=== PATIENT | female | born 1935 | race Hispanic/Latino ===

== ENCOUNTER 2021-06-10 23:22 | Emergency (ER) | payer OTHER ==
--- OUTSIDE RECORDS SUMMARY | 2021-06-10 23:24 | XMS REPORT | Continuity of Care Document ---
:1935 Author Organization [facility] t Address 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 Essential Essential Problem Active Halima harmane hypertensi Hypertensi 05-22 Fa fredrick on on 00:00: Practic 00 e Gastroesop Gastroesop Problem Active [facility] hageal hageal 05-22 Family reflux Reflux 00:00: Practic disease Disease 00 e Arthritis Arthritis Problem Active Halima isabel 05-22 Family 00:00: Practic 00 e Allergies, Adverse Reactions, Alerts Allergy Allergy Status Severity Reaction(s) Onset Inactive Treating Comm ents Source Name Type Date Date Clinician Peniclli Adverse Active Info Not [facility] PENICILL Allergy Active [facility] to Family substanc Practic e e Social History Smoking Status Start Date Stop Date Source Never Smoker [facility] Medications Ordered Filled Start Stop Current Ordering Indication Dosage Frequency Signature Comments Components Source Medication Medication Date Date Medication? Clinician (SIG) Name Name Tramadol Tramadol Yes Jose Alberto [address] [facility] 6-30 [facility] anastrozole anastrozole No 1 Q1D anastrozol [place] 1 mg tablet 1 mg tablet e 1 mg Family Take 1 Take 1 tablet Practic tablet tablet Take 1 e every day every day tablet by oral by oral every day route. route. by oral route. hydrochloro hydrochloro No 1 Q1D hydrochlor [place] thiazide thiazide othiazide Rocio alcala 12.5 mg 12.5 mg 12.5 mg Practi c tablet Take tablet Take tablet e 1 tablet 1 tablet Take 1 every day every day tablet by oral by oral every day route. route. by oral route. Hydrochloro Hydrochloro Yes Jose Alberto not [facility] thiazide thiazide Ring defined [facility] omeprazole omeprazole No 1 Q1D omeprazole [place] 20 mg 20 mg 20 mg Family delayed delayed delayed Practi c release,dis release,dis release,di e integrating integrating sintegrati tablet Take tablet Take ng tablet 1 tablet 1 tablet Take 1 every day every day tablet by oral by oral every day route route by oral before before route meals. meals. before meals. Anastrozole Anastrozole Yes Jose Alberto not [facility] Ring defined [facility] Omeprazole Omeprazole Yes Jose Alberto not [facility] Ring defined [facility] Losartan Losartan Yes Jose Alberto not [facility] Potassium Potassium Ring defined Sofia [facility] Procedures This patient has no known procedures. Encounters Start End Encounter Admission Attending Care Care Encounter Source Date/Time Date/Time Type Type Clinicians Facility Department ID 2021-02-22 2021-02-22 [id number]:00 00:00:00 Iliana [id number] Mary [id number] 2020-10-06 2020-10-06 Outpatient [facility] [id number] [facility] 2020-09-29 2020-09-29 Outpatient [facility] [id number] [facility] 2020-09-22 2020-09-22 Outpatient [facility] [id number] [facility] 2020-09-10 2020-09-10 Out[facility] [id number] [facility] 2020-05-19 2020-05-19 [facility] [id number] [address] 08:30:00 08:30:00 [facility] 2020-02-24 2020-02-24 [facility] [id number] 14:30:00 14:30:00 [facility] 2020-02-18 2020-02-18 Rachel [facility] [place] - [id number] V illage 00:00:00 00:00:00 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 2020-01-29 2020-01-29 [facility] [id number] 14:19:00 14:19:00 [facility] 2020-01-28 2020-01-28 [facility] [id number] 10:45:00 10:45:00 [facility] 2019-06-12 2019-06-12 [facility] [id number] [address] 11:07:00 11:07:00 [facility] 2019-06-06 2019-06-06 [facility] [id number] 10:00:00 10:00:00 [facility] 2019-05-20 2019-05-20 [facility] [id number] 09:30:00 09:30:00 t Bone Bone and [facility] Clinics Results This patient has no known results.
[2021-06-11] MEDS ORDERED: cloNIDine HCL 0.1 MG TAB ONE (00:56)
--- NOTE | 2021-06-11 02:00 | EDPHYS ---
Physician Documentation [facility] Name: Kelly Phillips Age: 86 yrs Sex: Female : 1935 Arrival Date: 06/10/2021 Time: 23:24 Bed 20 Private MD: ED Physician Duc Chen HPI: 06/11 01:56 This 86 yrs old Female presents to ER via Ambulatory with complaints of High pkl Blood Pressure. 01:56 Onset: The symptoms/episode began/occurred today. Associated signs and symptoms: The pkl patient has no apparent associated signs or symptoms. Historical: - Allergies: 06/10 23:37 PENICILLINS; bs2 - Home Meds: 23:37 Unable to obtain [Active]; bs2 - PMHx: 23:37 Unable to Obtain; bs2 - PSHx: 23:37 tumor removal RT breast; bs2 - Immunization history:: Client reports receiving the 2nd dose of the Covid vaccine, Flu vaccine is up to date. - Social history:: Smoking status: Patient denies any tobacco usage or history of. ROS: 06/11 01:56 Eyes: Negative for injury, pain, redness, and discharge, ENT: Negative for injury, pkl pain, and discharge, Neck: Negative for injury, pain, and swelling. Cardiovascular: Positive for hypertension. Respiratory: Negative for cough, shortness of breath. Abdomen/GI: Negative for abdominal pain, nausea, vomiting, and diarrhea. Back: Negative for acute changes. : Negative for urinary symptoms. MS/extremity: Negative for acute changes. Skin: Negative for rash. Neuro: Negative for altered mental status, loss of consciousness. Exam: 01:56 Head/Face: Normocephalic, atraumatic. Eyes: Pupils equal round and reactive to light, pkl extra-ocular motions intact. Lids and lashes normal. Conjunctiva and sclera are non-icteric and not injected. Cornea within normal limits. Periorbital areas with no swelling, redness, or edema. ENT: Nares patent. No nasal discharge, no septal abnormalities noted. Tympanic membranes are normal and external auditory canals are clear. Oropharynx with no redness, swelling, or masses, exudates, or evidence of obstruction, uvula midline. Mucous membranes moist. Neck: Trachea midline, no thyromegaly or masses palpated, and no cervical lymphadenopathy. Supple, full range of motion without nuchal rigidity, or vertebral point tenderness. No Meningismus. Chest/axilla: Normal chest wall appearance and motion. Nontender with no deformity. No lesions are appreciated. Cardiovascular: Regular rate and rhythm with a normal S1 and S2. No gallops, murmurs, or rubs. Normal PMI, no JVD. No pulse deficits. Respiratory: Lungs have equal breath sounds bilaterally, clear to auscultation and percussion. No rales, rhonchi or wheezes noted. No increased work of breathing, no retractions or nasal flaring. Abdomen/GI: Soft, non-tender, with normal bowel sounds. No distension or tympany. No guarding or rebound. No evidence of tenderness throughout. Back: No spinal tenderness. No costovertebral tenderness. Full range of motion. Skin: Warm, dry with normal turgor. Normal color with no rashes, no lesions, and no evidence of cellulitis. MS/ Extremity: Pulses equal, no cyanosis. Neurovascular intact. Full, normal range of motion. Neuro: Awake and alert, GCS 15, oriented to person, place, time, and situation. Cranial nerves II-XII grossly intact. Motor strength 5/5 in all extremities. Sensory grossly intact. Cerebellar exam normal. Normal gait. Vital Signs: 06/10 23:33 BP 212 / 80; Pulse 108; Resp 16; Temp 97.6; Pulse Ox 99% on R/A; Weight 72.57 kg (R); bs2 Height 5 ft. 5 in. (165.10 cm); Pain 0/10; 06/11 00:15 BP 196 / 79; Pulse 98; Resp 16; Pulse Ox 98% on R/A; jb4 01:00 BP 197 / 85; Pulse 103; Resp 15; Pulse Ox 97% on R/A; jb4 01:42 BP 166 / 70; Pulse 97; Resp 16; Temp 98.0; Pulse Ox 98% ; ds4 06/10 23:33 Body Mass Index 26.63 (72.57 kg, 165.10 cm) bs2 MDM: 06/10 23:54 Patient medically screened. pkl 06/11 01:58 Data reviewed: vital signs, nurses notes. pkl Administered Medications: 00:40 Drug: cloNIDine 0.1 mg Route: PO; jb4 02:08 Follow up: Response: No adverse reaction; Marked relief of symptoms; Temperature is jb4 decreased Disposition Summary: 06/11/21 02:00 Discharge Ordered Location: Home pkl Problem: new pkl Symptoms: have improved pkl Condition: Stable pkl Diagnosis - Hypertension pkl Followup: pkl - With: Private Physician - When: 1 week - Reason: Re-evaluation by your physician Discharge Instructions: - Discharge Summary Sheet pkl Forms: - Medication Reconciliation Form pkl - Thank You Letter pkl - Antibiotic Education pkl - Prescription Opioid Use pkl Prescriptions: - Carvedilol 12.5 mg Oral Tablet - take 1 tablet by ORAL route 2 times per day with food; 60 tablet; Refills: 0, pkl Product Selection Permitted Signatures: Duc Chen MD MD pkl Saeed Rojas, RN RN jb4 Joycelyn Wells RN RN bs2
--- NOTE | 2021-06-11 02:00 | ER ---
Nurse's Notes [facility] Name: Kelly Phillips Age: 86 yrs Sex: Female : 1935 Arrival Date: 06/10/2021 Time: 23:24 Bed 20 Private MD: Diagnosis: Hypertension Presentation: 06/10 23:33 Chief complaint: Spouse and/or significant other states: high blood pressure 237/84 at bs2 home, no hx of medications. Coronavirus screen: At this time, the client does not indicate any symptoms associated with coronavirus-19. Ebola Screen: Patient negative for fever greater than or equal to 101.5 degrees Fahrenheit, and additional compatible Ebola Virus Disease symptoms Patient denies exposure to infectious person. Patient denies travel to an Ebola-affected area in the 21 days before illness onset. No symptoms or risks identified at this time. Initial Sepsis Screen: Does the patient meet any 2 criteria? No. Patient's initial sepsis screen is negative. Does the patient have a suspected source of infection? No. Patient's initial sepsis screen is negative. Risk Assessment: Do you want to hurt yourself or someone else? Patient reports no desire to harm self or others. Onset of symptoms was June 10, 2021. 23:33 Method Of Arrival: Ambulatory bs2 23:33 Acuity: JASMINA 3 bs2 Triage Assessment: 23:37 General: Appears in no apparent distress. comfortable, obese, well groomed, well bs2 developed, well nourished, Behavior is calm, cooperative, appropriate for age. Pain: Denies pain. Historical: - Allergies: 23:37 PENICILLINS; bs2 - Home Meds: 23:37 Unable to obtain [Active]; bs2 - PMHx: 23:37 Unable to Obtain; bs2 - PSHx: 23:37 tumor removal RT breast; bs2 - Immunization history:: Client reports receiving the 2nd dose of the Covid vaccine, Flu vaccine is up to date. - Social history:: Smoking status: Patient denies any tobacco usage or history of. Screenin:45 Abuse screen: Denies threats or abuse. Nutritional screening: No deficits noted. jb4 Tuberculosis screening: No symptoms or risk factors identified. 23:45 Fall Risk None identified. jb4 Assessment: 23:45 General: Appears in no apparent distress. comfortable, Behavior is calm, cooperative. jb4 Pain: Denies pain. Neuro: Level of Consciousness is awake, alert, obeys commands, Oriented to person, place, time, situation. Cardiovascular: Patient's skin is warm and dry. Respiratory: Airway is patent Respiratory effort is even, unlabored, Respiratory pattern is regular, symmetrical. GI: No signs and/or symptoms were reported involving the gastrointestinal system. : No signs and/or symptoms were reported regarding the genitourinary system. EENT: No signs and/or symptoms were reported regarding the EENT system. Derm: Skin is intact, Skin is pink, warm \T\ dry. Musculoskeletal: Circulation, motion, and sensation intact. Range of motion: intact in all extremities. 06/11 01:00 Reassessment: Patient appears in no apparent distress at this time. Patient and/or jb4 family updated on plan of care and expected duration. Pain level reassessed. Patient is alert, oriented x 3, equal unlabored respirations, skin warm/dry/pink. 02:06 Reassessment: Patient appears in no apparent distress at this time. Patient and/or jb4 family updated on plan of care and expected duration. Pain level reassessed. Patient is alert, oriented x 3, equal unlabored respirations, skin warm/dry/pink. Vital Signs: 06/10 23:33 BP 212 / 80; Pulse 108; Resp 16; Temp 97.6; Pulse Ox 99% on R/A; Weight 72.57 kg (R); bs2 Height 5 ft. 5 in. (165.10 cm); Pain 0/10; 06/11 00:15 BP 196 / 79; Pulse 98; Resp 16; Pulse Ox 98% on R/A; jb4 01:00 BP 197 / 85; Pulse 103; Resp 15; Pulse Ox 97% on R/A; jb4 01:42 BP 166 / 70; Pulse 97; Resp 16; Temp 98.0; Pulse Ox 98% ; ds4 06/10 23:33 Body Mass Index 26.63 (72.57 kg, 165.10 cm) bs2 ED Course: 06/10 23:24 Patient arrived in ED. cf2 23:36 Triage completed. bs2 23:37 Arm band placed on right wrist. bs2 23:45 Patient has correct armband on for positive identification. Bed in low position. Call jb4 light in reach. Side rails up X 1. Pulse ox on. NIBP on. 23:54 Duc Chen MD is Attending Physician. pkl 06/11 00:20 Saeed Rojas, RN is Primary Nurse. jb4 02:07 No provider procedures requiring assistance completed. Patient did not have IV access jb4 during this emergency room visit. Administered Medications: 00:40 Drug: cloNIDine 0.1 mg Route: PO; jb4 02:08 Follow up: Response: No adverse reaction; Marked relief of symptoms; Temperature is jb4 decreased Outcome: 02:00 Discharge ordered by . pkl 02:07 Discharged to home via wheelchair, with family. jb4 02:07 Condition: stable 02:07 Discharge instructions given to patient, family, Instructed on discharge instructions, follow up and referral plans. medication usage, Demonstrated understanding of instructions, follow-up care, medications, Prescriptions given X 1. 02:08 Patient left the ED. jb4 Signatures: Duc Chen MD MD pkl Daniel Brock ds4 Saeed Rojas, RN RN jb4 Taylor Márquez cf2 Joycelyn Wells RN RN bs2
[2021-06-11 04:11] VITALS: BP 166/70; TEMP 98; O2SAT 98
== END 2021-06-11 02:08 | disposition home or self-care (01) ==
LOC: ER 23:22
DX: I10 Essential (primary) hypertension (principal); Z88.0 Allergy status to penicillin
CPT/HCPCS: 99283

== ENCOUNTER 2021-10-24 20:15 | Emergency (ER) | payer OTHER ==
--- OUTSIDE RECORDS SUMMARY | 2021-10-24 20:18 | XMS REPORT | Continuity of Care Document ---
:1935 Author Organization [facility] t Address [address] [place] [address] Care Team Providers Name Role Phone Love-Concepcióno_A_AH Attending Clinician Unavailable Canales_M Attending Clinician Unavailable Mary Hollins Attending Clinician [phone] Love-Magdaayo_A_AH Admitting Clinician Unavailable Canales_M Admitting Clinician Unavailable Payers Payer Name Policy Type Policy Number Effective Date Expiration Date S stanley [facility] [place] - [id number] 2019 [employer] (MEDICARE 00:00:00 REPLACEMENT/ADVANTA GE - HMO) [facility] [id number] 2021 (MEDICARE 00:00:00 REPLACEMENT HMO) Problems Condition Condition Condition Status Onset Resolution Last Treating Co mments Source Name Details Category Date Date Treatment Clinician Date 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 Clinician (SIG) Name Name Tramadol Tramadol Yes Jose Alberto [address] [facility] HCl HCl 6-30 [facility] Clinics Hydrochloro Hydrochloro Yes Jose Alberto not [facility] thiazide thiazide Ring defined [facility] Clinics Anastrozole Anastrozole Yes Jose Alberto not [facility] Ring defined [facility] Clinics Omeprazole Omeprazole Yes Jose Alberto not [facility] Ring defined [facility] Clinics Losartan Losartan Yes Jose Alberto not [facility] Potassium Potassium Ring defined Sofia kes - [facility] ent Clinics anastrozole anastrozole No 1 Q1D anastrozol [place] 1 mg tablet 1 mg tablet e 1 mg Family Take 1 Take 1 tablet Practic tablet tablet Take 1 e every day every day tablet by oral by oral every day route. route. by oral route. hydrochloro hydrochloro No 1 Q1D hydrochlor [place] thiazide thiazide othiazide Fa fredrick 12.5 mg 12.5 mg 12.5 mg Practi c tablet Take tablet Take tablet e 1 tablet 1 tablet Take 1 every day every day tablet by oral by oral every day route. route. by oral route. omeprazole omeprazole No 1 Q1D omeprazole [facility] 20 mg 20 mg 20 mg Family delayed delayed delayed Practi c release,dis release,dis release,di e integrating integrating sintegrati tablet Take tablet Take ng tablet 1 tablet 1 tablet Take 1 every day every day tablet by oral by oral every day route route by oral before before route meals. meals. before meals. Procedures This patient has no known procedures. Encounters Start End Encounter Admission Attending Care Care Encounter Source Date/Time Date/Time Type Type Clinicians Facility Department ID 2021-05-17 2021-05-17 Outpatient Cachorro MARIE [facility]FP [id number] [facility] 02:54:00 02:54:00 _A_AH [id number] Family Practic e 2021-02-22 2021-02-22 [place] [id number] [facility] 11:38:00 11:38:00 0405 [facility] 2021-02-22 2021-02-22 Outpatient Hollins, DMG DMG [id number] 00:00:00 00:00:00 Iliana [id number] Mary [id number] 2021-02-19 2021-02-19 [id number] [facility] 11:15:00 11:15:00 0402 Medica l Group 2020-10-06 2020-10-06 Outpatient [facility] [id number] [facility] 2020-09-29 2020-09-29 Outpatient [facility] [id number] [facility] 2020-09-22 2020-09-22 Outpatient [facility] [id number] [facility] 2020-09-10 2020-09-10 Outpatient [facility]ML[facility] [id number] [facility] 2020-05-19 2020-05-19 [facility] [id number] [facility] 08:30:00 08:30:00 [facility] Clinics 2020-04-30 2020-04-30 Outpatient Love-Mbayo VFP VFP [address] [place] [address] 11:59:00 11:59:00 _A_AH [id number] Family Practic e 2020-04-20 2020-04-20 Outpatient Love-Mbayo VFP [facility]FP [address] [place] [address] 06:26:00 06:26:00 _A_AH [id number] Family Practic e 2020-03-30 2020-03-30 Outpatient Love-Mbayo VFP VFP [id number] 02:45:00 02:45:00 _A_AH [id number] Family Practic e 2020-02-24 2020-02-24 [facility] [id number] [address] 14:30:00 14:30:00 [facility] 2020-02-18 2020-02-18 Rachel [facility] [place] - [id number] V illage 00:00:00 00:00:00 [facility] 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 2020-01-29 2020-01-29 [facility] [id number] [address] 14:19:00 14:19:00 [facility] 2020-01-28 2020-01-28 [facility] [id number] 10:45:00 10:45:00 t [facility] [place] 2020-01-08 2020-01-08 Outpatient Cachorro [facility] [id number] [facility] 07:20:00 07:20:00 _A_AH [id number] Family Practic e 2019-06-12 2019-06-12 [facility] [id number] [facility] 11:07:00 11:07:00 [facility] 2019-06-06 2019-06-06 [facility] [id number] 10:00:00 10:00:00 [facility] 2019-05-20 2019-05-20 [facility] [id number] 09:30:00 09:30:00 [facility] Results This patient has no known results.
[2021-10-24] MEDS ORDERED: ACETAMINOPHEN 500 MG TAB ONE (21:20)
--- NOTE | 2021-10-25 00:10 | EDPHYS ---
Physician Documentation [facility] Name: Kelly Phillips Age: 86 yrs Sex: Female : 1935 Arrival Date: 10/24/2021 Time: 20:17 Bed 2 Private MD: ED Physician iMchael Harris HPI: 10/24 21:20 This 86 yrs old Female presents to ER via Wheelchair with complaints of Joint mh7 Pain all over. 21:20 Details of fall: The patient fell from an upright position, while walking, and struck a mh7 concrete surface. Onset: The symptoms/episode began/occurred today, 3 hour(s) ago. Associated injuries: The patient sustained right elbow, abrasion, painful injury, Right knee, contusion, painful injury. Severity of symptoms: At their worst the symptoms were mild, earlier today, in the emergency department the symptoms are unchanged, Did not take pain medication. Patient tripped and fell over a brick while outside walking this evening. She landed on her right elbow and right knee. Denies any head trauma or LOC. Denies any symptoms prior to falling including headache, neck pain, chest pain, abdominal pain, shortness of breath, nausea, vomiting, dizziness, numbness/tingling, or weakness. Family brought her to the ED due to her blood pressure being elevated at home after a fall. She has not taken any pain medication for her injuries.. Historical: - Allergies: 21:03 PENICILLINS; vg1 - Home Meds: 21:12 losartan 100 mg oral tab 1 tab nightly [Active]; hydrochlorothiazide 12.5 mg Oral cap 1 tw5 cap once daily [Active]; amlodipine 5 mg tab 1 tab once daily [Active]; carvedilol 12.5 mg oral tab 1 tab 2 times per day [Active]; omeprazole 20 mg Oral cpDR 1 cap once daily [Active]; - PSHx: 21:03 tumor removal RT breast; vg1 - Immunization history:: Client reports receiving the 2nd dose of the Covid vaccine. - Social history:: Smoking status: Patient denies any tobacco usage or history of. ROS: 21:20 Constitutional: Negative for fever, chills, and weight loss, Eyes: Negative for injury, mh7 pain, redness, and discharge, ENT: Negative for injury, pain, and discharge, Neck: Negative for injury, pain, and swelling, Cardiovascular: Negative for chest pain, palpitations, and edema, Respiratory: Negative for shortness of breath, cough, wheezing, and pleuritic chest pain, Abdomen/GI: Negative for abdominal pain, nausea, vomiting, diarrhea, and constipation, Back: Negative for injury and pain, : Negative for injury, bleeding, discharge, and swelling, Neuro: Negative for headache, weakness, numbness, tingling, and seizure, Psych: Negative for depression, anxiety, suicide ideation, homicidal ideation, and hallucinations, Allergy/Immunology: Negative for hives, rash, and allergies, Endocrine: Negative for neck swelling, polydipsia, polyuria, polyphagia, and marked weight changes, Hematologic/Lymphatic: Negative for swollen nodes, abnormal bleeding, and unusual bruising. Exam: 21:20 Constitutional: This is a well developed, well nourished patient who is awake, alert, mh7 and in no acute distress. Head/Face: Normocephalic, atraumatic. Eyes: Pupils equal round and reactive to light, extra-ocular motions intact. Lids and lashes normal. Conjunctiva and sclera are non-icteric and not injected. Cornea within normal limits. Periorbital areas with no swelling, redness, or edema. Neck: Trachea midline, no thyromegaly or masses palpated, and no cervical lymphadenopathy. Supple, full range of motion without nuchal rigidity, or vertebral point tenderness. No Meningismus. Chest/axilla: Normal chest wall appearance and motion. Nontender with no deformity. No lesions are appreciated. Cardiovascular: Regular rate and rhythm with a normal S1 and S2. No gallops, murmurs, or rubs. Normal PMI, no JVD. No pulse deficits. Respiratory: Lungs have equal breath sounds bilaterally, clear to auscultation and percussion. No rales, rhonchi or wheezes noted. No increased work of breathing, no retractions or nasal flaring. Abdomen/GI: Soft, non-tender, with normal bowel sounds. No distension or tympany. No guarding or rebound. No evidence of tenderness throughout. Back: No spinal tenderness. No costovertebral tenderness. Full range of motion. 21:20 Neuro: Awake and alert, GCS 15, oriented to person, place, time, and situation. Cranial nerves II-XII grossly intact. Motor strength 5/5 in all extremities. Sensory grossly intact. Cerebellar exam normal. Normal gait. Psych: Awake, alert, with orientation to person, place and time. Behavior, mood, and affect are within normal limits. 21:20 Musculoskeletal/extremity: Extremities: noted in the right elbow: abrasion, tenderness, Mild, noted in the Right anterior knee: contusion, pain, tenderness, Mild, ROM: intact in all extremities, Circulation is intact in all extremities. Sensation intact. Compartment Syndrome exam of affected extremity: is normal. no numbness, no tingling, no sensation deficit, no palor, no weak pulses, Joints: the right elbow displays tenderness, the right knee displays tenderness, Weight bearing: can bear weight with assistance only, uses walker, Tendon exam: specific tendon testing normal through active and passive range of motion 21:20 Skin: injury, abrasion(s), very small abrasion noted, of the right elbow, contusion(s), that are superficial, of the Right anterior knee. Vital Signs: 21:01 BP 154 / 57; Pulse 70; Resp 16; Temp 97.4; Pulse Ox 100% ; Weight 75.3 kg; Height 5 ft. vg1 5 in. (165.10 cm); 21:09 BP 172 / 63; Pulse 92; Resp 18; Pulse Ox 96% on R/A; tw5 22:39 BP 145 / 58; Pulse 70; Resp 18 S; Pulse Ox 97% on R/A; as6 12 00:20 BP 130 / 61; Pulse 71; Resp 18 S; Pulse Ox 99% on R/A; as6 10/24 21:01 Body Mass Index 27.62 (75.30 kg, 165.10 cm) vg1 MDM: 00:07 Differential diagnosis: abrasion, contusion, fracture. Data reviewed: vital signs, 7 nurses notes, radiologic studies, plain films. Data interpreted: Pulse oximetry: on room air is 97 %. Interpretation: normal. Counseling: I had a detailed discussion with the patient and/or guardian regarding: the historical points, exam findings, and any diagnostic results supporting the discharge/admit diagnosis, the presence of at least one elevated blood pressure reading (>120/80) during this emergency department visit, radiology results, the need for outpatient follow up, to return to the emergency department if symptoms worsen or persist or if there are any questions or concerns that arise at home. Response to treatment: the patient's symptoms have markedly improved after treatment. 00:[address] [facility] 10/24 21:16 Order name: Knee Right [address] [facility] Administered Medications: 10/24 21:22 Drug: Tylenol 1000 mg Route: PO; as6 21:43 Follow up: Response: No adverse reaction as6 Disposition Summary: 10/25/21 00:09 Discharge Ordered Location: Home [facility] Problem: [facility] Symptoms: have improved mh Condition: Stable [facility] Diagnosis - Contusion of right knee mh7 - Pain in right elbow mh7 - Fall on same level from slipping, tripping and stumbling with subsequent striking 7 against object Followup: [facility] - With: Private Physician - When: 1 - 2 days - Reason: Worsening of condition, Recheck today's complaints, Continuance of care, Re-evaluation by your physician Followup: [facility] - With: Jimi Martin MD - When: 1 - 2 days - Reason: Worsening of condition, Recheck today's complaints Discharge Instructions: - Discharge Summary Sheet 7 - Joint Pain 7 - Contusion, [id number] 7 - Fall Prevention in the Home, Adult, [id number] [facility] Forms: - Medication Reconciliation Form [facility] - Thank You Letter [facility] - Antibiotic Education 7 - Prescription Opioid Use [facility] Signatures: Dispatcher [employer] EDSabrina Lopez RN RN vg1 Michael Harris MD MD 7 Charley Tinajero tw5 Garland Rubi RN RN as6 Corrections: (The following items were deleted from the chart) 22:10 21:17 Elbow Right 3 View+RAD.RAD.BRZ ordered. EDMS EDMS
--- NOTE | 2021-10-25 00:10 | ER ---
Nurse's Notes [facility] Name: Kelly Phillips Age: 86 yrs Sex: Female : 1935 Arrival Date: 10/24/2021 Time: 20:17 Bed 2 Private MD: Diagnosis: Contusion of right knee;Pain in right elbow;Fall on same level from slipping, tripping and stumbling with subsequent striking against object Presentation: 10/24 20:58 Chief complaint: Chief complaint: Spouse and/or significant other states: pt fell vg1 today, tripped over a brick and fell onto Right knee and Right elbow. Denies hitting head, or LOC. states pt BP was 200s systolic. 21:01 Coronavirus screen: Vaccine status: Patient reports receiving the 2nd dose of the covid vg1 vaccine. Ebola Screen: Patient negative for fever greater than or equal to 101.5 degrees Fahrenheit, and additional compatible Ebola Virus Disease symptoms. Initial Sepsis Screen: Does the patient meet any 2 criteria? No. Patient's initial sepsis screen is negative. Does the patient have a suspected source of infection? No. Patient's initial sepsis screen is negative. Risk Assessment: Do you want to hurt yourself or someone else? Patient reports no desire to harm self or others. Onset of symptoms was October 24, 2021. 21:01 Method Of Arrival: Wheelchair vg1 21:01 Acuity: JASMINA 3 vg1 Triage Assessment: 21:03 General: Appears in no apparent distress. comfortable, Behavior is calm, cooperative. vg1 Pain: Complains of pain in Right knee and right elbow. Historical: - Allergies: 21:03 PENICILLINS; vg1 - Home Meds: 21:12 losartan 100 mg oral tab 1 tab nightly [Active]; hydrochlorothiazide 12.5 mg Oral cap 1 tw5 cap once daily [Active]; amlodipine 5 mg tab 1 tab once daily [Active]; carvedilol 12.5 mg oral tab 1 tab 2 times per day [Active]; omeprazole 20 mg Oral cpDR 1 cap once daily [Active]; - PSHx: 21:03 tumor removal RT breast; vg1 - Immunization history:: Client reports receiving the 2nd dose of the Covid vaccine. - Social history:: Smoking status: Patient denies any tobacco usage or history of. Screenin:10 Abuse screen: Denies threats or abuse. Denies injuries from another. Nutritional tw5 screening: No deficits noted. Tuberculosis screening: No symptoms or risk factors identified. Fall Risk Fall in past 12 months (25 points). Assessment: 21:11 General: Appears in no apparent distress. comfortable, Behavior is calm, cooperative, tw5 appropriate for age. Neuro: Level of Consciousness is awake, alert, obeys commands, Oriented to person, place, time. Derm:. Derm: Skin is intact, Skin is dry. Injury Description: Abrasion sustained to right elbow was sustained 2-4 hours ago. 23:45 Reassessment: No changes from previously documented assessment. Patient and/or family tw5 updated on plan of care and expected duration. Pain level reassessed. Patient is alert, oriented x 3, equal unlabored respirations, skin warm/dry/pink. Vital Signs: 21:01 BP 154 / 57; Pulse 70; Resp 16; Temp 97.4; Pulse Ox 100% ; Weight 75.3 kg; Height 5 ft. vg1 5 in. (165.10 cm); 21:09 BP 172 / 63; Pulse 92; Resp 18; Pulse Ox 96% on R/A; tw5 22:39 BP 145 / 58; Pulse 70; Resp 18 S; Pulse Ox 97% on R/A; as6 1206 00:20 BP 130 / 61; Pulse 71; Resp 18 S; Pulse Ox 99% on R/A; as6 12/05 21:01 Body Mass Index 27.62 (75.30 kg, 165.10 cm) vg1 ED Course: 10/24 20:17 Patient arrived in ED. wm 21:03 Triage completed. vg1 21:03 Michael Harris MD is Attending Physician. mh7 21:03 Arm band placed on. vg1 21:09 Charley Tinajero is Primary Nurse. tw5 21:10 Patient has correct armband on for positive identification. Placed in gown. Bed in low tw5 position. Call light in reach. Side rails up X 1. Adult w/ patient. Pulse ox on. NIBP on. Door closed. Noise minimized. Moved to private room. 22:11 Knee Right 3 View XRAY In Process Unspecified. EDMS 23:45 Assisted to bathroom. tw5 10/25 00:10 Jimi Martin MD is Referral Physician. mh7 00:21 No provider procedures requiring assistance completed. Patient did not have IV access as6 during this emergency room visit. Administered Medications: 10/24 21:22 Drug: Tylenol 1000 mg Route: PO; as6 21:43 Follow up: Response: No adverse reaction as6 Outcome: 10/25 00:09 Discharge ordered by . 7 00:21 Discharged to home via wheelchair, with family. as6 00:21 Condition: stable 00:21 Discharge instructions given to patient, Instructed on discharge instructions, follow up and referral plans. Demonstrated understanding of instructions, follow-up care. 00:21 Patient left the ED. as6 Signatures: Dispatcher [employer] EDMS Sabrina Calabrese RN RN vg1 Michael Harrsi MD MD 7 Apoorva Stallings Tiffany tw5 Garland Rubi RN RN as6 Corrections: (The following items were deleted from the chart) 10/24 21:03 20:58 Chief complaint: vg1 vg1
[2021-10-25 00:30] VITALS: TEMP 97.4
[2021-10-25 00:34] VITALS: BP 130/61; O2SAT 99
--- NOTE | 2021-10-25 11:28 | RAD REPORT ---
EXAM DESCRIPTION: RIGHT KNEE, 3 VIEW, XR. CLINICAL HISTORY: Pain after fall. COMPARISON: None. TECHNIQUE: AP, lateral and oblique views of the right knee. FINDINGS: There is no acute fracture or effusion in the right knee. No dislocation. Significant narr owing of the lateral compartment with subchondral sclerosis and moderate bony hypertrophy. Mild hyper trophic changes are seen along the medial distal femur and proximal tibia. There is normal bone test examiner alization. Vascular calcifications are present in the distal right thigh. IMPRESSION: 1. No acute finding within the right knee. 2. Significant lateral compartment osteoarthritis. Electronically signed by: Pily Jacobsen DO 10/24/2021 11:20 PM TILE LAYER DRAINAGE Due to temporary technical issues with the PACS/Fluency reporting system, reports are being signed by the in house radiologist without review as a courtesy to ensure prompt reporting. The interpreting r adiologist is fully responsible for the content of the report.
== END 2021-10-25 00:21 | disposition home or self-care (01) ==
LOC: ER 20:15
DX: S80.01XA Contusion of right knee, initial encounter (principal); M25.521 Pain in right elbow; W01.198A Fall on same level from slipping, tripping and stumbling with subsequent striking against other object, initial encounter; Y93.01 Activity, walking, marching and hiking; Z88.0 Allergy status to penicillin
CPT/HCPCS: 99284

== ENCOUNTER 2022-02-09 22:35 | Emergency (ER) | payer MEDICARE ==
--- OUTSIDE RECORDS SUMMARY | 2022-02-09 22:39 | XMS REPORT | Continuity of Care Document ---
:1935 Author Organization [facility] t Address [address] [place] [address] Care Team Providers Name Role Phone Gurvinder_Patricia Attending Clinician Unavailable Love-Mbayo_A_AH Attending Clinician Unavailable Mary Hollins Attending Clinician [phone] Prudence Gaston Admitting Clinician Unavailable Gurvinder_Patricia Admitting Clinician Unavailable Love-Mbayo_A_AH Admitting Clinician Unavailable Payers Payer Name Policy Type Policy Number Effective Date Expiration Date S [facility] [id number] 2021 (MEDICARE 00:00:00 REPLACEMENT HMO) [facility] [id number] 2019 [employer] (MEDICARE 00:00:00 REPLACEMENT/ADVANTA GE - HMO) Problems Condition Condition Condition Status Onset Resolution Last Treating Co mments Source Name Details Category Date Date Treatment Clinician Date Primary Primary Problem 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 Social History Smoking Status Start Date Stop Date Source Never Smoker [facility] Medications Ordered Filled Start Stop Current Ordering Indication Dosage Frequency Signature Comments Components Source Medication Medication Date Date Medication? Clinician (SIG) Name Name Tramadol Tramadol Yes Jose Alberto [address] [facility] HCl HCl 6-30 [facility] 00 [facility] anastrozole anastrozole No 1 Q1D anastrozol [place] [...] route. omeprazole omeprazole No 1 Q1D omeprazole [facility] 20 mg 20 mg 20 mg Family delayed delayed delayed Practi c release,dis release,dis release,di e integrating integrating sintegrati tablet Take tablet Take ng tablet 1 tablet 1 tablet Take 1 every day every day tablet by oral by oral every day route route by oral before before route meals. meals. before meals. Hydrochloro Hydrochloro Yes Jose Alberto not [facility] thiazide thiazide Ring defined [facility] ent [facility] Anastrozole Anastrozole Yes Jose Alberto not [facility] Ring defined [facility] ent [facility] Omeprazole Omeprazole Yes Jose Alberto not [facility] Ring defined [facility] Losartan Losartan Yes Jose Alberto not [facility] Potassium Potassium Ring defined [facility] Procedures This patient has no known procedures. Encounters Start End Encounter Admission Attending Care Care Encounter Source Date/Time Date/Time Type Type Clinicians Facility Department ID 2022-02-08 Outpatient [facility] [id number] [facility] 16:02[facility]01 [facility] 2021-12-15 Outpatient [facility] [id number] [facility] 12:01:20 [id number] kes - [facility] ent Clinics 2021-12-15 Outpatient [facility] [id number] [facility] 11:54:02 [id number] [facility] 2021-11-11 2021-11-11 [place] [id number] [facility] 10:30:00 10:30:00 1223 [facility] l [facility] 2021-05-17 2021-05-17 Outpatient LoveAdelfonarennilda [facility] [address] [place] [address] 02:54:00 02:54:00 _A_AH [id number] Family Practic e 2021-02-22 2021-02-22 [place] [id number] [facility] 11:38:00 11:38:00 0405 Med[facility] l [facility] 2021-02-22 2021-02-22 Outpatient Hollins, DMG DMG [id number] 00:00:00 00:00:00 Iliana [id number] Mary [id number] 2021-02-19 2021-02-19 [place] [id number] [facility] 11:15:00 11:15:00 0402 Medica l Group 2020-10-06 2020-10-06 Outpatient [facility] [id number] [facility] 2020-09-29 2020-09-29 Outpatient [facility] [id number] [facility] 2020-09-22 2020-09-22 Outpatient [facility] [id number] [facility] 2020-09-10 2020-09-10 Outpatient [facility] [id number] [facility] 2020-05-19 2020-05-19 [facility] [id number] 08:30:00 08:30:00 [facility] 2020-04-30 2020-04-30 Outpatient [facility] [address] 11:59:00 11:59:00 _A_AH [id number] Family Practic e 2020-04-20 2020-04-20 Outpatient [facility] [id number] 06:26:00 06:26:00 _A_AH [id number] Family Practic e 2020-03-30 2020-03-30 Outpatient Love-Concepcióno [facility]FP [facility] [address] [place] [address] 02:45:00 02:45:00 _A_AH [id number] Family Practic e 2020-02-24 2020-02-24 [facility] [id number] [address] 14:30:00 14:30:00 [facility] ent [facility] 2020-02-18 2020-02-18 Rachel P [place] - [id number] V illage 00:00:00 00:00:00 LoveJessie [facility] Fam ryan munguia DRY CHAIN PULLER: Medical - Practi c [address] _HOU_V@_ e [facility], [address] [address], [place] [address] , Ph. 2020-01-29 2020-01-29 [facility] [id number] [address] 14:19:00 14:19:00 [facility] ent Clinics 2020-01-28 2020-01-28 [facility] [id number] 10:45:00 10:45:00 t [facility] ent Clinics 2020-01-08 2020-01-08 Outpatient Love-Concepcióno VFP P [address] [place] [address] 07:20:00 07:20:00 _A_AH [id number] Family Practic e 2019-06-12 2019-06-12 [facility] [id number] [address] 11:07:00 11:07:00 t [facility] Clin[facility] 2019-06-06 2019-06-06 Outpatient Lynne Bhatt [id number] [address] 10:00:00 10:00:00 t [facility] ent [facility] 2019-05-20 2019-05-20 Outpatient Lynne Bhatt [id number] 09:30:00 09:30:00 t [facility] ent [facility] Results This patient has no known results.
[2022-02-10 01:21] LABS: Absolute Lymphocytes (CBC) 1.2 K/uL (0.7-4.9); Hematocrit 36.1 % (36.0-45.0); Lymphocytes % 12.6 % (15.3-44.8); MPV 7.7 fL (7.6-11.3); RBC Red Blood Cell Count 4.47 M/uL (3.86-4.86)
[2022-02-10 01:22] LABS: Protime INR 1.04
[2022-02-10 01:33] LABS: Albumin 3.9 g/dL (3.4-5.0); Bilirubin Direct 0.2 mg/dL (0-0.2); Bilirubin Total 0.8 mg/dL (0.2-1.0); Potassium 3.8 mmol/L (3.5-5.1); Protein, Total 7.4 g/dL (6.4-8.2); Troponin High Sensitivity 27.2 pg/mL (<58.9)
[2022-02-10 01:34] LABS: Magnesium 1.7 mg/dL (1.8-2.4)
[2022-02-10] MEDS ORDERED: MAGNESIUM SULFATE 1 gm IVPB 1 GM/100 ML BAG IV ONE (02:02)
[2022-02-10] MEDS ORDERED: HYDRALAZINE HCL 20 MG/ML VIAL ONE (02:12)
--- NOTE | 2022-02-10 02:49 | EDPHYS ---
Physician Documentation [facility] Name: Kelly Phillips Age: 86 yrs Sex: Female : 1935 Arrival Date: 02/09/2022 Time: 22:40 Bed 2 Private MD: Levi Rosa E ED Physician Delvis Robbins HPI: 02/10 02:37 This 86 yrs old Female presents to ER via Wheelchair with complaints of jr8 Abdominal Pain. 02:37 The patient presents with abdominal pain in the epigastric area. Onset: The jr8 symptoms/episode began/occurred acutely. The symptoms do not radiate. Associated signs and symptoms: none. The symptoms are described as stabbing. Modifying factors: The symptoms are alleviated by nothing, the symptoms are aggravated by nothing. Severity of pain: At its worst the pain was mild in the emergency department the pain is unchanged. The patient has not experienced similar symptoms in the past. The patient has not recently seen a physician. Historical: - Allergies: 02/09 23:09 PENICILLINS; ss7 - Home Meds: 23:09 omeprazole 20 mg Oral cpDR 1 cap once daily [Active]; hydrochlorothiazide 12.5 mg Oral ss7 cap 1 cap once daily [Active]; losartan 100 mg Oral tab 1 tab nightly [Active]; carvedilol 12.5 mg Oral tab 1 tab 2 times per day [Active]; amlodipine 5 mg tab 1 tab once daily [Active]; anastrozole 1 mg oral tab 1 tab once daily [Active]; - PMHx: 23:09 Hypertensive disorder; gerd; ss7 - PSHx: 23:09 tumor removal RT breast; ss7 23:12 Appendectomy; ss7 - Immunization history:: Adult Immunizations Client reports receiving the 2nd dose of the Covid vaccine, Pneumococcal vaccine is not up to date, Flu vaccine is up to date. - Social history:: Smoking status: Patient denies any tobacco usage or history of. ROS: 02/10 02:37 Eyes: Negative for injury, pain, redness, and discharge, ENT: Negative for injury, jr8 pain, and discharge, Neck: Negative for injury, pain, and swelling, Cardiovascular: Negative for chest pain, palpitations, and edema, Respiratory: Negative for shortness of breath, cough, wheezing, and pleuritic chest pain, Back: Negative for injury and pain, MS/Extremity: Negative for injury and deformity, Skin: Negative for injury, rash, and discoloration, Neuro: Negative for headache, weakness, numbness, tingling, and seizure. Abdomen/GI: Positive for abdominal pain, Negative for nausea, vomiting, and diarrhea. Exam: 02:37 Constitutional: This is a well developed, well nourished patient who is awake, alert, jr8 and in no acute distress. Neck: Trachea midline, no thyromegaly or masses palpated, and no cervical lymphadenopathy. Supple, full range of motion without nuchal rigidity, or vertebral point tenderness. No Meningismus. Cardiovascular: Regular rate and rhythm with a normal S1 and S2. No gallops, murmurs, or rubs. Normal PMI, no JVD. No pulse deficits. Respiratory: Lungs have equal breath sounds bilaterally, clear to auscultation and percussion. No rales, rhonchi or wheezes noted. No increased work of breathing, no retractions or nasal flaring. Abdomen/GI: Soft, non-tender, with normal bowel sounds. No distension or tympany. No guarding or rebound. No evidence of tenderness throughout. Back: No spinal tenderness. No costovertebral tenderness. Full range of motion. Skin: Warm, dry with normal turgor. Normal color with no rashes, no lesions, and no evidence of cellulitis. MS/ Extremity: Pulses equal, no cyanosis. Neurovascular intact. Full, normal range of motion. Neuro: Awake and alert, GCS 15, oriented to person, place, time, and situation. Cranial nerves II-XII grossly intact. Motor strength 5/5 in all extremities. Sensory grossly intact. Vital Signs: 02/09 23:12 BP 198 / 61; Pulse 42; Resp 16; Temp 98.8; Pulse Ox 98% ; Weight 72.57 kg; Height 5 ft. ss7 5 in. (165.10 cm); Pain 6/10; 02/10 02:01 BP 200 / 72; Pulse 50; Resp 21 S; Pulse Ox 100% on R/A; lg3 02/09 23:12 Body Mass Index 26.63 (72.57 kg, 165.10 cm) ss7 MDM: 02/09 23:47 Patient medically screened. jr8 02/10 02:37 Data reviewed: vital signs, nurses notes, lab test result(s), EKG, radiologic studies, plain films, ultrasound. Data interpreted: Pulse oximetry: on room air is 100 %. Interpretation: normal. Counseling: I had a detailed discussion with the patient and/or guardian regarding: the historical points, exam findings, and any diagnostic results supporting the discharge/admit diagnosis, lab results, radiology results, the need for outpatient follow up, a patrol inspector, a family practitioner, to return to the emergency department if symptoms worsen or persist or if there are any questions or concerns that arise at home. Response to treatment: the patient's symptoms have resolved after treatment. ED course: Discussed need for further BP management along with incidental EKG findings. Needs to f/u with cardiology and FM. Patient and family good with this and if worse would come back for reevaluation . 02/09 23:48 Order name: Basic Metabolic Panel; Complete Time: 02/09 23:48 Order name: CBC with Diff; Complete Time: 02/09 23:48 Order name: LFT's; Complete Time: 02/09 23:48 Order name: Magnesium; Complete Time: 02/09 23:48 Order name: NT PRO-BNP; Complete Time: 02/09 23:48 Order name: PT-INR; Complete Time: 02/09 23:48 Order name: Troponin HS; Complete Time: 02/09 23:48 Order name: XRAY Chest (1 view) 02/09 23:48 Order name: EKG; Complete Time: 23:49 02/09 23:48 Order name: Cardiac monitoring; Complete Time: :02/09 23:48 Order name: Lipase; Complete Time: 02/10 00:13 Order name: US Abdomen Limited 02/09 23:48 Order name: EKG - Nurse/Tech; Complete Time: 02/09 23:48 Order name: IV Saline Lock; Complete Time: 02/09 23:48 Order name: Labs collected and sent; Complete Time: 02/09 23:48 Order name: O2 Per Protocol; Complete Time: : jr8 02/09 23:48 Order name: O2 Sat Monitoring; Complete Time: : jr8 Administered Medications: 02:11 Drug: Magnesium Sulfate 1 grams Route: IVPB; Infused Over: 1 hrs; Site: right lg3 antecubital; 02:11 Follow up: Response: No adverse reaction; IV Status: Completed infusion; IV Intake: lg3 100ml 02:19 Drug: hydrALAZINE 10 mg Route: IVP; Site: right antecubital; lg3 02:20 Follow up: Response: No adverse reaction lg3 Disposition Summary: 02/10/22 02:48 Discharge Ordered Location: Home jr8 Problem: new jr8 Symptoms: have improved jr8 Condition: Stable jr8 Diagnosis - Epigastric pain jr8 - Essential (primary) hypertension jr8 - Other specified heart block jr8 Followup: jr8 - With: Carrillo Coley MD - When: 2 - 3 days - Reason: Recheck today's complaints, Continuance of care, Re-evaluation by your physician Discharge Instructions: - Discharge Summary Sheet jr8 - Abdominal Pain, Adult jr8 - Hypertension, Adult jr8 Forms: - Medication Reconciliation Form jr8 - Thank You Letter jr8 - Antibiotic Education jr8 - Prescription Opioid Use jr8 Addendum: 02/11/2022 05:33 Co-signature as Attending Physician, Delvis Robbins MD I agree with the assessment and c ellison plan of care. Signatures: Dispatcher [employer] Delvis Sandoval MD MD cha Roszak, Josh, PA PA jr8 Elizabeth Rosen RN RN lg3 Lou Wells RN RN ss7
--- NOTE | 2022-02-10 02:49 | ER ---
Nurse's Notes [facility] Name: Kelly Phillips Age: 86 yrs Sex: Female : 1935 Arrival Date: 02/09/2022 Time: 22:40 Bed 2 Private MD: Levi Rosa E Diagnosis: Epigastric pain;Essential (primary) hypertension;Other specified heart block Presentation: 02/09 23:07 Chief complaint: Patient states: Pt c/o abdominal pain that began today. Denies ss7 n/v/d/fever. Denies any symptoms. Coronavirus screen: Vaccine status: Patient reports receiving the 2nd dose of the covid vaccine. Ebola Screen: No symptoms or risks identified at this time. Initial Sepsis Screen: Does the patient meet any 2 criteria? No. Patient's initial sepsis screen is negative. Does the patient have a suspected source of infection? No. Patient's initial sepsis screen is negative. Risk Assessment: Do you want to hurt yourself or someone else? Patient reports no desire to harm self or others. 23:07 Method Of Arrival: Wheelchair 7 23:07 Acuity: JASMINA 3 ss7 23:18 Onset of symptoms was February 09, 2022. 7 Triage Assessment: 23:12 General: Appears in no apparent distress. Behavior is calm, cooperative, appropriate ss7 for age. Pain: Complains of pain in epigastric. 02/10 01:10 GI: Bowel sounds present X 4 quads. kd3 Historical: - Allergies: 02/09 23:09 PENICILLINS; ss7 - Home Meds: 23:09 omeprazole 20 mg Oral cpDR 1 cap once daily [Active]; hydrochlorothiazide 12.5 mg Oral ss7 cap 1 cap once daily [Active]; losartan 100 mg Oral tab 1 tab nightly [Active]; carvedilol 12.5 mg Oral tab 1 tab 2 times per day [Active]; amlodipine 5 mg tab 1 tab once daily [Active]; anastrozole 1 mg oral tab 1 tab once daily [Active]; - PMHx: 23:09 Hypertensive disorder; gerd; ss7 - PSHx: 23:09 tumor removal RT breast; ss7 23:12 Appendectomy; ss7 - Immunization history:: Adult Immunizations Client reports receiving the 2nd dose of the Covid vaccine, Pneumococcal vaccine is not up to date, Flu vaccine is up to date. - Social history:: Smoking status: Patient denies any tobacco usage or history of. Screenin/24 01:09 Abuse screen: Denies threats or abuse. Denies injuries from another. Nutritional kd3 screening: No deficits noted. Tuberculosis screening: No symptoms or risk factors identified. Fall Risk IV access (20 points). Assessment: 01:10 GI: Abd is soft X 4 quads. kd3 Vital Signs: 02/09 23:12 BP 198 / 61; Pulse 42; Resp 16; Temp 98.8; Pulse Ox 98% ; Weight 72.57 kg; Height 5 ft. ss7 5 in. (165.10 cm); Pain 6/10; 02/10 02:01 BP 200 / 72; Pulse 50; Resp 21 S; Pulse Ox 100% on R/A; lg3 02/09 23:12 Body Mass Index 26.63 (72.57 kg, 165.10 cm) ss7 ED Course: 02/09 22:40 Patient arrived in ED. es 22:40 Levi Rosa MD is Private Physician. es 23:09 Triage completed. ss7 23:12 Arm band placed on right wrist. EKG completed in triage. Results shown to MD. ss7 23:47 Shravan Baez PA is PHCP. jr8 23:47 Delvis Robbins MD is Attending Physician. jr8 02/10 00:41 Cassie Varma, REINA is Primary Nurse. kd3 00:48 US Abdomen Limited In Process Unspecified. EDMS 01:10 Patient has correct armband on for positive identification. Bed in low position. Side kd3 rails up X2. 01:10 Inserted saline lock: 20 gauge in right antecubital area, using aseptic technique. kd3 01:19 XRAY Chest (1 view) In Process Unspecified. EDMS 02:47 Carrillo Coley MD is Referral Physician. jr8 03:28 No provider procedures requiring assistance completed. IV discontinued, intact, kd3 bleeding controlled, No redness/swelling at site. Pressure dressing applied. Administered Medications: 02:11 Drug: Magnesium Sulfate 1 grams Route: IVPB; Infused Over: 1 hrs; Site: right lg3 antecubital; 02:11 Follow up: Response: No adverse reaction; IV Status: Completed infusion; IV Intake: lg3 100ml 02:19 Drug: hydrALAZINE 10 mg Route: IVP; Site: right antecubital; lg3 02:20 Follow up: Response: No adverse reaction lg3 Intake: 02:11 IV: 100ml; Total: 100ml. lg3 Outcome: 02:48 Discharge ordered by MD. crow 03:28 Discharged to home via wheelchair. kd3 03:28 Condition: stable 03:28 Discharge instructions given to patient, Instructed on discharge instructions, follow up and referral plans. Demonstrated understanding of instructions, follow-up care, Prescriptions given X 1. 03:28 Patient left the ED. kd3 Signatures: Dispatcher [employer] EDDilma Chin Josh, PA PA jr8 Elizabeth Rosen, RN RN ria3 Cassie Varma RN RN kd3 Lou Wells RN RN ss7
[2022-02-10 04:23] VITALS: TEMP 98.8
[2022-02-10 04:25] VITALS: BP 200/72; O2SAT 100
--- NOTE | 2022-02-10 07:42 | EKG ---
Test Date: 2022-02-10 Test Time: 02:17:23 Director Of Occupational Health: MEASUREMENT RESULTS: Intervals: Rate: 50 OK: 194 QRSD: 140 QT: 550 QTc: 501 [place]: P: 67 OK: 194 QRS: 9 T: 99 INTERPRETIVE STATEMENTS: Sinus bradycardia Left bundle branch block Abnormal ECG Compared to ECG 09/16/2016 11:05:35 Sinus rhythm no longer present Left-axis deviation no longer present Electronically Signed On 02-10-22 07:41:14 CDT by Carrillo Coley
--- NOTE | 2022-02-10 07:42 | EKG ---
Test Date: 2022-02-10 Test Time: 01:04:05 [facility]: ALICIA MEASUREMENT RESULTS: Intervals: Rate: 56 [place]: QRSD: 146 QT: 476 QTc: 459 [place]: P: 64 [place]: QRS: 16 T: 120 INTERPRETIVE STATEMENTS: Sinus rhythm with 2nd degree AV block (Mobitz I) with 2:1 AV conduction Left bundle branch block Abnormal ECG Compared to ECG 09/16/2016 11:05:35 Left-axis deviation no longer present Electronically Signed On 02-10-22 07:41:16 CDT by Carrillo Coley
--- NOTE | 2022-02-10 18:46 | RAD REPORT ---
EXAM DESCRIPTION: US - Abdomen Exam Limited - 02/10/2022 1:23 am CLINICAL HISTORY: 86 years Female, R/O GB;Abd pain COMPARISON: None. TECHNIQUE: Sonographic imaging of the gallbladder was performed. FINDINGS: Gallbladder wall measures 4.7 mm in width and appears mildly thickened. No obvious gallsto melita. Gallbladder is normal in size. Common bile duct measures 7 mm in width and is within normal limi ts for age. No evidence of pericholecystic fluid. IMPRESSION: Mildly thickened appearance of the gallbladder of uncertain significance. No evidence of cholelithiasis. Electronically signed by: Jose Sosa MD 02/10/2022 1:08 AM CDT Due to temporary technical issues with the PACS/Fluency reporting system, reports are being signed by the in house radiologists without review as a courtesy to insure prompt reporting. The interpreting radiologist is fully responsible for the content of the report.
--- NOTE | 2022-02-10 19:35 | RAD REPORT ---
EXAM DESCRIPTION: RAD - Chest Single View - 02/10/2022 1:17 am CLINICAL HISTORY: 86 years Female, CHEST PAIN COMPARISON: None. FINDINGS: There are a few streaky opacities in both lung bases suggestive of atelectasis or scarring . No consolidation. No pneumothorax. No significant pleural effusion. Cardiac silhouette appears mildly enlarged. Osseous structures are unremarkable. IMPRESSION: Mild bibasilar atelectasis versus scarring. Electronically signed by: Jose Sosa MD 02/10/2022 1:26 AM CDT Due to temporary technical issues with the PACS/Fluency reporting system, reports are being signed by the in house radiologists without review as a courtesy to insure prompt reporting. The interpreting radiologist is fully responsible for the content of the report.
== END 2022-02-10 03:28 | disposition home or self-care (01) ==
LOC: ER 22:35 → SUPCPDRO 22:35 → ER 02-10 03:28
DX: R10.13 Epigastric pain (principal); I10 Essential (primary) hypertension; I45.5 Other specified heart block; K21.9 Gastro-esophageal reflux disease without esophagitis; Z88.0 Allergy status to penicillin
CPT/HCPCS: 93005 ×2; 85025; 80048; 36415; 83735; 85610; 80076; 84484; 83690; 83880; 71045; 76705; 96375; 96374; 99284; J0360; J3475

== ENCOUNTER 2022-02-13 21:14 | Inpatient (IN) | payer MEDICARE ==
--- OUTSIDE RECORDS SUMMARY | 2022-02-13 21:17 | XMS REPORT | Continuity of Care Document ---
:1935 Author Organization [facility] t Address [address] [place] [address] Care Team Providers Name Role Phone Gurvinder_Patricia Attending Clinician Unavailable Love-Mbayo_A_AH Attending Clinician Unavailable Mary Hollins Attending Clinician [phone] Prudence Gaston Admitting Clinician Unavailable Gurvinder_Patricia Admitting Clinician Unavailable Love-Mbayo_A_AH Admitting Clinician Unavailable Payers Payer Name Policy Type Policy Number Effective Date Expiration Date S [facility] [id number] 2021 (MEDICARE 00:00:00 REPLACEMENT HMO) [facility] [id number] 2019 [employer] (MEDICARE 00:00:00 REPLACEMENT/ADVANTA GE - HMO) Problems Condition Condition Condition Status Onset Resolution Last Treating Co mments Source Name Details Category Date Date Treatment Clinician Date Primary Primary Problem Active [facility] 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 Clinician (SIG) Name Name Tramadol Tramadol Yes Jose Alberto [address] [facility] HCl HCl 6-30 [facility] 00 [facility] anastrozole anastrozole No 1 Q1D anastrozol [place] [...] route. omeprazole omeprazole No 1 Q1D omeprazole [facility] 20 mg 20 mg 20 mg [...] thiazide Ring defined [facility] Anastrozole Anastrozole Yes Jose Alberto not [facility] Ring defined [facility] ent [facility] Omeprazole Omeprazole Yes Jose Alberto not [facility] Ring [facility] Losartan Losartan Yes Jose Alberto not [facility] Potassium Potassium Ring defined [facility] Procedures This patient has no known procedures. Encounters Start End Encounter Admission Attending Care Care Encounter Source Date/Time Date/Time Type Type Clinicians Facility Department ID 2022-02-08 Outpatient [facility] [id number] [facility] 16:02:01 [facility] 2021-12-15 Outpatient [facility] [id number] 12:01:20 [id number] kes - [facility] ent Clinics 2021-12-15 Outpatient [facility] [id number] [facility] [address] 11:54:02 [id number] [facility] 2021-11-11 2021-11-11 [place] [id number] [facility] 10:30:00 10:30:00 1223 [facility] 2021-05-17 2021-05-17 Outpatient Love[facility]onarennilda [facility] [address] [place] [address] 02:54:00 02:54:00 _A_AH [id number] Family Practic e 2021-02-22 2021-02-22 [place] [id number] [facility] 11:38:00 11:38:00 0405 Med[facility] l Group 2021-02-22 2021-02-22 Outpatient Hollins, DMG DMG [id number] 00:00:00 00:00:00 Iliana [id number] Mary [id number] 2021-02-19 2021-02-19 [place] [id number] [facility] 11:15:00 11:15:00 0402 Medica l Group 2020-10-06 2020-10-06 Outpatient [facility] [id number] [facility] 2020-09-29 2020-09-29 Outpatient [facility] [id number] [facility] 2020-09-22 2020-09-22 Outpatient [facility] [id number] [facility] 2020-09-10 2020-09-10 Outpatient [facility] [id number] [facility]00 [facility] 2020-05-19 2020-05-19 [facility] [id number] 08:30:00 08:30:00 [facility] Clin[facility] 2020-04-30 2020-04-30 Outpatient [facility]Crow [facility] [id number] 11:59:00 11:59:00 _A_AH [id number] Family Practic e 2020-04-20 2020-04-20 Outpatient [facility] [id number] 06:26:00 06:26:00 _A_AH [id number] Family Practic e 2020-03-30 2020-03-30 Outpatient Love-Concepcióno [facility]FP [facility] [address] [place] [address] 02:45:00 02:45:00 _A_AH 13515 Family Practic e 2020-02-24 2020-02-24 [facility] [id number] [address] 14:30:00 14:30:00 [facility] 2020-02-18 2020-02-18 Rachel P [place] - [id number] V illage 00:00:00 00:00:00 LoveJessie [facility] Fam ryan munguia DAMAGE PREVENTION COORDINATOR: Medical - Practi c [address] _HOU_V@_ e [facility], [address] [address], [place] [address] , Ph. 2020-01-29 2020-01-29 [facility] [id number] 14:19:00 14:19:00 [facility] 2020-01-28 2020-01-28 [facility] [id number] 10:45:00 10:45:00 [facility] Clin[facility] 2020-01-08 2020-01-08 Outpatient Love-Concepcióno VFP P [address] [place] [address] 07:20:00 07:20:00 _A_AH [id number] Family Practic e 2019-06-12 2019-06-12 [facility] [id number] 11:07:00 11:07:00 [facility] 2019-06-06 2019-06-06 Outpatient Lynne Bhatt [id number] 10:00:00 10:00:00 [facility] 2019-05-20 2019-05-20 Outpatient Lynne Bhatt [id number] 09:30:00 09:30:00 [facility] Results This patient has no known results.
[2022-02-13] MEDS ORDERED: HYDRALAZINE HCL 20 MG/ML VIAL ONE (21:50)
[2022-02-13 22:04] LABS: Absolute Lymphocytes (CBC) 1.4 K/uL (0.7-4.9); Hematocrit 36.1 % (36.0-45.0); Lymphocytes % 25.8 % (15.3-44.8); MPV 7.7 fL (7.6-11.3); RBC Red Blood Cell Count 4.41 M/uL (3.86-4.86)
[2022-02-13 22:22] LABS: Protime INR 1.04
[2022-02-13 22:26] LABS: Albumin 3.8 g/dL (3.4-5.0); Bilirubin Direct 0.2 mg/dL (0-0.2); Bilirubin Total 0.6 mg/dL (0.2-1.0); Magnesium 1.8 mg/dL (1.8-2.4); Protein, Total 7.2 g/dL (6.4-8.2); Troponin High Sensitivity 22.4 pg/mL (<58.9)
[2022-02-13 22:44] LABS: Urine Blood Trace-intact (Negative); Urine Glucose Negative (Negative); Urine Protein 1+ (Negative); Urine pH 6.5 (5.0-7.0)
[2022-02-13] MEDS ORDERED: MORPHINE 2 MG/ML SYR ONE (22:45)
[2022-02-13] MEDS ORDERED: ONDANSETRON 4 MG/2 ML VIAL ONE (22:45)
[2022-02-13] MEDS ORDERED: FUROSEMIDE 20 MG/ 2ML VIAL ONE (22:45)
[2022-02-13 23:32] LABS: SARS-COV-2 RT PCR NEGATIVE (NEGATIVE)
--- NOTE | 2022-02-14 01:00 | ER ---
Nurse's Notes [facility] Name: Kelly Phillips Age: 86 yrs Sex: Female : 1935 Arrival Date: 02/13/2022 Time: 21:24 Bed 14 Private MD: Diagnosis: Chest pain, unspecified;Pneumonia, unspecified organism;UTI/ Urinary tract infection, site not specified Presentation: 02/13 21:24 Chief complaint: Spouse and/or significant other states: "She started having chest pain ab2 and difficulty breathing again out of no where. We were here last week for the same thing.". Coronavirus screen: Vaccine status: Patient reports receiving the 2nd dose of the covid vaccine. Client denies travel out of the [place] in the last 14 days. At this time, the client does not indicate any symptoms associated with coronavirus-19. Ebola Screen: Patient negative for fever greater than or equal to 101.5 degrees Fahrenheit, and additional compatible Ebola Virus Disease symptoms Patient denies exposure to infectious person. Patient denies travel to an Ebola-affected area in the 21 days before illness onset. No symptoms or risks identified at this time. Initial Sepsis Screen: Does the patient meet any 2 criteria? No. Patient's initial sepsis screen is negative. Does the patient have a suspected source of infection? No. Patient's initial sepsis screen is negative. Risk Assessment: Do you want to hurt yourself or someone else? Patient reports no desire to harm self or others. Onset of symptoms is unknown. 21:24 Method Of Arrival: Ambulatory ab2 21:24 Acuity: JASMINA 3 ab2 Triage Assessment: 21:29 General: Appears in no apparent distress. uncomfortable, Behavior is calm, cooperative, ab2 appropriate for age. Pain: Complains of pain in chest. Cardiovascular: Reports chest pain, shortness of breath, Heart tones S1 S2 present. Respiratory: Reports shortness of breath Airway is patent Respiratory effort is labored, Respiratory pattern is symmetrical, Breath sounds with wheezes bilaterally. Historical: - Allergies: 21:28 PENICILLINS; ab2 - Home Meds: 22:01 amlodipine 5 mg tab 1 tab once daily [Active]; anastrozole 1 mg Oral tab 1 tab once feliberto daily [Active]; carvedilol 12.5 mg Oral tab 1 tab 2 times per day [Active]; hydrochlorothiazide 12.5 mg Oral cap 1 cap once daily [Active]; losartan 100 mg Oral tab 1 tab nightly [Active]; omeprazole 20 mg Oral cpDR 1 cap once daily [Active]; - PMHx: 21:28 GERD; Hypertensive disorder; ab2 - PSHx: 21:28 Appendectomy; tumor removal RT breast; ab2 - Immunization history:: Adult Immunizations up to date. - Social history:: Smoking status: Patient denies any tobacco usage or history of. Screenin:00 Abuse screen: Denies threats or abuse. Denies injuries from another. Nutritional feliberto screening: No deficits noted. Tuberculosis screening: No symptoms or risk factors identified. Fall Risk None identified. Assessment: 21:58 Reassessment: I agree with previous assessment. The pt and her were anxious, feliberto but were easily reassured by the MD and myself, among other staff members. She was placed on 0.5L per NC for comfort, due to the anxiousness. It was very effective. 22:01 Pain: Pain began suddenly, hx of same. feliberto 22:02 Pain: Pain does not radiate. feliberto 22:11 Reassessment: The pt's CXR was just completed. She is much more comfortable. Her feliberto remains at bedside. 22:32 Reassessment: The pt ambulated to the bathroom with minimal assist. The pt's son called feliberto and spoke to his father. 02/14 01:11 Reassessment: It should be noted that the doctor confirmed with the pt and her feliberto that she is not allergic to PCN. 01:29 Reassessment: Registration called to "flip" the pt. feliberto 01:32 Reassessment: 2nd floor called in order to give report. feliberto 01:37 Reassessment: They answered the phone, but never came back on. I waited 5 minutes and feliberto I'll call again, when I am able. 01:46 General: I called [phone] and they answered and asked if they could call back, as they feliberto wanted to "look up the pt". . 01:47 General: The pt's son, Chapin's number is [phone], and he lives in [place].. feliberto 01:52 Reassessment: The nurse called me back and I gave her report. The pt will be taken up feliberto via w/c. Vital Signs: 02/13 21:24 BP 207 / 82; Pulse 61; Resp 24; Temp 97.7; Pulse Ox 100% on R/A; Weight 72.57 kg; ab2 Height 5 ft. 5 in. (165.10 cm); Pain 10/10; 21:57 BP 194 / 88; Pulse 78; Resp 18; Temp 98.5; Pulse Ox 100% on R/A; Pain 0/10; felib[place] 22:13 BP 171 / 61; Pulse 88; Resp 19; Pulse Ox 100% on R/A; Pain 0/10; [place] 23:03 BP 142 / 71; Pulse 88; Resp 18; Pulse Ox 100% on R/A; Pain 0/10; [place] 02/14 01:18 BP 163 / 74; Pulse 94; Resp 18; Pulse Ox 100% on R/A; fel[place] 01:33 BP 168 / 76; Pulse 93; Resp 16; Temp 98.5; Pulse Ox 97% on R/A; Pain 0/10; felib[place] 02/13 21:24 Body Mass Index 26.63 (72.57 kg, 165.10 cm) ab2 ED Course: 02/13 21:24 Patient arrived in ED. jj6 21:28 Triage completed. ab2 21:29 Michael Harris MD is Attending Physician. mh7 21:29 Arm band placed on right wrist. ab2 21:43 Mari Carrera, RN is Primary Nurse. feliberto 22:00 No provider procedures requiring assistance completed. Inserted saline lock: 20 gauge feliberto in right antecubital area, using aseptic technique. Blood collected. 22:01 Patient has correct armband on for positive identification. Bed in low position. Call feliberto light in reach. Adult w/ patient. professor of legal studies on. Pulse ox on. NIBP on. 22:02 Patient maintains SpO2 saturation greater than 95% on room air. Oxygen administration feliberto via nasal cannula 0.5 L for comfort, given her anxiety. 22:03 Basic Metabolic Panel Sent. feliberto 22:03 CBC with Diff Sent. feliberto 22:03 LFT's Sent. feliberto 22:03 Magnesium Sent. fel[place] 22:03 NT PRO-BNP Sent. fel[place] 22:03 PT-INR Sent. fel[place] 22:03 Troponin HS Sent. felib[place] 22:12 COVID-19/FLU A+B (Document "Date of Onset" if Symptomatic) Sent. feliberto 22:12 Basic Metabolic Panel Sent. feliberto 22:12 CBC with Diff Sent. feliberto 22:12 LFT's Sent. fel[place] 22:13 Magnesium Sent. feliberto 22:13 NT PRO-BNP Sent. fel[place] 22:13 PT-INR Sent. fel[place] 22:13 Troponin HS Sent. feliberto 22:22 XRAY Chest (1 view) In Process Unspecified. EDNV 02/14 00:59 Shiva Lantigua MD is Hospitalizing Provider. 7 01:07 Blood Culture Adult (2) Sent. feliberto 01:07 Urine Culture Sent. feliberto 01:08 Urine Microscopic Only Sent. feliberto 01:17 Blood Culture Adult (2) Sent. feliberto Administered Medications: 02/13 21:57 Drug: hydrALAZINE 10 mg Route: IVP; Site: right antecubital; feliberto 21:57 Follow up: Response: Blood pressure is lowered feliberto 22:50 Drug: Lasix (furosemide) 20 mg Route: IVP; Site: right antecubital; feliberto 22:52 Follow up: Response: No adverse reaction fel[place] 22:51 Drug: morphine 2 mg Route: IVP; Site: right antecubital; feliberto 22:51 Follow up: Response: No adverse reaction; Pain is decreased felib[place] 22:51 Drug: Zofran (Ondansetron) 4 mg Route: IVP; Site: right antecubital; feliberto 22:51 Follow up: Response: Nausea is decreased fel[place]erto 02/14 01:17 Drug: Rocephin (cefTRIAXone) 1 grams Route: IV; Rate: per protocol; Site: right feliberto antecubital; 01:38 Follow up: IV Status: Completed infusion; IV Intake: 50ml feliberto 01:43 Drug: AZITHromycin 500 mg Route: IVPB; Infused Over: 1 hrs; Site: right antecubital; feliberto Intake: 01:38 IV: 50ml; Total: 50ml. feliberto Outcome: 02/13 22:01 Condition: stable fel[place] 02/14 01:00 Decision to Hospitalize by Provider. 7 01:54 Admitted to feliberto 02:17 Patient left the ED. feliberto Signatures: Dispatcher [employer] EDNV Michael Harris MD MD 7 Ava Macias6 Mari Carrera RN RN feliberto Bleininger, Sukh ab2
--- NOTE | 2022-02-14 01:01 | EDPHYS ---
Physician Documentation [facility] Name: Kelly Phillips Age: 86 yrs Sex: Female : 1935 Arrival Date: 02/13/2022 Time: 21:24 Bed 14 Private MD: ED Physician Michael Harris HPI: 02/13 22:15 This 86 yrs old Female presents to ER via Ambulatory with complaints of Chest mh7 Pain. 22:15 The patient or guardian reports chest pain that is located primarily in the anterior mh7 chest wall, left. Onset: today, 3 hour(s) ago. The pain does not radiate. Associated signs and symptoms: Pertinent positives: shortness of breath, Pertinent negatives: abdominal pain, cough, diaphoresis, dizziness, headache, lower extremity pain, lower extremity swelling, lightheadedness, nausea, near syncope, palpitations, recent travel, syncope, vomiting. The chest pain is described as a heaviness. Duration: The patient or guardian reports multiple episodes, that are intermittent, that wax and wane, with no pattern. Modifying factors: The symptoms are alleviated by nothing. the symptoms are aggravated by nothing. Severity of pain: At its worst the pain was moderate today, in the emergency department the pain has improved moderately. Historical: - Allergies: 21:28 PENICILLINS; ab2 - Home Meds: 22:01 amlodipine 5 mg tab 1 tab once daily [Active]; anastrozole 1 mg Oral tab 1 tab once feliberto daily [Active]; carvedilol 12.5 mg Oral tab 1 tab 2 times per day [Active]; hydrochlorothiazide 12.5 mg Oral cap 1 cap once daily [Active]; losartan 100 mg Oral tab 1 tab nightly [Active]; omeprazole 20 mg Oral cpDR 1 cap once daily [Active]; - PMHx: 21:28 GERD; Hypertensive disorder; ab2 - PSHx: 21:28 Appendectomy; tumor removal RT breast; ab2 - Immunization history:: Adult Immunizations up to date. - Social history:: Smoking status: Patient denies any tobacco usage or history of. ROS: 22:15 Constitutional: Negative for fever, chills, and weight loss, Eyes: Negative for injury, mh7 pain, redness, and discharge, ENT: Negative for injury, pain, and discharge, Neck: Negative for injury, pain, and swelling, Abdomen/GI: Negative for abdominal pain, nausea, vomiting, diarrhea, and constipation, Back: Negative for injury and pain, : Negative for injury, bleeding, discharge, and swelling, MS/Extremity: Negative for injury and deformity, Skin: Negative for injury, rash, and discoloration, Neuro: Negative for headache, weakness, numbness, tingling, and seizure, Psych: Negative for depression, anxiety, suicide ideation, homicidal ideation, and hallucinations, Allergy/Immunology: Negative for hives, rash, and allergies, Endocrine: Negative for neck swelling, polydipsia, polyuria, polyphagia, and marked weight changes, Hematologic/Lymphatic: Negative for swollen nodes, abnormal bleeding, and unusual bruising. Exam: 22:15 Head/Face: Normocephalic, atraumatic. Eyes: Pupils equal round and reactive to light, mh7 extra-ocular motions intact. Lids and lashes normal. Conjunctiva and sclera are non-icteric and not injected. Cornea within normal limits. Periorbital areas with no swelling, redness, or edema. Neck: Trachea midline, no thyromegaly or masses palpated, and no cervical lymphadenopathy. Supple, full range of motion without nuchal rigidity, or vertebral point tenderness. No Meningismus. Chest/axilla: Normal chest wall appearance and motion. Nontender with no deformity. No lesions are appreciated. 22:15 Abdomen/GI: Soft, non-tender, with normal bowel sounds. No distension or tympany. No guarding or rebound. No evidence of tenderness throughout. Back: No spinal tenderness. No costovertebral tenderness. Full range of motion. Skin: Warm, dry with normal turgor. Normal color with no rashes, no lesions, and no evidence of cellulitis. MS/ Extremity: Pulses equal, no cyanosis. Neurovascular intact. Full, normal range of motion. Neuro: Awake and alert, GCS 15, oriented to person, place, time, and situation. Cranial nerves II-XII grossly intact. Motor strength 5/5 in all extremities. Sensory grossly intact. Cerebellar exam normal. Normal gait. Psych: Awake, alert, with orientation to person, place and time. Behavior, mood, and affect are within normal limits. 22:15 Constitutional: The patient appears in no acute distress, alert, awake, uncomfortable. 22:15 Cardiovascular: Rate: bradycardic, Rhythm: regular, Pulses: no pulse deficits are appreciated, Heart sounds: normal, normal S1and S2, Edema: is not appreciated, JVD: is not appreciated. 22:15 Respiratory: the patient does not display signs of respiratory distress, Respirations: prolonged exhalation, that is mild, Breath sounds: rhonchi, that are mild, are scattered, Respiratory rate: 18 22:15 ECG was reviewed by the Attending Physician. [facility] Vital Signs: 21:24 BP 207 / 82; Pulse 61; Resp 24; Temp 97.7; Pulse Ox 100% on R/A; Weight 72.57 kg; ab2 Height 5 ft. 5 in. (165.10 cm); Pain 10/10; 21:57 BP 194 / 88; Pulse 78; Resp 18; Temp 98.5; Pulse Ox 100% on R/A; Pain 0/10; feliberto 22:13 BP 171 / 61; Pulse 88; Resp 19; Pulse Ox 100% on R/A; Pain 0/10; felib[place] 23:03 BP 142 / 71; Pulse 88; Resp 18; Pulse Ox 100% on R/A; Pain 0/10; fel[place] 02/14 01:18 BP 163 / 74; Pulse 94; Resp 18; Pulse Ox 100% on R/A; felib[place] 01:33 BP 168 / 76; Pulse 93; Resp 16; Temp 98.5; Pulse Ox 97% on R/A; Pain 0/10; feliberto 02/13 21:24 Body Mass Index 26.63 (72.57 kg, 165.10 cm) ab2 MDM: 00:57 Differential diagnosis: acute myocardial infarction, acute pericarditis, anxiety, 7 coronary artery disease chest wall pain, congestive heart failure costochondritis, gastroesophageal reflux disease (GERD), pleurisy, pneumonia, pneumothorax. HEART Score: History: Slightly Suspicious (0), ECG: Non specific repolarization disturbance / LBTB / PM (1), Age: > or = 65 years (2), Risk Factors: 1 or 2 risk factors (1), [Hypertension] Troponin: < or = 1 x Normal Limit (0), Total Score = 4. Data reviewed: vital signs, nurses notes, lab test result(s), cardiac enzymes, CBC, electrolytes, urinalysis, EKG, radiologic studies, plain films. Data interpreted: Pulse oximetry: on room air is 100 %. Interpretation: normal. Counseling: I had a detailed discussion with the patient and/or guardian regarding: the historical points, exam findings, and any diagnostic results supporting the discharge/admit diagnosis, the presence of at least one elevated blood pressure reading (>120/80) during this emergency department visit, lab results, radiology results, the need for further work-up and treatment in the hospital. Response to treatment: the patient's symptoms have markedly improved after treatment. 01:00 Patient medically screened. [facility] 02/13 21:38 Order name: Basic Metabolic Panel; Complete Time: 22:30 [facility] 02/13 21:38 Order name: CBC with Diff; Complete Time: 22:30 [facility] 02/13 21:38 Order name: LFT's; Complete Time: 22:30 [facility] 02/13 21:38 Order name: Magnesium; Complete Time: 22:30 [facility] 02/13 21:38 Order name: NT PRO-BNP; Complete Time: 22:30 [facility] 02/13 21:38 Order name: PT-INR; Complete Time: 22:30 [facility] 02/13 21:38 Order name: Troponin HS; Complete Time: 22:30 [facility] 02/13 22:05 Order name: COVID-19/FLU A+B (Document "Date of Onset" if Symptomatic); Complete Time: mw2 23:44 02/13 22:45 Order name: Urine Dipstick-Ancillary; Complete Time: 23:10 [facility] 02/13 23:11 Order name: Urine Microscopic Only [facility] 02/13 23:11 Order name: Urine Culture [facility] 02/14 00:26 Order name: Blood Culture Adult (2) [facility] 02/14 01:09 Order name: Basic Metabolic Panel [facility] 02/14 01:09 Order name: Basic Metabolic Panel [facility] 02/13 21:38 Order name: XRAY Chest (1 view) [facility] 02/13 21:38 Order name: EKG; Complete Time: 21:39 [facility] 02/13 21:38 Order name: Cardiac monitoring; Complete Time: 22:03 [facility] 02/14 01:09 Order name: 60g Consistent Carbohydrate (ADA 1800/2000) [facility] 02/14 01:09 Order name: EKG Electrocardiogram [facility] 02/14 01:09 Order name: EKG Electrocardiogram [facility] 02/14 01:09 Order name: CBC with Automated Diff [facility] 02/14 01:09 Order name: CBC with Automated Diff [facility] 02/14 01:09 Order name: NT PRO-BNP [facility] 02/14 01:09 Order name: NT PRO-BNP [facility] 02/13 21:38 Order name: EKG - Nurse/Tech; Complete Time: 22:03 [facility] 02/13 21:38 Order name: IV Saline Lock; Complete Time: 22:03 [facility] 02/13 21:38 Order name: Labs collected and sent; Complete Time: 22:03 [facility] 02/13 21:38 Order name: O2 Per Protocol; Complete Time: 22:03 [facility] 02/13 21:38 Order name: O2 Sat Monitoring; Complete Time: 22:03 [facility] 02/13 21:38 Order name: Urine Dipstick-Ancillary (obtain specimen); Complete Time: 22:46 mh7 EC/27 22:15 Rate is 57 beats/min. Rhythm is regular, Sinus bradycardia with 2nd degree - Mobitz I mh7 heart block. QRS Arion is Normal. UT interval is normal. QRS interval is normal. QT interval is normal. No Q waves. T waves are Peaked in leads V3, V4. No ST changes noted. Clinical impression: Abnormal EKG without significant change. Administered Medications: 21:57 Drug: hydrALAZINE 10 mg Route: IVP; Site: right antecubital; [place] 21:57 Follow up: Response: Blood pressure is lowered [place] 22:50 Drug: Lasix (furosemide) 20 mg Route: IVP; Site: right antecubital; [place] 22:52 Follow up: Response: No adverse reaction [place] 22:51 Drug: morphine 2 mg Route: IVP; Site: right antecubital; [place] 22:51 Follow up: Response: No adverse reaction; Pain is decreased [place] 22:51 Drug: Zofran (Ondansetron) 4 mg Route: IVP; Site: right antecubital; [place] 22:51 Follow up: Response: Nausea is decreased [place] 02/14 01:17 Drug: Rocephin (cefTRIAXone) 1 grams Route: IV; Rate: per protocol; Site: right fel[place]erto antecubital; 01:38 Follow up: IV Status: Completed infusion; IV Intake: 50ml [place] 01:43 Drug: AZITHromycin 500 mg Route: IVPB; Infused Over: 1 hrs; Site: right antecubital; feliberto Disposition Summary: 02/14/22 01:00 Hospitalization Ordered Hospitalization Status: Inpatient Admission [facility] Provider: Shiva Lantigua Location: Telemetry/MedSur (Inpatient) [facility] Condition: Stable [facility] Problem: new [facility] Symptoms: have improved [facility] Bed/Room Type: Standard [facility] Room Assignment: 211(02/14/22 01:11) mw Diagnosis - Chest pain, unspecified [facility] - Pneumonia, unspecified organism [facility] - UTI/ Urinary tract infection, site not specified [facility] Forms: - Medication Reconciliation Form [facility] - SBAR form [facility] Signatures: Dispatcher [employer] Promise Chahal RN RN mw Holmes, Maurice, MD MD [facility] Mari Carrera RN RN Sukh Mills Sophia, PA PA sb3 Corrections: (The following items were deleted from the chart) 01:11 01:00 formerly [facility]
[2022-02-14] MEDS ORDERED: ACETAMINOPHEN 500 MG TAB PO PRN (01:03)
[2022-02-14] MEDS ORDERED: MORPHINE 4 MG/ML SYR IV PRN (01:03)
[2022-02-14] MEDS ORDERED: IPRATROPIUM BROM 0.5MG/2.5ML NEB PRN ×2 (01:03→12:00)
[2022-02-14] MEDS ORDERED: ALBUTEROL 2.5 MG/3 ML NEB SOL NEB PRN ×2 (01:03→12:00)
[2022-02-14] MEDS ORDERED: ONDANSETRON 4 MG/2 ML VIAL IV PRN (01:03)
[2022-02-14] MEDS ORDERED: CEFTRIAXONE 1000 MG/VIAL ONE (01:06)
[2022-02-14] MEDS ORDERED: NA CHLORIDE 0.9% 50 ML ONE (01:07)
[2022-02-14] MEDS ORDERED: NA CHLORIDE 0.9% 250 ML ONE (01:07)
[2022-02-14] MEDS ORDERED: AZITHROMYCIN 500 MG INJ IVPB ONE (01:07)
[2022-02-14 01:36] LABS: Urine Bacteria <20 /HPF (<20); Urine RBC NONE SEEN /HPF (NONE SEEN)
[2022-02-14] MEDS ORDERED: MORPHINE 2 MG/ML SYR IV PRN (01:40)
[2022-02-14 02:53] VITALS: BMI 31.1
--- NOTE | 2022-02-14 08:01 | P.HP ---
Certification for Inpatient Patient admitted to: Inpatient With expected LOS: >2 Midnights Patient will require the following post-hospital care: None Practitioner: I am a practitioner with admitting privileges, knowledge of patient current condition, hospital course, and medical plan of care. Services: Services provided to patient in accordance with Admission requirements found in Title 42 Section 412.3 of the Code of Federal Regulations Patient History Date of Service: 02/14/22 Primary Care Provider: Grzegorz Reason for admission: pneumonia History of Present Illness: Patient is establishing care with us. She has a history of htn and breast cancer. She has been having some cough this week. Came to the ER. Was found to have a rt side pneumonia and uti. Considering her Pneumonia risk score is 1(3.2% mortality). She also does not have very good social support. Will admit her to the hospital. Allergies Penicillins Allergy (Verified 09/16/16 10:49) Rash Home Medications: Losartan Potassium [Cozaar] 100 mg PO DAILY WITH BREAKFAST 09/16/16 Omeprazole 20 mg PO DAILY 09/16/16 hydroCHLOROthiazide [Hydrodiuril] 25 mg PO DAILY 09/16/16 Codeine/APAP [Tylenol W/Codeine #3 tab] 1 tab PO Q4HP PRN #30 tab 09/19/16 Sulfamethoxazole/Trimethoprim [Bactrim Ds Tablet] 1 each PO BID #10 tablet 09/19/16 ondansetron HCL [Zofran] 4 mg PO Q6H PRN #10 tablet 09/19/16 - Past Medical/Surgical History -: right breast biopsy 50 years ago - Social History Smoking Status: Never smoker Alcohol use: Yes CD- Drugs: No Caffeine use: Yes Place of Residence: Home Review of Systems 10-point ROS is otherwise unremarkable Respiratory: Cough, SOB with Excertion Physical Examination - Vital Signs Temperature: 97.6 F Blood Pressure: 141/61 Pulse: 92 Respirations: 18 Pulse Ox (%): 97 - Physical Exam General: Alert, In no apparent distress HEENT: Atraumatic, PERRLA, Mucous membr. moist/pink, EOMI, Sclerae nonicteric Neck: Supple, 2+ carotid pulse no bruit, No LAD, Without JVD or thyroid abn ormality Respiratory: Clear to auscultation bilaterally, Normal air movement Cardiovascular: Regular rate/rhythm, Normal S1 S2 Gastrointestinal: Normal bowel sounds, No tenderness Musculoskeletal: No tenderness Integumentary: No rashes Neurological: Normal gait, Normal speech, Normal strength at 5/5 x4 extr, Normal tone, Normal affect Lymphatics: No axilla or inguinal lymphadenopathy - Studies Laboratory Data (last 24 hrs) 02/13/22 21:45: PT 11.4, INR 1.04 02/13/22 21:45: WBC 5.4 D, Hgb 12.2, Hct 36.1, Plt Count 301 02/13/22 21:45: Sodium 128 L, Potassium 4.0, BUN 11, Creatinine 1.04, Glucose 128 H, Magnesium 1.8, Total Bilirubin 0.6, AST 25, ALT 26, Alkaline Phosphatase 62 Assessment and Plan - Problems (Diagnosis) (1) Pneumonia Current Visit: Yes Status: Acute Plan: will continue antibiotics. Gentle fluids. Follow up on blood cultures. Qualifiers: Pneumonia type: due to Pneumococcus Laterality: right Lung location: unspecified part of lung Qualified Code(s): J13 - Pneumonia due to Streptococcus pneumoniae (2) UTI (urinary tract infection) Current Visit: Yes Status: Acute Plan: ceftriaxone will cover. Will follow up in a month Qualifiers: Urinary tract infection type: acute cystitis (3) HTN (hypertension) Current Visit: Yes Status: Acute Plan: will check her home meds. Adjust as necessary Qualifiers: Hypertension type: primary hypertension Qualified Code(s): I10 - Essential (primary) hypertension Discharge Plan: Home - Advance Directives Does patient have a Living Will: Yes Does patient have a Durable POA for Healthcare: Yes - Code Status/Comfort Care Code Status Assessed: No Code Status: Full Code Physician Review: Patient Assessed, Agree with Above Assessment and Plan Critical Care: No Time Spent Managing Pts Care (In Minutes): 45
[2022-02-14] MEDS ORDERED: HOME MED 1 EA UNK (Omeprazole [Omeprazole] 20 MG Tablet.Dr) PO SCH (09:00)
[2022-02-14] MEDS: CEFTRIAXONE 1,000 MG in NA CHLORIDE 0.9% 50 ML IVPB SCH ×2 (11:12→20:57)
[2022-02-14] MEDS: PANTOPRAZOLE 40MG TABLET PO SCH (11:14)
[2022-02-14] MEDS: AZITHROMYCIN IV 250 MG in NA CHLORIDE 0.9% 250 ML IVPB SCH (11:59)
[2022-02-14] MEDS: hydroCHLOROthiazide 12.5 MG CAP PO SCH (12:51)
[2022-02-14] MEDS: LOSARTAN POTASSIUM 50 MG TABLET PO SCH (12:52)
--- NOTE | 2022-02-14 13:21 | RAD REPORT ---
EXAM DESCRIPTION: RAD - Chest Single View - 02/13/2022 10:20 pm CLINICAL HISTORY: CHEST PAIN. COMPARISON: Chest radiograph from February 10, 2022. TECHNIQUE: Single view AP chest radiograph(s). FINDINGS: Mild diffuse pulmonary interstitial thickening. Small streaky opacity in the medial right lower lung. No pleural effusion. No pneumothorax. Nonenlarged cardiomediastinal silhouette. No signif icant osseous abnormality. IMPRESSION: Mild diffuse pulmonary interstitial thickening. Small streaky opacity in the medial righ t lower lung, possibly an infiltrate in the appropriate clinical setting. Electronically signed by: Shamraine Murray MD 02/13/2022 10:32 PM CDT Due to temporary technical issues with the PACS/Fluency reporting system, reports are being signed by the in house radiologist without review as a courtesy to ensure prompt reporting. The interpreting r adiologist is fully responsible for the content of the report.
[2022-02-14] MEDS ORDERED: LORATADINE 10 MG TAB PO PRN (14:54)
[2022-02-14] MEDS ORDERED: ENOXAPARIN 30 MG/0.3 ML SQ SCH (17:00)
[2022-02-14] MEDS ORDERED: HYDRALAZINE HCL 20 MG/ML VIAL IV PRN (20:08)
[2022-02-15 04:11] LABS: Absolute Lymphocytes (CBC) 1.5 K/uL (0.7-4.9); Hematocrit 28.9 % (36.0-45.0); MPV 7.4 fL (7.6-11.3); RBC Red Blood Cell Count 3.57 M/uL (3.86-4.86)
[2022-02-15 04:25] LABS: Potassium 3.6 mmol/L (3.5-5.1)
[2022-02-15] MEDS ORDERED: LOSARTAN POTASSIUM 50 MG TABLET PO SCH (08:00)
--- NOTE | 2022-02-15 09:01 | P.PN ---
Subjective Date of Service: 02/15/22 Primary Care Provider: Grzegorz Chief Complaint: pneumonia Subjective: No new changes Review of Systems 10-point ROS is otherwise unremarkable General: Weakness Physical Examination - Vital Signs Temperature: 97.2 F Blood Pressure: 177/76 Pulse: 88 Respirations: 14 Pulse Ox (%): 92 - Physical Exam General: Alert, In no apparent distress HEENT: Atraumatic, PERRLA, EOMI Neck: Supple, JVD not distended Respiratory: Clear to auscultation bilaterally, Normal air movement Cardiovascular: Regular rate/rhythm, Normal S1 S2 Gastrointestinal: Normal bowel sounds, No tenderness Musculoskeletal: No tenderness Integumentary: No rashes Neurological: Normal speech, Normal tone, Normal affect Lymphatics: No axilla or inguinal lymphadenopathy Assessment And Plan - Current Problems (Diagnosis) (1) Pneumonia Current Visit: Yes Status: Acute Plan: will continue antibiotics. Gentle fluids. Follow up on blood cultures. 02/15 1/2 blood cultures positive Can treat as a contaminant. The rest of her labs are improving. Will follow up with the patient. Qualifiers: Pneumonia type: due to Pneumococcus Laterality: right Lung location: unspecified part of lung Qualified Code(s): J13 - Pneumonia due to Streptococcus pneumoniae (2) UTI (urinary tract infection) Current Visit: Yes Status: Acute Plan: ceftriaxone will cover. Will follow up in a month Qualifiers: Urinary tract infection type: acute cystitis (3) HTN (hypertension) Current Visit: Yes Status: Acute Plan: will check her home meds. Adjust as necessary Qualifiers: Hypertension type: primary hypertension Qualified Code(s): I10 - Essential (primary) hypertension (4) Protein-energy malnutrition Current Visit: Yes Status: Acute Plan: Most likely from her infection. Will have PT evaluate the patient Qualifiers: Protein-calorie malnutrition severity: moderate Qualified Code(s): E44.0 - Moderate protein-calorie malnutrition Discharge Plan: Home Plan to discharge in: 24 Hours - Code Status/Comfort Care Code Status Assessed: No Physician Review: Patient Assessed, Agree with Above Assessment and Plan Critical Care: No Time Spent Managing PTS Care (In Minutes): 25
[2022-02-15] MEDS: PANTOPRAZOLE 40MG TABLET PO SCH (09:25)
[2022-02-15] MEDS: LOSARTAN POTASSIUM 50 MG TABLET PO SCH (09:25)
[2022-02-15] MEDS: hydroCHLOROthiazide 12.5 MG CAP PO SCH (09:25)
[2022-02-15] MEDS: FLUTICASONE 50MCG NASAL SPRAY NAS SCH (09:28)
[2022-02-15] MEDS: AZITHROMYCIN IV 250 MG in NA CHLORIDE 0.9% 250 ML IVPB SCH (09:29)
[2022-02-15] MEDS: CEFTRIAXONE 1,000 MG in NA CHLORIDE 0.9% 50 ML IVPB SCH ×2 (09:30→20:18)
--- NOTE | 2022-02-15 12:37 | EKG ---
Test Date: 2022-02-13 Test Time: 21:30:37 Production Quality Analyst: AB MEASUREMENT RESULTS: Intervals: Rate: 57 MA: 182 QRSD: 136 QT: 490 QTc: 476 [place]: P: 80 MA: 182 QRS: 37 T: 90 INTERPRETIVE STATEMENTS: Sinus bradycardia Nonspecific intraventricular block Cannot rule out Anteroseptal infarct, age undetermined Abnormal ECG Compared to ECG 02/13/2022 21:29:51 No significant changes Electronically Signed On 02-15-22 12:33:32 CDT by Carrillo Coley
--- NOTE | 2022-02-15 12:37 | EKG ---
Test Date: 2022-02-13 Test Time: 21:29:51 Bag Sealer: AB MEASUREMENT RESULTS: Intervals: Rate: 57 MN: 184 QRSD: 136 QT: 498 QTc: 484 [place]: P: 77 MN: 184 QRS: 32 T: 90 INTERPRETIVE STATEMENTS: Sinus bradycardia Nonspecific intraventricular block Cannot rule out Anteroseptal infarct, age undetermined Abnormal ECG Compared to ECG 02/10/2022 02:17:23 Myocardial infarct finding now present Left bundle-branch block no longer present Electronically Signed On 02-15-22 12:33:33 CDT by Carrillo Coley
[2022-02-15] MEDS ORDERED: ENOXAPARIN 40 MG/0.4 ML SQ SCH (17:00)
[2022-02-15 17:29] VITALS: O2SAT 98
[2022-02-15] MEDS ORDERED: ACETAMINOPHEN 325 MG TABLET PO PRN (23:32)
[2022-02-16 05:57] LABS: Absolute Lymphocytes (CBC) 1.7 K/uL (0.7-4.9); Hematocrit 31.7 % (36.0-45.0); Lymphocytes % 31.7 % (15.3-44.8); MPV 7.6 fL (7.6-11.3); RBC Red Blood Cell Count 3.82 M/uL (3.86-4.86)
[2022-02-16 06:05] LABS: Albumin 3.2 g/dL (3.4-5.0); Bilirubin Total 0.6 mg/dL (0.2-1.0); Potassium 3.6 mmol/L (3.5-5.1); Protein, Total 6.3 g/dL (6.4-8.2)
[2022-02-16 08:58] VITALS: BP 162/74; TEMP 96.5
[2022-02-16] MEDS: CEFTRIAXONE 1,000 MG in NA CHLORIDE 0.9% 50 ML IVPB SCH (09:00)
[2022-02-16] MEDS: AZITHROMYCIN IV 250 MG in NA CHLORIDE 0.9% 250 ML IVPB SCH (09:00)
--- NOTE | 2022-02-16 09:30 | P.DS ---
Admission Date: 02/14/22 Discharge Date: 02/16/22 Primary Care Provider: Grzegorz Disposition: ROUTINE DISCHARGE Discharge Condition: GOOD Reason for Admission: pneumonia - Problems (1) Pneumonia Current Visit: Yes Status: Acute Qualifiers: Pneumonia type: due to Pneumococcus Laterality: right Lung location: unspecified part of lung Qualified Code(s): J13 - Pneumonia due to Streptococcus pneumoniae (2) UTI (urinary tract infection) Current Visit: Yes Status: Acute Qualifiers: Urinary tract infection type: acute cystitis (3) HTN (hypertension) Current Visit: Yes Status: Acute Qualifiers: Hypertension type: primary hypertension Qualified Code(s): I10 - Essential (primary) hypertension (4) Protein-energy malnutrition Current Visit: Yes Status: Acute Qualifiers: Protein-calorie malnutrition severity: moderate Qualified Code(s): E44.0 - Moderate protein-calorie malnutrition Brief History of Present Illness: Patient is establishing care with us. She has a history of htn and breast cancer. She has been having some cough this week. Came to the ER. Was found to have a rt side pneumonia and uti. Considering her Pneumonia risk score is 1(3.2% mortality). She also does not have very good social support. Will admit her to the hospital. Hospital Course: Patient admitted to the floors and started on zithromax and ceftiaxone. She had 1/2 blood cultures positive. GM +ve cocci. most likely strep pneumonia. Will discharge her home on Zithromax. She had some weakness with walking. Had her work with PT which was helpful. Will refer her to the outpatient PT center on [facility]. Thank you for allowing me to take part in the patients care. Vital Signs/Physical Exam: Temp Pulse Resp BP Pulse Ox 96.5 F L 45 L 18 162/74 H 98 02/16/22 08:00 02/16/22 08:00 02/16/22 08:00 02/16/22 08:00 02/16/22 08:00 General: Alert, In no apparent distress HEENT: Atraumatic, PERRLA, EOMI Neck: Supple, JVD not distended Respiratory: Clear to auscultation bilaterally, Normal air movement Cardiovascular: Regular rate/rhythm, Normal S1 S2 Gastrointestinal: Normal bowel sounds, No tenderness Musculoskeletal: No tenderness Integumentary: No rashes Neurological: Normal speech, Normal tone, Normal affect Lymphatics: No axilla or inguinal lymphadenopathy Laboratory Data at Discharge: WBC 5.4 K/uL (4.3-10.9) 02/16/22 05:30 Hgb 10.8 g/dL (12.0-15.0) L 02/16/22 05:30 Hct 31.7 % (36.0-45.0) L 02/16/22 05:30 Plt Count 278 K/uL (152-406) 02/16/22 05:30 PT 11.4 SECONDS (9.5-12.5) 02/13/22 21:45 INR 1.04 02/13/22 21:45 Sodium 129 mmol/L (136-145) L 02/16/22 05:30 Potassium 3.6 mmol/L (3.5-5.1) 02/16/22 05:30 BUN 20 mg/dL (7-18) H 02/16/22 05:30 Creatinine 0.91 mg/dL (0.55-1.3) 02/16/22 05:30 Glucose 116 mg/dL (74-106) H 02/16/22 05:30 Magnesium 1.8 mg/dL (1.8-2.4) 02/13/22 21:45 Total Bilirubin 0.6 mg/dL (0.2-1.0) 02/16/22 05:30 AST 17 U/L (15-37) 02/16/22 05:30 ALT 18 U/L (12-78) 02/16/22 05:30 Alkaline Phosphatase 49 U/L (45-117) 02/16/22 05:30 Triglycerides 63 mg/dL (<150) 02/15/22 03:29 Cholesterol 141 mg/dL (<200) 02/15/22 03:29 HDL Cholesterol 63 mg/dL (40-60) H 02/15/22 03:29 Cholesterol/HDL Ratio 2.24 02/15/22 03:29 Home Medications: Losartan Potassium [Cozaar] 100 mg PO DAILY WITH BREAKFAST 09/16/16 Omeprazole 20 mg PO DAILY 09/16/16 hydroCHLOROthiazide [Hydrodiuril] 12.5 mg PO DAILY 09/16/16 Carvedilol [Coreg] 12.5 mg PO BID 02/14/22 Anastrozole [Arimidex*] 1 mg PO BEDTIME 02/15/22 Albuterol Inhaler [Ventolin Inhaler*] 2 puff IH Q6H PRN 30 Days #30 hfa.aer.ad 02/16/22 Azithromycin [Zithromax] 500 mg PO DAILY 5 Days #5 tablet 02/16/22 New Medications: Albuterol Inhaler [Ventolin Inhaler*] 2 puff IH Q6H PRN 30 Days #30 hfa.aer.ad PRN Reason: Shortness Of Breath Azithromycin [Zithromax] 500 mg PO DAILY 5 Days #5 tablet Diet: Regular Activity: Ad tegan Followup: Unknown,U [Primary Care Provider] - Physician Review: Patient Assessed, Agree with Above Assessment and Plan Time spent managing pt's care (in minutes): 30
[2022-02-16] MEDS: hydroCHLOROthiazide 12.5 MG CAP PO SCH (09:44)
[2022-02-16] MEDS: FLUTICASONE 50MCG NASAL SPRAY NAS SCH (09:44)
[2022-02-16] MEDS: LOSARTAN POTASSIUM 50 MG TABLET PO SCH (09:44)
[2022-02-16] MEDS: PANTOPRAZOLE 40MG TABLET PO SCH (09:44)
== END 2022-02-16 10:23 | disposition home or self-care (01) | DRG 689 ==
LOC: ER 21:14 → 2ND 02-14 01:36
PROVIDERS: ADMIT Internal Medicine; ATTEND Internal Medicine
DX: N30.00 Acute cystitis without hematuria (principal); J13 Pneumonia due to Streptococcus pneumoniae; E44.0 Moderate protein-calorie malnutrition; K21.9 Gastro-esophageal reflux disease without esophagitis; I10 Essential (primary) hypertension; Z68.31 Body mass index [BMI] 31.0-31.9, adult; Z88.0 Allergy status to penicillin; Z79.899 Other long term (current) drug therapy; Z90.49 Acquired absence of other specified parts of digestive tract; Z85.3 Personal history of malignant neoplasm of breast; Z20.822 Contact with and (suspected) exposure to COVID-19
CPT/HCPCS: 0240U; 36415; 71045; 80048; 80053; 80061; 80076; 81003; 81015; 83036; 83735; 83880; 84443; 84484; 85025; 85610; 87040; 87086; 87088; 87205; 93005; 94760; 96365; 96375; 97161; 99285; J0360; J0456; J1650; J1940; J2270; J2405; J7050

== ENCOUNTER 2022-02-17 11:41 | Inpatient (IN) | payer MEDICARE ==
--- OUTSIDE RECORDS SUMMARY | 2022-02-17 11:44 | XMS REPORT | Continuity of Care Document ---
:1935 Author Organization [facility] t Address [address] [place] [address] Care Team Providers Name Role Phone Gurvinder_Patricia Attending Clinician Unavailable Love-Mbayo_A_AH Attending Clinician Unavailable Mary Hollins Attending Clinician [phone] Prudence Gaston Admitting Clinician Unavailable Gurvinder_Patricia Admitting Clinician Unavailable Love-Mbayo_A_AH Admitting Clinician Unavailable Payers Payer Name Policy Type Policy Number Effective Date Expiration Date [facility] [id number] 2021 (MEDICARE 00:00:00 REPLACEMENT HMO) [facility] [id number] 2019 [employer] (MEDICARE 00:00:00 REPLACEMENT/ADVANTA GE - HMO) Problems Condition Condition Condition Status Onset Resolution Last Treating Co mments Source Name Details Category Date Date Treatment Clinician Date Primary Primary Problem Active [facility] malignant Malignant 05-22 Fami ly neoplasm [...] Type Date Date Clinician PENICILL Allergy Active [facility] INS to Family substanc Practic e e Peniclli Adverse Active Info Not [facility] Reaction [facility] Social History Smoking Status Start Date Stop Date Source Never Smoker [facility] Medications Ordered Filled Start Stop Current Ordering Indication Dosage Frequency Signature Comments Components Source Medication Medication Date Date Medication? Clinician (SIG) Name Name Tramadol Tramadol Yes Jose Alberto [address] [facility] HCl HCl 6-30 [facility] 00 [facility] anastrozole anastrozole No 1 Q1D anastrozol [...] route. omeprazole omeprazole No 1 Q1D omeprazole [facility] 20 mg 20 mg 20 mg [...] thiazide Ring defined [facility] Anastrozole Anastrozole Yes Jose Alberto not [facility] Ring defined [facility] Omeprazole Omeprazole Yes Jose Alberto not [facility] Ring defined [facility] Losartan Losartan Yes Jose Alberto not [facility] Potassium Potassium Ring defined Sofia [facility] Procedures This patient has no known procedures. Encounters Start End Encounter Admission Attending Care Care Encounter Source Date/Time Date/Time Type Type Clinicians Facility Department ID 2022-02-08 Outpatient [facility] [id number] [facility] 16[facility]02[facility]01 [facility] 2021-12-15 Outpatient [facility] [id number] [facility] 12:01:20 [id number] kes - [facility] Clinics 2021-12-15 Outpatient [facility] [id number] [facility] 11:54:02 [id number] [facility] 2021-11-11 2021-11-11 [id number] [facility] 10:30:00 10:30:00 [id number] [facility] 2021-05-17 2021-05-17 Outpatient LoveAdelfonarennilda [facility] [address] [place] [address] 02:54:00 02:54:00 _A_AH [id number] Family Practic e 2021-02-22 2021-02-22 [place] [id number] [facility] 11:38:00 11:38:00 [id number] [facility] l Group 2021-02-22 2021-02-22 Outpatient Hollins, DMG DMG [id number] 00:00:00 00:00:00 Iliana [id number] Mary [id number] 2021-02-19 2021-02-19 [place] [id number] [facility] 11:15:00 11:15:00 0402 Med[facility] l Group 2020-10-06 2020-10-06 Outpatient [facility] [id number] [facility] 2020-09-29 2020-09-29 Outpatient [facility] [id number] [facility] 2020-09-22 2020-09-22 Outpatient [facility] [id number] [facility] 2020-09-10 2020-09-10 Outpatient [facility] [id number] [facility] 2020-05-19 2020-05-19 [facility] [id number] 08:30:00 08:30:00 [facility] 2020-04-30 2020-04-30 Outpatient [facility] [id number] 11:59:00 11:59:00 _A_AH [id number] Family Practic e 2020-04-20 2020-04-20 Outpatient [facility] [id number] 06:26:00 06:26:00 _A_AH [id number] Family Practic e 2020-03-30 2020-03-30 Outpatient Love-Concepcióno [facility] [address] [place] [address] 02:45:00 02:45:00 _A_AH [id number] Family Practic e 2020-02-24 2020-02-24 [facility] [id number] 14:30:00 14:30:00 [facility] 2020-02-18 2020-02-18 Rachel P [place] - [id number] V illage 00:00:00 00:00:00 LoveJessie [facility] Fam ryan munguia INSTRUMENTATION MANAGER: Medical - Practi c [address] _HOU_V@_ e [facility], [address] [address], [place] [address] , Ph. 2020-01-29 2020-01-29 [facility] [id number] 14:19:00 14:19:00 [facility] 2020-01-28 2020-01-28 [facility] [id number] 10:45:00 10:45:00 t [facility] Clin[facility] 2020-01-08 2020-01-08 Outpatient Love-Concepci[facility] [facility] P [address] [place] [address] 07:20:00 07:20:00 _A_AH [id number] Family Practic e 2019-06-12 2019-06-12 [facility] [id number] 11:07:00 11:07:00 [facility] 2019-06-06 2019-06-06 Outpatient Lynne Bhatt [id number] 10:00:00 10:00:00 t [facility] 2019-05-20 2019-05-20 Outpatient Lynne Bhatt [id number] 09:30:00 09:30:00 t [facility] Results This patient has no known results.
[2022-02-17] MEDS ORDERED: IPRATROPIUM BROM 0.5MG/2.5ML ONE ×2 (12:43→20:01)
[2022-02-17] MEDS ORDERED: FAMOTIDINE 20 MG/2 ML VIAL IV ONE (12:43)
[2022-02-17] MEDS ORDERED: ALBUTEROL 2.5 MG/3 ML NEB SOL ONE ×2 (12:43→20:01)
[2022-02-17] MEDS ORDERED: MORPHINE 2 MG/ML SYR ONE (12:44)
[2022-02-17 12:58] LABS: Absolute Lymphocytes (CBC) 0.8 K/uL (0.7-4.9); Hematocrit 34.2 % (36.0-45.0); MPV 7.6 fL (7.6-11.3); RBC Red Blood Cell Count 4.15 M/uL (3.86-4.86)
[2022-02-17 13:07] LABS: Protime INR 1.04
[2022-02-17 13:23] LABS: Albumin 3.8 g/dL (3.4-5.0); Bilirubin Direct 0.2 mg/dL (0-0.2); Bilirubin Total 0.7 mg/dL (0.2-1.0); Magnesium 1.7 mg/dL (1.8-2.4); Potassium 3.8 mmol/L (3.5-5.1); Protein, Total 7.1 g/dL (6.4-8.2)
[2022-02-17 13:26] LABS: Troponin High Sensitivity 168.5 pg/mL (<58.9)
--- NOTE | 2022-02-17 13:28 | RAD REPORT ---
EXAM DESCRIPTION: RAD - Chest Single View - 02/17/2022 1:09 pm CLINICAL HISTORY: epigastric pain;Chest pain COMPARISON: Portable 02/13/2022 TECHNIQUE: AP portable chest image was obtained 02/17/2022 1:09 pm . FINDINGS: Lung volumes remain low. Diffusely prominent interstitial pattern is seen less pronounced than seen previously. Central vasculature is less prominent. Heart size is upper normal, similar to p rior imaging study. No pneumothorax is present. Bilateral costophrenic angle blunting present. No acu te bony abnormality seen. No acute aortic findings suspected. IMPRESSION: Chronic bilateral and diffuse interstitial opacification similar or less prominent than seen previously. No peripheral mass or consolidation. Mild interstitial infiltrate or diffuse interstitial edema possi ble. Small pleural effusions cannot be excluded.
--- NOTE | 2022-02-17 14:13 | RAD REPORT ---
EXAM DESCRIPTION: CT - Chest For Pe Angio - 02/17/2022 1:50 pm CLINICAL HISTORY: Chest pain;SOB COMPARISON: Rad Therapy [facility] Chest dated 04/11/2017; Rad Therapy [facility] Chest dated 02/23/2017; Chest Single View dated 02/17/2022 TECHNIQUE: Dynamically enhanced 2 mm thick images of the chest were obtained during administration o f approximately 150mL Isovue 370 IV contrast. Coronal and oblique MIP reconstruction images were gene rated and reviewed. Exam utilizes a protocol to evaluate the pulmonary arterial tree. All CT scans are performed using dose optimization technique as appropriate and may include automated exposure control or mA/KV adjustment according to patient size. FINDINGS: No pulmonary emboli are identified. The aorta as imaged shows no acute finding. Dense aortic atherosclerotic wall calcifications are pres ent. No displaced calcification. Coronary artery calcifications are present. No pericardial thickenin g or effusion. Cardiomegaly is present. Bilateral small to moderate pleural effusions are present. There is partial atelectasis in each poste rior aspect of the bilateral lower lobes. There is some patchy posterior lower lobe opacification is favored to be atelectasis rather than infiltrate. No dense consolidation. Interstitial markings are p rominent and accentuated by motion degradation. Interstitial edema or infiltrate is certainly possibl e. No pneumothorax. No pleural based mass. No mediastinal or hilar suspicious masses. No chest wall masses or abnormal axillary lymphadenopathy. IMPRESSION: No pulmonary emboli identified. Small to moderate bilateral pleural effusions with posterior bilateral lower lobe atelectasis. Prominent interstitial pattern throughout the lung hawkins, accentuated by respiratory motion.A mild i nterstitial edema or infiltrate is suspected.
--- NOTE | 2022-02-17 14:15 | RAD REPORT ---
EXAM DESCRIPTION: CT - Head Brain Wo Cont - 02/17/2022 1:50 pm CLINICAL HISTORY: htn, headache COMPARISON: No comparisons TECHNIQUE: Axial 5 mm thick images of the head were obtained without IV contrast. All CT scans are performed using dose optimization technique as appropriate and may include automated exposure control or mA/KV adjustment according to patient size. FINDINGS: No intracranial hemorrhage, mass, edema or shift of mid-line structures. No acute infarcti on changes seen. No cortical edema or sulcal effacement. Moderate for age atrophy changes are present with ventricles in proportion. Chronic ischemic changes are present throughout the cerebral hemisphe res moderate in degree. Minimal basal ganglia and thalamus chronic ischemic changes evident. Dense ar terial tree calcifications are seen. Mastoid air cells and visualized portions of the paranasal sinuses are clear. No acute bony findings. IMPRESSION: No hemorrhage, mass or other acute intracranial finding. Moderate atrophy and chronic ischemic change.
--- NOTE | 2022-02-17 14:25 | RAD REPORT ---
EXAM DESCRIPTION: CT - Abdomen Pelvis W Contrast - 02/17/2022 1:50 pm CLINICAL HISTORY: ABD PAIN COMPARISON: Chest For Pe Angio dated 02/17/2022 TECHNIQUE: Biphasic, helical CT imaging of the abdomen and pelvis was performed following 100 ml non -ionic IV contrast. No oral contrast was administered. All CT scans are performed using dose optimization technique as appropriate and may include automated exposure control or mA/KV adjustment according to patient size. FINDINGS: Lung base findings are detailed in the separate CT chest report. Liver capsule shows mild nodularity which could indicate underlying diffuse hepatic parenchymal disea se or cirrhosis. No focal liver lesion identified. No portal vein thrombus seen. No pancreatic or per ipancreatic acute finding. Gallbladder and biliary tree are also without suspicious finding. Symmetric renal function is seen with no hydronephrosis or suspicious renal mass. No pyelonephritis o r acute parenchymal process. No bladder abnormalities. No adrenal abnormalities. Moderate-size hiatal hernia is present approximately 25% of the stomach intrathoracic. No gross evide nce for gastric wall thickening or mass. Small bowel loops are not dilated. Cecum is low-lying in the right lower quadrant. No direct or indirect evidence for appendicitis. Patient has proximal sigmoid diverticulosis but no acute diverticulitis findings. Minimal diverticulosis elsewhere in the colon. T here is a confluence of several small bowel loops abutting the fundus of the atrophic uterus. Calcifi cations are present which may be within the atrophic ovarian tissue. There is poor tissue plane separ ation between the fundus, ovaries and small bowel loops. Bowel loops may well be adherent to 1 anothe r in the fundus of the uterus. A large or discrete mass is not seen or distinguishable. No abnormal f ree fluid collection. No free air or pneumatosis. Numerous areas of nodularity are seen along the ome ntum a in the superior mid and left upper quadrant region. In the inferior omentum near the umbilicus there is an additional area of clustered nodularity, collectively 3-4 cm in size. No abnormal peria ortic lymphadenopathy. No hernia defects seen. Disc and bone degenerative changes are present. Advanced degenerative disc disease present at L1-2, L 2-3 and L4-5. Significant L5-S1 disc degenerative changes are present. Very dense aortoiliac atherosclerotic calcifications are present. Aortic luminal narrowing up to 50% is seen in several locations. Iliac artery stenoses are likely present as well. IMPRESSION: Suspicious omental nodularity is present. There is a confluence of small bowel abutting the fundus of the uterus as well as the atrophic uterine remnants. Bowel loops appear to be adhesed to 1 another and the fundus of the uterus. A clearly distinguishable mass is not seen. No focal liver lesion is seen. No acute bowel finding identified. The patient does have sigmoid diver ticulosis. Omental nodularity is concerning for intraperitoneal malignant process. A clearly defined primary rodrigo rce is not seen. Carcinoid tumor causing confluence of the small bowel near the uterine fundus would be a consideration to explain the constellation of findings. No other source for an occult malignant process seen.
--- NOTE | 2022-02-17 14:58 | ER ---
Nurse's Notes [facility] Name: Kelly Phillips Age: 86 yrs Sex: Female : 1935 Arrival Date: 02/17/2022 Time: 11:44 Bed 3 Private MD: Diagnosis: Chest pain, unspecified;Hypo-osmolality and hyponatremia Presentation: 02/17 12:06 Chief complaint: Spouse and/or significant other states: patient was released from the [facility] yesterday for high blood pressure and chest pain. However, states he brought the patient back today for evaluation due to patient having a high blood pressure this morning and mid chest pain. reports a blood pressure reading of 200s/100s at home. Coronavirus screen: At this time, the client does not indicate any symptoms associated with coronavirus-19. Ebola Screen: No symptoms or risks identified at this time. Initial Sepsis Screen: Does the patient meet any 2 criteria? No. Patient's initial sepsis screen is negative. Does the patient have a suspected source of infection? No. Patient's initial sepsis screen is negative. Risk Assessment: Do you want to hurt yourself or someone else? Patient reports no desire to harm self or others. Onset of symptoms was February 17, 2022. 12:06 Method Of Arrival: Wheelchair ap3 12:06 Acuity: JASMINA 2 ap3 Triage Assessment: 12:10 General: Appears in no apparent distress. Behavior is calm, cooperative, appropriate ap3 for age. Pain: Complains of pain in xiphoid area. Pain: Pain currently is 9 out of 10 on a pain scale. Neuro: Level of Consciousness is awake, alert, obeys commands, Oriented to person, place, time, situation. Cardiovascular: Reports chest pain, Patient's skin is warm and dry. Respiratory: Airway is patent Respiratory effort is even, unlabored, Respiratory pattern is regular, symmetrical. Historical: - Allergies: 12:09 PENICILLINS; ap3 - Home Meds: 12:09 amlodipine 5 mg tab 1 tab once daily [Active]; anastrozole 1 mg Oral tab 1 tab once ap3 daily [Active]; carvedilol 12.5 mg Oral tab 1 tab 2 times per day [Active]; hydrochlorothiazide 12.5 mg Oral cap 1 cap once daily [Active]; losartan 100 mg Oral tab 1 tab nightly [Active]; omeprazole 20 mg Oral cpDR 1 cap once daily [Active]; - PMHx: 12:09 GERD; Hypertensive disorder; ap3 - PSHx: 12:09 Appendectomy; tumor removal RT breast; ap3 - Immunization history:: Client reports receiving the 2nd dose of the Covid vaccine, and booster Flu vaccine is up to date. - Social history:: Smoking status: Patient denies any tobacco usage or history of. Screenin:11 Abuse screen: Denies threats or abuse. Nutritional screening: No deficits noted. ap3 Tuberculosis screening: No symptoms or risk factors identified. 12:58 Fall Risk None identified. ph Assessment: 12:56 General: Appears in no apparent distress. comfortable, well groomed, Behavior is calm, ph cooperative, appropriate for age, Denies fever, feeling ill. Pain: Complains of pain in epigastric area. Neuro: Level of Consciousness is awake, alert, obeys commands, Oriented to person, place, time, situation. Cardiovascular: Reports chest pain, shortness of breath, Capillary refill < 3 seconds in bilateral fingers Patient's skin is warm and dry. Rhythm is sinus rhythm Chest pain is located in epigastric area. Respiratory: Airway is patent Respiratory effort is even, unlabored, Breath sounds with wheezes. Derm: Skin is intact, Skin is pink, warm \T\ dry. Musculoskeletal: Circulation, motion, and sensation intact. Range of motion: intact in all extremities. 14:04 Reassessment: Patient appears in no apparent distress at this time. Patient and/or vg1 family updated on plan of care and expected duration. Pain level reassessed. Patient is alert, oriented x 3, equal unlabored respirations, skin warm/dry/pink. Patient denies pain at this time. Patient states feeling better. 15:00 Reassessment: Patient appears in no apparent distress at this time. No changes from vg1 previously documented assessment. Patient and/or family updated on plan of care and expected duration. Pain level reassessed. Patient is alert, oriented x 3, equal unlabored respirations, skin warm/dry/pink. 16:09 Reassessment: Patient appears in no apparent distress at this time. No changes from vg1 previously documented assessment. Patient and/or family updated on plan of care and expected duration. Pain level reassessed. Patient is alert, oriented x 3, equal unlabored respirations, skin warm/dry/pink. IVA'Memo PHONE NUMBER [phone]. Vital Signs: 12:06 BP 193 / 80; Pulse 79; Resp 17; Temp 97.5; Pulse Ox 98% ; Weight 72.57 kg; Height 5 ft. ap3 5 in. (165.10 cm); 12:56 BP 180 / 103; Pulse 77; Resp 20; Pulse Ox 99% on Nebulizer Mask; ph 14:04 BP 177 / 88; Pulse 75; Resp 20; Pulse Ox 99% on R/A; vg1 15:00 BP 173 / 78; Pulse 75; Resp 18; Pulse Ox 99% on R/A; vg1 16:10 BP 177 / 77; Pulse 78; Resp 20; Pulse Ox 100% on R/A; vg1 20:39 BP 182 / 69; Pulse 62; Resp 16; Pulse Ox 100% on R/A; st1 21:25 BP 131 / 55; Pulse 83; Resp 16; Pulse Ox 98% on R/A; st1 12:06 Body Mass Index 26.63 (72.57 kg, 165.10 cm) ap3 Vitals: 12:56 Cardiac Rhythm Assessment Sinus rhythm. ph ED Course: 11:44 Patient arrived in ED. kz 12:09 Triage completed. ap3 12:11 Arm band placed on right wrist. ap3 12:14 Delvis Johnson PA is PHCP. cp 12:14 Julio Rouse MD is Attending Physician. cp 12:32 Margarette Roque, RN is Primary Nurse. ph 12:32 Patient has correct armband on for positive identification. Placed in gown. Bed in low ph position. Call light in reach. core mounter on. Pulse ox on. NIBP on. 12:49 Initial lab(s) drawn, by dc, sent to lab. Inserted saline lock: 22 gauge in right vg1 antecubital area, using aseptic technique. Blood collected. 13:11 XRAY Chest (1 view) In Process Unspecified. EDMS 13:52 CT Chest For PE Angio In Process Unspecified. EDMS 13:52 CT Abd/Pelvis - IV Contrast Only In Process Unspecified. EDMS 13:52 CT Head Brain wo Cont In Process Unspecified. EDMS 14:56 Shiva Lantigua MD is Hospitalizing Provider. cp 16:53 No provider procedures requiring assistance completed. Patient admitted, IV remains in ph place. Administered Medications: 12:52 Drug: Pepcid (famotidine) 20 mg Route: IVP; Site: right antecubital; ph 21:43 Follow up: Response: No adverse reaction as6 12:55 Drug: Albuterol - atroVENT (ipratropium) (3:1) (2.5 mg - 0.5 mg) 3 ml Route: Nebulizer; ph 21:43 Follow up: Response: No adverse reaction as6 12:55 Drug: morphine 2 mg Route: IVP; Site: right antecubital; ph 21:42 Follow up: Response: No adverse reaction; RASS: Alert and Calm (0) as6 15:13 Drug: Lasix (furosemide) 40 mg Route: IVP; Site: right antecubital; vg1 21:43 Follow up: Response: No adverse reaction as6 15:16 Drug: Lovenox (enoxaparin) 1 mg/kg Route: Sub-Q; Site: right lower abdomen; vg1 21:42 Follow up: Response: No adverse reaction as6 Outcome: 14:57 Decision to Hospitalize by Provider. cp 20:40 Admitted to Med/surg accompanied by tech, via stretcher, room 216, with chart. st1 20:40 Condition: stable 20:40 Instructed on the need for admit, Demonstrated understanding of instructions. 22:02 Patient left the ED. st1 Signatures: Dispatcher [employer] EDMA Margarette Roque, Delvis Adams RN, ph, MAURICIO PA cp Fara Resendez RN RN ap3 Garcia, Victoria, RN RN vg1 Garland Rubi RN RN as6 Shayy Amaya RN RN st1 Hermelinda Easton
--- NOTE | 2022-02-17 14:58 | EDPHYS ---
Physician Documentation [facility] Name: Kelly Phillips Age: 86 yrs Sex: Female : 1935 Arrival Date: 02/17/2022 Time: 11:44 Bed 3 Private MD: ED Physician Julio Rouse HPI: 02/17 12:35 This 86 yrs old Female presents to ER via Wheelchair with complaints of High cp Blood Pressure. 12:35 The patient or guardian reports chest pain that is located primarily in the substernal cp area, epigastric area. 12:35 Onset: today. The patient has elevated blood pressure and discovered this at home, with cp a home device. Onset: The symptoms/episode began/occurred today. The pain does not radiate. Associated signs and symptoms: Pertinent negatives: dyspnea, headache, lightheadedness, visual changes, vomiting, weakness. 12:35 The chest pain is described as constant. cp 12:35 Duration: The patient or guardian reports a single episode, that is still ongoing, and cp unchanged. 02/18 18:42 Severity of symptoms: At its worst the blood pressure was 200 mm Hg. The patient has cp been recently been admitted at [facility], was discharged yesterday, for similar complaints. Historical: - Allergies: 02/17 12:09 PENICILLINS; ap3 - Home Meds: 12:09 amlodipine 5 mg tab 1 tab once daily [Active]; anastrozole 1 mg Oral tab 1 tab once ap3 daily [Active]; carvedilol 12.5 mg Oral tab 1 tab 2 times per day [Active]; hydrochlorothiazide 12.5 mg Oral cap 1 cap once daily [Active]; losartan 100 mg Oral tab 1 tab nightly [Active]; omeprazole 20 mg Oral cpDR 1 cap once daily [Active]; - PMHx: 12:09 GERD; Hypertensive disorder; ap3 - PSHx: 12:09 Appendectomy; tumor removal RT breast; ap3 - Immunization history:: Client reports receiving the 2nd dose of the Covid vaccine, and booster Flu vaccine is up to date. - Social history:: Smoking status: Patient denies any tobacco usage or history of. ROS: 12:40 Constitutional: Negative for chills, fever, poor PO intake. cp 12:40 Eyes: Negative for injury, pain, redness, and discharge. cp 12:40 ENT: Negative for ear pain, sore throat, difficulty swallowing, difficulty handling secretions. 12:40 Cardiovascular: Positive for chest pain, Negative for edema, palpitations. 12:40 Respiratory: Positive for shortness of breath, Negative for cough, wheezing. 12:40 Abdomen/GI: Positive for abdominal pain, of the epigastric area, Negative for vomiting, diarrhea, constipation. 12:40 Back: Negative for radiated pain. 12:40 Neuro: Negative for altered mental status, headache, syncope, weakness. 12:40 All other systems are negative. Exam: 12:23 ECG was reviewed by the Attending Physician. cp 12:45 Constitutional: The patient appears in no acute distress, alert, awake, cp non-diaphoretic, non-toxic, well developed, well nourished. 12:45 Head/Face: Normocephalic, atraumatic. cp 12:45 Eyes: Periorbital structures: appear normal, Pupils: equal, round, and reactive to light and accomodation, Extraocular movements: intact throughout, Conjunctiva: normal, no exudate, no injection, Sclera: no appreciated abnormality, Lids and lashes: appear normal, bilaterally. 12:45 ENT: External ear(s): are unremarkable, Nose: is normal, Mouth: Lips: moist, Oral mucosa: pink and intact, moist, Posterior pharynx: Airway: no evidence of obstruction, patent. 12:45 Neck: ROM/movement: is normal, is supple, without pain, no range of motions limitations. 12:45 Chest/axilla: Inspection: normal, Palpation: crepitus, is not appreciated, tenderness, that is moderate, of the xiphoid area and epigastric area. 12:45 Cardiovascular: Rate: normal, Rhythm: regular, Edema: is not appreciated, JVD: is not appreciated. 12:45 Respiratory: the patient does not display signs of respiratory distress, Respirations: normal, no use of accessory muscles, no retractions, labored breathing, is not present, Breath sounds: are clear throughout, no decreased breath sounds, no stridor, no wheezing. 12:45 Abdomen/GI: Inspection: abdomen appears normal, Bowel sounds: active, all quadrants, Palpation: soft, in all quadrants, moderate abdominal tenderness, in the epigastric area, rebound tenderness, is not appreciated, voluntary guarding, is elicited in the epigastric area. 12:45 Back: pain, is absent, ROM is normal. 12:45 Neuro: Orientation: to person, place \\T\\ time. Mentation: is normal, Motor: moves all fours, strength is normal, Sensation: is normal. Vital Signs: 12:06 BP 193 / 80; Pulse 79; Resp 17; Temp 97.5; Pulse Ox 98% ; Weight 72.57 kg; Height 5 ft. ap3 5 in. (165.10 cm); 12:56 BP 180 / 103; Pulse 77; Resp 20; Pulse Ox 99% on Nebulizer Mask; ph 14:04 BP 177 / 88; Pulse 75; Resp 20; Pulse Ox 99% on R/A; vg1 15:00 BP 173 / 78; Pulse 75; Resp 18; Pulse Ox 99% on R/A; vg1 16:10 BP 177 / 77; Pulse 78; Resp 20; Pulse Ox 100% on R/A; vg1 20:39 BP 182 / 69; Pulse 62; Resp 16; Pulse Ox 100% on R/A; st1 21:25 BP 131 / 55; Pulse 83; Resp 16; Pulse Ox 98% on R/A; st1 12:06 Body Mass Index 26.63 (72.57 kg, 165.10 cm) ap3 MDM: 12:25 Patient medically screened. cp 13:00 Differential diagnosis: abnormal EKG, acute myocardial infarction, acute pericarditis, cp chest wall pain, congestive heart failure cholecystitis, Cholelithiasis costochondritis, hypertensive crisis, Malignant HTN. 14:30 Data reviewed: vital signs, nurses notes, lab test result(s), EKG, radiologic studies, cp CT scan, plain films. 14:49 Physician consultation: Juliana Trevizo MD was contacted at 14:49, regarding consult, cp patient's condition, and will see patient in ED, later today, wants patient to be given 40 mg Lasix. 14:55 Physician consultation: Shiva Lantigua MD was called at 14:55, was contacted at 14:55, cp regarding admission, to the telemetry unit. patient's condition, requests cardiology consult. 02/17 12:26 Order name: Basic Metabolic Panel; Complete Time: 14:25 cp 02/17 14:25 Interpretation: Normal except: NA 125; CL 89; GLUC 140; GFR 68. cp 02/17 12:26 Order name: CBC with Diff; Complete Time: 13:10 cp 02/17 13:11 Interpretation: Normal except: HGB 11.4; HCT 34.2; SYDNIE% 80.8; LYM% 12.0. cp 02/17 12:26 Order name: LFT's; Complete Time: 14:25 cp 02/17 12:26 Order name: Magnesium; Complete Time: 14:25 cp 02/17 14:25 Interpretation: MG 1.7; Reviewed. cp 02/17 12:26 Order name: NT PRO-BNP; Complete Time: 14:25 cp 02/17 14:25 Interpretation: Reviewed. cp 02/17 12:26 Order name: PT-INR; Complete Time: 13:10 cp 02/17 12:26 Order name: Troponin HS; Complete Time: 14:25 cp 02/17 14:26 Interpretation: Abnormal: Troponin HS 168.5. 02/17 12:26 Order name: Lipase; Complete Time: 14:25 cp 02/17 13:14 Order name: Urine Microscopic Only 02/17 14:24 Order name: CREATININE WHOLE BLOOD; Complete Time: 14:25 EDNE 02/17 15:02 Order name: Urine Dipstick-Ancillary EDNE 02/17 16:57 Order name: Basic Metabolic Panel EDNE 02/17 16:57 Order name: Basic Metabolic Panel EDNE 02/17 16:57 Order name: CBC with Automated Diff EDNE 02/17 12:26 Order name: XRAY Chest (1 view); Complete Time: 14:25 cp 02/17 13:16 Order name: CT Chest For PE Angio; Complete Time: 14:25 cp 02/17 16:57 Order name: CBC with Automated Diff EDNE 02/17 16:57 Order name: Lipid Profile EDNE 02/17 16:57 Order name: Lipid Profile EDNE 02/17 16:57 Order name: Magnesium EDNE 02/17 16:57 Order name: Magnesium EDNE 02/17 17:09 Order name: Troponin High Sensitivity EDNE 02/17 17:17 Order name: SARS-COV-2 RT PCR (Document "Date of Onset" if Symptomatic) 02/17 18:03 Order name: Osmolality, Serum EDNE 02/17 18:03 Order name: Osmolality, Urine EDNE 02/17 18:03 Order name: UR POTASSIUM EDNE 02/17 18:03 Order name: UR SODIUM EDNE 02/17 18:03 Order name: Uric Acid EDNE 02/17 18:04 Order name: Albumin EDNE 02/17 18:04 Order name: Phosphorus EDNE 02/17 12:26 Order name: EKG; Complete Time: 12:27 cp 02/17 12:26 Order name: Cardiac monitoring; Complete Time: 12:51 cp 02/17 12:26 Order name: EKG - Nurse/Tech; Complete Time: 12:51 cp 02/17 12:26 Order name: IV Saline Lock; Complete Time: 12:51 cp 02/17 12:26 Order name: Labs collected and sent; Complete Time: 12:51 cp 02/17 12:26 Order name: O2 Per Protocol; Complete Time: 12:51 cp 02/17 12:26 Order name: O2 Sat Monitoring; Complete Time: 12:51 cp 02/17 13:14 Order name: Urine Dipstick-Ancillary (obtain specimen); Complete Time: 15:04 cp 02/17 13:16 Order name: CT Abd/Pelvis - IV Contrast Only; Complete Time: 14:27 cp 02/17 13:25 Order name: CT Head Brain wo Cont; Complete Time: 14:25 cp 02/17 16:57 Order name: Respiratory Therapy Consult [facility] 02/17 16:57 Order name: Heart Healthy [facility] 02/17 16:57 Order name: Echo with Doppler EDNE EC:23 Rate is 73 beats/min. Rhythm is regular. NC interval is normal. QRS interval is cp prolonged at 144 msec. QT interval is normal. T waves are Inverted in leads I, aVL. Interpreted by me. Reviewed by me. Administered Medications: 12:52 Drug: Pepcid (famotidine) 20 mg Route: IVP; Site: right antecubital; ph 21:43 Follow up: Response: No adverse reaction as6 12:55 Drug: Albuterol - atroVENT (ipratropium) (3:1) (2.5 mg - 0.5 mg) 3 ml Route: Nebulizer; ph 21:43 Follow up: Response: No adverse reaction as6 12:55 Drug: morphine 2 mg Route: IVP; Site: right antecubital; ph 21:42 Follow up: Response: No adverse reaction; RASS: Alert and Calm (0) as6 15:13 Drug: Lasix (furosemide) 40 mg Route: IVP; Site: right antecubital; vg1 21:43 Follow up: Response: No adverse reaction as6 15:16 Drug: Lovenox (enoxaparin) 1 mg/kg Route: Sub-Q; Site: right lower abdomen; vg1 21:42 Follow up: Response: No adverse reaction as6 Disposition: 02/18 16:28 Co-signature as Attending Physician, Julio Rouse MD. rn Disposition Summary: 02/17/22 14:57 Hospitalization Ordered Hospitalization Status: Inpatient Admission cp Provider: Shiva Lantigua cp Location: Telemetry/MedSurg (Inpatient) cp Condition: Fair cp Problem: new cp Symptoms: have improved cp Bed/Room Type: Standard cp Room Assignment: 216(02/17/22 20:05) cg Diagnosis - Chest pain, unspecified cp - Hypo-osmolality and hyponatremia cp Forms: - Medication Reconciliation Form cp - SBAR form cp Signatures: Dispatcher [employer] EDJulio Vargas MD MD rn Hall, Patricia, RN RN ph Delvis Johnson, MAURICIO PA cp Charlee Calabrese RN RN cg Fara Resendez RN RN [id number] Sabrina Calabrese RN RN vg1 Garland Rubi RN as6 Corrections: (The following items were deleted from the chart) 02/17 20:05 14:57 cp cg
[2022-02-17 15:02] LABS: Urine Blood Negative (Negative); Urine Glucose Negative (Negative); Urine Protein Negative (Negative)
[2022-02-17] MEDS ORDERED: FUROSEMIDE 40 MG/4 ML VIAL ONE (15:11)
[2022-02-17] MEDS ORDERED: ENOXAPARIN 80 MG/0.8 ML SQ ONE (15:12)
[2022-02-17 15:14] LABS: Urine Bacteria <20 /HPF (<20); Urine RBC NONE SEEN /HPF (NONE SEEN)
[2022-02-17] MEDS ORDERED: ONDANSETRON 4 MG/2 ML VIAL IV PRN (16:47)
--- NOTE | 2022-02-17 17:14 | P.HP ---
Certification for Inpatient Patient admitted to: Inpatient With expected LOS: >2 Midnights Practitioner: I am a practitioner with admitting privileges, knowledge of patient current condition, hospital course, and medical plan of care. Services: Services provided to patient in accordance with Admission requirements found in Title 42 Section 412.3 of the Code of Federal Regulations Patient History Date of Service: 02/17/22 Primary Care Provider: Grzegorz Reason for admission: Chest pain History of Present Illness: Patient with a history of htn and arthritis. She was admitted earlier this week with a pneumonia and uti. The patient was sent home just yesterday. This morning she started having moderate substernal chest pressure. She also complained of elevated bloop pressure. SBP approx 200. The patients brought her to the ER. her sodium was low. However yesterday it was 129 as opposed to 125 today. However she did have an elevation of her troponins. Allergies Penicillins Allergy (Verified 09/16/16 10:49) Rash Home Medications: Losartan Potassium [Cozaar] 100 mg PO DAILY WITH BREAKFAST 09/16/16 Omeprazole 20 mg PO DAILY 09/16/16 hydroCHLOROthiazide [Hydrodiuril] 12.5 mg PO DAILY 09/16/16 Carvedilol [Coreg] 12.5 mg PO BID 02/14/22 Anastrozole [Arimidex*] 1 mg PO BEDTIME 02/15/22 Albuterol Inhaler [Ventolin Inhaler*] 2 puff IH Q6H PRN 30 Days #30 hfa.aer.[email or web address] 02/16/22 Azithromycin [Zithromax] 500 mg PO DAILY 5 Days #5 tablet 02/16/22 - Past Medical/Surgical History -: right breast biopsy 50 years ago - Social History Alcohol use: Yes CD- Drugs: No Caffeine use: Yes Review of Systems 10-point ROS is otherwise unremarkable Cardiovascular: Chest Pain Physical Examination - Physical Exam General: Alert, In no apparent distress HEENT: Atraumatic, PERRLA, Mucous membr. moist/pink, EOMI, Sclerae nonicteric Neck: Supple, 2+ carotid pulse no bruit, No LAD, Without JVD or thyroid abnormality Respiratory: Clear to auscultation bilaterally, Normal air movement Cardiovascular: Regular rate/rhythm, Normal S1 S2 Gastrointestinal: Normal bowel sounds, No tenderness Musculoskeletal: No tenderness Integumentary: No rashes Neurological: Normal gait, Normal speech, Normal strength at 5/5 x4 extr, Normal tone, Normal affect Lymphatics: No axilla or inguinal lymphadenopathy - Studies Laboratory Data (last 24 hrs) 02/17/22 12:49: PT 11.5, INR 1.04 02/17/22 12:49: WBC 6.7 D, Hgb 11.4 L, Hct 34.2 L, Plt Count 291 02/17/22 12:49: Sodium 125 L, Potassium 3.8, BUN 13, Creatinine 0.80, Glucose 140 H, Magnesium 1.7 L, Total Bilirubin 0.7, AST 31, ALT 26, Alkaline Phosphatase 55, Lipase 131 Assessment and Plan - Problems (Diagnosis) (1) NSTEMI (non-ST elevated myocardial infarction) Current Visit: Yes Status: Acute Plan: may be a troponin leak. have in a consult to cardiology. Will get routine labs, an echocardiogram and follow her troponins (2) HTN (hypertension) Current Visit: No Status: Acute Plan: restart her losartan and hctz. Hold the hydralazine as the patient has hyponatremia. Qualifiers: Hypertension type: primary hypertension (3) Pneumonia Current Visit: No Status: Acute Plan: continue the zithromax from previous admission. It is most likely strep pneumonia. Qualifiers: (4) Hyponatremia Current Visit: Yes Status: Acute Plan: possible due to diuretics. Will hold the hctz. Consider a dose of lasix. May start her on sfluids in the morning. Her creatine is doing well. - Advance Directives Does patient have a Living Will: Yes Does patient have a Durable POA for Healthcare: Yes - Code Status/Comfort Care Code Status Assessed: Yes Code Status: Full Code Physician Review: Patient Assessed, Agree with Above Assessment and Plan Critical Care: No Time Spent Managing Pts Care (In Minutes): 45
--- NOTE | 2022-02-17 17:29 | P.CNS ---
Date of Consult: 02/17/22 Reason for Consult: Hyponatremia Requesting Physician: Shiva Lantigua Primary Care Provider: Grzegorz Chief Complaint: Chest pain History of Present Illness: 86F w/ PMHx of Htn, osteoarthritis, R knee pain s/p recent fall, & recent pneumonia & UTI, who p/w chest pain, found to have accelerated Htn, & hyponatremia. Her pain is substernal/epigastric in location, non-pleuritic & non-tender. Initial SBP 200 mmHg. +trop, BNP elevated. Serum Na 125. Admitted for further eval & mngt. Allergies Penicillins Allergy (Verified 09/16/16 10:49) Rash Home Medications: Losartan Potassium [Cozaar] 100 mg PO DAILY WITH BREAKFAST 09/16/16 Omeprazole 20 mg PO DAILY 09/16/16 hydroCHLOROthiazide [Hydrodiuril] 12.5 mg PO DAILY 09/16/16 Carvedilol [Coreg] 12.5 mg PO BID 02/14/22 Anastrozole [Arimidex*] 1 mg PO BEDTIME 02/15/22 Albuterol Inhaler [Ventolin Inhaler*] 2 puff IH Q6H PRN 30 Days #30 hfa.aer.ad 02/16/22 Azithromycin [Zithromax] 500 mg PO DAILY 5 Days #5 tablet 02/16/22 - Past Medical/Surgical History -: right breast biopsy 50 years ago - Social History Alcohol use: Yes CD- Drugs: No Caffeine use: Yes Review of Systems General: Weakness Eyes: Unremarkable ENT: Unremarkable Respiratory: Unremarkable Cardiovascular: Chest Pain Gastrointestinal: Other (epigastric pain) Genitourinary: Unremarkable Musculoskeletal: Unremarkable Integumentary: Unremarkable Neurological: Unremarkable Lymphatics: Unremarkable Physical Examination General: Other (appears as her stated age) HEENT: Atraumatic, Normocephalic Neck: Supple, JVD not distended Respiratory: Clear to auscultation bilaterally Cardiovascular: No edema, No rubs, No murmurs Gastrointestinal: Soft and benign, No guarding Musculoskeletal: No clubbing, No swelling Integumentary: No rashes, No warmth Neurological: Normal speech, Normal tone Lymphatics: No axilla or inguinal lymphadenopathy Urinary: Other (no bladder distention) External genitalia: Deferred Rectal: Deferred Laboratory Data (last 24 hrs) 02/17/22 12:49: PT 11.5, INR 1.04 02/17/22 12:49: WBC 6.7 D, Hgb 11.4 L, Hct 34.2 L, Plt Count 291 02/17/22 12:49: Sodium 125 L, Potassium 3.8, BUN 13, Creatinine 0.80, Glucose 140 H, Magnesium 1.7 L, Total Bilirubin 0.7, AST 31, ALT 26, Alkaline Phosphatase 55, Lipase 131 Conclusions/Impression: # Hyponatremia likely 2/2 high ADH state from acute cardiac issues + R knee pain + HCTZ use Serum Na 125 F/u serum osm, & serum uric acid F/u random urine osm/Na/K Dc HCTZ Replete K prn to keep serum K at 4.0 or higher Avoid hypoMg Advised on adeq po solid food intake for prompt hyponatremia correction Give Tolvaptan 15 mg po x 1 Avoid NaCl tabs or Na-containing IV fluid d/t high BNP Monitor serum Na q12h # HypoMg MgCl po bid x 4 doses # Chest/epigastric pain Per other services # R knee pain S/p recent fall Per other services May give tylenol +/- tramadol prn Avoid other narcotics Cold pack prn Refer to physical therapy # Accelerated Htn Cont Carvedilol Hydralazine IV prn for SBP > 160 mmHg
[2022-02-17] MEDS ORDERED: HYDRALAZINE HCL 20 MG/ML VIAL IV PRN (17:56)
[2022-02-17] MEDS ORDERED: TOLVAPTAN 15 MG TABLET PO ONE (19:00)
[2022-02-17] MEDS: ALBUTEROL 2.5 MG/3 ML NEB SOL NEB SCH (19:50)
[2022-02-17] MEDS: IPRATROPIUM BROM 0.5MG/2.5ML NEB SCH (19:50)
[2022-02-17] MEDS ORDERED: ENOXAPARIN 80 MG/0.8 ML SQ SCH (21:00)
[2022-02-17] MEDS ORDERED: POTASSIUM 25 MEQ EFFERV TAB PO ONE (21:45)
[2022-02-17 22:36] VITALS: BMI 26.4
[2022-02-18] MEDS: MAGNESIUM CHLORIDE 64 MG TAB PO SCH ×3 (01:00→21:08)
[2022-02-18] MEDS: carvediloL 12.5 MG TAB PO SCH ×2 (01:01→09:31)
[2022-02-18] MEDS: IPRATROPIUM BROM 0.5MG/2.5ML NEB SCH ×6 (02:00→20:10)
[2022-02-18] MEDS: ALBUTEROL 2.5 MG/3 ML NEB SOL NEB SCH ×4 (02:00→20:10)
[2022-02-18] MEDS ORDERED: TOLVAPTAN 15 MG TABLET PO ONE ×3 (03:00→23:00)
[2022-02-18] MEDS: ENOXAPARIN 80 MG/0.8 ML SQ SCH ×2 (04:07→17:27)
[2022-02-18 05:51] LABS: Absolute Lymphocytes (CBC) 1.3 K/uL (0.7-4.9); Hematocrit 32.6 % (36.0-45.0); Lymphocytes % 20.7 % (15.3-44.8); MPV 7.7 fL (7.6-11.3)
[2022-02-18 06:00] LABS: Magnesium 1.7 mg/dL (1.8-2.4); Potassium 3.8 mmol/L (3.5-5.1)
[2022-02-18 06:05] LABS: Albumin 3.2 g/dL (3.4-5.0); Phosphorus 3.4 mg/dL (2.5-4.9)
[2022-02-18] MEDS ORDERED: POTASSIUM 25 MEQ EFFERV TAB PO ONE (07:00)
--- NOTE | 2022-02-18 07:27 | P.PN ---
Subjective Date of Service: 02/18/22 Primary Care Provider: Grzegorz Chief Complaint: Chest pain Subjective: Other (Reports having less R knee pain. Denies N/V/D.) Physical Examination - Vital Signs Temperature: 97.0 F Blood Pressure: 152/69 Pulse: 75 Respirations: 18 Pulse Ox (%): 97 - Physical Exam General: In no apparent distress HEENT: Atraumatic, Normocephalic Neck: Supple Respiratory: Clear to auscultation bilaterally Cardiovascular: No rubs, No murmurs Gastrointestinal: Soft and benign, No guarding Musculoskeletal: No clubbing, No swelling Integumentary: No warmth Neurological: Normal speech, Normal tone Lymphatics: No axilla or inguinal lymphadenopathy Urinary: Other (no bladder distention) External genitalia: Deferred Rectal: Deferred - Studies Laboratory Data (last 24 hrs) 02/17/22 14:45: Uric Acid 4.6 02/17/22 12:49: PT 11.5, INR 1.04 02/17/22 12:49: WBC 6.7 D, Hgb 11.4 L, Hct 34.2 L, Plt Count 291 02/17/22 12:49: Sodium 125 L, Potassium 3.8, BUN 13, Creatinine 0.80, Glucose 140 H, Magnesium 1.7 L, Total Bilirubin 0.7, AST 31, ALT 26, Alkaline Phosphatase 55, Lipase 131 Assessment And Plan - Plan # Hyponatremia likely 2/2 high ADH state from acute cardiac issues + R knee pain + HCTZ use Serum Na improved to 132 Hypotonic, serum osm low BUN wnl, serum uric acid wnl - SIADH or SLN unlikely F/u random urine osm/Na/K Dc HCTZ. Avoid thiazides permanently Replete K prn to keep serum K at 4.0 or higher Avoid hypoMg Advised on adeq po solid food intake for prompt hyponatremia correction Give 2nd dose of Tolvaptan 15 mg po Avoid NaCl tabs or Na-containing IV fluid d/t high BNP Monitor serum Na q12h # HypoMg MgCl po bid x 4 doses # Chest/epigastric pain Resolved TTE in 02/2018 showed normal LVEF 66% Chest CT on 02/17/22 showed no pulmo embolism; no pulmo Htn; +small to mod bilat pleural effusion; +interstitial infiltrates BNP elevation likely 2/2 recent PNA, aggravated by accelerated Htn Avoid Na load po or IV as above Monitor # R knee pain S/p recent fall Per other services May give tylenol +/- tramadol prn Avoid other narcotics Cold pack prn Refer to physical therapy # Accelerated Htn BP better controlled Cont Carvedilol + Losartan Avoid Thiazide as above. Add CCB if needing a 3rd BP med. Hydralazine IV prn for SBP > 160 mmHg # Dispo Anticipate dc tomorrow Physician Review: Patient Assessed, Agree with Above Assessment and Plan
[2022-02-18] MEDS ORDERED: INFLUENZA VACCINE (for 6+ mo) 0.5 ML DOSE IMVAC ONE (08:00)
[2022-02-18] MEDS ORDERED: HOME MED 1 EA UNK (Losartan Potassium [Cozaar] 100 MG Tablet) PO SCH (08:00)
[2022-02-18] MEDS ORDERED: HOME MED 1 EA UNK (Omeprazole [Omeprazole] 20 MG Tablet.Dr) PO SCH (09:00)
[2022-02-18] MEDS ORDERED: AZITHROMYCIN 500 MG PO SCH (09:00)
[2022-02-18] MEDS: LOSARTAN POTASSIUM 50 MG TABLET PO SCH (09:30)
[2022-02-18] MEDS: ASPIRIN EC 81 MG TAB PO SCH (09:30)
[2022-02-18] MEDS: AZITHROMYCIN 250 MG TAB PO SCH (09:30)
[2022-02-18] MEDS: FUROSEMIDE 40 MG/4 ML VIAL IV SCH (09:31)
[2022-02-18] MEDS: PANTOPRAZOLE 40MG TABLET PO SCH (09:31)
--- NOTE | 2022-02-18 12:30 | P.PN ---
Subjective Date of Service: 02/18/22 Primary Care Provider: Grzegorz Chief Complaint: Chest pain Subjective: Improving Review of Systems 10-point ROS is otherwise unremarkable Physical Examination - Vital Signs Temperature: 97.3 F Blood Pressure: 130/62 Pulse: 78 Respirations: 16 Pulse Ox (%): 98 - Physical Exam General: Alert, In no apparent distress HEENT: Atraumatic, PERRLA, EOMI Neck: Supple, JVD not distended Respiratory: Clear to auscultation bilaterally, Normal air movement Cardiovascular: Regular rate/rhythm, Normal S1 S2 Gastrointestinal: Normal bowel sounds, No tenderness Musculoskeletal: No tenderness Integumentary: No rashes Neurological: Normal speech, Normal tone, Normal affect Lymphatics: No axilla or inguinal lymphadenopathy - Studies Laboratory Data (last 24 hrs) 02/17/22 14:45: Uric Acid 4.6 02/17/22 12:49: PT 11.5, INR 1.04 02/17/22 12:49: WBC 6.7 D, Hgb 11.4 L, Hct 34.2 L, Plt Count 291 02/17/22 12:49: Sodium 125 L, Potassium 3.8, BUN 13, Creatinine 0.80, Glucose 140 H, Magnesium 1.7 L, Total Bilirubin 0.7, AST 31, ALT 26, Alkaline Phosphatase 55, Lipase 131 Assessment And Plan - Current Problems (Diagnosis) (1) NSTEMI (non-ST elevated myocardial infarction) Current Visit: Yes Status: Acute Plan: may be a troponin leak. have in a consult to cardiology. Will get routine labs, an echocardiogram and follow her troponins 4.1 Plans for stress test tomorrow (2) HTN (hypertension) Current Visit: No Status: Acute Plan: restart her losartan and hctz. Hold the hydralazine as the patient has hyponatremia. Qualifiers: Hypertension type: primary hypertension (3) Pneumonia Current Visit: No Status: Acute Plan: continue the zithromax from previous admission. It is most likely strep pneumonia. Qualifiers: (4) Hyponatremia Current Visit: Yes Status: Acute Plan: possible due to diuretics. Will hold the hctz. Consider a dose of lasix. May start her on sfluids in the morning. Her creatine is doing well. Discharge Plan: Home Plan to discharge in: 48 Hours - Code Status/Comfort Care Code Status Assessed: No Physician Review: Patient Assessed, Agree with Above Assessment and Plan Critical Care: No Time Spent Managing PTS Care (In Minutes): 25
[2022-02-18] MEDS: carvediloL 6.25 MG TAB PO SCH (21:00)
[2022-02-19] MEDS ORDERED: TOLVAPTAN 15 MG TABLET PO ONE
[2022-02-19] MEDS: IPRATROPIUM BROM 0.5MG/2.5ML NEB SCH ×3 (00:50→08:00)
[2022-02-19] MEDS: ALBUTEROL 2.5 MG/3 ML NEB SOL NEB SCH ×2 (00:50→08:00)
[2022-02-19] MEDS: ENOXAPARIN 80 MG/0.8 ML SQ SCH ×2 (04:37→17:07)
[2022-02-19] MEDS: MAGNESIUM CHLORIDE 64 MG TAB PO SCH (08:27)
[2022-02-19] MEDS: AZITHROMYCIN 250 MG TAB PO SCH (08:27)
[2022-02-19] MEDS: FUROSEMIDE 40 MG/4 ML VIAL IV SCH (08:27)
[2022-02-19] MEDS: PANTOPRAZOLE 40MG TABLET PO SCH (08:27)
[2022-02-19] MEDS: LOSARTAN POTASSIUM 50 MG TABLET PO SCH (08:27)
[2022-02-19] MEDS: ASPIRIN EC 81 MG TAB PO SCH (08:27)
[2022-02-19] MEDS: carvediloL 6.25 MG TAB PO SCH (08:27)
[2022-02-19] MEDS ORDERED: ALBUTEROL 2.5 MG/3 ML NEB SOL NEB PRN (08:43)
[2022-02-19] MEDS ORDERED: IPRATROPIUM BROM 0.5MG/2.5ML NEB PRN (08:44)
--- NOTE | 2022-02-19 10:35 | P.PN ---
Subjective Date of Service: 02/19/22 Primary Care Provider: Grzegorz Chief Complaint: Chest pain Subjective: No new changes, Improving Review of Systems 10-point ROS is otherwise unremarkable Physical Examination - Vital Signs Temperature: 98.1 F Blood Pressure: 141/58 Pulse: 67 Respirations: 21 Pulse Ox (%): 96 - Physical Exam General: Alert, In no apparent distress HEENT: Atraumatic, PERRLA, EOMI Neck: Supple, JVD not distended Respiratory: Clear to auscultation bilaterally, Normal air movement Cardiovascular: Regular rate/rhythm, Normal S1 S2 Gastrointestinal: Normal bowel sounds, No tenderness Musculoskeletal: No tenderness Integumentary: No rashes Neurological: Normal speech, Normal tone, Normal affect Lymphatics: No axilla or inguinal lymphadenopathy Assessment And Plan - Current Problems (Diagnosis) (1) NSTEMI (non-ST elevated myocardial infarction) Current Visit: Yes Status: Acute Plan: may be a troponin leak. have in a consult to cardiology. Will get routine labs, an echocardiogram and follow her troponins 4.2 stress test on Monday (2) HTN (hypertension) Current Visit: No Status: Acute Plan: restart her losartan and hctz. Hold the hydralazine as the patient has hyponatremia. Qualifiers: Hypertension type: primary hypertension (3) Pneumonia Current Visit: No Status: Acute Plan: continue the zithromax from previous admission. It is most likely strep pneumonia. Qualifiers: (4) Hyponatremia Current Visit: Yes Status: Resolved Plan: possible due to diuretics. Will hold the hctz. Consider a dose of lasix. May start her on sfluids in the morning. Her creatine is doing well. 4.2 stop the lasix Will continue monitoring the sodium (5) AV block, 2nd degree Current Visit: Yes Status: Acute Plan: She reports no symptoms. Will lower the betablocker. Will discuss with cardiology. Discharge Plan: Home Plan to discharge in: Greater than 2 days - Code Status/Comfort Care Code Status Assessed: No Physician Review: Patient Assessed, Agree with Above Assessment and Plan Critical Care: No Time Spent Managing PTS Care (In Minutes): 25
--- NOTE | 2022-02-19 11:14 | P.PN ---
Subjective Date of Service: 02/19/22 Primary Care Provider: Grzegorz Chief Complaint: Chest pain Subjective: Other (No c/o N/V/D. Reports having some jt pains on both hands & R knee.) Physical Examination - Vital Signs Temperature: 98.1 F Blood Pressure: 141/58 Pulse: 67 Respirations: 21 Pulse Ox (%): 96 - Physical Exam General: In no apparent distress HEENT: Atraumatic, Normocephalic Neck: Supple, JVD not distended Respiratory: Clear to auscultation bilaterally Cardiovascular: No rubs, No murmurs Gastrointestinal: Soft and benign, Non-distended Musculoskeletal: Swelling (R leg) Neurological: Normal speech, Normal tone Urinary: Other (No bladder distention) External genitalia: Deferred Rectal: Deferred Assessment And Plan - Plan # Hyponatremia likely 2/2 high ADH state from acute cardiac issues + R knee pain + HCTZ use Serum Na improved to 132 Hypotonic, serum osm low BUN wnl, serum uric acid wnl - SIADH or SLN unlikely Low urine Na, high urine K, +mild secondary hyperaldo state. No need to add gabriella. Dc HCTZ. Avoid thiazides permanently. Replete K prn to keep serum K at 4.0 or higher Avoid hypoMg Advised on adeq po solid food intake for prompt hyponatremia correction Received Tolvaptan x 2 doses Avoid NaCl tabs or Na-containing IV fluid d/t high BNP [place] po fluid intake Monitor serum Na q12h # HypoMg MgCl po bid x 4 doses Monitor # Chest/epigastric pain Resolved TTE in 02/2018 showed normal LVEF 66% Chest CT on 02/17/22 showed no pulmo embolism; no pulmo Htn; +small to mod bilat pleural effusion; +interstitial infiltrates BNP elevation likely 2/2 recent PNA, aggravated by accelerated Htn Avoid Na load po or IV as above Stress test on 02/21 # Osteoarthritis, multiple jt pains, hand jt pains, R knee pain S/p recent fall Per other services May give tylenol +/- tramadol prn Avoid other narcotics Cold pack prn Refer to physical therapy # Accelerated Htn BP better controlled Cont Carvedilol + Losartan Avoid Thiazide as above Add CCB if needing a 3rd BP med. Hydralazine IV prn for SBP > 160 mmHg # Dispo Dc when cardio issues cleared Physician Review: Patient Assessed, Agree with Above Assessment and Plan
[2022-02-19 11:24] VITALS: O2SAT 96
[2022-02-19 12:10] LABS: Albumin 3.3 g/dL (3.4-5.0); Magnesium 2.1 mg/dL (1.8-2.4); Phosphorus 3.7 mg/dL (2.5-4.9); Potassium 3.7 mmol/L (3.5-5.1)
[2022-02-19] MEDS: carvediloL 3.125 MG TAB PO SCH (17:08)
[2022-02-20] MEDS: ENOXAPARIN 80 MG/0.8 ML SQ SCH ×2 (03:57→14:10)
[2022-02-20] MEDS: carvediloL 3.125 MG TAB PO SCH ×2 (05:09→17:13)
--- NOTE | 2022-02-20 05:33 | P.PN ---
Subjective Date of Service: 02/20/22 Primary Care Provider: Grzegorz Chief Complaint: Chest pain Subjective: Other (No complaints of nausea, vomiting, diarrhea, or shortness of breath.) Physical Examination - Vital Signs Temperature: 97.3 F Blood Pressure: 127/57 Pulse: 78 Respirations: 16 Pulse Ox (%): 97 - Physical Exam General: In no apparent distress HEENT: Atraumatic, Normocephalic Neck: Supple, JVD not distended Respiratory: Clear to auscultation bilaterally Cardiovascular: No rubs, No murmurs Gastrointestinal: Soft and benign, No guarding Integumentary: No warmth Neurological: Normal speech, Normal tone Lymphatics: No axilla or inguinal lymphadenopathy Urinary: Other (no bladder distention) External genitalia: Deferred Rectal: Deferred Assessment And Plan - Plan # Hyponatremia likely 2/2 high ADH state from acute cardiac issues + R knee pain + HCTZ use Serum Na improved to 132 Hypotonic, serum osm low BUN wnl, serum uric acid wnl - SIADH or SLN unlikely Low urine Na, high urine K, +mild secondary hyperaldo state. No need to add gabriella. Dc HCTZ. Avoid thiazides permanently. Replete K prn to keep serum K at 4.0 or higher Avoid hypoMg Advised on adeq po solid food intake for prompt hyponatremia correction Received Tolvaptan x 2 doses Avoid NaCl tabs or Na-containing IV fluid d/t high BNP [place] po fluid intake Monitor serum Na q12h # HypoMg MgCl po bid x 4 doses Monitor # Chest/epigastric pain Resolved TTE in 02/2018 showed normal LVEF 66% Chest CT on 02/17/22 showed no pulmo embolism; no pulmo Htn; +small to mod bilat pleural effusion; +interstitial infiltrates BNP elevation likely 2/2 recent PNA, aggravated by accelerated Htn Avoid Na load po or IV as above Stress test on 02/21 # Osteoarthritis, multiple jt pains, hand jt pains, R knee pain S/p recent fall Per other services May give tylenol +/- tramadol prn Avoid other narcotics Cold pack prn PT/OT # Accelerated Htn BP better controlled Cont Carvedilol + Losartan Avoid Thiazide as above Add CCB if needing a 3rd BP med. Hydralazine IV prn for SBP > 160 mmHg # Dispo Anticipate dc tomorrow if stress test neg Physician Review: Patient Assessed, Agree with Above Assessment and Plan
[2022-02-20] MEDS: ASPIRIN EC 81 MG TAB PO SCH (08:35)
[2022-02-20] MEDS: LOSARTAN POTASSIUM 50 MG TABLET PO SCH (08:35)
[2022-02-20] MEDS: AZITHROMYCIN 250 MG TAB PO SCH (08:36)
[2022-02-20] MEDS: FUROSEMIDE 40 MG/4 ML VIAL IV SCH (08:36)
[2022-02-20] MEDS: PANTOPRAZOLE 40MG TABLET PO SCH (08:36)
[2022-02-20] MEDS ORDERED: POTASSIUM CL SA 10 MEQ TAB PO ONE (11:00)
--- NOTE | 2022-02-20 12:15 | P.PN ---
Subjective Date of Service: 02/20/22 Primary Care Provider: Grzegorz Chief Complaint: Chest pain Subjective: No new changes Review of Systems 10-point ROS is otherwise unremarkable Physical Examination - Vital Signs Temperature: 97.9 F Blood Pressure: 149/63 Pulse: 52 Respirations: 15 Pulse Ox (%): 98 - Physical Exam General: Alert, In no apparent distress HEENT: Atraumatic, PERRLA, EOMI Neck: Supple, JVD not distended Respiratory: Clear to auscultation bilaterally, Normal air movement Cardiovascular: Regular rate/rhythm, Normal S1 S2 Gastrointestinal: Normal bowel sounds, No tenderness Musculoskeletal: No tenderness Integumentary: No rashes Neurological: Normal speech, Normal tone, Normal affect Lymphatics: No axilla or inguinal lymphadenopathy Assessment And Plan - Current Problems (Diagnosis) (1) NSTEMI (non-ST elevated myocardial infarction) Current Visit: Yes Status: Acute Plan: may be a troponin leak. have in a consult to cardiology. Will get routine labs, an echocardiogram and follow her troponins 4.3 stress test on Monday discussed npo after midnight (2) HTN (hypertension) Current Visit: No Status: Acute Plan: restart her losartan and hctz. Hold the hydralazine as the patient has hyponatremia. Qualifiers: Hypertension type: primary hypertension (3) Pneumonia Current Visit: No Status: Acute Plan: continue the zithromax from previous admission. It is most likely strep pneumonia. Qualifiers: (4) Hyponatremia Current Visit: Yes Status: Resolved Plan: possible due to diuretics. Will hold the hctz. Consider a dose of lasix. May start her on sfluids in the morning. Her creatine is doing well. 4.2 stop the lasix Will continue monitoring the sodium (5) AV block, 2nd degree Current Visit: Yes Status: Acute Plan: She reports no symptoms. Will lower the betablocker. Will discuss with cardiology. Physician Review: Patient Assessed, Agree with Above Assessment and Plan
[2022-02-21] MEDS: ENOXAPARIN 80 MG/0.8 ML SQ SCH ×2 (03:18→15:45)
[2022-02-21 04:17] LABS: Absolute Lymphocytes (CBC) 1.3 K/uL (0.7-4.9); Hematocrit 30.5 % (36.0-45.0); Lymphocytes % 28.3 % (15.3-44.8); MPV 7.4 fL (7.6-11.3); RBC Red Blood Cell Count 3.75 M/uL (3.86-4.86)
[2022-02-21 04:29] LABS: Magnesium 1.9 mg/dL (1.8-2.4); Phosphorus 3.2 mg/dL (2.5-4.9)
[2022-02-21 04:31] LABS: Bilirubin Total 0.6 mg/dL (0.2-1.0); Potassium 3.8 mmol/L (3.5-5.1); Protein, Total 6.1 g/dL (6.4-8.2)
[2022-02-21] MEDS: carvediloL 3.125 MG TAB PO SCH ×2 (06:00→17:40)
--- NOTE | 2022-02-21 07:10 | ECHO ---
HEIGHT: 5 ft 5 in WEIGHT: 159 lb 0 oz DATE OF STUDY: 02/18/[address]: Delvis Johnson PAC 2-DIMENSIONAL: YES M.MODE: YES DOPPLER: YES COLOR FLOW: YES TDS: NO PORTABLE: NO DEFINITY: NO BUBBLE STUDY: NO DIAGNOSIS: ELEVATED BNP CARDIAC HISTORY: CATHERIZATION: NO SURGERY: NO PROSTHETIC VALVE: NO PACEMAKER: NO MEASUREMENTS (cm) DIASTOLIC (NORMALS) SYSTOLIC (NORMALS) IVSd 1.1 (0.6-1.2) LA Diam 2.9 (1.9-4.0) LVEF 54% LVIDd 3.6 (3.5-5.7) LVIDs 2.6 (2.0-3.5) %FS 27% LVPWd 1.2 (0.6-1.2) Ao Diam 2.6 (2.0-3.7) 2 DIMENSIONAL ASSESSMENT: RIGHT ATRIUM: NORMAL LEFT ATRIUM: NORMAL RIGHT VENTRICLE: NORMAL LEFT VENTRICLE: NORMAL TRICUSPID VALVE: MITRAL VALVE: PULMONIC VALVE: NORMAL AORTIC VALVE: NORMAL PERICARDIAL EFFUSION: SMALL AORTIC ROOT: NORMAL LEFT VENTRICULAR WALL MOTION: WALL MOTION ABNORMALITY, SECONDARY CONDITION ABNORMALITY. DOPPLER/COLOR FLOW: MILD TRICUSPID REGURGITATION. MODERATE MITRAL REGURGITATION. COMMENTS: NORMAL LEFT VENTRICULAR EJECTION FRACTION 55-60%. WALL MOTION ABNORMALITY SECONDARY COMDUCTION ABNORMALITY. MODERATE MITRAL REGURGITATION. MILD TRICUSPID REGURGITATION. TECHNOLOGIST: Andressa NOBLE
[2022-02-21] MEDS: PANTOPRAZOLE 40MG TABLET PO SCH (07:30)
[2022-02-21] MEDS ORDERED: REGADENOSON 0.4 MG/5 ML SYR IV ONE (07:58)
[2022-02-21] MEDS: LOSARTAN POTASSIUM 50 MG TABLET PO SCH (08:00)
[2022-02-21] MEDS: FUROSEMIDE 40 MG/4 ML VIAL IV SCH (09:00)
[2022-02-21] MEDS: AZITHROMYCIN 250 MG TAB PO SCH (09:00)
[2022-02-21] MEDS: ASPIRIN EC 81 MG TAB PO SCH (09:00)
--- NOTE | 2022-02-21 09:00 | P.PN ---
Subjective Date of Service: 02/21/22 Primary Care Provider: Grzegorz Chief Complaint: Chest pain Subjective: No new changes Review of Systems 10-point ROS is otherwise unremarkable Physical Examination - Vital Signs Temperature: 97.2 F Blood Pressure: 135/56 Pulse: 67 Respirations: 16 Pulse Ox (%): 96 - Physical Exam General: Alert, In no apparent distress HEENT: Atraumatic, PERRLA, EOMI Neck: Supple, JVD not distended Respiratory: Clear to auscultation bilaterally, Normal air movement Cardiovascular: Regular rate/rhythm, Normal S1 S2 Gastrointestinal: Normal bowel sounds, No tenderness Musculoskeletal: No tenderness Integumentary: No rashes Neurological: Normal speech, Normal tone, Normal affect Lymphatics: No axilla or inguinal lymphadenopathy Assessment And Plan - Current Problems (Diagnosis) (1) NSTEMI (non-ST elevated myocardial infarction) Current Visit: Yes Status: Acute Plan: may be a troponin leak. have in a consult to cardiology. Will get routine labs, an echocardiogram and follow her troponins 4.3 stress test on Monday discussed npo after midnight (2) HTN (hypertension) Current Visit: No Status: Acute Plan: restart her losartan and hctz. Hold the hydralazine as the patient has hyponatremia. Qualifiers: Hypertension type: primary hypertension (3) Pneumonia Current Visit: No Status: Acute Plan: continue the zithromax from previous admission. It is most likely strep pneumonia. Qualifiers: (4) Hyponatremia Current Visit: Yes Status: Resolved Plan: possible due to diuretics. Will hold the hctz. Consider a dose of lasix. May start her on sfluids in the morning. Her creatine is doing well. 4.2 stop the lasix Will continue monitoring the sodium (5) AV block, 2nd degree Current Visit: Yes Status: Acute Plan: She reports no symptoms. Will lower the betablocker. Will discuss with cardiology. Discharge Plan: Home Plan to discharge in: 24 Hours - Code Status/Comfort Care Code Status Assessed: No Physician Review: Patient Assessed, Agree with Above Assessment and Plan Critical Care: No Time Spent Managing PTS Care (In Minutes): 20
--- NOTE | 2022-02-21 10:32 | RAD REPORT ---
EXAM DESCRIPTION: NM - Rest Stress Cardiac Imaging - 02/21/2022 10:05 am CLINICAL HISTORY: ELEVATED TROP Chest pain. COMPARISON: No comparisons TECHNIQUE: The patient was administered approximately 10mCi of Tc 99m Sestamibi prior to resting SPE CT imaging of the heart. The patient was then administered approximately 30 mCi of Tc 99m Sestamibi f ollowing exercise or pharmacologic stress. Multiplanar SPECT images were reviewed. FINDINGS: Moderate sized area of stress-induced ischemia is seen involving the left ventricular apex . No fixed defect is seen to suggest hibernating myocardium or scarred myocardium. The end diastolic volume is 90 ml, the end systolic volume is 37 ml, and the ejection fraction is 59 %. IMPRESSION: Moderate sized area of stress-induced ischemia involving the LV apex.
--- NOTE | 2022-02-21 11:22 | EKG ---
Test Date: 2022-02-18 Test Time: 08:25:27 Properties Supervisor: TREY MEASUREMENT RESULTS: Intervals: Rate: 62 WI: 182 QRSD: 136 QT: 492 QTc: 499 [place]: P: 79 WI: 182 QRS: 20 T: 148 INTERPRETIVE STATEMENTS: Sinus rhythm with marked sinus arrhythmia Left bundle branch block Abnormal ECG Compared to ECG 02/17/2022 12:16:12 No significant changes Electronically Signed On 02-21-22 11:13:41 CDT by Carrillo Coley
--- NOTE | 2022-02-21 11:55 | TREADPHA ---
DX: ELEVATED TROPONIN Date of Study: 02/21/2022 Ht: 5' 5 " Wt: 159 lb 0 oz Consulting Physician: BO MEDICATIONS: ASPIRIN, COREG, LOVENOX, COZAAR, APRESOLINE HISTORY: 86 YEAR OLD WITH HYPERTENSION, CHEST PAIN, POSTIVE EKG PHYSICIAL EXAMINATION: RESTING B.P.: 179/92 RESTING H.R.: 90 RESTING EKG: LEFT BUNDLE BRANCH BLOCK, SINUS RHYTHM. PROTOCOL: LEXISCAN EXERCISE TIME: 3:30 B.P. AT [place] STRESS: 143/79 IMPRESSION: LEXISCAN INJECTED. CARDIOLITE INJECTED ( SEE NUCLEAR MEDICINE REPORT). PREMATURE VENTRICULAR COMPLEXES NOTED THROUGHOUT EXAM. NO COMPLAINTS OF CHEST PAIN OR SHORTNESS OF BREATH. NO SUPRA VENTRICULAR TACHYCARDIA/ VENTRICULAR TACHYCARDIA.
--- NOTE | 2022-02-22 02:47 | PN ---
Date of Progress Note: 02/21/2022 Chief Complaint: Hyponatremia. Subjective: The patient was found to be in hyponatremia secondary to high which was due t o cardiac issue of acute nature and related to right knee pain. The patient also was using HCTZ, whi ch was aggravating hyponatremia. Sodium level has gradually improved to 132 and has been stable. Review of Systems: The patient denies any changes. Objective: Lungs: Clear to auscultation bilaterally. Heart: S1, S2. Abdomen: Soft. Benign. Extremities: No edema. Impression And Plan: Hyponatremia, hyposmolar. The patient was found to have hyponatremia secondary to multiple causes, likely HCTZ was major cause of ongoing hyponatremia. The patient cannot take th iazide, which was causing hyponatremia. HCTZ was stopped. The patient also had episode of hypokalem ia, which was contributory to hyponatremia. The patient will avoid diuretic with effect of hypokalem ic situation and she will avoid hypomagnesemia. The patient received tolvaptan for hyponatremia loyda tment. Currently, the patient is stable. Continue to monitor. EB/MODL Voice ID: [id number] Report ID: [id number]
[2022-02-22] MEDS: ENOXAPARIN 80 MG/0.8 ML SQ SCH (04:08)
[2022-02-22] MEDS: carvediloL 3.125 MG TAB PO SCH (05:28)
[2022-02-22 06:44] LABS: Albumin 3.1 g/dL (3.4-5.0); Bilirubin Total 0.7 mg/dL (0.2-1.0); Potassium 4.1 mmol/L (3.5-5.1); Protein, Total 6.1 g/dL (6.4-8.2)
--- NOTE | 2022-02-22 08:10 | P.DS ---
Admission Date: 02/17/22 Discharge Date: 02/22/22 Primary Care Provider: Grzegorz Reason for Admission: Chest pain - Problems (1) NSTEMI (non-ST elevated myocardial infarction) Current Visit: Yes Status: Acute (2) HTN (hypertension) Current Visit: No Status: Acute Qualifiers: Hypertension type: primary hypertension (3) Pneumonia Current Visit: No Status: Acute Qualifiers: (4) Hyponatremia Current Visit: Yes Status: Resolved (5) AV block, 2nd degree Current Visit: Yes Status: Acute Brief History of Present Illness: Patient with a history of htn and arthritis. She was admitted earlier this week with a pneumonia and uti. The patient was sent home just yesterday. This morning she started having moderate substernal chest pressure. She also complained of elevated bloop pressure. SBP approx 200. The patients brought her to the ER. her sodium was low. However yesterday it was 129 as opposed to 125 today. However she did have an elevation of her troponins. Hospital Course: Patient presented with abdominal pain. Had a elevated troponin. Unfortunately she suffered bradycardia with the beta blockers. She had a stress test. Needed to be kept over the weekend for the test. Had a fixed apical deficit. No interventions planned. No mortality benefit for a patient in her 80's. will discharge her home and have her follow up with her care. Her son would like to be called as the parents are elderly and forget what happened in the office visit. This was agreeable to the parents. Thank you for allowing me to take part in the patients care. Vital Signs/Physical Exam: Temp Pulse Resp BP Pulse Ox 97 F 86 18 142/59 H 96 02/22/22 04:00 02/22/22 05:28 02/22/22 04:00 02/22/22 05:28 02/22/22 04:00 General: Alert, In no apparent distress HEENT: Atraumatic, PERRLA, EOMI Neck: Supple, JVD not distended Respiratory: Clear to auscultation bilaterally, Normal air movement Cardiovascular: Regular rate/rhythm, Normal S1 S2 Gastrointestinal: Normal bowel sounds, No tenderness Musculoskeletal: No tenderness Integumentary: No rashes Neurological: Normal speech, Normal tone, Normal affect Lymphatics: No axilla or inguinal lymphadenopathy Laboratory Data at Discharge: WBC 4.5 K/uL (4.3-10.9) D 04/04/22 03:58 Hgb 10.4 g/dL (12.0-15.0) L 02/21/22 03:58 Hct 30.5 % (36.0-45.0) L 02/21/22 03:58 Plt Count 258 K/uL (152-406) 02/21/22 03:58 PT 11.5 SECONDS (9.5-12.5) 02/17/22 12:49 INR 1.04 02/17/22 12:49 Sodium 137 mmol/L (136-145) 02/22/22 06:14 Potassium 4.1 mmol/L (3.5-5.1) 02/22/22 06:14 BUN 22 mg/dL (7-18) H 02/22/22 06:14 Creatinine 0.77 mg/dL (0.55-1.3) 02/22/22 06:14 Glucose 112 mg/dL (74-106) H 02/22/22 06:14 Uric Acid 4.6 mg/dL (2.6-6.0) 02/17/22 14:45 Phosphorus 3.2 mg/dL (2.5-4.9) 02/21/22 03:58 Magnesium 1.9 mg/dL (1.8-2.4) 02/21/22 03:58 Total Bilirubin 0.7 mg/dL (0.2-1.0) 02/22/22 06:14 AST 39 U/L (15-37) H 02/22/22 06:14 ALT 34 U/L (12-78) 02/22/22 06:14 Alkaline Phosphatase 39 U/L (45-117) L 02/22/22 06:14 Triglycerides 72 mg/dL (<150) 02/18/22 05:01 Cholesterol 158 mg/dL (<200) 02/18/22 05:01 HDL Cholesterol 73 mg/dL (40-60) H 02/18/22 05:01 Cholesterol/HDL Ratio 2.16 02/18/22 05:01 Lipase 131 U/L (73-393) 02/17/22 12:49 Home Medications: Losartan Potassium [Cozaar] 100 mg PO DAILY WITH BREAKFAST 09/16/16 Omeprazole 20 mg PO DAILY 09/16/16 hydroCHLOROthiazide [Hydrodiuril] 12.5 mg PO DAILY 09/16/16 Carvedilol [Coreg] 12.5 mg PO BID 02/14/22 Anastrozole [Arimidex*] 1 mg PO BEDTIME 02/15/22 Albuterol Inhaler [Ventolin Inhaler*] 2 puff IH Q6H PRN 30 Days #30 hfa.aer.ad 02/16/22 Azithromycin [Zithromax] 500 mg PO DAILY 5 Days #5 tablet 02/16/22 Diet: Regular Activity: Ad tegan Followup: Shiva Lantigua MD [Primary Care Provider] - 1-2 Weeks Physician Review: Patient Assessed, Agree with Above Assessment and Plan Time spent managing pt's care (in minutes): 30
[2022-02-22 08:22] VITALS: BP 182/77; TEMP 97.3
== END 2022-02-22 08:40 | disposition home health service (06) | DRG 280 ==
LOC: ER 11:41 → ERHOLD 16:45 → 2ND 20:17
PROVIDERS: ADMIT Internal Medicine; ATTEND Internal Medicine
DX: I21.4 Non-ST elevation (NSTEMI) myocardial infarction (principal); J18.9 Pneumonia, unspecified organism; E87.1 Hypo-osmolality and hyponatremia; I10 Essential (primary) hypertension; I44.1 Atrioventricular block, second degree; E87.6 Hypokalemia; M25.561 Pain in right knee; E83.42 Hypomagnesemia; R00.1 Bradycardia, unspecified; M19.90 Unspecified osteoarthritis, unspecified site; Z88.0 Allergy status to penicillin; Z20.822 Contact with and (suspected) exposure to COVID-19
CPT/HCPCS: 36415; 70450; 71045; 71275; 74177; 78452; 80048; 80053; 80061; 80069; 80076; 81003; 81015; 82040; 82565; 83690; 83735; 83880; 83930; 83935; 84100; 84132; 84295; 84300; 84484; 84550; 85025; 85610; 93005; 93017; 93306; 94640; 96372; 96374; 96375; 99285; A9500; J0360; J1940; J2270; J2785; J8499; Q9967; U0003

== ENCOUNTER 2022-05-10 03:49 | Inpatient (IN) | payer MEDICARE, OTHER ==
--- OUTSIDE RECORDS SUMMARY | 2022-05-10 03:52 | XMS REPORT | Continuity of Care Document ---
:1935 Author Organization [facility] t Address [address] [place] [address] Care Team Providers Name Role Phone Gurvinder_Patricia Attending Clinician Unavailable Love-Mbayo_A_AH Attending Clinician Unavailable Mary Hollins Attending Clinician [phone] Prudence Gaston Admitting Clinician Unavailable Gurvinder_Patricia Admitting Clinician Unavailable Love-Mbayo_A_AH Admitting Clinician Unavailable Payers Payer Name Policy Type Policy Number Effective Date Expiration Date S [facility] [id number] 2021 (MEDICARE 00:00:00 REPLACEMENT HMO) [facility] - [id number] 2019 [facility] (MEDICARE 00:00:00 REPLACEMENT/[place] GE - HMO) Problems Condition Condition Condition Status Onset Resolution Last Treating Co mments Source Name Details Category Date Date Treatment Clinician Date Primary 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 Clinician (SIG) Name Name Tramadol Tramadol Yes Jose Alberto 1 tablet Common HCl HCl 6-30 [facility] 00:00: - [facility] anastrozole anastrozole No 1 Q1D anastrozol [place] 1 mg tablet 1 mg tablet e 1 mg Family Take 1 Take 1 tablet Practic tablet tablet Take 1 e every day every day tablet by oral by oral every day route. route. by oral route. hydrochloro hydrochloro No 1 Q1D hydrochlor [facility] thiazide thiazide othiazide Fa fredrick 12.5 mg 12.5 mg 12.5 mg Practi c tablet Take tablet Take tablet e 1 tablet 1 tablet Take 1 every day every day tablet by oral by oral every day route. route. by oral route. omeprazole omeprazole No 1 Q1D omeprazole [facility] 20 mg 20 mg 20 mg Family delayed delayed delayed Practi c release,dis release,dis release,di e integrating integrating sintegrati tablet Take tablet Take ng tablet 1 tablet 1 tablet Take 1 every day every day tablet by oral by oral every day route route by oral before before route meals. meals. before meals. Hydrochloro Hydrochloro Yes Jose Alberto not Common thiazide thiazide Ring defined [facility] Anastrozole Anastrozole Yes Jose Alberto not Common Ring defined [facility] Omeprazole Omeprazole Yes Jose Alberto not Common Ring defined [facility] Losartan Losartan Yes Jose Alberto not Comm on Potassium Potassium [facility] Procedures This patient has no known procedures. Encounters Start End Encounter Admission Attending Care Care Encounter Source Date/Time Date/Time Type Type Clinicians Facility Department ID 2022-02-08 Outpatient [facility] [id number] Common 16:02:01 [facility] 2021-12-15 Outpatient [facility] [id number] Common 12:01:20 [id number] [facility] 2021-12-15 Outpatient [facility] [id number] Common 11:54:02 [id number] [facility] 2021-11-11 2021-11-11 Outpatient Canales_M [facility] [id number] Devoted 10:30:00 10:30:00 [facility] 2021-05-17 2021-05-17 Outpatient Love-Mbayo VFP VFP 795 [facility] 02:54:00 02:54:00 _A_AH [id number] [facility] Pract[facility] e 2021-02-22 2021-02-22 Outpatient Canales_M [facility] DM [id number] [facility] 11:38:00 11:38:00 0405 [facility] 2021-02-22 2021-02-22 Outpatient Hollins, [facility] [id number] 00:00:00 00:00:00 Iliana [id number] Mary [id number] 2021-02-19 2021-02-19 Outpatient Canales_M [facility] [id number] Devoted 11:15:00 11:15:00 0402 [facility] 2020-10-06 2020-10-06 Outpatient STLMLC STLMLC [id number] Common 00:00:00 00:00:00 [facility] 2020-09-29 2020-09-29 Outpatient STLMLC STLMLC [id number] Common 00:00:00 00:00:00 [facility] 2020-09-22 2020-09-22 Outpatient STLMLC STLMLC [id number] Common 00:00:00 00:00:00 [facility] 2020-09-10 2020-09-10 Outpatient STLMLC STLMLC [id number] Common 00:00:00 00:00:00 [facility] 2020-05-19 2020-05-19 [facility] [id number] Common 08:30:00 08:30:00 [facility] 2020-04-30 2020-04-30 Outpatient Love-Mbayo VFP VFP [id number] [facility] 11:59:00 11:59:00 _A_AH [id number] Family Practic e 2020-04-20 2020-04-20 Outpatient Cachorro [facility] [address] [place] [address] 06:26:00 06:26:00 _A_AH [id number] Family Practic e 2020-03-30 2020-03-30 Outpatient Cachorro [facility] [address] [place] [address] 02:45:00 02:45:00 _A_AH [id number] Family Practic e 2020-02-24 2020-02-24 [facility] [id number] Common 14:30:00 14:30:00 t [facility] 2020-02-18 2020-02-18 Rachel [facility] [place] - [id number] V illage 00:00:00 00:00:00 Jorge [facility] Fam ryan munguia PHERESIS SPECIALIST: Medical - Practi c [address] [email or web address]_V@_ e [facility], [address] [address], [place] [address] , Ph. 2020-01-29 2020-01-29 [facility] [id number] Common 14:19:00 14:19:00 t [facility] 2020-01-28 2020-01-28 [facility] [id number] Common 10:45:00 10:45:00 t [facility] Bone [facility] - [facility] 2020-01-08 2020-01-08 Outpatient Cachorro [facility] [address] [place] [address] 07:20:00 07:20:00 _A_AH [id number] Family Practic e 2019-06-12 2019-06-12 Out[facility] [id number] Common 11:07:00 11:07:00 t [facility] Sp[facility] 2019-06-06 2019-06-06 [facility] [id number] Common 10:00:00 10:00:00 t [facility] Bone [facility] Sp[facility] 2019-05-20 2019-05-20 Outpatient Lynne [facility] [id number] Common 09:30:00 09:30:00 t [facility] Bone [facility] Spiri t and Joint [facility] Results This patient has no known results.
[2022-05-10 04:30] LABS: Hematocrit 25.3 % (36.0-45.0); MCV 73.7 fL (80-100); MPV 6.7 fL (7.6-11.3); RBC Red Blood Cell Count 3.43 M/uL (3.86-4.86)
[2022-05-10 04:47] LABS: Potassium 4.1 mmol/L (3.5-5.1)
[2022-05-10 04:52] LABS: Troponin High Sensitivity 184.8 pg/mL (<58.9)
--- NOTE | 2022-05-10 05:48 | ER ---
Nurse's Notes [facility] Name: Kelly Phillips Age: 87 yrs Sex: Female : 1935 Arrival Date: 05/10/2022 Time: 03:51 Bed 6 Private MD: Diagnosis: Shortness of breath;Subsequent non-ST elevation (NSTEMI) myocardial infarction Presentation: 05/10 03:56 Chief complaint: Patient's son or daughter states: pt is Pakistani speaking. daughter as6 report pt has had increased SOB for several months, over the last few days it has gotten worse, denies CP EMS states: called out for SOB. Coronavirus screen: At this time, the client does not indicate any symptoms associated with coronavirus-19. Ebola Screen: No symptoms or risks identified at this time. Initial Sepsis Screen: Does the patient meet any 2 criteria? No. Patient's initial sepsis screen is negative. Does the patient have a suspected source of infection? No. Patient's initial sepsis screen is negative. Risk Assessment: Do you want to hurt yourself or someone else? Patient reports no desire to harm self or others. Onset of symptoms is unknown. Care prior to arrival: IV initiated. 20 GA, in the left antecubital area. 03:56 Method Of Arrival: EMS: [facility] as6 03:56 Acuity: JASMINA 3 as6 Historical: - Allergies: 03:59 PENICILLINS; as6 - Home Meds: 03:59 anastrozole 1 mg Oral tab 1 tab once daily [Active]; losartan 100 mg Oral tab 1 tab as6 nightly [Active]; omeprazole 20 mg Oral cpDR 1 cap once daily [Active]; - PMHx: 03:59 GERD; Hypertensive disorder; as6 - PSHx: 03:59 Appendectomy; tumor removal RT breast; as6 - Immunization history:: Client reports receiving the 2nd dose of the Covid vaccine. - Social history:: Smoking status: Patient denies any tobacco usage or history of. Screenin:36 Abuse screen: Denies threats or abuse. Denies injuries from another. Nutritional as6 screening: No deficits noted. Tuberculosis screening: No symptoms or risk factors identified. Fall Risk None identified. Assessment: 04:00 General: Appears in no apparent distress. Behavior is calm, cooperative. Pain: Denies as6 pain. Neuro: Cortes Agitation-Sedation Scale (RASS): 0 - Alert and Calm Level of Consciousness is awake, alert, obeys commands, Oriented to person, place, time, situation. Cardiovascular: Reports shortness of breath, Denies chest pain. Respiratory: Reports shortness of breath on exertion Respiratory effort is even, unlabored. 05:38 Reassessment: Patient appears in no apparent distress at this time. as6 07:30 Reassessment: Dr. Phelan at bedside discussing results and POC, VO to give 2.5 mg jl7 Xopenex. Pt medicated as ordered. Vital Signs: 03:56 BP 176 / 76; Pulse 104; Resp 18 S; Temp 97.6(O); Pulse Ox 98% on R/A; Weight 74.84 kg as6 (R); Height 5 ft. 2 in. (157.48 cm) (R); Pain 0/10; 05:37 BP 180 / 90; Pulse 100; Resp 15 S; Pulse Ox 100% on R/A; as6 07:30 BP 184 / 82; Pulse 105; Resp 20; Pulse Ox 100% ; jl7 08:07 BP 172 / 84; Pulse 105; Resp 15; Pulse Ox 99% ; jl7 03:56 Body Mass Index 30.18 (74.84 kg, 157.48 cm) as6 ED Course: 03:51 Patient arrived in ED. mw2 03:51 Néstor Phelan MD is Attending Physician. kdr 03:59 Triage completed. as6 04:02 Arm band placed on. as6 04:50 Garland Rubi, REINA is Primary Nurse. as6 04:52 Notified ED physician of a critical lab result(s). troponin 184.8 Dr Phelan notified. bb 04:58 XRAY Chest (1 view) In Process Unspecified. EDMS 05:15 CT Abd/Pelvis - IV Contrast Only In Process Unspecified. EDMS 05:36 Bed in low position. Call light in reach. Side rails up X2. Adult w/ patient. Client as6 placed on continuous cardiac and pulse oximetry monitoring. NIBP monitoring applied. Warm blanket given. 05:46 Shiva Lantigua MD is Hospitalizing Provider. kdr 07:15 Maintain EMS IV. Dressing intact. Good blood return noted. Site clean \T\ dry. Gauge \T\ jl 7 site: 20 left AC. 07:32 Primary Nurse role handed off by Garland Rubi, REINA jl7 07:32 John Dempsey RN is Primary Nurse. jl7 08:08 No provider procedures requiring assistance completed. jl7 09:09 Patient admitted, IV remains in place. intact, No redness/swelling at site. jl7 Administered Medications: 07:30 Drug: Xopenex (levalbuterol) 2.5 mg Route: Inhalation; jl7 08:08 Follow up: Response: No adverse reaction jl7 Medication: 08:08 VIS not applicable for this client. jl7 Outcome: 05:47 Decision to Hospitalize by Provider. kdr 09:09 Admitted to Tele accompanied by tech, family with patient, via wheelchair, room 409, jl with chart, Report called to REINA Delong 09:09 Condition: stable 09:09 Discharge instructions given to patient, family, Instructed on the need for admit, Demonstrated understanding of instructions. 09:10 Patient left the ED. jl7 Signatures: Dispatcher [employer] EDMS Néstor Phelan MD MD kdr Ballard, Brenda, RN RN bb John Dempsey RN RN jl7 Jg Sabillon 2 Garland Rubi, REINA RN as6 Corrections: (The following items were deleted from the chart) 08:16 07:15 Maintain EMS IV. Dressing intact. Good blood return noted. Site clean \T\ dry. jl7 Gauge \T\ site: 20 right AC. jl7
--- NOTE | 2022-05-10 05:48 | EDPHYS ---
Physician Documentation [facility] Name: Kelly Phillips Age: 87 yrs Sex: Female : 1935 Arrival Date: 05/10/2022 Time: 03:51 Bed 6 Private MD: ED Physician Néstor Phelan HPI: 05/10 06:17 This 87 yrs old Female presents to ER via EMS with complaints of SOB. kdr 06:17 The patient has shortness of breath at rest, with light activity. Onset: The kdr symptoms/episode began/occurred gradually, 2 month(s) ago. Duration: The symptoms are intermittent, with no pattern. The patient's shortness of breath is aggravated by exertion, light activity. Associated signs and symptoms: The patient has no apparent associated signs or symptoms. Severity of symptoms: At their worst the symptoms were mild in the emergency department the symptoms are unchanged. The patient has experienced similar episodes in the past, chronically. The patient has not recently seen a physician. Patient was brought to the ED by EMS. Patient had been short of breath over the last few months. Several days the shortness of breath has gotten worse. Patient apparently has not had chest pain. Patient is Turkish-speaking only and translation was provided by the daughter who is at the bedside. Historical: - Allergies: 03:59 PENICILLINS; as6 - Home Meds: 03:59 anastrozole 1 mg Oral tab 1 tab once daily [Active]; losartan 100 mg Oral tab 1 tab as6 nightly [Active]; omeprazole 20 mg Oral cpDR 1 cap once daily [Active]; - PMHx: 03:59 GERD; Hypertensive disorder; as6 - PSHx: 03:59 Appendectomy; tumor removal RT breast; as6 - Immunization history:: Client reports receiving the 2nd dose of the Covid vaccine. - Social history:: Smoking status: Patient denies any tobacco usage or history of. ROS: 06:17 Constitutional: Negative for fever, chills, and weight loss, Eyes: Negative for injury, kdr pain, redness, and discharge, ENT: Negative for injury, pain, and discharge, Neck: Negative for injury, pain, and swelling, Cardiovascular: Negative for chest pain, palpitations, and edema, Abdomen/GI: Negative for abdominal pain, nausea, vomiting, diarrhea, and constipation, Back: Negative for injury and pain, : Negative for injury, bleeding, discharge, and swelling, MS/Extremity: Negative for injury and deformity, Skin: Negative for injury, rash, and discoloration, Neuro: Negative for headache, weakness, numbness, tingling, and seizure activity. Psych: Negative for depression, anxiety, suicide ideation, homicidal ideation, and hallucinations, Allergy/Immunology: Negative for hives, rash, and allergies, Endocrine: Negative for neck swelling, polydipsia, polyuria, polyphagia, and marked weight changes, Hematologic/Lymphatic: Negative for swollen nodes, abnormal bleeding, and unusual bruising. 06:17 Respiratory: Positive for shortness of breath, Negative for cough, dyspnea on exertion, hemoptysis, orthopnea, pleurisy, sputum production, wheezing. Exam: 06:17 Constitutional: This is a well developed, well nourished patient who is awake, alert, kdr and in no acute distress. Head/Face: Normocephalic, atraumatic. Eyes: Pupils equal round and reactive to light, extra-ocular motions intact. Lids and lashes normal. Conjunctiva and sclera are non-icteric and not injected. Cornea within normal limits. Periorbital areas with no swelling, redness, or edema. Neck: Trachea midline, no thyromegaly or masses palpated, and no cervical lymphadenopathy. Supple, full range of motion without nuchal rigidity, or vertebral point tenderness. No Meningismus. Chest/axilla: Normal chest wall appearance and motion. Nontender with no deformity. No lesions are appreciated. Cardiovascular: Regular rate and rhythm with a normal S1 and S2. No gallops, murmurs, or rubs. Normal PMI, no JVD. No pulse deficits. Respiratory: Lungs have equal breath sounds bilaterally, clear to auscultation and percussion. No rales, rhonchi or wheezes noted. No increased work of breathing, no retractions or nasal flaring. Abdomen/GI: Soft, non-tender, with normal bowel sounds. No distension or tympany. No guarding or rebound. No evidence of tenderness throughout. Back: No spinal tenderness. No costovertebral tenderness. Full range of motion. Skin: Warm, dry with normal turgor. Normal color with no rashes, no lesions, and no evidence of cellulitis. MS/ Extremity: Pulses equal, no cyanosis. Neurovascular intact. Full, normal range of motion. Neuro: Awake and alert, GCS 15, oriented to person, place, time, and situation. Cranial nerves II-XII grossly intact. Motor strength 5/5 in all extremities. Sensory grossly intact. Cerebellar exam normal. Normal gait. Psych: Awake, alert, with orientation to person, place and time. Behavior, mood, and affect are within normal limits. Vital Signs: 03:56 BP 176 / 76; Pulse 104; Resp 18 S; Temp 97.6(O); Pulse Ox 98% on R/A; Weight 74.84 kg as6 (R); Height 5 ft. 2 in. (157.48 cm) (R); Pain 0/10; 05:37 BP 180 / 90; Pulse 100; Resp 15 S; Pulse Ox 100% on R/A; as6 07:30 BP 184 / 82; Pulse 105; Resp 20; Pulse Ox 100% ; jl7 08:07 BP 172 / 84; Pulse 105; Resp 15; Pulse Ox 99% ; jl7 03:56 Body Mass Index 30.18 (74.84 kg, 157.48 cm) as6 MDM: 05:47 Patient medically screened. kdr 06:17 Data reviewed: vital signs, nurses notes, lab test result(s), radiologic studies. kdr Counseling: I had a detailed discussion with the patient and/or guardian regarding: the historical points, exam findings, and any diagnostic results supporting the discharge/admit diagnosis, lab results, radiology results, the need for further work-up and treatment in the hospital. 05/10 04:03 Order name: Basic Metabolic Panel; Complete Time: 07:12 as6 05/10 04:03 Order name: CBC with Diff; Complete Time: 07:12 as6 05/10 04:03 Order name: Troponin HS; Complete Time: 07:12 as6 05/10 06:02 Order name: COVID-19/FLU A+B (Document "Date of Onset" if Symptomatic) bb 05/10 06:27 Order name: NT PRO-BNP; Complete Time: 07:12 EDMS 05/10 06:27 Order name: Basic Metabolic Panel EDMS 05/10 04:03 Order name: XRAY Chest (1 view) as6 05/10 04:11 Order name: CT Abd/Pelvis - IV Contrast Only kdr 05/10 06:27 Order name: Basic Metabolic Panel EDMS 05/10 06:27 Order name: CBC with Automated Diff EDMS 05/10 06:27 Order name: CBC with Automated Diff EDMS 05/10 06:38 Order name: CREATININE WHOLE BLOOD; Complete Time: 07:12 EDMS 05/10 07:59 Order name: SARS-COV-2 RT PCR; Complete Time: 08:19 EDMS 05/10 04:03 Order name: EKG; Complete Time: 04:03 as6 05/10 04:03 Order name: Cardiac monitoring; Complete Time: 04:03 as6 05/10 04:03 Order name: EKG - Nurse/Tech; Complete Time: 04:03 as6 05/10 04:03 Order name: IV Saline Lock; Complete Time: 04:03 as6 05/10 04:03 Order name: Labs collected and sent; Complete Time: 04:14 as6 05/10 04:03 Order name: O2 Per Protocol; Complete Time: 04:03 as6 05/10 04:03 Order name: O2 Sat Monitoring; Complete Time: 04:03 as6 05/10 06:27 Order name: CONS Physician Consult EDMS 05/10 06:27 Order name: EKG Electrocardiogram EDMS 05/10 06:27 Order name: EKG Electrocardiogram EDMS 05/10 06:27 Order name: EKG Electrocardiogram EDMS 05/10 06:27 Order name: EKG Electrocardiogram EDMS Administered Medications: 07:30 Drug: Xopenex (levalbuterol) 2.5 mg Route: Inhalation; jl7 08:08 Follow up: Response: No adverse reaction jl7 Disposition Summary: 05/10/22 05:47 Hospitalization Ordered Hospitalization Status: Observation kdr Provider: Shiva Lantigua Location: Telemetry/MedSurg (observation) kdr Condition: Fair kdr Problem: new kdr Symptoms: are unchanged kdr Bed/Room Type: Standard kdr Room Assignment: 409(05/10/22 08:05) dw Diagnosis - Shortness of breath kdr - Subsequent non-ST elevation (NSTEMI) myocardial infarction kdr Forms: - Medication Reconciliation Form kdr - SBAR form kdr Signatures: Dispatcher [employer] EDVA Flora George RN RN dw Rittger, Kevin, MD MD kdr Leal, Jahala, RN RN jl7 Garland Rubi, RN RN as6 Ava Santiago, TREE TRIMMING SUPERVISOR TREE TRIMMING SUPERVISOR jh7 Corrections: (The following items were deleted from the chart) 08:05 05:47 kdr dw
[2022-05-10] MEDS ORDERED: ACETAMINOPHEN 500 MG TAB PO PRN (06:23)
[2022-05-10] MEDS ORDERED: ONDANSETRON 4 MG/2 ML VIAL IV PRN (06:23)
[2022-05-10] MEDS ORDERED: LEVALBUTEROL 1.25 MG/3 ML NEB ONE (07:31)
--- NOTE | 2022-05-10 08:21 | P.HP ---
Certification for Inpatient Patient admitted to: Inpatient With expected LOS: >2 Midnights Patient will require the following post-hospital care: None Practitioner: I am a practitioner with admitting privileges, knowledge of patient current condition, hospital course, and medical plan of care. Services: Services provided to patient in accordance with Admission requirements found in Title 42 Section 412.3 of the Code of Federal Regulations Patient History Date of Service: 05/10/22 Primary Care Provider: Memo Gaston Reason for admission: chf exacerbation History of Present Illness: Patient is a pleasant patient of Mrs Gaston [employer]. She suffers from dementia and chf. She was getting shorter of breath with walking. Some subster nal/epigastric pain. Non radiating to the arm. However her family brought her in. The patient was wheezing. Improved with a breathing treatment. She did not complaint of any leg swelling. She has a history of carotid stenosis. She has been refered to Dr. Card. Allergies Penicillins Allergy (Verified 09/16/16 10:49) Rash Home Medications: Losartan Potassium [Cozaar] 100 mg PO DAILY WITH BREAKFAST 09/16/16 Omeprazole 20 mg PO DAILY 09/16/16 hydroCHLOROthiazide [Hydrodiuril] 12.5 mg PO DAILY 09/16/16 Anastrozole [Arimidex*] 1 mg PO BEDTIME 02/15/22 Albuterol Inhaler [Ventolin Inhaler*] 2 puff IH Q6H PRN 30 Days #30 hfa.aer.ad 02/16/22 Azithromycin [Zithromax] 500 mg PO DAILY 5 Days #5 tablet 02/16/22 - Past Medical/Surgical History Diabetic: No -: GERD -: HTN -: Rt breast [place] with chemo -: right breast biopsy 50 years ago -: cyst removed from ovaries -: appy - Family History Mother -: Heart disease Father -: GI disease - Social History Alcohol use: Yes CD- Drugs: No Caffeine use: Yes Review of Systems Respiratory: SOB with Excertion Cardiovascular: Chest Pain Physical Examination - Physical Exam General: Alert, In no apparent distress HEENT: Atraumatic, PERRLA, Mucous membr. moist/pink, EOMI, Sclerae nonicteric Neck: Supple, 2+ carotid pulse no bruit, No LAD, Without JVD or thyroid abnormality Respiratory: Expiratory wheezes Cardiovascular: Regular rate/rhythm, Normal S1 S2 Gastrointestinal: Normal bowel sounds, No tenderness Musculoskeletal: No tenderness Integumentary: No rashes Neurological: Normal gait, Normal speech, Normal strength at 5/5 x4 extr, Normal tone, Normal affect Lymphatics: No axilla or inguinal lymphadenopathy - Studies Laboratory Data (last 24 hrs) 05/10/22 04:15: WBC 6.9, Hgb 8.3 L, Hct 25.3 L, Plt Count 345 05/10/22 04:15: Sodium 130 L, Potassium 4.1, BUN 16, Creatinine 0.76, Glucose 128 H Assessment and Plan - Problems (Diagnosis) (1) CHF exacerbation Current Visit: Yes Status: Acute Plan: will start her on diuretics. Will review her meds. She is a good candidate for E[employer]. There is a consult for Dr. Coley. (2) Dementia Current Visit: Yes Status: Chronic Plan: Mild symptoms. Her daughter is in the room. Who faciltated the visit. We can see if she needs any medication if there is any sundowning Qualifiers: Dementia type: Alzheimer's (3) Carotid stenosis Current Visit: Yes Status: Acute Plan: will work up as an outpatient Qualifiers: Laterality: unspecified laterality Qualified Code(s): I65.29 - Occlusion and stenosis of unspecified carotid artery (4) HTN (hypertension) Current Visit: No Status: Chronic Plan: will consider tanner/arb. She also needs some betablocker. She is tachycardic in the ER. Was in the 110's at home. Qualifiers: Discharge Plan: Home Plan to discharge in: 48 Hours - Advance Directives Does patient have a Living Will: No Does patient have a Durable POA for Healthcare: No - Code Status/Comfort Care Code Status Assessed: Yes Code Status: Full Code Critical Care: No Time Spent Managing Pts Care (In Minutes): 50
[2022-05-10] MEDS ORDERED: HOME MED 1 EA UNK (Omeprazole [Omeprazole] 20 MG Tablet.Dr) PO SCH (09:36)
[2022-05-10] MEDS: PANTOPRAZOLE 40MG TABLET PO SCH (11:02)
[2022-05-10] MEDS: ASPIRIN EC 81 MG TAB PO SCH (11:02)
[2022-05-10] MEDS: FUROSEMIDE 40 MG/4 ML VIAL IV SCH (11:03)
[2022-05-10] MEDS: LEVALBUTEROL 0.63 MG/3 ML NEB NEB PRN ×2 (11:30→21:05)
[2022-05-10] MEDS ORDERED: PNEUMOCOCCAL VACCINE 0.5 ML IMVAC ONE (14:00)
--- NOTE | 2022-05-10 14:03 | RAD REPORT ---
EXAM DESCRIPTION: RAD - Chest Single View - 05/10/2022 4:56 am COMPARISON: Chest radiograph February 13, 2022 CLINICAL HISTORY: SOB FINDINGS: A single AP view of the chest demonstrates a normal cardiomediastinal silhouette. Aortic a therosclerosis is present. No pneumothorax or pleural effusion. Mild bibasilar opacities. Osseous structures are intact. IMPRESSION: Mild bibasilar opacities may represent edema or early pneumonia. Electronically signed by: Vasu Jovel MD 05/10/2022 5:49 AM CDT Due to temporary technical issues with the PACS/Fluency reporting system, reports are being signed by the in house radiologists without. review as a courtesy to insure prompt reporting. The interpreting radiologist is fully responsible for the content of the report
--- NOTE | 2022-05-10 14:17 | RAD REPORT ---
EXAM DESCRIPTION: CT - Abdomen Pelvis W Contrast - 05/10/2022 6:37 am COMPARISON: CT abdomen pelvis February 17, 2022 CLINICAL HISTORY: [facility] Abdominal pain, acute, nonlocalized TECHNIQUE: CT of the abdomen and pelvis was acquired with IV contrast material. Coronal and sagitt al reconstructions were obtained. Automated exposure control was utilized on this examination as a dose lowering technique. FINDINGS: Lung bases: Bibasilar atelectasis. Large right and moderate left pleural effusion. Liver: Normal. Gallbladder and biliary: Normal gallbladder. Unremarkable biliary tree. Pancreas: Normal. Spleen: Normal. Adrenal glands: Normal adrenal glands. Kidneys: Normal kidneys Stomach and Small Bowel: Moderate-sized hiatal hernia. Normal small bowel. Urinary bladder: Normal. Uterus and Adnexa: Stable nodular uterine tissue. Colon and Appendix: Moderate colonic diverticulosis. No evidence of appendicitis. Retroperitoneum and lymph nodes: Normal. Vascular: Severe multivessel atherosclerosis. Peritoneal cavity: Omental nodularity is present, greatest anterior to the spleen and left liver and in the ventral abdomen. Musculoskeletal and soft tissues: Soft tissues are unremarkable. Lumbar spondylosis. No aggressive feliberto ne lesions. No compression fracture. ABDOMEN/PELVIS IMPRESSION: 1. 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 2. Stable nodular uterine tissue which may represent fibroids or neoplasm. 3. Moderate-sized hiatal hernia. 4. Moderate colonic diverticulosis. 5. Uterine fibroids. 6. Large right and moderate left pleural effusion. 7. Severe atherosclerosis. Electronically signed by: Vasu Jovel MD 05/10/2022 6:13 AM CDT Due to temporary technical issues with the PACS/Fluency reporting system, reports are being signed by the in house radiologists without. review as a courtesy to insure prompt reporting. The interpreting radiologist is fully responsible for the content of the report
[2022-05-10] MEDS: SACUBITRIL/VALSARTAN 24/26 MG TAB PO SCH ×2 (17:14→21:00)
[2022-05-10] MEDS: ENOXAPARIN 40 MG/0.4 ML SQ SCH (17:15)
[2022-05-10] MEDS: carvediloL 3.125 MG TAB PO SCH (17:15)
[2022-05-11 03:46] LABS: Absolute Lymphocytes (CBC) 1.3 K/uL (0.7-4.9); Hematocrit 23.3 % (36.0-45.0); Lymphocytes % 24.8 % (15.3-44.8); MCV 72.7 fL (80-100); MPV 6.8 fL (7.6-11.3)
[2022-05-11 04:13] LABS: Potassium 3.9 mmol/L (3.5-5.1); Thyroid Stimulating Hormone 0.964 uIU/mL (0.360-3.740)
[2022-05-11 06:03] VITALS: BMI 28.0
[2022-05-11] MEDS: carvediloL 3.125 MG TAB PO SCH ×2 (06:05→17:45)
[2022-05-11] MEDS ORDERED: REGADENOSON 0.4 MG/5 ML SYR IV ONE (07:14)
--- NOTE | 2022-05-11 07:22 | EKG ---
Test Date: 2022-05-10 Test Time: 03:55:33 Senior Applications Analyst: GASPER MEASUREMENT RESULTS: Intervals: Rate: 102 AR: 178 QRSD: 136 QT: 390 QTc: 508 [place]: P: 62 AR: 178 QRS: -5 T: 129 INTERPRETIVE STATEMENTS: Sinus tachycardia Left bundle branch block Abnormal ECG Compared to ECG 02/18/2022 08:25:27 Sinus rhythm no longer present Sinus arrhythmia no longer present Electronically Signed On 05-11-22 07:17:56 CDT by Carrillo Coley
[2022-05-11] MEDS: ASPIRIN EC 81 MG TAB PO SCH (09:00)
[2022-05-11] MEDS: ANASTROZOLE 1 MG TAB PO SCH (09:00)
[2022-05-11] MEDS: SACUBITRIL/VALSARTAN 24/26 MG TAB PO SCH ×2 (09:00→21:25)
[2022-05-11] MEDS: MEMANTINE HCL 10 MG TABLET PO SCH ×2 (09:00→21:25)
[2022-05-11] MEDS: PANTOPRAZOLE 40MG TABLET PO SCH (09:00)
--- NOTE | 2022-05-11 10:35 | RAD REPORT ---
EXAM DESCRIPTION: MRI - Brain Wo Cont - 05/11/2022 10:06 am CLINICAL HISTORY: Dementia. Alteration of consciousness/confusion COMPARISON: Head CT TECHNIQUE: Axial, sagittal, and coronal magnetic resonance images of the brain were obtained. FINDINGS: Mild to moderate signal within periventricular, deep and subcortical white matter probably ischemic changes secondary to small vessel disease Age appropriate cerebral atrophy Diffusion-weighted/ADC mapping does not reveal evidence of acute infarction. The ventricles are normal caliber. An extra-axial fluid collection is not noted. Fluid within the sinuses/mastoids is not seen IMPRESSION: No acute intracranial abnormality noted
[2022-05-11] MEDS: FUROSEMIDE 40 MG/4 ML VIAL IV SCH (10:59)
[2022-05-11] MEDS ORDERED: LEVALBUTEROL 0.63 MG/3 ML NEB NEB PRN (11:00)
--- NOTE | 2022-05-11 11:17 | P.PN ---
Subjective Date of Service: 05/11/22 Primary Care Provider: Memo Gaston Chief Complaint: chf exacerbation Subjective: Improving (possible stress test this mornin) Review of Systems 10-point ROS is otherwise unremarkable (sob and epigastric pain have resolved from yesterday) Physical Examination - Vital Signs Temperature: 97.8 F Blood Pressure: 140/67 Pulse: 98 Respirations: 20 Pulse Ox (%): 96 - Physical Exam General: Alert, In no apparent distress HEENT: Atraumatic, PERRLA, EOMI Neck: Supple, JVD not distended Respiratory: Clear to auscultation bilaterally, Normal air movement Cardiovascular: Regular rate/rhythm, Normal S1 S2 Gastrointestinal: Normal bowel sounds, No tenderness Musculoskeletal: No tenderness Integumentary: No rashes Neurological: Normal speech, Normal tone, Normal affect Lymphatics: No axilla or inguinal lymphadenopathy Assessment And Plan - Current Problems (Diagnosis) (1) CHF exacerbation Current Visit: Yes Status: Acute Plan: will start her on diuretics. Will review her meds. She is a good candidate for [employer]. There is a consult for Dr. Coley. Qualifiers: Heart failure type: diastolic Qualified Code(s): I50.33 - Acute on chronic diastolic (congestive) heart failure (2) Dementia Current Visit: Yes Status: Chronic Plan: Mild symptoms. Her daughter is in the room. Who faciltated the visit. We can see if she needs any medication if there is any owning 05/11 will have her seen by Dr. Almaraz. Unfortunately we did a MRI without contrast. Shows some atrophy. Will discuss outpatient work up Qualifiers: Dementia type: Alzheimer's (3) Carotid stenosis Current Visit: Yes Status: Acute Plan: will work up as an outpatient of the external carotids Qualifiers: Laterality: unspecified laterality Qualified Code(s): I65.29 - Occlusion and stenosis of unspecified carotid artery (4) HTN (hypertension) Current Visit: No Status: Chronic Plan: will consider tanner/arb. She also needs some betablocker. She is tachycardic in the ER. Was in the 110's at home. Qualifiers: (5) History of breast cancer Current Visit: Yes Status: Chronic Plan: continue arimdex Discharge Plan: Home Plan to discharge in: 24 Hours - Code Status/Comfort Care Code Status Assessed: No Critical Care: No Time Spent Managing PTS Care (In Minutes): 25
--- NOTE | 2022-05-11 13:11 | RAD REPORT ---
EXAM DESCRIPTION: NM - Rest Stress Cardiac Imaging - 05/11/2022 12:51 pm CLINICAL HISTORY: Chest pain. COMPARISON: February 2022 TECHNIQUE: The patient was administered 10.7 mCi of Tc 99m Sestamibi prior to resting SPECT imaging of the heart. The patient was then administered 29.2 mCi of Tc 99m Sestamibi following exercise or ph armacologic stress. Multiplanar SPECT images were reviewed. FINDINGS: Stress images demonstrate a moderate area of diminished radiotracer activity involving the the apical septal left ventricular myocardium The rest images demonstrate that most of this area reaccumulates with radiotracer. The left ventricular ejection fraction equals 57% IMPRESSION: Moderate mostly reversible perfusion defect involving the apical septal left ventricular myocardium probably indicating stress-induced ischemia
--- NOTE | 2022-05-11 14:22 | ECHO ---
HEIGHT: 5 ft 2 in WEIGHT: 153 lb 2 oz DATE OF STUDY: 05/11/[address]: Carrillo Coley MD 2-DIMENSIONAL: YES M.MODE: YES DOPPLER: YES COLOR FLOW: YES TDS: PORTABLE: YES DEFINITY: BUBBLE STUDY: DIAGNOSIS: SHORTNESS OF BREATH CARDIAC HISTORY: CATHERIZATION: SURGERY: PROSTHETIC VALVE: PACEMAKER: MEASUREMENTS (cm) DIASTOLIC (NORMALS) SYSTOLIC (NORMALS) IVSd 1.2 (0.6-1.2) LA Diam 4.1 (1.9-4.0) LVEF 60% LVIDd 3.3 (3.5-5.7) LVIDs 2.3 (2.0-3.5) %FS 31% LVPWd 1.2 (0.6-1.2) Ao Diam 2.3 (2.0-3.7) 2 DIMENSIONAL ASSESSMENT: RIGHT ATRIUM: NORMAL LEFT ATRIUM: DILATED RIGHT VENTRICLE: NORMAL LEFT VENTRICLE: NORMAL TRICUSPID VALVE: NORMAL MITRAL VALVE: NORMAL PULMONIC VALVE: NORMAL AORTIC VALVE: MITRAL ANNULAR CALCIFICATION PERICARDIAL EFFUSION: NONE AORTIC ROOT: NORMAL LEFT VENTRICULAR WALL MOTION: DECREASED LEFT VENTRICULAR COMPLIANCE DOPPLER/COLOR FLOW: MILD TRICUSPID REGURGITATION COMMENTS: MILD TRICUSPID REGURGITATION. NORMAL RIGHT VENTRICULAR SYSTOLIC PRESSURE. DIASTOLIC DYSFUNCTION. NO EFFUSION. TECHNOLOGIST: ELLEN STANTON
--- NOTE | 2022-05-11 14:45 | TREADPHA ---
DX: CHEST PAIN Date of Study: 05/11/2022 Ht: 5' 2 " Wt: 153 lb 2 oz Consulting Physician: BO MEDICATIONS: TYLENOL, ASPIRIN, COREG, LOVENOX, LASIX, XOPENEX, ZOFRAN, PROTONIX HISTORY: PATIENT WITH SHORTNESS OF BREATH ON EXERTION AND LEFT BUNDLE BRANCH BLOCK PHYSICIAL EXAMINATION: RESTING B.P.: 125/68 RESTING H.R.: 73 RESTING EKG: SINUS RHYTHM PROTOCOL: PHARMACOLOGIC EXERCISE TIME: 3:30 B.P. AT PEAK STRESS: 129/62 IMPRESSION: LEXISCAN INJECTED. CARDIOLITE INJECTED (SEE NUCLEAR MEDICINE REPORT). PREMATURE VENTRICULAR COMPLEXES NOTED DURING AND POST. COMPLAINTS OF SHORTNESS OF BREATH. NO VENTRICULAR TACHYCARDIA/ SUPRAVENTRICULAR TACHYCARDIA.
[2022-05-11 16:34] LABS: Protime INR 1.11
[2022-05-11] MEDS: ENOXAPARIN 40 MG/0.4 ML SQ SCH (17:00)
[2022-05-11] MEDS: HOME MED 1 EA UNK [ROSUVASTATIN 5 MG TAB] PO SCH (21:00)
[2022-05-11] MEDS: ENSURE ENLIVE 237 ML CAN PO SCH (21:00)
[2022-05-11] MEDS ORDERED: ROSUVASTATIN 10 MG TAB PO SCH (21:00)
--- NOTE | 2022-05-11 23:15 | CON ---
Reason For Consultation: Consultation called by Dr. Lantigua because of the patient's progressive memor y loss over a year. History Of Present Illness: The patient is Kosovan-speaking only and her sister provided some transl ation while at the patient's room. Memory loss began more than a year ago. Difficulty recalling wor ds, thoughts, conversations or actions, personal items, and words. The interview was difficult as th e patient had much difficulty being clear in terms of her claudication and her sister again does some interpretation. There was no sudden change in cognitive functioning. Her progression has been grad ual. No history of seizures or significant head trauma with loss of consciousness. Family History: Positive for heart disease and GI disease in father. Social History: Chronic alcohol use and caffeinated beverages. Past Medical History: Hypertension and memory loss, which was already diagnosis of dementia, GE refl ux disease. Breast cancer, status post chemo. Allergies: PENICILLIN. Medications: At home Cozaar 100 mg daily, omeprazole 20 mg daily, hydrochlorothiazide 12.5 mg daily, anastrozole 1 mg at bedtime, albuterol or Ventolin inhaler 2 puffs every 6 hours as needed, and she is on Zithromax 500 mg daily back in January for 5 days. Past Surgical History: Right breast biopsy many years ago, probably 15 and cyst removal from the ova par[place] and appendectomy. Review of Systems: The patient has chest pain, shortness of breath and is being worked up by Cardiology for m yocardial infarction. Otherwise, no recent fevers or chills, myalgias, arthralgias, headaches, weigh t change, or rash. Physical Examination: Vital Signs: Blood pressure 141/53, pulse 76, respiratory rate 20, temperature 97.8, oxygen saturati on 99% on room air. Weight 163 pounds, height 5 feet 2 inches, BMI 28. General: Ms. Phillips is resting in bed. She is in no significant distress. HEENT: She is normocephalic, atraumatic. Sclerae anicteric. Oropharynx is moist. Neck: Supple. Chest: Clear. Heart: Regular. Extremities: Show no edema or cyanosis. Neurological: She is alert and oriented to Kosovan, follows commands in Kosovan. In terms of her ab ility to do a cognitive exam, it is very limited. One could not be done, but she did follow simple i nstructions. Her cranial nerves, motor, coordination, sensory, and gait exams show no focal deficits or abnormalities. Laboratory Studies: Complete blood count with differential shows white blood cell count of 5.4, hemo globin 7.7, platelets 304. INR 1.1. Chemistries show low sodium of 130, otherwise unremarkable. Ca lcium initially 8.6, after hydration 8.2. Troponin I was 104.8, beta natriuretic peptide 8258. TSH 0.964. COVID-19 test is negative. Brain MRI shows [id number] periventricular small vessel ischemic disease with atrophy. No isch emic stroke or hemorrhagic stroke. Her echocardiogram showed mild tricuspid regurgitation. Normal r ight ventricular systolic pressures and diastolic function without effusion. Ejection fraction is 60 %. Assessment: Ms. Phillips is an 87-year-old patient with hdeh-xa-yvunxsys small vessel ischemic disea se. She does have some progressive deficits and did require additional blood work and EEG to help st ratify the etiology of her cognitive deficits. At this point, recommended continuing memantine, whic h she is now 10 mg twice daily. The patient started that on Monday, today is Monday. Plan: 1.Continue memantine as indicated at 10 mg twice daily. 2.Begin Aricept 5 mg daily in 1 month. 3.Continue with management of comorbid conditions as indicated. 4.Aspirin 81 mg daily. 5.The patient may be evaluated by our physical therapy staff to determine the need for continuing th erapy, which may be outpatient physical therapy to include speech therapy for cognition, and she may follow up in Dr. Almaraz's office in 1 month after discharge. ERICA/MARGARITA Voice ID: [id number] Report ID: [id number]
[2022-05-12] MEDS: carvediloL 3.125 MG TAB PO SCH ×2 (06:22→17:18)
[2022-05-12] MEDS ORDERED: FENTANYL CITR 100 MCG/2 ML ONE (06:37)
[2022-05-12] MEDS ORDERED: LIDOCAINE 1% 20 ML MDV ONE ×2 (06:37→08:27)
[2022-05-12] MEDS ORDERED: HEPA 1000U/500MLS 1,000 UNIT/500 ML BAG IV ONE (06:37)
[2022-05-12] MEDS ORDERED: ATROPINE SULF 1 MG/10 ML SYR IV ONE (06:38)
[2022-05-12] MEDS ORDERED: MIDAZOLAM HCL 2 MG/2 ML INJ ONE (06:38)
[2022-05-12] MEDS ORDERED: NITROGLYCERIN 100 MCG/ML SYR (for cath lab use only) IV ONE (06:38)
[2022-05-12] MEDS ORDERED: NA CHLORIDE 0.9% 0 ML ONE ×2 (06:38)
[2022-05-12] MEDS ORDERED: NITROGLYCERIN/D5W 25 MG/250 ML BTL IV ONE (06:39)
[2022-05-12] MEDS ORDERED: NA CHLORIDE 0.9% 500 ML ONE (07:29)
[2022-05-12] MEDS: ANASTROZOLE 1 MG TAB PO SCH (09:00)
[2022-05-12] MEDS: ASPIRIN EC 81 MG TAB PO SCH (09:00)
[2022-05-12] MEDS: PANTOPRAZOLE 40MG TABLET PO SCH (09:00)
[2022-05-12] MEDS: FUROSEMIDE 40 MG/4 ML VIAL IV SCH (09:00)
[2022-05-12] MEDS: ENSURE ENLIVE 237 ML CAN PO SCH ×2 (09:00→20:10)
[2022-05-12] MEDS: SACUBITRIL/VALSARTAN 24/26 MG TAB PO SCH ×2 (09:00→20:10)
[2022-05-12] MEDS: MEMANTINE HCL 10 MG TABLET PO SCH ×2 (09:00→20:10)
--- NOTE | 2022-05-12 09:48 | P.PN ---
Subjective Date of Service: 05/12/22 Primary Care Provider: Memo Gaston Chief Complaint: chf exacerbation Subjective: New changes (cath showed stenosis in the LAD and right blood flow. Will await the offical report) Review of Systems 10-point ROS is otherwise unremarkable (Patient is in the laboratory chemical assistant after an angiongram. No complaints) Physical Examination - Vital Signs Temperature: 97.2 F Blood Pressure: 108/55 Pulse: 75 Respirations: 15 Pulse Ox (%): 97 - Physical Exam General: Alert, In no apparent distress HEENT: Atraumatic, PERRLA, EOMI Neck: Supple, JVD not distended Respiratory: Clear to auscultation bilaterally, Normal air movement Cardiovascular: Regular rate/rhythm, Normal S1 S2 Gastrointestinal: Normal bowel sounds, No tenderness Musculoskeletal: No tenderness Integumentary: No rashes Neurological: Normal speech, Normal tone, Normal affect Lymphatics: No axilla or inguinal lymphadenopathy Assessment And Plan - Current Problems (Diagnosis) (1) CHF exacerbation Current Visit: Yes Status: Acute Plan: will start her on diuretics. Will review her meds. She is a good candidate for entresto. There is a consult for Dr. Coley. 05/12 will await the official report from Dr. Coley. reported that he is discussing the patient with Dr. Putnam to decide the best intervention for the patient. Qualifiers: Heart failure type: diastolic Qualified Code(s): I50.33 - Acute on chronic diastolic (congestive) heart failure (2) Dementia Current Visit: Yes Status: Chronic Plan: Mild symptoms. Her daughter is in the room. Who faciltated the visit. We can see if she needs any medication if there is any sundowning 05/12 started on aricept. Plan for an outpatient follow up with Dr. Almaraz. possible speech and PT. will discuss with Mrs Gaston Qualifiers: Dementia type: Alzheimer's (3) Carotid stenosis Current Visit: Yes Status: Acute Plan: will work up as an outpatient of the external carotids Qualifiers: Laterality: unspecified laterality Qualified Code(s): I65.29 - Occlusion and stenosis of unspecified carotid artery (4) HTN (hypertension) Current Visit: No Status: Chronic Plan: will consider tanner/arb. She also needs some betablocker. She is tachycardic in the ER. Was in the 110's at home. Qualifiers: (5) History of breast cancer Current Visit: Yes Status: Chronic Plan: continue arimdex Discharge Plan: Home Plan to discharge in: 24 Hours - Code Status/Comfort Care Code Status Assessed: No Critical Care: No Time Spent Managing PTS Care (In Minutes): 25
--- NOTE | 2022-05-12 13:20 | CON ---
Date of Consultation: 05/11/2022 The patient was admitted on 05/10/[address] Lantigua for dyspnea on exertion. I saw the patient on . History Of Present Illness: Ms. Phillips is an 87-year-old woman, who came into the hospital with sh ortness of breath. Did not have any chest pain. Has had PND, orthopnea, some pedal edema. Denied a ny nausea, vomiting, diaphoresis. Denied any palpitation or syncope. Denied any fever or chills. H er symptoms have been going on for about 2 months and they have become worse with exertion. Past Medical History: Includes hypertension, gastroesophageal reflux disease, and obesity. Medications: At home include losartan and omeprazole. Review of Systems: Negative. Social History: Negative. Family History: Noncontributory. Physical Examination: Vital Signs: Stable. She was afebrile. HEENT: Negative. Neck: Supple with no bruit. Chest: Revealed some rales both bases. Cardiac: Revealed a regular rhythm and rate. She had no murmurs, gallops, or rubs. Abdomen: Benign. Extremities: Revealed no clubbing, cyanosis, or edema. Laboratory Data: Her chest x-ray showed possible edema versus early pneumonia. Her EKG showed sinus rhythm with left bundle-branch block. Her echocardiogram showed a normal ejection fraction. Brain MRI was negative. She had a stress test the day I saw her that was basically consistent with apical septal stress-induced ischemia. Impression And Plan: 1.Dyspnea on exertion. 2.Obesity. 3.Hypertension. 4.Gastroesophageal reflux disease. 5.Positive stress test. We will plan for a left heart catheterization to define her coronary anatom y. The patient understands the risk and the benefits of the procedure. She agrees to proceed. KOBE/MARGARITA Voice ID: [id number] Report ID: [id number]
--- NOTE | 2022-05-12 15:45 | OP ---
Surgeon: Carrillo Coley MD Field Identification Specialist: Ms. Amparo Barron. The patient admitted to Dr. Lantigua on 05/10/2022 with shortness of breath. Had a fairly unremarkable echo except for some diastolic dysfunction, positive stress test. Procedure In Detail: Brought to the label stamper today as an inpatient, prepped and draped in the routin e sterile fashion. She had a left heart catheterization, selective coronary arteriogram, and common femoral artery angiogram. She was given Versed and fentanyl for sedation. A 6-Yi sheath introdu viet in the right common femoral artery successfully. Angiography there showed severe calcification a nd moderate stenosis in the common femoral artery. Right at the takeoff of the profunda, we decided to hold pressure for hemostasis and she will be at bedrest for 4 hours. Zahira catheter left and ri ght were used to cannulate the left main and right main respectively. The RCA was dominant, fairly l arge size vessel. Otherwise, a 90% ostial PDA stenosis and 90% mid posterolateral stenosis. The lef t main was small, but normal. Circumflex had some hquy-wy-ujwvoxhm plaquing. LAD was very small fro m the beginning to the end of the vessel with a 70% to 99% stenosis that started right before the fir st septal all the way through the mid LAD. Distally, the LAD was about a 1 mm vessel. 6-Yi garcia ths were used. No complications. Blood loss was 5 cc. Anesthesia: Total conscious sedation 45. Postoperative Diagnosis: Severe coronary artery disease. Plan is to review the film with Dr. Putnam for possible intervention, maybe atherectomy in [place] fo r LAD and maybe a stent of the posterolateral and PDA down the road. For now, the patient will be at bedrest for about 6 hours to go home today. We will make arrangements for her as an outpatient deptalia ding on what we think about the films. NB/MODL Voice ID: [id number] Report ID: [id number]
[2022-05-12] MEDS: ENOXAPARIN 40 MG/0.4 ML SQ SCH (17:00)
[2022-05-12] MEDS: HOME MED 1 EA UNK [ROSUVASTATIN 5 MG TAB] PO SCH (20:10)
[2022-05-13] MEDS: carvediloL 3.125 MG TAB PO SCH ×2 (06:27→17:36)
--- NOTE | 2022-05-13 08:15 | P.PN ---
Subjective Date of Service: 05/13/22 Primary Care Provider: Memo Gaston Chief Complaint: chf exacerbation Subjective: No new changes Review of Systems 10-point ROS is otherwise unremarkable Physical Examination - Vital Signs Temperature: 97.8 F Blood Pressure: 127/56 Pulse: 91 Respirations: 19 Pulse Ox (%): 94 - Physical Exam General: Alert, In no apparent distress HEENT: Atraumatic, PERRLA, EOMI Neck: Supple, JVD not distended Respiratory: Clear to auscultation bilaterally, Normal air movement Cardiovascular: Regular rate/rhythm, Normal S1 S2 Gastrointestinal: Normal bowel sounds, No tenderness Musculoskeletal: No tenderness Integumentary: No rashes Neurological: Normal speech, Normal tone, Normal affect Lymphatics: No axilla or inguinal lymphadenopathy Assessment And Plan - Current Problems (Diagnosis) (1) CHF exacerbation Current Visit: Yes Status: Acute Plan: will start her on diuretics. Will review her meds. She is a good candidate for entresto. There is a consult for Dr. Coley. 05/13. plans for revascularization. However we are running into some insurance difficulties. Will discuss with cardiology. They are working on the insurance issue. We may be able to transfer her or discharge with follow up. Will Discuss with Dr. Coley/Indy Qualifiers: Heart failure type: diastolic Qualified Code(s): I50.33 - Acute on chronic diastolic (congestive) heart failure (2) Dementia Current Visit: Yes Status: Chronic Plan: Mild symptoms. Her daughter is in the room. Who faciltated the visit. We can see if she needs any medication if there is any sundowning 05/12 started on aricept. Plan for an outpatient follow up with Dr. Almaraz. possible speech and PT. will discuss with Mrs Gaston Qualifiers: Dementia type: Alzheimer's (3) Carotid stenosis Current Visit: Yes Status: Acute Plan: will work up as an outpatient of the external carotids Qualifiers: Laterality: unspecified laterality Qualified Code(s): I65.29 - Occlusion and stenosis of unspecified carotid artery (4) HTN (hypertension) Current Visit: No Status: Chronic Plan: will consider tanner/arb. She also needs some betablocker. She is tachycardic in the ER. Was in the 110's at home. Qualifiers: (5) History of breast cancer Current Visit: Yes Status: Chronic Plan: continue arimdex
[2022-05-13] MEDS: ENSURE ENLIVE 237 ML CAN PO SCH ×2 (09:00→21:00)
[2022-05-13] MEDS: ASPIRIN EC 81 MG TAB PO SCH (09:09)
[2022-05-13] MEDS: ANASTROZOLE 1 MG TAB PO SCH (09:09)
[2022-05-13] MEDS: MEMANTINE HCL 10 MG TABLET PO SCH ×2 (09:10→20:28)
[2022-05-13] MEDS: SACUBITRIL/VALSARTAN 24/26 MG TAB PO SCH ×2 (09:10→20:28)
[2022-05-13] MEDS: FUROSEMIDE 40 MG/4 ML VIAL IV SCH (09:10)
[2022-05-13] MEDS: PANTOPRAZOLE 40MG TABLET PO SCH (09:10)
--- NOTE | 2022-05-13 16:45 | P.PN ---
Date of Service: 05/13/22 Patient family wanted to send her to [facility]. Son wished her to see his cardiac surgeon. Would not really recommend a sternotomy on an 87 year old. He agreed to continue with Dr. Putnam. He has the skills to take care of her through intervention. Will start a transfer to [facility] in [place] which he works at and has the necessary equipments. Have spent an addiction 30min on the patients care.
[2022-05-13] MEDS: ENOXAPARIN 40 MG/0.4 ML SQ SCH (17:00)
[2022-05-13] MEDS: HOME MED 1 EA UNK [ROSUVASTATIN 5 MG TAB] PO SCH (20:28)
[2022-05-14 06:26] LABS: Absolute Lymphocytes (CBC) 1.2 K/uL (0.7-4.9); Hematocrit 22.8 % (36.0-45.0); Lymphocytes % 24.8 % (15.3-44.8); MCV 72.3 fL (80-100); MPV 6.7 fL (7.6-11.3); RBC Red Blood Cell Count 3.16 M/uL (3.86-4.86)
[2022-05-14] MEDS: carvediloL 3.125 MG TAB PO SCH ×2 (06:29→18:18)
[2022-05-14 06:39] LABS: Albumin 3.1 g/dL (3.4-5.0); Bilirubin Total 0.6 mg/dL (0.2-1.0); Potassium 3.7 mmol/L (3.5-5.1); Protein, Total 5.9 g/dL (6.4-8.2)
[2022-05-14] MEDS: MEMANTINE HCL 10 MG TABLET PO SCH ×2 (09:00→20:52)
[2022-05-14] MEDS: ENSURE ENLIVE 237 ML CAN PO SCH ×2 (09:43→20:52)
[2022-05-14] MEDS: ANASTROZOLE 1 MG TAB PO SCH (09:44)
[2022-05-14] MEDS: FUROSEMIDE 40 MG/4 ML VIAL IV SCH (09:44)
[2022-05-14] MEDS: ASPIRIN EC 81 MG TAB PO SCH (09:44)
[2022-05-14] MEDS: PANTOPRAZOLE 40MG TABLET PO SCH (09:44)
[2022-05-14] MEDS: SACUBITRIL/VALSARTAN 24/26 MG TAB PO SCH ×2 (09:44→20:52)
--- NOTE | 2022-05-14 10:25 | P.PN ---
Subjective Date of Service: 05/14/22 Primary Care Provider: Memo Gaston Chief Complaint: chf exacerbation Subjective: No new changes Review of Systems 10-point ROS is otherwise unremarkable Physical Examination - Vital Signs Temperature: 98.0 F Blood Pressure: 120/50 Pulse: 79 Respirations: 18 Pulse Ox (%): 100 - Physical Exam General: Alert, In no apparent distress HEENT: Atraumatic, PERRLA, EOMI Neck: Supple, JVD not distended Respiratory: Clear to auscultation bilaterally, Normal air movement Cardiovascular: Regular rate/rhythm, Normal S1 S2 Gastrointestinal: Normal bowel sounds, No tenderness Musculoskeletal: No tenderness Integumentary: No rashes Neurological: Normal speech, Normal tone, Normal affect Lymphatics: No axilla or inguinal lymphadenopathy Assessment And Plan - Current Problems (Diagnosis) (1) CHF exacerbation Current Visit: Yes Status: Acute Plan: will start her on diuretics. Will review her meds. She is a good candidate for entreo. There is a consult for Dr. Coley. 05/14 Will await transfer to [facility]. Dr. Putnam would like to keep her in house. As narrow as her stenosis are. she may be ok for discharge. However it is only luck which would make her a candidate for outpatient follow up. It is best not to rely on luck for patient safety. Qualifiers: Heart failure type: diastolic Qualified Code(s): I50.33 - Acute on chronic diastolic (congestive) heart failure (2) Dementia Current Visit: Yes Status: Chronic Plan: Mild symptoms. Her daughter is in the room. Who faciltated the visit. We can see if she needs any medication if there is any sundowning 05/12 started on aricept. Plan for an outpatient follow up with Dr. Almaraz. possible speech and PT. will discuss with Mrs Gaston Qualifiers: Dementia type: Alzheimer's (3) Carotid stenosis Current Visit: Yes Status: Acute Plan: will work up as an outpatient of the external carotids Qualifiers: Laterality: unspecified laterality Qualified Code(s): I65.29 - Occlusion and stenosis of unspecified carotid artery (4) HTN (hypertension) Current Visit: No Status: Chronic Plan: will consider tanner/arb. She also needs some betablocker. She is tachycardic in the ER. Was in the 110's at home. Qualifiers: (5) History of breast cancer Current Visit: Yes Status: Chronic Plan: continue arimdex Discharge Plan: Home Plan to discharge in: 24 Hours - Code Status/Comfort Care Code Status Assessed: No Physician Review: Patient Assessed, Agree with Above Assessment and Plan Critical Care: No Time Spent Managing PTS Care (In Minutes): 20
[2022-05-14] MEDS: ENOXAPARIN 40 MG/0.4 ML SQ SCH (18:18)
--- NOTE | 2022-05-14 18:22 | PN ---
Date of Progress Note: 05/13/2022 Subjective: Seen by bedside. She is chest pain free. No shortness of breath, nausea, vomiting, radha rrhea. No other complaints. Review of Systems: The patient feels well today. Has no symptoms. All her systems were reviewed and they were negative . Physical Examination: Vital Signs: Her temperature is 98.4, pulse is 80, breathing 18, blood pressure 138/54, saturating 1 00% on room air. General: Pleasant, elderly female, in no apparent distress. Head and Neck: Pupils are equal and reactive to light. Intact eye movements. No JVD. No cervical lymphadenopathy. Neck: Supple. Thyroid is not enlarged. Lungs: Clear to auscultation bilaterally. No rhonchi, rales, or crackles. No accessory muscle use. Heart: Regular rate and rhythm. No extra sounds. Abdomen: Soft, nontender. Bowel sounds positive. No organomegaly. No masses or hernia. No rigidi ty or rebound. Extremities: No edema, clubbing, or cyanosis. Intact pulses. Skin: No rashes. Neurologic: Alert, awake, oriented x3. No acute focal deficits appreciated. Investigations: Labs reviewed. Assessment And Recommendations: 1.Non-ST elevation myocardial infarction, very severe coronary artery disease. Needs complex PCI. Recommend to transfer to higher level of care facility for inpatient intervention for coronary arteri es. The patient in agreement. She wants to contact her son and discuss this further and they will l et me know once they make a decision. 2.Congestive heart failure. She seems to be euvolemic. Continue current medications with IV Lasix. Monitor BUN, creatinine, electrolytes. 3.Hypertension. Blood pressure is controlled. SR/MODL Voice ID: [id number] Report ID: [id number]
[2022-05-14] MEDS: HOME MED 1 EA UNK [ROSUVASTATIN 5 MG TAB] PO SCH (20:52)
--- NOTE | 2022-05-14 21:07 | PN ---
Date of Progress Note: 05/14/2022 Subjective: Patient was seen at bedside. She is doing clinically well. Does not have any chest eliceo n or shortness of breath or orthopnea. No nausea, vomiting, or diarrhea. All other systems were rev iewed and they were negative. Physical Examination: Vital Signs: Reviewed. Temperature is 97.8, pulse 88, breathing at 16, blood pressure is 113/50, sa turating 97% on room air. General: Pleasant, alert female, no apparent distress. Head and Neck: Pupils are equal, reactive to light. Intact eye movements. No JVD. No cervical lym phadenopathy. Neck: Supple. Thyroid is not enlarged. Lungs: Clear to auscultation bilaterally. No rhonchi, rales, or crackles. No accessory muscle use. Heart: Regular rate and rhythm. No extra sounds. Abdomen: Soft, nontender. Bowel sounds positive. No organomegaly. No masses or hernia. No rigidi ty or rebound. Extremities: No clubbing or cyanosis. Intact pulses. Skin: No rashes. Neurologic: Alert, awake, oriented x3. No acute focal deficits appreciated. Lymph Nodes: No cervical or axillary lymphadenopathy. Investigations: Her BUN is 21, creatinine 0.68 today, and hemoglobin 7.7. Assessment And Recommendation: 1.Htc-GB-olqvlkbxy myocardial infarction. She is clinically hemodynamically stable, and no chest pa in. Patient agreed to transfer to higher level of care center for a complex percutaneous coronary in tervention. We will plan on transferring her through the weekend and hope that we can intervene by M or Monday. Meanwhile, continue aspirin, Lovenox, and beta nate. 2.Congestive heart failure. She is euvolemic and her blood pressure is on the low side now. I go mmend to switch the Lasix to 40 mg p.o. twice a day and discontinue IV Lasix. 3.Hypertension. Blood pressure is controlled. SR/MODL Voice ID: [id number] Report ID: [id number]
[2022-05-15] MEDS: carvediloL 3.125 MG TAB PO SCH ×2 (06:41→18:06)
[2022-05-15 07:25] LABS: Absolute Lymphocytes (CBC) 1.2 K/uL (0.7-4.9); Hematocrit 23.3 % (36.0-45.0); Lymphocytes % 26.9 % (15.3-44.8); MCV 71.8 fL (80-100); MPV 6.7 fL (7.6-11.3); RBC Red Blood Cell Count 3.25 M/uL (3.86-4.86)
[2022-05-15 07:41] LABS: Bilirubin Total 0.7 mg/dL (0.2-1.0); Potassium 3.9 mmol/L (3.5-5.1); Protein, Total 5.9 g/dL (6.4-8.2)
[2022-05-15] MEDS: FUROSEMIDE 40 MG/4 ML VIAL IV SCH (10:14)
[2022-05-15] MEDS: PANTOPRAZOLE 40MG TABLET PO SCH (10:15)
[2022-05-15] MEDS: ANASTROZOLE 1 MG TAB PO SCH (10:15)
[2022-05-15] MEDS: SACUBITRIL/VALSARTAN 24/26 MG TAB PO SCH ×2 (10:15→20:40)
[2022-05-15] MEDS: ASPIRIN EC 81 MG TAB PO SCH (10:15)
[2022-05-15] MEDS: MEMANTINE HCL 10 MG TABLET PO SCH ×2 (10:15→20:41)
[2022-05-15] MEDS: ENSURE ENLIVE 237 ML CAN PO SCH ×2 (10:16→20:41)
--- NOTE | 2022-05-15 11:46 | P.PN ---
Subjective Date of Service: 05/15/22 Primary Care Provider: Memo Gaston Chief Complaint: chf exacerbation Subjective: No new changes Review of Systems 10-point ROS is otherwise unremarkable Physical Examination - Vital Signs Temperature: 98 F Blood Pressure: 116/47 Pulse: 76 Respirations: 18 Pulse Ox (%): 98 - Physical Exam General: Alert, In no apparent distress HEENT: Atraumatic, PERRLA, EOMI Neck: Supple, JVD not distended Respiratory: Clear to auscultation bilaterally, Normal air movement Cardiovascular: Regular rate/rhythm, Normal S1 S2 Gastrointestinal: Normal bowel sounds, No tenderness Musculoskeletal: No tenderness Integumentary: No rashes Neurological: Normal speech, Normal tone, Normal affect Lymphatics: No axilla or inguinal lymphadenopathy Assessment And Plan - Current Problems (Diagnosis) (1) CHF exacerbation Current Visit: Yes Status: Acute Plan: will start her on diuretics. Will review her meds. She is a good candidate for entresto. There is a consult for Dr. Coley. 05/15 Will await transfer to [facility]. most likely not till Monday Qualifiers: Heart failure type: diastolic Qualified Code(s): I50.33 - Acute on chronic diastolic (congestive) heart failure (2) Dementia Current Visit: Yes Status: Chronic Plan: Mild symptoms. Her daughter is in the room. Who faciltated the visit. We can see if she needs any medication if there is any 05/12 started on aricept. Plan for an outpatient follow up with Dr. Almaraz. possible speech and PT. will discuss with Mrs Gaston Qualifiers: Dementia type: Alzheimer's (3) Carotid stenosis Current Visit: Yes Status: Acute Plan: will work up as an outpatient of the external carotids Qualifiers: Laterality: unspecified laterality Qualified Code(s): I65.29 - Occlusion and stenosis of unspecified carotid artery (4) HTN (hypertension) Current Visit: No Status: Chronic Plan: will consider tanner/arb. She also needs some betablocker. She is tachycardic in the ER. Was in the 110's at home. Qualifiers: (5) History of breast cancer Current Visit: Yes Status: Chronic Plan: continue arimdex Discharge Plan: Transfer Plan to discharge in: 24 Hours - Code Status/Comfort Care Code Status Assessed: No Physician Review: Patient Assessed, Agree with Above Assessment and Plan Critical Care: No Time Spent Managing PTS Care (In Minutes): 20
[2022-05-15] MEDS: ENOXAPARIN 40 MG/0.4 ML SQ SCH (18:06)
[2022-05-15] MEDS: HOME MED 1 EA UNK [ROSUVASTATIN 5 MG TAB] PO SCH (21:00)
--- NOTE | 2022-05-15 21:18 | PN ---
Date of Progress Note: 05/15/2022 Subjective: Seen by bedside. She has been chest pain free. No nausea, vomiting, diarrhea. No abdo michelle pain. No dysuria, polyuria, or urinary urgency. All other systems reviewed are negative. Physical Examination: Vital Signs: Reviewed. Head and Neck: Pupils are equal, reactive to light. Intact eye movements. No JVD. No cervical lym phadenopathy. Neck is supple. Thyroid is not enlarged. Lungs: Clear to auscultation bilaterally. No rhonchi, wheezing, or crackles. No accessory muscle u se. Heart: Regular rate and rhythm. No extra sounds. Abdomen: Soft, nontender. Bowel sounds positive. No organomegaly. No masses or hernia. No rigidi ty or rebound. Extremities: No edema, clubbing, or cyanosis. Intact pulses. Skin: No rash. Neurologic: Alert, awake, oriented x3. No acute focal deficits appreciated. Investigations: Creatinine is 0.69. Hemoglobin is 7.7. Assessment And Recommendations: 1.Acute non-ST elevation myocardial infarction with significant coronary artery disease. Interventi on will be complex now. Await on the acceptance at the tertiary center. We will plan to intervene o n her once transferred to [facility]. Meanwhile, continue aspirin and continue Coreg. 2.Congestive heart failure. She is euvolemic. Please change the IV Lasix to oral and carefully mon itor BUN and creatinine. SR/MODL Voice ID: [id number] Report ID: [id number]
[2022-05-16] MEDS: carvediloL 3.125 MG TAB PO SCH ×2 (05:13→17:16)
[2022-05-16 06:14] LABS: Absolute Lymphocytes (CBC) 1.5 K/uL (0.7-4.9); Hematocrit 23.4 % (36.0-45.0); MCV 72.1 fL (80-100); MPV 6.6 fL (7.6-11.3); RBC Red Blood Cell Count 3.24 M/uL (3.86-4.86)
[2022-05-16 06:23] LABS: Albumin 3.1 g/dL (3.4-5.0); Bilirubin Total 0.7 mg/dL (0.2-1.0); Potassium 3.7 mmol/L (3.5-5.1); Protein, Total 5.9 g/dL (6.4-8.2)
--- NOTE | 2022-05-16 08:32 | P.PN ---
Subjective Date of Service: 05/16/22 Primary Care Provider: Memo Gaston Chief Complaint: chf exacerbation Subjective: No new changes Review of Systems 10-point ROS is otherwise unremarkable Physical Examination - Vital Signs Temperature: 96.9 F Blood Pressure: 120/51 Pulse: 83 Respirations: 19 Pulse Ox (%): 98 - Physical Exam General: Alert, In no apparent distress HEENT: Atraumatic, PERRLA, EOMI Neck: Supple, JVD not distended Respiratory: Clear to auscultation bilaterally, Normal air movement Cardiovascular: Regular rate/rhythm, Normal S1 S2 Gastrointestinal: Normal bowel sounds, No tenderness Musculoskeletal: No tenderness Integumentary: No rashes Neurological: Normal speech, Normal tone, Normal affect Lymphatics: No axilla or inguinal lymphadenopathy Assessment And Plan - Current Problems (Diagnosis) (1) CHF exacerbation Current Visit: Yes Status: Acute Plan: will start her on diuretics. Will review her meds. She is a good candidate for entresto. There is a consult for Dr. Coley. 05/16 Will await transfer to [facility]. most likely not till Monday Qualifiers: Heart failure type: diastolic Qualified Code(s): I50.33 - Acute on chronic diastolic (congestive) heart failure (2) Dementia Current Visit: Yes Status: Chronic Plan: Mild symptoms. Her daughter is in the room. Who faciltated the visit. We can see if she needs any medication if there is any 05/12 started on aricept. Plan for an outpatient follow up with Dr. Almaraz. possible speech and PT. will discuss with Mrs Gaston Qualifiers: Dementia type: Alzheimer's (3) Carotid stenosis Current Visit: Yes Status: Acute Plan: will work up as an outpatient of the external carotids Qualifiers: Laterality: unspecified laterality Qualified Code(s): I65.29 - Occlusion and stenosis of unspecified carotid artery (4) HTN (hypertension) Current Visit: No Status: Chronic Plan: will consider tanner/arb. She also needs some betablocker. She is tachycardic in the ER. Was in the 110's at home. Qualifiers: (5) History of breast cancer Current Visit: Yes Status: Chronic Plan: continue arimdex (6) CAD (coronary artery disease) Current Visit: Yes Status: Chronic Plan: awaiting transfer for revasculation. will work on the transfer to [facility] Qualifiers: Coronary Disease-Associated Artery/Lesion type: chitina artery Discharge Plan: Home Plan to discharge in: 24 Hours - Code Status/Comfort Care Code Status Assessed: No Physician Review: Patient Assessed, Agree with Above Assessment and Plan Critical Care: No Time Spent Managing PTS Care (In Minutes): 25
[2022-05-16] MEDS: ENSURE ENLIVE 237 ML CAN PO SCH ×2 (09:00→20:48)
[2022-05-16] MEDS: ANASTROZOLE 1 MG TAB PO SCH (10:04)
[2022-05-16] MEDS: PANTOPRAZOLE 40MG TABLET PO SCH (10:05)
[2022-05-16] MEDS: ASPIRIN EC 81 MG TAB PO SCH (10:05)
[2022-05-16] MEDS: FUROSEMIDE 40 MG/4 ML VIAL IV SCH (10:05)
[2022-05-16] MEDS: MEMANTINE HCL 10 MG TABLET PO SCH ×2 (10:05→20:35)
[2022-05-16] MEDS: SACUBITRIL/VALSARTAN 24/26 MG TAB PO SCH ×2 (10:05→20:35)
[2022-05-16] MEDS: ENOXAPARIN 40 MG/0.4 ML SQ SCH (17:16)
--- NOTE | 2022-05-16 19:46 | PN ---
Date of Progress Note: 05/16/2022 Subjective: Seen by bedside. Doing quite well. No chest pain. Review of Systems: No chest pain, shortness of breath, orthopnea, cough. No nausea, vomiting, diarrhea. All other syst ems reviewed are negative. Physical Examination: Vital Signs: Reviewed. Head and Neck: Pupils are equal, reactive to light. Intact eye movements. No JVD. No cervical lym phadenopathy. Neck is supple. Thyroid is not enlarged. Lungs: Clear to auscultation bilaterally. No rhonchi, wheezing, or crackles. No accessory muscle u se. Heart: Regular rate and rhythm. No extra sounds. Abdomen: Soft, nontender. Bowel sounds positive. No organomegaly. No masses or hernia. No rigidi ty or rebound. Extremities: No clubbing or cyanosis. Intact pulses. Skin: No rash. Neurologic: Alert, awake, oriented x3. No acute focal deficits appreciated. Investigations: Labs reviewed. Assessment And Recommendations: 1.Severe multivessel coronary artery disease. Awaiting on transfer to higher level of care facility for complex PCI. Meanwhile, continue aspirin and add Lipitor 40 mg at bedtime. 2.Hypertension. Blood pressure is controlled. Continue current medications. 3.Congestive heart failure exacerbation. She is euvolemic and appropriately switched to oral Lasix. SR/MODL Voice ID: [id number] Report ID: [id number]
[2022-05-16] MEDS: ROSUVASTATIN 10 MG TAB PO SCH (20:35)
[2022-05-16] MEDS: HOME MED 1 EA UNK [ROSUVASTATIN 5 MG TAB] PO SCH (20:36)
[2022-05-17] MEDS: carvediloL 3.125 MG TAB PO SCH ×2 (05:20→18:40)
--- NOTE | 2022-05-17 08:45 | P.PN ---
Subjective Date of Service: 05/17/22 Primary Care Provider: Memo Gaston Chief Complaint: chf exacerbation Subjective: No new changes Review of Systems 10-point ROS is otherwise unremarkable Physical Examination - Vital Signs Temperature: 97.9 F Blood Pressure: 103/48 Pulse: 86 Respirations: 19 Pulse Ox (%): 100 - Physical Exam General: Alert, In no apparent distress HEENT: Atraumatic, PERRLA, EOMI Neck: Supple, JVD not distended Respiratory: Clear to auscultation bilaterally, Normal air movement Cardiovascular: Regular rate/rhythm, Normal S1 S2 Gastrointestinal: Normal bowel sounds, No tenderness Musculoskeletal: No tenderness Integumentary: No rashes Neurological: Normal speech, Normal tone, Normal affect Lymphatics: No axilla or inguinal lymphadenopathy Assessment And Plan - Current Problems (Diagnosis) (1) CAD (coronary artery disease) Current Visit: Yes Status: Chronic Plan: awaiting transfer for revasculation. will work on the transfer to [facility] 05/17 [facility] is still full. Discussed with Dr. Putnam. He is planning to put her on the photo lab specialist board at [facility]. Transfer her to the labor relations worker there when he can get a spot. Qualifiers: Coronary Disease-Associated Artery/Lesion type: grindstone artery (2) CHF exacerbation Current Visit: Yes Status: Acute Plan: will start her on diuretics. Will review her meds. She is a good candidate for entresto. There is a consult for Dr. Coley. 05/16 Will await transfer to [facility]. most likely not till Monday Qualifiers: Heart failure type: diastolic Qualified Code(s): I50.33 - Acute on chronic diastolic (congestive) heart failure (3) Dementia Current Visit: Yes Status: Chronic Plan: Mild symptoms. Her daughter is in the room. Who faciltated the visit. We can see if she needs any medication if there is any 05/12 started on aricept. Plan for an outpatient follow up with Dr. Almaraz. possible speech and PT. will discuss with Mrs Gaston Qualifiers: Dementia type: Alzheimer's (4) Carotid stenosis Current Visit: Yes Status: Acute Plan: will work up as an outpatient of the external carotids Qualifiers: Laterality: unspecified laterality Qualified Code(s): I65.29 - Occlusion and stenosis of unspecified carotid artery (5) HTN (hypertension) Current Visit: No Status: Chronic Plan: will consider tanner/arb. She also needs some betablocker. She is tachycardic in the ER. Was in the 110's at home. Qualifiers: (6) History of breast cancer Current Visit: Yes Status: Chronic Plan: continue arimdex Discharge Plan: Home Plan to discharge in: 24 Hours - Code Status/Comfort Care Code Status Assessed: No Physician Review: Patient Assessed, Agree with Above Assessment and Plan Critical Care: No Time Spent Managing PTS Care (In Minutes): 20
[2022-05-17] MEDS: ENSURE ENLIVE 237 ML CAN PO SCH ×2 (09:00→20:23)
[2022-05-17] MEDS: ASPIRIN EC 81 MG TAB PO SCH (09:01)
[2022-05-17] MEDS: SACUBITRIL/VALSARTAN 24/26 MG TAB PO SCH ×2 (09:01→20:23)
[2022-05-17] MEDS: PANTOPRAZOLE 40MG TABLET PO SCH (09:01)
[2022-05-17] MEDS: ANASTROZOLE 1 MG TAB PO SCH (09:01)
[2022-05-17] MEDS: FUROSEMIDE 40 MG/4 ML VIAL IV SCH (09:02)
[2022-05-17] MEDS: MEMANTINE HCL 10 MG TABLET PO SCH ×2 (09:02→20:23)
[2022-05-17] MEDS: ENOXAPARIN 40 MG/0.4 ML SQ SCH (18:41)
[2022-05-17] MEDS: HOME MED 1 EA UNK [ROSUVASTATIN 5 MG TAB] PO SCH (20:24)
[2022-05-17] MEDS: ROSUVASTATIN 10 MG TAB PO SCH (20:24)
[2022-05-17 20:40] VITALS: O2SAT 98
[2022-05-18] MEDS: carvediloL 3.125 MG TAB PO SCH (06:23)
--- NOTE | 2022-05-18 07:59 | P.PN ---
Subjective Date of Service: 05/18/22 Primary Care Provider: Memo Gaston Chief Complaint: chf exacerbation Subjective: No new changes Review of Systems 10-point ROS is otherwise unremarkable Physical Examination - Vital Signs Temperature: 97.9 F Blood Pressure: 103/47 Pulse: 69 Respirations: 19 Pulse Ox (%): 99 - Physical Exam General: Alert, In no apparent distress HEENT: Atraumatic, PERRLA, EOMI Neck: Supple, JVD not distended Respiratory: Clear to auscultation bilaterally, Normal air movement Cardiovascular: Regular rate/rhythm, Normal S1 S2 Gastrointestinal: Normal bowel sounds, No tenderness Musculoskeletal: No tenderness Integumentary: No rashes Neurological: Normal speech, Normal tone, Normal affect Lymphatics: No axilla or inguinal lymphadenopathy Assessment And Plan - Current Problems (Diagnosis) (1) CAD (coronary artery disease) Current Visit: Yes Status: Chronic Plan: awaiting transfer for revasculation. will work on the transfer to [facility] 05/18 [facility] still full. Discussed with Dr. Putnam. He is planning to put her on the laboratory immunologist board at [facility]. Possibly will go to the [facility] laboratory immunologist today Qualifiers: Coronary Disease-Associated Artery/Lesion type: in[place] artery (2) CHF exacerbation Current Visit: Yes Status: Acute Plan: will start her on diuretics. Will review her meds. She is a good candidate for entresto. There is a consult for Dr. Coley. 05/16 Will await transfer to [facility]. most likely not till Monday Qualifiers: Heart failure type: diastolic Qualified Code(s): I50.33 - Acute on chronic diastolic (congestive) heart failure (3) Dementia Current Visit: Yes Status: Chronic Plan: Mild symptoms. Her daughter is in the room. Who faciltated the visit. We can see if she needs any medication if there is any 05/12 started on aricept. Plan for an outpatient follow up with Dr. Almaraz. possible speech and PT. will discuss with Mrs Gaston Qualifiers: Dementia type: Alzheimer's (4) Carotid stenosis Current Visit: Yes Status: Acute Plan: will work up as an outpatient of the external carotids Qualifiers: Laterality: unspecified laterality Qualified Code(s): I65.29 - Occlusion and stenosis of unspecified carotid artery (5) HTN (hypertension) Current Visit: No Status: Chronic Plan: will consider tanner/arb. She also needs some betablocker. She is tachycardic in the ER. Was in the 110's at home. Qualifiers: (6) History of breast cancer Current Visit: Yes Status: Chronic Plan: continue arimdex Discharge Plan: Transfer Plan to discharge in: 24 Hours - Code Status/Comfort Care Code Status Assessed: No Physician Review: Patient Assessed, Agree with Above Assessment and Plan Critical Care: No Time Spent Managing PTS Care (In Minutes): 20
[2022-05-18] MEDS: FUROSEMIDE 40 MG/4 ML VIAL IV SCH (09:00)
[2022-05-18] MEDS: ENSURE ENLIVE 237 ML CAN PO SCH (09:00)
[2022-05-18] MEDS: SACUBITRIL/VALSARTAN 24/26 MG TAB PO SCH (09:21)
[2022-05-18] MEDS: PANTOPRAZOLE 40MG TABLET PO SCH (09:21)
[2022-05-18] MEDS: MEMANTINE HCL 10 MG TABLET PO SCH (09:21)
[2022-05-18] MEDS: ASPIRIN EC 81 MG TAB PO SCH (09:21)
[2022-05-18] MEDS: ANASTROZOLE 1 MG TAB PO SCH (09:21)
[2022-05-18 12:38] VITALS: BP 103/43; TEMP 96.3
--- NOTE | 2022-05-19 09:22 | P.DS ---
Admission Date: 05/10/22 Discharge Date: 05/18/22 Primary Care Provider: Memo Alek Disposition: TRANSFER TO [facility] Discharge Condition: FAIR Reason for Admission: chf exacerbation - Problems (1) CAD (coronary artery disease) Status: Chronic Qualifiers: Coronary Disease-Associated Artery/Lesion type: [place] artery (2) CHF exacerbation Status: Acute Qualifiers: Heart failure type: diastolic Qualified Code(s): I50.33 - Acute on chronic diastolic (congestive) heart failure (3) Dementia Status: Chronic Qualifiers: Dementia type: Alzheimer's (4) Carotid stenosis Status: Acute Qualifiers: Laterality: unspecified laterality Qualified Code(s): I65.29 - Occlusion and stenosis of unspecified carotid artery (5) HTN (hypertension) Status: Chronic Qualifiers: (6) History of breast cancer Status: Chronic Brief History of Present Illness: Patient is a pleasant patient of Mrs Gaston [employer]. She suffers from dementia and chf. She was getting shorter of breath with walking. Some substernal/epigastric pain. Non radiating to the arm. However her family brought her in. The patient was wheezing. Improved with a breathing treatment. She did not complaint of any leg swelling. She has a history of carotid stenosis. She has been refered to Dr. Card. Hospital Course: Patient was admitted for chf exacerbation. She did well for diuresis. Was seen by Dr. Cloey for her heart. Seen by Dr. Almaraz for her worsening dementia. The patient was found to have 2 very tight stenosis on angiogram. The plan was to move her to [place] for revascularization. The transfer was difficult due to no bed in [facility]. However have been working with Dr. Putnam, who was able to expedite the process. Thank you for allowing me to take part in her care. Vital Signs/Physical Exam: Temp Pulse Resp BP Pulse Ox 96.3 F L 78 18 103/43 L 96 05/18/22 12:00 05/18/22 12:00 05/18/22 12:00 05/18/22 12:00 05/18/22 12:00 General: Alert, In no apparent distress HEENT: Atraumatic, PERRLA, EOMI Neck: Supple, JVD not distended Respiratory: Clear to auscultation bilaterally, Normal air movement Cardiovascular: Regular rate/rhythm, Normal S1 S2 Gastrointestinal: Normal bowel sounds, No tenderness Musculoskeletal: No tenderness Integumentary: No rashes Neurological: Normal speech, Normal tone, Normal affect Lymphatics: No axilla or inguinal lymphadenopathy Laboratory Data at Discharge: WBC 5.1 K/uL (4.3-10.9) D 05/16/22 05:48 Hgb 7.8 g/dL (12.0-15.0) L 05/16/22 05:48 Hct 23.4 % (36.0-45.0) L 05/16/22 05:48 Plt Count 330 K/uL (152-406) 05/16/22 05:48 PT 12.2 SECONDS (9.5-12.5) 05/11/22 16:21 INR 1.11 05/11/22 16:21 APTT 25.4 SECONDS (24.3-36.9) 05/11/22 16:21 Sodium 131 mmol/L (136-145) L 05/16/22 05:48 Potassium 3.7 mmol/L (3.5-5.1) 05/16/22 05:48 BUN 19 mg/dL (7-18) H 05/16/22 05:48 Creatinine 0.77 mg/dL (0.55-1.3) 05/16/22 05:48 Glucose 99 mg/dL (74-106) 05/16/22 05:48 Total Bilirubin 0.7 mg/dL (0.2-1.0) 05/16/22 05:48 AST 17 U/L (15-37) 05/16/22 05:48 ALT 15 U/L (12-78) 05/16/22 05:48 Alkaline Phosphatase 43 U/L (45-117) L 05/16/22 05:48 Home Medications: Losartan Potassium [Cozaar] 100 mg PO DAILY WITH BREAKFAST 09/16/16 Omeprazole 20 mg PO DAILY 09/16/16 Anastrozole [Arimidex*] 1 mg PO BEDTIME 02/15/22 Aspirin 81 mg PO DAILY 05/10/22 Memantine HCl [Namenda] 5 mg PO BID 05/10/22 Rosuvastatin [Crestor*] 5 mg PO DAILY 05/10/22 Followup: Randy Almaraz MD [ASSOCIATE-ACTIVE - CAN ADMIT] - 1-2 Weeks Frank Putnam MD [ACTIVE - CAN ADMIT] - Yadira Gaston FNP [ALLIED HEALTH PROFESSIONAL] - 1 Week
== END 2022-05-18 12:53 | disposition short-term general hospital (02) | DRG 280 ==
LOC: ER 03:49 → ERHOLD 06:25 → 4TH 08:55
PROVIDERS: ADMIT Internal Medicine; ATTEND Internal Medicine
PROC: B2011ZZ Plain Radiography of Multiple Coronary Arteries using Low Osmolar Contrast (ICD-10-PCS; principal; 2022-05-12)
DX: I21.4 Non-ST elevation (NSTEMI) myocardial infarction (principal); I50.33 Acute on chronic diastolic (congestive) heart failure; I11.0 Hypertensive heart disease with heart failure; I25.10 Atherosclerotic heart disease of native coronary artery without angina pectoris; G30.9 Alzheimer's disease, unspecified; F02.80 Dementia in other diseases classified elsewhere, unspecified severity, without behavioral disturbance, psychotic disturbance, mood disturbance, and anxiety; I65.29 Occlusion and stenosis of unspecified carotid artery; K21.9 Gastro-esophageal reflux disease without esophagitis; E66.9 Obesity, unspecified; Z68.28 Body mass index [BMI] 28.0-28.9, adult; Z85.3 Personal history of malignant neoplasm of breast; Z88.0 Allergy status to penicillin; Z20.822 Contact with and (suspected) exposure to COVID-19
CPT/HCPCS: 36415; 70551; 71045; 74177; 78452; 80048; 80053; 82565; 83880; 84443; 84484; 85025; 85610; 85730; 93005; 93017; 93306; 93454; 94640; 97116; 97161; 97530; 99285; A9500; C1893; J0583; J1644; J1650; J1940; J2250; J2405; J2785; J3010; J7040; Q9966; Q9967; U0003

== ENCOUNTER 2022-05-30 12:22 | Inpatient (IN) | payer MEDICARE ==
--- NOTE | 2022-05-30 14:02 | RAD REPORT ---
EXAM DESCRIPTION: RAD - Chest Single View - 05/30/2022 1:53 pm CLINICAL HISTORY: DYSPNEA COMPARISON: Portable 05/10/2022 and 02/17/2022 TECHNIQUE: AP portable chest image was obtained 05/30/2022 1:53 pm . FINDINGS: Diffusely prominent interstitial pattern throughout the lung hawkins, worse in the lower ri ght lung field. Pattern is worse than on prior imaging. Right-sided pleural effusion is present. A sm aller left pleural effusion is seen. Cardiomegaly and vascular engorgement seen. Fluid is seen along the minor fissure on the right. No p neumothorax. No acute bony abnormality seen. No acute aortic findings suspected. IMPRESSION: CHF/volume overload pattern is present moderate in severity. Bilateral pleural effusions are suspected, right greater than left
[2022-05-30 14:03] LABS: Hematocrit 22.9 % (36.0-45.0); Lymphocytes % 8.7 % (15.3-44.8); MCV 72.6 fL (80-100); RBC Red Blood Cell Count 3.16 M/uL (3.86-4.86)
[2022-05-30 14:10] LABS: Protime INR 1.13
[2022-05-30 14:20] LABS: Albumin 3.2 g/dL (3.4-5.0); Bilirubin Direct 0.4 mg/dL (0-0.2); Magnesium 1.7 mg/dL (1.8-2.4); Potassium 4.1 mmol/L (3.5-5.1); Protein, Total 6.5 g/dL (6.4-8.2)
[2022-05-30 14:23] LABS: Troponin High Sensitivity 91.1 pg/mL (<58.9)
--- NOTE | 2022-05-30 14:37 | EDPHYS ---
Physician Documentation [facility] Name: Kelly Phillips Age: 87 yrs Sex: Female : 1935 Arrival Date: 05/30/2022 Time: 12:43 Bed 18 Private MD: ED Physician Julio Rouse HPI: 05/30 15:33 This 87 yrs old Female presents to ER via EMS with complaints of sob. rn 15:33 The patient has shortness of breath at rest, with light activity. Onset: The rn symptoms/episode began/occurred 3 day(s) ago. Duration: The symptoms are intermittent. The patient's shortness of breath is aggravated by light activity, supine position, talking, is alleviated by rest, sitting up. Associated signs and symptoms: Pertinent negatives: chest pain, non-productive cough, fever, hemoptysis. Severity of symptoms: At their worst the symptoms were moderate in the emergency department the symptoms are unchanged. The patient has experienced similar episodes in the past. The patient has been recently seen by a physician:. Family reports a few days of sob, worse when supine, sleeping in recliner lately, + swelling of legs. + recent diagnosis of unknown cancer. NO hx of dvt/PE. No fever. No cough. . Historical: - Allergies: 12:47 PENICILLINS; ph - Home Meds: 15:42 amlodipine 5 mg tab 1 tab once daily [Active]; anastrozole 1 mg Oral tab 1 tab once ph daily [Active]; aspirin 81 mg Oral chew 1 tab once daily [Active]; atorvastatin 40 mg oral tab 1 tab once daily [Active]; cyclobenzaprine 10 mg Oral tab 1 tab once daily [Active]; losartan 100 mg Oral tab 1 tab nightly [Active]; memantine 5 mg oral tab 1 tab 2 times per day [Active]; omeprazole 20 mg Oral cpDR 1 cap once daily [Active]; trazodone 50 mg Oral tab 1 tab nightly, PRN [Active]; - PMHx: 12:47 GERD; Hypertensive disorder; ph - PSHx: 12:47 Appendectomy; tumor removal RT breast; ph - Immunization history:: Adult Immunizations unknown. - Social history:: Smoking status: Patient denies any tobacco usage or history of. - Family history:: not pertinent. - Hospitalizations: : No recent hospitalization is reported. ROS: 15:33 Constitutional: Negative for fever, chills, and weight loss, Eyes: Negative for injury, rn pain, redness, and discharge, Neck: Negative for injury, pain, and swelling, Cardiovascular: Negative for chest pain, palpitations Respiratory: + sob Abdomen/GI: Negative for abdominal pain, nausea, vomiting, diarrhea, and constipation, Back: Negative for injury and pain, MS/Extremity: + swelling of legs Skin: Negative for injury, rash, and discoloration, Neuro: Negative for headache, weakness, numbness, tingling, and seizure. Exam: 15:33 Constitutional: This is a well developed, well nourished patient who is awake, alert, rn moderate tachypnea with audible wheezing Head/Face: Normocephalic, atraumatic. ENT: No stridor Cardiovascular: Regular rate and rhythm. No pulse deficits. Respiratory: + moderate tachypnea, diminished at bases, + faint wheezing Abdomen/GI: soft, non-tender MS/ Extremity: 2+ peripheral edema Neuro: Awake and alert, GCS 15 Vital Signs: 12:44 BP 133 / 64; Pulse 99; Resp 22; Temp 97.8; Pulse Ox 97% on R/A; ph 14:30 BP 128 / 57; Pulse 94; Resp 22; Pulse Ox 97% on R/A; ph 15:39 BP 130 / 61; Pulse 99; Resp 18; Pulse Ox 98% on R/A; ph 16:28 BP 129 / 59; Pulse 94; Resp 24; Pulse Ox 95% on R/A; ph 18:00 BP 123 / 58; Pulse 94; Resp 24; Pulse Ox 99% on 2 lpm NC; ph MDM: 12:43 Patient medically screened. rn 15:32 ED course: Pt meets SIRS criteria 2/2 pulmonary edema and dyspnea, but no infection rn identified. Will admit for pulmonary edema/CHF/pleural effusions.. 05/30 12:45 Order name: BMP; Complete Time: 14:33 rn 05/30 12:45 Order name: Blood Culture Adult (2) rn 05/30 12:45 Order name: CBC with Diff; Complete Time: 14:11 rn 05/30 12:45 Order name: Hepatic Function; Complete Time: 14:33 rn 05/30 12:45 Order name: Lipase; Complete Time: 14:33 rn 05/30 12:45 Order name: Magnesium; Complete Time: 14:33 rn 05/30 12:45 Order name: NT PRO-BNP; Complete Time: 14:33 rn 05/30 12:45 Order name: PT-INR; Complete Time: 14:11 rn 05/30 12:45 Order name: Ptt, Activated; Complete Time: 14:11 rn 05/30 12:45 Order name: Troponin High Sensitivity; Complete Time: 14:33 rn 05/30 15:03 Order name: COVID-19 SARS RT PCR (Document "Date of Onset" if Symptomatic) 3 05/30 15:59 Order name: CBC with Automated Diff [facility] 05/30 15:59 Order name: CBC with Automated Diff [facility] 05/30 12:45 Order name: XRAY CXR (1 view); Complete Time: 14:11 05/30 12:45 Order name: EKG; Complete Time: 12:47 05/30 12:45 Order name: Cardiac monitoring; Complete Time: 12:49 05/30 12:45 Order name: EKG - Nurse/Tech; Complete Time: 14: 05/30 12:45 Order name: CT Chest For PE Angio 05/30 12:50 Order name: Chest For Pe Angio; Complete Time: 15:27 [facility] 05/30 15:59 Order name: CONS Physician Consult [facility] 05/30 15:59 Order name: Physical Therapy Consult [facility] 05/30 15:59 Order name: Heart Healthy [facility] 05/30 15:59 Order name: CBC with Automated Diff [facility] 05/30 15:59 Order name: CBC with Automated Diff [facility] 05/30 15:59 Order name: Comprehensive Metabolic Panel [facility] 05/30 15:59 Order name: Comprehensive Metabolic Panel [facility] 05/30 15:59 Order name: Comprehensive Metabolic Panel [facility] 05/30 15:59 Order name: Comprehensive Metabolic Panel [facility] 05/30 12:45 Order name: IV Saline Lock; Complete Time: 14:09 rn 05/30 12:45 Order name: Labs collected and sent; Complete Time: 14:09 rn 05/30 12:45 Order name: O2 Per Protocol; Complete Time: 12:49 rn 05/30 12:45 Order name: O2 Sat Monitoring; Complete Time: 12:49 rn 05/30 14:33 Order name: Lora; Complete Time: 15:35 rn Administered Medications: 15:35 Drug: Lasix (furosemide) 40 mg Route: IVP; Site: left antecubital; ph 19:31 Follow up: Urine output 2000 ml; Response: No adverse reaction ph Disposition Summary: 05/30/22 14:36 Hospitalization Ordered Hospitalization Status: Inpatient Admission rn Provider: Shiva Lantigua rn Location: Telemetry/MedSurg (Inpatient) rn Condition: Stable rn Problem: new rn Symptoms: have improved rn Bed/Room Type: Standard rn Room Assignment: 220(05/30/22 19:04) cg Diagnosis - Unspecified combined systolic (congestive) and diastolic (congestive) heart failure rn - Pleural effusion, not elsewhere classified rn - Dyspnea, unspecified rn Forms: - Medication Reconciliation Form rn - SBAR form rn Signatures: Dispatcher [employer] EDJulio Vargas MD MD rn Hall, Patricia, RN RN ph Garcia, Cindy, RN RN cg Corrections: (The following items were deleted from the chart) 19:04 14:36 rn cg
--- NOTE | 2022-05-30 14:37 | ER ---
Nurse's Notes [facility] Name: Kelly Phillips Age: 87 yrs Sex: Female : 1935 Arrival Date: 05/30/2022 Time: 12:43 Bed 18 Private MD: Diagnosis: Unspecified combined systolic (congestive) and diastolic (congestive) heart failure;Pleural effusion, not elsewhere classified;Dyspnea, unspecified Presentation: 05/30 12:44 Chief complaint: EMS states: Pt c/o chest pain and SOB, recently dx w/ multiple heart ph blockages however stints were not placed d/t a "cancerous tumor" that was found in the chest, room air Spo2 86%, neb tx given, pt w/ audible wheezing upon arrival to ED, spo2 98% room air. Coronavirus screen: Vaccine status: Patient reports receiving the 2nd dose of the covid vaccine. Ebola Screen: No symptoms or risks identified at this time. Initial Sepsis Screen: Does the patient meet any 2 criteria? No. Patient's initial sepsis screen is negative. Does the patient have a suspected source of infection? No. Patient's initial sepsis screen is negative. Risk Assessment: Do you want to hurt yourself or someone else? Patient reports no desire to harm self or others. 12:44 Method Of Arrival: EMS: [facility] ph 12:44 Acuity: JASMINA 2 ph 15:42 Onset of symptoms was May 30, 2022. ph Triage Assessment: 12:47 General: Appears in no apparent distress. uncomfortable, Behavior is calm, cooperative, ph appropriate for age. Pain: Denies pain. Neuro: Level of Consciousness is awake, alert, obeys commands, Oriented to person, place, time, situation. Cardiovascular: Reports shortness of breath, Edema is 3+ to left ankle, left foot, right ankle and right foot. Cardiovascular: Edema is 2+ to left knee, left midcalf, left ankle, right knee, right midcalf and right ankle. Respiratory: Reports shortness of breath at rest on exertion Airway is patent Respiratory effort is labored, Respiratory pattern is tachypnea. GI: No signs and/or symptoms were reported involving the gastrointestinal system. Derm: Skin is intact, Skin is pink, warm \\T\\ dry. Musculoskeletal: Circulation, motion, and sensation intact. Range of motion: intact in all extremities. Historical: - Allergies: 12:47 PENICILLINS; ph - Home Meds: 15:42 amlodipine 5 mg tab 1 tab once daily [Active]; anastrozole 1 mg Oral tab 1 tab once ph daily [Active]; aspirin 81 mg Oral chew 1 tab once daily [Active]; atorvastatin 40 mg oral tab 1 tab once daily [Active]; cyclobenzaprine 10 mg Oral tab 1 tab once daily [Active]; losartan 100 mg Oral tab 1 tab nightly [Active]; memantine 5 mg oral tab 1 tab 2 times per day [Active]; omeprazole 20 mg Oral cpDR 1 cap once daily [Active]; trazodone 50 mg Oral tab 1 tab nightly, PRN [Active]; - PMHx: 12:47 GERD; Hypertensive disorder; ph - PSHx: 12:47 Appendectomy; tumor removal RT breast; ph - Immunization history:: Adult Immunizations unknown. - Social history:: Smoking status: Patient denies any tobacco usage or history of. - Family history:: not pertinent. - Hospitalizations: : No recent hospitalization is reported. Screenin:49 Abuse screen: Denies threats or abuse. Denies injuries from another. Nutritional ph screening: No deficits noted. Tuberculosis screening: No symptoms or risk factors identified. Fall Risk None identified. Assessment: 13:00 General: SEE TRIAGE ASSESSMENT. ph 14:15 Reassessment: Patient appears in no apparent distress at this time. Patient and/or ph family updated on plan of care and expected duration. Pain level reassessed. Patient is alert, oriented x 3, equal unlabored respirations, skin warm/dry/pink. 15:41 Reassessment: Patient appears in no apparent distress at this time. Patient and/or ph family updated on plan of care and expected duration. Pain level reassessed. Patient is alert, oriented x 3, equal unlabored respirations, skin warm/dry/pink. Dr Lantigua at bedside to speak w/ pt. 16:28 Reassessment: Patient appears in no apparent distress at this time. Patient and/or ph family updated on plan of care and expected duration. Pain level reassessed. Patient is alert, oriented x 3, equal unlabored respirations, skin warm/dry/pink. 17:30 Reassessment: Patient appears in no apparent distress at this time. Patient and/or ph family updated on plan of care and expected duration. Pain level reassessed. Patient is alert, oriented x 3, equal unlabored respirations, skin warm/dry/pink. 18:30 Reassessment: Patient appears in no apparent distress at this time. Patient and/or ph family updated on plan of care and expected duration. Pain level reassessed. Patient is alert, oriented x 3, equal unlabored respirations, skin warm/dry/pink. Pt c/o SOB when changing position, Spo2 96% RA, placed on 2L NC for comfort. Vital Signs: 12:44 BP 133 / 64; Pulse 99; Resp 22; Temp 97.8; Pulse Ox 97% on R/A; ph 14:30 BP 128 / 57; Pulse 94; Resp 22; Pulse Ox 97% on R/A; ph 15:39 BP 130 / 61; Pulse 99; Resp 18; Pulse Ox 98% on R/A; ph 16:28 BP 129 / 59; Pulse 94; Resp 24; Pulse Ox 95% on R/A; ph 18:00 BP 123 / 58; Pulse 94; Resp 24; Pulse Ox 99% on 2 lpm NC; ph ED Course: 12:43 Patient arrived in ED. ph 12:43 Julio Rouse MD is Attending Physician. rn 12:43 Margarette Roque RN is Primary Nurse. ph 12:47 Triage completed. ph 12:47 Arm band placed on Patient placed in an exam room, on a stretcher, on classroom monitor, ph on pulse oximetry. 12:49 Patient has correct armband on for positive identification. Placed in gown. Bed in low ph position. Call light in reach. Client placed on continuous cardiac and pulse oximetry monitoring. NIBP monitoring applied. 13:55 XRAY CXR (1 view) In Process Unspecified. EDMS 14:35 Shiva Lantigua MD is Hospitalizing Provider. rn 14:47 Chest For Pe Angio In Process Unspecified. EDMS 15:36 No provider procedures requiring assistance completed. Maintain EMS IV. Dressing ph intact. Good blood return noted. Site clean \\T\\ dry. Gauge \\T\\ site: 20 LAC. IV is patent, with fluids infusing freely, with good blood return, Flushed left antecubital with 5 ml normal saline Patient admitted, IV remains in place. 15:38 Lora cath inserted, using sterile technique, 16 Fr., by pr, balloon inflated, to ph gravity drainage, returned clear yellow urine. Patient tolerated well. Administered Medications: 15:35 Drug: Lasix (furosemide) 40 mg Route: IVP; Site: left antecubital; ph 19:31 Follow up: Urine output 2000 ml; Response: No adverse reaction ph Medication: 12:49 VIS not applicable for this client. ph Output: 19:31 Urine: 2000ml; Total: 2000ml. ph Outcome: 14:36 Decision to Hospitalize by Provider. rn 19:32 Admitted to Med/surg accompanied by nurse, via stretcher, with chart, Report called to [facility] bedside report given 19:32 Condition: stable 19:32 Instructed on the need for admit. 19:33 Patient left the ED. [facility] Signatures: Dispatcher [employer] EDJulio Vargas MD MD rn Hall, Patricia, RN RN ph Mazur, Sarah, RN RN [facility]
--- NOTE | 2022-05-30 14:56 | RAD REPORT ---
EXAM DESCRIPTION: CT - Chest For Pe Angio - 05/30/2022 2:45 pm CLINICAL HISTORY: known cancer, dyspnea, tachypnea COMPARISON: Chest For Pe Angio dated 02/17/2022 TECHNIQUE: Dynamically enhanced 3 mm thick images of the chest were obtained during administration o f approximately 150mL Isovue 370 IV contrast. Coronal and oblique MIP reconstruction images were gene rated and reviewed. Exam utilizes a protocol to evaluate the pulmonary arterial tree. All CT scans are performed using dose optimization technique as appropriate and may include automated exposure control or mA/KV adjustment according to patient size. FINDINGS: No pulmonary emboli are identified. The aorta as imaged shows no acute or suspicious finding. Cardiomegaly is present without pericardial thickening or effusion. Small left-side and moderate right-sided pleural effusions are present. There is atelectasis in each posterior lower lobe. Alveolar infiltrates could potentially be masked. There is is minimal amount of fluid along the minor fissure on the right. Interstitial pattern is prominent, right greater than le ft. No pneumothorax. No mediastinal or hilar suspicious masses. No chest wall masses or abnormal axillary lymphadenopathy. Fluid retention is seen in the subcutaneous fatty tissues IMPRESSION: No pulmonary emboli identified. CHF/volume overload pattern is seen. There is small left-side and moderate right-sided pleural effusi ons with atelectasis. Interstitial edema is also evident with fluid retention in the subcutaneous fatty tissues.
[2022-05-30] MEDS ORDERED: FUROSEMIDE 40 MG/4 ML VIAL ONE (15:08)
--- NOTE | 2022-05-30 16:16 | P.HP ---
Certification for Inpatient Patient admitted to: Inpatient With expected LOS: >2 Midnights Patient will require the following post-hospital care: [facility] Practitioner: I am a practitioner with admitting privileges, knowledge of patient current condition, hospital course, and medical plan of care. 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 She has a history of dementia, diastolic chf and breast cancer. She was in the hospital 2 weeks ago. Had very tight stenosis of her coronary arteries. Was transfered to [facility]. Dr. Putnam was not able to revascularize. She was going to have CABG. However they found nodularities in her omentum. This was present on 05/10. The patient had a biopsy of the mass. Her cardiac surgeon halted plans for a CABG. The patient was then discharged She has been having sob, for the past few days. The patients was also having swelling of the legs. Her niece brought her to the ER. Allergies Penicillins Allergy (Intermediate, Verified 05/10/22 09:20) Itching/Hives/Rash Home Medications: Losartan Potassium [Cozaar] 100 mg PO DAILY WITH BREAKFAST 09/16/16 Omeprazole 20 mg PO DAILY 09/16/16 Anastrozole [Arimidex*] 1 mg PO BEDTIME 02/15/22 Aspirin 81 mg PO DAILY 05/10/22 Memantine HCl [Namenda] 5 mg PO BID 05/10/22 Rosuvastatin [Crestor*] 5 mg PO DAILY 05/10/22 - Past Medical/Surgical History Diabetic: No -: GERD -: HTN -: Rt breast [place] with chemo -: dementia -: right breast biopsy 50 years ago -: cyst removed from ovaries -: appy - Family History Mother -: Heart disease Father -: GI disease - Social History Alcohol use: Yes CD- Drugs: No Caffeine use: Yes Review of Systems 10-point ROS is otherwise unremarkable Respiratory: Shortness of Breath Cardiovascular: Edema (1+) Physical Examination - Physical Exam General: Alert, In no apparent distress HEENT: Atraumatic, PERRLA, Mucous membr. moist/pink, EOMI, Sclerae nonicteric Neck: Supple, 2+ carotid pulse no bruit, No LAD, Without JVD or thyroid abnormality Respiratory: Clear to auscultation bilaterally, Normal air movement, Diminished Cardiovascular: Regular rate/rhythm, Normal S1 S2, Edema (1+) Gastrointestinal: Normal bowel sounds, No tenderness Musculoskeletal: No tenderness Integumentary: No rashes Neurological: Normal gait, Normal speech, Normal strength at 5/5 x4 extr, Normal tone, Normal affect Lymphatics: No axilla or inguinal lymphadenopathy - Studies Laboratory Data (last 24 hrs) 05/30/22 13:45: PT 12.5, INR 1.13, APTT 20.7 L 05/30/22 13:45: WBC 11.3 H, Hgb 7.3 L, Hct 22.9 L, Plt Count 402 05/30/22 13:45: Sodium 130 L, Potassium 4.1, BUN 17, Creatinine 0.86, Glucose 121 H, Magnesium 1.7 L, Total Bilirubin 1.0, AST 23, ALT 22, Alkaline Phosphatase 57, Lipase 95 Assessment and Plan - Problems (Diagnosis) (1) CHF exacerbation Current Visit: No Status: Acute Plan: will admit the patient for diuresis. consult Dr. Coley. Will monitor I's and Os Qualifiers: Heart failure type: diastolic Qualified Code(s): I50.33 - Acute on chronic diastolic (congestive) heart failure (2) Omental mass Current Visit: Yes Status: Chronic Plan: will need to get the records from [facility]. Will refer to Dr. Rausch as an out patient. Will then refer to Dr. Rausch. She needs social service technician to arrange for a hospital bed (3) CAD (coronary artery disease) Current Visit: No Status: Chronic Qualifiers: Coronary Disease-Associated Artery/Lesion type: [place] artery (4) Dementia Current Visit: No Status: Chronic Plan: restart mementaine and aricept Qualifiers: Dementia type: Alzheimer's (5) HTN (hypertension) Current Visit: No Status: Chronic Plan: restart losartan. Will adjust as necessary Qualifiers: Discharge Plan: Home Plan to discharge in: 48 Hours - Advance Directives Does patient have a Living Will: No Does patient have a Durable POA for Healthcare: No - Code Status/Comfort Care Code Status Assessed: No Code Status: Full Code Critical Care: No Time Spent Managing Pts Care (In Minutes): 45
[2022-05-30] MEDS ORDERED: ENOXAPARIN 40 MG/0.4 ML SQ SCH (17:00)
[2022-05-30 19:48] VITALS: BMI 31.2
[2022-05-30] MEDS ORDERED: MEMANTINE HCL 5 MG PO SCH (21:00)
[2022-05-30] MEDS: ANASTROZOLE 1 MG TAB PO SCH (21:00)
[2022-05-30] MEDS: DONEPEZIL HCL 5 MG TAB PO SCH (21:36)
[2022-05-30] MEDS: MEMANTINE HCL 10 MG TABLET PO SCH (21:37)
[2022-05-31] MEDS ORDERED: MORPHINE 2 MG/ML SYR IV ONE (06:11)
[2022-05-31] MEDS ORDERED: HYDRALAZINE HCL 20 MG/ML VIAL IV ONE (06:26)
[2022-05-31] MEDS ORDERED: HYDRALAZINE HCL 20 MG/ML VIAL ONE (06:35)
[2022-05-31] MEDS ORDERED: ALBUTEROL 2.5 MG/3 ML NEB SOL NEB PRN ×2 (06:35→14:00)
[2022-05-31] MEDS ORDERED: IPRATROPIUM BROM 0.5MG/2.5ML NEB PRN ×2 (06:35→14:00)
[2022-05-31] MEDS ORDERED: IPRATROPIUM BROM 0.5MG/2.5ML ONE (06:45)
[2022-05-31] MEDS ORDERED: ALBUTEROL 2.5 MG/3 ML NEB SOL ONE (06:45)
[2022-05-31] MEDS: FUROSEMIDE 40 MG/4 ML VIAL IV ONE (06:53)
[2022-05-31 07:16] LABS: Arterial Blood Carboxyhemoglob 1.6 % (0-1.5); Blood Gas Oxyhemoglobin 93.8 % (94-97); Blood O2 Saturation 95.4 % (92-98.5)
[2022-05-31 07:29] LABS: Absolute Lymphocytes (CBC) 1.3 K/uL (0.7-4.9); Hematocrit 22.9 % (36.0-45.0); Lymphocytes % 19.2 % (15.3-44.8); MCV 72.9 fL (80-100); RBC Red Blood Cell Count 3.14 M/uL (3.86-4.86)
[2022-05-31 07:40] LABS: Potassium 3.8 mmol/L (3.5-5.1)
[2022-05-31 07:41] LABS: Albumin 3.2 g/dL (3.4-5.0); Bilirubin Total 1.3 mg/dL (0.2-1.0); Protein, Total 6.3 g/dL (6.4-8.2)
[2022-05-31] MEDS ORDERED: HOME MED 1 EA UNK (Losartan Potassium [Cozaar] 100 MG Tablet) PO SCH (08:00)
[2022-05-31] MEDS ORDERED: HYDRALAZINE HCL 20 MG/ML VIAL IV PRN (08:12)
--- NOTE | 2022-05-31 08:16 | P.PN ---
Subjective Date of Service: 05/31/22 Primary Care Provider: Memo Gaston Chief Complaint: CHF exacerbation Subjective: Worsening (sob with rales this morning) Review of Systems 10-point ROS is otherwise unremarkable Respiratory: Shortness of Breath Physical Examination - Vital Signs Temperature: 97.9 F Blood Pressure: 156/88 Pulse: 115 Respirations: 22 Pulse Ox (%): 98 - Physical Exam General: Alert, In no apparent distress HEENT: Atraumatic, PERRLA, EOMI Neck: Supple, JVD not distended Respiratory: Clear to auscultation bilaterally, Normal air movement Cardiovascular: Regular rate/rhythm, Normal S1 S2 Gastrointestinal: Normal bowel sounds, No tenderness Musculoskeletal: No tenderness Integumentary: No rashes Neurological: Normal speech, Normal tone, Normal affect Lymphatics: No axilla or inguinal lymphadenopathy - Studies Laboratory Data (last 24 hrs) 05/30/22 13:45: PT 12.5, INR 1.13, APTT 20.7 L 05/30/22 13:45: WBC 11.3 H, Hgb 7.3 L, Hct 22.9 L, Plt Count 402 05/30/22 13:45: Sodium 130 L, Potassium 4.1, BUN 17, Creatinine 0.86, Glucose 121 H, Magnesium 1.7 L, Total Bilirubin 1.0, AST 23, ALT 22, Alkaline Phosphatase 57, Lipase 95 Assessment And Plan - Current Problems (Diagnosis) (1) CHF exacerbation Current Visit: No Status: Acute Plan: will admit the patient for diuresis. consult Dr. Coley. Will monitor I's and Os 05/31 Patient had hypoxia, sob and rales this morning. Started her on morphine. Increased the lasix and started her on a bipap. Currently resting comfortably. The patient will stay on the bipap till the furosemide does its job Qualifiers: Heart failure type: diastolic Qualified Code(s): I50.33 - Acute on chronic diastolic (congestive) heart failure (2) Omental mass Current Visit: Yes Status: Chronic Plan: will need to get the records from [facility]. Will refer to Dr. Rausch as an out patient. Will then refer to Dr. Rausch. She needs social insurance analyst to arrange for a hospital bed 05/31 nursing to get a medical release of info for the patient (3) CAD (coronary artery disease) Current Visit: No Status: Chronic Qualifiers: Coronary Disease-Associated Artery/Lesion type: [place] artery (4) Dementia Current Visit: No Status: Chronic Plan: restart mementaine and aricept Qualifiers: Dementia type: Alzheimer's (5) HTN (hypertension) Current Visit: No Status: Chronic Plan: restart losartan. Will adjust as necessary Qualifiers: Discharge Plan: Home Plan to discharge in: 48 Hours - Code Status/Comfort Care Code Status Assessed: No Critical Care: No Time Spent Managing PTS Care (In Minutes): 30
--- NOTE | 2022-05-31 08:22 | EKG ---
Test Date: 2022-05-30 Test Time: 13:29:05 Physician President: PH MEASUREMENT RESULTS: Intervals: Rate: 94 IN: 180 QRSD: 136 QT: 406 QTc: 507 [place]: P: 66 IN: 180 QRS: -33 T: 127 INTERPRETIVE STATEMENTS: Normal sinus rhythm Left axis deviation Nonspecific intraventricular block Cannot rule out Anteroseptal infarct, age undetermined T wave abnormality, consider lateral ischemia Abnormal ECG Compared to ECG 05/10/2022 03:55:33 Left-axis deviation now present Myocardial infarct finding now present T-wave abnormality now present Possible ischemia now present Sinus tachycardia no longer present Left bundle-branch block no longer present Electronically Signed On 05-31-22 08:18:33 CDT by Carrillo Coley
[2022-05-31] MEDS: FUROSEMIDE 40 MG/4 ML VIAL IV SCH ×2 (08:57→17:06)
[2022-05-31] MEDS: LOSARTAN POTASSIUM 50 MG TABLET PO SCH (08:58)
[2022-05-31] MEDS: ASPIRIN 81 MG CHEWABLE TABLET PO SCH (08:58)
[2022-05-31] MEDS: PANTOPRAZOLE 40MG TABLET PO SCH (08:58)
[2022-05-31] MEDS: HOME MED 1 EA UNK [ROSUVASTATIN 5 MG TAB] PO SCH (08:59)
[2022-05-31] MEDS: MEMANTINE HCL 10 MG TABLET PO SCH ×2 (08:59→21:06)
[2022-05-31] MEDS ORDERED: ROSUVASTATIN 10 MG TAB PO SCH (09:00)
[2022-05-31] MEDS ORDERED: FUROSEMIDE 40 MG/4 ML VIAL IV SCH (09:00)
[2022-05-31] MEDS ORDERED: HOME MED 1 EA UNK (Omeprazole [Omeprazole] 20 MG Tablet.Dr) PO SCH (09:00)
--- NOTE | 2022-05-31 13:52 | CON ---
Date of Consultation: 05/31/2022 Reason For Consultation: Congestive heart failure. History Of Present Illness: Ms. Phillips is an 87-year-old woman, who recently was in the hospital f or congestive heart failure and non-STEMI. She underwent left heart catheterization, was found to ellison ve severe coronary artery disease. Dr. Putnam had transferred her to [place] and they attempted to d o an intervention; however, the LAD could not be crossed, so they referred her for the bypass surgery . However, during her workup, she was found to have what sounds like a metastatic cancer by CT scans . 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 So, she has been treated medically and she comes into the hospital with shortness of breath on 05/30/2022. Denied chest pain. Denied nausea, vomiting. Has had some diaphoresis and had some shortness of breath. Has had some pedal edema, orthopnea, but no palpitatio n or syncope or fever or chills. Allergies: TO PENICILLIN. Review of Systems: Negative. Social History: Negative. Family History: Noncontributory. Medications: At home include amlodipine, aspirin, Lipitor, losartan, memantine, omeprazole, and traz odone. 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 Physical Examination: Vital Signs: Stable. She was afebrile. HEENT: Negative. Neck: Supple with no bruit. Chest: Clear to auscultation and percussion. Cardiac: Revealed a regular rhythm and rate with S4 gallops. Abdomen: Obese, but benign. Extremities: Revealed 2+ edema to the knee. Diagnostic Data: Chest x-ray showed congestive heart failure. CT of the thorax showed no pulmonary embolus, bilateral small effusions. EKG showed normal sinus rhythm with nonspecific intraventricular conduction delay and possible left ventricular hypertrophy. Impression And Plan: 1.Severe coronary artery disease. 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 2.Acute on chronic diastolic congestive heart failure. Her ejection fraction was 60% in April 2022. No reason to repeat that. 3.Hypertension. 4.Gastroesophageal reflux disease. Mrs. Phillips's present regimen include aspirin, Lovenox, Lasix, hydralazine, losartan. She is on appropriate therapy in that regard. We certainly can be a little bit more aggressive as far as her Lasix concern, consider use of a low-dose beta-nate that may hel p her as far as her coronary artery disease as well. I think she needs to have an extensive GI anette p to find out what her malignancy is from and maybe try to get biopsy results from [place], but I zuleyka l discuss the case further with Dr. Lantigua. From a cardiac standpoint, I think we need to continue La six, hydralazine, losartan, add a low-dose beta-nate. No further cardiac workup at this point. KOBE/MARGARITA Voice ID: [id number] Report ID: [id number]
[2022-05-31] MEDS: ANASTROZOLE 1 MG TAB PO SCH (21:06)
[2022-05-31] MEDS: DONEPEZIL HCL 5 MG TAB PO SCH (21:07)
[2022-06-01] MEDS: MORPHINE 2 MG/ML SYR IM PRN ×2 (06:23→17:14)
[2022-06-01 06:49] LABS: Lymphocytes % 13.9 % (15.3-44.8); MCV 71.6 fL (80-100); MPV 6.9 fL (7.6-11.3); RBC Red Blood Cell Count 2.84 M/uL (3.86-4.86)
[2022-06-01 06:51] LABS: Hematocrit 20.3 % (36.0-45.0)
[2022-06-01 07:08] LABS: Albumin 2.8 g/dL (3.4-5.0); Bilirubin Total 1.2 mg/dL (0.2-1.0); Potassium 3.3 mmol/L (3.5-5.1); Protein, Total 5.8 g/dL (6.4-8.2)
[2022-06-01] MEDS: PANTOPRAZOLE 40MG TABLET PO SCH (08:23)
[2022-06-01] MEDS: ASPIRIN 81 MG CHEWABLE TABLET PO SCH (08:23)
[2022-06-01] MEDS: MEMANTINE HCL 10 MG TABLET PO SCH ×2 (08:23→21:14)
[2022-06-01] MEDS: LOSARTAN POTASSIUM 50 MG TABLET PO SCH (08:23)
[2022-06-01] MEDS: FUROSEMIDE 40 MG/4 ML VIAL IV SCH ×2 (08:24→17:12)
--- NOTE | 2022-06-01 08:32 | P.PN ---
Subjective Date of Service: 06/01/22 Primary Care Provider: Memo Gaston Chief Complaint: CHF exacerbation Subjective: No new changes family wants dnr and snf placement Review of Systems 10-point ROS is otherwise unremarkable General: Other (anxious) Physical Examination - Vital Signs Temperature: 98.5 F Blood Pressure: 127/67 Pulse: 83 Respirations: 20 Pulse Ox (%): 97 - Physical Exam General: Alert, In no apparent distress HEENT: Atraumatic, PERRLA, EOMI Neck: Supple, JVD not distended Respiratory: Clear to auscultation bilaterally, Normal air movement Cardiovascular: Regular rate/rhythm, Normal S1 S2 Gastrointestinal: Normal bowel sounds, No tenderness Musculoskeletal: No tenderness Integumentary: No rashes Neurological: Normal speech, Normal tone, Normal affect Lymphatics: No axilla or inguinal lymphadenopathy Assessment And Plan - Current Problems (Diagnosis) (1) Anemia Current Visit: Yes Status: Acute Plan: will order 2 units. check iron studies before transfusion. Give 40mg of lasix between units. Qualifiers: Anemia type: iron deficiency Iron deficiency anemia type: unspecified iron deficiency Qualified Code(s): D50.9 - Iron deficiency anemia, unspecified (2) CHF exacerbation Current Visit: No Status: Acute Plan: will admit the patient for diuresis. consult Dr. Coley. Will monitor I's and Os 05/31 Patient had hypoxia, sob and rales this morning. Started her on morphine. Increased the lasix and started her on a bipap. Currently resting comfortably. The patient will stay on the bipap till the furosemide does its job Qualifiers: Heart failure type: diastolic Qualified Code(s): I50.33 - Acute on chronic diastolic (congestive) heart failure (3) Omental mass Current Visit: Yes Status: Chronic Plan: will need to get the records from [facility]. Will refer to Dr. Rausch as an out patient. Will then refer to Dr. Rausch. She needs group social worker to arrange for a hospital bed 05/31 nursing to get a medical release of info for the patient (4) CAD (coronary artery disease) Current Visit: No Status: Chronic Qualifiers: Coronary Disease-Associated Artery/Lesion type: [place] artery (5) Dementia Current Visit: No Status: Chronic Plan: restart mementaine and aricept Qualifiers: Dementia type: Alzheimer's (6) HTN (hypertension) Current Visit: No Status: Chronic Plan: restart losartan. Will adjust as necessary Qualifiers: (7) Anxiety Current Visit: Yes Status: Acute Plan: start escitalopram and give 3 days of ambien to let her sleep (8) DNR (do not resuscitate) Current Visit: Yes Status: Acute Plan: will work on snf placement and change her to dnr Discharge Plan: LTAC Plan to discharge in: Greater than 2 days - Code Status/Comfort Care Code Status Assessed: Yes Code Status: Do Not Attempt Resuscitat Physician Review: Patient Assessed, Agree with Above Assessment and Plan Critical Care: No Time Spent Managing PTS Care (In Minutes): 30
[2022-06-01] MEDS: HOME MED 1 EA UNK [ROSUVASTATIN 5 MG TAB] PO SCH (09:00)
[2022-06-01] MEDS: ESCITALOPRAM 20 MG TAB PO SCH (11:59)
[2022-06-01] MEDS ORDERED: PNEUMOCOCCAL VACCINE 0.5 ML IMVAC ONE (15:00)
[2022-06-01] MEDS ORDERED: ENOXAPARIN 40 MG/0.4 ML SQ SCH (20:00)
[2022-06-01] MEDS: LEVALBUTEROL 1.25 MG/3 ML NEB NEB SCH (20:10)
[2022-06-01] MEDS: ZOLPIDEM TARTRATE 5 MG TABLET PO SCH (21:14)
[2022-06-01] MEDS: carvediloL 3.125 MG TAB PO SCH (21:14)
[2022-06-01] MEDS: DONEPEZIL HCL 5 MG TAB PO SCH (21:14)
[2022-06-01] MEDS: ANASTROZOLE 1 MG TAB PO SCH (21:16)
[2022-06-02] MEDS: LEVALBUTEROL 1.25 MG/3 ML NEB NEB SCH ×3 (01:40→13:38)
[2022-06-02] MEDS ORDERED: NA CHLORIDE 0.9% 250 ML ONE ×2 (04:28→09:46)
[2022-06-02] MEDS: MORPHINE 2 MG/ML SYR IM PRN (05:24)
[2022-06-02] MEDS: FUROSEMIDE 40 MG/4 ML VIAL IV ONE (07:38)
--- NOTE | 2022-06-02 08:17 | P.PN ---
Subjective Date of Service: 06/02/22 Primary Care Provider: Memo Gaston Chief Complaint: CHF exacerbation Subjective: Worsening family wants dnr and snf placement Review of Systems General: Weakness Respiratory: SOB with Excertion Physical Examination - Vital Signs Temperature: 99.0 F Blood Pressure: 118/52 Pulse: 72 Respirations: 19 Pulse Ox (%): 96 - Physical Exam General: Alert, In no apparent distress HEENT: Atraumatic, PERRLA, EOMI Neck: Supple, JVD not distended Respiratory: Clear to auscultation bilaterally, Normal air movement Cardiovascular: Regular rate/rhythm, Normal S1 S2 Gastrointestinal: Normal bowel sounds, No tenderness Musculoskeletal: No tenderness Integumentary: No rashes Neurological: Normal speech, Normal tone, Normal affect Lymphatics: No axilla or inguinal lymphadenopathy Assessment And Plan - Current Problems (Diagnosis) (1) Anemia Current Visit: Yes Status: Acute Plan: will order 2 units. check iron studies before transfusion. Give 40mg of lasix between units. Qualifiers: Anemia type: iron deficiency Iron deficiency anemia type: unspecified iron deficiency Qualified Code(s): D50.9 - Iron deficiency anemia, unspecified (2) CHF exacerbation Current Visit: No Status: Acute Plan: will admit the patient for diuresis. consult Dr. Coley. Will monitor I's and Os 05/31 Patient had hypoxia, sob and rales this morning. Started her on morphine. Increased the lasix and started her on a bipap. Currently resting comfortably. The patient will stay on the bipap till the furosemide does its job Qualifiers: Heart failure type: diastolic Qualified Code(s): I50.33 - Acute on chronic diastolic (congestive) heart failure (3) Omental mass Current Visit: Yes Status: Chronic Plan: will need to get the records from [facility]. Will refer to Dr. Rausch as an out patient. Will then refer to Dr. Rausch. She needs social work job titles to arrange for a hospital bed 05/31 nursing to get a medical release of info for the patient (4) CAD (coronary artery disease) Current Visit: No Status: Chronic Qualifiers: Coronary Disease-Associated Artery/Lesion type: [place] artery (5) Dementia Current Visit: No Status: Chronic Plan: restart mementaine and aricept Qualifiers: Dementia type: Alzheimer's (6) HTN (hypertension) Current Visit: No Status: Chronic Plan: restart losartan. Will adjust as necessary Qualifiers: (7) Anxiety Current Visit: Yes Status: Acute Plan: start escitalopram and give 3 days of ambien to let her sleep (8) DNR (do not resuscitate) Current Visit: Yes Status: Acute Plan: will work on snf placement and change her to dnr (9) D-dimer, elevated Current Visit: Yes Status: Acute Plan: will start her on xarelto. check a v/q scan and doppler of the legs. Discharge Plan: LTAC Plan to discharge in: Greater than 2 days - Code Status/Comfort Care Code Status Assessed: No Physician Review: Patient Assessed, Agree with Above Assessment and Plan Critical Care: No Time Spent Managing PTS Care (In Minutes): 30
[2022-06-02] MEDS: LOSARTAN POTASSIUM 50 MG TABLET PO SCH (08:47)
[2022-06-02] MEDS: carvediloL 3.125 MG TAB PO SCH ×2 (08:47→21:38)
[2022-06-02] MEDS: ASPIRIN 81 MG CHEWABLE TABLET PO SCH (08:48)
[2022-06-02] MEDS: ESCITALOPRAM 20 MG TAB PO SCH (08:48)
[2022-06-02] MEDS: MEMANTINE HCL 10 MG TABLET PO SCH ×2 (08:48→21:38)
[2022-06-02] MEDS: PANTOPRAZOLE 40MG TABLET PO SCH (08:49)
[2022-06-02] MEDS: FUROSEMIDE 40 MG/4 ML VIAL IV SCH ×2 (08:49→17:00)
[2022-06-02] MEDS: HOME MED 1 EA UNK [ROSUVASTATIN 5 MG TAB] PO SCH (09:00)
[2022-06-02] MEDS ORDERED: ENOXAPARIN 40 MG/0.4 ML SQ SCH ×3 (09:00→17:00)
--- NOTE | 2022-06-02 10:00 | RAD REPORT ---
EXAM DESCRIPTION: USExtrem Venous W Compress Bil06/02/2022 9:51 am CLINICAL HISTORY: Leg swelling COMPARISON: 2017 FINDINGS: The common femoral, superficial femoral, popliteal and posterior tibial veins bilaterally are compressible and demonstrate augmentation. Doppler demonstrates good flow. 1.7 centimeter left Rollins's cyst Grayscale, color and spectral analysis performed on all vessels IMPRESSION: No evidence of deep venous thrombosis involving either lower extremity.
--- NOTE | 2022-06-02 11:01 | RAD REPORT ---
EXAM DESCRIPTION: NM - Vent Perfusion VQ Scan - 06/02/2022 10:27 am CLINICAL HISTORY: Shortness of breath COMPARISON: Chest x-ray June 02, 2022 TECHNIQUE: 20.8 Mci Xe133 was administered by inhalation. First breath, equilibrium, and washout images of the lungs obtained 6.9 millicuries Technetium-99 MAA was administered intravenously. Anterior, posterior, lateral and ob lique views of the lungs were taken. FINDINGS: Perfusion images demonstrate a linear defect involving the medial right lung which corresp onds to fluid within the fissure. Otherwise there are no mismatched perfusion and ventilation defects. IMPRESSION: The patient has a low probability for a pulmonary embolus
--- NOTE | 2022-06-02 11:14 | RAD REPORT ---
EXAM DESCRIPTION: Melinda Single View06/02/2022 10:39 am CLINICAL HISTORY: Shortness of breath COMPARISON: May 30, 2022 FINDINGS: Small to moderate bilateral pleural effusions right greater than left Mild to moderate bilateral pulmonary opacities probably pulmonary edema Cardiomegaly
[2022-06-02] MEDS ORDERED: RIVAROXABAN 20 MG TABLET PO SCH (17:00)
[2022-06-02] MEDS ORDERED: LEVALBUTEROL 1.25 MG/3 ML NEB NEB PRN (17:54)
[2022-06-02] MEDS: ANASTROZOLE 1 MG TAB PO SCH (21:37)
[2022-06-02] MEDS: ZOLPIDEM TARTRATE 5 MG TABLET PO SCH (21:38)
[2022-06-02] MEDS: DONEPEZIL HCL 5 MG TAB PO SCH (21:38)
[2022-06-03 06:43] LABS: Absolute Lymphocytes (CBC) 0.7 K/uL (0.7-4.9); Hematocrit 25.6 % (36.0-45.0); Lymphocytes % 9.3 % (15.3-44.8); MCV 74.2 fL (80-100); MPV 6.8 fL (7.6-11.3); RBC Red Blood Cell Count 3.45 M/uL (3.86-4.86)
[2022-06-03 07:06] LABS: Albumin 2.9 g/dL (3.4-5.0); Bilirubin Total 1.5 mg/dL (0.2-1.0); Potassium 3.4 mmol/L (3.5-5.1); Protein, Total 6.1 g/dL (6.4-8.2)
--- NOTE | 2022-06-03 08:12 | P.PN ---
Subjective Date of Service: 06/03/22 Primary Care Provider: Memo Gaston Chief Complaint: CHF exacerbation Subjective: Improving family wants dnr and snf placement Review of Systems 10-point ROS is otherwise unremarkable Physical Examination - Vital Signs Temperature: 97.2 F Blood Pressure: 115/52 Pulse: 71 Respirations: 19 Pulse Ox (%): 97 - Physical Exam General: Alert, In no apparent distress HEENT: Atraumatic, PERRLA, EOMI Neck: Supple, JVD not distended Respiratory: Clear to auscultation bilaterally, Normal air movement Cardiovascular: Regular rate/rhythm, Normal S1 S2 Gastrointestinal: Normal bowel sounds, No tenderness Musculoskeletal: No tenderness Integumentary: No rashes Neurological: Normal speech, Normal tone, Normal affect Lymphatics: No axilla or inguinal lymphadenopathy Assessment And Plan - Current Problems (Diagnosis) (1) Anemia Current Visit: Yes Status: Acute Plan: will order 2 units. check iron studies before transfusion. Give 40mg of lasix between units. 06/03 check an occult blood on the patient. will need to order a reticulocyte count in a few weeks Qualifiers: Anemia type: iron deficiency Iron deficiency anemia type: unspecified iron deficiency Qualified Code(s): D50.9 - Iron deficiency anemia, unspecified (2) CHF exacerbation Current Visit: No Status: Acute Plan: will admit the patient for diuresis. consult Dr. Coley. Will monitor I's and Os 05/31 Patient had hypoxia, sob and rales this morning. Started her on morphine. Increased the lasix and started her on a bipap. Currently resting comfortably. The patient will stay on the bipap till the furosemide does its job Qualifiers: Heart failure type: diastolic Qualified Code(s): I50.33 - Acute on chronic diastolic (congestive) heart failure (3) Omental mass Current Visit: Yes Status: Chronic Plan: will need to get the records from [facility]. Will refer to Dr. Rausch as an out patient. Will then refer to Dr. Rausch. She needs neonatal social worker to arrange for a hospital bed 06/02 Not able to get the results from [facility] (4) CAD (coronary artery disease) Current Visit: No Status: Chronic Qualifiers: Coronary Disease-Associated Artery/Lesion type: [place] artery (5) Dementia Current Visit: No Status: Chronic Plan: restart mementaine and aricept Qualifiers: Dementia type: Alzheimer's (6) HTN (hypertension) Current Visit: No Status: Chronic Plan: restart losartan. Will adjust as necessary Qualifiers: (7) DNR (do not resuscitate) Current Visit: Yes Status: Acute Plan: will work on snf placement and change her to dnr Discharge Plan: LTAC Plan to discharge in: 48 Hours - Code Status/Comfort Care Code Status Assessed: No Physician Review: Patient Assessed, Agree with Above Assessment and Plan Critical Care: No Time Spent Managing PTS Care (In Minutes): 20
[2022-06-03] MEDS: ASPIRIN 81 MG CHEWABLE TABLET PO SCH (08:48)
[2022-06-03] MEDS: LOSARTAN POTASSIUM 50 MG TABLET PO SCH (08:48)
[2022-06-03] MEDS: ESCITALOPRAM 20 MG TAB PO SCH (08:48)
[2022-06-03] MEDS: PANTOPRAZOLE 40MG TABLET PO SCH (08:48)
[2022-06-03] MEDS: carvediloL 3.125 MG TAB PO SCH ×2 (08:50→20:29)
[2022-06-03] MEDS: HOME MED 1 EA UNK [ROSUVASTATIN 5 MG TAB] PO SCH (08:50)
[2022-06-03] MEDS: MEMANTINE HCL 10 MG TABLET PO SCH ×2 (08:50→20:28)
[2022-06-03] MEDS: ENOXAPARIN 30 MG/0.3 ML SQ SCH (16:05)
[2022-06-03] MEDS: ANASTROZOLE 1 MG TAB PO SCH (20:28)
[2022-06-03] MEDS: DONEPEZIL HCL 5 MG TAB PO SCH (20:30)
[2022-06-03] MEDS: ZOLPIDEM TARTRATE 5 MG TABLET PO SCH (20:30)
[2022-06-04 06:32] LABS: Absolute Lymphocytes (CBC) 0.8 K/uL (0.7-4.9); Hematocrit 23.6 % (36.0-45.0); Lymphocytes % 12.9 % (15.3-44.8); MCV 74.8 fL (80-100); RBC Red Blood Cell Count 3.16 M/uL (3.86-4.86)
[2022-06-04 06:48] LABS: Albumin 2.7 g/dL (3.4-5.0); Bilirubin Total 1.2 mg/dL (0.2-1.0); Potassium 3.6 mmol/L (3.5-5.1); Protein, Total 5.9 g/dL (6.4-8.2)
[2022-06-04] MEDS ORDERED: POTASSIUM CL SA 10 MEQ TAB PO ONE (08:05)
[2022-06-04] MEDS: HOME MED 1 EA UNK [ROSUVASTATIN 5 MG TAB] PO SCH (09:00)
[2022-06-04] MEDS: ESCITALOPRAM 20 MG TAB PO SCH (09:45)
[2022-06-04] MEDS: PANTOPRAZOLE 40MG TABLET PO SCH (09:46)
[2022-06-04] MEDS: LOSARTAN POTASSIUM 50 MG TABLET PO SCH (09:46)
[2022-06-04] MEDS: ASPIRIN 81 MG CHEWABLE TABLET PO SCH (09:46)
[2022-06-04] MEDS: MEMANTINE HCL 10 MG TABLET PO SCH ×2 (09:46→21:02)
[2022-06-04] MEDS: carvediloL 3.125 MG TAB PO SCH ×2 (09:46→21:03)
--- NOTE | 2022-06-04 10:04 | PN ---
Date of Progress Note: 06/01/2022 Her last blood pressure was 101/141, her pulse is 83, her O2 saturation is 97% on 3 L of nasal cannul a and still getting facial BiPAP along with that. She continues to have shortness of breath. She is on Lasix, aspirin, Lovenox, losartan. I suggested a low dose carvedilol, which was started at 3.25 b.i.d. We are still awaiting detailed records from [place] regarding her possible metastatic cancer to the omentum. I personally agree with her present regimen. She is a do not resuscitate. She is [address] Lantigua is planning to send her to a intermediate facility. KOBE/MARGARITA Voice ID: [id number] Report ID: [id number]
--- NOTE | 2022-06-04 11:32 | PN ---
Date of Progress Note: 06/02/2022 Ms. Phillips has severe coronary artery disease that had failed intervention. The surgery was cancel ed because of metastatic cancer of unknown primary. Results are still pending in that regard from [facility]. She has a normal ejection fraction. She has chronic diastolic congestive heart failure. She is now on beta-blockers, Lasix which is really the mainstay of therapy. Her vital signs are stable. She remained with adequate O2 saturations without BiPAP with an O2 saturation of 97% on 3 L. Her c reatinine is 1.50. Her hemoglobin 8.5. There is a plan for halfway facility transfer while we await her final results from [facility]. The patient should probably be evaluated by Oncology and [facility] to see if we can get some more details regarding her cancer. She is presently on carvedilol, furosemide, donepezil, aspirin. She is on inhaler. She is on losartan. She is on jeny ntine, pantoprazole. I will be available for questions if the need arises. KOBE/MARGARITA Voice ID: [id number] Report ID: [id number]
--- NOTE | 2022-06-04 12:10 | P.PN ---
Subjective Date of Service: 06/04/22 Primary Care Provider: Memo Gaston Chief Complaint: CHF exacerbation Patient has sob with walking to the bathroom Review of Systems 10-point ROS is otherwise unremarkable Respiratory: SOB with Excertion Physical Examination - Vital Signs Temperature: 98.4 F Blood Pressure: 136/63 Pulse: 74 Respirations: 20 Pulse Ox (%): 97 - Physical Exam General: Alert, In no apparent distress HEENT: Atraumatic, PERRLA, EOMI Neck: Supple, JVD not distended Respiratory: Clear to auscultation bilaterally, Normal air movement Cardiovascular: Regular rate/rhythm, Normal S1 S2 Gastrointestinal: Normal bowel sounds, No tenderness Musculoskeletal: No tenderness Integumentary: No rashes Neurological: Normal speech, Normal tone, Normal affect Lymphatics: No axilla or inguinal lymphadenopathy Assessment And Plan - Current Problems (Diagnosis) (1) CHF exacerbation Current Visit: No Status: Acute Plan: will admit the patient for diuresis. consult Dr. Coley. Will monitor I's and Os 06/04 creatine has improved. Will restart once daily lasix Qualifiers: Heart failure type: diastolic Qualified Code(s): I50.33 - Acute on chronic diastolic (congestive) heart failure (2) Anemia Current Visit: Yes Status: Acute Plan: will order 2 units. check iron studies before transfusion. Give 40mg of lasix between units. 06/04 check an occult blood on the patient. stop scheduled hb draws Qualifiers: Anemia type: iron deficiency Iron deficiency anemia type: unspecified iron deficiency Qualified Code(s): D50.9 - Iron deficiency anemia, unspecified (3) Omental mass Current Visit: Yes Status: Chronic Plan: will need to get the records from [facility]. Will refer to Dr. Rausch as an out patient. Will then refer to Dr. Rausch. She needs manager social responsibility to arrange for a hospital bed 06/02 Not able to get the results from [facility] (4) CAD (coronary artery disease) Current Visit: No Status: Chronic Qualifiers: Coronary Disease-Associated Artery/Lesion type: [place] artery (5) Dementia Current Visit: No Status: Chronic Plan: restart mementaine and aricept Qualifiers: Dementia type: Alzheimer's (6) HTN (hypertension) Current Visit: No Status: Chronic Plan: restart losartan. Will adjust as necessary Qualifiers: (7) DNR (do not resuscitate) Current Visit: Yes Status: Acute Plan: will work on snf placement and change her to dnr Discharge Plan: LTAC Plan to discharge in: 48 Hours - Code Status/Comfort Care Code Status Assessed: No Physician Review: Patient Assessed, Agree with Above Assessment and Plan Critical Care: No Time Spent Managing PTS Care (In Minutes): 20
[2022-06-04] MEDS: ENOXAPARIN 30 MG/0.3 ML SQ SCH (17:49)
[2022-06-04] MEDS: ANASTROZOLE 1 MG TAB PO SCH (21:02)
[2022-06-04] MEDS: DONEPEZIL HCL 5 MG TAB PO SCH (21:03)
[2022-06-04] MEDS ORDERED: MORPHINE 2 MG/ML SYR IV PRN (23:10)
[2022-06-04] MEDS: MORPHINE 2 MG/ML SYR IM PRN (23:18)
[2022-06-05 06:13] LABS: Absolute Lymphocytes (CBC) 0.9 K/uL (0.7-4.9); Hematocrit 27.3 % (36.0-45.0); Lymphocytes % 11.4 % (15.3-44.8); MCV 75.7 fL (80-100); RBC Red Blood Cell Count 3.61 M/uL (3.86-4.86)
[2022-06-05 06:30] LABS: Albumin 2.8 g/dL (3.4-5.0); Bilirubin Total 1.1 mg/dL (0.2-1.0); Potassium 3.8 mmol/L (3.5-5.1); Protein, Total 6.1 g/dL (6.4-8.2)
[2022-06-05] MEDS ORDERED: POTASSIUM CL SA 10 MEQ TAB PO ONE (09:00)
[2022-06-05] MEDS: HOME MED 1 EA UNK [ROSUVASTATIN 5 MG TAB] PO SCH (09:00)
[2022-06-05] MEDS: FUROSEMIDE 40 MG/4 ML VIAL IV SCH (09:23)
[2022-06-05] MEDS: carvediloL 3.125 MG TAB PO SCH ×2 (09:24→20:23)
[2022-06-05] MEDS: LOSARTAN POTASSIUM 50 MG TABLET PO SCH (09:24)
[2022-06-05] MEDS: ESCITALOPRAM 20 MG TAB PO SCH (09:24)
[2022-06-05] MEDS: ASPIRIN 81 MG CHEWABLE TABLET PO SCH (09:25)
[2022-06-05] MEDS: PANTOPRAZOLE 40MG TABLET PO SCH (09:25)
[2022-06-05] MEDS: MEMANTINE HCL 10 MG TABLET PO SCH ×2 (09:25→20:22)
--- NOTE | 2022-06-05 12:37 | P.PN ---
Subjective Date of Service: 06/05/22 Primary Care Provider: Memo Gaston Chief Complaint: CHF exacerbation Subjective: No new changes Patient has cp last night. The patient respond very well to morphine and was able to sleep the rest of the night Review of Systems 10-point ROS is otherwise unremarkable Physical Examination - Vital Signs Temperature: 97.0 F Blood Pressure: 127/60 Pulse: 71 Respirations: 15 Pulse Ox (%): 99 - Physical Exam General: Alert, In no apparent distress HEENT: Atraumatic, PERRLA, EOMI Neck: Supple, JVD not distended Respiratory: Clear to auscultation bilaterally, Normal air movement Cardiovascular: Regular rate/rhythm, Normal S1 S2 Gastrointestinal: Normal bowel sounds, No tenderness Musculoskeletal: No tenderness Integumentary: No rashes Neurological: Normal speech, Normal tone, Normal affect Lymphatics: No axilla or inguinal lymphadenopathy - Studies Microbiology Data (last 24 hrs): 05/30/22 13:45 Blood - Blood Aerobic Blood Culture - Final No growth in 5 days. 05/30/22 13:45 Blood - Blood Anaerobic Blood Culture - Final No growth in 5 days. Assessment And Plan - Current Problems (Diagnosis) (1) CHF exacerbation Current Visit: No Status: Acute Plan: will admit the patient for diuresis. consult Dr. Coley. Will monitor I's and Os 06/05 morphine was very effective. Most likely her sob is due to angina Qualifiers: Heart failure type: diastolic Qualified Code(s): I50.33 - Acute on chronic diastolic (congestive) heart failure (2) Anemia Current Visit: Yes Status: Acute Plan: will order 2 units. check iron studies before transfusion. Give 40mg of lasix between units. 06/04 check an occult blood on the patient. stop scheduled hb draws Qualifiers: Anemia type: iron deficiency Iron deficiency anemia type: unspecified iron deficiency Qualified Code(s): D50.9 - Iron deficiency anemia, unspecified (3) Omental mass Current Visit: Yes Status: Chronic Plan: will need to get the records from [facility]. Will refer to Dr. Rausch as an out patient. Will then refer to Dr. Rausch. 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 Will adjust as necessary Qualifiers: (7) DNR (do not resuscitate) Current Visit: Yes Status: Acute Plan: will work on snf placement and change her to dnr Discharge Plan: Home Plan to discharge in: 24 Hours - Code Status/Comfort Care Code Status Assessed: No Physician Review: Patient Assessed, Agree with Above Assessment and Plan Critical Care: No Time Spent Managing PTS Care (In Minutes): 25
--- NOTE | 2022-06-05 14:42 | EKG ---
Test Date: 2022-06-04 Test Time: 23:27:14 Director [employer] Agency: [employer] ME[employer]MENT RESULTS: Intervals: Rate: 74 AL: 184 QRSD: 148 QT: 450 QTc: 499 [place]: P: 75 AL: 184 QRS: -30 T: 114 INTERPRETIVE STATEMENTS: Sinus rhythm with fusion complexes Left axis deviation Left bundle branch block Abnormal ECG Compared to ECG 05/30/2022 13:29:05 Fusion complex(es) now present Left bundle-branch block now present Myocardial infarct finding no longer present T-wave abnormality no longer present Possible ischemia no longer present Electronically Signed On 06-05-22 14:41:02 CDT by Carrillo Coley
[2022-06-05] MEDS ORDERED: ENOXAPARIN 40 MG/0.4 ML SQ SCH (17:00)
[2022-06-05] MEDS: DONEPEZIL HCL 5 MG TAB PO SCH (20:21)
[2022-06-05] MEDS: ANASTROZOLE 1 MG TAB PO SCH (20:23)
[2022-06-06 03:41] LABS: Potassium 3.5 mmol/L (3.5-5.1)
[2022-06-06] MEDS ORDERED: POTASSIUM CL SA 10 MEQ TAB PO ONE ×2 (09:00)
[2022-06-06] MEDS: HOME MED 1 EA UNK [ROSUVASTATIN 5 MG TAB] PO SCH (09:00)
[2022-06-06 09:34] VITALS: O2SAT 92
[2022-06-06] MEDS: PANTOPRAZOLE 40MG TABLET PO SCH (10:34)
[2022-06-06] MEDS: ESCITALOPRAM 20 MG TAB PO SCH (10:34)
[2022-06-06] MEDS: ASPIRIN 81 MG CHEWABLE TABLET PO SCH (10:37)
[2022-06-06] MEDS: LOSARTAN POTASSIUM 50 MG TABLET PO SCH (10:37)
[2022-06-06] MEDS: carvediloL 3.125 MG TAB PO SCH (10:37)
[2022-06-06] MEDS: FUROSEMIDE 40 MG/4 ML VIAL IV SCH (10:38)
[2022-06-06] MEDS: MEMANTINE HCL 10 MG TABLET PO SCH (10:39)
--- NOTE | 2022-06-06 12:33 | P.DS ---
Admission Date: 05/30/22 Discharge Date: 06/06/22 Primary Care Provider: Memo Gaston Disposition: TRANSFER TO INPATIENT REHAB Discharge Condition: GOOD Reason for Admission: CHF exacerbation - Problems (1) CHF exacerbation Current Visit: No Status: Acute Qualifiers: Heart failure type: diastolic Qualified Code(s): I50.33 - Acute on chronic diastolic (congestive) heart failure (2) Anemia Current Visit: Yes Status: Acute Qualifiers: Anemia type: iron deficiency Iron deficiency anemia type: unspecified iron deficiency Qualified Code(s): D50.9 - Iron deficiency anemia, unspecified (3) Omental mass Current Visit: Yes Status: Chronic (4) CAD (coronary artery disease) Current Visit: No Status: Chronic Qualifiers: Coronary Disease-Associated Artery/Lesion type: [place] artery (5) Dementia Current Visit: No Status: Chronic Qualifiers: Dementia type: Alzheimer's (6) HTN (hypertension) Current Visit: No Status: Chronic Qualifiers: (7) DNR (do not resuscitate) Current Visit: Yes Status: Acute Brief History of Present Illness: Patient is a an office patient of [employer]. She has a history of dementia, diastolic chf and breast cancer. She was in the hospital 2 weeks ago. Had very tight stenosis of her coronary arteries. Was transfered to [facility]. Dr. Putnam was not able to revascularize. She was going to have CABG. However they found nodularities in her omentum. This was present on 05/10. The patient had a biopsy of the mass. Her cardiac surgeon halted plans for a CABG. The patient was then discharged She has been having sob, for the past few days. The patients was also having swelling of the legs. Her niece brought her to the ER. Hospital Course: Patient presented for worsening shortness of breath. She needed diuresis and a bipap. Was not able to get the documentation from [facility]. As she was too weak to go home she is being placed in a SNF facility. The patient had a drop in her hb again. Guiac was negative. Will need a reticulocyte count and iron studies done in a week or two. Will need to get her biopsy report in the fu ture. She can follow up in my office after she leaves the snf facility. Vital Signs/Physical Exam: Temp Pulse Resp BP Pulse Ox 97.1 F 75 20 147/65 H 94 06/06/22 12:00 06/06/22 12:00 06/06/22 12:00 06/06/22 12:00 06/06/22 12:00 General: Alert, In no apparent distress HEENT: Atraumatic, PERRLA, EOMI Neck: Supple, JVD not distended Respiratory: Clear to auscultation bilaterally, Normal air movement Cardiovascular: Regular rate/rhythm, Normal S1 S2 Gastrointestinal: Normal bowel sounds, No tenderness Musculoskeletal: No tenderness Integumentary: No rashes Neurological: Normal speech, Normal tone, Normal affect Lymphatics: No axilla or inguinal lymphadenopathy Laboratory Data at Discharge: WBC 7.6 K/uL (4.3-10.9) D 06/05/22 05:22 Hgb 9.0 g/dL (12.0-15.0) L 06/05/22 05:22 Hct 27.3 % (36.0-45.0) L D 06/05/22 05:22 Plt Count 289 K/uL (152-406) 06/05/22 05:22 PT 12.5 SECONDS (9.5-12.5) 05/30/22 13:45 INR 1.13 05/30/22 13:45 APTT 20.7 SECONDS (24.3-36.9) L 05/30/22 13:45 Sodium 135 mmol/L (136-145) L 06/06/22 03:01 Potassium 3.5 mmol/L (3.5-5.1) 06/06/22 03:01 BUN 26 mg/dL (7-18) H 06/06/22 03:01 Creatinine 0.81 mg/dL (0.55-1.3) 06/06/22 03:01 Glucose 106 mg/dL (74-106) 06/06/22 03:01 Magnesium 1.7 mg/dL (1.8-2.4) L 05/30/22 13:45 Total Bilirubin 1.1 mg/dL (0.2-1.0) H 06/05/22 05:22 AST 22 U/L (15-37) 06/05/22 05:22 ALT 22 U/L (12-78) 06/05/22 05:22 Alkaline Phosphatase 57 U/L (45-117) 06/05/22 05:22 Lipase 95 U/L (73-393) 05/30/22 13:45 Home Medications: Losartan Potassium [Cozaar] 100 mg PO DAILY WITH BREAKFAST 09/16/16 Omeprazole 20 mg PO DAILY 09/16/16 Anastrozole [Arimidex*] 1 mg PO BEDTIME 02/15/22 Aspirin 81 mg PO DAILY 05/10/22 Memantine HCl [Namenda] 5 mg PO BID 05/10/22 Amlodipine Besylate [Norvasc] 5 mg PO DAILY 05/30/22 Atorvastatin Calcium [Lipitor] 40 mg PO BEDTIME 05/30/22 Cyclobenzaprine [Flexeril*] 10 mg PO BEDTIME 05/30/22 Trazodone HCl 50 mg PO BEDTIME 05/30/22 Diet: AHA Activity: Ad tegan Followup: Shiva Lantigua MD [Primary Care Provider] - Physician Review: Patient Assessed, Agree with Above Assessment and Plan Time spent managing pt's care (in minutes): 30
[2022-06-06 16:22] VITALS: BP 138/67; TEMP 97.4
--- OUTSIDE RECORDS SUMMARY | 2022-06-08 23:44 | XMS REPORT | Continuity of Care Document ---
:1935 Author Organization [facility] t Address [address] [place] [address] Care Team Providers Name Role Phone Indy Attending Clinician Unavailable Canales_M Attending Clinician Unavailable Love-Mbayo_A_AH Attending Clinician Unavailable Mary Hollins Attending Clinician [phone] Indy Admitting Clinician Unavailable Prudence Gaston Admitting Clinician Unavailable Canales_M Admitting Clinician Unavailable Love-Mbayo_A_AH Admitting Clinician Unavailable Payers Payer Name Policy Type Policy Number Effective Date Expiration Date [facility] [id number] 2021 (MEDICARE 00:00:00 REPLACEMENT HMO) [facility] - [id number] 2019 [employer] (MEDICARE 00:00:00 REPLACEMENT/ADVANTA GE - [...] 00 e Arthritis Arthritis Problem Active Halima hall 7-03 Family 00:00: Practic 00 e Allergies, Adverse Reactions, Alerts Allergy Allergy Status Severity Reaction(s) Onset Inactive Treating Comm ents Source Name Type Date Date Clinician Penicill DA Active [place] HIVES [facility] ins 6-29 Clear 00:00: [place] 00 [facility] PENICILL Allergy Active [facility] INS to Family substanc Practic e e Peniclli Adverse Active Info Not Commo n n Reaction Available [facility] Social History Smoking Status Start Date Stop Date Source Never Smoker [facility] Medications Ordered Filled Start Stop Current Ordering Indication Dosage Frequency Signature Comments Components Source Medication Medication Date Date Medication? Clinician (SIG) Name Name Tramadol Tramadol Yes Jose Alberto 1 tablet Common HCl HCl 6 [facility] 00:00: - [facility] anastrozole anastrozole No 1 Q1D anastrozol [...] route. omeprazole omeprazole No 1 Q1D omeprazole [facility] 20 mg 20 mg 20 mg [...] Alberto not Common thiazide thiazide Ring defined [facility] Anastrozole Anastrozole Yes Jose Alberto not Common Ring defined [facility] Omeprazole Omeprazole Yes Jose Alberto not Common Ring defined [facility] Losartan Losartan Yes Jose Alberto not Comm on Potassium Potassium Ring defined Sp [facility] Procedures Procedure Date / Time Performed Performing Clinician Gisselle hernandez [id number] 2022-05-25 00:00:00 LEEGA [facility] [id number] 2022-05-25 00:00:00 LEEGA [facility] [id number] 2022-05-25 00:00:00 PATMA.12 [facility] [id number] 2022-05-25 00:00:00 PATMA.12 [facility] [id number] 2022-05-18 00:00:00 RASSA [facility] [id number] 2022-05-18 00:00:00 RASSA [facility] [id number] 2022-05-18 00:00:00 RASSA [facility] Encounters Start End Encounter Admission Attending Care Care Encounter Source Date/Time Date/Time Type Type Clinicians Facility Department ID 2022-05-18 Inpatient EM Raslan, HCACL INTE.02 [id number] [facility] 14:24:00 Frank [id number] [facility] 2022-02-08 Outpatient STLMLC STLMLC [id number] Common 16:02:01 [facility] 2021-12-15 Outpatient STLMLC STLMLC [id number] Common 12:01:20 24602 [facility] 2021-12-15 Outpatient STLMLC STLMLC [id number] Common 11:54:02 33355 [facility] 2022-06-03 2022-06-03 [place] [id number] -2021 [facility] 07:17:00 07:17:00 [facility] 2022-05-20 2022-05-26 Inpatient EM Raslan, HCACL INTE.02 [id number] [facility] 14:05:00 14:06:00 Frank 93 [facility] 2022-05-20 2022-05-26 Inpatient EM Raslan, HCACL INTE.02 [id number] [facility] 14:05:00 14:06:00 Frank [id number] [facility] 2021-11-11 2021-11-11 Outpatient Canales_M DMG DMG [id number] -2020 [facility] 10:30:00 10:30:00 1223 [facility]ica l [facility] 2021-05-17 2021-05-17 Outpatient Love-Mbayo VFP VFP 795 [facility] 02:54:00 02:54:00 _A_AH 69663 Family Practic e 2021-02-22 2021-02-22 Outpatient Canales_M DMG [facility] [id number] -[id number] [facility] 11:38:00 11:38:00 0405 [facility] 2021-02-22 2021-02-22 Outpatient Hollins, DMG [facility] [id number] 00:00:00 00:00:00 Iliana [id number] Mary [id number] 2021-02-19 2021-02-19 Outpatient Canales_M DMG [facility] [id number] -2020 [facility] 11:15:00 11:15:00 0402 [facility] 2020-10-06 2020-10-06 Outpatient STLMLC STLMLC [id number] Common 00:00:00 00:00:00 [facility] 2020-09-29 2020-09-29 Outpatient STLMLC STLMLC [id number] Common 00:00:00 00:00:00 [facility] 2020-09-22 2020-09-22 Outpatient STLMLC STLMLC [id number] Common 00:00:00 00:00:00 [facility] 2020-09-10 2020-09-10 Outpatient STLMLC STLMLC [id number] Common 00:00:00 00:00:00 [facility] 2020-05-19 2020-05-19 Out[facility] [id number] Common 08:30:00 08:30:00 [facility] 2020-04-30 2020-04-30 Outpatient Love-Mbayo VFP VFP 795 [facility] 11:59:00 11:59:00 _A_AH 53606 Family Practic e 2020-04-20 2020-04-20 Outpatient Love-Mbayo VFP VFP 795 [facility] 06:26:00 06:26:00 _A_AH 71395 Family Practic e 2020-03-30 2020-03-30 Outpatient Cachorro [facility] [address] [place] [address] 02:45:00 02:45:00 _A_AH 45063 Family Practic e 2020-02-24 2020-02-24 Outpatient [facility] [id number] Common 14:30:00 14:30:00 t [facility] Bone [facility] Spiri t [facility] 2020-02-18 2020-02-18 Rachel [facility] [place] - [id number] V illage 00:00:00 00:00:00 Jorge [facility] Fam ryan washburn SAFETY DEPOSIT CLERK: Medical - Practi c [address] [email or web address]_[email or web address]_ e [facility], [address] [address], [place] [address] , Ph. 2020-01-29 2020-01-29 Outpatient [facility] [id number] Common 14:19:00 14:19:00 t [facility] Bone [facility] Sp[facility] t [facility] 2020-01-28 2020-01-28 Out[facility] [id number] Common 10:45:00 10:45:00 t Bone Bone and Spiri t and Joint [facility] - [facility] 2020-01-08 2020-01-08 Outpatient C[place]orro [facility] [address] [place] [address] 07:20:00 07:20:00 _A_ [id number] Family Practic e 2019-06-12 2019-06-12 Outpatient [facility] [id number] Common 11:07:00 11:07:00 t Bone Bone and Spiri t and Joint [facility] 2019-06-06 2019-06-06 Out[facility] [id number] Common 10:00:00 10:00:00 t Bone Bone and Spiri t and Joint [facility] - [facility] 2019-05-20 2019-05-20 Outpatient [facility] [id number] Common 09:30:00 09:30:00 t Bone Bone and Spiri t and Joint [facility] - [facility] Results Test Description Test Time Test Comments Results Result Comments Source SURGICAL 2022-06-01 11:14:00 Test Item Value Reference Range Interpretation Nayla nava SURGICAL RUN DATE: (test 06/01/22 [place] - LAB PAGE 1 RUN TIME: 1114 code = Specimen Inquiry RUN USER: INTERFACE SR) PATIENT: ZANDER SLOAN LOC: ROSALIEN1 U #: [id number] AGE/SX: 87/ F [place] [facility] [place]05/[place]22REG DR: Frank Putnam MD : 35 BED: 1 DIS: 05/26/22 STATUS: DIS IN TLOC: SPEC #: [id number] RECD: 08/11-141 STATUS: MALOU EDOUARD #: [id number] TINY: 05/25/22- SUBM DR: Frank Putnam MD ENTERED: 05/28/22-1417 SP TYPE: SURGICAL OTHR DR: Lizeth Morales MD, Nehme X MD Chaugle, Abdul Hannan MD Lee, Gabriel MD Mahmood, Khalid MD Tharani, Shamsha d NPORDERED: 05824, 08378, IHC ADD 24103/7, 71278-55, ANATOMIC SPEC COPIES TO: Lizeth Morales MD [address] [id number] Waleska Alberto MD [address] [facility] [id number] Marcellus De La Garza MD [address] [place] [address]. [address] [place] [address] Camron Fonseca MD [address] [facility] [address] [place] [address] Kyler Longoria MD [address] [id number] Frank Putnam MD [address] [facility] [address] [place] [address] Ofelia Syed SAFETY DEPOSIT CLERK [address] [place], [place] [address] CONTINUED ON NEXT PAGE RUN DATE: 06/01/22 [place] - [facility] PAGE 2 RUN TIME: 1114 Specimen Inquiry RUN USER: INTERFACE SPEC #: [id number] PATIENT: ZANDER SLOAN #[id number] (Continued) PROCEDURES: 81142 (05/28/221416) 77422 (06/01/22) IHC ADD 27854 (06/01/22) 8 8341-26 (06/01/22) TISSUES: A. PERITONEUM BIOPSY - NODULE, CORE CLINICAL HISTOR Y SAME FINAL DIAGNOSIS Peritoneal nodule, biopsy:Metastatic carcinoma, favor ovarian joshua gin. Comment: The peritoneal nodule biopsy shows a metastatic carcinoma that expresses Mullerianmarkers. Based on the overall immunohistochemical profile, ovarian origin is favored. GROSS DESCRI PTION The specimen received in formalin in a container labeled with the patient's name anddesignated peritoneal nodule consists of multiple scant fragments of tissue which inaggregate measure 0.5 cm i n greatest dimension. The specimen is entirely submitted in 1cassette. Technical component performe d at [facility],[address] [place] [address] Unless gross only, the diagno sis is based upon microscopic examination.Immunohistochemi stry: This test was developed and its performance characteristicsdetermined by this laboratory. It has n ot been approved nor does it need approvalby the [place] FDA. Appropriate positive and negative contro ls are reviewed and judgedto be acceptable. This laboratory is certified under the Clinical Laborator y ImprovementAmendments (CLIA-88) as qualified to perform high complexity clinical laboratory testing. MICROSCOPIC DESCRIPTION Sections of the peritoneal nodule mass show nests of tumor cells with mo derate to severelyatypical nuclei. Mitotic figures are easily seen. Vaguely some glandular struc tures arepresent. High-power examination of the tumor cells show pinpoint nucleoli. To evaluate the tu mor cells, immunohistochemical stains are performed. The tumor cells arepositive for pancytokerat in, CK7, PAX8, estrogen receptor, and variably positive for WT1. The tumor cells are negative for CK20 and calretinin. Inhibin immunohistochemical stainperformed at [facility] and interpreted at [facility] is negative in the tumor cells. CONTINUED ON NEXT PAGE RUN DATE: 06/01/22 [place] - LAB PAGE 3 RUN TIME: 1114 Specimen Inquiry RUN USER: INTERFACE SPEC #: [id number] PATIENT: ZANDER SLOAN #[id number] (Continued) CLINICAL INFORMATION PERITONAL NODULE Signed Dav Marie 06/01/22 1114 END OF REPORT [id number] 10:45:00 Test Item Value Reference Range Interpretation Comments MAGNESIUM (test code = MAG) 1.65 mg/dL 1.80-2.40 L CBC W/AUTO [id number] 08:08:00 Test Item Value Reference Range Interpretation Comments WHITE BLOOD CELL (test code = 6.6 x10 3/uL 4.5-11.0 WBC) RED BLOOD CELL (test code = 3.45 x10 6/uL 3.54-5.02 L RBC) HEMOGLOBIN (test code = HGB) 8.0 g/dL 11.0-15.0 L HEMATOCRIT (test code = HCT) 26.1 % 33.0-45.0 L MEAN CELL VOLUME (test code = 75.7 fL 81.0-99.0 L MCV) MEAN CELL HGB (test code = MCH) 23.2 pg 27.0-33.0 L MEAN CELL HGB CONCETRATION 30.7 g/dL 33.0-37.0 L (test code = MCHC) RED CELL DISTRIBUTION WIDTH CV 16.6 % 11.5-14.5 H (test code = RDW) RED CELL DISTRIBUTION WIDTH SD 45.0 fL 37.0-54.0 N (test code = RDW-SD) PLATELET COUNT (test code = 360 x10 3/uL 150-400 N PLT) MEAN PLATELET VOLUME (test code 9.7 fL 7.0-9.0 H = MPV) NEUTROPHIL % (test code = NT%) 78.4 % 56.0-77.0 H IMMATURE GRANULOCYTE % (test 0.5 % 0.0-2.0 N code = IG%) LYMPHOCYTE % (test code = LY%) 10.8 % 14.0-32.0 L MONOCYTE % (test code = MO%) 8.7 % 4.8-9.0 N EOSINOPHIL % (test code = EO%) 1.4 % 0.3-3.7 N BASOPHIL % (test code = BA%) 0.2 % 0.0-2.0 N NUCLEATED RBC % (test code = 0.0 % 0-0 N NRBC%) NEUTROPHIL # (test code = NT#) 5.21 x10 3/uL 2.0-7.6 N IMMATURE GRANULOCYTE # (test 0.03 x10 3/uL 0.00-0.03 N code = IG#) LYMPHOCYTE # (test code = LY#) 0.72 x10 3/uL 1.0-3.8 L MONOCYTE # (test code = MO#) 0.58 x10 3/uL 0.1-0.8 N EOSINOPHIL # (test code = EO#) 0.09 x10 3/uL 0.0-0.2 N BASOPHIL # (test code = BA#) 0.01 x10 3/uL 0.0-0.2 N NUCLEATED RBC # (test code = 0.00 x10 3/uL 0.0-0.1 N NRBC#) MANUAL DIFF REQUIRED (test code NO = MDIFF) BASIC METABOLIC [id number] 07:29:00 Test Item Value Reference Range Interpretation Comments SODIUM (test code = NA) 126 mEq/L 134-147 L POTASSIUM (test code = 4.0 mEq/L 3.4-5.0 N K) CHLORIDE (test code = 95 mEq/L 100-108 L CL) CARBON DIOXIDE (test 22 mEq/l 21-33 N code = CO2) ANION GAP (test code = 13 0-20 N GAP) GLUCOSE (test code = 98 mg/dL 70-110 N GLU) BLOOD UREA NITROGEN 16 mg/dL 7-18 N (test code = BUN) GLOMERULAR FILTRATION 94.6 70-80 H Units of measure = RATE (test code = GFR) ml/mi n/1.73 m2 CREATININE (test code = 0.6 mg/dL 0.6-1.3 N CREAT) CALCIUM (test code = 8.9 mg/dL 8.0-10.5 N CA) PROTHROMBIN [id number] 06:41:00 Test Item Value Reference Range Interpretation Comments PROTHROMBIN TIME 13.1 SECONDS 9.3-12.9 H PATIENT (test code = PTP) INTERNATIONAL NORMAL 1.2 0.8-1.2 N TARGET RATIO (test code = INR BY IN DICATION INR) Indication INR1. Prophyl axis of venous thrombos is 2.0 - 3. 0 (orthopedic zenobia wali), Prophylaxis of venous thrombos is (other than hig h-risk surgery), Nori tment of Deep Vein Thrombosis/Pulm onary Embolism, Preve ntion of systemic emb olism - Tissue heart va lves, Acute Myocardia l Infarction (to prevent systemic embo lism), Valvular heart disease, Atri al Fibrillation, Bileaflet mecha nical valve in aortic position.2. Mec hanical prosthetic valv es (high risk), 2.5 - 3.5 Presence of Lupus Anticoagu lant or Antiphospholi pid Antibodies, Pre vention of systemic e mbolism - Acute Myocard ial Infarction (t o prevent recurre nt infarct). COVID 19 Asymptomatic IH [id number] 04:50:00 Test Item Value Reference Range Interpretation Comments COVID 19 Asymptomatic Negative Negative A nega tive result is IH AG (test code = presumpti ve and should COVNONPUIAG) be confirmedwit h an FDA authorized mole cular assay, if neces cyrus forpatient nito gement.A positive result does not rule out co-inf ections withother patho gens.This test detects feliberto th viable (live) and non-viable,SARS -CoV, and SARS-CoV-2. Charissa t performance dep ends on theamount of vi anabel (antigen) in th e sample.This charissa t has not been FDA cleare d or approved; the t est hasbeen authori zed by FDA under an Em ergency Use Authorizati on(EUA) for use by labo ratories certified under the CLIA thatmeet the requirements to perform moderate, high or waivedcomplexit y tests. COMMENTS: PRE ENDO- CT GUID NDL PLCMT (Biopsy/Asp)2022-05-25 00:00:00 [facility] BHARGAV MEDELLINName: ZANDER SLOAN : 1935 Sex: F Name: ZANDER SLOAN [facility] Bhargav [place]ellin : [birth year] Age/S: 87 / F [address] [place] [address] Blvd Unit #: [id number] Loc: [place] [address] Phys: Jamshid Chang MD Acct: [id number] Dis Date: Status: ADM IN PHONE #: [phone] Exam Date: 05/25/2022 1313 FAX #: [phone] R cira: peritoneal mets- etiology? EXAMS: CPT CODE: [id number] CT GUID NDL [facility] (Biopsy/Asp) [id number] PROCEDURE INFORMATION: Exam: IR Biopsy, abdominal or retroperitoneal mass, percutaneous needle Exam date and time: 05/25/2022 11:37 AM Age: 87 years old Clinical indication: Other: Peritoneal mets- etiology? TECHNIQUE: Imaging protocol: Biopsy, abdominal or retroperitoneal mass, percutaneous needle. CT guidance was provided. Radiation opt imization: All CT scans at this facility use at least one of these dose optimization techniques: automated exposure control; mA and/or kV adjustment per patient size (includes targeted exams where dose is matched to clinical indication); or iterative reconstruction. G uidance contrast: CT contrast route: Intra-venous; COMPARISON: CT ABD PELVIS W/O CONT05/20/2022 9:07 AM Total DLP (mGy-cm): 638.0 PROCEDURE: 1. CT-guided biopsy of a peritoneal mass 2. Moderate Sedation CONSENT: The procedure, risks, benefits, and alternatives were discussed and informed consent was obtained. A "timeout" performed per protocol prior to the procedure. TECHNIQUE: Moderate sedation: I supervised moderate sedation during this procedure. Patient was continuously monitored by a nurse using automated blood pressure, electrocardiogram, and pulse oximetry. The moderate sedation record is permanently stored in the hospital information system. The personal supervised moderate sedation time was 25 minutes. Medications administered: Versed 1 mg IV and Fentanyl [address] was used to demarcate anterior peritoneal mass. The anterior abdomen of the patient was prepped and draped using sterile technique. The overlying skin was anesthetized with 1% lidocaine. Using CT guidance, a 17-gauge introducer needle was advanced into the peritoneal mass. Subsequently, 4 core biopsies were obtained of this mass using a coaxial technique. The needles were removed at the end of the procedure and sterile dressings applied. Postprocedure imaging demonstrated no immediate complication. The patient was stable throughout the procedure. IMPRESSION: Successful CT-guided biopsy of peritoneal mass. PAGE 1 Signed Report (CONTINUED) Name: ZANDER SLOAN [facility] : 1935 Age/S: 87 / F [address] [place] [address] Unit #: [id number] Loc: [place] [address] Phys: Jamshid Chang MD Acct: [id number] Dis Date: Status: ADM IN PHONE #: [phone] Exam Date: 05/25/2022 1313 FAX #: [phone] Reason: peritoneal mets- etiology? EXAMS: CPT CODE: [id number] CT GUID NDL PLCMT (Biopsy/Asp) 23309 <Continued> at 1501 Reported and signed by: Aure Hanson D.O. CC: Jamshid Chang MD; Frank Putnam MD Technologist:RT Tiffany(R)(CT) CTDI: DLP: Trnscb Date/Time: 05/25/2022 (1501) t.[email or web address] Orig Print D/T: S: 05/25/2022 (150) PAGE 2 Signed ReportPROTEIN ELECTROPHORESIS [id number] 17:08:00 Test Item Value Reference Range Interpretation Comments TOTAL PROTEIN 5.7 g/dL 6.0-8.5 L (test code = PROTE) ALBUMIN (test 3.1 g/dL 2.9-4.4 code = ALBE) UMNOU-3-WNXAKTHS 0.3 g/dL 0.0-0.4 (test code = A1G) QJWRK-4-UUGBIRKM 0.6 g/dL 0.4-1.0 (test code = A2G) BETA GLOBULIN 0.8 g/dL 0.7-1.3 (test code = BG) GAMMA GLOBULIN 0.9 g/dL 0.4-1.8 (test code = GG) M-SPIKE,SERUM Not Observed g/dL Not Observed (test code = MSPIKES) GLOBULIN ELECT 2.6 g/dL 2.2-3.9 (test code = GLOBE) ALBUMIN/GLOBULIN 1.2 0.7-1.7 RATIO (test code = AGE) PROT.ELECTROPH.IN See_Comment The SPE pa ttern TERPRETATION appears (test code = unremarkable. ELEINT) Evidence ofmonoclonal pr otein is not apparent.Perfor med At: HD [facility] [address] [place], [place] [id number] Willis Lovett MD Ph:[phone] rform ed At: DA [facility] [id number] [facility] [address] [place], [place] [id number] tim TAVERA MD Ph:[phone] [Automated mess age] The system [employer] generated this result transmit lavon reference range : (). The reference r hugo was not used to interpret this result as normal/abnormal . LACTIC DEHYDROGENASE(LDH)2022-05-24 17:08:00 Test Item Value Reference Range Interpretation Comments LACTIC DEHYDROGENASE(LDH) (test 233 IUnits/L 84-246 N code = LDH) TOTAL IRON BINDING [id number] 17:08:00 Test Item Value Reference Range Interpretation Comments SERUM IRON (test code = IRON) 88 mcg/dL 35-150 N TOTAL IRON BINDING CAPACITY (test 382 mcg/dL 260-445 N code = TIBC) UIBC (test code = UIBC) 294 mcg/dL IRON SATURATION (test code = 23.0 % 14-34 N FESAT) VITAMIN [id number] 17:08:00 Test Item Value Reference Range Interpretation Comments VITAMIN B12 (test code = VITB12) 262 pg/mL 193-986 N FOLIC [id number] 17:08:00 Test Item Value Reference Range Interpretation Comments FOLIC ACID (test code = FOL) 11.3 ng/mL 3.1-17.5 N AG [id number] 17:08:00 Test Item Value Reference Range Interpretation Comments AG CARCINOEMBRYONIC (test code = 0.1 NG/ML 0.0-5.0 N CEA) CA [id number] 17:08:00 Test Item Value Reference Range Interpretation Comments CA 125 (test 115.0 U/mL 0.0-38.1 A Greta Diagnosti cs code = Electrochemilum inescence CA125) Immunoassay(ECL IA)Values obtained with d ifferent assay methods or kits cannotbe used interchangeably . Results cannot be inter preted asabsolute evid ence of the presence or abs ence of malignantdiseas e. CA27-29, [id number] 17:08:00 Test Item Value Reference Range Interpretation Comments CA27-29, 22.1 U/mL 0.0-38.6 [employer] BIOMIRA (test Immunochemilum inometric code = ZJ8199) Methodology ( ICMA)Values obtained with d ifferent assay methods or kits cannotbe used interchangeably . Results cannot be inter preted asabsolute evid ence of the presence or abs ence of malignantdiseas e.Performed At: [facility] [address]ky[address] [place], [place] [id number] Kyle L MD Ph:[phone] BASIC METABOLIC [id number] 04:47:00 Test Item Value Reference Range Interpretation Comments SODIUM (test code = NA) 127 mEq/L 134-147 L POTASSIUM (test code = 4.3 mEq/L 3.4-5.0 N K) CHLORIDE (test code = 98 mEq/L 100-108 L CL) CARBON DIOXIDE (test 23 mEq/l 21-33 N code = CO2) ANION GAP (test code = 10 0-20 N GAP) GLUCOSE (test code = 99 mg/dL 70-110 N GLU) BLOOD UREA NITROGEN 25 mg/dL 7-18 H (test code = BUN) GLOMERULAR FILTRATION 52.4 70-80 L Units of measure = RATE (test code = GFR) ml/mi n/1.73 m2 CREATININE (test code = 1.0 mg/dL 0.6-1.3 N CREAT) CALCIUM (test code = 7.8 mg/dL 8.0-10.5 L CA) [id number] 04:47:00 Test Item Value Reference Range Interpretation Comments MAGNESIUM (test code = MAG) 1.80 mg/dL 1.80-2.40 N CBC W/AUTO [id number] 04:37:00 Test Item Value Reference Range Interpretation Comments WHITE BLOOD CELL (test code = 4.5 x10 3/uL 4.5-11.0 N WBC) RED BLOOD CELL (test code = 3.12 x10 6/uL 3.54-5.02 L RBC) HEMOGLOBIN (test code = HGB) 7.5 g/dL 11.0-15.0 L HEMATOCRIT (test code = HCT) 22.9 % 33.0-45.0 L MEAN CELL VOLUME (test code = 73.4 fL 81.0-99.0 L MCV) MEAN CELL HGB (test code = MCH) 24.0 pg 27.0-33.0 L MEAN CELL HGB CONCETRATION 32.8 g/dL 33.0-37.0 L (test code = MCHC) RED CELL DISTRIBUTION WIDTH CV 16.1 % 11.5-14.5 H (test code = RDW) RED CELL DISTRIBUTION WIDTH SD 42.2 fL 37.0-54.0 N (test code = RDW-SD) PLATELET COUNT (test code = 249 x10 3/uL 150-400 N PLT) MEAN PLATELET VOLUME (test code 9.4 fL 7.0-9.0 H = MPV) NEUTROPHIL % (test code = NT%) 56.8 % 56.0-77.0 N IMMATURE GRANULOCYTE % (test 0.2 % 0.0-2.0 N code = IG%) LYMPHOCYTE % (test code = LY%) 25.8 % 14.0-32.0 N MONOCYTE % (test code = MO%) 12.4 % 4.8-9.0 H EOSINOPHIL % (test code = EO%) 4.6 % 0.3-3.7 H BASOPHIL % (test code = BA%) 0.2 % 0.0-2.0 N NUCLEATED RBC % (test code = 0.0 % 0-0 N NRBC%) NEUTROPHIL # (test code = NT#) 2.57 x10 3/uL 2.0-7.6 N IMMATURE GRANULOCYTE # (test 0.01 x10 3/uL 0.00-0.03 N code = IG#) LYMPHOCYTE # (test code = LY#) 1.17 x10 3/uL 1.0-3.8 N MONOCYTE # (test code = MO#) 0.56 x10 3/uL 0.1-0.8 N EOSINOPHIL # (test code = EO#) 0.21 x10 3/uL 0.0-0.2 H BASOPHIL # (test code = BA#) 0.01 x10 3/uL 0.0-0.2 N NUCLEATED RBC # (test code = 0.00 x10 3/uL 0.0-0.1 N NRBC#) MANUAL DIFF REQUIRED (test code NO = MDIFF) [id number] 17:11:00 Test Item Value Reference Range Interpretation Comments HAPTOGLOBIN (test code 137 mg/dL 41-333 Perfo rmed At: DA = HAPT) [facility] [address] [place], [place] [id number] h LIANG RUST Ph:[phone] BASIC METABOLIC [id number] 04:10:00 Test Item Value Reference Range Interpretation Comments SODIUM (test code = NA) 127 mEq/L 134-147 L POTASSIUM (test code = 4.2 mEq/L 3.4-5.0 N K) CHLORIDE (test code = 98 mEq/L 100-108 L CL) CARBON DIOXIDE (test 23 mEq/l 21-33 N code = CO2) ANION GAP (test code = 10 0-20 N GAP) GLUCOSE (test code = 107 mg/dL 70-110 N GLU) BLOOD UREA NITROGEN 22 mg/dL 7-18 H (test code = BUN) GLOMERULAR FILTRATION 59.2 70-80 L Units of measure = RATE (test code = GFR) ml/mi n/1.73 m2 CREATININE (test code = 0.9 mg/dL 0.6-1.3 N CREAT) CALCIUM (test code = 8.1 mg/dL 8.0-10.5 N CA) [id number] 04:10:00 Test Item Value Reference Range Interpretation Comments MAGNESIUM (test code = MAG) 1.92 mg/dL 1.80-2.40 N CBC W/AUTO [id number] 03:56:00 Test Item Value Reference Range Interpretation Comments WHITE BLOOD CELL (test code = 5.9 x10 3/uL 4.5-11.0 N WBC) RED BLOOD CELL (test code = 3.22 x10 6/uL 3.54-5.02 L RBC) HEMOGLOBIN (test code = HGB) 7.6 g/dL 11.0-15.0 L HEMATOCRIT (test code = HCT) 23.5 % 33.0-45.0 L MEAN CELL VOLUME (test code = 73.0 fL 81.0-99.0 L MCV) MEAN CELL HGB (test code = MCH) 23.6 pg 27.0-33.0 L MEAN CELL HGB CONCETRATION 32.3 g/dL 33.0-37.0 L (test code = MCHC) RED CELL DISTRIBUTION WIDTH CV 15.9 % 11.5-14.5 H (test code = RDW) RED CELL DISTRIBUTION WIDTH SD 41.4 fL 37.0-54.0 N (test code = RDW-SD) PLATELET COUNT (test code = 264 x10 3/uL 150-400 N PLT) MEAN PLATELET VOLUME (test code 9.2 fL 7.0-9.0 H = MPV) NEUTROPHIL % (test code = NT%) 66.7 % 56.0-77.0 N IMMATURE GRANULOCYTE % (test 0.3 % 0.0-2.0 N code = IG%) LYMPHOCYTE % (test code = LY%) 19.4 % 14.0-32.0 N MONOCYTE % (test code = MO%) 10.4 % 4.8-9.0 H EOSINOPHIL % (test code = EO%) 3.0 % 0.3-3.7 N BASOPHIL % (test code = BA%) 0.2 % 0.0-2.0 N NUCLEATED RBC % (test code = 0.0 % 0-0 N NRBC%) NEUTROPHIL # (test code = NT#) 3.96 x10 3/uL 2.0-7.6 N IMMATURE GRANULOCYTE # (test 0.02 x10 3/uL 0.00-0.03 N code = IG#) LYMPHOCYTE # (test code = LY#) 1.15 x10 3/uL 1.0-3.8 N MONOCYTE # (test code = MO#) 0.62 x10 3/uL 0.1-0.8 N EOSINOPHIL # (test code = EO#) 0.18 x10 3/uL 0.0-0.2 N BASOPHIL # (test code = BA#) 0.01 x10 3/uL 0.0-0.2 N NUCLEATED RBC # (test code = 0.00 x10 3/uL 0.0-0.1 N NRBC#) MANUAL DIFF REQUIRED (test code NO = MDIFF) HGBA1C%2022-05-20 05:16:00 Test Item Value Reference Range Interpretation Comments HGBA1C% (test code = HGBA1C%) < 3.8 %A1C 4.8-6.0 L LIPID PROFILE (CORONARY RISK)2022-05-20 05:12:00 Test Item Value Reference Range Interpretation Comments TRIGLYCERIDES (test 62 mg/dL 40-150 N code = TRIG) CHOLESTEROL (test 118 mg/dL <200 code = CHOL) CHOLESTEROL/HDL 1.92 RATIO 3.27-4.44 L RISK ASSOCIA LAVON WITH RATIO (test code = CHOL/HDL RATIOS: RISK CHOLHDL) MALE FEMALE1/2 AVERA GE 3.43 3.27AVERAGE 4.97 4.4 42X AVERAGE 9.55 7.053X AVER AGE 23.39 1 1.04 NOTE THAT THE R EFERENCE VALUE IS RELATE DTO RISK LEVELS RECOM MENDED BY THE NATL.HEA RT, LUNG, AND BLOOD INST. HDL CHOLESTEROL 61.4 mg/dL 39-96 N (test code = HDL) LIPOPROTEIN LDL 58.1 mg/dL 0-100 N <100 OPT [id number] (test code = LDL) NEAR OPTI MAL/ABOVE [id number] 89 HIGH>AW=745 VE RY HIGH*Guidelines provided by the National Choles terol EducationProgra m Adult Treatment Panel III SERUM [id number] 05:12:00 Test Item Value Reference Range Interpretation Comments SERUM IRON (test code = IRON) 90 mcg/dL 35-150 N THYROID STIMULATING [id number] 05:12:00 Test Item Value Reference Range Interpretation Comments THYROID STIMULATING 2.69 0.42-5.47 N Results in HORMONE (test code = TSH) mi lli-International Units/mL [id number] 05:12:00 Test Item Value Reference Range Interpretation Comments FERRITIN (test code = BRIDGET) 35.6 ng/mL 11.0-306.8 N RETIC COUNT (AUTOMATED)2022-05-20 05:08:00 Test Item Value Reference Range Interpretation Comments RETIC COUNT (AUTOMATED) (test code = 2.3 % 0.3-2.3 N RETICA) BASIC METABOLIC [id number] 05:00:00 Test Item Value Reference Range Interpretation Comments SODIUM (test code = NA) 128 mEq/L 134-147 L POTASSIUM (test code = 3.9 mEq/L 3.4-5.0 N K) CHLORIDE (test code = 99 mEq/L 100-108 L CL) CARBON DIOXIDE (test 25 mEq/l 21-33 N code = CO2) ANION GAP (test code = 9 0-20 N GAP) GLUCOSE (test code = 105 mg/dL 70-110 N GLU) BLOOD UREA NITROGEN 31 mg/dL 7-18 H (test code = BUN) GLOMERULAR FILTRATION 52.4 70-80 L Units of measure = RATE (test code = GFR) ml/mi n/1.73 m2 CREATININE (test code = 1.0 mg/dL 0.6-1.3 N CREAT) CALCIUM (test code = 8.0 mg/dL 8.0-10.5 N CA) [id number] 05:00:00 Test Item Value Reference Range Interpretation Comments MAGNESIUM (test code = MAG) 2.06 mg/dL 1.80-2.40 CBC W/AUTO [id number] 04:59:00 Test Item Value Reference Range Interpretation Comments WHITE BLOOD CELL (test code = 4.8 x10 3/uL 4.5-11.0 N WBC) RED BLOOD CELL (test code = 3.41 x10 6/uL 3.54-5.02 L RBC) HEMOGLOBIN (test code = HGB) 8.0 g/dL 11.0-15.0 L HEMATOCRIT (test code = HCT) 25.1 % 33.0-45.0 L MEAN CELL VOLUME (test code = 73.6 fL 81.0-99.0 L MCV) MEAN CELL HGB (test code = MCH) 23.5 pg 27.0-33.0 L MEAN CELL HGB CONCETRATION 31.9 g/dL 33.0-37.0 L (test code = MCHC) RED CELL DISTRIBUTION WIDTH CV 15.9 % 11.5-14.5 H (test code = RDW) RED CELL DISTRIBUTION WIDTH SD 41.2 fL 37.0-54.0 N (test code = RDW-SD) PLATELET COUNT (test code = 271 x10 3/uL 150-400 N PLT) MEAN PLATELET VOLUME (test code 9.6 fL 7.0-9.0 H = MPV) NEUTROPHIL % (test code = NT%) 64.2 % 56.0-77.0 N IMMATURE GRANULOCYTE % (test 0.2 % 0.0-2.0 N code = IG%) LYMPHOCYTE % (test code = LY%) 21.2 % 14.0-32.0 N MONOCYTE % (test code = MO%) 11.9 % 4.8-9.0 H EOSINOPHIL % (test code = EO%) 2.1 % 0.3-3.7 N BASOPHIL % (test code = BA%) 0.4 % 0.0-2.0 N NUCLEATED RBC % (test code = 0.0 % 0-0 N NRBC%) NEUTROPHIL # (test code = NT#) 3.06 x10 3/uL 2.0-7.6 N IMMATURE GRANULOCYTE # (test 0.01 x10 3/uL 0.00-0.03 N code = IG#) LYMPHOCYTE # (test code = LY#) 1.01 x10 3/uL 1.0-3.8 N MONOCYTE # (test code = MO#) 0.57 x10 3/uL 0.1-0.8 N EOSINOPHIL # (test code = EO#) 0.10 x10 3/uL 0.0-0.2 N BASOPHIL # (test code = BA#) 0.02 x10 3/uL 0.0-0.2 N NUCLEATED RBC # (test code = 0.00 x10 3/uL 0.0-0.1 N NRBC#) MANUAL DIFF REQUIRED (test code NO = MDIFF) - CT ABD PELVIS W/O [id number] 00:00:00 [facility] : 1935 Sex: F Name: ZANDER SLOAN [facility] [place] : 04/20 Age/S: 87 / F [address] [place] [address] Blvd Unit #: [id number] Loc: [place] [address] Phys: Kyler Longoria MD Acct: [id number] Dis Date: Status: ADM IN PHONE #: [phone] Exam Date: 05/20/2022921 FAX #: [phone] R cira: Peritoneal nodularity, breast cancer EXAMS: CPT CODE: [id number] CT ABD PELVIS W/O CONT [id number] PROCEDURE INFORMATION: Exam: CT Abdomen And Pelvis Without Contrast Exam date and time: 05/20/2022 9:07 AM Age: 87 years old Clinical indication: Other: Peritoneal nodularity, breast cancer TECHNIQUE: Imaging protocol: Computed tomography of the abdomen and pelvis without contrast. Radiation optimization: All CT scans at this facility use at least one of these dose optimization techniques: automated exposure control; mA and/or kVadjustment per patient size (includes targeted exams where dose is matched to clinical indication); or iterative reconstruction. COMPARISON: CT CHEST W/O CONTRAST 05/19/2022 10:29 AM FINDINGS: Limitations: Assessment of the viscera and vasculature may belimited by the lack of intravenous contrast. Lungs: Interstitial opacities and indistinct ground-glass opacities predominantly in dependent portions of the lungs similar in appearance. Pleural spaces: Bilateral layering pleural effusions, right greater than left redemonstrated. Heart: Cardiomegaly and coronary arterial calcifications partially imaged. Mediastinal space: There is moderate-sized hiatal hernia with paraesophageal component. Liver: Unremarkable within limitations Gallbladder and bile ducts: Hyperattenuation ofgallbladder contents compatible with vicarious excretion of contrast or sludge. No pericholecystic edema. No biliary dilatation. Pancreas: There is diffuse, benign fatty infiltration of the pancreas. Spleen: Unremarkable. Adrenal glands: Unremarkable. Kidneys and ureters: The renal contours are normal. Residual excreted contrast in nondilated renal collecting systems. Noncommunicating water attenuation structures compatible with parapelvic cysts. Stomach and bowel: The contracted stomach is otherwise unremarkable. The small bowel is unremarkable. There is scattered fecal material throughout the colon. Left-sided colonic diverticulosis. Appendix: The appendix is not visualized. Cecal tip inseparable from soft tissue in the right adnexal region. PAGE 1 Signed R eport (CONTINUED) Name: ZANDER SLOAN [facility] : 1935 Age/S: 87 / F [address] [place] [address] Blvd Unit #: [id number] Loc: [place] [address] Phys: Kyler Longoria MD Acct: [id number] Dis Date: Status: ADM IN PHONE #: [phone] Exam Date: 05/20/2022921 FAX#: [phone] Reason: Peritoneal nodularity, breast cancer EXAMS: CPT CODE: [id number] CT ABD PELVIS W/O [id number] <Continued> Intraperitoneal space: There is a small volume of free intraperitoneal fluid. There is no focal fluid collection. There is no free intraperitoneal air. Multifocal peritoneal nodularity notably in the omentum and left upper quadrant. Largest discrete component estimated 2.7 x 1.9 cm, series 2, image 16. Vasculature: The aorta demonstrates severe atherosclerotic calcification. Irregular aortic ectasia. 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 Maximum diameter infrarenal aorta 2.4 cm. Lymph nodes: Left anterior diaphragmatic node 13 x 12 mm. There is no retroperitoneal or pelvic adenopathy by size criteria. There are mildly enlarged mesenteric nodes measuring up to 11 mm short axis series 2, image 78. Urinary bladder: The urinary bladder contains excreted contrast, otherwise unremarkable. Reproductive: The uterus and adnexa are not well delineated on this examination. There are scattered calcifications in the uterus and adnexal regions. There is no gross measurable mass. Bones/joints: The lumbar spine demonstrates moderate degenerative changes at multiple levels. Soft tissues: There is generalized subcutaneous edema. No focal fluid collection. IMPRESSION: 1. Findings of peritoneal carcinomatosis. 2. Anterior diaphragmatic and mesenteric lymphadenopathy. 3. Limited assessment of the uterus and adnexa by this technique with amorphous tissue containing multiple calcifications. Relative contributions of uterine/adnexal massesand metastatic disease are undetermined. 4. The appendix is not visualized with cecal tip inseparable from described pelvic changes. 5. Severe atherosclerosis. 6. Bilateral, right greater than left pleural effusions and pulmonary opacities redemonstrated. The reader is referred to recent CT chest report for further details. at 1527 Reported and signed by: Memo Saleem M.D. PAGE 2 Signed Report (CONTINUED) Name: ZANDER SLOAN [facility] : 1935 Age/S: 87 / F [address] [place] [address] Blvd Unit #: [id number] Loc: [place] [address] Phys: Kyler Longoria MD Acct: [id number] Dis Date: Status: ADM IN PHONE #: [phone] Exam Date: FAX #: [phone] Reason: Peritoneal nodularity, breast cancer EXAMS: CPT CODE: [id number] CT ABD PELVISW/O CONT [id number] <Continued> CC: Kyler Longoria; Frank Putnam MD Technologist:Rosalind Sheehan. RT(R)(CT) CTDI:DLP: Trnscb Date/Time: 05/20/2022 (152) [email or web address] Orig Print D/T: S: 05/20/2022 (152) PAGE 3 Signed Report URINALYSIS [id number] 07:24:00 Test Item Value Reference Range Interpretation Comments UA COLOR (test code = COLU) YELLOW YEL/STRAW UA APPEARANCE (test code = APPU) CLEAR CLEAR UA GLUCOSE DIPSTICK (test code = NEGATIVE NEGATIVE DGLUU) UA BILIRUBIN DIPSTICK (test code NEGATIVE NEGATIVE = BILU) UA KETONE DIPSTICK (test code = NEGATIVE NEGATIVE KETU) UA SPECIFIC GRAVITY (test code = 1.036 1.005-1.030 H SGU) UA BLOOD DIPSTICK (test code = NEGATIVE NEGATIVE RADHA) UA PH DIPSTICK (test code = THERESE) 5.0 5.0-7.0 N UA PROTEIN DIPSTICK (test code = NEGATIVE NEGATIVE PROU) UA UROBILINIOGEN DIPSTICK (test 0.2 mg/dL 0.2-1.0 code = URO) UA NITRITE DIPSTICK (test code = NEGATIVE NEGATIVE HERSON) UA LEUKOCYTE ESTERASE DIPSTICK 1+ NEGATIVE A (test code = LEUU) UA RBC (test code = RBCU) 0-3 RBC/HPF 0-3 UA WBC NO REFLEX (test code = 4-9 WBC/HPF 0-3 A WBCUCL) UA BACTERIA (test code = BACU) TRACE /HPF NONE SEEN UA SQUAMOUS CELLS (test code = 0-5 /HPF NONE SEEN SQU) CBC W/AUTO [id number] 04:25:00 Test Item Value Reference Range Interpretation Comments WHITE BLOOD CELL (test code = 4.8 x10 3/uL 4.5-11.0 N WBC) RED BLOOD CELL (test code = 2.90 x10 6/uL 3.54-5.02 L RBC) HEMOGLOBIN (test code = HGB) 6.8 g/dL 11.0-15.0 L HEMATOCRIT (test code = HCT) 21.0 % 33.0-45.0 L MEAN CELL VOLUME (test code = 72.4 fL 81.0-99.0 L MCV) MEAN CELL HGB (test code = MCH) 23.4 pg 27.0-33.0 L MEAN CELL HGB CONCETRATION 32.4 g/dL 33.0-37.0 L (test code = MCHC) RED CELL DISTRIBUTION WIDTH CV 15.1 % 11.5-14.5 H (test code = RDW) RED CELL DISTRIBUTION WIDTH SD 40.1 fL 37.0-54.0 N (test code = RDW-SD) PLATELET COUNT (test code = 294 x10 3/uL 150-400 N PLT) MEAN PLATELET VOLUME (test code 9.2 fL 7.0-9.0 H = MPV) NEUTROPHIL % (test code = NT%) 60.2 % 56.0-77.0 N IMMATURE GRANULOCYTE % (test 0.4 % 0.0-2.0 N code = IG%) LYMPHOCYTE % (test code = LY%) 23.9 % 14.0-32.0 N MONOCYTE % (test code = MO%) 13.2 % 4.8-9.0 H EOSINOPHIL % (test code = EO%) 1.9 % 0.3-3.7 N BASOPHIL % (test code = BA%) 0.4 % 0.0-2.0 N NUCLEATED RBC % (test code = 0.0 % 0-0 N NRBC%) NEUTROPHIL # (test code = NT#) 2.86 x10 3/uL 2.0-7.6 N IMMATURE GRANULOCYTE # (test 0.02 x10 3/uL 0.00-0.03 N code = IG#) LYMPHOCYTE # (test code = LY#) 1.14 x10 3/uL 1.0-3.8 N MONOCYTE # (test code = MO#) 0.63 x10 3/uL 0.1-0.8 N EOSINOPHIL # (test code = EO#) 0.09 x10 3/uL 0.0-0.2 N BASOPHIL # (test code = BA#) 0.02 x10 3/uL 0.0-0.2 N NUCLEATED RBC # (test code = 0.00 x10 3/uL 0.0-0.1 N NRBC#) MANUAL DIFF REQUIRED (test code NO = MDIFF) RBC [id number] 04:25:00 Test Item Value Reference Range Interpretation Comments ANISOCYTOSIS (test code = ANISO) 1+ POLYCHROMASIA (test code = POLC) 1+ HYPOCHROMIA (test code = HYPO) 1+ MICROCYTOSIS (test code = MICR) 1+ BASIC METABOLIC [id number] 04:14:00 Test Item Value Reference Range Interpretation Comments SODIUM (test code = NA) 129 mEq/L 134-147 L POTASSIUM (test code = 4.1 mEq/L 3.4-5.0 N K) CHLORIDE (test code = 99 mEq/L 100-108 L CL) CARBON DIOXIDE (test 24 mEq/l 21-33 N code = CO2) ANION GAP (test code = 11 0-20 N GAP) GLUCOSE (test code = 107 mg/dL 70-110 N GLU) BLOOD UREA NITROGEN 31 mg/dL 7-18 H (test code = BUN) GLOMERULAR FILTRATION 47.0 70-80 L Units of measure = RATE (test code = GFR) ml/mi n/1.73 m2 CREATININE (test code = 1.1 mg/dL 0.6-1.3 N CREAT) CALCIUM (test code = 7.7 mg/dL 8.0-10.5 L CA) [id number] 04:14:00 Test Item Value Reference Range Interpretation Comments MAGNESIUM (test code = MAG) 1.77 mg/dL 1.80-2.40 L - DUP VEIN [id number] [facility]00 [facility] 1935 Sex: F Name: ZANDER SLOAN [facility] : 04/20 Age/S: 87 / F [address] [place] [address] Blvd Unit #: [id number] Loc: [place] [address] Phys: Analia Sanders SAFETY DEPOSIT CLERK Acct: [id number] Dis Date: Status: ADM IN PHONE #: [phone] Exam Date: 05/19/2022 0548 FAX #: [phone] Reason: PRE CABG EVAL EXAMS: CPT CODE: [id number] [facility] JOSE ENRIQUE [id number] PROCEDURE INFORMATION: Exam: US Duplex Lower Extremity Veins; Vein mapping Exam date and time: 05/19/2022 5:19 AM Age: 87 years old Clinical indication: Screening exam; Pre cabg eval; End-stage renal disease, operative planning for hemodialysis access creation TECHNIQUE: Imaging protocol: Real-time duplex ultrasound of the Lower Extremities with 2-D gomez scale, color Doppler flow and spectral waveform analysis with image documentation.Complete exam focused on the bilateral lower extremity veins for vein mapping. Other technique: Grayscale, color Doppler, and spectral Doppler evaluation of the bilateral lower extremity veins and arteries performed without a tourniquet for purposes of vascular mapping for hemodialysis access creation. COMPARISON: No relevant prior studies available. FINDINGS: Venous evaluation RIGHT GENERAL: Imaged right lower extremityveins demonstrate normal compressibility and color filling. RIGHT LEG: Thigh p roximal: 4.1 mm Thigh mid: 3.5 mm Thigh distal: 1.9 mm Below knee vessels are not well visualized LEFT: GENERAL: Imaged left lower extremity veins demonstrate normal compressibility and color filling. LEFT LEG: Thigh proximal: 3.2 mm Thigh mid: 2.3 mm Thigh distal: 1.6 mm Leg proximal: 1.4 mm Leg mid: 1.1 mm Leg distal: 0.7 mm IMPRESSION: Bilateral lower extremity vascular mappingas noted above. at 0618 Reported and signed by: Epifanio Morel M.D PAGE 1 Signed Report (CONTINUED) Name: HENRY SLOANARITA Patricia [facility] : 1935 Age/S: 87 / F [address] [place] [address] Blvd Unit #: [id number] Loc: [place] [address] Phys: Analia Sanders SAFETY DEPOSIT CLERK Acct: [id number] Dis Date: Status: ADM IN PHONE #: [phone] Exam Date: 05/19/2022 0548 FAX #: [phone] Reason: PRE CABG EVAL EXAMS: CPT CODE: [id number] DUP VEIN JOSE ENRIQUE [id number] <Continued> CC: Analia Sanders SAFETY DEPOSIT CLERK; Frank Putnam MD Technologist: Nannette Maldonado RDMS(AB)(OB) Trnscb Date/Time: 05/19/2022 (617) [email or web address] Orig Print D/T: S: 05/19/2022 (618) Probe: PAGE 2 Signed Report - DUP EXTRACRANIAL [id number] [facility]:00:00 [facility] : 1935 Sex: F Name: ZANDER SLOAN [facility] [place] : [birth year] Age/S: 87 / F [address] [place] [address] Blvd Unit #: [id number] Loc: [place] [address] Phys: Analia Sanders SAFETY DEPOSIT CLERK Acct: [id number] Dis Date: Status: ADM IN PHONE #: [phone] Exam Date: 05/19/2022 0548 FAX #: [phone] Reason: PRE CABG EVAL EXAMS: CPT CODE: [id number] DUP EXTRACRANIAL JOSE ENRIQUE [address]707 PROCEDURE INFORMATION: Exam: US Duplex Bilateral Extracranial Arteries, Carotid Arteries Exam date and time: 05/19/2022 5:02 AM Age: 87 years old Clinical indication: Screening exam; Patient HX: Pre cabg eval TECHNIQUE: Imaging protocol: Real-time Duplex ultrasound scan of the bilateral carotid and vertebral arteries combining gomez scale, color Doppler and spectral waveform analysis. Bilateral exam. Exam focused on the carotid arteries. COMPARISON: No relevant prior studies available. FINDINGS: Right commoncarotid artery: There is calcified plaque of the right common carotid artery. Right internal carotid artery: There is calcified plaque of the right internal carotid artery. There is elevation of the right internal carotid artery velocity to 146 cm/s. Right ICA/CCA ratio: Within normal limits. Right external carotid artery: No stenosis in the origin. Right vertebral artery: The right vertebral artery is not well visualized. Left common carotid artery: There is calcified plaque of the left common carotid artery. Left internal carotid artery: There is calcified plaque of the left internal carotid artery. There is elevation of the left internal carotid artery velocity to 140 cm/s. Left ICA/CCA ratio: Within normal limits. Left external carotid artery: No stenosis in the origin. Left vertebral artery: Unremarkable. Antegrade flow. IMPRESSION: Elevation of bilateral internal carotid artery velocities consistent with 50-69% stenosis. REFERENCES: SRU CRITERIA. The degree of internal carotid artery stenosis is based on criteria defined bythe Society of Radiologists in Ultrasound (SRU). Normal is no stenosis. Mild is less than 50% stenosis. Moderate is 50- 69% stenosis. Severe is greater than 69% stenosis to near occlusion. Near occlusion is a markedly narrowed lumen. Total occlusion is no detectable patent lumen. at 0639 Reported and signed by: Epifanio Morel M.D PAGE 1 Signed Report (CONTINUED) Name: ZANDER SLOAN [facility] : 1935 Age/S: 87 / F [address] [place] [address] Blvd Unit #: [id number] Loc: [place] [address] Phys: Analia Sanders SAFETY DEPOSIT CLERK Acct: [id number] Dis Date: Status: ADM IN PHONE #: [phone] Exam Date: 05/19/2022547 FAX #: [phone] Reason: PRE CABG EVAL EXAMS: CPT CODE: [id number] DUP EXTRACRANIAL JOSE ENRIQUE [id number] <Continued> CC: Analia Sanders SAFETY DEPOSIT CLERK; Frank Putnam MD Technologist: Nannette Maldonado RDMS(AB)(OB) Trnscb Date/Time: 05/19/2022 (638) [email or web address] Orig Print D/T: S: 05/19/2022 (638) Probe: PAGE 2 Signed Report- CT CHEST W/O [id number] 00:00:00 [facility] : 1935 Sex: F Name: ZANDER SLOAN [facility] : [birth year] Age/S: 87 / F [address] [place] [address] Blvd Unit #: [id number] Loc: [place] [address] Phys: NirmalVereniceAnalia Peñaloza SAFETY DEPOSIT CLERK Acct: [id number] Dis Date: Status: ADM IN PHONE #: [phone] Exam Date: 05/19/2022 1047 FAX #: [phone] Reason: PRE CABG EVAL EXAMS: CPT CODE: [id number] CT CHEST W/O CONTRAST 58341 PROCEDURE INFORMATION: Exam: CT Chest Without Contrast; Diagnostic Exam date and time: 05/19/2022 10:29 AM Age: 87 years old Clinical indication: Condition or disease; Other: Pre cabg eval TECHNIQUE: Imaging protocol: Diagnostic computed tomography of the chest without contrast. Radiation optimization: All CT scans at this facility use at least one of these dose optimization techniques: automated exposure control; mA and/or kV adjustment per patient size (includes targeted exams where dose is matched to clinical indication); or iterative reconstruction. COMPARISON: US DUP EXTRACRANIAL JOSE ENRIQUE 05/19/2022 5:02 AM FINDINGS: Limitations: Respiratory motion. Assessment of the viscera andvasculature may be limited by the lack of intravenous contrast. Lungs: There is partial compressive atelectasis of the lower lobes and posterior right upper lobe. Interstitial septal thickening and faint ground-glass opacities predominantly in dependent lung zones. There isno consolidation. The central airways are patent. Pleural spaces: There are bilateral pleural effusions layering to approximately 4 cm depth on the right, 1.5 cm on the left, waterattenuation. There is no pneumothorax. Heart: Calcification of the mitral annulus. Calcifications in the aortic valve plane.There is severe atherosclerotic calcification of the coronary arteries. There is trace pericardial fluid. There is a lobulated soft tissue attenuationmass partially surrounded by epicardial fat adjacent to the left anterior descending artery, estimated 3.1 x 1.8 x 1.6 cm. Mediastinal space: Esophagus is otherwise unremarkable. Lymph nodes: Enlarged left anterior diaphragmatic node series 2, image 71, 11 x 10 mm. Other subcentimeter mediastinal nodes are not enlarged by size criteria. Vasculature: The aortademonstrates moderate atherosclerotic calcification. The aorta demonstrates severe atherosclerotic calcification. Calcified plaque in the aortic root ascending aorta, aortic arch and descending aorta. Mild aortic ectasia. Focal aneurysmal dilatation of the descendingaorta. Approximate aortic diameters: Ascending aorta at the level of RPA, 3.8 cm. Descending aorta at the same level 2.3 cm. Distal aortic arch 2.4 cm. Mid descending aorta 2.9 cm. Distaldescending aorta 2.7 cm. The main pulmonary artery measures 2.9 cm. Vasculature: Unremarkable. No aortic aneurysm. Diaphragm: A moderate hiatal hernia is present. PAGE 1 Signed Report (CONTINUED) Name: ZANDER SLOAN [facility] : 1935 Age/S: 87 / F [address] [place] [address] Blvd Unit #: [id number] Loc: [place] [address] Phys: Analia aSnders SAFETY DEPOSIT CLERK Acct: [id number] Dis Date: Status: ADM IN PHONE #: [phone] Exam Date: 05/19/2022 1047 FAX #: [phone] Reason: PRE CABG EVAL EXAMS: CPT CODE: [id number] CT CHEST W/O CONTRAST 62994 <Continued> Liver: The liver is hyperatten uating, greater than 80 Hounsfield units. Otherwise normal morphology through visualized portions. Gallbladder and bile ducts: Hyperattenuation of gallbladder contents compatible with vicarious excretion of contrast versus sludge. No pericholecystic edema. Intraperitoneal space: Motion limited survey of upper abdominal contents. Peritoneal nodularity in the left upper quadrant with individual nodules measuring up to 2.5 x 1.4 cm. Bones/joints: The thoracic spine demonstrates mild degenerative changes at multiple levels. Soft tissues: There are breast conservation therapy changes in the right breast. There is no chest wall mass or fluid collection. Notes: Findings were discussed with Analia Espinal at 05/19/2022 1:28 PM CDT. IMPRESSION: 1. Cardiomegaly. Severe coronary arterial calcifications. Aortic valve calcifications. 2. Small pericardial effusion. Mass lesionin the epicardial fat adjacent to the left anterior descending artery. Given peritoneal disease, metastasis is not excluded. 3. Severe atherosclerosis of the thoracic aorta. 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 4. Small, right greater than left pleural effusions with associated compressive atelectasis. 5. Mild interstitial septal thickening predominantly in dependent portions of the lungs favoring interstitial edema. 6. Moderate-sized hiatal hernia. 7. Peritoneal nodularity suspicious for malignant peritoneal disease. 8. Hyperattenuationof liver parenchyma. Increased iron deposition, amiodarone toxicity and other metabolic disorders in the differential. at 1329 Reported and signed by: Memo Saleem M.D. PAGE 2 Signed Report (CONTINUED) Name: ZANDER SLOAN [facility] : 1935 Age/S: 87 / F [address] [place] [address] Blvd Unit #: [id number] Loc: [place] [address] Phys: Analia Sanders SAFETY DEPOSIT CLERK Acct: [id number] Dis Date: Status: ADM IN PHONE #: [phone] Exam Date: 05/19/2022 1047 FAX #: [phone] Reason: PRE CABG EVAL EXAMS: CPT CODE: [id number] CT CHEST W/O CONTRAST 63440 <Continued> CC: Analia Sanders SAFETY DEPOSIT CLERK; Frank Lentz Technologist:Jose Kaiser, RT(R)(CT) CTDI: DLP: Trnscb Date/Time: 05/19/2022 (1328)Venita Orig Print D/T: S: 05/19/2022 (1328) PAGE 3 Signed ReportGLUCOSE [id number] 21:58:00 Test Item Value Reference Range Interpretation Comments GLUCOSE BEDSIDE (test 134 MG/DL 70-110 H Perfor med by certified code = GLUBED) 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
== END 2022-06-06 16:36 | DRG 291 ==
LOC: ER 12:22 → SUPCPDRO 12:22 → ERHOLD 15:55 → 2ND 19:22 → UNDODISIN 06-01 11:35
PROVIDERS: ADMIT Internal Medicine; ATTEND Internal Medicine
PROC: 30233N1 Transfusion of Nonautologous Red Blood Cells into Peripheral Vein, Percutaneous Approach (ICD-10-PCS; principal; 2022-06-02)
DX: I11.0 Hypertensive heart disease with heart failure (principal); I50.33 Acute on chronic diastolic (congestive) heart failure; D50.9 Iron deficiency anemia, unspecified; I25.10 Atherosclerotic heart disease of native coronary artery without angina pectoris; F03.90 Unspecified dementia, unspecified severity, without behavioral disturbance, psychotic disturbance, mood disturbance, and anxiety; Z66 Do not resuscitate; R19.09 Other intra-abdominal and pelvic swelling, mass and lump; F41.9 Anxiety disorder, unspecified; R09.02 Hypoxemia; K21.9 Gastro-esophageal reflux disease without esophagitis; Z88.0 Allergy status to penicillin; Z85.3 Personal history of malignant neoplasm of breast; Z20.822 Contact with and (suspected) exposure to COVID-19
CPT/HCPCS: 36415; 51702; 71045; 71275; 78582; 80048; 80053; 80076; 82274; 82805; 82947; 83690; 83735; 83880; 84484; 85014; 85018; 85025; 85379; 85610; 85730; 86850; 86900; 86901; 87040; 93005; 93970; 94660; 94760; 96374; 97116; 97161; 97530; 99285; A9540; A9558; J0360; J1650; J1940; J2270; J7050; P9016; Q9967; U0003

== ENCOUNTER 2022-07-16 09:48 | Inpatient (IN) | payer MEDICARE ==
--- OUTSIDE RECORDS SUMMARY | 2022-07-16 09:57 | XMS REPORT | Continuity of Care Document ---
:1935 Author Organization [facility] t Address [address] [place] [address] Care Team Providers Name Role Phone Frank Putnam Attending Clinician Unavailable CAYETANO WINTERS Attending Clinician Unavailable CHAPIS HANSON Attending Clinician Unavailable Chapis Hanson Attending Clinician Sosa Hodge Attending Clinician Canales_M Attending Clinician Unavailable Love-Mbayo_A_AH Attending Clinician Unavailable Iliana Hollins Attending Clinician [phone] Frank Putnam Admitting Clinician Unavailable Yadira Gaston Admitting Clinician Unavailable SOSA HODGE Admitting Clinician Unavailable Sosa Hodge Admitting Clinician [phone] Canales_M Admitting Clinician Unavailable Love-Mbayo_A_AH Admitting Clinician Unavailable Payers Payer Name Policy Type Policy Number Effective Date Expiration Date S ource [employer] O [id number] 2021 00:00:00 [employer] [id number] 2021 (MEDICARE 00:00:00 REPLACEMENT HMO) [employer] [place] - [id number] 2019 KEMAL (MEDICARE 00:00:00 REPLACEMENT/ADVANTA GE - HMO) Problems Condition Condition Condition Status Onset Resolution Last Treating Co mments Source Name Details Category Date Date Treatment Clinician Date FALL FALL Diagnosis Active 2022-06-12 Mem oria Active 06-12 21:03:00 l 06/12/2022 00:00: Harish rodriguez 00 [facility] FLUID FLUID Diagnosis Active 2022-06-22 Me moria OVERLOAD, OVERLOAD, 06-12 21:57:00 l ACUTE CHF ACUTE CHF 00:00: Herm jose armando Active 00 06/12/2022 [facility] Essential Essential Problem Active Halima isabel hypertensi Hypertensi 05-22 Fa fredrick on on 00:00: Practic 00 e Gastroesop Gastroesop Problem Active V illage hageal hageal 05-22 Family reflux Reflux 00:00: Practic disease Disease 00 e Arthritis Arthritis Problem Active Halima isabel 05-22 Family 00:00: Practic 00 e Primary Primary Problem Active [facility] 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 00:00: 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 FLUID FLUID Diagnosis Active 2022-06-22 Mem oria OVERLOAD, OVERLOAD, 21:57:00 l UNSPECIFIE UNSPECIFIE He rmann D D Active [facility] HEART HEART Diagnosis Active 2022-06-22 Mem oria FAILURE, FAILURE, 21:57:00 l UNSPECIFIE UNSPECIFIE He rmann D D Active [facility] Benign Benign Problem Active 2022-06-19 Asnya clementine essential essential 23:17:13 l hypertensi hypertensi He rmann on on (disorder) (disorder) Active Problem 06/19/2022 [facility] Dyslipidem Dyslipide Problem Active 2022-06-19 Memoria ia reshma 23:17:13 l (disorder) (disorder) He rmann Active Problem 06/19/2022 [facility] 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 (disorder) (disorder) Active Problem 06/19/2022 [facility] Allergies, Adverse Reactions, Alerts Allergy Allergy Status Severity Reaction(s) Onset Inactive Treating Comm ents Source Name Type Date Date Clinician Penicill DA Active [place] HIVES [facility] ins 05-18 Clear 00:00: [place] [facility] Peniclli Adverse Active Info Not Commo n n Reaction Available Spiri t - [facility] penicill penicill Active Memori a in in [place] PENICILL Allergy Active [place] INS to Family substanc Practic e e Social History Social Habit Start Date Stop Date Quantity Comments Source Social History 2022-06-13 2022-06-13 [facility] daryl 19:32:18 19:32:18 Smoking Status Start Date Stop Date Source Never Smoker [facility] Medications Ordered Filled Start Stop Current Ordering Indication Dosage Frequency Signature Comments Components Source Medication Medication Date Date Medication? Clinician (SIG) Name Name Bumex No Notes: Memoria - (Same As: l 22:00: Bumex) [place] 00 Micro-K 10 Yes 10 mEq = 1 M emoria oral 7-29 cap, PO, l capsule, 16:31: BID, # 180 Her viera extended 00 cap, 0 release Refill(s), Pharmacy: [facility] [place], 162.56, cm, 06/13/22 14:35:00 CDT, Height, 80.057, kg, 06/13/22 14:35:00 CDT, Weight pantoprazol Yes 40 mg = 1 M emoria e 40 mg 7-29 tab, PO, l oral 16:30: Daily, # Tomas enteric 00 90 tab, 0 coated Refill(s), tablet Pharmacy: [facility] Pharm[facility] [place], 162.56, cm, 06/13/22 14:35:00 CDT, Height, 80.057, kg, 06/13/22 14:35:00 CDT, Weight magnesium Yes 400 mg = 1 Me moria oxide 400 7-29 tab, PO, l mg oral 16:30: Daily, X Harish n tablet 00 30 day, # 30 tab, 0 Refill(s), Pharmacy: [facility] Pharm[facility] [place], 162.56, cm, 06/13/22 14:35:00 CDT, Height, 80.057, kg, 06/13/22 14:35:00 CDT, Weight losartan 25 2021-0 Yes 25 mg = 1 M emoria mg oral 7-29 tab, PO, l tablet 16:29: Daily, # [place] 00 90 tab, 1 Refill(s), Pharmacy: [facility], 162.56, cm, 06/13/22 14:35:00 CDT, Height, 80.057, kg, 06/13/22 14:35:00 CDT, Weight predniSONE 2021-0 Yes 20 mg = 1 Me moria 20 mg oral 7-29 tab, PO, l tablet 16:28: Daily, X 3 Alejandra nn 00 day, # 3 tab, 0 Refill(s), Pharmacy: [facility], 162.56, cm, 06/13/22 14:35:00 CDT, Height, 80.057, kg, 06/13/22 14:35:00 CDT, Weight metoprolol Yes 25 mg = 1 Me moria tartrate 25 7-29 tab, PO, l mg oral 16:28: BID, # 60 Alejandra nn tablet 00 tab, 0 Refill(s), Pharmacy: [facility], 162.56, cm, 06/13/22 14:35:00 CDT, Height, 80.057, kg, 06/13/22 14:35:00 CDT, Weight benzonatate Yes 200 mg = 1 Memoria 200 mg oral 7-29 cap, PO, l capsule 16:27: TID, do Tomas 00 not crush or chew, X 10 day, # 30 cap, 0 Refill(s), Pharmacy: [facility], 162.56, cm, 06/13/22 14:35:00 CDT, Height, 80.057, kg, 06/13/22 14:35:00 CDT, Weight bumetanide 0 Yes 1 mg = 1 Mem oria 1 mg oral 7-29 tab, PO, l tablet 16:27: BID, # 60 Harish n 00 tab, 1 Refill(s), Pharmacy: [facility], 162.56, cm, 06/13/22 14:35:00 CDT, Height, 80.057, kg, 06/13/22 14:35:00 CDT, Weight dextrometho Yes 10 mL, PO, Memoria rphan-guaiF 7 Q6H, PRN l ENesin 10 16:27: Cough, X Herm jose armando mg-200 mg/5 00 14 day, # mL oral 120 mL, 0 liquid Refill(s), Pharmacy: [facility], 162.56, cm, 06/13/22 14:35:00 CDT, Height, 80.057, kg, 06/13/22 14:35:00 CDT, Weight albuterol-i Yes 3 mL, NEB, Memoria pratropium 06-17 RQ4H, # l 2.5-0.5 mg 16:26: 540 mL, 0 He rmann inhalation 00 Refill(s), solution Pharmacy: [facility], 162.56, cm, 06/13/22 14:35:00 CDT, Height, 80.057, kg, 06/13/22 14:35:00 CDT, Weight aspirin 81 Yes 81 mg = 1 Me moria mg tablet, 06-17 tab, PO, l enteric 16:26: Daily, # Harish n coated 00 90 tab, 0 Refill(s), Pharmacy: [facility], 162.56, cm, 06/13/22 14:35:00 CDT, Height, 80.057, kg, 06/13/22 14:35:00 CDT, Weight magnesium No Notes: Memori a sulfate 06-17 WASTE: F/P l 14:02: - Sink; E - Municipal Trash Bin potassium Yes /= 14 Memoria chloride 06-17 Uruguayan, l 14:02: march dissolve each 20 mEq tablet in 4 oz of water. Allow about 2 minutes for the tablets to disintegra te. Stir before giving to prepare slurry and administer . Please exclude patient's with feeding tube less than 14 [place]ruguayan (Dobhoff, J-tube, etc) and pediatric and patients. aspirin No Notes: Do Memor ia 06-15 not crush l 14:00: or chew. [place] (Same As: Ecotrin) predniSONE No 20 mg, 1 Mem oria 7-27 tab, l 13:00: Route: PO, Drug form: TAB, Daily, Dosing Weight 80.057, kg, Start date: 06/15/22 8:00:00 CDT, Duration: 30 day, Stop date: 07/14/22 8:00:00 CDT, 0 potassium No /= 14 Memoria chloride 20 7-27 Uruguayan, l mEq oral 11:31: march [place] tablet, 00 dissolve extended each 20 release mEq tablet (KCL) in 4 oz of water. Allow about 2 minutes for the tablets to disintegra te. Stir before giving to prepare slurry and administer . Please exclude patient's with feeding tube less than 14 [place] (Dobhoff, J-tube, etc) and pediatric and patients. metoprolol No Notes: Memor ia tartrate 06-15 (Same as: l 02:00: Lopressor) Tomas 00 Cepacol No Notes: Memoria Sore Throat - Same as: l 15 mg-3.6 19:24: Cepacol Alejandra nn mg mucous 00 membrane lozenge anastrozole No Notes: Sanya clementine - (Same as: l 14:00: Arimidex) Hazardous Drug Group 1: Antineopla stic Hazardous Drug -- Refer to safe handling procedure PPE Matrix WASTE: F/P - Black; E Yellow omeprazole No 20 mg, 1 Mem oria 7-26 cap, l 14:00: Route: PO, Drug form: DRC, Daily, Dosing Weight 63.636, kg, Start date: 06/14/22 9:00:00 CDT, Duration: 30 day, Stop date: 07/13/22 9:00:00 CDT Protonix No Notes: Memoria 7-26 Tablet l 14:00: should not be chewed or crushed. (Same as: Protonix) atorvastati No Notes: Sanya clementine n - (Same as: l 02:00: Lipitor) docusate No Notes: Memoria 7-25 (Same as: l 14:00: Colace) Tomas 00 (Do Not Crush) Saline No Notes: Memoria Flush 0.9% 7-25 (Same as: l 14:00: BD Posiflush) anastrozole Yes 1 mg = 1 Me moria 1 mg oral 7-25 tab, PO, l tablet 13:59: Daily Tomas 00 amLODIPine No 5 mg = 1 Mem oria 5 mg oral 7-25 tab, PO, l tablet 13:59: Daily [place]omas 00 atorvastati No 40 mg = 1 M emoria n 40 mg 7-25 tab, PO, l oral tablet 13:59: Bedtime Her viera hydrochloro No 12.5 mg = M emoria thiazide 7-25 1 tab, PO, l 12.5 mg 13:59: Daily Tomas oral tablet 00 omeprazole No 20 mg = 1 Me moria 20 mg oral 7-25 cap, PO, l delayed 13:59: Daily Tomas release 00 capsule losartan No 100 mg = 1 Mem oria 100 mg oral 7-25 tab, PO, l tablet 13:59: Daily 00 rosuvastati Yes 5 mg = 1 Me moria n 5 mg oral 7-25 tab, PO, l tablet 13:59: Bedtime Tomas 00 furosemide No Notes: Memor ia 7-25 (Same as: l 13:00: Lasix) MEDICATION WASTE Product Size: 40 mg Product Wasted: ___ mg albuterol-i No Notes: Sanya clementine pratropium 7-25 (Same as: l 2.5-0.5 mg 12:00: Duoneb) Herm jose armando inhalation solution levofloxaci No Notes: Do M emoria n 7-25 not give l 09:00: w/antacids [place] , dairy pdt & minerals Take 1 hr before or 2 hr after dairy pdt (Same as:Levaqui n) albuterol No Notes: SEE Me moria 0.083% 7-25 RT l inhalation 08:42: DOCUMENTAT H ermann solution 00 ION (Same as: Proventil) predniSONE No Notes: Memor ia 7-25 Take with l 08:41: food. D10W No 250 mL, Memoria (bolus) IV 7-25 999 ml/hr, l 07:01: Route: IV, Drug Form: INJ, Dosing Weight 63.636, kg, PRN, PRN Blood Glucose Results, Start date: 06/13/22 2:01:00 CDT, Duration: 30 day, Stop date: 07/13/22 2:00:00 CDT, Infuse over: 0.3 hr, 0 Lovenox No Notes: Memoria 7-25 (Same as: l 07:00: Lovenox) Saline No Notes: Memoria Flush 0.9% 7-25 (Same as: l 06:53: BD Posiflush) Dextrose No 25 mL, Memoria 50% Syringe 7-25 Route: l (D50W) 06:51: IVP, Dosing Weight 63.636, kg, PRN, PRN Blood Glucose Results, Start date: 06/13/22 1:51:00 CDT, Duration: 30 day, Stop date: 07/13/22 1:50:00 CDT glucagon No 1 mg, Memoria 7-25 Route: IM, l 06:51: Drug form: PDR/INJ, PRN, Dosing Weight 63.636, kg, PRN Blood Glucose Results, Start date: 06/13/22 1:51:00 CDT, Duration: 30 day, Stop date: 07/13/22 1:50:00 CDT, 0 ondansetron No Notes: Sanya clementine 7-25 (Same as: l 06:51: Zofran) MEDICATION WASTE Product Size: 4 mg Product Wasted: ___ mg melatonin No Notes: Memori a 7-25 (Same as: l 06:51: Melatonin) acetaminoph No Notes: Do M emoria en 7-25 not exceed l 06:51: 4 gm/day. Tomas 00 (Same as: Tylenol) dextrometho No Notes: Sanya clementine rphan-guaiF 06-13 (dextromet l ENesin 10 06:51: horphan-gu He rmann mg-200 mg/5 00 aifenesin mL oral 10-100mg/5 liquid ml 10 ml oral SOLN ud) (Same as: Robitussin DM) hydrALAZINE No Notes: Sanya clementine 06-13 (Same as: l 06:51: Apresoline [place] 00 ) Push over 5 minutes Tessalon No Notes: Memoria Perles 06-13 (Same As: l 06:51: Tessalon [place] 00 Perles) "Do Not Crush" potassium No /= 14 Memoria chloride -25 [place]ruguayan, l 06:51: may [place] 00 dissolve each 20 mEq tablet in 4 oz of water. Allow about 2 minutes for the tablets to disintegra te. Stir before giving to prepare slurry and administer . Please exclude patient's with feeding tube less than 14 [place] (Dobhoff, J-tube, etc) and pediatric and patients. potassium No Notes: Memori a phosphate-s 06-13 (Same as: l odium 06:51: Phos-NaK) Tomas phosphate 00 Each 1.5 250 mg-280 gm pkt has mg-160 mg 250mg oral powder phosphorou for s. Mix reconstitut w/2.5oz ion water and stir. potassium No Notes: Memori a phosphate + 06-13 (Same as: l Sodium 06:51: K [place] Chloride 00 Phosphate. 0.9% IV 250 ) Do not mL infuse phosphorou s concurrent ly in the same line as TPN or IVF that contains calcium. For double lumen central lines, phosphorou s may be infused in a separate lumen from TPN. 1 mMol phoshate has 1.47 mEq potassium Infuse over 4 hours sodium No Notes: Memoria phosphate + -25 Infuse l Dextrose 5% 06:51: over 4 Herm jose armando in Water IV 00 hour. Do 250 mL not infuse phosphorou s concurrent ly in the same line as TPN or IVF that contains calcium. For double lumen central lines, phosphorou s may be infused in a separate lumen from TPN. magnesium No Notes: Memori a sulfate 7-25 WASTE: F/P l 06:51: - Sink; E Tomas 00 - Municipal Trash Bin magnesium No Notes: Memori a oxide 7-25 (Same as: l 06:51: Mag-Ox [place] 400) Magnesium oxide 750bb=183v g elemental magnesium Dose=____m g magnesium oxide (___mg elemental magnesium) calcium No Notes: Memoria gluconate 7-25 WASTE: F/P l 06:51: - Sink; E Tomas - Municipal Trash Bin calcium No Notes: Memoria gluconate + 7-25 WASTE: F/P l Sodium 06:51: - Sink; E Harish n Chloride 00 - 0.9% IV 120 Municipal mL Trash Bin Lasix No Notes: Memoria 7-25 (Same as: l 02:15: Lasix) [place]omas MEDICATION WASTE Product Size: 40 mg Product Wasted: ___ mg dexamethaso No 10 mg, 2.5 Memoria ne 7-25 mL, Route: l 01:03: IVP, Drug form: INJ, ONCE, Dosing Weight 63.636, kg, Priority: STAT, Start date: 06/12/22 20:03:00 CDT, Stop date: 06/12/22 20:03:00 CDT, 0 albuterol-i No Notes: Sanya clementine pratropium 7-25 (Same as: l 2.5-0.5 mg 01:03: Duoneb) Herm jose armando inhalation 00 solution Tramadol Tramadol Yes Jose Alberto 1 tablet Common HCl HCl 6-30 [facility] Hydrochloro Hydrochloro Yes Jose Alberto not Common thiazide thiazide Ring defined Spir it [facility] Anastrozole Anastrozole Yes Jose Alberto not Common Ring defined [facility] Omeprazole Omeprazole Yes Jose Alberto not Common Ring defined [facility] Losartan Losartan Yes Jose Alberto not Comm on Potassium Potassium Ring defined Sp amber - [facility] anastrozole anastrozole No 1 Q1D [...] route. omeprazole omeprazole No 1 Q1D omeprazole [facility] 20 mg 20 mg 20 mg Family delayed delayed delayed Practi c release,dis release,dis release,di e integrating integrating sintegrati tablet Take tablet Take ng tablet 1 tablet 1 tablet Take 1 every day every day tablet by oral by oral every day route route by oral before before route meals. meals. before meals. Vital Signs Vital Name Observation Time Observation Value Comments Source Heart Rate 2022-06-17 16:38:41 [facility] [place] Systolic (mm Hg) 2022-06-17 16:38:36 Sanya rial [place] Diastolic (mm Hg) 2022-06-17 16:38:36 Mem orial [place] Heart Rate 2022-06-17 16:38:36 [facility] [place] Heart Rate 2022-06-17 13:21:37 [facility] [place] Systolic (mm Hg) 2022-06-17 13:21:31 Sanya rial [place] Diastolic (mm Hg) 2022-06-17 13:21:31 Mem orial [place] Temperature Oral (F) 2022-06-17 13:19:30 98.3 F [facility] [place] Respitory Rate 2022-06-17 12:55:00 Memori al [place] Temperature Oral (F) 2022-06-17 09:42:49 97.5 F [facility] [place] Systolic (mm Hg) 2022-06-17 09:42:39 Sanya rial [place] Diastolic (mm Hg) 2022-06-17 09:42:39 Mem orial [place] Temperature Oral (F) 2022-06-17 05:57:22 97.5 F [facility] [place] Respitory Rate 2022-06-17 01:23:00 Memori al [place] Respitory Rate 2022-06-16 12:48:00 Memori al [place] Height 2022-06-13 19:35:00 162.56 cm [facility] [place] Weight 2022-06-13 19:35:00 [facility] [place] BMI Calculated 2022-06-13 19:35:00 Memori al [place] Respitory Rate 2022-06-13 11:35:00 Memori al [place] Respitory Rate 2022-06-13 11:00:00 Memori al [place] Systolic (mm Hg) 2022-06-13 11:00:00 Sanya rial [place] Diastolic (mm Hg) 2022-06-13 11:00:00 Mem orial [place] Respitory Rate 2022-06-13 10:00:00 Memori al [place] Systolic (mm Hg) 2022-06-13 10:00:00 Sanya rial [place] Diastolic (mm Hg) 2022-06-13 10:00:00 Mem orial [place] Systolic (mm Hg) 2022-06-13 09:14:00 Sanya rial [place] Diastolic (mm Hg) 2022-06-13 09:14:00 Mem orial [place] Temperature Oral (F) 2022-06-13 01:05:00 98.1 F [facility] [place] Height 2022-06-13 00:20:00 165.1 cm [facility] [place] BMI Calculated 2022-06-13 00:20:00 Memori al [place] Weight 2022-06-13 00:20:00 [facility] [place] Heart Rate 2022-06-13 00:20:00 [facility] Tomas Temperature Oral (F) 2022-06-13 00:20:00 98 F [facility] Tomas Procedures Procedure Date / Time Performed Performing Clinician Sourc e [id number] 2022-05-25 00:00:00 LEEGA [facility] [id number] 2022-05-25 00:00:00 LEEGA [facility] [id number] 2022-05-25 00:00:00 PATMA.12 [facility] [id number] 2022-05-25 00:00:00 PATMA.12 [facility] [id number] 2022-05-18 00:00:00 RASSA [facility] [id number] 2022-05-18 00:00:00 MIGEL Bhat [facility] [id number] 2022-05-18 00:00:00 MIGEL LEIBERMAN [facility] Encounters Start End Encounter Admission Attending Care Care Encounter Source Date/Time Date/Time Type Type Clinicians Facility Department ID 2022-06-20 Outpatient [facility] [id number] [place] 11:40:57 [id number] [facility] 2022-06-16 Outpatient [facility] [id number] [place] 17:07:26 [id number] [facility] 2022-06-15 Outpatient [facility] [id number] [place] 16:25:36 [id number] [facility] 2022-05-18 Inpatient EM ADDY Putnam INTE.02 [id number] [id number] 14:24:00 Frank [id number] [facility] 2022-02-08 Outpatient STLMLC STLMLC [id number] Common 16:02:01 [facility] 2021-12-15 Outpatient STLMLC STLMLC [id number] Common 12:01:20 [id number] [facility] 2021-12-15 Outpatient STLMLC STLMLC [id number] Common 11:54:02 [id number] [facility] 2022-07-13 2022-07-13 Outpatient [facility] [id number] [place] 14:00:00 14:00:00 Critical access hospital 2022-06-13 2022-06-17 Inpatient [facility] [id number] Memoria 00:20:04 22:00:00 [facility] 00 l [facility] 2022-06-13 2022-06-17 Inpatient E ALEC HANSON MED [id number] 01:02:00 17:00:00 CHAPIS Faria a [facility] 2022-06-12 2022-06-17 Outpatient ALEC Hanson [place] [id number] 19:20:04 17:00:00 Chapis 00 2022-06-12 2022-06-12 Outpatient ALEC Hodge [place] [id number] 19:20:04 19:20:[address] 2022-06-03 2022-06-03 Outpatient Canales_M DMG DMG [id number] [facility] 07:17:00 07:17:00 0715 [facility]ica l Group 2022-05-20 2022-05-26 Inpatient EM Indy HCACL INTE.02 [id number] [facility] 14:05:00 14:06:00 Frank 93 [facility] 2022-05-20 2022-05-26 Inpatient EM Indy HCACL INTE.02 [id number] [facility] 14:05:00 14:06:00 Frank [id number] [facility] 2021-11-11 2021-11-11 Outpatient Canales_M DMG DMG [id number] [facility] 10:30:00 10:30:00 1223 Medica l Group 2021-05-17 2021-05-17 Outpatient Love-Mbayo VFP VF [id number] [facility] 02:54:00 02:54:00 _A_AH [id number] Family Practic e 2021-02-22 2021-02-22 Outpatient Canales_M DMG DMG [id number] [facility] 11:38:00 11:38:00 0405 Medica l Group 2021-02-22 2021-02-22 Outpatient Hollins, DMG DMG [id number] 00:00:00 00:00:00 Iliana [id number] Mary [id number] 2021-02-19 2021-02-19 Outpatient Canales_M DMG DMG [id number] [facility] 11:15:00 11:15:00 0402 Medica l Group 2020-10-06 2020-10-06 Outpatient STLMLC STLMLC [id number] Common 00:00:00 00:00:00 [facility] 2020-09-29 2020-09-29 Outpatient STLMLC STLMLC [id number] Common 00:00:00 00:00:00 [facility] 2020-09-22 2020-09-22 Outpatient STLMLC STLMLC [id number] Common 00:00:00 00:00:00 [facility] 2020-09-10 2020-09-10 Outpatient STLMLC STLMLC [id number] Common 00:00:00 00:00:00 [facility] 2020-05-19 2020-05-19 [facility] [id number] Common 08:30:00 08:30:00 [facility] 2020-04-30 2020-04-30 Outpatient Love-Mbayo VFP VFP [address] [place] [address] 11:59:00 11:59:00 _A_AH [id number] Family Practic e 2020-04-20 2020-04-20 Outpatient Love-Mbayo VFP VFP [address] [place] [address] 06:26:00 06:26:00 _A_AH [id number] Family Practic e 2020-03-30 2020-03-30 Outpatient Love-Mbayo VFP VFP [address] [place] [address] 02:45:00 02:45:00 _A_AH [id number] Family Practic e 2020-02-24 2020-02-24 [facility] [id number] Common 14:30:00 14:30:00 t [facility] Bone and Spiri t and 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 2020-01-29 2020-01-29 Out[facility] [id number] Common 14:19:00 14:19:00 t [facility] Bone [facility] Sp[facility] t and [facility] 2020-01-28 2020-01-28 Out[facility] [id number] Common 10:45:00 10:45:00 t [facility] Bone and Spiri t and Joint [facility] 2020-01-08 2020-01-08 Outpatient Love-Mbayo VFP VFP [id number] [facility] 07:20:00 07:20:00 _A_ [id number] Family Practic e 2019-06-12 2019-06-12 [facility]patient [facility] [id number] Common 11:07:00 11:07:00 t [facility] Bone and Spiri t and [facility] 2019-06-06 2019-06-06 Outpatient [facility] [id number] Common 10:00:00 10:00:00 t [facility] Sp[facility] and [facility] 2019-05-20 2019-05-20 Outpatient [facility] [id number] Common 09:30:00 09:30:00 t [facility] Bone and Spiri t and Joint [facility] Results Test Description Test Time Test Comments Results Result Comments Source CHEM PANEL 2022-06-17 12:01:00 Test Item Value Reference Range Interpretation Comme nts Glucose Lvl (test code = Glucose Lvl) 104 70-99 [facility] [id number] 12:01:00 Test Item Value Reference Range Interpretation Comments BUN (test code = BUN) 29 7-22 [facility] [employer] [id number] 12:01:00 Test Item Value Reference Range Interpretation Comments Creatinine Lvl (test code = Creatinine 0.98 0.50-1.40 Lvl) [facility] [id number] 12:01:00 Test Item Value Reference Range Interpretation Comments Sodium Lvl (test code = Sodium Lvl) 133 135-145 [facility] [employer] [id number] 12:01:00 Test Item Value Reference Range Interpretation Comments Potassium Lvl (test code = Potassium 2.7 3.5-5.1 Lvl) [facility] [employer] [id number] 12:01:00 Test Item Value Reference Range Interpretation Comments Chloride Lvl (test code = Chloride Lvl) 91 95-109 [facility] [employer] [id number] 12:01:00 Test Item Value Reference Range Interpretation Comments CO2 (test code = CO2) 33 24-32 [facility] [employer] [id number] 12:01:00 Test Item Value Reference Range Interpretation Comments AGAP (test code = AGAP) 11.7 10.0-20.0 [place] [id number] 12:01:00 Test Item Value Reference Range Interpretation Comments Calcium Lvl (test code = Calcium Lvl) 7.9 8.5-10.5 [place] [id number] 12:01:00 Test Item Value Reference Range Interpretation Comments eGFR (test code = eGFR) 56 [place] 128852-07-29 12:01:00 Test Item Value Reference Range Interpretation Comments Magnesium Lvl (test code = Magnesium 1.7 1.8-2.4 Lvl) [facility]2022-07-27 09:07:00 Test Item Value Reference Range Interpretation Comments eGFR (test code = eGFR) 59 [place] 222452-07-27 09:07:00 Test Item Value Reference Range Interpretation Comments WBC (test code = WBC) 7.2 3.7-10.4 [place] 222452-07-27 09:07:00 Test Item Value Reference Range Interpretation Comments RBC (test code = RBC) 3.06 4.20-5.40 [place] 222452-07-27 09:07:00 Test Item Value Reference Range Interpretation Comments Hgb (test code = Hgb) 7.4 12.0-16.0 [place] 222452-07-27 09:07:00 Test Item Value Reference Range Interpretation Comments Hct (test code = Hct) 22.5 36.0-48.0 [place] 222452-07-27 09:07:00 Test Item Value Reference Range Interpretation Comments MCV (test code = MCV) 73.6 80.0-98.0 [place] 222452-07-27 09:07:00 Test Item Value Reference Range Interpretation Comments MCH (test code = MCH) 24.2 pg 27.0-31.0 [place] 222452-07-27 09:07:00 Test Item Value Reference Range Interpretation Comments MCHC (test code = MCHC) 32.9 32.0-36.0 [place] 222452-07-27 09:07:00 Test Item Value Reference Range Interpretation Comments RDW (test code = RDW) 20.8 11.5-14.5 [place] 222452-07-27 09:07:00 Test Item Value Reference Range Interpretation Comments Platelet (test code = Platelet) 286 133-450 [place] 222452-07-27 09:07:00 Test Item Value Reference Range Interpretation Comments MPV (test code = MPV) 7.4 7.4-10.4 [place] 222452-07-27 09:07:00 Test Item Value Reference Range Interpretation Comments Segs (test code = Segs) 73.8 45.0-75.0 [place] 222452-07-27 09:07:00 Test Item Value Reference Range Interpretation Comments Lymphocytes (test code = Lymphocytes) 17.2 20.0-40.0 [place] 222452-07-27 09:07:00 Test Item Value Reference Range Interpretation Comments Monocytes (test code = Monocytes) 8.8 2.0-12.0 [place] 222452-07-27 09:07:00 Test Item Value Reference Range Interpretation Comments Neutrophils # (test code = Neutrophils 5.3 1.5-8.1 #) [facility]bcruouHKRPBZEERY6665[facility] 09:07:00 Test Item Value Reference Range Interpretation Comments Lymphocytes # (test code = Lymphocytes 1.2 1.0-5.5 #) [place] 222452-07-27 09:07:00 Test Item Value Reference Range Interpretation Comments Monocytes # (test code 0.6 See_Comment [Aut omated message] The = Monocytes #) system which generated this result tra nsmitted reference range : <=0.8. The reference r hugo was not used to int erpret this result as normal/abnormal . [facility]oundAvmeymnKPWRMXJKKV2949-78-45 09:07:00 Test Item Value Reference Range Interpretation Comments Microcyte (test code = 1+ *ABN*(06/15/22 Microcyte) 4:07 AM) [place] 128852-07-27 09:07:00 Test Item Value Reference Range Interpretation Comments Glucose Lvl (test code = Glucose Lvl) 108 70-99 [place] 128852-07-27 09:07:00 Test Item Value Reference Range Interpretation Comments BUN (test code = BUN) 29 7-22 [place] 128852-07-27 09:07:00 Test Item Value Reference Range Interpretation Comments Creatinine Lvl (test code = Creatinine 0.94 0.50-1.40 Lvl) [place] 128852-07-27 09:07:00 Test Item Value Reference Range Interpretation Comments Sodium Lvl (test code = Sodium Lvl) 131 135-145 [place] 128852-07-27 09:07:00 Test Item Value Reference Range Interpretation Comments Potassium Lvl (test code = Potassium 3.2 3.5-5.1 Lvl) [place] 128852-07-27 09:07:00 Test Item Value Reference Range Interpretation Comments Chloride Lvl (test code = Chloride Lvl) 93 95-109 [place] 128852-07-27 09:07:00 Test Item Value Reference Range Interpretation Comments CO2 (test code = CO2) 31 24-32 [place] 128852-07-27 09:07:00 Test Item Value Reference Range Interpretation Comments Calcium Lvl (test code = Calcium Lvl) 8.0 8.5-10.5 [place] 128852-07-27 09:07:00 Test Item Value Reference Range Interpretation Comments Total Protein (test code = Total 5.7 6.4-8.4 Protein) [place] 128852-07-27 09:07:00 Test Item Value Reference Range Interpretation Comments Albumin Lvl (test code = Albumin Lvl) 2.6 3.5-5.0 [place] 128852-07-27 09:07:00 Test Item Value Reference Range Interpretation Comments ALT (test code = ALT) 18 See_Comment [Auto mated message] The system which nerated this result transmit lavon reference range : <=65. The reference range was not used to interpr et this result as blayne l/abnormal. [place] 128852-07-27 09:07:00 Test Item Value Reference Range Interpretation Comments AST (test code = AST) 28 See_Comment [Auto mated message] The system which [employer] nerated this result transmit lavon reference range : <=37. The reference range was not used to interpr et this result as blayne l/abnormal. [place] 128852-07-27 09:07:00 Test Item Value Reference Range Interpretation Comments Alk Phos (test code = Alk Phos) 44 39-136 [address]07-27 09:07:00 Test Item Value Reference Range Interpretation Comments Bili Total (test code = Bili Total) 1.1 0.2-1.3 [place] 128852-07-27 09:07:00 Test Item Value Reference Range Interpretation Comments AGAP (test code = AGAP) 10.2 10.0-20.0 [place] 128852-07-27 09:07:00 Test Item Value Reference Range Interpretation Comments B/C Ratio (test code = B/C Ratio) 31 1 6-25 [place] 128852-07-27 09:07:00 Test Item Value Reference Range Interpretation Comments Globulin (test code = Globulin) 3.1 2.7-4.2 [place] 128852-07-27 09:07:00 Test Item Value Reference Range Interpretation Comments A/G Ratio (test code = A/G Ratio) 0.8 1 0.7-1.6 [place] 128852-07-26 18:34:00 Test Item Value Reference Range Interpretation Comments Glucose Lvl (test code = Glucose Lvl) 110 70-99 [place] 128852-07-26 18:34:00 Test Item Value Reference Range Interpretation Comments BUN (test code = BUN) 28 7-22 [place] 128852-07-26 18:34:00 Test Item Value Reference Range Interpretation Comments Creatinine Lvl (test code = Creatinine 1.05 0.50-1.40 Lvl) [place] 128852-07-26 18:34:00 Test Item Value Reference Range Interpretation Comments Sodium Lvl (test code = Sodium Lvl) 132 135-145 [place] 128852-07-26 18:34:00 Test Item Value Reference Range Interpretation Comments Potassium Lvl (test code = Potassium 4.4 3.5-5.1 Lvl) [place] 128852-07-26 18:34:00 Test Item Value Reference Range Interpretation Comments Chloride Lvl (test code = Chloride Lvl) 96 95-109 [place] 128852-07-26 18:34:00 Test Item Value Reference Range Interpretation Comments CO2 (test code = CO2) 27 24-32 [place] 128852-07-26 18:34:00 Test Item Value Reference Range Interpretation Comments Calcium Lvl (test code = Calcium Lvl) 8.5 8.5-10.5 [facility]2022-07-26 18:34:00 Test Item Value Reference Range Interpretation Comments AGAP (test code = AGAP) 13.4 10.0-20.0 [place] 128852-07-26 18:34:00 Test Item Value Reference Range Interpretation Comments eGFR (test code = eGFR) 51 [facility]oundQforzhmOIRRVJHCPU8663-91-76 18:34:00 Test Item Value Reference Range Interpretation Comments WBC (test code = WBC) 13.5 3.7-10.4 [place] 222452-07-26 18:34:00 Test Item Value Reference Range Interpretation Comments RBC (test code = RBC) 3.63 4.20-5.40 [place] 222452-07-26 18:34:00 Test Item Value Reference Range Interpretation Comments Hgb (test code = Hgb) 8.7 12.0-16.0 [place] 222452-07-26 18:34:00 Test Item Value Reference Range Interpretation Comments Hct (test code = Hct) 28.2 36.0-48.0 [place] 222452-07-26 18:34:00 Test Item Value Reference Range Interpretation Comments MCV (test code = MCV) 77.5 80.0-98.0 [facility]oundAxfoldzLLBSIZMCTU0940-23-82 18:34:00 Test Item Value Reference Range Interpretation Comments MCH (test code = MCH) 24.0 pg 27.0-31.0 [place] 222452-07-26 18:34:00 Test Item Value Reference Range Interpretation Comments MCHC (test code = MCHC) 30.9 32.0-36.0 [place] 222452-07-26 18:34:00 Test Item Value Reference Range Interpretation Comments RDW (test code = RDW) 21.2 11.5-14.5 [place] 222452-07-26 18:34:00 Test Item Value Reference Range Interpretation Comments Platelet (test code = Platelet) 324 133-450 [facility]oundQxgkjrpIAKLMPVZBO5426-58-47 18:34:00 Test Item Value Reference Range Interpretation Comments MPV (test code = MPV) 7.6 7.4-10.4 [place] 222452-07-26 18:34:00 Test Item Value Reference Range Interpretation Comments Plt Morph (test code = Normal (06/14/22 1:34 Plt Morph) PM) [facility]oundMgthduwBLKXDQGBFH4409-57-07 18:34:00 Test Item Value Reference Range Interpretation Comments Segs (test code = Segs) 89.0 45.0-75.0 [facility] MoundQajqtsfARVATAFHNC2932-39-36 18:34:00 Test Item Value Reference Range Interpretation Comments Bands (test code = 3.0 See_Comment [Automat ed message] The Bands) system which ge nerated this result transmit lavon reference range : <=11.0. The reference r hugo was not used to interpr et this result as blayne l/abnormal. [facility] MoundGniufsfBHUAPEXIDU1011-56-13 18:34:00 Test Item Value Reference Range Interpretation Comments Lymphocytes (test code = Lymphocytes) 8.0 20.0-40.0 [facility]oundPidkdkzSDCBGWTKJN6819-14-44 18:34:00 Test Item Value Reference Range Interpretation Comments Monocytes (test code = Monocytes) 0.0 2.0-12.0 [facility]oundHwmtmhcEEGVVUWGBH8179-69-49 18:34:00 Test Item Value Reference Range Interpretation Comments Neutrophils # (test code = Neutrophils 12.4 1.5-8.1 #) [facility]oundHuwohkfCWWLOQEWCS2130-99-76 18:34:00 Test Item Value Reference Range Interpretation Comments Lymphocytes # (test code = Lymphocytes 1.1 1.0-5.5 #) [facility]oundGptoktiDJSIPKBCFU9616-66-84 18:34:00 Test Item Value Reference Range Interpretation Comments Monocytes # (test code 0.0 See_Comment [Aut omated message] The = Monocytes #) system which generated this result tra nsmitted reference range : <=0.8. The reference r hugo was not used to int erpret this result as normal/abnormal . [facility] MoundTbaywwsZJFSLTNCOY4325-13-46 18:34:00 Test Item Value Reference Range Interpretation Comments Hypochrom (test code = 1+ (06/14/22 1:34 PM) Hypochrom) [facility]2022-07-25 15:00:00 Test Item Value Reference Range Interpretation Comments Albumin BF (test code = Albumin BF) 0.6 [place] 987722-07-25 15:00:00 Test Item Value Reference Range Interpretation Comments Alb BF Type (test Pleural *NA*(06/13/22 code = Alb BF Type) 10:00 AM) [facility]2022-07-25 15:00:00 Test Item Value Reference Range Interpretation Comments CellCnt BF Type (test Thoracen (06/13/22 10:00 code = CellCnt BF AM) Type) [facility]2022-07-25 15:00:00 Test Item Value Reference Range Interpretation Comments Color BF (test code = Yellow (06/13/22 10:00 Color BF) AM) [facility]2022-07-25 15:00:00 Test Item Value Reference Range Interpretation Comments Clarity BF (test code = Clear (06/13/22 10:00 Clarity BF) AM) [facility]2022-07-25 15:00:00 Test Item Value Reference Range Interpretation Comments Supernat BF (test code = Yellow *ABN*(06/13/22 Supernat BF) 10:00 AM) [facility]2022-07-25 15:00:00 Test Item Value Reference Range Interpretation Comments Nucleated Cells BF (test code = 273 Nucleated Cells BF) [facility]2022-07-25 15:00:00 Test Item Value Reference Range Interpretation Comments RBC BF (test code = RBC BF) 419 [facility]2022-07-25 15:00:00 Test Item Value Reference Range Interpretation Comments Neutrophils BF (test code = Neutrophils 10 BF) [facility]2022-07-25 15:00:00 Test Item Value Reference Range Interpretation Comments Lymph BF (test code = Lymph BF) 36 [facility]2022-07-25 15:00:00 Test Item Value Reference Range Interpretation Comments Macrophage BF (test code = Macrophage 48 BF) [facility]2022-07-25 15:00:00 Test Item Value Reference Range Interpretation Comments Meso BF (test code = Meso BF) 6 [facility]2022-07-25 15:00:00 Test Item Value Reference Range Interpretation Comments Comment BF (test Differential confirmed. code = Comment BF) mesothlial cells and mixed inflammation. performed by Dr. Rosendo Chapa [facility]2022-07-25 15:00:00 Test Item Value Reference Range Interpretation Comments Glucose BF (test code = Glucose BF) 154 [facility] [id number] 15:00:00 Test Item Value Reference Range Interpretation Comments Gluc BF Type (test Pleural *NA*(06/13/22 code = Gluc BF Type) 10:00 AM) [facility]annB[facility] [id number] 15:00:00 Test Item Value Reference Range Interpretation Comments LDH BF (test code = LDH BF) 74 [facility] [id number] 15:00:00 Test Item Value Reference Range Interpretation Comments LDH BF Type (test Pleural *NA*(06/13/22 code = LDH BF Type) 10:00 AM) [facility] CenterannBODY [id number] 15:00:00 Test Item Value Reference Range Interpretation Comments pH BF Type (test code Pleural (06/13/22 10:00 = pH BF Type) AM) [facility] [id number] 15:00:00 Test Item Value Reference Range Interpretation Comments pH BF (test code = pH BF) 8.00 1 [facility] [id number] 15:00:00 Test Item Value Reference Range Interpretation Comments Protein BF (test code = Protein BF) 1.0 [facility] [id number] 15:00:00 Test Item Value Reference Range Interpretation Comments Prot BF Type (test Pleural *NA*(06/13/22 code = Prot BF Type) 10:00 AM) [facility] Rramvp8599-51-01 15:00:00 Test Item Value Reference Range Interpretation Comments Gram Stain Report Few WBC's No Organisms (test code = Gram Seen Stain Report) [facility]annCulture: Aspirate/Body Fluid/Fvysoi1370-07-14 15:00:00 Test Item Value Reference Range Interpretation Comments Culture: Aspirate/Body Fluid/Tissue No Growth (test code = Culture: Aspirate/Body Fluid/Tissue) [facility] CenterannCARDIAC [id number] 08:03:00 Test Item Value Reference Range Interpretation Comments HS Troponin I 1 Hr (test code = HS 50 Troponin I 1 Hr) [facility] CenterannCARDIAC [id number] 08:03:00 Test Item Value Reference Range Interpretation Comments HS Troponin I 0 to 1 See Note 5(06/13/22 Hour Delta (test code = 3:03 AM) HS Troponin I 0 to 1 Hour Delta) [facility]2022-07-25 08:03:00 Test Item Value Reference Range Interpretation Comments Glucose Lvl (test code = Glucose Lvl) 142 70-99 [place] 128852-07-25 08:03:00 Test Item Value Reference Range Interpretation Comments BUN (test code = BUN) 21 7-22 [place] 128852-07-25 08:03:00 Test Item Value Reference Range Interpretation Comments Creatinine Lvl (test code = Creatinine 0.84 0.50-1.40 Lvl) [place] 128852-07-25 08:03:00 Test Item Value Reference Range Interpretation Comments Sodium Lvl (test code = Sodium Lvl) 133 135-145 [place] 128852-07-25 08:03:00 Test Item Value Reference Range Interpretation Comments Potassium Lvl (test code = Potassium 4.4 3.5-5.1 Lvl) [place] 128852-07-25 08:03:00 Test Item Value Reference Range Interpretation Comments Chloride Lvl (test code = Chloride Lvl) 98 95-109 [place] 128852-07-25 08:03:00 Test Item Value Reference Range Interpretation Comments CO2 (test code = CO2) 25 24-32 [place] 128852-07-25 08:03:00 Test Item Value Reference Range Interpretation Comments AGAP (test code = AGAP) 14.4 10.0-20.0 [place] 128852-07-25 08:03:00 Test Item Value Reference Range Interpretation Comments Calcium Lvl (test code = Calcium Lvl) 9.1 8.5-10.5 [place] 128852-07-25 08:03:00 Test Item Value Reference Range Interpretation Comments B/C Ratio (test code = B/C Ratio) 25 1 6-25 [place] 128852-07-25 08:03:00 Test Item Value Reference Range Interpretation Comments Total Protein (test code = Total 6.7 6.4-8.4 Protein) [place] 128852-07-25 08:03:00 Test Item Value Reference Range Interpretation Comments Albumin Lvl (test code = Albumin Lvl) 3.2 3.5-5.0 [place] 128852-07-25 08:03:00 Test Item Value Reference Range Interpretation Comments Globulin (test code = Globulin) 3.5 2.7-4.2 [facility] CenterBasharJobs [id number] 08:03:00 Test Item Value Reference Range Interpretation Comments A/G Ratio (test code = A/G Ratio) 0.9 1 0.7-1.6 [facility] CenterBasharJobs [id number] 08:03:00 Test Item Value Reference Range Interpretation Comments ALT (test code = ALT) 19 See_Comment [Auto mated message] The system which ge nerated this result transmit lavon reference range : <=65. The reference range was not used to interpr et this result as blayne l/abnormal. [facility] [employer] [id number] 08:03:00 Test Item Value Reference Range Interpretation Comments AST (test code = AST) 26 See_Comment [Auto mated message] The system which ge nerated this result transmit lavon reference range : <=37. The reference range was not used to interpr et this result as blayne l/abnormal. [facility] [employer] [id number] 08:03:00 Test Item Value Reference Range Interpretation Comments Alk Phos (test code = Alk Phos) 56 39-136 [facility] [employer] [id number] 08:03:00 Test Item Value Reference Range Interpretation Comments Bili Total (test code = Bili Total) 1.0 0.2-1.3 [facility] [employer] [id number] 08:03:00 Test Item Value Reference Range Interpretation Comments eGFR (test code = eGFR) 67 [facility] [employer] [id number] 08:03:00 Test Item Value Reference Range Interpretation Comments Magnesium Lvl (test code = Magnesium 1.9 1.8-2.4 Lvl) [facility] CenterBasharJobs [id number] 08:03:00 Test Item Value Reference Range Interpretation Comments Procalcitonin Lvl (test no gt See_Comment [Au tomated message] code = Procalcitonin Lvl) Th e system which generated this result transmitted ref erence range: <=0.10. The reference range was not used to interpr et this result as normal/abnormal . [facility] [employer] [id number] 08:03:00 Test Item Value Reference Range Interpretation Comments LDH (test code = LDH) 354 98-192 [facility]oundUznryblUWZYCIYIRD9917-30-55 08:03:00 Test Item Value Reference Range Interpretation Comments WBC (test code = WBC) 7.5 3.7-10.4 [facility]oundHwxwbwvDSBGJZZROJ6248-48-96 08:03:00 Test Item Value Reference Range Interpretation Comments RBC (test code = RBC) 3.44 4.20-5.40 [facility] MoundHnadpcgBNHWFHETUD9297-47-11 08:03:00 Test Item Value Reference Range Interpretation Comments Hgb (test code = Hgb) 8.3 12.0-16.0 [facility] MoundOraunswDEAFNGZVSL0581-43-64 08:03:00 Test Item Value Reference Range Interpretation Comments Hct (test code = Hct) 26.2 36.0-48.0 [facility] MoundBtvicuvVBBLFFSNYM4157-25-45 08:03:00 Test Item Value Reference Range Interpretation Comments MCV (test code = MCV) 76.1 80.0-98.0 [facility] MoundMewfuesAWODKMVQIB4925-93-38 08:03:00 Test Item Value Reference Range Interpretation Comments MCH (test code = MCH) 24.0 pg 27.0-31.0 [facility] MoundCvuynytAYNDTWYVLU6491-55-06 08:03:00 Test Item Value Reference Range Interpretation Comments MCHC (test code = MCHC) 31.6 32.0-36.0 [facility]oundWswmlkcFCUCCFOUTM1705-60-87 08:03:00 Test Item Value Reference Range Interpretation Comments RDW (test code = RDW) 20.9 11.5-14.5 [facility] MoundFtpuufjRAZICPYYEV1951-73-66 08:03:00 Test Item Value Reference Range Interpretation Comments Platelet (test code = Platelet) 289 133-450 [facility] MoundZcnmyccYABWDVETCU3053-43-38 08:03:00 Test Item Value Reference Range Interpretation Comments MPV (test code = MPV) 7.5 7.4-10.4 [facility] MoundToqkgznIPREXZJVCL4961-37-35 08:03:00 Test Item Value Reference Range Interpretation Comments Segs (test code = Segs) 94.0 45.0-75.0 [facility]oundJytsaqcYEHURZXCGS2408-60-18 08:03:00 Test Item Value Reference Range Interpretation Comments Lymphocytes (test code = Lymphocytes) 4.3 20.0-40.0 [facility]oundMwrsegoRFUFAJOATY8378-32-11 08:03:00 Test Item Value Reference Range Interpretation Comments Monocytes (test code = Monocytes) 1.6 2.0-12.0 [facility]QzqjnbuQNMBKJVHXF8352-35-71 08:03:00 Test Item Value Reference Range Interpretation Comments Basophils (test code = 0.1 See_Comment [Aut omated message] The Basophils) system which ge nerated this result tra nsmitted reference range : <=1.0. The reference r hugo was not used to int erpret this result as normal/abnormal . [facility] HospitalVtgifbqDQPBAGGXDO7176-53-17 08:03:00 Test Item Value Reference Range Interpretation Comments Neutrophils # (test code = Neutrophils 7.0 1.5-8.1 #) [facility]oundJtkytzbTDCVHYRVNN5724-31-79 08:03:00 Test Item Value Reference Range Interpretation Comments Lymphocytes # (test code = Lymphocytes 0.3 1.0-5.5 #) [facility]oundSjyikcjYXCNWQIRRV4280-50-20 08:03:00 Test Item Value Reference Range Interpretation Comments Monocytes # (test code 0.1 See_Comment [Aut omated message] The = Monocytes #) system which generated this result tra nsmitted reference range : <=0.8. The reference r hugo was not used to int erpret this result as normal/abnormal . [facility] HospitalHrtjxtpPBIKBCVSNE7194-97-49 08:03:00 Test Item Value Reference Range Interpretation Comments Microcyte (test code = 1+ *ABN*(06/13/22 Microcyte) 3:03 AM) [facility] 07:27:00 Test Item Value Reference Range Interpretation Comments HS Troponin I Baseline (test code = HS 46 Troponin I Baseline) [facility] 04:26:00 Test Item Value Reference Range Interpretation Comments HS Troponin I (test code = HS Troponin 46 I) [facility] 04:26:00 Test Item Value Reference Range Interpretation Comments BNP (test code = BNP) 851 [facility] CenterRlyhqwgEWEOVMKCLN2284-19-59 04:26:00 Test Item Value Reference Range Interpretation Comments Coronavirus (COVID-19) Not Detected (06/12/22 DEJUAN (test code = 11:26 PM) Coronavirus (COVID-19) DEJUAN) [facility]:20[facility] Test Item Value Reference Range Interpretation Comments HS Troponin I (test code = HS Troponin 52 I) [facility]CHE[facility] [id number] 02:20:00 Test Item Value Reference Range Interpretation Comments Glucose Lvl (test code = Glucose Lvl) 103 70-99 [facility] [id number] 02:20:00 Test Item Value Reference Range Interpretation Comments BUN (test code = BUN) 22 7-22 [facility] [id number] 02:20:00 Test Item Value Reference Range Interpretation Comments Creatinine Lvl (test code = Creatinine 0.90 0.50-1.40 Lvl) [facility] [id number] 02:20:00 Test Item Value Reference Range Interpretation Comments Sodium Lvl (test code = Sodium Lvl) 131 135-145 [facility]2022-07-25 02:20:00 Test Item Value Reference Range Interpretation Comments Potassium Lvl (test code = Potassium 4.2 3.5-5.1 Lvl) [facility] [id number] 02:20:00 Test Item Value Reference Range Interpretation Comments Chloride Lvl (test code = Chloride Lvl) 97 95-109 [facility] [id number] 02:20:00 Test Item Value Reference Range Interpretation Comments CO2 (test code = CO2) 26 24-32 [facility]2022-07-25 02:20:00 Test Item Value Reference Range Interpretation Comments Calcium Lvl (test code = Calcium Lvl) 8.7 8.5-10.5 [facility]2022-07-25 02:20:00 Test Item Value Reference Range Interpretation Comments Total Protein (test code = Total 7.0 6.4-8.4 Protein) [facility] [id number] 02:20:00 Test Item Value Reference Range Interpretation Comments Albumin Lvl (test code = Albumin Lvl) 3.4 3.5-5.0 [facility] [id number] 02:20:00 Test Item Value Reference Range Interpretation Comments ALT (test code = ALT) 18 See_Comment [Auto mated message] The system which ge nerated this result transmit lavon reference range : <=65. The reference range was not used to interpr et this result as blayne l/abnormal. [facility]2022-07-25 02:20:00 Test Item Value Reference Range Interpretation Comments AST (test code = AST) 27 See_Comment [Auto mated message] The system which ge nerated this result transmit lavon reference range : <=37. The reference range was not used to interpr et this result as blayne l/abnormal. [place] 128852-07-25 02:20:00 Test Item Value Reference Range Interpretation Comments Alk Phos (test code = Alk Phos) 57 39-136 [place] 128852-07-25 02:20:00 Test Item Value Reference Range Interpretation Comments Bili Total (test code = Bili Total) 1.0 0.2-1.3 [place] 128852-07-25 02:20:00 Test Item Value Reference Range Interpretation Comments AGAP (test code = AGAP) 12.2 10.0-20.0 [place] 128852-07-25 02:20:00 Test Item Value Reference Range Interpretation Comments B/C Ratio (test code = B/C Ratio) 24 1 6-25 [place] 128852-07-25 02:20:00 Test Item Value Reference Range Interpretation Comments Globulin (test code = Globulin) 3.6 2.7-4.2 [place] 128852-07-25 02:20:00 Test Item Value Reference Range Interpretation Comments A/G Ratio (test code = A/G Ratio) 0.9 1 0.7-1.6 [place] 128852-07-25 02:20:00 Test Item Value Reference Range Interpretation Comments eGFR (test code = eGFR) 62 [place] 222452-07-25 02:20:00 Test Item Value Reference Range Interpretation Comments WBC (test code = WBC) 8.6 3.7-10.4 [place] 222452-07-25 02:20:00 Test Item Value Reference Range Interpretation Comments RBC (test code = RBC) 3.58 4.20-5.40 [place] 222452-07-25 02:20:00 Test Item Value Reference Range Interpretation Comments Hgb (test code = Hgb) 8.8 12.0-16.0 [place] 222452-07-25 02:20:00 Test Item Value Reference Range Interpretation Comments Hct (test code = Hct) 27.1 36.0-48.0 [facility]P[id number] 02:20:00 Test Item Value Reference Range Interpretation Comments MCV (test code = MCV) 75.6 80.0-98.0 [facility]oundVzswinqQUNQOFAGFM7543-56-31 02:20:00 Test Item Value Reference Range Interpretation Comments MCH (test code = MCH) 24.5 pg 27.0-31.0 [facility]oundJupitywFWWSWECZWI4818-32-96 02:20:00 Test Item Value Reference Range Interpretation Comments MCHC (test code = MCHC) 32.4 32.0-36.0 [facility]oundEgjvhzfQVSLOHAPCN2025-04-12 02:20:00 Test Item Value Reference Range Interpretation Comments RDW (test code = RDW) 21.1 11.5-14.5 [facility]oundSrmmoqvHPNLTKLMKA6543-47-98 02:20:00 Test Item Value Reference Range Interpretation Comments Platelet (test code = Platelet) 297 133-450 [facility]oundOmhvhfwZXZFKVOAWL1594-88-72 02:20:00 Test Item Value Reference Range Interpretation Comments MPV (test code = MPV) 7.5 7.4-10.4 [facility]oundJioiqfiGMXQCGANCX7903-54-67 02:20:00 Test Item Value Reference Range Interpretation Comments Segs (test code = Segs) 85.8 45.0-75.0 [facility]oundRuzlxslJAMIISGMXW1987-53-17 02:20:00 Test Item Value Reference Range Interpretation Comments Lymphocytes (test code = Lymphocytes) 8.5 20.0-40.0 [facility]oundAgdcriuYGQNODXFSZ1160-58-28 02:20:00 Test Item Value Reference Range Interpretation Comments Monocytes (test code = Monocytes) 5.0 2.0-12.0 [place] 222452-07-25 02:20:00 Test Item Value Reference Range Interpretation Comments Eosinophils (test code = 0.3 See_Comment [A utomated message] The Eosinophils) system which ge nerated this result tra nsmitted reference range : <=4.0. The reference r hugo was not used to int erpret this result as normal/abnormal . [facility]oundPhcibqeFNPJNLHMLA7804-62-60 02:20:00 Test Item Value Reference Range Interpretation Comments Basophils (test code = 0.4 See_Comment [Aut omated message] The Basophils) system which ge nerated this result tra nsmitted reference range : <=1.0. The reference r hugo was not used to int erpret this result as normal/abnormal . [facility] MoundFccucymTCMFAPEJSC5348-42-54 02:20:00 Test Item Value Reference Range Interpretation Comments Neutrophils # (test code = Neutrophils 7.4 1.5-8.1 #) [facility]oundWgaftcsESBMZVVXDW9672-67-43 02:20:00 Test Item Value Reference Range Interpretation Comments Lymphocytes # (test code = Lymphocytes 0.7 1.0-5.5 #) [facility]oundUukmcrpXUUKTDSCCH7007-09-21 02:20:00 Test Item Value Reference Range Interpretation Comments Monocytes # (test code 0.4 See_Comment [Aut omated message] The = Monocytes #) system which generated this result tra nsmitted reference range : <=0.8. The reference r hugo was not used to int erpret this result as normal/abnormal . [facility] MoundEatfmzvIZNPGINTQV5936-04-60 02:20:00 Test Item Value Reference Range Interpretation Comments Microcyte (test code = 1+ *ABN*(06/12/22 Microcyte) 9:20 PM) [facility]89 11:14:00 Test Item Value Reference Range Interpretation Comments SURGICAL (test code = SR) R UN DATE: 06/01/22 [facility] PAGE 1 RUN TIME: 1114 Specimen Inquiry RUN USER: INTERFACE P ATIENT: KELLY SLOAN [facility] #: [id number] LOC: LEAH #: [id number] AGE/SX: 87/F ROOM: [facility] RE05/20/22REG DR: Frank Putnam MD : 35 BED: 1 DIS: 05/26/22 STATUS: DIS IN TLOC: SPEC #: [id number] RECD: 05/28/22 STATUS: MALOU REQ #: [id number] TINY: 05/25/22- SUBM DR: Frank Putnam MD ENTERED: 05/28/22-1416 SP TYPE: SURGICAL OTHR DR: Lizeth Morales MD, Nehme X MD Chaugle, Abdul Hannan MD Lee, Gabriel MD Mahmood, Khalid MD Tharani, Shamshad NPORDERED: 57053, 37528, IHC ADD 90772/7, 91738-49, ANATOMIC SPEC COPIES TO: Lizeth Morales MD [address] [place] [address] John Alberto MD [address] [place] [id number] Marcellus De La Garza MD [address] [facility] [place] [id number] Camron Fonseca MD [address] [facility] [address] [place] [id number] Kyler Longoria MD [address] [place] [id number] Frank Putnam MD [address] [facility] [address] [place] [address] AdamOfelia espinal [address] [address] CONTINUED ON NEXT PAGE R UN DATE: 06/01/22 [facility] PAGE 2 RUN TIME: 1114 Specimen Inquiry RUN USER: INTERFACE S PEC #: [id number] PATIENT: KELLY SLOAN Patricia #[id number] (Continued) PROCEDURES: 71464 (05/28/22-1417) 28863 (06/01/22) IHC ADD 88698 (06/01/22) 41565-93 (06/01/22) TISSUES: A. PERITONEUM BIOPSY - NODULE, CORE CLINICAL HISTORY SAME FINAL DIAGNOSIS Peritoneal nodule, biopsy:Metastatic carcinoma, favor ovarian origin. Comment: The peritoneal nodule biopsy shows a metastatic carcinoma that expresses Mullerianmarkers. Based on the overall immunohistochemical profile, ovarian origin is favored. GROSS DESCRIPTION The specimen received in formalin in a container labeled with the patient's name anddesignated peritoneal nodule consists of multiple scant fragments of tissue which inaggregate measure 0.5 cm in greatest dimension. The specimen is entirely submitted in 1cassette. Technical component performed at [facility],[address] [place] [address], [place] [address] Unless gross only, the diagnosis is based upon microscopic examination.Immunohistochemistr y: This test was developed and its performance characteristicsdetermined by this laboratory. It has not been approved nor does it need approvalby the [place] FDA. Appropriate positive and negative controls are reviewed and judgedto be acceptable. This laboratory is certified under the Clinical Laboratory ImprovementAmendments (CLIA-88) as qualified to perform high complexity clinical laboratory testing. MICROSCOPIC DESCRIPTION Sections of the peritoneal nodule mass show nests of tumor cells with moderate to severelyatypical nuclei. Mitotic figures are easily seen. Vaguely some glandular structures arepresent. High-power examination of the tumor cells show pinpoint nucleoli. To evaluate the tumor cells, immunohistochemical stains are performed. The tumor cells arepositive for pancytokeratin, CK7, PAX8, estrogen receptor, and variably positive for WT1. The tumor cells are negative for CK20 and calretinin. Inhibin immunohistochemical stainperformed at [employer] and interpreted at [facility] is negative in the tumor cells. CONTINUED ON NEXT PAGE R UN DATE: 06/01/22 [facility] - LAB PAGE 3 RUN TIME: 1114 Specimen Inquiry RUN USER: INTERFACE S PEC #: [id number] PATIENT: KELLY SLOAN #[id number] (Continued) CLINICAL INFORMATION PERITONAL NODULE ----- Signed _ Dav Marie 06/01/22 1114 END OF REPORT [id number] 10:45:00 Test Item Value Reference Range Interpretation Comments MAGNESIUM (test code = MAG) 1.65 mg/dL 1.80-2.40 L CBC W/AUTO [id number] 08:08:00 Test Item Value Reference Range Interpretation [...] (test code NO = MDIFF) BASIC METABOLIC [id number] 07:29:00 Test Item Value Reference Range Interpretation [...] = 8.9 mg/dL 8.0-10.5 N CA) PROTHROMBIN [id number] 06:41:00 Test Item Value Reference Range Interpretation Comments PROTHROMBIN TIME 13.1 SECONDS 9.3-12.9 H PATIENT (test code = PTP) INTERNATIONAL NORMAL 1.2 0.8-1.2 N TARGET INR BY RATIO (test code = INDICATIO N Indication INR) INR1. Prophylax is of venous thrombos is 2.0 - 3.0 (orthoped ic surgery), Proph ylaxis of venous throm bosis (other than hig h-risk surgery), Treat ment of Deep Vein Thrombosis/Pulm onary Embolism, Preve ntion of systemic emb olism - Tissue heart va lves, Acute Myocardia l Infarction (to prevent systemic emboli sm), Valvular heart disease, Atrial Fibrillation, Bileaflet mecha nical valve in aortic position.2. Mec hanical prosthetic valv es (high risk), 2. 5 - 3.5 Presence of Lup us Anticoagulant o r Antiphospholipi d Antibodies, Pre vention of systemic emb olism - Acute Myocardia l Infarction (to prevent recurrent infar ct). COVID 19 Asymptomatic IH [id number] 04:50:00 Test Item Value Reference Range Interpretation Comments COVID 19 Asymptomatic Negative Negative A nega tive result is IH AG (test code = presumpti ve and should COVNONPUIAG) be confirmedwit h an FDA authorized mole cular assay, if kamleshes cyrus forpatient nito victor hugo.A positive result does not rule out co-inf [...] tests. COMMENTS: PRE ENDO- CT GUID NDL PLCDE (Biopsy/Asp)2022-05-25 00:00:00 [facility] 1935 Sex: F Name: KELLY SLOAN [facility] : 1935 Age/S: 87 / F [address] [place] [address] Blvd Unit #: [id number] Loc: [place] [address] Phys: Jamshid Chang MD Acct: [id number] Dis Date: Status: ADM IN PHONE #: [phone] Exam Date: 05/25/2022 1313 FAX #: [phone] Reason: peritoneal mets- etiology? EXAMS: CPT CODE: [id number] CT GUID NDL PLCDE (Biopsy/Asp) 84550 PROCEDURE INFORMATION: Exam: IR Biopsy, abdominal or retroperitoneal mass, percutaneous needle Exam date and time: 05/25/2022 11:37 AM Age: 87 years old Clinical indication: Other: Peritoneal mets- etiology? TECHNIQUE: Imaging protocol: Biopsy, abdominal or retroperitoneal mass, percutaneous needle. CT guidance was provided. Radiation optimization: All CT scans at this facility use at least one of these dose optimization techniques: automated exposure control; mA and/or kV adjustment per patient size (includes targeted exams where dose is matched to clinical indication); or iterative reconstruction. Guidance contrast: CT contrast route: Intra-venous; COMPARISON: CT ABD PELVIS W/O CONT 05/20/2022 9:07 AM Total DLP (mGy-cm): 638.0PROCEDURE: 1. CT-guided biopsy of a peritoneal mass [...] core biopsies were obtained of this mass usinga coaxial technique. The needles were removed at the end of the procedure and sterile dressings applied. Postprocedure imaging demonstrated no immediate complication. The patient was stable throughout the procedure. IMPRESSION: Successful CT-guided biopsy of peritoneal mass. PAGE 1 Signed Report (CONTINUED) Name: KELLY SLOAN [facility] : 1935 Age/S: 87 / F [address] [place] [address] Unit #: [id number] Loc: [place] [address] Phys: Jamshid Chang MD Acct: [id number] Dis Date: Status: ADM IN PHONE #: [phone] Exam Date: 05/25/2022 1313 FAX #: [phone] Reason: peritoneal mets- etiology? EXAMS: CPT CODE: [id number] CT GUID NDL PLCMT (Biopsy/Asp) 30539 (Continued) at 1501 Reported and signed by: Aure Hanson D.O. CC: Jamshid Chang MD; Frank Putnam MD Technologist:Jose Kaiser, RT(R)(CT) CTDI: DLP:Trnscb Date/Time: 05/25/2022 (1501) t.SDR.MP37 Orig Print D/T: S: 05/25/2022 (1501) PAGE 2 Signed ReportPROTEIN ELECTROPHORESIS [id number] 17:08:00 Test Item Value Reference Range Interpretation Comments TOTAL PROTEIN 5.7 g/dL 6.0-8.5 L (test code = PROTE) ALBUMIN (test 3.1 g/dL 2.9-4.4 code = ALBE) OLYRH-9-KMPSDJGR 0.3 g/dL 0.0-0.4 (test code = A1G) FEOAH-5-BXTBLMEX 0.6 g/dL 0.4-1.0 (test code = A2G) [...] is not apparent.Perfor med At: HD [facility] [address] [place], [place] [id number] Kyle L MD Ph:[phone] rform ed At: [facility] [address] Mik[place] [id number] h CN MD Ph:[phone] [Automated mess age] The system [employer] generated this result transmit lavon reference range : (). The reference r hugo was not used to interpret this result as normal/abnormal . LACTIC DEHYDROGENASE(LDH)2022-05-24 17:08:00 Test Item Value Reference Range Interpretation Comments LACTIC DEHYDROGENASE(LDH) (test 233 IUnits/L 84-246 N code = LDH) TOTAL IRON BINDING [id number] 17:08:00 Test Item Value Reference Range Interpretation Comments SERUM IRON (test code = IRON) 88 mcg/dL 35-150 N TOTAL IRON BINDING CAPACITY (test 382 mcg/dL 260-445 N code = TIBC) UIBC (test code = UIBC) 294 mcg/dL IRON SATURATION (test code = 23.0 % 14-34 N FESAT) VITAMIN [id number] 17:08:00 Test Item Value Reference Range Interpretation Comments VITAMIN B12 (test code = VITB12) 262 pg/mL 193-986 N FOLIC [id number] 17:08:00 Test Item Value Reference Range Interpretation Comments FOLIC ACID (test code = FOL) 11.3 ng/mL 3.1-17.5 N AG [id number] 17:08:00 Test Item Value Reference Range Interpretation Comments AG CARCINOEMBRYONIC (test code = 0.1 NG/ML 0.0-5.0 N CEA) [place] [id number] 17:08:00 Test Item Value Reference Range Interpretation Comments CA 125 (test 115.0 U/mL 0.0-38.1 A [employer] cs code = Electrochemilum inescence CA125) Immunoassay(ECL IA)Values obtained with d ifferent assay methods or kits cannotbe used interchangeably . Results cannot be interpreted asabsolute evidence of the presence or absence of fei gnantdisease. CA27-29, [id number] 17:08:00 Test Item Value Reference Range Interpretation Comments CA27-29, 22.1 U/mL 0.0-38.6 [employer]ens [employer] BIOMIRA (test Immunochemilum inometric code = DX0697) Methodology ( ICMA)Values obtained with d ifferent assay methods or kits cannotbe used interchangeably . Results cannot be inter preted asabsolute evid ence of the presence or abs ence of malignantdiseas e.Performed At: [facility] [address] [place], [place] [id number] Kyle L MD Ph:[phone] BASIC METABOLIC [id number] 04:47:00 Test Item Value Reference Range Interpretation [...] code = 7.8 mg/dL 8.0-10.5 L CA) [id number] 04:47:00 Test Item Value Reference Range Interpretation Comments MAGNESIUM (test code = MAG) 1.80 mg/dL 1.80-2.40 N CBC W/AUTO [id number] 04:37:00 Test Item Value Reference Range Interpretation [...] DIFF REQUIRED (test code NO = MDIFF) [id number] 17:11:00 Test Item Value Reference Range Interpretation Comments HAPTOGLOBIN (test code 137 mg/dL 41-333 Perfo rmed At: DA = HAPT) [facility] [address] [place], [place] [id number] h CN Ph:[phone] BASIC METABOLIC [id number] 04:10:00 Test Item Value Reference Range Interpretation [...] code = 8.1 mg/dL 8.0-10.5 N CA) [id number] 04:10:00 Test Item Value Reference Range Interpretation Comments MAGNESIUM (test code = MAG) 1.92 mg/dL 1.80-2.40 N CBC W/AUTO [id number] 03:56:00 Test Item Value Reference Range Interpretation [...] = CHOL/HDL RATIOS: RISK CHOLHDL) MALE FEMALE1/2 AVERAGE 3.43 3.27AVERAG E 4.97 4.442X AVERAGE 9.55 7.053X AVERAGE 23.39 11.04 NOTE THAT THE REFERENCE VALUE IS RELATEDTO RISK LEVELS RECOMMENDED BY THE NATL.HEART, JENSEN G, AND BLOOD INST. HDL CHOLESTEROL 61.4 mg/dL 39-96 N (test code = HDL) LIPOPROTEIN LDL 58.1 mg/dL 0-100 N <100 OPTIMAL 100-129 (test code = LDL) NEAR OPTIM AL/ABOVE [id number] BVAWJPIMFU306-2 89 HIGH>DL=689 BRUNILDA Y HIGH*Guidelines provided by the National Choles terol EducationProgra Adult Treatment Panel III SERUM [id number] 05:12:00 Test Item Value Reference Range Interpretation Comments SERUM IRON (test code = IRON) 90 mcg/dL 35-150 N THYROID STIMULATING [id number] 05:12:00 Test Item Value Reference Range Interpretation Comments THYROID STIMULATING 2.69 0.42-5.47 N Results in HORMONE (test code = TSH) mi lli-International Units/mL [id number] 05:12:00 Test Item Value Reference Range Interpretation Comments FERRITIN (test code = BRIDGET) 35.6 ng/mL 11.0-306.8 N RETIC COUNT (AUTOMATED)2022-05-20 05:08:00 Test Item Value Reference Range Interpretation Comments RETIC COUNT (AUTOMATED) (test code = 2.3 % 0.3-2.3 N RETICA) BASIC METABOLIC [id number] 05:00:00 Test Item Value Reference Range Interpretation [...] code = 8.0 mg/dL 8.0-10.5 N CA) [id number] 05:00:00 Test Item Value Reference Range Interpretation Comments MAGNESIUM (test code = MAG) 2.06 mg/dL 1.80-2.40 CBC W/AUTO [id number] 04:59:00 Test Item Value Reference Range Interpretation [...] = MDIFF) - CT ABD PELVIS W/O [id number] 00:00:00 [facility] 1935 Sex: F Name: KELLY SLOAN [facility] : 1935 Age/S: 87 / F [address] [place] [address] Unit #: [id number] Loc: [place] [address] Phys: Kyler Longoria MD Acct: [id number] Dis Date: Status: ADM IN PHONE #: [phone] Exam Date: 05/20/2022921 FAX #: [phone] Reason: Peritoneal nodularity, breast cancer EXAMS: CPT CODE: [id number] CT ABD PELVIS W/O CONT 05519 PROCEDURE INFORMATION: Exam: CT Abdomen And Pelvis Without Contrast Exam date and time: 05/20/2022 9:07 AM Age: 87 years old Clinical indication: Other: Peritoneal nodularity, breast cancer TECHNIQUE: Imaging protocol: Computed tomography of the abdomen and pelvis without contrast. Radiation optimization: All CT scans at [facility] use at least one of these dose optimization techniques: automated exposure control; mA and/or kV adjustment per patient size (includes targeted exams where dose is matched to clinical indication); or iterative reconstruction. COMPARISON: CT CHEST W/O CONTRAST 05/19/2022 10:29 AM FINDINGS: Limitations: Assessment of the viscera and vasculature may be limited by the lack of intravenous contrast. Lungs: Interstitial opacities and indistinct ground-glass opacities predominantly in dependent portions of the lungs similar in appearance. Pleural spaces: Bilateral layering pleural effusions, right greater than left redemonstrated. Heart: Cardiomegaly and coronary arterial calcifications partiallyimaged. Mediastinal space: There is moderate-sized hiatal hernia with paraesophageal component. Liver: Unremarkable within limitations Gallbladder and bile ducts: Hyperattenuation of gallbladder contents compatible with vicarious excretion of contrast or sludge. No pericholecystic edema. No biliary dilatation. Pancreas: There is diffuse, benign fatty infiltration of the pancreas. Spleen: Unremarkable. Adrenal glands: Unremarkable. Kidneys and ureters: The renal contours are normal. Residual excretedcontrast in nondilated renal collecting systems. Noncommunicating water attenuation structures compatible with parapelvic cysts. Stomach and bowel: The contracted stomach is otherwise unremarkable. Thesmall bowel is unremarkable. There is scattered fecal material throughout the colon. Left-sided colonic diverticulosis. Appendix: The appendix is not visualized. Cecal tip inseparable from soft tissuein the right adnexal region. PAGE 1 Signed Report (CONTINUED) Name: KELLY SLOAN [facility] : 1935 Age/S: 87 / F [address] [place] [address] Unit #: [id number] Loc: [place] [address] Phys: Kyler Longoria MD Acct: [id number] Dis Date: Status: ADM IN PHONE #: [phone] Exam Date: 05/20/2022921 FAX #: [phone] Reason: Peritoneal nodularity, breast cancer EXAMS: CPT CODE: [id number] CT ABD PELVIS W/O CONT 21540 (Continued) Intraperitoneal space: There is a small volume [...] Soft tissues: There is generalized subcutaneous edema. Nofocal fluid collection. IMPRESSION: 1. Findings of peritoneal carcinomatosis. 2. Anterior diaphragmatic and mesenteric lymphadenopathy. 3. Limited assessment of the uterus and adnexa by this technique with amorphous tissue containing multiple calcifications. Relative contributions of uterine/adnexalmasses and metastatic disease are undetermined. 4. The appendix is not visualized with cecal tip inseparable from described pelvic changes. 5. Severe atherosclerosis. 6. Bilateral, right greater than left pleural effusions and pulmonary opacities redemonstrated. The reader is referred to recent CT chest report for further details. at 1527 Reported and signed by: Memo Saleem M.D. PAGE 2 Signed Report (CONTINUED) Name: KELLY SLOAN [facility] : 1935 Age/S: 87 / F [address] [place] [address] Blvd Unit #: [id number] Loc: [place] [address] Phys: Kyler Longoria MD Acct: [id number] Dis Date: Status: ADM IN PHONE#: [phone] Exam Date: 05/20/2022 09 FAX #: [phone] Reason: Peritoneal nodularity, breastcancer EXAMS: CPT CODE: [id number] CT ABD PELVIS W/O CONT 41181 (Continued) CC: Kyler Longoria; Frank Putnam MD Technologist:Rosalind Sheehan. RT(R)(CT) CTDI: DLP: Trnscb Date/Time: 05/20/2022 (1527) Venita Orig Print D/T: S: 05/20/2022 (303) PAGE 3 Signed ReportURINALYSIS [id number] 07:24:00 Test Item Value Reference Range Interpretation [...] 0-5 /HPF NONE SEEN SQU) CBC W/AUTO [id number] 04:25:00 Test Item Value Reference Range Interpretation [...] REQUIRED (test code NO = MDIFF) RBC [id number] 04:25:00 Test Item Value Reference Range Interpretation Comments ANISOCYTOSIS (test code = ANISO) 1+ POLYCHROMASIA (test code = POLC) 1+ HYPOCHROMIA (test code = HYPO) 1+ MICROCYTOSIS (test code = MICR) 1+ BASIC METABOLIC [id number] 04:14:00 Test Item Value Reference Range Interpretation [...] code = 7.7 mg/dL 8.0-10.5 L CA) [id number] 04:14:00 Test Item Value Reference Range Interpretation Comments MAGNESIUM (test code = MAG) 1.77 mg/dL 1.80-2.40 L - DUP VEIN [id number] 00:00:00 [facility] 1935 Sex: F Name: KELLY SLOAN [facility] : 1935 Age/S: 87 / F [address] [place] [address] Unit #: [id number] Loc: [place] [address] Phys: Analia Espinal PUMP AND BLOWER OPERATOR Acct: [id number] Dis Date:Status: ADM IN PHONE #: [phone] Exam Date: 05/19/202248 FAX #: [phone] Reason: PRE CABGEVAL EXAMS: CPT CODE: [id number] DUP VEIN JOSE ENRIQUE 78831 PROCEDURE INFORMATION: Exam: US Duplex Lower Extremity Veins; Vein mapping Exam date and time: 05/19/2022 5:19 AM Age: 87 years old Clinical indication: Screening exam; Pre cabg eval; End-stage renal disease, operative planning for hemodialysis accesscreation TECHNIQUE: Imaging protocol: Real-time duplex ultrasound of the Lower Extremities with 2-D gomez scale, color Doppler flow and spectral waveform analysis with image documentation. Complete examfocused on the bilateral lower extremity veins for vein mapping. Other technique: Grayscale, color Doppler, and spectral Doppler evaluation of the bilateral lower extremity veins and arteries performedwithout a tourniquet for purposes of vascular mapping for hemodialysis access creation. COMPARISON: No relevant prior studies available. FINDINGS: Venous evaluation RIGHT GENERAL: Imaged right lower extremity veins demonstrate normal compressibility and color filling. RIGHT LEG: Thigh proximal: 4.1 mm Thigh mid: 3.5 mm Thigh distal: 1.9 mm Below knee vessels are not well visualized LEFT: GENERAL: Imaged left lower extremity veins demonstrate normal compressibility and color filling. LEFT LEG: Thighproximal: 3.2 mm Thigh mid: 2.3 mm Thigh distal: 1.6 mm Leg proximal: 1.4 mm Leg mid: 1.1 mm Leg distal: 0.7 mm IMPRESSION: Bilateral lower extremity vascular mapping as noted above. at 0618 Reported and signed by: Epifanio Morel M.D PAGE 1 Signed Report (CONTINUED) Name: KELLY SLOAN [facility] : 1935 Age/S: 87 / F [address] [place] [address] Blvd Unit #: [id number] Loc: [place] [address] Phys: Analia Espinal PUMP AND BLOWER OPERATOR Acct:[id number] Dis Date: Status: ADM IN PHONE #: [phone] Exam Date: 05/19/2022 0548 FAX #: [phone] Reason: PRE CABG EVAL EXAMS: CPT CODE: [id number] DUP VEIN JOSE ENRIQUE 28251 (Continued) CC: Analia Peñaloza PUMP AND BLOWER OPERATOR; Frank Putnam MD Technologist: Nannette Maldonado RDMS(AB)(OB) Trnscb Date/Time: 05/19/2022 (617) [email or web address] Orig Print D/T: S: 05/19/2022 (618) Probe: PAGE 2 Signed Report- DUP EXTRACRANIAL [id number] 00:00:00 [facility] : 1935 Sex: F Name: KELLY SLOAN [facility] : 1935 Age/S: 87 / F [address] [place] [address] Blvd Unit #: [id number] Loc: [place] [address] Phys: Analia Espinal NP Acct: [id number] Dis Date: Status: ADM IN PHONE #: [phone] Exam Date: 05/19/2022 0548 FAX #: [phone] Reason: PRE CABG EVAL EXAMS: CPT CODE: [id number] DUP EXTRACRANIAL JOSE ENRIQUE 68364 PROCEDURE INFORMATION: Exam: US DuplexBilateral Extracranial Arteries, Carotid Arteries Exam date and time: 05/19/2022 5:02 AM Age: 87 years old Clinical indication: Screening exam; Patient HX: Pre cabg eval TECHNIQUE: Imaging protocol: Real-time Duplex ultrasound scan of the bilateral carotid and vertebral arteries combining gomez scale, color Doppler and spectral waveform analysis. Bilateral exam. Exam focused on the carotid arteries. COMPARISON: No relevant prior studies available. FINDINGS: Right common carotid artery: There is calcified plaque [...] artery stenosis is based on criteria defined by the Society of Radiologists in Ultrasound (SRU). Normal is no stenosis. Mild is less than 50% stenosis. Moderate is 50-69% stenosis. Severe is greater than 69% stenosis to near occlusion. Near occlusion is a markedly narrowed lumen. Total occlusion is no detectable patent lumen. at 0639 Reported and signed by: Epifanio Morel M.D PAGE 1 Signed Report (CONTINUED) Name: KELLY SLOAN [facility] : 1935 Age/S: 87 / F [address] [place] [address] Unit #: [id number] Loc: [place] [address] Phys: Analia Sanders NP Acct: [id number] Dis Date: Status: ADM IN PHONE #: [phone] Exam Date: 05/19/2022 0548 FAX #: [phone] Reason: PRE CABG EVAL EXAMS: CPT CODE: [id number] DUP EXTRACRANIAL JOSE ENRIQUE 60192 (Continued) CC: Analia Sanders PUMP AND BLOWER OPERATOR; Frank Putnam MD Technologist: Nannette Maldonado RDMS(AB)(OB) Trnscb Date/Time: 05/19/2022 (0639) [email or web address] Orig Print D/T: S: 05/19/2022 (39) Probe: PAGE 2 Signed Report- CT CHEST W/O [id number] 00:00:00[facility] BHARGAV MEDELLINName: KELLY SLOAN : 1935 Sex: F Name: KELLY SLOAN [facility] Bhargav Medellin : 1935 Age/S: 87 / F [address] [place] [address] Blvd Unit #: [id number] Loc: [place] [address] Phys: Analia Espinal PUMP AND BLOWER OPERATOR Acct: [id number] Dis Date: Status: ADM IN PHONE #: [phone] Exam Date: 05/19/2022 1047 FAX #: [phone] Reason: PRE CABG E SPRING EXAMS: CPT CODE: [id number] CT CHEST W/O CONTRAST 12311 PROCEDURE INFORMATION: Exam: CT Chest Without Contrast; Diagnostic Exam date and time: 05/19/2022 10:29 AM Age: 87 years old Clinical indication: Condition or disease; Other: Pre cabg eval TECHNIQUE: Imaging protocol: Diagnostic computed tomog bernie of the chest without contrast. Radiation optimization: All CT scans at this facility use at least one of these dose optimization techniques: automated exposure control; mA and/or kV adjustment per patient size (includes targeted exams where dose is matched to clinical indication); or iterative re construction. COMPARISON: US DUP EXTRACRANIAL JOSE ENRIQUE 05/19/2022 5:02 AM FINDINGS: Limitations: Respiratory motion. Assessment of the viscera and vasculature may be limited by the lack of intravenous contrast. Lungs: There is partial compressive atelectasis of the lower lobes and posterior right upper lobe. Interstitial septal thickening and faint ground-glass opacities predominantly in dependent lung zones. There is no consolidation. The central airways are patent. Pleural spaces: There are bilateral pleural effusions layering to approximately 4 cm depth on the right, 1.5 cm on the left, water attenuation. There is no pneumothorax. Heart: Calcification of the mitral annulus. Calcifications in the aortic valve plane.There is severe atherosclerotic calcification of the coronary arteries. There is tracepericardial fluid. There is a lobulated soft tissue attenuation mass partially surrounded by epicardial fat adjacent to the left anterior descending artery, estimated 3.1 x 1.8 x 1.6 cm. Mediastinal space: Esophagus is otherwise unremarkable. Lymph nodes: Enlarged left anterior diaphragmatic node series 2, image 71, 11 x 10 mm. Other subcentimeter mediastinal nodes are not enlarged by size criteria.Vasculature: The aorta demonstrates moderate atherosclerotic calcification. The aorta demonstrates se celestino atherosclerotic calcification. Calcified plaque in the aortic root ascending aorta, aortic archand descending aorta. Mild aortic ectasia. 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 Approximate aortic diameters: Ascending aorta at the level of RPA, 3.8 cm. Descending aorta at the same level 2.3 cm. Distal aortic arch 2.4 cm. Mid descending aorta 2.9 cm. Distal descending aorta 2.7 cm. The main pulmonary artery measures 2.9 cm. Vasculature: Unremarkable. No aortic aneurysm. Diaphragm:A moderate hiatal hernia is present. PAGE 1 Signed Report (CONTINUED) Name: KELLY SLOAN [facility] : 1935 Age/S: 87 / F [address] [place], [place] [address] Unit #: [id number] Loc: [place] [address] Phys: Analia Sanders PUMP AND BLOWER OPERATOR Acct: [id number] Dis Date: Status: ADM IN PHONE #: [phone] Exam Date: 05/19/2022 1047 FAX #: [phone] Reason: PRE CABG EVAL EXAMS: CPT CODE: [id number] CT CHEST W/O CONTRAST 17025 (Continued) Liver: The liver is hyperattenuating, greater than 80 Hounsfield units. Otherwise normal [...] collection. Notes: Findings were discussed with Analia Sanders at 05/19/2022 1:28 PM CDT. IMPRESSION: 1. Cardiomegaly. Severe coronary arterial calcifications. Aortic valve calcifications. 2. Small pericardial effusion. Mass lesion in the epicardial fat adjacent to the left anterior descending artery. Given peritoneal disease, metastasis is not excluded. 3. Severe atherosclerosis of the thoracic aorta. 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 Small, right greater than left pleural effusions with associated compressive atelectasis. 5. Mild interstitial septal thickening predominantly in dependent portions of the lungs favoring interstitial edema. 6. Moderate-sized hiatal hernia. 7. Peritoneal nodularity suspicious for malignant peritoneal disease. 8. Hyperattenuation of liver parenchyma. Increased iron deposition, amiodarone toxicity and other metabolic disorders in the differential. at 1329 Reported and signed by: Memo Saleem M.D. PAGE 2 Signed Report (CONTINUED) Name: KELLY SLOAN [facility] : 1935 Age/S: 87 / F [address] [place], [place] [address] Unit #: [id number] Loc: [place] [address] Phys: Analia Espinal PUMP AND BLOWER OPERATOR Acct: [id number] Dis Date: Status: ADM IN PHONE #: [phone] Exam Date: 05/19/2022 1047 FAX #: [phone] Reason: PRE CABG EVAL EXAMS: CPT CODE: [id number] CT CHEST W/O CONTRAST 78269 (Continued) CC: Analia Sanders PUMP AND BLOWER OPERATOR; Frank Putnam MD Technologist:RT Tiffany(R)(CT) CTDI: DLP: Trnscb Date/Time: 05/19/2022 (1328) Venita Orig Print D/T: S: 05/19/2022 (132) PAGE 3 Signed ReportGLUCOSE [id number] 21:58:00 Test Item Value Reference Range Interpretation Comments GLUCOSE BEDSIDE (test 134 MG/DL 70-110 H Perfor med by certified code = GLUBED) 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
[2022-07-16 10:06] LABS: Arterial Blood Carboxyhemoglob 1.8 % (0-1.5); Blood Gas Oxyhemoglobin 96.5 % (94-97); Blood O2 Saturation 99.3 % (92-98.5)
[2022-07-16] MEDS ORDERED: FUROSEMIDE 40 MG/4 ML VIAL ONE (10:29)
[2022-07-16 10:31] LABS: Absolute Lymphocytes (CBC) 1.6 K/uL (0.7-4.9); Hematocrit 20.4 % (36.0-45.0); Lymphocytes % 15.7 % (15.3-44.8); MCV 71.8 fL (80-100); MPV 7.1 fL (7.6-11.3); RBC Red Blood Cell Count 2.83 M/uL (3.86-4.86)
[2022-07-16 10:35] LABS: Protime INR 1.13
[2022-07-16 10:44] LABS: Albumin 3.4 g/dL (3.4-5.0); Bilirubin Direct 0.4 mg/dL (0-0.2); Bilirubin Total 1.2 mg/dL (0.2-1.0); Magnesium 2.3 mg/dL (1.8-2.4); Potassium 3.8 mmol/L (3.5-5.1); Protein, Total 6.6 g/dL (6.4-8.2)
[2022-07-16 10:51] LABS: Troponin High Sensitivity 4397.1 pg/mL (<58.9)
--- NOTE | 2022-07-16 11:02 | RAD REPORT ---
EXAM DESCRIPTION: RAD - Chest Single View - 07/16/2022 10:47 am CLINICAL HISTORY: DYSPNEA COMPARISON: Chest Single View dated 06/02/2022; Chest Single View dated 05/30/2022; Chest Single View dated 05/10/2022; Chest Single View dated 02/17/2022 FINDINGS: Lines: None. Lungs: Diffuse prominence of the pulmonary interstitium as well as hazy opacities bilaterally. Pleural: Bilateral pleural effusions which are small. Cardiac: Similar size and configuration Bones: No acute fractures. Other: IMPRESSION: Interstitial edema with bilateral effusions.
[2022-07-16 11:55] LABS: Platelet Estimate INCR; White Blood Cell Scan OK (OK)
[2022-07-16 11:56] LABS: Anisocytosis 1+; Blood Morphology Comment NOTED (NOT SEEN); Hypochromasia 2+; Ovalocytes 1+; Poikilocytosis 1+; Target Cells 1+
--- NOTE | 2022-07-16 12:14 | EDPHYS ---
Physician Documentation [facility] Name: Kelly Phillips Age: 87 yrs Sex: Female : 1935 Arrival Date: 07/16/2022 Time: 09:50 Bed 2 Private MD: ED Physician Julio Rouse HPI: 07/16 11:52 This 87 yrs old Female presents to ER via EMS with complaints of sob. rn 11:52 The patient has shortness of breath at rest. Onset: The symptoms/episode began/occurred rn this morning. Duration: The symptoms are continuous. The patient's shortness of breath is aggravated by nothing, is alleviated by application of supplemental oxygen. Associated signs and symptoms: Pertinent positives: chest pain, non-productive cough, Pertinent negatives: fever, hemoptysis. Severity of symptoms: At their worst the symptoms were moderate in the emergency department the symptoms are unchanged. The patient has experienced similar episodes in the past. The patient has been recently seen by a physician: The patient has been recently been admitted at [facility]. Pt reports recent admission for sob, had "fluid removed from lungs". Reports worsening sob that began this AM, + chest pain, EMS reports O2 80%. No fever. . Historical: - Allergies: 10:24 PENICILLINS; ll1 - PMHx: 10:24 GERD; Hypertensive disorder; pulmonary edema; ll1 - PSHx: 10:24 Appendectomy; tumor removal RT breast; ll1 - Immunization history:: Adult Immunizations up to date, Client reports receiving the 2nd dose of the Covid vaccine. - Social history:: Smoking status: Patient denies any tobacco usage or history of. - Family history:: not pertinent. - Hospitalizations: : The patient was recently seen at [facility]. ROS: 11:52 Constitutional: Negative for fever, chills, and weight loss, Eyes: Negative for injury, rn pain, redness, and discharge, Cardiovascular: Negative for palpitations Respiratory: + sob Abdomen/GI: Negative for abdominal pain, nausea, vomiting, diarrhea, and constipation Back: Negative for injury and pain, MS/Extremity: Negative for injury and deformity, Skin: Negative for injury, rash, and discoloration, Neuro: Negative for headache, weakness, numbness, tingling, and seizure. Exam: 10:56 ECG was reviewed by the Attending Physician. rn 11:52 Constitutional: This is a well developed, well nourished patient who is awake, alert, rn + moderate tachypnea with retractions Head/Face: Normocephalic, atraumatic. Cardiovascular: Tachycardic, regular. No pulse deficits. Respiratory: + moderate tachypnea with retractions Abdomen/GI: soft, non-tender Skin: Warm, dry MS/ Extremity: Pulses equal, no cyanosis. Neuro: Awake and alert, GCS 15 Vital Signs: 09:51 BP 146 / 72; Pulse 140; Resp 30; Temp 97.3; Pulse Ox 96% on 3 lpm NC; Pain 10/10; ll1 11:02 Pulse 112; Resp 24; Pulse Ox 100% on CPAP; ll1 13:51 BP 99 / 45; Pulse 109; Resp 22; Pulse Ox 95% on 3 lpm NC; ll1 15:44 BP 145 / 93; Pulse 96; Resp 22; Pulse Ox 100% on 4 lpm NC; ll1 17:15 BP 107 / 64; Pulse 116; Resp 22; Temp 97.9; Pulse Ox 99% on 4 lpm NC; ll1 17:15 blood re-checked off with REINA Roe. ll1 MDM: 09:50 Patient medically screened. rn 12:09 Differential diagnosis: Anemia CHF exacerbation, Chronic Obstructive Pulmonary Disease rn Myocardial Infarction pneumonia, Pneumothorax pulmonary edema, reactive airway disease, Sepsis. Data reviewed: vital signs, nurses notes, lab test result(s), EKG, radiologic studies, plain films, and as a result, I will admit patient. Counseling: I had a detailed discussion with the patient and/or guardian regarding: the historical points, exam findings, and any diagnostic results supporting the discharge/admit diagnosis, lab results, radiology results, the need for further work-up and treatment in the hospital. Response to treatment: the patient's symptoms have markedly improved after treatment, and as a result, I will admit patient. Admission orders: after a detailed discussion of the patient's condition and case, the admit orders are written by me. ED course: Pt markedly improved on BIPAP, hemoccult neg, once again pulmonary edema and anemia. Will admit to Dr. Ruff for further care. . 07/16 09:51 Order name: BMP; Complete Time: 12:03 rn 07/16 09:51 Order name: Blood Culture Adult (2) rn 07/16 09:51 Order name: CBC with Diff; Complete Time: 12:03 rn 07/16 09:51 Order name: Hepatic Function; Complete Time: 12:03 rn 07/16 09:51 Order name: Lipase; Complete Time: 12:03 rn 07/16 09:51 Order name: Magnesium; Complete Time: 12:03 rn 07/16 09:51 Order name: NT PRO-BNP; Complete Time: 12:03 rn 07/16 09:51 Order name: PT-INR; Complete Time: 12:03 rn 07/16 09:51 Order name: Ptt, Activated; Complete Time: 12:03 rn 07/16 09:51 Order name: Troponin HS; Complete Time: 12:03 rn 07/16 09:51 Order name: ABG; Complete Time: 12:03 rn 07/16 10:40 Order name: CBC Smear Scan; Complete Time: 12:03 EDMI 07/16 12:09 Order name: SARS RAPID rn 07/16 12:13 Order name: Occult Blood--Ancillary eb 07/16 09:51 Order name: XRAY CXR (1 view); Complete Time: 12:03 rn 07/16 09:51 Order name: EKG; Complete Time: 09:51 rn 07/16 09:51 Order name: Cardiac monitoring; Complete Time: 09:58 rn 07/16 09:51 Order name: EKG - Nurse/Tech; Complete Time: 09:58 rn 07/16 09:51 Order name: BIPAP rn 07/16 12:37 Order name: Heart Healthy; Complete Time: 16:42 EDMI 07/16 12:37 Order name: CBC with Automated Diff EDMI 07/16 12:37 Order name: Comprehensive Metabolic Panel EDMI 07/16 12:38 Order name: Ferritin EDMI 07/16 12:38 Order name: Transferrin Sat/Iron Binding EDMI 07/16 12:41 Order name: Packed RBC Leukored EDMI 07/16 12:41 Order name: Hematocrit EDMI 07/16 12:41 Order name: Hemoglobin EDMI 07/16 12:41 Order name: ABO/RH typing EDMI 07/16 12:41 Order name: Antibody Screen [facility] 07/16 09:51 Order name: IV Saline Lock; Complete Time: 10:17 rn 07/16 09:51 Order name: Labs collected and sent; Complete Time: 10:17 rn 07/16 09:51 Order name: O2 Per Protocol; Complete Time: rn 07/16 09:51 Order name: O2 Sat Monitoring; Complete Time: rn EC:56 Rate is 130 beats/min. Rhythm is regular. QRS [place] is Normal. DC interval is normal. rn QRS interval is normal. QT interval is normal. No Q waves. T waves are Normal. No ST changes noted. Clinical impression: Sinus tachycardia. Interpreted by me. Reviewed by me. Administered Medications: 10:30 Drug: Lasix (furosemide) 40 mg Route: IVP; Site: left hand; kr3 17:22 Follow up: Response: No adverse reaction ll1 Point of Care Testing: Guaiac: 11:45 Stool Guaiac: Negative; Stool Hemoccult Control: Pass; rn Disposition Summary: 07/16/22 12:13 Hospitalization Ordered Hospitalization Status: Inpatient Admission rn Provider: Rakan Ruff [facility] Condition: Stable rn Problem: new rn Symptoms: have improved rn Bed/Room Type: Standard rn Room Assignment: 206(07/16/22 16:26) dw Diagnosis - Acute pulmonary edema rn - Anemia, unspecified rn - Hypoxemia rn - Pleural effusion, not elsewhere classified rn Forms: - Medication Reconciliation Form rn - SBAR form rn Signatures: Dispatcher [employer] Flora Trevino RN RN Julio Flanagan MD MD rn Botello, Elizabeth eb Lewis, Lynsay, RN RN ll1 Chrissy Hernandez RN RN kr3 Corrections: (The following items were deleted from the chart) 10: 10:24 Immunization history: Adult Immunizations up to date, Client reports receiving ll1 the 2nd dose of the Covid vaccine, ll1 10: 10:24 Social history: Smoking status: Patient denies any tobacco usage or history of. ll1 ll1 11:01 10:34 Labs - recollect needed ordered. eb ll1 16:26 12:13 rn evangelina
--- NOTE | 2022-07-16 12:14 | ER ---
Nurse's Notes [facility] Name: Kelly Phillips Age: 87 yrs Sex: Female : 1935 Arrival Date: 07/16/2022 Time: 09:50 Bed 2 Private MD: Diagnosis: Acute pulmonary edema;Anemia, unspecified;Hypoxemia;Pleural effusion, not elsewhere classified Presentation: 07/16 09:51 Chief complaint: Patient states: Significant SOB noted. EMS states: SOB and upper abd ll1 pain. Recently in the hospital and had her lungs drained of fluid. Found in tripod position with O2 sat 80% upon EMS arrival. Coronavirus screen: Vaccine status: Patient reports receiving the 2nd dose of the covid vaccine. Client denies travel out of the [place] in the last 14 days. difficulty breathing, fatigue, shortness of breath, Client presents with at least one sign or symptom that may indicate coronavirus-19. Standard/surgical mask placed on the client. Ebola Screen: Patient denies travel to an Ebola-affected area in the 21 days before illness onset. Initial Sepsis Screen: Does the patient meet any 2 criteria? RR > 20 per min. Altered Mental Status. Yes Does the patient have a suspected source of infection? Yes: Productive cough/pneumonia. Risk Assessment: Do you want to hurt yourself or someone else? Patient reports no desire to harm self or others. Onset of symptoms is unknown. 09:51 Method Of Arrival: EMS ll1 09:51 Acuity: JASMINA 2 ll1 Triage Assessment: 09:51 General: Appears uncomfortable, ill, Behavior is cooperative, appropriate for age, ll1 listless. Pain: Complains of pain in upper abdomen Quality of pain is described as aching, crampy. Neuro: No deficits noted. Cardiovascular: Reports chest pain, fatigue, lightheadedness, shortness of breath. Respiratory: Reports shortness of breath labored breathing. GI: Reports upper abdominal pain. Historical: - Allergies: 10:24 PENICILLINS; ll1 - PMHx: 10:24 GERD; Hypertensive disorder; pulmonary edema; ll1 - PSHx: 10:24 Appendectomy; tumor removal RT breast; ll1 - Immunization history:: Adult Immunizations up to date, Client reports receiving the 2nd dose of the Covid vaccine. - Social history:: Smoking status: Patient denies any tobacco usage or history of. - Family history:: not pertinent. - Hospitalizations: : The patient was recently seen at [facility]. Screenin:26 Abuse screen: Denies threats or abuse. Nutritional screening: No deficits noted. ll1 Tuberculosis screening: No symptoms or risk factors identified. Fall Risk IV access (20 points). Ambulatory Aid- Crutches/Cane/Walker (15 pts). Gait- Weak (10 pts.). Total Henriquez Fall Scale indicates High Risk Score (45 or more points). Fall prevention measures have been instituted. Side Rails Up X 2 Placed Close to Nursing Station Frequent Obs/Assessments Occuring Family Present and informed to notify staff if the need to leave the bedside As available patient and family educated on Fall Prevention Program and Strategies. Assessment: 11:20 Reassessment: Patient and/or family updated on plan of care and expected duration. Pain kr3 level reassessed. Patient is alert, oriented x 3, equal unlabored respirations, skin warm/dry/pink. Patient states symptoms have improved. 12:30 Reassessment: No changes from previously documented assessment. Patient states feeling ll1 better. 13:54 Reassessment: No changes from previously documented assessment. Patient and/or family ll1 updated on plan of care and expected duration. Pain level reassessed. Patient is alert, oriented x 3, equal unlabored respirations, skin warm/dry/pink. Patient states symptoms have improved. 14:45 Reassessment: No changes from previously documented assessment. ll1 15:30 Reassessment: No changes from previously documented assessment. consent form for PRBC's ll1 in Malian. Language line int. used for translation. No questions about transfusion at this time. Vital Signs: 09:51 BP 146 / 72; Pulse 140; Resp 30; Temp 97.3; Pulse Ox 96% on 3 lpm NC; Pain 10/10; ll1 11:02 Pulse 112; Resp 24; Pulse Ox 100% on CPAP; ll1 13:51 BP 99 / 45; Pulse 109; Resp 22; Pulse Ox 95% on 3 lpm NC; ll1 15:44 BP 145 / 93; Pulse 96; Resp 22; Pulse Ox 100% on 4 lpm NC; ll1 17:15 BP 107 / 64; Pulse 116; Resp 22; Temp 97.9; Pulse Ox 99% on 4 lpm NC; ll1 17:15 blood re-checked off with REINA Roe. ll1 ED Course: 09:50 Patient arrived in ED. eb 09:50 Julio Rouse MD is Attending Physician. rn 09:50 Arm band placed on Patient placed in an exam room, on a stretcher. ll1 10:17 Inserted saline lock: 22 gauge in left hand, using aseptic technique. Blood collected. ll1 10:20 Chrissy Hernandez, REINA is Primary Nurse. kr3 10:24 Triage completed. ll1 10:26 Patient has correct armband on for positive identification. Bed in low position. Call ll1 light in reach. Side rails up X2. Client placed on continuous cardiac and pulse oximetry monitoring. NIBP monitoring applied. playground monitor on. 10:49 XRAY CXR (1 view) In Process Unspecified. EDMS 11:11 Second set of blood cultures drawn by me. jw7 11:19 Inserted saline lock: 24 gauge in right wrist, using aseptic technique. Blood collected.jw7 11:20 Warm blanket given. jw7 12:12 Rakan Ruff MD is Hospitalizing Provider. rn 16:42 Comprehensive Metabolic Panel Sent. kr3 16:42 CBC with Automated Diff Sent. kr3 16:42 Hemoglobin Sent. kr3 16:42 Hematocrit Sent. kr3 17:23 No provider procedures requiring assistance completed. Patient admitted, IV remains in ll1 place. Administered Medications: 10:30 Drug: Lasix (furosemide) 40 mg Route: IVP; Site: left hand; kr3 17:22 Follow up: Response: No adverse reaction ll1 Medication: 10:27 VIS not applicable for this client. ll1 Point of Care Testing: Guaiac: 11:45 Stool Guaiac: Negative; Stool Hemoccult Control: Pass; rn Outcome: 12:13 Decision to Hospitalize by Provider. rn 17:22 Patient left the ED. ll1 17:23 Admitted to Med/surg accompanied by nurse, via stretcher, room 206, with oxygen, with ll1 chart, Report called to REINA Roe 17:23 Condition: stable 17:23 Instructed on the need for admit. Signatures: Dispatcher [employer] EDMS Julio Rouse MD MD rn Botello, Elizabeth eb Lewis, Lynsay, RN RN ll1 Corinne Duff jw7 Chrissy Hernandez RN RN kr3 Corrections: (The following items were deleted from the chart) 10:24 Immunization history: Adult Immunizations up to date, Client reports receiving ll1 the 2nd dose of the Covid vaccine, ll1 10:24 Social history: Smoking status: Patient denies any tobacco usage or history of. ll1 ll1 09:51 BP 146 / 72; Pulse 140bpm; Resp 30bpm; Pulse Ox 96% 3 lpm Nasal Cannula; Pain ll1 08/29; ll1
[2022-07-16 12:57] LABS: SARS-CoV-2 Antigen Rapid Res Negative (Negative)
[2022-07-16] MEDS: FUROSEMIDE 40 MG/4 ML VIAL IV SCH (14:00)
--- NOTE | 2022-07-16 15:00 | P.HP ---
Certification for Inpatient Patient admitted to: Inpatient With expected LOS: >2 Midnights Practitioner: I am a practitioner with admitting privileges, knowledge of patient current condition, hospital course, and medical plan of care. Services: Services provided to patient in accordance with Admission requirements found in Title 42 Section 412.3 of the Code of Federal Regulations Patient History Date of Service: 07/16/22 Reason for admission: Respiratory distress History of Present Illness: Patient is 87 years of age with a history of CHF multiple medical problems admitted with shortness of breath patient is Botswanan-speaking only required BiPAP patient looks more comfortable now she is very anemic no history of any GI bleeding was just recently discharged on June 06 from this hospital with CHF anemia and there was an omental mass also has a history of hypertension there is no biopsy results on the chart Allergies Penicillins Allergy (Intermediate, Verified 05/10/22 09:20) Itching/Hives/Rash Home Medications: Losartan Potassium [Cozaar] 100 mg PO DAILY WITH BREAKFAST 09/16/16 Omeprazole 20 mg PO DAILY 09/16/16 Anastrozole [Arimidex*] 1 mg PO BEDTIME 02/15/22 Aspirin 81 mg PO DAILY 05/10/22 Memantine HCl [Namenda] 5 mg PO BID 05/10/22 Amlodipine Besylate [Norvasc] 5 mg PO DAILY 05/30/22 Atorvastatin Calcium [Lipitor] 40 mg PO BEDTIME 05/30/22 Cyclobenzaprine [Flexeril*] 10 mg PO BEDTIME 05/30/22 Trazodone HCl 50 mg PO BEDTIME 05/30/22 - Past Medical/Surgical History Diabetic: No -: GERD -: HTN -: Rt breast Cancer with chemo-2016 -: dementia -: right breast biopsy 8 years ago -: cyst removed from ovaries -: appy - Family History Mother -: Heart disease Father -: Lung disease, GI disease, Cancer - Social History Alcohol use: No CD- Drugs: No Caffeine use: Yes Review of Systems is unable to be obtained Physical Examination - Vital Signs Temperature: 97.3 F Blood Pressure: 146/72 Pulse: 140 Respirations: 30 Pulse Ox (%): 96 (3 l) - Physical Exam General: Alert, Oriented x1, Cooperative Neck: Supple Respiratory: Clear to auscultation bilaterally Cardiovascular: No edema, Regular rate/rhythm, Normal S1 S2 Gastrointestinal: Normal bowel sounds, Hypoactive, Soft and benign Musculoskeletal: No clubbing, No swelling Integumentary: No rashes, No breakdown - Studies Laboratory Data (last 24 hrs) 07/16/22 10:13: PT 12.5, INR 1.13, APTT 21.5 L 07/16/22 10:13: WBC 10.00, Hgb 6.4 L*, Hct 20.4 L*, Plt Count 492 H 07/16/22 10:13: Sodium 133 L, Potassium 3.8, BUN 26 H, Creatinine 1.65 H, Glucose 229 H, Magnesium 2.3 D, Total Bilirubin 1.2 H, AST 38 H, ALT 15, Alkaline Phosphatase 61, Lipase 127 Microbiology Data (last 24 hrs): 07/16/22 12:13 Stool Occult Blood - Final Assessment and Plan - Problems (Diagnosis) (1) Acute on chronic diastolic heart failure Current Visit: Yes Status: Acute Plan: Patient is 87 years of age admitted with respiratory distress she has a history of coronary artery disease was scheduled to have a CABG that was postponed due to the possibility of abdominal cancer nodularities found in her omentum apparently a CABG was also planned that was canceled does have a history of anemia and no apparent cause he appears to be in heart failure again to be precipitated by severe anemia we will continue with diuretics for now renal function is worse high-sensitivity troponins are elevated I suspect is from the heart failure does have a history of coronary artery disease also has an anion gap metabolic acidosis I am unable to verify the DNR status because the he advised me to contact his son and he does not have his phone number also unable to contact the niece Dr. 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
[2022-07-16] MEDS ORDERED: NA CHLORIDE 0.9% 500 ML ONE (15:41)
[2022-07-16 17:26] VITALS: BMI 23.8
[2022-07-17 05:33] LABS: Absolute Lymphocytes (CBC) 1.7 K/uL (0.7-4.9); Hematocrit 21.3 % (36.0-45.0); Lymphocytes % 16.7 % (15.3-44.8); MCV 72.4 fL (80-100); RBC Red Blood Cell Count 2.95 M/uL (3.86-4.86)
[2022-07-17 05:36] LABS: Urine Bilirubin Negative (Negative); Urine Blood Negative (Negative); Urine Clarity Clear (Clear); Urine Color Yellow (Yellow); Urine Glucose Negative (Negative); Urine Protein Negative (Negative); Urine Urobilinogen 0.2 mg/dL (0.2-1.0); Urine pH 5.5 (5.0-7.0)
[2022-07-17 05:53] LABS: Albumin 3.1 g/dL (3.4-5.0); Bilirubin Total 2.6 mg/dL (0.2-1.0); Potassium 3.6 mmol/L (3.5-5.1); Protein, Total 6.1 g/dL (6.4-8.2)
[2022-07-17 05:58] LABS: Urine Bacteria 20-50 /HPF (<20)
[2022-07-17 05:59] LABS: Urine WBC Clump Few /HPF (None Seen)
[2022-07-17] MEDS ORDERED: POTASSIUM CL SA 10 MEQ TAB PO ONE (09:00)
[2022-07-17] MEDS ORDERED: ENOXAPARIN 40 MG/0.4 ML SQ SCH (09:00)
[2022-07-17] MEDS: FUROSEMIDE 40 MG/4 ML VIAL IV SCH (09:23)
--- NOTE | 2022-07-17 10:03 | P.PN ---
Subjective Date of Service: 07/17/22 Chief Complaint: Congestive heart failure anemia Subjective: Improving (Patient is improving doing well on nasal cannula oxygen) Review of Systems General: Weakness Respiratory: Shortness of Breath Physical Examination - Vital Signs Temperature: 98.0 F Blood Pressure: 106/59 Pulse: 102 Respirations: 20 Pulse Ox (%): 97 - Physical Exam General: Alert, In no apparent distress Neck: Supple Respiratory: Clear to auscultation bilaterally Cardiovascular: No edema, Normal pulses Gastrointestinal: Normal bowel sounds, Soft and benign - Studies Laboratory Data (last 24 hrs) 07/16/22 10:13: PT 12.5, INR 1.13, APTT 21.5 L 07/16/22 10:13: WBC 10.00, Hgb 6.4 L*, Hct 20.4 L*, Plt Count 492 H 07/16/22 10:13: Sodium 133 L, Potassium 3.8, BUN 26 H, Creatinine 1.65 H, Glucose 229 H, Magnesium 2.3 D, Total Bilirubin 1.2 H, AST 38 H, ALT 15, Alkaline Phosphatase 61, Lipase 127 Microbiology Data (last 24 hrs): 07/16/22 10:10 Blood - Blood Anaerobic Blood Culture - Final 07/16/22 12:13 Stool Occult Blood - Final Assessment And Plan - Current Problems (Diagnosis) (1) Acute on chronic diastolic heart failure Current Visit: Yes Status: Acute Plan: Patient is improving we will check room air pulse ox continue with diuretics another chest x-ray has been ordered resume home medications continue with IV Lasix (2) Severe anemia Current Visit: Yes Status: Acute Plan: Hemoglobin stable on iron infusion
[2022-07-17] MEDS: SOD FERRIC GLUC COMPLX/SUCROSE 250 MG in NA CHLORIDE 0.9% 250 ML IV SCH (10:59)
--- NOTE | 2022-07-17 12:51 | EKG ---
Test Date: 2022-07-16 Test Time: 10:00:09 Director Prospect: SOHAIL MEASUREMENT RESULTS: Intervals: Rate: 130 MT: 176 QRSD: 158 QT: 386 QTc: 568 [place]: P: 54 MT: 176 QRS: -50 T: 101 INTERPRETIVE STATEMENTS: Sinus tachycardia Left bundle branch block Abnormal ECG Compared to ECG 06/04/2022 23:27:14 Sinus rhythm no longer present Fusion complex(es) no longer present Left-axis deviation no longer present Electronically Signed On 07-17-22 12:49:35 CDT by Frank Putnam
[2022-07-17] MEDS ORDERED: CODEINE 30MG/APAP 300MG TAB PO PRN (15:59)
[2022-07-17] MEDS ORDERED: POTASSIUM 25 MEQ EFFERV TAB PO ONE (16:30)
[2022-07-17] MEDS: ANASTROZOLE 1 MG TAB PO SCH (20:20)
[2022-07-17] MEDS: CYCLOBENZAPRINE 10 MG TAB PO SCH (20:42)
[2022-07-17] MEDS: TRAZODONE 50 MG TABLET PO SCH (20:43)
[2022-07-17] MEDS: ATORVASTATIN 40 MG TAB PO SCH (20:43)
[2022-07-17] MEDS: MEMANTINE HCL 10 MG TABLET PO SCH (20:43)
[2022-07-17] MEDS ORDERED: MEMANTINE HCL 5 MG PO SCH (21:00)
[2022-07-18] MEDS: PANTOPRAZOLE 40MG TABLET PO SCH (05:25)
[2022-07-18 06:50] LABS: Hematocrit 19.4 % (36.0-45.0); MCV 73.9 fL (80-100); RBC Red Blood Cell Count 2.63 M/uL (3.86-4.86)
[2022-07-18 06:53] LABS: Potassium 4.1 mmol/L (3.5-5.1)
--- NOTE | 2022-07-18 07:40 | RAD REPORT ---
EXAM DESCRIPTION: RAD - Chest Single View - 07/18/2022 6:54 am CLINICAL HISTORY: Follow-up for CHF COMPARISON: Chest Single View dated 07/16/2022; Chest Single View dated 06/02/2022; Chest Single View dated 05/30/2022; Chest Single View dated 05/10/2022 FINDINGS: Lines: None. Lungs: Mild improved lung volumes with similar interstitial airspace disease bilaterally. Pleural: Small effusions. Cardiac: Cardiomegaly. Bones: No acute fractures. Other: IMPRESSION: Interstitial edema and small effusions which is similar though the lung volumes are mild ly improved.
[2022-07-18] MEDS: AMLODIPINE 5 MG TAB PO SCH (09:00)
[2022-07-18] MEDS: MEMANTINE HCL 10 MG TABLET PO SCH ×2 (10:05→21:25)
[2022-07-18] MEDS: LOSARTAN POTASSIUM 50 MG TABLET PO SCH (10:05)
[2022-07-18] MEDS: FUROSEMIDE 40 MG/4 ML VIAL IV SCH (13:10)
[2022-07-18] MEDS: SOD FERRIC GLUC COMPLX/SUCROSE 250 MG in NA CHLORIDE 0.9% 250 ML IV SCH (13:12)
--- NOTE | 2022-07-18 14:52 | P.PN ---
Subjective Date of Service: 07/18/22 Chief Complaint: Congestive heart failure anemia Subjective: New changes (continues to have low hb) Review of Systems 10-point ROS is otherwise unremarkable Physical Examination - Vital Signs Temperature: 97.6 F Blood Pressure: 114/53 Pulse: 110 Respirations: 20 Pulse Ox (%): 100 - Physical Exam General: Alert, In no apparent distress HEENT: Atraumatic, PERRLA, EOMI Neck: Supple, JVD not distended Respiratory: Clear to auscultation bilaterally, Normal air movement Cardiovascular: Regular rate/rhythm, Normal S1 S2 Gastrointestinal: Normal bowel sounds, No tenderness Musculoskeletal: No tenderness Integumentary: No rashes Neurological: Normal speech, Normal tone, Normal affect Lymphatics: No axilla or inguinal lymphadenopathy - Studies Microbiology Data (last 24 hrs): 07/16/22 10:10 Blood - Blood Anaerobic Blood Culture - Final Assessment And Plan - Current Problems (Diagnosis) (1) Severe anemia Current Visit: Yes Status: Acute Plan: No occult blood in the stool. May be due to the cancer (2) Acute on chronic diastolic heart failure Current Visit: Yes Status: Acute Plan: continue losartan and lasix. blood will also stop 3rd spacing (3) Omental mass Current Visit: No Status: Chronic Plan: will see if we can get the biopsy results from [facility]. Discharge Plan: Home Plan to discharge in: Greater than 2 days - Code Status/Comfort Care Code Status Assessed: No Code Status: Full Code Physician Review: Patient Assessed, Agree with Above Assessment and Plan Critical Care: No Time Spent Managing PTS Care (In Minutes): 20
[2022-07-18] MEDS ORDERED: NA CHLORIDE 0.9% 250 ML ONE (17:24)
[2022-07-18] MEDS: ANASTROZOLE 1 MG TAB PO SCH (21:24)
[2022-07-18] MEDS: ATORVASTATIN 40 MG TAB PO SCH (21:25)
[2022-07-18] MEDS: CYCLOBENZAPRINE 10 MG TAB PO SCH (21:25)
[2022-07-18] MEDS: TRAZODONE 50 MG TABLET PO SCH (21:26)
[2022-07-18 22:24] LABS: Hematocrit 24.6 % (36.0-45.0)
[2022-07-19] MEDS: PANTOPRAZOLE 40MG TABLET PO SCH (05:51)
[2022-07-19 06:52] LABS: Absolute Lymphocytes (CBC) 1.3 K/uL (0.7-4.9); Hematocrit 21.6 % (36.0-45.0); Lymphocytes % 17.1 % (15.3-44.8); MCV 73.4 fL (80-100); MPV 7.2 fL (7.6-11.3); RBC Red Blood Cell Count 2.94 M/uL (3.86-4.86)
[2022-07-19 07:03] LABS: Albumin 2.6 g/dL (3.4-5.0); Bilirubin Total 2.3 mg/dL (0.2-1.0); Potassium 3.8 mmol/L (3.5-5.1); Protein, Total 5.1 g/dL (6.4-8.2)
--- NOTE | 2022-07-19 08:15 | EKG ---
Test Date: 2022-07-18 Test Time: 13:22:23 Rental Sales Agent: CLAUDIA MEASUREMENT RESULTS: Intervals: Rate: 113 IL: 158 QRSD: 150 QT: 388 QTc: 532 [place]: P: 66 IL: 158 QRS: -37 T: 154 INTERPRETIVE STATEMENTS: Sinus tachycardia with premature atrial complexes Left axis deviation Left bundle branch block Abnormal ECG Compared to ECG 07/16/2022 21:15:48 Atrial premature complex(es) now present Ventricular premature complex(es) no longer present Electronically Signed On 07-19-22 08:12:08 CDT by Carrillo Coley
--- NOTE | 2022-07-19 08:17 | EKG ---
Test Date: 2022-07-16 Test Time: 21:15:48 Clean In Places Operator: RT-O MEASUREMENT RESULTS: Intervals: Rate: 114 ID: [id number] QRSD: 148 QT: 390 QTc: 537 [place]: P: 67 ID: [id number] QRS: -43 T: 130 INTERPRETIVE STATEMENTS: Sinus tachycardia with occasional premature ventricular complexes Left axis deviation Left bundle branch block Abnormal ECG Compared to ECG 07/16/2022 10:00:09 Ventricular premature complex(es) now present Left-axis deviation now present Electronically Signed On 07-19-22 08:12:39 CDT by Carrillo Coley
[2022-07-19] MEDS: FUROSEMIDE 40 MG/4 ML VIAL IV SCH (08:39)
[2022-07-19] MEDS: MEMANTINE HCL 10 MG TABLET PO SCH ×2 (08:40→21:20)
[2022-07-19] MEDS: LOSARTAN POTASSIUM 50 MG TABLET PO SCH (08:40)
[2022-07-19] MEDS: AMLODIPINE 5 MG TAB PO SCH (08:43)
[2022-07-19] MEDS: SOD FERRIC GLUC COMPLX/SUCROSE 250 MG in NA CHLORIDE 0.9% 250 ML IV SCH (08:44)
[2022-07-19] MEDS ORDERED: POTASSIUM CL SA 10 MEQ TAB PO ONE (09:00)
[2022-07-19 12:01] LABS: Anisocytosis 2+; Blood Morphology Comment NOTED (NOT SEEN); Hypochromasia 2+; Platelet Estimate ADEQ; Poikilocytosis 2+; Polychromasia SLIGHT
[2022-07-19] MEDS ORDERED: NA CHLORIDE 0.9% 250 ML ONE (16:10)
[2022-07-19 21:19] LABS: Hematocrit 25.9 % (36.0-45.0)
[2022-07-19] MEDS: CYCLOBENZAPRINE 10 MG TAB PO SCH (21:19)
[2022-07-19] MEDS: ANASTROZOLE 1 MG TAB PO SCH (21:19)
[2022-07-19] MEDS: ATORVASTATIN 40 MG TAB PO SCH (21:20)
[2022-07-19] MEDS: TRAZODONE 50 MG TABLET PO SCH (21:20)
[2022-07-20] MEDS: PANTOPRAZOLE 40MG TABLET PO SCH (05:41)
[2022-07-20 06:33] LABS: Absolute Lymphocytes (CBC) 1.3 K/uL (0.7-4.9); Hematocrit 26.4 % (36.0-45.0); Lymphocytes % 20.2 % (15.3-44.8); MCV 77.1 fL (80-100); MPV 6.9 fL (7.6-11.3); RBC Red Blood Cell Count 3.43 M/uL (3.86-4.86)
[2022-07-20 06:41] LABS: Albumin 2.7 g/dL (3.4-5.0); Bilirubin Total 1.9 mg/dL (0.2-1.0); Potassium 4.1 mmol/L (3.5-5.1); Protein, Total 5.4 g/dL (6.4-8.2)
[2022-07-20] MEDS: MEMANTINE HCL 10 MG TABLET PO SCH (09:15)
[2022-07-20] MEDS: LOSARTAN POTASSIUM 50 MG TABLET PO SCH (09:16)
[2022-07-20] MEDS: SOD FERRIC GLUC COMPLX/SUCROSE 250 MG in NA CHLORIDE 0.9% 250 ML IV SCH (09:16)
[2022-07-20] MEDS: AMLODIPINE 5 MG TAB PO SCH (09:16)
[2022-07-20] MEDS: FUROSEMIDE 40 MG/4 ML VIAL IV SCH (09:16)
--- NOTE | 2022-07-20 13:01 | P.PN ---
Subjective Date of Service: 07/20/22 Chief Complaint: Congestive heart failure anemia Subjective: Improving (Has recived 3 units of blood) Review of Systems 10-point ROS is otherwise unremarkable Physical Examination - Vital Signs Temperature: 97.9 F Blood Pressure: 106/54 Pulse: 94 Respirations: 18 Pulse Ox (%): 100 - Physical Exam General: Alert, In no apparent distress HEENT: Atraumatic, PERRLA, EOMI Neck: Supple, JVD not distended Respiratory: Clear to auscultation bilaterally, Normal air movement Cardiovascular: Regular rate/rhythm, Normal S1 S2 Gastrointestinal: Normal bowel sounds, No tenderness Musculoskeletal: No tenderness Integumentary: No rashes Neurological: Normal speech, Normal tone, Normal affect Lymphatics: No axilla or inguinal lymphadenopathy Assessment And Plan - Current Problems (Diagnosis) (1) Severe anemia Current Visit: Yes Status: Acute Plan: No occult blood in the stool. May be due to the cancer 8.31 Patient is staying stable Will order a hct. for this afternoon. If stable we can discharge and send home. We can follow up and do blood work and reticulocyte count (2) Acute on chronic diastolic heart failure Current Visit: Yes Status: Acute Plan: continue losartan and lasix. blood will also stop 3rd spacing (3) Omental mass Current Visit: No Status: Chronic Plan: will see if we can get the biopsy results from [facility]. Discharge Plan: Home Plan to discharge in: 24 Hours Physician Review: Patient Assessed, Agree with Above Assessment and Plan Critical Care: No
--- NOTE | 2022-07-20 17:04 | P.DS ---
Admission Date: 07/16/22 Discharge Date: 07/20/22 Disposition: ROUTINE DISCHARGE Discharge Condition: GOOD Reason for Admission: Congestive heart failure anemia - Problems (1) Primary cancer of ovary with widespread metastatic disease Current Visit: Yes Status: Chronic Qualifiers: Laterality: unspecified laterality Qualified Code(s): C56.9 - Malignant neoplasm of unspecified ovary; C80.0 - Disseminated malignant neoplasm, unspecified (2) Severe anemia Current Visit: Yes Status: Acute (3) Acute on chronic diastolic heart failure Current Visit: Yes Status: Acute Brief History of Present Illness: Patient was admitted for anemia and sob by the hospital. She has had a previous admission for anemia as well as CHF. we are currently awaiting the results of a biopsy of her omental mass. This was done by [facility] in [place] She had a transfusion as her hb was in the 6 range Hospital Course: Patient was admitted to the hospital. Given a blood transfusion and an iron transfusion. She received a total of 3 units of prbc. We were able to get her biopsy results. She most likely has ovarian cancer. Will discharge her home and get follow up cbc and reticulocyte count in a week. Will also refer to oncology and obgyn Vital Signs/Physical Exam: Temp Pulse Resp BP Pulse Ox 97.2 F 97 H 18 109/54 L 100 07/20/22 16:00 07/20/22 16:00 07/20/22 16:00 07/20/22 16:00 07/20/22 16:00 General: Alert, In no apparent distress HEENT: Atraumatic, PERRLA, EOMI Neck: Supple, JVD not distended Respiratory: Clear to auscultation bilaterally, Normal air movement Cardiovascular: Regular rate/rhythm, Normal S1 S2 Gastrointestinal: Normal bowel sounds, No tenderness Musculoskeletal: No tenderness Integumentary: No rashes Neurological: Normal speech, Normal tone, Normal affect Lymphatics: No axilla or inguinal lymphadenopathy Laboratory Data at Discharge: WBC 6.30 K/uL (4.3-10.9) D 07/20/22 06:16 Hgb 8.8 g/dL (12.0-15.0) L 07/20/22 06:16 Hct 26.4 % (36.0-45.0) L 07/20/22 06:16 Plt Count 308 K/uL (152-406) 07/20/22 06:16 PT 12.5 SECONDS (9.5-12.5) 07/16/22 10:13 INR 1.13 07/16/22 10:13 APTT 21.5 SECONDS (24.3-36.9) L 07/16/22 10:13 Sodium 133 mmol/L (136-145) L 07/20/22 06:16 Potassium 4.1 mmol/L (3.5-5.1) 07/20/22 06:16 BUN 32 mg/dL (7-18) H 07/20/22 06:16 Creatinine 1.37 mg/dL (0.55-1.3) H 07/20/22 06:16 Glucose 108 mg/dL (74-106) H 07/20/22 06:16 Magnesium 2.3 mg/dL (1.8-2.4) D 07/16/22 10:13 Total Bilirubin 1.9 mg/dL (0.2-1.0) H 07/20/22 06:16 AST 24 U/L (15-37) 07/20/22 06:16 ALT 13 U/L (12-78) 07/20/22 06:16 Alkaline Phosphatase 53 U/L (45-117) 07/20/22 06:16 Lipase 127 U/L (73-393) 07/16/22 10:13 Home Medications: Losartan Potassium [Cozaar] 100 mg PO DAILY WITH BREAKFAST 09/16/16 Omeprazole 20 mg PO DAILY 09/16/16 Anastrozole [Arimidex*] 1 mg PO BEDTIME 02/15/22 Aspirin 81 mg PO DAILY 05/10/22 Memantine HCl [Namenda] 5 mg PO BID 05/10/22 Amlodipine Besylate [Norvasc] 5 mg PO DAILY 05/30/22 Atorvastatin Calcium [Lipitor] 40 mg PO BEDTIME 05/30/22 Cyclobenzaprine [Flexeril*] 10 mg PO BEDTIME 05/30/22 Trazodone HCl 50 mg PO BEDTIME 05/30/22 Diet: Regular Followup: Shiva Lantigua MD [ACTIVE - CAN ADMIT] - Time spent managing pt's care (in minutes): 45
[2022-07-20 19:40] VITALS: BP 117/58; TEMP 96.9
[2022-07-20 21:15] VITALS: O2SAT 97
== END 2022-07-20 20:30 | disposition home or self-care (01) | DRG 754 ==
LOC: ER 09:48 → ERHOLD 12:33 → 2ND 16:47
PROVIDERS: ADMIT Internal Medicine Sleep Medicine; ATTEND Internal Medicine
PROC: 30233N1 Transfusion of Nonautologous Red Blood Cells into Peripheral Vein, Percutaneous Approach (ICD-10-PCS; principal; 2022-07-16)
PROC: 5A09457 Assistance with Respiratory Ventilation, 24-96 Consecutive Hours, Continuous Positive Airway Pressure (ICD-10-PCS; 2022-07-16)
DX: C56.9 Malignant neoplasm of unspecified ovary (principal); I50.33 Acute on chronic diastolic (congestive) heart failure; E87.2 Acidosis; C80.0 Disseminated malignant neoplasm, unspecified; I11.0 Hypertensive heart disease with heart failure; I25.10 Atherosclerotic heart disease of native coronary artery without angina pectoris; D50.9 Iron deficiency anemia, unspecified; K21.9 Gastro-esophageal reflux disease without esophagitis; R06.03 Acute respiratory distress; R00.0 Tachycardia, unspecified; Z85.3 Personal history of malignant neoplasm of breast; Z88.0 Allergy status to penicillin; Z90.49 Acquired absence of other specified parts of digestive tract; Z79.82 Long term (current) use of aspirin; Z79.899 Other long term (current) drug therapy; Z20.822 Contact with and (suspected) exposure to COVID-19
CPT/HCPCS: 36415; 36430; 71045; 80048; 80053; 80076; 81001; 82272; 82728; 82805; 83540; 83690; 83735; 83880; 84466; 84484; 85014; 85018; 85025; 85027; 85610; 85730; 86850; 86900; 86901; 87040; 87086; 87088; 87811; 93005; 94002; 94660; 96374; 97116; 97161; 99285; J1940; J2916; J7040; J7050; P9016

== ENCOUNTER 2022-08-20 22:14 | Emergency (ER) | payer OTHER ==
--- OUTSIDE RECORDS SUMMARY | 2022-08-20 22:24 | XMS REPORT | Continuity of Care Document ---
:1935 Author Organization [facility] t Address [address] [place] [address] Care Team Providers Name Role Phone Frank Putnam Attending Clinician Unavailable DONIS VYAS Attending Clinician Unavailable Donis Vyas MD Attending Clinician ISAIAS SHARPE Attending Clinician Unavailable 1, [facility] Attending Clinician Unavailable DONIS VYAS Attending Clinician Unavailable CAYETANO WINTERS Attending Clinician Unavailable CHAPIS HANSON Attending Clinician Unavailable Chapis Hanson Attending Clinician Colby Hodge Attending Clinician Santa Attending Clinician Unavailable Ariella Shaffer Attending Clinician Unavailable Love-Mbayo_A_AH Attending Clinician Unavailable Iliana Hollins Attending Clinician [phone] Frank Putnam Admitting Clinician Unavailable Yadira Gaston Admitting Clinician Unavailable JUAN FRANCISCOAISHANEHA LARA Admitting Clinician Unavailable Colby Hodge Admitting Clinician Canales_M Admitting Clinician Unavailable Cachorro_A_AH Admitting Clinician Unavailable Payers Payer Name Policy Type Policy Number Effective Date Expiration Date S stanley [employer] OON [id number] 2021 00:00:00 [employer] MGD [id number] 2021 MCR 00:00:00 [employer] [id number] [employer] [id number] 2021 (MEDICARE 00:00:00 REPLACEMENT HMO) [employer] [place] - [id number] 2019 [employer] (MEDICARE 00:00:00 REPLACEMENT/ADVANTA GE - HMO) Problems Condition Condition Condition Status Onset Resolution Last Treating Co mments Source Name Details Category Date Date Treatment Clinician Date FALL FALL Diagnosis Active 2022-06-12 Mem oria Active 06-12 21:03:00 l 06/12/2022 00:00: Harish rodriguez [facility] FLUID FLUID Diagnosis Active 2022-06-22 Mem oria OVERLOAD, OVERLOAD, 06-12 21:57:00 l ACUTE CHF ACUTE CHF 00:00: Cristo suárez Active 00 06/12/2022 [facility] 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:00: 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 Essential Essential Problem Active Halima hall hypertensi Hypertensi 05-22 Fa fredrick on on 00:00: Practic 00 e Gastroesop Gastroesop Problem Active V illage hageal hageal 05-22 Family reflux Reflux 00:00: Practic disease Disease 00 e Arthritis Arthritis Problem Active Halima isabel 05-22 Family 00:00: Practic 00 e FLUID FLUID Diagnosis Active 2022-06-22 Mem oria OVERLOAD, OVERLOAD, 21:57:00 l UNSPECIFIE UNSPECIFIE He lizbeth Adhikari Active [facility] HEART HEART Diagnosis Active 2022-06-22 Me moria FAILURE, FAILURE, 21:57:00 l UNSPECIFIE UNSPECIFIE He rmann D D Active [facility] Benign Benign Problem Active 2022-06-19 Sanya clementine essential essential 23:17:13 l hypertensi hypertensi He rmann on on (disorder) (disorder) Active Problem 06/19/2022 [facility] Dyslipidem Dyslipide Problem Active 2022-06-19 Memoria ia reshma 23:17:13 l (disorder) (disorder) He rmann Active Problem 06/19/2022 [facility] 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 PENICILL Allergy Active [facility] INS to Family substanc Practic e e NO KNOWN Allergy Active [facility] penicill penicill Active [facility] a in in chris [place] Social History Social Habit Start Date Stop Date Quantity Comments Source History SDOH [facility] Alcohol Std Drinks Medica l Center History SDOH [facility] Alcohol Binge Medical Farn[facility] History SDOH [facility] Alcohol Comment Medical C enter History SDOH [facility] Transport Non-Med Medical Center History SDOH [facility] Housing Places Medical Ce nter Lived Tobacco use and 2022-08-18 2022-08-[address] [facility] kes exposure 00:00:00 00:00:00 Medical Center Alcohol intake 2022-08-18 2022-08-[address] [facility] 00:00:00 00:00:00 non-drinker Medical Cente r (finding) History SDOH 2022-08-18 2022-08-[address] [facility] Alcohol Frequency 00:00:00 00:00:00 Medical Center History SDOH 2022-08-18 2022-08-[address] [facility] Transport Med 00:00:00 00:00:[address] History SDOH 2022-08-18 2022-08-[address] [facility] Housing Unable to 00:00:00 00:00:00 Medical Center Pay History SDOH 2022-08-18 2022-08-[address] [facility] Housing Homeless 00:00:00 00:00:00 Medical Center Last Year Social History 2022-06-13 2022-06-13 [facility] 19:32:18 19:32:18 Sex Assigned At [birth year] [facility] 00:00:00 00:00:00 Medical Center Smoking Status Start Date Stop Date Source Never smoker [facility] Medications Ordered Filled Start Stop Current Ordering Indication Dosage Frequency Signature Comments Components Source Medication Medication Date Date Medication? Clinician (SIG) Name Name aspirin 81 Yes 81mg QD Take [address] MG EC 9-30 by mouth [facility] tablet 18:28: daily. Medical 19 Center magnesium Yes 400mg QD Take [address] oxide 9-29 mg by [facility] (MAG-OX) 11:09: mouth Medical 400 mg 44 daily. Center (241.3 mg magnesium) tablet metoprolol Yes 25mg Q.5D Take [address] tartrate 9-29 by mouth 2 [facility] (LOPRESSOR) 11:09: (two) Medic al 25 MG 44 times Center tablet daily. pantoprazol Yes 40mg QD Take [address] e 9-29 by mouth [facility] (PROTONIX) 11:09: daily. Medic al 40 MG 44 Center tablet predniSONE Yes 20mg QD Take [address] (DELTASONE) 9-29 by mouth Luke s 20 MG 11:09: daily. Medical tablet 44 Center losartan Yes 25mg QD Take [address] (COZAAR) 25 9-29 by mouth Luke s MG tablet 11:09: daily. Medica l 44 Center potassium Yes 10meq Q.5D Take [address] chloride 9-29 mEq by [facility] (KLOR-CON-M 11:09: mouth 2 Med ical ) 10 MEQ CR 44 (two) Center tablet times daily. benzonatate Yes 200mg Take [address] (TESSALON) 9-29 mg by [facility] 200 MG 11:05: mouth 3 Medical capsule 38 (three) Center times daily as needed for Cough. bumetanide Yes 1mg Q.5D Take [address] (BUMEX) 1 9-29 by mouth 2 Luke s MG tablet 11:05: (two) Medical 38 times Center daily. albuterol Yes 2.5mg Q.25D Take 2.[address] (PROVENTIL) 9-29 mg by [facility] 2.5 mg/0.5 11:03: nebulizati M edical mL Nebu 11 on 4 Center nebulizer (four) solution times daily. Bumex No Notes: Memoria 7-29 (Same As: l 22:00: Bumex) Rawlings 00 Bumex No Notes: Memoria 7-29 (Same As: l 22:00: Bumex) Micro-K 10 Yes 10 mEq = 1 M emoria oral 7-29 cap, PO, l capsule, 16:31: BID, # 180 Her viera extended 00 cap, 0 release Refill(s), Pharmacy: [facility] [place], 162.56, cm, 06/13/22 14:35:00 CDT, Height, 80.057, kg, 06/13/22 14:35:00 CDT, Weight Micro-K 10 Yes 10 mEq = 1 M emoria oral 7-29 cap, PO, l capsule, 16:31: BID, # 180 Her viera extended 00 cap, 0 release Refill(s), Pharmacy: [facility] [place], 162.56, cm, 06/13/22 14:35:00 CDT, Height, 80.057, kg, 06/13/22 14:35:00 CDT, Weight pantoprazol Yes 40 mg = 1 M emoria e 40 mg 7-29 tab, PO, l oral 16:30: Daily, # Tomas enteric 00 90 tab, 0 coated Refill(s), tablet Pharmacy: [facility], 162.56, cm, 06/13/22 14:35:00 CDT, Height, 80.057, kg, 06/13/22 14:35:00 CDT, Weight magnesium 2021-0 Yes 400 mg = 1 Me moria oxide 400 7-29 tab, PO, l mg oral 16:30: Daily, X Harish n tablet 30 day, # 30 tab, 0 Refill(s), Pharmacy: [facility], 162.56, cm, 06/13/22 14:35:00 CDT, Height, 80.057, kg, 06/13/22 14:35:00 CDT, Weight pantoprazol 2021-0 Yes 40 mg = 1 M emoria e 40 mg 7-29 tab, PO, l oral 16:30: Daily, # Rawlings enteric 00 90 tab, 0 coated Refill(s), tablet Pharmacy: [facility], 162.56, cm, 06/13/22 14:35:00 CDT, Height, 80.057, kg, 06/13/22 14:35:00 CDT, Weight magnesium 2021-0 Yes 400 mg = 1 Me moria oxide 400 7-29 tab, PO, l mg oral 16:30: Daily, X Harish n tablet day, # 30 tab, 0 Refill(s), Pharmacy: [facility], 162.56, cm, 06/13/22 14:35:00 CDT, Height, 80.057, kg, 06/13/22 14:35:00 CDT, Weight losartan 25 2021-0 Yes 25 mg = 1 M emoria mg oral 7-29 tab, PO, l tablet 16:29: Daily, # Tomas 00 90 tab, 1 Refill(s), Pharmacy: [facility], 162.56, cm, 06/13/22 14:35:00 CDT, Height, 80.057, kg, 06/13/22 14:35:00 CDT, Weight losartan 25 2021-0 Yes 25 mg = 1 M emoria mg oral 7-29 tab, PO, l tablet 16:29: Daily, # Rawlings 00 90 tab, 1 Refill(s), Pharmacy: [facility], 162.56, cm, 06/13/22 14:35:00 CDT, Height, 80.057, kg, 06/13/22 14:35:00 CDT, Weight predniSONE 2021-0 Yes 20 mg = 1 Me moria 20 mg oral 7-29 tab, PO, l tablet 16:28: Daily, X 3 Alejandra nn 00 day, # 3 tab, 0 Refill(s), Pharmacy: [facility], 162.56, cm, 06/13/22 14:35:00 CDT, Height, 80.057, kg, 06/13/22 14:35:00 CDT, Weight metoprolol 2021-0 Yes 25 mg = 1 Me moria tartrate 25 7-29 tab, PO, l mg oral 16:28: BID, # 60 Alejandra nn tablet 00 tab, 0 Refill(s), Pharmacy: [facility], 162.56, cm, 06/13/22 14:35:00 CDT, Height, 80.057, kg, 06/13/22 14:35:00 CDT, Weight predniSONE 2021-0 Yes 20 mg = 1 Me moria 20 mg oral 7-29 tab, PO, l tablet 16:28: Daily, X 3 Alejandra nn 00 day, # 3 tab, 0 Refill(s), Pharmacy: [facility], 162.56, cm, 06/13/22 14:35:00 CDT, Height, 80.057, kg, 06/13/22 14:35:00 CDT, Weight metoprolol 2021-0 Yes 25 mg = 1 Me moria tartrate 25 7-29 tab, PO, l mg oral 16:28: BID, # 60 Alejandra nn tablet 00 tab, 0 Refill(s), Pharmacy: [facility], 162.56, cm, 06/13/22 14:35:00 CDT, Height, 80.057, kg, 06/13/22 14:35:00 CDT, Weight benzonatate 2021-0 Yes 200 mg = 1 Memoria 200 mg oral 7-29 cap, PO, l capsule 16:27: TID, do Tomas 00 not crush or chew, X 10 day, # 30 cap, 0 Refill(s), Pharmacy: [facility], 162.56, cm, 06/13/22 14:35:00 CDT, Height, 80.057, kg, 06/13/22 14:35:00 CDT, Weight bumetanide 2021-0 Yes 1 mg = 1 Mem oria 1 mg oral 7-29 tab, PO, l tablet 16:27: BID, # 60 Harish n 00 tab, 1 Refill(s), Pharmacy: [facility], 162.56, cm, 06/13/22 14:35:00 CDT, Height, 80.057, kg, 06/13/22 14:35:00 CDT, Weight dextrometho 2021-0 Yes 10 mL, PO, Memoria rphan-guaiF 7-29 Q6H, PRN l ENesin 10 16:27: Cough, X Herm nupur mg-200 mg/5 00 14 day, # mL oral 120 mL, 0 liquid Refill(s), Pharmacy: [facility], 162.56, cm, 06/13/22 14:35:00 CDT, Height, 80.057, kg, 06/13/22 14:35:00 CDT, Weight benzonatate 2021-0 Yes 200 mg = 1 Memoria 200 mg oral 7-29 cap, PO, l capsule 16:27: TID, do Tomas 00 not crush or chew, X 10 day, # 30 cap, 0 Refill(s), Pharmacy: [facility], 162.56, cm, 06/13/22 14:35:00 CDT, Height, 80.057, kg, 06/13/22 14:35:00 CDT, Weight bumetanide 2021-0 Yes 1 mg = 1 Mem oria 1 mg oral 7-29 tab, PO, l tablet 16:27: BID, # 60 Harish n 00 tab, 1 Refill(s), Pharmacy: [facility], 162.56, cm, 06/13/22 14:35:00 CDT, Height, 80.057, kg, 06/13/22 14:35:00 CDT, Weight dextrometho 2021-0 Yes 10 mL, PO, Memoria rphan-guaiF 7-29 Q6H, PRN l ENesin 10 16:27: Cough, X Herm nupur mg-200 mg/5 00 14 day, # mL oral 120 mL, 0 liquid Refill(s), Pharmacy: [facility], 162.56, cm, 06/13/22 14:35:00 CDT, Height, 80.057, kg, 06/13/22 14:35:00 CDT, Weight albuterol-i 2021-0 Yes 3 mL, NEB, Memoria pratropium 7-29 RQ4H, # l 2.5-0.5 mg 16:26: 540 mL, 0 He rmann inhalation 00 Refill(s), solution Pharmacy: [facility], 162.56, cm, 06/13/22 14:35:00 CDT, Height, 80.057, kg, 06/13/22 14:35:00 CDT, Weight aspirin 81 2021-0 Yes 81 mg = 1 Me moria mg tablet, 7-29 tab, PO, l enteric 16:26: Daily, # Harish n coated 00 90 tab, 0 Refill(s), Pharmacy: [facility], 162.56, cm, 06/13/22 14:35:00 CDT, Height, 80.057, kg, 06/13/22 14:35:00 CDT, Weight albuterol-i 2021-0 Yes 3 mL, NEB, Memoria pratropium - RQ4H, # l 2.5-0.5 mg 16:26: 540 mL, 0 He rmann inhalation 00 Refill(s), solution Pharmacy: [facility], 162.56, cm, 06/13/22 14:35:00 CDT, Height, 80.057, kg, 06/13/22 14:35:00 CDT, Weight aspirin 81 2021-0 Yes 81 mg = 1 Me moria mg tablet, 7-29 tab, PO, l enteric 16:26: Daily, # Harish n coated 00 90 tab, 0 Refill(s), Pharmacy: [facility], 162.56, cm, 06/13/22 14:35:00 CDT, Height, 80.057, kg, 06/13/22 14:35:00 CDT, Weight magnesium 2021-0 No Notes: Memori a sulfate 7-29 WASTE: F/P l 14:02: - Sink; E - Municipal Trash Bin potassium Yes /= 14 Memoria chloride 7-29 [place] Citizen, l 14:02: march dissolve each 20 mEq tablet in 4 oz of water. Allow about 2 minutes for the tablets to disintegra te. Stir before giving to prepare slurry and administer . Please exclude patient's with feeding tube less than 14 [place] Citizen (Dobhoff, J-tube, etc) and pediatric and patients. magnesium 2021-0 No Notes: Memori a sulfate 7-29 WASTE: F/P l 14:02: - Sink; E - Municipal Trash Bin potassium Yes /= 14 Memoria chloride 7-29 [place], l 14:02: march dissolve each 20 mEq tablet in 4 oz of water. Allow about 2 minutes for the tablets to disintegra te. Stir before giving to prepare slurry and administer . Please exclude patient's with feeding tube less than 14 [place] Citizen (Dobhoff, J-tube, etc) and pediatric and patients. aspirin 0 No Notes: Do Memor ia 7-27 not crush l 14:00: or chew. (Same As: Ecotrin) aspirin 0 No Notes: Do Memor ia 7-27 not crush l 14:00: or chew. (Same As: Ecotrin) predniSONE 2021-0 No 20 mg, 1 Mem oria 7-27 tab, l 13:00: Route: PO, Drug form: TAB, Daily, Dosing Weight 80.057, kg, Start date: 06/15/22 8:00:00 CDT, Duration: 30 day, Stop date: 07/14/22 8:00:00 CDT, 0 predniSONE 2021-0 No 20 mg, 1 Mem oria 7-27 tab, l 13:00: Route: PO, Drug form: TAB, Daily, Dosing Weight 80.057, kg, Start date: 06/15/22 8:00:00 CDT, Duration: 30 day, Stop date: 07/14/22 8:00:00 CDT, 0 potassium 2021-0 No /= 14 Memoria chloride 20 7-27 [place] Citizen, l mEq oral 11:31: may Tomas tablet, 00 dissolve extended each 20 release mEq tablet (KCL) in 4 oz of water. Allow about 2 minutes for the tablets to disintegra te. Stir before giving to prepare slurry and administer . Please exclude patient's with feeding tube less than 14 [place] Citizen (Dobhoff, J-tube, etc) and pediatric and patients. potassium No /= 14 Memoria chloride 20 7-27 [place], l mEq oral 11:31: march Tomas tablet, 00 dissolve extended each 20 release mEq tablet (KCL) in 4 oz of water. Allow about 2 minutes for the tablets to disintegra te. Stir before giving to prepare slurry and administer . Please exclude patient's with feeding tube less than 14 [place] Citizen (Dobhoff, J-tube, etc) and pediatric and patients. metoprolol 0 No Notes: Memor ia tartrate 7-27 (Same as: l 02:00: Lopressor) metoprolol 0 No Notes: Memor ia tartrate 7-27 (Same as: l 02:00: Lopressor) Cepacol 0 No Notes: Memoria Sore Throat 7-26 Same as: l 15 mg-3.6 19:24: Cepacol Alejandra nn mg mucous 00 membrane lozenge Cepacol 0 No Notes: Memoria Sore Throat 7-26 Same as: l 15 mg-3.6 19:24: Cepacol Alejandra nn mg mucous 00 membrane lozenge anastrozole 0 No Notes: Sanya clementine 7-26 (Same as: l 14:00: Arimidex) Hazardous Drug Group 1: Antineopla stic Hazardous Drug -- Refer to safe handling procedure PPE Matrix WASTE: F/P - Black; E Yellow omeprazole No 20 mg, 1 Mem oria 7-26 cap, l 14:00: Route: PO, Drug form: DRC, Daily, Dosing Weight 63.636, kg, Start date: 06/14/22 9:00:00 CDT, Duration: 30 day, Stop date: 07/13/22 9:00:00 CDT Protonix 2021-0 No Notes: Memoria 7-26 Tablet l 14:00: should not Tomas 00 be chewed or crushed. (Same as: Protonix) anastrozole No Notes: Sanya clementine 7-26 (Same as: l 14:00: Arimidex) Hazardous Drug [...] Protonix) atorvastati No Notes: Sanya clementine n 7-26 (Same as: l 02:00: Lipitor) atorvastati No Notes: Sanya clementine n 7-26 (Same as: l 02:00: Lipitor) docusate No Notes: Memoria 7-25 (Same as: l 14:00: Colace) (Do Not Crush) Saline No Notes: Memoria Flush 0.9% 7-25 (Same as: l 14:00: BD Posiflush) docusate No Notes: Memoria 7-25 (Same as: l 14:00: Colace) (Do Not Crush) Saline No Notes: Memoria Flush 0.9% 7-25 (Same as: l 14:00: BD Tomas 00 Posiflush) anastrozole Yes 1 mg = 1 Me moria 1 mg oral 7-25 tab, PO, l tablet 13:59: Daily amLODIPine No 5 mg = 1 Mem oria 5 mg oral 7-25 tab, PO, l tablet 13:59: Daily atorvastati No 40 mg = 1 M emoria n 40 mg 7-25 tab, PO, l oral tablet 13:59: Bedtime Her viera 00 hydrochloro No 12.5 mg = M emoria thiazide 7-25 1 tab, PO, l 12.5 mg 13:59: Daily Tomas oral tablet 00 omeprazole No 20 mg = 1 Me moria 20 mg oral 7-25 cap, PO, l delayed 13:59: Daily Rawlings release 00 capsule losartan No 100 mg = 1 Mem oria 100 mg oral 7-25 tab, PO, l tablet 13:59: Daily Tomas rosuvastati Yes 5 mg = 1 Me moria n 5 mg oral 7-25 tab, PO, l tablet 13:59: Bedtime Rawlings anastrozole Yes 1 mg = 1 Me moria 1 mg oral 7-25 tab, PO, l tablet 13:59: Daily Tomas amLODIPine No 5 mg = 1 Mem oria 5 mg oral 7-25 tab, PO, l tablet 13:59: Daily Rawlings atorvastati No 40 mg = 1 M emoria n 40 mg 7-25 tab, PO, l oral tablet 13:59: Bedtime Her viera 00 hydrochloro No 12.5 mg = M emoria thiazide 7-25 1 tab, PO, l 12.5 mg 13:59: Daily Tomas oral tablet 00 omeprazole No 20 mg = 1 Me moria 20 mg oral 7-25 cap, PO, l delayed 13:59: Daily Rawlings release capsule losartan No 100 mg = 1 Mem oria 100 mg oral 7-25 tab, PO, l tablet 13:59: Daily Rawlings rosuvastati Yes 5 mg = 1 Me moria n 5 mg oral 7-25 tab, PO, l tablet 13:59: Bedtime Tomas furosemide No Notes: Memor ia 7-25 (Same as: l 13:00: Lasix) MEDICATION WASTE Product Size: 40 mg Product Wasted: ___ mg furosemide No Notes: Memor ia 7-25 (Same as: l 13:00: Lasix) MEDICATION WASTE Product Size: 40 mg Product Wasted: ___ mg albuterol-i No Notes: Sanya clementine pratropium 7-25 (Same as: l 2.5-0.5 mg 12:00: Duoneb) Herm unpur inhalation 00 solution albuterol-i No Notes: Sanya clementine pratropium 7-25 (Same as: l 2.5-0.5 mg 12:00: Duoneb) Herm nupur inhalation 00 solution levofloxaci No Notes: Do M emoria n 7-25 not give l 09:00: w/antacids Rawlings , dairy pdt & minerals Take 1 hr before or 2 hr after dairy pdt (Same as:Levaqui n) levofloxaci No Notes: Do M emoria n 7-25 not give l 09:00: w/antacids Tomas , dairy pdt & minerals Take 1 hr before or 2 hr after dairy pdt (Same as:Levaqui n) albuterol No Notes: SEE Me moria 0.083% 7-25 RT l inhalation 08:42: DOCUMENTAT H ermann solution 00 ION (Same as: Proventil) albuterol No Notes: SEE Me moria 0.083% 7-25 RT l inhalation 08:42: DOCUMENTAT H ermann solution 00 ION (Same as: Proventil) predniSONE No Notes: Memor ia 7-25 Take with l 08:41: food. predniSONE No Notes: Memor ia 7-25 Take with l 08:41: food. No 250 mL, Memoria (bolus) IV 7-25 999 ml/hr, l 07:01: Route: IV, Drug Form: INJ, Dosing Weight 63.636, kg, PRN, PRN Blood Glucose Results, Start date: 06/13/22 2:01:00 CDT, Duration: 30 day, Stop date: 07/13/22 2:00:00 CDT, Infuse over: 0.3 hr, 0 No 250 mL, Memoria (bolus) IV 7-25 999 ml/hr, l 07:01: Route: IV, Drug Form: INJ, Dosing Weight 63.636, kg, PRN, PRN Blood Glucose Results, Start date: 06/13/22 2:01:00 CDT, Duration: 30 day, Stop date: 07/13/22 2:00:00 CDT, Infuse over: 0.3 hr, 0 Lovenox No Notes: Memoria 7-25 (Same as: l 07:00: Lovenox) Lovenox No Notes: Memoria 7-25 (Same as: l 07:00: Lovenox) Saline No Notes: Memoria Flush 0.9% 7-25 (Same as: l 06:53: BD Posiflush) Saline No Notes: Memoria Flush 0.9% 7-25 (Same as: l 06:53: BD Posiflush) Dextrose No 25 mL, Memoria 50% Syringe 06-13 Route: l (D50W) 06:51: IVP, Dosing Weight 63.636, kg, PRN, PRN Blood Glucose Results, Start date: 06/13/22 1:51:00 CDT, Duration: 30 day, Stop date: 07/13/22 1:50:00 CDT glucagon No 1 mg, Memoria 06-13 Route: IM, l 06:51: Drug form: PDR/INJ, PRN, Dosing Weight 63.636, kg, PRN Blood Glucose Results, Start date: 06/13/22 1:51:00 CDT, Duration: 30 day, Stop date: 07/13/22 1:50:00 CDT, 0 ondansetron No Notes: Sanya clementine 06-13 (Same as: l 06:51: Zofran) MEDICATION WASTE Product Size: 4 mg Product Wasted: ___ mg melatonin No Notes: Memori a 06-13 (Same as: l 06:51: Melatonin) acetaminoph No Notes: Do M emoria en 06-13 not exceed l 06:51: 4 gm/day. Rawlings 00 (Same as: Tylenol) dextrometho No Notes: Sanya clementine rphan-guaiF -25 (dextromet l ENesin 10 06:51: horphan-gu He rmann mg-200 mg/5 00 aifenesin mL oral 10-100mg/5 liquid ml 10 ml oral SOLN ud) (Same as: Robitussin DM) hydrALAZINE No Notes: Sanya clementine 7-25 (Same as: l 06:51: Apresoline Tomas ) Push over 5 minutes Tessalon No Notes: Memoria Perles 7-25 (Same As: l 06:51: Tessalon Rawlings 00 Perles) "Do Not Crush" potassium No /= 14 Memoria chloride 7-25 [place] Citizen, l 06:51: march Tomas 00 dissolve each 20 mEq tablet in 4 oz of water. Allow about 2 minutes for the tablets to disintegra te. Stir before giving to prepare slurry and administer . Please exclude patient's with feeding tube less than 14 [place] Citizen (Dobhoff, J-tube, etc) and pediatric and patients. potassium No Notes: Memori a phosphate-s -25 (Same as: l odium 06:51: Phos-NaK) Tomas phosphate 00 Each 1.5 250 mg-280 gm pkt has mg-160 mg 250mg oral powder phosphorou for s. Mix reconstitut w/2.5oz ion water and stir. potassium No Notes: Memori a phosphate + 7-25 (Same as: l Sodium 06:51: K Rawlings Chloride 00 Phosphate. 0.9% IV 250 ) Do not mL infuse phosphorou s concurrent ly in the same line as TPN or IVF that contains calcium. For double lumen central lines, phosphorou s may be infused in a separate lumen from TPN. 1 mMol phoshate has 1.47 mEq potassium Infuse over 4 hours sodium No Notes: Memoria phosphate + 7-25 Infuse l Dextrose 5% 06:51: over 4 Herm nupur in Water IV 00 hour. Do 250 mL not infuse phosphorou s concurrent ly in the same line as TPN or IVF that contains calcium. For double lumen central lines, phosphorou s may be infused in a separate lumen from TPN. magnesium No Notes: Memori a sulfate 06-13 WASTE: F/P l 06:51: - Sink; E - Municipal Trash Bin magnesium No Notes: Memori a oxide 06-13 (Same as: l 06:51: Mag-Ox 400) Magnesium oxide [id number] g elemental magnesium Dose=____m g magnesium oxide (___mg elemental magnesium) calcium No Notes: Memoria gluconate 06-13 WASTE: F/P l 06:51: - Sink; E - Municipal Trash Bin calcium No Notes: Memoria gluconate + 06-13 WASTE: F/P l Sodium 06:51: - Sink; E Harish n Chloride 00 - 0.9% IV 120 Municipal mL Trash Bin Dextrose No 25 mL, Memoria 50% Syringe 06-13 Route: l (D50W) 06:51: IVP, Dosing Weight 63.636, kg, PRN, PRN Blood Glucose Results, Start date: 06/13/22 1:51:00 CDT, Duration: 30 day, Stop date: 07/13/22 1:50:00 CDT glucagon No 1 mg, Memoria 06-13 Route: IM, l 06:51: Drug form: PDR/INJ, PRN, Dosing Weight 63.636, kg, PRN Blood Glucose Results, Start date: 06/13/22 1:51:00 CDT, Duration: 30 day, Stop date: 07/13/22 1:50:00 CDT, 0 ondansetron No Notes: Sanya clementine 06-13 (Same as: l 06:51: Zofran) MEDICATION WASTE Product Size: 4 mg Product Wasted: ___ mg melatonin No Notes: Memori a 06-13 (Same as: l 06:51: Melatonin) acetaminoph No Notes: Do M emoria en 06-13 not exceed l 06:51: 4 gm/day. (Same as: Tylenol) dextrometho No Notes: Sanya clementine rphan-guaiF 7-25 (dextromet l ENesin 10 06:51: horphan-gu He rmann mg-200 mg/5 00 aifenesin mL oral 10-100mg/5 liquid ml 10 ml oral SOLN ud) (Same as: Robitussin DM) hydrALAZINE No Notes: Sanya clementine 7-25 (Same as: l 06:51: Apresoline Tomas 00 ) Push over 5 minutes Tessalon No Notes: Memoria Perles 7-25 (Same As: l 06:51: Tessalon Rawlings 00 Perles) "Do Not Crush" potassium No /= 14 Memoria chloride 7-25 [place], l 06:51: march Rawlings 00 dissolve each 20 mEq tablet in 4 oz of water. Allow about 2 minutes for the tablets to disintegra te. Stir before giving to prepare slurry and administer . Please exclude patient's with feeding tube less than 14 [place] (Dobhoff, J-tube, etc) and pediatric and patients. potassium No Notes: Memori a phosphate-s -25 (Same as: l odium 06:51: Phos-NaK) Tomas phosphate 00 Each 1.5 250 mg-280 gm pkt has mg-160 mg 250mg oral powder phosphorou for s. Mix reconstitut w/2.5oz ion water and stir. potassium No Notes: Memori a phosphate + 7-25 (Same as: l Sodium 06:51: K Tomas [...] hours sodium No Notes: Memoria phosphate + 7-25 Infuse l Dextrose 5% 06:51: over 4 Herm nupur in Water IV 00 hour. Do 250 mL not infuse phosphorou s concurrent ly in the same line as TPN or IVF that contains calcium. For double lumen central lines, phosphorou s may be infused in a separate lumen from TPN. magnesium No Notes: Memori a sulfate -25 WASTE: F/P l 06:51: - Sink; E Tomas - Municipal Trash Bin magnesium No Notes: Memori a oxide 7-25 (Same as: l 06:51: Mag-Ox Tomas 00 400) Magnesium oxide [id number] g elemental magnesium Dose=____m g magnesium oxide (___mg elemental magnesium) calcium No Notes: Memoria gluconate 7-25 WASTE: F/P l 06:51: - Sink; E Tomas 00 - Municipal Trash Bin calcium No Notes: Memoria gluconate + 06-13 WASTE: F/P l Sodium 06:51: - Sink; E Harish n Chloride 00 - 0.9% IV 120 Municipal mL Trash Bin Lasix No Notes: Memoria 7-25 (Same as: l 02:15: Lasix) Rawlings MEDICATION WASTE Product Size: 40 mg Product Wasted: ___ mg Lasix No Notes: Memoria 7-25 (Same as: l 02:15: Lasix) Tomas 00 MEDICATION WASTE Product Size: 40 mg Product Wasted: ___ mg dexamethaso No 10 mg, 2.5 Memoria ne 7-25 mL, Route: l 01:03: IVP, Drug Rawlings 00 form: INJ, ONCE, Dosing Weight 63.636, kg, Priority: STAT, Start date: 06/12/22 20:03:00 CDT, Stop date: 06/12/22 20:03:00 CDT, 0 albuterol-i No Notes: Sanya clementine pratropium 7-25 (Same as: l 2.5-0.5 mg 01:03: Duoneb) Herm nupur inhalation 00 solution dexamethaso No 10 mg, 2.5 Memoria ne 7-25 mL, Route: l 01:03: IVP, Drug Tomas 00 form: INJ, ONCE, Dosing Weight 63.636, kg, Priority: STAT, Start date: 06/12/22 20:03:00 CDT, Stop date: 06/12/22 20:03:00 CDT, 0 albuterol-i No Notes: Sanya clementine pratropium 7-25 (Same as: l 2.5-0.5 mg 01:03: Duoneb) Herm nupur inhalation 00 solution Tramadol Tramadol Yes Jose Alberto 1 tablet Common HCl HCl 6-30 [facility] 00:00: - [facility] 00 [facility] Hydrochloro Hydrochloro Yes Jose Alberto not Common thiazide thiazide Ring defined [facility] Anastrozole Anastrozole Yes Jose Alberto not Common Ring defined [facility] anastrozole anastrozole No 1 Q1D anastrozol [place] 1 mg tablet 1 mg tablet e 1 mg Family Take 1 Take 1 tablet Practic tablet tablet Take 1 e every day every day tablet by oral by oral every day route. route. by oral route. Omeprazole Omeprazole Yes Jose Alberto not Common Ring defined [facility] hydrochloro hydrochloro No 1 Q1D hydrochlor Village thiazide thiazide othiazide Fa fredrick 12.5 mg 12.5 mg 12.5 mg Practi c tablet Take tablet Take tablet e 1 tablet 1 tablet Take 1 every day every day tablet by oral by oral every day route. route. by oral route. Losartan Losartan Yes Jose Alberto not Comm on Potassium Potassium Ring defined [facility] omeprazole omeprazole No 1 Q1D omeprazole [facility] 20 mg 20 mg 20 mg [...] Name Observation Time Observation Value Comments Source HEIGHT 2022-08-18 10:40:00 160 cm WEIGHT 2022-08-18 10:40:00 68.04 kg HEIGHT 2022-08-18 10:40:00 160 cm WEIGHT 2022-08-18 10:40:00 68.04 kg HEIGHT 2022-08-18 10:40:00 160 cm WEIGHT 2022-08-18 10:40:00 68.04 kg Systolic blood 2022-08-18 12:18:00 116 mm[Hg] [facility] Diastolic blood 2022-08-18 12:18:00 53 mm[Hg] [facility] Heart rate 2022-08-18 12:18:00 91 /min [facility] Respiratory rate 2022-08-18 12:18:00 18 /min [facility] Oxygen saturation in 2022-08-18 12:18:00 100 /min [facility] Arterial blood by Medical Ce nter Pulse oximetry Body temperature 2022-08-18 10:40:00 36.72 Lovely [facility] Body height 2022-08-18 10:40:00 160 cm [facility] Body weight 2022-08-18 10:40:00 68.04 kg [facility] BMI 2022-08-18 10:40:00 26.57 kg/m2 [facility] Heart Rate 2022-06-17 16:38:41 [facility] Systolic (mm Hg) 2022-06-17 16:38:36 Sanya rial Tomas Diastolic (mm Hg) 2022-06-17 16:38:36 Mem orial [facility] Heart Rate 2022-06-17 16:38:36 [facility] Heart Rate 2022-06-17 13:21:37 [facility] Systolic (mm Hg) 2022-06-17 13:21:31 Sanya rial [facility] Diastolic (mm Hg) 2022-06-17 13:21:31 Mem orial Tomas Temperature Oral (F) 2022-06-17 13:19:30 98.3 F [facility] Respitory Rate 2022-06-17 12:55:00 Memori al Tomas Temperature Oral (F) 2022-06-17 09:42:49 97.5 F [facility] Systolic (mm Hg) 2022-06-17 09:42:39 Sanya rial [facility] Diastolic (mm Hg) 2022-06-17 09:42:39 Mem orial Tomas Temperature Oral (F) 2022-06-17 05:57:22 97.5 F [facility] Respitory Rate 2022-06-17 01:23:00 Memori al [facility] Respitory Rate 2022-06-16 12:48:00 Memori al Tomas Height 2022-06-13 19:35:00 162.56 cm [facility] Weight 2022-06-13 19:35:00 [facility] BMI Calculated 2022-06-13 19:35:00 Memori al [place] Respitory Rate 2022-06-13 11:35:00 Memori al Tomas Respitory Rate 2022-06-13 11:00:00 Memori al Tomas Systolic (mm Hg) 2022-06-13 11:00:00 Sanya rial Tomas Diastolic (mm Hg) 2022-06-13 11:00:00 Mem orial [place] Respitory Rate 2022-06-13 10:00:00 Memori al Tomas Systolic (mm Hg) 2022-06-13 10:00:00 Sanya rial [place] Diastolic (mm Hg) 2022-06-13 10:00:00 Mem orial [place] Systolic (mm Hg) 2022-06-13 09:14:00 Sanya rial Tomas Diastolic (mm Hg) 2022-06-13 09:14:00 Mem orial Tomas Temperature Oral (F) 2022-06-13 01:05:00 98.1 F [facility] Height 2022-06-13 00:20:00 165.1 cm [facility] BMI Calculated 2022-06-13 00:20:00 Memori al Tomas Weight 2022-06-13 00:20:00 [facility] Heart Rate 2022-06-13 00:20:00 [facility] Temperature Oral (F) 2022-06-13 00:20:00 98 F [facility] Procedures Procedure Date / Time Performing Clinician Source Performed US THORACENTESIS 2022-08-18 11:57:00 Donis Vyas [facility] XR CHEST 1 VIEW PORTABLE / 2022-08-18 11:55:00 Arin Landry [facility] BEDSIDE [facility] CBC W/PLT COUNT & AUTO 2022-08-18 09:50:00 Arin Landry [facility] DIFFERENTIAL [facility] PROTHROMBIN TIME/INR 2022-08-18 09:50:00 Arin Landry [facility] CBC W/PLT COUNT & AUTO 2022-08-18 09:50:00 Arin Landry [facility] DIFFERENTIAL [facility] ELECTROCARDIOGRAM COMPLETE 2022-08-15 14:55:00 B [facility] CT ABDOMEN/PELVIS WITH IV 2022-08-03 16:46:00 Donis Vyas [facility] CONTRAST [facility] CT CHEST WITH IV CONTRAST 2022-08-03 16:46:00 Donis Vyas [facility] AMB REF TO INTERVENTIONAL 2022-08-03 15:35:49 [facility] EXTERNAL Medicine AMB REF TO CARDIOLOGY [facility] 2022-08-03 15:33:11 [facility] CANCER ANTIGEN 125 2022-08-03 14:42:00 [facility] CBC W/AUTO DIFF WITH 2022-08-03 14:42:00 [facility] COMPREHENSIVE METABOLIC 2022-08-03 14:42:00 [facility] CANCER ANTIGEN 125 2022-08-03 14:15:18 [facility] CBC W/AUTO DIFF WITH 2022-08-03 14:15:18 [facility] METABOLIC 2022-08-03 14:15:18 [facility] [id number] 2022-05-25 00:00:00 LEEGA [facility] [id number] 2022-05-25 00:00:00 LEEGA [facility] [id number] 2022-05-25 00:00:00 PATMA.12 [facility] [id number] 2022-05-25 00:00:00 PATMA.12 [facility] [id number] 2022-05-18 00:00:00 RASSA [facility] [id number] 2022-05-18 00:00:00 RASSA [facility] [id number] 2022-05-18 00:00:00 RASSA [facility] [id number] 2022-05-18 00:00:00 RASSA [facility] Plan of Care Planned Activity Planned Date Details Comments Source Future Scheduled Test 2022-07-21 INFLUENZA VACCINE (#1) [facility] 00:00:00 [code = INFLUENZA Medical Ce nter VACCINE (#1)] Future Scheduled Test 2021-11-[address] [facility] 00:00:00 (12+) [code = Medical Center DEPRESSION SCREENING (12+)] Future Scheduled Test 2021-11-20 FALLS RISK SCREENING [facility] 00:00:00 [code = FALLS RISK Medical C enter SCREENING] Future Scheduled Test 2021-11-20 Medicare IPPE (WELCOME [facility] 00:00:00 TO MEDICARE) [code = Medical Center Medicare IPPE (WELCOME TO MEDICARE)] Future Scheduled Test 2000 PNEUMOCOCCAL 65+ YRS [facility] 00:00:00 (1 - PCV) [code = Medical Ce nter PNEUMOCOCCAL 65+ YRS (1 - PCV)] Future Scheduled Test 1985 SHINGLES VACCINES ([address] [facility] 00:00:00 of 2) [code = SHINGLES Medic al Center VACCINES (1 of 2)] Future Scheduled Test 1954 DTAP/TDAP/TD VACCINES [facility] 00:00:00 (1 - Tdap) [code = Medical C enter DTAP/TDAP/TD VACCINES (1 - Tdap)] Future Scheduled Test 1935 COVID-19 VACCINE (#1) [facility] 00:00:00 [code = COVID-[address] VACCINE (#1)] Future Appointment 2022-08-22 Donis Vyas [facility] 11:00:00 [address] [facility] Medical C enter [address], [place] [address] Encounters Start End Encounter Admission Attending Care Care Encounter Source Date/Time Date/Time Type Type Clinicians Facility Department ID 2022-06-20 Outpatient [facility] [id number] [place] 11:40:57 [id number] [facility] 2022-06-16 Outpatient [facility] [id number] [place] 17:07:26 [id number] [facility] 2022-06-15 Outpatient [facility] [id number] [place] 16:25:36 [id number] [facility] 2022-05-18 Inpatient ADDY Ambrosio INTE.02 [id number] [facility] 14:24:00 Frank [id number] [facility] 2022-02-08 [facility] [id number] Common 16:02:01 [facility] 2021-12-15 Outpatient [facility] [id number] Common 12:01:20 [id number] [facility] 2021-12-15 Outpatient [facility] [id number] Common 11:54:02 [id number] [facility] 2022-08-22 2022-08-22 Outpatient MARKOS VYAS [facility] SLE [id number] [facility] 00:00:00 00:00:00 HOUSE 2022-08-18 2022-08-18 Outpatient MARKOS VYAS [facility] SLEH [id number] [facility] 09:33:59 23:59:00 HOUSE 2022-08-18 2022-08-18 [facility] Anthony [facility] [id number] 09:33:59 23:59:00 Encounter [facility] 2022-08-18 2022-08-18 Outpatient EL SLEH SLE [id number] [facility]H 09:45:07 09:45:07 2022-08-15 2022-08-15 Outpatient DEBORAH SHARPE [facility] [id number] [facility] 14:14:24 15:12:10 ISAIAS hernandez of Medicin e 2022-08-15 2022-08-15 Outpatient [facility] BCM [id number] [facility] 11:34:29 11:34:29 Ld e of Medicin e 2022-08-15 2022-08-15 [facility] [id number] 00:00[facility]00 00:00:[address] [facility] 2022-08-09 2022-08-09 [facility] [id number] 00:00:00 00:00:[address] [facility] 2022-08-03 2022-08-03 [facility] AnthonyJocelynDonis Angel [facility] [id number] [facility] 16:03:45 23:59:00 Encounter [facility] 2022-08-03 2022-08-03 Outpatient MARKOS VYAS SLEH SLEH [id number] SLEH 16:03:45 23:59:00 DONIS 2022-08-03 2022-08-03 Outpatient ANTHONY, [facility] SLE [id number] SLE 16:01:08 16:02:00 DONIS 2022-08-03 2022-08-[address] [facility] [id number] [facility] 16:01:08 16:02:00 Encounter 1, [facility] [address] Room [facility] 2022-08-03 2022-08-03 Outpatient ANTHONY, [facility] [id number] [facility] 13:15:55 15:15:43 DONIS Ld hernandez of Medicin e 2022-08-03 2022-08-03 Outside [facility], [facility] [id number] 00:00:00 00:00:[address] [facility] 2022-07-13 2022-07-13 Outpatient SINGH, [facility] [id number] [place] 14:00:00 14:00:00 [facility] 2022-06-13 2022-06-17 Inpatient [facility] [id number] Memoria 00:20:04 22:00:00 r Tomas 00 [facility] 2022-06-13 2022-06-17 Inpatient [facility] [id number] Memoria 00:20:04 22:00:00 r Tomas 00 [facility] 2022-06-13 2022-06-17 Inpatient E SHANEKA, SE [address] 01:02:00 17:00:00 CHAPIS [facility] 2022-06-12 2022-06-17 Outpatient [place], [place] [id number] 19:20:04 17:00:00 Chapis 00 2022-06-12 2022-06-12 Outpatient Gandenisse, SE SE [id number] 19:20:04 19:20:04 [facility]autam [facility] 2022-06-03 2022-06-03 [place] [id number] [facility] 07:17:00 07:17:00 0715 [facility]ica l Group 2022-05-20 2022-05-26 Inpatient EM Ariella Shaffer HCACL INTE.02 [id number] [facility] 14:05:00 14:06:00 93 [facility] 2022-05-20 2022-05-26 Inpatient EM Indy HCACL INTE.02 [id number] [facility] 14:05:00 14:06:00 Frank [id number] [facility] 2021-11-11 2021-11-11 Outpatient Canales_M DMG DMG [id number] [facility] 10:30:00 10:30:00 1223 Medica l Group 2021-05-17 2021-05-17 Outpatient Love-Mbayo VFP VFP [id number] Village 02:54:00 02:54:00 _A_AH [id number] Family Practic e 2021-02-22 2021-02-22 Outpatient Canales_M DMG DMG [id number] [facility] 11:38:00 11:38:00 0405 Medica l Group 2021-02-22 2021-02-22 Outpatient Hollins, DMG DMG [id number] 00:00:00 00:00:00 Iliana [id number] Mary [id number] 2021-02-19 2021-02-19 Outpatient Canales_M DMG DMG [id number] [facility] 11:15:00 11:15:00 0402 Medica l Group 2020-10-06 2020-10-06 Outpatient STLMLC STLMLC [id number] Common 00:00:00 00:00:00 [facility] 2020-09-29 2020-09-29 Outpatient STLMLC STLMLC [id number] Common 00:00:00 00:00:00 [facility] 2020-09-22 2020-09-22 Outpatient STLMLC STLMLC [id number] Common 00:00:00 00:00:00 [facility] 2020-09-10 2020-09-10 Outpatient STLMLC STLMLC [id number] Common 00:00:00 00:00:00 [facility] 2020-05-19 2020-05-19 Out[facility] [id number] Common 08:30:00 08:30:00 [facility] 2020-04-30 2020-04-30 Outpatient Love-Crow [facility] [address] [place] [address] 11:59:00 11:59:00 _A_AH [id number] Family Practic e 2020-04-20 2020-04-20 Outpatient [facility] [address] [place] [address] 06:26:00 06:26:00 _A_AH [id number] Family Practic e 2020-03-30 2020-03-30 Outpatient Love-Mbayo [facility] [address] [place] [address] 02:45:00 02:45:00 _A_AH [id number] Family Practic e 2020-02-24 2020-02-24 Outpatient [facility] [id number] Common 14:30:00 14:30:00 t [facility] 2020-02-18 2020-02-18 Rahcel [facility] [place] - [id number] illage 00:00:00 00:00:00 [facility] Fam ryan munguia MEDICAL OFFICE RECEPTIONIST: Medical - Practi c [address] [email or web address]_ [facility], [address] [address], [place] [address] , Ph. 2020-01-29 2020-01-29 Outpatient [facility] [id number] Common 14:19:00 14:19:00 t [facility] - [facility] 2020-01-28 2020-01-28 Outpatient [facility] [id number] Common 10:45:00 10:45:00 t [facility] Bone [facility] Joint - [facility] 2020-01-08 2020-01-08 Outpatient Love-Concepcióno [facility] [id number] 07:20:00 07:20:00 _A_AH [id number] Family Practic e 2019-06-12 2019-06-12 Outpatient [facility] [id number] Common 11:07:00 11:07:00 t [facility] [place] 2019-06-06 2019-06-06 Outpatient Lynne Bhatt [id number] Common 10:00:00 10:00:00 t [facility] [place] [place] [facility] 2019-05-20 2019-05-20 Outpatient Lynne Oakleybenny 26 [id number] Common 09:30:00 09:30:00 t [facility] [place] 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 *FINAL REPORT radiology location is Ultrasound guided preferred?->McNa right thoracentesis. ir Clinical History: Right pleural effusion. Modality: Ultrasound. Sedation: None. Batch Maker: Arin Landry PA-C Integrated Marketing Manager: None. Estimated Blood Loss: 1cc Specimen: 800 cc of clear yellow fluid. Technique: Informed consent was obtained. The risks of pain, bleeding, infection, lung collapse/pneumothora x, injury to adjacent structures, and adverse medication reactions were discussed with the patient. The patient's right hemithorax was scanned from the back, with the patient in a sitting position. After the largest fluid pocket area was marked, the skin was prepped and draped in the usual sterile manner. The area was anesthetized with 2% lidocaine, a 5 F one-step catheter was advanced into the pleural space under ultrasound guidance. After completion of drainage, the catheter was removed. There was no evidence of immediate complication. Post procedure chest x-ray demonstrated no pneumothorax. Impression:Successfu l and uncomplicated ultrasound guided right thoracentesis. Signed: Maurice Freedman MDReport Verified Date/Time: 08/18/2022 17:37:10 Reading Location: [facility] [id number] Ultrasound Reading Room , CHEST, 1 VIEW, 2022-08-18 Reason for NON DEPT 12:40:00 exam:->s/p right thoraShould [facility]->KELLY Ochoa [facility] : 1935 Sex: F *FINAL REPORT INDICATION: s/p right thora COMPARISON: None TECHNIQUE: Single frontal view of the chest. FINDINGS: Lines, tubes, and devices: None.Lungs and pleura: Mild interstitial opacities bilaterally, which may represent pulmonary edema or viral pneumonia. Small left pleural effusion. No pneumothorax.Heart and mediastinum: Normal heart size. Unremarkable mediastinal contours.Osseous structures: No acute abnormality.Other: Scattered atherosclerotic vascular calcifications. IMPRESSION:1.No pneumothorax identified.2.Mild interstitial opacities bilaterally, which may represent pulmonary edema or viral pneumonia. 3.Small left pleural effusion. Signed: Horace Adams MDReport Verified Date/Time: 08/18/2022 12:40:12 Reading Location: [address] Reading Room HROMBIN TIME/INR 2022-08-18 10:35:53 Test Item Value Reference Range Interpretation Comme nts PROTIME (BEAKER) (test code 15.2 seconds 11.9-14.2 H = 759) INR (BEAKER) (test code = 1.22 See_Comment [ Automated message] The [employer] Engine system which ge nerated this result transmit lavon reference range: <=5.90. The reference range was not u sed to interpret this result as normal/abnormal . RECOMMENDED COUMADIN/WARFARIN INR THERAPY RANGESSTANDARD DOSE: 2.0 - 3.0 Includes: PROPHYLAXIS for venous thrombosis, systemic embolization; TREATMENT for venous thrombosis and/or pulmonary embolus.HIGH RISK: Target INR is 2.5-3.5 for patients with mechanical heart valves.CBC W/PLT COUNT & AUTO [id number] 10:18:44 Test Item Value Reference Range Interpretation Comments WHITE BLOOD CELL COUNT (BEAKER) 5.8 K/ L 3.5-10.5 (test code = 775) RED BLOOD CELL COUNT (BEAKER) 2.66 M/ L 3.93-5.22 L (test code = 761) HEMOGLOBIN (BEAKER) (test code = 7.1 GM/DL 11.2-15.7 L 410) HEMATOCRIT (BEAKER) (test code = 22.9 % 34.1-44.9 L 411) MEAN CORPUSCULAR VOLUME (BEAKER) 86.1 fL 79.4-94.8 (test code = 753) MEAN CORPUSCULAR HEMOGLOBIN 26.7 pg 25.6-32.2 (BEAKER) (test code = 751) MEAN CORPUSCULAR HEMOGLOBIN CONC 31.0 GM/DL 32.2-35.5 L (BEAKER) (test code = 752) RED CELL DISTRIBUTION WIDTH 21.7 % 11.7-14.4 H (BEAKER) (test code = 412) PLATELET COUNT (BEAKER) (test 291 K/CU MM 150-450 code = 756) MEAN PLATELET VOLUME (BEAKER) 9.0 fL 9.4-12.3 L (test code = 754) NUCLEATED RED BLOOD CELLS 0 /100 WBC 0-0 (BEAKER) (test code = 413) NEUTROPHILS RELATIVE PERCENT 77 % (BEAKER) (test code = 429) LYMPHOCYTES RELATIVE PERCENT 15 % (BEAKER) (test code = 430) MONOCYTES RELATIVE PERCENT 7 % (BEAKER) (test code = 431) EOSINOPHILS RELATIVE PERCENT 0 % (BEAKER) (test code = 432) BASOPHILS RELATIVE PERCENT 0 % (BEAKER) (test code = 437) NEUTROPHILS ABSOLUTE COUNT 4.45 K/ L 1.56-6.13 (BEAKER) (test code = 670) LYMPHOCYTES ABSOLUTE COUNT 0.89 K/ L 1.18-3.74 L (BEAKER) (test code = 414) MONOCYTES ABSOLUTE COUNT (BEAKER) 0.41 K/ L 0.24-0.36 H (test code = 415) EOSINOPHILS ABSOLUTE COUNT 0.02 K/ L 0.04-0.36 L (BEAKER) (test code = 416) BASOPHILS ABSOLUTE COUNT (BEAKER) 0.02 K/ L 0.01-0.08 (test code = 417) IMMATURE GRANULOCYTES-RELATIVE 0 % 0-1 PERCENT (BEAKER) (test code = 2801) CT, [id number] 09:21:00Unlisted Reason for Exam - Click Yes and Enter Reason Below->YesUnlisted Reason for Exam->malignant neoplasm of both ovariesIs this for enterography?->NoWill this procedure require oral contras t?->Yes[facility]DO : 1935 Sex: FFINAL REPORT CT of the chest, abdomen and pelvis, with contrast Clinical History: Unlisted Reason for Exammalignant neoplasm of both ovaries Technique: CT of the chest, abdomen and pelvis is performed with intravenous contrast administration. This exam was performed accordingto our departmental dose optimization program which includes automated exposure control, adjustment of the mA and/or kV according to patient's size and/or use of iterative reconstructive technique. Comparison Film: None Discussion: Visualized thyroid gland is normal. No supraclavicular, axillary mediastinal or hilar lymphadenopathy. Heart and pericardium are unremarkable. There is a moderate- sized hiatal hernia. There is a small to moderate left effusion, and a moderate to large right effusion, withrelaxation atelectasis of both lower lobes. There is mild subpleural reticulation in the anterior right lung, compatible with postradiation change. Central airways are patent, no bronchiectasis, or bron chial wall thickening. There is subtle nodularity along the pleura in the fissures, likely to reflect metastatic deposits. No liver mass is identified. No biliary ductal dilatation, gallbladder is unremarkable. The spleen, pancreas, adrenal glands are normal. Kidneys demonstrate no mass, hydronephrosis, or radiopaque stone. No evidence of bowel obstruction, or abnormal bowel wall thickening. There ismild colonic diverticulosis. Multiple omental/peritoneal nodules are present, compatible with carcinomatosis. No significant ascites. In the pelvis, bladder appears normal. Uterus is atrophied. There is a conglomeration heterogeneously enhancing masses encasing the uterus, likely to reflect tumoral deposits or primary neoplasm, measuring approximately 3.7 x 5.5 x 8.7 cm. There is advanced vascular calcification. Bony structures demonstrate degenerative changes. No suspicious bony lesion is identified. That is made of mild right-sided breast skin thickening. Impression: Small to moderate left, and moderate to large right pleural effusions. Subtle nodularity along the parietal and fissures likely reflects metastatic disease. Omental/peritoneal carcinomatosis. There is a conglomeration of heterogeneously enhancing masses encasing the uterus, likely to reflect tumoral deposits or primary neoplasm. Johnson bpleural reticulation in the anterior right lung likely reflects post radiation change. There is mild degree of right breast skin thickening, correlate with oncologic history. Moderate-sized hiatal hernia. Signed: Nupur Cravenort Verified Date/Time: 08/04/2022 09:21:00 Reading Location: [facility] [id number] Consult Reading Room CT, CHEST, WITH IV [id number] 09:21:00Unlisted Reason for Exam - Click Yes and Enter Reason Below->YesUnlisted Reason for Exam->malignant neoplasm of both ovaries [facility] : 1935 Sex: FFINAL REPORT CT of the chest, abdomen and pelvis, with contrast Clinical History: Unlisted Reason for Exammalignant neoplasm of both ovaries Technique: CT of the chest, abdomen and pelvis is performed with intravenous contrast administration. This exam was performed accordingto our departmental dose optimization program which includes automated exposure control, adjustment of the mA and/or kV according to patient's size and/or use of iterative reconstructive technique. Comparison Film: None Discussion: Visualized thyroid gland is normal. No supraclavicular, axillary mediastinal or hilar lymphadenopathy. Heart and pericardium are unremarkable. There is a moderate- sized hiatal hernia. There is a small to moderate left effusion, and a moderate to large right effusion, withrelaxation atelectasis of both lower lobes. There is mild subpleural reticulation in the anterior right lung, compatible with postradiation change. Central airways are patent, no bronchiectasis, or bron chial wall thickening. There is subtle nodularity along the pleura in the fissures, likely to reflect metastatic deposits. No liver mass is identified. No biliary ductal dilatation, gallbladder is unremarkable. The spleen, pancreas, adrenal glands are normal. Kidneys demonstrate no mass, hydronephrosis, or radiopaque stone. No evidence of bowel obstruction, or abnormal bowel wall thickening. There ismild colonic diverticulosis. Multiple omental/peritoneal nodules are present, compatible with carcinomatosis. No significant ascites. In the pelvis, bladder appears normal. Uterus is atrophied. There is a conglomeration heterogeneously enhancing masses encasing the uterus, likely to reflect tumoral deposits or primary neoplasm, measuring approximately 3.7 x 5.5 x 8.7 cm. There is advanced vascular calcification. Bony structures demonstrate degenerative changes. No suspicious bony lesion is identified. That is made of mild right-sided breast skin thickening. Impression: Small to moderate left, and moderate to large right pleural effusions. Subtle nodularity along the parietal and fissures likely reflects metastatic disease. Omental/peritoneal carcinomatosis. There is a conglomeration of heterogeneously enhancing masses encasing the uterus, likely to reflect tumoral deposits or primary neoplasm. Johnson bpleural reticulation in the anterior right lung likely reflects post radiation change. There is mild degree of right breast skin thickening, correlate with oncologic history. Moderate-sized hiatal hernia. Signed: Nupur Cravenort Verified Date/Time: 08/04/2022 09:21:00 Reading Location: [facility] [id number] Consult Reading Room CHEM [id number] 12:01:00 Test Item Value Reference Range Interpretation Comments Glucose Lvl (test code = Glucose Lvl) 104 70-99 [facility]2022-07-29 12:01:00 Test Item Value Reference Range Interpretation Comments BUN (test code = BUN) 29 7-22 [facility]2022-07-29 12:01:00 Test Item Value Reference Range Interpretation Comments Creatinine Lvl (test code = Creatinine 0.98 0.50-1.40 Lvl) [facility]2022-07-29 12:01:00 Test Item Value Reference Range Interpretation Comments Sodium Lvl (test code = Sodium Lvl) 133 135-145 [facility]2022-07-29 12:01:00 Test Item Value Reference Range Interpretation Comments Potassium Lvl (test code = Potassium 2.7 3.5-5.1 Lvl) [facility]2022-07-29 12:01:00 Test Item Value Reference Range Interpretation Comments Chloride Lvl (test code = Chloride Lvl) 91 95-109 [place] 513142-07-29 12:01:00 Test Item Value Reference Range Interpretation Comments CO2 (test code = CO2) 33 24-32 [facility]2022-07-29 12:01:00 Test Item Value Reference Range Interpretation Comments AGAP (test code = AGAP) 11.7 10.0-20.0 [facility]2022-07-29 12:01:00 Test Item Value Reference Range Interpretation Comments Calcium Lvl (test code = Calcium Lvl) 7.9 8.5-10.5 [place] 513142-07-29 12:01:00 Test Item Value Reference Range Interpretation Comments eGFR (test code = eGFR) 56 [place] 513142-07-29 12:01:00 Test Item Value Reference Range Interpretation Comments Magnesium Lvl (test code = Magnesium 1.7 1.8-2.4 Lvl) [facility]2022-07-29 12:01:00 Test Item Value Reference Range Interpretation Comments Glucose Lvl (test code = Glucose Lvl) 104 70-99 [facility]2022-07-29 12:01:00 Test Item Value Reference Range Interpretation Comments BUN (test code = BUN) 29 7-22 [facility]2022-07-29 12:01:00 Test Item Value Reference Range Interpretation Comments Creatinine Lvl (test code = Creatinine 0.98 0.50-1.40 Lvl) [place] 513142-07-29 12:01:00 Test Item Value Reference Range Interpretation Comments Sodium Lvl (test code = Sodium Lvl) 133 135-145 [place] 513142-07-29 12:01:00 Test Item Value Reference Range Interpretation Comments Potassium Lvl (test code = Potassium 2.7 3.5-5.1 Lvl) [place] 513142-07-29 12:01:00 Test Item Value Reference Range Interpretation Comments Chloride Lvl (test code = Chloride Lvl) 91 95-109 [facility]2022-07-29 12:01:00 Test Item Value Reference Range Interpretation Comments CO2 (test code = CO2) 33 24-32 [place] 513142-07-29 12:01:00 Test Item Value Reference Range Interpretation Comments AGAP (test code = AGAP) 11.7 10.0-20.0 [place] 513142-07-29 12:01:00 Test Item Value Reference Range Interpretation Comments Calcium Lvl (test code = Calcium Lvl) 7.9 8.5-10.5 [place] 513142-07-29 12:01:00 Test Item Value Reference Range Interpretation Comments eGFR (test code = eGFR) 56 [place] 513142-07-29 12:01:00 Test Item Value Reference Range Interpretation Comments Magnesium Lvl (test code = Magnesium 1.7 1.8-2.4 Lvl) [place] 513142-07-27 09:07:00 Test Item Value Reference Range Interpretation Comments Glucose Lvl (test code = Glucose Lvl) 108 70-99 [place] 513142-07-27 09:07:00 Test Item Value Reference Range Interpretation Comments BUN (test code = BUN) 29 7-22 [place] 513142-07-27 09:07:00 Test Item Value Reference Range Interpretation Comments Creatinine Lvl (test code = Creatinine 0.94 0.50-1.40 Lvl) [place] 513142-07-27 09:07:00 Test Item Value Reference Range Interpretation Comments Sodium Lvl (test code = Sodium Lvl) 131 135-145 [place] 513142-07-27 09:07:00 Test Item Value Reference Range Interpretation Comments Potassium Lvl (test code = Potassium 3.2 3.5-5.1 Lvl) [place] 513142-07-27 09:07:00 Test Item Value Reference Range Interpretation Comments Chloride Lvl (test code = Chloride Lvl) 93 95-109 [place] 513142-07-27 09:07:00 Test Item Value Reference Range Interpretation Comments CO2 (test code = CO2) 31 24-32 [place] 513142-07-27 09:07:00 Test Item Value Reference Range Interpretation Comments Calcium Lvl (test code = Calcium Lvl) 8.0 8.5-10.5 [place] 513142-07-27 09:07:00 Test Item Value Reference Range Interpretation Comments Total Protein (test code = Total 5.7 6.4-8.4 Protein) [place] 513142-07-27 09:07:00 Test Item Value Reference Range Interpretation Comments Albumin Lvl (test code = Albumin Lvl) 2.6 3.5-5.0 [place] 513142-07-27 09:07:00 Test Item Value Reference Range Interpretation Comments ALT (test code = ALT) 18 See_Comment [Auto mated message] The system which ge nerated this result transmit lavon reference range : <=65. The reference range was not used to interpr et this result as blayne l/abnormal. [place] [address]-07-27 09:07:00 Test Item Value Reference Range Interpretation Comments AST (test code = AST) 28 See_Comment [Auto mated message] The system which ge nerated this result transmit lavon reference range : <=37. The reference range was not used to interpr et this result as blayne l/abnormal. [place] 513142-07-27 09:07:00 Test Item Value Reference Range Interpretation Comments Alk Phos (test code = Alk Phos) 44 39-136 [place] 513142-07-27 09:07:00 Test Item Value Reference Range Interpretation Comments Bili Total (test code = Bili Total) 1.1 0.2-1.3 [place] 513142-07-27 09:07:00 Test Item Value Reference Range Interpretation Comments AGAP (test code = AGAP) 10.2 10.0-20.0 [place] [address]-07-27 09:07:00 Test Item Value Reference Range Interpretation Comments B/C Ratio (test code = B/C Ratio) 31 1 6-25 [place] 513142-07-27 09:07:00 Test Item Value Reference Range Interpretation Comments Globulin (test code = Globulin) 3.1 2.7-4.2 [place] [address]-07-27 09:07:00 Test Item Value Reference Range Interpretation Comments A/G Ratio (test code = A/G Ratio) 0.8 1 0.7-1.6 [place] [address]-07-27 09:07:00 Test Item Value Reference Range Interpretation Comments eGFR (test code = eGFR) 59 [place] 265512-07-27 09:07:00 Test Item Value Reference Range Interpretation Comments WBC (test code = WBC) 7.2 3.7-10.4 [place] 265512-07-27 09:07:00 Test Item Value Reference Range Interpretation Comments RBC (test code = RBC) 3.06 4.20-5.40 [facility]xzshomLVIVWUGSJF0211-83-88 09:07:00 Test Item Value Reference Range Interpretation Comments Hgb (test code = Hgb) 7.4 12.0-16.0 [place] 265512-07-27 09:07:00 Test Item Value Reference Range Interpretation Comments Hct (test code = Hct) 22.5 36.0-48.0 [place] 265512-07-27 09:07:00 Test Item Value Reference Range Interpretation Comments MCV (test code = MCV) 73.6 80.0-98.0 [place] 265512-07-27 09:07:00 Test Item Value Reference Range Interpretation Comments MCH (test code = MCH) 24.2 pg 27.0-31.0 [facility] PointeDxbonuwJMKERWHSZD3318-95-81 09:07:00 Test Item Value Reference Range Interpretation Comments MCHC (test code = MCHC) 32.9 32.0-36.0 [facility]inteKwzigeuXHMXCFNCTT4606-73-24 09:07:00 Test Item Value Reference Range Interpretation Comments RDW (test code = RDW) 20.8 11.5-14.5 [place] 265512-07-27 09:07:00 Test Item Value Reference Range Interpretation Comments Platelet (test code = Platelet) 286 133-450 [facility] PointeKpubqewMEXSVQNOSD8800-93-62 09:07:00 Test Item Value Reference Range Interpretation Comments MPV (test code = MPV) 7.4 7.4-10.4 [place] 265512-07-27 09:07:00 Test Item Value Reference Range Interpretation Comments Segs (test code = Segs) 73.8 45.0-75.0 [place] 265512-07-27 09:07:00 Test Item Value Reference Range Interpretation Comments Lymphocytes (test code = Lymphocytes) 17.2 20.0-40.0 [place] 265512-07-27 09:07:00 Test Item Value Reference Range Interpretation Comments Monocytes (test code = Monocytes) 8.8 2.0-12.0 [place] 265512-07-27 09:07:00 Test Item Value Reference Range Interpretation Comments Neutrophils # (test code = Neutrophils 5.3 1.5-8.1 #) [facility] PointeTpozqdiFBAVZSDHAQ5222-07-50 09:07:00 Test Item Value Reference Range Interpretation Comments Lymphocytes # (test code = Lymphocytes 1.2 1.0-5.5 #) [place] 265512-07-27 09:07:00 Test Item Value Reference Range Interpretation Comments Monocytes # (test code 0.6 See_Comment [Aut omated message] The = Monocytes #) system which generated this result tra nsmitted reference range : <=0.8. The reference r hugo was not used to int erpret this result as normal/abnormal . [place] 265512-07-27 09:07:00 Test Item Value Reference Range Interpretation Comments Microcyte (test code = 1+ *ABN*(06/15/22 Microcyte) 4:07 AM) [facility]2022-07-27 09:07:00 Test Item Value Reference Range Interpretation Comments eGFR (test code = eGFR) 59 [facility]inteKjnywzzLIVNOKDXUX8276-76-43 09:07:00 Test Item Value Reference Range Interpretation Comments WBC (test code = WBC) 7.2 3.7-10.4 [place] 265512-07-27 09:07:00 Test Item Value Reference Range Interpretation Comments RBC (test code = RBC) 3.06 4.20-5.40 [place] 265512-07-27 09:07:00 Test Item Value Reference Range Interpretation Comments Hgb (test code = Hgb) 7.4 12.0-16.0 [place] 265512-07-27 09:07:00 Test Item Value Reference Range Interpretation Comments Hct (test code = Hct) 22.5 36.0-48.0 [place] 265512-07-27 09:07:00 Test Item Value Reference Range Interpretation Comments MCV (test code = MCV) 73.6 80.0-98.0 [place] [address]-07-27 09:07:00 Test Item Value Reference Range Interpretation Comments MCH (test code = MCH) 24.2 pg 27.0-31.0 [place] 265512-07-27 09:07:00 Test Item Value Reference Range Interpretation Comments MCHC (test code = MCHC) 32.9 32.0-36.0 [facility]intePhvhoudDPAVUSOUPG4899-63-57 09:07:00 Test Item Value Reference Range Interpretation Comments RDW (test code = RDW) 20.8 11.5-14.5 [facility] PointeAymbfqlUKJUBKOVCT6504-11-48 09:07:00 Test Item Value Reference Range Interpretation Comments Platelet (test code = Platelet) 286 133-450 [facility] PointeZhoyinrNJYAASORJC3377-08-66 09:07:00 Test Item Value Reference Range Interpretation Comments MPV (test code = MPV) 7.4 7.4-10.4 [facility] PointeKlclkggGVZRPLRVTF3901-94-15 09:07:00 Test Item Value Reference Range Interpretation Comments Segs (test code = Segs) 73.8 45.0-75.0 [facility] PointeVafmeabCLRYCTUDHJ2606-91-41 09:07:00 Test Item Value Reference Range Interpretation Comments Lymphocytes (test code = Lymphocytes) 17.2 20.0-40.0 [facility] PointeEvivmqyXUCEFWNACA8550-04-61 09:07:00 Test Item Value Reference Range Interpretation Comments Monocytes (test code = Monocytes) 8.8 2.0-12.0 [facility] PointeYtkcdpuPZSKMWFEAA7545-58-53 09:07:00 Test Item Value Reference Range Interpretation Comments Neutrophils # (test code = Neutrophils 5.3 1.5-8.1 #) [facility] PointeAetqntuEYAHJLGXRC3746-16-39 09:07:00 Test Item Value Reference Range Interpretation Comments Lymphocytes # (test code = Lymphocytes 1.2 1.0-5.5 #) [facility] PointeRvekwkwQFJIRJGGQV5222-85-57 09:07:00 Test Item Value Reference Range Interpretation Comments Monocytes # (test code 0.6 See_Comment [Aut omated message] The = Monocytes #) system which generated this result tra nsmitted reference range : <=0.8. The reference r hugo was not used to int erpret this result as normal/abnormal . [facility] PointeMmrzdqoNELHZMLRKJ3565-39-01 09:07:00 Test Item Value Reference Range Interpretation Comments Microcyte (test code = 1+ *ABN*(06/15/22 Microcyte) 4:07 AM) [facility]2022-07-27 09:07:00 Test Item Value Reference Range Interpretation Comments Glucose Lvl (test code = Glucose Lvl) 108 70-99 [place] 513142-07-27 09:07:00 Test Item Value Reference Range Interpretation Comments BUN (test code = BUN) 29 7-22 [place] 513142-07-27 09:07:00 Test Item Value Reference Range Interpretation Comments Creatinine Lvl (test code = Creatinine 0.94 0.50-1.40 Lvl) [place] 513142-07-27 09:07:00 Test Item Value Reference Range Interpretation Comments Sodium Lvl (test code = Sodium Lvl) 131 135-145 [place] 513142-07-27 09:07:00 Test Item Value Reference Range Interpretation Comments Potassium Lvl (test code = Potassium 3.2 3.5-5.1 Lvl) [place] 513142-07-27 09:07:00 Test Item Value Reference Range Interpretation Comments Chloride Lvl (test code = Chloride Lvl) 93 95-109 [place] 513142-07-27 09:07:00 Test Item Value Reference Range Interpretation Comments CO2 (test code = CO2) 31 24-32 [place] 513142-07-27 09:07:00 Test Item Value Reference Range Interpretation Comments Calcium Lvl (test code = Calcium Lvl) 8.0 8.5-10.5 [place] 513142-07-27 09:07:00 Test Item Value Reference Range Interpretation Comments Total Protein (test code = Total 5.7 6.4-8.4 Protein) [place] 513142-07-27 09:07:00 Test Item Value Reference Range Interpretation Comments Albumin Lvl (test code = Albumin Lvl) 2.6 3.5-5.0 [place] 513142-07-27 09:07:00 Test Item Value Reference Range Interpretation Comments ALT (test code = ALT) 18 See_Comment [Auto mated message] The system which ge nerated this result transmit lavon reference range : <=65. The reference range was not used to interpr et this result as blayne l/abnormal. [place] 513142-07-27 09:07:00 Test Item Value Reference Range Interpretation Comments AST (test code = AST) 28 See_Comment [Auto mated message] The system which ge nerated this result transmit lavon reference range : <=37. The reference range was not used to interpr et this result as blayne l/abnormal. [facility]2022-07-27 09:07:00 Test Item Value Reference Range Interpretation Comments Alk Phos (test code = Alk Phos) 44 39-136 [place] 513142-07-27 09:07:00 Test Item Value Reference Range Interpretation Comments Bili Total (test code = Bili Total) 1.1 0.2-1.3 [facility]2022-07-27 09:07:00 Test Item Value Reference Range Interpretation Comments AGAP (test code = AGAP) 10.2 10.0-20.0 [place] 513142-07-27 09:07:00 Test Item Value Reference Range Interpretation Comments B/C Ratio (test code = B/C Ratio) 31 1 6-25 [place] 513142-07-27 09:07:00 Test Item Value Reference Range Interpretation Comments Globulin (test code = Globulin) 3.1 2.7-4.2 [place] 513142-07-27 09:07:00 Test Item Value Reference Range Interpretation Comments A/G Ratio (test code = A/G Ratio) 0.8 1 0.7-1.6 [place] 513142-07-26 18:34:00 Test Item Value Reference Range Interpretation Comments Glucose Lvl (test code = Glucose Lvl) 110 70-99 [place] 513142-07-26 18:34:00 Test Item Value Reference Range Interpretation Comments BUN (test code = BUN) 28 7-22 [place] 513142-07-26 18:34:00 Test Item Value Reference Range Interpretation Comments Creatinine Lvl (test code = Creatinine 1.05 0.50-1.40 Lvl) [place] 513142-07-26 18:34:00 Test Item Value Reference Range Interpretation Comments Sodium Lvl (test code = Sodium Lvl) 132 135-145 [place] 513142-07-26 18:34:00 Test Item Value Reference Range Interpretation Comments Potassium Lvl (test code = Potassium 4.4 3.5-5.1 Lvl) [place] 513142-07-26 18:34:00 Test Item Value Reference Range Interpretation Comments Chloride Lvl (test code = Chloride Lvl) 96 95-109 [place] 513142-07-26 18:34:00 Test Item Value Reference Range Interpretation Comments CO2 (test code = CO2) 27 24-32 [place] 513142-07-26 18:34:00 Test Item Value Reference Range Interpretation Comments Calcium Lvl (test code = Calcium Lvl) 8.5 8.5-10.5 [place] 513142-07-26 18:34:00 Test Item Value Reference Range Interpretation Comments AGAP (test code = AGAP) 13.4 10.0-20.0 [place] 513142-07-26 18:34:00 Test Item Value Reference Range Interpretation Comments eGFR (test code = eGFR) 51 [place] 265512-07-26 18:34:00 Test Item Value Reference Range Interpretation Comments WBC (test code = WBC) 13.5 3.7-10.4 [place] 265512-07-26 18:34:00 Test Item Value Reference Range Interpretation Comments RBC (test code = RBC) 3.63 4.20-5.40 [place] 265512-07-26 18:34:00 Test Item Value Reference Range Interpretation Comments Hgb (test code = Hgb) 8.7 12.0-16.0 [place] [address]-07-26 18:34:00 Test Item Value Reference Range Interpretation Comments Hct (test code = Hct) 28.2 36.0-48.0 [place] [address]-07-26 18:34:00 Test Item Value Reference Range Interpretation Comments MCV (test code = MCV) 77.5 80.0-98.0 [place] [address]-07-26 18:34:00 Test Item Value Reference Range Interpretation Comments MCH (test code = MCH) 24.0 pg 27.0-31.0 [place] [address]-07-26 18:34:00 Test Item Value Reference Range Interpretation Comments MCHC (test code = MCHC) 30.9 32.0-36.0 [place] 265512-07-26 18:34:00 Test Item Value Reference Range Interpretation Comments RDW (test code = RDW) 21.2 11.5-14.5 [place] [address]-07-26 18:34:00 Test Item Value Reference Range Interpretation Comments Platelet (test code = Platelet) 324 133-450 [place] [address]-07-26 18:34:00 Test Item Value Reference Range Interpretation Comments MPV (test code = MPV) 7.6 7.4-10.4 [place] [address]-07-26 18:34:00 Test Item Value Reference Range Interpretation Comments Plt Morph (test code = Normal (06/14/22 1:34 Plt Morph) PM) [place] [address]-07-26 18:34:00 Test Item Value Reference Range Interpretation Comments Segs (test code = Segs) 89.0 45.0-75.0 [place] [address]-07-26 18:34:00 Test Item Value Reference Range Interpretation Comments Bands (test code = 3.0 See_Comment [Automat ed message] The Bands) system which ge nerated this result transmit lavon reference range : <=11.0. The reference r hugo was not used to interpr et this result as blayne l/abnormal. [place] [address]-07-26 18:34:00 Test Item Value Reference Range Interpretation Comments Lymphocytes (test code = Lymphocytes) 8.0 20.0-40.0 [place] [address]-07-26 18:34:00 Test Item Value Reference Range Interpretation Comments Monocytes (test code = Monocytes) 0.0 2.0-12.0 [place] [address]-07-26 18:34:00 Test Item Value Reference Range Interpretation Comments Neutrophils # (test code = Neutrophils 12.4 1.5-8.1 #) [place] [address]-07-26 18:34:00 Test Item Value Reference Range Interpretation Comments Lymphocytes # (test code = Lymphocytes 1.1 1.0-5.5 #) [place] [address]-07-26 18:34:00 Test Item Value Reference Range Interpretation Comments Monocytes # (test code 0.0 See_Comment [Aut omated message] The = Monocytes #) system which generated this result tra nsmitted reference range : <=0.8. The reference r hugo was not used to int erpret this result as normal/abnormal . [place] [address]-07-26 18:34:00 Test Item Value Reference Range Interpretation Comments Hypochrom (test code = 1+ (06/14/22 1:34 PM) Hypochrom) [place] 513142-07-26 18:34:00 Test Item Value Reference Range Interpretation Comments Glucose Lvl (test code = Glucose Lvl) 110 70-99 [place] 513142-07-26 18:34:00 Test Item Value Reference Range Interpretation Comments BUN (test code = BUN) 28 - [place] 513142-07-26 18:34:00 Test Item Value Reference Range Interpretation Comments Creatinine Lvl (test code = Creatinine 1.05 0.50-1.40 Lvl) [place] 513142-07-26 18:34:00 Test Item Value Reference Range Interpretation Comments Sodium Lvl (test code = Sodium Lvl) 132 135-145 [place] 513142-07-26 18:34:00 Test Item Value Reference Range Interpretation Comments Potassium Lvl (test code = Potassium 4.4 3.5-5.1 Lvl) [place] 513142-07-26 18:34:00 Test Item Value Reference Range Interpretation Comments Chloride Lvl (test code = Chloride Lvl) 96 95-109 [place] 513142-07-26 18:34:00 Test Item Value Reference Range Interpretation Comments CO2 (test code = CO2) 27 24-32 [place] 513142-07-26 18:34:00 Test Item Value Reference Range Interpretation Comments Calcium Lvl (test code = Calcium Lvl) 8.5 8.5-10.5 [place] 513142-07-26 18:34:00 Test Item Value Reference Range Interpretation Comments AGAP (test code = AGAP) 13.4 10.0-20.0 [place] 513142-07-26 18:34:00 Test Item Value Reference Range Interpretation Comments eGFR (test code = eGFR) 51 [place] 265512-07-26 18:34:00 Test Item Value Reference Range Interpretation Comments WBC (test code = WBC) 13.5 3.7-10.4 [place] 265512-07-26 18:34:00 Test Item Value Reference Range Interpretation Comments RBC (test code = RBC) 3.63 4.20-5.40 [place] 265512-07-26 18:34:00 Test Item Value Reference Range Interpretation Comments Hgb (test code = Hgb) 8.7 12.0-16.0 [place] [id number] 18:34:00 Test Item Value Reference Range Interpretation Comments Hct (test code = Hct) 28.2 36.0-48.0 [place] 265512-07-26 18:34:00 Test Item Value Reference Range Interpretation Comments MCV (test code = MCV) 77.5 80.0-98.0 [place] 265512-07-26 18:34:00 Test Item Value Reference Range Interpretation Comments MCH (test code = MCH) 24.0 pg 27.0-31.0 [facility]inteOvfpqngTHEXKQWUUW9398-56-98 18:34:00 Test Item Value Reference Range Interpretation Comments MCHC (test code = MCHC) 30.9 32.0-36.0 [place] 265512-07-26 18:34:00 Test Item Value Reference Range Interpretation Comments RDW (test code = RDW) 21.2 11.5-14.5 [place] 265512-07-26 18:34:00 Test Item Value Reference Range Interpretation Comments Platelet (test code = Platelet) 324 133-450 [facility] PointeJhszvktRQTQBDBWTZ9216-25-54 18:34:00 Test Item Value Reference Range Interpretation Comments MPV (test code = MPV) 7.6 7.4-10.4 [facility] PointeHizvgahNSJTKUWBKK4730-90-14 18:34:00 Test Item Value Reference Range Interpretation Comments Plt Morph (test code = Normal (06/14/22 1:34 Plt Morph) PM) [facility] PointePpemaieCHTVWERDFE3919-15-35 18:34:00 Test Item Value Reference Range Interpretation Comments Segs (test code = Segs) 89.0 45.0-75.0 [place] 265512-07-26 18:34:00 Test Item Value Reference Range Interpretation Comments Bands (test code = 3.0 See_Comment [Automat ed message] The Bands) system which ge nerated this result transmit lavon reference range : <=11.0. The reference r hugo was not used to interpr et this result as blayne l/abnormal. [place] 265512-07-26 18:34:00 Test Item Value Reference Range Interpretation Comments Lymphocytes (test code = Lymphocytes) 8.0 20.0-40.0 [place] 265512-07-26 18:34:00 Test Item Value Reference Range Interpretation Comments Monocytes (test code = Monocytes) 0.0 2.0-12.0 [place] 265512-07-26 18:34:00 Test Item Value Reference Range Interpretation Comments Neutrophils # (test code = Neutrophils 12.4 1.5-8.1 #) [facility] PointeEkmlkvfFVBUEWVINQ6409-24-30 18:34:00 Test Item Value Reference Range Interpretation Comments Lymphocytes # (test code = Lymphocytes 1.1 1.0-5.5 #) [place] 265512-07-26 18:34:00 Test Item Value Reference Range Interpretation Comments Monocytes # (test code 0.0 See_Comment [Aut omated message] The = Monocytes #) system which generated this result tra nsmitted reference range : <=0.8. The reference r hugo was not used to int erpret this result as normal/abnormal . [facility] PointeTmndejiHFAGPMQUFS0255-38-27 18:34:00 Test Item Value Reference Range Interpretation Comments Hypochrom (test code = 1+ (06/14/22 1:34 PM) Hypochrom) [facility]2022-07-25 15:00:00 Test Item Value Reference Range Interpretation Comments Albumin BF (test code = Albumin BF) 0.6 [place] 961352-07-25 15:00:00 Test Item Value Reference Range Interpretation Comments Alb BF Type (test Pleural *NA*(06/13/22 code = Alb BF Type) 10:00 AM) [facility]2022-07-25 15:00:00 Test Item Value Reference Range Interpretation Comments CellCnt BF Type (test Thoracen (06/13/22 10:00 code = CellCnt BF AM) Type) [place] 961352-07-25 15:00:00 Test Item Value Reference Range Interpretation Comments Color BF (test code = Yellow (06/13/22 10:00 Color BF) AM) [facility]2022-07-25 15:00:00 Test Item Value Reference Range Interpretation Comments Clarity BF (test code = Clear (06/13/22 10:00 Clarity BF) AM) [facility]2022-07-25 15:00:00 Test Item Value Reference Range Interpretation Comments Supernat BF (test code = Yellow *ABN*(06/13/22 Supernat BF) 10:00 AM) [facility]2022-07-25 15:00:00 Test Item Value Reference Range Interpretation Comments Nucleated Cells BF (test code = 273 Nucleated Cells BF) [facility]2022-07-25 15:00:00 Test Item Value Reference Range Interpretation Comments RBC BF (test code = RBC BF) 419 [facility]2022-07-25 15:00:00 Test Item Value Reference Range Interpretation Comments Neutrophils BF (test code = Neutrophils 10 BF) [facility]2022-07-25 15:00:00 Test Item Value Reference Range Interpretation Comments Lymph BF (test code = Lymph BF) 36 [facility]2022-07-25 15:00:00 Test Item Value Reference Range Interpretation Comments Macrophage BF (test code = Macrophage 48 BF) [facility]2022-07-25 15:00:00 Test Item Value Reference Range Interpretation Comments Meso BF (test code = Meso BF) 6 [facility]2022-07-25 15:00:00 Test Item Value Reference Range Interpretation Comments Comment BF (test Differential confirmed. code = Comment BF) mesothlial cells and mixed inflammation. performed by Dr. Rosendo Chapa [facility]2022-07-25 15:00:00 Test Item Value Reference Range Interpretation Comments Glucose BF (test code = Glucose BF) 154 [facility]2022-07-25 15:00:00 Test Item Value Reference Range Interpretation Comments Gluc BF Type (test Pleural *NA*(06/13/22 code = Gluc BF Type) 10:00 AM) [facility]2022-07-25 15:00:00 Test Item Value Reference Range Interpretation Comments LDH BF (test code = LDH BF) 74 [facility]2022-07-25 15:00:00 Test Item Value Reference Range Interpretation Comments LDH BF Type (test Pleural *NA*(06/13/22 code = LDH BF Type) 10:00 AM) [facility]2022-07-25 15:00:00 Test Item Value Reference Range Interpretation Comments pH BF Type (test code Pleural (06/13/22 10:00 = pH BF Type) AM) [facility] [id number] 15:00:00 Test Item Value Reference Range Interpretation Comments pH BF (test code = pH BF) 8.00 1 [facility] [id number] 15:00:00 Test Item Value Reference Range Interpretation Comments Protein BF (test code = Protein BF) 1.0 [facility] [id number] 15:00:00 Test Item Value Reference Range Interpretation Comments Prot BF Type (test Pleural *NA*(06/13/22 code = Prot BF Type) 10:00 AM) [facility] [id number] 15:00:00 Test Item Value Reference Range Interpretation Comments Gram Stain Report Few WBC's No Organisms (test code = Gram Seen Stain Report) [facility] HospitalCulture: Aspirate/Body Fluid/[id number] 15:00:00 Test Item Value Reference Range Interpretation Comments Culture: Aspirate/Body Fluid/Tissue No Growth (test code = Culture: Aspirate/Body Fluid/Tissue) [facility]2022-07-25 15:00:00 Test Item Value Reference Range Interpretation Comments Albumin BF (test code = Albumin BF) 0.6 [facility]2022-07-25 15:00:00 Test Item Value Reference Range Interpretation Comments Alb BF Type (test Pleural *NA*(06/13/22 code = Alb BF Type) 10:00 AM) [facility]2022-07-25 15:00:00 Test Item Value Reference Range Interpretation Comments CellCnt BF Type (test Thoracen (06/13/22 10:00 code = CellCnt BF AM) Type) [facility]2022-07-25 15:00:00 Test Item Value Reference Range Interpretation Comments Color BF (test code = Yellow (06/13/22 10:00 Color BF) AM) [facility]2022-07-25 15:00:00 Test Item Value Reference Range Interpretation Comments Clarity BF (test code = Clear (06/13/22 10:00 Clarity BF) AM) [facility]2022-07-25 15:00:00 Test Item Value Reference Range Interpretation Comments Supernat BF (test code = Yellow *ABN*(06/13/22 Supernat BF) 10:00 AM) [facility]2022-07-25 15:00:00 Test Item Value Reference Range Interpretation Comments Nucleated Cells BF (test code = 273 Nucleated Cells BF) [facility]2022-07-25 15:00:00 Test Item Value Reference Range Interpretation Comments RBC BF (test code = RBC BF) 419 [facility]2022-07-25 15:00:00 Test Item Value Reference Range Interpretation Comments Neutrophils BF (test code = Neutrophils 10 BF) [facility]2022-07-25 15:00:00 Test Item Value Reference Range Interpretation Comments Lymph BF (test code = Lymph BF) 36 [facility]2022-07-25 15:00:00 Test Item Value Reference Range Interpretation Comments Macrophage BF (test code = Macrophage 48 BF) [facility]2022-07-25 15:00:00 Test Item Value Reference Range Interpretation Comments Meso BF (test code = Meso BF) 6 [facility]2022-07-25 15:00:00 Test Item Value Reference Range Interpretation Comments Comment BF (test Differential confirmed. code = Comment BF) mesothlial cells and mixed inflammation. performed by Dr. Rosendo Chapa [facility]2022-07-25 15:00:00 Test Item Value Reference Range Interpretation Comments Glucose BF (test code = Glucose BF) 154 [facility]2022-07-25 15:00:00 Test Item Value Reference Range Interpretation Comments Gluc BF Type (test Pleural *NA*(06/13/22 code = Gluc BF Type) 10:00 AM) [facility]2022-07-25 15:00:00 Test Item Value Reference Range Interpretation Comments LDH BF (test code = LDH BF) 74 [facility]2022-07-25 15:00:00 Test Item Value Reference Range Interpretation Comments LDH BF Type (test Pleural *NA*(06/13/22 code = LDH BF Type) 10:00 AM) [facility]2022-07-25 15:00:00 Test Item Value Reference Range Interpretation Comments pH BF Type (test code Pleural (06/13/22 10:00 = pH BF Type) AM) [facility]2022-07-25 15:00:00 Test Item Value Reference Range Interpretation Comments pH BF (test code = pH BF) 8.00 1 [facility] [id number] 15:00:00 Test Item Value Reference Range Interpretation Comments Protein BF (test code = Protein BF) 1.0 [facility] [id number] 15:00:00 Test Item Value Reference Range Interpretation Comments Prot BF Type (test Pleural *NA*(06/13/22 code = Prot BF Type) 10:00 AM) [facility] CenterSmit OvensGram Stain [id number] 15:00:00 Test Item Value Reference Range Interpretation Comments Gram Stain Report Few WBC's No Organisms (test code = Gram Seen Stain Report) [facility] CenterannCulture: Aspirate/Body Fluid/Urnmhr1480-06-28 15:00:00 Test Item Value Reference Range Interpretation Comments Culture: Aspirate/Body Fluid/Tissue No Growth (test code = Culture: Aspirate/Body Fluid/Tissue) [facility] CenterDNA DynamicsAC [id number] 08:03:00 Test Item Value Reference Range Interpretation Comments HS Troponin I 1 Hr (test code = HS 50 Troponin I 1 Hr) [facility] [employer]AC [id number] 08:03:00 Test Item Value Reference Range Interpretation Comments HS Troponin I 0 to 1 See Note 5(06/13/22 Hour Delta (test code = 3:03 AM) HS Troponin I 0 to 1 Hour Delta) [facility] [employer] [id number] 08:03:00 Test Item Value Reference Range Interpretation Comments Glucose Lvl (test code = Glucose Lvl) 142 70-99 [facility] [employer] [id number] 08:03:00 Test Item Value Reference Range Interpretation Comments BUN (test code = BUN) 21 06-10 [facility] [employer] [id number] 08:03:00 Test Item Value Reference Range Interpretation Comments Creatinine Lvl (test code = Creatinine 0.84 0.50-1.40 Lvl) [facility] [employer] [id number] 08:03:00 Test Item Value Reference Range Interpretation Comments Sodium Lvl (test code = Sodium Lvl) 133 135-145 [facility] [employer] [id number] 08:03:00 Test Item Value Reference Range Interpretation Comments Potassium Lvl (test code = Potassium 4.4 3.5-5.1 Lvl) [facility] [employer] [id number] 08:03:00 Test Item Value Reference Range Interpretation Comments Chloride Lvl (test code = Chloride Lvl) 98 95-109 [place] 513142-07-25 08:03:00 Test Item Value Reference Range Interpretation Comments CO2 (test code = CO2) 25 24-32 [place] [address]-07-25 08:03:00 Test Item Value Reference Range Interpretation Comments AGAP (test code = AGAP) 14.4 10.0-20.0 [place] 513142-07-25 08:03:00 Test Item Value Reference Range Interpretation Comments Calcium Lvl (test code = Calcium Lvl) 9.1 8.5-10.5 [place] 513142-07-25 08:03:00 Test Item Value Reference Range Interpretation Comments B/C Ratio (test code = B/C Ratio) 25 1 6-25 [place] [address]-07-25 08:03:00 Test Item Value Reference Range Interpretation Comments Total Protein (test code = Total 6.7 6.4-8.4 Protein) [place] 513142-07-25 08:03:00 Test Item Value Reference Range Interpretation Comments Albumin Lvl (test code = Albumin Lvl) 3.2 3.5-5.0 [place] [address]-07-25 08:03:00 Test Item Value Reference Range Interpretation Comments Globulin (test code = Globulin) 3.5 2.7-4.2 [place] [address]-07-25 08:03:00 Test Item Value Reference Range Interpretation Comments A/G Ratio (test code = A/G Ratio) 0.9 1 0.7-1.6 [place] [address]-07-25 08:03:00 Test Item Value Reference Range Interpretation Comments ALT (test code = ALT) 19 See_Comment [Auto mated message] The system which ge nerated this result transmit lavon reference range : <=65. The reference range was not used to interpr et this result as blayne l/abnormal. [place] [address]-07-25 08:03:00 Test Item Value Reference Range Interpretation Comments AST (test code = AST) 26 See_Comment [Auto mated message] The system which ge nerated this result transmit lavon reference range : <=37. The reference range was not used to interpr et this result as blayne l/abnormal. [facility]Will[facility] [id number] 08:03:00 Test Item Value Reference Range Interpretation Comments Alk Phos (test code = Alk Phos) 56 39-136 [place] 513142-07-25 08:03:00 Test Item Value Reference Range Interpretation Comments Bili Total (test code = Bili Total) 1.0 0.2-1.3 [place] 513142-07-25 08:03:00 Test Item Value Reference Range Interpretation Comments eGFR (test code = eGFR) 67 [place] 513142-07-25 08:03:00 Test Item Value Reference Range Interpretation Comments Magnesium Lvl (test code = Magnesium 1.9 1.8-2.4 Lvl) [place] 513142-07-25 08:03:00 Test Item Value Reference Range Interpretation Comments Procalcitonin Lvl (test no gt See_Comment [Au tomated message] code = Procalcitonin Lvl) e system which generated this result transmitted ref erence range: <=0.10. The reference range was not used to interpr et this result as normal/abnormal . [place] 513142-07-25 08:03:00 Test Item Value Reference Range Interpretation Comments LDH (test code = LDH) 354 98-192 [facility] PointeCpkvpcgZLYWCJQPZB7063-03-54 08:03:00 Test Item Value Reference Range Interpretation Comments WBC (test code = WBC) 7.5 3.7-10.4 [place] 265512-07-25 08:03:00 Test Item Value Reference Range Interpretation Comments RBC (test code = RBC) 3.44 4.20-5.40 [place] 265512-07-25 08:03:00 Test Item Value Reference Range Interpretation Comments Hgb (test code = Hgb) 8.3 12.0-16.0 [place] [address]-07-25 08:03:00 Test Item Value Reference Range Interpretation Comments Hct (test code = Hct) 26.2 36.0-48.0 [place] [address]-07-25 08:03:00 Test Item Value Reference Range Interpretation Comments MCV (test code = MCV) 76.1 80.0-98.0 [place] [address]-07-25 08:03:00 Test Item Value Reference Range Interpretation Comments MCH (test code = MCH) 24.0 pg 27.0-31.0 [place] 265512-07-25 08:03:00 Test Item Value Reference Range Interpretation Comments MCHC (test code = MCHC) 31.6 32.0-36.0 [place] 265512-07-25 08:03:00 Test Item Value Reference Range Interpretation Comments RDW (test code = RDW) 20.9 11.5-14.5 [place] 265512-07-25 08:03:00 Test Item Value Reference Range Interpretation Comments Platelet (test code = Platelet) 289 133-450 [facility] PointeZzvyhzcIPYLCJXJJI7404-24-54 08:03:00 Test Item Value Reference Range Interpretation Comments MPV (test code = MPV) 7.5 7.4-10.4 [place] 265512-07-25 08:03:00 Test Item Value Reference Range Interpretation Comments Segs (test code = Segs) 94.0 45.0-75.0 [place] 265512-07-25 08:03:00 Test Item Value Reference Range Interpretation Comments Lymphocytes (test code = Lymphocytes) 4.3 20.0-40.0 [place] 265512-07-25 08:03:00 Test Item Value Reference Range Interpretation Comments Monocytes (test code = Monocytes) 1.6 2.0-12.0 [place] 265512-07-25 08:03:00 Test Item Value Reference Range Interpretation Comments Basophils (test code = 0.1 See_Comment [Aut omated message] The Basophils) system which ge nerated this result tra nsmitted reference range : <=1.0. The reference r hugo was not used to int erpret this result as normal/abnormal . [facility] PointeGklbmesHZLMPFNVDT0549-62-14 08:03:00 Test Item Value Reference Range Interpretation Comments Neutrophils # (test code = Neutrophils 7.0 1.5-8.1 #) [facility] P[id number] 08:03:00 Test Item Value Reference Range Interpretation Comments Lymphocytes # (test code = Lymphocytes 0.3 1.0-5.5 #) [place] 265512-07-25 08:03:00 Test Item Value Reference Range Interpretation Comments Monocytes # (test code 0.1 See_Comment [Aut omated message] The = Monocytes #) system which generated this result tra nsmitted reference range : <=0.8. The reference r hugo was not used to int erpret this result as normal/abnormal . [facility]TxjdqrgRLIMTXMWQE5698-14-45 08:03:00 Test Item Value Reference Range Interpretation Comments Microcyte (test code = 1+ *ABN*(06/13/22 Microcyte) 3:03 AM) [facility] HospitalServerEnginesG[facility] [id number] 08:03:00 Test Item Value Reference Range Interpretation Comments HS Troponin I 1 Hr (test code = HS 50 Troponin I 1 Hr) [facility] [id number] 08:03:00 Test Item Value Reference Range Interpretation Comments HS Troponin I 0 to 1 See Note 5(06/13/22 Hour Delta (test code = 3:03 AM) HS Troponin I 0 to 1 Hour Delta) [facility]ITH [id number] 08:03:00 Test Item Value Reference Range Interpretation Comments Glucose Lvl (test code = Glucose Lvl) 142 70-99 [facility]PENRITH [id number] 08:03:00 Test Item Value Reference Range Interpretation Comments BUN (test code = BUN) 21 7-22 [facility] [id number] 08:03:00 Test Item Value Reference Range Interpretation Comments Creatinine Lvl (test code = Creatinine 0.84 0.50-1.40 Lvl) [facility] [id number] 08:03:00 Test Item Value Reference Range Interpretation Comments Sodium Lvl (test code = Sodium Lvl) 133 135-145 [facility]PEN[facility]ITH [id number] 08:03:00 Test Item Value Reference Range Interpretation Comments Potassium Lvl (test code = Potassium 4.4 3.5-5.1 Lvl) [facility]ITH [id number] 08:03:00 Test Item Value Reference Range Interpretation Comments Chloride Lvl (test code = Chloride Lvl) 98 95-109 [facility] [id number] 08:03:00 Test Item Value Reference Range Interpretation Comments CO2 (test code = CO2) 25 24-32 [facility] [id number] 08:03:00 Test Item Value Reference Range Interpretation Comments AGAP (test code = AGAP) 14.4 10.0-20.0 [facility] CenterSmit OvensBENJAMIN VILLE [id number] 08:03:00 Test Item Value Reference Range Interpretation Comments Calcium Lvl (test code = Calcium Lvl) 9.1 8.5-10.5 [place] 513142-07-25 08:03:00 Test Item Value Reference Range Interpretation Comments B/C Ratio (test code = B/C Ratio) 25 1 6-25 [facility] CenterSmit OvensBENJAMIN [place]LE [id number] 08:03:00 Test Item Value Reference Range Interpretation Comments Total Protein (test code = Total 6.7 6.4-8.4 Protein) [place] 513142-07-25 08:03:00 Test Item Value Reference Range Interpretation Comments Albumin Lvl (test code = Albumin Lvl) 3.2 3.5-5.0 [place] 513142-07-25 08:03:00 Test Item Value Reference Range Interpretation Comments Globulin (test code = Globulin) 3.5 2.7-4.2 [facility] CenterPENRITH [id number] 08:03:00 Test Item Value Reference Range Interpretation Comments A/G Ratio (test code = A/G Ratio) 0.9 1 0.7-1.6 [facility]PEN[facility]ITH [id number] 08:03:00 Test Item Value Reference Range Interpretation Comments ALT (test code = ALT) 19 See_Comment [Auto mated message] The system which ge nerated this result transmit lavon reference range : <=65. The reference range was not used to interpr et this result as blayne l/abnormal. [facility] [id number] 08:03:00 Test Item Value Reference Range Interpretation Comments AST (test code = AST) 26 See_Comment [Auto mated message] The system which ge nerated this result transmit lavon reference range : <=37. The reference range was not used to interpr et this result as blayne l/abnormal. [facility]ITH [id number] 08:03:00 Test Item Value Reference Range Interpretation Comments Alk Phos (test code = Alk Phos) 56 39-136 [facility] [id number] 08:03:00 Test Item Value Reference Range Interpretation Comments Bili Total (test code = Bili Total) 1.0 0.2-1.3 [place] 513142-07-25 08:03:00 Test Item Value Reference Range Interpretation Comments eGFR (test code = eGFR) 67 [place] 513142-07-25 08:03:00 Test Item Value Reference Range Interpretation Comments Magnesium Lvl (test code = Magnesium 1.9 1.8-2.4 Lvl) [place] 513142-07-25 08:03:00 Test Item Value Reference Range Interpretation Comments Procalcitonin Lvl (test no gt See_Comment [Au tomated message] code = Procalcitonin Lvl) e system which generated this result transmitted ref erence range: <=0.10. The reference range was not used to interpr et this result as normal/abnormal . [place] 513142-07-25 08:03:00 Test Item Value Reference Range Interpretation Comments LDH (test code = LDH) 354 98-192 [place] 265512-07-25 08:03:00 Test Item Value Reference Range Interpretation Comments WBC (test code = WBC) 7.5 3.7-10.4 [place] [address]-07-25 08:03:00 Test Item Value Reference Range Interpretation Comments RBC (test code = RBC) 3.44 4.20-5.40 [place] 265512-07-25 08:03:00 Test Item Value Reference Range Interpretation Comments Hgb (test code = Hgb) 8.3 12.0-16.0 [place] [address]-07-25 08:03:00 Test Item Value Reference Range Interpretation Comments Hct (test code = Hct) 26.2 36.0-48.0 [place] 265512-07-25 08:03:00 Test Item Value Reference Range Interpretation Comments MCV (test code = MCV) 76.1 80.0-98.0 [place] [address]-07-25 08:03:00 Test Item Value Reference Range Interpretation Comments MCH (test code = MCH) 24.0 pg 27.0-31.0 [place] [address]-07-25 08:03:00 Test Item Value Reference Range Interpretation Comments MCHC (test code = MCHC) 31.6 32.0-36.0 [place] [address]-07-25 08:03:00 Test Item Value Reference Range Interpretation Comments RDW (test code = RDW) 20.9 11.5-14.5 [place] 265512-07-25 08:03:00 Test Item Value Reference Range Interpretation Comments Platelet (test code = Platelet) 289 133-450 [place] 265512-07-25 08:03:00 Test Item Value Reference Range Interpretation Comments MPV (test code = MPV) 7.5 7.4-10.4 [place] 265512-07-25 08:03:00 Test Item Value Reference Range Interpretation Comments Segs (test code = Segs) 94.0 45.0-75.0 [place] 265512-07-25 08:03:00 Test Item Value Reference Range Interpretation Comments Lymphocytes (test code = Lymphocytes) 4.3 20.0-40.0 [place] 265512-07-25 08:03:00 Test Item Value Reference Range Interpretation Comments Monocytes (test code = Monocytes) 1.6 2.0-12.0 [place] 265512-07-25 08:03:00 Test Item Value Reference Range Interpretation Comments Basophils (test code = 0.1 See_Comment [Aut omated message] The Basophils) system which ge nerated this result tra nsmitted reference range : <=1.0. The reference r hugo was not used to int erpret this result as normal/abnormal . [facility]inteQcscixmFVRJJVPWWF1942-69-41 08:03:00 Test Item Value Reference Range Interpretation Comments Neutrophils # (test code = Neutrophils 7.0 1.5-8.1 #) [facility] PointeOvstxafMRIAFSHSRF0581-51-91 08:03:00 Test Item Value Reference Range Interpretation Comments Lymphocytes # (test code = Lymphocytes 0.3 1.0-5.5 #) [place] [address]-07-25 08:03:00 Test Item Value Reference Range Interpretation Comments Monocytes # (test code 0.1 See_Comment [Aut omated message] The = Monocytes #) system which generated this result tra nsmitted reference range : <=0.8. The reference r hugo was not used to int erpret this result as normal/abnormal . [place] 265512-07-25 08:03:00 Test Item Value Reference Range Interpretation Comments Microcyte (test code = 1+ *ABN*(06/13/22 Microcyte) 3:03 AM) [facility] [id number] 07:27:00 Test Item Value Reference Range Interpretation Comments HS Troponin I Baseline (test code = HS 46 Troponin I Baseline) [facility] [id number] 07:27:00 Test Item Value Reference Range Interpretation Comments HS Troponin I Baseline (test code = HS 46 Troponin I Baseline) [facility] [id number] 04:26:00 Test Item Value Reference Range Interpretation Comments HS Troponin I (test code = HS Troponin 46 I) [facility]2022-07[facility]25 04:26:00 Test Item Value Reference Range Interpretation Comments BNP (test code = BNP) 851 [facility] CenterWviancxVUKMYNPOLK9356-15-69 04:26:00 Test Item Value Reference Range Interpretation Comments Coronavirus (COVID-19) Not Detected (06/12/22 DEJUAN (test code = 11:26 PM) Coronavirus (COVID-19) DEJUAN) [facility]2022-[facility] 04:26:00 Test Item Value Reference Range Interpretation Comments HS Troponin I (test code = HS Troponin 46 I) [facility]2022-[facility]-25 04:26:00 Test Item Value Reference Range Interpretation Comments BNP (test code = BNP) 851 [facility] CenterBjswomwEUWPIOGTIN2433-68-74 04:26:00 Test Item Value Reference Range Interpretation Comments Coronavirus (COVID-19) Not Detected (06/12/22 DEJUAN (test code = 11:26 PM) Coronavirus (COVID-19) DEJUAN) [facility]2022-[facility]-25 02:20:00 Test Item Value Reference Range Interpretation Comments HS Troponin I (test code = HS Troponin 52 I) [facility] [employer]2022-07-25 02:20:00 Test Item Value Reference Range Interpretation Comments Glucose Lvl (test code = Glucose Lvl) 103 70-99 [facility] [employer] [id number] 02:20:00 Test Item Value Reference Range Interpretation Comments BUN (test code = BUN) 22 7- [facility] [employer] [id number] 02:20:00 Test Item Value Reference Range Interpretation Comments Creatinine Lvl (test code = Creatinine 0.90 0.50-1.40 Lvl) [place] 513142-07-25 02:20:00 Test Item Value Reference Range Interpretation Comments Sodium Lvl (test code = Sodium Lvl) 131 135-145 [place] 513142-07-25 02:20:00 Test Item Value Reference Range Interpretation Comments Potassium Lvl (test code = Potassium 4.2 3.5-5.1 Lvl) [place] 513142-07-25 02:20:00 Test Item Value Reference Range Interpretation Comments Chloride Lvl (test code = Chloride Lvl) 97 95-109 [place] 513142-07-25 02:20:00 Test Item Value Reference Range Interpretation Comments CO2 (test code = CO2) 26 24-32 [place] 513142-07-25 02:20:00 Test Item Value Reference Range Interpretation Comments Calcium Lvl (test code = Calcium Lvl) 8.7 8.5-10.5 [place] 513142-07-25 02:20:00 Test Item Value Reference Range Interpretation Comments Total Protein (test code = Total 7.0 6.4-8.4 Protein) [place] 513142-07-25 02:20:00 Test Item Value Reference Range Interpretation Comments Albumin Lvl (test code = Albumin Lvl) 3.4 3.5-5.0 [place] 513142-07-25 02:20:00 Test Item Value Reference Range Interpretation Comments ALT (test code = ALT) 18 See_Comment [Auto mated message] The system which ge nerated this result transmit lavon reference range : <=65. The reference range was not used to interpr et this result as blayne l/abnormal. [place] 513142-07-25 02:20:00 Test Item Value Reference Range Interpretation Comments AST (test code = AST) 27 See_Comment [Auto mated message] The system which ge nerated this result transmit lavon reference range : <=37. The reference range was not used to interpr et this result as blayne l/abnormal. [place] 513142-07-25 02:20:00 Test Item Value Reference Range Interpretation Comments Alk Phos (test code = Alk Phos) 57 39-136 [place] 513142-07-25 02:20:00 Test Item Value Reference Range Interpretation Comments Bili Total (test code = Bili Total) 1.0 0.2-1.3 [facility]2022-07-25 02:20:00 Test Item Value Reference Range Interpretation Comments AGAP (test code = AGAP) 12.2 10.0-20.0 [facility]2022-07-25 02:20:00 Test Item Value Reference Range Interpretation Comments B/C Ratio (test code = B/C Ratio) 24 1 6-25 [place] 513142-07-25 02:20:00 Test Item Value Reference Range Interpretation Comments Globulin (test code = Globulin) 3.6 2.7-4.2 [facility]2022-07-25 02:20:00 Test Item Value Reference Range Interpretation Comments A/G Ratio (test code = A/G Ratio) 0.9 1 0.7-1.6 [facility]2022-07-25 02:20:00 Test Item Value Reference Range Interpretation Comments eGFR (test code = eGFR) 62 [facility]inteKdsevqfHRGQKTGUFC1489-72-34 02:20:00 Test Item Value Reference Range Interpretation Comments WBC (test code = WBC) 8.6 3.7-10.4 [place] 265512-07-25 02:20:00 Test Item Value Reference Range Interpretation Comments RBC (test code = RBC) 3.58 4.20-5.40 [facility] PointePehhhpvXIIJYJMEOS6258-42-80 02:20:00 Test Item Value Reference Range Interpretation Comments Hgb (test code = Hgb) 8.8 12.0-16.0 [place] 265512-07-25 02:20:00 Test Item Value Reference Range Interpretation Comments Hct (test code = Hct) 27.1 36.0-48.0 [place] 265512-07-25 02:20:00 Test Item Value Reference Range Interpretation Comments MCV (test code = MCV) 75.6 80.0-98.0 [place] 265512-07-25 02:20:00 Test Item Value Reference Range Interpretation Comments MCH (test code = MCH) 24.5 pg 27.0-31.0 [place] 265512-07-25 02:20:00 Test Item Value Reference Range Interpretation Comments MCHC (test code = MCHC) 32.4 32.0-36.0 [facility] PointeYhzesqoDYDHXNKGFO0034-74-70 02:20:00 Test Item Value Reference Range Interpretation Comments RDW (test code = RDW) 21.1 11.5-14.5 [place] 265512-07-25 02:20:00 Test Item Value Reference Range Interpretation Comments Platelet (test code = Platelet) 297 133-450 [facility] PointeRabxosuPXXPNBRYVN6597-00-24 02:20:00 Test Item Value Reference Range Interpretation Comments MPV (test code = MPV) 7.5 7.4-10.4 [place] 265512-07-25 02:20:00 Test Item Value Reference Range Interpretation Comments Segs (test code = Segs) 85.8 45.0-75.0 [place] 265512-07-25 02:20:00 Test Item Value Reference Range Interpretation Comments Lymphocytes (test code = Lymphocytes) 8.5 20.0-40.0 [place] 265512-07-25 02:20:00 Test Item Value Reference Range Interpretation Comments Monocytes (test code = Monocytes) 5.0 2.0-12.0 [facility] PointeRqhmualLEVRZBPFAN8782-23-24 02:20:00 Test Item Value Reference Range Interpretation Comments Eosinophils (test code = 0.3 See_Comment [A utomated message] The Eosinophils) system which ge nerated this result tra nsmitted reference range : <=4.0. The reference r hugo was not used to int erpret this result as normal/abnormal . [place] 265512-07-25 02:20:00 Test Item Value Reference Range Interpretation Comments Basophils (test code = 0.4 See_Comment [Aut omated message] The Basophils) system which ge nerated this result tra nsmitted reference range : <=1.0. The reference r hugo was not used to int erpret this result as normal/abnormal . [place] 265512-07-25 02:20:00 Test Item Value Reference Range Interpretation Comments Neutrophils # (test code = Neutrophils 7.4 1.5-8.1 #) [place] 265512-07-25 02:20:00 Test Item Value Reference Range Interpretation Comments Lymphocytes # (test code = Lymphocytes 0.7 1.0-5.5 #) [facility] PointeBujfqiuFJSEJXXCEA5106-57-73 02:20:00 Test Item Value Reference Range Interpretation Comments Monocytes # (test code 0.4 See_Comment [Aut omated message] The = Monocytes #) system which generated this result tra nsmitted reference range : <=0.8. The reference r hugo was not used to int erpret this result as normal/abnormal . [facility] PointeEyehsmcDMPDXGIJHW4533-51-15 02:20:00 Test Item Value Reference Range Interpretation Comments Microcyte (test code = 1+ *ABN*(06/12/22 Microcyte) 9:20 PM) [facility] [id number] 02:20:00 Test Item Value Reference Range Interpretation Comments HS Troponin I (test code = HS Troponin 52 I) [facility]2022-07-25 02:20:00 Test Item Value Reference Range Interpretation Comments Glucose Lvl (test code = Glucose Lvl) 103 70-99 [facility]2022-07-25 02:20:00 Test Item Value Reference Range Interpretation Comments BUN (test code = BUN) 22 - [facility]2022-07-25 02:20:00 Test Item Value Reference Range Interpretation Comments Creatinine Lvl (test code = Creatinine 0.90 0.50-1.40 Lvl) [facility]2022-07-25 02:20:00 Test Item Value Reference Range Interpretation Comments Sodium Lvl (test code = Sodium Lvl) 131 135-145 [facility]2022-07-25 02:20:00 Test Item Value Reference Range Interpretation Comments Potassium Lvl (test code = Potassium 4.2 3.5-5.1 Lvl) [facility]2022-07-25 02:20:00 Test Item Value Reference Range Interpretation Comments Chloride Lvl (test code = Chloride Lvl) 97 95-109 [facility]2022-07-25 02:20:00 Test Item Value Reference Range Interpretation Comments CO2 (test code = CO2) 24-32 [facility]2022-07-25 02:20:00 Test Item Value Reference Range Interpretation Comments Calcium Lvl (test code = Calcium Lvl) 8.7 8.5-10.5 [facility]2022-07-25 02:20:00 Test Item Value Reference Range Interpretation Comments Total Protein (test code = Total 7.0 6.4-8.4 Protein) [facility] [id number] 02:20:00 Test Item Value Reference Range Interpretation Comments Albumin Lvl (test code = Albumin Lvl) 3.4 3.5-5.0 [facility]PEN[facility]ITH [id number] 02:20:00 Test Item Value Reference Range Interpretation Comments ALT (test code = ALT) 18 See_Comment [Auto mated message] The system which ge nerated this result transmit lavon reference range : <=65. The reference range was not used to interpr et this result as blayne l/abnormal. [facility] [employer] [id number] 02:20:00 Test Item Value Reference Range Interpretation Comments AST (test code = AST) 27 See_Comment [Auto mated message] The system which ge nerated this result transmit lavon reference range : <=37. The reference range was not used to interpr et this result as blayne l/abnormal. [facility] [employer] [id number] 02:20:00 Test Item Value Reference Range Interpretation Comments Alk Phos (test code = Alk Phos) 57 39-136 [facility] [id number] 02:20:00 Test Item Value Reference Range Interpretation Comments Bili Total (test code = Bili Total) 1.0 0.2-1.3 [facility] [id number] 02:20:00 Test Item Value Reference Range Interpretation Comments AGAP (test code = AGAP) 12.2 10.0-20.0 [facility] [employer] [id number] 02:20:00 Test Item Value Reference Range Interpretation Comments B/C Ratio (test code = B/C Ratio) 24 1 6-25 [facility] [id number] 02:20:00 Test Item Value Reference Range Interpretation Comments Globulin (test code = Globulin) 3.6 2.7-4.2 [facility] [employer] [id number] 02:20:00 Test Item Value Reference Range Interpretation Comments A/G Ratio (test code = A/G Ratio) 0.9 1 0.7-1.6 [facility] [employer] [id number] 02:20:00 Test Item Value Reference Range Interpretation Comments eGFR (test code = eGFR) 62 [facility] PointeCbsxbrnXCFRDRIJFZ8614-50-36 02:20:00 Test Item Value Reference Range Interpretation Comments WBC (test code = WBC) 8.6 3.7-10.4 [place] 265512-07-25 02:20:00 Test Item Value Reference Range Interpretation Comments RBC (test code = RBC) 3.58 4.20-5.40 [place] 265512-07-25 02:20:00 Test Item Value Reference Range Interpretation Comments Hgb (test code = Hgb) 8.8 12.0-16.0 [place] 265512-07-25 02:20:00 Test Item Value Reference Range Interpretation Comments Hct (test code = Hct) 27.1 36.0-48.0 [place] 265512-07-25 02:20:00 Test Item Value Reference Range Interpretation Comments MCV (test code = MCV) 75.6 80.0-98.0 [place] 265512-07-25 02:20:00 Test Item Value Reference Range Interpretation Comments MCH (test code = MCH) 24.5 pg 27.0-31.0 [facility] PointeDdfyhecIMZUFNZAQA0404-12-67 02:20:00 Test Item Value Reference Range Interpretation Comments MCHC (test code = MCHC) 32.4 32.0-36.0 [facility] PointeLaumncsEGONMTWTKQ3146-32-97 02:20:00 Test Item Value Reference Range Interpretation Comments RDW (test code = RDW) 21.1 11.5-14.5 [facility] PointeDrbhdxqWYTCGHPXGU4157-23-76 02:20:00 Test Item Value Reference Range Interpretation Comments Platelet (test code = Platelet) 297 133-450 [facility] PointeNpdaeguESMJOVNOHT8639-06-60 02:20:00 Test Item Value Reference Range Interpretation Comments MPV (test code = MPV) 7.5 7.4-10.4 [place] 265512-07-25 02:20:00 Test Item Value Reference Range Interpretation Comments Segs (test code = Segs) 85.8 45.0-75.0 [place] 265512-07-25 02:20:00 Test Item Value Reference Range Interpretation Comments Lymphocytes (test code = Lymphocytes) 8.5 20.0-40.0 [place] 265512-07-25 02:20:00 Test Item Value Reference Range Interpretation Comments Monocytes (test code = Monocytes) 5.0 2.0-12.0 [facility] PointeVkivcflYCYKVUOMJT1611-79-41 02:20:00 Test Item Value Reference Range Interpretation Comments Eosinophils (test code = 0.3 See_Comment [A utomated message] The Eosinophils) system which ge nerated this result tra nsmitted reference range : <=4.0. The reference r hugo was not used to int erpret this result as normal/abnormal . [facility] PointeCngrcweQWOSBIYOSY2913-95-01 02:20:00 Test Item Value Reference Range Interpretation Comments Basophils (test code = 0.4 See_Comment [Aut omated message] The Basophils) system which ge nerated this result tra nsmitted reference range : <=1.0. The reference r hugo was not used to int erpret this result as normal/abnormal . [facility] PointeFqogwdbDVVMUZBWZA1275-08-97 02:20:00 Test Item Value Reference Range Interpretation Comments Neutrophils # (test code = Neutrophils 7.4 1.5-8.1 #) [facility] PointeJpegrdwJYEILLIEHL1028-92-28 02:20:00 Test Item Value Reference Range Interpretation Comments Lymphocytes # (test code = Lymphocytes 0.7 1.0-5.5 #) [facility] PointeMijeheiCHKYKMRCFR8657-41-30 02:20:00 Test Item Value Reference Range Interpretation Comments Monocytes # (test code 0.4 See_Comment [Aut omated message] The = Monocytes #) system which generated this result tra nsmitted reference range : <=0.8. The reference r hugo was not used to int erpret this result as normal/abnormal . [facility] PointeUxnyhnoHCCAZFKNGD2498-01-03 02:20:00 Test Item Value Reference Range Interpretation Comments Microcyte (test code = 1+ *ABN*(06/12/22 Microcyte) 9:20 PM) [facility]DglbpfaJDPOPHEC3868-20-99 11:14:00 Test Item Value Reference Range Interpretation Comments SURGICAL (test code = SR) R UN DATE: 06/01/22 [place] - LAB PAGE 1 RUN TIME: 1114 Specimen Inquiry RUN USER: INTERFACE P ATIENT: KELLY SLOAN LOC: [place] U #: [id number] AGE/SX: 87/F ROOM: [facility] RE05/20/22REG DR: Frank Putnam MD : 35 BED: 1 DIS: 05/26/22 STATUS: DIS IN TLOC: SPEC #: [id number] RECD: 05/28/22 STATUS: MALOU REQ #: [id number] TINY: 05/25/22- SUBM DR: Frank Putnam MD ENTERED: 05/28/22-1416 SP TYPE: SURGICAL OTHR DR: Lizeth Morales MD, Nehme X MD Chaugle, Abdul Hannan MD Lee, Gabriel MD Mahmood, Khalid MD Tharani, Shamshad NPORDERED: 39831, 65619, IHC ADD 23178/7, 39933-43, ANATOMIC SPEC COPIES TO: Lizeth Morales MD [address] [place] [address] [id number] John Alberto MD [address] [place] [address] Marcellus De La Garza MD [address] [facility] [address] [place] [address] Camron Fonseca MD [address] [place] [address] Kyler Longoria MD [address] [place] [address] Frank Putnam MD [address] [facility] [address] [place] [address] Ofelia Syed NP [address] [place] [address] CONTINUED ON NEXT PAGE R UN DATE: 06/01/22 [place] - [facility] PAGE 2 RUN TIME: 1114 Specimen Inquiry RUN USER: INTERFACE S PEC #: [id number] PATIENT: KELLY SLOAN #[id number] (Continued) PROCEDURES: [id number] (05/28/22-1417) 56943 (06/01/22) IHC ADD 83585 (06/01/22) 06500-97 (06/01/22) TISSUES: A. PERITONEUM BIOPSY - NODULE, [...] submitted in 1cassette. Technical component performed at [facility],[address] [place] [address] Unless gross only, the diagnosis is based [...] CK20 and calretinin. Inhibin immunohistochemical stainperformed at [facility] and interpreted at [facility] is negative in the tumor cells. CONTINUED ON NEXT PAGE R UN DATE: 06/01/22 [place] - LAB PAGE 3 RUN TIME: 1114 Specimen Inquiry RUN USER: INTERFACE S PEC #: [id number] PATIENT: KELLY SLOAN Patricia #[id number] (Continued) CLINICAL INFORMATION PERITONAL NODULE ----- Signed _ Dav Marie 06/01/22 1114 END OF REPORT [id number] 10:45:00 Test Item Value Reference Range Interpretation Comments MAGNESIUM (test code = MAG) 1.65 mg/dL 1.80-2.40 L CBC W/AUTO [id number] 08:08:00 Test Item Value Reference Range Interpretation [...] (test code NO = MDIFF) BASIC METABOLIC [id number] 07:29:00 Test Item Value Reference Range Interpretation [...] = 8.9 mg/dL 8.0-10.5 N CA) PROTHROMBIN [id number] 06:41:00 Test Item Value Reference Range Interpretation [...] recurrent infar ct). COVID 19 Asymptomatic IH [id number] 04:50:00 Test Item Value Reference Range Interpretation [...] tests. COMMENTS: PRE ENDO- CT GUID NDL PLCND (Biopsy/Asp)2022-05-25 00:00:00 [facility] 1935 Sex: F Name: KELLY SLOAN [facility] : 1935 Age/S: 87 / F [address] [place] [address] Blvd Unit #: [id number] Loc: [place] [address] Phys: Jamshid Chang MD Acct: [id number] Dis Date: Status:ADM IN PHONE #: [phone] Exam Date: 05/25/20223 FAX #: [phone] Reason: peritoneal mets-etiology? EXAMS: CPT CODE: [id number] CT GUID NDL PLCMT (Biopsy/Asp) 81783 PROCEDURE INFORMATION: Exa m: IR Biopsy, abdominal or retroperitoneal mass, percutaneous [...] CONT 05/20/2022 9:07 AM Total DLP (mGy-cm): 638.0 PROCEDURE: [...] biopsy of peritoneal mass. PAGE 1 Signed Report(CONTINUED) Name: KELLY SLOAN [facility] [place] : 1935 Age/S: 87 / F [address] [place] [address] Unit #: [id number] Loc: [place] [address] Phys: Jamshid Chang MD Acct: [id number] Dis Date:Status: ADM IN PHONE #: [phone] Exam Date: 05/25/2022 1313 FAX #: [phone] Reason: peritoneal mets- etiology? EXAMS: CPT CODE: [id number] CT GUID NDL PLCMT (Biopsy/Asp) 72220 (Continued) at 1501 Reported and signed by: Aure Hanson D.O. CC: Jamshid Chang MD; Frank Putnam MD Technologist:Jose Kaiser, RT(R)(CT) CTDI: DLP: Trnscb Date/Time: 05/25/2022 (150) t.SDR.MP37 Orig Print D/T: S: 05/25/2022 (1501) PAGE 2 Signed ReportPROTEIN ELECTROPHORESIS [id number] 17:08:00 Test Item Value Reference Range Interpretation Comments TOTAL PROTEIN 5.7 g/dL 6.0-8.5 L (test code = PROTE) ALBUMIN (test 3.1 g/dL 2.9-4.4 code = ALBE) [id number]-4-[id number] 0.3 g/dL 0.0-0.4 (test code = A1G) RQMPP-2-KZSOZKDY 0.6 g/dL 0.4-1.0 (test code = A2G) [...] is not apparent.Perfor med At: HD [facility] [address] [place] , [place] [id number] Willis Lovett MD Ph:[phone] rform ed At: [facility] [address] [place], [place] [id number] tim TAVERA MD Ph:[phone] [Automated mess age] The system [employer] generated this result transmit lavon reference range : (). The reference r hugo was not used to interpret this result as normal/abnormal . LACTIC DEHYDROGENASE(LDH)2022-05-24 17:08:00 Test Item Value Reference Range Interpretation Comments LACTIC DEHYDROGENASE(LDH) (test 233 IUnits/L 84-246 N code = LDH) TOTAL IRON BINDING [id number] 17:08:00 Test Item Value Reference Range Interpretation Comments SERUM IRON (test code = IRON) 88 mcg/dL 35-150 N TOTAL IRON BINDING CAPACITY (test 382 mcg/dL 260-445 N code = TIBC) UIBC (test code = UIBC) 294 mcg/dL IRON SATURATION (test code = 23.0 % 14-34 N FESAT) VITAMIN [id number] 17:08:00 Test Item Value Reference Range Interpretation Comments VITAMIN B12 (test code = VITB12) 262 pg/mL 193-986 N FOLIC [id number] 17:08:00 Test Item Value Reference Range Interpretation Comments FOLIC ACID (test code = FOL) 11.3 ng/mL 3.1-17.5 N AG [id number] 17:08:00 Test Item Value Reference Range Interpretation Comments AG CARCINOEMBRYONIC (test code = 0.1 NG/ML 0.0-5.0 N CEA) [place] [id number] 17:08:00 Test Item Value Reference Range Interpretation Comments CA 125 (test 115.0 U/mL 0.0-38.1 A Greta Diagnosti cs code = Electrochemilum inescence CA125) Immunoassay(ECL IA)Values obtained with d ifferent assay methods or kits cannotbe used interchangeably . Results cannot be interpreted asabsolute evidence of the presence or absence of fei gnantdisease. CA27-29, [id number] 17:08:00 Test Item Value Reference Range Interpretation Comments CA27-29, 22.1 U/mL 0.0-38.6 [employer] Share [employer] Style[employer] BIOMIRA (test Immunochemilum inometric code = QW6669) Methodology ( ICMA)Values obtained with d ifferent assay methods or kits cannotbe used interchangeably . Results cannot be inter preted asabsolute evid ence of the presence or abs ence of malignantdiseas e.Performed At: [facility] [address] [place], [place] [id number] Willis Lovett MD Ph:[phone] BASIC METABOLIC [id number] 04:47:00 Test Item Value Reference Range Interpretation [...] code = 7.8 mg/dL 8.0-10.5 L CA) [id number] 04:47:00 Test Item Value Reference Range Interpretation Comments MAGNESIUM (test code = MAG) 1.80 mg/dL 1.80-2.40 N CBC W/AUTO [id number] 04:37:00 Test Item Value Reference Range Interpretation [...] DIFF REQUIRED (test code NO = MDIFF) [id number] 17:11:00 Test Item Value Reference Range Interpretation Comments HAPTOGLOBIN (test code 137 mg/dL 41-333 Perfo rmed At: DA = HAPT) [facility] [place] [address] [address] [facility] [address] [place], [place] [id number] h CN Ph:[phone] BASIC METABOLIC [id number] 04:10:00 Test Item Value Reference Range Interpretation [...] code = 8.1 mg/dL 8.0-10.5 N CA) [id number] 04:10:00 Test Item Value Reference Range Interpretation Comments MAGNESIUM (test code = MAG) 1.92 mg/dL 1.80-2.40 N CBC W/AUTO [id number] 03:56:00 Test Item Value Reference Range Interpretation [...] (test code = LDL) NEAR OPTIM AL/ABOVE [id number] HIGH>UD=372 BRUNILDA Y HIGH*Guidelines provided by the [facility] terol EducationProgra m Adult Treatment Panel III SERUM [id number] 05:12:00 Test Item Value Reference Range Interpretation Comments SERUM IRON (test code = IRON) 90 mcg/dL 35-150 N THYROID STIMULATING [id number] 05:12:00 Test Item Value Reference Range Interpretation Comments THYROID STIMULATING 2.69 0.42-5.47 N Results in HORMONE (test code = TSH) mi lli-International Units/mL [id number] 05:12:00 Test Item Value Reference Range Interpretation Comments FERRITIN (test code = BRIDGET) 35.6 ng/mL 11.0-306.8 N RETIC COUNT (AUTOMATED)2022-05-20 05:08:00 Test Item Value Reference Range Interpretation Comments RETIC COUNT (AUTOMATED) (test code = 2.3 % 0.3-2.3 N RETICA) BASIC METABOLIC [id number] 05:00:00 Test Item Value Reference Range Interpretation [...] code = 8.0 mg/dL 8.0-10.5 N CA) [id number] 05:00:00 Test Item Value Reference Range Interpretation Comments MAGNESIUM (test code = MAG) 2.06 mg/dL 1.80-2.40 CBC W/AUTO [id number] 04:59:00 Test Item Value Reference Range Interpretation [...] = MDIFF) - CT ABD PELVIS W/O [id number] 00:00:00 [facility] 1935 Sex: F Name: KELLY SLOAN [facility] : 1935 Age/S: 87 / F [address] [place] [address] Unit #: [id number] Loc: [place] [address] Phys: Kyler Longoria MD Acct: [id number] Dis Date: Status: ADM IN PHONE #: [phone] Exam Date: 05/20/2022921 FAX #: [phone] Reason: Peritoneal nodularity, breast cancer EXAMS: CPT CODE: [id number] CT ABD PELVIS W/O CONT 14038 PROCEDURE INFORMATION: Exam: CT Abdomen And Pelvis Without Contrast Exam date and time: 05/20/2022 9:07 AM Age: 87 years oldClinical indication: Other: Peritoneal nodularity, breast cancer TECHNIQUE: [...] Gallbladder and bile ducts: Hyperattenuation of gallbladder conten ts compatible with vicarious excretion of contrast or [...] region. PAGE 1 Signed Report (CONTINUED) Name: SLOANKELLY M [facility] Ram[facility]rez : 1935 Age/S: 87 / F [address] [place] [address] Unit #: [id number] Loc: [place] [address] Phys: Kyler Longoria MD Acct: [id number] Dis Date: Status: ADM IN PHONE #: [phone] Exam Date: 05/20/2022 09 FAX #: [phone] Reason: Peritoneal nodularity, breast cancer EXAMS: CPT CODE:[id number] CT ABD PELVIS W/O CONT 19595 (Continued) Intraperitoneal space: There is a small volume offree intraperitoneal fluid. There is no focal fluid [...] of the uterus and adnexa by this techniq ue with amorphous tissue containing multiple calcifications. Relative contributions of uterine/adnexal masses and metastatic disease are undetermined. 4. The appendix is not visualized with cecal tip inseparable from described pelvic changes. 5. Severe atherosclerosis. 6. Bilateral, right greater than left pleural effusions and pulmonary opacities redemonstrated. The reader is referred to recent CT chest report for further details. at 1527 Reported and signed by: Memo Saleem M.D. PAGE 2 Signed Report (CONTINUED) Name: KELLY SLOAN [facility] : 1935 Age/S: 87 / F [address] [place] [address] Unit #: [id number] Loc: [place] [address] Phys: Kyler Longoria MD Acct: [id number] Dis Date: Status: ADM IN PHONE #: [phone] Exam Date: 05/20/2022921 FAX #: [phone] Reason: Peritoneal nodularity, breast cancer EXAMS: CPT CODE: [id number] CT ABD PELVIS W/O CONT 81553 (Continued) CC: Kyler Longoria; Frank Putnam MD Technologist:Rosalind Sheehan. RT(R)(CT) CTDI: DLP: Trnscb Date/Time: 05/20/2022 (1526) [email or web address] Orig Print D/T: S: 05/20/2022 (1526) PAGE 3 Signed ReportURINALYSIS [id number] 07:24:00 Test Item Value Reference Range Interpretation [...] 0-5 /HPF NONE SEEN SQU) CBC W/AUTO [id number] 04:25:00 Test Item Value Reference Range Interpretation [...] REQUIRED (test code NO = MDIFF) RBC [id number] 04:25:00 Test Item Value Reference Range Interpretation Comments ANISOCYTOSIS (test code = ANISO) 1+ POLYCHROMASIA (test code = POLC) 1+ HYPOCHROMIA (test code = HYPO) 1+ MICROCYTOSIS (test code = MICR) 1+ BASIC METABOLIC [id number] 04:14:00 Test Item Value Reference Range Interpretation [...] code = 7.7 mg/dL 8.0-10.5 L CA) [id number] 04:14:00 Test Item Value Reference Range Interpretation Comments MAGNESIUM (test code = MAG) 1.77 mg/dL 1.80-2.40 L - DUP VEIN [id number] 00:00:00 [facility] : 1935 Sex: F Name: KELLY SLOAN [facility] [place] : 1935 Age/S: 87 / F [address] [place] [address] Unit #: [id number] Loc: [place] [address] Phys: Analia Espinal MEDICAL OFFICE RECEPTIONIST Acct: [id number] Dis Date: Status: ADM IN PHONE #: [phone] Exam Date: 05/19/2022 0548 FAX #: [phone] Reason: PRE CABG E SPRING EXAMS: CPT CODE: [id number] DUP VEIN JOSE ENRIQUE 90974 PROCEDURE INFORMATION: Exam: US Duplex Lower Extremity Veins; Vein mapping Exam date and time: 05/19/2022 5:19 AM Age: 87 years old Clinical indication: Screening exam; Pre cabg eval; End- stage renal disease, operative planning for hemodialysis access creation TECHNIQUE: Imaging protocol: Real-time duplex ultrasound of the Lower Extremities with 2-D gomez scale, color Doppler flow and spectral waveform analysis with image documentation. Complete exam focused on the bilateral lower extremity [...] filling. RIGHT LEG: Thigh proximal: 4.1 mm T high mid: 3.5 mm Thigh distal: 1.9 mm [...] 1 Signed Report (CONTINUED) Name: KELLY SLOAN [facility] : 1935 Age/S: 87 / F [address] Unit #: [id number] Loc: [place] [address] Phys: Analia Espinal MEDICAL OFFICE RECEPTIONIST Acct: [id number] Dis Date: Status: ADM IN PHONE #: [phone] Exam Date: 05/19/2022 0548 FAX #: [phone] Reason: PRE CABG EVAL EXAMS: CPT CODE: [id number] DUP VEIN JOSE ENRIQUE 96050 (Continued) CC: Analia Ghotra MEDICAL OFFICE RECEPTIONIST; Frank Putnam MD Technologist: Nannette Maldonado RDMS(AB)(OB) Trnscb Date/Time: 05/19/2022 (617) [email or web address] Orig Print D/T: S: 05/19/2022 (618) Probe: PAGE 2 Signed Report- DUP EXTRACRANIAL [id number] 00:00:00 [facility] : 1935 Sex: F Name: KELLY SLOAN [facility] [place] : 1935 Age/S: 87 / F [address] Unit #: [id number] Loc: [place] [address] Phys: Analia Espinal MEDICAL OFFICE RECEPTIONIST Acct: [id number] Dis Date:Status: ADM IN PHONE #: [phone] Exam Date: 05/19/2022 0548 FAX #: [phone] Reason: PRE CABGEVAL EXAMS: CPT CODE: [id number] DUP EXTRACRANIAL JOSE ENRIQUE 77953 PROCEDURE INFORMATION: Exam: US Duplex Bilateral Extracranial Arteries, Carotid Arteries Exam date and time: 05/19/2022 5:02 AM Age: 87 yearsold Clinical indication: Screening exam; Patient HX: Pre [...] the left common carotid artery. Left internal carotidartery: There is calcified plaque of the left [...] carotid artery stenosis is based on criteria definedby the Society of Radiologists in Ultrasound (SRU). Normal is no stenosis. Mild is less than 50% stenosis. Moderate is 50-69% stenosis. Severe is greater than 69% stenosis to near occlusion. Near occlusion is a markedly narrowed lumen. Total occlusion is no detectable patent lumen. at 0639 Reported and signed by: Epifanio Morel M.D PAGE 1 Signed Report (CONTINUED) Name: SLOAN,KELLY M [facility] : 1935 Age/S: 87 / F [address] [place] [address] Unit #: [id number] Loc: [place] [address] Phys: Analia Sanders MEDICAL OFFICE RECEPTIONIST Acct: [id number] Dis Date: Status: ADM IN PHONE #: [phone] Exam Date: 05/19/2022 0548 FAX #: [phone] Reason: PRE CABG EVAL EXAMS: CPT CODE: [id number] DUP EXTRACRANIAL JOSE ENRIQUE 98079 (Continued) CC: Analia Edwards MEDICAL OFFICE RECEPTIONIST; Frank Putnam MD Technologist: Nannette Maldonado RDMS(AB)(OB) Trnscb Date/Time: 05/19/2022 (638) t.[email or web address].[email or web address] Orig Print D/T: S: 05/19/2022 (638) Probe: PAGE 2 Signed Report- CT CHEST W/O [id number] 00:00:00 [facility] : 1935 Sex: F Name: KELLY SLOAN [facility] : 1935 Age/S: 87 / F [address] [place] [address] Unit #: [id number] Loc: [place] [address] Phys: Analia Espinal NP Acct: [id number] Dis Date: Status: ADM IN PHONE #: [phone] Exam Date: 05/19/2022 1047 FAX #: [phone] Reason: PRE CABG E SPRING EXAMS: CPT CODE: [id number] CT CHEST W/O CONTRAST 54868 PROCEDURE INFORMATION: Exam: CT Chest Without Contrast; Diagnostic Exam date and time: 05/19/2022 10:29 AM Age: 87 years old Clinical indication: Condition or disease; Other: Pre cabg eval TECHNIQUE: Imaging protocol: Diagnostic computed tomography of the chest without contrast. Radiation optimization: All CT scans at this facility use at least one of these dose optimization techniques: automated exposure control; mA and/or kV adjustment perpatient size (includes targeted exams where dose is matched to clinical indication); or iterative rec onstruction. COMPARISON: US DUP EXTRACRANIAL JOSE ENRIQUE 05/19/2022 [...] demonstrates moderate atherosclerotic calcification. The aorta demonstrates severe [...] present. PAGE 1 Signed Report (CONTINUED) Name: SLOAN,KELLY M [facility] : 1935 Age/S: 87 / F [address] [place] [address] Blvd Unit #: [id number] Loc: [id number] Phys: Analia Sanders MEDICAL OFFICE RECEPTIONIST Acct: [id number] Dis Date: Status: ADM IN PHONE #: [phone] Exam Date: 05/19/2022 1049 FAX #: [phone] Reason: PRE CABG EVAL EXAMS: CPT CODE: [id number] CT CHEST W/O CONTRAST 74236 (Continued) Liver: The liver is hyperattenuating, greater than 80 Hounsfield units. Otherwise normal morphology through visualized portions. Gallbladder and bile ducts: Hyperattenuation of gallbladder contents compatible with vicarious excretion of contrast versus sludge. Nopericholecystic edema. Intraperitoneal space: Motion limited survey of upper abdominal contents. Peritoneal nodularity in the left upper quadrant with individual nodules measuring up to 2.5 x 1.4 cm. Bones/joints: The thoracic spine demonstrates mild degenerative changes at multiple levels. Soft tissues: There are breast conservation therapy changes in the right breast. There is no chest wall mass orfluid collection. Notes: Findings were discussed with Analia Espinal at 05/19/2022 1:28 PM CDT. IMPRESSION: 1. Cardiomegaly. Severe coronary arterial calcifications. Aortic valve calcifications.2. Small pericardial effusion. Mass lesion in the epicardial fat adjacent to the left anterior descending artery. Given peritoneal disease, metastasis is not excluded. 3. Severe atherosclerosis of thethoracic aorta. 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 4. Small, right greater than left pleural effusions with associated compressive atelectasis. 5. Mild interstitial septal thickening predominantly in dependent portions of the lungs favoring interstitialedema. 6. Moderate-sized hiatal hernia. 7. Peritoneal nodularity suspicious for malignant peritonealdisease. 8. Hyperattenuation of liver parenchyma. Increased iron deposition, amiodarone toxicity andother metabolic disorders in the differential. at 1329 Reported and signed by: Memo Saleem M.D. PAGE 2 Signed Report (CONTINUED) Name: KELLY SLOAN [facility] : 1935 Age/S: 87 / F [address] [place], [place] [address] Unit #: [id number] Loc: [place] [address] Phys: Analia Sanders MEDICAL OFFICE RECEPTIONIST Acct: [id number] Dis Date: Status: ADM IN PHONE #: [phone] Exam Date: 05/19/2022 1047 FAX #: [phone] Reason: PRE CABG EVAL EXAMS: CPT CODE: [id number] CT CHEST W/O CONTRAST 08553 (Continued) CC: Analia Sanders MEDICAL OFFICE RECEPTIONIST; Frank Putnam MD Technologist:Jose Kaiser, RT(R)(CT) CTDI: DLP: Trnscb Date/Time: 05/19/2022 (262) Venita Orig Print D/T: S: 05/19/2022 (1255) PAGE 3 Signed ReportGLUCOSE [id number] 21:58:00 Test Item Value Reference Range Interpretation Comments GLUCOSE BEDSIDE (test 134 MG/DL 70-110 H Perfor med by certified code = GLUBED) 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
--- NOTE | 2022-08-20 23:28 | ER ---
Nurse's Notes [facility] Name: Kelly Phillips Age: 87 yrs Sex: Female : 1935 Arrival Date: 08/20/2022 Time: 22:17 Bed 25 Private MD: Diagnosis: Presentation: 08/20 22:17 Chief complaint: EMS states: toned out to pt home for abdominal pressure. Pt reports ld1 having cancer. Coronavirus screen: At this time, the client does not indicate any symptoms associated with coronavirus-19. Ebola Screen: No symptoms or risks identified at this time. Initial Sepsis Screen: Does the patient meet any 2 criteria? No. Patient's initial sepsis screen is negative. Risk Assessment: Do you want to hurt yourself or someone else? Patient reports no desire to harm self or others. Onset of symptoms was August 20, 2022. 22:17 Method Of Arrival: EMS: [facility] ld1 22:17 Acuity: JASMINA 3 ld1 Triage Assessment: 22:18 General: Appears in no apparent distress. comfortable, Behavior is calm, cooperative, ld1 appropriate for age. Pain: Complains of pain in abdomen Pain does not radiate. Pain currently is 6 out of 10 on a pain scale. Quality of pain is described as throbbing. EENT: No signs and/or symptoms were reported regarding the EENT system. Neuro: Level of Consciousness is awake, alert, obeys commands, Oriented to person, place, time, situation. Cardiovascular: Capillary refill < 3 seconds Patient's skin is warm and dry. Respiratory: Airway is patent Respiratory effort is even, unlabored. GI: Abdomen is flat, non-distended. GI: Abdomen is. : No signs and/or symptoms were reported regarding the genitourinary system. Derm: No signs and/or symptoms reported regarding the dermatologic system. Musculoskeletal: No signs and/or symptoms reported regarding the musculoskeletal system. Historical: - Allergies: 22:18 PENICILLINS; ld1 - PMHx: 22:18 GERD; Hypertensive disorder; pulmonary edema; ld1 - PSHx: 22:18 Appendectomy; tumor removal RT breast; ld1 - Immunization history:: Adult Immunizations up to date. - Social history:: Smoking status: Patient denies any tobacco usage or history of. Patient/guardian denies using alcohol. Vital Signs: 22:17 BP 122 / 62; Pulse 95; Resp 18; Pulse Ox 98% on 2 lpm NC; Weight 49.9 kg; Height 5 ft. ld1 4 in. (162.56 cm); Pain 6/10; 22:17 Body Mass Index 18.88 (49.90 kg, 162.56 cm) ld1 ED Course: 22:17 Patient arrived in ED. bp1 22:18 Triage completed. ld1 22:18 Arm band placed on right wrist. ld1 Administered Medications: No medications were administered Outcome: 23:28 Patient left the ED. ld1 Signatures: Althea Colbert Lauren, RN RN ld1
[2022-08-20 23:32] VITALS: BP 122/62; O2SAT 98
== END 2022-08-20 23:28 | disposition left against medical advice (07) ==
LOC: ER 22:14
DX: Z53.21 Procedure and treatment not carried out due to patient leaving prior to being seen by health care provider (principal)
CPT/HCPCS: 99282

== ENCOUNTER 2022-09-19 13:28 | Emergency (ER) | payer OTHER ==
--- OUTSIDE RECORDS SUMMARY | 2022-09-19 13:44 | XMS REPORT | Continuity of Care Document ---
:1935 Author Organization [facility] t Address [address] [place] [address] Care Team Providers Name Role Phone Frank Putnam Attending Clinician Unavailable Jose Holloway MD Attending Clinician DONIS VYAS Attending Clinician Unavailable Donis Vyas MD Attending Clinician [phone] Virtual, Surgeon Attending Clinician Unavailable DONIS VYAS Attending Clinician Unavailable ISAIAS SHARPE Attending Clinician Unavailable 1, [facility] Room Attending Clinician Unavailable CAYETANO WINTERS Attending Clinician Unavailable CHAPIS HANSON Attending Clinician Unavailable Chapis Hanson Attending Clinician Sosa Hodge Attending Clinician Canales_M Attending Clinician Unavailable Ariella Shaffer Attending Clinician Unavailable Cachorro_A_BRODY Attending Clinician Unavailable Iliana Hollins Attending Clinician [phone] Frank Putnam Admitting Clinician Unavailable Yadira Gaston Admitting Clinician Unavailable SOSA HODGE Admitting Clinician Unavailable Sosa Hodge Admitting Clinician Gurvinder_Patricia Admitting Clinician Unavailable Love-Crow_A_AH Admitting Clinician Unavailable Payers Payer Name Policy Type Policy Number Effective Date Expiration Date S ource [place] [facility] [id number] 2021 MGD MCR 00:00:00 Worlds [id number] 2021 OON 00:00:00 Worlds [id number] [place] [facility] [id number] 2021 (MEDICARE 00:00:00 REPLACEMENT HMO) [employer] OF [place] - [id number] 2019 [place]ANPLUS 00:00:00 (MEDICARE REPLACEMENT/ADVAN TAGE - HMO) [employer] [id number] Common [facility] Problems Condition Condition Condition Status Onset Resolution Last Treating Co mments Source Name Details Category Date Date Treatment Clinician Date Port-A-Cat Port-A-Cat Disease Active 2021-11 [facility] [address] in [facility] h in place 0-05 Co llege 00:00: of 00 Medicin e 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 0-05 College disease disease 00:00: of 00 Medicin e Encounter Encounter Disease Active 2021-11 [place] [facility] for for 0-05 College antineopla antineopla 00:00: of stic stic 00 Medicin chemothera chemothera e py py 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 9-14 Colleg e of both of both 00:00: of ovaries ovaries 00 Medicin e 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 9-14 College disease disease 00:00: of involving involving 00 Medi rafael inupiat inupiat e coronary coronary artery of artery of inupiat inupiat heart heart without without angina angina pectoris pectoris Congestive Congestive Disease Active [facility] heart heart 9-14 College failure failure 00:00: of 00 Medicin e 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 9-14 College effusion effusion 00:00: of 00 Medicin e FALL FALL Diagnosis Active 2022-06-12 Mem oria Active 06-12 21:03:00 l 06/12/2022 00:00: Harish rodriguez [facility] FLUID FLUID Diagnosis Active 2022-06-22 Mem oria OVERLOAD, OVERLOAD, 06-12 21:57:00 l ACUTE CHF ACUTE CHF 00:00: Cristo suárez Active 00 06/12/2022 [facility] Primary Primary Problem Active [place] malignant Malignant [...] isabel 05-22 Family 00:00: Practic 00 e Arthritis Arthritis Problem Active Com mon of right of knee, Spirit knee right [facility] [id number] Right Problem Active Common sciatic Spirit nerve pain - [facility] [id number] Primary Problem Active Comm on osteoarthr Spirit itis of [facility] right knee [facility] [id number] Pain in Problem Active Common joint of Spirit right knee [facility] FLUID FLUID Diagnosis Active 2022-06-22 Mem oria OVERLOAD, OVERLOAD, 21:57:00 l UNSPECIFIE UNSPECIFIE He rmann D D Active [facility] HEART HEART Diagnosis Active 2022-06-22 Me moria FAILURE, FAILURE, 21:57:00 l UNSPECIFIE UNSPECIFIE He rmann D D Active [facility] Benign Benign Problem Active 2022-06-19 Sanya clementine essential essential 23:17:13 l hypertensi hypertensi He rmann on on (disorder) (disorder) Active Problem 06/19/2022 [facility] Dyslipidem Dyslipide Problem Active 2022-06-19 Memoria ia reshma 23:17:13 l (disorder) (disorder) He rmann Active Problem 06/19/2022 [facility] 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 of reaction 00 Medicin s to e drug Penicill DA Active [place] HIVES [facility] ins 05-18 Clear 00:00: Qiu 00 [facility] NO KNOWN Allergy Active [facility] PENICILL Allergy Active [place] INS to Family substanc Practic e e penicill penicill Active Memori a in in [facility] Social History Social Habit Start Date Stop Date Quantity Comments Source History of Tobacco Common Spirit - Use [facility] kes [facility] Center History SDOH [facility] Alcohol Std Drinks Medica l Center History SDOH [facility] Alcohol Binge Medical F[address] [facility] History SDOH [facility] Alcohol Comment Medical C enter History SDOH [facility] Transport Non-Med Medical Center History SDOH [facility] Housing Places Medical Ce nter Lived Exposure to 2022-08-14 2022-08-24 Not sure [facility] e SARS-CoV-2 (event) 00:00:00 07:02:00 of Med icine History [facility] 2022-08-23 2022-08-23 0 [facility] madKast ge Physical Activity 00:00:00 00:00:00 of Medi cine DPW History SDMT 2022-08-23 2022-08-23 0 [facility] madKast ge Physical Activity 00:00:00 00:00:00 of Medi cine MPS Tobacco use and 2022-08-18 2022-08-[address] [facility] kes exposure 00:00:00 00:00:00 Medical Center Alcohol intake 2022-08-18 2022-08-[address] [facility] es 00:00:00 00:00:00 non-drinker Medical Cente r (finding) History SDMT 2022-08-18 2022-08-[address] [facility] Alcohol Frequency 00:00:00 00:00:00 Medical Center History [facility] 2022-08-18 2022-08-18 2 YOHAN Alexander Transport Med 00:00:00 00:00:[address] History [facility] 2022-08-18 2022-08-18 3 YOHAN Alexander Housing Unable to 00:00:00 00:00:00 Medical Center Pay History [facility] 2022-08-18 2022-08-18 3 YOHAN Alexander Housing Homeless 00:00:00 00:00:00 Medical Center Last Year Social History 2022-06-13 2022-06-13 [facility] 19:32:18 19:32:18 Sex Ass[birth year] At [birth year] YOHAN Juárez 00:00:00 00:00:00 Medical Center Smoking Status Start Date Stop Date Source Never smoked tobacco [facility] Flores ege of Medicine Medications Ordered Filled Start Stop Current Ordering Indication Dosage Frequency Signature Comments Components Source Medication Medication Date Date Medication? Clinician (SIG) Name Name OXYGEN GAS 2021-11 Yes [facility] 0-11 College 08:36: of 45 Medicin e metoprolol 2021-11 Yes 25mg Take 1 [facility] (TOPROL-XL) 0-11 Tablet by Col lege 25 MG XL 00:00: mouth of tablet 00 daily. Medicin e OXYGEN GAS 2021-11 Yes [facility] 0-05 College 07:31: of 51 Medicin e hydrocodone 2021-11 Yes 1{tbl} Take 1 [facility] -acetaminop 0-05 Tablet by Col lege hen (NORCO) 00:00: mouth of 5-325 mg 00 every 4 Medicin tablet hours as e needed for Pain. Sennosides 2021-11 Yes 1{tbl} Take 1 [place] (SENNA) 8.6 0-05 Tablet by Col lege MG TABS 00:00: mouth of 00 daily. Medicin e hydrocodone 2021-11 Yes 1{tbl} Take 1 [facility] -acetaminop 0-05 Tablet by Col lege hen (NORCO) 00:00: mouth of 5-325 mg 00 every 4 Medicin tablet hours as e needed for Pain. Sennosides 2021-11 Yes 1{tbl} Take 1 [place] (SENNA) 8.6 0-05 Tablet by Col lege MG TABS 00:00: mouth of 00 daily. Medicin e aspirin 81 2021-0 Yes 81mg QD Take [address] MG EC 9-30 by mouth [facility] tablet 18:28: daily. Medical 19 Center aspirin 81 2021-0 Yes 81mg QD Take [address] MG EC 9-30 by mouth [facility] tablet 18:28: daily. [facility] 19 Center magnesium 2021-0 Yes 400mg QD Take [address] oxide 9-29 mg by [facility] (MAG-OX) 11:09: mouth Medical 400 mg 44 daily. Center (241.3 mg magnesium) tablet metoprolol 2021-0 Yes 25mg Q.5D Take [address] tartrate 9-29 by mouth 2 [facility] (LOPRESSOR) 11:09: (two) Medic al 25 MG 44 times Center tablet daily. pantoprazol 2021-0 Yes 40mg QD Take [address] [facility] e 9-29 by mouth [facility] (PROTONIX) 11:09: daily. Medic al 40 MG 44 Center tablet predniSONE 2021-0 Yes 20mg QD Take [address] (DELTASONE) 9-29 by mouth Luke s 20 MG 11:09: daily. Medical tablet 44 Center losartan 2021-0 Yes 25mg QD Take [address] (COZAAR) 25 9-29 by mouth Luke s MG tablet 11:09: daily. Medica l 44 Center potassium 2021-0 Yes 10meq Q.5D Take [address] chloride 9-29 mEq by [facility]ukes (KLOR-CON-M 11:09: mouth 2 Med ical ) 10 MEQ CR 44 (two) Center tablet times daily. magnesium 2021-0 Yes 400mg QD Take [address] oxide 9-29 mg by [facility] (MAG-OX) 11:09: mouth Medical 400 mg 44 daily. Center (241.3 mg magnesium) tablet metoprolol 2021-0 Yes 25mg Q.5D Take [address] tartrate 9-29 by mouth 2 [facility] (LOPRESSOR) 11:09: (two) Medic al 25 MG 44 times Center tablet daily. pantoprazol 2-0 Yes 40mg QD Take [address] e 9-29 by mouth [facility] (PROTONIX) 11:09: daily. Medic al 40 MG 44 Center tablet predniSONE 2022-0 Yes 20mg QD Take [address] (DELTASONE) 9-29 by mouth Luke s 20 MG 11:09: daily. Medical tablet 44 Center losartan 2021-0 Yes 25mg QD Take [address] (COZAAR) 25 9-29 by mouth Luke s MG tablet 11:09: daily. Medica l 44 Center potassium 2021-0 Yes 10meq Q.5D Take [address] chloride 9-29 mEq by [facility]ukes (KLOR-CON-M 11:09: mouth 2 Med ical ) 10 MEQ CR 44 (two) Center tablet times daily. benzonatate 2021-0 Yes 200mg Take [address] (TESSALON) 9-29 mg by [facility] 200 MG 11:05: mouth 3 Medical capsule 38 (three) Center times daily as needed for Cough. bumetanide 2021-0 Yes 1mg Q.5D Take [address] (BUMEX) 1 9-29 by mouth 2 Luke s MG tablet 11:05: (two) Medical 38 times Center daily. benzonatate 2021-0 Yes 200mg Take [address] (TESSALON) 9-29 mg by [facility] 200 MG 11:05: mouth 3 Medical capsule 38 (three) Center times daily as needed for Cough. bumetanide 2021-0 Yes 1mg Q.5D Take [address] (BUMEX) 1 9-29 by mouth 2 Luke s MG tablet 11:05: (two) Medical 38 times Center daily. albuterol 2021-0 Yes 2.5mg Q.25D Take 2.[address] (PROVENTIL) 9-29 mg by [facility] 2.5 mg/0.5 11:03: nebulizati M edical mL Nebu 11 on 4 Center nebulizer (four) solution times daily. albuterol 2021-0 Yes 2.5mg Q.25D Take 2.[address] (PROVENTIL) 9-29 mg by [facility] 2.5 mg/0.5 11:03: nebulizati M edical mL Nebu 11 on 4 Center nebulizer (four) solution times daily. bumetanide 2021-0 Yes 1mg Take 1 mg Ba y[facility] (BUMEX) 1 9-10 by mouth. Colle ge MG tablet 00:00: of 00 Medicin e metoprolol 0 Yes 25mg Take 25 mg [facility] (LOPRESSOR) 9-10 by mouth. Col lege 25 MG 00:00: of tablet 00 Medicin e bumetanide 0 Yes 1mg Take 1 mg [facility] (BUMEX) 1 9-10 by mouth. Colle ge MG tablet 00:00: of 00 Medicin e metoprolol 0 2- No 25mg Take 25 mg [facility] (LOPRESSOR) 9-10 10-11 by mouth. Co llege 25 MG 00:00: 00:00 of tablet 00 :00 Medicin e rosuvastati 0 Yes 5mg Take 5 mg [facility] n (CRESTOR) 8-19 by mouth Flores ege 5 MG tablet 00:00: daily. of 00 Medicin e rosuvastati 2021-0 Yes 5mg Take 5 mg [facility] n (CRESTOR) 8-19 by mouth Flores ege 5 MG tablet 00:00: daily. of Medicin e anastrozole Yes 1mg Take 1 mg [facility] (ARIMIDEX) 8-16 by mouth Colle ge 1 MG tablet 00:00: daily. of 00 Medicin e anastrozole 0 Yes 1mg Take 1 mg [facility] (ARIMIDEX) 8-16 by mouth Colle ge 1 MG tablet 00:00: daily. of Medicin e Bumex No Notes: Memoria 7-29 (Same As: l 22:00: Bumex) Tomas 00 Bumex No Notes: Memoria 7-29 (Same As: l 22:00: Bumex) Tomas 00 Micro-K 10 Yes 10 mEq = 1 M emoria oral 7-29 cap, PO, l capsule, 16:31: BID, # 180 Her viera [facility] 00 cap, 0 release Refill(s), Pharmacy: [facility] [place], 162.56, cm, 06/13/22 14:35:00 CDT, Height, 80.057, kg, 06/13/22 14:35:00 CDT, Weight Micro-K 10 Yes 10 mEq = 1 M emoria oral 7-29 cap, PO, l capsule, 16:31: BID, # 180 Her viera extended 00 cap, 0 release Refill(s), Pharmacy: [facility], 162.56, cm, 06/13/22 14:35:00 CDT, Height, 80.057, kg, 06/13/22 14:35:00 CDT, Weight pantoprazol 2022-0 Yes 40 mg = 1 M emoria e 40 mg 7-29 tab, PO, l oral 16:30: Daily, # [place] enteric 00 90 tab, 0 coated Refill(s), tablet Pharmacy: [facility], 162.56, cm, 06/13/22 14:35:00 CDT, Height, 80.057, kg, 06/13/22 14:35:00 CDT, Weight magnesium 2-0 Yes 400 mg = 1 Me moria oxide 400 7-29 tab, PO, l mg oral 16:30: Daily, X Harish n tablet 00 30 day, # 30 tab, 0 Refill(s), Pharmacy: [facility], 162.56, cm, 06/13/22 14:35:00 CDT, Height, 80.057, kg, 06/13/22 14:35:00 CDT, Weight pantoprazol 2-0 Yes 40 mg = 1 M emoria e 40 mg 7-29 tab, PO, l oral 16:30: Daily, # [place] enteric 00 90 tab, 0 coated Refill(s), tablet Pharmacy: [facility], 162.56, cm, 06/13/22 14:35:00 CDT, Height, 80.057, kg, 06/13/22 14:35:00 CDT, Weight magnesium 2-0 Yes 400 mg = 1 Me moria oxide 400 7-29 tab, PO, l mg oral 16:30: Daily, X Harish n tablet 00 30 day, # 30 tab, 0 Refill(s), Pharmacy: [facility], 162.56, cm, 06/13/22 14:35:00 CDT, Height, 80.057, kg, 06/13/22 14:35:00 CDT, Weight losartan 25 2022-0 Yes 25 mg = 1 M emoria mg oral 7-29 tab, PO, l tablet 16:29: Daily, # [place] 00 90 tab, 1 Refill(s), Pharmacy: [facility], 162.56, cm, 06/13/22 14:35:00 CDT, Height, 80.057, kg, 06/13/22 14:35:00 CDT, Weight losartan 25 2-0 Yes 25 mg = 1 M emoria mg oral 7-29 tab, PO, l tablet 16:29: Daily, # Tomas 00 90 tab, 1 Refill(s), Pharmacy: [facility], 162.56, cm, 06/13/22 14:35:00 CDT, Height, 80.057, kg, 06/13/22 14:35:00 CDT, Weight predniSONE 2021-0 Yes 20 mg = 1 Me moria 20 mg oral 7-29 tab, PO, l tablet 16:28: Daily, X 3 Alejandra nn 00 day, # 3 tab, 0 Refill(s), Pharmacy: [facility], 162.56, cm, 06/13/22 14:35:00 CDT, Height, 80.057, kg, 06/13/22 14:35:00 CDT, Weight metoprolol 2021-0 Yes 25 mg = 1 Me moria tartrate 25 7-29 tab, PO, l mg oral 16:28: BID, # 60 Alejandra nn tablet 00 tab, 0 Refill(s), Pharmacy: [facility], 162.56, cm, 06/13/22 14:35:00 CDT, Height, 80.057, kg, 06/13/22 14:35:00 CDT, Weight predniSONE 2-0 Yes 20 mg = 1 Me moria 20 mg oral 7-29 tab, PO, l tablet 16:28: Daily, X 3 Alejandra nn 00 day, # 3 tab, 0 Refill(s), Pharmacy: [facility], 162.56, cm, 06/13/22 14:35:00 CDT, Height, 80.057, kg, 06/13/22 14:35:00 CDT, Weight metoprolol 2-0 Yes 25 mg = 1 Me moria tartrate 25 7-29 tab, PO, l mg oral 16:28: BID, # 60 Alejandra nn tablet 00 tab, 0 Refill(s), Pharmacy: [facility], 162.56, cm, 06/13/22 14:35:00 CDT, Height, 80.057, kg, 06/13/22 14:35:00 CDT, Weight benzonatate 2021-0 Yes 200 mg = 1 Memoria 200 mg oral 7-29 cap, PO, l capsule 16:27: TID, do Tomas 00 not crush or chew, X 10 day, # 30 cap, 0 Refill(s), Pharmacy: [facility], 162.56, cm, 06/13/22 14:35:00 CDT, Height, 80.057, kg, 06/13/22 14:35:00 CDT, Weight bumetanide 2021-0 Yes 1 mg = 1 Mem oria 1 mg oral 7-29 tab, PO, l tablet 16:27: BID, # 60 Harish n 00 tab, 1 Refill(s), Pharmacy: [facility], 162.56, cm, 06/13/22 14:35:00 CDT, Height, 80.057, kg, 06/13/22 14:35:00 CDT, Weight dextrometho 2021-0 Yes 10 mL, PO, Memoria rphan-guaiF 7-29 Q6H, PRN l ENesin 10 16:27: Cough, X Herm nupur mg-200 mg/5 00 14 day, # mL oral 120 mL, 0 liquid Refill(s), Pharmacy: [facility], 162.56, cm, 06/13/22 14:35:00 CDT, Height, 80.057, kg, 06/13/22 14:35:00 CDT, Weight benzonatate 2021-0 Yes 200 mg = 1 Memoria 200 mg oral 7-29 cap, PO, l capsule 16:27: TID, do [place] 00 not crush or chew, X 10 day, # 30 cap, 0 Refill(s), Pharmacy: [facility], 162.56, cm, 06/13/22 14:35:00 CDT, Height, 80.057, kg, 06/13/22 14:35:00 CDT, Weight bumetanide 2021-0 Yes 1 mg = 1 Mem oria 1 mg oral 7-29 tab, PO, l tablet 16:27: BID, # 60 Harish n 00 tab, 1 Refill(s), Pharmacy: [facility], 162.56, cm, 06/13/22 14:35:00 CDT, Height, 80.057, kg, 06/13/22 14:35:00 CDT, Weight dextrometho 2021-0 Yes 10 mL, PO, Memoria rphan-guaiF 7-29 Q6H, PRN l ENesin 10 16:27: Cough, X Herm nupur mg-200 mg/5 00 14 day, # mL oral 120 mL, 0 liquid Refill(s), Pharmacy: [facility], 162.56, cm, 06/13/22 14:35:00 CDT, Height, 80.057, kg, 06/13/22 14:35:00 CDT, Weight albuterol-i 2021-0 Yes 3 mL, NEB, Memoria pratropium 7-29 RQ4H, # l 2.5-0.5 mg 16:26: 540 mL, 0 He rmann inhalation 00 Refill(s), solution Pharmacy: [facility], 162.56, cm, 06/13/22 14:35:00 CDT, Height, 80.057, kg, 06/13/22 14:35:00 CDT, Weight aspirin 81 2021-0 Yes 81 mg = 1 Me moria mg tablet, 7-29 tab, PO, l enteric 16:26: Daily, # Harish n coated 00 90 tab, 0 Refill(s), Pharmacy: [facility], 162.56, cm, 06/13/22 14:35:00 CDT, Height, 80.057, kg, 06/13/22 14:35:00 CDT, Weight albuterol-i 2021-0 Yes 3 mL, NEB, Memoria pratropium 7-29 RQ4H, # l 2.5-0.5 mg 16:26: 540 mL, 0 He rmann inhalation 00 Refill(s), solution Pharmacy: [facility], 162.56, cm, 06/13/22 14:35:00 CDT, Height, 80.057, kg, 06/13/22 14:35:00 CDT, Weight aspirin 81 Yes 81 mg = 1 Me moria mg tablet, 06-17 tab, PO, l enteric 16:26: Daily, # Harish n coated 00 90 tab, 0 Refill(s), Pharmacy: [facility] [place], 162.56, cm, 06/13/22 14:35:00 CDT, Height, 80.057, kg, 06/13/22 14:35:00 CDT, Weight magnesium No Notes: Memori a sulfate 06-17 WASTE: F/P l 14:02: - Sink; - Municipal Trash Bin potassium Yes /= 14 Memoria chloride 06-17 [place], l 14:02: march dissolve each 20 mEq tablet in 4 oz of water. Allow about 2 minutes for the tablets to disintegra te. Stir before giving to prepare slurry and administer . Please exclude patient's with feeding tube less than 14 [place] (Dobhoff, J-tube, etc) and pediatric and patients. magnesium No Notes: Memori a sulfate 06-17 WASTE: F/P l 14:02: - Sink; - [employer] Trash Bin potassium Yes /= 14 Memoria chloride -29 [place], l 14:02: march dissolve each 20 mEq tablet in 4 oz of water. Allow about 2 minutes for the tablets to disintegra te. Stir before giving to prepare slurry and administer . Please exclude patient's with feeding tube less than 14 [place] (Dobhoff, J-tube, etc) and pediatric and patients. ipratropium Yes 3 mL, NEB, [place] -albuterol 06-17 RQ4H, # Colleg e (DUO-NEB) 00:00: 540 mL, 0 of 0.5-2.5 (3) 00 Refill(s), Me dicin MG/3ML Pharmacy: e [facility] [place], 162.56, cm, 06/13/22 14:35:00 CDT, Height, 80.057, kg, 06/13/22 14:35:00 CDT, Weight Aspirin 81 2021-0 Yes 81 mg = 1 Ba ylor MG tablet - tab, PO, Colleg e 00:00: Daily, # of 00 90 tab, 0 Medicin Refill(s), e Pharmacy: [facility], 162.56, cm, 06/13/22 14:35:00 CDT, Height, 80.057, kg, 06/13/22 14:35:00 CDT, Weight Dextrometho 2021-0 Yes 10 mL, PO, [facility] rphan-guaiF 06-17 Q6H, PRN Flores ege ENesin 00:00: Cough, X of 10-200 00 14 day, # Medicin MG/5ML LIQD 120 mL, 0 e Refill(s), Pharmacy: [facility], 162.56, cm, 06/13/22 14:35:00 CDT, Height, 80.057, kg, 06/13/22 14:35:00 CDT, Weight losartan 2021-0 Yes 25mg Take 25 mg [place] (COZAAR) 25 06-17 by mouth Flores ege MG tablet 00:00: daily. of 00 Medicin e magnesium 0 Yes 400 mg = 1 Ba ylor oxide 06-17 tab, PO, [place] (MAG-OX) 00:00: Daily, X of 400 MG 00 30 day, # Medicin tablet 30 tab, 0 e Refill(s), Pharmacy: [facility], 162.56, cm, 06/13/22 14:35:00 CDT, Height, 80.057, kg, 06/13/22 14:35:00 CDT, Weight pantoprazol 2021-0 Yes 40mg Take 40 mg Gwyn e - by mouth [place] (PROTONIX) 00:00: daily. of 40 MG 00 Medicin tablet e ipratropium 2021-0 Yes 3 mL, NEB, [facility] -albuterol 06-17 RQ4H, # Colleg e (DUO-NEB) 00:00: 540 mL, 0 of 0.5-2.5 (3) 00 Refill(s), Me dicin MG/3ML Pharmacy: e [facility], 162.56, cm, 06/13/22 14:35:00 CDT, Height, 80.057, kg, 06/13/22 14:35:00 CDT, Weight Dextrometho Yes 10 mL, PO, Gwyn rphan-guaiF 06-17 Q6H, PRN Flores ege ENesin 00:00: Cough, X of 10-200 00 14 day, # Medicin MG/5ML LIQD 120 mL, 0 e Refill(s), Pharmacy: [facility], 162.56, cm, 06/13/22 14:35:00 CDT, Height, 80.057, kg, 06/13/22 14:35:00 CDT, Weight losartan Yes 25mg Take 25 mg [place] my[place] (COZAAR) 25 06-17 by mouth Flores ege MG tablet 00:00: daily. of 00 Medicin e magnesium Yes 400 mg = 1 Ba ylor oxide 06-17 tab, PO, [place] (MAG-OX) 00:00: Daily, X of 400 MG 30 day, # Medicin tablet 30 tab, 0 e Refill(s), Pharmacy: [facility], 162.56, cm, 06/13/22 14:35:00 CDT, Height, 80.057, kg, 06/13/22 14:35:00 CDT, Weight pantoprazol Yes 40mg Take 40 mg Gwyn e 06-17 by mouth [place] (PROTONIX) 00:00: daily. of 40 MG 00 Medicin tablet e Aspirin 81 2021- No 81 mg = 1 B aylor MG tablet 06-17 10-11 tab, PO, Colle ge 00:00: 00:00 Daily, # of 00 :00 90 tab, 0 Medicin Refill(s), e Pharmacy: [facility], 162.56, cm, 06/13/22 14:35:00 CDT, Height, 80.057, kg, 06/13/22 14:35:00 CDT, Weight aspirin No Notes: Do Memor ia 06-15 not crush l 14:00: or chew. [place] 00 (Same As: Ecotrin) aspirin No Notes: Do Memor ia 7-27 not crush l 14:00: or chew. Tomas 00 (Same As: Ecotrin) predniSONE 2021-0 No 20 mg, 1 Mem oria 7-27 tab, l 13:00: Route: PO, [place] 00 Drug form: TAB, Daily, Dosing Weight 80.057, kg, Start date: 06/15/22 8:00:00 CDT, Duration: 30 day, Stop date: 07/14/22 8:00:00 CDT, 0 predniSONE 2-0 No 20 mg, 1 Mem oria 7-27 tab, l 13:00: Route: PO, [place] 00 Drug form: TAB, Daily, Dosing Weight 80.057, kg, Start date: 06/15/22 8:00:00 CDT, Duration: 30 day, Stop date: 07/14/22 8:00:00 CDT, 0 potassium 2021-0 No /= 14 Memoria chloride 20 7-27 [place]inese, l mEq oral 11:31: march Tomas tablet, 00 dissolve extended each 20 release mEq tablet (KCL) in 4 oz of water. Allow about 2 minutes for the tablets to disintegra te. Stir before giving to prepare slurry and administer . Please exclude patient's with feeding tube less than 14 [place] (Dobhoff, J-tube, etc) and pediatric and patients. potassium 2021-0 No /= 14 Memoria chloride 20 7-27 [place], l mEq oral 11:31: may [place] tablet, 00 dissolve extended each 20 release mEq tablet (KCL) in 4 oz of water. Allow about 2 minutes for the tablets to disintegra te. Stir before giving to prepare slurry and administer . Please exclude patient's with feeding tube less than 14 [place] (Dobhoff, J-tube, etc) and pediatric and patients. metoprolol 2021-0 No Notes: Memor ia tartrate 7-27 (Same as: l 02:00: Lopressor) Tomas 00 metoprolol 2021-0 No Notes: Memor ia tartrate 7-27 (Same as: l 02:00: Lopressor) Tomas 00 Cepacol 2021-0 No Notes: Memoria Sore Throat 7- Same as: l 15 mg-3.6 19:24: Cepacol Alejandra nn mg mucous 00 membrane lozenge Cepacol 2022-0 No Notes: Memoria Sore Throat - Same as: l 15 mg-3.6 19:24: Cepacol Alejandra nn mg mucous 00 membrane lozenge anastrozole No Notes: Sanya clementine 7-26 (Same as: l 14:00: Arimidex) Tomas 00 Hazardous Drug Group 1: Antineopla stic Hazardous Drug -- Refer to safe handling procedure PPE Matrix WASTE: F/P - Black; E Yellow omeprazole No 20 mg, 1 Mem oria 7-26 cap, l 14:00: Route: PO, Tomas 00 Drug form: DRC, Daily, Dosing Weight 63.636, kg, Start date: 06/14/22 9:00:00 CDT, Duration: 30 day, Stop date: 07/13/22 9:00:00 CDT Protonix No Notes: Memoria 7-26 Tablet l 14:00: should not Tomas 00 be chewed or crushed. (Same as: Protonix) anastrozole No Notes: Sanya clementine 7-26 (Same as: l 14:00: Arimidex) Tomas 00 Hazardous Drug Group 1: Antineopla stic Hazardous Drug -- Refer to safe handling procedure PPE Matrix WASTE: F/P - Black; E Yellow omeprazole No 20 mg, 1 Mem oria 7-26 cap, l 14:00: Route: PO, Tomas 00 Drug form: DRC, Daily, Dosing Weight 63.636, kg, Start date: 06/14/22 9:00:00 CDT, Duration: 30 day, Stop date: 07/13/22 9:00:00 CDT Protonix No Notes: Memoria 7-26 Tablet l 14:00: should not [place] 00 be chewed or crushed. (Same as: Protonix) atorvastati No Notes: Sanya clementine n 7-26 (Same as: l 02:00: Lipitor) Tomas 00 atorvastati No Notes: Sanya clementine n 7-26 (Same as: l 02:00: Lipitor) [place] 00 docusate No Notes: Memoria 7-25 (Same as: [...] tab, PO, l oral tablet 13:59: Bedtime [facility] hydrochloro No 12.5 mg = M emoria thiazide 7-25 1 tab, PO, l 12.5 mg 13:59: Daily [place] oral tablet omeprazole No 20 mg = 1 Me moria 20 mg oral 7-25 cap, PO, l delayed 13:59: Daily Tomas capsule losartan No 100 mg = 1 Mem oria 100 mg oral 7-25 tab, PO, l tablet 13:59: Daily rosuvastati Yes 5 mg = 1 Me moria n 5 mg oral 7-25 tab, PO, l tablet 13:59: Bedtime anastrozole Yes 1 mg = 1 Me moria 1 mg oral 7-25 tab, PO, l tablet 13:59: Daily amLODIPine No 5 mg = 1 Mem oria 5 mg oral 7-25 tab, PO, l tablet 13:59: Daily atorvastati No 40 mg = 1 M emoria n 40 mg 7-25 tab, PO, l oral tablet 13:59: Bedtime [facility] hydrochloro No 12.5 mg = M emoria thiazide 7-25 1 tab, PO, l 12.5 mg 13:59: Daily Tomas oral tablet 00 omeprazole No 20 mg = 1 Me moria 20 mg oral 7-25 cap, PO, l delayed 13:59: Daily [place] release 00 capsule losartan No 100 mg = 1 Mem oria 100 mg oral 7-25 tab, PO, l tablet 13:59: Daily [place] 00 rosuvastati Yes 5 mg = 1 Me moria n 5 mg oral 7-25 tab, PO, l tablet 13:59: Bedtime Tomas 00 furosemide No Notes: Memor ia 7-25 (Same as: l 13:00: Lasix) [place]omas MEDICATION WASTE Product Size: 40 mg Product Wasted: ___ mg furosemide No Notes: Memor ia 7-25 (Same as: l 13:00: Lasix) [place] MEDICATION WASTE Product Size: 40 mg Product Wasted: ___ mg albuterol-i No Notes: Sanya clementine pratropium 7-25 (Same as: l 2.5-0.5 mg 12:00: Duoneb) Herm nupur inhalation 00 solution albuterol-i No Notes: Sanya clementine pratropium 7-25 (Same as: l 2.5-0.5 mg 12:00: Duoneb) Herm nupur inhalation 00 solution levofloxaci No Notes: Do M emoria n 7-25 not give l 09:00: w/antacids [place] 00 , dairy pdt & minerals Take 1 hr before or 2 hr after dairy pdt (Same as:Levaqui n) levofloxaci No Notes: Do M emoria n 7-25 not give l 09:00: w/antacids Tomas 00 , dairy pdt & minerals Take 1 [...] ia 7-25 Take with l 08:41: food. Tomas 00 predniSONE No Notes: Memor ia 7-25 Take with l 08:41: food. Tomas 00 D10W No 250 mL, Memoria (bolus) IV 7-25 999 ml/hr, l 07:01: Route: IV, Tomas 00 Drug Form: INJ, Dosing Weight 63.636, kg, PRN, PRN Blood Glucose Results, Start date: 06/13/22 2:01:00 CDT, Duration: 30 day, Stop date: 07/13/22 2:00:00 CDT, Infuse over: 0.3 hr, 0 D1W No 250 mL, Memoria (bolus) IV 7-25 999 ml/hr, l 07:01: Route: IV, [place] 00 Drug Form: INJ, Dosing Weight 63.636, kg, PRN, PRN Blood Glucose Results, Start date: 06/13/22 2:01:00 CDT, Duration: 30 day, Stop date: 07/13/22 2:00:00 CDT, Infuse over: 0.3 hr, 0 Lovenox No Notes: Memoria 7-25 (Same as: l 07:00: Lovenox) Tomas Lovenox No Notes: Memoria 7-25 (Same as: l 07:00: Lovenox) [place] 00 Saline No Notes: Memoria Flush 0.9% 7-25 (Same as: l 06:53: BD Posiflush) Saline No Notes: Memoria Flush 0.9% 7-25 (Same as: l 06:53: BD Posiflush) Dextrose No 25 mL, Memoria 50% Syringe 7-25 Route: l (D50W) 06:51: IVP, [place] 00 Dosing Weight 63.636, kg, PRN, PRN Blood Glucose Results, Start date: 06/13/22 1:51:00 CDT, Duration: 30 day, Stop date: 07/13/22 1:50:00 CDT glucagon No 1 mg, Memoria 25 Route: IM, l 06:51: Drug form: PDR/INJ, [...] clementine 7-25 (Same as: l 06:51: Apresoline ) Push over 5 minutes Tessalon No Notes: Memoria Perles -25 (Same As: l 06:51: Tessalon Perles) "Do Not Crush" potassium No /= 14 Memoria chloride 7-25 Beninese, l 06:51: march dissolve each 20 mEq tablet in 4 oz of water. Allow about 2 minutes for the tablets to disintegra te. Stir before giving to prepare slurry and administer . Please exclude patient's with feeding tube less than 14 Beninese (Dobhoff, J-tube, etc) and pediatric and patients. potassium No Notes: Memori a phosphate-s - (Same as: l odium 06:51: Phos-NaK) Tomas [...] WASTE: F/P l 06:51: - Sink; E [place] 00 - Municipal Trash Bin magnesium No Notes: Memori a oxide 7-25 (Same as: l 06:51: Mag-Ox [place] 00 400) Magnesium oxide [id number] g elemental magnesium Dose=____m g magnesium oxide (___mg elemental magnesium) calcium No Notes: Memoria gluconate 7-25 WASTE: F/P l 06:51: - Sink; E [place]omas 00 - Municipal Trash Bin calcium No Notes: Memoria gluconate + 7-25 WASTE: F/P l Sodium 06:51: - Sink; E Harish n Chloride 00 - 0.9% IV 120 Municipal mL Trash Bin Dextrose No 25 mL, Memoria 50% Syringe 25 Route: l (D50W) 06:51: IVP, Tomas 00 Dosing Weight 63.636, kg, PRN, PRN Blood [...] clementine 06-13 (Same as: l 06:51: Apresoline ) Push over 5 minutes Tessalon No Notes: Memoria Perles 06-13 (Same As: l 06:51: Tessalon Perles) "Do Not Crush" potassium No /= 14 Memoria chloride 7-25 Beninese, l 06:51: march dissolve each 20 mEq tablet in 4 oz of water. Allow about 2 minutes for the tablets to disintegra te. Stir before giving to prepare slurry and administer . Please exclude patient's with feeding tube less than 14 Beninese (Dobhoff, J-tube, etc) and pediatric and patients. potassium No Notes: Memori a phosphate-s 06-13 (Same as: l odium 06:51: Phos-NaK) phosphate 00 Each 1.5 250 mg-280 gm [...] WASTE: F/P l 06:51: - Sink; E [place] 00 - Municipal Trash Bin magnesium No Notes: Memori a oxide 7-25 (Same as: l 06:51: Mag-Ox [place] 00 400) Magnesium oxide 617ci=646b g elemental magnesium Dose=____m g magnesium oxide (___mg elemental magnesium) calcium No Notes: Memoria gluconate 7-25 WASTE: F/P l 06:51: - Sink; E [place] 00 - Municipal Trash Bin calcium No Notes: Memoria gluconate + 7-25 WASTE: F/P l Sodium 06:51: - Sink; E Harish n Chloride 00 - 0.9% IV 120 Municipal mL Trash Bin Lasix No Notes: Memoria 7-25 (Same as: l 02:15: Lasix) [place] MEDICATION WASTE Product Size: 40 mg Product Wasted: ___ mg Lasix No Notes: Memoria 7-25 (Same as: l 02:15: Lasix) [place] 00 MEDICATION WASTE Product Size: 40 mg Product Wasted: ___ mg dexamethaso 2022-0 No 10 mg, 2.5 Memoria ne 7-25 mL, Route: l 01:03: IVP, Drug form: INJ, ONCE, Dosing Weight 63.636, kg, Priority: STAT, Start date: 06/12/22 20:03:00 CDT, Stop date: 06/12/22 20:03:00 CDT, 0 albuterol-i 0 No Notes: Sanya clementine pratropium 7-25 (Same as: l 2.5-0.5 mg 01:03: Duoneb) Herm nupur inhalation 00 solution dexamethaso 0 No 10 mg, 2.5 Memoria ne 7-25 mL, Route: l 01:03: IVP, Drug form: INJ, ONCE, Dosing Weight 63.636, kg, Priority: STAT, Start date: 06/12/22 20:03:00 CDT, Stop date: 06/12/22 20:03:00 CDT, 0 albuterol-i 2021-0 No Notes: Sanya clementine pratropium 7-25 (Same as: l 2.5-0.5 mg 01:03: Duoneb) Herm nupur inhalation 00 solution Tramadol Tramadol 2019-0 Yes Jose Alberto 1 tablet Common HCl HCl 6-30 [facility] 00:00: - [facility] Tramadol Tramadol 2019-0 No 1{table Tramadol HCl 50 MG HCl 50 MG 6-30 t} HCl 50 MG 00:00: 00 Tramadol Tramadol 2019-0 No 1{table Tramadol HCl 50 MG HCl 50 MG 6-30 t} HCl 50 MG 00:00: 00 Tramadol Tramadol 2019-0 No 1{table Tramadol HCl 50 MG HCl 50 MG 6-30 t} HCl 50 MG 00:00: 00 Tramadol Tramadol 2019-0 No 1{table Tramadol HCl 50 MG HCl 50 MG 6-30 t} HCl 50 MG 00:00: 00 acyclovir 5 acyclovir 5 No acyclovir Devoted % topical % topical 5 % Medic al ointment ointment topical Grou p APPLY TO APPLY TO ointment AFFECTED AFFECTED APPLY TO AREA FOUR AREA FOUR AFFECTED TIMES A DAY TIMES A DAY AREA FOUR FOR 7 DAYS. FOR 7 DAYS. TIMES A DAY FOR 7 DAYS. anastrozole anastrozole No anastrozol [facility]oted 1 mg tablet 1 mg tablet e 1 mg Medical TAKE ONE TAKE ONE tablet Group (1) (1) TAKE ONE TABLET(S) TABLET(S) (1) BY MOUTH BY MOUTH TABLET(S) ONCE A DAY. ONCE A DAY. BY MOUTH ONCE A DAY. chlorthalid chlorthalid No chlorthali [facility]oted one 25 mg one 25 mg done 25 mg Medical tablet TAKE tablet TAKE tablet Group ONE (1) ONE (1) TAKE ONE TABLET(S) TABLET(S) (1) BY MOUTH BY MOUTH TABLET(S) DAILY. DAILY. BY MOUTH DAILY. cholecalcif cholecalcif No cholecalci Devoted cathi cathi ferol Medical (vitamin (vitamin (vitamin James up D3) 1,250 D3) 1,250 D3) 1,250 mcg (50,000 mcg (50,000 mcg unit) unit) (50,000 capsule capsule unit) TAKE ONE TAKE ONE capsule (1) (1) TAKE ONE CAPSULE(S) CAPSULE(S) (1) BY MOUTH BY MOUTH CAPSULE(S) EVERY WEEK EVERY WEEK BY MOUTH FOR 6 FOR 6 EVERY WEEK WEEKS. WEEKS. FOR 6 WEEKS. cyclobenzap cyclobenzap No cyclobenza Devoted rine 10 mg rine 10 mg santosh 10 Medical tablet TAKE tablet TAKE mg tablet Group ONE (1) ONE (1) TAKE ONE TABLET BY TABLET BY (1) TABLET MOUTH ONCE MOUTH ONCE BY MOUTH A DAY A DAY ONCE A DAY NEEDED FOR NEEDED FOR NEEDED BACK BACK FOR BACK SPASMS. SPASMS. SPASMS. ibuprofen ibuprofen No ibuprofen Devoted 800 mg 800 mg 800 mg Medical tablet TAKE tablet TAKE tablet Group ONE (1) ONE (1) TAKE ONE TABLET BY TABLET BY (1) TABLET MOUTH 3 MOUTH 3 BY MOUTH 3 TIMES A DAY TIMES A DAY TIMES A FOR 7 DAYS, FOR 7 DAYS, DAY FOR 7 THEN TAKE THEN TAKE DAYS, THEN ONE (1) ONE (1) TAKE ONE TABLET BY TABLET BY (1) TABLET MOUTH 3 MOUTH 3 BY MOUTH 3 TIMES DAILY TIMES DAILY TIMES NEEDED NEEDED DAILY FOR PAIN. FOR PAIN. NEEDED FOR PAIN. losartan losartan No losartan Dev oted 100 mg 100 mg 100 mg Medical tablet TAKE tablet TAKE tablet Group ONE (1) ONE (1) TAKE ONE TABLET(S) TABLET(S) (1) BY MOUTH BY MOUTH TABLET(S) ONCE A DAY. ONCE A DAY. BY MOUTH ONCE A DAY. omeprazole omeprazole No omeprazole [facility]oted 20 mg 20 mg 20 mg Medical capsule,del capsule,del capsule,de Group ayed ayed layed release release release TAKE ONE TAKE ONE TAKE ONE (1) (1) (1) CAPSULE(S) CAPSULE(S) CAPSULE(S) BY MOUTH BY MOUTH BY MOUTH ONCE A DAY. ONCE A DAY. ONCE A DAY. valacyclovi valacyclovi No valacyclov Devoted r 1 gram r 1 gram ir 1 gram Me dical tablet TAKE tablet TAKE tablet Group ONE (1) ONE (1) TAKE ONE TABLET(S) TABLET(S) (1) BY MOUTH BY MOUTH TABLET(S) THREE TIMES THREE TIMES BY MOUTH A DAY. A DAY. THREE TIMES A DAY. anastrozole anastrozole No 1 Q1D anastrozol [place] 1 mg tablet 1 mg tablet e 1 mg Family Take 1 Take 1 tablet Practic tablet tablet Take 1 e every day every day tablet by oral by oral every day route. route. by oral route. hydrochloro hydrochloro No 1 Q1D [facility] thiazide thiazide othiazide Fa fredrick 12.5 mg 12.5 mg 12.5 mg Practi c tablet Take tablet Take tablet e 1 tablet 1 tablet Take 1 every day every day tablet by oral by oral every day route. route. by oral route. omeprazole omeprazole No 1 Q1D omeprazole [facility] 20 mg 20 mg 20 mg Family [...] Common thiazide thiazide Ring defined Spir it [facility] Anastrozole Anastrozole Yes Jose Alberto not Common Ring defined [facility] Omeprazole Omeprazole Yes Jose Alberto not Common Ring defined [facility] Losartan Losartan Yes Jose Alberto not Comm on Potassium Potassium [facility] Losartan No Losartan Potassium Potassium Potassium Lidocaine-P Lidocaine-P No Lidocaine- rilocaine rilocaine Prilocaine Chlorthalid Chlorthalid No Chlorthali one one done Halobetasol Halobetasol No Halobetaso Propionate Propionate l Propionate Naproxen Naproxen No Naproxen Hydrochloro Hydrochloro No Hydrochlor thiazide thiazide othiazide Anastrozole Anastrozole No Anastrozol e Omeprazole Omeprazole No Omeprazole Diclofenac Diclofenac No Diclofenac Sodium Sodium Sodium Losartan Losartan No Losartan Potassium Potassium Potassium Halobetasol Halobetasol No Halobetaso Propionate Propionate l Propionate Diclofenac Diclofenac No Diclofenac Sodium Sodium Sodium Lidocaine-P Lidocaine-P No Lidocaine- rilocaine rilocaine Prilocaine Naproxen Naproxen No Naproxen Hydrochloro Hydrochloro No Hydrochlor thiazide thiazide othiazide Anastrozole Anastrozole No Anastrozol e Omeprazole Omeprazole No Omeprazole Chlorthalid Chlorthalid No Chlorthali one one done Anastrozole Anastrozole No Anastrozol e Losartan Losartan No Losartan Potassium Potassium Potassium Naproxen Naproxen No Naproxen Diclofenac Diclofenac No Diclofenac Sodium Sodium Sodium Omeprazole Omeprazole No Omeprazole Lidocaine-P Lidocaine-P No Lidocaine- rilocaine rilocaine Prilocaine Halobetasol Halobetasol No Halobetaso Propionate Propionate l Propionate Chlorthalid Chlorthalid No Chlorthali one one done Hydrochloro Hydrochloro No Hydrochlor thiazide thiazide othiazide Chlorthalid Chlorthalid No Chlorthali one one done Anastrozole Anastrozole No Anastrozol e Losartan Losartan No Losartan Potassium Potassium Potassium Omeprazole Omeprazole No Omeprazole Halobetasol Halobetasol No Halobetaso Propionate Propionate l Propionate Hydrochloro Hydrochloro No Hydrochlor thiazide thiazide othiazide Diclofenac Diclofenac No Diclofenac Sodium Sodium Sodium Lidocaine-P Lidocaine-P No Lidocaine- rilocaine rilocaine Prilocaine Naproxen Naproxen No Naproxen Immunizations Ordered Immunization Filled Immunization Date Status Commen ts Source Name Name Hyalgan 20 mg Hyalgan 20 mg 2020-10-06 Completed [facility] 11:17:00 [facility] Hyalgan 20 mg Hyalgan 20 mg 2020-09-29 Completed [facility] 11:59: [facility] Hyalgan 20 mg Hyalgan 20 mg 2020-09-29 Completed [facility] 11:59:00 [facility] Hyalgan 20 mg Hyalgan 20 mg 2020-09-22 Completed [facility] 09:44:00 [facility] Hyalgan 20 mg Hyalgan 20 mg 2020-09-22 Completed [facility] 09:44:00 [facility] Hyalgan 20 mg Hyalgan 20 mg 2020-09-22 Completed [facility] 09:44:00 [facility] Bupivicaine Rincon Bupivicaine Rincon 2020-05-19 Completed [facility] 09:05:00 [facility] Bupivicaine Rincon Bupivicaine Rincon 2020-05-19 Completed [facility] 09:05:00 [facility] Bupivicaine Rincon Bupivicaine Rincon 2020-05-19 Completed [facility] 09:05:00 - [facility] Bupivicaine Rincon Bupivicaine Rincon 2020-05-19 Completed [facility] 09:05: [facility] Kenalog Kenalog 2020-05-19 Completed [facility] (Triamcinolone) (Triamcinolone) 09:04:00 - [facility] Kenalog Kenalog 2020-05-19 Completed [facility] (Triamcinolone) (Triamcinolone) 09:04:00 - [facility] Kenalog Kenalog 2020-05-19 Completed [facility] (Triamcinolone) (Triamcinolone) 09:04:00 - [facility] Kenalog Kenalog 2020-05-19 Completed [facility] (Triamcinolone) (Triamcinolone) 09:04:00 [facility] Kenalog Kenalog 2020-02-24 Completed [facility] (Triamcinolone) (Triamcinolone) 15:16:00 [facility] Kenalog Kenalog 2020-02-24 Completed [facility] (Triamcinolone) (Triamcinolone) 15:16:00 [facility] Kenalog Kenalog 2020-02-24 Completed [facility] (Triamcinolone) (Triamcinolone) 15:16:00 [facility] Kenalog Kenalog 2020-02-24 Completed [facility] (Triamcinolone) (Triamcinolone) 15:16:00 [facility] Bupivicaine Rincon Bupivicaine Rincon 2020-02-24 Completed [facility] 15:15: [facility] Bupivicaine Rincon Bupivicaine Rincon 2020-02-24 Completed [facility] 15:15:00 [facility] Bupivicaine Rincon Bupivicaine Rincon 2020-02-24 Completed [facility] 15:15:00 - [facility] Bupivicaine Rincon Bupivicaine Rincon 2020-02-24 Completed [facility] 15:15:00 - [facility] Depo Medrol (40mg) Depo Medrol (40mg) 2019-06-06 Completed [facility] 09:38:00 - [facility] Bupivicaine Rincon Bupivicaine Rincon 2019-06-06 Completed [facility] 09:38:00 - [facility] Depo Medrol (40mg) Depo Medrol (40mg) 2019-06-06 Completed [facility] 09:38:00 - [facility] Bupivicaine Rincon Bupivicaine Rincon 2019-06-06 Completed [facility] 09:38:00 - [facility] Depo Medrol (40mg) Depo Medrol (40mg) 2019-06-06 Completed [facility] 09:38:00 - [facility] Bupivicaine Rincon Bupivicaine Rincon 2019-06-06 Completed [facility] 09:38:00 - [facility] Depo Medrol (40mg) Depo Medrol (40mg) 2019-06-06 Completed [facility] 09:38:00 - [facility] Bupivicaine Rincon Bupivicaine Rincon 2019-06-06 Completed [facility] 09:38:00 - [facility] Vital Signs Vital Name Observation Time Observation Value Comments Source Systolic blood 2022-08-30 13:41:00 119 mm[Hg] [facility] Medicine Diastolic blood 2022-08-30 13:41:00 56 mm[Hg] [facility] Heart rate 2022-08-30 13:38:00 109 /min [facility] Respiratory rate 2022-08-30 13:38:00 16 /min [facility] Body height 2022-08-30 13:38:00 165.1 cm [facility] Body weight 2022-08-30 13:38:00 71.668 kg pt states [facility] BMI 2022-08-30 13:38:00 26.29 kg/m2 [facility] Oxygen saturation in 2022-08-30 13:38:00 98 /min [facility]terial blood by Medicine Pulse oximetry Systolic blood 2022-08-24 13:00:00 99 mm[Hg] [facility] pressure Medicine Diastolic blood 2022-08-24 13:00:00 55 mm[Hg] [facility] Heart rate 2022-08-24 13:00:00 91 /min [facility] Body temperature 2022-08-24 12:30:[address] [facility] Body height 2022-08-24 12:30:00 160 cm [facility] Body weight 2022-08-24 12:30:00 71.215 kg [facility] BMI 2022-08-24 12:30:00 27.81 kg/m2 [facility] HEIGHT 2022-08-18 10:40:00 160 cm WEIGHT 2022-08-18 10:40:00 68.04 kg HEIGHT 2022-08-18 10:40:00 160 cm WEIGHT 2022-08-18 10:40:00 68.04 kg HEIGHT 2022-08-18 10:40:00 160 cm WEIGHT 2022-08-18 10:40:00 68.04 kg height 2020-10-06 15:15:00 61.5 [in_i] [facility] weight 2020-10-06 15:15:00 157 [lb_av] [facility] temperature 2020-10-06 15:15:00 97.1 [degF] Common [facility] bmi 2020-10-06 15:15:00 29.18 kg/m2 Common [facility] blood pressure 2020-10-06 15:15:00 142 mm[Hg] [facility] - systolic [facility] blood pressure 2020-10-06 15:15:00 84 mm[Hg] [facility] - diastolic [facility] height 2020-09-29 11:15:00 61.5 [in_i] [facility] weight 2020-09-29 11:15:00 157 [lb_av] [facility] - [facility] temperature 2020-09-29 11:15:00 97.3 [degF] [facility] - [facility] bmi 2020-09-29 11:15:00 29.18 kg/m2 [facility] blood pressure 2020-09-29 11:15:00 144 mm[Hg] [facility] - systolic [facility] blood pressure 2020-09-29 11:15:00 84 mm[Hg] [facility] - diastolic [facility] height 2020-09-22 09:30:00 61.5 [in_i] [facility] weight 2020-09-22 09:30:00 157 [lb_av] [facility] temperature 2020-09-22 09:30:00 97.1 [degF] [facility] bmi 2020-09-22 09:30:00 29.18 kg/m2 [facility] - [facility] blood pressure 2020-09-22 09:30:00 160 mm[Hg] [facility] - systolic [facility] blood pressure 2020-09-22 09:30:00 84 mm[Hg] [facility] - diastolic [facility] height 2020-09-10 09:30:00 61.5 [in_i] [facility] weight 2020-09-10 09:30:00 157 [lb_av] [facility] bmi 2020-09-10 09:30:00 29.18 kg/m2 [facility] blood pressure 2020-09-10 09:30:00 134 mm[Hg] [facility] - systolic [facility] blood pressure 2020-09-10 09:30:00 72 mm[Hg] [facility] - diastolic [facility] Systolic blood 2022-08-18 12:18:00 116 mm[Hg] [facility] Diastolic blood 2022-08-18 12:18:00 53 mm[Hg] [facility] Heart rate 2022-08-18 12:18:00 91 /min [facility] Respiratory rate 2022-08-18 12:18:00 18 /min [facility] Oxygen saturation in 2022-08-18 12:18:00 100 /min [facility] Arterial blood by Medical Ce nter Pulse oximetry Body temperature 2022-08-18 10:40:00 36.72 Lovely [facility] Body height 2022-08-18 10:40:00 160 cm [facility] Body weight 2022-08-18 10:40:00 68.04 kg [facility] BMI 2022-08-18 10:40:00 26.57 kg/m2 [facility] Heart Rate 2022-06-17 16:38:41 [facility] Systolic (mm Hg) 2022-06-17 16:38:36 Sanya rial [place] Diastolic (mm Hg) 2022-06-17 16:38:36 Mem orial [place] Heart Rate 2022-06-17 16:38:36 [facility] [place] Heart Rate 2022-06-17 13:21:37 [facility] Systolic (mm Hg) 2022-06-17 13:21:31 Sanya rial [place] Diastolic (mm Hg) 2022-06-17 13:21:31 Mem orial [place] Temperature Oral (F) 2022-06-17 13:19:30 98.3 F [facility] [place] Respitory Rate 2022-06-17 12:55:00 Memori al [place] Temperature Oral (F) 2022-06-17 09:42:49 97.5 F [facility] Systolic (mm Hg) 2022-06-17 09:42:39 Sanya rial [place] Diastolic (mm Hg) 2022-06-17 09:42:39 Mem orial [place] Temperature Oral (F) 2022-06-17 05:57:22 97.5 F [facility] [place] Respitory Rate 2022-06-17 01:23:00 Memori al [place] Respitory Rate 2022-06-16 12:48:00 Mem[facility] al [place] Height 2022-06-13 19:35:00 162.56 cm [facility] [place] Weight 2022-06-13 19:35:00 [facility] [place] BMI Calculated 2022-06-13 19:35:00 Memori al [place] Respitory Rate 2022-06-13 11:35:00 Memori al [place] Respitory Rate 2022-06-13 11:00:00 Memori al [place] Systolic (mm Hg) 2022-06-13 11:00:00 Sanya rial [place] Diastolic (mm Hg) 2022-06-13 11:00:00 Mem orial [place] Respitory Rate 2022-06-13 10:00:00 Memori al [place] Systolic (mm Hg) 2022-06-13 10:00:00 Sanya rial [place] Diastolic (mm Hg) 2022-06-13 10:00:00 Mem orial [place] Systolic (mm Hg) 2022-06-13 09:14:00 Sanya rial [place] Diastolic (mm Hg) 2022-06-13 09:14:00 Mem orial [place] Temperature Oral (F) 2022-06-13 01:05:00 98.1 F [facility] Height 2022-06-13 00:20:00 165.1 cm [facility] BMI Calculated 2022-06-13 00:20:00 Adrianna benitez [facility] Weight 2022-06-13 00:20:00 [facility] Heart Rate 2022-06-13 00:20:00 [facility] Temperature Oral (F) 2022-06-13 00:20:00 98 F [facility] Procedures Procedure Date / Time Performing Clinician Source Performed CANCER ANTIGEN 125 2022-08-30 13:50:00 [facility] MAGNESIUM 2022-08-30 13:50:00 [facility] COMPREHENSIVE METABOLIC 2022-08-30 13:50:00 [facility] PANEL Medicine CBC W/AUTO DIFF WITH 2022-08-30 12:32:00 [facility] CBC W ABSOLUTE NEUTROPHIL 2022-08-30 06:39:00 [facility] COMPREHENSIVE METABOLIC 2022-08-30 06:39:00 [facility] PANEL [facility] PREPARE RBC 2022-08-26 23:54:00 Donis Vyas [facility] IR CV ACCESS FLUORO 2022-08-22 15:59:[address] [facility] IR PORT-A-CATH PLACEMENT 2022-08-22 15:59:00 Donis Vyas [facility] ANG U/S GUIDANCE FOR 2022-08-22 15:59:00 Donis Vyas [facility] VASCULAR ACCESS [facility] US THORACENTESIS 2022-08-18 11:57:00 Donis Vyas [facility] XR CHEST 1 VIEW PORTABLE / 2022-08-18 11:55:00 Arin Landry [facility] BEDSIDE [facility] CBC W/PLT COUNT & AUTO 2022-08-18 09:50:00 Arin Landry [facility] DIFFERENTIAL [facility] PROTHROMBIN TIME/INR 2022-08-18 09:50:00 Arin Landry [facility] CBC W/PLT COUNT & AUTO 2022-08-18 09:50:00 Arin Landry [facility] DIFFERENTIAL [facility] ELECTROCARDIOGRAM COMPLETE 2022-08-15 14:55:00 B [facility] CT ABDOMEN/PELVIS WITH IV 2022-08-03 16:46:00 Donis Vyas [facility] CONTRAST [facility] CT CHEST WITH IV CONTRAST 2022-08-03 16:46:00 [facility]IONAL 2022-08-03 15:35:49 [facility] EXTERNAL Medicine AMB REF TO CARDIOLOGY [facility] 2022-08-03 15:33:11 [facility] CANCER ANTIGEN 125 2022-08-03 14:42:00 [facility] CBC W/AUTO DIFF WITH 2022-08-03 14:42:00 [facility] COMPREHENSIVE METABOLIC 2022-08-03 14:42:00 [facility] PANEL Medicine CANCER ANTIGEN 125 2022-08-03 14:15:18 [facility] CBC W/AUTO DIFF WITH 2022-08-03 14:15:18 [facility] COMPREHENSIVE METABOLIC 2022-08-03 14:15:18 [facility] PANEL Medicine [id number] 2022-05-25 00:00:00 DEBORAH [facility] [id number] 2022-05-25 00:00:00 LEEGA [facility] [id number] 2022-05-25 00:00:00 PATMA.12 [facility] [id number] 2022-05-25 00:00:00 PATMA.12 [facility] [id number] 2022-05-18 00:00:00 RASSA [facility] [id number] 2022-05-18 00:00:00 RASSA [facility] [id number] 2022-05-18 00:00:00 RASSA [facility] [id number] 2022-05-18 00:00:00 RASSA [facility] Plan of Care Planned Activity Planned Date Details Comments Source Future Scheduled 2022-08-30 ZOSTER VACCINE (1 of [facility] Test 09:14:21 2) [code = ZOSTER Medicine VACCINE (1 of 2)] Future Scheduled 2022-08-30 FALL SCREEN [code = [facility] Test 09:14:21 FALL SCREEN] Medicine Future Scheduled 2022-08-30 Screening for [facility] Col [facility] of Test 09:14:21 osteoporosis Medicine (procedure) [code = [id number]] Future Scheduled 2022-08-30 FLU VACCINE > 6 MONTHS B [facility] Test 09:14:21 [code = FLU VACCINE > Medici ne 6 MONTHS] Future Scheduled 2022-08-30 COVID-19 Vaccine (#1) [facility] of Test 09:14:21 [code = COVID-19 Medicine Vaccine (#1)] Future Scheduled 2022-08-30 Pneumococcal 65+ (1 - Ba [facility] of Test 09:14:21 PCV) [code = Medicine Pneumococcal 65+ (1 - PCV)] Future Scheduled 2022-08-30 TETANUS SHOT (ADULT) [facility] Test 09:14:21 [code = TETANUS SHOT Medicin e (ADULT)] Future Scheduled 2022-08-30 BMI FOLLOW UP PLAN [facility] of Test 09:14:21 [code = BMI FOLLOW UP Medici ne PLAN] Future Scheduled 2022-08-24 COVID-19 Vaccine (#1) [facility] of Test 09:21:34 [code = COVID-19 Medicine Vaccine (#1)] Future Scheduled 2022-08-24 Pneumococcal 65+ (1 - Ba [facility] of Test 09:21:34 PCV) [code = Medicine Pneumococcal 65+ (1 - PCV)] Future Scheduled 2022-08-24 TETANUS SHOT (ADULT) [facility] Test 09:21:34 [code = TETANUS SHOT Medicin e (ADULT)] Future Scheduled 2022-08-24 BMI FOLLOW UP PLAN [facility] of Test 09:21:34 [code = BMI FOLLOW UP Medici ne PLAN] Future Scheduled 2022-08-24 ZOSTER VACCINE (1 of [facility] Test 09:21:34 2) [code = ZOSTER Medicine VACCINE (1 of 2)] Future Scheduled 2022-08-24 FALL SCREEN [code = [facility] Test 09:21:34 FALL SCREEN] Medicine Future Scheduled 2022-08-24 Screening for [facility] of Test 09:21:34 osteoporosis Medicine (procedure) [code = [id number]] Future Scheduled 2022-08-24 FLU VACCINE > 6 MONTHS B [facility] Test 09:21:34 [code = FLU VACCINE > Medici ne 6 MONTHS] Future Scheduled 2022-07-21 INFLUENZA VACCINE (#1) [facility] 00:[facility]00 [code = INFLUENZA Medical Ce nter VACCINE (#1)] Future Scheduled 2022-07-21 INFLUENZA VACCINE (#1) [facility] 00:00:00 [code = INFLUENZA Medical Ce nter VACCINE (#1)] Future Scheduled 2021-11-[address] [facility] Test 00:00:00 (12+) [code = Medical Center DEPRESSION SCREENING (12+)] Future Scheduled 2021-11-20 FALLS RISK SCREENING [facility] Test 00:00:00 [code = FALLS RISK Medical C enter SCREENING] Future Scheduled 2021-11-20 Medicare IPPE (WELCOME [facility] 00:00:00 TO MEDICARE) [code = Medical Center Medicare IPPE (WELCOME TO MEDICARE)] Future Scheduled 2021-11-[address] [facility] Test 00:00:00 (12+) [code = Medical Center DEPRESSION SCREENING (12+)] Future Scheduled 2021-11-[address]ISK SCREENING [facility] 00:00:00 [code = FALLS RISK Medical C enter SCREENING] Future Scheduled 2021-11-20 Medicare IPPE (WELCOME [facility] 00:00:00 TO MEDICARE) [code = Medical Center Medicare IPPE (WELCOME TO MEDICARE)] Future Scheduled 2000 PNEUMOCOCCAL 65+ YRS [facility] Test 00:00:00 (1 - PCV) [code = Medical Ce nter PNEUMOCOCCAL 65+ YRS (1 - PCV)] Future Scheduled 2000 PNEUMOCOCCAL 65+ YRS [facility] Test 00:00:00 (1 - PCV) [code = Medical Ce nter PNEUMOCOCCAL 65+ YRS (1 - PCV)] Future Scheduled 1985 SHINGLES VACCINES ([address] [facility] Test 00:00:00 of 2) [code = SHINGLES Medic al Center VACCINES (1 of 2)] Future Scheduled 1985 SHINGLES VACCINES ([address] [facility] Test 00:00:00 of 2) [code = SHINGLES Medic al Center VACCINES (1 of 2)] Future Scheduled 1954 DTAP/TDAP/TD [facility]ACCINES [facility] 00:00:00 (1 - Tdap) [code = Medical C enter DTAP/TDAP/TD VACCINES (1 - Tdap)] Future Scheduled 1954 DTAP/TDAP/TD VACCINES [facility] 00:00:00 (1 - Tdap) [code = Medical C enter DTAP/TDAP/TD VACCINES (1 - Tdap)] Future Scheduled 1935 COVID-19 VACCINE (#1) [facility] 00:00:00 [code = COVID-[address] VACCINE (#1)] Future Scheduled 1935 COVID-19 VACCINE (#1) [facility] 00:00:00 [code = COVID-[address] VACCINE (#1)] Encounters Start End Encounter Admission Attending Care Care Encounter Source Date/Time Date/Time Type Type Clinicians Facility Department ID 2022-08-21 Outpatient [facility] Surgery [id number] [facility] 21:50:53 2022-06-20 Outpatient [facility] [id number] [place] 11:40:57 [id number] [facility] 2022-06-16 Outpatient [facility] [id number] [place] 17:07:26 [id number] [facility] 2022-06-15 Outpatient [facility] [id number] [place] 16:25:36 [id number] [facility] 2022-05-18 Inpatient ADDY Ambrosio INTE.02 [id number] [facility] 14:24:00 Frank [id number] [facility] 2022-02-08 [facility] [id number] Common 16:02:01 [facility] 2021-12-15 [facility] [id number] Common 12:01:20 [id number] [facility] 2021-12-15 [facility] [id number] Common 11:54:02 [id number] [facility] 2022-08-30 2022-08-30 Outpatient [facility] [id number] [facility] 12:46:22 23:59:00 [facility] 2022-08-30 2022-08-30 Office DEBORAH Holloway [id number] [facility] 08:20:00 09:15:54 Visit Jose Lovett AMBULATOR [id number] College Y [id number] of [id number] [facility] rafael 375 e 2022-08-24 2022-08-24 Outpatient [facility] [id number] [facility] 00:00:00 23:59:00 [facility]in e 2022-08-24 2022-08-24 Office [facility] [id number] [facility] 07:03:08 10:10:49 Visit DONIS Lennon [id number] Co llege 0.2.7.2.686 of [id number] Medi rafael 520 e 2022-08-22 2022-08-22 [facility] Anthony [facility] [id number] 11:00:00 11:00:00 Encounter Donis Morgan [facility] 2022-08-22 2022-08-22 [facility] [id number] 08:52:00 09:31:00 Surgeon [facility] 2022-08-22 2022-08-22 [facility] [id number] 08:52:00 08:52:00 Encounter [facility] 2022-08-22 2022-08-22 Outpatient MARKOS VYAS [facility] [id number] [facility] 00:00:00 00:00:00 [place] 2022-08-18 2022-08-18 Outpatient MARKOS VYAS, SLE [facility] [id number] [facility] 09:33:59 23:59:00 [place] 2022-08-18 2022-08-18 [facility] [id number] 09:33:59 23:59:00 Encounter [facility] 2022-08-18 2022-08-18 [facility] [id number] 09:33:59 23:59:00 Encounter [facility] 2022-08-18 2022-08-18 Orders [facility] [id number] 09:45:00 10:00:00 Only [facility] 2022-08-18 2022-08-18 Outpatient MARKOS SLE SLE [id number] [facility]H 09:45:07 09:45:07 2022-08-15 2022-08-15 Outpatient DEBORAH SHARPE [facility] [id number] [facility] 14:14:24 15:12:10 ISAIAS Jaffe e of Medicin e 2022-08-15 2022-08-15 Outpatient [facility] BC [id number] [facility] 11:34:29 11:34:29 Ld e of Medicin e 2022-08-15 2022-08-15 Outside [facility] [id number] 00:00:00 00:00:00 Orders [facility] 2022-08-15 2022-08-15 [facility] [id number] 00:00:00 00:00:00 Orders [facility] 2022-08-09 2022-08-09 Orders Anthony [facility] [id number] 00:00:00 00:00:00 Only [facility] 2022-08-09 2022-08-09 Orders Anthony [facility] [id number] 00:00:00 00:00:00 Only [facility] 2022-08-03 2022-08-03 Outpatient MARKOS VYAS SLE SLE [id number] SLE 16:03:45 23:59:00 [place] 2022-08-03 2022-08-03 [facility] [id number] [facility] 16:03:45 23:59:00 [facility] 2022-08-03 2022-08-03 [facility] Donis Vyas [facility] [id number] [facility] 16:03:45 23:59:00 Encounter 1[facility] 2022-08-03 2022-08-03 [facility] [id number] [facility] 16:01:08 16:02:00 Encounter 1[facility] 2022-08-03 2022-08-03 Outpatient MARKOS VYAS SLEH SLE [id number] SLE 16:01:08 16:02:00 [place] 2022-08-03 2022-08-03 [facility] [id number] [facility] 16:01:08 16:02:00 Encounter 1[facility] 2022-08-03 2022-08-03 Outpatient ANTHONY [facility] [id number] [facility] 13:15:55 15:15:43 DONIS Betancourt Medicin mary 2022-08-03 2022-08-03 [facility] [id number] 00:00:00 00:00:00 Orders [facility] 2022-08-03 2022-08-03 Outside [facility], [facility] [id number] CH[facility] 00:00:00 00:00:00 Orders Donis [facility] 2022-07-13 2022-07-13 Outpatient SINGH, [facility] [id number] [place] 14:00:00 14:00:00 [facility] 2022-06-13 2022-06-17 Inpatient nullFlavo [facility] [id number] Memoria 00:20:04 22:00:00 r [place] 00 l [facility] 2022-06-13 2022-06-17 Inpatient nullFlavo [facility] [id number] Memoria 00:20:04 22:00:00 r Tomas 00 [facility] 2022-06-13 2022-06-17 Inpatient E HANSON, [facility] [address] [place] [id number] 01:02:00 17:00:00 [facility] 2022-06-12 2022-06-17 Outpatient Hanson, MHSE MHSE [id number] 19:20:04 17:00:00 Chapis 00 2022-06-12 2022-06-12 Outpatient Ganatrabril, MHSE MHSE [id number] 19:20:04 19:20:04 Nautam 00 [facility] 2022-06-03 2022-06-03 Outpatient Canales_M DMG DMG [id number] [facility] 07:17:00 07:17:00 0715 Medica l Group 2022-05-20 2022-05-26 Inpatient EM Ariella Shaffer HCACL INTE.02 [id number] [facility] 14:05:00 14:06:00 93 [facility] 2022-05-20 2022-05-26 Inpatient EM Indy, HCACL INTE.02 [id number] [facility] 14:05:00 14:06:00 Frank [id number] [facility] 2021-11-11 2021-11-11 Outpatient Canales_M DMG DMG [id number] [facility] 10:30:00 10:30:00 1223 Medica l Group 2021-05-17 2021-05-17 Outpatient Love-Mbayo VFP VFP [id number] [facility] 02:54:00 02:54:00 _A_AH [id number] Family Practic e 2021-02-22 2021-02-22 [facility] [id number] [facility] 11:38:00 11:38:00 0405 Medica l Group 2021-02-22 2021-02-22 Iliana DMG MA - [id number] D evoted 00:00:00 00:00:00 Mary Sheltona l Hollins, Health Group [place]: [id number] [facility] [address], [place] [address] , Ph. 2021-02-22 2021-02-22 Outpatient Hollins, BRAD BRAD [id number] 00:00:00 00:00:00 Iliana [id number] Mary [id number] 2021-02-19 2021-02-19 [facility] [id number] [facility] 11:15:00 11:15:00 0402 Medica l Group 2020-10-06 2020-10-06 (IN/ASP) STLC STLC [id number] C ommon 00:00:00 00:00:00 INJ ASP [facility] 2020-09-29 2020-09-29 (IN/ASP) [facility] [id number] C ommon 00:00:00 00:00:00 INJ [facility] 2020-09-22 2020-09-22 (IN/ASP) [facility] [id number] C ommon 00:00:00 00:00:00 INJ ASP [facility] 2020-09-10 2020-09-10 OFFICE [facility] [id number] Co mmon 00:00:00 00:00:00 VISIT EST Spir it PT LEVEL 3 - [facility] 2020-05-19 2020-05-19 Out[facility] [id number] Common 08:30:00 08:30:00 t [facility] 2020-04-30 2020-04-30 Outpatient Cachorro [facility] [id number] 11:59:00 11:59:00 _A_AH [id number] Family Practic e 2020-04-20 2020-04-20 Outpatient Cachorro [facility] [id number] 06:26:00 06:26:00 _A_AH [id number] Family Practic e 2020-03-30 2020-03-30 Outpatient Cachorro [facility] [id number] 02:45:00 02:45:00 _A_AH [id number] Family Practic e 2020-02-24 2020-02-24 Outpatient [facility] [id number] Common 14:30:00 14:30:00 t Bone Bone and Spiri t and Joint [facility] - [facility] 2020-02-18 2020-02-18 Rachel [facility] [place] - [id number] V illage 00:00:00 00:00:00 LoveJessie [facility] Fam ryan munguia [employer]: Medical - Practi c [address] VM_[email or web address]_V@_ e [facility], [address], [place] [address] , Ph. 2020-01-29 2020-01-29 Outpatient [facility] [id number] Common 14:19:00 14:19:00 t Bone Bone and Spiri t and Joint [facility] - [facility] 2020-01-28 2020-01-28 Outpatient [facility] [id number] Common 10:45:00 10:45:00 t Bone Bone and Spiri t and Joint [facility] - [facility] 2020-01-08 2020-01-08 Outpatient Cachorro [facility] [id number] 07:20:00 07:20:00 _A_AH [id number] Family Practic e 2019-06-12 2019-06-12 Outpatient [facility] [id number] Common 11:07:00 11:07:00 t Bone Bone and Spiri t and Joint [facility] - [facility] 2019-06-06 2019-06-06 Outpatient Lynne Batistat 26 [id number] Common 10:00:00 10:00:00 t Bone Bone and Spiri t and Joint Joint - [facility] 2019-05-20 2019-05-20 Outpatient Lynne Bhatt [id number] Common 09:30:00 09:30:00 t Bone Bone and Spiri t and Joint Joint - [facility] Results Test Description Test Time Test Comments Results Result Comments Source Prepare RBC 2022-08-26 23:54:00 Test Item Value Reference Range Interpretation Comme nts Unit ABO (test code = 0495102) O Pos UNIT NUMBER (test code = 934-0) [id number] Status (test code = 1227933) TX_TIMEINCHART Blood Bank Product (test code = 2263) RED BLOOD CELLS PRODUCT CODE (test code = 933-2) [id number] CROSSMATCH (test code = 2264) [facility] [id number] 07:43:00 [facility] 1935 Sex: FFINAL REPORT Right internal jugular chest port insertion History: Ovariancancer. Modality: Sonography and fluoroscopy. Sedation: Moderate sedation was administered. 1 mg ofVersed and 50 mcg of fentanyl IV was used for moderate sedation monitored under my direction. Total intra-service time of sedation was 30 minutes. The patient's vital signs were monitored throughout the procedure and recorded in the patient's medical record by the nurse. Metal Bond[employer] Crib Attendant: Lemuel Montilla MD Heel Reducer: None. Approach: Right internal jugular vein Estimated blood loss: < 5 cc. Specimen: None. Fluoroscopy Time: 0.4 min.Reference Air Kerma (Ka, r): 6.2 mGy. Technique: Informed written consent was obtained. Discussion of risks, benefits, and alternatives were made with the patient. Thepatient expressed understanding and agreed to proceed. A universal timeout was performed prior to starting the procedure. All elements maximal sterile barrier technique was utilized for this procedure,including utilization of sterile scrub solution for skin prep, a large sterile sheet to cover the are as of the patient that were not prepped, and hand hygiene, mask, head covering, and sterile gown forperforming radiologist and scrub technologist. The skin was anesthetized with 2% lidocaine. Ultrasound evaluation showed a patent and compressible right internal jugular vein, which was punctured underdirect real- time ultrasound guidance with a micropuncture needle. An ultrasound image was saved to PACS. A 0.018 inch wire was placed through the needle into the right atrium. A 4 Beninese micropuncture sheath was placed and a 0.035 wire was advanced into the IVC. A subcutaneous tunnel and pocket were created in the right anterior chest wall by blunt dissection. The pocket was flushed with antibiotic solution. A 6 Beninese Bard single lumen power injectable port was placed within the pocket and the catheter brought through the tunnel. The catheter was cut to appropriate length A peel-away sheath was placed in the right IJ vein and the catheter was advanced through the sheath, with its distal tip terminating in the cavoatrial junction. The peel-away sheath was removed. The port was flushed and aspirated easily following placement. The skin incision was closed with 3-0 Monocryl and Dermabond. The small jugular incision site was closed using Dermabond. The patient tolerated the procedure well and leftthe department in the same condition. Results: Spot radiograph of the chest demonstrates the new right IJ Port-A-Cath to lie in the expected position with its tip overlying the cavoatrial junction. Impression: Successful, uncomplicated placement of a right internal jugular chest port using sonographic and fluoroscopic guidance and conscious sedation. The port is ready for immediate use. Signed: Lemuel Montilla MDReport Verified Date/Time: 08/26/2022 07:43:31 Reading Location: [facility] P048 Angio Body Reading Room ANG, TUNNEL CATH CENTRAL INS W/PORT [id number] 07:43:00 [facility] 1935 Sex: FFINAL REPORT Right internal jugular chest port insertion History: Ovariancancer. Modality: Sonography and fluoroscopy. Sedation: Moderate sedation was administered. 1 mg of Versed and 50 mcg of fentanyl IV was used for moderate sedation monitored under my direction. Total intra-service time of sedation was 30 minutes. The patient's vital signs were monitored throughout theprocedure and recorded in the patient's medical record by the nurse. Metal Bonding Crib Attendant: Lemuel Montilla MD Heel Reducer: None. Approach: Right internal jugular vein Estimated blood loss: < 5 cc. Specimen:None. Fluoroscopy Time: 0.4 min.Reference Air Kerma (Ka, r): 6.2 mGy. Technique: Informed written consent was obtained. Discussion of risks, benefits, and alternatives were made with the patient. The patient expressed understanding and agreed to proceed. A universal timeout was performed prior to starting the procedure. All elements maximal sterile barrier technique was utilized for this procedure, including utilization of sterile scrub solution for skin prep, a large sterile sheet to cover the areas of the patient that were not prepped, and hand hygiene, mask, head covering, and sterile gown for performing radiologist and scrub technologist. The skin was anesthetized with 2% lidocaine. Ultrasoundevaluation showed a patent and compressible right internal jugular vein, which was punctured under direct real- time ultrasound guidance with a micropuncture needle. An ultrasound image was saved to PACS. A 0.018 inch wire was placed through the needle into the right atrium. A 4 Beninese micropuncture sheath was placed and a 0.035 wire was advanced into the IVC. A subcutaneous tunnel and pocket were created in the right anterior chest wall by blunt dissection. The pocket was flushed with antibiotic solution. A 6 Beninese Bard single lumen power injectable port was placed within the pocket and the catheter brought through the tunnel. The catheter was cut to appropriate length A peel-away sheath was placed in the right IJ vein and the catheter was advanced through the sheath, with its distal tip terminating in the cavoatrial junction. The peel-away sheath was removed. The port was flushed and aspiratedeasily following placement. The skin incision was closed with 3-0 Monocryl and Dermabond. The small jugular incision site was closed using Dermabond. The patient tolerated the procedure well and left the department in the same condition. Results: Spot radiograph of the chest demonstrates the new right IJ Port-A-Cath to lie in the expected position with its tip overlying the cavoatrial junction. Impression: Successful, uncomplicated placement of a right internal jugular chest port using sonographicand fluoroscopic guidance and conscious sedation. The port is ready for immediate use. Signed: Lemuel Montilla MDReport Verified Date/Time: 08/26/2022 07:43:31 Reading Location: [place] [address] Angio Body Reading Room [facility]S GUIDANCE FOR VASCULAR [id number] 07:43:00 [facility] KELLYALEKSANDAR VALDERRAMA : 1935 Sex: FFINAL REPORT Right internal jugular chest port insertion History: Ovarian cancer. Modality: Sonography and fluoroscopy. Sedation: Moderate sedation was administered. 1 mg of Versed and 50 mcg of fentanyl IV was used for moderate sedation monitored under my direction. Total intra-service time of sedation was 30 minutes. The patient's vital signs were monitored throughout the procedure and recorded in the patient's medical record by the nurse. Metal [employer]ing Crib Attendant: Lemuel Montilla MD Heel Reducer: None. Approach: Right internal jugular vein Estimated blood loss: < 5 cc. Specimen: None. Fluoroscopy Time: 0.4 min.Reference Air Kerma (Ka, r): 6.2 mGy. Technique: Informed written consent was obtained. Discussion of risks, benefits, and alternatives were made with the patient. The patient expressed understanding and agreed to proceed. A universal timeout was performed prior to starting the procedure. All elements maximal sterile barrier technique was utilized for this procedure, including utilization of sterile scrub solution for skin prep, a large sterile sheet to cover the area s of the patient that were not prepped, and hand hygiene, mask, head covering, and sterile gown for performing radiologist and scrub technologist. The skin was anesthetized with 2% lidocaine. Ultrasound evaluation showed a patent and compressible right internal jugular vein, which was punctured under direct real- time ultrasound guidance with a micropuncture needle. An ultrasound image was saved to PACS. A 0.018 inch wire was placed through the needle into the right atrium. A 4 Beninese micropuncture sheath was placed and a 0.035 wire was advanced into the IVC. A subcutaneous tunnel and pocket were created in the right anterior chest wall by blunt dissection. The pocket was flushed with antibiotic solution. A 6 Beninese Bard single lumen power injectable port was placed within the pocket and the catheter brought through the tunnel. The catheter was cut to appropriate length A peel-away sheath was placed in the right IJ vein and the catheter was advanced through the sheath, with its distal tip terminating in the cavoatrial junction. The peel-away sheath was removed. The port was flushed and aspirated easily following placement. The skin incision was closed with 3-0 Monocryl and Dermabond. The smalljugular incision site was closed using Dermabond. The patient tolerated the procedure well and left the department in the same condition. Results: Spot radiograph of the chest demonstrates the new right IJ Port-A-Cath to lie in the expected position with its tip overlying the cavoatrial junction. Impression: Successful, uncomplicated placement of a right internal jugular chest port using sonographicand fluoroscopic guidance and conscious sedation. The port is ready for immediate use. Signed: Lemuel Montilla Verified Date/Time: 08/26/2022 07:43:31 Reading Location: [address] Body Reading Room U/S, [id number] 17:37:00Malignant pleural effusion- needs right sided pleural effusion drainedNO CYTOLOGY NEEDED!Release to patient->ImmediateWhich [facility] / [facility] radiology location is preferred?->[facility] : 1935 Sex: FFINAL REPORT Ultrasound guided right thoracentesis. Clinical History: Right pleural effusion. Modality: Ultrasound. Sedation: None. Metal Bonding Crib Attendant: Arin Landry PA-C Heel Reducer: None. Estimated Blood Loss: 1cc Specimen: 800 cc of clear yellow fluid. Technique: Informed consent was obtained. The risks of pain, bleeding, infection, lung collapse/pneumothorax, injury to adjacent structures, and adverse medication [...] Post procedure chest x-ray demonstrated no pneumothorax. Impression:Successful and uncomplicated ultrasound guided right thoracentesis. Signed: Maurice Freedman MDReport Verified Date/Time: 08/18/2022 17:37:10 Reading Location: [address] Ultrasound Reading Room RAD, CHEST, 1 VIEW, NON [id number] 12:40:00Reason for exam:->s/p right thoraShould this be performed at the bedside?->YesIn US [facility] : 1935 Sex: FFINAL REPORT INDICATION: s/p right thora COMPARISON: None [...] pneumonia. 3.Small left pleural effusion. Signed: Horace AdamsortVerified Date/Time: 08/18/2022 12:40:12 Reading Location: [address] Reading Room PROTHROMBIN TIME/[id number] 10:35:53 Test Item Value Reference Range Interpretation Comments PROTIME (BEAKER) 15.2 seconds 11.9-14.2 H (test code = 759) INR (BEAKER) (test 1.22 See_Comment [Automat ed message] code = 370) The system [employer] generated this result transmitted ref erence range: <=5.90. The reference range was not used to int erpret this result as normal/abnormal . RECOMMENDED COUMADIN/WARFARIN INR THERAPY RANGESSTANDARD DOSE: 2.0 - 3.0 Includes: PROPHYLAXIS for venous thrombosis, systemic embolization; TREATMENT for venous thrombosis and/or pulmonary embolus.HIGH RISK: Target INR is 2.5-3.5 for patients with mechanical heart valves.CBC W/PLT COUNT & AUTO [id number] 10:18:44 Test Item Value Reference Range Interpretation [...] PERCENT (BEAKER) (test code = 2801) CT, [id number] 09:21:00Unlisted Reason for Exam - Click Yes and Enter Reason Below->YesUnlisted Reason for Exam->malignant neoplasm of both ovariesIs this for enterography?->NoWill this procedure require oral contras t?->Yes[facility] LUTHER KELLYALEKSANDAR VALDERRAMA : 1935 Sex: FFINAL REPORT CT of [...] oncologic history. Moderate-sized hiatal hernia. Signed: [facility] Verified Date/Time: 08/04/2022 09:21:00 Reading Location: [facility] [id number] Consult Reading Room CT, CHEST, WITH IV [id number] 09:21:00Unlisted Reason for Exam - Click Yes and Enter Reason Below->YesUnlisted Reason for Exam->malignant neoplasm of both ovaries [facility] 1935 Sex: FFINAL REPORT [...] Cravenort Verified Date/Time: 08/04/2022 09:21:00 Reading Location: [facility] [id number] Consult Reading Room CHEM [id number] 12:01:00 Test Item Value Reference Range Interpretation Comments Glucose Lvl (test code = Glucose Lvl) 104 70-[address] [facility]2022-07-29 12:01:00 Test Item Value Reference Range Interpretation Comments BUN (test code = BUN) 29 7-[address] [facility]2022-07-29 12:01:00 Test Item Value Reference Range Interpretation Comments Creatinine Lvl (test code = Creatinine 0.98 0.50-1.40 Lvl) [facility]2022-07-29 12:01:00 Test Item Value Reference Range Interpretation Comments Sodium Lvl (test code = Sodium Lvl) 133 135-[address] [facility]2022-07-29 12:01:00 Test Item Value Reference Range Interpretation Comments Potassium Lvl (test code = Potassium 2.7 3.5-5.1 Lvl) [facility]2022-07-29 12:01:00 Test Item Value Reference Range Interpretation Comments Chloride Lvl (test code = Chloride Lvl) 91 95-109 [place] [id number] 12:01:00 Test Item Value Reference Range Interpretation Comments CO2 (test code = CO2) 33 24-32 [place] 963442-07-29 12:01:00 Test Item Value Reference Range Interpretation Comments AGAP (test code = AGAP) 11.7 10.0-20.0 [place] 963442-07-29 12:01:00 Test Item Value Reference Range Interpretation Comments Calcium Lvl (test code = Calcium Lvl) 7.9 8.5-10.[address] [facility]2022-07-29 12:01:00 Test Item Value Reference Range Interpretation Comments eGFR (test code = eGFR) 56 [place] 963442-07-29 12:01:00 Test Item Value Reference Range Interpretation Comments Magnesium Lvl (test code = Magnesium 1.7 1.8-2.4 Lvl) [place] 963442-07-29 12:01:00 Test Item Value Reference Range Interpretation Comments Glucose Lvl (test code = Glucose Lvl) 104 70-99 [place] 963442-07-29 12:01:00 Test Item Value Reference Range Interpretation Comments BUN (test code = BUN) 29 7-22 [place] 963442-07-29 12:01:00 Test Item Value Reference Range Interpretation Comments Creatinine Lvl (test code = Creatinine 0.98 0.50-1.40 Lvl) [place] 963442-07-29 12:01:00 Test Item Value Reference Range Interpretation Comments Sodium Lvl (test code = Sodium Lvl) 133 135-[address] [facility]2022-07-29 12:01:00 Test Item Value Reference Range Interpretation Comments Potassium Lvl (test code = Potassium 2.7 3.5-5.1 Lvl) [place] 963442-07-29 12:01:00 Test Item Value Reference Range Interpretation Comments Chloride Lvl (test code = Chloride Lvl) 91 95-109 [place] 963442-07-29 12:01:00 Test Item Value Reference Range Interpretation Comments CO2 (test code = CO2) 33 24-32 [place] 963442-07-29 12:01:00 Test Item Value Reference Range Interpretation Comments AGAP (test code = AGAP) 11.7 10.0-20.0 [place] 963442-07-29 12:01:00 Test Item Value Reference Range Interpretation Comments Calcium Lvl (test code = Calcium Lvl) 7.9 8.5-10.5 [place] 963442-07-29 12:01:00 Test Item Value Reference Range Interpretation Comments eGFR (test code = eGFR) 56 [place] 963442-07-29 12:01:00 Test Item Value Reference Range Interpretation Comments Magnesium Lvl (test code = Magnesium 1.7 1.8-2.4 Lvl) [place] 963442-07-27 09:07:00 Test Item Value Reference Range Interpretation Comments Glucose Lvl (test code = Glucose Lvl) 108 70-99 [place] 963442-07-27 09:07:00 Test Item Value Reference Range Interpretation Comments BUN (test code = BUN) 29 7-22 [place] 963442-07-27 09:07:00 Test Item Value Reference Range Interpretation Comments Creatinine Lvl (test code = Creatinine 0.94 0.50-1.40 Lvl) [place] 963442-07-27 09:07:00 Test Item Value Reference Range Interpretation Comments Sodium Lvl (test code = Sodium Lvl) 131 135-145 [place] 963442-07-27 09:07:00 Test Item Value Reference Range Interpretation Comments Potassium Lvl (test code = Potassium 3.2 3.5-5.1 Lvl) [place] 963442-07-27 09:07:00 Test Item Value Reference Range Interpretation Comments Chloride Lvl (test code = Chloride Lvl) 93 95-109 [place] 963442-07-27 09:07:00 Test Item Value Reference Range Interpretation Comments CO2 (test code = CO2) 31 24-32 [place] 963442-07-27 09:07:00 Test Item Value Reference Range Interpretation Comments Calcium Lvl (test code = Calcium Lvl) 8.0 8.5-10.5 [place] 963442-07-27 09:07:00 Test Item Value Reference Range Interpretation Comments Total Protein (test code = Total 5.7 6.4-8.4 Protein) [place] 963442-07-27 09:07:00 Test Item Value Reference Range Interpretation Comments Albumin Lvl (test code = Albumin Lvl) 2.6 3.5-5.0 [facility] [employer] [id number] 09:07:00 Test Item Value Reference Range Interpretation Comments ALT (test code = ALT) 18 See_Comment [Auto mated message] The system which ge nerated this result transmit lavon reference range : <=65. The reference range was not used to interpr et this result as blayne l/abnormal. [facility] [employer] [id number] 09:07:00 Test Item Value Reference Range Interpretation Comments AST (test code = AST) 28 See_Comment [Auto mated message] The system which ge nerated this result transmit lavon reference range : <=37. The reference range was not used to interpr et this result as blayne l/abnormal. [facility] [employer] [id number] 09:07:00 Test Item Value Reference Range Interpretation Comments Alk Phos (test code = Alk Phos) 44 39-136 [facility] [employer] [id number] 09:07:00 Test Item Value Reference Range Interpretation Comments Bili Total (test code = Bili Total) 1.1 0.2-1.3 [facility] [employer] [id number] 09:07:00 Test Item Value Reference Range Interpretation Comments AGAP (test code = AGAP) 10.2 10.0-20.0 [facility] [employer] [id number] 09:07:00 Test Item Value Reference Range Interpretation Comments B/C Ratio (test code = B/C Ratio) 31 1 6-25 [facility] [employer] [id number] 09:07:00 Test Item Value Reference Range Interpretation Comments Globulin (test code = Globulin) 3.1 2.7-4.2 [facility] [employer] [id number] 09:07:00 Test Item Value Reference Range Interpretation Comments A/G Ratio (test code = A/G Ratio) 0.8 1 0.7-1.6 [facility] [employer] [id number] 09:07:00 Test Item Value Reference Range Interpretation Comments eGFR (test code = eGFR) 59 [facility]LXQBBJRMTN0448[facility]86-83 09:07:00 Test Item Value Reference Range Interpretation Comments WBC (test code = WBC) 7.2 3.7-10.4 [facility] CenterNxyhhixNWEEERGITU0100-74-06 09:07:00 Test Item Value Reference Range Interpretation Comments RBC (test code = RBC) 3.06 4.20-5.40 [place] 330032-07-27 09:07:00 Test Item Value Reference Range Interpretation Comments Hgb (test code = Hgb) 7.4 12.0-16.0 [place] 330032-07-27 09:07:00 Test Item Value Reference Range Interpretation Comments Hct (test code = Hct) 22.5 36.0-48.0 [place] 330032-07-27 09:07:00 Test Item Value Reference Range Interpretation Comments MCV (test code = MCV) 73.6 80.0-98.0 [place] 330032-07-27 09:07:00 Test Item Value Reference Range Interpretation Comments MCH (test code = MCH) 24.2 pg 27.0-31.0 [place] 330032-07-27 09:07:00 Test Item Value Reference Range Interpretation Comments MCHC (test code = MCHC) 32.9 32.0-36.0 [facility] [id number] 09:07:00 Test Item Value Reference Range Interpretation Comments RDW (test code = RDW) 20.8 11.5-14.5 [place] 330032-07-27 09:07:00 Test Item Value Reference Range Interpretation Comments Platelet (test code = Platelet) 286 133-450 [facility] CenterOitesphDYVGVDOPBF0193-26-04 09:07:00 Test Item Value Reference Range Interpretation Comments MPV (test code = MPV) 7.4 7.4-10.4 [place] 330032-07-27 09:07:00 Test Item Value Reference Range Interpretation Comments Segs (test code = Segs) 73.8 45.0-75.0 [place] 330032-07-27 09:07:00 Test Item Value Reference Range Interpretation Comments Lymphocytes (test code = Lymphocytes) 17.2 20.0-40.0 [place] 330032-07-27 09:07:00 Test Item Value Reference Range Interpretation Comments Monocytes (test code = Monocytes) 8.8 2.0-12.0 [place] 330032-07-27 09:07:00 Test Item Value Reference Range Interpretation Comments Neutrophils # (test code = Neutrophils 5.3 1.5-8.1 #) [facility] CenterGjpbgeeJTTKHKQZDT1268-80-08 09:07:00 Test Item Value Reference Range Interpretation Comments Lymphocytes # (test code = Lymphocytes 1.2 1.0-5.5 #) [place] 330032-07-27 09:07:00 Test Item Value Reference Range Interpretation Comments Monocytes # (test code 0.6 See_Comment [Aut omated message] The = Monocytes #) system which generated this result tra nsmitted reference range : <=0.8. The reference r hugo was not used to int erpret this result as normal/abnormal . [facility] CenterXawwehnXIVEDXUKUF8966-80-20 09:07:00 Test Item Value Reference Range Interpretation Comments Microcyte (test code = 1+ *ABN*(06/15/22 Microcyte) 4:07 AM) [facility]2022-07-27 09:07:00 Test Item Value Reference Range Interpretation Comments eGFR (test code = eGFR) 59 [facility] CenterAsnthruRVOUSZJYBB2045-01-55 09:07:00 Test Item Value Reference Range Interpretation Comments WBC (test code = WBC) 7.2 3.7-10.4 [place] 330032-07-27 09:07:00 Test Item Value Reference Range Interpretation Comments RBC (test code = RBC) 3.06 4.20-5.40 [facility] CenterDrsrmuzHGTHBLRAWQ8344-03-76 09:07:00 Test Item Value Reference Range Interpretation Comments Hgb (test code = Hgb) 7.4 12.0-16.0 [place] 330032-07-27 09:07:00 Test Item Value Reference Range Interpretation Comments Hct (test code = Hct) 22.5 36.0-48.0 [facility] CenterNqcyddgCSZLLIOOYR4527-17-84 09:07:00 Test Item Value Reference Range Interpretation Comments MCV (test code = MCV) 73.6 80.0-98.0 [place] 330032-07-27 09:07:00 Test Item Value Reference Range Interpretation Comments MCH (test code = MCH) 24.2 pg 27.0-31.0 [place] 330032-07-27 09:07:00 Test Item Value Reference Range Interpretation Comments MCHC (test code = MCHC) 32.9 32.0-36.0 [facility] CenterWvkkrjgPMVOLRPUUD3163-94-26 09:07:00 Test Item Value Reference Range Interpretation Comments RDW (test code = RDW) 20.8 11.5-14.5 [facility] CenterWnxaactTMMEYOMDKH9553-79-09 09:07:00 Test Item Value Reference Range Interpretation Comments Platelet (test code = Platelet) 286 133-450 [facility] CenterOnnancgERKYRDXPDQ6437-54-68 09:07:00 Test Item Value Reference Range Interpretation Comments MPV (test code = MPV) 7.4 7.4-10.4 [facility] CenterRklolgyBUXCGYJAKT9779-67-63 09:07:00 Test Item Value Reference Range Interpretation Comments Segs (test code = Segs) 73.8 45.0-75.0 [facility] CenterBbmrapqWQSVTCLQNL5213-16-74 09:07:00 Test Item Value Reference Range Interpretation Comments Lymphocytes (test code = Lymphocytes) 17.2 20.0-40.0 [place] 330032-07-27 09:07:00 Test Item Value Reference Range Interpretation Comments Monocytes (test code = Monocytes) 8.8 2.0-12.0 [facility] CenterGvbltnsLCLPNJXFHI1074-25-66 09:07:00 Test Item Value Reference Range Interpretation Comments Neutrophils # (test code = Neutrophils 5.3 1.5-8.1 #) [facility] CenterEyhockfOEFEDTPWMS0153-00-50 09:07:00 Test Item Value Reference Range Interpretation Comments Lymphocytes # (test code = Lymphocytes 1.2 1.0-5.5 #) [place] 330032-07-27 09:07:00 Test Item Value Reference Range Interpretation Comments Monocytes # (test code 0.6 See_Comment [Aut omated message] The = Monocytes #) system which generated this result tra nsmitted reference range : <=0.8. The reference r hugo was not used to int erpret this result as normal/abnormal . [facility] CenterJvtxusrTMTZSDREGH3154-83-75 09:07:00 Test Item Value Reference Range Interpretation Comments Microcyte (test code = 1+ *ABN*(06/15/22 Microcyte) 4:07 AM) [facility] [id number] 09:07:00 Test Item Value Reference Range Interpretation Comments Glucose Lvl (test code = Glucose Lvl) 108 70-99 [place] 963442-07-27 09:07:00 Test Item Value Reference Range Interpretation Comments BUN (test code = BUN) 29 7-22 [place] [address]-07-27 09:07:00 Test Item Value Reference Range Interpretation Comments Creatinine Lvl (test code = Creatinine 0.94 0.50-1.40 Lvl) [place] [address]-07-27 09:07:00 Test Item Value Reference Range Interpretation Comments Sodium Lvl (test code = Sodium Lvl) 131 135-145 [place] 963442-07-27 09:07:00 Test Item Value Reference Range Interpretation Comments Potassium Lvl (test code = Potassium 3.2 3.5-5.1 Lvl) [place] [address]-07-27 09:07:00 Test Item Value Reference Range Interpretation Comments Chloride Lvl (test code = Chloride Lvl) 93 95-109 [place] [address]-07-27 09:07:00 Test Item Value Reference Range Interpretation Comments CO2 (test code = CO2) 31 24-32 [place] 963442-07-27 09:07:00 Test Item Value Reference Range Interpretation Comments Calcium Lvl (test code = Calcium Lvl) 8.0 8.5-10.5 [place] [address]-07-27 09:07:00 Test Item Value Reference Range Interpretation Comments Total Protein (test code = Total 5.7 6.4-8.4 Protein) [place] [address]-07-27 09:07:00 Test Item Value Reference Range Interpretation Comments Albumin Lvl (test code = Albumin Lvl) 2.6 3.5-5.0 [place] [address]-07-27 09:07:00 Test Item Value Reference Range Interpretation Comments ALT (test code = ALT) 18 See_Comment [Auto mated message] The system which ge nerated this result transmit lavon reference range : <=65. The reference range was not used to interpr et this result as blayne l/abnormal. [place] [address]-07-27 09:07:00 Test Item Value Reference Range Interpretation Comments AST (test code = AST) 28 See_Comment [Auto mated message] The system which ge nerated this result transmit lavon reference range : <=37. The reference range was not used to interpr et this result as blayne l/abnormal. [place] 963442-07-27 09:07:00 Test Item Value Reference Range Interpretation Comments Alk Phos (test code = Alk Phos) 44 39-136 [place] 963442-07-27 09:07:00 Test Item Value Reference Range Interpretation Comments Bili Total (test code = Bili Total) 1.1 0.2-1.3 [place] 963442-07-27 09:07:00 Test Item Value Reference Range Interpretation Comments AGAP (test code = AGAP) 10.2 10.0-20.0 [place] [address]-07-27 09:07:00 Test Item Value Reference Range Interpretation Comments B/C Ratio (test code = B/C Ratio) 31 1 6-25 [place] [address]-07-27 09:07:00 Test Item Value Reference Range Interpretation Comments Globulin (test code = Globulin) 3.1 2.7-4.2 [place] 963442-07-27 09:07:00 Test Item Value Reference Range Interpretation Comments A/G Ratio (test code = A/G Ratio) 0.8 1 0.7-1.6 [place] [address]-07-26 18:34:00 Test Item Value Reference Range Interpretation Comments Monocytes (test code = Monocytes) 0.0 2.0-12.0 [place] [address]-07-26 18:34:00 Test Item Value Reference Range Interpretation Comments Neutrophils # (test code = Neutrophils 12.4 1.5-8.1 #) [place] [address]-07-26 18:34:00 Test Item Value Reference Range Interpretation Comments Lymphocytes # (test code = Lymphocytes 1.1 1.0-5.5 #) [place] [address]-07-26 18:34:00 Test Item Value Reference Range Interpretation Comments Monocytes # (test code 0.0 See_Comment [Aut omated message] The = Monocytes #) system which generated this result tra nsmitted reference range : <=0.8. The reference r hugo was not used to int erpret this result as normal/abnormal . [place] 330032-07-26 18:34:00 Test Item Value Reference Range Interpretation Comments Hypochrom (test code = 1+ (06/14/22 1:34 PM) Hypochrom) [place] 963442-07-26 18:34:00 Test Item Value Reference Range Interpretation Comments Glucose Lvl (test code = Glucose Lvl) 110 70-99 [place] 963442-07-26 18:34:00 Test Item Value Reference Range Interpretation Comments BUN (test code = BUN) 28 - [place] 963442-07-26 18:34:00 Test Item Value Reference Range Interpretation Comments Creatinine Lvl (test code = Creatinine 1.05 0.50-1.40 Lvl) [place] 963442-07-26 18:34:00 Test Item Value Reference Range Interpretation Comments Sodium Lvl (test code = Sodium Lvl) 132 135-145 [place] 963442-07-26 18:34:00 Test Item Value Reference Range Interpretation Comments Potassium Lvl (test code = Potassium 4.4 3.5-5.1 Lvl) [place] 963442-07-26 18:34:00 Test Item Value Reference Range Interpretation Comments Chloride Lvl (test code = Chloride Lvl) 96 95-109 [place] 963442-07-26 18:34:00 Test Item Value Reference Range Interpretation Comments CO2 (test code = CO2) 27 24-32 [place] 963442-07-26 18:34:00 Test Item Value Reference Range Interpretation Comments Calcium Lvl (test code = Calcium Lvl) 8.5 8.5-10.5 [place] 963442-07-26 18:34:00 Test Item Value Reference Range Interpretation Comments AGAP (test code = AGAP) 13.4 10.0-20.0 [place] 963442-07-26 18:34:00 Test Item Value Reference Range Interpretation Comments eGFR (test code = eGFR) 51 [place] 330032-07-26 18:34:00 Test Item Value Reference Range Interpretation Comments WBC (test code = WBC) 13.5 3.7-10.4 [place] 330032-07-26 18:34:00 Test Item Value Reference Range Interpretation Comments RBC (test code = RBC) 3.63 4.20-5.40 [place] 330032-07-26 18:34:00 Test Item Value Reference Range Interpretation Comments Hgb (test code = Hgb) 8.7 12.0-16.0 [place] 330032-07-26 18:34:00 Test Item Value Reference Range Interpretation Comments Hct (test code = Hct) 28.2 36.0-48.0 [place] [address]-07-26 18:34:00 Test Item Value Reference Range Interpretation Comments MCV (test code = MCV) 77.5 80.0-98.0 [place] [address]-07-26 18:34:00 Test Item Value Reference Range Interpretation Comments MCH (test code = MCH) 24.0 pg 27.0-31.0 [place] 330032-07-26 18:34:00 Test Item Value Reference Range Interpretation Comments MCHC (test code = MCHC) 30.9 32.0-36.0 [place] 330032-07-26 18:34:00 Test Item Value Reference Range Interpretation Comments RDW (test code = RDW) 21.2 11.5-14.5 [place] 330032-07-26 18:34:00 Test Item Value Reference Range Interpretation Comments Platelet (test code = Platelet) 324 133-450 [facility] [id number] 18:34:00 Test Item Value Reference Range Interpretation Comments MPV (test code = MPV) 7.6 7.4-10.4 [place] 330032-07-26 18:34:00 Test Item Value Reference Range Interpretation Comments Plt Morph (test code = Normal (06/14/22 1:34 Plt Morph) PM) [place] 330032-07-26 18:34:00 Test Item Value Reference Range Interpretation Comments Segs (test code = Segs) 89.0 45.0-75.0 [place] 330032-07-26 18:34:00 Test Item Value Reference Range Interpretation Comments Bands (test code = 3.0 See_Comment [Automat ed message] The Bands) system which ge nerated this result transmit lavon reference range : <=11.0. The reference r hugo was not used to interpr et this result as blayne l/abnormal. [place] 330032-07-26 18:34:00 Test Item Value Reference Range Interpretation Comments Lymphocytes (test code = Lymphocytes) 8.0 20.0-40.0 [place] [address]-07-26 18:34:00 Test Item Value Reference Range Interpretation Comments Monocytes (test code = Monocytes) 0.0 2.0-12.0 [place] [address]-07-26 18:34:00 Test Item Value Reference Range Interpretation Comments Neutrophils # (test code = Neutrophils 12.4 1.5-8.1 #) [place] [address]-07-26 18:34:00 Test Item Value Reference Range Interpretation Comments Lymphocytes # (test code = Lymphocytes 1.1 1.0-5.5 #) [place] [address]-07-26 18:34:00 Test Item Value Reference Range Interpretation Comments Monocytes # (test code 0.0 See_Comment [Aut omated message] The = Monocytes #) system which generated this result tra nsmitted reference range : <=0.8. The reference r hugo was not used to int erpret this result as normal/abnormal . [place] [address]-07-26 18:34:00 Test Item Value Reference Range Interpretation Comments Hypochrom (test code = 1+ (06/14/22 1:34 PM) Hypochrom) [place] [address]-07-26 18:34:00 Test Item Value Reference Range Interpretation Comments Glucose Lvl (test code = Glucose Lvl) 110 70-99 [place] [address]-07-26 18:34:00 Test Item Value Reference Range Interpretation Comments BUN (test code = BUN) 28 -22 [place] 963442-07-26 18:34:00 Test Item Value Reference Range Interpretation Comments Creatinine Lvl (test code = Creatinine 1.05 0.50-1.40 Lvl) [place] [address]-07-26 18:34:00 Test Item Value Reference Range Interpretation Comments Sodium Lvl (test code = Sodium Lvl) 132 135-145 [place] 963442-07-26 18:34:00 Test Item Value Reference Range Interpretation Comments Potassium Lvl (test code = Potassium 4.4 3.5-5.1 Lvl) [address]07-26 18:34:00 Test Item Value Reference Range Interpretation Comments Chloride Lvl (test code = Chloride Lvl) 96 95-109 [place] 963442-07-26 18:34:00 Test Item Value Reference Range Interpretation Comments CO2 (test code = CO2) 27 24-32 [place] 963442-07-26 18:34:00 Test Item Value Reference Range Interpretation Comments Calcium Lvl (test code = Calcium Lvl) 8.5 8.5-10.5 [place] 963442-07-26 18:34:00 Test Item Value Reference Range Interpretation Comments AGAP (test code = AGAP) 13.4 10.0-20.0 [place] [address]-07-26 18:34:00 Test Item Value Reference Range Interpretation Comments eGFR (test code = eGFR) 51 [place] 330032-07-26 18:34:00 Test Item Value Reference Range Interpretation Comments WBC (test code = WBC) 13.5 3.7-10.4 [place] 330032-07-26 18:34:00 Test Item Value Reference Range Interpretation Comments RBC (test code = RBC) 3.63 4.20-5.40 [place] 330032-07-26 18:34:00 Test Item Value Reference Range Interpretation Comments Hgb (test code = Hgb) 8.7 12.0-16.0 [place] 33[address]-07-26 18:34:00 Test Item Value Reference Range Interpretation Comments Hct (test code = Hct) 28.2 36.0-48.0 [place] [address]-07-26 18:34:00 Test Item Value Reference Range Interpretation Comments MCV (test code = MCV) 77.5 80.0-98.0 [place] [address]-07-26 18:34:00 Test Item Value Reference Range Interpretation Comments MCH (test code = MCH) 24.0 pg 27.0-31.0 [place] [address]-07-26 18:34:00 Test Item Value Reference Range Interpretation Comments MCHC (test code = MCHC) 30.9 32.0-36.0 [place] [address]-07-26 18:34:00 Test Item Value Reference Range Interpretation Comments RDW (test code = RDW) 21.2 11.5-14.5 [place] 330032-07-26 18:34:00 Test Item Value Reference Range Interpretation Comments Platelet (test code = Platelet) 324 133-450 [facility] [id number] 18:34:00 Test Item Value Reference Range Interpretation Comments MPV (test code = MPV) 7.6 7.4-10.4 [facility] CenterPjotpmzGUAZSRQKSV4415-07-01 18:34:00 Test Item Value Reference Range Interpretation Comments Plt Morph (test code = Normal (06/14/22 1:34 Plt Morph) PM) [facility] CenterWogfrntENDBAUFNPL6429-90-46 18:34:00 Test Item Value Reference Range Interpretation Comments Segs (test code = Segs) 89.0 45.0-75.0 [facility] C[id number] 18:34:00 Test Item Value Reference Range Interpretation Comments Bands (test code = 3.0 See_Comment [Automat ed message] The Bands) system which ge nerated this result transmit lavon reference range : <=11.0. The reference r hugo was not used to interpr et this result as blayne l/abnormal. [facility] CenterOigfynnOWAFHBDWHL7290-05-41 18:34:00 Test Item Value Reference Range Interpretation Comments Lymphocytes (test code = Lymphocytes) 8.0 20.0-40.0 [facility]2022-07-25 15:00:00 Test Item Value Reference Range Interpretation Comments Albumin BF (test code = Albumin BF) 0.6 [facility]2022-07-25 15:00:00 Test Item Value Reference Range Interpretation Comments Alb BF Type (test Pleural *NA*(06/13/22 code = Alb BF Type) 10:00 AM) [facility]2022-07-25 15:00:00 Test Item Value Reference Range Interpretation Comments CellCnt BF Type (test Thoracen (06/13/22 10:00 code = CellCnt BF AM) Type) [facility]2022-07-25 15:00:00 Test Item Value Reference Range Interpretation Comments Color BF (test code = Yellow (06/13/22 10:00 Color BF) AM) [facility]2022-07-25 15:00:00 Test Item Value Reference Range Interpretation Comments Clarity BF (test code = Clear (06/13/22 10:00 Clarity BF) AM) [facility]2022-07-25 15:00:00 Test Item Value Reference Range Interpretation Comments Supernat BF (test code = Yellow *ABN*(06/13/22 Supernat BF) 10:00 AM) [facility]2022-07-25 15:00:00 Test Item Value Reference Range Interpretation Comments Nucleated Cells BF (test code = 273 Nucleated Cells BF) [facility]2022-07-25 15:00:00 Test Item Value Reference Range Interpretation Comments RBC BF (test code = RBC BF) 419 [facility]2022-07-25 15:00:00 Test Item Value Reference Range Interpretation Comments Neutrophils BF (test code = Neutrophils 10 BF) [facility]2022-07-25 15:00:00 Test Item Value Reference Range Interpretation Comments Lymph BF (test code = Lymph BF) 36 [facility]2022-07-25 15:00:00 Test Item Value Reference Range Interpretation Comments Macrophage BF (test code = Macrophage 48 BF) [facility]2022-07-25 15:00:00 Test Item Value Reference Range Interpretation Comments Meso BF (test code = Meso BF) 6 [facility]2022-07-25 15:00:00 Test Item Value Reference Range Interpretation Comments Comment BF (test Differential confirmed. code = Comment BF) mesothlial cells and mixed inflammation. performed by Dr. Rosendo Chapa [facility]2022-07-25 15:00:00 Test Item Value Reference Range Interpretation Comments Glucose BF (test code = Glucose BF) 154 [facility]2022-07-25 15:00:00 Test Item Value Reference Range Interpretation Comments Gluc BF Type (test Pleural *NA*(06/13/22 code = Gluc BF Type) 10:00 AM) [facility]2022-07-25 15:00:00 Test Item Value Reference Range Interpretation Comments LDH BF (test code = LDH BF) 74 [facility]2022-07-25 15:00:00 Test Item Value Reference Range Interpretation Comments LDH BF Type (test Pleural *NA*(06/13/22 code = LDH BF Type) 10:00 AM) [facility]2022-07-25 15:00:00 Test Item Value Reference Range Interpretation Comments pH BF Type (test code Pleural (06/13/22 10:00 = pH BF Type) AM) [facility]2022-07-25 15:00:00 Test Item Value Reference Range Interpretation Comments pH BF (test code = pH BF) 8.00 1 [facility] [id number] 15:00:00 Test Item Value Reference Range Interpretation Comments Protein BF (test code = Protein BF) 1.0 [facility] [id number] 15:00:00 Test Item Value Reference Range Interpretation Comments Prot BF Type (test Pleural *NA*(06/13/22 code = Prot BF Type) 10:00 AM) [facility] [id number] 15:00:00 Test Item Value Reference Range Interpretation Comments Gram Stain Report Few WBC's No Organisms (test code = Gram Seen Stain Report) [facility] CenterCulture: Aspirate/Body Fluid/[id number] 15:00:00 Test Item Value Reference Range Interpretation Comments Culture: Aspirate/Body Fluid/Tissue No Growth (test code = Culture: Aspirate/Body Fluid/Tissue) [facility]2022-07-25 15:00:00 Test Item Value Reference Range Interpretation Comments Albumin BF (test code = Albumin BF) 0.6 [facility]2022-07-25 15:00:00 Test Item Value Reference Range Interpretation Comments Alb BF Type (test Pleural *NA*(06/13/22 code = Alb BF Type) 10:00 AM) [facility]2022-07-25 15:00:00 Test Item Value Reference Range Interpretation Comments CellCnt BF Type (test Thoracen (06/13/22 10:00 code = CellCnt BF AM) Type) [facility]2022-07-25 15:00:00 Test Item Value Reference Range Interpretation Comments Color BF (test code = Yellow (06/13/22 10:00 Color BF) AM) [facility]2022-07-25 15:00:00 Test Item Value Reference Range Interpretation Comments Clarity BF (test code = Clear (06/13/22 10:00 Clarity BF) AM) [facility]2022-07-25 15:00:00 Test Item Value Reference Range Interpretation Comments Supernat BF (test code = Yellow *ABN*(06/13/22 Supernat BF) 10:00 AM) [facility]2022-07-25 15:00:00 Test Item Value Reference Range Interpretation Comments Nucleated Cells BF (test code = 273 Nucleated Cells BF) [facility]2022-07-25 15:00:00 Test Item Value Reference Range Interpretation Comments RBC BF (test code = RBC BF) 419 [facility]2022-07-25 15:00:00 Test Item Value Reference Range Interpretation Comments Neutrophils BF (test code = Neutrophils 10 BF) [facility]2022-07-25 15:00:00 Test Item Value Reference Range Interpretation Comments Lymph BF (test code = Lymph BF) 36 [facility]2022-07-25 15:00:00 Test Item Value Reference Range Interpretation Comments Macrophage BF (test code = Macrophage 48 BF) [facility]2022-07-25 15:00:00 Test Item Value Reference Range Interpretation Comments Meso BF (test code = Meso BF) 6 [facility]2022-07-25 15:00:00 Test Item Value Reference Range Interpretation Comments Comment BF (test Differential confirmed. code = Comment BF) mesothlial cells and mixed inflammation. performed by Dr. Rosendo Chapa [facility]2022-07-25 15:00:00 Test Item Value Reference Range Interpretation Comments Glucose BF (test code = Glucose BF) 154 [facility]2022-07-25 15:00:00 Test Item Value Reference Range Interpretation Comments Gluc BF Type (test Pleural *NA*(06/13/22 code = Gluc BF Type) 10:00 AM) [facility]2022-07-25 15:00:00 Test Item Value Reference Range Interpretation Comments LDH BF (test code = LDH BF) 74 [facility]2022-07-25 15:00:00 Test Item Value Reference Range Interpretation Comments LDH BF Type (test Pleural *NA*(06/13/22 code = LDH BF Type) 10:00 AM) [facility]2022-07-25 15:00:00 Test Item Value Reference Range Interpretation Comments pH BF Type (test code Pleural (06/13/22 10:00 = pH BF Type) AM) [facility]2022-07-25 15:00:00 Test Item Value Reference Range Interpretation Comments pH BF (test code = pH BF) 8.00 1 [facility]2022-07-25 15:00:00 Test Item Value Reference Range Interpretation Comments Protein BF (test code = Protein BF) 1.0 [facility] [id number] 15:00:00 Test Item Value Reference Range Interpretation Comments Prot BF Type (test Pleural *NA*(06/13/22 code = Prot BF Type) 10:00 AM) [facility] [id number] 15:00:00 Test Item Value Reference Range Interpretation Comments Gram Stain Report Few WBC's No Organisms (test code = Gram Seen Stain Report) [facility]Culture: Aspirate/Body Fluid/[id number] 15:00:00 Test Item Value Reference Range Interpretation Comments Culture: Aspirate/Body Fluid/Tissue No Growth (test code = Culture: Aspirate/Body Fluid/Tissue) [facility] LakeMobspireCARMoovlyAC [id number] 08:03:00 Test Item Value Reference Range Interpretation Comments HS Troponin I 1 Hr (test code = HS 50 Troponin I 1 Hr) [facility] LakeSocrates Health SolutionsAC [id number] 08:03:00 Test Item Value Reference Range Interpretation Comments HS Troponin I 0 to 1 See Note 5(06/13/22 Hour Delta (test code = 3:03 AM) HS Troponin I 0 to 1 Hour Delta) [facility] [employer] [id number] 08:03:00 Test Item Value Reference Range Interpretation Comments Glucose Lvl (test code = Glucose Lvl) 142 70-99 [facility] [employer] [id number] 08:03:00 Test Item Value Reference Range Interpretation Comments BUN (test code = BUN) 21 06-10 [facility] [employer] [id number] 08:03:00 Test Item Value Reference Range Interpretation Comments Creatinine Lvl (test code = Creatinine 0.84 0.50-1.40 Lvl) [facility] [employer] [id number] 08:03:00 Test Item Value Reference Range Interpretation Comments Sodium Lvl (test code = Sodium Lvl) 133 135-145 [facility] [employer] [id number] 08:03:00 Test Item Value Reference Range Interpretation Comments Potassium Lvl (test code = Potassium 4.4 3.5-5.1 Lvl) [facility] [employer] [id number] 08:03:00 Test Item Value Reference Range Interpretation Comments Chloride Lvl (test code = Chloride Lvl) 98 95-109 [place] 963442-07-25 08:03:00 Test Item Value Reference Range Interpretation Comments CO2 (test code = CO2) 25 24-32 [place] 963442-07-25 08:03:00 Test Item Value Reference Range Interpretation Comments AGAP (test code = AGAP) 14.4 10.0-20.0 [place] 963442-07-25 08:03:00 Test Item Value Reference Range Interpretation Comments Calcium Lvl (test code = Calcium Lvl) 9.1 8.5-10.5 [place] 963442-07-25 08:03:00 Test Item Value Reference Range Interpretation Comments B/C Ratio (test code = B/C Ratio) 25 1 6-25 [facility] CenterGlobal Nano Products [id number] 08:03:00 Test Item Value Reference Range Interpretation Comments Total Protein (test code = Total 6.7 6.4-8.4 Protein) [place] 963442-07-25 08:03:00 Test Item Value Reference Range Interpretation Comments Albumin Lvl (test code = Albumin Lvl) 3.2 3.5-5.0 [place] 963442-07-25 08:03:00 Test Item Value Reference Range Interpretation Comments Globulin (test code = Globulin) 3.5 2.7-4.2 [facility] [id number] 08:03:00 Test Item Value Reference Range Interpretation Comments A/G Ratio (test code = A/G Ratio) 0.9 1 0.7-1.6 [place] 963442-07-25 08:03:00 Test Item Value Reference Range Interpretation Comments ALT (test code = ALT) 19 See_Comment [Auto mated message] The system which ge nerated this result transmit lavon reference range : <=65. The reference range was not used to interpr et this result as blayne l/abnormal. [facility] [id number] 08:03:00 Test Item Value Reference Range Interpretation Comments AST (test code = AST) 26 See_Comment [Auto mated message] The system which ge nerated this result transmit lavon reference range : <=37. The reference range was not used to interpr et this result as blayne l/abnormal. [facility] [id number] 08:03:00 Test Item Value Reference Range Interpretation Comments Alk Phos (test code = Alk Phos) 56 39-136 [place] 963442-07-25 08:03:00 Test Item Value Reference Range Interpretation Comments Bili Total (test code = Bili Total) 1.0 0.2-1.3 [place] 963442-07-25 08:03:00 Test Item Value Reference Range Interpretation Comments eGFR (test code = eGFR) 67 [place] 963442-07-25 08:03:00 Test Item Value Reference Range Interpretation Comments Magnesium Lvl (test code = Magnesium 1.9 1.8-2.4 Lvl) [place] 963442-07-25 08:03:00 Test Item Value Reference Range Interpretation Comments Procalcitonin Lvl (test no gt See_Comment [Au tomated message] code = Procalcitonin Lvl) e system which generated this result transmitted ref erence range: <=0.10. The reference range was not used to interpr et this result as normal/abnormal . [place] 963442-07-25 08:03:00 Test Item Value Reference Range Interpretation Comments LDH (test code = LDH) 354 98-192 [place] [address]-07-25 08:03:00 Test Item Value Reference Range Interpretation Comments WBC (test code = WBC) 7.5 3.7-10.4 [place] [address]-07-25 08:03:00 Test Item Value Reference Range Interpretation Comments RBC (test code = RBC) 3.44 4.20-5.40 [place] [address]-07-25 08:03:00 Test Item Value Reference Range Interpretation Comments Hgb (test code = Hgb) 8.3 12.0-16.0 [place] [address]-07-25 08:03:00 Test Item Value Reference Range Interpretation Comments Hct (test code = Hct) 26.2 36.0-48.0 [place] [address]-07-25 08:03:00 Test Item Value Reference Range Interpretation Comments MCV (test code = MCV) 76.1 80.0-98.0 [place] [address]-07-25 08:03:00 Test Item Value Reference Range Interpretation Comments MCH (test code = MCH) 24.0 pg 27.0-31.0 [place] 330032-07-25 08:03:00 Test Item Value Reference Range Interpretation Comments MCHC (test code = MCHC) 31.6 32.0-36.0 [place] 330032-07-25 08:03:00 Test Item Value Reference Range Interpretation Comments RDW (test code = RDW) 20.9 11.5-14.5 [place] 330032-07-25 08:03:00 Test Item Value Reference Range Interpretation Comments Platelet (test code = Platelet) 289 133-450 [place] 330032-07-25 08:03:00 Test Item Value Reference Range Interpretation Comments MPV (test code = MPV) 7.5 7.4-10.4 [place] [address]-07-25 08:03:00 Test Item Value Reference Range Interpretation Comments Segs (test code = Segs) 94.0 45.0-75.0 [place] 330032-07-25 08:03:00 Test Item Value Reference Range Interpretation Comments Lymphocytes (test code = Lymphocytes) 4.3 20.0-40.0 [place] 33[address]-07-25 08:03:00 Test Item Value Reference Range Interpretation Comments Monocytes (test code = Monocytes) 1.6 2.0-12.0 [place] [address]-07-25 08:03:00 Test Item Value Reference Range Interpretation Comments Basophils (test code = 0.1 See_Comment [Aut omated message] The Basophils) system which ge nerated this result tra nsmitted reference range : <=1.0. The reference r hugo was not used to int erpret this result as normal/abnormal . [facility] [id number] 08:03:00 Test Item Value Reference Range Interpretation Comments Neutrophils # (test code = Neutrophils 7.0 1.5-8.1 #) [place] [address]0032-07-25 08:03:00 Test Item Value Reference Range Interpretation Comments Lymphocytes # (test code = Lymphocytes 0.3 1.0-5.5 #) [place] [address]0032-07-25 08:03:00 Test Item Value Reference Range Interpretation Comments Monocytes # (test code 0.1 See_Comment [Aut omated message] The = Monocytes #) system which generated this result tra nsmitted reference range : <=0.8. The reference r hugo was not used to int erpret this result as normal/abnormal . [id number] 08:03:00 Test Item Value Reference Range Interpretation Comments Microcyte (test code = 1+ *ABN*(06/13/22 Microcyte) 3:03 AM) [facility] [id number] 08:03:00 Test Item Value Reference Range Interpretation Comments HS Troponin I 1 Hr (test code = HS 50 Troponin I 1 Hr) [facility] [id number] 08:03:00 Test Item Value Reference Range Interpretation Comments HS Troponin I 0 to 1 See Note 5(06/13/22 Hour Delta (test code = 3:03 AM) HS Troponin I 0 to 1 Hour Delta) [facility]2022-07-25 08:03:00 Test Item Value Reference Range Interpretation Comments Glucose Lvl (test code = Glucose Lvl) 142 70-[address] [facility]2022-07-25 08:03:00 Test Item Value Reference Range Interpretation Comments BUN (test code = BUN) 21 06-[address] [facility]2022-07-25 08:03:00 Test Item Value Reference Range Interpretation Comments Creatinine Lvl (test code = Creatinine 0.84 0.50-1.40 Lvl) [facility]2022-07-25 08:03:00 Test Item Value Reference Range Interpretation Comments Sodium Lvl (test code = Sodium Lvl) 133 135-[address] [facility]2022-07-25 08:03:00 Test Item Value Reference Range Interpretation Comments Potassium Lvl (test code = Potassium 4.4 3.5-5.1 Lvl) [facility]2022-07-25 08:03:00 Test Item Value Reference Range Interpretation Comments Chloride Lvl (test code = Chloride Lvl) 98 95-[address] [facility]2022-07-25 08:03:00 Test Item Value Reference Range Interpretation Comments CO2 (test code = CO2) 25 24-[address] [facility]2022-07-25 08:03:00 Test Item Value Reference Range Interpretation Comments AGAP (test code = AGAP) 14.4 10.0-20.0 [place] 963442-07-25 08:03:00 Test Item Value Reference Range Interpretation Comments Calcium Lvl (test code = Calcium Lvl) 9.1 8.5-10.5 [facility] Lake[facility]obspireJUST[place] [id number] 08:03:00 Test Item Value Reference Range Interpretation Comments B/C Ratio (test code = B/C Ratio) 25 1 6-25 [facility] [id number] 08:03:00 Test Item Value Reference Range Interpretation Comments Total Protein (test code = Total 6.7 6.4-8.4 Protein) [facility] LakeMobspireJUST[place] [id number] 08:03:00 Test Item Value Reference Range Interpretation Comments Albumin Lvl (test code = Albumin Lvl) 3.2 3.5-5.0 [facility] [id number] 08:03:00 Test Item Value Reference Range Interpretation Comments Globulin (test code = Globulin) 3.5 2.7-4.2 [facility] [id number] 08:03:00 Test Item Value Reference Range Interpretation Comments A/G Ratio (test code = A/G Ratio) 0.9 1 0.7-1.6 [facility] [id number] 08:03:00 Test Item Value Reference Range Interpretation Comments ALT (test code = ALT) 19 See_Comment [Auto mated message] The system which ge nerated this result transmit lavon reference range : <=65. The reference range was not used to interpr et this result as blayne l/abnormal. [facility] [id number] 08:03:00 Test Item Value Reference Range Interpretation Comments AST (test code = AST) 26 See_Comment [Auto mated message] The system which ge nerated this result transmit lavon reference range : <=37. The reference range was not used to interpr et this result as blayne l/abnormal. [facility] [facility] [employer] [id number] 08:03:00 Test Item Value Reference Range Interpretation Comments Alk Phos (test code = Alk Phos) 56 39-136 [facility] [id number] 08:03:00 Test Item Value Reference Range Interpretation Comments Bili Total (test code = Bili Total) 1.0 0.2-1.3 [facility] [id number] 08:03:00 Test Item Value Reference Range Interpretation Comments eGFR (test code = eGFR) [address] [facility]2022-07-25 08:03:00 Test Item Value Reference Range Interpretation Comments Magnesium Lvl (test code = Magnesium 1.9 1.8-2.4 Lvl) [place] 963442-07-25 08:03:00 Test Item Value Reference Range Interpretation Comments Procalcitonin Lvl (test no gt See_Comment [Au tomated message] code = Procalcitonin Lvl) e system which generated this result transmitted ref erence range: <=0.10. The reference range was not used to interpr et this result as normal/abnormal . [place] 963442-07-25 08:03:00 Test Item Value Reference Range Interpretation Comments LDH (test code = LDH) 354 98-192 [place] 330032-07-25 08:03:00 Test Item Value Reference Range Interpretation Comments WBC (test code = WBC) 7.5 3.7-10.4 [place] 330032-07-25 08:03:00 Test Item Value Reference Range Interpretation Comments RBC (test code = RBC) 3.44 4.20-5.40 [place] 330032-07-25 08:03:00 Test Item Value Reference Range Interpretation Comments Hgb (test code = Hgb) 8.3 12.0-16.0 [place] [address]-07-25 08:03:00 Test Item Value Reference Range Interpretation Comments Hct (test code = Hct) 26.2 36.0-48.0 [place] 330032-07-25 08:03:00 Test Item Value Reference Range Interpretation Comments MCV (test code = MCV) 76.1 80.0-98.0 [place] [address]-07-25 08:03:00 Test Item Value Reference Range Interpretation Comments MCH (test code = MCH) 24.0 pg 27.0-31.0 [place] [address]-07-25 08:03:00 Test Item Value Reference Range Interpretation Comments MCHC (test code = MCHC) 31.6 32.0-36.0 [place] [address]-07-25 08:03:00 Test Item Value Reference Range Interpretation Comments RDW (test code = RDW) 20.9 11.5-14.5 [place] 330032-07-25 08:03:00 Test Item Value Reference Range Interpretation Comments Platelet (test code = Platelet) 289 133-450 [facility]ObtuwsjXMGVPRFJZU3491-78-39 08:03:00 Test Item Value Reference Range Interpretation Comments MPV (test code = MPV) 7.5 7.4-10.4 [place] 330032-07-25 08:03:00 Test Item Value Reference Range Interpretation Comments Segs (test code = Segs) 94.0 45.0-75.0 [place] 330032-07-25 08:03:00 Test Item Value Reference Range Interpretation Comments Lymphocytes (test code = Lymphocytes) 4.3 20.0-40.0 [place] [address]-07-25 08:03:00 Test Item Value Reference Range Interpretation Comments Monocytes (test code = Monocytes) 1.6 2.0-12.0 [place] 330032-07-25 08:03:00 Test Item Value Reference Range Interpretation Comments Basophils (test code = 0.1 See_Comment [Aut omated message] The Basophils) system which ge nerated this result tra nsmitted reference range : <=1.0. The reference r hugo was not used to int erpret this result as normal/abnormal . [facility] CenterStbcldqPLODGTFGJR8971-88-49 08:03:00 Test Item Value Reference Range Interpretation Comments Neutrophils # (test code = Neutrophils 7.0 1.5-8.1 #) [place] 330032-07-25 08:03:00 Test Item Value Reference Range Interpretation Comments Lymphocytes # (test code = Lymphocytes 0.3 1.0-5.5 #) [place] [address]-07-25 08:03:00 Test Item Value Reference Range Interpretation Comments Monocytes # (test code 0.1 See_Comment [Aut omated message] The = Monocytes #) system which generated this result tra nsmitted reference range : <=0.8. The reference r hugo was not used to int erpret this result as normal/abnormal . [place] 330032-07-25 08:03:00 Test Item Value Reference Range Interpretation Comments Microcyte (test code = 1+ *ABN*(06/13/22 Microcyte) 3:03 AM) [facility] [employer]2022-07-25 07:27:00 Test Item Value Reference Range Interpretation Comments HS Troponin I Baseline (test code = HS 46 Troponin I Baseline) [facility] [employer] [id number] 07:27:00 Test Item Value Reference Range Interpretation Comments HS Troponin I Baseline (test code = HS 46 Troponin I Baseline) [facility] [employer]2022-07-25 04:26:00 Test Item Value Reference Range Interpretation Comments HS Troponin I (test code = HS Troponin 46 I) [facility] [employer]2022-07-25 04:26:00 Test Item Value Reference Range Interpretation Comments BNP (test code = BNP) 851 [facility] RkubuwcDEYSWUIZHE7064-34-61 04:26:00 Test Item Value Reference Range Interpretation Comments Coronavirus (COVID-19) Not Detected (06/12/22 DEJUAN (test code = 11:26 PM) Coronavirus (COVID-19) DEJUAN) [facility] [employer]2022-07-25 04:26:00 Test Item Value Reference Range Interpretation Comments HS Troponin I (test code = HS Troponin 46 I) [facility] [employer]2022-07-25 04:26:00 Test Item Value Reference Range Interpretation Comments BNP (test code = BNP) 851 [facility] HfnmvtzTIBKEQRIYK3234-65-51 04:26:00 Test Item Value Reference Range Interpretation Comments Coronavirus (COVID-19) Not Detected (06/12/22 DEJUAN (test code = 11:26 PM) Coronavirus (COVID-19) DEJUAN) [facility] [employer]2022-07-25 02:20:00 Test Item Value Reference Range Interpretation Comments HS Troponin I (test code = HS Troponin 52 I) [facility] [employer]2022-07-25 02:20:00 Test Item Value Reference Range Interpretation Comments Glucose Lvl (test code = Glucose Lvl) 103 70-99 [facility] [employer]2022-07-25 02:20:00 Test Item Value Reference Range Interpretation Comments BUN (test code = BUN) 22 06-10 [facility] [employer] [id number] 02:20:00 Test Item Value Reference Range Interpretation Comments Creatinine Lvl (test code = Creatinine 0.90 0.50-1.40 Lvl) [facility] [employer]2022-07-25 02:20:00 Test Item Value Reference Range Interpretation Comments Sodium Lvl (test code = Sodium Lvl) 131 135-145 [place] 963442-07-25 02:20:00 Test Item Value Reference Range Interpretation Comments Potassium Lvl (test code = Potassium 4.2 3.5-5.1 Lvl) [place] 963442-07-25 02:20:00 Test Item Value Reference Range Interpretation Comments Chloride Lvl (test code = Chloride Lvl) 97 95-109 [place] 963442-07-25 02:20:00 Test Item Value Reference Range Interpretation Comments CO2 (test code = CO2) 26 24-32 [place] 963442-07-25 02:20:00 Test Item Value Reference Range Interpretation Comments Calcium Lvl (test code = Calcium Lvl) 8.7 8.5-10.5 [place] 963442-07-25 02:20:00 Test Item Value Reference Range Interpretation Comments Total Protein (test code = Total 7.0 6.4-8.4 Protein) [place] 963442-07-25 02:20:00 Test Item Value Reference Range Interpretation Comments Albumin Lvl (test code = Albumin Lvl) 3.4 3.5-5.0 [facility] [id number] 02:20:00 Test Item Value Reference Range Interpretation Comments ALT (test code = ALT) 18 See_Comment [Auto mated message] The system which ge nerated this result transmit lavon reference range : <=65. The reference range was not used to interpr et this result as blayne l/abnormal. [facility] [id number] 02:20:00 Test Item Value Reference Range Interpretation Comments AST (test code = AST) 27 See_Comment [Auto mated message] The system which ge nerated this result transmit lavon reference range : <=37. The reference range was not used to interpr et this result as blayne l/abnormal. [facility] [id number] 02:20:00 Test Item Value Reference Range Interpretation Comments Alk Phos (test code = Alk Phos) 57 39-136 [facility] [id number] 02:20:00 Test Item Value Reference Range Interpretation Comments Bili Total (test code = Bili Total) 1.0 0.2-1.[address] [facility]2022-07-25 02:20:00 Test Item Value Reference Range Interpretation Comments AGAP (test code = AGAP) 12.2 10.0-20.[address] [facility]2022-07-25 02:20:00 Test Item Value Reference Range Interpretation Comments B/C Ratio (test code = B/C Ratio) 24 1 6-25 [place] 963442-07-25 02:20:00 Test Item Value Reference Range Interpretation Comments Globulin (test code = Globulin) 3.6 2.7-4.2 [place] 963442-07-25 02:20:00 Test Item Value Reference Range Interpretation Comments A/G Ratio (test code = A/G Ratio) 0.9 1 0.7-1.[address] [facility]2022-07-25 02:20:00 Test Item Value Reference Range Interpretation Comments eGFR (test code = eGFR) 62 [facility] CenterNqhtbpqEUUTDKHHOA9091-47-30 02:20:00 Test Item Value Reference Range Interpretation Comments WBC (test code = WBC) 8.6 3.7-10.4 [place] 330032-07-25 02:20:00 Test Item Value Reference Range Interpretation Comments RBC (test code = RBC) 3.58 4.20-5.40 [facility] CenterIzchhuuFKCZRBBRZV5703-52-89 02:20:00 Test Item Value Reference Range Interpretation Comments Hgb (test code = Hgb) 8.8 12.0-16.0 [facility] CenterHdyhhbyGHBKFCJYRW9432-68-56 02:20:00 Test Item Value Reference Range Interpretation Comments Hct (test code = Hct) 27.1 36.0-48.0 [place] 330032-07-25 02:20:00 Test Item Value Reference Range Interpretation Comments MCV (test code = MCV) 75.6 80.0-98.0 [place] 330032-07-25 02:20:00 Test Item Value Reference Range Interpretation Comments MCH (test code = MCH) 24.5 pg 27.0-31.0 [place] 330032-07-25 02:20:00 Test Item Value Reference Range Interpretation Comments MCHC (test code = MCHC) 32.4 32.0-36.0 [place] 330032-07-25 02:20:00 Test Item Value Reference Range Interpretation Comments RDW (test code = RDW) 21.1 11.5-14.5 [place] 330032-07-25 02:20:00 Test Item Value Reference Range Interpretation Comments Platelet (test code = Platelet) 297 133-450 [place] 330032-07-25 02:20:00 Test Item Value Reference Range Interpretation Comments MPV (test code = MPV) 7.5 7.4-10.4 [place] 330032-07-25 02:20:00 Test Item Value Reference Range Interpretation Comments Segs (test code = Segs) 85.8 45.0-75.0 [place] 330032-07-25 02:20:00 Test Item Value Reference Range Interpretation Comments Lymphocytes (test code = Lymphocytes) 8.5 20.0-40.0 [place] 330032-07-25 02:20:00 Test Item Value Reference Range Interpretation Comments Monocytes (test code = Monocytes) 5.0 2.0-12.0 [place] 330032-07-25 02:20:00 Test Item Value Reference Range Interpretation Comments Eosinophils (test code = 0.3 See_Comment [A utomated message] The Eosinophils) system which ge nerated this result tra nsmitted reference range : <=4.0. The reference r hugo was not used to int erpret this result as normal/abnormal . [place] 330032-07-25 02:20:00 Test Item Value Reference Range Interpretation Comments Basophils (test code = 0.4 See_Comment [Aut omated message] The Basophils) system which ge nerated this result tra nsmitted reference range : <=1.0. The reference r hugo was not used to int erpret this result as normal/abnormal . [place] 330032-07-25 02:20:00 Test Item Value Reference Range Interpretation Comments Neutrophils # (test code = Neutrophils 7.4 1.5-8.1 #) [place] 330032-07-25 02:20:00 Test Item Value Reference Range Interpretation Comments Lymphocytes # (test code = Lymphocytes 0.7 1.0-5.5 #) [place] 330032-07-25 02:20:00 Test Item Value Reference Range Interpretation Comments Monocytes # (test code 0.4 See_Comment [Aut omated message] The = Monocytes #) system which generated this result tra nsmitted reference range : <=0.8. The reference r hugo was not used to int erpret this result as normal/abnormal . [facility] CenterEejgldyZHCQIXPANW8469-51-98 02:20:00 Test Item Value Reference Range Interpretation Comments Microcyte (test code = 1+ *ABN*(06/12/22 Microcyte) 9:20 PM) [facility] [id number] 02:20:00 Test Item Value Reference Range Interpretation Comments HS Troponin I (test code = HS Troponin 52 I) [facility] Center[facility] [id number] 02:20:00 Test Item Value Reference Range Interpretation Comments Glucose Lvl (test code = Glucose Lvl) 103 70-99 [facility] [id number] 02:20:00 Test Item Value Reference Range Interpretation Comments BUN (test code = BUN) 22 7-[address] [facility]2022-07-25 02:20:00 Test Item Value Reference Range Interpretation Comments Creatinine Lvl (test code = Creatinine 0.90 0.50-1.40 Lvl) [facility] [id number] 02:20:00 Test Item Value Reference Range Interpretation Comments Sodium Lvl (test code = Sodium Lvl) 131 135-145 [facility] [id number] 02:20:00 Test Item Value Reference Range Interpretation Comments Potassium Lvl (test code = Potassium 4.2 3.5-5.1 Lvl) [facility] [id number] 02:20:00 Test Item Value Reference Range Interpretation Comments Chloride Lvl (test code = Chloride Lvl) 97 95-109 [facility] [id number] 02:20:00 Test Item Value Reference Range Interpretation Comments CO2 (test code = CO2) 26 24-32 [facility] [id number] 02:20:00 Test Item Value Reference Range Interpretation Comments Calcium Lvl (test code = Calcium Lvl) 8.7 8.5-10.5 [facility] [id number] 02:20:00 Test Item Value Reference Range Interpretation Comments Total Protein (test code = Total 7.0 6.4-8.4 Protein) [place] 963442-07-25 02:20:00 Test Item Value Reference Range Interpretation Comments Albumin Lvl (test code = Albumin Lvl) 3.4 3.5-5.0 [place] 963442-07-25 02:20:00 Test Item Value Reference Range Interpretation Comments ALT (test code = ALT) 18 See_Comment [Auto mated message] The system which ge nerated this result transmit lavon reference range : <=65. The reference range was not used to interpr et this result as blayne l/abnormal. [place] 963442-07-25 02:20:00 Test Item Value Reference Range Interpretation Comments AST (test code = AST) 27 See_Comment [Auto mated message] The system which ge nerated this result transmit lavon reference range : <=37. The reference range was not used to interpr et this result as blayne l/abnormal. [place] 963442-07-25 02:20:00 Test Item Value Reference Range Interpretation Comments Alk Phos (test code = Alk Phos) 57 39-136 [place] 963442-07-25 02:20:00 Test Item Value Reference Range Interpretation Comments Bili Total (test code = Bili Total) 1.0 0.2-1.3 [place] 963442-07-25 02:20:00 Test Item Value Reference Range Interpretation Comments AGAP (test code = AGAP) 12.2 10.0-20.0 [place] 963442-07-25 02:20:00 Test Item Value Reference Range Interpretation Comments B/C Ratio (test code = B/C Ratio) 24 1 6-25 [place] 963442-07-25 02:20:00 Test Item Value Reference Range Interpretation Comments Globulin (test code = Globulin) 3.6 2.7-4.2 [place] 963442-07-25 02:20:00 Test Item Value Reference Range Interpretation Comments A/G Ratio (test code = A/G Ratio) 0.9 1 0.7-1.6 [place] 963442-07-25 02:20:00 Test Item Value Reference Range Interpretation Comments eGFR (test code = eGFR) 62 [facility] CenterIauxaudXSDNZTQBSS6444-04-12 02:20:00 Test Item Value Reference Range Interpretation Comments WBC (test code = WBC) 8.6 3.7-10.4 [place] 330032-07-25 02:20:00 Test Item Value Reference Range Interpretation Comments RBC (test code = RBC) 3.58 4.20-5.40 [place] 330032-07-25 02:20:00 Test Item Value Reference Range Interpretation Comments Hgb (test code = Hgb) 8.8 12.0-16.0 [place] [address]-07-25 02:20:00 Test Item Value Reference Range Interpretation Comments Hct (test code = Hct) 27.1 36.0-48.0 [place] 330032-07-25 02:20:00 Test Item Value Reference Range Interpretation Comments MCV (test code = MCV) 75.6 80.0-98.0 [place] [address]-07-25 02:20:00 Test Item Value Reference Range Interpretation Comments MCH (test code = MCH) 24.5 pg 27.0-31.0 [place] 330032-07-25 02:20:00 Test Item Value Reference Range Interpretation Comments MCHC (test code = MCHC) 32.4 32.0-36.0 [place] 330032-07-25 02:20:00 Test Item Value Reference Range Interpretation Comments RDW (test code = RDW) 21.1 11.5-14.5 [place] [address]-07-25 02:20:00 Test Item Value Reference Range Interpretation Comments Platelet (test code = Platelet) 297 133-450 [place] 330032-07-25 02:20:00 Test Item Value Reference Range Interpretation Comments MPV (test code = MPV) 7.5 7.4-10.4 [place] 330032-07-25 02:20:00 Test Item Value Reference Range Interpretation Comments Segs (test code = Segs) 85.8 45.0-75.0 [place] [address]-07-25 02:20:00 Test Item Value Reference Range Interpretation Comments Lymphocytes (test code = Lymphocytes) 8.5 20.0-40.0 [place] [address]-07-25 02:20:00 Test Item Value Reference Range Interpretation Comments Monocytes (test code = Monocytes) 5.0 2.0-12.0 [facility] CenterKtccmyrMBCQXIWTOW4509-65-45 02:20:00 Test Item Value Reference Range Interpretation Comments Eosinophils (test code = 0.3 See_Comment [A utomated message] The Eosinophils) system which ge nerated this result tra nsmitted reference range : <=4.0. The reference r hugo was not used to int erpret this result as normal/abnormal . [facility] CenterIrvbghgCEUMFIQEXM4405-07-75 02:20:00 Test Item Value Reference Range Interpretation Comments Basophils (test code = 0.4 See_Comment [Aut omated message] The Basophils) system which ge nerated this result tra nsmitted reference range : <=1.0. The reference r hugo was not used to int erpret this result as normal/abnormal . [facility] CenterMgvcqgdHIIHBXZUKV9963-73-49 02:20:00 Test Item Value Reference Range Interpretation Comments Neutrophils # (test code = Neutrophils 7.4 1.5-8.1 #) [facility] CenterDsbupukAJWBBPPTOY9338-71-65 02:20:00 Test Item Value Reference Range Interpretation Comments Lymphocytes # (test code = Lymphocytes 0.7 1.0-5.5 #) [facility] CenterCjgzkgiAJNLGGMMGB6610-22-60 02:20:00 Test Item Value Reference Range Interpretation Comments Monocytes # (test code 0.4 See_Comment [Aut omated message] The = Monocytes #) system which generated this result tra nsmitted reference range : <=0.8. The reference r hugo was not used to int erpret this result as normal/abnormal . [facility] CenterCrhtqlaUREYNCQXPU2706-83-41 02:20:00 Test Item Value Reference Range Interpretation Comments Microcyte (test code = 1+ *ABN*(06/12/22 Microcyte) 9:20 PM) [facility] AreaHzahjcxONWIODJN1629-24-93 11:14:00 Test Item Value Reference Range Interpretation Comments SURGICAL (test code = SR) R UN DATE: 06/01/22 [facility] - [facility] PAGE 1 RUN TIME: 1114 Specimen Inquiry RUN USER: INTERFACE P ATIENT: KELLY SLOAN LOC: [place] U #: [id number] AGE/SX: 87/F [place] [facility]REG DR: Frank Putnam MD : 35 BED: 1 DIS: 05/26/22 STATUS: DIS IN TLOC: SPEC #: [id number] RECD: 05/28/22 STATUS: MALOU REQ #: [id number] FLORES: 05/25/22- SUBM DR: Frank Putnam MD ENTERED: 05/28/22-1416 SP TYPE: SURGICAL OTHR DR: Lizeth Morales MD, Nehme X MD Chaugle, Abdul Hannan MD Lee, Gabriel MD Mahmood,Ofelia Valle MD NPORDERED: 90742, 02735, IHC ADD 53893/7, 59875-16, ANATOMIC SPEC COPIES TO: Lizeth Morales MD [address] [place] [address] John Alberto MD [address] [place] 899771 Marcellus De La Garza MD [address] [place] 8285[address] Camron Fonseca MD [address] [facility] [address] [place] [address] Kyler Longoria MD [address] [place] [address] Frank Putnam MD [address] [facility] [address] [place] [address] Ofelia Syed NP [address] [place] [address] CONTINUED ON NEXT PAGE R UN DATE: 06/01/22 [facility] - LAB PAGE 2 RUN TIME: 1114 Specimen Inquiry RUN USER: INTERFACE S PEC #: [id number] PATIENT: KELLY SLOAN #[id number] (Continued) PROCEDURES: [id number] (05/28/22-1417) 45198 (06/01/22-1001) IHC ADD 97295 (06/01/22-1001) 21741-64 (06/01/22-1001) TISSUES: A. PERITONEUM BIOPSY - NODULE, CORE [...] submitted in 1cassette. Technical component performed at [facility],[address] [place] [address], [place] [address] Unless gross only, the diagnosis is based [...] CK20 and calretinin. Inhibin immunohistochemical stainperformed at [facility] and interpreted at [facility] is negative in the tumor cells. CONTINUED ON NEXT PAGE R UN DATE: 06/01/22 [facility] - LAB PAGE 3 RUN TIME: 111 Specimen Inquiry RUN USER: INTERFACE S JERE #: [id number] PATIENT: KELLY SLOAN Patricia #[id number] (Continued) CLINICAL INFORMATION PERITONAL NODULE ----- Signed _ Dav Marie 06/01/22 1114 END OF REPORT [id number] 10:45:00 Test Item Value Reference Range Interpretation Comments MAGNESIUM (test code = MAG) 1.65 mg/dL 1.80-2.40 L CBC W/AUTO [id number] 08:08:00 Test Item Value Reference Range Interpretation [...] (test code NO = MDIFF) BASIC METABOLIC [id number] 07:29:00 Test Item Value Reference Range Interpretation [...] = 8.9 mg/dL 8.0-10.5 N CA) PROTHROMBIN [id number] 06:41:00 Test Item Value Reference Range Interpretation [...] recurrent infar ct). COVID 19 Asymptomatic IH [id number] 04:50:00 Test Item Value Reference Range Interpretation [...] ENDO- CT GUID NDL PLCMT (Biopsy/Asp)2022-05-25 00:00:00 [facility] : 1935 Sex: F Name: KELLY SLOAN [facility] : 1935 Age/S: 87 / F [address] [place], [place] [address]vd Unit #: [id number] Loc: [place] [address] Phys: Jamshid Chang MD Acct: [id number] Dis Date: Status: ADM IN PHONE #: [phone] Exam Date: 05/25/2022 1313 FAX #: [phone] Reason: peritoneal mets- etiology? EXAMS: CPT CODE: [id number] CT GUID NDL PLCMT (Biopsy/Asp) 87413 PROCEDURE INFORMATION: Exam:IR Biopsy, abdominal or retroperitoneal mass, percutaneous needle Exam date and time: 05/25/2022 11:37AM Age: 87 years old Clinical indication: Other: [...] no immediate complication. The patient was stable throughoutthe procedure. IMPRESSION: Successful CT-guided biopsy of peritoneal mass. PAGE 1 Signed Report (CONTINUED) Name: LUTHERKELLY M [facility] : 1935 Age/S: 87 / F [address] [place] [address] Unit #: [id number] Loc: [place] [address] Phys: Jamshid Chang MD Acct: [id number] Dis Date: Status: ADM IN PHONE #: [phone] Exam Date: 05/25/2022 1313 FAX #: [phone] Reason: peritoneal mets- etiology? EXAMS: CPT CODE: [id number] CT GUID NDL PLCMT (Biopsy/Asp) 62696 (Continued) at 1501 Reported and signed by: Ramos Thao CC: Jamshid Chang MD; Frank Putnam MD Technologist:RT Tiffany(R)(CT) CTDI: DLP: Trnscb Date/Time: 05/25/2022 (150) t.[email or web address] Orig Print D/T: S: 05/25/2022 (1501) PAGE 2 Signed ReportPROTEIN ELECTROPHORESIS [id number] 17:08:00 Test Item Value Reference Range Interpretation Comments TOTAL PROTEIN 5.7 g/dL 6.0-8.5 L (test code = PROTE) ALBUMIN (test 3.1 g/dL 2.9-4.4 code = ALBE) MDXSN-0-ZYDJXGLW 0.3 g/dL 0.0-0.4 (test code = A1G) BDVQN-7-IQJJURGA 0.6 g/dL 0.4-1.0 (test code = A2G) [...] is not apparent.Perfor med At: [facility] [address] [place], [place] [id number] Willis Lovett MD Ph:[phone] rform ed At: [facility] [address] [place], [place] [id number] tim TAVERA MD Ph:[phone] [Automated mess age] The system [employer] generated this result transmit lavon reference range : (). The reference r hugo was not used to interpret this result as normal/abnormal . LACTIC DEHYDROGENASE(LDH)2022-05-24 17:08:00 Test Item Value Reference Range Interpretation Comments LACTIC DEHYDROGENASE(LDH) (test 233 IUnits/L 84-246 N code = LDH) TOTAL IRON BINDING [id number] 17:08:00 Test Item Value Reference Range Interpretation Comments SERUM IRON (test code = IRON) 88 mcg/dL 35-150 N TOTAL IRON BINDING CAPACITY (test 382 mcg/dL 260-445 N code = TIBC) UIBC (test code = UIBC) 294 mcg/dL IRON SATURATION (test code = 23.0 % 14-34 N FESAT) VITAMIN [id number] 17:08:00 Test Item Value Reference Range Interpretation Comments VITAMIN B12 (test code = VITB12) 262 pg/mL 193-986 N FOLIC [id number] 17:08:00 Test Item Value Reference Range Interpretation Comments FOLIC ACID (test code = FOL) 11.3 ng/mL 3.1-17.5 N AG [id number] 17:08:00 Test Item Value Reference Range Interpretation Comments AG CARCINOEMBRYONIC (test code = 0.1 NG/ML 0.0-5.0 N CEA) [id number] 17:08:00 Test Item Value Reference Range Interpretation Comments CA 125 (test 115.0 U/mL 0.0-38.1 A Greta [employer] cs code = Electrochemilum inescence CA125) Immunoassay(ECL IA)Values obtained with d ifferent assay methods or kits cannotbe used interchangeably . Results cannot be interpreted asabsolute evidence of the presence or absence of fei gnantdisease. CA27-29, [id number] 17:08:00 Test Item Value Reference Range Interpretation Comments CA27-29, 22.1 U/mL 0.0-38.6 Siemens [employer] BIOMIRA (test Immunochemilum inometric code = YG0832) Methodology ( ICMA)Values obtained with d ifferent assay methods or kits cannotbe used interchangeably . Results cannot be inter preted asabsolute evid ence of the presence or abs ence of malignantdiseas e.Performed At: [facility] [address] [place], [place] [id number] Willis Lovett MD Ph:[phone] BASIC METABOLIC [id number] 04:47:00 Test Item Value Reference Range Interpretation [...] code = 7.8 mg/dL 8.0-10.5 L CA) [id number] 04:47:00 Test Item Value Reference Range Interpretation Comments MAGNESIUM (test code = MAG) 1.80 mg/dL 1.80-2.40 N CBC W/AUTO [id number] 04:37:00 Test Item Value Reference Range Interpretation [...] DIFF REQUIRED (test code NO = MDIFF) [id number] 17:11:00 Test Item Value Reference Range Interpretation Comments HAPTOGLOBIN (test code 137 mg/dL 41-333 Perfo rmed At: DA = HAPT) [facility] [place] [address] [address] [facility] [address] [place], [place] [id number] h LIANG RUST Ph:[phone] BASIC METABOLIC [id number] 04:10:00 Test Item Value Reference Range Interpretation [...] code = 8.1 mg/dL 8.0-10.5 N CA) [id number] 04:10:00 Test Item Value Reference Range Interpretation Comments MAGNESIUM (test code = MAG) 1.92 mg/dL 1.80-2.40 N CBC W/AUTO [id number] 03:56:00 Test Item Value Reference Range Interpretation [...] CHOLESTEROL/HDL 1.92 RATIO 3.27-4.44 L RISK ASSOCIA LVAON WITH RATIO (test code = CHOL/HDL RATIOS: [...] (test code = LDL) NEAR OPTIM AL/ABOVE [id number] [id number] 89 HIGH>NM=404 BRUNILDA Y HIGH*Guidelines provided by the [facility] terol Education[employer]gra Adult Treatment Panel III SERUM [id number] 05:12:00 Test Item Value Reference Range Interpretation Comments SERUM IRON (test code = IRON) 90 mcg/dL 35-150 N THYROID STIMULATING [id number] 05:12:00 Test Item Value Reference Range Interpretation Comments THYROID STIMULATING 2.69 0.42-5.47 N Results in HORMONE (test code = TSH) mi lli-International Units/mL [id number] 05:12:00 Test Item Value Reference Range Interpretation Comments FERRITIN (test code = BRIDGET) 35.6 ng/mL 11.0-306.8 N RETIC COUNT (AUTOMATED)2022-05-20 05:08:00 Test Item Value Reference Range Interpretation Comments RETIC COUNT (AUTOMATED) (test code = 2.3 % 0.3-2.3 N RETICA) BASIC METABOLIC [id number] 05:00:00 Test Item Value Reference Range Interpretation [...] code = 8.0 mg/dL 8.0-10.5 N CA) [id number] 05:00:00 Test Item Value Reference Range Interpretation Comments MAGNESIUM (test code = MAG) 2.06 mg/dL 1.80-2.40 CBC W/AUTO [id number] 04:59:00 Test Item Value Reference Range Interpretation [...] = MDIFF) - CT ABD PELVIS W/O [id number] 00:00:00 [facility] : 1935 Sex: F Name: KELLY SLOAN [facility] Santa [place] : 1935 Age/S: 87 / F [address] [place] [address] Unit #: [id number] Loc: [place] [address] Phys: Kyler Longoria MD Acct: [id number] Dis Date: Status: ADM IN PHONE #: [phone] Exam Date: 05/20/2022921 FAX #: [phone] Reason: Peritoneal nodularity, breast cancer EXAMS: CPT CODE: [id number] CT ABD PELVIS W/O CONT 22105 PROCEDURE INFORMATION: Exam: CT Abdomen And Pelvis Without Contrast Exam date and time: 05/20/2022 9:07 AM Age: 87 years old Clinical indication: Other: Peritoneal nodularity, breast cancer TECHNIQUE: Imaging protocol: Computed tomography of the abdomen and pelvis without contrast. Radiation optimization: All CT scans at [facility] use at least one of these dose [...] appearance. Pleural spaces: Bilateral layering pleural effusions, rightgreater than left redemonstrated. Heart: Cardiomegaly and coronary [...] 1 Signed Report (CONTINUED) Name: KELLY SLOAN [facility] : 1935 Age/S: 87 / F [address] [place] [address] Unit #: [id number] Loc: [place] [address] Phys: Kyler Longoria MD Acct: [id number] Dis Date: Status: ADM IN PHONE #: [phone] Exam Date: 05/20/2022 09 FAX #: [phone] Reason: Peritoneal nodularity, breast cancer EXAMS: CPT CODE: [id number] CT ABD PELVIS W/O CONT 64825 (Continued) Intraperitoneal space: There is a small [...] aorta 2.4 cm. Lymph nodes: Left anterior diaphragmaticnode 13 x 12 mm. There is no retroperitoneal or pelvic adenopathy by size criteria. There are mildlyenlarged mesenteric nodes measuring up to 11 mm short axis series 2, image 78. Urinary bladder: The u rinary bladder contains excreted contrast, otherwise unremarkable. Reproductive: [...] Severe atherosclerosis. 6. Bilateral, right greater than l eft pleural effusions and pulmonary opacities redemonstrated. The reader is referred to recent CT chest report for further details. Electronically Signed by Gonzalo Saleem on 2at 1527 Reported and signed by: Memo Saleem M.D. PAGE 2 Signed Report (CONTINUED) Name: KELLY GILLESPIE [facility] : 1935 Age/S: 87 / F [address] [place] [address] Bl Unit #: [id number] Loc: [place] [address] Phys: Kyler Longoria MD Acct: [id number] Dis Date: Status: ADM IN PHONE#: [phone] Exam Date: 05/20/2022921 FAX #: [phone] Reason: Peritoneal nodularity, breastcancer EXAMS: CPT CODE: [id number] CT ABD PELVIS W/O CONT 31532 (Continued) CC: Kyler Longoria; Frank Putnam MD Technologist:Rosalind Sheehan. RT(R)(CT) CTDI: DLP: Trnscb Date/Time: 05/20/2022 (1526) t.SDR.KWL Orig Print D/T: S: 05/20/2022 (1526) PAGE 3 Signed ReportURINALYSIS [id number] 07:24:00 Test Item Value Reference Range Interpretation [...] 0-5 /HPF NONE SEEN SQU) CBC W/AUTO [id number] 04:25:00 Test Item Value Reference Range Interpretation [...] REQUIRED (test code NO = MDIFF) RBC [id number] 04:25:00 Test Item Value Reference Range Interpretation Comments ANISOCYTOSIS (test code = ANISO) 1+ POLYCHROMASIA (test code = POLC) 1+ HYPOCHROMIA (test code = HYPO) 1+ MICROCYTOSIS (test code = MICR) 1+ BASIC METABOLIC [id number] 04:14:00 Test Item Value Reference Range Interpretation [...] code = 7.7 mg/dL 8.0-10.5 L CA) [id number] 04:14:00 Test Item Value Reference Range Interpretation Comments MAGNESIUM (test code = MAG) 1.77 mg/dL 1.80-2.40 L - DUP VEIN [id number] 00:00:00 [facility] 1935 Sex: F Name: KELLY SLOAN [facility] : 1935 Age/S: 87 / F [address] [place] [address] Unit #: [id number] Loc: [place] [address] Phys: Kinney- JhSofiaz BEADING SAWYER Acct: [id number] Dis Date: Status: ADM IN PHONE #: [phone] Exam Date: 05/19/2022 0548 FAX #: [phone] Reason: PRE CABG E SPRING EXAMS: CPT CODE: [id number] DUP VEIN JOSE ENRIQUE 48[address] PROCEDURE INFORMATION: Exam: US Duplex Lower Extremity [...] color filling. RIGHT LEG: Thigh proximal: 4.1 mmThigh mid: 3.5 mm Thigh distal: 1.9 mm [...] 1 Signed Report (CONTINUED) Name: KELLY SLOAN [facility] : 1935 Age/S: 87 / F [address] [place] [address] Unit #: [id number] Loc: [place] [address] Phys: Analia Espinal [employer]ER Acct: [id number] Dis Date: Status: ADM IN PHONE #: [phone] Exam Date: 05/19/2022547 FAX #: [phone] Reason: PRE CABG EVAL EXAMS: CPT CODE: [id number] DUP VEIN JOSE ENRIQUE 66926 (Continued) CC: Analia Garzon BEADING SAWYER; Frank Putnam MD Technologist: Nannette Maldonado RDMS(AB)(OB) Trnscb Date/Time: 05/19/2022 (617) VincenzoAR21 Orig Print D/T: S: 05/19/2022 (618) Probe: PAGE 2 Signed Report- DUP EXTRACRANIAL [id number] 00:00:00 [facility] : 1935 Sex: F Name: KELLY SLOAN [facility] : 1935 Age/S: 87 / F [address] [place] [address] Unit #: [id number] Loc: [place] [address] Phys: Analia Espinal [employer]ER Acct: [id number] Dis Date:Status: ADM IN PHONE #: [phone] Exam Date: 05/19/202248 FAX #: [phone] Reason: PRE CABG EVAL EXAMS: CPT CODE: [id number] DUP EXTRACRANIAL JOSE ENRIQUE 00460 PROCEDURE INFORMATION: Exam: US Duplex Bilateral Extracranial [...] Total occlusion is no detectable patent lumen. ElectronicallySigned by Venkatesh Morel on 05/19/2022 at 0639 Reported and signed by: Epifanio Morel M.D PAGE 1 Signed Report (CONTINUED) Name: KELLY SLOAN Patricia [facility] : 1935 Age/S: 87 / F [address] [place] [address] Blvd Unit #: [id number] Loc: [place] [address] Phys: Analia Sanders NP Acct:[id number] Dis Date: Status: ADM IN PHONE #: [phone] Exam Date: 05/19/2022 0524 FAX #: Reason: PRE CABG EVAL EXAMS: CPT CODE: [id number] DUP EXTRACRANIAL JOSE ENRIQUE 15409 (Continued) CC: Analia Sanders BEADING SAWYER; Frank Putnam MD Technologist: Nannette Maldonado RDMS(AB)(OB) Trnscb Date/Time: 05/19/2022 (638) [email or web address] Orig Print D/T: S: 05/19/2022 (638) Probe: PAGE 2 Signed Report- CT CHEST W/O [id number] 00:00:00 [facility]AR[facility] Patricia : 1935 Sex: F Name: HENRY SLOANARITA Patricia [facility] : 1935 Age/S: 87 / F [address] [place] [address] Unit #: [id number] Loc: [place] [address] Phys: Analia Espinal NP Acct: [id number] Dis Date: Status: ADM IN PHONE #: [phone] Exam Date: 05/19/2022 1047 FAX #: [phone] Reason: PRE CABG EVAL EXAMS: CPT CODE: [id number] CT CHEST W/O CONTRAST 14252 PROCEDURE INFORMATION: Exam: CT Chest Without Contrast; [...] is matched to clinical indication); or iterative r econstruction. COMPARISON: US DUP EXTRACRANIAL JOSE ENRIQUE 05/19/2022 [...] not enlarged by size criteria. Vasculature: The aorta demonstrates moderate atherosclerotic calcification. The aorta demonstrates s evere atherosclerotic calcification. Calcified plaque in the aortic root ascending aorta, aortic arch and descending aorta. Mild aortic ectasia. 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 Approximate aortic diameters: Ascending aorta at the level of RPA, 3.8 cm. Descending aorta at the same level 2.3 cm. Distal aortic arch 2.4 cm. Mid descending aorta 2.9 cm. Distal descending aorta 2.7 cm.The main pulmonary artery measures 2.9 cm. Vasculature: Unremarkable. No aortic aneurysm. Diaphragm:A moderate hiatal hernia is present. PAGE 1 Signed Report (CONTINUED) Name: JOSUE SLOANNIRMALA Gomez [facility] : 1935 Age/S: 87 / F [address] [place] [address] Unit #: [id number] Loc: [place] [address] Phys: Analia Sanders [employer]ER Acct: [id number] Dis Date: Status: ADM IN PHONE #: [phone] Exam Date: 05/19/2022 1047 FAX #: [phone] Reason: PRE CABG EVAL EXAMS: CPT CODE: [id number] CHEST W/O CONTRAST 24951 (Continued) Liver: The liver is hyperattenuating, greater than 80 Hounsfield units. Otherwise normal morphology through visualized portions. Gallbladder and bile ducts: Hyperattenuation of gallbladder contents compatible with vicarious excretion of contrast versus sludge. No pericholecystic edema. Intraperitoneal space: Motion limited survey of upper abdominal contents. Per itoneal nodularity in the left upper quadrant with [...] PAGE 2 Signed Report (CONTINUED) Name: KELLY SOLAN [facility] : 1935 Age/S: 87 / F [address] [place] [address] BlvdUnit #: [id number] Loc: [place] [address] Phys: Analia Sanders [employer]AD[employer] SAWYER Acct: [id number] Dis Date: Status: ADM IN PHONE #: [phone] Exam Date: 05/19/2022 1047 FAX #: [phone] Reason: PRE CABG EVAL EXAMS: CPT CODE: [id number] CT CHEST W/O CONTRAST 51321 (Continued) CC: Analia Sanders [employer]WYER; Frank Putnam MD Technologist:Jose Kaiser, RT(R)(CT) CTDI: DLP: Trnscb Date/Time: 05/19/2022 (620) ShelbiL Orig Print D/T: S: 05/19/2022 (8180) PAGE 3 Signed Report GLUCOSE [id number] 21:58:00 Test Item Value Reference Range Interpretation Comments GLUCOSE BEDSIDE (test 134 MG/DL 70-110 H Perfor med by certified code = GLUBED) grinder setup operator at [facility] [id number] 16:53:00 Test Item Value Reference Range Interpretation Comments ACT-ISTAT (test code 254 SEC 74-137 H Perform ed by certified = ACTI) 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 [id number] 16:28:00 Test Item Value Reference Range Interpretation Comments ACT-ISTAT (test code 248 SEC 74-137 H Perform ed by certified = ACTI) 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
[2022-09-19 14:20] LABS: Absolute Lymphocytes (CBC) 0.8 K/uL (0.7-4.9); Hematocrit 23.5 % (36.0-45.0); Lymphocytes % 19.7 % (15.3-44.8); MCV 88.3 fL (80-100); RBC Red Blood Cell Count 2.66 M/uL (3.86-4.86)
[2022-09-19 14:30] LABS: Anisocytosis 2+; Blood Morphology Comment NOTED (NOT SEEN); Platelet Estimate ADEQ; White Blood Cell Scan OK (OK)
[2022-09-19 14:39] LABS: Protime INR 1.06
[2022-09-19 14:57] LABS: Albumin 3.1 g/dL (3.4-5.0); Bilirubin Direct 0.5 mg/dL (0-0.2); Bilirubin Total 1.4 mg/dL (0.2-1.0); Magnesium 2.2 mg/dL (1.8-2.4); Potassium 4.2 mmol/L (3.5-5.1); Protein, Total 6.5 g/dL (6.4-8.2)
[2022-09-19 15:00] LABS: Troponin High Sensitivity 927.4 pg/mL (<58.9)
--- NOTE | 2022-09-19 15:14 | RAD REPORT ---
EXAM DESCRIPTION: RAD - Chest Single View - 09/19/2022 2:57 pm CLINICAL HISTORY: CHEST PAIN COMPARISON: Portable July 18 TECHNIQUE: AP portable chest image was obtained 09/19/2022 2:57 pm . FINDINGS: Left-sided Port-A-Cath has been placed. Diffusely prominent interstitial markings are seen more pronounced on the right. Patchy airspace opacification noted on the right. Bilateral pleural ef fusions are present worse on the right. Cardiomegaly is present. Central vasculature is prominent and increased over comparison. No pneumothorax. No acute bony abnormality seen. No acute aortic findings suspected. IMPRESSION: CHF/volume overload findings are evident with right greater than left pleural effusions.
[2022-09-19] MEDS ORDERED: FUROSEMIDE 20 MG/ 2ML VIAL ONE (15:17)
[2022-09-19 15:22] LABS: SARS-CoV-2 Antigen Rapid Res Negative (Negative)
--- NOTE | 2022-09-19 16:33 | RAD REPORT ---
EXAM DESCRIPTION: CT - Chest For Pe Angio - 09/19/2022 4:13 pm CLINICAL HISTORY: sob, hx ca, hypertension, pulmonary edema history, uterine cancer history, prior CHF COMPARISON: Chest For Pe Angio dated 05/30/2022; Chest Single View dated 09/19/2022 TECHNIQUE: Dynamically enhanced 3 mm thick images of the chest were obtained during administration o f approximately 150mL Isovue 370 IV contrast. Coronal and oblique MIP reconstruction images were gene rated and reviewed. Exam utilizes a protocol to evaluate the pulmonary arterial tree. All CT scans are performed using dose optimization technique as appropriate and may include automated exposure control or mA/KV adjustment according to patient size. FINDINGS: No pulmonary emboli are identified. The aorta as imaged shows no acute or suspicious finding. Cardiomegaly is present without pericardial effusion. Large bilateral pleural effusions are present, right greater than left. There is partial atelectasis of each lower lobe with partial atelectasis along the posterior aspects of the each upper lobe. Airsp tanner opacities are present in the right lung field and to a lesser degree in the lingula. Patchy airsp tanner opacification superior segment left lower lobe. No pneumothorax. No pleural based mass. No mediastinal or hilar suspicious masses. No chest wall masses or abnormal axillary lymphadenopathy. Fluid retention is seen in the subcutaneous fatty tissues of the breasts, lateral chest and upper ab domen. In the upper abdomen the liver has a nodular capsule contour. There is a moderate-sized hiatal hernia. IMPRESSION: No pulmonary emboli identified. Large bilateral pleural effusions with atelectasis. There is alveolar opacification that is probably from pulmonary edema rather than pneumonia. Cardiomegaly with fluid retention in the subcutaneous fatty tissues of the lower chest and upper abdo men.CHF/ volume overload suspected.
[2022-09-19] MEDS ORDERED: NA CHLORIDE 0.9% 1,000 ML ONE (17:26)
--- NOTE | 2022-09-19 17:35 | EDPHYS ---
Physician Documentation [facility] Name: Minal Phillips Age: 87 yrs Sex: Female : 1935 Arrival Date: 09/19/2022 Time: 13:30 Bed 19 Private MD: Levi Rosa E ED Physician Néstor Phelan HPI: 09/19 14:40 This 87 yrs old Female presents to ER via Wheelchair with complaints of snw Epigastric Pain. 14:40 The patient presents with epigastric discomfort. Onset: The symptoms/episode snw began/occurred gradually. The symptoms do not radiate. Associated signs and symptoms: none. The symptoms are described as constant. Severity of pain: At its worst the pain was moderate. It is unknown whether or not the patient has had similar symptoms in the past. pt is being tx for uterine ca. Pt to have chemo tomorrow. Historical: - Allergies: 13:49 PENICILLINS; kb3 - PMHx: 13:49 GERD; Hypertensive disorder; pulmonary edema; Uterine CA; kb3 13:50 CAD; Congestive heart failure; kb3 - PSHx: 13:49 Appendectomy; tumor removal RT breast; kb3 - Immunization history:: Adult Immunizations up to date, Client reports receiving the 2nd dose of the Covid vaccine, Last tetanus immunization: up to date. - Social history:: Smoking status: Patient denies any tobacco usage or history of. ROS: 14:37 Eyes: Negative for injury, pain, redness, and discharge, ENT: Negative for injury, snw pain, and discharge, Neck: Negative for injury, pain, and swelling, Cardiovascular: Negative for chest pain, palpitations, and edema. 14:37 Abdomen/GI: Negative for abdominal pain, nausea, vomiting, diarrhea, and constipation, Back: Negative for injury and pain, : Negative for injury, bleeding, discharge, and swelling, MS/Extremity: Negative for injury and deformity. 14:37 Constitutional: Positive for malaise. 14:37 Respiratory: Positive for orthopnea, shortness of breath. Exam: 14:34 Head/Face: Normocephalic, atraumatic. Eyes: Pupils equal round and reactive to light, snw extra-ocular motions intact. Lids and lashes normal. Conjunctiva and sclera are non-icteric and not injected. Cornea within normal limits. Periorbital areas with no swelling, redness, or edema. ENT: Nares patent. No nasal discharge, no septal abnormalities noted. Tympanic membranes are normal and external auditory canals are clear. Oropharynx with no redness, swelling, or masses, exudates, or evidence of obstruction, uvula midline. Mucous membranes moist. Neck: Trachea midline, no thyromegaly or masses palpated, and no cervical lymphadenopathy. Supple, full range of motion without nuchal rigidity, or vertebral point tenderness. No Meningismus. Chest/axilla: Normal chest wall appearance and motion. Nontender with no deformity. No lesions are appreciated. 14:34 Abdomen/GI: Soft, non-tender, with normal bowel sounds. No distension or tympany. No guarding or rebound. No evidence of tenderness throughout. Back: No spinal tenderness. No costovertebral tenderness. Full range of motion. MS/ Extremity: Pulses equal, no cyanosis. Neurovascular intact. Full, normal range of motion. Neuro: Awake and alert, GCS 15, oriented to person, place, time, and situation. Cranial nerves II-XII grossly intact. Motor strength 5/5 in all extremities. Sensory grossly intact. Cerebellar exam normal. Normal gait. 14:34 Constitutional: The patient appears awake, pale. 14:34 Cardiovascular: Rate: tachycardic, Rhythm: regular, Heart sounds: murmur, systolic. 14:34 Cardiovascular: Edema: 4+ edema to level of left ankle, left foot, left toes, right ankle, right foot and right toes. 14:34 Respiratory: mild respiratory distress is noted, Respirations: shallow respirations, tachypnea, Breath sounds: are clear throughout. 14:34 Skin: Appearance: Color: jaundiced, Moisture: Vital Signs: 13:47 BP 122 / 55; Pulse 105; Resp 26; Pulse Ox 93% on 4 lpm NC; Weight 70.31 kg; Height 5 kb3 ft. 5 in. (165.10 cm); Pain 10/10; 16:21 BP 124 / 61; Pulse 95; Resp 20; Pulse Ox 95% on 4 lpm NC; em6 17:10 BP 130 / 70; Pulse 85; Resp 16; Pulse Ox 98% ; em6 18:28 BP 110 / 63; Pulse 88; Resp 14; Temp 98.1(O); Pulse Ox 100% on 4 lpm NC; em6 13:47 Body Mass Index 25.79 (70.31 kg, 165.10 cm) kb3 MDM: 13:45 Patient medically screened. snw 17:30 Data reviewed: vital signs, nurses notes. Data interpreted: Pulse oximetry: on 2L(s) snw per nasal canula, is 93 %. Interpretation: hypoxia. Plan: O2 by NC applied. Response to treatment: the patient's symptoms have markedly improved after treatment. Physician consultation: Dr Persaud was contacted at 17:32, regarding consult, would like admission per Dr. Valles Lot Porter. 17:37 Post IV fluid administration reassessment for Sepsis: Client not prescribed the 30 snw mL/kg IVF due to: concern for fluid overload. Focused Assessment performed: September 19, 2022 at 17:38 Heart: Irregularly irregular. Lungs: Diminished air movement noted. resp rate slowed, SpO2 up from 93% to 98% Current vital signs reviewed: Yes. 09/19 13:43 Order name: Basic Metabolic Panel; Complete Time: 15:06 snw 09/19 13:43 Order name: CBC with Diff; Complete Time: 14:34 snw 09/19 13:43 Order name: LFT's; Complete Time: 15:06 snw 09/19 13:43 Order name: Magnesium; Complete Time: 15:06 snw 09/19 13:43 Order name: NT PRO-BNP; Complete Time: 15:06 snw 09/19 13:43 Order name: PT-INR; Complete Time: 14:42 snw 09/19 13:43 Order name: Troponin HS; Complete Time: 15:06 snw 09/19 13:44 Order name: Lactate; Complete Time: 14:42 snw 09/19 13:45 Order name: TS; Complete Time: 15:33 snw 09/19 13:45 Order name: TSH; Complete Time: 15:09 snw 09/19 13:50 Order name: Blood Culture Adult (2) snw 09/19 14:25 Order name: SARS RAPID; Complete Time: 15:23 snw 09/19 14:26 Order name: CBC Smear Scan; Complete Time: 14:34 EDMS 09/19 13:43 Order name: XRAY Chest (1 view); Complete Time: 15:17 snw 09/19 13:43 Order name: EKG; Complete Time: 13:44 snw 09/19 13:43 Order name: Cardiac monitoring; Complete Time: 14:06 snw 09/19 13:43 Order name: EKG - Nurse/Tech; Complete Time: 14:56 snw 09/19 13:43 Order name: IV Saline Lock; Complete Time: 15:50 snw 09/19 13:43 Order name: Labs collected and sent; Complete Time: 15:50 snw 09/19 13:43 Order name: O2 Per Protocol; Complete Time: 14:09 snw 09/19 13:43 Order name: O2 Sat Monitoring; Complete Time: 14:09 snw 09/19 14:42 Order name: Lora; Complete Time: 15:51 snw 09/19 15:21 Order name: CT Chest For PE Angio; Complete Time: 16:39 snw 09/19 17:50 Order name: Lactate Sepsis 2 HR Follow-up; Complete Time: 18:03 EDMS EC:45 Rate is 93 beats/min. Rhythm is irregularly irregular, A fib. QRS interval is snw prolonged. Q waves are Present. Clinical impression: Atrial Fibrillation. Administered Medications: 15:51 Drug: Lasix (furosemide) 20 mg Route: IVP; Site: left antecubital; em6 16:27 Follow up: Response: No adverse reaction em6 17:30 Drug: NS 0.9% 1000 ml Route: IV; Rate: 75 ml/hr; Site: left antecubital; em6 18:56 Follow up: Response: No adverse reaction; IV Status: Infusion continued upon transfer; em6 IV Intake: 100ml Disposition Summary: 09/19/22 17:35 Transfer Ordered Transfer Location: [facility] snw Reason: Patient request snw Condition: Serious snw Problem: chronic snw Symptoms: have improved snw Accepting Physician: Dr. 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 Cori yu em6
--- NOTE | 2022-09-19 17:35 | ER ---
Nurse's Notes [facility] Name: Minal Phillips Age: 87 yrs Sex: Female : 1935 Arrival Date: 09/19/2022 Time: 13:30 Bed 19 Private MD: Levi Rosa E Diagnosis: Pleural effusion, not elsewhere classified;Acute on chronic combined systolic (congestive) and diastolic (congestive) heart failure;Chronic atrial fibrillation;Anemia, unspecified Presentation: 09/19 13:47 Chief complaint: Patient states: Pt reports epigastric pain and vomiting that began kb3 this morning. Coronavirus screen: Vaccine status: Patient reports receiving the 2nd dose of the covid vaccine. Client denies travel out of the [place] in the last 14 days. Ebola Screen: Patient negative for fever greater than or equal to 101.5 degrees Fahrenheit, and additional compatible Ebola Virus Disease symptoms Patient denies exposure to infectious person. Patient denies travel to an Ebola-affected area in the 21 days before illness onset. Initial Sepsis Screen: Does the patient meet any 2 criteria? RR > 20 per min. HR > 90 bpm. Yes Does the patient have a suspected source of infection? No. Patient's initial sepsis screen is negative. Risk Assessment: Do you want to hurt yourself or someone else? Patient reports no desire to harm self or others. Onset of symptoms was September 19, 2022. 13:47 Method Of Arrival: Wheelchair kb3 13:47 Acuity: JASMINA 3 kb3 Triage Assessment: 13:50 General: Appears in no apparent distress. uncomfortable, ill, Behavior is calm, kb3 cooperative. Pain: Complains of pain in epigastric area Pain does not radiate. Pain currently is 10 out of 10 on a pain scale. Quality of pain is described as burning. GI: Reports epigastric pain, vomiting. Historical: - Allergies: 13:49 PENICILLINS; kb3 - PMHx: 13:49 GERD; Hypertensive disorder; pulmonary edema; Uterine CA; kb3 13:50 CAD; Congestive heart failure; kb3 - PSHx: 13:49 Appendectomy; tumor removal RT breast; kb3 - Immunization history:: Adult Immunizations up to date, Client reports receiving the 2nd dose of the Covid vaccine, Last tetanus immunization: up to date. - Social history:: Smoking status: Patient denies any tobacco usage or history of. Screenin:04 Abuse screen: Denies threats or abuse. Nutritional screening: No deficits noted. em6 Tuberculosis screening: No symptoms or risk factors identified. 15:00 Fall Risk IV access (20 points). Ambulatory Aid- Crutches/Cane/Walker (15 pts). Gait- em6 Weak (10 pts.). Total Henriquez Fall Scale indicates High Risk Score (45 or more points). Fall prevention measures have been instituted. Side Rails Up X 2 Placed Close to Nursing Station Frequent Obs/Assessments Occuring Family Present and informed to notify staff if the need to leave the bedside As available patient and family educated on Fall Prevention Program and Strategies. Assessment: 14:07 General: Appears comfortable, Behavior is cooperative. Pain: Complains of pain in em6 abdomen and epigastric area Pain does not radiate. Pain currently is 7 out of 10 on a pain scale. Quality of pain is described as sharp. Neuro: Level of Consciousness is awake, alert, obeys commands, Oriented to person, place, time, situation. Cardiovascular: Rhythm is sinus rhythm. Respiratory: Airway is patent Respiratory effort is even, unlabored, Respiratory pattern is regular, symmetrical. GI: Abdomen is non-distended, Reports upper abdominal pain, nausea. : EENT: No signs and/or symptoms were reported regarding the EENT system. Derm: Skin is jaundiced. Musculoskeletal: Circulation, motion, and sensation intact. Swelling present in right leg and left leg. 15:10 Reassessment: No changes from previously documented assessment. Patient and/or family em6 updated on plan of care and expected duration. Pain level reassessed. Patient is alert, oriented x 3, equal unlabored respirations, skin warm/dry/pink. 16:10 Reassessment: No changes from previously documented assessment. Patient and/or family em6 updated on plan of care and expected duration. Pain level reassessed. Patient is alert, oriented x 3, equal unlabored respirations, skin warm/dry/pink. 17:10 Reassessment: No changes from previously documented assessment. Patient and/or family em6 updated on plan of care and expected duration. Pain level reassessed. Patient is alert, oriented x 3, equal unlabored respirations, skin warm/dry/pink. [facility] # [phone]. 18:10 Reassessment: No changes from previously documented assessment. Patient and/or family em6 updated on plan of care and expected duration. Pain level reassessed. Patient is alert, oriented x 3, equal unlabored respirations, skin warm/dry/pink. 19:01 Reassessment: report given to [place] personnel. em6 Vital Signs: 13:47 BP 122 / 55; Pulse 105; Resp 26; Pulse Ox 93% on 4 lpm NC; Weight 70.31 kg; Height 5 kb3 ft. 5 in. (165.10 cm); Pain 10/10; 16:21 BP 124 / 61; Pulse 95; Resp 20; Pulse Ox 95% on 4 lpm NC; em6 17:10 BP 130 / 70; Pulse 85; Resp 16; Pulse Ox 98% ; em6 18:28 BP 110 / 63; Pulse 88; Resp 14; Temp 98.1(O); Pulse Ox 100% on 4 lpm NC; em6 13:47 Body Mass Index 25.79 (70.31 kg, 165.10 cm) kb3 ED Course: 13:30 Patient arrived in ED. am2 13:30 Levi Rosa MD is Private Physician. am2 13:31 Neelam Lucas, REINA is Primary Nurse. ko1 13:42 [facility] Burroughs [facility]C [facility] snw 13:42 Néstor Phelan MD is Attending Physician. snw 13:49 Triage completed. kb3 13:50 Arm band placed on right wrist. 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 14:04 Placed in gown. Bed in low position. Call light in reach. Side rails up X2. Cardiac em6 monitor on. Pulse ox on. NIBP on. Warm blanket given. 14:58 XRAY Chest (1 view) In Process Unspecified. EDMS 15:35 Accessed peripheral vein via ultrasound, utilizing dynamic ultrasound technique using jd3 20G Nexia IV catheter ,sterile technique, per hospital protocol. Clean \T\ dry. Dressing intact. Good blood return. Flushes easily. 15:51 Lora cath inserted, using sterile technique, 16 Fr., by nc, balloon inflated, to em6 gravity drainage, clamped. urine specimen collected. 16:15 CT Chest For PE Angio In Process Unspecified. EDMS 16:27 Blood Culture Adult (2) Sent. em6 18:22 initiated transfer to [facility], pt accepted in transfer by dr devin sargent bd approval given by Donna Mitchell. 18:26 Report given to naresh abbott RN at [facility]. em6 19:00 No provider procedures requiring assistance completed. Patient transferred, IV remains em6 in place. Administered Medications: 15:51 Drug: Lasix (furosemide) 20 mg Route: IVP; Site: left antecubital; em6 16:27 Follow up: Response: No adverse reaction em6 17:30 Drug: NS 0.9% 1000 ml Route: IV; Rate: 75 ml/hr; Site: left antecubital; em6 18:56 Follow up: Response: No adverse reaction; IV Status: Infusion continued upon transfer; em6 IV Intake: 100ml Medication: 19:00 VIS not applicable for this client. em6 Intake: 18:56 IV: 100ml; Total: 100ml. em6 Outcome: 17:35 ER care complete, transfer ordered by . snsatish 19:00 Transferred by ground EMS to [facility], Transfer form completed. em6 19:00 Condition: stable 19:00 Discharge instructions given to patient, Instructed on the need for transfer, Demonstrated understanding of instructions. 19:01 Patient left the ED. em6 Signatures: Dispatcher [employer] EDMS Addie Brewer Shelly, PRODUCTION TEAM ADVISOR-C PRODUCTION TEAM ADVISOR-Csnw Fara Cordoba am2 Dilip Sanchez RN RN jd3 Melisa Parisi, REINA RN em6 Hermelinda Jamison, RN RN kb3 Neelam Lucas, REINA RN ko1 Corrections: (The following items were deleted from the chart) 16:21 14:07 Musculoskeletal: Circulation, motion, and sensation intact. em6 em6 18:30 18:28 BP 110 / 63; Pulse 88bpm; Resp 14bpm; Pulse Ox 100% 4 lpm Nasal Cannula; em6 em6
[2022-09-19 19:10] VITALS: BP 110/63; TEMP 98.1; O2SAT 100
--- NOTE | 2022-09-22 06:05 | EKG ---
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
== END 2022-09-19 19:01 | disposition short-term general hospital (02) ==
LOC: ER 13:28
DX: J90 Pleural effusion, not elsewhere classified (principal); I50.43 Acute on chronic combined systolic (congestive) and diastolic (congestive) heart failure; I48.19 Other persistent atrial fibrillation; D64.9 Anemia, unspecified; R10.13 Epigastric pain; I10 Essential (primary) hypertension; Z85.42 Personal history of malignant neoplasm of other parts of uterus; Z88.0 Allergy status to penicillin; Z20.822 Contact with and (suspected) exposure to COVID-19
CPT/HCPCS: 96361; 93005; 87040 ×2; 85025; 80048; 36415; 86900; 83735; 86850; 85610; 86901; 80076; 83605 ×2; 84443; 84484; 83880; 71275; 71045; 51702; 96374; 99285; 87811; Q9967; J1940; J7030

== ENCOUNTER 2022-10-07 13:26 | Emergency (ER) | payer OTHER ==
--- OUTSIDE RECORDS SUMMARY | 2022-10-07 13:45 | XMS REPORT | Continuity of Care Document ---
:1935 Author Organization [facility] t Address [address] [place] [address] Care Team Providers Name Role Phone Mike Putnamem Attending Clinician Unavailable NITIN MANE Attending Clinician Unavailable CAROLANN JIANG Attending Clinician Unavailable Jimy Pepper MD Attending Clinician Maria Aparicio MD Attending Clinician Cherry RUST, Brii Warren Attending Clinician [phone] Minal Forte MD Attending Clinician Carolann Jiang MD Attending Clinician [phone] Srinivasan Jeong MD Attending Clinician Nitin Mane Attending Clinician JIMY PEPPER Attending Clinician Unavailable Jose Holloway MD Attending Clinician Donis Cruz MD Attending Clinician [phone] DONIS CRUZ Attending Clinician Unavailable Virtual, Surgeon Attending Clinician Unavailable DONIS CRUZ Attending Clinician Unavailable ISAIAS SHARPE Attending Clinician Unavailable 1, [facility] Room Attending Clinician Unavailable CAYETANO WINTERS Attending Clinician Unavailable CHAPIS MUNROE Attending Clinician Unavailable Chapis Munroe Attending Clinician Ganatra, Nautam Bhailalbhai Attending Clinician Canales_M Attending Clinician Unavailable Ariella Shaffer Attending Clinician Unavailable Love-Mbayo_A_AH Attending Clinician Unavailable Iliana Hollins Attending Clinician [phone] Frank Putnam Admitting Clinician Unavailable Yadira Gaston Admitting Clinician Unavailable JIMY PEPPER Admitting Clinician Unavailable GANATRA, NAUTAM BHAILALBH Admitting Clinician Unavailable Ganatra, Nautam Bhailalbhai Admitting Clinician [phone] Canales_M Admitting Clinician Unavailable Love-Mbayo_A_AH Admitting Clinician Unavailable Payers Payer Name Policy Type Policy Number Effective Date Expiration Date S stanley [facility] [id number] 2021 MGD MCR 00:00:00 [facility] [id number] 2021 OON 00:00:00 [facility] [id number] [facility] [id number] 2021 (MEDICARE 00:00:00 REPLACEMENT HMO) [facility] - [id number] 2019 [place] 00:00:00 (MEDICARE REPLACEMENT/ADVAN TAGE - HMO) [place] [id number] [facility] Problems Condition Condition Condition Status Onset Resolution Last Treating Co mments Source Name Details Category Date Date Treatment Clinician Date Sepsis Sepsis Disease Active 2021-[address] [facility] 00 Aladdin Atrial Atrial Disease Active 2021-[address] [facility] [address] fibrillati fibrillati 0-31 Sofia kes on on 00:00: Medical 00 Aladdin Lactic Lactic Disease Active 2021-[address] [facility] [address] acidosis acidosis 0-31 [facility] 00[facility] 00 Center SOB SOB Disease Active 2021-[address] [facility] (shortness (shortness 0-31 Sofia kes of breath) of breath) 00:00: Me dical 00 Center Acute on Acute on Disease Active 2021-[facility] chronic chronic [facility] respirator respirator 00:00: Me dical y failure y failure 00 Cent er Coronary Coronary Disease Active 2021-[facility] artery artery 0[facility] disease disease 00:00: Medical 00 Aladdin 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 [facility] failure failure 00:00: Medical 00 Center Port-A-Cat Port-A-Cat Disease Active 2021-11 [facility] [address] in [address] h in place 0-05 Co llege 00:00: of 00 Medicin e 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 0-05 College disease disease 00:00: of 00 Medicin e Encounter Encounter Disease Active 2021-11 [facility] for for 0-05 [place] antineopla antineopla 00:00: of stic stic 00 Medicin chemothera chemothera e py py 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 9-14 Colleg e of both of both 00:00: of ovaries ovaries 00 Medicin e 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 9-14 [facility] disease disease 00:00: of involving involving 00 Medi [place] coronary coronary artery of artery of [place] heart heart without without angina angina pectoris pectoris Congestive Congestive Disease Active [facility] heart heart 9-14 College failure failure 00:00: of 00 Medicin e 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 9-14 [place] effusion effusion 00:00: of 00 Medicin e FALL FALL Diagnosis Active 2022-06-12 Mem oria Active 06-12 21:03:00 l 06/12/2022 00:00: Harish rodriguez 00 [place] FLUID FLUID Diagnosis Active 2022-06-22 Mem oria OVERLOAD, OVERLOAD, 06-12 21:57:00 l ACUTE CHF ACUTE CHF 00:00: Cristo suárez Active 00 06/12/2022 [facility] 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:00: 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 Essential Essential Problem Active Halima hall hypertensi Hypertensi 05-22 Rocio alcala on on 00:00: Practic 00 e Gastroesop Gastroesop Problem Active V illconstance hageal hageal 05-22 Family reflux Reflux 00:00: Practic disease Disease 00 e Arthritis Arthritis Problem Active Halima harmane 05-22 Family 00:00: Practic 00 e FLUID FLUID Diagnosis Active 2022-06-22 Mem oria OVERLOAD, OVERLOAD, 21:57:00 l UNSPECIFIE UNSPECIFIE He rmann D D Active [facility] HEART HEART Diagnosis Active 2022-06-22 Me moria FAILURE, FAILURE, 21:57:00 l UNSPECIFIE UNSPECIFIE He rmann D D Active [facility] Benign Benign Problem Active 2022-06-19 Sanya clementine essential essential 23:17:13 l hypertensi hypertensi He rmann on on (disorder) (disorder) Active Problem 06/19/2022 [facility] Dyslipidem Dyslipide Problem Active 2022-06-19 Memoria ia reshma 23:17:13 l (disorder) (disorder) He rmann Active Problem 06/19/2022 [facility] 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 (disorder) (disorder) Active Problem 06/19/2022 [facility] Arthritis Arthritis Problem Active Com mon of right of knee, Spirit knee right - [facility] [id number] Right Problem Active Common sciatic Spirit nerve pain - [facility] [id number] Primary Problem Active Comm on osteoarthr Spirit itis of - [facility] right knee [place] [facility] [id number] Pain in Problem Active Common joint of Spirit right knee - [facility] Allergies, Adverse Reactions, Alerts Allergy Allergy Status Severity Reaction(s) Onset Inactive Treating Comm ents Source Name Type Date Date Clinician Penicill Propensi Active [facility] to 08-18 adverse 00:00: Medical reaction 00 Center s PENICILL Allergy Active [facility] [place] 08-18 00:00: Medical 00 Center Penicill Propensi Active Pt does [facility] ins ty to 9-14 not College adverse 00:00: remember. of reaction 00 Medicin s to e drug Penicill DA Active [place] HIVES [facility] Aladdin PENICILL Allergy Active [facility] INS to Family substanc Practic e e penicill penicill Active Memori a in in chris [place] NO KNOWN Allergy Active [facility] Social History Social Habit Start Date Stop Date Quantity Comments Source History of Tobacco Common Spirit - Use [facility] History SDME [facility] Alcohol Std Drinks Medica l Center History SDME [facility] Alcohol Binge Medical Farnaz ter History [facility] Alcohol Comment Medical C enter History [facility] Transport Non-Med Medical Center Alcohol intake 2022-09-28 2022-09-[address] [facility] es 00:00:00 00:00:00 non-drinker Medical Cente r (finding) Exposure to 2022-09-10 2022-09-[address] [facility] SARS-CoV-2 (event) 00:00:00 06:50:00 Medica l Center History [facility] 2022-09-20 2022-09-[address] [facility] Transport Med 00:00:00 00:00:[address] History [facility] 2022-09-20 2022-09-[address] [facility] Housing Unable to 00:00:00 00:00:00 Medical Center Pay History [facility] 2022-09-20 2022-09-[address] [facility] Housing Places 00:00:00 00:00:00 Medical Ce nter Lived History [facility] 2022-09-20 2022-09-[address] [facility] Housing Homeless 00:00:00 00:00:00 Medical Center Last Year History [facility] 2022-08-23 2022-08-23 0 [facility] Colle ge Physical Activity 00:00:00 00:00:00 of Medi cine DPW History [facility] 2022-08-23 2022-08-23 0 [facility] ge Physical Activity 00:00:00 00:00:00 of Medi cine MPS Tobacco use and 2022-08-18 2022-08-[address] Sofia kes exposure 00:00:00 00:00:00 Medical Center History [facility] 2022-08-18 2022-08-[address] [facility] Alcohol Frequency 00:00:00 00:00:00 Medical Center Social History 2022-06-13 2022-06-13 Kaity brito 19:32:18 19:32:18 Sex Assigned At [address] [facility] Sofia kes 00:00:00 00:00:00 Medical Center Smoking Status Start Date Stop Date Source Never smoked tobacco [facility] Medications Ordered Filled Start Stop Current Ordering Indication Dosage Frequency Signature Comments Components Source Medication Medication Date Date Medication? Clinician (SIG) Name Name rosuvastati 2021-11 Yes 10mg QD Take [address] [facility] (CRESTOR) 1-10 tablet (10 Sofia kes 10 MG 00:00: mg total) Medical tablet 00 by mouth Center daily. aspirin 81 2021-11 Yes 81mg QD Take [address] MG EC 11-28 by mouth [facility] tablet 18:01: daily. Medical [address] [place] [address] albuterol 2021-11 Yes 2.5mg Q.25D Take 2.[address] (PROVENTIL) 1-09 mg by [facility]ukes 2.5 mg/0.5 18:01: nebulizati M edical mL Nebu 05 on 4 Center nebulizer (four) solution times daily. benzonatate 2021-11 Yes 200mg Take [address] (TESSALON) 1-09 mg by [facility]ukes 200 MG 18:01: mouth 3 Medical capsule 05 (three) Center times daily as needed for Cough. magnesium 2021-11 Yes 400mg QD Take [address] oxide 1-09 mg by Lukes (MAG-OX) 18:01: mouth Medical 400 mg 05 daily. Center (241.3 mg magnesium) tablet pantoprazol 2021-11 Yes 40mg QD Take [address] [facility] e 1-09 by mouth [facility]ukes (PROTONIX) 18:01: daily. Medic al 40 MG 05 Center tablet potassium 2021-11 Yes 10meq Q.5D Take [address] chloride 1-09 mEq by Lukes (KLOR-CON-M 18:01: mouth 2 Med ical ) 10 MEQ CR 05 (two) Center tablet times daily. bumetanide 2021-11 1mg Q.5D Take [address] (BUMEX) 1 11-28 by mouth 2 Jossue es MG tablet 16:25: 00:00 (two) Medica l 06 :00 times Center daily. metoprolol 2021-11 No 25mg Q.5D Take [address] tartrate 11-28 by mouth 2 Luke s (LOPRESSOR) 15:51: 00:00 (two) Medi melchor 25 MG 26 :00 times Center tablet daily. predniSONE 2021-11- No 20mg QD Take [address] (DELTASONE) 11-28 by mouth Jossue es 20 MG 15:51: 00:00 daily. Medical tablet 26 :00 Center losartan 2021-11- No 25mg QD Take [address] (COZAAR) 25 11-28 by mouth Jsosue es MG tablet 15:51: 00:00 daily. Medic al 26 :00 Center furosemide 2021-[address] (LASIX) 11-28 [facility] injection 13:00: 11:58 Medical 20 mg 00 :00 Center propranoloL 2021-11 Yes 5mg Q.5D Take 0.[address] (INDERAL) 11-28 tablets (5 Luke s 10 MG 00:00: mg total) Medical tablet 00 by mouth 2 Center (two) times daily. bumetanide 2021-11 Yes 1mg Q.5D Take 1 [facility] t (BUMEX) 1 11-28 tablet (1 [facility] MG tablet 00:00: mg total) Med ical 00 by mouth 2 Center (two) times daily. OXYGEN GAS 2021-11 Yes [facility] 0-11 [place] 08:36: of 45 Medicin e metoprolol 2021-11 Yes 25mg Take 1 [facility] (TOPROL-XL) 0-11 Tablet by Col lege 25 MG XL 00:00: mouth of tablet 00 daily. Medicin e OXYGEN GAS 2021-11 Yes [facility] 0-05 [place] 07:31: of 51 Medicin e hydrocodone 2021-11 Yes 1{tbl} Take 1 [facility] -acetaminop 0-05 Tablet by Col lege hen (NORCO) 00:00: mouth of 5-325 mg 00 every 4 Medicin tablet hours as e needed for Pain. Sennosides 2021-11 Yes 1{tbl} Take 1 [facility] my[facility] (SENNA) 8.6 0-05 Tablet by Col lege MG TABS 00:00: mouth of 00 daily. Medicin e hydrocodone 2021-11 Yes 1{tbl} Take 1 [facility] -acetaminop 0-05 Tablet by Col lege hen (NORCO) 00:00: mouth of 5-325 mg 00 every 4 Medicin tablet hours as e needed for Pain. Sennosides 2021-11 Yes 1{tbl} Take 1 [facility] my[facility] (SENNA) 8.6 0-05 Tablet by Col lege MG TABS 00:00: mouth of 00 daily. Medicin e aspirin 81 Yes 81mg QD Take [address] MG EC 9-30 by mouth [facility]ukes tablet 18:28: daily. [address] aspirin 81 Yes 81mg QD Take [address] MG EC 9-30 by mouth [facility]ukes tablet 18:28: daily. [address] aspirin 81 Yes 81mg QD Take [address] MG EC 9-30 by mouth [facility] tablet 18:28: daily. [address] magnesium Yes 400mg QD Take 400 [facility] [...] 44 (two) Center tablet times daily. magnesium 2022-0 Yes 400mg QD Take [address] oxide 9-29 mg by Lukes (MAG-OX) 11:09: mouth Medical 400 mg 44 daily. Center (241.3 mg magnesium) tablet metoprolol 2022-0 Yes 25mg Q.5D Take [address] tartrate 9-29 by mouth 2 [facility] (LOPRESSOR) 11:09: (two) Medic al 25 MG 44 times Center tablet daily. pantoprazol 2022-0 Yes 40mg QD Take [address] [facility] e 9-29 by mouth [facility]ukes (PROTONIX) 11:09: daily. Medic al 40 MG 44 Center tablet predniSONE 2-0 Yes 20mg QD Take [address] (DELTASONE) 9-29 by mouth Luke s 20 MG 11:09: daily. Medical tablet 44 Center losartan 2-0 Yes 25mg QD Take [address] (COZAAR) 25 9-29 by mouth Luke s MG tablet 11:09: daily. Medica l 44 Center potassium 2-0 Yes 10meq Q.5D Take [address] chloride 9-29 mEq by Lukes (KLOR-CON-M 11:09: mouth 2 Med ical ) 10 MEQ CR 44 (two) Center tablet times daily. magnesium 2-0 Yes 400mg QD Take [address] oxide 9-29 mg by Lukes (MAG-OX) 11:09: mouth Medical 400 mg 44 daily. Center (241.3 mg magnesium) tablet metoprolol 2-0 Yes 25mg Q.5D Take [address] tartrate 9-29 by mouth 2 [facility]ukes (LOPRESSOR) 11:09: (two) Medic al 25 MG 44 times Center tablet daily. pantoprazol 2022-0 Yes 40mg QD Take [address] [facility] e 9-29 by mouth [facility]ukes (PROTONIX) 11:09: daily. Medic al 40 MG 44 Center tablet predniSONE 2-0 Yes 20mg QD Take [address] (DELTASONE) 9-29 by mouth Luke s 20 MG 11:09: daily. Medical tablet 44 Center losartan 2022-0 Yes 25mg QD Take [address] (COZAAR) 25 9-29 by mouth Luke s MG tablet 11:09: daily. Medica l 44 Center potassium 2-0 Yes 10meq Q.5D Take [address] chloride 9-29 mEq by Lukes (KLOR-CON-M 11:09: mouth 2 Med ical ) 10 MEQ CR 44 (two) Center tablet times daily. benzonatate 2022-0 Yes 200mg Take [address] (TESSALON) 9-29 mg by [facility]ukes 200 MG 11:05: mouth 3 Medical capsule 38 (three) Center times daily as needed for Cough. bumetanide 2022-0 Yes 1mg Q.5D Take [address] (BUMEX) 1 9-29 by mouth 2 Luke s MG tablet 11:05: (two) Medical 38 times Center daily. benzonatate 2022-0 Yes 200mg Take [address] (TESSALON) 9-29 mg by [facility]ukes 200 MG 11:05: mouth 3 Medical capsule 38 (three) Center times daily as needed for Cough. bumetanide 2022-0 Yes 1mg Q.5D Take [address] (BUMEX) 1 9-29 by mouth 2 Luke s MG tablet 11:05: (two) Medical 38 times Center daily. benzonatate 2022-0 Yes 200mg Take [address] (TESSALON) 9-29 mg by [facility]ukes 200 MG 11:05: mouth 3 Medical capsule 38 (three) Center times daily as needed for Cough. bumetanide 2022-0 Yes 1mg Q.5D Take [address] (BUMEX) 1 9-29 by mouth 2 Luke s MG tablet 11:05: (two) Medical 38 times Center daily. albuterol 2022-0 Yes 2.5mg Q.25D Take 2.[address] (PROVENTIL) 9-29 mg by Lukes 2.5 mg/0.5 11:03: nebulizati M edical mL Nebu 11 on 4 Center nebulizer (four) solution times daily. albuterol 2022-0 Yes 2.5mg Q.25D Take 2.[address] (PROVENTIL) 9-29 mg by Lukes 2.5 mg/0.5 11:03: nebulizati M edical mL Nebu 11 on 4 Center nebulizer (four) solution times daily. albuterol 2022-0 Yes 2.5mg Q.25D Take 2.[address] (PROVENTIL) 9-29 mg by Lukes 2.5 mg/0.5 11:03: nebulizati Patricia edical mL Nebu 11 on 4 Center [...] tablet 00:00: of 00 Medicin e metoprolol 2021-0 2021- No 25mg Take 25 mg [facility] (LOPRESSOR) 9-10 10-11 by mouth. Co llege [...] Memoria 7-29 (Same As: l 22:00: Bumex) Bumex No Notes: Memoria 7-29 (Same As: l 22:00: Bumex) Bumex No Notes: Memoria 7-29 (Same As: l 22:00: Bumex) Bumex No Notes: Memoria 7-29 (Same As: l 22:00: Bumex) Bumex No Notes: Memoria 7-29 (Same As: l 22:00: Bumex) Bumex No Notes: Memoria 7-29 (Same As: l 22:00: Bumex) Micro-K 10 Yes 10 mEq = 1 M emoria oral 7-29 cap, PO, l capsule, 16:31: BID, # 180 Her viera extended 00 cap, 0 release Refill(s), Pharmacy: [facility], 162.56, cm, 06/13/22 14:35:00 CDT, Height, 80.057, kg, 06/13/22 14:35:00 CDT, Weight Micro-K 10 Yes 10 mEq = 1 M emoria oral 7-29 cap, PO, l capsule, 16:31: BID, # 180 Her viera extended 00 cap, 0 release Refill(s), Pharmacy: [facility], 162.56, cm, 06/13/22 14:35:00 CDT, Height, 80.057, kg, 06/13/22 14:35:00 CDT, Weight Micro-K 10 Yes 10 mEq = 1 M emoria oral 7-29 cap, PO, l capsule, 16:31: BID, # 180 Her viera extended 00 cap, 0 release Refill(s), Pharmacy: [facility], 162.56, cm, 06/13/22 14:35:00 CDT, Height, 80.057, kg, 06/13/22 14:35:00 CDT, Weight Micro-K 10 Yes 10 mEq = 1 M emoria oral 7-29 cap, PO, l capsule, 16:31: BID, # 180 Her viera extended 00 cap, 0 release Refill(s), Pharmacy: [facility], 162.56, cm, 06/13/22 14:35:00 CDT, Height, 80.057, kg, 06/13/22 14:35:00 CDT, Weight Micro-K 10 2022-0 Yes 10 mEq = 1 M emoria oral 7-29 cap, PO, l capsule, 16:31: BID, # 180 Her viera extended 00 cap, 0 release Refill(s), Pharmacy: [facility], 162.56, cm, 06/13/22 14:35:00 CDT, Height, 80.057, kg, 06/13/22 14:35:00 CDT, Weight Micro-K 10 2021-0 Yes 10 mEq = 1 M emoria oral 7-29 cap, PO, l capsule, 16:31: BID, # 180 Her viera extended 00 cap, 0 release Refill(s), Pharmacy: [facility], 162.56, cm, 06/13/22 14:35:00 CDT, Height, 80.057, kg, 06/13/22 14:35:00 CDT, Weight pantoprazol 2-0 Yes 40 mg = 1 M emoria e 40 mg 7-29 tab, PO, l oral 16:30: Daily, # [place] enteric 00 90 tab, 0 coated Refill(s), tablet Pharmacy: [facility], 162.56, cm, 06/13/22 14:35:00 CDT, Height, 80.057, kg, 06/13/22 14:35:00 CDT, Weight magnesium 2-0 Yes 400 mg = 1 Me moria oxide 400 7-29 tab, PO, l mg oral 16:30: Daily, X Harish n tablet 00 day, # 30 tab, 0 Refill(s), Pharmacy: [facility], 162.56, cm, 06/13/22 14:35:00 CDT, Height, 80.057, kg, 06/13/22 14:35:00 CDT, Weight pantoprazol 2-0 Yes 40 mg = 1 M emoria e 40 mg 7-29 tab, PO, l oral 16:30: Daily, # [place] enteric 00 90 tab, 0 coated Refill(s), tablet Pharmacy: [facility], 162.56, cm, 06/13/22 14:35:00 CDT, Height, 80.057, kg, 06/13/22 14:35:00 CDT, Weight magnesium 2022-0 Yes 400 mg = 1 Me moria oxide 400 7-29 tab, PO, l mg oral 16:30: Daily, X Harish n tablet 00 30 day, # 30 tab, 0 Refill(s), Pharmacy: [facility], 162.56, cm, 06/13/22 14:35:00 CDT, Height, 80.057, kg, 06/13/22 14:35:00 CDT, Weight pantoprazol 2022-0 Yes 40 mg = 1 M emoria e 40 mg 7-29 tab, PO, l oral 16:30: Daily, # [place] enteric 00 90 tab, 0 coated Refill(s), tablet Pharmacy: [facility], 162.56, cm, 06/13/22 14:35:00 CDT, Height, 80.057, kg, 06/13/22 14:35:00 CDT, Weight magnesium 2022-0 Yes 400 mg = 1 Me moria oxide 400 7-29 tab, PO, l mg oral 16:30: Daily, X Harish n tablet 30 day, # 30 tab, 0 Refill(s), Pharmacy: [facility], 162.56, cm, 06/13/22 14:35:00 CDT, Height, 80.057, kg, 06/13/22 14:35:00 CDT, Weight pantoprazol 2022-0 Yes 40 mg = 1 M emoria e 40 mg 7-29 tab, PO, l oral 16:30: Daily, # [place] enteric 00 90 tab, 0 coated Refill(s), tablet Pharmacy: [facility], 162.56, cm, 06/13/22 14:35:00 CDT, Height, 80.057, kg, 06/13/22 14:35:00 CDT, Weight magnesium 2022-0 Yes 400 mg = 1 Me moria oxide 400 7-29 tab, PO, l mg oral 16:30: Daily, X Harish n tablet 30 day, # 30 tab, 0 Refill(s), Pharmacy: [facility], 162.56, cm, 06/13/22 14:35:00 CDT, Height, 80.057, kg, 06/13/22 14:35:00 CDT, Weight pantoprazol 2-0 Yes 40 mg = 1 M emoria e 40 mg 7-29 tab, PO, l oral 16:30: Daily, # [place] enteric 00 90 tab, 0 coated Refill(s), tablet Pharmacy: [facility], 162.56, cm, 06/13/22 14:35:00 CDT, Height, 80.057, kg, 06/13/22 14:35:00 CDT, Weight magnesium 2-0 Yes 400 mg = 1 Me moria oxide 400 7-29 tab, PO, l mg oral 16:30: Daily, X Harish n tablet day, # 30 tab, 0 Refill(s), Pharmacy: [facility], 162.56, cm, 06/13/22 14:35:00 CDT, Height, 80.057, kg, 06/13/22 14:35:00 CDT, Weight pantoprazol 2021-0 Yes 40 mg = 1 M emoria e 40 mg 7-29 tab, PO, l oral 16:30: Daily, # [place] enteric 00 90 tab, 0 coated Refill(s), tablet Pharmacy: [facility], 162.56, cm, 06/13/22 14:35:00 CDT, Height, 80.057, kg, 06/13/22 14:35:00 CDT, Weight magnesium 2021-0 Yes 400 mg = 1 Me moria oxide 400 7-29 tab, PO, l mg oral 16:30: Daily, X Harish n tablet day, # 30 tab, 0 Refill(s), Pharmacy: [facility], 162.56, cm, 06/13/22 14:35:00 CDT, Height, 80.057, kg, 06/13/22 14:35:00 CDT, Weight losartan 25 2-0 Yes 25 mg = 1 M emoria mg oral 7-29 tab, PO, l tablet 16:29: Daily, # [place] 00 90 tab, 1 Refill(s), Pharmacy: [facility], 162.56, cm, 06/13/22 14:35:00 CDT, Height, 80.057, kg, 06/13/22 14:35:00 CDT, Weight losartan 25 2-0 Yes 25 mg = 1 M emoria mg oral 7-29 tab, PO, l tablet 16:29: Daily, # Tomas 00 90 tab, 1 Refill(s), Pharmacy: [facility], 162.56, cm, 06/13/22 14:35:00 CDT, Height, 80.057, kg, 06/13/22 14:35:00 CDT, Weight losartan 25 2-0 Yes 25 mg = 1 M emoria mg oral 7-29 tab, PO, l tablet 16:29: Daily, # [place] 00 90 tab, 1 Refill(s), Pharmacy: [facility], 162.56, cm, 06/13/22 14:35:00 CDT, Height, 80.057, kg, 06/13/22 14:35:00 CDT, Weight losartan 25 2-0 Yes 25 mg = 1 M emoria mg oral 7-29 tab, PO, l tablet 16:29: Daily, # [place] 00 90 tab, 1 Refill(s), Pharmacy: [facility], 162.56, cm, 06/13/22 14:35:00 CDT, Height, 80.057, kg, 06/13/22 14:35:00 CDT, Weight losartan 25 2021-0 Yes 25 mg = 1 M emoria mg oral 7-29 tab, PO, l tablet 16:29: Daily, # [place] 00 90 tab, 1 Refill(s), Pharmacy: [facility], 162.56, cm, 06/13/22 14:35:00 CDT, Height, 80.057, kg, 06/13/22 14:35:00 CDT, Weight losartan 25 2-0 Yes 25 mg = 1 M emoria mg oral 7-29 tab, PO, l tablet 16:29: Daily, # [place] 00 90 tab, 1 Refill(s), Pharmacy: [facility], 162.56, cm, 06/13/22 14:35:00 CDT, Height, 80.057, kg, 06/13/22 14:35:00 CDT, Weight predniSONE 2022-0 Yes 20 mg = 1 Me moria 20 mg oral 7-29 tab, PO, l tablet 16:28: Daily, X 3 Alejandra nn 00 day, # 3 tab, 0 Refill(s), Pharmacy: [facility], 162.56, cm, 06/13/22 14:35:00 CDT, Height, 80.057, kg, 06/13/22 14:35:00 CDT, Weight metoprolol 2-0 Yes 25 mg = 1 Me moria tartrate 25 7-29 tab, PO, l mg oral 16:28: BID, # 60 Alejandra nn tablet 00 tab, 0 Refill(s), Pharmacy: [facility], 162.56, cm, 06/13/22 14:35:00 CDT, Height, 80.057, kg, 06/13/22 14:35:00 CDT, Weight predniSONE 2021-0 Yes 20 mg = 1 Me moria 20 mg oral 7-29 tab, PO, l tablet 16:28: Daily, X 3 Alejandra nn day, # 3 tab, 0 Refill(s), Pharmacy: [facility], 162.56, cm, 06/13/22 14:35:00 CDT, Height, 80.057, kg, 06/13/22 14:35:00 CDT, Weight metoprolol 2021-0 Yes 25 mg = 1 Me moria tartrate 25 7-29 tab, PO, l mg oral 16:28: BID, # 60 Alejandra nn tablet 00 tab, 0 Refill(s), Pharmacy: [facility], 162.56, cm, 06/13/22 14:35:00 CDT, Height, 80.057, kg, 06/13/22 14:35:00 CDT, Weight predniSONE 2021-0 Yes 20 mg = 1 Me moria 20 mg oral 7-29 tab, PO, l tablet 16:28: Daily, X 3 Alejandra nn 00 day, # 3 tab, 0 Refill(s), Pharmacy: [facility], 162.56, cm, 06/13/22 14:35:00 CDT, Height, 80.057, kg, 06/13/22 14:35:00 CDT, Weight metoprolol 2-0 Yes 25 mg = 1 Me moria tartrate 25 7-29 tab, PO, l mg oral 16:28: BID, # 60 Alejandra nn tablet 00 tab, 0 Refill(s), Pharmacy: [facility], 162.56, cm, 06/13/22 14:35:00 CDT, Height, 80.057, kg, 06/13/22 14:35:00 CDT, Weight predniSONE 2-0 Yes 20 mg = 1 Me moria 20 mg oral 7-29 tab, PO, l tablet 16:28: Daily, X 3 Alejandra nn 00 day, # 3 tab, 0 Refill(s), Pharmacy: [facility], 162.56, cm, 06/13/22 14:35:00 CDT, Height, 80.057, kg, 06/13/22 14:35:00 CDT, Weight metoprolol 2-0 Yes 25 mg = 1 Me moria tartrate 25 7-29 tab, PO, l mg oral 16:28: BID, # 60 Alejandra nn tablet 00 tab, 0 Refill(s), Pharmacy: [facility], 162.56, cm, 06/13/22 14:35:00 CDT, Height, 80.057, kg, 06/13/22 14:35:00 CDT, Weight predniSONE 2021-0 Yes 20 mg = 1 Me moria 20 mg oral 7-29 tab, PO, l tablet 16:28: Daily, X 3 Alejandra nn 00 day, # 3 tab, 0 Refill(s), Pharmacy: [facility], 162.56, cm, 06/13/22 14:35:00 CDT, Height, 80.057, kg, 06/13/22 14:35:00 CDT, Weight metoprolol 2-0 Yes 25 mg = 1 Me moria tartrate 25 7-29 tab, PO, l mg oral 16:28: BID, # 60 Alejandra nn tablet 00 tab, 0 Refill(s), Pharmacy: [facility], 162.56, cm, 06/13/22 14:35:00 CDT, Height, 80.057, kg, 06/13/22 14:35:00 CDT, Weight predniSONE 2-0 Yes 20 mg = 1 Me moria 20 mg oral 7-29 tab, PO, l tablet 16:28: Daily, X 3 Alejandra nn 00 day, # 3 tab, 0 Refill(s), Pharmacy: [facility], 162.56, cm, 06/13/22 14:35:00 CDT, Height, 80.057, kg, 06/13/22 14:35:00 CDT, Weight metoprolol 2021-0 Yes 25 mg = 1 Me moria tartrate 25 7-29 tab, PO, l mg oral 16:28: BID, # 60 Alejandra nn tablet 00 tab, 0 Refill(s), Pharmacy: [facility], 162.56, cm, 06/13/22 14:35:00 CDT, Height, 80.057, kg, 06/13/22 14:35:00 CDT, Weight benzonatate Yes 200 mg = 1 Memoria 200 mg oral 7-29 cap, PO, l capsule 16:27: TID, do Tomas 00 not crush or chew, X 10 day, # 30 cap, 0 Refill(s), Pharmacy: [facility], 162.56, cm, 06/13/22 14:35:00 CDT, Height, 80.057, kg, 06/13/22 14:35:00 CDT, Weight bumetanide 0 Yes 1 mg = 1 Mem oria 1 mg oral 7-29 tab, PO, l tablet 16:27: BID, # 60 Harish n 00 tab, 1 Refill(s), Pharmacy: [facility], 162.56, cm, 06/13/22 14:35:00 CDT, Height, 80.057, kg, 06/13/22 14:35:00 CDT, Weight dextrometho 2021-0 Yes 10 mL, PO, Memoria rphan-guaiF 7-29 Q6H, PRN l ENesin 10 16:27: Cough, X Herm nupur mg-200 mg/5 00 14 day, # mL oral 120 mL, 0 liquid Refill(s), Pharmacy: [facility], 162.56, cm, 06/13/22 14:35:00 CDT, Height, 80.057, kg, 06/13/22 14:35:00 CDT, Weight benzonatate 2021-0 Yes 200 mg = 1 Memoria 200 mg oral 7-29 cap, PO, l capsule 16:27: TID, do [place] 00 not crush or chew, X 10 day, # 30 cap, 0 Refill(s), Pharmacy: [facility], 162.56, cm, 06/13/22 14:35:00 CDT, Height, 80.057, kg, 06/13/22 14:35:00 CDT, Weight bumetanide 2021-0 Yes 1 mg = 1 Mem oria 1 mg oral 7-29 tab, PO, l tablet 16:27: BID, # 60 Harish n 00 tab, 1 Refill(s), Pharmacy: [facility], 162.56, cm, 06/13/22 14:35:00 CDT, Height, 80.057, kg, 06/13/22 14:35:00 CDT, Weight dextrometho 2021-0 Yes 10 mL, PO, Memoria rphan-guaiF 7-29 Q6H, PRN l ENesin 10 16:27: Cough, X Herm nupur mg-200 mg/5 00 14 day, # mL oral 120 mL, 0 liquid Refill(s), Pharmacy: [facility], 162.56, cm, 06/13/22 14:35:00 CDT, Height, 80.057, kg, 06/13/22 14:35:00 CDT, Weight benzonatate 2021-0 Yes 200 mg = 1 Memoria 200 mg oral 7-29 cap, PO, l capsule 16:27: TID, do [place] 00 not crush or chew, X 10 day, # 30 cap, 0 Refill(s), Pharmacy: [facility], 162.56, cm, 06/13/22 14:35:00 CDT, Height, 80.057, kg, 06/13/22 14:35:00 CDT, Weight bumetanide 2021-0 Yes 1 mg = 1 Mem oria 1 mg oral 7-29 tab, PO, l tablet 16:27: BID, # 60 Harish n 00 tab, 1 Refill(s), Pharmacy: [facility], 162.56, cm, 06/13/22 14:35:00 CDT, Height, 80.057, kg, 06/13/22 14:35:00 CDT, Weight dextrometho 2-0 Yes 10 mL, PO, Memoria rphan-guaiF 7-29 Q6H, PRN l ENesin 10 16:27: Cough, X Herm nupur mg-200 mg/5 00 14 day, # mL oral 120 mL, 0 liquid Refill(s), Pharmacy: [facility], 162.56, cm, 06/13/22 14:35:00 CDT, Height, 80.057, kg, 06/13/22 14:35:00 CDT, Weight benzonatate 2021-0 Yes 200 mg = 1 Memoria 200 mg oral 7-29 cap, PO, l capsule 16:27: TID, do [place] 00 not crush or chew, X 10 day, # 30 cap, 0 Refill(s), Pharmacy: [facility], 162.56, cm, 06/13/22 14:35:00 CDT, Height, 80.057, kg, 06/13/22 14:35:00 CDT, Weight bumetanide 2021-0 Yes 1 mg = 1 Mem oria 1 mg oral 7-29 tab, PO, l tablet 16:27: BID, # 60 Harish n 00 tab, 1 Refill(s), Pharmacy: [facility], 162.56, cm, 06/13/22 14:35:00 CDT, Height, 80.057, kg, 06/13/22 14:35:00 CDT, Weight dextrometho 2-0 Yes 10 mL, PO, Memoria rphan-guaiF 7-29 Q6H, PRN l ENesin 10 16:27: Cough, X Herm nupur mg-200 mg/5 00 14 day, # mL oral 120 mL, 0 liquid Refill(s), Pharmacy: [facility], 162.56, cm, 06/13/22 14:35:00 CDT, Height, 80.057, kg, 06/13/22 14:35:00 CDT, Weight benzonatate 2-0 Yes 200 mg = 1 Memoria 200 mg oral 7-29 cap, PO, l capsule 16:27: TID, do [place]omas 00 not crush or chew, X 10 day, # 30 cap, 0 Refill(s), Pharmacy: [facility], 162.56, cm, 06/13/22 14:35:00 CDT, Height, 80.057, kg, 06/13/22 14:35:00 CDT, Weight bumetanide 2021-0 Yes 1 mg = 1 Mem oria 1 mg oral 7-29 tab, PO, l tablet 16:27: BID, # 60 Harish n 00 tab, 1 Refill(s), Pharmacy: [facility], 162.56, cm, 06/13/22 14:35:00 CDT, Height, 80.057, kg, 06/13/22 14:35:00 CDT, Weight dextrometho 2021-0 Yes 10 mL, PO, Memoria rphan-guaiF 7-29 Q6H, PRN l ENesin 10 16:27: Cough, X Herm nupur mg-200 mg/5 00 14 day, # mL oral 120 mL, 0 liquid Refill(s), Pharmacy: [facility], 162.56, cm, 06/13/22 14:35:00 CDT, Height, 80.057, kg, 06/13/22 14:35:00 CDT, Weight benzonatate 2021-0 Yes 200 mg = 1 Memoria 200 mg oral 7-29 cap, PO, l capsule 16:27: TID, do [place] 00 not crush or chew, X 10 day, # 30 cap, 0 Refill(s), Pharmacy: [facility], 162.56, cm, 06/13/22 14:35:00 CDT, Height, 80.057, kg, 06/13/22 14:35:00 CDT, Weight bumetanide 2021-0 Yes 1 mg = 1 Mem oria 1 mg oral 7-29 tab, PO, l tablet 16:27: BID, # 60 Harish n 00 tab, 1 Refill(s), Pharmacy: [facility], 162.56, cm, 06/13/22 14:35:00 CDT, Height, 80.057, kg, 06/13/22 14:35:00 CDT, Weight dextrometho 2021-0 Yes 10 mL, PO, Memoria rphan-guaiF 7-29 Q6H, PRN l ENesin 10 16:27: Cough, X Herm nupur mg-200 mg/5 00 14 day, # mL oral 120 mL, 0 liquid Refill(s), Pharmacy: [facility], 162.56, cm, 06/13/22 14:35:00 CDT, Height, 80.057, kg, 06/13/22 14:35:00 CDT, Weight albuterol-i 2021-0 Yes 3 mL, NEB, Memoria pratropium 7-29 RQ4H, # l 2.5-0.5 mg 16:26: 540 mL, 0 He rmann inhalation 00 Refill(s), solution Pharmacy: [facility], 162.56, cm, 06/13/22 14:35:00 CDT, Height, 80.057, kg, 06/13/22 14:35:00 CDT, Weight aspirin 81 2021-0 Yes 81 mg = 1 Me moria mg tablet, 7-29 tab, PO, l enteric 16:26: Daily, # Harish n coated 00 90 tab, 0 Refill(s), Pharmacy: [facility], 162.56, cm, 06/13/22 14:35:00 CDT, Height, 80.057, kg, 06/13/22 14:35:00 CDT, Weight albuterol-i 2021-0 Yes 3 mL, NEB, Memoria pratropium 7-29 RQ4H, # l 2.5-0.5 mg 16:26: 540 mL, 0 He rmann inhalation 00 Refill(s), solution Pharmacy: [facility], 162.56, cm, 06/13/22 14:35:00 CDT, Height, 80.057, kg, 06/13/22 14:35:00 CDT, Weight aspirin 81 2021-0 Yes 81 mg = 1 Me moria mg tablet, 7-29 tab, PO, l enteric 16:26: Daily, # Harish n coated 00 90 tab, 0 Refill(s), Pharmacy: [facility], 162.56, cm, 06/13/22 14:35:00 CDT, Height, 80.057, kg, 06/13/22 14:35:00 CDT, Weight albuterol-i 2022-0 Yes 3 mL, NEB, Memoria pratropium 7-29 RQ4H, # l 2.5-0.5 mg 16:26: 540 mL, 0 He rmann inhalation 00 Refill(s), solution Pharmacy: [facility], 162.56, cm, 06/13/22 14:35:00 CDT, Height, 80.057, kg, 06/13/22 14:35:00 CDT, Weight aspirin 81 2-0 Yes 81 mg = 1 Me moria mg tablet, 7-29 tab, PO, l enteric 16:26: Daily, # Harish n coated 00 90 tab, 0 Refill(s), Pharmacy: [facility], 162.56, cm, 06/13/22 14:35:00 CDT, Height, 80.057, kg, 06/13/22 14:35:00 CDT, Weight albuterol-i 2-0 Yes 3 mL, NEB, Memoria pratropium 7-29 RQ4H, # l 2.5-0.5 mg 16:26: 540 mL, 0 He rmann inhalation 00 Refill(s), solution Pharmacy: [facility], 162.56, cm, 06/13/22 14:35:00 CDT, Height, 80.057, kg, 06/13/22 14:35:00 CDT, Weight aspirin 81 2-0 Yes 81 mg = 1 Me moria mg tablet, 7-29 tab, PO, l enteric 16:26: Daily, # Harish n coated 00 90 tab, 0 Refill(s), Pharmacy: [facility], 162.56, cm, 06/13/22 14:35:00 CDT, Height, 80.057, kg, 06/13/22 14:35:00 CDT, Weight albuterol-i 2022-0 Yes 3 mL, NEB, Memoria pratropium 7-29 RQ4H, # l 2.5-0.5 mg 16:26: 540 mL, 0 He rmann inhalation 00 Refill(s), solution Pharmacy: [facility], 162.56, cm, 06/13/22 14:35:00 CDT, Height, 80.057, kg, 06/13/22 14:35:00 CDT, Weight aspirin 81 2021-0 Yes 81 mg = 1 Me moria mg tablet, 7-29 tab, PO, l enteric 16:26: Daily, # Harish n coated 00 90 tab, 0 Refill(s), Pharmacy: [facility], 162.56, cm, 06/13/22 14:35:00 CDT, Height, 80.057, kg, 06/13/22 14:35:00 CDT, Weight albuterol-i Yes 3 mL, NEB, Memoria pratropium 06-17 RQ4H, # l 2.5-0.5 mg 16:26: 540 mL, 0 He rmann inhalation 00 Refill(s), solution Pharmacy: [facility], 162.56, cm, 06/13/22 14:35:00 CDT, Height, 80.057, kg, 06/13/22 14:35:00 CDT, Weight aspirin 81 0 Yes 81 mg = 1 Me moria mg tablet, - tab, PO, l enteric 16:26: Daily, # Harish n coated 00 90 tab, 0 Refill(s), Pharmacy: [facility], 162.56, cm, 06/13/22 14:35:00 CDT, Height, 80.057, kg, 06/13/22 14:35:00 CDT, Weight magnesium No Notes: Memori a sulfate 06-17 WASTE: F/P l 14:02: - Sink; E - Municipal Trash Bin potassium Yes /= 14 Memoria chloride 06-17 Belgian, l 14:02: march dissolve each 20 mEq tablet in 4 oz of water. Allow about 2 minutes for the tablets to disintegra te. Stir before giving to prepare slurry and administer . Please exclude patient's with feeding tube less than 14 Belgian (Dobhoff, J-tube, etc) and pediatric and patients. magnesium No Notes: Memori a sulfate 7-29 WASTE: F/P l 14:02: - Sink; E Tomas 00 - Municipal Trash Bin potassium Yes /= 14 Memoria chloride 7-29 Belgian, l 14:02: march [place] 00 dissolve each 20 mEq tablet in 4 oz of water. Allow about 2 minutes for the tablets to disintegra te. Stir before giving to prepare slurry and administer . Please exclude patient's with feeding tube less than 14 Belgian (Dobhoff, J-tube, etc) and pediatric and patients. magnesium No Notes: Memori a sulfate 7-29 WASTE: F/P l 14:02: - Sink; E Tomas 00 - Municipal Trash Bin potassium Yes /= 14 Memoria chloride 7-29 Belgian, l 14:02: march [place] 00 dissolve each 20 mEq tablet in 4 oz of water. Allow about 2 minutes for the tablets to disintegra te. Stir before giving to prepare slurry and administer . Please exclude patient's with feeding tube less than 14 Belgian (Dobhoff, J-tube, etc) and pediatric and patients. magnesium No Notes: Memori a sulfate 7-29 WASTE: F/P l 14:02: - Sink; Tomas 00 - Municipal Trash Bin potassium Yes /= 14 Memoria chloride 7-29 Belgian, l 14:02: march [place] 00 dissolve each 20 mEq tablet in 4 oz of water. Allow about 2 minutes for the tablets to disintegra te. Stir before giving to prepare slurry and administer . Please exclude patient's with feeding tube less than 14 Belgian (Dobhoff, J-tube, etc) and pediatric and patients. magnesium No Notes: Memori a sulfate 7-29 WASTE: F/P l 14:02: - Sink; E [place] 00 - Municipal Trash Bin potassium Yes /= 14 Memoria chloride 7-29 Belgian, l 14:02: march [place] 00 dissolve each 20 mEq tablet in 4 oz of water. Allow about 2 minutes for the tablets to disintegra te. Stir before giving to prepare slurry and administer . Please exclude patient's with feeding tube less than 14 Belgian (Dobhoff, J-tube, etc) and pediatric and patients. magnesium No Notes: Memori a sulfate 7-29 WASTE: F/P l 14:02: - Sink; E - Municipal Trash Bin potassium Yes /= 14 Memoria chloride 06-17 Belgian, l 14:02: march dissolve each 20 mEq tablet in 4 oz of water. Allow about 2 minutes for the tablets to disintegra te. Stir before giving to prepare slurry and administer . Please exclude patient's with feeding tube less than 14 Belgian (Dobhoff, J-tube, etc) and pediatric and patients. ipratropium Yes 3 mL, NEB, [facility] -albuterol 06-17 RQ4H, # Colleg e (DUO-NEB) 00:00: 540 mL, 0 of 0.5-2.5 (3) 00 Refill(s), Me dicin MG/3ML Pharmacy: e [facility] Page, 162.56, cm, 06/13/22 14:35:00 CDT, Height, 80.057, kg, 06/13/22 14:35:00 CDT, Weight Aspirin 81 0 Yes 81 mg = 1 Ba ylor MG tablet 06-17 tab, PO, Colleg e 00:00: Daily, # of 00 90 tab, 0 Medicin Refill(s), e Pharmacy: [facility], 162.56, cm, 06/13/22 14:35:00 CDT, Height, 80.057, kg, 06/13/22 14:35:00 CDT, Weight Dextrometho Yes 10 mL, PO, [facility] rphan-guaiF 06-17 Q6H, PRN Flores ege ENesin 00:00: Cough, X of 10-200 00 14 day, # Medicin MG/5ML LIQD 120 mL, 0 e Refill(s), Pharmacy: [facility], 162.56, cm, 06/13/22 14:35:00 CDT, Height, 80.057, kg, 06/13/22 14:35:00 CDT, Weight losartan 2021-0 Yes 25mg Take 25 mg Hoyt mykel (COZAAR) 25 06-17 by mouth Folres ege MG tablet 00:00: daily. of 00 Medicin e magnesium 2022-0 Yes 400 mg = 1 Ba ylor oxide - tab, PO, College (MAG-OX) 00:00: Daily, X of 400 MG 30 day, # Medicin tablet 30 tab, 0 e Refill(s), Pharmacy: [facility], 162.56, cm, 06/13/22 14:35:00 CDT, Height, 80.057, kg, 06/13/22 14:35:00 CDT, Weight pantoprazol 2021-0 Yes 40mg Take 40 mg [facility] e - by mouth [place] (PROTONIX) 00:00: daily. of 40 MG 00 Medicin tablet e ipratropium 0 Yes 3 mL, NEB, [facility] -albuterol 06-17 RQ4H, # Colleg e (DUO-NEB) 00:00: 540 mL, 0 of 0.5-2.5 (3) 00 Refill(s), Me dicin MG/3ML Pharmacy: e [facility], 162.56, cm, 06/13/22 14:35:00 CDT, Height, 80.057, kg, 06/13/22 14:35:00 CDT, Weight Dextrometho 0 Yes 10 mL, PO, [facility] rphan-guaiF 06-17 Q6H, PRN Flores ege ENesin 00:00: Cough, X of 10-200 00 14 day, # Medicin MG/5ML LIQD 120 mL, 0 e Refill(s), Pharmacy: [facility], 162.56, cm, 06/13/22 14:35:00 CDT, Height, 80.057, kg, 06/13/22 14:35:00 CDT, Weight losartan 2021-0 Yes 25mg Take 25 mg Hoyt mykel (COZAAR) 25 06-17 by mouth Flores ege MG tablet 00:00: daily. of 00 Medicin e magnesium 0 Yes 400 mg = 1 Ba ylor oxide - tab, PO, [place] (MAG-OX) 00:00: Daily, X of 400 MG 00 30 day, # Medicin tablet 30 tab, 0 e Refill(s), Pharmacy: [facility], 162.56, cm, 06/13/22 14:35:00 CDT, Height, 80.057, kg, 06/13/22 14:35:00 CDT, Weight pantoprazol Yes 40mg Take 40 mg [facility] e 06-17 by mouth [employer] (PROTONIX) 00:00: daily. of 40 MG 00 Medicin tablet e Aspirin 81 No 81 mg = 1 B aylor MG tablet 06-17 10-11 tab, PO, Colle ge 00:00: 00:00 Daily, # of 00 :00 90 tab, 0 Medicin Refill(s), e Pharmacy: [facility] Pharmacy Page, 162.56, cm, 06/13/22 14:35:00 CDT, Height, 80.057, kg, 06/13/22 14:35:00 CDT, Weight aspirin No Notes: Do Memor ia 7-27 not crush l 14:00: or chew. [place] 00 (Same As: Ecotrin) aspirin No Notes: Do Memor ia 7-27 not crush l 14:00: or chew. Tomas 00 (Same As: Ecotrin) aspirin No Notes: Do Memor ia 7-27 not crush l 14:00: or chew. [place] 00 (Same As: Ecotrin) aspirin No Notes: Do Memor ia 7-27 not crush l 14:00: or chew. Tomas 00 (Same As: Ecotrin) aspirin No Notes: Do Memor ia 7-27 not crush l 14:00: or chew. [place] 00 (Same As: Ecotrin) aspirin No Notes: Do Memor ia 7-27 not crush l 14:00: or chew. [place] 00 (Same As: Ecotrin) predniSONE No 20 mg, 1 Mem oria 7-27 tab, l 13:00: Route: PO, [place] Drug form: TAB, Daily, Dosing Weight 80.057, kg, Start date: 06/15/22 8:00:00 CDT, Duration: 30 day, Stop date: 07/14/22 8:00:00 CDT, 0 predniSONE No 20 mg, 1 Mem oria 7-27 tab, l 13:00: Route: PO, [place] 00 Drug form: TAB, Daily, Dosing Weight 80.057, kg, Start date: 06/15/22 8:00:00 CDT, Duration: 30 day, Stop date: 07/14/22 8:00:00 CDT, 0 predniSONE 2022-0 No 20 mg, 1 Mem oria 7-27 tab, l 13:00: Route: PO, [place] 00 Drug form: TAB, Daily, Dosing Weight 80.057, kg, Start date: 06/15/22 8:00:00 CDT, Duration: 30 day, Stop date: 07/14/22 8:00:00 CDT, 0 predniSONE 2022-0 No 20 mg, 1 Mem oria 7-27 tab, l 13:00: Route: PO, [place] 00 Drug form: TAB, Daily, Dosing Weight 80.057, kg, Start date: 06/15/22 8:00:00 CDT, Duration: 30 day, Stop date: 07/14/22 8:00:00 CDT, 0 predniSONE 2022-0 No 20 mg, 1 Mem oria 7-27 tab, l 13:00: Route: PO, [place] 00 Drug form: TAB, Daily, Dosing Weight 80.057, kg, Start date: 06/15/22 8:00:00 CDT, Duration: 30 day, Stop date: 07/14/22 8:00:00 CDT, 0 predniSONE 2022-0 No 20 mg, 1 Mem oria 7-27 tab, l 13:00: Route: PO, [place] 00 Drug form: TAB, Daily, Dosing Weight 80.057, kg, Start date: 06/15/22 8:00:00 CDT, Duration: 30 day, Stop date: 07/14/22 8:00:00 CDT, 0 potassium 2022-0 No /= 14 Memoria chloride 20 7-27 Belgian, l mEq oral 11:31: march Tomas tablet, 00 dissolve extended each 20 release mEq tablet (KCL) in 4 oz of water. Allow about 2 minutes for the tablets to disintegra te. Stir before giving to prepare slurry and administer . Please exclude patient's with feeding tube less than 14 Belgian (Dobhoff, J-tube, etc) and pediatric and patients. potassium 2022-0 No /= 14 Memoria chloride 20 7-27 Belgian, l mEq oral 11:: march [place] tablet, 00 dissolve extended each 20 release mEq tablet (KCL) in 4 oz of water. Allow about 2 minutes for the tablets to disintegra te. Stir before giving to prepare slurry and administer . Please exclude patient's with feeding tube less than 14 Belgian (Dobhoff, J-tube, etc) and pediatric and patients. potassium 0 No /= 14 Memoria chloride 20 7-27 Belgian, l mEq oral 11:: march [place] tablet, 00 dissolve extended each 20 release mEq tablet (KCL) in 4 oz of water. Allow about 2 minutes for the tablets to disintegra te. Stir before giving to prepare slurry and administer . Please exclude patient's with feeding tube less than 14 Belgian (Dobhoff, J-tube, etc) and pediatric and patients. potassium No /= 14 Memoria chloride 20 7-27 Belgian, l mEq oral 11:: march [place] tablet, 00 dissolve extended each 20 release mEq tablet (KCL) in 4 oz of water. Allow about 2 minutes for the tablets to disintegra te. Stir before giving to prepare slurry and administer . Please exclude patient's with feeding tube less than 14 Belgian (Dobhoff, J-tube, etc) and pediatric and patients. potassium 2021-0 No /= 14 Memoria chloride 20 7-27 Belgian, l mEq oral 11:: march [place] tablet, 00 dissolve extended each 20 release mEq tablet (KCL) in 4 oz of water. Allow about 2 minutes for the tablets to disintegra te. Stir before giving to prepare slurry and administer . Please exclude patient's with feeding tube less than 14 Belgian (Dobhoff, J-tube, etc) and pediatric and patients. potassium 2021-0 No /= 14 Memoria chloride 20 7-27 Belgian, l mEq oral 11:: march [place] tablet, 00 dissolve extended each 20 release mEq tablet (KCL) in 4 oz of water. Allow about 2 minutes for the tablets to disintegra te. Stir before giving to prepare slurry and administer . Please exclude patient's with feeding tube less than 14 Belgian (Dobhoff, J-tube, etc) and pediatric and patients. metoprolol No Notes: Memor ia tartrate 7-27 (Same as: l 02:00: Lopressor) metoprolol No Notes: Memor ia tartrate 7- (Same as: l 02:00: Lopressor) metoprolol No Notes: Memor ia tartrate 7- (Same as: l 02:00: Lopressor) metoprolol No Notes: Memor ia tartrate 7- (Same as: l 02:00: Lopressor) metoprolol No Notes: Memor ia tartrate 7- (Same as: l 02:00: Lopressor) metoprolol No Notes: Memor ia tartrate 06-15 (Same as: l 02:00: Lopressor) Cepacol No Notes: Memoria Sore Throat - Same as: l 15 mg-3.6 19:24: Cepacol Alejandra nn mg mucous 00 membrane lozenge Cepacol 0 No Notes: Memoria Sore Throat - Same as: l 15 mg-3.6 19:24: Cepacol Alejandra nn mg mucous 00 membrane lozenge Cepacol 0 No Notes: Memoria Sore Throat - Same as: l 15 mg-3.6 19:24: Cepacol Alejandra nn mg mucous 00 membrane lozenge Cepacol 2021-0 No Notes: Memoria Sore Throat - Same as: l 15 mg-3.6 19:24: Cepacol Alejandra nn mg mucous 00 membrane lozenge Cepacol 0 No Notes: Memoria Sore Throat - Same as: l 15 mg-3.6 19:24: Cepacol Alejandra nn mg mucous 00 membrane lozenge Cepacol 0 No Notes: Memoria Sore Throat - Same as: l 15 mg-3.6 19:24: Cepacol Alejandra nn mg mucous 00 membrane lozenge anastrozole 0 No Notes: Sanya clementine 06-14 (Same as: l 14:00: Arimidex) [facility]: [facility] -- Refer to safe handling procedure PPE Matrix WASTE: F/P - Black; E Yellow omeprazole 2021-0 No 20 mg, 1 Mem oria 7-26 cap, l 14:00: Route: PO, Tomas 00 Drug form: DRC, Daily, Dosing Weight 63.636, kg, Start date: 06/14/22 9:00:00 CDT, Duration: 30 day, Stop date: 07/13/22 9:00:00 CDT Protonix 2021-0 No Notes: Memoria 7-26 Tablet l 14:00: should not Tomas 00 be chewed or crushed. (Same as: Protonix) anastrozole 0 No Notes: Sanya clementine 7-26 (Same as: l 14:00: Arimidex) [place] 00 [facility] 1: [facility] -- Refer to safe handling procedure PPE Matrix WASTE: F/P - Black; E Yellow omeprazole 2021-0 No 20 mg, 1 Mem oria 7-26 cap, l 14:00: Route: PO, Tomas 00 Drug form: DRC, Daily, Dosing Weight 63.636, kg, Start date: 06/14/22 9:00:00 CDT, Duration: 30 day, Stop date: 07/13/22 9:00:00 CDT Protonix 2-0 No Notes: Memoria 7-26 Tablet l 14:00: should not Tomas 00 be chewed or crushed. (Same as: Protonix) anastrozole 2021-0 No Notes: Sanya clementine 7-26 (Same as: l 14:00: Arimidex) [place] 00 [facility] 1: [facility] -- Refer to safe handling procedure PPE Matrix WASTE: F/P - Black; E Yellow omeprazole 2021-0 No 20 mg, 1 Mem oria 7-26 cap, l 14:00: Route: PO, [place]omas 00 Drug form: DRC, Daily, Dosing Weight 63.636, kg, Start date: 06/14/22 9:00:00 CDT, Duration: 30 day, Stop date: 07/13/22 9:00:00 CDT Protonix 2-0 No Notes: Memoria 7-26 Tablet l 14:00: should not [place] 00 be chewed or crushed. (Same as: Protonix) anastrozole No Notes: Sanya clementine 7-26 (Same as: l 14:00: Arimidex) [place] 00 [facility] 1: [facility] -- Refer to safe handling procedure PPE Matrix WASTE: F/P - Black; E Yellow omeprazole No 20 mg, 1 Mem oria 7-26 cap, l 14:00: Route: PO, Tomas 00 Drug form: DRC, Daily, Dosing Weight 63.636, kg, Start date: 06/14/22 9:00:00 CDT, Duration: 30 day, Stop date: 07/13/22 9:00:00 CDT Protonix 0 No Notes: Memoria 7-26 Tablet l 14:00: should not [place] 00 be chewed or crushed. (Same as: Protonix) anastrozole No Notes: Sanya clementine 7-26 (Same as: l 14:00: Arimidex) [place] 00 [facility] 1: [facility] Hazardous Drug -- Refer to safe handling procedure PPE Matrix WASTE: F/P - Black; E Yellow omeprazole 2021-0 No 20 mg, 1 Mem oria 7-26 [...] WASTE: F/P - Black; E Yellow omeprazole 2021-0 No 20 mg, 1 Mem oria 7-26 [...] n 7-26 (Same as: l 02:00: Lipitor) [place] 00 atorvastati No Notes: Sanya clementine n 7-26 (Same as: l 02:00: Lipitor) [place] 00 atorvastati No Notes: Sanya clementine n 7-26 (Same as: l 02:00: Lipitor) [place] 00 atorvastati No Notes: Sanya clementine n 7-26 (Same as: l 02:00: Lipitor) [place] 00 atorvastati No Notes: Sanya clementine n 7- (Same as: l 02:00: Lipitor) [place] 00 atorvastati No Notes: Sanya clementine n 7-26 (Same as: l 02:00: Lipitor) [place] 00 docusate No Notes: Memoria 7-25 (Same as: l 14:00: Colace) [place] 00 (Do Not Crush) Saline No Notes: Memoria Flush 0.9% 7-25 (Same as: l 14:00: BD [place] 00 Posiflush) docusate No Notes: Memoria 7-25 (Same as: l 14:00: Colace) [place] 00 (Do Not Crush) Saline No Notes: Memoria Flush 0.9% 7-25 (Same as: l 14:00: BD [place] 00 Posiflush) docusate No Notes: Memoria 7-25 (Same as: l 14:00: Colace) [place] 00 (Do Not Crush) Saline No Notes: Memoria Flush 0.9% 7-25 (Same as: l 14:00: BD [place] 00 Posiflush) docusate No Notes: Memoria 7-25 (Same as: l 14:00: Colace) [place] 00 (Do Not Crush) Saline No Notes: Memoria Flush 0.9% 7-25 (Same as: l 14:00: BD [place] Posiflush) docusate No Notes: Memoria 7-25 (Same as: l 14:00: Colace) [place] (Do Not Crush) Saline No Notes: Memoria Flush 0.9% 7-25 (Same as: l 14:00: BD [place] Posiflush) docusate No Notes: Memoria 7-25 (Same as: l 14:00: Colace) [place] (Do Not Crush) Saline No Notes: Memoria Flush 0.9% 7-25 (Same as: l 14:00: BD [place] Posiflush) anastrozole Yes 1 mg = 1 Me moria 1 mg oral 7-25 tab, PO, l tablet 13:59: Daily amLODIPine No 5 mg = 1 Mem oria 5 mg oral 7-25 tab, PO, l tablet 13:59: Daily atorvastati No 40 mg = 1 M emoria n 40 mg 7-25 tab, PO, l oral tablet 13:59: Bedtime Her hydrochloro No 12.5 mg = M emoria thiazide 7-25 1 tab, PO, l 12.5 mg 13:59: Daily [place] oral tablet 00 omeprazole No 20 mg = 1 Me moria 20 mg oral 7-25 cap, PO, l delayed 13:59: Daily [place] release capsule losartan No 100 mg = 1 Mem oria 100 mg oral 7-25 tab, PO, l tablet 13:59: Daily [place] rosuvastati Yes 5 mg = 1 Me moria n 5 mg oral 7-25 tab, PO, l tablet 13:59: Bedtime [place] anastrozole Yes 1 mg = 1 Me moria 1 mg oral 7-25 tab, PO, l tablet 13:59: Daily [place] amLODIPine No 5 mg = 1 Mem oria 5 mg oral 7-25 tab, PO, l tablet 13:59: Daily [place] atorvastati No 40 mg = 1 M emoria n 40 mg 7-25 tab, PO, l oral tablet 13:59: Bedtime Her [facility] 00 hydrochloro No 12.5 mg = M emoria thiazide 7-25 1 tab, PO, l 12.5 mg 13:59: Daily [place] oral tablet omeprazole No 20 mg = 1 Me moria 20 mg oral 7-25 cap, PO, l delayed 13:59: Daily [place] release capsule losartan No 100 mg = [...] PO, l oral tablet 13:59: Bedtime Her [facility] hydrochloro No 12.5 mg = M emoria thiazide 7-25 1 tab, PO, l 12.5 mg 13:59: Daily [place] oral tablet omeprazole No 20 mg = 1 Me moria 20 mg oral 7-25 cap, PO, l delayed 13:59: Daily release capsule losartan No 100 mg = [...] PO, l oral tablet 13:59: Bedtime Her [facility] hydrochloro No 12.5 mg = M emoria thiazide 7-25 1 tab, PO, l 12.5 mg 13:59: Daily [place] oral tablet omeprazole No 20 mg = 1 Me moria 20 mg oral 7-25 cap, PO, l delayed 13:59: Daily [place] release capsule losartan No 100 mg = [...] PO, l oral tablet 13:59: Bedtime Her [facility] hydrochloro No 12.5 mg = M emoria thiazide 7-25 1 tab, PO, l 12.5 mg 13:59: Daily [place] oral tablet 00 omeprazole No 20 mg = 1 Me moria 20 mg oral 7-25 cap, PO, l delayed 13:59: Daily [place] release capsule losartan No 100 mg = 1 Mem oria 100 mg oral 7-25 tab, PO, l tablet 13:59: Daily rosuvastati Yes 5 mg = 1 Me moria n 5 mg oral 7-25 tab, PO, l tablet 13:59: Bedtime anastrozole Yes 1 mg = 1 Me moria 1 mg oral 7-25 tab, PO, l tablet 13:59: Daily amLODIPine 2022-0 No 5 mg = 1 Mem oria 5 mg oral 7-25 tab, PO, l tablet 13:59: Daily [place] atorvastati No 40 mg = 1 Patricia emoria n 40 mg 7-25 tab, PO, l oral tablet 13:59: Bedtime Her viera hydrochloro No 12.5 mg = M emoria thiazide 7-25 1 tab, PO, l 12.5 mg 13:59: Daily [place] oral tablet 00 omeprazole No 20 mg = 1 Me moria 20 mg oral 7-25 cap, PO, l delayed 13:59: Daily [place] release 00 capsule losartan No 100 mg = 1 Mem oria 100 mg oral 7-25 tab, PO, l tablet 13:59: Daily [place] rosuvastati Yes 5 mg = 1 Me moria n 5 mg oral 7-25 tab, PO, l tablet 13:59: Bedtime [place] 00 furosemide No Notes: Memor ia 7-25 (Same as: l 13:00: Lasix) [place] 00 MEDICATION WASTE Product Size: 40 mg Product Wasted: ___ mg furosemide No Notes: Memor ia 7-25 (Same as: l 13:00: Lasix) [place] 00 MEDICATION WASTE Product Size: 40 mg Product Wasted: ___ mg furosemide No Notes: Memor ia 7-25 (Same as: l 13:00: Lasix) [place] 00 MEDICATION WASTE Product Size: 40 mg Product Wasted: ___ mg furosemide No Notes: Memor ia 7-25 (Same as: l 13:00: Lasix) [place] 00 MEDICATION WASTE Product Size: 40 mg Product Wasted: ___ mg furosemide No Notes: Memor ia 7-25 (Same as: l 13:00: Lasix) [place] 00 MEDICATION WASTE Product Size: 40 mg Product Wasted: ___ mg furosemide No Notes: Memor ia 7-25 (Same as: l 13:00: Lasix) [place] 00 MEDICATION WASTE Product Size: [...] as: l 2.5-0.5 mg 12:00: Duoneb) Herm nupru inhalation 00 solution albuterol-i No Notes: Sanya clementine pratropium 7-25 (Same as: l 2.5-0.5 mg 12:00: Duoneb) Herm nupur inhalation 00 solution levofloxaci No Notes: Do M emoria n 06-13 not give l 09:00: w/antacids [place] 00 , dairy pdt & minerals Take 1 hr before or 2 hr after dairy pdt (Same as:Levaqui n) levofloxaci No Notes: Do M emoria n 06-13 not give l 09:00: w/antacids [place] 00 , dairy pdt & minerals Take 1 hr before or 2 hr after dairy pdt (Same as:Levaqui n) levofloxaci No Notes: Do M emoria n 06-13 not give l 09:00: w/antacids [place] 00 , dairy pdt & minerals Take 1 hr before or 2 hr after dairy pdt (Same as:Levaqui n) levofloxaci No Notes: Do M emoria n 06-13 not give l 09:00: w/antacids [place] 00 [...] levofloxaci No Notes: Do M emoria n 7- not give l 09:00: w/antacids [place] 00 [...] ia 7-25 Take with l 08:41: food. [place] 00 predniSONE 2021-0 No Notes: Memor ia 7-25 Take with l 08:41: food. [place] predniSONE 2021-0 No Notes: Memor ia 7-25 Take with l 08:41: food. [place] 00 D10W 2021-0 No 250 mL, Memoria (bolus) IV 7-25 999 ml/hr, l 07:01: Route: IV, Drug Form: INJ, Dosing Weight 63.636, kg, PRN, PRN Blood Glucose Results, Start date: 06/13/22 2:01:00 CDT, Duration: 30 day, Stop date: 07/13/22 2:00:00 CDT, Infuse over: 0.3 hr, 0 D10W 2021-0 No 250 mL, Memoria (bolus) IV 7-25 999 ml/hr, l 07:01: Route: IV, Drug Form: INJ, Dosing Weight 63.636, kg, PRN, PRN Blood Glucose Results, Start date: 06/13/22 2:01:00 CDT, Duration: 30 day, Stop date: 07/13/22 2:00:00 CDT, Infuse over: 0.3 hr, 0 D10W 2021-0 No 250 mL, Memoria (bolus) IV 7-25 999 ml/hr, l 07:01: Route: IV, Drug Form: INJ, Dosing Weight 63.636, kg, PRN, PRN Blood Glucose Results, Start date: 06/13/22 2:01:00 CDT, Duration: 30 day, Stop date: 07/13/22 2:00:00 CDT, Infuse over: 0.3 hr, 0 D10W 2021-0 No 250 mL, Memoria (bolus) IV 7-25 999 ml/hr, l 07:01: Route: IV, Drug Form: INJ, Dosing Weight 63.636, kg, PRN, PRN Blood Glucose Results, Start date: 06/13/22 2:01:00 CDT, Duration: 30 day, Stop date: 07/13/22 2:00:00 CDT, Infuse over: 0.3 hr, 0 D10W 2021-0 No 250 mL, Memoria (bolus) IV 7-25 999 ml/hr, l 07:01: Route: IV, [place] 00 Drug Form: INJ, Dosing Weight 63.636, kg, PRN, PRN Blood Glucose Results, Start date: 06/13/22 2:01:00 CDT, Duration: 30 day, Stop date: 07/13/22 2:00:00 CDT, Infuse over: 0.3 hr, 0 D10W No 250 mL, Memoria (bolus) IV 7-25 999 ml/hr, l 07:01: Route: IV, [place] 00 Drug Form: INJ, Dosing Weight 63.636, [...] Memoria 7-25 (Same as: l 07:00: Lovenox) [place] Lovenox No Notes: Memoria 7-25 (Same as: l 07:00: Lovenox) [place] 00 Lovenox No Notes: Memoria 7-25 (Same as: l 07:00: Lovenox) [place] Saline No Notes: Memoria Flush 0.9% 7-25 (Same as: l 06:53: BD [place] 00 Posiflush) Saline No Notes: Memoria Flush 0.9% 7-25 (Same as: l 06:53: BD [place] 00 Posiflush) Saline No Notes: Memoria Flush 0.9% 7-25 (Same as: l 06:53: BD [place] 00 Posiflush) Saline No Notes: Memoria Flush 0.9% 7-25 (Same as: l 06:53: BD [place] 00 Posiflush) Saline No Notes: Memoria Flush 0.9% 7-25 (Same as: l 06:53: BD [place] 00 Posiflush) Saline No Notes: Memoria Flush 0.9% [...] clementine 7-25 (Same as: l 06:51: Apresoline [place] 00 ) Push over 5 minutes Tessalon No Notes: Memoria Perles 7-25 (Same As: l 06:51: Tessalon [place] 00 Perles) "Do Not Crush" potassium No /= 14 Memoria chloride 7-25 Belgian, l 06:51: may [place] 00 dissolve each 20 mEq tablet in 4 oz of water. Allow about 2 minutes for the tablets to disintegra te. Stir before giving to prepare slurry and administer . Please exclude patient's with feeding tube less than 14 Belgian (Dobhoff, J-tube, etc) and pediatric and patients. potassium No Notes: Memori a phosphate-s 7-25 (Same as: l odium 06:51: Phos-NaK) [place] [...] WASTE: F/P l 06:51: - Sink; E [place] 00 - Municipal Trash Bin magnesium No Notes: Memori a oxide 7-25 (Same as: l 06:51: Mag-Ox [place] 00 400) Magnesium oxide [id number] g elemental magnesium Dose=____m g magnesium oxide [...] clementine 06-13 (Same as: l 06:51: Apresoline [place] 00 ) Push over 5 minutes Tessalon No Notes: Memoria Perles 7-25 (Same As: l 06:51: Tessalon [place] Perles) "Do Not Crush" potassium No /= 14 Memoria chloride 7-25 Belgian, l 06:51: march [place] dissolve each 20 mEq tablet in 4 oz of water. Allow about 2 minutes for the tablets to disintegra te. Stir before giving to prepare slurry and administer . Please exclude patient's with feeding tube less than 14 Belgian (Dobhoff, J-tube, etc) and pediatric and patients. potassium No Notes: Memori a phosphate-s 7-25 (Same as: l odium 06:51: Phos-NaK) [place] phosphate 00 Each 1.5 250 mg-280 gm [...] Bin magnesium No Notes: Memori a oxide -25 (Same as: l 06:51: Mag-Ox [place] 00 400) Magnesium oxide 084ye=908r g elemental magnesium Dose=____m g magnesium oxide [...] Robitussin DM) hydrALAZINE No Notes: Sanya clementine -25 (Same as: l 06:51: Apresoline ) Push over 5 minutes Tessalon No Notes: Memoria Perles 7-25 (Same As: l 06:51: Tessalon [place] 00 Perles) "Do Not Crush" potassium No /= 14 Memoria chloride 7-25 Belgian, l 06:51: march [place] 00 dissolve each 20 mEq tablet in 4 oz of water. Allow about 2 minutes for the tablets to disintegra te. Stir before giving to prepare slurry and administer . Please exclude patient's with feeding tube less than 14 Belgian (Dobhoff, J-tube, etc) and pediatric and patients. potassium No Notes: Memori a phosphate-s 7-25 (Same as: l odium 06:51: Phos-NaK) [place] phosphate 00 Each 1.5 250 mg-280 gm pkt has mg-160 mg 250mg oral powder phosphorou for s. Mix reconstitut w/2.5oz ion water and stir. potassium No Notes: Memori a phosphate + 7-25 (Same as: l Sodium 06:51: K [place] Chloride 00 Phosphate. 0.9% IV 250 ) [...] Bin magnesium No Notes: Memori a oxide -25 (Same as: l 06:51: Mag-Ox [place] 00 400) Magnesium oxide 691fe=629p g elemental magnesium Dose=____m g magnesium oxide (___mg elemental magnesium) calcium No Notes: Memoria gluconate -25 WASTE: F/P l 06:51: - Sink; E [place] - Municipal Trash Bin calcium No Notes: [...] Robitussin DM) hydrALAZINE No Notes: Sanya clementine 25 (Same as: l 06:51: Apresoline ) Push over 5 minutes Tessalon No Notes: Memoria Perles 06-13 (Same As: l 06:51: Tessalon [place] 00 Perles) "Do Not Crush" potassium No /= 14 Memoria chloride 7-25 Belgian, l 06:51: march [place] 00 dissolve each 20 mEq tablet in 4 oz of water. Allow about 2 minutes for the tablets to disintegra te. Stir before giving to prepare slurry and administer . Please exclude patient's with feeding tube less than 14 Belgian (Dobhoff, J-tube, etc) and pediatric and patients. potassium No Notes: Memori a phosphate-s 7-25 (Same as: l odium 06:51: Phos-NaK) [place] phosphate 00 Each 1.5 250 mg-280 gm [...] 06:51: Mag-Ox [place] 00 400) Magnesium oxide 728db=227r g elemental magnesium Dose=____m g magnesium oxide (___mg elemental magnesium) calcium No Notes: Memoria gluconate 7-25 WASTE: F/P l 06:51: - Sink; E [place] - Municipal Trash Bin calcium No Notes: [...] as: Tylenol) dextrometho No Notes: Sanya clementine eliazarhan-guaiF 06-13 (dextromet l ENesin 10 06:51: horphan-gu [...] potassium No /= 14 Memoria chloride 7-25 Belgian, l 06:51: may [place] 00 dissolve each 20 mEq tablet in 4 oz of water. Allow about 2 minutes for the tablets to disintegra te. Stir before giving to prepare slurry and administer . Please exclude patient's with feeding tube less than 14 Belgian (Dobhoff, J-tube, etc) and pediatric and patients. potassium No Notes: Memori a phosphate-s 7-25 (Same as: l odium 06:51: Phos-NaK) [place] phosphate 00 Each 1.5 250 mg-280 gm pkt has mg-160 mg 250mg oral powder phosphorou for s. Mix reconstitut w/2.5oz ion water and stir. potassium No Notes: Memori a phosphate + 7-25 (Same as: l Sodium 06:51: K [place] Chloride 00 Phosphate. 0.9% IV 250 ) [...] oxide 7-25 (Same as: l 06:51: Mag-Ox [place] 00 400) Magnesium oxide 108iz=953s g elemental magnesium Dose=____m g magnesium oxide (___mg elemental magnesium) calcium No Notes: Memoria gluconate 7-25 WASTE: F/P l 06:51: - Sink; E [place] 00 - Municipal Trash Bin calcium No [...] CDT, 0 ondansetron No Notes: Sanya clementine - (Same as: l 06:51: Zofran) MEDICATION WASTE Product Size: 4 mg Product Wasted: ___ mg melatonin No Notes: Memori a - (Same as: l 06:51: Melatonin) acetaminoph No Notes: Do M emoria en 06-13 not exceed l 06:51: 4 gm/day. (Same as: Tylenol) dextrometho No Notes: Sanya clementine rphan-guaiF -25 (dextromet l ENesin 10 06:51: horphan-gu He rmann mg-200 mg/5 00 aifenesin mL oral 10-100mg/5 liquid ml 10 ml oral SOLN ud) (Same as: Robitussin DM) hydrALAZINE No Notes: Sanya clementine -25 (Same as: l 06:51: Apresoline ) Push over 5 minutes Tessalon No Notes: Memoria Perles -25 (Same As: l 06:51: [place] Perles) "Do Not Crush" potassium No /= 14 Memoria chloride 7-25 Belgian, l 06:51: [place] dissolve each 20 mEq tablet in 4 oz of water. Allow about 2 minutes for the tablets to disintegra te. Stir before giving to prepare slurry and administer . Please exclude patient's with feeding tube less than 14 Belgian (Dobhoff, J-tube, etc) and pediatric and patients. potassium No Notes: Memori a phosphate-s 7-25 (Same as: l odium 06:51: Phos-NaK) [place] [...] oxide 7-25 (Same as: l 06:51: Mag-Ox [place] 00 400) Magnesium oxide 727fi=971z g elemental magnesium Dose=____m g magnesium oxide (___mg elemental magnesium) calcium No Notes: Memoria gluconate 7-25 WASTE: F/P l 06:51: - Sink; E [place] 00 - Municipal Trash Bin calcium No Notes: Memoria gluconate + 7-25 WASTE: F/P l Sodium 06:51: - Sink; E [place] n Chloride 00 - 0.9% IV 120 Municipal mL Trash Bin Lasix 2022-0 No Notes: Memoria 7-25 (Same as: l 02:15: Lasix) [place] 00 MEDICATION WASTE Product Size: 40 mg Product Wasted: ___ mg Lasix 2021-0 No Notes: Memoria 7-25 (Same as: l 02:15: Lasix) [place] 00 MEDICATION WASTE Product Size: 40 mg Product Wasted: ___ mg Lasix 2021-0 No Notes: Memoria 7-25 (Same as: l 02:15: Lasix) [place] 00 MEDICATION WASTE Product Size: 40 mg Product Wasted: ___ mg Lasix 2021-0 No Notes: Memoria 7-25 (Same as: l 02:15: Lasix) [place] 00 MEDICATION WASTE Product Size: 40 mg Product Wasted: ___ mg Lasix 2021-0 No Notes: Memoria 7-25 (Same as: l 02:15: Lasix) [place] 00 MEDICATION WASTE Product Size: 40 mg Product Wasted: ___ mg Lasix 2021-0 No Notes: Memoria 7-25 (Same as: l 02:15: Lasix) [place] 00 MEDICATION WASTE Product Size: 40 mg Product Wasted: ___ mg dexamethaso No 10 mg, 2.5 Memoria ne 7-25 mL, Route: l 01:03: IVP, Drug [place] form: INJ, ONCE, Dosing Weight 63.636, kg, Priority: STAT, Start date: 06/12/22 20:03:00 CDT, Stop date: 06/12/22 20:03:00 CDT, 0 albuterol-i No Notes: Sanya clementine pratropium -25 (Same as: l 2.5-0.5 mg 01:03: Duoneb) Herm nupur inhalation 00 solution dexamethaso No 10 mg, 2.5 Memoria ne 7-25 mL, Route: l 01:03: IVP, Drug [place] form: INJ, ONCE, Dosing Weight 63.636, kg, Priority: STAT, Start date: 06/12/22 20:03:00 CDT, Stop date: 06/12/22 20:03:00 CDT, 0 albuterol-i 2-0 No Notes: Sanya clementine pratropium 7-25 (Same as: l 2.5-0.5 mg 01:03: Duoneb) Herm nupur inhalation 00 solution dexamethaso 2-0 No 10 mg, 2.5 Memoria ne 7-25 mL, Route: l 01:03: IVP, Drug [place] 00 form: INJ, ONCE, Dosing Weight 63.636, kg, Priority: STAT, Start date: 06/12/22 20:03:00 CDT, Stop date: 06/12/22 20:03:00 CDT, 0 albuterol-i 2021-0 No Notes: Sanya clementine pratropium 7-25 (Same as: l 2.5-0.5 mg 01:03: Duoneb) Herm nupur inhalation 00 solution dexamethaso 2-0 No 10 mg, 2.5 Memoria ne 7-25 mL, Route: l 01:03: IVP, Drug [place] 00 form: INJ, ONCE, Dosing Weight 63.636, kg, Priority: STAT, Start date: 06/12/22 20:03:00 CDT, Stop date: 06/12/22 20:03:00 CDT, 0 albuterol-i 2021-0 No Notes: Sanya clementine pratropium 7-25 (Same as: l 2.5-0.5 mg 01:03: Duoneb) Herm nupur inhalation 00 solution dexamethaso 2-0 No 10 mg, 2.5 Memoria ne 7-25 mL, Route: l 01:03: IVP, Drug [place] 00 form: INJ, ONCE, Dosing Weight 63.636, kg, Priority: STAT, Start date: 06/12/22 20:03:00 CDT, Stop date: 06/12/22 20:03:00 CDT, 0 albuterol-i 2021-0 No Notes: Sanya clementine pratropium 7-25 (Same as: l 2.5-0.5 mg 01:03: Duoneb) Herm nupur inhalation 00 solution dexamethaso 2022-0 No 10 mg, 2.5 Memoria [...] 6-30 [facility] 00:00: - [facility] 00 [facility] Tramadol Tramadol No 1{table Tramadol HCl 50 MG HCl 50 MG 6-30 t} HCl 50 MG 00:00: 00 Tramadol Tramadol No 1{table Tramadol HCl 50 MG HCl 50 MG 6-30 t} HCl 50 MG 00:00: 00 Tramadol Tramadol No 1{table Tramadol HCl 50 MG HCl 50 MG 6-30 t} HCl 50 MG 00:00: 00 Tramadol Tramadol No 1{table Tramadol HCl 50 MG HCl 50 MG 6-30 t} HCl 50 MG 00:00: 00 anastrozole anastrozole No 1 Q1D anastrozol [place] 1 mg tablet 1 mg tablet e 1 mg Family Take 1 Take 1 tablet Practic tablet tablet Take 1 e every day every day tablet by oral by oral every day route. route. by oral route. hydrochloro hydrochloro No 1 Q1D hydrochlor [facility] thiazide thiazide othiazide fredrick 12.5 mg 12.5 mg 12.5 mg Practi c tablet Take tablet Take tablet e 1 tablet 1 tablet Take 1 every day every day tablet by oral by oral every day route. route. by oral route. omeprazole omeprazole No 1 Q1D omeprazole [facility] 20 mg 20 mg 20 mg Family delayed delayed delayed Practi c release,dis release,dis release,di e integrating integrating sintegrati tablet Take tablet Take ng tablet 1 tablet 1 tablet Take 1 every day every day tablet by oral by oral every day route route by oral before before route meals. meals. before meals. acyclovir 5 acyclovir 5 No acyclovir Devoted [...] BACK BACK FOR BACK SPASMS. SPASMS. SPASMS. Hydrochloro Hydrochloro Yes Jose Alberto not Common thiazide thiazide Ring defined Spir it [facility] Anastrozole Anastrozole Yes Jose Alberto not Common Ring defined [facility] Omeprazole Omeprazole Yes Jose Alberto not Common Ring defined [facility] Losartan Losartan Yes Jose Alberto not Comm on Potassium Potassium Ring defined Sp amber [facility] Losartan Losartan No Losartan Potassium [...] Losartan Losartan No Losartan Potassium Potassium Potassium ibuprofen ibuprofen No ibuprofen Devoted 800 mg [...] FOR PAIN. FOR PAIN. NEEDED FOR PAIN. Halobetasol Halobetasol No Halobetaso Propionate Propionate l [...] rilocaine rilocaine Prilocaine Naproxen Naproxen No Naproxen losartan losartan No losartan Dev oted 100 [...] DAY. A DAY. THREE TIMES A DAY. Immunizations Ordered Immunization Filled Immunization Date Status Commen ts Source Name Name Hyalgan 20 mg Hyalgan 20 mg 2020-10-06 Completed [facility] 11:17[facility]00 [facility] Hyalgan 20 mg Hyalgan 20 mg 2020-09-29 Completed [facility] 11:59:00 [facility] Hyalgan 20 mg Hyalgan 20 mg 2020-09-29 Completed [facility] 11:59:00 [facility] Hyalgan 20 mg Hyalgan 20 mg 2020-09-22 Completed [facility] 09:44:00 [facility] Hyalgan 20 mg Hyalgan 20 mg 2020-09-22 Completed [facility] 09:44:00 [facility] Hyalgan 20 mg Hyalgan 20 mg 2020-09-22 Completed [facility] 09:44:00 [facility] Bupivicaine [place] Bupivicaine [place] 2020-05-19 Completed [facility] 09:05:00 [facility] Bupivicaine [place] Bupivicaine [place] 2020-05-19 Completed [facility] 09:05: [facility] Bupivicaine [place] Bupivicaine [place] 2020-05-19 Completed [facility] 09:05: [facility] Bupivicaine [place] Bupivicaine [place] 2020-05-19 Completed [facility] 09:05: [facility] Kenalog Kenalog 2020-05-19 Completed [facility] (Triamcinolone) (Triamcinolone) 09:04:00 - [facility] Com[facility] (Triamcinolone) (Triamcinolone) 09:04:00 - [facility] 2020[facility]-19 Com[facility] (Triamcinolone) (Triamcinolone) 09:04:00 - [facility] 2020-05-19 Completed [facility] (Triamcinolone) (Triamcinolone) 09:04:00 - [facility] 2020-02-24 Completed [facility] (Triamcinolone) (Triamcinolone) 15:16:00 - [facility] 2020-02-24 Completed [facility] (Triamcinolone) (Triamcinolone) 15:16:00 - [facility] 2020-02-24 Completed [facility] (Triamcinolone) (Triamcinolone) 15:16:00 - [facility] 2020-02-24 Completed [facility] (Triamcinolone) (Triamcinolone) 15:16:00 - [facility] Bupivicaine [place] Bupivicaine [place] 2020-02-24 Completed [facility] 15:15:00 - [facility] Bupivicaine [place] Bupivicaine [place] 2020-02-24 Completed [facility] 15:15:00 - [facility] Bupivicaine [place] Bupivicaine [place] 2020-02-24 Completed [facility] 15:15:00 - [facility] Bupivicaine [place] Bupivicaine [place] 2020-02-24 Completed [facility] 15:15:00 [facility] Depo Medrol (40mg) Depo Medrol (40mg) 2019-06-06 Completed [facility] 09:38:00 [facility] Bupivicaine [place] Bupivicaine [place] 2019-06-06 Completed [facility] 09:38: [facility] Depo Medrol (40mg) Depo Medrol (40mg) 2019-06-06 Completed [facility] 09:38:00 - [facility] Bupivicaine [place] Bupivicaine [place] 2019-06-06 Completed [facility] 09:38:00 - [facility] Depo Medrol (40mg) Depo Medrol (40mg) 2019-06-06 Completed [facility] 09:38:00 - [facility] Bupivicaine [place] Bupivicaine [place] 2019-06-06 Completed [facility] 09:38:00 - [facility] Depo Medrol (40mg) Depo Medrol (40mg) 2019-06-06 Completed [facility] 09:38:00 - [facility] Bupivicaine [place] Bupivicaine [place] 2019-06-06 Completed [facility] 09:38:00 - [facility] Vital Signs Vital Name Observation Time Observation Value Comments Source WEIGHT 2022-09-28 08:42:00 66.282 kg WEIGHT 2022-09-27 03:59:00 66.089 kg WEIGHT 2022-09-26 04:41:00 70.761 kg WEIGHT 2022-09-23 05:25:00 75.342 kg HEIGHT 2022-09-22 09:00:00 167.6 cm WEIGHT 2022-09-22 09:00:00 69.174 kg HEIGHT 2022-09-21 17:00:00 167.6 cm WEIGHT 2022-09-21 17:00:00 70 kg WEIGHT 2022-09-28 08:42:00 66.282 kg WEIGHT 2022-09-27 03:59:00 66.089 kg WEIGHT 2022-09-26 04:41:00 70.761 kg WEIGHT 2022-09-23 05:25:00 75.342 kg HEIGHT 2022-09-22 09:00:00 167.6 cm WEIGHT 2022-09-22 09:00:00 69.174 kg HEIGHT 2022-09-21 17:00:00 167.6 cm WEIGHT 2022-09-21 17:00:00 70 kg WEIGHT 2022-09-28 08:42:00 66.282 kg WEIGHT 2022-09-27 03:59:00 66.089 kg WEIGHT 2022-09-26 04:41:00 70.761 kg WEIGHT 2022-09-23 05:25:00 75.342 kg HEIGHT 2022-09-22 09:00:00 167.6 cm WEIGHT 2022-09-22 09:00:00 69.174 kg HEIGHT 2022-09-21 17:00:00 167.6 cm WEIGHT 2022-09-21 17:00:00 70 kg Systolic blood 2022-08-30 13:41:00 119 mm[Hg] [facility] pressure Medicine Diastolic blood 2022-08-30 13:41:00 56 mm[Hg] [facility] pressure Medicine Heart rate 2022-08-30 13:38:00 109 /min [facility] ollege of [facility] Respiratory rate 2022-08-30 13:38:00 16 /min [facility] Body height 2022-08-30 13:38:00 165.1 cm [facility] ollege of [facility] Body weight 2022-08-30 13:38:00 71.668 kg pt states [facility] ol[facility] of [facility] BMI 2022-08-30 13:38:00 26.29 [facility] Oxygen saturation in 2022-08-30 13:38:00 98 /min [facility] Arterial blood by [facility] Pulse oximetry Systolic blood 2022-08-24 13:00:00 99 mm[Hg] [facility] pressure Medicine Diastolic blood 2022-08-24 13:00:00 55 mm[Hg] [facility] pressure Medicine Heart rate 2022-08-24 13:00:00 91 /min [facility] ollege of [facility] Body temperature 2022-08-24 12:30:00 36.67 Lovely [facility] Body height 2022-08-24 12:30:00 160 cm [facility] ollege of [facility] Body weight 2022-08-24 12:30:00 71.215 kg [facility] ol[facility] of [facility] BMI 2022-08-24 12:30:00 27.81 kg/m2 [facility] ollege of Medicine HEIGHT 2022-08-18 10:40:00 160 cm WEIGHT 2022-08-18 10:40:00 68.04 kg HEIGHT 2022-08-18 10:40:00 160 cm WEIGHT 2022-08-18 10:40:00 68.04 kg HEIGHT 2022-08-18 10:40:00 160 cm WEIGHT 2022-08-18 10:40:00 68.04 kg height 2020-10-06 15:15:00 61.5 [in_i] [facility] weight 2020-10-06 15:15:00 157 [lb_av] [facility] temperature 2020-10-06 15:15:00 97.1 [degF] [facility] bmi 2020-10-06 15:15:00 29.18 kg/m2 [facility] blood pressure 2020-10-06 15:15:00 142 mm[Hg] [facility] - systolic [facility] blood pressure 2020-10-06 15:15:00 84 mm[Hg] [facility] diastolic [facility] height 2020-09-29 11:15:00 61.5 [in_i] [facility] weight 2020-09-29 11:15:00 157 [lb_av] [facility] temperature 2020-09-29 11:15:00 97.3 [degF] [facility] bmi 2020-09-29 11:15:00 29.18 kg/m2 [facility] blood pressure 2020-09-29 11:15:00 144 mm[Hg] [facility] - systolic [facility] blood pressure 2020-09-29 11:15:00 84 mm[Hg] [facility] - diastolic [facility] height 2020-09-22 09:30:00 61.5 [in_i] [facility] weight 2020-09-22 09:30:00 157 [lb_av] [facility] temperature 2020-09-22 09:30:00 97.1 [degF] [facility] bmi 2020-09-22 09:30:00 29.18 kg/m2 [facility] blood pressure 2020-09-22 09:30:00 160 mm[Hg] [facility] - systolic [facility] blood pressure 2020-09-22 09:30:00 84 mm[Hg] Common [facility] - diastolic [facility] height 2020-09-10 09:30:00 61.5 [in_i] [facility] weight 2020-09-10 09:30:00 157 [lb_av] [facility] bmi 2020-09-10 09:30:00 29.18 kg/m2 [facility] S pirit [facility] blood pressure 2020-09-10 09:30:00 134 mm[Hg] [facility] - systolic [facility] blood pressure 2020-09-10 09:30:00 72 mm[Hg] Common [facility] - diastolic [facility] Systolic blood 2022-09-28 15:25:00 100 mm[Hg] [facility] Diastolic blood 2022-09-28 15:25:00 59 mm[Hg] [facility] Heart rate 2022-09-28 15:25:00 96 /min [facility] Body temperature 2022-09-28 15:25:00 35.61 Lovely [facility] Respiratory rate 2022-09-28 15:25:00 18 /min [facility] Oxygen saturation in 2022-09-28 15:25:00 97 /min [facility] Arterial blood by Medical Ce nter Pulse oximetry Body weight 2022-09-28 08:42:00 66.282 kg [facility] BMI 2022-09-28 08:42:00 23.60 kg/m2 [facility] Body height 2022-09-22 09:00:00 167.6 cm [facility] Systolic blood 2022-08-18 12:18:00 116 mm[Hg] [facility] Diastolic blood 2022-08-18 12:18:00 53 mm[Hg] [facility] Heart rate 2022-08-18 12:18:00 91 /min [facility] Respiratory rate 2022-08-18 12:18:00 18 /min [facility] Oxygen saturation in 2022-08-18 12:18:00 100 /min [facility] Arterial blood by [facility] Pulse oximetry Body temperature 2022-08-18 10:40:00 36.72 Lovely [facility] Body height 2022-08-18 10:40:00 160 cm [facility] Body weight 2022-08-18 10:40:00 68.04 kg [facility] BMI 2022-08-18 10:40:00 26.57 kg/m2 [facility] Heart Rate 2022-06-17 16:38:41 [facility] [place] Systolic (mm Hg) 2022-06-17 16:38:36 Sanya [facility] Diastolic (mm Hg) 2022-06-17 16:38:36 [facility] Heart Rate 2022-06-17 16:38:36 [facility] Heart Rate 2022-06-17 13:21:37 [facility] Systolic (mm Hg) 2022-06-17 13:21:31 Sanya [facility] Diastolic (mm Hg) 2022-06-17 13:21:31 [facility] [place] Temperature Oral (F) 2022-06-17 13:19:30 98.3 F [facility] [place] Respitory Rate 2022-06-17 12:55:00 [facility] Temperature Oral (F) 2022-06-17 09:42:49 97.5 F [facility] [place] Systolic (mm Hg) 2022-06-17 09:42:39 [facility]anya [facility] [place] Diastolic (mm Hg) 2022-06-17 09:42:39 [facility] [place] Temperature Oral (F) 2022-06-17 05:57:22 97.5 F [facility] Respitory Rate 2022-06-17 01:23:00 [facility] [place] Respitory Rate 2022-06-16 12:48:00 [facility] [place] Height 2022-06-13 19:35:00 162.56 cm [facility] Weight 2022-06-13 19:35:00 [facility] BMI Calculated 2022-06-13 19:35:00 [facility] [place] Respitory Rate 2022-06-13 11:35:00 [facility] [place] Respitory Rate 2022-06-13 11:00:00 [facility] Systolic (mm Hg) 2022-06-13 11:00:00 [facility]anya [facility] [place] Diastolic (mm Hg) 2022-06-13 11:00:00 [facility] [place] Respitory Rate 2022-06-13 10:00:00 [facility] [place] Systolic (mm Hg) 2022-06-13 10:00:00 [facility]anya [facility] [place] Diastolic (mm Hg) 2022-06-13 10:00:00 [facility] Systolic (mm Hg) 2022-06-13 09:14:00 [facility]anya [facility] Diastolic (mm Hg) 2022-06-13 09:14:00 [facility] Temperature Oral (F) 2022-06-13 01:05:00 98.1 F [facility] Height 2022-06-13 00:20:00 [facility] 2022-06-13 00:20:00 [facility] Weight 2022-06-13 00:20:00 [facility] 2022-06-13 00:20:00 [facility] Temperature Oral (F) 2022-06-13 00:20:00 98 F [facility] Procedures Procedure Date / Time Performing Clinician Source Performed ECG 12-LEAD 2022-09-28 06:56:56 Curtis Douglas [facility] ECG 12-LEAD 2022-09-28 06:56:56 Unknown, Hl7 Doctor [facility] BASIC METABOLIC PANEL 2022-09-28 03:29:00 Reanna [facility] CBC W/PLT COUNT & AUTO 2022-09-28 03:29:00 Minal Forte [facility] MAGNESIUM 2022-09-28 03:29:00 Reanna [facility] CBC W/PLT COUNT & AUTO 2022-09-28 03:29:00 Reanna [facility] XR CHEST 1 VIEW PORTABLE / 2022-09-27 19:44:00 Babita Matos [facility] ECG 12-LEAD 2022-09-27 17:29:42 Babita Matos [facility] ECG 12-LEAD 2022-09-27 17:29:42 Unknown, Hl7 Doctor [facility] INSERTION, ELECTRODE LEAD, 2022-09-27 13:34:00 Nitin Mane [facility] CARDIAC PACEMAKER [facility] ECG 12-LEAD 2022-09-27 06:12:00 Deshotels, Curtis Donato [facility] ECG 12-LEAD 2022-09-27 06:12:00 Unknown, Hl7 [facility] CBC W/PLT COUNT & AUTO 2022-09-27 04:09:00 Reanna [facility] BASIC METABOLIC PANEL 2022-09-27 04:09:00 Reanna [facility] MAGNESIUM 2022-09-27 04:09:00 Reanna [facility] CBC W/PLT COUNT & AUTO 2022-09-27 04:09:00 Reanna [facility] BASIC METABOLIC PANEL 2022-09-26 08:15:00 Ava Welsh [facility] ECG 12-LEAD 2022-09-26 04:52:37 Deshotels, Curtis Donato [facility] SARS-COV2/RT-PCR ([facility] & 2022-09-26 01:29:00 Brii Carey [facility] REF LABS) [facility] ECG 12-LEAD 2022-09-25 05:26:02 Deshotebeatrice, Curtis Donato [facility] BASIC METABOLIC PANEL 2022-09-24 14:29:00 Brii Carey [facility] ECG 12-LEAD 2022-09-24 13:45:16 Deshotels, Curtis Donato [facility] ECG 12-LEAD 2022-09-24 13:45:16 Unknown, Hl7 [facility] BASIC METABOLIC PANEL 2022-09-23 07:31:00 Brii Carey [facility] MAGNESIUM 2022-09-23 07:31:[address] [facility] CBC W/PLT COUNT & AUTO 2022-09-23 07:31:00 Brii Carey [facility] DIFFERENTIAL [facility] CBC W/PLT COUNT & AUTO 2022-09-23 07:31:00 Cherry, Brii Maher [facility] DIFFERENTIAL [facility] ECG 12-LEAD 2022-09-23 07:19:04 Nikolay Cruz [facility] BASIC METABOLIC PANEL 2022-09-22 05:39:00 Sergey Prather [facility] CBC W/PLT COUNT & AUTO 2022-09-22 05:39:00 Sergey Prather [facility] DIFFERENTIAL [facility] MAGNESIUM 2022-09-22 05:39:00 Crescencio Sergey [facility] CBC W/PLT COUNT & AUTO 2022-09-22 05:39:00 Crescencio Sergey [facility] DIFFERENTIAL [facility] PREPARE RBC 2022-09-21 23:54:00 Jimy Pepper [facility] CYTOLOGY 2022-09-21 13:31:00 [facility], [facility] BODY FLUID CULTURE + GRAM 2022-09-21 13:31:00 [facility], Or CH I [facility] BODY FLUID CELL COUNT WITH 2022-09-21 13:30:00 [facility] Or Gunnar [facility] LACTATE DEHYDROGENASE 2022-09-21 13:29:00 [facility] ([facility] PROTEIN, BODY FLUID 2022-09-21 13:29:00 [facility], [facility] XR CHEST 1 VIEW PORTABLE / 2022-09-21 12:45:00 Yvette Welsh [facility] ECG 12-LEAD 2022-09-21 12:42:26 Dangelo Meredith [facility] ECG 12-LEAD 2022-09-21 12:42:26 Unknown, Hl7 Doctor [facility] ECG 12-LEAD 2022-09-21 12:41:57 Unknown, Hl7 Doctor [facility] BLOOD GAS, ARTERIAL 2022-09-21 11:33:00 Brii Carey [facility] HIGH SENSITIVITY TROPONIN I 2022-09-21 11:30:00 Herb Carey [facility] CBC W/PLT COUNT & AUTO 2022-09-21 11:30:00 Brii Carey [facility] BASIC METABOLIC PANEL 2022-09-21 11:30:00 Brii Carey CH I [facility] LACTATE DEHYDROGENASE (LDH) 2022-09-21 11:30:00 [facility] PROTEIN, TOTAL 2022-09-21 11:30:00 [facility] CBC W/PLT COUNT & AUTO 2022-09-21 11:30:00 Brii Carey [facility] ECG 12-LEAD 2022-09-21 08:54:19 [facility] 2022-09-21 08:54:19 Unknown, Hl7 Doctor [facility] BASIC METABOLIC PANEL 2022-09-21 04:17:00 Maria Aparicio [facility] CBC W/PLT COUNT & AUTO 2022-09-21 04:17:00 [facility] CBC W/PLT COUNT & AUTO 2022-09-21 04:17:00 Maria Aparicio Munroe [facility] HIGH SENSITIVITY TROPONIN I 2022-09-20 17:17:00 LoveStephany meadowsollie long [facility] BASIC METABOLIC PANEL 2022-09-20 11:41:00 LovelessAva [facility] LIPID PANEL 2022-09-20 11:41:00 LovelessAva [facility] MAGNESIUM 2022-09-20 11:41:00 [facility] CBC W/PLT COUNT & AUTO 2022-09-20 11:41:00 Ava Welsh [facility] HIGH SENSITIVITY TROPONIN I 2022-09-20 11:41:00 Paradise Welsh [facility] IRON, TIBC, % SAT. (WITHOUT 2022-09-20 11:41:00 AparicioNeeruMaria Martinez chris [facility] FERRITIN) Medical Aladdin FERRITIN 2022-09-20 11:41:00 Maria Aparicioel [facility] CBC W/PLT COUNT & AUTO 2022-09-20 11:41:00 [facility] ECHO W CONTRAST & DOPPLER 2022-09-20 07:54:10 [facility] URINALYSIS W/ MICROSCOPIC 2022-09-20 06:52:00 [facility] ECG 12-LEAD 2022-09-20 04:39:43 Unknown, Hl7 [facility] ECG 12-LEAD 2022-09-20 04:39:43 Unknown, Hl7 [facility] TRANSFUSE LEUKO-REDUCED RED 2022-09-20 02:31:00 [facility] BLOOD CELLS [facility] BLOOD CULTURE 2022-09-19 23:13:00 [facility] TYPE AND SCREEN, AUTOMATED 2022-09-19 23:12:00 [facility] HIGH SENSITIVITY TROPONIN I 2022-09-19 21:56:00 [facility] CBC W/PLT COUNT & AUTO 2022-09-19 21:56:00 [facility] COMPREHENSIVE METABOLIC 2022-09-19 21:56:00 [facility] LACTIC ACID, VENOUS 2022-09-19 21:56:00 [facility] B-TYPE NATRIURETIC FACTOR 2022-09-19 21:56:00 [facility] (BNP) [facility] HEMOGLOBIN A1C 2022-09-19 21:56:00 [facility] CBC W/PLT COUNT & AUTO 2022-09-19 21:56:00 Nikolay Cruz [facility] XR CHEST 1 VIEW PORTABLE / 2022-09-19 21:11:[address] [facility] CARDIAC CATH REPORT - SCAN 2022-09-19 00:00:00 ProviderAlireza [facility] CANCER ANTIGEN 125 2022-08-30 13:50:00 [facility] MAGNESIUM 2022-08-30 13:50:00 [facility] COMPREHENSIVE METABOLIC 2022-08-30 13:50:00 [facility] PANEL [facility] CBC W/AUTO DIFF WITH 2022-08-30 12:32:00 [facility] CBC W ABSOLUTE NEUTROPHIL 2022-08-30 06:39:00 Murtaza [facility] COMPREHENSIVE METABOLIC 2022-08-30 06:39:00 [facility] PREPARE RBC 2022-08-26 23:54:00 Donis Cruz [facility] IR CV ACCESS FLUORO 2022-08-22 15:59:[address] [facility] IR PORT-A-CATH PLACEMENT 2022-08-22 15:59:00 Donis Cruz [facility] U/S GUIDANCE FOR 2022-08-22 15:59:00 Donis Cruz [facility] VASCULAR ACCESS [facility] US THORACENTESIS 2022-08-18 11:57:00 Donis Cruz [facility] XR CHEST 1 VIEW PORTABLE / 2022-08-18 11:55:00 Arin Landry [facility] CBC W/PLT COUNT & AUTO 2022-08-18 09:50:00 Arin Landry [facility] PROTHROMBIN TIME/INR 2022-08-18 09:50:00 Arin Landry [facility] CBC W/PLT COUNT & AUTO 2022-08-18 09:50:00 Arin Landry [facility] ELECTROCARDIOGRAM COMPLETE 2022-08-15 14:55:00 B [facility] CT ABDOMEN/PELVIS WITH IV 2022-08-03 16:46:00 Donis Cruz [facility] CONTRAST [facility] CT CHEST WITH IV CONTRAST 2022-08-03 16:46:[address] [facility] AMB REF TO INTERVENTIONAL 2022-08-03 15:35:49 Ba [facility] EXTERNAL Medicine AMB REF TO CARDIOLOGY 2022-08-03 15:33:11 [facility] CANCER ANTIGEN 125 2022-08-03 14:42:00 [facility] CBC W/AUTO DIFF WITH 2022-08-03 14:42:00 [facility] COMPREHENSIVE METABOLIC 2022-08-03 14:42:00 [facility] CANCER ANTIGEN 125 2022-08-03 14:15:18 [facility] CBC W/AUTO DIFF WITH 2022-08-03 14:15:18 [facility] COMPREHENSIVE METABOLIC 2022-08-03 14:15:18 [facility] [id number] 2022-05-25 00:00:00 LEEGA [facility] [id number] 2022-05-25 00:00:00 LEEGA [facility] [id number] 2022-05-25 00:00:00 PATMA.12 [facility] [id number] 2022-05-25 00:00:00 PATMA.12 [facility] [id number] 2022-05-18 00:00:00 RASSA [facility] [id number] 2022-05-18 00:00:00 RASSA [facility] [id number] 2022-05-18 00:00:00 RASSA [facility] [id number] 2022-05-18 00:00:00 RASSA [facility] Plan of Care Planned Activity Planned Date Details Comments Source Future Scheduled 2023-08-[address] [facility] 00:[facility]00 [facility] Scre[facility] (12+) [code = Tobacco Cessation Counseling and Screening (12+)] Future Scheduled 2022-08-30 ZOSTER VACCINE (1 of [facility] Test 09:14:21 2) [code = ZOSTER Medicine VACCINE (1 of 2)] Future Scheduled 2022-08-30 FALL SCREEN [code = [facility] of Test 09:14:21 FALL SCREEN] Medicine Future Scheduled 2022-08-30 Screening for [facility] of Test 09:14:21 osteoporosis Medicine (procedure) [code = 299416019] Future Scheduled 2022-08-30 FLU VACCINE > 6 MONTHS B [facility] of Test 09:14:21 [code = FLU VACCINE > Medici ne 6 MONTHS] Future Scheduled 2022-08-30 COVID-19 Vaccine (#1) [facility] Test 09:14:21 [code = COVID-19 Medicine Vaccine (#1)] Future Scheduled 2022-08-30 Pneumococcal 65+ (1 - [facility] of Test 09:14:21 PCV) [code = Medicine Pneumococcal 65+ (1 - PCV)] Future Scheduled 2022-08-30 TETANUS SHOT (ADULT) [facility] Test 09:14:21 [code = TETANUS SHOT Medicin e (ADULT)] Future Scheduled 2022-08-30 BMI FOLLOW UP PLAN [facility] of Test 09:14:21 [code = BMI FOLLOW UP Medici ne PLAN] Future Scheduled 2022-08-24 COVID-19 Vaccine (#1) [facility] Test 09:21:34 [code = COVID-19 Medicine Vaccine (#1)] Future Scheduled 2022-08-24 Pneumococcal 65+ (1 - Ba [facility] Test 09:21:34 PCV) [code = Medicine Pneumococcal 65+ (1 - PCV)] Future Scheduled 2022-08-24 TETANUS SHOT (ADULT) [facility] Test 09:21:34 [code = TETANUS SHOT Medicin e (ADULT)] Future Scheduled 2022-08-24 BMI FOLLOW UP PLAN [facility] of Test 09:21:34 [code = BMI FOLLOW UP Medici ne PLAN] Future Scheduled 2022-08-24 ZOSTER VACCINE (1 of [facility] Test 09:21:34 2) [code = ZOSTER Medicine VACCINE (1 of 2)] Future Scheduled 2022-08-24 FALL SCREEN [code = [facility] of Test 09:21:34 FALL SCREEN] Medicine Future Scheduled 2022-08-24 Screening for [facility] of Test 09:21:34 osteoporosis Medicine (procedure) [code = 964512611] Future Scheduled 2022-08-24 FLU VACCINE > 6 MONTHS B [facility] of Test 09:21:34 [code = FLU VACCINE [...] Ce nter VACCINE (#1)] Future Scheduled 2021-11-[address]CREENING [facility] Test 00:00:00 [code = FALLS RISK Medical C enter SCREENING] Future Scheduled 2021-11-20 Medicare IPPE (WELCOME [facility] 00:[facility]00 TO MEDICARE) [code = Medical Center Medicare IPPE (WELCOME TO MEDICARE)] Future Scheduled 2021-11-[address] [facility] 00:00:00 (12+) [code = Medical Center DEPRESSION SCREENING (12+)] Future Scheduled 2021-11-[address] [facility] 00:00:00 (12+) [code = Medical Center DEPRESSION SCREENING (12+)] Future Scheduled 2021-11-20 F[address]S RISK SCREENING [facility] 00:00:00 [code = FALLS RISK Medical C enter SCREENING] Future Scheduled 2021-11-20 Medicare IPPE (WELCOME [facility] 00:00:00 TO MEDICARE) [code = Medical Center Medicare IPPE (WELCOME TO MEDICARE)] Future Scheduled 2021-11-20 FALLS RISK SCREENING CHI [...] Medical Center DEPRESSION SCREENING (12+)] Future Scheduled 2000 PNEUMOCOCCAL 65+ YRS [facility]I [...] DTAP/TDAP/TD VACCINES (1 - Tdap)] Future Scheduled [address] [facility] 00:00:00 [facility] r Screening (12+) [code = Tobacco Cessation Counseling and Screening (12+)] Future Scheduled 1941 PNEUMOCOCCAL 65+ YRS [facility] Test 00:00:00 (1 - PCV) [code = Medical Ce nter PNEUMOCOCCAL 65+ YRS (1 - PCV)] Future Scheduled 1935 COVID-19 VACCINE (#1) CH [...] Type Clinicians Facility Department ID 2022-08-21 Outpatient [facility] Surgery [id number] [facility] 21:50:53 2022-06-20 Outpatient [facility] [id number] [place] 11:40:57 [id number] [facility] 2022-06-16 Outpatient [facility] [id number] [place] 17:07:26 [id number] [facility] 2022-06-15 Outpatient [facility] [id number] [place] 16:25:36 [id number] [facility] 2022-05-18 Inpatient EM LUISANA PutnamCL INTE.02 [id number] [facility] 14:24:00 Frank [id number] [facility] 2022-02-08 Outpatient [facility] [id number] Common 16:02:01 [facility] 2021-12-15 Outpatient [facility] [id number] Common 12:01:20 [id number] [facility] 2021-12-15 [facility] [id number] Common 11:54:02 [id number] [facility] 2022-12-06 2022-12-06 Outpatient BCM BC [id number] [facility] 00:00[facility]00 [facility] 2022-12-06 2022-12-06 Outpatient BCM BCM [id number] [facility] 00:00:00 00:00:00 [facility] 2022-11-15 2022-11-15 Outpatient BCM BCM [id number] [facility] 00:00:00 00:00:00 [facility] 2022-11-15 2022-11-15 Outpatient BCM BCM [id number] [facility] 00:00:00 00:00:00 [facility] 2022-10-26 2022-10-26 Outpatient CHELU, [facility] [id number] [facility] 00:00:00 00:00:00 MIHAIL [facility] 2022-10-25 2022-10-25 Outpatient BCM BC [id number] [facility] 00:00:00 00:00:00 [facility] 2022-10-25 2022-10-25 Outpatient BCM BCM [id number] [facility] 00:00:00 00:00:00 [facility] 2022-09-19 2022-09-28 Inpatient ER AJ JIANG Cardiac ICU [id number] [facility] 20:04:00 18:00:00 CAROLANN 2022-09-19 2022-09-28 [facility] Jimy Pepper [facility] [id number] [facility] [address] 20:04:00 18:00:00 [facility] Maria Aparicio [facility] Minal Fort[place] Heather Renee 2022-09-27 2022-09-27 Anesthesia Creo, [facility] [id number] 13:30:00 17:09:00 Event [facility] 2022-09-27 2022-09-27 Surgery Jennifer, [facility] [id number] 14:45:00 16:38:00 [facility] 2022-09-21 2022-09-[address] [facility] [id number] 00:00:00 00:00:[address] [facility] 2022-09-20 2022-09-20 Outpatient [facility] [id number] [facility] 00:00:00 23:59:00 [facility] 2022-09-20 2022-09-20 Travel [facility] [id number] [facility] 00:[facility]:00 [facility] 2022-09-19 2022-09-19 Outpatient BCM [facility] [id number] [facility] 20:04:00 23:59:00 [facility] 2022-08-30 2022-08-30 [facility] [id number] [facility] 12:46:22 23:59:00 [facility] 2022-08-30 2022-08-30 Office DEBORAH Holloway [id number] [facility] 08:20:00 09:15:54 Visit Jose Chris AMBULATOR [id number] College Y [id number] of [id number] Medi rafael 375 e 2022-08-25 2022-08-25 Infusion Anthony, [facility] [id number] [facility] [address] 08:30:00 14:30:00 [facility] 2022-08-25 2022-08-[address] [facility] [id number] 09:15:00 09:15:00 [facility] 2022-08-25 2022-08-25 Emergency ER [facility] Emergency [id number] [facility] 09:15:00 09:15:00 2022-08-25 2022-08-25 Outpatient EL [facility]H [facility] [id number] [facility] 00:00:00 00:00:00 2022-08-24 2022-08-24 Outpatient BCM [facility] [id number] [facility] 00:00:00 23:59:00 [facility] 2022-08-24 2022-08-24 [facility] [id number] 11:30:00 11:45:00 [facility] 2022-08-24 2022-08-24 [facility] [id number] [facility] 07:03:08 10:10:49 Visit DONIS Lennon 350.1.13.21 Co srinivas 0.2.7.2.686 of [id number] [facility] rafael 520 e 2022-08-24 2022-08-24 Outpatient EL [facility] SLE [id number] [facility] 00:00:00 00:00:00 2022-08-22 2022-08-22 [facility] [id number] 11:00:00 11:00:00 Encounter [facility] 2022-08-22 2022-08-22 [facility] [id number] 11:00:00 11:00:00 Encounter [facility] 2022-08-22 2022-08-22 Surgery [facility] [id number] 08:52:00 09:31:00 [facility] 2022-08-22 2022-08-22 Surgery [facility] [id number] 08:52:00 09:31:00 [facility] 2022-08-22 2022-08-22 [facility] [id number] 08:52:00 08:52:00 Encounter [facility] 2022-08-22 2022-08-22 [facility] [id number] 08:52:00 08:52:00 Encounter [facility] 2022-08-22 2022-08-22 Outpatient MARKOS MARISCALKATHRYN SLE SLE [id number] [facility] 00:00:00 00:00:00 DONIS 2022-08-18 2022-08-18 Outpatient MARKOS CRUZ, SLE SLE [id number] [facility] 09:33:59 23:59:00 DONIS 2022-08-18 2022-08-18 [facility] [id number] 09:33:59 23:59:00 Encounter [facility] 2022-08-18 2022-08-18 [id number] 09:33:59 23:59:00 Encounter [facility] 2022-08-18 2022-08-18 [facility] [id number] 09:45:00 10:00:00 Only [facility] 2022-08-18 2022-08-18 [facility] [id number] 09:45:00 10:00:00 Only [facility] 2022-08-18 2022-08-18 Outpatient SLE SLEH [id number] [facility] 09:45:07 09:45:07 2022-08-15 2022-08-15 [facility] [id number] [facility] 14:14:24 15:12:10 ISAIAS hernandez of Medicin e 2022-08-15 2022-08-15 Outpatient [facility] [id number] [facility] 11:34:29 11:34:29 Ld hernandez of Medicin e 2022-08-15 2022-08-15 Outside [facility] [id number] 00:00:00 00:00:00 Orders [facility] 2022-08-15 2022-08-15 [facility] [id number] 00:00:00 00:00:00 Orders [facility] 2022-08-09 2022-08-09 [facility] [id number] 00:00:00 00:00:00 Only [facility] 2022-08-09 2022-08-09 [facility] [id number] 00:00:00 00:00:00 Only [facility] 2022-08-03 2022-08-03 Outpatient MARKOS CRUZ SLETonia SLE [id number] [facility]H 16:03:45 23:59:00 [facility] 2022-08-03 2022-08-[address] [facility] [address] [facility] [id number] [facility] 16:03:45 23:59:00 [facility] 2022-08-03 2022-08-03 [facility] [id number] [facility] 16:03:45 23:59:00 Encounter 1, [facility] 2022-08-03 2022-08-03 Outpatient MARKOS CRUZ SLE SLE [id number] SLEH 16:01:08 16:02:00 [facility] 2022-08-03 2022-08-[address] [facility] [address] [facility] [id number] [facility] 16:01:08 16:02:00 Encounter 1, [facility] Room [facility] 2022-08-03 2022-08-[address] [facility] [address] [facility] [id number] [facility] 16:01:08 16:02:00 Encounter 1, [facility] Room [facility] 2022-08-03 2022-08-03 Outpatient ANTHONY [facility] [id number] [facility] 13:15:55 15:15:43 DONIS hernandez of Medicin e 2022-08-03 2022-08-03 Outside Anthony, [facility] [id number] 00:00:00 00:00:00 Orders [facility] 2022-08-03 2022-08-03 Outside Anthony, [facility] [id number] 00:00:00 00:00:00 Orders [facility] 2022-07-13 2022-07-13 Outpatient SINGH, [facility] [id number] [place] 14:00:00 14:00:00 [facility] 2022-06-13 2022-06-17 [facility] [id number] Memoria 00:20:04 22:00:00 r Tomas 00 l [facility] 2022-06-13 2022-06-17 Inpatient [facility] [id number] Memoria 00:20:04 22:00:00 r Tomas 00 l [facility] 2022-06-13 2022-06-17 Inpatient E MUNROE, [facility] [id number] 01:02:00 17:00:00 [facility] 2022-06-12 2022-06-17 [place] [id number] 19:20:04 17:00:00 Chapis 00 2022-06-12 2022-06-12 Outpatient Naveen, MHSE SE [id number] 19:20:04 19:20:04 [facility] 00 [facility] 2022-06-03 2022-06-03 Outpatient Canales_M DMG DMG [id number] [facility] 07:17:00 07:17:00 0715 [facility]ica l Group 2022-05-20 2022-05-26 Inpatient EM Ariella Shaffer HCACL INTE.02 [id number] [facility] 14:05:00 14:06:00 93 [facility] 2022-05-20 2022-05-26 Inpatient EM Indy HCACL INTE.02 [id number] [facility] 14:05:00 14:06:00 Frank [id number] [facility] 2021-11-11 2021-11-11 Outpatient Canales_M DMG DMG [id number] [facility] 10:30:00 10:30:00 1223 Medica l Group 2021-05-17 2021-05-17 Outpatient Love-Mbayo VFP [facility] [id number] [facility] 02:54:00 02:54:00 _A_AH 14049 Family Practic e 2021-02-22 2021-02-22 Outpatient Canales_M DMG DMG [id number] [facility] 11:38:00 11:38:00 0405 Medica l Group 2021-02-22 2021-02-22 Iliana BRAD MA - [id number] D evoted 00:00:00 00:00:00 Mary Schroederes, Health Group PROPERTY CLAIMS ADJUSTER: [id number] [facility] [address], [place] [address] , Ph. 2021-02-22 2021-02-22 Outpatient Gurvinder, [facility] [id number] 00:00:00 00:00:00 Iliana [id number] Mary [id number] 2021-02-19 2021-02-19 [id number] [facility] 11:15:00 11:15:00 0402 Medica l Group 2020-10-06 2020-10-06 (IN/ASP) STLC STLC [id number] C ommon 00:00:00 00:00:00 INJ ASP [facility] 2020-09-29 2020-09-29 [facility] [id number] C ommon 00:00:00 00:00:00 INJ [facility] 2020-09-22 2020-09-22 (IN/ASP) [facility] [id number] C ommon 00:00:00 00:00:00 INJ ASP [facility] 2020-09-10 2020-09-10 [facility] [id number] Co mmon 00:00:00 00:00:00 VISIT EST Spir it PT LEVEL 3 - [facility] 2020-05-19 2020-05-19 Out[facility] [id number] Common 08:30:00 08:30:00 t [facility] 2020-04-30 2020-04-30 Outpatient Love-Magdaayo VFP VFP [id number] [facility] 11:59:00 11:59:00 _A_AH 24738 Family Practic e 2020-04-20 2020-04-20 Outpatient Love-Mbayo VFP VFP [id number] 06:26:00 06:26:00 _A_AH 23026 Family Practic e 2020-03-30 2020-03-30 Outpatient Cachorro [facility] [id number] 02:45:00 02:45:00 _A_AH 42073 Family Practic e 2020-02-24 2020-02-24 Outpatient [facility] [id number] Common 14:30:00 14:30:00 t Bone Bone and Spiri t and Joint [facility] - [facility] 2020-02-18 2020-02-18 Rachel [facility] [place] - [id number] V illage 00:00:00 00:00:00 OlveJessie [facility] Evelio munguia 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 2020-01-29 2020-01-29 Outpatient [facility] [id number] Common 14:19:00 14:19:00 t Bone Bone and Spiri t and Joint [facility] - [facility] 2020-01-28 2020-01-28 Outpatient [facility] [id number] Common 10:45:00 10:45:00 t Bone Bone and Spiri t and Joint [facility] - [facility] 2020-01-08 2020-01-08 Outpatient Cachorro [facility] [address] [place] [address] 07:20:00 07:20:00 _A_AH 15896 Family Practic e 2019-06-12 2019-06-12 Outpatient [facility] [id number] Common 11:07:00 11:07:00 t Bone Bone and Spiri t and Joint [facility] - [facility] 2019-06-06 2019-06-06 Outpatient [facility] [id number] Common 10:00:00 10:00:00 t Bone Bone and Spiri t and Joint Joint - [facility] 2019-05-20 2019-05-20 Outpatient [facility] [id number] Common 09:30:00 09:30:00 t Bone Bone and Spiri t and Joint [facility] - [facility] Results Test Description Test Time Test Comments Results Result Comments Source MAGNESIUM 2022-09-28 05:08:16 Test Item Value Reference Range Interpretation Comme nts MAGNESIUM (BEAKER) (test code = 627) 1.7 mg/dL 1.6-2.6 Legal Intern ID Verenice XIAO WBASIC METABOLIC [id number] 05:08:15 Test Item Value Reference Range Interpretation Comments SODIUM (BEAKER) 134 meq/L 136-145 L (test code = 381) POTASSIUM 4.7 meq/L 3.5-5.1 (BEAKER) (test code = 379) CHLORIDE (BEAKER) 95 meq/L 98-107 L (test code = 382) CO2 (BEAKER) 32 meq/L 22-29 H (test code = 355) BLOOD UREA 19 mg/dL 7-21 NITROGEN (BEAKER) (test code = 354) CREATININE 0.96 mg/dL 0.57-1.25 (BEAKER) (test code = 358) GLUCOSE RANDOM 118 mg/dL 70-105 H (BEAKER) (test code = 652) CALCIUM (BEAKER) 8.5 mg/dL 8.4-10.2 (test code = 697) EGFR (BEAKER) 57 Interpretatio n of eGFR (test code = mL/min/1.73 values Stage De scription 1092) sq m Result G1 Dionne l or high >=90 G2 Mildly decreased 60-89 G3a Mildl y to moderately 45-5 9 G3b Moderately to s everely 30-44 G4 Severl y decreased 15-29 G5 Kidney failure <15Reported eGF R is based on the CKD-EPI 2020 equation that d oes not use a race coefficientEsti mated GFR is not as accur ate as Creatinine Kailyn diamond in predicting glom erular filtration rate . Estimated GFR is not appl icable for dialysis patien ts Legal Intern ROSA XIAO WCBC W/PLT COUNT & AUTO [id number] 04:42:42 Test Item Value Reference Range Interpretation Comments WHITE BLOOD CELL COUNT (BEAKER) 4.4 K/ L 3.5-10.5 (test code = 775) RED BLOOD CELL COUNT (BEAKER) 2.69 M/ L 3.93-5.22 L (test code = 761) HEMOGLOBIN (BEAKER) (test code = 7.4 GM/DL 11.2-15.7 L 410) HEMATOCRIT (BEAKER) (test code = 24.3 % 34.1-44.9 L 411) MEAN CORPUSCULAR VOLUME (BEAKER) 90 fL 79-95 (test code = 753) MEAN CORPUSCULAR HEMOGLOBIN 27.5 pg 25.6-32.2 (BEAKER) (test code = 751) MEAN CORPUSCULAR HEMOGLOBIN CONC 30.5 GM/DL 32.2-35.5 L (BEAKER) (test code = 752) RED CELL DISTRIBUTION WIDTH 20.0 % 11.7-14.4 H (BEAKER) (test code = 412) PLATELET COUNT (BEAKER) (test 313 K/CU MM 150-450 code = 756) MEAN PLATELET VOLUME (BEAKER) 9.3 fL 9.4-12.3 L (test code = 754) NUCLEATED RED BLOOD CELLS 0 /100 WBC 0-0 (BEAKER) (test code = 413) NEUTROPHILS RELATIVE PERCENT 78 % (BEAKER) (test code = 429) LYMPHOCYTES RELATIVE PERCENT 13 % (BEAKER) (test code = 430) MONOCYTES RELATIVE PERCENT 8 % (BEAKER) (test code = 431) EOSINOPHILS RELATIVE PERCENT 0 % (BEAKER) (test code = 432) BASOPHILS RELATIVE PERCENT 0 % (BEAKER) (test code = 437) NEUTROPHILS ABSOLUTE COUNT 3.43 K/ L 1.56-6.13 (BEAKER) (test code = 670) LYMPHOCYTES ABSOLUTE COUNT 0.58 K/ L 1.18-3.74 L (BEAKER) (test code = 414) MONOCYTES ABSOLUTE COUNT (BEAKER) 0.37 K/ L 0.24-0.36 H (test code = 415) EOSINOPHILS ABSOLUTE COUNT 0.00 K/ L 0.04-0.36 L (BEAKER) (test code = 416) BASOPHILS ABSOLUTE COUNT (BEAKER) 0.00 K/ L 0.01-0.08 L (test code = 417) IMMATURE GRANULOCYTES-RELATIVE 0.20 % 0.00-1.00 PERCENT (BEAKER) (test code = 2801) RAD, CHEST, 1 VIEW, NON [id number] 20:44:00Reason for exam:- >pacemakerShould this be performed at the bedside?->Yes [facility] : 1935 Sex: FFINAL REPORT RAD, CHEST, 1 VIEW, NON DEPT TECHNIQUE: Frontal view(s) of the chest. INDICATION: pacemaker COMPARISON: 09/21/2022 FINDINGS/IMPRESSION: Lines/Tubes: Right chest wall dual-lead pacemaker. Left chest wall Mediport with tip obscured by telemetry wires. Lungs/pleura: Worsening now moderate to large right pleural effusion. Small left pleural effusion. Hazy opacities bilaterally sparing the apices, likely edema. No pneumothorax. Heart and Mediastinum: Mildly prominentcardiac silhouette, accentuated by technique, no convincing change. Soft Tissues and Bones: Unchanged. Signed: Juan Miguel Thomsa Verified Date/Time: 09/27/2022 20:44:10 [facility] METABOLIC [id number] 05:36:45 Test Item Value Reference Range Interpretation Comments SODIUM (BEAKER) 133 meq/L 136-145 L (test code = 381) POTASSIUM 3.3 meq/L 3.5-5.1 L (BEAKER) (test code = 379) CHLORIDE (BEAKER) 92 meq/L 98-107 L (test code = 382) CO2 (BEAKER) 32 meq/L 22-29 H (test code = 355) BLOOD UREA 19 mg/dL 7-21 NITROGEN (BEAKER) (test code = 354) CREATININE 0.71 mg/dL 0.57-1.25 (BEAKER) (test code = 358) GLUCOSE RANDOM 107 mg/dL 70-105 H (BEAKER) (test code = 652) CALCIUM (BEAKER) 8.2 mg/dL 8.4-10.2 L (test code = 697) EGFR (BEAKER) 82 Interpretatio n of eGFR (test code = mL/min/1.73 values Stage De scription 1092) sq m Result G1 Dionne l or high >=90 G2 Mildly decreased 60-89 G3a Mildl y to moderately 45-5 9 G3b Moderately to s everely 30-44 G4 Severl y decreased 15-29 G5 Kidney failure <15Reported eGF R is based on the CKD-EPI 2020 equation that d oes not use a race coefficientEsti mated GFR is not as accur ate as Creatinine Kailyn lobo in predicting glom erular filtration rate . Estimated GFR is not appl icable for dialysis patien ts Legal Intern ID - FELIPA [id number] 05:36:45 Test Item Value Reference Range Interpretation Comments MAGNESIUM (BEAKER) (test code = 1.4 mg/dL 1.6-2.6 L 627) Legal Intern ID - TRUPTILUIS LCBC W/PLT COUNT & AUTO [id number] 04:51:24 Test Item Value Reference Range Interpretation Comments WHITE BLOOD CELL COUNT (BEAKER) 3.4 K/ L 3.5-10.5 L (test code = 775) RED BLOOD CELL COUNT (BEAKER) 2.84 M/ L 3.93-5.22 L (test code = 761) HEMOGLOBIN (BEAKER) (test code = 7.8 GM/DL 11.2-15.7 L 410) HEMATOCRIT (BEAKER) (test code = 24.8 % 34.1-44.9 L 411) MEAN CORPUSCULAR VOLUME (BEAKER) 87 fL 79-95 (test code = 753) MEAN CORPUSCULAR HEMOGLOBIN 27.5 pg 25.6-32.2 (BEAKER) (test code = 751) MEAN CORPUSCULAR HEMOGLOBIN CONC 31.5 GM/DL 32.2-35.5 L (BEAKER) (test code = 752) RED CELL DISTRIBUTION WIDTH 19.9 % 11.7-14.4 H (BEAKER) (test code = 412) PLATELET COUNT (BEAKER) (test 327 K/CU MM 150-450 code = 756) MEAN PLATELET VOLUME (BEAKER) 9.2 fL 9.4-12.3 L (test code = 754) NUCLEATED RED BLOOD CELLS 0 /100 WBC 0-0 (BEAKER) (test code = 413) NEUTROPHILS RELATIVE PERCENT 58 % (BEAKER) (test code = 429) LYMPHOCYTES RELATIVE PERCENT 29 % (BEAKER) (test code = 430) MONOCYTES RELATIVE PERCENT 11 % (BEAKER) (test code = 431) EOSINOPHILS RELATIVE PERCENT 2 % (BEAKER) (test code = 432) BASOPHILS RELATIVE PERCENT 0 % (BEAKER) (test code = 437) NEUTROPHILS ABSOLUTE COUNT 1.96 K/ L 1.56-6.13 (BEAKER) (test code = 670) LYMPHOCYTES ABSOLUTE COUNT 0.99 K/ L 1.18-3.74 L (BEAKER) (test code = 414) MONOCYTES ABSOLUTE COUNT (BEAKER) 0.36 K/ L 0.24-0.36 (test code = 415) EOSINOPHILS ABSOLUTE COUNT 0.05 K/ L 0.04-0.36 (BEAKER) (test code = 416) BASOPHILS ABSOLUTE COUNT (BEAKER) 0.01 K/ L 0.01-0.08 (test code = 417) IMMATURE GRANULOCYTES-RELATIVE 0.30 % 0.00-1.00 PERCENT (BEAKER) (test code = 2801) BASIC METABOLIC [id number] 09:39:28 Test Item Value Reference Range Interpretation Comments SODIUM (BEAKER) 135 meq/L 136-145 L (test code = 381) POTASSIUM 3.8 meq/L 3.5-5.1 (BEAKER) (test code = 379) CHLORIDE (BEAKER) 93 meq/L 98-107 L (test code = 382) CO2 (BEAKER) 32 meq/L 22-29 H (test code = 355) BLOOD UREA 19 mg/dL 7-21 NITROGEN (BEAKER) (test code = 354) CREATININE 0.72 mg/dL 0.57-1.25 (BEAKER) (test code = 358) GLUCOSE RANDOM 102 mg/dL 70-105 (BEAKER) (test code = 652) CALCIUM (BEAKER) 8.4 mg/dL 8.4-10.2 (test code = 697) EGFR (DESTINEY) 81 Interpretatio n of eGFR (test code = mL/min/1.73 values Stage De scription 1092) sq m Result G1 Dionne l or high >=90 G2 Mildly decreased 60-89 G3a Mildl y to moderately 45-5 9 G3b Moderately to s everely 30-44 G4 Severl y decreased 15-29 G5 Kidne y failure <15Reported eGF R is based on the CKD-EPI 2020 equation that d oes not use a race coefficientEsti mated GFR is not as accur ate as Creatinine Kailyn lobo in predicting glom erular filtration rate . Estimated GFR is not appl icable for dialysis patien ts Legal Intern ID - MITCHSARS-CoV2/RT-PCR (Asymptomatic ONLY)2022-09-26 02:40:50 Test Item Value Reference Interpretation Comments Range SARS-COV2/RT-PCR Negative Negative The SARS-Co V-2 (test code = target nucleic 02335-6) acids are not detected in thi s specimen. Negat vidal results do not preclude SARS-C oV-2 infection and should not be u sed as the sole bas is for patient management decisions. Nega tive results must be combined with clinical observations, patient history , and epidemiolog ical information. A false negative result may occu r if a specimen is improperly collected, transported or handled. This S ARS CoV-2 test is a rapid, real-lexus e RT-PCR test intended for th e qualitative detection of nucleic acid fr om SARS-CoV-2 in a nasopharyngeal swab specimen collec lavon from individual s suspected of COVID-19 by the ir healthcare provider. ANGE (test code = This test has been ANGE) authorized by FDA under an EUA for use by authorized laboratories. This test is only authorized for the duration of the declaration that circumstances exist justifying the authorization of emergency use of in vitro diagnostic tests for detection and/or diagnosis of COVID-19 under Section 564(b)(1) of the Federal Food, Drug and Cosmetic Act, 21 U.S.C. 360bbb-3(b)(1), unless the authorization is terminated or revoked sooner. Fact Sheet for Healthcare Providers: https://www.[employer]/Documents/Xp ert%20Xpress%20SAR S%20CoV-2/Fact%20S heets/302-3802%20S ARS-COV-2%20HEALTH CARE%20PROVIDERS%2 0FACT%20SHEET.pdf Fact Sheet for Healthcare Patients: https://www.[employer]/Documents/Xp ert%20Xpress%20SAR S%20CoV-2/Fact%20S heets/302-3801%20S ARS-COV-2%20PATIEN T%20FACT%20SHEET.p df Lab Interpretation Normal (test code = 01928-4) [facility])2022-09-26 02:40:50 Test Item Value Reference Range Interpretation Comments SARS-COV2/RT-PCR Negative Negative The SARS-Co V-2 target (test code = nucleic acids a re not [id number]) detected in thi s specimen. Negative result s do not preclude SARS-C oV-2 infection and s hould not be used as the opal e basis for patient managem ent decisions. Nega tive results must be combine d with clinical observ ations, patient history , and epidemiological information. A false negativ e result may occur if a spec imen is improperly flores ected, transported or handled. This SARS CoV-2 test is a rapid, real-time RT-PC R test intended for th e qualitative detection of nu cleic acid from SARS-CoV-2 in a nasopharyngeal swab specimen collected from individuals suspected of CO VID-19 by their healthcar e provider. This test has been authorized by FDA under an EUA for use by authorized laboratories. This test is only authorized for the duration of the declaration that circumstances exist justifying the authorization of emergency use of in vitro diagnostic tests for detection and/or diagnosis of COVID-19 under Section 564(b)(1) of the Federal Food, Drug and Cosmetic Act, 21 U.S.C. 360bbb-3(b)(1), unless the authorization is terminated or revoked sooner. Fact Sheet for Healthcare Providers: https://www.[employer]/Documents/Xpert%20Xpress%20SARS%20CoV-2/Fact%20Sheets/302-3802%24UTCY-UYA-3%20 HEALTHCARE%20PROVIDERS%20FACT%20SHEET.pdf Fact Sheet for Healthcare Patients: https://www.[employer]/Documents/Xpert%20Xp ress%20SARS%20CoV-2/Fact%20Sheets/3023801%82BIJP-BNR-6%20PATIENT%20FACT%20SHEET .pdfBLOOD [id number] 01:00:25 Test Item Value Reference Range Interpretation Comments CULTURE (BEAKER) (test No growth in 5 days code = 1095) The specimen volume collected for this blood culture was below the optimum (10 mL per bottle or 20 mL total). Use of lower volumes may adversely affect recovery and/or detection times of some organisms.BLOOD [id number] 01:00:25 Test Item Value Reference Range Interpretation Comments CULTURE (BEAKER) (test No growth in 5 days code = 1095) The specimen volume collected for this blood culture was below the optimum (10 mL per bottle or 20 mL total). Use of lower volumes may adversely affect recovery and/or detection times of some organisms.BASIC METABOLIC PANEL 2022-09-24 16:25:36 Test Item Value Reference Range Interpretation Comments SODIUM (BEAKER) 133 meq/L 136-145 L (test code = 381) POTASSIUM 3.5 meq/L 3.5-5.1 (BEAKER) (test code = 379) CHLORIDE (BEAKER) 93 meq/L 98-107 L (test code = 382) CO2 (BEAKER) 28 meq/L 22-29 (test code = 355) BLOOD UREA 24 mg/dL 7-21 H NITROGEN (BEAKER) (test code = 354) CREATININE 0.78 mg/dL 0.57-1.25 (BEAKER) (test code = 358) GLUCOSE RANDOM 158 mg/dL 70-105 H (BEAKER) (test code = 652) CALCIUM (BEAKER) 8.2 mg/dL 8.4-10.2 L (test code = 697) EGFR (BEAKER) 73 Interpretatio n of eGFR (test code = mL/min/1.73 values Stage De scription 1092) sq m Result G1 Dionne l or high >=90 G2 Mildly decreased 60-89 G3a Mildl y to moderately 45-5 9 G3b Moderately to s everely 30-44 G4 Severl y decreased 15-29 G5 Kidney failure <15Reported eGF R is based on the CKD-EPI 2020 equation that d oes not use a race coefficientEsti mated GFR is not as accur ate as Creatinine Kailyn lobo in predicting glom erular filtration rate . Estimated GFR is not appl icable for dialysis patien ts Legal Intern ID - ADMINSpecimen slightly ictericBody fluid culture + gram stain 2022-09-24 11:38:05 Test Item Value Reference Range Interpretation Comments Result (test code = 6463-4) No growth [facility] + [facility]AM [id number] 11:38:05 Test Item Value Reference Range Interpretation Comments CULTURE (BEAKER) (test code = 1095) No growth [id number] 17:07:59 Test Item Value Reference Range Interpretation Comments Case Report (test code Medical Cytology = 104) Report Case: [id number] Authorizing Provider: Javon Mcdowell Collected: 09/21/2022 01:31 PM Ordering Location: [address] Received: 09/21/2022 03:30 PM Service Pathologist: Jimena Anton MD Specimen: Pleural Cavity L DIAGNOSIS (test code = n3iliRMqWKYyn2ydGMCbpL 3220) FuZzEwMzNcZnRuYmpcdWMx IHtccnRmMVxlcGljOTYwMl drksTbZPOumEArK1Qzrxzi PMmkLR5bPI9xzWvejJDblI ZtIKZkVxAev7zvv986yUGt u2aoSUNAvaymfBe2iTfoX8 3nt3A3BpfwU64kgPSfKHM3 WFKuNBDgoPSgVAGcOFG6LS ChdEZnA2quXKBoMF6mwkvu NFotKXscZXDheKS6PLRmoY YeG2YqWTNhAZieFXPeglx8 WlRsSi1cbGJxcJswJGwwCL JkXHBsYWluXGZzMjAgTEVG VCBQTEVVUkFMIEZMVUlEIC tJVNRRR6QWItWyUT6CBUXJ FYqiXkkIL6ulOwVvsNMlTG NpJU6gFhOFZRGUATjNYsHS QVRFRCBBVFlQSUNBTCBNVU kXUK9LR9yYPZAPXNQZBFjJ IFBSRVNFTlQgKFNFRSBDT0 5EIF7FKEwxBYQ9p3oaxEVf XHNzdGUxODAwMFxhbnNpXG MxReibwppjXYNgJMM5rbNh QACaNXjgGUWtUZogEa5viC LemGnwHxUtRRUxa0eccpVC nqxwwGr3n5eoRIQbOsM9hJ VfUTksD5nwvvBwmEPhWHCl SYu4wR81MBUshF3knQWrOA jjgfOdKeI7OSyuMNZiPcE4 PUDdxMLmNEDjC3hrDEQhUS urFBWdFMlnvAPwGIN5bOhl i0Y9pGBqdKPfxDvpCsPlAl CoWmOCe3BdEFv7jGmtC1Gs DDKnTtE0nDOaPBRbKYbsBV MnTHJuspY5pW29JYfqxpC3 qOXbd1Gav71kl857sJ3maU AkLSU3AISyRWKslIVgLAVp XDU2JNBeeKQyD7phKAEoOE 5idslvWVvvGKnrLQTcuZU1 LIKspLWsY2DiQILrBCgaZT Lwqgo5GzOrYe7huMPevLfq YCkfw1ikp2yehRImNuq6ML DyYwYhGghyISxja6Zvu7tx LHQdde0lFNN4fUXaqZmsf2 Z5uWAvTETxoSJyYITcYB7p eCTtFPWmrG7bgukmRCLrXi BriiylJYRakJmnjnXtSn7r zNwbPVJ6LFadS9qshH2nUq S0MBrwU9zghP1mCZs5PZhk ZVWhuYN2wfK1WEVvhLQcD0 LqpY5tXKWbBS7msvf9w5bt ZTS2JHyqAUMkItN0dqG4EL ZbdVCnNSGpzImjICitp189 ZES5UpBmTVEiz6YzN0UlcP xmP52obVwvR77nWSXxsCuy fF8uhMfhfN7xCbQqPfKrCJ pfxHwzWS3uZXNfJ2bygKWk IRMmCBTkG1vvEzUihL1uyU udNMlaqqToGZQiMzk1XDNy xZNlCGMeOyn7KEUmHTIwS1 9eochwCMY3vT6jj9iam6Bh PXhqYCW5BTRhx76vDGcfyz U1JKvbWv41ONnqQUE8DZmg cGFyfX0= COMMENT (test code = w6sowBHvXCQpuAY6ThVoLB 7996) Sry4ici5XgfFTluLWgFXpg wSAghzUtta13yOJ7mJ81KA 3aVDRwTtV3PBKuxhI4Lrq0 EYTqSJSphLJoE557a0maq8 djvoQurYV3pCwxYGFnvsfd PeE8BCwyHHWurwpsSPh6GB nbEOSpuRP7DFWcvFSaY2Wn MQCyGL0getx3AFU5POniKM HfSpQ0GYNhlCCcINCvcMxk KLlfz518JRR3WrAdNMKrli BwpAlzlE6hYtAbTMSTfJXt c4JcU9kcCN6qyJAnmKgbx5 SeeAw3wZVaFBFiTIZbZSMx pvMkLBVhCI4mQ78gEYEqGZ GcyK1tOO4tq532nSEtvTPu SRHrnVofHXXyqFk6GRWjs0 d4wJQwL8G1FUZxuePeHP7s SQNyz35wGVAsNLUyWWqmCQ EgcmFyZSBhdHlwaWNhbCBj RGzkJRdvaTkdEVDbRD6xvi U1gNRiHGDzJP0tNUMvKR5d ZU74nYIzuKqdLJ14B7zreS 9gANXypt3= CPT Code(s) (test code q2edcWLkSFXhjIR5DiXeUO = 3357) Rou1koy2ZkhSKkvXBaMYdi cGDfpvNlfe03zIE9vL70FU 6hRBByTlC5FSQskzK4Cig7 DLAbOCChvWUzX952g5ort1 feefQimTZ3bIcnRFRgdzgg IpK9ZKqzFLHxomgqMZm1PA tqOSKtqMY9DSTstHXbO7Bh IKHaLV3tqho9FLQ7ABemPX WlDbZ2ZPPslPEyZNInpXaa NKlge546RBY2ZuIoUQYufy LmdLyosL7cWoAyXCW6ILQe OCwgODgzMDVccGFyfQ== CLINICAL DATA (test c9nxdBRxDVKvhOS0ExWoPW code = 3355) Smx3ryu3JghEMawMKuHLmp mDQnvuWuoe43fEQ4pQ27QO 8sMVRiMoH7JMFmrpV5Qxq3 TVBpQDUtxEJqG473s1ooz8 durnFlwIV2RXOtTZLlD1Tl WX7wSTUrqMCxO82kyFMgRH G8HVJtFQHvvYQjQRJaJUI8 IUNjgSJbJ4oeZLQxSM4vwg shONmzCMekTVGkcQP4AWKs zBRtP5JlGJAoJKqwVEHsbk n0KcXcWh9zmKYkpOjuJQhm YXJkXHBsYWluXGZzMjBcY2 TyYLW2UXhuFKcAQC76GJJw JW3vF6NvR5OdSDmtyUarrU VyaXRvbmVhbCBhbmQgbHVu QuQkTUOxz8Ner9PbWENUiP UgZVplZtedjedamAV2aR0t LlxwYXJ9 SPECIMEN SOURCE (test a8qmvBWgTLXprGF1SlXyKQ code = 3377) Wjm6jim6ErhKGovXXnRLnd mTOorxJlaf68iKX5qO02GT 4vMCQcSsG5OWYwedH9Pye6 MTDfEQZvnEGaV947k2uei7 xaezNzsXC6sRotPAEgycny NkU8RSpqWXXygaiyJCw2IP lpOBLnpQS9FIUleGQtN8Ja EJYbSG6vonm7ZCW2IZziVK ZiAnH5CUYhhMWqPTRzbObk AYwqo347HLE8KgOhHARlne BuuMnouV0xQvDrYBLBYXJG IFBMRVVSQUwgRkxVSURccG FyfQ== GROSS DESCRIPTION (test p5tytOSnUGBhwAR3IeGhWB code = [id number]) Ifq3mhn9PrgTSikTLpMYmy oHCwpfQnxs31wZC2qA36PJ 2dHYYnUcA6GIEjmnH3Ogp3 XJRjBKNeuQQgD644k9azv3 ehcrZqtDA8lTiuQGQviqmy HbI3CWweJYGlsjzzUEs6QZ cnLZZjeWO8JJCvyADpS3Bn YCErCJ0cpdt7GSQ5IQpyAY KxQnF9MTWdiAAlZNUwmAlh JJinj238GRO2AuOoHCOqje B5LXobPLNiT7CwF0NnNCbn MXG3DWGqLCQoYMIyRASlTY AvKUanjoE1c4asVCEjmYLb SJX8GZxdlJKvFQTpVWLvOU kcQiZROhCjKhN1JCGjULAw QbI1CUf5QDVCRhWsKeKkXa L7NHT6GsujMPu1FBd0CKpX CdY1ViU5JGo2WEAaYGInYL WzOCm2PPDaERdsjIIkEOPt IGUlGZpgRYqbS32bePrydR 9tJoGkMRLFSmJVzJB2axJo XLIozft3kLAWOgzkAHLhPt FpYDEAERLrkXFsHEC9CE1t IGFtYmVyIGZsdWlkOyBwcm DpBQTkRTG9BHB0gJ0klDfk mbQsdzGxY6KhmCIflQ3gjp cTIfbpWEL5yDIeY7MxiWGg cO1bwrO7YLVqIyq1ERDpyF 5mHo9bsEEiqG8fYUTkICI1 XCOyk56pRREoIb6rKOEvb4 fboLsnr8UodZCwCV82JXJu pQXdAVA8XC4vrMpfAOG4 MICROSCOPIC DESCRIPTION u1rhaFNkVTNhxEY7IaReJT (test code = 3371) Idf8oyc2XyaIYjjWGbLWbh iVSmrwQyhn20mLW5jT24YW 3jVVDdWoM4BQDedpK5Lke6 LQBwMMVxqZErV185p1agh2 twlhDsjXM3gUllIDBxdsvw OtO0QDdnVSBgyhyhNRz2YN agBWBuuTS0DHBdkDSmP8Cy YWVrKY9eixg1AMC4QBuuMX XyCmM1INCxgFMeOQUzhIri SXoqs064UMC0VdHeVZKeaf JntQfnjU8oJbNfWEVVYCTo y1SaCYHhZSleOAW6 STATEMENT OF ADEQUACY Satisfactory (test code = 2757) Gross assessment was [facility] performed at (test [facility], = 2777) Department of Pathology, [address] [place] [address] 86[address], Technical component was [facility] performed at ([facility], = 2709) Department of Pathology, [address] [place] [address] 13393, Professional component [facility] was performed at ([facility], code = 2776) Department of Pathology, [address] [place] [address], [facility] 17:07:59Medical Cytology Report Case: [id number] Authorizing Provider: Javon Mcdowell Collected: 09/21/2022 01:31 PM Ordering Location: [address] Received: 09/21/2022 03:30 PM Service Pathologist: Jimena Anton MD Specimen: Pleural Cavity L LEFT PLEURAL FLUID (CYTOSPINS AND CELL BLOCK): - RARE DEGENERATED ATYPICAL MULTINUCLEATED CELL PRESENT (SEE COMMENT) Signing Pathologist Direct Phone Line: [phone] signed by Jimena Anton MD on 09/23/2022 at 5:07 PMThe specimen is hypocellular and has rare benign appearing mesothelial cells admixed with acute inflammation. There is a rare atypical cell with degenerative changes and multiple nuclei. 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 Pleural Cavity L.Received 8 ml tirso fluid; prepared 4 cytospins and cell block(A2) - the cell block was fixed in formalin at 15:43 on 09/21/2022erformed. [facility], Department of Pathology, [address] [place], [place] [address], [facility], [facility] of [facility], [address] [place], [place] [address], [facility], Department of [facility], [address] [place], [place] [address], XWMJA METABOLIC [id number] 08:30:44 Test Item Value Reference Range Interpretation Comments SODIUM (BEAKER) 134 meq/L 136-145 L (test code = 381) POTASSIUM 3.4 meq/L 3.5-5.1 L (BEAKER) (test code = 379) CHLORIDE (BEAKER) 97 meq/L 98-107 L (test code = 382) CO2 (BEAKER) 28 meq/L 22-29 (test code = 355) BLOOD UREA 31 mg/dL 7-21 H NITROGEN (BEAKER) (test code = 354) CREATININE 0.81 mg/dL 0.57-1.25 (BEAKER) (test code = 358) GLUCOSE RANDOM 102 mg/dL 70-105 (BEAKER) (test code = 652) CALCIUM (BEAKER) 8.0 mg/dL 8.4-10.2 L (test code = 697) EGFR (BEAKER) 70 Interpretatio n of eGFR (test code = mL/min/1.73 values Stage De scription 1092) sq m Result G1 Dionne l or high >=90 G2 Mildly decreased 60-89 G3a Mildl y to moderately 45-5 9 G3b Moderately to s everely 30-44 G4 Severl y decreased 15-29 G5 Kidney failure <15Reported eGF R is based on the CKD-EPI 2020 equation that d oes not use a race coefficientEsti mated GFR is not as accur ate as Creatinine Kailyn lobo in predicting glom erular filtration rate . Estimated GFR i s not applicable for dialysis patients Legal Intern ROSA XIAO [id number] 08:30:44 Test Item Value Reference Range Interpretation Comments MAGNESIUM (BEAKER) (test code = 1.8 mg/dL 1.6-2.6 627) Legal Intern ROSA XIAO WCBC W/PLT COUNT & AUTO [id number] 07:47:47 Test Item Value Reference Range Interpretation Comments WHITE BLOOD CELL COUNT (BEAKER) 5.5 K/ L 3.5-10.5 (test code = 775) RED BLOOD CELL COUNT (BEAKER) 2.64 M/ L 3.93-5.22 L (test code = 761) HEMOGLOBIN (BEAKER) (test code = 7.5 GM/DL 11.2-15.7 L 410) HEMATOCRIT (BEAKER) (test code = 23.0 % 34.1-44.9 L 411) MEAN CORPUSCULAR VOLUME (BEAKER) 87 fL 79-95 (test code = 753) MEAN CORPUSCULAR HEMOGLOBIN 28.4 pg 25.6-32.2 (BEAKER) (test code = 751) MEAN CORPUSCULAR HEMOGLOBIN CONC 32.6 GM/DL 32.2-35.5 (BEAKER) (test code = 752) RED CELL DISTRIBUTION WIDTH 20.7 % 11.7-14.4 H (BEAKER) (test code = 412) PLATELET COUNT (BEAKER) (test 170 K/CU MM 150-450 code = 756) MEAN PLATELET VOLUME (BEAKER) 9.3 fL 9.4-12.3 L (test code = 754) NUCLEATED RED BLOOD CELLS 1 /100 WBC 0-0 H (BEAKER) (test code = 413) NEUTROPHILS RELATIVE PERCENT 75 % (BEAKER) (test code = 429) LYMPHOCYTES RELATIVE PERCENT 16 % (BEAKER) (test code = 430) MONOCYTES RELATIVE PERCENT 7 % (BEAKER) (test code = 431) EOSINOPHILS RELATIVE PERCENT 1 % (BEAKER) (test code = 432) BASOPHILS RELATIVE PERCENT 0 % (BEAKER) (test code = 437) NEUTROPHILS ABSOLUTE COUNT 4.16 K/ L 1.56-6.13 (BEAKER) (test code = 670) LYMPHOCYTES ABSOLUTE COUNT 0.90 K/ L 1.18-3.74 L (BEAKER) (test code = 414) MONOCYTES ABSOLUTE COUNT (BEAKER) 0.41 K/ L 0.24-0.36 H (test code = 415) EOSINOPHILS ABSOLUTE COUNT 0.03 K/ L 0.04-0.36 L (BEAKER) (test code = 416) BASOPHILS ABSOLUTE COUNT (BEAKER) 0.01 K/ L 0.01-0.08 (test code = 417) IMMATURE GRANULOCYTES-RELATIVE 0.40 % 0.00-1.00 PERCENT (BEAKER) (test code = 2801) LACTATE DEHYDROGENASE (LDH), BODY [id number] 09:31:07 Test Item Value Reference Range Interpretation Comments LACTATE DEHYDROGENASE FLUID (BEAKER) 67 U/L (test code = 634) Absence of reference range indicates that normals have not been defined.Assay performance has not been validated for this type of specimen.Legal Intern ID - [id number] dehydrogenase (LDH), body [id number] 09:30:45 Test Item Value Reference Range Interpretation Comments LDH, Fluid (test 63 U/L code = 03873-9) ANGE (test code = Absence of reference ANGE) range indicates that normals have not been defined.Assay performance has not been validated for this type of specimen. Legal Intern ID - [id number] [facility] HospitalLACTATE [facility]HYDROGE[facility]SE (LDH), BODY [id number] 09:30:45 Test Item Value Reference Range Interpretation Comments LACTATE DEHYDROGENASE FLUID (BEAKER) 63 U/L (test code = 634) Absence of reference range indicates that normals have not been defined.Assay performance has not been validated for this type of specimen.Legal Intern ID - [id number], body [id number] 09:28:09 Test Item Value Reference Range Interpretation Comments Protein, Fluid (test 1.0 g/dL code = 2881-1) ANGE (test code = Absence of reference ANGE) range indicates that normals have not been defined.Assay performance has not been validated for this type of specimen. Legal Intern ID - [id number] [facility] HospitalPROTE[facility], BODY [id number] 09:28:09 Test Item Value Reference Range Interpretation Comments PROTEIN FLUID (BEAKER) (test code = 1.0 g/dL 579) Absence of reference range indicates that normals have not been defined.Assay performance has not been validated for this type of specimen.Legal Intern ID - [id number], BODY [id number] 09:28:02 Test Item Value Reference Range Interpretation Comments PROTEIN FLUID (BEAKER) (test code = 1.0 g/dL 579) Absence of reference range indicates that normals have not been defined.Assay performance has not been validated for this type of specimen.Legal Intern ID - [id number] METABOLIC [id number] 06:23:48 Test Item Value Reference Range Interpretation Comments SODIUM (BEAKER) 133 meq/L 136-145 L (test code = 381) POTASSIUM 3.4 meq/L 3.5-5.1 L (BEAKER) (test code = 379) CHLORIDE (BEAKER) 96 meq/L 98-107 L (test code = 382) CO2 (BEAKER) 26 meq/L 22-29 (test code = 355) BLOOD UREA 29 mg/dL 7-21 H NITROGEN (BEAKER) (test code = 354) CREATININE 0.89 mg/dL 0.57-1.25 (BEAKER) (test code = 358) GLUCOSE RANDOM 122 mg/dL 70-105 H (BEAKER) (test code = 652) CALCIUM (BEAKER) 7.9 mg/dL 8.4-10.2 L (test code = 697) EGFR (BEAKER) 63 Interpretatio n of eGFR (test code = mL/min/1.73 values Stage De scription 1092) sq m Result G1 Dionne l or high >=90 G2 Mildly decreased 60-89 G3a Mildl y to moderately 45-5 9 G3b Moderately to s everely 30-44 G4 Severl y decreased 15-29 G5 Kidney failure <15Reported eGF R is based on the CKD-EPI 2020 equation that d oes not use a race coefficientEsti mated GFR is not as accur ate as Creatinine Kailyn lobo in predicting glom erular filtration rate . Estimated GFR is not appl icable for dialysis patien ts Legal Intern ID - JEANETH [id number] 06:11:11 Test Item Value Reference Range Interpretation Comments MAGNESIUM (BEAKER) (test code = 1.7 mg/dL 1.6-2.6 627) Legal Intern ID - JEANETH MCBC W/PLT COUNT & AUTO [id number] 05:58:24 Test Item Value Reference Range Interpretation Comments WHITE BLOOD CELL COUNT (BEAKER) 2.7 K/ L 3.5-10.5 L (test code = 775) RED BLOOD CELL COUNT (BEAKER) 2.44 M/ L 3.93-5.22 L (test code = 761) HEMOGLOBIN (BEAKER) (test code = 7.1 GM/DL 11.2-15.7 L 410) HEMATOCRIT (BEAKER) (test code = 21.5 % 34.1-44.9 L 411) MEAN CORPUSCULAR VOLUME (BEAKER) 88 fL 79-95 (test code = 753) MEAN CORPUSCULAR HEMOGLOBIN 29.1 pg 25.6-32.2 (BEAKER) (test code = 751) MEAN CORPUSCULAR HEMOGLOBIN CONC 33.0 GM/DL 32.2-35.5 (BEAKER) (test code = 752) RED CELL DISTRIBUTION WIDTH 20.5 % 11.7-14.4 H (BEAKER) (test code = 412) PLATELET COUNT (BEAKER) (test 122 K/CU MM 150-450 L code = 756) MEAN PLATELET VOLUME (BEAKER) 10.0 fL 9.4-12.3 (test code = 754) NUCLEATED RED BLOOD CELLS 0 /100 WBC 0-0 (BEAKER) (test code = 413) NEUTROPHILS RELATIVE PERCENT 65 % (BEAKER) (test code = 429) LYMPHOCYTES RELATIVE PERCENT 24 % (BEAKER) (test code = 430) MONOCYTES RELATIVE PERCENT 11 % (BEAKER) (test code = 431) EOSINOPHILS RELATIVE PERCENT 0 % (BEAKER) (test code = 432) BASOPHILS RELATIVE PERCENT 0 % (BEAKER) (test code = 437) NEUTROPHILS ABSOLUTE COUNT 1.75 K/ L 1.56-6.13 (BEAKER) (test code = 670) LYMPHOCYTES ABSOLUTE COUNT 0.64 K/ L 1.18-3.74 L (BEAKER) (test code = 414) MONOCYTES ABSOLUTE COUNT (BEAKER) 0.30 K/ L 0.24-0.36 (test code = 415) EOSINOPHILS ABSOLUTE COUNT 0.00 K/ L 0.04-0.36 L (BEAKER) (test code = 416) BASOPHILS ABSOLUTE COUNT (BEAKER) 0.00 K/ L 0.01-0.08 L (test code = 417) IMMATURE GRANULOCYTES-RELATIVE 0.40 % 0.00-1.00 PERCENT (BEAKER) (test code = 2801) Prepare [id number] 23:54:00 Test Item Value Reference Range Interpretation Comments CROSSMATCH (test code = 2264) COMPATIBLE Unit ABO (test code = A Pos 8119916) UNIT NUMBER (test code = [id number] 934-0) Status (test code = 9447505) [facility] Blood [facility] Product (test code RED BLOOD CELLS = 2263) PRODUCT CODE (test code = R5555D00 933-2) [facility] HospitalBODY FLUID CELL COUNT WITH [id number] 16:16:34 Test Item Value Reference Range Interpretation Comments APPEARANCE FLUID Clear Clear (BEAKER) (test code = 510) COLOR FLUID (BEAKER) Yellow Colorless, Straw A (test code = 511) RBC FLUID (BEAKER) 395 /cu mm See_Comment H [Automat ed message] (test code = 513) The system which generated this result transmit lavon reference range : <=1. The refere nce range was not u sed to interpret th is result as normal/abnormal . ADJUSTED WBC FLUID 160 /cu mm See_Comment H [Automat ed message] (BEAKER) (test code The syst em which = 0105) generated this result transmit lavon reference range : <=5. The refere nce range was not u sed to interpret th is result as normal/abnormal . LINING CELLS 0 /cu mm See_Comment [Automated mes lillian] (BEAKER) (test code The syst em which = 1590) generated this result transmit lavon reference range : <=1. The refere nce range was not u sed to interpret th is result as normal/abnormal . NEUTROPHILS FLUID 6 % (BEAKER) (test code = 1656) LYMPHS FLUID 89 % (BEAKER) (test code = 488) MONO/MACROPHAGE 5 % FLUID (BEAKER) (test code = 489) EOSINOPHILS FLUID 0 % (BEAKER) (test code = 491) BASO FLUID (BEAKER) 0 % (test code = 492) CONTAINER BODY FLUID Sterile Vial (BEAKER) (test code = 2873) Body fluid cell count with [id number] 16:13:08 Test Item Value Reference Range Interpretation Comments Appearance (test code Hazy Clear A = 9335-1) Color (test code = Laramie Colorless, Straw A 6824-7) RBCs (test code = 09742 See_Comment H [Automate d 34718-3) message] The system which generated this result transmit lavon reference range : <=1 /cu mm. The reference range was not used to interpret this result as normal/abnormal . Adjusted WBC Count 121 See_Comment H [Automat ed (test code = 27884-6) messag e] The system which generated this result transmit lavon reference range : <=5 /cu mm. The reference range was not used to interpret this result as normal/abnormal . Lining Cells (test 0 See_Comment [Automat ed code = 02043-8) message] The system which generated this result transmit lavon reference range : <=1 /cu mm. The reference range was not used to interpret this result as normal/abnormal . % Segs (test code = 17 % 63691-5) % Lymphs (test code = 68 % 95095-1) % Monos (test code = 15 % 14709-3) % Eos (test code = 0 % 95860-1) % Baso (test code = 0 % 30440-6) Container Body Fluid Sterile Vial (test code = 2873) Lab Interpretation Abnormal (test code = 56980-7) [facility] WITH [id number] 16:13:08 Test Item Value Reference Range Interpretation Comments APPEARANCE FLUID Hazy Clear A (BEAKER) (test code = 510) COLOR FLUID (BEAKER) Laramie Colorless, Straw A (test code = 511) RBC FLUID (BEAKER) 44585 /cu mm See_Comment H [Automat ed message] (test code = 513) The system which generated this result transmit lavon reference range : <=1. The refere nce range was not u sed to interpret th is result as normal/abnormal . ADJUSTED WBC FLUID 121 /cu mm See_Comment H [Automat ed message] (BEAKER) (test code The syst em which = 1691) generated this result transmit lavon reference range : <=5. The refere nce range was not u sed to interpret th is result as normal/abnormal . LINING CELLS 0 /cu mm See_Comment [Automated mes lillian] (BEAKER) (test code The syst em which = 1590) generated this result transmit lavon reference range : <=1. The refere nce range was not u sed to interpret th is result as normal/abnormal . NEUTROPHILS FLUID 17 % (BEAKER) (test code = 1656) LYMPHS FLUID 68 % (BEAKER) (test code = 488) MONO/MACROPHAGE 15 % FLUID (BEAKER) (test code = 489) EOSINOPHILS FLUID 0 % (BEAKER) (test code = 491) BASO FLUID (BEAKER) 0 % (test code = 492) CONTAINER BODY FLUID Sterile Vial (BEAKER) (test code = 2873) PROTEIN, [id number] 14:19:38 Test Item Value Reference Range Interpretation Comments TOTAL PROTEIN (BEAKER) (test code = 6.2 gm/dL 6.0-8.3 770) Legal Intern ID - MITCHLACTATE DEHYDROGENASE (LDH)2022-09-21 14:19:38 Test Item Value Reference Range Interpretation Comments LACTATE DEHYDROGENASE (BEAKER) (test 460 U/L 125-220 H code = 635) Legal Intern ID - MITCHRAD, CHEST, 1 VIEW, NON [id number] 13:35:00Reason for exam:->SobShould this be performed at the bedside?->Yes [facility] : 1935 Sex: FFINAL REPORT RAD, CHEST, 1 VIEW, NON DEPT INDICATION: Sob COMPARISON: 09/19/2022 TECHNIQUE: Portable frontal view of the chest. FINDINGS: Support Lines and Devices: Stable. Lungs and pleura: Unchanged airspace and pleural opacities. No pneumothorax identified. Heart and mediastinum: Stable contours. Stable surgical changes. Additional findings: Scattered atherosclerotic vascular calcifications. IMPRESSION: 1.Bilateral airspace and interstitial opacities, similar to prior exam, which may represent atelectasis, pneumonia or pulmonary edema.2.Right retrocardiac opacity, representing singly or in combination pneumonia, atelectasis, or pleural effusion. Signed: Horace Richards Verified Date/Time: 09/21/2022 13:35:47 Reading Location: [address] Reading Room HIGH SENSITIVITY TROPONIN [id number] 12:53:16 Test Item Value Reference Range Interpretation Comments HIGH SENSITIVITY 672 pg/ml See_Comment HH [Automated message] TROPONIN I (test code The stem which = [id number]) generated this result transmitted ref erence range: <=17. Th e reference range was not used to int erpret this result as normal/abnormal . Legal Intern ID - MITCHThe TRIAGE SPECIALIST STAT High Sensitivity Troponin-I results should be used in conjunction with other diagnostic information such as ECG, clinical observations and information, and patientsymptoms to aid in the diagnosis of [place]. BASIC METABOLIC [id number] 12:38:44 Test Item Value Reference Range Interpretation Comments SODIUM (BEAKER) 131 meq/L 136-145 L (test code = 381) POTASSIUM 3.5 meq/L 3.5-5.1 (BEAKER) (test code = 379) CHLORIDE (BEAKER) 95 meq/L 98-107 L (test code = 382) CO2 (BEAKER) 24 meq/L 22-29 (test code = 355) BLOOD UREA 25 mg/dL 7-21 H NITROGEN (BEAKER) (test code = 354) CREATININE 0.95 mg/dL 0.57-1.25 (BEAKER) (test code = 358) GLUCOSE RANDOM 187 mg/dL 70-105 H (BEAKER) (test code = 652) CALCIUM (BEAKER) 8.3 mg/dL 8.4-10.2 L (test code = 697) EGFR (BEAKER) 58 Interpretatio n of eGFR (test code = mL/min/1.73 values Stage De scription 1092) sq m Result G1 Dionne l or high >=90 G2 Mildly decreased 60-89 G3a Mildl y to moderately 45-5 9 G3b Moderately to s everely 30-44 G4 Severl y decreased 15-29 G5 Kidney failure <15Reported eGF R is based on the CKD-EPI 2020 equation that d oes not use a race coefficientEsti mated GFR is not as accur ate as Creatinine Kailyn lobo in predicting glom erular filtration rate . Estimated GFR is not appl icable for dialysis patien ts Legal Intern ID - MITCHSpecimen slightly ictericCBC W/PLT COUNT & AUTO [id number] 11:51:57 Test Item Value Reference Range Interpretation Comments WHITE BLOOD CELL COUNT (BEAKER) 4.5 K/ L 3.5-10.5 (test code = 775) RED BLOOD CELL COUNT (BEAKER) 2.90 M/ L 3.93-5.22 L (test code = 761) HEMOGLOBIN (BEAKER) (test code = 8.2 GM/DL 11.2-15.7 L 410) HEMATOCRIT (BEAKER) (test code = 25.9 % 34.1-44.9 L 411) MEAN CORPUSCULAR VOLUME (BEAKER) 89 fL 79-95 (test code = 753) MEAN CORPUSCULAR HEMOGLOBIN 28.3 pg 25.6-32.2 (BEAKER) (test code = 751) MEAN CORPUSCULAR HEMOGLOBIN CONC 31.7 GM/DL 32.2-35.5 L (BEAKER) (test code = 752) RED CELL DISTRIBUTION WIDTH 20.6 % 11.7-14.4 H (BEAKER) (test code = 412) PLATELET COUNT (BEAKER) (test 137 K/CU MM 150-450 L code = 756) MEAN PLATELET VOLUME (BEAKER) 9.5 fL 9.4-12.3 (test code = 754) NUCLEATED RED BLOOD CELLS 0 /100 WBC 0-0 (BEAKER) (test code = 413) NEUTROPHILS RELATIVE PERCENT 60 % (BEAKER) (test code = 429) LYMPHOCYTES RELATIVE PERCENT 29 % (BEAKER) (test code = 430) MONOCYTES RELATIVE PERCENT 10 % (BEAKER) (test code = 431) EOSINOPHILS RELATIVE PERCENT 1 % (BEAKER) (test code = 432) BASOPHILS RELATIVE PERCENT 0 % (BEAKER) (test code = 437) NEUTROPHILS ABSOLUTE COUNT 2.72 K/ L 1.56-6.13 (BEAKER) (test code = 670) LYMPHOCYTES ABSOLUTE COUNT 1.29 K/ L 1.18-3.74 (BEAKER) (test code = 414) MONOCYTES ABSOLUTE COUNT (BEAKER) 0.44 K/ L 0.24-0.36 H (test code = 415) EOSINOPHILS ABSOLUTE COUNT 0.03 K/ L 0.04-0.36 L (BEAKER) (test code = 416) BASOPHILS ABSOLUTE COUNT (BEAKER) 0.01 K/ L 0.01-0.08 (test code = 417) IMMATURE GRANULOCYTES-RELATIVE 0.40 % 0.00-1.00 PERCENT (BEAKER) (test code = 2801) Blood gas, [id number] 11:45:06 Test Item Value Reference Range Interpretation Comments pH, Arterial (test code 7.49 7.35-7.45 H = 2744-1) pCO2, Arterial (test 35 See_Comment [Autom ated message] code = 2018-8) The system [employer] generated this result transmit lavon reference range : 35 - 45 mm Hg. The reference range was not used to interpret this result as normal/abnormal . pO2, Arterial (test 133 See_Comment H [Automa lavon message] code = 2703-7) The system [employer] generated this result transmit lavon reference range : 80 - 90 mm Hg. The reference range was not used to interpret this result as normal/abnormal . O2 Sat, Arterial (test 98.9 % 96.0-97.0 H code = 2708-6) HCO3, Arterial (test 26 mmol/L 21-29 code = 1960-4) Base Excess, Arterial 2.2 mmol/L -2.0-3.0 (test code = 1925-7) Patient Temperature 36.6 (test code = 8310-5) FIO2 (test code = 1819) 60 Lab Interpretation Abnormal (test code = 52494-6) [facility], [id number] 11:45:06 Test Item Value Reference Range Interpretation Comments PH ARTERIAL (BEAKER) (test code = 7.49 7.35-7.45 H 383) PCO2 ARTERIAL (BEAKER) (test code 35 mm Hg 35-45 = 384) PO2 ARTERIAL (BEAKER) (test code = 133 mm Hg 80-90 H 385) O2 SATURATION ARTERIAL (BEAKER) 98.9 % 96.0-97.0 H (test code = 386) HCO3 ARTERIAL (BEAKER) (test code 26 mmol/L -29 = 388) BASE EXCESS ARTERIAL (BEAKER) 2.2 mmol/L -2.0-3.0 (test code = 387) PATIENT TEMPERATURE (BEAKER) (test 36.6 code = 1818) FIO2 (BEAKER) (test code = 1819) 60.0 BASIC METABOLIC [id number] 06:07:42 Test Item Value Reference Range Interpretation Comments SODIUM (BEAKER) 132 meq/L 136-145 L (test code = 381) POTASSIUM 3.7 meq/L 3.5-5.1 (BEAKER) (test code = 379) CHLORIDE (BEAKER) 98 meq/L 98-107 (test code = 382) CO2 (BEAKER) 23 meq/L 22-29 (test code = 355) BLOOD UREA 24 mg/dL 7-21 H NITROGEN (BEAKER) (test code = 354) CREATININE 0.97 mg/dL 0.57-1.25 (BEAKER) (test code = 358) GLUCOSE RANDOM 105 mg/dL 70-105 (BEAKER) (test code = 652) CALCIUM (BEAKER) 8.4 mg/dL 8.4-10.2 (test code = 697) EGFR (BEAKER) 57 Interpretatio n of eGFR (test code = mL/min/1.73 values Stage De scription 1092) sq m Result G1 Dionne l or high >=90 G2 Mildly decreased 60-89 G3a Mildl y to moderately 45-5 9 G3b Moderately to s everely 30-44 G4 Severl y decreased 15-29 G5 Kidney failure <15Reported eGF R is based on the CKD-EPI 2020 equation that d oes not use a race coefficientEsti mated GFR is not as accur ate as Creatinine Kailyn diamond in predicting glom erular filtration rate . Estimated GFR is not appl icable for dialysis patien ts Legal Intern ID - ADMINSpecimen slightly ictericCBC W/PLT COUNT & AUTO [id number] 04:50:05 Test Item Value Reference Range Interpretation Comments WHITE BLOOD CELL COUNT (BEAKER) 3.4 K/ L 3.5-10.5 L (test code = 775) RED BLOOD CELL COUNT (BEAKER) 2.91 M/ L 3.93-5.22 L (test code = 761) HEMOGLOBIN (BEAKER) (test code = 8.4 GM/DL 11.2-15.7 L 410) HEMATOCRIT (BEAKER) (test code = 26.0 % 34.1-44.9 L 411) MEAN CORPUSCULAR VOLUME (BEAKER) 89 fL 79-95 (test code = 753) MEAN CORPUSCULAR HEMOGLOBIN 28.9 pg 25.6-32.2 (BEAKER) (test code = 751) MEAN CORPUSCULAR HEMOGLOBIN CONC 32.3 GM/DL 32.2-35.5 (BEAKER) (test code = 752) RED CELL DISTRIBUTION WIDTH 20.5 % 11.7-14.4 H (BEAKER) (test code = 412) PLATELET COUNT (BEAKER) (test 106 K/CU MM 150-450 L code = 756) MEAN PLATELET VOLUME (BEAKER) 9.7 fL 9.4-12.3 (test code = 754) NUCLEATED RED BLOOD CELLS 1 /100 WBC 0-0 H (BEAKER) (test code = 413) NEUTROPHILS RELATIVE PERCENT 59 % (BEAKER) (test code = 429) LYMPHOCYTES RELATIVE PERCENT 27 % (BEAKER) (test code = 430) MONOCYTES RELATIVE PERCENT 12 % (BEAKER) (test code = 431) EOSINOPHILS RELATIVE PERCENT 2 % (BEAKER) (test code = 432) BASOPHILS RELATIVE PERCENT 0 % (BEAKER) (test code = 437) NEUTROPHILS ABSOLUTE COUNT 1.99 K/ L 1.56-6.13 (BEAKER) (test code = 670) LYMPHOCYTES ABSOLUTE COUNT 0.92 K/ L 1.18-3.74 L (BEAKER) (test code = 414) MONOCYTES ABSOLUTE COUNT (BEAKER) 0.40 K/ L 0.24-0.36 H (test code = 415) EOSINOPHILS ABSOLUTE COUNT 0.06 K/ L 0.04-0.36 (BEAKER) (test code = 416) BASOPHILS ABSOLUTE COUNT (BEAKER) 0.01 K/ L 0.01-0.08 (test code = 417) IMMATURE GRANULOCYTES-RELATIVE 0.30 % 0.00-1.00 PERCENT (BEAKER) (test code = 2801) HIGH SENSITIVITY TROPONIN [id number] 17:55:26 Test Item Value Reference Range Interpretation Comments HIGH SENSITIVITY 941 pg/ml See_Comment HH [Automated message] TROPONIN I (test code The sy stem which = [id number]) generated this result transmitted ref erence range: <=17. Th e reference range was not used to int erpret this result as normal/abnormal . Legal Intern ID - ADMINThe TRIAGE SPECIALIST STAT High Sensitivity Troponin-I results should be used in conjunction with other diagnostic information such as ECG, clinical observations and information, and patientsymptoms to aid in the diagnosis of [place]. [id number] 14:38:16 Test Item Value Reference Range Interpretation Comments FERRITIN (BEAKER) (test code = 158.50 ng/mL 5.00-275.00 361) Legal Intern ID - ADMINHIGH SENSITIVITY TROPONIN [id number] 12:29:24 Test Item Value Reference Range Interpretation Comments HIGH SENSITIVITY 1054 pg/ml See_Comment HH [Automated message] TROPONIN I (test code The sy stem which = [id number]) generated this result transmitted ref erence range: <=17. Th e reference range was not used to int erpret this result as normal/abnormal . Legal Intern ID - AMANDA POWERShe TRIAGE SPECIALIST STAT High Sensitivity Troponin-I results should be used in conjunction with other diagnostic information such as ECG, clinical observations and information, and patient symptoms to aid in the diagnosis of [place].IRON, TIBC, % SAT. (WITHOUT FERRITIN)2022-09-20 12:27:11 Test Item Value Reference Range Interpretation Comments IRON (BEAKER) (test code = 547) 48.0 ug/dL 40.0-160.0 TOTAL IRON BINDING CAPACITY 299 ug/dL 250-450 (BEAKER) (test code = 769) IRON % SATURATION (2) (BEAKER) 16 % 20-55 L (test code = 2590) Legal Intern ID Verenice PATEL [id number] 12:26:14 Test Item Value Reference Range Interpretation Comments MAGNESIUM (BEAKER) (test code = 1.9 mg/dL 1.6-2.6 627) Legal Intern ID Verenice PATEL DBASIC METABOLIC [id number] 12:26:14 Test Item Value Reference Range Interpretation Comments SODIUM (BEAKER) 131 meq/L 136-145 L (test code = 381) POTASSIUM 3.7 meq/L 3.5-5.1 (BEAKER) (test code = 379) CHLORIDE (BEAKER) 96 meq/L 98-107 L (test code = 382) CO2 (BEAKER) 26 meq/L 22-29 (test code = 355) BLOOD UREA 23 mg/dL 7-21 H NITROGEN (BEAKER) (test code = 354) CREATININE 1.02 mg/dL 0.57-1.25 (BEAKER) (test code = 358) GLUCOSE RANDOM 122 mg/dL 70-105 H (BEAKER) (test code = 652) CALCIUM (BEAKER) 8.3 mg/dL 8.4-10.2 L (test code = 697) EGFR (BEAKER) 53 Interpretatio n of eGFR (test code = mL/min/1.73 values Stage De scription 1092) sq m Result G1 Dionne l or high >=90 G2 Mildly decreased 60-89 G3a Mildl y to moderately 45-5 9 G3b Moderately to s everely 30-44 G4 Severl y decreased 15-29 G5 Kidney failure <15Reported eGF R is based on the CKD-EPI 2020 equation that d oes not use a race coefficientEsti mated GFR is not as accur ate as Creatinine Kailyn diamond in predicting glom erular filtration rate . Estimated GFR is not appl icable for dialysis patien ts Legal Intern ID Verenice PATEL DSpecimen slightly ictericLIPID [id number] 12:26:14 Test Item Value Reference Range Interpretation Comments TRIGLYCERIDES (BEAKER) (test code = 110 mg/dL 540) CHOLESTEROL (BEAKER) (test code = 114 mg/dL 631) HDL CHOLESTEROL (BEAKER) (test code 58 mg/dL = 976) LDL CHOLESTEROL CALCULATED (BEAKER) 34 mg/dL (test code = 633) Triglyceride Reference Range: Low Risk <150 Borderline 150-199 High Risk 200- 499 Very High Risk >=500Cholesterol Reference Range: Low Risk <200 Borderline 200-239 High Risk >240HDL Cholesterol Reference Range: Low Risk >=60 High Risk <40LDL Cholesterol Reference Range: Optimal <100 Near Optimal 100-129 Borderline 130-159 High 160-189 Very High >=190 Legal Intern ROSA - AMANDA DSpecimen slightly ictericCBC W/PLT COUNT & AUTO DIFFERENTIAL 2022-09-20 12:01:46 Test Item Value Reference Range Interpretation Comments WHITE BLOOD CELL COUNT (BEAKER) 3.5 K/ L 3.5-10.5 (test code = 775) RED BLOOD CELL COUNT (BEAKER) 2.74 M/ L 3.93-5.22 L (test code = 761) HEMOGLOBIN (BEAKER) (test code = 7.8 GM/DL 11.2-15.7 L 410) HEMATOCRIT (BEAKER) (test code = 24.6 % 34.1-44.9 L 411) MEAN CORPUSCULAR VOLUME (BEAKER) 90 fL 79-95 (test code = 753) MEAN CORPUSCULAR HEMOGLOBIN 28.5 pg 25.6-32.2 (BEAKER) (test code = 751) MEAN CORPUSCULAR HEMOGLOBIN CONC 31.7 GM/DL 32.2-35.5 L (BEAKER) (test code = 752) RED CELL DISTRIBUTION WIDTH 20.4 % 11.7-14.4 H (BEAKER) (test code = 412) PLATELET COUNT (BEAKER) (test 101 K/CU MM 150-450 L code = 756) MEAN PLATELET VOLUME (BEAKER) 9.3 fL 9.4-12.3 L (test code = 754) NUCLEATED RED BLOOD CELLS 1 /100 WBC 0-0 H (BEAKER) (test code = 413) NEUTROPHILS RELATIVE PERCENT 76 % (BEAKER) (test code = 429) LYMPHOCYTES RELATIVE PERCENT 15 % (BEAKER) (test code = 430) MONOCYTES RELATIVE PERCENT 8 % (BEAKER) (test code = 431) EOSINOPHILS RELATIVE PERCENT 1 % (BEAKER) (test code = 432) BASOPHILS RELATIVE PERCENT 0 % (BEAKER) (test code = 437) NEUTROPHILS ABSOLUTE COUNT 2.67 K/ L 1.56-6.13 (BEAKER) (test code = 670) LYMPHOCYTES ABSOLUTE COUNT 0.54 K/ L 1.18-3.74 L (BEAKER) (test code = 414) MONOCYTES ABSOLUTE COUNT (BEAKER) 0.28 K/ L 0.24-0.36 (test code = 415) EOSINOPHILS ABSOLUTE COUNT 0.02 K/ L 0.04-0.36 L (BEAKER) (test code = 416) BASOPHILS ABSOLUTE COUNT (BEAKER) 0.00 K/ L 0.01-0.08 L (test code = 417) IMMATURE GRANULOCYTES-RELATIVE 0.60 % 0.00-1.00 PERCENT (BEAKER) (test code = 2801) ECHO W CONTRAST & [id number] 11:00:03Ejection FractionSLE ECHO HEARTLAB MKCKESSON [facility] CenterHEMO[facility] [id number] 10:48:05 Test Item Value Reference Range Interpretation Comments HEMOGLOBIN A1C 4.7 % See_Comment [Automated m essage] ELECTROPHORESIS (BEAKER) The system which (test code = 3811) generated this result transmitted ref erence range: <=5.6%. The reference range was not used to int erpret this result as normal/abnormal . "The A1c is measured using a NGSP-certified method. HbA1c value equal to or greater than 6.5% as thediagnosis cutoff for diabetes. An HbA1c value of 5.7- 6.4% indicates increased risk for diabetes (prediabetes)."Legal Intern ID - ADMOperator ID - ADMUrinalysis w/ [id number] 08:20:59 Test Item Value Reference Range Interpretation Comments Color, UA (test code Yellow = 5778-6) Clarity, UA (test Slightly Cloudy code = 5767-9) Specific Banks, UA 1.020 1.001-1.035 (test code = 5811-5) pH, UA (test code = 6.5 5.0-8.0 5803-2) Protein, UA (test 10 mg/dL Negative A code = 96257-2) Glucose, UA (test Negative Negative code = 365) Ketones, UA (test Negative Negative code = 2514-8) Bilirubin, UA (test Negative Negative code = 29095-8) Blood, UA (test code Large Negative A = 47020-1) Nitrite, UA (test Negative Negative code = 5802-4) Leukocytes, UA (test Large Negative A code = 5799-2) Urobilinogen, UA 0.2 0.2-1.0 (test code = 41575-8) RBC, UA (test code = >182 See_Comment [Autom ated 77550-8) message] The system which generated this result transmit lavon reference range : /HPF. The reference range was not used to interpret this result as normal/abnormal . WBC, UA (test code = 3 See_Comment [Autom ated 5821-4) message] The system which generated this result transmit lavon reference range : /HPF. The reference range was not used to interpret this result as normal/abnormal . Mucus (test code = Rare 8247-9) Hyaline Casts, UA 8 See_Comment [Automate d (test code = 72457-3) messag e] The system which generated this result transmit lavon reference range : /LPF. The reference range was not used to interpret this result as normal/abnormal . Specimen Source (test Urine, Clean code = 2795) Catch ANGE (test code = ANGE) Legal Intern ID - [auto]Legal Intern ID - tech Lab Interpretation Abnormal (test code = 09066-1) [facility]/ [id number] 08:20:59 Test Item Value Reference Range Interpretation Comments COLOR (BEAKER) (test code Yellow = 470) CLARITY (BEAKER) (test Slightly Cloudy code = 469) SPECIFIC GRAVITY UA 1.020 1.001-1.035 (BEAKER) (test code = 468) PH UA (BEAKER) (test code 6.5 5.0-8.0 = 467) PROTEIN UA (BEAKER) (test 10 mg/dL Negative A code = 464) GLUCOSE UA (BEAKER) (test Negative Negative code = 365) KETONES UA (BEAKER) (test Negative Negative code = 371) BILIRUBIN UA (BEAKER) Negative Negative (test code = 462) BLOOD UA (BEAKER) (test Large Negative A code = 461) NITRITE UA (BEAKER) (test Negative Negative code = 465) LEUKOCYTE ESTERASE UA Large Negative A (BEAKER) (test code = 466) UROBILINOGEN UA (BEAKER) 0.2 0.2-1.0 (test code = 463) RBC UA (BEAKER) (test code > /HPF = 519) WBC UA (BEAKER) (test code 3 /HPF = 520) MUCUS (BEAKER) (test code Rare = 1574) HYALINE CASTS (BEAKER) 8 /LPF (test code = 514) SOURCE(BEAKER) (test code Urine, Clean Catch = 2795) Legal Intern ID - [auto]Legal Intern ID - techRAD, CHEST, 1 VIEW, NON [id number] 03:36:00Reason for exam:->pleural effusionsShould this be performed at the bedside?->Yes[facility] : 1935 Sex: FFINAL REPORT History: pleural effusions. Comparison: 08/18/2022 Findings: Asingle view of the chest is submitted. The cardiac silhouette is enlarged. There is atherosclerotic calcification of the elongated aorta. Central pulmonary vascular engorgement and bilateral interstitial and airspace opacities are centered on the perihilar lungs and suggest pulmonary edema. Superimposed pneumonitis should be excluded clinically. There are small to moderate bilateral pleural effusions. There is no pneumothorax or acute bony abnormality. A left IJ chest port is in place. Signed: Reji Bautista MDReport Verified Date/Time: 09/20/2022 03:36:43 HIGH SENSITIVITY TROPONIN [id number] 22:45:53 Test Item Value Reference Range Interpretation Comments HIGH SENSITIVITY 1563 pg/ml See_Comment HH [Automated message] TROPONIN I (test code The sy stem which = [id number]) generated this result transmitted ref erence range: <=17. Th e reference range was not used to int erpret this result as normal/abnormal . Legal Intern ID - BSThe TRIAGE SPECIALIST STAT High Sensitivity Troponin-I results should be used in conjunctionwith other diagnostic information such as ECG, clinical observations and information, and patient symptoms to aid in the diagnosis of [place].B-TYPE NATRIURETIC FACTOR (BNP)2022-09-19 22:44:11 Test Item Value Reference Range Interpretation Comments B-TYPE NATRIURETIC PEPTIDE 1572 pg/mL 0-100 H (BEAKER) (test code = 700) Legal Intern ID - BSCOMPREHENSIVE METABOLIC [id number] 22:37:49 Test Item Value Reference Range Interpretation Comments TOTAL PROTEIN 5.8 gm/dL 6.0-8.3 L (BEAKER) (test code = 770) ALBUMIN (BEAKER) 3.2 g/dL 3.5-5.0 L (test code = 1145) ALKALINE 65 U/L 40-150 PHOSPHATASE (BEAKER) (test code = 346) BILIRUBIN TOTAL 1.5 mg/dL 0.2-1.2 H (BEAKER) (test code = 377) SODIUM (BEAKER) 131 meq/L 136-145 L (test code = 381) POTASSIUM (BEAKER) 4.1 meq/L 3.5-5.1 (test code = 379) CHLORIDE (BEAKER) 96 meq/L 98-107 L (test code = 382) CO2 (BEAKER) (test 25 meq/L 22-29 code = 355) BLOOD UREA 25 mg/dL 7-21 H NITROGEN (BEAKER) (test code = 354) CREATININE 1.09 mg/dL 0.57-1.25 (BEAKER) (test code = 358) GLUCOSE RANDOM 106 mg/dL 70-105 H (BEAKER) (test code = 652) CALCIUM (BEAKER) 8.2 mg/dL 8.4-10.2 L (test code = 697) AST (SGOT) 28 U/L 5-34 (BEAKER) (test code = 353) ALT (SGPT) 12 U/L 6-55 (BEAKER) (test code = 347) EGFR (BEAKER) 49 Interpretatio n of eGFR (test code = 1092) mL/min/1.[address] age Description sq m Result G1 Dionne l or high >=90 G2 Mildly decreased 60-89 G3a Mildl y to moderately 45-5 9 G3b Moderately to s everely 30-44 G4 Severl y decreased 15-29 G5 Kidney failure <15Reported eGF R is based on the CKD-EPI 2020 equation that d oes not use a race coefficientEsti mated GFR is not as accur ate as Creatinine Kailyn lobo in predicting glom erular filtration rate . Estimated GFR is not appl icable for dialysis patien ts Legal Intern ID - BSLACTIC ACID, [id number] 22:28:48 Test Item Value Reference Range Interpretation Comments LACTATE BLOOD VENOUS (2) (BEAKER) 1.19 mmol/L 0.50-2.20 (test code = 2872) Legal Intern ID - BSCBC W/PLT COUNT & AUTO [id number] 22:22:58 Test Item Value Reference Range Interpretation Comments WHITE BLOOD CELL COUNT (BEAKER) 3.6 K/ L 3.5-10.5 (test code = 775) RED BLOOD CELL COUNT (BEAKER) 2.29 M/ L 3.93-5.22 L (test code = 761) HEMOGLOBIN (BEAKER) (test code = 6.4 GM/DL 11.2-15.7 L 410) HEMATOCRIT (BEAKER) (test code = 20.7 % 34.1-44.9 L 411) MEAN CORPUSCULAR VOLUME (BEAKER) 90 fL 79-95 (test code = 753) MEAN CORPUSCULAR HEMOGLOBIN 27.9 pg 25.6-32.2 (BEAKER) (test code = 751) MEAN CORPUSCULAR HEMOGLOBIN CONC 30.9 GM/DL 32.2-35.5 L (BEAKER) (test code = 752) RED CELL DISTRIBUTION WIDTH 21.7 % 11.7-14.4 H (BEAKER) (test code = 412) PLATELET COUNT (BEAKER) (test 106 K/CU MM 150-450 L code = 756) MEAN PLATELET VOLUME (BEAKER) 9.6 fL 9.4-12.3 (test code = 754) NUCLEATED RED BLOOD CELLS 1 /100 WBC 0-0 H (BEAKER) (test code = 413) NEUTROPHILS RELATIVE PERCENT 58 % (BEAKER) (test code = 429) LYMPHOCYTES RELATIVE PERCENT 29 % (BEAKER) (test code = 430) MONOCYTES RELATIVE PERCENT 11 % (BEAKER) (test code = 431) EOSINOPHILS RELATIVE PERCENT 1 % (BEAKER) (test code = 432) BASOPHILS RELATIVE PERCENT 0 % (BEAKER) (test code = 437) NEUTROPHILS ABSOLUTE COUNT 2.11 K/ L 1.56-6.13 (BEAKER) (test code = 670) LYMPHOCYTES ABSOLUTE COUNT 1.04 K/ L 1.18-3.74 L (BEAKER) (test code = 414) MONOCYTES ABSOLUTE COUNT (BEAKER) 0.41 K/ L 0.24-0.36 H (test code = 415) EOSINOPHILS ABSOLUTE COUNT 0.02 K/ L 0.04-0.36 L (BEAKER) (test code = 416) BASOPHILS ABSOLUTE COUNT (BEAKER) 0.01 K/ L 0.01-0.08 (test code = 417) IMMATURE GRANULOCYTES-RELATIVE 0.60 % 0.00-1.00 PERCENT (BEAKER) (test code = 2801) Prepare [id number] 23:54:00 Test Item Value Reference Range Interpretation Comments Unit ABO (test code = O Pos 8336286) UNIT NUMBER (test code = [id number] 934-0) Status (test code = 3244500) TX_TIMEINCHART Blood Bank Product (test code RED BLOOD CELLS = 2263) PRODUCT CODE (test code = Z1953F65 933-2) CROSSMATCH (test code = 2264) COMPATIBLE [facility] HospitalPrepare [id number] 23:54:00 Test Item Value Reference Range Interpretation Comments Unit ABO (test code = O Pos 8204676) UNIT NUMBER (test code = [id number] 934-0) Status (test code = 5542708) TX_TIMEINCHART Blood Bank Product (test code RED BLOOD CELLS = 2263) PRODUCT CODE (test code = D9023X37 933-2) CROSSMATCH (test code = 2264) COMPATIBLE [facility] HospitalANG, CV ACCESS, [id number] 07:43:00 [facility] : 1935 Sex: FFINAL REPORT Right internal jugular chest port insertion History: Ovarian cancer. Modality: Sonography and fluoroscopy. Sedation: Moderate sedation was administered. 1 mg of Versed and 50 mcg of fentanyl IV was used for moderate sedation monitored under my direction. Totalintra-service time of sedation was 30 minutes. The patient's vital signs were monitored throughout the procedure and recorded in the patient's medical record by the nurse. Grinder Gear: Lemuel Montilla MD Copper Min[employer] Blasting: None. Approach: Right internal jugular vein Estimated [...] needle into the right atrium. A 4 Belgian micropuncture sheath was placed and a 0.035 wire was advanced into the IVC. A subcutaneous tunnel and pocket were created in the right anterior chest wall by blunt dissection. The pocket was flushed with antibiotic solution. A 6 Belgian Bard single lumen power injectable port was [...] MDReport Verified Date/Time: 08/26/2022 07:43:31 Reading Location: [place] [address] Angio Body Reading Room ANG, TUNNEL CATH CENTRAL INS W/PORT [id number] 07:43:00 [facility] : 1935 Sex: FFINAL REPORT Right internal [...] the patient's medical record by the nurse. Grinder Gear: Lemuel Montilla MD Copper Miner Blasting: None. Approach: Right internal jugular vein Estimated [...] needle into the right atrium. A 4 Belgian micropuncture sheath was placed and a 0.035 wire was advanced into the IVC. A subcutaneous tunnel and pocket were created in the right anterior chest wall by blunt dissection. The pocket was flushed with antibiotic solution. A 6 Belgian Bard single lumen power injectable port was [...] MDReport Verified Date/Time: 08/26/2022 07:43:31 Reading Location: [facility] P048 Angio Body Reading Room ANG, U/S GUIDANCE FOR VASCULAR [id number] 07:43:00 [facility] : 1935 Sex: FFINAL [...] the patient's medical record by the nurse. Grinder Gear: Lemuel Montilla MD Copper Miner Blasting: None. Approach: Right internal jugular vein Estimated [...] needle into the right atrium. A 4 Belgian micropuncture sheath was placed and a 0.035 wire was advanced into the IVC. A subcutaneous tunnel and pocket were created in the right anterior chest wall by blunt dissection. The pocket was flushed with antibiotic solution. A 6 Belgian Bard single lumen power injectable port was [...] MDReport Verified Date/Time: 08/26/2022 07:43:31 Reading Location: [facility] P048 Angio Body Reading Room U/S, [id number] 17:37:00Malignant pleural effusion- needs right sided pleural effusion drainedNO CYTOLOGY NEEDED!Release to patient->ImmediateWhich [facility] radiology location is preferred?->Citlalli [facility] : 1935 Sex: FFINAL REPORT Ultrasound guided right thoracentesis. Clinical History: Right pleural effusion. Modality: Ultrasound. Sedation: None. Grinder Gear: Arin Landry PA-C Copper Miner Blasting: None. Estimated Blood Loss: 1cc Specimen: 800 [...] MDReport Verified Date/Time: 08/18/2022 17:37:10 Reading Location: [facility] P0J Ultrasound Reading Room RAD, CHEST, 1 VIEW, NON [id number] 12:40:00Reason for exam:->s/p right thoraShould this be performed at the bedside?->YesIn [place] [facility] : 1935 Sex: [...] pneumonia. 3.Small left pleural effusion. Signed: Horace Richards MDReportVerified Date/Time: 08/18/2022 12:40:12 Reading Location: [address] Reading Room PROTHROMBIN TIME/[id number] 10:35:53 Test Item Value Reference Range Interpretation Comments PROTIME (BEAKER) 15.2 seconds 11.9-14.2 H (test code = 759) INR (BEAKER) (test 1.22 See_Comment [Automat ed message] code = 370) The system [employer] generated this result transmitted ref erence range: <=5.90. The reference range was not used to int erpret this result as normal/abnormal . RECOMMENDED COUMADIN/WARFARIN INR THERAPY RANGESSTANDARD DOSE: 2.0 - 3.0 Includes: PROPHYLAXIS for venous thrombosis, systemic embolization; TREATMENT for venous thrombosis and/or pulmonary embolus.HIGH RISK: Target INR is 2.5-3.5 for patients with mechanical heart valves.CBC W/PLT COUNT & AUTO [id number] 10:18:44 Test Item Value Reference Range Interpretation [...] PERCENT (BEAKER) (test code = 2801) CT, [id number] 09:21:00Unlisted Reason for Exam - Click Yes and Enter Reason Below->YesUnlisted Reason for Exam->malignant neoplasm of both ovariesIs this for enterography?->NoWill this procedure require oral contras t?->YesCHI [facility] : 1935 Sex: [...] oncologic history. Moderate-sized hiatal hernia. Signed: Nupur Craven Verified Date/Time: 08/04/2022 09:21:00 Reading Location: [facility] [id number] Consult Reading Room CT, CHEST, WITH IV [id number] 09:21:00Unlisted Reason for Exam - Click Yes and Enter Reason Below->YesUnlisted Reason for Exam->malignant neoplasm of both ovaries [facility] : 1935 Sex: [...] Cravenort Verified Date/Time: 08/04/2022 09:21:00 Reading Location: [place] [id number] Consult Reading Room NCE [id number] 12:01:00 Test Item Value Reference Range Interpretation Comments Glucose Lvl (test code = Glucose Lvl) 104 70-99 [facility]2022-07-29 12:01:00 Test Item Value Reference Range Interpretation Comments BUN (test code = BUN) 29 7-22 [facility]2022-07-29 12:01:00 Test Item Value Reference Range Interpretation Comments Creatinine Lvl (test code = Creatinine 0.98 0.50-1.40 Lvl) [facility]2022-07-29 12:01:00 Test Item Value Reference Range Interpretation Comments Sodium Lvl (test code = Sodium Lvl) 133 135-145 [facility]2022-07-29 12:01:00 Test Item Value Reference Range Interpretation Comments Potassium Lvl (test code = Potassium 2.7 3.5-5.1 Lvl) [facility]2022-07-29 12:01:00 Test Item Value Reference Range Interpretation Comments Chloride Lvl (test code = Chloride Lvl) 91 95-109 [facility]2022-07-29 12:01:00 Test Item Value Reference Range Interpretation Comments CO2 (test code = CO2) 33 24-32 [facility]2022-07-29 12:01:00 Test Item Value Reference Range Interpretation Comments AGAP (test code = AGAP) 11.7 10.0-20.0 [facility]2022-07-29 12:01:00 Test Item Value Reference Range Interpretation Comments Calcium Lvl (test code = Calcium Lvl) 7.9 8.5-10.5 [facility]2022-07-29 12:01:00 Test Item Value Reference Range Interpretation Comments eGFR (test code = eGFR) 56 [facility]2022-07-29 12:01:00 Test Item Value Reference Range Interpretation Comments Magnesium Lvl (test code = Magnesium 1.7 1.8-2.4 Lvl) [facility]2022-07-29 12:01:00 Test Item Value Reference Range Interpretation Comments Glucose Lvl (test code = Glucose Lvl) 104 70-99 [facility]2022-07-29 12:01:00 Test Item Value Reference Range Interpretation Comments BUN (test code = BUN) 06-10 [place] 269192-07-29 12:01:00 Test Item Value Reference Range Interpretation Comments Creatinine Lvl (test code = Creatinine 0.98 0.50-1.40 Lvl) [facility]2022-07-29 12:01:00 Test Item Value Reference Range Interpretation Comments Sodium Lvl (test code = Sodium Lvl) 133 135-145 [facility]2022-07-29 12:01:00 Test Item Value Reference Range Interpretation Comments Potassium Lvl (test code = Potassium 2.7 3.5-5.1 Lvl) [facility]2022-07-29 12:01:00 Test Item Value Reference Range Interpretation Comments Chloride Lvl (test code = Chloride Lvl) 91 95-109 [place] 269192-07-29 12:01:00 Test Item Value Reference Range Interpretation Comments CO2 (test code = CO2) 33 24-32 [facility]2022-07-29 12:01:00 Test Item Value Reference Range Interpretation Comments AGAP (test code = AGAP) 11.7 10.0-20.0 [facility]2022-07-29 12:01:00 Test Item Value Reference Range Interpretation Comments Calcium Lvl (test code = Calcium Lvl) 7.9 8.5-10.5 [facility]2022-07-29 12:01:00 Test Item Value Reference Range Interpretation Comments eGFR (test code = eGFR) 56 [facility]2022-07-29 12:01:00 Test Item Value Reference Range Interpretation Comments Magnesium Lvl (test code = Magnesium 1.7 1.8-2.4 Lvl) [facility]2022-07-29 12:01:00 Test Item Value Reference Range Interpretation Comments Glucose Lvl (test code = Glucose Lvl) 104 7099 [facility]2022-07-29 12:01:00 Test Item Value Reference Range Interpretation Comments BUN (test code = BUN) 06-10 [place] 269192-07-29 12:01:00 Test Item Value Reference Range Interpretation Comments Creatinine Lvl (test code = Creatinine 0.98 0.50-1.40 Lvl) [place] 269192-07-29 12:01:00 Test Item Value Reference Range Interpretation Comments Sodium Lvl (test code = Sodium Lvl) 133 135-145 [place] 269192-07-29 12:01:00 Test Item Value Reference Range Interpretation Comments Potassium Lvl (test code = Potassium 2.7 3.5-5.1 Lvl) [place] 269192-07-29 12:01:00 Test Item Value Reference Range Interpretation Comments Chloride Lvl (test code = Chloride Lvl) 91 95-109 [place] 269192-07-29 12:01:00 Test Item Value Reference Range Interpretation Comments CO2 (test code = CO2) 33 24-32 [place] 269192-07-29 12:01:00 Test Item Value Reference Range Interpretation Comments AGAP (test code = AGAP) 11.7 10.0-20.0 [place] 269192-07-29 12:01:00 Test Item Value Reference Range Interpretation Comments Calcium Lvl (test code = Calcium Lvl) 7.9 8.5-10.5 [place] 269192-07-29 12:01:00 Test Item Value Reference Range Interpretation Comments eGFR (test code = eGFR) 56 [place] 269192-07-29 12:01:00 Test Item Value Reference Range Interpretation Comments Magnesium Lvl (test code = Magnesium 1.7 1.8-2.4 Lvl) [place] 269192-07-29 12:01:00 Test Item Value Reference Range Interpretation Comments Glucose Lvl (test code = Glucose Lvl) 104 70-99 [place] 269192-07-29 12:01:00 Test Item Value Reference Range Interpretation Comments BUN (test code = BUN) 29 7-22 [place] 269192-07-29 12:01:00 Test Item Value Reference Range Interpretation Comments Creatinine Lvl (test code = Creatinine 0.98 0.50-1.40 Lvl) [place] 269192-07-29 12:01:00 Test Item Value Reference Range Interpretation Comments Sodium Lvl (test code = Sodium Lvl) 133 135-145 [place] 269192-07-29 12:01:00 Test Item Value Reference Range Interpretation Comments Potassium Lvl (test code = Potassium 2.7 3.5-5.1 Lvl) [place] 269192-07-29 12:01:00 Test Item Value Reference Range Interpretation Comments Chloride Lvl (test code = Chloride Lvl) 91 95-109 [place] 269192-07-29 12:01:00 Test Item Value Reference Range Interpretation Comments CO2 (test code = CO2) 33 24-32 [place] 269192-07-29 12:01:00 Test Item Value Reference Range Interpretation Comments AGAP (test code = AGAP) 11.7 10.0-20.0 [place] 269192-07-29 12:01:00 Test Item Value Reference Range Interpretation Comments Calcium Lvl (test code = Calcium Lvl) 7.9 8.5-10.5 [place] 269192-07-29 12:01:00 Test Item Value Reference Range Interpretation Comments eGFR (test code = eGFR) 56 [place] 269192-07-29 12:01:00 Test Item Value Reference Range Interpretation Comments Magnesium Lvl (test code = Magnesium 1.7 1.8-2.4 Lvl) [place] 269192-07-29 12:01:00 Test Item Value Reference Range Interpretation Comments Glucose Lvl (test code = Glucose Lvl) 104 70-99 [facility]2022-07-29 12:01:00 Test Item Value Reference Range Interpretation Comments BUN (test code = BUN) 29 7-22 [place] 269192-07-29 12:01:00 Test Item Value Reference Range Interpretation Comments Creatinine Lvl (test code = Creatinine 0.98 0.50-1.40 Lvl) [place] 269192-07-29 12:01:00 Test Item Value Reference Range Interpretation Comments Sodium Lvl (test code = Sodium Lvl) 133 135-145 [place] 269192-07-29 12:01:00 Test Item Value Reference Range Interpretation Comments Potassium Lvl (test code = Potassium 2.7 3.5-5.1 Lvl) [place] 269192-07-29 12:01:00 Test Item Value Reference Range Interpretation Comments Chloride Lvl (test code = Chloride Lvl) 91 95-109 [place] 269192-07-29 12:01:00 Test Item Value Reference Range Interpretation Comments CO2 (test code = CO2) 33 24-32 [facility]2022-07-29 12:01:00 Test Item Value Reference Range Interpretation Comments AGAP (test code = AGAP) 11.7 10.0-20.0 [place] 269192-07-29 12:01:00 Test Item Value Reference Range Interpretation Comments Calcium Lvl (test code = Calcium Lvl) 7.9 8.5-10.5 [facility]2022-07-29 12:01:00 Test Item Value Reference Range Interpretation Comments eGFR (test code = eGFR) 56 [facility]2022-07-29 12:01:00 Test Item Value Reference Range Interpretation Comments Magnesium Lvl (test code = Magnesium 1.7 1.8-2.4 Lvl) [facility]2022-07-29 12:01:00 Test Item Value Reference Range Interpretation Comments Glucose Lvl (test code = Glucose Lvl) 104 70-99 [facility]2022-07-29 12:01:00 Test Item Value Reference Range Interpretation Comments BUN (test code = BUN) 29 7-22 [facility]2022-07-29 12:01:00 Test Item Value Reference Range Interpretation Comments Creatinine Lvl (test code = Creatinine 0.98 0.50-1.40 Lvl) [facility]2022-07-29 12:01:00 Test Item Value Reference Range Interpretation Comments Sodium Lvl (test code = Sodium Lvl) 133 135-145 [facility]2022-07-29 12:01:00 Test Item Value Reference Range Interpretation Comments Potassium Lvl (test code = Potassium 2.7 3.5-5.1 Lvl) [facility]2022-07-29 12:01:00 Test Item Value Reference Range Interpretation Comments Chloride Lvl (test code = Chloride Lvl) 91 95-109 [facility]2022-07-29 12:01:00 Test Item Value Reference Range Interpretation Comments CO2 (test code = CO2) 33 24-32 [facility]2022-07-29 12:01:00 Test Item Value Reference Range Interpretation Comments AGAP (test code = AGAP) 11.7 10.0-20.0 [place] 269192-07-29 12:01:00 Test Item Value Reference Range Interpretation Comments Calcium Lvl (test code = Calcium Lvl) 7.9 8.5-10.5 [place] 269192-07-29 12:01:00 Test Item Value Reference Range Interpretation Comments eGFR (test code = eGFR) 56 [place] 269192-07-29 12:01:00 Test Item Value Reference Range Interpretation Comments Magnesium Lvl (test code = Magnesium 1.7 1.8-2.4 Lvl) [facility]2022-07-27 09:07:00 Test Item Value Reference Range Interpretation Comments eGFR (test code = eGFR) 59 [place] 725552-07-27 09:07:00 Test Item Value Reference Range Interpretation Comments WBC (test code = WBC) 7.2 3.7-10.4 [place] 725552-07-27 09:07:00 Test Item Value Reference Range Interpretation Comments RBC (test code = RBC) 3.06 4.20-5.40 [place] 725552-07-27 09:07:00 Test Item Value Reference Range Interpretation Comments Hgb (test code = Hgb) 7.4 12.0-16.0 [place] 725552-07-27 09:07:00 Test Item Value Reference Range Interpretation Comments Hct (test code = Hct) 22.5 36.0-48.0 [place] 725552-07-27 09:07:00 Test Item Value Reference Range Interpretation Comments MCV (test code = MCV) 73.6 80.0-98.0 [place] 725552-07-27 09:07:00 Test Item Value Reference Range Interpretation Comments MCH (test code = MCH) 24.2 pg 27.0-31.0 [place] 725552-07-27 09:07:00 Test Item Value Reference Range Interpretation Comments MCHC (test code = MCHC) 32.9 32.0-36.0 [place] 725552-07-27 09:07:00 Test Item Value Reference Range Interpretation Comments RDW (test code = RDW) 20.8 11.5-14.5 [place] 725552-07-27 09:07:00 Test Item Value Reference Range Interpretation Comments Platelet (test code = Platelet) 286 133-450 [facility] 09:07:00 Test Item Value Reference Range Interpretation Comments MPV (test code = MPV) 7.4 7.4-10.4 [place] 725552-07-27 09:07:00 Test Item Value Reference Range Interpretation Comments Segs (test code = Segs) 73.8 45.0-75.0 [place] 725552-07-27 09:07:00 Test Item Value Reference Range Interpretation Comments Lymphocytes (test code = Lymphocytes) 17.2 20.0-40.0 [place] 725552-07-27 09:07:00 Test Item Value Reference Range Interpretation Comments Monocytes (test code = Monocytes) 8.8 2.0-12.0 [place] 725552-07-27 09:07:00 Test Item Value Reference Range Interpretation Comments Neutrophils # (test code = Neutrophils 5.3 1.5-8.1 #) [place] 725552-07-27 09:07:00 Test Item Value Reference Range Interpretation Comments Lymphocytes # (test code = Lymphocytes 1.2 1.0-5.5 #) [place] 725552-07-27 09:07:00 Test Item Value Reference Range Interpretation Comments Monocytes # (test code 0.6 See_Comment [Aut omated message] The = Monocytes #) system which generated this result tra nsmitted reference range : <=0.8. The reference r hugo was not used to int erpret this result as normal/abnormal . [facility]XRHWX[facility]YRY4724[facility]44-[facility] 09:07:00 Test Item Value Reference Range Interpretation Comments Microcyte (test code = 1+ *ABN*(06/15/22 Microcyte) 4:07 AM) [facility]2022-07-27 09:07:00 Test Item Value Reference Range Interpretation Comments Glucose Lvl (test code = Glucose Lvl) 108 70-99 [place] 269192-07-27 09:07:00 Test Item Value Reference Range Interpretation Comments BUN (test code = BUN) 29 7-22 [place] 269192-07-27 09:07:00 Test Item Value Reference Range Interpretation Comments Creatinine Lvl (test code = Creatinine 0.94 0.50-1.40 Lvl) [place] 269192-07-27 09:07:00 Test Item Value Reference Range Interpretation Comments Sodium Lvl (test code = Sodium Lvl) 131 135-145 [place] [address]-07-27 09:07:00 Test Item Value Reference Range Interpretation Comments Potassium Lvl (test code = Potassium 3.2 3.5-5.1 Lvl) [place] [address]-07-27 09:07:00 Test Item Value Reference Range Interpretation Comments Chloride Lvl (test code = Chloride Lvl) 93 95-109 [place] [address]-07-27 09:07:00 Test Item Value Reference Range Interpretation Comments CO2 (test code = CO2) 31 24-32 [place] 269192-07-27 09:07:00 Test Item Value Reference Range Interpretation Comments Calcium Lvl (test code = Calcium Lvl) 8.0 8.5-10.5 [place] [address]-07-27 09:07:00 Test Item Value Reference Range Interpretation Comments Total Protein (test code = Total 5.7 6.4-8.4 Protein) [place] [address]-07-27 09:07:00 Test Item Value Reference Range Interpretation Comments Albumin Lvl (test code = Albumin Lvl) 2.6 3.5-5.0 [place] [address]-07-27 09:07:00 Test Item Value Reference Range Interpretation Comments ALT (test code = ALT) 18 See_Comment [Auto mated message] The system which ge nerated this result transmit lavon reference range : <=65. The reference range was not used to interpr et this result as dionne l/abnormal. [place] [address]-07-27 09:07:00 Test Item Value Reference Range Interpretation Comments AST (test code = AST) 28 See_Comment [Auto mated message] The system which ge nerated this result transmit lavon reference range : <=37. The reference range was not used to interpr et this result as dionne l/abnormal. [place] [address]-07-27 09:07:00 Test Item Value Reference Range Interpretation Comments Alk Phos (test code = Alk Phos) 44 39-136 [place] 269192-07-27 09:07:00 Test Item Value Reference Range Interpretation Comments Bili Total (test code = Bili Total) 1.1 0.2-1.3 [place] 269192-07-27 09:07:00 Test Item Value Reference Range Interpretation Comments AGAP (test code = AGAP) 10.2 10.0-20.0 [place] 269192-07-27 09:07:00 Test Item Value Reference Range Interpretation Comments B/C Ratio (test code = B/C Ratio) 31 1 6-25 [place] 269192-07-27 09:07:00 Test Item Value Reference Range Interpretation Comments Globulin (test code = Globulin) 3.1 2.7-4.2 [place] 269192-07-27 09:07:00 Test Item Value Reference Range Interpretation Comments A/G Ratio (test code = A/G Ratio) 0.8 1 0.7-1.6 [place] 269192-07-27 09:07:00 Test Item Value Reference Range Interpretation Comments Glucose Lvl (test code = Glucose Lvl) 108 70-99 [place] 269192-07-27 09:07:00 Test Item Value Reference Range Interpretation Comments BUN (test code = BUN) 29 7-22 [place] 269192-07-27 09:07:00 Test Item Value Reference Range Interpretation Comments Creatinine Lvl (test code = Creatinine 0.94 0.50-1.40 Lvl) [place] 269192-07-27 09:07:00 Test Item Value Reference Range Interpretation Comments Sodium Lvl (test code = Sodium Lvl) 131 135-145 [place] 269192-07-27 09:07:00 Test Item Value Reference Range Interpretation Comments Potassium Lvl (test code = Potassium 3.2 3.5-5.1 Lvl) [place] 269192-07-27 09:07:00 Test Item Value Reference Range Interpretation Comments Chloride Lvl (test code = Chloride Lvl) 93 95-109 [place] 269192-07-27 09:07:00 Test Item Value Reference Range Interpretation Comments CO2 (test code = CO2) 31 24-32 [place] 269192-07-27 09:07:00 Test Item Value Reference Range Interpretation Comments Calcium Lvl (test code = Calcium Lvl) 8.0 8.5-10.5 [facility] [id number] 09:07:00 Test Item Value Reference Range Interpretation Comments Total Protein (test code = Total 5.7 6.4-8.4 Protein) [place] 269192-07-27 09:07:00 Test Item Value Reference Range Interpretation Comments Albumin Lvl (test code = Albumin Lvl) 2.6 3.5-5.0 [facility] [id number] 09:07:00 Test Item Value Reference Range Interpretation Comments ALT (test code = ALT) 18 See_Comment [Auto mated message] The system which ge nerated this result transmit lavon reference range : <=65. The reference range was not used to interpr et this result as dionne l/abnormal. [facility] [id number] 09:07:00 Test Item Value Reference Range Interpretation Comments AST (test code = AST) 28 See_Comment [Auto mated message] The system which ge nerated this result transmit lavon reference range : <=37. The reference range was not used to interpr et this result as dionne l/abnormal. [facility] [id number] 09:07:00 Test Item Value Reference Range Interpretation Comments Alk Phos (test code = Alk Phos) 44 39-136 [facility] [id number] 09:07:00 Test Item Value Reference Range Interpretation Comments Bili Total (test code = Bili Total) 1.1 0.2-1.3 [facility] [id number] 09:07:00 Test Item Value Reference Range Interpretation Comments AGAP (test code = AGAP) 10.2 10.0-20.0 [facility] [id number] 09:07:00 Test Item Value Reference Range Interpretation Comments B/C Ratio (test code = B/C Ratio) 31 1 6-25 [facility] [id number] 09:07:00 Test Item Value Reference Range Interpretation Comments Globulin (test code = Globulin) 3.1 2.7-4.2 [facility] [id number] 09:07:00 Test Item Value Reference Range Interpretation Comments A/G Ratio (test code = A/G Ratio) 0.8 1 0.7-1.6 [id number] 09:07:00 Test Item Value Reference Range Interpretation Comments eGFR (test code = eGFR) 59 [place] 725552-07-27 09:07:00 Test Item Value Reference Range Interpretation Comments WBC (test code = WBC) 7.2 3.7-10.4 [place] 725552-07-27 09:07:00 Test Item Value Reference Range Interpretation Comments RBC (test code = RBC) 3.06 4.20-5.40 [place] 725552-07-27 09:07:00 Test Item Value Reference Range Interpretation Comments Hgb (test code = Hgb) 7.4 12.0-16.0 [place] 725552-07-27 09:07:00 Test Item Value Reference Range Interpretation Comments Hct (test code = Hct) 22.5 36.0-48.0 [place] 725552-07-27 09:07:00 Test Item Value Reference Range Interpretation Comments MCV (test code = MCV) 73.6 80.0-98.0 [place] 725552-07-27 09:07:00 Test Item Value Reference Range Interpretation Comments MCH (test code = MCH) 24.2 pg 27.0-31.0 [place] 725552-07-27 09:07:00 Test Item Value Reference Range Interpretation Comments MCHC (test code = MCHC) 32.9 32.0-36.0 [place] 725552-07-27 09:07:00 Test Item Value Reference Range Interpretation Comments RDW (test code = RDW) 20.8 11.5-14.5 [place] 725552-07-27 09:07:00 Test Item Value Reference Range Interpretation Comments Platelet (test code = Platelet) 286 133-450 [place] 725552-07-27 09:07:00 Test Item Value Reference Range Interpretation Comments MPV (test code = MPV) 7.4 7.4-10.4 [place] 725552-07-27 09:07:00 Test Item Value Reference Range Interpretation Comments Segs (test code = Segs) 73.8 45.0-75.0 [place] 725552-07-27 09:07:00 Test Item Value Reference Range Interpretation Comments Lymphocytes (test code = Lymphocytes) 17.2 20.0-40.0 [place] [address]-07-27 09:07:00 Test Item Value Reference Range Interpretation Comments Monocytes (test code = Monocytes) 8.8 2.0-12.0 [place] 725552-07-27 09:07:00 Test Item Value Reference Range Interpretation Comments Neutrophils # (test code = Neutrophils 5.3 1.5-8.1 #) [place] 725552-07-27 09:07:00 Test Item Value Reference Range Interpretation Comments Lymphocytes # (test code = Lymphocytes 1.2 1.0-5.5 #) [place] [address]-07-27 09:07:00 Test Item Value Reference Range Interpretation Comments Monocytes # (test code 0.6 See_Comment [Aut omated message] The = Monocytes #) system which generated this result tra nsmitted reference range : <=0.8. The reference r hugo was not used to int erpret this result as normal/abnormal . [place] 725552-07-27 09:07:00 Test Item Value Reference Range Interpretation Comments Microcyte (test code = 1+ *ABN*(06/15/22 Microcyte) 4:07 AM) [place] 269192-07-27 09:07:00 Test Item Value Reference Range Interpretation Comments Glucose Lvl (test code = Glucose Lvl) 108 70-99 [place] 269192-07-27 09:07:00 Test Item Value Reference Range Interpretation Comments BUN (test code = BUN) 29 7-22 [place] 269192-07-27 09:07:00 Test Item Value Reference Range Interpretation Comments Creatinine Lvl (test code = Creatinine 0.94 0.50-1.40 Lvl) [place] 269192-07-27 09:07:00 Test Item Value Reference Range Interpretation Comments Sodium Lvl (test code = Sodium Lvl) 131 135-145 [place] 269192-07-27 09:07:00 Test Item Value Reference Range Interpretation Comments Potassium Lvl (test code = Potassium 3.2 3.5-5.1 Lvl) [place] 269192-07-27 09:07:00 Test Item Value Reference Range Interpretation Comments Chloride Lvl (test code = Chloride Lvl) 93 95-109 [place] [address]-07-27 09:07:00 Test Item Value Reference Range Interpretation Comments CO2 (test code = CO2) 31 24-32 [place] 269192-07-27 09:07:00 Test Item Value Reference Range Interpretation Comments Calcium Lvl (test code = Calcium Lvl) 8.0 8.5-10.5 [place] 269192-07-27 09:07:00 Test Item Value Reference Range Interpretation Comments Total Protein (test code = Total 5.7 6.4-8.4 Protein) [place] 269192-07-27 09:07:00 Test Item Value Reference Range Interpretation Comments Albumin Lvl (test code = Albumin Lvl) 2.6 3.5-5.0 [place] 269192-07-27 09:07:00 Test Item Value Reference Range Interpretation Comments ALT (test code = ALT) 18 See_Comment [Auto mated message] The system which ge nerated this result transmit lavon reference range : <=65. The reference range was not used to interpr et this result as dionne l/abnormal. [facility]2022-07-27 09:07:00 Test Item Value Reference Range Interpretation Comments AST (test code = AST) 28 See_Comment [Auto mated message] The system which ge nerated this result transmit lavon reference range : <=37. The reference range was not used to interpr et this result as dionne l/abnormal. [place] 269192-07-27 09:07:00 Test Item Value Reference Range Interpretation Comments Alk Phos (test code = Alk Phos) 44 39-136 [place] 269192-07-27 09:07:00 Test Item Value Reference Range Interpretation Comments Bili Total (test code = Bili Total) 1.1 0.2-1.3 [place] 269192-07-27 09:07:00 Test Item Value Reference Range Interpretation Comments AGAP (test code = AGAP) 10.2 10.0-20.0 [place] 269192-07-27 09:07:00 Test Item Value Reference Range Interpretation Comments B/C Ratio (test code = B/C Ratio) 31 1 6-25 [facility] [id number] 09:07:00 Test Item Value Reference Range Interpretation Comments Globulin (test code = Globulin) 3.1 2.7-4.2 [facility] [id number] 09:07:00 Test Item Value Reference Range Interpretation Comments A/G Ratio (test code = A/G Ratio) 0.8 1 0.7-1.6 [facility] [id number] 09:07:00 Test Item Value Reference Range Interpretation Comments eGFR (test code = eGFR) 59 [facility]LlglkzcGSIJBMIYTW9369-18-68 09:07:00 Test Item Value Reference Range Interpretation Comments WBC (test code = WBC) 7.2 3.7-10.4 [place] 725552-07-27 09:07:00 Test Item Value Reference Range Interpretation Comments RBC (test code = RBC) 3.06 4.20-5.40 [facility] HospitalAioivrnRVTDZNWHCE5503-93-26 09:07:00 Test Item Value Reference Range Interpretation Comments Hgb (test code = Hgb) 7.4 12.0-16.0 [place] 725552-07-27 09:07:00 Test Item Value Reference Range Interpretation Comments Hct (test code = Hct) 22.5 36.0-48.0 [facility] H[id number] 09:07:00 Test Item Value Reference Range Interpretation Comments MCV (test code = MCV) 73.6 80.0-98.0 [facility] HospitalSwmkfcyHPUYWIVXCU4358-64-86 09:07:00 Test Item Value Reference Range Interpretation Comments MCH (test code = MCH) 24.2 pg 27.0-31.0 [facility] Hos[id number] 09:07:00 Test Item Value Reference Range Interpretation Comments MCHC (test code = MCHC) 32.9 32.0-36.0 [place] 725552-07-27 09:07:00 Test Item Value Reference Range Interpretation Comments RDW (test code = RDW) 20.8 11.5-14.5 [facility] H[id number] 09:07:00 Test Item Value Reference Range Interpretation Comments Platelet (test code = Platelet) 286 133-450 [facility] Hos[id number] 09:07:00 Test Item Value Reference Range Interpretation Comments MPV (test code = MPV) 7.4 7.4-10.[address]07-27 09:07:00 Test Item Value Reference Range Interpretation Comments Segs (test code = Segs) 73.8 45.0-75.0 [place] 725552-07-27 09:07:00 Test Item Value Reference Range Interpretation Comments Lymphocytes (test code = Lymphocytes) 17.2 20.0-40.0 [place] [address]-07-27 09:07:00 Test Item Value Reference Range Interpretation Comments Monocytes (test code = Monocytes) 8.8 2.0-12.0 [place] 725552-07-27 09:07:00 Test Item Value Reference Range Interpretation Comments Neutrophils # (test code = Neutrophils 5.3 1.5-8.1 #) [place] [address]-07-27 09:07:00 Test Item Value Reference Range Interpretation Comments Lymphocytes # (test code = Lymphocytes 1.2 1.0-5.5 #) [place] 725552-07-27 09:07:00 Test Item Value Reference Range Interpretation Comments Monocytes # (test code 0.6 See_Comment [Aut omated message] The = Monocytes #) system which generated this result tra nsmitted reference range : <=0.8. The reference r hugo was not used to int erpret this result as normal/abnormal . [place] 725552-07-27 09:07:00 Test Item Value Reference Range Interpretation Comments Microcyte (test code = 1+ *ABN*(06/15/22 Microcyte) 4:07 AM) [place] 269192-07-27 09:07:00 Test Item Value Reference Range Interpretation Comments Glucose Lvl (test code = Glucose Lvl) 108 70-99 [place] 269192-07-27 09:07:00 Test Item Value Reference Range Interpretation Comments BUN (test code = BUN) 29 -22 [place] 269192-07-27 09:07:00 Test Item Value Reference Range Interpretation Comments Creatinine Lvl (test code = Creatinine 0.94 0.50-1.40 Lvl) [place] 269192-07-27 09:07:00 Test Item Value Reference Range Interpretation Comments Sodium Lvl (test code = Sodium Lvl) 131 135-145 [place] 269192-07-27 09:07:00 Test Item Value Reference Range Interpretation Comments Potassium Lvl (test code = Potassium 3.2 3.5-5.1 Lvl) [place] 269192-07-27 09:07:00 Test Item Value Reference Range Interpretation Comments Chloride Lvl (test code = Chloride Lvl) 93 95-109 [place] 269192-07-27 09:07:00 Test Item Value Reference Range Interpretation Comments CO2 (test code = CO2) 31 24-32 [place] 269192-07-27 09:07:00 Test Item Value Reference Range Interpretation Comments Calcium Lvl (test code = Calcium Lvl) 8.0 8.5-10.5 [place] 269192-07-27 09:07:00 Test Item Value Reference Range Interpretation Comments Total Protein (test code = Total 5.7 6.4-8.4 Protein) [place] 269192-07-27 09:07:00 Test Item Value Reference Range Interpretation Comments Albumin Lvl (test code = Albumin Lvl) 2.6 3.5-5.0 [facility] [id number] 09:07:00 Test Item Value Reference Range Interpretation Comments ALT (test code = ALT) 18 See_Comment [Auto mated message] The system which ge nerated this result transmit lavon reference range : <=65. The reference range was not used to interpr et this result as dionne l/abnormal. [place] 269192-07-27 09:07:00 Test Item Value Reference Range Interpretation Comments AST (test code = AST) 28 See_Comment [Auto mated message] The system which ge nerated this result transmit lavon reference range : <=37. The reference range was not used to interpr et this result as dionne l/abnormal. [place] 269192-07-27 09:07:00 Test Item Value Reference Range Interpretation Comments Alk Phos (test code = Alk Phos) 44 39-136 [facility] [id number] 09:07:00 Test Item Value Reference Range Interpretation Comments Bili Total (test code = Bili Total) 1.1 0.2-1.3 [place] [address]-07-27 09:07:00 Test Item Value Reference Range Interpretation Comments AGAP (test code = AGAP) 10.2 10.0-20.0 [place] 269192-07-27 09:07:00 Test Item Value Reference Range Interpretation Comments B/C Ratio (test code = B/C Ratio) 31 1 6-25 [place] 269192-07-27 09:07:00 Test Item Value Reference Range Interpretation Comments Globulin (test code = Globulin) 3.1 2.7-4.2 [place] 269192-07-27 09:07:00 Test Item Value Reference Range Interpretation Comments A/G Ratio (test code = A/G Ratio) 0.8 1 0.7-1.6 [place] 269192-07-27 09:07:00 Test Item Value Reference Range Interpretation Comments eGFR (test code = eGFR) 59 [place] 725552-07-27 09:07:00 Test Item Value Reference Range Interpretation Comments WBC (test code = WBC) 7.2 3.7-10.4 [place] 725552-07-27 09:07:00 Test Item Value Reference Range Interpretation Comments RBC (test code = RBC) 3.06 4.20-5.40 [place] 725552-07-27 09:07:00 Test Item Value Reference Range Interpretation Comments Hgb (test code = Hgb) 7.4 12.0-16.0 [id number] 09:07:00 Test Item Value Reference Range Interpretation Comments Hct (test code = Hct) 22.5 36.0-48.0 [place] 725552-07-27 09:07:00 Test Item Value Reference Range Interpretation Comments MCV (test code = MCV) 73.6 80.0-98.0 [place] 725552-07-27 09:07:00 Test Item Value Reference Range Interpretation Comments MCH (test code = MCH) 24.2 pg 27.0-31.0 [place] 725552-07-27 09:07:00 Test Item Value Reference Range Interpretation Comments MCHC (test code = MCHC) 32.9 32.0-36.0 [place] 725552-07-27 09:07:00 Test Item Value Reference Range Interpretation Comments RDW (test code = RDW) 20.8 11.5-14.5 [place] 725552-07-27 09:07:00 Test Item Value Reference Range Interpretation Comments Platelet (test code = Platelet) 286 133-450 [place] 725552-07-27 09:07:00 Test Item Value Reference Range Interpretation Comments MPV (test code = MPV) 7.4 7.4-10.4 [place] 725552-07-27 09:07:00 Test Item Value Reference Range Interpretation Comments Segs (test code = Segs) 73.8 45.0-75.0 [place] 725552-07-27 09:07:00 Test Item Value Reference Range Interpretation Comments Lymphocytes (test code = Lymphocytes) 17.2 20.0-40.0 [place] 725552-07-27 09:07:00 Test Item Value Reference Range Interpretation Comments Monocytes (test code = Monocytes) 8.8 2.0-12.0 [place] 725552-07-27 09:07:00 Test Item Value Reference Range Interpretation Comments Neutrophils # (test code = Neutrophils 5.3 1.5-8.1 #) [id number] 09:07:00 Test Item Value Reference Range Interpretation Comments Lymphocytes # (test code = Lymphocytes 1.2 1.0-5.5 #) [place] 725552-07-27 09:07:00 Test Item Value Reference Range Interpretation Comments Monocytes # (test code 0.6 See_Comment [Aut omated message] The = Monocytes #) system which generated this result tra nsmitted reference range : <=0.8. The reference r hugo was not used to int erpret this result as normal/abnormal . [facility]GepkvjjHPCDMTIIFY6549-12-37 09:07:00 Test Item Value Reference Range Interpretation Comments Microcyte (test code = 1+ *ABN*(06/15/22 Microcyte) 4:07 AM) [place] 269192-07-27 09:07:00 Test Item Value Reference Range Interpretation Comments Glucose Lvl (test code = Glucose Lvl) 108 70-99 [place] 269192-07-27 09:07:00 Test Item Value Reference Range Interpretation Comments BUN (test code = BUN) 29 -22 [place] 269192-07-27 09:07:00 Test Item Value Reference Range Interpretation Comments Creatinine Lvl (test code = Creatinine 0.94 0.50-1.40 Lvl) [place] [address]-07-27 09:07:00 Test Item Value Reference Range Interpretation Comments Sodium Lvl (test code = Sodium Lvl) 131 135-145 [place] 269192-07-27 09:07:00 Test Item Value Reference Range Interpretation Comments Potassium Lvl (test code = Potassium 3.2 3.5-5.1 Lvl) [place] [address]-07-27 09:07:00 Test Item Value Reference Range Interpretation Comments Chloride Lvl (test code = Chloride Lvl) 93 95-109 [place] [address]-07-27 09:07:00 Test Item Value Reference Range Interpretation Comments CO2 (test code = CO2) 31 24-32 [place] 269192-07-27 09:07:00 Test Item Value Reference Range Interpretation Comments Calcium Lvl (test code = Calcium Lvl) 8.0 8.5-10.5 [place] 269192-07-27 09:07:00 Test Item Value Reference Range Interpretation Comments Total Protein (test code = Total 5.7 6.4-8.4 Protein) [place] 269192-07-27 09:07:00 Test Item Value Reference Range Interpretation Comments Albumin Lvl (test code = Albumin Lvl) 2.6 3.5-5.0 [place] 269192-07-27 09:07:00 Test Item Value Reference Range Interpretation Comments ALT (test code = ALT) 18 See_Comment [Auto mated message] The system which [employer] nerated this result transmit lavon reference range : <=65. The reference range was not used to interpr et this result as dionne l/abnormal. [place] 269192-07-27 09:07:00 Test Item Value Reference Range Interpretation Comments AST (test code = AST) 28 See_Comment [Auto mated message] The system which ge nerated this result transmit lavon reference range : <=37. The reference range was not used to interpr et this result as dionne l/abnormal. [place] 269192-07-27 09:07:00 Test Item Value Reference Range Interpretation Comments Alk Phos (test code = Alk Phos) 44 39-136 [place] 269192-07-27 09:07:00 Test Item Value Reference Range Interpretation Comments Bili Total (test code = Bili Total) 1.1 0.2-1.3 [place] 269192-07-27 09:07:00 Test Item Value Reference Range Interpretation Comments AGAP (test code = AGAP) 10.2 10.0-20.0 [facility]2022-07-27 09:07:00 Test Item Value Reference Range Interpretation Comments B/C Ratio (test code = B/C Ratio) 31 1 6-25 [place] 269192-07-27 09:07:00 Test Item Value Reference Range Interpretation Comments Globulin (test code = Globulin) 3.1 2.7-4.2 [place] 269192-07-27 09:07:00 Test Item Value Reference Range Interpretation Comments A/G Ratio (test code = A/G Ratio) 0.8 1 0.7-1.6 [place] 269192-07-27 09:07:00 Test Item Value Reference Range Interpretation Comments eGFR (test code = eGFR) 59 [place] 725552-07-27 09:07:00 Test Item Value Reference Range Interpretation Comments WBC (test code = WBC) 7.2 3.7-10.4 [place] 725552-07-27 09:07:00 Test Item Value Reference Range Interpretation Comments RBC (test code = RBC) 3.06 4.20-5.40 [place] 725552-07-27 09:07:00 Test Item Value Reference Range Interpretation Comments Hgb (test code = Hgb) 7.4 12.0-16.0 [place] 725552-07-27 09:07:00 Test Item Value Reference Range Interpretation Comments Hct (test code = Hct) 22.5 36.0-48.0 [place] [address]-07-27 09:07:00 Test Item Value Reference Range Interpretation Comments MCV (test code = MCV) 73.6 80.0-98.0 [place] 725552-07-27 09:07:00 Test Item Value Reference Range Interpretation Comments MCH (test code = MCH) 24.2 pg 27.0-31.0 [place] 725552-07-27 09:07:00 Test Item Value Reference Range Interpretation Comments MCHC (test code = MCHC) 32.9 32.0-36.0 [place] 725552-07-27 09:07:00 Test Item Value Reference Range Interpretation Comments RDW (test code = RDW) 20.8 11.5-14.5 [place] 725552-07-27 09:07:00 Test Item Value Reference Range Interpretation Comments Platelet (test code = Platelet) 286 133-450 [place] 725552-07-27 09:07:00 Test Item Value Reference Range Interpretation Comments MPV (test code = MPV) 7.4 7.4-10.4 [place] 725552-07-27 09:07:00 Test Item Value Reference Range Interpretation Comments Segs (test code = Segs) 73.8 45.0-75.0 [place] 725552-07-27 09:07:00 Test Item Value Reference Range Interpretation Comments Lymphocytes (test code = Lymphocytes) 17.2 20.0-40.0 [place] 725552-07-27 09:07:00 Test Item Value Reference Range Interpretation Comments Monocytes (test code = Monocytes) 8.8 2.0-12.0 [place] 725552-07-27 09:07:00 Test Item Value Reference Range Interpretation Comments Neutrophils # (test code = Neutrophils 5.3 1.5-8.1 #) [facility]ZzcwhvfPPJCDCOWUX1475-45-50 09:07:00 Test Item Value Reference Range Interpretation Comments Lymphocytes # (test code = Lymphocytes 1.2 1.0-5.5 #) [place] [address]-07-27 09:07:00 Test Item Value Reference Range Interpretation Comments Monocytes # (test code 0.6 See_Comment [Aut omated message] The = Monocytes #) system which generated this result tra nsmitted reference range : <=0.8. The reference r hugo was not used to int erpret this result as normal/abnormal . [facility] HospitalOdyevuvMSAOWCJHNS4927-48-76 09:07:00 Test Item Value Reference Range Interpretation Comments Microcyte (test code = 1+ *ABN*(06/15/22 Microcyte) 4:07 AM) [facility]2022-07-27 09:07:00 Test Item Value Reference Range Interpretation Comments Glucose Lvl (test code = Glucose Lvl) 108 70-99 [place] 269192-07-27 09:07:00 Test Item Value Reference Range Interpretation Comments BUN (test code = BUN) 29 7-22 [place] 269192-07-27 09:07:00 Test Item Value Reference Range Interpretation Comments Creatinine Lvl (test code = Creatinine 0.94 0.50-1.40 Lvl) [place] 269192-07-27 09:07:00 Test Item Value Reference Range Interpretation Comments Sodium Lvl (test code = Sodium Lvl) 131 135-145 [place] 269192-07-27 09:07:00 Test Item Value Reference Range Interpretation Comments Potassium Lvl (test code = Potassium 3.2 3.5-5.1 Lvl) [place] 269192-07-27 09:07:00 Test Item Value Reference Range Interpretation Comments Chloride Lvl (test code = Chloride Lvl) 93 95-109 [place] 269192-07-27 09:07:00 Test Item Value Reference Range Interpretation Comments CO2 (test code = CO2) 31 24-32 [place] 269192-07-27 09:07:00 Test Item Value Reference Range Interpretation Comments Calcium Lvl (test code = Calcium Lvl) 8.0 8.5-10.5 [place] 269192-07-27 09:07:00 Test Item Value Reference Range Interpretation Comments Total Protein (test code = Total 5.7 6.4-8.4 Protein) [place] 269192-07-27 09:07:00 Test Item Value Reference Range Interpretation Comments Albumin Lvl (test code = Albumin Lvl) 2.6 3.5-5.0 [place] 269192-07-27 09:07:00 Test Item Value Reference Range Interpretation Comments ALT (test code = ALT) 18 See_Comment [Auto mated message] The system which ge nerated this result transmit lavon reference range : <=65. The reference range was not used to interpr et this result as dionne l/abnormal. [place] 269192-07-27 09:07:00 Test Item Value Reference Range Interpretation Comments AST (test code = AST) 28 See_Comment [Auto mated message] The system which ge nerated this result transmit lavon reference range : <=37. The reference range was not used to interpr et this result as dionne l/abnormal. [facility] [id number] 09:07:00 Test Item Value Reference Range Interpretation Comments Alk Phos (test code = Alk Phos) 44 39-136 [place] 269192-07-27 09:07:00 Test Item Value Reference Range Interpretation Comments Bili Total (test code = Bili Total) 1.1 0.2-1.3 [place] 269192-07-27 09:07:00 Test Item Value Reference Range Interpretation Comments AGAP (test code = AGAP) 10.2 10.0-20.0 [facility] [id number] 09:07:00 Test Item Value Reference Range Interpretation Comments B/C Ratio (test code = B/C Ratio) 31 1 6-25 [place] 269192-07-27 09:07:00 Test Item Value Reference Range Interpretation Comments Globulin (test code = Globulin) 3.1 2.7-4.2 [place] 269192-07-27 09:07:00 Test Item Value Reference Range Interpretation Comments A/G Ratio (test code = A/G Ratio) 0.8 1 0.7-1.6 [place] 269192-07-27 09:07:00 Test Item Value Reference Range Interpretation Comments eGFR (test code = eGFR) 59 [place] 725552-07-27 09:07:00 Test Item Value Reference Range Interpretation Comments WBC (test code = WBC) 7.2 3.7-10.4 [place] 725552-07-27 09:07:00 Test Item Value Reference Range Interpretation Comments RBC (test code = RBC) 3.06 4.20-5.40 [place] [address]-07-27 09:07:00 Test Item Value Reference Range Interpretation Comments Hgb (test code = Hgb) 7.4 12.0-16.0 [place] 725552-07-27 09:07:00 Test Item Value Reference Range Interpretation Comments Hct (test code = Hct) 22.5 36.0-48.0 [place] 725552-07-27 09:07:00 Test Item Value Reference Range Interpretation Comments MCV (test code = MCV) 73.6 80.0-98.0 [facility] HospitalMnzpyhlEGVRGEDBDZ9025-52-69 09:07:00 Test Item Value Reference Range Interpretation Comments MCH (test code = MCH) 24.2 pg 27.0-31.0 [facility] HospitalSzvdklxHIJFGFXQFO6176-11-48 09:07:00 Test Item Value Reference Range Interpretation Comments MCHC (test code = MCHC) 32.9 32.0-36.0 [facility] HospitalLftvrmsUKWMOQWLAR3300-32-43 09:07:00 Test Item Value Reference Range Interpretation Comments RDW (test code = RDW) 20.8 11.5-14.5 [facility] HospitalQmcgifrSXTZRWXAED1062-38-02 09:07:00 Test Item Value Reference Range Interpretation Comments Platelet (test code = Platelet) 286 133-450 [facility] HospitalYhzykhnKBBDIMKLMO2159-01-73 09:07:00 Test Item Value Reference Range Interpretation Comments MPV (test code = MPV) 7.4 7.4-10.4 [facility] HospitalLiluphqXRMLZGNYWI6188-25-23 09:07:00 Test Item Value Reference Range Interpretation Comments Segs (test code = Segs) 73.8 45.0-75.0 [facility] HospitalClahxjlFZAVOLJEKB8690-69-43 09:07:00 Test Item Value Reference Range Interpretation Comments Lymphocytes (test code = Lymphocytes) 17.2 20.0-40.0 [facility] HospitalEkviuapMQJBPHNHZC0362-14-59 09:07:00 Test Item Value Reference Range Interpretation Comments Monocytes (test code = Monocytes) 8.8 2.0-12.0 [facility] HospitalHlvbdcwXPECRZTTRL8360-75-58 09:07:00 Test Item Value Reference Range Interpretation Comments Neutrophils # (test code = Neutrophils 5.3 1.5-8.1 #) [facility] HospitalAcoondzAKTQPYLNTN8780-61-57 09:07:00 Test Item Value Reference Range Interpretation Comments Lymphocytes # (test code = Lymphocytes 1.2 1.0-5.5 #) [place] [address]-07-27 09:07:00 Test Item Value Reference Range Interpretation Comments Monocytes # (test code 0.6 See_Comment [Aut omated message] The = Monocytes #) system which generated this result tra nsmitted reference range : <=0.8. The reference r hugo was not used to int erpret this result as normal/abnormal . [place] [address]-07-27 09:07:00 Test Item Value Reference Range Interpretation Comments Microcyte (test code = 1+ *ABN*(06/15/22 Microcyte) 4:07 AM) [place] 269192-07-26 18:34:00 Test Item Value Reference Range Interpretation Comments Glucose Lvl (test code = Glucose Lvl) 110 70-99 [place] 269192-07-26 18:34:00 Test Item Value Reference Range Interpretation Comments BUN (test code = BUN) 28 06-10 [place] 269192-07-26 18:34:00 Test Item Value Reference Range Interpretation Comments Creatinine Lvl (test code = Creatinine 1.05 0.50-1.40 Lvl) [place] 269192-07-26 18:34:00 Test Item Value Reference Range Interpretation Comments Sodium Lvl (test code = Sodium Lvl) 132 135-145 [place] 269192-07-26 18:34:00 Test Item Value Reference Range Interpretation Comments Potassium Lvl (test code = Potassium 4.4 3.5-5.1 Lvl) [place] 269192-07-26 18:34:00 Test Item Value Reference Range Interpretation Comments Chloride Lvl (test code = Chloride Lvl) 96 95-109 [place] 269192-07-26 18:34:00 Test Item Value Reference Range Interpretation Comments CO2 (test code = CO2) 27 24-32 [place] 269192-07-26 18:34:00 Test Item Value Reference Range Interpretation Comments Calcium Lvl (test code = Calcium Lvl) 8.5 8.5-10.5 [place] 269192-07-26 18:34:00 Test Item Value Reference Range Interpretation Comments AGAP (test code = AGAP) 13.4 10.0-20.0 [place] 269192-07-26 18:34:00 Test Item Value Reference Range Interpretation Comments eGFR (test code = eGFR) 51 [place] 725552-07-26 18:34:00 Test Item Value Reference Range Interpretation Comments WBC (test code = WBC) 13.5 3.7-10.4 [place] 725552-07-26 18:34:00 Test Item Value Reference Range Interpretation Comments RBC (test code = RBC) 3.63 4.20-5.40 [place] 725552-07-26 18:34:00 Test Item Value Reference Range Interpretation Comments Hgb (test code = Hgb) 8.7 12.0-16.0 [place] 725552-07-26 18:34:00 Test Item Value Reference Range Interpretation Comments Hct (test code = Hct) 28.2 36.0-48.0 [place] 725552-07-26 18:34:00 Test Item Value Reference Range Interpretation Comments MCV (test code = MCV) 77.5 80.0-98.0 [place] 725552-07-26 18:34:00 Test Item Value Reference Range Interpretation Comments MCH (test code = MCH) 24.0 pg 27.0-31.0 [place] 725552-07-26 18:34:00 Test Item Value Reference Range Interpretation Comments MCHC (test code = MCHC) 30.9 32.0-36.0 [place] 725552-07-26 18:34:00 Test Item Value Reference Range Interpretation Comments RDW (test code = RDW) 21.2 11.5-14.5 [place] 725552-07-26 18:34:00 Test Item Value Reference Range Interpretation Comments Platelet (test code = Platelet) 324 133-450 [facility] HospitalVbdohqmAIWWMRLOOU0397-46-50 18:34:00 Test Item Value Reference Range Interpretation Comments MPV (test code = MPV) 7.6 7.4-10.4 [place] 725552-07-26 18:34:00 Test Item Value Reference Range Interpretation Comments Plt Morph (test code = Normal (06/14/22 1:34 Plt Morph) PM) [place] 725552-07-26 18:34:00 Test Item Value Reference Range Interpretation Comments Segs (test code = Segs) 89.0 45.0-75.0 [place] [address]-07-26 18:34:00 Test Item Value Reference Range Interpretation Comments Bands (test code = 3.0 See_Comment [Automat ed message] The [employer]) system which ge nerated this result transmit lavon reference range : <=11.0. The reference r hugo was not used to interpr et this result as dionne l/abnormal. [place] [address]-07-26 18:34:00 Test Item Value Reference Range Interpretation Comments Lymphocytes (test code = Lymphocytes) 8.0 20.0-40.0 [place] [address]-07-26 18:34:00 Test Item Value Reference Range Interpretation Comments Monocytes (test code = Monocytes) 0.0 2.0-12.0 [place] [address]-07-26 18:34:00 Test Item Value Reference Range Interpretation Comments Neutrophils # (test code = Neutrophils 12.4 1.5-8.1 #) [place] [address]-07-26 18:34:00 Test Item Value Reference Range Interpretation Comments Lymphocytes # (test code = Lymphocytes 1.1 1.0-5.5 #) [place] [address]-07-26 18:34:00 Test Item Value Reference Range Interpretation Comments Monocytes # (test code 0.0 See_Comment [Aut omated message] The = Monocytes #) system which generated this result tra nsmitted reference range : <=0.8. The reference r hugo was not used to int erpret this result as normal/abnormal . [place] [address]-07-26 18:34:00 Test Item Value Reference Range Interpretation Comments Hypochrom (test code = 1+ (06/14/22 1:34 PM) Hypochrom) [place] 269192-07-26 18:34:00 Test Item Value Reference Range Interpretation Comments Glucose Lvl (test code = Glucose Lvl) 110 70-99 [place] 269192-07-26 18:34:00 Test Item Value Reference Range Interpretation Comments BUN (test code = BUN) 28 - [place] 269192-07-26 18:34:00 Test Item Value Reference Range Interpretation Comments Creatinine Lvl (test code = Creatinine 1.05 0.50-1.40 Lvl) [place] 269192-07-26 18:34:00 Test Item Value Reference Range Interpretation Comments Sodium Lvl (test code = Sodium Lvl) 132 135-145 [place] 269192-07-26 18:34:00 Test Item Value Reference Range Interpretation Comments Potassium Lvl (test code = Potassium 4.4 3.5-5.1 Lvl) [place] 269192-07-26 18:34:00 Test Item Value Reference Range Interpretation Comments Chloride Lvl (test code = Chloride Lvl) 96 95-109 [place] 269192-07-26 18:34:00 Test Item Value Reference Range Interpretation Comments CO2 (test code = CO2) 27 24-32 [place] [address]-07-26 18:34:00 Test Item Value Reference Range Interpretation Comments Calcium Lvl (test code = Calcium Lvl) 8.5 8.5-10.5 [place] 269192-07-26 18:34:00 Test Item Value Reference Range Interpretation Comments AGAP (test code = AGAP) 13.4 10.0-20.0 [place] 269192-07-26 18:34:00 Test Item Value Reference Range Interpretation Comments eGFR (test code = eGFR) 51 [place] 725552-07-26 18:34:00 Test Item Value Reference Range Interpretation Comments WBC (test code = WBC) 13.5 3.7-10.4 [place] 725552-07-26 18:34:00 Test Item Value Reference Range Interpretation Comments RBC (test code = RBC) 3.63 4.20-5.40 [place] [address]-07-26 18:34:00 Test Item Value Reference Range Interpretation Comments Hgb (test code = Hgb) 8.7 12.0-16.0 [place] [address]-07-26 18:34:00 Test Item Value Reference Range Interpretation Comments Hct (test code = Hct) 28.2 36.0-48.0 [place] [address]-07-26 18:34:00 Test Item Value Reference Range Interpretation Comments MCV (test code = MCV) 77.5 80.0-98.0 [place] [address]-07-26 18:34:00 Test Item Value Reference Range Interpretation Comments MCH (test code = MCH) 24.0 pg 27.0-31.0 [place] [address]-07-26 18:34:00 Test Item Value Reference Range Interpretation Comments MCHC (test code = MCHC) 30.9 32.0-36.0 [place] [address]-07-26 18:34:00 Test Item Value Reference Range Interpretation Comments RDW (test code = RDW) 21.2 11.5-14.5 [place] 725552-07-26 18:34:00 Test Item Value Reference Range Interpretation Comments Platelet (test code = Platelet) 324 133-450 [id number] 18:34:00 Test Item Value Reference Range Interpretation Comments MPV (test code = MPV) 7.6 7.4-10.4 [place] 725552-07-26 18:34:00 Test Item Value Reference Range Interpretation Comments Plt Morph (test code = Normal (06/14/22 1:34 Plt Morph) PM) [facility] HospitalLblaaxgJQUHWPPCPY2394-00-22 18:34:00 Test Item Value Reference Range Interpretation Comments Segs (test code = Segs) 89.0 45.0-75.0 [place] 725552-07-26 18:34:00 Test Item Value Reference Range Interpretation Comments Bands (test code = 3.0 See_Comment [Automat ed message] The Bands) system which ge nerated this result transmit lavon reference range : <=11.0. The reference r hugo was not used to interpr et this result as dionne l/abnormal. [facility] Hospit[id number] 18:34:00 Test Item Value Reference Range Interpretation Comments Lymphocytes (test code = Lymphocytes) 8.0 20.0-40.0 [place] 725552-07-26 18:34:00 Test Item Value Reference Range Interpretation Comments Monocytes (test code = Monocytes) 0.0 2.0-12.0 [place] 725552-07-26 18:34:00 Test Item Value Reference Range Interpretation Comments Neutrophils # (test code = Neutrophils 12.4 1.5-8.1 #) [place] 725552-07-26 18:34:00 Test Item Value Reference Range Interpretation Comments Lymphocytes # (test code = Lymphocytes 1.1 1.0-5.5 #) [place] [address]-07-26 18:34:00 Test Item Value Reference Range Interpretation Comments Monocytes # (test code 0.0 See_Comment [Aut omated message] The = Monocytes #) system which generated this result tra nsmitted reference range : <=0.8. The reference r hugo was not used to int erpret this result as normal/abnormal . [place] [address]-07-26 18:34:00 Test Item Value Reference Range Interpretation Comments Hypochrom (test code = 1+ (06/14/22 1:34 PM) Hypochrom) [place] [address]-07-26 18:34:00 Test Item Value Reference Range Interpretation Comments Glucose Lvl (test code = Glucose Lvl) 110 70-99 [place] [address]-07-26 18:34:00 Test Item Value Reference Range Interpretation Comments BUN (test code = BUN) 28 - [place] 269192-07-26 18:34:00 Test Item Value Reference Range Interpretation Comments Creatinine Lvl (test code = Creatinine 1.05 0.50-1.40 Lvl) [address]07-26 18:34:00 Test Item Value Reference Range Interpretation Comments Sodium Lvl (test code = Sodium Lvl) 132 135-145 [place] [address]-07-26 18:34:00 Test Item Value Reference Range Interpretation Comments Potassium Lvl (test code = Potassium 4.4 3.5-5.1 Lvl) [place] 269192-07-26 18:34:00 Test Item Value Reference Range Interpretation Comments Chloride Lvl (test code = Chloride Lvl) 96 95-109 [place] [address]-07-26 18:34:00 Test Item Value Reference Range Interpretation Comments CO2 (test code = CO2) 27 24-32 [place] 269192-07-26 18:34:00 Test Item Value Reference Range Interpretation Comments Calcium Lvl (test code = Calcium Lvl) 8.5 8.5-10.5 [place] 269192-07-26 18:34:00 Test Item Value Reference Range Interpretation Comments AGAP (test code = AGAP) 13.4 10.0-20.0 [place] [address]-07-26 18:34:00 Test Item Value Reference Range Interpretation Comments eGFR (test code = eGFR) 51 [place] 725552-07-26 18:34:00 Test Item Value Reference Range Interpretation Comments WBC (test code = WBC) 13.5 3.7-10.4 [place] 725552-07-26 18:34:00 Test Item Value Reference Range Interpretation Comments RBC (test code = RBC) 3.63 4.20-5.40 [place] 725552-07-26 18:34:00 Test Item Value Reference Range Interpretation Comments Hgb (test code = Hgb) 8.7 12.0-16.0 [place] 725552-07-26 18:34:00 Test Item Value Reference Range Interpretation Comments Hct (test code = Hct) 28.2 36.0-48.0 [place] 725552-07-26 18:34:00 Test Item Value Reference Range Interpretation Comments MCV (test code = MCV) 77.5 80.0-98.0 [place] 725552-07-26 18:34:00 Test Item Value Reference Range Interpretation Comments MCH (test code = MCH) 24.0 pg 27.0-31.0 [place] 725552-07-26 18:34:00 Test Item Value Reference Range Interpretation Comments MCHC (test code = MCHC) 30.9 32.0-36.0 [place] 725552-07-26 18:34:00 Test Item Value Reference Range Interpretation Comments RDW (test code = RDW) 21.2 11.5-14.5 [place] 725552-07-26 18:34:00 Test Item Value Reference Range Interpretation Comments Platelet (test code = Platelet) 324 133-450 [facility] HospitalGimpqphIBBGHNNCUQ7453-82-46 18:34:00 Test Item Value Reference Range Interpretation Comments MPV (test code = MPV) 7.6 7.4-10.4 [place] 725552-07-26 18:34:00 Test Item Value Reference Range Interpretation Comments Plt Morph (test code = Normal (06/14/22 1:34 Plt Morph) PM) [place] 725552-07-26 18:34:00 Test Item Value Reference Range Interpretation Comments Segs (test code = Segs) 89.0 45.0-75.0 [place] [address]-07-26 18:34:00 Test Item Value Reference Range Interpretation Comments Bands (test code = 3.0 See_Comment [Automat ed message] The Bands) system which ge nerated this result transmit lavon reference range : <=11.0. The reference r hugo was not used to interpr et this result as dionne l/abnormal. [place] [address]-07-26 18:34:00 Test Item Value Reference Range Interpretation Comments Lymphocytes (test code = Lymphocytes) 8.0 20.0-40.0 [place] [address]-07-26 18:34:00 Test Item Value Reference Range Interpretation Comments Monocytes (test code = Monocytes) 0.0 2.0-12.0 [place] [address]-07-26 18:34:00 Test Item Value Reference Range Interpretation Comments Neutrophils # (test code = Neutrophils 12.4 1.5-8.1 #) [place] [address]-07-26 18:34:00 Test Item Value Reference Range Interpretation Comments Lymphocytes # (test code = Lymphocytes 1.1 1.0-5.5 #) [place] [address]-07-26 18:34:00 Test Item Value Reference Range Interpretation Comments Monocytes # (test code 0.0 See_Comment [Aut omated message] The = Monocytes #) system which generated this result tra nsmitted reference range : <=0.8. The reference r hugo was not used to int erpret this result as normal/abnormal . [place] [address]-07-26 18:34:00 Test Item Value Reference Range Interpretation Comments Hypochrom (test code = 1+ (06/14/22 1:34 PM) Hypochrom) [place] 269192-07-26 18:34:00 Test Item Value Reference Range Interpretation Comments Glucose Lvl (test code = Glucose Lvl) 110 70-99 [place] 269192-07-26 18:34:00 Test Item Value Reference Range Interpretation Comments BUN (test code = BUN) 28 - [place] 269192-07-26 18:34:00 Test Item Value Reference Range Interpretation Comments Creatinine Lvl (test code = Creatinine 1.05 0.50-1.40 Lvl) [place] 269192-07-26 18:34:00 Test Item Value Reference Range Interpretation Comments Sodium Lvl (test code = Sodium Lvl) 132 135-145 [place] 269192-07-26 18:34:00 Test Item Value Reference Range Interpretation Comments Potassium Lvl (test code = Potassium 4.4 3.5-5.1 Lvl) [place] 269192-07-26 18:34:00 Test Item Value Reference Range Interpretation Comments Chloride Lvl (test code = Chloride Lvl) 96 95-109 [place] 269192-07-26 18:34:00 Test Item Value Reference Range Interpretation Comments CO2 (test code = CO2) 27 24-32 [place] [address]-07-26 18:34:00 Test Item Value Reference Range Interpretation Comments Calcium Lvl (test code = Calcium Lvl) 8.5 8.5-10.5 [place] 269192-07-26 18:34:00 Test Item Value Reference Range Interpretation Comments AGAP (test code = AGAP) 13.4 10.0-20.0 [place] 269192-07-26 18:34:00 Test Item Value Reference Range Interpretation Comments eGFR (test code = eGFR) 51 [place] 725552-07-26 18:34:00 Test Item Value Reference Range Interpretation Comments WBC (test code = WBC) 13.5 3.7-10.4 [place] 725552-07-26 18:34:00 Test Item Value Reference Range Interpretation Comments RBC (test code = RBC) 3.63 4.20-5.40 [place] [address]-07-26 18:34:00 Test Item Value Reference Range Interpretation Comments Hgb (test code = Hgb) 8.7 12.0-16.0 [place] [address]-07-26 18:34:00 Test Item Value Reference Range Interpretation Comments Hct (test code = Hct) 28.2 36.0-48.0 [place] [address]-07-26 18:34:00 Test Item Value Reference Range Interpretation Comments MCV (test code = MCV) 77.5 80.0-98.0 [place] [address]-07-26 18:34:00 Test Item Value Reference Range Interpretation Comments MCH (test code = MCH) 24.0 pg 27.0-31.0 [place] [address]-07-26 18:34:00 Test Item Value Reference Range Interpretation Comments MCHC (test code = MCHC) 30.9 32.0-36.0 [place] [address]-07-26 18:34:00 Test Item Value Reference Range Interpretation Comments RDW (test code = RDW) 21.2 11.5-14.5 [place] 725552-07-26 18:34:00 Test Item Value Reference Range Interpretation Comments Platelet (test code = Platelet) 324 133-450 [facility] HospitalBgrwoxfFCWDEFKADD8537-27-88 18:34:00 Test Item Value Reference Range Interpretation Comments MPV (test code = MPV) 7.6 7.4-10.4 [place] 725552-07-26 18:34:00 Test Item Value Reference Range Interpretation Comments Plt Morph (test code = Normal (06/14/22 1:34 Plt Morph) PM) [facility] HospitalJdzlbvjFMTNPCCDRO7883-34-87 18:34:00 Test Item Value Reference Range Interpretation Comments Segs (test code = Segs) 89.0 45.0-75.0 [place] 725552-07-26 18:34:00 Test Item Value Reference Range Interpretation Comments Bands (test code = 3.0 See_Comment [Automat ed message] The Bands) system which ge nerated this result transmit lavon reference range : <=11.0. The reference r hugo was not used to interpr et this result as dionne l/abnormal. [facility] HospitalWjqypvaLXQPGJFWCI9759-48-72 18:34:00 Test Item Value Reference Range Interpretation Comments Lymphocytes (test code = Lymphocytes) 8.0 20.0-40.0 [place] 725552-07-26 18:34:00 Test Item Value Reference Range Interpretation Comments Monocytes (test code = Monocytes) 0.0 2.0-12.0 [place] 725552-07-26 18:34:00 Test Item Value Reference Range Interpretation Comments Neutrophils # (test code = Neutrophils 12.4 1.5-8.1 #) [place] 725552-07-26 18:34:00 Test Item Value Reference Range Interpretation Comments Lymphocytes # (test code = Lymphocytes 1.1 1.0-5.5 #) [place] [address]-07-26 18:34:00 Test Item Value Reference Range Interpretation Comments Monocytes # (test code 0.0 See_Comment [Aut omated message] The = Monocytes #) system which generated this result tra nsmitted reference range : <=0.8. The reference r hugo was not used to int erpret this result as normal/abnormal . [place] [address]-07-26 18:34:00 Test Item Value Reference Range Interpretation Comments Hypochrom (test code = 1+ (06/14/22 1:34 PM) Hypochrom) [place] [address]-07-26 18:34:00 Test Item Value Reference Range Interpretation Comments Glucose Lvl (test code = Glucose Lvl) 110 70-99 [place] [address]-07-26 18:34:00 Test Item Value Reference Range Interpretation Comments BUN (test code = BUN) 28 - [place] 269192-07-26 18:34:00 Test Item Value Reference Range Interpretation Comments Creatinine Lvl (test code = Creatinine 1.05 0.50-1.40 Lvl) [address]07-26 18:34:00 Test Item Value Reference Range Interpretation Comments Sodium Lvl (test code = Sodium Lvl) 132 135-145 [place] [address]-07-26 18:34:00 Test Item Value Reference Range Interpretation Comments Potassium Lvl (test code = Potassium 4.4 3.5-5.1 Lvl) [place] 269192-07-26 18:34:00 Test Item Value Reference Range Interpretation Comments Chloride Lvl (test code = Chloride Lvl) 96 95-109 [place] [address]-07-26 18:34:00 Test Item Value Reference Range Interpretation Comments CO2 (test code = CO2) 27 24-32 [place] 269192-07-26 18:34:00 Test Item Value Reference Range Interpretation Comments Calcium Lvl (test code = Calcium Lvl) 8.5 8.5-10.5 [place] 269192-07-26 18:34:00 Test Item Value Reference Range Interpretation Comments AGAP (test code = AGAP) 13.4 10.0-20.0 [place] [address]-07-26 18:34:00 Test Item Value Reference Range Interpretation Comments eGFR (test code = eGFR) 51 [place] 725552-07-26 18:34:00 Test Item Value Reference Range Interpretation Comments WBC (test code = WBC) 13.5 3.7-10.4 [place] 725552-07-26 18:34:00 Test Item Value Reference Range Interpretation Comments RBC (test code = RBC) 3.63 4.20-5.40 [place] 725552-07-26 18:34:00 Test Item Value Reference Range Interpretation Comments Hgb (test code = Hgb) 8.7 12.0-16.0 [place] 725552-07-26 18:34:00 Test Item Value Reference Range Interpretation Comments Hct (test code = Hct) 28.2 36.0-48.0 [place] 725552-07-26 18:34:00 Test Item Value Reference Range Interpretation Comments MCV (test code = MCV) 77.5 80.0-98.0 [place] 725552-07-26 18:34:00 Test Item Value Reference Range Interpretation Comments MCH (test code = MCH) 24.0 pg 27.0-31.0 [place] 725552-07-26 18:34:00 Test Item Value Reference Range Interpretation Comments MCHC (test code = MCHC) 30.9 32.0-36.0 [place] 725552-07-26 18:34:00 Test Item Value Reference Range Interpretation Comments RDW (test code = RDW) 21.2 11.5-14.5 [place] 725552-07-26 18:34:00 Test Item Value Reference Range Interpretation Comments Platelet (test code = Platelet) 324 133-450 [facility] HospitalDsisraqMRHXRBSDOR2994-99-25 18:34:00 Test Item Value Reference Range Interpretation Comments MPV (test code = MPV) 7.6 7.4-10.4 [place] 725552-07-26 18:34:00 Test Item Value Reference Range Interpretation Comments Plt Morph (test code = Normal (06/14/22 1:34 Plt Morph) PM) [place] 725552-07-26 18:34:00 Test Item Value Reference Range Interpretation Comments Segs (test code = Segs) 89.0 45.0-75.0 [place] [address]-07-26 18:34:00 Test Item Value Reference Range Interpretation Comments Bands (test code = 3.0 See_Comment [Automat ed message] The Bands) system which ge nerated this result transmit lavon reference range : <=11.0. The reference r hugo was not used to interpr et this result as dionne l/abnormal. [place] [address]-07-26 18:34:00 Test Item Value Reference Range Interpretation Comments Lymphocytes (test code = Lymphocytes) 8.0 20.0-40.0 [place] [address]-07-26 18:34:00 Test Item Value Reference Range Interpretation Comments Monocytes (test code = Monocytes) 0.0 2.0-12.0 [place] [address]-07-26 18:34:00 Test Item Value Reference Range Interpretation Comments Neutrophils # (test code = Neutrophils 12.4 1.5-8.1 #) [place] [address]-07-26 18:34:00 Test Item Value Reference Range Interpretation Comments Lymphocytes # (test code = Lymphocytes 1.1 1.0-5.5 #) [place] [address]-07-26 18:34:00 Test Item Value Reference Range Interpretation Comments Monocytes # (test code 0.0 See_Comment [Aut omated message] The = Monocytes #) system which generated this result tra nsmitted reference range : <=0.8. The reference r hugo was not used to int erpret this result as normal/abnormal . [place] [address]-07-26 18:34:00 Test Item Value Reference Range Interpretation Comments Hypochrom (test code = 1+ (06/14/22 1:34 PM) Hypochrom) [place] 269192-07-26 18:34:00 Test Item Value Reference Range Interpretation Comments Glucose Lvl (test code = Glucose Lvl) 110 70-99 [place] 269192-07-26 18:34:00 Test Item Value Reference Range Interpretation Comments BUN (test code = BUN) 28 - [place] 269192-07-26 18:34:00 Test Item Value Reference Range Interpretation Comments Creatinine Lvl (test code = Creatinine 1.05 0.50-1.40 Lvl) [place] 269192-07-26 18:34:00 Test Item Value Reference Range Interpretation Comments Sodium Lvl (test code = Sodium Lvl) 132 135-145 [place] 269192-07-26 18:34:00 Test Item Value Reference Range Interpretation Comments Potassium Lvl (test code = Potassium 4.4 3.5-5.1 Lvl) [place] 269192-07-26 18:34:00 Test Item Value Reference Range Interpretation Comments Chloride Lvl (test code = Chloride Lvl) 96 95-109 [place] 269192-07-26 18:34:00 Test Item Value Reference Range Interpretation Comments CO2 (test code = CO2) 27 24-32 [place] [address]-07-26 18:34:00 Test Item Value Reference Range Interpretation Comments Calcium Lvl (test code = Calcium Lvl) 8.5 8.5-10.5 [place] 269192-07-26 18:34:00 Test Item Value Reference Range Interpretation Comments AGAP (test code = AGAP) 13.4 10.0-20.0 [place] 269192-07-26 18:34:00 Test Item Value Reference Range Interpretation Comments eGFR (test code = eGFR) 51 [place] 725552-07-26 18:34:00 Test Item Value Reference Range Interpretation Comments WBC (test code = WBC) 13.5 3.7-10.4 [place] 725552-07-26 18:34:00 Test Item Value Reference Range Interpretation Comments RBC (test code = RBC) 3.63 4.20-5.40 [place] [address]-07-26 18:34:00 Test Item Value Reference Range Interpretation Comments Hgb (test code = Hgb) 8.7 12.0-16.0 [place] [address]-07-26 18:34:00 Test Item Value Reference Range Interpretation Comments Hct (test code = Hct) 28.2 36.0-48.0 [place] [address]-07-26 18:34:00 Test Item Value Reference Range Interpretation Comments MCV (test code = MCV) 77.5 80.0-98.0 [place] [address]-07-26 18:34:00 Test Item Value Reference Range Interpretation Comments MCH (test code = MCH) 24.0 pg 27.0-31.0 [place] [address]-07-26 18:34:00 Test Item Value Reference Range Interpretation Comments MCHC (test code = MCHC) 30.9 32.0-36.0 [place] [address]-07-26 18:34:00 Test Item Value Reference Range Interpretation Comments RDW (test code = RDW) 21.2 11.5-14.5 [place] 725552-07-26 18:34:00 Test Item Value Reference Range Interpretation Comments Platelet (test code = Platelet) 324 133-450 [facility] HospitalGxscmucMGQLFLBFZY9066-81-60 18:34:00 Test Item Value Reference Range Interpretation Comments MPV (test code = MPV) 7.6 7.4-10.4 [place] 725552-07-26 18:34:00 Test Item Value Reference Range Interpretation Comments Plt Morph (test code = Normal (06/14/22 1:34 Plt Morph) PM) [facility] HospitalKrsukbtCHMOIESSQU6186-70-12 18:34:00 Test Item Value Reference Range Interpretation Comments Segs (test code = Segs) 89.0 45.0-75.0 [place] 725552-07-26 18:34:00 Test Item Value Reference Range Interpretation Comments Bands (test code = 3.0 See_Comment [Automat ed message] The Bands) system which ge nerated this result transmit lavon reference range : <=11.0. The reference r hugo was not used to interpr et this result as dionne l/abnormal. [facility] HospitalTslrswvKWQRNRPEER8139-97-01 18:34:00 Test Item Value Reference Range Interpretation Comments Lymphocytes (test code = Lymphocytes) 8.0 20.0-40.0 [place] 725552-07-26 18:34:00 Test Item Value Reference Range Interpretation Comments Monocytes (test code = Monocytes) 0.0 2.0-12.0 [place] 725552-07-26 18:34:00 Test Item Value Reference Range Interpretation Comments Neutrophils # (test code = Neutrophils 12.4 1.5-8.1 #) [place] 725552-07-26 18:34:00 Test Item Value Reference Range Interpretation Comments Lymphocytes # (test code = Lymphocytes 1.1 1.0-5.5 #) [place] [address]-07-26 18:34:00 Test Item Value Reference Range Interpretation Comments Monocytes # (test code 0.0 See_Comment [Aut omated message] The = Monocytes #) system which generated this result tra nsmitted reference range : <=0.8. The reference r hugo was not used to int erpret this result as normal/abnormal . [place] [address]-07-26 18:34:00 Test Item Value Reference Range Interpretation Comments Hypochrom (test code = 1+ (06/14/22 1:34 PM) Hypochrom) [facility]2022-07-25 15:00:00 Test Item Value Reference Range Interpretation Comments Albumin BF (test code = Albumin BF) 0.6 [facility]2022-07-25 15:00:00 Test Item Value Reference Range Interpretation Comments Alb BF Type (test Pleural *NA*(06/13/22 code = Alb BF Type) 10:00 AM) [facility]2022-07-25 15:00:00 Test Item Value Reference Range Interpretation Comments CellCnt BF Type (test Thoracen (06/13/22 10:00 code = CellCnt BF AM) Type) [facility]2022-07-25 15:00:00 Test Item Value Reference Range Interpretation Comments Color BF (test code = Yellow (06/13/22 10:00 Color BF) AM) [facility]2022-07-25 15:00:00 Test Item Value Reference Range Interpretation Comments Clarity BF (test code = Clear (06/13/22 10:00 Clarity BF) AM) [facility]2022-07-25 15:00:00 Test Item Value Reference Range Interpretation Comments Supernat BF (test code = Yellow *ABN*(06/13/22 Supernat BF) 10:00 AM) [facility]2022-07-25 15:00:00 Test Item Value Reference Range Interpretation Comments Nucleated Cells BF (test code = 273 Nucleated Cells BF) [facility]2022-07-25 15:00:00 Test Item Value Reference Range Interpretation Comments RBC BF (test code = RBC BF) 419 [facility]2022-07-25 15:00:00 Test Item Value Reference Range Interpretation Comments Neutrophils BF (test code = Neutrophils 10 BF) [facility]2022-07-25 15:00:00 Test Item Value Reference Range Interpretation Comments Lymph BF (test code = Lymph BF) 36 [facility]2022-07-25 15:00:00 Test Item Value Reference Range Interpretation Comments Macrophage BF (test code = Macrophage 48 BF) [facility]2022-07-25 15:00:00 Test Item Value Reference Range Interpretation Comments Meso BF (test code = Meso BF) 6 [facility] [id number] 15:00:00 Test Item Value Reference Range Interpretation Comments Comment BF (test Differential confirmed. code = Comment BF) mesothlial cells and mixed inflammation. performed by Dr. Rosendo Chapa [facility]2022-07-25 15:00:00 Test Item Value Reference Range Interpretation Comments Glucose BF (test code = Glucose BF) 154 [facility] [id number] 15:00:00 Test Item Value Reference Range Interpretation Comments Gluc BF Type (test Pleural *NA*(06/13/22 code = Gluc BF Type) 10:00 AM) [facility]2022-07-25 15:00:00 Test Item Value Reference Range Interpretation Comments LDH BF (test code = LDH BF) 74 [facility]2022-07-25 15:00:00 Test Item Value Reference Range Interpretation Comments LDH BF Type (test Pleural *NA*(06/13/22 code = LDH BF Type) 10:00 AM) [facility] [id number] 15:00:00 Test Item Value Reference Range Interpretation Comments pH BF Type (test code Pleural (06/13/22 10:00 = pH BF Type) AM) [facility]2022-07-25 15:00:00 Test Item Value Reference Range Interpretation Comments pH BF (test code = pH BF) 8.00 1 [facility] [id number] 15:00:00 Test Item Value Reference Range Interpretation Comments Protein BF (test code = Protein BF) 1.0 [facility] [id number] 15:00:00 Test Item Value Reference Range Interpretation Comments Prot BF Type (test Pleural *NA*(06/13/22 code = Prot BF Type) 10:00 AM) [facility] [id number] 15:00:00 Test Item Value Reference Range Interpretation Comments Gram Stain Report Few WBC's No Organisms (test code = Gram Seen Stain Report) [facility] Fluid/[id number] 15:00:00 Test Item Value Reference Range Interpretation Comments Culture: Aspirate/Body Fluid/Tissue No Growth (test code = Culture: Aspirate/Body Fluid/Tissue) [facility]2022-07-25 15:00:00 Test Item Value Reference Range Interpretation Comments Albumin BF (test code = Albumin BF) 0.6 [facility]2022-07-25 15:00:00 Test Item Value Reference Range Interpretation Comments Alb BF Type (test Pleural *NA*(06/13/22 code = Alb BF Type) 10:00 AM) [facility]2022-07-25 15:00:00 Test Item Value Reference Range Interpretation Comments CellCnt BF Type (test Thoracen (06/13/22 10:00 code = CellCnt BF AM) Type) [facility]2022-07-25 15:00:00 Test Item Value Reference Range Interpretation Comments Color BF (test code = Yellow (06/13/22 10:00 Color BF) AM) [facility]2022-07-25 15:00:00 Test Item Value Reference Range Interpretation Comments Clarity BF (test code = Clear (06/13/22 10:00 Clarity BF) AM) [facility]2022-07-25 15:00:00 Test Item Value Reference Range Interpretation Comments Supernat BF (test code = Yellow *ABN*(06/13/22 Supernat BF) 10:00 AM) [facility]2022-07-25 15:00:00 Test Item Value Reference Range Interpretation Comments Nucleated Cells BF (test code = 273 Nucleated Cells BF) [facility]2022-07-25 15:00:00 Test Item Value Reference Range Interpretation Comments RBC BF (test code = RBC BF) 419 [facility]2022-07-25 15:00:00 Test Item Value Reference Range Interpretation Comments Neutrophils BF (test code = Neutrophils 10 BF) [facility]2022-07-25 15:00:00 Test Item Value Reference Range Interpretation Comments Lymph BF (test code = Lymph BF) 36 [facility]2022-07-25 15:00:00 Test Item Value Reference Range Interpretation Comments Macrophage BF (test code = Macrophage 48 BF) [facility]2022-07-25 15:00:00 Test Item Value Reference Range Interpretation Comments Meso BF (test code = Meso BF) 6 [facility]2022-07-25 15:00:00 Test Item Value Reference Range Interpretation Comments Comment BF (test Differential confirmed. code = Comment BF) mesothlial cells and mixed inflammation. performed by Dr. Rosendo Chapa [facility] [id number] 15:00:00 Test Item Value Reference Range Interpretation Comments Glucose BF (test code = Glucose BF) 154 [facility] [id number] 15:00:00 Test Item Value Reference Range Interpretation Comments Gluc BF Type (test Pleural *NA*(06/13/22 code = Gluc BF Type) 10:00 AM) [facility]2022-07-25 15:00:00 Test Item Value Reference Range Interpretation Comments LDH BF (test code = LDH BF) 74 [facility] [id number] 15:00:00 Test Item Value Reference Range Interpretation Comments LDH BF Type (test Pleural *NA*(06/13/22 code = LDH BF Type) 10:00 AM) [facility]2022-07-25 15:00:00 Test Item Value Reference Range Interpretation Comments pH BF Type (test code Pleural (06/13/22 10:00 = pH BF Type) AM) [facility]2022-07-25 15:00:00 Test Item Value Reference Range Interpretation Comments pH BF (test code = pH BF) 8.00 1 [facility] [id number] 15:00:00 Test Item Value Reference Range Interpretation Comments Protein BF (test code = Protein BF) 1.0 [facility]2022-07-25 15:00:00 Test Item Value Reference Range Interpretation Comments Prot BF Type (test Pleural *NA*(06/13/22 code = Prot BF Type) 10:00 AM) [facility] [id number] 15:00:00 Test Item Value Reference Range Interpretation Comments Gram Stain Report Few WBC's No Organisms (test code = Gram Seen Stain Report) [facility] Aspirate/Body Fluid/[id number] 15:00:00 Test Item Value Reference Range Interpretation Comments Culture: Aspirate/Body Fluid/Tissue No Growth (test code = Culture: Aspirate/Body Fluid/Tissue) [facility] [id number] 15:00:00 Test Item Value Reference Range Interpretation Comments Albumin BF (test code = Albumin BF) 0.6 [facility]2022-07-25 15:00:00 Test Item Value Reference Range Interpretation Comments Alb BF Type (test Pleural *NA*(06/13/22 code = Alb BF Type) 10:00 AM) [facility]2022-07-25 15:00:00 Test Item Value Reference Range Interpretation Comments CellCnt BF Type (test Thoracen (06/13/22 10:00 code = CellCnt BF AM) Type) [facility]2022-07-25 15:00:00 Test Item Value Reference Range Interpretation Comments Color BF (test code = Yellow (06/13/22 10:00 Color BF) AM) [facility]2022-07-25 15:00:00 Test Item Value Reference Range Interpretation Comments Clarity BF (test code = Clear (06/13/22 10:00 Clarity BF) AM) [facility]2022-07-25 15:00:00 Test Item Value Reference Range Interpretation Comments Supernat BF (test code = Yellow *ABN*(06/13/22 Supernat BF) 10:00 AM) [facility]2022-07-25 15:00:00 Test Item Value Reference Range Interpretation Comments Nucleated Cells BF (test code = 273 Nucleated Cells BF) [facility]2022-07-25 15:00:00 Test Item Value Reference Range Interpretation Comments RBC BF (test code = RBC BF) 419 [facility]2022-07-25 15:00:00 Test Item Value Reference Range Interpretation Comments Neutrophils BF (test code = Neutrophils 10 BF) [facility]2022-07-25 15:00:00 Test Item Value Reference Range Interpretation Comments Lymph BF (test code = Lymph BF) 36 [facility]2022-07-25 15:00:00 Test Item Value Reference Range Interpretation Comments Macrophage BF (test code = Macrophage 48 BF) [facility]2022-07-25 15:00:00 Test Item Value Reference Range Interpretation Comments Meso BF (test code = Meso BF) 6 [facility]2022-07-25 15:00:00 Test Item Value Reference Range Interpretation Comments Comment BF (test Differential confirmed. code = Comment BF) mesothlial cells and mixed inflammation. performed by Dr. Rosendo Chapa [facility]2022-07-25 15:00:00 Test Item Value Reference Range Interpretation Comments Glucose BF (test code = Glucose BF) 154 [facility]2022-07-25 15:00:00 Test Item Value Reference Range Interpretation Comments Gluc BF Type (test Pleural *NA*(06/13/22 code = Gluc BF Type) 10:00 AM) [facility] [id number] 15:00:00 Test Item Value Reference Range Interpretation Comments LDH BF (test code = LDH BF) 74 [facility] [id number] 15:00:00 Test Item Value Reference Range Interpretation Comments LDH BF Type (test Pleural *NA*(06/13/22 code = LDH BF Type) 10:00 AM) [facility] [id number] 15:00:00 Test Item Value Reference Range Interpretation Comments pH BF Type (test code Pleural (06/13/22 10:00 = pH BF Type) AM) [facility] [id number] 15:00:00 Test Item Value Reference Range Interpretation Comments pH BF (test code = pH BF) 8.00 1 [facility] [id number] 15:00:00 Test Item Value Reference Range Interpretation Comments Protein BF (test code = Protein BF) 1.0 [facility] [id number] 15:00:00 Test Item Value Reference Range Interpretation Comments Prot BF Type (test Pleural *NA*(06/13/22 code = Prot BF Type) 10:00 AM) [facility] [id number] 15:00:00 Test Item Value Reference Range Interpretation Comments Gram Stain Report Few WBC's No Organisms (test code = Gram Seen Stain Report) [facility]: Aspirate/Body Fluid/[id number] 15:00:00 Test Item Value Reference Range Interpretation Comments Culture: Aspirate/Body Fluid/Tissue No Growth (test code = Culture: Aspirate/Body Fluid/Tissue) [facility] [id number] 15:00:00 Test Item Value Reference Range Interpretation Comments Albumin BF (test code = Albumin BF) 0.6 [facility] [id number] 15:00:00 Test Item Value Reference Range Interpretation Comments Alb BF Type (test Pleural *NA*(06/13/22 code = Alb BF Type) 10:00 AM) [facility] [id number] 15:00:00 Test Item Value Reference Range Interpretation Comments CellCnt BF Type (test Thoracen (06/13/22 10:00 code = CellCnt BF AM) Type) [facility]2022-07-25 15:00:00 Test Item Value Reference Range Interpretation Comments Color BF (test code = Yellow (06/13/22 10:00 Color BF) AM) [facility]2022-07-25 15:00:00 Test Item Value Reference Range Interpretation Comments Clarity BF (test code = Clear (06/13/22 10:00 Clarity BF) AM) [facility]2022-07-25 15:00:00 Test Item Value Reference Range Interpretation Comments Supernat BF (test code = Yellow *ABN*(06/13/22 Supernat BF) 10:00 AM) [facility]2022-07-25 15:00:00 Test Item Value Reference Range Interpretation Comments Nucleated Cells BF (test code = 273 Nucleated Cells BF) [facility]2022-07-25 15:00:00 Test Item Value Reference Range Interpretation Comments RBC BF (test code = RBC BF) 419 [facility]2022-07-25 15:00:00 Test Item Value Reference Range Interpretation Comments Neutrophils BF (test code = Neutrophils 10 BF) [facility]2022-07-25 15:00:00 Test Item Value Reference Range Interpretation Comments Lymph BF (test code = Lymph BF) 36 [facility]2022-07-25 15:00:00 Test Item Value Reference Range Interpretation Comments Macrophage BF (test code = Macrophage 48 BF) [facility]2022-07-25 15:00:00 Test Item Value Reference Range Interpretation Comments Meso BF (test code = Meso BF) 6 [facility]2022-07-25 15:00:00 Test Item Value Reference Range Interpretation Comments Comment BF (test Differential confirmed. code = Comment BF) mesothlial cells and mixed inflammation. performed by Dr. Rosendo Chapa [facility]2022-07-25 15:00:00 Test Item Value Reference Range Interpretation Comments Glucose BF (test code = Glucose BF) 154 [facility]2022-07-25 15:00:00 Test Item Value Reference Range Interpretation Comments Gluc BF Type (test Pleural *NA*(06/13/22 code = Gluc BF Type) 10:00 AM) [facility]2022-07-25 15:00:00 Test Item Value Reference Range Interpretation Comments LDH BF (test code = LDH BF) 74 [facility] [id number] 15:00:00 Test Item Value Reference Range Interpretation Comments LDH BF Type (test Pleural *NA*(06/13/22 code = LDH BF Type) 10:00 AM) [facility] [id number] 15:00:00 Test Item Value Reference Range Interpretation Comments pH BF Type (test code Pleural (06/13/22 10:00 = pH BF Type) AM) [facility] [id number] 15:00:00 Test Item Value Reference Range Interpretation Comments pH BF (test code = pH BF) 8.00 1 [facility] [id number] 15:00:00 Test Item Value Reference Range Interpretation Comments Protein BF (test code = Protein BF) 1.0 [facility] [id number] 15:00:00 Test Item Value Reference Range Interpretation Comments Prot BF Type (test Pleural *NA*(06/13/22 code = Prot BF Type) 10:00 AM) [facility] [id number] 15:00:00 Test Item Value Reference Range Interpretation Comments Gram Stain Report Few WBC's No Organisms (test code = Gram Seen Stain Report) [facility]: Aspirate/Body Fluid/[id number] 15:00:00 Test Item Value Reference Range Interpretation Comments Culture: Aspirate/Body Fluid/Tissue No Growth (test code = Culture: Aspirate/Body Fluid/Tissue) [facility] [id number] 15:00:00 Test Item Value Reference Range Interpretation Comments Albumin BF (test code = Albumin BF) 0.6 [facility] [id number] 15:00:00 Test Item Value Reference Range Interpretation Comments Alb BF Type (test Pleural *NA*(06/13/22 code = Alb BF Type) 10:00 AM) [facility] [id number] 15:00:00 Test Item Value Reference Range Interpretation Comments CellCnt BF Type (test Thoracen (06/13/22 10:00 code = CellCnt BF AM) Type) [facility] [id number] 15:00:00 Test Item Value Reference Range Interpretation Comments Color BF (test code = Yellow (06/13/22 10:00 Color BF) AM) [facility]2022-07-25 15:00:00 Test Item Value Reference Range Interpretation Comments Clarity BF (test code = Clear (06/13/22 10:00 Clarity BF) AM) [facility]2022-07-25 15:00:00 Test Item Value Reference Range Interpretation Comments Supernat BF (test code = Yellow *ABN*(06/13/22 Supernat BF) 10:00 AM) [facility]2022-07-25 15:00:00 Test Item Value Reference Range Interpretation Comments Nucleated Cells BF (test code = 273 Nucleated Cells BF) [facility]2022-07-25 15:00:00 Test Item Value Reference Range Interpretation Comments RBC BF (test code = RBC BF) 419 [facility]2022-07-25 15:00:00 Test Item Value Reference Range Interpretation Comments Neutrophils BF (test code = Neutrophils 10 BF) [facility]2022-07-25 15:00:00 Test Item Value Reference Range Interpretation Comments Lymph BF (test code = Lymph BF) 36 [facility]2022-07-25 15:00:00 Test Item Value Reference Range Interpretation Comments Macrophage BF (test code = Macrophage 48 BF) [facility]2022-07-25 15:00:00 Test Item Value Reference Range Interpretation Comments Meso BF (test code = Meso BF) 6 [facility]2022-07-25 15:00:00 Test Item Value Reference Range Interpretation Comments Comment BF (test Differential confirmed. code = Comment BF) mesothlial cells and mixed inflammation. performed by Dr. Rosendo Chapa [facility]2022-07-25 15:00:00 Test Item Value Reference Range Interpretation Comments Glucose BF (test code = Glucose BF) 154 [facility]2022-07-25 15:00:00 Test Item Value Reference Range Interpretation Comments Gluc BF Type (test Pleural *NA*(06/13/22 code = Gluc BF Type) 10:00 AM) [facility]2022-07-25 15:00:00 Test Item Value Reference Range Interpretation Comments LDH BF (test code = LDH BF) 74 [facility]2022-07-25 15:00:00 Test Item Value Reference Range Interpretation Comments LDH BF Type (test Pleural *NA*(06/13/22 code = LDH BF Type) 10:00 AM) [facility]ann[facility] [id number] 15:00:00 Test Item Value Reference Range Interpretation Comments pH BF Type (test code Pleural (06/13/22 10:00 = pH BF Type) AM) [facility] [id number] 15:00:00 Test Item Value Reference Range Interpretation Comments pH BF (test code = pH BF) 8.00 1 [facility] [id number] 15:00:00 Test Item Value Reference Range Interpretation Comments Protein BF (test code = Protein BF) 1.0 [facility] [id number] 15:00:00 Test Item Value Reference Range Interpretation Comments Prot BF Type (test Pleural *NA*(06/13/22 code = Prot BF Type) 10:00 AM) [facility] [id number] 15:00:00 Test Item Value Reference Range Interpretation Comments Gram Stain Report Few WBC's No Organisms (test code = Gram Seen Stain Report) [facility]Culture: Aspirate/Body Fluid/[id number] 15:00:00 Test Item Value Reference Range Interpretation Comments Culture: Aspirate/Body Fluid/Tissue No Growth (test code = Culture: Aspirate/Body Fluid/Tissue) [facility] [id number] 15:00:00 Test Item Value Reference Range Interpretation Comments Albumin BF (test code = Albumin BF) 0.6 [facility] [id number] 15:00:00 Test Item Value Reference Range Interpretation Comments Alb BF Type (test Pleural *NA*(06/13/22 code = Alb BF Type) 10:00 AM) [facility] [id number] 15:00:00 Test Item Value Reference Range Interpretation Comments CellCnt BF Type (test Thoracen (06/13/22 10:00 code = CellCnt BF AM) Type) [facility] [id number] 15:00:00 Test Item Value Reference Range Interpretation Comments Color BF (test code = Yellow (06/13/22 10:00 Color BF) AM) [facility] CenterHughes [id number] 15:00:00 Test Item Value Reference Range Interpretation Comments Clarity BF (test code = Clear (06/13/22 10:00 Clarity BF) AM) [facility]2022-07-25 15:00:00 Test Item Value Reference Range Interpretation Comments Supernat BF (test code = Yellow *ABN*(06/13/22 Supernat BF) 10:00 AM) [facility]2022-07-25 15:00:00 Test Item Value Reference Range Interpretation Comments Nucleated Cells BF (test code = 273 Nucleated Cells BF) [facility]2022-07-25 15:00:00 Test Item Value Reference Range Interpretation Comments RBC BF (test code = RBC BF) 419 [facility]2022-07-25 15:00:00 Test Item Value Reference Range Interpretation Comments Neutrophils BF (test code = Neutrophils 10 BF) [facility]2022-07-25 15:00:00 Test Item Value Reference Range Interpretation Comments Lymph BF (test code = Lymph BF) 36 [facility]2022-07-25 15:00:00 Test Item Value Reference Range Interpretation Comments Macrophage BF (test code = Macrophage 48 BF) [facility]2022-07-25 15:00:00 Test Item Value Reference Range Interpretation Comments Meso BF (test code = Meso BF) 6 [facility]2022-07-25 15:00:00 Test Item Value Reference Range Interpretation Comments Comment BF (test Differential confirmed. code = Comment BF) mesothlial cells and mixed inflammation. performed by Dr. Rosendo Chapa [facility]2022-07-25 15:00:00 Test Item Value Reference Range Interpretation Comments Glucose BF (test code = Glucose BF) 154 [facility]2022-07-25 15:00:00 Test Item Value Reference Range Interpretation Comments Gluc BF Type (test Pleural *NA*(06/13/22 code = Gluc BF Type) 10:00 AM) [facility]2022-07-25 15:00:00 Test Item Value Reference Range Interpretation Comments LDH BF (test code = LDH BF) 74 [facility]2022-07-25 15:00:00 Test Item Value Reference Range Interpretation Comments LDH BF Type (test Pleural *NA*(06/13/22 code = LDH BF Type) 10:00 AM) [facility]2022-07-25 15:00:00 Test Item Value Reference Range Interpretation Comments pH BF Type (test code Pleural (06/13/22 10:00 = pH BF Type) AM) [facility] [id number] 15:00:00 Test Item Value Reference Range Interpretation Comments pH BF (test code = pH BF) 8.00 1 [facility] [id number] 15:00:00 Test Item Value Reference Range Interpretation Comments Protein BF (test code = Protein BF) 1.0 [facility] [id number] 15:00:00 Test Item Value Reference Range Interpretation Comments Prot BF Type (test Pleural *NA*(06/13/22 code = Prot BF Type) 10:00 AM) [facility] [id number] 15:00:00 Test Item Value Reference Range Interpretation Comments Gram Stain Report Few WBC's No Organisms (test code = Gram Seen Stain Report) [facility] CenterCulture: Aspirate/Body Fluid/[id number] 15:00:00 Test Item Value Reference Range Interpretation Comments Culture: Aspirate/Body Fluid/Tissue No Growth (test code = Culture: Aspirate/Body Fluid/Tissue) [facility] CenterHor[facility] Technologies [id number] 08:03:00 Test Item Value Reference Range Interpretation Comments Procalcitonin Lvl (test no gt See_Comment [Au tomated message] code = Procalcitonin Lvl) Th e system which generated this result transmitted ref erence range: <=0.10. The reference range was not used to interpr et this result as normal/abnormal . [facility]Mass[facility] [id number] 08:03:00 Test Item Value Reference Range Interpretation Comments LDH (test code = LDH) 354 98-192 [facility] Cent[id number] 08:03:00 Test Item Value Reference Range Interpretation Comments WBC (test code = WBC) 7.5 3.7-10.4 [facility] C[id number] 08:03:00 Test Item Value Reference Range Interpretation Comments RBC (test code = RBC) 3.44 4.20-5.40 [facility] CenterIqamskcHGFRQQXVTC2525-73-69 08:03:00 Test Item Value Reference Range Interpretation Comments Hgb (test code = Hgb) 8.3 12.0-16.0 [facility] [id number] 08:03:00 Test Item Value Reference Range Interpretation Comments Hct (test code = Hct) 26.2 36.0-48.0 [place] [id number] 08:03:00 Test Item Value Reference Range Interpretation Comments MCV (test code = MCV) 76.1 80.0-98.0 [place] [id number] 08:03:00 Test Item Value Reference Range Interpretation Comments MCH (test code = MCH) 24.0 pg 27.0-31.0 [place] [id number] 08:03:00 Test Item Value Reference Range Interpretation Comments MCHC (test code = MCHC) 31.6 32.0-36.0 [place] [id number] 08:03:00 Test Item Value Reference Range Interpretation Comments RDW (test code = RDW) 20.9 11.5-14.5 [place] [id number] 08:03:00 Test Item Value Reference Range Interpretation Comments Platelet (test code = Platelet) 289 133-450 [id number] 08:03:00 Test Item Value Reference Range Interpretation Comments MPV (test code = MPV) 7.5 7.4-10.4 [place] 725552-07-25 08:03:00 Test Item Value Reference Range Interpretation Comments Segs (test code = Segs) 94.0 45.0-75.0 [place] 725552-07-25 08:03:00 Test Item Value Reference Range Interpretation Comments Lymphocytes (test code = Lymphocytes) 4.3 20.0-40.0 [place] 725552-07-25 08:03:00 Test Item Value Reference Range Interpretation Comments Monocytes (test code = Monocytes) 1.6 2.0-12.0 [place] 725552-07-25 08:03:00 Test Item Value Reference Range Interpretation Comments Basophils (test code = 0.1 See_Comment [Aut omated message] The Basophils) system which ge nerated this result tra nsmitted reference range : <=1.0. The reference r hugo was not used to int erpret this result as normal/abnormal . [place] 725552-07-25 08:03:00 Test Item Value Reference Range Interpretation Comments Neutrophils # (test code = Neutrophils 7.0 1.5-8.1 #) [facility] [id number] 08:03:00 Test Item Value Reference Range Interpretation Comments Lymphocytes # (test code = Lymphocytes 0.3 1.0-5.5 #) [facility] C[id number] 08:03:00 Test Item Value Reference Range Interpretation Comments Monocytes # (test code 0.1 See_Comment [Aut omated message] The = Monocytes #) system which generated this result tra nsmitted reference range : <=0.8. The reference r hugo was not used to int erpret this result as normal/abnormal . [facility] CenterUsmcqbjCGJIKDQWHG2819-38-64 08:03:00 Test Item Value Reference Range Interpretation Comments Microcyte (test code = 1+ *ABN*(06/13/22 Microcyte) 3:03 AM) [facility] CenterParty Earth [id number] 08:03:00 Test Item Value Reference Range Interpretation Comments HS Troponin I 1 Hr (test code = HS 50 Troponin I 1 Hr) [facility] CenterTu Closet [place] [employer] [id number] 08:03:00 Test Item Value Reference Range Interpretation Comments HS Troponin I 0 to 1 See Note 5(06/13/22 Hour Delta (test code = 3:03 AM) HS Troponin I 0 to 1 Hour Delta) [facility] [id number] 08:03:00 Test Item Value Reference Range Interpretation Comments Glucose Lvl (test code = Glucose Lvl) 142 70-99 [facility] CenterMass[facility] Fun [id number] 08:03:00 Test Item Value Reference Range Interpretation Comments BUN (test code = BUN) 21 - [facility] [id number] 08:03:00 Test Item Value Reference Range Interpretation Comments Creatinine Lvl (test code = Creatinine 0.84 0.50-1.40 Lvl) [facility]2022-07-25 08:03:00 Test Item Value Reference Range Interpretation Comments Sodium Lvl (test code = Sodium Lvl) 133 135-145 [facility] [id number] 08:03:00 Test Item Value Reference Range Interpretation Comments Potassium Lvl (test code = Potassium 4.4 3.5-5.1 Lvl) [facility] [id number] 08:03:00 Test Item Value Reference Range Interpretation Comments Chloride Lvl (test code = Chloride Lvl) 98 95-109 [place] [id number] 08:03:00 Test Item Value Reference Range Interpretation Comments CO2 (test code = CO2) 25 24-32 [place] 269192-07-25 08:03:00 Test Item Value Reference Range Interpretation Comments AGAP (test code = AGAP) 14.4 10.0-20.0 [place] [id number] 08:03:00 Test Item Value Reference Range Interpretation Comments Calcium Lvl (test code = Calcium Lvl) 9.1 8.5-10.5 [place] 269192-07-25 08:03:00 Test Item Value Reference Range Interpretation Comments B/C Ratio (test code = B/C Ratio) 25 1 6-25 [place] 269192-07-25 08:03:00 Test Item Value Reference Range Interpretation Comments Total Protein (test code = Total 6.7 6.4-8.4 Protein) [place] 269192-07-25 08:03:00 Test Item Value Reference Range Interpretation Comments Albumin Lvl (test code = Albumin Lvl) 3.2 3.5-5.0 [place] 269192-07-25 08:03:00 Test Item Value Reference Range Interpretation Comments Globulin (test code = Globulin) 3.5 2.7-4.2 [place] [place] 269192-[place] 08:03:00 Test Item Value Reference Range Interpretation Comments A/G Ratio (test code = A/G Ratio) 0.9 1 0.7-1.6 [place] 269192-07-25 08:03:00 Test Item Value Reference Range Interpretation Comments ALT (test code = ALT) 19 See_Comment [Auto mated message] The system which ge nerated this result transmit lavon reference range : <=65. The reference range was not used to interpr et this result as dionne l/abnormal. [facility] [id number] 08:03:00 Test Item Value Reference Range Interpretation Comments AST (test code = AST) 26 See_Comment [Auto mated message] The system which ge nerated this result transmit lavon reference range : <=37. The reference range was not used to interpr et this result as dionne l/abnormal. [place] 269192-07-25 08:03:00 Test Item Value Reference Range Interpretation Comments Alk Phos (test code = Alk Phos) 56 39-136 [place] 269192-07-25 08:03:00 Test Item Value Reference Range Interpretation Comments Bili Total (test code = Bili Total) 1.0 0.2-1.3 [place] 269192-07-25 08:03:00 Test Item Value Reference Range Interpretation Comments eGFR (test code = eGFR) 67 [place] 269192-07-25 08:03:00 Test Item Value Reference Range Interpretation Comments Magnesium Lvl (test code = Magnesium 1.9 1.8-2.4 Lvl) [place] 269192-07-25 08:03:00 Test Item Value Reference Range Interpretation Comments Procalcitonin Lvl (test no gt See_Comment [Au tomated message] code = Procalcitonin Lvl) Th e system which generated this result transmitted ref erence range: <=0.10. The reference range was not used to interpr et this result as normal/abnormal . [place] 269192-07-25 08:03:00 Test Item Value Reference Range Interpretation Comments LDH (test code = LDH) 354 98-192 [place] 725552-07-25 08:03:00 Test Item Value Reference Range Interpretation Comments WBC (test code = WBC) 7.5 3.7-10.4 [place] 725552-07-25 08:03:00 Test Item Value Reference Range Interpretation Comments RBC (test code = RBC) 3.44 4.20-5.40 [place] 725552-07-25 08:03:00 Test Item Value Reference Range Interpretation Comments Hgb (test code = Hgb) 8.3 12.0-16.0 [place] [address]-07-25 08:03:00 Test Item Value Reference Range Interpretation Comments Hct (test code = Hct) 26.2 36.0-48.0 [place] [address]-07-25 08:03:00 Test Item Value Reference Range Interpretation Comments MCV (test code = MCV) 76.1 80.0-98.0 [place] [address]-07-25 08:03:00 Test Item Value Reference Range Interpretation Comments MCH (test code = MCH) 24.0 pg 27.0-31.0 [place] 725552-07-25 08:03:00 Test Item Value Reference Range Interpretation Comments MCHC (test code = MCHC) 31.6 32.0-36.0 [place] 725552-07-25 08:03:00 Test Item Value Reference Range Interpretation Comments RDW (test code = RDW) 20.9 11.5-14.5 [place] 725552-07-25 08:03:00 Test Item Value Reference Range Interpretation Comments Platelet (test code = Platelet) 289 133-450 [facility]jqasflCMKLMRHJLR2461-15-70 08:03:00 Test Item Value Reference Range Interpretation Comments MPV (test code = MPV) 7.5 7.4-10.4 [place] 725552-07-25 08:03:00 Test Item Value Reference Range Interpretation Comments Segs (test code = Segs) 94.0 45.0-75.0 [place] 725552-07-25 08:03:00 Test Item Value Reference Range Interpretation Comments Lymphocytes (test code = Lymphocytes) 4.3 20.0-40.0 [place] 725552-07-25 08:03:00 Test Item Value Reference Range Interpretation Comments Monocytes (test code = Monocytes) 1.6 2.0-12.0 [place] [address]-07-25 08:03:00 Test Item Value Reference Range Interpretation Comments Basophils (test code = 0.1 See_Comment [Aut omated message] The Basophils) system which ge nerated this result tra nsmitted reference range : <=1.0. The reference r hugo was not used to int erpret this result as normal/abnormal . [facility] HospitalHvzkpevFJTYWNELEE3518-77-32 08:03:00 Test Item Value Reference Range Interpretation Comments Neutrophils # (test code = Neutrophils 7.0 1.5-8.1 #) [place] 725552-07-25 08:03:00 Test Item Value Reference Range Interpretation Comments Lymphocytes # (test code = Lymphocytes 0.3 1.0-5.5 #) [place] 725552-07-25 08:03:00 Test Item Value Reference Range Interpretation Comments Monocytes # (test code 0.1 See_Comment [Aut omated message] The = Monocytes #) system which generated this result tra nsmitted reference range : <=0.8. The reference r hugo was not used to int erpret this result as normal/abnormal . [facility]uuSBUZRMZPJD0094-[facility] 08:03:00 Test Item Value Reference Range Interpretation Comments Microcyte (test code = 1+ *ABN*(06/13/22 Microcyte) 3:03 AM) [facility] [id number] 08:03:00 Test Item Value Reference Range Interpretation Comments HS Troponin I 1 Hr (test code = HS 50 Troponin I 1 Hr) [facility] [id number] 08:03:00 Test Item Value Reference Range Interpretation Comments HS Troponin I 0 to 1 See Note 5(06/13/22 Hour Delta (test code = 3:03 AM) HS Troponin I 0 to 1 Hour Delta) [facility] [id number] 08:03:00 Test Item Value Reference Range Interpretation Comments Glucose Lvl (test code = Glucose Lvl) 142 70-99 [facility] [id number] 08:03:00 Test Item Value Reference Range Interpretation Comments BUN (test code = BUN) 21 7-22 [facility] [id number] 08:03:00 Test Item Value Reference Range Interpretation Comments Creatinine Lvl (test code = Creatinine 0.84 0.50-1.40 Lvl) [facility] [id number] 08:03:00 Test Item Value Reference Range Interpretation Comments Sodium Lvl (test code = Sodium Lvl) 133 135-145 [facility] [id number] 08:03:00 Test Item Value Reference Range Interpretation Comments Potassium Lvl (test code = Potassium 4.4 3.5-5.1 Lvl) [facility] [id number] 08:03:00 Test Item Value Reference Range Interpretation Comments Chloride Lvl (test code = Chloride Lvl) 98 95-109 [facility] [id number] 08:03:00 Test Item Value Reference Range Interpretation Comments CO2 (test code = CO2) 25 24-32 [facility] [id number] 08:03:00 Test Item Value Reference Range Interpretation Comments AGAP (test code = AGAP) 14.4 10.0-20.0 [facility] [id number] 08:03:00 Test Item Value Reference Range Interpretation Comments Calcium Lvl (test code = Calcium Lvl) 9.1 8.5-10.5 [facility] [id number] 08:03:00 Test Item Value Reference Range Interpretation Comments B/C Ratio (test code = B/C Ratio) 25 1 6-25 [facility] [id number] 08:03:00 Test Item Value Reference Range Interpretation Comments Total Protein (test code = Total 6.7 6.4-8.4 Protein) [facility] [id number] 08:03:00 Test Item Value Reference Range Interpretation Comments Albumin Lvl (test code = Albumin Lvl) 3.2 3.5-5.0 [facility] [id number] 08:03:00 Test Item Value Reference Range Interpretation Comments Globulin (test code = Globulin) 3.5 2.7-4.2 [facility] [id number] 08:03:00 Test Item Value Reference Range Interpretation Comments A/G Ratio (test code = A/G Ratio) 0.9 1 0.7-1.6 [facility] [place] [id number] 08:03:00 Test Item Value Reference Range Interpretation Comments ALT (test code = ALT) 19 See_Comment [Auto mated message] The system which ge nerated this result transmit lavon reference range : <=65. The reference range was not used to interpr et this result as dionne l/abnormal. [facility] [id number] 08:03:00 Test Item Value Reference Range Interpretation Comments AST (test code = AST) 26 See_Comment [Auto mated message] The system which ge nerated this result transmit lavon reference range : <=37. The reference range was not used to interpr et this result as dionne l/abnormal. [facility] [id number] 08:03:00 Test Item Value Reference Range Interpretation Comments Alk Phos (test code = Alk Phos) 56 39-136 [facility] [id number] 08:03:00 Test Item Value Reference Range Interpretation Comments Bili Total (test code = Bili Total) 1.0 0.2-1.3 [place] 269192-07-25 08:03:00 Test Item Value Reference Range Interpretation Comments eGFR (test code = eGFR) 67 [place] 269192-07-25 08:03:00 Test Item Value Reference Range Interpretation Comments Magnesium Lvl (test code = Magnesium 1.9 1.8-2.4 Lvl) [place] 269192-07-25 08:03:00 Test Item Value Reference Range Interpretation Comments Procalcitonin Lvl (test no gt See_Comment [Au tomated message] code = Procalcitonin Lvl) e system which generated this result transmitted ref erence range: <=0.10. The reference range was not used to interpr et this result as normal/abnormal . [place] 269192-07-25 08:03:00 Test Item Value Reference Range Interpretation Comments LDH (test code = LDH) 354 98-192 [place] 725552-07-25 08:03:00 Test Item Value Reference Range Interpretation Comments WBC (test code = WBC) 7.5 3.7-10.4 [place] 725552-07-25 08:03:00 Test Item Value Reference Range Interpretation Comments RBC (test code = RBC) 3.44 4.20-5.40 [place] [address]-07-25 08:03:00 Test Item Value Reference Range Interpretation Comments Hgb (test code = Hgb) 8.3 12.0-16.0 [place] 17455-07-25 08:03:00 Test Item Value Reference Range Interpretation Comments Hct (test code = Hct) 26.2 36.0-48.0 [place] [address]-07-25 08:03:00 Test Item Value Reference Range Interpretation Comments MCV (test code = MCV) 76.1 80.0-98.0 [place] [address]-07-25 08:03:00 Test Item Value Reference Range Interpretation Comments MCH (test code = MCH) 24.0 pg 27.0-31.0 [place] [address]-07-25 08:03:00 Test Item Value Reference Range Interpretation Comments MCHC (test code = MCHC) 31.6 32.0-36.0 [place] [address]-07-25 08:03:00 Test Item Value Reference Range Interpretation Comments RDW (test code = RDW) 20.9 11.5-14.5 [place] [address]-07-25 08:03:00 Test Item Value Reference Range Interpretation Comments Platelet (test code = Platelet) 289 133-450 [place] 725552-07-25 08:03:00 Test Item Value Reference Range Interpretation Comments MPV (test code = MPV) 7.5 7.4-10.4 [place] [address]-07-25 08:03:00 Test Item Value Reference Range Interpretation Comments Segs (test code = Segs) 94.0 45.0-75.0 [place] [address]-07-25 08:03:00 Test Item Value Reference Range Interpretation Comments Lymphocytes (test code = Lymphocytes) 4.3 20.0-40.0 [place] [address]-07-25 08:03:00 Test Item Value Reference Range Interpretation Comments Monocytes (test code = Monocytes) 1.6 2.0-12.0 [place] [address]-07-25 08:03:00 Test Item Value Reference Range Interpretation Comments Basophils (test code = 0.1 See_Comment [Aut omated message] The Basophils) system which ge nerated this result tra nsmitted reference range : <=1.0. The reference r hugo was not used to int erpret this result as normal/abnormal . [place] [address]-07-25 08:03:00 Test Item Value Reference Range Interpretation Comments Neutrophils # (test code = Neutrophils 7.0 1.5-8.1 #) [place] [address]-07-25 08:03:00 Test Item Value Reference Range Interpretation Comments Lymphocytes # (test code = Lymphocytes 0.3 1.0-5.5 #) [place] [address]-07-25 08:03:00 Test Item Value Reference Range Interpretation Comments Monocytes # (test code 0.1 See_Comment [Aut omated message] The = Monocytes #) system which generated this result tra nsmitted reference range : <=0.8. The reference r hugo was not used to int erpret this result as normal/abnormal . [place] [address]-07-25 08:03:00 Test Item Value Reference Range Interpretation Comments Microcyte (test code = 1+ *ABN*(06/13/22 Microcyte) 3:03 AM) [facility] Mi ClosetAC [id number] 08:03:00 Test Item Value Reference Range Interpretation Comments HS Troponin I 1 Hr (test code = HS 50 Troponin I 1 Hr) [facility] [id number] 08:03:00 Test Item Value Reference Range Interpretation Comments HS Troponin I 0 to 1 See Note 5(06/13/22 Hour Delta (test code = 3:03 AM) HS Troponin I 0 to 1 Hour Delta) [facility] [id number] 08:03:00 Test Item Value Reference Range Interpretation Comments Glucose Lvl (test code = Glucose Lvl) 142 70-99 [facility] [id number] 08:03:00 Test Item Value Reference Range Interpretation Comments BUN (test code = BUN) 21 06-10 [facility] [id number] 08:03:00 Test Item Value Reference Range Interpretation Comments Creatinine Lvl (test code = Creatinine 0.84 0.50-1.40 Lvl) [facility] [id number] 08:03:00 Test Item Value Reference Range Interpretation Comments Sodium Lvl (test code = Sodium Lvl) 133 135-145 [facility] [id number] 08:03:00 Test Item Value Reference Range Interpretation Comments Potassium Lvl (test code = Potassium 4.4 3.5-5.1 Lvl) [facility] [id number] 08:03:00 Test Item Value Reference Range Interpretation Comments Chloride Lvl (test code = Chloride Lvl) 98 95-109 [facility] [id number] 08:03:00 Test Item Value Reference Range Interpretation Comments CO2 (test code = CO2) 25 24-32 [facility] [id number] 08:03:00 Test Item Value Reference Range Interpretation Comments AGAP (test code = AGAP) 14.4 10.0-20.0 [facility] [id number] 08:03:00 Test Item Value Reference Range Interpretation Comments Calcium Lvl (test code = Calcium Lvl) 9.1 8.5-10.5 [facility] [id number] 08:03:00 Test Item Value Reference Range Interpretation Comments B/C Ratio (test code = B/C Ratio) 25 1 6-25 [facility] [id number] 08:03:00 Test Item Value Reference Range Interpretation Comments Total Protein (test code = Total 6.7 6.4-8.4 Protein) [facility] [id number] 08:03:00 Test Item Value Reference Range Interpretation Comments Albumin Lvl (test code = Albumin Lvl) 3.2 3.5-5.0 [facility] [id number] 08:03:00 Test Item Value Reference Range Interpretation Comments Globulin (test code = Globulin) 3.5 2.7-4.2 [facility] [id number] 08:03:00 Test Item Value Reference Range Interpretation Comments A/G Ratio (test code = A/G Ratio) 0.9 1 0.7-1.6 [facility] [id number] 08:03:00 Test Item Value Reference Range Interpretation Comments ALT (test code = ALT) 19 See_Comment [Auto mated message] The system which ge nerated this result transmit lavon reference range : <=65. The reference range was not used to interpr et this result as dionne l/abnormal. [facility] [id number] 08:03:00 Test Item Value Reference Range Interpretation Comments AST (test code = AST) 26 See_Comment [Auto mated message] The system which ge nerated this result transmit lavon reference range : <=37. The reference range was not used to interpr et this result as dionne l/abnormal. [facility] [id number] 08:03:00 Test Item Value Reference Range Interpretation Comments Alk Phos (test code = Alk Phos) 56 39-136 [facility] [id number] 08:03:00 Test Item Value Reference Range Interpretation Comments Bili Total (test code = Bili Total) 1.0 0.2-1.3 [facility] [id number] 08:03:00 Test Item Value Reference Range Interpretation Comments eGFR (test code = eGFR) 67 [facility] [id number] 08:03:00 Test Item Value Reference Range Interpretation Comments Magnesium Lvl (test code = Magnesium 1.9 1.8-2.4 Lvl) [facility]2022-07-25 08:03:00 Test Item Value Reference Range Interpretation Comments Procalcitonin Lvl (test no gt See_Comment [Au tomated message] code = Procalcitonin Lvl) Th e system which generated this result transmitted ref erence range: <=0.10. The reference range was not used to interpr et this result as normal/abnormal . [facility]2022-07-25 08:03:00 Test Item Value Reference Range Interpretation Comments LDH (test code = LDH) 354 98-192 [facility] HospitalLebkvrkFZPQEQYDTG4620-44-57 08:03:00 Test Item Value Reference Range Interpretation Comments WBC (test code = WBC) 7.5 3.7-10.4 [facility] HospitalFlgzehaHBPRRLVUPF8963-42-13 08:03:00 Test Item Value Reference Range Interpretation Comments RBC (test code = RBC) 3.44 4.20-5.40 [facility] HospitalTbmhownXXYVJSOMUI7268-46-40 08:03:00 Test Item Value Reference Range Interpretation Comments Hgb (test code = Hgb) 8.3 12.0-16.0 [facility] HospitalJzbscstVRSJKNGVVZ8144-94-54 08:03:00 Test Item Value Reference Range Interpretation Comments Hct (test code = Hct) 26.2 36.0-48.0 [facility] HospitalEzviftoMOIWQDFEBH8211-30-87 08:03:00 Test Item Value Reference Range Interpretation Comments MCV (test code = MCV) 76.1 80.0-98.0 [facility] HospitalMyqwooqDIVXLOKEWR0605-58-92 08:03:00 Test Item Value Reference Range Interpretation Comments MCH (test code = MCH) 24.0 pg 27.0-31.0 [facility] HospitalEjiesstLTTFLBVAVK9649-59-17 08:03:00 Test Item Value Reference Range Interpretation Comments MCHC (test code = MCHC) 31.6 32.0-36.0 [place] 725552-07-25 08:03:00 Test Item Value Reference Range Interpretation Comments RDW (test code = RDW) 20.9 11.5-14.5 [place] 725552-07-25 08:03:00 Test Item Value Reference Range Interpretation Comments Platelet (test code = Platelet) 289 133-450 [facility] HospitalRxfqtafRHTVFXANLW6626-20-38 08:03:00 Test Item Value Reference Range Interpretation Comments MPV (test code = MPV) 7.5 7.4-10.4 [facility] [id number] 08:03:00 Test Item Value Reference Range Interpretation Comments Segs (test code = Segs) 94.0 45.0-75.0 [facility] HospitalEpcnortHJZIRUFKUL8856-95-35 08:03:00 Test Item Value Reference Range Interpretation Comments Lymphocytes (test code = Lymphocytes) 4.3 20.0-40.0 [facility] S[id number] 08:03:00 Test Item Value Reference Range Interpretation Comments Monocytes (test code = Monocytes) 1.6 2.0-12.0 [facility] SystemOzqgqatQCCXLJWXBS8196-23-66 08:03:00 Test Item Value Reference Range Interpretation Comments Basophils (test code = 0.1 See_Comment [Aut omated message] The Basophils) system which ge nerated this result tra nsmitted reference range : <=1.0. The reference r hugo was not used to int erpret this result as normal/abnormal . [facility] SystemFbelkrcCFLEYMDTMU8872-14-34 08:03:00 Test Item Value Reference Range Interpretation Comments Neutrophils # (test code = Neutrophils 7.0 1.5-8.1 #) [facility] SystemZntxqttZSGQFXSGDF4917-29-86 08:03:00 Test Item Value Reference Range Interpretation Comments Lymphocytes # (test code = Lymphocytes 0.3 1.0-5.5 #) [facility] HospitalPgabtxsSHAGPJZYTT3578-77-77 08:03:00 Test Item Value Reference Range Interpretation Comments Monocytes # (test code 0.1 See_Comment [Aut omated message] The = Monocytes #) system which generated this result tra nsmitted reference range : <=0.8. The reference r hugo was not used to int erpret this result as normal/abnormal . [facility] CenterIsyiozxCRGGVJTWLC1399-80-11 08:03:00 Test Item Value Reference Range Interpretation Comments Microcyte (test code = 1+ *ABN*(06/13/22 Microcyte) 3:03 AM) [facility] [id number] 08:03:00 Test Item Value Reference Range Interpretation Comments HS Troponin I 1 Hr (test code = HS 50 Troponin I 1 Hr) [facility] [id number] 08:03:00 Test Item Value Reference Range Interpretation Comments HS Troponin I 0 to 1 See Note 5(06/13/22 Hour Delta (test code = 3:03 AM) HS Troponin I 0 to 1 Hour Delta) [place] 269192-07-25 08:03:00 Test Item Value Reference Range Interpretation Comments Glucose Lvl (test code = Glucose Lvl) 142 70-99 [place] 269192-07-25 08:03:00 Test Item Value Reference Range Interpretation Comments BUN (test code = BUN) 21 06-10 [place] 269192-07-25 08:03:00 Test Item Value Reference Range Interpretation Comments Creatinine Lvl (test code = Creatinine 0.84 0.50-1.40 Lvl) [place] 269192-07-25 08:03:00 Test Item Value Reference Range Interpretation Comments Sodium Lvl (test code = Sodium Lvl) 133 135-145 [place] 269192-07-25 08:03:00 Test Item Value Reference Range Interpretation Comments Potassium Lvl (test code = Potassium 4.4 3.5-5.1 Lvl) [facility]2022-07-25 08:03:00 Test Item Value Reference Range Interpretation Comments Chloride Lvl (test code = Chloride Lvl) 98 95-109 [facility]2022-07-25 08:03:00 Test Item Value Reference Range Interpretation Comments CO2 (test code = CO2) 25 24-32 [place] 269192-07-25 08:03:00 Test Item Value Reference Range Interpretation Comments AGAP (test code = AGAP) 14.4 10.0-20.0 [place] 269192-07-25 08:03:00 Test Item Value Reference Range Interpretation Comments Calcium Lvl (test code = Calcium Lvl) 9.1 8.5-10.5 [place] 269192-07-25 08:03:00 Test Item Value Reference Range Interpretation Comments B/C Ratio (test code = B/C Ratio) 25 1 6-25 [place] 269192-07-25 08:03:00 Test Item Value Reference Range Interpretation Comments Total Protein (test code = Total 6.7 6.4-8.4 Protein) [facility]2022-07-25 08:03:00 Test Item Value Reference Range Interpretation Comments Albumin Lvl (test code = Albumin Lvl) 3.2 3.5-5.0 [facility] CenterH[facility] An EsquireCHERYL [place] [id number] 08:03:00 Test Item Value Reference Range Interpretation Comments Globulin (test code = Globulin) 3.5 2.7-4.2 [place] [address]-07-25 08:03:00 Test Item Value Reference Range Interpretation Comments A/G Ratio (test code = A/G Ratio) 0.9 1 0.7-1.6 [place] [address]-07-25 08:03:00 Test Item Value Reference Range Interpretation Comments ALT (test code = ALT) 19 See_Comment [Auto mated message] The system which ge nerated this result transmit lavon reference range : <=65. The reference range was not used to interpr et this result as dionne l/abnormal. [facility] [id number] 08:03:00 Test Item Value Reference Range Interpretation Comments AST (test code = AST) 26 See_Comment [Auto mated message] The system which ge nerated this result transmit lavon reference range : <=37. The reference range was not used to interpr et this result as dionne l/abnormal. [facility] [id number] 08:03:00 Test Item Value Reference Range Interpretation Comments Alk Phos (test code = Alk Phos) 56 39-136 [facility] [id number] 08:03:00 Test Item Value Reference Range Interpretation Comments Bili Total (test code = Bili Total) 1.0 0.2-1.3 [facility] [id number] 08:03:00 Test Item Value Reference Range Interpretation Comments eGFR (test code = eGFR) 67 [facility] [id number] 08:03:00 Test Item Value Reference Range Interpretation Comments Magnesium Lvl (test code = Magnesium 1.9 1.8-2.4 Lvl) [facility] [id number] 08:03:00 Test Item Value Reference Range Interpretation Comments Procalcitonin Lvl (test no gt See_Comment [Au tomated message] code = Procalcitonin Lvl) Th e system which generated this result transmitted ref erence range: <=0.10. The reference range was not used to interpr et this result as normal/abnormal . [facility]2022-07-25 08:03:00 Test Item Value Reference Range Interpretation Comments LDH (test code = LDH) 354 98-192 [facility] HospitalHusenokXTJLIIBEXK9730-95-83 08:03:00 Test Item Value Reference Range Interpretation Comments WBC (test code = WBC) 7.5 3.7-10.4 [facility] HospitalCbmbsiySKECXVZSHO7311-97-56 08:03:00 Test Item Value Reference Range Interpretation Comments RBC (test code = RBC) 3.44 4.20-5.40 [facility] HospitalSabmipoYWIODBCYYJ7460-70-42 08:03:00 Test Item Value Reference Range Interpretation Comments Hgb (test code = Hgb) 8.3 12.0-16.0 [place] 725552-07-25 08:03:00 Test Item Value Reference Range Interpretation Comments Hct (test code = Hct) 26.2 36.0-48.0 [facility] HospitalVvklgjnVZVJYHSEFJ8314-00-16 08:03:00 Test Item Value Reference Range Interpretation Comments MCV (test code = MCV) 76.1 80.0-98.0 [facility] HospitalMbragkwFPNGWTDUKR3228-25-74 08:03:00 Test Item Value Reference Range Interpretation Comments MCH (test code = MCH) 24.0 pg 27.0-31.0 [facility] HospitalApoycquWGILDPOLYZ5852-98-82 08:03:00 Test Item Value Reference Range Interpretation Comments MCHC (test code = MCHC) 31.6 32.0-36.0 [facility] HospitalHkbpltxFCCUUMJMOF3027-81-24 08:03:00 Test Item Value Reference Range Interpretation Comments RDW (test code = RDW) 20.9 11.5-14.5 [facility] HospitalWnmbqvcIYJNKFBCBW7284-78-92 08:03:00 Test Item Value Reference Range Interpretation Comments Platelet (test code = Platelet) 289 133-450 [facility] HospitalBgwmbkxGDABXUBGSL4513-26-21 08:03:00 Test Item Value Reference Range Interpretation Comments MPV (test code = MPV) 7.5 7.4-10.4 [place] 725552-07-25 08:03:00 Test Item Value Reference Range Interpretation Comments Segs (test code = Segs) 94.0 45.0-75.0 [place] 725552-07-25 08:03:00 Test Item Value Reference Range Interpretation Comments Lymphocytes (test code = Lymphocytes) 4.3 20.0-40.0 [facility] CenterAenwsbbMYDQKOWZDQ3628-78-63 08:03:00 Test Item Value Reference Range Interpretation Comments Monocytes (test code = Monocytes) 1.6 2.0-12.0 [facility] HospitalFuwappbYJTMGUGVVI2556-95-34 08:03:00 Test Item Value Reference Range Interpretation Comments Basophils (test code = 0.1 See_Comment [Aut omated message] The Basophils) system which ge nerated this result tra nsmitted reference range : <=1.0. The reference r hugo was not used to int erpret this result as normal/abnormal . [facility] CenterTrqbugeSDFMPMKXSI7773-99-40 08:03:00 Test Item Value Reference Range Interpretation Comments Neutrophils # (test code = Neutrophils 7.0 1.5-8.1 #) [facility] HospitalSncmwapSYUQLSUPGY7609-29-36 08:03:00 Test Item Value Reference Range Interpretation Comments Lymphocytes # (test code = Lymphocytes 0.3 1.0-5.5 #) [facility] CenterCswgatiISARLTZHAC6109-78-59 08:03:00 Test Item Value Reference Range Interpretation Comments Monocytes # (test code 0.1 See_Comment [Aut omated message] The = Monocytes #) system which generated this result tra nsmitted reference range : <=0.8. The reference r hugo was not used to int erpret this result as normal/abnormal . [facility] CenterZyizlppZACWTAKSAZ6303-18-75 08:03:00 Test Item Value Reference Range Interpretation Comments Microcyte (test code = 1+ *ABN*(06/13/22 Microcyte) 3:03 AM) [facility] 08:03:00 Test Item Value Reference Range Interpretation Comments HS Troponin I 1 Hr (test code = HS 50 Troponin I 1 Hr) [facility] 08:03:00 Test Item Value Reference Range Interpretation Comments HS Troponin I 0 to 1 See Note 5(06/13/22 Hour Delta (test code = 3:03 AM) HS Troponin I 0 to 1 Hour Delta) [facility]2022-07-25 08:03:00 Test Item Value Reference Range Interpretation Comments Glucose Lvl (test code = Glucose Lvl) 142 70-99 [facility]2022-07-25 08:03:00 Test Item Value Reference Range Interpretation Comments BUN (test code = BUN) 21 7-22 [place] 269192-07-25 08:03:00 Test Item Value Reference Range Interpretation Comments Creatinine Lvl (test code = Creatinine 0.84 0.50-1.40 Lvl) [facility]2022-07-25 08:03:00 Test Item Value Reference Range Interpretation Comments Sodium Lvl (test code = Sodium Lvl) 133 135-145 [place] 269192-07-25 08:03:00 Test Item Value Reference Range Interpretation Comments Potassium Lvl (test code = Potassium 4.4 3.5-5.1 Lvl) [facility] CenterHire An EsquireBLUE [facility] HOSPITALRNNLI8910-29-46 08:03:00 Test Item Value Reference Range Interpretation Comments Chloride Lvl (test code = Chloride Lvl) 98 95-109 [facility]2022-07-25 08:03:00 Test Item Value Reference Range Interpretation Comments CO2 (test code = CO2) 24-32 [place] 269192-07-25 08:03:00 Test Item Value Reference Range Interpretation Comments AGAP (test code = AGAP) 14.4 10.0-20.0 [facility]2022-07-25 08:03:00 Test Item Value Reference Range Interpretation Comments Calcium Lvl (test code = Calcium Lvl) 9.1 8.5-10.5 [facility]2022-07-25 08:03:00 Test Item Value Reference Range Interpretation Comments B/C Ratio (test code = B/C Ratio) 25 1 6-25 [place] 269192-07-25 08:03:00 Test Item Value Reference Range Interpretation Comments Total Protein (test code = Total 6.7 6.4-8.4 Protein) [place] 269192-07-25 08:03:00 Test Item Value Reference Range Interpretation Comments Albumin Lvl (test code = Albumin Lvl) 3.2 3.5-5.0 [place] 269192-07-25 08:03:00 Test Item Value Reference Range Interpretation Comments Globulin (test code = Globulin) 3.5 2.7-4.2 [place] 269192-07-25 08:03:00 Test Item Value Reference Range Interpretation Comments A/G Ratio (test code = A/G Ratio) 0.9 1 0.7-1.6 [facility] [id number] 08:03:00 Test Item Value Reference Range Interpretation Comments ALT (test code = ALT) 19 See_Comment [Auto mated message] The system which ge nerated this result transmit lavon reference range : <=65. The reference range was not used to interpr et this result as dionne l/abnormal. [facility] [place] [id number] 08:03:00 Test Item Value Reference Range Interpretation Comments AST (test code = AST) 26 See_Comment [Auto mated message] The system which ge nerated this result transmit lavon reference range : <=37. The reference range was not used to interpr et this result as dionne l/abnormal. [facility] CenterMassively Fun JJDFQ5849-25-36 08:03:00 Test Item Value Reference Range Interpretation Comments Alk Phos (test code = Alk Phos) 56 39-136 [facility] [id number] 08:03:00 Test Item Value Reference Range Interpretation Comments Bili Total (test code = Bili Total) 1.0 0.2-1.3 [facility] [id number] 08:03:00 Test Item Value Reference Range Interpretation Comments eGFR (test code = eGFR) 67 [facility] VBIPZ3575-45-15 08:03:00 Test Item Value Reference Range Interpretation Comments Magnesium Lvl (test code = Magnesium 1.9 1.8-2.4 Lvl) [facility] CenterMass[facility] Fun SBCNT3912-10-69 08:03:00 Test Item Value Reference Range Interpretation Comments Procalcitonin Lvl (test no gt See_Comment [Au tomated message] code = Procalcitonin Lvl) Th e system which generated this result transmitted ref erence range: <=0.10. The reference range was not used to interpr et this result as normal/abnormal . [facility] [id number] 08:03:00 Test Item Value Reference Range Interpretation Comments LDH (test code = LDH) 354 98-192 [facility] CenterZkirtiuYOUMFQMMUM4694-81-88 08:03:00 Test Item Value Reference Range Interpretation Comments WBC (test code = WBC) 7.5 3.7-10.4 [facility] HospitalZgffhsmXOYFOFUHNK6203-73-06 08:03:00 Test Item Value Reference Range Interpretation Comments RBC (test code = RBC) 3.44 4.20-5.40 [place] 725552-07-25 08:03:00 Test Item Value Reference Range Interpretation Comments Hgb (test code = Hgb) 8.3 12.0-16.0 [place] 725552-07-25 08:03:00 Test Item Value Reference Range Interpretation Comments Hct (test code = Hct) 26.2 36.0-48.0 [place] 725552-07-25 08:03:00 Test Item Value Reference Range Interpretation Comments MCV (test code = MCV) 76.1 80.0-98.0 [place] 725552-07-25 08:03:00 Test Item Value Reference Range Interpretation Comments MCH (test code = MCH) 24.0 pg 27.0-31.0 [place] 725552-07-25 08:03:00 Test Item Value Reference Range Interpretation Comments MCHC (test code = MCHC) 31.6 32.0-36.0 [facility] HospitalCaughdpIAEHITSPSN4293-71-13 08:03:00 Test Item Value Reference Range Interpretation Comments RDW (test code = RDW) 20.9 11.5-14.5 [place] 725552-07-25 08:03:00 Test Item Value Reference Range Interpretation Comments Platelet (test code = Platelet) 289 133-450 [facility] HospitalVmxwmelIBABHLGOPJ9586-75-48 08:03:00 Test Item Value Reference Range Interpretation Comments MPV (test code = MPV) 7.5 7.4-10.4 [place] 725552-07-25 08:03:00 Test Item Value Reference Range Interpretation Comments Segs (test code = Segs) 94.0 45.0-75.0 [place] 725552-07-25 08:03:00 Test Item Value Reference Range Interpretation Comments Lymphocytes (test code = Lymphocytes) 4.3 20.0-40.0 [place] 725552-07-25 08:03:00 Test Item Value Reference Range Interpretation Comments Monocytes (test code = Monocytes) 1.6 2.0-12.0 [place] 725552-07-25 08:03:00 Test Item Value Reference Range Interpretation Comments Basophils (test code = 0.1 See_Comment [Aut omated message] The Basophils) system which ge nerated this result tra nsmitted reference range : <=1.0. The reference r hguo was not used to int erpret this result as normal/abnormal . [facility] JjdblyrSQWYTAVEPI8806-66-39 08:03:00 Test Item Value Reference Range Interpretation Comments Neutrophils # (test code = Neutrophils 7.0 1.5-8.1 #) [facility] CenterUwucmycEINXBJOMAE8416-58-89 08:03:00 Test Item Value Reference Range Interpretation Comments Lymphocytes # (test code = Lymphocytes 0.3 1.0-5.5 #) [facility] CenterGejiegsGVYAIYFKUS7843-59-04 08:03:00 Test Item Value Reference Range Interpretation Comments Monocytes # (test code 0.1 See_Comment [Aut omated message] The = Monocytes #) system which generated this result tra nsmitted reference range : <=0.8. The reference r hugo was not used to int erpret this result as normal/abnormal . [facility] CenterXvucutxAKTSXLZTPL4061-92-76 08:03:00 Test Item Value Reference Range Interpretation Comments Microcyte (test code = 1+ *ABN*(06/13/22 Microcyte) 3:03 AM) [facility]2022-07-25 08:03:00 Test Item Value Reference Range Interpretation Comments HS Troponin I 1 Hr (test code = HS 50 Troponin I 1 Hr) [facility] 08:03:00 Test Item Value Reference Range Interpretation Comments HS Troponin I 0 to 1 See Note 5(06/13/22 Hour Delta (test code = 3:03 AM) HS Troponin I 0 to 1 Hour Delta) [facility] Leadjini2-07-25 08:03:00 Test Item Value Reference Range Interpretation Comments Glucose Lvl (test code = Glucose Lvl) 142 70-99 [facility]2022-07-25 08:03:00 Test Item Value Reference Range Interpretation Comments BUN (test code = BUN) 21 06-10 [facility] KOPZW2245-03-15 08:03:00 Test Item Value Reference Range Interpretation Comments Creatinine Lvl (test code = Creatinine 0.84 0.50-1.40 Lvl) [facility] Leadjini2-07-25 08:03:00 Test Item Value Reference Range Interpretation Comments Sodium Lvl (test code = Sodium Lvl) 133 135-145 [place] 269192-07-25 08:03:00 Test Item Value Reference Range Interpretation Comments Potassium Lvl (test code = Potassium 4.4 3.5-5.1 Lvl) [facility]2022-07-25 08:03:00 Test Item Value Reference Range Interpretation Comments Chloride Lvl (test code = Chloride Lvl) 98 95-109 [place] 269192-07-25 08:03:00 Test Item Value Reference Range Interpretation Comments CO2 (test code = CO2) 25 24-32 [place] 269192-07-25 08:03:00 Test Item Value Reference Range Interpretation Comments AGAP (test code = AGAP) 14.4 10.0-20.0 [place] 269192-07-25 08:03:00 Test Item Value Reference Range Interpretation Comments Calcium Lvl (test code = Calcium Lvl) 9.1 8.5-10.5 [place] 269192-07-25 08:03:00 Test Item Value Reference Range Interpretation Comments B/C Ratio (test code = B/C Ratio) 25 1 6-25 [place] 269192-07-25 08:03:00 Test Item Value Reference Range Interpretation Comments Total Protein (test code = Total 6.7 6.4-8.4 Protein) [facility]2022-07-25 08:03:00 Test Item Value Reference Range Interpretation Comments Albumin Lvl (test code = Albumin Lvl) 3.2 3.5-5.0 [place] 269192-07-25 08:03:00 Test Item Value Reference Range Interpretation Comments Globulin (test code = Globulin) 3.5 2.7-4.2 [place] 269192-07-25 08:03:00 Test Item Value Reference Range Interpretation Comments A/G Ratio (test code = A/G Ratio) 0.9 1 0.7-1.6 [place] 269192-07-25 08:03:00 Test Item Value Reference Range Interpretation Comments ALT (test code = ALT) 19 See_Comment [Auto mated message] The system which ge nerated this result transmit lavon reference range : <=65. The reference range was not used to interpr et this result as dionne l/abnormal. [facility] [place] [id number] 08:03:00 Test Item Value Reference Range Interpretation Comments AST (test code = AST) 26 See_Comment [Auto mated message] The system which ge nerated this result transmit lavon reference range : <=37. The reference range was not used to interpr et this result as dionne l/abnormal. [facility] [place] [id number] 08:03:00 Test Item Value Reference Range Interpretation Comments Alk Phos (test code = Alk Phos) 56 39-136 [facility] [place] [id number] 08:03:00 Test Item Value Reference Range Interpretation Comments Bili Total (test code = Bili Total) 1.0 0.2-1.3 [facility] [place] [id number] 08:03:00 Test Item Value Reference Range Interpretation Comments eGFR (test code = eGFR) 67 [facility] [place] [id number] 08:03:00 Test Item Value Reference Range Interpretation Comments Magnesium Lvl (test code = Magnesium 1.9 1.8-2.4 Lvl) [facility] 07:27:00 Test Item Value Reference Range Interpretation Comments HS Troponin I Baseline (test code = HS 46 Troponin I Baseline) [facility] 07:27:00 Test Item Value Reference Range Interpretation Comments HS Troponin I Baseline (test code = HS 46 Troponin I Baseline) [facility] IV[employer]kAC YVTTGUE3557-27-14 07:27:00 Test Item Value Reference Range Interpretation Comments HS Troponin I Baseline (test code = HS 46 Troponin I Baseline) [facility] CenterTu Closet Mi ClosetAC NFSKYRG5653-12-05 07:27:00 Test Item Value Reference Range Interpretation Comments HS Troponin I Baseline (test code = HS 46 Troponin I Baseline) [facility] CenterTu Closet Mi ClosetAC KHQCQSV7015-71-67 07:27:00 Test Item Value Reference Range Interpretation Comments HS Troponin I Baseline (test code = HS 46 Troponin I Baseline) [facility] CenterTu Closet Mi ClosetAC [id number] 07:27:00 Test Item Value Reference Range Interpretation Comments HS Troponin I Baseline (test code = HS 46 Troponin I Baseline) [facility] CenterTu Closet Mi ClosetAC [id number] 04:26:00 Test Item Value Reference Range Interpretation Comments HS Troponin I (test code = HS Troponin 46 I) [facility] BOASGAP3723-29-21 04:26:00 Test Item Value Reference Range Interpretation Comments BNP (test code = BNP) [facility]51 [facility]UbwdesoIKBQVVEUJO4443-41-38 04:26:00 Test Item Value Reference Range Interpretation Comments Coronavirus (COVID-19) Not Detected (06/12/22 DEJUAN (test code = 11:26 PM) Coronavirus (COVID-19) DEJUAN) [facility] [id number] 04:26:00 Test Item Value Reference Range Interpretation Comments HS Troponin I (test code = HS Troponin 46 I) [facility] [id number] 04:26:00 Test Item Value Reference Range Interpretation Comments BNP (test code = BNP) 85 [facility] BrookDyywivlQTTLJRUGVI6150-67-40 04:26:00 Test Item Value Reference Range Interpretation Comments Coronavirus (COVID-19) Not Detected (06/12/22 DEJUAN (test code = 11:26 PM) Coronavirus (COVID-19) DEJUAN) [facility] [id number] 04:26:00 Test Item Value Reference Range Interpretation Comments HS Troponin I (test code = HS Troponin 46 I) [facility] [id number] 04:26:00 Test Item Value Reference Range Interpretation Comments BNP (test code = BNP) [facility]51 [facility]OeipbwzBHKKQQPXGL8198-92-60 04:26:00 Test Item Value Reference Range Interpretation Comments Coronavirus (COVID-19) Not Detected (06/12/22 DEJUAN (test code = 11:26 PM) Coronavirus (COVID-19) DEUJAN) [facility] CenterBtiquesUOFL [facility] UJHIQJH9455-08-70 04:26:00 Test Item Value Reference Range Interpretation Comments HS Troponin I (test code = HS Troponin 46 I) [facility] JEHAVBN6513-13-04 04:26:00 Test Item Value Reference Range Interpretation Comments BNP (test code = BNP) 851 [facility] BrookEsiswusOTHDYIQFTZ9868-06-19 04:26:00 Test Item Value Reference Range Interpretation Comments Coronavirus (COVID-19) Not Detected (06/12/22 DEJUAN (test code = 11:26 PM) Coronavirus (COVID-19) DEJUAN) [facility] [employer] [id number] 04:26:00 Test Item Value Reference Range Interpretation Comments HS Troponin I (test code = HS Troponin 46 I) [facility] [employer] [id number] 04:26:00 Test Item Value Reference Range Interpretation Comments BNP (test code = BNP) 851 [facility] WwbtwsxWGSMEYGCZN7743-02-17 04:26:00 Test Item Value Reference Range Interpretation Comments Coronavirus (COVID-19) Not Detected (06/12/22 DEJUAN (test code = 11:26 PM) Coronavirus (COVID-19) DEJUAN) [facility] [employer] [id number] 04:26:00 Test Item Value Reference Range Interpretation Comments HS Troponin I (test code = HS Troponin 46 I) [facility] [employer] XDNKIQZ0564-07-96 04:26:00 Test Item Value Reference Range Interpretation Comments BNP (test code = BNP) 851 [facility] LpguwzxJTYTROCEYA9462-26-14 04:26:00 Test Item Value Reference Range Interpretation Comments Coronavirus (COVID-19) Not Detected (06/12/22 DEJUAN (test code = 11:26 PM) Coronavirus (COVID-19) DEJUAN) [facility] [employer]2022-07-25 02:20:00 Test Item Value Reference Range Interpretation Comments HS Troponin I (test code = HS Troponin 52 I) [facility] [place] [id number] 02:20:00 Test Item Value Reference Range Interpretation Comments Glucose Lvl (test code = Glucose Lvl) 103 70-99 [facility] [place] [id number] 02:20:00 Test Item Value Reference Range Interpretation Comments BUN (test code = BUN) 22 7- [facility] [place] [id number] 02:20:00 Test Item Value Reference Range Interpretation Comments Creatinine Lvl (test code = Creatinine 0.90 0.50-1.40 Lvl) [facility]2022-07-25 02:20:00 Test Item Value Reference Range Interpretation Comments Sodium Lvl (test code = Sodium Lvl) 131 135-145 [facility] [place] CLKZO2827-10-15 02:20:00 Test Item Value Reference Range Interpretation Comments Potassium Lvl (test code = Potassium 4.2 3.5-5.1 Lvl) [place] 269192-07-25 02:20:00 Test Item Value Reference Range Interpretation Comments Chloride Lvl (test code = Chloride Lvl) 97 95-109 [place] 269192-07-25 02:20:00 Test Item Value Reference Range Interpretation Comments CO2 (test code = CO2) 26 24-32 [place] 269192-07-25 02:20:00 Test Item Value Reference Range Interpretation Comments Calcium Lvl (test code = Calcium Lvl) 8.7 8.5-10.5 [place] 269192-07-25 02:20:00 Test Item Value Reference Range Interpretation Comments Total Protein (test code = Total 7.0 6.4-8.4 Protein) [place] 269192-07-25 02:20:00 Test Item Value Reference Range Interpretation Comments Albumin Lvl (test code = Albumin Lvl) 3.4 3.5-5.0 [place] 269192-07-25 02:20:00 Test Item Value Reference Range Interpretation Comments ALT (test code = ALT) 18 See_Comment [Auto mated message] The system which ge nerated this result transmit lavon reference range : <=65. The reference range was not used to interpr et this result as dionne l/abnormal. [place] 269192-07-25 02:20:00 Test Item Value Reference Range Interpretation Comments AST (test code = AST) 27 See_Comment [Auto mated message] The system which ge nerated this result transmit lavon reference range : <=37. The reference range was not used to interpr et this result as dionne l/abnormal. [facility] CenterHor[facility] Technologies [id number] 02:20:00 Test Item Value Reference Range Interpretation Comments Alk Phos (test code = Alk Phos) 57 39-136 [place] 269192-07-25 02:20:00 Test Item Value Reference Range Interpretation Comments Bili Total (test code = Bili Total) 1.0 0.2-1.3 [place] 269192-07-25 02:20:00 Test Item Value Reference Range Interpretation Comments AGAP (test code = AGAP) 12.2 10.0-20.0 [facility] CenterMassively Fun [id number] 02:20:00 Test Item Value Reference Range Interpretation Comments B/C Ratio (test code = B/C Ratio) 24 1 6-25 [facility]2022-07-25 02:20:00 Test Item Value Reference Range Interpretation Comments Globulin (test code = Globulin) 3.6 2.7-4.2 [facility]2022-07-25 02:20:00 Test Item Value Reference Range Interpretation Comments A/G Ratio (test code = A/G Ratio) 0.9 1 0.7-1.6 [facility]2022-07-25 02:20:00 Test Item Value Reference Range Interpretation Comments eGFR (test code = eGFR) 62 [facility] HospitalOgsqetvCUURQWUIKH5558-32-59 02:20:00 Test Item Value Reference Range Interpretation Comments WBC (test code = WBC) 8.6 3.7-10.4 [facility] HospitalLfujvjbOBCLMQGNOJ3456-70-61 02:20:00 Test Item Value Reference Range Interpretation Comments RBC (test code = RBC) 3.58 4.20-5.40 [facility] HospitalVfimfwmORWHHHBKOC1313-53-74 02:20:00 Test Item Value Reference Range Interpretation Comments Hgb (test code = Hgb) 8.8 12.0-16.0 [facility] HospitalDnaydljMEJIQJOWPL9150-49-84 02:20:00 Test Item Value Reference Range Interpretation Comments Hct (test code = Hct) 27.1 36.0-48.0 [facility] HospitalFzhkulzXHJHMWWAGZ8788-03-45 02:20:00 Test Item Value Reference Range Interpretation Comments MCV (test code = MCV) 75.6 80.0-98.0 [facility] HospitalEnsylmjCPPGLTWBFF8017-39-48 02:20:00 Test Item Value Reference Range Interpretation Comments MCH (test code = MCH) 24.5 pg 27.0-31.0 [facility] HospitalCfkehupYBCLVYKCVO1114-23-12 02:20:00 Test Item Value Reference Range Interpretation Comments MCHC (test code = MCHC) 32.4 32.0-36.0 [facility] HospitalKwpjlgcMJEZIXTFAY3923-36-49 02:20:00 Test Item Value Reference Range Interpretation Comments RDW (test code = RDW) 21.1 11.5-14.5 [facility] HospitalCtybqflDWOTKSKWKA2254-27-94 02:20:00 Test Item Value Reference Range Interpretation Comments Platelet (test code = Platelet) 297 133-450 [place] 725552-07-25 02:20:00 Test Item Value Reference Range Interpretation Comments MPV (test code = MPV) 7.5 7.4-10.4 [place] 725552-07-25 02:20:00 Test Item Value Reference Range Interpretation Comments Segs (test code = Segs) 85.8 45.0-75.0 [place] 725552-07-25 02:20:00 Test Item Value Reference Range Interpretation Comments Lymphocytes (test code = Lymphocytes) 8.5 20.0-40.0 [place] 725552-07-25 02:20:00 Test Item Value Reference Range Interpretation Comments Monocytes (test code = Monocytes) 5.0 2.0-12.0 [place] 725552-07-25 02:20:00 Test Item Value Reference Range Interpretation Comments Eosinophils (test code = 0.3 See_Comment [A utomated message] The Eosinophils) system which ge nerated this result tra nsmitted reference range : <=4.0. The reference r hugo was not used to int erpret this result as normal/abnormal . [facility] HospitalMputobsRFFKFMCWPI0042-52-56 02:20:00 Test Item Value Reference Range Interpretation Comments Basophils (test code = 0.4 See_Comment [Aut omated message] The Basophils) system which ge nerated this result tra nsmitted reference range : <=1.0. The reference r hugo was not used to int erpret this result as normal/abnormal . [facility] HospitalWxyuynhLWICAKHYDB5614-25-41 02:20:00 Test Item Value Reference Range Interpretation Comments Neutrophils # (test code = Neutrophils 7.4 1.5-8.1 #) [place] 725552-07-25 02:20:00 Test Item Value Reference Range Interpretation Comments Lymphocytes # (test code = Lymphocytes 0.7 1.0-5.5 #) [place] [address]-07-25 02:20:00 Test Item Value Reference Range Interpretation Comments Monocytes # (test code 0.4 See_Comment [Aut omated message] The = Monocytes #) system which generated this result tra nsmitted reference range : <=0.8. The reference r hugo was not used to int erpret this result as normal/abnormal . [place] 725552-07-25 02:20:00 Test Item Value Reference Range Interpretation Comments Microcyte (test code = 1+ *ABN*(06/12/22 Microcyte) 9:20 PM) [facility] [id number] 02:20:00 Test Item Value Reference Range Interpretation Comments HS Troponin I (test code = HS Troponin 52 I) [facility] [id number] 02:20:00 Test Item Value Reference Range Interpretation Comments Glucose Lvl (test code = Glucose Lvl) 103 70-99 [facility] [id number] 02:20:00 Test Item Value Reference Range Interpretation Comments BUN (test code = BUN) 22 - [facility] [id number] 02:20:00 Test Item Value Reference Range Interpretation Comments Creatinine Lvl (test code = Creatinine 0.90 0.50-1.40 Lvl) [facility] [id number] 02:20:00 Test Item Value Reference Range Interpretation Comments Sodium Lvl (test code = Sodium Lvl) 131 135-145 [facility]2022-07-25 02:20:00 Test Item Value Reference Range Interpretation Comments Potassium Lvl (test code = Potassium 4.2 3.5-5.1 Lvl) [facility]2022-07-25 02:20:00 Test Item Value Reference Range Interpretation Comments Chloride Lvl (test code = Chloride Lvl) 97 95-109 [facility]2022-07-25 02:20:00 Test Item Value Reference Range Interpretation Comments CO2 (test code = CO2) 26 24-32 [facility]2022-07-25 02:20:00 Test Item Value Reference Range Interpretation Comments Calcium Lvl (test code = Calcium Lvl) 8.7 8.5-10.5 [facility]2022-07-25 02:20:00 Test Item Value Reference Range Interpretation Comments Total Protein (test code = Total 7.0 6.4-8.4 Protein) [facility]2022-07-25 02:20:00 Test Item Value Reference Range Interpretation Comments Albumin Lvl (test code = Albumin Lvl) 3.4 3.5-5.0 [facility]2022-07-25 02:20:00 Test Item Value Reference Range Interpretation Comments ALT (test code = ALT) 18 See_Comment [Auto mated message] The system which ge nerated this result transmit lavon reference range : <=65. The reference range was not used to interpr et this result as dionne l/abnormal. [facility] [id number] 02:20:00 Test Item Value Reference Range Interpretation Comments AST (test code = AST) 27 See_Comment [Auto mated message] The system which ge nerated this result transmit lavon reference range : <=37. The reference range was not used to interpr et this result as dionne l/abnormal. [facility] [id number] 02:20:00 Test Item Value Reference Range Interpretation Comments Alk Phos (test code = Alk Phos) 57 39-136 [facility] [id number] 02:20:00 Test Item Value Reference Range Interpretation Comments Bili Total (test code = Bili Total) 1.0 0.2-1.3 [facility] [id number] 02:20:00 Test Item Value Reference Range Interpretation Comments AGAP (test code = AGAP) 12.2 10.0-20.0 [facility] [id number] 02:20:00 Test Item Value Reference Range Interpretation Comments B/C Ratio (test code = B/C Ratio) 24 1 6-25 [facility] [id number] 02:20:00 Test Item Value Reference Range Interpretation Comments Globulin (test code = Globulin) 3.6 2.7-4.2 [facility] [id number] 02:20:00 Test Item Value Reference Range Interpretation Comments A/G Ratio (test code = A/G Ratio) 0.9 1 0.7-1.6 [facility] [id number] 02:20:00 Test Item Value Reference Range Interpretation Comments eGFR (test code = eGFR) 62 [facility] CenterFedlplhSSLFFTXMNJ4718-19-23 02:20:00 Test Item Value Reference Range Interpretation Comments WBC (test code = WBC) 8.6 3.7-10.4 [facility] CenterRejpltsXUSYITFGLM6954-46-36 02:20:00 Test Item Value Reference Range Interpretation Comments RBC (test code = RBC) 3.58 4.20-5.40 [facility] CenterAbfpfnqIAGAARPUKZ3516-35-38 02:20:00 Test Item Value Reference Range Interpretation Comments Hgb (test code = Hgb) 8.8 12.0-16.0 [place] 725552-07-25 02:20:00 Test Item Value Reference Range Interpretation Comments Hct (test code = Hct) 27.1 36.0-48.0 [place] 725552-07-25 02:20:00 Test Item Value Reference Range Interpretation Comments MCV (test code = MCV) 75.6 80.0-98.0 [place] 725552-07-25 02:20:00 Test Item Value Reference Range Interpretation Comments MCH (test code = MCH) 24.5 pg 27.0-31.0 [place] 725552-07-25 02:20:00 Test Item Value Reference Range Interpretation Comments MCHC (test code = MCHC) 32.4 32.0-36.0 [place] 725552-07-25 02:20:00 Test Item Value Reference Range Interpretation Comments RDW (test code = RDW) 21.1 11.5-14.5 [id number] 02:20:00 Test Item Value Reference Range Interpretation Comments Platelet (test code = Platelet) 297 133-450 [facility] HospitalJowwoyqGUEYSPUWZG6038-70-52 02:20:00 Test Item Value Reference Range Interpretation Comments MPV (test code = MPV) 7.5 7.4-10.4 [place] 725552-07-25 02:20:00 Test Item Value Reference Range Interpretation Comments Segs (test code = Segs) 85.8 45.0-75.0 [place] 725552-07-25 02:20:00 Test Item Value Reference Range Interpretation Comments Lymphocytes (test code = Lymphocytes) 8.5 20.0-40.0 [place] 725552-07-25 02:20:00 Test Item Value Reference Range Interpretation Comments Monocytes (test code = Monocytes) 5.0 2.0-12.0 [place] [address]-07-25 02:20:00 Test Item Value Reference Range Interpretation Comments Eosinophils (test code = 0.3 See_Comment [A utomated message] The Eosinophils) system which ge nerated this result tra nsmitted reference range : <=4.0. The reference r hugo was not used to int erpret this result as normal/abnormal . [facility] CenterKchprpuVRELFUGGSF3368-71-33 02:20:00 Test Item Value Reference Range Interpretation Comments Basophils (test code = 0.4 See_Comment [Aut omated message] The Basophils) system which ge nerated this result tra nsmitted reference range : <=1.0. The reference r hugo was not used to int erpret this result as normal/abnormal . [facility] CenterMzutsvgDBKSKHVCQO7325-13-63 02:20:00 Test Item Value Reference Range Interpretation Comments Neutrophils # (test code = Neutrophils 7.4 1.5-8.1 #) [facility] CenterIgfmlxpLTPHKWEUKN9701-46-84 02:20:00 Test Item Value Reference Range Interpretation Comments Lymphocytes # (test code = Lymphocytes 0.7 1.0-5.5 #) [facility]KHUM7026[facility]37[facility] 02:20:00 Test Item Value Reference Range Interpretation Comments Monocytes # (test code 0.4 See_Comment [Aut omated message] The = Monocytes #) system which generated this result tra nsmitted reference range : <=0.8. The reference r hugo was not used to int erpret this result as normal/abnormal . [facility] CenterFteaobtHVBKMTPVME3581-42-97 02:20:00 Test Item Value Reference Range Interpretation Comments Microcyte (test code = 1+ *ABN*(06/12/22 Microcyte) 9:20 PM) [facility] CenterH[facility] EsquireCARDIAC [id number] 02:20:00 Test Item Value Reference Range Interpretation Comments HS Troponin I (test code = HS Troponin 52 I) [facility] YOLLEGE [id number] 02:20:00 Test Item Value Reference Range Interpretation Comments Glucose Lvl (test code = Glucose Lvl) 103 70-99 [facility] [id number] 02:20:00 Test Item Value Reference Range Interpretation Comments BUN (test code = BUN) 22 - [facility] [id number] 02:20:00 Test Item Value Reference Range Interpretation Comments Creatinine Lvl (test code = Creatinine 0.90 0.50-1.40 Lvl) [facility] [id number] 02:20:00 Test Item Value Reference Range Interpretation Comments Sodium Lvl (test code = Sodium Lvl) 131 135-145 [place] 269192-07-25 02:20:00 Test Item Value Reference Range Interpretation Comments Potassium Lvl (test code = Potassium 4.2 3.5-5.1 Lvl) [place] [address]-07-25 02:20:00 Test Item Value Reference Range Interpretation Comments Chloride Lvl (test code = Chloride Lvl) 97 95-109 [place] [address]-07-25 02:20:00 Test Item Value Reference Range Interpretation Comments CO2 (test code = CO2) 26 24-32 [place] 269192-07-25 02:20:00 Test Item Value Reference Range Interpretation Comments Calcium Lvl (test code = Calcium Lvl) 8.7 8.5-10.5 [place] [address]-07-25 02:20:00 Test Item Value Reference Range Interpretation Comments Total Protein (test code = Total 7.0 6.4-8.4 Protein) [place] 269192-07-25 02:20:00 Test Item Value Reference Range Interpretation Comments Albumin Lvl (test code = Albumin Lvl) 3.4 3.5-5.0 [place] [address]-07-25 02:20:00 Test Item Value Reference Range Interpretation Comments ALT (test code = ALT) 18 See_Comment [Auto mated message] The system which ge nerated this result transmit lavon reference range : <=65. The reference range was not used to interpr et this result as dionne l/abnormal. [place] [address]-07-25 02:20:00 Test Item Value Reference Range Interpretation Comments AST (test code = AST) 27 See_Comment [Auto mated message] The system which ge nerated this result transmit lavon reference range : <=37. The reference range was not used to interpr et this result as dionne l/abnormal. [place] 269192-07-25 02:20:00 Test Item Value Reference Range Interpretation Comments Alk Phos (test code = Alk Phos) 57 39-136 [place] [address]-07-25 02:20:00 Test Item Value Reference Range Interpretation Comments Bili Total (test code = Bili Total) 1.0 0.2-1.3 [place] [address]-07-25 02:20:00 Test Item Value Reference Range Interpretation Comments AGAP (test code = AGAP) 12.2 10.0-20.0 [facility]2022-07-25 02:20:00 Test Item Value Reference Range Interpretation Comments B/C Ratio (test code = B/C Ratio) 24 1 6-25 [place] 269192-07-25 02:20:00 Test Item Value Reference Range Interpretation Comments Globulin (test code = Globulin) 3.6 2.7-4.2 [facility]2022-07-25 02:20:00 Test Item Value Reference Range Interpretation Comments A/G Ratio (test code = A/G Ratio) 0.9 1 0.7-1.6 [place] 269192-07-25 02:20:00 Test Item Value Reference Range Interpretation Comments eGFR (test code = eGFR) 62 [facility] HospitalImpissfNMQTRCWTDI3607-63-56 02:20:00 Test Item Value Reference Range Interpretation Comments WBC (test code = WBC) 8.6 3.7-10.4 [facility] HospitalNwppsseFROYHUEJQG7958-57-89 02:20:00 Test Item Value Reference Range Interpretation Comments RBC (test code = RBC) 3.58 4.20-5.40 [facility] HospitalNqlvyehDLPWADLBIA2057-58-70 02:20:00 Test Item Value Reference Range Interpretation Comments Hgb (test code = Hgb) 8.8 12.0-16.0 [place] 725552-07-25 02:20:00 Test Item Value Reference Range Interpretation Comments Hct (test code = Hct) 27.1 36.0-48.0 [place] 725552-07-25 02:20:00 Test Item Value Reference Range Interpretation Comments MCV (test code = MCV) 75.6 80.0-98.0 [place] 725552-07-25 02:20:00 Test Item Value Reference Range Interpretation Comments MCH (test code = MCH) 24.5 pg 27.0-31.0 [place] 725552-07-25 02:20:00 Test Item Value Reference Range Interpretation Comments MCHC (test code = MCHC) 32.4 32.0-36.0 [place] 725552-07-25 02:20:00 Test Item Value Reference Range Interpretation Comments RDW (test code = RDW) 21.1 11.5-14.5 [place] 725552-07-25 02:20:00 Test Item Value Reference Range Interpretation Comments Platelet (test code = Platelet) 297 133-450 [place] 725552-07-25 02:20:00 Test Item Value Reference Range Interpretation Comments MPV (test code = MPV) 7.5 7.4-10.4 [place] 725552-07-25 02:20:00 Test Item Value Reference Range Interpretation Comments Segs (test code = Segs) 85.8 45.0-75.0 [place] 725552-07-25 02:20:00 Test Item Value Reference Range Interpretation Comments Lymphocytes (test code = Lymphocytes) 8.5 20.0-40.0 [place] 725552-07-25 02:20:00 Test Item Value Reference Range Interpretation Comments Monocytes (test code = Monocytes) 5.0 2.0-12.0 [place] 725552-07-25 02:20:00 Test Item Value Reference Range Interpretation Comments Eosinophils (test code = 0.3 See_Comment [A utomated message] The Eosinophils) system which ge nerated this result tra nsmitted reference range : <=4.0. The reference r hugo was not used to int erpret this result as normal/abnormal . [place] 725552-07-25 02:20:00 Test Item Value Reference Range Interpretation Comments Basophils (test code = 0.4 See_Comment [Aut omated message] The Basophils) system which ge nerated this result tra nsmitted reference range : <=1.0. The reference r hugo was not used to int erpret this result as normal/abnormal . [facility] HospitalNnqpyniAQUOJKNYDX7714-60-65 02:20:00 Test Item Value Reference Range Interpretation Comments Neutrophils # (test code = Neutrophils 7.4 1.5-8.1 #) [place] 725552-07-25 02:20:00 Test Item Value Reference Range Interpretation Comments Lymphocytes # (test code = Lymphocytes 0.7 1.0-5.5 #) [place] 725552-07-25 02:20:00 Test Item Value Reference Range Interpretation Comments Monocytes # (test code 0.4 See_Comment [Aut omated message] The = Monocytes #) system which generated this result tra nsmitted reference range : <=0.8. The reference r hugo was not used to int erpret this result as normal/abnormal . [facility] CenterUzqqlmzUTAOONGASS8403-25-98 02:20:00 Test Item Value Reference Range Interpretation Comments Microcyte (test code = 1+ *ABN*(06/12/22 Microcyte) 9:20 PM) [facility] [id number] 02:20:00 Test Item Value Reference Range Interpretation Comments HS Troponin I (test code = HS Troponin 52 I) [facility] [id number] 02:20:00 Test Item Value Reference Range Interpretation Comments Glucose Lvl (test code = Glucose Lvl) 103 70-99 [facility]2022-07-25 02:20:00 Test Item Value Reference Range Interpretation Comments BUN (test code = BUN) 22 06-10 [facility]2022-07-25 02:20:00 Test Item Value Reference Range Interpretation Comments Creatinine Lvl (test code = Creatinine 0.90 0.50-1.40 Lvl) [facility]2022-07-25 02:20:00 Test Item Value Reference Range Interpretation Comments Sodium Lvl (test code = Sodium Lvl) 131 135-145 [facility]2022-07-25 02:20:00 Test Item Value Reference Range Interpretation Comments Potassium Lvl (test code = Potassium 4.2 3.5-5.1 Lvl) [facility]2022-07-25 02:20:00 Test Item Value Reference Range Interpretation Comments Chloride Lvl (test code = Chloride Lvl) 97 95-109 [facility]2022-07-25 02:20:00 Test Item Value Reference Range Interpretation Comments CO2 (test code = CO2) 26 24-32 [facility]2022-07-25 02:20:00 Test Item Value Reference Range Interpretation Comments Calcium Lvl (test code = Calcium Lvl) 8.7 8.5-10.5 [facility]2022-07-25 02:20:00 Test Item Value Reference Range Interpretation Comments Total Protein (test code = Total 7.0 6.4-8.4 Protein) [facility]2022-07-25 02:20:00 Test Item Value Reference Range Interpretation Comments Albumin Lvl (test code = Albumin Lvl) 3.4 3.5-5.0 [facility] [id number] 02:20:00 Test Item Value Reference Range Interpretation Comments ALT (test code = ALT) 18 See_Comment [Auto mated message] The system which ge nerated this result transmit lavon reference range : <=65. The reference range was not used to interpr et this result as dionne l/abnormal. [facility] [id number] 02:20:00 Test Item Value Reference Range Interpretation Comments AST (test code = AST) 27 See_Comment [Auto mated message] The system which ge nerated this result transmit lavon reference range : <=37. The reference range was not used to interpr et this result as dionne l/abnormal. [facility] [id number] 02:20:00 Test Item Value Reference Range Interpretation Comments Alk Phos (test code = Alk Phos) 57 39-136 [facility] [id number] 02:20:00 Test Item Value Reference Range Interpretation Comments Bili Total (test code = Bili Total) 1.0 0.2-1.3 [facility] [id number] 02:20:00 Test Item Value Reference Range Interpretation Comments AGAP (test code = AGAP) 12.2 10.0-20.0 [facility] [id number] 02:20:00 Test Item Value Reference Range Interpretation Comments B/C Ratio (test code = B/C Ratio) 24 1 6-25 [facility] [id number] 02:20:00 Test Item Value Reference Range Interpretation Comments Globulin (test code = Globulin) 3.6 2.7-4.2 [facility] [id number] 02:20:00 Test Item Value Reference Range Interpretation Comments A/G Ratio (test code = A/G Ratio) 0.9 1 0.7-1.6 [facility] [id number] 02:20:00 Test Item Value Reference Range Interpretation Comments eGFR (test code = eGFR) 62 [facility] CenterWsgmuzuNIBNHQBROJ1652-92-99 02:20:00 Test Item Value Reference Range Interpretation Comments WBC (test code = WBC) 8.6 3.7-10.4 [facility] CenterLlrzizrVQJAVSFRCH9532-74-67 02:20:00 Test Item Value Reference Range Interpretation Comments RBC (test code = RBC) 3.58 4.20-5.40 [facility] HospitalHettdalQOEVTHWQQJ0107-33-27 02:20:00 Test Item Value Reference Range Interpretation Comments Hgb (test code = Hgb) 8.8 12.0-16.0 [facility] HospitalKlvqrkkFVCFGAYDYH0251-90-29 02:20:00 Test Item Value Reference Range Interpretation Comments Hct (test code = Hct) 27.1 36.0-48.0 [facility] HospitalWefaartIARENCRYAR8541-28-70 02:20:00 Test Item Value Reference Range Interpretation Comments MCV (test code = MCV) 75.6 80.0-98.0 [facility] HospitalPmekioqXCRRATEUGZ4231-09-67 02:20:00 Test Item Value Reference Range Interpretation Comments MCH (test code = MCH) 24.5 pg 27.0-31.0 [facility] HospitalKokimhcDKMCXIQKXI5383-53-24 02:20:00 Test Item Value Reference Range Interpretation Comments MCHC (test code = MCHC) 32.4 32.0-36.0 [facility] HospitalLbllpguDIQGJPDRAE4487-74-70 02:20:00 Test Item Value Reference Range Interpretation Comments RDW (test code = RDW) 21.1 11.5-14.5 [facility] HospitalOrqqjlyREXDEUULOK2492-72-59 02:20:00 Test Item Value Reference Range Interpretation Comments Platelet (test code = Platelet) 297 133-450 [facility] HospitalYtrsafcWWCMUAGHAM7799-43-93 02:20:00 Test Item Value Reference Range Interpretation Comments MPV (test code = MPV) 7.5 7.4-10.4 [facility] HospitalFfwwpffDVNXNUKUWU7927-86-53 02:20:00 Test Item Value Reference Range Interpretation Comments Segs (test code = Segs) 85.8 45.0-75.0 [facility] HospitalPnhrchyCESZTTQSPM1093-89-18 02:20:00 Test Item Value Reference Range Interpretation Comments Lymphocytes (test code = Lymphocytes) 8.5 20.0-40.0 [place] 725552-07-25 02:20:00 Test Item Value Reference Range Interpretation Comments Monocytes (test code = Monocytes) 5.0 2.0-12.0 [place] 725552-07-25 02:20:00 Test Item Value Reference Range Interpretation Comments Eosinophils (test code = 0.3 See_Comment [A utomated message] The Eosinophils) system which ge nerated this result tra nsmitted reference range : <=4.0. The reference r hugo was not used to int erpret this result as normal/abnormal . [facility] HospitalLsskihfAMPAHFRNBT5575-19-74 02:20:00 Test Item Value Reference Range Interpretation Comments Basophils (test code = 0.4 See_Comment [Aut omated message] The Basophils) system which ge nerated this result tra nsmitted reference range : <=1.0. The reference r hugo was not used to int erpret this result as normal/abnormal . [facility] HospitalKmaozsiIXTKRNGMOH1939-11-28 02:20:00 Test Item Value Reference Range Interpretation Comments Neutrophils # (test code = Neutrophils 7.4 1.5-8.1 #) [facility] HospitalYhqlhfsTXNHWKGTGT2032-01-61 02:20:00 Test Item Value Reference Range Interpretation Comments Lymphocytes # (test code = Lymphocytes 0.7 1.0-5.5 #) [facility] HospitalSqphcwgSMQEZUSNRT8383-27-60 02:20:00 Test Item Value Reference Range Interpretation Comments Monocytes # (test code 0.4 See_Comment [Aut omated message] The = Monocytes #) system which generated this result tra nsmitted reference range : <=0.8. The reference r hugo was not used to int erpret this result as normal/abnormal . [facility] HospitalDqvlhzuSDVEBVODPI3097-79-20 02:20:00 Test Item Value Reference Range Interpretation Comments Microcyte (test code = 1+ *ABN*(06/12/22 Microcyte) 9:20 PM) [facility] [id number] 02:20:00 Test Item Value Reference Range Interpretation Comments HS Troponin I (test code = HS Troponin 52 I) [facility] [id number] 02:20:00 Test Item Value Reference Range Interpretation Comments Glucose Lvl (test code = Glucose Lvl) 103 70-99 [facility] [id number] 02:20:00 Test Item Value Reference Range Interpretation Comments BUN (test code = BUN) 22 7- [facility] [id number] 02:20:00 Test Item Value Reference Range Interpretation Comments Creatinine Lvl (test code = Creatinine 0.90 0.50-1.40 Lvl) [place] 269192-07-25 02:20:00 Test Item Value Reference Range Interpretation Comments Sodium Lvl (test code = Sodium Lvl) 131 135-145 [place] 269192-07-25 02:20:00 Test Item Value Reference Range Interpretation Comments Potassium Lvl (test code = Potassium 4.2 3.5-5.1 Lvl) [place] 269192-07-25 02:20:00 Test Item Value Reference Range Interpretation Comments Chloride Lvl (test code = Chloride Lvl) 97 95-109 [place] 269192-07-25 02:20:00 Test Item Value Reference Range Interpretation Comments CO2 (test code = CO2) 26 24-32 [place] 269192-07-25 02:20:00 Test Item Value Reference Range Interpretation Comments Calcium Lvl (test code = Calcium Lvl) 8.7 8.5-10.5 [place] 269192-07-25 02:20:00 Test Item Value Reference Range Interpretation Comments Total Protein (test code = Total 7.0 6.4-8.4 Protein) [place] 269192-07-25 02:20:00 Test Item Value Reference Range Interpretation Comments Albumin Lvl (test code = Albumin Lvl) 3.4 3.5-5.0 [place] 269192-07-25 02:20:00 Test Item Value Reference Range Interpretation Comments ALT (test code = ALT) 18 See_Comment [Auto mated message] The system which ge nerated this result transmit lavon reference range : <=65. The reference range was not used to interpr et this result as dionne l/abnormal. [place] 269192-07-25 02:20:00 Test Item Value Reference Range Interpretation Comments AST (test code = AST) 27 See_Comment [Auto mated message] The system which ge nerated this result transmit lavon reference range : <=37. The reference range was not used to interpr et this result as dionne l/abnormal. [place] 269192-07-25 02:20:00 Test Item Value Reference Range Interpretation Comments Alk Phos (test code = Alk Phos) 57 39-136 [place] 269192-07-25 02:20:00 Test Item Value Reference Range Interpretation Comments Bili Total (test code = Bili Total) 1.0 0.2-1.3 [place] 269192-07-25 02:20:00 Test Item Value Reference Range Interpretation Comments AGAP (test code = AGAP) 12.2 10.0-20.0 [place] 269192-07-25 02:20:00 Test Item Value Reference Range Interpretation Comments B/C Ratio (test code = B/C Ratio) 24 1 6-25 [place] 269192-07-25 02:20:00 Test Item Value Reference Range Interpretation Comments Globulin (test code = Globulin) 3.6 2.7-4.2 [place] 269192-07-25 02:20:00 Test Item Value Reference Range Interpretation Comments A/G Ratio (test code = A/G Ratio) 0.9 1 0.7-1.6 [place] 269192-07-25 02:20:00 Test Item Value Reference Range Interpretation Comments eGFR (test code = eGFR) 62 [facility] HospitalJaypoeiAWEFZWPBGF7595-17-88 02:20:00 Test Item Value Reference Range Interpretation Comments WBC (test code = WBC) 8.6 3.7-10.4 [place] 725552-07-25 02:20:00 Test Item Value Reference Range Interpretation Comments RBC (test code = RBC) 3.58 4.20-5.40 [place] 725552-07-25 02:20:00 Test Item Value Reference Range Interpretation Comments Hgb (test code = Hgb) 8.8 12.0-16.0 [place] 725552-07-25 02:20:00 Test Item Value Reference Range Interpretation Comments Hct (test code = Hct) 27.1 36.0-48.0 [place] 725552-07-25 02:20:00 Test Item Value Reference Range Interpretation Comments MCV (test code = MCV) 75.6 80.0-98.0 [place] 725552-07-25 02:20:00 Test Item Value Reference Range Interpretation Comments MCH (test code = MCH) 24.5 pg 27.0-31.0 [place] 725552-07-25 02:20:00 Test Item Value Reference Range Interpretation Comments MCHC (test code = MCHC) 32.4 32.0-36.0 [place] 725552-07-25 02:20:00 Test Item Value Reference Range Interpretation Comments RDW (test code = RDW) 21.1 11.5-14.5 [place] 725552-07-25 02:20:00 Test Item Value Reference Range Interpretation Comments Platelet (test code = Platelet) 297 133-450 [place] 725552-07-25 02:20:00 Test Item Value Reference Range Interpretation Comments MPV (test code = MPV) 7.5 7.4-10.4 [place] 725552-07-25 02:20:00 Test Item Value Reference Range Interpretation Comments Segs (test code = Segs) 85.8 45.0-75.0 [place] 725552-07-25 02:20:00 Test Item Value Reference Range Interpretation Comments Lymphocytes (test code = Lymphocytes) 8.5 20.0-40.0 [place] 725552-07-25 02:20:00 Test Item Value Reference Range Interpretation Comments Monocytes (test code = Monocytes) 5.0 2.0-12.0 [place] 725552-07-25 02:20:00 Test Item Value Reference Range Interpretation Comments Eosinophils (test code = 0.3 See_Comment [A utomated message] The Eosinophils) system which ge nerated this result tra nsmitted reference range : <=4.0. The reference r hugo was not used to int erpret this result as normal/abnormal . [facility] HospitalZzmnxvuUWPLYRCPUP1057-71-30 02:20:00 Test Item Value Reference Range Interpretation Comments Basophils (test code = 0.4 See_Comment [Aut omated message] The Basophils) system which ge nerated this result tra nsmitted reference range : <=1.0. The reference r hugo was not used to int erpret this result as normal/abnormal . [place] 725552-07-25 02:20:00 Test Item Value Reference Range Interpretation Comments Neutrophils # (test code = Neutrophils 7.4 1.5-8.1 #) [place] 725552-07-25 02:20:00 Test Item Value Reference Range Interpretation Comments Lymphocytes # (test code = Lymphocytes 0.7 1.0-5.5 #) [place] 725552-07-25 02:20:00 Test Item Value Reference Range Interpretation Comments Monocytes # (test code 0.4 See_Comment [Aut omated message] The = Monocytes #) system which generated this result tra nsmitted reference range : <=0.8. The reference r hugo was not used to int erpret this result as normal/abnormal . [facility]sj[facility]uKJZRHBLKAG3324-52-40 02:20:00 Test Item Value Reference Range Interpretation Comments Microcyte (test code = 1+ *ABN*(06/12/22 Microcyte) 9:20 PM) [facility] [id number] 02:20:00 Test Item Value Reference Range Interpretation Comments HS Troponin I (test code = HS Troponin 52 I) [facility] [id number] 02:20:00 Test Item Value Reference Range Interpretation Comments Glucose Lvl (test code = Glucose Lvl) 103 70-99 [facility] [id number] 02:20:00 Test Item Value Reference Range Interpretation Comments BUN (test code = BUN) 22 7-22 [facility] [id number] 02:20:00 Test Item Value Reference Range Interpretation Comments Creatinine Lvl (test code = Creatinine 0.90 0.50-1.40 Lvl) [facility] [id number] 02:20:00 Test Item Value Reference Range Interpretation Comments Sodium Lvl (test code = Sodium Lvl) 131 135-145 [facility] [id number] 02:20:00 Test Item Value Reference Range Interpretation Comments Potassium Lvl (test code = Potassium 4.2 3.5-5.1 Lvl) [facility] [id number] 02:20:00 Test Item Value Reference Range Interpretation Comments Chloride Lvl (test code = Chloride Lvl) 97 95-109 [facility] [id number] 02:20:00 Test Item Value Reference Range Interpretation Comments CO2 (test code = CO2) 24-32 [facility] [id number] 02:20:00 Test Item Value Reference Range Interpretation Comments Calcium Lvl (test code = Calcium Lvl) 8.7 8.5-10.5 [facility] [id number] 02:20:00 Test Item Value Reference Range Interpretation Comments Total Protein (test code = Total 7.0 6.4-8.4 Protein) [facility]2022-07-25 02:20:00 Test Item Value Reference Range Interpretation Comments Albumin Lvl (test code = Albumin Lvl) 3.4 3.5-5.0 [facility]2022-07-25 02:20:00 Test Item Value Reference Range Interpretation Comments ALT (test code = ALT) 18 See_Comment [Auto mated message] The system which ge nerated this result transmit lavon reference range : <=65. The reference range was not used to interpr et this result as dionne l/abnormal. [facility]2022-07-25 02:20:00 Test Item Value Reference Range Interpretation Comments AST (test code = AST) 27 See_Comment [Auto mated message] The system which ge nerated this result transmit lavon reference range : <=37. The reference range was not used to interpr et this result as dionne l/abnormal. [facility] CenterH[facility] An EsquireBLUE [facility] HOSPITALJXRLN3785-81-90 02:20:00 Test Item Value Reference Range Interpretation Comments Alk Phos (test code = Alk Phos) 57 39-136 [facility]2022-07-25 02:20:00 Test Item Value Reference Range Interpretation Comments Bili Total (test code = Bili Total) 1.0 0.2-1.3 [facility]2022-07-25 02:20:00 Test Item Value Reference Range Interpretation Comments AGAP (test code = AGAP) 12.2 10.0-20.0 [facility]2022-07-25 02:20:00 Test Item Value Reference Range Interpretation Comments B/C Ratio (test code = B/C Ratio) 24 1 6-25 [place] 269192-07-25 02:20:00 Test Item Value Reference Range Interpretation Comments Globulin (test code = Globulin) 3.6 2.7-4.2 [facility]2022-07-25 02:20:00 Test Item Value Reference Range Interpretation Comments A/G Ratio (test code = A/G Ratio) 0.9 1 0.7-1.6 [facility]2022-07-25 02:20:00 Test Item Value Reference Range Interpretation Comments eGFR (test code = eGFR) 62 [facility] HospitalNimxulhNNHYGHTOPF3602-63-65 02:20:00 Test Item Value Reference Range Interpretation Comments WBC (test code = WBC) 8.6 3.7-10.4 [facility] HospitalCxhwlypBHLQQEGOXK2750-46-65 02:20:00 Test Item Value Reference Range Interpretation Comments RBC (test code = RBC) 3.58 4.20-5.40 [facility] HospitalFwyqlrmVUONXSYPPS1986-19-65 02:20:00 Test Item Value Reference Range Interpretation Comments Hgb (test code = Hgb) 8.8 12.0-16.0 [place] 725552-07-25 02:20:00 Test Item Value Reference Range Interpretation Comments Hct (test code = Hct) 27.1 36.0-48.0 [facility] HospitalVadgfrtUWPPMGOXFE5661-92-62 02:20:00 Test Item Value Reference Range Interpretation Comments MCV (test code = MCV) 75.6 80.0-98.0 [facility] HospitalNxykdbiYQWJDFZWWO9266-26-05 02:20:00 Test Item Value Reference Range Interpretation Comments MCH (test code = MCH) 24.5 pg 27.0-31.0 [facility] HospitalGtqwstnNCRAAVHIHT2312-92-76 02:20:00 Test Item Value Reference Range Interpretation Comments MCHC (test code = MCHC) 32.4 32.0-36.0 [facility] HospitalWxrqccnFHUMUWEBKN7345-13-63 02:20:00 Test Item Value Reference Range Interpretation Comments RDW (test code = RDW) 21.1 11.5-14.5 [facility] HospitalFuftkccDKHBKBQZNK6508-98-22 02:20:00 Test Item Value Reference Range Interpretation Comments Platelet (test code = Platelet) 297 133-450 [facility] HospitalDukhjlfHVFQBRIKIC8434-29-69 02:20:00 Test Item Value Reference Range Interpretation Comments MPV (test code = MPV) 7.5 7.4-10.4 [facility] HospitalMlxbjrzJWUSTIRCHE5950-91-19 02:20:00 Test Item Value Reference Range Interpretation Comments Segs (test code = Segs) 85.8 45.0-75.0 [place] 725552-07-25 02:20:00 Test Item Value Reference Range Interpretation Comments Lymphocytes (test code = Lymphocytes) 8.5 20.0-40.0 [place] 725552-07-25 02:20:00 Test Item Value Reference Range Interpretation Comments Monocytes (test code = Monocytes) 5.0 2.0-12.0 [facility] HospitalGcprbzePPKYCWDUCF0297-11-85 02:20:00 Test Item Value Reference Range Interpretation Comments Eosinophils (test code = 0.3 See_Comment [A utomated message] The Eosinophils) system which ge nerated this result tra nsmitted reference range : <=4.0. The reference r hugo was not used to int erpret this result as normal/abnormal . [facility] HospitalIxagpkiHKWNBPNTQV1543-01-80 02:20:00 Test Item Value Reference Range Interpretation Comments Basophils (test code = 0.4 See_Comment [Aut omated message] The Basophils) system which ge nerated this result tra nsmitted reference range : <=1.0. The reference r hugo was not used to int erpret this result as normal/abnormal . [facility] HospitalYekfdtuWNTFSJWMOP1857-08-49 02:20:00 Test Item Value Reference Range Interpretation Comments Neutrophils # (test code = Neutrophils 7.4 1.5-8.1 #) [facility] HospitalXpvqryiLHRWYRHGBQ6129-29-65 02:20:00 Test Item Value Reference Range Interpretation Comments Lymphocytes # (test code = Lymphocytes 0.7 1.0-5.5 #) [facility] HospitalOhmwguzKELEXDFQSX6762-24-39 02:20:00 Test Item Value Reference Range Interpretation Comments Monocytes # (test code 0.4 See_Comment [Aut omated message] The = Monocytes #) system which generated this result tra nsmitted reference range : <=0.8. The reference r hugo was not used to int erpret this result as normal/abnormal . [facility] HospitalMymjsywAOPRTSWWDE9604-31-39 02:20:00 Test Item Value Reference Range Interpretation Comments Microcyte (test code = 1+ *ABN*(06/12/22 Microcyte) 9:20 PM) [facility]CuapyibUPXZHCHF0906-95-78 11:14:00 Test Item Value Reference Range Interpretation Comments SURGICAL (test code = SR) R UN DATE: 06/01/22 [place] - LAB PAGE 1 RUN TIME: 1114 Specimen Inquiry RUN USER: INTERFACE P ATIENT: KELLY SLOAN Patricia LOC: [place] U #: [id number] AGE/SX: 87/F ROOM: [facility] RE05/20/22REG DR: Frank Putnam MD : 35 BED: 1 DIS: 05/26/22 STATUS: DIS IN TLOC: SPEC #: [id number] RECD: 05/28/22 STATUS: MALOU REQ #: [id number] FLORES: 05/25/22- SUBM DR: Frank Putnam MD ENTERED: 05/28/22-1416 SP TYPE: SURGICAL OTHR DR: Lizeth Morales MD, Nehme X MD Chaugle, Abdul Hannan MD Lee,Camron Longoria,Ofelia Valle MD NPORDERED: 91392, 83945, IHC ADD 11843/7, 17463-67, ANATOMIC SPEC COPIES TO: Lizeth Morales MD [address] [place] [address] John Alberto MD [address] [facility] [place] [address] Marcellus De La Garza MD [address] [facility] [address] [place] [address] Camron Fonseca MD [address] [facility] [place] [address] Kyler Longoria MD [address] [place] [address] Frank Putnam MD [address] [facility] [address] [place] [address] Ofelia Syed NP [address] [place] [address] CONTINUED ON NEXT PAGE R UN DATE: 06/01/22 [place] - LAB PAGE 2 RUN TIME: 1114 Specimen Inquiry RUN USER: INTERFACE S PEC #: [id number] PATIENT: SLOANKELLY M #[id number] (Continued) PROCEDURES: 95263 (05/28/22-1417) 79301 (06/01/22) IHC ADD 92024 (06/01/22) 20546-26 (06/01/22) TISSUES: A. PERITONEUM BIOPSY - NODULE, [...] submitted in 1cassette. Technical component performed at [facility],[address] [place] [address] Unless gross only, the diagnosis is based [...] CK20 and calretinin. Inhibin immunohistochemical stainperformed at [facility] and interpreted at [facility] is negative in the tumor cells. CONTINUED ON NEXT PAGE R UN DATE: 06/01/22 [place] - LAB PAGE 3 RUN TIME: 1114 Specimen Inquiry RUN USER: INTERFACE S JERE #: [id number] PATIENT: KELLY SLOAN Patricia #[id number] (Continued) CLINICAL INFORMATION PERITONAL NODULE ----- Signed _ Dav Marie 06/01/22 1114 END OF REPORT [id number] 10:45:00 Test Item Value Reference Range Interpretation Comments MAGNESIUM (test code = MAG) 1.65 mg/dL 1.80-2.40 L CBC W/AUTO [id number] 08:08:00 Test Item Value Reference Range Interpretation [...] (test code NO = MDIFF) BASIC METABOLIC [id number] 07:29:00 Test Item Value Reference Range Interpretation [...] = 8.9 mg/dL 8.0-10.5 N CA) PROTHROMBIN [id number] 06:41:00 Test Item Value Reference Range Interpretation [...] recurrent infar ct). COVID 19 Asymptomatic IH [id number] 04:50:00 Test Item Value Reference Range Interpretation [...] tests. COMMENTS: PRE ENDO- CT GUID NDL PLCNV (Biopsy/Asp)2022-05-25 00:00:00 [facility] 1935 Sex: F Name: KELLY SLOAN [facility] : 1935 Age/S: 87 / F [address] [place], [place] [address]vd Unit #: [id number] Loc: [place] [address] Phys: Jamshid Chang MD Acct: [id number] Dis Date: Status: ADM IN PHONE #: [phone] Exam Date: 05/25/2022 1313 FAX #: [phone] Reason: peritoneal mets- etiology? EXAMS: CPT CODE: [id number] CT GUID NDL PLCMT (Biopsy/Asp) 66539 PROCEDURE INFORMATION: Exam: IR Biopsy, abdominal or [...] procedure. TECHNIQUE: Moderate sedation: I supervised moderate sedationduring this procedure. Patient was continuously monitored by a nurse using automated blood pressure,electrocardiogram, and pulse oximetry. The moderate sedation record is permanently stored in the hospital information system. The personal supervised moderate sedation time was 25 minutes. Medications administered: Versed 1 mg IV and Fentanyl [address] was used to demarcate anterior peritoneal mass. The anterior abdomen of the patient was prepped and draped using sterile technique.The overlying skin was anesthetized with 1% lidocaine. [...] 1 Signed Report (CONTINUED) Name: KELLY SLOAN [facility] : 1935 Age/S: 87 / F [address] [place] [address] Blvd Unit #: [id number] Loc: [place] [address] Phys: Jamshid Chang MD Acct: [id number] Dis Date:Status: ADM IN PHONE #: [phone] Exam Date: 05/25/2022 1313 FAX #: [phone] Reason: peritoneal mets- etiology? EXAMS: CPT CODE: [id number] CT GUID NDL PLCMT (Biopsy/Asp) 83489 (Continued) at 1501 Reported and signed by: Aure Munroe D.O. CC: Jamshid Chagn MD; Frank Putnam MD Technologist:Jose Kaiser, RT(R)(CT) CTDI: D LP: Trnscb Date/Time: 05/25/2022 (150) t.SDR.MP37 Orig Print D/T: S: 05/25/2022 (1501) PAGE 2 Signed ReportPROTEIN ELECTROPHORESIS [id number] 17:08:00 Test Item Value Reference Range Interpretation Comments TOTAL PROTEIN 5.7 g/dL 6.0-8.5 L (test code = PROTE) ALBUMIN (test 3.1 g/dL 2.9-4.4 code = ALBE) BJMDM-3-SBFAPKDX 0.3 g/dL 0.0-0.4 (test code = A1G) XAQCQ-0-KZELDJHS 0.6 g/dL 0.4-1.0 (test code = A2G) [...] is not apparent.Perfor med At: HD [facility] [address] [place] , [place] [id number] Willis Lovett MD Ph:[phone] rform ed At: [facility] [address] [place] [id number] tonia LIANG RUST Ph:[phone] [Automated mess age] The system [employer] generated this result transmit lavon reference range : (). The reference r hugo was not used to interpret this result as normal/abnormal . LACTIC DEHYDROGENASE(LDH)2022-05-24 17:08:00 Test Item Value Reference Range Interpretation Comments LACTIC DEHYDROGENASE(LDH) (test 233 IUnits/L 84-246 N code = LDH) TOTAL IRON BINDING [id number] 17:08:00 Test Item Value Reference Range Interpretation Comments SERUM IRON (test code = IRON) 88 mcg/dL 35-150 N TOTAL IRON BINDING CAPACITY (test 382 mcg/dL 260-445 N code = TIBC) UIBC (test code = UIBC) 294 mcg/dL IRON SATURATION (test code = 23.0 % 14-34 N FESAT) VITAMIN [id number] 17:08:00 Test Item Value Reference Range Interpretation Comments VITAMIN B12 (test code = VITB12) 262 pg/mL 193-986 N FOLIC [id number] 17:08:00 Test Item Value Reference Range Interpretation Comments FOLIC ACID (test code = FOL) 11.3 ng/mL 3.1-17.5 N AG [id number] 17:08:00 Test Item Value Reference Range Interpretation Comments AG CARCINOEMBRYONIC (test code = 0.1 NG/ML 0.0-5.0 N CEA) [place] [id number] 17:08:00 Test Item Value Reference Range Interpretation Comments CA 125 (test 115.0 U/mL 0.0-38.1 A Greta [employer]osti cs code = Electrochemilum inescence CA125) Immunoassay(ECL IA)Values obtained with d ifferent assay methods or kits cannotbe used interchangeably . Results cannot be interpreted asabsolute evidence of the presence or absence of fei gnantdisease. CA27-29, [id number] 17:08:00 Test Item Value Reference Range Interpretation Comments CA27-29, 22.1 U/mL 0.0-38.6 Siemens Centaur BIOMIRA (test Immunochemilum inometric code = KQ8729) Methodology ( ICMA)Values obtained with d ifferent assay methods or kits cannotbe used interchangeably . Results cannot be inter preted asabsolute evid ence of the presence or abs ence of malignantdiseas e.Performed At: [facility] [address] [place], [place] [id number] Willis Lovett MD Ph:[phone] BASIC METABOLIC [id number] 04:47:00 Test Item Value Reference Range Interpretation [...] code = 7.8 mg/dL 8.0-10.5 L CA) [id number] 04:47:00 Test Item Value Reference Range Interpretation Comments MAGNESIUM (test code = MAG) 1.80 mg/dL 1.80-2.40 N CBC W/AUTO [id number] 04:37:00 Test Item Value Reference Range Interpretation [...] DIFF REQUIRED (test code NO = MDIFF) [id number] 17:11:00 Test Item Value Reference Range Interpretation Comments HAPTOGLOBIN (test code 137 mg/dL 41-333 Perfo rmed At: DA = HAPT) [facility] [address] [place], [place] [id number] h LIANG RUST Ph:[phone] BASIC METABOLIC [id number] 04:10:00 Test Item Value Reference Range Interpretation [...] code = 8.1 mg/dL 8.0-10.5 N CA) [id number] 04:10:00 Test Item Value Reference Range Interpretation Comments MAGNESIUM (test code = MAG) 1.92 mg/dL 1.80-2.40 N CBC W/AUTO [id number] 03:56:00 Test Item Value Reference Range Interpretation [...] RATIOS: RISK CHOLHDL) MALE FEMALE1/2 AVERAGE 3.43 3.27AVERA GE 4.97 4.442X AVERAGE 9.55 7.053X AVERAGE 23.39 11.04 NOTE THAT THE REFERENCE VALUE IS RELATEDTO RISK LEVELS RECOMMENDED BY THE NATL.HEART, JENSEN G, AND BLOOD INST. HDL CHOLESTEROL 61.4 mg/dL 39-96 N (test code = HDL) LIPOPROTEIN LDL 58.1 mg/dL 0-100 N <100 OPTIMAL 100-129 (test code = LDL) NEAR OPTIM AL/ABOVE [id number] AOPFPNAPYF495-8 89 HIGH>XU=565 VE RY HIGH*Guidelines provided by the National Choles terol EducationProgra m Adult Treatment Panel III SERUM [id number] 05:12:00 Test Item Value Reference Range Interpretation Comments SERUM IRON (test code = IRON) 90 mcg/dL 35-150 N THYROID STIMULATING [id number] 05:12:00 Test Item Value Reference Range Interpretation Comments THYROID STIMULATING 2.69 0.42-5.47 N Results in HORMONE (test code = TSH) mi lli-International Units/mL [id number] 05:12:00 Test Item Value Reference Range Interpretation Comments FERRITIN (test code = BRIDGET) 35.6 ng/mL 11.0-306.8 N RETIC COUNT (AUTOMATED)2022-05-20 05:08:00 Test Item Value Reference Range Interpretation Comments RETIC COUNT (AUTOMATED) (test code = 2.3 % 0.3-2.3 N RETICA) BASIC METABOLIC [id number] 05:00:00 Test Item Value Reference Range Interpretation [...] code = 8.0 mg/dL 8.0-10.5 N CA) [id number] 05:00:00 Test Item Value Reference Range Interpretation Comments MAGNESIUM (test code = MAG) 2.06 mg/dL 1.80-2.40 CBC W/AUTO [id number] 04:59:00 Test Item Value Reference Range Interpretation [...] = MDIFF) - CT ABD PELVIS W/O [id number] 00:00:00 [facility] 1935 Sex: F Name: KELLY SLOAN [facility] : 1935 Age/S: 87 / F [address] [place] [address] Unit #: [id number] Loc: [place] [address] Phys: Kyler Longoria MD Acct: [id number] Dis Date: Status: ADM IN PHONE #: [phone] Exam Date: 05/20/2022921 FAX #: [phone] Reason: Peritoneal nodularity, breast cancer EXAMS: CPT CODE: [id number] CT ABD PELVIS W/O CONT 52629 PROCEDURE INFORMATION: E xam: CT Abdomen And Pelvis Without Contrast Exam date and time: 05/20/2022 9:07 AM Age: 87 years old Clinical indication: Other: Peritoneal nodularity, breast cancer TECHNIQUE: Imaging protocol: Computedtomography of the abdomen and pelvis without contrast. [...] is moderate-sized hiatal hernia with paraesophageal component. Liver:Unremarkable within limitations Gallbladder and bile ducts: Hyperattenuation of gallbladder contentscompatible with vicarious excretion of contrast or sludge. No pericholecystic edema. No biliary dilat ation. Pancreas: There is diffuse, benign fatty infiltration [...] visualized. Cecal tip inseparable from soft tissue inthe right adnexal region. PAGE 1 Signed Report (CONTINUED) Name: KELLY SLOAN [facility] : 1935 Age/S: 87 / F [address] [place] [address] Unit #: [id number] Loc: [place] [address] Phys: Kyler Longoria MD Acct: [id number] Dis Date: Status: ADM IN PHONE #: [phone] Exam Date: 05/20/2022 09 FAX #: [phone] Reason: Peritoneal nodularity, breast cancer EXAMS: CPT CODE: [id number] CT ABD PELVIS W/O CONT 33099 (Continued) Intraperitoneal space: There is a small volume of freeintraperitoneal fluid. There is no focal fluid collection. [...] of the uterus and adnexa by this techniquewith amorphous tissue containing multiple calcifications. Relative contributions of uterine/adnexal masses and metastatic disease are undetermined. 4. The appendix is not visualized with cecal tip inseparable from described pelvic changes. 5. Severe atherosclerosis. 6. Bilateral, right greater than left pleural effusions and pulmonary opacities redemonstrated. The reader is referred to recent CT chest report for further details. [id number] Reported and signed by: Memo Saleem M.D. PAGE 2 Signed Report (CONTINUED) Name: KELLY SLOAN [facility] : 1935 Age/S: 87 / F [address] [place] [address] Unit #: [id number] Loc: [place] [address] Phys: Kyler Longoria MD Acct: [id number] Dis Date: Status: ADM IN PHONE #: [phone] Exam Date: 05/20/2022921 FAX #: [phone] Reason: Peritoneal nodularity, breast cancer EXAMS: CPT CODE: [id number] CT ABD PELVIS W/O CONT 55667 (Continued) CC: Kyler Longoria; Frank Putnam MD Technologist:Rosalind Sheehan. RT(R)(CT) CTDI: DLP: Trnscb Date/Time: 05/20/2022 (1526) t.SDR.KWL Orig Print D/T: S: 05/20/2022 (1526) PAGE 3 Signed ReportURINALYSIS [id number] 07:24:00 Test Item Value Reference Range Interpretation [...] 0-5 /HPF NONE SEEN SQU) CBC W/AUTO [id number] 04:25:00 Test Item Value Reference Range Interpretation [...] REQUIRED (test code NO = MDIFF) RBC [id number] 04:25:00 Test Item Value Reference Range Interpretation Comments ANISOCYTOSIS (test code = ANISO) 1+ POLYCHROMASIA (test code = POLC) 1+ HYPOCHROMIA (test code = HYPO) 1+ MICROCYTOSIS (test code = MICR) 1+ BASIC METABOLIC [id number] 04:14:00 Test Item Value Reference Range Interpretation [...] code = 7.7 mg/dL 8.0-10.5 L CA) [id number] 04:14:00 Test Item Value Reference Range Interpretation Comments MAGNESIUM (test code = MAG) 1.77 mg/dL 1.80-2.40 L - DUP VEIN [id number] 00:00:00 [facility] : 1935 Sex: F Name: KELLY SLOAN [facility] [place] : 1935 Age/S: 87 / F [address] [place] [address] Unit #: [id number] Loc: [place] [address] Phys: Analia Espinal PROPERTY CLAIMS ADJUSTER Acct: [id number] Dis Date: Status: ADM IN PHONE #: [phone] Exam Date: 05/19/2022 0548 FAX #: [phone] Reason: PRE CABG EVAL EXAMS: CPT CODE: [id number] DUP VEIN JOSE ENRIQUE [address]485 PROCEDURE INFORMATION: Exam: US Duplex Lower Extremity [...] veins for vein mapping. Other technique: Grayscale, colorDoppler, and spectral Doppler evaluation of the bilateral [...] 1 Signed Report (CONTINUED) Name: KELLY SLOAN [facility] : 1935 Age/S: 87 / F [address] Unit #: [id number] Loc: [place] [address] Phys: Analia Espinal PROPERTY CLAIMS ADJUSTER Acct:[id number] Dis Date: Status: ADM IN PHONE #: [phone] Exam Date: 05/19/2022 0548 FAX #: [phone] Reason: PRE CABG EVAL EXAMS: CPT CODE: [id number] DUP VEIN JOSE ENRIQUE 66777 (Continued) CC: Analia Peñaloza PROPERTY CLAIMS ADJUSTER; Frank Putnam MD Technologist: Nannette Maldonado RDMS(AB)(OB) Trnscb Date/Time: 05/19/2022 (617) [email or web address] Orig Print D/T: S: 05/19/2022 (618) Probe: PAGE 2 Signed Report- DUP EXTRACRANIAL [id number] 00:00:00 [facility] KELLY [facility]LO[facility] : 1935 Sex: F Name: KELLY SLOAN [facility] [place] : 1935 Age/S: 87 / F [address] Unit #: [id number] Loc: [place] [address] Phys: Analia Espinal 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 There is [...] 1 Signed Report (CONTINUED) Name: KELLY SLOAN [facility] : 1935 Age/S: 87 / F [address] [place] [address] Unit #: [id number] Loc: [place] [address] Phys: Analia Sanders NP Acct: [id number] Dis Date: Status: ADM IN PHONE #: [phone] Exam Date: 05/19/2022 0548 FAX #: [phone] Reason: PRE CABG EVAL EXAMS: CPT CODE: [id number] DUP EXTRACRANIAL JOSE ENRIQUE 70503 (Continued) CC: Analia Sanders PROPERTY CLAIMS ADJUSTER; Frank Putnam MD Technologist: Nannette Maldonado RDMS(AB)(OB) Trnscb Date/Time: 05/19/2022 (638) [email or web address] Orig Print D/T: S: 05/19/2022 (638) Probe: PAGE 2 Signed Report- CT CHEST W/O [id number] [facility] 1935 Sex: F Name: KELLY SLOAN [facility] : 1935 Age/S: 87 / F [address] [place] [address] Unit #: [id number] Loc: [place] [address] Phys: Analia Espinal NP Acct: [id number] Dis Date:Status: ADM IN PHONE #: [phone] Exam Date: 05/19/2022 1047 FAX #: [phone] Reason: PRE CABG EVAL EXAMS: CPT CODE: [id number] CT CHEST W/O CONTRAST 48631 PROCEDURE INFORMATION: Exam: CT Chest Without Contrast; [...] Signed Report (CONTINUED) Name: JOSUE SLOANNIRMALA Gomez [facility] : 1935 Age/S: 87 / F [address] [place] [address] Unit #: [id number] Loc: [place] [address] Phys: Analia Sanders PROPERTY CLAIMS ADJUSTER Acct: [id number] Dis Date: Status: ADM IN PHONE #: [phone] Exam Date: 05/19/2022 1040 FAX #: [phone] Reason: PRE CABG EVAL EXAMS: CPT CODE: [id number] CHEST W/O CONTRAST 95365 (Continued) Liver: The liver is hyperattenuating, greater [...] 2 Signed Report (CONTINUED) Name: KELLY SLOAN [facility] : 1935 Age/S: 87 / F [address] [place] [address] Blvd Unit #: [id number] Loc: [place] [address] Phys: Analia Sanders PROPERTY CLAIMS ADJUSTER Acct: [id number] Dis Date: Status: ADM IN PHONE #: [phone] Exam Date: 05/19/2022 1047 FAX #: [phone] Reason: PRE CABG EVAL EXAMS: CPT CODE: [id number] CT CHEST W/O CONTRAST 29155 (Continued) CC: Analia Kline; Frank Putnam MD Technologist:Jose Kaiser, RT(R)(CT) CTDI: DLP: Trnscb Date/Time: 05/19/2022 ( 1328) [email or web address] Orig Print D/T: S: 05/19/2022 (5838) PAGE 3 Signed ReportGLUCOSE [id number] 21:58:00 Test Item Value Reference Range Interpretation Comments GLUCOSE BEDSIDE (test 134 MG/DL 70-110 H Perfor med by certified code = GLUBED) 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
[2022-10-07 14:02] LABS: Arterial Blood Carboxyhemoglob 1.9 % (0-1.5); Blood Gas Oxyhemoglobin 97.1 % (94-97)
[2022-10-07] MEDS ORDERED: FUROSEMIDE 40 MG/4 ML VIAL ONE (14:20)
[2022-10-07] MEDS ORDERED: ASPIRIN 81 MG CHEWABLE TABLET ONE (14:20)
[2022-10-07] MEDS ORDERED: NITROGLYCERIN 1 GM PKT TD ONE (14:20)
[2022-10-07 14:22] LABS: Absolute Lymphocytes (CBC) 1.3 K/uL (0.7-4.9); Hematocrit 27.4 % (36.0-45.0); Lymphocytes % 22.6 % (15.3-44.8); MCV 83.6 fL (80-100); MPV 7.1 fL (7.6-11.3); RBC Red Blood Cell Count 3.28 M/uL (3.86-4.86)
--- NOTE | 2022-10-07 14:27 | RAD REPORT ---
EXAM DESCRIPTION: RAD - Chest Single View - 10/07/2022 2:18 pm CLINICAL HISTORY: CHEST PAIN COMPARISON: Chest Single View dated 09/19/2022; Chest Single View dated 07/18/2022; Chest Single View dated 07/16/2022; Chest Single View dated 06/02/2022; Chest For Pe Angio dated 09/19/2022 FINDINGS: Lines: Pacemaker. Left upper chest wall Port-A-Cath. Lungs: Bilateral interstitial airspace disease. Pleural: Bilateral pleural effusions. Cardiac: Cardiomegaly. Mediastinum: Within normal limits. Bones: No acute fractures. Other: None IMPRESSION: Pulmonary edema with bilateral effusions that is similar to 09/19/2022.
[2022-10-07 14:36] LABS: Potassium 3.8 mmol/L (3.5-5.1); Troponin High Sensitivity 50.1 pg/mL (<58.9)
[2022-10-07 14:51] LABS: SARS-COV-2 RT PCR NEGATIVE (NEGATIVE)
--- NOTE | 2022-10-07 15:18 | EDPHYS ---
Physician Documentation [facility] Name: Minal Phillips Age: 87 yrs Sex: Female : 1935 Arrival Date: 10/07/2022 Time: 13:27 Bed 19 Private MD: ED Physician Delvis Robbins HPI: 10/07 13:57 This 87 yrs old Female presents to ER via Unassigned with complaints of jl9 dyspnea and chest pain. . 13:57 The patient or guardian reports chest pain that is located primarily in the anterior jl9 chest wall, bilaterally. Onset: this morning. The pain does not radiate. Associated signs and symptoms: The patient has no apparent associated signs or symptoms. Associated signs and symptoms: Pertinent positives: shortness of breath. The chest pain is described as dull. Modifying factors: The symptoms are alleviated by nothing. the symptoms are aggravated by nothing. Severity of pain: in the emergency department the pain is a 2 / 10. Historical: - Allergies: 14:01 PENICILLINS; ss - PMHx: 14:01 CAD; Congestive heart failure; GERD; Hypertensive disorder; pulmonary edema; Uterine CA;ss - PSHx: 14:01 Appendectomy; tumor removal RT breast; ss ROS: 13:58 Constitutional: Negative for fever, chills, and weight loss, Eyes: Negative for injury, jl9 pain, redness, and discharge, ENT: Negative for injury, pain, and discharge, Neck: Negative for injury, pain, and swelling. 13:58 Abdomen/GI: Negative for abdominal pain, nausea, vomiting, diarrhea, and constipation, Back: Negative for injury and pain, : Negative for injury, bleeding, discharge, and swelling, MS/Extremity: Negative for injury and deformity, Skin: Negative for injury, rash, and discoloration, Neuro: Negative for headache, weakness, numbness, tingling, and seizure, Psych: Negative for depression, anxiety, suicide ideation, homicidal ideation, and hallucinations, Allergy/Immunology: Negative for hives, rash, and allergies, Endocrine: Negative for neck swelling, polydipsia, polyuria, polyphagia, and marked weight changes, Hematologic/Lymphatic: Negative for swollen nodes, abnormal bleeding, and unusual bruising. 13:58 Cardiovascular: Positive for chest pain. 13:58 Respiratory: Positive for shortness of breath. Exam: 13:58 Constitutional: This is a well developed, well nourished patient who is awake, alert, jl9 and in no acute distress. Head/Face: Normocephalic, atraumatic. Eyes: Pupils equal round and reactive to light, extra-ocular motions intact. Lids and lashes normal. Conjunctiva and sclera are non-icteric and not injected. Cornea within normal limits. Periorbital areas with no swelling, redness, or edema. ENT: Mucous membranes moist. Neck: Trachea midline, no thyromegaly or masses palpated, and no cervical lymphadenopathy. Supple, full range of motion without nuchal rigidity, or vertebral point tenderness. No Meningismus. Chest/axilla: Normal chest wall appearance and motion. Nontender with no deformity. No lesions are appreciated. Cardiovascular: Regular rate and rhythm with a normal S1 and S2. No gallops, murmurs, or rubs. Normal PMI, no JVD. No pulse deficits. 13:58 Abdomen/GI: Soft, non-tender, with normal bowel sounds. No distension or tympany. No guarding or rebound. No evidence of tenderness throughout. Back: No spinal tenderness. No costovertebral tenderness. Full range of motion. Skin: Warm, dry with normal turgor. Normal color with no rashes, no lesions, and no evidence of cellulitis. MS/ Extremity: Pulses equal, no cyanosis. Neurovascular intact. Full, normal range of motion. Neuro: Awake and alert, GCS 15, oriented to person, place, time, and situation. Cranial nerves II-XII grossly intact. Motor strength 5/5 in all extremities. Sensory grossly intact. Cerebellar exam normal. Normal gait. Psych: Awake, alert, with orientation to person, place and time. Behavior, mood, and affect are within normal limits. 13:58 Respiratory: mild respiratory distress is noted, Respirations: tachypnea, Breath sounds: decreased breath sounds, that are mild, are located in both bases. Vital Signs: 13:47 BP 189 / 115; Pulse 96; Resp 22; Pulse Ox 100% on 45% BiPAP; ld1 14:02 BP 164 / 83; Pulse 86; Pulse Ox 100% on BiPAP; Pain 8/10; ss 14:46 BP 126 / 57; Pulse 84; Resp 20; Pulse Ox 99% on 45% BiPAP; ld1 15:53 BP 126 / 78; Pulse 80; Resp 18; Temp 98.3; Pulse Ox 100% on 45% BiPAP; Weight 68.04 kg; ld1 18:06 BP 133 / 75; Pulse 85; Resp 26; Pulse Ox 99% on R/A; ld1 18:52 BP 137 / 64; Pulse 89; Resp 18; Pulse Ox 97% on 3 lpm NC; ld1 MDM: 13:40 Patient medically screened. [facility] 15:17 Data reviewed: vital signs, nurses notes, old medical records, lab test result(s), EKG. jl9 Counseling: I had a detailed discussion with the patient and/or guardian regarding: the historical points, exam findings, and any diagnostic results supporting the discharge/admit diagnosis, the need to transfer to another facility. 10/07 13:48 Order name: Basic Metabolic Panel; Complete Time: 14:38 10/07 13:48 Order name: CBC with Diff; Complete Time: 14:38 [facility] 10/07 13:48 Order name: NT PRO-BNP; Complete Time: 14:38 10/07 13:48 Order name: Troponin HS; Complete Time: 14:38 10/07 13:48 Order name: COVID-19/FLU A+B/RSV; Complete Time: 14:55 10/07 14:03 Order name: ABG Arterial Blood Gas; Complete Time: 14:38 [facility] 10/07 13:48 Order name: XRAY Chest (1 view); Complete Time: 14:38 10/07 13:48 Order name: EKG; Complete Time: 13:49 10/07 13:48 Order name: Cardiac monitoring; Complete Time: 13:51 10/07 13:48 Order name: EKG - Nurse/Tech; Complete Time: 13:51 10/07 13:48 Order name: IV Saline Lock; Complete Time: 13:51 10/07 13:48 Order name: Labs collected and sent; Complete Time: 14:46 10/07 13:48 Order name: O2 Per Protocol; Complete Time: 13:51 10/07 13:48 Order name: O2 Sat Monitoring; Complete Time: 13:51 Administered Medications: 14:46 Drug: Lasix (furosemide) 40 mg Route: IVP; Site: left antecubital; ld1 14:55 Drug: Nitro-Bid (nitroglycerin) Ointment 2 % 0.5 inches Route: Transdermal; Site: ld1 affected area; 14:56 Drug: Aspirin Chewable Tablet 324 mg Route: PO; ld1 Disposition Summary: 10/07/22 15:17 Transfer Ordered Transfer Location: [facility] jl9 Reason: Higher level of care jl9 Condition: Fair jl9 Problem: new jl9 Symptoms: have worsened jl9 Accepting Physician: lainey(10/07/22 19:47) ll3 Diagnosis - Acute on chronic diastolic (congestive) heart failure jl9 Forms: - Medication Reconciliation Form jl9 - SBAR form jl9 Addendum: 10/09/2022 13:39 Co-signature as Attending Physician, Delvis Robbins MD I agree with the assessment and c ellison plan of care. Signatures: Dispatcher [employer] EDDelvis Jung MD MD cha Smirch, Shelby, RN RN Yasmine Jordan RN RN ld1 Dillon Hess RN RN ll3 Carlos Chavira jl9 Corrections: (The following items were deleted from the chart) 10/07 19:47 15:17 d [email or web address] ll3
--- NOTE | 2022-10-07 15:18 | ER ---
Nurse's Notes [facility] Name: Minal Phillips Age: 87 yrs Sex: Female : 1935 Arrival Date: 10/07/2022 Time: 13:27 Bed 19 Private MD: Diagnosis: Acute on chronic diastolic (congestive) heart failure Presentation: 10/07 13:28 Acuity: JASMINA 1 ld1 13:28 Chief complaint: EMS states: CP and SOB that began today. EMS reports patient was 86% ss on RA. Coronavirus screen: Client denies travel out of the [place] in the last 14 days. Ebola Screen: Patient denies exposure to infectious person. Patient denies travel to an Ebola-affected area in the 21 days before illness onset. Initial Sepsis Screen: Does the patient meet any 2 criteria? RR > 20 per min. HR > 90 bpm. Does the patient have a suspected source of infection? No. Patient's initial sepsis screen is negative. Risk Assessment: Do you want to hurt yourself or someone else? Patient reports no desire to harm self or others. 13:28 Method Of Arrival: Ambulatory ss Historical: - Allergies: 14:01 PENICILLINS; ss - PMHx: 14:01 CAD; Congestive heart failure; GERD; Hypertensive disorder; pulmonary edema; Uterine CA;ss - PSHx: 14:01 Appendectomy; tumor removal RT breast; ss Screenin:02 Abuse screen: Denies threats or abuse. Denies injuries from another. Nutritional ss screening: No deficits noted. Tuberculosis screening: Never had TB. Assessment: 14:02 Reassessment: Pt reports that her chest discomfort was 10/10, but has improved to 8/10 ss after Bipap placed. Pt reports that the pain is tenderness at her incision from her recent pacemaker placement. 15:54 Reassessment: Initiated transfer to [facility]. Spoke with Robina, transfer ss coordinator. Awaiting call back. 18:52 Reassessment: Patient appears in no apparent distress at this time. Patient and/or ld1 family updated on plan of care and expected duration. Pain level reassessed. Patient is alert, oriented x 3, equal unlabored respirations, skin warm/dry/pink. Vital Signs: 13:47 BP 189 / 115; Pulse 96; Resp 22; Pulse Ox 100% on 45% BiPAP; ld1 14:02 BP 164 / 83; Pulse 86; Pulse Ox 100% on BiPAP; Pain 8/10; ss 14:46 BP 126 / 57; Pulse 84; Resp 20; Pulse Ox 99% on 45% BiPAP; ld1 15:53 BP 126 / 78; Pulse 80; Resp 18; Temp 98.3; Pulse Ox 100% on 45% BiPAP; Weight 68.04 kg; ld1 18:06 BP 133 / 75; Pulse 85; Resp 26; Pulse Ox 99% on R/A; ld1 18:52 BP 137 / 64; Pulse 89; Resp 18; Pulse Ox 97% on 3 lpm NC; ld1 ED Course: 13:27 Patient arrived in ED. ld1 13:28 Triage completed. ld1 13:40 Carlos Chavira is PHCP. jl9 13:40 Delvis Robbins MD is Attending Physician. jl9 13:47 Yasmine Jordan RN is Primary Nurse. ld1 14:00 Inserted saline lock: 20 gauge in left forearm, using aseptic technique. Blood ss collected. 14:01 Arm band placed on right wrist. ss 14:02 Patient has correct armband on for positive identification. Bed in low position. Call ss light in reach. Side rails up X2. Adult w/ patient. Client placed on continuous cardiac and pulse oximetry monitoring. NIBP monitoring applied. Warm blanket given. 14:20 XRAY Chest (1 view) In Process Unspecified. EDMS 15:50 transfer intiated by Vanessa Sow with Jessica Hernández Rn from the [facility] center. 18:09 administrative approval given by Umesh Cordoba/ patient has been accepted to [facility] rm 1414/ Dr. Enedelia Fong has accepted the patient in transfer/ report to be called to [phone]. 19:45 No provider procedures requiring assistance completed. Patient transferred, IV remains ll3 in place. Oxygen administration via nasal cannula \T\ 3L/min. Administered Medications: 14:46 Drug: Lasix (furosemide) 40 mg Route: IVP; Site: left antecubital; ld1 14:55 Drug: Nitro-Bid (nitroglycerin) Ointment 2 % 0.5 inches Route: Transdermal; Site: ld1 affected area; 14:56 Drug: Aspirin Chewable Tablet 324 mg Route: PO; ld1 Medication: 19:45 VIS not applicable for this client. ll3 Outcome: 15:17 ER care complete, transfer ordered by MD. cano 19:45 Transferred by ground EMS to [facility], [facility], Transfer form completed. ll3 X-rays sent w/ patient. 19:45 Condition: stable 19:45 Instructed on the need for transfer, Demonstrated understanding of instructions. 19:47 Patient left the ED. ll3 Signatures: Dispatcher [employer] EDMS Vanessa Keys, RN RN Antoinette Davila Lauren, RN RN ld1 Dillon Hess RN RN ll3 Carlos Chavira
[2022-10-07 20:15] VITALS: TEMP 98.3
[2022-10-07 20:18] VITALS: BP 137/64; O2SAT 97
--- NOTE | 2022-10-08 19:12 | EKG ---
Test Date: 2022-10-07 Test Time: 13:32:28 Optimization Consultant: CHUCKY MEASUREMENT RESULTS: Intervals: Rate: 109 HI: 154 QRSD: 142 QT: 372 QTc: 500 [place]: P: 23 HI: 154 QRS: -24 T: 120 INTERPRETIVE STATEMENTS: Sinus tachycardia with occasional premature ventricular complexes Left bundle branch block Abnormal ECG Compared to ECG 09/19/2022 14:41:36 Ventricular premature complex(es) now present Atrial fibrillation no longer present Electronically Signed On 10-08-22 19:10:27 STITCHER FEEDER by Carrillo Coley
== END 2022-10-07 19:47 | disposition short-term general hospital (02) ==
LOC: ER 13:26
DX: I50.33 Acute on chronic diastolic (congestive) heart failure (principal); I10 Essential (primary) hypertension; Z88.0 Allergy status to penicillin; Z20.822 Contact with and (suspected) exposure to COVID-19
CPT/HCPCS: 93005; 85025; 80048; 36415; 84484; 83880; 0241U; 71045; 82805; 94660 ×2; 96374; 99291; 99292; J1940

== ENCOUNTER 2022-12-03 22:28 | Inpatient (IN) | payer OTHER ==
[2022-12-03 23:53] LABS: Lymphocytes % 18.6 % (15.3-44.8); MCV 82.9 fL (80-100); MPV 6.6 fL (7.6-11.3); RBC Red Blood Cell Count 2.31 M/uL (3.86-4.86)
[2022-12-03 23:54] LABS: Hematocrit 19.2 % (36.0-45.0)
[2022-12-04 00:16] LABS: Potassium 3.6 mmol/L (3.5-5.1)
[2022-12-04 00:18] LABS: Troponin High Sensitivity 246.3 pg/mL (<58.9)
--- OUTSIDE RECORDS SUMMARY | 2022-12-04 00:21 | XMS REPORT | Continuity of Care Document ---
:1935 Author Organization [facility] t Address [address] [place] [address] Care Team Providers Name Role Phone Frank Putnam Attending Clinician Unavailable ROMIE ROSSI Attending Clinician Unavailable Donis Cruz MD Attending Clinician [phone] DONIS CRUZ Attending Clinician Unavailable DONIS CRUZ Attending Clinician Unavailable Jordan Moore MD Attending Clinician JORDAN MOORE Attending Clinician Unavailable Gaurang Melendez MD Attending Clinician [phone] INTIN MANE Attending Clinician Unavailable Jordan Moore MD Attending Clinician Romie Rossi MD Attending Clinician Hetal RUST, RamónarielVereniceSmita Attending Clinician Minal Joy MD Attending Clinician Stephen RUST, Leticia Rosa Attending Clinician [phone] MINAL JOY Attending Clinician Unavailable Cori RUST, Jimy Attending Clinician Markus RUST, Maria Munroe Attending Clinician Cherry RUST, Brii Warren Attending Clinician [phone] Bere RUST, Carolann Olivas Attending Clinician [phone] CAROLANN JIANG Attending Clinician Unavailable Jean-Paul RUST, Srinivasan Pride Attending Clinician Nitin Mane Attending Clinician Virtual, Surgeon Attending Clinician Unavailable ISAIAS SHARPE Attending Clinician Unavailable 1, [facility] Room Attending Clinician Unavailable CAYETANO WITNERS Attending Clinician Unavailable CHAPIS MUNROE Attending Clinician Unavailable Chapis Munroe Attending Clinician Colby Hodge Attending Clinician Canales_M Attending Clinician Unavailable Ariella Shaffer Attending Clinician Unavailable Love-Mbayo_A_AH Attending Clinician Unavailable Iliana Hollins Attending Clinician [phone] Frank Putnam Admitting Clinician Unavailable Yadira Gaston Admitting Clinician Unavailable JORDAN MOORE Admitting Clinician Unavailable LETICIA ENCISO Admitting Clinician Unavailable JIMY PEPPER Admitting Clinician Unavailable NAVEEN, NAJEOVANYM JANE Admitting Clinician Unavailable Naveen Nautaradha Burgess Admitting Clinician [phone] Canales_M Admitting Clinician Unavailable Love-Mbayo_A_AH Admitting Clinician Unavailable Payers Payer Name Policy Type Policy Number Effective Date Expiration Date S ource [facility] [id number] 2021 MGD MCR 00:00:00 [facility] [id number] 2021 OON 00:00:00 [employer] [id number] [employer] [id number] 2021 (MEDICARE 00:00:00 REPLACEMENT HMO) [employer] [facility] [place] - [id number] 2019 KEMAL 00:00:00 (MEDICARE REPLACEMENT/ADVAN TAGE - HMO) [employer] C1 [id number] [facility] Problems Condition Condition Condition Status Onset Resolution Last Treating Co mments Source Name Details Category Date Date Treatment Clinician Date Acute Acute Disease Active 2021-[address] [facility] exacerbati exacerbati 1-18 Sofia kes on of CHF on of CHF 00:00: Medi melchor (congestiv (congestiv 00 Ce nter e heart e heart failure) failure) Sepsis Sepsis Disease Active 2021-[address] [facility] [address] [facility] Medical 00 [facility] Atrial Atrial Disease Active 2021-[address] [facility] fibrillati fibrillati 0-31 Sofia kes on on 00:00: Medical 00 [facility] Lactic Lactic Disease Active 2021-[address] acidosis acidosis 0-31 [facility] 00:[facility]: Medical 00 [facility] SOB SOB Disease Active 2021-[address] [...] 0-31 [facility] disease disease 00:00: Medical 00 [facility] 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 0[facility] failure failure 00:00: Medical 00 [facility] Hypokalemi Hypokalemi Disease Active 2021-11 [facility] a 0-11 [facility] 00:00: of 00 Medicin e Port-A-Cat Port-A-Cat Disease Active 2021-11 [facility] h in [facility] h in place 0-05 Co llege 00:00: of 00 Medicin e 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 0-05 College disease disease 00:00: of 00 Medicin e Encounter Encounter Disease Active 2021-11 [facility] for for 0-05 College antineopla antineopla 00:00: of stic stic 00 Medicin chemothera chemothera e py py 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 14 Colleg e of both of both 00:00: of ovaries ovaries 00 Medicin e 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 9-14 [facility] disease disease 00:00: of involving involving 00 Medi [place]ael [place] coronary coronary artery of artery of [place] heart heart without without angina angina pectoris pectoris Congestive Congestive Disease Active [facility] heart heart - [facility] failure failure 00:00: of 00 Medicin e 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 08-03 College effusion effusion 00:00: of 00 Medicin e FALL FALL Diagnosis Active 2022-06-12 Mem oria Active 06-12 21:03:00 l 06/12/2022 00:00: Harish rodriguez 00 [facility] FLUID FLUID Diagnosis Active 2022-06-22 Me moria OVERLOAD, OVERLOAD, 06-12 21:57:00 l ACUTE CHF ACUTE CHF 00:00: Cristo suárez Active 00 06/12/2022 [facility] Primary Primary Problem Active [facility] malignant Malignant 05-22 Fami ly neoplasm [...] oria OVERLOAD, OVERLOAD, 21:57:00 l UNSPECIFIE UNSPECIFIE Dami Adhikari Active [facility] HEART HEART Diagnosis Active 2022-06-22 Mem oria FAILURE, FAILURE, 21:57:00 l UNSPECIFIE UNSPECIFIE Dami Adhikari Active [facility] Benign Benign Problem Active 2022-06-19 Sanya clementine essential essential 23:17:13 l hypertensi hypertensi Dami rico on (disorder) (disorder) Active Problem 06/19/2022 [facility] Dyslipidem Dyslipide Problem Active 2022-06-19 Memoria ia reshma 23:17:13 l (disorder) (disorder) He rmann Active Problem 06/19/2022 [facility] 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:17:13 l disease of disease of Dami nieves the heart the heart (disorder) (disorder) Active Problem 06/19/2022 [facility] Arthritis Arthritis Problem Active Com mon of right of knee, [facility] knee right - [facility] [id number] Right Problem Active [facility] sciatic [facility] nerve pain - [facility] [id number] Primary Problem Active Comm on osteoarthr Spirit itis of - [facility] right knee [facility] [id number] Pain in Problem Active Common joint of [facility] right knee - [facility] Allergies, Adverse Reactions, Alerts Allergy Allergy Status Severity Reaction(s) Onset Inactive Treating Comm ents Source Name Type Date Date Clinician PENICILL [facility]ergy [facility] Center Penicill Propensi Active [facility] in ty to 08-18 adverse 00:00: Medical reaction 00 Center s Penicill Propensi Active Pt does [facility] ty to 08-03 not [place] adverse 00:00: remember. of reaction 00 Medicin s to e drug Penicill DA Active [place] [facility] ins 05-18 Clear 00:00: Qiu 00 [facility] NO KNOWN Allergy Active [facility] PENICILL Allergy Active [place] [facility] to Family substanc Practic e e penicill penicill Active Memori a in [place] Social History Social Habit Start Date Stop Date Quantity Comments Source History [facility] St[facility] Binge Medical F[address] [facility] History [facility] Alcohol Comment Medical C enter History [facility] Non-Med Medical Center History of Tobacco [facility] - Use [facility] Exposure to 2022-11-05 2022-11-15 [facility] SARS-CoV-2 (event) 00:00:00 10:18:00 of Med icine Alcohol intake 2022-11-02 2022-11-[address] [facility] 00:00:00 00:00:00 non-drinker Medical Cente r (finding) History SDOH 2022-10-08 2022-10-[address] [facility] Housing Unable to 00:00:00 00:00:00 Medical Center Pay History [facility] 2022-09-20 2022-09-[address] [facility] Transport Med 00:00:00 00:00:[address] History [facility] 2022-09-20 2022-09-[address] [facility] Housing Places 00:00:00 00:00:00 Medical Ce nter Lived History [facility] 2022-09-20 2022-09-[address] [facility] Housing Homeless 00:00:00 00:00:00 Medical Center Last Year History [facility] 2022-08-23 2022-08-23 0 [facility] ge Physical Activity 00:00:00 00:00:00 of Medi cine DPW History [facility] 2022-08-23 2022-08-23 0 [facility] ge Physical Activity 00:00:00 00:00:00 of Medi cine MPS Tobacco use and 2022-08-18 2022-08-[address] Sofia kes exposure 00:00:00 00:00:00 Medical Center History [facility] 2022-08-18 2022-08-[address] [facility] Alcohol Frequency 00:00:00 00:00:00 [facility] Social History 2022-06-13 2022-06-13 [facility] 19:32:18 19:32:18 Sex Assigned At [address] [address] Sofia kes 00:00:00 00:00:00 Medical Center Smoking Status Start Date Stop Date Source Never smoked tobacco [facility] of Medicine Medications Ordered Filled Start Stop Current Ordering Indication Dosage Frequency Signature Comments Components Source Medication Medication Date Date Medication? Clinician (SIG) Name Name OXYGEN GAS 2021-11 Yes [facility] 2-27 College 10:32: of 28 Medicin e amlodipine 2021-11 Yes 5mg Take 5 mg [facility] (NORVASC) 5 2-27 by mouth [facility] e[facility] MG tablet 10:32: daily. of 28 Medicin e sulfamethox 2021-11- Yes 1{tbl} Take 1 [facility] azole-trime 2- 12-31 Tablet by Co llege thoprim 00:00: 05:59 mouth two of (BACTRIM 00 :00 times Medicin DS, SEPTRA daily for e DS) 800-160 3 days. MG per tablet aspirin 81 2021-11 Yes 81mg QD Take [address] MG EC 2-14 by mouth [facility] tablet 13:11: daily. [address] benzonatate 2021-11 Yes 200mg Take [address] (TESSALON) 2-14 mg by [facility] 200 MG 13:11: mouth 3 Medical capsule 06 (three) Center times daily as needed for Cough. magnesium 2021-11 Yes 400mg QD Take [address] oxide 2-14 mg by [facility]ukes (MAG-OX) 13:11: mouth Medical 400 mg 06 daily. Center (241.3 mg magnesium) tablet pantoprazol 2021-11 Yes 40mg QD Take [address] [facility] e 2-14 by mouth [facility] (PROTONIX) 13:11: daily. Medic al 40 MG 06 Center tablet potassium 2021-11 Yes 10meq Q.5D Take [address] chloride 2-14 mEq by Lukes (KLOR-CON-M 13:11: mouth 2 Med ical ) 10 MEQ CR 06 (two) Center tablet times daily. aspirin 81 2021-11 Yes 81mg QD Take [address] MG EC 2-14 by mouth [facility] tablet 13:11: daily. [address] benzonatate 2021-11 Yes 200mg Take [address] (TESSALON) 2-14 mg by [facility] 200 MG 13:11: mouth 3 Medical capsule 06 (three) Center times daily as needed for Cough. magnesium 2021-11 Yes 400mg QD Take [address] oxide 2-14 mg by [facility]ukes (MAG-OX) 13:11: mouth Medical 400 mg 06 daily. Center (241.3 mg magnesium) tablet pantoprazol 2021-11 Yes 40mg QD Take [address] [facility] e 2-14 by mouth [facility] (PROTONIX) 13:11: daily. Medic al 40 MG 06 Center tablet potassium 2021-11 Yes 10meq Q.5D Take [address] chloride 2-14 mEq by [facility]ukes (KLOR-CON-M 13:11: mouth 2 Med ical ) 10 MEQ CR 06 (two) Center tablet times daily. aspirin 81 2021-11 Yes 81mg QD Take [address] MG EC 2-14 by mouth [facility] tablet 13:11: daily. [address] benzonatate 2021-11 Yes 200mg Take [address] (TESSALON) 2-14 mg by [facility] 200 MG 13:11: mouth 3 Medical capsule 06 (three) Center times daily as needed for Cough. magnesium 2021-11 Yes 400mg QD Take [address] oxide 2-14 mg by [facility]ukes (MAG-OX) 13:11: mouth Medical 400 mg 06 daily. Center (241.3 mg magnesium) tablet pantoprazol 2021-11 Yes 40mg QD Take [address] [facility] e 2-14 by mouth [facility] (PROTONIX) 13:11: daily. Medic al 40 MG 06 Center tablet potassium 2021-11 Yes 10meq Q.5D Take [address] chloride 2-14 mEq by [facility]ukes (KLOR-CON-M 13:11: mouth 2 Med ical ) 10 MEQ CR 06 (two) Center tablet times daily. amlodipine 2021-11 Yes 5mg Take 5 mg [facility] (NORVASC) 5 2-06 by mouth [facility] MG tablet 09:28: daily. of 34 Medicin e hydrocodone 2021-11 Yes TAKE ONE [facility] -acetaminop 2-02 (1) [facility]) 00:00: TABLET(S) o f 5-325 mg 00 BY MOUTH Medicin tablet EVERY FOUR e HOURS NEEDED FOR PAIN hydrocodone 2021-11 Yes TAKE ONE [facility] -acetaminop 2-02 (1) [facility]) 00:00: TABLET(S) o f 5-325 mg 00 BY MOUTH Medicin tablet EVERY FOUR e HOURS NEEDED FOR PAIN OXYGEN GAS 2021-11 Yes [facility] 12-18 [place] 14:41: of 39 Medicin e OXYGEN GAS 2021-11 Yes [facility] 12-18 [place] 14:41: of 39 Medicin e OXYGEN GAS 2021-11 Yes [facility] 12-18 [place] 07:53: of 36 Medicin e potassium 2021-11 Yes 10meq Take 1 [facility] chloride 1-29 Tablet by Ld hernandez (KDUR) 10 00:00: mouth two of MEQ tablet 00 times Medicin daily. e bumetanide 2021-11 Yes 2mg Take 2 [facility] (BUMEX) 1 1-29 Tablets by [facility] MG tablet 00:00: mouth of 00 daily. Medicin e potassium 2021-11 Yes 10meq Take 1 [facility] chloride 1-29 Tablet by Colleg e (KDUR) 10 00:00: mouth two of MEQ tablet 00 times Medicin daily. e bumetanide 2021-11 Yes 2mg Take 2 [facility] (BUMEX) 1 1-29 Tablets by [facility] MG tablet 00:00: mouth of 00 daily. Medicin e potassium 2021-11 Yes 10meq Take 1 [facility] chloride 1-29 Tablet by Colleg e (KDUR) 10 00:00: mouth two of MEQ tablet 00 times Medicin daily. e bumetanide 2021-11 Yes 2mg Take 2 [facility] (BUMEX) 1 1-29 Tablets by [facility] MG tablet 00:00: mouth of 00 daily. Medicin e potassium 2021-11 Yes 10meq Take 1 [facility] chloride 1-29 Tablet by Colleg e (KDUR) 10 00:00: mouth two of MEQ tablet 00 times Medicin daily. e bumetanide 2021-11 Yes 2mg Take 2 [facility] (BUMEX) 1 1-29 Tablets by [facility] MG tablet 00:00: mouth of 00 daily. Medicin e tramadol 2021-11 Yes 1{tbl} Take 1 [facility] (ULTRAM) 50 1-25 Tablet by Col lege MG tablet 00:00: mouth of 00 every 8 Medicin hours as e needed. tramadol 2021-11 Yes 1{tbl} Take 1 [facility] (ULTRAM) 50 1-25 Tablet by Col lege MG tablet 00:00: mouth of 00 every 8 Medicin hours as e needed. hydrocodone 2021-11 Yes TAKE ONE [facility] -acetaminop 12-13 (1) [facility]) 00:00: TABLET(S) o f 5-325 mg 00 BY MOUTH Medicin tablet EVERY FOUR e HOURS NEEDED FOR PAIN. hydrocodone 2021-11- No TAKE ONE [facility] -acetaminop 12-13 (1) [facility] Int) 00:00: 00:00 TABLET(S) of 5-325 mg 00 :00 BY MOUTH Medicin tablet EVERY FOUR e HOURS NEEDED FOR PAIN. ondansetron 2021-11 Yes Take 1 tab [facility] (ZOFRAN) 8 1-22 by mouth Colle ge mg tablet 00:00: every 8 of 00 hours as Medicin needed e (nausea post-chemo therapy, Days 1,2, and 3) ondansetron 2021-11 Yes Take 1 tab [facility] (ZOFRAN) 8 -22 by mouth Colle ge mg tablet 00:00: every 8 of 00 hours as Medicin needed e (nausea post-chemo therapy, Days 1,2, and 3) ondansetron 2021-11 Yes Take 1 tab [facility] (ZOFRAN) 8 -22 by mouth Colle ge mg tablet 00:00: every 8 of 00 hours as Medicin needed e (nausea post-chemo therapy, Days 1,2, and 3) ondansetron 2021-11 Yes Take 1 tab [facility] (ZOFRAN) 8 - by mouth Colle ge mg tablet 00:00: every 8 of 00 hours as Medicin needed e (nausea post-chemo therapy, Days 1,2, and 3) metoprolol 2021-11- No 25mg QD Take [address] [facility] [address] succinate -10 11-22 tablet (25 [facility] (TOPROL-XL) 00:00: 23:59 mg total) Medical 25 MG 24 hr 00 :00 by mouth Cent er tablet daily for 30 days. metoprolol 2021-11- Yes 25mg QD Take [address] succinate -10 11-22 tablet (25 Joss[facility] es (TOPROL-XL) 00:00: 23:59 mg total) Medical 25 MG 24 hr 00 :00 by mouth Cent er tablet daily for 30 days. metoprolol 2021-11- Yes 25mg QD Take [address] succinate -10 11-22 tablet (25 Joss[facility] es (TOPROL-XL) 00:00: 23:59 mg total) Medical 25 MG 24 hr 00 :00 by mouth Cent er tablet daily for 30 days. metoprolol 2021-11- Yes 25mg QD Take [address] succinate -22 -22 tablet (25 Joss[facility] es (TOPROL-XL) 00:00: 23:59 mg total) Medical 25 MG 24 hr 00 :00 by mouth Cent er tablet daily for 30 days. metoprolol 2021-11- Yes 25mg QD Take [address] succinate 1-22 12-22 tablet (25 Jossue es (TOPROL-XL) 00:00: 23:59 mg total) Medical 25 MG 24 hr 00 :00 by mouth Cent er tablet daily for 30 days. metoprolol 2021-11- Yes 25mg QD Take [address] succinate 12-11 tablet (25 Jossue es (TOPROL-XL) 00:00: 23:59 mg total) Medical 25 MG 24 hr 00 :00 by mouth Cent er tablet daily for 30 days. metoprolol 2021-11- No 25mg QD Take [address] succinate 12-11 tablet (25 Jossue es (TOPROL-XL) 00:00: 23:59 mg total) Medical 25 MG 24 hr 00 :00 by mouth Cent er tablet daily for 30 days. metoprolol 2021-11- No 25mg QD Take [address] succinate 12-11 tablet (25 Jossue es (TOPROL-XL) 00:00: 23:59 mg total) Medical 25 MG 24 hr 00 :00 by mouth Cent er tablet daily for 30 days. aspirin 81 2021-11 Yes 81mg QD Take [address] MG EC 1-21 by mouth [facility]ukes tablet 17:12: daily. [address] benzonatate 2021-11 Yes 200mg Take [address] (TESSALON) 1-21 mg by [facility]ukes 200 MG 17:12: mouth 3 Medical capsule 33 (three) Center times daily as needed for Cough. magnesium 2021-11 Yes 400mg QD Take [address] oxide 1-21 mg by [facility]ukes (MAG-OX) 17:12: mouth Medical 400 mg 33 daily. Center (241.3 mg magnesium) tablet pantoprazol 2021-11 Yes 40mg QD Take [address] [facility] e 1-21 by mouth [facility]ukes (PROTONIX) 17:12: daily. Medic al 40 MG 33 Center tablet potassium 2021-11 Yes 10meq Q.5D Take [address] chloride 1-21 mEq by Lukes (KLOR-CON-M 17:12: mouth 2 Med ical ) 10 MEQ CR 33 (two) Center tablet times daily. aspirin 81 2021-11 Yes 81mg QD Take [address] MG EC 1-21 by mouth [facility]ukes tablet 17:12: daily. [address] benzonatate 2021-11 Yes 200mg Take [address] (TESSALON) 1-21 mg by [facility]ukes 200 MG 17:12: mouth 3 Medical capsule 33 (three) Center times daily as needed for Cough. magnesium 2021-11 Yes 400mg QD Take [address] oxide 1-21 mg by Lukes (MAG-OX) 17:12: mouth Medical 400 mg 33 daily. Center (241.3 mg magnesium) tablet pantoprazol 2021-11 Yes 40mg QD Take [address] [facility] e 1-21 by mouth [facility]ukes (PROTONIX) 17:12: daily. Medic al 40 MG 33 Center tablet potassium 2021-11 Yes 10meq Q.5D Take [address] chloride 1-21 mEq by Lukes (KLOR-CON-M 17:12: mouth 2 Med ical ) 10 MEQ CR 33 (two) Center tablet times daily. aspirin 81 2021-11 Yes 81mg QD Take [address] MG EC 1-21 by mouth [facility] tablet 17:12: daily. [address] benzonatate 2021-11 Yes 200mg Take [address] (TESSALON) 1-21 mg by [facility]ukes 200 MG 17:12: mouth 3 Medical capsule 33 (three) Center times daily as needed for Cough. magnesium 2021-11 Yes 400mg QD Take [address] oxide 1-21 mg by Lukes (MAG-OX) 17:12: mouth Medical 400 mg 33 daily. Center (241.3 mg magnesium) tablet pantoprazol 2021-11 Yes 40mg QD Take [address] [facility] e 1-21 by mouth [facility]ukes (PROTONIX) 17:12: daily. Medic al 40 MG 33 Center tablet potassium 2021-11 Yes 10meq Q.5D Take [address] chloride 1-21 mEq by Lukes (KLOR-CON-M 17:12: mouth 2 Med ical ) 10 MEQ CR 33 (two) Center tablet times daily. aspirin 81 2021-11 Yes 81mg QD Take [address] MG EC 1-21 by mouth [facility]ukes tablet 17:12: daily. [place] [id number] Center benzonatate 2021-11 Yes 200mg Take [address] (TESSALON) 1-21 mg by [facility]ukes 200 MG 17:12: mouth 3 Medical capsule 33 (three) Center times daily as needed for Cough. magnesium 2021-11 Yes 400mg QD Take [address] oxide 1-21 mg by Lukes (MAG-OX) 17:12: mouth Medical 400 mg 33 daily. Center (241.3 mg magnesium) tablet pantoprazol 2021-11 Yes 40mg QD Take [address] [facility] e 1-21 by mouth [facility]ukes (PROTONIX) 17:12: daily. Medic al 40 MG 33 Center tablet potassium 2021-11 Yes 10meq Q.5D Take [address] chloride 1-21 mEq by Lukes (KLOR-CON-M 17:12: mouth 2 Med ical ) 10 MEQ CR 33 (two) Center tablet times daily. aspirin 81 2021-11 Yes 81mg QD Take [address] MG EC 1-21 by mouth [facility] tablet 17:12: daily. Medical 33 Center benzonatate 2021-11 Yes 200mg Take [address] (TESSALON) 1-21 mg by [facility]ukes 200 MG 17:12: mouth 3 Medical capsule 33 (three) Center times daily as needed for Cough. magnesium 2021-11 Yes 400mg QD Take [address] oxide 1-21 mg by Lukes (MAG-OX) 17:12: mouth Medical 400 mg 33 daily. Center (241.3 mg magnesium) tablet pantoprazol 2021-11 Yes 40mg QD Take [address] [facility] e 1-21 by mouth [facility]ukes (PROTONIX) 17:12: daily. Medic al 40 MG 33 Center tablet potassium 2021-11 Yes 10meq Q.5D Take [address] chloride 1-21 mEq by Lukes (KLOR-CON-M 17:12: mouth 2 Med ical ) 10 MEQ CR 33 (two) Center tablet times daily. albuterol 2021-11 No 2.5mg Q.25D Take 2.[address] (PROVENTIL) 1-21 11-21 mg by [facility]ukes 2.5 mg/0.5 13:06: 00:00 nebulizati Medical mL Nebu 44 :00 on 4 Center nebulizer (four) solution times daily. albuterol 2021-11 No 2.5mg Q.25D Take 2.[address] (PROVENTIL) 1-21 11-21 mg by [facility] 2.5 mg/0.5 13:06: 00:00 nebulizati Medical mL Nebu 44 :00 on 4 Center nebulizer (four) solution times daily. albuterol 2021-11- No 2.5mg Q.25D Take 2.[address] (PROVENTIL) 1-21 11-21 mg by [facility]ukes 2.5 mg/0.5 13:06: 00:00 nebulizati Medical mL Nebu 44 :00 on 4 Center nebulizer (four) solution times daily. albuterol 2021-11- No 2.5mg Q.25D Take 2.[address] (PROVENTIL) 1-21 11-21 mg by [facility]ukes 2.5 mg/0.5 13:06: 00:00 nebulizati Medical mL Nebu 44 :00 on 4 Center nebulizer (four) solution times daily. albuterol 2021-11- No 2.5mg Q.25D Take 2.[address] (PROVENTIL) 1-21 11-21 mg by [facility] 2.5 mg/0.5 13:06: 00:00 nebulizati Medical mL Nebu 44 :00 on 4 Center nebulizer (four) solution times daily. albuterol 2021-11- No 2.5mg Q.25D Take 2.[address] (PROVENTIL) 1-21 11-21 mg by [facility] 2.5 mg/0.5 13:06: 00:00 nebulizati Medical mL Nebu 44 :00 on 4 Center nebulizer (four) solution times daily. albuterol 2021-11- No 2.5mg Q.25D Take 2.[address] (PROVENTIL) 1-21 11-21 mg by [facility] 2.5 mg/0.5 13:06: 00:00 nebulizati Medical mL Nebu 44 :00 on 4 Center nebulizer (four) solution times daily. albuterol 2021-11- No 2.5mg Q.25D Take 2.[address] (PROVENTIL) 1-21 11-21 mg by [facility] 2.5 mg/0.5 13:06: 00:00 nebulizati Medical mL Nebu 44 :00 on 4 Center nebulizer (four) solution times daily. bumetanide 2021-11 Yes 2mg Take 2 mg [facility] (BUMEX) 2 12-10 by mouth Colle ge MG tablet 00:00: 05:59 two times of 00 :00 daily. Medicin e bumetanide 2021-11- No 2mg Take [address] [facility] (BUMEX) 2 12-10 tablet (2 Luke s MG tablet 00:00: 23:59 mg total) Me dical 00 :00 by mouth 2 Center (two) times daily for 30 days. bumetanide 2021-11- Yes 2mg Take [address] [facility] (BUMEX) 2 12-10 tablet (2 Luke s MG tablet 00:00: 23:59 mg total) Me dical 00 :00 by mouth 2 Center (two) times daily for 30 days. bumetanide 2021-11- Yes 2mg Take [address] [facility] [address] (BUMEX) 2 12-10 tablet (2 Luke s MG tablet 00:00: 23:59 mg total) Me dical 00 :00 by mouth 2 Center (two) times daily for 30 days. bumetanide 2021-11- Yes 2mg Take [address] [facility] [address] (BUMEX) 2 12-10 tablet (2 Luke s MG tablet 00:00: 23:59 mg total) Me dical 00 :00 by mouth 2 Center (two) times daily for 30 days. bumetanide 2021-11- Yes 2mg Take [address] [facility] [address] (BUMEX) 2 12-10 tablet (2 Luke s MG tablet 00:00: 23:59 mg total) Me dical 00 :00 by mouth 2 Center (two) times daily for 30 days. bumetanide 2021-11- Yes 2mg Take [address] [facility] [address] (BUMEX) 2 12-10 tablet (2 Luke s MG tablet 00:00: 23:59 mg total) Me dical 00 :00 by mouth 2 Center (two) times daily for 30 days. bumetanide 2021-11- No 2mg Take [address] [facility] [address] (BUMEX) 2 12-10 tablet (2 Luke s MG tablet 00:00: 23:59 mg total) Me dical 00 :00 by mouth 2 Center (two) times daily for 30 days. bumetanide 2021-11- 2mg Take [address] [address] (BUMEX) 2 1-21 12-21 tablet (2 Luke s MG tablet 00:00: 23:59 mg total) Me dical 00 :00 by mouth 2 Center (two) times daily for 30 days. rosuvastati 2021-11 Yes 10mg QD Take [address] n (CRESTOR) 1-10 tablet (10 Sofia kes 10 MG 00:00: mg total) Medical tablet 00 by mouth Center daily. rosuvastati 2021-11 Yes 10mg QD Take [address] n (CRESTOR) 1-10 tablet (10 Sofia kes 10 MG 00:00: mg total) Medical tablet 00 by mouth Center daily. rosuvastati 2021-11 Yes 10mg QD Take [address] n (CRESTOR) 1-10 tablet (10 Sofia kes 10 MG 00:00: mg total) Medical tablet 00 by mouth Center daily. rosuvastati 2021-11 Yes 10mg QD Take [address] n (CRESTOR) 1-10 tablet (10 Sofia kes 10 MG 00:00: mg total) Medical tablet 00 by mouth Center daily. rosuvastati 2021-11 Yes 10mg QD Take [address] n (CRESTOR) 1-10 tablet (10 Sofia kes 10 MG 00:00: mg total) Medical tablet 00 by mouth Center daily. rosuvastati 2021-11 Yes 10mg QD Take [address] [facility] (CRESTOR) 1-10 tablet (10 [facility] 10 MG 00:00: mg total) Medical tablet 00 by mouth Center daily. rosuvastati 2021-11 Yes 10mg QD Take [address] [facility] (CRESTOR) 1-10 tablet (10 [facility] 10 MG 00:00: mg total) Medical tablet 00 by mouth Center daily. rosuvastati 2021-11 Yes 10mg QD Take [address] [facility] (CRESTOR) 1-10 tablet (10 [facility] 10 MG 00:00: mg total) Medical tablet 00 by mouth Center daily. rosuvastati 2021-11 Yes 10mg QD Take [address] [facility] (CRESTOR) 1-10 tablet (10 [facility] 10 MG 00:00: mg total) Medical tablet 00 by mouth Center daily. rosuvastati 2021-11 Yes 10mg Take 10 mg [facility] n (CRESTOR) 1-10 by mouth [facility] 10 MG 00:00: daily. of tablet 00 Medicin e rosuvastati 2021-11 Yes 10mg Take 10 mg [facility] n (CRESTOR) 1-10 by mouth [facility] 10 MG 00:00: daily. of tablet 00 Medicin e aspirin 81 2021-11 Yes 81mg QD Take [address] [facility] EC -09 [facility] mouth [facility]: daily. Medical 05 Center albuterol 2021-11 Yes 2.5mg Q.25D Take 2.5 [...] 05 (two) Center tablet times daily. bumetanide 2021-11- No 1mg Q.5D Take [address] [facility] (BUMEX) 1 11-28 by mouth 2 [facility] tablet 16:25: 00:00 (two) Medica l 06 :00 times Center daily. bumetanide 2021-11- No 1mg Q.5D Take [address] [facility] (BUMEX) 1 11-28 by mouth 2 [facility] MG tablet 16:25: 00:00 (two) Medica l 06 :00 times Center daily. bumetanide 2021-11 No 1mg Q.5D Take [address] [facility] (BUMEX) 1 11-28 by mouth 2 [facility] MG tablet 16:25: 00:00 (two) Medica l 06 :00 times Center daily. bumetanide 2021-11 No 1mg Q.5D Take [address] [facility] (BUMEX) 1 11-28 by mouth 2 [facility] MG tablet 16:25: 00:00 (two) Medica l 06 :00 times Center daily. bumetanide 2021-11 No 1mg Q.5D Take [address] (BUMEX) 1 11-28 by mouth 2 [facility] MG tablet 16:25: 00:00 (two) Medica l 06 :00 times Center daily. bumetanide 2021-11 No 1mg Q.5D Take [address] (BUMEX) 1 11-28 by mouth 2 [facility] MG tablet 16:25: 00:00 (two) Medica l 06 :00 times Center daily. bumetanide 2021-11 No 1mg Q.5D Take [address] (BUMEX) 1 11-28 by mouth 2 [facility] MG tablet 16:25: 00:00 (two) Medica l 06 :00 times Center daily. bumetanide 2021-11- No 1mg Q.5D Take [address] (BUMEX) 1 11-28 by mouth 2 [facility] MG tablet 16:25: 00:00 (two) Medica l 06 :00 times Center daily. bumetanide 2021-11 No 1mg Q.5D Take [address] (BUMEX) 1 11-28 by mouth 2 [facility] MG tablet 16:25: 00:00 (two) Medica l 06 :00 times Center daily. metoprolol 2021-11 No 25mg Q.5D Take [address] [facility] tartrate 11-28 by mouth 2 [facility] (LOPRESSOR) 15:51: 00:00 (two) Medi melchor 25 MG 26 :00 times Center tablet daily. predniSONE 2022-1 2022- No 20mg QD Take [address] [facility] (DELTASONE) 11-28 by mouth [facility] 20 MG 15:51: 00:00 daily. Medical tablet 26 :00 Center losartan 2021-11- No 25mg QD Take [address] [facility] [address] [facility] (COZAAR) 25 11-28 by mouth [facility] MG tablet 15:51: 00:00 daily. Medic al 26 :00 Center metoprolol 2021-11- No 25mg Q.5D Take [address] [facility] tartrate 11-28 by mouth 2 [facility] (LOPRESSOR) 15:51: 00:00 (two) Medi melchor 25 MG 26 :00 times Center tablet daily. predniSONE 2021-11- No 20mg QD Take [address] [facility] (DELTASONE) 11-28 by mouth [facility] 20 MG 15:51: 00:00 daily. Medical tablet 26 :00 [facility] losartan 2021-11- No 25mg QD Take [address] [facility] [address] [facility] (COZAAR) 25 11-28 by mouth [facility] MG tablet 15:51: 00:00 daily. Medic al 26 :00 Center metoprolol 2021-11- No 25mg Q.5D Take [facility] (COZAAR) 25 11-28 by mouth [facility] MG tablet 15:51: 00:00 daily. Medic al 26 :00 Center metoprolol 2021-11- No 25mg Q.5D Take [facility] (COZAAR) 25 11-28 by mouth [facility] MG tablet 15:51: 00:00 daily. Medic al 26 :00 Center metoprolol 2021-11- No 25mg Q.5D Take [address] [facility] tartrate 11-28 by mouth 2 [facility] (LOPRESSOR) 15:51: 00:00 (two) Medi melcohr 25 MG 26 :00 times Center tablet daily. predniSONE 2021-11- No 20mg QD Take [address] [facility] (DELTASONE) 11-28 by mouth [facility] 20 MG 15:51: 00:00 daily. Medical tablet 26 :00 Center losartan 2021-11- No 25mg QD Take [address] [facility] [address] [facility] (COZAAR) 25 11-28 by mouth [facility] MG tablet 15:51: 00:00 daily. Medic al 26 :00 Center metoprolol 2021-11- No 25mg Q.5D Take [facility] (COZAAR) 25 11-28 by mouth [facility] MG tablet 15:51: 00:00 daily. Medic al 26 :00 Center metoprolol 2021-11- No 25mg Q.5D Take [facility] (COZAAR) 25 11-28 by mouth [facility] MG tablet 15:51: 00:00 daily. Medic al 26 :00 Center metoprolol 2021-11- No 25mg Q.5D Take [address] [facility] tartrate 11-28 by mouth 2 [facility] (LOPRESSOR) 15:51: 00:00 (two) Medi melcohr 25 MG 26 :00 times Center tablet daily. predniSONE 2021-11- No 20mg QD Take [address] [facility] (DELTASONE) 11-28 by mouth [facility] 20 MG 15:51: 00:00 daily. Medical tablet 26 :00 Center losartan 2021-11- No 25mg QD Take [address] [facility] [address] [facility] (COZAAR) 25 11-28 by mouth [facility] MG tablet 15:51: 00:00 daily. Medic al 26 :00 Center metoprolol 2021-11- No 25mg Q.5D Take [facility] (COZAAR) 25 11-28 by mouth [facility] MG tablet 15:51: 00:00 daily. Medic al 26 :00 Center furosemide 2021-11- No [facility]mg [facility] (LASIX) [facility]-28 [facility] 13:00: 11:58 Medical 20 mg 00 :00 Center furosemide 2021-11- No [facility] (LASIX) 11-[facility] 13:00: 11:58 Medical 20 mg 00 :00 Center furosemide 2021-11- No [facility] (LASIX) 11-[facility] 13:00: 11:58 Medical 20 mg 00 :00 Fiatt furosemide 2021-11- No [facility]mg [facility] (LASIX) 11-28 [facility] 13:00: 11:58 Medical 20 mg 00 :00 Fiatt furosemide 2021-11- No [facility] (LASIX) 11-28 [facility] 13:00: 11:58 Medical 20 mg 00 :00 Fiatt furosemide 2021-11- No [facility] (LASIX) 11-28 [facility] 13:00: 11:58 Medical 20 mg 00 :00 Fiatt furosemide 2021-11- No [facility]mg [facility] (LASIX) 11-28 [facility] 13:00: 11:58 Medical 20 mg 00 :00 Fiatt furosemide 2021-11- No [facility] (LASIX) 11-28 [facility] 13:00: 11:58 Medical 20 mg 00 :00 Fiatt furosemide 2021-11- No [facility] (LASIX) 11-28 [facility] 13:00: 11:58 Medical 20 mg 00 :00 Fiatt propranoloL 2021-11 Yes 5mg Q.5D Take 0.[address] [facility] [address] [facility] (INDERAL) 11-28 tablets (5 [facility] 10 MG 00:00: mg total) Medical tablet 00 by mouth 2 Center (two) times daily. bumetanide 2021-11 Yes 1mg Q.5D [facility] (1 [facility] tablet 00:00: mg total) Med ical 00 by mouth 2 Center (two) times daily. propranolol 2021-11 Yes 5mg Take 5 mg [facility] (INDERAL) 11-28 by mouth [facility] 10 MG 00:00: two times of tablet 00 daily. Medicin e propranolol 2021-11 Yes 5mg Take 5 mg [facility] (INDERAL) 11-28 [facility] mouth [facility] 10 MG 00:00: two times of tablet 00 daily. Medicin e propranoloL 2021-11- No 5mg Q.5D Take 0.[address] [facility] (INDERAL) 11-28 11-21 tablets (5 [facility] 10 MG 00:00: 00:00 mg total) Medica l tablet 00 :00 by mouth 2 Center (two) times daily. bumetanide 2021-11- No 1mg Q.5D Take [address] [facility] (BUMEX) 1 11-28 tablet (1 [facility] MG tablet 00:00: 00:00 mg total) Me dical 00 :00 by mouth 2 Center (two) times daily. propranoloL 2021-11- No 5mg Q.5D Take 0.[address] (INDERAL) 11-28 tablets (5 [facility] 10 MG 00:00: 00:00 mg total) Medica l tablet 00 :00 by mouth 2 Center (two) times daily. bumetanide 2021-11- No 1mg Q.5D Take [address] [facility] (BUMEX) 1 11-28 tablet (1 [facility] MG tablet 00:00: 00:00 mg total) Me dical 00 :00 by mouth 2 Center (two) times daily. propranoloL 2021-11- No 5mg Q.5D Take 0.[address] (INDERAL) 11-28 tablets (5 [facility] 10 MG 00:00: 00:00 mg total) Medica l tablet 00 :00 by mouth 2 Center (two) times daily. bumetanide 2021-11- No 1mg Q.5D Take [address] [facility] (BUMEX) 1 11-28 tablet (1 [facility] MG tablet 00:00: 00:00 mg total) Me dical 00 :00 by mouth 2 Center (two) times daily. propranoloL 2021-11- No 5mg Q.5D Take 0.[address] (INDERAL) 11-28 tablets (5 [facility] 10 MG 00:00: 00:00 mg total) Medica l tablet 00 :00 by mouth 2 Center (two) times daily. bumetanide 2021-11- No 1mg Q.5D Take [address] [facility] (BUMEX) 1 11-28 tablet (1 [facility] MG tablet 00:00: 00:00 mg total) Me dical 00 :00 by mouth 2 Center (two) times daily. propranoloL 2021-11- No 5mg Q.5D Take 0.[address] (INDERAL) 11-28 tablets (5 [facility] 10 MG 00:00: 00:00 mg total) Medica l tablet 00 :00 by mouth 2 Center (two) times daily. bumetanide 2021-11- No 1mg Q.5D Take [address] [facility] (BUMEX) 1 11-28 tablet (1 [facility] MG tablet 00:00: 00:00 mg total) Me dical 00 :00 by mouth 2 Center (two) times daily. propranoloL 2021-11- No 5mg Q.5D Take 0.[address] (INDERAL) 11-28 tablets (5 [facility] 10 MG 00:00: 00:00 mg total) Medica l tablet 00 :00 by mouth 2 Center (two) times daily. bumetanide 2021-11- No 1mg Q.5D Take [address] [facility] (BUMEX) 1 11-28 tablet (1 [facility] MG tablet 00:00: 00:00 mg total) Me dical 00 :00 by mouth 2 Center (two) times daily. propranoloL 2021-11- No 5mg Q.5D Take 0.[address] (INDERAL) 11-28 tablets (5 [facility] 10 MG 00:00: 00:00 mg total) Medica l tablet 00 :00 by mouth 2 Center (two) times daily. bumetanide 2021-11- No 1mg Q.5D Take [address] [facility] (BUMEX) 1 11-28 tablet (1 [facility] MG tablet 00:00: 00:00 mg total) Me dical 00 :00 by mouth 2 Center (two) times daily. propranoloL 2021-11- No 5mg Q.5D Take 0.[address] (INDERAL) 11-28 tablets (5 [facility] 10 MG 00:00: 00:00 mg total) Medica l tablet 00 :00 by mouth 2 Center (two) times daily. bumetanide 2021-11- No 1mg Q.5D Take [address] [facility] (BUMEX) 1 11-28 tablet (1 [facility] MG tablet 00:00: 00:00 mg total) Me dical 00 :00 by mouth 2 Center (two) times daily. OXYGEN GAS 2021-11 Yes [facility] 0-11 [place] 08:36: of 45 Medicin e metoprolol 2021-11 Yes 25mg Take 1 [facility] (TOPROL-XL) 0-11 Tablet by [facility] 25 MG XL 00:00: mouth of tablet 00 daily. Medicin e lidocaine-p 2021-11 Yes Apply a [facility] rilocaine 0-11 thin [facility] (EMLA) 00:00: coating of 2.5-2.5 % 00 over the Medici n cream port site e topically 30 min prior to infusion. metoprolol 2021-11 Yes 25mg Take 1 [facility] (TOPROL-XL) 0-11 Tablet by Col [facility]ge 25 MG XL 00:00: mouth of tablet 00 daily. Medicin e lidocaine-p 2021-11 Yes Apply a [facility] rilocaine 0-11 thin [place] (EMLA) 00:00: coating of 2.5-2.5 % 00 over the Medici n cream port site e topically 30 min prior to infusion. metoprolol 2021-11 Yes 25mg Take 1 [facility] (TOPROL-XL) 0-11 Tablet by Col [facility]ge 25 MG XL 00:00: mouth of tablet 00 daily. Medicin e lidocaine-p 2021-11 Yes Apply a [facility] rilocaine 0-11 thin [place] (EMLA) 00:00: coating of 2.5-2.5 % 00 over the Medici n cream port site e topically 30 min prior to infusion. metoprolol 2021-11 Yes 25mg Take 1 [facility] (TOPROL-XL) 0-11 Tablet by Col [facility]ge 25 MG XL 00:00: mouth of tablet 00 daily. Medicin e lidocaine-p 2021-11 Yes Apply a [facility] rilocaine 0-11 thin [facility] (EMLA) 00:00: coating of 2.5-2.5 % 00 over the Medici n cream port site e topically 30 min prior to infusion. metoprolol 2021-11 Yes 25mg Take 1 [facility] (TOPROL-XL) 0-11 Tablet by Col [facility] 25 MG XL 00:00: mouth of tablet 00 daily. Medicin e OXYGEN GAS 2021-11 Yes [facility] 0-05 [place] 07:31: of 51 Medicin e Sennosides 2021-11 Yes 1{tbl} Take 1 [facility] (SENNA) 8.6 0-05 Tablet by [facility] MG TABS 00:00: mouth of 00 daily. Medicin e Sennosides 2021-11 Yes 1{tbl} Take 1 [facility] (SENNA) 8.6 0-05 Tablet by Col [facility] MG TABS 00:00: mouth of 00 daily. Medicin e Sennosides 2021-11 Yes 1{tbl} Take 1 [facility] (SENNA) 8.6 0-05 Tablet by Col [facility] MG TABS 00:00: mouth of 00 daily. Medicin e Sennosides 2021-11 Yes 1{tbl} Take 1 [facility] (SENNA) 8.6 0-05 Tablet by Col [facility] MG TABS 00:00: mouth of 00 daily. Medicin e hydrocodone 2021-11 Yes 1{tbl} Take 1 [facility] -acetaminop 0-05 Tablet by [facility] hen (NORCO) 00:00: mouth of 5-325 mg 00 every 4 Medicin tablet hours as e needed for Pain. Sennosides 2021-11 Yes 1{tbl} Take 1 [facility] (SENNA) 8.6 0-05 Tablet by Col [facility] MG TABS 00:00: mouth of 00 daily. Medicin e hydrocodone 2021-11 Yes 1{tbl} Take 1 [facility] -acetaminop 0-05 Tablet by [facility] (NORCO) 00:00: mouth of 5-325 mg 00 every 4 Medicin tablet hours as e needed for Pain. Sennosides 2021-11 Yes 1{tbl} Take 1 [facility] (SENNA) 8.6 0-05 Tablet by [facility] MG TABS 00:00: mouth of 00 daily. Medicin e aspirin 81 Yes 81mg QD Take [address] [facility] 9-30 [facility]: daily. [address] aspirin 81 0 Yes 81mg QD Take [address] [facility] EC 9-30 [facility] mouth [facility] 18:28: daily. [address] aspirin 81 Yes 81mg QD Take [address] MG EC 9-30 [facility] mouth [facility] 18:28: daily. Medical 19 Center magnesium 2021-0 Yes 400mg QD [...] MG 44 times Center tablet daily. pantoprazol 0 Yes 40mg QD Take [address] [facility] 9-29 by mouth [facility] (PROTONIX) 11:09: daily. Medic al 40 MG 44 Center tablet predniSONE 0 Yes 20mg QD Take [address] (DELTASONE) 9-29 by mouth [facility] 20 MG 11:09: daily. Medical tablet 44 Center losartan 0 Yes 25mg QD Take [facility] mg [facility] [...] (two) Medical 38 times Center daily. albuterol 0 Yes 2.5mg Q.25D Take 2.5 [facility] [...] 4 Center nebulizer (four) solution times daily. potassium 2021- No 10meq Take 10 [facility] chloride - 11-29 mEq by [place] (KDUR) 10 00:00: 00:00 mouth. of MEQ tablet 00 :00 Medicin e mirtazapine 0 Yes 1{tbl} Take 1 [facility] (REMERON) 9-10 Tablet by Colle ge 15 MG 00:00: mouth of tablet 00 nightly. Medicin e mirtazapine 2021-0 Yes 1{tbl} Take 1 [facility] (REMERON) 9-10 Tablet by Colle ge 15 MG 00:00: mouth of tablet 00 nightly. Medicin e bumetanide 0 Yes 1mg Take 1 mg [facility] (BUMEX) 1 9-10 by mouth. Colle ge MG tablet 00:00: of 00 Medicin e metoprolol 2021-0 Yes 25mg Take 25 mg [facility] (LOPRESSOR) 9-10 by mouth. [facility] 25 MG 00:00: of tablet 00 Medicin e bumetanide 2021-0 Yes 1mg Take 1 mg [facility] (BUMEX) 1 9-10 by mouth. Colle ge MG tablet 00:00: of 00 Medicin e bumetanide 2021-0 2- No 1mg Take 1 mg [facility] (BUMEX) 1 9-10 11-29 by mouth. [facility] MG tablet 00:00: 00:00 of 00 :00 Medicin e metoprolol 2021-0 2021- No 25mg Take 25 mg [facility] (LOPRESSOR) 9-10 10-11 by mouth. [facility] 25 MG 00:00: 00:00 of tablet 00 :00 Medicin e ondansetron 2021-0 Yes 1{tbl} Take 1 [facility] (ZOFRAN-ODT 9-08 Tablet by Col [facility]ge ) 8 mg 00:00: mouth of disintegrat 00 every 8 Medic in ing tablet hours as e needed. ondansetron 2021-0 Yes 1{tbl} Take 1 [facility] (ZOFRAN-ODT 9-08 Tablet by Col [facility]ge ) 8 mg 00:00: mouth of disintegrat 00 every 8 Medic in ing tablet hours as e needed. rosuvastati 2-0 Yes 5mg Take 5 mg [facility] (CRESTOR) 8-19 by mouth [facility] 5 MG tablet 00:00: daily. of 00 Medicin e rosuvastati 2021-0 Yes 5mg Take 5 mg [facility] (CRESTOR) 8-19 by mouth [facility] 5 MG tablet 00:00: daily. of 00 Medicin e rosuvastati 2-0 Yes 5mg Take 5 mg [facility] (CRESTOR) 8-19 by mouth [facility] 5 MG tablet 00:00: daily. of 00 Medicin e rosuvastati 2-0 Yes 5mg Take 5 mg [facility] (CRESTOR) 8-19 by mouth [facility] 5 MG tablet 00:00: daily. of 00 Medicin e rosuvastati 2022-0 Yes 5mg Take 5 mg [facility] (CRESTOR) 8-19 by mouth [facility] 5 MG tablet 00:00: daily. of Medicin e rosuvastati 2021-0 Yes 5mg Take 5 mg [facility] (CRESTOR) 8-19 by mouth [facility] 5 MG tablet 00:00: daily. of Medicin e anastrozole 2021-0 Yes 1mg Take 1 mg [facility] (ARIMIDEX) 8-16 by mouth Colle [facility] 1 MG tablet 00:00: daily. of Medicin e anastrozole 2021-0 Yes 1mg Take 1 mg [facility] (ARIMIDEX) 8-16 by mouth Colle ge 1 MG tablet 00:00: daily. of Medicin e anastrozole 2021-0 Yes 1mg Take 1 mg [facility] (ARIMIDEX) 8-16 by mouth Colle ge 1 MG tablet 00:00: daily. of Medicin e anastrozole 2021-0 Yes 1mg Take 1 mg [facility] (ARIMIDEX) 8-16 by mouth Colle ge 1 MG tablet 00:00: daily. of Medicin e anastrozole 2021-0 Yes 1mg Take 1 mg [facility] (ARIMIDEX) 8-16 by mouth Colle ge 1 MG tablet 00:00: daily. of Medicin e anastrozole 2021-0 Yes 1mg Take 1 mg [facility] [...] 7-29 (Same As: l 22:00: Bumex) [facility] Bumex 0 No Notes: Memoria 7-29 (Same As: l 22:00: Bumex) [facility] Bumex 0 No Notes: [facility]oria 7-29 (Same As: l 22:00: Bumex) Tomas Bumex 0 No Notes: Memoria 7-29 (Same As: l 22:00: Bumex) [place] Bumex 2021-0 No Notes: [facility]oria 7-29 (Same As: l 22:00: Bumex) Tomas Bumex 0 No Notes: Memoria 7-29 (Same As: l 22:00: Bumex) Tomas Bumex 0 No Notes: Memoria 7-29 (Same As: l 22:00: Bumex) Tomas 00 Bumex 0 No Notes: Memoria 7-29 (Same As: l 22:00: Bumex) [facility] Bumex 2021-0 No Notes: Memoria 7-29 (Same As: l 22:00: Bumex) [place] 00 Bumex 2021-0 No Notes: [facility]oria 7-29 (Same As: l 22:00: Bumex) Tomas Bumex 2021-0 No Notes: Memoria 7-29 (Same As: l 22:00: Bumex) [place] 00 Bumex 0 No Notes: Memoria 7-29 (Same As: l 22:00: Bumex) [place] Bumex 2021-0 No Notes: Memoria 7-29 (Same As: l 22:00: Bumex) Tomas Bumex 2021-0 No Notes: [facility]oria 7-29 (Same As: l 22:00: Bumex) [facility] Bumex 2021-0 No Notes: [facility]oria 7-29 (Same As: l 22:00: Bumex) [facility]omas Bumex 2021-0 No Notes: Memoria 7-29 (Same As: l 22:00: Bumex) [facility]omas Bumex 2021-0 No Notes: Memoria 7-29 (Same As: l 22:00: Bumex) Tomas Bumex No Notes: Memoria 7-29 (Same As: l 22:00: Bumex) Tomas Bumex 0 No Notes: Memoria 7-29 (Same As: l 22:00: Bumex) Tomas 00 Bumex 0 No Notes: Memoria 7-29 (Same As: l 22:00: Bumex) [facility] Bumex No Notes: Memoria 7-29 (Same As: l 22:00: Bumex) Tomas Bumex No Notes: Memoria 7-29 (Same As: l 22:00: Bumex) Tomas Bumex No Notes: Memoria 7-29 (Same As: l 22:00: Bumex) [place] 00 Bumex No Notes: Memoria 7-29 (Same As: l 22:00: Bumex) Tomas Bumex No Notes: Memoria 7-29 (Same As: l 22:00: Bumex) Tomas 00 Bumex No Notes: Memoria 7-29 (Same As: l 22:00: Bumex) [facility] Bumex No Notes: Memoria 7-29 (Same As: l 22:00: Bumex) [place] 00 Bumex No Notes: Memoria 7-29 (Same As: l 22:00: Bumex) Tomas Bumex 0 No Notes: Memoria 7-29 (Same As: l 22:00: Bumex) Tomas Bumex 0 No Notes: Memoria 7-29 (Same As: l 22:00: Bumex) Tomas Bumex 0 No Notes: Memoria 7-29 (Same As: l 22:00: Bumex) [place] Bumex 0 No Notes: Memoria 7-29 (Same As: l 22:00: Bumex) [facility] Bumex 0 No Notes: Memoria 7-29 (Same As: l 22:00: Bumex) [place] Bumex No Notes: Memoria 7-29 (Same As: [...] 10 mEq = 1 M emoria oral 7- cap, PO, l capsule, 16:31: BID, # 180 Her viera extended 00 cap, 0 release Refill(s), Pharmacy: [facility], 162.56, cm, 06/13/22 14:35:00 CDT, Height, 80.057, kg, 06/13/22 14:35:00 CDT, Weight Micro-K 10 2021-0 Yes 10 mEq = 1 M emoria oral 7-29 cap, PO, l capsule, 16:31: BID, # 180 Her viera extended 00 cap, 0 release Refill(s), Pharmacy: [facility], 162.56, cm, 06/13/22 14:35:00 CDT, Height, 80.057, kg, 06/13/22 14:35:00 CDT, Weight Micro-K 10 2021-0 Yes 10 mEq = 1 M emoria oral 7-29 cap, PO, l capsule, 16:31: BID, # 180 Her [facility] extended 00 cap, 0 release Refill(s), Pharmacy: [facility], 162.56, cm, 06/13/22 14:35:00 CDT, Height, 80.057, kg, 06/13/22 14:35:00 CDT, Weight Micro-K 10 2021-0 Yes 10 mEq = 1 M emoria oral 7-29 cap, PO, l capsule, 16:31: BID, # 180 Her viera extended 00 cap, 0 release Refill(s), Pharmacy: [facility], 162.56, cm, 06/13/22 14:35:00 CDT, Height, 80.057, kg, 06/13/22 14:35:00 CDT, Weight Micro-K 10 2021-0 Yes 10 mEq = 1 M emoria oral 7-29 cap, PO, l capsule, 16:31: BID, # 180 Her [facility]iera extended 00 cap, 0 release Refill(s), Pharmacy: [facility], 162.56, cm, 06/13/22 14:35:00 CDT, Height, 80.057, kg, 06/13/22 14:35:00 CDT, Weight Micro-K 10 2021-0 Yes 10 mEq = 1 M emoria oral 7-29 cap, PO, l capsule, 16:31: BID, # 180 [facility] extended 00 cap, 0 release Refill(s), Pharmacy: [facility], 162.56, cm, 06/13/22 14:35:00 CDT, Height, 80.057, kg, 06/13/22 14:35:00 CDT, Weight Micro-K 10 2021-0 Yes 10 mEq = 1 M emoria oral 7-29 cap, PO, l capsule, 16:31: BID, # 180 Her viera extended 00 cap, 0 release Refill(s), Pharmacy: [facility], 162.56, cm, 06/13/22 14:35:00 CDT, Height, 80.057, kg, 06/13/22 14:35:00 CDT, Weight Micro-K 10 2021-0 Yes 10 mEq = 1 M emoria oral 7-29 cap, PO, l capsule, 16:31: BID, # 180 Her [facility]iera extended 00 cap, 0 release Refill(s), Pharmacy: [facility], 162.56, cm, 06/13/22 14:35:00 CDT, Height, 80.057, kg, 06/13/22 14:35:00 CDT, Weight Micro-K 10 2021-0 Yes 10 mEq = 1 M emoria oral 7-29 cap, PO, l capsule, 16:31: BID, # 180 Her [facility]iera extended 00 cap, 0 release Refill(s), Pharmacy: [facility], 162.56, cm, 06/13/22 14:35:00 CDT, Height, 80.057, kg, 06/13/22 14:35:00 CDT, Weight Micro-K 10 2021-0 Yes 10 mEq = 1 M emoria oral 7-29 cap, PO, l capsule, 16:31: BID, # 180 [facility] extended 00 cap, 0 release Refill(s), Pharmacy: [facility], 162.56, cm, 06/13/22 14:35:00 CDT, Height, 80.057, kg, 06/13/22 14:35:00 CDT, Weight Micro-K 10 2021-0 Yes 10 mEq = 1 M [facility]oria oral 7-29 cap, PO, l capsule, 16:31: BID, # 180 [facility] extended 00 cap, 0 release Refill(s), Pharmacy: [facility], 162.56, cm, 06/13/22 14:35:00 CDT, Height, 80.057, kg, 06/13/22 14:35:00 CDT, Weight Micro-K 10 2021-0 Yes 10 mEq = 1 M [facility]oria oral 7-29 cap, PO, l capsule, 16:31: BID, # 180 [facility] extended 00 cap, 0 release Refill(s), Pharmacy: [facility], 162.56, cm, 06/13/22 14:35:00 CDT, Height, 80.057, kg, 06/13/22 14:35:00 CDT, Weight Micro-K 10 2021-0 Yes 10 mEq = 1 M [facility]oria oral 7-29 cap, PO, l capsule, 16:31: BID, # 180 [facility] extended 00 cap, 0 release Refill(s), Pharmacy: [facility], 162.56, cm, 06/13/22 14:35:00 CDT, Height, 80.057, kg, 06/13/22 14:35:00 CDT, Weight Micro-K 10 2021-0 Yes 10 mEq = 1 M emoria oral 7-29 cap, PO, l capsule, 16:31: BID, # 180 Her [facility]iera extended 00 cap, 0 release Refill(s), Pharmacy: [facility], 162.56, cm, 06/13/22 14:35:00 CDT, Height, 80.057, kg, 06/13/22 14:35:00 CDT, Weight Micro-K 10 2021-0 Yes 10 mEq = 1 M [facility]oria oral 7-29 cap, PO, l capsule, 16:31: BID, # 180 [facility] extended 00 cap, 0 release Refill(s), Pharmacy: [facility], 162.56, cm, 06/13/22 14:35:00 CDT, Height, 80.057, kg, 06/13/22 14:35:00 CDT, Weight Micro-K 10 2021-0 Yes 10 mEq = 1 M [facility] oral 7-29 cap, PO, l capsule, 16:31: BID, # 180 [facility] extended 00 cap, 0 release Refill(s), Pharmacy: [facility], 162.56, cm, 06/13/22 14:35:00 CDT, Height, 80.057, kg, 06/13/22 14:35:00 CDT, Weight Micro-K 10 2021-0 Yes 10 mEq = 1 M emoria oral 7-29 cap, PO, l capsule, 16:31: BID, # 180 Her viera extended 00 cap, 0 release Refill(s), Pharmacy: [facility], 162.56, cm, 06/13/22 14:35:00 CDT, Height, 80.057, kg, 06/13/22 14:35:00 CDT, Weight Micro-K 10 2021-0 Yes 10 mEq = 1 M emoria oral 7-29 cap, PO, l capsule, 16:31: BID, # 180 Her viera extended 00 cap, 0 release Refill(s), Pharmacy: [facility], 162.56, cm, 06/13/22 14:35:00 CDT, Height, 80.057, kg, 06/13/22 14:35:00 CDT, Weight Micro-K 10 2021-0 Yes 10 mEq = 1 M emoria oral 7-29 cap, PO, l capsule, 16:31: BID, # 180 Her viera extended 00 cap, 0 release Refill(s), Pharmacy: [facility], 162.56, cm, 06/13/22 14:35:00 CDT, Height, 80.057, kg, 06/13/22 14:35:00 CDT, Weight Micro-K 10 2021-0 Yes 10 mEq = 1 M emoria oral 7-29 cap, PO, l capsule, 16:31: BID, # 180 Her viera extended 00 cap, 0 release Refill(s), Pharmacy: [facility], 162.56, cm, 06/13/22 14:35:00 CDT, Height, 80.057, kg, 06/13/22 14:35:00 CDT, Weight Micro-K 10 2021-0 Yes 10 mEq = 1 M emoria oral 7-29 cap, PO, l capsule, 16:31: BID, # 180 Her viera extended 00 cap, 0 release Refill(s), Pharmacy: [facility], 162.56, cm, 06/13/22 14:35:00 CDT, Height, 80.057, kg, 06/13/22 14:35:00 CDT, Weight Micro-K 10 2021-0 Yes 10 mEq = 1 M emoria oral 7-29 cap, PO, l capsule, 16:31: BID, # 180 Her viera extended 00 cap, 0 release Refill(s), Pharmacy: [facility], 162.56, cm, 06/13/22 14:35:00 CDT, Height, 80.057, kg, 06/13/22 14:35:00 CDT, Weight Micro-K 10 2021-0 Yes 10 mEq = 1 M emoria oral 7-29 cap, PO, l capsule, 16:31: BID, # 180 Her viera extended 00 cap, 0 release Refill(s), Pharmacy: [facility], 162.56, cm, 06/13/22 14:35:00 CDT, Height, 80.057, kg, 06/13/22 14:35:00 CDT, Weight Micro-K 10 2021-0 Yes 10 mEq = 1 M emoria oral 7-29 cap, PO, l capsule, 16:31: BID, # 180 Her viera extended 00 cap, 0 release Refill(s), Pharmacy: [facility], 162.56, cm, 06/13/22 14:35:00 CDT, Height, 80.057, kg, 06/13/22 14:35:00 CDT, Weight Micro-K 10 2021-0 Yes 10 mEq = 1 M emoria oral 7-29 cap, PO, l capsule, 16:31: BID, # 180 Her viera extended 00 cap, 0 release Refill(s), Pharmacy: [facility], 162.56, cm, 06/13/22 14:35:00 CDT, Height, 80.057, kg, 06/13/22 14:35:00 CDT, Weight Micro-K 10 2021-0 Yes 10 mEq = 1 M emoria oral 7-29 cap, PO, l capsule, 16:31: BID, # 180 Her viera extended 00 cap, 0 release Refill(s), Pharmacy: [facility], 162.56, cm, 06/13/22 14:35:00 CDT, Height, 80.057, kg, 06/13/22 14:35:00 CDT, Weight Micro-K 10 2021-0 Yes 10 mEq = 1 M emoria oral 7-29 cap, PO, l capsule, 16:31: BID, # 180 Her viera extended 00 cap, 0 release Refill(s), Pharmacy: [facility], 162.56, cm, 06/13/22 14:35:00 CDT, Height, 80.057, kg, 06/13/22 14:35:00 CDT, Weight Micro-K 10 2021-0 Yes 10 mEq = 1 M emoria oral 7-29 cap, PO, l capsule, 16:31: BID, # 180 Her viera extended 00 cap, 0 release Refill(s), Pharmacy: [facility], 162.56, cm, 06/13/22 14:35:00 CDT, Height, 80.057, kg, 06/13/22 14:35:00 CDT, Weight Micro-K 10 2021-0 Yes 10 mEq = 1 M emoria oral 7-29 cap, PO, l capsule, 16:31: BID, # 180 Her viera extended 00 cap, 0 release Refill(s), Pharmacy: [facility], 162.56, cm, 06/13/22 14:35:00 CDT, Height, 80.057, kg, 06/13/22 14:35:00 CDT, Weight Micro-K 10 2021-0 Yes 10 mEq = 1 M emoria oral 7-29 cap, PO, l capsule, 16:31: BID, # 180 Her viera extended 00 cap, 0 release Refill(s), Pharmacy: [facility], 162.56, cm, 06/13/22 14:35:00 CDT, Height, 80.057, kg, 06/13/22 14:35:00 CDT, Weight Micro-K 10 2021-0 Yes 10 mEq = 1 M emoria oral 7-29 cap, PO, l capsule, 16:31: BID, # 180 Her viera extended 00 cap, 0 release Refill(s), Pharmacy: [facility], 162.56, cm, 06/13/22 14:35:00 CDT, Height, 80.057, kg, 06/13/22 14:35:00 CDT, Weight Micro-K 10 2021-0 Yes 10 mEq = 1 M emoria oral 7-29 cap, PO, l capsule, 16:31: BID, # 180 Her viera extended 00 cap, 0 release Refill(s), Pharmacy: [facility], 162.56, cm, 06/13/22 14:35:00 CDT, Height, 80.057, kg, 06/13/22 14:35:00 CDT, Weight Micro-K 10 2021-0 Yes 10 mEq = 1 M emoria oral 7-29 cap, PO, l capsule, 16:31: BID, # 180 Her viera extended 00 cap, 0 release Refill(s), Pharmacy: [facility], 162.56, cm, 06/13/22 14:35:00 CDT, Height, 80.057, kg, 06/13/22 14:35:00 CDT, Weight Micro-K 10 2021-0 Yes 10 mEq = 1 M emoria oral 7-29 cap, PO, l capsule, 16:31: BID, # 180 Her viera extended 00 cap, 0 release Refill(s), Pharmacy: [facility], 162.56, cm, 06/13/22 14:35:00 CDT, Height, 80.057, kg, 06/13/22 14:35:00 CDT, Weight Micro-K 10 2021-0 Yes 10 mEq = 1 M emoria oral 7-29 cap, PO, l capsule, 16:31: BID, # 180 Her viera extended 00 cap, 0 release Refill(s), Pharmacy: [facility], 162.56, cm, 06/13/22 14:35:00 CDT, Height, 80.057, kg, 06/13/22 14:35:00 CDT, Weight Micro-K 10 2021-0 Yes 10 mEq = 1 M emoria oral 7-29 cap, PO, l capsule, 16:31: BID, # 180 Her viera extended 00 cap, 0 release Refill(s), Pharmacy: [facility], 162.56, cm, 06/13/22 14:35:00 CDT, Height, 80.057, kg, 06/13/22 14:35:00 CDT, Weight Micro-K 10 2021-0 Yes 10 mEq = 1 M emoria oral 7-29 cap, PO, l capsule, 16:31: BID, # 180 Her viera extended 00 cap, 0 release Refill(s), Pharmacy: [facility], 162.56, cm, 06/13/22 14:35:00 CDT, Height, 80.057, kg, 06/13/22 14:35:00 CDT, Weight Micro-K 10 2021-0 Yes 10 mEq = 1 M emoria oral 7-29 cap, PO, l capsule, 16:31: BID, # 180 Her viera extended 00 cap, 0 release Refill(s), Pharmacy: [facility], 162.56, cm, 06/13/22 14:35:00 CDT, Height, 80.057, kg, 06/13/22 14:35:00 CDT, Weight Micro-K 10 2021-0 Yes 10 mEq = 1 M emoria oral 7-29 cap, PO, l capsule, 16:31: BID, # 180 Her viera extended 00 cap, 0 release Refill(s), Pharmacy: [facility], 162.56, cm, 06/13/22 14:35:00 CDT, Height, 80.057, kg, 06/13/22 14:35:00 CDT, Weight Micro-K 10 2021-0 Yes 10 mEq = 1 M emoria oral 7-29 cap, PO, l capsule, 16:31: BID, # 180 Her viera extended 00 cap, 0 release Refill(s), Pharmacy: [facility], 162.56, cm, 06/13/22 14:35:00 CDT, Height, 80.057, kg, 06/13/22 14:35:00 CDT, Weight Micro-K 10 2021-0 Yes 10 mEq = 1 M emoria oral 7-29 cap, PO, l capsule, 16:31: BID, # 180 Her viera extended 00 cap, 0 release Refill(s), Pharmacy: [facility], 162.56, cm, 06/13/22 14:35:00 CDT, Height, 80.057, kg, 06/13/22 14:35:00 CDT, Weight Micro-K 10 2021-0 Yes 10 mEq = 1 M emoria oral 7-29 cap, PO, l capsule, 16:31: BID, # 180 Her viera extended 00 cap, 0 release Refill(s), Pharmacy: [facility], 162.56, cm, 06/13/22 14:35:00 CDT, Height, 80.057, kg, 06/13/22 14:35:00 CDT, Weight Micro-K 10 2021-0 Yes 10 mEq = 1 M emoria oral 7-29 cap, PO, l capsule, 16:31: BID, # 180 Her viera extended 00 cap, 0 release Refill(s), Pharmacy: [facility], 162.56, cm, 06/13/22 14:35:00 CDT, Height, 80.057, kg, 06/13/22 14:35:00 CDT, Weight Micro-K 10 2021-0 Yes 10 mEq = 1 M emoria oral 7-29 cap, PO, l capsule, 16:31: BID, # 180 Her viera extended 00 cap, 0 release Refill(s), Pharmacy: [facility], 162.56, cm, 06/13/22 14:35:00 CDT, Height, 80.057, kg, 06/13/22 14:35:00 CDT, Weight Micro-K 10 2021-0 Yes 10 mEq = 1 M emoria oral 7-29 cap, PO, l capsule, 16:31: BID, # 180 Her viera extended 00 cap, 0 release Refill(s), Pharmacy: [facility], 162.56, cm, 06/13/22 14:35:00 CDT, Height, 80.057, kg, 06/13/22 14:35:00 CDT, Weight Micro-K 10 2021-0 Yes 10 mEq = 1 M emoria oral 7-29 cap, PO, l capsule, 16:31: BID, # 180 Her viera extended 00 cap, 0 release Refill(s), Pharmacy: [facility], 162.56, cm, 06/13/22 14:35:00 CDT, Height, 80.057, kg, 06/13/22 14:35:00 CDT, Weight Micro-K 10 2021-0 Yes 10 mEq = 1 M emoria oral 7-29 cap, PO, l capsule, 16:31: BID, # 180 Her viera extended 00 cap, 0 release Refill(s), Pharmacy: [facility], 162.56, cm, 06/13/22 14:35:00 CDT, Height, 80.057, kg, 06/13/22 14:35:00 CDT, Weight Micro-K 10 2021-0 Yes 10 mEq = 1 M emoria oral 7-29 cap, PO, l capsule, 16:31: BID, # 180 Her viera extended 00 cap, 0 release Refill(s), Pharmacy: [facility], 162.56, cm, 06/13/22 14:35:00 CDT, Height, 80.057, kg, 06/13/22 14:35:00 CDT, Weight Micro-K 10 2021-0 Yes 10 mEq = 1 M emoria oral 7-29 cap, PO, l capsule, 16:31: BID, # 180 Her viera extended 00 cap, 0 release Refill(s), Pharmacy: [facility], 162.56, cm, 06/13/22 14:35:00 CDT, Height, 80.057, kg, 06/13/22 14:35:00 CDT, Weight Micro-K 10 2021-0 Yes 10 mEq = 1 M emoria oral 7-29 cap, PO, l capsule, 16:31: BID, # 180 Her viera extended 00 cap, 0 release Refill(s), Pharmacy: [facility], 162.56, cm, 06/13/22 14:35:00 CDT, Height, 80.057, kg, 06/13/22 14:35:00 CDT, Weight Micro-K 10 2021-0 Yes 10 mEq = 1 M emoria oral 7-29 cap, PO, l capsule, 16:31: BID, # 180 Her viera extended 00 cap, 0 release Refill(s), Pharmacy: [facility], 162.56, cm, 06/13/22 14:35:00 CDT, Height, 80.057, kg, 06/13/22 14:35:00 CDT, Weight Micro-K 10 2021-0 Yes 10 mEq = 1 M emoria oral 7-29 cap, PO, l capsule, 16:31: BID, # 180 Her viera extended 00 cap, 0 release Refill(s), Pharmacy: [facility], 162.56, cm, 06/13/22 14:35:00 CDT, Height, 80.057, kg, 06/13/22 14:35:00 CDT, Weight Micro-K 10 2021-0 Yes 10 mEq = 1 M emoria oral 7-29 cap, PO, l capsule, 16:31: BID, # 180 Her viera extended 00 cap, 0 release Refill(s), Pharmacy: [facility], 162.56, cm, 06/13/22 14:35:00 CDT, Height, 80.057, kg, 06/13/22 14:35:00 CDT, Weight pantoprazol 2021-0 Yes 40 mg = 1 M emoria e 40 mg 7-29 tab, PO, l oral 16:30: Daily, # [facility]ic 00 90 tab, 0 coated Refill(s), tablet Pharmacy: [facility], 162.56, cm, 06/13/22 14:35:00 CDT, Height, 80.057, kg, 06/13/22 14:35:00 CDT, Weight magnesium 2-0 Yes 400 mg = 1 Me moria oxide 400 7-29 tab, PO, l mg oral 16:30: Daily, X Harish n tablet 00 30 day, # 30 tab, 0 Refill(s), Pharmacy: [facility], 162.56, cm, 06/13/22 14:35:00 CDT, Height, 80.057, kg, 06/13/22 14:35:00 CDT, Weight pantoprazol 2-0 Yes 40 mg = 1 M emoria e 40 mg 7-29 tab, PO, l oral 16:30: Daily, # [facility] 00 90 tab, 0 coated Refill(s), tablet Pharmacy: [facility], 162.56, cm, 06/13/22 14:35:00 CDT, Height, 80.057, kg, 06/13/22 14:35:00 CDT, Weight magnesium 2022-0 Yes 400 mg = 1 Me moria oxide 400 7-29 tab, PO, l mg oral 16:30: Daily, X Harish n tablet day, # 30 tab, 0 Refill(s), Pharmacy: [facility], 162.56, cm, 06/13/22 14:35:00 CDT, Height, 80.057, kg, 06/13/22 14:35:00 CDT, Weight pantoprazol 2022-0 Yes 40 mg = 1 M emoria e 40 mg 7-29 tab, PO, l oral 16:30: Daily, # [facility] 00 90 tab, 0 coated Refill(s), tablet Pharmacy: [facility], 162.56, cm, 06/13/22 14:35:00 CDT, Height, 80.057, kg, 06/13/22 14:35:00 CDT, Weight magnesium 2022-0 Yes 400 mg = 1 Me moria oxide 400 7-29 tab, PO, l mg oral 16:30: Daily, X Harish n tablet day, # 30 tab, 0 Refill(s), Pharmacy: [facility], 162.56, cm, 06/13/22 14:35:00 CDT, Height, 80.057, kg, 06/13/22 14:35:00 CDT, Weight pantoprazol 2022-0 Yes 40 mg = 1 M emoria e 40 mg 7-29 tab, PO, l oral 16:30: Daily, # [facility] 00 90 tab, 0 coated Refill(s), tablet Pharmacy: [facility], 162.56, cm, 06/13/22 14:35:00 CDT, Height, 80.057, kg, 06/13/22 14:35:00 CDT, Weight magnesium 2022-0 Yes 400 mg = 1 Me moria oxide 400 7-29 tab, PO, l mg oral 16:30: Daily, X Harish n tablet 00 30 day, # 30 tab, 0 Refill(s), Pharmacy: [facility], 162.56, cm, 06/13/22 14:35:00 CDT, Height, 80.057, kg, 06/13/22 14:35:00 CDT, Weight pantoprazol 2022-0 Yes 40 mg = 1 M emoria e 40 mg 7-29 tab, PO, l oral 16:30: Daily, # [facility] 00 90 tab, 0 coated Refill(s), tablet Pharmacy: [facility], 162.56, cm, 06/13/22 14:35:00 CDT, Height, 80.057, kg, 06/13/22 14:35:00 CDT, Weight magnesium 2022-0 Yes 400 mg = 1 Me moria oxide 400 7-29 tab, PO, l mg oral 16:30: Daily, X Harish n tablet 30 day, # 30 tab, 0 Refill(s), Pharmacy: [facility], 162.56, cm, 06/13/22 14:35:00 CDT, Height, 80.057, kg, 06/13/22 14:35:00 CDT, Weight pantoprazol 2022-0 Yes 40 mg = 1 M emoria e 40 mg 7-29 tab, PO, l oral 16:30: Daily, # [facility] 00 90 tab, 0 coated Refill(s), tablet Pharmacy: [facility], 162.56, cm, 06/13/22 14:35:00 CDT, Height, 80.057, kg, 06/13/22 14:35:00 CDT, Weight magnesium 2022-0 Yes 400 mg = 1 Me moria oxide 400 7-29 tab, PO, l mg oral 16:30: Daily, X Harish n tablet 30 day, # 30 tab, 0 Refill(s), Pharmacy: [facility], 162.56, cm, 06/13/22 14:35:00 CDT, Height, 80.057, kg, 06/13/22 14:35:00 CDT, Weight pantoprazol 2022-0 Yes 40 mg = 1 M emoria e 40 mg 7-29 tab, PO, l oral 16:30: Daily, # [facility] enteric 00 90 tab, 0 coated Refill(s), tablet Pharmacy: [facility], 162.56, cm, 06/13/22 14:35:00 CDT, Height, 80.057, kg, 06/13/22 14:35:00 CDT, Weight magnesium 2022-0 Yes 400 mg = 1 Me moria oxide 400 7-29 tab, PO, l mg oral 16:30: Daily, X Harish n tablet 30 day, # 30 tab, 0 Refill(s), Pharmacy: [facility], 162.56, cm, 06/13/22 14:35:00 CDT, Height, 80.057, kg, 06/13/22 14:35:00 CDT, Weight pantoprazol 2022-0 Yes 40 mg = 1 M emoria e 40 mg 7-29 tab, PO, l oral 16:30: Daily, # [facility] 00 90 tab, 0 coated Refill(s), tablet Pharmacy: [facility], 162.56, cm, 06/13/22 14:35:00 CDT, Height, 80.057, kg, 06/13/22 14:35:00 CDT, Weight magnesium 2022-0 Yes 400 mg = 1 Me moria oxide 400 7-29 tab, PO, l mg oral 16:30: Daily, X Harish n tablet 30 day, # 30 tab, 0 Refill(s), Pharmacy: [facility], 162.56, cm, 06/13/22 14:35:00 CDT, Height, 80.057, kg, 06/13/22 14:35:00 CDT, Weight pantoprazol 2022-0 Yes 40 mg = 1 M emoria e 40 mg 7-29 tab, PO, l oral 16:30: Daily, # [facility] 00 90 tab, 0 coated Refill(s), tablet Pharmacy: [facility], 162.56, cm, 06/13/22 14:35:00 CDT, Height, 80.057, kg, 06/13/22 14:35:00 CDT, Weight magnesium 2022-0 Yes 400 mg = 1 Me moria oxide 400 7-29 tab, PO, l mg oral 16:30: Daily, X Harish n tablet 30 day, # 30 tab, 0 Refill(s), Pharmacy: [facility], 162.56, cm, 06/13/22 14:35:00 CDT, Height, 80.057, kg, 06/13/22 14:35:00 CDT, Weight pantoprazol 2022-0 Yes 40 mg = 1 M emoria e 40 mg 7-29 tab, PO, l oral 16:30: Daily, # [facility] 00 90 tab, 0 coated Refill(s), tablet Pharmacy: [facility], 162.56, cm, 06/13/22 14:35:00 CDT, Height, 80.057, kg, 06/13/22 14:35:00 CDT, Weight magnesium 2022-0 Yes 400 mg = 1 Me moria oxide 400 7-29 tab, PO, l mg oral 16:30: Daily, X Harish n tablet day, # 30 tab, 0 Refill(s), Pharmacy: [facility], 162.56, cm, 06/13/22 14:35:00 CDT, Height, 80.057, kg, 06/13/22 14:35:00 CDT, Weight pantoprazol 2022-0 Yes 40 mg = 1 M emoria e 40 mg 7-29 tab, PO, l oral 16:30: Daily, # [facility] 00 90 tab, 0 coated Refill(s), tablet Pharmacy: [facility], 162.56, cm, 06/13/22 14:35:00 CDT, Height, 80.057, kg, 06/13/22 14:35:00 CDT, Weight magnesium 2022-0 Yes 400 mg = 1 Me moria oxide 400 7-29 tab, PO, l mg oral 16:30: Daily, X Harish n tablet 30 day, # 30 tab, 0 Refill(s), Pharmacy: [facility], 162.56, cm, 06/13/22 14:35:00 CDT, Height, 80.057, kg, 06/13/22 14:35:00 CDT, Weight pantoprazol 2022-0 Yes 40 mg = 1 M emoria e 40 mg 7-29 tab, PO, l oral 16:30: Daily, # [facility] 00 90 tab, 0 coated Refill(s), tablet Pharmacy: [facility], 162.56, cm, 06/13/22 14:35:00 CDT, Height, 80.057, kg, 06/13/22 14:35:00 CDT, Weight magnesium 2022-0 Yes 400 mg = 1 Me moria oxide 400 7-29 tab, PO, l mg oral 16:30: Daily, X Harish n tablet 30 day, # 30 tab, 0 Refill(s), Pharmacy: [facility], 162.56, cm, 06/13/22 14:35:00 CDT, Height, 80.057, kg, 06/13/22 14:35:00 CDT, Weight pantoprazol 2022-0 Yes 40 mg = 1 M emoria e 40 mg 7-29 tab, PO, l oral 16:30: Daily, # [facility] 00 90 tab, 0 coated Refill(s), tablet Pharmacy: [facility], 162.56, cm, 06/13/22 14:35:00 CDT, Height, 80.057, kg, 06/13/22 14:35:00 CDT, Weight magnesium 2022-0 Yes 400 mg = 1 Me moria oxide 400 7-29 tab, PO, l mg oral 16:30: Daily, X Harish n tablet day, # 30 tab, 0 Refill(s), Pharmacy: [facility], 162.56, cm, 06/13/22 14:35:00 CDT, Height, 80.057, kg, 06/13/22 14:35:00 CDT, Weight pantoprazol 2022-0 Yes 40 mg = 1 M emoria e 40 mg 7-29 tab, PO, l oral 16:30: Daily, # [facility] 00 90 tab, 0 coated Refill(s), tablet Pharmacy: [facility], 162.56, cm, 06/13/22 14:35:00 CDT, Height, 80.057, kg, 06/13/22 14:35:00 CDT, Weight magnesium 2022-0 Yes 400 mg = 1 Me moria oxide 400 7-29 tab, PO, l mg oral 16:30: Daily, X Harish n tablet 00 30 day, # 30 tab, 0 Refill(s), Pharmacy: [facility], 162.56, cm, 06/13/22 14:35:00 CDT, Height, 80.057, kg, 06/13/22 14:35:00 CDT, Weight pantoprazol 2021-0 Yes 40 mg = 1 M emoria e 40 mg 7-29 tab, PO, l oral 16:30: Daily, # [facility] 00 90 tab, 0 coated Refill(s), tablet Pharmacy: [facility], 162.56, cm, 06/13/22 14:35:00 CDT, Height, 80.057, kg, 06/13/22 14:35:00 CDT, Weight magnesium 2-0 Yes 400 mg = 1 Me moria oxide 400 7-29 tab, PO, l mg oral 16:30: Daily, X Harish n tablet 30 day, # 30 tab, 0 Refill(s), Pharmacy: [facility], 162.56, cm, 06/13/22 14:35:00 CDT, Height, 80.057, kg, 06/13/22 14:35:00 CDT, Weight pantoprazol 2021-0 Yes 40 mg = 1 M emoria e 40 mg 7-29 tab, PO, l oral 16:30: Daily, # [facility] 00 90 tab, 0 coated Refill(s), tablet Pharmacy: [facility], 162.56, cm, 06/13/22 14:35:00 CDT, Height, 80.057, kg, 06/13/22 14:35:00 CDT, Weight magnesium 2-0 Yes 400 mg = 1 Me moria oxide 400 7-29 tab, PO, l mg oral 16:30: Daily, X Harish n tablet 30 day, # 30 tab, 0 Refill(s), Pharmacy: [facility], 162.56, cm, 06/13/22 14:35:00 CDT, Height, 80.057, kg, 06/13/22 14:35:00 CDT, Weight pantoprazol 2022-0 Yes 40 mg = 1 M emoria e 40 mg 7-29 tab, PO, l oral 16:30: Daily, # [facility] 00 90 tab, 0 coated Refill(s), tablet Pharmacy: [facility], 162.56, cm, 06/13/22 14:35:00 CDT, Height, 80.057, kg, 06/13/22 14:35:00 CDT, Weight magnesium 2022-0 Yes 400 mg = 1 Me moria oxide 400 7-29 tab, PO, l mg oral 16:30: Daily, X Harish n tablet 30 day, # 30 tab, 0 Refill(s), Pharmacy: [facility], 162.56, cm, 06/13/22 14:35:00 CDT, Height, 80.057, kg, 06/13/22 14:35:00 CDT, Weight pantoprazol 2022-0 Yes 40 mg = 1 M emoria e 40 mg 7-29 tab, PO, l oral 16:30: Daily, # [facility] 00 90 tab, 0 coated Refill(s), tablet Pharmacy: [facility], 162.56, cm, 06/13/22 14:35:00 CDT, Height, 80.057, kg, 06/13/22 14:35:00 CDT, Weight magnesium 2022-0 Yes 400 mg = 1 Me moria oxide 400 7-29 tab, PO, l mg oral 16:30: Daily, X Harish n tablet day, # 30 tab, 0 Refill(s), Pharmacy: [facility], 162.56, cm, 06/13/22 14:35:00 CDT, Height, 80.057, kg, 06/13/22 14:35:00 CDT, Weight pantoprazol 2022-0 Yes 40 mg = 1 M emoria e 40 mg 7-29 tab, PO, l oral 16:30: Daily, # [facility] 00 90 tab, 0 coated Refill(s), tablet Pharmacy: [facility], 162.56, cm, 06/13/22 14:35:00 CDT, Height, 80.057, kg, 06/13/22 14:35:00 CDT, Weight magnesium 2022-0 Yes 400 mg = 1 Me moria oxide 400 7-29 tab, PO, l mg oral 16:30: Daily, X Harish n tablet 00 30 day, # 30 tab, 0 Refill(s), Pharmacy: [facility], 162.56, cm, 06/13/22 14:35:00 CDT, Height, 80.057, kg, 06/13/22 14:35:00 CDT, Weight pantoprazol 2022-0 Yes 40 mg = 1 M emoria e 40 mg 7-29 tab, PO, l oral 16:30: Daily, # [facility] 00 90 tab, 0 coated Refill(s), tablet Pharmacy: [facility], 162.56, cm, 06/13/22 14:35:00 CDT, Height, 80.057, kg, 06/13/22 14:35:00 CDT, Weight magnesium 2022-0 Yes 400 mg = 1 Me moria oxide 400 7-29 tab, PO, l mg oral 16:30: Daily, X Harish n tablet day, # 30 tab, 0 Refill(s), Pharmacy: [facility], 162.56, cm, 06/13/22 14:35:00 CDT, Height, 80.057, kg, 06/13/22 14:35:00 CDT, Weight pantoprazol 2022-0 Yes 40 mg = 1 M emoria e 40 mg 7-29 tab, PO, l oral 16:30: Daily, # [facility] 00 90 tab, 0 coated Refill(s), tablet Pharmacy: [facility], 162.56, cm, 06/13/22 14:35:00 CDT, Height, 80.057, kg, 06/13/22 14:35:00 CDT, Weight magnesium 2022-0 Yes 400 mg = 1 Me moria oxide 400 7-29 tab, PO, l mg oral 16:30: Daily, X Harish n tablet 30 day, # 30 tab, 0 Refill(s), Pharmacy: [facility], 162.56, cm, 06/13/22 14:35:00 CDT, Height, 80.057, kg, 06/13/22 14:35:00 CDT, Weight pantoprazol 2022-0 Yes 40 mg = 1 M emoria e 40 mg 7-29 tab, PO, l oral 16:30: Daily, # [facility] 00 90 tab, 0 coated Refill(s), tablet Pharmacy: [facility], 162.56, cm, 06/13/22 14:35:00 CDT, Height, 80.057, kg, 06/13/22 14:35:00 CDT, Weight magnesium 2022-0 Yes 400 mg = 1 Me moria oxide 400 7-29 tab, PO, l mg oral 16:30: Daily, X Harish n tablet 30 day, # 30 tab, 0 Refill(s), Pharmacy: [facility], 162.56, cm, 06/13/22 14:35:00 CDT, Height, 80.057, kg, 06/13/22 14:35:00 CDT, Weight pantoprazol 2022-0 Yes 40 mg = 1 M emoria e 40 mg 7-29 tab, PO, l oral 16:30: Daily, # [facility] 00 90 tab, 0 coated Refill(s), tablet Pharmacy: [facility], 162.56, cm, 06/13/22 14:35:00 CDT, Height, 80.057, kg, 06/13/22 14:35:00 CDT, Weight magnesium 2-0 Yes 400 mg = 1 Me moria oxide 400 7-29 tab, PO, l mg oral 16:30: Daily, X Harish n tablet day, # 30 tab, 0 Refill(s), Pharmacy: [facility], 162.56, cm, 06/13/22 14:35:00 CDT, Height, 80.057, kg, 06/13/22 14:35:00 CDT, Weight pantoprazol 2022-0 Yes 40 mg = 1 M emoria e 40 mg 7-29 tab, PO, l oral 16:30: Daily, # [facility] 00 90 tab, 0 coated Refill(s), tablet Pharmacy: [facility], 162.56, cm, 06/13/22 14:35:00 CDT, Height, 80.057, kg, 06/13/22 14:35:00 CDT, Weight magnesium 2022-0 Yes 400 mg = 1 Me moria oxide 400 7-29 tab, PO, l mg oral 16:30: Daily, X Harish n tablet 00 30 day, # 30 tab, 0 Refill(s), Pharmacy: [facility], 162.56, cm, 06/13/22 14:35:00 CDT, Height, 80.057, kg, 06/13/22 14:35:00 CDT, Weight pantoprazol 2022-0 Yes 40 mg = 1 M emoria e 40 mg 7-29 tab, PO, l oral 16:30: Daily, # [facility] 00 90 tab, 0 coated Refill(s), tablet Pharmacy: [facility], 162.56, cm, 06/13/22 14:35:00 CDT, Height, 80.057, kg, 06/13/22 14:35:00 CDT, Weight magnesium 2022-0 Yes 400 mg = 1 Me moria oxide 400 7-29 tab, PO, l mg oral 16:30: Daily, X Harish n tablet 30 day, # 30 tab, 0 Refill(s), Pharmacy: [facility], 162.56, cm, 06/13/22 14:35:00 CDT, Height, 80.057, kg, 06/13/22 14:35:00 CDT, Weight pantoprazol 2022-0 Yes 40 mg = 1 M emoria e 40 mg 7-29 tab, PO, l oral 16:30: Daily, # Blythe enteric 00 90 tab, 0 coated Refill(s), tablet Pharmacy: [facility], 162.56, cm, 06/13/22 14:35:00 CDT, Height, 80.057, kg, 06/13/22 14:35:00 CDT, Weight magnesium 2022-0 Yes 400 mg = 1 Me moria oxide 400 7-29 tab, PO, l mg oral 16:30: Daily, X Harish n tablet 00 30 day, # 30 tab, 0 Refill(s), Pharmacy: [facility], 162.56, cm, 06/13/22 14:35:00 CDT, Height, 80.057, kg, 06/13/22 14:35:00 CDT, Weight pantoprazol 2022-0 Yes 40 mg = 1 M emoria e 40 mg 7-29 tab, PO, l oral 16:30: Daily, # Tomas enteric 00 90 tab, 0 coated Refill(s), tablet Pharmacy: [facility], 162.56, cm, 06/13/22 14:35:00 CDT, Height, 80.057, kg, 06/13/22 14:35:00 CDT, Weight magnesium 2022-0 Yes 400 mg = 1 Me moria oxide 400 7-29 tab, PO, l mg oral 16:30: Daily, X Harish n tablet 30 day, # 30 tab, 0 Refill(s), Pharmacy: [facility], 162.56, cm, 06/13/22 14:35:00 CDT, Height, 80.057, kg, 06/13/22 14:35:00 CDT, Weight pantoprazol 2022-0 Yes 40 mg = 1 M emoria e 40 mg 7-29 tab, PO, l oral 16:30: Daily, # Tomas enteric 00 90 tab, 0 coated Refill(s), tablet Pharmacy: [facility], 162.56, cm, 06/13/22 14:35:00 CDT, Height, 80.057, kg, 06/13/22 14:35:00 CDT, Weight magnesium 2022-0 Yes 400 mg = 1 Me moria oxide 400 7-29 tab, PO, l mg oral 16:30: Daily, X Harish n tablet day, # 30 tab, 0 Refill(s), Pharmacy: [facility], 162.56, cm, 06/13/22 14:35:00 CDT, Height, 80.057, kg, 06/13/22 14:35:00 CDT, Weight pantoprazol 2022-0 Yes 40 mg = 1 M emoria e 40 mg 7-29 tab, PO, l oral 16:30: Daily, # B[facility]the enteric 00 90 tab, 0 coated Refill(s), tablet Pharmacy: [facility], 162.56, cm, 06/13/22 14:35:00 CDT, Height, 80.057, kg, 06/13/22 14:35:00 CDT, Weight magnesium 2022-0 Yes 400 mg = 1 Me moria oxide 400 7-29 tab, PO, l mg oral 16:30: Daily, X Harish n tablet 30 day, # 30 tab, 0 Refill(s), Pharmacy: [facility], 162.56, cm, 06/13/22 14:35:00 CDT, Height, 80.057, kg, 06/13/22 14:35:00 CDT, Weight pantoprazol 2022-0 Yes 40 mg = 1 M emoria e 40 mg 7-29 tab, PO, l oral 16:30: Daily, # Tomas enteric 00 90 tab, 0 coated Refill(s), tablet Pharmacy: [facility], 162.56, cm, 06/13/22 14:35:00 CDT, Height, 80.057, kg, 06/13/22 14:35:00 CDT, Weight magnesium 2022-0 Yes 400 mg = 1 Me moria oxide 400 7-29 tab, PO, l mg oral 16:30: Daily, X Harish n tablet day, # 30 tab, 0 Refill(s), Pharmacy: [facility], 162.56, cm, 06/13/22 14:35:00 CDT, Height, 80.057, kg, 06/13/22 14:35:00 CDT, Weight pantoprazol 2022-0 Yes 40 mg = 1 M emoria e 40 mg 7-29 tab, PO, l oral 16:30: Daily, # [facility] 00 90 tab, 0 coated Refill(s), tablet Pharmacy: [facility], 162.56, cm, 06/13/22 14:35:00 CDT, Height, 80.057, kg, 06/13/22 14:35:00 CDT, Weight magnesium 2022-0 Yes 400 mg = 1 Me moria oxide 400 7-29 tab, PO, l mg oral 16:30: Daily, X Harish n tablet 30 day, # 30 tab, 0 Refill(s), Pharmacy: [facility], 162.56, cm, 06/13/22 14:35:00 CDT, Height, 80.057, kg, 06/13/22 14:35:00 CDT, Weight pantoprazol 2022-0 Yes 40 mg = 1 M emoria e 40 mg 7-29 tab, PO, l oral 16:30: Daily, # [facility] enteric 00 90 tab, 0 coated Refill(s), tablet Pharmacy: [facility], 162.56, cm, 06/13/22 14:35:00 CDT, Height, 80.057, kg, 06/13/22 14:35:00 CDT, Weight magnesium 2022-0 Yes 400 mg = 1 Me moria oxide 400 7-29 tab, PO, l mg oral 16:30: Daily, X Harish n tablet 30 day, # 30 tab, 0 Refill(s), Pharmacy: [facility], 162.56, cm, 06/13/22 14:35:00 CDT, Height, 80.057, kg, 06/13/22 14:35:00 CDT, Weight pantoprazol 2022-0 Yes 40 mg = 1 M emoria e 40 mg 7-29 tab, PO, l oral 16:30: Daily, # [facility] 00 90 tab, 0 coated Refill(s), tablet Pharmacy: [facility], 162.56, cm, 06/13/22 14:35:00 CDT, Height, 80.057, kg, 06/13/22 14:35:00 CDT, Weight magnesium 2022-0 Yes 400 mg = 1 Me moria oxide 400 7-29 tab, PO, l mg oral 16:30: Daily, X Harish n tablet 30 day, # 30 tab, 0 Refill(s), Pharmacy: [facility], 162.56, cm, 06/13/22 14:35:00 CDT, Height, 80.057, kg, 06/13/22 14:35:00 CDT, Weight pantoprazol 2022-0 Yes 40 mg = 1 M emoria e 40 mg 7-29 tab, PO, l oral 16:30: Daily, # [facility] enteric 00 90 tab, 0 coated Refill(s), tablet Pharmacy: [facility], 162.56, cm, 06/13/22 14:35:00 CDT, Height, 80.057, kg, 06/13/22 14:35:00 CDT, Weight magnesium 2022-0 Yes 400 mg = 1 Me moria oxide 400 7-29 tab, PO, l mg oral 16:30: Daily, X Harish n tablet 00 30 day, # 30 tab, 0 Refill(s), Pharmacy: [facility], 162.56, cm, 06/13/22 14:35:00 CDT, Height, 80.057, kg, 06/13/22 14:35:00 CDT, Weight pantoprazol 2022-0 Yes 40 mg = 1 M emoria e 40 mg 7-29 tab, PO, l oral 16:30: Daily, # [facility] enter[facility] 00 90 tab, 0 coated Refill(s), tablet Pharmacy: [facility], 162.56, cm, 06/13/22 14:35:00 CDT, Height, 80.057, kg, 06/13/22 14:35:00 CDT, Weight magnesium 2022-0 Yes 400 mg = 1 Me moria oxide 400 7-29 tab, PO, l mg oral 16:30: Daily, X Harish n tablet 30 day, # 30 tab, 0 Refill(s), Pharmacy: [facility], 162.56, cm, 06/13/22 14:35:00 CDT, Height, 80.057, kg, 06/13/22 14:35:00 CDT, Weight pantoprazol 2022-0 Yes 40 mg = 1 M emoria e 40 mg 7-29 tab, PO, l oral 16:30: Daily, # [facility] 00 90 tab, 0 coated Refill(s), tablet Pharmacy: [facility], 162.56, cm, 06/13/22 14:35:00 CDT, Height, 80.057, kg, 06/13/22 14:35:00 CDT, Weight magnesium 2022-0 Yes 400 mg = 1 Me moria oxide 400 7-29 tab, PO, l mg oral 16:30: Daily, X Harish n tablet 30 day, # 30 tab, 0 Refill(s), Pharmacy: [facility], 162.56, cm, 06/13/22 14:35:00 CDT, Height, 80.057, kg, 06/13/22 14:35:00 CDT, Weight pantoprazol 2022-0 Yes 40 mg = 1 M emoria e 40 mg 7-29 tab, PO, l oral 16:30: Daily, # [facility] 00 90 tab, 0 coated Refill(s), tablet Pharmacy: [facility], 162.56, cm, 06/13/22 14:35:00 CDT, Height, 80.057, kg, 06/13/22 14:35:00 CDT, Weight magnesium 2022-0 Yes 400 mg = 1 Me moria oxide 400 7-29 tab, PO, l mg oral 16:30: Daily, X Harish n tablet 00 30 day, # 30 tab, 0 Refill(s), Pharmacy: [facility], 162.56, cm, 06/13/22 14:35:00 CDT, Height, 80.057, kg, 06/13/22 14:35:00 CDT, Weight pantoprazol 2022-0 Yes 40 mg = 1 M emoria e 40 mg 7-29 tab, PO, l oral 16:30: Daily, # [facility] 00 90 tab, 0 coated Refill(s), tablet Pharmacy: [facility], 162.56, cm, 06/13/22 14:35:00 CDT, Height, 80.057, kg, 06/13/22 14:35:00 CDT, Weight magnesium 2022-0 Yes 400 mg = 1 Me moria oxide 400 7-29 tab, PO, l mg oral 16:30: Daily, X Harish n tablet 30 day, # 30 tab, 0 Refill(s), Pharmacy: [facility], 162.56, cm, 06/13/22 14:35:00 CDT, Height, 80.057, kg, 06/13/22 14:35:00 CDT, Weight pantoprazol 2022-0 Yes 40 mg = 1 M emoria e 40 mg 7-29 tab, PO, l oral 16:30: Daily, # [facility] 00 90 tab, 0 coated Refill(s), tablet Pharmacy: [facility], 162.56, cm, 06/13/22 14:35:00 CDT, Height, 80.057, kg, 06/13/22 14:35:00 CDT, Weight magnesium 2022-0 Yes 400 mg = 1 Me moria oxide 400 7-29 tab, PO, l mg oral 16:30: Daily, X Harish n tablet 00 30 day, # 30 tab, 0 Refill(s), Pharmacy: [facility], 162.56, cm, 06/13/22 14:35:00 CDT, Height, 80.057, kg, 06/13/22 14:35:00 CDT, Weight pantoprazol 2-0 Yes 40 mg = 1 M emoria e 40 mg 7-29 tab, PO, l oral 16:30: Daily, # [facility] 00 90 tab, 0 coated Refill(s), tablet Pharmacy: [facility], 162.56, cm, 06/13/22 14:35:00 CDT, Height, 80.057, kg, 06/13/22 14:35:00 CDT, Weight magnesium 2-0 Yes 400 mg = 1 Me moria oxide 400 7-29 tab, PO, l mg oral 16:30: Daily, X Harish n tablet day, # 30 tab, 0 Refill(s), Pharmacy: [facility], 162.56, cm, 06/13/22 14:35:00 CDT, Height, 80.057, kg, 06/13/22 14:35:00 CDT, Weight pantoprazol 2-0 Yes 40 mg = 1 M emoria e 40 mg 7-29 tab, PO, l oral 16:30: Daily, # [facility] enter[facility] 00 90 tab, 0 coated Refill(s), tablet Pharmacy: [facility], 162.56, cm, 06/13/22 14:35:00 CDT, Height, 80.057, kg, 06/13/22 14:35:00 CDT, Weight magnesium 2022-0 Yes 400 mg = 1 Me moria oxide 400 7-29 tab, PO, l mg oral 16:30: Daily, X Harish n tablet 00 30 day, # 30 tab, 0 Refill(s), Pharmacy: [facility], 162.56, cm, 06/13/22 14:35:00 CDT, Height, 80.057, kg, 06/13/22 14:35:00 CDT, Weight pantoprazol 2022-0 Yes 40 mg = 1 M emoria e 40 mg 7-29 tab, PO, l oral 16:30: Daily, # [facility] enteric 00 90 tab, 0 coated Refill(s), tablet Pharmacy: [facility], 162.56, cm, 06/13/22 14:35:00 CDT, Height, 80.057, kg, 06/13/22 14:35:00 CDT, Weight magnesium 2022-0 Yes 400 mg = 1 Me moria oxide 400 7-29 tab, PO, l mg oral 16:30: Daily, X Harish n tablet 00 30 day, # 30 tab, 0 Refill(s), Pharmacy: [facility], 162.56, cm, 06/13/22 14:35:00 CDT, Height, 80.057, kg, 06/13/22 14:35:00 CDT, Weight pantoprazol 2022-0 Yes 40 mg = 1 M emoria e 40 mg 7-29 tab, PO, l oral 16:30: Daily, # [facility] 00 90 tab, 0 coated Refill(s), tablet Pharmacy: [facility], 162.56, cm, 06/13/22 14:35:00 CDT, Height, 80.057, kg, 06/13/22 14:35:00 CDT, Weight magnesium 2022-0 Yes 400 mg = 1 Me moria oxide 400 7-29 tab, PO, l mg oral 16:30: Daily, X Harish n tablet 30 day, # 30 tab, 0 Refill(s), Pharmacy: [facility], 162.56, cm, 06/13/22 14:35:00 CDT, Height, 80.057, kg, 06/13/22 14:35:00 CDT, Weight pantoprazol 2022-0 Yes 40 mg = 1 M emoria e 40 mg 7-29 tab, PO, l oral 16:30: Daily, # [facility] 00 90 tab, 0 coated Refill(s), tablet Pharmacy: [facility], 162.56, cm, 06/13/22 14:35:00 CDT, Height, 80.057, kg, 06/13/22 14:35:00 CDT, Weight magnesium 2022-0 Yes 400 mg = 1 Me moria oxide 400 7-29 tab, PO, l mg oral 16:30: Daily, X Harish n tablet 30 day, # 30 tab, 0 Refill(s), Pharmacy: [facility], 162.56, cm, 06/13/22 14:35:00 CDT, Height, 80.057, kg, 06/13/22 14:35:00 CDT, Weight pantoprazol 2022-0 Yes 40 mg = 1 M emoria e 40 mg 7-29 tab, PO, l oral 16:30: Daily, # [facility] 00 90 tab, 0 coated Refill(s), tablet Pharmacy: [facility], 162.56, cm, 06/13/22 14:35:00 CDT, Height, 80.057, kg, 06/13/22 14:35:00 CDT, Weight magnesium 2022-0 Yes 400 mg = 1 Me moria oxide 400 7-29 tab, PO, l mg oral 16:30: Daily, X Harish n tablet day, # 30 tab, 0 Refill(s), Pharmacy: [facility], 162.56, cm, 06/13/22 14:35:00 CDT, Height, 80.057, kg, 06/13/22 14:35:00 CDT, Weight pantoprazol 2022-0 Yes 40 mg = 1 M emoria e 40 mg 7-29 tab, PO, l oral 16:30: Daily, # [facility] 00 90 tab, 0 coated Refill(s), tablet Pharmacy: [facility], 162.56, cm, 06/13/22 14:35:00 CDT, Height, 80.057, kg, 06/13/22 14:35:00 CDT, Weight magnesium 2022-0 Yes 400 mg = 1 Me moria oxide 400 7-29 tab, PO, l mg oral 16:30: Daily, X Harish n tablet 30 day, # 30 tab, 0 Refill(s), Pharmacy: [facility], 162.56, cm, 06/13/22 14:35:00 CDT, Height, 80.057, kg, 06/13/22 14:35:00 CDT, Weight pantoprazol 2022-0 Yes 40 mg = 1 M emoria e 40 mg 7-29 tab, PO, l oral 16:30: Daily, # [facility] 00 90 tab, 0 coated Refill(s), tablet Pharmacy: [facility], 162.56, cm, 06/13/22 14:35:00 CDT, Height, 80.057, kg, 06/13/22 14:35:00 CDT, Weight magnesium 2022-0 Yes 400 mg = 1 Me moria oxide 400 7-29 tab, PO, l mg oral 16:30: Daily, X Harish n tablet 30 day, # 30 tab, 0 Refill(s), Pharmacy: [facility], 162.56, cm, 06/13/22 14:35:00 CDT, Height, 80.057, kg, 06/13/22 14:35:00 CDT, Weight pantoprazol 2-0 Yes 40 mg = 1 M emoria e 40 mg 7-29 tab, PO, l oral 16:30: Daily, # [facility] 00 90 tab, 0 coated Refill(s), tablet Pharmacy: [facility], 162.56, cm, 06/13/22 14:35:00 CDT, Height, 80.057, kg, 06/13/22 14:35:00 CDT, Weight magnesium 2022-0 Yes 400 mg = 1 Me moria oxide 400 7-29 tab, PO, l mg oral 16:30: Daily, X Harish n tablet 30 day, # 30 tab, 0 Refill(s), Pharmacy: [facility], 162.56, cm, 06/13/22 14:35:00 CDT, Height, 80.057, kg, 06/13/22 14:35:00 CDT, Weight pantoprazol 2022-0 Yes 40 mg = 1 M emoria e 40 mg 7-29 tab, PO, l oral 16:30: Daily, # [facility] 00 90 tab, 0 coated Refill(s), tablet Pharmacy: [facility], 162.56, cm, 06/13/22 14:35:00 CDT, Height, 80.057, kg, 06/13/22 14:35:00 CDT, Weight magnesium 2022-0 Yes 400 mg = 1 Me moria oxide 400 7-29 tab, PO, l mg oral 16:30: Daily, X Harish n tablet day, # 30 tab, 0 Refill(s), Pharmacy: [facility], 162.56, cm, 06/13/22 14:35:00 CDT, Height, 80.057, kg, 06/13/22 14:35:00 CDT, Weight pantoprazol 2022-0 Yes 40 mg = 1 M emoria e 40 mg 7-29 tab, PO, l oral 16:30: Daily, # [facility] enteric 00 90 tab, 0 coated Refill(s), tablet Pharmacy: [facility], 162.56, cm, 06/13/22 14:35:00 CDT, Height, 80.057, kg, 06/13/22 14:35:00 CDT, Weight magnesium 2022-0 Yes 400 mg = 1 Me moria oxide 400 7-29 tab, PO, l mg oral 16:30: Daily, X Harish n tablet day, # 30 tab, 0 Refill(s), Pharmacy: [facility], 162.56, cm, 06/13/22 14:35:00 CDT, Height, 80.057, kg, 06/13/22 14:35:00 CDT, Weight pantoprazol 2022-0 Yes 40 mg = 1 M emoria e 40 mg 7-29 tab, PO, l oral 16:30: Daily, # [facility] enteric 00 90 tab, 0 coated Refill(s), tablet Pharmacy: [facility], 162.56, cm, 06/13/22 14:35:00 CDT, Height, 80.057, kg, 06/13/22 14:35:00 CDT, Weight magnesium 2022-0 Yes 400 mg = 1 Me moria oxide 400 7-29 tab, PO, l mg oral 16:30: Daily, X Harish n tablet 00 30 day, # 30 tab, 0 Refill(s), Pharmacy: [facility], 162.56, cm, 06/13/22 14:35:00 CDT, Height, 80.057, kg, 06/13/22 14:35:00 CDT, Weight pantoprazol 2022-0 Yes 40 mg = 1 M emoria e 40 mg 7-29 tab, PO, l oral 16:30: Daily, # [facility] 00 90 tab, 0 coated Refill(s), tablet Pharmacy: [facility], 162.56, cm, 06/13/22 14:35:00 CDT, Height, 80.057, kg, 06/13/22 14:35:00 CDT, Weight magnesium 2-0 Yes 400 mg = 1 Me moria oxide 400 7-29 tab, PO, l mg oral 16:30: Daily, X Harish n tablet day, # 30 tab, 0 Refill(s), Pharmacy: [facility], 162.56, cm, 06/13/22 14:35:00 CDT, Height, 80.057, kg, 06/13/22 14:35:00 CDT, Weight pantoprazol 2-0 Yes 40 mg = 1 M emoria e 40 mg 7-29 tab, PO, l oral 16:30: Daily, # [facility] enteric 00 90 tab, 0 coated Refill(s), tablet Pharmacy: [facility], 162.56, cm, 06/13/22 14:35:00 CDT, Height, 80.057, kg, 06/13/22 14:35:00 CDT, Weight magnesium 2-0 Yes 400 mg = 1 Me moria oxide 400 7-29 tab, PO, l mg oral 16:30: Daily, X Harish n tablet day, # 30 tab, 0 Refill(s), Pharmacy: [facility], 162.56, cm, 06/13/22 14:35:00 CDT, Height, 80.057, kg, 06/13/22 14:35:00 CDT, Weight losartan 25 2-0 Yes 25 mg = 1 M emoria mg oral 7-29 tab, PO, l tablet 16:29: Daily, # Tomas 00 90 tab, 1 Refill(s), Pharmacy: [facility], 162.56, cm, 06/13/22 14:35:00 CDT, Height, 80.057, kg, 06/13/22 14:35:00 CDT, Weight losartan 25 2-0 Yes 25 mg = 1 M emoria mg oral 7-29 tab, PO, l tablet 16:29: Daily, # Tomas 00 90 tab, 1 Refill(s), Pharmacy: [facility], 162.56, cm, 06/13/22 14:35:00 CDT, Height, 80.057, kg, 06/13/22 14:35:00 CDT, Weight losartan 25 2-0 Yes 25 mg = 1 M emoria mg oral 7-29 tab, PO, l tablet 16:29: Daily, # [facility] 00 90 tab, 1 Refill(s), Pharmacy: [facility], 162.56, cm, 06/13/22 14:35:00 CDT, Height, 80.057, kg, 06/13/22 14:35:00 CDT, Weight losartan 25 2-0 Yes 25 mg = 1 M emoria mg oral 7-29 tab, PO, l tablet 16:29: Daily, # Tomas 00 90 tab, 1 Refill(s), Pharmacy: [facility], 162.56, cm, 06/13/22 14:35:00 CDT, Height, 80.057, kg, 06/13/22 14:35:00 CDT, Weight losartan 25 2-0 Yes 25 mg = 1 M emoria mg oral 7-29 tab, PO, l tablet 16:29: Daily, # Tomas 00 90 tab, 1 Refill(s), Pharmacy: [facility], 162.56, cm, 06/13/22 14:35:00 CDT, Height, 80.057, kg, 06/13/22 14:35:00 CDT, Weight losartan 25 2-0 Yes 25 mg = 1 M emoria mg oral 7-29 tab, PO, l tablet 16:29: Daily, # Tomas 00 90 tab, 1 Refill(s), Pharmacy: [facility], 162.56, cm, 06/13/22 14:35:00 CDT, Height, 80.057, kg, 06/13/22 14:35:00 CDT, Weight losartan 25 2021-0 Yes 25 mg = 1 M emoria mg oral 7-29 tab, PO, l tablet 16:29: Daily, # Tomas 00 90 tab, 1 Refill(s), Pharmacy: [facility], 162.56, cm, 06/13/22 14:35:00 CDT, Height, 80.057, kg, 06/13/22 14:35:00 CDT, Weight losartan 25 2021-0 Yes 25 mg = 1 M emoria mg oral 7-29 tab, PO, l tablet 16:29: Daily, # Tomas 00 90 tab, 1 Refill(s), Pharmacy: [facility], 162.56, cm, 06/13/22 14:35:00 CDT, Height, 80.057, kg, 06/13/22 14:35:00 CDT, Weight losartan 25 2021-0 Yes 25 mg = 1 M emoria mg oral 7-29 tab, PO, l tablet 16:29: Daily, # [facility] 00 90 tab, 1 Refill(s), Pharmacy: [facility], 162.56, cm, 06/13/22 14:35:00 CDT, Height, 80.057, kg, 06/13/22 14:35:00 CDT, Weight losartan 25 2021-0 Yes 25 mg = 1 M emoria mg oral 7-29 tab, PO, l tablet 16:29: Daily, # [facility] 00 90 tab, 1 Refill(s), Pharmacy: [facility], 162.56, cm, 06/13/22 14:35:00 CDT, Height, 80.057, kg, 06/13/22 14:35:00 CDT, Weight losartan 25 2021-0 Yes 25 mg = 1 M emoria mg oral 7-29 tab, PO, l tablet 16:29: Daily, # Tomas 00 90 tab, 1 Refill(s), Pharmacy: [facility], 162.56, cm, 06/13/22 14:35:00 CDT, Height, 80.057, kg, 06/13/22 14:35:00 CDT, Weight losartan 25 2-0 Yes 25 mg = 1 M emoria mg oral 7-29 tab, PO, l tablet 16:29: Daily, # [facility] 00 90 tab, 1 Refill(s), Pharmacy: [facility], 162.56, cm, 06/13/22 14:35:00 CDT, Height, 80.057, kg, 06/13/22 14:35:00 CDT, Weight losartan 25 2021-0 Yes 25 mg = 1 M emoria mg oral 7-29 tab, PO, l tablet 16:29: Daily, # Tomas 00 90 tab, 1 Refill(s), Pharmacy: [facility], 162.56, cm, 06/13/22 14:35:00 CDT, Height, 80.057, kg, 06/13/22 14:35:00 CDT, Weight losartan 25 2021-0 Yes 25 mg = 1 M emoria mg oral 7-29 tab, PO, l tablet 16:29: Daily, # [facility] 00 90 tab, 1 Refill(s), Pharmacy: [facility], 162.56, cm, 06/13/22 14:35:00 CDT, Height, 80.057, kg, 06/13/22 14:35:00 CDT, Weight losartan 25 2021-0 Yes 25 mg = 1 M emoria mg oral 7-29 tab, PO, l tablet 16:29: Daily, # Tomas 00 90 tab, 1 Refill(s), Pharmacy: [facility], 162.56, cm, 06/13/22 14:35:00 CDT, Height, 80.057, kg, 06/13/22 14:35:00 CDT, Weight losartan 25 2-0 Yes 25 mg = 1 M emoria mg oral 7-29 tab, PO, l tablet 16:29: Daily, # [facility] 00 90 tab, 1 Refill(s), Pharmacy: [facility], 162.56, cm, 06/13/22 14:35:00 CDT, Height, 80.057, kg, 06/13/22 14:35:00 CDT, Weight losartan 25 2021-0 Yes 25 mg = 1 M emoria mg oral 7-29 tab, PO, l tablet 16:29: Daily, # [facility] 00 90 tab, 1 Refill(s), Pharmacy: [facility], 162.56, cm, 06/13/22 14:35:00 CDT, Height, 80.057, kg, 06/13/22 14:35:00 CDT, Weight losartan 25 2021-0 Yes 25 mg = 1 M emoria mg oral 7-29 tab, PO, l tablet 16:29: Daily, # Tomas 00 90 tab, 1 Refill(s), Pharmacy: [facility], 162.56, cm, 06/13/22 14:35:00 CDT, Height, 80.057, kg, 06/13/22 14:35:00 CDT, Weight losartan 25 2021-0 Yes 25 mg = 1 M emoria mg oral 7-29 tab, PO, l tablet 16:29: Daily, # Tomas 00 90 tab, 1 Refill(s), Pharmacy: [facility], 162.56, cm, 06/13/22 14:35:00 CDT, Height, 80.057, kg, 06/13/22 14:35:00 CDT, Weight losartan 25 2021-0 Yes 25 mg = 1 M emoria mg oral 7-29 tab, PO, l tablet 16:29: Daily, # Tomas 00 90 tab, 1 Refill(s), Pharmacy: [facility], 162.56, cm, 06/13/22 14:35:00 CDT, Height, 80.057, kg, 06/13/22 14:35:00 CDT, Weight losartan 25 2021-0 Yes 25 mg = 1 M emoria mg oral 7-29 tab, PO, l tablet 16:29: Daily, # Tomas 00 90 tab, 1 Refill(s), Pharmacy: [facility], 162.56, cm, 06/13/22 14:35:00 CDT, Height, 80.057, kg, 06/13/22 14:35:00 CDT, Weight losartan 25 2021-0 Yes 25 mg = 1 M emoria mg oral 7-29 tab, PO, l tablet 16:29: Daily, # [facility] 00 90 tab, 1 Refill(s), Pharmacy: [facility], 162.56, cm, 06/13/22 14:35:00 CDT, Height, 80.057, kg, 06/13/22 14:35:00 CDT, Weight losartan 25 2-0 Yes 25 mg = 1 M emoria mg oral 7-29 tab, PO, l tablet 16:29: Daily, # [facility] 00 90 tab, 1 Refill(s), Pharmacy: [facility], 162.56, cm, 06/13/22 14:35:00 CDT, Height, 80.057, kg, 06/13/22 14:35:00 CDT, Weight losartan 25 2021-0 Yes 25 mg = 1 M emoria mg oral 7-29 tab, PO, l tablet 16:29: Daily, # Tomas 00 90 tab, 1 Refill(s), Pharmacy: [facility], 162.56, cm, 06/13/22 14:35:00 CDT, Height, 80.057, kg, 06/13/22 14:35:00 CDT, Weight losartan 25 2021-0 Yes 25 mg = 1 M emoria mg oral 7-29 tab, PO, l tablet 16:29: Daily, # [facility] 00 90 tab, 1 Refill(s), Pharmacy: [facility], 162.56, cm, 06/13/22 14:35:00 CDT, Height, 80.057, kg, 06/13/22 14:35:00 CDT, Weight losartan 25 2021-0 Yes 25 mg = 1 M emoria mg oral 7-29 tab, PO, l tablet 16:29: Daily, # [facility] 00 90 tab, 1 Refill(s), Pharmacy: [facility], 162.56, cm, 06/13/22 14:35:00 CDT, Height, 80.057, kg, 06/13/22 14:35:00 CDT, Weight losartan 25 2-0 Yes 25 mg = 1 M emoria mg oral 7-29 tab, PO, l tablet 16:29: Daily, # [facility] 00 90 tab, 1 Refill(s), Pharmacy: [facility], 162.56, cm, 06/13/22 14:35:00 CDT, Height, 80.057, kg, 06/13/22 14:35:00 CDT, Weight losartan 25 2022-0 Yes 25 mg = 1 M emoria mg oral 7-29 tab, PO, l tablet 16:29: Daily, # [facility] 00 90 tab, 1 Refill(s), Pharmacy: [facility], 162.56, cm, 06/13/22 14:35:00 CDT, Height, 80.057, kg, 06/13/22 14:35:00 CDT, Weight losartan 25 2-0 Yes 25 mg = 1 M emoria mg oral 7-29 tab, PO, l tablet 16:29: Daily, # [facility] 00 90 tab, 1 Refill(s), Pharmacy: [facility], 162.56, cm, 06/13/22 14:35:00 CDT, Height, 80.057, kg, 06/13/22 14:35:00 CDT, Weight losartan 25 2-0 Yes 25 mg = 1 M emoria mg oral 7-29 tab, PO, l tablet 16:29: Daily, # Tomas 00 90 tab, 1 Refill(s), Pharmacy: [facility], 162.56, cm, 06/13/22 14:35:00 CDT, Height, 80.057, kg, 06/13/22 14:35:00 CDT, Weight losartan 25 2-0 Yes 25 mg = 1 M emoria mg oral 7-29 tab, PO, l tablet 16:29: Daily, # [facility] 00 90 tab, 1 Refill(s), Pharmacy: [facility], 162.56, cm, 06/13/22 14:35:00 CDT, Height, 80.057, kg, 06/13/22 14:35:00 CDT, Weight losartan 25 2-0 Yes 25 mg = 1 M emoria mg oral 7-29 tab, PO, l tablet 16:29: Daily, # Tomas 00 90 tab, 1 Refill(s), Pharmacy: [facility], 162.56, cm, 06/13/22 14:35:00 CDT, Height, 80.057, kg, 06/13/22 14:35:00 CDT, Weight losartan 25 2021-0 Yes 25 mg = 1 M emoria mg oral 7-29 tab, PO, l tablet 16:29: Daily, # Tomas 00 90 tab, 1 Refill(s), Pharmacy: [facility], 162.56, cm, 06/13/22 14:35:00 CDT, Height, 80.057, kg, 06/13/22 14:35:00 CDT, Weight losartan 25 2021-0 Yes 25 mg = 1 M emoria mg oral 7-29 tab, PO, l tablet 16:29: Daily, # Tomas 00 90 tab, 1 Refill(s), Pharmacy: [facility], 162.56, cm, 06/13/22 14:35:00 CDT, Height, 80.057, kg, 06/13/22 14:35:00 CDT, Weight losartan 25 2021-0 Yes 25 mg = 1 M emoria mg oral 7-29 tab, PO, l tablet 16:29: Daily, # [facility] 00 90 tab, 1 Refill(s), Pharmacy: [facility], 162.56, cm, 06/13/22 14:35:00 CDT, Height, 80.057, kg, 06/13/22 14:35:00 CDT, Weight losartan 25 2021-0 Yes 25 mg = 1 M emoria mg oral 7-29 tab, PO, l tablet 16:29: Daily, # [place] 00 90 tab, 1 Refill(s), Pharmacy: [facility], 162.56, cm, 06/13/22 14:35:00 CDT, Height, 80.057, kg, 06/13/22 14:35:00 CDT, Weight losartan 25 2021-0 Yes 25 mg = 1 M emoria mg oral 7-29 tab, PO, l tablet 16:29: Daily, # [place] 00 90 tab, 1 Refill(s), Pharmacy: [facility], 162.56, cm, 06/13/22 14:35:00 CDT, Height, 80.057, kg, 06/13/22 14:35:00 CDT, Weight losartan 25 2021-0 Yes 25 mg = 1 M emoria mg oral 7-29 tab, PO, l tablet 16:29: Daily, # [place] 00 90 tab, 1 Refill(s), Pharmacy: [facility], 162.56, cm, 06/13/22 14:35:00 CDT, Height, 80.057, kg, 06/13/22 14:35:00 CDT, Weight losartan 25 2021-0 Yes 25 mg = 1 M emoria mg oral 7-29 tab, PO, l tablet 16:29: Daily, # [place] 00 90 tab, 1 Refill(s), Pharmacy: [facility], 162.56, cm, 06/13/22 14:35:00 CDT, Height, 80.057, kg, 06/13/22 14:35:00 CDT, Weight losartan 25 2021-0 Yes 25 mg = 1 M emoria mg oral 7-29 tab, PO, l tablet 16:29: Daily, # [place] 00 90 tab, 1 Refill(s), Pharmacy: [facility], 162.56, cm, 06/13/22 14:35:00 CDT, Height, 80.057, kg, 06/13/22 14:35:00 CDT, Weight losartan 25 2021-0 Yes 25 mg = 1 M emoria mg oral 7-29 tab, PO, l tablet 16:29: Daily, # [place] 00 90 tab, 1 Refill(s), Pharmacy: [facility], 162.56, cm, 06/13/22 14:35:00 CDT, Height, 80.057, kg, 06/13/22 14:35:00 CDT, Weight losartan 25 2021-0 Yes 25 mg = 1 M emoria mg oral 7-29 tab, PO, l tablet 16:29: Daily, # [place] 00 90 tab, 1 Refill(s), Pharmacy: [facility], 162.56, cm, 06/13/22 14:35:00 CDT, Height, 80.057, kg, 06/13/22 14:35:00 CDT, Weight losartan 25 2021-0 Yes 25 mg = 1 M emoria mg oral 7-29 tab, PO, l tablet 16:29: Daily, # [place] 00 90 tab, 1 Refill(s), Pharmacy: [facility], 162.56, cm, 06/13/22 14:35:00 CDT, Height, 80.057, kg, 06/13/22 14:35:00 CDT, Weight losartan 25 2021-0 Yes 25 mg = 1 M emoria mg oral 7-29 tab, PO, l tablet 16:29: Daily, # [place] 00 90 tab, 1 Refill(s), Pharmacy: [facility], 162.56, cm, 06/13/22 14:35:00 CDT, Height, 80.057, kg, 06/13/22 14:35:00 CDT, Weight losartan 25 2021-0 Yes 25 mg = 1 M emoria mg oral 7-29 tab, PO, l tablet 16:29: Daily, # [place] 00 90 tab, 1 Refill(s), Pharmacy: [facility], 162.56, cm, 06/13/22 14:35:00 CDT, Height, 80.057, kg, 06/13/22 14:35:00 CDT, Weight losartan 25 2021-0 Yes 25 mg = 1 M emoria mg oral 7-29 tab, PO, l tablet 16:29: Daily, # [place] 00 90 tab, 1 Refill(s), Pharmacy: [facility], 162.56, cm, 06/13/22 14:35:00 CDT, Height, 80.057, kg, 06/13/22 14:35:00 CDT, Weight losartan 25 2021-0 Yes 25 mg = 1 M emoria mg oral 7-29 tab, PO, l tablet 16:29: Daily, # [place] 00 90 tab, 1 Refill(s), Pharmacy: [facility], 162.56, cm, 06/13/22 14:35:00 CDT, Height, 80.057, kg, 06/13/22 14:35:00 CDT, Weight losartan 25 2-0 Yes 25 mg = 1 M emoria mg oral 7-29 tab, PO, l tablet 16:29: Daily, # Blythe 00 90 tab, 1 Refill(s), Pharmacy: [facility], 162.56, cm, 06/13/22 14:35:00 CDT, Height, 80.057, kg, 06/13/22 14:35:00 CDT, Weight losartan 25 2022-0 Yes 25 mg = 1 M emoria mg oral 7-29 tab, PO, l tablet 16:29: Daily, # Tomas 00 90 tab, 1 Refill(s), Pharmacy: [facility], 162.56, cm, 06/13/22 14:35:00 CDT, Height, 80.057, kg, 06/13/22 14:35:00 CDT, Weight losartan 25 2-0 Yes 25 mg = 1 M emoria mg oral 7-29 tab, PO, l tablet 16:29: Daily, # Blythe 00 90 tab, 1 Refill(s), Pharmacy: [facility], 162.56, cm, 06/13/22 14:35:00 CDT, Height, 80.057, kg, 06/13/22 14:35:00 CDT, Weight losartan 25 2021-0 Yes 25 mg = 1 M emoria mg oral 7-29 tab, PO, l tablet 16:29: Daily, # Tomas 00 90 tab, 1 Refill(s), Pharmacy: [facility], 162.56, cm, 06/13/22 14:35:00 CDT, Height, 80.057, kg, 06/13/22 14:35:00 CDT, Weight losartan 25 2-0 Yes 25 mg = 1 M emoria mg oral 7-29 tab, PO, l tablet 16:29: Daily, # Tomas 00 90 tab, 1 Refill(s), Pharmacy: [facility], 162.56, cm, 06/13/22 14:35:00 CDT, Height, 80.057, kg, 06/13/22 14:35:00 CDT, Weight losartan 25 2-0 Yes 25 mg = 1 M emoria mg oral 7-29 tab, PO, l tablet 16:29: Daily, # Tomas 00 90 tab, 1 Refill(s), Pharmacy: [facility], 162.56, cm, 06/13/22 14:35:00 CDT, Height, 80.057, kg, 06/13/22 14:35:00 CDT, Weight predniSONE 2022-0 Yes 20 mg = 1 Me moria 20 mg oral 7-29 tab, PO, l tablet 16:28: Daily, X 3 Alejandra nn day, # 3 tab, 0 Refill(s), Pharmacy: [facility], 162.56, cm, 06/13/22 14:35:00 CDT, Height, 80.057, kg, 06/13/22 14:35:00 CDT, Weight metoprolol 2-0 Yes 25 mg = 1 Me moria tartrate 25 7-29 tab, PO, l mg oral 16:28: BID, # 60 Alejandra nn tablet 00 tab, 0 Refill(s), Pharmacy: [facility], 162.56, cm, 06/13/22 14:35:00 CDT, Height, 80.057, kg, 06/13/22 14:35:00 CDT, Weight predniSONE 2-0 Yes 20 mg = 1 Me moria 20 mg oral 7-29 tab, PO, l tablet 16:28: Daily, X 3 Alejandra nn day, # 3 tab, 0 Refill(s), Pharmacy: [facility], 162.56, cm, 06/13/22 14:35:00 CDT, Height, 80.057, kg, 06/13/22 14:35:00 CDT, Weight metoprolol 2-0 Yes 25 mg = 1 Me moria tartrate 25 7-29 tab, PO, l mg oral 16:28: BID, # 60 Alejandra nn tablet 00 tab, 0 Refill(s), Pharmacy: [facility], 162.56, cm, 06/13/22 14:35:00 CDT, Height, 80.057, kg, 06/13/22 14:35:00 CDT, Weight predniSONE 2022-0 Yes 20 mg = 1 Me moria 20 mg oral 7-29 tab, PO, l tablet 16:28: Daily, X 3 Alejandra nn day, # 3 tab, 0 Refill(s), Pharmacy: [facility], 162.56, cm, 06/13/22 14:35:00 CDT, Height, 80.057, kg, 06/13/22 14:35:00 CDT, Weight metoprolol 2022-0 Yes 25 mg = 1 Me moria tartrate 25 7-29 tab, PO, l mg oral 16:28: BID, # 60 Alejandra nn tablet 00 tab, 0 Refill(s), Pharmacy: [facility], 162.56, cm, 06/13/22 14:35:00 CDT, Height, 80.057, kg, 06/13/22 14:35:00 CDT, Weight predniSONE 2-0 Yes 20 mg = 1 Me moria 20 mg oral 7-29 tab, PO, l tablet 16:28: Daily, X 3 Alejandra nn 00 day, # 3 tab, 0 Refill(s), Pharmacy: [facility], 162.56, cm, 06/13/22 14:35:00 CDT, Height, 80.057, kg, 06/13/22 14:35:00 CDT, Weight metoprolol 2-0 Yes 25 mg = 1 Me moria tartrate 25 7-29 tab, PO, l mg oral 16:28: BID, # 60 Alejandra nn tablet 00 tab, 0 Refill(s), Pharmacy: [facility], 162.56, cm, 06/13/22 14:35:00 CDT, Height, 80.057, kg, 06/13/22 14:35:00 CDT, Weight predniSONE 2022-0 Yes 20 mg = 1 Me moria 20 mg oral 7-29 tab, PO, l tablet 16:28: Daily, X 3 Alejandra nn 00 day, # 3 tab, 0 Refill(s), Pharmacy: [facility], 162.56, cm, 06/13/22 14:35:00 CDT, Height, 80.057, kg, 06/13/22 14:35:00 CDT, Weight metoprolol 2022-0 Yes 25 mg = 1 Me moria tartrate 25 7-29 tab, PO, l mg oral 16:28: BID, # 60 Alejandra nn tablet 00 tab, 0 Refill(s), Pharmacy: [facility], 162.56, cm, 06/13/22 14:35:00 CDT, Height, 80.057, kg, 06/13/22 14:35:00 CDT, Weight predniSONE 2022-0 Yes 20 mg = 1 Me moria 20 mg oral 7-29 tab, PO, l tablet 16:28: Daily, X 3 Alejandra nn day, # 3 tab, 0 Refill(s), Pharmacy: [facility], 162.56, cm, 06/13/22 14:35:00 CDT, Height, 80.057, kg, 06/13/22 14:35:00 CDT, Weight metoprolol 2-0 Yes 25 mg = 1 Me moria tartrate 25 7-29 tab, PO, l mg oral 16:28: BID, # 60 Alejandra nn tablet 00 tab, 0 Refill(s), Pharmacy: [facility], 162.56, cm, 06/13/22 14:35:00 CDT, Height, 80.057, kg, 06/13/22 14:35:00 CDT, Weight predniSONE 2-0 Yes 20 mg = 1 Me moria 20 mg oral 7-29 tab, PO, l tablet 16:28: Daily, X 3 Alejandra nn day, # 3 tab, 0 Refill(s), Pharmacy: [facility], 162.56, cm, 06/13/22 14:35:00 CDT, Height, 80.057, kg, 06/13/22 14:35:00 CDT, Weight metoprolol 2-0 Yes 25 mg = 1 Me moria tartrate 25 7-29 tab, PO, l mg oral 16:28: BID, # 60 Alejandra nn tablet 00 tab, 0 Refill(s), Pharmacy: [facility], 162.56, cm, 06/13/22 14:35:00 CDT, Height, 80.057, kg, 06/13/22 14:35:00 CDT, Weight predniSONE 2022-0 Yes 20 mg = 1 Me moria 20 mg oral 7-29 tab, PO, l tablet 16:28: Daily, X 3 Alejandra nn day, # 3 tab, 0 Refill(s), Pharmacy: [facility], 162.56, cm, 06/13/22 14:35:00 CDT, Height, 80.057, kg, 06/13/22 14:35:00 CDT, Weight metoprolol 2022-0 Yes 25 mg = 1 Me moria tartrate 25 7-29 tab, PO, l mg oral 16:28: BID, # 60 Alejandra nn tablet 00 tab, 0 Refill(s), Pharmacy: [facility], 162.56, cm, 06/13/22 14:35:00 CDT, Height, 80.057, kg, 06/13/22 14:35:00 CDT, Weight predniSONE 2-0 Yes 20 mg = 1 Me moria 20 mg oral 7-29 tab, PO, l tablet 16:28: Daily, X 3 Alejandra nn 00 day, # 3 tab, 0 Refill(s), Pharmacy: [facility], 162.56, cm, 06/13/22 14:35:00 CDT, Height, 80.057, kg, 06/13/22 14:35:00 CDT, Weight metoprolol 2-0 Yes 25 mg = 1 Me moria tartrate 25 7-29 tab, PO, l mg oral 16:28: BID, # 60 Alejandra nn tablet 00 tab, 0 Refill(s), Pharmacy: [facility], 162.56, cm, 06/13/22 14:35:00 CDT, Height, 80.057, kg, 06/13/22 14:35:00 CDT, Weight predniSONE 2022-0 Yes 20 mg = 1 Me moria 20 mg oral 7-29 tab, PO, l tablet 16:28: Daily, X 3 Alejandra nn 00 day, # 3 tab, 0 Refill(s), Pharmacy: [facility], 162.56, cm, 06/13/22 14:35:00 CDT, Height, 80.057, kg, 06/13/22 14:35:00 CDT, Weight metoprolol 2022-0 Yes 25 mg = 1 Me moria tartrate 25 7-29 tab, PO, l mg oral 16:28: BID, # 60 Alejandra nn tablet 00 tab, 0 Refill(s), Pharmacy: [facility], 162.56, cm, 06/13/22 14:35:00 CDT, Height, 80.057, kg, 06/13/22 14:35:00 CDT, Weight predniSONE 2022-0 Yes 20 mg = 1 Me moria 20 mg oral 7-29 tab, PO, l tablet 16:28: Daily, X 3 Alejandra nn day, # 3 tab, 0 Refill(s), Pharmacy: [facility], 162.56, cm, 06/13/22 14:35:00 CDT, Height, 80.057, kg, 06/13/22 14:35:00 CDT, Weight metoprolol 2-0 Yes 25 mg = 1 Me moria tartrate 25 7-29 tab, PO, l mg oral 16:28: BID, # 60 Alejandra nn tablet 00 tab, 0 Refill(s), Pharmacy: [facility], 162.56, cm, 06/13/22 14:35:00 CDT, Height, 80.057, kg, 06/13/22 14:35:00 CDT, Weight predniSONE 2-0 Yes 20 mg = 1 Me moria 20 mg oral 7-29 tab, PO, l tablet 16:28: Daily, X 3 Alejandra nn day, # 3 tab, 0 Refill(s), Pharmacy: [facility], 162.56, cm, 06/13/22 14:35:00 CDT, Height, 80.057, kg, 06/13/22 14:35:00 CDT, Weight metoprolol 2-0 Yes 25 mg = 1 Me moria tartrate 25 7-29 tab, PO, l mg oral 16:28: BID, # 60 Alejandra nn tablet 00 tab, 0 Refill(s), Pharmacy: [facility], 162.56, cm, 06/13/22 14:35:00 CDT, Height, 80.057, kg, 06/13/22 14:35:00 CDT, Weight predniSONE 2022-0 Yes 20 mg = 1 Me moria 20 mg oral 7-29 tab, PO, l tablet 16:28: Daily, X 3 Alejandra nn day, # 3 tab, 0 Refill(s), Pharmacy: [facility], 162.56, cm, 06/13/22 14:35:00 CDT, Height, 80.057, kg, 06/13/22 14:35:00 CDT, Weight metoprolol 2022-0 Yes 25 mg = 1 Me moria tartrate 25 7-29 tab, PO, l mg oral 16:28: BID, # 60 Alejandra nn tablet 00 tab, 0 Refill(s), Pharmacy: [facility], 162.56, cm, 06/13/22 14:35:00 CDT, Height, 80.057, kg, 06/13/22 14:35:00 CDT, Weight predniSONE 2-0 Yes 20 mg = 1 Me moria 20 mg oral 7-29 tab, PO, l tablet 16:28: Daily, X 3 Alejandra nn 00 day, # 3 tab, 0 Refill(s), Pharmacy: [facility], 162.56, cm, 06/13/22 14:35:00 CDT, Height, 80.057, kg, 06/13/22 14:35:00 CDT, Weight metoprolol 2-0 Yes 25 mg = 1 Me moria tartrate 25 7-29 tab, PO, l mg oral 16:28: BID, # 60 Alejandra nn tablet 00 tab, 0 Refill(s), Pharmacy: [facility], 162.56, cm, 06/13/22 14:35:00 CDT, Height, 80.057, kg, 06/13/22 14:35:00 CDT, Weight predniSONE 2022-0 Yes 20 mg = 1 Me moria 20 mg oral 7-29 tab, PO, l tablet 16:28: Daily, X 3 Alejandra nn 00 day, # 3 tab, 0 Refill(s), Pharmacy: [facility], 162.56, cm, 06/13/22 14:35:00 CDT, Height, 80.057, kg, 06/13/22 14:35:00 CDT, Weight metoprolol 2022-0 Yes 25 mg = 1 Me moria tartrate 25 7-29 tab, PO, l mg oral 16:28: BID, # 60 Alejandra nn tablet 00 tab, 0 Refill(s), Pharmacy: [facility], 162.56, cm, 06/13/22 14:35:00 CDT, Height, 80.057, kg, 06/13/22 14:35:00 CDT, Weight predniSONE 2022-0 Yes 20 mg = 1 Me moria 20 mg oral 7-29 tab, PO, l tablet 16:28: Daily, X 3 Alejandra nn day, # 3 tab, 0 Refill(s), Pharmacy: [facility], 162.56, cm, 06/13/22 14:35:00 CDT, Height, 80.057, kg, 06/13/22 14:35:00 CDT, Weight metoprolol 2-0 Yes 25 mg = 1 Me moria tartrate 25 7-29 tab, PO, l mg oral 16:28: BID, # 60 Alejandra nn tablet 00 tab, 0 Refill(s), Pharmacy: [facility], 162.56, cm, 06/13/22 14:35:00 CDT, Height, 80.057, kg, 06/13/22 14:35:00 CDT, Weight predniSONE 2-0 Yes 20 mg = 1 Me moria 20 mg oral 7-29 tab, PO, l tablet 16:28: Daily, X 3 Alejandra nn day, # 3 tab, 0 Refill(s), Pharmacy: [facility], 162.56, cm, 06/13/22 14:35:00 CDT, Height, 80.057, kg, 06/13/22 14:35:00 CDT, Weight metoprolol 2-0 Yes 25 mg = 1 Me moria tartrate 25 7-29 tab, PO, l mg oral 16:28: BID, # 60 Alejandra nn tablet 00 tab, 0 Refill(s), Pharmacy: [facility], 162.56, cm, 06/13/22 14:35:00 CDT, Height, 80.057, kg, 06/13/22 14:35:00 CDT, Weight predniSONE 2022-0 Yes 20 mg = 1 Me moria 20 mg oral 7-29 tab, PO, l tablet 16:28: Daily, X 3 Alejandra nn day, # 3 tab, 0 Refill(s), Pharmacy: [facility], 162.56, cm, 06/13/22 14:35:00 CDT, Height, 80.057, kg, 06/13/22 14:35:00 CDT, Weight metoprolol 2022-0 Yes 25 mg = 1 Me moria tartrate 25 7-29 tab, PO, l mg oral 16:28: BID, # 60 Alejandra nn tablet 00 tab, 0 Refill(s), Pharmacy: [facility], 162.56, cm, 06/13/22 14:35:00 CDT, Height, 80.057, kg, 06/13/22 14:35:00 CDT, Weight predniSONE 2-0 Yes 20 mg = 1 Me moria 20 mg oral 7-29 tab, PO, l tablet 16:28: Daily, X 3 Alejandra nn 00 day, # 3 tab, 0 Refill(s), Pharmacy: [facility], 162.56, cm, 06/13/22 14:35:00 CDT, Height, 80.057, kg, 06/13/22 14:35:00 CDT, Weight metoprolol 2-0 Yes 25 mg = 1 Me moria tartrate 25 7-29 tab, PO, l mg oral 16:28: BID, # 60 Alejandra nn tablet 00 tab, 0 Refill(s), Pharmacy: [facility], 162.56, cm, 06/13/22 14:35:00 CDT, Height, 80.057, kg, 06/13/22 14:35:00 CDT, Weight predniSONE 2022-0 Yes 20 mg = 1 Me moria 20 mg oral 7-29 tab, PO, l tablet 16:28: Daily, X 3 Alejandra nn 00 day, # 3 tab, 0 Refill(s), Pharmacy: [facility], 162.56, cm, 06/13/22 14:35:00 CDT, Height, 80.057, kg, 06/13/22 14:35:00 CDT, Weight metoprolol 2022-0 Yes 25 mg = 1 Me moria tartrate 25 7-29 tab, PO, l mg oral 16:28: BID, # 60 Alejandra nn tablet 00 tab, 0 Refill(s), Pharmacy: [facility], 162.56, cm, 06/13/22 14:35:00 CDT, Height, 80.057, kg, 06/13/22 14:35:00 CDT, Weight predniSONE 2022-0 Yes 20 mg = 1 Me moria 20 mg oral 7-29 tab, PO, l tablet 16:28: Daily, X 3 Alejandra nn day, # 3 tab, 0 Refill(s), Pharmacy: [facility], 162.56, cm, 06/13/22 14:35:00 CDT, Height, 80.057, kg, 06/13/22 14:35:00 CDT, Weight metoprolol 2-0 Yes 25 mg = 1 Me moria tartrate 25 7-29 tab, PO, l mg oral 16:28: BID, # 60 Alejandra nn tablet 00 tab, 0 Refill(s), Pharmacy: [facility], 162.56, cm, 06/13/22 14:35:00 CDT, Height, 80.057, kg, 06/13/22 14:35:00 CDT, Weight predniSONE 2-0 Yes 20 mg = 1 Me moria 20 mg oral 7-29 tab, PO, l tablet 16:28: Daily, X 3 Alejandra nn day, # 3 tab, 0 Refill(s), Pharmacy: [facility], 162.56, cm, 06/13/22 14:35:00 CDT, Height, 80.057, kg, 06/13/22 14:35:00 CDT, Weight metoprolol 2-0 Yes 25 mg = 1 Me moria tartrate 25 7-29 tab, PO, l mg oral 16:28: BID, # 60 Alejandra nn tablet 00 tab, 0 Refill(s), Pharmacy: [facility], 162.56, cm, 06/13/22 14:35:00 CDT, Height, 80.057, kg, 06/13/22 14:35:00 CDT, Weight predniSONE 2022-0 Yes 20 mg = 1 Me moria 20 mg oral 7-29 tab, PO, l tablet 16:28: Daily, X 3 Alejandra nn day, # 3 tab, 0 Refill(s), Pharmacy: [facility], 162.56, cm, 06/13/22 14:35:00 CDT, Height, 80.057, kg, 06/13/22 14:35:00 CDT, Weight metoprolol 2022-0 Yes 25 mg = 1 Me moria tartrate 25 7-29 tab, PO, l mg oral 16:28: BID, # 60 Alejandra nn tablet 00 tab, 0 Refill(s), Pharmacy: [facility], 162.56, cm, 06/13/22 14:35:00 CDT, Height, 80.057, kg, 06/13/22 14:35:00 CDT, Weight predniSONE 2-0 Yes 20 mg = 1 Me moria 20 mg oral 7-29 tab, PO, l tablet 16:28: Daily, X 3 Alejandra nn 00 day, # 3 tab, 0 Refill(s), Pharmacy: [facility], 162.56, cm, 06/13/22 14:35:00 CDT, Height, 80.057, kg, 06/13/22 14:35:00 CDT, Weight metoprolol 2-0 Yes 25 mg = 1 Me moria tartrate 25 7-29 tab, PO, l mg oral 16:28: BID, # 60 Alejandra nn tablet 00 tab, 0 Refill(s), Pharmacy: [facility], 162.56, cm, 06/13/22 14:35:00 CDT, Height, 80.057, kg, 06/13/22 14:35:00 CDT, Weight predniSONE 2022-0 Yes 20 mg = 1 Me moria 20 mg oral 7-29 tab, PO, l tablet 16:28: Daily, X 3 Alejandra nn 00 day, # 3 tab, 0 Refill(s), Pharmacy: [facility], 162.56, cm, 06/13/22 14:35:00 CDT, Height, 80.057, kg, 06/13/22 14:35:00 CDT, Weight metoprolol 2022-0 Yes 25 mg = 1 Me moria tartrate 25 7-29 tab, PO, l mg oral 16:28: BID, # 60 Alejandra nn tablet 00 tab, 0 Refill(s), Pharmacy: [facility], 162.56, cm, 06/13/22 14:35:00 CDT, Height, 80.057, kg, 06/13/22 14:35:00 CDT, Weight predniSONE 2022-0 Yes 20 mg = 1 Me moria 20 mg oral 7-29 tab, PO, l tablet 16:28: Daily, X 3 Alejandra nn day, # 3 tab, 0 Refill(s), Pharmacy: [facility], 162.56, cm, 06/13/22 14:35:00 CDT, Height, 80.057, kg, 06/13/22 14:35:00 CDT, Weight metoprolol 2-0 Yes 25 mg = 1 Me moria tartrate 25 7-29 tab, PO, l mg oral 16:28: BID, # 60 Alejandra nn tablet 00 tab, 0 Refill(s), Pharmacy: [facility], 162.56, cm, 06/13/22 14:35:00 CDT, Height, 80.057, kg, 06/13/22 14:35:00 CDT, Weight predniSONE 2-0 Yes 20 mg = 1 Me moria 20 mg oral 7-29 tab, PO, l tablet 16:28: Daily, X 3 Alejandra nn day, # 3 tab, 0 Refill(s), Pharmacy: [facility], 162.56, cm, 06/13/22 14:35:00 CDT, Height, 80.057, kg, 06/13/22 14:35:00 CDT, Weight metoprolol 2-0 Yes 25 mg = 1 Me moria tartrate 25 7-29 tab, PO, l mg oral 16:28: BID, # 60 Alejandra nn tablet 00 tab, 0 Refill(s), Pharmacy: [facility], 162.56, cm, 06/13/22 14:35:00 CDT, Height, 80.057, kg, 06/13/22 14:35:00 CDT, Weight predniSONE 2022-0 Yes 20 mg = 1 Me moria 20 mg oral 7-29 tab, PO, l tablet 16:28: Daily, X 3 Alejandra nn day, # 3 tab, 0 Refill(s), Pharmacy: [facility], 162.56, cm, 06/13/22 14:35:00 CDT, Height, 80.057, kg, 06/13/22 14:35:00 CDT, Weight metoprolol 2022-0 Yes 25 mg = 1 Me moria tartrate 25 7-29 tab, PO, l mg oral 16:28: BID, # 60 Alejandra nn tablet 00 tab, 0 Refill(s), Pharmacy: [facility], 162.56, cm, 06/13/22 14:35:00 CDT, Height, 80.057, kg, 06/13/22 14:35:00 CDT, Weight predniSONE 2-0 Yes 20 mg = 1 Me moria 20 mg oral 7-29 tab, PO, l tablet 16:28: Daily, X 3 Alejandra nn 00 day, # 3 tab, 0 Refill(s), Pharmacy: [facility], 162.56, cm, 06/13/22 14:35:00 CDT, Height, 80.057, kg, 06/13/22 14:35:00 CDT, Weight metoprolol 2-0 Yes 25 mg = 1 Me moria tartrate 25 7-29 tab, PO, l mg oral 16:28: BID, # 60 Alejandra nn tablet 00 tab, 0 Refill(s), Pharmacy: [facility], 162.56, cm, 06/13/22 14:35:00 CDT, Height, 80.057, kg, 06/13/22 14:35:00 CDT, Weight predniSONE 2022-0 Yes 20 mg = 1 Me moria 20 mg oral 7-29 tab, PO, l tablet 16:28: Daily, X 3 Alejandra nn 00 day, # 3 tab, 0 Refill(s), Pharmacy: [facility], 162.56, cm, 06/13/22 14:35:00 CDT, Height, 80.057, kg, 06/13/22 14:35:00 CDT, Weight metoprolol 2022-0 Yes 25 mg = 1 Me moria tartrate 25 7-29 tab, PO, l mg oral 16:28: BID, # 60 Alejandra nn tablet 00 tab, 0 Refill(s), Pharmacy: [facility], 162.56, cm, 06/13/22 14:35:00 CDT, Height, 80.057, kg, 06/13/22 14:35:00 CDT, Weight predniSONE 2022-0 Yes 20 mg = 1 Me moria 20 mg oral 7-29 tab, PO, l tablet 16:28: Daily, X 3 Alejandra nn day, # 3 tab, 0 Refill(s), Pharmacy: [facility], 162.56, cm, 06/13/22 14:35:00 CDT, Height, 80.057, kg, 06/13/22 14:35:00 CDT, Weight metoprolol 2-0 Yes 25 mg = 1 Me moria tartrate 25 7-29 tab, PO, l mg oral 16:28: BID, # 60 Alejandra nn tablet 00 tab, 0 Refill(s), Pharmacy: [facility], 162.56, cm, 06/13/22 14:35:00 CDT, Height, 80.057, kg, 06/13/22 14:35:00 CDT, Weight predniSONE 2-0 Yes 20 mg = 1 Me moria 20 mg oral 7-29 tab, PO, l tablet 16:28: Daily, X 3 Alejandra nn day, # 3 tab, 0 Refill(s), Pharmacy: [facility], 162.56, cm, 06/13/22 14:35:00 CDT, Height, 80.057, kg, 06/13/22 14:35:00 CDT, Weight metoprolol 2-0 Yes 25 mg = 1 Me moria tartrate 25 7-29 tab, PO, l mg oral 16:28: BID, # 60 Alejandra nn tablet 00 tab, 0 Refill(s), Pharmacy: [facility], 162.56, cm, 06/13/22 14:35:00 CDT, Height, 80.057, kg, 06/13/22 14:35:00 CDT, Weight predniSONE 2022-0 Yes 20 mg = 1 Me moria 20 mg oral 7-29 tab, PO, l tablet 16:28: Daily, X 3 Alejandra nn day, # 3 tab, 0 Refill(s), Pharmacy: [facility], 162.56, cm, 06/13/22 14:35:00 CDT, Height, 80.057, kg, 06/13/22 14:35:00 CDT, Weight metoprolol 2022-0 Yes 25 mg = 1 Me moria tartrate 25 7-29 tab, PO, l mg oral 16:28: BID, # 60 Alejandra nn tablet 00 tab, 0 Refill(s), Pharmacy: [facility], 162.56, cm, 06/13/22 14:35:00 CDT, Height, 80.057, kg, 06/13/22 14:35:00 CDT, Weight predniSONE 2-0 Yes 20 mg = 1 Me moria 20 mg oral 7-29 tab, PO, l tablet 16:28: Daily, X 3 Alejandra nn 00 day, # 3 tab, 0 Refill(s), Pharmacy: [facility], 162.56, cm, 06/13/22 14:35:00 CDT, Height, 80.057, kg, 06/13/22 14:35:00 CDT, Weight metoprolol 2-0 Yes 25 mg = 1 Me moria tartrate 25 7-29 tab, PO, l mg oral 16:28: BID, # 60 Alejandra nn tablet 00 tab, 0 Refill(s), Pharmacy: [facility], 162.56, cm, 06/13/22 14:35:00 CDT, Height, 80.057, kg, 06/13/22 14:35:00 CDT, Weight predniSONE 2022-0 Yes 20 mg = 1 Me moria 20 mg oral 7-29 tab, PO, l tablet 16:28: Daily, X 3 Alejandra nn 00 day, # 3 tab, 0 Refill(s), Pharmacy: [facility], 162.56, cm, 06/13/22 14:35:00 CDT, Height, 80.057, kg, 06/13/22 14:35:00 CDT, Weight metoprolol 2022-0 Yes 25 mg = 1 Me moria tartrate 25 7-29 tab, PO, l mg oral 16:28: BID, # 60 Alejandra nn tablet 00 tab, 0 Refill(s), Pharmacy: [facility], 162.56, cm, 06/13/22 14:35:00 CDT, Height, 80.057, kg, 06/13/22 14:35:00 CDT, Weight predniSONE 2022-0 Yes 20 mg = 1 Me moria 20 mg oral 7-29 tab, PO, l tablet 16:28: Daily, X 3 Alejandra nn day, # 3 tab, 0 Refill(s), Pharmacy: [facility], 162.56, cm, 06/13/22 14:35:00 CDT, Height, 80.057, kg, 06/13/22 14:35:00 CDT, Weight metoprolol 2-0 Yes 25 mg = 1 Me moria tartrate 25 7-29 tab, PO, l mg oral 16:28: BID, # 60 Alejandra nn tablet 00 tab, 0 Refill(s), Pharmacy: [facility], 162.56, cm, 06/13/22 14:35:00 CDT, Height, 80.057, kg, 06/13/22 14:35:00 CDT, Weight predniSONE 2-0 Yes 20 mg = 1 Me moria 20 mg oral 7-29 tab, PO, l tablet 16:28: Daily, X 3 Alejandra nn day, # 3 tab, 0 Refill(s), Pharmacy: [facility], 162.56, cm, 06/13/22 14:35:00 CDT, Height, 80.057, kg, 06/13/22 14:35:00 CDT, Weight metoprolol 2-0 Yes 25 mg = 1 Me moria tartrate 25 7-29 tab, PO, l mg oral 16:28: BID, # 60 Alejandra nn tablet 00 tab, 0 Refill(s), Pharmacy: [facility], 162.56, cm, 06/13/22 14:35:00 CDT, Height, 80.057, kg, 06/13/22 14:35:00 CDT, Weight predniSONE 2022-0 Yes 20 mg = 1 Me moria 20 mg oral 7-29 tab, PO, l tablet 16:28: Daily, X 3 Alejandra nn day, # 3 tab, 0 Refill(s), Pharmacy: [facility], 162.56, cm, 06/13/22 14:35:00 CDT, Height, 80.057, kg, 06/13/22 14:35:00 CDT, Weight metoprolol 2022-0 Yes 25 mg = 1 Me moria tartrate 25 7-29 tab, PO, l mg oral 16:28: BID, # 60 Alejandra nn tablet 00 tab, 0 Refill(s), Pharmacy: [facility], 162.56, cm, 06/13/22 14:35:00 CDT, Height, 80.057, kg, 06/13/22 14:35:00 CDT, Weight predniSONE 2-0 Yes 20 mg = 1 Me moria 20 mg oral 7-29 tab, PO, l tablet 16:28: Daily, X 3 Alejandra nn 00 day, # 3 tab, 0 Refill(s), Pharmacy: [facility], 162.56, cm, 06/13/22 14:35:00 CDT, Height, 80.057, kg, 06/13/22 14:35:00 CDT, Weight metoprolol 2-0 Yes 25 mg = 1 Me moria tartrate 25 7-29 tab, PO, l mg oral 16:28: BID, # 60 Alejandra nn tablet 00 tab, 0 Refill(s), Pharmacy: [facility], 162.56, cm, 06/13/22 14:35:00 CDT, Height, 80.057, kg, 06/13/22 14:35:00 CDT, Weight predniSONE 2022-0 Yes 20 mg = 1 Me moria 20 mg oral 7-29 tab, PO, l tablet 16:28: Daily, X 3 Alejandra nn 00 day, # 3 tab, 0 Refill(s), Pharmacy: [facility], 162.56, cm, 06/13/22 14:35:00 CDT, Height, 80.057, kg, 06/13/22 14:35:00 CDT, Weight metoprolol 2022-0 Yes 25 mg = 1 Me moria tartrate 25 7-29 tab, PO, l mg oral 16:28: BID, # 60 Alejandra nn tablet 00 tab, 0 Refill(s), Pharmacy: [facility], 162.56, cm, 06/13/22 14:35:00 CDT, Height, 80.057, kg, 06/13/22 14:35:00 CDT, Weight predniSONE 2022-0 Yes 20 mg = 1 Me moria 20 mg oral 7-29 tab, PO, l tablet 16:28: Daily, X 3 Alejandra nn day, # 3 tab, 0 Refill(s), Pharmacy: [facility], 162.56, cm, 06/13/22 14:35:00 CDT, Height, 80.057, kg, 06/13/22 14:35:00 CDT, Weight metoprolol 2-0 Yes 25 mg = 1 Me moria tartrate 25 7-29 tab, PO, l mg oral 16:28: BID, # 60 Alejandra nn tablet 00 tab, 0 Refill(s), Pharmacy: [facility], 162.56, cm, 06/13/22 14:35:00 CDT, Height, 80.057, kg, 06/13/22 14:35:00 CDT, Weight predniSONE 2-0 Yes 20 mg = 1 Me moria 20 mg oral 7-29 tab, PO, l tablet 16:28: Daily, X 3 Alejandra nn day, # 3 tab, 0 Refill(s), Pharmacy: [facility], 162.56, cm, 06/13/22 14:35:00 CDT, Height, 80.057, kg, 06/13/22 14:35:00 CDT, Weight metoprolol 2-0 Yes 25 mg = 1 Me moria tartrate 25 7-29 tab, PO, l mg oral 16:28: BID, # 60 Alejandra nn tablet 00 tab, 0 Refill(s), Pharmacy: [facility], 162.56, cm, 06/13/22 14:35:00 CDT, Height, 80.057, kg, 06/13/22 14:35:00 CDT, Weight predniSONE 2022-0 Yes 20 mg = 1 Me moria 20 mg oral 7-29 tab, PO, l tablet 16:28: Daily, X 3 Alejandra nn day, # 3 tab, 0 Refill(s), Pharmacy: [facility], 162.56, cm, 06/13/22 14:35:00 CDT, Height, 80.057, kg, 06/13/22 14:35:00 CDT, Weight metoprolol 2022-0 Yes 25 mg = 1 Me moria tartrate 25 7-29 tab, PO, l mg oral 16:28: BID, # 60 Alejandra nn tablet 00 tab, 0 Refill(s), Pharmacy: [facility], 162.56, cm, 06/13/22 14:35:00 CDT, Height, 80.057, kg, 06/13/22 14:35:00 CDT, Weight predniSONE 2-0 Yes 20 mg = 1 Me moria 20 mg oral 7-29 tab, PO, l tablet 16:28: Daily, X 3 Alejandra nn 00 day, # 3 tab, 0 Refill(s), Pharmacy: [facility], 162.56, cm, 06/13/22 14:35:00 CDT, Height, 80.057, kg, 06/13/22 14:35:00 CDT, Weight metoprolol 2-0 Yes 25 mg = 1 Me moria tartrate 25 7-29 tab, PO, l mg oral 16:28: BID, # 60 Alejandra nn tablet 00 tab, 0 Refill(s), Pharmacy: [facility], 162.56, cm, 06/13/22 14:35:00 CDT, Height, 80.057, kg, 06/13/22 14:35:00 CDT, Weight predniSONE 2022-0 Yes 20 mg = 1 Me moria 20 mg oral 7-29 tab, PO, l tablet 16:28: Daily, X 3 Alejandra nn 00 day, # 3 tab, 0 Refill(s), Pharmacy: [facility], 162.56, cm, 06/13/22 14:35:00 CDT, Height, 80.057, kg, 06/13/22 14:35:00 CDT, Weight metoprolol 2022-0 Yes 25 mg = 1 Me moria tartrate 25 7-29 tab, PO, l mg oral 16:28: BID, # 60 Alejandra nn tablet 00 tab, 0 Refill(s), Pharmacy: [facility], 162.56, cm, 06/13/22 14:35:00 CDT, Height, 80.057, kg, 06/13/22 14:35:00 CDT, Weight predniSONE 2022-0 Yes 20 mg = 1 Me moria 20 mg oral 7-29 tab, PO, l tablet 16:28: Daily, X 3 Alejandra nn day, # 3 tab, 0 Refill(s), Pharmacy: [facility], 162.56, cm, 06/13/22 14:35:00 CDT, Height, 80.057, kg, 06/13/22 14:35:00 CDT, Weight metoprolol 2-0 Yes 25 mg = 1 Me moria tartrate 25 7-29 tab, PO, l mg oral 16:28: BID, # 60 Alejandra nn tablet 00 tab, 0 Refill(s), Pharmacy: [facility], 162.56, cm, 06/13/22 14:35:00 CDT, Height, 80.057, kg, 06/13/22 14:35:00 CDT, Weight predniSONE 2-0 Yes 20 mg = 1 Me moria 20 mg oral 7-29 tab, PO, l tablet 16:28: Daily, X 3 Alejandra nn day, # 3 tab, 0 Refill(s), Pharmacy: [facility], 162.56, cm, 06/13/22 14:35:00 CDT, Height, 80.057, kg, 06/13/22 14:35:00 CDT, Weight metoprolol 2-0 Yes 25 mg = 1 Me moria tartrate 25 7-29 tab, PO, l mg oral 16:28: BID, # 60 Alejandra nn tablet 00 tab, 0 Refill(s), Pharmacy: [facility], 162.56, cm, 06/13/22 14:35:00 CDT, Height, 80.057, kg, 06/13/22 14:35:00 CDT, Weight predniSONE 2022-0 Yes 20 mg = 1 Me moria 20 mg oral 7-29 tab, PO, l tablet 16:28: Daily, X 3 Alejandra nn day, # 3 tab, 0 Refill(s), Pharmacy: [facility], 162.56, cm, 06/13/22 14:35:00 CDT, Height, 80.057, kg, 06/13/22 14:35:00 CDT, Weight metoprolol 2022-0 Yes 25 mg = 1 Me moria tartrate 25 7-29 tab, PO, l mg oral 16:28: BID, # 60 Alejandra nn tablet 00 tab, 0 Refill(s), Pharmacy: [facility], 162.56, cm, 06/13/22 14:35:00 CDT, Height, 80.057, kg, 06/13/22 14:35:00 CDT, Weight predniSONE 2-0 Yes 20 mg = 1 Me moria 20 mg oral 7-29 tab, PO, l tablet 16:28: Daily, X 3 Alejandra nn 00 day, # 3 tab, 0 Refill(s), Pharmacy: [facility], 162.56, cm, 06/13/22 14:35:00 CDT, Height, 80.057, kg, 06/13/22 14:35:00 CDT, Weight metoprolol 2-0 Yes 25 mg = 1 Me moria tartrate 25 7-29 tab, PO, l mg oral 16:28: BID, # 60 Alejandra nn tablet 00 tab, 0 Refill(s), Pharmacy: [facility], 162.56, cm, 06/13/22 14:35:00 CDT, Height, 80.057, kg, 06/13/22 14:35:00 CDT, Weight predniSONE 2022-0 Yes 20 mg = 1 Me moria 20 mg oral 7-29 tab, PO, l tablet 16:28: Daily, X 3 Alejandra nn 00 day, # 3 tab, 0 Refill(s), Pharmacy: [facility], 162.56, cm, 06/13/22 14:35:00 CDT, Height, 80.057, kg, 06/13/22 14:35:00 CDT, Weight metoprolol 2022-0 Yes 25 mg = 1 Me moria tartrate 25 7-29 tab, PO, l mg oral 16:28: BID, # 60 Alejandra nn tablet 00 tab, 0 Refill(s), Pharmacy: [facility], 162.56, cm, 06/13/22 14:35:00 CDT, Height, 80.057, kg, 06/13/22 14:35:00 CDT, Weight predniSONE 2022-0 Yes 20 mg = 1 Me moria 20 mg oral 7-29 tab, PO, l tablet 16:28: Daily, X 3 Alejandra nn day, # 3 tab, 0 Refill(s), Pharmacy: [facility], 162.56, cm, 06/13/22 14:35:00 CDT, Height, 80.057, kg, 06/13/22 14:35:00 CDT, Weight metoprolol 2-0 Yes 25 mg = 1 Me moria tartrate 25 7-29 tab, PO, l mg oral 16:28: BID, # 60 Alejandra nn tablet 00 tab, 0 Refill(s), Pharmacy: [facility], 162.56, cm, 06/13/22 14:35:00 CDT, Height, 80.057, kg, 06/13/22 14:35:00 CDT, Weight predniSONE 2-0 Yes 20 mg = 1 Me moria 20 mg oral 7-29 tab, PO, l tablet 16:28: Daily, X 3 Alejandra nn day, # 3 tab, 0 Refill(s), Pharmacy: [facility], 162.56, cm, 06/13/22 14:35:00 CDT, Height, 80.057, kg, 06/13/22 14:35:00 CDT, Weight metoprolol 2-0 Yes 25 mg = 1 Me moria tartrate 25 7-29 tab, PO, l mg oral 16:28: BID, # 60 Alejandra nn tablet 00 tab, 0 Refill(s), Pharmacy: [facility], 162.56, cm, 06/13/22 14:35:00 CDT, Height, 80.057, kg, 06/13/22 14:35:00 CDT, Weight predniSONE 2022-0 Yes 20 mg = 1 Me moria 20 mg oral 7-29 tab, PO, l tablet 16:28: Daily, X 3 Alejandra nn day, # 3 tab, 0 Refill(s), Pharmacy: [facility], 162.56, cm, 06/13/22 14:35:00 CDT, Height, 80.057, kg, 06/13/22 14:35:00 CDT, Weight metoprolol 2021-0 Yes 25 mg = 1 Me moria tartrate 25 7-29 tab, PO, l mg oral 16:28: BID, # 60 Alejandra nn tablet 00 tab, 0 Refill(s), Pharmacy: [facility], 162.56, cm, 06/13/22 14:35:00 CDT, Height, 80.057, kg, 06/13/22 14:35:00 CDT, Weight benzonatate 0 Yes 200 mg = 1 Memoria 200 mg oral 7-29 cap, PO, l capsule 16:27: TID, do Blythe 00 not crush or chew, X 10 day, # 30 cap, 0 Refill(s), Pharmacy: [facility], 162.56, cm, 06/13/22 14:35:00 CDT, Height, 80.057, kg, 06/13/22 14:35:00 CDT, Weight bumetanide 2021-0 Yes 1 mg = 1 Mem oria 1 mg oral 7-29 tab, PO, l tablet 16:27: BID, # 60 Harish n 00 tab, 1 Refill(s), Pharmacy: [facility], 162.56, cm, 06/13/22 14:35:00 CDT, Height, 80.057, kg, 06/13/22 14:35:00 CDT, Weight dextrometho 2021-0 Yes 10 mL, PO, Memoria rphan-guaiF 7-29 Q6H, PRN l ENesin 10 16:27: Cough, X Herm nupur mg-200 mg/5 00 14 day, # mL oral 120 mL, 0 liquid Refill(s), Pharmacy: [facility], 162.56, cm, 06/13/22 14:35:00 CDT, Height, 80.057, kg, 06/13/22 14:35:00 CDT, Weight benzonatate 2021-0 Yes 200 mg = 1 Memoria 200 mg oral 7-29 cap, PO, l capsule 16:27: TID, do Tomas 00 not crush or chew, X 10 day, # 30 cap, 0 Refill(s), Pharmacy: [facility], 162.56, cm, 06/13/22 14:35:00 CDT, Height, 80.057, kg, 06/13/22 14:35:00 CDT, Weight bumetanide 2021-0 Yes 1 mg = 1 Mem oria 1 mg oral 7-29 tab, PO, l tablet 16:27: BID, # 60 Harish n 00 tab, 1 Refill(s), Pharmacy: [facility], 162.56, cm, 06/13/22 14:35:00 CDT, Height, 80.057, kg, 06/13/22 14:35:00 CDT, Weight dextrometho 2021-0 Yes 10 mL, PO, Memoria rphan-guaiF 7-29 Q6H, PRN l ENesin 10 16:27: Cough, X Herm nupur mg-200 mg/5 00 14 day, # mL oral 120 mL, 0 liquid Refill(s), Pharmacy: [facility], 162.56, cm, 06/13/22 14:35:00 CDT, Height, 80.057, kg, 06/13/22 14:35:00 CDT, Weight benzonatate 2021-0 Yes 200 mg = 1 Memoria 200 mg oral 7-29 cap, PO, l capsule 16:27: TID, do Tomas 00 not crush or chew, X 10 day, # 30 cap, 0 Refill(s), Pharmacy: [facility], 162.56, cm, 06/13/22 14:35:00 CDT, Height, 80.057, kg, 06/13/22 14:35:00 CDT, Weight bumetanide 2021-0 Yes 1 mg = 1 Mem oria 1 mg oral 7-29 tab, PO, l tablet 16:27: BID, # 60 Harish n 00 tab, 1 Refill(s), Pharmacy: [facility], 162.56, cm, 06/13/22 14:35:00 CDT, Height, 80.057, kg, 06/13/22 14:35:00 CDT, Weight dextrometho 2021-0 Yes 10 mL, PO, Memoria rphan-guaiF 7-29 Q6H, PRN l ENesin 10 16:27: Cough, X Herm nupur mg-200 mg/5 00 14 day, # mL oral 120 mL, 0 liquid Refill(s), Pharmacy: [facility], 162.56, cm, 06/13/22 14:35:00 CDT, Height, 80.057, kg, 06/13/22 14:35:00 CDT, Weight benzonatate 2021-0 Yes 200 mg = 1 Memoria 200 mg oral 7-29 cap, PO, l capsule 16:27: TID, do Blythe 00 not crush or chew, X 10 day, # 30 cap, 0 Refill(s), Pharmacy: [facility], 162.56, cm, 06/13/22 14:35:00 CDT, Height, 80.057, kg, 06/13/22 14:35:00 CDT, Weight bumetanide 2021-0 Yes 1 mg = 1 Mem oria 1 mg oral 7-29 tab, PO, l tablet 16:27: BID, # 60 Harish n 00 tab, 1 Refill(s), Pharmacy: [facility], 162.56, cm, 06/13/22 14:35:00 CDT, Height, 80.057, kg, 06/13/22 14:35:00 CDT, Weight dextrometho 2021-0 Yes 10 mL, PO, Memoria rphan-guaiF 7-29 Q6H, PRN l ENesin 10 16:27: Cough, X Herm nupur mg-200 mg/5 00 14 day, # mL oral 120 mL, 0 liquid Refill(s), Pharmacy: [facility], 162.56, cm, 06/13/22 14:35:00 CDT, Height, 80.057, kg, 06/13/22 14:35:00 CDT, Weight benzonatate 2021-0 Yes 200 mg = 1 Memoria 200 mg oral 7-29 cap, PO, l capsule 16:27: TID, do Blythe 00 not crush or chew, X 10 day, # 30 cap, 0 Refill(s), Pharmacy: [facility], 162.56, cm, 06/13/22 14:35:00 CDT, Height, 80.057, kg, 06/13/22 14:35:00 CDT, Weight bumetanide 2021-0 Yes 1 mg = 1 Mem oria 1 mg oral 7-29 tab, PO, l tablet 16:27: BID, # 60 Harish n 00 tab, 1 Refill(s), Pharmacy: [facility], 162.56, cm, 06/13/22 14:35:00 CDT, Height, 80.057, kg, 06/13/22 14:35:00 CDT, Weight dextrometho 2021-0 Yes 10 mL, PO, Memoria rphan-guaiF 7-29 Q6H, PRN l ENesin 10 16:27: Cough, X Herm nupur mg-200 mg/5 00 14 day, # mL oral 120 mL, 0 liquid Refill(s), Pharmacy: [facility], 162.56, cm, 06/13/22 14:35:00 CDT, Height, 80.057, kg, 06/13/22 14:35:00 CDT, Weight benzonatate 2021-0 Yes 200 mg = 1 Memoria 200 mg oral 7-29 cap, PO, l capsule 16:27: TID, do Blythe 00 not crush or chew, X 10 day, # 30 cap, 0 Refill(s), Pharmacy: [facility], 162.56, cm, 06/13/22 14:35:00 CDT, Height, 80.057, kg, 06/13/22 14:35:00 CDT, Weight bumetanide 2021-0 Yes 1 mg = 1 Mem oria 1 mg oral 7-29 tab, PO, l tablet 16:27: BID, # 60 Harish n 00 tab, 1 Refill(s), Pharmacy: [facility], 162.56, cm, 06/13/22 14:35:00 CDT, Height, 80.057, kg, 06/13/22 14:35:00 CDT, Weight dextrometho 2021-0 Yes 10 mL, PO, Memoria rphan-guaiF 7-29 Q6H, PRN l ENesin 10 16:27: Cough, X Herm nupur mg-200 mg/5 00 14 day, # mL oral 120 mL, 0 liquid Refill(s), Pharmacy: [facility], 162.56, cm, 06/13/22 14:35:00 CDT, Height, 80.057, kg, 06/13/22 14:35:00 CDT, Weight benzonatate 2021-0 Yes 200 mg = 1 Memoria 200 mg oral 7-29 cap, PO, l capsule 16:27: TID, do Blythe 00 not crush or chew, X 10 day, # 30 cap, 0 Refill(s), Pharmacy: [facility], 162.56, cm, 06/13/22 14:35:00 CDT, Height, 80.057, kg, 06/13/22 14:35:00 CDT, Weight bumetanide 0 Yes 1 mg = 1 Mem oria 1 mg oral 7-29 tab, PO, l tablet 16:27: BID, # 60 Harish n 00 tab, 1 Refill(s), Pharmacy: [facility], 162.56, cm, 06/13/22 14:35:00 CDT, Height, 80.057, kg, 06/13/22 14:35:00 CDT, Weight dextrometho 2021-0 Yes 10 mL, PO, Memoria rphan-guaiF 7-29 Q6H, PRN l ENesin 10 16:27: Cough, X Herm nupur mg-200 mg/5 00 14 day, # mL oral 120 mL, 0 liquid Refill(s), Pharmacy: [facility], 162.56, cm, 06/13/22 14:35:00 CDT, Height, 80.057, kg, 06/13/22 14:35:00 CDT, Weight benzonatate 2021-0 Yes 200 mg = 1 Memoria 200 mg oral 7-29 cap, PO, l capsule 16:27: TID, do Tomas 00 not crush or chew, X 10 day, # 30 cap, 0 Refill(s), Pharmacy: [facility], 162.56, cm, 06/13/22 14:35:00 CDT, Height, 80.057, kg, 06/13/22 14:35:00 CDT, Weight bumetanide 2021-0 Yes 1 mg = 1 Mem oria 1 mg oral 7-29 tab, PO, l tablet 16:27: BID, # 60 Harish n 00 tab, 1 Refill(s), Pharmacy: [facility], 162.56, cm, 06/13/22 14:35:00 CDT, Height, 80.057, kg, 06/13/22 14:35:00 CDT, Weight dextrometho 2021-0 Yes 10 mL, PO, Memoria rphan-guaiF 7-29 Q6H, PRN l ENesin 10 16:27: Cough, X Herm nupur mg-200 mg/5 00 14 day, # mL oral 120 mL, 0 liquid Refill(s), Pharmacy: [facility], 162.56, cm, 06/13/22 14:35:00 CDT, Height, 80.057, kg, 06/13/22 14:35:00 CDT, Weight benzonatate 2021-0 Yes 200 mg = 1 Memoria 200 mg oral 7-29 cap, PO, l capsule 16:27: TID, do Blythe 00 not crush or chew, X 10 day, # 30 cap, 0 Refill(s), Pharmacy: [facility], 162.56, cm, 06/13/22 14:35:00 CDT, Height, 80.057, kg, 06/13/22 14:35:00 CDT, Weight bumetanide 2021-0 Yes 1 mg = 1 Mem oria 1 mg oral 7-29 tab, PO, l tablet 16:27: BID, # 60 Harish n 00 tab, 1 Refill(s), Pharmacy: [facility], 162.56, cm, 06/13/22 14:35:00 CDT, Height, 80.057, kg, 06/13/22 14:35:00 CDT, Weight dextrometho 2021-0 Yes 10 mL, PO, Memoria rphan-guaiF 7-29 Q6H, PRN l ENesin 10 16:27: Cough, X Herm nupur mg-200 mg/5 00 14 day, # mL oral 120 mL, 0 liquid Refill(s), Pharmacy: [facility], 162.56, cm, 06/13/22 14:35:00 CDT, Height, 80.057, kg, 06/13/22 14:35:00 CDT, Weight benzonatate 2021-0 Yes 200 mg = 1 Memoria 200 mg oral 7-29 cap, PO, l capsule 16:27: TID, do Blythe 00 not crush or chew, X 10 day, # 30 cap, 0 Refill(s), Pharmacy: [facility], 162.56, cm, 06/13/22 14:35:00 CDT, Height, 80.057, kg, 06/13/22 14:35:00 CDT, Weight bumetanide 2021-0 Yes 1 mg = 1 Mem oria 1 mg oral 7-29 tab, PO, l tablet 16:27: BID, # 60 Harish n 00 tab, 1 Refill(s), Pharmacy: [facility], 162.56, cm, 06/13/22 14:35:00 CDT, Height, 80.057, kg, 06/13/22 14:35:00 CDT, Weight dextrometho 2021-0 Yes 10 mL, PO, Memoria rphan-guaiF 7-29 Q6H, PRN l ENesin 10 16:27: Cough, X Herm nupur mg-200 mg/5 00 14 day, # mL oral 120 mL, 0 liquid Refill(s), Pharmacy: [facility], 162.56, cm, 06/13/22 14:35:00 CDT, Height, 80.057, kg, 06/13/22 14:35:00 CDT, Weight benzonatate 2021-0 Yes 200 mg = 1 Memoria 200 mg oral 7-29 cap, PO, l capsule 16:27: TID, do Blythe 00 not crush or chew, X 10 day, # 30 cap, 0 Refill(s), Pharmacy: [facility], 162.56, cm, 06/13/22 14:35:00 CDT, Height, 80.057, kg, 06/13/22 14:35:00 CDT, Weight bumetanide 2021-0 Yes 1 mg = 1 Mem oria 1 mg oral 7-29 tab, PO, l tablet 16:27: BID, # 60 Harish n 00 tab, 1 Refill(s), Pharmacy: [facility], 162.56, cm, 06/13/22 14:35:00 CDT, Height, 80.057, kg, 06/13/22 14:35:00 CDT, Weight dextrometho 2021-0 Yes 10 mL, PO, Memoria rphan-guaiF 7-29 Q6H, PRN l ENesin 10 16:27: Cough, X Herm nupur mg-200 mg/5 00 14 day, # mL oral 120 mL, 0 liquid Refill(s), Pharmacy: [facility], 162.56, cm, 06/13/22 14:35:00 CDT, Height, 80.057, kg, 06/13/22 14:35:00 CDT, Weight benzonatate 2021-0 Yes 200 mg = 1 Memoria 200 mg oral 7-29 cap, PO, l capsule 16:27: TID, do Blythe 00 not crush or chew, X 10 day, # 30 cap, 0 Refill(s), Pharmacy: [facility], 162.56, cm, 06/13/22 14:35:00 CDT, Height, 80.057, kg, 06/13/22 14:35:00 CDT, Weight bumetanide 2021-0 Yes 1 mg = 1 Mem oria 1 mg oral 7-29 tab, PO, l tablet 16:27: BID, # 60 Harish n 00 tab, 1 Refill(s), Pharmacy: [facility], 162.56, cm, 06/13/22 14:35:00 CDT, Height, 80.057, kg, 06/13/22 14:35:00 CDT, Weight dextrometho 2021-0 Yes 10 mL, PO, Memoria rphan-guaiF 7-29 Q6H, PRN l ENesin 10 16:27: Cough, X Herm nupur mg-200 mg/5 00 14 day, # mL oral 120 mL, 0 liquid Refill(s), Pharmacy: [facility], 162.56, cm, 06/13/22 14:35:00 CDT, Height, 80.057, kg, 06/13/22 14:35:00 CDT, Weight benzonatate 2021-0 Yes 200 mg = 1 Memoria 200 mg oral 7-29 cap, PO, l capsule 16:27: TID, do Tomas 00 not crush or chew, X 10 day, # 30 cap, 0 Refill(s), Pharmacy: [facility], 162.56, cm, 06/13/22 14:35:00 CDT, Height, 80.057, kg, 06/13/22 14:35:00 CDT, Weight bumetanide 2021-0 Yes 1 mg = 1 Mem oria 1 mg oral 7-29 tab, PO, l tablet 16:27: BID, # 60 Harish n 00 tab, 1 Refill(s), Pharmacy: [facility], 162.56, cm, 06/13/22 14:35:00 CDT, Height, 80.057, kg, 06/13/22 14:35:00 CDT, Weight dextrometho 2021-0 Yes 10 mL, PO, Memoria rphan-guaiF 7-29 Q6H, PRN l ENesin 10 16:27: Cough, X Herm nupur mg-200 mg/5 00 14 day, # mL oral 120 mL, 0 liquid Refill(s), Pharmacy: [facility], 162.56, cm, 06/13/22 14:35:00 CDT, Height, 80.057, kg, 06/13/22 14:35:00 CDT, Weight benzonatate 2021-0 Yes 200 mg = 1 Memoria 200 mg oral 7-29 cap, PO, l capsule 16:27: TID, do Blythe 00 not crush or chew, X 10 day, # 30 cap, 0 Refill(s), Pharmacy: [facility], 162.56, cm, 06/13/22 14:35:00 CDT, Height, 80.057, kg, 06/13/22 14:35:00 CDT, Weight bumetanide 2021-0 Yes 1 mg = 1 Mem oria 1 mg oral 7-29 tab, PO, l tablet 16:27: BID, # 60 Harish n 00 tab, 1 Refill(s), Pharmacy: [facility], 162.56, cm, 06/13/22 14:35:00 CDT, Height, 80.057, kg, 06/13/22 14:35:00 CDT, Weight dextrometho 2021-0 Yes 10 mL, PO, Memoria rphan-guaiF 7-29 Q6H, PRN l ENesin 10 16:27: Cough, X Herm nupur mg-200 mg/5 00 14 day, # mL oral 120 mL, 0 liquid Refill(s), Pharmacy: [facility], 162.56, cm, 06/13/22 14:35:00 CDT, Height, 80.057, kg, 06/13/22 14:35:00 CDT, Weight benzonatate 2021-0 Yes 200 mg = 1 Memoria 200 mg oral 7-29 cap, PO, l capsule 16:27: TID, do Blythe 00 not crush or chew, X 10 day, # 30 cap, 0 Refill(s), Pharmacy: [facility], 162.56, cm, 06/13/22 14:35:00 CDT, Height, 80.057, kg, 06/13/22 14:35:00 CDT, Weight bumetanide 2021-0 Yes 1 mg = 1 Mem oria 1 mg oral 7-29 tab, PO, l tablet 16:27: BID, # 60 Harish n 00 tab, 1 Refill(s), Pharmacy: [facility], 162.56, cm, 06/13/22 14:35:00 CDT, Height, 80.057, kg, 06/13/22 14:35:00 CDT, Weight dextrometho 2021-0 Yes 10 mL, PO, Memoria rphan-guaiF 7-29 Q6H, PRN l ENesin 10 16:27: Cough, X Herm nupur mg-200 mg/5 00 14 day, # mL oral 120 mL, 0 liquid Refill(s), Pharmacy: [facility], 162.56, cm, 06/13/22 14:35:00 CDT, Height, 80.057, kg, 06/13/22 14:35:00 CDT, Weight benzonatate 2021-0 Yes 200 mg = 1 Memoria 200 mg oral 7-29 cap, PO, l capsule 16:27: TID, do Blythe 00 not crush or chew, X 10 day, # 30 cap, 0 Refill(s), Pharmacy: [facility] [place], 162.56, cm, 06/13/22 14:35:00 CDT, Height, 80.057, kg, 06/13/22 14:35:00 CDT, Weight bumetanide 2021-0 Yes 1 mg = 1 Mem oria 1 mg oral 7-29 tab, PO, l tablet 16:27: BID, # 60 Harish n 00 tab, 1 Refill(s), Pharmacy: [facility] [place], 162.56, cm, 06/13/22 14:35:00 CDT, Height, 80.057, kg, 06/13/22 14:35:00 CDT, Weight dextrometho 0 Yes 10 mL, PO, Memoria rphan-guaiF 7-29 Q6H, PRN l ENesin 10 16:27: Cough, X Herm nupur mg-200 mg/5 00 14 day, # mL oral 120 mL, 0 liquid Refill(s), Pharmacy: [facility], 162.56, cm, 06/13/22 14:35:00 CDT, Height, 80.057, kg, 06/13/22 14:35:00 CDT, Weight benzonatate 2021-0 Yes 200 mg = 1 Memoria 200 mg oral 7-29 cap, PO, l capsule 16:27: TID, do Blythe 00 not crush or chew, X 10 day, # 30 cap, 0 Refill(s), Pharmacy: [facility], 162.56, cm, 06/13/22 14:35:00 CDT, Height, 80.057, kg, 06/13/22 14:35:00 CDT, Weight bumetanide 2021-0 Yes 1 mg = 1 Mem oria 1 mg oral 7-29 tab, PO, l tablet 16:27: BID, # 60 Harish n 00 tab, 1 Refill(s), Pharmacy: [facility], 162.56, cm, 06/13/22 14:35:00 CDT, Height, 80.057, kg, 06/13/22 14:35:00 CDT, Weight dextrometho 2021-0 Yes 10 mL, PO, Memoria rphan-guaiF 7-29 Q6H, PRN l ENesin 10 16:27: Cough, X Herm nupur mg-200 mg/5 00 14 day, # mL oral 120 mL, 0 liquid Refill(s), Pharmacy: [facility], 162.56, cm, 06/13/22 14:35:00 CDT, Height, 80.057, kg, 06/13/22 14:35:00 CDT, Weight benzonatate 2021-0 Yes 200 mg = 1 Memoria 200 mg oral 7-29 cap, PO, l capsule 16:27: TID, do Blythe 00 not crush or chew, X 10 day, # 30 cap, 0 Refill(s), Pharmacy: [facility], 162.56, cm, 06/13/22 14:35:00 CDT, Height, 80.057, kg, 06/13/22 14:35:00 CDT, Weight bumetanide 2021-0 Yes 1 mg = 1 Mem oria 1 mg oral 7-29 tab, PO, l tablet 16:27: BID, # 60 Harish n 00 tab, 1 Refill(s), Pharmacy: [facility], 162.56, cm, 06/13/22 14:35:00 CDT, Height, 80.057, kg, 06/13/22 14:35:00 CDT, Weight dextrometho 2021-0 Yes 10 mL, PO, Memoria rphan-guaiF 7-29 Q6H, PRN l ENesin 10 16:27: Cough, X Herm nupur mg-200 mg/5 00 14 day, # mL oral 120 mL, 0 liquid Refill(s), Pharmacy: [facility], 162.56, cm, 06/13/22 14:35:00 CDT, Height, 80.057, kg, 06/13/22 14:35:00 CDT, Weight benzonatate 2021-0 Yes 200 mg = 1 Memoria 200 mg oral 7-29 cap, PO, l capsule 16:27: TID, do Tomas 00 not crush or chew, X 10 day, # 30 cap, 0 Refill(s), Pharmacy: [facility], 162.56, cm, 06/13/22 14:35:00 CDT, Height, 80.057, kg, 06/13/22 14:35:00 CDT, Weight bumetanide 2021-0 Yes 1 mg = 1 Mem oria 1 mg oral 7-29 tab, PO, l tablet 16:27: BID, # 60 Harish n 00 tab, 1 Refill(s), Pharmacy: [facility], 162.56, cm, 06/13/22 14:35:00 CDT, Height, 80.057, kg, 06/13/22 14:35:00 CDT, Weight dextrometho 2021-0 Yes 10 mL, PO, Memoria rphan-guaiF 7-29 Q6H, PRN l ENesin 10 16:27: Cough, X Herm nupur mg-200 mg/5 00 14 day, # mL oral 120 mL, 0 liquid Refill(s), Pharmacy: [facility], 162.56, cm, 06/13/22 14:35:00 CDT, Height, 80.057, kg, 06/13/22 14:35:00 CDT, Weight benzonatate 2021-0 Yes 200 mg = 1 Memoria 200 mg oral 7-29 cap, PO, l capsule 16:27: TID, do Tomas 00 not crush or chew, X 10 day, # 30 cap, 0 Refill(s), Pharmacy: [facility], 162.56, cm, 06/13/22 14:35:00 CDT, Height, 80.057, kg, 06/13/22 14:35:00 CDT, Weight bumetanide 2021-0 Yes 1 mg = 1 Mem oria 1 mg oral 7-29 tab, PO, l tablet 16:27: BID, # 60 Harish n 00 tab, 1 Refill(s), Pharmacy: [facility], 162.56, cm, 06/13/22 14:35:00 CDT, Height, 80.057, kg, 06/13/22 14:35:00 CDT, Weight dextrometho 2-0 Yes 10 mL, PO, Memoria rphan-guaiF 7-29 Q6H, PRN l ENesin 10 16:27: Cough, X Herm nupur mg-200 mg/5 00 14 day, # mL oral 120 mL, 0 liquid Refill(s), Pharmacy: [facility], 162.56, cm, 06/13/22 14:35:00 CDT, Height, 80.057, kg, 06/13/22 14:35:00 CDT, Weight benzonatate 2021-0 Yes 200 mg = 1 Memoria 200 mg oral 7-29 cap, PO, l capsule 16:27: TID, do Tomas 00 not crush or chew, X 10 day, # 30 cap, 0 Refill(s), Pharmacy: [facility], 162.56, cm, 06/13/22 14:35:00 CDT, Height, 80.057, kg, 06/13/22 14:35:00 CDT, Weight bumetanide 2021-0 Yes 1 mg = 1 Mem oria 1 mg oral 7-29 tab, PO, l tablet 16:27: BID, # 60 Harish n 00 tab, 1 Refill(s), Pharmacy: [facility], 162.56, cm, 06/13/22 14:35:00 CDT, Height, 80.057, kg, 06/13/22 14:35:00 CDT, Weight dextrometho 2021-0 Yes 10 mL, PO, Memoria rphan-guaiF 7-29 Q6H, PRN l ENesin 10 16:27: Cough, X Herm nupur mg-200 mg/5 00 14 day, # mL oral 120 mL, 0 liquid Refill(s), Pharmacy: [facility], 162.56, cm, 06/13/22 14:35:00 CDT, Height, 80.057, kg, 06/13/22 14:35:00 CDT, Weight benzonatate 2021-0 Yes 200 mg = 1 Memoria 200 mg oral 7-29 cap, PO, l capsule 16:27: TID, do Tomas 00 not crush or chew, X 10 day, # 30 cap, 0 Refill(s), Pharmacy: [facility], 162.56, cm, 06/13/22 14:35:00 CDT, Height, 80.057, kg, 06/13/22 14:35:00 CDT, Weight bumetanide 2021-0 Yes 1 mg = 1 Mem oria 1 mg oral 7-29 tab, PO, l tablet 16:27: BID, # 60 Harish n 00 tab, 1 Refill(s), Pharmacy: [facility], 162.56, cm, 06/13/22 14:35:00 CDT, Height, 80.057, kg, 06/13/22 14:35:00 CDT, Weight dextrometho 2021-0 Yes 10 mL, PO, Memoria rphan-guaiF 7-29 Q6H, PRN l ENesin 10 16:27: Cough, X Herm nupur mg-200 mg/5 00 14 day, # mL oral 120 mL, 0 liquid Refill(s), Pharmacy: [facility], 162.56, cm, 06/13/22 14:35:00 CDT, Height, 80.057, kg, 06/13/22 14:35:00 CDT, Weight benzonatate 2021-0 Yes 200 mg = 1 Memoria 200 mg oral 7-29 cap, PO, l capsule 16:27: TID, do Blythe 00 not crush or chew, X 10 day, # 30 cap, 0 Refill(s), Pharmacy: [facility], 162.56, cm, 06/13/22 14:35:00 CDT, Height, 80.057, kg, 06/13/22 14:35:00 CDT, Weight bumetanide 2021-0 Yes 1 mg = 1 Mem oria 1 mg oral 7-29 tab, PO, l tablet 16:27: BID, # 60 Harish n 00 tab, 1 Refill(s), Pharmacy: [facility], 162.56, cm, 06/13/22 14:35:00 CDT, Height, 80.057, kg, 06/13/22 14:35:00 CDT, Weight dextrometho 2021-0 Yes 10 mL, PO, Memoria rphan-guaiF 7-29 Q6H, PRN l ENesin 10 16:27: Cough, X Herm nupur mg-200 mg/5 00 14 day, # mL oral 120 mL, 0 liquid Refill(s), Pharmacy: [facility], 162.56, cm, 06/13/22 14:35:00 CDT, Height, 80.057, kg, 06/13/22 14:35:00 CDT, Weight benzonatate 2021-0 Yes 200 mg = 1 Memoria 200 mg oral 7-29 cap, PO, l capsule 16:27: TID, do Blythe 00 not crush or chew, X 10 day, # 30 cap, 0 Refill(s), Pharmacy: [facility], 162.56, cm, 06/13/22 14:35:00 CDT, Height, 80.057, kg, 06/13/22 14:35:00 CDT, Weight bumetanide 2021-0 Yes 1 mg = 1 Mem oria 1 mg oral 7-29 tab, PO, l tablet 16:27: BID, # 60 Harish n 00 tab, 1 Refill(s), Pharmacy: [facility], 162.56, cm, 06/13/22 14:35:00 CDT, Height, 80.057, kg, 06/13/22 14:35:00 CDT, Weight dextrometho 2021-0 Yes 10 mL, PO, Memoria rphan-guaiF 7-29 Q6H, PRN l ENesin 10 16:27: Cough, X Herm nupur mg-200 mg/5 00 14 day, # mL oral 120 mL, 0 liquid Refill(s), Pharmacy: [facility], 162.56, cm, 06/13/22 14:35:00 CDT, Height, 80.057, kg, 06/13/22 14:35:00 CDT, Weight benzonatate 2021-0 Yes 200 mg = 1 Memoria 200 mg oral 7-29 cap, PO, l capsule 16:27: TID, do Blythe 00 not crush or chew, X 10 day, # 30 cap, 0 Refill(s), Pharmacy: [facility], 162.56, cm, 06/13/22 14:35:00 CDT, Height, 80.057, kg, 06/13/22 14:35:00 CDT, Weight bumetanide 2021-0 Yes 1 mg = 1 Mem oria 1 mg oral 7-29 tab, PO, l tablet 16:27: BID, # 60 Harish n 00 tab, 1 Refill(s), Pharmacy: [facility], 162.56, cm, 06/13/22 14:35:00 CDT, Height, 80.057, kg, 06/13/22 14:35:00 CDT, Weight dextrometho 2021-0 Yes 10 mL, PO, Memoria rphan-guaiF 7-29 Q6H, PRN l ENesin 10 16:27: Cough, X Herm nupur mg-200 mg/5 00 14 day, # mL oral 120 mL, 0 liquid Refill(s), Pharmacy: [facility], 162.56, cm, 06/13/22 14:35:00 CDT, Height, 80.057, kg, 06/13/22 14:35:00 CDT, Weight benzonatate 2021-0 Yes 200 mg = 1 Memoria 200 mg oral 7-29 cap, PO, l capsule 16:27: TID, do Tomas 00 not crush or chew, X 10 day, # 30 cap, 0 Refill(s), Pharmacy: [facility], 162.56, cm, 06/13/22 14:35:00 CDT, Height, 80.057, kg, 06/13/22 14:35:00 CDT, Weight bumetanide 2021-0 Yes 1 mg = 1 Mem oria 1 mg oral 7-29 tab, PO, l tablet 16:27: BID, # 60 Harish n 00 tab, 1 Refill(s), Pharmacy: [facility], 162.56, cm, 06/13/22 14:35:00 CDT, Height, 80.057, kg, 06/13/22 14:35:00 CDT, Weight dextrometho 2021-0 Yes 10 mL, PO, Memoria rphan-guaiF 7-29 Q6H, PRN l ENesin 10 16:27: Cough, X Herm nupur mg-200 mg/5 00 14 day, # mL oral 120 mL, 0 liquid Refill(s), Pharmacy: [facility], 162.56, cm, 06/13/22 14:35:00 CDT, Height, 80.057, kg, 06/13/22 14:35:00 CDT, Weight benzonatate 2021-0 Yes 200 mg = 1 Memoria 200 mg oral 7-29 cap, PO, l capsule 16:27: TID, do Tomas 00 not crush or chew, X 10 day, # 30 cap, 0 Refill(s), Pharmacy: [facility], 162.56, cm, 06/13/22 14:35:00 CDT, Height, 80.057, kg, 06/13/22 14:35:00 CDT, Weight bumetanide 0 Yes 1 mg = 1 Mem oria 1 mg oral 7-29 tab, PO, l tablet 16:27: BID, # 60 Harish n 00 tab, 1 Refill(s), Pharmacy: [facility], 162.56, cm, 06/13/22 14:35:00 CDT, Height, 80.057, kg, 06/13/22 14:35:00 CDT, Weight dextrometho 2021-0 Yes 10 mL, PO, Memoria rphan-guaiF 7-29 Q6H, PRN l ENesin 10 16:27: Cough, X Herm nupur mg-200 mg/5 00 14 day, # mL oral 120 mL, 0 liquid Refill(s), Pharmacy: [facility], 162.56, cm, 06/13/22 14:35:00 CDT, Height, 80.057, kg, 06/13/22 14:35:00 CDT, Weight benzonatate 2021-0 Yes 200 mg = 1 Memoria 200 mg oral 7-29 cap, PO, l capsule 16:27: TID, do Tomas 00 not crush or chew, X 10 day, # 30 cap, 0 Refill(s), Pharmacy: [facility], 162.56, cm, 06/13/22 14:35:00 CDT, Height, 80.057, kg, 06/13/22 14:35:00 CDT, Weight bumetanide 2021-0 Yes 1 mg = 1 Mem oria 1 mg oral 7-29 tab, PO, l tablet 16:27: BID, # 60 Harish n 00 tab, 1 Refill(s), Pharmacy: [facility], 162.56, cm, 06/13/22 14:35:00 CDT, Height, 80.057, kg, 06/13/22 14:35:00 CDT, Weight dextrometho 2021-0 Yes 10 mL, PO, Memoria rphan-guaiF 7-29 Q6H, PRN l ENesin 10 16:27: Cough, X Herm nupur mg-200 mg/5 00 14 day, # mL oral 120 mL, 0 liquid Refill(s), Pharmacy: [facility], 162.56, cm, 06/13/22 14:35:00 CDT, Height, 80.057, kg, 06/13/22 14:35:00 CDT, Weight benzonatate 2021-0 Yes 200 mg = 1 Memoria 200 mg oral 7-29 cap, PO, l capsule 16:27: TID, do Blythe 00 not crush or chew, X 10 day, # 30 cap, 0 Refill(s), Pharmacy: [facility], 162.56, cm, 06/13/22 14:35:00 CDT, Height, 80.057, kg, 06/13/22 14:35:00 CDT, Weight bumetanide 2021-0 Yes 1 mg = 1 Mem oria 1 mg oral 7-29 tab, PO, l tablet 16:27: BID, # 60 Harish n 00 tab, 1 Refill(s), Pharmacy: [facility], 162.56, cm, 06/13/22 14:35:00 CDT, Height, 80.057, kg, 06/13/22 14:35:00 CDT, Weight dextrometho 2021-0 Yes 10 mL, PO, Memoria rphan-guaiF 7-29 Q6H, PRN l ENesin 10 16:27: Cough, X Herm nupur mg-200 mg/5 00 14 day, # mL oral 120 mL, 0 liquid Refill(s), Pharmacy: [facility], 162.56, cm, 06/13/22 14:35:00 CDT, Height, 80.057, kg, 06/13/22 14:35:00 CDT, Weight benzonatate 2021-0 Yes 200 mg = 1 Memoria 200 mg oral 7-29 cap, PO, l capsule 16:27: TID, do Blythe 00 not crush or chew, X 10 day, # 30 cap, 0 Refill(s), Pharmacy: [facility], 162.56, cm, 06/13/22 14:35:00 CDT, Height, 80.057, kg, 06/13/22 14:35:00 CDT, Weight bumetanide 2021-0 Yes 1 mg = 1 Mem oria 1 mg oral 7-29 tab, PO, l tablet 16:27: BID, # 60 Harish n 00 tab, 1 Refill(s), Pharmacy: [facility], 162.56, cm, 06/13/22 14:35:00 CDT, Height, 80.057, kg, 06/13/22 14:35:00 CDT, Weight dextrometho 2021-0 Yes 10 mL, PO, Memoria rphan-guaiF 7-29 Q6H, PRN l ENesin 10 16:27: Cough, X Herm nupur mg-200 mg/5 00 14 day, # mL oral 120 mL, 0 liquid Refill(s), Pharmacy: [facility], 162.56, cm, 06/13/22 14:35:00 CDT, Height, 80.057, kg, 06/13/22 14:35:00 CDT, Weight benzonatate 2021-0 Yes 200 mg = 1 Memoria 200 mg oral 7-29 cap, PO, l capsule 16:27: TID, do Blythe 00 not crush or chew, X 10 day, # 30 cap, 0 Refill(s), Pharmacy: [facility], 162.56, cm, 06/13/22 14:35:00 CDT, Height, 80.057, kg, 06/13/22 14:35:00 CDT, Weight bumetanide 2021-0 Yes 1 mg = 1 Mem oria 1 mg oral 7-29 tab, PO, l tablet 16:27: BID, # 60 Harish n 00 tab, 1 Refill(s), Pharmacy: [facility], 162.56, cm, 06/13/22 14:35:00 CDT, Height, 80.057, kg, 06/13/22 14:35:00 CDT, Weight dextrometho 2021-0 Yes 10 mL, PO, Memoria rphan-guaiF 7-29 Q6H, PRN l ENesin 10 16:27: Cough, X Herm nupur mg-200 mg/5 00 14 day, # mL oral 120 mL, 0 liquid Refill(s), Pharmacy: [facility], 162.56, cm, 06/13/22 14:35:00 CDT, Height, 80.057, kg, 06/13/22 14:35:00 CDT, Weight benzonatate 2021-0 Yes 200 mg = 1 Memoria 200 mg oral 7-29 cap, PO, l capsule 16:27: TID, do Blythe 00 not crush or chew, X 10 day, # 30 cap, 0 Refill(s), Pharmacy: [facility], 162.56, cm, 06/13/22 14:35:00 CDT, Height, 80.057, kg, 06/13/22 14:35:00 CDT, Weight bumetanide 2021-0 Yes 1 mg = 1 Mem oria 1 mg oral 7-29 tab, PO, l tablet 16:27: BID, # 60 Harish n 00 tab, 1 Refill(s), Pharmacy: [facility], 162.56, cm, 06/13/22 14:35:00 CDT, Height, 80.057, kg, 06/13/22 14:35:00 CDT, Weight dextrometho 2021-0 Yes 10 mL, PO, Memoria rphan-guaiF 7-29 Q6H, PRN l ENesin 10 16:27: Cough, X Herm nupur mg-200 mg/5 00 14 day, # mL oral 120 mL, 0 liquid Refill(s), Pharmacy: [facility], 162.56, cm, 06/13/22 14:35:00 CDT, Height, 80.057, kg, 06/13/22 14:35:00 CDT, Weight benzonatate 2021-0 Yes 200 mg = 1 Memoria 200 mg oral 7-29 cap, PO, l capsule 16:27: TID, do Tomas 00 not crush or chew, X 10 day, # 30 cap, 0 Refill(s), Pharmacy: [facility], 162.56, cm, 06/13/22 14:35:00 CDT, Height, 80.057, kg, 06/13/22 14:35:00 CDT, Weight bumetanide 2021-0 Yes 1 mg = 1 Mem oria 1 mg oral 7-29 tab, PO, l tablet 16:27: BID, # 60 Harish n 00 tab, 1 Refill(s), Pharmacy: [facility], 162.56, cm, 06/13/22 14:35:00 CDT, Height, 80.057, kg, 06/13/22 14:35:00 CDT, Weight dextrometho 2021-0 Yes 10 mL, PO, Memoria rphan-guaiF 7-29 Q6H, PRN l ENesin 10 16:27: Cough, X Herm nupur mg-200 mg/5 00 14 day, # mL oral 120 mL, 0 liquid Refill(s), Pharmacy: [facility], 162.56, cm, 06/13/22 14:35:00 CDT, Height, 80.057, kg, 06/13/22 14:35:00 CDT, Weight benzonatate 2021-0 Yes 200 mg = 1 Memoria 200 mg oral 7-29 cap, PO, l capsule 16:27: TID, do Tomas 00 not crush or chew, X 10 day, # 30 cap, 0 Refill(s), Pharmacy: [facility], 162.56, cm, 06/13/22 14:35:00 CDT, Height, 80.057, kg, 06/13/22 14:35:00 CDT, Weight bumetanide 2021-0 Yes 1 mg = 1 Mem oria 1 mg oral 7-29 tab, PO, l tablet 16:27: BID, # 60 Harish n 00 tab, 1 Refill(s), Pharmacy: [facility], 162.56, cm, 06/13/22 14:35:00 CDT, Height, 80.057, kg, 06/13/22 14:35:00 CDT, Weight dextrometho 2021-0 Yes 10 mL, PO, Memoria rphan-guaiF 7-29 Q6H, PRN l ENesin 10 16:27: Cough, X Herm nupur mg-200 mg/5 00 14 day, # mL oral 120 mL, 0 liquid Refill(s), Pharmacy: [facility], 162.56, cm, 06/13/22 14:35:00 CDT, Height, 80.057, kg, 06/13/22 14:35:00 CDT, Weight benzonatate 2021-0 Yes 200 mg = 1 Memoria 200 mg oral 7-29 cap, PO, l capsule 16:27: TID, do Blythe 00 not crush or chew, X 10 day, # 30 cap, 0 Refill(s), Pharmacy: [facility], 162.56, cm, 06/13/22 14:35:00 CDT, Height, 80.057, kg, 06/13/22 14:35:00 CDT, Weight bumetanide 2021-0 Yes 1 mg = 1 Mem oria 1 mg oral 7-29 tab, PO, l tablet 16:27: BID, # 60 Harish n 00 tab, 1 Refill(s), Pharmacy: [facility], 162.56, cm, 06/13/22 14:35:00 CDT, Height, 80.057, kg, 06/13/22 14:35:00 CDT, Weight dextrometho 2021-0 Yes 10 mL, PO, Memoria rphan-guaiF 7-29 Q6H, PRN l ENesin 10 16:27: Cough, X Herm nupur mg-200 mg/5 00 14 day, # mL oral 120 mL, 0 liquid Refill(s), Pharmacy: [facility], 162.56, cm, 06/13/22 14:35:00 CDT, Height, 80.057, kg, 06/13/22 14:35:00 CDT, Weight benzonatate 2021-0 Yes 200 mg = 1 Memoria 200 mg oral 7-29 cap, PO, l capsule 16:27: TID, do Tomas 00 not crush or chew, X 10 day, # 30 cap, 0 Refill(s), Pharmacy: [facility] [place], 162.56, cm, 06/13/22 14:35:00 CDT, Height, 80.057, kg, 06/13/22 14:35:00 CDT, Weight bumetanide 2021-0 Yes 1 mg = 1 Mem oria 1 mg oral 7-29 tab, PO, l tablet 16:27: BID, # 60 Harish n 00 tab, 1 Refill(s), Pharmacy: [facility] [place], 162.56, cm, 06/13/22 14:35:00 CDT, Height, 80.057, kg, 06/13/22 14:35:00 CDT, Weight dextrometho 0 Yes 10 mL, PO, Memoria rphan-guaiF 7-29 Q6H, PRN l ENesin 10 16:27: Cough, X Herm nupur mg-200 mg/5 00 14 day, # mL oral 120 mL, 0 liquid Refill(s), Pharmacy: [facility], 162.56, cm, 06/13/22 14:35:00 CDT, Height, 80.057, kg, 06/13/22 14:35:00 CDT, Weight benzonatate 2021-0 Yes 200 mg = 1 Memoria 200 mg oral 7-29 cap, PO, l capsule 16:27: TID, do Blythe 00 not crush or chew, X 10 day, # 30 cap, 0 Refill(s), Pharmacy: [facility], 162.56, cm, 06/13/22 14:35:00 CDT, Height, 80.057, kg, 06/13/22 14:35:00 CDT, Weight bumetanide 2021-0 Yes 1 mg = 1 Mem oria 1 mg oral 7-29 tab, PO, l tablet 16:27: BID, # 60 Harish n 00 tab, 1 Refill(s), Pharmacy: [facility], 162.56, cm, 06/13/22 14:35:00 CDT, Height, 80.057, kg, 06/13/22 14:35:00 CDT, Weight dextrometho 2021-0 Yes 10 mL, PO, Memoria rphan-guaiF 7-29 Q6H, PRN l ENesin 10 16:27: Cough, X Herm nupur mg-200 mg/5 00 14 day, # mL oral 120 mL, 0 liquid Refill(s), Pharmacy: [facility], 162.56, cm, 06/13/22 14:35:00 CDT, Height, 80.057, kg, 06/13/22 14:35:00 CDT, Weight benzonatate 2021-0 Yes 200 mg = 1 Memoria 200 mg oral 7-29 cap, PO, l capsule 16:27: TID, do Tomas 00 not crush or chew, X 10 day, # 30 cap, 0 Refill(s), Pharmacy: [facility], 162.56, cm, 06/13/22 14:35:00 CDT, Height, 80.057, kg, 06/13/22 14:35:00 CDT, Weight bumetanide 2021-0 Yes 1 mg = 1 Mem oria 1 mg oral 7-29 tab, PO, l tablet 16:27: BID, # 60 Harish n 00 tab, 1 Refill(s), Pharmacy: [facility], 162.56, cm, 06/13/22 14:35:00 CDT, Height, 80.057, kg, 06/13/22 14:35:00 CDT, Weight dextrometho 2021-0 Yes 10 mL, PO, Memoria rphan-guaiF 7-29 Q6H, PRN l ENesin 10 16:27: Cough, X Herm nupur mg-200 mg/5 00 14 day, # mL oral 120 mL, 0 liquid Refill(s), Pharmacy: [facility], 162.56, cm, 06/13/22 14:35:00 CDT, Height, 80.057, kg, 06/13/22 14:35:00 CDT, Weight benzonatate 2021-0 Yes 200 mg = 1 Memoria 200 mg oral 7-29 cap, PO, l capsule 16:27: TID, do Blythe 00 not crush or chew, X 10 day, # 30 cap, 0 Refill(s), Pharmacy: [facility], 162.56, cm, 06/13/22 14:35:00 CDT, Height, 80.057, kg, 06/13/22 14:35:00 CDT, Weight bumetanide 2021-0 Yes 1 mg = 1 Mem oria 1 mg oral 7-29 tab, PO, l tablet 16:27: BID, # 60 Harish n 00 tab, 1 Refill(s), Pharmacy: [facility], 162.56, cm, 06/13/22 14:35:00 CDT, Height, 80.057, kg, 06/13/22 14:35:00 CDT, Weight dextrometho 2021-0 Yes 10 mL, PO, Memoria rphan-guaiF 7-29 Q6H, PRN l ENesin 10 16:27: Cough, X Herm nupur mg-200 mg/5 00 14 day, # mL oral 120 mL, 0 liquid Refill(s), Pharmacy: [facility], 162.56, cm, 06/13/22 14:35:00 CDT, Height, 80.057, kg, 06/13/22 14:35:00 CDT, Weight benzonatate 2021-0 Yes 200 mg = 1 Memoria 200 mg oral 7-29 cap, PO, l capsule 16:27: TID, do Tomas 00 not crush or chew, X 10 day, # 30 cap, 0 Refill(s), Pharmacy: [facility], 162.56, cm, 06/13/22 14:35:00 CDT, Height, 80.057, kg, 06/13/22 14:35:00 CDT, Weight bumetanide 2021-0 Yes 1 mg = 1 Mem oria 1 mg oral 7-29 tab, PO, l tablet 16:27: BID, # 60 Harish n 00 tab, 1 Refill(s), Pharmacy: [facility], 162.56, cm, 06/13/22 14:35:00 CDT, Height, 80.057, kg, 06/13/22 14:35:00 CDT, Weight dextrometho 2-0 Yes 10 mL, PO, Memoria rphan-guaiF 7-29 Q6H, PRN l ENesin 10 16:27: Cough, X Herm nupur mg-200 mg/5 00 14 day, # mL oral 120 mL, 0 liquid Refill(s), Pharmacy: [facility], 162.56, cm, 06/13/22 14:35:00 CDT, Height, 80.057, kg, 06/13/22 14:35:00 CDT, Weight benzonatate 2021-0 Yes 200 mg = 1 Memoria 200 mg oral 7-29 cap, PO, l capsule 16:27: TID, do Blythe 00 not crush or chew, X 10 day, # 30 cap, 0 Refill(s), Pharmacy: [facility], 162.56, cm, 06/13/22 14:35:00 CDT, Height, 80.057, kg, 06/13/22 14:35:00 CDT, Weight bumetanide 2021-0 Yes 1 mg = 1 Mem oria 1 mg oral 7-29 tab, PO, l tablet 16:27: BID, # 60 Harish n 00 tab, 1 Refill(s), Pharmacy: [facility], 162.56, cm, 06/13/22 14:35:00 CDT, Height, 80.057, kg, 06/13/22 14:35:00 CDT, Weight dextrometho 2021-0 Yes 10 mL, PO, Memoria rphan-guaiF 7-29 Q6H, PRN l ENesin 10 16:27: Cough, X Herm nupur mg-200 mg/5 00 14 day, # mL oral 120 mL, 0 liquid Refill(s), Pharmacy: [facility], 162.56, cm, 06/13/22 14:35:00 CDT, Height, 80.057, kg, 06/13/22 14:35:00 CDT, Weight benzonatate 2021-0 Yes 200 mg = 1 Memoria 200 mg oral 7-29 cap, PO, l capsule 16:27: TID, do Blythe 00 not crush or chew, X 10 day, # 30 cap, 0 Refill(s), Pharmacy: [facility], 162.56, cm, 06/13/22 14:35:00 CDT, Height, 80.057, kg, 06/13/22 14:35:00 CDT, Weight bumetanide 2021-0 Yes 1 mg = 1 Mem oria 1 mg oral 7-29 tab, PO, l tablet 16:27: BID, # 60 Harish n 00 tab, 1 Refill(s), Pharmacy: [facility], 162.56, cm, 06/13/22 14:35:00 CDT, Height, 80.057, kg, 06/13/22 14:35:00 CDT, Weight dextrometho 2021-0 Yes 10 mL, PO, Memoria rphan-guaiF 7-29 Q6H, PRN l ENesin 10 16:27: Cough, X Herm nupur mg-200 mg/5 00 14 day, # mL oral 120 mL, 0 liquid Refill(s), Pharmacy: [facility], 162.56, cm, 06/13/22 14:35:00 CDT, Height, 80.057, kg, 06/13/22 14:35:00 CDT, Weight benzonatate 2021-0 Yes 200 mg = 1 Memoria 200 mg oral 7-29 cap, PO, l capsule 16:27: TID, do Blythe 00 not crush or chew, X 10 day, # 30 cap, 0 Refill(s), Pharmacy: [facility], 162.56, cm, 06/13/22 14:35:00 CDT, Height, 80.057, kg, 06/13/22 14:35:00 CDT, Weight bumetanide 2021-0 Yes 1 mg = 1 Mem oria 1 mg oral 7-29 tab, PO, l tablet 16:27: BID, # 60 Harish n 00 tab, 1 Refill(s), Pharmacy: [facility], 162.56, cm, 06/13/22 14:35:00 CDT, Height, 80.057, kg, 06/13/22 14:35:00 CDT, Weight dextrometho 2021-0 Yes 10 mL, PO, Memoria rphan-guaiF 7-29 Q6H, PRN l ENesin 10 16:27: Cough, X Herm nupur mg-200 mg/5 00 14 day, # mL oral 120 mL, 0 liquid Refill(s), Pharmacy: [facility], 162.56, cm, 06/13/22 14:35:00 CDT, Height, 80.057, kg, 06/13/22 14:35:00 CDT, Weight benzonatate 2021-0 Yes 200 mg = 1 Memoria 200 mg oral 7-29 cap, PO, l capsule 16:27: TID, do Tomas 00 not crush or chew, X 10 day, # 30 cap, 0 Refill(s), Pharmacy: [facility], 162.56, cm, 06/13/22 14:35:00 CDT, Height, 80.057, kg, 06/13/22 14:35:00 CDT, Weight bumetanide 2021-0 Yes 1 mg = 1 Mem oria 1 mg oral 7-29 tab, PO, l tablet 16:27: BID, # 60 Harish n 00 tab, 1 Refill(s), Pharmacy: [facility], 162.56, cm, 06/13/22 14:35:00 CDT, Height, 80.057, kg, 06/13/22 14:35:00 CDT, Weight dextrometho 2021-0 Yes 10 mL, PO, Memoria rphan-guaiF 7-29 Q6H, PRN l ENesin 10 16:27: Cough, X Herm nupur mg-200 mg/5 00 14 day, # mL oral 120 mL, 0 liquid Refill(s), Pharmacy: [facility], 162.56, cm, 06/13/22 14:35:00 CDT, Height, 80.057, kg, 06/13/22 14:35:00 CDT, Weight benzonatate 2021-0 Yes 200 mg = 1 Memoria 200 mg oral 7-29 cap, PO, l capsule 16:27: TID, do Tomas 00 not crush or chew, X 10 day, # 30 cap, 0 Refill(s), Pharmacy: [facility], 162.56, cm, 06/13/22 14:35:00 CDT, Height, 80.057, kg, 06/13/22 14:35:00 CDT, Weight bumetanide 2021-0 Yes 1 mg = 1 Mem oria 1 mg oral 7-29 tab, PO, l tablet 16:27: BID, # 60 Harish n 00 tab, 1 Refill(s), Pharmacy: [facility], 162.56, cm, 06/13/22 14:35:00 CDT, Height, 80.057, kg, 06/13/22 14:35:00 CDT, Weight dextrometho 2021-0 Yes 10 mL, PO, Memoria rphan-guaiF 7-29 Q6H, PRN l ENesin 10 16:27: Cough, X Herm nupur mg-200 mg/5 00 14 day, # mL oral 120 mL, 0 liquid Refill(s), Pharmacy: [facility], 162.56, cm, 06/13/22 14:35:00 CDT, Height, 80.057, kg, 06/13/22 14:35:00 CDT, Weight benzonatate 2021-0 Yes 200 mg = 1 Memoria 200 mg oral 7-29 cap, PO, l capsule 16:27: TID, do Tomas 00 not crush or chew, X 10 day, # 30 cap, 0 Refill(s), Pharmacy: [facility], 162.56, cm, 06/13/22 14:35:00 CDT, Height, 80.057, kg, 06/13/22 14:35:00 CDT, Weight bumetanide 2021-0 Yes 1 mg = 1 Mem oria 1 mg oral 7-29 tab, PO, l tablet 16:27: BID, # 60 Harish n 00 tab, 1 Refill(s), Pharmacy: [facility], 162.56, cm, 06/13/22 14:35:00 CDT, Height, 80.057, kg, 06/13/22 14:35:00 CDT, Weight dextrometho 2021-0 Yes 10 mL, PO, Memoria rphan-guaiF 7-29 Q6H, PRN l ENesin 10 16:27: Cough, X Herm nupur mg-200 mg/5 00 14 day, # mL oral 120 mL, 0 liquid Refill(s), Pharmacy: [facility], 162.56, cm, 06/13/22 14:35:00 CDT, Height, 80.057, kg, 06/13/22 14:35:00 CDT, Weight benzonatate 2021-0 Yes 200 mg = 1 Memoria 200 mg oral 7-29 cap, PO, l capsule 16:27: TID, do Tomas 00 not crush or chew, X 10 day, # 30 cap, 0 Refill(s), Pharmacy: [facility], 162.56, cm, 06/13/22 14:35:00 CDT, Height, 80.057, kg, 06/13/22 14:35:00 CDT, Weight bumetanide 0 Yes 1 mg = 1 Mem oria 1 mg oral 7-29 tab, PO, l tablet 16:27: BID, # 60 Harish n 00 tab, 1 Refill(s), Pharmacy: [facility], 162.56, cm, 06/13/22 14:35:00 CDT, Height, 80.057, kg, 06/13/22 14:35:00 CDT, Weight dextrometho 2021-0 Yes 10 mL, PO, Memoria rphan-guaiF 7-29 Q6H, PRN l ENesin 10 16:27: Cough, X Herm nupur mg-200 mg/5 00 14 day, # mL oral 120 mL, 0 liquid Refill(s), Pharmacy: [facility], 162.56, cm, 06/13/22 14:35:00 CDT, Height, 80.057, kg, 06/13/22 14:35:00 CDT, Weight benzonatate 2021-0 Yes 200 mg = 1 Memoria 200 mg oral 7-29 cap, PO, l capsule 16:27: TID, do Blythe 00 not crush or chew, X 10 day, # 30 cap, 0 Refill(s), Pharmacy: [facility], 162.56, cm, 06/13/22 14:35:00 CDT, Height, 80.057, kg, 06/13/22 14:35:00 CDT, Weight bumetanide 2021-0 Yes 1 mg = 1 Mem oria 1 mg oral 7-29 tab, PO, l tablet 16:27: BID, # 60 Harish n 00 tab, 1 Refill(s), Pharmacy: [facility], 162.56, cm, 06/13/22 14:35:00 CDT, Height, 80.057, kg, 06/13/22 14:35:00 CDT, Weight dextrometho 2021-0 Yes 10 mL, PO, Memoria rphan-guaiF 7-29 Q6H, PRN l ENesin 10 16:27: Cough, X Herm nupur mg-200 mg/5 00 14 day, # mL oral 120 mL, 0 liquid Refill(s), Pharmacy: [facility], 162.56, cm, 06/13/22 14:35:00 CDT, Height, 80.057, kg, 06/13/22 14:35:00 CDT, Weight benzonatate 2021-0 Yes 200 mg = 1 Memoria 200 mg oral 7-29 cap, PO, l capsule 16:27: TID, do Tomas 00 not crush or chew, X 10 day, # 30 cap, 0 Refill(s), Pharmacy: [facility], 162.56, cm, 06/13/22 14:35:00 CDT, Height, 80.057, kg, 06/13/22 14:35:00 CDT, Weight bumetanide 2021-0 Yes 1 mg = 1 Mem oria 1 mg oral 7-29 tab, PO, l tablet 16:27: BID, # 60 Harish n 00 tab, 1 Refill(s), Pharmacy: [facility], 162.56, cm, 06/13/22 14:35:00 CDT, Height, 80.057, kg, 06/13/22 14:35:00 CDT, Weight dextrometho 2021-0 Yes 10 mL, PO, Memoria rphan-guaiF 7-29 Q6H, PRN l ENesin 10 16:27: Cough, X Herm nupur mg-200 mg/5 00 14 day, # mL oral 120 mL, 0 liquid Refill(s), Pharmacy: [facility], 162.56, cm, 06/13/22 14:35:00 CDT, Height, 80.057, kg, 06/13/22 14:35:00 CDT, Weight benzonatate 2021-0 Yes 200 mg = 1 Memoria 200 mg oral 7-29 cap, PO, l capsule 16:27: TID, do Tomas 00 not crush or chew, X 10 day, # 30 cap, 0 Refill(s), Pharmacy: [facility], 162.56, cm, 06/13/22 14:35:00 CDT, Height, 80.057, kg, 06/13/22 14:35:00 CDT, Weight bumetanide 2021-0 Yes 1 mg = 1 Mem oria 1 mg oral 7-29 tab, PO, l tablet 16:27: BID, # 60 Harish n 00 tab, 1 Refill(s), Pharmacy: [facility], 162.56, cm, 06/13/22 14:35:00 CDT, Height, 80.057, kg, 06/13/22 14:35:00 CDT, Weight dextrometho 2021-0 Yes 10 mL, PO, Memoria rphan-guaiF 7-29 Q6H, PRN l ENesin 10 16:27: Cough, X Herm nupur mg-200 mg/5 00 14 day, # mL oral 120 mL, 0 liquid Refill(s), Pharmacy: [facility], 162.56, cm, 06/13/22 14:35:00 CDT, Height, 80.057, kg, 06/13/22 14:35:00 CDT, Weight benzonatate 2021-0 Yes 200 mg = 1 Memoria 200 mg oral 7-29 cap, PO, l capsule 16:27: TID, do Blythe 00 not crush or chew, X 10 day, # 30 cap, 0 Refill(s), Pharmacy: [facility], 162.56, cm, 06/13/22 14:35:00 CDT, Height, 80.057, kg, 06/13/22 14:35:00 CDT, Weight bumetanide 2021-0 Yes 1 mg = 1 Mem oria 1 mg oral 7-29 tab, PO, l tablet 16:27: BID, # 60 Harish n 00 tab, 1 Refill(s), Pharmacy: [facility], 162.56, cm, 06/13/22 14:35:00 CDT, Height, 80.057, kg, 06/13/22 14:35:00 CDT, Weight dextrometho 2021-0 Yes 10 mL, PO, Memoria rphan-guaiF 7-29 Q6H, PRN l ENesin 10 16:27: Cough, X Herm nupur mg-200 mg/5 00 14 day, # mL oral 120 mL, 0 liquid Refill(s), Pharmacy: [facility], 162.56, cm, 06/13/22 14:35:00 CDT, Height, 80.057, kg, 06/13/22 14:35:00 CDT, Weight benzonatate 2021-0 Yes 200 mg = 1 Memoria 200 mg oral 7-29 cap, PO, l capsule 16:27: TID, do Blythe 00 not crush or chew, X 10 day, # 30 cap, 0 Refill(s), Pharmacy: [facility], 162.56, cm, 06/13/22 14:35:00 CDT, Height, 80.057, kg, 06/13/22 14:35:00 CDT, Weight bumetanide 2021-0 Yes 1 mg = 1 Mem oria 1 mg oral 7-29 tab, PO, l tablet 16:27: BID, # 60 Harish n 00 tab, 1 Refill(s), Pharmacy: [facility], 162.56, cm, 06/13/22 14:35:00 CDT, Height, 80.057, kg, 06/13/22 14:35:00 CDT, Weight dextrometho 2021-0 Yes 10 mL, PO, Memoria rphan-guaiF 7-29 Q6H, PRN l ENesin 10 16:27: Cough, X Herm nupur mg-200 mg/5 00 14 day, # mL oral 120 mL, 0 liquid Refill(s), Pharmacy: [facility], 162.56, cm, 06/13/22 14:35:00 CDT, Height, 80.057, kg, 06/13/22 14:35:00 CDT, Weight benzonatate 2021-0 Yes 200 mg = 1 Memoria 200 mg oral 7-29 cap, PO, l capsule 16:27: TID, do Tomas 00 not crush or chew, X 10 day, # 30 cap, 0 Refill(s), Pharmacy: [facility], 162.56, cm, 06/13/22 14:35:00 CDT, Height, 80.057, kg, 06/13/22 14:35:00 CDT, Weight bumetanide 0 Yes 1 mg = 1 Mem oria 1 mg oral 7-29 tab, PO, l tablet 16:27: BID, # 60 Harish n 00 tab, 1 Refill(s), Pharmacy: [facility], 162.56, cm, 06/13/22 14:35:00 CDT, Height, 80.057, kg, 06/13/22 14:35:00 CDT, Weight dextrometho 2021-0 Yes 10 mL, PO, Memoria rphan-guaiF 7-29 Q6H, PRN l ENesin 10 16:27: Cough, X Herm nupur mg-200 mg/5 00 14 day, # mL oral 120 mL, 0 liquid Refill(s), Pharmacy: [facility], 162.56, cm, 06/13/22 14:35:00 CDT, Height, 80.057, kg, 06/13/22 14:35:00 CDT, Weight albuterol-i 2021-0 Yes 3 mL, NEB, Memoria pratropium 7-29 RQ4H, # l 2.5-0.5 mg 16:26: 540 mL, 0 He rmann inhalation 00 Refill(s), solution Pharmacy: [facility], 162.56, cm, 06/13/22 14:35:00 CDT, Height, 80.057, kg, 06/13/22 14:35:00 CDT, Weight aspirin 81 2021-0 Yes 81 mg = 1 Me moria mg tablet, 7-29 tab, PO, l enteric 16:26: Daily, # Harish n coated 00 90 tab, 0 Refill(s), Pharmacy: [facility], 162.56, cm, 06/13/22 14:35:00 CDT, Height, 80.057, kg, 06/13/22 14:35:00 CDT, Weight albuterol-i 2-0 Yes 3 mL, NEB, Memoria pratropium 7-29 RQ4H, # l 2.5-0.5 mg 16:26: 540 mL, 0 He rmann inhalation 00 Refill(s), solution Pharmacy: [facility], 162.56, cm, 06/13/22 14:35:00 CDT, Height, 80.057, kg, 06/13/22 14:35:00 CDT, Weight aspirin 81 2021-0 Yes 81 mg = 1 Me moria mg tablet, 7-29 tab, PO, l enteric 16:26: Daily, # Harish n coated 00 90 tab, 0 Refill(s), Pharmacy: [facility], 162.56, cm, 06/13/22 14:35:00 CDT, Height, 80.057, kg, 06/13/22 14:35:00 CDT, Weight albuterol-i 2-0 Yes 3 mL, NEB, Memoria pratropium 7-29 RQ4H, # l 2.5-0.5 mg 16:26: 540 mL, 0 He rmann inhalation 00 Refill(s), solution Pharmacy: [facility], 162.56, cm, 06/13/22 14:35:00 CDT, Height, 80.057, kg, 06/13/22 14:35:00 CDT, Weight aspirin 81 2021-0 Yes 81 mg = 1 Me moria mg tablet, 7-29 tab, PO, l enteric 16:26: Daily, # Harish n coated 00 90 tab, 0 Refill(s), Pharmacy: [facility], 162.56, cm, 06/13/22 14:35:00 CDT, Height, 80.057, kg, 06/13/22 14:35:00 CDT, Weight albuterol-i 2022-0 Yes 3 mL, NEB, Memoria pratropium 7-29 RQ4H, # l 2.5-0.5 mg 16:26: 540 mL, 0 He rmann inhalation 00 Refill(s), solution Pharmacy: [facility], 162.56, cm, 06/13/22 14:35:00 CDT, Height, 80.057, kg, 06/13/22 14:35:00 CDT, Weight aspirin 81 2022-0 Yes 81 mg = 1 Me moria mg tablet, 7-29 tab, PO, l enteric 16:26: Daily, # Harish n coated 00 90 tab, 0 Refill(s), Pharmacy: [facility], 162.56, cm, 06/13/22 14:35:00 CDT, Height, 80.057, kg, 06/13/22 14:35:00 CDT, Weight albuterol-i 2021-0 Yes 3 mL, NEB, Memoria pratropium 7-29 RQ4H, # l 2.5-0.5 mg 16:26: 540 mL, 0 He rmann inhalation 00 Refill(s), solution Pharmacy: [facility], 162.56, cm, 06/13/22 14:35:00 CDT, Height, 80.057, kg, 06/13/22 14:35:00 CDT, Weight aspirin 81 2022-0 Yes 81 mg = 1 Me moria mg tablet, 7-29 tab, PO, l enteric 16:26: Daily, # Harish n coated 00 90 tab, 0 Refill(s), Pharmacy: [facility], 162.56, cm, 06/13/22 14:35:00 CDT, Height, 80.057, kg, 06/13/22 14:35:00 CDT, Weight albuterol-i 2022-0 Yes 3 mL, NEB, Memoria pratropium 7-29 RQ4H, # l 2.5-0.5 mg 16:26: 540 mL, 0 He rmann inhalation 00 Refill(s), solution Pharmacy: [facility], 162.56, cm, 06/13/22 14:35:00 CDT, Height, 80.057, kg, 06/13/22 14:35:00 CDT, Weight aspirin 81 2021-0 Yes 81 mg = 1 Me moria mg tablet, 7-29 tab, PO, l enteric 16:26: Daily, # Harish n coated 00 90 tab, 0 Refill(s), Pharmacy: [facility], 162.56, cm, 06/13/22 14:35:00 CDT, Height, 80.057, kg, 06/13/22 14:35:00 CDT, Weight albuterol-i 2021-0 Yes 3 mL, NEB, Memoria pratropium 7-29 RQ4H, # l 2.5-0.5 mg 16:26: 540 mL, 0 He rmann inhalation 00 Refill(s), solution Pharmacy: [facility], 162.56, cm, 06/13/22 14:35:00 CDT, Height, 80.057, kg, 06/13/22 14:35:00 CDT, Weight aspirin 81 2021-0 Yes 81 mg = 1 Me moria mg tablet, 7-29 tab, PO, l enteric 16:26: Daily, # Harish n coated 00 90 tab, 0 Refill(s), Pharmacy: [facility], 162.56, cm, 06/13/22 14:35:00 CDT, Height, 80.057, kg, 06/13/22 14:35:00 CDT, Weight albuterol-i 2021-0 Yes 3 mL, NEB, Memoria pratropium 7-29 RQ4H, # l 2.5-0.5 mg 16:26: 540 mL, 0 He rmann inhalation 00 Refill(s), solution Pharmacy: [facility], 162.56, cm, 06/13/22 14:35:00 CDT, Height, 80.057, kg, 06/13/22 14:35:00 CDT, Weight aspirin 81 2-0 Yes 81 mg = 1 Me moria mg tablet, 7-29 tab, PO, l enteric 16:26: Daily, # Harish n coated 00 90 tab, 0 Refill(s), Pharmacy: [facility], 162.56, cm, 06/13/22 14:35:00 CDT, Height, 80.057, kg, 06/13/22 14:35:00 CDT, Weight albuterol-i 2-0 Yes 3 mL, NEB, Memoria pratropium 7-29 RQ4H, # l 2.5-0.5 mg 16:26: 540 mL, 0 He rmann inhalation 00 Refill(s), solution Pharmacy: [facility], 162.56, cm, 06/13/22 14:35:00 CDT, Height, 80.057, kg, 06/13/22 14:35:00 CDT, Weight aspirin 81 2021-0 Yes 81 mg = 1 Me moria mg tablet, 7-29 tab, PO, l enteric 16:26: Daily, # Harish n coated 00 90 tab, 0 Refill(s), Pharmacy: [facility], 162.56, cm, 06/13/22 14:35:00 CDT, Height, 80.057, kg, 06/13/22 14:35:00 CDT, Weight albuterol-i 2021-0 Yes 3 mL, NEB, Memoria pratropium 7-29 RQ4H, # l 2.5-0.5 mg 16:26: 540 mL, 0 He rmann inhalation 00 Refill(s), solution Pharmacy: [facility], 162.56, cm, 06/13/22 14:35:00 CDT, Height, 80.057, kg, 06/13/22 14:35:00 CDT, Weight aspirin 81 2021-0 Yes 81 mg = 1 Me moria mg tablet, 7-29 tab, PO, l enteric 16:26: Daily, # Harish n coated 00 90 tab, 0 Refill(s), Pharmacy: [facility], 162.56, cm, 06/13/22 14:35:00 CDT, Height, 80.057, kg, 06/13/22 14:35:00 CDT, Weight albuterol-i 2-0 Yes 3 mL, NEB, Memoria pratropium 7-29 RQ4H, # l 2.5-0.5 mg 16:26: 540 mL, 0 He rmann inhalation 00 Refill(s), solution Pharmacy: [facility], 162.56, cm, 06/13/22 14:35:00 CDT, Height, 80.057, kg, 06/13/22 14:35:00 CDT, Weight aspirin 81 2022-0 Yes 81 mg = 1 Me moria mg tablet, 7-29 tab, PO, l enteric 16:26: Daily, # Harish n coated 00 90 tab, 0 Refill(s), Pharmacy: [facility], 162.56, cm, 06/13/22 14:35:00 CDT, Height, 80.057, kg, 06/13/22 14:35:00 CDT, Weight albuterol-i 2-0 Yes 3 mL, NEB, Memoria pratropium 7-29 RQ4H, # l 2.5-0.5 mg 16:26: 540 mL, 0 He rmann inhalation 00 Refill(s), solution Pharmacy: [facility], 162.56, cm, 06/13/22 14:35:00 CDT, Height, 80.057, kg, 06/13/22 14:35:00 CDT, Weight aspirin 81 2-0 Yes 81 mg = 1 Me moria mg tablet, 7-29 tab, PO, l enteric 16:26: Daily, # Harish n coated 00 90 tab, 0 Refill(s), Pharmacy: [facility], 162.56, cm, 06/13/22 14:35:00 CDT, Height, 80.057, kg, 06/13/22 14:35:00 CDT, Weight albuterol-i 2022-0 Yes 3 mL, NEB, Memoria pratropium 7-29 RQ4H, # l 2.5-0.5 mg 16:26: 540 mL, 0 He rmann inhalation 00 Refill(s), solution Pharmacy: [facility], 162.56, cm, 06/13/22 14:35:00 CDT, Height, 80.057, kg, 06/13/22 14:35:00 CDT, Weight aspirin 81 2022-0 Yes 81 mg = 1 Me moria mg tablet, 7-29 tab, PO, l enteric 16:26: Daily, # Harish n coated 00 90 tab, 0 Refill(s), Pharmacy: [facility], 162.56, cm, 06/13/22 14:35:00 CDT, Height, 80.057, kg, 06/13/22 14:35:00 CDT, Weight albuterol-i 2022-0 Yes 3 mL, NEB, Memoria pratropium 7-29 RQ4H, # l 2.5-0.5 mg 16:26: 540 mL, 0 He rmann inhalation 00 Refill(s), solution Pharmacy: [facility], 162.56, cm, 06/13/22 14:35:00 CDT, Height, 80.057, kg, 06/13/22 14:35:00 CDT, Weight aspirin 81 2022-0 Yes 81 mg = 1 Me moria mg tablet, 7-29 tab, PO, l enteric 16:26: Daily, # Harish n coated 00 90 tab, 0 Refill(s), Pharmacy: [facility], 162.56, cm, 06/13/22 14:35:00 CDT, Height, 80.057, kg, 06/13/22 14:35:00 CDT, Weight albuterol-i 2022-0 Yes 3 mL, NEB, Memoria pratropium 7-29 RQ4H, # l 2.5-0.5 mg 16:26: 540 mL, 0 He rmann inhalation 00 Refill(s), solution Pharmacy: [facility], 162.56, cm, 06/13/22 14:35:00 CDT, Height, 80.057, kg, 06/13/22 14:35:00 CDT, Weight aspirin 81 2-0 Yes 81 mg = 1 Me moria mg tablet, 7-29 tab, PO, l enteric 16:26: Daily, # Harish n coated 00 90 tab, 0 Refill(s), Pharmacy: [facility], 162.56, cm, 06/13/22 14:35:00 CDT, Height, 80.057, kg, 06/13/22 14:35:00 CDT, Weight albuterol-i 2022-0 Yes 3 mL, NEB, Memoria pratropium 7-29 RQ4H, # l 2.5-0.5 mg 16:26: 540 mL, 0 He rmann inhalation 00 Refill(s), solution Pharmacy: [facility], 162.56, cm, 06/13/22 14:35:00 CDT, Height, 80.057, kg, 06/13/22 14:35:00 CDT, Weight aspirin 81 2022-0 Yes 81 mg = 1 Me moria mg tablet, 7-29 tab, PO, l enteric 16:26: Daily, # Harish n coated 00 90 tab, 0 Refill(s), Pharmacy: [facility], 162.56, cm, 06/13/22 14:35:00 CDT, Height, 80.057, kg, 06/13/22 14:35:00 CDT, Weight albuterol-i 2021-0 Yes 3 mL, NEB, Memoria pratropium 7-29 RQ4H, # l 2.5-0.5 mg 16:26: 540 mL, 0 He rmann inhalation 00 Refill(s), solution Pharmacy: [facility], 162.56, cm, 06/13/22 14:35:00 CDT, Height, 80.057, kg, 06/13/22 14:35:00 CDT, Weight aspirin 81 2022-0 Yes 81 mg = 1 Me moria mg tablet, 7-29 tab, PO, l enteric 16:26: Daily, # Harish n coated 00 90 tab, 0 Refill(s), Pharmacy: [facility], 162.56, cm, 06/13/22 14:35:00 CDT, Height, 80.057, kg, 06/13/22 14:35:00 CDT, Weight albuterol-i 2022-0 Yes 3 mL, NEB, Memoria pratropium 7-29 RQ4H, # l 2.5-0.5 mg 16:26: 540 mL, 0 He rmann inhalation 00 Refill(s), solution Pharmacy: [facility], 162.56, cm, 06/13/22 14:35:00 CDT, Height, 80.057, kg, 06/13/22 14:35:00 CDT, Weight aspirin 81 2022-0 Yes 81 mg = 1 Me moria mg tablet, 7-29 tab, PO, l enteric 16:26: Daily, # Harish n coated 00 90 tab, 0 Refill(s), Pharmacy: [facility], 162.56, cm, 06/13/22 14:35:00 CDT, Height, 80.057, kg, 06/13/22 14:35:00 CDT, Weight albuterol-i 2021-0 Yes 3 mL, NEB, Memoria pratropium 7-29 RQ4H, # l 2.5-0.5 mg 16:26: 540 mL, 0 He rmann inhalation 00 Refill(s), solution Pharmacy: [facility], 162.56, cm, 06/13/22 14:35:00 CDT, Height, 80.057, kg, 06/13/22 14:35:00 CDT, Weight aspirin 81 2021-0 Yes 81 mg = 1 Me moria mg tablet, 7-29 tab, PO, l enteric 16:26: Daily, # Harish n coated 00 90 tab, 0 Refill(s), Pharmacy: [facility], 162.56, cm, 06/13/22 14:35:00 CDT, Height, 80.057, kg, 06/13/22 14:35:00 CDT, Weight albuterol-i 2021-0 Yes 3 mL, NEB, Memoria pratropium 7-29 RQ4H, # l 2.5-0.5 mg 16:26: 540 mL, 0 He rmann inhalation 00 Refill(s), solution Pharmacy: [facility], 162.56, cm, 06/13/22 14:35:00 CDT, Height, 80.057, kg, 06/13/22 14:35:00 CDT, Weight aspirin 81 2021-0 Yes 81 mg = 1 Me moria mg tablet, 7-29 tab, PO, l enteric 16:26: Daily, # Harish n coated 00 90 tab, 0 Refill(s), Pharmacy: [facility], 162.56, cm, 06/13/22 14:35:00 CDT, Height, 80.057, kg, 06/13/22 14:35:00 CDT, Weight albuterol-i 2022-0 Yes 3 mL, NEB, Memoria pratropium 7-29 RQ4H, # l 2.5-0.5 mg 16:26: 540 mL, 0 He rmann inhalation 00 Refill(s), solution Pharmacy: [facility], 162.56, cm, 06/13/22 14:35:00 CDT, Height, 80.057, kg, 06/13/22 14:35:00 CDT, Weight aspirin 81 2022-0 Yes 81 mg = 1 Me moria mg tablet, 7-29 tab, PO, l enteric 16:26: Daily, # Harish n coated 00 90 tab, 0 Refill(s), Pharmacy: [facility], 162.56, cm, 06/13/22 14:35:00 CDT, Height, 80.057, kg, 06/13/22 14:35:00 CDT, Weight albuterol-i 2-0 Yes 3 mL, NEB, Memoria pratropium 7-29 RQ4H, # l 2.5-0.5 mg 16:26: 540 mL, 0 He rmann inhalation 00 Refill(s), solution Pharmacy: [facility], 162.56, cm, 06/13/22 14:35:00 CDT, Height, 80.057, kg, 06/13/22 14:35:00 CDT, Weight aspirin 81 2022-0 Yes 81 mg = 1 Me moria mg tablet, 7-29 tab, PO, l enteric 16:26: Daily, # Harish n coated 00 90 tab, 0 Refill(s), Pharmacy: [facility], 162.56, cm, 06/13/22 14:35:00 CDT, Height, 80.057, kg, 06/13/22 14:35:00 CDT, Weight albuterol-i 2022-0 Yes 3 mL, NEB, Memoria pratropium 7-29 RQ4H, # l 2.5-0.5 mg 16:26: 540 mL, 0 He rmann inhalation 00 Refill(s), solution Pharmacy: [facility], 162.56, cm, 06/13/22 14:35:00 CDT, Height, 80.057, kg, 06/13/22 14:35:00 CDT, Weight aspirin 81 2021-0 Yes 81 mg = 1 Me moria mg tablet, 7-29 tab, PO, l enteric 16:26: Daily, # Harish n coated 00 90 tab, 0 Refill(s), Pharmacy: [facility], 162.56, cm, 06/13/22 14:35:00 CDT, Height, 80.057, kg, 06/13/22 14:35:00 CDT, Weight albuterol-i 2021-0 Yes 3 mL, NEB, Memoria pratropium 7-29 RQ4H, # l 2.5-0.5 mg 16:26: 540 mL, 0 He rmann inhalation 00 Refill(s), solution Pharmacy: [facility], 162.56, cm, 06/13/22 14:35:00 CDT, Height, 80.057, kg, 06/13/22 14:35:00 CDT, Weight aspirin 81 2021-0 Yes 81 mg = 1 Me moria mg tablet, 7-29 tab, PO, l enteric 16:26: Daily, # Harish n coated 00 90 tab, 0 Refill(s), Pharmacy: [facility], 162.56, cm, 06/13/22 14:35:00 CDT, Height, 80.057, kg, 06/13/22 14:35:00 CDT, Weight albuterol-i 2021-0 Yes 3 mL, NEB, Memoria pratropium 7-29 RQ4H, # l 2.5-0.5 mg 16:26: 540 mL, 0 He rmann inhalation 00 Refill(s), solution Pharmacy: [facility], 162.56, cm, 06/13/22 14:35:00 CDT, Height, 80.057, kg, 06/13/22 14:35:00 CDT, Weight aspirin 81 2-0 Yes 81 mg = 1 Me moria mg tablet, 7-29 tab, PO, l enteric 16:26: Daily, # Harish n coated 00 90 tab, 0 Refill(s), Pharmacy: [facility], 162.56, cm, 06/13/22 14:35:00 CDT, Height, 80.057, kg, 06/13/22 14:35:00 CDT, Weight albuterol-i 2-0 Yes 3 mL, NEB, Memoria pratropium 7-29 RQ4H, # l 2.5-0.5 mg 16:26: 540 mL, 0 He rmann inhalation 00 Refill(s), solution Pharmacy: [facility], 162.56, cm, 06/13/22 14:35:00 CDT, Height, 80.057, kg, 06/13/22 14:35:00 CDT, Weight aspirin 81 2-0 Yes 81 mg = 1 Me moria mg tablet, 7-29 tab, PO, l enteric 16:26: Daily, # Harish n coated 00 90 tab, 0 Refill(s), Pharmacy: [facility], 162.56, cm, 06/13/22 14:35:00 CDT, Height, 80.057, kg, 06/13/22 14:35:00 CDT, Weight albuterol-i 2021-0 Yes 3 mL, NEB, Memoria pratropium 7-29 RQ4H, # l 2.5-0.5 mg 16:26: 540 mL, 0 He rmann inhalation 00 Refill(s), solution Pharmacy: [facility], 162.56, cm, 06/13/22 14:35:00 CDT, Height, 80.057, kg, 06/13/22 14:35:00 CDT, Weight aspirin 81 2021-0 Yes 81 mg = 1 Me moria mg tablet, 7-29 tab, PO, l enteric 16:26: Daily, # Harish n coated 00 90 tab, 0 Refill(s), Pharmacy: [facility], 162.56, cm, 06/13/22 14:35:00 CDT, Height, 80.057, kg, 06/13/22 14:35:00 CDT, Weight albuterol-i 2-0 Yes 3 mL, NEB, Memoria pratropium 7-29 RQ4H, # l 2.5-0.5 mg 16:26: 540 mL, 0 He rmann inhalation 00 Refill(s), solution Pharmacy: [facility], 162.56, cm, 06/13/22 14:35:00 CDT, Height, 80.057, kg, 06/13/22 14:35:00 CDT, Weight aspirin 81 2022-0 Yes 81 mg = 1 Me moria mg tablet, 7-29 tab, PO, l enteric 16:26: Daily, # Harish n coated 00 90 tab, 0 Refill(s), Pharmacy: [facility], 162.56, cm, 06/13/22 14:35:00 CDT, Height, 80.057, kg, 06/13/22 14:35:00 CDT, Weight albuterol-i 2-0 Yes 3 mL, NEB, Memoria pratropium 7-29 RQ4H, # l 2.5-0.5 mg 16:26: 540 mL, 0 He rmann inhalation 00 Refill(s), solution Pharmacy: [facility], 162.56, cm, 06/13/22 14:35:00 CDT, Height, 80.057, kg, 06/13/22 14:35:00 CDT, Weight aspirin 81 2021-0 Yes 81 mg = 1 Me moria mg tablet, 7-29 tab, PO, l enteric 16:26: Daily, # Harish n coated 00 90 tab, 0 Refill(s), Pharmacy: [facility], 162.56, cm, 06/13/22 14:35:00 CDT, Height, 80.057, kg, 06/13/22 14:35:00 CDT, Weight albuterol-i 2-0 Yes 3 mL, NEB, Memoria pratropium 7-29 RQ4H, # l 2.5-0.5 mg 16:26: 540 mL, 0 He rmann inhalation 00 Refill(s), solution Pharmacy: [facility], 162.56, cm, 06/13/22 14:35:00 CDT, Height, 80.057, kg, 06/13/22 14:35:00 CDT, Weight aspirin 81 2022-0 Yes 81 mg = 1 Me moria mg tablet, 7-29 tab, PO, l enteric 16:26: Daily, # Harish n coated 00 90 tab, 0 Refill(s), Pharmacy: [facility], 162.56, cm, 06/13/22 14:35:00 CDT, Height, 80.057, kg, 06/13/22 14:35:00 CDT, Weight albuterol-i 2022-0 Yes 3 mL, NEB, Memoria pratropium 7-29 RQ4H, # l 2.5-0.5 mg 16:26: 540 mL, 0 He rmann inhalation 00 Refill(s), solution Pharmacy: [facility], 162.56, cm, 06/13/22 14:35:00 CDT, Height, 80.057, kg, 06/13/22 14:35:00 CDT, Weight aspirin 81 2022-0 Yes 81 mg = 1 Me moria mg tablet, 7-29 tab, PO, l enteric 16:26: Daily, # Harish n coated 00 90 tab, 0 Refill(s), Pharmacy: [facility], 162.56, cm, 06/13/22 14:35:00 CDT, Height, 80.057, kg, 06/13/22 14:35:00 CDT, Weight albuterol-i 2022-0 Yes 3 mL, NEB, Memoria pratropium 7-29 RQ4H, # l 2.5-0.5 mg 16:26: 540 mL, 0 He rmann inhalation 00 Refill(s), solution Pharmacy: [facility], 162.56, cm, 06/13/22 14:35:00 CDT, Height, 80.057, kg, 06/13/22 14:35:00 CDT, Weight aspirin 81 2022-0 Yes 81 mg = 1 Me moria mg tablet, 7-29 tab, PO, l enteric 16:26: Daily, # Harish n coated 00 90 tab, 0 Refill(s), Pharmacy: [facility], 162.56, cm, 06/13/22 14:35:00 CDT, Height, 80.057, kg, 06/13/22 14:35:00 CDT, Weight albuterol-i 2022-0 Yes 3 mL, NEB, Memoria pratropium 7-29 RQ4H, # l 2.5-0.5 mg 16:26: 540 mL, 0 He rmann inhalation 00 Refill(s), solution Pharmacy: [facility], 162.56, cm, 06/13/22 14:35:00 CDT, Height, 80.057, kg, 06/13/22 14:35:00 CDT, Weight aspirin 81 202-0 Yes 81 mg = 1 Me moria mg tablet, 7-29 tab, PO, l enteric 16:26: Daily, # Harish n coated 00 90 tab, 0 Refill(s), Pharmacy: [facility], 162.56, cm, 06/13/22 14:35:00 CDT, Height, 80.057, kg, 06/13/22 14:35:00 CDT, Weight albuterol-i 2021-0 Yes 3 mL, NEB, Memoria pratropium 7-29 RQ4H, # l 2.5-0.5 mg 16:26: 540 mL, 0 He rmann inhalation 00 Refill(s), solution Pharmacy: [facility], 162.56, cm, 06/13/22 14:35:00 CDT, Height, 80.057, kg, 06/13/22 14:35:00 CDT, Weight aspirin 81 2021-0 Yes 81 mg = 1 Me moria mg tablet, 7-29 tab, PO, l enteric 16:26: Daily, # Harish n coated 00 90 tab, 0 Refill(s), Pharmacy: [facility], 162.56, cm, 06/13/22 14:35:00 CDT, Height, 80.057, kg, 06/13/22 14:35:00 CDT, Weight albuterol-i 2021-0 Yes 3 mL, NEB, Memoria pratropium 7-29 RQ4H, # l 2.5-0.5 mg 16:26: 540 mL, 0 He rmann inhalation 00 Refill(s), solution Pharmacy: [facility], 162.56, cm, 06/13/22 14:35:00 CDT, Height, 80.057, kg, 06/13/22 14:35:00 CDT, Weight aspirin 81 2022-0 Yes 81 mg = 1 Me moria mg tablet, 7-29 tab, PO, l enteric 16:26: Daily, # Harish n coated 00 90 tab, 0 Refill(s), Pharmacy: [facility], 162.56, cm, 06/13/22 14:35:00 CDT, Height, 80.057, kg, 06/13/22 14:35:00 CDT, Weight albuterol-i 2021-0 Yes 3 mL, NEB, Memoria pratropium 7-29 RQ4H, # l 2.5-0.5 mg 16:26: 540 mL, 0 He rmann inhalation 00 Refill(s), solution Pharmacy: [facility], 162.56, cm, 06/13/22 14:35:00 CDT, Height, 80.057, kg, 06/13/22 14:35:00 CDT, Weight aspirin 81 2021-0 Yes 81 mg = 1 Me moria mg tablet, 7-29 tab, PO, l enteric 16:26: Daily, # Harish n coated 00 90 tab, 0 Refill(s), Pharmacy: [facility], 162.56, cm, 06/13/22 14:35:00 CDT, Height, 80.057, kg, 06/13/22 14:35:00 CDT, Weight albuterol-i 2021-0 Yes 3 mL, NEB, Memoria pratropium 7-29 RQ4H, # l 2.5-0.5 mg 16:26: 540 mL, 0 He rmann inhalation 00 Refill(s), solution Pharmacy: [facility], 162.56, cm, 06/13/22 14:35:00 CDT, Height, 80.057, kg, 06/13/22 14:35:00 CDT, Weight aspirin 81 2021-0 Yes 81 mg = 1 Me moria mg tablet, 7-29 tab, PO, l enteric 16:26: Daily, # Harish n coated 00 90 tab, 0 Refill(s), Pharmacy: [facility], 162.56, cm, 06/13/22 14:35:00 CDT, Height, 80.057, kg, 06/13/22 14:35:00 CDT, Weight albuterol-i 2-0 Yes 3 mL, NEB, Memoria pratropium 7-29 RQ4H, # l 2.5-0.5 mg 16:26: 540 mL, 0 He rmann inhalation 00 Refill(s), solution Pharmacy: [facility], 162.56, cm, 06/13/22 14:35:00 CDT, Height, 80.057, kg, 06/13/22 14:35:00 CDT, Weight aspirin 81 202-0 Yes 81 mg = 1 Me moria mg tablet, 7-29 tab, PO, l enteric 16:26: Daily, # Harish n coated 00 90 tab, 0 Refill(s), Pharmacy: [facility], 162.56, cm, 06/13/22 14:35:00 CDT, Height, 80.057, kg, 06/13/22 14:35:00 CDT, Weight albuterol-i 2021-0 Yes 3 mL, NEB, Memoria pratropium 7-29 RQ4H, # l 2.5-0.5 mg 16:26: 540 mL, 0 He rmann inhalation 00 Refill(s), solution Pharmacy: [facility], 162.56, cm, 06/13/22 14:35:00 CDT, Height, 80.057, kg, 06/13/22 14:35:00 CDT, Weight aspirin 81 2021-0 Yes 81 mg = 1 Me moria mg tablet, 7-29 tab, PO, l enteric 16:26: Daily, # Hairsh n coated 00 90 tab, 0 Refill(s), Pharmacy: [facility], 162.56, cm, 06/13/22 14:35:00 CDT, Height, 80.057, kg, 06/13/22 14:35:00 CDT, Weight albuterol-i 2-0 Yes 3 mL, NEB, Memoria pratropium 7-29 RQ4H, # l 2.5-0.5 mg 16:26: 540 mL, 0 He rmann inhalation 00 Refill(s), solution Pharmacy: [facility], 162.56, cm, 06/13/22 14:35:00 CDT, Height, 80.057, kg, 06/13/22 14:35:00 CDT, Weight aspirin 81 2021-0 Yes 81 mg = 1 Me moria mg tablet, 7-29 tab, PO, l enteric 16:26: Daily, # Harish n coated 00 90 tab, 0 Refill(s), Pharmacy: [facility], 162.56, cm, 06/13/22 14:35:00 CDT, Height, 80.057, kg, 06/13/22 14:35:00 CDT, Weight albuterol-i 2021-0 Yes 3 mL, NEB, Memoria pratropium 7-29 RQ4H, # l 2.5-0.5 mg 16:26: 540 mL, 0 He rmann inhalation 00 Refill(s), solution Pharmacy: [facility], 162.56, cm, 06/13/22 14:35:00 CDT, Height, 80.057, kg, 06/13/22 14:35:00 CDT, Weight aspirin 81 2021-0 Yes 81 mg = 1 Me moria mg tablet, 7-29 tab, PO, l enteric 16:26: Daily, # Harish n coated 00 90 tab, 0 Refill(s), Pharmacy: [facility], 162.56, cm, 06/13/22 14:35:00 CDT, Height, 80.057, kg, 06/13/22 14:35:00 CDT, Weight albuterol-i 2021-0 Yes 3 mL, NEB, Memoria pratropium 7-29 RQ4H, # l 2.5-0.5 mg 16:26: 540 mL, 0 He rmann inhalation 00 Refill(s), solution Pharmacy: [facility], 162.56, cm, 06/13/22 14:35:00 CDT, Height, 80.057, kg, 06/13/22 14:35:00 CDT, Weight aspirin 81 2-0 Yes 81 mg = 1 Me moria mg tablet, 7-29 tab, PO, l enteric 16:26: Daily, # Harish n coated 00 90 tab, 0 Refill(s), Pharmacy: [facility], 162.56, cm, 06/13/22 14:35:00 CDT, Height, 80.057, kg, 06/13/22 14:35:00 CDT, Weight albuterol-i 2021-0 Yes 3 mL, NEB, Memoria pratropium 7-29 RQ4H, # l 2.5-0.5 mg 16:26: 540 mL, 0 He rmann inhalation 00 Refill(s), solution Pharmacy: [facility], 162.56, cm, 06/13/22 14:35:00 CDT, Height, 80.057, kg, 06/13/22 14:35:00 CDT, Weight aspirin 81 2-0 Yes 81 mg = 1 Me moria mg tablet, 7-29 tab, PO, l enteric 16:26: Daily, # Harish n coated 00 90 tab, 0 Refill(s), Pharmacy: [facility], 162.56, cm, 06/13/22 14:35:00 CDT, Height, 80.057, kg, 06/13/22 14:35:00 CDT, Weight albuterol-i 2021-0 Yes 3 mL, NEB, Memoria pratropium 7-29 RQ4H, # l 2.5-0.5 mg 16:26: 540 mL, 0 He rmann inhalation 00 Refill(s), solution Pharmacy: [facility], 162.56, cm, 06/13/22 14:35:00 CDT, Height, 80.057, kg, 06/13/22 14:35:00 CDT, Weight aspirin 81 2021-0 Yes 81 mg = 1 Me moria mg tablet, 7-29 tab, PO, l enteric 16:26: Daily, # Harish n coated 00 90 tab, 0 Refill(s), Pharmacy: [facility], 162.56, cm, 06/13/22 14:35:00 CDT, Height, 80.057, kg, 06/13/22 14:35:00 CDT, Weight albuterol-i 2-0 Yes 3 mL, NEB, Memoria pratropium 7-29 RQ4H, # l 2.5-0.5 mg 16:26: 540 mL, 0 He rmann inhalation 00 Refill(s), solution Pharmacy: [facility], 162.56, cm, 06/13/22 14:35:00 CDT, Height, 80.057, kg, 06/13/22 14:35:00 CDT, Weight aspirin 81 2022-0 Yes 81 mg = 1 Me moria mg tablet, 7-29 tab, PO, l enteric 16:26: Daily, # Harish n coated 00 90 tab, 0 Refill(s), Pharmacy: [facility], 162.56, cm, 06/13/22 14:35:00 CDT, Height, 80.057, kg, 06/13/22 14:35:00 CDT, Weight albuterol-i 2021-0 Yes 3 mL, NEB, Memoria pratropium 7-29 RQ4H, # l 2.5-0.5 mg 16:26: 540 mL, 0 He rmann inhalation 00 Refill(s), solution Pharmacy: [facility], 162.56, cm, 06/13/22 14:35:00 CDT, Height, 80.057, kg, 06/13/22 14:35:00 CDT, Weight aspirin 81 2021-0 Yes 81 mg = 1 Me moria mg tablet, 7-29 tab, PO, l enteric 16:26: Daily, # Harish n coated 00 90 tab, 0 Refill(s), Pharmacy: [facility], 162.56, cm, 06/13/22 14:35:00 CDT, Height, 80.057, kg, 06/13/22 14:35:00 CDT, Weight albuterol-i 2021-0 Yes 3 mL, NEB, Memoria pratropium 7-29 RQ4H, # l 2.5-0.5 mg 16:26: 540 mL, 0 He rmann inhalation 00 Refill(s), solution Pharmacy: [facility], 162.56, cm, 06/13/22 14:35:00 CDT, Height, 80.057, kg, 06/13/22 14:35:00 CDT, Weight aspirin 81 2-0 Yes 81 mg = 1 Me moria mg tablet, 7-29 tab, PO, l enteric 16:26: Daily, # Harish n coated 00 90 tab, 0 Refill(s), Pharmacy: [facility], 162.56, cm, 06/13/22 14:35:00 CDT, Height, 80.057, kg, 06/13/22 14:35:00 CDT, Weight albuterol-i 2022-0 Yes 3 mL, NEB, Memoria pratropium 7-29 RQ4H, # l 2.5-0.5 mg 16:26: 540 mL, 0 He rmann inhalation 00 Refill(s), solution Pharmacy: [facility], 162.56, cm, 06/13/22 14:35:00 CDT, Height, 80.057, kg, 06/13/22 14:35:00 CDT, Weight aspirin 81 2022-0 Yes 81 mg = 1 Me moria mg tablet, 7-29 tab, PO, l enteric 16:26: Daily, # Harish n coated 00 90 tab, 0 Refill(s), Pharmacy: [facility], 162.56, cm, 06/13/22 14:35:00 CDT, Height, 80.057, kg, 06/13/22 14:35:00 CDT, Weight albuterol-i 2022-0 Yes 3 mL, NEB, Memoria pratropium 7-29 RQ4H, # l 2.5-0.5 mg 16:26: 540 mL, 0 He rmann inhalation 00 Refill(s), solution Pharmacy: [facility], 162.56, cm, 06/13/22 14:35:00 CDT, Height, 80.057, kg, 06/13/22 14:35:00 CDT, Weight aspirin 81 2022-0 Yes 81 mg = 1 Me moria mg tablet, 7-29 tab, PO, l enteric 16:26: Daily, # Harish n coated 00 90 tab, 0 Refill(s), Pharmacy: [facility], 162.56, cm, 06/13/22 14:35:00 CDT, Height, 80.057, kg, 06/13/22 14:35:00 CDT, Weight albuterol-i 2022-0 Yes 3 mL, NEB, Memoria pratropium 7-29 RQ4H, # l 2.5-0.5 mg 16:26: 540 mL, 0 He rmann inhalation 00 Refill(s), solution Pharmacy: [facility], 162.56, cm, 06/13/22 14:35:00 CDT, Height, 80.057, kg, 06/13/22 14:35:00 CDT, Weight aspirin 81 2021-0 Yes 81 mg = 1 Me moria mg tablet, 7-29 tab, PO, l enteric 16:26: Daily, # Harish n coated 00 90 tab, 0 Refill(s), Pharmacy: [facility], 162.56, cm, 06/13/22 14:35:00 CDT, Height, 80.057, kg, 06/13/22 14:35:00 CDT, Weight albuterol-i 2021-0 Yes 3 mL, NEB, Memoria pratropium 7-29 RQ4H, # l 2.5-0.5 mg 16:26: 540 mL, 0 He rmann inhalation 00 Refill(s), solution Pharmacy: [facility], 162.56, cm, 06/13/22 14:35:00 CDT, Height, 80.057, kg, 06/13/22 14:35:00 CDT, Weight aspirin 81 2021-0 Yes 81 mg = 1 Me moria mg tablet, 7-29 tab, PO, l enteric 16:26: Daily, # Harish n coated 00 90 tab, 0 Refill(s), Pharmacy: [facility], 162.56, cm, 06/13/22 14:35:00 CDT, Height, 80.057, kg, 06/13/22 14:35:00 CDT, Weight albuterol-i 2-0 Yes 3 mL, NEB, Memoria pratropium 7-29 RQ4H, # l 2.5-0.5 mg 16:26: 540 mL, 0 He rmann inhalation 00 Refill(s), solution Pharmacy: [facility], 162.56, cm, 06/13/22 14:35:00 CDT, Height, 80.057, kg, 06/13/22 14:35:00 CDT, Weight aspirin 81 Yes 81 mg = 1 Me moria mg tablet, 7-29 tab, PO, l enteric 16:26: Daily, # Harish n coated 00 90 tab, 0 Refill(s), Pharmacy: [facility], 162.56, cm, 06/13/22 14:35:00 CDT, Height, 80.057, kg, 06/13/22 14:35:00 CDT, Weight albuterol-i Yes 3 mL, NEB, Memoria pratropium 06-17 RQ4H, # l 2.5-0.5 mg 16:26: 540 mL, 0 He rmann inhalation 00 Refill(s), solution Pharmacy: [facility], 162.56, cm, 06/13/22 14:35:00 CDT, Height, 80.057, kg, 06/13/22 14:35:00 CDT, Weight aspirin 81 Yes 81 mg = 1 Me moria mg tablet, 7-29 tab, PO, l enteric 16:26: Daily, # Harish n coated 00 90 tab, 0 Refill(s), Pharmacy: [facility], 162.56, cm, 06/13/22 14:35:00 CDT, Height, 80.057, kg, 06/13/22 14:35:00 CDT, Weight magnesium No Notes: Memori a sulfate 06-17 WASTE: F/P l 14:02: - Sink; E [place] 00 - [employer] Bin potassium Yes /= 14 Memoria chloride 7-29 Russian, l 14:02: march dissolve each 20 mEq tablet in 4 oz of water. Allow about 2 minutes for the tablets to disintegra te. Stir before giving to prepare slurry and administer . Please exclude patient's with feeding tube less than 14 Russian (Dobhoff, J-tube, etc) and pediatric and patients. magnesium No Notes: Memori a sulfate 06-17 WASTE: F/P l 14:02: - Sink; E [place] 00 - [employer] Trash Bin potassium Yes /= 14 Memoria chloride 7-29 Russian, l 14:02: march dissolve each 20 mEq tablet in 4 oz of water. Allow about 2 minutes for the tablets to disintegra te. Stir before giving to prepare slurry and administer . Please exclude patient's with feeding tube less than 14 Russian (Dobhoff, J-tube, etc) and pediatric and patients. magnesium No Notes: Memori a sulfate 7-29 WASTE: F/P l 14:02: - Sink; E [place] - [employer] Bin potassium Yes /= 14 Memoria chloride 7-29 Russian, l 14:02: march Tomas 00 dissolve each 20 mEq tablet in 4 oz of water. Allow about 2 minutes for the tablets to disintegra te. Stir before giving to prepare slurry and administer . Please exclude patient's with feeding tube less than 14 Russian (Dobhoff, J-tube, etc) and pediatric and patients. magnesium No Notes: Memori a sulfate 7-29 WASTE: F/P l 14:02: - Sink; E [place] - [employer] Bin potassium Yes /= 14 Memoria chloride 7-29 Russian, l 14:02: march [place] 00 dissolve each 20 mEq tablet in 4 oz of water. Allow about 2 minutes for the tablets to disintegra te. Stir before giving to prepare slurry and administer . Please exclude patient's with feeding tube less than 14 Russian (Dobhoff, J-tube, etc) and pediatric and patients. magnesium No Notes: Memori a sulfate 7-29 WASTE: F/P l 14:02: - Sink; E [place] - [employer] Bin potassium Yes /= 14 Memoria chloride 7-29 Russian, l 14:02: march [place] 00 dissolve each 20 mEq tablet in 4 oz of water. Allow about 2 minutes for the tablets to disintegra te. Stir before giving to prepare slurry and administer . Please exclude patient's with feeding tube less than 14 Russian (Dobhoff, J-tube, etc) and pediatric and patients. magnesium No Notes: Memori a sulfate 7-29 WASTE: F/P l 14:02: - Sink; E Tomas 00 - [employer] Trash Bin potassium Yes /= 14 Memoria chloride 7-29 Russian, l 14:02: march [place] 00 dissolve each 20 mEq tablet in 4 oz of water. Allow about 2 minutes for the tablets to disintegra te. Stir before giving to prepare slurry and administer . Please exclude patient's with feeding tube less than 14 Russian (Dobhoff, J-tube, etc) and pediatric and patients. magnesium No Notes: Memori a sulfate 7-29 WASTE: F/P l 14:02: - Sink; E [place] - [employer] Bin potassium Yes /= 14 Memoria chloride 7-29 Russian, l 14:02: march [place] 00 dissolve each 20 mEq tablet in 4 oz of water. Allow about 2 minutes for the tablets to disintegra te. Stir before giving to prepare slurry and administer . Please exclude patient's with feeding tube less than 14 Russian (Dobhoff, J-tube, etc) and pediatric and patients. magnesium No Notes: Memori a sulfate 7-29 WASTE: F/P l 14:02: - Sink; E [place] - [employer] Trash Bin potassium Yes /= 14 Memoria chloride 7-29 Russian, l 14:02: march [place] 00 dissolve each 20 mEq tablet in 4 oz of water. Allow about 2 minutes for the tablets to disintegra te. Stir before giving to prepare slurry and administer . Please exclude patient's with feeding tube less than 14 Russian (Dobhoff, J-tube, etc) and pediatric and patients. magnesium No Notes: Memori a sulfate 7-29 WASTE: F/P l 14:02: - Sink; E [place] - [employer] Trash Bin potassium Yes /= 14 Memoria chloride 7-29 Russian, l 14:02: march [place] 00 dissolve each 20 mEq tablet in 4 oz of water. Allow about 2 minutes for the tablets to disintegra te. Stir before giving to prepare slurry and administer . Please exclude patient's with feeding tube less than 14 Russian (Dobhoff, J-tube, etc) and pediatric and patients. magnesium No Notes: Memori a sulfate 7-29 WASTE: F/P l 14:02: - Sink; E [place] - [employer] Bin potassium Yes /= 14 Memoria chloride 7-29 Russian, l 14:02: march Tomas 00 dissolve each 20 mEq tablet in 4 oz of water. Allow about 2 minutes for the tablets to disintegra te. Stir before giving to prepare slurry and administer . Please exclude patient's with feeding tube less than 14 Russian (Dobhoff, J-tube, etc) and pediatric and patients. magnesium No Notes: Memori a sulfate 7-29 WASTE: F/P l 14:02: - Sink; E [place] 00 - [employer] Trash Bin potassium Yes /= 14 Memoria chloride 7-29 Russian, l 14:02: march Tomas 00 dissolve each 20 mEq tablet in 4 oz of water. Allow about 2 minutes for the tablets to disintegra te. Stir before giving to prepare slurry and administer . Please exclude patient's with feeding tube less than 14 Russian (Dobhoff, J-tube, etc) and pediatric and patients. magnesium No Notes: Memori a sulfate 7-29 WASTE: F/P l 14:02: - Sink; E [place]omas - [employer] Trash Bin potassium Yes /= 14 Memoria chloride 7-29 Russian, l 14:02: march [place] 00 dissolve each 20 mEq tablet in 4 oz of water. Allow about 2 minutes for the tablets to disintegra te. Stir before giving to prepare slurry and administer . Please exclude patient's with feeding tube less than 14 Russian (Dobhoff, J-tube, etc) and pediatric and patients. magnesium No Notes: Memori a sulfate 7-29 WASTE: F/P l 14:02: - Sink; E [place] 00 - [employer] Trash Bin potassium Yes /= 14 Memoria chloride 7-29 Russian, l 14:02: march [place] dissolve each 20 mEq tablet in 4 oz of water. Allow about 2 minutes for the tablets to disintegra te. Stir before giving to prepare slurry and administer . Please exclude patient's with feeding tube less than 14 Russian (Dobhoff, J-tube, etc) and pediatric and patients. magnesium No Notes: Memori a sulfate 7-29 WASTE: F/P l 14:02: - Sink; E [place] 00 - [employer] Trash Bin potassium Yes /= 14 Memoria chloride 7-29 Russian, l 14:02: march [place] 00 dissolve each 20 mEq tablet in 4 oz of water. Allow about 2 minutes for the tablets to disintegra te. Stir before giving to prepare slurry and administer . Please exclude patient's with feeding tube less than 14 Russian (Dobhoff, J-tube, etc) and pediatric and patients. magnesium No Notes: Memori a sulfate 7-29 WASTE: F/P l 14:02: - Sink; E [place] - [employer] Bin potassium Yes /= 14 Memoria chloride 7-29 Russian, l 14:02: march [place] 00 dissolve each 20 mEq tablet in 4 oz of water. Allow about 2 minutes for the tablets to disintegra te. Stir before giving to prepare slurry and administer . Please exclude patient's with feeding tube less than 14 Russian (Dobhoff, J-tube, etc) and pediatric and patients. magnesium No Notes: Memori a sulfate 7-29 WASTE: F/P l 14:02: - Sink; E [place] - [employer] Bin potassium Yes /= 14 Memoria chloride 7-29 Russian, l 14:02: march [place] 00 dissolve each 20 mEq tablet in 4 oz of water. Allow about 2 minutes for the tablets to disintegra te. Stir before giving to prepare slurry and administer . Please exclude patient's with feeding tube less than 14 Russian (Dobhoff, J-tube, etc) and pediatric and patients. magnesium No Notes: Memori a sulfate 7-29 WASTE: F/P l 14:02: - Sink; E [place] - [employer] Bin potassium Yes /= 14 Memoria chloride 7-29 Russian, l 14:02: march Tomas 00 dissolve each 20 mEq tablet in 4 oz of water. Allow about 2 minutes for the tablets to disintegra te. Stir before giving to prepare slurry and administer . Please exclude patient's with feeding tube less than 14 Russian (Dobhoff, J-tube, etc) and pediatric and patients. magnesium No Notes: Memori a sulfate 7-29 WASTE: F/P l 14:02: - Sink; E [place] 00 - [employer] Tr[employer] Bin potassium Yes /= 14 Memoria chloride 7-29 Russian, l 14:02: march Tomas 00 dissolve each 20 mEq tablet in 4 oz of water. Allow about 2 minutes for the tablets to disintegra te. Stir before giving to prepare slurry and administer . Please exclude patient's with feeding tube less than 14 Russian (Dobhoff, J-tube, etc) and pediatric and patients. magnesium No Notes: Memori a sulfate 7-29 WASTE: F/P l 14:02: - Sink; E [place] 00 - [employer] Tr[employer] Bin potassium Yes /= 14 Memoria chloride 7-29 Russian, l 14:02: march Tomas 00 dissolve each 20 mEq tablet in 4 oz of water. Allow about 2 minutes for the tablets to disintegra te. Stir before giving to prepare slurry and administer . Please exclude patient's with feeding tube less than 14 Russian (Dobhoff, J-tube, etc) and pediatric and patients. magnesium No Notes: Memori a sulfate 7-29 WASTE: F/P l 14:02: - Sink; E [place] 00 - [employer] Bin potassium Yes /= 14 Memoria chloride 7-29 Russian, l 14:02: march [place] 00 dissolve each 20 mEq tablet in 4 oz of water. Allow about 2 minutes for the tablets to disintegra te. Stir before giving to prepare slurry and administer . Please exclude patient's with feeding tube less than 14 Russian (Dobhoff, J-tube, etc) and pediatric and patients. magnesium No Notes: Memori a sulfate 7-29 WASTE: F/P l 14:02: - Sink; E [place] - [employer] Bin potassium Yes /= 14 Memoria chloride 7-29 Russian, l 14:02: march [place] 00 dissolve each 20 mEq tablet in 4 oz of water. Allow about 2 minutes for the tablets to disintegra te. Stir before giving to prepare slurry and administer . Please exclude patient's with feeding tube less than 14 Russian (Dobhoff, J-tube, etc) and pediatric and patients. magnesium No Notes: Memori a sulfate 7-29 WASTE: F/P l 14:02: - Sink; E [place] 00 - [employer] Bin potassium Yes /= 14 Memoria chloride 7-29 Russian, l 14:02: march Tomas 00 dissolve each 20 mEq tablet in 4 oz of water. Allow about 2 minutes for the tablets to disintegra te. Stir before giving to prepare slurry and administer . Please exclude patient's with feeding tube less than 14 Russian (Dobhoff, J-tube, etc) and pediatric and patients. magnesium No Notes: Memori a sulfate 7-29 WASTE: F/P l 14:02: - Sink; E [place] 00 - [employer] Bin potassium Yes /= 14 Memoria chloride 7-29 Russian, l 14:02: march [place] 00 dissolve each 20 mEq tablet in 4 oz of water. Allow about 2 minutes for the tablets to disintegra te. Stir before giving to prepare slurry and administer . Please exclude patient's with feeding tube less than 14 Russian (Dobhoff, J-tube, etc) and pediatric and patients. magnesium No Notes: Memori a sulfate 7-29 WASTE: F/P l 14:02: - Sink; E [place] 00 - [employer] Tr[employer] Bin potassium Yes /= 14 Memoria chloride 7-29 Russian, l 14:02: march Tomas 00 dissolve each 20 mEq tablet in 4 oz of water. Allow about 2 minutes for the tablets to disintegra te. Stir before giving to prepare slurry and administer . Please exclude patient's with feeding tube less than 14 Russian (Dobhoff, J-tube, etc) and pediatric and patients. magnesium No Notes: Memori a sulfate 7-29 WASTE: F/P l 14:02: - Sink; E [place] - [employer] Bin potassium Yes /= 14 Memoria chloride 7-29 Russian, l 14:02: march [place] 00 dissolve each 20 mEq tablet in 4 oz of water. Allow about 2 minutes for the tablets to disintegra te. Stir before giving to prepare slurry and administer . Please exclude patient's with feeding tube less than 14 Russian (Dobhoff, J-tube, etc) and pediatric and patients. magnesium No Notes: Memori a sulfate 7-29 WASTE: F/P l 14:02: - Sink; E [place] 00 - [employer] Bin potassium Yes /= 14 Memoria chloride 7-29 Russian, l 14:02: march [place] 00 dissolve each 20 mEq tablet in 4 oz of water. Allow about 2 minutes for the tablets to disintegra te. Stir before giving to prepare slurry and administer . Please exclude patient's with feeding tube less than 14 Russian (Dobhoff, J-tube, etc) and pediatric and patients. magnesium No Notes: Memori a sulfate 7-29 WASTE: F/P l 14:02: - Sink; E [place] - [employer] Bin potassium Yes /= 14 Memoria chloride 7-29 Russian, l 14:02: may Tomas 00 dissolve each 20 mEq tablet in 4 oz of water. Allow about 2 minutes for the tablets to disintegra te. Stir before giving to prepare slurry and administer . Please exclude patient's with feeding tube less than 14 Russian (Dobhoff, J-tube, etc) and pediatric and patients. magnesium No Notes: Memori a sulfate 7-29 WASTE: F/P l 14:02: - Sink; E [place] 00 - [employer] Tr[employer] Bin potassium Yes /= 14 Memoria chloride 7-29 Russian, l 14:02: march Tomas 00 dissolve each 20 mEq tablet in 4 oz of water. Allow about 2 minutes for the tablets to disintegra te. Stir before giving to prepare slurry and administer . Please exclude patient's with feeding tube less than 14 Russian (Dobhoff, J-tube, etc) and pediatric and patients. magnesium No Notes: Memori a sulfate 7-29 WASTE: F/P l 14:02: - Sink; E [place] - [employer] Bin potassium Yes /= 14 Memoria chloride 7-29 Russian, l 14:02: march [place] 00 dissolve each 20 mEq tablet in 4 oz of water. Allow about 2 minutes for the tablets to disintegra te. Stir before giving to prepare slurry and administer . Please exclude patient's with feeding tube less than 14 Russian (Dobhoff, J-tube, etc) and pediatric and patients. magnesium No Notes: Memori a sulfate 7-29 WASTE: F/P l 14:02: - Sink; E [place] - [employer] Bin potassium Yes /= 14 Memoria chloride 7-29 Russian, l 14:02: march [place] 00 dissolve each 20 mEq tablet in 4 oz of water. Allow about 2 minutes for the tablets to disintegra te. Stir before giving to prepare slurry and administer . Please exclude patient's with feeding tube less than 14 Russian (Dobhoff, J-tube, etc) and pediatric and patients. magnesium No Notes: Memori a sulfate 7-29 WASTE: F/P l 14:02: - Sink; E [place] 00 - [employer] Bin potassium Yes /= 14 Memoria chloride 7-29 Russian, l 14:02: may [place] 00 dissolve each 20 mEq tablet in 4 oz of water. Allow about 2 minutes for the tablets to disintegra te. Stir before giving to prepare slurry and administer . Please exclude patient's with feeding tube less than 14 Russian (Dobhoff, J-tube, etc) and pediatric and patients. magnesium No Notes: Memori a sulfate 7-29 WASTE: F/P l 14:02: - Sink; E [place] 00 - [employer] Bin potassium Yes /= 14 Memoria chloride 7-29 Russian, l 14:02: march Tomas 00 dissolve each 20 mEq tablet in 4 oz of water. Allow about 2 minutes for the tablets to disintegra te. Stir before giving to prepare slurry and administer . Please exclude patient's with feeding tube less than 14 Russian (Dobhoff, J-tube, etc) and pediatric and patients. magnesium No Notes: Memori a sulfate 7-29 WASTE: F/P l 14:02: - Sink; E [place] 00 - [employer] Bin potassium Yes /= 14 Memoria chloride 7-29 Russian, l 14:02: march [place] 00 dissolve each 20 mEq tablet in 4 oz of water. Allow about 2 minutes for the tablets to disintegra te. Stir before giving to prepare slurry and administer . Please exclude patient's with feeding tube less than 14 Russian (Dobhoff, J-tube, etc) and pediatric and patients. magnesium No Notes: Memori a sulfate 7-29 WASTE: F/P l 14:02: - Sink; E [place] 00 - [employer] Bin potassium Yes /= 14 Memoria chloride 7-29 Russian, l 14:02: march Tomas 00 dissolve each 20 mEq tablet in 4 oz of water. Allow about 2 minutes for the tablets to disintegra te. Stir before giving to prepare slurry and administer . Please exclude patient's with feeding tube less than 14 Russian (Dobhoff, J-tube, etc) and pediatric and patients. magnesium No Notes: Memori a sulfate 7-29 WASTE: F/P l 14:02: - Sink; E [place] 00 - [employer] Bin potassium Yes /= 14 Memoria chloride 7-29 Russian, l 14:02: may Tomas 00 dissolve each 20 mEq tablet in 4 oz of water. Allow about 2 minutes for the tablets to disintegra te. Stir before giving to prepare slurry and administer . Please exclude patient's with feeding tube less than 14 Russian (Dobhoff, J-tube, etc) and pediatric and patients. magnesium No Notes: Memori a sulfate 7-29 WASTE: F/P l 14:02: - Sink; E [place] 00 - [employer] Bin potassium Yes /= 14 Memoria chloride 7-29 Russian, l 14:02: march [place] 00 dissolve each 20 mEq tablet in 4 oz of water. Allow about 2 minutes for the tablets to disintegra te. Stir before giving to prepare slurry and administer . Please exclude patient's with feeding tube less than 14 Russian (Dobhoff, J-tube, etc) and pediatric and patients. magnesium No Notes: Memori a sulfate 7-29 WASTE: F/P l 14:02: - Sink; E [place] 00 - [employer] Bin potassium Yes /= 14 Memoria chloride 7-29 Russian, l 14:02: march Tomas 00 dissolve each 20 mEq tablet in 4 oz of water. Allow about 2 minutes for the tablets to disintegra te. Stir before giving to prepare slurry and administer . Please exclude patient's with feeding tube less than 14 Russian (Dobhoff, J-tube, etc) and pediatric and patients. magnesium No Notes: Memori a sulfate 7-29 WASTE: F/P l 14:02: - Sink; E [place] 00 - [employer] Bin potassium Yes /= 14 Memoria chloride 7-29 Russian, l 14:02: may [place] 00 dissolve each 20 mEq tablet in 4 oz of water. Allow about 2 minutes for the tablets to disintegra te. Stir before giving to prepare slurry and administer . Please exclude patient's with feeding tube less than 14 Russian (Dobhoff, J-tube, etc) and pediatric and patients. magnesium No Notes: Memori a sulfate 7-29 WASTE: F/P l 14:02: - Sink; E [place] 00 - [employer] Bin potassium Yes /= 14 Memoria chloride 7-29 Russian, l 14:02: march [place] 00 dissolve each 20 mEq tablet in 4 oz of water. Allow about 2 minutes for the tablets to disintegra te. Stir before giving to prepare slurry and administer . Please exclude patient's with feeding tube less than 14 Russian (Dobhoff, J-tube, etc) and pediatric and patients. magnesium No Notes: Memori a sulfate 7-29 WASTE: F/P l 14:02: - Sink; E [place] 00 - [employer] Bin potassium Yes /= 14 Memoria chloride 7-29 Russian, l 14:02: march [place] 00 dissolve each 20 mEq tablet in 4 oz of water. Allow about 2 minutes for the tablets to disintegra te. Stir before giving to prepare slurry and administer . Please exclude patient's with feeding tube less than 14 Russian (Dobhoff, J-tube, etc) and pediatric and patients. magnesium No Notes: Memori a sulfate 7-29 WASTE: F/P l 14:02: - Sink; E [place] - [facility] potassium Yes /= 14 Memoria chloride 7-29 Russian, l 14:02: march [place] 00 dissolve each 20 mEq tablet in 4 oz of water. Allow about 2 minutes for the tablets to disintegra te. Stir before giving to prepare slurry and administer . Please exclude patient's with feeding tube less than 14 Russian (Dobhoff, J-tube, etc) and pediatric and patients. magnesium No Notes: Memori a sulfate 7-29 WASTE: F/P l 14:02: - Sink; E [place] 00 - [facility] potassium Yes /= 14 Memoria chloride 7-29 Russian, l 14:02: march [place] 00 dissolve each 20 mEq tablet in 4 oz of water. Allow about 2 minutes for the tablets to disintegra te. Stir before giving to prepare slurry and administer . Please exclude patient's with feeding tube less than 14 Russian (Dobhoff, J-tube, etc) and pediatric and patients. magnesium No Notes: Memori a sulfate 7-29 WASTE: F/P l 14:02: - Sink; E [place] - [facility] potassium Yes /= 14 Memoria chloride 7-29 Russian, l 14:02: march [place] 00 dissolve each 20 mEq tablet in 4 oz of water. Allow about 2 minutes for the tablets to disintegra te. Stir before giving to prepare slurry and administer . Please exclude patient's with feeding tube less than 14 Russian (Dobhoff, J-tube, etc) and pediatric and patients. magnesium No Notes: Memori a sulfate 7-29 WASTE: F/P l 14:02: - Sink; E [place] - [facility] potassium Yes /= 14 Memoria chloride 7-29 Russian, l 14:02: march [place] 00 dissolve each 20 mEq tablet in 4 oz of water. Allow about 2 minutes for the tablets to disintegra te. Stir before giving to prepare slurry and administer . Please exclude patient's with feeding tube less than 14 Russian (Dobhoff, J-tube, etc) and pediatric and patients. magnesium No Notes: Memori a sulfate 7-29 WASTE: F/P l 14:02: - Sink; E [place] - [facility] potassium Yes /= 14 Memoria chloride 7-29 Russian, l 14:02: march [place] 00 dissolve each 20 mEq tablet in 4 oz of water. Allow about 2 minutes for the tablets to disintegra te. Stir before giving to prepare slurry and administer . Please exclude patient's with feeding tube less than 14 Russian (Dobhoff, J-tube, etc) and pediatric and patients. magnesium No Notes: Memori a sulfate 7-29 WASTE: F/P l 14:02: - Sink; E [place] - [facility] potassium Yes /= 14 Memoria chloride 7-29 Russian, l 14:02: march [place] 00 dissolve each 20 mEq tablet in 4 oz of water. Allow about 2 minutes for the tablets to disintegra te. Stir before giving to prepare slurry and administer . Please exclude patient's with feeding tube less than 14 Russian (Dobhoff, J-tube, etc) and pediatric and patients. magnesium No Notes: Memori a sulfate 7-29 WASTE: F/P l 14:02: - Sink; E [place] 00 - [facility] potassium Yes /= 14 Memoria chloride 7-29 Russian, l 14:02: march [place] 00 dissolve each 20 mEq tablet in 4 oz of water. Allow about 2 minutes for the tablets to disintegra te. Stir before giving to prepare slurry and administer . Please exclude patient's with feeding tube less than 14 Russian (Dobhoff, J-tube, etc) and pediatric and patients. magnesium No Notes: Memori a sulfate 7-29 WASTE: F/P l 14:02: - Sink; E [place] 00 - [facility] potassium Yes /= 14 Memoria chloride 7-29 Russian, l 14:02: march [place] 00 dissolve each 20 mEq tablet in 4 oz of water. Allow about 2 minutes for the tablets to disintegra te. Stir before giving to prepare slurry and administer . Please exclude patient's with feeding tube less than 14 Russian (Dobhoff, J-tube, etc) and pediatric and patients. magnesium No Notes: Memori a sulfate 7-29 WASTE: F/P l 14:02: - Sink; E [place] 00 - [facility] potassium Yes /= 14 Memoria chloride 7-29 Russian, l 14:02: march [place] 00 dissolve each 20 mEq tablet in 4 oz of water. Allow about 2 minutes for the tablets to disintegra te. Stir before giving to prepare slurry and administer . Please exclude patient's with feeding tube less than 14 Russian (Dobhoff, J-tube, etc) and pediatric and patients. magnesium No Notes: Memori a sulfate 7-29 WASTE: F/P l 14:02: - Sink; E [place] 00 - [facility] potassium Yes /= 14 Memoria chloride 7-29 Russian, l 14:02: march [place] 00 dissolve each 20 mEq tablet in 4 oz of water. Allow about 2 minutes for the tablets to disintegra te. Stir before giving to prepare slurry and administer . Please exclude patient's with feeding tube less than 14 Russian (Dobhoff, J-tube, etc) and pediatric and patients. magnesium No Notes: Memori a sulfate 7-29 WASTE: F/P l 14:02: - Sink; - [facility] potassium Yes /= 14 Memoria chloride 7-29 Russian, l 14:02: march dissolve each 20 mEq tablet in 4 oz of water. Allow about 2 minutes for the tablets to disintegra te. Stir before giving to prepare slurry and administer . Please exclude patient's with feeding tube less than 14 Russian (Dobhoff, J-tube, etc) and pediatric and patients. magnesium No Notes: Memori a sulfate 7-29 WASTE: F/P l 14:02: - Sink; - [facility] potassium Yes /= 14 Memoria chloride 7-29 Russian, l 14:02: march dissolve each 20 mEq tablet in 4 oz of water. Allow about 2 minutes for the tablets to disintegra te. Stir before giving to prepare slurry and administer . Please exclude patient's with feeding tube less than 14 Russian (Dobhoff, J-tube, etc) and pediatric and patients. magnesium No Notes: Memori a sulfate 7-29 WASTE: F/P l 14:02: - Sink; - [facility] potassium Yes /= 14 Memoria chloride 7-29 Russian, l 14:02: march dissolve each 20 mEq tablet in 4 oz of water. Allow about 2 minutes for the tablets to disintegra te. Stir before giving to prepare slurry and administer . Please exclude patient's with feeding tube less than 14 Russian (Dobhoff, J-tube, etc) and pediatric and patients. ipratropium Yes 3 mL, NEB, [facility] -albuterol 06-17 RQ4H, # [facility] (DUO-NEB) 00:00: 540 mL, 0 of 0.5-2.5 (3) 00 Refill(s), Me dicin MG/3ML [facility]acy: [facility], 162.56, cm, 06/13/22 14:35:00 CDT, Height, 80.057, kg, 06/13/22 14:35:00 CDT, Weight Dextrometho 2022-0 Yes 10 mL, PO, [facility] rphan-guaiF - Q6H, PRN Flores ege ENesin 00:00: Cough, X of 10-200 00 14 day, # Medicin MG/5ML LIQD 120 mL, 0 e Refill(s), Pharmacy: [facility], 162.56, cm, 06/13/22 14:35:00 CDT, Height, 80.057, kg, 06/13/22 14:35:00 CDT, Weight magnesium 2021-0 Yes 400 mg = 1 Ba ylor oxide 06-17 tab, PO, [place] (MAG-OX) 00:00: Daily, X of 400 MG 30 day, # Medicin tablet 30 tab, 0 e Refill(s), Pharmacy: [facility], 162.56, cm, 06/13/22 14:35:00 CDT, Height, 80.057, kg, 06/13/22 14:35:00 CDT, Weight pantoprazol 2021-0 Yes 40mg Take 40 mg Gwyn e 06-17 by mouth [place] (PROTONIX) 00:00: daily. of 40 MG 00 Medicin tablet e ipratropium 2021-0 Yes 3 mL, NEB, [facility] -albuterol 06-17 RQ4H, # [facility] (DUO-NEB) 00:00: 540 mL, 0 of 0.5-2.5 (3) 00 Refill(s), Me dicin MG/3ML Pharmacy: e [facility], 162.56, cm, 06/13/22 14:35:00 CDT, Height, 80.057, kg, 06/13/22 14:35:00 CDT, Weight Dextrometho 2021-0 Yes 10 mL, PO, [facility] rphan-guaiF - Q6H, PRN [place] ege ENesin 00:00: Cough, X of 10-200 00 14 day, # Medicin MG/5ML LIQD 120 mL, 0 e Refill(s), Pharmacy: [facility], 162.56, cm, 06/13/22 14:35:00 CDT, Height, 80.057, kg, 06/13/22 14:35:00 CDT, Weight magnesium 2-0 Yes 400 mg = 1 Ba ylor oxide 7- tab, PO, [place] (MAG-OX) 00:00: Daily, X of 400 MG 00 30 day, # Medicin tablet 30 tab, 0 e Refill(s), Pharmacy: [facility], 162.56, cm, 06/13/22 14:35:00 CDT, Height, 80.057, kg, 06/13/22 14:35:00 CDT, Weight pantoprazol 2-0 Yes 40mg Take 40 mg Gwyn e 06-17 by mouth [place] (PROTONIX) 00:00: daily. of 40 MG 00 Medicin tablet e ipratropium 2021-0 Yes 3 mL, NEB, [facility] -albuterol 06-17 RQ4H, # [facility] (DUO-NEB) 00:00: 540 mL, 0 of 0.5-2.5 (3) 00 Refill(s), Me dicin MG/3ML Pharmacy: e [facility], 162.56, cm, 06/13/22 14:35:00 CDT, Height, 80.057, kg, 06/13/22 14:35:00 CDT, Weight Dextrometho 2021-0 Yes 10 mL, PO, [facility] rphan-guaiF 06-17 Q6H, PRN [place] e[place] ENesin 00:00: Cough, X of 10-200 00 14 day, # Medicin MG/5ML LIQD 120 mL, 0 e Refill(s), Pharmacy: [facility], 162.56, cm, 06/13/22 14:35:00 CDT, Height, 80.057, kg, 06/13/22 14:35:00 CDT, Weight magnesium 2-0 Yes 400 mg = 1 Ba ylor oxide - tab, PO, [place] (MAG-OX) 00:00: Daily, X of 400 MG 00 30 day, # Medicin tablet 30 tab, 0 e Refill(s), Pharmacy: [facility], 162.56, cm, 06/13/22 14:35:00 CDT, Height, 80.057, kg, 06/13/22 14:35:00 CDT, Weight pantoprazol 2-0 Yes 40mg Take 40 mg Gwyn e 7-29 by mouth [facility] (PROTONIX) 00:00: daily. of 40 MG 00 Medicin tablet e ipratropium 2-0 Yes 3 mL, NEB, [facility] -albuterol 7- RQ4H, # [facility] (DUO-NEB) 00:00: 540 mL, 0 of 0.5-2.5 (3) 00 Refill(s), Me dicin MG/3ML Pharmacy: e [facility] [place], 162.56, cm, 06/13/22 14:35:00 CDT, Height, 80.057, kg, 06/13/22 14:35:00 CDT, Weight Dextrometho 2021-0 Yes 10 mL, PO, [place] rphan-guaiF - Q6H, PRN [place] ege ENesin 00:00: Cough, X of 10-200 00 14 day, # Medicin MG/5ML LIQD 120 mL, 0 e Refill(s), Pharmacy: [facility] [place], 162.56, cm, 06/13/22 14:35:00 CDT, Height, 80.057, kg, 06/13/22 14:35:00 CDT, Weight magnesium 2021-0 Yes 400 mg = 1 Ba ylor oxide - tab, PO, [place] (MAG-OX) 00:00: Daily, X of 400 MG 00 30 day, # Medicin tablet 30 tab, 0 e Refill(s), Pharmacy: [facility], 162.56, cm, 06/13/22 14:35:00 CDT, Height, 80.057, kg, 06/13/22 14:35:00 CDT, Weight pantoprazol 2-0 Yes 40mg Take 40 mg Gwyn e 7-29 by mouth [employer] (PROTONIX) 00:00: daily. of 40 MG 00 Medicin tablet e ipratropium 2-0 Yes 3 mL, NEB, [facility] -albuterol 7- RQ4H, # [facility] (DUO-NEB) 00:00: 540 mL, 0 of 0.5-2.5 (3) 00 Refill(s), Me dicin MG/3ML Pharmacy: e [facility], 162.56, cm, 06/13/22 14:35:00 CDT, Height, 80.057, kg, 06/13/22 14:35:00 CDT, Weight Aspirin 81 2-0 Yes 81 mg = 1 Ba ylor MG tablet - tab, PO, Colleg [facility] 00:00: Daily, # of 00 90 tab, 0 Medicin Refill(s), e Pharmacy: [facility], 162.56, cm, 06/13/22 14:35:00 CDT, Height, 80.057, kg, 06/13/22 14:35:00 CDT, Weight Dextrometho 2021-0 Yes 10 mL, PO, [facility] rphan-guaiF 7- Q6H, PRN [place] e[place] ENesin 00:00: Cough, X of 10-200 00 14 day, # Medicin MG/5ML LIQD 120 mL, 0 e Refill(s), Pharmacy: [facility], 162.56, cm, 06/13/22 14:35:00 CDT, Height, 80.057, kg, 06/13/22 14:35:00 CDT, Weight losartan 2021-0 Yes 25mg Take 25 mg Star my[facility] (COZAAR) 25 7- by mouth Flores ege MG tablet 00:00: daily. of 00 Medicin e magnesium 2021-0 Yes 400 mg = 1 Ba ylor oxide - tab, PO, [place] (MAG-OX) 00:00: Daily, X of 400 MG 00 30 day, # Medicin tablet 30 tab, 0 e Refill(s), Pharmacy: [facility], 162.56, cm, 06/13/22 14:35:00 CDT, Height, 80.057, kg, 06/13/22 14:35:00 CDT, Weight pantoprazol 2021-0 Yes 40mg Take 40 mg [facility] e 7-29 by mouth [place] (PROTONIX) 00:00: daily. of 40 MG 00 Medicin tablet e ipratropium 2021-0 Yes 3 mL, NEB, [facility] -albuterol 7- RQ4H, # [facility] (DUO-NEB) 00:00: 540 mL, 0 of 0.5-2.5 (3) 00 Refill(s), Me dicin MG/3ML Pharmacy: e [facility] [place], 162.56, cm, 06/13/22 14:35:00 CDT, Height, 80.057, kg, 06/13/22 14:35:00 CDT, Weight Dextrometho 0 Yes 10 mL, PO, [facility] rphan-guaiF 7 Q6H, PRN [place] e[place] ENesin 00:00: Cough, X of 10-200 00 14 day, # Medicin MG/5ML LIQD 120 mL, 0 e Refill(s), Pharmacy: [facility], 162.56, cm, 06/13/22 14:35:00 CDT, Height, 80.057, kg, 06/13/22 14:35:00 CDT, Weight losartan 0 Yes 25mg Take 25 mg Star my[facility] (COZAAR) 25 06-17 by mouth [place] ege MG tablet 00:00: daily. of 00 Medicin e magnesium Yes 400 mg = 1 Ba ylor oxide 06-17 tab, PO, [place] (MAG-OX) 00:00: Daily, X of 400 MG 00 30 day, # Medicin tablet 30 tab, 0 e Refill(s), Pharmacy: [facility], 162.56, cm, 06/13/22 14:35:00 CDT, Height, 80.057, kg, 06/13/22 14:35:00 CDT, Weight pantoprazol Yes 40mg Take 40 mg Gwyn e 06-17 by mouth [place] (PROTONIX) 00:00: daily. of 40 MG 00 Medicin tablet e losartan 2021- No 25mg Take 25 mg Ba ylor (COZAAR) 25 - 11-29 by mouth Col lege MG tablet 00:00: 00:00 daily. of 00 :00 Medicin e Aspirin 81 2021- No 81 mg = 1 B aylor MG tablet 06-17 10-11 tab, PO, Colle ge 00:00: 00:00 Daily, # of 00 :00 90 tab, 0 Medicin Refill(s), e Pharmacy: [facility], 162.56, cm, 06/13/22 14:35:00 CDT, Height, [...] 7-27 not crush l 14:00: or chew. [place] (Same As: Ecotrin) aspirin No Notes: Do Memor ia 7-27 not crush l 14:00: or chew. [place]omas (Same As: Ecotrin) aspirin No Notes: Do Memor ia 7-27 not crush l 14:00: or chew. [place] (Same As: Ecotrin) aspirin No Notes: Do Memor ia 7-27 not crush l 14:00: or chew. [place] (Same As: Ecotrin) aspirin No Notes: Do Memor ia 7-27 not crush l 14:00: or chew. [place] (Same As: Ecotrin) aspirin No Notes: Do Memor ia 7-27 not crush l 14:00: or chew. [place] (Same As: Ecotrin) aspirin No Notes: Do Memor ia 7-27 not crush l 14:00: or chew. [place] 00 (Same As: Ecotrin) aspirin No Notes: Do Memor ia 7-27 not crush l 14:00: or chew. [place] 00 (Same As: Ecotrin) aspirin No Notes: Do Memor ia 7-27 not crush l 14:00: or chew. [place] (Same As: Ecotrin) aspirin No Notes: Do Memor ia 7-27 not crush l 14:00: or chew. [place] 00 (Same As: Ecotrin) aspirin No Notes: Do Memor ia 7-27 not crush l 14:00: or chew. [place] (Same As: Ecotrin) aspirin No Notes: Do Memor ia 7-27 not crush l 14:00: or chew. [place] (Same As: Ecotrin) aspirin No Notes: Do Memor ia 7-27 not crush l 14:00: or chew. [place] 00 (Same As: Ecotrin) aspirin No Notes: Do Memor ia 7-27 not crush l 14:00: or chew. [place] 00 (Same As: Ecotrin) aspirin No Notes: Do Memor ia 7-27 not crush l 14:00: or chew. [place] (Same As: Ecotrin) aspirin No Notes: Do Memor ia 7-27 not crush l 14:00: or chew. [place] (Same As: Ecotrin) aspirin No Notes: Do Memor ia 7-27 not crush l 14:00: or chew. [place] (Same As: Ecotrin) aspirin No Notes: Do Memor ia 7-27 not crush l 14:00: or chew. [place] (Same As: Ecotrin) aspirin No Notes: Do Memor ia 7-27 not crush l 14:00: or chew. [place] (Same As: Ecotrin) aspirin No Notes: Do Memor ia 7-27 not crush l 14:00: or chew. [place] (Same As: Ecotrin) aspirin No Notes: Do Memor ia 7-27 not crush l 14:00: or chew. [place] 00 (Same As: Ecotrin) aspirin No Notes: Do Memor ia 7-27 not crush l 14:00: or chew. [place] 00 (Same As: Ecotrin) aspirin No Notes: Do Memor ia 7-27 not crush l 14:00: or chew. [place] 00 (Same As: Ecotrin) aspirin No Notes: Do Memor ia 7-27 not crush l 14:00: or chew. [place] 00 (Same As: Ecotrin) aspirin No Notes: Do Memor ia 7-27 not crush l 14:00: or chew. [place] (Same As: Ecotrin) aspirin No Notes: Do Memor ia 7-27 not crush l 14:00: or chew. [place] (Same As: Ecotrin) aspirin No Notes: Do Memor ia 7-27 not crush l 14:00: or chew. [place] 00 (Same As: Ecotrin) aspirin No Notes: Do Memor ia 7-27 not crush l 14:00: or chew. [place] 00 (Same As: Ecotrin) aspirin No Notes: Do Memor ia 7-27 not crush l 14:00: or chew. [place] (Same As: Ecotrin) aspirin No Notes: Do Memor ia 7-27 not crush l 14:00: or chew. [place] 00 (Same As: Ecotrin) aspirin No Notes: Do Memor ia 7-27 not crush l 14:00: or chew. [place] (Same As: Ecotrin) aspirin No Notes: Do Memor ia 7-27 not crush l 14:00: or chew. [place] (Same As: Ecotrin) aspirin No Notes: Do Memor ia 7-27 not crush l 14:00: or chew. [place] (Same As: Ecotrin) aspirin No Notes: Do Memor ia 7-27 not crush l 14:00: or chew. [place] (Same As: Ecotrin) aspirin No Notes: Do Memor ia 7-27 not crush l 14:00: or chew. [place] (Same As: Ecotrin) aspirin No Notes: Do Memor ia 7-27 not crush l 14:00: or chew. [place] 00 (Same As: Ecotrin) aspirin No Notes: Do Memor ia 7-27 not crush l 14:00: or chew. [place] 00 (Same As: Ecotrin) aspirin No Notes: Do Memor ia 7-27 not crush l 14:00: or chew. (Same As: Ecotrin) aspirin No Notes: Do Memor ia 7-27 not crush l 14:00: or chew. [place] 00 (Same As: Ecotrin) aspirin No Notes: Do Memor ia 7-27 not crush l 14:00: or chew. [place] 00 (Same As: Ecotrin) aspirin No Notes: Do Memor ia 7-27 not crush l 14:00: or chew. (Same As: Ecotrin) aspirin No Notes: Do Memor ia 7-27 not crush l 14:00: or chew. [place] 00 (Same As: Ecotrin) aspirin No Notes: Do Memor ia 7-27 not crush l 14:00: or chew. (Same As: Ecotrin) aspirin No Notes: Do Memor ia 7-27 not crush l 14:00: or chew. [place] 00 (Same As: Ecotrin) aspirin No Notes: Do Memor ia 7-27 not crush l 14:00: or chew. (Same As: Ecotrin) aspirin No Notes: Do Memor ia 7-27 not crush l 14:00: or chew. [place] 00 (Same As: Ecotrin) aspirin No Notes: Do Memor ia 7-27 not crush l 14:00: or chew. [place] 00 (Same As: Ecotrin) aspirin No Notes: Do Memor ia 7-27 not crush l 14:00: or chew. [place] 00 (Same As: Ecotrin) predniSONE No 20 [...] oria 7-27 tab, l 13:00: Route: PO, [place] 00 Drug form: TAB, Daily, Dosing Weight [...] oria 7-27 tab, l 13:00: Route: PO, [place] 00 Drug form: TAB, Daily, Dosing Weight [...] oria 7-27 tab, l 13:00: Route: PO, [place] 00 Drug form: TAB, Daily, Dosing Weight [...] oria 7-27 tab, l 13:00: Route: PO, [place] 00 Drug form: TAB, Daily, Dosing Weight 80.057, kg, Start date: 06/15/22 8:00:00 CDT, Duration: 30 day, Stop date: 07/14/22 8:00:00 CDT, 0 predniSONE 2022-0 No 20 mg, 1 Mem oria 7-27 tab, l 13:00: Route: PO, [place] 00 Drug form: TAB, Daily, Dosing Weight [...] oria 7-27 tab, l 13:00: Route: PO, [place] 00 Drug form: TAB, Daily, Dosing Weight [...] oria 7-27 tab, l 13:00: Route: PO, [place] 00 Drug form: TAB, Daily, Dosing Weight [...] oria 7-27 tab, l 13:00: Route: PO, [place] 00 Drug form: TAB, Daily, Dosing Weight [...] oria 7-27 tab, l 13:00: Route: PO, [place] 00 Drug form: TAB, Daily, Dosing Weight [...] oria 7-27 tab, l 13:00: Route: PO, [place] 00 Drug form: TAB, Daily, Dosing Weight [...] oria 7-27 tab, l 13:00: Route: PO, [place] 00 Drug form: TAB, Daily, Dosing Weight [...] oria 7-27 tab, l 13:00: Route: PO, [place] 00 Drug form: TAB, Daily, Dosing Weight 80.057, kg, Start date: 06/15/22 8:00:00 CDT, Duration: 30 day, Stop date: 07/14/22 8:00:00 CDT, 0 predniSONE 2022-0 No 20 mg, 1 Mem oria 7-27 tab, l 13:00: Route: PO, [place] 00 Drug form: TAB, Daily, Dosing Weight 80.057, kg, Start date: 06/15/22 8:00:00 CDT, Duration: 30 day, Stop date: 07/14/22 8:00:00 CDT, 0 predniSONE 2022-0 No 20 mg, 1 Mem oria 7-27 tab, l 13:00: Route: PO, [place] 00 Drug form: TAB, Daily, Dosing Weight 80.057, kg, Start date: 06/15/22 8:00:00 CDT, Duration: 30 day, Stop date: 07/14/22 8:00:00 CDT, 0 predniSONE 2022-0 No 20 mg, 1 Mem oria 7-27 tab, l 13:00: Route: PO, [place] 00 Drug form: TAB, Daily, Dosing Weight [...] No /= 14 Memoria chloride 20 7-27 Russian, l mEq oral 11:31: march [place], 00 dissolve extended each 20 release mEq tablet (KCL) in 4 oz of water. Allow about 2 minutes for the tablets to disintegra te. Stir before giving to prepare slurry and administer . Please exclude patient's with feeding tube less than 14 Russian (Dobhoff, J-tube, etc) and pediatric and patients. potassium 2-0 No /= 14 Memoria chloride 20 7-27 Russian, l mEq oral 11:: march [place] tablet, 00 dissolve extended each 20 release mEq tablet (KCL) in 4 oz of water. Allow about 2 minutes for the tablets to disintegra te. Stir before giving to prepare slurry and administer . Please exclude patient's with feeding tube less than 14 Russian (Dobhoff, J-tube, etc) and pediatric and patients. potassium 2021-0 No /= 14 Memoria chloride 20 7-27 Russian, l mEq oral 11:: march [place] tablet, 00 dissolve extended each 20 release mEq tablet (KCL) in 4 oz of water. Allow about 2 minutes for the tablets to disintegra te. Stir before giving to prepare slurry and administer . Please exclude patient's with feeding tube less than 14 Russian (Dobhoff, J-tube, etc) and pediatric and patients. potassium 2021-0 No /= 14 Memoria chloride 20 7-27 Russian, l mEq oral 11: march [place] tablet, 00 dissolve extended each 20 release mEq tablet (KCL) in 4 oz of water. Allow about 2 minutes for the tablets to disintegra te. Stir before giving to prepare slurry and administer . Please exclude patient's with feeding tube less than 14 Russian (Dobhoff, J-tube, etc) and pediatric and patients. potassium 2021-0 No /= 14 Memoria chloride 20 7-27 Russian, l mEq oral 11:: march [place] tablet, 00 dissolve extended each 20 release mEq tablet (KCL) in 4 oz of water. Allow about 2 minutes for the tablets to disintegra te. Stir before giving to prepare slurry and administer . Please exclude patient's with feeding tube less than 14 Russian (Dobhoff, J-tube, etc) and pediatric and patients. potassium 202-0 No /= 14 Memoria chloride 20 7-27 Russian, l mEq oral 11:: march [place] tablet, 00 dissolve extended each 20 release mEq tablet (KCL) in 4 oz of water. Allow about 2 minutes for the tablets to disintegra te. Stir before giving to prepare slurry and administer . Please exclude patient's with feeding tube less than 14 Russian (Dobhoff, J-tube, etc) and pediatric and patients. potassium 2022-0 No /= 14 Memoria chloride 20 7-27 Russian, l mEq oral 11:: march [place] tablet, 00 dissolve extended each 20 release mEq tablet (KCL) in 4 oz of water. Allow about 2 minutes for the tablets to disintegra te. Stir before giving to prepare slurry and administer . Please exclude patient's with feeding tube less than 14 Russian (Dobhoff, J-tube, etc) and pediatric and patients. potassium 2021-0 No /= 14 Memoria chloride 20 7-27 Russian, l mEq oral 11:: march [place] tablet, 00 dissolve extended each 20 release mEq tablet (KCL) in 4 oz of water. Allow about 2 minutes for the tablets to disintegra te. Stir before giving to prepare slurry and administer . Please exclude patient's with feeding tube less than 14 Russian (Dobhoff, J-tube, etc) and pediatric and patients. potassium 2021-0 No /= 14 Memoria chloride 20 7-27 Russian, l mEq oral 11:: march [place] tablet, 00 dissolve extended each 20 release mEq tablet (KCL) in 4 oz of water. Allow about 2 minutes for the tablets to disintegra te. Stir before giving to prepare slurry and administer . Please exclude patient's with feeding tube less than 14 Russian (Dobhoff, J-tube, etc) and pediatric and patients. potassium 0 No /= 14 Memoria chloride 20 7-27 Russian, l mEq oral 11:: march [place] tablet, 00 dissolve extended each 20 release mEq tablet (KCL) in 4 oz of water. Allow about 2 minutes for the tablets to disintegra te. Stir before giving to prepare slurry and administer . Please exclude patient's with feeding tube less than 14 Russian (Dobhoff, J-tube, etc) and pediatric and patients. potassium 2021-0 No /= 14 Memoria chloride 20 7-27 Russian, l mEq oral 11:: march [place] tablet, 00 dissolve extended each 20 release mEq tablet (KCL) in 4 oz of water. Allow about 2 minutes for the tablets to disintegra te. Stir before giving to prepare slurry and administer . Please exclude patient's with feeding tube less than 14 Russian (Dobhoff, J-tube, etc) and pediatric and patients. potassium 2021-0 No /= 14 Memoria chloride 20 7-27 Russian, l mEq oral 11:31: march [place] tablet, 00 dissolve extended each 20 release mEq tablet (KCL) in 4 oz of water. Allow about 2 minutes for the tablets to disintegra te. Stir before giving to prepare slurry and administer . Please exclude patient's with feeding tube less than 14 Russian (Dobhoff, J-tube, etc) and pediatric and patients. potassium 2022-0 No /= 14 Memoria chloride 20 7-27 Russian, l mEq oral 11: march [place] tablet, 00 dissolve extended each 20 release mEq tablet (KCL) in 4 oz of water. Allow about 2 minutes for the tablets to disintegra te. Stir before giving to prepare slurry and administer . Please exclude patient's with feeding tube less than 14 Russian (Dobhoff, J-tube, etc) and pediatric and patients. potassium 2021-0 No /= 14 Memoria chloride 20 7-27 Russian, l mEq oral : march [place] tablet, 00 dissolve extended each 20 release mEq tablet (KCL) in 4 oz of water. Allow about 2 minutes for the tablets to disintegra te. Stir before giving to prepare slurry and administer . Please exclude patient's with feeding tube less than 14 Russian (Dobhoff, J-tube, etc) and pediatric and patients. potassium 2021-0 No /= 14 Mem[facility] chloride 20 7-27 Russian, l mEq oral : march [place] tablet, 00 dissolve extended each 20 release mEq tablet (KCL) in 4 oz of water. Allow about 2 minutes for the tablets to disintegra te. Stir before giving to prepare slurry and administer . Please exclude patient's with feeding tube less than 14 Russian (Dobhoff, J-tube, etc) and pediatric and patients. potassium 2022-0 No /= 14 Memoria chloride 20 7-27 Russian, l mEq oral 11: march [place] tablet, 00 dissolve extended each 20 release mEq tablet (KCL) in 4 oz of water. Allow about 2 minutes for the tablets to disintegra te. Stir before giving to prepare slurry and administer . Please exclude patient's with feeding tube less than 14 Russian (Dobhoff, J-tube, etc) and pediatric and patients. potassium 2022-0 No /= 14 Memoria chloride 20 7-27 Russian, l mEq oral : march [place] tablet, 00 dissolve extended each 20 release mEq tablet (KCL) in 4 oz of water. Allow about 2 minutes for the tablets to disintegra te. Stir before giving to prepare slurry and administer . Please exclude patient's with feeding tube less than 14 Russian (Dobhoff, J-tube, etc) and pediatric and patients. potassium 2022-0 No /= 14 Memoria chloride 20 7-27 Russian, l mEq oral 11:: march Tomas tablet, 00 dissolve extended each 20 release mEq tablet (KCL) in 4 oz of water. Allow about 2 minutes for the tablets to disintegra te. Stir before giving to prepare slurry and administer . Please exclude patient's with feeding tube less than 14 Russian (Dobhoff, J-tube, etc) and pediatric and patients. potassium 2022-0 No /= 14 Memoria chloride 20 7-27 Russian, l mEq oral 11:: march Tomas tablet, 00 dissolve extended each 20 release mEq tablet (KCL) in 4 oz of water. Allow about 2 minutes for the tablets to disintegra te. Stir before giving to prepare slurry and administer . Please exclude patient's with feeding tube less than 14 Russian (Dobhoff, J-tube, etc) and pediatric and patients. potassium 2-0 No /= 14 Memoria chloride 20 7-27 Russian, l mEq oral 11:: march [place] tablet, 00 dissolve extended each 20 release mEq tablet (KCL) in 4 oz of water. Allow about 2 minutes for the tablets to disintegra te. Stir before giving to prepare slurry and administer . Please exclude patient's with feeding tube less than 14 Russian (Dobhoff, J-tube, etc) and pediatric and patients. potassium 2022-0 No /= 14 Memoria chloride 20 7-27 Russian, l mEq oral 11:: march Tomas tablet, 00 dissolve extended each 20 release mEq tablet (KCL) in 4 oz of water. Allow about 2 minutes for the tablets to disintegra te. Stir before giving to prepare slurry and administer . Please exclude patient's with feeding tube less than 14 Russian (Dobhoff, J-tube, etc) and pediatric and patients. potassium 2022-0 No /= 14 Memoria chloride 20 7-27 Russian, l mEq oral 11:: march [place] tablet, 00 dissolve extended each 20 release mEq tablet (KCL) in 4 oz of water. Allow about 2 minutes for the tablets to disintegra te. Stir before giving to prepare slurry and administer . Please exclude patient's with feeding tube less than 14 Russian (Dobhoff, J-tube, etc) and pediatric and patients. potassium 2022-0 No /= 14 Memoria chloride 20 7-27 Russian, l mEq oral 11:31: march [place] tablet, 00 dissolve extended each 20 release mEq tablet (KCL) in 4 oz of water. Allow about 2 minutes for the tablets to disintegra te. Stir before giving to prepare slurry and administer . Please exclude patient's with feeding tube less than 14 Russian (Dobhoff, J-tube, etc) and pediatric and patients. potassium 2022-0 No /= 14 Memoria chloride 20 7-27 Russian, l mEq oral 11:31: march [place] tablet, 00 dissolve extended each 20 release mEq tablet (KCL) in 4 oz of water. Allow about 2 minutes for the tablets to disintegra te. Stir before giving to prepare slurry and administer . Please exclude patient's with feeding tube less than 14 Russian (Dobhoff, J-tube, etc) and pediatric and patients. potassium 2022-0 No /= 14 Memoria chloride 20 7-27 Russian, l mEq oral 11:: march Tomas tablet, 00 dissolve extended each 20 release mEq tablet (KCL) in 4 oz of water. Allow about 2 minutes for the tablets to disintegra te. Stir before giving to prepare slurry and administer . Please exclude patient's with feeding tube less than 14 Russian (Dobhoff, J-tube, etc) and pediatric and patients. potassium 2022-0 No /= 14 Memoria chloride 20 7-27 Russian, l mEq oral 11:: march [place] tablet, 00 dissolve extended each 20 release mEq tablet (KCL) in 4 oz of water. Allow about 2 minutes for the tablets to disintegra te. Stir before giving to prepare slurry and administer . Please exclude patient's with feeding tube less than 14 Russian (Dobhoff, J-tube, etc) and pediatric and patients. potassium 2022-0 No /= 14 Memoria chloride 20 7-27 Russian, l mEq oral 11:31: march [place] tablet, 00 dissolve extended each 20 release mEq tablet (KCL) in 4 oz of water. Allow about 2 minutes for the tablets to disintegra te. Stir before giving to prepare slurry and administer . Please exclude patient's with feeding tube less than 14 Russian (Dobhoff, J-tube, etc) and pediatric and patients. potassium 2022-0 No /= 14 Memoria chloride 20 7-27 Russian, l mEq oral 11:: march Tomas tablet, 00 dissolve extended each 20 release mEq tablet (KCL) in 4 oz of water. Allow about 2 minutes for the tablets to disintegra te. Stir before giving to prepare slurry and administer . Please exclude patient's with feeding tube less than 14 Russian (Dobhoff, J-tube, etc) and pediatric and patients. potassium 2022-0 No /= 14 Memoria chloride 20 7-27 Russian, l mEq oral 11:: march [place] tablet, 00 dissolve extended each 20 release mEq tablet (KCL) in 4 oz of water. Allow about 2 minutes for the tablets to disintegra te. Stir before giving to prepare slurry and administer . Please exclude patient's with feeding tube less than 14 Russian (Dobhoff, J-tube, etc) and pediatric and patients. potassium 2021-0 No /= 14 Memoria chloride 20 7-27 Russian, l mEq oral 11:: march Tomas tablet, 00 dissolve extended each 20 release mEq tablet (KCL) in 4 oz of water. Allow about 2 minutes for the tablets to disintegra te. Stir before giving to prepare slurry and administer . Please exclude patient's with feeding tube less than 14 Russian (Dobhoff, J-tube, etc) and pediatric and patients. potassium 202-0 No /= 14 Memoria chloride 20 7-27 Russian, l mEq oral 11:: march [place] tablet, 00 dissolve extended each 20 release mEq tablet (KCL) in 4 oz of water. Allow about 2 minutes for the tablets to disintegra te. Stir before giving to prepare slurry and administer . Please exclude patient's with feeding tube less than 14 Russian (Dobhoff, J-tube, etc) and pediatric and patients. potassium 202-0 No /= 14 Memoria chloride 20 7-27 Russian, l mEq oral 11:: march Tomas tablet, 00 dissolve extended each 20 release mEq tablet (KCL) in 4 oz of water. Allow about 2 minutes for the tablets to disintegra te. Stir before giving to prepare slurry and administer . Please exclude patient's with feeding tube less than 14 Russian (Dobhoff, J-tube, etc) and pediatric and patients. potassium 2022-0 No /= 14 Memoria chloride 20 7-27 Russian, l mEq oral 11:: march Tomas tablet, 00 dissolve extended each 20 release mEq tablet (KCL) in 4 oz of water. Allow about 2 minutes for the tablets to disintegra te. Stir before giving to prepare slurry and administer . Please exclude patient's with feeding tube less than 14 Russian (Dobhoff, J-tube, etc) and pediatric and patients. potassium 2022-0 No /= 14 Memoria chloride 20 7-27 Russian, l mEq oral 11:: march [place] tablet, 00 dissolve extended each 20 release mEq tablet (KCL) in 4 oz of water. Allow about 2 minutes for the tablets to disintegra te. Stir before giving to prepare slurry and administer . Please exclude patient's with feeding tube less than 14 Russian (Dobhoff, J-tube, etc) and pediatric and patients. potassium 2021-0 No /= 14 Memoria chloride 20 7-27 Russian, l mEq oral 11: march [place] tablet, 00 dissolve extended each 20 release mEq tablet (KCL) in 4 oz of water. Allow about 2 minutes for the tablets to disintegra te. Stir before giving to prepare slurry and administer . Please exclude patient's with feeding tube less than 14 Russian (Dobhoff, J-tube, etc) and pediatric and patients. potassium 2021-0 No /= 14 Memoria chloride 20 7-27 Russian, l mEq oral 11:: march [place] tablet, 00 dissolve extended each 20 release mEq tablet (KCL) in 4 oz of water. Allow about 2 minutes for the tablets to disintegra te. Stir before giving to prepare slurry and administer . Please exclude patient's with feeding tube less than 14 Russian (Dobhoff, J-tube, etc) and pediatric and patients. potassium 2022-0 No /= 14 Memoria chloride 20 7-27 Russian, l mEq oral 11: march [place] tablet, 00 dissolve extended each 20 release mEq tablet (KCL) in 4 oz of water. Allow about 2 minutes for the tablets to disintegra te. Stir before giving to prepare slurry and administer . Please exclude patient's with feeding tube less than 14 Russian (Dobhoff, J-tube, etc) and pediatric and patients. potassium 2022-0 No /= 14 Memoria chloride 20 7-27 Russian, l mEq oral 11:31: march [place] tablet, 00 dissolve extended each 20 release mEq tablet (KCL) in 4 oz of water. Allow about 2 minutes for the tablets to disintegra te. Stir before giving to prepare slurry and administer . Please exclude patient's with feeding tube less than 14 Russian (Dobhoff, J-tube, etc) and pediatric and patients. potassium 2021-0 No /= 14 Memoria chloride 20 7-27 Russian, l mEq oral 11:31: march Tomas tablet, 00 dissolve extended each 20 release mEq tablet (KCL) in 4 oz of water. Allow about 2 minutes for the tablets to disintegra te. Stir before giving to prepare slurry and administer . Please exclude patient's with feeding tube less than 14 Russian (Dobhoff, J-tube, etc) and pediatric and patients. potassium 2021-0 No /= 14 Memoria chloride 20 7-27 Russian, l mEq oral 11:: march [place]omas tablet, 00 dissolve extended each 20 release mEq tablet (KCL) in 4 oz of water. Allow about 2 minutes for the tablets to disintegra te. Stir before giving to prepare slurry and administer . Please exclude patient's with feeding tube less than 14 Russian (Dobhoff, J-tube, etc) and pediatric and patients. potassium 2021-0 No /= 14 Memoria chloride 20 7-27 Russian, l mEq oral 11:: march [place]omas tablet, 00 dissolve extended each 20 release mEq tablet (KCL) in 4 oz of water. Allow about 2 minutes for the tablets to disintegra te. Stir before giving to prepare slurry and administer . Please exclude patient's with feeding tube less than 14 Russian (Dobhoff, J-tube, etc) and pediatric and patients. potassium 202-0 No /= 14 Memoria chloride 20 7-27 Russian, l mEq oral 11:: march [place]omas tablet, 00 dissolve extended each 20 release mEq tablet (KCL) in 4 oz of water. Allow about 2 minutes for the tablets to disintegra te. Stir before giving to prepare slurry and administer . Please exclude patient's with feeding tube less than 14 Russian (Dobhoff, J-tube, etc) and pediatric and patients. potassium 202-0 No /= 14 Memoria chloride 20 7-27 Russian, l mEq oral 11:: march [place] tablet, 00 dissolve extended each 20 release mEq tablet (KCL) in 4 oz of water. Allow about 2 minutes for the tablets to disintegra te. Stir before giving to prepare slurry and administer . Please exclude patient's with feeding tube less than 14 Russian (Dobhoff, J-tube, etc) and pediatric and patients. potassium 2022-0 No /= 14 Memoria chloride 20 7-27 Russian, l mEq oral 11:: march [place] tablet, 00 dissolve extended each 20 release mEq tablet (KCL) in 4 oz of water. Allow about 2 minutes for the tablets to disintegra te. Stir before giving to prepare slurry and administer . Please exclude patient's with feeding tube less than 14 Russian (Dobhoff, J-tube, etc) and pediatric and patients. potassium 2021-0 No /= 14 Memoria chloride 20 7-27 Russian, l mEq oral 11: march [place] tablet, 00 dissolve extended each 20 release mEq tablet (KCL) in 4 oz of water. Allow about 2 minutes for the tablets to disintegra te. Stir before giving to prepare slurry and administer . Please exclude patient's with feeding tube less than 14 Russian (Dobhoff, J-tube, etc) and pediatric and patients. potassium 2021-0 No /= 14 Memoria chloride 20 7-27 Russian, l mEq oral : march [place] tablet, 00 dissolve extended each 20 release mEq tablet (KCL) in 4 oz of water. Allow about 2 minutes for the tablets to disintegra te. Stir before giving to prepare slurry and administer . Please exclude patient's with feeding tube less than 14 Russian (Dobhoff, J-tube, etc) and pediatric and patients. potassium 2021-0 No /= 14 Memoria chloride 20 7-27 Russian, l mEq oral 11:: march [place] tablet, 00 dissolve extended each 20 release mEq tablet (KCL) in 4 oz of water. Allow about 2 minutes for the tablets to disintegra te. Stir before giving to prepare slurry and administer . Please exclude patient's with feeding tube less than 14 Russian (Dobhoff, J-tube, etc) and pediatric and patients. potassium 2022-0 No /= 14 Memoria chloride 20 7-27 Russian, l mEq oral 11:: march [place] tablet, 00 dissolve extended each 20 release mEq tablet (KCL) in 4 oz of water. Allow about 2 minutes for the tablets to disintegra te. Stir before giving to prepare slurry and administer . Please exclude patient's with feeding tube less than 14 Russian (Dobhoff, J-tube, etc) and pediatric and patients. potassium 2022-0 No /= 14 Memoria chloride 20 7-27 Russian, l mEq oral 11:: march [place]omas tablet, 00 dissolve extended each 20 release mEq tablet (KCL) in 4 oz of water. Allow about 2 minutes for the tablets to disintegra te. Stir before giving to prepare slurry and administer . Please exclude patient's with feeding tube less than 14 Russian (Dobhoff, J-tube, etc) and pediatric and patients. potassium 2022-0 No /= 14 Memoria chloride 20 7-27 Russian, l mEq oral 11:: march [place] tablet, 00 dissolve extended each 20 release mEq tablet (KCL) in 4 oz of water. Allow about 2 minutes for the tablets to disintegra te. Stir before giving to prepare slurry and administer . Please exclude patient's with feeding tube less than 14 Russian (Dobhoff, J-tube, etc) and pediatric and patients. potassium 2022-0 No /= 14 Memoria chloride 20 7-27 Russian, l mEq oral 11:: march [place] tablet, 00 dissolve extended each 20 release mEq tablet (KCL) in 4 oz of water. Allow about 2 minutes for the tablets to disintegra te. Stir before giving to prepare slurry and administer . Please exclude patient's with feeding tube less than 14 Russian (Dobhoff, J-tube, etc) and pediatric and patients. potassium 2022-0 No /= 14 Memoria chloride 20 7-27 Russian, l mEq oral 11:: march [place] tablet, 00 dissolve extended each 20 release mEq tablet (KCL) in 4 oz of water. Allow about 2 minutes for the tablets to disintegra te. Stir before giving to prepare slurry and administer . Please exclude patient's with feeding tube less than 14 Russian (Dobhoff, J-tube, etc) and pediatric and patients. potassium 2022-0 No /= 14 Mem[facility] chloride 20 7-27 Russian, l mEq oral 11:: march [place] tablet, 00 dissolve extended each 20 release mEq tablet (KCL) in 4 oz of water. Allow about 2 minutes for the tablets to disintegra te. Stir before giving to prepare slurry and administer . Please exclude patient's with feeding tube less than 14 Russian (Dobhoff, J-tube, etc) and pediatric and patients. metoprolol No Notes: Memor ia tartrate 7-27 (Same as: l 02:00: Lopressor) metoprolol No Notes: Memor ia tartrate 7-27 (Same as: l 02:00: Lopressor) metoprolol No Notes: Memor ia tartrate 7-27 (Same as: l 02:00: Lopressor) metoprolol No Notes: Memor ia tartrate 7-27 (Same as: l 02:00: Lopressor) metoprolol No Notes: Memor ia tartrate 7-27 (Same as: l 02:00: Lopressor) metoprolol No Notes: Memor ia tartrate 7-27 (Same as: l 02:00: Lopressor) metoprolol No Notes: Memor ia tartrate 7-27 (Same as: l 02:00: Lopressor) metoprolol No Notes: Memor ia tartrate 7-27 (Same as: l 02:00: Lopressor) metoprolol No Notes: Memor ia tartrate 7-27 (Same as: l 02:00: Lopressor) metoprolol No Notes: Memor ia tartrate 7-27 (Same as: l 02:00: Lopressor) metoprolol No Notes: Memor ia tartrate 7-27 (Same as: l 02:00: Lopressor) metoprolol No Notes: Memor ia tartrate 7-27 (Same as: l 02:00: Lopressor) metoprolol No Notes: Memor ia tartrate 7-27 (Same as: l 02:00: Lopressor) metoprolol No Notes: Memor ia tartrate 7-27 (Same as: l 02:00: Lopressor) metoprolol No Notes: Memor ia tartrate 7-27 (Same as: l 02:00: Lopressor) metoprolol No Notes: Memor ia tartrate 7-27 (Same as: l 02:00: Lopressor) metoprolol No Notes: Memor ia tartrate 7-27 (Same as: l 02:00: Lopressor) metoprolol No Notes: Memor ia tartrate 7-27 (Same as: l 02:00: Lopressor) metoprolol No Notes: Memor ia tartrate 7-27 (Same as: l 02:00: Lopressor) metoprolol No Notes: Memor ia tartrate 7-27 (Same as: l 02:00: Lopressor) metoprolol No Notes: Memor ia tartrate 7-27 (Same as: l 02:00: Lopressor) metoprolol No Notes: Memor ia tartrate 7-27 (Same as: l 02:00: Lopressor) metoprolol No Notes: Memor ia tartrate 7-27 (Same as: l 02:00: Lopressor) metoprolol No Notes: Memor ia tartrate 7-27 (Same as: l 02:00: Lopressor) metoprolol No Notes: Memor ia tartrate 7-27 (Same as: l 02:00: Lopressor) metoprolol No Notes: Memor ia tartrate 7-27 (Same as: l 02:00: Lopressor) metoprolol No Notes: Memor ia tartrate 7-27 (Same as: l 02:00: Lopressor) metoprolol No Notes: Memor ia tartrate 7-27 (Same as: l 02:00: Lopressor) metoprolol No Notes: Memor ia tartrate 7-27 (Same as: l 02:00: Lopressor) metoprolol No Notes: Memor ia tartrate 7-27 (Same as: l 02:00: Lopressor) metoprolol No Notes: Memor ia tartrate 7-27 (Same as: l 02:00: Lopressor) metoprolol No Notes: Memor ia tartrate 7-27 (Same as: l 02:00: Lopressor) metoprolol No Notes: Memor ia tartrate 7-27 (Same as: l 02:00: Lopressor) metoprolol No Notes: Memor ia tartrate 7-27 (Same as: l 02:00: Lopressor) metoprolol No Notes: Memor ia tartrate 7-27 (Same as: l 02:00: Lopressor) metoprolol No Notes: Memor ia tartrate 7-27 (Same as: l 02:00: Lopressor) metoprolol No Notes: Memor ia tartrate 7-27 (Same as: l 02:00: Lopressor) metoprolol No Notes: Memor ia tartrate 7-27 (Same as: l 02:00: Lopressor) metoprolol No Notes: Memor ia tartrate 7-27 (Same as: l 02:00: Lopressor) metoprolol No Notes: Memor ia tartrate 7-27 (Same as: l 02:00: Lopressor) metoprolol No Notes: Memor ia tartrate 7-27 (Same as: l 02:00: Lopressor) metoprolol No Notes: Memor ia tartrate 7-27 (Same as: l 02:00: Lopressor) metoprolol No Notes: Memor ia tartrate 7-27 (Same as: l 02:00: Lopressor) metoprolol No Notes: Memor ia tartrate 7-27 (Same as: l 02:00: Lopressor) metoprolol No Notes: Memor ia tartrate 7-27 (Same as: l 02:00: Lopressor) metoprolol No Notes: Memor ia tartrate 7-27 (Same as: l 02:00: Lopressor) metoprolol No Notes: Memor ia tartrate 7-27 (Same as: l 02:00: Lopressor) metoprolol No Notes: Memor ia tartrate 7-27 (Same as: l 02:00: Lopressor) metoprolol No Notes: Memor ia tartrate 7-27 (Same as: l 02:00: Lopressor) metoprolol No Notes: Memor ia tartrate 7-27 (Same as: l 02:00: Lopressor) metoprolol No Notes: Memor ia tartrate 7-27 (Same as: l 02:00: Lopressor) metoprolol No Notes: Memor ia tartrate 7-27 (Same as: l 02:00: Lopressor) metoprolol No Notes: Memor ia tartrate 7-27 (Same as: l 02:00: Lopressor) Cepacol No Notes: [facility] Sore Throat 7- Same as: l 15 mg-3.6 19:24: Cepacol Alejandra nn mg mucous 00 membrane lozenge Cepacol No Notes: [facility] Sore Throat 7- Same as: l 15 mg-3.6 19:24: Cepacol Alejandra nn mg mucous 00 membrane lozenge Cepacol 0 No Notes: [facility] Sore Throat 7-26 Same as: l 15 mg-3.6 19:24: Cepacol Alejandra nn mg mucous 00 membrane lozenge Cepacol 0 No Notes: [facility] Sore Throat 7- Same as: l 15 mg-3.6 19:24: Cepacol Alejandra nn mg mucous 00 membrane lozenge Cepacol 0 No Notes: [facility] Sore Throat 7-26 Same as: l 15 mg-3.6 19:24: Cepacol Alejandra nn mg mucous 00 membrane lozenge Cepacol 2021-0 No Notes: [facility] Sore Throat 06-14 Same as: l 15 mg-3.6 19:24: Cepacol Alejandra nn mg mucous 00 membrane lozenge Cepacol 2021-0 No Notes: [facility] Sore Throat 06-14 Same as: l 15 mg-3.6 19:24: Cepacol Alejandra nn mg mucous 00 membrane lozenge Cepacol 2021-0 No Notes: [facility] Sore Throat 06-14 Same as: l 15 mg-3.6 19:24: Cepacol Alejandra nn mg mucous 00 membrane lozenge Cepacol 2021-0 No Notes: [facility] Sore Throat 06-14 Same as: l 15 mg-3.6 19:24: Cepacol Alejadnra nn mg mucous 00 membrane lozenge Cepacol 2021-0 No Notes: [facility] Sore Throat 06-14 Same as: l 15 mg-3.6 19:24: Cepacol Alejandra nn mg mucous 00 membrane lozenge Cepacol 2021-0 No Notes: [facility] Sore Throat 06-14 Same as: l 15 mg-3.6 19:24: Cepacol Alejandra nn mg mucous 00 membrane lozenge Cepacol 2021-0 No Notes: [facility] Sore Throat 06-14 Same as: l 15 mg-3.6 19:24: Cepacol Alejandra nn mg mucous 00 membrane lozenge Cepacol 2021-0 No Notes: [facility] Sore Throat 06-14 Same as: l 15 mg-3.6 19:24: Cepacol Alejandra nn mg mucous 00 membrane lozenge Cepacol 2021-0 No Notes: [facility] Sore Throat 06-14 Same as: l 15 mg-3.6 19:24: Cepacol Alejandra nn mg mucous 00 membrane lozenge Cepacol 2021-0 No Notes: [facility] Sore Throat 06-14 Same as: l 15 mg-3.6 19:24: Cepacol Alejandra nn mg mucous 00 membrane lozenge Cepacol 2021-0 No Notes: [facility] Sore Throat 06-14 Same as: l 15 mg-3.6 19:24: Cepacol Alejandra nn mg mucous 00 membrane lozenge Cepacol 2021-0 No Notes: [facility] Sore Throat 06-14 Same as: l 15 mg-3.6 19:24: Cepacol Alejandra nn mg mucous 00 membrane lozenge Cepacol 2021-0 No Notes: [facility] Sore Throat 06-14 Same as: l 15 mg-3.6 19:24: Cepacol Alejandra nn mg mucous 00 membrane lozenge Cepacol 2021-0 No Notes: [facility] Sore Throat 06-14 Same as: l 15 mg-3.6 19:24: Cepacol Alejandra nn mg mucous 00 membrane lozenge Cepacol 2021-0 No Notes: [facility] Sore Throat 06-14 Same as: l 15 mg-3.6 19:24: Cepacol Alejandra nn mg mucous 00 membrane lozenge Cepacol 2021-0 No Notes: [facility] Sore Throat 06-14 Same as: l 15 mg-3.6 19:24: Cepacol Alejandra nn mg mucous 00 membrane lozenge Cepacol 2021-0 No Notes: [facility] Sore Throat 06-14 Same as: l 15 mg-3.6 19:24: Cepacol Alejandra nn mg mucous 00 membrane lozenge Cepacol 2021-0 No Notes: [facility] Sore Throat 06-14 Same as: l 15 mg-3.6 19:24: Cepacol Alejandra nn mg mucous 00 membrane lozenge Cepacol 2021-0 No Notes: [facility] Sore Throat 06-14 Same as: l 15 mg-3.6 19:24: Cepacol Alejandra nn mg mucous 00 membrane lozenge Cepacol 2021-0 No Notes: [facility] Sore Throat 06-14 Same as: l 15 mg-3.6 19:24: Cepacol Alejandra nn mg mucous 00 membrane lozenge Cepacol 2021-0 No Notes: [facility] Sore Throat 06-14 Same as: l 15 mg-3.6 19:24: Cepacol Alejandra nn mg mucous 00 membrane lozenge Cepacol 2-0 No Notes: [facility] Sore Throat 06-14 Same as: l 15 mg-3.6 19:24: Cepacol Alejandra nn mg mucous 00 membrane lozenge Cepacol 2021-0 No Notes: [facility] Sore Throat 06-14 Same as: l 15 mg-3.6 19:24: Cepacol Alejandra nn mg mucous 00 membrane lozenge Cepacol 2021-0 No Notes: [facility] Sore Throat 06-14 Same as: l 15 mg-3.6 19:24: Cepacol Alejandra nn mg mucous 00 membrane lozenge Cepacol 2021-0 No Notes: [facility] Sore Throat 06-14 Same as: l 15 mg-3.6 19:24: Cepacol Aleajndra nn mg mucous 00 membrane lozenge Cepacol 2021-0 No Notes: [facility] Sore Throat 06-14 Same as: l 15 mg-3.6 19:24: Cepacol Alejandra nn mg mucous 00 membrane lozenge Cepacol 2021-0 No Notes: [facility] Sore Throat 06-14 Same as: l 15 mg-3.6 19:24: Cepacol Alejandra nn mg mucous 00 membrane lozenge Cepacol 2021-0 No Notes: [facility] Sore Throat 06-14 Same as: l 15 mg-3.6 19:24: Cepacol Alejandra nn mg mucous 00 membrane lozenge Cepacol 2021-0 No Notes: [facility] Sore Throat 06-14 Same as: l 15 mg-3.6 19:24: Cepacol Alejandra nn mg mucous 00 membrane lozenge Cepacol 2021-0 No Notes: [facility] Sore Throat 06-14 Same as: l 15 mg-3.6 19:24: Cepacol Alejandra nn mg mucous 00 membrane lozenge Cepacol 2021-0 No Notes: [facility] Sore Throat 06-14 Same as: l 15 mg-3.6 19:24: Cepacol Alejandra nn mg mucous 00 membrane lozenge Cepacol 2021-0 No Notes: Memoria Sore Throat 06-14 Same as: l 15 mg-3.6 19:24: Cepacol Alejandra nn mg mucous 00 membrane lozenge Cepacol 2021-0 No Notes: Memoria Sore Throat 06-14 Same as: l 15 mg-3.6 19:24: Cepacol Alejandra nn mg mucous 00 membrane lozenge Cepacol 2021-0 No Notes: [facility]oria Sore Throat 06-14 Same as: l 15 mg-3.6 19:24: Cepacol Alejandra nn mg mucous 00 membrane lozenge Cepacol 2021-0 No Notes: Memoria Sore Throat 06-14 Same as: l 15 mg-3.6 19:24: Cepacol Alejandra nn mg mucous 00 membrane lozenge Cepacol 2021-0 No Notes: [facility]oria Sore Throat 06-14 Same as: l 15 mg-3.6 19:24: Cepacol Alejandra nn mg mucous 00 membrane lozenge Cepacol 2021-0 No Notes: [facility]oria Sore Throat 06-14 Same as: l 15 mg-3.6 19:24: Cepacol Alejandra nn mg mucous 00 membrane lozenge Cepacol 2021-0 No Notes: Memoria Sore Throat 06-14 Same as: l 15 mg-3.6 19:24: Cepacol Alejandra nn mg mucous 00 membrane lozenge Cepacol 2021-0 No Notes: Memoria Sore Throat 06-14 Same as: l 15 mg-3.6 19:24: Cepacol Alejandra nn mg mucous 00 membrane lozenge Cepacol 2021-0 No Notes: Memoria Sore Throat 06-14 Same as: l 15 mg-3.6 19:24: Cepacol Alejandra nn mg mucous 00 membrane lozenge Cepacol 2021-0 No Notes: Memoria Sore Throat 06-14 Same as: l 15 mg-3.6 19:24: Cepacol Alejandra nn mg mucous 00 membrane lozenge Cepacol 2021-0 No Notes: Memoria Sore Throat 06-14 Same as: l 15 mg-3.6 19:24: Cepacol Alejandra nn mg mucous 00 membrane lozenge Cepacol 2021-0 No Notes: Memoria Sore Throat 06-14 Same as: l 15 mg-3.6 19:24: Cepacol Alejandra nn mg mucous 00 membrane lozenge Cepacol 2021-0 No Notes: Memoria Sore Throat 06-14 Same as: l 15 mg-3.6 19:24: Cepacol Alejandra nn mg mucous 00 membrane lozenge Cepacol 2021-0 No Notes: Memoria Sore Throat 7-26 Same as: l 15 mg-3.6 19:24: Cepacol Alejandra nn mg mucous 00 membrane lozenge Cepacol 2021-0 No Notes: Memoria Sore Throat 7-26 Same as: l 15 mg-3.6 19:24: Cepacol Alejandra nn mg mucous 00 membrane lozenge Cepacol 2021-0 No Notes: Memoria Sore Throat 7-26 Same as: l 15 mg-3.6 19:24: Cepacol Alejandra nn mg mucous 00 membrane lozenge Cepacol 2021-0 No Notes: Memoria Sore Throat 7-26 Same as: l 15 mg-3.6 19:24: Cepacol Alejandra nn mg mucous 00 membrane lozenge anastrozole 2021-0 No Notes: Sanya clementine 7-26 (Same as: l 14:00: Arimidex) [place] [facility]: [facility] [...] Memoria 7-26 Tablet l 14:00: should not [place] 00 be chewed or crushed. (Same as: Protonix) anastrozole 2021-0 No Notes: Sanya clementine 7-26 (Same as: l 14:00: Arimidex) [place] [facility]: [facility] -- Refer to safe handling procedure PPE Matrix WASTE: F/P - Black; E Yellow omeprazole 2022-0 No 20 mg, 1 Mem oria 7-26 cap, l 14:00: Route: PO, [place] 00 Drug form: DRC, Daily, Dosing Weight 63.636, kg, Start date: 06/14/22 9:00:00 CDT, Duration: 30 day, Stop date: 07/13/22 9:00:00 CDT Protonix 2021-0 No Notes: Memoria 7-26 Tablet l 14:00: should not [place] 00 be chewed or crushed. (Same as: Protonix) anastrozole 0 No Notes: Sanya clementine 7-26 (Same as: l 14:00: Arimidex) [place] [facility]: [facility] -- Refer to safe handling procedure PPE Matrix WASTE: F/P - Black; E Yellow omeprazole 2021-0 No 20 mg, 1 Mem oria 7-26 cap, l 14:00: Route: PO, [place] 00 Drug form: DRC, Daily, Dosing Weight 63.636, kg, Start date: 06/14/22 9:00:00 CDT, Duration: 30 day, Stop date: 07/13/22 9:00:00 CDT Protonix 2-0 No Notes: Memoria 7-26 Tablet l 14:00: should not [place] 00 be chewed or crushed. (Same as: Protonix) anastrozole 0 No Notes: Sanya clementine 7-26 (Same as: l 14:00: Arimidex) [place] [facility]: [facility] -- Refer to safe handling procedure PPE Matrix WASTE: F/P - Black; E Yellow omeprazole 2021-0 No 20 mg, 1 Mem oria 7-26 cap, l 14:00: Route: PO, [place] 00 Drug form: DRC, Daily, Dosing Weight 63.636, kg, Start date: 06/14/22 9:00:00 CDT, Duration: 30 day, Stop date: 07/13/22 9:00:00 CDT Protonix 2-0 No Notes: Memoria 7-26 Tablet l 14:00: should not [place] 00 be chewed or crushed. (Same as: Protonix) anastrozole 2021-0 No Notes: Sanya clementine 7-26 (Same as: l 14:00: Arimidex) [place] [facility]: [facility] -- Refer to safe handling procedure PPE Matrix WASTE: F/P - Black; E Yellow omeprazole 2022-0 No 20 mg, 1 Mem oria 7-26 cap, l 14:00: Route: PO, [place] 00 Drug form: DRC, Daily, Dosing Weight 63.636, kg, Start date: 06/14/22 9:00:00 CDT, Duration: 30 day, Stop date: 07/13/22 9:00:00 CDT Protonix 2021-0 No Notes: Memoria 7-26 Tablet l 14:00: should not [place] 00 be chewed or crushed. (Same as: [...] Memoria 7-26 Tablet l 14:00: should not [place] 00 be chewed or crushed. (Same as: Protonix) anastrozole No Notes: Sanya clementine 7-26 (Same as: l 14:00: Arimidex) [place] [facility] 1: [facility] -- Refer to safe handling procedure PPE Matrix WASTE: F/P - Black; E Yellow omeprazole No 20 mg, 1 Mem oria 7-26 cap, l 14:00: Route: PO, [place] 00 Drug form: DRC, Daily, Dosing Weight 63.636, kg, Start date: 06/14/22 9:00:00 CDT, Duration: 30 day, Stop date: 07/13/22 9:00:00 CDT Protonix 2021-0 No Notes: Memoria 7-26 Tablet l 14:00: should not [place] 00 be chewed or crushed. (Same as: Protonix) anastrozole No Notes: Sanya clementine 7-26 (Same as: l 14:00: Arimidex) [place] [facility] 1: [facility] -- Refer to safe handling procedure PPE Matrix WASTE: F/P - Black; E Yellow omeprazole 2021-0 No 20 mg, 1 Mem oria 7-26 cap, l 14:00: Route: PO, [place] 00 Drug form: DRC, Daily, Dosing Weight 63.636, kg, Start date: 06/14/22 9:00:00 CDT, Duration: 30 day, Stop date: 07/13/22 9:00:00 CDT Protonix 2021-0 No Notes: Memoria 7-26 Tablet l 14:00: should not [place] 00 be chewed or crushed. (Same as: [...] Memoria 7-26 Tablet l 14:00: should not [place] 00 be chewed or crushed. (Same as: [...] clementine 7-26 (Same as: l 14:00: Arimidex) [place] [facility] 1: [facility] [...] oria 7-26 cap, l 14:00: Route: PO, [place] 00 Drug form: DRC, Daily, Dosing Weight [...] WASTE: F/P - Black; E Yellow omeprazole 2-0 No 20 mg, 1 Mem oria 7-26 cap, l 14:00: Route: PO, [place] 00 Drug form: DRC, Daily, Dosing Weight 63.636, kg, Start date: 06/14/22 9:00:00 CDT, Duration: 30 day, Stop date: 07/13/22 9:00:00 CDT Protonix 2021-0 No Notes: Memoria 7-26 Tablet l 14:00: should not [place] 00 be chewed or crushed. (Same as: Protonix) anastrozole No Notes: Sanya clementine 7-26 (Same as: l 14:00: Arimidex) [place] [facility]: [facility] -- Refer to safe handling procedure PPE Matrix WASTE: F/P - Black; E Yellow omeprazole No 20 mg, 1 Mem oria 7-26 cap, l 14:00: Route: PO, [place] 00 Drug form: DRC, Daily, Dosing Weight 63.636, kg, Start date: 06/14/22 9:00:00 CDT, Duration: 30 day, Stop date: 07/13/22 9:00:00 CDT Protonix 2021-0 No Notes: Memoria 7-26 Tablet l 14:00: should not [place] 00 be chewed or crushed. (Same as: Protonix) anastrozole No Notes: Sanya clementine 7-26 (Same as: l 14:00: Arimidex) [facility]: [facility] -- Refer to safe handling procedure PPE Matrix WASTE: F/P - Black; E Yellow omeprazole 2021-0 No 20 mg, 1 Mem oria 7-26 cap, l 14:00: Route: PO, [place] 00 Drug form: DRC, Daily, Dosing Weight 63.636, kg, Start date: 06/14/22 9:00:00 CDT, Duration: 30 day, Stop date: 07/13/22 9:00:00 CDT Protonix 2021-0 No Notes: Memoria 7-26 Tablet l 14:00: should not [place] 00 be chewed or crushed. (Same as: Protonix) anastrozole No Notes: Sanya clementine 7-26 (Same as: l 14:00: Arimidex) [place] [facility] 1: [facility] [...] Memoria 7-26 Tablet l 14:00: should not [place] 00 be chewed or crushed. (Same as: Protonix) anastrozole 0 No Notes: Sanya clementine 7-26 (Same as: l 14:00: Arimidex) [place] [facility] 1: [facility] [...] Memoria 7-26 Tablet l 14:00: should not [place] 00 be chewed or crushed. (Same as: Protonix) anastrozole 0 No Notes: Sanya clementine 7-26 (Same as: l 14:00: Arimidex) [place] [facility] 1: [facility] -- Refer to safe handling procedure PPE Matrix WASTE: F/P - Black; E Yellow omeprazole 2021-0 No 20 mg, 1 Mem oria 7-26 cap, l 14:00: Route: PO, [place] 00 Drug form: DRC, Daily, Dosing Weight 63.636, kg, Start date: 06/14/22 9:00:00 CDT, Duration: 30 day, Stop date: 07/13/22 9:00:00 CDT Protonix 2-0 No Notes: Memoria 7-26 Tablet l 14:00: should not [place] 00 be chewed or crushed. (Same as: Protonix) anastrozole 2022-0 No Notes: Sanya clementine 7-26 (Same as: l 14:00: Arimidex) [place] [facility]: [facility] -- Refer to safe handling procedure PPE Matrix WASTE: F/P - Black; E Yellow omeprazole 0 No 20 mg, 1 Mem oria 7-26 cap, l 14:00: Route: PO, [place] 00 Drug form: DRC, Daily, Dosing Weight [...] oria 7-26 cap, l 14:00: Route: PO, [place] 00 Drug form: DRC, Daily, Dosing Weight [...] Memoria 7-26 Tablet l 14:00: should not [place] 00 be chewed or crushed. (Same as: Protonix) anastrozole 2021-0 No Notes: Sanya clementine 7-26 (Same as: l 14:00: Arimidex) [place] [facility] 1: [facility] -- Refer to safe handling procedure PPE Matrix WASTE: F/P - Black; E Yellow omeprazole 2021-0 No 20 mg, 1 Mem oria 7-26 cap, l 14:00: Route: PO, [place] 00 Drug form: DRC, Daily, Dosing Weight 63.636, kg, Start date: 06/14/22 9:00:00 CDT, Duration: 30 day, Stop date: 07/13/22 9:00:00 CDT Protonix 2022-0 No Notes: Memoria 7-26 Tablet l 14:00: should not [place] 00 be chewed or crushed. (Same as: Protonix) anastrozole 2021-0 No Notes: Sanya clementine 7-26 (Same as: l 14:00: Arimidex) [place] [facility] 1: [facility] -- Refer to safe handling procedure PPE Matrix WASTE: F/P - Black; E Yellow omeprazole 2-0 No 20 mg, 1 Mem oria 7-26 [...] clementine 7-26 (Same as: l 14:00: Arimidex) [place] [facility] 1: [facility] -- Refer to safe handling procedure PPE Matrix WASTE: F/P - Black; E Yellow omeprazole 2022-0 No 20 mg, 1 Mem oria 7-26 cap, l 14:00: Route: PO, [place] 00 Drug form: DRC, Daily, Dosing Weight 63.636, kg, Start date: 06/14/22 9:00:00 CDT, Duration: 30 day, Stop date: 07/13/22 9:00:00 CDT Protonix 2021-0 No Notes: Memoria 7-26 Tablet l 14:00: should not [place] 00 be chewed or crushed. (Same as: Protonix) anastrozole No Notes: Sanya clementine 7-26 (Same as: l 14:00: Arimidex) [place] [facility] 1: [facility] [...] Memoria 7-26 Tablet l 14:00: should not [place] 00 be chewed or crushed. (Same as: Protonix) anastrozole No Notes: Sanya clementine 7-26 (Same as: l 14:00: Arimidex) [place] [facility] 1: [facility]ardous [...] clementine 7-26 (Same as: l 14:00: Arimidex) [place] [facility] 1: [facility] -- Refer to safe handling procedure PPE Matrix WASTE: F/P - Black; E Yellow omeprazole 2021-0 No 20 mg, 1 Mem oria 7-26 cap, l 14:00: Route: PO, [place] 00 Drug form: DRC, Daily, Dosing Weight 63.636, kg, Start date: 06/14/22 9:00:00 CDT, Duration: 30 day, Stop date: 07/13/22 9:00:00 CDT Protonix 2-0 No Notes: Memoria 7-26 Tablet l 14:00: should not [place] 00 be chewed or crushed. (Same as: Protonix) anastrozole 2021-0 No Notes: Sanya clementine 7-26 (Same as: l 14:00: Arimidex) [place] [facility] 1: [facility] Hazardous [...] WASTE: F/P - Black; E Yellow omeprazole 2-0 No 20 mg, 1 Mem oria 7-26 cap, l 14:00: Route: PO, [place] 00 Drug form: DRC, Daily, Dosing Weight 63.636, kg, Start date: 06/14/22 9:00:00 CDT, Duration: 30 day, Stop date: 07/13/22 9:00:00 CDT Protonix 2022-0 No Notes: Memoria 7-26 Tablet l 14:00: should not [place] 00 be chewed or crushed. (Same as: Protonix) anastrozole 0 No Notes: Sanya clementine 7-26 (Same as: l 14:00: Arimidex) [place] [facility]: [facility] Hazardous [...] clementine 7-26 (Same as: l 14:00: Arimidex) [place] [facility] 1: [facility] -- Refer to safe handling procedure PPE Matrix WASTE: F/P - Black; E Yellow omeprazole 2021-0 No 20 mg, 1 Mem oria 7-26 cap, l 14:00: Route: PO, [place] 00 Drug form: DRC, Daily, Dosing Weight 63.636, kg, Start date: 06/14/22 9:00:00 CDT, Duration: 30 day, Stop date: 07/13/22 9:00:00 CDT Protonix 2021-0 No Notes: Memoria 7-26 Tablet l 14:00: should not [place] 00 be chewed or crushed. (Same as: Protonix) anastrozole 2021-0 No Notes: Sanya clementine 7-26 (Same as: l 14:00: Arimidex) [place] 00 [facility] 1: [facility] -- Refer to safe handling procedure PPE Matrix WASTE: F/P - Black; E Yellow omeprazole 2021-0 No 20 mg, 1 Mem oria 7-26 cap, l 14:00: Route: PO, [place] 00 Drug form: DRC, Daily, Dosing Weight 63.636, kg, Start date: 06/14/22 9:00:00 CDT, Duration: 30 day, Stop date: 07/13/22 9:00:00 CDT Protonix 2021-0 No Notes: Memoria 7-26 Tablet l 14:00: should not [place] 00 be chewed or crushed. (Same as: Protonix) anastrozole No Notes: Sanya clementine 7-26 (Same as: l 14:00: Arimidex) [place] [facility] 1: [facility] -- Refer to safe handling procedure PPE Matrix WASTE: F/P - Black; E Yellow omeprazole 2021-0 No 20 mg, 1 Mem oria 7-26 cap, l 14:00: Route: PO, [place] 00 Drug form: DRC, Daily, Dosing Weight 63.636, kg, Start date: 06/14/22 9:00:00 CDT, Duration: 30 day, Stop date: 07/13/22 9:00:00 CDT Protonix 2021-0 No Notes: Memoria 7-26 Tablet l 14:00: should not [place] 00 be chewed or crushed. (Same as: Protonix) anastrozole No Notes: Sanya clementine 7-26 (Same as: l 14:00: Arimidex) [place] [facility] 1: [facility] -- Refer to safe handling procedure PPE Matrix WASTE: F/P - Black; E Yellow omeprazole 2021-0 No 20 mg, 1 Mem oria 7-26 cap, l 14:00: Route: PO, [place] 00 Drug form: DRC, Daily, Dosing Weight 63.636, kg, Start date: 06/14/22 9:00:00 CDT, Duration: 30 day, Stop date: 07/13/22 9:00:00 CDT Protonix 2021-0 No Notes: Memoria 7-26 Tablet l 14:00: should not [place] 00 be chewed or crushed. (Same as: Protonix) anastrozole 0 No Notes: Sanya clementine 7-26 (Same as: l 14:00: Arimidex) [place] [facility] 1: [facility] -- Refer to safe handling procedure PPE Matrix WASTE: F/P - Black; E Yellow omeprazole 0 No 20 mg, 1 Mem oria 7-26 cap, l 14:00: Route: PO, [place] 00 Drug form: DRC, Daily, Dosing Weight 63.636, kg, Start date: 06/14/22 9:00:00 CDT, Duration: 30 day, Stop date: 07/13/22 9:00:00 CDT Protonix 2021-0 No Notes: Memoria 7-26 Tablet l 14:00: should not [place] 00 be chewed or crushed. (Same as: Protonix) anastrozole No Notes: Sanya clementine 7-26 (Same as: l 14:00: Arimidex) [place] 00 [facility] 1: [facility] -- Refer to safe handling procedure PPE Matrix WASTE: F/P - Black; E Yellow omeprazole 2021-0 No 20 mg, 1 Mem oria 7-26 cap, l 14:00: Route: PO, [place] 00 Drug form: DRC, Daily, Dosing Weight 63.636, kg, Start date: 06/14/22 9:00:00 CDT, Duration: 30 day, Stop date: 07/13/22 9:00:00 CDT Protonix 2021-0 No Notes: Memoria 7-26 Tablet l 14:00: should not [place] 00 be chewed or crushed. (Same as: Protonix) anastrozole No Notes: Sanya clementine 7-26 (Same as: l 14:00: Arimidex) [place] [facility] 1: [facility] [...] chewed or crushed. (Same as: Protonix) anastrozole 2022-0 No Notes: Sanya clementine 7-26 (Same as: l 14:00: Arimidex) [place] 00 [facility] 1: [facility] -- Refer to safe handling procedure PPE Matrix WASTE: F/P - Black; E Yellow omeprazole 2-0 No 20 mg, 1 Mem oria 7-26 [...] clementine 7-26 (Same as: l 14:00: Arimidex) [place] [facility] 1: [facility] -- Refer to safe handling procedure PPE Matrix WASTE: F/P - Black; E Yellow omeprazole 2-0 No 20 mg, 1 Mem oria 7-26 cap, l 14:00: Route: PO, [place] 00 Drug form: DRC, Daily, Dosing Weight 63.636, kg, Start date: 06/14/22 9:00:00 CDT, Duration: 30 day, Stop date: 07/13/22 9:00:00 CDT Protonix 2-0 No Notes: Memoria 7-26 Tablet l 14:00: should not [place] 00 be chewed or crushed. (Same as: Protonix) anastrozole 2021-0 No Notes: Sanya clementine 7-26 (Same as: l 14:00: Arimidex) [place] [facility] 1: [facility] -- Refer to safe handling procedure PPE Matrix WASTE: F/P - Black; E Yellow omeprazole 2022-0 No 20 mg, 1 Mem oria 7-26 cap, l 14:00: Route: PO, [place] 00 Drug form: DRC, Daily, Dosing Weight [...] oria 7-26 cap, l 14:00: Route: PO, [place] 00 Drug form: DRC, Daily, Dosing Weight 63.636, kg, Start date: 06/14/22 9:00:00 CDT, Duration: 30 day, Stop date: 07/13/22 9:00:00 CDT Protonix 2021-0 No Notes: Memoria 7-26 Tablet l 14:00: should not [place] 00 be chewed or crushed. (Same as: Protonix) anastrozole No Notes: Sanya clementine 7-26 (Same as: l 14:00: Arimidex) [place] [facility] 1: [facility] -- Refer to safe handling procedure PPE Matrix WASTE: F/P - Black; E Yellow omeprazole 2021-0 No 20 mg, 1 Mem oria 7-26 cap, l 14:00: Route: PO, [place] 00 Drug form: DRC, Daily, Dosing Weight 63.636, kg, Start date: 06/14/22 9:00:00 CDT, Duration: 30 day, Stop date: 07/13/22 9:00:00 CDT Protonix 2-0 No Notes: Memoria 7-26 Tablet l 14:00: should not [place] 00 be chewed or crushed. (Same as: Protonix) anastrozole 2021-0 No Notes: Sanya clementine 7-26 (Same as: l 14:00: Arimidex) [place] [facility] 1: [facility] [...] Memoria 7-26 Tablet l 14:00: should not [place] 00 be chewed or crushed. (Same as: Protonix) anastrozole No Notes: Sanya clementine 7-26 (Same as: l 14:00: Arimidex) [place] [facility] 1: [facility] -- Refer to safe handling procedure PPE Matrix WASTE: F/P - Black; E Yellow omeprazole No 20 mg, 1 Mem oria 7-26 cap, l 14:00: Route: PO, [place] 00 Drug form: DRC, Daily, Dosing Weight [...] oria 7-26 cap, l 14:00: Route: PO, [place] 00 Drug form: DRC, Daily, Dosing Weight [...] oria 7-26 cap, l 14:00: Route: PO, [place] 00 Drug form: DRC, Daily, Dosing Weight 63.636, kg, Start date: 06/14/22 9:00:00 CDT, Duration: 30 day, Stop date: 07/13/22 9:00:00 CDT Protonix 2021-0 No Notes: Memoria 7-26 Tablet l 14:00: should not [place] 00 be chewed or crushed. (Same as: Protonix) anastrozole 0 No Notes: Sanya clementine 7-26 (Same as: l 14:00: Arimidex) [place] [facility] 1: [facility] -- Refer to safe handling procedure PPE Matrix WASTE: F/P - Black; E Yellow omeprazole 2021-0 No 20 mg, 1 Mem oria 7-26 cap, l 14:00: Route: PO, [place] 00 Drug form: DRC, Daily, Dosing Weight [...] oria 7-26 cap, l 14:00: Route: PO, [place] 00 Drug form: DRC, Daily, Dosing Weight 63.636, kg, Start date: 06/14/22 9:00:00 CDT, Duration: 30 day, Stop date: 07/13/22 9:00:00 CDT Protonix 2-0 No Notes: Memoria 7-26 Tablet l 14:00: should not [place] 00 be chewed or crushed. (Same as: Protonix) anastrozole 0 No Notes: Sanya clementine 7-26 (Same as: l 14:00: Arimidex) [place] [facility] 1: [facility] -- Refer to safe handling procedure PPE Matrix WASTE: F/P - Black; E Yellow omeprazole 2021-0 No 20 mg, 1 Mem oria 7-26 cap, l 14:00: Route: PO, [place] 00 Drug form: DRC, Daily, Dosing Weight 63.636, kg, Start date: 06/14/22 9:00:00 CDT, Duration: 30 day, Stop date: 07/13/22 9:00:00 CDT Protonix 2021-0 No Notes: Memoria 7-26 Tablet l 14:00: should not [place] 00 be chewed or crushed. (Same as: Protonix) anastrozole No Notes: Sanya clementine 7-26 (Same as: l 14:00: Arimidex) [place] [facility] 1: [facility] [...] 7-26 (Same as: l 14:00: Arimidex) [place] [facility] 1: [facility] -- Refer to safe handling procedure PPE Matrix WASTE: F/P - Black; E Yellow omeprazole 2-0 No 20 mg, 1 Mem oria 7-26 cap, l 14:00: Route: PO, [place] 00 Drug form: DRC, Daily, Dosing Weight 63.636, kg, Start date: 06/14/22 9:00:00 CDT, Duration: 30 day, Stop date: 07/13/22 9:00:00 CDT Protonix No Notes: Memoria 7-26 Tablet l 14:00: should not [place] 00 be chewed or crushed. (Same as: Protonix) anastrozole No Notes: Sanya clementine 7-26 (Same as: l 14:00: Arimidex) [place] [facility] 1: [facility] [...] Memoria 7-26 Tablet l 14:00: should not [place] 00 be chewed or crushed. (Same as: [...] Memoria 7-26 Tablet l 14:00: should not [place] 00 be chewed or crushed. (Same as: Protonix) atorvastati No Notes: Sanya clementine n 7-26 (Same as: l 02:00: Lipitor) atorvastati No Notes: Sanya clementine n 7-26 (Same as: l 02:00: Lipitor) [place] 00 atorvastati No Notes: Sanya clementine n 7- (Same as: l 02:00: Lipitor) [place] 00 atorvastati No Notes: Sanya clementine n 7 (Same as: l 02:00: Lipitor) [place] 00 atorvastati No Notes: Sanya clementine n 7 (Same as: l 02:00: Lipitor) [place] 00 atorvastati No Notes: Snaya clementine n 7 (Same as: l 02:00: Lipitor) [place] 00 atorvastati No Notes: Sanya clementine n 7 (Same as: l 02:00: Lipitor) [place] 00 atorvastati No Notes: Sanya clementine n 7 (Same as: l 02:00: Lipitor) [place] 00 atorvastati No Notes: Sanya clementine n 7 (Same as: l 02:00: Lipitor) [place] 00 atorvastati No Notes: Sanya clementine n 7 (Same as: l 02:00: Lipitor) [place] 00 atorvastati No Notes: Sanya clementine n 7 (Same as: l 02:00: Lipitor) [place] 00 atorvastati No Notes: Sanya clementine n 7 (Same as: l 02:00: Lipitor) [place] 00 atorvastati No Notes: Sanya clementine n 7- (Same as: l 02:00: Lipitor) [place] 00 atorvastati No Notes: Sanya clementine n 7- (Same as: l 02:00: Lipitor) [place] 00 atorvastati No Notes: Sanya clementine n 7- (Same as: l 02:00: Lipitor) [place] 00 atorvastati No Notes: Sanya clementine n 7- (Same as: l 02:00: Lipitor) [place] 00 atorvastati No Notes: Sanya clementine n 7- (Same as: l 02:00: Lipitor) [place] 00 atorvastati No Notes: Sanya clementine n 7 (Same as: l 02:00: Lipitor) [place] 00 atorvastati No Notes: Sanya clementine n 7 (Same as: l 02:00: Lipitor) [place] 00 atorvastati No Notes: Sanya clementine n 7 (Same as: l 02:00: Lipitor) [place] 00 atorvastati No Notes: Sanya clementine n 7 (Same as: l 02:00: Lipitor) [place] 00 atorvastati No Notes: Sanya clementine n 7 (Same as: l 02:00: Lipitor) [place] 00 atorvastati No Notes: Sanya clementine n 7 (Same as: l 02:00: Lipitor) [place] 00 atorvastati No Notes: Sanya clementine n 7 (Same as: l 02:00: Lipitor) [place] 00 atorvastati No Notes: Sanya clementine n 7 (Same as: l 02:00: Lipitor) [place] 00 atorvastati No Notes: Sanya clementine n 7 (Same as: l 02:00: Lipitor) [place] 00 atorvastati No Notes: Sanya clementine n 7 (Same as: l 02:00: Lipitor) [place] 00 atorvastati No Notes: Sanya clementine n 7- (Same as: l 02:00: Lipitor) [place] atorvastati No Notes: Sanya clementine n 7 (Same as: l 02:00: Lipitor) [place] 00 atorvastati No Notes: Sanya clementine n 7 (Same as: l 02:00: Lipitor) [place] 00 atorvastati No Notes: Sanya clementine n 7- (Same as: l 02:00: Lipitor) [place] 00 atorvastati No Notes: Sanya clementine n 7 (Same as: l 02:00: Lipitor) [place] atorvastati No Notes: Sanya clementine n 7 (Same as: l 02:00: Lipitor) [place] 00 atorvastati No Notes: Sanya clementine n 7 (Same as: l 02:00: Lipitor) [place] 00 atorvastati No Notes: Sanya clementine n 7 (Same as: l 02:00: Lipitor) [place] 00 atorvastati No Notes: Sanya clementine n 7 (Same as: l 02:00: Lipitor) [place] 00 atorvastati No Notes: Sanya clementine n 7 (Same as: l 02:00: Lipitor) [place] 00 atorvastati No Notes: Sanya clementine n 06-14 (Same as: l 02:00: Lipitor) [place] 00 atorvastati No Notes: Sanya clementine n 06-14 (Same as: l 02:00: Lipitor) [place] 00 atorvastati No Notes: Sanya clementine n 7 (Same as: l 02:00: Lipitor) [place] 00 atorvastati No Notes: Sanya clementine n 7 (Same as: l 02:00: Lipitor) [place] 00 atorvastati No Notes: Sanya clementine n 7 (Same as: l 02:00: Lipitor) [place] 00 atorvastati No Notes: Sanya clementine n 7 (Same as: l 02:00: Lipitor) [place] atorvastati No Notes: Sanya clementine n 7 (Same as: l 02:00: Lipitor) [place] 00 atorvastati No Notes: Sanya clementine n 7 (Same as: l 02:00: Lipitor) [place] 00 atorvastati No Notes: Sanya clementine n 7 (Same as: l 02:00: Lipitor) [place] 00 atorvastati No Notes: Sanya clementine n 7 (Same as: l 02:00: Lipitor) [place] atorvastati No Notes: Sanya clementine n 7-26 (Same as: l 02:00: Lipitor) [place] 00 atorvastati No Notes: Sanya clementine n 7- (Same as: l 02:00: Lipitor) [place] 00 atorvastati No Notes: Sanya clementine n 7-26 (Same as: l 02:00: Lipitor) [place] 00 atorvastati No Notes: Sanya clementine n 7-26 (Same as: l 02:00: Lipitor) [place] 00 atorvastati No Notes: Sanya clementine n 7-26 (Same as: l 02:00: Lipitor) [place] atorvastati No Notes: Sanya clementine n 7- (Same as: l 02:00: Lipitor) [place] 00 docusate No Notes: Memoria 7-25 (Same as: l 14:00: Colace) [place] 00 (Do Not Crush) Saline No Notes: [...] 0.9% 7-25 (Same as: l 14:00: BD [place] 00 Posiflush) docusate No Notes: [facility] 7-25 (Same as: l 14:00: Colace) [place] 00 (Do Not Crush) Saline No Notes: [facility] Flush 0.9% 7-25 (Same as: l 14:00: BD [place] 00 Posiflush) docusate No Notes: [facility] 7-25 (Same as: l 14:00: Colace) [place] 00 (Do Not Crush) Saline No Notes: [facility] Flush 0.9% 7-25 (Same as: l 14:00: BD [place] 00 Posiflush) docusate No Notes: [facility] 7-25 (Same as: l 14:00: Colace) [place] 00 (Do Not Crush) Saline No Notes: [facility] Flush 0.9% 7-25 (Same as: l 14:00: BD [place] 00 Posiflush) docusate No Notes: [facility] 7-25 (Same as: l 14:00: Colace) [place] 00 (Do Not Crush) Saline No Notes: [facility] Flush 0.9% 7-25 (Same as: l 14:00: BD [place] 00 Posiflush) docusate No Notes: [facility] 7-25 (Same as: l 14:00: Colace) [place] 00 (Do Not Crush) Saline No Notes: [facility] Flush 0.9% 7-25 (Same as: l 14:00: BD [place] 00 Posiflush) docusate No Notes: [facility] 7-25 (Same as: l 14:00: Colace) [place] 00 (Do Not Crush) Saline No Notes: [facility] Flush 0.9% 7-25 (Same as: l 14:00: BD [place] 00 Posiflush) docusate No Notes: [facility] 7-25 (Same as: l 14:00: Colace) [place] 00 (Do Not Crush) Saline No Notes: [facility] Flush 0.9% 7-25 (Same as: l 14:00: BD [place] 00 Posiflush) docusate No Notes: [facility] 7-25 (Same as: l 14:00: Colace) [place] 00 (Do Not Crush) Saline No Notes: [facility] Flush 0.9% 7-25 (Same as: l 14:00: BD [place] 00 Posiflush) docusate No Notes: [facility] 7-25 (Same as: l 14:00: Colace) [place] 00 (Do Not Crush) Saline No Notes: [facility] Flush 0.9% 7-25 (Same as: l 14:00: BD [place] 00 Posiflush) docusate No Notes: [facility] 7-25 [...] [facility] 7-25 (Same as: l 14:00: Colace) [place] 00 (Do Not Crush) Saline No Notes: [facility] Flush 0.9% 7-25 (Same as: l 14:00: BD [place] 00 Posiflush) docusate No Notes: [facility] 7-25 (Same as: l 14:00: Colace) [place] 00 (Do Not Crush) Saline No Notes: [facility] Flush 0.9% 7-25 (Same as: l 14:00: BD [place] 00 Posiflush) docusate No Notes: [facility] 7-25 (Same as: l 14:00: Colace) [place] 00 (Do Not Crush) Saline No Notes: [facility] Flush 0.9% 7-25 (Same as: l 14:00: BD [place] 00 Posiflush) docusate No Notes: [facility] 7-25 (Same as: l 14:00: Colace) [place] 00 (Do Not Crush) Saline No Notes: [facility] Flush 0.9% 7-25 (Same as: l 14:00: BD [place] 00 Posiflush) docusate No Notes: [facility] 7-25 (Same as: l 14:00: Colace) [place] 00 (Do Not Crush) Saline No Notes: [facility] Flush 0.9% 7-25 (Same as: l 14:00: BD [place] 00 Posiflush) docusate No Notes: [facility] 7-25 (Same as: l 14:00: Colace) [place] 00 (Do Not Crush) Saline No Notes: [facility] Flush 0.9% 7-25 (Same as: l 14:00: BD [place] 00 Posiflush) docusate No Notes: [facility] 7-25 (Same as: l 14:00: Colace) [place] 00 (Do Not Crush) Saline No Notes: [facility] Flush 0.9% 7-25 (Same as: l 14:00: BD [place] 00 Posiflush) docusate No Notes: [facility] 7-25 (Same as: l 14:00: Colace) [place] 00 (Do Not Crush) Saline No Notes: [facility] Flush 0.9% 7-25 (Same as: l 14:00: BD [place] 00 Posiflush) docusate No Notes: [facility] 7-25 [...] [facility] 7-25 (Same as: l 14:00: Colace) [place] 00 (Do Not Crush) Saline No Notes: [...] [facility] 7-25 (Same as: l 14:00: Colace) [place] 00 (Do Not Crush) Saline No Notes: [facility] Flush 0.9% 7-25 (Same as: l 14:00: BD [place] 00 Posiflush) docusate No Notes: [facility] 7-25 (Same as: l 14:00: Colace) [place] 00 (Do Not Crush) Saline No Notes: [facility] Flush 0.9% 7-25 (Same as: l 14:00: BD [place] 00 Posiflush) docusate No Notes: [facility] 7-25 (Same as: l 14:00: Colace) [place] 00 (Do Not Crush) Saline No Notes: [facility] Flush 0.9% 7-25 (Same as: l 14:00: BD [place] 00 Posiflush) docusate No Notes: [facility] 7-25 (Same as: l 14:00: Colace) [place] 00 (Do Not Crush) Saline No Notes: [facility] Flush 0.9% 7-25 (Same as: l 14:00: BD [place] 00 Posiflush) docusate No Notes: [facility] 7-25 (Same as: l 14:00: Colace) [place] 00 (Do Not Crush) Saline No Notes: [facility] Flush 0.9% 7-25 (Same as: l 14:00: BD [place] 00 Posiflush) docusate No Notes: [facility] 7-25 (Same as: l 14:00: Colace) [place] 00 (Do Not Crush) Saline No Notes: [facility] Flush 0.9% 7-25 (Same as: l 14:00: BD [place] 00 Posiflush) docusate No Notes: [facility] 7-25 (Same as: l 14:00: Colace) [place] 00 (Do Not Crush) Saline No Notes: [facility] Flush 0.9% 7-25 (Same as: l 14:00: BD [place] 00 Posiflush) docusate No Notes: [facility] 7-25 (Same as: l 14:00: Colace) [place] 00 (Do Not Crush) Saline No Notes: [facility] Flush 0.9% 7-25 (Same as: l 14:00: BD [place] 00 Posiflush) docusate No Notes: [facility] 7-25 (Same as: l 14:00: Colace) [place] 00 (Do Not Crush) Saline No Notes: [facility] Flush 0.9% 7-25 (Same as: l 14:00: BD [place] 00 Posiflush) docusate No Notes: [facility] 7-25 (Same as: l 14:00: Colace) [place] 00 (Do Not Crush) Saline No Notes: [...] 0.9% 7-25 (Same as: l 14:00: BD [place] 00 Posiflush) docusate No Notes: [facility] 7-25 [...] [facility]oria 7-25 (Same as: l 14:00: Colace) [place] 00 (Do Not Crush) Saline No Notes: [facility] Flush 0.9% 7-25 (Same as: l 14:00: BD [place] 00 Posiflush) docusate No Notes: [facility] 7-25 [...] 0.9% 7-25 (Same as: l 14:00: BD [place] 00 Posiflush) docusate No Notes: [facility] 7-25 (Same as: l 14:00: Colace) [place] 00 (Do Not Crush) Saline No Notes: [facility] Flush 0.9% 7-25 (Same as: l 14:00: BD [place] 00 Posiflush) docusate No Notes: [facility] 7-25 (Same as: l 14:00: Colace) [place] 00 (Do Not Crush) Saline No Notes: [...] [facility]oria 7-25 (Same as: l 14:00: Colace) [place] 00 (Do Not Crush) Saline No Notes: [...] PO, l oral tablet 13:59: Bedtime [facility] hydrochloro No 12.5 mg = M em[facility] thiazide 7-25 1 tab, PO, l 12.5 mg 13:59: Daily [place] oral tablet omeprazole No 20 mg = 1 Me moria 20 mg oral 7-25 cap, PO, l delayed 13:59: Daily [place] release capsule losartan No 100 mg = [...] tab, PO, l oral tablet 13:59: Bedtime [facility] hydrochloro No 12.5 mg = M emoria thiazide 7-25 1 tab, PO, l 12.5 mg 13:59: Daily [place] oral tablet 00 omeprazole No 20 mg = 1 Me moria 20 mg oral 7-25 cap, PO, l delayed 13:59: Daily [place] release capsule losartan No 100 mg = [...] PO, l oral tablet 13:59: Bedtime Her [facility] hydrochloro No 12.5 mg = M emoria [...] tab, PO, l oral tablet 13:59: Bedtime [facility] hydrochloro No 12.5 mg = M emoria thiazide 7-25 1 tab, PO, l 12.5 mg 13:59: Daily [place] oral tablet 00 omeprazole No 20 mg = 1 Me moria 20 mg oral 7-25 cap, PO, l delayed 13:59: Daily [place] release 00 capsule losartan No 100 mg = 1 Mem oria 100 mg oral 7-25 tab, PO, l tablet 13:59: Daily [place] 00 rosuvastati Yes 5 mg = 1 [...] tab, PO, l 12.5 mg 13:59: Daily [place] oral tablet 00 omeprazole No 20 mg = 1 Me moria 20 mg oral 7-25 cap, PO, l delayed 13:59: Daily [place] release 00 capsule losartan No 100 mg = 1 Mem oria 100 mg oral 7-25 tab, PO, l tablet 13:59: Daily [place] 00 rosuvastati Yes 5 mg = 1 Me moria n 5 mg oral 7-25 tab, PO, l tablet 13:59: Bedtime anastrozole Yes 1 mg = 1 Me moria 1 mg oral 7-25 tab, PO, l tablet 13:59: Daily amLODIPine No 5 mg = 1 Mem oria 5 mg oral 7-25 tab, PO, l tablet 13:59: Daily [place] atorvastati No 40 mg = 1 M emoria n 40 mg 7-25 tab, PO, l oral tablet 13:59: Bedtime [facility] hydrochloro No 12.5 mg = M [facility] thiazide 7-25 1 tab, PO, l 12.5 mg 13:59: Daily [place] oral tablet 00 omeprazole No 20 mg = 1 Me moria 20 mg oral 7-25 cap, PO, l delayed 13:59: Daily [place] release 00 capsule losartan No 100 mg = 1 Mem oria 100 mg oral 7-25 tab, PO, l tablet 13:59: Daily [place] 00 rosuvastati Yes 5 mg = 1 [...] 7-25 cap, PO, l delayed 13:59: Daily [place] release capsule losartan No 100 mg = 1 Mem [facility]ria 100 mg oral 7-25 tab, PO, l tablet 13:59: Daily [place] 00 rosuvastati Yes 5 mg = 1 [...] 7-25 cap, PO, l delayed 13:59: Daily [place] release 00 capsule losartan No 100 mg = 1 Mem oria 100 mg oral 7-25 tab, PO, l tablet 13:59: Daily [place] rosuvastati Yes 5 mg = 1 Me [...] 7-25 cap, PO, l delayed 13:59: Daily [place] release capsule losartan No 100 mg = [...] PO, l oral tablet 13:59: Bedtime [facility] hydrochloro No 12.5 mg = M [facility] thiazide 7-25 1 tab, PO, l 12.5 mg 13:59: Daily [place] oral tablet 00 omeprazole No 20 mg = 1 Me [facility] 20 mg oral 7-25 cap, PO, l delayed 13:59: Daily [place] release 00 capsule losartan No 100 mg [...] PO, l oral tablet 13:59: Bedtime Her [facility] hydrochloro No 12.5 mg = M [place] thiazide 7-25 1 tab, PO, l 12.5 mg 13:59: Daily [place] oral tablet omeprazole No 20 mg = 1 Me [facility] 20 mg oral 7-25 cap, PO, l delayed 13:59: Daily [place] release capsule losartan No 100 mg = [...] PO, l oral tablet 13:59: Bedtime [facility] hydrochloro No 12.5 mg = M [place] thiazide 7-25 1 tab, PO, l 12.5 mg 13:59: Daily [place] oral tablet 00 omeprazole No 20 mg [...] PO, l oral tablet 13:59: Bedtime [facility] hydrochloro No 12.5 mg = M [place] thiazide 7-25 1 tab, PO, l 12.5 mg 13:59: Daily [place] oral tablet omeprazole No 20 mg = 1 Me mor[place] 20 mg oral 7-25 cap, PO, l delayed 13:59: Daily [place] release capsule losartan No 100 mg = [...] PO, l oral tablet 13:59: Bedtime Her [facility] hydrochloro No 12.5 mg = M emoria [...] tab, PO, l oral tablet 13:59: Bedtime [facility] hydrochloro No 12.5 mg = M [place] thiazide 7-25 1 tab, PO, l 12.5 mg 13:59: Daily [place] oral tablet omeprazole No 20 mg = [...] PO, l oral tablet 13:59: Bedtime [facility] hydrochloro No 12.5 mg = M [place] thiazide 7-25 1 tab, PO, l 12.5 mg 13:59: Daily [place] oral tablet omeprazole No 20 mg = 1 Me moria 20 mg oral 7-25 cap, PO, l delayed 13:59: Daily [place] release capsule losartan No 100 mg = [...] PO, l oral tablet 13:59: Bedtime Her [facility] hydrochloro No 12.5 mg = M [place] thiazide 7-25 1 tab, PO, l 12.5 mg 13:59: Daily [place] oral tablet omeprazole No 20 mg = 1 Me mor[facility] 20 mg oral 7-25 cap, PO, l delayed 13:59: Daily [place] release capsule losartan No 100 mg = [...] tab, PO, l oral tablet 13:59: Bedtime [facility] hydrochloro No 12.5 mg = M emoria [...] tab, PO, l 12.5 mg 13:59: Daily [place] oral tablet omeprazole No 20 mg = 1 Me [facility] 20 mg oral 7-25 cap, PO, l delayed 13:59: Daily [place] release capsule losartan No 100 mg = [...] PO, l delayed 13:59: Daily [place] release capsule losartan No 100 mg = 1 Mem oria 100 mg oral 7-25 tab, PO, l tablet 13:59: Daily [place] 00 rosuvastati Yes 5 mg = 1 [...] PO, l oral tablet 13:59: Bedtime Her [facility] hydrochloro No 12.5 mg = M [place] thiazide 7-25 1 tab, PO, l 12.5 mg 13:59: Daily [place] oral tablet omeprazole No 20 mg = 1 Me [place] 20 mg oral 7-25 cap, PO, l delayed 13:59: Daily [place] release capsule losartan No 100 mg = 1 Mem oria 100 mg oral 7-25 tab, PO, l tablet 13:59: Daily [place] 00 rosuvastati Yes 5 mg = 1 [...] PO, l oral tablet 13:59: Bedtime Her [facility] hydrochloro No 12.5 mg = M [place] thiazide 7-25 1 tab, PO, l 12.5 mg 13:59: Daily [place] oral tablet 00 omeprazole No 20 mg = 1 Me [place]ia 20 mg oral 7-25 cap, PO, l delayed 13:59: Daily [place] release capsule losartan No 100 mg = [...] PO, l oral tablet 13:59: Bedtime [facility] hydrochloro No 12.5 mg = M emoria [...] tab, PO, l oral tablet 13:59: Bedtime [facility] hydrochloro No 12.5 mg = M [place] thiazide 7-25 1 tab, PO, l 12.5 mg 13:59: Daily [place] oral tablet 00 omeprazole No 20 mg = 1 Me [place] 20 mg oral 7-25 cap, PO, l delayed 13:59: Daily [place] release capsule losartan No 100 mg = [...] tab, PO, l oral tablet 13:59: Bedtime [facility] hydrochloro No 12.5 mg = M emoria [...] tab, PO, l oral tablet 13:59: Bedtime [facility] hydrochloro No 12.5 mg = M [place] thiazide 7-25 1 tab, PO, l 12.5 mg 13:59: Daily [place] oral tablet 00 omeprazole No 20 mg = 1 Me [place]ia 20 mg oral 7-25 cap, PO, l delayed 13:59: Daily [place] release capsule losartan No 100 mg = [...] tab, PO, l oral tablet 13:59: Bedtime [facility] hydrochloro No 12.5 mg = M [place] thiazide 7-25 1 tab, PO, l 12.5 mg 13:59: Daily [place] oral tablet omeprazole No 20 mg = 1 Me moria 20 mg oral 7-25 cap, PO, l delayed 13:59: Daily [place] release capsule losartan No 100 mg = [...] tab, PO, l oral tablet 13:59: Bedtime [facility] hydrochloro No 12.5 mg = M [place] thiazide 7-25 1 tab, PO, l 12.5 mg 13:59: Daily [place] oral tablet 00 omeprazole No 20 mg [...] tab, PO, l oral tablet 13:59: Bedtime [facility] hydrochloro No 12.5 mg = M [place] thiazide 7-25 1 tab, PO, l 12.5 mg 13:59: Daily [place] oral tablet omeprazole No 20 mg = 1 Me [facility] 20 mg oral 7-25 cap, PO, l delayed 13:59: Daily [place] release capsule losartan No 100 mg = [...] tab, PO, l oral tablet 13:59: Bedtime [facility] hydrochloro No 12.5 mg = M [place] thiazide 7-25 1 tab, PO, l 12.5 mg 13:59: Daily [place] oral tablet omeprazole No 20 mg = 1 Me moria 20 mg oral 7-25 cap, PO, l delayed 13:59: Daily [place] release capsule losartan No 100 mg = 1 Mem oria 100 mg oral 7-25 tab, PO, l tablet 13:59: Daily [place] 00 rosuvastati Yes 5 mg = 1 [...] PO, l oral tablet 13:59: Bedtime Her [facility] hydrochloro No 12.5 mg = M [place] thiazide 7-25 1 tab, PO, l 12.5 mg 13:59: Daily [place] oral tablet omeprazole No 20 mg = 1 Me moria 20 mg oral 7-25 cap, PO, l delayed 13:59: Daily [place] release capsule losartan No 100 mg = 1 Mem oria 100 mg oral 7-25 tab, PO, l tablet 13:59: Daily [place] 00 rosuvastati Yes 5 mg = 1 [...] tab, PO, l 12.5 mg 13:59: Daily [place] oral tablet 00 omeprazole No 20 mg = 1 Me moria 20 mg oral 7-25 cap, PO, l delayed 13:59: Daily [place] release 00 capsule losartan No 100 mg = 1 Mem oria 100 mg oral 7-25 tab, PO, l tablet 13:59: Daily [place] 00 rosuvastati Yes 5 mg = 1 [...] PO, l oral tablet 13:59: Bedtime Her [facility] hydrochloro No 12.5 mg = M [place] thiazide 7-25 1 tab, PO, l 12.5 mg 13:59: Daily [place] oral tablet omeprazole No 20 mg = 1 Me moria 20 mg oral 7-25 cap, PO, l delayed 13:59: Daily [place] release capsule losartan No 100 mg = 1 Mem oria 100 mg oral 7-25 tab, PO, l tablet 13:59: Daily [place] 00 rosuvastati Yes 5 mg = 1 Me moria n 5 mg oral 7-25 tab, PO, l tablet 13:59: Bedtime anastrozole Yes 1 mg = 1 Me moria 1 mg oral 7-25 tab, PO, l tablet 13:59: Daily amLODIPine No 5 mg = 1 Mem oria 5 mg oral 7-25 tab, PO, l tablet 13:59: Daily [place] atorvastati No 40 mg = 1 M emoria n 40 mg 7-25 tab, PO, l oral tablet 13:59: Bedtime Her [facility] hydrochloro No 12.5 mg = M [place] thiazide 7-25 1 tab, PO, l 12.5 mg 13:59: Daily [place] oral tablet 00 omeprazole No 20 mg = 1 Me moria 20 mg oral 7-25 cap, PO, l delayed 13:59: Daily [place] release capsule losartan No 100 mg = 1 Mem oria 100 mg oral 7-25 tab, PO, l tablet 13:59: Daily [place] 00 rosuvastati Yes 5 mg = 1 [...] PO, l oral tablet 13:59: Bedtime Her [facility] hydrochloro No 12.5 mg = M [place] thiazide 7-25 1 tab, PO, l 12.5 mg 13:59: Daily [place] oral tablet 00 omeprazole No 20 mg = 1 Me moria 20 mg oral 7-25 cap, PO, l delayed 13:59: Daily [place] release capsule losartan No 100 mg = 1 Mem oria 100 mg oral 7-25 tab, PO, l tablet 13:59: Daily [place] 00 rosuvastati Yes 5 mg = 1 Me moria n 5 mg oral 7-25 tab, PO, l tablet 13:59: Bedtime anastrozole Yes 1 mg = 1 Me moria 1 mg oral 7-25 tab, PO, l tablet 13:59: Daily [place] 00 amLODIPine No 5 mg = 1 Mem oria 5 mg oral 7-25 tab, PO, l tablet 13:59: Daily [place] atorvastati No 40 mg = 1 M emoria n 40 mg 7-25 tab, PO, l oral tablet 13:59: Bedtime Her [facility] hydrochloro No 12.5 mg = M [place] thiazide 7-25 1 tab, PO, l 12.5 mg 13:59: Daily [place] oral tablet 00 omeprazole No 20 mg = 1 Me moria 20 mg oral 7-25 cap, PO, l delayed 13:59: Daily [place] release capsule losartan No 100 mg = 1 Mem oria 100 mg oral 7-25 tab, PO, l tablet 13:59: Daily [place] 00 rosuvastati Yes 5 mg = 1 [...] PO, l oral tablet 13:59: Bedtime Her [facility] hydrochloro No 12.5 mg = M [place]oria thiazide 7-25 1 tab, PO, l 12.5 mg 13:59: Daily [place] oral tablet omeprazole No 20 mg = 1 Me moria 20 mg oral 7-25 cap, PO, l delayed 13:59: Daily [place] release capsule losartan No 100 mg = [...] 7-25 tab, PO, l tablet 13:59: Daily [place] atorvastati No 40 mg = 1 M emoria n 40 mg 7-25 tab, PO, l oral tablet 13:59: Bedtime [facility] 00 hydrochloro No 12.5 mg = M [place] thiazide 7-25 1 tab, PO, l 12.5 mg 13:59: Daily [place] oral tablet 00 omeprazole No 20 mg = 1 Me moria 20 mg oral 7-25 cap, PO, l delayed 13:59: Daily [place] release capsule losartan No 100 mg = [...] PO, l oral tablet 13:59: Bedtime Her [facility] hydrochloro No 12.5 mg = M emoria [...] 7-25 cap, PO, l delayed 13:59: Daily [place] release capsule losartan No 100 mg = [...] PO, l oral tablet 13:59: Bedtime Her [facility] hydrochloro No 12.5 mg = M [place] thiazide 7-25 1 tab, PO, l 12.5 mg 13:59: Daily [place] oral tablet 00 omeprazole No 20 mg = 1 Me moria 20 mg oral 7-25 cap, PO, l delayed 13:59: Daily [place] release capsule losartan No 100 mg = [...] tab, PO, l 12.5 mg 13:59: Daily [place] oral tablet omeprazole No 20 mg = [...] PO, l oral tablet 13:59: Bedtime [facility] hydrochloro No 12.5 mg = M [place] thiazide 7-25 1 tab, PO, l 12.5 mg 13:59: Daily [place] oral tablet 00 omeprazole No 20 mg = 1 Me moria 20 mg oral 7-25 cap, PO, l delayed 13:59: Daily [place] release capsule losartan No 100 mg = [...] PO, l oral tablet 13:59: Bedtime Her [facility] hydrochloro No 12.5 mg = M [place]oria thiazide 7-25 1 tab, PO, l 12.5 mg 13:59: Daily [place] oral tablet omeprazole No 20 mg = 1 Me moria 20 mg oral 7-25 cap, PO, l delayed 13:59: Daily [place] release capsule losartan No 100 mg = [...] PO, l oral tablet 13:59: Bedtime Her [facility] hydrochloro No 12.5 mg = M [place]oria thiazide 7-25 1 tab, PO, l 12.5 mg 13:59: Daily [place] oral tablet 00 omeprazole No 20 mg = 1 Me moria 20 mg oral 7-25 cap, PO, l delayed 13:59: Daily [place] release capsule losartan No 100 mg = [...] PO, l oral tablet 13:59: Bedtime [facility] hydrochloro No 12.5 mg = M [place]oria thiazide 7-25 1 tab, PO, l 12.5 mg 13:59: Daily [place] oral tablet 00 omeprazole No 20 mg = 1 Me moria 20 mg oral 7-25 cap, PO, l delayed 13:59: Daily [place] release capsule losartan No 100 mg = [...] PO, l oral tablet 13:59: Bedtime [facility] hydrochloro No 12.5 mg = M [place]oria thiazide 7-25 1 tab, PO, l 12.5 mg 13:59: Daily [place] oral tablet 00 omeprazole No 20 mg = 1 Me moria 20 mg oral 7-25 cap, PO, l delayed 13:59: Daily [place] release capsule losartan No 100 mg = 1 Mem oria 100 mg oral 7-25 tab, PO, l tablet 13:59: Daily [place] 00 rosuvastati Yes 5 mg = 1 Me moria n 5 mg oral 7-25 tab, PO, l tablet 13:59: Bedtime anastrozole Yes 1 mg = 1 Me moria 1 mg oral 7-25 tab, PO, l tablet 13:59: Daily [place] 00 amLODIPine No 5 mg = 1 Mem oria 5 mg oral 7-25 tab, PO, l tablet 13:59: Daily [place] 00 atorvastati No 40 mg = 1 M emoria n 40 mg 7-25 tab, PO, l oral tablet 13:59: Bedtime Her [facility] hydrochloro No 12.5 mg = M [place] thiazide 7-25 1 tab, PO, l 12.5 mg 13:59: Daily [place] oral tablet 00 omeprazole No 20 mg = 1 Me moria 20 mg oral 7-25 cap, PO, l delayed 13:59: Daily [place] release capsule losartan No 100 mg = 1 Mem oria 100 mg oral 7-25 tab, PO, l tablet 13:59: Daily [place] 00 rosuvastati Yes 5 mg = 1 [...] tab, PO, l oral tablet 13:59: Bedtime [facility] hydrochloro No 12.5 mg = M emoria thiazide 7-25 1 tab, PO, l 12.5 mg 13:59: Daily [place] oral tablet 00 omeprazole No 20 mg [...] tab, PO, l oral tablet 13:59: Bedtime [facility] hydrochloro No 12.5 mg = M [facility]oria thiazide 7-25 1 tab, PO, l 12.5 mg 13:59: Daily [place] oral tablet 00 omeprazole No 20 mg = 1 Me moria 20 mg oral 7-25 cap, PO, l delayed 13:59: Daily [place] release capsule losartan No 100 mg = [...] tab, PO, l oral tablet 13:59: Bedtime [facility] hydrochloro No 12.5 mg = M [facility]oria thiazide 7-25 1 tab, PO, l 12.5 mg 13:59: Daily [place] oral tablet omeprazole No 20 mg = 1 Me moria 20 mg oral 7-25 cap, PO, l delayed 13:59: Daily [place] release capsule losartan No 100 mg = 1 Mem oria 100 mg oral 7-25 tab, PO, l tablet 13:59: Daily [place] 00 rosuvastati Yes 5 mg = 1 [...] tab, PO, l oral tablet 13:59: Bedtime [facility] hydrochloro No 12.5 mg = M [facility]oria thiazide 7-25 1 tab, PO, l 12.5 mg 13:59: Daily [place] oral tablet omeprazole No 20 mg = 1 Me moria 20 mg oral 7-25 cap, PO, l delayed 13:59: Daily [place] release 00 capsule losartan No 100 mg [...] tab, PO, l oral tablet 13:59: Bedtime [facility] hydrochloro No 12.5 mg = M [place] thiazide 7-25 1 tab, PO, l 12.5 mg 13:59: Daily [place] oral tablet 00 omeprazole No 20 mg = 1 Me moria 20 mg oral 7-25 cap, PO, l delayed 13:59: Daily [place] release 00 capsule losartan No 100 mg = 1 Mem oria 100 mg oral 7-25 tab, PO, l tablet 13:59: Daily rosuvastati Yes 5 mg = 1 Me moria n 5 mg oral 7-25 tab, PO, l tablet 13:59: Bedtime [place] 00 furosemide 2022-0 No Notes: Memor ia 7-25 (Same as: l 13:00: Lasix) [place] MEDICATION WASTE Product Size: 40 mg Product Wasted: ___ mg furosemide 2022-0 No Notes: Memor ia 7-25 (Same as: l 13:00: Lasix) [place] 00 MEDICATION WASTE Product Size: 40 mg Product Wasted: ___ mg furosemide 2022-0 No Notes: Memor ia 7-25 (Same as: l 13:00: Lasix) [place] 00 MEDICATION WASTE Product Size: 40 mg Product Wasted: ___ mg furosemide 2022-0 No Notes: Memor ia 7-25 (Same as: l 13:00: Lasix) [place] 00 MEDICATION WASTE Product Size: 40 mg Product Wasted: ___ mg furosemide 2022-0 No Notes: Memor ia 7-25 (Same as: l 13:00: Lasix) [place] 00 MEDICATION WASTE Product Size: 40 mg Product Wasted: ___ mg furosemide 2022-0 No Notes: Memor ia 7-25 (Same as: l 13:00: Lasix) [place] 00 MEDICATION WASTE Product Size: 40 mg Product Wasted: ___ mg furosemide 2022-0 No Notes: Memor ia 7-25 (Same as: l 13:00: Lasix) [place] 00 MEDICATION WASTE Product Size: 40 mg Product Wasted: ___ mg furosemide 2022-0 No Notes: Memor ia 7-25 (Same as: l 13:00: Lasix) [place] 00 MEDICATION WASTE Product Size: 40 mg Product Wasted: ___ mg furosemide 2022-0 No Notes: Memor ia 7-25 (Same as: l 13:00: Lasix) [place] 00 MEDICATION WASTE Product Size: 40 mg Product Wasted: ___ mg furosemide 2022-0 No Notes: Memor ia 7-25 (Same as: l 13:00: Lasix) [place] 00 MEDICATION WASTE Product Size: 40 mg Product Wasted: ___ mg furosemide 2022-0 No Notes: [facility] 7-25 (Same as: l 13:00: Lasix) [place] 00 MEDICATION WASTE Product Size: 40 mg Product Wasted: ___ mg furosemide 2022-0 No Notes: [facility] 7-25 (Same as: l 13:00: Lasix) [place] 00 MEDICATION WASTE Product Size: 40 mg Product Wasted: ___ mg furosemide 2022-0 No Notes: [facility] 7-25 (Same as: l 13:00: Lasix) [place] 00 MEDICATION WASTE Product Size: 40 mg Product Wasted: ___ mg furosemide 2022-0 No Notes: [facility] 7-25 (Same as: l 13:00: Lasix) [place] 00 MEDICATION WASTE Product Size: 40 mg Product Wasted: ___ mg furosemide 2022-0 No Notes: Memor ia 7-25 (Same as: l 13:00: Lasix) [place] 00 MEDICATION WASTE Product Size: 40 mg Product Wasted: ___ mg furosemide 2022-0 No Notes: Memor ia 7-25 (Same as: l 13:00: Lasix) [place] 00 MEDICATION WASTE Product Size: 40 mg Product Wasted: ___ mg furosemide 2022-0 No Notes: Memor ia 7-25 (Same as: l 13:00: Lasix) [place] 00 MEDICATION WASTE Product Size: 40 mg Product Wasted: ___ mg furosemide 2022-0 No Notes: Memor ia 7-25 (Same as: l 13:00: Lasix) [place] 00 MEDICATION WASTE Product Size: 40 mg Product Wasted: ___ mg furosemide 2022-0 No Notes: Memor ia 7-25 (Same as: l 13:00: Lasix) [place] 00 MEDICATION WASTE Product Size: 40 mg Product Wasted: ___ mg furosemide 2022-0 No Notes: Memor ia 7-25 (Same as: l 13:00: Lasix) [place] 00 MEDICATION WASTE Product Size: 40 mg Product Wasted: ___ mg furosemide 2022-0 No Notes: Memor ia 7-25 (Same as: l 13:00: Lasix) [place] 00 MEDICATION WASTE Product Size: 40 mg Product Wasted: ___ mg furosemide 2022-0 No Notes: Memor ia 7-25 (Same as: l 13:00: Lasix) [place] 00 MEDICATION WASTE Product Size: 40 mg Product Wasted: ___ mg furosemide 2022-0 No Notes: Memor ia 7-25 (Same as: l 13:00: Lasix) [place] 00 MEDICATION WASTE Product Size: 40 mg Product Wasted: ___ mg furosemide 2022-0 No Notes: Memor ia 7-25 (Same as: l 13:00: Lasix) [place] 00 MEDICATION WASTE Product Size: 40 mg Product Wasted: ___ mg furosemide 2022-0 No Notes: Memor ia 7-25 (Same as: l 13:00: Lasix) [place] 00 MEDICATION WASTE Product Size: 40 mg Product Wasted: ___ mg furosemide 2022-0 No Notes: Memor ia 7-25 (Same as: l 13:00: Lasix) [place] 00 MEDICATION WASTE Product Size: 40 mg Product Wasted: ___ mg furosemide 2022-0 No Notes: Memor ia 7-25 (Same as: l 13:00: Lasix) [place] 00 MEDICATION WASTE Product Size: 40 mg Product Wasted: ___ mg furosemide 2022-0 No Notes: Memor ia 7-25 (Same as: l 13:00: Lasix) [place] 00 MEDICATION WASTE Product Size: 40 mg Product Wasted: ___ mg furosemide 2022-0 No Notes: Memor ia 7-25 (Same as: l 13:00: Lasix) [place] 00 MEDICATION WASTE Product Size: 40 mg Product Wasted: ___ mg furosemide 2022-0 No Notes: Memor ia 7-25 (Same as: l 13:00: Lasix) [place] 00 MEDICATION WASTE Product Size: 40 mg Product Wasted: ___ mg furosemide 2022-0 No Notes: Memor ia 7-25 (Same as: l 13:00: Lasix) [place] 00 MEDICATION WASTE Product Size: 40 mg Product Wasted: ___ mg furosemide 2022-0 No Notes: Memor ia 7-25 (Same as: l 13:00: Lasix) [place] 00 MEDICATION WASTE Product Size: 40 mg Product Wasted: ___ mg furosemide 2022-0 No Notes: Memor ia 7-25 (Same as: l 13:00: Lasix) [place] 00 MEDICATION WASTE Product Size: 40 mg Product Wasted: ___ mg furosemide 2022-0 No Notes: Memor ia 7-25 (Same as: l 13:00: Lasix) [place] 00 MEDICATION WASTE Product Size: 40 mg Product Wasted: ___ mg furosemide 2022-0 No Notes: Memor ia 7-25 (Same as: l 13:00: Lasix) [place] 00 MEDICATION WASTE Product Size: 40 mg Product Wasted: ___ mg furosemide 2022-0 No Notes: Memor ia 7-25 (Same as: l 13:00: Lasix) [place] 00 MEDICATION WASTE Product Size: 40 mg Product Wasted: ___ mg furosemide 2022-0 No Notes: Memor ia 7-25 (Same as: l 13:00: Lasix) [place] 00 MEDICATION WASTE Product Size: 40 mg Product Wasted: ___ mg furosemide 2022-0 No Notes: Memor ia 7-25 (Same as: l 13:00: Lasix) [place] 00 MEDICATION WASTE Product Size: 40 mg Product Wasted: ___ mg furosemide 2022-0 No Notes: Memor ia 7-25 (Same as: l 13:00: Lasix) [place] 00 MEDICATION WASTE Product Size: 40 mg Product Wasted: ___ mg furosemide 2022-0 No Notes: Memor ia 7-25 (Same as: l 13:00: Lasix) [place] 00 MEDICATION WASTE Product Size: 40 mg Product Wasted: ___ mg furosemide 2022-0 No Notes: Memor ia 7-25 (Same as: l 13:00: Lasix) [place] 00 MEDICATION WASTE Product Size: 40 mg Product Wasted: ___ mg furosemide 2022-0 No Notes: Memor ia 7-25 (Same as: l 13:00: Lasix) [place] 00 MEDICATION WASTE Product Size: 40 mg Product Wasted: ___ mg furosemide 2022-0 No Notes: Memor ia 7-25 (Same as: l 13:00: Lasix) [place] 00 MEDICATION WASTE Product Size: 40 mg Product Wasted: ___ mg furosemide 2022-0 No Notes: Memor ia 7-25 (Same as: l 13:00: Lasix) [place] 00 MEDICATION WASTE Product Size: 40 mg Product Wasted: ___ mg furosemide 2022-0 No Notes: Memor ia 7-25 (Same as: l 13:00: Lasix) [place] 00 MEDICATION WASTE Product Size: 40 mg Product Wasted: ___ mg furosemide 2022-0 No Notes: Memor ia 7-25 (Same as: l 13:00: Lasix) [place] 00 MEDICATION WASTE Product Size: 40 mg Product Wasted: ___ mg furosemide 2022-0 No Notes: Memor ia 7-25 (Same as: l 13:00: Lasix) [place] 00 MEDICATION WASTE Product Size: 40 mg Product Wasted: ___ mg furosemide 2022-0 No Notes: Memor ia 7-25 (Same as: l 13:00: Lasix) [place] 00 MEDICATION WASTE Product Size: 40 mg Product Wasted: ___ mg furosemide 2022-0 No Notes: Memor ia 7-25 (Same as: l 13:00: Lasix) [place] 00 MEDICATION WASTE Product Size: 40 mg Product Wasted: ___ mg furosemide 2022-0 No Notes: Memor ia 7-25 (Same as: [...] inhalation 00 solution albuterol-i No Notes: Sanya clemenitne pratropium 7-25 (Same as: l 2.5-0.5 mg 12:00: Duoneb) Herm nupur inhalation 00 solution albuterol-i No Notes: Sanya clementine pratropium 7-25 (Same as: l 2.5-0.5 mg 12:00: Duoneb) Herm nupur inhalation 00 solution albuterol-i No Notes: Sanya clementine pratropium 7-25 (Same as: l 2.5-0.5 mg 12:00: Duoneb) Herm nupur inhalation 00 solution albuterol-i 2021- No Notes: Sanya clementine pratropium 7-25 (Same [...] n 06-13 not give l 09:00: w/antacids [place] 00 , dairy pdt & minerals Take 1 hr before or 2 hr after dairy pdt (Same as:Levaqui n) levofloxaci No Notes: Do M emoria n 06-13 not give l 09:00: w/antacids [place] 00 , dairy pdt & minerals Take 1 hr before or 2 hr after dairy pdt (Same as:Levaqui n) levofloxaci No Notes: Do M emoria n 06-13 not give l 09:00: w/antacids [place] 00 , dairy pdt & minerals Take 1 hr before or 2 hr after dairy pdt (Same as:Levaqui n) levofloxaci No Notes: Do M emoria n 7 not give l 09:00: w/antacids [place] 00 , dairy pdt & minerals Take 1 hr before or 2 hr after dairy pdt (Same as:Levaqui n) levofloxaci No Notes: Do M emoria n 06-13 not give l 09:00: w/antacids [place] 00 , dairy pdt & minerals Take 1 hr before or 2 hr after dairy pdt (Same as:Levaqui n) levofloxaci No Notes: Do Radha hellerria n 06-13 not give l 09:00: w/antacids [place] 00 , dairy pdt & minerals Take 1 hr before or 2 hr after dairy pdt (Same as:Levaqui n) levofloxaci No Notes: Do Radha hellerria n 06-13 not give l 09:00: w/antacids [place] 00 , dairy pdt & minerals Take 1 hr before or 2 hr after dairy pdt (Same as:Levaqui n) levofloxaci No Notes: Do Radha hellerria n 06-13 not give l 09:00: w/antacids [place] 00 , dairy pdt & minerals Take 1 hr before or 2 hr after dairy pdt (Same as:Levaqui n) levofloxaci No Notes: Do Radha rigginsa n 06-13 not give l 09:00: w/antacids [place] 00 , dairy pdt & minerals Take 1 hr before or 2 hr after dairy pdt (Same as:Levaqui n) levofloxaci No Notes: Do Radha negrete n 06-13 not give l 09:00: w/antacids [place] 00 , dairy pdt & minerals Take 1 hr before or 2 hr after dairy pdt (Same as:Levaqui n) levofloxaci No Notes: Do Radha negrete n 06-13 not give l 09:00: w/antacids [place] 00 , dairy pdt & minerals Take 1 hr before or 2 hr after dairy pdt (Same as:Levaqui n) levofloxaci No Notes: Do Radha hellerria n 06-13 not give l 09:00: w/antacids [place] 00 , dairy pdt & minerals Take 1 hr before or 2 hr after dairy pdt (Same as:Levaqui n) levofloxaci No Notes: Do Radha hellerria n 06-13 not give l 09:00: w/antacids [place] 00 , dairy pdt & minerals Take 1 hr before or 2 hr after dairy pdt (Same as:Levaqui n) levofloxaci No Notes: Do Radha hellerria n 06-13 not give l 09:00: w/antacids [...] n 06-13 not give l 09:00: w/antacids [place] 00 , dairy pdt & minerals Take 1 hr before or 2 hr after dairy pdt (Same as:Levaqui n) levofloxaci No Notes: Do Radha emoria n 06-13 not give l 09:00: w/antacids [place] 00 , dairy pdt & minerals Take 1 hr before or 2 hr after dairy pdt (Same as:Levaqui n) levofloxaci No Notes: Do Radha hellerria n 06-13 not give l 09:00: w/antacids [place] 00 , dairy pdt & minerals Take 1 hr before or 2 hr after dairy pdt (Same as:Levaqui n) levofloxaci No Notes: Do Radha hellerria n 06-13 not give l 09:00: w/antacids [place] 00 , dairy pdt & minerals Take 1 hr before or 2 hr after dairy pdt (Same as:Levaqui n) levofloxaci No Notes: Do Radha hellerria n 06-13 not give l 09:00: w/antacids [place] 00 , dairy pdt & minerals Take 1 hr before or 2 hr after dairy pdt (Same as:Levaqui n) levofloxaci No Notes: Do M emoria n 06-13 not give l 09:00: w/antacids [place] 00 , dairy pdt & minerals Take 1 hr before or 2 hr after dairy pdt (Same as:Levaqui n) levofloxaci No Notes: Do Radha hellerria n 06-13 not give l 09:00: w/antacids [place] 00 , dairy pdt & minerals Take 1 hr before or 2 hr after dairy pdt (Same as:Levaqui n) levofloxaci No Notes: Do Radha negrete n 06-13 not give l 09:00: w/antacids [place] 00 , dairy pdt & minerals Take 1 hr before or 2 hr after dairy pdt (Same as:Levaqui n) levofloxaci No Notes: Do Radha negrete n 06-13 not give l 09:00: w/antacids [place] 00 , dairy pdt & minerals Take 1 hr before or 2 hr after dairy pdt (Same as:Levaqui n) levofloxaci No Notes: Do Radha negrete n 06-13 not give l 09:00: w/antacids [place] 00 , dairy pdt & minerals Take 1 hr before or 2 hr after dairy pdt (Same as:Levaqui n) levofloxaci No Notes: Do Radha negrete n 06-13 not give l 09:00: w/antacids [place] 00 , dairy pdt & minerals Take 1 hr before or 2 hr after dairy pdt (Same as:Levaqui n) levofloxaci No Notes: Do Radha negrete n 06-13 not give l 09:00: w/antacids [place] 00 , dairy pdt & minerals Take 1 hr before or 2 hr after dairy pdt (Same as:Levaqui n) levofloxaci No Notes: Do Radha negrete n 06-13 not give l 09:00: w/antacids [place] 00 , dairy pdt & minerals Take 1 hr before or 2 hr after dairy pdt (Same as:Levaqui n) levofloxaci No Notes: Do Radha negrete n 06-13 not give l 09:00: w/antacids [place] 00 , dairy pdt & minerals Take 1 hr before or 2 hr after dairy pdt (Same as:Levaqui n) levofloxaci No Notes: Do Radha negrete n 06-13 not give l 09:00: w/antacids [place] 00 , dairy pdt & minerals Take 1 hr before or 2 hr after dairy pdt (Same as:Levaqui n) levofloxaci No Notes: Do Radha negrete n 06-13 not give l 09:00: w/antacids [place] 00 , dairy pdt & minerals Take 1 hr before or 2 hr after dairy pdt (Same as:Levaqui n) levofloxaci No Notes: Do Radha emoria n 06-13 not give l 09:00: w/antacids [place] 00 , dairy pdt & minerals Take 1 hr before or 2 hr after dairy pdt (Same as:Levaqui n) levofloxaci No Notes: Do Radha emoria n 06-13 not give l 09:00: w/antacids [place] 00 , dairy pdt & minerals Take 1 hr before or 2 hr after dairy pdt (Same as:Levaqui n) levofloxaci No Notes: Do Radha emoria n 06-13 not give l 09:00: w/antacids [place] 00 , dairy pdt & minerals Take 1 hr before or 2 hr after dairy pdt (Same as:Levaqui n) levofloxaci No Notes: Do Radha hellerria n 06-13 not give l 09:00: w/antacids [place] 00 , dairy pdt & minerals Take 1 hr before or 2 hr after dairy pdt (Same as:Levaqui n) levofloxaci No Notes: Do Radha hellerria n 06-13 not give l 09:00: w/antacids [place] 00 , dairy pdt & minerals Take 1 hr before or 2 hr after dairy pdt (Same as:Levaqui n) levofloxaci No Notes: Do Radha hellerria n 06-13 not give l 09:00: w/antacids [place] 00 , dairy pdt & minerals Take 1 hr before or 2 hr after dairy pdt (Same as:Levaqui n) levofloxaci No Notes: Do Radha hellerria n 06-13 not give l 09:00: w/antacids [place] 00 , dairy pdt & minerals Take 1 hr before or 2 hr after dairy pdt (Same as:Levaqui n) levofloxaci No Notes: Do Radha hellerria n 06-13 not give l 09:00: w/antacids [place] 00 , dairy pdt & minerals Take 1 hr before or 2 hr after dairy pdt (Same as:Levaqui n) levofloxaci No Notes: Do Radha hellerria n 06-13 not give l 09:00: w/antacids [place] 00 , dairy pdt & minerals Take 1 hr before or 2 hr after dairy pdt (Same as:Levaqui n) levofloxaci No Notes: Do Radha hellerria n 7 not give l 09:00: w/antacids [place] 00 , dairy pdt & minerals Take 1 hr before or 2 hr after dairy pdt (Same as:Levaqui n) levofloxaci No Notes: Do Radha hellerria n 7 not give l 09:00: w/antacids [place] 00 , dairy pdt & minerals Take 1 hr before or 2 hr after dairy pdt (Same as:Levaqui n) levofloxaci No Notes: Do Radha hellerria n 06-13 not give l 09:00: w/antacids [place] 00 , dairy pdt & minerals Take 1 hr before or 2 hr after dairy pdt (Same as:Levaqui n) levofloxaci No Notes: Do Radha hellerria n 06-13 not give l 09:00: w/antacids [place] 00 , dairy pdt & minerals Take 1 hr before or 2 hr after dairy pdt (Same as:Levaqui n) levofloxaci No Notes: Do Radha hellerria n 06-13 not give l 09:00: w/antacids [place] 00 , dairy pdt & minerals Take 1 hr before or 2 hr after dairy pdt (Same as:Levaqui n) levofloxaci No Notes: Do Radha hellerria n 06-13 not give l 09:00: w/antacids [place] 00 , dairy pdt & minerals Take 1 hr before or 2 hr after dairy pdt (Same as:Levaqui n) levofloxaci No Notes: Do Radha emoria n 06-13 not give l 09:00: w/antacids [place] 00 , dairy pdt & minerals Take 1 hr before or 2 hr after dairy pdt (Same as:Levaqui n) levofloxaci No Notes: Do Radha hellerria n 06-13 not give l 09:00: w/antacids [place] 00 , dairy pdt & minerals Take 1 hr before or 2 hr after dairy pdt (Same as:Levaqui n) levofloxaci No Notes: Do Radha emoria n 06-13 not give l 09:00: w/antacids [place] 00 , dairy pdt & minerals Take 1 hr before or 2 hr after dairy pdt (Same as:Levaqui n) levofloxaci No Notes: Do Radha emoria n 06-13 not give l 09:00: w/antacids [place] 00 , dairy pdt & minerals Take 1 hr before or 2 hr after dairy pdt (Same as:Levaqui n) levofloxaci No Notes: Do Radha hellerria n 06-13 not give l 09:00: w/antacids [place] 00 , dairy pdt & minerals Take 1 hr before or 2 hr after dairy pdt (Same as:Levaqui n) levofloxaci No Notes: Do Radha hellerria n 06-13 not give l 09:00: w/antacids [place] 00 , dairy pdt & minerals Take 1 hr before or 2 hr after dairy pdt (Same as:Levaqui n) levofloxaci No Notes: Do Radha hellerria n 06-13 not give l 09:00: w/antacids [place] 00 , dairy pdt & minerals Take [...] 7-25 Take with l 08:41: food. D10W 2022-0 No 250 mL, Memoria (bolus) IV 7-25 999 ml/hr, l 07:01: Route: IV, [place] 00 Drug Form: INJ, Dosing Weight 63.636, [...] 7-25 999 ml/hr, l 07:01: Route: IV, [place] 00 Drug Form: INJ, Dosing Weight 63.636, kg, PRN, PRN Blood Glucose Results, Start date: 06/13/22 2:01:00 CDT, Duration: 30 day, Stop date: 07/13/22 2:00:00 CDT, Infuse over: 0.3 hr, 0 D10W 2022-0 No 250 mL, Memoria (bolus) IV 7-25 999 ml/hr, l 07:01: Route: IV, [place] 00 Drug Form: INJ, Dosing Weight 63.636, kg, PRN, PRN Blood Glucose Results, Start date: 06/13/22 2:01:00 CDT, Duration: 30 day, Stop date: 07/13/22 2:00:00 CDT, Infuse over: 0.3 hr, 0 D10W 2022-0 No 250 mL, Memoria (bolus) IV 7-25 999 ml/hr, l 07:01: Route: IV, [place] 00 Drug Form: INJ, Dosing Weight 63.636, kg, PRN, PRN Blood Glucose Results, Start date: 06/13/22 2:01:00 CDT, Duration: 30 day, Stop date: 07/13/22 2:00:00 CDT, Infuse over: 0.3 hr, 0 D10W 2-0 No 250 mL, Memoria (bolus) IV 7-25 999 ml/hr, l 07:01: Route: IV, [place] 00 Drug Form: INJ, Dosing Weight 63.636, kg, PRN, PRN Blood Glucose Results, Start date: 06/13/22 2:01:00 CDT, Duration: 30 day, Stop date: 07/13/22 2:00:00 CDT, Infuse over: 0.3 hr, 0 D10W 2-0 No 250 mL, Memoria (bolus) IV 7-25 999 ml/hr, l 07:01: Route: IV, [place] 00 Drug Form: INJ, Dosing Weight 63.636, kg, PRN, PRN Blood Glucose Results, Start date: 06/13/22 2:01:00 CDT, Duration: 30 day, Stop date: 07/13/22 2:00:00 CDT, Infuse over: 0.3 hr, 0 D10W 2022-0 No 250 mL, Memoria (bolus) IV 7-25 999 ml/hr, l 07:01: Route: IV, [place] 00 Drug Form: INJ, Dosing Weight 63.636, kg, PRN, PRN Blood Glucose Results, Start date: 06/13/22 2:01:00 CDT, Duration: 30 day, Stop date: 07/13/22 2:00:00 CDT, Infuse over: 0.3 hr, 0 D10W 2022-0 No 250 mL, Memoria (bolus) IV 7-25 999 ml/hr, l 07:01: Route: IV, Drug Form: INJ, Dosing Weight 63.636, kg, PRN, PRN Blood Glucose Results, Start date: 06/13/22 2:01:00 CDT, Duration: 30 day, Stop date: 07/13/22 2:00:00 CDT, Infuse over: 0.3 hr, 0 D10W 2022-0 No 250 mL, Memoria (bolus) IV 7-25 999 ml/hr, l 07:01: Route: IV, Drug Form: INJ, Dosing Weight 63.636, kg, PRN, PRN Blood Glucose Results, Start date: 06/13/22 2:01:00 CDT, Duration: 30 day, Stop date: 07/13/22 2:00:00 CDT, Infuse over: 0.3 hr, 0 D10W 2022-0 No 250 mL, Memoria (bolus) IV 7-25 999 ml/hr, l 07:01: Route: IV, Drug Form: INJ, Dosing Weight 63.636, kg, PRN, PRN Blood Glucose Results, Start date: 06/13/22 2:01:00 CDT, Duration: 30 day, Stop date: 07/13/22 2:00:00 CDT, Infuse over: 0.3 hr, 0 D10W 2022-0 No 250 mL, Memoria (bolus) IV 7-25 999 ml/hr, l 07:01: Route: IV, Drug Form: INJ, Dosing Weight 63.636, kg, PRN, PRN Blood Glucose Results, Start date: 06/13/22 2:01:00 CDT, Duration: 30 day, Stop date: 07/13/22 2:00:00 CDT, Infuse over: 0.3 hr, 0 D10W 2022-0 No 250 mL, Memoria (bolus) IV 7-25 999 ml/hr, l 07:01: Route: IV, [place] 00 Drug Form: INJ, Dosing Weight 63.636, kg, PRN, PRN Blood Glucose Results, Start date: 06/13/22 2:01:00 CDT, Duration: 30 day, Stop date: 07/13/22 2:00:00 CDT, Infuse over: 0.3 hr, 0 D10W 2022-0 No 250 mL, Memoria (bolus) IV 7-25 999 ml/hr, l 07:01: Route: IV, [place] 00 Drug Form: INJ, Dosing Weight 63.636, kg, PRN, PRN Blood Glucose Results, Start date: 06/13/22 2:01:00 CDT, Duration: 30 day, Stop date: 07/13/22 2:00:00 CDT, Infuse over: 0.3 hr, 0 D10W 2-0 No 250 mL, Memoria (bolus) IV 7-25 999 ml/hr, l 07:01: Route: IV, [place] 00 Drug Form: INJ, Dosing Weight 63.636, kg, PRN, PRN Blood Glucose Results, Start date: 06/13/22 2:01:00 CDT, Duration: 30 day, Stop date: 07/13/22 2:00:00 CDT, Infuse over: 0.3 hr, 0 D10W 2-0 No 250 mL, Memoria (bolus) IV 7-25 999 ml/hr, l 07:01: Route: IV, [place] 00 Drug Form: INJ, Dosing Weight 63.636, kg, PRN, PRN Blood Glucose Results, Start date: 06/13/22 2:01:00 CDT, Duration: 30 day, Stop date: 07/13/22 2:00:00 CDT, Infuse over: 0.3 hr, 0 D10W 2022-0 No 250 mL, Memoria (bolus) IV 7-25 999 ml/hr, l 07:01: Route: IV, [place] 00 Drug Form: INJ, Dosing Weight 63.636, kg, PRN, PRN Blood Glucose Results, Start date: 06/13/22 2:01:00 CDT, Duration: 30 day, Stop date: 07/13/22 2:00:00 CDT, Infuse over: 0.3 hr, 0 D10W 2022-0 No 250 mL, Memoria (bolus) IV 7-25 999 ml/hr, l 07:01: Route: IV, [place] 00 Drug Form: INJ, Dosing Weight 63.636, kg, PRN, PRN Blood Glucose Results, Start date: 06/13/22 2:01:00 CDT, Duration: 30 day, Stop date: 07/13/22 2:00:00 CDT, Infuse over: 0.3 hr, 0 D10W 2022-0 No 250 mL, Memoria (bolus) IV 7-25 999 ml/hr, l 07:01: Route: IV, [place] 00 Drug Form: INJ, Dosing Weight 63.636, kg, PRN, PRN Blood Glucose Results, Start date: 06/13/22 2:01:00 CDT, Duration: 30 day, Stop date: 07/13/22 2:00:00 CDT, Infuse over: 0.3 hr, 0 D10W 2-0 No 250 mL, Memoria (bolus) IV 7-25 999 ml/hr, l 07:01: Route: IV, [place] 00 Drug Form: INJ, Dosing Weight 63.636, kg, PRN, PRN Blood Glucose Results, Start date: 06/13/22 2:01:00 CDT, Duration: 30 day, Stop date: 07/13/22 2:00:00 CDT, Infuse over: 0.3 hr, 0 D10W 2-0 No 250 mL, Memoria (bolus) IV 7-25 999 ml/hr, l 07:01: Route: IV, [place] 00 Drug Form: INJ, Dosing Weight 63.636, kg, PRN, PRN Blood Glucose Results, Start date: 06/13/22 2:01:00 CDT, Duration: 30 day, Stop date: 07/13/22 2:00:00 CDT, Infuse over: 0.3 hr, 0 D10W 2022-0 No 250 mL, Memoria (bolus) IV 7-25 999 ml/hr, l 07:01: Route: IV, [place] 00 Drug Form: INJ, Dosing Weight 63.636, kg, PRN, PRN Blood Glucose Results, Start date: 06/13/22 2:01:00 CDT, Duration: 30 day, Stop date: 07/13/22 2:00:00 CDT, Infuse over: 0.3 hr, 0 D10W 2022-0 No 250 mL, Memoria (bolus) IV 7-25 999 ml/hr, l 07:01: Route: IV, Drug Form: INJ, Dosing Weight 63.636, kg, PRN, PRN Blood Glucose Results, Start date: 06/13/22 2:01:00 CDT, Duration: 30 day, Stop date: 07/13/22 2:00:00 CDT, Infuse over: 0.3 hr, 0 D10W 2022-0 No 250 mL, Memoria (bolus) IV 7-25 999 ml/hr, l 07:01: Route: IV, Drug Form: INJ, Dosing Weight 63.636, kg, PRN, PRN Blood Glucose Results, Start date: 06/13/22 2:01:00 CDT, Duration: 30 day, Stop date: 07/13/22 2:00:00 CDT, Infuse over: 0.3 hr, 0 D10W 2022-0 No 250 mL, Mem[facility] (bolus) IV 7-25 999 ml/hr, l 07:01: Route: IV, Drug Form: INJ, Dosing Weight 63.636, kg, PRN, PRN Blood Glucose Results, Start date: 06/13/22 2:01:00 CDT, Duration: 30 day, Stop date: 07/13/22 2:00:00 CDT, Infuse over: 0.3 hr, 0 D10W 2022-0 No 250 mL, Mem[facility] (bolus) IV 7-25 999 ml/hr, l 07:01: Route: IV, Drug Form: INJ, Dosing Weight 63.636, kg, PRN, PRN Blood Glucose Results, Start date: 06/13/22 2:01:00 CDT, Duration: 30 day, Stop date: 07/13/22 2:00:00 CDT, Infuse over: 0.3 hr, 0 D10W 2022-0 No 250 mL, Memoria (bolus) IV 7-25 999 ml/hr, l 07:01: Route: IV, [place] 00 Drug Form: INJ, Dosing Weight 63.636, kg, PRN, PRN Blood Glucose Results, Start date: 06/13/22 2:01:00 CDT, Duration: 30 day, Stop date: 07/13/22 2:00:00 CDT, Infuse over: 0.3 hr, 0 D10W 2022-0 No 250 mL, Mem[facility] (bolus) IV 7-25 999 ml/hr, l 07:01: Route: IV, [place] Drug Form: INJ, Dosing Weight 63.636, kg, PRN, PRN Blood Glucose Results, Start date: 06/13/22 2:01:00 CDT, Duration: 30 day, Stop date: 07/13/22 2:00:00 CDT, Infuse over: 0.3 hr, 0 D10W 2022-0 No 250 mL, Mem[facility] (bolus) IV 7-25 999 ml/hr, l 07:01: Route: IV, [place] 00 Drug Form: INJ, Dosing Weight 63.636, kg, PRN, PRN Blood Glucose Results, Start date: 06/13/22 2:01:00 CDT, Duration: 30 day, Stop date: 07/13/22 2:00:00 CDT, Infuse over: 0.3 hr, 0 D10W 2022-0 No 250 mL, Mem[facility] (bolus) IV 7-25 999 ml/hr, l 07:01: Route: IV, [place] 00 Drug Form: INJ, Dosing Weight 63.636, kg, PRN, PRN Blood Glucose Results, Start date: 06/13/22 2:01:00 CDT, Duration: 30 day, Stop date: 07/13/22 2:00:00 CDT, Infuse over: 0.3 hr, 0 D10W 2022-0 No 250 mL, Mem[facility] (bolus) IV 7-25 999 ml/hr, l 07:01: Route: IV, [place] 00 Drug Form: INJ, Dosing Weight 63.636, kg, PRN, PRN Blood Glucose Results, Start date: 06/13/22 2:01:00 CDT, Duration: 30 day, Stop date: 07/13/22 2:00:00 CDT, Infuse over: 0.3 hr, 0 D10W 2022-0 No 250 mL, Memoria (bolus) IV 7-25 999 ml/hr, l 07:01: Route: IV, [place] 00 Drug Form: INJ, Dosing Weight 63.636, kg, PRN, PRN Blood Glucose Results, Start date: 06/13/22 2:01:00 CDT, Duration: 30 day, Stop date: 07/13/22 2:00:00 CDT, Infuse over: 0.3 hr, 0 D10W 2022-0 No 250 mL, Memoria (bolus) IV 7-25 999 ml/hr, l 07:01: Route: IV, Tomas 00 Drug Form: INJ, Dosing Weight 63.636, kg, PRN, PRN Blood Glucose Results, Start date: 06/13/22 2:01:00 CDT, Duration: 30 day, Stop date: 07/13/22 2:00:00 CDT, Infuse over: 0.3 hr, 0 D10W 2022-0 No 250 mL, Memoria (bolus) IV 7-25 999 ml/hr, l 07:01: Route: IV, Drug Form: INJ, Dosing Weight 63.636, kg, PRN, PRN Blood Glucose Results, Start date: 06/13/22 2:01:00 CDT, Duration: 30 day, Stop date: 07/13/22 2:00:00 CDT, Infuse over: 0.3 hr, 0 D10W 2-0 No 250 mL, Memoria (bolus) IV 7-25 999 ml/hr, l 07:01: Route: IV, [place] 00 Drug Form: INJ, Dosing Weight 63.636, kg, PRN, PRN Blood Glucose Results, Start date: 06/13/22 2:01:00 CDT, Duration: 30 day, Stop date: 07/13/22 2:00:00 CDT, Infuse over: 0.3 hr, 0 D10W 2022-0 No 250 mL, Memoria (bolus) IV 7-25 999 ml/hr, l 07:01: Route: IV, Tomas 00 Drug Form: INJ, Dosing Weight 63.636, kg, PRN, PRN Blood Glucose Results, Start date: 06/13/22 2:01:00 CDT, Duration: 30 day, Stop date: 07/13/22 2:00:00 CDT, Infuse over: 0.3 hr, 0 D10W 2022-0 No 250 mL, Memoria (bolus) IV 7-25 999 ml/hr, l 07:01: Route: IV, Drug Form: INJ, Dosing Weight 63.636, kg, PRN, PRN Blood Glucose Results, Start date: 06/13/22 2:01:00 CDT, Duration: 30 day, Stop date: 07/13/22 2:00:00 CDT, Infuse over: 0.3 hr, 0 D10W 2022-0 No 250 mL, Memoria (bolus) IV 7-25 999 ml/hr, l 07:01: Route: IV, Drug Form: INJ, Dosing Weight 63.636, kg, PRN, PRN Blood Glucose Results, Start date: 06/13/22 2:01:00 CDT, Duration: 30 day, Stop date: 07/13/22 2:00:00 CDT, Infuse over: 0.3 hr, 0 D10W 2022-0 No 250 mL, Memoria (bolus) IV 7-25 999 ml/hr, l 07:01: Route: IV, Drug Form: INJ, Dosing Weight 63.636, kg, PRN, PRN Blood Glucose Results, Start date: 06/13/22 2:01:00 CDT, Duration: 30 day, Stop date: 07/13/22 2:00:00 CDT, Infuse over: 0.3 hr, 0 D10W 2022-0 No 250 mL, Memoria (bolus) IV 7-25 999 ml/hr, l 07:01: Route: IV, Drug Form: INJ, Dosing Weight 63.636, kg, PRN, PRN Blood Glucose Results, Start date: 06/13/22 2:01:00 CDT, Duration: 30 day, Stop date: 07/13/22 2:00:00 CDT, Infuse over: 0.3 hr, 0 D10W 2022-0 No 250 mL, Memoria (bolus) IV 7-25 999 ml/hr, l 07:01: Route: IV, Tomas 00 Drug Form: INJ, Dosing Weight 63.636, kg, PRN, PRN Blood Glucose Results, Start date: 06/13/22 2:01:00 CDT, Duration: 30 day, Stop date: 07/13/22 2:00:00 CDT, Infuse over: 0.3 hr, 0 D10W 2022-0 No 250 mL, Memoria (bolus) IV 7-25 999 ml/hr, l 07:01: Route: IV, Tomas 00 Drug Form: INJ, Dosing Weight 63.636, kg, PRN, PRN Blood Glucose Results, Start date: 06/13/22 2:01:00 CDT, Duration: 30 day, Stop date: 07/13/22 2:00:00 CDT, Infuse over: 0.3 hr, 0 D10W 2022-0 No 250 mL, Memoria (bolus) IV 7-25 999 ml/hr, l 07:01: Route: IV, [place] 00 Drug Form: INJ, Dosing Weight 63.636, kg, PRN, PRN Blood Glucose Results, Start date: 06/13/22 2:01:00 CDT, Duration: 30 day, Stop date: 07/13/22 2:00:00 CDT, Infuse over: 0.3 hr, 0 D10W 2022-0 No 250 mL, Memoria (bolus) IV 7-25 999 ml/hr, l 07:01: Route: IV, Drug Form: INJ, Dosing Weight 63.636, kg, PRN, PRN Blood Glucose Results, Start date: 06/13/22 2:01:00 CDT, Duration: 30 day, Stop date: 07/13/22 2:00:00 CDT, Infuse over: 0.3 hr, 0 D10W 2022-0 No 250 mL, Memoria (bolus) IV 7-25 999 ml/hr, l 07:01: Route: IV, Tomas 00 Drug Form: INJ, Dosing Weight 63.636, kg, PRN, PRN Blood Glucose Results, Start date: 06/13/22 2:01:00 CDT, Duration: 30 day, Stop date: 07/13/22 2:00:00 CDT, Infuse over: 0.3 hr, 0 D10W 2022-0 No 250 mL, Memoria (bolus) IV 7-25 999 ml/hr, l 07:01: Route: IV, [place] 00 Drug Form: INJ, Dosing Weight 63.636, kg, PRN, PRN Blood Glucose Results, Start date: 06/13/22 2:01:00 CDT, Duration: 30 day, Stop date: 07/13/22 2:00:00 CDT, Infuse over: 0.3 hr, 0 D10W 2022-0 No 250 mL, Memoria (bolus) IV 7-25 999 ml/hr, l 07:01: Route: IV, Drug Form: INJ, Dosing Weight 63.636, kg, PRN, PRN Blood Glucose Results, Start date: 06/13/22 2:01:00 CDT, Duration: 30 day, Stop date: 07/13/22 2:00:00 CDT, Infuse over: 0.3 hr, 0 D10W 2022-0 No 250 mL, Memoria (bolus) IV 7-25 999 ml/hr, l 07:01: Route: IV, Drug Form: INJ, Dosing Weight 63.636, kg, PRN, PRN Blood Glucose Results, Start date: 06/13/22 2:01:00 CDT, Duration: 30 day, Stop date: 07/13/22 2:00:00 CDT, Infuse over: 0.3 hr, 0 D10W 2-0 No 250 mL, Memoria (bolus) IV 7-25 999 ml/hr, l 07:01: Route: IV, [place] 00 Drug Form: INJ, Dosing Weight 63.636, kg, PRN, PRN Blood Glucose Results, Start date: 06/13/22 2:01:00 CDT, Duration: 30 day, Stop date: 07/13/22 2:00:00 CDT, Infuse over: 0.3 hr, 0 D10W 2022-0 No 250 mL, Memoria (bolus) IV 7-25 999 ml/hr, l 07:01: Route: IV, [place] 00 Drug Form: INJ, Dosing Weight 63.636, [...] (Same as: l 07:00: Lovenox) Tomas 00 Lovenox No Notes: Memoria 7-25 (Same as: l 07:00: Lovenox) [place] 00 Lovenox No Notes: Memoria 7-25 (Same as: l 07:00: Lovenox) [place] 00 Lovenox No Notes: Memoria 7-25 (Same as: l 07:00: Lovenox) Tomas 00 Lovenox No Notes: Memoria 7-25 (Same as: l 07:00: Lovenox) Tomas Lovenox No Notes: Memoria 7-25 (Same as: l 07:00: Lovenox) [place] Lovenox No Notes: Memoria 7-25 (Same as: l 07:00: Lovenox) Tomas Lovenox No Notes: Memoria 7-25 (Same as: l 07:00: Lovenox) Tomas Lovenox No Notes: Memoria 7-25 (Same as: l 07:00: Lovenox) Tomas Lovenox No Notes: Memoria 7-25 (Same as: l 07:00: Lovenox) [place] 00 Lovenox No Notes: Memoria 7-25 (Same as: l 07:00: Lovenox) [place] Lovenox No Notes: Memoria 7-25 (Same as: l 07:00: Lovenox) [place] Lovenox No Notes: Memoria 7-25 (Same as: l 07:00: Lovenox) [place] Lovenox No Notes: Memoria 7-25 (Same as: l 07:00: Lovenox) [place] Lovenox No Notes: Memoria 7-25 (Same as: l 07:00: Lovenox) [place] Lovenox No Notes: Memoria 7-25 (Same as: l 07:00: Lovenox) Tomas Lovenox No Notes: Memoria 7-25 (Same as: l 07:00: Lovenox) Tomas Lovenox No Notes: Memoria 7-25 (Same as: l 07:00: Lovenox) [place] 00 Lovenox No Notes: Memoria 7-25 (Same as: l 07:00: Lovenox) Tomas Lovenox No Notes: Memoria 7-25 (Same as: l 07:00: Lovenox) [place] 00 Lovenox No Notes: Memoria 7-25 (Same as: l 07:00: Lovenox) Tomas Lovenox No Notes: Memoria 7-25 (Same as: l 07:00: Lovenox) [place] Lovenox No Notes: Memoria 7-25 (Same as: l 07:00: Lovenox) [place] Lovenox 0 No Notes: Memoria 7-25 (Same as: l 07:00: Lovenox) Tomas Lovenox 0 No Notes: Memoria 7-25 (Same as: l 07:00: Lovenox) [place] Lovenox 0 No Notes: Memoria 7-25 (Same as: l 07:00: Lovenox) [place] Lovenox No Notes: Memoria 7-25 (Same as: l 07:00: Lovenox) [place] Lovenox 0 No Notes: Memoria 7-25 (Same as: l 07:00: Lovenox) [place] Lovenox 0 No Notes: Memoria 7-25 (Same as: l 07:00: Lovenox) Tomas Lovenox 0 No Notes: Memoria 7-25 (Same as: l 07:00: Lovenox) [place]omas Lovenox 0 No Notes: Memoria 7-25 (Same as: l 07:00: Lovenox) [place] Lovenox No Notes: Memoria 7-25 (Same as: l 07:00: Lovenox) [place]omas Lovenox 0 No Notes: Memoria 7-25 (Same as: l 07:00: Lovenox) [place] Lovenox No Notes: Memoria 7-25 (Same as: l 07:00: Lovenox) Tomas Lovenox 0 No Notes: Memoria 7-25 (Same as: l 07:00: Lovenox) Tomas Lovenox No Notes: Memoria 7-25 (Same as: l 07:00: Lovenox) [place]omas Lovenox 0 No Notes: Memoria 7-25 (Same as: l 07:00: Lovenox) [place] Lovenox No Notes: Memoria 7-25 (Same as: l 07:00: Lovenox) [place]omas Lovenox 0 No Notes: Memoria 7-25 (Same as: l 07:00: Lovenox) Tomas Lovenox 0 No Notes: Memoria 7-25 (Same as: l 07:00: Lovenox) [place] Lovenox 0 No Notes: Memoria 7-25 (Same as: l 07:00: Lovenox) [place] Lovenox 0 No Notes: Memoria 7-25 (Same as: l [...] Memoria 7-25 (Same as: l 07:00: Lovenox) [place] Lovenox No Notes: Memoria 7-25 (Same as: l 07:00: Lovenox) Tomas Lovenox No Notes: Memoria 7-25 (Same as: l 07:00: Lovenox) [place] Lovenox No Notes: Memoria 7-25 (Same as: l 07:00: Lovenox) [place] Lovenox No Notes: Memoria 7-25 (Same as: l 07:00: Lovenox) [place] Lovenox No Notes: Memoria 7-25 (Same as: l 07:00: Lovenox) [place] Saline No Notes: Memoria Flush 0.9% 7-25 (Same as: l 06:53: BD [place] 00 Posiflush) Saline No Notes: Memoria Flush 0.9% 7-25 (Same as: l 06:53: BD [place] 00 Posiflush) Saline No Notes: Memoria Flush 0.9% 7-25 (Same as: l 06:53: BD [place] 00 Posiflush) Saline No Notes: Memoria Flush 0.9% 7-25 (Same as: l 06:53: BD [place] 00 Posiflush) Saline No Notes: Memoria Flush 0.9% 7-25 (Same as: l 06:53: BD [place] 00 Posiflush) Saline No Notes: Memoria Flush 0.9% 7-25 (Same as: l 06:53: BD [place] 00 Posiflush) Saline No Notes: Memoria Flush 0.9% 7-25 (Same as: l 06:53: BD [place] 00 Posiflush) Saline No Notes: Memoria Flush 0.9% 7-25 (Same as: l 06:53: BD [place] 00 Posiflush) Saline No Notes: Memoria Flush 0.9% 7-25 (Same as: l 06:53: BD [place] 00 Posiflush) Saline No Notes: Memoria Flush 0.9% 7-25 (Same as: l 06:53: BD [place] 00 Posiflush) Saline No Notes: Memoria Flush 0.9% 7-25 (Same as: l 06:53: BD [place] 00 Posiflush) Saline No Notes: Memoria Flush 0.9% 7-25 (Same as: l 06:53: BD [place] 00 Posiflush) Saline No Notes: Memoria Flush 0.9% 7-25 (Same as: l 06:53: BD [place] 00 Posiflush) Saline No Notes: Memoria Flush 0.9% 7-25 (Same as: l 06:53: BD [place] 00 Posiflush) Saline No Notes: Memoria Flush 0.9% 7-25 (Same as: l 06:53: BD [place] 00 Posiflush) Saline No Notes: Memoria Flush 0.9% 7-25 (Same as: l 06:53: BD [place] 00 Posiflush) Saline No Notes: Memoria Flush 0.9% 7-25 (Same as: l 06:53: BD [place] 00 Posiflush) Saline No Notes: Memoria Flush 0.9% 7-25 (Same as: l 06:53: BD [place] 00 Posiflush) Saline No Notes: Memoria Flush 0.9% 7-25 (Same as: l 06:53: BD [place] 00 Posiflush) Saline No Notes: Memoria Flush 0.9% 7-25 (Same as: l 06:53: BD [place] 00 Posiflush) Saline No Notes: Memoria Flush 0.9% 7-25 (Same as: l 06:53: BD [place] 00 Posiflush) Saline No Notes: Memoria Flush 0.9% 7-25 (Same as: l 06:53: BD [place] 00 Posiflush) Saline No Notes: Memoria Flush 0.9% 7-25 (Same as: l 06:53: BD [place] 00 Posiflush) Saline No Notes: Memoria Flush 0.9% 7-25 (Same as: l 06:53: BD [place] 00 Posiflush) Saline No Notes: Memoria Flush 0.9% 7-25 (Same as: l 06:53: BD [place] 00 Posiflush) Saline No Notes: Memoria Flush 0.9% 7-25 (Same as: l 06:53: BD [place] 00 Posiflush) Saline No Notes: Memoria Flush 0.9% 7-25 (Same as: l 06:53: BD [place] 00 Posiflush) Saline No Notes: Memoria Flush 0.9% 7-25 (Same as: l 06:53: BD [place] 00 Posiflush) Saline No Notes: Memoria Flush 0.9% 7-25 (Same as: l 06:53: BD Tomas 00 Posiflush) Saline No Notes: Memoria Flush 0.9% 7-25 (Same as: l 06:53: BD [place] 00 Posiflush) Saline No Notes: Memoria Flush 0.9% 7-25 (Same as: l 06:53: BD [place] 00 Posiflush) Saline No Notes: Memoria Flush 0.9% 7-25 (Same as: l 06:53: BD [place] 00 Posiflush) Saline No Notes: Memoria Flush 0.9% 7-25 (Same as: l 06:53: BD [place] 00 Posiflush) Saline No Notes: Memoria Flush 0.9% 7-25 (Same as: l 06:53: BD [place] 00 Posiflush) Saline No Notes: Memoria Flush 0.9% 7-25 (Same as: l 06:53: BD [place] 00 Posiflush) Saline No Notes: Memoria Flush 0.9% 7-25 (Same as: l 06:53: BD [place] 00 Posiflush) Saline No Notes: Memoria Flush 0.9% 7-25 (Same as: l 06:53: BD [place] 00 Posiflush) Saline No Notes: Memoria Flush 0.9% 7-25 (Same as: l 06:53: BD [place] 00 Posiflush) Saline No Notes: Memoria Flush 0.9% 7-25 (Same as: l 06:53: BD [place] 00 Posiflush) Saline No Notes: Memoria Flush 0.9% 7-25 (Same as: l 06:53: BD [place] 00 Posiflush) Saline No Notes: Memoria Flush 0.9% 7-25 (Same as: l 06:53: BD [place] 00 Posiflush) Saline No Notes: Memoria Flush 0.9% 7-25 (Same as: l 06:53: BD T[place] 00 Posiflush) Saline No Notes: Memoria Flush 0.9% 7-25 (Same as: l 06:53: BD [place] 00 Posiflush) Saline No Notes: Memoria Flush 0.9% 7-25 (Same as: l 06:53: BD [place] 00 Posiflush) Saline No Notes: Memoria Flush 0.9% 7-25 (Same as: l 06:53: BD [place] 00 Posiflush) Saline No Notes: Memoria Flush 0.9% 7-25 (Same as: l 06:53: BD [place] 00 Posiflush) Saline No Notes: Memoria Flush 0.9% 7-25 (Same as: l 06:53: BD [place] 00 Posiflush) Saline No Notes: Memoria Flush 0.9% 7-25 (Same as: l 06:53: BD [place] Posiflush) Saline No Notes: Memoria Flush 0.9% 7-25 (Same as: l 06:53: BD [place] Posiflush) Saline No Notes: Memoria Flush 0.9% 7-25 (Same as: l 06:53: BD [place] Posiflush) Saline No Notes: Memoria Flush 0.9% 7-25 (Same as: l 06:53: BD [place] Posiflush) Saline No Notes: Memoria Flush 0.9% 7-25 (Same as: l 06:53: BD [place] Posiflush) Saline No Notes: Memoria Flush 0.9% 7-25 (Same as: l 06:53: BD [place] Posiflush) Dextrose No 25 mL, Memoria 50% [...] 06-13 not exceed l 06:51: 4 gm/day. [place] 00 (Same as: Tylenol) dextrometho No Notes: Sanya clementine rphan-guaiF 7-25 (dextromet l ENesin 10 06:51: horphan-gu He rmann mg-200 mg/5 00 aifenesin mL oral 10-100mg/5 liquid ml 10 ml oral SOLN ud) (Same as: Robitussin DM) hydrALAZINE No Notes: Sanya clementine 7-25 (Same as: l 06:51: Apresoline [place] 00 ) Push over 5 minutes Tessalon No Notes: Memoria Perles 7-25 (Same As: l 06:51: Tessalon Perles) "Do Not Crush" potassium No /= 14 Memoria chloride 7-25 Russian, l 06:51: march [place] 00 dissolve each 20 mEq tablet in 4 oz of water. Allow about 2 minutes for the tablets to disintegra te. Stir before giving to prepare slurry and administer . Please exclude patient's with feeding tube less than 14 Russian (Dobhoff, J-tube, etc) and pediatric and patients. [...] as: l 06:51: Mag-Ox 400) Magnesium oxide 178ik=586a g elemental magnesium Dose=____m g magnesium oxide [...] clementine 7-25 (Same as: l 06:51: Apresoline [place] 00 ) Push over 5 minutes Tessalon No Notes: Memoria Perles 7-25 (Same As: l 06:51: Tessalon Tomas 00 Perles) "Do Not Crush" potassium No /= 14 Memoria chloride 7-25 Russian, l 06:51: may [place] 00 dissolve each 20 mEq tablet in 4 oz of water. Allow about 2 minutes for the tablets to disintegra te. Stir before giving to prepare slurry and administer . Please exclude patient's with feeding tube less than 14 Russian (Dobhoff, J-tube, etc) and pediatric and patients. potassium No Notes: Memori a phosphate-s -25 (Same as: l odium 06:51: Phos-NaK) [place] phosphate 00 Each 1.5 250 mg-280 gm [...] as: l 06:51: Mag-Ox 400) Magnesium oxide 912uv=269g g elemental magnesium Dose=____m g magnesium oxide (___mg elemental magnesium) calcium No Notes: Memoria gluconate 06-13 WASTE: F/P l 06:51: - Sink; E [place] - [facility] Trash Bin calcium No Notes: Memoria gluconate + 06-13 WASTE: F/P l Sodium 06:51: - Sink; E Harish Chloride - 0.9% IV 120 [facility] mL Trash [...] clementine 7-25 (Same as: l 06:51: Apresoline [place] ) Push over 5 minutes Tessalon No Notes: Memoria Perles 7-25 (Same As: l 06:51: Tessalon Tomas 00 Perles) "Do Not Crush" potassium No /= 14 Memoria chloride 7-25 Russian, l 06:51: may [place]omas dissolve each 20 mEq tablet in 4 oz of water. Allow about 2 minutes for the tablets to disintegra te. Stir before giving to prepare slurry and administer . Please exclude patient's with feeding tube less than 14 Russian (Dobhoff, J-tube, etc) and pediatric and patients. [...] oxide -25 (Same as: l 06:51: Mag-Ox 400) Magnesium oxide 014so=538z g elemental magnesium Dose=____m g magnesium oxide [...] ___ mg melatonin No Notes: Memori a -25 (Same as: l 06:51: Melatonin) acetaminoph No Notes: Do M emoria en - not exceed l 06:51: 4 gm/day. (Same [...] Perles 7-25 (Same As: l 06:51: Tessalon [place] 00 Perles) "Do Not Crush" potassium No /= 14 Memoria chloride 7-25 Russian, l 06:51: march [place] 00 dissolve each 20 mEq tablet in 4 oz of water. Allow about 2 minutes for the tablets to disintegra te. Stir before giving to prepare slurry and administer . Please exclude patient's with feeding tube less than 14 Russian (Dobhoff, J-tube, etc) and pediatric and patients. [...] TPN. magnesium No Notes: Memori a sulfate - WASTE: F/P l 06:51: - Sink; E [place] - [facility] Trash Bin magnesium No Notes: Memori a oxide 7-25 (Same as: l 06:51: Mag-Ox 400) Magnesium oxide 074yp=810b g elemental magnesium Dose=____m g magnesium oxide (___mg elemental magnesium) calcium No Notes: Memoria gluconate 06-13 WASTE: F/P l 06:51: - Sink; E [place] - [facility] Trash Bin calcium No Notes: [...] clementine 7-25 (Same as: l 06:51: Apresoline [place] 00 ) Push over 5 minutes Tessalon No Notes: Memoria Perles 7-25 (Same As: l 06:51: Tessalon [place] 00 Perles) "Do Not Crush" potassium No /= 14 Memoria chloride 7-25 Russian, l 06:51: march [place] dissolve each 20 mEq tablet in 4 oz of water. Allow about 2 minutes for the tablets to disintegra te. Stir before giving to prepare slurry and administer . Please exclude patient's with feeding tube less than 14 Russian (Dobhoff, J-tube, etc) and pediatric and patients. potassium No Notes: Memori a phosphate-s 7-25 (Same as: l odium 06:51: Phos-NaK) [place] phosphate 00 Each 1.5 250 mg-280 gm pkt has mg-160 mg 250mg oral powder phosphorou for s. Mix reconstitut w/2.5oz ion water and stir. potassium No Notes: Memori a phosphate + 7-25 (Same as: l Sodium 06:51: K [place] Chloride 00 Phosphate. 0.9% IV 250 ) [...] oxide 7-25 (Same as: l 06:51: Mag-Ox [place] 00 400) Magnesium oxide 515yq=352b g elemental magnesium Dose=____m g magnesium oxide (___mg elemental magnesium) calcium No Notes: Memoria gluconate 06-13 WASTE: F/P l 06:51: - Sink; E [place] - [facility] Trash Bin calcium No Notes: Memoria gluconate + 06-13 WASTE: F/P l Sodium 06:51: - Sink; E Harish n Chloride - 0.9% IV 120 [facility] mL Trash [...] clementine 7-25 (Same as: l 06:51: Apresoline [place] 00 ) Push over 5 minutes Tessalon No Notes: Memoria Perles 7-25 (Same As: l 06:51: Tessalon [place] 00 Perles) "Do Not Crush" potassium No /= 14 Memoria chloride 7-25 Russian, l 06:51: may [place] 00 dissolve each 20 mEq tablet in 4 oz of water. Allow about 2 minutes for the tablets to disintegra te. Stir before giving to prepare slurry and administer . Please exclude patient's with feeding tube less than 14 Russian (Dobhoff, J-tube, etc) and pediatric and patients. potassium No Notes: Memori a phosphate-s 7-25 (Same as: l odium 06:51: Phos-NaK) [place] phosphate 00 Each 1.5 250 mg-280 gm pkt has mg-160 mg 250mg oral powder phosphorou for s. Mix reconstitut w/2.5oz ion water and stir. potassium No Notes: Memori a phosphate + 7-25 (Same as: l Sodium 06:51: K [place] Chloride 00 Phosphate. 0.9% IV 250 ) [...] 06:51: Mag-Ox [place] 00 400) Magnesium oxide 403gj=433b g elemental magnesium Dose=____m g magnesium oxide (___mg elemental magnesium) calcium No Notes: Memoria gluconate 06-13 WASTE: F/P l 06:51: - Sink; E [place] - [facility] Trash Bin calcium No Notes: [...] clementine 06-13 (Same as: l 06:51: Apresoline [place] 00 ) Push over 5 minutes Tessalon No Notes: Memoria Perles 7-25 (Same As: l 06:51: Tessalon Tomas Perles) "Do Not Crush" potassium No /= 14 Memoria chloride 7-25 Russian, l 06:51: may [place] 00 dissolve each 20 mEq tablet in 4 oz of water. Allow about 2 minutes for the tablets to disintegra te. Stir before giving to prepare slurry and administer . Please exclude patient's with feeding tube less than 14 Russian (Dobhoff, J-tube, etc) and pediatric and patients. [...] WASTE: F/P l 06:51: - Sink; E [place] 00 - [facility] Trash Bin magnesium No Notes: Memori a oxide 7-25 (Same as: l 06:51: Mag-Ox [place] 00 400) Magnesium oxide 455dr=510t g elemental magnesium Dose=____m g magnesium oxide (___mg elemental magnesium) calcium No Notes: Memoria gluconate 7-25 WASTE: F/P l 06:51: - Sink; E [place] - [facility] Trash Bin calcium No Notes: [...] Perles 7-25 (Same As: l 06:51: Tessalon [place] 00 Perles) "Do Not Crush" potassium No /= 14 Memoria chloride 7-25 Russian, l 06:51: march [place] 00 dissolve each 20 mEq tablet in 4 oz of water. Allow about 2 minutes for the tablets to disintegra te. Stir before giving to prepare slurry and administer . Please exclude patient's with feeding tube less than 14 Russian (Dobhoff, J-tube, etc) and pediatric and patients. potassium No Notes: Memori a phosphate-s 7-25 (Same as: l odium 06:51: Phos-NaK) [place] phosphate 00 Each 1.5 250 mg-280 gm pkt has mg-160 mg 250mg oral powder phosphorou for s. Mix reconstitut w/2.5oz ion water and stir. potassium No Notes: Memori a phosphate + 7-25 (Same as: l Sodium 06:51: K [place] Chloride 00 Phosphate. 0.9% IV 250 ) [...] WASTE: F/P l 06:51: - Sink; E [place] 00 - [facility] Trash Bin magnesium No Notes: Memori a oxide 7-25 (Same as: l 06:51: Mag-Ox [place] 00 400) Magnesium oxide 959jq=819c g elemental magnesium Dose=____m g magnesium oxide (___mg elemental magnesium) calcium No Notes: Memoria gluconate 7-25 WASTE: F/P l 06:51: - Sink; E [place] 00 - [facility] Trash Bin calcium No Notes: Memoria gluconate + 06-13 WASTE: F/P l Sodium 06:51: - Sink; E Harish n Chloride - 0.9% IV 120 [facility] mL Trash [...] Perles -25 (Same As: l 06:51: Tessalon Tomas 00 Perles) "Do Not Crush" potassium No /= 14 Memoria chloride 7-25 Russian, l 06:51: march [place] 00 dissolve each 20 mEq tablet in 4 oz of water. Allow about 2 minutes for the tablets to disintegra te. Stir before giving to prepare slurry and administer . Please exclude patient's with feeding tube less than 14 Russian (Dobhoff, J-tube, etc) and pediatric and patients. [...] 06:51: Mag-Ox [place] 00 400) Magnesium oxide 351lz=245z g elemental magnesium Dose=____m g magnesium oxide [...] 06:51: Tessalon Perles) "Do Not Crush" potassium 2022-0 No /= 14 Memoria chloride 7-25 Russian, l 06:51: march [place] 00 dissolve each 20 mEq tablet in 4 oz of water. Allow about 2 minutes for the tablets to disintegra te. Stir before giving to prepare slurry and administer . Please exclude patient's with feeding tube less than 14 Russian (Dobhoff, J-tube, etc) and pediatric and patients. potassium No Notes: Memori a phosphate-s 7-25 (Same as: l odium 06:51: Phos-NaK) T[place] phosphate 00 Each 1.5 250 mg-280 gm pkt has mg-160 mg 250mg oral powder phosphorou for s. Mix reconstitut w/2.5oz ion water and stir. potassium No Notes: Memori a phosphate + 7-25 (Same as: l Sodium 06:51: K [place] Chloride 00 Phosphate. 0.9% IV 250 ) [...] 06:51: Mag-Ox [place] 00 400) Magnesium oxide 526uq=536a g elemental magnesium Dose=____m g magnesium oxide [...] 5 minutes Tessalon No Notes: Memoria Perles - (Same As: l 06:51: Tessalon Perles) "Do Not Crush" potassium No /= 14 Memoria chloride - Alonzo l 06:51: may [place]omas 00 dissolve each 20 mEq tablet in 4 oz of water. Allow about 2 minutes for the tablets to disintegra te. Stir before giving to prepare slurry and administer . Please exclude patient's with feeding tube less than 14 Russian (Dobhoff, J-tube, etc) and pediatric and patients. potassium No Notes: Memori a phosphate-s 7-25 (Same as: l odium 06:51: Phos-NaK) [place] phosphate 00 Each 1.5 250 mg-280 gm pkt has mg-160 mg 250mg oral powder phosphorou for s. Mix reconstitut w/2.5oz ion water and stir. potassium No Notes: Memori a phosphate + 7-25 (Same as: l Sodium 06:51: K [place] Chloride 00 Phosphate. 0.9% IV 250 ) [...] WASTE: F/P l 06:51: - Sink; E [place] 00 - [facility] Trash Bin magnesium No Notes: Memori a oxide 7-25 (Same as: l 06:51: Mag-Ox [place] 00 400) Magnesium oxide 667sy=525y g elemental magnesium Dose=____m g magnesium oxide [...] Crush" potassium No /= 14 Memoria chloride - Russian, l 06:51: march dissolve each 20 mEq tablet in 4 oz of water. Allow about 2 minutes for the tablets to disintegra te. Stir before giving to prepare slurry and administer . Please exclude patient's with feeding tube less than 14 Russian (Dobhoff, J-tube, etc) and pediatric and patients. [...] 06:51: Mag-Ox [place] 00 400) Magnesium oxide 190rz=101v g elemental magnesium Dose=____m g magnesium oxide (___mg elemental magnesium) calcium No Notes: Memoria gluconate 06-13 WASTE: F/P l 06:51: - Sink; E [place] 00 - [facility] Trash Bin calcium No Notes: Memoria gluconate + 25 WASTE: F/P l Sodium 06:51: - Sink; [...] CDT, 0 ondansetron No Notes: Sanya clementine -25 (Same as: l 06:51: Zofran) MEDICATION WASTE [...] potassium No /= 14 Memoria chloride 7-25 Russian, l 06:51: march dissolve each 20 mEq tablet in 4 oz of water. Allow about 2 minutes for the tablets to disintegra te. Stir before giving to prepare slurry and administer . Please exclude patient's with feeding tube less than 14 Russian (Dobhoff, J-tube, etc) and pediatric and patients. potassium No Notes: Memori a phosphate-s 7-25 (Same as: l odium 06:51: Phos-NaK) [place] phosphate 00 Each 1.5 250 mg-280 gm pkt has mg-160 mg 250mg oral powder phosphorou for s. Mix reconstitut w/2.5oz ion water and stir. potassium No Notes: Memori a phosphate + 7-25 (Same as: l Sodium 06:51: K [place] Chloride 00 Phosphate. 0.9% IV 250 ) [...] WASTE: F/P l 06:51: - Sink; E [place] - [facility] Trash Bin magnesium No Notes: Memori a oxide 7-25 (Same as: l 06:51: Mag-Ox [place] 00 400) Magnesium oxide 146fy=702w g elemental magnesium Dose=____m g magnesium oxide (___mg elemental magnesium) calcium No Notes: Memoria gluconate 7-25 WASTE: F/P l 06:51: - Sink; E [place] - [facility] Trash Bin calcium No Notes: Memoria gluconate + 7-25 WASTE: F/P l Sodium 06:51: - Sink; E Harish n Chloride 00 - 0.9% IV 120 [facility] mL Trash Bin Dextrose No 25 mL, Memoria 50% Syringe 25 Route: l (D50W) 06:51: IVP, [place] 00 Dosing Weight 63.636, kg, PRN, PRN [...] ___ mg melatonin No Notes: Memori a -25 (Same as: l 06:51: Melatonin) acetaminoph No [...] Perles 7-25 (Same As: l 06:51: Tessalon Perles) "Do Not Crush" potassium No /= 14 Memoria chloride 7-25 Russian, l 06:51: march dissolve each 20 mEq tablet in 4 oz of water. Allow about 2 minutes for the tablets to disintegra te. Stir before giving to prepare slurry and administer . Please exclude patient's with feeding tube less than 14 Russian (Dobhoff, J-tube, etc) and pediatric and patients. potassium No Notes: Memori a phosphate-s 7-25 (Same as: l odium 06:51: Phos-NaK) [place] phosphate 00 Each 1.5 250 mg-280 gm pkt has mg-160 mg 250mg oral powder phosphorou for s. Mix reconstitut w/2.5oz ion water and stir. potassium No Notes: Memori a phosphate + 7-25 (Same as: l Sodium 06:51: K [place] Chloride 00 Phosphate. 0.9% IV 250 ) [...] 06:51: Mag-Ox Tomas 00 400) Magnesium oxide [id number] g elemental magnesium Dose=____m g magnesium oxide (___mg elemental magnesium) calcium No Notes: Memoria gluconate 7-25 WASTE: F/P l 06:51: - Sink; E [place] 00 - [facility] Trash Bin calcium No Notes: [facility]oria gluconate + 7-25 WASTE: F/P l Sodium 06:51: - Sink; E Harish n Chloride 00 - 0.9% IV 120 [facility] mL Trash Bin Dextrose No 25 mL, Memoria 50% Syringe 06-13 Route: l (D50W) 06:51: IVP, [place] 00 Dosing Weight 63.636, kg, PRN, PRN Blood Glucose Results, Start date: 06/13/22 1:51:00 CDT, Duration: 30 day, Stop date: 07/13/22 1:50:00 CDT glucagon No 1 mg, Memoria 725 Route: IM, l 06:51: Drug form: PDR/INJ, [...] potassium No /= 14 Memoria chloride 7-25 Russian, l 06:51: march dissolve each 20 mEq tablet in 4 oz of water. Allow about 2 minutes for the tablets to disintegra te. Stir before giving to prepare slurry and administer . Please exclude patient's with feeding tube less than 14 Russian (Dobhoff, J-tube, etc) and pediatric and patients. potassium No Notes: Memori a phosphate-s -25 (Same as: l odium 06:51: Phos-NaK) [place] phosphate 00 Each 1.5 250 mg-280 gm [...] TPN. magnesium No Notes: Memori a sulfate - WASTE: F/P l 06:51: - Sink; E [place] 00 - [facility] Trash Bin magnesium No Notes: Memori a oxide -25 (Same as: l 06:51: Mag-Ox [place] 00 400) Magnesium oxide 114fv=381q g elemental magnesium Dose=____m g magnesium oxide [...] Syringe 06-13 Route: l (D50W) 06:51: IVP, Tomas 00 [...] potassium No /= 14 Memoria chloride 7-25 Russian, l 06:51: may dissolve each 20 mEq tablet in 4 oz of water. Allow about 2 minutes for the tablets to disintegra te. Stir before giving to prepare slurry and administer . Please exclude patient's with feeding tube less than 14 Russian (Dobhoff, J-tube, etc) and pediatric and patients. [...] WASTE: F/P l 06:51: - Sink; E [place] - [facility] Trash Bin magnesium No Notes: Memori a oxide 7-25 (Same as: l 06:51: Mag-Ox Tomas 00 400) Magnesium oxide 638zi=938i g elemental magnesium Dose=____m g magnesium oxide (___mg elemental magnesium) calcium No Notes: Memoria gluconate 7-25 WASTE: F/P l 06:51: - Sink; E [place] - [facility] Trash Bin calcium No Notes: Memoria gluconate + 7-25 WASTE: F/P l Sodium 06:51: - Sink; E Harish n Chloride 00 - 0.9% IV 120 [facility] mL Trash Bin Dextrose No 25 mL, Memoria 50% Syringe 7-25 Route: l (D50W) 06:51: IVP, [place] 00 Dosing Weight 63.636, kg, PRN, PRN [...] potassium No /= 14 Memoria chloride -25 Russian, l 06:51: march dissolve each 20 mEq tablet in 4 oz of water. Allow about 2 minutes for the tablets to disintegra te. Stir before giving to prepare slurry and administer . Please exclude patient's with feeding tube less than 14 Russian (Dobhoff, J-tube, etc) and pediatric and patients. [...] 06:51: Mag-Ox Tomas 00 400) Magnesium oxide 173it=306j g elemental magnesium Dose=____m g magnesium oxide [...] Syringe 25 Route: l (D50W) 06:51: IVP, [place] 00 Dosing Weight 63.636, kg, PRN, PRN [...] potassium No /= 14 Memoria chloride 7-25 Russian, l 06:51: may dissolve each 20 mEq tablet in 4 oz of water. Allow about 2 minutes for the tablets to disintegra te. Stir before giving to prepare slurry and administer . Please exclude patient's with feeding tube less than 14 Russian (Dobhoff, J-tube, etc) and pediatric and patients. [...] oxide -25 (Same as: l 06:51: Mag-Ox [place] 00 400) Magnesium oxide 168np=024l g elemental magnesium Dose=____m g magnesium oxide (___mg elemental magnesium) calcium No Notes: Memoria gluconate -25 WASTE: F/P l 06:51: - Sink; E [place] - [facility] Trash Bin calcium No Notes: [...] day, Stop date: 07/13/22 1:50:00 CDT glucagon 2021- No 1 mg, Memoria 25 Route: IM, [...] potassium No /= 14 Memoria chloride 7-25 Russian, l 06:51: march dissolve each 20 mEq tablet in 4 oz of water. Allow about 2 minutes for the tablets to disintegra te. Stir before giving to prepare slurry and administer . Please exclude patient's with feeding tube less than 14 Russian (Dobhoff, J-tube, etc) and pediatric and patients. [...] 06:51: Mag-Ox Tomas 00 400) Magnesium oxide 428nt=952v g elemental magnesium Dose=____m g magnesium oxide (___mg elemental magnesium) calcium No Notes: Memoria gluconate -25 WASTE: F/P l 06:51: - Sink; E [place] - [facility] Trash Bin calcium No Notes: Memoria gluconate + 7-25 WASTE: F/P l Sodium 06:51: - Sink; E Harish n Chloride 00 - 0.9% IV 120 [facility] mL Trash Bin Dextrose No 25 mL, Memoria 50% Syringe 06-13 Route: l (D50W) 06:51: IVP, Tomas 00 [...] potassium No /= 14 Memoria chloride 7-25 Russian, l 06:51: march dissolve each 20 mEq tablet in 4 oz of water. Allow about 2 minutes for the tablets to disintegra te. Stir before giving to prepare slurry and administer . Please exclude patient's with feeding tube less than 14 Russian (Dobhoff, J-tube, etc) and pediatric and patients. potassium No Notes: Memori a phosphate-s 06-13 (Same as: l odium 06:51: Phos-NaK) phosphate 00 Each 1.5 250 mg-280 gm pkt has mg-160 mg 250mg oral powder phosphorou for s. Mix reconstitut w/2.5oz ion water and stir. potassium No Notes: Memori a phosphate + 06-13 (Same as: l Sodium 06:51: K Chloride 00 Phosphate. 0.9% IV 250 ) Do not mL infuse phosphorou s concurrent ly in the same line as TPN or IVF that contains calcium. For double lumen central lines, phosphorou s may be infused in a separate lumen from TPN. 1 mMol phoshate has 1.47 mEq potassium Infuse over 4 hours sodium No Notes: Memoria phosphate + 25 Infuse l Dextrose 5% 06:51: over 4 [...] Bin magnesium No Notes: Memori a oxide 25 (Same as: l 06:51: Mag-Ox 400) Magnesium oxide 603gh=559u g elemental magnesium Dose=____m g magnesium oxide (___mg elemental magnesium) calcium No Notes: Memoria gluconate 06-13 WASTE: F/P l 06:51: - Sink; E Tomas - [facility] Trash Bin calcium No Notes: Memoria gluconate + 25 WASTE: F/P l Sodium 06:51: - Sink; [...] potassium No /= 14 Memoria chloride 7-25 Russian, l 06:51: may dissolve each 20 mEq tablet in 4 oz of water. Allow about 2 minutes for the tablets to disintegra te. Stir before giving to prepare slurry and administer . Please exclude patient's with feeding tube less than 14 Russian (Dobhoff, J-tube, etc) and pediatric and patients. potassium No Notes: Memori a phosphate-s 06-13 (Same as: l odium 06:51: Phos-NaK) phosphate Each 1.5 250 mg-280 gm pkt has [...] hours sodium No Notes: Memoria phosphate + - Infuse l Dextrose 5% 06:51: over 4 [...] as: l 06:51: Mag-Ox 400) Magnesium oxide 438vw=483y g elemental magnesium Dose=____m g magnesium oxide (___mg elemental magnesium) calcium No Notes: Memoria gluconate 06-13 WASTE: F/P l 06:51: - Sink; E - [facility] Trash Bin calcium No Notes: Memoria gluconate + 25 WASTE: F/P l Sodium 06:51: - Sink; [...] Crush" potassium No /= 14 Memoria chloride 06-13 Russian, l 06:51: march dissolve each 20 mEq tablet in 4 oz of water. Allow about 2 minutes for the tablets to disintegra te. Stir before giving to prepare slurry and administer . Please exclude patient's with feeding tube less than 14 Russian (Dobhoff, J-tube, etc) and pediatric and patients. potassium No Notes: Memori a phosphate-s 06-13 (Same as: l odium 06:51: Phos-NaK) phosphate Each 1.5 250 mg-280 gm pkt has mg-160 mg 250mg oral powder phosphorou for s. Mix reconstitut w/2.5oz ion water and stir. potassium No Notes: Memori a phosphate + 06-13 (Same as: l Sodium 06:51: K Chloride 00 Phosphate. 0.9% IV 250 ) [...] oxide -25 (Same as: l 06:51: Mag-Ox 400) Magnesium oxide 279ez=745b g elemental magnesium Dose=____m g magnesium oxide (___mg elemental magnesium) calcium No Notes: Memoria gluconate 06-13 WASTE: F/P l 06:51: - Sink; E - [facility] Trash Bin calcium No Notes: Memoria gluconate + 25 WASTE: F/P l Sodium 06:51: - Sink; [...] CDT, 0 ondansetron No Notes: Sanya clementine -25 (Same as: l 06:51: Zofran) MEDICATION WASTE Product Size: 4 mg Product Wasted: ___ mg melatonin No Notes: Memori a - (Same as: l 06:51: Melatonin) acetaminoph No Notes: Do M emoria en 06-13 not exceed l 06:51: 4 gm/day. [place] 00 (Same as: Tylenol) dextrometho No Notes: [...] potassium No /= 14 Memoria chloride -25 Russian, l 06:51: march dissolve each 20 mEq tablet in 4 oz of water. Allow about 2 minutes for the tablets to disintegra te. Stir before giving to prepare slurry and administer . Please exclude patient's with feeding tube less than 14 Russian (Dobhoff, J-tube, etc) and pediatric and patients. potassium No Notes: Memori a phosphate-s 06-13 (Same as: l odium 06:51: Phos-NaK) phosphate 00 Each 1.5 250 mg-280 gm pkt has mg-160 mg 250mg oral powder phosphorou for s. Mix reconstitut w/2.5oz ion water and stir. potassium No Notes: Memori a phosphate + 06-13 (Same as: l Sodium 06:51: K [place] Chloride 00 Phosphate. 0.9% IV 250 ) Do not mL infuse phosphorou s concurrent ly in the same line as TPN or IVF that contains calcium. For double lumen central lines, phosphorou s may be infused in a separate lumen from TPN. 1 mMol phoshate has 1.47 mEq potassium Infuse over 4 hours sodium No Notes: Memoria phosphate + 06-13 Infuse l Dextrose 5% 06:51: over 4 [...] WASTE: F/P l 06:51: - Sink; E [place] 00 - [facility] Trash Bin magnesium No Notes: Memori a oxide 06-13 (Same as: l 06:51: Mag-Ox 400) Magnesium oxide 716bm=140y g elemental magnesium Dose=____m g magnesium oxide [...] CDT, 0 ondansetron No Notes: Sanya clementine -25 (Same as: l 06:51: Zofran) MEDICATION WASTE Product Size: 4 mg Product Wasted: ___ mg melatonin No Notes: Memori a 7-25 (Same as: l 06:51: Melatonin) [place] 00 acetaminoph No Notes: Do M emoria en 06-13 not exceed l 06:51: 4 gm/day. [place] (Same as: Tylenol) dextrometho No Notes: Sanya [...] potassium No /= 14 Memoria chloride 7-25 Russian, l 06:51: may dissolve each 20 mEq tablet in 4 oz of water. Allow about 2 minutes for the tablets to disintegra te. Stir before giving to prepare slurry and administer . Please exclude patient's with feeding tube less than 14 Russian (Dobhoff, J-tube, etc) and pediatric and patients. potassium No Notes: Memori a phosphate-s 06-13 (Same as: l odium 06:51: Phos-NaK) [place] phosphate 00 Each 1.5 250 mg-280 gm pkt has mg-160 mg 250mg oral powder phosphorou for s. Mix reconstitut w/2.5oz ion water and stir. potassium No Notes: Memori a phosphate + 06-13 (Same as: l Sodium 06:51: K [place] Chloride 00 Phosphate. 0.9% IV 250 ) [...] as: l 06:51: Mag-Ox 400) Magnesium oxide 145vj=077s g elemental magnesium Dose=____m g magnesium oxide [...] ___ mg melatonin No Notes: Memori a -25 (Same as: l 06:51: Melatonin) acetaminoph No Notes: Do M emoria en 06-13 not exceed l 06:51: 4 gm/day. [place] 00 (Same as: Tylenol) dextrometho No Notes: Sanya clementine rphan-guaiF 06-13 (dextromet l ENesin 10 06:51: horphan-gu He rmann mg-200 mg/5 00 aifenesin mL oral 10-100mg/5 liquid ml 10 ml oral SOLN ud) (Same as: Robitussin DM) hydrALAZINE No Notes: Sanya clementine 06-13 (Same as: l 06:51: Apresoline [place] 00 ) Push over 5 minutes Tessalon No Notes: Memoria Perles 06-13 (Same As: l 06:51: Tessalon Perles) "Do Not Crush" potassium No /= 14 Memoria chloride -25 Russian, l 06:51: may dissolve each 20 mEq tablet in 4 oz of water. Allow about 2 minutes for the tablets to disintegra te. Stir before giving to prepare slurry and administer . Please exclude patient's with feeding tube less than 14 Russian (Dobhoff, J-tube, etc) and pediatric and patients. potassium No Notes: Memori a phosphate-s 06-13 (Same as: l odium 06:51: Phos-NaK) [place] phosphate 00 Each 1.5 250 mg-280 gm pkt has mg-160 mg 250mg oral powder phosphorou for s. Mix reconstitut w/2.5oz ion water and stir. potassium No Notes: Memori a phosphate + 25 (Same as: l Sodium 06:51: K Tomas [...] as: l 06:51: Mag-Ox 400) Magnesium oxide 313dz=165n g elemental magnesium Dose=____m g magnesium oxide [...] 06-13 not exceed l 06:51: 4 gm/day. Tomas [...] Perles 7-25 (Same As: l 06:51: Tessalon Perles) "Do Not Crush" potassium No /= 14 Memoria chloride 7-25 Russian, l 06:51: march Tomas 00 dissolve each 20 mEq tablet in 4 oz of water. Allow about 2 minutes for the tablets to disintegra te. Stir before giving to prepare slurry and administer . Please exclude patient's with feeding tube less than 14 Russian (Dobhoff, J-tube, etc) and pediatric and patients. potassium No Notes: Memori a phosphate-s -25 (Same as: l odium 06:51: Phos-NaK) [place] phosphate 00 Each 1.5 250 mg-280 gm [...] as: l 06:51: Mag-Ox 400) Magnesium oxide 306ds=103x g elemental magnesium Dose=____m g magnesium oxide [...] clementine 7-25 (Same as: l 06:51: Apresoline [place] 00 ) Push over 5 minutes Tess[place]on No Notes: Memoria Perles 7-25 (Same As: l 06:51: Tessalon Tomas 00 Perles) "Do Not Crush" potassium No /= 14 Memoria chloride 7-25 Russian, l 06:51: may Tomas 00 dissolve each 20 mEq tablet in 4 oz of water. Allow about 2 minutes for the tablets to disintegra te. Stir before giving to prepare slurry and administer . Please exclude patient's with feeding tube less than 14 Russian (Dobhoff, J-tube, etc) and pediatric and patients. [...] as: l 06:51: Mag-Ox 400) Magnesium oxide 306sr=589f g elemental magnesium Dose=____m g magnesium oxide (___mg elemental magnesium) calcium No Notes: Memoria gluconate 06-13 WASTE: F/P l 06:51: - Sink; E [place] - [facility] Trash Bin calcium No Notes: Memoria gluconate + 06-13 WASTE: F/P l Sodium 06:51: - Sink; E Harish Chloride - 0.9% IV 120 [facility] mL Trash [...] clementine 7-25 (Same as: l 06:51: Apresoline [place] ) Push over 5 minutes [place]on No Notes: Memoria Perles 7-25 (Same As: l 06:51: Tessalon [place] 00 Perles) "Do Not Crush" potassium No /= 14 Memoria chloride 7-25 Russian, l 06:51: may Tomas dissolve each 20 mEq tablet in 4 oz of water. Allow about 2 minutes for the tablets to disintegra te. Stir before giving to prepare slurry and administer . Please exclude patient's with feeding tube less than 14 Russian (Dobhoff, J-tube, etc) and pediatric and patients. potassium No Notes: Memori a phosphate-s - (Same as: l odium 06:51: Phos-NaK) [place] phosphate 00 Each 1.5 250 mg-280 gm [...] WASTE: F/P l 06:51: - Sink; E [place] 00 - [facility] Trash Bin magnesium No Notes: Memori a oxide -25 (Same as: l 06:51: Mag-Ox 400) Magnesium oxide 046cj=931y g elemental magnesium Dose=____m g magnesium oxide [...] ___ mg melatonin No Notes: Memori a -25 (Same as: l 06:51: Melatonin) acetaminoph No Notes: Do M emoria en - not exceed l 06:51: 4 gm/day. (Same as: Tylenol) dextrometho No Notes: Sanya clementine rphan-guaiF 7-25 (dextromet l ENesin 10 06:51: horphan-gu He rmann mg-200 mg/5 00 aifenesin mL oral 10-100mg/5 liquid ml 10 ml oral SOLN ud) (Same as: Robitussin DM) hydrALAZINE No Notes: Sanya clementine 7-25 (Same as: l 06:51: Apresoline [place] 00 ) Push over 5 minutes [place] No Notes: Memoria Perles 7-25 (Same As: l 06:51: Tessalon Tomas 00 Perles) "Do Not Crush" potassium No /= 14 Memoria chloride 7-25 Russian, l 06:51: march [place] 00 dissolve each 20 mEq tablet in 4 oz of water. Allow about 2 minutes for the tablets to disintegra te. Stir before giving to prepare slurry and administer . Please exclude patient's with feeding tube less than 14 Russian (Dobhoff, J-tube, etc) and pediatric and patients. potassium No Notes: Memori a phosphate-s 7-25 (Same as: l odium 06:51: Phos-NaK) [place] phosphate 00 Each 1.5 250 mg-280 gm pkt has mg-160 mg 250mg oral powder phosphorou for s. Mix reconstitut w/2.5oz ion water and stir. potassium No Notes: Memori a phosphate + 7-25 (Same as: l Sodium 06:51: K [place] Chloride 00 Phosphate. 0.9% IV 250 ) [...] TPN. magnesium No Notes: Memori a sulfate - WASTE: F/P l 06:51: - Sink; E [place] - [facility] Trash Bin magnesium No Notes: Memori a oxide 7-25 (Same as: l 06:51: Mag-Ox 400) Magnesium oxide 446qp=490p g elemental magnesium Dose=____m g magnesium oxide (___mg elemental magnesium) calcium No Notes: Memoria gluconate 06-13 WASTE: F/P l 06:51: - Sink; E [place] - [facility] Trash Bin calcium No Notes: [...] clementine 7-25 (Same as: l 06:51: Apresoline [place] 00 ) Push over 5 minutes [place] No Notes: Memoria Perles 7-25 (Same As: l 06:51: Tessalon [place] 00 Perles) "Do Not Crush" potassium No /= 14 Memoria chloride 7-25 Russian, l 06:51: march [place] dissolve each 20 mEq tablet in 4 oz of water. Allow about 2 minutes for the tablets to disintegra te. Stir before giving to prepare slurry and administer . Please exclude patient's with feeding tube less than 14 Russian (Dobhoff, J-tube, etc) and pediatric and patients. potassium No Notes: Memori a phosphate-s 7-25 (Same as: l odium 06:51: Phos-NaK) Tomas phosphate 00 Each 1.5 250 mg-280 gm pkt has mg-160 mg 250mg oral powder phosphorou for s. Mix reconstitut w/2.5oz ion water and stir. potassium No Notes: Memori a phosphate + 7-25 (Same as: l Sodium 06:51: K [place] Chloride 00 Phosphate. 0.9% IV 250 ) [...] WASTE: F/P l 06:51: - Sink; E [place] 00 - [facility] Trash Bin magnesium No Notes: Memori a oxide 7-25 (Same as: l 06:51: Mag-Ox [place] 00 400) Magnesium oxide 746qt=654e g elemental magnesium Dose=____m g magnesium oxide (___mg elemental magnesium) calcium No Notes: Memoria gluconate 06-13 WASTE: F/P l 06:51: - Sink; E Tomas - [facility] Trash Bin calcium No Notes: Memoria gluconate + 06-13 WASTE: F/P l Sodium 06:51: - Sink; E Harish n Chloride - 0.9% IV 120 [facility] mL Trash [...] clementine 7-25 (Same as: l 06:51: Apresoline [place] 00 ) Push over 5 minutes [place] No Notes: Memoria Perles 7-25 (Same As: l 06:51: Tessalon [place] 00 Perles) "Do Not Crush" potassium No /= 14 Memoria chloride 7-25 Russian, l 06:51: may [place] 00 dissolve each 20 mEq tablet in 4 oz of water. Allow about 2 minutes for the tablets to disintegra te. Stir before giving to prepare slurry and administer . Please exclude patient's with feeding tube less than 14 Russian (Dobhoff, J-tube, etc) and pediatric and patients. potassium No Notes: Memori a phosphate-s 7-25 (Same as: l odium 06:51: Phos-NaK) [place] phosphate 00 Each 1.5 250 mg-280 gm pkt has mg-160 mg 250mg oral powder phosphorou for s. Mix reconstitut w/2.5oz ion water and stir. potassium No Notes: Memori a phosphate + 7-25 (Same as: l Sodium 06:51: K [place] Chloride 00 Phosphate. 0.9% IV 250 ) [...] oxide 7-25 (Same as: l 06:51: Mag-Ox [place] 00 400) Magnesium oxide 068lw=726p g elemental magnesium Dose=____m g magnesium oxide [...] clementine 06-13 (Same as: l 06:51: Apresoline Tomas 00 ) Push over 5 minutes Tess[place]on No Notes: Memoria Perles 7-25 (Same As: l 06:51: Tessalon [place] Perles) "Do Not Crush" potassium No /= 14 Memoria chloride 7-25 Russian, l 06:51: may [place] 00 dissolve each 20 mEq tablet in 4 oz of water. Allow about 2 minutes for the tablets to disintegra te. Stir before giving to prepare slurry and administer . Please exclude patient's with feeding tube less than 14 Russian (Dobhoff, J-tube, etc) and pediatric and patients. potassium No Notes: Memori a phosphate-s 7-25 (Same as: l odium 06:51: Phos-NaK) Tomas phosphate 00 Each 1.5 250 mg-280 gm pkt has mg-160 mg 250mg oral powder phosphorou for s. Mix reconstitut w/2.5oz ion water and stir. potassium No Notes: Memori a phosphate + 7-25 (Same as: l Sodium 06:51: K [place] Chloride 00 Phosphate. 0.9% IV 250 ) [...] oxide 7-25 (Same as: l 06:51: Mag-Ox [place] 00 400) Magnesium oxide 479dd=152c g elemental magnesium Dose=____m g magnesium oxide (___mg elemental magnesium) calcium No Notes: Memoria gluconate 7-25 WASTE: F/P l 06:51: - Sink; E [place] - [facility] Trash Bin calcium No Notes: [...] Perles 7-25 (Same As: l 06:51: Tessalon Tomas 00 Perles) "Do Not Crush" potassium No /= 14 Memoria chloride 7-25 Russian, l 06:51: march Tomas 00 dissolve each 20 mEq tablet in 4 oz of water. Allow about 2 minutes for the tablets to disintegra te. Stir before giving to prepare slurry and administer . Please exclude patient's with feeding tube less than 14 Russian (Dobhoff, J-tube, etc) and pediatric and patients. potassium No Notes: Memori a phosphate-s 7-25 (Same as: l odium 06:51: Phos-NaK) [place] phosphate 00 Each 1.5 250 mg-280 gm pkt has mg-160 mg 250mg oral powder phosphorou for s. Mix reconstitut w/2.5oz ion water and stir. potassium No Notes: Memori a phosphate + 7-25 (Same as: l Sodium 06:51: K [place] Chloride 00 Phosphate. 0.9% IV 250 ) [...] WASTE: F/P l 06:51: - Sink; E [place] 00 - [facility] Trash Bin magnesium No Notes: Memori a oxide 7-25 (Same as: l 06:51: Mag-Ox [place] 00 400) Magnesium oxide 624rk=106o g elemental magnesium Dose=____m g magnesium oxide (___mg elemental magnesium) calcium No Notes: Memoria gluconate 7-25 WASTE: F/P l 06:51: - Sink; E [place] 00 - [facility] Trash Bin calcium No Notes: Memoria gluconate + 06-13 WASTE: F/P l Sodium 06:51: - Sink; E Harish n Chloride - 0.9% IV 120 [facility] mL Trash [...] Perles -25 (Same As: l 06:51: Tessalon Tomas 00 Perles) "Do Not Crush" potassium No /= 14 Memoria chloride 7-25 Russian, l 06:51: march [place] 00 dissolve each 20 mEq tablet in 4 oz of water. Allow about 2 minutes for the tablets to disintegra te. Stir before giving to prepare slurry and administer . Please exclude patient's with feeding tube less than 14 Russian (Dobhoff, J-tube, etc) and pediatric and patients. potassium No Notes: Memori a phosphate-s 7-25 (Same as: l odium 06:51: Phos-NaK) [place] phosphate 00 Each 1.5 250 mg-280 gm pkt has mg-160 mg 250mg oral powder phosphorou for s. Mix reconstitut w/2.5oz ion water and stir. potassium No Notes: Memori a phosphate + 7-25 (Same as: l Sodium 06:51: K [place] Chloride 00 Phosphate. 0.9% IV 250 ) [...] 06:51: Mag-Ox Tomas 00 400) Magnesium oxide 509vu=499f g elemental magnesium Dose=____m g magnesium oxide [...] (Same as: Robitussin DM) hydrALAZINE No Notes: Snaya clementine 25 (Same as: l 06:51: Apresoline ) Push over 5 minutes [place]on No Notes: Memoria Perles 06-13 (Same As: l 06:51: Tessalon Perles) "Do Not Crush" potassium 2022-0 No /= 14 Memoria chloride 7-25 Russian, l 06:51: march Tomas 00 dissolve each 20 mEq tablet in 4 oz of water. Allow about 2 minutes for the tablets to disintegra te. Stir before giving to prepare slurry and administer . Please exclude patient's with feeding tube less than 14 Russian (Dobhoff, J-tube, etc) and pediatric and patients. [...] WASTE: F/P l 06:51: - Sink; E [place] - [facility] Trash Bin magnesium No Notes: Memori a oxide 7-25 (Same as: l 06:51: Mag-Ox [place] 00 400) Magnesium oxide 847kd=838k g elemental magnesium Dose=____m g magnesium oxide (___mg elemental magnesium) calcium No Notes: Memoria gluconate 7-25 WASTE: F/P l 06:51: - Sink; E [place] - [facility] Trash Bin calcium No Notes: [...] 5 minutes Tessalon No Notes: Memoria Perles - (Same As: l 06:51: Tessalon Perles) "Do Not Crush" potassium No /= 14 Memoria chloride - Alonzo l 06:51: may Tomas 00 dissolve each 20 mEq tablet in 4 oz of water. Allow about 2 minutes for the tablets to disintegra te. Stir before giving to prepare slurry and administer . Please exclude patient's with feeding tube less than 14 Russian (Dobhoff, J-tube, etc) and pediatric and patients. [...] 06:51: Mag-Ox Tomas 00 400) Magnesium oxide 639hq=926d g elemental magnesium Dose=____m g magnesium oxide [...] Crush" potassium No /= 14 Memoria chloride - Russian, l 06:51: march dissolve each 20 mEq tablet in 4 oz of water. Allow about 2 minutes for the tablets to disintegra te. Stir before giving to prepare slurry and administer . Please exclude patient's with feeding tube less than 14 Russian (Dobhoff, J-tube, etc) and pediatric and patients. potassium No Notes: Memori a phosphate-s -25 (Same as: l odium 06:51: Phos-NaK) [place] phosphate 00 Each 1.5 250 mg-280 gm [...] 06:51: Mag-Ox Tomas 00 400) Magnesium oxide 731ug=908t g elemental magnesium Dose=____m g magnesium oxide (___mg elemental magnesium) calcium No Notes: Memoria gluconate 06-13 WASTE: F/P l 06:51: - Sink; E [place] 00 - [facility] Trash Bin calcium No Notes: Memoria gluconate + 25 WASTE: F/P l Sodium 06:51: - Sink; [...] CDT, 0 ondansetron No Notes: Sanya clementine -25 (Same as: l 06:51: Zofran) MEDICATION WASTE [...] potassium No /= 14 Memoria chloride 7-25 Russian, l 06:51: march dissolve each 20 mEq tablet in 4 oz of water. Allow about 2 minutes for the tablets to disintegra te. Stir before giving to prepare slurry and administer . Please exclude patient's with feeding tube less than 14 Russian (Dobhoff, J-tube, etc) and pediatric and patients. potassium No Notes: Memori a phosphate-s 7-25 (Same as: l odium 06:51: Phos-NaK) [place] phosphate 00 Each 1.5 250 mg-280 gm pkt has mg-160 mg 250mg oral powder phosphorou for s. Mix reconstitut w/2.5oz ion water and stir. potassium No Notes: Memori a phosphate + 7-25 (Same as: l Sodium 06:51: K [place] Chloride 00 Phosphate. 0.9% IV 250 ) [...] WASTE: F/P l 06:51: - Sink; E [place] - [facility] Trash Bin magnesium No Notes: Memori a oxide 7-25 (Same as: l 06:51: Mag-Ox [place] 00 400) Magnesium oxide 232lr=200h g elemental magnesium Dose=____m g magnesium oxide [...] ___ mg melatonin No Notes: Memori a -25 (Same as: l 06:51: Melatonin) acetaminoph No [...] Perles 7-25 (Same As: l 06:51: Tessalon Perles) "Do Not Crush" potassium No /= 14 Memoria chloride 7-25 Russian, l 06:51: march dissolve each 20 mEq tablet in 4 oz of water. Allow about 2 minutes for the tablets to disintegra te. Stir before giving to prepare slurry and administer . Please exclude patient's with feeding tube less than 14 Russian (Dobhoff, J-tube, etc) and pediatric and patients. potassium No Notes: Memori a phosphate-s 7-25 (Same as: l odium 06:51: Phos-NaK) [place] phosphate 00 Each 1.5 250 mg-280 gm pkt has mg-160 mg 250mg oral powder phosphorou for s. Mix reconstitut w/2.5oz ion water and stir. potassium No Notes: Memori a phosphate + 7-25 (Same as: l Sodium 06:51: K [place] Chloride 00 Phosphate. 0.9% IV 250 ) [...] 06:51: Mag-Ox [place] 00 400) Magnesium oxide 320ct=039v g elemental magnesium Dose=____m g magnesium oxide [...] Syringe 06-13 Route: l (D50W) 06:51: IVP, [place] 00 Dosing Weight 63.636, kg, PRN, PRN Blood Glucose Results, Start date: 06/13/22 1:51:00 CDT, Duration: 30 day, Stop date: 07/13/22 1:50:00 CDT glucagon No 1 mg, Memoria 725 Route: IM, l 06:51: Drug form: PDR/INJ, [...] potassium No /= 14 Memoria chloride 7-25 Russian, l 06:51: march dissolve each 20 mEq tablet in 4 oz of water. Allow about 2 minutes for the tablets to disintegra te. Stir before giving to prepare slurry and administer . Please exclude patient's with feeding tube less than 14 Russian (Dobhoff, J-tube, etc) and pediatric and patients. potassium No Notes: Memori a phosphate-s -25 (Same as: l odium 06:51: Phos-NaK) [place] phosphate 00 Each 1.5 250 mg-280 gm [...] TPN. magnesium No Notes: Memori a sulfate - WASTE: F/P l 06:51: - Sink; E [place] 00 - [facility] Trash Bin magnesium No Notes: Memori a oxide -25 (Same as: l 06:51: Mag-Ox [place] 00 400) Magnesium oxide 875yy=743i g elemental magnesium Dose=____m g magnesium oxide (___mg elemental magnesium) calcium No Notes: Memoria gluconate -25 WASTE: F/P l 06:51: - Sink; E [place] 00 - [facility] Trash Bin calcium No Notes: Memoria gluconate + 7-25 WASTE: F/P l Sodium 06:51: - Sink; E Harish n Chloride 00 - 0.9% IV 120 [facility] mL Trash Bin Dextrose No 25 mL, Memoria 50% Syringe 06-13 Route: l (D50W) 06:51: IVP, Tomas 00 [...] potassium No /= 14 Memoria chloride 7-25 Russian, l 06:51: may dissolve each 20 mEq tablet in 4 oz of water. Allow about 2 minutes for the tablets to disintegra te. Stir before giving to prepare slurry and administer . Please exclude patient's with feeding tube less than 14 Russian (Dobhoff, J-tube, etc) and pediatric and patients. potassium No Notes: Memori a phosphate-s 06-13 (Same as: l odium 06:51: Phos-NaK) phosphate 00 Each 1.5 250 mg-280 gm pkt has mg-160 mg 250mg oral powder phosphorou for s. Mix reconstitut w/2.5oz ion water and stir. potassium No Notes: Memori a phosphate + 7-25 (Same as: l Sodium 06:51: K [place] Chloride 00 Phosphate. 0.9% IV 250 ) [...] 06:51: Mag-Ox [place] 00 400) Magnesium oxide 766eo=157z g elemental magnesium Dose=____m g magnesium oxide (___mg elemental magnesium) calcium No Notes: Memoria gluconate 7-25 WASTE: F/P l 06:51: - Sink; E [place] - [facility] Trash Bin calcium No Notes: Memoria gluconate + 7-25 WASTE: F/P l Sodium 06:51: - Sink; E Harish n Chloride 00 - 0.9% IV 120 [facility] mL Trash Bin Dextrose No 25 mL, Memoria 50% Syringe 7-25 Route: l (D50W) 06:51: IVP, [place] 00 Dosing Weight 63.636, kg, PRN, PRN [...] potassium No /= 14 Memoria chloride -25 Russian, l 06:51: march dissolve each 20 mEq tablet in 4 oz of water. Allow about 2 minutes for the tablets to disintegra te. Stir before giving to prepare slurry and administer . Please exclude patient's with feeding tube less than 14 Russian (Dobhoff, J-tube, etc) and pediatric and patients. potassium No Notes: Memori a phosphate-s 06-13 (Same as: l odium 06:51: Phos-NaK) phosphate 00 Each 1.5 250 mg-280 gm pkt has mg-160 mg 250mg oral powder phosphorou for s. Mix reconstitut w/2.5oz ion water and stir. potassium No Notes: Memori a phosphate + 7-25 (Same as: l Sodium 06:51: K [place] Chloride 00 Phosphate. 0.9% IV 250 ) [...] 06:51: Mag-Ox [place] 00 400) Magnesium oxide 211dk=842q g elemental magnesium Dose=____m g magnesium oxide [...] Syringe 25 Route: l (D50W) 06:51: IVP, [place] 00 Dosing Weight 63.636, kg, PRN, PRN [...] potassium No /= 14 Memoria chloride 7-25 Russian, l 06:51: may dissolve each 20 mEq tablet in 4 oz of water. Allow about 2 minutes for the tablets to disintegra te. Stir before giving to prepare slurry and administer . Please exclude patient's with feeding tube less than 14 Russian (Dobhoff, J-tube, etc) and pediatric and patients. [...] oxide -25 (Same as: l 06:51: Mag-Ox [place] 00 400) Magnesium oxide 017ja=781i g elemental magnesium Dose=____m g magnesium oxide [...] day, Stop date: 07/13/22 1:50:00 CDT glucagon 2021- No 1 mg, Memoria 25 Route: IM, [...] potassium No /= 14 Memoria chloride 7-25 Russian, l 06:51: march dissolve each 20 mEq tablet in 4 oz of water. Allow about 2 minutes for the tablets to disintegra te. Stir before giving to prepare slurry and administer . Please exclude patient's with feeding tube less than 14 Russian (Dobhoff, J-tube, etc) and pediatric and patients. [...] 06:51: Mag-Ox Tomas 00 400) Magnesium oxide 148yw=470e g elemental magnesium Dose=____m g magnesium oxide [...] Syringe 06-13 Route: l (D50W) 06:51: IVP, [place] 00 Dosing Weight 63.636, kg, PRN, PRN [...] potassium No /= 14 Memoria chloride 7-25 Russian, l 06:51: march dissolve each 20 mEq tablet in 4 oz of water. Allow about 2 minutes for the tablets to disintegra te. Stir before giving to prepare slurry and administer . Please exclude patient's with feeding tube less than 14 Russian (Dobhoff, J-tube, etc) and pediatric and patients. potassium No Notes: Memori a phosphate-s 06-13 (Same as: l odium 06:51: Phos-NaK) phosphate 00 Each 1.5 250 mg-280 gm pkt has mg-160 mg 250mg oral powder phosphorou for s. Mix reconstitut w/2.5oz ion water and stir. potassium No Notes: Memori a phosphate + 06-13 (Same as: l Sodium 06:51: K Chloride 00 Phosphate. 0.9% IV 250 ) Do not mL infuse phosphorou s concurrent ly in the same line as TPN or IVF that contains calcium. For double lumen central lines, phosphorou s may be infused in a separate lumen from TPN. 1 mMol phoshate has 1.47 mEq potassium Infuse over 4 hours sodium No Notes: Memoria phosphate + 25 Infuse l Dextrose 5% 06:51: over 4 [...] Bin magnesium No Notes: Memori a oxide 25 (Same as: l 06:51: Mag-Ox 400) Magnesium oxide 332hp=117r g elemental magnesium Dose=____m g magnesium oxide (___mg elemental magnesium) calcium No Notes: Memoria gluconate 06-13 WASTE: F/P l 06:51: - Sink; E [place] - [facility] Trash Bin calcium No Notes: Memoria gluconate + 25 WASTE: F/P l Sodium 06:51: - Sink; [...] potassium No /= 14 Memoria chloride 7-25 Russian, l 06:51: may dissolve each 20 mEq tablet in 4 oz of water. Allow about 2 minutes for the tablets to disintegra te. Stir before giving to prepare slurry and administer . Please exclude patient's with feeding tube less than 14 Russian (Dobhoff, J-tube, etc) and pediatric and patients. potassium No Notes: Memori a phosphate-s 06-13 (Same as: l odium 06:51: Phos-NaK) phosphate Each 1.5 250 mg-280 gm pkt has mg-160 mg 250mg oral powder phosphorou for s. Mix reconstitut w/2.5oz ion water and stir. potassium No Notes: Memori a phosphate + 06-13 (Same as: l Sodium 06:51: K [place] Chloride 00 Phosphate. 0.9% IV 250 ) Do not mL infuse phosphorou s concurrent ly in the same line as TPN or IVF that contains calcium. For double lumen central lines, phosphorou s may be infused in a separate lumen from TPN. 1 mMol phoshate has 1.47 mEq potassium Infuse over 4 hours sodium No Notes: Memoria phosphate + - Infuse l Dextrose 5% 06:51: over 4 [...] as: l 06:51: Mag-Ox 400) Magnesium oxide 250hc=202e g elemental magnesium Dose=____m g magnesium oxide (___mg elemental magnesium) calcium No Notes: Memoria gluconate 06-13 WASTE: F/P l 06:51: - Sink; E - [facility] Trash Bin calcium No Notes: Memoria gluconate + 25 WASTE: F/P l Sodium 06:51: - Sink; [...] Crush" potassium No /= 14 Memoria chloride 06-13 Russian, l 06:51: march dissolve each 20 mEq tablet in 4 oz of water. Allow about 2 minutes for the tablets to disintegra te. Stir before giving to prepare slurry and administer . Please exclude patient's with feeding tube less than 14 Russian (Dobhoff, J-tube, etc) and pediatric and patients. potassium No Notes: Memori a phosphate-s 06-13 (Same as: l odium 06:51: Phos-NaK) phosphate Each 1.5 250 mg-280 gm pkt has mg-160 mg 250mg oral powder phosphorou for s. Mix reconstitut w/2.5oz ion water and stir. potassium No Notes: Memori a phosphate + 06-13 (Same as: l Sodium 06:51: K Chloride 00 Phosphate. 0.9% IV 250 ) [...] oxide -25 (Same as: l 06:51: Mag-Ox 400) Magnesium oxide 679is=682s g elemental magnesium Dose=____m g magnesium oxide (___mg elemental magnesium) calcium No Notes: Memoria gluconate 06-13 WASTE: F/P l 06:51: - Sink; E - [facility] Trash Bin calcium No Notes: Memoria gluconate + 25 WASTE: F/P l Sodium 06:51: - Sink; [...] CDT, 0 ondansetron No Notes: Sanya clementine -25 (Same as: l 06:51: Zofran) MEDICATION WASTE Product Size: 4 mg Product Wasted: ___ mg melatonin No Notes: Memori a - (Same as: l 06:51: Melatonin) acetaminoph No Notes: Do M emoria en 06-13 not exceed l 06:51: 4 gm/day. Tomas [...] potassium No /= 14 Memoria chloride -25 Russian, l 06:51: march dissolve each 20 mEq tablet in 4 oz of water. Allow about 2 minutes for the tablets to disintegra te. Stir before giving to prepare slurry and administer . Please exclude patient's with feeding tube less than 14 Russian (Dobhoff, J-tube, etc) and pediatric and patients. [...] hours sodium No Notes: Memoria phosphate + 06-13 Infuse l Dextrose 5% 06:51: over 4 [...] WASTE: F/P l 06:51: - Sink; E [place] 00 - [facility] Trash Bin magnesium No Notes: Memori a oxide 06-13 (Same as: l 06:51: Mag-Ox 400) Magnesium oxide 468rs=012v g elemental magnesium Dose=____m g magnesium oxide [...] CDT, 0 ondansetron No Notes: Sanya clementine -25 (Same as: l 06:51: Zofran) MEDICATION WASTE Product Size: 4 mg Product Wasted: ___ mg melatonin No Notes: Memori a 7-25 (Same as: l 06:51: Melatonin) [place] 00 acetaminoph No Notes: Do M emoria en 06-13 not exceed l 06:51: 4 gm/day. [place] (Same as: Tylenol) dextrometho No Notes: Sanya [...] potassium No /= 14 Memoria chloride 7-25 Russian, l 06:51: may dissolve each 20 mEq tablet in 4 oz of water. Allow about 2 minutes for the tablets to disintegra te. Stir before giving to prepare slurry and administer . Please exclude patient's with feeding tube less than 14 Russian (Dobhoff, J-tube, etc) and pediatric and patients. potassium No Notes: Memori a phosphate-s 06-13 (Same as: l odium 06:51: Phos-NaK) [place] phosphate 00 Each 1.5 250 mg-280 gm [...] as: l 06:51: Mag-Ox 400) Magnesium oxide 731rx=869a g elemental magnesium Dose=____m g magnesium oxide [...] ___ mg melatonin No Notes: Memori a -25 (Same as: l 06:51: Melatonin) acetaminoph No Notes: Do M emoria en 06-13 not exceed l 06:51: 4 gm/day. [place] 00 (Same as: Tylenol) dextrometho No Notes: Sanya clementine rphan-guaiF 06-13 (dextromet l ENesin 10 06:51: horphan-gu He rmann mg-200 mg/5 00 aifenesin mL oral 10-100mg/5 liquid ml 10 ml oral SOLN ud) (Same as: Robitussin DM) hydrALAZINE No Notes: Sanya clementine 06-13 (Same as: l 06:51: Apresoline [place] 00 ) Push over 5 minutes Tessalon No Notes: Memoria Perles 06-13 (Same As: l 06:51: Tessalon Perles) "Do Not Crush" potassium No /= 14 Memoria chloride -25 Russian, l 06:51: may dissolve each 20 mEq tablet in 4 oz of water. Allow about 2 minutes for the tablets to disintegra te. Stir before giving to prepare slurry and administer . Please exclude patient's with feeding tube less than 14 Russian (Dobhoff, J-tube, etc) and pediatric and patients. potassium No Notes: Memori a phosphate-s 06-13 (Same as: l odium 06:51: Phos-NaK) [place] phosphate 00 Each 1.5 250 mg-280 gm pkt has mg-160 mg 250mg oral powder phosphorou for s. Mix reconstitut w/2.5oz ion water and stir. potassium No Notes: Memori a phosphate + 25 (Same as: l Sodium 06:51: K [place] [...] as: l 06:51: Mag-Ox 400) Magnesium oxide 478eh=807c g elemental magnesium Dose=____m g magnesium oxide [...] 06-13 not exceed l 06:51: 4 gm/day. Tomas [...] Perles 7-25 (Same As: l 06:51: Tessalon Perles) "Do Not Crush" potassium No /= 14 Memoria chloride 7-25 Russian, l 06:51: march [place] 00 dissolve each 20 mEq tablet in 4 oz of water. Allow about 2 minutes for the tablets to disintegra te. Stir before giving to prepare slurry and administer . Please exclude patient's with feeding tube less than 14 Russian (Dobhoff, J-tube, etc) and pediatric and patients. potassium No Notes: Memori a phosphate-s -25 (Same as: l odium 06:51: Phos-NaK) [place] phosphate 00 Each 1.5 250 mg-280 gm pkt has mg-160 mg 250mg oral powder phosphorou for s. Mix reconstitut w/2.5oz ion water and stir. potassium No Notes: Memori a phosphate + 7-25 (Same as: l Sodium 06:51: K [place] Chloride 00 Phosphate. 0.9% IV 250 ) [...] as: l 06:51: Mag-Ox 400) Magnesium oxide 334ls=240w g elemental magnesium Dose=____m g magnesium oxide [...] clementine 7-25 (Same as: l 06:51: Apresoline [place] 00 ) Push over 5 minutes Tessalon No Notes: Memoria Perles 7-25 (Same As: l 06:51: Tessalon Tomas 00 Perles) "Do Not Crush" potassium No /= 14 Memoria chloride 7-25 Russian, l 06:51: may [place] 00 dissolve each 20 mEq tablet in 4 oz of water. Allow about 2 minutes for the tablets to disintegra te. Stir before giving to prepare slurry and administer . Please exclude patient's with feeding tube less than 14 Russian (Dobhoff, J-tube, etc) and pediatric and patients. potassium No Notes: Memori a phosphate-s -25 (Same as: l odium 06:51: Phos-NaK) [place] phosphate 00 Each 1.5 250 mg-280 gm pkt has mg-160 mg 250mg oral powder phosphorou for s. Mix reconstitut w/2.5oz ion water and stir. potassium No Notes: Memori a phosphate + 7-25 (Same as: l Sodium 06:51: K [place] Chloride 00 Phosphate. 0.9% IV 250 ) [...] as: l 06:51: Mag-Ox 400) Magnesium oxide 679ep=247f g elemental magnesium Dose=____m g magnesium oxide (___mg elemental magnesium) calcium No Notes: Memoria gluconate 06-13 WASTE: F/P l 06:51: - Sink; E [place] - [facility] Trash Bin calcium No Notes: Memoria gluconate + 06-13 WASTE: F/P l Sodium 06:51: - Sink; E [place] Chloride - 0.9% IV 120 [facility] mL Trash [...] Perles 7-25 (Same As: l 06:51: Tessalon Tomas 00 Perles) "Do Not Crush" potassium No /= 14 Memoria chloride 7-25 Russian, l 06:51: may Tomas dissolve each 20 mEq tablet in 4 oz of water. Allow about 2 minutes for the tablets to disintegra te. Stir before giving to prepare slurry and administer . Please exclude patient's with feeding tube less than 14 Russian (Dobhoff, J-tube, etc) and pediatric and patients. potassium No Notes: Memori a phosphate-s - (Same as: l odium 06:51: Phos-NaK) [place] phosphate 00 Each 1.5 250 mg-280 gm pkt has mg-160 mg 250mg oral powder phosphorou for s. Mix reconstitut w/2.5oz ion water and stir. potassium No Notes: Memori a phosphate + 7-25 (Same as: l Sodium 06:51: K [place] Chloride 00 Phosphate. 0.9% IV 250 ) [...] oxide 06-13 (Same as: l 06:51: Mag-Ox [place] 00 400) Magnesium oxide 835zy=861w g elemental magnesium Dose=____m g magnesium oxide (___mg elemental magnesium) calcium No Notes: Memoria gluconate 06-13 WASTE: F/P l 06:51: - Sink; E [place] 00 - [facility] Trash Bin calcium No Notes: Memoria gluconate + 06-13 WASTE: F/P l Sodium 06:51: - Sink; E Harish n Chloride 00 - 0.9% IV 120 [facility] mL Trash Bin Lasix No Notes: Memoria 06-13 (Same as: l 02:15: Lasix) [place] 00 MEDICATION WASTE Product Size: 40 mg Product Wasted: ___ mg Lasix No Notes: Memoria 06-13 (Same as: l 02:15: Lasix) Tomas 00 MEDICATION WASTE Product Size: 40 mg Product Wasted: ___ mg Lasix No Notes: Memoria 06-13 (Same as: l 02:15: Lasix) [place] 00 MEDICATION WASTE Product Size: 40 mg Product Wasted: ___ mg Lasix 0 No Notes: Memoria 06-13 (Same as: l 02:15: Lasix) [place] 00 MEDICATION WASTE Product Size: 40 mg Product Wasted: ___ mg Lasix 0 No Notes: Memoria 06-13 (Same as: l 02:15: Lasix) [place] 00 MEDICATION WASTE Product Size: 40 mg Product Wasted: ___ mg Lasix 0 No Notes: Memoria 06-13 (Same as: l 02:15: Lasix) [place] 00 MEDICATION WASTE Product Size: 40 mg Product Wasted: ___ mg Lasix 2021-0 No Notes: Memoria 06-13 (Same as: l 02:15: Lasix) [place] 00 MEDICATION WASTE Product Size: 40 mg Product Wasted: ___ mg Lasix 2022-0 No Notes: Memoria 06-13 (Same as: l 02:15: Lasix) [place] 00 MEDICATION WASTE Product Size: 40 mg Product Wasted: ___ mg Lasix 2022-0 No Notes: Memoria 06-13 (Same as: l 02:15: Lasix) [place] 00 MEDICATION WASTE Product Size: 40 mg Product Wasted: ___ mg Lasix 2022-0 No Notes: Memoria 06-13 (Same as: l 02:15: Lasix) [place] 00 MEDICATION WASTE Product Size: 40 mg Product Wasted: ___ mg Lasix 2022-0 No Notes: Memoria 06-13 (Same as: l 02:15: Lasix) [place] 00 MEDICATION WASTE Product Size: 40 mg Product Wasted: ___ mg Lasix 2022-0 No Notes: Memoria 06-13 (Same as: l 02:15: Lasix) [place] 00 MEDICATION WASTE Product Size: 40 mg Product Wasted: ___ mg Lasix 2022-0 No Notes: Memoria 06-13 (Same as: l 02:15: Lasix) [place] 00 MEDICATION WASTE Product Size: 40 mg Product Wasted: ___ mg Lasix 2022-0 No Notes: Memoria 06-13 (Same as: l 02:15: Lasix) [place] 00 MEDICATION WASTE Product Size: 40 mg Product Wasted: ___ mg Lasix 2022-0 No Notes: Memoria 06-13 (Same as: l 02:15: Lasix) [place] 00 MEDICATION WASTE Product Size: 40 mg Product Wasted: ___ mg Lasix 2022-0 No Notes: Memoria 06-13 (Same as: l 02:15: Lasix) [place] 00 MEDICATION WASTE Product Size: 40 mg Product Wasted: ___ mg Lasix 2022-0 No Notes: Memoria 06-13 (Same as: l 02:15: Lasix) [place] 00 MEDICATION WASTE Product Size: 40 mg Product Wasted: ___ mg Lasix 2022-0 No Notes: Memoria 06-13 (Same as: l 02:15: Lasix) [place] 00 MEDICATION WASTE Product Size: 40 mg Product Wasted: ___ mg Lasix 2022-0 No Notes: Memoria 06-13 (Same as: l 02:15: Lasix) [place] 00 MEDICATION WASTE Product Size: 40 mg Product Wasted: ___ mg Lasix 2022-0 No Notes: Memoria 06-13 (Same as: l 02:15: Lasix) [place] 00 MEDICATION WASTE Product Size: 40 mg Product Wasted: ___ mg Lasix 2022-0 No Notes: Memoria 06-13 (Same as: l 02:15: Lasix) [place] 00 MEDICATION WASTE Product Size: 40 mg Product Wasted: ___ mg Lasix 2022-0 No Notes: Memoria 06-13 (Same as: l 02:15: Lasix) [place] 00 MEDICATION WASTE Product Size: 40 mg Product Wasted: ___ mg Lasix 2022-0 No Notes: Memoria 06-13 (Same as: l 02:15: Lasix) [place] 00 MEDICATION WASTE Product Size: 40 mg Product Wasted: ___ mg Lasix 2022-0 No Notes: Memoria 06-13 (Same as: l 02:15: Lasix) [place] 00 MEDICATION WASTE Product Size: 40 mg Product Wasted: ___ mg Lasix 2022-0 No Notes: Memoria 06-13 (Same as: l 02:15: Lasix) [place] 00 MEDICATION WASTE Product Size: 40 mg Product Wasted: ___ mg Lasix 2022-0 No Notes: Memoria 06-13 (Same as: l 02:15: Lasix) [place] 00 MEDICATION WASTE Product Size: 40 mg Product Wasted: ___ mg Lasix 2022-0 No Notes: Memoria 06-13 (Same as: l 02:15: Lasix) [place] 00 MEDICATION WASTE Product Size: 40 mg Product Wasted: ___ mg Lasix 2022-0 No Notes: Memoria 06-13 (Same as: l 02:15: Lasix) [place] 00 MEDICATION WASTE Product Size: 40 mg Product Wasted: ___ mg Lasix 2022-0 No Notes: Memoria 06-13 (Same as: l 02:15: Lasix) [place] 00 MEDICATION WASTE Product Size: 40 mg Product Wasted: ___ mg Lasix 2022-0 No Notes: Memoria 06-13 (Same as: l 02:15: Lasix) [place] 00 MEDICATION WASTE Product Size: 40 mg Product Wasted: ___ mg Lasix 2022-0 No Notes: Memoria 06-13 (Same as: l 02:15: Lasix) [place] 00 MEDICATION WASTE Product Size: 40 mg Product Wasted: ___ mg Lasix 2022-0 No Notes: Memoria 06-13 (Same as: l 02:15: Lasix) [place] 00 MEDICATION WASTE Product Size: 40 mg Product Wasted: ___ mg Lasix 2022-0 No Notes: Memoria 06-13 (Same as: l 02:15: Lasix) [place] 00 MEDICATION WASTE Product Size: 40 mg Product Wasted: ___ mg Lasix 2022-0 No Notes: Memoria 06-13 (Same as: l 02:15: Lasix) [place] 00 MEDICATION WASTE Product Size: 40 mg Product Wasted: ___ mg Lasix 2022-0 No Notes: Memoria 06-13 (Same as: l 02:15: Lasix) [place] 00 MEDICATION WASTE Product Size: 40 mg Product Wasted: ___ mg Lasix 2022-0 No Notes: Memoria 06-13 (Same as: l 02:15: Lasix) [place] 00 MEDICATION WASTE Product Size: 40 mg Product Wasted: ___ mg Lasix 2022-0 No Notes: Memoria 06-13 (Same as: l 02:15: Lasix) [place] 00 MEDICATION WASTE Product Size: 40 mg Product Wasted: ___ mg Lasix 2022-0 No Notes: Memoria 06-13 (Same as: l 02:15: Lasix) [place] 00 MEDICATION WASTE Product Size: 40 mg Product Wasted: ___ mg Lasix 2022-0 No Notes: Memoria 06-13 (Same as: l 02:15: Lasix) [place] 00 MEDICATION WASTE Product Size: 40 mg Product Wasted: ___ mg Lasix 2022-0 No Notes: Memoria 06-13 (Same as: l 02:15: Lasix) [place] 00 MEDICATION WASTE Product Size: 40 mg Product Wasted: ___ mg Lasix 2022-0 No Notes: Memoria 06-13 (Same as: l 02:15: Lasix) [place] 00 MEDICATION WASTE Product Size: 40 mg Product Wasted: ___ mg Lasix 2022-0 No Notes: Memoria 06-13 (Same as: l 02:15: Lasix) [place] 00 MEDICATION WASTE Product Size: 40 mg Product Wasted: ___ mg Lasix 2022-0 No Notes: Memoria 06-13 (Same as: l 02:15: Lasix) [place] 00 MEDICATION WASTE Product Size: 40 mg Product Wasted: ___ mg Lasix 2022-0 No Notes: Memoria 06-13 (Same as: l 02:15: Lasix) [place] 00 MEDICATION WASTE Product Size: 40 mg Product Wasted: ___ mg Lasix 2022-0 No Notes: Memoria 06-13 (Same as: l 02:15: Lasix) [place] 00 MEDICATION WASTE Product Size: 40 mg Product Wasted: ___ mg Lasix 2022-0 No Notes: Memoria 06-13 (Same as: l 02:15: Lasix) [place] 00 MEDICATION WASTE Product Size: 40 mg Product Wasted: ___ mg Lasix 2022-0 No Notes: Memoria 06-13 (Same as: l 02:15: Lasix) [place] 00 MEDICATION WASTE Product Size: 40 mg Product Wasted: ___ mg Lasix 2021-0 No Notes: Memoria - (Same as: l 02:15: Lasix) [place] 00 MEDICATION WASTE Product Size: 40 mg Product Wasted: ___ mg Lasix 2021-0 No Notes: Memoria 7-25 (Same as: l 02:15: Lasix) [place] 00 MEDICATION WASTE Product Size: 40 mg Product Wasted: ___ mg Lasix 2021-0 No Notes: Memoria 7-25 (Same as: l 02:15: Lasix) [place] 00 MEDICATION WASTE Product Size: 40 mg Product Wasted: ___ mg Lasix 2021-0 No Notes: Memoria -25 (Same as: l 02:15: Lasix) [place] 00 MEDICATION WASTE Product Size: 40 mg Product Wasted: ___ mg Lasix 2021-0 No Notes: Memoria - (Same as: l 02:15: Lasix) [place] 00 MEDICATION WASTE Product Size: 40 mg Product Wasted: ___ mg Lasix 2021-0 No Notes: Memoria - (Same as: l 02:15: Lasix) Tomas 00 [...] 7-25 mL, Route: l 01:03: IVP, Drug [place] 00 form: INJ, ONCE, Dosing Weight 63.636, kg, Priority: STAT, Start date: 06/12/22 20:03:00 CDT, Stop date: 06/12/22 20:03:00 CDT, 0 albuterol-i 2021-0 No Notes: Sanya clementine pratropium 7-25 (Same as: l 2.5-0.5 mg 01:03: Duoneb) Herm nupur inhalation 00 solution dexamethaso 2-0 No 10 mg, 2.5 Memoria ne 7-25 mL, Route: l 01:03: IVP, Drug [place] 00 form: INJ, ONCE, Dosing Weight 63.636, kg, Priority: STAT, Start date: 06/12/22 20:03:00 CDT, Stop date: 06/12/22 20:03:00 CDT, 0 albuterol-i 2021-0 No Notes: Sanya clementine pratropium 7-25 (Same as: l 2.5-0.5 mg 01:03: Duoneb) Herm nupur inhalation 00 solution dexamethaso 2021-0 No 10 mg, 2.5 Memoria ne 7-25 mL, Route: l 01:03: IVP, Drug [place] 00 form: INJ, ONCE, Dosing Weight 63.636, kg, Priority: STAT, Start date: 06/12/22 20:03:00 CDT, Stop date: 06/12/22 20:03:00 CDT, 0 albuterol-i 2021-0 No Notes: Sanya clementine pratropium 7-25 (Same as: l 2.5-0.5 mg 01:03: Duoneb) Herm nupur inhalation 00 solution dexamethaso 2021-0 No 10 mg, 2.5 Memoria ne 7-25 [...] Stop date: 06/12/22 20:03:00 CDT, 0 albuterol-i 2022-0 No Notes: Sanya clementine pratropium 7-25 (Same as: l 2.5-0.5 mg 01:03: Duoneb) Herm nupur inhalation 00 solution dexamethaso 2021-0 No 10 mg, 2.5 Memoria ne 7-25 mL, Route: l 01:03: IVP, Drug Blythe 00 form: INJ, ONCE, Dosing Weight 63.636, kg, Priority: STAT, Start date: 06/12/22 20:03:00 CDT, Stop date: 06/12/22 20:03:00 CDT, 0 albuterol-i 202-0 No Notes: Sanya clementine pratropium 7-25 (Same as: l 2.5-0.5 mg 01:03: Duoneb) Herm nupur inhalation 00 solution dexamethaso 2021-0 No 10 mg, 2.5 Memoria ne 7-25 mL, Route: l 01:03: IVP, Drug Blythe 00 form: INJ, ONCE, Dosing Weight 63.636, kg, Priority: STAT, Start date: 06/12/22 20:03:00 CDT, Stop date: 06/12/22 20:03:00 CDT, 0 albuterol-i 202-0 No Notes: Sanya clementine pratropium 7-25 (Same as: l 2.5-0.5 mg 01:03: Duoneb) Herm nupur inhalation 00 solution dexamethaso 2021-0 No 10 mg, 2.5 Memoria ne 7-25 mL, Route: l 01:03: IVP, Drug Blythe 00 form: INJ, ONCE, Dosing Weight 63.636, kg, Priority: STAT, Start date: 06/12/22 20:03:00 CDT, Stop date: 06/12/22 20:03:00 CDT, 0 albuterol-i 2022-0 No Notes: Sanya clementine pratropium 7-25 (Same as: l 2.5-0.5 mg 01:03: Duoneb) Herm nupur inhalation 00 solution dexamethaso 2021-0 No 10 mg, 2.5 Memoria ne 7-25 mL, Route: l 01:03: IVP, Drug Tomas 00 form: INJ, ONCE, Dosing Weight 63.636, kg, Priority: STAT, Start date: 06/12/22 20:03:00 CDT, Stop date: 06/12/22 20:03:00 CDT, 0 albuterol-i 2021-0 No Notes: Sanya clementine pratropium 7-25 (Same as: l 2.5-0.5 mg 01:03: Duoneb) Herm nupur inhalation 00 solution dexamethaso 2021-0 No 10 mg, 2.5 Memoria ne 7-25 mL, Route: l 01:03: IVP, Drug Blythe form: INJ, ONCE, Dosing Weight 63.636, kg, Priority: STAT, Start date: 06/12/22 20:03:00 CDT, Stop date: 06/12/22 20:03:00 CDT, 0 albuterol-i 2021-0 No Notes: Sanya clementine pratropium 7-25 (Same as: l 2.5-0.5 mg 01:03: Duoneb) Herm nupur inhalation 00 solution dexamethaso 2021-0 No 10 mg, 2.5 Memoria ne 7-25 mL, Route: l 01:03: IVP, Drug Tomas form: INJ, ONCE, Dosing Weight 63.636, kg, Priority: STAT, Start date: 06/12/22 20:03:00 CDT, Stop date: 06/12/22 20:03:00 CDT, 0 albuterol-i 2021-0 No Notes: Sanya clementine pratropium 7-25 (Same as: l 2.5-0.5 mg 01:03: Duoneb) Herm nupur inhalation 00 solution dexamethaso 2021-0 No 10 mg, 2.5 Memoria ne 7-25 mL, Route: l 01:03: IVP, Drug Blythe 00 form: INJ, ONCE, Dosing Weight 63.636, kg, Priority: STAT, Start date: 06/12/22 20:03:00 CDT, Stop date: 06/12/22 20:03:00 CDT, 0 albuterol-i 2021-0 No Notes: Sanya clementine pratropium 7-25 (Same as: l 2.5-0.5 mg 01:03: Duoneb) Herm nupur inhalation 00 solution dexamethaso 2021-0 No 10 mg, 2.5 Memoria ne 7-25 mL, Route: l 01:03: IVP, Drug Blythe 00 form: INJ, ONCE, Dosing Weight 63.636, kg, Priority: STAT, Start date: 06/12/22 20:03:00 CDT, Stop date: 06/12/22 20:03:00 CDT, 0 albuterol-i 2021-0 No Notes: Sanya clementine pratropium 7-25 (Same as: l 2.5-0.5 mg 01:03: Duoneb) Herm nupur inhalation 00 solution dexamethaso 2021-0 No 10 mg, 2.5 Memoria ne 7-25 mL, Route: l 01:03: IVP, Drug Tomas 00 form: INJ, ONCE, Dosing Weight 63.636, kg, Priority: STAT, Start date: 06/12/22 20:03:00 CDT, Stop date: 06/12/22 20:03:00 CDT, 0 albuterol-i 2021-0 No Notes: Sanya clementine pratropium 7-25 (Same as: l 2.5-0.5 mg 01:03: Duoneb) Herm nupur inhalation 00 solution dexamethaso 2021-0 No 10 mg, 2.5 Memoria ne 7-25 mL, Route: l 01:03: IVP, Drug Blythe 00 form: INJ, ONCE, Dosing Weight 63.636, kg, Priority: STAT, Start date: 06/12/22 20:03:00 CDT, Stop date: 06/12/22 20:03:00 CDT, 0 albuterol-i 2021-0 No Notes: Sanya clementine pratropium 7-25 (Same as: l 2.5-0.5 mg 01:03: Duoneb) Herm nupur inhalation 00 solution dexamethaso 2022-0 No 10 mg, 2.5 Memoria ne 7-25 mL, Route: l 01:03: IVP, Drug Blythe 00 form: INJ, ONCE, Dosing Weight 63.636, kg, Priority: STAT, Start date: 06/12/22 20:03:00 CDT, Stop date: 06/12/22 20:03:00 CDT, 0 albuterol-i 2021-0 No Notes: Sanya clementine pratropium 7-25 (Same as: l 2.5-0.5 mg 01:03: Duoneb) Herm nupur inhalation 00 solution dexamethaso 2021-0 No 10 mg, 2.5 Memoria ne 7-25 mL, Route: l 01:03: IVP, Drug Blythe form: INJ, ONCE, Dosing Weight 63.636, kg, Priority: STAT, Start date: 06/12/22 20:03:00 CDT, Stop date: 06/12/22 20:03:00 CDT, 0 albuterol-i 2021-0 No Notes: Sanya clementine pratropium 7-25 (Same as: l 2.5-0.5 mg 01:03: Duoneb) Herm nupur inhalation 00 solution dexamethaso 2021-0 No 10 mg, 2.5 Memoria ne 7-25 [...] Stop date: 06/12/22 20:03:00 CDT, 0 albuterol-i 2022-0 No Notes: Sanya clementine pratropium 7-25 (Same as: l 2.5-0.5 mg 01:03: Duoneb) Herm nupur inhalation 00 solution dexamethaso 2-0 No 10 mg, 2.5 Memoria ne 7-25 mL, Route: l 01:03: IVP, Drug Blythe 00 form: INJ, ONCE, Dosing Weight 63.636, kg, Priority: STAT, Start date: 06/12/22 20:03:00 CDT, Stop date: 06/12/22 20:03:00 CDT, 0 albuterol-i 2021-0 No Notes: Sanya clementine pratropium 7-25 (Same as: l 2.5-0.5 mg :03: Duoneb) Herm nupur inhalation 00 solution dexamethaso 2-0 No 10 mg, 2.5 Memoria ne 7-25 mL, Route: l 01:03: IVP, Drug Blythe 00 form: INJ, ONCE, Dosing Weight 63.636, kg, Priority: STAT, Start date: 06/12/22 20:03:00 CDT, Stop date: 06/12/22 20:03:00 CDT, 0 albuterol-i 2021-0 No Notes: Sanya clementine pratropium 7-25 (Same as: l 2.5-0.5 mg :03: Duoneb) Herm nupur inhalation 00 solution dexamethaso 2-0 No 10 mg, 2.5 Memoria ne 7-25 mL, Route: l 01:03: IVP, Drug Blythe 00 form: INJ, ONCE, Dosing Weight 63.636, kg, Priority: STAT, Start date: 06/12/22 20:03:00 CDT, Stop date: 06/12/22 20:03:00 CDT, 0 albuterol-i 2-0 No Notes: Sanya clementine pratropium 7-25 (Same as: l 2.5-0.5 mg 01:03: Duoneb) Herm nupur inhalation 00 solution dexamethaso 2022-0 No 10 mg, 2.5 Memoria ne 7-25 mL, Route: l 01:03: IVP, Drug Blythe 00 form: INJ, ONCE, Dosing Weight 63.636, kg, Priority: STAT, Start date: 06/12/22 20:03:00 CDT, Stop date: 06/12/22 20:03:00 CDT, 0 albuterol-i 2021-0 No Notes: Sanya clementine pratropium 7-25 (Same as: l 2.5-0.5 mg 01:03: Duoneb) Herm nupur inhalation 00 solution dexamethaso 2021-0 No 10 mg, 2.5 Memoria ne 7-25 mL, Route: l 01:03: IVP, Drug Blythe 00 form: INJ, ONCE, Dosing Weight 63.636, kg, Priority: STAT, Start date: 06/12/22 20:03:00 CDT, Stop date: 06/12/22 20:03:00 CDT, 0 albuterol-i 2021-0 No Notes: Snaya clementine pratropium 7-25 (Same as: l 2.5-0.5 mg 01:03: Duoneb) Herm nupur inhalation 00 solution dexamethaso 2021-0 No 10 mg, 2.5 Memoria ne 7-25 mL, Route: l 01:03: IVP, Drug Blythe form: INJ, ONCE, Dosing Weight 63.636, kg, Priority: STAT, Start date: 06/12/22 20:03:00 CDT, Stop date: 06/12/22 20:03:00 CDT, 0 albuterol-i 2021-0 No Notes: Sanya clementine pratropium 7-25 (Same as: l 2.5-0.5 mg 01:03: Duoneb) Herm nupur inhalation 00 solution dexamethaso 2021-0 No 10 mg, 2.5 Memoria ne 7-25 [...] 7-25 mL, Route: l 01:03: IVP, Drug Blythe 00 form: INJ, ONCE, Dosing Weight 63.636, kg, Priority: STAT, Start date: 06/12/22 20:03:00 CDT, Stop date: 06/12/22 20:03:00 CDT, 0 albuterol-i 2-0 No Notes: Sanya clementine pratropium 7-25 (Same as: l 2.5-0.5 mg :03: Duoneb) Herm nupur inhalation 00 solution dexamethaso 2022-0 No 10 mg, 2.5 Memoria ne 7-25 mL, Route: l 01:03: IVP, Drug Blythe 00 form: INJ, ONCE, Dosing Weight 63.636, kg, Priority: STAT, Start date: 06/12/22 20:03:00 CDT, Stop date: 06/12/22 20:03:00 CDT, 0 albuterol-i 2022-0 No Notes: Sanya clementine pratropium 7-25 (Same [...] 7-25 mL, Route: l 01:03: IVP, Drug Blythe 00 form: INJ, ONCE, Dosing Weight 63.636, kg, Priority: STAT, Start date: 06/12/22 20:03:00 CDT, Stop date: 06/12/22 20:03:00 CDT, 0 albuterol-i 2-0 No Notes: Sanya clementine pratropium 7-25 (Same as: l 2.5-0.5 mg 01:03: Duoneb) Herm nupur inhalation 00 solution dexamethaso 2-0 No 10 mg, 2.5 Memoria ne 7-25 mL, Route: l 01:03: IVP, Drug Blythe 00 form: INJ, ONCE, Dosing Weight 63.636, [...] Stop date: 06/12/22 20:03:00 CDT, 0 albuterol-i 2022-0 No Notes: Sanya clementine pratropium 7-25 (Same as: l 2.5-0.5 mg 01:03: Duoneb) Herm nupur inhalation 00 solution dexamethaso 2021-0 No 10 mg, 2.5 Memoria ne 7-25 mL, Route: l 01:03: IVP, Drug B[place]the 00 form: INJ, ONCE, Dosing Weight 63.636, kg, Priority: STAT, Start date: 06/12/22 20:03:00 CDT, Stop date: 06/12/22 20:03:00 CDT, 0 albuterol-i 2021-0 No Notes: Sanya clementine pratropium 7-25 (Same as: l 2.5-0.5 mg 01:03: Duoneb) Herm nupur inhalation 00 solution dexamethaso 2021-0 No 10 mg, 2.5 Memoria ne 7-25 mL, Route: l 01:03: IVP, Drug Blythe 00 form: INJ, ONCE, Dosing Weight 63.636, kg, Priority: STAT, Start date: 06/12/22 20:03:00 CDT, Stop date: 06/12/22 20:03:00 CDT, 0 albuterol-i 2021-0 No Notes: Sanya clementine pratropium 7-25 (Same as: l 2.5-0.5 mg 01:03: Duoneb) Herm nupur inhalation 00 solution dexamethaso 2021-0 No 10 mg, 2.5 Memoria ne 7-25 [...] 7-25 mL, Route: l 01:03: IVP, Drug B[place]the 00 form: INJ, ONCE, Dosing Weight 63.636, kg, Priority: STAT, Start date: 06/12/22 20:03:00 CDT, Stop date: 06/12/22 20:03:00 CDT, 0 albuterol-i 2022-0 No Notes: Sanya clementine pratropium 7-25 (Same as: l 2.5-0.5 mg 01:03: Duoneb) Herm nupur inhalation 00 solution dexamethaso 2-0 No 10 mg, 2.5 Memoria ne 7-25 mL, Route: l 01:03: IVP, Drug Tomas 00 form: INJ, ONCE, Dosing Weight 63.636, kg, Priority: STAT, Start date: 06/12/22 20:03:00 CDT, Stop date: 06/12/22 20:03:00 CDT, 0 albuterol-i 2022-0 No Notes: Sanya clementine pratropium 7-25 (Same as: l 2.5-0.5 mg 01:03: Duoneb) Herm nupur inhalation 00 solution dexamethaso 2-0 No 10 mg, 2.5 Memoria ne 7-25 mL, Route: l 01:03: IVP, Drug B[place]the 00 form: INJ, ONCE, Dosing Weight 63.636, kg, Priority: STAT, Start date: 06/12/22 20:03:00 CDT, Stop date: 06/12/22 20:03:00 CDT, 0 albuterol-i 2022-0 No Notes: Sanya clementine pratropium 7-25 (Same [...] Duoneb) Herm nupur inhalation 00 solution dexamethaso 2021-0 No 10 mg, 2.5 Memoria ne 7-25 mL, Route: l 01:03: IVP, Drug B[place]the 00 form: INJ, ONCE, Dosing Weight 63.636, kg, Priority: STAT, Start date: 06/12/22 20:03:00 CDT, Stop date: 06/12/22 20:03:00 CDT, 0 albuterol-i 2021-0 No Notes: Sanya clementine pratropium 7-25 (Same as: l 2.5-0.5 mg 01:03: Duoneb) Herm nupur inhalation 00 solution dexamethaso 2021-0 No 10 mg, 2.5 Memoria ne 7-25 mL, Route: l 01:03: IVP, Drug B[place]the 00 form: INJ, ONCE, Dosing Weight 63.636, kg, Priority: STAT, Start date: 06/12/22 20:03:00 CDT, Stop date: 06/12/22 20:03:00 CDT, 0 albuterol-i 2021-0 No Notes: Sanya clementine pratropium 7-25 (Same as: l 2.5-0.5 mg 01:03: Duoneb) Herm nupur inhalation 00 solution dexamethaso 2-0 No 10 mg, 2.5 Memoria ne 7-25 mL, Route: l 01:03: IVP, Drug B[place] 00 form: INJ, ONCE, Dosing Weight 63.636, kg, Priority: STAT, Start date: 06/12/22 20:03:00 CDT, Stop date: 06/12/22 20:03:00 CDT, 0 albuterol-i 2022-0 No Notes: Sanya clementine pratropium 7-25 (Same as: l 2.5-0.5 mg 01:03: Duoneb) Herm nupur inhalation 00 solution dexamethaso 2-0 No 10 mg, 2.5 Memoria ne 7-25 mL, Route: l 01:03: IVP, Drug Tomas 00 form: INJ, ONCE, Dosing Weight 63.636, kg, Priority: STAT, Start date: 06/12/22 20:03:00 CDT, Stop date: 06/12/22 20:03:00 CDT, 0 albuterol-i 2022-0 No Notes: Sanya clementine pratropium 7-25 (Same as: l 2.5-0.5 mg 01:03: Duoneb) Herm nupur inhalation 00 solution dexamethaso 2-0 No 10 mg, 2.5 Memoria ne 7-25 mL, Route: l 01:03: IVP, Drug B[place]the 00 form: INJ, ONCE, Dosing Weight 63.636, kg, Priority: STAT, Start date: 06/12/22 20:03:00 CDT, Stop date: 06/12/22 20:03:00 CDT, 0 albuterol-i 2022-0 No Notes: Sanya clementine pratropium 7-25 (Same as: l 2.5-0.5 mg 01:03: Duoneb) Herm nupur inhalation 00 solution dexamethaso 2022-0 No 10 mg, 2.5 Memoria ne 7-25 mL, Route: l 01:03: IVP, Drug B[place]the 00 form: INJ, ONCE, Dosing Weight 63.636, kg, Priority: STAT, Start date: 06/12/22 20:03:00 CDT, Stop date: 06/12/22 20:03:00 CDT, 0 albuterol-i 2022-0 No Notes: Sanya clementine pratropium 7-25 (Same [...] Duoneb) Herm nupur inhalation 00 solution dexamethaso 2021-0 No 10 mg, 2.5 Memoria ne 7-25 mL, Route: l 01:03: IVP, Drug B[place] 00 form: INJ, ONCE, Dosing Weight 63.636, kg, Priority: STAT, Start date: 06/12/22 20:03:00 CDT, Stop date: 06/12/22 20:03:00 CDT, 0 albuterol-i 2021-0 No Notes: Sanya clementine pratropium 7-25 (Same as: l 2.5-0.5 mg 01:03: Duoneb) Herm nupur inhalation 00 solution dexamethaso 2021-0 No 10 mg, 2.5 Memoria ne 7-25 [...] 00:00: - [facility] 00 [facility] Tramadol Tramadol No 1{table Tramadol HCl [...] route. omeprazole omeprazole No 1 Q1D omeprazole [place] [...] not Common thiazide thiazide Ring defined [facility] Anastrozole Anastrozole Yes Jose Alberto not Common Ring defined [facility] Omeprazole Omeprazole Yes Jose Alberto not Common Ring defined [facility] Losartan Losartan Yes Jose Alberto not Comm on Potassium Potassium [facility] Losartan No Losartan Potassium Potassium Potassium [...] Date Status Commen ts Source Name Name Influenza 2022-06-20 Completed [facility] Col[facility] ge 00:00:00 of Medicine Influenza 2022-06-20 Completed [facility] ge 00:00:00 of Medicine Influenza 2022-06-20 Completed [facility] Colle ge 00:00:00 of Medicine Hyalgan 20 mg Hyalgan 20 mg 2020-10-06 Completed [facility] 11:17[facility]00 [facility] Hyalgan 20 mg Hyalgan 20 mg 2020-09-29 Completed [facility] - 11:59:00 [facility] Hyalgan 20 mg Hyalgan 20 mg 2020-09-29 Completed [facility] - 11:59:00 [facility] Hyalgan 20 mg Hyalgan 20 mg 2020-09-22 Completed [facility] - 09:44:00 [facility] Hyalgan 20 mg Hyalgan 20 mg 2020-09-22 Completed [facility] - 09:44:00 [facility] Hyalgan 20 mg Hyalgan 20 mg 2020-09-22 Completed [facility] - 09:44:00 [facility] Bupivicaine [place] Bupivicaine [place] 2020-05-19 [facility]00 [facility] Bupivicaine [place] Bupivicaine [place] 2020-05-19 [facility]pleted [facility] 09:05:00 [facility] Bupivicaine [place] Bupivicaine [place] 2020-05-19 Completed [facility] - 09:05:00 [facility] Bupivicaine [place] Bupivicaine [place] 2020-05-19 [facility]pleted [facility] 09:05:00 [facility] Brayan Schmidt 2020-05-19 Completed [facility] - (Triamcinolone) (Triamcinolone) 09:04:00 [facility] Brayan Schmidt 2020-05-19 Completed [facility] - (Triamcinolone) (Triamcinolone) 09:04:00 [facility] Brayan Schmidt 2020-05-19 Completed [facility] (Triamcinolone) (Triamcinolone) 09:04:00 [facility] Brayan Schmidt 2020-05-19 Completed [facility] (Triamcinolone) (Triamcinolone) 09:04:00 [facility] Brayan Schmidt 2020-02-24 Completed [facility] (Triamcinolone) (Triamcinolone) 15:16:00 [facility] Brayan Schmidt 2020-02-24 Completed [facility] (Triamcinolone) (Triamcinolone) 15:16:00 [facility] Brayan Schmidt 2020-02-24 Completed [facility] (Triamcinolone) (Triamcinolone) 15:16:00 [facility] Brayan Schmidt 2020-02-24 Completed [facility] (Triamcinolone) (Triamcinolone) 15:16:00 [facility] Bupivicaine [place] Bupivicaine [place] 2020-02-24 Completed [facility] 15:15:00 [facility] Bupivicaine [place] Bupivicaine [place] 2020-02-24 Completed [facility] - 15:15:00 [facility] Bupivicaine [place] Bupivicaine [place] 2020-02-24 Completed [facility] - 15:15:00 [facility] Bupivicaine [place] Bupivicaine [place] 2020-02-24 Completed [facility] - 15:15:00 [facility] Depo Medrol (40mg) Depo Medrol (40mg) 2019-06-06 Completed [facility] - 09:38:00 [facility] Bupivicaine [place] Bupivicaine [place] 2019-06-06 Completed [facility] 09:38:00 [facility] Depo Medrol (40mg) Depo Medrol (40mg) 2019-06-06 Completed [facility] - 09:38:00 [facility] Bupivicaine [place] Bupivicaine [place] 2019-06-06 Completed [facility] 09:38:00 [facility] Depo Medrol (40mg) Depo Medrol (40mg) 2019-06-06 Completed [facility] - 09:38:00 [facility] Bupivicaine [place] Bupivicaine [place] 2019-06-06 Completed [facility] - 09:38:00 [facility] Depo Medrol (40mg) Depo Medrol (40mg) 2019-06-06 Completed [facility] - 09:38:00 [facility] Bupivicaine [place] Bupivicaine [place] 2019-06-06 Completed [facility] - 09:38:00 [facility] Vital Signs Vital Name Observation Time Observation Value Comments Source Systolic blood 2022-11-15 16:26:00 117 mm[Hg] [facility] Diastolic blood 2022-11-15 16:26:00 57 mm[Hg] [facility] Medicine Heart rate 2022-11-15 16:26:00 85 /min [facility] Body temperature 2022-11-15 16:26:00 36.61 [facility] Body height 2022-11-15 16:26:00 165.1 cm [facility] Body weight 2022-11-15 16:26:00 61.598 kg [facility] BMI 2022-11-15 16:26:00 22.60 kg/m2 [facility] HEIGHT 2022-11-02 09:00:00 167.6 cm WEIGHT 2022-11-02 09:00:00 73.029 kg HEIGHT 2022-11-02 09:00:00 167.6 cm WEIGHT 2022-11-02 09:00:00 73.029 kg HEIGHT 2022-11-02 09:00:00 167.6 cm WEIGHT 2022-11-02 09:00:00 73.029 kg Systolic blood 2022-10-25 15:05:00 101 mm[Hg] [facility] pressure Medicine Diastolic blood 2022-10-25 15:05:00 59 mm[Hg] [facility] Heart rate 2022-10-25 15:05:00 102 /min [facility] Body temperature 2022-10-25 15:05:00 36.78 [facility] Body height 2022-10-25 15:05:00 165.1 cm [facility] Body weight 2022-10-25 15:05:00 60.963 kg [facility] BMI 2022-10-25 15:05:00 22.37 kg/m2 [facility] Systolic blood 2022-10-18 20:42:00 144 mm[Hg] [facility] Medicine Diastolic blood 2022-10-18 20:42:00 77 mm[Hg] [facility] Medicine Heart rate 2022-10-18 20:42:00 74 /min [facility] Body temperature 2022-10-18 20:42:00 36.67 [facility] Respiratory rate 2022-10-18 20:42:00 16 /min [facility] Body height 2022-10-18 20:42:00 165.1 cm [facility] Body weight 2022-10-18 20:42:00 60.328 kg [facility] BMI 2022-10-18 20:42:00 22.13 kg/m2 [facility] Systolic blood 2022-10-18 13:56:00 144 mm[Hg] [facility] Medicine Diastolic blood 2022-10-18 13:56:00 77 mm[Hg] [facility] Medicine Heart rate 2022-10-18 13:55:00 74 /min [facility] Respiratory rate 2022-10-18 13:55:00 16 /min [facility] Body height 2022-10-18 13:55:00 165.1 cm [facility] Body weight 2022-10-18 13:55:00 60.328 kg [facility] BMI 2022-10-18 13:55:00 22.13 kg/m2 [facility] Oxygen saturation in 2022-10-18 13:55:00 94 /min [facility] blood by Medicine Pulse oximetry WEIGHT 2022-10-10 05:00:00 63.231 kg WEIGHT 2022-10-07 21:32:00 65.227 kg HEIGHT 2022-10-07 21:32:00 167.6 cm WEIGHT 2022-10-10 05:00:00 63.231 kg WEIGHT 2022-10-07 21:32:00 65.227 kg HEIGHT 2022-10-07 21:32:00 167.6 cm WEIGHT 2022-10-10 05:00:00 63.231 kg WEIGHT 2022-10-07 21:32:00 65.227 kg HEIGHT 2022-10-07 21:32:00 167.6 cm WEIGHT 2022-09-28 08:42:00 66.282 kg WEIGHT 2022-09-27 [...] kg Systolic blood 2022-08-30 13:41:00 119 mm[Hg] [facility] pressure Medicine Diastolic blood 2022-08-30 13:41:00 56 mm[Hg] [facility] pressure Medicine Heart rate 2022-08-30 13:38:00 109 /min [facility] Respiratory rate 2022-08-30 13:38:00 16 /min [facility] Body height 2022-08-30 13:38:00 165.1 cm [facility] Body weight 2022-08-30 13:38:00 71.668 kg pt states [facility] BMI 2022-08-30 13:38:00 26[facility]29 [facility] Oxygen saturation in 2022-08-30 13:38:00 98 /min [facility] Arterial blood by [facility] Pulse oximetry Systolic blood 2022-08-24 13:00:00 99 mm[Hg] [facility] pressure Medicine Diastolic blood 2022-08-24 13:00:00 55 mm[Hg] [facility] Medicine Heart rate 2022-08-24 13:00:00 91 /min [facility] Body temperature 2022-08-24 12:30:00 36.67 [facility] Body height 2022-08-24 12:30:00 160 cm [facility] Body weight 2022-08-24 12:30:00 71.215 kg [facility] BMI 2022-08-24 12:30:00 27.81 kg/m2 [facility] HEIGHT 2022-08-18 10:40:00 160 cm WEIGHT 2022-08-18 10:40:00 68.04 kg HEIGHT 2022-08-18 10:40:00 160 cm WEIGHT 2022-08-18 10:40:00 68.04 kg HEIGHT 2022-08-18 10:40:00 160 cm WEIGHT 2022-08-18 10:40:00 68.04 kg height 2020-10-06 15:15:00 61.5 [in_i] [facility] weight 2020-10-06 15:15:00 157 [lb_av] [facility] temperature 2020-10-06 15:15:00 97.1 [degF] [facility] bmi 2020-10-06 15:15:00 29.18 kg/m2 [facility] blood pressure 2020-10-06 15:15:00 142 mm[Hg] [facility] - systolic [facility] blood pressure 2020-10-06 15:15:00 84 mm[Hg] [facility] - diastolic [facility] height 2020-09-29 11:15:00 61.5 [in_i] [facility] weight 2020-09-29 11:15:00 157 [lb_av] [facility] temperature 2020-09-29 11:15:00 97.3 [degF] [facility] bmi 2020-09-29 11:15:00 29.18 kg/m2 [facility] blood pressure 2020-09-29 11:15:00 144 mm[Hg] [facility] blood pressure 2020-09-29 11:15:00 84 mm[Hg] [facility] height 2020-09-22 09:30:00 61.5 [in_i] [facility] weight 2020-09-22 09:30:00 157 [lb_av] [facility] temperature 2020-09-22 09:30:00 97.1 [degF] [facility] bmi 2020-09-22 09:30:00 29.18 kg/m2 [facility] blood pressure 2020-09-22 09:30:00 160 mm[Hg] [facility] blood pressure 2020-09-22 09:30:00 84 mm[Hg] [facility] height 2020-09-10 09:30:00 61.5 [in_i] [facility] weight 2020-09-10 09:30:00 157 [lb_av] [facility] bmi 2020-09-10 09:30:00 29.18 kg/m2 [facility] blood pressure 2020-09-10 09:30:00 134 mm[Hg] [facility] blood pressure 2020-09-10 09:30:00 72 mm[Hg] [facility] Systolic blood 2022-11-02 12:36:00 121 mm[Hg] [facility] Diastolic blood 2022-11-02 12:36:00 50 mm[Hg] [facility] Heart rate 2022-11-02 12:36:00 75 /min [facility] Body temperature 2022-11-02 12:36:00 36.56 Lovely [facility] Respiratory rate 2022-11-02 12:36:00 19 /min [facility] Oxygen saturation in 2022-11-02 12:36:00 96 /min [facility] Arterial blood by [facility] Pulse oximetry Body height 2022-11-02 09:00:00 167.6 cm [facility] Body weight 2022-11-02 09:00:00 73.029 kg [facility] BMI 2022-11-02 09:00:00 26.00 kg/m2 [facility] Systolic blood 2022-10-10 15:00:00 108 mm[Hg] [facility] Diastolic blood 2022-10-10 15:00:00 60 mm[Hg] [facility] Heart rate 2022-10-10 15:00:00 85 /min [facility] Body temperature 2022-10-10 15:00:00 36.5 Lovely [facility] Respiratory rate 2022-10-10 15:00:00 19 /min [facility] Oxygen saturation in 2022-10-10 15:00:00 99 /min [facility] Arterial blood by Medical Ce nter Pulse oximetry Body weight 2022-10-10 05:00:00 63.231 kg [facility] BMI 2022-10-10 05:00:00 22.51 kg/m2 [facility] Body height 2022-10-07 21:32:00 167.6 cm [facility] Systolic blood 2022-09-28 15:25:00 100 mm[Hg] [facility] Diastolic blood 2022-09-28 15:25:00 59 mm[Hg] [facility] Heart rate 2022-09-28 15:25:00 96 /min [facility] Body temperature 2022-09-28 15:25:00 35.61 Lovely [facility] Respiratory rate 2022-09-28 15:25:00 18 /min [facility] Oxygen saturation in 2022-09-28 15:25:00 97 /min [facility] Arterial blood by Medical Ce nter Pulse oximetry Body weight 2022-09-28 08:42:00 66.282 kg [facility] BMI 2022-09-28 08:42:00 23.60 kg/m2 [facility] Body height 2022-09-22 09:00:00 167.6 cm [facility] Systolic blood 2022-08-18 12:18:00 116 mm[Hg] [facility] Diastolic blood 2022-08-18 12:18:00 53 mm[Hg] [facility] Heart rate 2022-08-18 12:18:00 91 /min [facility] Respiratory rate 2022-08-18 12:18:00 18 /min [facility] Oxygen saturation in 2022-08-18 12:18:00 100 /min [facility] Arterial blood by Medical Ce nter Pulse oximetry Body temperature 2022-08-18 10:40:00 36.72 Lovely [facility] Body height 2022-08-18 10:40:00 160 cm [facility] Body weight 2022-08-18 10:40:00 68.04 kg [facility] BMI 2022-08-18 10:40:00 26.57 kg/m2 [facility] Heart Rate 2022-06-17 16:38:41 [facility] Systolic (mm Hg) 2022-06-17 16:38:36 Sanya [facility] Diastolic (mm Hg) 2022-06-17 16:38:36 [facility] Heart Rate 2022-06-17 16:38:36 [facility] Heart Rate 2022-06-17 13:21:37 [facility] Systolic (mm Hg) 2022-06-17 13:21:31 Sanya [facility] Diastolic (mm Hg) 2022-06-17 13:21:31 [facility] Temperature Oral (F) 2022-06-17 13:19:30 98.3 F [facility] Respitory Rate 2022-06-17 12:55:00 [facility] Temperature Oral (F) 2022-06-17 09:42:49 97.5 F [facility] Systolic (mm Hg) 2022-06-17 09:42:39 Sanya [facility] Diastolic (mm Hg) 2022-06-17 09:42:39 [facility] Temperature Oral (F) 2022-06-17 05:57:22 97.5 F [facility] Respitory Rate 2022-06-17 01:23:00 [facility] Respitory Rate 2022-06-16 12:48:00 [facility] Height 2022-06-13 19:35:00 162.56 cm [facility] Weight 2022-06-13 19:35:00 [facility] BMI Calculated 2022-06-13 19:35:00 [facility] Respitory Rate 2022-06-13 11:35:00 [facility] Respitory Rate 2022-06-13 11:00:00 [facility] Systolic (mm Hg) 2022-06-13 11:00:00 Sanya [facility] Diastolic (mm Hg) 2022-06-13 11:00:00 Mem [facility] Respitory Rate 2022-06-13 10:00:00 [facility] Systolic (mm Hg) 2022-06-13 10:00:00 Sanya alcantara [facility] Diastolic (mm Hg) 2022-06-13 10:00:00 Mem [facility] Systolic (mm Hg) 2022-06-13 09:14:00 Sanya [facility] Diastolic (mm Hg) 2022-06-13 09:14:00 [facility] Temperature Oral (F) 2022-06-13 01:05:00 98.1 F [facility] Height 2022-06-13 00:20:00 [facility] Calculated 2022-06-13 00:20:00 Adrianna benitez [facility] Weight 2022-06-13 00:20:00 [facility] Heart Rate 2022-06-13 00:20:00 [facility] Temperature Oral (F) 2022-06-13 00:20:00 98 F [facility] Procedures Procedure Date / Time Performing Clinician Source Performed CT ABDOMEN/PELVIS WITH IV 2022-11-22 [facility] CT CHEST WITH IV CONTRAST 2022-11-22 10:[facility] 2022-11-22 10:04:[address] [facility] CREATININE,RANDOM URINE 2022-11-15 11:33:26 [facility] SODIUM, RANDOM URINE 2022-11-15 11:33:26 [facility] CULTURE, URINE/SENSITIVITY 2022-11-15 10:47:49 B [facility] ALL Medicine CANCER ANTIGEN 125 2022-11-15 10:03:00 [facility] MAGNESIUM 2022-11-15 10:03:00 [facility] COMPREHENSIVE METABOLIC 2022-11-15 10:03:00 [facility] Medicine CBC W/AUTO DIFF WITH 2022-11-15 10:03:[address] [facility] CBC W ABSOLUTE NEUTROPHIL 2022-11-15 06:21:46 Ba [facility] XR CHEST 1 VIEW PORTABLE / 2022-11-02 10:57:00 Jordan Moore [facility] INSERTION, CATHETER, 2022-11-02 10:00:00 [facility] WITH US GUIDANCE [facility] INSERTION, CATHETER, 2022-11-02 09:10:00 [facility] PLEURAL, WITH US GUIDANCE [facility] CANCER ANTIGEN 125 2022-10-25 09:30:00 [facility] MAGNESIUM 2022-10-25 09:30:00 [facility] COMPREHENSIVE METABOLIC 2022-10-25 09:30:00 [facility] PANEL Medicine CBC W/AUTO DIFF WITH 2022-10-25 09:30:00 [facility] PLATELETS Medicine CBC W ABSOLUTE NEUTROPHIL 2022-10-25 06:12:22 [facility] COUNT Medicine PREPARE RBC 2022-10-10 23:54:[address] [facility] IRON, TIBC, % SAT. (WITHOUT 2022-10-10 03:38[facility] FERRITIN 2022-10-10 03:38[facility] COUNT & AUTO 2022-10-10 03:38:00 Joy [facility] DIFFERENTIAL [facility] COMPREHENSIVE METABOLIC 2022-10-10 03:38:00 [facility] PANEL [facility] MAGNESIUM 2022-10-10 03:38:00 [facility] CBC W/PLT COUNT & AUTO 2022-10-10 03:38:00 [facility] LEUKO-REDUCED RED 2022-10-09 12:43:00 Benita [facility] BLOOD CELLS [facility] ECG 12-LEAD 2022-10-09 10:31:18 Unknown, Hl7 [facility] ECG 12-LEAD 2022-10-09 10:31:18 Simon Estrada [facility] ECG 12-LEAD 2022-10-09 10:31:18 Unknown, Hl7 [facility] HIGH SENSITIVITY TROPONIN I 2022-10-09 10:19:00 Medhekar, Simon [facility] TYPE AND SCREEN, AUTOMATED 2022-10-09 09:55:00 Minal Joy [facility] CBC W/PLT COUNT & AUTO 2022-10-09 06:05:[address] [facility] COMPREHENSIVE METABOLIC 2022-10-09 06:05:00 Minal Joy [facility] MAGNESIUM 2022-10-09 06:05:00 Benita [facility] CBC W/PLT COUNT & AUTO 2022-10-09 06:05:[address] [facility] XR CHEST 1 VIEW PORTABLE / 2022-10-08 15:08:00 Arin Landry [facility] US THORACENTESIS 2022-10-08 15:04:[address] [facility] PROTEIN, BODY FLUID 2022-10-08 14:53:00 Benita [facility] BODY FLUID CULTURE + GRAM 2022-10-08 14:53:00 Minal Joy CH I [facility] BODY FLUID CELL COUNT WITH 2022-10-08 14:53:00 Minal Joy [facility] GLUCOSE, BODY FLUID 2022-10-08 14:53:00 Benita [facility] LACTATE DEHYDROGENASE 2022-10-08 14:53:00 Minal Joy [facility] ([facility] CYTOLOGY 2022-10-08 14:53:00 Minal Joy [facility] URINALYSIS W/ REFLEX URINE 2022-10-08 14:17:00 Minal Joy [facility] PROTHROMBIN TIME/INR 2022-10-08 09:07:00 Benita [facility] URINALYSIS WITH MICROSCOPIC 2022-10-08 08:28:00 Leticia Enciso [facility] IF INDICATED [facility] URINALYSIS MICROSCOPIC 2022-10-08 08:28:[address] [facility] XR CHEST 1 VIEW PORTABLE / 2022-10-08 07:14:00 Leticia Enciso [facility] COMPREHENSIVE METABOLIC 2022-10-08 06:59:00 [facility] CBC W/PLT COUNT & AUTO 2022-10-08 04:38:00 [facility] CBC W/PLT COUNT & AUTO 2022-10-08 04:38:00 [facility] HIGH SENSITIVITY TROPONIN I 2022-10-07 22:10:00 [facility] B-TYPE NATRIURETIC FACTOR 2022-10-07 22:10:00 Leticia Enciso [facility] METABOLIC 2022-10-07 22:10:00 Stephen [facility] ECG 12-LEAD 2022-09-28 06:56:56 Unknown, Hl7 [facility] ECG 12-LEAD 2022-09-28 06:56:56 Curtis Douglas [facility] ECG 12-LEAD 2022-09-28 06:56:56 Unknown, Hl7 [facility] BASIC METABOLIC PANEL 2022-09-28 03:29:00 [facility] CBC W/PLT COUNT & AUTO 2022-09-28 03:29:00 [facility] MAGNESIUM 2022-09-28 03:29:00 [facility] CBC W/PLT COUNT & AUTO 2022-09-28 03:29:00 [facility] XR CHEST 1 VIEW PORTABLE / 2022-09-27 19:44:00 Babita [facility] ECG 12-LEAD 2022-09-27 17:29:42 Unknown, Hl7 [facility] ECG 12-LEAD 2022-09-27 17:29:42 Carlo [facility] ECG 12-LEAD 2022-09-27 17:29:42 Unknown, Hl7 [facility] INSERTION, ELECTRODE LEAD, 2022-09-27 13:34:00 Nitin Mane [facility] CARDIAC PACEMAKER [facility] ECG 12-LEAD 2022-09-27 06:12:00 Unknown, Hl7 [facility] ECG 12-LEAD 2022-09-27 06:12:00 Deshotels, Curtis Donato [facility] ECG 12-LEAD 2022-09-27 06:12:00 Unknown, Hl7 [facility] CBC W/PLT COUNT & AUTO 2022-09-27 04:09:[address] [facility] BASIC METABOLIC PANEL 2022-09-27 04:09:00 Joy [facility] MAGNESIUM 2022-09-27 04:09:00 Joy [facility] CBC W/PLT COUNT & AUTO 2022-09-27 04:09:[address] [facility] BASIC METABOLIC PANEL 2022-09-26 08:15:00 Ava Welsh [facility] ECG 12-LEAD 2022-09-26 04:52:37 Deshotels, Curtis Donato [facility] SARS-COV2/RT-PCR ([facility] & 2022-09-26 01:29:00 Brii Carey [facility] REF LABS) [facility] ECG 12-LEAD 2022-09-25 05:26:02 Deshotels, Curtis Donato [facility] BASIC METABOLIC PANEL 2022-09-24 14:29:00 Brii Carey [facility] ECG 12-LEAD 2022-09-24 13:45:16 Unknown, Hl7 [facility] ECG 12-LEAD 2022-09-24 13:45:16 Deshotels, Curtis Donato [facility] ECG 12-LEAD 2022-09-24 13:45:16 Unknown, Hl7 [facility] BASIC METABOLIC PANEL 2022-09-23 07:31:00 Brii Carey [facility] MAGNESIUM 2022-09-23 07:31:00 Cherry Volodymyrnatalia [facility] L [facility] CBC W/PLT COUNT & AUTO 2022-09-23 07:31:00 Cherry Brii Maher [facility] DIFFERENTIAL [facility] CBC W/PLT COUNT & AUTO 2022-09-23 07:31:00 Cherry Brii Maher HI [facility] DIFFERENTIAL [facility] ECG 12-LEAD 2022-09-23 07:19:04 Nikolay Cruz [facility] BASIC METABOLIC PANEL 2022-09-22 05:39:[address] [facility] CBC W/PLT COUNT & AUTO 2022-09-22 05:39:00 Senen Sergey [facility] DIFFERENTIAL [facility] MAGNESIUM 2022-09-22 05:39:[address] [facility] CBC W/PLT COUNT & AUTO 2022-09-22 05:39:00 Crescencio Sergey [facility] DIFFERENTIAL [facility] PREPARE RBC 2022-09-21 23:54:00 Jimy Pepper [facility] BODY FLUID CULTURE + GRAM 2022-09-21 13:31:00 July, Or CH I [facility] CYTOLOGY 2022-09-21 13:31:00 [facility] BODY FLUID CELL COUNT WITH 2022-09-21 13:30:00 Javon Mcdowell [facility] LACTATE DEHYDROGENASE 2022-09-21 13:29:00 [facility], [facility] ([facility] FLUID [facility] PROTEIN, BODY FLUID 2022-09-21 13:29:00 [facility] XR CHEST 1 VIEW PORTABLE / 2022-09-21 12:45:00 LoveYvette meadows [facility] BEDSIDE [facility] ECG 12-LEAD 2022-09-21 12:42:26 Unknown, Hl7 Doctor [facility] ECG 12-LEAD 2022-09-21 12:42:26 Dangelo Meredith [facility] ECG 12-LEAD 2022-09-21 12:42:26 Unknown, Hl7 Doctor [facility] ECG 12-LEAD 2022-09-21 12:41:57 Unknown, Hl7 [facility] ECG 12-LEAD 2022-09-21 12:41:57 Unknown, Hl7 [facility] BLOOD GAS, ARTERIAL 2022-09-21 11:33:00 Brii Carey [facility] HIGH SENSITIVITY TROPONIN I 2022-09-21 11:30:00 Herb Carey [facility] CBC W/PLT COUNT & AUTO 2022-09-21 11:30:00 Brii Carey [facility] BASIC METABOLIC PANEL 2022-09-21 11:30:00 [facility] LACTATE DEHYDROGENASE ([facility]) 2022-09-21 11:30:00 [facility] PROTEIN, TOTAL 2022-09-21 11:30:00 [facility] CBC W/PLT COUNT & AUTO 2022-09-21 11:30:00 Brii Carey [facility] ECG 12-LEAD 2022-09-21 08:54:19 Unknown, Hl7 [facility] ECG 12-LEAD 2022-09-21 08:54:19 LoveAva meadows [facility] ECG 12-LEAD 2022-09-21 08:54:19 Unknown, Hl7 [facility] BASIC METABOLIC PANEL 2022-09-21 04:17:00 Maria Aparicio [facility] CBC W/PLT COUNT & AUTO 2022-09-21 04:17:00 Maria Aparicio [facility] CBC W/PLT COUNT & AUTO 2022-09-21 04:17:00 Maria Aparicio [facility] HIGH SENSITIVITY TROPONIN I 2022-09-20 17:17:00 Paradise Welsh [facility] BASIC METABOLIC PANEL 2022-09-20 11:41:00 Ava Welsh [facility] LIPID PANEL 2022-09-20 11:41:00 Ava Welsh [facility] MAGNESIUM 2022-09-20 11:41:00 Ava Welsh [facility] CBC W/PLT COUNT & AUTO 2022-09-20 11:41:00 Ava Welsh [facility] HIGH SENSITIVITY TROPONIN I 2022-09-20 11:41:00 Paradise Welsh [facility] IRON, TIBC, % SAT. (WITHOUT 2022-09-20 11:41:00 Maria Aparicio [facility] FERRITIN) Medical Center FERRITIN 2022-09-20 11:41:00 Maria Aparicio [facility] CBC W/PLT COUNT & AUTO 2022-09-20 11:41:00 [facility] ECHO W CONTRAST & DOPPLER 2022-09-20 07:54:10 [facility] URINALYSIS W/ MICROSCOPIC 2022-09-20 06:52:00 [facility] ECG 12-LEAD 2022-09-20 04:39:43 Unknown, Hl7 [facility] ECG 12-LEAD 2022-09-20 04:39:43 Unknown, Hl7 [facility] ECG 12-LEAD 2022-09-20 04:39:43 Unknown, Hl7 [facility] TRANSFUSE LEUKO-REDUCED RED 2022-09-20 02:31:00 [facility] BLOOD CELLS [facility] BLOOD CULTURE 2022-09-19 23:13:00 [facility] TYPE AND SCREEN, AUTOMATED 2022-09-19 23:12:00 [facility] HIGH SENSITIVITY TROPONIN I 2022-09-19 21:56:00 [facility] CBC W/PLT COUNT & AUTO 2022-09-19 21:56:00 [facility] DIFFERENTIAL [facility] COMPREHENSIVE METABOLIC 2022-09-19 21:56:00 [facility] PANEL [facility] LACTIC ACID, VENOUS 2022-09-19 21:56:00 [facility] B-TYPE NATRIURETIC FACTOR 2022-09-19 21:56:00 [facility] I [facility] (BNP) [facility] HEMOGLOBIN A1C 2022-09-19 21:56:00 [facility] CBC W/PLT COUNT & AUTO 2022-09-19 21:56:00 [facility] XR CHEST 1 VIEW PORTABLE / 2022-09-19 21:11:00 Nikolay Cruz [facility] BEDSIDE [facility] CARDIAC CATH REPORT - SCAN 2022-09-19 00:00:00 ProviderAlireza [facility] ARRYTHMIA IMPLANT REPORT - 2022-09-19 00:00:00 Provider, Alireza [facility] CANCER ANTIGEN 125 2022-08-30 13:50:00 [facility] MAGNESIUM 2022-08-30 13:50:00 [facility] COMPREHENSIVE METABOLIC 2022-08-30 13:50:00 [facility] PANEL Medicine CBC W/AUTO DIFF WITH 2022-08-30 12:32:00 [facility] PLATELETS Medicine CBC W ABSOLUTE NEUTROPHIL 2022-08-30 06:39:00 [facility] COUNT Medicine COMPREHENSIVE METABOLIC 2022-08-30 06:39:00 [facility] PANEL Medicine PREPARE RBC 2022-08-26 23:54:[address] [facility] IR CV ACCESS FLUORO 2022-08-22 15:59:00 Donis Cruz [facility] IR PORT-A-CATH PLACEMENT 2022-08-22 15:59:[address] [facility] ANG U/S GUIDANCE FOR 2022-08-22 15:59:00 Donis Cruz [facility] VASCULAR ACCESS [facility] US THORACENTESIS 2022-08-18 11:57:00 Donis Cruz [facility] XR CHEST 1 VIEW PORTABLE / 2022-08-18 11:55:00 Andrea Landryssbaron amador [facility] CBC W/PLT COUNT & AUTO 2022-08-18 09:50:00 Frantz Arinbaron Chauhan [facility] PROTHROMBIN TIME/INR 2022-08-18 09:50:00 Arin Landry [facility] CBC W/PLT COUNT & AUTO 2022-08-18 09:50:00 Arin Landry [facility] ELECTROCARDIOGRAM COMPLETE 2022-08-15 14:55:[address] [facility] [address] ABDOMEN/PELVIS WITH IV 2022-08-03 16:46:00 [facility] CT CHEST WITH IV CONTRAST 2022-08-03 16:46:00 [facility] AMB REF TO INTERVENTIONAL 2022-08-03 15:35:49 [facility] EXTERNAL Medicine AMB REF TO CARDIOLOGY 2022-08-03 15:33:11 [facility] CANCER ANTIGEN 125 2022-08-03 14:42:00 [facility] CBC W/AUTO DIFF WITH 2022-08-03 14:42:00 [facility] PLATELETS Medicine COMPREHENSIVE METABOLIC 2022-08-03 14:42:00 [facility] PANEL Medicine CBC W/AUTO DIFF WITH 2022-08-03 14:15:18 [facility] PLATELETS Medicine [facility] METABOLIC 2022-08-03 14:15:18 [facility] PANEL Medicine CANCER ANTIGEN 125 2022-08-03 14:15:18 [facility] [id number] 2022-05-25 00:00:00 LEEGA [facility] [id number] 2022-05-25 00:00:00 LEEGA [facility] [id number] 2022-05-25 00:00:00 PATMA.12 [facility] [id number] 2022-05-25 00:00:00 PATMA.12 [facility] [id number] 2022-05-18 00:00:00 MIGEL [facility] [id number] 2022-05-18 00:00:00 MIGEL [facility] [id number] 2022-05-18 00:00:00 MIGEL [facility] [id number] 2022-05-18 00:00:00 MIGEL [facility] Plan of Care Planned Activity Planned Date Details Comments Source Future Scheduled 2023-11-[address] [facility] Test 00:00:00 [facility] Scre[facility] (12+) [code = Tobacco Cessation Counseling and Screening (12+)] Future Scheduled 2023-11-[address] [facility] 00:00:00 [facility] Screening (12+) [code = Tobacco Cessation Counseling and Screening (12+)] Future Scheduled 2023-11-[address] [facility] Test 00:00:00 [facility] Screening (12+) [code = Tobacco Cessation Counseling and Screening (12+)] Future Scheduled 2023-10-[address] [facility] Test 00:00:00 [facility] Screening (12+) [code = Tobacco Cessation Counseling and Screening (12+)] Future Scheduled 2023-10-[address] [facility] Test 00:00:00 [facility] r Screening (12+) [code = Tobacco Cessation Counseling and Screening (12+)] Future Scheduled 2023-10-[address] [facility] Test 00:00:00 [facility] Screening (12+) [code = Tobacco Cessation Counseling and Screening (12+)] Future Scheduled 2023-10-[address] [facility] Test 00:00:00 [facility] r Screening (12+) [code = Tobacco Cessation Counseling and Screening (12+)] Future Scheduled 2023-10-[address] [facility] Test 00:00:00 [facility] r Screening (12+) [code = Tobacco Cessation Counseling and Screening (12+)] Future Scheduled 2023-08-[address] [facility] Test 00:00:00 [facility] Cent[facility] r Screening (12+) [code = Tobacco Cessation Counseling and Screening (12+)] Future Scheduled 2022-11-22 CT CHEST W CONTRAST Expected: [employer] [facility] 00:00:00 [code = 75888-7] 11/22/2022, of Medicine Expires: 11/15/2023 Future Scheduled 2022-11-22 CT ABDOMEN PELVIS W Expected: [employer] [facility] 00:00:00 CONTRAST [code = 11/22/2022, of Medicine 30875-1] Expires: 11/15/2023 Future Scheduled 2022-11-[address] [facility] [address] [facility] 00:00:00 WELLNESS (YEAR 2 or Medical Center FIRST YEAR if no IPPE) [code = MEDICARE ANNUAL WELLNESS (YEAR 2 or FIRST YEAR if no IPPE)] Future Scheduled 2022-11-[address] [facility] 00:00:00 WELLNESS (YEAR 2 or Medical Center FIRST YEAR if no IPPE) [code = MEDICARE ANNUAL WELLNESS (YEAR 2 or FIRST YEAR if no IPPE)] Future Scheduled 2022-11-[address] [facility] 00:00:00 WELLNESS (YEAR 2 or Medical Center FIRST YEAR if no IPPE) [code = MEDICARE ANNUAL WELLNESS (YEAR 2 or FIRST YEAR if no IPPE)] Future Scheduled 2022-11-[address] [facility] 00:00:00 WELLNESS (YEAR 2 or Medical Center FIRST YEAR if no IPPE) [code = MEDICARE ANNUAL WELLNESS (YEAR 2 or FIRST YEAR if no IPPE)] Future Scheduled 2022-11-[address] [facility] 00:00:00 (12+) [code = Medical Center DEPRESSION SCREENING (12+)] Future Scheduled 2022-11-20 FALLS RISK SCREENING [facility] Test 00:00:00 [code = FALLS RISK Medical C enter SCREENING] Future Scheduled 2022-11-[address] [facility] 00:00:00 (12+) [code = Medical Center DEPRESSION SCREENING (12+)] Future Scheduled 2022-11-20 FALLS RISK SCREENING [facility] Test 00:00:00 [code = FALLS RISK Medical C enter SCREENING] Future Scheduled 2022-11-[address] [facility] Test 00:00:00 (12+) [code = Medical Center DEPRESSION SCREENING (12+)] Future Scheduled 2022-11-20 FALLS RISK SCREENING [facility] Test 00:00:00 [code = FALLS RISK Medical C enter SCREENING] Future Scheduled 2022-11-[address] [facility] Test 00:00:00 (12+) [code = Medical Center DEPRESSION SCREENING (12+)] Future Scheduled 2022-11-20 FALLS RISK SCREENING [facility] 00:00:00 [code = FALLS RISK Medical C enter SCREENING] Future Scheduled 2022-11-15 COVID-19 Vaccine [facility] Test 11:54:31 (#1) [code = of Medicine COVID-19 Vaccine (#1)] Future Scheduled 2022-11-15 Pneumococcal 65+ (1 [employer] [facility] 11:54:31 - PCV) [code = of Medicine Pneumococcal 65+ (1 - PCV)] Future Scheduled 2022-11-15 TETANUS SHOT (ADULT) [employer] [facility] 11:54:31 [code = TETANUS SHOT of Medi cine (ADULT)] Future Scheduled 2022-11-15 ZOSTER VACCINE (1 of [employer] Test 11:54:31 2) [code = ZOSTER of Medicin e VACCINE (1 of 2)] Future Scheduled 2022-11-15 FALL SCREEN [code = [employer] [facility] 11:54:31 FALL SCREEN] of Medicine Future Scheduled 2022-11-15 Screening for [facility] Test 11:54:31 osteoporosis of Medicine (procedure) [code = [id number]] Future Scheduled 2022-11-15 MEDICARE AWV [facility] 11:54:31 (Initial) [code = of Medicin e MEDICARE AWV (Initial)] Future Scheduled 2022-11-15 CREATININE,RANDOM Ordered: [facility] Test 11:33:26 URINE [code = 11/15/2022 of Medicine 2161-8] Future Scheduled 2022-11-15 SODIUM, RANDOM URINE Ordered: [facility] Test 11:33:26 [code = 10113] 11/15/2022 of Medicine Future Scheduled 2022-11-15 CULTURE, Ordered: [facility] 10:47:49 URINE/SENSITIVITY ON 11/15/2022 of Medi cine ALL [code = 51451-7] Future Scheduled 2022-10-31 COVID-19 Vaccine [facility] Test 08:18:44 (#1) [code = of Medicine COVID-19 Vaccine (#1)] Future Scheduled 2022-10-31 Pneumococcal 65+ (1 [employer] Test 08:18:44 - PCV) [code = of Medicine Pneumococcal 65+ (1 - PCV)] Future Scheduled 2022-10-31 TETANUS SHOT (ADULT) [employer] [facility] 08:18:44 [code = TETANUS SHOT of Medi cine (ADULT)] Future Scheduled 2022-10-31 ZOSTER VACCINE (1 of [employer] [facility] 08:18:44 2) [code = ZOSTER of Medicin e VACCINE (1 of 2)] Future Scheduled 2022-10-31 FALL SCREEN [code = [employer] [facility] 08:18:44 FALL SCREEN] of Medicine Future Scheduled 2022-10-31 Screening for [facility] Test 08:18:44 osteoporosis of Medicine (procedure) [code = [id number]] Future Scheduled 2022-10-31 MEDICARE AWV [facility] 08:18:44 (Initial) [code = of Medicin e MEDICARE AWV (Initial)] Future Scheduled 2022-10-25 COVID-19 Vaccine [facility] Test 10:49:42 (#1) [code = of Medicine COVID-19 Vaccine (#1)] Future Scheduled 2022-10-25 Pneumococcal 65+ (1 [employer] Test 10:49:42 - PCV) [code = of Medicine Pneumococcal 65+ (1 - PCV)] Future Scheduled 2022-10-25 TETANUS SHOT (ADULT) [employer] [facility] 10:49:42 [code = TETANUS SHOT of Medi cine (ADULT)] Future Scheduled 2022-10-25 ZOSTER VACCINE (1 of [employer] [facility] 10:49:42 2) [code = ZOSTER of Medicin e VACCINE (1 of 2)] Future Scheduled 2022-10-25 FALL SCREEN [code = [employer] [facility] 10:49:42 FALL SCREEN] of Medicine Future Scheduled 2022-10-25 Screening for [facility] Test 10:49:42 osteoporosis of Medicine (procedure) [code = [id number]] Future Scheduled 2022-10-25 MEDICARE AWV [facility] 10:49:42 (Initial) [code = of Medicin e MEDICARE AWV (Initial)] Future Scheduled 2022-10-18 COVID-19 Vaccine [facility] [employer] Test 08:34:34 (#1) [code = of Medicine COVID-19 Vaccine (#1)] Future Scheduled 2022-10-18 Pneumococcal 65+ (1 [employer] Test 08:34:34 - PCV) [code = of Medicine Pneumococcal 65+ (1 - PCV)] Future Scheduled 2022-10-18 TETANUS SHOT (ADULT) [employer] Test 08:34:34 [code = TETANUS SHOT of Medi cine (ADULT)] Future Scheduled 2022-10-18 ZOSTER VACCINE (1 of [employer] Test 08:34:34 2) [code = ZOSTER of Medicin e VACCINE (1 of 2)] Future Scheduled 2022-10-18 FALL SCREEN [code = [employer] [facility] 08:34:34 FALL SCREEN] of Medicine Future Scheduled 2022-10-18 Screening for [facility] 08:34:34 osteoporosis of Medicine (procedure) [code = [id number]] Future Scheduled 2022-10-18 MEDICARE AWV [facility] 08:34:34 (Initial) [code = of Medicin e MEDICARE AWV (Initial)] Future Scheduled 2022-10-18 FLU VACCINE > 6 [facility] [employer] 08:34:34 MONTHS [code = FLU of Medici ne VACCINE > 6 MONTHS] Future Scheduled 2022-10-18 BASIC METABOLIC Ordered: [facility] Test 08:24:05 PANEL [code = 10/18/2022 of Medicine 87190-5] Future Scheduled 2022-08-30 ZOSTER VACCINE (1 of [employer] [facility] 09:14:21 2) [code = ZOSTER of Medicin e VACCINE (1 of 2)] Future Scheduled 2022-08-30 FALL SCREEN [code = [employer] [facility] 09:14:21 FALL SCREEN] of Medicine Future Scheduled 2022-08-30 Screening for [facility] 09:14:21 osteoporosis of Medicine (procedure) [code = [id number]] Future Scheduled 2022-08-30 FLU VACCINE > 6 [facility] Test 09:14:21 MONTHS [code = FLU of Medici ne VACCINE > 6 MONTHS] Future Scheduled 2022-08-30 COVID-19 Vaccine [facility] [employer] Test 09:14:21 (#1) [code = of Medicine COVID-19 Vaccine (#1)] Future Scheduled 2022-08-30 Pneumococcal 65+ (1 [employer] Test 09:14:21 - PCV) [code = of Medicine Pneumococcal 65+ (1 - PCV)] Future Scheduled 2022-08-30 TETANUS SHOT (ADULT) [employer] Test 09:14:21 [code = TETANUS SHOT of Medi cine (ADULT)] Future Scheduled 2022-08-30 BMI FOLLOW UP PLAN [facility] Test 09:14:21 [code = BMI FOLLOW of Medici ne UP PLAN] Future Scheduled 2022-08-24 COVID-19 Vaccine [facility] Test 09:21:34 (#1) [code = of Medicine COVID-19 Vaccine (#1)] Future Scheduled 2022-08-24 Pneumococcal 65+ (1 [employer] Test 09:21:34 - PCV) [code = of Medicine Pneumococcal 65+ (1 - PCV)] Future Scheduled 2022-08-24 TETANUS SHOT (ADULT) [facility] Test 09:21:34 [code = TETANUS SHOT of Medi cine (ADULT)] Future Scheduled 2022-08-24 BMI FOLLOW UP PLAN [facility] Test 09:21:34 [code = BMI FOLLOW of Medici ne UP PLAN] Future Scheduled 2022-08-24 ZOSTER VACCINE (1 of [facility] Test 09:21:34 2) [code = ZOSTER of Medicin e VACCINE (1 of 2)] Future Scheduled 2022-08-24 FALL SCREEN [code = [employer] [facility] 09:21:34 FALL SCREEN] of Medicine Future Scheduled 2022-08-24 Screening for [facility] Test 09:21:34 osteoporosis of Medicine (procedure) [code = [id number]] Future Scheduled 2022-08-24 FLU VACCINE > 6 [facility] Test 09:21:34 MONTHS [code = FLU of Medici ne VACCINE > 6 MONTHS] Future Scheduled 2022-07-[address] [facility] Test 00:00:00 (#1) [code = Medical Center INFLUENZA VACCINE (#1)] Future Scheduled 2022-07-[address] [facility] Test 00:00:00 (#1) [code = Medical Center INFLUENZA VACCINE (#1)] Future Scheduled 2022-07-[address] [facility] Test 00:00:00 (#1) [code = Medical Center INFLUENZA VACCINE (#1)] Future Scheduled 2022-07-[address] [facility] Test 00:00:00 (#1) [code = Medical Center INFLUENZA VACCINE (#1)] Future Scheduled 2022-07-[address] [facility] Test 00:00:00 (#1) [code = Medical Center INFLUENZA VACCINE (#1)] Future Scheduled 2022-07-[address] [facility] Test 00:00:00 (#1) [code = Medical Center INFLUENZA VACCINE (#1)] Future Scheduled 2022-07-[address] [facility] Test 00:00:00 (#1) [code = Medical Center INFLUENZA VACCINE (#1)] Future Scheduled 2022-07-[address] [facility] Test 00:00:00 (#1) [code = Medical Center INFLUENZA VACCINE (#1)] Future Scheduled 2022-07-[address] [facility] Test 00:00:00 (#1) [code = Medical Center INFLUENZA VACCINE (#1)] Future Scheduled 2022-07-[address] [facility] Test 00:00:00 (#1) [code = Medical Center INFLUENZA VACCINE (#1)] Future Scheduled 2022-07-[address] [facility] Test 00:00:00 (#1) [code = Medical Center INFLUENZA VACCINE (#1)] Future Scheduled 2022-07-[address] [facility] Test 00:00:00 (#1) [code = Medical Center INFLUENZA VACCINE (#1)] Future Scheduled 2022-07-[address] [facility] Test 00:00:00 (#1) [code = Medical Center INFLUENZA VACCINE (#1)] Future Scheduled 2022-07-[address] [facility] Test 00:00:00 (#1) [code = Medical Center INFLUENZA VACCINE (#1)] Future Scheduled 2022-07-[address] [facility] Test 00:00:00 (#1) [code = Medical Center INFLUENZA VACCINE (#1)] Future Scheduled 2022-07-[address] [facility] Test 00:00:00 (#1) [code = Medical Center INFLUENZA VACCINE (#1)] Future Scheduled 2022-07-[address] [facility] Test 00:00:00 (#1) [code = Medical Center INFLUENZA VACCINE (#1)] Future Scheduled 2022-07-[address] [facility] Test 00:00:00 (#1) [code = Medical Center INFLUENZA VACCINE (#1)] Future Scheduled 2022-07-[address] [facility] Test 00:00:00 (#1) [code = Medical Center INFLUENZA VACCINE (#1)] Future Scheduled 2022-07-[address] [facility] Test 00:00:00 (#1) [code = Medical Center INFLUENZA VACCINE (#1)] Future Scheduled 2022-07-[address] [facility] Test 00:00:00 (#1) [code = Medical Center INFLUENZA VACCINE (#1)] Future Scheduled 2022-07-[address] [facility] Test 00:00:00 (#1) [code = Medical Center INFLUENZA VACCINE (#1)] Future Scheduled 2022-07-[address] [facility] Test 00:00:00 (#1) [code = Medical Center INFLUENZA VACCINE (#1)] Future Scheduled 2022-07-[address] [facility] Test 00:00:00 (#1) [code = Medical Center INFLUENZA VACCINE (#1)] Future Scheduled 2022-07-[address] [facility] Test 00:00:00 (#1) [code = Medical Center INFLUENZA VACCINE (#1)] Future Scheduled 2022-07-[address] [facility] Test 00:00:00 (#1) [code = Medical Center INFLUENZA VACCINE (#1)] Future Scheduled 2022-07-[address] [facility] Test 00:00:00 (#1) [code = Medical Center INFLUENZA VACCINE (#1)] Future Scheduled 2022-07-[address] [facility] Test 00:00:00 (#1) [code = Medical Center INFLUENZA VACCINE (#1)] Future Scheduled 2022-07-[address] [facility] Test 00:00:00 (#1) [code = Medical Center INFLUENZA VACCINE (#1)] Future Scheduled 2022-07-[address] [facility] Test 00:00:00 (#1) [code = Medical Center INFLUENZA VACCINE (#1)] Future Scheduled 2022-07-[address] [facility] Test 00:00:00 (#1) [code = Medical Center INFLUENZA VACCINE (#1)] Future Scheduled 2022-07-[address] [facility] Test 00:00:00 (#1) [code = Medical Center INFLUENZA VACCINE (#1)] Future Scheduled 2022-07-[address] [facility] Test 00:00:00 (#1) [code = Medical Center INFLUENZA VACCINE (#1)] Future Scheduled 2022-07-[address] [facility] Test 00:00:00 (#1) [code = Medical Center INFLUENZA VACCINE (#1)] Future Scheduled 2022-07-[address] [facility] Test 00:00:00 (#1) [code = Medical Center INFLUENZA VACCINE (#1)] Future Scheduled 2022-07-[address] [facility] Test 00:00:00 (#1) [code = Medical Center INFLUENZA VACCINE (#1)] Future Scheduled 2022-07-[address] [facility] Test 00:00:00 (#1) [code = Medical Center INFLUENZA VACCINE (#1)] Future Scheduled 2022-07-[address] [facility] Test 00:00:00 (#1) [code = Medical Center INFLUENZA VACCINE (#1)] Future Scheduled 2022-07-[address] [facility] Test 00:00:00 (#1) [code = Medical Center INFLUENZA VACCINE (#1)] Future Scheduled 2022-07-[address] [facility] Test 00:00:00 (#1) [code = Medical Center INFLUENZA VACCINE (#1)] Future Scheduled 2022-07-[address] [facility] Test 00:00:00 (#1) [code = Medical Center INFLUENZA VACCINE (#1)] Future Scheduled 2022-07-[address] [facility] Test 00:00:00 (#1) [code = Medical Center INFLUENZA VACCINE (#1)] Future Scheduled 2022-07-[address] [facility] Test 00:00:00 (#1) [code = Medical Center INFLUENZA VACCINE (#1)] Future Scheduled 2022-07-[address] [facility] Test 00:00:00 (#1) [code = Medical Center INFLUENZA VACCINE (#1)] Future Scheduled 2021-11-20 FALLS RISK SCREENING [facility] Test 00:00:00 [code = FALLS RISK Medical C enter SCREENING] Future Scheduled 2021-11-[address] [facility] 00:00:00 (WELCOME TO Medical Center MEDICARE) [code = Medicare IPPE (WELCOME TO MEDICARE)] Future Scheduled 2021-11-[address] [facility] Test 00:00:00 (12+) [code = Medical Center DEPRESSION SCREENING (12+)] Future Scheduled 2021-11-[address] [facility]CREENING [facility] Test 00:00:00 [code = FALLS RISK Medical C enter SCREENING] Future Scheduled 2021-11-[address] [facility] 00:00:00 (WELCOME TO Medical Center MEDICARE) [code = Medicare IPPE (WELCOME TO MEDICARE)] Future Scheduled 2021-11-[address] [facility] Test 00:00:00 (12+) [code = Medical Center DEPRESSION SCREENING (12+)] Future Scheduled 2021-11-20 F[address] RISK SCREENING [facility] Test 00:00:00 [code = FALLS RISK Medical C enter SCREENING] Future Scheduled 2021-11-[address] [facility] 00:00:00 (WELCOME TO Medical Center MEDICARE) [code = Medicare IPPE (WELCOME TO MEDICARE)] Future Scheduled 2021-11-[address] [facility] Test 00:00:00 (12+) [code = Medical Center DEPRESSION SCREENING (12+)] Future Scheduled 2021-11-[address] [facility] 00:00:00 (WELCOME TO Medical Center MEDICARE) [code = Medicare IPPE (WELCOME TO MEDICARE)] Future Scheduled 2021-11-[address] [facility] Test 00:00:00 (12+) [code = Medical Center DEPRESSION SCREENING (12+)] Future Scheduled 2021-11-[address] [facility] 00:00:00 (WELCOME TO Medical Center MEDICARE) [code = Medicare IPPE (WELCOME TO MEDICARE)] Future Scheduled 2021-11-[address] [facility] Test 00:00:00 (12+) [code = Medical Center DEPRESSION SCREENING (12+)] Future Scheduled 2021-11-[address] [facility] 00:00:00 (WELCOME TO Medical Center MEDICARE) [code = Medicare IPPE (WELCOME TO MEDICARE)] Future Scheduled 2021-11-[address] [facility] Test 00:00:00 (12+) [code = Medical Center DEPRESSION SCREENING (12+)] Future Scheduled 2021-11-20 F[address] RISK SCREENING [facility] Test 00:00:00 [code = FALLS RISK Medical C enter SCREENING] Future Scheduled 2021-11-[address] [facility] 00:00:00 (WELCOME TO Medical Center MEDICARE) [code = Medicare IPPE (WELCOME TO MEDICARE)] Future Scheduled 2021-11-[address] [facility] Test 00:00:00 (12+) [code = Medical Center DEPRESSION SCREENING (12+)] Future Scheduled 2021-11-[address] [facility] 00:00:00 (WELCOME TO Medical Center MEDICARE) [code = Medicare IPPE (WELCOME TO MEDICARE)] Future Scheduled 2021-11-[address] [facility] Test 00:00:00 (12+) [code = Medical Center DEPRESSION SCREENING (12+)] Future Scheduled 2021-11-[address] [facility] 00:00:00 (WELCOME TO Medical Center MEDICARE) [code = Medicare IPPE (WELCOME TO MEDICARE)] Future Scheduled 2021-11-[address] [facility] Test 00:00:00 (12+) [code = Medical Center DEPRESSION SCREENING (12+)] Future Scheduled 2021-11-[address] [facility] 00:00:00 (WELCOME TO Medical Center MEDICARE) [code = Medicare IPPE (WELCOME TO MEDICARE)] Future Scheduled 2021-11-[address] [facility] Test 00:00:00 (12+) [code = Medical Center DEPRESSION SCREENING (12+)] Future Scheduled 2021-11-20 F[address]S RISK SCREENING [facility] Test 00:00:00 [code = FALLS RISK Medical C enter SCREENING] Future Scheduled 2021-11-20 F[place] RISK SCREENING [facility] Test 00:00:00 [code = FALLS RISK Medical C enter SCREENING] Future Scheduled 2021-11-[address] [facility] 00:00:00 (WELCOME TO Medical Center MEDICARE) [code = Medicare IPPE (WELCOME TO MEDICARE)] Future Scheduled 2021-11-[address] [facility] Test 00:00:00 (12+) [code = Medical Center DEPRESSION SCREENING (12+)] Future Scheduled 2021-11-20 F[place]S RISK SCREENING [facility] Test 00:00:00 [code = FALLS RISK Medical C enter SCREENING] Future Scheduled 2021-11-[address] [facility] 00:00:00 (WELCOME TO Medical Center MEDICARE) [code = Medicare IPPE (WELCOME TO MEDICARE)] Future Scheduled 2021-11-[address] [facility] 00:00:00 (WELCOME TO Medical Center MEDICARE) [code = Medicare IPPE (WELCOME TO MEDICARE)] Future Scheduled 2021-11-[address] [facility] Test 00:00:00 (12+) [code = Medical Center DEPRESSION SCREENING (12+)] Future Scheduled 2021-11-20 FALLS RISK SCREENING [facility] Test 00:00:00 [code = FALLS RISK Medical C enter SCREENING] Future Scheduled 2021-11-[address] [facility] 00:00:00 (WELCOME TO Medical Center MEDICARE) [code = Medicare IPPE (WELCOME TO MEDICARE)] Future Scheduled 2021-11-[address] [facility] Test 00:00:00 (12+) [code = Medical Center DEPRESSION SCREENING (12+)] Future Scheduled 2021-11-20 FALLS RISK SCREENING [facility] Test 00:00:00 [code = FALLS RISK Medical C enter SCREENING] Future Scheduled 2021-11-[address] [facility] 00:00:00 (WELCOME TO Medical Center MEDICARE) [code = Medicare IPPE (WELCOME TO MEDICARE)] Future Scheduled 2021-11-[address] [facility] Test 00:00:00 (12+) [code = Medical Center DEPRESSION SCREENING (12+)] Future Scheduled 2021-11-20 FALLS RISK SCREENING [facility] Test 00:00:00 [code = FALLS RISK Medical C enter SCREENING] Future Scheduled 2021-11-[address] [facility] 00:00:00 (WELCOME TO Medical Center MEDICARE) [code = Medicare IPPE (WELCOME TO MEDICARE)] Future Scheduled 2021-11-[address] [facility] Test 00:00:00 (12+) [code = Medical Center DEPRESSION SCREENING (12+)] Future Scheduled 2021-11-20 FALLS RISK SCREENING [facility] 00:00:00 [code = FALLS RISK Medical C enter SCREENING] Future Scheduled 2021-11-[address] [facility] 00:00:00 (WELCOME TO [facility] MEDICARE) [code = Medicare IPPE (WELCOME TO MEDICARE)] Future Scheduled 2021-11-[address] [facility] Test 00:00:00 (12+) [code = Medical Center DEPRESSION SCREENING (12+)] Future Scheduled 2021-11-20 FALLS RISK SCREENING [facility] 00:00:00 [code = FALLS RISK Medical C enter SCREENING] Future Scheduled 2021-11-[address] [facility] 00:00:00 (WELCOME TO [facility] MEDICARE) [code = Medicare IPPE (WELCOME TO MEDICARE)] Future Scheduled 2021-11-[address] [facility] Test 00:00:00 (12+) [code = Medical Center DEPRESSION SCREENING (12+)] Future Scheduled 2021-11-20 FALLS RISK SCREENING [facility] 00:00:00 [code = FALLS RISK Medical C enter SCREENING] Future Scheduled 2021-11-[address] [facility] 00:00:00 (WELCOME TO [facility] MEDICARE) [code = Medicare IPPE (WELCOME TO MEDICARE)] Future Scheduled 2021-11-[address] [facility] Test 00:00:00 (12+) [code = Medical Center DEPRESSION SCREENING (12+)] Future Scheduled 2021-11-20 FALLS RISK SCREENING [facility] 00:00:00 [code = FALLS RISK Medical C enter SCREENING] Future Scheduled 2021-11-[address] [facility] 00:00:00 (WELCOME TO [facility] MEDICARE) [code = Medicare IPPE (WELCOME TO MEDICARE)] Future Scheduled [...] enter SCREENING] Future Scheduled 2021-11-[address] [facility] 00:00:00 (WELCOME TO Medical Center MEDICARE) [code = Medicare IPPE (WELCOME TO MEDICARE)] Future Scheduled 2021-11-[address] [facility] 00:00:00 (12+) [code = Medical Center DEPRESSION SCREENING (12+)] Future Scheduled 2021-11-20 FALLS RISK SCREENING [facility] 00:00:00 [code = FALLS RISK Medical C enter SCREENING] Future Scheduled 2021-11-20 FALLS RISK SCREENING [facility] 00:00:00 [code = FALLS RISK Medical C enter SCREENING] Future Scheduled 2021-11-[address] [facility] 00:00:00 (WELCOME TO Medical Center MEDICARE) [code = Medicare IPPE (WELCOME TO MEDICARE)] Future Scheduled 2021-11-[address] [facility] Test 00:00:00 (12+) [code = Medical Center DEPRESSION SCREENING (12+)] Future Scheduled 2021-11-20 FALLS RISK SCREENING [facility] 00:00:00 [code = FALLS RISK Medical C enter SCREENING] Future Scheduled 2021-11-[address] [facility] 00:00:00 (WELCOME TO Medical [facility] MEDICARE) [code = Medicare IPPE (WELCOME TO MEDICARE)] Future Scheduled 2021-11-[address] [facility] 00:00:00 (WELCOME TO Medical Center MEDICARE) [code = Medicare IPPE (WELCOME TO MEDICARE)] Future Scheduled 2021-11-[address] [facility] Test 00:00:00 (12+) [code = Medical Center DEPRESSION SCREENING (12+)] Future Scheduled 2021-11-20 FALLS RISK SCREENING [facility] 00:00:00 [code = FALLS RISK Medical C enter SCREENING] Future Scheduled 2021-11-[address] [facility] 00:00:00 (WELCOME TO Medical [facility] MEDICARE) [code = Medicare IPPE (WELCOME TO MEDICARE)] Future Scheduled 2021-11-[address] [facility] Test 00:00:00 (12+) [code = Medical Center DEPRESSION SCREENING (12+)] Future Scheduled 2021-11-20 FALLS RISK SCREENING [facility] Test 00:00:00 [code = FALLS RISK Medical C enter SCREENING] Future Scheduled 2021-11-[address] [facility] 00:00:00 (WELCOME TO Medical Center MEDICARE) [code = Medicare IPPE (WELCOME TO MEDICARE)] Future Scheduled 2021-11-[address] [facility] 00:00:00 (12+) [code = Medical Center DEPRESSION SCREENING (12+)] Future Scheduled 2021-11-20 FALLS RISK SCREENING [facility] Test 00:00:00 [code = FALLS RISK Medical C enter SCREENING] Future Scheduled 2021-11-[address] [facility] 00:00:00 (WELCOME TO [facility] MEDICARE) [code = Medicare IPPE (WELCOME TO MEDICARE)] Future Scheduled 2021-11-[address] [facility] Test 00:00:00 (12+) [code = Medical Center DEPRESSION SCREENING (12+)] Future Scheduled 2021-11-20 FALLS RISK SCREENING [facility] 00:00:00 [code = FALLS RISK Medical C enter SCREENING] Future Scheduled 2021-11-[address] [facility] 00:00:00 (WELCOME TO Medical Center MEDICARE) [code = Medicare IPPE (WELCOME TO MEDICARE)] Future Scheduled 2021-11-[address] [facility] 00:00:00 (12+) [code = Medical Center DEPRESSION SCREENING (12+)] Future Scheduled 2021-11-20 FALLS RISK SCREENING [facility] 00:00:00 [code = FALLS RISK Medical C enter SCREENING] Future Scheduled 2021-11-[address] [facility] 00:00:00 (WELCOME TO Medical Center MEDICARE) [code = Medicare IPPE (WELCOME TO MEDICARE)] Future Scheduled 2021-11-[address] [facility] Test 00:00:00 (12+) [code = Medical Center DEPRESSION SCREENING (12+)] Future Scheduled 2021-11-20 FALLS RISK SCREENING [facility] 00:00:00 [code = FALLS RISK Medical C enter SCREENING] Future Scheduled 2021-11-[address] [facility] 00:00:00 (WELCOME TO Medical Center MEDICARE) [code = Medicare IPPE (WELCOME TO MEDICARE)] Future Scheduled 2021-11-[address] [facility] 00:00:00 (12+) [code = Medical Center DEPRESSION SCREENING (12+)] Future Scheduled 2021-11-20 FALLS RISK SCREENING [facility] 00:00:00 [code = FALLS RISK Medical C enter SCREENING] Future Scheduled 2021-11-[address] [facility] 00:00:00 (WELCOME TO Medical Center MEDICARE) [code = Medicare IPPE (WELCOME TO MEDICARE)] Future Scheduled [...] enter SCREENING] Future Scheduled 2021-11-[address] [facility] 00:00:00 (WELCOME TO [facility] Center MEDICARE) [code = Medicare IPPE (WELCOME TO MEDICARE)] Future Scheduled 2021-11-[address] [facility] 00:00:00 (12+) [code = Medical Center DEPRESSION SCREENING (12+)] Future Scheduled 2021-11-20 FALLS RISK SCREENING [facility] 00:00:00 [code = FALLS RISK Medical C enter SCREENING] Future Scheduled 2021-11-20 F[place] RIS[place] SCRE[facility]ING [facility] Test 00:00:00 [code = FALLS RISK Medical C enter SCREENING] Future Scheduled 2021-11-[address] [facility] 00:00:00 ([facility]E TO [facility] MEDICARE) [code = Medicare IPPE (WELCOME TO MEDICARE)] Future Scheduled 2021-11-[address] [facility] Test 00:00:00 (12+) [code = Medical Center DEPRESSION SCREENING (12+)] Future Scheduled 2021-11-20 F[place] RIS[place] [facility]CRE[facility] Test 00:00:00 [code = FALLS RISK Medical C enter SCREENING] Future Scheduled 2021-11-[address] [facility] 00:00:00 ([facility]E TO [facility] MEDICARE) [code = Medicare IPPE (WELCOME TO MEDICARE)] Future Scheduled 2021-11-[address] [facility] 00:00:00 ([facility]ELCOME TO Medical [facility] MEDICARE) [code = Medicare IPPE (WELCOME TO MEDICARE)] Future Scheduled 2021-11-[address] [facility] Test 00:00:00 (12+) [code = Medical Center DEPRESSION SCREENING (12+)] Future Scheduled 2021-11-[address] [facility] 00:00:00 [code = FALLS RISK Medical C enter SCREENING] Future Scheduled 2021-11-[address] [facility] (WELCOME TO Medical Center MEDICARE) [code = Medicare IPPE (WELCOME TO MEDICARE)] Future Scheduled 2021-11-[address] [facility] 00:00:00 (12+) [code = Medical Center DEPRESSION SCREENING (12+)] Future Scheduled 2021-11-[address] [facility] 00:00:00 [code = FALLS RISK Medical C enter SCREENING] Future Scheduled 2021-11-[address] [facility] 00:00:00 (WELCOME TO Medical Center MEDICARE) [code = Medicare IPPE (WELCOME TO MEDICARE)] Future Scheduled 2021-11-[address] [facility] 00:00:00 (12+) [code = Medical Center DEPRESSION SCREENING (12+)] Future Scheduled 2021-11-[address] [facility] 00:00:00 [code = FALLS RISK Medical C enter SCREENING] Future Scheduled 2021-11-[address] [facility] 00:00:00 (WELCOME TO Medical Center MEDICARE) [code = Medicare IPPE (WELCOME TO MEDICARE)] Future Scheduled 2021-11-[address] [facility] 00:00:00 (12+) [code = Medical Center DEPRESSION SCREENING (12+)] Future Scheduled 2021-11-[address] [facility] 00:00:00 [code = FALLS RISK Medical C enter SCREENING] Future Scheduled 2021-11-[address] [facility] 00:00:00 (WELCOME TO Medical Center MEDICARE) [code = Medicare IPPE (WELCOME TO MEDICARE)] Future Scheduled 2021-11-[address] [facility] 00:00:00 (12+) [code = Medical Center DEPRESSION SCREENING (12+)] Future Scheduled 2021-11-[address] [facility] 00:00:00 [code = FALLS RISK Medical C enter SCREENING] Future Scheduled 2021-11-[address] [facility] 00:00:00 (WELCOME TO Medical Center MEDICARE) [code = Medicare IPPE (WELCOME TO MEDICARE)] Future Scheduled 2021-11-[address] [facility] 00:00:00 (12+) [code = Medical Center DEPRESSION SCREENING (12+)] Future Scheduled 2021-11-[address] [facility] 00:00:00 [code = FALLS RISK Medical C enter SCREENING] Future Scheduled 2021-11-[address] [facility] 00:00:00 (WELCOME TO Medical Center MEDICARE) [code = Medicare IPPE (WELCOME TO MEDICARE)] Future Scheduled 2021-11-[address] [facility] 00:00:00 (12+) [code = Medical Center DEPRESSION SCREENING (12+)] Future Scheduled 2021-11-[address] [facility] 00:00:00 [code = FALLS RISK Medical C enter SCREENING] Future Scheduled 2021-11-[address] [facility] 00:00:00 (WELCOME TO Medical Center MEDICARE) [code = Medicare IPPE (WELCOME TO MEDICARE)] Future Scheduled [...] enter SCREENING] Future Scheduled 2021-11-[address] [facility] 00:00:00 (WELCOME TO Medical Center MEDICARE) [code = Medicare IPPE (WELCOME TO MEDICARE)] Future Scheduled [facility] 2) [code = Medical Center SHINGLES VACCINES (1 of 2)] Future Scheduled 1985 SHINGLES VACCINES ([address] [facility] 00:00:00 of 2) [code = Medical Center SHINGLES VACCINES (1 of 2)] Future Scheduled 1985 SHINGLES VACCINES ([address] [facility] 00:00:00 of 2) [code = Medical Center SHINGLES VACCINES (1 of 2)] Future Scheduled 1985 SHINGLES VACCINES ([address] [facility] 00:00:00 of 2) [code = Medical Center SHINGLES VACCINES (1 of 2)] Future Scheduled 1985 SHINGLES VACCINES ([address] [facility] 00:00:00 of 2) [code = Medical Center SHINGLES VACCINES (1 of 2)] Future Scheduled 1985 SHINGLES VACCINES ([address] [facility] 00:00:00 of 2) [code = Medical Center SHINGLES VACCINES (1 of 2)] Future Scheduled 1985 SHINGLES VACCINES ([address] [facility] 00:00:00 of 2) [code = Medical Center SHINGLES VACCINES (1 of 2)] Future Scheduled 1985 SHINGLES VACCINES ([address] [facility] 00:00:00 of 2) [code = Medical Center SHINGLES VACCINES (1 of 2)] Future Scheduled 1985 SHINGLES VACCINES ([address] [facility] 00:00:00 of 2) [code = Medical Center SHINGLES VACCINES (1 of 2)] Future Scheduled 1985 SHINGLES VACCINES ([address] [facility] 00:00:00 of 2) [code = Medical Center SHINGLES VACCINES (1 of 2)] Future Scheduled 1985 SHINGLES VACCINES ([address] [facility] 00:00:00 of 2) [code = Medical Center SHINGLES VACCINES (1 of 2)] Future Scheduled 1985 SHINGLES VACCINES ([address] [facility] 00:00:00 of 2) [code = Medical Center SHINGLES VACCINES (1 of 2)] Future Scheduled 1985 SHINGLES VACCINES ([address] [facility] 00:00:00 of 2) [code = Medical Center SHINGLES VACCINES (1 of 2)] Future Scheduled 1985 SHINGLES VACCINES ([address] [facility] 00:00:00 of 2) [code = Medical Center SHINGLES VACCINES (1 of 2)] Future Scheduled 1985 SHINGLES VACCINES ([address] [facility] 00:00:00 of 2) [code = Medical Center SHINGLES VACCINES (1 of 2)] Future Scheduled 1985 SHINGLES VACCINES ([address] [facility] 00:00:00 of 2) [code = Medical Center SHINGLES VACCINES (1 of 2)] Future Scheduled 1985 SHINGLES VACCINES ([address] [facility] 00:00:00 of 2) [code = Medical Center SHINGLES VACCINES (1 of 2)] Future Scheduled 1985 SHINGLES VACCINES ([address] [facility] 00:00:00 of 2) [code = Medical Center SHINGLES VACCINES (1 of 2)] Future Scheduled 1985 SHINGLES VACCINES ([address] [facility] 00:00:00 of 2) [code = Medical Center SHINGLES VACCINES (1 of 2)] Future Scheduled 1985 SHINGLES VACCINES ([address] [facility] 00:00:00 of 2) [code = Medical Center SHINGLES VACCINES (1 of 2)] Future Scheduled 1985 SHINGLES VACCINES ([address] [facility] 00:00:00 of 2) [code = Medical Center SHINGLES VACCINES (1 of 2)] Future Scheduled 1985 SHINGLES VACCINES ([address] [facility] 00:00:00 of 2) [code = Medical Center SHINGLES VACCINES (1 of 2)] Future Scheduled 1985 SHINGLES VACCINES ([address] [facility] 00:00:00 of 2) [code = Medical Center SHINGLES VACCINES (1 of 2)] Future Scheduled 1985 SHINGLES VACCINES ([address] [facility] 00:00:00 of 2) [code = Medical Center SHINGLES VACCINES (1 of 2)] Future Scheduled 1985 SHINGLES VACCINES ([address] [facility] 00:00:00 of 2) [code = Medical Center SHINGLES VACCINES (1 of 2)] Future Scheduled 1985 SHINGLES VACCINES ([address] [facility] 00:00:00 of 2) [code = Medical Center SHINGLES VACCINES (1 of 2)] Future Scheduled 1985 SHINGLES VACCINES ([address] [facility] 00:00:00 of 2) [code = Medical Center SHINGLES VACCINES (1 of 2)] Future Scheduled 1985 SHINGLES VACCINES ([address] [facility] 00:00:00 of 2) [code = Medical Center SHINGLES VACCINES (1 of 2)] Future Scheduled 1985 SHINGLES VACCINES ([address] [facility] 00:00:00 of 2) [code = Medical Center SHINGLES VACCINES (1 of 2)] Future Scheduled 1985 SHINGLES VACCINES ([address] [facility] 00:00:00 of 2) [code = Medical Center SHINGLES VACCINES (1 of 2)] Future Scheduled 1985 SHINGLES VACCINES ([address] [facility] 00:00:00 of 2) [code = Medical Center SHINGLES VACCINES (1 of 2)] Future Scheduled 1985 SHINGLES VACCINES ([address] [facility] 00:00:00 of 2) [code = Medical Center SHINGLES VACCINES (1 of 2)] Future Scheduled 1985 SHINGLES VACCINES ([address] [facility] 00:00:00 of 2) [code = Medical Center SHINGLES VACCINES (1 of 2)] Future Scheduled 1985 SHINGLES VACCINES ([address] [facility] 00:00:00 of 2) [code = Medical Center SHINGLES VACCINES (1 of 2)] Future Scheduled 1985 SHINGLES VACCINES ([address] [facility] 00:00:00 of 2) [code = Medical Center SHINGLES VACCINES (1 of 2)] Future Scheduled 1985 SHINGLES VACCINES ([address] [facility] 00:00:00 of 2) [code = Medical Center SHINGLES VACCINES (1 of 2)] Future Scheduled 1985 SHINGLES VACCINES ([address] [facility] 00:00:00 of 2) [code = Medical Center SHINGLES VACCINES (1 of 2)] Future Scheduled 1985 SHINGLES VACCINES ([address] [facility] 00:00:00 of 2) [code = Medical Center SHINGLES VACCINES (1 of 2)] Future Scheduled 1985 SHINGLES VACCINES ([address] [facility] 00:00:00 of 2) [code = Medical Center SHINGLES VACCINES (1 of 2)] Future Scheduled 1985 SHINGLES VACCINES ([address] [facility] 00:00:00 of 2) [code = Medical Center SHINGLES VACCINES (1 of 2)] Future Scheduled 1985 SHINGLES VACCINES ([address] [facility] 00:00:00 of 2) [code = Medical Center SHINGLES VACCINES (1 of 2)] Future Scheduled 1985 SHINGLES VACCINES ([address] [facility] 00:00:00 of 2) [code = Medical Center SHINGLES VACCINES (1 of 2)] Future Scheduled 1985 SHINGLES VACCINES ([address] [facility] 00:00:00 of 2) [code = Medical Center SHINGLES VACCINES (1 of 2)] Future Scheduled 1985 SHINGLES VACCINES ([address] [facility] 00:00:00 of 2) [code = Medical Center SHINGLES VACCINES (1 of 2)] Future Scheduled 1985 SHINGLES VACCINES ([address] [facility] 00:00:00 of 2) [code = Medical Center SHINGLES VACCINES (1 of 2)] Future Scheduled 1985 SHINGLES VACCINES ([address] [facility] 00:00:00 of 2) [code = Medical Center SHINGLES VACCINES (1 of 2)] Future Scheduled 1985 SHINGLES VACCINES ([address] [facility] 00:00:00 of 2) [code = Medical Center SHINGLES VACCINES (1 of 2)] Future Scheduled 1954 DTAP/TDAP/TD [facility] VACCINES (1 - Tdap) Medical Center [code = DTAP/TDAP/TD VACCINES (1 - Tdap)] Future Scheduled 1954 DTAP/TDAP/TD [facility] VACCINES (1 - Tdap) Medical Center [code = DTAP/TDAP/TD VACCINES (1 - Tdap)] Future Scheduled 1954 DTAP/TDAP/TD [facility] 00:00:00 VACCINES (1 - Tdap) Medical Center [code = DTAP/TDAP/TD VACCINES (1 - Tdap)] Future Scheduled 1954 DTAP/TDAP/TD [facility] 00:00:00 VACCINES (1 - Tdap) [facility] Center [code = DTAP/TDAP/TD VACCINES (1 - Tdap)] Future Scheduled 1954 DTAP/TDAP/TD [facility] 00:00:00 VACCINES (1 - Tdap) Medical Center [code = DTAP/TDAP/TD VACCINES (1 - Tdap)] Future Scheduled 1954 DTAP/TDAP/TD [facility] 00:00:00 VACCINES (1 - Tdap) Medical Center [code = DTAP/TDAP/TD VACCINES (1 - Tdap)] Future Scheduled 1954 DTAP/TDAP/TD [facility] 00:00:00 VACCINES (1 - Tdap) Medical Center [code = DTAP/TDAP/TD VACCINES (1 - Tdap)] Future Scheduled 1954 DTAP/TDAP/TD [facility] 00:00:00 VACCINES (1 - Tdap) Medical Center [code = DTAP/TDAP/TD VACCINES (1 - Tdap)] Future Scheduled 1954 DTAP/TDAP/TD [facility] 00:00:00 VACCINES (1 - Tdap) Medical Center [code = DTAP/TDAP/TD VACCINES (1 - Tdap)] Future Scheduled 1954 DTAP/TDAP/TD [facility] 00:00:00 VACCINES (1 - Tdap) Medical Center [code = DTAP/TDAP/TD VACCINES (1 - Tdap)] Future Scheduled 1954 DTAP/TDAP/TD [facility] 00:00:00 VACCINES (1 - Tdap) Medical Center [code = DTAP/TDAP/TD VACCINES (1 - Tdap)] Future Scheduled 1954 DTAP/TDAP/TD [facility] 00:00:00 VACCINES (1 - Tdap) [facility] Center [code = DTAP/TDAP/TD VACCINES (1 - Tdap)] Future Scheduled 1954 DTAP/TDAP/TD [facility] 00:00:00 VACCINES (1 - Tdap) [facility] Center [code = DTAP/TDAP/TD VACCINES (1 - Tdap)] Future Scheduled 1954 DTAP/TDAP/TD [facility] 00:00:00 VACCINES (1 - Tdap) [facility] Center [code = DTAP/TDAP/TD VACCINES (1 - Tdap)] Future Scheduled 1954 DTAP/TDAP/TD [facility] 00:00:00 VACCINES (1 - Tdap) [facility] Center [code = DTAP/TDAP/TD VACCINES (1 - Tdap)] Future Scheduled 1954 DTAP/TDAP/TD [facility] 00:00:00 VACCINES (1 - Tdap) [facility] Center [code = DTAP/TDAP/TD VACCINES (1 - Tdap)] Future Scheduled 1954 DTAP/TDAP/TD [facility] 00:00:00 VACCINES (1 - Tdap) [facility] Center [code = DTAP/TDAP/TD VACCINES (1 - Tdap)] Future Scheduled 1954 DTAP/TDAP/TD [facility] 00:00:00 VACCINES (1 - Tdap) [facility] Center [code = DTAP/TDAP/TD VACCINES (1 - Tdap)] Future Scheduled 1954 DTAP/TDAP/TD [facility] 00:00:00 VACCINES (1 - Tdap) [facility] Center [code = DTAP/TDAP/TD VACCINES (1 - Tdap)] Future Scheduled 1954 DTAP/TDAP/TD [facility] 00:00:00 VACCINES (1 - Tdap) [facility] Center [code = DTAP/TDAP/TD VACCINES (1 - Tdap)] Future Scheduled 1954 DTAP/TDAP/TD [facility] 00:00:00 VACCINES (1 - Tdap) [facility] Center [code = DTAP/TDAP/TD VACCINES (1 - Tdap)] Future Scheduled 1954 DTAP/TDAP/TD [facility] 00:00:00 VACCINES (1 - Tdap) [facility] Center [code = DTAP/TDAP/TD VACCINES (1 - Tdap)] Future Scheduled 1954 DTAP/TDAP/TD [facility] 00:00:00 VACCINES (1 - Tdap) [facility] [code = DTAP/TDAP/TD VACCINES (1 - Tdap)] Future Scheduled 1954 DTAP/TDAP/TD [facility] 00:00:00 VACCINES (1 - Tdap) [facility] Center [code = DTAP/TDAP/TD VACCINES (1 - Tdap)] Future Scheduled 1954 DTAP/TDAP/TD [facility] 00:00:00 VACCINES (1 - Tdap) [facility] [code = DTAP/TDAP/TD VACCINES (1 - Tdap)] Future Scheduled 1954 DTAP/TDAP/TD [facility] 00:00:00 VACCINES (1 - Tdap) [facility] [code = DTAP/TDAP/TD VACCINES (1 - Tdap)] Future Scheduled 1954 DTAP/TDAP/TD [facility] 00:00:00 VACCINES (1 - Tdap) [facility] Center [code = DTAP/TDAP/TD VACCINES (1 - Tdap)] Future Scheduled 1954 DTAP/TDAP/TD [facility] 00:00:00 VACCINES (1 - Tdap) [facility] [code = DTAP/TDAP/TD VACCINES (1 - Tdap)] Future Scheduled 1954 DTAP/TDAP/TD [facility] 00:00:00 VACCINES (1 - Tdap) [facility] [code = DTAP/TDAP/TD VACCINES (1 - Tdap)] Future Scheduled 1954 DTAP/TDAP/TD [facility] 00:00:00 VACCINES (1 - Tdap) [facility] [code = DTAP/TDAP/TD VACCINES (1 - Tdap)] Future Scheduled 1954 DTAP/TDAP/TD [facility] 00:00:00 VACCINES (1 - Tdap) [facility] [code = DTAP/TDAP/TD VACCINES (1 - Tdap)] Future Scheduled 1954 DTAP/TDAP/TD [facility] 00:00:00 VACCINES (1 - Tdap) [facility] [code = DTAP/TDAP/TD VACCINES (1 - Tdap)] Future Scheduled 1954 DTAP/TDAP/TD [facility] 00:00:00 VACCINES (1 - Tdap) [facility] [code = DTAP/TDAP/TD VACCINES (1 - Tdap)] Future Scheduled 1954 DTAP/TDAP/TD [facility] 00:00:00 VACCINES (1 - Tdap) [facility] Center [code = DTAP/TDAP/TD VACCINES (1 - Tdap)] Future Scheduled 1954 DTAP/TDAP/TD [facility] 00:00:00 VACCINES (1 - Tdap) [facility] Center [code = DTAP/TDAP/TD VACCINES (1 - Tdap)] Future Scheduled 1954 DTAP/TDAP/TD [facility] 00:00:00 VACCINES (1 - Tdap) [facility] Center [code = DTAP/TDAP/TD VACCINES (1 - Tdap)] Future Scheduled 1954 DTAP/TDAP/TD [facility] 00:00:00 VACCINES (1 - Tdap) [facility] Center [code = DTAP/TDAP/TD VACCINES (1 - Tdap)] Future Scheduled 1954 DTAP/TDAP/TD [facility] 00:00:00 VACCINES (1 - Tdap) [facility] Center [code = DTAP/TDAP/TD VACCINES (1 - Tdap)] Future Scheduled 1954 DTAP/TDAP/TD [facility] 00:00:00 VACCINES (1 - Tdap) [facility] Center [code = DTAP/TDAP/TD VACCINES (1 - Tdap)] Future Scheduled 1954 DTAP/TDAP/TD [facility] 00:00:00 VACCINES (1 - Tdap) [facility] Center [code = DTAP/TDAP/TD VACCINES (1 - Tdap)] Future Scheduled 1954 DTAP/TDAP/TD [facility] 00:00:00 VACCINES (1 - Tdap) [facility] Center [code = DTAP/TDAP/TD VACCINES (1 - Tdap)] Future Scheduled 1954 DTAP/TDAP/TD [facility] 00:00:00 VACCINES (1 - Tdap) [facility] Center [code = DTAP/TDAP/TD VACCINES (1 - Tdap)] Future Scheduled 1954 DTAP/TDAP/TD [facility] 00:00:00 VACCINES (1 - Tdap) [facility] Center [code = DTAP/TDAP/TD VACCINES (1 - Tdap)] Future Scheduled 1954 DTAP/TDAP/TD [facility] 00:00:00 VACCINES (1 - Tdap) [facility] Center [code = DTAP/TDAP/TD VACCINES (1 - Tdap)] Future Scheduled 1954 DTAP/TDAP/TD [facility] 00:00:00 VACCINES (1 - Tdap) [facility] Center [code = DTAP/TDAP/TD VACCINES (1 - Tdap)] Future Scheduled 1954 DTAP/TDAP/TD [facility] 00:00:00 VACCINES (1 - Tdap) [facility] [code = DTAP/TDAP/TD VACCINES (1 - Tdap)] Future Scheduled 1954 DTAP/TDAP/TD [facility] 00:00:00 VACCINES (1 - Tdap) [facility] Center [code = DTAP/TDAP/TD VACCINES (1 - Tdap)] Future Scheduled [address] [facility] 00:00:00 [facility] and [facility] Cente r Screening (12+) [code = Tobacco Cessation Counseling and Screening (12+)] Future Scheduled [address] [facility] 00:00:00 [facility]ing and [facility] Cent[facility] r Screening (12+) [code = Tobacco Cessation Counseling and Screening (12+)] Future Scheduled [address] [facility] 00:00:00 Counseling and Medical Cent[facility] r Screening (12+) [code = Tobacco Cessation Counseling and Screening (12+)] Future Scheduled [address] [facility] 00:00:00 Counseling and Medical Cente r Screening (12+) [code = Tobacco Cessation Counseling and Screening (12+)] Future Scheduled [address] [facility] 00:00:00 Counseling and Medical Cent[facility] r Screening (12+) [code = Tobacco Cessation Counseling and Screening (12+)] Future Scheduled [address] [facility] 00:00:00 Counseling and Medical Cent[facility] r Screening (12+) [code = Tobacco Cessation Counseling and Screening (12+)] Future Scheduled [address] [facility] 00:00:00 [facility]ing and Medical Cent[facility] r Screening (12+) [code = Tobacco Cessation Counseling and Screening (12+)] Future Scheduled [address] [facility] 00:00:00 [facility]ing and [facility] Cent[facility] r Screening (12+) [code = Tobacco Cessation Counseling and Screening (12+)] Future Scheduled [address] [facility] 00:00:00 [facility]ing and [facility] Cent[facility] r Screening (12+) [code = Tobacco Cessation Counseling and Screening (12+)] Future Scheduled [address] [facility] 00:00:00 [facility]ing and [facility] Cent[facility] r Screening (12+) [code = Tobacco Cessation Counseling and Screening (12+)] Future Scheduled [address] [facility] 00:00:00 Counseling and Medical Cent[facility] r Screening (12+) [code = Tobacco Cessation Counseling and Screening (12+)] Future Scheduled [address] [facility] 00:00:00 [facility]ing and [facility] Cent[facility] r Screening (12+) [code = Tobacco Cessation Counseling and Screening (12+)] Future Scheduled [address] [facility] 00:00:00 [facility]ing and Medical Cent[facility] r Screening (12+) [code = Tobacco Cessation Counseling and Screening (12+)] Future Scheduled [address] [facility] 00:00:00 [facility]ing and [facility] Cent[facility] r Screening (12+) [code = Tobacco Cessation Counseling and Screening (12+)] Future Scheduled [address] [facility] 00:00:00 [facility]ing and Medical Cent[facility] r Screening (12+) [code = Tobacco Cessation Counseling and Screening (12+)] Future Scheduled [address] [facility] 00:00:00 [facility]ing and [facility] Cent[facility] Screening (12+) [code = Tobacco Cessation Counseling and Screening (12+)] Future Scheduled [address] [facility] 00:00:00 Counseling and Medical Cent[facility] r Screening (12+) [code = Tobacco Cessation Counseling and Screening (12+)] Future Scheduled [address] [facility] 00:00:00 Counseling and Medical Cent[facility] r Screening (12+) [code = Tobacco Cessation Counseling and Screening (12+)] Future Scheduled [address] [facility] 00:00:00 Counseling and Medical Cent[facility] r Screening (12+) [code = Tobacco Cessation Counseling and Screening (12+)] Future Scheduled [address] [facility] 00:00:00 Counseling and Medical Cent[facility] r Screening (12+) [code = Tobacco Cessation Counseling and Screening (12+)] Future Scheduled [address] [facility] 00:00:00 Counseling and Medical Cent[facility] Screening (12+) [code = Tobacco Cessation Counseling and Screening (12+)] Future Scheduled [address] [facility] 00:00:00 Counseling and Medical Cent[facility] r Screening (12+) [code = Tobacco Cessation Counseling and Screening (12+)] Future Scheduled [address] [facility] 00:00:00 Counseling and Medical Cent[facility] r Screening (12+) [code = Tobacco Cessation Counseling and Screening (12+)] Future Scheduled [address] [facility] 00:00:00 Counseling and Medical Cent[facility] r Screening (12+) [code = Tobacco Cessation Counseling and Screening (12+)] Future Scheduled [address] [facility] 00:00:00 Counseling and Medical Cent[facility] r Screening (12+) [code = Tobacco Cessation Counseling and Screening (12+)] Future Scheduled [address] [facility] 00:00:00 Counseling and Medical Cent[facility] r Screening (12+) [code = Tobacco Cessation Counseling and Screening (12+)] Future Scheduled [address] [facility] 00:00:00 Counseling and Medical Cent[facility] Screening (12+) [code = Tobacco Cessation Counseling and Screening (12+)] Future Scheduled [address] [facility] 00:00:00 Counseling and Medical Cent[facility] r Screening (12+) [code = Tobacco Cessation Counseling and Screening (12+)] Future Scheduled [address] [facility] 00:00:00 Counseling and [facility] Cent[facility] r Screening (12+) [code = Tobacco Cessation Counseling and Screening (12+)] Future Scheduled [address] [facility] 00:00:00 Counseling and Medical Cent[facility] r Screening (12+) [code = Tobacco Cessation Counseling and Screening (12+)] Future Scheduled [address] [facility] 00:00:00 Counseling and Medical Cent[facility] r Screening (12+) [code = Tobacco Cessation Counseling and Screening (12+)] Future Scheduled [address] [facility] 00:00:00 Counseling and Medical Cent[facility] r Screening (12+) [code = Tobacco Cessation Counseling and Screening (12+)] Future Scheduled [address] [facility] 00:00:00 Counseling and [facility] Cent[facility] r Screening (12+) [code = Tobacco Cessation Counseling and Screening (12+)] Future Scheduled [address] [facility] 00:00:00 Counseling and [facility] Cent[facility] Screening (12+) [code = Tobacco Cessation Counseling and Screening (12+)] Future Scheduled [address] [facility] 00:00:00 [facility]ing and Medical Cent[facility] r Screening (12+) [code = Tobacco Cessation Counseling and Screening (12+)] Future Scheduled 1941 PNEUMOCOCCAL 65+ [facility] 00:00:00 (1 - PCV) [code = Medical Ce nter PNEUMOCOCCAL 65+ YRS (1 - PCV)] Future Scheduled [address] PNE[address]OCCAL 65+ [facility] 00:00:00 (1 - PCV) [code = Medical Ce nter PNEUMOCOCCAL 65+ YRS (1 - PCV)] Future Scheduled [address] PNEUMOCOCCAL 65+ YRS [facility] 00:00:00 (1 - PCV) [code = Medical Ce nter PNEUMOCOCCAL 65+ YRS (1 - PCV)] Future Scheduled [address] PNEUMOCOCCAL 65+ YRS [facility] 00:00:00 (1 - PCV) [code = Medical Ce nter PNEUMOCOCCAL 65+ YRS (1 - PCV)] Future Scheduled [address] PNEUMOCOCCAL 65+ YRS [facility] 00:00:00 (1 - PCV) [code = Medical Ce nter PNEUMOCOCCAL 65+ YRS (1 - PCV)] Future Scheduled [address] PNE[address]OCCAL 65+ YRS [facility] 00:00:00 (1 - PCV) [code = Medical Ce nter PNEUMOCOCCAL 65+ YRS (1 - PCV)] Future Scheduled [address] PNE[address]OCCAL 65+ YRS [facility] 00:00:00 (1 - PCV) [code = Medical Ce nter PNEUMOCOCCAL 65+ YRS (1 - PCV)] Future Scheduled [address]NE[address]CCAL 65+ YRS [facility] 00:00:00 (1 - PCV) [code = Medical Ce nter PNEUMOCOCCAL 65+ YRS (1 - PCV)] Future Scheduled [address]NE[address]CCAL 65+ YRS [facility] 00:00:00 (1 - PCV) [code = Medical Ce nter PNEUMOCOCCAL 65+ YRS (1 - PCV)] Future Scheduled [address] COVID-[address] [facility] 00:00:00 (#1) [code = Medical Center COVID-19 VACCINE (#1)] Future Scheduled 1935 COVID-[address] [facility] 00:00:00 (#1) [code = Medical Center COVID-19 VACCINE (#1)] Future Scheduled 1935 COVID-[address] [facility] 00:00:00 (#1) [code = Medical Center COVID-19 VACCINE (#1)] Future Scheduled 1935 COVID-[address] [facility] 00:00:00 (#1) [code = Medical Center COVID-19 VACCINE (#1)] Future Scheduled 1935 COVID-[address] [facility] 00:00:00 (#1) [code = Medical Center COVID-19 VACCINE (#1)] Future Scheduled 1935 COVID-[address] [facility] 00:00:00 (#1) [code = [facility] COVID-19 VACCINE (#1)] Future Scheduled 1935 COVID-[address] [facility] 00:00:00 (#1) [code = [facility] COVID-19 VACCINE (#1)] Future Scheduled 1935 COVID-[address] [facility] 00:00:00 (#1) [code = [facility] COVID-19 VACCINE (#1)] Future Scheduled 1935 COVID-[address] [facility] 00:00:00 (#1) [code = [facility] COVID-19 VACCINE (#1)] Future Scheduled 1935 COVID-[address] [facility] 00:00:00 (#1) [code = [facility] COVID-19 VACCINE (#1)] Future Scheduled 1935 COVID-[address] [facility] 00:00:00 (#1) [facility]code = [facility] COVID-19 VACCINE (#1)] Future Scheduled 1935 COVID-[address] [facility] 00:00:00 (#1) [code = Medical Center COVID-19 VACCINE (#1)] Future Scheduled 1935 COVID-[address] [facility] 00:00:00 (#1) [code = Medical Center COVID-19 VACCINE (#1)] Future Scheduled 1935 COVID-[address] [facility] 00:00:00 (#1) [code = Medical Center COVID-19 VACCINE (#1)] Future Scheduled 1935 COVID-[address] [facility] 00:00:00 (#1) [code = Medical Center COVID-19 VACCINE (#1)] Future Scheduled 1935 COVID-[address] [facility] 00:00:00 (#1) [code = Medical Center COVID-19 VACCINE (#1)] Future Scheduled 1935 COVID-[address] [facility] 00:00:00 (#1) [code = Medical Center COVID-19 VACCINE (#1)] Future Scheduled 1935 COVID-[address] [facility] 00:00:00 (#1) [code = Medical Center COVID-19 VACCINE (#1)] Future Scheduled 1935 COVID-[address] [facility] 00:00:00 (#1) [code = Medical Center COVID-19 VACCINE (#1)] Future Scheduled 1935 COVID-[address] [facility] 00:00:00 (#1) [code = Medical Center COVID-19 VACCINE (#1)] Future Scheduled 1935 COVID-[address] [facility] 00:00:00 (#1) [code = Medical Center COVID-19 VACCINE (#1)] Future Scheduled 1935 COVID-[address] [facility] 00:00:00 (#1) [code = Medical Center COVID-19 VACCINE (#1)] Future Scheduled 1935 COVID-[address] [facility] 00:00:00 (#1) [code = Medical Center COVID-19 VACCINE (#1)] Future Scheduled 1935 COVID-[address] [facility] 00:00:00 (#1) [code = Medical Center COVID-19 VACCINE (#1)] Future Scheduled 1935 COVID-[address] [facility] 00:00:00 (#1) [code = Medical Center COVID-19 VACCINE (#1)] Future Scheduled 1935 COVID-[address] [facility] 00:00:00 (#1) [code = Medical Center COVID-19 VACCINE (#1)] Future Scheduled 1935 COVID-[address] [facility] 00:00:00 (#1) [code = Medical Center COVID-19 VACCINE (#1)] Future Scheduled 1935 COVID-[address] [facility] 00:00:00 (#1) [code = Medical Center COVID-19 VACCINE (#1)] Future Scheduled 1935 COVID-[address] [facility] 00:00:00 (#1) [code = Medical Center COVID-19 VACCINE (#1)] Future Scheduled 1935 COVID-[address] [facility] 00:00:00 (#1) [code = Medical Center COVID-19 VACCINE (#1)] Future Scheduled 1935 COVID-[address] [facility] 00:00:00 (#1) [code = Medical Center COVID-19 VACCINE (#1)] Future Scheduled 1935 COVID-[address] [facility] 00:00:00 (#1) [code = Medical Center COVID-19 VACCINE (#1)] Future Scheduled 1935 COVID-[address] [facility] 00:00:00 (#1) [code = Medical Center COVID-19 VACCINE (#1)] Future Scheduled 1935 COVID-[address] [facility] 00:00:00 (#1) [code = Medical Center COVID-19 VACCINE (#1)] Future Scheduled 1935 COVID-[address] [facility] 00:00:00 (#1) [code = Medical Center COVID-19 VACCINE (#1)] Future Scheduled 1935 COVID-[address] [facility] 00:00:00 (#1) [code = Medical Center COVID-19 VACCINE (#1)] Future Scheduled 1935 COVID-[address] [facility] 00:00:00 (#1) [code = Medical Center COVID-19 VACCINE (#1)] Future Scheduled 1935 COVID-[address] [facility] 00:00:00 (#1) [code = Medical Center COVID-19 VACCINE (#1)] Future Scheduled 1935 COVID-[address] [facility] 00:00:00 (#1) [code = Medical Center COVID-19 VACCINE (#1)] Future Scheduled 1935 COVID-[address] [facility] 00:00:00 (#1) [code = Medical Center COVID-19 VACCINE (#1)] Future Scheduled 1935 COVID-[address] [facility] 00:00:00 (#1) [code = Medical Center COVID-19 VACCINE (#1)] Future Scheduled 1935 COVID-[address] [facility] 00:00:00 (#1) [code = Medical Center COVID-19 VACCINE (#1)] Future Scheduled 1935 COVID-[address] [facility] 00:00:00 (#1) [code = Medical Center COVID-19 VACCINE (#1)] Future Scheduled 1935 COVID-[address] [facility] 00:00:00 (#1) [code = Medical Center COVID-19 VACCINE (#1)] Future Scheduled 1935 COVID-[address] [facility] 00:00:00 (#1) [code = Medical Center COVID-19 VACCINE (#1)] Future Scheduled 1935 COVID-[address] [facility] 00:00:00 (#1) [code = Medical Center COVID-19 VACCINE (#1)] Future Scheduled 1935 COVID-[address] [facility] 00:00:00 (#1) [code = Medical Center COVID-19 VACCINE (#1)] Encounters Start End Encounter Admission Attending Care Care Encounter Source Date/Time Date/Time Type Type Clinicians Facility Department ID 2022-08-21 Outpatient [facility] [id number] SLE 21:50:53 2022-06-20 Outpatient [facility] [id number] [place] 11:40:[id number] [facility] 2022-06-16 Outpatient [facility] [id number] [place] 17:07:[id number] [facility] 2022-06-15 Outpatient [facility] [id number] [place] 16:25:[id number] [facility] 2022-05-18 Inpatient EM Indy, HCACL INTE.02 [id number] [facility] 14:24:00 Frank [id number] [facility] 2022-02-08 Outpatient STLMLC STLMLC [id number] Common 16:02:01 [facility] 2021-12-15 Outpatient STLMLC STLMLC [id number] Common 12:01:20 [id number] [facility] 2021-12-15 Outpatient STLMLC STLMLC [id number] Common 11:54:02 [id number] [facility] 2023-01-03 2023-01-03 Outpatient WYCLAUDIA, [facility] [id number] [facility] 00:00:00 00:00:00 ROMIE Jaffe e of Medicin e 2022-12-19 2022-12-19 Outpatient FLO, [facility] [id number] [facility] 00:00:00 00:00:00 ROMIE Jaffe e of Medicin e 2022-12-06 2022-12-06 Outpatient [facility] [id number] [facility] 00:00:00 00:00:00 [facility] 2022-12-06 2022-12-06 Outpatient [facility] [id number] [facility] 00:00:00 00:00:00 [facility] 2022-11-22 2022-11-22 [facility] [id number] 09:13:02 23:59:00 Encounter [facility] 2022-11-22 2022-11-22 [facility] [id number] 09:13:02 23:59:00 Encounter [facility] 2022-11-22 2022-11-22 Outpatient MARKOS CRUZ SLE SLE [id number] SLEH 09:13:02 23:59:00 DONIS 2022-11-22 2022-11-22 Outpatient MARKOS CRUZ SLEH SLE [id number] SLEH 09:12:38 09:12:38 DONIS 2022-11-22 2022-11-22 [facility] [id number] [id number] 09:12:38 09:12:38 Encounter Donis [facility] 2022-11-22 2022-11-22 [facility] [id number] 09:12:38 09:12:38 Encounter Donis [facility] 2022-11-15 2022-11-15 Outpatient [facility] [id number] [facility] 11:21:35 23:59:00 [facility] 2022-11-15 2022-11-15 Office ANTHONY [facility] [id number] [facility] 10:18:30 15:34:27 Visit DONIS Lennon 350.1.13.21 Co llbaltae 0.2.7.2.686 of [id number] Medi rafael 520 e 2022-11-15 2022-11-15 Outpatient [facility] [id number] [facility] 00:00:00 00:00:00 [facility] 2022-11-15 2022-11-15 [facility] [id number] 00:00:00 00:00:00 Only [facility] 2022-11-15 2022-11-15 [facility] [id number] 00:00:00 00:00:00 Only [facility] 2022-11-02 2022-11-02 [facility] [id number] 07:58:00 13:01:00 Encounter [facility] 2022-11-02 2022-11-02 [facility] [id number] 07:58:00 13:01:00 Encounter [facility] 2022-11-02 2022-11-02 Outpatient EL TERESA, SLE Surgery [id number] SLE 07:58:00 13:01:00 [facility] 2022-11-02 2022-11-02 Surgery Safi, [facility] [id number] 09:15:00 10:51:00 [facility] 2022-11-02 2022-11-02 Surgery Safi, [facility] [id number] 09:15:00 10:51:00 [facility] 2022-11-02 2022-11-02 Anesthesia [facility] [id number] 09:10:00 09:10:00 Event [facility] 2022-11-02 2022-11-02 Anesthesia [facility] [id number] 09:10:00 09:10:00 Event [facility] 2022-11-02 2022-11-02 Travel [facility] [id number] [facility] 00:00:00 00:00:00 [facility] 2022-11-02 2022-11-02 Travel [facility] [id number] [facility] 00:[facility]:00 00:00:00 [facility] 2022-10-26 2022-10-26 Outpatient ANTONIETTA [facility] [id number] [facility] 00:00:00 00:00:00 MIHAIL [facility] 2022-10-25 2022-10-25 Outpatient [facility] [id number] [facility] 09:16:27 23:59:00 [facility] 2022-10-25 2022-10-25 Office ANTHONY [facility] [id number] [facility] 07:46:25 10:11:24 Visit DONIS Lennon 350.1.13.21 Co srinivas 0.2.7.2.686 of [id number] Medi rafael 520 e 2022-10-25 2022-10-25 [id number] [facility] 00:00:00 00:00:00 [facility] 2022-10-18 2022-10-19 Office Teresa, BCM [id number] [id number] [facility] 14:30:00 08:13:27 Visit Jordan AMBULATOR 350.1.13.21 College Y 0.2.7.2.686 of [id number] Medi rafael 380 e 2022-10-18 2022-10-18 Office Flo, BC 1.2.840.114 [id number] [facility] 08:00:00 08:34:47 Visit Romie Lovett AMBULATOR 350.1.13.21 College Y 0.2.7.2.686 of [id number] Medi rafael 375 e 2022-10-11 2022-10-11 Outpatient EL SLEH SLE [id number] [facility]H 11:59:07 11:59:07 2022-10-11 2022-10-11 Outpatient EL SLEH SLEH [id number] [facility] 11:53:04 11:53:04 2022-10-07 2022-10-10 [facility] [id number] [facility] 20:46:00 17:12:00 Encounter Minal Joy [facility] 2022-10-07 2022-10-10 [facility] [id number] [facility] 20:46:00 17:12:00 Encounter Minal Joy [facility] 2022-10-07 2022-10-10 Inpatient ER BENITA Man [facility] Med [id number] SLE 20:46:00 17:12:00 MINAL 2022-10-09 2022-10-09 Outpatient [facility] [id number] [facility] 00:00:00 23:59:00 [facility] 2022-10-08 2022-10-08 Travel [facility] [id number] [facility] 00:00:00 00:00:00 [facility] 2022-10-08 2022-10-08 Travel [facility] [id number] [facility] 00:00:00 00:00:00 [facility] 2022-09-19 2022-09-28 Hospital ER Jimy Pepper [facility] [id number] 20:04:00 18:00:00 Encounter Maria Aparicio, [facility], Minal Jiang, Carolann Olivas 2022-09-19 2022-09-28 [facility] Jimy Pepper [facility] [id number] 20:04:00 18:00:00 Encounter Maria Aparicio marco antonio Carey, [facility], Minal Jiang, Carolann Olivas 2022-09-19 2022-09-28 Inpatient ER [facility] Cardiac ICU [id number] [facility] 20:04:00 18:00:00 [facility] 2022-09-27 2022-09-27 Anesthesia Creo, [facility] [id number] 13:30:00 17:09:00 Event [facility] 2022-09-27 2022-09-27 Anesthesia Creo, [facility] [id number] 13:30:00 17:09:00 Event [facility] 2022-09-27 2022-09-27 Surgery Chelu, [facility] [id number] 14:45:00 16:38:00 [facility] 2022-09-27 2022-09-27 Surgery Chelu, [facility] [id number] 14:45:00 16:38:00 [facility] 2022-09-21 2022-09-21 Orders [facility] [id number] 00:00:00 00:00:00 Only [facility] 2022-09-21 2022-09-21 Orders [facility] [id number] 00:00:00 00:00:00 Only [facility] 2022-09-20 2022-09-20 Outpatient [facility] [id number] [facility] 00:00:00 23:59:00 [facility] 2022-09-20 2022-09-20 Travel [facility] [id number] [facility] 00:00:00 00:00:00 [facility] 2022-09-20 2022-09-20 Travel [facility] [id number] [facility] 00:00:00 00:00:00 [facility] 2022-09-19 2022-09-19 Outpatient [facility] [id number] [facility] 20:04:00 23:59:00 [facility] 2022-08-30 2022-08-30 Outpatient [facility] [id number] [facility] 12:46:22 23:59:00 [facility] 2022-08-30 2022-08-30 Office Flo, RYAN 1.2.840.114 [id number] [facility] 08:20:00 09:15:54 Visit Romie Lovett AMBULATOR 350.1.13.21 College Y 0.2.7.2.686 [id number] Medi rafael 375 e 2022-08-25 2022-08-25 Emergency ER SLEH Emergency [id number] SLE 09:15:00 23:00:00 2022-08-25 2022-08-25 Emergency [facility] [id number] [facility] 09:15:00 23:00:00 [facility] 2022-08-25 2022-08-25 Emergency [facility] [id number] 09:15:00 23:00:00 [facility] 2022-08-25 2022-08-25 Infusion Anthony [facility] [id number] 08:30:00 14:30:00 [facility] 2022-08-25 2022-08-25 Vamshi Cruz [facility] [id number] 08:30:00 14:30:00 [facility] 2022-08-24 2022-08-24 Outpatient [facility] [id number] [facility] 00:00:00 23:59:00 Ld hernandez of Medicin e 2022-08-24 2022-08-24 [facility] [id number] 11:30:00 11:45:00 [facility] 2022-08-24 2022-08-24 [facility] [id number] 11:30:00 11:45:00 [facility] 2022-08-24 2022-08-24 Office ANTHONY [facility] [id number] [facility] 07:03:08 10:10:49 Visit DONIS Lennon 350.1.13.21 Co llege 0.2.7.2.686 of [id number] [facility] rafael 520 e 2022-10-10 2022-08-22 Outpatient ANTHONY, SLE SLEH [id number] [facility] 10:03:34 23:59:00 DONIS 2022-08-22 2022-08-22 [facility] [id number] 11:00:00 23:59:00 Encounter Donis [facility] 2022-08-22 2022-08-22 [facility] [id number] 11:00:00 11:00:00 Encounter Donis [facility] 2022-08-22 2022-08-22 Surgery Virtual, [facility] [id number] 08:52:00 09:31:00 [facility] 2022-08-22 2022-08-22 Surgery Virtual, [facility] [id number] 08:52:00 09:31:00 [facility] 2022-08-22 2022-08-22 [facility] [id number] 08:52:00 08:52:00 Encounter [facility] 2022-08-22 2022-08-22 [facility] [id number] 08:52:00 08:52:00 Encounter [facility] 2022-08-18 2022-08-18 [facility] [id number] 09:33:59 23:59:00 Encounter [facility] 2022-08-18 2022-08-18 [facility] [id number] 09:33:59 23:59:00 Encounter [facility] 2022-08-18 2022-08-18 Outpatient MARKOS ANTHONY [facility] SLE [id number] SLEH 09:33:59 23:59:00 MARIANNA 2022-08-18 2022-08-18 [facility] [id number] 09:45:00 10:00:00 Only [facility] 2022-08-18 2022-08-18 Orders [facility] [id number] 09:45:00 10:00:00 Only [facility] 2022-08-18 2022-08-18 Outpatient [facility] SLE [id number] SLEH 09:45:07 09:45:07 2022-08-15 2022-08-15 [facility] [id number] [facility] 14:14:24 15:12:10 ISAIAS Jaffe e of Medicin e 2022-08-15 2022-08-15 Outpatient [facility] [id number] [facility] 11:34:29 11:34:29 Ld e of Medicin e 2022-08-15 2022-08-15 Outside [facility] [id number] 00:00:00 00:00:00 Orders [facility] 2022-08-15 2022-08-15 [facility] [id number] 00:00:00 00:00:00 Orders [facility] 2022-08-09 2022-08-09 Orders Anthony, [facility] [id number] 00:00:00 00:00:00 Only [facility] 2022-08-09 2022-08-09 Orders Anthony [facility] [id number] 00:00:00 00:00:00 Only [facility] 2022-08-03 2022-08-03 [facility] [id number] [facility] 16:03:45 23:59:00 Encounter 1, [facility] 2022-08-03 2022-08-03 [facility] [id number] [facility] 16:03:45 23:59:00 Encounter 1, [facility] Room [facility] 2022-08-03 2022-08-03 Outpatient MARKOS CRUZ, [facility] SLE [id number] SLE 16:03:45 23:59:00 DONIS 2022-08-03 2022-08-03 [facility] [id number] [facility] 16:01:08 16:02:00 Encounter 1, [facility] Room [facility] 2022-08-03 2022-08-03 [facility] [id number] [facility] 16:01:08 16:02:00 Encounter 1, [facility] Room [facility] 2022-08-03 2022-08-03 Outpatient MARKOS CRUZ, SLE SLE [id number] SLEH 16:01:08 16:02:00 DONIS 2022-08-03 2022-08-03 Outpatient ANTHONY, [facility] [id number] [facility] 13:15:55 15:15:43 DONIS Betancourt Medicin mary 2022-08-03 2022-08-03 Outside [facility], [facility] [id number] 00:00:00 00:00:00 Orders [facility] 2022-08-03 2022-08-03 Outside [facility], [facility] [id number] CHI 00:00:00 00:00:00 Orders Donis marco antonio [facility] 2022-07-13 2022-07-13 Outpatient [facility] [id number] MS 14:00:00 14:00:00 [facility] 2022-06-13 2022-06-17 Inpatient nullFlavo [facility] [id number] Memoria 00:20:04 22:00:00 r Blythe 00 l [facility] 2022-06-13 2022-06-17 Inpatient nullFlavo [facility] [id number] Memoria 00:20:04 22:00:00 r Blythe 00 [facility] 2022-06-13 2022-06-17 Inpatient E MUNROE, [facility] [address] [place] [address] 01:02:00 17:00:00 [facility] 2022-06-12 2022-06-17 Outpatient Munroe, MHSE MHSE [id number] 19:20:04 17:00:00 Chapis 00 2022-06-12 2022-06-12 Outpatient Ganatrabril, MHSE MHSE [id number] 19:20:04 19:20:04 [facility] 00 [facility] 2022-06-03 2022-06-03 Outpatient Canales_M DMG DMG [id number] -[id number] [facility] 07:17:00 07:17:00 0715 Medica l Group 2022-05-20 2022-05-26 Inpatient EM Ariella Shaffer HCACL INTE.02 [id number] [facility] 14:05:00 14:06:00 93 [facility] 2022-05-20 2022-05-26 Inpatient EM Indy, HCACL INTE.02 [id number] [facility] 14:05:00 14:06:00 Frank [id number] [facility] 2021-11-11 2021-11-11 Outpatient Canales_M DMG DMG [id number] [facility] 10:30:00 10:30:00 1223 Medica l Group 2021-05-17 2021-05-17 Outpatient Love-Mbayo VFP VFP [phone] [id number] 02:54:00 02:54:00 _A_AH 11618 Family Practic e 2021-02-22 2021-02-22 [facility] [id number] 11:38:00 11:38:00 0405 Medica l Group 2021-02-22 2021-02-22 Iliana ASHLYN MA - [id number] D evoted 00:00:00 00:00:00 Mary Sheltona l Hollins, Health Group MEDICAL CODING MANAGER: [id number] [facility] [address], [place] [address] , Ph. 2021-02-22 2021-02-22 Outpatient Hollins, BRAD BRAD [id number] 00:00:00 00:00:00 Iliana [id number] Mary [id number] 2021-02-19 2021-02-19 Outpatient [facility] [id number] [facility] 11:15:00 11:15:00 0402 Medica l Group 2020-10-06 2020-10-06 (IN/ASP) STLC STLC [id number] C ommon 00:00:00 00:00:00 INJ ASP [facility] - [facility] 2020-09-29 2020-09-29 (IN/ASP) STLMLC STLC [id number] C ommon 00:00:00 00:00:00 INJ ASP [facility] 2020-09-22 2020-09-22 [facility] [id number] C ommon 00:00:00 00:00:00 INJ ASP [facility] 2020-09-10 2020-09-10 OFFICE STLC STLC [id number] Co mmon 00:00:00 00:00:00 VISIT EST Spir it PT LEVEL 3 - [facility] 2020-05-19 2020-05-19 [facility] [id number] Common 08:30:00 08:30:00 t Bone Bone [facility] Spiri t and Joint [facility] 2020-04-30 2020-04-30 Outpatient Love-Mbayo P [facility] [id number] 11:59:00 11:59:00 _A_AH 42127 Family Practic e 2020-04-20 2020-04-20 Outpatient Cachorro [facility] [id number] 06:26:00 06:26:00 _A_AH 20601 Family Practic e 2020-03-30 2020-03-30 Outpatient Cachorro P [facility] [address] [place] [address] 02:45:00 02:45:00 _A_AH 09691 Family Practic e 2020-02-24 2020-02-24 Outpatient [facility] [id number] Common 14:30:00 14:30:00 t Bone Bone [facility] Spiri t and [facility] 2020-02-18 2020-02-18 Rachel [facility] [place] - [id number] V illage 00:00:00 00:00:00 [facility] Fam ryan munguia MEDICAL CODING MANAGER: Medical - Practi c [address] _[email or web address]_ e [facility], [address] [address], [place] [address] , Ph. 2020-01-29 2020-01-29 [facility] [id number] Common 14:19:00 14:19:00 t Bone Bone and Spiri t and Joint [facility] 2020-01-28 2020-01-28 [facility] 29 [id number] Common 10:45:00 10:45:00 t Bone Bone and Spiri t and Joint [facility] - [facility] 2020-01-08 2020-01-08 Outpatient C[place]orro [facility] [address] 07:20:00 07:20:00 _A_AH [id number] Family Practic e 2019-06-12 2019-06-12 [facility] [id number] Common 11:07:00 11:07:00 t Bone Bone and Spiri t and Joint [facility] - [facility] 2019-06-06 2019-06-06 [facility] [id number] Common 10:00:00 10:00:00 t Bone Bone and Spiri t and Joint Joint - [facility] 2019-05-20 2019-05-20 Outpatient Lynne Bhatt [id number] Common 09:30:00 09:30:00 t Bone Bone and Spiri t and Joint Joint - [facility] Results Test Description Test Time Test Comments Results Result [facility] e Comments CT, ABDOMEN Ovarian cancer, s/p 3 3 cycles of 12:54:00 chemotherapy, assess treatment [facility] - responseRelease to MEDICAL CENTERName: patient->ImmediateWh MINAL SLOAN chelsy [facility] / [facility] : 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 This exam was performed according to our departmental dose-optimization program, which includes automated exposure control, adjustment of the mA and/or kV according to patient size and/or use of interactive reconstruction technique. Both thyroid lobes are normal in appearance. Heart is enlarged. Great vessels are unremarkable. No adenopathy in the mediastinum or perihilar region. Trachea and mainstem bronchi are patent. A moderate size hiatal hernia is present. There is small to moderate bilateral pleural effusion. A pigtail chest tube is seen on the left. Subsegmental atelectasis is seen in the lingula, right mid, and both lower lobes. The rest of the lungs are clear. No nodular, mass lesion or airspace disease is present. Liver and spleen are normal in size. No focal lesion is seen in the liver or the spleen. Gallbladder is contracted. No gallstone or biliary dilatation is noted. Pancreas and adrenals are unremarkable. Both kidneys are normal in size and functioning. No hydronephrosis, hydroureter, or urolithiasis is noted. Diverticular disease is seen in the large bowel without diverticulitis. The small bowel is normal in caliber. Appendix is not visualized. Uterus is atrophic. The urinary bladder is contracted. Previously noted peritoneal/omental masses are not visualized on the current examination. Impression: 1. Bilateral pleural effusion with lingula, right mid, and both lower lobe subsegmental atelectasis.2. 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 Diverticulosis without diverticulitis. Signed: Paty Vuong [facility] Verified Date/Time: 11/22/2022 12:54:18 Reading Location: [facility] C013Y CT Body Reading Room , CHEST, WITH Ovarian cancer, s/p CONTRAST 3 3 cycles of 12:54:00 chemotherapy, assess treatment [facility] - responseRelease to MEDICAL CENTERName: patient->ImmediateWh MINAL SLOAN chelsy [facility] / [facility] : [facility] 1935 Sex: location is F preferred?->[place] FINAL REPORT CT of the Chest, abdomen and pelvis dated 11/22/2022 COMPARISON: August 03, 2022 Clinical information: C56.3\\S\\Malignant neoplasm of bilateral ovaries Comment: Axial images of the chest, abdomen, and pelvis were obtained from thoracic inlet to the pubic symphysis with intravenous contrast. This exam was performed according to our departmental dose-optimization program, which includes automated exposure control, adjustment of the mA and/or kV according to patient size and/or use of interactive reconstruction technique. Both thyroid lobes are normal in appearance. Heart is enlarged. Great vessels are unremarkable. No adenopathy in the mediastinum or perihilar region. Trachea and mainstem bronchi are patent. A moderate size hiatal hernia is present. There is small to moderate bilateral pleural effusion. A pigtail chest tube is seen on the left. Subsegmental atelectasis is seen in the lingula, right mid, and both lower lobes. The rest of the lungs are clear. No nodular, mass lesion or airspace disease is present. Liver and spleen are normal in size. No focal lesion is seen in the liver or the spleen. Gallbladder is contracted. No gallstone or biliary dilatation is noted. Pancreas and adrenals are unremarkable. Both kidneys are normal in size and functioning. No hydronephrosis, hydroureter, or urolithiasis is noted. Diverticular disease is seen in the large bowel without diverticulitis. The small bowel is normal in caliber. Appendix is not visualized. Uterus is atrophic. The urinary bladder is contracted. Previously noted peritoneal/omental masses are not visualized on the current examination. Impression: 1. Bilateral pleural effusion with lingula, right mid, and both lower lobe subsegmental atelectasis.2. 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 Diverticulosis without diverticulitis. Signed: Paty Vuong [facility] Verified Date/Time: 11/22/2022 12:54:18 Reading Location: [facility] C013Y CT Body Reading Room -Creatinine 2022-11-22 11:40:54 Test Item Value Reference Range Interpretation Comme nts POC-Creatinine (test code = 1.0 mg/dL 0.6-1.3 : TESTED AT [facility] [address] [place] [address] 00630-1) [facility], 770 30: Nuclear Powerplant Mechanic Helper/Techni norm ID = [id number] for Cassidy Damico POC-EGFR (test code = 55 mL/min/1.73M2 Inte rpretation of eGFR Values 32182-2) Stage Descripti on Result G1 Normal or high >=90 G2 Mildly decreased 60-89 G3a Mildly to moderately 45-5 9 G3b Moderately to severly 30-4 4 G4 Severely decreased 15-29 G5 Kidney Failure <15Repo rted eGFR is based on the CK D-EPI 2021 equation that d oes not use a race coefficien t Estimated GFR is not as accur ate as Creatinine Clearance in pr edicting glomerular filt ration rate. Estimated GFR i s not applicable for dialysis yasmany comer [id number] 11:40:54 Test Item Value Reference Range Interpretation Comments POC-Creatinine 1.0 mg/dL 0.6-1.3 : TESTED AT [facility] (test code = [facility], [address]: 09269-8) Nuclear Powerplant Mechanic Helper/Techni norm ID = [id number] for Shelby Coker POC-EGFR (test 55 mL/min/1.73M2 Interpretat ion of eGFR code = 37008-8) Values Stage Description Result G1 Dionne l or high >=90 G2 Mildly decreased 60-89 G3a Mildl y to moderately 45-5 9 G3b Moderately to s dave 30-44 G4 Severely dec reased 15-29 G5 Kidney Fail ure <15Reported eGF R is based on the CKD-EPI 1 equation that d oes not use a race coeffici ent Estimated GFR i s not as accurate as Cre atinine Clearance in pr edicting glomerular filt ration rate. Estimated GFR i s not applicable for dialysis patients [facility]-[id number] 11:40:54 Test Item Value Reference Range Interpretation Comments POC-CREATININ 1.0 mg/dL 0.6-1.3 : TESTED AT [facility] [address] [facility], [address]: (test code = Nuclear Powerplant Mechanic Helper/Techni norm ID = [id number]) [id number] for Shelby Coker POC-EGFR 55 Interpretation of eGFR ([facility]) mL/min/1.73M2 Values Stage D escription (test code = Result G1 Dionne l or high 1860) >=90 G2 Mildly decreased 60-89 G3a Mildl y to moderately 45-5 9 G3b Moderately to s dave 30-44 G4 Severely dec reased 15-29 G5 Kidney Failu re <15Reported eGF R is based on the CKD-EPI 202 1 equation that does not u se a race coefficientEsti mated GFR is not as accurate as Creatinine Kailyn lobo in predicting glom erular filtration rate . Estimated GFR is not appl icable for dialysis patien ts RAD, CHEST, 1 VIEW, NON [id number] 11:41:00Reason for exam:->Post tunneled pleural catheter placementShould this be performed at the bedside? ->Yes[facility]AN : 1935 Sex: FFINAL REPORT RAD, CHEST, 1 VIEW, NON DEPT INDICATION: Post tunneled pleural catheter placement COMPARISON: Prior day's exam FINDINGS: Portable frontal view of the chest. IMPRESSION: Support Lines: Port-A-Cath tip overlies the atriocaval junction. Pacer device. Left chest tube. Lungs and pleura: Hazy bilateral interstitial opacities are decreased from prior exam No significant pn eumothorax. Heart and mediastinum: Stable contours. Stable surgical changes. Additional findings: None. Signed: Areli Pollack Verified Date/Time: 11/02/2022 11:41:50 Reading Location: [address] Reading Room [id number] 15:38:03 Test Item Value Reference Range Interpretation Comments Case Report (test code Medical Cytology = 104) Report Case: [id number] Authorizing Provider: Minal Joy MD Collected: 10/08/2022 02:53 PM Ordering Location: [address] Received: 10/10/2022 09:36 AM Service Pathologist: Jimena Anton MD Specimen: Pleural, Left DIAGNOSIS (test code = [id number] 3220) FuZzEwMzNcZnRuYmpcdWMx IHtccnRmMVxlcGljOTYwMl rjbnYqDUBhhHQqV7Pssfhv UDcqIP9nSP4veRgtqLVjgB ElDWOlSdJet0ijw378kUDk k8yrZMARwcksqQn9sFizE6 6ch8S1OzoeP50jyKFwJHC5 AWYqBOGoeRNmKCPsIRC5CZ XmqQViX4tcRSKyKM6qtsig OJfiCOwjYAWvsQX7TMYlaW RxD2ViNFCvBItzSOJtkly0 QzVpIg9xsSBqrBnuDDvnEW JkXHBsYWluXGZzMjAgTEVG VCBQTEVVUkFMIEZMVUlEIC kYUSYOV0WNCcNeUX8QSPAL GPbtNbwRL6ucWgnolW2uOT WgEY3pGLUOFtDhFBYOWDoA PFjiN7RNBEUqAXYLY1OLA8 uYAIXfXr7JGD5OWEsKBgNW N7yhSDZOVTRUG03KKO0SAI xbIWV9d2azaKMnQJBxxQPc ODAwMFxhbnNpXGRlZmxhbm xcCFXzFKH2fiMaIHDqRBzs LWOlLXprMz2xqXRtwAsrIu DkCVWzt9meapSZdfodbJv9 n9vjZEAyGxP7bKHnWLnlZ7 lfodSqcKEmDKCpMRd0oQ00 VJNryF4jvRMoBGdermJzXh D0PKpgWYJyLqW9FJJgaPXw AJVbA5xdPKSyHLmqHCRhWU edpGOyGUP6pTsmp6N2zEVr aGVldHtcZjBcZnMyMiBOb3 HqPHs9uLtwK2JbGMKvZcP6 bHQgUGFyYWdyYXBoIEZvbn W9qT53DYgjlkU1mURoi8Qt e57qc816sG5zbOWrVWK7MW ZdHHXmjYPtPYWsKLM0CHVo eKUeV2elHBUzME1obqhxQU yaVSqiAPCumDH4IARehYYb Q5OqZWEeXJceZIUqrph2Jl OpWy6dqLMsdKpcFSodt8al w9knoABkDir4DOYoOqTrAo drVMgav8Hlc5kmPTLrrt4r NXE4dDPmjSbvi5B4vNTuNW TppJUcIMMbAZ5naFNeGNOi tV8aoqwbZSTmWlEdzfaiKL IfvZsraiJoWg2zoAroOWX7 XPumQ9wnjL9lSnV4CCrbU2 pthK3kKHe7AJshSQCmgJS8 bdU6NULvlOGfB3MdmL6fPC TrZV7kpet1g4dnAYK4BJrn ZBLrCcE4afF3GSEqsGScOU DguCbtMXdvq293DUD3ByEr YGYtu5RhT5LgyEpxR57ihW kcS44cNADydRabnJ9ifLxv wK4rPiOkRxTiPRepiCxgPM 0kUWQkJ1hhyNYlPJKgIKIl J6qtQeWlqC8asPmdKUdsrt MwTMFpFnf0FAFccCJoDYUw Kfz6ECUzMJWgW80uzsgeVR H1jN8qe3eyk1BdSMffIJL3 HVYdr52lLJfzzcB6DPozOn 56FKbaNYK3PXruLYW6gF== COMMENT (test code = p3dprANeVMIboCZ7KqPpOG 5106) Fis1aak0CnpWQhbKPzBIgm iVGubmRuvl75gDU7xV29HY 8zSWMfOxT9LFNqfcQ4Xom9 EYDuAJFppQQxH250m6emk6 ocmpGgpDQ3yIkfAPLcetoq VcA4MIwvDFDskukuTGf7EZ mzURFnlMV3LRIqxRXnV8Dy GPDwSZ6larv1CPO3CSmuEZ HrKiR9NVImsUNuWNXyeGlm CZdrs782DCZ1HeOnUMCffn OtzFrliD1fQnDpFVOBcQKq z8DzK4fcJT1rqUJqX48zsT 1fRCJsc6OjrpIgX8GctgOi qEXuy8NmQFhpPPowF5NgfD CqZR1nYFSixf4kjNQntA0w uSAtlTR0zK9oGxPIseL1tB XaV7ZgxFIfwO5smuNuRLVs enzbeIpoKP1mPZH0nXgpBJ lqN7VelEAzu9NjGSIkzSld bGlhbCBjZWxscyBpcyBpZG KuiSricFXiWAUjHMRnm0Gp gE0cAMOuk8n7bRCkcZjgHl 4jHPDizZ05GZTGZ8YrUOhh YrYdJRMvDN9kZFivu0OoD2 VvdZVzJVToLP9bxWKtVVKc mXo0ODopYZ93nMGdIGClx2 4quEywPWS9wW5arRlbvluu QcB4QMVmszLdVQUkr7Rdf4 2hMJAcj9V7TYuyHlIPxLAj ZWZvcmUsIHRoZXNlIGZpbm RpbmdzIGFyZSBpbnRlcnBy ZXRlZCBhcyBhdHlwaWNhbC SxXVrhthceo8SxeCsvtT50 rlYlp9FbxEUgpEziDB0leV 2zQUMmgmykSMJpYb5hS3Kn ZTNDWSZum68unHCrRHqmoL hpkPhts5CxKeukOTxtG1Vj XHBhcn0= CPT Code(s) (test code w3cchPQuRGMeqKW1AzFzQB = 3357) Woc8iua0MimVYspUFpDEtm kLOacnZnuh08qYL4dZ48FR 5mVHAdPxB8MYQxcxB0Lpk1 AQJaKXDeiIEkF276r2vov4 ixozZroNF3uYppOXZdzaag XrI6MNfqAQEugmcxTFi4IB pdADRyeRI3IPPysWYrO4Lm EJMqKG6sjtu0OKK0FSyvJP GeWpT2GFVqjCPyVSNdbQjj TIbcr003TPD6DeNzAMNqyp YauXlaxY1zNsEwPLY5DUHb QDmfCNgsEAJeDIf4TvCeZH E9NHH8EBlaNOWqon2= CLINICAL DATA (test e0mfaRXtOWYivOH4JiMsGR code = 3355) Unb9vda4NhsZGhxOGqNYea oUQeknOkto01sKU7pW53TR 4fEWFxQkL1BMClhxS3Fmq5 TJHrSLMigFJbZ879p4hpp8 nnrcQqdOF8KGJgHIVoZ3Qy DM7eCTLhjPGuV71ppRFyHQ X6YRNiRCDxoTUhJIVpCTG5 BKKkoJEzT9tvUIMqPH3meg enEAplDNkuWYRbfDF1PPRd eCHaP6QnBJOpNDaqHNNrjy o2IoUrMq3xhJOrhZvyOZhx YXJkXHBsYWluXGZzMjBcY2 HqQXd3SGbiih8pjlEkaBZk ZVx+k2i5fNKJTFagp5YwRX 5IRnJFRiAoRUYgNDAtNDQl NSluH4MMXULuQFArShuzmM F6MHT7YADvSxRritBqeDNm IGNhbmNlciwgXGNmMCBtYW xlF28juwZszZkctRHtcZDf EiG6g3uebgOoTVJtia1vsD NktUqch1wcTzUiOXSymTSl dJ3tkDBfQXmcxBHhVKosab AyTCBOQyksXGNmMVx+cmVj DK55CXKirLn6RHGtolWhE9 K5ARAnrpIezEUzdrpfWVVv wbXfIUurzPVkTM3rRJNvOv RsOrRqODMsGrrzWySfAQ3w D1GrHIUdOXUdlnPiFONhHC EgdHJhbnNmZXIgZnJvbSBC mbF5z8Hkg6M4HNKpgvOdqP I7vXLeRPB9NDl3XXIjh55j v6YpCVPei01yTI3nWVFcVO DWRUHlBC5isNOvaE== SPECIMEN SOURCE (test y0suuHBwCBEitCK6PiOfBR code = 3377) Upc7jxf9XskWKybERdOPvd vCGuxaLmtp91zGQ4fL15CL 9cDQChOvH0OIJfmcL1Smx1 JZXyXNLkhTQhU871d6law6 nftpFisTJ1tAczLKOnkyja NjR1TVblZGUnwoehEMp3KC ykZJSbjHD1OFYkkXJnI8Ay SZHbDT4odpp4TWG0PXjfDS WkOfG6PMYqhATsUWOnvKor ZYscx002RFK1SeGzISElbi NgsOlolL2qQmPzEEWPYIDG IFBMRVVSQUwgRkxVSURccG FyfQ== GROSS DESCRIPTION (test t8wlzAFkZVJgaXSFYLXxX0 code = [id number]) iqpqOmSLOopRDqM6Uxihqd YKqgHR7iXD6ykTczqKAmqE MxVY0YABKdChAvVAPcgPBv utFtYpKhDLFebUXskYD0CE OdKS2ewpifQLccKZwpNLPi sgG9BXNivDUkY9GuCPAvGJ 1kdbykJUF8DNjzgY3fqdUT LuxdQr2ugXDvkDvqJrXrTo NoYXJzZXQwXGZuaWwgQXJp MCr0bV5DBcxvADJ9KCKTEf yfGKDsPS1Ew1ngPPRtlOKo FII7VWxuuNClYRYdUSLxIX b9JVQtGOcyuFBvZO2zbRch AcvqkJpil4QmbABsYThpPE HrFBRcAUsxCFBuKS2ZLyXj ZOXaIOOnQUqbHYd8CEf4JN 9WUyAiICAzMTAxNzIwNiIg ISs0FSnfZI0VILDuVXf4XO nhYcA1FZO6EpMwRBAhCxJk XGYgQXJpYWwgXFxmbCBcXG 6ngIfhoEJbhqRLIlSIzBE8 orSiMDYNCFJ3AhkpVIBeBD hcFNNdT29nv7FWu9CjUR9Q KFb3zuDigwkttK9oOYSndb PqVWiykWIlT4cyNfRbOHJQ EBLsbBEwUQX9BBNwjMtbNM FtYmVyIGZsdWlkOyBwcmVw KJGrARQ6YON8qT6ppCumqo VtcqDvK9TqpKUnqO0ggyjL MrcfBXQiu8MtnKpgDAScrY qdMldiB4odj4AqaSRkIBZt gHDdhixqrCPsCAEuFqj9DQ OwrsHgwY6qhLfoDNF3iRVm wtWnFPBkl16xNPHuuIddFP EkBKSadOQ1WSGkYor5NAXo aD7yZc2nqAJudX0bADAjGF O6BMLaaB5ft63aYJWlUeSj MjAyMiANClxwbGFpblxlcG ieRkUfqXFiLpRlnRhgqM99 MFAaeWXfQQE3XL9rVWPvca svYXNjAVMxMAW5LJtuoL18 bLHzEYJfTEXfnJApxF5LGY XaQHU1XXbyuC68oHGmKM9P XOKtGNX9LFAheNKmTWZ3YW 6inA6SkN== MICROSCOPIC DESCRIPTION y0umpWEkGSJtlFB9GyYqIS (test code = 3371) Icx7pry1LxtAQtxKFbFXfx iRYuvgJmxb69vMR2hY50ST 2nQNWoXxT0EVUehfK4Mpf9 DMLdMHEapLEeG602k1eec0 jgzkOxrOY1kAbhFXBlptbs SrF2MIfyHTZydexjJOl9ND heXHDtiQE8PTTfaMCvK3Br PTTrNH9vnwz1OTR2OPyqNC LyPuY1CYWxjGScMLOybCfa DLahy453JKX3QqFlQHBosg IsfAsnoH1vZeVmCZVQXVPf n3GkPTUvLOnkAMV2 STATEMENT OF ADEQUACY Satisfactory (test code = 2757) SPECIAL STUDIES (test k0qeuSZnMUSir6zfGPQvjM code = 3376) FuZzEwMzNcZnRuYmpcdWMx VYfosoBhHYlhu9UhR7NsYx AwMFxhbnNpXGRlZmxhbmcx UNPxBEC8ahKxXQFeWKqoEF GoYOuhXa3ukRXiwEhoBqUv LCSnf4kudhAQdbkhyPz5o2 kwPZMpZnH6vXZzQXyeG9sg ytZfsUIzP4FqdPOddYd2l5 uqTgVfVhO3oJKcNFitO6po ivFuyLYvSNYpJKv6cD39TF HncJ7ucOHdOVslasTpJcP1 MJxiCVPsYpY9VAJpnQNoIM DqW9ifRCBsTAdtHESvLXdp pKSbEGD9eWbnk5L6mKWjeA JhyUyvMvBzBsLlHcNGe1Gl HRk9fEosM9TfUJDyVaA7wP QgUGFyYWdyYXBoIEZvbnQ7 pCjbopZvf54gwRDiSFKuVQ OrDuMerTrhJTDwBTEVx2Sh kCtqVOA1aMw0wCfvGdiyWR R8Vqn1KR4pnu54nuc0lTtj ITDgusqqCgJ4XNxdOAVjpz kvGCv1VMqzJDDdgAE5XXSz mDSaQ3DrVLKmCK9enoe5NV D1ZTruVMPtHhU8VBBssYUe EOAtyItyMGkjf801VNT4Zx LwOH7vC5Xdm4C3jL2gxJNo CLTngQCxCkPkPVRtum4sgB VdADsnf2WqQTF7ycY9xDAy bIQwXCSsPZ35Voehq6NhCo plt9UeM43gyWT4XKehb6bs XQ9kRzK6srZvLKzlx5uzjF 8rHrF0FLrcWC8qOB1lQFQc oG2xohmkAJMzAwNfrbuaZW MbsOylhrCtRk5qiMsfMCQ8 QWwiS6wefM4pQoU3PPymG8 gyhZ3rZMq0YLeaxFD6MVPt yD2eNI8qtwhgh0qkVPmqSN jyPYOqjoF9ppR1NGMkoZXn Z7KtaL5mICLcPA1fdidyl7 rxFEB6OBpeKAAsOBE5FjZh YXPzf9Wvwwc5CpSgz9DqsW HxAMvlM76sw178MHRgbgHx Q6uqeMMakdtbdWVodazrMP wlyeC0YFXtNSRpMCixMEUe XGZzMjJcbGFuZzEwMzNcaG ljaFxmMVxkYmNoXGYxXGxv E6rvOuNdZ9OjHCDeFtNiID ezRUbrtGEjvXDeuXS0zF1y JE7kYJFxlINzV7DvABAxby GzqBGfVDZ4gVPcaTRsCC2o ZGsuoDXmn6nzw2LvW4bltE nzrWZ5EY8uCRQqBVNrRZxr n1QqnY4kIrqysEUremnkHT xmczIyXGxhbmcxMDMzXGhp Y7rqBwJkAMJbiBxjMWunu3 NoXGYxXGNmMlxmczIyXGx0 cmNoXHBhclxwYXJccGxhaW 1xRvHiLfQvZftyCB3tJRBy T8vjaNMhUVUdQKZqZ6yuZm McuS5ttGgsGApeIfXkAsPd IvAYu858sq8pZJGnfXMpkz KKsUZzxZ1eNAheNTjhACzg qSYbLWdwl9brOIUgo0z8fR VzMPNeknYnd4hsATwkqxSv YSIzjBNyyNXwMNZeo85sLB tagPrfwPwgVZCyp8MugPhg d7FsTpXzJMyav5OmL06jnY JvbCBzbGlkZXMgcnVuIGFs h80ri9fyPRViWiU0zLWwlU R5oHHihUKhy9IyfAibOXYk r2reRMPzov5jbqicrCIpf9 NdoK2vwnlhNFhybAIqxiMp ENGyz5e7oXNmFKQvVSNlFB dzmIl7GLCkj084zs4qjnP7 iFRnXNT4JNjcPKEnUUQqcw UgZXZhbHVhdGVkXHBsYWlu XGYxXGZzMjJcbGFuZzEwMz NcaGljaFxmMVxkYmNoXGYx CCnbR3jeGoVlA3BkTMSbLp IxjCHfT0umfUXiIHFdAEsy XGYxXGZzMjJcbGFuZzEwMz NcaGljaFxmMVxkYmNoXGYx CRdnM6nwHuFgJ7CvNIKeDq IgIFxwbGFpblxmMVxmczIy MMlbogltGHUkTHipY9skHa EcOWWhjSntMXgdo6CxOXZi MFTwNppyupTrMSu6vxYtLB BhclxwbGFpblxmMVxmczIy TAvwgkyxJDYwJCquG1ilBc KwRQOxxRfuOTdbt6PxCAAa XGNmMlxmczIyIEltbXVub2 nyl1VzC6hklCvsmDF7IHTs B4zfpWZjuUB3IHB9oW7aJY ejtgXqIZBdm3JaJXEyJESp FdJ0uM3aTPI4BcFDmCnyQQ BsYWluXGYxXGZzMjJcbGFu ZzEwMzNcaGljaFxmMVxkYm OrOLJuBAoeW3ijWaUjU5El XZNbKmYgnRngWJumDDf7Aa xwbGFpblxmMVxmczIyXGxh lrduTIStIRhoD9nqLjCuFU QlnPtnFLpfd3BtRYKtNPTd MlxmczIyIHMgTWVkaWNhbC CCZL01GLCiRMTobRofxO0f mYGWINRlfjI4y8P0VWooPI XuEYp4NHgpmgLqXJVmjW3b ZEAaTH7oGSj6gfCeKBJtd9 DuDK3jLNRguXExCMD0PWKz z4NcZ3Avr2HrKDQmWZPqtf 7eecYvEvUFgUZlVHPzyn99 IZNhVN7jY4khYRKeUYAbyc HzqTVoq9IfXRFxeJN9rTNw TV6PUjZZu69oGNFuFAHRuc QaQPXfkBskaIO9biC7lP0f LiBUaGUgRkRBIGhhcyBkZX Ossm6dptIcXVHmUVMaj0Ad iRBcpUScdjIhL5Bup4BjCJ Ezqm21WPizsTLkmk56GQ5j D9Cfn1HgbA3qYWuoRLNtz1 TjyEIwbYGtZKZfo5ZfH1az tktbIIiijHVgqZ7lFEDyVK u2NVGnh8ZbNNCuf1WcPkWz jyVyVMXkLEAjXYWmiN46ZT O4jIgygJcasqCuXG5jGBAm snUqLGRyYMMpjS2hDYgibj EuTMRrukL0q5H9YGbnUWKu ztSvXkifBEX8ekFdtaZ5lB SoS2cwmnsyNAjbJPShx5Td kJ1ydULIlXPtt0HzjSHvmH JZgZRlIH1xyiEvZO0sODI0 ODggKENMSUEtODgpIGFzIH H4OWnxCfmlVLW0huXdFAMk v5YwPHurR9yfO36jiAigvX q9sQKhsAfauVGieZSrGJWz rfG9j4W1XWVhr9DilpfmTB BsYWluXGYyXGZzMjJcbGFu ZzEwMzNcaGljaFxmMlxkYm TdSAWmCTjqJ6tdDxKhBnVh GfynHXI6nC== Gross assessment was [facility] performed at ([facility], = 2777) Department of Pathology, [address] [place] [id number], Technical component was [facility] performed at ([facility], = 2778) Department of Pathology, [address] [place] [address], Professional component [facility] was performed at ([facility], code = 2779) Department of Pathology, [address] [place] [address], [facility]38:03 Test Item Value Reference Range Interpretation Comments Case Report (test code Medical Cytology = 104) Report Case: [id number] Authorizing Provider: Minal Joy MD Collected: 10/08/2022 02:53 PM Ordering Location: [address] Received: 10/10/2022 09:36 AM Service Pathologist: Jimena Anton MD Specimen: Pleural, Left DIAGNOSIS (test code = [id number]) FuZzEwMzNcZnRuYmpcdWMx IHtccnRmMVxlcGljOTYwMl aemrHhFXKvtYQgQ5Iszggn UBqqWM1nJF7vzOyinQGchQ HgZJCwThJkb7fkk126tUQo r1dsAAOTfiyobKa1iGzvD3 1th6W4XhkvS99hgYMlFMT1 DAAbILWbmYOnHGNvAWD7NI BqiSPrR1ujDRQvAZ9wmhde ETplPRcjIWGydUN9ZCCpdC LgX7ZvGGEkVTboNEMjdhb7 KhSwSp8zcVTkqQufAZgyZL JkXHBsYWluXGZzMjAgTEVG VCBQTEVVUkFMIEZMVUlEIC pDPDTIR1CKHaFgMU3VSDUQ HAifHucPM6keTwqeuN3dVC AqXD4zEMMJPuBtPTMVNZuO HGirI1XPUKHyRCUOY2QOW4 uWIZCvDe2BYD5KWWvQGoQG R9skPJMGEIIIN14FZK5ZRM zyKKA6d7sdfFRuJMPojJCo ODAwMFxhbnNpXGRlZmxhbm xcVKTmNDW0hiJnWOBpSRvn XWJrKNhhVq1sgDWirHopYz UfWBGlo6gcqyXEistcxSh6 t7rfTWUvLpW6dRBpVFuxU3 ryvwNjkXIsKJDkYGz6fR39 BCPdkC5fbBSyXNpdrrJiSk A0UGvaLTHtHaP1IBPafNKb PEWiE9puOSLdIVlwWODhML gbcGYbXGY7hWqvd3G2rRHs aGVldHtcZjBcZnMyMiBOb3 SuQRr0cEowE6ZwXAAlRlF6 bHQgUGFyYWdyYXBoIEZvbn Y2tZ63YCdxjxN3mDKhv0Cu e76zs823rJ4adLBpWJX4KV BwJUIygGYzOKXmLKO3XGVb cFEpC6rxWYQiMI5wxguuTQ xnSNtlCWDecUS2DPPheHCh F7XxIIDkBNtcQKOnqfz8Mw AxBy6vfOVxeRckVSmvs0xz a6mksFWrPnz0IOPaHdGyAd fdDTwuy7Xtu7qwJQAlsa8x AMI4zJHowVcra8S8yDZvZK RyoBLqAYDtWT8oxSBvRYKw jQ3eupdtLEFcOtTqwubfMD PrbIpqfnLpWx3jgUzcMVN5 SSfgU1wisR7xRtH9PJfvP6 baaH6oEGg6LCcuZPOmkYW6 vfM8SMKrvIRgU7CxlO6pUK VkLL1wpgz8m2geADG6YDct OQNqOlP3gyV3EBQtlRZdVF QflJimDPomz557NXG9QeUz QEIkd6FaG9ZmnSjcM85nqW poW52sXYCxqZbywG7saQzr qQ7rIhGwPeRyOXdtkOkmZQ 2pAZUeB5wqcFQeGUUuAKPm H7jbQxCcnY5qgZztATjlji HlYNAaKgs3HZWokHXbOSRn Krw4HJCfGYPaY67gimskAR R1pZ9uc8kkc5JxPKedCCA2 ZBEdt98rBZteywV2OTflRv 25VZdiKHO5WSzxLUS1hI== COMMENT (test code = e0bexSZcZQNjwXO9EjRkDY 3359) Qck4hnl5SbvLLokBXlZClt gENpcuAcwe22pCP3dB34WE 3nZDDzSyS3BZCarlM8Pqy2 KJIhDFGgyUCrS094w0wkw2 xsjzOmkDB8mMtdUGYvrvac OqS6FLbdNKLfszetRDb6YX iiDLDjgUB6ZBLnqSTyF2Ir KAOtSE7shhz1LZF8NKdoCR AmWqY1DSQejVKuVGIgkKkz BNqtf409FRI5XpJvPTUggl XwiAfxaY6fHpSvXCPItMCc c2DrO4acVP9bgUEmW06ibM 6rXADog4ElmhYlO6SnxiMq bBSjz8QsWRxuJLxfE9BkxL UiSW6pICWuuc3efIYbxX4f jZRwrIL8jQ6uIkQBvbF7zU FsD3UgvFUnaH2musSxSNAy dhtvtLurGW9fIMD4rKguYE kxH5UrrGStp9ReWJXgtXzt bGlhbCBjZWxscyBpcyBpZG BwbBmsqVWyUGZaTBYof3Bw wA1eGRLhu4h7mRWrdXodQf 8zGATrmG95TGMSV5HhWYac FnWxPUKyXF6zWCccs5JuG7 SnxIUaIPZcVA7kjLKnSITv lTf1JTkvFY97yNKzIUAub1 1lsDysHMZ7fM3vyXpdtldy UrM8XOMtxoZaUWKvq6Azn9 7wSJSzd6A2GZbfHoZMeJVf ZWZvcmUsIHRoZXNlIGZpbm RpbmdzIGFyZSBpbnRlcnBy ZXRlZCBhcyBhdHlwaWNhbC FnZUrlalkym1JayQubuL95 zfHyy8YovGGptCziZH1gxG 4pKTHgshwvYPHxWf9vD8Vc EOMGZSAcd69wnRNcDMkyxL qlfPikm1ErLoamAIakO6Jq XHBhcn0= CPT Code(s) (test code p5buqQUsBKVydUP9UaRmEM = 3357) Qli5rts8ScnBUnjTUfIBzr mPWwxyZgyd74gTY7sF63KF 7yWUTpGnK3XNOlnlN3Ijq6 HCHqYGVxgGUpV150s9lun3 qwfjVwkLU6oCrfSQAeohoc YzM2FOcfNEMtojqvXTd7MO wyCGDtaFW4NDAdmPVvJ9Iq ONZjID9gugo9WXY4VSvoCO DhLdH8RDQvnHDpGHLubWkb GElzi435UCX2YcRvCQDyyf NvaKamjI3qViMnWMY4FGEk DGedWGzbRCNuPRx4EmMhTJ W3WIC4ZWqdZJTiqk1= CLINICAL DATA (test b0ohrQAlIQGyuLV9EbNgLD code = 3355) Tue6iwk4CmxKXjjZRlTEjf cFOtwvEbza36vVR7wT96AX 4fEUXyAwS2DVMydsY2Bgr7 ZOAsUCSscMTkK493b7vzj0 ewxiRrhEP3LLJrDHPaK3Ri VD8pQNVwjPGkJ84kmGUeVH W0VBQbOGMhqTUkTEKwXQO0 IPKcjEReV9tvZBNtTF0rpj arZGwrKAlhTPXclNW7IYFv dQBgG0UdXCOxJZxhLKRzjl s3NjNfQz8stCLhhOhwEKxi YXJkXHBsYWluXGZzMjBcY2 HgFDx3FRvplq4mdgKkoZGq ZVx+r0p3wNFMAKnqy9BuGQ 5IRnJFRiAoRUYgNDAtNDQl TLdwR7XOUDSuYNCeOaiizU F4YQJ0PMApEnJdrfAukHBs IGNhbmNlciwgXGNmMCBtYW scY80oadFjhKhgkBShsTAh FmX0f9suxlJcVAFqqt2kcZ XttHomb0amOaIjCSVqaLNn oD5uaGYtDVwnlJSiDUobeq AyTCBOQyksXGNmMVx+cmVj HY00VXEudZr6DCRdhlKxO4 I0GRHhgpPrhKJrtnwkDJNk zgSxUDzzbIDeZQ8jSGWoDg RmUlCrZEOkWwkcDpLsYL0m N5UgZHAyMREgktTgUFGzEJ EgdHJhbnNmZXIgZnJvbSBC brX8y8Inj0A0RSHszeWynP D0uUCvARY0EWk5WZXnn53c a8EhNWNkd31qJW2lTDXxAC XLGSYxMJ3toYBtxT== SPECIMEN SOURCE (test r1bchRHkGLObnMT3VmIiRS code = 3377) Suv9pvd8BgqIXwpDHbGCqj dKNpusEuuw21jBN3lH32LX 4aSBQqSzR2BLQgsnO1Kav4 LJVkTFVbdAThU713j3kbi3 bykvIjqKS7lYugABFandox ShH8HIgbOJKnxsrgLSo4CG tsQBUeqNO5DVMoxCWhN5Zv XWOkSI4dtfr9CNE1LArxJP JzUgF1VUWkzEFoXOWtfBig SBgmh981FWW6FiDsDYJaek UhpPyjoI7kDgBoWRAWXEMJ IFBMRVVSQUwgRkxVSURccG FyfQ== GROSS DESCRIPTION (test h9emyBIrDFKdgKFLSXZkF3 code = 1709304651) yfhnAwTWBjzQVgM4Pwlrwk RJfhAP7tOM7ykPgqlVAieO DmZG0HDUWqRrNbAZRjkEQx ybWiJjCmHOYjuBJrvXW5ZS GvRB2mimqtAUvxUVuhDAFx epC7DMBlhKCdE2ZnOEMsIM 5qhrzjKMH1SDeqdU7dcxJZ HpxgLc7veWDzsUbwMeKpRx NoYXJzZXQwXGZuaWwgQXJp OIo5tW8OQsipUTQ1IWAAUr luAQPoRO4Gd1pmKPQdjOMe NUB9QEhdcYRcPWUpOKClDQ l0HRJmLRminEDjCH0fkBor UloldEstk5QfrEKwNPzxIR YgUIRtTGpgGDEyYG5FMjGa OCCnMJRvNZvqAMt8UEr0MB 9WUyAiICAzMTAxNzIwNiIg EMw1FTqsOC8PQVXuOOj0YU amCfK1VXX0PgYoUNWcNpXv XGYgQXJpYWwgXFxmbCBcXG 9wmBsgnDDtbmYODgIIvSY4 rkCqGVVOGRD1KhcePAYsQS uvIPByJ71uw3NWb1UwTH7H OSt5onWpdexbbU8gUUHnza XsVNlytMRgO3reBwBdPLQR DYZnuZDpYGG3TADikEewYW FtYmVyIGZsdWlkOyBwcmVw WQSvTEP3NWP0hJ4cbJdeis GputZoE5IptCQajY7idojB StjpZUGwk3LnsDmjSKYwfR ilBqrtU4iuw3EzfCZfAOLy oNXjkrzrmGWzVAOxUad0IW BfclCdkI8bxQjwZRE2wAWt aoDeFOOuw17cFYOjhAezBC EzLRIqjFN8RZDxBhk8VWJs pH0rPa5xnDXbwF2mTUFlFE J5UWBxiH1ez57qSPSbHxVr MjAyMiANClxwbGFpblxlcG wfDfUtnQFmVgLgiUhazN97 WGAfzOMzVOQ7CE0uHYTpub cmZSMnHVEePKD2VHmmuQ37 lXMuDVPbHEGdjGZqhL9ECW PxEGW8RLugoM46kIOoMN9B RKIvTHS9LKWcmEUgKUL6YE 8cpQ1JcD== MICROSCOPIC DESCRIPTION v8oszWIhFNYazUP9OhAaBH (test code = 3371) Ann7hge7YuaFNopQDaFHsm hAMquaEtyf08nDO3zJ97ZS 4qTAQrJwW2BUOcguF0Ukh5 PDDaQSFjjEMpO971p0vpo2 vbawDapEZ2aLpmZUDpehvy CwN5RMyeTVEuwksyJRc4VI kyKUFliIN4JKYvzMUwZ5Ul OFEeSA3cbhy4XVK1GFrjOQ MjApP1LBBdfZXfAWVgfVnr WTcuu087PHM6QhNhCEKbcm UnnZuacO1sSpUnPBSYOQIq x0OlDHHuQVsjEGM6 STATEMENT OF ADEQUACY Satisfactory (test code = 2757) SPECIAL STUDIES (test x5qgoJVoTIWcz9fuWDObgO code = 3376) FuZzEwMzNcZnRuYmpcdWMx ZKtwaqZcIAblm2JpP0UsHo AwMFxhbnNpXGRlZmxhbmcx ENKbGKD2vtZyRQGaMVusXS KsRDnsPe2eyRTzeMqpPyEy LRXfb1hvplRDrkpktSx3v5 fzIOZgOrJ3xJBeAOslH3so koEadEAaL3WmqSTsqMs4r3 cqFqXaAsR4pKDzQNaxD8mm yzXvyVJgZGGgTLm3eY81ZN MhuF6tuMWoIClvceLtOvY6 EIjkCRMnVyC6DUZqwVBuKT WkI9qwUNHtMTlsMVZpUHej yGFtOJZ3fQsnm4M5iKCmpJ RmbPbkRxRbGyAhBzYEm1Da PJz7wTgcS9RtDLVpPtN9dD QgUGFyYWdyYXBoIEZvbnQ7 iHllfoVjp51uaFZtOYBnHZ GlMyVqlWylQXBfEFECw8Og gRurKLO6sMn5eRenOrkrIY Q2Say0IN8qvt12qtr0aTre JSAsedrgFgO6QJmtGLPnhi uiLWq0QSckKEXytIK1NLMz vUWmM5OpGGFkXS0inme7OX Z2BSzlRPTeKaQ7AEEpzFAp BLGiqObwONcoj829EMF6Mx QdZD0lN4Yae7G2mF9aeVQz YPVwjCQyAtOyKWLawf2ydX VlHQerk7DnXEY9kzF9aEJy bRHkRXWbPN70Qkcka8CmSw fyx3OrD97caGA4VAect8yb GO6jTgM1dfUlJKbtn2vefO 9jBnO0UVdyVF5nRU2eWRXf sD3ppgtjRUPvVbWgmozwPR PakZuuyvMeYv6euTdbOBE2 RErjL6gegS4nIfA5HRvjK6 uchW4fNEu9KCpbaFT9WJLi zE2zCH7ivlqlk5xnQWjwLR qvJJDwrzA6lkJ6DDKpwCCw T4MhnK6tSUKnGB4jmvsim8 txSXI2ACrdCSIgIAM2FyDq WWArt8Roxnb1SmBrl0HooL DgPXdhI60yb414ANEuisZf L0wtvAOxiuztaXZtyuvaWM voxnX3QANjURBkJFhqJSCk XGZzMjJcbGFuZzEwMzNcaG ljaFxmMVxkYmNoXGYxXGxv S2emNqMhJ0FzOBKeYmOgQV gbBPgphCEhkWUiiLR2aL3y GX3hBZOxzLYkL8YxTFYnfw QupQIiNZF5xIEhxYIhBS2a HFfvlYDvd0omv9BlT7kxyA bjyLW8BQ9cVJNtBXMeGYrs r8WvrY2zUxieoMCbiqmzDP xmczIyXGxhbmcxMDMzXGhp D5sdXaGbGOUfdSxoJYkaj1 NoXGYxXGNmMlxmczIyXGx0 cmNoXHBhclxwYXJccGxhaW 8jVnDwCfSjTnxmGT4aHWUw G9yxcXBwBYXsVCEaY0wkCt KyiA4kkAnzELxrMfOqCmFi GyMKa203pu1fSWQozVYsue GLqTGzwQ3gAXdlRAgiREiw vJHaTLrar0aqSVEnh6s6cL LlWBQiavQmj1beJFnnueDr MJGpyDKiwMYvIBMnx03hTM ogyYjodBdnDHNtr8EypFet q6EhZrJwWQotz5WcO40hvT JvbCBzbGlkZXMgcnVuIGFs i64si2ffVDZcRmH9iYCpxZ B1dFKjrYPry8JmnGjjDZYw l0syTZAtxo4hqxkkiMZgt8 PvuH1xspdpOYlmrPQccbOb CXRvt1n6lSEeKVQoADLkIA tkzXp3VMZrt522zb2vfaO6 fBYcARZ7LSfpTZHpLNNxau UgZXZhbHVhdGVkXHBsYWlu XGYxXGZzMjJcbGFuZzEwMz NcaGljaFxmMVxkYmNoXGYx WEwiG9dnNxFhR8SfXLMdLg EvlYPgO7kejBBkSZTgXSlf XGYxXGZzMjJcbGFuZzEwMz NcaGljaFxmMVxkYmNoXGYx LKfdW0bzGzYlY1MkSPOdIh IgIFxwbGFpblxmMVxmczIy HAxouffyRXWyPKxmC0wqQa VmTRXjdQqzSWzza7UgMBSf ZOQsLtqxweWqBGx3rrDnMP BhclxwbGFpblxmMVxmczIy FBcdobmzFFDnZEijJ2bcJo UnBHZvnKjpRIdby5VoUVXj XGNmMlxmczIyIEltbXVub2 nqv5FwQ6tmcJxpdXM8GVSe O3oxcNOnyVE6UQW8fE0qUH nupiFwDVQrn3TwYDNaPWPt NdK4jG9ePQW6AhKIxEpoDO BsYWluXGYxXGZzMjJcbGFu ZzEwMzNcaGljaFxmMVxkYm BmWFXuCRyjA7nvBfOnI9Kr CKQeEdTdnYchXYooAXg1Nz xwbGFpblxmMVxmczIyXGxh glrfZEBlXVxoU2hoLuYsRY AgySjxDStex3FdASBnLXUa MlxmczIyIHMgTWVkaWNhbC BAON96HQIrQIGhzMzutU3f lECFLHOvibZ5v4I2WHnoRC DuIJr9ZPjwfaGgGJZrrT5g OMZsRJ8aQFc0lnXhFFTwz6 SvCD6sSYRztTNoLQR8PBIm r6TcI7Dwj3ZuQIGeDZVlbz 7mseQfYaJFqUKaPROtrm37 VDHtRY8aU1rfZTBvTTSmhf PnnWAhk2RtOJVhbPW2zLWy YG9VQiFDk47uITMsPAWEcr VmXGQivXqimKH3wvO5uF8q LiBUaGUgRkRBIGhhcyBkZX Kyiq1lwhBlPLOwAZHta2Nk iOFbyHDjboViQ2Aub6PaFP Zqzg48IRjfpSPvpx89QN3l K7Aki7AqlW6fSCrjMVVwv5 QysYMecOXwDUIbs3JiT9fk yujdCCozqJQooX4fMZRcVZ x9BGIxh0PoKQZzo2NuKjNn icNcSKXvBYOsPCTyuU99CF Q4lGnbzKvbehAvMS9qMAGp ooWxJKJcGUFpnR9vHWakey FwCVYspqP9a3Y9VDvxPSTx swToBkdhENN9pzMxfbD0iZ UkA1jhybkyPNehLKJhh0Bd vQ1vkQXUoDVsx2HfmTSmpS JCbDTvUB4hqoCuKR5cTPB7 ODggKENMSUEtODgpIGFzIH Q6DLmySlkwXRC9tvMhJJCd v3MmEFsdR1idF03uoNgpdN y5aTWbnJtyhTOxpHVrQQEk nkI7z7Q6IHJhz3IkkkoySD BsYWluXGYyXGZzMjJcbGFu ZzEwMzNcaGljaFxmMlxkYm WvDNWvARpnY5bwYfLfOgQq MjqnQLB6uZ== Gross assessment was [facility] performed at ([facility], = 2777) Department of Pathology, [address] [place] [address], Technical component was [facility] performed at ([facility], = 2778) Department of Pathology, [address] [place] [address], Professional component [facility] was performed at ([facility], code = 2779) Department of Pathology, [address] [place] [address], [facility] Test Item Value Reference Range Interpretation Comments Case Report (test code Medical Cytology = 104) Report Case: [id number] Authorizing Provider: Minal Joy MD Collected: 10/08/2022 02:53 PM Ordering Location: [address] Received: 10/10/2022 09:36 AM Service Pathologist: Jimena Anton MD Specimen: Pleural, Left DIAGNOSIS (test code = [id number] 3220) FuZzEwMzNcZnRuYmpcdWMx IHtccnRmMVxlcGljOTYwMl fqwqHnUUYxyQTpT1Fdjevn VPipUZ0iCQ0dqJsheKLrcC WjBTQoJiPgy2jxy725rCSh d9teDVZVtrlqiQn7xYvuI0 0nk8I2UyxgH64ijVRwURP1 WKRgMQVmaDWeRKWnMJV6XZ WkbFZnL1bgUPKcBM8vmqdr NMpqGCwvSKBjtFQ7CJCfaU FyU0DjSOIgCLguPBQnwxi6 YsBaOa7amIEmuPieYTccWE JkXHBsYWluXGZzMjAgTEVG VCBQTEVVUkFMIEZMVUlEIC sCRDXNW4CNMyEsCF1PXOPB YIkuXswSQ8onEftqeA3bHC ZiWJ2nJPDTUsInYWSKECkR HIttH9LYLHSyMRLQE2TOE6 qDBZJhGc7QGM8QXImBPcDC C6cuFZESKWESO54NMJ3RVI dfDYJ9q4budUWyYMGjeMFa ODAwMFxhbnNpXGRlZmxhbm anLNYiILT5mcTeMZWoONnv XDMlYXloSx6mnOIagWsrAf ZyMPKzv9kqbiADhnlbwLd0 n2nqCAKlNmV5nQIyUEymN4 ivmtPmzOLvPNQaJEx2lF05 UPDmbC6gsTFiSCrwufAdCa K5KWmzEBGqOtS6IRUeqUNm MQMnW7cjLWKmRNooVLCkHR ahvOGgDRC0bIkcg8Q9bWDk aGVldHtcZjBcZnMyMiBOb3 EvTYz2nUomP6MoDPTcMcR5 bHQgUGFyYWdyYXBoIEZvbn Q0yV94RAzdbkA5cZJkt7Wo p05de127iS5lhWEkNFR0FO ZuAGPhvHZqJCVrNSU4LZNk xNUeB2jcELNgOW8fqeclRC tyAClsLOBufPH7LIJpyPMu U9BnQNSbXBqyJWArwpy8Ev LnJs2csSTfiKyiKAoib3hg l0vftMFuNss7QQDxZgTqTb mvQIfcc5Pqj1ezJEQibk4h GFY4mQPrmZqjn5J9sXUnWJ AuuQBzMOFpUX9csAVyDVRp nU1ttptlHREqGuBdyfnmNG LnySdwucItZn9zsDptPYY3 CNkpQ4voeD6tPiY4ZCrhY1 mtpW7rVJb8HFkdYAAnsVH2 byB7VSKzpAIcE6AgfI8qET IoJG1jwjd6o9ujNNC9WWbb CKQrZiS8hvJ1NMXuqBRlME JhxExcVVcnx818EQD0WjYh TGDow8KsZ5XrqXyfK42foS gxZ88mSDZccFlkpA7iuVal sI2iZgKuPyEeOHqhyEbbPT 4gQLTrE6wynXKoSVFkFUGt P9crQcTfnA2wbCifMCunhn WiMETxMfd6SYSmmANzQTBx Fqx1HVMxEQBfE01vkueiLI M2wC1cm9nvw4MhMHdmGFZ5 MKKcp68rNAclucC9TEfrUf 86KMwoXAH1ZSztKXV9nS== COMMENT (test code = t0qcvRXhEBKsqIN8YcLwYP 3359) Ojd4qum5EwxDCokCWvBTct zYOqpiAzlp42dKO2qG82IN 2iWSVpPcQ2CQVqfwA1Bve3 ECCdDVFtzTCwD107x6hei9 xzysDhgVM7aIupOVCfmpeu ItZ1XMzpLIPfhpjcKVp7JD trYNIbiNC4PXCahRVqD7Kj PCPcBL0yvda6VHP9MYrtML QvOvC6NYVyiMZcJAXdiXwl FUhmn450UQR8BcMsXYAfsk MjfNguwG4wKpLlOCQViHRk v8NdR9okUE5vuZHoF40riN 3oOZNlh7WcmmWpV5TallBc gYYsr0HbSMjtLNktY4OdqE GjPY4pGIDnod6nqELxqB9z bAAbeVA7iW8wKkSXqoI5mU CjS6KptSSrkN4dnrBnNQKr ttjffIuhWI6jLWL3mOdlCJ qwP6EhqVMln8TkSUJslUbw bGlhbCBjZWxscyBpcyBpZG HnhSetdZCtQHZnLEAcd0Dj cQ1bCBSmq1o7lWPrmCjxMh 2eAHAvbH75MNJXR4BrJBxd JaXkNCBuNB7eHWptj9GaM5 BxmUSdGLRqMH1tdWTmIOIa uCq6RYuhUM45hYLgVGMdy6 9ucRhyTTQ2pH7skXqxwwmb MzR4YATozuVkCNJoe4Kpw1 0aEEBia6S6DPknQpQGqLUf ZWZvcmUsIHRoZXNlIGZpbm RpbmdzIGFyZSBpbnRlcnBy ZXRlZCBhcyBhdHlwaWNhbC TrPHlrsekvr8JpgVqkuD33 miKpm0MkaLZpbFozKY8uiK 3pSVEommbvYPFbQz2qN4Fs XZZGMCNbx11lvPIiVLscrM cvlMzjz8CaIzamZIfrW9Wq XHBhcn0= CPT Code(s) (test code t9tnsIOgRALygZU4OjHeYB = 3357) Bto1cjx3QngDBnyAEsYHqi vECeqnAkvp84zVW0zJ31FX 8iZHAjSjI0TCReuwD8Dli6 XHYcVMHcsGJlI274i1dss3 xwqiGxdNW8jYbuIJTetpyh CfN4RGobVAFryhnoGBq0ZD snPDDodKF9UHPzoQCfV9Je RHAyTC8wowf8NWA8VZccLQ HcUpQ9DYSgjLXkMXHbwVlj NElhi972NIJ2AsHfUNTtkt WftUewhX9aMrMmAQV1CWCu UOxoHCmrQSNsFEr0FqPaQU H0JWT7QTpxCGYthz9= CLINICAL DATA (test x2konNKuIATvbYJ0BeMySP code = 3355) Dhv7yva0PfkCBkqELgINgb fQPpxeHdhs27qMO5mT70ZP 4mJDLhFyQ6APYkrxL2Cmw6 IZVfDTHtjDBiE779f9oqr6 bonoYpiAV9OUBpAYIsP1Oo TO7iZILnrMCoT93xsTUmML S4SILiWDEygWOnMJJaRAZ8 LPTkpABxP2vrUCWfUU3ijy fhPIqpOKapTKUlwBS4ADDu hSGpQ9UnMIAnKKfrPWBrjf h1NxXmXr2ovGFioNckGVdw YXJkXHBsYWluXGZzMjBcY2 IwAMp5TArtdf1aksBxqGGk ZVx+q2n7lVCIVLvbt3CpDV 5IRnJFRiAoRUYgNDAtNDQl JJsyQ4BWZCGbUBEcTdzlpN L8SVU3EQXmRzBhfjUzbRCl IGNhbmNlciwgXGNmMCBtYW roI41teyYfdDxtgNYohXWk VyV7f8dopuNfIOIurd7izW AipOzlx0nsVhCyFJTwfKFp sS5avELbULivhZKmHBsnsc AyTCBOQyksXGNmMVx+cmVj IY25ZLNdiOw8FNJgsrEyI2 V6QTEeijJjvSEmqcrfBAWp dnTaVVxhvAAyGH6vMDOtTm CfNfQnMCSdEpwwPuBoVI8g D6AnPQGeISRrnoGtLXDfRN EgdHJhbnNmZXIgZnJvbSBC giX6l4Eju7S7TJAttbYrcG A0bFYeUVV8KSq8ARWkp87n v4UzZFYda16bGG9bFQNnTR SXNIWgBS9rbHOxdN== SPECIMEN SOURCE (test e7xwiGPwNMWeiIQ3NuOnCN code = 3377) Rvx0rpj1XcqRNwwOXvJSlu eALhjyIkqp63hYR7sO44YO 9pTQIdGkH5JPZekrL9Bct5 RXJeNBTwvWLjJ872t6afw5 virrCkeWE0rKwnJZDdmnlq JhU1NRdyCICxmllnLLu9IU noGUReiJK2TOLciFNsU4Yw UHUcGS3akka2PHJ3XFekDI DhVqW0CIGjcPPrNGPvuWmn TAxip258AZP6PqVgJQTpvk AgmJpoyG5iWaEeAYHKJEPY IFBMRVVSQUwgRkxVSURccG FyfQ== GROSS DESCRIPTION (test i8aifLLqEDIcuLYKQRLhT9 code = 4955373017) hiqzVcPKShbRCfS9Mjpihh BVhzMZ1pGR9lgPzuzSMbtR JzLN3JFXFeVySbDZMtaOMl xvIyLxLqAOMqeGHvuLS1QI PyVC9sfeipKHsqTAbwAJXl riH5AENwrKXgL5AmMWSyRT 1jgenoANR6QBudvJ1pjiMG BqrrYq5kaFAkaKjyHpQtFx NoYXJzZXQwXGZuaWwgQXJp KZz9qH1CLvwrAOS8TBNLKa ymACUrBF0Am0nlJQSuaNBz SBJ1BSeryCFzMYKyASCrDU d0BLZoAEsijQFjLY1qhUkf MvvctQqfb6OctJRzVXygNE CxAIEkNBahUYJzGD2TGjUu ZYDfGIXhTZofDEy3QZe8PB 9WUyAiICAzMTAxNzIwNiIg ZKi1HBuyAY4BGRNdUXl4NS ftRcN4ECH0LtQwSTFtLcHd XGYgQXJpYWwgXFxmbCBcXG 6bfDkurXTiwyMNLxOLmDC0 obYgAIBVCXL4DklaQODuFI xePGLbX78do3XPs7YcGC6V GZc0fyIqpkbvxN3sGYRxly XjDTkaiKUgQ3zhTvTfASTN UUFdoIYpSLU1TPOonEtaUB FtYmVyIGZsdWlkOyBwcmVw KGEvVXT2JDS1nK2uzFwqvt AyzkAzJ7XvoEDaaY6nhebS RbdlGGTew5EyiMjaYFAeqU jnMktfP3dla7QhgTUtIQWs pNDutvadyMWqLGGyKtw1HI ZqluArkL5ocKgcTXX9fIGe bfEnREWtg97jJTWzlJlkEC PzLQXaqTC1ZSTjGqa3LVPz rQ4cJs6nrZPveZ1iRUPcQH D8YFIutG0de15tBNLaUjDv MjAyMiANClxwbGFpblxlcG ioKiLphQMgIzJfjAmwyC19 LDFygURxMHV0JA3xLXHbdm xoNQSoCSIxGXF2CCmaiC10 nQCcTMLeRANrxZXvgL7WVD OaMLC8LPvpfL88gPCyTF7Y QZUtAEX3TLXioZOiHFM4YW 1rwO6WnA== MICROSCOPIC DESCRIPTION x6xsbJQmLYMohDI5ZnAnQQ (test code = 3371) Yad9aay5AzmBYxtBAdXSuc wPPplfAirq37vEC0sG35TV 7vPOBkNqG9AFRxzoA6Orj2 NIEpEHWivSGyP609y0fle0 usqpEqrNP1xTxaDHOnhtgs RpF6ZKggLVDsdrnzKKe1AV trHCAduFR9LIQvlPHiX8Gn RIMfAI6urpw7KQZ1STxhLI HhTbK6ENLjaSIfDINoeZlu ZGede286SWG7HrOnOYOjoo SbfVfspL5vKwHrBXLNEBHc t6BmCLOvXOpxZAJ0 STATEMENT OF ADEQUACY Satisfactory (test code = 2757) SPECIAL STUDIES (test t9lesMQoRMDrp1byZPXlwW code = 3376) FuZzEwMzNcZnRuYmpcdWMx ZYguvtEaDZfwa9XyK7GlPs AwMFxhbnNpXGRlZmxhbmcx SZWcKOH3moAlEAFsGAabLW IeARxnLg4phYCatBxqLcMj WQNbd5tahmGDlbhmzCz0g7 ztJCAiRqH4zGRgVKvfO5ty pvLxhBVgD5LpoFDzeXx8p9 xkKvHgYfB2eRAlPAkeA2jz fdIkwMJfESNxDQo6sK79YA FonU4ooRSmFIwxnyOrCxH9 EPtcOHAyWpH7BLGrlYSsFO GyF8jcGCZhLTvhEATkBKwa iDHdAXI4gDbcl8R8uLZdkG WtfPueCvBiUeZvVwAGc8Iw JUa0mJtvG4DzWXLeRvT5xU QgUGFyYWdyYXBoIEZvbnQ7 qUuoceCkv77osLJzIMOvOH FdSxElmXjtRQDzRFQLf4Av hEqkZTC0lHc2eHejLicaAU G5Vuc1CO6ddo28mvk5qCyr BPVynyqcFiD1EHqqDHSvwm ldBJe1EFfxBYQdiTB8EEMq gXAnT5CrOWGrVD1nchi5MM D7EXtrMGToKuB7NOElyLAl XXHrrZwnZQkyz581RUX0Fg EjVN0jW5Vck2M5qT6taSOz SBUwyCNvUxKdJSEgme5feH DgJBxcb3TnRLW7kbV0rIBy aMMaLIUxZU73Zgarr8SrKh xue1YeA40sqUW0WKxuy6gv QU2sSgU7rmMlUTove3fqvK 4eYpB7AUfpPM1yNI6tEYLb zB4utvenMZZxYxZctlxaEN JqcHvfziRwRs0tcEjoWFK0 GZftE8sdhV4xKsC2THsnP1 sszR3oVWz2PXwidVT7AMVp zR0rSH8ywkkxb3erJPwzKF pfQQUkjbI7axQ9JGCpeYNk L7UarJ9rKGZrAU3nkypwo6 wuOBA9AEucJDXcQKN5LbXw RDXqb6Bvgoa6PaCub5MnzB QwFVemX14gc386XMIcmiRp G7hpnXNvlczucAFmtudrYB qllzJ1WUCsDYNmKYqqUZDc XGZzMjJcbGFuZzEwMzNcaG ljaFxmMVxkYmNoXGYxXGxv R2vwAlQlK2PsRDQqNrBkSR ogFBqgbWKbdGZfjWS1vN3x EY6rRZEovZEoO2KuGFNyyd UfmYVuHQK8cWRlcQTyYF3l UYjscWMvq5nxl2FpJ3moeK vzdYD9QS2fRBUcAOEpGHvx z0PbeZ4bNdtoiCIzabfjSZ xmczIyXGxhbmcxMDMzXGhp A0mmSbBhNVFjmTqlJVtiu1 NoXGYxXGNmMlxmczIyXGx0 cmNoXHBhclxwYXJccGxhaW 5eDhOzJmQpYelnEX0cNXYd O5mdaQYaKHWtBJYoG3snOp GapN3giZykIAkyLcHgKyDp WbPYs136sd4jKEWbbYLlbr PUwCQroM9sSDvrRTwcSYei mIAyFIurj2luGLKhz4n9eX XyYYUlbiGiq7gtKHxrsgXt PICcvYPicIDpKQGto01nNS gloHwadEywBDYdf5GygJwq r3DeGzSdQDsrn8HtF06ogI JvbCBzbGlkZXMgcnVuIGFs c53qw5ywATCaLxH1uQPsrU R2lCZshVJjm0LofNshLUNl x4efGKQdvb4fkfpcqUXnl8 JtlL9rhubrSApvrHQqkeKh WLXzk8a3xFEqRHQdVHNhSF otvHe8TRYkf906ty1nvvB5 nCWcUMF8NTzlXQBoZXEgfm UgZXZhbHVhdGVkXHBsYWlu XGYxXGZzMjJcbGFuZzEwMz NcaGljaFxmMVxkYmNoXGYx PLeeQ5auVmSkP3EsPDVpVx UqgQCjZ4dfdMLpCDFhXZzw XGYxXGZzMjJcbGFuZzEwMz NcaGljaFxmMVxkYmNoXGYx DNacG2lrBtKiO8SdREVuOx IgIFxwbGFpblxmMVxmczIy TEkncmzuMZKfNUqqZ9zmVf KjKWYmaJigYBjoo8WfRUKg SRMrByqnpdKoYKe2bdIqOZ BhclxwbGFpblxmMVxmczIy NMssczltUJZgKHszB4nhLz KgXKAkvMysSVjza3JfZKHc XGNmMlxmczIyIEltbXVub2 tys1VzW0medCwgeKV0SAFz J5qhnFUhaXU1RAL5mW8dMI ktejQaIUIwl8ZzNWOtYAEf IjJ0oX1fMIF3MbMWwUulFG BsYWluXGYxXGZzMjJcbGFu ZzEwMzNcaGljaFxmMVxkYm MmLRAaUKaxL2pqMhUpY7Mb UZSeQpKtlIzgOSiqUVm4Uq xwbGFpblxmMVxmczIyXGxh qedgLOAuDYirE4btHmWqON RnuIjqZAfti8PyGRJoLYYw MlxmczIyIHMgTWVkaWNhbC UHRQ01UJIdRUIayHwdsJ0r uQLGDAZplpF1a0V6PKkvIB BsUMz3AWvayaBbSHZnnW0v MVJkNN5uMCq7yfZoMAIiy6 JsKF8rLTAlpHOwQFC6YDHc m5LoI9Zit1TzDILfZTWsmw 5nplSvHzNCzNDtIDRcjm10 KIEsUB3nN8gjBDRnSXDsll OonAFrk0YlHPJnxHZ7iSDp EE2PGcGJr31dPVLzWRDPbt GcJBRljHnhqSB6diK1zR6y LiBUaGUgRkRBIGhhcyBkZX Tcpc6jarGbDPJoKIKfc6Bu uUQlkKEqnrWwY3Cgu8ToVF Lrds02ZIwzoTNqov56WT0i P7Oeh4LmfP0nPMkcYVFov1 IxcVQidIOtVTXzg7JsV1vw dkjnPPxgzFMsvI7gZUYwVX p0EETxd7GgMOTsp0MhFiUs mpIeTFYqWWCoITYumY22WU D7sGcjjIgutlAsTD8dBORk xwUhAYNtLWAzuN8jWRwjfe XgWMXdhrH0x7X3MFcmYWWt csObXforBSK1jqQtuqL6vI QjC1pjbhdyXOcdHVOts9Mc lE9faBJYiNCrp6GgaZFfjS MCfDPtVM1udrUyMU5cYAW5 ODggKENMSUEtODgpIGFzIH Y1EHfpPobqPYP2ydPpKTEy h3JiWElcN7vcT12tqTbfiF r3uJNbcKfpnHWrdCReEQUo zrZ2b1U3IWBti5RadumzBB BsYWluXGYyXGZzMjJcbGFu ZzEwMzNcaGljaFxmMlxkYm LvWWYiFUomQ8erLuCfWrLe NsleRHG7yX== Gross assessment was [facility] performed at ([facility], = 2777) Department of Pathology, [address] [place] [address], Technical component was [facility] performed at ([facility], = 2778) Department of Pathology, [address] [place] [address], Professional component [facility] was performed at ([facility], code = 2779) Department of Pathology, [address] [place] [address], [facility] Test Item Value Reference Range Interpretation Comments Case Report (test code Medical Cytology = 104) Report Case: [id number] Authorizing Provider: Minal Joy MD Collected: 10/08/2022 02:53 PM Ordering Location: [address] Received: 10/10/2022 09:36 AM Service Pathologist: Jimena Anton MD Specimen: Pleural, Left DIAGNOSIS (test code = [id number] 3220) FuZzEwMzNcZnRuYmpcdWMx IHtccnRmMVxlcGljOTYwMl ariwQiLSLtlECvO9Cfhwfq WIvlUI5hGP8sqBcreSFouG JuJKSvAmRxs9upi549bWPz g2ikFOGGtcdgkPa6oKmqY1 6sy6T0HsmxC67fiJNhTXM7 HYZjPVErfVMjEGMkGJV2JI TejWOrA9zkCBEgLD1ivehz DXzsTXioTVUueVJ5RNBvoG UjM2ZhCFEjKWzfOXCysji3 TdKzBn7jxXIrrCrjFNztIW JkXHBsYWluXGZzMjAgTEVG VCBQTEVVUkFMIEZMVUlEIC vVYKUTI6WJWzGyYN2RJJRT MQjgWatTJ8mxDhphbU1nMM OgED1pZGFESpAlNTPRZRkB HQbtF1XKCPXtFIQAU6NRS2 dZROQbVt5VDF4EWYeAHaKY P9flBHQGALXMU02VSV8DTS lpDBU5z8nhbUCgGDVcjDPt ODAwMFxhbnNpXGRlZmxhbm mkOBZoAVO4iqTsNDRvNVxm OMJmLBliRt8gaAHvuQpzGw QlQCXpi5jtvlTRrnxgeRt8 p6dhOLKgKsM3qKLcIHwrY0 fnbqDweHOwVPRiFXs8dO92 FXAneO3jyMElBLmbceQeJc Z6PTtwMRTtKaW7UNGptIMg BMQuL1tlPRLiBUksBDXvQL vulAVkMLM8yAugw7U4wMKb aGVldHtcZjBcZnMyMiBOb3 FlTTn3rKurK4XlYVWySwU5 bHQgUGFyYWdyYXBoIEZvbn W2bA27YRvwmsE8rXPlc4Du e29xy338cQ1ooSUbDRG1EN PtNYXhoSTjUAMyAIK4DKNe pAGnH3hdRFNzNK9qonytMF qfUGirRUUgaQX2XSVhqUKw E4ItWMUnNLfkJNKoyno3Va ZuMv6wtYZblZsfJLraf1hq n8ywtLAiHmx6EKNpZdPtCc fkDQptc9Jqj8hzHQWlst3l VSF6pDMkcTjya8U0pTJpBB DxlSRiWBQeNH0xoOZoHGTb mX9ppunkWRBaDnIhrbpjHU OpnTgjotMzBd7uzFugOTJ6 XXiuJ6svrJ5aZvW8YOszF4 itsB8pZCl9MYzdHHVtrOW4 hnO0TBPceUMvF5KwqF0wRS RrUU4knjo0l5yxDHT6CIit JQCcGxX7hsK5GYFosAFlON CqbSaqAPxjd906XTG6OsQp KRWpy7XnE8IcfWynB72jeB uuX02mLULvcLwegQ1jwZsa mA2aJbJhSnJdEQmuoGarYG 9cZNHiT3gfqAPvAZIvANQv B3lnDrWgeP3srUqaBXhvmg HiSZJyPza5VZBahRMmQGQj Zdg5JEVzPCLoY27qpzngAL N7aL0xo0mxz3EgPQoyIWS2 KYKph63rTNzodiH0QQdgJy 08DJekILH1OLbjJZV4hH== COMMENT (test code = b2xccYPlKJQdyTK5RoJdPW 7589) Ure4mym0AftLCvwQYhSVfi oJMgtzRxqn18sPS1bR78EX 0gCPNbWeR2VOYogvI1Bil8 ZXWgQYNlpBVuX496x9cyb1 avdaCsnNP9mAykSNTxsmfs PfX3RCeeUBLnxtnrRPo2VI jjWLNccBS5YADcvESqD4Ni LBBsWW1rzpj7WYA8LAnkKX AlZeS2PQFbpSJjLWOwxHya AWjkb840KZZ1CaJiJQYctr ZoyPmfkQ4xFwUwJXHMnTWc y0JqY5woTH5mdRTgE15kgT 7vYDHps2YplaZkW8XrbyHk uSBwe2TdVImeNBvcQ9FlhH ChPO7oTCZyfv8fhKDzaQ8s wJOqwLG1tT4iOmYXnrN5uN QiD9LllCGjjF6kgcHpJDKj pmuopYvtYI3zECT9hCjjYD vlC9YuyIPnc7LnYXNjkPjr bGlhbCBjZWxscyBpcyBpZG NxdFiefBLcINTnAWIts2Xp tY9oHZUsh4d5eLMsnFgvOz 9eDHAfuY95QQLSP2SbAWoe IcGcUBArYB0dTBpom9RiA5 MucZLjPKCsIX8qdTPcJYMi bYu5YSdyBF34dNCqDCUro5 1fvVvxGKK0qI5xiWnnzcrj GzE4VJSasaUuLSJnk2Kzd8 7gPJAir9I7KMdlFsJWiKGf ZWZvcmUsIHRoZXNlIGZpbm RpbmdzIGFyZSBpbnRlcnBy ZXRlZCBhcyBhdHlwaWNhbC CiJWxfljncq3YpcYpxuV34 yhYsd1JrcTAkaUjvTD9zbP 5oMYHpvgvnERPvMd0fD6Ky NKUUSMYuw17btAPkBNrffL txuNeck1LzFjpcNGvoT7Dg XHBhcn0= CPT Code(s) (test code u4ejnZLgEHItsUV6NvWdAT = 3357) Igj7gyj8YrzESxkVGzIUqc mHPgsnNdjz47aKY7tO65NL 8nVGFpXsZ6TSZhwiJ4Ubt0 UDHrXMVemDUgA890t6edl3 dlfxAvjGU5kZxwXNCxlrfo IrP6UJqoXWPpzxfaQUx0ES aaUGZxxIQ2MHXrzUOtC2Lg MRYfYB0ufpe3JOB0MVdpZL AaIvQ5KYSleXAyUDWpwQqn QZein107IRV4WqWjNVWsst FmhHwkyA4xFlZoPPC8EWFr HSnzZSzoWAFtFDi1XmIvRB S9BWL7ZJsfJMCjfr7= CLINICAL DATA (test z4cgaBGkYHKowHT0NaNzGI code = 3358) Iao4cgn8CaaRTbiIYeQMse bWSuwkZxnq37lQB1cE09SL 8pPBNlJaG4UZApbeK0Vda3 BDVuKSGclEHdG160d1xzv5 zadkOwvMX4MCGlDBLmH3Vj CZ3tBHYxdVYxX37buYNtRC L9PARjIDQibQGnBYVnDXZ2 EDEokQKoO4nuNYGkGY0jij lfVOyiQXsmUOQwyQX3NWNh fLFfL4RjKWFqTVruAKLtmr d5GcUeDc0yfDYbuUlkIOtl YXJkXHBsYWluXGZzMjBcY2 NiLSu7DAvkwi3wwdKbdRAm ZVx+l8j1jTSAOSlzp3DbMG 5IRnJFRiAoRUYgNDAtNDQl QHckK6PGIRYkDQOrGjuqsQ F4BWV3JHBiWwDumbZbmEHv IGNhbmNlciwgXGNmMCBtYW pdG25bcdNugTjfpCGyoYFc KeK1p1iiatYwDRSgzv2auT KuhVsnv9isKzIcBOHvkJLo pY3jxIQzLFdhjBYmKWllqr AyTCBOQyksXGNmMVx+cmVj EH15XYHawFj8EWFtnmPiY9 G9SPHtgkMlvGSxubbiAPEq toLaYLnigORuET5xISXoJq IjLeZyLBGsGsppPlNjCZ2s B2RfWISnDWRbwpUoPPHaVT EgdHJhbnNmZXIgZnJvbSBC zpM5j4Hml3D9FAGeylTopV E2eAEtCPF9LYt5DAAul22k i0LbDMJzd94oAR3jRRRhOS LSBBWgRF8qeGVbcM== SPECIMEN SOURCE (test k0nzdNLpMIVzyPN7WvQvAN code = 3377) Pov5kit5QpdQWedOTiFBrd yHEialSrgg16pFQ5zA76XL 3uIHTiMoI6CPYmpuI3Xyo6 UYChYAYydTFcU662q1ujm6 glacYvkXV8qCesVHNnvzqf ExF0EOnyNKWmbbaoNHg1SP zoSMCncBW9DFYzvYWjK9Qu WSImDL7oxpr4HJN8KHjiIT EuWkU5YLDjiJCfZRNakRrj KBiop344TWN5DwWjUEUksx EyrRnhcD2kWzHuMOFPWHGN IFBMRVVSQUwgRkxVSURccG FyfQ== GROSS DESCRIPTION (test o1epbYZeSHMxqCLBXOLjG5 code = 0991211153) lzvbSpYFVhmYGyC3Ijwxst ZWcnZR1hPB1hvOrjkSTjyB KxYH5PRLDsTjUfSSTprHAg ogBmToQoUKWnuJWaiFM0PH CzCF9zrtdsXNruHQfnOTYa qrU2WBCjhKWpO0QxKSJrZF 7indzhSPM0LArtvP9qycYA OsekIe4lwBCnyKdfObIyNf NoYXJzZXQwXGZuaWwgQXJp HBa2aR1YSrdgKHV6BQRBFy ejWKVcRX7Oa3oaXMUutHRj KLN1NUxpuENbLELvMNKfMV j4BQDhHIgixKAqDU4gbOig CtmjrUwps3CtrSMuHBhwSC ZoDICvEFwzUCKkVI6IJmSi OUEiJYNjUOfkQJi3HBs2SY 9WUyAiICAzMTAxNzIwNiIg BMi5FTjaVB4RRYGlOFi5OL zfKiH4KCZ2MhJiNVAtJcQo XGYgQXJpYWwgXFxmbCBcXG 3dlPyxeFSarsGFDaKSjQO6 vaMnEZGXBQQ2EjyvNHCqTH uwJJLbX77xy6ENg4IyTD0X LLn8lgZxlkkbtK6aKBXpes HhVXmryADcZ1caYrTsJIIP MDZlbCTyWBK5NZByjAsrQO FtYmVyIGZsdWlkOyBwcmVw BRYdHVL8OUB6eP7mrIbagi QzaiOmA1EghPPpzB7vdyyJ SegyLEFjf8XggXouMWAtfM amZgnbS1qxq5NbnSDkKLSi dDVefbfsqEGxFDVkSxt1OX PpnnSntU9yoCqnOMT4zYWp tsWcNTLqp29mLVJylUqtCC SmVSSduKY0QTPsYxu5ONYr yN9bIf8ydXZuhG1eMOZcTS X0BSCcxP2ob00wOTJcJpAi MjAyMiANClxwbGFpblxlcG keZnXvgSEzSrMorHofcS60 MJXzgAYwOXS3PQ3hFENavs glBDHmPKZgAEN4PGfekO55 aJElUAKkFDZopPYndF1JQA PuCLL5BDjcaY94yFKsNZ7X JLWhSYR6CXIeeQWlIDB6XB 7yaJ1VgZ== MICROSCOPIC DESCRIPTION o1vvpLIcLPLjrWF4XjOjMK (test code = 3371) Fya4kdv6ZliLLrvJQtSByz uIJuqmCxnr17fKQ7eQ12YW 9wGWXoPfN6AMIipsF4Qmh7 TCJdEIXjaQAkG481i6xiy4 xtmtGpmRL6xOxoHSWnofef NqR1NKdtGCUiijioTOx0FY dhCOSsvUH3UWMezJQrU7Fw XSJoBK8ihlg4WDM0JYigFM GxVxB1BKIlcVVdOVQehRcp JJjcb371XHG2WqHyWNUwgs FkqGepwM0eXiMqGURKXPPm d7VdRZPzEPbrOFH1 STATEMENT OF ADEQUACY Satisfactory (test code = 2757) SPECIAL STUDIES (test y7iziIYqBROta6vjRKFstW code = 3376) FuZzEwMzNcZnRuYmpcdWMx AQchozYuEIude3QsA2JvBq AwMFxhbnNpXGRlZmxhbmcx PIVwTWP9tpUfCJUdZMljIQ WsXMitVg5yfJTdmKdaHdBb GGEeg2kfjdGLevopxWv2f0 gpEZUwYqO4aSItYXrlL4xn gxQgrUXqX4TixDVqbEx9o9 exDsJxAhW2dREqLBgnV9pu anOtyFJnDLLnPVx0yO35ZA IskG3wpHZzYFhkmsGrSoX4 XHmjJRMbXwN8KEZtdLFzYI CjN0yeRWLjRHmiQMGpORpx fJMgDPA9zAsfa0T3tZEjoL LznKxfUgSmQgAiOqQGx1Ot FWt2cQazI3YvEVTpYmL0zV QgUGFyYWdyYXBoIEZvbnQ7 jHekqzXrw75vzBEfDJFoXT IjUaCbyWpvZTLlJISLa2Bu dEsnVJT5cQl6oLjlUgvdKZ Z8Bns8ZH0pxd03cvp1uVan WQScanpxHdD6ZRsqSFAkue dmRYe8KGufWRHevWD7CFDk cCMhR5NaFLJiPC9gkjd5HP J5SFllHRUaJrH3GCFcoYOw CTIniXzcWTokk983AWY5Mh IuIP4rQ5Ftr8C8oX4rbBOk HAFfpBRuIoLhPLWicv6bkI AkMAwik2QvGQP0dtE6fMHj vCKeAZDbMX27Enwgv1QmLl sgd8NcZ37roPG3SPcsj5pt CQ8tTvG7taRxCZdiv6mbrY 2iMfG0LJenWK2wVL9gCNBj mY2eaazmPASaGeJgscrpJI LnlBqgueStBn8zaBqcTQV2 BZwvP3nbwN8xHpX4TPrkE9 idcT3hBTp7MDvjiFP1CEFl wP9jFZ2wbjzgv9vsHJorTH rwHUStjpY7ngA2HFRixPSg Q1ScdS5lUEWiQP9ocbunq3 otSZF5DEvtTSYkSED6FhMk OKYvl2Tqbuf3OpRyd1HyiG FmUUpiE46ub219LWTbkeBe K1iiiHSuosbvkZKbopqtPV ixqtN6HVEyMQOtWPkcTEJq XGZzMjJcbGFuZzEwMzNcaG ljaFxmMVxkYmNoXGYxXGxv Z3dkWiHiO9RnFQTcCaMuDY huFHnqzHVigEHomAM6yX3t GY6mUAIarHKgI7XjRXZlcu CrlZLpEQD5vBIgcMItFH6u FKtdiSRzy0xhi5DwM4clzX iuxVR3NI1iVCMyTVErQHad j6EutZ8tHjosrYBbjqneLC xmczIyXGxhbmcxMDMzXGhp D4nsEoBiCWCanLopIAgqp2 NoXGYxXGNmMlxmczIyXGx0 cmNoXHBhclxwYXJccGxhaW 9mVlYzCiKwQovdTP7nKWEk O6nvoLLlXDFrEVAdK3nlTc KdzZ0igVktOFrnZwSbNqCo IzFAk715cb0hQLUerAOsbv CZvFKeuX1eBJogVOcpPPxn hTXzCJydo4azJWGdi5w0pF ArHBAiwwPob4acDYjusfBp QLBogSHnaHPzMOVjf71sVV ynnAvscVgjMJNwm8WghWgj m7IcHbHyXJyqf3NyT72lvM JvbCBzbGlkZXMgcnVuIGFs w39hb1tsMPFcViL9jWCqnX R6fDZnzRPqu6EkfXojOKFc u6xfNXUxrf4yzqmefASyp2 SjuR5btusfDEeqyLRdivTu ELNte2w0xICgMBRdZOEyBT wrbMs0GSXee403bq6yhvU7 zSMfJSD2HIiwVIQuONBsdq UgZXZhbHVhdGVkXHBsYWlu XGYxXGZzMjJcbGFuZzEwMz NcaGljaFxmMVxkYmNoXGYx VQqcT7unNgDxG3UpOKAuDz WykZQsJ6vyyPPlCIJwKTso XGYxXGZzMjJcbGFuZzEwMz NcaGljaFxmMVxkYmNoXGYx USyyQ7wlWuPnI4RzWNExUx IgIFxwbGFpblxmMVxmczIy FKxvvzamLSStGHkrD8teIj AoPLQsoJlhQVetk6FbSQTr USAaBmginoSoXZu7ktXwST BhclxwbGFpblxmMVxmczIy RVnaobrwSQSdTJdlL6jcUy ZfMLKcnEwqWMyii9QbAOCw XGNmMlxmczIyIEltbXVub2 kdr9KcV6vddFvyoNS4BYOu T6osiQWnoKP6DED8wZ4tUV mnwnKpKJLnn6NkUPJrUSTl QnC6xN2zGSU3JjWIySpjTA BsYWluXGYxXGZzMjJcbGFu ZzEwMzNcaGljaFxmMVxkYm XhVADiSIgbE8ttKfYuK5Cr NVFbXqOiwTdcFBykATt7Ds xwbGFpblxmMVxmczIyXGxh udceGQAiPErrW0qyYgFiBP LjaFkdQNepg4CeTARmXEYc MlxmczIyIHMgTWVkaWNhbC OEST57DJWsYFJibIclyW0r xTATGMCjgeU5u3R5ZDihSF UjNTc5HYfqhrPxUFMjvY4h IDEgKI5aSMs8trCmDPOdt8 EtMY2yMMEfyBXsWMK2GUKl g4RbE1Fxg5BwLQDfGIFxnf 1ffqLlCdFDoBNmKDPngu08 IPOkMX9kS2axCHFxNQKlin ZclKSus6HqNUHetYO2bHWr SF7BIfXLz47kKPRtCDOJqs XtGVLlxHqqvNN6hqR8hV1y LiBUaGUgRkRBIGhhcyBkZX Atbc4lqdUcXEMcSIYvq4Ht zFYngMQebxDyZ4Fig5PsKE Nwxs36FKkudYKhjh33GP8c G2Lje2JaiY9zKUzoSTLrv6 LddQJwxMNpAPJmr6RmQ4mf mjiuKNrjdMNnmQ0mYCBjIP o8DUYen9FuBOEgw4NzVjKs hnNyVRKjGLPwHVDjaA16KB N5uIpkqQadncDhYH5wWWIu jlEkREVcNETccE6vOLwvft KkTPBiayS5r3C1FXsfJPAx wdKrScxsABL3maFoepY3oG EvG0utnfzkUDopNUZlt9Lh iA3qxUCOwHWyy0BjbTCuwO UQsNRyBW2llhCmNL3mVEH5 ODggKENMSUEtODgpIGFzIH J0OCtgZhhcXNS8psNjONQa e8HbCTrtU1fnO25ewVwfsA p6yNLdsVmdyHXotWTyXRBs liZ1k1H9DFDok0AsljkiTA BsYWluXGYyXGZzMjJcbGFu ZzEwMzNcaGljaFxmMlxkYm YpELIzTBefO0qbEhObMtBe VyztQHS7tA== Gross assessment was [facility] performed at ([facility], = 2777) Department of Pathology, [address] [place] [address], Technical component was [facility] performed at ([facility], = 2778) Department of Pathology, [address] [place] [address], Professional component [facility]. ke's was performed at ([facility], code = 2779) Department of Pathology, [address] [place] [address], [facility] Test Item Value Reference Range Interpretation Comments Case Report (test code Medical Cytology = 104) Report Case: [id number] Authorizing Provider: Minal Joy MD Collected: 10/08/2022 02:53 PM Ordering Location: [address] Received: 10/10/2022 09:36 AM Service Pathologist: Jimena Anton MD Specimen: Pleural, Left DIAGNOSIS (test code = [id number] 3220) FuZzEwMzNcZnRuYmpcdWMx IHtccnRmMVxlcGljOTYwMl latdArGEHiaKAlV5Wojtgy HXwvBD4gYO7ajUzcmWYauA RiRGMdQyZdg7bag046fEBc v4oxCARRrobkwQn1qCtbA3 6ly2H7GbptU94wjJOoEVG5 JCDpXZKqnFMaJPKqYKQ4TT DuzLVeG2snZFNaNZ9jgfoz DArqUApnHRAynGJ5SPDqdW LfX3AaJEJbZDkxUCWrvea1 JiLwKs6qaMWhaVqyWWgaDX JkXHBsYWluXGZzMjAgTEVG VCBQTEVVUkFMIEZMVUlEIC bXTONGW2TNFgIsEX8XGKUP VDfiXcnEU8ihPdyggG7mTT CrUR4wRZEXOmEpGCWKFXfE LDobY8LOQYXrUIBND3CWW3 cNNIAcMd2VLQ3FNNlIHtPM W3egAPNYHZXPB07CSD4VXD gfEXQ4r0wuoEQeHEFzrMSs ODAwMFxhbnNpXGRlZmxhbm nrMGIqHVU2irGmNDOyBTuo SRQwKRoyXn2fbUDccUgrSy TjUBEfv0ivfiYAjlbjrHw9 m6sjEDGqHrM9cDPpYQuaX8 pwiaWhpFUfEFDhBSi3gW60 MPZlkL3ifPAzFZatqkNeAp T1PYfpFPYaIvR7EYEanWHd EHJtR6zxDZFoAJjkPAXdAV velCLwCWS3lAjmo1R1mELd aGVldHtcZjBcZnMyMiBOb3 HyZXq7fKxaV8JyLPJlWlO7 bHQgUGFyYWdyYXBoIEZvbn U1vS37VQvqooZ6oVKbb5Ct m54cx515wZ2yyWYwVZR7GX NeAXHrfNFhNYQsIOQ6NWUz pVYeT9dwDVKfII4umdxiTJ lnMGytRUSuiIJ3IIPgaCDa Z6YhGDGiTVlmRWQhvvv9Ou PlCa3crEPfnMvnIDayd2zk e6oxbABpJuf8BVTiFiEsXw nzFPndj1Gnb6tcHIXiiv1k FZU3xXUqxVzjw7D4gMOgNB NzwMZjOCUyZC8qmAAhUPVo fW3qzzdyEKXfKwDjjrbnFU YcsHvstrIcVa3fbYebPQO7 AXzfN6evpW6tBsL7GOeeB0 wuuW1zUBs1EHbtKSKasKY7 zaB8MMGkaGHmI1BxmQ0rBB QwGD5ttad5g5ozNKO2TSwm FEGlClV2xiQ7YYTsrISxER JsfFjkXDvzn823DYS2TaXf KTUdu0JgI5DwiEmxN86faW coU30lHPUvlQfseW0zpBsx aI7oErZzEcHyHJvumOsvEV 8xXRJiB6jgkAHsYZKiSAFv N6ajAaGalW6wnTjeEEnhne ZnZRAfSth4OIIoyWQhAARq Caq4AKJqVLZeR89awetgUT B8dO3nc4wze4VlGYzkCYY7 OLNoy48jOOegzuG3YXxqNz 28GZczCTE4LSdzENB7xW== COMMENT (test code = q3vumIPvQLQngOF2EqVpJK 8999) Ljc9pzb7PooNAxvSJyXYes hDJychEfgj60iRH0eS75QW 7cDKIuTkR6VGTycnT9Nxl2 TNVoNBLrkTLzO081l0esf4 jkmoJeoCJ1rCefCDSqqjyn RpW0SIibGXHpmykiOLa2BK ujDWTxgWS5CZZdgROdT1Bg XQAjPF0pzbu4ISF2GFitOK TsWuO5ZELmdMZpLZJbfAsd SHtqr762TGI5NjPfENWput OsqLupeG8jZlMnQTTXtWLs r2ZuZ1orME4wsCYvM82ajU 9kBEAoa4AvhzSeV1KycsVr rTPum7NpMQmfROauM0MqgD PqBX2eOGUghc1fcUDqvW7q pLWqgAK9iP0gCbJKhnU1dE WvW3ClnQFqhJ7ebdQoKVEo iweetTyuVG0fQDG4hTeqOR etW7ZswPYzx7MvNXKsyOtl bGlhbCBjZWxscyBpcyBpZG NpwNdumAKiGPUuJETdf4Cs rA3tNHOkz4b6gZRnqOivEx 2eQLJhrC10RVSHO1EsXKyj AeMvXBYbQL4eUTqfh5IzY5 TfkZVaSOYaSP8ltUKpRQTw hBf8QUegSX55bFGpPNLke4 6zrOpyTSY2iY4ljIovjbab XwY1ARUdecFhOQZvj7Azq9 9yOSAlq7B4LZxcYfSMkZGm ZWZvcmUsIHRoZXNlIGZpbm RpbmdzIGFyZSBpbnRlcnBy ZXRlZCBhcyBhdHlwaWNhbC ObJQkzhswoz9WalLfkwV27 kbRlm3ZvxMVthWerDN2fkC 5aILSvkrsfHYBoXf7bL4Vd EEGLOYGqq46zhMGsBYwmgQ lyoKgqq3OrRcvyPSkhA2Cq XHBhcn0= CPT Code(s) (test code d1lpbCGfISAsfBI3HnAaOC = 3357) Qrl8nfz3QhlLVrdTHdRHtq vZFwciRidh09pJK6tP10FK 2vQXDcIsO1HGQefqI6Hss3 USNgMPJyeBPoR265n8syp6 xydlBzfNX0tTguVGQkpbww SwM6CKxnNTNpjpzvMEh7IF hcWEPejBV9MWFaiORiZ3Zy ESVmAG5wymq0THI1DHrlNZ ObQtS6BZAvcCGiQAZpdTcf NXqoa287SSJ5WtIsPLAidr TkqQuqbY4zVmMsEOO1YBQb KYcfGXybYYFxTPj9QnBkOD C0NRR4JDazGGFzhb3= CLINICAL DATA (test j4svjZWjDJMcnCU4IdTgBD code = 3358) Zzn6ykk6VeuTUylWGfMPzv rMWtcvFuyq15qDM1vI35VC 2wQTSvYrC9LNVjcgK3Dkk0 RCYyORAptBPjL315x1brz9 ttnlKzxZF6YGPuHNPcI4Re DC8aQTVkcWHgZ57tlXBpJV I5WHPzQXNceBGaXICkGAP7 LXXkjWXbU2afQIUvFZ9hwg roCOgxBOsfXBGptAZ8PXYr gVGfC0RxDXIeGSyaEOWobq o2GyFuRx1knLVbdFtgQOnw YXJkXHBsYWluXGZzMjBcY2 AlAXc1FYrxyi9eepZsxLRs ZVx+q1l6uAWMADekf6ZyKM 5IRnJFRiAoRUYgNDAtNDQl JAaxJ2UICKNnNIDgIiezxP A0TYR9KLWpQjVyncWxqUDl IGNhbmNlciwgXGNmMCBtYW tjX16yvfQfgYtabUJwxIYm XzN9p3uuymEhNPTedt7bmX OxzLalz0xjJaDhSGQaiYBk pG8zkLUlMQmoeRRvFJqipi AyTCBOQyksXGNmMVx+cmVj CU54JRVtmOc7XQIetxHyQ1 L4FNAzfyEkfPHlajerMDMn gkSkLBhycVWeLY2vOQTvKd UhHlBiFPFcUbazLaUcLO1j U8AvJXLeKWQxsqZbUKGeNB EgdHJhbnNmZXIgZnJvbSBC eiK7u5Tsn3V0QTSngaQiaP N8oFLzZLN1WQk3GURyx56k i8GrRZAca91zCY4vBHXqTJ NJGNKtOE2hfEJiiP== SPECIMEN SOURCE (test i3vqbVPwHGNrvKF9AvFwOO code = 3377) Dai3ogc2UbvUCvuJXqHDow wGCwwkGsmj80tMC0cB21SE 7aQAOhQoH9OTLgfxM9Iqf9 JORoKVBuaCDqI544d9uit4 aozlYviNH9dJvwHOQpnpyl ChS4PQnjWXButmkwVOd2NJ bhSFAikQP0KEXbgGAdU9Lm HPRsAS8tgml3THH5KHpsWT HwLnR1RQIsbHTlAXVdmTeu DSmsj120SKQ3VgFkHXErsa DywTyieF7pNgIgRVQFZXOJ IFBMRVVSQUwgRkxVSURccG FyfQ== GROSS DESCRIPTION (test m6loeTGxKZXprFAELRRoB3 code = [id number]) bmqsGyINPyfBNlM8Qehgva RFrvXZ2xKG4pvArgxLCsnV WtYL6YRSGdMbVtNSGvtOEc diOiVbUmQJPwsBEzlVI7OX UxFG8yxkajHEtaFUfeLGMk qlY5HKGljWEbX0NoCVLlUW 5hzwgrIML5QOumkC7qzyXQ VpukLc6dkMLojAirEuHfSl NoYXJzZXQwXGZuaWwgQXJp APh7sD7RExreZTB8TAVQNj znWVSvGO1Oo4nzBMTgeGNz LRL3GBrgnTZbPRNcZMYzXB h4NCHjTHiwrSExKG4niZqy OjecjJnii8QkiEWyGFhkMG TbRXKsMGrgZFIqBQ0HGxVn ZBMiUDPtVQvwJFy1OGw2NZ 9WUyAiICAzMTAxNzIwNiIg SMg9TAooKS6XDOVsQWp5TY ycKmS2MID3ZoHcVVZyGbRk XGYgQXJpYWwgXFxmbCBcXG 2beUnkxTGiwjFKYcIRhTP4 zzZtFMIJYGI8SglzTUEqWF cmQWOlR84dw3JZn0FaMW8T VXf2yiOkhniqoO4sIAPgug OaUMqcdPUkN1vkUrVpESCZ QOQnpPIjDXI3FCXzaVhxHZ FtYmVyIGZsdWlkOyBwcmVw YDMgPEO0FDP8cU6xmAajow BlmhNmO7BkqQLbyV5smygA CpipROMpe9WciGopLUBraA lkCcwjP9ops6VbgCKdHKAy nTUythuwjQDnGZLvRej7ER YoieGmeG4gbOuiCJC0qNQr zxEzNVWof47vAFOasKpgVG TxYRNmyYF4EBTmXdp8YITo xA7nXi5egRCahS5jVBZbUR N3OECahV3vp78fHKWwWqDa MjAyMiANClxwbGFpblxlcG ijTeYudYJpZrBkzKciiJ02 WPZfdXAbMHW6MK0iKKMyay grWIUvXRRaSGS0OEaojP66 tQSkRUEnQLMnqJOtgP4MFB IcWLG8EBncaV98oXHsEZ7V XBCaIPH0USGfxFApEHP6CB 5bjM5OcR== MICROSCOPIC DESCRIPTION z4hseQFpRFUpcAR5JzDyOK (test code = 3371) Efa0fjy0WumBUvoVXwAOyp wZUwfeYira50tKY3zP06LK 4kNNSbAkU2VZUgxnO8Bje9 LSVuWUVkeNKfZ966w3hoc5 nwwhJzpJY4pMukMXAfpoqg XdM5LHhbLEPpbxbtXZe2KA nqPLUzpFT4FYKtyTDpA5Kx WZUwDS6ocyz2JOB4UIghLE TbScN2LFXokWYdEDMxlSsz RGqyy525SIM7MoPpKDDsaq PghOsrvD3uHaHrULUGBWGk j1UlVPVnAMdlYOT2 STATEMENT OF ADEQUACY Satisfactory (test code = 2757) SPECIAL STUDIES (test u5fesRQsXZLmj9dvTCLvzX code = 3376) FuZzEwMzNcZnRuYmpcdWMx CCjmuoWjRVlml6LjD5VwZe AwMFxhbnNpXGRlZmxhbmcx HIKpKBX0fxUsRAJtXPfwSX OhNHfcKy1krHXwrAbkGqUt QFDhj8daerKGjqppgXk0c6 mmJSEoVoQ1wIUfFGpvW4tc pkGmnCWlB7HeuZPmjJc3d1 muYmUbNzM4rKAsUXcqU1xz scAbhOFiKCQySKi5xL52MR AsbG2roYPjSLzrgaYkGgP8 CPkeTBEvYnQ7UNKkjJPyNH ZoJ9pzULZlNBuyOQLrPKvt pJUaUFJ6sJuue0X3nGXawS IycPlrNqHbYhPrEdJVo7Hc KTo3nWqsZ7ZbZTVnYeF4pZ QgUGFyYWdyYXBoIEZvbnQ7 dVdszoGxk24ltHQgLPOnGR FdPrPhwVpvWHFmINSVo9Ba gVieUUU7pUb2mWrvYiatEY E6Nra7TI9kfi41yde4hRfb WOUbafmlTfD5AFuyCRGbet pbVUv7LUooIGNkjXL3POHn vLFxJ6HqAIYiRF0ylkm7PO T0TEpuKYFvSbU1AKWtqVTv RSOpdKicSZdmi221DKG9Iw WbFA6bB0Qkn4K9pZ3lnMZj YLZqmDQnYfUqVLJowe5qoI KhGGyem2MfSIV8iwY9hIDz vFFkPQBxVL05Taqcx3RaId nsp4DtI21bfOA1IQikl0gq OE5gKcP3jfSiCDscu6wbtQ 8zLfJ8TGyvUB2bAK8eUQQg tD3zzxwnQXMxMzWxanvvAN JtaLjvcyQuWp1nhCfcIHD6 NZovP1lszG0qKvA6ZSwtA3 hejF8sYWb2OOpbsCA3GAKn xP1hFZ1owvoqu5hvBHvwRG dmOKMwhyC4qbG5UMIdeTDx X4GwmP6aMUIcMS2phfmys0 flLXB4TDsoDCCwDFE4HgEx SLAwh6Zchlf8KhHye6GyaJ EfXAviX66sv078IQWhyuWy O1aikWDmhfgqzMAtlewvOD akrrF4REJoRLJhGQdnIKSe XGZzMjJcbGFuZzEwMzNcaG ljaFxmMVxkYmNoXGYxXGxv E8zbThAfW3HrQPLhIfYlXI aqUPadiRCanLFzgGD4xO1s YZ9bSRWalPYeQ9HkVBPhql CnjTMcEHA2bHGujNAzXN7o SQhewVEyz0tnd1UeJ0pgqA lzsLA3OD9lNJXjLYQoLZgz v3BxsI8zQlxquVPkgmxpAH xmczIyXGxhbmcxMDMzXGhp Y3oaOuYjXXOhkRfxQCofg5 NoXGYxXGNmMlxmczIyXGx0 cmNoXHBhclxwYXJccGxhaW 0tSkDxBnXkIpxeVD7jLDBl Q4wrjGKzENDoJMYlY8znEo GoaY6xkVhzDQzhWzQuXhGs UsHYo918eh6sEZIhmPUsey JLcTEwwY7rDBtmIXipARay rCZnSKqzk4bxCHLoa4d5wI QbJFOhhsGuh5gtQVwgxxPn DFYqkGPouBRpQNAqa95eCK cirUmqnLjiCNNsl5AxoTvm i9YaNhJpOFdur0QaQ31rnQ JvbCBzbGlkZXMgcnVuIGFs u17bq1xrYDMxLiB1sMDmoU I1xZIuxQByv6RelHiiYLSo y1xjBISndd2grpcljNBfz0 XjfX3crlbhJMsidOLavlEw YMIxs0f7yMYrHUMiYLOwKE sbyKv1DKQwd839ot1vgiC7 eCWvRFF9XOonHMEiJZWxae UgZXZhbHVhdGVkXHBsYWlu XGYxXGZzMjJcbGFuZzEwMz NcaGljaFxmMVxkYmNoXGYx ZNicD2ukWiSaP3UuVWSyJx TlfIGpJ6xzwMIbELItQZsx XGYxXGZzMjJcbGFuZzEwMz NcaGljaFxmMVxkYmNoXGYx KTauB3qsFwDlK8SlWNZlGw IgIFxwbGFpblxmMVxmczIy XUvlswibKLSxNGoeP8zdOy FjBORguVrmAAure7VzHLBe NEDcCaacbxDeEIa9foGuSH BhclxwbGFpblxmMVxmczIy PRqafiffWLZjYWmuI0jxSf XbUKBjkJeoDBmtb0IiKKMg XGNmMlxmczIyIEltbXVub2 hvj0NeZ2rnaXudxKZ9MNKl X1qojYJjqPU3VWC3xX1uVK jaevCmZWAjb3XeFECkSYLj NgC5bT8zXBE2CaQClMyvSX BsYWluXGYxXGZzMjJcbGFu ZzEwMzNcaGljaFxmMVxkYm HlRUBjZObeJ6upDbLjA4Ny DQVmTvFotWmcYOyyIRq8Nx xwbGFpblxmMVxmczIyXGxh vppbUSAvISkyU6qhHbMbNH LtvSbwPIgjx6TiAVVbRWKg MlxmczIyIHMgTWVkaWNhbC VIVP05EZPlLULmeHrjbR8f bUBBTVVzukH8z0C4YVjbYE EhZBu2ZSluauWzVLUfnC6y BBFfYN9qRCx9xoIvKCThl4 FoEZ8cPCWzxALcKFS0ZJXp y5IqS0Gyj3RqBTFoVWIann 7hfiOuLeEKnIFoVSPyjc37 YGXwGX7yL2qzRPVgMZRosy BceJRjn1MwGLUkfBG9qMCh IK6KNuFAm66zWVWaBWRStn YbWTUgbYlnrQS8rtF5cJ3r LiBUaGUgRkRBIGhhcyBkZX Oqfp4ipbWqXZEmVYIai9Wi eLEzjOMwnjEwW7Fqv0McEE Yeil37EOuvbZOyok61LU3q D9Cuj5SkzM4sKYfbMZWyu7 PibRUroZJzWBZzg5VbR3dd ubtgGUluzXTugM2vELGmNQ c0GSDwc2RrTRSfn1RxZpEo jdAzKNPvUTBzOINstH89NM J2mQrbcJvbkyStTI4dEDMw ruUoFBMjRQAujN2eSTtzpu XwWWRtkqH8k3P0JJjfXPDd mbPcWfatTQQ8orNtpbQ0eH HvQ6zrfnzuQNppQBNmt4Rt mO0jjNWCqVXna5GswQGtiF RXbFBiWA4qxwFjQX8bEZY0 ODggKENMSUEtODgpIGFzIH S2EAuvExdzAYB5fmQoDKKl e0WgBPepM2nuJ24pmAaokO p5zESyeKwaaKPcdKDrGLDr uaH3q9D1ORPyy0JejiokYW BsYWluXGYyXGZzMjJcbGFu ZzEwMzNcaGljaFxmMlxkYm BaVKTnWMrxJ2lkUgXaZuBi EyncZCT3kD== Gross assessment was [facility] performed at ([facility], = 2777) Department of Pathology, [address] [place] [address], Technical component was [facility] performed at ([facility], = 2778) Department of Pathology, [address] [place] [id number], Professional component [facility] was performed at ([facility], code = 2779) Department of Pathology, [address] [place], [place] [address], [facility] Test Item Value Reference Range Interpretation Comments Case Report (test code Medical Cytology = 104) Report Case: [id number] Authorizing Provider: Minal Joy MD Collected: 10/08/2022 02:53 PM Ordering Location: [address] Received: 10/10/2022 09:36 AM Service Pathologist: Jimena Anton MD Specimen: Pleural, Left DIAGNOSIS (test code = [id number] 3220) [facility] AlmazNcZnRuYmpcdWMx IHtccnRmMVxlcGljOTYwMl vyfyOlGFUayREmQ6Fjrvqv WGhtCY5gOA6lhPvxdWPszP IfOZMbReSba0fhe218sNRm x2lcINGEfotbvWg5dCctF4 5as7Y1FcpiD57bdECiOUW7 HZFwMFOujEDjANPiQSH2ZP OkeSByA6ocFWVmDO8gbrup KPsnDXhiBOXwqHQ9TUBtqQ RbA2OxMRBsQKtrBSXxmbn2 DwFrDz9xwLXnnGhaLWfpEF JkXHBsYWluXGZzMjAgTEVG VCBQTEVVUkFMIEZMVUlEIC oKTKRAP3VDFaLpOQ0LMYYL DKgqLdkJX9atWgaboE9uUH JnOM7zWWKIKfImTFVQRDwN CWjxV1QJGMJvBGKIE0WQP4 uRETZpXy1KLW5HAErRSsEA P9tgBNEGIPQTD94AED5PXD txTRY4n2pwqRZoXGAptVUt ODAwMFxhbnNpXGRlZmxhbm zeYBCkRQP9xjRuOLNsYXri OFCkCXapXw1fvPTgeDupDd LlWXAhl2oxqqWFqfrprFf5 z4zkWXGpZaJ1tNDpWRfbR0 qmifAplFHnYKDlVOl9fI21 RLUtkE9rdIVuBBenbwQcKc E5GXneXWTjVcF5YEKqxBGi COOkS3caTYSkNPupARNlRB aupQUpQJG6oUiag5T5xAHv aGVldHtcZjBcZnMyMiBOb3 ApBZa2jRjuN8OoUBUkVdF2 bHQgUGFyYWdyYXBoIEZvbn S8bD04LCmjasD3nWZiv9Cx y45hb650xR0cvDGpPEM6AQ XiSCFwyBKoQTKkWGG4QGIz oGDbJ5unPFHnUY5tbzkqDD riCCohXCXxlDC0VCYdaDAp F1CxUVDeACtaGXMpmud9Ge KcYg4haUPesWkdWGcpe7xk r1ywzEOuLlh9DDSbXbFaSg ccIYonx7Aiy0geXCPvsu5r KQK5dQJcuKsyh8X9mPMgRZ HjoVJgECUfPG0npJMbQUSw xF2meubuDAZjYjVumrzyWN DtzCwedqVzSu1guRqeCFG8 SJcgF1cjaW6lSbH7WBpbS0 dvoB7fGUr9DMonBELqmWS8 lvC3TIDwnFWgN0NmeZ3aWU MaLC7qejd1v0lcIVZ6ZAbu VVIiKoA5byZ7BCEnqQTtOQ FhrWkaRSqfx466DIN7FmTs ODSel4CsX6FifPspA91hnX hvT34sBKQebZhumD7xiUab fT3mTfHfWbNeRHylmNgdKI 6jCZRcI5kvhMBaSGZzQRMl K7eeNnVonO9yoDofZVdgkb KfTSVkEya3IBIisOFvTXLe Bpx8QKJiPWLlL35olvhxFX G9uC2py0kln1KvOYteEEQ8 UPClr44sFDoueaG5MGxhXx 37FMueWYV3XLibSTH1eF== COMMENT (test code = e8rqwLAfFTCjjHB2NqUlSA 0025) Lkm5gwj5WxnELfuROrAKcr xSYvowAbwc26yWU1dO66OK 9oBLUzLrE6HJCldnL9Wss7 CELlZPLaiKJvG347a5ggw7 ytwnQaxGX4tRcaRWArcusv CzB8XYscZYZfidwqDQt7PB udNCMziOK7OAQqmRKoA0Co FYRlAP2gopp0LAA5TWoqXE LfLjY1FSWeaGVkZAGmsWgy TRasu309YZF0GaCkCZHace HorVnhmY6tGnDzRSTTnAIb q1JyG8dpHS4inYKjB31xoW 9aSEJhc5SbjkLsY6RyfbVc cRZbu7EhHTxfSPxrY5YqkT DlDR7xARIhbg5ouDDfrR6b kKJpgGI6lG3dWqULpaI0vY YjX6YmaUKnzC8hoiDcTFBy sdcysWkyOE4rPZW2mHghFW uzA1KziVQvz2WzCMJbnRcs bGlhbCBjZWxscyBpcyBpZG SwmXyunOGhHWNmWRSbh7Qs xZ8wRNMda3p1vIKkwPalNh 9pSOYfaR28UNMKK4BlQAyl EgUiYALpBH2zIGvxt7PyK6 QvkRCeVMZdTE4jwYYbMDHe qSi8VLotQY18dFGdITQlb6 0jhDteQBG1xI5yiElunzps ZoG2FDHezgFqJBAqj6Hpk6 7dVDTxq3W0STizRnHPeFQo ZWZvcmUsIHRoZXNlIGZpbm RpbmdzIGFyZSBpbnRlcnBy ZXRlZCBhcyBhdHlwaWNhbC YsSCwlbciyr1OetJrpmY05 anHsb8NkdBWjwYukQG0qaI 9wQWEfizxaRZDlGg2xY5Sw NUVNDTZai38syZRcEIjjhX ztvMzcf8SoQaaeWYthL4Bx XHBhcn0= CPT Code(s) (test code h9ejkSWkPHGzuOU1GsOdVQ = 3357) Nnv2eyd8TccJOpiNHpBObq aQCqqjLvwr81vEQ4uN61NX 1qSYHmNxX1BQKwkgX9Bpn6 JFNdOAAmpEBmD021z0guv2 xokwJnfNM1zVjiXKVawzak BzP6FPjrOFFmeodeAZr1HZ xdWNPyzGP8OJOgrKBeH7Xv WAPzRL6wvhf7CYS1XGruUG YcWkH9JEMulPOfWMFtrSvm DXutl157MGM0YgOgOAKgzy XggTbvcU6mKrRnZSH0KVGu AQzxEBotHQFdUEv5LtVlCH N6VWD2UBguTEKgda4= CLINICAL DATA (test t5uhqDJlODLgrKK7PzLwTB code = 3358) Exi3fgl1ImuBOcbZFtRQln cXSostPwra73cPK1wZ13EW 6gOEKgZzY3UHRkwtN0Ogt1 WMYxVHZotXQkA290f9glu2 wjhzKgyUV5HRIqVHJuN5La RV1jJPNgsWHfE46jcXJsGA K1VRTrPXByhROhABUqRKC5 EHSzsBYvY6sbZPQbCD4cry ftCYuwQBdaCMUacYW9LNZm lEKgM4VaDZUyIRryCHEeqw w1CkEqAp4mxRJvbVubHAnd YXJkXHBsYWluXGZzMjBcY2 GhSBm5MWxdja2pmyZjiFGl ZVx+f2n1jVSXDLpxe7YjRZ 5IRnJFRiAoRUYgNDAtNDQl PXzzK0SZATCnOABvQtvlzU I0IBD7SJAnDtBucbVldVUe IGNhbmNlciwgXGNmMCBtYW hpT70yyuHsoIygeXCukXSc CoB6d2lnalTrXUIqlh8vpW OfuCfat9ahOgPaHVKhvLAg vJ7gtUGtOHtrdANrHVdlol AyTCBOQyksXGNmMVx+cmVj VI84UVLalVz4LTKuadWqB4 B7UADmwxDwwPXqclmtYYIj kpLyKBhnyIWyEP9oTSSkIy CbHwXdQHYfRptcAyRcNA1l H0GjFDMiGBZjzlIgCIWgQR EgdHJhbnNmZXIgZnJvbSBC zyL2l7Gmt5K9MWPyipKqeP Z4dVOeVCK1YTy3HVPur38a t5KwMOPfb75wBI2hHUFwGT HRKXPnNK9iuLEbqU== SPECIMEN SOURCE (test b5njvOCgUNQgwIQ3EuDjSH code = 3377) Kat4pdd9InmEFuiAZqHQjg qFZtdgQahc40lKC8kJ75PB 1jOXUhWtN5IATwtvY0Hzl2 KTHhCPVddKNsE935k2vwn8 dwfeZqzAU0lDmgQICsgwao LnM8YIseWZGbhxbuDAr0UI xbFWPilNJ5CBPfjGAgF9Hr KJPtEU9gixz7DAK8YYihKN RiAmH6QHJkzNRbLONxfYba YVuao128MRM3BuNtAVYusz EbvYvolE6vDdMxDLGRJOLY IFBMRVVSQUwgRkxVSURccG FyfQ== GROSS DESCRIPTION (test d8ayrDYnZLIhoQULMMTjD9 code = [id number]) wajxBkJXNcnMShD7Dgdxbj TYnhKY3yGK2wuEnezJMlcF VuLT1RKAWzVlFzDRGzzXCp xjOsPlPkEBZwzTYnfRY0LY TsYW8ftkibVFfpDIgeBUKy knM9ZQQaeRCnI4UiZFIzQK 4bneqeDPB3MYfwbQ3xupAZ FxtoJs1cgGFfsWkzUyFjNd NoYXJzZXQwXGZuaWwgQXJp QQx4jR5XXicwOEF3HSUZLs upEOAiVO9Zd9ovYUTodUNj ULA9JUnevUYnSHVcCRQmCV g2DROdGTashZYtZC8kiXas JzilnJzcf3SkcFDyTQjlEV KuGSDjJKvvOJNyES9TNjOn XVBtLPReIIrdMTa2FEf5MA 9WUyAiICAzMTAxNzIwNiIg WRi3UTeuXG2ETDGfTLy7JQ wkAcZ8EAU1IbFfMCKlZdNn XGYgQXJpYWwgXFxmbCBcXG 3wdFjrlJFktbSEKwBEaSK4 chOlCKLFJUL6HejxQYWjFT xzTSQrK15ki0KAb6BaTN6K HTr9ijPgzfrszO4qCLIuyd AvJXwxjZHkY2yaRcUdFDPK IYTlnNQrYKW4CBMjzEzqHN FtYmVyIGZsdWlkOyBwcmVw ARPjCIK3VVC2sZ8nsDgxrr IthyCpH3WuvODshN3yggdJ ZnhoSCJxb3DudIhaBGNwzR hzKhxwZ8clv7UqtPVtGJTn eQVbgdoavTSzLKUqCti4WJ FuhyEkxF5bvQbaSCM7hLPr hcFwMVVlz98oRTTzwFrtIN UyBEXxsHF9CAHoRsh1NTRc rN8iOo6qyKXrqA5tBJCmOM D4SZAzuL6hg78cPPRcDlJh MjAyMiANClxwbGFpblxlcG bgZcCchMNlHbIdcVffmF74 INQkzLNlHOW3FO0xYULrod mkPTIhWBCxKQV8XYchqK47 mKAxXGLvZQMfbJSycZ4UCR KsSXX9UWxofJ88rEPfGV8L ASEyRNX5SNLrrRYtEYB6MT 3yyI5IiW== MICROSCOPIC DESCRIPTION j9cvsUGjOOXlnYO7FhEvNU (test code = 3371) Vgy7hei1HzfXRaiKBzTKrg nWEpkwNvyc73lML6hV39LD 4jESGzBoC1PGTmbtH2Yyp4 NTSwSZBquOTsJ868c1hdr5 jyjlRptHZ7fWcuZMYinvpx OoW6ZFgeGKIcibhlVQq0OS rdEOOrhQA7BBEkqQKiY2Fq KVMqDD7oyxc1LIE6AUqmOO BvPqT2CXZioIMsHMJhxLdb MLnvg746ORG4XyWpGCYnfh VvxEdpnL4rEwNgBMGEIQSr n4UyQPRsMSdnEGL0 STATEMENT OF ADEQUACY Satisfactory (test code = 2757) SPECIAL STUDIES (test t2ubjZEwIJJjh2yqMUZdyG code = 3376) FuZzEwMzNcZnRuYmpcdWMx HUcaxlKjCWvwy0OlV6CnKn AwMFxhbnNpXGRlZmxhbmcx HULbDGF6euIlRBLgXJajMG TnCNbxZj5jfJOxjDgsAkRt UJEoz2ocylTUgzcxoGe3d5 rlKBIoNrN0pUGqHOaxK8ha caBmvVIxD9MtoMJfhCw6z1 aaJmLoKyZ1pLWoKRwiS7nv jzSxmWFuKXLzDWx9xS07BW CzgU3baXNoHTsbyuAwZnT9 AGajCXEiMcF5YVMrdYCySG JmJ2zpGIGgHDfhPUTzMTjm cMTdRKO4oIdfz5Y6eEUeeT ZsdLsdGbJaApGjKtLNi7Mt RAt7vUnjM7JrNHXrUkP1eA QgUGFyYWdyYXBoIEZvbnQ7 fKdxtgOux50byGJyDDWuES DvOfEmoPfyAMCcRQEFb4Zc tZsmVQH7kEj9sYrpJgchZM X2Kmm0CL6rbd57hkj6xUyc FTEffwfgDhE5CPbwCZHoyf gvHKz5XXyiLOSwqCC4XLYh rBQeI8FrFFBdOJ9rzqk0JZ W7IEbrVRKrDyH7BMPdnXEu WEYejYfbSWzae282SJN1Ff IaHN4qS1Mqq6R5qI0maMMt FYRwaWNdEuUwLMSqlm8tgL QoXNzjt2ZfRDR5muH6sURi zNZnFPPeFD73Leaiz7NzUk uid9YgH99urSV8VQhue9ao ME2dUqQ8ceDiGYqbs3swbZ 0iIkN5OIznLW2iDW0uTOEv hL5nswjiGXOhJiViflmpRK WydYgpmrFbLc1tmDmlLBZ6 SCatC2ojiO7ePxO2XSmzU2 ameC5yGEh3DLivwCV5OXCn fJ0rPI9rowhux6dbJDikXB flBTHhveX0xcG8QWGcfZKj T9PzgZ5kUZPyBM3cqjqle9 vnFBN4NMajQDYkTZY5BbYx PTNsv2Lxisf2ToIfm3TttQ BhQRwxG75rs235ILKdmxYt M4fpxUUlgtloqTJrtxerXV myhbZ7MJJtBPXrXGrvBHQw XGZzMjJcbGFuZzEwMzNcaG ljaFxmMVxkYmNoXGYxXGxv J9vfObNqW9GxENEyPmKhNW jkNBbzmWAkwNWbgTK1kB0z KC8nLZIgjFCjU3SfJHDptw EwjZJfGZD6tTFcnIZhKL8g IApkiXPxb7til6EqD3drdF qppMS3DM0pRJNbYITwHBys q4QylN7ySzdgdVSzlgiyQO xmczIyXGxhbmcxMDMzXGhp I5dfAiTzMHTttWpwWLxna4 NoXGYxXGNmMlxmczIyXGx0 cmNoXHBhclxwYXJccGxhaW 8mKtPtWrFjDtyhPS1gKLNn G9cngHNqXFYqSCNgU5buQo CyzI7nvTgkOYzuZeAmLxRh EpEIx406og2dJYUzhKXpsq OWaCMbbF8oMThkMXyfAZjy nFNjEDcqz8sgRMItj1c8eV HoVUZdfeFax7gsOZodloNb JLXptTSnlVTwPEFfb93tFP bdnKhjxXhpRUFea8DrxDzb g5DkGiVvZXohr9BjD46yrP JvbCBzbGlkZXMgcnVuIGFs f03ux0wdCDIkGrR5bWUjhY L5yNWguIEvo8CjgEfiWSYx a7kwRGJutn7sdaqpbASvm6 WyjB7tjmhaDAuusXEfdlTq WXGeg0n9bRRoJVNyMYJpAA xozLo9YGBfw763lm7rvpR6 cDUgHCV7NWfjMUVxXVFzjl UgZXZhbHVhdGVkXHBsYWlu XGYxXGZzMjJcbGFuZzEwMz NcaGljaFxmMVxkYmNoXGYx DUewQ4oyCxChN5KqPJZaDn RtyRJcL8omgPIqFHEpNNvw XGYxXGZzMjJcbGFuZzEwMz NcaGljaFxmMVxkYmNoXGYx TZsdE6eoGkClA2ZeENBsRu IgIFxwbGFpblxmMVxmczIy PEtrykitRYTeUQtbE1ggXe VhFYVmsCfgCCyrb6SvILBv BXWpGnswgzQuUKv6wgHgWY BhclxwbGFpblxmMVxmczIy MCbowykdQIZbASqjR3opIx ChNBNazTffPSdpp6QyJJId XGNmMlxmczIyIEltbXVub2 xoa2UcN4eojYcywUT6TGDa I5fzjDNgpKQ7IQJ0wW8tEI jntsVlZKMlj3YeRMPyRNWf QbK6gL0pHBN9ZxNZwNjoED BsYWluXGYxXGZzMjJcbGFu ZzEwMzNcaGljaFxmMVxkYm SdFKRlGQcwB9byTgMuY5Jo YALuZbYixFcuVOjpYWx2Fu xwbGFpblxmMVxmczIyXGxh ulyqSVWaIZcrI0wsNhZwWU BswTgzEMwfd1GdDMAuTPLv MlxmczIyIHMgTWVkaWNhbC HCQP63ZHIjAYNthBoioW5w rBEJYQBrhpF8a5E4DXmqAE IxTBn5CZbbwbNpOBTpxG8m YISdSB9cSRu3zfPqBBKyu6 MhVG2wMAWcsOMrPAA8CIVy q4ZrO1Mdj5ZkEFYcRZEaqj 0kscNoToNRcTLqOAGbkc33 RONqUA2zF3ezBSVqCQOiha FujBVqu8QuWMDtwQG9qKMg MK5XYdGJt74bPGUwBIVAta CqTYHawShrkBI9qpV5oN6k LiBUaGUgRkRBIGhhcyBkZX Jnmo0lrdXaDPNtTDZwl4Dj fMBjiQXdbeUjY2Hyq9FlAK Nguf08CQkcmBPvax07YU5w J1Pdr3OlrW7eJEexBWRdj9 ThjCTdgSMlIUHka8BxB7ns wdgjRTbcgWXwgJ0yHEGdAX q2RSJlu8MyFCWqf6VaVpFf ynByWQNtYWDwNOUhdH50TQ G7tQqwgFavcpOlBK0eXQCg gsJmUYQqZIUgxN0ePGgvkv DjZHSjfeJ5x5D6EFvhHMKd rsCgYxleSUA1koQmsmH7dX PqV6xmtiauWSdlGQTcp4Fg lJ0ggSDBvCIid4DdaNGsqV VFgDFmIO2scgTiEZ1kZZJ0 ODggKENMSUEtODgpIGFzIH T0XZqvJolvHWL3ynSzRANj k7XoBJnyU8kqK01oaPcqmB d1tVVhzBblzZEnoBUvSULq haH8o1S6QQUni5HghzjhKD BsYWluXGYyXGZzMjJcbGFu ZzEwMzNcaGljaFxmMlxkYm WoCUYpCTbwQ3qhTtQoClWj TdghVXG2iB== Gross assessment was [facility] performed at ([facility], = 2777) Department of Pathology, [address] [place] [address], Technical component was [facility] performed at ([facility], = 2778) Department of Pathology, [address] [place] [id number], Professional component [facility] was performed at ([facility], code = 2779) Department of Pathology, [address] [place] [address], [facility] Test Item Value Reference Range Interpretation Comments Case Report (test code Medical Cytology = 104) Report Case: [id number] Authorizing Provider: Minal Jyo MD Collected: 10/08/2022 02:53 PM Ordering Location: [address] Received: 10/10/2022 09:36 AM Service Pathologist: Jimena Anton MD Specimen: Pleural, Left DIAGNOSIS (test code = [id number]) FuZzEwMzNcZnRuYmpcdWMx IHtccnRmMVxlcGljOTYwMl jbfwIcIEJktZWfO9Qfsyii QHhvSV6tKB2caIwdqBSyuD FiVSAuCsUmj0puv522rKDa e8uhCQBHhpjjdHu2iIokX7 0mi8E8RnkvN68riFKjMCL3 AXKhTUDtkFVrWJBxJRG9IB AsqJWrE4jcFBSrMO2puxey COlmDSpwNLWboWA1DULynZ WyJ8WbRMCdYLhfRLChwcl7 OiWaMg9xuKAsvFogKIrbTO JkXHBsYWluXGZzMjAgTEVG VCBQTEVVUkFMIEZMVUlEIC iKPSEFV5RSHsSrNZ4SHCAP JYjqFpmVL6yjFepxyD8pOG YuKO3lOERTUfDhDLBNNQvK SYuuA8CSBNSbMRKAK9VKT5 sCDZLyEm2CGX7YSFuCWsOJ K9nkRNNMCAZTN93JBH5EGK gcTCD9x2tmsVBuJQSfbCUf ODAwMFxhbnNpXGRlZmxhbm vzYJVwHIV7rqCnNOLjZCzi WMXyMVqeGv8gaSUoqWpzHg PfERQue3wweaXHphjpmDz7 j4udLNKaPpN4uQLcTJbzA3 ndpzJjbAKdGUWsUDz3lU10 IELngM4sxMUzIPzgoeDbIq I1UOfeMQVpNrO0JVDczNEh NAFnC5lfMFGzWUfyZKVfLM zwjIWhYTL6lUjte0F3kWTm aGVldHtcZjBcZnMyMiBOb3 UrZMr3bWegE4KdVYBfLoO9 bHQgUGFyYWdyYXBoIEZvbn R5cK09PNqibcF0iRXmf4Ce e97st132zI1exNIzINF1PF OxGRThrDHhRFRjXFA3AQPx pUTgA3hnTPVjEM1edemeXM rrSGfqOQKbyLP9JFAbyVZz G4EtHTPoPBuzJRNvjjf2Fz MkNy7tiRQqeLqbGBntq3bg t4iytCEfTnp1DTWaEaLzNb xmIQncb6Ekp8vcLMCmms1b SJP8lPLkmPlzt2A3rYYrAC SjvQSkQFMqMS7bdFAbHJIo pO1vfrxdRYDxYgFgdcaoXL SrqOazkbQjTc8kuAafXYB4 RIrbB0qwcE7rWdO9PDqbU6 oqyG2aJPj2NQaaPCZebFI3 bxN2EQAbwINgB1KxvS2bUF DyCZ2qskw4l6otRTZ2TMxg MJVgRdP0paY3GPUskOUlZD HaxTghIUuvq452YXM1BeDj OSFrv8GtZ7EkmZilH77itV vqR61dLVUiiCiujU3toYtr lC0bQsFvJfXaMAgvtMvjWL 8iLFGlU5whrYXwTTIgZPCr V2ekBuGmmL6ggLzqLIojxx BaQBZhIeo5OEPgsNStXFJb Tkr4PCHdJVDwN56cqhlnSO F5rG4dt9ied5XkEObgVYL7 WYCjq81zQEhicvO8AGghDu 06KBohXLJ1CVjuSUX4iP== COMMENT (test code = h5kgjMDjHHVvcTJ1KkJtDU 0545) Pwf4acj0CfcOCuqNCpJRek rZWxxrSdhx26oGM3aE15AZ 7yHZPhGjK5PYSeoqD4Sxv0 XECpVTNgaZGxJ057d8keq9 grzvWmfIA9kMmmHSPegejy WuE0WJgjLLRtbazuRYo9IS syJVKodBP9GGMtnAUjO6Cg FJHuDL1ghyd3IQS6VVwqUZ VbHtM7AEMpjIDzAOZfqTvf BEbyv659OCS7JeDeBTJccw HiyJimgY4zHqDcSXIKbATo q9SfF5knAL7fnFRkX33waT 4rZWNij7VwmoOiC8NubnXz nUZkl4JqZSjxIAcoZ7UnuF JdMB6pUAQsyk1nmTClrP7e kJClwKT2qH6iWwZArdY7pX JmU4MqbQGeiS0sszIrCEYp whlldHvsOG5dUOM9pAvdXE wjX1XciAMyv2VoSBNqsJxu bGlhbCBjZWxscyBpcyBpZG AsnAxpkMAtSJMnRAIjn9Di cM8eSGQcs0v4xECvsMueQo 1vWXYejD59JQTUH2FjVHks GlDqPREuMP9tUXpyq1AjW6 OwbSGcJMNpDH0meDGaMWRq aRv1EScgKA63hXUnAMMwo1 4afMgaSKL6jF3poWmbfrut YhK8LRUvffJiHCJqc6Zjm6 5mOGXuk3A4ETwtAsDNkGCp ZWZvcmUsIHRoZXNlIGZpbm RpbmdzIGFyZSBpbnRlcnBy ZXRlZCBhcyBhdHlwaWNhbC WyPAvdzjmrt5PwzWygdK76 tnZpe8AvfLZlkVgpUC7clB 1qFNHfkggmYBTtJw3lZ3Ak KGFJIFDpw44vuCGzIKnxoP napVxxa9GhArpyXFjoG3Vw XHBhcn0= CPT Code(s) (test code m7oleLSxOGZxuMF4FxHvWC = 3357) Nng4pwa1WjuMLdmZDnYXlk vAObqwVhxs41fLX8hO65TJ 0aGFCbWlW2UPKvbgU7Dgp0 EGXuABJowNQgP432z3nyn6 kwwuRvqTY7pVwqMLWkyyax LiB4HWkjTNWhwespVKk3CZ sgIXApdNN4KFBjnEVqS5Wx TBFxSO6idwm4NHD8VHnjLN WgFlU1QVVsrMIbFPCvhEds BDsao763ZAX8CfXlQYGnjl VzdAbcrB2zVsSzHXL6TCVc JTneOYduWLUrVEq5GqFwCP H0WVU5LYmuNSActn1= CLINICAL DATA (test q5lkxNLjVLUnfVZ9PgJoMW code = 3354) Nsm5ese3YewIQonDCnBZed qJBnomOcls17mCK0lE57DD 2sHCLqSfL6MJXqzhP9Pky7 NZHjCZScjMSgH336m2jyu5 anoaJolYJ7NTOmPWByZ6Wb AP6sPDMuaUVjD54jpHSnGP D4LWEtVYBhzWMzJTGvJAE9 YCDmjFOyY6xuBDJmIY4lic ciZVmiCInqXTKmyAS5BBRk iAIbC5MvXUDgBZvuTNYgnp o5OnMzVf6zfILzlFjqEOip YXJkXHBsYWluXGZzMjBcY2 BeKAc9ZOqlbm2xtoAlxRPy ZVx+o5d1tIOVZKqlq9AtUB 5IRnJFRiAoRUYgNDAtNDQl MSysV8ELSDMrALTgKhyojQ T3FOC1CYGuKsKkzeJffUPb IGNhbmNlciwgXGNmMCBtYW wiY01typPuiFxnaYVjmVRj KvH3n3xuboGzSKTwla6dwY IocZlqy4wzBeVzMKLalHFc uJ9knDXgNQpejUBwCCnydo AyTCBOQyksXGNmMVx+cmVj OF15DLVlrPb7OTAbsgOjA5 T4GGMwngUmjRAzslfbRLIl cgPeVVdwpPFiCS0gUAGvNr EyGsXmUPKjGqzlFtLkJB6v L6NiYRBcNNCuegLdZDQvRM EgdHJhbnNmZXIgZnJvbSBC paJ1v7Qqs6Z7QDBfdjSreE A8aZAwTRK6LWc6AMMvv67e p7GvEXAuj63sMN1nOZGjEI WLDVGnUV5baEDxzY== SPECIMEN SOURCE (test p4gsuZSqVPHpoYG0TlTyXW code = 3377) Dgy6bya0GnuGPfmWRxLLkl wSGvnhHlst13gUO7nZ05DT 0aUPVdVyR8HLZvscA9Lzi6 MSPwPZWelUObA552e9tvq1 gsgyUreTD2uPbxJNVxxlib FbA0IOivDXXyaekvSHc1XS wcBILbnEU6OWWtjKRaJ1It ZKQtFD7qwuk0ZET5MKwpCI VbIyV0NOUdgNQzLFTjrTkt NVmrz368PAN0BeRvQYJedn KtvPvlkS1gVdXrYUQPPILM IFBMRVVSQUwgRkxVSURccG FyfQ== GROSS DESCRIPTION (test v4krsNTmKMAmlUUUGIBoX8 code = 7943097481) eywgJoRMUtsYYgL8Hettwy TGfqRJ3cWJ6ofOhdcKMxhS ZsNO6KSTJuWjQkMSFwdGOo zkDgIgBwIARxjZPbwVQ4HL PmPZ7xohghPOfcLRhmEYYr bjY0HRXziMOlA3NtKEAyGB 7azlxnVQC9UQgplD8nmiPQ QwtvSs3qyPSdoOesNnUeXc NoYXJzZXQwXGZuaWwgQXJp UPs6cN4JIcwnVOT5QAUVEb hfYQPjBO9Kt0uhGFCszDTu DAF1CAbbdRDsENNxJWQeXU m8XMBtQZnwpSIbLM3rwGph JsiuxYtdm4SkwHJuRKokJQ WrOXPzJZpiWCFcPF2NVkYt PHYdCXNjXIpfPHd4FOs8PQ 9WUyAiICAzMTAxNzIwNiIg JVt9WJtoWS3ULWDeBTb9ZC brJgL3FVK3ZsVgHJMiOgUw XGYgQXJpYWwgXFxmbCBcXG 8saZzqzPDtmgCCVnTPeAA2 dyFfTNIPUEQ5DrfkQLIuYJ vtEFPoE19kv1ZMh8OhKT5R RAn1srDgkdfftE4yREBcgc FsXWhmzVWvT5aoUgZeVLFI VESgmMEgDRZ5VVXdwBkzOP FtYmVyIGZsdWlkOyBwcmVw YVKoQOC3HPF5jN7qtImujt XdkwZgH8ErtXWemT2juvpL EhvhCYMgk2StwMmiLECiuR hcIvktI6fpk0CnaDRaAQHy iLGhvifzlDTqXRFjCim4GA FzddFvmM8bmNbeYTJ7vLZd kwSvNACbw96yBGTlxMnrOG JoMITvmDD2OUAwDjg3BTCs aZ2hPk3gbGJmpU5rMZGhHE C6BCJvaV9tp44zFOVgQbUx MjAyMiANClxwbGFpblxlcG ujFzMatSAwBrMhxCtjnX50 DDSvpXDjJSH5OT1wNSLdeg wuTHPkBXKzKNZ3XFirmF86 iBKtHQMjDJLzwTRotZ8BVH OyWHW2AYldjT21vJMuJI8T YPZbRJK8BZQmdDDmCMA5UO 7ieT2PqK== MICROSCOPIC DESCRIPTION m0uyqPTjVJZclSA2FuBmNZ (test code = 3371) Ecp7vfy5OzrYHzeRFoYBvr qANwjhBssy11bAG3kP46XN 1uAYEyOqN6KGDypoR0Qkk8 ZUQyUOKoaFEcQ601c6alj9 feouMksEB9fZowEUEohmdc FsE6KIybOHTznmuyGIy8AY blMADgxCQ9YHDewWDjY9Dq MDOoWK0olyp9QUW5KXlhGM HeHeC2NFVizAIxAWHahKli GTfjw810GVP0OkZdAMDfay CmiXghfB0zGfBjZREQFPKh w7BfQKBfGXxxKHU2 STATEMENT OF ADEQUACY Satisfactory (test code = 2757) SPECIAL STUDIES (test u8onoTNlCWZus8leEVZhoP code = 3376) FuZzEwMzNcZnRuYmpcdWMx MUrptqFxJLwaf6JvX1ZdUz AwMFxhbnNpXGRlZmxhbmcx RAFiUBD1tbUxOTNeINduQQ QaMEvpJd3naFMehZayDhTd LYChd2lesaLUqjdpqPn5e1 dfUVThMjK3wSOePElwZ4gm wpVioVCtZ6WgwPDfhHt0f7 yxQdZaKmC5kEDsVBmuI8ri vbKaqRSfBVWhPEz9yZ67SU MoaP7hpNLrUCsrkwWsOxM3 ZEqpQOAnLdP4WIXagUMfIR TnD7uhVYFlDWrqPFIzISgx jGPeQKM7sSjkt7M8jPRffE SgeSjeFwXoIoJeIxNCg2Lc AGq4sOkoY3XvUJDkMuL8gL QgUGFyYWdyYXBoIEZvbnQ7 rNygwtOjb36wnOMjPESdUQ YlBmFsoLqcLCTpKFQIz3Ed wXxjZLF6lWe1yLhzOnuaZP R4Vbt8SL6uzh20vzq4rSsb LFKzybtoUrV1ULtrCVFsfd qxOIv0BQyqRIQspUN4ZRZy oLVhZ0EwIBJlLK0ikjo6PK Y8OAneISEoJpX7DGVwjMNo QKFzhWosTQxmo631YWM2Yf VmQZ7zZ7Szi6O5yM7gbPYv IGKnlXBnSsRrXPZypm7drD OsLFasz8XiLKN5oeA3tFLr qXIhHIDgBO96Dippl4LtVi ipi4FrJ76jtWI8FCsms7ll XA0jAbJ1fiWiADmbd0txvN 3wRwV6MFxyFW1dPY9cDNAn lL1xcqbgHWGyVrOdugvjUX QsqMtlrsTaXh1akGvhDMM7 KUfnF0zkdG2zRdF3TWxtL8 pjbX5vANz9KXoqrHS7QJDr fY9cYM2oenosn6rkHJgoCN duOPUxmyX3enR7MPEewCFb A0LxxB6xTOLiAT8ypdnhn5 skMEA1NVjoNIAcMPF2HnYg AWRht3Zlxjh7NeLiz7YqyI OhKObyC51dt881GNFknwFz U8owiMCppdvscMMieqsqON kswhI2CUKgHEClBCyjTGYl XGZzMjJcbGFuZzEwMzNcaG ljaFxmMVxkYmNoXGYxXGxv H5dyWbKbV0LyMUTdQjQbCX uhCRqyfZUcaPImwEJ2lM4v HE6lNRLtbJRvR9FoVFRgme CogEXnXOJ2yISrnFFhFA0j JBcypRCkh7sfh5MzT3qztS ryuLQ4SB9sUQWfROAnZJza e7CvsL7wSpgsiBPamawvGE xmczIyXGxhbmcxMDMzXGhp Q1pvIaTrGUEqtUxqKLuga4 NoXGYxXGNmMlxmczIyXGx0 cmNoXHBhclxwYXJccGxhaW 8gKcTzYbSqZdnjSC7uISZm Y5nzrBDnPDJnTWHyV3mmAv YmwQ3tdBzvLWjvEcGbNoFp TtCOh220dx2mLKMleDWlwx LTiRJzzK8dFMxnMOlwIOye kMOzYGabm0vsOPLff2k9bC ZfXGYbxbWui5rpREqvehAt EOObxNOplOQxSMIts75sNK yzgNrmjAvoRYFia4IjmBwh b7HvHpVyQEfaa2MwU04thB JvbCBzbGlkZXMgcnVuIGFs v81wr1okTIMgTzS7sPWwoQ P9zCXjkGDvy2UpnKgtFVSg w5fzSDRxlq3agcnosUUhp1 ZgpF4zmosvQMxtiSNdioOt BMOyb8f3wBNcCSHkMXWaCH qssGf1RILdx294ue2pmjN8 dVZeZWX2AIjtNSTpRYBpzv UgZXZhbHVhdGVkXHBsYWlu XGYxXGZzMjJcbGFuZzEwMz NcaGljaFxmMVxkYmNoXGYx EAylX6iaTsLbV0IpGZQoDb ZarORpH4tseMUfXPOqKGej XGYxXGZzMjJcbGFuZzEwMz NcaGljaFxmMVxkYmNoXGYx QRoyZ4zuAzVrS8TaPPGdHk IgIFxwbGFpblxmMVxmczIy VByjorgiWIUvJJuaT7igPm SoQGBugHidLMeci2IfIJKz XOVhNkjlemJdNFa4ocSrGH BhclxwbGFpblxmMVxmczIy YDenkdukLPPdAFblB4roKd McAFAwiJqxUXqli1FnLDJj XGNmMlxmczIyIEltbXVub2 ess7DgB7dzaXaikXP9KUVf I8ahuIEaoYA5TXI1qW0pUT bjeeSbGLCfa2KeZXOuOKQn FxE8fP4cTTQ7UmMDvTobXQ BsYWluXGYxXGZzMjJcbGFu ZzEwMzNcaGljaFxmMVxkYm BrUXOkXNyjC0iyKyHuP5Cc QTEpInLptNwsEAoeEYz5Hx xwbGFpblxmMVxmczIyXGxh dyrsLALhJNmfP4uhWbNeHO MtuRfpZShwt6LzCFOsGESk MlxmczIyIHMgTWVkaWNhbC JVPJ13QPAyIVSylBzdcG5w lKGHYWSxmvL1l8F2YXokIJ WeYSk4NWdbqpWtMYRyzY0z ZKDgIL1lOPh7fhIeGRQhr8 WvHD2pIWUssMJtOUF1IAYo f6LpP8Cbe7YjHSQrFVUdyp 3iwxXjTaCAiUKuRGWuiy48 QFCuLW0vZ6dfWBSjAKLmzo PhcXKvm4EtCEDlkSB8tWJh EQ9CQkMHx72pWBSxAUDFji LzIVKwzJrdrKA1ksD9nO2a LiBUaGUgRkRBIGhhcyBkZX Wexr9zcyTrSVDtVINem5Qw lOAxgDNsfeWgU8Sot9UfEA Xstj55TUujqOTfdx35RS5t N9Vqv5VimJ6yHYohECDkg7 RmfYUgvXHbUTQgc7TrT2mk hfymOChcrMWhrG6mJSJbHE h6ZDUfv5BzNEIto1KtDyZt twHlUXZfYYRiIPJjvR53RN U3bPfsbRgrnlRuNL8uKNVi xgMlFRXpECTbtB0hSLagzt FgENQrnzB5g2F5UAxwMTXz eaHtSjyiKWO3jtBwgtB4yJ HuT2czagisABmjVCJma4Tu sY6hdXVDrKEvy9CimREkvI ISsOVpTR0ukdXeDT5vYCL9 ODggKENMSUEtODgpIGFzIH N5FZmiLbvfPPQ9lwFdZDRe f5UqMIvcA4jtN24tiQnlqK l4iQWydBtckCMeiQWuNLOm pkH7q2S7JQHtz3JyxhqkYD BsYWluXGYyXGZzMjJcbGFu ZzEwMzNcaGljaFxmMlxkYm ImPRKjYIaqX4ykXuHrMyNm UegpZRC2nB== Gross assessment was [facility] performed at ([facility], = 2777) Department of Pathology, [address] [place] [address], Technical component was [facility] performed at ([facility], = 2778) Department of Pathology, [address] [place] [address], Professional component [facility] was performed at ([facility], code = 2779) Department of Pathology, [address] [place] [address], [facility]03 Test Item Value Reference Range Interpretation Comments Case Report (test code Medical Cytology = 104) Report Case: [id number] Authorizing Provider: Minal Joy MD Collected: 10/08/2022 02:53 PM Ordering Location: [address] Received: 10/10/2022 09:36 AM Service Pathologist: Jimena Anton MD Specimen: Pleural, Left DIAGNOSIS (test code = [id number] 3220) FuZzEwMzNcZnRuYmpcdWMx IHtccnRmMVxlcGljOTYwMl rndlBmDTRkcARgE8Trmfle ATytBN9oLW0giArpzHTfiR ZdMXNaQjXsy2itu328mUJv d2jhIHJByvhqbTe3fYunO2 6lb7G4ZnwuC70jjMAjCNM9 KEFbQFWyeVIkCWKsRTP7XE YevFHnR1ndXOLdVL5nofce SJknHDhzRAKjnFD5VSTgyZ DoB9BdAUTmDMcsQYTrbzx9 FvKxBk0ntUDwfCvzWMhqGM JkXHBsYWluXGZzMjAgTEVG VCBQTEVVUkFMIEZMVUlEIC aNYWLJW3VKUpSdWB9HYEEU REhuGssVR4gvQufyuV1jTC NrGQ7mIQRLHcDgTKIQLRhL THorN0RTAKPsTTORI7CDM8 uOGSZuWq1KYY4CSFeGPoUB T4ssQYGVWQMYD10WGT8FPG ykMTD6u5fncZJnQMAoxRBz ODAwMFxhbnNpXGRlZmxhbm odTKCvGCI2qoNgWQLkEMmb MMAcKXpdSa0twTCftWayPf QqHIFzy6kvgqLGnxyfyVv5 d5yrGVLoOlI4gIApNPuaX2 blrjNusGMeQWPnPHs6oY70 RCZelS3zaGJwGAsfopRfHh K4QTmgEOIeLkH2BQLofCUm DKOjU2avVWQpVKvdSXTaLW jgqSTyBGV3oEipb0W0hPWw aGVldHtcZjBcZnMyMiBOb3 FcUCs7xSwvB7BtZFKwVtL1 bHQgUGFyYWdyYXBoIEZvbn O0hV52RJajmrE6xRPxe7Fp m87ds638xZ6ziBKfAUG8YI OeQGExjQKoMPItSJJ4KQKe fCNfV2vgWPGgQS5fazngUG woWKxoQWJotAT2YNVbzEXf R5CyKKErJUlhEMHrnbo8Vs ZoEw8rlHEvfXhqKQong4ps r4qulCIuAmd0XZSoQpLxMp kaFFncs2Noc7omTGKkhm1x GBG6gBYkkHdpp7Z2kPWuWU CrdFJdDGSrSK3nuFDbXWMc cX5cnnpaENGrXsPjnqdrCC RdqLfmuvGeLj9pcHhnQVY6 JDqkT9amuX7rEvN9SPdaI4 yflG5lAKt2DBnjBUHbqHN8 alE6TDTtzGYfF3HakE4jLA IiCV2huey7k7yvWUY1SNoo KVAlJnO1ddL5GPPgtUYxPI XtwHqtVHqhx003ALL1QgZe BNDpi0VcD1LiwWsnM33cdV oeR75vWDXcvHdltM2foQrd bW9oTmNsNxWnAGulhNwvHG 6lQWEkB2oliWQaAFVhQXJx D4ynJxHneM1iwLraLBleab YvPSYlBwh9PAPfvRYbQBIl Dvk2EBNyVQJtU77baklvFX T6wO1ci6uzt0JbABmlIPK5 DDIdy09sYPjyauM1RCzuFk 79XHthUDE4CZfoMKQ2fC== COMMENT (test code = o4dmxGYwTMZloUY1OgTsJS 3168) Gje0txx7YgyETksDScEVlb tDLhlzPsop79oGE2rO31SC 8vCSAwBjS0QHXykdV2Lpj7 VXNhNQWuaTQqF024t8ihi6 btcbPhcQG9pEuiHJTpjapu LlO2COkfSQRcijsbVBl1DZ xzHNSuhXP3TDNecUCqS5Ig TPYjVW8ppdc1LWB6WAxgFS XtVmG1EBBzzVThXKQltVei ZJzze783DDZ9QtSqURJoqe PinLilkV0wZqWaPOBOwDBu k2MwB1lmOD3oeOKbT61mnX 0hBHUqh9MxmcZtU2QcydLc gLGuv0RrJQqiDNckG4PbcQ HeCE0cYFFblu4mcVMlzZ0m sMClxUK2iS4rEwBCreV5zD RuU1YjyFYujY5nnkHxZCJw jltpjGgjTI1oHHN9vKhhVG kkY9EljEPrn4HiYKFojAkq bGlhbCBjZWxscyBpcyBpZG LnkXnunAFtGRAjDHAtf1Nn oN2mBOTxq7z8wSOqiObvMf 1jOEHofJ92VKQTI3HvOSsj LfNpBNSpQJ7kJKdwn5XyQ7 YupQHiFJCzUV9cvBTnRPRa hPa3CPumTB53iZZvVGFhx4 0baBkfYBH5rF8xzKmvnspw HfF6JBAphwOuCDGgb0Zay8 8bHYBxs9N5TXqjZoRYyIBv ZWZvcmUsIHRoZXNlIGZpbm RpbmdzIGFyZSBpbnRlcnBy ZXRlZCBhcyBhdHlwaWNhbC PmANgvgqlki4YulZjssH67 poRyg2DcuFZzuUuvDR6ppI 0yMLWuxtndFNXxJb8zR2Pb TXQNVJBjs78kvAFjWZjpfR akrJizs2AyVcgsKKsqI9Kp XHBhcn0= CPT Code(s) (test code u6dsvALvCTYlqAB5NbUvBR = 3357) Hwd2gby4LssCRbkAHwQUsu hWZfizBekr85sNJ1cV44AK 7aNXRdHpB3LJCsicD5Hmx2 SVDlPYEdfXDhV761r9fav1 hdojCiwGJ2oQciOBHqtedx LpJ2XFwnXOJlhszuSAw6EI vjIUVoxIN7CWQoxGCyP0Fq KLYkPZ6fzqn4EXF4VGkiYP QxSkZ6SACzcLOdHORyuQtb EFace557RNA8PxFbBWOlyb RcbGelrE3zCtUkICF2HOUx YCqjABinVUMoJGx3AdHbNT D3VIU0UXlgRYZhim3= CLINICAL DATA (test z2fegKTrYWJqlWW6LsNqRS code = 3355) Jmg7hmq6VkaYBysWAxYRbv cGUjicYbom20lRW0yM63ZF 5xHKMbKeV3YJCrxkF4Meq4 SRYzDSQvcFGnZ254h7vyp9 gfspJxvGW3RLZePKKhM5Dn CP8oXNRwfSBfF81roWQsHD A7BHBcXPEjuBDsFXXgBYD1 IGDpsBDqM1xjRFBoEY0wkg sjYCuiUAtlNYSwsGV1GOBm oXKgA1EwYMYmLLbmQSYzyq p3FfZzXh7kxMWsgInsZXms YXJkXHBsYWluXGZzMjBcY2 JvRNn1EIedrs3xhdMbnVAw ZVx+a8t9aMEMLWnqm8NkNW 5IRnJFRiAoRUYgNDAtNDQl AHenW8KAMJCyZALvCcbclN J2BVZ9ERCfUcCbjeRkiMOr IGNhbmNlciwgXGNmMCBtYW jfN45ikgEdnYtlwCWrvGWk XvY5h1ujgyBmEPYbxk3kwJ FbrTewd1wbAnDsKOKupHAg aZ3snHMvZNuhxMVlTTnppy AyTCBOQyksXGNmMVx+cmVj VW46MNMjkXm8FVLcubEmK8 I1GYLreoAnvOQecnotOQGj vcMtKQtdoRTgAQ7kPBRhAs RfEsTeQQMrDyntJaCcLU5l S9UlVIGyGFHxnaIaHWLwNM EgdHJhbnNmZXIgZnJvbSBC bcR4v8Zzk8A6XABijiAaxA C2fWJoBBN6ZFq1MMOve51f i8PeXYQro46yFY2bNYXmAS YHHXKlVR6elHUshC== SPECIMEN SOURCE (test h5duhYWcEGJnuBK6PqZgFG code = 3377) Uul5qbe1KjsRNlsEDlYXus rARvbtGpij64sTB3zR51MK 8eXYZuSfV2MTPllqZ8Rgu2 MDRwRECfuCPhM431m3etj1 xpsuPeeOF9qUxxHHYfobmi QuO6ILasEEFtkwdhLSg0OO buURXdjFY7IVPowRVrK5Ob PEStUC6ujng1MGS3XFuvDF BvEnN4JGWfzEVkEIErhTxt TUcjr813TSR7PbStNZRwce PweDtqrG7bKhDvXSFIBDOF IFBMRVVSQUwgRkxVSURccG FyfQ== GROSS DESCRIPTION (test h0bnrBFkWMFazXIPXXNwZ0 code = 3353734467) rqvpUdEEPhcWVlT1Obuipj KQpjXL9yUR1xsXmcgWYwhK ApAD3OMGZrOcNeTEOapOZq ovIeNkMnXVEipMSrcJO7HY BaHG2okyshZUzuHGqhORWg ngN8RDWbsUTiS8XbXEJnCH 8mxlnsYZX0KIlfwT7fpaQS WtqzZn5xqSAnsBcrIiKcDz NoYXJzZXQwXGZuaWwgQXJp EQs6tU8YIweiGSB7SIDWDc vdIRReAN2Dw3guFDVtlFBf QLS1XOsgjYKpEWXnEBFcGJ b9DZRgWUfiaOEkJZ3jkKif VqbwaKzol7VfxPFlTGflAF IjPKMrMRajHDFzBL5TRhVv FQMmPRMqIOtuUTq2FSc8AP 9WUyAiICAzMTAxNzIwNiIg FKs9GTwgKG7HLJObGEy8WY wmVoX8IUO2PnXuXFFnQuWr XGYgQXJpYWwgXFxmbCBcXG 2apEyilNIwklWRKlXSmNB3 ikOdHKRTYLM1KnztTGUgLM cbYEJhR31zy7SRw2BfXN5N LHd6jvNygsdhhX8oEQWzcs ZjBUxywEXkR8lkJgUkEBTP LCLalULtRWA1JKGppLnmYD FtYmVyIGZsdWlkOyBwcmVw TEQpWNX0VWW2pI5upKursh QohlSjG0FvmLWytP0bvlsU QzraDVGbq4NclExaYIDmhD paZqfaC4gbr0BndVTmBTIm iUZbdnuqaBPkOPEfPsy8AO QawoPaxY1wbRwzHVG9uETk vkSsPSAmm68tXKLrdObaXJ WpSOOdaBY8NVDfMmo2LXGi pK9rEx5kfEDbgW2dIXXkWT Q3GLDjrW8qs53nZFRyWdKv MjAyMiANClxwbGFpblxlcG abWeXfjABvOrLalXzbeP29 JPCbcXQqWDX6JQ3eSBFzfp trHBBnOHUhISS7JZekuO14 jIBsCLJtYNDnjNQboY7NST JoWFD4PLmxfU11oMCtNM8H PFPyXCB7JTHudLPuHWU9TS 8mwA8OjM== MICROSCOPIC DESCRIPTION x7quxDNzSHJlhMJ9GjCxWK (test code = 3371) Jim8nbw1JdtVRxnOWwVYyg nUOixnWnrk42cTC2wL66GC 5qGYIaMvX3VMMiqkL3Gbr2 WKIiPAGaeUScI850l1zgv8 svlwIggMZ1pLhuNBMcfuqr MyV7EJybUVBfxxoyNNs4FV bfCFYqkMN3KBCgpQIfO9Tw NZSnJV7nmkg3JWR1RZceHK DwZkQ6KGAqvBRrTVBkkXss WKecc309CPW3PzYvVWKidx XadTvztP7aZtLwAMNKIRQa g6AiPKXmMUnjZIA2 STATEMENT OF ADEQUACY Satisfactory (test code = 2757) SPECIAL STUDIES (test e4pteHCpGWJks7umORDyoZ code = 3376) FuZzEwMzNcZnRuYmpcdWMx HDnnaxInELucs2SmP0YuNy AwMFxhbnNpXGRlZmxhbmcx JEWvFJE3sgBiVQCxXIrjRO BwBTjsKy8vdYZjiYjsMkNd LIIvq0henlIOydvinVy0s8 puINQfRkZ9yDHiEIfcR7az zxWrnHNlJ8LjsOWspDc0a1 paBhXbAdA5rOKlPOeiR6jk loJpoBIkMFRpEAr6oB08KN MkkV5doVPnNCugrcZlJbF5 YZvkCOOlWjE1GACdyVPcXU ZcD9qzCIChXKopFKJyYBfd aVFvNNF9aZdkg9Q7xNWjbE FkdZbySoToMqJoQhSXt4Ty QXp8dSrvR4HxVWXhGtZ2eF QgUGFyYWdyYXBoIEZvbnQ7 aPdzmuRgf33qoIGqAYDoBF FwWlIxhSehARUyMUWUt4Gp eBkaOWV9qMl7oQgzGnejJL E3Ove6JY0mri06uwi0lZlo GMEndxkvYzX1XNrpCCCcdj ugYRg7XHdiJSTkaFI6VPEs oMVvL6FnKWPeZL4kldy8VG N8UPfhOQUzVgM3LASmwUSg INSneCpaYIzbi422RBT6Vz SaOE6pG0Qks7F6vE1iqJGq XJCfkOEcXsWfPFGuda4bgZ NpJBhki5FuZKG4clX4iQJo kSJqLJUyAS86Fjwnq5NaEf zhn6IlA05neEK9VRjsb7tz AS3dIfI4hgCsKLgsd1obmO 4dXbQ2BFglIC0mCW2qIUDf sS5iyqimJOTrHlIuokzzZC GizXflkbGuSb0ctEcyVFD3 ZWqpZ4cmpC6dGdU3RNreD3 xtlS7xIXy4TAlehDY8ONDn nL7vIR8gotask0dhZJmaDJ kyTTOghbX6ysC9PDTxjGBn Q1DojC3gFGKhXR1rmkzdi2 yoNCY4CNtjEMKyOYG9GkTe LCJuc8Roycm4SuPvo4IlwA GiMGdzQ59ot298RGIkvsDj P0xjbMJzrivtjDXklvsjPC hfzdH6XUXzTSXzDTiwAWQr XGZzMjJcbGFuZzEwMzNcaG ljaFxmMVxkYmNoXGYxXGxv D2qqQvKyC2RyHMEgDgGzWC kyLNsdgBKkgQJnzTQ3lH1o RW6lGVVngTMmU8AuGZPmci WueQQsFOV9eGZmqSCuJN9d KNlzgURum1pcy6YzZ2dqgC xkgQL3HI8lCNAxWWVqKHsw z8GbmS9tBtaveNCkennqIX xmczIyXGxhbmcxMDMzXGhp C9xpDmJzEBFjaDwyNSwkk3 NoXGYxXGNmMlxmczIyXGx0 cmNoXHBhclxwYXJccGxhaW 3yZuDeViBqDgrsSA2aHAAu X8vofJCcTMQoJALfK6pjVb UnnA8dvFbjUOufCgOhRmTl EjRHc893ow4dVLRegUJtli HFcQDvlU7vGIwlSLofURhh rYNcOIxrk3srENOdx1g9pR UtNBZgtaOhi8wkBWyzecEt XQXxiKAcvSZyREOwn73xRZ uerBsamXdcHWHlg6YfeDng e0MsIdYdDElaf8WuT11olV JvbCBzbGlkZXMgcnVuIGFs p20fp5lvTCDoXdS3pOZywC C3gVTkfUCzm5CxoNivTLOc w0uaWRNmlv8kuynssJChf3 GnyZ6aydfkIAakyJYxabCv TMXpb5v9oWMfRSXrNHWiRJ hweMb9LZYaw515wi7jznR4 mLNzRFL1UXglSGAqPTTwgj UgZXZhbHVhdGVkXHBsYWlu XGYxXGZzMjJcbGFuZzEwMz NcaGljaFxmMVxkYmNoXGYx NDajO5rdItXeW9RiLCEfQg SekUYaX9nllJDsKDRqDPpd XGYxXGZzMjJcbGFuZzEwMz NcaGljaFxmMVxkYmNoXGYx ZDtoW2nfScZvU4YhTNSnYt IgIFxwbGFpblxmMVxmczIy PKbduxjcYLYfAGtgX8kpNt KdFFSdbWmvFXqcz2AzSPSw KMDdDwalnqKwNCn2ngCqLJ BhclxwbGFpblxmMVxmczIy AHlyesqtZBRrEZjeG9zdOh DpOKWmuZmuWMvjh4HfCGPo XGNmMlxmczIyIEltbXVub2 heq4MiL1fsdRwoqPJ3PVLf S1asrGNheZE2ERT4gV0sMH foymUpGUKim3QjUVSsELKz IgI5uB8gGHD6AjPDlRhbXQ BsYWluXGYxXGZzMjJcbGFu ZzEwMzNcaGljaFxmMVxkYm LkTXYqXIcoZ9wiTdBdQ6Jc BHSdMsEenZtyPJolINc8Rs xwbGFpblxmMVxmczIyXGxh myzsZIGlULgsT3hoBbDlAP FmjIveEFnxi1IlHTDeDEVm MlxmczIyIHMgTWVkaWNhbC PJPJ89HYSnDPRysGovcZ7x dLLGHFPwnkK2i4W2RSreOM RwXXg0SHjvfqSyBNGnjY7g MRCgEO6lZBu0byIrBQPwv5 RvLZ6mGLNdtTEqEMO5VJDv f4TyA0Ysw7OeDJPhBXJgif 1dfmViTdODsYZyDMWlyo75 JMOmKN7wI3skMONhRYQoeu MetLSyn2MpDOQgtGX5fAUr FO9ZVmYMp82uZMKpWFCBnx DyIYEmqSnvrPO2viL1dA3x LiBUaGUgRkRBIGhhcyBkZX Sfjs4sakClOPFaISVcb6Mv sHSegZJdklQyJ1Agd9WmNA Fekt34YHsicEPlsf18GV1r X2Bta1ScpT5sFTyyOXWwt6 LkbQWthPDxMIZur4ZdS6lz jgkgHAdatOZwkO0rUDRkXK v1VBMrc4SgNGSqz0PqHiZc ivTzLHAuNEOxNLHlbX67KM E6tOzwwRcoieSxNT0fYRHu zcSjWLUjQVQayR9xTZgwid YmHESmbeK9w9Q4VZzvJMOv ehKcBshhJYP6flPwnoZ3hX DwN7jgimhrEPskJMSks4Yl cR0xuCNCbYBun3JoxOMhcQ IYhUOiYQ8tajByRE9aYLV1 ODggKENMSUEtODgpIGFzIH F0JEonJvolSAL7noWkIBEt u1IhUZoaZ0fhN55dkKhvgM m7oTYacLzjlQUqnHUeXDZl rmU6p8I9SEXon9KjjjjyYG BsYWluXGYyXGZzMjJcbGFu ZzEwMzNcaGljaFxmMlxkYm PnKGLgUTbbJ9ncWzGuGjBq VqteSIX0lL== Gross assessment was [facility] performed at ([facility], = 2777) Department of Pathology, [address] [place] [address], Technical component was [facility] performed at ([facility], = 2778) Department of Pathology, [address] [place] [address], Professional component [facility] was performed at ([facility], code = 2779) Department of Pathology, [address] [place] [address], [facility] 15[facility]38:03Medical Cytology Report Case: [id number] Authorizing Provider: Minal Joy MD Collected: 10/08/2022 02:53 PM Ordering Location: [address] Received: 10/10/2022 09:36 AM Service Pathologist: Jimena Anton MD Specimen: Pleural, Left LEFT PLEURAL FLUID (CYTOSPINS AND CELL BLOCK): - RAREATYPICAL CELLS, SUSPICIOUS FOR MALIGNANCY (SEE COMMENT) Signing Pathologist Direct Phone Line: [phone] signed by Jimena Anton MD on 10/14/2022 at 3:38 PMThe specimen is composed ofreactive mesothelial cells and chronic inflammation. On the cell block material, an atypical group of epithelial cells is identified that stains positively for Dallas-8, MOC31, Miquel-Ep4. These cells are not readily identified on the cytospins, but a rare psamomma body is. Therefore, these findings are interpreted as atypical cells, suspicious for malignancy. Phan Gillette MD concurs with these findings.[id number], [id number], [id number], [id number] y.o. female with PMH of HFrEF (EF 40-44%), CAD, pAfib, metastatic ovarian cancer, malignant pleural effusions, chronic hypoxic respiratory failure (on 2L NC), recent admit for acute on chronic res failure on 09/19/22-09/28/22 Presents as a transfer from [facility] for further evaluation of decompensated CHF. LEFT PLEURAL FLUIDA. Pleural, Left.Received 800 mls tirso fluid; prepared 4 cytospins and cell block(A2) - for the cell block we used cytorich red fixative to lyse the red b lood cells and it was fixed in formalin at 12:41 pm on 10/10/2022 Performed. SatisfactoryThe interpretation of this case included the use of immunohistochemistry or special stains.Control Slides Examined: In-house known positive controls were evaluated along with the test tissue. These control slides run alongside of the patients sample show appropriate staining. Internal positive and negative controls when available are evaluated Immunohistochemistry technical testing was performed at [facility], Pathology Laboratory where it was developed and its performance characteristics were determined. It has not been cleared or approved by the U.S. Food and Drug Administration. The FDA has determined that such clearance or approval is not necessary. The test is used for clinical purposes. It should not be regarded as investigational or for research. This laboratory is certified under the Clinical Laboratory Improvement Amendments of 1988 (CLIA-88) as qualified to perform high complexity clinical laboratory testing.[facility], Department of Pathology, [address] [place] [address], [facility], [address] [place] [address], [facility], [address] [place] [address], Rxim fluid culture + gram [id number] 08:02:58 Test Item Value Reference Range Interpretation Comments Result (test code = 6463-4) [facility] [id number] 08:02:58 Test Item Value Reference Range Interpretation Comments Result (test code = 6463-4) No [facility] gram [id number] 08:02:58 Test Item Value Reference Range Interpretation Comments Result (test code = 6463-4) No growth [facility] gram [id number] 08:02:58 Test Item Value Reference Range Interpretation Comments Result (test code = 6463-4) No [facility] gram [id number] 08:02:58 Test Item Value Reference Range Interpretation Comments Result (test code = 6463-4) No growth [facility] gram [id number] 08:02:58 Test Item Value Reference Range Interpretation Comments Result (test code = 6463-4) No growth [facility] gram [id number] 08:02:58 Test Item Value Reference Range Interpretation Comments Result (test code = 6463-4) No growth [facility] gram [id number] 08:02:58 Test Item Value Reference Range Interpretation Comments Result (test code = 6463-4) No growth [facility] + GRAM [id number] 08:02:58 Test Item Value Reference Range Interpretation Comments CULTURE (BEAKER) (test code = 1095) No growth Prepare [id number] 23:54:00 Test Item Value Reference Range Interpretation Comments CROSSMATCH (test code = 2264) COMPATIBLE Unit ABO (test code = A Pos 4226785) UNIT NUMBER (test code = [id number] 934-0) Status (test code = 2934478) TX_TIMEINCHART Blood Bank Product (test code RED BLOOD CELLS = 2263) PRODUCT CODE (test code = U6633E43 933-2) [facility] [id number] 23:54:00 Test Item Value Reference Range Interpretation Comments CROSSMATCH (test code = 2264) COMPATIBLE Unit ABO (test code = A Pos 8043426) UNIT NUMBER (test code = [id number] 934-0) Status (test code = 4185622) TX_TIMEINCHART Blood Bank Product (test code RED BLOOD CELLS = 2263) PRODUCT CODE (test code = [id number] 933-2) [facility] [id number] 23:54:00 Test Item Value Reference Range Interpretation Comments CROSSMATCH (test code = 2264) COMPATIBLE Unit ABO (test code = A Pos 9735556) UNIT NUMBER (test code = [id number] 934-0) Status (test code = 9355035) TX_TIMEINCHART Blood Bank Product (test code RED BLOOD CELLS = 2263) PRODUCT CODE (test code = Y3066J94 933-2) [facility] [id number] 23:54:00 Test Item Value Reference Range Interpretation Comments CROSSMATCH (test code = 2264) COMPATIBLE Unit ABO (test code = A Pos 3231778) UNIT NUMBER (test code = [id number] 934-0) Status (test code = 6001658) TX_TIMEINCHART Blood Bank Product (test code RED BLOOD CELLS = 2263) PRODUCT CODE (test code = I4739S61 933-2) [facility] [id number] 23:54:00 Test Item Value Reference Range Interpretation Comments CROSSMATCH (test code = 2264) COMPATIBLE Unit ABO (test code = A Pos 2945127) UNIT NUMBER (test code = [id number] 934-0) Status (test code = 0712512) TX_TIMEINCHART Blood Bank Product (test code RED BLOOD CELLS = 2263) PRODUCT CODE (test code = C9619Z03 933-2) [facility] [id number] 23:54:00 Test Item Value Reference Range Interpretation Comments CROSSMATCH (test code = 2264) COMPATIBLE Unit ABO (test code = A Pos 2200776) UNIT NUMBER (test code = [id number] 934-0) Status (test code = 1250610) TX_TIMEINCHART Blood Bank Product (test code RED BLOOD CELLS = 2263) PRODUCT CODE (test code = Q0898K84 933-2) [facility] [id number] 23:54:00 Test Item Value Reference Range Interpretation Comments CROSSMATCH (test code = 2264) COMPATIBLE Unit ABO (test code = A Pos 1214241) UNIT NUMBER (test code = [id number] 934-0) Status (test code = 2447111) TX_TIMEINCHART Blood Bank Product (test code RED BLOOD CELLS = 2263) PRODUCT CODE (test code = M6810S71 933-2) [facility] [id number] 23:54:00 Test Item Value Reference Range Interpretation Comments CROSSMATCH (test code = 2264) COMPATIBLE Unit ABO (test code = A Pos 7917323) UNIT NUMBER (test code = [id number] 934-0) Status (test code = 5163429) TX_TIMEINCHART Blood Bank Product (test code RED BLOOD CELLS = 2263) PRODUCT CODE (test code = J9022U46 933-2) [facility] 04:46:14 Test Item Value Reference Range Interpretation Comments FERRITIN (BEAKER) (test code = 138.62 ng/mL 5.00-275.00 361) [employer] ID - [place] GCOMPREHENSIVE METABOLIC [id number] 04:28:51 Test Item Value Reference Range Interpretation Comments TOTAL PROTEIN 5.8 gm/dL 6.0-8.3 L (BEAKER) (test code = 770) ALBUMIN (BEAKER) 3.1 g/dL 3.5-5.0 L (test code = 1145) ALKALINE 51 U/L 40-150 PHOSPHATASE (BEAKER) (test code = 346) BILIRUBIN TOTAL 1.6 mg/dL 0.2-1.2 H (BEAKER) (test code = 377) SODIUM (BEAKER) 138 meq/L 136-145 (test code = 381) POTASSIUM (BEAKER) 3.3 meq/L 3.5-5.1 L (test code = 379) CHLORIDE (BEAKER) 99 meq/L 98-107 (test code = 382) CO2 (BEAKER) (test 31 meq/L 22-29 H code = 355) BLOOD UREA 25 mg/dL 7-21 H NITROGEN (BEAKER) (test code = 354) CREATININE 0.93 mg/dL 0.57-1.25 (BEAKER) (test code = 358) GLUCOSE RANDOM 99 mg/dL 70-105 (BEAKER) (test code = 652) CALCIUM (BEAKER) 8.2 mg/dL 8.4-10.2 L (test code = 697) AST (SGOT) 15 U/L 5-34 (BEAKER) (test code = 353) ALT (SGPT) 9 U/L 6-55 (BEAKER) (test code = 347) EGFR (BEAKER) 59 Interpretatio n of eGFR (test code = [...] not appl icable for dialysis patien ts [employer] ID - [place] [id number] 04:28:51 Test Item Value Reference Range Interpretation Comments MAGNESIUM (BEAKER) (test code = 1.7 mg/dL 1.6-2.6 627) [employer] ID - [place] LIM, TIBC, % SAT. (WITHOUT FERRITIN)2022-10-10 04:26:09 Test Item Value Reference Range Interpretation Comments IRON (BEAKER) (test code = 547) 34.0 ug/dL 40.0-160.0 L TOTAL IRON BINDING CAPACITY 310 ug/dL 250-450 (BEAKER) (test code = 769) IRON % SATURATION (2) (BEAKER) 11 % 20-55 L (test code = 2590) [employer] ID - [place] GCBC W/PLT COUNT & AUTO [id number] 04:04:18 Test Item Value Reference Range Interpretation Comments WHITE BLOOD CELL COUNT (BEAKER) 6.1 K/ L 3.5-10.5 (test code = 775) RED BLOOD CELL COUNT (BEAKER) 3.31 M/ L 3.93-5.22 L (test code = 761) HEMOGLOBIN (BEAKER) (test code = 8.9 GM/DL 11.2-15.7 L 410) HEMATOCRIT (BEAKER) (test code = 28.6 % 34.1-44.9 L 411) MEAN CORPUSCULAR VOLUME (BEAKER) 86 fL 79-95 (test code = 753) MEAN CORPUSCULAR HEMOGLOBIN 26.9 pg 25.6-32.2 (BEAKER) (test code = 751) MEAN CORPUSCULAR HEMOGLOBIN CONC 31.1 GM/DL 32.2-35.5 L (BEAKER) (test code = 752) RED CELL DISTRIBUTION WIDTH 18.3 % 11.7-14.4 H (BEAKER) (test code = 412) PLATELET COUNT (BEAKER) (test 255 K/CU MM 150-450 code = 756) MEAN PLATELET VOLUME (BEAKER) 9.1 fL 9.4-12.3 L (test code = 754) NUCLEATED RED BLOOD CELLS 0 /100 WBC 0-0 (BEAKER) (test code = 413) NEUTROPHILS RELATIVE PERCENT 63 % (BEAKER) (test code = 429) LYMPHOCYTES RELATIVE PERCENT 24 % (BEAKER) (test code = 430) MONOCYTES RELATIVE PERCENT 11 % (BEAKER) (test code = 431) EOSINOPHILS RELATIVE PERCENT 1 % (BEAKER) (test code = 432) BASOPHILS RELATIVE PERCENT 1 % (BEAKER) (test code = 437) NEUTROPHILS ABSOLUTE COUNT 3.85 K/ L 1.56-6.13 (BEAKER) (test code = 670) LYMPHOCYTES ABSOLUTE COUNT 1.48 K/ L 1.18-3.74 (BEAKER) (test code = 414) MONOCYTES ABSOLUTE COUNT (BEAKER) 0.66 K/ L 0.24-0.36 H (test code = 415) EOSINOPHILS ABSOLUTE COUNT 0.07 K/ L 0.04-0.36 (BEAKER) (test code = 416) BASOPHILS ABSOLUTE COUNT (BEAKER) 0.03 K/ L 0.01-0.08 (test code = 417) IMMATURE GRANULOCYTES-RELATIVE 0.70 % 0.00-1.00 PERCENT (BEAKER) (test code = 2801) Lactate dehydrogenase (LDH), body [id number] 21:19:45 Test Item Value Reference Range Interpretation Comments LDH, Fluid (test 76 U/L code = 60133-6) ANGE (test code = Absence of reference ANGE) range indicates that normals have not been defined.Assay performance has not been validated for this type of specimen. [employer] ID - [id number] [facility] body [id number] 21:19:45 Test Item Value Reference Range Interpretation Comments LDH, Fluid (test 76 U/L code = 96831-3) ANGE (test code = Absence of reference ANGE) range indicates that normals have not been defined.Assay performance has not been validated for this type of specimen. [employer] ID - [id number] [facility] (LD[facility]), body [id number] 21:19:45 Test Item Value Reference Range Interpretation Comments LDH, Fluid (test 76 U/L code = 55504-4) ANGE (test code = Absence of reference ANGE) range indicates that normals have not been defined.Assay performance has not been validated for this type of specimen. Nuclear Powerplant Mechanic Helper ID - [id number] [facility] [id number] 21:19:45 Test Item Value Reference Range Interpretation Comments LDH, Fluid (test 76 U/L code = 64886-8) ANGE (test code = Absence of reference ANGE) range indicates that normals have not been defined.Assay performance has not been validated for this type of specimen. Nuclear Powerplant Mechanic Helper ID - [id number] [facility] body [id number] 21:19:45 Test Item Value Reference Range Interpretation Comments LDH, Fluid (test 76 U/L code = 05951-8) ANGE (test code = Absence of reference ANGE) range indicates that normals have not been defined.Assay performance has not been validated for this type of specimen. Nuclear Powerplant Mechanic Helper ID - [id number] [facility] body [id number] 21:19:45 Test Item Value Reference Range Interpretation Comments LDH, Fluid (test 76 U/L code = 99321-6) ANGE (test code = Absence of reference ANGE) range indicates that normals have not been defined.Assay performance has not been validated for this type of specimen. Nuclear Powerplant Mechanic Helper ID - [id number] [facility] body [id number] 21:19:45 Test Item Value Reference Range Interpretation Comments LDH, Fluid (test 76 U/L code = 70600-4) ANGE (test code = Absence of reference ANGE) range indicates that normals have not been defined.Assay performance has not been validated for this type of specimen. Nuclear Powerplant Mechanic Helper ID - [id number] [facility] body [id number] 21:19:45 Test Item Value Reference Range Interpretation Comments LDH, Fluid (test 76 U/L code = 22089-0) ANGE (test code = Absence of reference ANGE) range indicates that normals have not been defined.Assay performance has not been validated for this type of specimen. Nuclear Powerplant Mechanic Helper ID - [id number] [facility]LACT[facility] DEHYDROGENASE (LDH), BODY [id number] 21:19:45 Test Item Value Reference Range Interpretation Comments LACTATE DEHYDROGENASE FLUID (BEAKER) 76 U/L (test code = 634) Absence of reference range indicates that normals have not been defined.Assay performance has not been validated for this type of specimen.Nuclear Powerplant Mechanic Helper ID - [id number], body [id number] 21:16:41 Test Item Value Reference Range Interpretation Comments Protein, Fluid (test 1.2 g/dL code = 2881-1) ANGE (test code = Absence of reference ANGE) range indicates that normals have not been defined.Assay performance has not been validated for this type of specimen. Nuclear Powerplant Mechanic Helper ID - [id number] [facility] HospitalProtein, body [id number] 21:16:41 Test Item Value Reference Range Interpretation Comments Protein, Fluid (test 1.2 g/dL code = 2881-1) ANGE (test code = Absence of reference ANGE) range indicates that normals have not been defined.Assay performance has not been validated for this type of specimen. Nuclear Powerplant Mechanic Helper ID - [id number] [facility]Protein, body [id number] 21:16:41 Test Item Value Reference Range Interpretation Comments Protein, Fluid (test 1.2 g/dL code = 2881-1) ANGE (test code = Absence of reference ANGE) range indicates that normals have not been defined.Assay performance has not been validated for this type of specimen. Nuclear Powerplant Mechanic Helper ID - [id number] [facility]Protein, body [id number] 21:16:41 Test Item Value Reference Range Interpretation Comments Protein, Fluid (test 1.2 g/dL code = 2881-1) ANGE (test code = Absence of reference ANGE) range indicates that normals have not been defined.Assay performance has not been validated for this type of specimen. Nuclear Powerplant Mechanic Helper ID - [id number] [facility]Protein, body [id number] 21:16:41 Test Item Value Reference Range Interpretation Comments Protein, Fluid (test 1.2 g/dL code = 2881-1) ANGE (test code = Absence of reference ANGE) range indicates that normals have not been defined.Assay performance has not been validated for this type of specimen. Nuclear Powerplant Mechanic Helper ID - [id number] [facility]Protein, body [id number] 21:16:41 Test Item Value Reference Range Interpretation Comments Protein, Fluid (test 1.2 g/dL code = 2881-1) ANGE (test code = Absence of reference ANGE) range indicates that normals have not been defined.Assay performance has not been validated for this type of specimen. Nuclear Powerplant Mechanic Helper ID - [id number] [facility]Protein, body [id number] 21:16:41 Test Item Value Reference Range Interpretation Comments Protein, Fluid (test 1.2 g/dL code = 2881-1) ANGE (test code = Absence of reference ANGE) range indicates that normals have not been defined.Assay performance has not been validated for this type of specimen. Nuclear Powerplant Mechanic Helper ID - [id number] [facility]Protein, body [id number] 21:16:41 Test Item Value Reference Range Interpretation Comments Protein, Fluid (test 1.2 g/dL code = 2881-1) ANGE (test code = Absence of reference ANGE) range indicates that normals have not been defined.Assay performance has not been validated for this type of specimen. Nuclear Powerplant Mechanic Helper ID - [id number] [facility] HospitalPROTEIN, BODY [id number] 21:16:41 Test Item Value Reference Range Interpretation Comments PROTEIN FLUID (BEAKER) (test code = 1.2 g/dL 579) Absence of reference range indicates that normals have not been defined.Assay performance has not been validated for this type of specimen.Nuclear Powerplant Mechanic Helper ID - [id number], body [id number] 21:15:43 Test Item Value Reference Range Interpretation Comments Glucose, Body Fluid 158 mg/dL (test code = 2344-0) ANGE (test code = Absence of reference ANGE) range indicates that normals have not been defined.Assay performance has not been validated for this type of specimen. Nuclear Powerplant Mechanic Helper ID - [id number] [facility]Glucose, body [id number] 21:15:43 Test Item Value Reference Range Interpretation Comments Glucose, Body Fluid 158 mg/dL (test code = 2344-0) ANGE (test code = Absence of reference ANGE) range indicates that normals have not been defined.Assay performance has not been validated for this type of specimen. Nuclear Powerplant Mechanic Helper ID - [id number] [facility] HospitalGlucose, body [id number] 21:15:43 Test Item Value Reference Range Interpretation Comments Glucose, Body Fluid 158 mg/dL (test code = 2344-0) ANGE (test code = Absence of reference ANGE) range indicates that normals have not been defined.Assay performance has not been validated for this type of specimen. Nuclear Powerplant Mechanic Helper ID - [id number] [facility] HospitalGlucose, body [id number] 21:15:43 Test Item Value Reference Range Interpretation Comments Glucose, Body Fluid 158 mg/dL (test code = 2344-0) ANGE (test code = Absence of reference ANGE) range indicates that normals have not been defined.Assay performance has not been validated for this type of specimen. Nuclear Powerplant Mechanic Helper ID - [id number] [facility]Glucose, body [id number] 21:15:43 Test Item Value Reference Range Interpretation Comments Glucose, Body Fluid 158 mg/dL (test code = 2344-0) ANGE (test code = Absence of reference ANGE) range indicates that normals have not been defined.Assay performance has not been validated for this type of specimen. Nuclear Powerplant Mechanic Helper ID - [id number] [facility] HospitalGlucose, body [id number] 21:15:43 Test Item Value Reference Range Interpretation Comments Glucose, Body Fluid 158 mg/dL (test code = 2344-0) ANGE (test code = Absence of reference ANGE) range indicates that normals have not been defined.Assay performance has not been validated for this type of specimen. Nuclear Powerplant Mechanic Helper ID - [id number] [facility] HospitalGlucose, body [id number] 21:15:43 Test Item Value Reference Range Interpretation Comments Glucose, Body Fluid 158 mg/dL (test code = 2344-0) ANGE (test code = Absence of reference ANGE) range indicates that normals have not been defined.Assay performance has not been validated for this type of specimen. Nuclear Powerplant Mechanic Helper ID - [id number] [facility]Glucose, body [id number] 21:15:43 Test Item Value Reference Range Interpretation Comments Glucose, Body Fluid 158 mg/dL (test code = 2344-0) ANGE (test code = Absence of reference ANGE) range indicates that normals have not been defined.Assay performance has not been validated for this type of specimen. Nuclear Powerplant Mechanic Helper ID - [id number] [facility]GLUCOSE, BODY [id number] 21:15:43 Test Item Value Reference Range Interpretation Comments GLUCOSE, BODY FLUID (BEAKER) (test 158 mg/dL code = 1528) Absence of reference range indicates that normals have not been defined.Assay performance has not been validated for this type of specimen.Nuclear Powerplant Mechanic Helper ID - [id number] SENSITIVITY TROPONIN [id number] 10:57:14 Test Item Value Reference Range Interpretation Comments HIGH SENSITIVITY 80 pg/ml See_Comment H [Automated message] TROPONIN I (test code = The system which [id number]) generated this result transmitted ref erence range: <=17. Th e reference range was not used to int erpret this result as normal/abnormal . Nuclear Powerplant Mechanic Helper ID - BSThe SUPERVISOR REWORK STAT High Sensitivity Troponin-I results should be used in conjunctionwith other diagnostic information such as ECG, clinical observations and information, and patient symptoms to aid in the diagnosis of CT.COMPREHENSIVE METABOLIC [id number] 07:13:30 Test Item Value Reference Range Interpretation Comments TOTAL PROTEIN 5.4 gm/dL 6.0-8.3 L (BEAKER) (test code = 770) ALBUMIN (BEAKER) 2.9 g/dL 3.5-5.0 L (test code = 1145) ALKALINE 50 U/L 40-150 PHOSPHATASE (BEAKER) (test code = 346) BILIRUBIN TOTAL 1.0 mg/dL 0.2-1.2 (BEAKER) (test code = 377) SODIUM (BEAKER) 138 meq/L 136-145 (test code = 381) POTASSIUM (BEAKER) 3.6 meq/L 3.5-5.1 (test code = 379) CHLORIDE (BEAKER) 100 meq/L 98-107 (test code = 382) CO2 (BEAKER) (test 31 meq/L 22-29 H code = 355) BLOOD UREA 31 mg/dL 7-21 H NITROGEN (BEAKER) (test code = 354) CREATININE 1.25 mg/dL 0.57-1.25 (BEAKER) (test code = 358) GLUCOSE RANDOM 104 mg/dL 70-105 (BEAKER) (test code = 652) CALCIUM (BEAKER) 8.2 mg/dL 8.4-10.2 L (test code = 697) AST (SGOT) 17 U/L 5-34 (BEAKER) (test code = 353) ALT (SGPT) 7 U/L 6-55 (BEAKER) (test code = 347) EGFR (BEAKER) 42 Interpretatio n of eGFR (test code = 1092) mL/min/1.[address] age Description sq m Result G1 Dionne l or high >=90 G2 Mildly decreased 60-89 G3a Mildl y to moderately 45-5 9 G3b Moderately to s everely 30-44 G4 Severl y decreased 15-29 G5 Kidney failure <15Reported eGF R is based on the CKD-EPI 2021 equation that d oes not use a race coefficientEsti mated GFR is not as accur ate as Creatinine Kailyn diamond in predicting glom erular filtration rate . Estimated GFR is not appl icable for dialysis patien ts Nuclear Powerplant Mechanic Helper ID - [place] [id number] 07:13:30 Test Item Value Reference Range Interpretation Comments MAGNESIUM (BEAKER) (test code = 1.9 mg/dL 1.6-2.6 627) Nuclear Powerplant Mechanic Helper ID - [place] GCBC W/PLT COUNT & AUTO [id number] 06:51:27 Test Item Value Reference Range Interpretation Comments WHITE BLOOD CELL COUNT (BEAKER) 6.7 K/ L 3.5-10.5 (test code = 775) RED BLOOD CELL COUNT (BEAKER) 2.66 M/ L 3.93-5.22 L (test code = 761) HEMOGLOBIN (BEAKER) (test code = 6.8 GM/DL 11.2-15.7 L 410) HEMATOCRIT (BEAKER) (test code = 22.2 % 34.1-44.9 L 411) MEAN CORPUSCULAR VOLUME (BEAKER) 84 fL 79-95 (test code = 753) MEAN CORPUSCULAR HEMOGLOBIN 25.6 pg 25.6-32.2 (BEAKER) (test code = 751) MEAN CORPUSCULAR HEMOGLOBIN CONC 30.6 GM/DL 32.2-35.5 L (BEAKER) (test code = 752) RED CELL DISTRIBUTION WIDTH 19.9 % 11.7-14.4 H (BEAKER) (test code = 412) PLATELET COUNT (BEAKER) (test 271 K/CU MM 150-450 code = 756) MEAN PLATELET VOLUME (BEAKER) 9.8 fL 9.4-12.3 (test code = 754) NUCLEATED RED BLOOD CELLS 0 /100 WBC 0-0 (BEAKER) (test code = 413) NEUTROPHILS RELATIVE PERCENT 71 % (BEAKER) (test code = 429) LYMPHOCYTES RELATIVE PERCENT 20 % (BEAKER) (test code = 430) MONOCYTES RELATIVE PERCENT 9 % (BEAKER) (test code = 431) EOSINOPHILS RELATIVE PERCENT 0 % (BEAKER) (test code = 432) BASOPHILS RELATIVE PERCENT 0 % (BEAKER) (test code = 437) NEUTROPHILS ABSOLUTE COUNT 4.72 K/ L 1.56-6.13 (BEAKER) (test code = 670) LYMPHOCYTES ABSOLUTE COUNT 1.34 K/ L 1.18-3.74 (BEAKER) (test code = 414) MONOCYTES ABSOLUTE COUNT (BEAKER) 0.58 K/ L 0.24-0.36 H (test code = 415) EOSINOPHILS ABSOLUTE COUNT 0.01 K/ L 0.04-0.36 L (BEAKER) (test code = 416) BASOPHILS ABSOLUTE COUNT (BEAKER) 0.01 K/ L 0.01-0.08 (test code = 417) IMMATURE GRANULOCYTES-RELATIVE 0.60 % 0.00-1.00 PERCENT (BEAKER) (test code = 2801) Body fluid cell count with [id number] 17:11:59 Test Item Value Reference Range Interpretation Comments Appearance (test code = Clear Clear 9335-1) Color (test code = Yellow Colorless, Straw A 6824-7) RBCs (test code = 54 See_Comment H [Automate d message] 52915-0) The system [employer] generated this result transmit lavon reference range : <=1 /cu mm. The reference range was not used to interpret this result as normal/abnormal . Adjusted WBC Count 63 See_Comment H [Automat ed message] (test code = 94143-5) The sy stem which generated this result transmit lavon reference range : <=5 /cu mm. The reference range was not used to interpret this result as normal/abnormal . Lining Cells (test code 0 See_Comment [Au tomated message] = 77968-0) The system [employer] generated this result transmit lavon reference range : <=1 /cu mm. The reference range was not used to interpret this result as normal/abnormal . % Segs (test code = 16 % 22404-8) % Lymphs (test code = 27 % 05852-4) % Monos (test code = 57 % 22391-2) % Eos (test code = 0 % 80383-8) % Baso (test code = 0 % 61781-8) Container Body Fluid EDTA Tube (test code = 2873) Lab Interpretation Abnormal (test code = 55432-0) [facility] with [id number] 17:11:59 Test Item Value Reference Range Interpretation Comments Appearance (test code = Clear Clear 9335-1) Color (test code = Yellow Colorless, Straw A 6824-7) RBCs (test code = 54 See_Comment H [Automate d message] 43479-2) The system [employer] generated this result transmit lavon reference range : <=1 /cu mm. The reference range was not used to interpret this result as normal/abnormal . Adjusted WBC Count 63 See_Comment H [Automat ed message] (test code = 24807-1) The sy stem which generated this result transmit lavon reference range : <=5 /cu mm. The reference range was not used to interpret this result as normal/abnormal . Lining Cells (test code 0 See_Comment [Au tomated message] = 18157-0) The system [employer] generated this result transmit lavon reference range : <=1 /cu mm. The reference range was not used to interpret this result as normal/abnormal . % Segs (test code = 16 % 35907-3) % Lymphs (test code = 27 % 67675-1) % Monos (test code = 57 % 52058-9) % Eos (test code = 0 % 54651-4) % Baso (test code = 0 % 58495-1) Container Body Fluid EDTA Tube (test code = 2873) Lab Interpretation Abnormal (test code = 73122-2) [facility] with [id number] 17:11:59 Test Item Value Reference Range Interpretation Comments Appearance (test code = Clear Clear 9335-1) Color (test code = Yellow Colorless, Straw A 6824-7) RBCs (test code = 54 See_Comment H [Automate d message] 16415-3) The system [employer] generated this result transmit lavon reference range : <=1 /cu mm. The reference range was not used to interpret this result as normal/abnormal . Adjusted WBC Count 63 See_Comment H [Automat ed message] (test code = 54706-7) The sy stem which generated this result transmit lavon reference range : <=5 /cu mm. The reference range was not used to interpret this result as normal/abnormal . Lining Cells (test code 0 See_Comment [Au tomated message] = 22590-7) The system [employer] generated this result transmit lavon reference range : <=1 /cu mm. The reference range was not used to interpret this result as normal/abnormal . % Segs (test code = 16 % 88309-4) % Lymphs (test code = 27 % 27439-0) % Monos (test code = 57 % 06737-5) % Eos (test code = 0 % 58410-1) % Baso (test code = 0 % 84103-7) Container Body Fluid EDTA Tube (test code = 2873) Lab Interpretation Abnormal (test code = 92589-0) [facility] with [id number] 17:11:59 Test Item Value Reference Range Interpretation Comments Appearance (test code = Clear Clear 9335-1) Color (test code = Yellow Colorless, Straw A 6824-7) RBCs (test code = 54 See_Comment H [Automate d message] 62892-1) The system [employer] generated this result transmit lavon reference range : <=1 /cu mm. The reference range was not used to interpret this result as normal/abnormal . Adjusted WBC Count 63 See_Comment H [Automat ed message] (test code = 04479-9) The sy stem which generated this result transmit lavon reference range : <=5 /cu mm. The reference range was not used to interpret this result as normal/abnormal . Lining Cells (test code 0 See_Comment [Au tomated message] = 06790-0) The system [employer] generated this result transmit lavon reference range : <=1 /cu mm. The reference range was not used to interpret this result as normal/abnormal . % Segs (test code = 16 % 71251-2) % Lymphs (test code = 27 % 73998-1) % Monos (test code = 57 % 63243-5) % Eos (test code = 0 % 05902-7) % Baso (test code = 0 % 18542-0) Container Body Fluid EDTA Tube (test code = 2873) Lab Interpretation Abnormal (test code = 42041-5) [facility] with ffgvvtffrxzw2476-04-63 17:11:59 Test Item Value Reference Range Interpretation Comments Appearance (test code = Clear Clear 9335-1) Color (test code = Yellow Colorless, Straw A 6824-7) RBCs (test code = 54 See_Comment H [Automate d message] 82046-9) The system [employer] generated this result transmit lavon reference range : <=1 /cu mm. The reference range was not used to interpret this result as normal/abnormal . Adjusted WBC Count 63 See_Comment H [Automat ed message] (test code = 84478-8) The sy stem which generated this result transmit lavon reference range : <=5 /cu mm. The reference range was not used to interpret this result as normal/abnormal . Lining Cells (test code 0 See_Comment [Au tomated message] = 54157-4) The system [employer] generated this result transmit lavon reference range : <=1 /cu mm. The reference range was not used to interpret this result as normal/abnormal . % Segs (test code = 16 % 03177-4) % Lymphs (test code = 27 % 82341-2) % Monos (test code = 57 % 57497-7) % Eos (test code = 0 % 52708-6) % Baso (test code = 0 % 15253-1) Container Body Fluid EDTA Tube (test code = 2873) Lab Interpretation Abnormal (test code = 53958-9) [facility] with wablyleyuzqe7673-35-95 17:11:59 Test Item Value Reference Range Interpretation Comments Appearance (test code = Clear Clear 9335-1) Color (test code = Yellow Colorless, Straw A 6824-7) RBCs (test code = 54 See_Comment H [Automate d message] 38865-8) The system [employer] generated this result transmit lavon reference range : <=1 /cu mm. The reference range was not used to interpret this result as normal/abnormal . Adjusted WBC Count 63 See_Comment H [Automat ed message] (test code = 38059-5) The sy stem which generated this result transmit lavon reference range : <=5 /cu mm. The reference range was not used to interpret this result as normal/abnormal . Lining Cells (test code 0 See_Comment [Au tomated message] = 59749-4) The system [employer] generated this result transmit lavon reference range : <=1 /cu mm. The reference range was not used to interpret this result as normal/abnormal . % Segs (test code = 16 % 30184-0) % Lymphs (test code = 27 % 73758-8) % Monos (test code = 57 % 35284-9) % Eos (test code = 0 % 36184-9) % Baso (test code = 0 % 77427-7) Container Body Fluid EDTA Tube (test code = 2873) Lab Interpretation Abnormal (test code = 18128-7) [facility] with nuvhhgyqpqgm3700-92-75 17:11:59 Test Item Value Reference Range Interpretation Comments Appearance (test code = Clear Clear 9335-1) Color (test code = Yellow Colorless, Straw A 6824-7) RBCs (test code = 54 See_Comment H [Automate d message] 50669-2) The system [employer] generated this result transmit lavon reference range : <=1 /cu mm. The reference range was not used to interpret this result as normal/abnormal . Adjusted WBC Count 63 See_Comment H [Automat ed message] (test code = 52894-1) The sy stem which generated this result transmit lavon reference range : <=5 /cu mm. The reference range was not used to interpret this result as normal/abnormal . Lining Cells (test code 0 See_Comment [Au tomated message] = 38556-1) The system [employer] generated this result transmit lavon reference range : <=1 /cu mm. The reference range was not used to interpret this result as normal/abnormal . % Segs (test code = 16 % 17854-2) % Lymphs (test code = 27 % 22637-6) % Monos (test code = 57 % 36622-6) % Eos (test code = 0 % 06942-3) % Baso (test code = 0 % 40418-7) Container Body Fluid EDTA Tube (test code = 2873) Lab Interpretation Abnormal (test code = 50946-9) [facility] with xtuejvqpepjy4814-53-55 17:11:59 Test Item Value Reference Range Interpretation Comments Appearance (test code = Clear Clear 9335-1) Color (test code = Yellow Colorless, Straw A 6824-7) RBCs (test code = 54 See_Comment H [Automate d message] 76986-0) The system [employer] generated this result transmit lavon reference range : <=1 /cu mm. The reference range was not used to interpret this result as normal/abnormal . Adjusted WBC Count 63 See_Comment H [Automat ed message] (test code = 08876-3) The sy stem which generated this result transmit lavon reference range : <=5 /cu mm. The reference range was not used to interpret this result as normal/abnormal . Lining Cells (test code 0 See_Comment [Au tomated message] = 88533-3) The system [employer] generated this result transmit lavon reference range : <=1 /cu mm. The reference range was not used to interpret this result as normal/abnormal . % Segs (test code = 16 % 18344-8) % Lymphs (test code = 27 % 73718-8) % Monos (test code = 57 % 44208-4) % Eos (test code = 0 % 61202-6) % Baso (test code = 0 % 54014-3) Container Body Fluid EDTA Tube (test code = 2873) Lab Interpretation Abnormal (test code = 54816-3) [facility] WITH [id number] 17:11:59 Test Item Value Reference Range Interpretation Comments APPEARANCE FLUID Clear Clear (BEAKER) (test code = 510) COLOR FLUID (BEAKER) Yellow Colorless, Straw A (test code = 511) RBC FLUID (BEAKER) 54 /cu mm See_Comment H [Automat ed message] (test code = 513) The system which generated this result transmitted ref erence range: <=1. The reference range was not used to int erpret this result as normal/abnormal . ADJUSTED WBC FLUID 63 /cu mm See_Comment H [Automat ed message] (BEAKER) (test code = The sy stem which 1690) generated this result transmitted ref erence range: <=5. The reference range was not used to int erpret this result as normal/abnormal . LINING CELLS (BEAKER) 0 /cu mm See_Comment [Auto mated message] (test code = 1590) The syste m which generated this result transmitted ref erence range: <=1. The reference range was not used to int erpret this result as normal/abnormal . NEUTROPHILS FLUID 16 % (BEAKER) (test code = 1656) LYMPHS FLUID (BEAKER) 27 % (test code = 488) MONO/MACROPHAGE FLUID 57 % (BEAKER) (test code = 489) EOSINOPHILS FLUID 0 % (BEAKER) (test code = 491) BASO FLUID (BEAKER) 0 % (test code = 492) CONTAINER BODY FLUID EDTA Tube (BEAKER) (test code = 2873) U/S, [id number] 15:49:00Laterality?->LeftReason for exam:- >Large left pleural effusionShould this be performed at the bedside?- >NoLabs to be Ordered:->Body Fluid Culture (w/Gram Stain, C\\T\\S)Labs to be Ordered:->Cell CountLabs to be Ordered:->CytologyLabs to be Ordered:->Glucose+LDH+Protein [facility] : 1935 Sex: FFINAL REPORT Ultrasound guided left thoracentesis. Clinical History: Left pleural effusion. Modality: Ultrasound. Sedation: None. Mill Operator Head: Arin Landry PA-C Special Education Science Teacher: None. Estimated Blood Loss: 1cc Specimen: 850 cc of clear yellow fluid. Technique: Informed consent was obtained. The risks of pain, bleeding, infection, lung collapse/pneumothorax, injury to adjacent structures, and adverse medication reactions were discussed with the patient. The patient's left hemithorax was scanned from the back, with [...] of immediate complication. Post procedure chest x-ray is pending. Impression:Successful and uncomplicated ultrasound guided left thoracentesis. Signed: Cherie Nuno MDRvickyort Verified Date/Time: 10/08/2022 15:49:39 Reading Location: [address] Ultrasound Reading Room RAD, CHEST, 1 VIEW, NON [id number] 15:38:00Reason for exam:->s/p left thoraShould this be performed at the bedside?->YesIn US [facility] : 1935 Sex: FFINAL REPORT TECHNIQUE: Frontal view of the chest. INDICATION: s/p left thora. COMPARISON: 10/08/2022 at 7:14 AM. FINDINGS: LINES/TUBES: Left IJ port with catheter tip projected over the right atrium, as before. HEART AND MEDIASTINUM: Cardiomediastinal contour is stable. Dual-chamber pacer device with electrodes projected over the right atrium right ventricle, as before. Athe rosclerotic calcifications are present within the arch of the aorta. LUNGS: No consolidation or pulmonary edema. PLEURA: Small right pleural effusion, slightly increased. Near complete resolution of left pleural effusion. No pneumothorax. SOFT TISSUES AND BONES: Unremarkable. IMPRESSION:Near complete resolution of left pleural effusion status post thoracentesis. No pneumothorax. Right pleural effusion, slightly increased in prominence. Signed: Steven Porter MDReport Verified Date/Time: 10/08/2022 15:38:09 Urinalysis w/Microscopic + Reflex to [id number] 15:16:47 Test Item Value Reference Range Interpretation Comments Color, UA (test code Yellow = 5778-6) Clarity, UA (test Clear code = 5767-9) Specific [place], UA 1.012 1.001-1.035 (test code = 5811-5) pH, UA (test code = 6.0 5.0-8.0 5803-2) Protein, UA (test Negative Negative code = 18147-4) Glucose, UA (test Negative Negative code = 365) Ketones, UA (test Negative Negative code = 2514-8) Bilirubin, UA (test Negative Negative code = 43341-4) Blood, UA (test code Small Negative A = 54196-8) Nitrite, UA (test Negative Negative code = 5802-4) Leukocytes, UA (test Small Negative A code = 5799-2) Urobilinogen, UA 0.2 0.2-1.0 (test code = 55331-1) RBC, UA (test code = 7 See_Comment [Autom ated 11543-1) message] The system which generated this result transmit lavon reference range : /HPF. The reference range was not used to interpret this result as normal/abnormal . WBC, UA (test code = 5 See_Comment [Autom ated 5821-4) message] The system which generated this result transmit lavon reference range : /HPF. The reference range was not used to interpret this result as normal/abnormal . Mucus (test code = Rare 8247-9) Squam Epithel, UA 1 See_Comment [Automate d (test code = 40167-4) messag e] The system which generated this result transmit lavon reference range : /HPF. The reference range was not used to interpret this result as normal/abnormal . Specimen Source (test code = 2795) ANGE (test code = ANGE) Nuclear Powerplant Mechanic Helper ID - [auto]Nuclear Powerplant Mechanic Helper ID - tech Lab Interpretation Abnormal (test code = 29466-6) [facility] Culture 2022-10-08 15:16:47 Test Item Value Reference Range Interpretation Comments Color, UA (test code Yellow = 5778-6) Clarity, UA (test Clear code = 5767-9) Specific [place], UA 1.012 1.001-1.035 (test code = 5811-5) pH, UA (test code = 6.0 5.0-8.0 5803-2) Protein, UA (test Negative Negative code = 12790-2) Glucose, UA (test Negative Negative code = 365) Ketones, UA (test Negative Negative code = 2514-8) Bilirubin, UA (test Negative Negative code = 86722-2) Blood, UA (test code Small Negative A = 38565-8) Nitrite, UA (test Negative Negative code = 5802-4) Leukocytes, UA (test Small Negative A code = 5799-2) Urobilinogen, UA 0.2 0.2-1.0 (test code = 82699-2) RBC, UA (test code = 7 See_Comment [Autom ated 33139-6) message] The system which generated this result transmit lavon reference range : /HPF. The reference range was not used to interpret this result as normal/abnormal . WBC, UA (test code = 5 See_Comment [Autom ated 5821-4) message] The system which generated this result transmit lavon reference range : /HPF. The reference range was not used to interpret this result as normal/abnormal . Mucus (test code = Rare 8247-9) Squam Epithel, UA 1 See_Comment [Automate d (test code = 44113-7) messag e] The system which generated this result transmit lavon reference range : /HPF. The reference range was not used to interpret this result as normal/abnormal . Specimen Source (test code = 2795) ANGE (test code = AGNE) Nuclear Powerplant Mechanic Helper ID - [auto]Nuclear Powerplant Mechanic Helper ID - tech Lab Interpretation Abnormal (test code = 58906-7) [facility] Reflex to Culture 2022-10-08 15:16:47 Test Item Value Reference Range Interpretation Comments Color, UA (test code Yellow = 5778-6) Clarity, UA (test Clear code = 5767-9) Specific [place], UA 1.012 1.001-1.035 (test code = 5811-5) pH, UA (test code = 6.0 5.0-8.0 5803-2) Protein, UA (test Negative Negative code = 61405-8) Glucose, UA (test Negative Negative code = 365) Ketones, UA (test Negative Negative code = 2514-8) Bilirubin, UA (test Negative Negative code = 62038-6) Blood, UA (test code Small Negative A = 85083-0) Nitrite, UA (test Negative Negative code = 5802-4) Leukocytes, UA (test Small Negative A code = 5799-2) Urobilinogen, UA 0.2 0.2-1.0 (test code = 18463-9) RBC, UA (test code = 7 See_Comment [Autom ated 09679-5) message] The system which generated this result transmit lavon reference range : /HPF. The reference range was not used to interpret this result as normal/abnormal . WBC, UA (test code = 5 See_Comment [Autom ated 5821-4) message] The system which generated this result transmit lavon reference range : /HPF. The reference range was not used to interpret this result as normal/abnormal . Mucus (test code = Rare 8247-9) Squam Epithel, UA 1 See_Comment [Automate d (test code = 82505-8) messag e] The system which generated this result transmit lavon reference range : /HPF. The reference range was not used to interpret this result as normal/abnormal . Specimen Source (test code = 2795) ANGE (test code = ANGE) Nuclear Powerplant Mechanic Helper ID - [auto]Nuclear Powerplant Mechanic Helper ID - tech Lab Interpretation Abnormal (test code = 16179-2) [facility] Reflex to Culture 2022-10-08 15:16:47 Test Item Value Reference Range Interpretation Comments Color, UA (test code Yellow = 5778-6) Clarity, UA (test Clear code = 5767-9) Specific [place], UA 1.012 1.001-1.035 (test code = 5811-5) pH, UA (test code = 6.0 5.0-8.0 5803-2) Protein, UA (test Negative Negative code = 84162-1) Glucose, UA (test Negative Negative code = 365) Ketones, UA (test Negative Negative code = 2514-8) Bilirubin, UA (test Negative Negative code = 75049-4) Blood, UA (test code Small Negative A = 76740-6) Nitrite, UA (test Negative Negative code = 5802-4) Leukocytes, UA (test Small Negative A code = 5799-2) Urobilinogen, UA 0.2 0.2-1.0 (test code = 68315-6) RBC, UA (test code = 7 See_Comment [Autom ated 80413-2) message] The system which generated this result transmit lavon reference range : /HPF. The reference range was not used to interpret this result as normal/abnormal . WBC, UA (test code = 5 See_Comment [Autom ated 5821-4) message] The system which generated this result transmit lavon reference range : /HPF. The reference range was not used to interpret this result as normal/abnormal . Mucus (test code = Rare 8247-9) Squam Epithel, UA 1 See_Comment [Automate d (test code = 59403-0) messag e] The system which generated this result transmit lavon reference range : /HPF. The reference range was not used to interpret this result as normal/abnormal . Specimen Source (test code = 2795) ANGE (test code = ANGE) Nuclear Powerplant Mechanic Helper ID - [auto]Nuclear Powerplant Mechanic Helper ID - tech Lab Interpretation Abnormal (test code = 87012-8) [facility] Reflex to Culture 2022-10-08 15:16:47 Test Item Value Reference Range Interpretation Comments Color, UA (test code Yellow = 5778-6) Clarity, UA (test Clear code = 5767-9) Specific [place], UA 1.012 1.001-1.035 (test code = 5811-5) pH, UA (test code = 6.0 5.0-8.0 5803-2) Protein, UA (test Negative Negative code = 27676-3) Glucose, UA (test Negative Negative code = 365) Ketones, UA (test Negative Negative code = 2514-8) Bilirubin, UA (test Negative Negative code = 69126-9) Blood, UA (test code Small Negative A = 50076-6) Nitrite, UA (test Negative Negative code = 5802-4) Leukocytes, UA (test Small Negative A code = 5799-2) Urobilinogen, UA 0.2 0.2-1.0 (test code = 60249-8) RBC, UA (test code = 7 See_Comment [Autom ated 97340-4) message] The system which generated this result transmit lavon reference range : /HPF. The reference range was not used to interpret this result as normal/abnormal . WBC, UA (test code = 5 See_Comment [Autom ated 5821-4) message] The system which generated this result transmit lavon reference range : /HPF. The reference range was not used to interpret this result as normal/abnormal . Mucus (test code = Rare 8247-9) Squam Epithel, UA 1 See_Comment [Automate d (test code = 91758-1) messag e] The system which generated this result transmit lavon reference range : /HPF. The reference range was not used to interpret this result as normal/abnormal . Specimen Source (test code = 2795) ANGE (test code = ANGE) Nuclear Powerplant Mechanic Helper ID - [auto]Nuclear Powerplant Mechanic Helper ID - tech Lab Interpretation Abnormal (test code = 67923-5) [facility] Reflex to Culture 2022-10-08 15:16:47 Test Item Value Reference Range Interpretation Comments Color, UA (test code Yellow = 5778-6) Clarity, UA (test Clear code = 5767-9) Specific [place], UA 1.012 1.001-1.035 (test code = 5811-5) pH, UA (test code = 6.0 5.0-8.0 5803-2) Protein, UA (test Negative Negative code = 15914-2) Glucose, UA (test Negative Negative code = 365) Ketones, UA (test Negative Negative code = 2514-8) Bilirubin, UA (test Negative Negative code = 77664-6) Blood, UA (test code Small Negative A = 87320-4) Nitrite, UA (test Negative Negative code = 5802-4) Leukocytes, UA (test Small Negative A code = 5799-2) Urobilinogen, UA 0.2 0.2-1.0 (test code = 18286-7) RBC, UA (test code = 7 See_Comment [Autom ated 96624-0) message] The system which generated this result transmit lavon reference range : /HPF. The reference range was not used to interpret this result as normal/abnormal . WBC, UA (test code = 5 See_Comment [Autom ated 5821-4) message] The system which generated this result transmit lavon reference range : /HPF. The reference range was not used to interpret this result as normal/abnormal . Mucus (test code = Rare 8247-9) Squam Epithel, UA 1 See_Comment [Automate d (test code = 29316-1) messag e] The system which generated this result transmit lavon reference range : /HPF. The reference range was not used to interpret this result as normal/abnormal . Specimen Source (test code = 2795) ANGE (test code = ANGE) Nuclear Powerplant Mechanic Helper ID - [auto]Nuclear Powerplant Mechanic Helper ID - tech Lab Interpretation Abnormal (test code = 12653-9) [facility] Reflex to Culture 2022-10-08 15:16:47 Test Item Value Reference Range Interpretation Comments Color, UA (test code Yellow = 5778-6) Clarity, UA (test Clear code = 5767-9) Specific [place], UA 1.012 1.001-1.035 (test code = 5811-5) pH, UA (test code = 6.0 5.0-8.0 5803-2) Protein, UA (test Negative Negative code = 09139-5) Glucose, UA (test Negative Negative code = 365) Ketones, UA (test Negative Negative code = 2514-8) Bilirubin, UA (test Negative Negative code = 23062-9) Blood, UA (test code Small Negative A = 94686-6) Nitrite, UA (test Negative Negative code = 5802-4) Leukocytes, UA (test Small Negative A code = 5799-2) Urobilinogen, UA 0.2 0.2-1.0 (test code = 87856-2) RBC, UA (test code = 7 See_Comment [Autom ated 47360-4) message] The system which generated this result transmit lavon reference range : /HPF. The reference range was not used to interpret this result as normal/abnormal . WBC, UA (test code = 5 See_Comment [Autom ated 5821-4) message] The system which generated this result transmit lavon reference range : /HPF. The reference range was not used to interpret this result as normal/abnormal . Mucus (test code = Rare 8247-9) Squam Epithel, UA 1 See_Comment [Automate d (test code = 90369-9) messag e] The system which generated this result transmit lavon reference range : /HPF. The reference range was not used to interpret this result as normal/abnormal . Specimen Source (test code = 2795) ANGE (test code = ANGE) Nuclear Powerplant Mechanic Helper ID - [auto]Nuclear Powerplant Mechanic Helper ID - tech Lab Interpretation Abnormal (test code = 49449-5) [facility] Reflex to Culture 2022-10-08 15:16:47 Test Item Value Reference Range Interpretation Comments Color, UA (test code Yellow = 5778-6) Clarity, UA (test Clear code = 5767-9) Specific [place], UA 1.012 1.001-1.035 (test code = 5811-5) pH, UA (test code = 6.0 5.0-8.0 5803-2) Protein, UA (test Negative Negative code = 20056-7) Glucose, UA (test Negative Negative code = 365) Ketones, UA (test Negative Negative code = 2514-8) Bilirubin, UA (test Negative Negative code = 75947-3) Blood, UA (test code Small Negative A = 30247-4) Nitrite, UA (test Negative Negative code = 5802-4) Leukocytes, UA (test Small Negative A code = 5799-2) Urobilinogen, UA 0.2 0.2-1.0 (test code = 97249-7) RBC, UA (test code = 7 See_Comment [Autom ated 65215-7) message] The system which generated this result transmit lavon reference range : /HPF. The reference range was not used to interpret this result as normal/abnormal . WBC, UA (test code = 5 See_Comment [Autom ated 5821-4) message] The system which generated this result transmit lavon reference range : /HPF. The reference range was not used to interpret this result as normal/abnormal . Mucus (test code = Rare 8247-9) Squam Epithel, UA 1 See_Comment [Automate d (test code = 92619-3) messag e] The system which generated this result transmit lavon reference range : /HPF. The reference range was not used to interpret this result as normal/abnormal . Specimen Source (test code = 2795) ANGE (test code = ANGE) Nuclear Powerplant Mechanic Helper ID - [auto]Nuclear Powerplant Mechanic Helper ID - tech Lab Interpretation Abnormal (test code = 26101-4) [facility] [id number] 15:16:47 Test Item Value Reference Range Interpretation Comments COLOR (BEAKER) (test code = 470) Yellow CLARITY (BEAKER) (test code = 469) Clear SPECIFIC GRAVITY UA (BEAKER) (test 1.012 1.001-1.035 code = 468) PH UA (BEAKER) (test code = 467) 6.0 5.0-8.0 PROTEIN UA (BEAKER) (test code = Negative Negative 464) GLUCOSE UA (BEAKER) (test code = Negative Negative 365) KETONES UA (BEAKER) (test code = Negative Negative 371) BILIRUBIN UA (BEAKER) (test code = Negative Negative 462) BLOOD UA (BEAKER) (test code = 461) Small Negative A NITRITE UA (BEAKER) (test code = Negative Negative 465) LEUKOCYTE ESTERASE UA (BEAKER) (test Small Negative A code = 466) UROBILINOGEN UA (BEAKER) (test code 0.2 0.2-1.0 = 463) RBC UA (BEAKER) (test code = 519) 7 /HPF WBC UA (BEAKER) (test code = 520) 5 /HPF MUCUS (BEAKER) (test code = 1574) Rare SQUAMOUS EPITHELIAL (BEAKER) (test 1 /HPF code = 516) SOURCE(BEAKER) (test code = 2795) Nuclear Powerplant Mechanic Helper ID - [auto]Nuclear Powerplant Mechanic Helper ID - techRAD, CHEST, 1 VIEW, NON [id number] 10:20:00Reason for exam:->dyspneaShould this be performed at the bedside?->[facility] : 1935 Sex: FFINAL REPORT Chest, one view. HISTORY: dyspnea COMPARISON: Radiograph from09/27/2022 IMPRESSION: The support lines and devices are unchanged in position. Left pleural effusionhas increased in size but is still small. The right pleural effusion has decreased in size and is small. The pulmonary edema has decreased with residual interstitial pulmonary edema. The cardiac silhouette is unchanged in size. No acute bone abnormality. Signed: Cherie Nuno Verified Date/Time:10/08/2022 10:20:01 Reading Location: [facility] C013Y CT Body Reading Room Urinalysis with Microscopic If [id number] 10:02:41 Test Item Value Reference Range Interpretation Comments Color, UA (test code = Yellow 5778-6) Clarity, UA (test code = Hazy 5767-9) Specific [place], UA (test 1.015 1.001-1.035 code = 5811-5) pH, UA (test code = 5.0 5.0-8.0 5803-2) Protein, UA (test code = 30 mg/dL Negative A 17068-6) Glucose, UA (test code = Negative Negative 365) Ketones, UA (test code = Trace Negative A 2514-8) Bilirubin, UA (test code = Negative Negative 80879-5) Blood, UA (test code = Large Negative A 87336-8) Nitrite, UA (test code = Negative Negative 5802-4) Leukocytes, UA (test code Large Negative A = 5799-2) Urobilinogen, UA (test 0.2 0.2-1.0 code = 79366-9) Specimen Source (test code = 2795) ANGE (test code = ANGE) Nuclear Powerplant Mechanic Helper ID - [auto]Nuclear Powerplant Mechanic Helper ID - tech Lab Interpretation (test Abnormal code = 49717-2) [facility] If [id number] 10:02:41 Test Item Value Reference Range Interpretation Comments Color, UA (test code = Yellow 5778-6) Clarity, UA (test code = Hazy 5767-9) Specific [place], UA (test 1.015 1.001-1.035 code = 5811-5) pH, UA (test code = 5.0 5.0-8.0 5803-2) Protein, UA (test code = 30 mg/dL Negative A 11232-2) Glucose, UA (test code = Negative Negative 365) Ketones, UA (test code = Trace Negative A 2514-8) Bilirubin, UA (test code = Negative Negative 85587-8) Blood, UA (test code = Large Negative A 52160-1) Nitrite, UA (test code = Negative Negative 5802-4) Leukocytes, UA (test code Large Negative A = 5799-2) Urobilinogen, UA (test 0.2 0.2-1.0 code = 26421-9) Specimen Source (test code = 2795) ANGE (test code = ANGE) Nuclear Powerplant Mechanic Helper ID - [auto]Nuclear Powerplant Mechanic Helper ID - tech Lab Interpretation (test Abnormal code = 27744-9) [facility] If [id number] 10:02:41 Test Item Value Reference Range Interpretation Comments Color, UA (test code = Yellow 5778-6) Clarity, UA (test code = Hazy 5767-9) Specific [place], UA (test 1.015 1.001-1.035 code = 5811-5) pH, UA (test code = 5.0 5.0-8.0 5803-2) Protein, UA (test code = 30 mg/dL Negative A 74760-4) Glucose, UA (test code = Negative Negative 365) Ketones, UA (test code = Trace Negative A 2514-8) Bilirubin, UA (test code = Negative Negative 23002-1) Blood, UA (test code = Large Negative A 26807-1) Nitrite, UA (test code = Negative Negative 5802-4) Leukocytes, UA (test code Large Negative A = 5799-2) Urobilinogen, UA (test 0.2 0.2-1.0 code = 84744-5) Specimen Source (test code = 2795) ANGE (test code = ANGE) Nuclear Powerplant Mechanic Helper ID - [auto]Nuclear Powerplant Mechanic Helper ID - tech Lab Interpretation (test Abnormal code = 41111-1) [facility] If [id number] 10:02:41 Test Item Value Reference Range Interpretation Comments Color, UA (test code = Yellow 5778-6) Clarity, UA (test code = Hazy 5767-9) Specific [place], UA (test 1.015 1.001-1.035 code = 5811-5) pH, UA (test code = 5.0 5.0-8.0 5803-2) Protein, UA (test code = 30 mg/dL Negative A 88655-3) Glucose, UA (test code = Negative Negative 365) Ketones, UA (test code = Trace Negative A 2514-8) Bilirubin, UA (test code = Negative Negative 72259-9) Blood, UA (test code = Large Negative A 27130-4) Nitrite, UA (test code = Negative Negative 5802-4) Leukocytes, UA (test code Large Negative A = 5799-2) Urobilinogen, UA (test 0.2 0.2-1.0 code = 45908-9) Specimen Source (test code = 2795) ANGE (test code = ANGE) Nuclear Powerplant Mechanic Helper ID - [auto]Nuclear Powerplant Mechanic Helper ID - tech Lab Interpretation (test Abnormal code = 68247-4) [facility] If [id number] 10:02:41 Test Item Value Reference Range Interpretation Comments Color, UA (test code = Yellow 5778-6) Clarity, UA (test code = Hazy 5767-9) Specific [place], UA (test 1.015 1.001-1.035 code = 5811-5) pH, UA (test code = 5.0 5.0-8.0 5803-2) Protein, UA (test code = 30 mg/dL Negative A 91222-8) Glucose, UA (test code = Negative Negative 365) Ketones, UA (test code = Trace Negative A 2514-8) Bilirubin, UA (test code = Negative Negative 89738-2) Blood, UA (test code = Large Negative A 10088-0) Nitrite, UA (test code = Negative Negative 5802-4) Leukocytes, UA (test code Large Negative A = 5799-2) Urobilinogen, UA (test 0.2 0.2-1.0 code = 19972-6) Specimen Source (test code = 2795) ANGE (test code = ANGE) Nuclear Powerplant Mechanic Helper ID - [auto]Nuclear Powerplant Mechanic Helper ID - tech Lab Interpretation (test Abnormal code = 52941-9) [facility] If [id number] 10:02:41 Test Item Value Reference Range Interpretation Comments Color, UA (test code = Yellow 5778-6) Clarity, UA (test code = Hazy 5767-9) Specific [place], UA (test 1.015 1.001-1.035 code = 5811-5) pH, UA (test code = 5.0 5.0-8.0 5803-2) Protein, UA (test code = 30 mg/dL Negative A 59749-5) Glucose, UA (test code = Negative Negative 365) Ketones, UA (test code = Trace Negative A 2514-8) Bilirubin, UA (test code = Negative Negative 75404-9) Blood, UA (test code = Large Negative A 48835-3) Nitrite, UA (test code = Negative Negative 5802-4) Leukocytes, UA (test code Large Negative A = 5799-2) Urobilinogen, UA (test 0.2 0.2-1.0 code = 35282-4) Specimen Source (test code = 2795) ANGE (test code = ANGE) Nuclear Powerplant Mechanic Helper ID - [auto]Nuclear Powerplant Mechanic Helper ID - tech Lab Interpretation (test Abnormal code = 19995-2) [facility] If [id number] 10:02:41 Test Item Value Reference Range Interpretation Comments Color, UA (test code = Yellow 5778-6) Clarity, UA (test code = Hazy 5767-9) Specific [place], UA (test 1.015 1.001-1.035 code = 5811-5) pH, UA (test code = 5.0 5.0-8.0 5803-2) Protein, UA (test code = 30 mg/dL Negative A 63673-9) Glucose, UA (test code = Negative Negative 365) Ketones, UA (test code = Trace Negative A 2514-8) Bilirubin, UA (test code = Negative Negative 39456-7) Blood, UA (test code = Large Negative A 35289-3) Nitrite, UA (test code = Negative Negative 5802-4) Leukocytes, UA (test code Large Negative A = 5799-2) Urobilinogen, UA (test 0.2 0.2-1.0 code = 87740-6) Specimen Source (test code = 2795) ANGE (test code = ANGE) Nuclear Powerplant Mechanic Helper ID - [auto]Nuclear Powerplant Mechanic Helper ID - tech Lab Interpretation (test Abnormal code = 24709-8) [facility] If [id number] 10:02:41 Test Item Value Reference Range Interpretation Comments Color, UA (test code = Yellow 5778-6) Clarity, UA (test code = Hazy 5767-9) Specific [place], UA (test 1.015 1.001-1.035 code = 5811-5) pH, UA (test code = 5.0 5.0-8.0 5803-2) Protein, UA (test code = 30 mg/dL Negative A 16290-5) Glucose, UA (test code = Negative Negative 365) Ketones, UA (test code = Trace Negative A 2514-8) Bilirubin, UA (test code = Negative Negative 40144-3) Blood, UA (test code = Large Negative A 22012-6) Nitrite, UA (test code = Negative Negative 5802-4) Leukocytes, UA (test code Large Negative A = 5799-2) Urobilinogen, UA (test 0.2 0.2-1.0 code = 06607-6) Specimen Source (test code = 2795) ANGE (test code = ANGE) Nuclear Powerplant Mechanic Helper ID - [auto]Nuclear Powerplant Mechanic Helper ID - tech Lab Interpretation (test Abnormal code = 46512-0) [facility] [id number] 10:02:41 Test Item Value Reference Range Interpretation Comments COLOR (BEAKER) (test code = 470) Yellow CLARITY (BEAKER) (test code = 469) Hazy SPECIFIC GRAVITY UA (BEAKER) (test 1.015 1.001-1.035 code = 468) PH UA (BEAKER) (test code = 467) 5.0 5.0-8.0 PROTEIN UA (BEAKER) (test code = 30 mg/dL Negative A 464) GLUCOSE UA (BEAKER) (test code = Negative Negative 365) KETONES UA (BEAKER) (test code = Trace Negative A 371) BILIRUBIN UA (BEAKER) (test code = Negative Negative 462) BLOOD UA (BEAKER) (test code = 461) Large Negative A NITRITE UA (BEAKER) (test code = Negative Negative 465) LEUKOCYTE ESTERASE UA (BEAKER) (test Large Negative A code = 466) UROBILINOGEN UA (BEAKER) (test code 0.2 0.2-1.0 = 463) SOURCE(BEAKER) (test code = 2795) Nuclear Powerplant Mechanic Helper ID - [auto]Nuclear Powerplant Mechanic Helper ID - techUrinalysis Microscopic [id number] 10:02:35 Test Item Value Reference Range Interpretation Comments RBC, UA (test code 131 See_Comment [Automat ed = 55205-2) message] The sy stem which generated this result transmitted reference range : /HPF. The refer ence range was not u sed to interpret th is result as normal/abnormal . WBC, UA (test code 554 See_Comment [Automat ed = 5821-4) message] The sy stem which generated this result transmitted reference range : /HPF. The refer ence range was not u sed to interpret th is result as normal/abnormal . Mucus (test code = Rare 8247-9) Squam Epithel, UA 1 See_Comment [Automate d (test code = message] The sy stem 81255-1) which generated this result transmitted reference range : /HPF. The refer ence range was not u sed to interpret th is result as normal/abnormal . Amorphous Crystals Few (test code = 28358-5) ANGE (test code = Nuclear Powerplant Mechanic Helper ID - ANGE) [facility] [id number] 10:02:35 Test Item Value Reference Range Interpretation Comments RBC, UA (test code 131 See_Comment [Automat ed = 87028-0) message] The sy stem which generated this result transmitted reference range : /HPF. The refer ence range was not u sed to interpret th is result as normal/abnormal . WBC, UA (test code 554 See_Comment [Automat ed = 5821-4) message] The sy stem which generated this result transmitted reference range : /HPF. The refer ence range was not u sed to interpret th is result as normal/abnormal . Mucus (test code = Rare 8247-9) Squam Epithel, UA 1 See_Comment [Automate d (test code = message] The sy stem 24862-6) which generated this result transmitted reference range : /HPF. The refer ence range was not u sed to interpret th is result as normal/abnormal . Amorphous Crystals Few (test code = 86876-0) ANGE (test code = Nuclear Powerplant Mechanic Helper ID - ANGE) [facility] [id number] 10:02:35 Test Item Value Reference Range Interpretation Comments RBC, UA (test code 131 See_Comment [Automat ed = 94726-8) message] The sy stem which generated this result transmitted reference range : /HPF. The refer ence range was not u sed to interpret th is result as normal/abnormal . WBC, UA (test code 554 See_Comment [Automat ed = 5821-4) message] The sy stem which generated this result transmitted reference range : /HPF. The refer ence range was not u sed to interpret th is result as normal/abnormal . Mucus (test code = Rare 8247-9) Squam Epithel, UA 1 See_Comment [Automate d (test code = message] The sy stem 84174-8) which generated this result transmitted reference range : /HPF. The refer ence range was not u sed to interpret th is result as normal/abnormal . Amorphous Crystals Few (test code = 77832-8) ANGE (test code = Nuclear Powerplant Mechanic Helper ID - ANGE) [facility] [id number] 10:02:35 Test Item Value Reference Range Interpretation Comments RBC, UA (test code 131 See_Comment [Automat ed = 97964-0) message] The sy stem which generated this result transmitted reference range : /HPF. The refer ence range was not u sed to interpret th is result as normal/abnormal . WBC, UA (test code 554 See_Comment [Automat ed = 5821-4) message] The sy stem which generated this result transmitted reference range : /HPF. The refer ence range was not u sed to interpret th is result as normal/abnormal . Mucus (test code = Rare 8247-9) Squam Epithel, UA 1 See_Comment [Automate d (test code = message] The sy stem 10302-8) which generated this result transmitted reference range : /HPF. The refer ence range was not u sed to interpret th is result as normal/abnormal . Amorphous Crystals Few (test code = 80446-9) ANGE (test code = Nuclear Powerplant Mechanic Helper ID - ANGE) [facility] [id number] 10:02:35 Test Item Value Reference Range Interpretation Comments RBC, UA (test code 131 See_Comment [Automat ed = 82442-8) message] The sy stem which generated this result transmitted reference range : /HPF. The refer ence range was not u sed to interpret th is result as normal/abnormal . WBC, UA (test code 554 See_Comment [Automat ed = 5821-4) message] The sy stem which generated this result transmitted reference range : /HPF. The refer ence range was not u sed to interpret th is result as normal/abnormal . Mucus (test code = Rare 8247-9) Squam Epithel, UA 1 See_Comment [Automate d (test code = message] The sy stem 89628-8) which generated this result transmitted reference range : /HPF. The refer ence range was not u sed to interpret th is result as normal/abnormal . Amorphous Crystals Few (test code = 28750-2) ANGE (test code = Nuclear Powerplant Mechanic Helper ID - ANGE) [facility] [id number] 10:02:35 Test Item Value Reference Range Interpretation Comments RBC, UA (test code 131 See_Comment [Automat ed = 13352-8) message] The sy stem which generated this result transmitted reference range : /HPF. The refer ence range was not u sed to interpret th is result as normal/abnormal . WBC, UA (test code 554 See_Comment [Automat ed = 5821-4) message] The sy stem which generated this result transmitted reference range : /HPF. The refer ence range was not u sed to interpret th is result as normal/abnormal . Mucus (test code = Rare 8247-9) Squam Epithel, UA 1 See_Comment [Automate d (test code = message] The sy stem 76486-9) which generated this result transmitted reference range : /HPF. The refer ence range was not u sed to interpret th is result as normal/abnormal . Amorphous Crystals Few (test code = 88781-7) ANGE (test code = Nuclear Powerplant Mechanic Helper ID - ANGE) [facility] [id number] 10:02:35 Test Item Value Reference Range Interpretation Comments RBC, UA (test code 131 See_Comment [Automat ed = 16666-5) message] The sy stem which generated this result transmitted reference range : /HPF. The refer ence range was not u sed to interpret th is result as normal/abnormal . WBC, UA (test code 554 See_Comment [Automat ed = 5821-4) message] The sy stem which generated this result transmitted reference range : /HPF. The refer ence range was not u sed to interpret th is result as normal/abnormal . Mucus (test code = Rare 8247-9) Squam Epithel, UA 1 See_Comment [Automate d (test code = message] The sy stem 95166-9) which generated this result transmitted reference range : /HPF. The refer ence range was not u sed to interpret th is result as normal/abnormal . Amorphous Crystals Few (test code = 59719-6) ANGE (test code = Nuclear Powerplant Mechanic Helper ID - ANGE) [facility] [id number] 10:02:35 Test Item Value Reference Range Interpretation Comments RBC, UA (test code 131 See_Comment [Automat ed = 84432-3) message] The sy stem which generated this result transmitted reference range : /HPF. The refer ence range was not u sed to interpret th is result as normal/abnormal . WBC, UA (test code 554 See_Comment [Automat ed = 5821-4) message] The sy stem which generated this result transmitted reference range : /HPF. The refer ence range was not u sed to interpret th is result as normal/abnormal . Mucus (test code = Rare 8247-9) Squam Epithel, UA 1 See_Comment [Automate d (test code = message] The sy stem 96200-1) which generated this result transmitted reference range : /HPF. The refer ence range was not u sed to interpret th is result as normal/abnormal . Amorphous Crystals Few (test code = 38112-8) ANGE (test code = Nuclear Powerplant Mechanic Helper ID - ANGE) [facility]URINALYSIS [id number] 10:02:35 Test Item Value Reference Range Interpretation Comments RBC UA (BEAKER) (test code = 519) 131 /HPF WBC UA (BEAKER) (test code = 520) 554 /HPF MUCUS (BEAKER) (test code = 1574) Rare SQUAMOUS EPITHELIAL (BEAKER) (test 1 /HPF code = 516) AMORPHOUS CRYSTALS (BEAKER) (test Few code = 1584) Nuclear Powerplant Mechanic Helper ID - techPROTHROMBIN TIME/[id number] 09:44:16 Test Item Value Reference Range Interpretation Comments PROTIME (BEAKER) 14.6 seconds 11.9-14.2 H (test code = 759) INR (BEAKER) (test 1.17 See_Comment [Automat ed message] code = 370) The system [employer] h generated this result transmitted ref erence range: <=5.90. The reference range was not used to int erpret this result as normal/abnormal . RECOMMENDED COUMADIN/WARFARIN INR THERAPY RANGESSTANDARD DOSE: 2.0 - 3.0 Includes: PROPHYLAXIS for venous thrombosis, systemic embolization; TREATMENT for venous thrombosis and/or pulmonary embolus.HIGH RISK: Target INR is 2.5-3.5 for patients with mechanical heart valves.COMPREHENSIVE METABOLIC PANEL 2022-10-08 07:25:55 Test Item Value Reference Range Interpretation Comments TOTAL PROTEIN 5.6 gm/dL 6.0-8.3 L (BEAKER) (test code = 770) ALBUMIN (BEAKER) 3.0 g/dL 3.5-5.0 L (test code = 1145) ALKALINE 55 U/L 40-150 PHOSPHATASE (BEAKER) (test code = 346) BILIRUBIN TOTAL 1.0 mg/dL 0.2-1.2 (BEAKER) (test code = 377) SODIUM (BEAKER) 137 meq/L 136-145 (test code = 381) POTASSIUM (BEAKER) 3.9 meq/L 3.5-5.1 (test code = 379) CHLORIDE (BEAKER) 100 meq/L 98-107 (test code = 382) CO2 (BEAKER) (test 27 meq/L 22-29 code = 355) BLOOD UREA 25 mg/dL 7-21 H NITROGEN (BEAKER) (test code = 354) CREATININE 1.08 mg/dL 0.57-1.25 (BEAKER) (test code = 358) GLUCOSE RANDOM 123 mg/dL 70-105 H (BEAKER) (test code = 652) CALCIUM (BEAKER) 8.2 mg/dL 8.4-10.2 L (test code = 697) AST (SGOT) 19 U/L 5-34 (BEAKER) (test code = 353) ALT (SGPT) 10 U/L 6-55 (BEAKER) (test code = 347) EGFR (BEAKER) 50 Interpretatio n of eGFR (test code = [...] not appl icable for dialysis patien ts Nuclear Powerplant Mechanic Helper ID - [place] GCBC W/PLT COUNT & AUTO [id number] 05:33:27 Test Item Value Reference Range Interpretation Comments WHITE BLOOD CELL COUNT (BEAKER) 5.0 K/ L 3.5-10.5 (test code = 775) RED BLOOD CELL COUNT (BEAKER) 2.76 M/ L 3.93-5.22 L (test code = 761) HEMOGLOBIN (BEAKER) (test code = 7.2 GM/DL 11.2-15.7 L 410) HEMATOCRIT (BEAKER) (test code = 23.9 % 34.1-44.9 L 411) MEAN CORPUSCULAR VOLUME (BEAKER) 87 fL 79-95 (test code = 753) MEAN CORPUSCULAR HEMOGLOBIN 26.1 pg 25.6-32.2 (BEAKER) (test code = 751) MEAN CORPUSCULAR HEMOGLOBIN CONC 30.1 GM/DL 32.2-35.5 L (BEAKER) (test code = 752) RED CELL DISTRIBUTION WIDTH 19.7 % 11.7-14.4 H (BEAKER) (test code = 412) PLATELET COUNT (BEAKER) (test 251 K/CU MM 150-450 code = 756) MEAN PLATELET VOLUME (BEAKER) 9.5 fL 9.4-12.3 (test code = 754) NUCLEATED RED BLOOD CELLS 0 /100 WBC 0-0 (BEAKER) (test code = 413) NEUTROPHILS RELATIVE PERCENT 86 % (BEAKER) (test code = 429) LYMPHOCYTES RELATIVE PERCENT 10 % (BEAKER) (test code = 430) MONOCYTES RELATIVE PERCENT 3 % (BEAKER) (test code = 431) EOSINOPHILS RELATIVE PERCENT 0 % (BEAKER) (test code = 432) BASOPHILS RELATIVE PERCENT 0 % (BEAKER) (test code = 437) NEUTROPHILS ABSOLUTE COUNT 4.30 K/ L 1.56-6.13 (BEAKER) (test code = 670) LYMPHOCYTES ABSOLUTE COUNT 0.51 K/ L 1.18-3.74 L (BEAKER) (test code = 414) MONOCYTES ABSOLUTE COUNT (BEAKER) 0.15 K/ L 0.24-0.36 L (test code = 415) EOSINOPHILS ABSOLUTE COUNT 0.00 K/ L 0.04-0.36 L (BEAKER) (test code = 416) BASOPHILS ABSOLUTE COUNT (BEAKER) 0.01 K/ L 0.01-0.08 (test code = 417) IMMATURE GRANULOCYTES-RELATIVE 0.40 % 0.00-1.00 PERCENT (BEAKER) (test code = 2801) B-TYPE NATRIURETIC FACTOR (BNP)2022-10-07 23:04:39 Test Item Value Reference Range Interpretation Comments B-TYPE NATRIURETIC PEPTIDE 2813 pg/mL 0-100 H (BEAKER) (test code = 700) Nuclear Powerplant Mechanic Helper ID - BSHIGH SENSITIVITY TROPONIN [id number] 23:04:18 Test Item Value Reference Range Interpretation Comments HIGH SENSITIVITY 282 pg/ml See_Comment H [Automated message] TROPONIN I (test code The sy stem which = [id number]) generated this result transmitted ref erence range: <=17. Th e reference range was not used to int erpret this result as normal/abnormal . Nuclear Powerplant Mechanic Helper ID - BSThe SUPERVISOR REWORK STAT High Sensitivity Troponin-I results should be used in conjunctionwith other diagnostic information such as ECG, clinical observations and information, and patient symptoms to aid in the diagnosis of CT.COMPREHENSIVE METABOLIC [id number] 22:58:33 Test Item Value Reference Range Interpretation Comments TOTAL PROTEIN 6.2 gm/dL 6.0-8.3 Specimen sligh tly (BEAKER) (test hemolyzed code = 770) ALBUMIN (BEAKER) 3.3 g/dL 3.5-5.0 L Specimen sl ightly (test code = 1145) hemolyzed ALKALINE 66 U/L 40-150 PHOSPHATASE (BEAKER) (test code = 346) BILIRUBIN TOTAL 1.0 mg/dL 0.2-1.2 Specimen sli ghtly (BEAKER) (test hemolyzed code = 377) SODIUM (BEAKER) 135 meq/L 136-145 L (test code = 381) POTASSIUM (BEAKER) 3.9 meq/L 3.5-5.1 Specimen slightly (test code = 379) hemolyzed CHLORIDE (BEAKER) 98 meq/L 98-107 (test code = 382) CO2 (BEAKER) (test 28 meq/L 22-29 code = 355) BLOOD UREA 25 mg/dL 7-21 H NITROGEN (BEAKER) (test code = 354) CREATININE 1.13 mg/dL 0.57-1.25 Specimen slight ly (BEAKER) (test hemolyzed code = 358) GLUCOSE RANDOM 101 mg/dL 70-105 (BEAKER) (test code = 652) CALCIUM (BEAKER) 8.4 mg/dL 8.4-10.2 (test code = 697) AST (SGOT) 23 U/L 5-34 Specimen slight ly (BEAKER) (test hemolyzed code = 353) ALT (SGPT) 11 U/L 6-55 Specimen slight ly (BEAKER) (test hemolyzed code = 347) EGFR (BEAKER) 47 Interpretatio n of eGFR (test code = 1092) mL/min/1.[address] age Description sq m Result G1 Dionne l or high >=90 G2 Mildly decreased 60-89 G3a Mildl y to moderately 45-5 9 G3b Moderately to s everely 30-44 G4 Sever ly decreased 15-29 G5 Kidney failure <15Repo rted eGFR is based on the CKD-EPI 2020 equation t hat does not use a race coefficientEsti mated GFR is not as accur ate as Creatinine Kailyn lobo in predicting glom erular filtration rate . Estimated GFR is not appl icable for dialysis patien ts Nuclear Powerplant Mechanic Helper ID - [id number] 05:08:16 Test Item Value Reference Range Interpretation Comments MAGNESIUM (BEAKER) (test code = 1.7 mg/dL 1.6-2.6 627) Nuclear Powerplant Mechanic Helper ID - NINOSKA WBASIC METABOLIC [id number] 05:08:15 Test Item Value Reference Range Interpretation [...] eGF R is based on the CKD-EPI 2021 equation that d oes not use a race coefficientEsti mated GFR is not as accur ate as Creatinine Kailyn lobo in predicting glom erular filtration rate . Estimated GFR is not appl icable for dialysis patien ts Nuclear Powerplant Mechanic Helper ID - NINOSKA WCBC W/PLT COUNT & AUTO [id number] 04:42:42 Test Item Value Reference Range Interpretation [...] = 2801) RAD, CHEST, 1 VIEW, NON [id number] 20:44:00Reason for exam:- >pacemakerShould this be performed at the bedside?->Yes [facility] : 1935 Sex: FFINAL REPORT RAD, CHEST, [...] Tissues and Bones: Unchanged. Signed: Juan Miguel Thomas Verified Date/Time: 09/27/2022 20:44:10 BASIC METABOLIC [id number] 05:36:45 Test Item Value Reference Range Interpretation [...] not appl icable for dialysis patien ts Nuclear Powerplant Mechanic Helper ID - FELIPA [id number] 05:36:45 Test Item Value Reference Range Interpretation Comments MAGNESIUM (BEAKER) (test code = 1.4 mg/dL 1.6-2.6 L 627) Nuclear Powerplant Mechanic Helper ID - FELIPA LCBC W/PLT COUNT & AUTO [id number] 04:51:24 Test Item Value Reference Range Interpretation [...] (BEAKER) (test code = 2801) BASIC METABOLIC [id number] 09:39:28 Test Item Value Reference Range Interpretation [...] 8.4-10.2 (test code = 697) EGFR (BEAKER) 81 Interpretatio n of eGFR (test code [...] not appl icable for dialysis patien ts Nuclear Powerplant Mechanic Helper ID - MITCHSARS-CoV2/RT-PCR (Asymptomatic ONLY)2022-09-26 02:40:50 Test Item Value Reference Interpretation Comments Range SARS-COV2/RT-PCR Negative Negative The SARS-Co V-2 (test code = target nucleic 97385-6) acids are not detected in thi s [...] revoked sooner. Fact Sheet for Healthcare Providers: https://www.i-nexus/Documents/Xp ert%20Xpress%20SAR S%20CoV-2/Fact%20S heets/302-3802%20S ARS-COV-2%20HEALTH CARE%20PROVIDERS%2 0FACT%20SHEET.pdf Fact Sheet for Healthcare Patients: https://wwwALTILIA/Documents/Xp ert%20Xpress%20SAR S%20CoV-2/Fact%20S heets/302-3801%20S ARS-COV-2%20PATIEN T%20FACT%20SHEET.p df Lab Interpretation Normal (test code = 27676-1) [facility]26 02:40:50 Test Item Value Reference Interpretation Comments Range SARS-COV2/RT-PCR Negative Negative The SARS-Co V-2 (test code = target nucleic 13203-1) acids are not detected in thi s [...] rapid, real-lexus e RT-PCR test intended for e qualitative detection of nucleic acid fr [...] revoked sooner. Fact Sheet for Healthcare Providers: https://www.i-nexus/Documents/Xp ert%20Xpress%20SAR S%20CoV-2/Fact%20S heets/302-3802%20S ARS-COV-2%20HEALTH CARE%20PROVIDERS%2 0FACT%20SHEET.pdf Fact Sheet for Healthcare Patients: https://wwwALTILIA/Documents/Xp ert%20Xpress%20SAR S%20CoV-2/Fact%20S heets/302-3801%20S ARS-COV-2%20PATIEN T%20FACT%20SHEET.p df Lab Interpretation Normal (test code = 62134-0) [facility]2022-09-26 02:40:50 Test Item Value Reference Interpretation Comments Range SARS-COV2/RT-PCR Negative Negative The SARS-Co V-2 (test code = target nucleic 39960-5) acids are not detected in thi s [...] revoked sooner. Fact Sheet for Healthcare Providers: https://www.i-nexus/Documents/Xp ert%20Xpress%20SAR S%20CoV-2/Fact%20S heets/302-3802%20S ARS-COV-2%20HEALTH CARE%20PROVIDERS%2 0FACT%20SHEET.pdf Fact Sheet for Healthcare Patients: https://wwwALTILIA/Documents/Xp ert%20Xpress%20SAR S%20CoV-2/Fact%20S heets/302-3801%20S ARS-COV-2%20PATIEN T%20FACT%20SHEET.p df Lab Interpretation Normal (test code = 06864-0) [facility]2022-09-26 02:40:50 Test Item Value Reference Interpretation Comments Range SARS-COV2/RT-PCR Negative Negative The SARS-Co V-2 (test code = target nucleic 03556-2) acids are not detected in thi s [...] revoked sooner. Fact Sheet for Healthcare Providers: https://www.i-nexus/Documents/Xp ert%20Xpress%20SAR S%20CoV-2/Fact%20S heets/302-3802%20S ARS-COV-2%20HEALTH CARE%20PROVIDERS%2 0FACT%20SHEET.pdf Fact Sheet for Healthcare Patients: https://www.i-nexus/Documents/Xp ert%20Xpress%20SAR S%20CoV-2/Fact%20S heets/302-3801%20S ARS-COV-2%20PATIEN T%20FACT%20SHEET.p df Lab Interpretation Normal (test code = 95486-1) [facility]2022-09-26 02:40:50 Test Item Value Reference Interpretation Comments Range SARS-COV2/RT-PCR Negative Negative The SARS-Co V-2 (test code = target nucleic 70837-3) acids are not detected in thi s [...] revoked sooner. Fact Sheet for Healthcare Providers: https://www.i-nexus/Documents/Xp ert%20Xpress%20SAR S%20CoV-2/Fact%20S heets/302-3802%20S ARS-COV-2%20HEALTH CARE%20PROVIDERS%2 0FACT%20SHEET.pdf Fact Sheet for Healthcare Patients: https://www.i-nexus/Documents/Xp ert%20Xpress%20SAR S%20CoV-2/Fact%20S heets/302-3801%20S ARS-COV-2%20PATIEN T%20FACT%20SHEET.p df Lab Interpretation Normal (test code = 05628-7) [facility]2022-09-26 02:40:50 Test Item Value Reference Interpretation Comments Range SARS-COV2/RT-PCR Negative Negative The SARS-Co V-2 (test code = target nucleic 73959-9) acids are not detected in thi s [...] revoked sooner. Fact Sheet for Healthcare Providers: https://www.i-nexus/Documents/Xp ert%20Xpress%20SAR S%20CoV-2/Fact%20S heets/302-3802%20S ARS-COV-2%20HEALTH CARE%20PROVIDERS%2 0FACT%20SHEET.pdf Fact Sheet for Healthcare Patients: https://www.i-nexus/Documents/Xp ert%20Xpress%20SAR S%20CoV-2/Fact%20S heets/302-3801%20S ARS-COV-2%20PATIEN T%20FACT%20SHEET.p df Lab Interpretation Normal (test code = 18158-4) [facility]2022-09-26 02:40:50 Test Item Value Reference Interpretation Comments Range SARS-COV2/RT-PCR Negative Negative The SARS-Co V-2 (test code = target nucleic 23923-0) acids are not detected in thi s [...] om SARS-CoV-2 in a nasopharyngeal swab specimen collemclaren caro region from individual s suspected of COVID-19 by [...] revoked sooner. Fact Sheet for Healthcare Providers: https://www.i-nexus/Documents/Xp ert%20Xpress%20SAR S%20CoV-2/Fact%20S heets/302-3802%20S ARS-COV-2%20HEALTH CARE%20PROVIDERS%2 0FACT%20SHEET.pdf Fact Sheet for Healthcare Patients: https://www.i-nexus/Documents/Xp ert%20Xpress%20SAR S%20CoV-2/Fact%20S heets/302-3801%20S ARS-COV-2%20PATIEN T%20FACT%20SHEET.p df Lab Interpretation Normal (test code = 22649-5) [facility]2022-09-26 02:40:50 Test Item Value Reference Interpretation Comments Range SARS-COV2/RT-PCR Negative Negative The SARS-Co V-2 (test code = target nucleic 77433-1) acids are not detected in thi s [...] revoked sooner. Fact Sheet for Healthcare Providers: https://www.i-nexus/Documents/Xp ert%20Xpress%20SAR S%20CoV-2/Fact%20S heets/302-3802%20S ARS-COV-2%20HEALTH CARE%20PROVIDERS%2 0FACT%20SHEET.pdf Fact Sheet for Healthcare Patients: https://www.i-nexus/Documents/Xp ert%20Xpress%20SAR S%20CoV-2/Fact%20S heets/302-3801%20S ARS-COV-2%20PATIEN T%20FACT%20SHEET.p df Lab Interpretation Normal (test code = 44747-4) [facility]2022-09-26 02:40:50 Test Item Value Reference Interpretation Comments Range SARS-COV2/RT-PCR Negative Negative The SARS-Co V-2 (test code = target nucleic 34051-3) acids are not detected in thi s [...] revoked sooner. Fact Sheet for Healthcare Providers: https://www.i-nexus/Documents/Xp ert%20Xpress%20SAR S%20CoV-2/Fact%20S heets/302-3802%20S ARS-COV-2%20HEALTH CARE%20PROVIDERS%2 0FACT%20SHEET.pdf Fact Sheet for Healthcare Patients: https://www.i-nexus/Documents/Xp ert%20Xpress%20SAR S%20CoV-2/Fact%20S heets/302-3801%20S ARS-COV-2%20PATIEN T%20FACT%20SHEET.p df Lab Interpretation Normal (test code = 34090-4) [facility] [place] [facility])2022-09-26 02:40:50 Test Item Value Reference Range Interpretation Comments SARS-COV2/RT-PCR Negative Negative The SARS-Co V-2 target (test code = nucleic acids a re not 1450647) detected in thi s specimen. Negative result [...] revoked sooner. Fact Sheet for Healthcare Providers: https://www.[employer] m/Documents/Xpert%20Xpress%20SARS%20CoV-2/Fact%20Sheets/3023802%85KTQI-THV-3%20 HEALTHCARE%20PROVIDERS%20FACT%20SHEET.pdf Fact Sheet for Healthcare Patients: https://www.modulR/Documents/Xpert%20Xp ress%20SARS%20CoV-2/Fact%20Sheets/302-3801%34EPQN-NME-6%20PATIENT%20FACT%20SHEET .pdfBLOOD [id number] 01:00:25 Test Item Value Reference Range Interpretation Comments CULTURE (BEAKER) (test No growth in 5 days code = 1095) The specimen volume collected for this blood culture was below the optimum (10 mL per bottle or 20 mL total). Use of lower volumes may adversely affect recovery and/or detection times of some organisms.BLOOD [id number] 01:00:25 Test Item Value Reference Range Interpretation [...] not appl icable for dialysis patien ts Nuclear Powerplant Mechanic Helper ID - ADMINSpecimen slightly ictericBody fluid culture + gram stain 2022-09-24 11:38:05 Test Item Value Reference Range Interpretation Comments Result (test code = 6463-4) [facility] [id number] 11:38:05 Test Item Value Reference Range Interpretation Comments CULTURE (BEAKER) (test code = 1095) No growth [id number] 17:07:59 Test Item Value Reference Range Interpretation Comments Case Report (test code Medical Cytology = 104) Report Case: [id number] Authorizing Provider: Javon Mcdowell Collected: 09/21/2022 01:31 PM Ordering Location: [address] Received: 09/21/2022 03:30 PM Service Pathologist: Jimena Anton MD Specimen: Pleural Cavity L DIAGNOSIS (test code = m8emaPNlGMTer4biIMYlkQ 3220) FuZzEwMzNcZnRuYmpcdWMx IHtccnRmMVxlcGljOTYwMl yqzcLiBHJswLMyP6Hueknu YIlkXR7tUD2zmJdzvUPbmS UcQDFwRsXrp7bbv771jVRk h3shJFOGmwhedOg1aKvjW9 0yh0C7KfgiR09qiUQtWBG1 FMRwGQIeqFWeJBDgLFQ9UM MuzNQyL5wjMCJsVA1mvaym KCnbUNjpMGLdgYE5BVUizI HdS7MoLVHjXQndESDbrru5 NhPtHs3bzKNkvKcwTYcgNM JkXHBsYWluXGZzMjAgTEVG VCBQTEVVUkFMIEZMVUlEIC wASUJJO0JZIeBaVU0OWQMT FZmnKyiMW7aiOdEpaCEuFV UwNL2pVsUUQTLSBLgSLlIR QVRFRCBBVFlQSUNBTCBNVU wQPV1UU1rCTDKFLAUFUAvZ IFBSRVNFTlQgKFNFRSBDT0 4ZOK8IWRtgDOG6k3hapWCm XHNzdGUxODAwMFxhbnNpXG OhEifazsvlJLGvTUA2loHq OBYqBGydLMQyYYibYp3vpR GpeNqyEyXzRVOkz8qawkGF abtofWt4k5kpOEZfPmA9rI UaOYfyG3vgbvHjaYBrFQVt HGb3wC34UZKppQ0mtZOwZP wzreCoDbE1JJkiXBWcRcT5 KAVdyCKmXWFfA8vpYNUwER xzEDTvEEajhFVdUHG6xXvi c3C9xTAloKRlbXrbRyPaAy PcJmUCy0KuWLu8dNasP2Av ZVWcJaL5iSXkBZIpBAycNJ LvDFIsjwP9oH70LVtixxE4 pMZhj3Bkf62at344oO1jtO WfHYT2BFSpCDDntMZnIDJs OGA5MWZgdQXfU0paQOVqKU 9tdiffJXnxYUvtSIYpxGI3 HMZflFWiB4YiAEYaMGkhQR Drude9VeKvXg1oqZSddMmi BYbde0uyo2ehyOMlNhn2DF BhObLxCxnwTMscg7Fwh5qq LZUdub9yLSM8pEMacXwse9 P0iXZmCZUvjIAlHMYsTI5k iWYbXDBvnW3syakrRTCsVa JmikjtOKKgqQksqdPhSm5d bMrfUPN5XMymS8tjwK5fMc S0JAlvM8vikV4dCGv0EUkb SETweHK0icG8VNOonDNoE6 DgxX1aRPBgPI1yvpb0a1gl LEB8KEfyRJVcVhX8yzT3AF MlqKNrOGZfqCstFGaso514 LVG7ZoEfXTSgt6NqT9MldF ecC12azWmuH71hPQKekJfz kO0oqSayoI1lXbDsDuTlXU yzjSkkKJ9oUVIuG8stiZXh YBYsZUGbD2cfYiAkvM9glZ dtIAflznKuEADgLjj8CUEq eKPgSRNzDxr2IULnIIReP6 3tjlgyDHG7xR7jb7tov2To CPffWMO0KEDpq14pZEsmfw I1XRtkYk25CMfgTPZ6ZSsa cGFyfX0= COMMENT (test code = s6ilzRArKPNiuWZ3OvHnPD 8687) Uog6axn4MkcSTkhOFiZLfi kOZpxhFtnr58xJD6yU71LW 0jQAZsTmO1DRNcifJ0Tnx1 DWVaFPVwtDIqR211n2dbu1 dhnvXwoKI4rGhfKUNbfble MbP3CGmpHYLqtjtkTUa1EE mmQLSfvAT5MDPjhDVpU7Jl COMpNQ9eaxs7ONK3XXfzEK MiLlI2VLLkfTTiVYMtsWtp NDnem853TXS1KpHpHUFbor RirFfwpZ1rBiHkTOPZzEQd i1AeO8seUZ8jsVWggXgtz1 SzeTg3gWKpLYCyHPUmNUAl goQzMWWpST6oG11iNFOsZE MgyF1xZQ6ze170hTXxxPFb BCLrxZkoFOGzsEk8UFCdc1 b9fSKrA5I9SRRfwpKeER2v BINtl21pSETqMGSdUQunLG EgcmFyZSBhdHlwaWNhbCBj HLxiULkbvSsnVMUiHW5smy I2mYCoXAUvCM5uZVZdXY8z BL58kOShxRvwAT00U8lmbD 5aXREbrn2= CPT Code(s) (test code i0ysfCZuGDAcsUX9BwKtDH = 3355) Ixp4yfh4FaiYOjhFOiAKqc wHQdghCxsv05nNR6kU73OT 0fRWHjSpX7GIAklnJ2Uml9 XNGhFBDlhZHrK998k1qej8 hpuaFrkJM7nVlwPMZpkpmh RkM1MGuuRMSflofqLBj3EA pvUPGrwIV6KZTapUKuI4Dv NWUvKT6zhwc6AFH9SIzqIR FyVmE5AISpyEEuRAAwpLfu UFmme751XTP0AwAfKQNqfg LivUezqG5gWhSpMVU5OTAi OCwgODgzMDVccGFyfQ== CLINICAL DATA (test c8oucTWsELZvjVS5QmUqKD code = 3355) Vrc2mxd3YgcTQgnPEeTXxh vTHlwfSznu22aTD1tC96LX 5fDFImHjJ9RZZupeV7Oga6 ZXNdQOHrcOKiI306l5jxs7 dnipVdvHZ1ZYArMQFrI3Md ZS9cCMCgfUHhL72rrXNjAP N0BZIrKYJdqOFdVONwIIM2 QETcwYYlG1rdXVPsGW1gjr kcIOcfJLaxTXUgyIQ8XXUq qTLgH5CcVYGgWSpjXSPeku k7CrZpDs7kyDZerQljBVea YXJkXHBsYWluXGZzMjBcY2 RqVZS0MEqnSFhPPQ33ITZc AB3rX2GyZ5JnCBlwrHbnbU VyaXRvbmVhbCBhbmQgbHVu ToIoIBHbd5Boj8XxCMZVmW PdHAwaXtoerpczqKL5nJ9h LlxwYXJ9 SPECIMEN SOURCE (test z4pcpTCvKZHieYF7JnSgJS code = 3377) Rwr0wui1AnsXWfnLNfIEfw oXWxulBiml84rCX4cY54BS 6wHWExBgC0ETSgkrP8Yqk8 VDOjXEVyhADsV033s4pzv4 rynwJxqVO2bDclPKBohslh JjA1HNfiOMAomtguWEe1SY trIUBekPC8BRPgeIBtA4Ts DGBdBY6ttcr8XMP8HVrgRD KpClN9XRQmpPYmSSVyfYzg KOxks080RWE1DsNpAMFddc LlhKgcyV1yPoTjPCGOBBOG IFBMRVVSQUwgRkxVSURccG FyfQ== GROSS DESCRIPTION (test n2tnyNGxXMOphDW6EqPlEV code = 8293532524) Awg8uyf6TnlNSacGKpNJwy vMKujuOxvd19fLG0kP20OZ 4pQNEpDnB5FVGvoqK4Lkq3 QAJeITDziNUcT566i2dyc0 nxzuLtpTA5rZsdKYFaefpy GdP5FShcPODbjvatTEl5PG qsUPOybYP4EUSeyUOqI1Ue UPUhJL3pdwh1UYP6EOscIS TpAeW9OERzdOPjANFqmOct OOlvr192IKD0IwSxXSXbet C5ZRvuOGAnL3MoZ5ZxXQjw SYQ1RMKxTFDvKKXjULAqQA LcXVgrzbT7z0uyEMKvhEHh KTS9HMyzgLPmTXXlDXAnUF wpDqRWPvBcQpT5TZKtJVMh HdE3HYp8HEACKfXsUhFuVk Q9PRZ0NwvoYDj3QUq2JNxN ErV5NmJ8HIw7JWThIZMkUS YtNLs9XSEgMGfyyMOzCQRh DVYzLBcnFLilS55kvNuawY 6iYgVyLUJVDzTGqUX2rlGl CBDqkgk7vPFNQsfrYYLePv GlMJQUPQUfdVXtYYZ3QF4o IGFtYmVyIGZsdWlkOyBwcm BtFZZfQFS2AUO2cT3anLej cqVjnbJbP7DvpQRkdP1ksi xHWffaYMD9jPMxD4JadQHw zA2kzkE3SFWaEyf5CKDvyM 9zSo3zcBUayV9yZMYaOKX6 VSXax08tWVFyPn1oQJTnk5 uayDpmh2LgpFMzGU68DCYx wUIyDRZ5ZY3fuPyxUCT1 MICROSCOPIC DESCRIPTION j0zfoQIcOLWkrUK9YfNfPX (test code = 3371) Kqj1jrg4HbqCGwwWBsZEeb cHCubzFgoe48iQB0gP13EU 1sVUQtDxN6CNBuwrQ1Jyi2 GKVvUTZdbWBuZ443w5wmc1 zqzyJxlNW7xFrhVEXttqof RdQ4HFouKRQumrvpZVz1JT efBKMkaRD3IAEepZIyY5Zn ULPiVR2wyxk2YUJ1TCphIJ XvRvX6NHPrhDFmACRjySry FKpth924ODP8ZfCfMBRuvr BgpTrzsL1hIkXwGPVMBEPd x0YhDAUbXHdkPIP4 STATEMENT OF ADEQUACY Satisfactory (test code = 2757) Gross assessment was [facility] performed at ([facility], = 2777) Department of Pathology, [address] [place] [address], Technical component was [facility] performed at ([facility], = 2778) Department of Pathology, [address] [place] [address], Professional component [facility] was performed at ([facility], code = 2779) Department of Pathology, [address] [place] [address], [facility] 17:07:59Medical Cytology Report Case: [id number] Authorizing Provider: Javon Mcdowell Collected: 09/21/2022 01:31PM Ordering Location: [address] Received: 09/21/2022 03:30 PM Service Pathologist: Jimena Anton MD Specimen: Pleural Cavity L LEFT PLEURAL FLUID (CYTOSPINS AND CELL BLOCK): - RARE DEGENERATED ATYPICAL MULTINUCLEATED CELL PRESENT (SEE COMMENT) Signing Pathologist Direct Phone Line: [phone] signed by Jimena Anton MD on 09/23/2022 at 5:07 PMThe specimen is hypocellular and has rare benign appearing mesothelial cells admixed with acute inflammation. There is a rare atypical cell with degenerative changes and multiple nuclei. 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 Pleural Cavity L.Received 8 ml tirso fluid; prepared 4 cytospins and cell block(A2) - the cell block was fixed in formalin at 15:43 on 09/21/2022erformed. [facility], Department of Pathology, [address] [place] [address], [facility], [facility] of [facility]ology, [address] [place] [address], [facility], Department of Pathology, [address] [place] [address], LWOLG METABOLIC [id number] 08:30:44 Test Item Value Reference Range Interpretation [...] not appl icable for dialysis patien ts Nuclear Powerplant Mechanic Helper ID - NINOSKA DTHNCAEXSK6172-19-07 08:30:44 Test Item Value Reference Range Interpretation Comments MAGNESIUM (BEAKER) (test code = 1.8 mg/dL 1.6-2.6 627) Nuclear Powerplant Mechanic Helper ID - NINOSKA WCBC W/PLT COUNT & AUTO [id number] 07:47:47 Test Item Value Reference Range Interpretation [...] code = 2801) LACTATE DEHYDROGENASE (LDH), BODY [id number] 09:31:07 Test Item Value Reference Range Interpretation Comments LACTATE DEHYDROGENASE FLUID (BEAKER) 67 U/L (test code = 634) Absence of reference range indicates that normals have not been defined.Assay performance has not been validated for this type of specimen.Nuclear Powerplant Mechanic Helper ID - [id number] dehydrogenase (LDH), body [id number] 09:30:45 Test Item Value Reference Range Interpretation Comments LDH, Fluid (test 63 U/L code = 04196-3) ANGE (test code = Absence of reference ANGE) range indicates that normals have not been defined.Assay performance has not been validated for this type of specimen. Nuclear Powerplant Mechanic Helper ID - [id number] [facility] HospitalLACTATE DEHYDROGENASE (LDH), BODY [id number] 09:30:45 Test Item Value Reference Range Interpretation Comments LACTATE DEHYDROGENASE FLUID (BEAKER) 63 U/L (test code = 634) Absence of reference range indicates that normals have not been defined.Assay performance has not been validated for this type of specimen.Nuclear Powerplant Mechanic Helper ID - [id number], body [id number] 09:28:09 Test Item Value Reference Range Interpretation Comments Protein, Fluid (test 1.0 g/dL code = 2881-1) ANGE (test code = Absence of reference ANGE) range indicates that normals have not been defined.Assay performance has not been validated for this type of specimen. Nuclear Powerplant Mechanic Helper ID - [id number] [facility] HospitalPR[facility], BODY [id number] 09:28:09 Test Item Value Reference Range Interpretation Comments PROTEIN FLUID (BEAKER) (test code = 1.0 g/dL 579) Absence of reference range indicates that normals have not been defined.Assay performance has not been validated for this type of specimen.Nuclear Powerplant Mechanic Helper ID - [id number], BODY [id number] 09:28:02 Test Item Value Reference Range Interpretation Comments PROTEIN FLUID (BEAKER) (test code = 1.0 g/dL 579) Absence of reference range indicates that normals have not been defined.Assay performance has not been validated for this type of specimen.Nuclear Powerplant Mechanic Helper ID - [id number] METABOLIC [id number] 06:23:48 Test Item Value Reference Range Interpretation [...] not appl icable for dialysis patien ts Nuclear Powerplant Mechanic Helper ID - JEANETH [id number] 06:11:11 Test Item Value Reference Range Interpretation Comments MAGNESIUM (BEAKER) (test code = 1.7 mg/dL 1.6-2.6 627) Nuclear Powerplant Mechanic Helper ID - JEANETH MCBC W/PLT COUNT & AUTO [id number] 05:58:24 Test Item Value Reference Range Interpretation [...] PERCENT (BEAKER) (test code = 2801) Prepare [id number] 23:54:00 Test Item Value Reference Range Interpretation Comments CROSSMATCH (test code = 2264) COMPATIBLE Unit ABO (test code = A Pos 0273106) UNIT NUMBER (test code = [id number] 934-0) Status (test code = 1236077) [facility] Product (test code RED BLOOD CELLS = 2263) PRODUCT CODE (test code = F1256P52 933-2) [facility] HospitalBODY FLUID CELL COUNT WITH [id number] 16:16:34 Test Item Value Reference Range Interpretation [...] = 2873) Body fluid cell count with uqigbgmygsow7058-98-20 16:13:08 Test Item Value Reference Range Interpretation Comments Appearance (test code Hazy Clear A = 9335-1) Color (test code = [place] Colorless, Straw A 6824-7) RBCs (test code = 39882 See_Comment H [Automate d 13402-2) message] The system which generated this result transmit lavon reference range : <=1 /cu mm. The reference range was not used to interpret this result as normal/abnormal . Adjusted WBC Count 121 See_Comment H [Automat ed (test code = 90075-3) messag e] The system which generated this result transmit lavon reference range : <=5 /cu mm. The reference range was not used to interpret this result as normal/abnormal . Lining Cells (test 0 See_Comment [Automat ed code = 13000-4) message] The system which generated this result transmit lavon reference range : <=1 /cu mm. The reference range was not used to interpret this result as normal/abnormal . % Segs (test code = 17 % 16472-4) % Lymphs (test code = 68 % 93376-9) % Monos (test code = 15 % 10711-0) % Eos (test code = 0 % 83339-7) % Baso (test code = 0 % 11758-5) Container Body Fluid Sterile Vial (test code = 2873) Lab Interpretation Abnormal (test code = 03531-5) [facility] CE[facility] COUNT WITH [id number] 16:13:08 Test Item Value Reference Range Interpretation Comments APPEARANCE FLUID Hazy Clear A (BEAKER) (test code = 510) COLOR FLUID (BEAKER) [place] Colorless, Straw A (test code = 511) RBC FLUID (BEAKER) 83124 /cu mm See_Comment H [Automat ed message] [...] Vial (BEAKER) (test code = 2873) PROTEIN, [id number] 14:19:38 Test Item Value Reference Range Interpretation Comments TOTAL PROTEIN (BEAKER) (test code = 6.2 gm/dL 6.0-8.3 770) Nuclear Powerplant Mechanic Helper ID - MITCHLACTATE DEHYDROGENASE (LDH)2022-09-21 14:19:38 Test Item Value Reference Range Interpretation Comments LACTATE DEHYDROGENASE (BEAKER) (test 460 U/L 125-220 H code = 635) Nuclear Powerplant Mechanic Helper ID - MITCHRAD, CHEST, 1 VIEW, NON [id number] 13:35:00Reason for exam:->SobShould this be performed at the bedside?->Yes [facility] 1935 Sex: FFINAL [...] combination pneumonia, atelectasis, or pleural effusion. Signed: Horcae Richards Verified Date/Time: 09/21/2022 13:35:47 Reading Location: [address] Reading Room HIGH SENSITIVITY TROPONIN [id number] 12:53:16 Test Item Value Reference Range Interpretation Comments HIGH SENSITIVITY 672 pg/ml See_Comment HH [Automated message] TROPONIN I (test code The sy stem which = 0524585) generated this result transmitted ref erence range: <=17. Th e reference range was not used to int erpret this result as normal/abnormal . Nuclear Powerplant Mechanic Helper ID - MITCHThe SUPERVISOR REWORK STAT High Sensitivity Troponin-I results should be used in conjunction with other diagnostic information such as ECG, clinical observations and information, and patientsymptoms to aid in the diagnosis of CT. BASIC METABOLIC [id number] 12:38:44 Test Item Value Reference Range Interpretation [...] high >=90 G2 Mildly decreased 60-89 G3a Mild ly to moderately 45-5 9 G3b Moderately to [...] not appl icable for dialysis patien ts Nuclear Powerplant Mechanic Helper ID - MITCHSpecimen slightly ictericCBC W/PLT COUNT & AUTO [id number] 11:51:57 Test Item Value Reference Range Interpretation [...] (BEAKER) (test code = 2801) Blood gas, qrxzilkk1313-08-16 11:45:06 Test Item Value Reference Range Interpretation Comments pH, Arterial (test code 7.49 7.35-7.45 H = 2744-1) pCO2, Arterial (test 35 See_Comment [Autom ated message] code = 2019-8) The system [facility] generated this result transmit lavon reference range : 35 - 45 mm Hg. The reference range was not used to interpret this result as normal/abnormal . pO2, Arterial (test 133 See_Comment H [Automa lavon message] code = 2703-7) The system [facility] generated this result transmit lavon reference range [...] 60 Lab Interpretation Abnormal (test code = 61460-1) [facility], [id number] 11:45:06 Test Item Value Reference Range Interpretation Comments pH, Arterial (test code 7.49 7.35-7.45 H = 2744-1) pCO2, Arterial (test 35 See_Comment [Autom ated message] code = 2019-) The system [facility] generated this result transmit lavon reference range : 35 - 45 mm Hg. The reference range was not used to interpret this result as normal/abnormal . pO2, Arterial (test 133 See_Comment H [Automa lavon message] code = 2703-7) The system [facility] generated this result transmit lavon reference range [...] 60 Lab Interpretation Abnormal (test code = 29829-3) [facility] gas, sugdvslo2835-41-14 11:45:06 Test Item Value Reference Range Interpretation Comments pH, Arterial (test code 7.49 7.35-7.45 H = 2744-1) pCO2, Arterial (test 35 See_Comment [Autom ated message] code = 2018-) The system [facility] generated this result transmit lavon reference range : 35 - 45 mm Hg. The reference range was not used to interpret this result as normal/abnormal . pO2, Arterial (test 133 See_Comment H [Automa lavon message] code = 2703-7) The system [facility] generated this result transmit lavon reference range [...] 60 Lab Interpretation Abnormal (test code = 83054-7) [facility], dldvdmhn7966-73-87 11:45:06 Test Item Value Reference Range Interpretation Comments pH, Arterial (test code 7.49 7.35-7.45 H = 2744-1) pCO2, Arterial (test 35 See_Comment [Autom ated message] code = 2019-) The system [facility] generated this result transmit lavon reference range : 35 - 45 mm Hg. The reference range was not used to interpret this result as normal/abnormal . pO2, Arterial (test 133 See_Comment H [Automa lavon message] code = 2703-7) The system [facility] generated this result transmit lavon reference range [...] 60 Lab Interpretation Abnormal (test code = 95661-2) [facility] gas, [id number] 11:45:06 Test Item Value Reference Range Interpretation Comments pH, Arterial (test code 7.49 7.35-7.45 H = 2744-1) pCO2, Arterial (test 35 See_Comment [Autom ated message] code = 2019-) The system [facility] generated this result transmit lavon reference range : 35 - 45 mm Hg. The reference range was not used to interpret this result as normal/abnormal . pO2, Arterial (test 133 See_Comment H [Automa lavon message] code = 2703-7) The system [facility] generated this result transmit lavon reference range [...] 60 Lab Interpretation Abnormal (test code = 39376-4) [facility], [id number] 11:45:06 Test Item Value Reference Range Interpretation Comments pH, Arterial (test code 7.49 7.35-7.45 H = 2744-1) pCO2, Arterial (test 35 See_Comment [Autom ated message] code = 2019-06) The system [facility] generated this result transmit lavon reference range : 35 - 45 mm Hg. The reference range was not used to interpret this result as normal/abnormal . pO2, Arterial (test 133 See_Comment H [Automa lavon message] code = 2703-7) The system [facility] generated this result transmit lavon reference range [...] 60 Lab Interpretation Abnormal (test code = 63167-6) [facility] gas, [id number] 11:45:06 Test Item Value Reference Range Interpretation Comments pH, Arterial (test code 7.49 7.35-7.45 H = 2744-1) pCO2, Arterial (test 35 See_Comment [Autom ated message] code = 2019-) The system [facility] generated this result transmit lavon reference range : 35 - 45 mm Hg. The reference range was not used to interpret this result as normal/abnormal . pO2, Arterial (test 133 See_Comment H [Automa lavon message] code = 2703-7) The system [facility] generated this result transmit lavon reference range [...] 60 Lab Interpretation Abnormal (test code = 85163-8) [facility], [id number] 11:45:06 Test Item Value Reference Range Interpretation Comments pH, Arterial (test code 7.49 7.35-7.45 H = 2744-1) pCO2, Arterial (test 35 See_Comment [Autom ated message] code = 2019-) The system [facility] generated this result transmit lavon reference range : 35 - 45 mm Hg. The reference range was not used to interpret this result as normal/abnormal . pO2, Arterial (test 133 See_Comment H [Automa lavon message] code = 2703-7) The system [facility] generated this result transmit lavon reference range [...] 60 Lab Interpretation Abnormal (test code = 47969-5) [facility], xlmihsud8957-76-35 11:45:06 Test Item Value Reference Range Interpretation Comments pH, Arterial (test code 7.49 7.35-7.45 H = 2744-1) pCO2, Arterial (test 35 See_Comment [Autom ated message] code = 2019-8) The system [facility] generated this result transmit lavon reference range : 35 - 45 mm Hg. The reference range was not used to interpret this result as normal/abnormal . pO2, Arterial (test 133 See_Comment H [Automa lavon message] code = 2703-7) The system [facility] generated this result transmit lavon reference range [...] 60 Lab Interpretation Abnormal (test code = 35539-7) [facility], [id number] 11:45:06 Test Item Value Reference Range Interpretation Comments PH ARTERIAL (BEAKER) (test code = 7.49 7.35-7.45 H 383) PCO2 ARTERIAL (BEAKER) (test code 35 mm Hg 35-45 = 384) PO2 ARTERIAL (BEAKER) (test code = 133 mm Hg 80-90 H 385) O2 SATURATION ARTERIAL (BEAKER) 98.9 % 96.0-97.0 H (test code = 386) HCO3 ARTERIAL (BEAKER) (test code 26 mmol/L 21-29 = 388) BASE EXCESS ARTERIAL (BEAKER) 2.2 mmol/L -2.0-3.0 (test code = 387) PATIENT TEMPERATURE (BEAKER) (test 36.6 code = 1818) FIO2 (BEAKER) (test code = 1819) 60.0 BASIC METABOLIC [id number] 06:07:42 Test Item Value Reference Range Interpretation [...] not appl icable for dialysis patien ts Nuclear Powerplant Mechanic Helper ID - ADMINSpecimen slightly ictericCBC W/PLT COUNT & AUTO [id number] 04:50:05 Test Item Value Reference Range Interpretation [...] (test code = 2801) HIGH SENSITIVITY TROPONIN [id number] 17:55:26 Test Item Value Reference Range Interpretation Comments HIGH SENSITIVITY 941 pg/ml See_Comment HH [Automated message] TROPONIN I (test code The sy stem which = 1240830) generated this result transmitted ref erence range: <=17. Th e reference range was not used to int erpret this result as normal/abnormal . Nuclear Powerplant Mechanic Helper ID - ADMINThe SUPERVISOR REWORK STAT High Sensitivity Troponin-I results should be used in conjunction with other diagnostic information such as ECG, clinical observations and information, and patientsymptoms to aid in the diagnosis of CT. [id number] 14:38:16 Test Item Value Reference Range Interpretation Comments FERRITIN (BEAKER) (test code = 158.50 ng/mL 5.00-275.00 361) Nuclear Powerplant Mechanic Helper ID - ADMINHIGH SENSITIVITY TROPONIN [id number] 12:29:24 Test Item Value Reference Range Interpretation Comments HIGH SENSITIVITY 1054 pg/ml See_Comment HH [Automated message] TROPONIN I (test code The sy stem which = [id number]) generated this result transmitted ref erence range: <=17. Th e reference range was not used to int erpret this result as normal/abnormal . Nuclear Powerplant Mechanic Helper ID - AMANDA DThe SUPERVISOR REWORK STAT High Sensitivity Troponin-I results should be used in conjunction with other diagnostic information such as ECG, clinical observations and information, and patient symptoms to aid in the diagnosis of CT.IRON, TIBC, % SAT. (WITHOUT FERRITIN)2022-09-20 12:27:11 Test Item Value Reference Range Interpretation Comments IRON (BEAKER) (test code = 547) 48.0 ug/dL 40.0-160.0 TOTAL IRON BINDING CAPACITY 299 ug/dL 250-450 (BEAKER) (test code = 769) IRON % SATURATION (2) (BEAKER) 16 % 20-55 L (test code = 2590) Nuclear Powerplant Mechanic Helper ID Verenice PATEL [id number] 12:26:14 Test Item Value Reference Range Interpretation Comments MAGNESIUM (BEAKER) (test code = 1.9 mg/dL 1.6-2.6 627) Nuclear Powerplant Mechanic Helper ID Verenice PATEL DBASIC METABOLIC [id number] 12:26:14 Test Item Value Reference Range Interpretation [...] eGF R is based on the CKD-EPI 2021 equation that d oes not use a race coefficientEsti mated GFR is not as accur ate as Creatinine Kailyn lobo in predicting glom erular filtration rate . Estimated GFR is not appl icable for dialysis patien ts Nuclear Powerplant Mechanic Helper ID - AMANDA [place] slightly ictericLIPID [id number] 12:26:14 Test Item Value Reference Range Interpretation Comments TRIGLYCERIDES (BEAKER) (test code = 110 mg/dL 540) CHOLESTEROL (BEAKER) (test code = 114 mg/dL 631) HDL CHOLESTEROL (BEAKER) (test code 58 mg/dL = 976) LDL CHOLESTEROL CALCULATED (BEAKER) 34 mg/dL (test code = 633) Triglyceride Reference Range: Low Risk <150 Borderline 150-199 High Risk 200-499 Very High Risk >=500Cholesterol Reference Range: Low Risk <200 Borderline 200-239 High Risk >240HDL Cholesterol Reference Range: Low Risk >=60 High Risk <40LDL Cholesterol Reference Range: Optimal <100 Near Optimal 100-129 Borderline 130-159 High 160-189 Very High >=190 Nuclear Powerplant Mechanic Helper ID - AMANDA Cheatham slightly ictericCBC W/PLT COUNT & AUTO DIFFERENTIAL [...] code = 2801) ECHO W CONTRAST & [id number] 11:00:03Ejection FractionSLE ECHO HEARTLAB MKCKESSON [facility] W CONTRAST & DOPPLER 2022-09-20 11:00:03Ejection FractionSLEH ECHO HEARTLAB MKCKESSON [facility] W CONTRAST & [id number] 11:00:03Ejection FractionSLEH ECHO HEARTLAB MKCKESSON [facility] W CONTRAST & [id number] 11:00:03Ejection FractionSLEH ECHO HEARTLAB MKCKESSON [facility] W CONTRAST & DOPPLER 2022-09-20 11:00:03Ejection FractionSLEH ECHO HEARTLAB MKCKESSON [facility] W CONTRAST & [id number] 11:00:03Ejection FractionSLEH ECHO HEARTLAB MKCKESSON [facility] W CONTRAST & [id number] 11:00:03Ejection FractionSLEH ECHO HEARTLAB MKCKESSON [facility] W CONTRAST & DOPPLER 2022-09-20 11:00:03Ejection FractionSLEH ECHO HEARTLAB MKCKESSON [facility] W CONTRAST & [id number] 11:00:03Ejection FractionSLEH [facility]LAB [facility] [id number] 10:48:05 Test Item Value Reference Range Interpretation [...] 5.7- 6.4% indicates increased risk for diabetes (prediabetes)."Nuclear Powerplant Mechanic Helper ID - ADMOperator ID - ADMUrinalysis w/ [id number] 08:20:59 Test Item Value Reference Range Interpretation Comments Color, UA (test code Yellow = 5778-6) Clarity, UA (test Slightly Cloudy code = 5767-9) Specific [place], UA 1.020 1.001-1.035 (test code = 5811-5) pH, UA (test code = 6.5 5.0-8.0 5803-2) Protein, UA (test 10 mg/dL Negative A code = 86648-4) Glucose, UA (test Negative Negative code = 365) Ketones, UA (test Negative Negative code = 2514-8) Bilirubin, UA (test Negative Negative code = 76004-0) Blood, UA (test code Large Negative A = 76370-8) Nitrite, UA (test Negative Negative code = 5802-4) Leukocytes, UA (test Large Negative A code = 5799-2) Urobilinogen, UA 0.2 0.2-1.0 (test code = 61779-1) RBC, UA (test code = >182 See_Comment [Autom ated 13361-2) message] The system which generated this result [...] 8 See_Comment [Automate d (test code = 66998-9) messag e] The system which generated this result transmit lavon reference range : /LPF. The reference range was not used to interpret this result as normal/abnormal . Specimen Source (test Urine, Clean code = 2795) Catch ANGE (test code = ANGE) Nuclear Powerplant Mechanic Helper ID - [auto]Nuclear Powerplant Mechanic Helper ID - tech Lab Interpretation Abnormal (test code = 69976-1) [facility] [id number] 08:20:59 Test Item Value Reference Range Interpretation Comments Color, UA (test code Yellow = 5778-6) Clarity, UA (test Slightly Cloudy code = 5767-9) Specific [place], UA 1.020 1.001-1.035 (test code = 5811-5) pH, UA (test code = 6.5 5.0-8.0 5803-2) Protein, UA (test 10 mg/dL Negative A code = 96509-0) Glucose, UA (test Negative Negative code = 365) Ketones, UA (test Negative Negative code = 2514-8) Bilirubin, UA (test Negative Negative code = 71431-4) Blood, UA (test code Large Negative A = 63040-5) Nitrite, UA (test Negative Negative code = 5802-4) Leukocytes, UA (test Large Negative A code = 5799-2) Urobilinogen, UA 0.2 0.2-1.0 (test code = 90413-4) RBC, UA (test code = >182 See_Comment [Autom ated 43264-2) message] The system which generated this result [...] 8 See_Comment [Automate d (test code = 81130-7) messag e] The system which generated this result transmit lavon reference range : /LPF. The reference range was not used to interpret this result as normal/abnormal . Specimen Source (test Urine, Clean code = 2795) Catch ANGE (test code = ANGE) Nuclear Powerplant Mechanic Helper ID - [auto]Nuclear Powerplant Mechanic Helper ID - tech Lab Interpretation Abnormal (test code = 70330-0) [facility] [id number] 08:20:59 Test Item Value Reference Range Interpretation Comments Color, UA (test code Yellow = 5778-6) Clarity, UA (test Slightly Cloudy code = 5767-9) Specific [place], UA 1.020 1.001-1.035 (test code = 5811-5) pH, UA (test code = 6.5 5.0-8.0 5803-2) Protein, UA (test 10 mg/dL Negative A code = 95218-1) Glucose, UA (test Negative Negative code = 365) Ketones, UA (test Negative Negative code = 2514-8) Bilirubin, UA (test Negative Negative code = 23550-2) Blood, UA (test code Large Negative A = 65126-4) Nitrite, UA (test Negative Negative code = 5802-4) Leukocytes, UA (test Large Negative A code = 5799-2) Urobilinogen, UA 0.2 0.2-1.0 (test code = 08545-4) RBC, UA (test code = >182 See_Comment [Autom ated 97486-4) message] The system which generated this result [...] 8 See_Comment [Automate d (test code = 07369-3) messag e] The system which generated this result transmit lavon reference range : /LPF. The reference range was not used to interpret this result as normal/abnormal . Specimen Source (test Urine, Clean code = 2795) Catch ANGE (test code = ANGE) Nuclear Powerplant Mechanic Helper ID - [auto]Nuclear Powerplant Mechanic Helper ID - tech Lab Interpretation Abnormal (test code = 46251-2) [facility] [id number] 08:20:59 Test Item Value Reference Range Interpretation Comments Color, UA (test code Yellow = 5778-6) Clarity, UA (test Slightly Cloudy code = 5767-9) Specific [place], UA 1.020 1.001-1.035 (test code = 5811-5) pH, UA (test code = 6.5 5.0-8.0 5803-2) Protein, UA (test 10 mg/dL Negative A code = 06399-8) Glucose, UA (test Negative Negative code = 365) Ketones, UA (test Negative Negative code = 2514-8) Bilirubin, UA (test Negative Negative code = 27447-9) Blood, UA (test code Large Negative A = 21179-2) Nitrite, UA (test Negative Negative code = 5802-4) Leukocytes, UA (test Large Negative A code = 5799-2) Urobilinogen, UA 0.2 0.2-1.0 (test code = 77787-1) RBC, UA (test code = >182 See_Comment [Autom ated 85793-3) message] The system which generated this result [...] 8 See_Comment [Automate d (test code = 93625-9) messag e] The system which generated this result transmit lavon reference range : /LPF. The reference range was not used to interpret this result as normal/abnormal . Specimen Source (test Urine, Clean code = 2795) Catch ANGE (test code = ANGE) Nuclear Powerplant Mechanic Helper ID - [auto]Nuclear Powerplant Mechanic Helper ID - tech Lab Interpretation Abnormal (test code = 27716-6) [facility] [id number] 08:20:59 Test Item Value Reference Range Interpretation Comments Color, UA (test code Yellow = 5778-6) Clarity, UA (test Slightly Cloudy code = 5767-9) Specific [place], UA 1.020 1.001-1.035 (test code = 5811-5) pH, UA (test code = 6.5 5.0-8.0 5803-2) Protein, UA (test 10 mg/dL Negative A code = 27000-5) Glucose, UA (test Negative Negative code = 365) Ketones, UA (test Negative Negative code = 2514-8) Bilirubin, UA (test Negative Negative code = 40557-0) Blood, UA (test code Large Negative A = 79754-9) Nitrite, UA (test Negative Negative code = 5802-4) Leukocytes, UA (test Large Negative A code = 5799-2) Urobilinogen, UA 0.2 0.2-1.0 (test code = 62253-0) RBC, UA (test code = >182 See_Comment [Autom ated 72262-7) message] The system which generated this result [...] 8 See_Comment [Automate d (test code = 42889-4) messag e] The system which generated this result transmit lavon reference range : /LPF. The reference range was not used to interpret this result as normal/abnormal . Specimen Source (test Urine, Clean code = 2795) Catch ANGE (test code = ANGE) Nuclear Powerplant Mechanic Helper ID - [auto]Nuclear Powerplant Mechanic Helper ID - tech Lab Interpretation Abnormal (test code = 98101-1) [facility] [id number] 08:20:59 Test Item Value Reference Range Interpretation Comments Color, UA (test code Yellow = 5778-6) Clarity, UA (test Slightly Cloudy code = 5767-9) Specific [place], UA 1.020 1.001-1.035 (test code = 5811-5) pH, UA (test code = 6.5 5.0-8.0 5803-2) Protein, UA (test 10 mg/dL Negative A code = 47138-9) Glucose, UA (test Negative Negative code = 365) Ketones, UA (test Negative Negative code = 2514-8) Bilirubin, UA (test Negative Negative code = 60426-5) Blood, UA (test code Large Negative A = 48288-8) Nitrite, UA (test Negative Negative code = 5802-4) Leukocytes, UA (test Large Negative A code = 5799-2) Urobilinogen, UA 0.2 0.2-1.0 (test code = 84831-8) RBC, UA (test code = >182 See_Comment [Autom ated 95668-9) message] The system which generated this result [...] 8 See_Comment [Automate d (test code = 68829-1) messag e] The system which generated this result transmit lavon reference range : /LPF. The reference range was not used to interpret this result as normal/abnormal . Specimen Source (test Urine, Clean code = 2795) Catch ANGE (test code = ANGE) Nuclear Powerplant Mechanic Helper ID - [auto]Nuclear Powerplant Mechanic Helper ID - tech Lab Interpretation Abnormal (test code = 54031-3) [facility] [id number] 08:20:59 Test Item Value Reference Range Interpretation Comments Color, UA (test code Yellow = 5778-6) Clarity, UA (test Slightly Cloudy code = 5767-9) Specific [place], UA 1.020 1.001-1.035 (test code = 5811-5) pH, UA (test code = 6.5 5.0-8.0 5803-2) Protein, UA (test 10 mg/dL Negative A code = 26088-5) Glucose, UA (test Negative Negative code = 365) Ketones, UA (test Negative Negative code = 2514-8) Bilirubin, UA (test Negative Negative code = 44009-1) Blood, UA (test code Large Negative A = 02574-3) Nitrite, UA (test Negative Negative code = 5802-4) Leukocytes, UA (test Large Negative A code = 5799-2) Urobilinogen, UA 0.2 0.2-1.0 (test code = 48893-8) RBC, UA (test code = >182 See_Comment [Autom ated 42002-9) message] The system which generated this result [...] 8 See_Comment [Automate d (test code = 34864-5) messag e] The system which generated this result transmit lavon reference range : /LPF. The reference range was not used to interpret this result as normal/abnormal . Specimen Source (test Urine, Clean code = 2795) Catch ANGE (test code = ANGE) Nuclear Powerplant Mechanic Helper ID - [auto]Nuclear Powerplant Mechanic Helper ID - tech Lab Interpretation Abnormal (test code = 11372-1) [facility] [id number] 08:20:59 Test Item Value Reference Range Interpretation Comments Color, UA (test code Yellow = 5778-6) Clarity, UA (test Slightly Cloudy code = 5767-9) Specific [place], UA 1.020 1.001-1.035 (test code = 5811-5) pH, UA (test code = 6.5 5.0-8.0 5803-2) Protein, UA (test 10 mg/dL Negative A code = 81544-4) Glucose, UA (test Negative Negative code = 365) Ketones, UA (test Negative Negative code = 2514-8) Bilirubin, UA (test Negative Negative code = 68126-9) Blood, UA (test code Large Negative A = 34819-6) Nitrite, UA (test Negative Negative code = 5802-4) Leukocytes, UA (test Large Negative A code = 5799-2) Urobilinogen, UA 0.2 0.2-1.0 (test code = 93604-5) RBC, UA (test code = >182 See_Comment [Autom ated 10072-8) message] The system which generated this result [...] 8 See_Comment [Automate d (test code = 07834-5) messag e] The system which generated this result transmit lavon reference range : /LPF. The reference range was not used to interpret this result as normal/abnormal . Specimen Source (test Urine, Clean code = 2795) Catch ANGE (test code = ANGE) Nuclear Powerplant Mechanic Helper ID - [auto]Nuclear Powerplant Mechanic Helper ID - tech Lab Interpretation Abnormal (test code = 74601-4) [facility] [id number] 08:20:59 Test Item Value Reference Range Interpretation Comments Color, UA (test code Yellow = 5778-6) Clarity, UA (test Slightly Cloudy code = 5767-9) Specific [place], UA 1.020 1.001-1.035 (test code = 5811-5) pH, UA (test code = 6.5 5.0-8.0 5803-2) Protein, UA (test 10 mg/dL Negative A code = 20892-2) Glucose, UA (test Negative Negative code = 365) Ketones, UA (test Negative Negative code = 2514-8) Bilirubin, UA (test Negative Negative code = 39802-5) Blood, UA (test code Large Negative A = 87662-9) Nitrite, UA (test Negative Negative code = 5802-4) Leukocytes, UA (test Large Negative A code = 5799-2) Urobilinogen, UA 0.2 0.2-1.0 (test code = 79277-3) RBC, UA (test code = >182 See_Comment [Autom ated 64287-6) message] The system which generated this result [...] 8 See_Comment [Automate d (test code = 19289-9) messag e] The system which generated this result transmit lavon reference range : /LPF. The reference range was not used to interpret this result as normal/abnormal . Specimen Source (test Urine, Clean code = 2795) Catch ANGE (test code = ANGE) Nuclear Powerplant Mechanic Helper ID - [auto]Nuclear Powerplant Mechanic Helper ID - tech Lab Interpretation Abnormal (test code = 65386-5) [facility] [id number] 08:20:59 Test Item Value Reference Range Interpretation [...] (test code Urine, Clean Catch = 2795) Nuclear Powerplant Mechanic Helper ID - [auto]Nuclear Powerplant Mechanic Helper ID - techRAD, CHEST, 1 VIEW, NON [id number] 03:36:00Reason for exam:->pleural effusionsShould this be performed at the bedside?->YesCH[facility] : 1935 Sex: FFINAL [...] Verified Date/Time: 09/20/2022 03:36:43 HIGH SENSITIVITY TROPONIN [id number] 22:45:53 Test Item Value Reference Range Interpretation Comments HIGH SENSITIVITY 1563 pg/ml See_Comment HH [Automated message] TROPONIN I (test code The sy stem which = 3893236) generated this result transmitted ref erence range: <=17. Th e reference range was not used to int erpret this result as normal/abnormal . Nuclear Powerplant Mechanic Helper ID - BSThe SUPERVISOR REWORK STAT High Sensitivity Troponin-I results should be used in conjunctionwith other diagnostic information such as ECG, clinical observations and information, and patient symptoms to aid in the diagnosis of CT.B-TYPE NATRIURETIC FACTOR (BNP)2022-09-19 22:44:11 Test Item Value Reference Range Interpretation Comments B-TYPE NATRIURETIC PEPTIDE 1572 pg/mL 0-100 H (BEAKER) (test code = 700) Nuclear Powerplant Mechanic Helper ID - BSCOMPREHENSIVE METABOLIC [id number] 22:37:49 Test Item Value Reference Range Interpretation [...] not appl icable for dialysis patien ts Nuclear Powerplant Mechanic Helper ID - BSLACTIC ACID, [id number] 22:28:48 Test Item Value Reference Range Interpretation Comments LACTATE BLOOD VENOUS (2) (BEAKER) 1.19 mmol/L 0.50-2.20 (test code = 2872) 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 W/PLT COUNT & AUTO [id number] 22:22:58 Test Item Value Reference Range Interpretation [...] PERCENT (BEAKER) (test code = 2801) Prepare [id number] 23:54:00 Test Item Value Reference Range Interpretation Comments Unit ABO (test code = O Pos 0231999) UNIT NUMBER (test code = [id number] 934-0) Status (test code = 8571512) TX_TIMEINCHART Blood Bank Product (test code RED BLOOD CELLS = 2263) PRODUCT CODE (test code = C3696U96 933-2) CROSSMATCH (test code = 2264) COMPATIBLE [facility] [id number] 23:54:00 Test Item Value Reference Range Interpretation Comments Unit ABO (test code = O Pos 7794644) UNIT NUMBER (test code = [id number] 934-0) Status (test code = 2496743) TX_TIMEINCHART Blood Bank Product (test code RED BLOOD CELLS = 2263) PRODUCT CODE (test code = B9178F46 933-2) CROSSMATCH (test code = 2264) COMPATIBLE [facility] HospitalANG, CV ACCESS, [id number] 07:43:00 [facility] : 1935 Sex: [...] the patient's medical record by the nurse. Mill Operator Head: Lemuel Montilla MD Special Education Science Teacher: None. Approach: Right internal jugular vein Estimated [...] needle into the right atrium. A 4 Russian micropuncture sheath was placed and a 0.035 wire was advanced into the IVC. A subcutaneous tunnel and pocket were created in the right anterior chest wall by blunt dissection. The pocket was flushed with antibiotic solution. A 6 Russian Bard single lumen power injectable port was [...] ready for immediate use. Signed: Lemuel Montilla MDRepdomonique Verified Date/Time: 08/26/2022 07:43:31 Reading Location: [place] [address] Angio Body Reading Room ANG, TUNNEL CATH CENTRAL INS W/PORT [id number] 07:43:00 [facility] : 1935 Sex: [...] the patient's medical record by the nurse. Mill Operator Head: Lemuel Montilla MD Special Education Science Teacher: None. Approach: Right internal jugular vein Estimated [...] jugular vein, which was punctured under direct real-time ultrasound guidance with a micropuncture needle. An ultrasound image was saved to PACS. A 0.018 inch wire was placed through the needle into the right atrium. A 4 Russian micropuncture sheath was placed and a 0.035 wire was advanced into the IVC. A subcutaneous tunnel and pocket were created in the right anterior chest wall by blunt dissection. The pocket was flushed with antibiotic solution. A 6 Russian Bard single lumen power injectable port was [...] radiograph of the chest demonstrates the new rightIJ Port-A-Cath to lie in the expected position with its tip overlying the cavoatrial junction. Impression: Successful, uncomplicated placement of a right internal jugular chest port using sonographic and fluoroscopic guidance and conscious sedation. The port is ready for immediate use. Signed: Lemuel Montilla MDReport Verified Date/Time: 08/26/2022 07:43:31 Reading Location: [place] [id number] Angio Body Reading Room H, U/S GUIDANCE FOR VASCULAR [id number] 07:43:00 [facility] : 1935 Sex: FFINAL [...] the patient's medical record by the nurse. Mill Operator Head: Lemuel Montilla MD Special Education Science Teacher: None. Approach: Right internal jugular vein Estimated [...] jugular vein, which was punctured under direct real-time ultrasound guidance with a micropuncture needle. An ultrasound image was saved to PACS. A 0.018 inch wire was placed through the needle into the right atrium. A 4 Russian micropuncture sheath was placed and a 0.035 wire was advanced into the IVC. A subcutaneous tunnel and pocket were created in the right anterior chest wall by blunt dissection. The pocket was flushed with antibiotic solution. A 6 Russian Bard single lumen power injectable port was [...] radiograph of the chest demonstrates the new rightIJ Port-A-Cath to lie in the expected position with its tip overlying the cavoatrial junction. Impression: Successful, uncomplicated placement of a right internal jugular chest port using sonographic and fluoroscopic guidance and conscious sedation. The port is ready for immediate use. Signed: Lemuel Montillasaint [facility]uke[facility] Verified Date/Time: 08/26/2022 07:43:31 Reading Location: [place] [address] Angio Body Reading Room U/S, THORACENTESIS 2022-08-18 17:37:00Malignant pleural effusion- needs right sided pleural effusion drainedNO CYTOLOGY NEEDED!Release to patient->ImmediateWhich [facility] / [facility] radiology location is preferred?->[place] [facility] : 1935 Sex: FFINAL REPORT Ultrasound guided right thoracentesis. Clinical History: Right pleural effusion. Modality: Ultrasound. Sedation: None. Mill Operator Head: Arin Landry PA-C Special Education Science Teacher: None. Estimated Blood Loss: 1cc Specimen: 800 [...] in the usual sterile manner. The area wasanesthetized with 2% lidocaine, a 5 F one-step catheter was advanced into the pleural space under ult rasound guidance. After completion of drainage, the catheter was removed. There was no evidence of immediate complication. Post procedure chest x-ray demonstrated no pneumothorax. Impression:Successfuland uncomplicated ultrasound guided right thoracentesis. Signed: Maurice Freedmansaint luke[facility] hospital Verified Date/Time: 08/18/2022 17:37:10 Reading Location: [address] Ultrasound Reading Room RAD, CHEST, 1 VIEW, NON [id number] 12:40:00Reason for exam:->s/p right thoraShould this be performed at the bedside?->YesIn [place] [facility] : 1935 Sex: FFINAL REPORT INDICATION: s/p [...] Richards MDReportVerified Date/Time: 08/18/2022 12:40:12 Reading Location: [address] Reading Room PROTHROMBIN TIME/[id number] 10:35:53 Test Item Value Reference Range Interpretation Comments PROTIME (BEAKER) 15.2 seconds 11.9-14.2 H (test code = 759) INR (BEAKER) (test 1.22 See_Comment [Automat ed message] code = 370) The system [employer] generated this result transmitted ref erence range: <=5.90. The reference range was not used to int erpret this result as normal/abnormal . RECOMMENDED COUMADIN/WARFARIN INR THERAPY RANGESSTANDARD DOSE: 2.0 - 3.0 Includes: PROPHYLAXIS for venous thrombosis, systemic embolization; TREATMENT for venous thrombosis and/or pulmonary embolus.HIGH RISK: Target INR is 2.5-3.5 for patients with mechanical heart valves.CBC W/PLT COUNT & AUTO [id number] 10:18:44 Test Item Value Reference Range Interpretation [...] PERCENT (BEAKER) (test code = 2801) CT, [id number] 09:21:00Unlisted Reason for Exam - Click Yes and Enter Reason Below->YesUnlisted Reason for Exam->malignant neoplasm of both ovariesIs this for enterography?->NoWill this procedure require oral contras t?->YesCH[facility] : 1935 Sex: FFINAL [...] Craven Verified Date/Time: 08/04/2022 09:21:00 Reading Location: [address] Reading [address] CT, CHEST, WITH IV [id number] 09:21:00Unlisted Reason for Exam - Click Yes and Enter Reason Below->YesUnlisted Reason for Exam->malignant neoplasm of both ovaries [facility] : 1935 Sex: [...] Cravenort Verified Date/Time: 08/04/2022 09:21:00 Reading Location: [facility] K006RYdfiq Consult Reading Room . [facility] [id number] 12:01:00 Test Item Value Reference Range Interpretation Comments Glucose Lvl (test code = Glucose Lvl) 104 70-99 [facility]2022-07-29 12:01:00 Test Item Value Reference Range Interpretation Comments BUN (test code = BUN) 06-10 [facility]2022-07-29 12:01:00 Test Item Value Reference Range Interpretation Comments Creatinine Lvl (test code = Creatinine 0.98 0.50-1.40 Lvl) [facility]2022-07-29 12:01:00 Test Item Value Reference Range Interpretation Comments Sodium Lvl (test code = Sodium Lvl) 133 135-145 [place] [id number] 12:01:00 Test Item Value Reference Range Interpretation Comments Potassium Lvl (test code = Potassium 2.7 3.5-5.1 Lvl) [facility]2022-07-29 12:01:00 Test Item Value Reference Range Interpretation Comments Chloride Lvl (test code = Chloride Lvl) 91 95-109 [facility]2022-07-29 12:01:00 Test Item Value Reference Range Interpretation Comments CO2 (test code = CO2) 33 24-32 [facility]2022-07-29 12:01:00 Test Item Value Reference Range Interpretation Comments AGAP (test code = AGAP) 11.7 10.0-20.0 [facility]2022-07-29 12:01:00 Test Item Value Reference Range Interpretation Comments Calcium Lvl (test code = Calcium Lvl) 7.9 8.5-10.5 [facility]2022-07-29 12:01:00 Test Item Value Reference Range Interpretation Comments eGFR (test code = eGFR) 56 [facility]2022-07-29 12:01:00 Test Item Value Reference Range Interpretation Comments Magnesium Lvl (test code = Magnesium 1.7 1.8-2.4 Lvl) [facility]2022-07-29 12:01:00 Test Item Value Reference Range Interpretation Comments Glucose Lvl (test code = Glucose Lvl) 104 70-99 [facility]2022-07-29 12:01:00 Test Item Value Reference Range Interpretation Comments BUN (test code = BUN) 06-10 [place] 480482-07-29 12:01:00 Test Item Value Reference Range Interpretation Comments Creatinine Lvl (test code = Creatinine 0.98 0.50-1.40 Lvl) [place] 480482-07-29 12:01:00 Test Item Value Reference Range Interpretation Comments Sodium Lvl (test code = Sodium Lvl) 133 135-145 [place] 480482-07-29 12:01:00 Test Item Value Reference Range Interpretation Comments Potassium Lvl (test code = Potassium 2.7 3.5-5.1 Lvl) [place] 480482-07-29 12:01:00 Test Item Value Reference Range Interpretation Comments Chloride Lvl (test code = Chloride Lvl) 91 95-109 [place] 480482-07-29 12:01:00 Test Item Value Reference Range Interpretation Comments CO2 (test code = CO2) 33 24-32 [place] 480482-07-29 12:01:00 Test Item Value Reference Range Interpretation Comments AGAP (test code = AGAP) 11.7 10.0-20.0 [place] 480482-07-29 12:01:00 Test Item Value Reference Range Interpretation Comments Calcium Lvl (test code = Calcium Lvl) 7.9 8.5-10.5 [place] 480482-07-29 12:01:00 Test Item Value Reference Range Interpretation Comments eGFR (test code = eGFR) 56 [place] 480482-07-29 12:01:00 Test Item Value Reference Range Interpretation Comments Magnesium Lvl (test code = Magnesium 1.7 1.8-2.4 Lvl) [place] 480482-07-29 12:01:00 Test Item Value Reference Range Interpretation Comments Glucose Lvl (test code = Glucose Lvl) 104 70-99 [place] 480482-07-29 12:01:00 Test Item Value Reference Range Interpretation Comments BUN (test code = BUN) 29 7-22 [place] 480482-07-29 12:01:00 Test Item Value Reference Range Interpretation Comments Creatinine Lvl (test code = Creatinine 0.98 0.50-1.40 Lvl) [place] 480482-07-29 12:01:00 Test Item Value Reference Range Interpretation Comments Sodium Lvl (test code = Sodium Lvl) 133 135-145 [place] 480482-07-29 12:01:00 Test Item Value Reference Range Interpretation Comments Potassium Lvl (test code = Potassium 2.7 3.5-5.1 Lvl) [place] 480482-07-29 12:01:00 Test Item Value Reference Range Interpretation Comments Chloride Lvl (test code = Chloride Lvl) 91 95-109 [place] 480482-07-29 12:01:00 Test Item Value Reference Range Interpretation Comments CO2 (test code = CO2) 33 24-32 [place] 480482-07-29 12:01:00 Test Item Value Reference Range Interpretation Comments AGAP (test code = AGAP) 11.7 10.0-20.0 [place] 480482-07-29 12:01:00 Test Item Value Reference Range Interpretation Comments Calcium Lvl (test code = Calcium Lvl) 7.9 8.5-10.5 [place] 480482-07-29 12:01:00 Test Item Value Reference Range Interpretation Comments eGFR (test code = eGFR) 56 [place] 480482-07-29 12:01:00 Test Item Value Reference Range Interpretation Comments Magnesium Lvl (test code = Magnesium 1.7 1.8-2.4 Lvl) [facility]2022-07-29 12:01:00 Test Item Value Reference Range Interpretation Comments Glucose Lvl (test code = Glucose Lvl) 104 70-99 [place] 480482-07-29 12:01:00 Test Item Value Reference Range Interpretation Comments BUN (test code = BUN) 29 7-22 [place] 480482-07-29 12:01:00 Test Item Value Reference Range Interpretation Comments Creatinine Lvl (test code = Creatinine 0.98 0.50-1.40 Lvl) [place] 480482-07-29 12:01:00 Test Item Value Reference Range Interpretation Comments Sodium Lvl (test code = Sodium Lvl) 133 135-145 [place] 480482-07-29 12:01:00 Test Item Value Reference Range Interpretation Comments Potassium Lvl (test code = Potassium 2.7 3.5-5.1 Lvl) [place] 480482-07-29 12:01:00 Test Item Value Reference Range Interpretation Comments Chloride Lvl (test code = Chloride Lvl) 91 95-109 [place] 480482-07-29 12:01:00 Test Item Value Reference Range Interpretation Comments CO2 (test code = CO2) 33 24-32 [facility]2022-07-29 12:01:00 Test Item Value Reference Range Interpretation Comments AGAP (test code = AGAP) 11.7 10.0-20.0 [place] 480482-07-29 12:01:00 Test Item Value Reference Range Interpretation Comments Calcium Lvl (test code = Calcium Lvl) 7.9 8.5-10.5 [place] 480482-07-29 12:01:00 Test Item Value Reference Range Interpretation Comments eGFR (test code = eGFR) 56 [facility]2022-07-29 12:01:00 Test Item Value Reference Range Interpretation Comments Magnesium Lvl (test code = Magnesium 1.7 1.8-2.4 Lvl) [facility]2022-07-29 12:01:00 Test Item Value Reference Range Interpretation Comments Glucose Lvl (test code = Glucose Lvl) 104 70-99 [facility]2022-07-29 12:01:00 Test Item Value Reference Range Interpretation Comments BUN (test code = BUN) 29 7-22 [facility]2022-07-29 12:01:00 Test Item Value Reference Range Interpretation Comments Creatinine Lvl (test code = Creatinine 0.98 0.50-1.40 Lvl) [place] 480482-07-29 12:01:00 Test Item Value Reference Range Interpretation Comments Sodium Lvl (test code = Sodium Lvl) 133 135-145 [place] 480482-07-29 12:01:00 Test Item Value Reference Range Interpretation Comments Potassium Lvl (test code = Potassium 2.7 3.5-5.1 Lvl) [facility]2022-07-29 12:01:00 Test Item Value Reference Range Interpretation Comments Chloride Lvl (test code = Chloride Lvl) 91 95-109 [facility]2022-07-29 12:01:00 Test Item Value Reference Range Interpretation Comments CO2 (test code = CO2) 33 24-32 [facility]2022-07-29 12:01:00 Test Item Value Reference Range Interpretation Comments AGAP (test code = AGAP) 11.7 10.0-20.0 [place] 480482-07-29 12:01:00 Test Item Value Reference Range Interpretation Comments Calcium Lvl (test code = Calcium Lvl) 7.9 8.5-10.5 [place] 480482-07-29 12:01:00 Test Item Value Reference Range Interpretation Comments eGFR (test code = eGFR) 56 [place] 480482-07-29 12:01:00 Test Item Value Reference Range Interpretation Comments Magnesium Lvl (test code = Magnesium 1.7 1.8-2.4 Lvl) [place] 480482-07-29 12:01:00 Test Item Value Reference Range Interpretation Comments Glucose Lvl (test code = Glucose Lvl) 104 70-99 [place] 480482-07-29 12:01:00 Test Item Value Reference Range Interpretation Comments BUN (test code = BUN) 29 7-22 [place] 480482-07-29 12:01:00 Test Item Value Reference Range Interpretation Comments Creatinine Lvl (test code = Creatinine 0.98 0.50-1.40 Lvl) [place] 480482-07-29 12:01:00 Test Item Value Reference Range Interpretation Comments Sodium Lvl (test code = Sodium Lvl) 133 135-145 [place] 480482-07-29 12:01:00 Test Item Value Reference Range Interpretation Comments Potassium Lvl (test code = Potassium 2.7 3.5-5.1 Lvl) [place] 480482-07-29 12:01:00 Test Item Value Reference Range Interpretation Comments Chloride Lvl (test code = Chloride Lvl) 91 95-109 [place] 480482-07-29 12:01:00 Test Item Value Reference Range Interpretation Comments CO2 (test code = CO2) 33 24-32 [place] 480482-07-29 12:01:00 Test Item Value Reference Range Interpretation Comments AGAP (test code = AGAP) 11.7 10.0-20.0 [place] 480482-07-29 12:01:00 Test Item Value Reference Range Interpretation Comments Calcium Lvl (test code = Calcium Lvl) 7.9 8.5-10.5 [place] 480482-07-29 12:01:00 Test Item Value Reference Range Interpretation Comments eGFR (test code = eGFR) 56 [place] 480482-07-29 12:01:00 Test Item Value Reference Range Interpretation Comments Magnesium Lvl (test code = Magnesium 1.7 1.8-2.4 Lvl) [place] 480482-07-29 12:01:00 Test Item Value Reference Range Interpretation Comments Glucose Lvl (test code = Glucose Lvl) 104 70-99 [place] 480482-07-29 12:01:00 Test Item Value Reference Range Interpretation Comments BUN (test code = BUN) 29 7-22 [place] 480482-07-29 12:01:00 Test Item Value Reference Range Interpretation Comments Creatinine Lvl (test code = Creatinine 0.98 0.50-1.40 Lvl) [place] 480482-07-29 12:01:00 Test Item Value Reference Range Interpretation Comments Sodium Lvl (test code = Sodium Lvl) 133 135-145 [place] 480482-07-29 12:01:00 Test Item Value Reference Range Interpretation Comments Potassium Lvl (test code = Potassium 2.7 3.5-5.1 Lvl) [place] 480482-07-29 12:01:00 Test Item Value Reference Range Interpretation Comments Chloride Lvl (test code = Chloride Lvl) 91 95-109 [place] 480482-07-29 12:01:00 Test Item Value Reference Range Interpretation Comments CO2 (test code = CO2) 33 24-32 [place] 480482-07-29 12:01:00 Test Item Value Reference Range Interpretation Comments AGAP (test code = AGAP) 11.7 10.0-20.0 [place] 480482-07-29 12:01:00 Test Item Value Reference Range Interpretation Comments Calcium Lvl (test code = Calcium Lvl) 7.9 8.5-10.5 [place] 480482-07-29 12:01:00 Test Item Value Reference Range Interpretation Comments eGFR (test code = eGFR) 56 [place] 480482-07-29 12:01:00 Test Item Value Reference Range Interpretation Comments Magnesium Lvl (test code = Magnesium 1.7 1.8-2.4 Lvl) [facility]2022-07-29 12:01:00 Test Item Value Reference Range Interpretation Comments Glucose Lvl (test code = Glucose Lvl) 104 70-99 [place] 480482-07-29 12:01:00 Test Item Value Reference Range Interpretation Comments BUN (test code = BUN) 29 7-22 [place] 480482-07-29 12:01:00 Test Item Value Reference Range Interpretation Comments Creatinine Lvl (test code = Creatinine 0.98 0.50-1.40 Lvl) [place] 480482-07-29 12:01:00 Test Item Value Reference Range Interpretation Comments Sodium Lvl (test code = Sodium Lvl) 133 135-145 [place] 480482-07-29 12:01:00 Test Item Value Reference Range Interpretation Comments Potassium Lvl (test code = Potassium 2.7 3.5-5.1 Lvl) [place] 480482-07-29 12:01:00 Test Item Value Reference Range Interpretation Comments Chloride Lvl (test code = Chloride Lvl) 91 95-109 [place] 480482-07-29 12:01:00 Test Item Value Reference Range Interpretation Comments CO2 (test code = CO2) 33 24-32 [facility]2022-07-29 12:01:00 Test Item Value Reference Range Interpretation Comments AGAP (test code = AGAP) 11.7 10.0-20.0 [place] 480482-07-29 12:01:00 Test Item Value Reference Range Interpretation Comments Calcium Lvl (test code = Calcium Lvl) 7.9 8.5-10.5 [facility]2022-07-29 12:01:00 Test Item Value Reference Range Interpretation Comments eGFR (test code = eGFR) 56 [place] 480482-07-29 12:01:00 Test Item Value Reference Range Interpretation Comments Magnesium Lvl (test code = Magnesium 1.7 1.8-2.4 Lvl) [place] 480482-07-29 12:01:00 Test Item Value Reference Range Interpretation Comments Glucose Lvl (test code = Glucose Lvl) 104 70-99 [place] 480482-07-29 12:01:00 Test Item Value Reference Range Interpretation Comments BUN (test code = BUN) 06-10 [facility]2022-07-29 12:01:00 Test Item Value Reference Range Interpretation Comments Creatinine Lvl (test code = Creatinine 0.98 0.50-1.40 Lvl) [facility]2022-07-29 12:01:00 Test Item Value Reference Range Interpretation Comments Sodium Lvl (test code = Sodium Lvl) 133 135-145 [place] 480482-07-29 12:01:00 Test Item Value Reference Range Interpretation Comments Potassium Lvl (test code = Potassium 2.7 3.5-5.1 Lvl) [facility]2022-07-29 12:01:00 Test Item Value Reference Range Interpretation Comments Chloride Lvl (test code = Chloride Lvl) 91 95-109 [facility]2022-07-29 12:01:00 Test Item Value Reference Range Interpretation Comments CO2 (test code = CO2) 33 24-32 [facility]2022-07-29 12:01:00 Test Item Value Reference Range Interpretation Comments AGAP (test code = AGAP) 11.7 10.0-20.0 [facility]2022-07-29 12:01:00 Test Item Value Reference Range Interpretation Comments Calcium Lvl (test code = Calcium Lvl) 7.9 8.5-10.5 [facility]2022-07-29 12:01:00 Test Item Value Reference Range Interpretation Comments eGFR (test code = eGFR) 56 [facility]2022-07-29 12:01:00 Test Item Value Reference Range Interpretation Comments Magnesium Lvl (test code = Magnesium 1.7 1.8-2.4 Lvl) [facility]2022-07-29 12:01:00 Test Item Value Reference Range Interpretation Comments Glucose Lvl (test code = Glucose Lvl) 104 70-99 [facility]2022-07-29 12:01:00 Test Item Value Reference Range Interpretation Comments BUN (test code = BUN) 29 06-10 [place] 480482-07-29 12:01:00 Test Item Value Reference Range Interpretation Comments Creatinine Lvl (test code = Creatinine 0.98 0.50-1.40 Lvl) [facility]2022-07-29 12:01:00 Test Item Value Reference Range Interpretation Comments Sodium Lvl (test code = Sodium Lvl) 133 135-145 [place] 480482-07-29 12:01:00 Test Item Value Reference Range Interpretation Comments Potassium Lvl (test code = Potassium 2.7 3.5-5.1 Lvl) [place] 480482-07-29 12:01:00 Test Item Value Reference Range Interpretation Comments Chloride Lvl (test code = Chloride Lvl) 91 95-109 [place] 480482-07-29 12:01:00 Test Item Value Reference Range Interpretation Comments CO2 (test code = CO2) 33 24-32 [place] 480482-07-29 12:01:00 Test Item Value Reference Range Interpretation Comments AGAP (test code = AGAP) 11.7 10.0-20.0 [place] 480482-07-29 12:01:00 Test Item Value Reference Range Interpretation Comments Calcium Lvl (test code = Calcium Lvl) 7.9 8.5-10.5 [facility]2022-07-29 12:01:00 Test Item Value Reference Range Interpretation Comments eGFR (test code = eGFR) 56 [facility]2022-07-29 12:01:00 Test Item Value Reference Range Interpretation Comments Magnesium Lvl (test code = Magnesium 1.7 1.8-2.4 Lvl) [facility]2022-07-29 12:01:00 Test Item Value Reference Range Interpretation Comments Glucose Lvl (test code = Glucose Lvl) 104 70-99 [facility]2022-07-29 12:01:00 Test Item Value Reference Range Interpretation Comments BUN (test code = BUN) 29 7-22 [place] 480482-07-29 12:01:00 Test Item Value Reference Range Interpretation Comments Creatinine Lvl (test code = Creatinine 0.98 0.50-1.40 Lvl) [facility]2022-07-29 12:01:00 Test Item Value Reference Range Interpretation Comments Sodium Lvl (test code = Sodium Lvl) 133 135-145 [place] 480482-07-29 12:01:00 Test Item Value Reference Range Interpretation Comments Potassium Lvl (test code = Potassium 2.7 3.5-5.1 Lvl) [place] 480482-07-29 12:01:00 Test Item Value Reference Range Interpretation Comments Chloride Lvl (test code = Chloride Lvl) 91 95-109 [place] 480482-07-29 12:01:00 Test Item Value Reference Range Interpretation Comments CO2 (test code = CO2) 33 -32 [place] 480482-07-29 12:01:00 Test Item Value Reference Range Interpretation Comments AGAP (test code = AGAP) 11.7 10.0-20.0 [place] 480482-07-29 12:01:00 Test Item Value Reference Range Interpretation Comments Calcium Lvl (test code = Calcium Lvl) 7.9 8.5-10.5 [place] 480482-07-29 12:01:00 Test Item Value Reference Range Interpretation Comments eGFR (test code = eGFR) 56 [place] 480482-07-29 12:01:00 Test Item Value Reference Range Interpretation Comments Magnesium Lvl (test code = Magnesium 1.7 1.8-2.4 Lvl) [facility]2022-07-29 12:01:00 Test Item Value Reference Range Interpretation Comments Glucose Lvl (test code = Glucose Lvl) 104 70-99 [place] 480482-07-29 12:01:00 Test Item Value Reference Range Interpretation Comments BUN (test code = BUN) 29 7-22 [place] 480482-07-29 12:01:00 Test Item Value Reference Range Interpretation Comments Creatinine Lvl (test code = Creatinine 0.98 0.50-1.40 Lvl) [place] 480482-07-29 12:01:00 Test Item Value Reference Range Interpretation Comments Sodium Lvl (test code = Sodium Lvl) 133 135-145 [place] 480482-07-29 12:01:00 Test Item Value Reference Range Interpretation Comments Potassium Lvl (test code = Potassium 2.7 3.5-5.1 Lvl) [facility]2022-07-29 12:01:00 Test Item Value Reference Range Interpretation Comments Chloride Lvl (test code = Chloride Lvl) 91 95-109 [place] 480482-07-29 12:01:00 Test Item Value Reference Range Interpretation Comments CO2 (test code = CO2) 33 24-32 [facility]2022-07-29 12:01:00 Test Item Value Reference Range Interpretation Comments AGAP (test code = AGAP) 11.7 10.0-20.0 [place] 480482-07-29 12:01:00 Test Item Value Reference Range Interpretation Comments Calcium Lvl (test code = Calcium Lvl) 7.9 8.5-10.5 [place] 480482-07-29 12:01:00 Test Item Value Reference Range Interpretation Comments eGFR (test code = eGFR) 56 [place] 480482-07-29 12:01:00 Test Item Value Reference Range Interpretation Comments Magnesium Lvl (test code = Magnesium 1.7 1.8-2.4 Lvl) [place] 480482-07-29 12:01:00 Test Item Value Reference Range Interpretation Comments Glucose Lvl (test code = Glucose Lvl) 104 70-99 [place] 480482-07-29 12:01:00 Test Item Value Reference Range Interpretation Comments BUN (test code = BUN) 29 7-22 [place] 480482-07-29 12:01:00 Test Item Value Reference Range Interpretation Comments Creatinine Lvl (test code = Creatinine 0.98 0.50-1.40 Lvl) [place] 480482-07-29 12:01:00 Test Item Value Reference Range Interpretation Comments Sodium Lvl (test code = Sodium Lvl) 133 135-145 [place] 480482-07-29 12:01:00 Test Item Value Reference Range Interpretation Comments Potassium Lvl (test code = Potassium 2.7 3.5-5.1 Lvl) [facility]2022-07-29 12:01:00 Test Item Value Reference Range Interpretation Comments Chloride Lvl (test code = Chloride Lvl) 91 95-109 [place] 480482-07-29 12:01:00 Test Item Value Reference Range Interpretation Comments CO2 (test code = CO2) 33 -32 [facility]2022-07-29 12:01:00 Test Item Value Reference Range Interpretation Comments AGAP (test code = AGAP) 11.7 10.0-20.0 [place] [address]482-07-29 12:01:00 Test Item Value Reference Range Interpretation Comments Calcium Lvl (test code = Calcium Lvl) 7.9 8.5-10.5 [place] 480482-07-29 12:01:00 Test Item Value Reference Range Interpretation Comments eGFR (test code = eGFR) 56 [facility]2022-07-29 12:01:00 Test Item Value Reference Range Interpretation Comments Magnesium Lvl (test code = Magnesium 1.7 1.8-2.4 Lvl) [place] 480482-07-29 12:01:00 Test Item Value Reference Range Interpretation Comments Glucose Lvl (test code = Glucose Lvl) 104 70-99 [place] 480482-07-29 12:01:00 Test Item Value Reference Range Interpretation Comments BUN (test code = BUN) 29 7-22 [place] 480482-07-29 12:01:00 Test Item Value Reference Range Interpretation Comments Creatinine Lvl (test code = Creatinine 0.98 0.50-1.40 Lvl) [facility]2022-07-29 12:01:00 Test Item Value Reference Range Interpretation Comments Sodium Lvl (test code = Sodium Lvl) 133 135-145 [place] 480482-07-29 12:01:00 Test Item Value Reference Range Interpretation Comments Potassium Lvl (test code = Potassium 2.7 3.5-5.1 Lvl) [facility]2022-07-29 12:01:00 Test Item Value Reference Range Interpretation Comments Chloride Lvl (test code = Chloride Lvl) 91 95-109 [place] 480482-07-29 12:01:00 Test Item Value Reference Range Interpretation Comments CO2 (test code = CO2) 33 24-32 [place] 480482-07-29 12:01:00 Test Item Value Reference Range Interpretation Comments AGAP (test code = AGAP) 11.7 10.0-20.0 [place] 480482-07-29 12:01:00 Test Item Value Reference Range Interpretation Comments Calcium Lvl (test code = Calcium Lvl) 7.9 8.5-10.5 [place] 480482-07-29 12:01:00 Test Item Value Reference Range Interpretation Comments eGFR (test code = eGFR) 56 [place] 480482-07-29 12:01:00 Test Item Value Reference Range Interpretation Comments Magnesium Lvl (test code = Magnesium 1.7 1.8-2.4 Lvl) [facility]2022-07-29 12:01:00 Test Item Value Reference Range Interpretation Comments Glucose Lvl (test code = Glucose Lvl) 104 70-99 [place] 480482-07-29 12:01:00 Test Item Value Reference Range Interpretation Comments BUN (test code = BUN) 29 7-22 [place] 480482-07-29 12:01:00 Test Item Value Reference Range Interpretation Comments Creatinine Lvl (test code = Creatinine 0.98 0.50-1.40 Lvl) [facility]2022-07-29 12:01:00 Test Item Value Reference Range Interpretation Comments Sodium Lvl (test code = Sodium Lvl) 133 135-145 [facility]2022-07-29 12:01:00 Test Item Value Reference Range Interpretation Comments Potassium Lvl (test code = Potassium 2.7 3.5-5.1 Lvl) [facility]2022-07-29 12:01:00 Test Item Value Reference Range Interpretation Comments Chloride Lvl (test code = Chloride Lvl) 91 95-109 [place] 480482-07-29 12:01:00 Test Item Value Reference Range Interpretation Comments CO2 (test code = CO2) 33 24-32 [facility]2022-07-29 12:01:00 Test Item Value Reference Range Interpretation Comments AGAP (test code = AGAP) 11.7 10.0-20.0 [facility]2022-07-29 12:01:00 Test Item Value Reference Range Interpretation Comments Calcium Lvl (test code = Calcium Lvl) 7.9 8.5-10.5 [facility]2022-07-29 12:01:00 Test Item Value Reference Range Interpretation Comments eGFR (test code = eGFR) 56 [facility]2022-07-29 12:01:00 Test Item Value Reference Range Interpretation Comments Magnesium Lvl (test code = Magnesium 1.7 1.8-2.4 Lvl) [facility]2022-07-29 12:01:00 Test Item Value Reference Range Interpretation Comments Glucose Lvl (test code = Glucose Lvl) 104 70-99 [place] 480482-07-29 12:01:00 Test Item Value Reference Range Interpretation Comments BUN (test code = BUN) 29 - [place] 480482-07-29 12:01:00 Test Item Value Reference Range Interpretation Comments Creatinine Lvl (test code = Creatinine 0.98 0.50-1.40 Lvl) [facility]2022-07-29 12:01:00 Test Item Value Reference Range Interpretation Comments Sodium Lvl (test code = Sodium Lvl) 133 135-145 [place] 480482-07-29 12:01:00 Test Item Value Reference Range Interpretation Comments Potassium Lvl (test code = Potassium 2.7 3.5-5.1 Lvl) [place] 480482-07-29 12:01:00 Test Item Value Reference Range Interpretation Comments Chloride Lvl (test code = Chloride Lvl) 91 95-109 [facility]2022-07-29 12:01:00 Test Item Value Reference Range Interpretation Comments CO2 (test code = CO2) 33 24-32 [facility]2022-07-29 12:01:00 Test Item Value Reference Range Interpretation Comments AGAP (test code = AGAP) 11.7 10.0-20.0 [facility]2022-07-29 12:01:00 Test Item Value Reference Range Interpretation Comments Calcium Lvl (test code = Calcium Lvl) 7.9 8.5-10.5 [facility]2022-07-29 12:01:00 Test Item Value Reference Range Interpretation Comments eGFR (test code = eGFR) 56 [facility]2022-07-29 12:01:00 Test Item Value Reference Range Interpretation Comments Magnesium Lvl (test code = Magnesium 1.7 1.8-2.4 Lvl) [facility]2022-07-29 12:01:00 Test Item Value Reference Range Interpretation Comments Glucose Lvl (test code = Glucose Lvl) 104 70-99 [facility]2022-07-29 12:01:00 Test Item Value Reference Range Interpretation Comments BUN (test code = BUN) 29 7- [place] [address]482-07-29 12:01:00 Test Item Value Reference Range Interpretation Comments Creatinine Lvl (test code = Creatinine 0.98 0.50-1.40 Lvl) [place] 480482-07-29 12:01:00 Test Item Value Reference Range Interpretation Comments Sodium Lvl (test code = Sodium Lvl) 133 135-145 [place] 480482-07-29 12:01:00 Test Item Value Reference Range Interpretation Comments Potassium Lvl (test code = Potassium 2.7 3.5-5.1 Lvl) [place] 480482-07-29 12:01:00 Test Item Value Reference Range Interpretation Comments Chloride Lvl (test code = Chloride Lvl) 91 95-109 [place] 480482-07-29 12:01:00 Test Item Value Reference Range Interpretation Comments CO2 (test code = CO2) 33 24-32 [place] 480482-07-29 12:01:00 Test Item Value Reference Range Interpretation Comments AGAP (test code = AGAP) 11.7 10.0-20.0 [place] 480482-07-29 12:01:00 Test Item Value Reference Range Interpretation Comments Calcium Lvl (test code = Calcium Lvl) 7.9 8.5-10.5 [place] 480482-07-29 12:01:00 Test Item Value Reference Range Interpretation Comments eGFR (test code = eGFR) 56 [place] 480482-07-29 12:01:00 Test Item Value Reference Range Interpretation Comments Magnesium Lvl (test code = Magnesium 1.7 1.8-2.4 Lvl) [facility]2022-07-29 12:01:00 Test Item Value Reference Range Interpretation Comments Glucose Lvl (test code = Glucose Lvl) 104 70-99 [place] 480482-07-29 12:01:00 Test Item Value Reference Range Interpretation Comments BUN (test code = BUN) 29 7-22 [place] 480482-07-29 12:01:00 Test Item Value Reference Range Interpretation Comments Creatinine Lvl (test code = Creatinine 0.98 0.50-1.40 Lvl) [place] 480482-07-29 12:01:00 Test Item Value Reference Range Interpretation Comments Sodium Lvl (test code = Sodium Lvl) 133 135-145 [place] 480482-07-29 12:01:00 Test Item Value Reference Range Interpretation Comments Potassium Lvl (test code = Potassium 2.7 3.5-5.1 Lvl) [place] 480482-07-29 12:01:00 Test Item Value Reference Range Interpretation Comments Chloride Lvl (test code = Chloride Lvl) 91 95-109 [place] 480482-07-29 12:01:00 Test Item Value Reference Range Interpretation Comments CO2 (test code = CO2) 33 24-32 [place] 480482-07-29 12:01:00 Test Item Value Reference Range Interpretation Comments AGAP (test code = AGAP) 11.7 10.0-20.0 [place] 480482-07-29 12:01:00 Test Item Value Reference Range Interpretation Comments Calcium Lvl (test code = Calcium Lvl) 7.9 8.5-10.5 [place] 480482-07-29 12:01:00 Test Item Value Reference Range Interpretation Comments eGFR (test code = eGFR) 56 [place] 480482-07-29 12:01:00 Test Item Value Reference Range Interpretation Comments Magnesium Lvl (test code = Magnesium 1.7 1.8-2.4 Lvl) [place] 480482-07-29 12:01:00 Test Item Value Reference Range Interpretation Comments Glucose Lvl (test code = Glucose Lvl) 104 70-99 [place] 480482-07-29 12:01:00 Test Item Value Reference Range Interpretation Comments BUN (test code = BUN) 29 7-22 [place] 480482-07-29 12:01:00 Test Item Value Reference Range Interpretation Comments Creatinine Lvl (test code = Creatinine 0.98 0.50-1.40 Lvl) [place] 480482-07-29 12:01:00 Test Item Value Reference Range Interpretation Comments Sodium Lvl (test code = Sodium Lvl) 133 135-145 [place] 480482-07-29 12:01:00 Test Item Value Reference Range Interpretation Comments Potassium Lvl (test code = Potassium 2.7 3.5-5.1 Lvl) [place] 480482-07-29 12:01:00 Test Item Value Reference Range Interpretation Comments Chloride Lvl (test code = Chloride Lvl) 91 95-109 [place] 480482-07-29 12:01:00 Test Item Value Reference Range Interpretation Comments CO2 (test code = CO2) 33 24-32 [place] 480482-07-29 12:01:00 Test Item Value Reference Range Interpretation Comments AGAP (test code = AGAP) 11.7 10.0-20.0 [place] 480482-07-29 12:01:00 Test Item Value Reference Range Interpretation Comments Calcium Lvl (test code = Calcium Lvl) 7.9 8.5-10.5 [place] 480482-07-29 12:01:00 Test Item Value Reference Range Interpretation Comments eGFR (test code = eGFR) 56 [place] 480482-07-29 12:01:00 Test Item Value Reference Range Interpretation Comments Magnesium Lvl (test code = Magnesium 1.7 1.8-2.4 Lvl) [facility]2022-07-29 12:01:00 Test Item Value Reference Range Interpretation Comments Glucose Lvl (test code = Glucose Lvl) 104 70-99 [facility]2022-07-29 12:01:00 Test Item Value Reference Range Interpretation Comments BUN (test code = BUN) 29 7-22 [place] 480482-07-29 12:01:00 Test Item Value Reference Range Interpretation Comments Creatinine Lvl (test code = Creatinine 0.98 0.50-1.40 Lvl) [facility]2022-07-29 12:01:00 Test Item Value Reference Range Interpretation Comments Sodium Lvl (test code = Sodium Lvl) 133 135-145 [facility]2022-07-29 12:01:00 Test Item Value Reference Range Interpretation Comments Potassium Lvl (test code = Potassium 2.7 3.5-5.1 Lvl) [place] 480482-07-29 12:01:00 Test Item Value Reference Range Interpretation Comments Chloride Lvl (test code = Chloride Lvl) 91 95-109 [place] 480482-07-29 12:01:00 Test Item Value Reference Range Interpretation Comments CO2 (test code = CO2) 33 24-32 [facility]2022-07-29 12:01:00 Test Item Value Reference Range Interpretation Comments AGAP (test code = AGAP) 11.7 10.0-20.0 [place] 480482-07-29 12:01:00 Test Item Value Reference Range Interpretation Comments Calcium Lvl (test code = Calcium Lvl) 7.9 8.5-10.5 [facility]2022-07-29 12:01:00 Test Item Value Reference Range Interpretation Comments eGFR (test code = eGFR) 56 [place] 480482-07-29 12:01:00 Test Item Value Reference Range Interpretation Comments Magnesium Lvl (test code = Magnesium 1.7 1.8-2.4 Lvl) [facility]2022-07-29 12:01:00 Test Item Value Reference Range Interpretation Comments Glucose Lvl (test code = Glucose Lvl) 104 70-99 [facility]2022-07-29 12:01:00 Test Item Value Reference Range Interpretation Comments BUN (test code = BUN) 29 7-22 [place] 480482-07-29 12:01:00 Test Item Value Reference Range Interpretation Comments Creatinine Lvl (test code = Creatinine 0.98 0.50-1.40 Lvl) [facility]2022-07-29 12:01:00 Test Item Value Reference Range Interpretation Comments Sodium Lvl (test code = Sodium Lvl) 133 135-145 [facility]2022-07-29 12:01:00 Test Item Value Reference Range Interpretation Comments Potassium Lvl (test code = Potassium 2.7 3.5-5.1 Lvl) [facility]2022-07-29 12:01:00 Test Item Value Reference Range Interpretation Comments Chloride Lvl (test code = Chloride Lvl) 91 95-109 [facility]2022-07-29 12:01:00 Test Item Value Reference Range Interpretation Comments CO2 (test code = CO2) 33 24-32 [facility]2022-07-29 12:01:00 Test Item Value Reference Range Interpretation Comments AGAP (test code = AGAP) 11.7 10.0-20.0 [facility]2022-07-29 12:01:00 Test Item Value Reference Range Interpretation Comments Calcium Lvl (test code = Calcium Lvl) 7.9 8.5-10.5 [place] 480482-07-29 12:01:00 Test Item Value Reference Range Interpretation Comments eGFR (test code = eGFR) 56 [place] 480482-07-29 12:01:00 Test Item Value Reference Range Interpretation Comments Magnesium Lvl (test code = Magnesium 1.7 1.8-2.4 Lvl) [place] 480482-07-29 12:01:00 Test Item Value Reference Range Interpretation Comments Glucose Lvl (test code = Glucose Lvl) 104 70-99 [place] 480482-07-29 12:01:00 Test Item Value Reference Range Interpretation Comments BUN (test code = BUN) 29 7-22 [place] 480482-07-29 12:01:00 Test Item Value Reference Range Interpretation Comments Creatinine Lvl (test code = Creatinine 0.98 0.50-1.40 Lvl) [place] 480482-07-29 12:01:00 Test Item Value Reference Range Interpretation Comments Sodium Lvl (test code = Sodium Lvl) 133 135-145 [place] 480482-07-29 12:01:00 Test Item Value Reference Range Interpretation Comments Potassium Lvl (test code = Potassium 2.7 3.5-5.1 Lvl) [place] 480482-07-29 12:01:00 Test Item Value Reference Range Interpretation Comments Chloride Lvl (test code = Chloride Lvl) 91 95-109 [place] 480482-07-29 12:01:00 Test Item Value Reference Range Interpretation Comments CO2 (test code = CO2) 33 24-32 [place] 480482-07-29 12:01:00 Test Item Value Reference Range Interpretation Comments AGAP (test code = AGAP) 11.7 10.0-20.0 [place] 480482-07-29 12:01:00 Test Item Value Reference Range Interpretation Comments Calcium Lvl (test code = Calcium Lvl) 7.9 8.5-10.5 [place] 480482-07-29 12:01:00 Test Item Value Reference Range Interpretation Comments eGFR (test code = eGFR) 56 [place] 480482-07-29 12:01:00 Test Item Value Reference Range Interpretation Comments Magnesium Lvl (test code = Magnesium 1.7 1.8-2.4 Lvl) [place] 480482-07-29 12:01:00 Test Item Value Reference Range Interpretation Comments Glucose Lvl (test code = Glucose Lvl) 104 70-99 [facility]2022-07-29 12:01:00 Test Item Value Reference Range Interpretation Comments BUN (test code = BUN) 06-10 [facility]2022-07-29 12:01:00 Test Item Value Reference Range Interpretation Comments Creatinine Lvl (test code = Creatinine 0.98 0.50-1.40 Lvl) [facility]2022-07-29 12:01:00 Test Item Value Reference Range Interpretation Comments Sodium Lvl (test code = Sodium Lvl) 133 135-145 [place] 480482-07-29 12:01:00 Test Item Value Reference Range Interpretation Comments Potassium Lvl (test code = Potassium 2.7 3.5-5.1 Lvl) [facility]2022-07-29 12:01:00 Test Item Value Reference Range Interpretation Comments Chloride Lvl (test code = Chloride Lvl) 91 95-109 [facility]2022-07-29 12:01:00 Test Item Value Reference Range Interpretation Comments CO2 (test code = CO2) 33 24-32 [facility]2022-07-29 12:01:00 Test Item Value Reference Range Interpretation Comments AGAP (test code = AGAP) 11.7 10.0-20.0 [facility]2022-07-29 12:01:00 Test Item Value Reference Range Interpretation Comments Calcium Lvl (test code = Calcium Lvl) 7.9 8.5-10.5 [facility]2022-07-29 12:01:00 Test Item Value Reference Range Interpretation Comments eGFR (test code = eGFR) 56 [facility]2022-07-29 12:01:00 Test Item Value Reference Range Interpretation Comments Magnesium Lvl (test code = Magnesium 1.7 1.8-2.4 Lvl) [facility]2022-07-29 12:01:00 Test Item Value Reference Range Interpretation Comments Glucose Lvl (test code = Glucose Lvl) 104 70-99 [place] 480482-07-29 12:01:00 Test Item Value Reference Range Interpretation Comments BUN (test code = BUN) 29 7- [facility]2022-07-29 12:01:00 Test Item Value Reference Range Interpretation Comments Creatinine Lvl (test code = Creatinine 0.98 0.50-1.40 Lvl) [place] 480482-07-29 12:01:00 Test Item Value Reference Range Interpretation Comments Sodium Lvl (test code = Sodium Lvl) 133 135-145 [place] 480482-07-29 12:01:00 Test Item Value Reference Range Interpretation Comments Potassium Lvl (test code = Potassium 2.7 3.5-5.1 Lvl) [place] 480482-07-29 12:01:00 Test Item Value Reference Range Interpretation Comments Chloride Lvl (test code = Chloride Lvl) 91 95-109 [place] 480482-07-29 12:01:00 Test Item Value Reference Range Interpretation Comments CO2 (test code = CO2) 33 24-32 [facility]2022-07-29 12:01:00 Test Item Value Reference Range Interpretation Comments AGAP (test code = AGAP) 11.7 10.0-20.0 [place] 480482-07-29 12:01:00 Test Item Value Reference Range Interpretation Comments Calcium Lvl (test code = Calcium Lvl) 7.9 8.5-10.5 [facility]2022-07-29 12:01:00 Test Item Value Reference Range Interpretation Comments eGFR (test code = eGFR) 56 [facility]2022-07-29 12:01:00 Test Item Value Reference Range Interpretation Comments Magnesium Lvl (test code = Magnesium 1.7 1.8-2.4 Lvl) [facility]2022-07-29 12:01:00 Test Item Value Reference Range Interpretation Comments Glucose Lvl (test code = Glucose Lvl) 104 70-99 [place] 480482-07-29 12:01:00 Test Item Value Reference Range Interpretation Comments BUN (test code = BUN) 29 7-22 [place] 480482-07-29 12:01:00 Test Item Value Reference Range Interpretation Comments Creatinine Lvl (test code = Creatinine 0.98 0.50-1.40 Lvl) [facility]2022-07-29 12:01:00 Test Item Value Reference Range Interpretation Comments Sodium Lvl (test code = Sodium Lvl) 133 135-145 [place] 480482-07-29 12:01:00 Test Item Value Reference Range Interpretation Comments Potassium Lvl (test code = Potassium 2.7 3.5-5.1 Lvl) [place] 480482-07-29 12:01:00 Test Item Value Reference Range Interpretation Comments Chloride Lvl (test code = Chloride Lvl) 91 95-109 [place] 480482-07-29 12:01:00 Test Item Value Reference Range Interpretation Comments CO2 (test code = CO2) 33 24-32 [place] 480482-07-29 12:01:00 Test Item Value Reference Range Interpretation Comments AGAP (test code = AGAP) 11.7 10.0-20.0 [place] 480482-07-29 12:01:00 Test Item Value Reference Range Interpretation Comments Calcium Lvl (test code = Calcium Lvl) 7.9 8.5-10.5 [place] 480482-07-29 12:01:00 Test Item Value Reference Range Interpretation Comments eGFR (test code = eGFR) 56 [place] 480482-07-29 12:01:00 Test Item Value Reference Range Interpretation Comments Magnesium Lvl (test code = Magnesium 1.7 1.8-2.4 Lvl) [place] 480482-07-29 12:01:00 Test Item Value Reference Range Interpretation Comments Glucose Lvl (test code = Glucose Lvl) 104 70-99 [place] 480482-07-29 12:01:00 Test Item Value Reference Range Interpretation Comments BUN (test code = BUN) 29 7-22 [place] 480482-07-29 12:01:00 Test Item Value Reference Range Interpretation Comments Creatinine Lvl (test code = Creatinine 0.98 0.50-1.40 Lvl) [place] 480482-07-29 12:01:00 Test Item Value Reference Range Interpretation Comments Sodium Lvl (test code = Sodium Lvl) 133 135-145 [place] 480482-07-29 12:01:00 Test Item Value Reference Range Interpretation Comments Potassium Lvl (test code = Potassium 2.7 3.5-5.1 Lvl) [place] 480482-07-29 12:01:00 Test Item Value Reference Range Interpretation Comments Chloride Lvl (test code = Chloride Lvl) 91 95-109 [place] 480482-07-29 12:01:00 Test Item Value Reference Range Interpretation Comments CO2 (test code = CO2) 33 24-32 [place] 480482-07-29 12:01:00 Test Item Value Reference Range Interpretation Comments AGAP (test code = AGAP) 11.7 10.0-20.0 [place] 480482-07-29 12:01:00 Test Item Value Reference Range Interpretation Comments Calcium Lvl (test code = Calcium Lvl) 7.9 8.5-10.5 [place] 480482-07-29 12:01:00 Test Item Value Reference Range Interpretation Comments eGFR (test code = eGFR) 56 [place] 480482-07-29 12:01:00 Test Item Value Reference Range Interpretation Comments Magnesium Lvl (test code = Magnesium 1.7 1.8-2.4 Lvl) [place] 480482-07-29 12:01:00 Test Item Value Reference Range Interpretation Comments Glucose Lvl (test code = Glucose Lvl) 104 70-99 [facility]2022-07-29 12:01:00 Test Item Value Reference Range Interpretation Comments BUN (test code = BUN) 29 7-22 [place] 480482-07-29 12:01:00 Test Item Value Reference Range Interpretation Comments Creatinine Lvl (test code = Creatinine 0.98 0.50-1.40 Lvl) [facility]2022-07-29 12:01:00 Test Item Value Reference Range Interpretation Comments Sodium Lvl (test code = Sodium Lvl) 133 135-145 [place] 480482-07-29 12:01:00 Test Item Value Reference Range Interpretation Comments Potassium Lvl (test code = Potassium 2.7 3.5-5.1 Lvl) [place] 480482-07-29 12:01:00 Test Item Value Reference Range Interpretation Comments Chloride Lvl (test code = Chloride Lvl) 91 95-109 [place] 480482-07-29 12:01:00 Test Item Value Reference Range Interpretation Comments CO2 (test code = CO2) 33 24-32 [place] 480482-07-29 12:01:00 Test Item Value Reference Range Interpretation Comments AGAP (test code = AGAP) 11.7 10.0-20.0 [place] 480482-07-29 12:01:00 Test Item Value Reference Range Interpretation Comments Calcium Lvl (test code = Calcium Lvl) 7.9 8.5-10.5 [facility]2022-07-29 12:01:00 Test Item Value Reference Range Interpretation Comments eGFR (test code = eGFR) 56 [place] 480482-07-29 12:01:00 Test Item Value Reference Range Interpretation Comments Magnesium Lvl (test code = Magnesium 1.7 1.8-2.4 Lvl) [place] 480482-07-29 12:01:00 Test Item Value Reference Range Interpretation Comments Glucose Lvl (test code = Glucose Lvl) 104 70-99 [place] 480482-07-29 12:01:00 Test Item Value Reference Range Interpretation Comments BUN (test code = BUN) 29 7-22 [place] 480482-07-29 12:01:00 Test Item Value Reference Range Interpretation Comments Creatinine Lvl (test code = Creatinine 0.98 0.50-1.40 Lvl) [place] 480482-07-29 12:01:00 Test Item Value Reference Range Interpretation Comments Sodium Lvl (test code = Sodium Lvl) 133 135-145 [place] 480482-07-29 12:01:00 Test Item Value Reference Range Interpretation Comments Potassium Lvl (test code = Potassium 2.7 3.5-5.1 Lvl) [facility]2022-07-29 12:01:00 Test Item Value Reference Range Interpretation Comments Chloride Lvl (test code = Chloride Lvl) 91 95-109 [place] 480482-07-29 12:01:00 Test Item Value Reference Range Interpretation Comments CO2 (test code = CO2) 33 24-32 [place] 480482-07-29 12:01:00 Test Item Value Reference Range Interpretation Comments AGAP (test code = AGAP) 11.7 10.0-20.0 [place] 480482-07-29 12:01:00 Test Item Value Reference Range Interpretation Comments Calcium Lvl (test code = Calcium Lvl) 7.9 8.5-10.5 [place] 480482-07-29 12:01:00 Test Item Value Reference Range Interpretation Comments eGFR (test code = eGFR) 56 [facility]2022-07-29 12:01:00 Test Item Value Reference Range Interpretation Comments Magnesium Lvl (test code = Magnesium 1.7 1.8-2.4 Lvl) [place] 480482-07-29 12:01:00 Test Item Value Reference Range Interpretation Comments Glucose Lvl (test code = Glucose Lvl) 104 70-99 [place] 480482-07-29 12:01:00 Test Item Value Reference Range Interpretation Comments BUN (test code = BUN) 29 7-22 [place] 480482-07-29 12:01:00 Test Item Value Reference Range Interpretation Comments Creatinine Lvl (test code = Creatinine 0.98 0.50-1.40 Lvl) [facility]2022-07-29 12:01:00 Test Item Value Reference Range Interpretation Comments Sodium Lvl (test code = Sodium Lvl) 133 135-145 [place] 480482-07-29 12:01:00 Test Item Value Reference Range Interpretation Comments Potassium Lvl (test code = Potassium 2.7 3.5-5.1 Lvl) [facility]2022-07-29 12:01:00 Test Item Value Reference Range Interpretation Comments Chloride Lvl (test code = Chloride Lvl) 91 95-109 [facility]2022-07-29 12:01:00 Test Item Value Reference Range Interpretation Comments CO2 (test code = CO2) 33 24-32 [facility]2022-07-29 12:01:00 Test Item Value Reference Range Interpretation Comments AGAP (test code = AGAP) 11.7 10.0-20.0 [place] 480482-07-29 12:01:00 Test Item Value Reference Range Interpretation Comments Calcium Lvl (test code = Calcium Lvl) 7.9 8.5-10.5 [place] 480482-07-29 12:01:00 Test Item Value Reference Range Interpretation Comments eGFR (test code = eGFR) 56 [place] 480482-07-29 12:01:00 Test Item Value Reference Range Interpretation Comments Magnesium Lvl (test code = Magnesium 1.7 1.8-2.4 Lvl) [place] 480482-07-29 12:01:00 Test Item Value Reference Range Interpretation Comments Glucose Lvl (test code = Glucose Lvl) 104 70-99 [facility]2022-07-29 12:01:00 Test Item Value Reference Range Interpretation Comments BUN (test code = BUN) 06-10 [facility]2022-07-29 12:01:00 Test Item Value Reference Range Interpretation Comments Creatinine Lvl (test code = Creatinine 0.98 0.50-1.40 Lvl) [facility]2022-07-29 12:01:00 Test Item Value Reference Range Interpretation Comments Sodium Lvl (test code = Sodium Lvl) 133 135-145 [facility]2022-07-29 12:01:00 Test Item Value Reference Range Interpretation Comments Potassium Lvl (test code = Potassium 2.7 3.5-5.1 Lvl) [facility]2022-07-29 12:01:00 Test Item Value Reference Range Interpretation Comments Chloride Lvl (test code = Chloride Lvl) 91 95-109 [facility]2022-07-29 12:01:00 Test Item Value Reference Range Interpretation Comments CO2 (test code = CO2) 33 24-32 [facility]2022-07-29 12:01:00 Test Item Value Reference Range Interpretation Comments AGAP (test code = AGAP) 11.7 10.0-20.0 [facility]2022-07-29 12:01:00 Test Item Value Reference Range Interpretation Comments Calcium Lvl (test code = Calcium Lvl) 7.9 8.5-10.5 [facility]2022-07-29 12:01:00 Test Item Value Reference Range Interpretation Comments eGFR (test code = eGFR) 56 [facility]2022-07-29 12:01:00 Test Item Value Reference Range Interpretation Comments Magnesium Lvl (test code = Magnesium 1.7 1.8-2.4 Lvl) [facility]2022-07-29 12:01:00 Test Item Value Reference Range Interpretation Comments Glucose Lvl (test code = Glucose Lvl) 104 70-99 [facility]2022-07-29 12:01:00 Test Item Value Reference Range Interpretation Comments BUN (test code = BUN) 06-10 [place] 480482-07-29 12:01:00 Test Item Value Reference Range Interpretation Comments Creatinine Lvl (test code = Creatinine 0.98 0.50-1.40 Lvl) [place] 480482-07-29 12:01:00 Test Item Value Reference Range Interpretation Comments Sodium Lvl (test code = Sodium Lvl) 133 135-145 [place] 480482-07-29 12:01:00 Test Item Value Reference Range Interpretation Comments Potassium Lvl (test code = Potassium 2.7 3.5-5.1 Lvl) [place] 480482-07-29 12:01:00 Test Item Value Reference Range Interpretation Comments Chloride Lvl (test code = Chloride Lvl) 91 95-109 [place] 480482-07-29 12:01:00 Test Item Value Reference Range Interpretation Comments CO2 (test code = CO2) 33 24-32 [place] 480482-07-29 12:01:00 Test Item Value Reference Range Interpretation Comments AGAP (test code = AGAP) 11.7 10.0-20.0 [place] 480482-07-29 12:01:00 Test Item Value Reference Range Interpretation Comments Calcium Lvl (test code = Calcium Lvl) 7.9 8.5-10.5 [place] 480482-07-29 12:01:00 Test Item Value Reference Range Interpretation Comments eGFR (test code = eGFR) 56 [place] 480482-07-29 12:01:00 Test Item Value Reference Range Interpretation Comments Magnesium Lvl (test code = Magnesium 1.7 1.8-2.4 Lvl) [place] 480482-07-29 12:01:00 Test Item Value Reference Range Interpretation Comments Glucose Lvl (test code = Glucose Lvl) 104 70-99 [place] 480482-07-29 12:01:00 Test Item Value Reference Range Interpretation Comments BUN (test code = BUN) 29 7-22 [place] 480482-07-29 12:01:00 Test Item Value Reference Range Interpretation Comments Creatinine Lvl (test code = Creatinine 0.98 0.50-1.40 Lvl) [place] 480482-07-29 12:01:00 Test Item Value Reference Range Interpretation Comments Sodium Lvl (test code = Sodium Lvl) 133 135-145 [place] 480482-07-29 12:01:00 Test Item Value Reference Range Interpretation Comments Potassium Lvl (test code = Potassium 2.7 3.5-5.1 Lvl) [place] 480482-07-29 12:01:00 Test Item Value Reference Range Interpretation Comments Chloride Lvl (test code = Chloride Lvl) 91 95-109 [place] 480482-07-29 12:01:00 Test Item Value Reference Range Interpretation Comments CO2 (test code = CO2) 33 24-32 [place] 480482-07-29 12:01:00 Test Item Value Reference Range Interpretation Comments AGAP (test code = AGAP) 11.7 10.0-20.0 [place] 480482-07-29 12:01:00 Test Item Value Reference Range Interpretation Comments Calcium Lvl (test code = Calcium Lvl) 7.9 8.5-10.5 [place] 480482-07-29 12:01:00 Test Item Value Reference Range Interpretation Comments eGFR (test code = eGFR) 56 [place] 480482-07-29 12:01:00 Test Item Value Reference Range Interpretation Comments Magnesium Lvl (test code = Magnesium 1.7 1.8-2.4 Lvl) [facility]2022-07-29 12:01:00 Test Item Value Reference Range Interpretation Comments Glucose Lvl (test code = Glucose Lvl) 104 70-99 [place] 480482-07-29 12:01:00 Test Item Value Reference Range Interpretation Comments BUN (test code = BUN) 29 7-22 [place] 480482-07-29 12:01:00 Test Item Value Reference Range Interpretation Comments Creatinine Lvl (test code = Creatinine 0.98 0.50-1.40 Lvl) [place] 480482-07-29 12:01:00 Test Item Value Reference Range Interpretation Comments Sodium Lvl (test code = Sodium Lvl) 133 135-145 [place] 480482-07-29 12:01:00 Test Item Value Reference Range Interpretation Comments Potassium Lvl (test code = Potassium 2.7 3.5-5.1 Lvl) [place] 480482-07-29 12:01:00 Test Item Value Reference Range Interpretation Comments Chloride Lvl (test code = Chloride Lvl) 91 95-109 [place] 480482-07-29 12:01:00 Test Item Value Reference Range Interpretation Comments CO2 (test code = CO2) 33 24-32 [facility]2022-07-29 12:01:00 Test Item Value Reference Range Interpretation Comments AGAP (test code = AGAP) 11.7 10.0-20.0 [facility]2022-07-29 12:01:00 Test Item Value Reference Range Interpretation Comments Calcium Lvl (test code = Calcium Lvl) 7.9 8.5-10.5 [place] 480482-07-29 12:01:00 Test Item Value Reference Range Interpretation Comments eGFR (test code = eGFR) 56 [facility]2022-07-29 12:01:00 Test Item Value Reference Range Interpretation Comments Magnesium Lvl (test code = Magnesium 1.7 1.8-2.4 Lvl) [facility]2022-07-29 12:01:00 Test Item Value Reference Range Interpretation Comments Glucose Lvl (test code = Glucose Lvl) 104 70-99 [facility]2022-07-29 12:01:00 Test Item Value Reference Range Interpretation Comments BUN (test code = BUN) 29 7-22 [facility]2022-07-29 12:01:00 Test Item Value Reference Range Interpretation Comments Creatinine Lvl (test code = Creatinine 0.98 0.50-1.40 Lvl) [facility]2022-07-29 12:01:00 Test Item Value Reference Range Interpretation Comments Sodium Lvl (test code = Sodium Lvl) 133 135-145 [place] 480482-07-29 12:01:00 Test Item Value Reference Range Interpretation Comments Potassium Lvl (test code = Potassium 2.7 3.5-5.1 Lvl) [facility]2022-07-29 12:01:00 Test Item Value Reference Range Interpretation Comments Chloride Lvl (test code = Chloride Lvl) 91 95-109 [facility]2022-07-29 12:01:00 Test Item Value Reference Range Interpretation Comments CO2 (test code = CO2) 33 24-32 [facility]2022-07-29 12:01:00 Test Item Value Reference Range Interpretation Comments AGAP (test code = AGAP) 11.7 10.0-20.0 [place] 480482-07-29 12:01:00 Test Item Value Reference Range Interpretation Comments Calcium Lvl (test code = Calcium Lvl) 7.9 8.5-10.5 [place] 480482-07-29 12:01:00 Test Item Value Reference Range Interpretation Comments eGFR (test code = eGFR) 56 [place] 480482-07-29 12:01:00 Test Item Value Reference Range Interpretation Comments Magnesium Lvl (test code = Magnesium 1.7 1.8-2.4 Lvl) [place] 480482-07-29 12:01:00 Test Item Value Reference Range Interpretation Comments Glucose Lvl (test code = Glucose Lvl) 104 70-99 [place] 480482-07-29 12:01:00 Test Item Value Reference Range Interpretation Comments BUN (test code = BUN) 29 7-22 [place] 480482-07-29 12:01:00 Test Item Value Reference Range Interpretation Comments Creatinine Lvl (test code = Creatinine 0.98 0.50-1.40 Lvl) [place] 480482-07-29 12:01:00 Test Item Value Reference Range Interpretation Comments Sodium Lvl (test code = Sodium Lvl) 133 135-145 [facility]2022-07-29 12:01:00 Test Item Value Reference Range Interpretation Comments Potassium Lvl (test code = Potassium 2.7 3.5-5.1 Lvl) [place] 480482-07-29 12:01:00 Test Item Value Reference Range Interpretation Comments Chloride Lvl (test code = Chloride Lvl) 91 95-109 [place] 480482-07-29 12:01:00 Test Item Value Reference Range Interpretation Comments CO2 (test code = CO2) 33 24-32 [facility]2022-07-29 12:01:00 Test Item Value Reference Range Interpretation Comments AGAP (test code = AGAP) 11.7 10.0-20.0 [place] 480482-07-29 12:01:00 Test Item Value Reference Range Interpretation Comments Calcium Lvl (test code = Calcium Lvl) 7.9 8.5-10.5 [place] 480482-07-29 12:01:00 Test Item Value Reference Range Interpretation Comments eGFR (test code = eGFR) 56 [place] 480482-07-29 12:01:00 Test Item Value Reference Range Interpretation Comments Magnesium Lvl (test code = Magnesium 1.7 1.8-2.4 Lvl) [place] 480482-07-29 12:01:00 Test Item Value Reference Range Interpretation Comments Glucose Lvl (test code = Glucose Lvl) 104 70-99 [place] 480482-07-29 12:01:00 Test Item Value Reference Range Interpretation Comments BUN (test code = BUN) 29 7-22 [place] 480482-07-29 12:01:00 Test Item Value Reference Range Interpretation Comments Creatinine Lvl (test code = Creatinine 0.98 0.50-1.40 Lvl) [place] 480482-07-29 12:01:00 Test Item Value Reference Range Interpretation Comments Sodium Lvl (test code = Sodium Lvl) 133 135-145 [place] 480482-07-29 12:01:00 Test Item Value Reference Range Interpretation Comments Potassium Lvl (test code = Potassium 2.7 3.5-5.1 Lvl) [place] 480482-07-29 12:01:00 Test Item Value Reference Range Interpretation Comments Chloride Lvl (test code = Chloride Lvl) 91 95-109 [place] 480482-07-29 12:01:00 Test Item Value Reference Range Interpretation Comments CO2 (test code = CO2) 33 24-32 [place] 480482-07-29 12:01:00 Test Item Value Reference Range Interpretation Comments AGAP (test code = AGAP) 11.7 10.0-20.0 [place] 480482-07-29 12:01:00 Test Item Value Reference Range Interpretation Comments Calcium Lvl (test code = Calcium Lvl) 7.9 8.5-10.5 [place] 480482-07-29 12:01:00 Test Item Value Reference Range Interpretation Comments eGFR (test code = eGFR) 56 [place] 480482-07-29 12:01:00 Test Item Value Reference Range Interpretation Comments Magnesium Lvl (test code = Magnesium 1.7 1.8-2.4 Lvl) [facility]2022-07-29 12:01:00 Test Item Value Reference Range Interpretation Comments Glucose Lvl (test code = Glucose Lvl) 104 70-99 [place] 480482-07-29 12:01:00 Test Item Value Reference Range Interpretation Comments BUN (test code = BUN) 29 7-22 [place] 480482-07-29 12:01:00 Test Item Value Reference Range Interpretation Comments Creatinine Lvl (test code = Creatinine 0.98 0.50-1.40 Lvl) [place] 480482-07-29 12:01:00 Test Item Value Reference Range Interpretation Comments Sodium Lvl (test code = Sodium Lvl) 133 135-145 [place] 480482-07-29 12:01:00 Test Item Value Reference Range Interpretation Comments Potassium Lvl (test code = Potassium 2.7 3.5-5.1 Lvl) [place] 480482-07-29 12:01:00 Test Item Value Reference Range Interpretation Comments Chloride Lvl (test code = Chloride Lvl) 91 95-109 [place] 480482-07-29 12:01:00 Test Item Value Reference Range Interpretation Comments CO2 (test code = CO2) 33 24-32 [facility]2022-07-29 12:01:00 Test Item Value Reference Range Interpretation Comments AGAP (test code = AGAP) 11.7 10.0-20.0 [facility]2022-07-29 12:01:00 Test Item Value Reference Range Interpretation Comments Calcium Lvl (test code = Calcium Lvl) 7.9 8.5-10.5 [facility]2022-07-29 12:01:00 Test Item Value Reference Range Interpretation Comments eGFR (test code = eGFR) 56 [place] 480482-07-29 12:01:00 Test Item Value Reference Range Interpretation Comments Magnesium Lvl (test code = Magnesium 1.7 1.8-2.4 Lvl) [facility]2022-07-29 12:01:00 Test Item Value Reference Range Interpretation Comments Glucose Lvl (test code = Glucose Lvl) 104 70-99 [place] 480482-07-29 12:01:00 Test Item Value Reference Range Interpretation Comments BUN (test code = BUN) 29 06-10 [facility]2022-07-29 12:01:00 Test Item Value Reference Range Interpretation Comments Creatinine Lvl (test code = Creatinine 0.98 0.50-1.40 Lvl) [facility]2022-07-29 12:01:00 Test Item Value Reference Range Interpretation Comments Sodium Lvl (test code = Sodium Lvl) 133 135-145 [place] 480482-07-29 12:01:00 Test Item Value Reference Range Interpretation Comments Potassium Lvl (test code = Potassium 2.7 3.5-5.1 Lvl) [facility]2022-07-29 12:01:00 Test Item Value Reference Range Interpretation Comments Chloride Lvl (test code = Chloride Lvl) 91 95-109 [facility]2022-07-29 12:01:00 Test Item Value Reference Range Interpretation Comments CO2 (test code = CO2) 33 24-32 [place] 480482-07-29 12:01:00 Test Item Value Reference Range Interpretation Comments AGAP (test code = AGAP) 11.7 10.0-20.0 [facility]2022-07-29 12:01:00 Test Item Value Reference Range Interpretation Comments Calcium Lvl (test code = Calcium Lvl) 7.9 8.5-10.5 [facility]2022-07-29 12:01:00 Test Item Value Reference Range Interpretation Comments eGFR (test code = eGFR) 56 [facility]2022-07-29 12:01:00 Test Item Value Reference Range Interpretation Comments Magnesium Lvl (test code = Magnesium 1.7 1.8-2.4 Lvl) [facility]2022-07-29 12:01:00 Test Item Value Reference Range Interpretation Comments Glucose Lvl (test code = Glucose Lvl) 104 70-99 [facility]2022-07-29 12:01:00 Test Item Value Reference Range Interpretation Comments BUN (test code = BUN) 29 06-10 [place] 480482-07-29 12:01:00 Test Item Value Reference Range Interpretation Comments Creatinine Lvl (test code = Creatinine 0.98 0.50-1.40 Lvl) [facility]2022-07-29 12:01:00 Test Item Value Reference Range Interpretation Comments Sodium Lvl (test code = Sodium Lvl) 133 135-145 [place] 480482-07-29 12:01:00 Test Item Value Reference Range Interpretation Comments Potassium Lvl (test code = Potassium 2.7 3.5-5.1 Lvl) [place] 480482-07-29 12:01:00 Test Item Value Reference Range Interpretation Comments Chloride Lvl (test code = Chloride Lvl) 91 95-109 [facility]2022-07-29 12:01:00 Test Item Value Reference Range Interpretation Comments CO2 (test code = CO2) 33 24-32 [facility]2022-07-29 12:01:00 Test Item Value Reference Range Interpretation Comments AGAP (test code = AGAP) 11.7 10.0-20.0 [facility]2022-07-29 12:01:00 Test Item Value Reference Range Interpretation Comments Calcium Lvl (test code = Calcium Lvl) 7.9 8.5-10.5 [facility]2022-07-29 12:01:00 Test Item Value Reference Range Interpretation Comments eGFR (test code = eGFR) 56 [facility]2022-07-29 12:01:00 Test Item Value Reference Range Interpretation Comments Magnesium Lvl (test code = Magnesium 1.7 1.8-2.4 Lvl) [facility]2022-07-29 12:01:00 Test Item Value Reference Range Interpretation Comments Glucose Lvl (test code = Glucose Lvl) 104 70-99 [facility]2022-07-29 12:01:00 Test Item Value Reference Range Interpretation Comments BUN (test code = BUN) 29 7-22 [place] 480482-07-29 12:01:00 Test Item Value Reference Range Interpretation Comments Creatinine Lvl (test code = Creatinine 0.98 0.50-1.40 Lvl) [facility]2022-07-29 12:01:00 Test Item Value Reference Range Interpretation Comments Sodium Lvl (test code = Sodium Lvl) 133 135-145 [facility]2022-07-29 12:01:00 Test Item Value Reference Range Interpretation Comments Potassium Lvl (test code = Potassium 2.7 3.5-5.1 Lvl) [place] 480482-07-29 12:01:00 Test Item Value Reference Range Interpretation Comments Chloride Lvl (test code = Chloride Lvl) 91 95-109 [place] 480482-07-29 12:01:00 Test Item Value Reference Range Interpretation Comments CO2 (test code = CO2) 33 -32 [place] 480482-07-29 12:01:00 Test Item Value Reference Range Interpretation Comments AGAP (test code = AGAP) 11.7 10.0-20.0 [place] 480482-07-29 12:01:00 Test Item Value Reference Range Interpretation Comments Calcium Lvl (test code = Calcium Lvl) 7.9 8.5-10.5 [place] 480482-07-29 12:01:00 Test Item Value Reference Range Interpretation Comments eGFR (test code = eGFR) 56 [place] 480482-07-29 12:01:00 Test Item Value Reference Range Interpretation Comments Magnesium Lvl (test code = Magnesium 1.7 1.8-2.4 Lvl) [facility]2022-07-29 12:01:00 Test Item Value Reference Range Interpretation Comments Glucose Lvl (test code = Glucose Lvl) 104 70-99 [place] 480482-07-29 12:01:00 Test Item Value Reference Range Interpretation Comments BUN (test code = BUN) 29 7-22 [place] 480482-07-29 12:01:00 Test Item Value Reference Range Interpretation Comments Creatinine Lvl (test code = Creatinine 0.98 0.50-1.40 Lvl) [place] 480482-07-29 12:01:00 Test Item Value Reference Range Interpretation Comments Sodium Lvl (test code = Sodium Lvl) 133 135-145 [place] 480482-07-29 12:01:00 Test Item Value Reference Range Interpretation Comments Potassium Lvl (test code = Potassium 2.7 3.5-5.1 Lvl) [facility]2022-07-29 12:01:00 Test Item Value Reference Range Interpretation Comments Chloride Lvl (test code = Chloride Lvl) 91 95-109 [place] 480482-07-29 12:01:00 Test Item Value Reference Range Interpretation Comments CO2 (test code = CO2) 33 24-32 [place] 480482-07-29 12:01:00 Test Item Value Reference Range Interpretation Comments AGAP (test code = AGAP) 11.7 10.0-20.0 [place] 480482-07-29 12:01:00 Test Item Value Reference Range Interpretation Comments Calcium Lvl (test code = Calcium Lvl) 7.9 8.5-10.5 [place] 480482-07-29 12:01:00 Test Item Value Reference Range Interpretation Comments eGFR (test code = eGFR) 56 [place] 480482-07-29 12:01:00 Test Item Value Reference Range Interpretation Comments Magnesium Lvl (test code = Magnesium 1.7 1.8-2.4 Lvl) [place] 480482-07-29 12:01:00 Test Item Value Reference Range Interpretation Comments Glucose Lvl (test code = Glucose Lvl) 104 70-99 [place] 480482-07-29 12:01:00 Test Item Value Reference Range Interpretation Comments BUN (test code = BUN) 29 7-22 [place] 480482-07-29 12:01:00 Test Item Value Reference Range Interpretation Comments Creatinine Lvl (test code = Creatinine 0.98 0.50-1.40 Lvl) [facility]2022-07-29 12:01:00 Test Item Value Reference Range Interpretation Comments Sodium Lvl (test code = Sodium Lvl) 133 135-145 [place] 480482-07-29 12:01:00 Test Item Value Reference Range Interpretation Comments Potassium Lvl (test code = Potassium 2.7 3.5-5.1 Lvl) [facility]2022-07-29 12:01:00 Test Item Value Reference Range Interpretation Comments Chloride Lvl (test code = Chloride Lvl) 91 95-109 [place] 480482-07-29 12:01:00 Test Item Value Reference Range Interpretation Comments CO2 (test code = CO2) 33 -32 [facility]2022-07-29 12:01:00 Test Item Value Reference Range Interpretation Comments AGAP (test code = AGAP) 11.7 10.0-20.0 [place] 480482-07-29 12:01:00 Test Item Value Reference Range Interpretation Comments Calcium Lvl (test code = Calcium Lvl) 7.9 8.5-10.5 [place] 480482-07-29 12:01:00 Test Item Value Reference Range Interpretation Comments eGFR (test code = eGFR) 56 [facility]2022-07-29 12:01:00 Test Item Value Reference Range Interpretation Comments Magnesium Lvl (test code = Magnesium 1.7 1.8-2.4 Lvl) [place] 480482-07-29 12:01:00 Test Item Value Reference Range Interpretation Comments Glucose Lvl (test code = Glucose Lvl) 104 70-99 [place] 480482-07-29 12:01:00 Test Item Value Reference Range Interpretation Comments BUN (test code = BUN) 29 7-22 [place] 480482-07-29 12:01:00 Test Item Value Reference Range Interpretation Comments Creatinine Lvl (test code = Creatinine 0.98 0.50-1.40 Lvl) [place] 480482-07-29 12:01:00 Test Item Value Reference Range Interpretation Comments Sodium Lvl (test code = Sodium Lvl) 133 135-145 [place] 480482-07-29 12:01:00 Test Item Value Reference Range Interpretation Comments Potassium Lvl (test code = Potassium 2.7 3.5-5.1 Lvl) [facility]2022-07-29 12:01:00 Test Item Value Reference Range Interpretation Comments Chloride Lvl (test code = Chloride Lvl) 91 95-109 [place] 480482-07-29 12:01:00 Test Item Value Reference Range Interpretation Comments CO2 (test code = CO2) 33 24-32 [place] 480482-07-29 12:01:00 Test Item Value Reference Range Interpretation Comments AGAP (test code = AGAP) 11.7 10.0-20.0 [place] 480482-07-29 12:01:00 Test Item Value Reference Range Interpretation Comments Calcium Lvl (test code = Calcium Lvl) 7.9 8.5-10.5 [place] 480482-07-29 12:01:00 Test Item Value Reference Range Interpretation Comments eGFR (test code = eGFR) 56 [place] 480482-07-29 12:01:00 Test Item Value Reference Range Interpretation Comments Magnesium Lvl (test code = Magnesium 1.7 1.8-2.4 Lvl) [facility]2022-07-29 12:01:00 Test Item Value Reference Range Interpretation Comments Glucose Lvl (test code = Glucose Lvl) 104 70-99 [place] 480482-07-29 12:01:00 Test Item Value Reference Range Interpretation Comments BUN (test code = BUN) 29 7-22 [place] 480482-07-29 12:01:00 Test Item Value Reference Range Interpretation Comments Creatinine Lvl (test code = Creatinine 0.98 0.50-1.40 Lvl) [facility]2022-07-29 12:01:00 Test Item Value Reference Range Interpretation Comments Sodium Lvl (test code = Sodium Lvl) 133 135-145 [facility]2022-07-29 12:01:00 Test Item Value Reference Range Interpretation Comments Potassium Lvl (test code = Potassium 2.7 3.5-5.1 Lvl) [facility]2022-07-29 12:01:00 Test Item Value Reference Range Interpretation Comments Chloride Lvl (test code = Chloride Lvl) 91 95-109 [facility]2022-07-29 12:01:00 Test Item Value Reference Range Interpretation Comments CO2 (test code = CO2) 33 24-32 [facility]2022-07-29 12:01:00 Test Item Value Reference Range Interpretation Comments AGAP (test code = AGAP) 11.7 10.0-20.0 [facility]2022-07-29 12:01:00 Test Item Value Reference Range Interpretation Comments Calcium Lvl (test code = Calcium Lvl) 7.9 8.5-10.5 [facility]2022-07-29 12:01:00 Test Item Value Reference Range Interpretation Comments eGFR (test code = eGFR) 56 [facility]2022-07-29 12:01:00 Test Item Value Reference Range Interpretation Comments Magnesium Lvl (test code = Magnesium 1.7 1.8-2.4 Lvl) [facility]2022-07-29 12:01:00 Test Item Value Reference Range Interpretation Comments Glucose Lvl (test code = Glucose Lvl) 104 70-99 [place] 480482-07-29 12:01:00 Test Item Value Reference Range Interpretation Comments BUN (test code = BUN) 06-10 [place] 480482-07-29 12:01:00 Test Item Value Reference Range Interpretation Comments Creatinine Lvl (test code = Creatinine 0.98 0.50-1.40 Lvl) [place] 480482-07-29 12:01:00 Test Item Value Reference Range Interpretation Comments Sodium Lvl (test code = Sodium Lvl) 133 135-145 [place] 480482-07-29 12:01:00 Test Item Value Reference Range Interpretation Comments Potassium Lvl (test code = Potassium 2.7 3.5-5.1 Lvl) [place] 480482-07-29 12:01:00 Test Item Value Reference Range Interpretation Comments Chloride Lvl (test code = Chloride Lvl) 91 95-109 [place] 480482-07-29 12:01:00 Test Item Value Reference Range Interpretation Comments CO2 (test code = CO2) 33 24-32 [facility]2022-07-29 12:01:00 Test Item Value Reference Range Interpretation Comments AGAP (test code = AGAP) 11.7 10.0-20.0 [place] 480482-07-29 12:01:00 Test Item Value Reference Range Interpretation Comments Calcium Lvl (test code = Calcium Lvl) 7.9 8.5-10.5 [place] 480482-07-29 12:01:00 Test Item Value Reference Range Interpretation Comments eGFR (test code = eGFR) 56 [facility]2022-07-29 12:01:00 Test Item Value Reference Range Interpretation Comments Magnesium Lvl (test code = Magnesium 1.7 1.8-2.4 Lvl) [facility]2022-07-29 12:01:00 Test Item Value Reference Range Interpretation Comments Glucose Lvl (test code = Glucose Lvl) 104 70-99 [facility]2022-07-29 12:01:00 Test Item Value Reference Range Interpretation Comments BUN (test code = BUN) 29 - [place] 480482-07-29 12:01:00 Test Item Value Reference Range Interpretation Comments Creatinine Lvl (test code = Creatinine 0.98 0.50-1.40 Lvl) [place] 480482-07-29 12:01:00 Test Item Value Reference Range Interpretation Comments Sodium Lvl (test code = Sodium Lvl) 133 135-145 [place] 480482-07-29 12:01:00 Test Item Value Reference Range Interpretation Comments Potassium Lvl (test code = Potassium 2.7 3.5-5.1 Lvl) [place] 480482-07-29 12:01:00 Test Item Value Reference Range Interpretation Comments Chloride Lvl (test code = Chloride Lvl) 91 95-109 [place] 480482-07-29 12:01:00 Test Item Value Reference Range Interpretation Comments CO2 (test code = CO2) 33 24-32 [place] 480482-07-29 12:01:00 Test Item Value Reference Range Interpretation Comments AGAP (test code = AGAP) 11.7 10.0-20.0 [place] 480482-07-29 12:01:00 Test Item Value Reference Range Interpretation Comments Calcium Lvl (test code = Calcium Lvl) 7.9 8.5-10.5 [place] 480482-07-29 12:01:00 Test Item Value Reference Range Interpretation Comments eGFR (test code = eGFR) 56 [place] 480482-07-29 12:01:00 Test Item Value Reference Range Interpretation Comments Magnesium Lvl (test code = Magnesium 1.7 1.8-2.4 Lvl) [facility]2022-07-29 12:01:00 Test Item Value Reference Range Interpretation Comments Glucose Lvl (test code = Glucose Lvl) 104 70-99 [place] 480482-07-29 12:01:00 Test Item Value Reference Range Interpretation Comments BUN (test code = BUN) 29 7-22 [place] 480482-07-29 12:01:00 Test Item Value Reference Range Interpretation Comments Creatinine Lvl (test code = Creatinine 0.98 0.50-1.40 Lvl) [place] 480482-07-29 12:01:00 Test Item Value Reference Range Interpretation Comments Sodium Lvl (test code = Sodium Lvl) 133 135-145 [place] 480482-07-29 12:01:00 Test Item Value Reference Range Interpretation Comments Potassium Lvl (test code = Potassium 2.7 3.5-5.1 Lvl) [place] 480482-07-29 12:01:00 Test Item Value Reference Range Interpretation Comments Chloride Lvl (test code = Chloride Lvl) 91 95-109 [place] 480482-07-29 12:01:00 Test Item Value Reference Range Interpretation Comments CO2 (test code = CO2) 33 24-32 [place] 480482-07-29 12:01:00 Test Item Value Reference Range Interpretation Comments AGAP (test code = AGAP) 11.7 10.0-20.0 [place] 480482-07-29 12:01:00 Test Item Value Reference Range Interpretation Comments Calcium Lvl (test code = Calcium Lvl) 7.9 8.5-10.5 [place] 480482-07-29 12:01:00 Test Item Value Reference Range Interpretation Comments eGFR (test code = eGFR) 56 [place] 480482-07-29 12:01:00 Test Item Value Reference Range Interpretation Comments Magnesium Lvl (test code = Magnesium 1.7 1.8-2.4 Lvl) [place] 480482-07-29 12:01:00 Test Item Value Reference Range Interpretation Comments Glucose Lvl (test code = Glucose Lvl) 104 70-99 [place] 480482-07-29 12:01:00 Test Item Value Reference Range Interpretation Comments BUN (test code = BUN) 29 7-22 [place] 480482-07-29 12:01:00 Test Item Value Reference Range Interpretation Comments Creatinine Lvl (test code = Creatinine 0.98 0.50-1.40 Lvl) [facility]2022-07-29 12:01:00 Test Item Value Reference Range Interpretation Comments Sodium Lvl (test code = Sodium Lvl) 133 135-145 [place] 480482-07-29 12:01:00 Test Item Value Reference Range Interpretation Comments Potassium Lvl (test code = Potassium 2.7 3.5-5.1 Lvl) [place] 480482-07-29 12:01:00 Test Item Value Reference Range Interpretation Comments Chloride Lvl (test code = Chloride Lvl) 91 95-109 [place] 480482-07-29 12:01:00 Test Item Value Reference Range Interpretation Comments CO2 (test code = CO2) 33 24-32 [facility]2022-07-29 12:01:00 Test Item Value Reference Range Interpretation Comments AGAP (test code = AGAP) 11.7 10.0-20.0 [place] 480482-07-29 12:01:00 Test Item Value Reference Range Interpretation Comments Calcium Lvl (test code = Calcium Lvl) 7.9 8.5-10.5 [place] 480482-07-29 12:01:00 Test Item Value Reference Range Interpretation Comments eGFR (test code = eGFR) 56 [facility]2022-07-29 12:01:00 Test Item Value Reference Range Interpretation Comments Magnesium Lvl (test code = Magnesium 1.7 1.8-2.4 Lvl) [facility]2022-07-29 12:01:00 Test Item Value Reference Range Interpretation Comments Glucose Lvl (test code = Glucose Lvl) 104 70-99 [facility]2022-07-29 12:01:00 Test Item Value Reference Range Interpretation Comments BUN (test code = BUN) 29 7-22 [facility]2022-07-29 12:01:00 Test Item Value Reference Range Interpretation Comments Creatinine Lvl (test code = Creatinine 0.98 0.50-1.40 Lvl) [facility]2022-07-29 12:01:00 Test Item Value Reference Range Interpretation Comments Sodium Lvl (test code = Sodium Lvl) 133 135-145 [facility]2022-07-29 12:01:00 Test Item Value Reference Range Interpretation Comments Potassium Lvl (test code = Potassium 2.7 3.5-5.1 Lvl) [place] 480482-07-29 12:01:00 Test Item Value Reference Range Interpretation Comments Chloride Lvl (test code = Chloride Lvl) 91 95-109 [place] 480482-07-29 12:01:00 Test Item Value Reference Range Interpretation Comments CO2 (test code = CO2) 33 24-32 [facility]2022-07-29 12:01:00 Test Item Value Reference Range Interpretation Comments AGAP (test code = AGAP) 11.7 10.0-20.0 [place] 480482-07-29 12:01:00 Test Item Value Reference Range Interpretation Comments Calcium Lvl (test code = Calcium Lvl) 7.9 8.5-10.5 [place] 480482-07-29 12:01:00 Test Item Value Reference Range Interpretation Comments eGFR (test code = eGFR) 56 [place] 480482-07-29 12:01:00 Test Item Value Reference Range Interpretation Comments Magnesium Lvl (test code = Magnesium 1.7 1.8-2.4 Lvl) [facility]2022-07-29 12:01:00 Test Item Value Reference Range Interpretation Comments Glucose Lvl (test code = Glucose Lvl) 104 70-99 [place] 480482-07-29 12:01:00 Test Item Value Reference Range Interpretation Comments BUN (test code = BUN) 29 7-22 [place] 480482-07-29 12:01:00 Test Item Value Reference Range Interpretation Comments Creatinine Lvl (test code = Creatinine 0.98 0.50-1.40 Lvl) [facility]2022-07-29 12:01:00 Test Item Value Reference Range Interpretation Comments Sodium Lvl (test code = Sodium Lvl) 133 135-145 [place] 480482-07-29 12:01:00 Test Item Value Reference Range Interpretation Comments Potassium Lvl (test code = Potassium 2.7 3.5-5.1 Lvl) [facility]2022-07-29 12:01:00 Test Item Value Reference Range Interpretation Comments Chloride Lvl (test code = Chloride Lvl) 91 95-109 [facility]2022-07-29 12:01:00 Test Item Value Reference Range Interpretation Comments CO2 (test code = CO2) 33 24-32 [facility]2022-07-29 12:01:00 Test Item Value Reference Range Interpretation Comments AGAP (test code = AGAP) 11.7 10.0-20.0 [facility]2022-07-29 12:01:00 Test Item Value Reference Range Interpretation Comments Calcium Lvl (test code = Calcium Lvl) 7.9 8.5-10.5 [place] 480482-07-29 12:01:00 Test Item Value Reference Range Interpretation Comments eGFR (test code = eGFR) 56 [place] 480482-07-29 12:01:00 Test Item Value Reference Range Interpretation Comments Magnesium Lvl (test code = Magnesium 1.7 1.8-2.4 Lvl) [place] 480482-07-29 12:01:00 Test Item Value Reference Range Interpretation Comments Glucose Lvl (test code = Glucose Lvl) 104 70-99 [place] 480482-07-29 12:01:00 Test Item Value Reference Range Interpretation Comments BUN (test code = BUN) 29 7-22 [place] 480482-07-29 12:01:00 Test Item Value Reference Range Interpretation Comments Creatinine Lvl (test code = Creatinine 0.98 0.50-1.40 Lvl) [place] 480482-07-29 12:01:00 Test Item Value Reference Range Interpretation Comments Sodium Lvl (test code = Sodium Lvl) 133 135-145 [place] 480482-07-29 12:01:00 Test Item Value Reference Range Interpretation Comments Potassium Lvl (test code = Potassium 2.7 3.5-5.1 Lvl) [place] 480482-07-29 12:01:00 Test Item Value Reference Range Interpretation Comments Chloride Lvl (test code = Chloride Lvl) 91 95-109 [place] 480482-07-29 12:01:00 Test Item Value Reference Range Interpretation Comments CO2 (test code = CO2) 33 24-32 [place] 480482-07-29 12:01:00 Test Item Value Reference Range Interpretation Comments AGAP (test code = AGAP) 11.7 10.0-20.0 [place] 480482-07-29 12:01:00 Test Item Value Reference Range Interpretation Comments Calcium Lvl (test code = Calcium Lvl) 7.9 8.5-10.5 [place] 480482-07-29 12:01:00 Test Item Value Reference Range Interpretation Comments eGFR (test code = eGFR) 56 [place] 480482-07-29 12:01:00 Test Item Value Reference Range Interpretation Comments Magnesium Lvl (test code = Magnesium 1.7 1.8-2.4 Lvl) [place] 480482-07-29 12:01:00 Test Item Value Reference Range Interpretation Comments Glucose Lvl (test code = Glucose Lvl) 104 70-99 [facility]2022-07-29 12:01:00 Test Item Value Reference Range Interpretation Comments BUN (test code = BUN) 06-10 [place] 480482-07-29 12:01:00 Test Item Value Reference Range Interpretation Comments Creatinine Lvl (test code = Creatinine 0.98 0.50-1.40 Lvl) [facility]2022-07-29 12:01:00 Test Item Value Reference Range Interpretation Comments Sodium Lvl (test code = Sodium Lvl) 133 135-145 [place] 480482-07-29 12:01:00 Test Item Value Reference Range Interpretation Comments Potassium Lvl (test code = Potassium 2.7 3.5-5.1 Lvl) [facility]2022-07-29 12:01:00 Test Item Value Reference Range Interpretation Comments Chloride Lvl (test code = Chloride Lvl) 91 95-109 [facility]2022-07-29 12:01:00 Test Item Value Reference Range Interpretation Comments CO2 (test code = CO2) 33 24-32 [facility]2022-07-29 12:01:00 Test Item Value Reference Range Interpretation Comments AGAP (test code = AGAP) 11.7 10.0-20.0 [facility]2022-07-29 12:01:00 Test Item Value Reference Range Interpretation Comments Calcium Lvl (test code = Calcium Lvl) 7.9 8.5-10.5 [facility]2022-07-29 12:01:00 Test Item Value Reference Range Interpretation Comments eGFR (test code = eGFR) 56 [facility]2022-07-29 12:01:00 Test Item Value Reference Range Interpretation Comments Magnesium Lvl (test code = Magnesium 1.7 1.8-2.4 Lvl) [facility]2022-07-29 12:01:00 Test Item Value Reference Range Interpretation Comments Glucose Lvl (test code = Glucose Lvl) 104 70-99 [place] 480482-07-29 12:01:00 Test Item Value Reference Range Interpretation Comments BUN (test code = BUN) 29 - [facility]2022-07-29 12:01:00 Test Item Value Reference Range Interpretation Comments Creatinine Lvl (test code = Creatinine 0.98 0.50-1.40 Lvl) [place] 480482-07-29 12:01:00 Test Item Value Reference Range Interpretation Comments Sodium Lvl (test code = Sodium Lvl) 133 135-145 [place] 480482-07-29 12:01:00 Test Item Value Reference Range Interpretation Comments Potassium Lvl (test code = Potassium 2.7 3.5-5.1 Lvl) [place] 480482-07-29 12:01:00 Test Item Value Reference Range Interpretation Comments Chloride Lvl (test code = Chloride Lvl) 91 95-109 [place] 480482-07-29 12:01:00 Test Item Value Reference Range Interpretation Comments CO2 (test code = CO2) 33 24-32 [place] 480482-07-29 12:01:00 Test Item Value Reference Range Interpretation Comments AGAP (test code = AGAP) 11.7 10.0-20.0 [place] 480482-07-29 12:01:00 Test Item Value Reference Range Interpretation Comments Calcium Lvl (test code = Calcium Lvl) 7.9 8.5-10.5 [place] 480482-07-29 12:01:00 Test Item Value Reference Range Interpretation Comments eGFR (test code = eGFR) 56 [place] 480482-07-29 12:01:00 Test Item Value Reference Range Interpretation Comments Magnesium Lvl (test code = Magnesium 1.7 1.8-2.4 Lvl) [place] 480482-07-27 09:07:00 Test Item Value Reference Range Interpretation Comments eGFR (test code = eGFR) 59 [place] 325412-07-27 09:07:00 Test Item Value Reference Range Interpretation Comments WBC (test code = WBC) 7.2 3.7-10.4 [place] 325412-07-27 09:07:00 Test Item Value Reference Range Interpretation Comments RBC (test code = RBC) 3.06 4.20-5.40 [place] 325412-07-27 09:07:00 Test Item Value Reference Range Interpretation Comments Hgb (test code = Hgb) 7.4 12.0-16.0 [place] 325412-07-27 09:07:00 Test Item Value Reference Range Interpretation Comments Hct (test code = Hct) 22.5 36.0-48.0 [place] 325412-07-27 09:07:00 Test Item Value Reference Range Interpretation Comments MCV (test code = MCV) 73.6 80.0-98.0 [place] 325412-07-27 09:07:00 Test Item Value Reference Range Interpretation Comments MCH (test code = MCH) 24.2 pg 27.0-31.0 [facility]arzqslFPXUGDIPQW2850-54-01 09:07:00 Test Item Value Reference Range Interpretation Comments MCHC (test code = MCHC) 32.9 32.0-36.0 [facility] CampusNuaufwyZFJUVNSXJR7921-70-20 09:07:00 Test Item Value Reference Range Interpretation Comments RDW (test code = RDW) 20.8 11.5-14.5 [place] 325412-07-27 09:07:00 Test Item Value Reference Range Interpretation Comments Platelet (test code = Platelet) 286 133-450 [facility] CampusEsvtuozCEBFIJPWDM3452-35-46 09:07:00 Test Item Value Reference Range Interpretation Comments MPV (test code = MPV) 7.4 7.4-10.4 [facility] CampusEjijhggPUUZBIDHBD4036-07-27 09:07:00 Test Item Value Reference Range Interpretation Comments Segs (test code = Segs) 73.8 45.0-75.0 [place] 325412-07-27 09:07:00 Test Item Value Reference Range Interpretation Comments Lymphocytes (test code = Lymphocytes) 17.2 20.0-40.0 [place] 325412-07-27 09:07:00 Test Item Value Reference Range Interpretation Comments Monocytes (test code = Monocytes) 8.8 2.0-12.0 [place] 325412-07-27 09:07:00 Test Item Value Reference Range Interpretation Comments Neutrophils # (test code = Neutrophils 5.3 1.5-8.1 #) [facility] CampusRyxptctBMFWKLPECY8464-87-33 09:07:00 Test Item Value Reference Range Interpretation Comments Lymphocytes # (test code = Lymphocytes 1.2 1.0-5.5 #) [place] 325412-07-27 09:07:00 Test Item Value Reference Range Interpretation Comments Monocytes # (test code 0.6 See_Comment [Aut omated message] The = Monocytes #) system which generated this result tra nsmitted reference range : <=0.8. The reference r hugo was not used to int erpret this result as normal/abnormal . [facility] CampusCtipusuZSLDAYTKZR6885-38-90 09:07:00 Test Item Value Reference Range Interpretation Comments Microcyte (test code = 1+ *ABN*(06/15/22 Microcyte) 4:07 AM) [place] [address]-07-27 09:07:00 Test Item Value Reference Range Interpretation Comments Glucose Lvl (test code = Glucose Lvl) 108 70-99 [place] 480482-07-27 09:07:00 Test Item Value Reference Range Interpretation Comments BUN (test code = BUN) 29 - [place] 480482-07-27 09:07:00 Test Item Value Reference Range Interpretation Comments Creatinine Lvl (test code = Creatinine 0.94 0.50-1.40 Lvl) [place] 480482-07-27 09:07:00 Test Item Value Reference Range Interpretation Comments Sodium Lvl (test code = Sodium Lvl) 131 135-145 [place] 480482-07-27 09:07:00 Test Item Value Reference Range Interpretation Comments Potassium Lvl (test code = Potassium 3.2 3.5-5.1 Lvl) [place] 480482-07-27 09:07:00 Test Item Value Reference Range Interpretation Comments Chloride Lvl (test code = Chloride Lvl) 93 95-109 [place] 480482-07-27 09:07:00 Test Item Value Reference Range Interpretation Comments CO2 (test code = CO2) 31 24-32 [place] 480482-07-27 09:07:00 Test Item Value Reference Range Interpretation Comments Calcium Lvl (test code = Calcium Lvl) 8.0 8.5-10.5 [place] 480482-07-27 09:07:00 Test Item Value Reference Range Interpretation Comments Total Protein (test code = Total 5.7 6.4-8.4 Protein) [place] 480482-07-27 09:07:00 Test Item Value Reference Range Interpretation Comments Albumin Lvl (test code = Albumin Lvl) 2.6 3.5-5.0 [facility]2022-07-27 09:07:00 Test Item Value Reference Range Interpretation Comments ALT (test code = ALT) 18 See_Comment [Auto mated message] The system which ge nerated this result transmit lavon reference range : <=65. The reference range was not used to interpr et this result as dionne l/abnormal. [facility]2022-07-27 09:07:00 Test Item Value Reference Range Interpretation Comments AST (test code = AST) 28 See_Comment [Auto mated message] The system which ge nerated this result transmit lavon reference range : <=37. The reference range was not used to interpr et this result as dionne l/abnormal. [facility]2022-07-27 09:07:00 Test Item Value Reference Range Interpretation Comments Alk Phos (test code = Alk Phos) 44 39-136 [facility] [employer]2022-07-27 09:07:00 Test Item Value Reference Range Interpretation Comments Bili Total (test code = Bili Total) 1.1 0.2-1.3 [facility]2022-07-27 09:07:00 Test Item Value Reference Range Interpretation Comments AGAP (test code = AGAP) 10.2 10.0-20.0 [facility]2022-07-27 09:07:00 Test Item Value Reference Range Interpretation Comments B/C Ratio (test code = B/C Ratio) 31 1 6-25 [facility]2022-07-27 09:07:00 Test Item Value Reference Range Interpretation Comments Globulin (test code = Globulin) 3.1 2.7-4.2 [facility]2022-07-27 09:07:00 Test Item Value Reference Range Interpretation Comments A/G Ratio (test code = A/G Ratio) 0.8 1 0.7-1.6 [facility]2022-07-27 09:07:00 Test Item Value Reference Range Interpretation Comments Glucose Lvl (test code = Glucose Lvl) 108 70-99 [facility] [employer] [facility]2022-07-27 09:07:00 Test Item Value Reference Range Interpretation Comments BUN (test code = BUN) 29 7-22 [facility]2022-07-27 09:07:00 Test Item Value Reference Range Interpretation Comments Creatinine Lvl (test code = Creatinine 0.94 0.50-1.40 Lvl) [place] 480482-07-27 09:07:00 Test Item Value Reference Range Interpretation Comments Sodium Lvl (test code = Sodium Lvl) 131 135-145 [place] 480482-07-27 09:07:00 Test Item Value Reference Range Interpretation Comments Potassium Lvl (test code = Potassium 3.2 3.5-5.1 Lvl) [place] 480482-07-27 09:07:00 Test Item Value Reference Range Interpretation Comments Chloride Lvl (test code = Chloride Lvl) 93 95-109 [place] 480482-07-27 09:07:00 Test Item Value Reference Range Interpretation Comments CO2 (test code = CO2) 31 24-32 [place] 480482-07-27 09:07:00 Test Item Value Reference Range Interpretation Comments Calcium Lvl (test code = Calcium Lvl) 8.0 8.5-10.5 [place] 480482-07-27 09:07:00 Test Item Value Reference Range Interpretation Comments Total Protein (test code = Total 5.7 6.4-8.4 Protein) [place] 480482-07-27 09:07:00 Test Item Value Reference Range Interpretation Comments Albumin Lvl (test code = Albumin Lvl) 2.6 3.5-5.0 [place] 480482-07-27 09:07:00 Test Item Value Reference Range Interpretation Comments ALT (test code = ALT) 18 See_Comment [Auto mated message] The system which [employer] nerated this result transmit lavon reference range : <=65. The reference range was not used to interpr et this result as dionne l/abnormal. [place] 480482-07-27 09:07:00 Test Item Value Reference Range Interpretation Comments AST (test code = AST) 28 See_Comment [Auto mated message] The system which [employer] nerated this result transmit lavon reference range : <=37. The reference range was not used to interpr et this result as dionne l/abnormal. [place] 480482-07-27 09:07:00 Test Item Value Reference Range Interpretation Comments Alk Phos (test code = Alk Phos) 44 39-136 [place] [address]-07-27 09:07:00 Test Item Value Reference Range Interpretation Comments Bili Total (test code = Bili Total) 1.1 0.2-1.3 [place] 480482-07-27 09:07:00 Test Item Value Reference Range Interpretation Comments AGAP (test code = AGAP) 10.2 10.0-20.0 [place] 480482-07-27 09:07:00 Test Item Value Reference Range Interpretation Comments B/C Ratio (test code = B/C Ratio) 31 1 6-25 [place] [address]-07-27 09:07:00 Test Item Value Reference Range Interpretation Comments Globulin (test code = Globulin) 3.1 2.7-4.2 [place] 480482-07-27 09:07:00 Test Item Value Reference Range Interpretation Comments A/G Ratio (test code = A/G Ratio) 0.8 1 0.7-1.6 [place] 480482-07-27 09:07:00 Test Item Value Reference Range Interpretation Comments eGFR (test code = eGFR) 59 [place] 325412-07-27 09:07:00 Test Item Value Reference Range Interpretation Comments WBC (test code = WBC) 7.2 3.7-10.4 [place] 325412-07-27 09:07:00 Test Item Value Reference Range Interpretation Comments RBC (test code = RBC) 3.06 4.20-5.40 [place] 325412-07-27 09:07:00 Test Item Value Reference Range Interpretation Comments Hgb (test code = Hgb) 7.4 12.0-16.0 [place] 325412-07-27 09:07:00 Test Item Value Reference Range Interpretation Comments Hct (test code = Hct) 22.5 36.0-48.0 [place] [address]-07-27 09:07:00 Test Item Value Reference Range Interpretation Comments MCV (test code = MCV) 73.6 80.0-98.0 [place] [address]-07-27 09:07:00 Test Item Value Reference Range Interpretation Comments MCH (test code = MCH) 24.2 pg 27.0-31.0 [place] 325412-07-27 09:07:00 Test Item Value Reference Range Interpretation Comments MCHC (test code = MCHC) 32.9 32.0-36.0 [place] 325412-07-27 09:07:00 Test Item Value Reference Range Interpretation Comments RDW (test code = RDW) 20.8 11.5-14.5 [place] 325412-07-27 09:07:00 Test Item Value Reference Range Interpretation Comments Platelet (test code = Platelet) 286 133-450 [facility] CampusAxgtnabSHLVARIGLU7953-22-65 09:07:00 Test Item Value Reference Range Interpretation Comments MPV (test code = MPV) 7.4 7.4-10.4 [place] 325412-07-27 09:07:00 Test Item Value Reference Range Interpretation Comments Segs (test code = Segs) 73.8 45.0-75.0 [place] 325412-07-27 09:07:00 Test Item Value Reference Range Interpretation Comments Lymphocytes (test code = Lymphocytes) 17.2 20.0-40.0 [place] 325412-07-27 09:07:00 Test Item Value Reference Range Interpretation Comments Monocytes (test code = Monocytes) 8.8 2.0-12.0 [facility] CampusDrfammgUTCVBDCZII9377-43-08 09:07:00 Test Item Value Reference Range Interpretation Comments Neutrophils # (test code = Neutrophils 5.3 1.5-8.1 #) [facility] CampusZpwmalnQTFZBKWCWA1717-44-19 09:07:00 Test Item Value Reference Range Interpretation Comments Lymphocytes # (test code = Lymphocytes 1.2 1.0-5.5 #) [place] 325412-07-27 09:07:00 Test Item Value Reference Range Interpretation Comments Monocytes # (test code 0.6 See_Comment [Aut omated message] The = Monocytes #) system which generated this result tra nsmitted reference range : <=0.8. The reference r hugo was not used to int erpret this result as normal/abnormal . [facility] CampusLmgbcraYRQCNCZKZC5336-04-34 09:07:00 Test Item Value Reference Range Interpretation Comments Microcyte (test code = 1+ *ABN*(06/15/22 Microcyte) 4:07 AM) [facility]2022-07-27 09:07:00 Test Item Value Reference Range Interpretation Comments Glucose Lvl (test code = Glucose Lvl) 108 70-99 [place] 480482-07-27 09:07:00 Test Item Value Reference Range Interpretation Comments BUN (test code = BUN) 29 7-22 [place] 480482-07-27 09:07:00 Test Item Value Reference Range Interpretation Comments Creatinine Lvl (test code = Creatinine 0.94 0.50-1.40 Lvl) [place] 480482-07-27 09:07:00 Test Item Value Reference Range Interpretation Comments Sodium Lvl (test code = Sodium Lvl) 131 135-145 [place] 480482-07-27 09:07:00 Test Item Value Reference Range Interpretation Comments Potassium Lvl (test code = Potassium 3.2 3.5-5.1 Lvl) [place] 480482-07-27 09:07:00 Test Item Value Reference Range Interpretation Comments Chloride Lvl (test code = Chloride Lvl) 93 95-109 [place] 480482-07-27 09:07:00 Test Item Value Reference Range Interpretation Comments CO2 (test code = CO2) 31 24-32 [place] 480482-07-27 09:07:00 Test Item Value Reference Range Interpretation Comments Calcium Lvl (test code = Calcium Lvl) 8.0 8.5-10.5 [place] 480482-07-27 09:07:00 Test Item Value Reference Range Interpretation Comments Total Protein (test code = Total 5.7 6.4-8.4 Protein) [place] 480482-07-27 09:07:00 Test Item Value Reference Range Interpretation Comments Albumin Lvl (test code = Albumin Lvl) 2.6 3.5-5.0 [place] 480482-07-27 09:07:00 Test Item Value Reference Range Interpretation Comments ALT (test code = ALT) 18 See_Comment [Auto mated message] The system which ge nerated this result transmit lavon reference range : <=65. The reference range was not used to interpr et this result as dionne l/abnormal. [place] 480482-07-27 09:07:00 Test Item Value Reference Range Interpretation Comments AST (test code = AST) 28 See_Comment [Auto mated message] The system which ge nerated this result transmit lavon reference range : <=37. The reference range was not used to interpr et this result as dionne l/abnormal. [place] 480482-07-27 09:07:00 Test Item Value Reference Range Interpretation Comments Alk Phos (test code = Alk Phos) 44 39-136 [place] 480482-07-27 09:07:00 Test Item Value Reference Range Interpretation Comments Bili Total (test code = Bili Total) 1.1 0.2-1.3 [place] 480482-07-27 09:07:00 Test Item Value Reference Range Interpretation Comments AGAP (test code = AGAP) 10.2 10.0-20.0 [place] 480482-07-27 09:07:00 Test Item Value Reference Range Interpretation Comments B/C Ratio (test code = B/C Ratio) 31 1 6-25 [place] 480482-07-27 09:07:00 Test Item Value Reference Range Interpretation Comments Globulin (test code = Globulin) 3.1 2.7-4.2 [place] 480482-07-27 09:07:00 Test Item Value Reference Range Interpretation Comments A/G Ratio (test code = A/G Ratio) 0.8 1 0.7-1.6 [place] 480482-07-27 09:07:00 Test Item Value Reference Range Interpretation Comments eGFR (test code = eGFR) 59 [place] 325412-07-27 09:07:00 Test Item Value Reference Range Interpretation Comments WBC (test code = WBC) 7.2 3.7-10.4 [place] 325412-07-27 09:07:00 Test Item Value Reference Range Interpretation Comments RBC (test code = RBC) 3.06 4.20-5.40 [place] [address]-07-27 09:07:00 Test Item Value Reference Range Interpretation Comments Hgb (test code = Hgb) 7.4 12.0-16.0 [place] [address]-07-27 09:07:00 Test Item Value Reference Range Interpretation Comments Hct (test code = Hct) 22.5 36.0-48.0 [place] [address]-07-27 09:07:00 Test Item Value Reference Range Interpretation Comments MCV (test code = MCV) 73.6 80.0-98.0 [facility] CampusJyljpwxELXTKMNRMU7174-21-19 09:07:00 Test Item Value Reference Range Interpretation Comments MCH (test code = MCH) 24.2 pg 27.0-31.0 [facility] CampusWtzfhteFLITKAHBDO7203-03-84 09:07:00 Test Item Value Reference Range Interpretation Comments MCHC (test code = MCHC) 32.9 32.0-36.0 [facility] CampusTejimyyGCPUIJHDHX6338-43-19 09:07:00 Test Item Value Reference Range Interpretation Comments RDW (test code = RDW) 20.8 11.5-14.5 [facility] CampusKzzssviGCSKIMWIUC3311-71-41 09:07:00 Test Item Value Reference Range Interpretation Comments Platelet (test code = Platelet) 286 133-450 [facility] [id number] 09:07:00 Test Item Value Reference Range Interpretation Comments MPV (test code = MPV) 7.4 7.4-10.4 [facility] CampusJcxgvqzVZMGXKWTQE7580-06-52 09:07:00 Test Item Value Reference Range Interpretation Comments Segs (test code = Segs) 73.8 45.0-75.0 [facility] CampusXtmhptaZWBYFTKMAZ7469-01-11 09:07:00 Test Item Value Reference Range Interpretation Comments Lymphocytes (test code = Lymphocytes) 17.2 20.0-40.0 [facility] CampusIympjhoUJZADSIJXE0023-12-75 09:07:00 Test Item Value Reference Range Interpretation Comments Monocytes (test code = Monocytes) 8.8 2.0-12.0 [facility] CampusDavipoqSNEELYOGYR4310-86-42 09:07:00 Test Item Value Reference Range Interpretation Comments Neutrophils # (test code = Neutrophils 5.3 1.5-8.1 #) [facility] CampusYajztpmKKMBZXKFBG6994-40-07 09:07:00 Test Item Value Reference Range Interpretation Comments Lymphocytes # (test code = Lymphocytes 1.2 1.0-5.5 #) [place] 325412-07-27 09:07:00 Test Item Value Reference Range Interpretation Comments Monocytes # (test code 0.6 See_Comment [Aut omated message] The = Monocytes #) system which generated this result tra nsmitted reference range : <=0.8. The reference r hugo was not used to int erpret this result as normal/abnormal . [place] 325412-07-27 09:07:00 Test Item Value Reference Range Interpretation Comments Microcyte (test code = 1+ *ABN*(06/15/22 Microcyte) 4:07 AM) [place] 480482-07-27 09:07:00 Test Item Value Reference Range Interpretation Comments Glucose Lvl (test code = Glucose Lvl) 108 70-99 [place] 480482-07-27 09:07:00 Test Item Value Reference Range Interpretation Comments BUN (test code = BUN) 29 - [place] 480482-07-27 09:07:00 Test Item Value Reference Range Interpretation Comments Creatinine Lvl (test code = Creatinine 0.94 0.50-1.40 Lvl) [place] 480482-07-27 09:07:00 Test Item Value Reference Range Interpretation Comments Sodium Lvl (test code = Sodium Lvl) 131 135-145 [place] 480482-07-27 09:07:00 Test Item Value Reference Range Interpretation Comments Potassium Lvl (test code = Potassium 3.2 3.5-5.1 Lvl) [place] 480482-07-27 09:07:00 Test Item Value Reference Range Interpretation Comments Chloride Lvl (test code = Chloride Lvl) 93 95-109 [place] 480482-07-27 09:07:00 Test Item Value Reference Range Interpretation Comments CO2 (test code = CO2) 31 24-32 [place] 480482-07-27 09:07:00 Test Item Value Reference Range Interpretation Comments Calcium Lvl (test code = Calcium Lvl) 8.0 8.5-10.5 [place] 480482-07-27 09:07:00 Test Item Value Reference Range Interpretation Comments Total Protein (test code = Total 5.7 6.4-8.4 Protein) [place] 480482-07-27 09:07:00 Test Item Value Reference Range Interpretation Comments Albumin Lvl (test code = Albumin Lvl) 2.6 3.5-5.0 [place] 480482-07-27 09:07:00 Test Item Value Reference Range Interpretation Comments ALT (test code = ALT) 18 See_Comment [Auto mated message] The system which ge nerated this result transmit lavon reference range : <=65. The reference range was not used to interpr et this result as dionne l/abnormal. [place] 480482-07-27 09:07:00 Test Item Value Reference Range Interpretation Comments AST (test code = AST) 28 See_Comment [Auto mated message] The system which ge nerated this result transmit lavon reference range : <=37. The reference range was not used to interpr et this result as dionne l/abnormal. [place] 480482-07-27 09:07:00 Test Item Value Reference Range Interpretation Comments Alk Phos (test code = Alk Phos) 44 39-136 [place] [address]-07-27 09:07:00 Test Item Value Reference Range Interpretation Comments Bili Total (test code = Bili Total) 1.1 0.2-1.3 [place] [address]-07-27 09:07:00 Test Item Value Reference Range Interpretation Comments AGAP (test code = AGAP) 10.2 10.0-20.0 [place] [address]-07-27 09:07:00 Test Item Value Reference Range Interpretation Comments B/C Ratio (test code = B/C Ratio) 31 1 6-25 [place] [address]-07-27 09:07:00 Test Item Value Reference Range Interpretation Comments Globulin (test code = Globulin) 3.1 2.7-4.2 [place] [address]-07-27 09:07:00 Test Item Value Reference Range Interpretation Comments A/G Ratio (test code = A/G Ratio) 0.8 1 0.7-1.6 [place] [address]-07-27 09:07:00 Test Item Value Reference Range Interpretation Comments eGFR (test code = eGFR) 59 [place] [address]-07-27 09:07:00 Test Item Value Reference Range Interpretation Comments WBC (test code = WBC) 7.2 3.7-10.4 [place] [address]-07-27 09:07:00 Test Item Value Reference Range Interpretation Comments RBC (test code = RBC) 3.06 4.20-5.40 [place] [address]-07-27 09:07:00 Test Item Value Reference Range Interpretation Comments Hgb (test code = Hgb) 7.4 12.0-16.0 [place] 325412-07-27 09:07:00 Test Item Value Reference Range Interpretation Comments Hct (test code = Hct) 22.5 36.0-48.0 [facility] CampusVqpmtdqKJBATHAYAK0571-47-44 09:07:00 Test Item Value Reference Range Interpretation Comments MCV (test code = MCV) 73.6 80.0-98.0 [place] 325412-07-27 09:07:00 Test Item Value Reference Range Interpretation Comments MCH (test code = MCH) 24.2 pg 27.0-31.0 [facility] CampusEjtdwccIJRALDSVGX6270-77-69 09:07:00 Test Item Value Reference Range Interpretation Comments MCHC (test code = MCHC) 32.9 32.0-36.0 [facility] CampusEoijmxfAAWCABCCHC8712-36-04 09:07:00 Test Item Value Reference Range Interpretation Comments RDW (test code = RDW) 20.8 11.5-14.5 [place] 325412-07-27 09:07:00 Test Item Value Reference Range Interpretation Comments Platelet (test code = Platelet) 286 133-450 [facility] CampusEedrpzjEBWQNFAAVA1055-52-68 09:07:00 Test Item Value Reference Range Interpretation Comments MPV (test code = MPV) 7.4 7.4-10.4 [facility] CampusMsafbumKUCQHYOULB3340-06-02 09:07:00 Test Item Value Reference Range Interpretation Comments Segs (test code = Segs) 73.8 45.0-75.0 [facility] CampusRinrradHCVKMWOJEW3886-18-66 09:07:00 Test Item Value Reference Range Interpretation Comments Lymphocytes (test code = Lymphocytes) 17.2 20.0-40.0 [facility] CampusItnpvlmITQZZGJHGM9343-04-92 09:07:00 Test Item Value Reference Range Interpretation Comments Monocytes (test code = Monocytes) 8.8 2.0-12.0 [place] 325412-07-27 09:07:00 Test Item Value Reference Range Interpretation Comments Neutrophils # (test code = Neutrophils 5.3 1.5-8.1 #) [facility] CampusEynclopDGATIWDGNY9668-07-24 09:07:00 Test Item Value Reference Range Interpretation Comments Lymphocytes # (test code = Lymphocytes 1.2 1.0-5.5 #) [facility] CampusGbhmmxqKOMCAWVBQZ2776-00-92 09:07:00 Test Item Value Reference Range Interpretation Comments Monocytes # (test code 0.6 See_Comment [Aut omated message] The = Monocytes #) system which generated this result tra nsmitted reference range : <=0.8. The reference r hugo was not used to int erpret this result as normal/abnormal . [place] 325412-07-27 09:07:00 Test Item Value Reference Range Interpretation Comments Microcyte (test code = 1+ *ABN*(06/15/22 Microcyte) 4:07 AM) [place] 480482-07-27 09:07:00 Test Item Value Reference Range Interpretation Comments Glucose Lvl (test code = Glucose Lvl) 108 70-99 [place] 480482-07-27 09:07:00 Test Item Value Reference Range Interpretation Comments BUN (test code = BUN) 29 06-10 [place] 480482-07-27 09:07:00 Test Item Value Reference Range Interpretation Comments Creatinine Lvl (test code = Creatinine 0.94 0.50-1.40 Lvl) [place] 480482-07-27 09:07:00 Test Item Value Reference Range Interpretation Comments Sodium Lvl (test code = Sodium Lvl) 131 135-145 [place] 480482-07-27 09:07:00 Test Item Value Reference Range Interpretation Comments Potassium Lvl (test code = Potassium 3.2 3.5-5.1 Lvl) [place] 480482-07-27 09:07:00 Test Item Value Reference Range Interpretation Comments Chloride Lvl (test code = Chloride Lvl) 93 95-109 [place] 480482-07-27 09:07:00 Test Item Value Reference Range Interpretation Comments CO2 (test code = CO2) 31 24-32 [place] 480482-07-27 09:07:00 Test Item Value Reference Range Interpretation Comments Calcium Lvl (test code = Calcium Lvl) 8.0 8.5-10.5 [place] 480482-07-27 09:07:00 Test Item Value Reference Range Interpretation Comments Total Protein (test code = Total 5.7 6.4-8.4 Protein) [place] 480482-07-27 09:07:00 Test Item Value Reference Range Interpretation Comments Albumin Lvl (test code = Albumin Lvl) 2.6 3.5-5.0 [facility] [employer] [id number] 09:07:00 Test Item Value Reference Range Interpretation Comments ALT (test code = ALT) 18 See_Comment [Auto mated message] The system which ge nerated this result transmit lavon reference range : <=65. The reference range was not used to interpr et this result as dionne l/abnormal. [facility] [employer] [id number] 09:07:00 Test Item Value Reference Range Interpretation Comments AST (test code = AST) 28 See_Comment [Auto mated message] The system which ge nerated this result transmit lavon reference range : <=37. The reference range was not used to interpr et this result as dionne l/abnormal. [facility] [employer] [id number] 09:07:00 Test Item Value Reference Range Interpretation Comments Alk Phos (test code = Alk Phos) 44 39-136 [facility] [employer] [id number] 09:07:00 Test Item Value Reference Range Interpretation Comments Bili Total (test code = Bili Total) 1.1 0.2-1.3 [facility] [employer] [id number] 09:07:00 Test Item Value Reference Range Interpretation Comments AGAP (test code = AGAP) 10.2 10.0-20.0 [facility] [employer] [id number] 09:07:00 Test Item Value Reference Range Interpretation Comments B/C Ratio (test code = B/C Ratio) 31 1 6-25 [facility] [employer] [id number] 09:07:00 Test Item Value Reference Range Interpretation Comments Globulin (test code = Globulin) 3.1 2.7-4.2 [facility] [employer] [id number] 09:07:00 Test Item Value Reference Range Interpretation Comments A/G Ratio (test code = A/G Ratio) 0.8 1 0.7-1.6 [facility] [employer] [id number] 09:07:00 Test Item Value Reference Range Interpretation Comments eGFR (test code = eGFR) 59 [facility]ENMMJBBMBX7396-01-87 09:07:00 Test Item Value Reference Range Interpretation Comments WBC (test code = WBC) 7.2 3.7-10.4 [facility] YafmlgiIGOFDMNUXB8466-81-64 09:07:00 Test Item Value Reference Range Interpretation Comments RBC (test code = RBC) 3.06 4.20-5.40 [facility] CampusOoscafiZTNXMKBWDT6727-65-81 09:07:00 Test Item Value Reference Range Interpretation Comments Hgb (test code = Hgb) 7.4 12.0-16.0 [place] 325412-07-27 09:07:00 Test Item Value Reference Range Interpretation Comments Hct (test code = Hct) 22.5 36.0-48.0 [place] 325412-07-27 09:07:00 Test Item Value Reference Range Interpretation Comments MCV (test code = MCV) 73.6 80.0-98.0 [place] 325412-07-27 09:07:00 Test Item Value Reference Range Interpretation Comments MCH (test code = MCH) 24.2 pg 27.0-31.0 [facility] CampusEyzvsdcITUFJNYRXM3976-68-31 09:07:00 Test Item Value Reference Range Interpretation Comments MCHC (test code = MCHC) 32.9 32.0-36.0 [facility] CampusOsaeconULMUMKQXYG3374-06-79 09:07:00 Test Item Value Reference Range Interpretation Comments RDW (test code = RDW) 20.8 11.5-14.5 [facility] CampusRbogefdLTGXEPEBYG9010-52-67 09:07:00 Test Item Value Reference Range Interpretation Comments Platelet (test code = Platelet) 286 133-450 [facility] CampusMxvkjoxYURHTJMVGL2506-64-38 09:07:00 Test Item Value Reference Range Interpretation Comments MPV (test code = MPV) 7.4 7.4-10.4 [place] 325412-07-27 09:07:00 Test Item Value Reference Range Interpretation Comments Segs (test code = Segs) 73.8 45.0-75.0 [place] 325412-07-27 09:07:00 Test Item Value Reference Range Interpretation Comments Lymphocytes (test code = Lymphocytes) 17.2 20.0-40.0 [place] 325412-07-27 09:07:00 Test Item Value Reference Range Interpretation Comments Monocytes (test code = Monocytes) 8.8 2.0-12.0 [place] 325412-07-27 09:07:00 Test Item Value Reference Range Interpretation Comments Neutrophils # (test code = Neutrophils 5.3 1.5-8.1 #) [place] 325412-07-27 09:07:00 Test Item Value Reference Range Interpretation Comments Lymphocytes # (test code = Lymphocytes 1.2 1.0-5.5 #) [place] 325412-07-27 09:07:00 Test Item Value Reference Range Interpretation Comments Monocytes # (test code 0.6 See_Comment [Aut omated message] The = Monocytes #) system which generated this result tra nsmitted reference range : <=0.8. The reference r hugo was not used to int erpret this result as normal/abnormal . [place] 325412-07-27 09:07:00 Test Item Value Reference Range Interpretation Comments Microcyte (test code = 1+ *ABN*(06/15/22 Microcyte) 4:07 AM) [place] 480482-07-27 09:07:00 Test Item Value Reference Range Interpretation Comments Glucose Lvl (test code = Glucose Lvl) 108 70-99 [place] 480482-07-27 09:07:00 Test Item Value Reference Range Interpretation Comments BUN (test code = BUN) 29 - [place] 480482-07-27 09:07:00 Test Item Value Reference Range Interpretation Comments Creatinine Lvl (test code = Creatinine 0.94 0.50-1.40 Lvl) [place] 480482-07-27 09:07:00 Test Item Value Reference Range Interpretation Comments Sodium Lvl (test code = Sodium Lvl) 131 135-145 [place] 480482-07-27 09:07:00 Test Item Value Reference Range Interpretation Comments Potassium Lvl (test code = Potassium 3.2 3.5-5.1 Lvl) [place] 480482-07-27 09:07:00 Test Item Value Reference Range Interpretation Comments Chloride Lvl (test code = Chloride Lvl) 93 95-109 [place] 480482-07-27 09:07:00 Test Item Value Reference Range Interpretation Comments CO2 (test code = CO2) 31 24-32 [place] 480482-07-27 09:07:00 Test Item Value Reference Range Interpretation Comments Calcium Lvl (test code = Calcium Lvl) 8.0 8.5-10.5 [facility] [id number] 09:07:00 Test Item Value Reference Range Interpretation Comments Total Protein (test code = Total 5.7 6.4-8.4 Protein) [place] 480482-07-27 09:07:00 Test Item Value Reference Range Interpretation Comments Albumin Lvl (test code = Albumin Lvl) 2.6 3.5-5.0 [facility] [id number] 09:07:00 Test Item Value Reference Range Interpretation Comments ALT (test code = ALT) 18 See_Comment [Auto mated message] The system which ge nerated this result transmit lavon reference range : <=65. The reference range was not used to interpr et this result as dionne l/abnormal. [facility] [id number] 09:07:00 Test Item Value Reference Range Interpretation Comments AST (test code = AST) 28 See_Comment [Auto mated message] The system which ge nerated this result transmit lavon reference range : <=37. The reference range was not used to interpr et this result as dionne l/abnormal. [facility] [id number] 09:07:00 Test Item Value Reference Range Interpretation Comments Alk Phos (test code = Alk Phos) 44 39-136 [facility] [id number] 09:07:00 Test Item Value Reference Range Interpretation Comments Bili Total (test code = Bili Total) 1.1 0.2-1.3 [facility] [id number] 09:07:00 Test Item Value Reference Range Interpretation Comments AGAP (test code = AGAP) 10.2 10.0-20.0 [facility] [id number] 09:07:00 Test Item Value Reference Range Interpretation Comments B/C Ratio (test code = B/C Ratio) 31 1 6-25 [facility] [id number] 09:07:00 Test Item Value Reference Range Interpretation Comments Globulin (test code = Globulin) 3.1 2.7-4.2 [facility] [id number] 09:07:00 Test Item Value Reference Range Interpretation Comments A/G Ratio (test code = A/G Ratio) 0.8 1 0.7-1.6 [facility]XABLF7005-22-19 09:07:00 Test Item Value Reference Range Interpretation Comments eGFR (test code = eGFR) 59 [facility] CampusSyaawulKCOMUPNGJI3117-56-33 09:07:00 Test Item Value Reference Range Interpretation Comments WBC (test code = WBC) 7.2 3.7-10.4 [place] 325412-07-27 09:07:00 Test Item Value Reference Range Interpretation Comments RBC (test code = RBC) 3.06 4.20-5.40 [place] 325412-07-27 09:07:00 Test Item Value Reference Range Interpretation Comments Hgb (test code = Hgb) 7.4 12.0-16.0 [place] 325412-07-27 09:07:00 Test Item Value Reference Range Interpretation Comments Hct (test code = Hct) 22.5 36.0-48.0 [place] 325412-07-27 09:07:00 Test Item Value Reference Range Interpretation Comments MCV (test code = MCV) 73.6 80.0-98.0 [place] 325412-07-27 09:07:00 Test Item Value Reference Range Interpretation Comments MCH (test code = MCH) 24.2 pg 27.0-31.0 [place] 325412-07-27 09:07:00 Test Item Value Reference Range Interpretation Comments MCHC (test code = MCHC) 32.9 32.0-36.0 [place] 325412-07-27 09:07:00 Test Item Value Reference Range Interpretation Comments RDW (test code = RDW) 20.8 11.5-14.5 [place] 325412-07-27 09:07:00 Test Item Value Reference Range Interpretation Comments Platelet (test code = Platelet) 286 133-450 [facility] CampusMenrufoEPZECEGJJL0598-87-01 09:07:00 Test Item Value Reference Range Interpretation Comments MPV (test code = MPV) 7.4 7.4-10.4 [place] 325412-07-27 09:07:00 Test Item Value Reference Range Interpretation Comments Segs (test code = Segs) 73.8 45.0-75.0 [place] 325412-07-27 09:07:00 Test Item Value Reference Range Interpretation Comments Lymphocytes (test code = Lymphocytes) 17.2 20.0-40.0 [place] [address]-07-27 09:07:00 Test Item Value Reference Range Interpretation Comments Monocytes (test code = Monocytes) 8.8 2.0-12.0 [place] 325412-07-27 09:07:00 Test Item Value Reference Range Interpretation Comments Neutrophils # (test code = Neutrophils 5.3 1.5-8.1 #) [place] 325412-07-27 09:07:00 Test Item Value Reference Range Interpretation Comments Lymphocytes # (test code = Lymphocytes 1.2 1.0-5.5 #) [place] [address]-07-27 09:07:00 Test Item Value Reference Range Interpretation Comments Monocytes # (test code 0.6 See_Comment [Aut omated message] The = Monocytes #) system which generated this result tra nsmitted reference range : <=0.8. The reference r hugo was not used to int erpret this result as normal/abnormal . [place] 325412-07-27 09:07:00 Test Item Value Reference Range Interpretation Comments Microcyte (test code = 1+ *ABN*(06/15/22 Microcyte) 4:07 AM) [place] [address]-07-27 09:07:00 Test Item Value Reference Range Interpretation Comments Glucose Lvl (test code = Glucose Lvl) 108 70-99 [place] 480482-07-27 09:07:00 Test Item Value Reference Range Interpretation Comments BUN (test code = BUN) 29 -22 [place] 480482-07-27 09:07:00 Test Item Value Reference Range Interpretation Comments Creatinine Lvl (test code = Creatinine 0.94 0.50-1.40 Lvl) [place] 480482-07-27 09:07:00 Test Item Value Reference Range Interpretation Comments Sodium Lvl (test code = Sodium Lvl) 131 135-145 [place] 480482-07-27 09:07:00 Test Item Value Reference Range Interpretation Comments Potassium Lvl (test code = Potassium 3.2 3.5-5.1 Lvl) [place] 480482-07-27 09:07:00 Test Item Value Reference Range Interpretation Comments Chloride Lvl (test code = Chloride Lvl) 93 95-109 [place] [address]-07-27 09:07:00 Test Item Value Reference Range Interpretation Comments CO2 (test code = CO2) 31 24-32 [place] 480482-07-27 09:07:00 Test Item Value Reference Range Interpretation Comments Calcium Lvl (test code = Calcium Lvl) 8.0 8.5-10.5 [place] 480482-07-27 09:07:00 Test Item Value Reference Range Interpretation Comments Total Protein (test code = Total 5.7 6.4-8.4 Protein) [place] 480482-07-27 09:07:00 Test Item Value Reference Range Interpretation Comments Albumin Lvl (test code = Albumin Lvl) 2.6 3.5-5.0 [facility] [id number] 09:07:00 Test Item Value Reference Range Interpretation Comments ALT (test code = ALT) 18 See_Comment [Auto mated message] The system which ge nerated this result transmit lavon reference range : <=65. The reference range was not used to interpr et this result as dionne l/abnormal. [facility] [id number] 09:07:00 Test Item Value Reference Range Interpretation Comments AST (test code = AST) 28 See_Comment [Auto mated message] The system which ge nerated this result transmit lavon reference range : <=37. The reference range was not used to interpr et this result as dionne l/abnormal. [place] 480482-07-27 09:07:00 Test Item Value Reference Range Interpretation Comments Alk Phos (test code = Alk Phos) 44 39-136 [facility] [id number] 09:07:00 Test Item Value Reference Range Interpretation Comments Bili Total (test code = Bili Total) 1.1 0.2-1.3 [place] 480482-07-27 09:07:00 Test Item Value Reference Range Interpretation Comments AGAP (test code = AGAP) 10.2 10.0-20.0 [facility] [id number] 09:07:00 Test Item Value Reference Range Interpretation Comments B/C Ratio (test code = B/C Ratio) 31 1 6-25 [facility] [id number] 09:07:00 Test Item Value Reference Range Interpretation Comments Globulin (test code = Globulin) 3.1 2.7-4.2 [facility]CHE[facility] [id number] 09:07:00 Test Item Value Reference Range Interpretation Comments A/G Ratio (test code = A/G Ratio) 0.8 1 0.7-1.6 [facility] [id number] 09:07:00 Test Item Value Reference Range Interpretation Comments eGFR (test code = eGFR) 59 [facility] CampusNurtqzeMKEXDKLVXO3120-63-71 09:07:00 Test Item Value Reference Range Interpretation Comments WBC (test code = WBC) 7.2 3.7-10.4 [facility] CampusGbjyaolZIADWIEICE4636-87-78 09:07:00 Test Item Value Reference Range Interpretation Comments RBC (test code = RBC) 3.06 4.20-5.40 [facility] CampusQxpfyjlNHEAXSJCQZ5680-13-80 09:07:00 Test Item Value Reference Range Interpretation Comments Hgb (test code = Hgb) 7.4 12.0-16.0 [facility] CampusIzzyrduSGZEEVFRFN3565-64-99 09:07:00 Test Item Value Reference Range Interpretation Comments Hct (test code = Hct) 22.5 36.0-48.0 [facility] CampusOyvygfhVTZMYTMWPS0833-89-35 09:07:00 Test Item Value Reference Range Interpretation Comments MCV (test code = MCV) 73.6 80.0-98.0 [facility] CampusVrzcvheQQCPWGPCSW7826-97-06 09:07:00 Test Item Value Reference Range Interpretation Comments MCH (test code = MCH) 24.2 pg 27.0-31.0 [facility] [facility] [id number] 09:07:00 Test Item Value Reference Range Interpretation Comments MCHC (test code = MCHC) 32.9 32.0-36.0 [facility] CampusAondbozFGVMZENZCC8308-60-13 09:07:00 Test Item Value Reference Range Interpretation Comments RDW (test code = RDW) 20.8 11.5-14.5 [facility] CampusAkqjgwmCBGIQFHYXR5915-28-76 09:07:00 Test Item Value Reference Range Interpretation Comments Platelet (test code = Platelet) 286 133-450 [facility] CampusLazlrdaRSIXYPMFAN2222-71-62 09:07:00 Test Item Value Reference Range Interpretation Comments MPV (test code = MPV) 7.4 7.4-10.4 [place] [address]-07-27 09:07:00 Test Item Value Reference Range Interpretation Comments Segs (test code = Segs) 73.8 45.0-75.0 [place] 325412-07-27 09:07:00 Test Item Value Reference Range Interpretation Comments Lymphocytes (test code = Lymphocytes) 17.2 20.0-40.0 [place] [address]-07-27 09:07:00 Test Item Value Reference Range Interpretation Comments Monocytes (test code = Monocytes) 8.8 2.0-12.0 [place] [address]-07-27 09:07:00 Test Item Value Reference Range Interpretation Comments Neutrophils # (test code = Neutrophils 5.3 1.5-8.1 #) [place] 325412-07-27 09:07:00 Test Item Value Reference Range Interpretation Comments Lymphocytes # (test code = Lymphocytes 1.2 1.0-5.5 #) [place] 325412-07-27 09:07:00 Test Item Value Reference Range Interpretation Comments Monocytes # (test code 0.6 See_Comment [Aut omated message] The = Monocytes #) system which generated this result tra nsmitted reference range : <=0.8. The reference r hugo was not used to int erpret this result as normal/abnormal . [place] 325412-07-27 09:07:00 Test Item Value Reference Range Interpretation Comments Microcyte (test code = 1+ *ABN*(06/15/22 Microcyte) 4:07 AM) [place] 480482-07-27 09:07:00 Test Item Value Reference Range Interpretation Comments Glucose Lvl (test code = Glucose Lvl) 108 70-99 [place] 480482-07-27 09:07:00 Test Item Value Reference Range Interpretation Comments BUN (test code = BUN) 29 -22 [place] 480482-07-27 09:07:00 Test Item Value Reference Range Interpretation Comments Creatinine Lvl (test code = Creatinine 0.94 0.50-1.40 Lvl) [place] 480482-07-27 09:07:00 Test Item Value Reference Range Interpretation Comments Sodium Lvl (test code = Sodium Lvl) 131 135-145 [place] 480482-07-27 09:07:00 Test Item Value Reference Range Interpretation Comments Potassium Lvl (test code = Potassium 3.2 3.5-5.1 Lvl) [place] 480482-07-27 09:07:00 Test Item Value Reference Range Interpretation Comments Chloride Lvl (test code = Chloride Lvl) 93 95-109 [place] 480482-07-27 09:07:00 Test Item Value Reference Range Interpretation Comments CO2 (test code = CO2) 31 24-32 [place] 480482-07-27 09:07:00 Test Item Value Reference Range Interpretation Comments Calcium Lvl (test code = Calcium Lvl) 8.0 8.5-10.5 [place] 480482-07-27 09:07:00 Test Item Value Reference Range Interpretation Comments Total Protein (test code = Total 5.7 6.4-8.4 Protein) [place] 480482-07-27 09:07:00 Test Item Value Reference Range Interpretation Comments Albumin Lvl (test code = Albumin Lvl) 2.6 3.5-5.0 [facility] [id number] 09:07:00 Test Item Value Reference Range Interpretation Comments ALT (test code = ALT) 18 See_Comment [Auto mated message] The system which ge nerated this result transmit lavon reference range : <=65. The reference range was not used to interpr et this result as dionne l/abnormal. [place] 480482-07-27 09:07:00 Test Item Value Reference Range Interpretation Comments AST (test code = AST) 28 See_Comment [Auto mated message] The system which ge nerated this result transmit lavon reference range : <=37. The reference range was not used to interpr et this result as dionne l/abnormal. [place] 480482-07-27 09:07:00 Test Item Value Reference Range Interpretation Comments Alk Phos (test code = Alk Phos) 44 39-136 [place] 480482-07-27 09:07:00 Test Item Value Reference Range Interpretation Comments Bili Total (test code = Bili Total) 1.1 0.2-1.3 [place] 480482-07-27 09:07:00 Test Item Value Reference Range Interpretation Comments AGAP (test code = AGAP) 10.2 10.0-20.0 [facility]2022-07-27 09:07:00 Test Item Value Reference Range Interpretation Comments B/C Ratio (test code = B/C Ratio) 31 1 6-25 [place] 480482-07-27 09:07:00 Test Item Value Reference Range Interpretation Comments Globulin (test code = Globulin) 3.1 2.7-4.2 [place] 480482-07-27 09:07:00 Test Item Value Reference Range Interpretation Comments A/G Ratio (test code = A/G Ratio) 0.8 1 0.7-1.6 [place] 480482-07-27 09:07:00 Test Item Value Reference Range Interpretation Comments eGFR (test code = eGFR) 59 [place] 325412-07-27 09:07:00 Test Item Value Reference Range Interpretation Comments WBC (test code = WBC) 7.2 3.7-10.4 [place] 325412-07-27 09:07:00 Test Item Value Reference Range Interpretation Comments RBC (test code = RBC) 3.06 4.20-5.40 [place] 325412-07-27 09:07:00 Test Item Value Reference Range Interpretation Comments Hgb (test code = Hgb) 7.4 12.0-16.0 [place] 325412-07-27 09:07:00 Test Item Value Reference Range Interpretation Comments Hct (test code = Hct) 22.5 36.0-48.0 [place] 325412-07-27 09:07:00 Test Item Value Reference Range Interpretation Comments MCV (test code = MCV) 73.6 80.0-98.0 [place] 325412-07-27 09:07:00 Test Item Value Reference Range Interpretation Comments MCH (test code = MCH) 24.2 pg 27.0-31.0 [place] 325412-07-27 09:07:00 Test Item Value Reference Range Interpretation Comments MCHC (test code = MCHC) 32.9 32.0-36.0 [place] 325412-07-27 09:07:00 Test Item Value Reference Range Interpretation Comments RDW (test code = RDW) 20.8 11.5-14.5 [place] 325412-07-27 09:07:00 Test Item Value Reference Range Interpretation Comments Platelet (test code = Platelet) 286 133-450 [place] 325412-07-27 09:07:00 Test Item Value Reference Range Interpretation Comments MPV (test code = MPV) 7.4 7.4-10.4 [place] 325412-07-27 09:07:00 Test Item Value Reference Range Interpretation Comments Segs (test code = Segs) 73.8 45.0-75.0 [place] 325412-07-27 09:07:00 Test Item Value Reference Range Interpretation Comments Lymphocytes (test code = Lymphocytes) 17.2 20.0-40.0 [place] 325412-07-27 09:07:00 Test Item Value Reference Range Interpretation Comments Monocytes (test code = Monocytes) 8.8 2.0-12.0 [place] 325412-07-27 09:07:00 Test Item Value Reference Range Interpretation Comments Neutrophils # (test code = Neutrophils 5.3 1.5-8.1 #) [facility] CampusJqupmfrBEQBNQYRWY6533-08-46 09:07:00 Test Item Value Reference Range Interpretation Comments Lymphocytes # (test code = Lymphocytes 1.2 1.0-5.5 #) [place] 325412-07-27 09:07:00 Test Item Value Reference Range Interpretation Comments Monocytes # (test code 0.6 See_Comment [Aut omated message] The = Monocytes #) system which generated this result tra nsmitted reference range : <=0.8. The reference r hugo was not used to int erpret this result as normal/abnormal . [facility] CampusFuhifesBCVTEJOSSA5734-89-25 09:07:00 Test Item Value Reference Range Interpretation Comments Microcyte (test code = 1+ *ABN*(06/15/22 Microcyte) 4:07 AM) [place] 480482-07-27 09:07:00 Test Item Value Reference Range Interpretation Comments Glucose Lvl (test code = Glucose Lvl) 108 70-99 [place] 480482-07-27 09:07:00 Test Item Value Reference Range Interpretation Comments BUN (test code = BUN) 29 -22 [place] 480482-07-27 09:07:00 Test Item Value Reference Range Interpretation Comments Creatinine Lvl (test code = Creatinine 0.94 0.50-1.40 Lvl) [place] [address]-07-27 09:07:00 Test Item Value Reference Range Interpretation Comments Sodium Lvl (test code = Sodium Lvl) 131 135-145 [place] 480482-07-27 09:07:00 Test Item Value Reference Range Interpretation Comments Potassium Lvl (test code = Potassium 3.2 3.5-5.1 Lvl) [place] [address]-07-27 09:07:00 Test Item Value Reference Range Interpretation Comments Chloride Lvl (test code = Chloride Lvl) 93 95-109 [place] [address]-07-27 09:07:00 Test Item Value Reference Range Interpretation Comments CO2 (test code = CO2) 31 24-32 [place] 480482-07-27 09:07:00 Test Item Value Reference Range Interpretation Comments Calcium Lvl (test code = Calcium Lvl) 8.0 8.5-10.5 [place] [address]-07-27 09:07:00 Test Item Value Reference Range Interpretation Comments Total Protein (test code = Total 5.7 6.4-8.4 Protein) [place] 480482-07-27 09:07:00 Test Item Value Reference Range Interpretation Comments Albumin Lvl (test code = Albumin Lvl) 2.6 3.5-5.0 [place] 480482-07-27 09:07:00 Test Item Value Reference Range Interpretation Comments ALT (test code = ALT) 18 See_Comment [Auto mated message] The system which [employer] nerated this result transmit lavon reference range : <=65. The reference range was not used to interpr et this result as dionne l/abnormal. [place] 480482-07-27 09:07:00 Test Item Value Reference Range Interpretation Comments AST (test code = AST) 28 See_Comment [Auto mated message] The system which [employer] nerated this result transmit lavon reference range : <=37. The reference range was not used to interpr et this result as dionne l/abnormal. [place] 480482-07-27 09:07:00 Test Item Value Reference Range Interpretation Comments Alk Phos (test code = Alk Phos) 44 39-136 [place] 480482-07-27 09:07:00 Test Item Value Reference Range Interpretation Comments Bili Total (test code = Bili Total) 1.1 0.2-1.3 [place] 480482-07-27 09:07:00 Test Item Value Reference Range Interpretation Comments AGAP (test code = AGAP) 10.2 10.0-20.0 [place] 480482-07-27 09:07:00 Test Item Value Reference Range Interpretation Comments B/C Ratio (test code = B/C Ratio) 31 1 6-25 [place] 480482-07-27 09:07:00 Test Item Value Reference Range Interpretation Comments Globulin (test code = Globulin) 3.1 2.7-4.2 [place] 480482-07-27 09:07:00 Test Item Value Reference Range Interpretation Comments A/G Ratio (test code = A/G Ratio) 0.8 1 0.7-1.6 [place] 480482-07-27 09:07:00 Test Item Value Reference Range Interpretation Comments eGFR (test code = eGFR) 59 [place] 325412-07-27 09:07:00 Test Item Value Reference Range Interpretation Comments WBC (test code = WBC) 7.2 3.7-10.4 [place] [address]-07-27 09:07:00 Test Item Value Reference Range Interpretation Comments RBC (test code = RBC) 3.06 4.20-5.40 [place] 325412-07-27 09:07:00 Test Item Value Reference Range Interpretation Comments Hgb (test code = Hgb) 7.4 12.0-16.0 [place] 325412-07-27 09:07:00 Test Item Value Reference Range Interpretation Comments Hct (test code = Hct) 22.5 36.0-48.0 [place] [address]-07-27 09:07:00 Test Item Value Reference Range Interpretation Comments MCV (test code = MCV) 73.6 80.0-98.0 [place] [address]-07-27 09:07:00 Test Item Value Reference Range Interpretation Comments MCH (test code = MCH) 24.2 pg 27.0-31.0 [place] [address]-07-27 09:07:00 Test Item Value Reference Range Interpretation Comments MCHC (test code = MCHC) 32.9 32.0-36.0 [place] 325412-07-27 09:07:00 Test Item Value Reference Range Interpretation Comments RDW (test code = RDW) 20.8 11.5-14.5 [place] 325412-07-27 09:07:00 Test Item Value Reference Range Interpretation Comments Platelet (test code = Platelet) 286 133-450 [facility] CampusHtjbtnaXENLKXQJJO2134-36-29 09:07:00 Test Item Value Reference Range Interpretation Comments MPV (test code = MPV) 7.4 7.4-10.4 [place] 325412-07-27 09:07:00 Test Item Value Reference Range Interpretation Comments Segs (test code = Segs) 73.8 45.0-75.0 [place] 325412-07-27 09:07:00 Test Item Value Reference Range Interpretation Comments Lymphocytes (test code = Lymphocytes) 17.2 20.0-40.0 [place] 325412-07-27 09:07:00 Test Item Value Reference Range Interpretation Comments Monocytes (test code = Monocytes) 8.8 2.0-12.0 [facility] CampusMgsucwkOJVGISVDMT6143-04-57 09:07:00 Test Item Value Reference Range Interpretation Comments Neutrophils # (test code = Neutrophils 5.3 1.5-8.1 #) [facility] CampusZjdscxpTNSFWKRCHU3609-38-14 09:07:00 Test Item Value Reference Range Interpretation Comments Lymphocytes # (test code = Lymphocytes 1.2 1.0-5.5 #) [place] 325412-07-27 09:07:00 Test Item Value Reference Range Interpretation Comments Monocytes # (test code 0.6 See_Comment [Aut omated message] The = Monocytes #) system which generated this result tra nsmitted reference range : <=0.8. The reference r hugo was not used to int erpret this result as normal/abnormal . [facility] CampusTzzepcaBWMXCLHCJA5661-26-47 09:07:00 Test Item Value Reference Range Interpretation Comments Microcyte (test code = 1+ *ABN*(06/15/22 Microcyte) 4:07 AM) [facility]2022-07-27 09:07:00 Test Item Value Reference Range Interpretation Comments Glucose Lvl (test code = Glucose Lvl) 108 70-99 [place] 480482-07-27 09:07:00 Test Item Value Reference Range Interpretation Comments BUN (test code = BUN) 29 7-22 [place] 480482-07-27 09:07:00 Test Item Value Reference Range Interpretation Comments Creatinine Lvl (test code = Creatinine 0.94 0.50-1.40 Lvl) [place] 480482-07-27 09:07:00 Test Item Value Reference Range Interpretation Comments Sodium Lvl (test code = Sodium Lvl) 131 135-145 [place] 480482-07-27 09:07:00 Test Item Value Reference Range Interpretation Comments Potassium Lvl (test code = Potassium 3.2 3.5-5.1 Lvl) [place] 480482-07-27 09:07:00 Test Item Value Reference Range Interpretation Comments Chloride Lvl (test code = Chloride Lvl) 93 95-109 [place] 480482-07-27 09:07:00 Test Item Value Reference Range Interpretation Comments CO2 (test code = CO2) 31 24-32 [place] 480482-07-27 09:07:00 Test Item Value Reference Range Interpretation Comments Calcium Lvl (test code = Calcium Lvl) 8.0 8.5-10.5 [place] 480482-07-27 09:07:00 Test Item Value Reference Range Interpretation Comments Total Protein (test code = Total 5.7 6.4-8.4 Protein) [place] 480482-07-27 09:07:00 Test Item Value Reference Range Interpretation Comments Albumin Lvl (test code = Albumin Lvl) 2.6 3.5-5.0 [place] 480482-07-27 09:07:00 Test Item Value Reference Range Interpretation Comments ALT (test code = ALT) 18 See_Comment [Auto mated message] The system which ge nerated this result transmit lavon reference range : <=65. The reference range was not used to interpr et this result as dionne l/abnormal. [place] 480482-07-27 09:07:00 Test Item Value Reference Range Interpretation Comments AST (test code = AST) 28 See_Comment [Auto mated message] The system which ge nerated this result transmit lavon reference range : <=37. The reference range was not used to interpr et this result as dionne l/abnormal. [place] 480482-07-27 09:07:00 Test Item Value Reference Range Interpretation Comments Alk Phos (test code = Alk Phos) 44 39-136 [place] 480482-07-27 09:07:00 Test Item Value Reference Range Interpretation Comments Bili Total (test code = Bili Total) 1.1 0.2-1.3 [place] 480482-07-27 09:07:00 Test Item Value Reference Range Interpretation Comments AGAP (test code = AGAP) 10.2 10.0-20.0 [place] 480482-07-27 09:07:00 Test Item Value Reference Range Interpretation Comments B/C Ratio (test code = B/C Ratio) 31 1 6-25 [place] [address]-07-27 09:07:00 Test Item Value Reference Range Interpretation Comments Globulin (test code = Globulin) 3.1 2.7-4.2 [place] 480482-07-27 09:07:00 Test Item Value Reference Range Interpretation Comments A/G Ratio (test code = A/G Ratio) 0.8 1 0.7-1.6 [place] 480482-07-27 09:07:00 Test Item Value Reference Range Interpretation Comments eGFR (test code = eGFR) 59 [place] 325412-07-27 09:07:00 Test Item Value Reference Range Interpretation Comments WBC (test code = WBC) 7.2 3.7-10.4 [place] 325412-07-27 09:07:00 Test Item Value Reference Range Interpretation Comments RBC (test code = RBC) 3.06 4.20-5.40 [place] [address]-07-27 09:07:00 Test Item Value Reference Range Interpretation Comments Hgb (test code = Hgb) 7.4 12.0-16.0 [place] 325412-07-27 09:07:00 Test Item Value Reference Range Interpretation Comments Hct (test code = Hct) 22.5 36.0-48.0 [place] [address]-07-27 09:07:00 Test Item Value Reference Range Interpretation Comments MCV (test code = MCV) 73.6 80.0-98.0 [facility] CampusZvkylgaNSGWDXZCHO0465-62-55 09:07:00 Test Item Value Reference Range Interpretation Comments MCH (test code = MCH) 24.2 pg 27.0-31.0 [facility] CampusNaalutcOCLJUYFVKS3532-09-93 09:07:00 Test Item Value Reference Range Interpretation Comments MCHC (test code = MCHC) 32.9 32.0-36.0 [facility] CampusKfaqzviSPQSVFWSXT3322-10-28 09:07:00 Test Item Value Reference Range Interpretation Comments RDW (test code = RDW) 20.8 11.5-14.5 [facility] CampusRwoovtcWPMTJERRTQ0659-44-46 09:07:00 Test Item Value Reference Range Interpretation Comments Platelet (test code = Platelet) 286 133-450 [facility] CampusXkxgelfMXOWFAXWSE7972-86-80 09:07:00 Test Item Value Reference Range Interpretation Comments MPV (test code = MPV) 7.4 7.4-10.4 [facility] CampusHqpdgyrDUODZRNJWL2516-31-22 09:07:00 Test Item Value Reference Range Interpretation Comments Segs (test code = Segs) 73.8 45.0-75.0 [facility] CampusNfikvulFADVLOJXGU9227-63-87 09:07:00 Test Item Value Reference Range Interpretation Comments Lymphocytes (test code = Lymphocytes) 17.2 20.0-40.0 [facility] CampusIrhtznsIFGDBJEYIH5086-55-19 09:07:00 Test Item Value Reference Range Interpretation Comments Monocytes (test code = Monocytes) 8.8 2.0-12.0 [facility] CampusTjosvosXZIDSAZHYR3006-53-18 09:07:00 Test Item Value Reference Range Interpretation Comments Neutrophils # (test code = Neutrophils 5.3 1.5-8.1 #) [facility] CampusEmalkuvSQRAOGTQOL9926-03-26 09:07:00 Test Item Value Reference Range Interpretation Comments Lymphocytes # (test code = Lymphocytes 1.2 1.0-5.5 #) [facility] CampusQdwxvfjLBSPANRBBX7358-88-45 09:07:00 Test Item Value Reference Range Interpretation Comments Monocytes # (test code 0.6 See_Comment [Aut omated message] The = Monocytes #) system which generated this result tra nsmitted reference range : <=0.8. The reference r hugo was not used to int erpret this result as normal/abnormal . [place] [address]-07-27 09:07:00 Test Item Value Reference Range Interpretation Comments Microcyte (test code = 1+ *ABN*(06/15/22 Microcyte) 4:07 AM) [place] 480482-07-27 09:07:00 Test Item Value Reference Range Interpretation Comments Glucose Lvl (test code = Glucose Lvl) 108 70-99 [place] 480482-07-27 09:07:00 Test Item Value Reference Range Interpretation Comments BUN (test code = BUN) 29 - [place] 480482-07-27 09:07:00 Test Item Value Reference Range Interpretation Comments Creatinine Lvl (test code = Creatinine 0.94 0.50-1.40 Lvl) [place] 480482-07-27 09:07:00 Test Item Value Reference Range Interpretation Comments Sodium Lvl (test code = Sodium Lvl) 131 135-145 [place] 480482-07-27 09:07:00 Test Item Value Reference Range Interpretation Comments Potassium Lvl (test code = Potassium 3.2 3.5-5.1 Lvl) [place] 480482-07-27 09:07:00 Test Item Value Reference Range Interpretation Comments Chloride Lvl (test code = Chloride Lvl) 93 95-109 [place] 480482-07-27 09:07:00 Test Item Value Reference Range Interpretation Comments CO2 (test code = CO2) 31 24-32 [place] 480482-07-27 09:07:00 Test Item Value Reference Range Interpretation Comments Calcium Lvl (test code = Calcium Lvl) 8.0 8.5-10.5 [place] 480482-07-27 09:07:00 Test Item Value Reference Range Interpretation Comments Total Protein (test code = Total 5.7 6.4-8.4 Protein) [place] 480482-07-27 09:07:00 Test Item Value Reference Range Interpretation Comments Albumin Lvl (test code = Albumin Lvl) 2.6 3.5-5.0 [place] 480482-07-27 09:07:00 Test Item Value Reference Range Interpretation Comments ALT (test code = ALT) 18 See_Comment [Auto mated message] The system which ge nerated this result transmit lavon reference range : <=65. The reference range was not used to interpr et this result as dionne l/abnormal. [place] 480482-07-27 09:07:00 Test Item Value Reference Range Interpretation Comments AST (test code = AST) 28 See_Comment [Auto mated message] The system which ge nerated this result transmit lavon reference range : <=37. The reference range was not used to interpr et this result as dionne l/abnormal. [place] 480482-07-27 09:07:00 Test Item Value Reference Range Interpretation Comments Alk Phos (test code = Alk Phos) 44 39-136 [place] 480482-07-27 09:07:00 Test Item Value Reference Range Interpretation Comments Bili Total (test code = Bili Total) 1.1 0.2-1.3 [place] 480482-07-27 09:07:00 Test Item Value Reference Range Interpretation Comments AGAP (test code = AGAP) 10.2 10.0-20.0 [place] [address]-07-27 09:07:00 Test Item Value Reference Range Interpretation Comments B/C Ratio (test code = B/C Ratio) 31 1 6-25 [place] [address]-07-27 09:07:00 Test Item Value Reference Range Interpretation Comments Globulin (test code = Globulin) 3.1 2.7-4.2 [place] 480482-07-27 09:07:00 Test Item Value Reference Range Interpretation Comments A/G Ratio (test code = A/G Ratio) 0.8 1 0.7-1.6 [place] [address]-07-27 09:07:00 Test Item Value Reference Range Interpretation Comments eGFR (test code = eGFR) 59 [place] [address]-07-27 09:07:00 Test Item Value Reference Range Interpretation Comments WBC (test code = WBC) 7.2 3.7-10.4 [place] 325412-07-27 09:07:00 Test Item Value Reference Range Interpretation Comments RBC (test code = RBC) 3.06 4.20-5.40 [place] 325412-07-27 09:07:00 Test Item Value Reference Range Interpretation Comments Hgb (test code = Hgb) 7.4 12.0-16.0 [place] 325412-07-27 09:07:00 Test Item Value Reference Range Interpretation Comments Hct (test code = Hct) 22.5 36.0-48.0 [place] 325412-07-27 09:07:00 Test Item Value Reference Range Interpretation Comments MCV (test code = MCV) 73.6 80.0-98.0 [place] 325412-07-27 09:07:00 Test Item Value Reference Range Interpretation Comments MCH (test code = MCH) 24.2 pg 27.0-31.0 [place] 325412-07-27 09:07:00 Test Item Value Reference Range Interpretation Comments MCHC (test code = MCHC) 32.9 32.0-36.0 [place] 325412-07-27 09:07:00 Test Item Value Reference Range Interpretation Comments RDW (test code = RDW) 20.8 11.5-14.5 [place] 325412-07-27 09:07:00 Test Item Value Reference Range Interpretation Comments Platelet (test code = Platelet) 286 133-450 [facility] CampusHgptolwVITGGRVOPI0124-15-01 09:07:00 Test Item Value Reference Range Interpretation Comments MPV (test code = MPV) 7.4 7.4-10.4 [place] 325412-07-27 09:07:00 Test Item Value Reference Range Interpretation Comments Segs (test code = Segs) 73.8 45.0-75.0 [place] 325412-07-27 09:07:00 Test Item Value Reference Range Interpretation Comments Lymphocytes (test code = Lymphocytes) 17.2 20.0-40.0 [place] 325412-07-27 09:07:00 Test Item Value Reference Range Interpretation Comments Monocytes (test code = Monocytes) 8.8 2.0-12.0 [place] 325412-07-27 09:07:00 Test Item Value Reference Range Interpretation Comments Neutrophils # (test code = Neutrophils 5.3 1.5-8.1 #) [place] 325412-07-27 09:07:00 Test Item Value Reference Range Interpretation Comments Lymphocytes # (test code = Lymphocytes 1.2 1.0-5.5 #) [facility] CampusHuzbrrsVOWCRKVSCD7008-19-65 09:07:00 Test Item Value Reference Range Interpretation Comments Monocytes # (test code 0.6 See_Comment [Aut omated message] The = Monocytes #) system which generated this result tra nsmitted reference range : <=0.8. The reference r hugo was not used to int erpret this result as normal/abnormal . [facility] CampusXigchuhGSWZQKMBXO9078-81-34 09:07:00 Test Item Value Reference Range Interpretation Comments Microcyte (test code = 1+ *ABN*(06/15/22 Microcyte) 4:07 AM) [place] 480482-07-27 09:07:00 Test Item Value Reference Range Interpretation Comments Glucose Lvl (test code = Glucose Lvl) 108 70-99 [place] 480482-07-27 09:07:00 Test Item Value Reference Range Interpretation Comments BUN (test code = BUN) 29 06-10 [place] 480482-07-27 09:07:00 Test Item Value Reference Range Interpretation Comments Creatinine Lvl (test code = Creatinine 0.94 0.50-1.40 Lvl) [place] 480482-07-27 09:07:00 Test Item Value Reference Range Interpretation Comments Sodium Lvl (test code = Sodium Lvl) 131 135-145 [place] 480482-07-27 09:07:00 Test Item Value Reference Range Interpretation Comments Potassium Lvl (test code = Potassium 3.2 3.5-5.1 Lvl) [place] 480482-07-27 09:07:00 Test Item Value Reference Range Interpretation Comments Chloride Lvl (test code = Chloride Lvl) 93 95-109 [place] 480482-07-27 09:07:00 Test Item Value Reference Range Interpretation Comments CO2 (test code = CO2) 31 24-32 [place] 480482-07-27 09:07:00 Test Item Value Reference Range Interpretation Comments Calcium Lvl (test code = Calcium Lvl) 8.0 8.5-10.5 [place] 480482-07-27 09:07:00 Test Item Value Reference Range Interpretation Comments Total Protein (test code = Total 5.7 6.4-8.4 Protein) [place] 480482-07-27 09:07:00 Test Item Value Reference Range Interpretation Comments Albumin Lvl (test code = Albumin Lvl) 2.6 3.5-5.0 [facility] [employer] [id number] 09:07:00 Test Item Value Reference Range Interpretation Comments ALT (test code = ALT) 18 See_Comment [Auto mated message] The system which ge nerated this result transmit lavon reference range : <=65. The reference range was not used to interpr et this result as dionne l/abnormal. [facility] [employer] [id number] 09:07:00 Test Item Value Reference Range Interpretation Comments AST (test code = AST) 28 See_Comment [Auto mated message] The system which ge nerated this result transmit lavon reference range : <=37. The reference range was not used to interpr et this result as dionne l/abnormal. [facility] [employer] [id number] 09:07:00 Test Item Value Reference Range Interpretation Comments Alk Phos (test code = Alk Phos) 44 39-136 [facility] [employer] [id number] 09:07:00 Test Item Value Reference Range Interpretation Comments Bili Total (test code = Bili Total) 1.1 0.2-1.3 [facility] [employer] [id number] 09:07:00 Test Item Value Reference Range Interpretation Comments AGAP (test code = AGAP) 10.2 10.0-20.0 [facility] [employer] [id number] 09:07:00 Test Item Value Reference Range Interpretation Comments B/C Ratio (test code = B/C Ratio) 31 1 6-25 [facility] [employer] [id number] 09:07:00 Test Item Value Reference Range Interpretation Comments Globulin (test code = Globulin) 3.1 2.7-4.2 [facility] [employer] [id number] 09:07:00 Test Item Value Reference Range Interpretation Comments A/G Ratio (test code = A/G Ratio) 0.8 1 0.7-1.6 [facility] [employer] [id number] 09:07:00 Test Item Value Reference Range Interpretation Comments eGFR (test code = eGFR) 59 [facility]ZEJCKIIKG2455[facility] 09:07:00 Test Item Value Reference Range Interpretation Comments WBC (test code = WBC) 7.2 3.7-10.4 [facility] CenterKsppjhrSWTJIUGSTA7936-92-51 09:07:00 Test Item Value Reference Range Interpretation Comments RBC (test code = RBC) 3.06 4.20-5.40 [facility] CampusWsdomtfKAMNPZYZHR7191-75-07 09:07:00 Test Item Value Reference Range Interpretation Comments Hgb (test code = Hgb) 7.4 12.0-16.0 [facility] CampusKicjlckAXZHBFHQBZ1683-90-80 09:07:00 Test Item Value Reference Range Interpretation Comments Hct (test code = Hct) 22.5 36.0-48.0 [facility] CampusDgdgwcyDNINLCJGAT1993-25-24 09:07:00 Test Item Value Reference Range Interpretation Comments MCV (test code = MCV) 73.6 80.0-98.0 [facility] CampusFpyyakdYDSFEZBEGY8401-86-21 09:07:00 Test Item Value Reference Range Interpretation Comments MCH (test code = MCH) 24.2 pg 27.0-31.0 [facility] CampusLotalppWWKPLLZEDL6859-37-08 09:07:00 Test Item Value Reference Range Interpretation Comments MCHC (test code = MCHC) 32.9 32.0-36.0 [facility] CampusYwpuctrJMOOFTDWLD4366-00-50 09:07:00 Test Item Value Reference Range Interpretation Comments RDW (test code = RDW) 20.8 11.5-14.5 [facility] CampusCjuwqxtHTDGNYROOS1688-17-22 09:07:00 Test Item Value Reference Range Interpretation Comments Platelet (test code = Platelet) 286 133-450 [facility] CampusUubyikwGBMGHJSIYT8793-99-40 09:07:00 Test Item Value Reference Range Interpretation Comments MPV (test code = MPV) 7.4 7.4-10.4 [facility] CampusIisnvzwSGNVCSJNML4477-36-30 09:07:00 Test Item Value Reference Range Interpretation Comments Segs (test code = Segs) 73.8 45.0-75.0 [facility] CampusXlsvxbdZOTYUAOZJL2781-67-86 09:07:00 Test Item Value Reference Range Interpretation Comments Lymphocytes (test code = Lymphocytes) 17.2 20.0-40.0 [facility] CampusZwdxbjnACVIYYEVLW8727-93-53 09:07:00 Test Item Value Reference Range Interpretation Comments Monocytes (test code = Monocytes) 8.8 2.0-12.0 [place] 325412-07-27 09:07:00 Test Item Value Reference Range Interpretation Comments Neutrophils # (test code = Neutrophils 5.3 1.5-8.1 #) [place] 325412-07-27 09:07:00 Test Item Value Reference Range Interpretation Comments Lymphocytes # (test code = Lymphocytes 1.2 1.0-5.5 #) [place] 325412-07-27 09:07:00 Test Item Value Reference Range Interpretation Comments Monocytes # (test code 0.6 See_Comment [Aut omated message] The = Monocytes #) system which generated this result tra nsmitted reference range : <=0.8. The reference r hugo was not used to int erpret this result as normal/abnormal . [place] 325412-07-27 09:07:00 Test Item Value Reference Range Interpretation Comments Microcyte (test code = 1+ *ABN*(06/15/22 Microcyte) 4:07 AM) [place] 480482-07-27 09:07:00 Test Item Value Reference Range Interpretation Comments Glucose Lvl (test code = Glucose Lvl) 108 70-99 [place] 480482-07-27 09:07:00 Test Item Value Reference Range Interpretation Comments BUN (test code = BUN) 29 - [place] 480482-07-27 09:07:00 Test Item Value Reference Range Interpretation Comments Creatinine Lvl (test code = Creatinine 0.94 0.50-1.40 Lvl) [place] 480482-07-27 09:07:00 Test Item Value Reference Range Interpretation Comments Sodium Lvl (test code = Sodium Lvl) 131 135-145 [place] 480482-07-27 09:07:00 Test Item Value Reference Range Interpretation Comments Potassium Lvl (test code = Potassium 3.2 3.5-5.1 Lvl) [place] 480482-07-27 09:07:00 Test Item Value Reference Range Interpretation Comments Chloride Lvl (test code = Chloride Lvl) 93 95-109 [place] 480482-07-27 09:07:00 Test Item Value Reference Range Interpretation Comments CO2 (test code = CO2) 31 24-32 [place] 480482-07-27 09:07:00 Test Item Value Reference Range Interpretation Comments Calcium Lvl (test code = Calcium Lvl) 8.0 8.5-10.5 [facility] [id number] 09:07:00 Test Item Value Reference Range Interpretation Comments Total Protein (test code = Total 5.7 6.4-8.4 Protein) [place] 480482-07-27 09:07:00 Test Item Value Reference Range Interpretation Comments Albumin Lvl (test code = Albumin Lvl) 2.6 3.5-5.0 [facility] [id number] 09:07:00 Test Item Value Reference Range Interpretation Comments ALT (test code = ALT) 18 See_Comment [Auto mated message] The system which ge nerated this result transmit lavon reference range : <=65. The reference range was not used to interpr et this result as dionne l/abnormal. [facility] HospitalLiquidTalk [id number] 09:07:00 Test Item Value Reference Range Interpretation Comments AST (test code = AST) 28 See_Comment [Auto mated message] The system which ge nerated this result transmit lavon reference range : <=37. The reference range was not used to interpr et this result as dionne l/abnormal. [facility] [id number] 09:07:00 Test Item Value Reference Range Interpretation Comments Alk Phos (test code = Alk Phos) 44 39-136 [facility] [id number] 09:07:00 Test Item Value Reference Range Interpretation Comments Bili Total (test code = Bili Total) 1.1 0.2-1.3 [facility] [id number] 09:07:00 Test Item Value Reference Range Interpretation Comments AGAP (test code = AGAP) 10.2 10.0-20.0 [facility] [id number] 09:07:00 Test Item Value Reference Range Interpretation Comments B/C Ratio (test code = B/C Ratio) 31 1 6-25 [facility] [id number] 09:07:00 Test Item Value Reference Range Interpretation Comments Globulin (test code = Globulin) 3.1 2.7-4.2 [facility] [id number] 09:07:00 Test Item Value Reference Range Interpretation Comments A/G Ratio (test code = A/G Ratio) 0.8 1 0.7-1.6 [facility] [id number] 09:07:00 Test Item Value Reference Range Interpretation Comments eGFR (test code = eGFR) 59 [facility] CampusEzwrdofRUNZZDQQPV2948-32-83 09:07:00 Test Item Value Reference Range Interpretation Comments WBC (test code = WBC) 7.2 3.7-10.4 [place] 325412-07-27 09:07:00 Test Item Value Reference Range Interpretation Comments RBC (test code = RBC) 3.06 4.20-5.40 [place] 325412-07-27 09:07:00 Test Item Value Reference Range Interpretation Comments Hgb (test code = Hgb) 7.4 12.0-16.0 [place] 325412-07-27 09:07:00 Test Item Value Reference Range Interpretation Comments Hct (test code = Hct) 22.5 36.0-48.0 [place] 325412-07-27 09:07:00 Test Item Value Reference Range Interpretation Comments MCV (test code = MCV) 73.6 80.0-98.0 [place] 325412-07-27 09:07:00 Test Item Value Reference Range Interpretation Comments MCH (test code = MCH) 24.2 pg 27.0-31.0 [facility] CampusNxjouncCUEEOJQCHX5032-43-96 09:07:00 Test Item Value Reference Range Interpretation Comments MCHC (test code = MCHC) 32.9 32.0-36.0 [facility] CampusUbbasbhYPPDEDUOOB2729-56-46 09:07:00 Test Item Value Reference Range Interpretation Comments RDW (test code = RDW) 20.8 11.5-14.5 [place] 325412-07-27 09:07:00 Test Item Value Reference Range Interpretation Comments Platelet (test code = Platelet) 286 133-450 [facility] CampusUmpylbwWRHEGDQWBU4214-23-95 09:07:00 Test Item Value Reference Range Interpretation Comments MPV (test code = MPV) 7.4 7.4-10.4 [place] 325412-07-27 09:07:00 Test Item Value Reference Range Interpretation Comments Segs (test code = Segs) 73.8 45.0-75.0 [place] 325412-07-27 09:07:00 Test Item Value Reference Range Interpretation Comments Lymphocytes (test code = Lymphocytes) 17.2 20.0-40.0 [place] 325412-07-27 09:07:00 Test Item Value Reference Range Interpretation Comments Monocytes (test code = Monocytes) 8.8 2.0-12.0 [place] 325412-07-27 09:07:00 Test Item Value Reference Range Interpretation Comments Neutrophils # (test code = Neutrophils 5.3 1.5-8.1 #) [place] 325412-07-27 09:07:00 Test Item Value Reference Range Interpretation Comments Lymphocytes # (test code = Lymphocytes 1.2 1.0-5.5 #) [place] [address]-07-27 09:07:00 Test Item Value Reference Range Interpretation Comments Monocytes # (test code 0.6 See_Comment [Aut omated message] The = Monocytes #) system which generated this result tra nsmitted reference range : <=0.8. The reference r hugo was not used to int erpret this result as normal/abnormal . [place] 325412-07-27 09:07:00 Test Item Value Reference Range Interpretation Comments Microcyte (test code = 1+ *ABN*(06/15/22 Microcyte) 4:07 AM) [place] 480482-07-27 09:07:00 Test Item Value Reference Range Interpretation Comments Glucose Lvl (test code = Glucose Lvl) 108 70-99 [facility]2022-07-27 09:07:00 Test Item Value Reference Range Interpretation Comments BUN (test code = BUN) 29 -22 [place] 480482-07-27 09:07:00 Test Item Value Reference Range Interpretation Comments Creatinine Lvl (test code = Creatinine 0.94 0.50-1.40 Lvl) [place] 480482-07-27 09:07:00 Test Item Value Reference Range Interpretation Comments Sodium Lvl (test code = Sodium Lvl) 131 135-145 [place] 480482-07-27 09:07:00 Test Item Value Reference Range Interpretation Comments Potassium Lvl (test code = Potassium 3.2 3.5-5.1 Lvl) [place] 480482-07-27 09:07:00 Test Item Value Reference Range Interpretation Comments Chloride Lvl (test code = Chloride Lvl) 93 95-109 [place] 480482-07-27 09:07:00 Test Item Value Reference Range Interpretation Comments CO2 (test code = CO2) 31 24-32 [place] 480482-07-27 09:07:00 Test Item Value Reference Range Interpretation Comments Calcium Lvl (test code = Calcium Lvl) 8.0 8.5-10.5 [place] 480482-07-27 09:07:00 Test Item Value Reference Range Interpretation Comments Total Protein (test code = Total 5.7 6.4-8.4 Protein) [place] 480482-07-27 09:07:00 Test Item Value Reference Range Interpretation Comments Albumin Lvl (test code = Albumin Lvl) 2.6 3.5-5.0 [place] 480482-07-27 09:07:00 Test Item Value Reference Range Interpretation Comments ALT (test code = ALT) 18 See_Comment [Auto mated message] The system which ge nerated this result transmit lavon reference range : <=65. The reference range was not used to interpr et this result as dionne l/abnormal. [place] 480482-07-27 09:07:00 Test Item Value Reference Range Interpretation Comments AST (test code = AST) 28 See_Comment [Auto mated message] The system which ge nerated this result transmit lavon reference range : <=37. The reference range was not used to interpr et this result as dionne l/abnormal. [place] 480482-07-27 09:07:00 Test Item Value Reference Range Interpretation Comments Alk Phos (test code = Alk Phos) 44 39-136 [place] 480482-07-27 09:07:00 Test Item Value Reference Range Interpretation Comments Bili Total (test code = Bili Total) 1.1 0.2-1.3 [place] 480482-07-27 09:07:00 Test Item Value Reference Range Interpretation Comments AGAP (test code = AGAP) 10.2 10.0-20.0 [place] 480482-07-27 09:07:00 Test Item Value Reference Range Interpretation Comments B/C Ratio (test code = B/C Ratio) 31 1 6-25 [place] 480482-07-27 09:07:00 Test Item Value Reference Range Interpretation Comments Globulin (test code = Globulin) 3.1 2.7-4.2 [facility] [id number] 09:07:00 Test Item Value Reference Range Interpretation Comments A/G Ratio (test code = A/G Ratio) 0.8 1 0.7-1.6 [facility] [id number] 09:07:00 Test Item Value Reference Range Interpretation Comments eGFR (test code = eGFR) 59 [facility] CampusAvuozwaNMMEDWCUYA0885-13-50 09:07:00 Test Item Value Reference Range Interpretation Comments WBC (test code = WBC) 7.2 3.7-10.4 [facility] CampusMxyjjniQGKPLFGEKN7877-11-84 09:07:00 Test Item Value Reference Range Interpretation Comments RBC (test code = RBC) 3.06 4.20-5.40 [facility] CampusFumfjuhNLUVOFAKSE4954-63-43 09:07:00 Test Item Value Reference Range Interpretation Comments Hgb (test code = Hgb) 7.4 12.0-16.0 [facility] CampusMfucwetHPSEHAIQAK6310-56-29 09:07:00 Test Item Value Reference Range Interpretation Comments Hct (test code = Hct) 22.5 36.0-48.0 [facility] CampusCogrbweCUUOJKQWQU7213-50-78 09:07:00 Test Item Value Reference Range Interpretation Comments MCV (test code = MCV) 73.6 80.0-98.0 [facility] CampusBadajwdGAUTSEDWCS2350-18-18 09:07:00 Test Item Value Reference Range Interpretation Comments MCH (test code = MCH) 24.2 pg 27.0-31.0 [facility] CampusKzntgvaWSYJSXEIJM2320-60-30 09:07:00 Test Item Value Reference Range Interpretation Comments MCHC (test code = MCHC) 32.9 32.0-36.0 [facility] CampusEejdcuoTMCVQSHARK3451-86-29 09:07:00 Test Item Value Reference Range Interpretation Comments RDW (test code = RDW) 20.8 11.5-14.5 [facility] CampusZtozvfwZYDMEGALCK0247-59-67 09:07:00 Test Item Value Reference Range Interpretation Comments Platelet (test code = Platelet) 286 133-450 [facility] CampusHuxzkepSHYGFWETDJ6472-69-26 09:07:00 Test Item Value Reference Range Interpretation Comments MPV (test code = MPV) 7.4 7.4-10.4 [place] 325412-07-27 09:07:00 Test Item Value Reference Range Interpretation Comments Segs (test code = Segs) 73.8 45.0-75.0 [place] 325412-07-27 09:07:00 Test Item Value Reference Range Interpretation Comments Lymphocytes (test code = Lymphocytes) 17.2 20.0-40.0 [place] 325412-07-27 09:07:00 Test Item Value Reference Range Interpretation Comments Monocytes (test code = Monocytes) 8.8 2.0-12.0 [place] 325412-07-27 09:07:00 Test Item Value Reference Range Interpretation Comments Neutrophils # (test code = Neutrophils 5.3 1.5-8.1 #) [place] 325412-07-27 09:07:00 Test Item Value Reference Range Interpretation Comments Lymphocytes # (test code = Lymphocytes 1.2 1.0-5.5 #) [place] 325412-07-27 09:07:00 Test Item Value Reference Range Interpretation Comments Monocytes # (test code 0.6 See_Comment [Aut omated message] The = Monocytes #) system which generated this result tra nsmitted reference range : <=0.8. The reference r hugo was not used to int erpret this result as normal/abnormal . [place] 325412-07-27 09:07:00 Test Item Value Reference Range Interpretation Comments Microcyte (test code = 1+ *ABN*(06/15/22 Microcyte) 4:07 AM) [place] 480482-07-27 09:07:00 Test Item Value Reference Range Interpretation Comments Glucose Lvl (test code = Glucose Lvl) 108 70-99 [place] 480482-07-27 09:07:00 Test Item Value Reference Range Interpretation Comments BUN (test code = BUN) 29 7-22 [place] 480482-07-27 09:07:00 Test Item Value Reference Range Interpretation Comments Creatinine Lvl (test code = Creatinine 0.94 0.50-1.40 Lvl) [place] 480482-07-27 09:07:00 Test Item Value Reference Range Interpretation Comments Sodium Lvl (test code = Sodium Lvl) 131 135-145 [place] 480482-07-27 09:07:00 Test Item Value Reference Range Interpretation Comments Potassium Lvl (test code = Potassium 3.2 3.5-5.1 Lvl) [place] 480482-07-27 09:07:00 Test Item Value Reference Range Interpretation Comments Chloride Lvl (test code = Chloride Lvl) 93 95-109 [place] 24489-07-27 09:07:00 Test Item Value Reference Range Interpretation Comments CO2 (test code = CO2) 31 24-32 [place] 480482-07-27 09:07:00 Test Item Value Reference Range Interpretation Comments Calcium Lvl (test code = Calcium Lvl) 8.0 8.5-10.5 [place] 244[address]-07-27 09:07:00 Test Item Value Reference Range Interpretation Comments Total Protein (test code = Total 5.7 6.4-8.4 Protein) [place] 244[address]-07-27 09:07:00 Test Item Value Reference Range Interpretation Comments Albumin Lvl (test code = Albumin Lvl) 2.6 3.5-5.0 [place] 480482-07-27 09:07:00 Test Item Value Reference Range Interpretation Comments ALT (test code = ALT) 18 See_Comment [Auto mated message] The system which ge nerated this result transmit lavon reference range : <=65. The reference range was not used to interpr et this result as dionne l/abnormal. [place] 244[address]-07-27 09:07:00 Test Item Value Reference Range Interpretation Comments AST (test code = AST) 28 See_Comment [Auto mated message] The system which ge nerated this result transmit lavon reference range : <=37. The reference range was not used to interpr et this result as dionne l/abnormal. [place] 480482-07-27 09:07:00 Test Item Value Reference Range Interpretation Comments Alk Phos (test code = Alk Phos) 44 39-136 [place] 244[address]-07-27 09:07:00 Test Item Value Reference Range Interpretation Comments Bili Total (test code = Bili Total) 1.1 0.2-1.3 [place] 244[address]-07-27 09:07:00 Test Item Value Reference Range Interpretation Comments AGAP (test code = AGAP) 10.2 10.0-20.0 [facility]2022-07-27 09:07:00 Test Item Value Reference Range Interpretation Comments B/C Ratio (test code = B/C Ratio) 31 1 6-25 [place] 480482-07-27 09:07:00 Test Item Value Reference Range Interpretation Comments Globulin (test code = Globulin) 3.1 2.7-4.2 [place] 480482-07-27 09:07:00 Test Item Value Reference Range Interpretation Comments A/G Ratio (test code = A/G Ratio) 0.8 1 0.7-1.6 [place] 480482-07-27 09:07:00 Test Item Value Reference Range Interpretation Comments eGFR (test code = eGFR) 59 [place] 325412-07-27 09:07:00 Test Item Value Reference Range Interpretation Comments WBC (test code = WBC) 7.2 3.7-10.4 [place] 325412-07-27 09:07:00 Test Item Value Reference Range Interpretation Comments RBC (test code = RBC) 3.06 4.20-5.40 [facility] CampusOkfdjcrTYGPWLSVDZ5456-45-55 09:07:00 Test Item Value Reference Range Interpretation Comments Hgb (test code = Hgb) 7.4 12.0-16.0 [facility] CampusYsivrzuQTEFTBNJEK2230-58-61 09:07:00 Test Item Value Reference Range Interpretation Comments Hct (test code = Hct) 22.5 36.0-48.0 [place] 325412-07-27 09:07:00 Test Item Value Reference Range Interpretation Comments MCV (test code = MCV) 73.6 80.0-98.0 [place] 325412-07-27 09:07:00 Test Item Value Reference Range Interpretation Comments MCH (test code = MCH) 24.2 pg 27.0-31.0 [place] 325412-07-27 09:07:00 Test Item Value Reference Range Interpretation Comments MCHC (test code = MCHC) 32.9 32.0-36.0 [place] 325412-07-27 09:07:00 Test Item Value Reference Range Interpretation Comments RDW (test code = RDW) 20.8 11.5-14.5 [place] 325412-07-27 09:07:00 Test Item Value Reference Range Interpretation Comments Platelet (test code = Platelet) 286 133-450 [place] 325412-07-27 09:07:00 Test Item Value Reference Range Interpretation Comments MPV (test code = MPV) 7.4 7.4-10.4 [place] 325412-07-27 09:07:00 Test Item Value Reference Range Interpretation Comments Segs (test code = Segs) 73.8 45.0-75.0 [place] 325412-07-27 09:07:00 Test Item Value Reference Range Interpretation Comments Lymphocytes (test code = Lymphocytes) 17.2 20.0-40.0 [place] 325412-07-27 09:07:00 Test Item Value Reference Range Interpretation Comments Monocytes (test code = Monocytes) 8.8 2.0-12.0 [place] 325412-07-27 09:07:00 Test Item Value Reference Range Interpretation Comments Neutrophils # (test code = Neutrophils 5.3 1.5-8.1 #) [place] 325412-07-27 09:07:00 Test Item Value Reference Range Interpretation Comments Lymphocytes # (test code = Lymphocytes 1.2 1.0-5.5 #) [place] 325412-07-27 09:07:00 Test Item Value Reference Range Interpretation Comments Monocytes # (test code 0.6 See_Comment [Aut omated message] The = Monocytes #) system which generated this result tra nsmitted reference range : <=0.8. The reference r hugo was not used to int erpret this result as normal/abnormal . [facility]FqwprsyRCTXVSFJJT8777-07-[facility] 09:07:00 Test Item Value Reference Range Interpretation Comments Microcyte (test code = 1+ *ABN*(06/15/22 Microcyte) 4:07 AM) [place] 480482-07-27 09:07:00 Test Item Value Reference Range Interpretation Comments Glucose Lvl (test code = Glucose Lvl) 108 70-99 [place] 480482-07-27 09:07:00 Test Item Value Reference Range Interpretation Comments BUN (test code = BUN) 29 -22 [place] 480482-07-27 09:07:00 Test Item Value Reference Range Interpretation Comments Creatinine Lvl (test code = Creatinine 0.94 0.50-1.40 Lvl) [place] 480482-07-27 09:07:00 Test Item Value Reference Range Interpretation Comments Sodium Lvl (test code = Sodium Lvl) 131 135-145 [place] 480482-07-27 09:07:00 Test Item Value Reference Range Interpretation Comments Potassium Lvl (test code = Potassium 3.2 3.5-5.1 Lvl) [place] 480482-07-27 09:07:00 Test Item Value Reference Range Interpretation Comments Chloride Lvl (test code = Chloride Lvl) 93 95-109 [place] 480482-07-27 09:07:00 Test Item Value Reference Range Interpretation Comments CO2 (test code = CO2) 31 24-32 [place] 480482-07-27 09:07:00 Test Item Value Reference Range Interpretation Comments Calcium Lvl (test code = Calcium Lvl) 8.0 8.5-10.5 [place] 480482-07-27 09:07:00 Test Item Value Reference Range Interpretation Comments Total Protein (test code = Total 5.7 6.4-8.4 Protein) [place] 480482-07-27 09:07:00 Test Item Value Reference Range Interpretation Comments Albumin Lvl (test code = Albumin Lvl) 2.6 3.5-5.0 [place] 480482-07-27 09:07:00 Test Item Value Reference Range Interpretation Comments ALT (test code = ALT) 18 See_Comment [Auto mated message] The system which Neuro[employer] nerated this result transmit lavon reference range : <=65. The reference range was not used to interpr et this result as dionne l/abnormal. [facility] [id number] 09:07:00 Test Item Value Reference Range Interpretation Comments AST (test code = AST) 28 See_Comment [Auto mated message] The system which Neuro[employer] nerated this result transmit lavon reference range : <=37. The reference range was not used to interpr et this result as dionne l/abnormal. [place] 480482-07-27 09:07:00 Test Item Value Reference Range Interpretation Comments Alk Phos (test code = Alk Phos) 44 39-136 [facility] [id number] 09:07:00 Test Item Value Reference Range Interpretation Comments Bili Total (test code = Bili Total) 1.1 0.2-1.3 [place] 480482-07-27 09:07:00 Test Item Value Reference Range Interpretation Comments AGAP (test code = AGAP) 10.2 10.0-20.0 [place] 480482-07-27 09:07:00 Test Item Value Reference Range Interpretation Comments B/C Ratio (test code = B/C Ratio) 31 1 6-25 [place] 480482-07-27 09:07:00 Test Item Value Reference Range Interpretation Comments Globulin (test code = Globulin) 3.1 2.7-4.2 [place] 480482-07-27 09:07:00 Test Item Value Reference Range Interpretation Comments A/G Ratio (test code = A/G Ratio) 0.8 1 0.7-1.6 [place] 480482-07-27 09:07:00 Test Item Value Reference Range Interpretation Comments eGFR (test code = eGFR) 59 [facility] CampusXhdbevkLBGKQONUJH2538-41-65 09:07:00 Test Item Value Reference Range Interpretation Comments WBC (test code = WBC) 7.2 3.7-10.4 [place] 325412-07-27 09:07:00 Test Item Value Reference Range Interpretation Comments RBC (test code = RBC) 3.06 4.20-5.40 [place] 325412-07-27 09:07:00 Test Item Value Reference Range Interpretation Comments Hgb (test code = Hgb) 7.4 12.0-16.0 [place] [address]-07-27 09:07:00 Test Item Value Reference Range Interpretation Comments Hct (test code = Hct) 22.5 36.0-48.0 [place] 325412-07-27 09:07:00 Test Item Value Reference Range Interpretation Comments MCV (test code = MCV) 73.6 80.0-98.0 [place] 325412-07-27 09:07:00 Test Item Value Reference Range Interpretation Comments MCH (test code = MCH) 24.2 pg 27.0-31.0 [place] 325412-07-27 09:07:00 Test Item Value Reference Range Interpretation Comments MCHC (test code = MCHC) 32.9 32.0-36.0 [place] 325412-07-27 09:07:00 Test Item Value Reference Range Interpretation Comments RDW (test code = RDW) 20.8 11.5-14.5 [place] 325412-07-27 09:07:00 Test Item Value Reference Range Interpretation Comments Platelet (test code = Platelet) 286 133-450 [facility] CampusOnbnsqbIERXLEBUZA0884-38-23 09:07:00 Test Item Value Reference Range Interpretation Comments MPV (test code = MPV) 7.4 7.4-10.4 [place] 325412-07-27 09:07:00 Test Item Value Reference Range Interpretation Comments Segs (test code = Segs) 73.8 45.0-75.0 [place] 325412-07-27 09:07:00 Test Item Value Reference Range Interpretation Comments Lymphocytes (test code = Lymphocytes) 17.2 20.0-40.0 [place] 325412-07-27 09:07:00 Test Item Value Reference Range Interpretation Comments Monocytes (test code = Monocytes) 8.8 2.0-12.0 [facility] CampusRicoakuHQRBSYYGRQ8243-77-83 09:07:00 Test Item Value Reference Range Interpretation Comments Neutrophils # (test code = Neutrophils 5.3 1.5-8.1 #) [facility] CampusRmfflkbODFNDXHOPF0142-31-42 09:07:00 Test Item Value Reference Range Interpretation Comments Lymphocytes # (test code = Lymphocytes 1.2 1.0-5.5 #) [place] 325412-07-27 09:07:00 Test Item Value Reference Range Interpretation Comments Monocytes # (test code 0.6 See_Comment [Aut omated message] The = Monocytes #) system which generated this result tra nsmitted reference range : <=0.8. The reference r hugo was not used to int erpret this result as normal/abnormal . [facility] CampusScbkrofENVVHBUOVI6680-65-79 09:07:00 Test Item Value Reference Range Interpretation Comments Microcyte (test code = 1+ *ABN*(06/15/22 Microcyte) 4:07 AM) [facility]2022-07-27 09:07:00 Test Item Value Reference Range Interpretation Comments Glucose Lvl (test code = Glucose Lvl) 108 70-99 [place] 480482-07-27 09:07:00 Test Item Value Reference Range Interpretation Comments BUN (test code = BUN) 29 7-22 [place] 480482-07-27 09:07:00 Test Item Value Reference Range Interpretation Comments Creatinine Lvl (test code = Creatinine 0.94 0.50-1.40 Lvl) [place] [address]-07-27 09:07:00 Test Item Value Reference Range Interpretation Comments Sodium Lvl (test code = Sodium Lvl) 131 135-145 [place] 480482-07-27 09:07:00 Test Item Value Reference Range Interpretation Comments Potassium Lvl (test code = Potassium 3.2 3.5-5.1 Lvl) [place] [address]-07-27 09:07:00 Test Item Value Reference Range Interpretation Comments Chloride Lvl (test code = Chloride Lvl) 93 95-109 [place] 480482-07-27 09:07:00 Test Item Value Reference Range Interpretation Comments CO2 (test code = CO2) 31 24-32 [place] 480482-07-27 09:07:00 Test Item Value Reference Range Interpretation Comments Calcium Lvl (test code = Calcium Lvl) 8.0 8.5-10.5 [place] 480482-07-27 09:07:00 Test Item Value Reference Range Interpretation Comments Total Protein (test code = Total 5.7 6.4-8.4 Protein) [place] [address]-07-27 09:07:00 Test Item Value Reference Range Interpretation Comments Albumin Lvl (test code = Albumin Lvl) 2.6 3.5-5.0 [place] [address]-07-27 09:07:00 Test Item Value Reference Range Interpretation Comments ALT (test code = ALT) 18 See_Comment [Auto mated message] The system which ge nerated this result transmit lavon reference range : <=65. The reference range was not used to interpr et this result as dionne l/abnormal. [place] 480482-07-27 09:07:00 Test Item Value Reference Range Interpretation Comments AST (test code = AST) 28 See_Comment [Auto mated message] The system which ge nerated this result transmit lavon reference range : <=37. The reference range was not used to interpr et this result as dionne l/abnormal. [place] 480482-07-27 09:07:00 Test Item Value Reference Range Interpretation Comments Alk Phos (test code = Alk Phos) 44 39-136 [place] 480482-07-27 09:07:00 Test Item Value Reference Range Interpretation Comments Bili Total (test code = Bili Total) 1.1 0.2-1.3 [place] 480482-07-27 09:07:00 Test Item Value Reference Range Interpretation Comments AGAP (test code = AGAP) 10.2 10.0-20.0 [place] 480482-07-27 09:07:00 Test Item Value Reference Range Interpretation Comments B/C Ratio (test code = B/C Ratio) 31 1 6-25 [place] 480482-07-27 09:07:00 Test Item Value Reference Range Interpretation Comments Globulin (test code = Globulin) 3.1 2.7-4.2 [place] 480482-07-27 09:07:00 Test Item Value Reference Range Interpretation Comments A/G Ratio (test code = A/G Ratio) 0.8 1 0.7-1.6 [place] 480482-07-27 09:07:00 Test Item Value Reference Range Interpretation Comments eGFR (test code = eGFR) 59 [place] 325412-07-27 09:07:00 Test Item Value Reference Range Interpretation Comments WBC (test code = WBC) 7.2 3.7-10.4 [place] 325412-07-27 09:07:00 Test Item Value Reference Range Interpretation Comments RBC (test code = RBC) 3.06 4.20-5.40 [place] 325412-07-27 09:07:00 Test Item Value Reference Range Interpretation Comments Hgb (test code = Hgb) 7.4 12.0-16.0 [place] [address]-07-27 09:07:00 Test Item Value Reference Range Interpretation Comments Hct (test code = Hct) 22.5 36.0-48.0 [place] 325412-07-27 09:07:00 Test Item Value Reference Range Interpretation Comments MCV (test code = MCV) 73.6 80.0-98.0 [facility] CampusKawyiyhCQTKJLRWQT7826-68-73 09:07:00 Test Item Value Reference Range Interpretation Comments MCH (test code = MCH) 24.2 pg 27.0-31.0 [facility] CampusIcxmiscOFGWIMKFOG8695-15-77 09:07:00 Test Item Value Reference Range Interpretation Comments MCHC (test code = MCHC) 32.9 32.0-36.0 [facility] CampusEomjmqaHPPOEUGRIK3710-66-73 09:07:00 Test Item Value Reference Range Interpretation Comments RDW (test code = RDW) 20.8 11.5-14.5 [place] 325412-07-27 09:07:00 Test Item Value Reference Range Interpretation Comments Platelet (test code = Platelet) 286 133-450 [facility] CampusHvavnosSYNVFUVPKN8877-80-78 09:07:00 Test Item Value Reference Range Interpretation Comments MPV (test code = MPV) 7.4 7.4-10.4 [facility] CampusPlaxaiaDAWNPPYDDY7900-34-60 09:07:00 Test Item Value Reference Range Interpretation Comments Segs (test code = Segs) 73.8 45.0-75.0 [facility] CampusFiepwxxKENDEFKMDM1946-95-17 09:07:00 Test Item Value Reference Range Interpretation Comments Lymphocytes (test code = Lymphocytes) 17.2 20.0-40.0 [facility] CampusBslmuboFDBWGUHBZM6769-47-77 09:07:00 Test Item Value Reference Range Interpretation Comments Monocytes (test code = Monocytes) 8.8 2.0-12.0 [facility] CampusMgckdafDMJCVEOSCD1563-60-91 09:07:00 Test Item Value Reference Range Interpretation Comments Neutrophils # (test code = Neutrophils 5.3 1.5-8.1 #) [facility] CampusZzvbohtTMHENZQPTE3846-14-04 09:07:00 Test Item Value Reference Range Interpretation Comments Lymphocytes # (test code = Lymphocytes 1.2 1.0-5.5 #) [place] 325412-07-27 09:07:00 Test Item Value Reference Range Interpretation Comments Monocytes # (test code 0.6 See_Comment [Aut omated message] The = Monocytes #) system which generated this result tra nsmitted reference range : <=0.8. The reference r hugo was not used to int erpret this result as normal/abnormal . [place] 325412-07-27 09:07:00 Test Item Value Reference Range Interpretation Comments Microcyte (test code = 1+ *ABN*(06/15/22 Microcyte) 4:07 AM) [place] [address]-07-27 09:07:00 Test Item Value Reference Range Interpretation Comments Glucose Lvl (test code = Glucose Lvl) 108 70-99 [place] [address]-07-27 09:07:00 Test Item Value Reference Range Interpretation Comments BUN (test code = BUN) 29 - [place] 480482-07-27 09:07:00 Test Item Value Reference Range Interpretation Comments Creatinine Lvl (test code = Creatinine 0.94 0.50-1.40 Lvl) [place] 480482-07-27 09:07:00 Test Item Value Reference Range Interpretation Comments Sodium Lvl (test code = Sodium Lvl) 131 135-145 [place] 480482-07-27 09:07:00 Test Item Value Reference Range Interpretation Comments Potassium Lvl (test code = Potassium 3.2 3.5-5.1 Lvl) [place] 480482-07-27 09:07:00 Test Item Value Reference Range Interpretation Comments Chloride Lvl (test code = Chloride Lvl) 93 95-109 [place] 480482-07-27 09:07:00 Test Item Value Reference Range Interpretation Comments CO2 (test code = CO2) 31 24-32 [place] 480482-07-27 09:07:00 Test Item Value Reference Range Interpretation Comments Calcium Lvl (test code = Calcium Lvl) 8.0 8.5-10.5 [place] 480482-07-27 09:07:00 Test Item Value Reference Range Interpretation Comments Total Protein (test code = Total 5.7 6.4-8.4 Protein) [place] 480482-07-27 09:07:00 Test Item Value Reference Range Interpretation Comments Albumin Lvl (test code = Albumin Lvl) 2.6 3.5-5.0 [place] 480482-07-27 09:07:00 Test Item Value Reference Range Interpretation Comments ALT (test code = ALT) 18 See_Comment [Auto mated message] The system which ge nerated this result transmit lavon reference range : <=65. The reference range was not used to interpr et this result as dionne l/abnormal. [place] 480482-07-27 09:07:00 Test Item Value Reference Range Interpretation Comments AST (test code = AST) 28 See_Comment [Auto mated message] The system which ge nerated this result transmit lavon reference range : <=37. The reference range was not used to interpr et this result as dionne l/abnormal. [place] 480482-07-27 09:07:00 Test Item Value Reference Range Interpretation Comments Alk Phos (test code = Alk Phos) 44 39-136 [place] 480482-07-27 09:07:00 Test Item Value Reference Range Interpretation Comments Bili Total (test code = Bili Total) 1.1 0.2-1.3 [place] 480482-07-27 09:07:00 Test Item Value Reference Range Interpretation Comments AGAP (test code = AGAP) 10.2 10.0-20.0 [place] 480482-07-27 09:07:00 Test Item Value Reference Range Interpretation Comments B/C Ratio (test code = B/C Ratio) 31 1 6-25 [place] 480482-07-27 09:07:00 Test Item Value Reference Range Interpretation Comments Globulin (test code = Globulin) 3.1 2.7-4.2 [place] 480482-07-27 09:07:00 Test Item Value Reference Range Interpretation Comments A/G Ratio (test code = A/G Ratio) 0.8 1 0.7-1.6 [place] 480482-07-27 09:07:00 Test Item Value Reference Range Interpretation Comments eGFR (test code = eGFR) 59 [place] 325412-07-27 09:07:00 Test Item Value Reference Range Interpretation Comments WBC (test code = WBC) 7.2 3.7-10.4 [place] [address]-07-27 09:07:00 Test Item Value Reference Range Interpretation Comments RBC (test code = RBC) 3.06 4.20-5.40 [place] 325412-07-27 09:07:00 Test Item Value Reference Range Interpretation Comments Hgb (test code = Hgb) 7.4 12.0-16.0 [place] [address]-07-27 09:07:00 Test Item Value Reference Range Interpretation Comments Hct (test code = Hct) 22.5 36.0-48.0 [facility] CampusCyvfuiuDPXVPGUQLD5547-63-57 09:07:00 Test Item Value Reference Range Interpretation Comments MCV (test code = MCV) 73.6 80.0-98.0 [facility] CampusXiwpctoUXNUGVZMOL8197-05-86 09:07:00 Test Item Value Reference Range Interpretation Comments MCH (test code = MCH) 24.2 pg 27.0-31.0 [facility] CampusTpbxrddANUPKEFVCS9962-22-61 09:07:00 Test Item Value Reference Range Interpretation Comments MCHC (test code = MCHC) 32.9 32.0-36.0 [facility] CampusTlzujswBDSRJXOHBQ9370-06-47 09:07:00 Test Item Value Reference Range Interpretation Comments RDW (test code = RDW) 20.8 11.5-14.5 [place] 325412-07-27 09:07:00 Test Item Value Reference Range Interpretation Comments Platelet (test code = Platelet) 286 133-450 [facility] CampusRyjzjyvQZFFHMWGUJ9705-06-59 09:07:00 Test Item Value Reference Range Interpretation Comments MPV (test code = MPV) 7.4 7.4-10.4 [facility] CampusRhlusqzYOMKDBFZXX2764-46-77 09:07:00 Test Item Value Reference Range Interpretation Comments Segs (test code = Segs) 73.8 45.0-75.0 [facility] CampusOosivqhZOMRTACWIR7940-37-08 09:07:00 Test Item Value Reference Range Interpretation Comments Lymphocytes (test code = Lymphocytes) 17.2 20.0-40.0 [facility] CampusDrmwndbVXAVNYSEJR8617-86-64 09:07:00 Test Item Value Reference Range Interpretation Comments Monocytes (test code = Monocytes) 8.8 2.0-12.0 [place] 325412-07-27 09:07:00 Test Item Value Reference Range Interpretation Comments Neutrophils # (test code = Neutrophils 5.3 1.5-8.1 #) [facility] CampusSikrearAWAHVUDKRR6317-28-34 09:07:00 Test Item Value Reference Range Interpretation Comments Lymphocytes # (test code = Lymphocytes 1.2 1.0-5.5 #) [facility] CampusKvirlqgHXVCXFJXVT7477-28-95 09:07:00 Test Item Value Reference Range Interpretation Comments Monocytes # (test code 0.6 See_Comment [Aut omated message] The = Monocytes #) system which generated this result tra nsmitted reference range : <=0.8. The reference r hugo was not used to int erpret this result as normal/abnormal . [facility] CampusWvhrihyYOPEGTCMUK6269-06-90 09:07:00 Test Item Value Reference Range Interpretation Comments Microcyte (test code = 1+ *ABN*(06/15/22 Microcyte) 4:07 AM) [place] 480482-07-27 09:07:00 Test Item Value Reference Range Interpretation Comments Glucose Lvl (test code = Glucose Lvl) 108 70-99 [place] 480482-07-27 09:07:00 Test Item Value Reference Range Interpretation Comments BUN (test code = BUN) 29 - [place] 480482-07-27 09:07:00 Test Item Value Reference Range Interpretation Comments Creatinine Lvl (test code = Creatinine 0.94 0.50-1.40 Lvl) [facility]2022-07-27 09:07:00 Test Item Value Reference Range Interpretation Comments Sodium Lvl (test code = Sodium Lvl) 131 135-145 [place] 480482-07-27 09:07:00 Test Item Value Reference Range Interpretation Comments Potassium Lvl (test code = Potassium 3.2 3.5-5.1 Lvl) [place] 480482-07-27 09:07:00 Test Item Value Reference Range Interpretation Comments Chloride Lvl (test code = Chloride Lvl) 93 95-109 [place] 480482-07-27 09:07:00 Test Item Value Reference Range Interpretation Comments CO2 (test code = CO2) 31 24-32 [place] 480482-07-27 09:07:00 Test Item Value Reference Range Interpretation Comments Calcium Lvl (test code = Calcium Lvl) 8.0 8.5-10.5 [place] 480482-07-27 09:07:00 Test Item Value Reference Range Interpretation Comments Total Protein (test code = Total 5.7 6.4-8.4 Protein) [place] 480482-07-27 09:07:00 Test Item Value Reference Range Interpretation Comments Albumin Lvl (test code = Albumin Lvl) 2.6 3.5-5.0 [facility] [employer] [id number] 09:07:00 Test Item Value Reference Range Interpretation Comments ALT (test code = ALT) 18 See_Comment [Auto mated message] The system which ge nerated this result transmit lavon reference range : <=65. The reference range was not used to interpr et this result as dionne l/abnormal. [facility] [employer] [id number] 09:07:00 Test Item Value Reference Range Interpretation Comments AST (test code = AST) 28 See_Comment [Auto mated message] The system which ge nerated this result transmit lavon reference range : <=37. The reference range was not used to interpr et this result as dionne l/abnormal. [facility] [employer] [id number] 09:07:00 Test Item Value Reference Range Interpretation Comments Alk Phos (test code = Alk Phos) 44 39-136 [facility] [employer] [id number] 09:07:00 Test Item Value Reference Range Interpretation Comments Bili Total (test code = Bili Total) 1.1 0.2-1.3 [facility] [employer] [id number] 09:07:00 Test Item Value Reference Range Interpretation Comments AGAP (test code = AGAP) 10.2 10.0-20.0 [facility] [employer] [id number] 09:07:00 Test Item Value Reference Range Interpretation Comments B/C Ratio (test code = B/C Ratio) 31 1 6-25 [facility] [employer] [id number] 09:07:00 Test Item Value Reference Range Interpretation Comments Globulin (test code = Globulin) 3.1 2.7-4.2 [facility] [employer] [id number] 09:07:00 Test Item Value Reference Range Interpretation Comments A/G Ratio (test code = A/G Ratio) 0.8 1 0.7-1.6 [facility] [employer] [id number] 09:07:00 Test Item Value Reference Range Interpretation Comments eGFR (test code = eGFR) 59 [facility]sl[facility]zwOPOBUEDRVK7605[facility] 09:07:00 Test Item Value Reference Range Interpretation Comments WBC (test code = WBC) 7.2 3.7-10.4 [facility] CenterAiiesfrFRHJUFTEWB3365-12-16 09:07:00 Test Item Value Reference Range Interpretation Comments RBC (test code = RBC) 3.06 4.20-5.40 [facility] CampusXjvtdfqRUKIDNQLNO6910-07-89 09:07:00 Test Item Value Reference Range Interpretation Comments Hgb (test code = Hgb) 7.4 12.0-16.0 [place] 325412-07-27 09:07:00 Test Item Value Reference Range Interpretation Comments Hct (test code = Hct) 22.5 36.0-48.0 [facility] CampusPpvsjceOBSHWYCUQB6101-76-75 09:07:00 Test Item Value Reference Range Interpretation Comments MCV (test code = MCV) 73.6 80.0-98.0 [place] 325412-07-27 09:07:00 Test Item Value Reference Range Interpretation Comments MCH (test code = MCH) 24.2 pg 27.0-31.0 [facility] CampusMrfizrtASOOVHCQTC5539-00-98 09:07:00 Test Item Value Reference Range Interpretation Comments MCHC (test code = MCHC) 32.9 32.0-36.0 [facility] CampusSnnepeyLGKUMBWUTE0045-95-43 09:07:00 Test Item Value Reference Range Interpretation Comments RDW (test code = RDW) 20.8 11.5-14.5 [place] 325412-07-27 09:07:00 Test Item Value Reference Range Interpretation Comments Platelet (test code = Platelet) 286 133-450 [facility] CampusYysbqmwLGUGIRULOY3124-62-11 09:07:00 Test Item Value Reference Range Interpretation Comments MPV (test code = MPV) 7.4 7.4-10.4 [place] 325412-07-27 09:07:00 Test Item Value Reference Range Interpretation Comments Segs (test code = Segs) 73.8 45.0-75.0 [place] 325412-07-27 09:07:00 Test Item Value Reference Range Interpretation Comments Lymphocytes (test code = Lymphocytes) 17.2 20.0-40.0 [facility] C[id number] 09:07:00 Test Item Value Reference Range Interpretation Comments Monocytes (test code = Monocytes) 8.8 2.0-12.0 [place] 325412-07-27 09:07:00 Test Item Value Reference Range Interpretation Comments Neutrophils # (test code = Neutrophils 5.3 1.5-8.1 #) [place] 325412-07-27 09:07:00 Test Item Value Reference Range Interpretation Comments Lymphocytes # (test code = Lymphocytes 1.2 1.0-5.5 #) [facility] [id number] 09:07:00 Test Item Value Reference Range Interpretation Comments Monocytes # (test code 0.6 See_Comment [Aut omated message] The = Monocytes #) system which generated this result tra nsmitted reference range : <=0.8. The reference r hugo was not used to int erpret this result as normal/abnormal . [place] 325412-07-27 09:07:00 Test Item Value Reference Range Interpretation Comments Microcyte (test code = 1+ *ABN*(06/15/22 Microcyte) 4:07 AM) [place] 480482-07-27 09:07:00 Test Item Value Reference Range Interpretation Comments Glucose Lvl (test code = Glucose Lvl) 108 70-99 [place] 480482-07-27 09:07:00 Test Item Value Reference Range Interpretation Comments BUN (test code = BUN) 29 - [place] 480482-07-27 09:07:00 Test Item Value Reference Range Interpretation Comments Creatinine Lvl (test code = Creatinine 0.94 0.50-1.40 Lvl) [place] 480482-07-27 09:07:00 Test Item Value Reference Range Interpretation Comments Sodium Lvl (test code = Sodium Lvl) 131 135-145 [place] 480482-07-27 09:07:00 Test Item Value Reference Range Interpretation Comments Potassium Lvl (test code = Potassium 3.2 3.5-5.1 Lvl) [place] 480482-07-27 09:07:00 Test Item Value Reference Range Interpretation Comments Chloride Lvl (test code = Chloride Lvl) 93 95-109 [place] 480482-07-27 09:07:00 Test Item Value Reference Range Interpretation Comments CO2 (test code = CO2) 31 24-32 [place] 480482-07-27 09:07:00 Test Item Value Reference Range Interpretation Comments Calcium Lvl (test code = Calcium Lvl) 8.0 8.5-10.5 [place] 480482-07-27 09:07:00 Test Item Value Reference Range Interpretation Comments Total Protein (test code = Total 5.7 6.4-8.4 Protein) [place] 480482-07-27 09:07:00 Test Item Value Reference Range Interpretation Comments Albumin Lvl (test code = Albumin Lvl) 2.6 3.5-5.0 [facility] [id number] 09:07:00 Test Item Value Reference Range Interpretation Comments ALT (test code = ALT) 18 See_Comment [Auto mated message] The system which ge nerated this result transmit lavon reference range : <=65. The reference range was not used to interpr et this result as dionne l/abnormal. [facility] [id number] 09:07:00 Test Item Value Reference Range Interpretation Comments AST (test code = AST) 28 See_Comment [Auto mated message] The system which ge nerated this result transmit lavon reference range : <=37. The reference range was not used to interpr et this result as dionne l/abnormal. [facility] [id number] 09:07:00 Test Item Value Reference Range Interpretation Comments Alk Phos (test code = Alk Phos) 44 39-136 [facility] [employer] [id number] 09:07:00 Test Item Value Reference Range Interpretation Comments Bili Total (test code = Bili Total) 1.1 0.2-1.3 [facility] [id number] 09:07:00 Test Item Value Reference Range Interpretation Comments AGAP (test code = AGAP) 10.2 10.0-20.0 [facility] [id number] 09:07:00 Test Item Value Reference Range Interpretation Comments B/C Ratio (test code = B/C Ratio) 31 1 6-25 [facility] [id number] 09:07:00 Test Item Value Reference Range Interpretation Comments Globulin (test code = Globulin) 3.1 2.7-4.2 [facility] [id number] 09:07:00 Test Item Value Reference Range Interpretation Comments A/G Ratio (test code = A/G Ratio) 0.8 1 0.7-1.6 [facility] [employer] [id number] 09:07:00 Test Item Value Reference Range Interpretation Comments eGFR (test code = eGFR) 59 [facility] [id number] 09:07:00 Test Item Value Reference Range Interpretation Comments WBC (test code = WBC) 7.2 3.7-10.4 [place] 325412-07-27 09:07:00 Test Item Value Reference Range Interpretation Comments RBC (test code = RBC) 3.06 4.20-5.40 [place] 325412-07-27 09:07:00 Test Item Value Reference Range Interpretation Comments Hgb (test code = Hgb) 7.4 12.0-16.0 [place] 325412-07-27 09:07:00 Test Item Value Reference Range Interpretation Comments Hct (test code = Hct) 22.5 36.0-48.0 [place] 325412-07-27 09:07:00 Test Item Value Reference Range Interpretation Comments MCV (test code = MCV) 73.6 80.0-98.0 [place] [address]-07-27 09:07:00 Test Item Value Reference Range Interpretation Comments MCH (test code = MCH) 24.2 pg 27.0-31.0 [facility] [id number] 09:07:00 Test Item Value Reference Range Interpretation Comments MCHC (test code = MCHC) 32.9 32.0-36.0 [facility] CampusAcjlnwnEIVLYLODOJ9175-39-35 09:07:00 Test Item Value Reference Range Interpretation Comments RDW (test code = RDW) 20.8 11.5-14.5 [place] 325412-07-27 09:07:00 Test Item Value Reference Range Interpretation Comments Platelet (test code = Platelet) 286 133-450 [place] 325412-07-27 09:07:00 Test Item Value Reference Range Interpretation Comments MPV (test code = MPV) 7.4 7.4-10.4 [place] 325412-07-27 09:07:00 Test Item Value Reference Range Interpretation Comments Segs (test code = Segs) 73.8 45.0-75.0 [place] 325412-07-27 09:07:00 Test Item Value Reference Range Interpretation Comments Lymphocytes (test code = Lymphocytes) 17.2 20.0-40.0 [place] [address]-07-27 09:07:00 Test Item Value Reference Range Interpretation Comments Monocytes (test code = Monocytes) 8.8 2.0-12.0 [place] [address]-07-27 09:07:00 Test Item Value Reference Range Interpretation Comments Neutrophils # (test code = Neutrophils 5.3 1.5-8.1 #) [place] 325412-07-27 09:07:00 Test Item Value Reference Range Interpretation Comments Lymphocytes # (test code = Lymphocytes 1.2 1.0-5.5 #) [place] [address]-07-27 09:07:00 Test Item Value Reference Range Interpretation Comments Monocytes # (test code 0.6 See_Comment [Aut omated message] The = Monocytes #) system which generated this result tra nsmitted reference range : <=0.8. The reference r hugo was not used to int erpret this result as normal/abnormal . [place] 325412-07-27 09:07:00 Test Item Value Reference Range Interpretation Comments Microcyte (test code = 1+ *ABN*(06/15/22 Microcyte) 4:07 AM) [place] 480482-07-27 09:07:00 Test Item Value Reference Range Interpretation Comments Glucose Lvl (test code = Glucose Lvl) 108 70-99 [place] 480482-07-27 09:07:00 Test Item Value Reference Range Interpretation Comments BUN (test code = BUN) 29 - [place] 480482-07-27 09:07:00 Test Item Value Reference Range Interpretation Comments Creatinine Lvl (test code = Creatinine 0.94 0.50-1.40 Lvl) [place] 480482-07-27 09:07:00 Test Item Value Reference Range Interpretation Comments Sodium Lvl (test code = Sodium Lvl) 131 135-145 [place] 480482-07-27 09:07:00 Test Item Value Reference Range Interpretation Comments Potassium Lvl (test code = Potassium 3.2 3.5-5.1 Lvl) [place] 480482-07-27 09:07:00 Test Item Value Reference Range Interpretation Comments Chloride Lvl (test code = Chloride Lvl) 93 95-109 [place] 480482-07-27 09:07:00 Test Item Value Reference Range Interpretation Comments CO2 (test code = CO2) 31 24-32 [place] [address]-07-27 09:07:00 Test Item Value Reference Range Interpretation Comments Calcium Lvl (test code = Calcium Lvl) 8.0 8.5-10.5 [place] 480482-07-27 09:07:00 Test Item Value Reference Range Interpretation Comments Total Protein (test code = Total 5.7 6.4-8.4 Protein) [place] 480482-07-27 09:07:00 Test Item Value Reference Range Interpretation Comments Albumin Lvl (test code = Albumin Lvl) 2.6 3.5-5.0 [facility] [id number] 09:07:00 Test Item Value Reference Range Interpretation Comments ALT (test code = ALT) 18 See_Comment [Auto mated message] The system which ge nerated this result transmit lavon reference range : <=65. The reference range was not used to interpr et this result as dionne l/abnormal. [place] 480482-07-27 09:07:00 Test Item Value Reference Range Interpretation Comments AST (test code = AST) 28 See_Comment [Auto mated message] The system which ge nerated this result transmit lavon reference range : <=37. The reference range was not used to interpr et this result as dionne l/abnormal. [place] 480482-07-27 09:07:00 Test Item Value Reference Range Interpretation Comments Alk Phos (test code = Alk Phos) 44 39-136 [place] 480482-07-27 09:07:00 Test Item Value Reference Range Interpretation Comments Bili Total (test code = Bili Total) 1.1 0.2-1.3 [place] 480482-07-27 09:07:00 Test Item Value Reference Range Interpretation Comments AGAP (test code = AGAP) 10.2 10.0-20.0 [facility] [id number] 09:07:00 Test Item Value Reference Range Interpretation Comments B/C Ratio (test code = B/C Ratio) 31 1 6-25 [facility] [id number] 09:07:00 Test Item Value Reference Range Interpretation Comments Globulin (test code = Globulin) 3.1 2.7-4.2 [facility]2022-07-27 09:07:00 Test Item Value Reference Range Interpretation Comments A/G Ratio (test code = A/G Ratio) 0.8 1 0.7-1.6 [facility]2022-07-27 09:07:00 Test Item Value Reference Range Interpretation Comments eGFR (test code = eGFR) 59 [facility] CampusPxisswqSLSNIMHLKT0551-98-55 09:07:00 Test Item Value Reference Range Interpretation Comments WBC (test code = WBC) 7.2 3.7-10.4 [place] 325412-07-27 09:07:00 Test Item Value Reference Range Interpretation Comments RBC (test code = RBC) 3.06 4.20-5.40 [facility] CampusJbdclumXJPRHHIKDN7383-53-07 09:07:00 Test Item Value Reference Range Interpretation Comments Hgb (test code = Hgb) 7.4 12.0-16.0 [place] 325412-07-27 09:07:00 Test Item Value Reference Range Interpretation Comments Hct (test code = Hct) 22.5 36.0-48.0 [facility] CampusVclfyneGEDDVHOIXN2790-02-55 09:07:00 Test Item Value Reference Range Interpretation Comments MCV (test code = MCV) 73.6 80.0-98.0 [facility] CampusGxjsfazMXOZKIZIZG9297-82-06 09:07:00 Test Item Value Reference Range Interpretation Comments MCH (test code = MCH) 24.2 pg 27.0-31.0 [facility] C[id number] 09:07:00 Test Item Value Reference Range Interpretation Comments MCHC (test code = MCHC) 32.9 32.0-36.0 [place] 325412-07-27 09:07:00 Test Item Value Reference Range Interpretation Comments RDW (test code = RDW) 20.8 11.5-14.5 [place] 325412-07-27 09:07:00 Test Item Value Reference Range Interpretation Comments Platelet (test code = Platelet) 286 133-450 [facility] CampusUkgpdxoXTQHSFZJGY1906-61-58 09:07:00 Test Item Value Reference Range Interpretation Comments MPV (test code = MPV) 7.4 7.4-10.4 [place] 325412-07-27 09:07:00 Test Item Value Reference Range Interpretation Comments Segs (test code = Segs) 73.8 45.0-75.0 [place] 325412-07-27 09:07:00 Test Item Value Reference Range Interpretation Comments Lymphocytes (test code = Lymphocytes) 17.2 20.0-40.0 [place] 325412-07-27 09:07:00 Test Item Value Reference Range Interpretation Comments Monocytes (test code = Monocytes) 8.8 2.0-12.0 [place] 325412-07-27 09:07:00 Test Item Value Reference Range Interpretation Comments Neutrophils # (test code = Neutrophils 5.3 1.5-8.1 #) [place] 325412-07-27 09:07:00 Test Item Value Reference Range Interpretation Comments Lymphocytes # (test code = Lymphocytes 1.2 1.0-5.5 #) [place] 325412-07-27 09:07:00 Test Item Value Reference Range Interpretation Comments Monocytes # (test code 0.6 See_Comment [Aut omated message] The = Monocytes #) system which generated this result tra nsmitted reference range : <=0.8. The reference r hugo was not used to int erpret this result as normal/abnormal . [place] 325412-07-27 09:07:00 Test Item Value Reference Range Interpretation Comments Microcyte (test code = 1+ *ABN*(06/15/22 Microcyte) 4:07 AM) [place] 480482-07-27 09:07:00 Test Item Value Reference Range Interpretation Comments Glucose Lvl (test code = Glucose Lvl) 108 70-99 [place] 480482-07-27 09:07:00 Test Item Value Reference Range Interpretation Comments BUN (test code = BUN) 29 -22 [place] 480482-07-27 09:07:00 Test Item Value Reference Range Interpretation Comments Creatinine Lvl (test code = Creatinine 0.94 0.50-1.40 Lvl) [place] 480482-07-27 09:07:00 Test Item Value Reference Range Interpretation Comments Sodium Lvl (test code = Sodium Lvl) 131 135-145 [place] 480482-07-27 09:07:00 Test Item Value Reference Range Interpretation Comments Potassium Lvl (test code = Potassium 3.2 3.5-5.1 Lvl) [place] 480482-07-27 09:07:00 Test Item Value Reference Range Interpretation Comments Chloride Lvl (test code = Chloride Lvl) 93 95-109 [place] 480482-07-27 09:07:00 Test Item Value Reference Range Interpretation Comments CO2 (test code = CO2) 31 24-32 [place] 480482-07-27 09:07:00 Test Item Value Reference Range Interpretation Comments Calcium Lvl (test code = Calcium Lvl) 8.0 8.5-10.5 [place] 480482-07-27 09:07:00 Test Item Value Reference Range Interpretation Comments Total Protein (test code = Total 5.7 6.4-8.4 Protein) [place] [address]-07-27 09:07:00 Test Item Value Reference Range Interpretation Comments Albumin Lvl (test code = Albumin Lvl) 2.6 3.5-5.0 [place] 480482-07-27 09:07:00 Test Item Value Reference Range Interpretation Comments ALT (test code = ALT) 18 See_Comment [Auto mated message] The system which ge nerated this result transmit lavon reference range : <=65. The reference range was not used to interpr et this result as dionne l/abnormal. [place] 480482-07-27 09:07:00 Test Item Value Reference Range Interpretation Comments AST (test code = AST) 28 See_Comment [Auto mated message] The system which ge nerated this result transmit lavon reference range : <=37. The reference range was not used to interpr et this result as dionne l/abnormal. [place] 480482-07-27 09:07:00 Test Item Value Reference Range Interpretation Comments Alk Phos (test code = Alk Phos) 44 39-136 [place] 480482-07-27 09:07:00 Test Item Value Reference Range Interpretation Comments Bili Total (test code = Bili Total) 1.1 0.2-1.3 [place] 480482-07-27 09:07:00 Test Item Value Reference Range Interpretation Comments AGAP (test code = AGAP) 10.2 10.0-20.0 [place] 480482-07-27 09:07:00 Test Item Value Reference Range Interpretation Comments B/C Ratio (test code = B/C Ratio) 31 1 6-25 [place] 480482-07-27 09:07:00 Test Item Value Reference Range Interpretation Comments Globulin (test code = Globulin) 3.1 2.7-4.2 [place] 480482-07-27 09:07:00 Test Item Value Reference Range Interpretation Comments A/G Ratio (test code = A/G Ratio) 0.8 1 0.7-1.6 [place] 480482-07-27 09:07:00 Test Item Value Reference Range Interpretation Comments eGFR (test code = eGFR) 59 [place] 325412-07-27 09:07:00 Test Item Value Reference Range Interpretation Comments WBC (test code = WBC) 7.2 3.7-10.4 [place] 325412-07-27 09:07:00 Test Item Value Reference Range Interpretation Comments RBC (test code = RBC) 3.06 4.20-5.40 [place] 325412-07-27 09:07:00 Test Item Value Reference Range Interpretation Comments Hgb (test code = Hgb) 7.4 12.0-16.0 [place] 325412-07-27 09:07:00 Test Item Value Reference Range Interpretation Comments Hct (test code = Hct) 22.5 36.0-48.0 [place] 325412-07-27 09:07:00 Test Item Value Reference Range Interpretation Comments MCV (test code = MCV) 73.6 80.0-98.0 [place] 325412-07-27 09:07:00 Test Item Value Reference Range Interpretation Comments MCH (test code = MCH) 24.2 pg 27.0-31.0 [place] 325412-07-27 09:07:00 Test Item Value Reference Range Interpretation Comments MCHC (test code = MCHC) 32.9 32.0-36.0 [place] 325412-07-27 09:07:00 Test Item Value Reference Range Interpretation Comments RDW (test code = RDW) 20.8 11.5-14.5 [place] 325412-07-27 09:07:00 Test Item Value Reference Range Interpretation Comments Platelet (test code = Platelet) 286 133-450 [place] 325412-07-27 09:07:00 Test Item Value Reference Range Interpretation Comments MPV (test code = MPV) 7.4 7.4-10.4 [place] 325412-07-27 09:07:00 Test Item Value Reference Range Interpretation Comments Segs (test code = Segs) 73.8 45.0-75.0 [place] 325412-07-27 09:07:00 Test Item Value Reference Range Interpretation Comments Lymphocytes (test code = Lymphocytes) 17.2 20.0-40.0 [place] [address]-07-27 09:07:00 Test Item Value Reference Range Interpretation Comments Monocytes (test code = Monocytes) 8.8 2.0-12.0 [place] [address]-07-27 09:07:00 Test Item Value Reference Range Interpretation Comments Neutrophils # (test code = Neutrophils 5.3 1.5-8.1 #) [place] 325412-07-27 09:07:00 Test Item Value Reference Range Interpretation Comments Lymphocytes # (test code = Lymphocytes 1.2 1.0-5.5 #) [place] 325412-07-27 09:07:00 Test Item Value Reference Range Interpretation Comments Monocytes # (test code 0.6 See_Comment [Aut omated message] The = Monocytes #) system which generated this result tra nsmitted reference range : <=0.8. The reference r hugo was not used to int erpret this result as normal/abnormal . [place] 325412-07-27 09:07:00 Test Item Value Reference Range Interpretation Comments Microcyte (test code = 1+ *ABN*(06/15/22 Microcyte) 4:07 AM) [place] 480482-07-27 09:07:00 Test Item Value Reference Range Interpretation Comments Glucose Lvl (test code = Glucose Lvl) 108 70-99 [place] 480482-07-27 09:07:00 Test Item Value Reference Range Interpretation Comments BUN (test code = BUN) 29 7-22 [place] 480482-07-27 09:07:00 Test Item Value Reference Range Interpretation Comments Creatinine Lvl (test code = Creatinine 0.94 0.50-1.40 Lvl) [place] 480482-07-27 09:07:00 Test Item Value Reference Range Interpretation Comments Sodium Lvl (test code = Sodium Lvl) 131 135-145 [place] 480482-07-27 09:07:00 Test Item Value Reference Range Interpretation Comments Potassium Lvl (test code = Potassium 3.2 3.5-5.1 Lvl) [place] 480482-07-27 09:07:00 Test Item Value Reference Range Interpretation Comments Chloride Lvl (test code = Chloride Lvl) 93 95-109 [place] 480482-07-27 09:07:00 Test Item Value Reference Range Interpretation Comments CO2 (test code = CO2) 31 24-32 [place] 480482-07-27 09:07:00 Test Item Value Reference Range Interpretation Comments Calcium Lvl (test code = Calcium Lvl) 8.0 8.5-10.5 [place] 480482-07-27 09:07:00 Test Item Value Reference Range Interpretation Comments Total Protein (test code = Total 5.7 6.4-8.4 Protein) [place] 480482-07-27 09:07:00 Test Item Value Reference Range Interpretation Comments Albumin Lvl (test code = Albumin Lvl) 2.6 3.5-5.0 [place] 480482-07-27 09:07:00 Test Item Value Reference Range Interpretation Comments ALT (test code = ALT) 18 See_Comment [Auto mated message] The system which ge nerated this result transmit lavon reference range : <=65. The reference range was not used to interpr et this result as dionne l/abnormal. [place] 480482-07-27 09:07:00 Test Item Value Reference Range Interpretation Comments AST (test code = AST) 28 See_Comment [Auto mated message] The system which ge nerated this result transmit lavon reference range : <=37. The reference range was not used to interpr et this result as dionne l/abnormal. [place] 480482-07-27 09:07:00 Test Item Value Reference Range Interpretation Comments Alk Phos (test code = Alk Phos) 44 39-136 [place] 480482-07-27 09:07:00 Test Item Value Reference Range Interpretation Comments Bili Total (test code = Bili Total) 1.1 0.2-1.3 [facility]2022-07-27 09:07:00 Test Item Value Reference Range Interpretation Comments AGAP (test code = AGAP) 10.2 10.0-20.0 [facility]2022-07-27 09:07:00 Test Item Value Reference Range Interpretation Comments B/C Ratio (test code = B/C Ratio) 31 1 6-25 [facility]2022-07-27 09:07:00 Test Item Value Reference Range Interpretation Comments Globulin (test code = Globulin) 3.1 2.7-4.2 [place] 480482-07-27 09:07:00 Test Item Value Reference Range Interpretation Comments A/G Ratio (test code = A/G Ratio) 0.8 1 0.7-1.6 [place] 480482-07-27 09:07:00 Test Item Value Reference Range Interpretation Comments eGFR (test code = eGFR) 59 [facility] CampusRmyovhqDZXIIUFQDV6467-27-63 09:07:00 Test Item Value Reference Range Interpretation Comments WBC (test code = WBC) 7.2 3.7-10.4 [place] 325412-07-27 09:07:00 Test Item Value Reference Range Interpretation Comments RBC (test code = RBC) 3.06 4.20-5.40 [facility] CampusPtjuhalDNQTQTOTWY5845-32-84 09:07:00 Test Item Value Reference Range Interpretation Comments Hgb (test code = Hgb) 7.4 12.0-16.0 [facility] CampusUobpxztHBNJXCZZFL6692-26-45 09:07:00 Test Item Value Reference Range Interpretation Comments Hct (test code = Hct) 22.5 36.0-48.0 [place] 325412-07-27 09:07:00 Test Item Value Reference Range Interpretation Comments MCV (test code = MCV) 73.6 80.0-98.0 [place] 325412-07-27 09:07:00 Test Item Value Reference Range Interpretation Comments MCH (test code = MCH) 24.2 pg 27.0-31.0 [place] 325412-07-27 09:07:00 Test Item Value Reference Range Interpretation Comments MCHC (test code = MCHC) 32.9 32.0-36.0 [facility] CampusPqlbrciBLAUNXDZKK7512-07-56 09:07:00 Test Item Value Reference Range Interpretation Comments RDW (test code = RDW) 20.8 11.5-14.5 [facility] CampusLpqvpdrQGHVVNLPFO1148-14-34 09:07:00 Test Item Value Reference Range Interpretation Comments Platelet (test code = Platelet) 286 133-450 [facility] CampusYnsdrdyIDIRTOGEGW8334-86-64 09:07:00 Test Item Value Reference Range Interpretation Comments MPV (test code = MPV) 7.4 7.4-10.4 [facility] CampusJilfvgkHQWPUQGBXD8324-81-20 09:07:00 Test Item Value Reference Range Interpretation Comments Segs (test code = Segs) 73.8 45.0-75.0 [facility] CampusWpkcaagRQKXFNYPPQ4115-08-17 09:07:00 Test Item Value Reference Range Interpretation Comments Lymphocytes (test code = Lymphocytes) 17.2 20.0-40.0 [place] 325412-07-27 09:07:00 Test Item Value Reference Range Interpretation Comments Monocytes (test code = Monocytes) 8.8 2.0-12.0 [facility] CampusDjpiyppXMWAYHMUEZ3234-18-12 09:07:00 Test Item Value Reference Range Interpretation Comments Neutrophils # (test code = Neutrophils 5.3 1.5-8.1 #) [facility] CampusXxhzchyBLHNZUJBDB4529-01-30 09:07:00 Test Item Value Reference Range Interpretation Comments Lymphocytes # (test code = Lymphocytes 1.2 1.0-5.5 #) [place] 325412-07-27 09:07:00 Test Item Value Reference Range Interpretation Comments Monocytes # (test code 0.6 See_Comment [Aut omated message] The = Monocytes #) system which generated this result tra nsmitted reference range : <=0.8. The reference r hugo was not used to int erpret this result as normal/abnormal . [facility] CampusFfwiquwVVEQIXWBJQ9758-64-59 09:07:00 Test Item Value Reference Range Interpretation Comments Microcyte (test code = 1+ *ABN*(06/15/22 Microcyte) 4:07 AM) [facility]2022-07-27 09:07:00 Test Item Value Reference Range Interpretation Comments Glucose Lvl (test code = Glucose Lvl) 108 70-99 [place] 480482-07-27 09:07:00 Test Item Value Reference Range Interpretation Comments BUN (test code = BUN) 29 7-22 [place] 480482-07-27 09:07:00 Test Item Value Reference Range Interpretation Comments Creatinine Lvl (test code = Creatinine 0.94 0.50-1.40 Lvl) [place] 480482-07-27 09:07:00 Test Item Value Reference Range Interpretation Comments Sodium Lvl (test code = Sodium Lvl) 131 135-145 [place] [address]-07-27 09:07:00 Test Item Value Reference Range Interpretation Comments Potassium Lvl (test code = Potassium 3.2 3.5-5.1 Lvl) [place] [address]-07-27 09:07:00 Test Item Value Reference Range Interpretation Comments Chloride Lvl (test code = Chloride Lvl) 93 95-109 [place] 480482-07-27 09:07:00 Test Item Value Reference Range Interpretation Comments CO2 (test code = CO2) 31 24-32 [place] 480482-07-27 09:07:00 Test Item Value Reference Range Interpretation Comments Calcium Lvl (test code = Calcium Lvl) 8.0 8.5-10.5 [place] 480482-07-27 09:07:00 Test Item Value Reference Range Interpretation Comments Total Protein (test code = Total 5.7 6.4-8.4 Protein) [place] 480482-07-27 09:07:00 Test Item Value Reference Range Interpretation Comments Albumin Lvl (test code = Albumin Lvl) 2.6 3.5-5.0 [place] 480482-07-27 09:07:00 Test Item Value Reference Range Interpretation Comments ALT (test code = ALT) 18 See_Comment [Auto mated message] The system which ge nerated this result transmit lavon reference range : <=65. The reference range was not used to interpr et this result as dionne l/abnormal. [place] [address]-07-27 09:07:00 Test Item Value Reference Range Interpretation Comments AST (test code = AST) 28 See_Comment [Auto mated message] The system which ge nerated this result transmit lavon reference range : <=37. The reference range was not used to interpr et this result as dionne l/abnormal. [place] 480482-07-27 09:07:00 Test Item Value Reference Range Interpretation Comments Alk Phos (test code = Alk Phos) 44 39-136 [place] 480482-07-27 09:07:00 Test Item Value Reference Range Interpretation Comments Bili Total (test code = Bili Total) 1.1 0.2-1.3 [place] 480482-07-27 09:07:00 Test Item Value Reference Range Interpretation Comments AGAP (test code = AGAP) 10.2 10.0-20.0 [place] 480482-07-27 09:07:00 Test Item Value Reference Range Interpretation Comments B/C Ratio (test code = B/C Ratio) 31 1 6-25 [place] [address]-07-27 09:07:00 Test Item Value Reference Range Interpretation Comments Globulin (test code = Globulin) 3.1 2.7-4.2 [place] 480482-07-27 09:07:00 Test Item Value Reference Range Interpretation Comments A/G Ratio (test code = A/G Ratio) 0.8 1 0.7-1.6 [place] [address]-07-27 09:07:00 Test Item Value Reference Range Interpretation Comments eGFR (test code = eGFR) 59 [place] 325412-07-27 09:07:00 Test Item Value Reference Range Interpretation Comments WBC (test code = WBC) 7.2 3.7-10.4 [place] 325412-07-27 09:07:00 Test Item Value Reference Range Interpretation Comments RBC (test code = RBC) 3.06 4.20-5.40 [place] [address]-07-27 09:07:00 Test Item Value Reference Range Interpretation Comments Hgb (test code = Hgb) 7.4 12.0-16.0 [place] [address]-07-27 09:07:00 Test Item Value Reference Range Interpretation Comments Hct (test code = Hct) 22.5 36.0-48.0 [place] [address]-07-27 09:07:00 Test Item Value Reference Range Interpretation Comments MCV (test code = MCV) 73.6 80.0-98.0 [place] 325412-07-27 09:07:00 Test Item Value Reference Range Interpretation Comments MCH (test code = MCH) 24.2 pg 27.0-31.0 [place] 325412-07-27 09:07:00 Test Item Value Reference Range Interpretation Comments MCHC (test code = MCHC) 32.9 32.0-36.0 [place] 325412-07-27 09:07:00 Test Item Value Reference Range Interpretation Comments RDW (test code = RDW) 20.8 11.5-14.5 [place] 325412-07-27 09:07:00 Test Item Value Reference Range Interpretation Comments Platelet (test code = Platelet) 286 133-450 [facility] CampusQgphzubXFLCQKQGAU1517-47-56 09:07:00 Test Item Value Reference Range Interpretation Comments MPV (test code = MPV) 7.4 7.4-10.4 [place] 325412-07-27 09:07:00 Test Item Value Reference Range Interpretation Comments Segs (test code = Segs) 73.8 45.0-75.0 [place] 325412-07-27 09:07:00 Test Item Value Reference Range Interpretation Comments Lymphocytes (test code = Lymphocytes) 17.2 20.0-40.0 [facility] CampusCrpdlrbIESGUPGHXX7463-28-77 09:07:00 Test Item Value Reference Range Interpretation Comments Monocytes (test code = Monocytes) 8.8 2.0-12.0 [place] 325412-07-27 09:07:00 Test Item Value Reference Range Interpretation Comments Neutrophils # (test code = Neutrophils 5.3 1.5-8.1 #) [facility] CampusKoktyqxKCAFNCRHOK7297-56-46 09:07:00 Test Item Value Reference Range Interpretation Comments Lymphocytes # (test code = Lymphocytes 1.2 1.0-5.5 #) [place] 325412-07-27 09:07:00 Test Item Value Reference Range Interpretation Comments Monocytes # (test code 0.6 See_Comment [Aut omated message] The = Monocytes #) system which generated this result tra nsmitted reference range : <=0.8. The reference r hugo was not used to int erpret this result as normal/abnormal . [facility] CampusNeelcjlVDUMQCOYWQ1700-16-68 09:07:00 Test Item Value Reference Range Interpretation Comments Microcyte (test code = 1+ *ABN*(06/15/22 Microcyte) 4:07 AM) [place] 480482-07-27 09:07:00 Test Item Value Reference Range Interpretation Comments Glucose Lvl (test code = Glucose Lvl) 108 70-99 [place] 480482-07-27 09:07:00 Test Item Value Reference Range Interpretation Comments BUN (test code = BUN) 29 - [place] 480482-07-27 09:07:00 Test Item Value Reference Range Interpretation Comments Creatinine Lvl (test code = Creatinine 0.94 0.50-1.40 Lvl) [place] 480482-07-27 09:07:00 Test Item Value Reference Range Interpretation Comments Sodium Lvl (test code = Sodium Lvl) 131 135-145 [place] 480482-07-27 09:07:00 Test Item Value Reference Range Interpretation Comments Potassium Lvl (test code = Potassium 3.2 3.5-5.1 Lvl) [place] 480482-07-27 09:07:00 Test Item Value Reference Range Interpretation Comments Chloride Lvl (test code = Chloride Lvl) 93 95-109 [place] 480482-07-27 09:07:00 Test Item Value Reference Range Interpretation Comments CO2 (test code = CO2) 31 24-32 [place] 480482-07-27 09:07:00 Test Item Value Reference Range Interpretation Comments Calcium Lvl (test code = Calcium Lvl) 8.0 8.5-10.5 [place] 480482-07-27 09:07:00 Test Item Value Reference Range Interpretation Comments Total Protein (test code = Total 5.7 6.4-8.4 Protein) [place] 480482-07-27 09:07:00 Test Item Value Reference Range Interpretation Comments Albumin Lvl (test code = Albumin Lvl) 2.6 3.5-5.0 [place] [address]-07-27 09:07:00 Test Item Value Reference Range Interpretation Comments ALT (test code = ALT) 18 See_Comment [Auto mated message] The system which ge nerated this result transmit lavon reference range : <=65. The reference range was not used to interpr et this result as dionne l/abnormal. [place] 480482-07-27 09:07:00 Test Item Value Reference Range Interpretation Comments AST (test code = AST) 28 See_Comment [Auto mated message] The system which ge nerated this result transmit lavon reference range : <=37. The reference range was not used to interpr et this result as dionne l/abnormal. [place] 480482-07-27 09:07:00 Test Item Value Reference Range Interpretation Comments Alk Phos (test code = Alk Phos) 44 39-136 [place] 480482-07-27 09:07:00 Test Item Value Reference Range Interpretation Comments Bili Total (test code = Bili Total) 1.1 0.2-1.3 [place] 480482-07-27 09:07:00 Test Item Value Reference Range Interpretation Comments AGAP (test code = AGAP) 10.2 10.0-20.0 [place] 480482-07-27 09:07:00 Test Item Value Reference Range Interpretation Comments B/C Ratio (test code = B/C Ratio) 31 1 6-25 [place] 480482-07-27 09:07:00 Test Item Value Reference Range Interpretation Comments Globulin (test code = Globulin) 3.1 2.7-4.2 [facility]2022-07-27 09:07:00 Test Item Value Reference Range Interpretation Comments A/G Ratio (test code = A/G Ratio) 0.8 1 0.7-1.6 [place] 480482-07-27 09:07:00 Test Item Value Reference Range Interpretation Comments eGFR (test code = eGFR) 59 [place] 325412-07-27 09:07:00 Test Item Value Reference Range Interpretation Comments WBC (test code = WBC) 7.2 3.7-10.4 [place] 325412-07-27 09:07:00 Test Item Value Reference Range Interpretation Comments RBC (test code = RBC) 3.06 4.20-5.40 [place] 325412-07-27 09:07:00 Test Item Value Reference Range Interpretation Comments Hgb (test code = Hgb) 7.4 12.0-16.0 [place] [address]-07-27 09:07:00 Test Item Value Reference Range Interpretation Comments Hct (test code = Hct) 22.5 36.0-48.0 [facility] CampusFscvxojAFXNRQUNVF8881-16-27 09:07:00 Test Item Value Reference Range Interpretation Comments MCV (test code = MCV) 73.6 80.0-98.0 [place] 325412-07-27 09:07:00 Test Item Value Reference Range Interpretation Comments MCH (test code = MCH) 24.2 pg 27.0-31.0 [facility] CampusNhhkosjHFYLABERTE9416-58-12 09:07:00 Test Item Value Reference Range Interpretation Comments MCHC (test code = MCHC) 32.9 32.0-36.0 [facility] CampusSwnazcdNLELMXCJCF2798-31-51 09:07:00 Test Item Value Reference Range Interpretation Comments RDW (test code = RDW) 20.8 11.5-14.5 [place] 325412-07-27 09:07:00 Test Item Value Reference Range Interpretation Comments Platelet (test code = Platelet) 286 133-450 [facility] CampusVkenrnvBCENFATZUX5103-74-32 09:07:00 Test Item Value Reference Range Interpretation Comments MPV (test code = MPV) 7.4 7.4-10.4 [facility] CampusUyclfnbIXHEJRXLUM7196-58-33 09:07:00 Test Item Value Reference Range Interpretation Comments Segs (test code = Segs) 73.8 45.0-75.0 [facility] CampusWmqbgjiZQPRLSVOMT3194-75-93 09:07:00 Test Item Value Reference Range Interpretation Comments Lymphocytes (test code = Lymphocytes) 17.2 20.0-40.0 [place] 325412-07-27 09:07:00 Test Item Value Reference Range Interpretation Comments Monocytes (test code = Monocytes) 8.8 2.0-12.0 [place] 325412-07-27 09:07:00 Test Item Value Reference Range Interpretation Comments Neutrophils # (test code = Neutrophils 5.3 1.5-8.1 #) [facility] CampusBolaylrQPUJEFZXSA3793-74-37 09:07:00 Test Item Value Reference Range Interpretation Comments Lymphocytes # (test code = Lymphocytes 1.2 1.0-5.5 #) [place] 325412-07-27 09:07:00 Test Item Value Reference Range Interpretation Comments Monocytes # (test code 0.6 See_Comment [Aut omated message] The = Monocytes #) system which generated this result tra nsmitted reference range : <=0.8. The reference r hugo was not used to int erpret this result as normal/abnormal . [facility] CampusGmyopfqOYTIGMJVHP4762-09-06 09:07:00 Test Item Value Reference Range Interpretation Comments Microcyte (test code = 1+ *ABN*(06/15/22 Microcyte) 4:07 AM) [place] 480482-07-27 09:07:00 Test Item Value Reference Range Interpretation Comments Glucose Lvl (test code = Glucose Lvl) 108 70-99 [place] 480482-07-27 09:07:00 Test Item Value Reference Range Interpretation Comments BUN (test code = BUN) 29 - [place] 480482-07-27 09:07:00 Test Item Value Reference Range Interpretation Comments Creatinine Lvl (test code = Creatinine 0.94 0.50-1.40 Lvl) [place] 480482-07-27 09:07:00 Test Item Value Reference Range Interpretation Comments Sodium Lvl (test code = Sodium Lvl) 131 135-145 [place] 480482-07-27 09:07:00 Test Item Value Reference Range Interpretation Comments Potassium Lvl (test code = Potassium 3.2 3.5-5.1 Lvl) [place] 480482-07-27 09:07:00 Test Item Value Reference Range Interpretation Comments Chloride Lvl (test code = Chloride Lvl) 93 95-109 [place] 480482-07-27 09:07:00 Test Item Value Reference Range Interpretation Comments CO2 (test code = CO2) 31 24-32 [place] 480482-07-27 09:07:00 Test Item Value Reference Range Interpretation Comments Calcium Lvl (test code = Calcium Lvl) 8.0 8.5-10.5 [place] 480482-07-27 09:07:00 Test Item Value Reference Range Interpretation Comments Total Protein (test code = Total 5.7 6.4-8.4 Protein) [place] 480482-07-27 09:07:00 Test Item Value Reference Range Interpretation Comments Albumin Lvl (test code = Albumin Lvl) 2.6 3.5-5.0 [facility] [employer] [id number] 09:07:00 Test Item Value Reference Range Interpretation Comments ALT (test code = ALT) 18 See_Comment [Auto mated message] The system which ge nerated this result transmit lavon reference range : <=65. The reference range was not used to interpr et this result as dionne l/abnormal. [facility] [employer] [id number] 09:07:00 Test Item Value Reference Range Interpretation Comments AST (test code = AST) 28 See_Comment [Auto mated message] The system which ge nerated this result transmit lavon reference range : <=37. The reference range was not used to interpr et this result as dionne l/abnormal. [facility] [employer] [id number] 09:07:00 Test Item Value Reference Range Interpretation Comments Alk Phos (test code = Alk Phos) 44 39-136 [facility] [employer] [id number] 09:07:00 Test Item Value Reference Range Interpretation Comments Bili Total (test code = Bili Total) 1.1 0.2-1.3 [facility] [employer] [id number] 09:07:00 Test Item Value Reference Range Interpretation Comments AGAP (test code = AGAP) 10.2 10.0-20.0 [facility] [employer] [id number] 09:07:00 Test Item Value Reference Range Interpretation Comments B/C Ratio (test code = B/C Ratio) 31 1 6-25 [facility] [employer] [id number] 09:07:00 Test Item Value Reference Range Interpretation Comments Globulin (test code = Globulin) 3.1 2.7-4.2 [facility] [employer] [id number] 09:07:00 Test Item Value Reference Range Interpretation Comments A/G Ratio (test code = A/G Ratio) 0.8 1 0.7-1.6 [facility] [employer] [id number] 09:07:00 Test Item Value Reference Range Interpretation Comments eGFR (test code = eGFR) 59 [facility]YRJZWQ[facility]TEJ5553-49-95 09:07:00 Test Item Value Reference Range Interpretation Comments WBC (test code = WBC) 7.2 3.7-10.4 [facility] CenterXakljggYZYFJYQTID4097-12-60 09:07:00 Test Item Value Reference Range Interpretation Comments RBC (test code = RBC) 3.06 4.20-5.40 [facility] CampusUajwltnPJMVZGQGWS5946-95-87 09:07:00 Test Item Value Reference Range Interpretation Comments Hgb (test code = Hgb) 7.4 12.0-16.0 [place] 325412-07-27 09:07:00 Test Item Value Reference Range Interpretation Comments Hct (test code = Hct) 22.5 36.0-48.0 [place] 325412-07-27 09:07:00 Test Item Value Reference Range Interpretation Comments MCV (test code = MCV) 73.6 80.0-98.0 [place] 325412-07-27 09:07:00 Test Item Value Reference Range Interpretation Comments MCH (test code = MCH) 24.2 pg 27.0-31.0 [place] 325412-07-27 09:07:00 Test Item Value Reference Range Interpretation Comments MCHC (test code = MCHC) 32.9 32.0-36.0 [facility] CampusBoeuhqpLLSYAEVPGF1453-69-64 09:07:00 Test Item Value Reference Range Interpretation Comments RDW (test code = RDW) 20.8 11.5-14.5 [facility] CampusGsbkvzdDTXPBJSKNF8270-63-81 09:07:00 Test Item Value Reference Range Interpretation Comments Platelet (test code = Platelet) 286 133-450 [facility] CampusHugpjqgATTYGYTWDM5672-72-45 09:07:00 Test Item Value Reference Range Interpretation Comments MPV (test code = MPV) 7.4 7.4-10.4 [place] 325412-07-27 09:07:00 Test Item Value Reference Range Interpretation Comments Segs (test code = Segs) 73.8 45.0-75.0 [facility] CampusPubopvwOESNNUQHFC7228-21-17 09:07:00 Test Item Value Reference Range Interpretation Comments Lymphocytes (test code = Lymphocytes) 17.2 20.0-40.0 [place] 325412-07-27 09:07:00 Test Item Value Reference Range Interpretation Comments Monocytes (test code = Monocytes) 8.8 2.0-12.0 [place] 325412-07-27 09:07:00 Test Item Value Reference Range Interpretation Comments Neutrophils # (test code = Neutrophils 5.3 1.5-8.1 #) [place] 325412-07-27 09:07:00 Test Item Value Reference Range Interpretation Comments Lymphocytes # (test code = Lymphocytes 1.2 1.0-5.5 #) [place] 325412-07-27 09:07:00 Test Item Value Reference Range Interpretation Comments Monocytes # (test code 0.6 See_Comment [Aut omated message] The = Monocytes #) system which generated this result tra nsmitted reference range : <=0.8. The reference r hugo was not used to int erpret this result as normal/abnormal . [place] 325412-07-27 09:07:00 Test Item Value Reference Range Interpretation Comments Microcyte (test code = 1+ *ABN*(06/15/22 Microcyte) 4:07 AM) [place] 480482-07-27 09:07:00 Test Item Value Reference Range Interpretation Comments Glucose Lvl (test code = Glucose Lvl) 108 70-99 [place] 480482-07-27 09:07:00 Test Item Value Reference Range Interpretation Comments BUN (test code = BUN) 29 06-10 [place] 480482-07-27 09:07:00 Test Item Value Reference Range Interpretation Comments Creatinine Lvl (test code = Creatinine 0.94 0.50-1.40 Lvl) [facility]2022-07-27 09:07:00 Test Item Value Reference Range Interpretation Comments Sodium Lvl (test code = Sodium Lvl) 131 135-145 [place] 480482-07-27 09:07:00 Test Item Value Reference Range Interpretation Comments Potassium Lvl (test code = Potassium 3.2 3.5-5.1 Lvl) [place] 480482-07-27 09:07:00 Test Item Value Reference Range Interpretation Comments Chloride Lvl (test code = Chloride Lvl) 93 95-109 [place] 480482-07-27 09:07:00 Test Item Value Reference Range Interpretation Comments CO2 (test code = CO2) 31 24-32 [place] 480482-07-27 09:07:00 Test Item Value Reference Range Interpretation Comments Calcium Lvl (test code = Calcium Lvl) 8.0 8.5-10.5 [place] 480482-07-27 09:07:00 Test Item Value Reference Range Interpretation Comments Total Protein (test code = Total 5.7 6.4-8.4 Protein) [place] 480482-07-27 09:07:00 Test Item Value Reference Range Interpretation Comments Albumin Lvl (test code = Albumin Lvl) 2.6 3.5-5.0 [facility] [id number] 09:07:00 Test Item Value Reference Range Interpretation Comments ALT (test code = ALT) 18 See_Comment [Auto mated message] The system which ge nerated this result transmit lavon reference range : <=65. The reference range was not used to interpr et this result as dionne l/abnormal. [facility] [id number] 09:07:00 Test Item Value Reference Range Interpretation Comments AST (test code = AST) 28 See_Comment [Auto mated message] The system which ge nerated this result transmit lavon reference range : <=37. The reference range was not used to interpr et this result as dionne l/abnormal. [facility] [id number] 09:07:00 Test Item Value Reference Range Interpretation Comments Alk Phos (test code = Alk Phos) 44 39-136 [facility] [employer] [id number] 09:07:00 Test Item Value Reference Range Interpretation Comments Bili Total (test code = Bili Total) 1.1 0.2-1.3 [facility] [id number] 09:07:00 Test Item Value Reference Range Interpretation Comments AGAP (test code = AGAP) 10.2 10.0-20.0 [facility] [id number] 09:07:00 Test Item Value Reference Range Interpretation Comments B/C Ratio (test code = B/C Ratio) 31 1 6-25 [facility] [id number] 09:07:00 Test Item Value Reference Range Interpretation Comments Globulin (test code = Globulin) 3.1 2.7-4.2 [facility] [id number] 09:07:00 Test Item Value Reference Range Interpretation Comments A/G Ratio (test code = A/G Ratio) 0.8 1 0.7-1.6 [facility] [employer] [id number] 09:07:00 Test Item Value Reference Range Interpretation Comments eGFR (test code = eGFR) 59 [facility] CampusJlrpcqeOIAWUKVCWW2143-57-69 09:07:00 Test Item Value Reference Range Interpretation Comments WBC (test code = WBC) 7.2 3.7-10.4 [facility] CampusZxpoaqkGXHXCXWLAX9304-79-77 09:07:00 Test Item Value Reference Range Interpretation Comments RBC (test code = RBC) 3.06 4.20-5.40 [facility] CampusXrehyolKDRDGGFUYZ2013-15-51 09:07:00 Test Item Value Reference Range Interpretation Comments Hgb (test code = Hgb) 7.4 12.0-16.0 [facility] CampusGaxyweeEGBOTHBKXJ7919-91-25 09:07:00 Test Item Value Reference Range Interpretation Comments Hct (test code = Hct) 22.5 36.0-48.0 [facility] CampusWttiwqrKKHULKCAJM9090-75-81 09:07:00 Test Item Value Reference Range Interpretation Comments MCV (test code = MCV) 73.6 80.0-98.0 [facility] CampusQwkhjcvOMEWVQEFPH2301-56-20 09:07:00 Test Item Value Reference Range Interpretation Comments MCH (test code = MCH) 24.2 pg 27.0-31.0 [facility] CampusNccrytbSZURTDXZKM5273-54-87 09:07:00 Test Item Value Reference Range Interpretation Comments MCHC (test code = MCHC) 32.9 32.0-36.0 [facility] CampusHgmkiwnLGTZYAZHPI7310-18-98 09:07:00 Test Item Value Reference Range Interpretation Comments RDW (test code = RDW) 20.8 11.5-14.5 [facility] CampusUtowkwuBLALVMCVVX5155-84-75 09:07:00 Test Item Value Reference Range Interpretation Comments Platelet (test code = Platelet) 286 133-450 [facility] CampusHwttcisMUQNUZXLXP7212-30-75 09:07:00 Test Item Value Reference Range Interpretation Comments MPV (test code = MPV) 7.4 7.4-10.4 [facility] CampusBygthyfDGROFIKBYV8477-26-16 09:07:00 Test Item Value Reference Range Interpretation Comments Segs (test code = Segs) 73.8 45.0-75.0 [facility] CampusClnltcbJQIGYWOWEW3044-23-90 09:07:00 Test Item Value Reference Range Interpretation Comments Lymphocytes (test code = Lymphocytes) 17.2 20.0-40.0 [place] [address]-07-27 09:07:00 Test Item Value Reference Range Interpretation Comments Monocytes (test code = Monocytes) 8.8 2.0-12.0 [place] [address]-07-27 09:07:00 Test Item Value Reference Range Interpretation Comments Neutrophils # (test code = Neutrophils 5.3 1.5-8.1 #) [place] [address]-07-27 09:07:00 Test Item Value Reference Range Interpretation Comments Lymphocytes # (test code = Lymphocytes 1.2 1.0-5.5 #) [place] [address]-07-27 09:07:00 Test Item Value Reference Range Interpretation Comments Monocytes # (test code 0.6 See_Comment [Aut omated message] The = Monocytes #) system which generated this result tra nsmitted reference range : <=0.8. The reference r hugo was not used to int erpret this result as normal/abnormal . [place] [address]-07-27 09:07:00 Test Item Value Reference Range Interpretation Comments Microcyte (test code = 1+ *ABN*(06/15/22 Microcyte) 4:07 AM) [place] 480482-07-27 09:07:00 Test Item Value Reference Range Interpretation Comments Glucose Lvl (test code = Glucose Lvl) 108 70-99 [place] 480482-07-27 09:07:00 Test Item Value Reference Range Interpretation Comments BUN (test code = BUN) 29 - [place] 480482-07-27 09:07:00 Test Item Value Reference Range Interpretation Comments Creatinine Lvl (test code = Creatinine 0.94 0.50-1.40 Lvl) [place] 480482-07-27 09:07:00 Test Item Value Reference Range Interpretation Comments Sodium Lvl (test code = Sodium Lvl) 131 135-145 [place] 480482-07-27 09:07:00 Test Item Value Reference Range Interpretation Comments Potassium Lvl (test code = Potassium 3.2 3.5-5.1 Lvl) [place] 480482-07-27 09:07:00 Test Item Value Reference Range Interpretation Comments Chloride Lvl (test code = Chloride Lvl) 93 95-109 [place] 480482-07-27 09:07:00 Test Item Value Reference Range Interpretation Comments CO2 (test code = CO2) 31 24-32 [place] 480482-07-27 09:07:00 Test Item Value Reference Range Interpretation Comments Calcium Lvl (test code = Calcium Lvl) 8.0 8.5-10.5 [place] 480482-07-27 09:07:00 Test Item Value Reference Range Interpretation Comments Total Protein (test code = Total 5.7 6.4-8.4 Protein) [place] 480482-07-27 09:07:00 Test Item Value Reference Range Interpretation Comments Albumin Lvl (test code = Albumin Lvl) 2.6 3.5-5.0 [place] 480482-07-27 09:07:00 Test Item Value Reference Range Interpretation Comments ALT (test code = ALT) 18 See_Comment [Auto mated message] The system which ge nerated this result transmit lavon reference range : <=65. The reference range was not used to interpr et this result as dionne l/abnormal. [place] 480482-07-27 09:07:00 Test Item Value Reference Range Interpretation Comments AST (test code = AST) 28 See_Comment [Auto mated message] The system which ge nerated this result transmit lavon reference range : <=37. The reference range was not used to interpr et this result as dionne l/abnormal. [place] 480482-07-27 09:07:00 Test Item Value Reference Range Interpretation Comments Alk Phos (test code = Alk Phos) 44 39-136 [place] 480482-07-27 09:07:00 Test Item Value Reference Range Interpretation Comments Bili Total (test code = Bili Total) 1.1 0.2-1.3 [place] 480482-07-27 09:07:00 Test Item Value Reference Range Interpretation Comments AGAP (test code = AGAP) 10.2 10.0-20.0 [place] 480482-07-27 09:07:00 Test Item Value Reference Range Interpretation Comments B/C Ratio (test code = B/C Ratio) 31 1 6-25 [place] 480482-07-27 09:07:00 Test Item Value Reference Range Interpretation Comments Globulin (test code = Globulin) 3.1 2.7-4.2 [facility]2022-07-27 09:07:00 Test Item Value Reference Range Interpretation Comments A/G Ratio (test code = A/G Ratio) 0.8 1 0.7-1.6 [facility]2022-07-27 09:07:00 Test Item Value Reference Range Interpretation Comments eGFR (test code = eGFR) 59 [place] 325412-07-27 09:07:00 Test Item Value Reference Range Interpretation Comments WBC (test code = WBC) 7.2 3.7-10.4 [place] 325412-07-27 09:07:00 Test Item Value Reference Range Interpretation Comments RBC (test code = RBC) 3.06 4.20-5.40 [place] 325412-07-27 09:07:00 Test Item Value Reference Range Interpretation Comments Hgb (test code = Hgb) 7.4 12.0-16.0 [place] 325412-07-27 09:07:00 Test Item Value Reference Range Interpretation Comments Hct (test code = Hct) 22.5 36.0-48.0 [place] 325412-07-27 09:07:00 Test Item Value Reference Range Interpretation Comments MCV (test code = MCV) 73.6 80.0-98.0 [place] 325412-07-27 09:07:00 Test Item Value Reference Range Interpretation Comments MCH (test code = MCH) 24.2 pg 27.0-31.0 [place] 325412-07-27 09:07:00 Test Item Value Reference Range Interpretation Comments MCHC (test code = MCHC) 32.9 32.0-36.0 [place] 325412-07-27 09:07:00 Test Item Value Reference Range Interpretation Comments RDW (test code = RDW) 20.8 11.5-14.5 [place] 325412-07-27 09:07:00 Test Item Value Reference Range Interpretation Comments Platelet (test code = Platelet) 286 133-450 [place] 325412-07-27 09:07:00 Test Item Value Reference Range Interpretation Comments MPV (test code = MPV) 7.4 7.4-10.4 [place] 325412-07-27 09:07:00 Test Item Value Reference Range Interpretation Comments Segs (test code = Segs) 73.8 45.0-75.0 [place] 325412-07-27 09:07:00 Test Item Value Reference Range Interpretation Comments Lymphocytes (test code = Lymphocytes) 17.2 20.0-40.0 [place] 325412-07-27 09:07:00 Test Item Value Reference Range Interpretation Comments Monocytes (test code = Monocytes) 8.8 2.0-12.0 [place] 325412-07-27 09:07:00 Test Item Value Reference Range Interpretation Comments Neutrophils # (test code = Neutrophils 5.3 1.5-8.1 #) [place] 325412-07-27 09:07:00 Test Item Value Reference Range Interpretation Comments Lymphocytes # (test code = Lymphocytes 1.2 1.0-5.5 #) [place] 325412-07-27 09:07:00 Test Item Value Reference Range Interpretation Comments Monocytes # (test code 0.6 See_Comment [Aut omated message] The = Monocytes #) system which generated this result tra nsmitted reference range : <=0.8. The reference r hugo was not used to int erpret this result as normal/abnormal . [id number] 09:07:00 Test Item Value Reference Range Interpretation Comments Microcyte (test code = 1+ *ABN*(06/15/22 Microcyte) 4:07 AM) [place] 480482-07-27 09:07:00 Test Item Value Reference Range Interpretation Comments Glucose Lvl (test code = Glucose Lvl) 108 70-99 [place] 480482-07-27 09:07:00 Test Item Value Reference Range Interpretation Comments BUN (test code = BUN) 29 -22 [place] 480482-07-27 09:07:00 Test Item Value Reference Range Interpretation Comments Creatinine Lvl (test code = Creatinine 0.94 0.50-1.40 Lvl) [place] 480482-07-27 09:07:00 Test Item Value Reference Range Interpretation Comments Sodium Lvl (test code = Sodium Lvl) 131 135-145 [place] 480482-07-27 09:07:00 Test Item Value Reference Range Interpretation Comments Potassium Lvl (test code = Potassium 3.2 3.5-5.1 Lvl) [facility] [id number] 09:07:00 Test Item Value Reference Range Interpretation Comments Chloride Lvl (test code = Chloride Lvl) 93 95-109 [place] 480482-07-27 09:07:00 Test Item Value Reference Range Interpretation Comments CO2 (test code = CO2) 31 24-32 [place] 480482-07-27 09:07:00 Test Item Value Reference Range Interpretation Comments Calcium Lvl (test code = Calcium Lvl) 8.0 8.5-10.5 [facility] [id number] 09:07:00 Test Item Value Reference Range Interpretation Comments Total Protein (test code = Total 5.7 6.4-8.4 Protein) [place] 480482-07-27 09:07:00 Test Item Value Reference Range Interpretation Comments Albumin Lvl (test code = Albumin Lvl) 2.6 3.5-5.0 [facility] [id number] 09:07:00 Test Item Value Reference Range Interpretation Comments ALT (test code = ALT) 18 See_Comment [Auto mated message] The system which ge nerated this result transmit lavon reference range : <=65. The reference range was not used to interpr et this result as dionne l/abnormal. [facility] [id number] 09:07:00 Test Item Value Reference Range Interpretation Comments AST (test code = AST) 28 See_Comment [Auto mated message] The system which ge nerated this result transmit lavon reference range : <=37. The reference range was not used to interpr et this result as dionne l/abnormal. [facility] [id number] 09:07:00 Test Item Value Reference Range Interpretation Comments Alk Phos (test code = Alk Phos) 44 39-136 [facility] [id number] 09:07:00 Test Item Value Reference Range Interpretation Comments Bili Total (test code = Bili Total) 1.1 0.2-1.3 [facility] [id number] 09:07:00 Test Item Value Reference Range Interpretation Comments AGAP (test code = AGAP) 10.2 10.0-20.0 [place] 480482-07-27 09:07:00 Test Item Value Reference Range Interpretation Comments B/C Ratio (test code = B/C Ratio) 31 1 6-25 [place] 480482-07-27 09:07:00 Test Item Value Reference Range Interpretation Comments Globulin (test code = Globulin) 3.1 2.7-4.2 [place] 480482-07-27 09:07:00 Test Item Value Reference Range Interpretation Comments A/G Ratio (test code = A/G Ratio) 0.8 1 0.7-1.6 [place] 480482-07-27 09:07:00 Test Item Value Reference Range Interpretation Comments eGFR (test code = eGFR) 59 [place] 325412-07-27 09:07:00 Test Item Value Reference Range Interpretation Comments WBC (test code = WBC) 7.2 3.7-10.4 [place] 325412-07-27 09:07:00 Test Item Value Reference Range Interpretation Comments RBC (test code = RBC) 3.06 4.20-5.40 [place] 325412-07-27 09:07:00 Test Item Value Reference Range Interpretation Comments Hgb (test code = Hgb) 7.4 12.0-16.0 [place] 325412-07-27 09:07:00 Test Item Value Reference Range Interpretation Comments Hct (test code = Hct) 22.5 36.0-48.0 [place] 325412-07-27 09:07:00 Test Item Value Reference Range Interpretation Comments MCV (test code = MCV) 73.6 80.0-98.0 [place] 325412-07-27 09:07:00 Test Item Value Reference Range Interpretation Comments MCH (test code = MCH) 24.2 pg 27.0-31.0 [place] 325412-07-27 09:07:00 Test Item Value Reference Range Interpretation Comments MCHC (test code = MCHC) 32.9 32.0-36.0 [place] 325412-07-27 09:07:00 Test Item Value Reference Range Interpretation Comments RDW (test code = RDW) 20.8 11.5-14.5 [place] 325412-07-27 09:07:00 Test Item Value Reference Range Interpretation Comments Platelet (test code = Platelet) 286 133-450 [facility] [id number] 09:07:00 Test Item Value Reference Range Interpretation Comments MPV (test code = MPV) 7.4 7.4-10.4 [place] 325412-07-27 09:07:00 Test Item Value Reference Range Interpretation Comments Segs (test code = Segs) 73.8 45.0-75.0 [place] 325412-07-27 09:07:00 Test Item Value Reference Range Interpretation Comments Lymphocytes (test code = Lymphocytes) 17.2 20.0-40.0 [place] 325412-07-27 09:07:00 Test Item Value Reference Range Interpretation Comments Monocytes (test code = Monocytes) 8.8 2.0-12.0 [place] 325412-07-27 09:07:00 Test Item Value Reference Range Interpretation Comments Neutrophils # (test code = Neutrophils 5.3 1.5-8.1 #) [place] 325412-07-27 09:07:00 Test Item Value Reference Range Interpretation Comments Lymphocytes # (test code = Lymphocytes 1.2 1.0-5.5 #) [place] 325412-07-27 09:07:00 Test Item Value Reference Range Interpretation Comments Monocytes # (test code 0.6 See_Comment [Aut omated message] The = Monocytes #) system which generated this result tra nsmitted reference range : <=0.8. The reference r hugo was not used to int erpret this result as normal/abnormal . [facility] [id number] 09:07:00 Test Item Value Reference Range Interpretation Comments Microcyte (test code = 1+ *ABN*(06/15/22 Microcyte) 4:07 AM) [place] 480482-07-27 09:07:00 Test Item Value Reference Range Interpretation Comments Glucose Lvl (test code = Glucose Lvl) 108 70-99 [facility]2022-07-27 09:07:00 Test Item Value Reference Range Interpretation Comments BUN (test code = BUN) 29 7-22 [place] 480482-07-27 09:07:00 Test Item Value Reference Range Interpretation Comments Creatinine Lvl (test code = Creatinine 0.94 0.50-1.40 Lvl) [place] 480482-07-27 09:07:00 Test Item Value Reference Range Interpretation Comments Sodium Lvl (test code = Sodium Lvl) 131 135-145 [place] 480482-07-27 09:07:00 Test Item Value Reference Range Interpretation Comments Potassium Lvl (test code = Potassium 3.2 3.5-5.1 Lvl) [place] 480482-07-27 09:07:00 Test Item Value Reference Range Interpretation Comments Chloride Lvl (test code = Chloride Lvl) 93 95-109 [place] [address]-07-27 09:07:00 Test Item Value Reference Range Interpretation Comments CO2 (test code = CO2) 31 24-32 [place] 480482-07-27 09:07:00 Test Item Value Reference Range Interpretation Comments Calcium Lvl (test code = Calcium Lvl) 8.0 8.5-10.5 [place] 480482-07-27 09:07:00 Test Item Value Reference Range Interpretation Comments Total Protein (test code = Total 5.7 6.4-8.4 Protein) [place] 480482-07-27 09:07:00 Test Item Value Reference Range Interpretation Comments Albumin Lvl (test code = Albumin Lvl) 2.6 3.5-5.0 [place] 480482-07-27 09:07:00 Test Item Value Reference Range Interpretation Comments ALT (test code = ALT) 18 See_Comment [Auto mated message] The system which ge nerated this result transmit lavon reference range : <=65. The reference range was not used to interpr et this result as dionne l/abnormal. [place] 480482-07-27 09:07:00 Test Item Value Reference Range Interpretation Comments AST (test code = AST) 28 See_Comment [Auto mated message] The system which ge nerated this result transmit lavon reference range : <=37. The reference range was not used to interpr et this result as dionne l/abnormal. [place] [address]-07-27 09:07:00 Test Item Value Reference Range Interpretation Comments Alk Phos (test code = Alk Phos) 44 39-136 [place] 480482-07-27 09:07:00 Test Item Value Reference Range Interpretation Comments Bili Total (test code = Bili Total) 1.1 0.2-1.3 [place] 480482-07-27 09:07:00 Test Item Value Reference Range Interpretation Comments AGAP (test code = AGAP) 10.2 10.0-20.0 [place] 480482-07-27 09:07:00 Test Item Value Reference Range Interpretation Comments B/C Ratio (test code = B/C Ratio) 31 1 6-25 [place] 480482-07-27 09:07:00 Test Item Value Reference Range Interpretation Comments Globulin (test code = Globulin) 3.1 2.7-4.2 [place] 480482-07-27 09:07:00 Test Item Value Reference Range Interpretation Comments A/G Ratio (test code = A/G Ratio) 0.8 1 0.7-1.6 [facility]2022-07-27 09:07:00 Test Item Value Reference Range Interpretation Comments eGFR (test code = eGFR) 59 [facility] [id number] 09:07:00 Test Item Value Reference Range Interpretation Comments WBC (test code = WBC) 7.2 3.7-10.4 [place] 325412-07-27 09:07:00 Test Item Value Reference Range Interpretation Comments RBC (test code = RBC) 3.06 4.20-5.40 [place] 325412-07-27 09:07:00 Test Item Value Reference Range Interpretation Comments Hgb (test code = Hgb) 7.4 12.0-16.0 [place] 325412-07-27 09:07:00 Test Item Value Reference Range Interpretation Comments Hct (test code = Hct) 22.5 36.0-48.0 [place] [address]-07-27 09:07:00 Test Item Value Reference Range Interpretation Comments MCV (test code = MCV) 73.6 80.0-98.0 [place] 325412-07-27 09:07:00 Test Item Value Reference Range Interpretation Comments MCH (test code = MCH) 24.2 pg 27.0-31.0 [place] 325412-07-27 09:07:00 Test Item Value Reference Range Interpretation Comments MCHC (test code = MCHC) 32.9 32.0-36.0 [facility] [id number] 09:07:00 Test Item Value Reference Range Interpretation Comments RDW (test code = RDW) 20.8 11.5-14.5 [facility] CampusCevenwuDPXTQZCQGN1933-06-53 09:07:00 Test Item Value Reference Range Interpretation Comments Platelet (test code = Platelet) 286 133-450 [facility] [id number] 09:07:00 Test Item Value Reference Range Interpretation Comments MPV (test code = MPV) 7.4 7.4-10.4 [place] 325412-07-27 09:07:00 Test Item Value Reference Range Interpretation Comments Segs (test code = Segs) 73.8 45.0-75.0 [place] 325412-07-27 09:07:00 Test Item Value Reference Range Interpretation Comments Lymphocytes (test code = Lymphocytes) 17.2 20.0-40.0 [place] 325412-07-27 09:07:00 Test Item Value Reference Range Interpretation Comments Monocytes (test code = Monocytes) 8.8 2.0-12.0 [facility] [id number] 09:07:00 Test Item Value Reference Range Interpretation Comments Neutrophils # (test code = Neutrophils 5.3 1.5-8.1 #) [facility] [id number] 09:07:00 Test Item Value Reference Range Interpretation Comments Lymphocytes # (test code = Lymphocytes 1.2 1.0-5.5 #) [place] 325412-07-27 09:07:00 Test Item Value Reference Range Interpretation Comments Monocytes # (test code 0.6 See_Comment [Aut omated message] The = Monocytes #) system which generated this result tra nsmitted reference range : <=0.8. The reference r hugo was not used to int erpret this result as normal/abnormal . [facility] CampusCeinmhiGPDUZNCRLE9522-30-93 09:07:00 Test Item Value Reference Range Interpretation Comments Microcyte (test code = 1+ *ABN*(06/15/22 Microcyte) 4:07 AM) [facility]2022-07-27 09:07:00 Test Item Value Reference Range Interpretation Comments Glucose Lvl (test code = Glucose Lvl) 108 70-99 [place] [address]-07-27 09:07:00 Test Item Value Reference Range Interpretation Comments BUN (test code = BUN) 29 7-22 [place] 480482-07-27 09:07:00 Test Item Value Reference Range Interpretation Comments Creatinine Lvl (test code = Creatinine 0.94 0.50-1.40 Lvl) [place] [address]-07-27 09:07:00 Test Item Value Reference Range Interpretation Comments Sodium Lvl (test code = Sodium Lvl) 131 135-145 [place] [address]-07-27 09:07:00 Test Item Value Reference Range Interpretation Comments Potassium Lvl (test code = Potassium 3.2 3.5-5.1 Lvl) [place] [address]-07-27 09:07:00 Test Item Value Reference Range Interpretation Comments Chloride Lvl (test code = Chloride Lvl) 93 95-109 [place] [address]-07-27 09:07:00 Test Item Value Reference Range Interpretation Comments CO2 (test code = CO2) 31 24-32 [place] 480482-07-27 09:07:00 Test Item Value Reference Range Interpretation Comments Calcium Lvl (test code = Calcium Lvl) 8.0 8.5-10.5 [place] [address]-07-27 09:07:00 Test Item Value Reference Range Interpretation Comments Total Protein (test code = Total 5.7 6.4-8.4 Protein) [place] [address]-07-27 09:07:00 Test Item Value Reference Range Interpretation Comments Albumin Lvl (test code = Albumin Lvl) 2.6 3.5-5.0 [place] [address]-07-27 09:07:00 Test Item Value Reference Range Interpretation Comments ALT (test code = ALT) 18 See_Comment [Auto mated message] The system which ge nerated this result transmit lavon reference range : <=65. The reference range was not used to interpr et this result as dionne l/abnormal. [place] [address]-07-27 09:07:00 Test Item Value Reference Range Interpretation Comments AST (test code = AST) 28 See_Comment [Auto mated message] The system which ge nerated this result transmit lavon reference range : <=37. The reference range was not used to interpr et this result as dionne l/abnormal. [place] 480482-07-27 09:07:00 Test Item Value Reference Range Interpretation Comments Alk Phos (test code = Alk Phos) 44 39-136 [place] 480482-07-27 09:07:00 Test Item Value Reference Range Interpretation Comments Bili Total (test code = Bili Total) 1.1 0.2-1.3 [place] 480482-07-27 09:07:00 Test Item Value Reference Range Interpretation Comments AGAP (test code = AGAP) 10.2 10.0-20.0 [place] 480482-07-27 09:07:00 Test Item Value Reference Range Interpretation Comments B/C Ratio (test code = B/C Ratio) 31 1 6-25 [place] 480482-07-27 09:07:00 Test Item Value Reference Range Interpretation Comments Globulin (test code = Globulin) 3.1 2.7-4.2 [place] 480482-07-27 09:07:00 Test Item Value Reference Range Interpretation Comments A/G Ratio (test code = A/G Ratio) 0.8 1 0.7-1.6 [place] 480482-07-27 09:07:00 Test Item Value Reference Range Interpretation Comments eGFR (test code = eGFR) 59 [place] 325412-07-27 09:07:00 Test Item Value Reference Range Interpretation Comments WBC (test code = WBC) 7.2 3.7-10.4 [place] 325412-07-27 09:07:00 Test Item Value Reference Range Interpretation Comments RBC (test code = RBC) 3.06 4.20-5.40 [place] 325412-07-27 09:07:00 Test Item Value Reference Range Interpretation Comments Hgb (test code = Hgb) 7.4 12.0-16.0 [place] [address]-07-27 09:07:00 Test Item Value Reference Range Interpretation Comments Hct (test code = Hct) 22.5 36.0-48.0 [place] [address]-07-27 09:07:00 Test Item Value Reference Range Interpretation Comments MCV (test code = MCV) 73.6 80.0-98.0 [place] 325412-07-27 09:07:00 Test Item Value Reference Range Interpretation Comments MCH (test code = MCH) 24.2 pg 27.0-31.0 [place] 325412-07-27 09:07:00 Test Item Value Reference Range Interpretation Comments MCHC (test code = MCHC) 32.9 32.0-36.0 [place] 325412-07-27 09:07:00 Test Item Value Reference Range Interpretation Comments RDW (test code = RDW) 20.8 11.5-14.5 [place] 325412-07-27 09:07:00 Test Item Value Reference Range Interpretation Comments Platelet (test code = Platelet) 286 133-450 [facility] CampusCogsgofVDFPYBQJSN7886-15-24 09:07:00 Test Item Value Reference Range Interpretation Comments MPV (test code = MPV) 7.4 7.4-10.4 [place] 325412-07-27 09:07:00 Test Item Value Reference Range Interpretation Comments Segs (test code = Segs) 73.8 45.0-75.0 [place] 325412-07-27 09:07:00 Test Item Value Reference Range Interpretation Comments Lymphocytes (test code = Lymphocytes) 17.2 20.0-40.0 [place] 325412-07-27 09:07:00 Test Item Value Reference Range Interpretation Comments Monocytes (test code = Monocytes) 8.8 2.0-12.0 [place] 325412-07-27 09:07:00 Test Item Value Reference Range Interpretation Comments Neutrophils # (test code = Neutrophils 5.3 1.5-8.1 #) [facility] CampusOargkmiCRVDMCPBZN7757-10-50 09:07:00 Test Item Value Reference Range Interpretation Comments Lymphocytes # (test code = Lymphocytes 1.2 1.0-5.5 #) [place] [address]-07-27 09:07:00 Test Item Value Reference Range Interpretation Comments Monocytes # (test code 0.6 See_Comment [Aut omated message] The = Monocytes #) system which generated this result tra nsmitted reference range : <=0.8. The reference r hugo was not used to int erpret this result as normal/abnormal . [place] 325412-07-27 09:07:00 Test Item Value Reference Range Interpretation Comments Microcyte (test code = 1+ *ABN*(06/15/22 Microcyte) 4:07 AM) [place] 480482-07-27 09:07:00 Test Item Value Reference Range Interpretation Comments Glucose Lvl (test code = Glucose Lvl) 108 70-99 [place] 480482-07-27 09:07:00 Test Item Value Reference Range Interpretation Comments BUN (test code = BUN) 29 - [place] 480482-07-27 09:07:00 Test Item Value Reference Range Interpretation Comments Creatinine Lvl (test code = Creatinine 0.94 0.50-1.40 Lvl) [place] 480482-07-27 09:07:00 Test Item Value Reference Range Interpretation Comments Sodium Lvl (test code = Sodium Lvl) 131 135-145 [place] 480482-07-27 09:07:00 Test Item Value Reference Range Interpretation Comments Potassium Lvl (test code = Potassium 3.2 3.5-5.1 Lvl) [place] 480482-07-27 09:07:00 Test Item Value Reference Range Interpretation Comments Chloride Lvl (test code = Chloride Lvl) 93 95-109 [place] 480482-07-27 09:07:00 Test Item Value Reference Range Interpretation Comments CO2 (test code = CO2) 31 24-32 [place] 480482-07-27 09:07:00 Test Item Value Reference Range Interpretation Comments Calcium Lvl (test code = Calcium Lvl) 8.0 8.5-10.5 [place] 480482-07-27 09:07:00 Test Item Value Reference Range Interpretation Comments Total Protein (test code = Total 5.7 6.4-8.4 Protein) [place] 480482-07-27 09:07:00 Test Item Value Reference Range Interpretation Comments Albumin Lvl (test code = Albumin Lvl) 2.6 3.5-5.0 [place] 480482-07-27 09:07:00 Test Item Value Reference Range Interpretation Comments ALT (test code = ALT) 18 See_Comment [Auto mated message] The system which ge nerated this result transmit lavon reference range : <=65. The reference range was not used to interpr et this result as dionne l/abnormal. [place] 480482-07-27 09:07:00 Test Item Value Reference Range Interpretation Comments AST (test code = AST) 28 See_Comment [Auto mated message] The system which ge nerated this result transmit lavon reference range : <=37. The reference range was not used to interpr et this result as dionne l/abnormal. [place] 480482-07-27 09:07:00 Test Item Value Reference Range Interpretation Comments Alk Phos (test code = Alk Phos) 44 39-136 [place] 480482-07-27 09:07:00 Test Item Value Reference Range Interpretation Comments Bili Total (test code = Bili Total) 1.1 0.2-1.3 [place] 480482-07-27 09:07:00 Test Item Value Reference Range Interpretation Comments AGAP (test code = AGAP) 10.2 10.0-20.0 [place] 480482-07-27 09:07:00 Test Item Value Reference Range Interpretation Comments B/C Ratio (test code = B/C Ratio) 31 1 6-25 [place] 480482-07-27 09:07:00 Test Item Value Reference Range Interpretation Comments Globulin (test code = Globulin) 3.1 2.7-4.2 [place] 480482-07-27 09:07:00 Test Item Value Reference Range Interpretation Comments A/G Ratio (test code = A/G Ratio) 0.8 1 0.7-1.6 [place] 480482-07-27 09:07:00 Test Item Value Reference Range Interpretation Comments eGFR (test code = eGFR) 59 [place] 325412-07-27 09:07:00 Test Item Value Reference Range Interpretation Comments WBC (test code = WBC) 7.2 3.7-10.4 [place] 325412-07-27 09:07:00 Test Item Value Reference Range Interpretation Comments RBC (test code = RBC) 3.06 4.20-5.40 [place] 325412-07-27 09:07:00 Test Item Value Reference Range Interpretation Comments Hgb (test code = Hgb) 7.4 12.0-16.0 [place] 325412-07-27 09:07:00 Test Item Value Reference Range Interpretation Comments Hct (test code = Hct) 22.5 36.0-48.0 [facility]WhpdbarXJJZAZTFAX7784-71-99 09:07:00 Test Item Value Reference Range Interpretation Comments MCV (test code = MCV) 73.6 80.0-98.0 [facility] CampusJfheuwpAFZHHMRGIO2289-44-03 09:07:00 Test Item Value Reference Range Interpretation Comments MCH (test code = MCH) 24.2 pg 27.0-31.0 [facility] CampusDufimhbFXXXZAIDSU4603-03-21 09:07:00 Test Item Value Reference Range Interpretation Comments MCHC (test code = MCHC) 32.9 32.0-36.0 [facility] CampusRvtdtijMTRSVEJNZY7945-09-38 09:07:00 Test Item Value Reference Range Interpretation Comments RDW (test code = RDW) 20.8 11.5-14.5 [facility] CampusMlwmlytNZKZKGVCQV5988-24-33 09:07:00 Test Item Value Reference Range Interpretation Comments Platelet (test code = Platelet) 286 133-450 [facility] CampusCuvowzvBMZEFEQIKP8683-93-52 09:07:00 Test Item Value Reference Range Interpretation Comments MPV (test code = MPV) 7.4 7.4-10.4 [facility] CampusQqvrxnfCKGRPWGFMN9317-03-96 09:07:00 Test Item Value Reference Range Interpretation Comments Segs (test code = Segs) 73.8 45.0-75.0 [place] 325412-07-27 09:07:00 Test Item Value Reference Range Interpretation Comments Lymphocytes (test code = Lymphocytes) 17.2 20.0-40.0 [place] 325412-07-27 09:07:00 Test Item Value Reference Range Interpretation Comments Monocytes (test code = Monocytes) 8.8 2.0-12.0 [place] 325412-07-27 09:07:00 Test Item Value Reference Range Interpretation Comments Neutrophils # (test code = Neutrophils 5.3 1.5-8.1 #) [facility] CampusYkqdmscGMSGPZWKZM6166-19-16 09:07:00 Test Item Value Reference Range Interpretation Comments Lymphocytes # (test code = Lymphocytes 1.2 1.0-5.5 #) [facility] CampusRqxncjeSKHEELIBDN0451-48-49 09:07:00 Test Item Value Reference Range Interpretation Comments Monocytes # (test code 0.6 See_Comment [Aut omated message] The = Monocytes #) system which generated this result tra nsmitted reference range : <=0.8. The reference r hugo was not used to int erpret this result as normal/abnormal . [place] 325412-07-27 09:07:00 Test Item Value Reference Range Interpretation Comments Microcyte (test code = 1+ *ABN*(06/15/22 Microcyte) 4:07 AM) [place] 480482-07-27 09:07:00 Test Item Value Reference Range Interpretation Comments Glucose Lvl (test code = Glucose Lvl) 108 70-99 [place] 480482-07-27 09:07:00 Test Item Value Reference Range Interpretation Comments BUN (test code = BUN) 29 - [place] 480482-07-27 09:07:00 Test Item Value Reference Range Interpretation Comments Creatinine Lvl (test code = Creatinine 0.94 0.50-1.40 Lvl) [place] 480482-07-27 09:07:00 Test Item Value Reference Range Interpretation Comments Sodium Lvl (test code = Sodium Lvl) 131 135-145 [place] 480482-07-27 09:07:00 Test Item Value Reference Range Interpretation Comments Potassium Lvl (test code = Potassium 3.2 3.5-5.1 Lvl) [place] 480482-07-27 09:07:00 Test Item Value Reference Range Interpretation Comments Chloride Lvl (test code = Chloride Lvl) 93 95-109 [place] 480482-07-27 09:07:00 Test Item Value Reference Range Interpretation Comments CO2 (test code = CO2) 31 24-32 [place] 480482-07-27 09:07:00 Test Item Value Reference Range Interpretation Comments Calcium Lvl (test code = Calcium Lvl) 8.0 8.5-10.5 [place] 480482-07-27 09:07:00 Test Item Value Reference Range Interpretation Comments Total Protein (test code = Total 5.7 6.4-8.4 Protein) [place] 480482-07-27 09:07:00 Test Item Value Reference Range Interpretation Comments Albumin Lvl (test code = Albumin Lvl) 2.6 3.5-5.0 [facility] [employer] [id number] 09:07:00 Test Item Value Reference Range Interpretation Comments ALT (test code = ALT) 18 See_Comment [Auto mated message] The system which ge nerated this result transmit lavon reference range : <=65. The reference range was not used to interpr et this result as dionne l/abnormal. [facility] [employer] [id number] 09:07:00 Test Item Value Reference Range Interpretation Comments AST (test code = AST) 28 See_Comment [Auto mated message] The system which ge nerated this result transmit lavon reference range : <=37. The reference range was not used to interpr et this result as dionne l/abnormal. [facility] [employer] [id number] 09:07:00 Test Item Value Reference Range Interpretation Comments Alk Phos (test code = Alk Phos) 44 39-136 [facility] [employer] [id number] 09:07:00 Test Item Value Reference Range Interpretation Comments Bili Total (test code = Bili Total) 1.1 0.2-1.3 [facility] [employer] [id number] 09:07:00 Test Item Value Reference Range Interpretation Comments AGAP (test code = AGAP) 10.2 10.0-20.0 [facility] [employer] [id number] 09:07:00 Test Item Value Reference Range Interpretation Comments B/C Ratio (test code = B/C Ratio) 31 1 6-25 [facility] [employer] [id number] 09:07:00 Test Item Value Reference Range Interpretation Comments Globulin (test code = Globulin) 3.1 2.7-4.2 [facility] [employer] [id number] 09:07:00 Test Item Value Reference Range Interpretation Comments A/G Ratio (test code = A/G Ratio) 0.8 1 0.7-1.6 [facility] [employer] [id number] 09:07:00 Test Item Value Reference Range Interpretation Comments eGFR (test code = eGFR) 59 [facility]gh[facility]YRGMJ9405[facility] 09:07:00 Test Item Value Reference Range Interpretation Comments WBC (test code = WBC) 7.2 3.7-10.4 [facility] CenterUteptuyOCANXLHEIN9713-67-08 09:07:00 Test Item Value Reference Range Interpretation Comments RBC (test code = RBC) 3.06 4.20-5.40 [place] 325412-07-27 09:07:00 Test Item Value Reference Range Interpretation Comments Hgb (test code = Hgb) 7.4 12.0-16.0 [place] 325412-07-27 09:07:00 Test Item Value Reference Range Interpretation Comments Hct (test code = Hct) 22.5 36.0-48.0 [place] 325412-07-27 09:07:00 Test Item Value Reference Range Interpretation Comments MCV (test code = MCV) 73.6 80.0-98.0 [place] 325412-07-27 09:07:00 Test Item Value Reference Range Interpretation Comments MCH (test code = MCH) 24.2 pg 27.0-31.0 [place] 325412-07-27 09:07:00 Test Item Value Reference Range Interpretation Comments MCHC (test code = MCHC) 32.9 32.0-36.0 [place] 325412-07-27 09:07:00 Test Item Value Reference Range Interpretation Comments RDW (test code = RDW) 20.8 11.5-14.5 [place] 325412-07-27 09:07:00 Test Item Value Reference Range Interpretation Comments Platelet (test code = Platelet) 286 133-450 [facility] CampusFxkzvghIOULBJRBCR7556-06-31 09:07:00 Test Item Value Reference Range Interpretation Comments MPV (test code = MPV) 7.4 7.4-10.4 [place] 325412-07-27 09:07:00 Test Item Value Reference Range Interpretation Comments Segs (test code = Segs) 73.8 45.0-75.0 [place] 325412-07-27 09:07:00 Test Item Value Reference Range Interpretation Comments Lymphocytes (test code = Lymphocytes) 17.2 20.0-40.0 [place] 325412-07-27 09:07:00 Test Item Value Reference Range Interpretation Comments Monocytes (test code = Monocytes) 8.8 2.0-12.0 [place] 325412-07-27 09:07:00 Test Item Value Reference Range Interpretation Comments Neutrophils # (test code = Neutrophils 5.3 1.5-8.1 #) [place] 325412-07-27 09:07:00 Test Item Value Reference Range Interpretation Comments Lymphocytes # (test code = Lymphocytes 1.2 1.0-5.5 #) [place] 325412-07-27 09:07:00 Test Item Value Reference Range Interpretation Comments Monocytes # (test code 0.6 See_Comment [Aut omated message] The = Monocytes #) system which generated this result tra nsmitted reference range : <=0.8. The reference r hugo was not used to int erpret this result as normal/abnormal . [place] 325412-07-27 09:07:00 Test Item Value Reference Range Interpretation Comments Microcyte (test code = 1+ *ABN*(06/15/22 Microcyte) 4:07 AM) [place] 480482-07-27 09:07:00 Test Item Value Reference Range Interpretation Comments Glucose Lvl (test code = Glucose Lvl) 108 70-99 [place] 480482-07-27 09:07:00 Test Item Value Reference Range Interpretation Comments BUN (test code = BUN) 29 06-10 [place] 480482-07-27 09:07:00 Test Item Value Reference Range Interpretation Comments Creatinine Lvl (test code = Creatinine 0.94 0.50-1.40 Lvl) [place] 480482-07-27 09:07:00 Test Item Value Reference Range Interpretation Comments Sodium Lvl (test code = Sodium Lvl) 131 135-145 [place] 480482-07-27 09:07:00 Test Item Value Reference Range Interpretation Comments Potassium Lvl (test code = Potassium 3.2 3.5-5.1 Lvl) [place] 480482-07-27 09:07:00 Test Item Value Reference Range Interpretation Comments Chloride Lvl (test code = Chloride Lvl) 93 95-109 [place] 480482-07-27 09:07:00 Test Item Value Reference Range Interpretation Comments CO2 (test code = CO2) 31 24-32 [place] 480482-07-27 09:07:00 Test Item Value Reference Range Interpretation Comments Calcium Lvl (test code = Calcium Lvl) 8.0 8.5-10.5 [place] 480482-07-27 09:07:00 Test Item Value Reference Range Interpretation Comments Total Protein (test code = Total 5.7 6.4-8.4 Protein) [facility] [id number] 09:07:00 Test Item Value Reference Range Interpretation Comments Albumin Lvl (test code = Albumin Lvl) 2.6 3.5-5.0 [facility] [id number] 09:07:00 Test Item Value Reference Range Interpretation Comments ALT (test code = ALT) 18 See_Comment [Auto mated message] The system which ge nerated this result transmit lavon reference range : <=65. The reference range was not used to interpr et this result as dionne l/abnormal. [facility] [employer] [id number] 09:07:00 Test Item Value Reference Range Interpretation Comments AST (test code = AST) 28 See_Comment [Auto mated message] The system which ge nerated this result transmit lavon reference range : <=37. The reference range was not used to interpr et this result as dionne l/abnormal. [facility] [employer] [id number] 09:07:00 Test Item Value Reference Range Interpretation Comments Alk Phos (test code = Alk Phos) 44 39-136 [facility] [employer] [id number] 09:07:00 Test Item Value Reference Range Interpretation Comments Bili Total (test code = Bili Total) 1.1 0.2-1.3 [facility] [employer] [id number] 09:07:00 Test Item Value Reference Range Interpretation Comments AGAP (test code = AGAP) 10.2 10.0-20.0 [facility] [employer] [id number] 09:07:00 Test Item Value Reference Range Interpretation Comments B/C Ratio (test code = B/C Ratio) 31 1 6-25 [facility] [employer] [id number] 09:07:00 Test Item Value Reference Range Interpretation Comments Globulin (test code = Globulin) 3.1 2.7-4.2 [facility] [id number] 09:07:00 Test Item Value Reference Range Interpretation Comments A/G Ratio (test code = A/G Ratio) 0.8 1 0.7-1.6 [facility] [employer] [id number] 09:07:00 Test Item Value Reference Range Interpretation Comments eGFR (test code = eGFR) 59 [facility] CampusTtmuricFJKLOVKFXT3621-81-91 09:07:00 Test Item Value Reference Range Interpretation Comments WBC (test code = WBC) 7.2 3.7-10.4 [facility] CampusHzlmkxyEWUQUZJBGM5183-09-23 09:07:00 Test Item Value Reference Range Interpretation Comments RBC (test code = RBC) 3.06 4.20-5.40 [facility] CampusDkhsrxhGKCJNVISRQ2738-48-15 09:07:00 Test Item Value Reference Range Interpretation Comments Hgb (test code = Hgb) 7.4 12.0-16.0 [facility] CampusKnyucwdBZMAONXHEC7973-75-60 09:07:00 Test Item Value Reference Range Interpretation Comments Hct (test code = Hct) 22.5 36.0-48.0 [facility] CampusJcysshpVREFZGOQUZ3636-37-59 09:07:00 Test Item Value Reference Range Interpretation Comments MCV (test code = MCV) 73.6 80.0-98.0 [facility] CampusBytdizbIUFHLSFVPX5732-47-62 09:07:00 Test Item Value Reference Range Interpretation Comments MCH (test code = MCH) 24.2 pg 27.0-31.0 [facility] CampusAfcxiwpEFNMOTSKYU2562-16-53 09:07:00 Test Item Value Reference Range Interpretation Comments MCHC (test code = MCHC) 32.9 32.0-36.0 [facility] CampusXtzbeqfNBTJJTWCEM2466-41-98 09:07:00 Test Item Value Reference Range Interpretation Comments RDW (test code = RDW) 20.8 11.5-14.5 [facility] CampusCwgeyyoRPJHTMLQQM4598-53-02 09:07:00 Test Item Value Reference Range Interpretation Comments Platelet (test code = Platelet) 286 133-450 [facility] CampusCurtvfbYPCOEBWWXH6568-06-13 09:07:00 Test Item Value Reference Range Interpretation Comments MPV (test code = MPV) 7.4 7.4-10.4 [facility] CampusTonoocqQWOTZGEJOD9471-14-17 09:07:00 Test Item Value Reference Range Interpretation Comments Segs (test code = Segs) 73.8 45.0-75.0 [facility] CampusGbzyulyOYGOBCEREL8401-15-28 09:07:00 Test Item Value Reference Range Interpretation Comments Lymphocytes (test code = Lymphocytes) 17.2 20.0-40.0 [place] [address]-07-27 09:07:00 Test Item Value Reference Range Interpretation Comments Monocytes (test code = Monocytes) 8.8 2.0-12.0 [place] 325412-07-27 09:07:00 Test Item Value Reference Range Interpretation Comments Neutrophils # (test code = Neutrophils 5.3 1.5-8.1 #) [place] [address]-07-27 09:07:00 Test Item Value Reference Range Interpretation Comments Lymphocytes # (test code = Lymphocytes 1.2 1.0-5.5 #) [place] [address]-07-27 09:07:00 Test Item Value Reference Range Interpretation Comments Monocytes # (test code 0.6 See_Comment [Aut omated message] The = Monocytes #) system which generated this result tra nsmitted reference range : <=0.8. The reference r hugo was not used to int erpret this result as normal/abnormal . [place] 325412-07-27 09:07:00 Test Item Value Reference Range Interpretation Comments Microcyte (test code = 1+ *ABN*(06/15/22 Microcyte) 4:07 AM) [place] 480482-07-27 09:07:00 Test Item Value Reference Range Interpretation Comments Glucose Lvl (test code = Glucose Lvl) 108 70-99 [place] 480482-07-27 09:07:00 Test Item Value Reference Range Interpretation Comments BUN (test code = BUN) 29 06-10 [place] 480482-07-27 09:07:00 Test Item Value Reference Range Interpretation Comments Creatinine Lvl (test code = Creatinine 0.94 0.50-1.40 Lvl) [place] 480482-07-27 09:07:00 Test Item Value Reference Range Interpretation Comments Sodium Lvl (test code = Sodium Lvl) 131 135-145 [place] 480482-07-27 09:07:00 Test Item Value Reference Range Interpretation Comments Potassium Lvl (test code = Potassium 3.2 3.5-5.1 Lvl) [place] 480482-07-27 09:07:00 Test Item Value Reference Range Interpretation Comments Chloride Lvl (test code = Chloride Lvl) 93 95-109 [place] 480482-07-27 09:07:00 Test Item Value Reference Range Interpretation Comments CO2 (test code = CO2) 31 24-32 [place] 480482-07-27 09:07:00 Test Item Value Reference Range Interpretation Comments Calcium Lvl (test code = Calcium Lvl) 8.0 8.5-10.5 [place] 480482-07-27 09:07:00 Test Item Value Reference Range Interpretation Comments Total Protein (test code = Total 5.7 6.4-8.4 Protein) [place] 480482-07-27 09:07:00 Test Item Value Reference Range Interpretation Comments Albumin Lvl (test code = Albumin Lvl) 2.6 3.5-5.0 [place] 480482-07-27 09:07:00 Test Item Value Reference Range Interpretation Comments ALT (test code = ALT) 18 See_Comment [Auto mated message] The system which ge nerated this result transmit lavon reference range : <=65. The reference range was not used to interpr et this result as dionne l/abnormal. [place] 480482-07-27 09:07:00 Test Item Value Reference Range Interpretation Comments AST (test code = AST) 28 See_Comment [Auto mated message] The system which ge nerated this result transmit lavon reference range : <=37. The reference range was not used to interpr et this result as dionne l/abnormal. [facility]2022-07-27 09:07:00 Test Item Value Reference Range Interpretation Comments Alk Phos (test code = Alk Phos) 44 39-136 [place] 480482-07-27 09:07:00 Test Item Value Reference Range Interpretation Comments Bili Total (test code = Bili Total) 1.1 0.2-1.3 [place] 480482-07-27 09:07:00 Test Item Value Reference Range Interpretation Comments AGAP (test code = AGAP) 10.2 10.0-20.0 [place] 480482-07-27 09:07:00 Test Item Value Reference Range Interpretation Comments B/C Ratio (test code = B/C Ratio) 31 1 6-25 [place] 480482-07-27 09:07:00 Test Item Value Reference Range Interpretation Comments Globulin (test code = Globulin) 3.1 2.7-4.2 [facility]2022-07-27 09:07:00 Test Item Value Reference Range Interpretation Comments A/G Ratio (test code = A/G Ratio) 0.8 1 0.7-1.6 [facility]2022-07-27 09:07:00 Test Item Value Reference Range Interpretation Comments eGFR (test code = eGFR) 59 [place] 325412-07-27 09:07:00 Test Item Value Reference Range Interpretation Comments WBC (test code = WBC) 7.2 3.7-10.4 [place] 325412-07-27 09:07:00 Test Item Value Reference Range Interpretation Comments RBC (test code = RBC) 3.06 4.20-5.40 [place] 325412-07-27 09:07:00 Test Item Value Reference Range Interpretation Comments Hgb (test code = Hgb) 7.4 12.0-16.0 [place] 325412-07-27 09:07:00 Test Item Value Reference Range Interpretation Comments Hct (test code = Hct) 22.5 36.0-48.0 [place] 325412-07-27 09:07:00 Test Item Value Reference Range Interpretation Comments MCV (test code = MCV) 73.6 80.0-98.0 [place] 325412-07-27 09:07:00 Test Item Value Reference Range Interpretation Comments MCH (test code = MCH) 24.2 pg 27.0-31.0 [place] 325412-07-27 09:07:00 Test Item Value Reference Range Interpretation Comments MCHC (test code = MCHC) 32.9 32.0-36.0 [place] 325412-07-27 09:07:00 Test Item Value Reference Range Interpretation Comments RDW (test code = RDW) 20.8 11.5-14.5 [place] 325412-07-27 09:07:00 Test Item Value Reference Range Interpretation Comments Platelet (test code = Platelet) 286 133-450 [place] 325412-07-27 09:07:00 Test Item Value Reference Range Interpretation Comments MPV (test code = MPV) 7.4 7.4-10.4 [place] 325412-07-27 09:07:00 Test Item Value Reference Range Interpretation Comments Segs (test code = Segs) 73.8 45.0-75.0 [place] 325412-07-27 09:07:00 Test Item Value Reference Range Interpretation Comments Lymphocytes (test code = Lymphocytes) 17.2 20.0-40.0 [place] 325412-07-27 09:07:00 Test Item Value Reference Range Interpretation Comments Monocytes (test code = Monocytes) 8.8 2.0-12.0 [place] 325412-07-27 09:07:00 Test Item Value Reference Range Interpretation Comments Neutrophils # (test code = Neutrophils 5.3 1.5-8.1 #) [place] 325412-07-27 09:07:00 Test Item Value Reference Range Interpretation Comments Lymphocytes # (test code = Lymphocytes 1.2 1.0-5.5 #) [place] 325412-07-27 09:07:00 Test Item Value Reference Range Interpretation Comments Monocytes # (test code 0.6 See_Comment [Aut omated message] The = Monocytes #) system which generated this result tra nsmitted reference range : <=0.8. The reference r hugo was not used to int erpret this result as normal/abnormal . [place] 325412-07-27 09:07:00 Test Item Value Reference Range Interpretation Comments Microcyte (test code = 1+ *ABN*(06/15/22 Microcyte) 4:07 AM) [place] 480482-07-27 09:07:00 Test Item Value Reference Range Interpretation Comments Glucose Lvl (test code = Glucose Lvl) 108 70-99 [facility]2022-07-27 09:07:00 Test Item Value Reference Range Interpretation Comments BUN (test code = BUN) 29 7-22 [place] 480482-07-27 09:07:00 Test Item Value Reference Range Interpretation Comments Creatinine Lvl (test code = Creatinine 0.94 0.50-1.40 Lvl) [place] 480482-07-27 09:07:00 Test Item Value Reference Range Interpretation Comments Sodium Lvl (test code = Sodium Lvl) 131 135-145 [place] 480482-07-27 09:07:00 Test Item Value Reference Range Interpretation Comments Potassium Lvl (test code = Potassium 3.2 3.5-5.1 Lvl) [place] 480482-07-27 09:07:00 Test Item Value Reference Range Interpretation Comments Chloride Lvl (test code = Chloride Lvl) 93 95-109 [place] 480482-07-27 09:07:00 Test Item Value Reference Range Interpretation Comments CO2 (test code = CO2) 31 24-32 [place] 480482-07-27 09:07:00 Test Item Value Reference Range Interpretation Comments Calcium Lvl (test code = Calcium Lvl) 8.0 8.5-10.5 [place] 480482-07-27 09:07:00 Test Item Value Reference Range Interpretation Comments Total Protein (test code = Total 5.7 6.4-8.4 Protein) [place] 480482-07-27 09:07:00 Test Item Value Reference Range Interpretation Comments Albumin Lvl (test code = Albumin Lvl) 2.6 3.5-5.0 [place] 480482-07-27 09:07:00 Test Item Value Reference Range Interpretation Comments ALT (test code = ALT) 18 See_Comment [Auto mated message] The system which ge nerated this result transmit lavon reference range : <=65. The reference range was not used to interpr et this result as dionne l/abnormal. [place] 480482-07-27 09:07:00 Test Item Value Reference Range Interpretation Comments AST (test code = AST) 28 See_Comment [Auto mated message] The system which ge nerated this result transmit lavon reference range : <=37. The reference range was not used to interpr et this result as dionne l/abnormal. [place] 480482-07-27 09:07:00 Test Item Value Reference Range Interpretation Comments Alk Phos (test code = Alk Phos) 44 39-136 [place] 480482-07-27 09:07:00 Test Item Value Reference Range Interpretation Comments Bili Total (test code = Bili Total) 1.1 0.2-1.3 [place] 480482-07-27 09:07:00 Test Item Value Reference Range Interpretation Comments AGAP (test code = AGAP) 10.2 10.0-20.0 [place] 480482-07-27 09:07:00 Test Item Value Reference Range Interpretation Comments B/C Ratio (test code = B/C Ratio) 31 1 6-25 [place] 480482-07-27 09:07:00 Test Item Value Reference Range Interpretation Comments Globulin (test code = Globulin) 3.1 2.7-4.2 [place] 480482-07-27 09:07:00 Test Item Value Reference Range Interpretation Comments A/G Ratio (test code = A/G Ratio) 0.8 1 0.7-1.6 [place] 480482-07-27 09:07:00 Test Item Value Reference Range Interpretation Comments eGFR (test code = eGFR) 59 [place] 325412-07-27 09:07:00 Test Item Value Reference Range Interpretation Comments WBC (test code = WBC) 7.2 3.7-10.4 [place] 325412-07-27 09:07:00 Test Item Value Reference Range Interpretation Comments RBC (test code = RBC) 3.06 4.20-5.40 [place] 325412-07-27 09:07:00 Test Item Value Reference Range Interpretation Comments Hgb (test code = Hgb) 7.4 12.0-16.0 [place] 325412-07-27 09:07:00 Test Item Value Reference Range Interpretation Comments Hct (test code = Hct) 22.5 36.0-48.0 [place] 325412-07-27 09:07:00 Test Item Value Reference Range Interpretation Comments MCV (test code = MCV) 73.6 80.0-98.0 [place] 325412-07-27 09:07:00 Test Item Value Reference Range Interpretation Comments MCH (test code = MCH) 24.2 pg 27.0-31.0 [place] 325412-07-27 09:07:00 Test Item Value Reference Range Interpretation Comments MCHC (test code = MCHC) 32.9 32.0-36.0 [place] 325412-07-27 09:07:00 Test Item Value Reference Range Interpretation Comments RDW (test code = RDW) 20.8 11.5-14.5 [place] 325412-07-27 09:07:00 Test Item Value Reference Range Interpretation Comments Platelet (test code = Platelet) 286 133-450 [facility]WmzoqwmVKBHDLGUDY0458-19-56 09:07:00 Test Item Value Reference Range Interpretation Comments MPV (test code = MPV) 7.4 7.4-10.4 [place] 325412-07-27 09:07:00 Test Item Value Reference Range Interpretation Comments Segs (test code = Segs) 73.8 45.0-75.0 [place] 325412-07-27 09:07:00 Test Item Value Reference Range Interpretation Comments Lymphocytes (test code = Lymphocytes) 17.2 20.0-40.0 [place] 325412-07-27 09:07:00 Test Item Value Reference Range Interpretation Comments Monocytes (test code = Monocytes) 8.8 2.0-12.0 [place] 325412-07-27 09:07:00 Test Item Value Reference Range Interpretation Comments Neutrophils # (test code = Neutrophils 5.3 1.5-8.1 #) [place] 325412-07-27 09:07:00 Test Item Value Reference Range Interpretation Comments Lymphocytes # (test code = Lymphocytes 1.2 1.0-5.5 #) [place] 325412-07-27 09:07:00 Test Item Value Reference Range Interpretation Comments Monocytes # (test code 0.6 See_Comment [Aut omated message] The = Monocytes #) system which generated this result tra nsmitted reference range : <=0.8. The reference r hugo was not used to int erpret this result as normal/abnormal . [facility] [id number] 09:07:00 Test Item Value Reference Range Interpretation Comments Microcyte (test code = 1+ *ABN*(06/15/22 Microcyte) 4:07 AM) [place] 480482-07-27 09:07:00 Test Item Value Reference Range Interpretation Comments Glucose Lvl (test code = Glucose Lvl) 108 70-99 [facility]2022-07-27 09:07:00 Test Item Value Reference Range Interpretation Comments BUN (test code = BUN) 29 7-22 [place] 480482-07-27 09:07:00 Test Item Value Reference Range Interpretation Comments Creatinine Lvl (test code = Creatinine 0.94 0.50-1.40 Lvl) [place] 480482-07-27 09:07:00 Test Item Value Reference Range Interpretation Comments Sodium Lvl (test code = Sodium Lvl) 131 135-145 [place] 480482-07-27 09:07:00 Test Item Value Reference Range Interpretation Comments Potassium Lvl (test code = Potassium 3.2 3.5-5.1 Lvl) [place] 480482-07-27 09:07:00 Test Item Value Reference Range Interpretation Comments Chloride Lvl (test code = Chloride Lvl) 93 95-109 [place] [address]-07-27 09:07:00 Test Item Value Reference Range Interpretation Comments CO2 (test code = CO2) 31 24-32 [place] 480482-07-27 09:07:00 Test Item Value Reference Range Interpretation Comments Calcium Lvl (test code = Calcium Lvl) 8.0 8.5-10.5 [place] 480482-07-27 09:07:00 Test Item Value Reference Range Interpretation Comments Total Protein (test code = Total 5.7 6.4-8.4 Protein) [place] 480482-07-27 09:07:00 Test Item Value Reference Range Interpretation Comments Albumin Lvl (test code = Albumin Lvl) 2.6 3.5-5.0 [place] 480482-07-27 09:07:00 Test Item Value Reference Range Interpretation Comments ALT (test code = ALT) 18 See_Comment [Auto mated message] The system which ge nerated this result transmit lavon reference range : <=65. The reference range was not used to interpr et this result as dionne l/abnormal. [place] 480482-07-27 09:07:00 Test Item Value Reference Range Interpretation Comments AST (test code = AST) 28 See_Comment [Auto mated message] The system which ge nerated this result transmit lavon reference range : <=37. The reference range was not used to interpr et this result as dionne l/abnormal. [place] [address]-07-27 09:07:00 Test Item Value Reference Range Interpretation Comments Alk Phos (test code = Alk Phos) 44 39-136 [place] 480482-07-27 09:07:00 Test Item Value Reference Range Interpretation Comments Bili Total (test code = Bili Total) 1.1 0.2-1.3 [facility]2022-07-27 09:07:00 Test Item Value Reference Range Interpretation Comments AGAP (test code = AGAP) 10.2 10.0-20.0 [place] 480482-07-27 09:07:00 Test Item Value Reference Range Interpretation Comments B/C Ratio (test code = B/C Ratio) 31 1 6-25 [place] 480482-07-27 09:07:00 Test Item Value Reference Range Interpretation Comments Globulin (test code = Globulin) 3.1 2.7-4.2 [place] 480482-07-27 09:07:00 Test Item Value Reference Range Interpretation Comments A/G Ratio (test code = A/G Ratio) 0.8 1 0.7-1.6 [facility]2022-07-27 09:07:00 Test Item Value Reference Range Interpretation Comments eGFR (test code = eGFR) 59 [facility] CampusEpuzpytLVLZHBFVYW8705-28-44 09:07:00 Test Item Value Reference Range Interpretation Comments WBC (test code = WBC) 7.2 3.7-10.4 [place] 325412-07-27 09:07:00 Test Item Value Reference Range Interpretation Comments RBC (test code = RBC) 3.06 4.20-5.40 [facility] CampusOqrdqhpNQMYWCUEXL4974-68-74 09:07:00 Test Item Value Reference Range Interpretation Comments Hgb (test code = Hgb) 7.4 12.0-16.0 [place] 325412-07-27 09:07:00 Test Item Value Reference Range Interpretation Comments Hct (test code = Hct) 22.5 36.0-48.0 [place] 325412-07-27 09:07:00 Test Item Value Reference Range Interpretation Comments MCV (test code = MCV) 73.6 80.0-98.0 [place] 325412-07-27 09:07:00 Test Item Value Reference Range Interpretation Comments MCH (test code = MCH) 24.2 pg 27.0-31.0 [place] 325412-07-27 09:07:00 Test Item Value Reference Range Interpretation Comments MCHC (test code = MCHC) 32.9 32.0-36.0 [facility] CampusMvoulwbKRFBDTYKYN5361-28-31 09:07:00 Test Item Value Reference Range Interpretation Comments RDW (test code = RDW) 20.8 11.5-14.5 [facility] CampusVztsxllSECUQEHDIT8875-97-71 09:07:00 Test Item Value Reference Range Interpretation Comments Platelet (test code = Platelet) 286 133-450 [facility] CampusTbvkpopQPSEYGTYJV5441-43-79 09:07:00 Test Item Value Reference Range Interpretation Comments MPV (test code = MPV) 7.4 7.4-10.4 [facility] CampusTbwtkbiZFXJFLCSXZ8624-97-29 09:07:00 Test Item Value Reference Range Interpretation Comments Segs (test code = Segs) 73.8 45.0-75.0 [place] 325412-07-27 09:07:00 Test Item Value Reference Range Interpretation Comments Lymphocytes (test code = Lymphocytes) 17.2 20.0-40.0 [place] 325412-07-27 09:07:00 Test Item Value Reference Range Interpretation Comments Monocytes (test code = Monocytes) 8.8 2.0-12.0 [facility] [id number] 09:07:00 Test Item Value Reference Range Interpretation Comments Neutrophils # (test code = Neutrophils 5.3 1.5-8.1 #) [facility] CampusCkcmhdeGQDQJUQJPN8622-29-13 09:07:00 Test Item Value Reference Range Interpretation Comments Lymphocytes # (test code = Lymphocytes 1.2 1.0-5.5 #) [place] 325412-07-27 09:07:00 Test Item Value Reference Range Interpretation Comments Monocytes # (test code 0.6 See_Comment [Aut omated message] The = Monocytes #) system which generated this result tra nsmitted reference range : <=0.8. The reference r hugo was not used to int erpret this result as normal/abnormal . [facility] CampusVunpoqaQJJDBHSVVX3743-94-72 09:07:00 Test Item Value Reference Range Interpretation Comments Microcyte (test code = 1+ *ABN*(06/15/22 Microcyte) 4:07 AM) [facility]2022-07-27 09:07:00 Test Item Value Reference Range Interpretation Comments Glucose Lvl (test code = Glucose Lvl) 108 70-99 [place] [address]-07-27 09:07:00 Test Item Value Reference Range Interpretation Comments BUN (test code = BUN) 29 7-22 [place] [address]-07-27 09:07:00 Test Item Value Reference Range Interpretation Comments Creatinine Lvl (test code = Creatinine 0.94 0.50-1.40 Lvl) [place] [address]-07-27 09:07:00 Test Item Value Reference Range Interpretation Comments Sodium Lvl (test code = Sodium Lvl) 131 135-145 [place] [address]-07-27 09:07:00 Test Item Value Reference Range Interpretation Comments Potassium Lvl (test code = Potassium 3.2 3.5-5.1 Lvl) [place] [address]-07-27 09:07:00 Test Item Value Reference Range Interpretation Comments Chloride Lvl (test code = Chloride Lvl) 93 95-109 [place] [address]-07-27 09:07:00 Test Item Value Reference Range Interpretation Comments CO2 (test code = CO2) 31 24-32 [place] 480482-07-27 09:07:00 Test Item Value Reference Range Interpretation Comments Calcium Lvl (test code = Calcium Lvl) 8.0 8.5-10.5 [place] [address]-07-27 09:07:00 Test Item Value Reference Range Interpretation Comments Total Protein (test code = Total 5.7 6.4-8.4 Protein) [place] [address]-07-27 09:07:00 Test Item Value Reference Range Interpretation Comments Albumin Lvl (test code = Albumin Lvl) 2.6 3.5-5.0 [place] [address]-07-27 09:07:00 Test Item Value Reference Range Interpretation Comments ALT (test code = ALT) 18 See_Comment [Auto mated message] The system which ge nerated this result transmit lavon reference range : <=65. The reference range was not used to interpr et this result as dionne l/abnormal. [place] [address]-07-27 09:07:00 Test Item Value Reference Range Interpretation Comments AST (test code = AST) 28 See_Comment [Auto mated message] The system which ge nerated this result transmit lavon reference range : <=37. The reference range was not used to interpr et this result as dionne l/abnormal. [facility]2022-07-27 09:07:00 Test Item Value Reference Range Interpretation Comments Alk Phos (test code = Alk Phos) 44 39-136 [place] 480482-07-27 09:07:00 Test Item Value Reference Range Interpretation Comments Bili Total (test code = Bili Total) 1.1 0.2-1.3 [place] 480482-07-27 09:07:00 Test Item Value Reference Range Interpretation Comments AGAP (test code = AGAP) 10.2 10.0-20.0 [place] 480482-07-27 09:07:00 Test Item Value Reference Range Interpretation Comments B/C Ratio (test code = B/C Ratio) 31 1 6-25 [place] 480482-07-27 09:07:00 Test Item Value Reference Range Interpretation Comments Globulin (test code = Globulin) 3.1 2.7-4.2 [place] 480482-07-27 09:07:00 Test Item Value Reference Range Interpretation Comments A/G Ratio (test code = A/G Ratio) 0.8 1 0.7-1.6 [place] 480482-07-27 09:07:00 Test Item Value Reference Range Interpretation Comments eGFR (test code = eGFR) 59 [facility] CampusWpntkpeYNYJUKXSXG3597-28-90 09:07:00 Test Item Value Reference Range Interpretation Comments WBC (test code = WBC) 7.2 3.7-10.4 [place] 325412-07-27 09:07:00 Test Item Value Reference Range Interpretation Comments RBC (test code = RBC) 3.06 4.20-5.40 [place] 325412-07-27 09:07:00 Test Item Value Reference Range Interpretation Comments Hgb (test code = Hgb) 7.4 12.0-16.0 [place] 325412-07-27 09:07:00 Test Item Value Reference Range Interpretation Comments Hct (test code = Hct) 22.5 36.0-48.0 [place] 325412-07-27 09:07:00 Test Item Value Reference Range Interpretation Comments MCV (test code = MCV) 73.6 80.0-98.0 [place] [address]-07-27 09:07:00 Test Item Value Reference Range Interpretation Comments MCH (test code = MCH) 24.2 pg 27.0-31.0 [place] 325412-07-27 09:07:00 Test Item Value Reference Range Interpretation Comments MCHC (test code = MCHC) 32.9 32.0-36.0 [place] 325412-07-27 09:07:00 Test Item Value Reference Range Interpretation Comments RDW (test code = RDW) 20.8 11.5-14.5 [place] 325412-07-27 09:07:00 Test Item Value Reference Range Interpretation Comments Platelet (test code = Platelet) 286 133-450 [place] 325412-07-27 09:07:00 Test Item Value Reference Range Interpretation Comments MPV (test code = MPV) 7.4 7.4-10.4 [place] 325412-07-27 09:07:00 Test Item Value Reference Range Interpretation Comments Segs (test code = Segs) 73.8 45.0-75.0 [facility] [id number] 09:07:00 Test Item Value Reference Range Interpretation Comments Lymphocytes (test code = Lymphocytes) 17.2 20.0-40.0 [place] 325412-07-27 09:07:00 Test Item Value Reference Range Interpretation Comments Monocytes (test code = Monocytes) 8.8 2.0-12.0 [place] 325412-07-27 09:07:00 Test Item Value Reference Range Interpretation Comments Neutrophils # (test code = Neutrophils 5.3 1.5-8.1 #) [facility] CampusXydghiqQRISLKDZWY7740-94-79 09:07:00 Test Item Value Reference Range Interpretation Comments Lymphocytes # (test code = Lymphocytes 1.2 1.0-5.5 #) [place] 325412-07-27 09:07:00 Test Item Value Reference Range Interpretation Comments Monocytes # (test code 0.6 See_Comment [Aut omated message] The = Monocytes #) system which generated this result tra nsmitted reference range : <=0.8. The reference r hugo was not used to int erpret this result as normal/abnormal . [facility] CampusHqhpykoDQHSMTKNQR3545-34-00 09:07:00 Test Item Value Reference Range Interpretation Comments Microcyte (test code = 1+ *ABN*(06/15/22 Microcyte) 4:07 AM) [place] [address]-07-27 09:07:00 Test Item Value Reference Range Interpretation Comments Glucose Lvl (test code = Glucose Lvl) 108 70-99 [place] 480482-07-27 09:07:00 Test Item Value Reference Range Interpretation Comments BUN (test code = BUN) 29 -22 [place] 480482-07-27 09:07:00 Test Item Value Reference Range Interpretation Comments Creatinine Lvl (test code = Creatinine 0.94 0.50-1.40 Lvl) [place] 480482-07-27 09:07:00 Test Item Value Reference Range Interpretation Comments Sodium Lvl (test code = Sodium Lvl) 131 135-145 [place] 480482-07-27 09:07:00 Test Item Value Reference Range Interpretation Comments Potassium Lvl (test code = Potassium 3.2 3.5-5.1 Lvl) [place] 480482-07-27 09:07:00 Test Item Value Reference Range Interpretation Comments Chloride Lvl (test code = Chloride Lvl) 93 95-109 [place] 480482-07-27 09:07:00 Test Item Value Reference Range Interpretation Comments CO2 (test code = CO2) 31 24-32 [place] 480482-07-27 09:07:00 Test Item Value Reference Range Interpretation Comments Calcium Lvl (test code = Calcium Lvl) 8.0 8.5-10.5 [place] 480482-07-27 09:07:00 Test Item Value Reference Range Interpretation Comments Total Protein (test code = Total 5.7 6.4-8.4 Protein) [place] 480482-07-27 09:07:00 Test Item Value Reference Range Interpretation Comments Albumin Lvl (test code = Albumin Lvl) 2.6 3.5-5.0 [place] 480482-07-27 09:07:00 Test Item Value Reference Range Interpretation Comments ALT (test code = ALT) 18 See_Comment [Auto mated message] The system which ge nerated this result transmit lavon reference range : <=65. The reference range was not used to interpr et this result as dionne l/abnormal. [place] 480482-07-27 09:07:00 Test Item Value Reference Range Interpretation Comments AST (test code = AST) 28 See_Comment [Auto mated message] The system which ge nerated this result transmit lavon reference range : <=37. The reference range was not used to interpr et this result as dionne l/abnormal. [place] 480482-07-27 09:07:00 Test Item Value Reference Range Interpretation Comments Alk Phos (test code = Alk Phos) 44 39-136 [place] 480482-07-27 09:07:00 Test Item Value Reference Range Interpretation Comments Bili Total (test code = Bili Total) 1.1 0.2-1.3 [place] 480482-07-27 09:07:00 Test Item Value Reference Range Interpretation Comments AGAP (test code = AGAP) 10.2 10.0-20.0 [place] 480482-07-27 09:07:00 Test Item Value Reference Range Interpretation Comments B/C Ratio (test code = B/C Ratio) 31 1 6-25 [place] 480482-07-27 09:07:00 Test Item Value Reference Range Interpretation Comments Globulin (test code = Globulin) 3.1 2.7-4.2 [place] 480482-07-27 09:07:00 Test Item Value Reference Range Interpretation Comments A/G Ratio (test code = A/G Ratio) 0.8 1 0.7-1.6 [place] 480482-07-27 09:07:00 Test Item Value Reference Range Interpretation Comments eGFR (test code = eGFR) 59 [place] 325412-07-27 09:07:00 Test Item Value Reference Range Interpretation Comments WBC (test code = WBC) 7.2 3.7-10.4 [place] 325412-07-27 09:07:00 Test Item Value Reference Range Interpretation Comments RBC (test code = RBC) 3.06 4.20-5.40 [place] 325412-07-27 09:07:00 Test Item Value Reference Range Interpretation Comments Hgb (test code = Hgb) 7.4 12.0-16.0 [place] [address]-07-27 09:07:00 Test Item Value Reference Range Interpretation Comments Hct (test code = Hct) 22.5 36.0-48.0 [place] 325412-07-27 09:07:00 Test Item Value Reference Range Interpretation Comments MCV (test code = MCV) 73.6 80.0-98.0 [place] 325412-07-27 09:07:00 Test Item Value Reference Range Interpretation Comments MCH (test code = MCH) 24.2 pg 27.0-31.0 [facility] [id number] 09:07:00 Test Item Value Reference Range Interpretation Comments MCHC (test code = MCHC) 32.9 32.0-36.0 [facility] CampusXltnhzjVLIHXMEMSU4182-75-43 09:07:00 Test Item Value Reference Range Interpretation Comments RDW (test code = RDW) 20.8 11.5-14.5 [place] 325412-07-27 09:07:00 Test Item Value Reference Range Interpretation Comments Platelet (test code = Platelet) 286 133-450 [facility] CampusJvhdvwhMIXZEQCLST8921-25-65 09:07:00 Test Item Value Reference Range Interpretation Comments MPV (test code = MPV) 7.4 7.4-10.4 [facility] CampusMvlgxqvGCDMCGXXGV4410-36-51 09:07:00 Test Item Value Reference Range Interpretation Comments Segs (test code = Segs) 73.8 45.0-75.0 [place] 325412-07-27 09:07:00 Test Item Value Reference Range Interpretation Comments Lymphocytes (test code = Lymphocytes) 17.2 20.0-40.0 [place] 325412-07-27 09:07:00 Test Item Value Reference Range Interpretation Comments Monocytes (test code = Monocytes) 8.8 2.0-12.0 [place] 325412-07-27 09:07:00 Test Item Value Reference Range Interpretation Comments Neutrophils # (test code = Neutrophils 5.3 1.5-8.1 #) [facility] CampusLmmlrqjYNPSWGKAGR3554-51-81 09:07:00 Test Item Value Reference Range Interpretation Comments Lymphocytes # (test code = Lymphocytes 1.2 1.0-5.5 #) [place] 325412-07-27 09:07:00 Test Item Value Reference Range Interpretation Comments Monocytes # (test code 0.6 See_Comment [Aut omated message] The = Monocytes #) system which generated this result tra nsmitted reference range : <=0.8. The reference r hugo was not used to int erpret this result as normal/abnormal . [facility] CampusEvgodhzRVRJZPAHAI4786-85-13 09:07:00 Test Item Value Reference Range Interpretation Comments Microcyte (test code = 1+ *ABN*(06/15/22 Microcyte) 4:07 AM) [place] [address]-07-27 09:07:00 Test Item Value Reference Range Interpretation Comments Glucose Lvl (test code = Glucose Lvl) 108 70-99 [place] 480482-07-27 09:07:00 Test Item Value Reference Range Interpretation Comments BUN (test code = BUN) 29 - [place] 480482-07-27 09:07:00 Test Item Value Reference Range Interpretation Comments Creatinine Lvl (test code = Creatinine 0.94 0.50-1.40 Lvl) [place] 480482-07-27 09:07:00 Test Item Value Reference Range Interpretation Comments Sodium Lvl (test code = Sodium Lvl) 131 135-145 [place] 480482-07-27 09:07:00 Test Item Value Reference Range Interpretation Comments Potassium Lvl (test code = Potassium 3.2 3.5-5.1 Lvl) [place] 480482-07-27 09:07:00 Test Item Value Reference Range Interpretation Comments Chloride Lvl (test code = Chloride Lvl) 93 95-109 [place] 480482-07-27 09:07:00 Test Item Value Reference Range Interpretation Comments CO2 (test code = CO2) 31 24-32 [place] 480482-07-27 09:07:00 Test Item Value Reference Range Interpretation Comments Calcium Lvl (test code = Calcium Lvl) 8.0 8.5-10.5 [place] 480482-07-27 09:07:00 Test Item Value Reference Range Interpretation Comments Total Protein (test code = Total 5.7 6.4-8.4 Protein) [place] 480482-07-27 09:07:00 Test Item Value Reference Range Interpretation Comments Albumin Lvl (test code = Albumin Lvl) 2.6 3.5-5.0 [facility] [employer] [id number] 09:07:00 Test Item Value Reference Range Interpretation Comments ALT (test code = ALT) 18 See_Comment [Auto mated message] The system which ge nerated this result transmit lavon reference range : <=65. The reference range was not used to interpr et this result as dionne l/abnormal. [facility] [employer] [id number] 09:07:00 Test Item Value Reference Range Interpretation Comments AST (test code = AST) 28 See_Comment [Auto mated message] The system which ge nerated this result transmit lavon reference range : <=37. The reference range was not used to interpr et this result as dionne l/abnormal. [employer] [id number] 09:07:00 Test Item Value Reference Range Interpretation Comments Alk Phos (test code = Alk Phos) 44 39-136 [facility] [employer] [id number] 09:07:00 Test Item Value Reference Range Interpretation Comments Bili Total (test code = Bili Total) 1.1 0.2-1.3 [facility] [employer] [id number] 09:07:00 Test Item Value Reference Range Interpretation Comments AGAP (test code = AGAP) 10.2 10.0-20.0 [facility] [employer] Alert2022-07-27 09:07:00 Test Item Value Reference Range Interpretation Comments B/C Ratio (test code = B/C Ratio) 31 1 6-25 [facility] [employer] [id number] 09:07:00 Test Item Value Reference Range Interpretation Comments Globulin (test code = Globulin) 3.1 2.7-4.2 [facility] [employer] Alert2022-07-27 09:07:00 Test Item Value Reference Range Interpretation Comments A/G Ratio (test code = A/G Ratio) 0.8 1 0.7-1.6 [facility] [employer] [id number] 09:07:00 Test Item Value Reference Range Interpretation Comments eGFR (test code = eGFR) 59 [facility] [id number] 09:07:00 Test Item Value Reference Range Interpretation Comments WBC (test code = WBC) 7.2 3.7-10.4 [facility] [id number] 09:07:00 Test Item Value Reference Range Interpretation Comments RBC (test code = RBC) 3.06 4.20-5.40 [facility]DgvcfxmMMSZTDNQOK6739-06-17 09:07:00 Test Item Value Reference Range Interpretation Comments Hgb (test code = Hgb) 7.4 12.0-16.0 [place] 325412-07-27 09:07:00 Test Item Value Reference Range Interpretation Comments Hct (test code = Hct) 22.5 36.0-48.0 [place] 325412-07-27 09:07:00 Test Item Value Reference Range Interpretation Comments MCV (test code = MCV) 73.6 80.0-98.0 [place] 325412-07-27 09:07:00 Test Item Value Reference Range Interpretation Comments MCH (test code = MCH) 24.2 pg 27.0-31.0 [facility] CampusDowopqzKPYFJNCDJG4629-73-04 09:07:00 Test Item Value Reference Range Interpretation Comments MCHC (test code = MCHC) 32.9 32.0-36.0 [place] 325412-07-27 09:07:00 Test Item Value Reference Range Interpretation Comments RDW (test code = RDW) 20.8 11.5-14.5 [place] 325412-07-27 09:07:00 Test Item Value Reference Range Interpretation Comments Platelet (test code = Platelet) 286 133-450 [facility] CampusOndgqugDFCXFJSTZB6791-23-18 09:07:00 Test Item Value Reference Range Interpretation Comments MPV (test code = MPV) 7.4 7.4-10.4 [place] 325412-07-27 09:07:00 Test Item Value Reference Range Interpretation Comments Segs (test code = Segs) 73.8 45.0-75.0 [place] 325412-07-27 09:07:00 Test Item Value Reference Range Interpretation Comments Lymphocytes (test code = Lymphocytes) 17.2 20.0-40.0 [place] 325412-07-27 09:07:00 Test Item Value Reference Range Interpretation Comments Monocytes (test code = Monocytes) 8.8 2.0-12.0 [place] 325412-07-27 09:07:00 Test Item Value Reference Range Interpretation Comments Neutrophils # (test code = Neutrophils 5.3 1.5-8.1 #) [place] 325412-07-27 09:07:00 Test Item Value Reference Range Interpretation Comments Lymphocytes # (test code = Lymphocytes 1.2 1.0-5.5 #) [place] 325412-07-27 09:07:00 Test Item Value Reference Range Interpretation Comments Monocytes # (test code 0.6 See_Comment [Aut omated message] The = Monocytes #) system which generated this result tra nsmitted reference range : <=0.8. The reference r hugo was not used to int erpret this result as normal/abnormal . [place] 325412-07-27 09:07:00 Test Item Value Reference Range Interpretation Comments Microcyte (test code = 1+ *ABN*(06/15/22 Microcyte) 4:07 AM) [place] 480482-07-27 09:07:00 Test Item Value Reference Range Interpretation Comments Glucose Lvl (test code = Glucose Lvl) 108 70-99 [place] 480482-07-27 09:07:00 Test Item Value Reference Range Interpretation Comments BUN (test code = BUN) 29 06-10 [place] 480482-07-27 09:07:00 Test Item Value Reference Range Interpretation Comments Creatinine Lvl (test code = Creatinine 0.94 0.50-1.40 Lvl) [place] 480482-07-27 09:07:00 Test Item Value Reference Range Interpretation Comments Sodium Lvl (test code = Sodium Lvl) 131 135-145 [place] 480482-07-27 09:07:00 Test Item Value Reference Range Interpretation Comments Potassium Lvl (test code = Potassium 3.2 3.5-5.1 Lvl) [place] 480482-07-27 09:07:00 Test Item Value Reference Range Interpretation Comments Chloride Lvl (test code = Chloride Lvl) 93 95-109 [place] 480482-07-27 09:07:00 Test Item Value Reference Range Interpretation Comments CO2 (test code = CO2) 31 24-32 [place] 480482-07-27 09:07:00 Test Item Value Reference Range Interpretation Comments Calcium Lvl (test code = Calcium Lvl) 8.0 8.5-10.5 [place] 480482-07-27 09:07:00 Test Item Value Reference Range Interpretation Comments Total Protein (test code = Total 5.7 6.4-8.4 Protein) [facility] [id number] 09:07:00 Test Item Value Reference Range Interpretation Comments Albumin Lvl (test code = Albumin Lvl) 2.6 3.5-5.0 [facility] [id number] 09:07:00 Test Item Value Reference Range Interpretation Comments ALT (test code = ALT) 18 See_Comment [Auto mated message] The system which ge nerated this result transmit lavon reference range : <=65. The reference range was not used to interpr et this result as dionne l/abnormal. [facility] [employer] [id number] 09:07:00 Test Item Value Reference Range Interpretation Comments AST (test code = AST) 28 See_Comment [Auto mated message] The system which ge nerated this result transmit lavon reference range : <=37. The reference range was not used to interpr et this result as dionne l/abnormal. [facility] [employer] [id number] 09:07:00 Test Item Value Reference Range Interpretation Comments Alk Phos (test code = Alk Phos) 44 39-136 [facility] [id number] 09:07:00 Test Item Value Reference Range Interpretation Comments Bili Total (test code = Bili Total) 1.1 0.2-1.3 [facility] [id number] 09:07:00 Test Item Value Reference Range Interpretation Comments AGAP (test code = AGAP) 10.2 10.0-20.0 [facility] [id number] 09:07:00 Test Item Value Reference Range Interpretation Comments B/C Ratio (test code = B/C Ratio) 31 1 6-25 [facility] [id number] 09:07:00 Test Item Value Reference Range Interpretation Comments Globulin (test code = Globulin) 3.1 2.7-4.2 [facility] [employer] [id number] 09:07:00 Test Item Value Reference Range Interpretation Comments A/G Ratio (test code = A/G Ratio) 0.8 1 0.7-1.6 [facility] [employer] [id number] 09:07:00 Test Item Value Reference Range Interpretation Comments eGFR (test code = eGFR) 59 [facility] CampusYtpxmsuZPRCCYZQTP7628-03-21 09:07:00 Test Item Value Reference Range Interpretation Comments WBC (test code = WBC) 7.2 3.7-10.4 [facility] CampusRsaznjlWYOOHPPOLF2438-00-45 09:07:00 Test Item Value Reference Range Interpretation Comments RBC (test code = RBC) 3.06 4.20-5.40 [facility] CampusTegpsbcZZEKZBBTJJ2579-36-31 09:07:00 Test Item Value Reference Range Interpretation Comments Hgb (test code = Hgb) 7.4 12.0-16.0 [facility] CampusEmpkhcdXHCJNXVJHA7157-00-70 09:07:00 Test Item Value Reference Range Interpretation Comments Hct (test code = Hct) 22.5 36.0-48.0 [place] 325412-07-27 09:07:00 Test Item Value Reference Range Interpretation Comments MCV (test code = MCV) 73.6 80.0-98.0 [facility] CampusTcgevifSLLETXMDLM3347-01-04 09:07:00 Test Item Value Reference Range Interpretation Comments MCH (test code = MCH) 24.2 pg 27.0-31.0 [facility] CampusAhobqpdUJMMKPTYXS3265-26-52 09:07:00 Test Item Value Reference Range Interpretation Comments MCHC (test code = MCHC) 32.9 32.0-36.0 [facility] CampusHphpifcYSHRJSPRLO6923-59-00 09:07:00 Test Item Value Reference Range Interpretation Comments RDW (test code = RDW) 20.8 11.5-14.5 [facility] CampusIxqahnlRARTOQKSVH0835-67-46 09:07:00 Test Item Value Reference Range Interpretation Comments Platelet (test code = Platelet) 286 133-450 [facility] CampusKreigbcHWVRJSVVTL2895-75-01 09:07:00 Test Item Value Reference Range Interpretation Comments MPV (test code = MPV) 7.4 7.4-10.4 [facility] CampusBhedzvwVBTYSDONVJ7666-05-96 09:07:00 Test Item Value Reference Range Interpretation Comments Segs (test code = Segs) 73.8 45.0-75.0 [facility] CampusUxjmtunZXVMVPNXBS4427-73-87 09:07:00 Test Item Value Reference Range Interpretation Comments Lymphocytes (test code = Lymphocytes) 17.2 20.0-40.0 [place] 325412-07-27 09:07:00 Test Item Value Reference Range Interpretation Comments Monocytes (test code = Monocytes) 8.8 2.0-12.0 [place] [address]-07-27 09:07:00 Test Item Value Reference Range Interpretation Comments Neutrophils # (test code = Neutrophils 5.3 1.5-8.1 #) [place] [address]-07-27 09:07:00 Test Item Value Reference Range Interpretation Comments Lymphocytes # (test code = Lymphocytes 1.2 1.0-5.5 #) [place] [address]-07-27 09:07:00 Test Item Value Reference Range Interpretation Comments Monocytes # (test code 0.6 See_Comment [Aut omated message] The = Monocytes #) system which generated this result tra nsmitted reference range : <=0.8. The reference r hugo was not used to int erpret this result as normal/abnormal . [place] [address]-07-27 09:07:00 Test Item Value Reference Range Interpretation Comments Microcyte (test code = 1+ *ABN*(06/15/22 Microcyte) 4:07 AM) [place] 480482-07-27 09:07:00 Test Item Value Reference Range Interpretation Comments Glucose Lvl (test code = Glucose Lvl) 108 70-99 [place] 480482-07-27 09:07:00 Test Item Value Reference Range Interpretation Comments BUN (test code = BUN) 29 06-10 [place] 480482-07-27 09:07:00 Test Item Value Reference Range Interpretation Comments Creatinine Lvl (test code = Creatinine 0.94 0.50-1.40 Lvl) [place] 480482-07-27 09:07:00 Test Item Value Reference Range Interpretation Comments Sodium Lvl (test code = Sodium Lvl) 131 135-145 [place] 480482-07-27 09:07:00 Test Item Value Reference Range Interpretation Comments Potassium Lvl (test code = Potassium 3.2 3.5-5.1 Lvl) [place] 480482-07-27 09:07:00 Test Item Value Reference Range Interpretation Comments Chloride Lvl (test code = Chloride Lvl) 93 95-109 [place] 480482-07-27 09:07:00 Test Item Value Reference Range Interpretation Comments CO2 (test code = CO2) 31 24-32 [facility] [id number] 09:07:00 Test Item Value Reference Range Interpretation Comments Calcium Lvl (test code = Calcium Lvl) 8.0 8.5-10.5 [facility] [id number] 09:07:00 Test Item Value Reference Range Interpretation Comments Total Protein (test code = Total 5.7 6.4-8.4 Protein) [facility] [id number] 09:07:00 Test Item Value Reference Range Interpretation Comments Albumin Lvl (test code = Albumin Lvl) 2.6 3.5-5.0 [facility] [id number] 09:07:00 Test Item Value Reference Range Interpretation Comments ALT (test code = ALT) 18 See_Comment [Auto mated message] The system which ge nerated this result transmit lavon reference range : <=65. The reference range was not used to interpr et this result as dionne l/abnormal. [facility] [id number] 09:07:00 Test Item Value Reference Range Interpretation Comments AST (test code = AST) 28 See_Comment [Auto mated message] The system which ge nerated this result transmit lavon reference range : <=37. The reference range was not used to interpr et this result as dionne l/abnormal. [facility] [id number] 09:07:00 Test Item Value Reference Range Interpretation Comments Alk Phos (test code = Alk Phos) 44 39-136 [facility] [employer] [id number] 09:07:00 Test Item Value Reference Range Interpretation Comments Bili Total (test code = Bili Total) 1.1 0.2-1.3 [facility] [employer] [id number] 09:07:00 Test Item Value Reference Range Interpretation Comments AGAP (test code = AGAP) 10.2 10.0-20.0 [facility] [employer] [id number] 09:07:00 Test Item Value Reference Range Interpretation Comments B/C Ratio (test code = B/C Ratio) 31 1 6-25 [facility] [id number] 09:07:00 Test Item Value Reference Range Interpretation Comments Globulin (test code = Globulin) 3.1 2.7-4.2 [facility]2022-07-27 09:07:00 Test Item Value Reference Range Interpretation Comments A/G Ratio (test code = A/G Ratio) 0.8 1 0.7-1.6 [place] 480482-07-27 09:07:00 Test Item Value Reference Range Interpretation Comments eGFR (test code = eGFR) 59 [place] 325412-07-27 09:07:00 Test Item Value Reference Range Interpretation Comments WBC (test code = WBC) 7.2 3.7-10.4 [place] 325412-07-27 09:07:00 Test Item Value Reference Range Interpretation Comments RBC (test code = RBC) 3.06 4.20-5.40 [place] 325412-07-27 09:07:00 Test Item Value Reference Range Interpretation Comments Hgb (test code = Hgb) 7.4 12.0-16.0 [place] 325412-07-27 09:07:00 Test Item Value Reference Range Interpretation Comments Hct (test code = Hct) 22.5 36.0-48.0 [place] 325412-07-27 09:07:00 Test Item Value Reference Range Interpretation Comments MCV (test code = MCV) 73.6 80.0-98.0 [place] 325412-07-27 09:07:00 Test Item Value Reference Range Interpretation Comments MCH (test code = MCH) 24.2 pg 27.0-31.0 [place] 325412-07-27 09:07:00 Test Item Value Reference Range Interpretation Comments MCHC (test code = MCHC) 32.9 32.0-36.0 [place] 325412-07-27 09:07:00 Test Item Value Reference Range Interpretation Comments RDW (test code = RDW) 20.8 11.5-14.5 [place] 325412-07-27 09:07:00 Test Item Value Reference Range Interpretation Comments Platelet (test code = Platelet) 286 133-450 [place] 325412-07-27 09:07:00 Test Item Value Reference Range Interpretation Comments MPV (test code = MPV) 7.4 7.4-10.4 [place] 325412-07-27 09:07:00 Test Item Value Reference Range Interpretation Comments Segs (test code = Segs) 73.8 45.0-75.0 [place] [address]-07-27 09:07:00 Test Item Value Reference Range Interpretation Comments Lymphocytes (test code = Lymphocytes) 17.2 20.0-40.0 [place] [address]-07-27 09:07:00 Test Item Value Reference Range Interpretation Comments Monocytes (test code = Monocytes) 8.8 2.0-12.0 [place] [address]-07-27 09:07:00 Test Item Value Reference Range Interpretation Comments Neutrophils # (test code = Neutrophils 5.3 1.5-8.1 #) [place] 325412-07-27 09:07:00 Test Item Value Reference Range Interpretation Comments Lymphocytes # (test code = Lymphocytes 1.2 1.0-5.5 #) [place] [address]-07-27 09:07:00 Test Item Value Reference Range Interpretation Comments Monocytes # (test code 0.6 See_Comment [Aut omated message] The = Monocytes #) system which generated this result tra nsmitted reference range : <=0.8. The reference r hugo was not used to int erpret this result as normal/abnormal . [place] 325412-07-27 09:07:00 Test Item Value Reference Range Interpretation Comments Microcyte (test code = 1+ *ABN*(06/15/22 Microcyte) 4:07 AM) [place] 480482-07-27 09:07:00 Test Item Value Reference Range Interpretation Comments Glucose Lvl (test code = Glucose Lvl) 108 70-99 [place] 480482-07-27 09:07:00 Test Item Value Reference Range Interpretation Comments BUN (test code = BUN) 29 -22 [place] 480482-07-27 09:07:00 Test Item Value Reference Range Interpretation Comments Creatinine Lvl (test code = Creatinine 0.94 0.50-1.40 Lvl) [place] 480482-07-27 09:07:00 Test Item Value Reference Range Interpretation Comments Sodium Lvl (test code = Sodium Lvl) 131 135-145 [place] 480482-07-27 09:07:00 Test Item Value Reference Range Interpretation Comments Potassium Lvl (test code = Potassium 3.2 3.5-5.1 Lvl) [place] 480482-07-27 09:07:00 Test Item Value Reference Range Interpretation Comments Chloride Lvl (test code = Chloride Lvl) 93 95-109 [place] 480482-07-27 09:07:00 Test Item Value Reference Range Interpretation Comments CO2 (test code = CO2) 31 24-32 [place] 480482-07-27 09:07:00 Test Item Value Reference Range Interpretation Comments Calcium Lvl (test code = Calcium Lvl) 8.0 8.5-10.5 [facility] [id number] 09:07:00 Test Item Value Reference Range Interpretation Comments Total Protein (test code = Total 5.7 6.4-8.4 Protein) [place] 480482-07-27 09:07:00 Test Item Value Reference Range Interpretation Comments Albumin Lvl (test code = Albumin Lvl) 2.6 3.5-5.0 [facility] [id number] 09:07:00 Test Item Value Reference Range Interpretation Comments ALT (test code = ALT) 18 See_Comment [Auto mated message] The system which ge nerated this result transmit lavon reference range : <=65. The reference range was not used to interpr et this result as dionne l/abnormal. [facility] [id number] 09:07:00 Test Item Value Reference Range Interpretation Comments AST (test code = AST) 28 See_Comment [Auto mated message] The system which ge nerated this result transmit lavon reference range : <=37. The reference range was not used to interpr et this result as dionne l/abnormal. [facility] [id number] 09:07:00 Test Item Value Reference Range Interpretation Comments Alk Phos (test code = Alk Phos) 44 39-136 [facility] [id number] 09:07:00 Test Item Value Reference Range Interpretation Comments Bili Total (test code = Bili Total) 1.1 0.2-1.3 [place] 480482-07-27 09:07:00 Test Item Value Reference Range Interpretation Comments AGAP (test code = AGAP) 10.2 10.0-20.0 [facility] [id number] 09:07:00 Test Item Value Reference Range Interpretation Comments B/C Ratio (test code = B/C Ratio) 31 1 6-25 [place] 480482-07-27 09:07:00 Test Item Value Reference Range Interpretation Comments Globulin (test code = Globulin) 3.1 2.7-4.2 [place] 480482-07-27 09:07:00 Test Item Value Reference Range Interpretation Comments A/G Ratio (test code = A/G Ratio) 0.8 1 0.7-1.6 [place] 480482-07-27 09:07:00 Test Item Value Reference Range Interpretation Comments eGFR (test code = eGFR) 59 [place] 325412-07-27 09:07:00 Test Item Value Reference Range Interpretation Comments WBC (test code = WBC) 7.2 3.7-10.4 [place] 325412-07-27 09:07:00 Test Item Value Reference Range Interpretation Comments RBC (test code = RBC) 3.06 4.20-5.40 [place] 325412-07-27 09:07:00 Test Item Value Reference Range Interpretation Comments Hgb (test code = Hgb) 7.4 12.0-16.0 [place] [address]-07-27 09:07:00 Test Item Value Reference Range Interpretation Comments Hct (test code = Hct) 22.5 36.0-48.0 [place] [address]-07-27 09:07:00 Test Item Value Reference Range Interpretation Comments MCV (test code = MCV) 73.6 80.0-98.0 [place] 325412-07-27 09:07:00 Test Item Value Reference Range Interpretation Comments MCH (test code = MCH) 24.2 pg 27.0-31.0 [place] 325412-07-27 09:07:00 Test Item Value Reference Range Interpretation Comments MCHC (test code = MCHC) 32.9 32.0-36.0 [place] 325412-07-27 09:07:00 Test Item Value Reference Range Interpretation Comments RDW (test code = RDW) 20.8 11.5-14.5 [place] 325412-07-27 09:07:00 Test Item Value Reference Range Interpretation Comments Platelet (test code = Platelet) 286 133450 [facility] CampusCnhnuzdPYWHOLEDGV6664-40-00 09:07:00 Test Item Value Reference Range Interpretation Comments MPV (test code = MPV) 7.4 7.4-10.4 [place] 325412-07-27 09:07:00 Test Item Value Reference Range Interpretation Comments Segs (test code = Segs) 73.8 45.0-75.0 [place] 325412-07-27 09:07:00 Test Item Value Reference Range Interpretation Comments Lymphocytes (test code = Lymphocytes) 17.2 20.0-40.0 [place] 325412-07-27 09:07:00 Test Item Value Reference Range Interpretation Comments Monocytes (test code = Monocytes) 8.8 2.0-12.0 [place] 325412-07-27 09:07:00 Test Item Value Reference Range Interpretation Comments Neutrophils # (test code = Neutrophils 5.3 1.5-8.1 #) [place] 325412-07-27 09:07:00 Test Item Value Reference Range Interpretation Comments Lymphocytes # (test code = Lymphocytes 1.2 1.0-5.5 #) [place] 325412-07-27 09:07:00 Test Item Value Reference Range Interpretation Comments Monocytes # (test code 0.6 See_Comment [Aut omated message] The = Monocytes #) system which generated this result tra nsmitted reference range : <=0.8. The reference r hugo was not used to int erpret this result as normal/abnormal . [facility] [id number] 09:07:00 Test Item Value Reference Range Interpretation Comments Microcyte (test code = 1+ *ABN*(06/15/22 Microcyte) 4:07 AM) [place] 480482-07-27 09:07:00 Test Item Value Reference Range Interpretation Comments Glucose Lvl (test code = Glucose Lvl) 108 70-99 [place] 480482-07-27 09:07:00 Test Item Value Reference Range Interpretation Comments BUN (test code = BUN) 29 7-22 [place] 480482-07-27 09:07:00 Test Item Value Reference Range Interpretation Comments Creatinine Lvl (test code = Creatinine 0.94 0.50-1.40 Lvl) [place] 480482-07-27 09:07:00 Test Item Value Reference Range Interpretation Comments Sodium Lvl (test code = Sodium Lvl) 131 135-145 [place] 480482-07-27 09:07:00 Test Item Value Reference Range Interpretation Comments Potassium Lvl (test code = Potassium 3.2 3.5-5.1 Lvl) [place] [address]-07-27 09:07:00 Test Item Value Reference Range Interpretation Comments Chloride Lvl (test code = Chloride Lvl) 93 95-109 [place] [address]-07-27 09:07:00 Test Item Value Reference Range Interpretation Comments CO2 (test code = CO2) 31 24-32 [place] [address]-07-27 09:07:00 Test Item Value Reference Range Interpretation Comments Calcium Lvl (test code = Calcium Lvl) 8.0 8.5-10.5 [place] 480482-07-27 09:07:00 Test Item Value Reference Range Interpretation Comments Total Protein (test code = Total 5.7 6.4-8.4 Protein) [place] [address]-07-27 09:07:00 Test Item Value Reference Range Interpretation Comments Albumin Lvl (test code = Albumin Lvl) 2.6 3.5-5.0 [place] [address]-07-27 09:07:00 Test Item Value Reference Range Interpretation Comments ALT (test code = ALT) 18 See_Comment [Auto mated message] The system which ge nerated this result transmit lavon reference range : <=65. The reference range was not used to interpr et this result as dionne l/abnormal. [place] [address]-07-27 09:07:00 Test Item Value Reference Range Interpretation Comments AST (test code = AST) 28 See_Comment [Auto mated message] The system which ge nerated this result transmit lavon reference range : <=37. The reference range was not used to interpr et this result as dionne l/abnormal. [place] [address]-07-27 09:07:00 Test Item Value Reference Range Interpretation Comments Alk Phos (test code = Alk Phos) 44 39-136 [place] 480482-07-27 09:07:00 Test Item Value Reference Range Interpretation Comments Bili Total (test code = Bili Total) 1.1 0.2-1.3 [place] 480482-07-27 09:07:00 Test Item Value Reference Range Interpretation Comments AGAP (test code = AGAP) 10.2 10.0-20.0 [place] 480482-07-27 09:07:00 Test Item Value Reference Range Interpretation Comments B/C Ratio (test code = B/C Ratio) 31 1 6-25 [place] 480482-07-27 09:07:00 Test Item Value Reference Range Interpretation Comments Globulin (test code = Globulin) 3.1 2.7-4.2 [place] 480482-07-27 09:07:00 Test Item Value Reference Range Interpretation Comments A/G Ratio (test code = A/G Ratio) 0.8 1 0.7-1.6 [place] 480482-07-27 09:07:00 Test Item Value Reference Range Interpretation Comments eGFR (test code = eGFR) 59 [place] 325412-07-27 09:07:00 Test Item Value Reference Range Interpretation Comments WBC (test code = WBC) 7.2 3.7-10.4 [place] 325412-07-27 09:07:00 Test Item Value Reference Range Interpretation Comments RBC (test code = RBC) 3.06 4.20-5.40 [place] 325412-07-27 09:07:00 Test Item Value Reference Range Interpretation Comments Hgb (test code = Hgb) 7.4 12.0-16.0 [place] 325412-07-27 09:07:00 Test Item Value Reference Range Interpretation Comments Hct (test code = Hct) 22.5 36.0-48.0 [place] 325412-07-27 09:07:00 Test Item Value Reference Range Interpretation Comments MCV (test code = MCV) 73.6 80.0-98.0 [place] [address]-07-27 09:07:00 Test Item Value Reference Range Interpretation Comments MCH (test code = MCH) 24.2 pg 27.0-31.0 [place] 325412-07-27 09:07:00 Test Item Value Reference Range Interpretation Comments MCHC (test code = MCHC) 32.9 32.0-36.0 [facility] C[id number] 09:07:00 Test Item Value Reference Range Interpretation Comments RDW (test code = RDW) 20.8 11.5-14.5 [place] 325412-07-27 09:07:00 Test Item Value Reference Range Interpretation Comments Platelet (test code = Platelet) 286 133-450 [facility] CampusJzdgsgsZMOPYYNIOO1538-53-66 09:07:00 Test Item Value Reference Range Interpretation Comments MPV (test code = MPV) 7.4 7.4-10.4 [facility] CampusPjdkbbpZLADUHWBWP0674-04-52 09:07:00 Test Item Value Reference Range Interpretation Comments Segs (test code = Segs) 73.8 45.0-75.0 [place] 325412-07-27 09:07:00 Test Item Value Reference Range Interpretation Comments Lymphocytes (test code = Lymphocytes) 17.2 20.0-40.0 [facility] CampusGdcifnoXTOSNGLEKQ4187-31-72 09:07:00 Test Item Value Reference Range Interpretation Comments Monocytes (test code = Monocytes) 8.8 2.0-12.0 [facility] CampusKrskaolQTCDVJKQLG9553-52-19 09:07:00 Test Item Value Reference Range Interpretation Comments Neutrophils # (test code = Neutrophils 5.3 1.5-8.1 #) [facility] CampusQutxmqwKXKUXWYQBX6656-42-33 09:07:00 Test Item Value Reference Range Interpretation Comments Lymphocytes # (test code = Lymphocytes 1.2 1.0-5.5 #) [facility] CampusJrgdfyqHKMNSFRRWS4881-83-98 09:07:00 Test Item Value Reference Range Interpretation Comments Monocytes # (test code 0.6 See_Comment [Aut omated message] The = Monocytes #) system which generated this result tra nsmitted reference range : <=0.8. The reference r hugo was not used to int erpret this result as normal/abnormal . [facility] CampusJrjrejzWQQLUXEUZW8128-69-05 09:07:00 Test Item Value Reference Range Interpretation Comments Microcyte (test code = 1+ *ABN*(06/15/22 Microcyte) 4:07 AM) [facility]2022-07-27 09:07:00 Test Item Value Reference Range Interpretation Comments Glucose Lvl (test code = Glucose Lvl) 108 70-99 [place] 480482-07-27 09:07:00 Test Item Value Reference Range Interpretation Comments BUN (test code = BUN) 29 7-22 [place] 480482-07-27 09:07:00 Test Item Value Reference Range Interpretation Comments Creatinine Lvl (test code = Creatinine 0.94 0.50-1.40 Lvl) [place] 480482-07-27 09:07:00 Test Item Value Reference Range Interpretation Comments Sodium Lvl (test code = Sodium Lvl) 131 135-145 [place] 480482-07-27 09:07:00 Test Item Value Reference Range Interpretation Comments Potassium Lvl (test code = Potassium 3.2 3.5-5.1 Lvl) [place] 480482-07-27 09:07:00 Test Item Value Reference Range Interpretation Comments Chloride Lvl (test code = Chloride Lvl) 93 95-109 [place] 480482-07-27 09:07:00 Test Item Value Reference Range Interpretation Comments CO2 (test code = CO2) 31 24-32 [place] 480482-07-27 09:07:00 Test Item Value Reference Range Interpretation Comments Calcium Lvl (test code = Calcium Lvl) 8.0 8.5-10.5 [place] 480482-07-27 09:07:00 Test Item Value Reference Range Interpretation Comments Total Protein (test code = Total 5.7 6.4-8.4 Protein) [place] 480482-07-27 09:07:00 Test Item Value Reference Range Interpretation Comments Albumin Lvl (test code = Albumin Lvl) 2.6 3.5-5.0 [place] 480482-07-27 09:07:00 Test Item Value Reference Range Interpretation Comments ALT (test code = ALT) 18 See_Comment [Auto mated message] The system which ge nerated this result transmit lavon reference range : <=65. The reference range was not used to interpr et this result as dionne l/abnormal. [place] 480482-07-27 09:07:00 Test Item Value Reference Range Interpretation Comments AST (test code = AST) 28 See_Comment [Auto mated message] The system which ge nerated this result transmit lavon reference range : <=37. The reference range was not used to interpr et this result as dionne l/abnormal. [facility]2022-07-27 09:07:00 Test Item Value Reference Range Interpretation Comments Alk Phos (test code = Alk Phos) 44 39-136 [place] 480482-07-27 09:07:00 Test Item Value Reference Range Interpretation Comments Bili Total (test code = Bili Total) 1.1 0.2-1.3 [place] 480482-07-27 09:07:00 Test Item Value Reference Range Interpretation Comments AGAP (test code = AGAP) 10.2 10.0-20.0 [place] 480482-07-27 09:07:00 Test Item Value Reference Range Interpretation Comments B/C Ratio (test code = B/C Ratio) 31 1 6-25 [facility]2022-07-27 09:07:00 Test Item Value Reference Range Interpretation Comments Globulin (test code = Globulin) 3.1 2.7-4.2 [place] 480482-07-27 09:07:00 Test Item Value Reference Range Interpretation Comments A/G Ratio (test code = A/G Ratio) 0.8 1 0.7-1.6 [place] 480482-07-27 09:07:00 Test Item Value Reference Range Interpretation Comments eGFR (test code = eGFR) 59 [facility] CampusLyzojpoANVZCITJDI1722-40-36 09:07:00 Test Item Value Reference Range Interpretation Comments WBC (test code = WBC) 7.2 3.7-10.4 [facility] CampusBfbociiPSHWJATCQZ9641-04-77 09:07:00 Test Item Value Reference Range Interpretation Comments RBC (test code = RBC) 3.06 4.20-5.40 [place] 325412-07-27 09:07:00 Test Item Value Reference Range Interpretation Comments Hgb (test code = Hgb) 7.4 12.0-16.0 [place] 325412-07-27 09:07:00 Test Item Value Reference Range Interpretation Comments Hct (test code = Hct) 22.5 36.0-48.0 [place] 325412-07-27 09:07:00 Test Item Value Reference Range Interpretation Comments MCV (test code = MCV) 73.6 80.0-98.0 [place] 325412-07-27 09:07:00 Test Item Value Reference Range Interpretation Comments MCH (test code = MCH) 24.2 pg 27.0-31.0 [place] 325412-07-27 09:07:00 Test Item Value Reference Range Interpretation Comments MCHC (test code = MCHC) 32.9 32.0-36.0 [facility] CampusXnqpqdvIBQJYJRVYW9833-38-42 09:07:00 Test Item Value Reference Range Interpretation Comments RDW (test code = RDW) 20.8 11.5-14.5 [place] 325412-07-27 09:07:00 Test Item Value Reference Range Interpretation Comments Platelet (test code = Platelet) 286 133-450 [place] 325412-07-27 09:07:00 Test Item Value Reference Range Interpretation Comments MPV (test code = MPV) 7.4 7.4-10.4 [place] 325412-07-27 09:07:00 Test Item Value Reference Range Interpretation Comments Segs (test code = Segs) 73.8 45.0-75.0 [facility] CampusXrllhhnFNWUBYHMZO0564-50-34 09:07:00 Test Item Value Reference Range Interpretation Comments Lymphocytes (test code = Lymphocytes) 17.2 20.0-40.0 [place] 325412-07-27 09:07:00 Test Item Value Reference Range Interpretation Comments Monocytes (test code = Monocytes) 8.8 2.0-12.0 [facility] CampusJixyognKWQIFIVIDQ3767-96-32 09:07:00 Test Item Value Reference Range Interpretation Comments Neutrophils # (test code = Neutrophils 5.3 1.5-8.1 #) [facility] CampusRjctaygZYJEWFASOH8253-59-52 09:07:00 Test Item Value Reference Range Interpretation Comments Lymphocytes # (test code = Lymphocytes 1.2 1.0-5.5 #) [place] 325412-07-27 09:07:00 Test Item Value Reference Range Interpretation Comments Monocytes # (test code 0.6 See_Comment [Aut omated message] The = Monocytes #) system which generated this result tra nsmitted reference range : <=0.8. The reference r hugo was not used to int erpret this result as normal/abnormal . [place] 325412-07-27 09:07:00 Test Item Value Reference Range Interpretation Comments Microcyte (test code = 1+ *ABN*(06/15/22 Microcyte) 4:07 AM) [place] 480482-07-27 09:07:00 Test Item Value Reference Range Interpretation Comments Glucose Lvl (test code = Glucose Lvl) 108 70-99 [place] 480482-07-27 09:07:00 Test Item Value Reference Range Interpretation Comments BUN (test code = BUN) 29 -22 [place] 480482-07-27 09:07:00 Test Item Value Reference Range Interpretation Comments Creatinine Lvl (test code = Creatinine 0.94 0.50-1.40 Lvl) [place] 480482-07-27 09:07:00 Test Item Value Reference Range Interpretation Comments Sodium Lvl (test code = Sodium Lvl) 131 135-145 [place] 480482-07-27 09:07:00 Test Item Value Reference Range Interpretation Comments Potassium Lvl (test code = Potassium 3.2 3.5-5.1 Lvl) [place] 480482-07-27 09:07:00 Test Item Value Reference Range Interpretation Comments Chloride Lvl (test code = Chloride Lvl) 93 95-109 [place] 480482-07-27 09:07:00 Test Item Value Reference Range Interpretation Comments CO2 (test code = CO2) 31 24-32 [place] 480482-07-27 09:07:00 Test Item Value Reference Range Interpretation Comments Calcium Lvl (test code = Calcium Lvl) 8.0 8.5-10.5 [place] 480482-07-27 09:07:00 Test Item Value Reference Range Interpretation Comments Total Protein (test code = Total 5.7 6.4-8.4 Protein) [place] 480482-07-27 09:07:00 Test Item Value Reference Range Interpretation Comments Albumin Lvl (test code = Albumin Lvl) 2.6 3.5-5.0 [place] 480482-07-27 09:07:00 Test Item Value Reference Range Interpretation Comments ALT (test code = ALT) 18 See_Comment [Auto mated message] The system which ge nerated this result transmit lavon reference range : <=65. The reference range was not used to interpr et this result as dionne l/abnormal. [place] 480482-07-27 09:07:00 Test Item Value Reference Range Interpretation Comments AST (test code = AST) 28 See_Comment [Auto mated message] The system which ge nerated this result transmit lavon reference range : <=37. The reference range was not used to interpr et this result as dionne l/abnormal. [place] 480482-07-27 09:07:00 Test Item Value Reference Range Interpretation Comments Alk Phos (test code = Alk Phos) 44 39-136 [place] 480482-07-27 09:07:00 Test Item Value Reference Range Interpretation Comments Bili Total (test code = Bili Total) 1.1 0.2-1.3 [place] 480482-07-27 09:07:00 Test Item Value Reference Range Interpretation Comments AGAP (test code = AGAP) 10.2 10.0-20.0 [place] 480482-07-27 09:07:00 Test Item Value Reference Range Interpretation Comments B/C Ratio (test code = B/C Ratio) 31 1 6-25 [place] 480482-07-27 09:07:00 Test Item Value Reference Range Interpretation Comments Globulin (test code = Globulin) 3.1 2.7-4.2 [place] 480482-07-27 09:07:00 Test Item Value Reference Range Interpretation Comments A/G Ratio (test code = A/G Ratio) 0.8 1 0.7-1.6 [place] 480482-07-27 09:07:00 Test Item Value Reference Range Interpretation Comments eGFR (test code = eGFR) 59 [place] 325412-07-27 09:07:00 Test Item Value Reference Range Interpretation Comments WBC (test code = WBC) 7.2 3.7-10.4 [place] 325412-07-27 09:07:00 Test Item Value Reference Range Interpretation Comments RBC (test code = RBC) 3.06 4.20-5.40 [place] 325412-07-27 09:07:00 Test Item Value Reference Range Interpretation Comments Hgb (test code = Hgb) 7.4 12.0-16.0 [place] 325412-07-27 09:07:00 Test Item Value Reference Range Interpretation Comments Hct (test code = Hct) 22.5 36.0-48.0 [place] 325412-07-27 09:07:00 Test Item Value Reference Range Interpretation Comments MCV (test code = MCV) 73.6 80.0-98.0 [place] 325412-07-27 09:07:00 Test Item Value Reference Range Interpretation Comments MCH (test code = MCH) 24.2 pg 27.0-31.0 [facility] CampusOrnxngfTKMTUDXMWL9729-93-67 09:07:00 Test Item Value Reference Range Interpretation Comments MCHC (test code = MCHC) 32.9 32.0-36.0 [place] 325412-07-27 09:07:00 Test Item Value Reference Range Interpretation Comments RDW (test code = RDW) 20.8 11.5-14.5 [place] 325412-07-27 09:07:00 Test Item Value Reference Range Interpretation Comments Platelet (test code = Platelet) 286 133-450 [facility] CampusYrjkwpqCVBHYPHQNV7509-03-26 09:07:00 Test Item Value Reference Range Interpretation Comments MPV (test code = MPV) 7.4 7.4-10.4 [facility] CampusFidxlmkBBLTFZCIOT0590-97-71 09:07:00 Test Item Value Reference Range Interpretation Comments Segs (test code = Segs) 73.8 45.0-75.0 [place] 325412-07-27 09:07:00 Test Item Value Reference Range Interpretation Comments Lymphocytes (test code = Lymphocytes) 17.2 20.0-40.0 [place] 325412-07-27 09:07:00 Test Item Value Reference Range Interpretation Comments Monocytes (test code = Monocytes) 8.8 2.0-12.0 [facility] CampusOxorixjFFJIVIPIYN6574-84-86 09:07:00 Test Item Value Reference Range Interpretation Comments Neutrophils # (test code = Neutrophils 5.3 1.5-8.1 #) [facility] CampusLqqpfvkSEHIYTSKLF4320-10-43 09:07:00 Test Item Value Reference Range Interpretation Comments Lymphocytes # (test code = Lymphocytes 1.2 1.0-5.5 #) [facility] CampusGpjfkmfIDCJQAPADD5050-54-66 09:07:00 Test Item Value Reference Range Interpretation Comments Monocytes # (test code 0.6 See_Comment [Aut omated message] The = Monocytes #) system which generated this result tra nsmitted reference range : <=0.8. The reference r hugo was not used to int erpret this result as normal/abnormal . [facility] CampusDydhebdBDRGUXUTKM9619-86-04 09:07:00 Test Item Value Reference Range Interpretation Comments Microcyte (test code = 1+ *ABN*(06/15/22 Microcyte) 4:07 AM) [place] 480482-07-27 09:07:00 Test Item Value Reference Range Interpretation Comments Glucose Lvl (test code = Glucose Lvl) 108 70-99 [place] 480482-07-27 09:07:00 Test Item Value Reference Range Interpretation Comments BUN (test code = BUN) 29 - [place] 480482-07-27 09:07:00 Test Item Value Reference Range Interpretation Comments Creatinine Lvl (test code = Creatinine 0.94 0.50-1.40 Lvl) [place] 480482-07-27 09:07:00 Test Item Value Reference Range Interpretation Comments Sodium Lvl (test code = Sodium Lvl) 131 135-145 [place] 480482-07-27 09:07:00 Test Item Value Reference Range Interpretation Comments Potassium Lvl (test code = Potassium 3.2 3.5-5.1 Lvl) [place] 480482-07-27 09:07:00 Test Item Value Reference Range Interpretation Comments Chloride Lvl (test code = Chloride Lvl) 93 95-109 [place] 480482-07-27 09:07:00 Test Item Value Reference Range Interpretation Comments CO2 (test code = CO2) 31 24-32 [place] 480482-07-27 09:07:00 Test Item Value Reference Range Interpretation Comments Calcium Lvl (test code = Calcium Lvl) 8.0 8.5-10.5 [place] 480482-07-27 09:07:00 Test Item Value Reference Range Interpretation Comments Total Protein (test code = Total 5.7 6.4-8.4 Protein) [place] 480482-07-27 09:07:00 Test Item Value Reference Range Interpretation Comments Albumin Lvl (test code = Albumin Lvl) 2.6 3.5-5.0 [id number]:07:00 Test Item Value Reference Range Interpretation Comments ALT (test code = ALT) 18 See_Comment [Auto mated message] The system which ge nerated this result transmit lavon reference range : <=65. The reference range was not used to interpr et this result as dionne l/abnormal. [facility] [employer] [id number] 09:07:00 Test Item Value Reference Range Interpretation Comments AST (test code = AST) 28 See_Comment [Auto mated message] The system which ge nerated this result transmit lavon reference range : <=37. The reference range was not used to interpr et this result as dionne l/abnormal. [facility] [employer] [id number] 09:07:00 Test Item Value Reference Range Interpretation Comments Alk Phos (test code = Alk Phos) 44 39-136 [facility] [employer] [id number] 09:07:00 Test Item Value Reference Range Interpretation Comments Bili Total (test code = Bili Total) 1.1 0.2-1.3 [facility] [employer] [id number] 09:07:00 Test Item Value Reference Range Interpretation Comments AGAP (test code = AGAP) 10.2 10.0-20.0 [facility] [employer] [id number] 09:07:00 Test Item Value Reference Range Interpretation Comments B/C Ratio (test code = B/C Ratio) 31 1 6-25 [facility] [employer] [id number] 09:07:00 Test Item Value Reference Range Interpretation Comments Globulin (test code = Globulin) 3.1 2.7-4.2 [facility] [employer] [id number] 09:07:00 Test Item Value Reference Range Interpretation Comments A/G Ratio (test code = A/G Ratio) 0.8 1 0.7-1.6 [facility] [employer] [id number] 09:07:00 Test Item Value Reference Range Interpretation Comments eGFR (test code = eGFR) 59 [facility] YbkixruLWPKHWJVZR7651-28-29 09:07:00 Test Item Value Reference Range Interpretation Comments WBC (test code = WBC) 7.2 3.7-10.4 [facility] [id number] 09:07:00 Test Item Value Reference Range Interpretation Comments RBC (test code = RBC) 3.06 4.20-5.40 [facility] CampusVhbsfkfBENLSIZVPJ2769-32-26 09:07:00 Test Item Value Reference Range Interpretation Comments Hgb (test code = Hgb) 7.4 12.0-16.0 [facility] CampusFvehmufOGKNQZOXVW5300-10-94 09:07:00 Test Item Value Reference Range Interpretation Comments Hct (test code = Hct) 22.5 36.0-48.0 [facility] CampusDjgugsjWOXFKKCCSQ3601-09-94 09:07:00 Test Item Value Reference Range Interpretation Comments MCV (test code = MCV) 73.6 80.0-98.0 [facility] CampusNiiuvoqFRLPRJUKDW5430-28-23 09:07:00 Test Item Value Reference Range Interpretation Comments MCH (test code = MCH) 24.2 pg 27.0-31.0 [facility] CampusIkmwdukQKHGOFMMCD9082-98-88 09:07:00 Test Item Value Reference Range Interpretation Comments MCHC (test code = MCHC) 32.9 32.0-36.0 [facility] CampusWvradumDNINMERGSC9408-26-56 09:07:00 Test Item Value Reference Range Interpretation Comments RDW (test code = RDW) 20.8 11.5-14.5 [facility] CampusNmjppcdOPPZSPSSFL1585-61-94 09:07:00 Test Item Value Reference Range Interpretation Comments Platelet (test code = Platelet) 286 133-450 [facility] CampusPurskriQFZHETAXUG6907-89-76 09:07:00 Test Item Value Reference Range Interpretation Comments MPV (test code = MPV) 7.4 7.4-10.4 [facility] CampusJyimmpkRDGJGLMAIO5215-38-78 09:07:00 Test Item Value Reference Range Interpretation Comments Segs (test code = Segs) 73.8 45.0-75.0 [facility] CampusImilqjsMYRFPAUUQW4941-93-81 09:07:00 Test Item Value Reference Range Interpretation Comments Lymphocytes (test code = Lymphocytes) 17.2 20.0-40.0 [place] 325412-07-27 09:07:00 Test Item Value Reference Range Interpretation Comments Monocytes (test code = Monocytes) 8.8 2.0-12.0 [place] 325412-07-27 09:07:00 Test Item Value Reference Range Interpretation Comments Neutrophils # (test code = Neutrophils 5.3 1.5-8.1 #) [place] 325412-07-27 09:07:00 Test Item Value Reference Range Interpretation Comments Lymphocytes # (test code = Lymphocytes 1.2 1.0-5.5 #) [place] 325412-07-27 09:07:00 Test Item Value Reference Range Interpretation Comments Monocytes # (test code 0.6 See_Comment [Aut omated message] The = Monocytes #) system which generated this result tra nsmitted reference range : <=0.8. The reference r hugo was not used to int erpret this result as normal/abnormal . [place] 325412-07-27 09:07:00 Test Item Value Reference Range Interpretation Comments Microcyte (test code = 1+ *ABN*(06/15/22 Microcyte) 4:07 AM) [place] 480482-07-27 09:07:00 Test Item Value Reference Range Interpretation Comments Glucose Lvl (test code = Glucose Lvl) 108 70-99 [place] 480482-07-27 09:07:00 Test Item Value Reference Range Interpretation Comments BUN (test code = BUN) 29 06-10 [place] 480482-07-27 09:07:00 Test Item Value Reference Range Interpretation Comments Creatinine Lvl (test code = Creatinine 0.94 0.50-1.40 Lvl) [place] 480482-07-27 09:07:00 Test Item Value Reference Range Interpretation Comments Sodium Lvl (test code = Sodium Lvl) 131 135-145 [place] 480482-07-27 09:07:00 Test Item Value Reference Range Interpretation Comments Potassium Lvl (test code = Potassium 3.2 3.5-5.1 Lvl) [place] 480482-07-27 09:07:00 Test Item Value Reference Range Interpretation Comments Chloride Lvl (test code = Chloride Lvl) 93 95-109 [place] 480482-07-27 09:07:00 Test Item Value Reference Range Interpretation Comments CO2 (test code = CO2) 31 24-32 [place] 480482-07-27 09:07:00 Test Item Value Reference Range Interpretation Comments Calcium Lvl (test code = Calcium Lvl) 8.0 8.5-10.5 [place] 480482-07-27 09:07:00 Test Item Value Reference Range Interpretation Comments Total Protein (test code = Total 5.7 6.4-8.4 Protein) [facility] [id number] 09:07:00 Test Item Value Reference Range Interpretation Comments Albumin Lvl (test code = Albumin Lvl) 2.6 3.5-5.0 [facility] [id number] 09:07:00 Test Item Value Reference Range Interpretation Comments ALT (test code = ALT) 18 See_Comment [Auto mated message] The system which ge nerated this result transmit lavon reference range : <=65. The reference range was not used to interpr et this result as dionne l/abnormal. [facility] [employer] [id number] 09:07:00 Test Item Value Reference Range Interpretation Comments AST (test code = AST) 28 See_Comment [Auto mated message] The system which ge nerated this result transmit lavon reference range : <=37. The reference range was not used to interpr et this result as dionne l/abnormal. [facility] [id number] 09:07:00 Test Item Value Reference Range Interpretation Comments Alk Phos (test code = Alk Phos) 44 39-136 [facility] [facility] [id number] 09:07:00 Test Item Value Reference Range Interpretation Comments Bili Total (test code = Bili Total) 1.1 0.2-1.3 [facility] [id number] 09:07:00 Test Item Value Reference Range Interpretation Comments AGAP (test code = AGAP) 10.2 10.0-20.0 [facility] [id number] 09:07:00 Test Item Value Reference Range Interpretation Comments B/C Ratio (test code = B/C Ratio) 31 1 6-25 [facility] [id number] 09:07:00 Test Item Value Reference Range Interpretation Comments Globulin (test code = Globulin) 3.1 2.7-4.2 [facility] [id number] 09:07:00 Test Item Value Reference Range Interpretation Comments A/G Ratio (test code = A/G Ratio) 0.8 1 0.7-1.6 [facility] [id number] 09:07:00 Test Item Value Reference Range Interpretation Comments eGFR (test code = eGFR) 59 [facility] CampusXjradkgJIFEDCCTAV2243-85-49 09:07:00 Test Item Value Reference Range Interpretation Comments WBC (test code = WBC) 7.2 3.7-10.4 [facility] CampusUxfbtklAVHIYIPWUW7955-87-43 09:07:00 Test Item Value Reference Range Interpretation Comments RBC (test code = RBC) 3.06 4.20-5.40 [facility] CampusWuzbbbkLCVXHOJXIR8120-46-97 09:07:00 Test Item Value Reference Range Interpretation Comments Hgb (test code = Hgb) 7.4 12.0-16.0 [facility] CampusBkqzejgAGBDJORPWZ1931-29-48 09:07:00 Test Item Value Reference Range Interpretation Comments Hct (test code = Hct) 22.5 36.0-48.0 [facility] CampusRubmetbZJZGRRLYMT8380-09-94 09:07:00 Test Item Value Reference Range Interpretation Comments MCV (test code = MCV) 73.6 80.0-98.0 [facility] CampusUeyswvsVCVDOQOCEQ9603-63-16 09:07:00 Test Item Value Reference Range Interpretation Comments MCH (test code = MCH) 24.2 pg 27.0-31.0 [facility] CampusMujrjytZGFMMKGYNQ2034-36-19 09:07:00 Test Item Value Reference Range Interpretation Comments MCHC (test code = MCHC) 32.9 32.0-36.0 [facility] CampusVjvrgohDTZUZQSDNM9419-57-93 09:07:00 Test Item Value Reference Range Interpretation Comments RDW (test code = RDW) 20.8 11.5-14.5 [facility] CampusGhmssurMFMRHFVUQS8534-87-82 09:07:00 Test Item Value Reference Range Interpretation Comments Platelet (test code = Platelet) 286 133-450 [facility] CampusXidetrrHOAKTILYTJ9505-03-11 09:07:00 Test Item Value Reference Range Interpretation Comments MPV (test code = MPV) 7.4 7.4-10.4 [facility] CampusVshjwiySTDSIOQKHJ6436-20-45 09:07:00 Test Item Value Reference Range Interpretation Comments Segs (test code = Segs) 73.8 45.0-75.0 [facility] CampusAfvngecFYEFBEDVUN0695-21-24 09:07:00 Test Item Value Reference Range Interpretation Comments Lymphocytes (test code = Lymphocytes) 17.2 20.0-40.0 [facility] CampusFkieclsGLQLSDWFBD9954-55-29 09:07:00 Test Item Value Reference Range Interpretation Comments Monocytes (test code = Monocytes) 8.8 2.0-12.0 [place] 325412-07-27 09:07:00 Test Item Value Reference Range Interpretation Comments Neutrophils # (test code = Neutrophils 5.3 1.5-8.1 #) [place] [address]-07-27 09:07:00 Test Item Value Reference Range Interpretation Comments Lymphocytes # (test code = Lymphocytes 1.2 1.0-5.5 #) [place] 325412-07-27 09:07:00 Test Item Value Reference Range Interpretation Comments Monocytes # (test code 0.6 See_Comment [Aut omated message] The = Monocytes #) system which generated this result tra nsmitted reference range : <=0.8. The reference r hugo was not used to int erpret this result as normal/abnormal . [place] 325412-07-27 09:07:00 Test Item Value Reference Range Interpretation Comments Microcyte (test code = 1+ *ABN*(06/15/22 Microcyte) 4:07 AM) [place] [address]-07-27 09:07:00 Test Item Value Reference Range Interpretation Comments Glucose Lvl (test code = Glucose Lvl) 108 70-99 [place] 480482-07-27 09:07:00 Test Item Value Reference Range Interpretation Comments BUN (test code = BUN) 29 06-10 [place] 480482-07-27 09:07:00 Test Item Value Reference Range Interpretation Comments Creatinine Lvl (test code = Creatinine 0.94 0.50-1.40 Lvl) [place] 480482-07-27 09:07:00 Test Item Value Reference Range Interpretation Comments Sodium Lvl (test code = Sodium Lvl) 131 135-145 [place] 480482-07-27 09:07:00 Test Item Value Reference Range Interpretation Comments Potassium Lvl (test code = Potassium 3.2 3.5-5.1 Lvl) [place] 480482-07-27 09:07:00 Test Item Value Reference Range Interpretation Comments Chloride Lvl (test code = Chloride Lvl) 93 95-109 [place] 480482-07-27 09:07:00 Test Item Value Reference Range Interpretation Comments CO2 (test code = CO2) 31 24-32 [facility] [id number] 09:07:00 Test Item Value Reference Range Interpretation Comments Calcium Lvl (test code = Calcium Lvl) 8.0 8.5-10.5 [facility] [id number] 09:07:00 Test Item Value Reference Range Interpretation Comments Total Protein (test code = Total 5.7 6.4-8.4 Protein) [facility] [id number] 09:07:00 Test Item Value Reference Range Interpretation Comments Albumin Lvl (test code = Albumin Lvl) 2.6 3.5-5.0 [facility] [employer] [id number] 09:07:00 Test Item Value Reference Range Interpretation Comments ALT (test code = ALT) 18 See_Comment [Auto mated message] The system which ge nerated this result transmit lavon reference range : <=65. The reference range was not used to interpr et this result as dionne l/abnormal. [facility] [employer] [id number] 09:07:00 Test Item Value Reference Range Interpretation Comments AST (test code = AST) 28 See_Comment [Auto mated message] The system which ge nerated this result transmit lavon reference range : <=37. The reference range was not used to interpr et this result as dionne l/abnormal. [facility] [employer] [id number] 09:07:00 Test Item Value Reference Range Interpretation Comments Alk Phos (test code = Alk Phos) 44 39-136 [facility] [employer] [id number] 09:07:00 Test Item Value Reference Range Interpretation Comments Bili Total (test code = Bili Total) 1.1 0.2-1.3 [facility] [employer] [id number] 09:07:00 Test Item Value Reference Range Interpretation Comments AGAP (test code = AGAP) 10.2 10.0-20.0 [facility] [employer] [id number] 09:07:00 Test Item Value Reference Range Interpretation Comments B/C Ratio (test code = B/C Ratio) 31 1 6-25 [facility] [employer] [id number] 09:07:00 Test Item Value Reference Range Interpretation Comments Globulin (test code = Globulin) 3.1 2.7-4.2 [facility]2022-07-27 09:07:00 Test Item Value Reference Range Interpretation Comments A/G Ratio (test code = A/G Ratio) 0.8 1 0.7-1.6 [facility]2022-07-27 09:07:00 Test Item Value Reference Range Interpretation Comments eGFR (test code = eGFR) 59 [place] 325412-07-27 09:07:00 Test Item Value Reference Range Interpretation Comments WBC (test code = WBC) 7.2 3.7-10.4 [place] 325412-07-27 09:07:00 Test Item Value Reference Range Interpretation Comments RBC (test code = RBC) 3.06 4.20-5.40 [place] 325412-07-27 09:07:00 Test Item Value Reference Range Interpretation Comments Hgb (test code = Hgb) 7.4 12.0-16.0 [place] 325412-07-27 09:07:00 Test Item Value Reference Range Interpretation Comments Hct (test code = Hct) 22.5 36.0-48.0 [place] 325412-07-27 09:07:00 Test Item Value Reference Range Interpretation Comments MCV (test code = MCV) 73.6 80.0-98.0 [place] 325412-07-27 09:07:00 Test Item Value Reference Range Interpretation Comments MCH (test code = MCH) 24.2 pg 27.0-31.0 [facility] [id number] 09:07:00 Test Item Value Reference Range Interpretation Comments MCHC (test code = MCHC) 32.9 32.0-36.0 [facility] CampusBtmgsdcJLRQBENLQM7788-97-50 09:07:00 Test Item Value Reference Range Interpretation Comments RDW (test code = RDW) 20.8 11.5-14.5 [place] 325412-07-27 09:07:00 Test Item Value Reference Range Interpretation Comments Platelet (test code = Platelet) 286 133-450 [place] 325412-07-27 09:07:00 Test Item Value Reference Range Interpretation Comments MPV (test code = MPV) 7.4 7.4-10.4 [place] 325412-07-27 09:07:00 Test Item Value Reference Range Interpretation Comments Segs (test code = Segs) 73.8 45.0-75.0 [place] 325412-07-27 09:07:00 Test Item Value Reference Range Interpretation Comments Lymphocytes (test code = Lymphocytes) 17.2 20.0-40.0 [place] 325412-07-27 09:07:00 Test Item Value Reference Range Interpretation Comments Monocytes (test code = Monocytes) 8.8 2.0-12.0 [place] [address]-07-27 09:07:00 Test Item Value Reference Range Interpretation Comments Neutrophils # (test code = Neutrophils 5.3 1.5-8.1 #) [place] 325412-07-27 09:07:00 Test Item Value Reference Range Interpretation Comments Lymphocytes # (test code = Lymphocytes 1.2 1.0-5.5 #) [place] 325412-07-27 09:07:00 Test Item Value Reference Range Interpretation Comments Monocytes # (test code 0.6 See_Comment [Aut omated message] The = Monocytes #) system which generated this result tra nsmitted reference range : <=0.8. The reference r hugo was not used to int erpret this result as normal/abnormal . [place] 325412-07-27 09:07:00 Test Item Value Reference Range Interpretation Comments Microcyte (test code = 1+ *ABN*(06/15/22 Microcyte) 4:07 AM) [place] 480482-07-27 09:07:00 Test Item Value Reference Range Interpretation Comments Glucose Lvl (test code = Glucose Lvl) 108 70-99 [place] 480482-07-27 09:07:00 Test Item Value Reference Range Interpretation Comments BUN (test code = BUN) 29 - [place] 480482-07-27 09:07:00 Test Item Value Reference Range Interpretation Comments Creatinine Lvl (test code = Creatinine 0.94 0.50-1.40 Lvl) [place] 480482-07-27 09:07:00 Test Item Value Reference Range Interpretation Comments Sodium Lvl (test code = Sodium Lvl) 131 135-145 [place] 480482-07-27 09:07:00 Test Item Value Reference Range Interpretation Comments Potassium Lvl (test code = Potassium 3.2 3.5-5.1 Lvl) [facility] 99187VAVLI5657-27-20 09:07:00 Test Item Value Reference Range Interpretation Comments Chloride Lvl (test code = Chloride Lvl) 93 95-109 [place] 480482-07-27 09:07:00 Test Item Value Reference Range Interpretation Comments CO2 (test code = CO2) 31 24-32 [place] 480482-07-27 09:07:00 Test Item Value Reference Range Interpretation Comments Calcium Lvl (test code = Calcium Lvl) 8.0 8.5-10.5 [place] 480482-07-27 09:07:00 Test Item Value Reference Range Interpretation Comments Total Protein (test code = Total 5.7 6.4-8.4 Protein) [place] 480482-07-27 09:07:00 Test Item Value Reference Range Interpretation Comments Albumin Lvl (test code = Albumin Lvl) 2.6 3.5-5.0 [facility] [id number] 09:07:00 Test Item Value Reference Range Interpretation Comments ALT (test code = ALT) 18 See_Comment [Auto mated message] The system which ge nerated this result transmit lavon reference range : <=65. The reference range was not used to interpr et this result as dionne l/abnormal. [facility] [id number] 09:07:00 Test Item Value Reference Range Interpretation Comments AST (test code = AST) 28 See_Comment [Auto mated message] The system which ge nerated this result transmit lavon reference range : <=37. The reference range was not used to interpr et this result as dionne l/abnormal. [place] 480482-07-27 09:07:00 Test Item Value Reference Range Interpretation Comments Alk Phos (test code = Alk Phos) 44 39-136 [facility] [id number] 09:07:00 Test Item Value Reference Range Interpretation Comments Bili Total (test code = Bili Total) 1.1 0.2-1.3 [place] 480482-07-27 09:07:00 Test Item Value Reference Range Interpretation Comments AGAP (test code = AGAP) 10.2 10.0-20.0 [facility] [id number] 09:07:00 Test Item Value Reference Range Interpretation Comments B/C Ratio (test code = B/C Ratio) 31 1 6-25 [place] 480482-07-27 09:07:00 Test Item Value Reference Range Interpretation Comments Globulin (test code = Globulin) 3.1 2.7-4.2 [place] 480482-07-27 09:07:00 Test Item Value Reference Range Interpretation Comments A/G Ratio (test code = A/G Ratio) 0.8 1 0.7-1.6 [place] 480482-07-27 09:07:00 Test Item Value Reference Range Interpretation Comments eGFR (test code = eGFR) 59 [place] 325412-07-27 09:07:00 Test Item Value Reference Range Interpretation Comments WBC (test code = WBC) 7.2 3.7-10.4 [place] 325412-07-27 09:07:00 Test Item Value Reference Range Interpretation Comments RBC (test code = RBC) 3.06 4.20-5.40 [place] 325412-07-27 09:07:00 Test Item Value Reference Range Interpretation Comments Hgb (test code = Hgb) 7.4 12.0-16.0 [place] 325412-07-27 09:07:00 Test Item Value Reference Range Interpretation Comments Hct (test code = Hct) 22.5 36.0-48.0 [place] 325412-07-27 09:07:00 Test Item Value Reference Range Interpretation Comments MCV (test code = MCV) 73.6 80.0-98.0 [place] 325412-07-27 09:07:00 Test Item Value Reference Range Interpretation Comments MCH (test code = MCH) 24.2 pg 27.0-31.0 [place] 325412-07-27 09:07:00 Test Item Value Reference Range Interpretation Comments MCHC (test code = MCHC) 32.9 32.0-36.0 [place] 325412-07-27 09:07:00 Test Item Value Reference Range Interpretation Comments RDW (test code = RDW) 20.8 11.5-14.5 [place] 325412-07-27 09:07:00 Test Item Value Reference Range Interpretation Comments Platelet (test code = Platelet) 286 133-450 [facility] [id number] 09:07:00 Test Item Value Reference Range Interpretation Comments MPV (test code = MPV) 7.4 7.4-10.4 [facility] CampusDudrdvmSMNOYFIGBK5174-91-70 09:07:00 Test Item Value Reference Range Interpretation Comments Segs (test code = Segs) 73.8 45.0-75.0 [place] 325412-07-27 09:07:00 Test Item Value Reference Range Interpretation Comments Lymphocytes (test code = Lymphocytes) 17.2 20.0-40.0 [place] 325412-07-27 09:07:00 Test Item Value Reference Range Interpretation Comments Monocytes (test code = Monocytes) 8.8 2.0-12.0 [place] 325412-07-27 09:07:00 Test Item Value Reference Range Interpretation Comments Neutrophils # (test code = Neutrophils 5.3 1.5-8.1 #) [place] 325412-07-27 09:07:00 Test Item Value Reference Range Interpretation Comments Lymphocytes # (test code = Lymphocytes 1.2 1.0-5.5 #) [place] 325412-07-27 09:07:00 Test Item Value Reference Range Interpretation Comments Monocytes # (test code 0.6 See_Comment [Aut omated message] The = Monocytes #) system which generated this result tra nsmitted reference range : <=0.8. The reference r hugo was not used to int erpret this result as normal/abnormal . [facility] CampusLbkllheMPRRAZSDHL1346-31-28 09:07:00 Test Item Value Reference Range Interpretation Comments Microcyte (test code = 1+ *ABN*(06/15/22 Microcyte) 4:07 AM) [facility]2022-07-27 09:07:00 Test Item Value Reference Range Interpretation Comments Glucose Lvl (test code = Glucose Lvl) 108 70-99 [facility]2022-07-27 09:07:00 Test Item Value Reference Range Interpretation Comments BUN (test code = BUN) 29 -22 [place] 480482-07-27 09:07:00 Test Item Value Reference Range Interpretation Comments Creatinine Lvl (test code = Creatinine 0.94 0.50-1.40 Lvl) [place] 480482-07-27 09:07:00 Test Item Value Reference Range Interpretation Comments Sodium Lvl (test code = Sodium Lvl) 131 135-145 [place] 480482-07-27 09:07:00 Test Item Value Reference Range Interpretation Comments Potassium Lvl (test code = Potassium 3.2 3.5-5.1 Lvl) [place] [address]-07-27 09:07:00 Test Item Value Reference Range Interpretation Comments Chloride Lvl (test code = Chloride Lvl) 93 95-109 [place] [address]-07-27 09:07:00 Test Item Value Reference Range Interpretation Comments CO2 (test code = CO2) 31 24-32 [place] 480482-07-27 09:07:00 Test Item Value Reference Range Interpretation Comments Calcium Lvl (test code = Calcium Lvl) 8.0 8.5-10.5 [place] [address]-07-27 09:07:00 Test Item Value Reference Range Interpretation Comments Total Protein (test code = Total 5.7 6.4-8.4 Protein) [place] [address]-07-27 09:07:00 Test Item Value Reference Range Interpretation Comments Albumin Lvl (test code = Albumin Lvl) 2.6 3.5-5.0 [place] 480482-07-27 09:07:00 Test Item Value Reference Range Interpretation Comments ALT (test code = ALT) 18 See_Comment [Auto mated message] The system which ge nerated this result transmit lavon reference range : <=65. The reference range was not used to interpr et this result as dionne l/abnormal. [place] 480482-07-27 09:07:00 Test Item Value Reference Range Interpretation Comments AST (test code = AST) 28 See_Comment [Auto mated message] The system which ge nerated this result transmit lavon reference range : <=37. The reference range was not used to interpr et this result as dionne l/abnormal. [place] 480482-07-27 09:07:00 Test Item Value Reference Range Interpretation Comments Alk Phos (test code = Alk Phos) 44 39-136 [place] 480482-07-27 09:07:00 Test Item Value Reference Range Interpretation Comments Bili Total (test code = Bili Total) 1.1 0.2-1.3 [place] 480482-07-27 09:07:00 Test Item Value Reference Range Interpretation Comments AGAP (test code = AGAP) 10.2 10.0-20.0 [place] 480482-07-27 09:07:00 Test Item Value Reference Range Interpretation Comments B/C Ratio (test code = B/C Ratio) 31 1 6-25 [place] 480482-07-27 09:07:00 Test Item Value Reference Range Interpretation Comments Globulin (test code = Globulin) 3.1 2.7-4.2 [place] 480482-07-27 09:07:00 Test Item Value Reference Range Interpretation Comments A/G Ratio (test code = A/G Ratio) 0.8 1 0.7-1.6 [place] 480482-07-27 09:07:00 Test Item Value Reference Range Interpretation Comments eGFR (test code = eGFR) 59 [place] 325412-07-27 09:07:00 Test Item Value Reference Range Interpretation Comments WBC (test code = WBC) 7.2 3.7-10.4 [place] 325412-07-27 09:07:00 Test Item Value Reference Range Interpretation Comments RBC (test code = RBC) 3.06 4.20-5.40 [place] 325412-07-27 09:07:00 Test Item Value Reference Range Interpretation Comments Hgb (test code = Hgb) 7.4 12.0-16.0 [place] 325412-07-27 09:07:00 Test Item Value Reference Range Interpretation Comments Hct (test code = Hct) 22.5 36.0-48.0 [place] [address]-07-27 09:07:00 Test Item Value Reference Range Interpretation Comments MCV (test code = MCV) 73.6 80.0-98.0 [place] 325412-07-27 09:07:00 Test Item Value Reference Range Interpretation Comments MCH (test code = MCH) 24.2 pg 27.0-31.0 [place] 325412-07-27 09:07:00 Test Item Value Reference Range Interpretation Comments MCHC (test code = MCHC) 32.9 32.0-36.0 [place] 325412-07-27 09:07:00 Test Item Value Reference Range Interpretation Comments RDW (test code = RDW) 20.8 11.5-14.5 [place] 325412-07-27 09:07:00 Test Item Value Reference Range Interpretation Comments Platelet (test code = Platelet) 286 133-450 [facility] CampusMaxnpcqYXIGAVHXDG3182-18-34 09:07:00 Test Item Value Reference Range Interpretation Comments MPV (test code = MPV) 7.4 7.4-10.4 [place] 325412-07-27 09:07:00 Test Item Value Reference Range Interpretation Comments Segs (test code = Segs) 73.8 45.0-75.0 [place] 325412-07-27 09:07:00 Test Item Value Reference Range Interpretation Comments Lymphocytes (test code = Lymphocytes) 17.2 20.0-40.0 [facility] CampusXtbbokjHQRSKLABHR9726-39-61 09:07:00 Test Item Value Reference Range Interpretation Comments Monocytes (test code = Monocytes) 8.8 2.0-12.0 [facility] CampusHsitfkvGXEKPHOQPL0499-91-01 09:07:00 Test Item Value Reference Range Interpretation Comments Neutrophils # (test code = Neutrophils 5.3 1.5-8.1 #) [facility] CampusMgzalkmGRDSPNRQAW1480-71-97 09:07:00 Test Item Value Reference Range Interpretation Comments Lymphocytes # (test code = Lymphocytes 1.2 1.0-5.5 #) [facility] CampusVosgwwnVRNWZOBQLS2589-29-53 09:07:00 Test Item Value Reference Range Interpretation Comments Monocytes # (test code 0.6 See_Comment [Aut omated message] The = Monocytes #) system which generated this result tra nsmitted reference range : <=0.8. The reference r hugo was not used to int erpret this result as normal/abnormal . [facility] CampusPotpjvhZFWGGPJXWR8101-63-15 09:07:00 Test Item Value Reference Range Interpretation Comments Microcyte (test code = 1+ *ABN*(06/15/22 Microcyte) 4:07 AM) [facility]2022-07-27 09:07:00 Test Item Value Reference Range Interpretation Comments Glucose Lvl (test code = Glucose Lvl) 108 70-99 [place] [address]-07-27 09:07:00 Test Item Value Reference Range Interpretation Comments BUN (test code = BUN) 29 7-22 [place] 480482-07-27 09:07:00 Test Item Value Reference Range Interpretation Comments Creatinine Lvl (test code = Creatinine 0.94 0.50-1.40 Lvl) [place] [address]-07-27 09:07:00 Test Item Value Reference Range Interpretation Comments Sodium Lvl (test code = Sodium Lvl) 131 135-145 [place] [address]-07-27 09:07:00 Test Item Value Reference Range Interpretation Comments Potassium Lvl (test code = Potassium 3.2 3.5-5.1 Lvl) [place] [address]-07-27 09:07:00 Test Item Value Reference Range Interpretation Comments Chloride Lvl (test code = Chloride Lvl) 93 95-109 [place] 480482-07-27 09:07:00 Test Item Value Reference Range Interpretation Comments CO2 (test code = CO2) 31 24-32 [place] 480482-07-27 09:07:00 Test Item Value Reference Range Interpretation Comments Calcium Lvl (test code = Calcium Lvl) 8.0 8.5-10.5 [place] [address]-07-27 09:07:00 Test Item Value Reference Range Interpretation Comments Total Protein (test code = Total 5.7 6.4-8.4 Protein) [place] [address]-07-27 09:07:00 Test Item Value Reference Range Interpretation Comments Albumin Lvl (test code = Albumin Lvl) 2.6 3.5-5.0 [place] [address]-07-27 09:07:00 Test Item Value Reference Range Interpretation Comments ALT (test code = ALT) 18 See_Comment [Auto mated message] The system which ge nerated this result transmit lavon reference range : <=65. The reference range was not used to interpr et this result as dionne l/abnormal. [place] [address]-07-27 09:07:00 Test Item Value Reference Range Interpretation Comments AST (test code = AST) 28 See_Comment [Auto mated message] The system which ge nerated this result transmit lavon reference range : <=37. The reference range was not used to interpr et this result as dionne l/abnormal. [facility]2022-07-27 09:07:00 Test Item Value Reference Range Interpretation Comments Alk Phos (test code = Alk Phos) 44 39-136 [place] 480482-07-27 09:07:00 Test Item Value Reference Range Interpretation Comments Bili Total (test code = Bili Total) 1.1 0.2-1.3 [place] 480482-07-27 09:07:00 Test Item Value Reference Range Interpretation Comments AGAP (test code = AGAP) 10.2 10.0-20.0 [place] 480482-07-27 09:07:00 Test Item Value Reference Range Interpretation Comments B/C Ratio (test code = B/C Ratio) 31 1 6-25 [place] 480482-07-27 09:07:00 Test Item Value Reference Range Interpretation Comments Globulin (test code = Globulin) 3.1 2.7-4.2 [place] 480482-07-27 09:07:00 Test Item Value Reference Range Interpretation Comments A/G Ratio (test code = A/G Ratio) 0.8 1 0.7-1.6 [facility]2022-07-27 09:07:00 Test Item Value Reference Range Interpretation Comments eGFR (test code = eGFR) 59 [facility] CampusUiigftsZKOHIABFJD7986-85-57 09:07:00 Test Item Value Reference Range Interpretation Comments WBC (test code = WBC) 7.2 3.7-10.4 [facility] CampusOlfxzqqLIGNADPMJO7077-89-99 09:07:00 Test Item Value Reference Range Interpretation Comments RBC (test code = RBC) 3.06 4.20-5.40 [place] 325412-07-27 09:07:00 Test Item Value Reference Range Interpretation Comments Hgb (test code = Hgb) 7.4 12.0-16.0 [place] 325412-07-27 09:07:00 Test Item Value Reference Range Interpretation Comments Hct (test code = Hct) 22.5 36.0-48.0 [place] 325412-07-27 09:07:00 Test Item Value Reference Range Interpretation Comments MCV (test code = MCV) 73.6 80.0-98.0 [place] 325412-07-27 09:07:00 Test Item Value Reference Range Interpretation Comments MCH (test code = MCH) 24.2 pg 27.0-31.0 [facility] [id number] 09:07:00 Test Item Value Reference Range Interpretation Comments MCHC (test code = MCHC) 32.9 32.0-36.0 [facility] CampusAckrnlqIRGITLJUQF2291-26-09 09:07:00 Test Item Value Reference Range Interpretation Comments RDW (test code = RDW) 20.8 11.5-14.5 [facility] CampusZsfqeezTCMNDCINRQ4343-40-85 09:07:00 Test Item Value Reference Range Interpretation Comments Platelet (test code = Platelet) 286 133-450 [facility] CampusXwfryyxYUETCLFFTX5573-99-08 09:07:00 Test Item Value Reference Range Interpretation Comments MPV (test code = MPV) 7.4 7.4-10.4 [place] 325412-07-27 09:07:00 Test Item Value Reference Range Interpretation Comments Segs (test code = Segs) 73.8 45.0-75.0 [facility] Camp[id number] 09:07:00 Test Item Value Reference Range Interpretation Comments Lymphocytes (test code = Lymphocytes) 17.2 20.0-40.0 [facility] CampusSckkcrlQKJYOJJJAK4393-08-89 09:07:00 Test Item Value Reference Range Interpretation Comments Monocytes (test code = Monocytes) 8.8 2.0-12.0 [facility] CampusD[id number] 09:07:00 Test Item Value Reference Range Interpretation Comments Neutrophils # (test code = Neutrophils 5.3 1.5-8.1 #) [facility] CampusNmhgdffOMJEJYOZIO0985-47-82 09:07:00 Test Item Value Reference Range Interpretation Comments Lymphocytes # (test code = Lymphocytes 1.2 1.0-5.5 #) [place] 325412-07-27 09:07:00 Test Item Value Reference Range Interpretation Comments Monocytes # (test code 0.6 See_Comment [Aut omated message] The = Monocytes #) system which generated this result tra nsmitted reference range : <=0.8. The reference r hugo was not used to int erpret this result as normal/abnormal . [facility] CampusBdmvllsNLVATDLIKA5690-32-45 09:07:00 Test Item Value Reference Range Interpretation Comments Microcyte (test code = 1+ *ABN*(06/15/22 Microcyte) 4:07 AM) [place] 480482-07-27 09:07:00 Test Item Value Reference Range Interpretation Comments Glucose Lvl (test code = Glucose Lvl) 108 70-99 [place] 480482-07-27 09:07:00 Test Item Value Reference Range Interpretation Comments BUN (test code = BUN) 29 - [place] 480482-07-27 09:07:00 Test Item Value Reference Range Interpretation Comments Creatinine Lvl (test code = Creatinine 0.94 0.50-1.40 Lvl) [place] 480482-07-27 09:07:00 Test Item Value Reference Range Interpretation Comments Sodium Lvl (test code = Sodium Lvl) 131 135-145 [place] 480482-07-27 09:07:00 Test Item Value Reference Range Interpretation Comments Potassium Lvl (test code = Potassium 3.2 3.5-5.1 Lvl) [place] 480482-07-27 09:07:00 Test Item Value Reference Range Interpretation Comments Chloride Lvl (test code = Chloride Lvl) 93 95-109 [place] 480482-07-27 09:07:00 Test Item Value Reference Range Interpretation Comments CO2 (test code = CO2) 31 24-32 [place] 480482-07-27 09:07:00 Test Item Value Reference Range Interpretation Comments Calcium Lvl (test code = Calcium Lvl) 8.0 8.5-10.5 [place] 480482-07-27 09:07:00 Test Item Value Reference Range Interpretation Comments Total Protein (test code = Total 5.7 6.4-8.4 Protein) [place] 480482-07-27 09:07:00 Test Item Value Reference Range Interpretation Comments Albumin Lvl (test code = Albumin Lvl) 2.6 3.5-5.0 [place] 480482-07-27 09:07:00 Test Item Value Reference Range Interpretation Comments ALT (test code = ALT) 18 See_Comment [Auto mated message] The system which ge nerated this result transmit lavon reference range : <=65. The reference range was not used to interpr et this result as dionne l/abnormal. [place] 480482-07-27 09:07:00 Test Item Value Reference Range Interpretation Comments AST (test code = AST) 28 See_Comment [Auto mated message] The system which ge nerated this result transmit lavon reference range : <=37. The reference range was not used to interpr et this result as dionne l/abnormal. [place] 480482-07-27 09:07:00 Test Item Value Reference Range Interpretation Comments Alk Phos (test code = Alk Phos) 44 39-136 [place] 480482-07-27 09:07:00 Test Item Value Reference Range Interpretation Comments Bili Total (test code = Bili Total) 1.1 0.2-1.3 [place] [address]-07-27 09:07:00 Test Item Value Reference Range Interpretation Comments AGAP (test code = AGAP) 10.2 10.0-20.0 [place] 480482-07-27 09:07:00 Test Item Value Reference Range Interpretation Comments B/C Ratio (test code = B/C Ratio) 31 1 6-25 [place] 480482-07-27 09:07:00 Test Item Value Reference Range Interpretation Comments Globulin (test code = Globulin) 3.1 2.7-4.2 [place] 480482-07-27 09:07:00 Test Item Value Reference Range Interpretation Comments A/G Ratio (test code = A/G Ratio) 0.8 1 0.7-1.6 [place] 480482-07-27 09:07:00 Test Item Value Reference Range Interpretation Comments eGFR (test code = eGFR) 59 [place] 325412-07-27 09:07:00 Test Item Value Reference Range Interpretation Comments WBC (test code = WBC) 7.2 3.7-10.4 [place] [address]-07-27 09:07:00 Test Item Value Reference Range Interpretation Comments RBC (test code = RBC) 3.06 4.20-5.40 [place] [address]-07-27 09:07:00 Test Item Value Reference Range Interpretation Comments Hgb (test code = Hgb) 7.4 12.0-16.0 [place] 325412-07-27 09:07:00 Test Item Value Reference Range Interpretation Comments Hct (test code = Hct) 22.5 36.0-48.0 [place] 325412-07-27 09:07:00 Test Item Value Reference Range Interpretation Comments MCV (test code = MCV) 73.6 80.0-98.0 [place] 325412-07-27 09:07:00 Test Item Value Reference Range Interpretation Comments MCH (test code = MCH) 24.2 pg 27.0-31.0 [facility] CampusXpskcjdZVPUCMTEMT5092-50-47 09:07:00 Test Item Value Reference Range Interpretation Comments MCHC (test code = MCHC) 32.9 32.0-36.0 [place] 325412-07-27 09:07:00 Test Item Value Reference Range Interpretation Comments RDW (test code = RDW) 20.8 11.5-14.5 [place] 325412-07-27 09:07:00 Test Item Value Reference Range Interpretation Comments Platelet (test code = Platelet) 286 133-450 [facility] CampusZjdwcyvZZUACYCMZU7701-62-06 09:07:00 Test Item Value Reference Range Interpretation Comments MPV (test code = MPV) 7.4 7.4-10.4 [place] 325412-07-27 09:07:00 Test Item Value Reference Range Interpretation Comments Segs (test code = Segs) 73.8 45.0-75.0 [place] 325412-07-27 09:07:00 Test Item Value Reference Range Interpretation Comments Lymphocytes (test code = Lymphocytes) 17.2 20.0-40.0 [place] 325412-07-27 09:07:00 Test Item Value Reference Range Interpretation Comments Monocytes (test code = Monocytes) 8.8 2.0-12.0 [place] 325412-07-27 09:07:00 Test Item Value Reference Range Interpretation Comments Neutrophils # (test code = Neutrophils 5.3 1.5-8.1 #) [facility] CampusZfybkypLGOSKEXZPT8208-33-40 09:07:00 Test Item Value Reference Range Interpretation Comments Lymphocytes # (test code = Lymphocytes 1.2 1.0-5.5 #) [place] 325412-07-27 09:07:00 Test Item Value Reference Range Interpretation Comments Monocytes # (test code 0.6 See_Comment [Aut omated message] The = Monocytes #) system which generated this result tra nsmitted reference range : <=0.8. The reference r hugo was not used to int erpret this result as normal/abnormal . [facility] CampusDrvhymqYUJZHALGEW8688-66-64 09:07:00 Test Item Value Reference Range Interpretation Comments Microcyte (test code = 1+ *ABN*(06/15/22 Microcyte) 4:07 AM) [place] 480482-07-26 18:34:00 Test Item Value Reference Range Interpretation Comments Glucose Lvl (test code = Glucose Lvl) 110 70-99 [place] 480482-07-26 18:34:00 Test Item Value Reference Range Interpretation Comments BUN (test code = BUN) 28 06-10 [place] 480482-07-26 18:34:00 Test Item Value Reference Range Interpretation Comments Creatinine Lvl (test code = Creatinine 1.05 0.50-1.40 Lvl) [place] 480482-07-26 18:34:00 Test Item Value Reference Range Interpretation Comments Sodium Lvl (test code = Sodium Lvl) 132 135-145 [place] 480482-07-26 18:34:00 Test Item Value Reference Range Interpretation Comments Potassium Lvl (test code = Potassium 4.4 3.5-5.1 Lvl) [place] 480482-07-26 18:34:00 Test Item Value Reference Range Interpretation Comments Chloride Lvl (test code = Chloride Lvl) 96 95-109 [place] 480482-07-26 18:34:00 Test Item Value Reference Range Interpretation Comments CO2 (test code = CO2) 27 24-32 [place] 480482-07-26 18:34:00 Test Item Value Reference Range Interpretation Comments Calcium Lvl (test code = Calcium Lvl) 8.5 8.5-10.5 [place] 480482-07-26 18:34:00 Test Item Value Reference Range Interpretation Comments AGAP (test code = AGAP) 13.4 10.0-20.0 [place] 480482-07-26 18:34:00 Test Item Value Reference Range Interpretation Comments eGFR (test code = eGFR) 51 [place] 325412-07-26 18:34:00 Test Item Value Reference Range Interpretation Comments WBC (test code = WBC) 13.5 3.7-10.4 [facility] CampusJtwgclfNLDVSFCWCF8943-44-24 18:34:00 Test Item Value Reference Range Interpretation Comments RBC (test code = RBC) 3.63 4.20-5.40 [place] 325412-07-26 18:34:00 Test Item Value Reference Range Interpretation Comments Hgb (test code = Hgb) 8.7 12.0-16.0 [place] 325412-07-26 18:34:00 Test Item Value Reference Range Interpretation Comments Hct (test code = Hct) 28.2 36.0-48.0 [facility] CampusPzhjsjdLJKYDMMHBN6477-49-62 18:34:00 Test Item Value Reference Range Interpretation Comments MCV (test code = MCV) 77.5 80.0-98.0 [place] 325412-07-26 18:34:00 Test Item Value Reference Range Interpretation Comments MCH (test code = MCH) 24.0 pg 27.0-31.0 [facility] CampusMchwezrYURWLEJFTF6770-26-29 18:34:00 Test Item Value Reference Range Interpretation Comments MCHC (test code = MCHC) 30.9 32.0-36.0 [facility] CampusYzusjhyDCEVGTSXBZ7329-04-51 18:34:00 Test Item Value Reference Range Interpretation Comments RDW (test code = RDW) 21.2 11.5-14.5 [facility] CampusAictljrFBEXBPUBNH4258-98-58 18:34:00 Test Item Value Reference Range Interpretation Comments Platelet (test code = Platelet) 324 133-450 [facility] CampusBnwcowoUGOTNIQXQZ7811-29-86 18:34:00 Test Item Value Reference Range Interpretation Comments MPV (test code = MPV) 7.6 7.4-10.4 [facility] CampusClkhtgjNOLLBTXUVV0049-72-53 18:34:00 Test Item Value Reference Range Interpretation Comments Plt Morph (test code = Normal (06/14/22 1:34 Plt Morph) PM) [facility] CampusEkrhlwmGEDSXRSXOA6221-82-35 18:34:00 Test Item Value Reference Range Interpretation Comments Segs (test code = Segs) 89.0 45.0-75.0 [place] 325412-07-26 18:34:00 Test Item Value Reference Range Interpretation Comments Bands (test code = 3.0 See_Comment [Automat ed message] The Bands) system which ge nerated this result transmit lavon reference range : <=11.0. The reference r hugo was not used to interpr et this result as dionne l/abnormal. [place] [address]-07-26 18:34:00 Test Item Value Reference Range Interpretation Comments Lymphocytes (test code = Lymphocytes) 8.0 20.0-40.0 [place] [address]-07-26 18:34:00 Test Item Value Reference Range Interpretation Comments Monocytes (test code = Monocytes) 0.0 2.0-12.0 [place] [address]-07-26 18:34:00 Test Item Value Reference Range Interpretation Comments Neutrophils # (test code = Neutrophils 12.4 1.5-8.1 #) [place] [address]-07-26 18:34:00 Test Item Value Reference Range Interpretation Comments Lymphocytes # (test code = Lymphocytes 1.1 1.0-5.5 #) [place] [address]-07-26 18:34:00 Test Item Value Reference Range Interpretation Comments Monocytes # (test code 0.0 See_Comment [Aut omated message] The = Monocytes #) system which generated this result tra nsmitted reference range : <=0.8. The reference r hugo was not used to int erpret this result as normal/abnormal . [place] 325412-07-26 18:34:00 Test Item Value Reference Range Interpretation Comments Hypochrom (test code = 1+ (06/14/22 1:34 PM) Hypochrom) [place] 480482-07-26 18:34:00 Test Item Value Reference Range Interpretation Comments Glucose Lvl (test code = Glucose Lvl) 110 70-99 [place] 480482-07-26 18:34:00 Test Item Value Reference Range Interpretation Comments BUN (test code = BUN) 28 7- [place] 480482-07-26 18:34:00 Test Item Value Reference Range Interpretation Comments Creatinine Lvl (test code = Creatinine 1.05 0.50-1.40 Lvl) [place] 480482-07-26 18:34:00 Test Item Value Reference Range Interpretation Comments Sodium Lvl (test code = Sodium Lvl) 132 135-145 [place] 480482-07-26 18:34:00 Test Item Value Reference Range Interpretation Comments Potassium Lvl (test code = Potassium 4.4 3.5-5.1 Lvl) [place] 480482-07-26 18:34:00 Test Item Value Reference Range Interpretation Comments Chloride Lvl (test code = Chloride Lvl) 96 95-109 [place] 480482-07-26 18:34:00 Test Item Value Reference Range Interpretation Comments CO2 (test code = CO2) 27 24-32 [place] [address]-07-26 18:34:00 Test Item Value Reference Range Interpretation Comments Calcium Lvl (test code = Calcium Lvl) 8.5 8.5-10.5 [place] 480482-07-26 18:34:00 Test Item Value Reference Range Interpretation Comments AGAP (test code = AGAP) 13.4 10.0-20.0 [place] 480482-07-26 18:34:00 Test Item Value Reference Range Interpretation Comments eGFR (test code = eGFR) 51 [place] 325412-07-26 18:34:00 Test Item Value Reference Range Interpretation Comments WBC (test code = WBC) 13.5 3.7-10.4 [place] [address]-07-26 18:34:00 Test Item Value Reference Range Interpretation Comments RBC (test code = RBC) 3.63 4.20-5.40 [place] [address]-07-26 18:34:00 Test Item Value Reference Range Interpretation Comments Hgb (test code = Hgb) 8.7 12.0-16.0 [place] [address]-07-26 18:34:00 Test Item Value Reference Range Interpretation Comments Hct (test code = Hct) 28.2 36.0-48.0 [place] [address]-07-26 18:34:00 Test Item Value Reference Range Interpretation Comments MCV (test code = MCV) 77.5 80.0-98.0 [place] [address]-07-26 18:34:00 Test Item Value Reference Range Interpretation Comments MCH (test code = MCH) 24.0 pg 27.0-31.0 [place] [address]-07-26 18:34:00 Test Item Value Reference Range Interpretation Comments MCHC (test code = MCHC) 30.9 32.0-36.0 [place] [address]-07-26 18:34:00 Test Item Value Reference Range Interpretation Comments RDW (test code = RDW) 21.2 11.5-14.5 [place] [address]-07-26 18:34:00 Test Item Value Reference Range Interpretation Comments Platelet (test code = Platelet) 324 133-450 [place] 325412-07-26 18:34:00 Test Item Value Reference Range Interpretation Comments MPV (test code = MPV) 7.6 7.4-10.4 [place] 325412-07-26 18:34:00 Test Item Value Reference Range Interpretation Comments Plt Morph (test code = Normal (06/14/22 1:34 Plt Morph) PM) [place] [address]-07-26 18:34:00 Test Item Value Reference Range Interpretation Comments Segs (test code = Segs) 89.0 45.0-75.0 [place] [address]-07-26 18:34:00 Test Item Value Reference Range Interpretation Comments Bands (test code = 3.0 See_Comment [Automat ed message] The Bands) system which ge nerated this result transmit lavon reference range : <=11.0. The reference r hugo was not used to interpr et this result as dionne l/abnormal. [place] 325412-07-26 18:34:00 Test Item Value Reference Range Interpretation Comments Lymphocytes (test code = Lymphocytes) 8.0 20.0-40.0 [place] [address]-07-26 18:34:00 Test Item Value Reference Range Interpretation Comments Monocytes (test code = Monocytes) 0.0 2.0-12.0 [place] [address]-07-26 18:34:00 Test Item Value Reference Range Interpretation Comments Neutrophils # (test code = Neutrophils 12.4 1.5-8.1 #) [place] [address]-07-26 18:34:00 Test Item Value Reference Range Interpretation Comments Lymphocytes # (test code = Lymphocytes 1.1 1.0-5.5 #) [place] [address]-07-26 18:34:00 Test Item Value Reference Range Interpretation Comments Monocytes # (test code 0.0 See_Comment [Aut omated message] The = Monocytes #) system which generated this result tra nsmitted reference range : <=0.8. The reference r hugo was not used to int erpret this result as normal/abnormal . [place] 325412-07-26 18:34:00 Test Item Value Reference Range Interpretation Comments Hypochrom (test code = 1+ (06/14/22 1:34 PM) Hypochrom) [place] 480482-07-26 18:34:00 Test Item Value Reference Range Interpretation Comments Glucose Lvl (test code = Glucose Lvl) 110 70-99 [place] 480482-07-26 18:34:00 Test Item Value Reference Range Interpretation Comments BUN (test code = BUN) 28 - [place] 480482-07-26 18:34:00 Test Item Value Reference Range Interpretation Comments Creatinine Lvl (test code = Creatinine 1.05 0.50-1.40 Lvl) [place] 480482-07-26 18:34:00 Test Item Value Reference Range Interpretation Comments Sodium Lvl (test code = Sodium Lvl) 132 135-145 [place] 480482-07-26 18:34:00 Test Item Value Reference Range Interpretation Comments Potassium Lvl (test code = Potassium 4.4 3.5-5.1 Lvl) [place] 480482-07-26 18:34:00 Test Item Value Reference Range Interpretation Comments Chloride Lvl (test code = Chloride Lvl) 96 95-109 [place] 480482-07-26 18:34:00 Test Item Value Reference Range Interpretation Comments CO2 (test code = CO2) 27 24-32 [place] 480482-07-26 18:34:00 Test Item Value Reference Range Interpretation Comments Calcium Lvl (test code = Calcium Lvl) 8.5 8.5-10.5 [place] 480482-07-26 18:34:00 Test Item Value Reference Range Interpretation Comments AGAP (test code = AGAP) 13.4 10.0-20.0 [place] 480482-07-26 18:34:00 Test Item Value Reference Range Interpretation Comments eGFR (test code = eGFR) 51 [place] 325412-07-26 18:34:00 Test Item Value Reference Range Interpretation Comments WBC (test code = WBC) 13.5 3.7-10.4 [facility] [id number] 18:34:00 Test Item Value Reference Range Interpretation Comments RBC (test code = RBC) 3.63 4.20-5.40 [place] 325412-07-26 18:34:00 Test Item Value Reference Range Interpretation Comments Hgb (test code = Hgb) 8.7 12.0-16.0 [place] 325412-07-26 18:34:00 Test Item Value Reference Range Interpretation Comments Hct (test code = Hct) 28.2 36.0-48.0 [facility] CampusSrfivklKFQIWXBAOM6122-85-90 18:34:00 Test Item Value Reference Range Interpretation Comments MCV (test code = MCV) 77.5 80.0-98.0 [place] 325412-07-26 18:34:00 Test Item Value Reference Range Interpretation Comments MCH (test code = MCH) 24.0 pg 27.0-31.0 [facility] CampusFjdncxyCYFHWZAWLM9665-05-29 18:34:00 Test Item Value Reference Range Interpretation Comments MCHC (test code = MCHC) 30.9 32.0-36.0 [facility] CampusKjsuurtGSIMZSPHXK5360-66-24 18:34:00 Test Item Value Reference Range Interpretation Comments RDW (test code = RDW) 21.2 11.5-14.5 [facility] CampusTnsomdnGCPVCDXXSX1438-52-38 18:34:00 Test Item Value Reference Range Interpretation Comments Platelet (test code = Platelet) 324 133-450 [facility] CampusCuqggqmVEQEBHYFHC6816-11-02 18:34:00 Test Item Value Reference Range Interpretation Comments MPV (test code = MPV) 7.6 7.4-10.4 [facility] CampusRsizduwEQQAMQMZXU4755-88-52 18:34:00 Test Item Value Reference Range Interpretation Comments Plt Morph (test code = Normal (06/14/22 1:34 Plt Morph) PM) [facility] CampusOwlvsfxIGFGGFODVR6952-01-24 18:34:00 Test Item Value Reference Range Interpretation Comments Segs (test code = Segs) 89.0 45.0-75.0 [place] 325412-07-26 18:34:00 Test Item Value Reference Range Interpretation Comments Bands (test code = 3.0 See_Comment [Automat ed message] The Bands) system which ge nerated this result transmit lavon reference range : <=11.0. The reference r hugo was not used to interpr et this result as dionne l/abnormal. [place] [address]-07-26 18:34:00 Test Item Value Reference Range Interpretation Comments Lymphocytes (test code = Lymphocytes) 8.0 20.0-40.0 [place] [address]-07-26 18:34:00 Test Item Value Reference Range Interpretation Comments Monocytes (test code = Monocytes) 0.0 2.0-12.0 [place] [address]-07-26 18:34:00 Test Item Value Reference Range Interpretation Comments Neutrophils # (test code = Neutrophils 12.4 1.5-8.1 #) [place] [address]-07-26 18:34:00 Test Item Value Reference Range Interpretation Comments Lymphocytes # (test code = Lymphocytes 1.1 1.0-5.5 #) [place] [address]-07-26 18:34:00 Test Item Value Reference Range Interpretation Comments Monocytes # (test code 0.0 See_Comment [Aut omated message] The = Monocytes #) system which generated this result tra nsmitted reference range : <=0.8. The reference r hugo was not used to int erpret this result as normal/abnormal . [place] 325412-07-26 18:34:00 Test Item Value Reference Range Interpretation Comments Hypochrom (test code = 1+ (06/14/22 1:34 PM) Hypochrom) [place] 480482-07-26 18:34:00 Test Item Value Reference Range Interpretation Comments Glucose Lvl (test code = Glucose Lvl) 110 70-99 [place] 480482-07-26 18:34:00 Test Item Value Reference Range Interpretation Comments BUN (test code = BUN) 28 7- [place] 480482-07-26 18:34:00 Test Item Value Reference Range Interpretation Comments Creatinine Lvl (test code = Creatinine 1.05 0.50-1.40 Lvl) [place] 480482-07-26 18:34:00 Test Item Value Reference Range Interpretation Comments Sodium Lvl (test code = Sodium Lvl) 132 135-145 [place] 480482-07-26 18:34:00 Test Item Value Reference Range Interpretation Comments Potassium Lvl (test code = Potassium 4.4 3.5-5.1 Lvl) [place] 480482-07-26 18:34:00 Test Item Value Reference Range Interpretation Comments Chloride Lvl (test code = Chloride Lvl) 96 95-109 [place] 480482-07-26 18:34:00 Test Item Value Reference Range Interpretation Comments CO2 (test code = CO2) 27 24-32 [place] [address]-07-26 18:34:00 Test Item Value Reference Range Interpretation Comments Calcium Lvl (test code = Calcium Lvl) 8.5 8.5-10.5 [place] 480482-07-26 18:34:00 Test Item Value Reference Range Interpretation Comments AGAP (test code = AGAP) 13.4 10.0-20.0 [place] 480482-07-26 18:34:00 Test Item Value Reference Range Interpretation Comments eGFR (test code = eGFR) 51 [place] 325412-07-26 18:34:00 Test Item Value Reference Range Interpretation Comments WBC (test code = WBC) 13.5 3.7-10.4 [place] [address]-07-26 18:34:00 Test Item Value Reference Range Interpretation Comments RBC (test code = RBC) 3.63 4.20-5.40 [place] [address]-07-26 18:34:00 Test Item Value Reference Range Interpretation Comments Hgb (test code = Hgb) 8.7 12.0-16.0 [place] [address]-07-26 18:34:00 Test Item Value Reference Range Interpretation Comments Hct (test code = Hct) 28.2 36.0-48.0 [place] [address]-07-26 18:34:00 Test Item Value Reference Range Interpretation Comments MCV (test code = MCV) 77.5 80.0-98.0 [place] [address]-07-26 18:34:00 Test Item Value Reference Range Interpretation Comments MCH (test code = MCH) 24.0 pg 27.0-31.0 [place] [address]-07-26 18:34:00 Test Item Value Reference Range Interpretation Comments MCHC (test code = MCHC) 30.9 32.0-36.0 [place] [address]-07-26 18:34:00 Test Item Value Reference Range Interpretation Comments RDW (test code = RDW) 21.2 11.5-14.5 [place] [address]-07-26 18:34:00 Test Item Value Reference Range Interpretation Comments Platelet (test code = Platelet) 324 133-450 [place] 325412-07-26 18:34:00 Test Item Value Reference Range Interpretation Comments MPV (test code = MPV) 7.6 7.4-10.4 [place] 325412-07-26 18:34:00 Test Item Value Reference Range Interpretation Comments Plt Morph (test code = Normal (06/14/22 1:34 Plt Morph) PM) [place] [address]-07-26 18:34:00 Test Item Value Reference Range Interpretation Comments Segs (test code = Segs) 89.0 45.0-75.0 [place] [address]-07-26 18:34:00 Test Item Value Reference Range Interpretation Comments Bands (test code = 3.0 See_Comment [Automat ed message] The Bands) system which ge nerated this result transmit lavon reference range : <=11.0. The reference r hugo was not used to interpr et this result as dionne l/abnormal. [place] 325412-07-26 18:34:00 Test Item Value Reference Range Interpretation Comments Lymphocytes (test code = Lymphocytes) 8.0 20.0-40.0 [place] [address]-07-26 18:34:00 Test Item Value Reference Range Interpretation Comments Monocytes (test code = Monocytes) 0.0 2.0-12.0 [place] [address]-07-26 18:34:00 Test Item Value Reference Range Interpretation Comments Neutrophils # (test code = Neutrophils 12.4 1.5-8.1 #) [place] [address]-07-26 18:34:00 Test Item Value Reference Range Interpretation Comments Lymphocytes # (test code = Lymphocytes 1.1 1.0-5.5 #) [place] [address]-07-26 18:34:00 Test Item Value Reference Range Interpretation Comments Monocytes # (test code 0.0 See_Comment [Aut omated message] The = Monocytes #) system which generated this result tra nsmitted reference range : <=0.8. The reference r hugo was not used to int erpret this result as normal/abnormal . [place] 325412-07-26 18:34:00 Test Item Value Reference Range Interpretation Comments Hypochrom (test code = 1+ (06/14/22 1:34 PM) Hypochrom) [place] 480482-07-26 18:34:00 Test Item Value Reference Range Interpretation Comments Glucose Lvl (test code = Glucose Lvl) 110 70-99 [place] 480482-07-26 18:34:00 Test Item Value Reference Range Interpretation Comments BUN (test code = BUN) 28 - [place] 480482-07-26 18:34:00 Test Item Value Reference Range Interpretation Comments Creatinine Lvl (test code = Creatinine 1.05 0.50-1.40 Lvl) [place] 480482-07-26 18:34:00 Test Item Value Reference Range Interpretation Comments Sodium Lvl (test code = Sodium Lvl) 132 135-145 [place] 480482-07-26 18:34:00 Test Item Value Reference Range Interpretation Comments Potassium Lvl (test code = Potassium 4.4 3.5-5.1 Lvl) [place] 480482-07-26 18:34:00 Test Item Value Reference Range Interpretation Comments Chloride Lvl (test code = Chloride Lvl) 96 95-109 [place] 480482-07-26 18:34:00 Test Item Value Reference Range Interpretation Comments CO2 (test code = CO2) 27 24-32 [place] 480482-07-26 18:34:00 Test Item Value Reference Range Interpretation Comments Calcium Lvl (test code = Calcium Lvl) 8.5 8.5-10.5 [place] 480482-07-26 18:34:00 Test Item Value Reference Range Interpretation Comments AGAP (test code = AGAP) 13.4 10.0-20.0 [place] 480482-07-26 18:34:00 Test Item Value Reference Range Interpretation Comments eGFR (test code = eGFR) 51 [place] 325412-07-26 18:34:00 Test Item Value Reference Range Interpretation Comments WBC (test code = WBC) 13.5 3.7-10.4 [id number] 18:34:00 Test Item Value Reference Range Interpretation Comments RBC (test code = RBC) 3.63 4.20-5.40 [place] 325412-07-26 18:34:00 Test Item Value Reference Range Interpretation Comments Hgb (test code = Hgb) 8.7 12.0-16.0 [place] 325412-07-26 18:34:00 Test Item Value Reference Range Interpretation Comments Hct (test code = Hct) 28.2 36.0-48.0 [facility] [id number] 18:34:00 Test Item Value Reference Range Interpretation Comments MCV (test code = MCV) 77.5 80.0-98.0 [place] 325412-07-26 18:34:00 Test Item Value Reference Range Interpretation Comments MCH (test code = MCH) 24.0 pg 27.0-31.0 [facility] [id number] 18:34:00 Test Item Value Reference Range Interpretation Comments MCHC (test code = MCHC) 30.9 32.0-36.0 [facility] [id number] 18:34:00 Test Item Value Reference Range Interpretation Comments RDW (test code = RDW) 21.2 11.5-14.5 [facility] [id number] 18:34:00 Test Item Value Reference Range Interpretation Comments Platelet (test code = Platelet) 324 133-450 [facility] [id number] 18:34:00 Test Item Value Reference Range Interpretation Comments MPV (test code = MPV) 7.6 7.4-10.4 [facility] [id number] 18:34:00 Test Item Value Reference Range Interpretation Comments Plt Morph (test code = Normal (06/14/22 1:34 Plt Morph) PM) [facility] [id number] 18:34:00 Test Item Value Reference Range Interpretation Comments Segs (test code = Segs) 89.0 45.0-75.0 [place] 325412-07-26 18:34:00 Test Item Value Reference Range Interpretation Comments Bands (test code = 3.0 See_Comment [Automat ed message] The Bands) system which ge nerated this result transmit lavon reference range : <=11.0. The reference r hugo was not used to interpr et this result as dionne l/abnormal. [place] [address]-07-26 18:34:00 Test Item Value Reference Range Interpretation Comments Lymphocytes (test code = Lymphocytes) 8.0 20.0-40.0 [place] [address]-07-26 18:34:00 Test Item Value Reference Range Interpretation Comments Monocytes (test code = Monocytes) 0.0 2.0-12.0 [place] [address]-07-26 18:34:00 Test Item Value Reference Range Interpretation Comments Neutrophils # (test code = Neutrophils 12.4 1.5-8.1 #) [place] [address]-07-26 18:34:00 Test Item Value Reference Range Interpretation Comments Lymphocytes # (test code = Lymphocytes 1.1 1.0-5.5 #) [place] [address]-07-26 18:34:00 Test Item Value Reference Range Interpretation Comments Monocytes # (test code 0.0 See_Comment [Aut omated message] The = Monocytes #) system which generated this result tra nsmitted reference range : <=0.8. The reference r hugo was not used to int erpret this result as normal/abnormal . [place] 325412-07-26 18:34:00 Test Item Value Reference Range Interpretation Comments Hypochrom (test code = 1+ (06/14/22 1:34 PM) Hypochrom) [place] 480482-07-26 18:34:00 Test Item Value Reference Range Interpretation Comments Glucose Lvl (test code = Glucose Lvl) 110 70-99 [place] 480482-07-26 18:34:00 Test Item Value Reference Range Interpretation Comments BUN (test code = BUN) 28 7- [place] 480482-07-26 18:34:00 Test Item Value Reference Range Interpretation Comments Creatinine Lvl (test code = Creatinine 1.05 0.50-1.40 Lvl) [place] 480482-07-26 18:34:00 Test Item Value Reference Range Interpretation Comments Sodium Lvl (test code = Sodium Lvl) 132 135-145 [place] 480482-07-26 18:34:00 Test Item Value Reference Range Interpretation Comments Potassium Lvl (test code = Potassium 4.4 3.5-5.1 Lvl) [place] 480482-07-26 18:34:00 Test Item Value Reference Range Interpretation Comments Chloride Lvl (test code = Chloride Lvl) 96 95-109 [place] 480482-07-26 18:34:00 Test Item Value Reference Range Interpretation Comments CO2 (test code = CO2) 27 24-32 [place] [address]-07-26 18:34:00 Test Item Value Reference Range Interpretation Comments Calcium Lvl (test code = Calcium Lvl) 8.5 8.5-10.5 [place] 480482-07-26 18:34:00 Test Item Value Reference Range Interpretation Comments AGAP (test code = AGAP) 13.4 10.0-20.0 [place] 480482-07-26 18:34:00 Test Item Value Reference Range Interpretation Comments eGFR (test code = eGFR) 51 [place] 325412-07-26 18:34:00 Test Item Value Reference Range Interpretation Comments WBC (test code = WBC) 13.5 3.7-10.4 [place] [address]-07-26 18:34:00 Test Item Value Reference Range Interpretation Comments RBC (test code = RBC) 3.63 4.20-5.40 [place] [address]-07-26 18:34:00 Test Item Value Reference Range Interpretation Comments Hgb (test code = Hgb) 8.7 12.0-16.0 [place] [address]-07-26 18:34:00 Test Item Value Reference Range Interpretation Comments Hct (test code = Hct) 28.2 36.0-48.0 [place] [address]-07-26 18:34:00 Test Item Value Reference Range Interpretation Comments MCV (test code = MCV) 77.5 80.0-98.0 [place] [address]-07-26 18:34:00 Test Item Value Reference Range Interpretation Comments MCH (test code = MCH) 24.0 pg 27.0-31.0 [place] [address]-07-26 18:34:00 Test Item Value Reference Range Interpretation Comments MCHC (test code = MCHC) 30.9 32.0-36.0 [place] [address]-07-26 18:34:00 Test Item Value Reference Range Interpretation Comments RDW (test code = RDW) 21.2 11.5-14.5 [place] [address]-07-26 18:34:00 Test Item Value Reference Range Interpretation Comments Platelet (test code = Platelet) 324 133-450 [place] 325412-07-26 18:34:00 Test Item Value Reference Range Interpretation Comments MPV (test code = MPV) 7.6 7.4-10.4 [place] 325412-07-26 18:34:00 Test Item Value Reference Range Interpretation Comments Plt Morph (test code = Normal (06/14/22 1:34 Plt Morph) PM) [place] [address]-07-26 18:34:00 Test Item Value Reference Range Interpretation Comments Segs (test code = Segs) 89.0 45.0-75.0 [place] [address]-07-26 18:34:00 Test Item Value Reference Range Interpretation Comments Bands (test code = 3.0 See_Comment [Automat ed message] The Bands) system which ge nerated this result transmit lavon reference range : <=11.0. The reference r hugo was not used to interpr et this result as dionne l/abnormal. [place] 325412-07-26 18:34:00 Test Item Value Reference Range Interpretation Comments Lymphocytes (test code = Lymphocytes) 8.0 20.0-40.0 [place] [address]-07-26 18:34:00 Test Item Value Reference Range Interpretation Comments Monocytes (test code = Monocytes) 0.0 2.0-12.0 [place] [address]-07-26 18:34:00 Test Item Value Reference Range Interpretation Comments Neutrophils # (test code = Neutrophils 12.4 1.5-8.1 #) [place] [address]-07-26 18:34:00 Test Item Value Reference Range Interpretation Comments Lymphocytes # (test code = Lymphocytes 1.1 1.0-5.5 #) [place] [address]-07-26 18:34:00 Test Item Value Reference Range Interpretation Comments Monocytes # (test code 0.0 See_Comment [Aut omated message] The = Monocytes #) system which generated this result tra nsmitted reference range : <=0.8. The reference r hugo was not used to int erpret this result as normal/abnormal . [place] 325412-07-26 18:34:00 Test Item Value Reference Range Interpretation Comments Hypochrom (test code = 1+ (06/14/22 1:34 PM) Hypochrom) [place] 480482-07-26 18:34:00 Test Item Value Reference Range Interpretation Comments Glucose Lvl (test code = Glucose Lvl) 110 70-99 [place] 480482-07-26 18:34:00 Test Item Value Reference Range Interpretation Comments BUN (test code = BUN) 28 - [place] 480482-07-26 18:34:00 Test Item Value Reference Range Interpretation Comments Creatinine Lvl (test code = Creatinine 1.05 0.50-1.40 Lvl) [place] 480482-07-26 18:34:00 Test Item Value Reference Range Interpretation Comments Sodium Lvl (test code = Sodium Lvl) 132 135-145 [place] 480482-07-26 18:34:00 Test Item Value Reference Range Interpretation Comments Potassium Lvl (test code = Potassium 4.4 3.5-5.1 Lvl) [place] 480482-07-26 18:34:00 Test Item Value Reference Range Interpretation Comments Chloride Lvl (test code = Chloride Lvl) 96 95-109 [place] 480482-07-26 18:34:00 Test Item Value Reference Range Interpretation Comments CO2 (test code = CO2) 27 24-32 [place] 480482-07-26 18:34:00 Test Item Value Reference Range Interpretation Comments Calcium Lvl (test code = Calcium Lvl) 8.5 8.5-10.5 [place] 480482-07-26 18:34:00 Test Item Value Reference Range Interpretation Comments AGAP (test code = AGAP) 13.4 10.0-20.0 [place] 480482-07-26 18:34:00 Test Item Value Reference Range Interpretation Comments eGFR (test code = eGFR) 51 [place] 325412-07-26 18:34:00 Test Item Value Reference Range Interpretation Comments WBC (test code = WBC) 13.5 3.7-10.4 [facility] [id number] 18:34:00 Test Item Value Reference Range Interpretation Comments RBC (test code = RBC) 3.63 4.20-5.40 [place] 325412-07-26 18:34:00 Test Item Value Reference Range Interpretation Comments Hgb (test code = Hgb) 8.7 12.0-16.0 [place] 325412-07-26 18:34:00 Test Item Value Reference Range Interpretation Comments Hct (test code = Hct) 28.2 36.0-48.0 [facility] [id number] 18:34:00 Test Item Value Reference Range Interpretation Comments MCV (test code = MCV) 77.5 80.0-98.0 [place] 325412-07-26 18:34:00 Test Item Value Reference Range Interpretation Comments MCH (test code = MCH) 24.0 pg 27.0-31.0 [facility] CampusIsuthwsSGIDMVOKHB9713-01-91 18:34:00 Test Item Value Reference Range Interpretation Comments MCHC (test code = MCHC) 30.9 32.0-36.0 [facility] [id number] 18:34:00 Test Item Value Reference Range Interpretation Comments RDW (test code = RDW) 21.2 11.5-14.5 [facility] [id number] 18:34:00 Test Item Value Reference Range Interpretation Comments Platelet (test code = Platelet) 324 133-450 [facility] [id number] 18:34:00 Test Item Value Reference Range Interpretation Comments MPV (test code = MPV) 7.6 7.4-10.4 [facility] [id number] 18:34:00 Test Item Value Reference Range Interpretation Comments Plt Morph (test code = Normal (06/14/22 1:34 Plt Morph) PM) [facility] [id number] 18:34:00 Test Item Value Reference Range Interpretation Comments Segs (test code = Segs) 89.0 45.0-75.0 [place] 325412-07-26 18:34:00 Test Item Value Reference Range Interpretation Comments Bands (test code = 3.0 See_Comment [Automat ed message] The Bands) system which ge nerated this result transmit lavon reference range : <=11.0. The reference r hugo was not used to interpr et this result as dionne l/abnormal. [place] [address]-07-26 18:34:00 Test Item Value Reference Range Interpretation Comments Lymphocytes (test code = Lymphocytes) 8.0 20.0-40.0 [place] [address]-07-26 18:34:00 Test Item Value Reference Range Interpretation Comments Monocytes (test code = Monocytes) 0.0 2.0-12.0 [place] [address]-07-26 18:34:00 Test Item Value Reference Range Interpretation Comments Neutrophils # (test code = Neutrophils 12.4 1.5-8.1 #) [place] [address]-07-26 18:34:00 Test Item Value Reference Range Interpretation Comments Lymphocytes # (test code = Lymphocytes 1.1 1.0-5.5 #) [place] [address]-07-26 18:34:00 Test Item Value Reference Range Interpretation Comments Monocytes # (test code 0.0 See_Comment [Aut omated message] The = Monocytes #) system which generated this result tra nsmitted reference range : <=0.8. The reference r hugo was not used to int erpret this result as normal/abnormal . [place] 325412-07-26 18:34:00 Test Item Value Reference Range Interpretation Comments Hypochrom (test code = 1+ (06/14/22 1:34 PM) Hypochrom) [place] 480482-07-26 18:34:00 Test Item Value Reference Range Interpretation Comments Glucose Lvl (test code = Glucose Lvl) 110 70-99 [place] 480482-07-26 18:34:00 Test Item Value Reference Range Interpretation Comments BUN (test code = BUN) 28 7- [place] 480482-07-26 18:34:00 Test Item Value Reference Range Interpretation Comments Creatinine Lvl (test code = Creatinine 1.05 0.50-1.40 Lvl) [place] 480482-07-26 18:34:00 Test Item Value Reference Range Interpretation Comments Sodium Lvl (test code = Sodium Lvl) 132 135-145 [place] 480482-07-26 18:34:00 Test Item Value Reference Range Interpretation Comments Potassium Lvl (test code = Potassium 4.4 3.5-5.1 Lvl) [place] 480482-07-26 18:34:00 Test Item Value Reference Range Interpretation Comments Chloride Lvl (test code = Chloride Lvl) 96 95-109 [place] 480482-07-26 18:34:00 Test Item Value Reference Range Interpretation Comments CO2 (test code = CO2) 27 24-32 [place] [address]-07-26 18:34:00 Test Item Value Reference Range Interpretation Comments Calcium Lvl (test code = Calcium Lvl) 8.5 8.5-10.5 [place] 480482-07-26 18:34:00 Test Item Value Reference Range Interpretation Comments AGAP (test code = AGAP) 13.4 10.0-20.0 [place] 480482-07-26 18:34:00 Test Item Value Reference Range Interpretation Comments eGFR (test code = eGFR) 51 [place] 325412-07-26 18:34:00 Test Item Value Reference Range Interpretation Comments WBC (test code = WBC) 13.5 3.7-10.4 [place] [address]-07-26 18:34:00 Test Item Value Reference Range Interpretation Comments RBC (test code = RBC) 3.63 4.20-5.40 [place] [address]-07-26 18:34:00 Test Item Value Reference Range Interpretation Comments Hgb (test code = Hgb) 8.7 12.0-16.0 [place] [address]-07-26 18:34:00 Test Item Value Reference Range Interpretation Comments Hct (test code = Hct) 28.2 36.0-48.0 [place] [address]-07-26 18:34:00 Test Item Value Reference Range Interpretation Comments MCV (test code = MCV) 77.5 80.0-98.0 [place] [address]-07-26 18:34:00 Test Item Value Reference Range Interpretation Comments MCH (test code = MCH) 24.0 pg 27.0-31.0 [place] [address]-07-26 18:34:00 Test Item Value Reference Range Interpretation Comments MCHC (test code = MCHC) 30.9 32.0-36.0 [place] [address]-07-26 18:34:00 Test Item Value Reference Range Interpretation Comments RDW (test code = RDW) 21.2 11.5-14.5 [place] [address]-07-26 18:34:00 Test Item Value Reference Range Interpretation Comments Platelet (test code = Platelet) 324 133-450 [place] 325412-07-26 18:34:00 Test Item Value Reference Range Interpretation Comments MPV (test code = MPV) 7.6 7.4-10.4 [place] 325412-07-26 18:34:00 Test Item Value Reference Range Interpretation Comments Plt Morph (test code = Normal (06/14/22 1:34 Plt Morph) PM) [place] [address]-07-26 18:34:00 Test Item Value Reference Range Interpretation Comments Segs (test code = Segs) 89.0 45.0-75.0 [place] [address]-07-26 18:34:00 Test Item Value Reference Range Interpretation Comments Bands (test code = 3.0 See_Comment [Automat ed message] The Bands) system which ge nerated this result transmit lavon reference range : <=11.0. The reference r hugo was not used to interpr et this result as dionne l/abnormal. [place] 325412-07-26 18:34:00 Test Item Value Reference Range Interpretation Comments Lymphocytes (test code = Lymphocytes) 8.0 20.0-40.0 [place] [address]-07-26 18:34:00 Test Item Value Reference Range Interpretation Comments Monocytes (test code = Monocytes) 0.0 2.0-12.0 [place] [address]-07-26 18:34:00 Test Item Value Reference Range Interpretation Comments Neutrophils # (test code = Neutrophils 12.4 1.5-8.1 #) [place] [address]-07-26 18:34:00 Test Item Value Reference Range Interpretation Comments Lymphocytes # (test code = Lymphocytes 1.1 1.0-5.5 #) [place] [address]-07-26 18:34:00 Test Item Value Reference Range Interpretation Comments Monocytes # (test code 0.0 See_Comment [Aut omated message] The = Monocytes #) system which generated this result tra nsmitted reference range : <=0.8. The reference r hugo was not used to int erpret this result as normal/abnormal . [place] 325412-07-26 18:34:00 Test Item Value Reference Range Interpretation Comments Hypochrom (test code = 1+ (06/14/22 1:34 PM) Hypochrom) [place] 480482-07-26 18:34:00 Test Item Value Reference Range Interpretation Comments Glucose Lvl (test code = Glucose Lvl) 110 70-99 [place] 480482-07-26 18:34:00 Test Item Value Reference Range Interpretation Comments BUN (test code = BUN) 28 - [place] 480482-07-26 18:34:00 Test Item Value Reference Range Interpretation Comments Creatinine Lvl (test code = Creatinine 1.05 0.50-1.40 Lvl) [place] 480482-07-26 18:34:00 Test Item Value Reference Range Interpretation Comments Sodium Lvl (test code = Sodium Lvl) 132 135-145 [place] 480482-07-26 18:34:00 Test Item Value Reference Range Interpretation Comments Potassium Lvl (test code = Potassium 4.4 3.5-5.1 Lvl) [place] 480482-07-26 18:34:00 Test Item Value Reference Range Interpretation Comments Chloride Lvl (test code = Chloride Lvl) 96 95-109 [place] 480482-07-26 18:34:00 Test Item Value Reference Range Interpretation Comments CO2 (test code = CO2) 27 24-32 [place] 480482-07-26 18:34:00 Test Item Value Reference Range Interpretation Comments Calcium Lvl (test code = Calcium Lvl) 8.5 8.5-10.5 [place] 480482-07-26 18:34:00 Test Item Value Reference Range Interpretation Comments AGAP (test code = AGAP) 13.4 10.0-20.0 [place] 480482-07-26 18:34:00 Test Item Value Reference Range Interpretation Comments eGFR (test code = eGFR) 51 [place] 325412-07-26 18:34:00 Test Item Value Reference Range Interpretation Comments WBC (test code = WBC) 13.5 3.7-10.4 [facility] [id number] 18:34:00 Test Item Value Reference Range Interpretation Comments RBC (test code = RBC) 3.63 4.20-5.40 [place] 325412-07-26 18:34:00 Test Item Value Reference Range Interpretation Comments Hgb (test code = Hgb) 8.7 12.0-16.0 [place] 325412-07-26 18:34:00 Test Item Value Reference Range Interpretation Comments Hct (test code = Hct) 28.2 36.0-48.0 [facility] CampusEisjekhFYJUAPEHDJ8883-26-89 18:34:00 Test Item Value Reference Range Interpretation Comments MCV (test code = MCV) 77.5 80.0-98.0 [place] 325412-07-26 18:34:00 Test Item Value Reference Range Interpretation Comments MCH (test code = MCH) 24.0 pg 27.0-31.0 [facility] [id number] 18:34:00 Test Item Value Reference Range Interpretation Comments MCHC (test code = MCH[facility]) 30.9 32.0-36.0 [facility] [id number] 18:34:00 Test Item Value Reference Range Interpretation Comments RDW (test code = RDW) 21.2 11.5-14.5 [facility] [id number] 18:34:00 Test Item Value Reference Range Interpretation Comments Platelet (test code = Platelet) 324 133-450 [facility] [id number] 18:34:00 Test Item Value Reference Range Interpretation Comments MPV (test code = MPV) 7.6 7.4-10.4 [facility] [id number] 18:34:00 Test Item Value Reference Range Interpretation Comments Plt Morph (test code = Normal (06/14/22 1:34 Plt Morph) PM) [facility] Camp[id number] 18:34:00 Test Item Value Reference Range Interpretation Comments Segs (test code = Segs) 89.0 45.0-75.0 [place] 325412-07-26 18:34:00 Test Item Value Reference Range Interpretation Comments Bands (test code = 3.0 See_Comment [Automat ed message] The Bands) system which ge nerated this result transmit lavon reference range : <=11.0. The reference r hugo was not used to interpr et this result as dionne l/abnormal. [place] [address]-07-26 18:34:00 Test Item Value Reference Range Interpretation Comments Lymphocytes (test code = Lymphocytes) 8.0 20.0-40.0 [place] [address]-07-26 18:34:00 Test Item Value Reference Range Interpretation Comments Monocytes (test code = Monocytes) 0.0 2.0-12.0 [place] [address]-07-26 18:34:00 Test Item Value Reference Range Interpretation Comments Neutrophils # (test code = Neutrophils 12.4 1.5-8.1 #) [place] [address]-07-26 18:34:00 Test Item Value Reference Range Interpretation Comments Lymphocytes # (test code = Lymphocytes 1.1 1.0-5.5 #) [place] [address]-07-26 18:34:00 Test Item Value Reference Range Interpretation Comments Monocytes # (test code 0.0 See_Comment [Aut omated message] The = Monocytes #) system which generated this result tra nsmitted reference range : <=0.8. The reference r hugo was not used to int erpret this result as normal/abnormal . [place] 325412-07-26 18:34:00 Test Item Value Reference Range Interpretation Comments Hypochrom (test code = 1+ (06/14/22 1:34 PM) Hypochrom) [place] 480482-07-26 18:34:00 Test Item Value Reference Range Interpretation Comments Glucose Lvl (test code = Glucose Lvl) 110 70-99 [place] 480482-07-26 18:34:00 Test Item Value Reference Range Interpretation Comments BUN (test code = BUN) 28 7- [place] 480482-07-26 18:34:00 Test Item Value Reference Range Interpretation Comments Creatinine Lvl (test code = Creatinine 1.05 0.50-1.40 Lvl) [place] 480482-07-26 18:34:00 Test Item Value Reference Range Interpretation Comments Sodium Lvl (test code = Sodium Lvl) 132 135-145 [place] 480482-07-26 18:34:00 Test Item Value Reference Range Interpretation Comments Potassium Lvl (test code = Potassium 4.4 3.5-5.1 Lvl) [place] 480482-07-26 18:34:00 Test Item Value Reference Range Interpretation Comments Chloride Lvl (test code = Chloride Lvl) 96 95-109 [place] 480482-07-26 18:34:00 Test Item Value Reference Range Interpretation Comments CO2 (test code = CO2) 27 24-32 [place] [address]-07-26 18:34:00 Test Item Value Reference Range Interpretation Comments Calcium Lvl (test code = Calcium Lvl) 8.5 8.5-10.5 [place] 480482-07-26 18:34:00 Test Item Value Reference Range Interpretation Comments AGAP (test code = AGAP) 13.4 10.0-20.0 [place] 480482-07-26 18:34:00 Test Item Value Reference Range Interpretation Comments eGFR (test code = eGFR) 51 [place] 325412-07-26 18:34:00 Test Item Value Reference Range Interpretation Comments WBC (test code = WBC) 13.5 3.7-10.4 [place] [address]-07-26 18:34:00 Test Item Value Reference Range Interpretation Comments RBC (test code = RBC) 3.63 4.20-5.40 [place] [address]-07-26 18:34:00 Test Item Value Reference Range Interpretation Comments Hgb (test code = Hgb) 8.7 12.0-16.0 [place] [address]-07-26 18:34:00 Test Item Value Reference Range Interpretation Comments Hct (test code = Hct) 28.2 36.0-48.0 [place] [address]-07-26 18:34:00 Test Item Value Reference Range Interpretation Comments MCV (test code = MCV) 77.5 80.0-98.0 [place] [address]-07-26 18:34:00 Test Item Value Reference Range Interpretation Comments MCH (test code = MCH) 24.0 pg 27.0-31.0 [place] [address]-07-26 18:34:00 Test Item Value Reference Range Interpretation Comments MCHC (test code = MCHC) 30.9 32.0-36.0 [place] [address]-07-26 18:34:00 Test Item Value Reference Range Interpretation Comments RDW (test code = RDW) 21.2 11.5-14.5 [place] [address]-07-26 18:34:00 Test Item Value Reference Range Interpretation Comments Platelet (test code = Platelet) 324 133-450 [place] 325412-07-26 18:34:00 Test Item Value Reference Range Interpretation Comments MPV (test code = MPV) 7.6 7.4-10.4 [place] 325412-07-26 18:34:00 Test Item Value Reference Range Interpretation Comments Plt Morph (test code = Normal (06/14/22 1:34 Plt Morph) PM) [place] [address]-07-26 18:34:00 Test Item Value Reference Range Interpretation Comments Segs (test code = Segs) 89.0 45.0-75.0 [place] [address]-07-26 18:34:00 Test Item Value Reference Range Interpretation Comments Bands (test code = 3.0 See_Comment [Automat ed message] The Bands) system which ge nerated this result transmit lavon reference range : <=11.0. The reference r hugo was not used to interpr et this result as dionne l/abnormal. [place] 325412-07-26 18:34:00 Test Item Value Reference Range Interpretation Comments Lymphocytes (test code = Lymphocytes) 8.0 20.0-40.0 [place] [address]-07-26 18:34:00 Test Item Value Reference Range Interpretation Comments Monocytes (test code = Monocytes) 0.0 2.0-12.0 [place] [address]-07-26 18:34:00 Test Item Value Reference Range Interpretation Comments Neutrophils # (test code = Neutrophils 12.4 1.5-8.1 #) [place] [address]-07-26 18:34:00 Test Item Value Reference Range Interpretation Comments Lymphocytes # (test code = Lymphocytes 1.1 1.0-5.5 #) [place] [address]-07-26 18:34:00 Test Item Value Reference Range Interpretation Comments Monocytes # (test code 0.0 See_Comment [Aut omated message] The = Monocytes #) system which generated this result tra nsmitted reference range : <=0.8. The reference r hugo was not used to int erpret this result as normal/abnormal . [place] 325412-07-26 18:34:00 Test Item Value Reference Range Interpretation Comments Hypochrom (test code = 1+ (06/14/22 1:34 PM) Hypochrom) [place] 480482-07-26 18:34:00 Test Item Value Reference Range Interpretation Comments Glucose Lvl (test code = Glucose Lvl) 110 70-99 [place] 480482-07-26 18:34:00 Test Item Value Reference Range Interpretation Comments BUN (test code = BUN) 28 - [place] 480482-07-26 18:34:00 Test Item Value Reference Range Interpretation Comments Creatinine Lvl (test code = Creatinine 1.05 0.50-1.40 Lvl) [place] 480482-07-26 18:34:00 Test Item Value Reference Range Interpretation Comments Sodium Lvl (test code = Sodium Lvl) 132 135-145 [place] 480482-07-26 18:34:00 Test Item Value Reference Range Interpretation Comments Potassium Lvl (test code = Potassium 4.4 3.5-5.1 Lvl) [place] 480482-07-26 18:34:00 Test Item Value Reference Range Interpretation Comments Chloride Lvl (test code = Chloride Lvl) 96 95-109 [place] 480482-07-26 18:34:00 Test Item Value Reference Range Interpretation Comments CO2 (test code = CO2) 27 24-32 [place] 480482-07-26 18:34:00 Test Item Value Reference Range Interpretation Comments Calcium Lvl (test code = Calcium Lvl) 8.5 8.5-10.5 [place] 480482-07-26 18:34:00 Test Item Value Reference Range Interpretation Comments AGAP (test code = AGAP) 13.4 10.0-20.0 [place] 480482-07-26 18:34:00 Test Item Value Reference Range Interpretation Comments eGFR (test code = eGFR) 51 [place] 325412-07-26 18:34:00 Test Item Value Reference Range Interpretation Comments WBC (test code = WBC) 13.5 3.7-10.4 [facility] [id number] 18:34:00 Test Item Value Reference Range Interpretation Comments RBC (test code = RBC) 3.63 4.20-5.40 [place] 325412-07-26 18:34:00 Test Item Value Reference Range Interpretation Comments Hgb (test code = Hgb) 8.7 12.0-16.0 [place] 325412-07-26 18:34:00 Test Item Value Reference Range Interpretation Comments Hct (test code = Hct) 28.2 36.0-48.0 [facility] CampusZeuppnaVOZNDKIJZS6201-34-00 18:34:00 Test Item Value Reference Range Interpretation Comments MCV (test code = MCV) 77.5 80.0-98.0 [place] 325412-07-26 18:34:00 Test Item Value Reference Range Interpretation Comments MCH (test code = MCH) 24.0 pg 27.0-31.0 [facility] [id number] 18:34:00 Test Item Value Reference Range Interpretation Comments MCHC (test code = MCHC) 30.9 32.0-36.0 [facility] CampusNspspnuIEIYFMOPBI3266-50-05 18:34:00 Test Item Value Reference Range Interpretation Comments RDW (test code = RDW) 21.2 11.5-14.5 [facility] C[id number] 18:34:00 Test Item Value Reference Range Interpretation Comments Platelet (test code = Platelet) 324 133-450 [facility] [id number] 18:34:00 Test Item Value Reference Range Interpretation Comments MPV (test code = MPV) 7.6 7.4-10.4 [facility] CampusPfjfdwoNDOXLAUQFK0948-96-07 18:34:00 Test Item Value Reference Range Interpretation Comments Plt Morph (test code = Normal (06/14/22 1:34 Plt Morph) PM) [facility] CampusDgkqjnqFOIPRJMUCO7334-06-88 18:34:00 Test Item Value Reference Range Interpretation Comments Segs (test code = Segs) 89.0 45.0-75.0 [place] 325412-07-26 18:34:00 Test Item Value Reference Range Interpretation Comments Bands (test code = 3.0 See_Comment [Automat ed message] The Bands) system which ge nerated this result transmit lavon reference range : <=11.0. The reference r hugo was not used to interpr et this result as dionne l/abnormal. [place] [address]-07-26 18:34:00 Test Item Value Reference Range Interpretation Comments Lymphocytes (test code = Lymphocytes) 8.0 20.0-40.0 [place] [address]-07-26 18:34:00 Test Item Value Reference Range Interpretation Comments Monocytes (test code = Monocytes) 0.0 2.0-12.0 [place] [address]-07-26 18:34:00 Test Item Value Reference Range Interpretation Comments Neutrophils # (test code = Neutrophils 12.4 1.5-8.1 #) [place] [address]-07-26 18:34:00 Test Item Value Reference Range Interpretation Comments Lymphocytes # (test code = Lymphocytes 1.1 1.0-5.5 #) [place] [address]-07-26 18:34:00 Test Item Value Reference Range Interpretation Comments Monocytes # (test code 0.0 See_Comment [Aut omated message] The = Monocytes #) system which generated this result tra nsmitted reference range : <=0.8. The reference r hugo was not used to int erpret this result as normal/abnormal . [place] 325412-07-26 18:34:00 Test Item Value Reference Range Interpretation Comments Hypochrom (test code = 1+ (06/14/22 1:34 PM) Hypochrom) [place] 480482-07-26 18:34:00 Test Item Value Reference Range Interpretation Comments Glucose Lvl (test code = Glucose Lvl) 110 70-99 [place] 480482-07-26 18:34:00 Test Item Value Reference Range Interpretation Comments BUN (test code = BUN) 28 7- [place] 480482-07-26 18:34:00 Test Item Value Reference Range Interpretation Comments Creatinine Lvl (test code = Creatinine 1.05 0.50-1.40 Lvl) [place] 480482-07-26 18:34:00 Test Item Value Reference Range Interpretation Comments Sodium Lvl (test code = Sodium Lvl) 132 135-145 [place] 480482-07-26 18:34:00 Test Item Value Reference Range Interpretation Comments Potassium Lvl (test code = Potassium 4.4 3.5-5.1 Lvl) [place] 480482-07-26 18:34:00 Test Item Value Reference Range Interpretation Comments Chloride Lvl (test code = Chloride Lvl) 96 95-109 [place] 480482-07-26 18:34:00 Test Item Value Reference Range Interpretation Comments CO2 (test code = CO2) 27 24-32 [place] [address]-07-26 18:34:00 Test Item Value Reference Range Interpretation Comments Calcium Lvl (test code = Calcium Lvl) 8.5 8.5-10.5 [place] 480482-07-26 18:34:00 Test Item Value Reference Range Interpretation Comments AGAP (test code = AGAP) 13.4 10.0-20.0 [place] 480482-07-26 18:34:00 Test Item Value Reference Range Interpretation Comments eGFR (test code = eGFR) 51 [place] 325412-07-26 18:34:00 Test Item Value Reference Range Interpretation Comments WBC (test code = WBC) 13.5 3.7-10.4 [place] [address]-07-26 18:34:00 Test Item Value Reference Range Interpretation Comments RBC (test code = RBC) 3.63 4.20-5.40 [place] [address]-07-26 18:34:00 Test Item Value Reference Range Interpretation Comments Hgb (test code = Hgb) 8.7 12.0-16.0 [place] [address]-07-26 18:34:00 Test Item Value Reference Range Interpretation Comments Hct (test code = Hct) 28.2 36.0-48.0 [place] [address]-07-26 18:34:00 Test Item Value Reference Range Interpretation Comments MCV (test code = MCV) 77.5 80.0-98.0 [place] [address]-07-26 18:34:00 Test Item Value Reference Range Interpretation Comments MCH (test code = MCH) 24.0 pg 27.0-31.0 [place] [address]-07-26 18:34:00 Test Item Value Reference Range Interpretation Comments MCHC (test code = MCHC) 30.9 32.0-36.0 [place] [address]-07-26 18:34:00 Test Item Value Reference Range Interpretation Comments RDW (test code = RDW) 21.2 11.5-14.5 [place] [address]-07-26 18:34:00 Test Item Value Reference Range Interpretation Comments Platelet (test code = Platelet) 324 133-450 [place] 325412-07-26 18:34:00 Test Item Value Reference Range Interpretation Comments MPV (test code = MPV) 7.6 7.4-10.4 [place] 325412-07-26 18:34:00 Test Item Value Reference Range Interpretation Comments Plt Morph (test code = Normal (06/14/22 1:34 Plt Morph) PM) [place] [address]-07-26 18:34:00 Test Item Value Reference Range Interpretation Comments Segs (test code = Segs) 89.0 45.0-75.0 [place] [address]-07-26 18:34:00 Test Item Value Reference Range Interpretation Comments Bands (test code = 3.0 See_Comment [Automat ed message] The Bands) system which ge nerated this result transmit lavon reference range : <=11.0. The reference r hugo was not used to interpr et this result as dionne l/abnormal. [place] 325412-07-26 18:34:00 Test Item Value Reference Range Interpretation Comments Lymphocytes (test code = Lymphocytes) 8.0 20.0-40.0 [place] [address]-07-26 18:34:00 Test Item Value Reference Range Interpretation Comments Monocytes (test code = Monocytes) 0.0 2.0-12.0 [place] [address]-07-26 18:34:00 Test Item Value Reference Range Interpretation Comments Neutrophils # (test code = Neutrophils 12.4 1.5-8.1 #) [place] [address]-07-26 18:34:00 Test Item Value Reference Range Interpretation Comments Lymphocytes # (test code = Lymphocytes 1.1 1.0-5.5 #) [place] [address]-07-26 18:34:00 Test Item Value Reference Range Interpretation Comments Monocytes # (test code 0.0 See_Comment [Aut omated message] The = Monocytes #) system which generated this result tra nsmitted reference range : <=0.8. The reference r hugo was not used to int erpret this result as normal/abnormal . [place] 325412-07-26 18:34:00 Test Item Value Reference Range Interpretation Comments Hypochrom (test code = 1+ (06/14/22 1:34 PM) Hypochrom) [place] 480482-07-26 18:34:00 Test Item Value Reference Range Interpretation Comments Glucose Lvl (test code = Glucose Lvl) 110 70-99 [place] 480482-07-26 18:34:00 Test Item Value Reference Range Interpretation Comments BUN (test code = BUN) 28 - [place] 480482-07-26 18:34:00 Test Item Value Reference Range Interpretation Comments Creatinine Lvl (test code = Creatinine 1.05 0.50-1.40 Lvl) [place] 480482-07-26 18:34:00 Test Item Value Reference Range Interpretation Comments Sodium Lvl (test code = Sodium Lvl) 132 135-145 [place] 480482-07-26 18:34:00 Test Item Value Reference Range Interpretation Comments Potassium Lvl (test code = Potassium 4.4 3.5-5.1 Lvl) [place] 480482-07-26 18:34:00 Test Item Value Reference Range Interpretation Comments Chloride Lvl (test code = Chloride Lvl) 96 95-109 [place] 480482-07-26 18:34:00 Test Item Value Reference Range Interpretation Comments CO2 (test code = CO2) 27 24-32 [place] 480482-07-26 18:34:00 Test Item Value Reference Range Interpretation Comments Calcium Lvl (test code = Calcium Lvl) 8.5 8.5-10.5 [place] 480482-07-26 18:34:00 Test Item Value Reference Range Interpretation Comments AGAP (test code = AGAP) 13.4 10.0-20.0 [place] 480482-07-26 18:34:00 Test Item Value Reference Range Interpretation Comments eGFR (test code = eGFR) 51 [place] 325412-07-26 18:34:00 Test Item Value Reference Range Interpretation Comments WBC (test code = WBC) 13.5 3.7-10.4 [facility] CampusTahdbbbJZWWRPPMDQ8546-09-64 18:34:00 Test Item Value Reference Range Interpretation Comments RBC (test code = RBC) 3.63 4.20-5.40 [place] 325412-07-26 18:34:00 Test Item Value Reference Range Interpretation Comments Hgb (test code = Hgb) 8.7 12.0-16.0 [place] 325412-07-26 18:34:00 Test Item Value Reference Range Interpretation Comments Hct (test code = Hct) 28.2 36.0-48.0 [facility] CampusYnqpofuUPIHQQBYHZ1240-88-08 18:34:00 Test Item Value Reference Range Interpretation Comments MCV (test code = MCV) 77.5 80.0-98.0 [place] 325412-07-26 18:34:00 Test Item Value Reference Range Interpretation Comments MCH (test code = MCH) 24.0 pg 27.0-31.0 [facility] CampusJesveqiHSXXQFCRVB2265-87-00 18:34:00 Test Item Value Reference Range Interpretation Comments MCHC (test code = MCHC) 30.9 32.0-36.0 [facility] CampusHglgzfcMQVZABXFIQ1782-45-80 18:34:00 Test Item Value Reference Range Interpretation Comments RDW (test code = RDW) 21.2 11.5-14.5 [facility] CampusQtbeqkwQKVUZSPKSS7091-61-52 18:34:00 Test Item Value Reference Range Interpretation Comments Platelet (test code = Platelet) 324 133-450 [facility] C[id number] 18:34:00 Test Item Value Reference Range Interpretation Comments MPV (test code = MPV) 7.6 7.4-10.4 [facility] CampusZ[id number] 18:34:00 Test Item Value Reference Range Interpretation Comments Plt Morph (test code = Normal (06/14/22 1:34 Plt Morph) PM) [facility] CampusJbezhxvAWFFTNNSJT7426-26-67 18:34:00 Test Item Value Reference Range Interpretation Comments Segs (test code = Segs) 89.0 45.0-75.0 [place] 325412-07-26 18:34:00 Test Item Value Reference Range Interpretation Comments Bands (test code = 3.0 See_Comment [Automat ed message] The Bands) system which ge nerated this result transmit lavon reference range : <=11.0. The reference r hugo was not used to interpr et this result as dionne l/abnormal. [place] [address]-07-26 18:34:00 Test Item Value Reference Range Interpretation Comments Lymphocytes (test code = Lymphocytes) 8.0 20.0-40.0 [place] [address]-07-26 18:34:00 Test Item Value Reference Range Interpretation Comments Monocytes (test code = Monocytes) 0.0 2.0-12.0 [place] [address]-07-26 18:34:00 Test Item Value Reference Range Interpretation Comments Neutrophils # (test code = Neutrophils 12.4 1.5-8.1 #) [place] [address]-07-26 18:34:00 Test Item Value Reference Range Interpretation Comments Lymphocytes # (test code = Lymphocytes 1.1 1.0-5.5 #) [place] [address]-07-26 18:34:00 Test Item Value Reference Range Interpretation Comments Monocytes # (test code 0.0 See_Comment [Aut omated message] The = Monocytes #) system which generated this result tra nsmitted reference range : <=0.8. The reference r hugo was not used to int erpret this result as normal/abnormal . [place] 325412-07-26 18:34:00 Test Item Value Reference Range Interpretation Comments Hypochrom (test code = 1+ (06/14/22 1:34 PM) Hypochrom) [place] 480482-07-26 18:34:00 Test Item Value Reference Range Interpretation Comments Glucose Lvl (test code = Glucose Lvl) 110 70-99 [place] 480482-07-26 18:34:00 Test Item Value Reference Range Interpretation Comments BUN (test code = BUN) 28 7- [place] 480482-07-26 18:34:00 Test Item Value Reference Range Interpretation Comments Creatinine Lvl (test code = Creatinine 1.05 0.50-1.40 Lvl) [place] 480482-07-26 18:34:00 Test Item Value Reference Range Interpretation Comments Sodium Lvl (test code = Sodium Lvl) 132 135-145 [place] 480482-07-26 18:34:00 Test Item Value Reference Range Interpretation Comments Potassium Lvl (test code = Potassium 4.4 3.5-5.1 Lvl) [place] 480482-07-26 18:34:00 Test Item Value Reference Range Interpretation Comments Chloride Lvl (test code = Chloride Lvl) 96 95-109 [place] 480482-07-26 18:34:00 Test Item Value Reference Range Interpretation Comments CO2 (test code = CO2) 27 24-32 [place] [address]-07-26 18:34:00 Test Item Value Reference Range Interpretation Comments Calcium Lvl (test code = Calcium Lvl) 8.5 8.5-10.5 [place] 480482-07-26 18:34:00 Test Item Value Reference Range Interpretation Comments AGAP (test code = AGAP) 13.4 10.0-20.0 [place] 480482-07-26 18:34:00 Test Item Value Reference Range Interpretation Comments eGFR (test code = eGFR) 51 [place] 325412-07-26 18:34:00 Test Item Value Reference Range Interpretation Comments WBC (test code = WBC) 13.5 3.7-10.4 [place] [address]-07-26 18:34:00 Test Item Value Reference Range Interpretation Comments RBC (test code = RBC) 3.63 4.20-5.40 [place] [address]-07-26 18:34:00 Test Item Value Reference Range Interpretation Comments Hgb (test code = Hgb) 8.7 12.0-16.0 [place] [address]-07-26 18:34:00 Test Item Value Reference Range Interpretation Comments Hct (test code = Hct) 28.2 36.0-48.0 [place] [address]-07-26 18:34:00 Test Item Value Reference Range Interpretation Comments MCV (test code = MCV) 77.5 80.0-98.0 [place] [address]-07-26 18:34:00 Test Item Value Reference Range Interpretation Comments MCH (test code = MCH) 24.0 pg 27.0-31.0 [place] [address]-07-26 18:34:00 Test Item Value Reference Range Interpretation Comments MCHC (test code = MCHC) 30.9 32.0-36.0 [place] [address]-07-26 18:34:00 Test Item Value Reference Range Interpretation Comments RDW (test code = RDW) 21.2 11.5-14.5 [place] [address]-07-26 18:34:00 Test Item Value Reference Range Interpretation Comments Platelet (test code = Platelet) 324 133-450 [place] 325412-07-26 18:34:00 Test Item Value Reference Range Interpretation Comments MPV (test code = MPV) 7.6 7.4-10.4 [place] 325412-07-26 18:34:00 Test Item Value Reference Range Interpretation Comments Plt Morph (test code = Normal (06/14/22 1:34 Plt Morph) PM) [place] [address]-07-26 18:34:00 Test Item Value Reference Range Interpretation Comments Segs (test code = Segs) 89.0 45.0-75.0 [place] [address]-07-26 18:34:00 Test Item Value Reference Range Interpretation Comments Bands (test code = 3.0 See_Comment [Automat ed message] The Bands) system which ge nerated this result transmit lavon reference range : <=11.0. The reference r hugo was not used to interpr et this result as dionne l/abnormal. [place] 325412-07-26 18:34:00 Test Item Value Reference Range Interpretation Comments Lymphocytes (test code = Lymphocytes) 8.0 20.0-40.0 [place] [address]-07-26 18:34:00 Test Item Value Reference Range Interpretation Comments Monocytes (test code = Monocytes) 0.0 2.0-12.0 [place] [address]-07-26 18:34:00 Test Item Value Reference Range Interpretation Comments Neutrophils # (test code = Neutrophils 12.4 1.5-8.1 #) [place] [address]-07-26 18:34:00 Test Item Value Reference Range Interpretation Comments Lymphocytes # (test code = Lymphocytes 1.1 1.0-5.5 #) [place] [address]-07-26 18:34:00 Test Item Value Reference Range Interpretation Comments Monocytes # (test code 0.0 See_Comment [Aut omated message] The = Monocytes #) system which generated this result tra nsmitted reference range : <=0.8. The reference r hugo was not used to int erpret this result as normal/abnormal . [place] 325412-07-26 18:34:00 Test Item Value Reference Range Interpretation Comments Hypochrom (test code = 1+ (06/14/22 1:34 PM) Hypochrom) [place] 480482-07-26 18:34:00 Test Item Value Reference Range Interpretation Comments Glucose Lvl (test code = Glucose Lvl) 110 70-99 [place] 480482-07-26 18:34:00 Test Item Value Reference Range Interpretation Comments BUN (test code = BUN) 28 - [place] 480482-07-26 18:34:00 Test Item Value Reference Range Interpretation Comments Creatinine Lvl (test code = Creatinine 1.05 0.50-1.40 Lvl) [place] 480482-07-26 18:34:00 Test Item Value Reference Range Interpretation Comments Sodium Lvl (test code = Sodium Lvl) 132 135-145 [place] 480482-07-26 18:34:00 Test Item Value Reference Range Interpretation Comments Potassium Lvl (test code = Potassium 4.4 3.5-5.1 Lvl) [place] 480482-07-26 18:34:00 Test Item Value Reference Range Interpretation Comments Chloride Lvl (test code = Chloride Lvl) 96 95-109 [place] 480482-07-26 18:34:00 Test Item Value Reference Range Interpretation Comments CO2 (test code = CO2) 27 24-32 [place] 480482-07-26 18:34:00 Test Item Value Reference Range Interpretation Comments Calcium Lvl (test code = Calcium Lvl) 8.5 8.5-10.5 [place] 480482-07-26 18:34:00 Test Item Value Reference Range Interpretation Comments AGAP (test code = AGAP) 13.4 10.0-20.0 [place] 480482-07-26 18:34:00 Test Item Value Reference Range Interpretation Comments eGFR (test code = eGFR) 51 [place] 325412-07-26 18:34:00 Test Item Value Reference Range Interpretation Comments WBC (test code = WBC) 13.5 3.7-10.4 [id number] 18:34:00 Test Item Value Reference Range Interpretation Comments RBC (test code = RBC) 3.63 4.20-5.40 [place] 325412-07-26 18:34:00 Test Item Value Reference Range Interpretation Comments Hgb (test code = Hgb) 8.7 12.0-16.0 [place] 325412-07-26 18:34:00 Test Item Value Reference Range Interpretation Comments Hct (test code = Hct) 28.2 36.0-48.0 [facility] CampusTkcekpkINNEPIKRAC5070-92-30 18:34:00 Test Item Value Reference Range Interpretation Comments MCV (test code = MCV) 77.5 80.0-98.0 [place] 325412-07-26 18:34:00 Test Item Value Reference Range Interpretation Comments MCH (test code = MCH) 24.0 pg 27.0-31.0 [facility] C[id number] 18:34:00 Test Item Value Reference Range Interpretation Comments MCHC (test code = MCHC) 30.9 32.0-36.0 [facility] [id number] 18:34:00 Test Item Value Reference Range Interpretation Comments RDW (test code = RDW) 21.2 11.5-14.5 [facility] C[id number] 18:34:00 Test Item Value Reference Range Interpretation Comments Platelet (test code = Platelet) 324 133-450 [facility] [id number] 18:34:00 Test Item Value Reference Range Interpretation Comments MPV (test code = MPV) 7.6 7.4-10.4 [facility] [id number] 18:34:00 Test Item Value Reference Range Interpretation Comments Plt Morph (test code = Normal (06/14/22 1:34 Plt Morph) PM) [facility] CampusX[id number] 18:34:00 Test Item Value Reference Range Interpretation Comments Segs (test code = Segs) 89.0 45.0-75.0 [place] 325412-07-26 18:34:00 Test Item Value Reference Range Interpretation Comments Bands (test code = 3.0 See_Comment [Automat ed message] The Bands) system which ge nerated this result transmit lavon reference range : <=11.0. The reference r hugo was not used to interpr et this result as dionne l/abnormal. [place] [address]-07-26 18:34:00 Test Item Value Reference Range Interpretation Comments Lymphocytes (test code = Lymphocytes) 8.0 20.0-40.0 [place] [address]-07-26 18:34:00 Test Item Value Reference Range Interpretation Comments Monocytes (test code = Monocytes) 0.0 2.0-12.0 [place] [address]-07-26 18:34:00 Test Item Value Reference Range Interpretation Comments Neutrophils # (test code = Neutrophils 12.4 1.5-8.1 #) [place] [address]-07-26 18:34:00 Test Item Value Reference Range Interpretation Comments Lymphocytes # (test code = Lymphocytes 1.1 1.0-5.5 #) [place] [address]-07-26 18:34:00 Test Item Value Reference Range Interpretation Comments Monocytes # (test code 0.0 See_Comment [Aut omated message] The = Monocytes #) system which generated this result tra nsmitted reference range : <=0.8. The reference r hugo was not used to int erpret this result as normal/abnormal . [place] 325412-07-26 18:34:00 Test Item Value Reference Range Interpretation Comments Hypochrom (test code = 1+ (06/14/22 1:34 PM) Hypochrom) [place] 480482-07-26 18:34:00 Test Item Value Reference Range Interpretation Comments Glucose Lvl (test code = Glucose Lvl) 110 70-99 [place] 480482-07-26 18:34:00 Test Item Value Reference Range Interpretation Comments BUN (test code = BUN) 28 7- [place] 480482-07-26 18:34:00 Test Item Value Reference Range Interpretation Comments Creatinine Lvl (test code = Creatinine 1.05 0.50-1.40 Lvl) [place] 480482-07-26 18:34:00 Test Item Value Reference Range Interpretation Comments Sodium Lvl (test code = Sodium Lvl) 132 135-145 [place] 480482-07-26 18:34:00 Test Item Value Reference Range Interpretation Comments Potassium Lvl (test code = Potassium 4.4 3.5-5.1 Lvl) [place] 480482-07-26 18:34:00 Test Item Value Reference Range Interpretation Comments Chloride Lvl (test code = Chloride Lvl) 96 95-109 [place] 480482-07-26 18:34:00 Test Item Value Reference Range Interpretation Comments CO2 (test code = CO2) 27 24-32 [place] [address]-07-26 18:34:00 Test Item Value Reference Range Interpretation Comments Calcium Lvl (test code = Calcium Lvl) 8.5 8.5-10.5 [place] 480482-07-26 18:34:00 Test Item Value Reference Range Interpretation Comments AGAP (test code = AGAP) 13.4 10.0-20.0 [place] 480482-07-26 18:34:00 Test Item Value Reference Range Interpretation Comments eGFR (test code = eGFR) 51 [place] 325412-07-26 18:34:00 Test Item Value Reference Range Interpretation Comments WBC (test code = WBC) 13.5 3.7-10.4 [place] [address]-07-26 18:34:00 Test Item Value Reference Range Interpretation Comments RBC (test code = RBC) 3.63 4.20-5.40 [place] [address]-07-26 18:34:00 Test Item Value Reference Range Interpretation Comments Hgb (test code = Hgb) 8.7 12.0-16.0 [place] [address]-07-26 18:34:00 Test Item Value Reference Range Interpretation Comments Hct (test code = Hct) 28.2 36.0-48.0 [place] [address]-07-26 18:34:00 Test Item Value Reference Range Interpretation Comments MCV (test code = MCV) 77.5 80.0-98.0 [place] [address]-07-26 18:34:00 Test Item Value Reference Range Interpretation Comments MCH (test code = MCH) 24.0 pg 27.0-31.0 [place] [address]-07-26 18:34:00 Test Item Value Reference Range Interpretation Comments MCHC (test code = MCHC) 30.9 32.0-36.0 [place] [address]-07-26 18:34:00 Test Item Value Reference Range Interpretation Comments RDW (test code = RDW) 21.2 11.5-14.5 [place] [address]-07-26 18:34:00 Test Item Value Reference Range Interpretation Comments Platelet (test code = Platelet) 324 133-450 [place] 325412-07-26 18:34:00 Test Item Value Reference Range Interpretation Comments MPV (test code = MPV) 7.6 7.4-10.4 [place] 325412-07-26 18:34:00 Test Item Value Reference Range Interpretation Comments Plt Morph (test code = Normal (06/14/22 1:34 Plt Morph) PM) [place] [address]-07-26 18:34:00 Test Item Value Reference Range Interpretation Comments Segs (test code = Segs) 89.0 45.0-75.0 [place] [address]-07-26 18:34:00 Test Item Value Reference Range Interpretation Comments Bands (test code = 3.0 See_Comment [Automat ed message] The Bands) system which ge nerated this result transmit lavon reference range : <=11.0. The reference r hugo was not used to interpr et this result as dionne l/abnormal. [place] 325412-07-26 18:34:00 Test Item Value Reference Range Interpretation Comments Lymphocytes (test code = Lymphocytes) 8.0 20.0-40.0 [place] [address]-07-26 18:34:00 Test Item Value Reference Range Interpretation Comments Monocytes (test code = Monocytes) 0.0 2.0-12.0 [place] [address]-07-26 18:34:00 Test Item Value Reference Range Interpretation Comments Neutrophils # (test code = Neutrophils 12.4 1.5-8.1 #) [place] [address]-07-26 18:34:00 Test Item Value Reference Range Interpretation Comments Lymphocytes # (test code = Lymphocytes 1.1 1.0-5.5 #) [place] [address]-07-26 18:34:00 Test Item Value Reference Range Interpretation Comments Monocytes # (test code 0.0 See_Comment [Aut omated message] The = Monocytes #) system which generated this result tra nsmitted reference range : <=0.8. The reference r hugo was not used to int erpret this result as normal/abnormal . [place] 325412-07-26 18:34:00 Test Item Value Reference Range Interpretation Comments Hypochrom (test code = 1+ (06/14/22 1:34 PM) Hypochrom) [place] 480482-07-26 18:34:00 Test Item Value Reference Range Interpretation Comments Glucose Lvl (test code = Glucose Lvl) 110 70-99 [place] 480482-07-26 18:34:00 Test Item Value Reference Range Interpretation Comments BUN (test code = BUN) 28 - [place] 480482-07-26 18:34:00 Test Item Value Reference Range Interpretation Comments Creatinine Lvl (test code = Creatinine 1.05 0.50-1.40 Lvl) [place] 480482-07-26 18:34:00 Test Item Value Reference Range Interpretation Comments Sodium Lvl (test code = Sodium Lvl) 132 135-145 [place] 480482-07-26 18:34:00 Test Item Value Reference Range Interpretation Comments Potassium Lvl (test code = Potassium 4.4 3.5-5.1 Lvl) [place] 480482-07-26 18:34:00 Test Item Value Reference Range Interpretation Comments Chloride Lvl (test code = Chloride Lvl) 96 95-109 [place] 480482-07-26 18:34:00 Test Item Value Reference Range Interpretation Comments CO2 (test code = CO2) 27 24-32 [place] 480482-07-26 18:34:00 Test Item Value Reference Range Interpretation Comments Calcium Lvl (test code = Calcium Lvl) 8.5 8.5-10.5 [place] 480482-07-26 18:34:00 Test Item Value Reference Range Interpretation Comments AGAP (test code = AGAP) 13.4 10.0-20.0 [place] 480482-07-26 18:34:00 Test Item Value Reference Range Interpretation Comments eGFR (test code = eGFR) 51 [place] 325412-07-26 18:34:00 Test Item Value Reference Range Interpretation Comments WBC (test code = WBC) 13.5 3.7-10.4 [facility] CampusOicgltpEKJUSVDRQG4070-00-02 18:34:00 Test Item Value Reference Range Interpretation Comments RBC (test code = RBC) 3.63 4.20-5.40 [place] 325412-07-26 18:34:00 Test Item Value Reference Range Interpretation Comments Hgb (test code = Hgb) 8.7 12.0-16.0 [place] 325412-07-26 18:34:00 Test Item Value Reference Range Interpretation Comments Hct (test code = Hct) 28.2 36.0-48.0 [facility] CampusRtszbimPHQBTTCGWC8263-03-29 18:34:00 Test Item Value Reference Range Interpretation Comments MCV (test code = MCV) 77.5 80.0-98.0 [place] 325412-07-26 18:34:00 Test Item Value Reference Range Interpretation Comments MCH (test code = MCH) 24.0 pg 27.0-31.0 [id number] 18:34:00 Test Item Value Reference Range Interpretation Comments MCHC (test code = MCHC) 30.9 32.0-36.0 [facility] CampusJjvfxyfXWCGTRZNEK0606-25-29 18:34:00 Test Item Value Reference Range Interpretation Comments RDW (test code = RDW) 21.2 11.5-14.5 [facility] CampusWbeyherILBISCRNMD0135-38-87 18:34:00 Test Item Value Reference Range Interpretation Comments Platelet (test code = Platelet) 324 133-450 [facility] CampusVmgbldyTKCJLJHSOW3346-79-59 18:34:00 Test Item Value Reference Range Interpretation Comments MPV (test code = MPV) 7.6 7.4-10.4 [facility] CampusUczlqqwWUKXJLSVYE6654-68-35 18:34:00 Test Item Value Reference Range Interpretation Comments Plt Morph (test code = Normal (06/14/22 1:34 Plt Morph) PM) [facility] CampusDfywfyeVIBWFOYWOJ3714-84-27 18:34:00 Test Item Value Reference Range Interpretation Comments Segs (test code = Segs) 89.0 45.0-75.0 [place] 325412-07-26 18:34:00 Test Item Value Reference Range Interpretation Comments Bands (test code = 3.0 See_Comment [Automat ed message] The Bands) system which ge nerated this result transmit lavon reference range : <=11.0. The reference r hugo was not used to interpr et this result as dionne l/abnormal. [place] [address]-07-26 18:34:00 Test Item Value Reference Range Interpretation Comments Lymphocytes (test code = Lymphocytes) 8.0 20.0-40.0 [place] [address]-07-26 18:34:00 Test Item Value Reference Range Interpretation Comments Monocytes (test code = Monocytes) 0.0 2.0-12.0 [place] [address]-07-26 18:34:00 Test Item Value Reference Range Interpretation Comments Neutrophils # (test code = Neutrophils 12.4 1.5-8.1 #) [place] [address]-07-26 18:34:00 Test Item Value Reference Range Interpretation Comments Lymphocytes # (test code = Lymphocytes 1.1 1.0-5.5 #) [place] [address]-07-26 18:34:00 Test Item Value Reference Range Interpretation Comments Monocytes # (test code 0.0 See_Comment [Aut omated message] The = Monocytes #) system which generated this result tra nsmitted reference range : <=0.8. The reference r hugo was not used to int erpret this result as normal/abnormal . [place] 325412-07-26 18:34:00 Test Item Value Reference Range Interpretation Comments Hypochrom (test code = 1+ (06/14/22 1:34 PM) Hypochrom) [place] 480482-07-26 18:34:00 Test Item Value Reference Range Interpretation Comments Glucose Lvl (test code = Glucose Lvl) 110 70-99 [place] 480482-07-26 18:34:00 Test Item Value Reference Range Interpretation Comments BUN (test code = BUN) 28 7- [place] 480482-07-26 18:34:00 Test Item Value Reference Range Interpretation Comments Creatinine Lvl (test code = Creatinine 1.05 0.50-1.40 Lvl) [place] 480482-07-26 18:34:00 Test Item Value Reference Range Interpretation Comments Sodium Lvl (test code = Sodium Lvl) 132 135-145 [place] 480482-07-26 18:34:00 Test Item Value Reference Range Interpretation Comments Potassium Lvl (test code = Potassium 4.4 3.5-5.1 Lvl) [place] 480482-07-26 18:34:00 Test Item Value Reference Range Interpretation Comments Chloride Lvl (test code = Chloride Lvl) 96 95-109 [place] 480482-07-26 18:34:00 Test Item Value Reference Range Interpretation Comments CO2 (test code = CO2) 27 24-32 [place] [address]-07-26 18:34:00 Test Item Value Reference Range Interpretation Comments Calcium Lvl (test code = Calcium Lvl) 8.5 8.5-10.5 [place] 480482-07-26 18:34:00 Test Item Value Reference Range Interpretation Comments AGAP (test code = AGAP) 13.4 10.0-20.0 [place] 480482-07-26 18:34:00 Test Item Value Reference Range Interpretation Comments eGFR (test code = eGFR) 51 [place] 325412-07-26 18:34:00 Test Item Value Reference Range Interpretation Comments WBC (test code = WBC) 13.5 3.7-10.4 [place] [address]-07-26 18:34:00 Test Item Value Reference Range Interpretation Comments RBC (test code = RBC) 3.63 4.20-5.40 [place] [address]-07-26 18:34:00 Test Item Value Reference Range Interpretation Comments Hgb (test code = Hgb) 8.7 12.0-16.0 [place] [address]-07-26 18:34:00 Test Item Value Reference Range Interpretation Comments Hct (test code = Hct) 28.2 36.0-48.0 [place] [address]-07-26 18:34:00 Test Item Value Reference Range Interpretation Comments MCV (test code = MCV) 77.5 80.0-98.0 [place] [address]-07-26 18:34:00 Test Item Value Reference Range Interpretation Comments MCH (test code = MCH) 24.0 pg 27.0-31.0 [place] [address]-07-26 18:34:00 Test Item Value Reference Range Interpretation Comments MCHC (test code = MCHC) 30.9 32.0-36.0 [place] [address]-07-26 18:34:00 Test Item Value Reference Range Interpretation Comments RDW (test code = RDW) 21.2 11.5-14.5 [place] [address]-07-26 18:34:00 Test Item Value Reference Range Interpretation Comments Platelet (test code = Platelet) 324 133-450 [place] 325412-07-26 18:34:00 Test Item Value Reference Range Interpretation Comments MPV (test code = MPV) 7.6 7.4-10.4 [place] 325412-07-26 18:34:00 Test Item Value Reference Range Interpretation Comments Plt Morph (test code = Normal (06/14/22 1:34 Plt Morph) PM) [place] [address]-07-26 18:34:00 Test Item Value Reference Range Interpretation Comments Segs (test code = Segs) 89.0 45.0-75.0 [place] [address]-07-26 18:34:00 Test Item Value Reference Range Interpretation Comments Bands (test code = 3.0 See_Comment [Automat ed message] The Bands) system which ge nerated this result transmit lavon reference range : <=11.0. The reference r hugo was not used to interpr et this result as dionne l/abnormal. [place] 325412-07-26 18:34:00 Test Item Value Reference Range Interpretation Comments Lymphocytes (test code = Lymphocytes) 8.0 20.0-40.0 [place] [address]-07-26 18:34:00 Test Item Value Reference Range Interpretation Comments Monocytes (test code = Monocytes) 0.0 2.0-12.0 [place] [address]-07-26 18:34:00 Test Item Value Reference Range Interpretation Comments Neutrophils # (test code = Neutrophils 12.4 1.5-8.1 #) [place] [address]-07-26 18:34:00 Test Item Value Reference Range Interpretation Comments Lymphocytes # (test code = Lymphocytes 1.1 1.0-5.5 #) [place] [address]-07-26 18:34:00 Test Item Value Reference Range Interpretation Comments Monocytes # (test code 0.0 See_Comment [Aut omated message] The = Monocytes #) system which generated this result tra nsmitted reference range : <=0.8. The reference r hugo was not used to int erpret this result as normal/abnormal . [place] 325412-07-26 18:34:00 Test Item Value Reference Range Interpretation Comments Hypochrom (test code = 1+ (06/14/22 1:34 PM) Hypochrom) [place] 480482-07-26 18:34:00 Test Item Value Reference Range Interpretation Comments Glucose Lvl (test code = Glucose Lvl) 110 70-99 [place] 480482-07-26 18:34:00 Test Item Value Reference Range Interpretation Comments BUN (test code = BUN) 28 - [place] 480482-07-26 18:34:00 Test Item Value Reference Range Interpretation Comments Creatinine Lvl (test code = Creatinine 1.05 0.50-1.40 Lvl) [place] 480482-07-26 18:34:00 Test Item Value Reference Range Interpretation Comments Sodium Lvl (test code = Sodium Lvl) 132 135-145 [place] 480482-07-26 18:34:00 Test Item Value Reference Range Interpretation Comments Potassium Lvl (test code = Potassium 4.4 3.5-5.1 Lvl) [place] 480482-07-26 18:34:00 Test Item Value Reference Range Interpretation Comments Chloride Lvl (test code = Chloride Lvl) 96 95-109 [place] 480482-07-26 18:34:00 Test Item Value Reference Range Interpretation Comments CO2 (test code = CO2) 27 24-32 [place] 480482-07-26 18:34:00 Test Item Value Reference Range Interpretation Comments Calcium Lvl (test code = Calcium Lvl) 8.5 8.5-10.5 [place] 480482-07-26 18:34:00 Test Item Value Reference Range Interpretation Comments AGAP (test code = AGAP) 13.4 10.0-20.0 [place] 480482-07-26 18:34:00 Test Item Value Reference Range Interpretation Comments eGFR (test code = eGFR) 51 [place] 325412-07-26 18:34:00 Test Item Value Reference Range Interpretation Comments WBC (test code = WBC) 13.5 3.7-10.4 [facility] [id number] 18:34:00 Test Item Value Reference Range Interpretation Comments RBC (test code = RBC) 3.63 4.20-5.40 [place] 325412-07-26 18:34:00 Test Item Value Reference Range Interpretation Comments Hgb (test code = Hgb) 8.7 12.0-16.0 [place] 325412-07-26 18:34:00 Test Item Value Reference Range Interpretation Comments Hct (test code = Hct) 28.2 36.0-48.0 [facility] CampusExswfrdLSFBTHGWJV8106-22-24 18:34:00 Test Item Value Reference Range Interpretation Comments MCV (test code = MCV) 77.5 80.0-98.0 [place] 325412-07-26 18:34:00 Test Item Value Reference Range Interpretation Comments MCH (test code = MCH) 24.0 pg 27.0-31.0 [facility] CampusNiawzuoCPZDXEQYLR5072-12-46 18:34:00 Test Item Value Reference Range Interpretation Comments MCHC (test code = MCHC) 30.9 32.0-36.0 [facility] CampusVolhstkYVNTEMQESX7666-10-99 18:34:00 Test Item Value Reference Range Interpretation Comments RDW (test code = RDW) 21.2 11.5-14.5 [facility] CampusKfjgmlqAZIJRNFSVZ5367-16-31 18:34:00 Test Item Value Reference Range Interpretation Comments Platelet (test code = Platelet) 324 133-450 [facility] CampusQjokfleADUCUEHQVV2754-21-32 18:34:00 Test Item Value Reference Range Interpretation Comments MPV (test code = MPV) 7.6 7.4-10.4 [facility] CampusBfegnsoYACNYOXFNA7516-40-51 18:34:00 Test Item Value Reference Range Interpretation Comments Plt Morph (test code = Normal (06/14/22 1:34 Plt Morph) PM) [facility] CampusDzqrmjfNFTOXVEPMJ7458-65-72 18:34:00 Test Item Value Reference Range Interpretation Comments Segs (test code = Segs) 89.0 45.0-75.0 [place] 325412-07-26 18:34:00 Test Item Value Reference Range Interpretation Comments Bands (test code = 3.0 See_Comment [Automat ed message] The Bands) system which ge nerated this result transmit lavon reference range : <=11.0. The reference r hugo was not used to interpr et this result as dionne l/abnormal. [place] [address]-07-26 18:34:00 Test Item Value Reference Range Interpretation Comments Lymphocytes (test code = Lymphocytes) 8.0 20.0-40.0 [place] [address]-07-26 18:34:00 Test Item Value Reference Range Interpretation Comments Monocytes (test code = Monocytes) 0.0 2.0-12.0 [place] [address]-07-26 18:34:00 Test Item Value Reference Range Interpretation Comments Neutrophils # (test code = Neutrophils 12.4 1.5-8.1 #) [place] [address]-07-26 18:34:00 Test Item Value Reference Range Interpretation Comments Lymphocytes # (test code = Lymphocytes 1.1 1.0-5.5 #) [place] [address]-07-26 18:34:00 Test Item Value Reference Range Interpretation Comments Monocytes # (test code 0.0 See_Comment [Aut omated message] The = Monocytes #) system which generated this result tra nsmitted reference range : <=0.8. The reference r hugo was not used to int erpret this result as normal/abnormal . [place] 325412-07-26 18:34:00 Test Item Value Reference Range Interpretation Comments Hypochrom (test code = 1+ (06/14/22 1:34 PM) Hypochrom) [place] 480482-07-26 18:34:00 Test Item Value Reference Range Interpretation Comments Glucose Lvl (test code = Glucose Lvl) 110 70-99 [place] 480482-07-26 18:34:00 Test Item Value Reference Range Interpretation Comments BUN (test code = BUN) 28 7- [place] 480482-07-26 18:34:00 Test Item Value Reference Range Interpretation Comments Creatinine Lvl (test code = Creatinine 1.05 0.50-1.40 Lvl) [place] 480482-07-26 18:34:00 Test Item Value Reference Range Interpretation Comments Sodium Lvl (test code = Sodium Lvl) 132 135-145 [place] 480482-07-26 18:34:00 Test Item Value Reference Range Interpretation Comments Potassium Lvl (test code = Potassium 4.4 3.5-5.1 Lvl) [place] 480482-07-26 18:34:00 Test Item Value Reference Range Interpretation Comments Chloride Lvl (test code = Chloride Lvl) 96 95-109 [place] 480482-07-26 18:34:00 Test Item Value Reference Range Interpretation Comments CO2 (test code = CO2) 27 24-32 [place] [address]-07-26 18:34:00 Test Item Value Reference Range Interpretation Comments Calcium Lvl (test code = Calcium Lvl) 8.5 8.5-10.5 [place] 480482-07-26 18:34:00 Test Item Value Reference Range Interpretation Comments AGAP (test code = AGAP) 13.4 10.0-20.0 [place] 480482-07-26 18:34:00 Test Item Value Reference Range Interpretation Comments eGFR (test code = eGFR) 51 [place] 325412-07-26 18:34:00 Test Item Value Reference Range Interpretation Comments WBC (test code = WBC) 13.5 3.7-10.4 [place] [address]-07-26 18:34:00 Test Item Value Reference Range Interpretation Comments RBC (test code = RBC) 3.63 4.20-5.40 [place] [address]-07-26 18:34:00 Test Item Value Reference Range Interpretation Comments Hgb (test code = Hgb) 8.7 12.0-16.0 [place] [address]-07-26 18:34:00 Test Item Value Reference Range Interpretation Comments Hct (test code = Hct) 28.2 36.0-48.0 [place] [address]-07-26 18:34:00 Test Item Value Reference Range Interpretation Comments MCV (test code = MCV) 77.5 80.0-98.0 [place] [address]-07-26 18:34:00 Test Item Value Reference Range Interpretation Comments MCH (test code = MCH) 24.0 pg 27.0-31.0 [place] [address]-07-26 18:34:00 Test Item Value Reference Range Interpretation Comments MCHC (test code = MCHC) 30.9 32.0-36.0 [place] [address]-07-26 18:34:00 Test Item Value Reference Range Interpretation Comments RDW (test code = RDW) 21.2 11.5-14.5 [place] [address]-07-26 18:34:00 Test Item Value Reference Range Interpretation Comments Platelet (test code = Platelet) 324 133-450 [place] 325412-07-26 18:34:00 Test Item Value Reference Range Interpretation Comments MPV (test code = MPV) 7.6 7.4-10.4 [place] 325412-07-26 18:34:00 Test Item Value Reference Range Interpretation Comments Plt Morph (test code = Normal (06/14/22 1:34 Plt Morph) PM) [place] [address]-07-26 18:34:00 Test Item Value Reference Range Interpretation Comments Segs (test code = Segs) 89.0 45.0-75.0 [place] [address]-07-26 18:34:00 Test Item Value Reference Range Interpretation Comments Bands (test code = 3.0 See_Comment [Automat ed message] The Bands) system which ge nerated this result transmit lavon reference range : <=11.0. The reference r hugo was not used to interpr et this result as dionne l/abnormal. [place] 325412-07-26 18:34:00 Test Item Value Reference Range Interpretation Comments Lymphocytes (test code = Lymphocytes) 8.0 20.0-40.0 [place] [address]-07-26 18:34:00 Test Item Value Reference Range Interpretation Comments Monocytes (test code = Monocytes) 0.0 2.0-12.0 [place] [address]-07-26 18:34:00 Test Item Value Reference Range Interpretation Comments Neutrophils # (test code = Neutrophils 12.4 1.5-8.1 #) [place] [address]-07-26 18:34:00 Test Item Value Reference Range Interpretation Comments Lymphocytes # (test code = Lymphocytes 1.1 1.0-5.5 #) [place] [address]-07-26 18:34:00 Test Item Value Reference Range Interpretation Comments Monocytes # (test code 0.0 See_Comment [Aut omated message] The = Monocytes #) system which generated this result tra nsmitted reference range : <=0.8. The reference r hugo was not used to int erpret this result as normal/abnormal . [place] 325412-07-26 18:34:00 Test Item Value Reference Range Interpretation Comments Hypochrom (test code = 1+ (06/14/22 1:34 PM) Hypochrom) [place] 480482-07-26 18:34:00 Test Item Value Reference Range Interpretation Comments Glucose Lvl (test code = Glucose Lvl) 110 70-99 [place] 480482-07-26 18:34:00 Test Item Value Reference Range Interpretation Comments BUN (test code = BUN) 28 - [place] 480482-07-26 18:34:00 Test Item Value Reference Range Interpretation Comments Creatinine Lvl (test code = Creatinine 1.05 0.50-1.40 Lvl) [place] 480482-07-26 18:34:00 Test Item Value Reference Range Interpretation Comments Sodium Lvl (test code = Sodium Lvl) 132 135-145 [place] 480482-07-26 18:34:00 Test Item Value Reference Range Interpretation Comments Potassium Lvl (test code = Potassium 4.4 3.5-5.1 Lvl) [place] 480482-07-26 18:34:00 Test Item Value Reference Range Interpretation Comments Chloride Lvl (test code = Chloride Lvl) 96 95-109 [place] 480482-07-26 18:34:00 Test Item Value Reference Range Interpretation Comments CO2 (test code = CO2) 27 24-32 [place] 480482-07-26 18:34:00 Test Item Value Reference Range Interpretation Comments Calcium Lvl (test code = Calcium Lvl) 8.5 8.5-10.5 [place] 480482-07-26 18:34:00 Test Item Value Reference Range Interpretation Comments AGAP (test code = AGAP) 13.4 10.0-20.0 [place] 480482-07-26 18:34:00 Test Item Value Reference Range Interpretation Comments eGFR (test code = eGFR) 51 [place] 325412-07-26 18:34:00 Test Item Value Reference Range Interpretation Comments WBC (test code = WBC) 13.5 3.7-10.4 [facility] [id number] 18:34:00 Test Item Value Reference Range Interpretation Comments RBC (test code = RBC) 3.63 4.20-5.40 [place] 325412-07-26 18:34:00 Test Item Value Reference Range Interpretation Comments Hgb (test code = Hgb) 8.7 12.0-16.0 [place] 325412-07-26 18:34:00 Test Item Value Reference Range Interpretation Comments Hct (test code = Hct) 28.2 36.0-48.0 [facility] [id number] 18:34:00 Test Item Value Reference Range Interpretation Comments MCV (test code = MCV) 77.5 80.0-98.0 [place] 325412-07-26 18:34:00 Test Item Value Reference Range Interpretation Comments MCH (test code = MCH) 24.0 pg 27.0-31.0 [facility] [id number] 18:34:00 Test Item Value Reference Range Interpretation Comments MCHC (test code = MCHC) 30.9 32.0-36.0 [facility] [id number] 18:34:00 Test Item Value Reference Range Interpretation Comments RDW (test code = RDW) 21.2 11.5-14.5 [facility] CampusFgrkqdmPYWFRBEXJT1124-09-08 18:34:00 Test Item Value Reference Range Interpretation Comments Platelet (test code = Platelet) 324 133-450 [facility] [id number] 18:34:00 Test Item Value Reference Range Interpretation Comments MPV (test code = MPV) 7.6 7.4-10.4 [facility] Camp[id number] 18:34:00 Test Item Value Reference Range Interpretation Comments Plt Morph (test code = Normal (06/14/22 1:34 Plt Morph) PM) [facility] C[id number] 18:34:00 Test Item Value Reference Range Interpretation Comments Segs (test code = Segs) 89.0 45.0-75.0 [place] 325412-07-26 18:34:00 Test Item Value Reference Range Interpretation Comments Bands (test code = 3.0 See_Comment [Automat ed message] The Bands) system which ge nerated this result transmit lavon reference range : <=11.0. The reference r hugo was not used to interpr et this result as dionne l/abnormal. [place] [address]-07-26 18:34:00 Test Item Value Reference Range Interpretation Comments Lymphocytes (test code = Lymphocytes) 8.0 20.0-40.0 [place] [address]-07-26 18:34:00 Test Item Value Reference Range Interpretation Comments Monocytes (test code = Monocytes) 0.0 2.0-12.0 [place] [address]-07-26 18:34:00 Test Item Value Reference Range Interpretation Comments Neutrophils # (test code = Neutrophils 12.4 1.5-8.1 #) [place] [address]-07-26 18:34:00 Test Item Value Reference Range Interpretation Comments Lymphocytes # (test code = Lymphocytes 1.1 1.0-5.5 #) [place] [address]-07-26 18:34:00 Test Item Value Reference Range Interpretation Comments Monocytes # (test code 0.0 See_Comment [Aut omated message] The = Monocytes #) system which generated this result tra nsmitted reference range : <=0.8. The reference r hugo was not used to int erpret this result as normal/abnormal . [place] 325412-07-26 18:34:00 Test Item Value Reference Range Interpretation Comments Hypochrom (test code = 1+ (06/14/22 1:34 PM) Hypochrom) [place] 480482-07-26 18:34:00 Test Item Value Reference Range Interpretation Comments Glucose Lvl (test code = Glucose Lvl) 110 70-99 [place] 480482-07-26 18:34:00 Test Item Value Reference Range Interpretation Comments BUN (test code = BUN) 28 7- [place] 480482-07-26 18:34:00 Test Item Value Reference Range Interpretation Comments Creatinine Lvl (test code = Creatinine 1.05 0.50-1.40 Lvl) [place] 480482-07-26 18:34:00 Test Item Value Reference Range Interpretation Comments Sodium Lvl (test code = Sodium Lvl) 132 135-145 [place] 480482-07-26 18:34:00 Test Item Value Reference Range Interpretation Comments Potassium Lvl (test code = Potassium 4.4 3.5-5.1 Lvl) [place] 480482-07-26 18:34:00 Test Item Value Reference Range Interpretation Comments Chloride Lvl (test code = Chloride Lvl) 96 95-109 [place] 480482-07-26 18:34:00 Test Item Value Reference Range Interpretation Comments CO2 (test code = CO2) 27 24-32 [place] [address]-07-26 18:34:00 Test Item Value Reference Range Interpretation Comments Calcium Lvl (test code = Calcium Lvl) 8.5 8.5-10.5 [place] 480482-07-26 18:34:00 Test Item Value Reference Range Interpretation Comments AGAP (test code = AGAP) 13.4 10.0-20.0 [place] 480482-07-26 18:34:00 Test Item Value Reference Range Interpretation Comments eGFR (test code = eGFR) 51 [place] 325412-07-26 18:34:00 Test Item Value Reference Range Interpretation Comments WBC (test code = WBC) 13.5 3.7-10.4 [place] [address]-07-26 18:34:00 Test Item Value Reference Range Interpretation Comments RBC (test code = RBC) 3.63 4.20-5.40 [place] [address]-07-26 18:34:00 Test Item Value Reference Range Interpretation Comments Hgb (test code = Hgb) 8.7 12.0-16.0 [place] [address]-07-26 18:34:00 Test Item Value Reference Range Interpretation Comments Hct (test code = Hct) 28.2 36.0-48.0 [place] [address]-07-26 18:34:00 Test Item Value Reference Range Interpretation Comments MCV (test code = MCV) 77.5 80.0-98.0 [place] [address]-07-26 18:34:00 Test Item Value Reference Range Interpretation Comments MCH (test code = MCH) 24.0 pg 27.0-31.0 [place] [address]-07-26 18:34:00 Test Item Value Reference Range Interpretation Comments MCHC (test code = MCHC) 30.9 32.0-36.0 [place] [address]-07-26 18:34:00 Test Item Value Reference Range Interpretation Comments RDW (test code = RDW) 21.2 11.5-14.5 [place] [address]-07-26 18:34:00 Test Item Value Reference Range Interpretation Comments Platelet (test code = Platelet) 324 133-450 [place] 325412-07-26 18:34:00 Test Item Value Reference Range Interpretation Comments MPV (test code = MPV) 7.6 7.4-10.4 [place] 325412-07-26 18:34:00 Test Item Value Reference Range Interpretation Comments Plt Morph (test code = Normal (06/14/22 1:34 Plt Morph) PM) [place] [address]-07-26 18:34:00 Test Item Value Reference Range Interpretation Comments Segs (test code = Segs) 89.0 45.0-75.0 [place] [address]-07-26 18:34:00 Test Item Value Reference Range Interpretation Comments Bands (test code = 3.0 See_Comment [Automat ed message] The Bands) system which ge nerated this result transmit lavon reference range : <=11.0. The reference r hugo was not used to interpr et this result as dionne l/abnormal. [place] 325412-07-26 18:34:00 Test Item Value Reference Range Interpretation Comments Lymphocytes (test code = Lymphocytes) 8.0 20.0-40.0 [place] [address]-07-26 18:34:00 Test Item Value Reference Range Interpretation Comments Monocytes (test code = Monocytes) 0.0 2.0-12.0 [place] [address]-07-26 18:34:00 Test Item Value Reference Range Interpretation Comments Neutrophils # (test code = Neutrophils 12.4 1.5-8.1 #) [place] [address]-07-26 18:34:00 Test Item Value Reference Range Interpretation Comments Lymphocytes # (test code = Lymphocytes 1.1 1.0-5.5 #) [place] [address]-07-26 18:34:00 Test Item Value Reference Range Interpretation Comments Monocytes # (test code 0.0 See_Comment [Aut omated message] The = Monocytes #) system which generated this result tra nsmitted reference range : <=0.8. The reference r hugo was not used to int erpret this result as normal/abnormal . [place] 325412-07-26 18:34:00 Test Item Value Reference Range Interpretation Comments Hypochrom (test code = 1+ (06/14/22 1:34 PM) Hypochrom) [place] 480482-07-26 18:34:00 Test Item Value Reference Range Interpretation Comments Glucose Lvl (test code = Glucose Lvl) 110 70-99 [place] 480482-07-26 18:34:00 Test Item Value Reference Range Interpretation Comments BUN (test code = BUN) 28 - [place] 480482-07-26 18:34:00 Test Item Value Reference Range Interpretation Comments Creatinine Lvl (test code = Creatinine 1.05 0.50-1.40 Lvl) [place] 480482-07-26 18:34:00 Test Item Value Reference Range Interpretation Comments Sodium Lvl (test code = Sodium Lvl) 132 135-145 [place] 480482-07-26 18:34:00 Test Item Value Reference Range Interpretation Comments Potassium Lvl (test code = Potassium 4.4 3.5-5.1 Lvl) [place] 480482-07-26 18:34:00 Test Item Value Reference Range Interpretation Comments Chloride Lvl (test code = Chloride Lvl) 96 95-109 [place] 480482-07-26 18:34:00 Test Item Value Reference Range Interpretation Comments CO2 (test code = CO2) 27 24-32 [place] 480482-07-26 18:34:00 Test Item Value Reference Range Interpretation Comments Calcium Lvl (test code = Calcium Lvl) 8.5 8.5-10.5 [place] 480482-07-26 18:34:00 Test Item Value Reference Range Interpretation Comments AGAP (test code = AGAP) 13.4 10.0-20.0 [place] 480482-07-26 18:34:00 Test Item Value Reference Range Interpretation Comments eGFR (test code = eGFR) 51 [place] 325412-07-26 18:34:00 Test Item Value Reference Range Interpretation Comments WBC (test code = WBC) 13.5 3.7-10.4 [facility] [id number] 18:34:00 Test Item Value Reference Range Interpretation Comments RBC (test code = RBC) 3.63 4.20-5.40 [place] 325412-07-26 18:34:00 Test Item Value Reference Range Interpretation Comments Hgb (test code = Hgb) 8.7 12.0-16.0 [place] 325412-07-26 18:34:00 Test Item Value Reference Range Interpretation Comments Hct (test code = Hct) 28.2 36.0-48.0 [facility] C[id number] 18:34:00 Test Item Value Reference Range Interpretation Comments MCV (test code = MCV) 77.5 80.0-98.0 [place] 325412-07-26 18:34:00 Test Item Value Reference Range Interpretation Comments MCH (test code = MCH) 24.0 pg 27.0-31.0 [facility] CampusMegurvsZLCGNCJBYK2702-02-80 18:34:00 Test Item Value Reference Range Interpretation Comments MCHC (test code = MCHC) 30.9 32.0-36.0 [facility] [id number] 18:34:00 Test Item Value Reference Range Interpretation Comments RDW (test code = RDW) 21.2 11.5-14.5 [facility] CampusNolurhgUEHTGRZNXS5523-20-36 18:34:00 Test Item Value Reference Range Interpretation Comments Platelet (test code = Platelet) 324 133-450 [facility] C[id number] 18:34:00 Test Item Value Reference Range Interpretation Comments MPV (test code = MPV) 7.6 7.4-10.4 [facility] C[id number] 18:34:00 Test Item Value Reference Range Interpretation Comments Plt Morph (test code = Normal (06/14/22 1:34 Plt Morph) PM) [facility] [id number] 18:34:00 Test Item Value Reference Range Interpretation Comments Segs (test code = Segs) 89.0 45.0-75.0 [place] 325412-07-26 18:34:00 Test Item Value Reference Range Interpretation Comments Bands (test code = 3.0 See_Comment [Automat ed message] The Bands) system which ge nerated this result transmit lavon reference range : <=11.0. The reference r hugo was not used to interpr et this result as dionne l/abnormal. [place] [address]-07-26 18:34:00 Test Item Value Reference Range Interpretation Comments Lymphocytes (test code = Lymphocytes) 8.0 20.0-40.0 [place] [address]-07-26 18:34:00 Test Item Value Reference Range Interpretation Comments Monocytes (test code = Monocytes) 0.0 2.0-12.0 [place] [address]-07-26 18:34:00 Test Item Value Reference Range Interpretation Comments Neutrophils # (test code = Neutrophils 12.4 1.5-8.1 #) [place] [address]-07-26 18:34:00 Test Item Value Reference Range Interpretation Comments Lymphocytes # (test code = Lymphocytes 1.1 1.0-5.5 #) [place] [address]-07-26 18:34:00 Test Item Value Reference Range Interpretation Comments Monocytes # (test code 0.0 See_Comment [Aut omated message] The = Monocytes #) system which generated this result tra nsmitted reference range : <=0.8. The reference r hugo was not used to int erpret this result as normal/abnormal . [place] 325412-07-26 18:34:00 Test Item Value Reference Range Interpretation Comments Hypochrom (test code = 1+ (06/14/22 1:34 PM) Hypochrom) [place] 480482-07-26 18:34:00 Test Item Value Reference Range Interpretation Comments Glucose Lvl (test code = Glucose Lvl) 110 70-99 [place] 480482-07-26 18:34:00 Test Item Value Reference Range Interpretation Comments BUN (test code = BUN) 28 7- [place] 480482-07-26 18:34:00 Test Item Value Reference Range Interpretation Comments Creatinine Lvl (test code = Creatinine 1.05 0.50-1.40 Lvl) [place] 480482-07-26 18:34:00 Test Item Value Reference Range Interpretation Comments Sodium Lvl (test code = Sodium Lvl) 132 135-145 [place] 480482-07-26 18:34:00 Test Item Value Reference Range Interpretation Comments Potassium Lvl (test code = Potassium 4.4 3.5-5.1 Lvl) [place] 480482-07-26 18:34:00 Test Item Value Reference Range Interpretation Comments Chloride Lvl (test code = Chloride Lvl) 96 95-109 [place] 480482-07-26 18:34:00 Test Item Value Reference Range Interpretation Comments CO2 (test code = CO2) 27 24-32 [place] [address]-07-26 18:34:00 Test Item Value Reference Range Interpretation Comments Calcium Lvl (test code = Calcium Lvl) 8.5 8.5-10.5 [place] 480482-07-26 18:34:00 Test Item Value Reference Range Interpretation Comments AGAP (test code = AGAP) 13.4 10.0-20.0 [place] 480482-07-26 18:34:00 Test Item Value Reference Range Interpretation Comments eGFR (test code = eGFR) 51 [place] 325412-07-26 18:34:00 Test Item Value Reference Range Interpretation Comments WBC (test code = WBC) 13.5 3.7-10.4 [place] [address]-07-26 18:34:00 Test Item Value Reference Range Interpretation Comments RBC (test code = RBC) 3.63 4.20-5.40 [place] [address]-07-26 18:34:00 Test Item Value Reference Range Interpretation Comments Hgb (test code = Hgb) 8.7 12.0-16.0 [place] [address]-07-26 18:34:00 Test Item Value Reference Range Interpretation Comments Hct (test code = Hct) 28.2 36.0-48.0 [place] [address]-07-26 18:34:00 Test Item Value Reference Range Interpretation Comments MCV (test code = MCV) 77.5 80.0-98.0 [place] [address]-07-26 18:34:00 Test Item Value Reference Range Interpretation Comments MCH (test code = MCH) 24.0 pg 27.0-31.0 [place] [address]-07-26 18:34:00 Test Item Value Reference Range Interpretation Comments MCHC (test code = MCHC) 30.9 32.0-36.0 [place] [address]-07-26 18:34:00 Test Item Value Reference Range Interpretation Comments RDW (test code = RDW) 21.2 11.5-14.5 [place] [address]-07-26 18:34:00 Test Item Value Reference Range Interpretation Comments Platelet (test code = Platelet) 324 133-450 [place] 325412-07-26 18:34:00 Test Item Value Reference Range Interpretation Comments MPV (test code = MPV) 7.6 7.4-10.4 [place] 325412-07-26 18:34:00 Test Item Value Reference Range Interpretation Comments Plt Morph (test code = Normal (06/14/22 1:34 Plt Morph) PM) [place] [address]-07-26 18:34:00 Test Item Value Reference Range Interpretation Comments Segs (test code = Segs) 89.0 45.0-75.0 [place] [address]-07-26 18:34:00 Test Item Value Reference Range Interpretation Comments Bands (test code = 3.0 See_Comment [Automat ed message] The Bands) system which ge nerated this result transmit lavon reference range : <=11.0. The reference r hugo was not used to interpr et this result as dionne l/abnormal. [place] 325412-07-26 18:34:00 Test Item Value Reference Range Interpretation Comments Lymphocytes (test code = Lymphocytes) 8.0 20.0-40.0 [place] [address]-07-26 18:34:00 Test Item Value Reference Range Interpretation Comments Monocytes (test code = Monocytes) 0.0 2.0-12.0 [place] [address]-07-26 18:34:00 Test Item Value Reference Range Interpretation Comments Neutrophils # (test code = Neutrophils 12.4 1.5-8.1 #) [place] [address]-07-26 18:34:00 Test Item Value Reference Range Interpretation Comments Lymphocytes # (test code = Lymphocytes 1.1 1.0-5.5 #) [place] [address]-07-26 18:34:00 Test Item Value Reference Range Interpretation Comments Monocytes # (test code 0.0 See_Comment [Aut omated message] The = Monocytes #) system which generated this result tra nsmitted reference range : <=0.8. The reference r hugo was not used to int erpret this result as normal/abnormal . [place] 325412-07-26 18:34:00 Test Item Value Reference Range Interpretation Comments Hypochrom (test code = 1+ (06/14/22 1:34 PM) Hypochrom) [place] 480482-07-26 18:34:00 Test Item Value Reference Range Interpretation Comments Glucose Lvl (test code = Glucose Lvl) 110 70-99 [place] 480482-07-26 18:34:00 Test Item Value Reference Range Interpretation Comments BUN (test code = BUN) 28 - [place] 480482-07-26 18:34:00 Test Item Value Reference Range Interpretation Comments Creatinine Lvl (test code = Creatinine 1.05 0.50-1.40 Lvl) [place] 480482-07-26 18:34:00 Test Item Value Reference Range Interpretation Comments Sodium Lvl (test code = Sodium Lvl) 132 135-145 [place] 480482-07-26 18:34:00 Test Item Value Reference Range Interpretation Comments Potassium Lvl (test code = Potassium 4.4 3.5-5.1 Lvl) [place] 480482-07-26 18:34:00 Test Item Value Reference Range Interpretation Comments Chloride Lvl (test code = Chloride Lvl) 96 95-109 [place] 480482-07-26 18:34:00 Test Item Value Reference Range Interpretation Comments CO2 (test code = CO2) 27 24-32 [place] 480482-07-26 18:34:00 Test Item Value Reference Range Interpretation Comments Calcium Lvl (test code = Calcium Lvl) 8.5 8.5-10.5 [place] 480482-07-26 18:34:00 Test Item Value Reference Range Interpretation Comments AGAP (test code = AGAP) 13.4 10.0-20.0 [place] 480482-07-26 18:34:00 Test Item Value Reference Range Interpretation Comments eGFR (test code = eGFR) 51 [place] 325412-07-26 18:34:00 Test Item Value Reference Range Interpretation Comments WBC (test code = WBC) 13.5 3.7-10.4 [facility] [id number] 18:34:00 Test Item Value Reference Range Interpretation Comments RBC (test code = RBC) 3.63 4.20-5.40 [place] 325412-07-26 18:34:00 Test Item Value Reference Range Interpretation Comments Hgb (test code = Hgb) 8.7 12.0-16.0 [place] 325412-07-26 18:34:00 Test Item Value Reference Range Interpretation Comments Hct (test code = Hct) 28.2 36.0-48.0 [facility] CampusR[id number] 18:34:00 Test Item Value Reference Range Interpretation Comments MCV (test code = MCV) 77.5 80.0-98.0 [place] 325412-07-26 18:34:00 Test Item Value Reference Range Interpretation Comments MCH (test code = MCH) 24.0 pg 27.0-31.0 [facility] [id number] 18:34:00 Test Item Value Reference Range Interpretation Comments MCHC (test code = MCHC) 30.9 32.0-36.0 [facility] CampusT[id number] 18:34:00 Test Item Value Reference Range Interpretation Comments RDW (test code = RDW) 21.2 11.5-14.5 [facility] Camp[id number] 18:34:00 Test Item Value Reference Range Interpretation Comments Platelet (test code = Platelet) 324 133-450 [facility] [id number] 18:34:00 Test Item Value Reference Range Interpretation Comments MPV (test code = MPV) 7.6 7.4-10.4 [facility] CampusTjywmzzWQRJVTASVA4916-18-21 18:34:00 Test Item Value Reference Range Interpretation Comments Plt Morph (test code = Normal (06/14/22 1:34 Plt Morph) PM) [facility] CampusVkbzgsmBYYRTDCYPN5726-18-12 18:34:00 Test Item Value Reference Range Interpretation Comments Segs (test code = Segs) 89.0 45.0-75.0 [place] 325412-07-26 18:34:00 Test Item Value Reference Range Interpretation Comments Bands (test code = 3.0 See_Comment [Automat ed message] The Bands) system which ge nerated this result transmit lavon reference range : <=11.0. The reference r hugo was not used to interpr et this result as dionne l/abnormal. [place] [address]-07-26 18:34:00 Test Item Value Reference Range Interpretation Comments Lymphocytes (test code = Lymphocytes) 8.0 20.0-40.0 [place] [address]-07-26 18:34:00 Test Item Value Reference Range Interpretation Comments Monocytes (test code = Monocytes) 0.0 2.0-12.0 [place] [address]-07-26 18:34:00 Test Item Value Reference Range Interpretation Comments Neutrophils # (test code = Neutrophils 12.4 1.5-8.1 #) [place] [address]-07-26 18:34:00 Test Item Value Reference Range Interpretation Comments Lymphocytes # (test code = Lymphocytes 1.1 1.0-5.5 #) [place] [address]-07-26 18:34:00 Test Item Value Reference Range Interpretation Comments Monocytes # (test code 0.0 See_Comment [Aut omated message] The = Monocytes #) system which generated this result tra nsmitted reference range : <=0.8. The reference r hugo was not used to int erpret this result as normal/abnormal . [place] 325412-07-26 18:34:00 Test Item Value Reference Range Interpretation Comments Hypochrom (test code = 1+ (06/14/22 1:34 PM) Hypochrom) [place] 480482-07-26 18:34:00 Test Item Value Reference Range Interpretation Comments Glucose Lvl (test code = Glucose Lvl) 110 70-99 [place] 480482-07-26 18:34:00 Test Item Value Reference Range Interpretation Comments BUN (test code = BUN) 28 7- [place] 480482-07-26 18:34:00 Test Item Value Reference Range Interpretation Comments Creatinine Lvl (test code = Creatinine 1.05 0.50-1.40 Lvl) [place] 480482-07-26 18:34:00 Test Item Value Reference Range Interpretation Comments Sodium Lvl (test code = Sodium Lvl) 132 135-145 [place] 480482-07-26 18:34:00 Test Item Value Reference Range Interpretation Comments Potassium Lvl (test code = Potassium 4.4 3.5-5.1 Lvl) [place] 480482-07-26 18:34:00 Test Item Value Reference Range Interpretation Comments Chloride Lvl (test code = Chloride Lvl) 96 95-109 [place] 480482-07-26 18:34:00 Test Item Value Reference Range Interpretation Comments CO2 (test code = CO2) 27 24-32 [place] [address]-07-26 18:34:00 Test Item Value Reference Range Interpretation Comments Calcium Lvl (test code = Calcium Lvl) 8.5 8.5-10.5 [place] 480482-07-26 18:34:00 Test Item Value Reference Range Interpretation Comments AGAP (test code = AGAP) 13.4 10.0-20.0 [place] 480482-07-26 18:34:00 Test Item Value Reference Range Interpretation Comments eGFR (test code = eGFR) 51 [place] 325412-07-26 18:34:00 Test Item Value Reference Range Interpretation Comments WBC (test code = WBC) 13.5 3.7-10.4 [place] [address]-07-26 18:34:00 Test Item Value Reference Range Interpretation Comments RBC (test code = RBC) 3.63 4.20-5.40 [place] [address]-07-26 18:34:00 Test Item Value Reference Range Interpretation Comments Hgb (test code = Hgb) 8.7 12.0-16.0 [place] [address]-07-26 18:34:00 Test Item Value Reference Range Interpretation Comments Hct (test code = Hct) 28.2 36.0-48.0 [place] [address]-07-26 18:34:00 Test Item Value Reference Range Interpretation Comments MCV (test code = MCV) 77.5 80.0-98.0 [place] [address]-07-26 18:34:00 Test Item Value Reference Range Interpretation Comments MCH (test code = MCH) 24.0 pg 27.0-31.0 [place] [address]-07-26 18:34:00 Test Item Value Reference Range Interpretation Comments MCHC (test code = MCHC) 30.9 32.0-36.0 [place] [address]-07-26 18:34:00 Test Item Value Reference Range Interpretation Comments RDW (test code = RDW) 21.2 11.5-14.5 [place] [address]-07-26 18:34:00 Test Item Value Reference Range Interpretation Comments Platelet (test code = Platelet) 324 133-450 [place] 325412-07-26 18:34:00 Test Item Value Reference Range Interpretation Comments MPV (test code = MPV) 7.6 7.4-10.4 [place] 325412-07-26 18:34:00 Test Item Value Reference Range Interpretation Comments Plt Morph (test code = Normal (06/14/22 1:34 Plt Morph) PM) [place] [address]-07-26 18:34:00 Test Item Value Reference Range Interpretation Comments Segs (test code = Segs) 89.0 45.0-75.0 [place] [address]-07-26 18:34:00 Test Item Value Reference Range Interpretation Comments Bands (test code = 3.0 See_Comment [Automat ed message] The Bands) system which ge nerated this result transmit lavon reference range : <=11.0. The reference r hugo was not used to interpr et this result as dionne l/abnormal. [place] 325412-07-26 18:34:00 Test Item Value Reference Range Interpretation Comments Lymphocytes (test code = Lymphocytes) 8.0 20.0-40.0 [place] [address]-07-26 18:34:00 Test Item Value Reference Range Interpretation Comments Monocytes (test code = Monocytes) 0.0 2.0-12.0 [place] [address]-07-26 18:34:00 Test Item Value Reference Range Interpretation Comments Neutrophils # (test code = Neutrophils 12.4 1.5-8.1 #) [place] [address]-07-26 18:34:00 Test Item Value Reference Range Interpretation Comments Lymphocytes # (test code = Lymphocytes 1.1 1.0-5.5 #) [place] [address]-07-26 18:34:00 Test Item Value Reference Range Interpretation Comments Monocytes # (test code 0.0 See_Comment [Aut omated message] The = Monocytes #) system which generated this result tra nsmitted reference range : <=0.8. The reference r hugo was not used to int erpret this result as normal/abnormal . [place] 325412-07-26 18:34:00 Test Item Value Reference Range Interpretation Comments Hypochrom (test code = 1+ (06/14/22 1:34 PM) Hypochrom) [place] 480482-07-26 18:34:00 Test Item Value Reference Range Interpretation Comments Glucose Lvl (test code = Glucose Lvl) 110 70-99 [place] 480482-07-26 18:34:00 Test Item Value Reference Range Interpretation Comments BUN (test code = BUN) 28 - [place] 480482-07-26 18:34:00 Test Item Value Reference Range Interpretation Comments Creatinine Lvl (test code = Creatinine 1.05 0.50-1.40 Lvl) [place] 480482-07-26 18:34:00 Test Item Value Reference Range Interpretation Comments Sodium Lvl (test code = Sodium Lvl) 132 135-145 [place] 480482-07-26 18:34:00 Test Item Value Reference Range Interpretation Comments Potassium Lvl (test code = Potassium 4.4 3.5-5.1 Lvl) [place] 480482-07-26 18:34:00 Test Item Value Reference Range Interpretation Comments Chloride Lvl (test code = Chloride Lvl) 96 95-109 [place] 480482-07-26 18:34:00 Test Item Value Reference Range Interpretation Comments CO2 (test code = CO2) 27 24-32 [place] 480482-07-26 18:34:00 Test Item Value Reference Range Interpretation Comments Calcium Lvl (test code = Calcium Lvl) 8.5 8.5-10.5 [place] 480482-07-26 18:34:00 Test Item Value Reference Range Interpretation Comments AGAP (test code = AGAP) 13.4 10.0-20.0 [place] 480482-07-26 18:34:00 Test Item Value Reference Range Interpretation Comments eGFR (test code = eGFR) 51 [place] 325412-07-26 18:34:00 Test Item Value Reference Range Interpretation Comments WBC (test code = WBC) 13.5 3.7-10.4 [facility] C[id number] 18:34:00 Test Item Value Reference Range Interpretation Comments RBC (test code = RBC) 3.63 4.20-5.40 [place] 325412-07-26 18:34:00 Test Item Value Reference Range Interpretation Comments Hgb (test code = Hgb) 8.7 12.0-16.0 [place] 325412-07-26 18:34:00 Test Item Value Reference Range Interpretation Comments Hct (test code = Hct) 28.2 36.0-48.0 [facility] CampusAqgeesxIDZLQWLJTZ7603-05-49 18:34:00 Test Item Value Reference Range Interpretation Comments MCV (test code = MCV) 77.5 80.0-98.0 [place] 325412-07-26 18:34:00 Test Item Value Reference Range Interpretation Comments MCH (test code = MCH) 24.0 pg 27.0-31.0 [facility] [id number] 18:34:00 Test Item Value Reference Range Interpretation Comments MCHC (test code = MCHC) 30.9 32.0-36.0 [facility] CampusOkleeriCZLVPMSENE7726-28-84 18:34:00 Test Item Value Reference Range Interpretation Comments RDW (test code = RDW) 21.2 11.5-14.5 [facility] CampusJxldgwiJZFNJINBGJ9108-15-37 18:34:00 Test Item Value Reference Range Interpretation Comments Platelet (test code = Platelet) 324 133-450 [facility] CampusZrafdpmJQPBVBCWCI9373-92-03 18:34:00 Test Item Value Reference Range Interpretation Comments MPV (test code = MPV) 7.6 7.4-10.4 [facility] CampusW[id number] 18:34:00 Test Item Value Reference Range Interpretation Comments Plt Morph (test code = Normal (06/14/22 1:34 Plt Morph) PM) [facility] CampusDdkbvhwUKKFFRBCPH5521-45-87 18:34:00 Test Item Value Reference Range Interpretation Comments Segs (test code = Segs) 89.0 45.0-75.0 [place] 325412-07-26 18:34:00 Test Item Value Reference Range Interpretation Comments Bands (test code = 3.0 See_Comment [Automat ed message] The Bands) system which ge nerated this result transmit lavon reference range : <=11.0. The reference r hugo was not used to interpr et this result as dionne l/abnormal. [place] [address]-07-26 18:34:00 Test Item Value Reference Range Interpretation Comments Lymphocytes (test code = Lymphocytes) 8.0 20.0-40.0 [place] [address]-07-26 18:34:00 Test Item Value Reference Range Interpretation Comments Monocytes (test code = Monocytes) 0.0 2.0-12.0 [place] [address]-07-26 18:34:00 Test Item Value Reference Range Interpretation Comments Neutrophils # (test code = Neutrophils 12.4 1.5-8.1 #) [place] [address]-07-26 18:34:00 Test Item Value Reference Range Interpretation Comments Lymphocytes # (test code = Lymphocytes 1.1 1.0-5.5 #) [place] [address]-07-26 18:34:00 Test Item Value Reference Range Interpretation Comments Monocytes # (test code 0.0 See_Comment [Aut omated message] The = Monocytes #) system which generated this result tra nsmitted reference range : <=0.8. The reference r hugo was not used to int erpret this result as normal/abnormal . [place] 325412-07-26 18:34:00 Test Item Value Reference Range Interpretation Comments Hypochrom (test code = 1+ (06/14/22 1:34 PM) Hypochrom) [place] 480482-07-26 18:34:00 Test Item Value Reference Range Interpretation Comments Glucose Lvl (test code = Glucose Lvl) 110 70-99 [place] 480482-07-26 18:34:00 Test Item Value Reference Range Interpretation Comments BUN (test code = BUN) 28 7- [place] 480482-07-26 18:34:00 Test Item Value Reference Range Interpretation Comments Creatinine Lvl (test code = Creatinine 1.05 0.50-1.40 Lvl) [place] 480482-07-26 18:34:00 Test Item Value Reference Range Interpretation Comments Sodium Lvl (test code = Sodium Lvl) 132 135-145 [place] 480482-07-26 18:34:00 Test Item Value Reference Range Interpretation Comments Potassium Lvl (test code = Potassium 4.4 3.5-5.1 Lvl) [place] 480482-07-26 18:34:00 Test Item Value Reference Range Interpretation Comments Chloride Lvl (test code = Chloride Lvl) 96 95-109 [place] 480482-07-26 18:34:00 Test Item Value Reference Range Interpretation Comments CO2 (test code = CO2) 27 24-32 [place] [address]-07-26 18:34:00 Test Item Value Reference Range Interpretation Comments Calcium Lvl (test code = Calcium Lvl) 8.5 8.5-10.5 [place] 480482-07-26 18:34:00 Test Item Value Reference Range Interpretation Comments AGAP (test code = AGAP) 13.4 10.0-20.0 [place] 480482-07-26 18:34:00 Test Item Value Reference Range Interpretation Comments eGFR (test code = eGFR) 51 [place] 325412-07-26 18:34:00 Test Item Value Reference Range Interpretation Comments WBC (test code = WBC) 13.5 3.7-10.4 [place] [address]-07-26 18:34:00 Test Item Value Reference Range Interpretation Comments RBC (test code = RBC) 3.63 4.20-5.40 [place] [address]-07-26 18:34:00 Test Item Value Reference Range Interpretation Comments Hgb (test code = Hgb) 8.7 12.0-16.0 [place] [address]-07-26 18:34:00 Test Item Value Reference Range Interpretation Comments Hct (test code = Hct) 28.2 36.0-48.0 [place] [address]-07-26 18:34:00 Test Item Value Reference Range Interpretation Comments MCV (test code = MCV) 77.5 80.0-98.0 [place] [address]-07-26 18:34:00 Test Item Value Reference Range Interpretation Comments MCH (test code = MCH) 24.0 pg 27.0-31.0 [place] [address]-07-26 18:34:00 Test Item Value Reference Range Interpretation Comments MCHC (test code = MCHC) 30.9 32.0-36.0 [place] [address]-07-26 18:34:00 Test Item Value Reference Range Interpretation Comments RDW (test code = RDW) 21.2 11.5-14.5 [place] [address]-07-26 18:34:00 Test Item Value Reference Range Interpretation Comments Platelet (test code = Platelet) 324 133-450 [place] 325412-07-26 18:34:00 Test Item Value Reference Range Interpretation Comments MPV (test code = MPV) 7.6 7.4-10.4 [place] 325412-07-26 18:34:00 Test Item Value Reference Range Interpretation Comments Plt Morph (test code = Normal (06/14/22 1:34 Plt Morph) PM) [place] [address]-07-26 18:34:00 Test Item Value Reference Range Interpretation Comments Segs (test code = Segs) 89.0 45.0-75.0 [place] [address]-07-26 18:34:00 Test Item Value Reference Range Interpretation Comments Bands (test code = 3.0 See_Comment [Automat ed message] The Bands) system which ge nerated this result transmit lavon reference range : <=11.0. The reference r hugo was not used to interpr et this result as dionne l/abnormal. [place] 325412-07-26 18:34:00 Test Item Value Reference Range Interpretation Comments Lymphocytes (test code = Lymphocytes) 8.0 20.0-40.0 [place] [address]-07-26 18:34:00 Test Item Value Reference Range Interpretation Comments Monocytes (test code = Monocytes) 0.0 2.0-12.0 [place] [address]-07-26 18:34:00 Test Item Value Reference Range Interpretation Comments Neutrophils # (test code = Neutrophils 12.4 1.5-8.1 #) [place] [address]-07-26 18:34:00 Test Item Value Reference Range Interpretation Comments Lymphocytes # (test code = Lymphocytes 1.1 1.0-5.5 #) [place] [address]-07-26 18:34:00 Test Item Value Reference Range Interpretation Comments Monocytes # (test code 0.0 See_Comment [Aut omated message] The = Monocytes #) system which generated this result tra nsmitted reference range : <=0.8. The reference r hugo was not used to int erpret this result as normal/abnormal . [place] 325412-07-26 18:34:00 Test Item Value Reference Range Interpretation Comments Hypochrom (test code = 1+ (06/14/22 1:34 PM) Hypochrom) [place] 480482-07-26 18:34:00 Test Item Value Reference Range Interpretation Comments Glucose Lvl (test code = Glucose Lvl) 110 70-99 [place] 480482-07-26 18:34:00 Test Item Value Reference Range Interpretation Comments BUN (test code = BUN) 28 - [place] 480482-07-26 18:34:00 Test Item Value Reference Range Interpretation Comments Creatinine Lvl (test code = Creatinine 1.05 0.50-1.40 Lvl) [place] 480482-07-26 18:34:00 Test Item Value Reference Range Interpretation Comments Sodium Lvl (test code = Sodium Lvl) 132 135-145 [place] 480482-07-26 18:34:00 Test Item Value Reference Range Interpretation Comments Potassium Lvl (test code = Potassium 4.4 3.5-5.1 Lvl) [place] 480482-07-26 18:34:00 Test Item Value Reference Range Interpretation Comments Chloride Lvl (test code = Chloride Lvl) 96 95-109 [place] 480482-07-26 18:34:00 Test Item Value Reference Range Interpretation Comments CO2 (test code = CO2) 27 24-32 [place] 480482-07-26 18:34:00 Test Item Value Reference Range Interpretation Comments Calcium Lvl (test code = Calcium Lvl) 8.5 8.5-10.5 [place] 480482-07-26 18:34:00 Test Item Value Reference Range Interpretation Comments AGAP (test code = AGAP) 13.4 10.0-20.0 [place] 480482-07-26 18:34:00 Test Item Value Reference Range Interpretation Comments eGFR (test code = eGFR) 51 [place] 325412-07-26 18:34:00 Test Item Value Reference Range Interpretation Comments WBC (test code = WBC) 13.5 3.7-10.4 [facility] [id number] 18:34:00 Test Item Value Reference Range Interpretation Comments RBC (test code = RBC) 3.63 4.20-5.40 [place] 325412-07-26 18:34:00 Test Item Value Reference Range Interpretation Comments Hgb (test code = Hgb) 8.7 12.0-16.0 [place] 325412-07-26 18:34:00 Test Item Value Reference Range Interpretation Comments Hct (test code = Hct) 28.2 36.0-48.0 [facility] [id number] 18:34:00 Test Item Value Reference Range Interpretation Comments MCV (test code = MCV) 77.5 80.0-98.0 [place] 325412-07-26 18:34:00 Test Item Value Reference Range Interpretation Comments MCH (test code = MCH) 24.0 pg 27.0-31.0 [facility] C[id number] 18:34:00 Test Item Value Reference Range Interpretation Comments MCHC (test code = MCHC) 30.9 32.0-36.0 [facility] Camp[id number] 18:34:00 Test Item Value Reference Range Interpretation Comments RDW (test code = RDW) 21.2 11.5-14.5 [facility] CampusGfensohSSHYRRQGSM1883-43-55 18:34:00 Test Item Value Reference Range Interpretation Comments Platelet (test code = Platelet) 324 133-450 [facility] CampusVwtksxySYUDPCPNFV1041-74-39 18:34:00 Test Item Value Reference Range Interpretation Comments MPV (test code = MPV) 7.6 7.4-10.4 [facility] CampusCcdfygdDKCWBRJFWG9845-61-25 18:34:00 Test Item Value Reference Range Interpretation Comments Plt Morph (test code = Normal (06/14/22 1:34 Plt Morph) PM) [facility] CampusT[id number] 18:34:00 Test Item Value Reference Range Interpretation Comments Segs (test code = Segs) 89.0 45.0-75.0 [place] 325412-07-26 18:34:00 Test Item Value Reference Range Interpretation Comments Bands (test code = 3.0 See_Comment [Automat ed message] The Bands) system which ge nerated this result transmit lavon reference range : <=11.0. The reference r hugo was not used to interpr et this result as dionne l/abnormal. [place] [address]-07-26 18:34:00 Test Item Value Reference Range Interpretation Comments Lymphocytes (test code = Lymphocytes) 8.0 20.0-40.0 [place] [address]-07-26 18:34:00 Test Item Value Reference Range Interpretation Comments Monocytes (test code = Monocytes) 0.0 2.0-12.0 [place] [address]-07-26 18:34:00 Test Item Value Reference Range Interpretation Comments Neutrophils # (test code = Neutrophils 12.4 1.5-8.1 #) [place] [address]-07-26 18:34:00 Test Item Value Reference Range Interpretation Comments Lymphocytes # (test code = Lymphocytes 1.1 1.0-5.5 #) [place] [address]-07-26 18:34:00 Test Item Value Reference Range Interpretation Comments Monocytes # (test code 0.0 See_Comment [Aut omated message] The = Monocytes #) system which generated this result tra nsmitted reference range : <=0.8. The reference r uhgo was not used to int erpret this result as normal/abnormal . [place] 325412-07-26 18:34:00 Test Item Value Reference Range Interpretation Comments Hypochrom (test code = 1+ (06/14/22 1:34 PM) Hypochrom) [place] 480482-07-26 18:34:00 Test Item Value Reference Range Interpretation Comments Glucose Lvl (test code = Glucose Lvl) 110 70-99 [place] 480482-07-26 18:34:00 Test Item Value Reference Range Interpretation Comments BUN (test code = BUN) 28 7- [place] 480482-07-26 18:34:00 Test Item Value Reference Range Interpretation Comments Creatinine Lvl (test code = Creatinine 1.05 0.50-1.40 Lvl) [place] 480482-07-26 18:34:00 Test Item Value Reference Range Interpretation Comments Sodium Lvl (test code = Sodium Lvl) 132 135-145 [place] 480482-07-26 18:34:00 Test Item Value Reference Range Interpretation Comments Potassium Lvl (test code = Potassium 4.4 3.5-5.1 Lvl) [place] 480482-07-26 18:34:00 Test Item Value Reference Range Interpretation Comments Chloride Lvl (test code = Chloride Lvl) 96 95-109 [place] 480482-07-26 18:34:00 Test Item Value Reference Range Interpretation Comments CO2 (test code = CO2) 27 24-32 [place] [address]-07-26 18:34:00 Test Item Value Reference Range Interpretation Comments Calcium Lvl (test code = Calcium Lvl) 8.5 8.5-10.5 [place] 480482-07-26 18:34:00 Test Item Value Reference Range Interpretation Comments AGAP (test code = AGAP) 13.4 10.0-20.0 [place] 480482-07-26 18:34:00 Test Item Value Reference Range Interpretation Comments eGFR (test code = eGFR) 51 [place] 325412-07-26 18:34:00 Test Item Value Reference Range Interpretation Comments WBC (test code = WBC) 13.5 3.7-10.4 [place] [address]-07-26 18:34:00 Test Item Value Reference Range Interpretation Comments RBC (test code = RBC) 3.63 4.20-5.40 [place] [address]-07-26 18:34:00 Test Item Value Reference Range Interpretation Comments Hgb (test code = Hgb) 8.7 12.0-16.0 [place] [address]-07-26 18:34:00 Test Item Value Reference Range Interpretation Comments Hct (test code = Hct) 28.2 36.0-48.0 [place] [address]-07-26 18:34:00 Test Item Value Reference Range Interpretation Comments MCV (test code = MCV) 77.5 80.0-98.0 [place] [address]-07-26 18:34:00 Test Item Value Reference Range Interpretation Comments MCH (test code = MCH) 24.0 pg 27.0-31.0 [place] [address]-07-26 18:34:00 Test Item Value Reference Range Interpretation Comments MCHC (test code = MCHC) 30.9 32.0-36.0 [place] [address]-07-26 18:34:00 Test Item Value Reference Range Interpretation Comments RDW (test code = RDW) 21.2 11.5-14.5 [place] [address]-07-26 18:34:00 Test Item Value Reference Range Interpretation Comments Platelet (test code = Platelet) 324 133-450 [place] 325412-07-26 18:34:00 Test Item Value Reference Range Interpretation Comments MPV (test code = MPV) 7.6 7.4-10.4 [place] 325412-07-26 18:34:00 Test Item Value Reference Range Interpretation Comments Plt Morph (test code = Normal (06/14/22 1:34 Plt Morph) PM) [place] [address]-07-26 18:34:00 Test Item Value Reference Range Interpretation Comments Segs (test code = Segs) 89.0 45.0-75.0 [place] [address]-07-26 18:34:00 Test Item Value Reference Range Interpretation Comments Bands (test code = 3.0 See_Comment [Automat ed message] The Bands) system which ge nerated this result transmit lavon reference range : <=11.0. The reference r hugo was not used to interpr et this result as dionne l/abnormal. [place] 325412-07-26 18:34:00 Test Item Value Reference Range Interpretation Comments Lymphocytes (test code = Lymphocytes) 8.0 20.0-40.0 [place] [address]-07-26 18:34:00 Test Item Value Reference Range Interpretation Comments Monocytes (test code = Monocytes) 0.0 2.0-12.0 [place] 00948-07-26 18:34:00 Test Item Value Reference Range Interpretation Comments Neutrophils # (test code = Neutrophils 12.4 1.5-8.1 #) [place] 00948-07-26 18:34:00 Test Item Value Reference Range Interpretation Comments Lymphocytes # (test code = Lymphocytes 1.1 1.0-5.5 #) [place] 00948-07-26 18:34:00 Test Item Value Reference Range Interpretation Comments Monocytes # (test code 0.0 See_Comment [Aut omated message] The = Monocytes #) system which generated this result tra nsmitted reference range : <=0.8. The reference r hugo was not used to int erpret this result as normal/abnormal . [place] 325412-07-26 18:34:00 Test Item Value Reference Range Interpretation Comments Hypochrom (test code = 1+ (06/14/22 1:34 PM) Hypochrom) [place] 480482-07-26 18:34:00 Test Item Value Reference Range Interpretation Comments Glucose Lvl (test code = Glucose Lvl) 110 70-99 [place] 480482-07-26 18:34:00 Test Item Value Reference Range Interpretation Comments BUN (test code = BUN) 28 - [place] 480482-07-26 18:34:00 Test Item Value Reference Range Interpretation Comments Creatinine Lvl (test code = Creatinine 1.05 0.50-1.40 Lvl) [place] 480482-07-26 18:34:00 Test Item Value Reference Range Interpretation Comments Sodium Lvl (test code = Sodium Lvl) 132 135-145 [place] 480482-07-26 18:34:00 Test Item Value Reference Range Interpretation Comments Potassium Lvl (test code = Potassium 4.4 3.5-5.1 Lvl) [place] 480482-07-26 18:34:00 Test Item Value Reference Range Interpretation Comments Chloride Lvl (test code = Chloride Lvl) 96 95-109 [place] 480482-07-26 18:34:00 Test Item Value Reference Range Interpretation Comments CO2 (test code = CO2) 27 24-32 [place] 480482-07-26 18:34:00 Test Item Value Reference Range Interpretation Comments Calcium Lvl (test code = Calcium Lvl) 8.5 8.5-10.5 [place] 480482-07-26 18:34:00 Test Item Value Reference Range Interpretation Comments AGAP (test code = AGAP) 13.4 10.0-20.0 [place] 480482-07-26 18:34:00 Test Item Value Reference Range Interpretation Comments eGFR (test code = eGFR) 51 [place] 325412-07-26 18:34:00 Test Item Value Reference Range Interpretation Comments WBC (test code = WBC) 13.5 3.7-10.4 [facility] [id number] 18:34:00 Test Item Value Reference Range Interpretation Comments RBC (test code = RBC) 3.63 4.20-5.40 [place] 325412-07-26 18:34:00 Test Item Value Reference Range Interpretation Comments Hgb (test code = Hgb) 8.7 12.0-16.0 [place] 325412-07-26 18:34:00 Test Item Value Reference Range Interpretation Comments Hct (test code = Hct) 28.2 36.0-48.0 [facility] CampusFrvcixcIJWDBTWRAC0122-99-75 18:34:00 Test Item Value Reference Range Interpretation Comments MCV (test code = MCV) 77.5 80.0-98.0 [place] 325412-07-26 18:34:00 Test Item Value Reference Range Interpretation Comments MCH (test code = MCH) 24.0 pg 27.0-31.0 [facility] C[id number] 18:34:00 Test Item Value Reference Range Interpretation Comments MCHC (test code = MCHC) 30.9 32.0-36.0 [facility] CampusMhxmtitJOVQXLLTEM7768-20-04 18:34:00 Test Item Value Reference Range Interpretation Comments RDW (test code = RDW) 21.2 11.5-14.5 [facility] C[id number] 18:34:00 Test Item Value Reference Range Interpretation Comments Platelet (test code = Platelet) 324 133-450 [facility] CampusIjgivyiLYUIHORAWW3744-30-15 18:34:00 Test Item Value Reference Range Interpretation Comments MPV (test code = MPV) 7.6 7.4-10.4 [facility] CampusOpksmtaZKMABCJOFI8672-72-96 18:34:00 Test Item Value Reference Range Interpretation Comments Plt Morph (test code = Normal (06/14/22 1:34 Plt Morph) PM) [facility] CampusDeymiirWUPEVELXWW6434-96-54 18:34:00 Test Item Value Reference Range Interpretation Comments Segs (test code = Segs) 89.0 45.0-75.0 [place] 325412-07-26 18:34:00 Test Item Value Reference Range Interpretation Comments Bands (test code = 3.0 See_Comment [Automat ed message] The Bands) system which ge nerated this result transmit lavon reference range : <=11.0. The reference r hugo was not used to interpr et this result as dionne l/abnormal. [place] 00948-07-26 18:34:00 Test Item Value Reference Range Interpretation Comments Lymphocytes (test code = Lymphocytes) 8.0 20.0-40.0 [place] 00948-07-26 18:34:00 Test Item Value Reference Range Interpretation Comments Monocytes (test code = Monocytes) 0.0 2.0-12.0 [place] 00948-07-26 18:34:00 Test Item Value Reference Range Interpretation Comments Neutrophils # (test code = Neutrophils 12.4 1.5-8.1 #) [place] 00948-07-26 18:34:00 Test Item Value Reference Range Interpretation Comments Lymphocytes # (test code = Lymphocytes 1.1 1.0-5.5 #) [place] 00948-07-26 18:34:00 Test Item Value Reference Range Interpretation Comments Monocytes # (test code 0.0 See_Comment [Aut omated message] The = Monocytes #) system which generated this result tra nsmitted reference range : <=0.8. The reference r hugo was not used to int erpret this result as normal/abnormal . [place] 325412-07-26 18:34:00 Test Item Value Reference Range Interpretation Comments Hypochrom (test code = 1+ (06/14/22 1:34 PM) Hypochrom) [place] 480482-07-26 18:34:00 Test Item Value Reference Range Interpretation Comments Glucose Lvl (test code = Glucose Lvl) 110 70-99 [place] 480482-07-26 18:34:00 Test Item Value Reference Range Interpretation Comments BUN (test code = BUN) 28 7- [place] 480482-07-26 18:34:00 Test Item Value Reference Range Interpretation Comments Creatinine Lvl (test code = Creatinine 1.05 0.50-1.40 Lvl) [place] 480482-07-26 18:34:00 Test Item Value Reference Range Interpretation Comments Sodium Lvl (test code = Sodium Lvl) 132 135-145 [place] 480482-07-26 18:34:00 Test Item Value Reference Range Interpretation Comments Potassium Lvl (test code = Potassium 4.4 3.5-5.1 Lvl) [place] 480482-07-26 18:34:00 Test Item Value Reference Range Interpretation Comments Chloride Lvl (test code = Chloride Lvl) 96 95-109 [place] 480482-07-26 18:34:00 Test Item Value Reference Range Interpretation Comments CO2 (test code = CO2) 27 24-32 [place] 244[address]-07-26 18:34:00 Test Item Value Reference Range Interpretation Comments Calcium Lvl (test code = Calcium Lvl) 8.5 8.5-10.5 [place] 480482-07-26 18:34:00 Test Item Value Reference Range Interpretation Comments AGAP (test code = AGAP) 13.4 10.0-20.0 [place] 480482-07-26 18:34:00 Test Item Value Reference Range Interpretation Comments eGFR (test code = eGFR) 51 [place] 325412-07-26 18:34:00 Test Item Value Reference Range Interpretation Comments WBC (test code = WBC) 13.5 3.7-10.4 [place] 00948-07-26 18:34:00 Test Item Value Reference Range Interpretation Comments RBC (test code = RBC) 3.63 4.20-5.40 [place] 00948-07-26 18:34:00 Test Item Value Reference Range Interpretation Comments Hgb (test code = Hgb) 8.7 12.0-16.0 [place] 00948-07-26 18:34:00 Test Item Value Reference Range Interpretation Comments Hct (test code = Hct) 28.2 36.0-48.0 [place] 00948-07-26 18:34:00 Test Item Value Reference Range Interpretation Comments MCV (test code = MCV) 77.5 80.0-98.0 [place] 00948-07-26 18:34:00 Test Item Value Reference Range Interpretation Comments MCH (test code = MCH) 24.0 pg 27.0-31.0 [place] 00948-07-26 18:34:00 Test Item Value Reference Range Interpretation Comments MCHC (test code = MCHC) 30.9 32.0-36.0 [place] [address]948-07-26 18:34:00 Test Item Value Reference Range Interpretation Comments RDW (test code = RDW) 21.2 11.5-14.5 [place] 00948-07-26 18:34:00 Test Item Value Reference Range Interpretation Comments Platelet (test code = Platelet) 324 133-450 [place] 325412-07-26 18:34:00 Test Item Value Reference Range Interpretation Comments MPV (test code = MPV) 7.6 7.4-10.4 [place] 325412-07-26 18:34:00 Test Item Value Reference Range Interpretation Comments Plt Morph (test code = Normal (06/14/22 1:34 Plt Morph) PM) [place] 00948-07-26 18:34:00 Test Item Value Reference Range Interpretation Comments Segs (test code = Segs) 89.0 45.0-75.0 [place] 00948-07-26 18:34:00 Test Item Value Reference Range Interpretation Comments Bands (test code = 3.0 See_Comment [Automat ed message] The Bands) system which ge nerated this result transmit lavon reference range : <=11.0. The reference r hugo was not used to interpr et this result as dionne l/abnormal. [place] 325412-07-26 18:34:00 Test Item Value Reference Range Interpretation Comments Lymphocytes (test code = Lymphocytes) 8.0 20.0-40.0 [place] 00[address]48-07-26 18:34:00 Test Item Value Reference Range Interpretation Comments Monocytes (test code = Monocytes) 0.0 2.0-12.0 [place] 00948-07-26 18:34:00 Test Item Value Reference Range Interpretation Comments Neutrophils # (test code = Neutrophils 12.4 1.5-8.1 #) [place] [address]948-07-26 18:34:00 Test Item Value Reference Range Interpretation Comments Lymphocytes # (test code = Lymphocytes 1.1 1.0-5.5 #) [place] 00948-07-26 18:34:00 Test Item Value Reference Range Interpretation Comments Monocytes # (test code 0.0 See_Comment [Aut omated message] The = Monocytes #) system which generated this result tra nsmitted reference range : <=0.8. The reference r hugo was not used to int erpret this result as normal/abnormal . [place] 325412-07-26 18:34:00 Test Item Value Reference Range Interpretation Comments Hypochrom (test code = 1+ (06/14/22 1:34 PM) Hypochrom) [place] 480482-07-26 18:34:00 Test Item Value Reference Range Interpretation Comments Glucose Lvl (test code = Glucose Lvl) 110 70-99 [place] 480482-07-26 18:34:00 Test Item Value Reference Range Interpretation Comments BUN (test code = BUN) 28 - [place] 480482-07-26 18:34:00 Test Item Value Reference Range Interpretation Comments Creatinine Lvl (test code = Creatinine 1.05 0.50-1.40 Lvl) [place] 480482-07-26 18:34:00 Test Item Value Reference Range Interpretation Comments Sodium Lvl (test code = Sodium Lvl) 132 135-145 [place] 480482-07-26 18:34:00 Test Item Value Reference Range Interpretation Comments Potassium Lvl (test code = Potassium 4.4 3.5-5.1 Lvl) [place] 480482-07-26 18:34:00 Test Item Value Reference Range Interpretation Comments Chloride Lvl (test code = Chloride Lvl) 96 95-109 [place] 480482-07-26 18:34:00 Test Item Value Reference Range Interpretation Comments CO2 (test code = CO2) 27 24-32 [place] 480482-07-26 18:34:00 Test Item Value Reference Range Interpretation Comments Calcium Lvl (test code = Calcium Lvl) 8.5 8.5-10.5 [place] 480482-07-26 18:34:00 Test Item Value Reference Range Interpretation Comments AGAP (test code = AGAP) 13.4 10.0-20.0 [place] 480482-07-26 18:34:00 Test Item Value Reference Range Interpretation Comments eGFR (test code = eGFR) 51 [place] 325412-07-26 18:34:00 Test Item Value Reference Range Interpretation Comments WBC (test code = WBC) 13.5 3.7-10.4 [facility] CampusU[id number] 18:34:00 Test Item Value Reference Range Interpretation Comments RBC (test code = RBC) 3.63 4.20-5.40 [place] 325412-07-26 18:34:00 Test Item Value Reference Range Interpretation Comments Hgb (test code = Hgb) 8.7 12.0-16.0 [place] 325412-07-26 18:34:00 Test Item Value Reference Range Interpretation Comments Hct (test code = Hct) 28.2 36.0-48.0 [facility] CampusOtsldmbZIZXMLKZJE1103-30-97 18:34:00 Test Item Value Reference Range Interpretation Comments MCV (test code = MCV) 77.5 80.0-98.0 [place] 325412-07-26 18:34:00 Test Item Value Reference Range Interpretation Comments MCH (test code = MCH) 24.0 pg 27.0-31.0 [facility] [id number] 18:34:00 Test Item Value Reference Range Interpretation Comments MCHC (test code = MCHC) 30.9 32.0-36.0 [facility] CampusMksvzphCTFBOXUCVE5215-03-23 18:34:00 Test Item Value Reference Range Interpretation Comments RDW (test code = RDW) 21.2 11.5-14.5 [facility] CampusHqlaodzTYALCSITZM1092-12-14 18:34:00 Test Item Value Reference Range Interpretation Comments Platelet (test code = Platelet) 324 133-450 [facility] CampusCcgelagVCYKEOAJPA2549-29-34 18:34:00 Test Item Value Reference Range Interpretation Comments MPV (test code = MPV) 7.6 7.4-10.4 [facility] CampusUlwthrcSZZPKYRVCK1450-47-72 18:34:00 Test Item Value Reference Range Interpretation Comments Plt Morph (test code = Normal (06/14/22 1:34 Plt Morph) PM) [facility] CampusTvtllftHGRADUINSP3837-71-93 18:34:00 Test Item Value Reference Range Interpretation Comments Segs (test code = Segs) 89.0 45.0-75.0 [place] 325412-07-26 18:34:00 Test Item Value Reference Range Interpretation Comments Bands (test code = 3.0 See_Comment [Automat ed message] The Bands) system which ge nerated this result transmit lavon reference range : <=11.0. The reference r hugo was not used to interpr et this result as dionne l/abnormal. [place] 00[address]48-07-26 18:34:00 Test Item Value Reference Range Interpretation Comments Lymphocytes (test code = Lymphocytes) 8.0 20.0-40.0 [place] 00948-07-26 18:34:00 Test Item Value Reference Range Interpretation Comments Monocytes (test code = Monocytes) 0.0 2.0-12.0 [place] 00948-07-26 18:34:00 Test Item Value Reference Range Interpretation Comments Neutrophils # (test code = Neutrophils 12.4 1.5-8.1 #) [place] 00[address]48-07-26 18:34:00 Test Item Value Reference Range Interpretation Comments Lymphocytes # (test code = Lymphocytes 1.1 1.0-5.5 #) [place] [address]48-07-26 18:34:00 Test Item Value Reference Range Interpretation Comments Monocytes # (test code 0.0 See_Comment [Aut omated message] The = Monocytes #) system which generated this result tra nsmitted reference range : <=0.8. The reference r hugo was not used to int erpret this result as normal/abnormal . [place] 325412-07-26 18:34:00 Test Item Value Reference Range Interpretation Comments Hypochrom (test code = 1+ (06/14/22 1:34 PM) Hypochrom) [place] 480482-07-26 18:34:00 Test Item Value Reference Range Interpretation Comments Glucose Lvl (test code = Glucose Lvl) 110 70-99 [place] 480482-07-26 18:34:00 Test Item Value Reference Range Interpretation Comments BUN (test code = BUN) 28 7- [place] 480482-07-26 18:34:00 Test Item Value Reference Range Interpretation Comments Creatinine Lvl (test code = Creatinine 1.05 0.50-1.40 Lvl) [place] 480482-07-26 18:34:00 Test Item Value Reference Range Interpretation Comments Sodium Lvl (test code = Sodium Lvl) 132 135-145 [place] 480482-07-26 18:34:00 Test Item Value Reference Range Interpretation Comments Potassium Lvl (test code = Potassium 4.4 3.5-5.1 Lvl) [place] 480482-07-26 18:34:00 Test Item Value Reference Range Interpretation Comments Chloride Lvl (test code = Chloride Lvl) 96 95-109 [place] 480482-07-26 18:34:00 Test Item Value Reference Range Interpretation Comments CO2 (test code = CO2) 27 24-32 [place] 244[address]-07-26 18:34:00 Test Item Value Reference Range Interpretation Comments Calcium Lvl (test code = Calcium Lvl) 8.5 8.5-10.5 [place] 480482-07-26 18:34:00 Test Item Value Reference Range Interpretation Comments AGAP (test code = AGAP) 13.4 10.0-20.0 [place] 480482-07-26 18:34:00 Test Item Value Reference Range Interpretation Comments eGFR (test code = eGFR) 51 [place] 325412-07-26 18:34:00 Test Item Value Reference Range Interpretation Comments WBC (test code = WBC) 13.5 3.7-10.4 [place] 00[address]48-07-26 18:34:00 Test Item Value Reference Range Interpretation Comments RBC (test code = RBC) 3.63 4.20-5.40 [place] 00[address]48-07-26 18:34:00 Test Item Value Reference Range Interpretation Comments Hgb (test code = Hgb) 8.7 12.0-16.0 [place] 00[address]48-07-26 18:34:00 Test Item Value Reference Range Interpretation Comments Hct (test code = Hct) 28.2 36.0-48.0 [place] 00[address]48-07-26 18:34:00 Test Item Value Reference Range Interpretation Comments MCV (test code = MCV) 77.5 80.0-98.0 [place] 00[address]48-07-26 18:34:00 Test Item Value Reference Range Interpretation Comments MCH (test code = MCH) 24.0 pg 27.0-31.0 [place] 00[address]48-07-26 18:34:00 Test Item Value Reference Range Interpretation Comments MCHC (test code = MCHC) 30.9 32.0-36.0 [place] 00[address]48-07-26 18:34:00 Test Item Value Reference Range Interpretation Comments RDW (test code = RDW) 21.2 11.5-14.5 [place] 00[address]48-07-26 18:34:00 Test Item Value Reference Range Interpretation Comments Platelet (test code = Platelet) 324 133-450 [place] 325412-07-26 18:34:00 Test Item Value Reference Range Interpretation Comments MPV (test code = MPV) 7.6 7.4-10.4 [place] 325412-07-26 18:34:00 Test Item Value Reference Range Interpretation Comments Plt Morph (test code = Normal (06/14/22 1:34 Plt Morph) PM) [place] [address]-07-26 18:34:00 Test Item Value Reference Range Interpretation Comments Segs (test code = Segs) 89.0 45.0-75.0 [place] 00[address]48-07-26 18:34:00 Test Item Value Reference Range Interpretation Comments Bands (test code = 3.0 See_Comment [Automat ed message] The Bands) system which ge nerated this result transmit lavon reference range : <=11.0. The reference r hugo was not used to interpr et this result as dionne l/abnormal. [place] 325412-07-26 18:34:00 Test Item Value Reference Range Interpretation Comments Lymphocytes (test code = Lymphocytes) 8.0 20.0-40.0 [place] 00[address]48-07-26 18:34:00 Test Item Value Reference Range Interpretation Comments Monocytes (test code = Monocytes) 0.0 2.0-12.0 [place] 00[address]48-07-26 18:34:00 Test Item Value Reference Range Interpretation Comments Neutrophils # (test code = Neutrophils 12.4 1.5-8.1 #) [place] [address]-07-26 18:34:00 Test Item Value Reference Range Interpretation Comments Lymphocytes # (test code = Lymphocytes 1.1 1.0-5.5 #) [place] [address]-07-26 18:34:00 Test Item Value Reference Range Interpretation Comments Monocytes # (test code 0.0 See_Comment [Aut omated message] The = Monocytes #) system which generated this result tra nsmitted reference range : <=0.8. The reference r hugo was not used to int erpret this result as normal/abnormal . [place] 325412-07-26 18:34:00 Test Item Value Reference Range Interpretation Comments Hypochrom (test code = 1+ (06/14/22 1:34 PM) Hypochrom) [place] 480482-07-26 18:34:00 Test Item Value Reference Range Interpretation Comments Glucose Lvl (test code = Glucose Lvl) 110 70-99 [place] 480482-07-26 18:34:00 Test Item Value Reference Range Interpretation Comments BUN (test code = BUN) 28 - [place] 480482-07-26 18:34:00 Test Item Value Reference Range Interpretation Comments Creatinine Lvl (test code = Creatinine 1.05 0.50-1.40 Lvl) [place] 480482-07-26 18:34:00 Test Item Value Reference Range Interpretation Comments Sodium Lvl (test code = Sodium Lvl) 132 135-145 [place] 480482-07-26 18:34:00 Test Item Value Reference Range Interpretation Comments Potassium Lvl (test code = Potassium 4.4 3.5-5.1 Lvl) [place] 480482-07-26 18:34:00 Test Item Value Reference Range Interpretation Comments Chloride Lvl (test code = Chloride Lvl) 96 95-109 [place] 480482-07-26 18:34:00 Test Item Value Reference Range Interpretation Comments CO2 (test code = CO2) 27 24-32 [place] 480482-07-26 18:34:00 Test Item Value Reference Range Interpretation Comments Calcium Lvl (test code = Calcium Lvl) 8.5 8.5-10.5 [place] 480482-07-26 18:34:00 Test Item Value Reference Range Interpretation Comments AGAP (test code = AGAP) 13.4 10.0-20.0 [place] 480482-07-26 18:34:00 Test Item Value Reference Range Interpretation Comments eGFR (test code = eGFR) 51 [place] 325412-07-26 18:34:00 Test Item Value Reference Range Interpretation Comments WBC (test code = WBC) 13.5 3.7-10.4 [facility] CampusTcadgdeJMTLGKFQCO0647-17-91 18:34:00 Test Item Value Reference Range Interpretation Comments RBC (test code = RBC) 3.63 4.20-5.40 [place] 325412-07-26 18:34:00 Test Item Value Reference Range Interpretation Comments Hgb (test code = Hgb) 8.7 12.0-16.0 [place] 325412-07-26 18:34:00 Test Item Value Reference Range Interpretation Comments Hct (test code = Hct) 28.2 36.0-48.0 [facility] CampusLuytcjrKRPSGLLGAH3059-70-70 18:34:00 Test Item Value Reference Range Interpretation Comments MCV (test code = MCV) 77.5 80.0-98.0 [place] 325412-07-26 18:34:00 Test Item Value Reference Range Interpretation Comments MCH (test code = MCH) 24.0 pg 27.0-31.0 [facility] CampusKjaiyjpFSCXLNTJMB8773-69-38 18:34:00 Test Item Value Reference Range Interpretation Comments MCHC (test code = MCHC) 30.9 32.0-36.0 [facility] CampusBxnonduLMSTRGILGZ3987-84-75 18:34:00 Test Item Value Reference Range Interpretation Comments RDW (test code = RDW) 21.2 11.5-14.5 [facility] CampusPhxhcxnYZONABLCIO2901-73-92 18:34:00 Test Item Value Reference Range Interpretation Comments Platelet (test code = Platelet) 324 133-450 [facility] CampusDkxxtmzRGSKHUQIDJ0747-46-00 18:34:00 Test Item Value Reference Range Interpretation Comments MPV (test code = MPV) 7.6 7.4-10.4 [facility] CampusFgtdwtoWTYPTQZNGK5130-07-26 18:34:00 Test Item Value Reference Range Interpretation Comments Plt Morph (test code = Normal (06/14/22 1:34 Plt Morph) PM) [facility] CampusPearppyIEAXFZDKUR2614-97-51 18:34:00 Test Item Value Reference Range Interpretation Comments Segs (test code = Segs) 89.0 45.0-75.0 [place] 325412-07-26 18:34:00 Test Item Value Reference Range Interpretation Comments Bands (test code = 3.0 See_Comment [Automat ed message] The Bands) system which ge nerated this result transmit lavon reference range : <=11.0. The reference r hugo was not used to interpr et this result as dionne l/abnormal. [place] 00[address]-07-26 18:34:00 Test Item Value Reference Range Interpretation Comments Lymphocytes (test code = Lymphocytes) 8.0 20.0-40.0 [place] [address]-07-26 18:34:00 Test Item Value Reference Range Interpretation Comments Monocytes (test code = Monocytes) 0.0 2.0-12.0 [place] 00[address]-07-26 18:34:00 Test Item Value Reference Range Interpretation Comments Neutrophils # (test code = Neutrophils 12.4 1.5-8.1 #) [place] [address]-07-26 18:34:00 Test Item Value Reference Range Interpretation Comments Lymphocytes # (test code = Lymphocytes 1.1 1.0-5.5 #) [place] [address]-07-26 18:34:00 Test Item Value Reference Range Interpretation Comments Monocytes # (test code 0.0 See_Comment [Aut omated message] The = Monocytes #) system which generated this result tra nsmitted reference range : <=0.8. The reference r hugo was not used to int erpret this result as normal/abnormal . [place] 325412-07-26 18:34:00 Test Item Value Reference Range Interpretation Comments Hypochrom (test code = 1+ (06/14/22 1:34 PM) Hypochrom) [place] 480482-07-26 18:34:00 Test Item Value Reference Range Interpretation Comments Glucose Lvl (test code = Glucose Lvl) 110 70-99 [place] 480482-07-26 18:34:00 Test Item Value Reference Range Interpretation Comments BUN (test code = BUN) 28 7- [place] 480482-07-26 18:34:00 Test Item Value Reference Range Interpretation Comments Creatinine Lvl (test code = Creatinine 1.05 0.50-1.40 Lvl) [place] 480482-07-26 18:34:00 Test Item Value Reference Range Interpretation Comments Sodium Lvl (test code = Sodium Lvl) 132 135-145 [place] 480482-07-26 18:34:00 Test Item Value Reference Range Interpretation Comments Potassium Lvl (test code = Potassium 4.4 3.5-5.1 Lvl) [place] 480482-07-26 18:34:00 Test Item Value Reference Range Interpretation Comments Chloride Lvl (test code = Chloride Lvl) 96 95-109 [place] 480482-07-26 18:34:00 Test Item Value Reference Range Interpretation Comments CO2 (test code = CO2) 27 24-32 [place] [address]-07-26 18:34:00 Test Item Value Reference Range Interpretation Comments Calcium Lvl (test code = Calcium Lvl) 8.5 8.5-10.5 [place] 480482-07-26 18:34:00 Test Item Value Reference Range Interpretation Comments AGAP (test code = AGAP) 13.4 10.0-20.0 [place] 480482-07-26 18:34:00 Test Item Value Reference Range Interpretation Comments eGFR (test code = eGFR) 51 [place] 325412-07-26 18:34:00 Test Item Value Reference Range Interpretation Comments WBC (test code = WBC) 13.5 3.7-10.4 [place] [address]-07-26 18:34:00 Test Item Value Reference Range Interpretation Comments RBC (test code = RBC) 3.63 4.20-5.40 [place] [address]-07-26 18:34:00 Test Item Value Reference Range Interpretation Comments Hgb (test code = Hgb) 8.7 12.0-16.0 [place] [address]-07-26 18:34:00 Test Item Value Reference Range Interpretation Comments Hct (test code = Hct) 28.2 36.0-48.0 [place] [address]-07-26 18:34:00 Test Item Value Reference Range Interpretation Comments MCV (test code = MCV) 77.5 80.0-98.0 [place] [address]-07-26 18:34:00 Test Item Value Reference Range Interpretation Comments MCH (test code = MCH) 24.0 pg 27.0-31.0 [place] [address]-07-26 18:34:00 Test Item Value Reference Range Interpretation Comments MCHC (test code = MCHC) 30.9 32.0-36.0 [place] [address]-07-26 18:34:00 Test Item Value Reference Range Interpretation Comments RDW (test code = RDW) 21.2 11.5-14.5 [place] [address]-07-26 18:34:00 Test Item Value Reference Range Interpretation Comments Platelet (test code = Platelet) 324 133-450 [place] 325412-07-26 18:34:00 Test Item Value Reference Range Interpretation Comments MPV (test code = MPV) 7.6 7.4-10.4 [place] 325412-07-26 18:34:00 Test Item Value Reference Range Interpretation Comments Plt Morph (test code = Normal (06/14/22 1:34 Plt Morph) PM) [place] [address]-07-26 18:34:00 Test Item Value Reference Range Interpretation Comments Segs (test code = Segs) 89.0 45.0-75.0 [place] [address]-07-26 18:34:00 Test Item Value Reference Range Interpretation Comments Bands (test code = 3.0 See_Comment [Automat ed message] The Bands) system which ge nerated this result transmit lavon reference range : <=11.0. The reference r hugo was not used to interpr et this result as dionne l/abnormal. [place] 325412-07-26 18:34:00 Test Item Value Reference Range Interpretation Comments Lymphocytes (test code = Lymphocytes) 8.0 20.0-40.0 [place] [address]-07-26 18:34:00 Test Item Value Reference Range Interpretation Comments Monocytes (test code = Monocytes) 0.0 2.0-12.0 [place] [address]-07-26 18:34:00 Test Item Value Reference Range Interpretation Comments Neutrophils # (test code = Neutrophils 12.4 1.5-8.1 #) [place] [address]-07-26 18:34:00 Test Item Value Reference Range Interpretation Comments Lymphocytes # (test code = Lymphocytes 1.1 1.0-5.5 #) [place] [address]-07-26 18:34:00 Test Item Value Reference Range Interpretation Comments Monocytes # (test code 0.0 See_Comment [Aut omated message] The = Monocytes #) system which generated this result tra nsmitted reference range : <=0.8. The reference r hugo was not used to int erpret this result as normal/abnormal . [place] 325412-07-26 18:34:00 Test Item Value Reference Range Interpretation Comments Hypochrom (test code = 1+ (06/14/22 1:34 PM) Hypochrom) [place] 480482-07-26 18:34:00 Test Item Value Reference Range Interpretation Comments Glucose Lvl (test code = Glucose Lvl) 110 70-99 [place] 480482-07-26 18:34:00 Test Item Value Reference Range Interpretation Comments BUN (test code = BUN) 28 - [place] 480482-07-26 18:34:00 Test Item Value Reference Range Interpretation Comments Creatinine Lvl (test code = Creatinine 1.05 0.50-1.40 Lvl) [place] 480482-07-26 18:34:00 Test Item Value Reference Range Interpretation Comments Sodium Lvl (test code = Sodium Lvl) 132 135-145 [place] 480482-07-26 18:34:00 Test Item Value Reference Range Interpretation Comments Potassium Lvl (test code = Potassium 4.4 3.5-5.1 Lvl) [place] 480482-07-26 18:34:00 Test Item Value Reference Range Interpretation Comments Chloride Lvl (test code = Chloride Lvl) 96 95-109 [place] 480482-07-26 18:34:00 Test Item Value Reference Range Interpretation Comments CO2 (test code = CO2) 27 24-32 [place] 480482-07-26 18:34:00 Test Item Value Reference Range Interpretation Comments Calcium Lvl (test code = Calcium Lvl) 8.5 8.5-10.5 [place] 480482-07-26 18:34:00 Test Item Value Reference Range Interpretation Comments AGAP (test code = AGAP) 13.4 10.0-20.0 [place] 480482-07-26 18:34:00 Test Item Value Reference Range Interpretation Comments eGFR (test code = eGFR) 51 [place] 325412-07-26 18:34:00 Test Item Value Reference Range Interpretation Comments WBC (test code = WBC) 13.5 3.7-10.4 [facility]O[id number] 18:34:00 Test Item Value Reference Range Interpretation Comments RBC (test code = RBC) 3.63 4.20-5.40 [place] 325412-07-26 18:34:00 Test Item Value Reference Range Interpretation Comments Hgb (test code = Hgb) 8.7 12.0-16.0 [place] 325412-07-26 18:34:00 Test Item Value Reference Range Interpretation Comments Hct (test code = Hct) 28.2 36.0-48.0 [facility] [id number] 18:34:00 Test Item Value Reference Range Interpretation Comments MCV (test code = MCV) 77.5 80.0-98.0 [place] 325412-07-26 18:34:00 Test Item Value Reference Range Interpretation Comments MCH (test code = MCH) 24.0 pg 27.0-31.0 [facility] [id number] 18:34:00 Test Item Value Reference Range Interpretation Comments MCHC (test code = MCHC) 30.9 32.0-36.0 [facility] [id number] 18:34:00 Test Item Value Reference Range Interpretation Comments RDW (test code = RDW) 21.2 11.5-14.5 [facility] CampusQayxzhvLSAMKTHSZE8347-31-20 18:34:00 Test Item Value Reference Range Interpretation Comments Platelet (test code = Platelet) 324 133-450 [facility] CampusCvlcghcGXVNFPLJCQ6369-08-32 18:34:00 Test Item Value Reference Range Interpretation Comments MPV (test code = MPV) 7.6 7.4-10.4 [facility] [id number] 18:34:00 Test Item Value Reference Range Interpretation Comments Plt Morph (test code = Normal (06/14/22 1:34 Plt Morph) PM) [facility] CampusXearuzkHTATHHIYIW2681-46-94 18:34:00 Test Item Value Reference Range Interpretation Comments Segs (test code = Segs) 89.0 45.0-75.0 [place] 325412-07-26 18:34:00 Test Item Value Reference Range Interpretation Comments Bands (test code = 3.0 See_Comment [Automat ed message] The Bands) system which ge nerated this result transmit lavon reference range : <=11.0. The reference r hugo was not used to interpr et this result as dionne l/abnormal. [place] [address]-07-26 18:34:00 Test Item Value Reference Range Interpretation Comments Lymphocytes (test code = Lymphocytes) 8.0 20.0-40.0 [place] [address]-07-26 18:34:00 Test Item Value Reference Range Interpretation Comments Monocytes (test code = Monocytes) 0.0 2.0-12.0 [place] [address]-07-26 18:34:00 Test Item Value Reference Range Interpretation Comments Neutrophils # (test code = Neutrophils 12.4 1.5-8.1 #) [place] [address]-07-26 18:34:00 Test Item Value Reference Range Interpretation Comments Lymphocytes # (test code = Lymphocytes 1.1 1.0-5.5 #) [place] [address]-07-26 18:34:00 Test Item Value Reference Range Interpretation Comments Monocytes # (test code 0.0 See_Comment [Aut omated message] The = Monocytes #) system which generated this result tra nsmitted reference range : <=0.8. The reference r hugo was not used to int erpret this result as normal/abnormal . [place] 325412-07-26 18:34:00 Test Item Value Reference Range Interpretation Comments Hypochrom (test code = 1+ (06/14/22 1:34 PM) Hypochrom) [place] 480482-07-26 18:34:00 Test Item Value Reference Range Interpretation Comments Glucose Lvl (test code = Glucose Lvl) 110 70-99 [place] 480482-07-26 18:34:00 Test Item Value Reference Range Interpretation Comments BUN (test code = BUN) 28 7- [place] 480482-07-26 18:34:00 Test Item Value Reference Range Interpretation Comments Creatinine Lvl (test code = Creatinine 1.05 0.50-1.40 Lvl) [place] 480482-07-26 18:34:00 Test Item Value Reference Range Interpretation Comments Sodium Lvl (test code = Sodium Lvl) 132 135-145 [place] 480482-07-26 18:34:00 Test Item Value Reference Range Interpretation Comments Potassium Lvl (test code = Potassium 4.4 3.5-5.1 Lvl) [place] 480482-07-26 18:34:00 Test Item Value Reference Range Interpretation Comments Chloride Lvl (test code = Chloride Lvl) 96 95-109 [place] 480482-07-26 18:34:00 Test Item Value Reference Range Interpretation Comments CO2 (test code = CO2) 27 24-32 [place] [address]-07-26 18:34:00 Test Item Value Reference Range Interpretation Comments Calcium Lvl (test code = Calcium Lvl) 8.5 8.5-10.5 [place] 480482-07-26 18:34:00 Test Item Value Reference Range Interpretation Comments AGAP (test code = AGAP) 13.4 10.0-20.0 [place] 480482-07-26 18:34:00 Test Item Value Reference Range Interpretation Comments eGFR (test code = eGFR) 51 [place] 325412-07-26 18:34:00 Test Item Value Reference Range Interpretation Comments WBC (test code = WBC) 13.5 3.7-10.4 [place] [address]-07-26 18:34:00 Test Item Value Reference Range Interpretation Comments RBC (test code = RBC) 3.63 4.20-5.40 [place] [address]-07-26 18:34:00 Test Item Value Reference Range Interpretation Comments Hgb (test code = Hgb) 8.7 12.0-16.0 [place] [address]-07-26 18:34:00 Test Item Value Reference Range Interpretation Comments Hct (test code = Hct) 28.2 36.0-48.0 [place] [address]-07-26 18:34:00 Test Item Value Reference Range Interpretation Comments MCV (test code = MCV) 77.5 80.0-98.0 [place] [address]-07-26 18:34:00 Test Item Value Reference Range Interpretation Comments MCH (test code = MCH) 24.0 pg 27.0-31.0 [place] [address]-07-26 18:34:00 Test Item Value Reference Range Interpretation Comments MCHC (test code = MCHC) 30.9 32.0-36.0 [place] [address]-07-26 18:34:00 Test Item Value Reference Range Interpretation Comments RDW (test code = RDW) 21.2 11.5-14.5 [place] [address]-07-26 18:34:00 Test Item Value Reference Range Interpretation Comments Platelet (test code = Platelet) 324 133-450 [place] 325412-07-26 18:34:00 Test Item Value Reference Range Interpretation Comments MPV (test code = MPV) 7.6 7.4-10.4 [place] 325412-07-26 18:34:00 Test Item Value Reference Range Interpretation Comments Plt Morph (test code = Normal (06/14/22 1:34 Plt Morph) PM) [place] [address]-07-26 18:34:00 Test Item Value Reference Range Interpretation Comments Segs (test code = Segs) 89.0 45.0-75.0 [place] [address]-07-26 18:34:00 Test Item Value Reference Range Interpretation Comments Bands (test code = 3.0 See_Comment [Automat ed message] The Bands) system which ge nerated this result transmit lavon reference range : <=11.0. The reference r hugo was not used to interpr et this result as dionne l/abnormal. [place] 325412-07-26 18:34:00 Test Item Value Reference Range Interpretation Comments Lymphocytes (test code = Lymphocytes) 8.0 20.0-40.0 [place] [address]-07-26 18:34:00 Test Item Value Reference Range Interpretation Comments Monocytes (test code = Monocytes) 0.0 2.0-12.0 [place] [address]-07-26 18:34:00 Test Item Value Reference Range Interpretation Comments Neutrophils # (test code = Neutrophils 12.4 1.5-8.1 #) [place] [address]-07-26 18:34:00 Test Item Value Reference Range Interpretation Comments Lymphocytes # (test code = Lymphocytes 1.1 1.0-5.5 #) [place] [address]-07-26 18:34:00 Test Item Value Reference Range Interpretation Comments Monocytes # (test code 0.0 See_Comment [Aut omated message] The = Monocytes #) system which generated this result tra nsmitted reference range : <=0.8. The reference r hugo was not used to int erpret this result as normal/abnormal . [place] 325412-07-26 18:34:00 Test Item Value Reference Range Interpretation Comments Hypochrom (test code = 1+ (06/14/22 1:34 PM) Hypochrom) [place] 480482-07-26 18:34:00 Test Item Value Reference Range Interpretation Comments Glucose Lvl (test code = Glucose Lvl) 110 70-99 [place] 480482-07-26 18:34:00 Test Item Value Reference Range Interpretation Comments BUN (test code = BUN) 28 - [place] 480482-07-26 18:34:00 Test Item Value Reference Range Interpretation Comments Creatinine Lvl (test code = Creatinine 1.05 0.50-1.40 Lvl) [place] 480482-07-26 18:34:00 Test Item Value Reference Range Interpretation Comments Sodium Lvl (test code = Sodium Lvl) 132 135-145 [place] 480482-07-26 18:34:00 Test Item Value Reference Range Interpretation Comments Potassium Lvl (test code = Potassium 4.4 3.5-5.1 Lvl) [place] 480482-07-26 18:34:00 Test Item Value Reference Range Interpretation Comments Chloride Lvl (test code = Chloride Lvl) 96 95-109 [place] 480482-07-26 18:34:00 Test Item Value Reference Range Interpretation Comments CO2 (test code = CO2) 27 24-32 [place] 480482-07-26 18:34:00 Test Item Value Reference Range Interpretation Comments Calcium Lvl (test code = Calcium Lvl) 8.5 8.5-10.5 [place] 480482-07-26 18:34:00 Test Item Value Reference Range Interpretation Comments AGAP (test code = AGAP) 13.4 10.0-20.0 [place] 480482-07-26 18:34:00 Test Item Value Reference Range Interpretation Comments eGFR (test code = eGFR) 51 [place] 325412-07-26 18:34:00 Test Item Value Reference Range Interpretation Comments WBC (test code = WBC) 13.5 3.7-10.4 [facility] [id number] 18:34:00 Test Item Value Reference Range Interpretation Comments RBC (test code = RBC) 3.63 4.20-5.40 [place] 325412-07-26 18:34:00 Test Item Value Reference Range Interpretation Comments Hgb (test code = Hgb) 8.7 12.0-16.0 [place] 325412-07-26 18:34:00 Test Item Value Reference Range Interpretation Comments Hct (test code = Hct) 28.2 36.0-48.0 [facility] CampusYotwaisYSULUTSHMV8452-01-14 18:34:00 Test Item Value Reference Range Interpretation Comments MCV (test code = MCV) 77.5 80.0-98.0 [place] 325412-07-26 18:34:00 Test Item Value Reference Range Interpretation Comments MCH (test code = MCH) 24.0 pg 27.0-31.0 [facility] CampusPjqyjklOUOCXOYTXZ0736-07-21 18:34:00 Test Item Value Reference Range Interpretation Comments MCHC (test code = MCHC) 30.9 32.0-36.0 [facility] CampusRixrxymGNFWBOSJLH8983-85-14 18:34:00 Test Item Value Reference Range Interpretation Comments RDW (test code = RDW) 21.2 11.5-14.5 [facility] CampusD[id number] 18:34:00 Test Item Value Reference Range Interpretation Comments Platelet (test code = Platelet) 324 133-450 [facility] CampusAxxmopxPEJVSILKYV3587-56-28 18:34:00 Test Item Value Reference Range Interpretation Comments MPV (test code = MPV) 7.6 7.4-10.4 [facility] CampusFdvqaqrMVKCLUKKJV3858-03-28 18:34:00 Test Item Value Reference Range Interpretation Comments Plt Morph (test code = Normal (06/14/22 1:34 Plt Morph) PM) [facility] CampusGgsxtehLTCOVSAHHY8936-51-02 18:34:00 Test Item Value Reference Range Interpretation Comments Segs (test code = Segs) 89.0 45.0-75.0 [place] 325412-07-26 18:34:00 Test Item Value Reference Range Interpretation Comments Bands (test code = 3.0 See_Comment [Automat ed message] The Bands) system which ge nerated this result transmit lavon reference range : <=11.0. The reference r hugo was not used to interpr et this result as dionne l/abnormal. [place] [address]-07-26 18:34:00 Test Item Value Reference Range Interpretation Comments Lymphocytes (test code = Lymphocytes) 8.0 20.0-40.0 [place] [address]-07-26 18:34:00 Test Item Value Reference Range Interpretation Comments Monocytes (test code = Monocytes) 0.0 2.0-12.0 [place] [address]-07-26 18:34:00 Test Item Value Reference Range Interpretation Comments Neutrophils # (test code = Neutrophils 12.4 1.5-8.1 #) [place] [address]-07-26 18:34:00 Test Item Value Reference Range Interpretation Comments Lymphocytes # (test code = Lymphocytes 1.1 1.0-5.5 #) [place] [address]-07-26 18:34:00 Test Item Value Reference Range Interpretation Comments Monocytes # (test code 0.0 See_Comment [Aut omated message] The = Monocytes #) system which generated this result tra nsmitted reference range : <=0.8. The reference r hugo was not used to int erpret this result as normal/abnormal . [place] 325412-07-26 18:34:00 Test Item Value Reference Range Interpretation Comments Hypochrom (test code = 1+ (06/14/22 1:34 PM) Hypochrom) [place] 480482-07-26 18:34:00 Test Item Value Reference Range Interpretation Comments Glucose Lvl (test code = Glucose Lvl) 110 70-99 [place] 480482-07-26 18:34:00 Test Item Value Reference Range Interpretation Comments BUN (test code = BUN) 28 7- [place] 480482-07-26 18:34:00 Test Item Value Reference Range Interpretation Comments Creatinine Lvl (test code = Creatinine 1.05 0.50-1.40 Lvl) [place] 480482-07-26 18:34:00 Test Item Value Reference Range Interpretation Comments Sodium Lvl (test code = Sodium Lvl) 132 135-145 [place] 480482-07-26 18:34:00 Test Item Value Reference Range Interpretation Comments Potassium Lvl (test code = Potassium 4.4 3.5-5.1 Lvl) [place] 480482-07-26 18:34:00 Test Item Value Reference Range Interpretation Comments Chloride Lvl (test code = Chloride Lvl) 96 95-109 [place] 480482-07-26 18:34:00 Test Item Value Reference Range Interpretation Comments CO2 (test code = CO2) 27 24-32 [place] [address]-07-26 18:34:00 Test Item Value Reference Range Interpretation Comments Calcium Lvl (test code = Calcium Lvl) 8.5 8.5-10.5 [place] 480482-07-26 18:34:00 Test Item Value Reference Range Interpretation Comments AGAP (test code = AGAP) 13.4 10.0-20.0 [place] 480482-07-26 18:34:00 Test Item Value Reference Range Interpretation Comments eGFR (test code = eGFR) 51 [place] 325412-07-26 18:34:00 Test Item Value Reference Range Interpretation Comments WBC (test code = WBC) 13.5 3.7-10.4 [place] [address]-07-26 18:34:00 Test Item Value Reference Range Interpretation Comments RBC (test code = RBC) 3.63 4.20-5.40 [place] [address]-07-26 18:34:00 Test Item Value Reference Range Interpretation Comments Hgb (test code = Hgb) 8.7 12.0-16.0 [place] [address]-07-26 18:34:00 Test Item Value Reference Range Interpretation Comments Hct (test code = Hct) 28.2 36.0-48.0 [place] [address]-07-26 18:34:00 Test Item Value Reference Range Interpretation Comments MCV (test code = MCV) 77.5 80.0-98.0 [place] [address]-07-26 18:34:00 Test Item Value Reference Range Interpretation Comments MCH (test code = MCH) 24.0 pg 27.0-31.0 [place] [address]-07-26 18:34:00 Test Item Value Reference Range Interpretation Comments MCHC (test code = MCHC) 30.9 32.0-36.0 [place] [address]-07-26 18:34:00 Test Item Value Reference Range Interpretation Comments RDW (test code = RDW) 21.2 11.5-14.5 [place] [address]-07-26 18:34:00 Test Item Value Reference Range Interpretation Comments Platelet (test code = Platelet) 324 133-450 [place] 325412-07-26 18:34:00 Test Item Value Reference Range Interpretation Comments MPV (test code = MPV) 7.6 7.4-10.4 [place] 325412-07-26 18:34:00 Test Item Value Reference Range Interpretation Comments Plt Morph (test code = Normal (06/14/22 1:34 Plt Morph) PM) [place] [address]-07-26 18:34:00 Test Item Value Reference Range Interpretation Comments Segs (test code = Segs) 89.0 45.0-75.0 [place] [address]-07-26 18:34:00 Test Item Value Reference Range Interpretation Comments Bands (test code = 3.0 See_Comment [Automat ed message] The Bands) system which ge nerated this result transmit lavon reference range : <=11.0. The reference r hugo was not used to interpr et this result as dionne l/abnormal. [place] 325412-07-26 18:34:00 Test Item Value Reference Range Interpretation Comments Lymphocytes (test code = Lymphocytes) 8.0 20.0-40.0 [place] [address]-07-26 18:34:00 Test Item Value Reference Range Interpretation Comments Monocytes (test code = Monocytes) 0.0 2.0-12.0 [place] [address]-07-26 18:34:00 Test Item Value Reference Range Interpretation Comments Neutrophils # (test code = Neutrophils 12.4 1.5-8.1 #) [place] [address]-07-26 18:34:00 Test Item Value Reference Range Interpretation Comments Lymphocytes # (test code = Lymphocytes 1.1 1.0-5.5 #) [place] [address]-07-26 18:34:00 Test Item Value Reference Range Interpretation Comments Monocytes # (test code 0.0 See_Comment [Aut omated message] The = Monocytes #) system which generated this result tra nsmitted reference range : <=0.8. The reference r hugo was not used to int erpret this result as normal/abnormal . [place] 325412-07-26 18:34:00 Test Item Value Reference Range Interpretation Comments Hypochrom (test code = 1+ (06/14/22 1:34 PM) Hypochrom) [place] 480482-07-26 18:34:00 Test Item Value Reference Range Interpretation Comments Glucose Lvl (test code = Glucose Lvl) 110 70-99 [place] 480482-07-26 18:34:00 Test Item Value Reference Range Interpretation Comments BUN (test code = BUN) 28 - [place] 480482-07-26 18:34:00 Test Item Value Reference Range Interpretation Comments Creatinine Lvl (test code = Creatinine 1.05 0.50-1.40 Lvl) [place] 480482-07-26 18:34:00 Test Item Value Reference Range Interpretation Comments Sodium Lvl (test code = Sodium Lvl) 132 135-145 [place] 480482-07-26 18:34:00 Test Item Value Reference Range Interpretation Comments Potassium Lvl (test code = Potassium 4.4 3.5-5.1 Lvl) [place] 480482-07-26 18:34:00 Test Item Value Reference Range Interpretation Comments Chloride Lvl (test code = Chloride Lvl) 96 95-109 [place] 480482-07-26 18:34:00 Test Item Value Reference Range Interpretation Comments CO2 (test code = CO2) 27 24-32 [place] 480482-07-26 18:34:00 Test Item Value Reference Range Interpretation Comments Calcium Lvl (test code = Calcium Lvl) 8.5 8.5-10.5 [place] 480482-07-26 18:34:00 Test Item Value Reference Range Interpretation Comments AGAP (test code = AGAP) 13.4 10.0-20.0 [place] 480482-07-26 18:34:00 Test Item Value Reference Range Interpretation Comments eGFR (test code = eGFR) 51 [place] 325412-07-26 18:34:00 Test Item Value Reference Range Interpretation Comments WBC (test code = WBC) 13.5 3.7-10.4 [facility]PxgdcwsPZMPQYQTZV3421-69-00 18:34:00 Test Item Value Reference Range Interpretation Comments RBC (test code = RBC) 3.63 4.20-5.40 [place] 325412-07-26 18:34:00 Test Item Value Reference Range Interpretation Comments Hgb (test code = Hgb) 8.7 12.0-16.0 [place] 325412-07-26 18:34:00 Test Item Value Reference Range Interpretation Comments Hct (test code = Hct) 28.2 36.0-48.0 [facility] CampusXrhmktgXUKCCQRIDX0022-83-75 18:34:00 Test Item Value Reference Range Interpretation Comments MCV (test code = MCV) 77.5 80.0-98.0 [place] 325412-07-26 18:34:00 Test Item Value Reference Range Interpretation Comments MCH (test code = MCH) 24.0 pg 27.0-31.0 [facility] [id number] 18:34:00 Test Item Value Reference Range Interpretation Comments MCHC (test code = MCHC) 30.9 32.0-36.0 [facility] [id number] 18:34:00 Test Item Value Reference Range Interpretation Comments RDW (test code = RDW) 21.2 11.5-14.5 [facility] [id number] 18:34:00 Test Item Value Reference Range Interpretation Comments Platelet (test code = Platelet) 324 133-450 [facility] [id number] 18:34:00 Test Item Value Reference Range Interpretation Comments MPV (test code = MPV) 7.6 7.4-10.4 [facility] [id number] 18:34:00 Test Item Value Reference Range Interpretation Comments Plt Morph (test code = Normal (06/14/22 1:34 Plt Morph) PM) [facility] [id number] 18:34:00 Test Item Value Reference Range Interpretation Comments Segs (test code = Segs) 89.0 45.0-75.0 [place] 325412-07-26 18:34:00 Test Item Value Reference Range Interpretation Comments Bands (test code = 3.0 See_Comment [Automat ed message] The Bands) system which ge nerated this result transmit lavon reference range : <=11.0. The reference r hugo was not used to interpr et this result as dionne l/abnormal. [place] [address]-07-26 18:34:00 Test Item Value Reference Range Interpretation Comments Lymphocytes (test code = Lymphocytes) 8.0 20.0-40.0 [place] [address]-07-26 18:34:00 Test Item Value Reference Range Interpretation Comments Monocytes (test code = Monocytes) 0.0 2.0-12.0 [place] [address]-07-26 18:34:00 Test Item Value Reference Range Interpretation Comments Neutrophils # (test code = Neutrophils 12.4 1.5-8.1 #) [place] [address]-07-26 18:34:00 Test Item Value Reference Range Interpretation Comments Lymphocytes # (test code = Lymphocytes 1.1 1.0-5.5 #) [place] [address]-07-26 18:34:00 Test Item Value Reference Range Interpretation Comments Monocytes # (test code 0.0 See_Comment [Aut omated message] The = Monocytes #) system which generated this result tra nsmitted reference range : <=0.8. The reference r hugo was not used to int erpret this result as normal/abnormal . [place] 325412-07-26 18:34:00 Test Item Value Reference Range Interpretation Comments Hypochrom (test code = 1+ (06/14/22 1:34 PM) Hypochrom) [place] 480482-07-26 18:34:00 Test Item Value Reference Range Interpretation Comments Glucose Lvl (test code = Glucose Lvl) 110 70-99 [place] 480482-07-26 18:34:00 Test Item Value Reference Range Interpretation Comments BUN (test code = BUN) 28 7- [place] 480482-07-26 18:34:00 Test Item Value Reference Range Interpretation Comments Creatinine Lvl (test code = Creatinine 1.05 0.50-1.40 Lvl) [place] 480482-07-26 18:34:00 Test Item Value Reference Range Interpretation Comments Sodium Lvl (test code = Sodium Lvl) 132 135-145 [place] 480482-07-26 18:34:00 Test Item Value Reference Range Interpretation Comments Potassium Lvl (test code = Potassium 4.4 3.5-5.1 Lvl) [place] 480482-07-26 18:34:00 Test Item Value Reference Range Interpretation Comments Chloride Lvl (test code = Chloride Lvl) 96 95-109 [place] 480482-07-26 18:34:00 Test Item Value Reference Range Interpretation Comments CO2 (test code = CO2) 27 24-32 [place] [address]-07-26 18:34:00 Test Item Value Reference Range Interpretation Comments Calcium Lvl (test code = Calcium Lvl) 8.5 8.5-10.5 [place] 480482-07-26 18:34:00 Test Item Value Reference Range Interpretation Comments AGAP (test code = AGAP) 13.4 10.0-20.0 [place] 480482-07-26 18:34:00 Test Item Value Reference Range Interpretation Comments eGFR (test code = eGFR) 51 [place] 325412-07-26 18:34:00 Test Item Value Reference Range Interpretation Comments WBC (test code = WBC) 13.5 3.7-10.4 [place] [address]-07-26 18:34:00 Test Item Value Reference Range Interpretation Comments RBC (test code = RBC) 3.63 4.20-5.40 [place] [address]-07-26 18:34:00 Test Item Value Reference Range Interpretation Comments Hgb (test code = Hgb) 8.7 12.0-16.0 [place] [address]-07-26 18:34:00 Test Item Value Reference Range Interpretation Comments Hct (test code = Hct) 28.2 36.0-48.0 [place] [address]-07-26 18:34:00 Test Item Value Reference Range Interpretation Comments MCV (test code = MCV) 77.5 80.0-98.0 [place] [address]-07-26 18:34:00 Test Item Value Reference Range Interpretation Comments MCH (test code = MCH) 24.0 pg 27.0-31.0 [place] [address]-07-26 18:34:00 Test Item Value Reference Range Interpretation Comments MCHC (test code = MCHC) 30.9 32.0-36.0 [place] [address]-07-26 18:34:00 Test Item Value Reference Range Interpretation Comments RDW (test code = RDW) 21.2 11.5-14.5 [place] [address]-07-26 18:34:00 Test Item Value Reference Range Interpretation Comments Platelet (test code = Platelet) 324 133-450 [place] 325412-07-26 18:34:00 Test Item Value Reference Range Interpretation Comments MPV (test code = MPV) 7.6 7.4-10.4 [place] 325412-07-26 18:34:00 Test Item Value Reference Range Interpretation Comments Plt Morph (test code = Normal (06/14/22 1:34 Plt Morph) PM) [place] [address]-07-26 18:34:00 Test Item Value Reference Range Interpretation Comments Segs (test code = Segs) 89.0 45.0-75.0 [place] [address]-07-26 18:34:00 Test Item Value Reference Range Interpretation Comments Bands (test code = 3.0 See_Comment [Automat ed message] The Bands) system which ge nerated this result transmit lavon reference range : <=11.0. The reference r hugo was not used to interpr et this result as dionne l/abnormal. [place] 325412-07-26 18:34:00 Test Item Value Reference Range Interpretation Comments Lymphocytes (test code = Lymphocytes) 8.0 20.0-40.0 [place] [address]-07-26 18:34:00 Test Item Value Reference Range Interpretation Comments Monocytes (test code = Monocytes) 0.0 2.0-12.0 [place] [address]-07-26 18:34:00 Test Item Value Reference Range Interpretation Comments Neutrophils # (test code = Neutrophils 12.4 1.5-8.1 #) [place] [address]-07-26 18:34:00 Test Item Value Reference Range Interpretation Comments Lymphocytes # (test code = Lymphocytes 1.1 1.0-5.5 #) [place] [address]-07-26 18:34:00 Test Item Value Reference Range Interpretation Comments Monocytes # (test code 0.0 See_Comment [Aut omated message] The = Monocytes #) system which generated this result tra nsmitted reference range : <=0.8. The reference r hugo was not used to int erpret this result as normal/abnormal . [place] 325412-07-26 18:34:00 Test Item Value Reference Range Interpretation Comments Hypochrom (test code = 1+ (06/14/22 1:34 PM) Hypochrom) [place] 480482-07-26 18:34:00 Test Item Value Reference Range Interpretation Comments Glucose Lvl (test code = Glucose Lvl) 110 70-99 [place] 480482-07-26 18:34:00 Test Item Value Reference Range Interpretation Comments BUN (test code = BUN) 28 - [place] 480482-07-26 18:34:00 Test Item Value Reference Range Interpretation Comments Creatinine Lvl (test code = Creatinine 1.05 0.50-1.40 Lvl) [place] 480482-07-26 18:34:00 Test Item Value Reference Range Interpretation Comments Sodium Lvl (test code = Sodium Lvl) 132 135-145 [place] 480482-07-26 18:34:00 Test Item Value Reference Range Interpretation Comments Potassium Lvl (test code = Potassium 4.4 3.5-5.1 Lvl) [place] 480482-07-26 18:34:00 Test Item Value Reference Range Interpretation Comments Chloride Lvl (test code = Chloride Lvl) 96 95-109 [place] 480482-07-26 18:34:00 Test Item Value Reference Range Interpretation Comments CO2 (test code = CO2) 27 24-32 [place] 480482-07-26 18:34:00 Test Item Value Reference Range Interpretation Comments Calcium Lvl (test code = Calcium Lvl) 8.5 8.5-10.5 [place] 480482-07-26 18:34:00 Test Item Value Reference Range Interpretation Comments AGAP (test code = AGAP) 13.4 10.0-20.0 [place] 480482-07-26 18:34:00 Test Item Value Reference Range Interpretation Comments eGFR (test code = eGFR) 51 [place] 325412-07-26 18:34:00 Test Item Value Reference Range Interpretation Comments WBC (test code = WBC) 13.5 3.7-10.4 [facility] [id number] 18:34:00 Test Item Value Reference Range Interpretation Comments RBC (test code = RBC) 3.63 4.20-5.40 [place] 325412-07-26 18:34:00 Test Item Value Reference Range Interpretation Comments Hgb (test code = Hgb) 8.7 12.0-16.0 [place] 325412-07-26 18:34:00 Test Item Value Reference Range Interpretation Comments Hct (test code = Hct) 28.2 36.0-48.0 [facility] [id number] 18:34:00 Test Item Value Reference Range Interpretation Comments MCV (test code = MCV) 77.5 80.0-98.0 [place] 325412-07-26 18:34:00 Test Item Value Reference Range Interpretation Comments MCH (test code = MCH) 24.0 pg 27.0-31.0 [facility] [id number] 18:34:00 Test Item Value Reference Range Interpretation Comments MCHC (test code = MCHC) 30.9 32.0-36.0 [facility] CampusVidzcrcBXQMDMMSOK8181-28-22 18:34:00 Test Item Value Reference Range Interpretation Comments RDW (test code = RDW) 21.2 11.5-14.5 [facility] [id number] 18:34:00 Test Item Value Reference Range Interpretation Comments Platelet (test code = Platelet) 324 133-450 [facility] CampusNwpjfylCWREFRARJT5182-08-25 18:34:00 Test Item Value Reference Range Interpretation Comments MPV (test code = MPV) 7.6 7.4-10.4 [facility] C[id number] 18:34:00 Test Item Value Reference Range Interpretation Comments Plt Morph (test code = Normal (06/14/22 1:34 Plt Morph) PM) [facility] CampusPhjuxzdZDTGTQYTEV8049-06-31 18:34:00 Test Item Value Reference Range Interpretation Comments Segs (test code = Segs) 89.0 45.0-75.0 [place] 325412-07-26 18:34:00 Test Item Value Reference Range Interpretation Comments Bands (test code = 3.0 See_Comment [Automat ed message] The Bands) system which ge nerated this result transmit lavon reference range : <=11.0. The reference r hugo was not used to interpr et this result as dionne l/abnormal. [place] [address]-07-26 18:34:00 Test Item Value Reference Range Interpretation Comments Lymphocytes (test code = Lymphocytes) 8.0 20.0-40.0 [place] [address]-07-26 18:34:00 Test Item Value Reference Range Interpretation Comments Monocytes (test code = Monocytes) 0.0 2.0-12.0 [place] [address]-07-26 18:34:00 Test Item Value Reference Range Interpretation Comments Neutrophils # (test code = Neutrophils 12.4 1.5-8.1 #) [place] [address]-07-26 18:34:00 Test Item Value Reference Range Interpretation Comments Lymphocytes # (test code = Lymphocytes 1.1 1.0-5.5 #) [place] [address]-07-26 18:34:00 Test Item Value Reference Range Interpretation Comments Monocytes # (test code 0.0 See_Comment [Aut omated message] The = Monocytes #) system which generated this result tra nsmitted reference range : <=0.8. The reference r hugo was not used to int erpret this result as normal/abnormal . [place] 325412-07-26 18:34:00 Test Item Value Reference Range Interpretation Comments Hypochrom (test code = 1+ (06/14/22 1:34 PM) Hypochrom) [place] 480482-07-26 18:34:00 Test Item Value Reference Range Interpretation Comments Glucose Lvl (test code = Glucose Lvl) 110 70-99 [place] 480482-07-26 18:34:00 Test Item Value Reference Range Interpretation Comments BUN (test code = BUN) 28 7- [place] 480482-07-26 18:34:00 Test Item Value Reference Range Interpretation Comments Creatinine Lvl (test code = Creatinine 1.05 0.50-1.40 Lvl) [place] 480482-07-26 18:34:00 Test Item Value Reference Range Interpretation Comments Sodium Lvl (test code = Sodium Lvl) 132 135-145 [place] 480482-07-26 18:34:00 Test Item Value Reference Range Interpretation Comments Potassium Lvl (test code = Potassium 4.4 3.5-5.1 Lvl) [place] 480482-07-26 18:34:00 Test Item Value Reference Range Interpretation Comments Chloride Lvl (test code = Chloride Lvl) 96 95-109 [place] 480482-07-26 18:34:00 Test Item Value Reference Range Interpretation Comments CO2 (test code = CO2) 27 24-32 [place] [address]-07-26 18:34:00 Test Item Value Reference Range Interpretation Comments Calcium Lvl (test code = Calcium Lvl) 8.5 8.5-10.5 [place] 480482-07-26 18:34:00 Test Item Value Reference Range Interpretation Comments AGAP (test code = AGAP) 13.4 10.0-20.0 [place] 480482-07-26 18:34:00 Test Item Value Reference Range Interpretation Comments eGFR (test code = eGFR) 51 [place] 325412-07-26 18:34:00 Test Item Value Reference Range Interpretation Comments WBC (test code = WBC) 13.5 3.7-10.4 [place] [address]-07-26 18:34:00 Test Item Value Reference Range Interpretation Comments RBC (test code = RBC) 3.63 4.20-5.40 [place] [address]-07-26 18:34:00 Test Item Value Reference Range Interpretation Comments Hgb (test code = Hgb) 8.7 12.0-16.0 [place] [address]-07-26 18:34:00 Test Item Value Reference Range Interpretation Comments Hct (test code = Hct) 28.2 36.0-48.0 [place] [address]-07-26 18:34:00 Test Item Value Reference Range Interpretation Comments MCV (test code = MCV) 77.5 80.0-98.0 [place] [address]-07-26 18:34:00 Test Item Value Reference Range Interpretation Comments MCH (test code = MCH) 24.0 pg 27.0-31.0 [place] [address]-07-26 18:34:00 Test Item Value Reference Range Interpretation Comments MCHC (test code = MCHC) 30.9 32.0-36.0 [place] [address]-07-26 18:34:00 Test Item Value Reference Range Interpretation Comments RDW (test code = RDW) 21.2 11.5-14.5 [place] [address]-07-26 18:34:00 Test Item Value Reference Range Interpretation Comments Platelet (test code = Platelet) 324 133-450 [place] 325412-07-26 18:34:00 Test Item Value Reference Range Interpretation Comments MPV (test code = MPV) 7.6 7.4-10.4 [place] 325412-07-26 18:34:00 Test Item Value Reference Range Interpretation Comments Plt Morph (test code = Normal (06/14/22 1:34 Plt Morph) PM) [place] [address]-07-26 18:34:00 Test Item Value Reference Range Interpretation Comments Segs (test code = Segs) 89.0 45.0-75.0 [place] [address]-07-26 18:34:00 Test Item Value Reference Range Interpretation Comments Bands (test code = 3.0 See_Comment [Automat ed message] The Bands) system which ge nerated this result transmit lavon reference range : <=11.0. The reference r hugo was not used to interpr et this result as dionne l/abnormal. [place] 325412-07-26 18:34:00 Test Item Value Reference Range Interpretation Comments Lymphocytes (test code = Lymphocytes) 8.0 20.0-40.0 [place] [address]-07-26 18:34:00 Test Item Value Reference Range Interpretation Comments Monocytes (test code = Monocytes) 0.0 2.0-12.0 [place] [address]-07-26 18:34:00 Test Item Value Reference Range Interpretation Comments Neutrophils # (test code = Neutrophils 12.4 1.5-8.1 #) [place] [address]-07-26 18:34:00 Test Item Value Reference Range Interpretation Comments Lymphocytes # (test code = Lymphocytes 1.1 1.0-5.5 #) [place] [address]-07-26 18:34:00 Test Item Value Reference Range Interpretation Comments Monocytes # (test code 0.0 See_Comment [Aut omated message] The = Monocytes #) system which generated this result tra nsmitted reference range : <=0.8. The reference r hugo was not used to int erpret this result as normal/abnormal . [place] 325412-07-26 18:34:00 Test Item Value Reference Range Interpretation Comments Hypochrom (test code = 1+ (06/14/22 1:34 PM) Hypochrom) [place] 480482-07-26 18:34:00 Test Item Value Reference Range Interpretation Comments Glucose Lvl (test code = Glucose Lvl) 110 70-99 [place] 480482-07-26 18:34:00 Test Item Value Reference Range Interpretation Comments BUN (test code = BUN) 28 - [place] 480482-07-26 18:34:00 Test Item Value Reference Range Interpretation Comments Creatinine Lvl (test code = Creatinine 1.05 0.50-1.40 Lvl) [place] 480482-07-26 18:34:00 Test Item Value Reference Range Interpretation Comments Sodium Lvl (test code = Sodium Lvl) 132 135-145 [place] 480482-07-26 18:34:00 Test Item Value Reference Range Interpretation Comments Potassium Lvl (test code = Potassium 4.4 3.5-5.1 Lvl) [place] 480482-07-26 18:34:00 Test Item Value Reference Range Interpretation Comments Chloride Lvl (test code = Chloride Lvl) 96 95-109 [place] 480482-07-26 18:34:00 Test Item Value Reference Range Interpretation Comments CO2 (test code = CO2) 27 24-32 [place] 480482-07-26 18:34:00 Test Item Value Reference Range Interpretation Comments Calcium Lvl (test code = Calcium Lvl) 8.5 8.5-10.5 [place] 480482-07-26 18:34:00 Test Item Value Reference Range Interpretation Comments AGAP (test code = AGAP) 13.4 10.0-20.0 [place] 480482-07-26 18:34:00 Test Item Value Reference Range Interpretation Comments eGFR (test code = eGFR) 51 [place] 325412-07-26 18:34:00 Test Item Value Reference Range Interpretation Comments WBC (test code = WBC) 13.5 3.7-10.4 [facility] [id number] 18:34:00 Test Item Value Reference Range Interpretation Comments RBC (test code = RBC) 3.63 4.20-5.40 [place] 325412-07-26 18:34:00 Test Item Value Reference Range Interpretation Comments Hgb (test code = Hgb) 8.7 12.0-16.0 [place] 325412-07-26 18:34:00 Test Item Value Reference Range Interpretation Comments Hct (test code = Hct) 28.2 36.0-48.0 [facility] [id number] 18:34:00 Test Item Value Reference Range Interpretation Comments MCV (test code = MCV) 77.5 80.0-98.0 [place] 325412-07-26 18:34:00 Test Item Value Reference Range Interpretation Comments MCH (test code = MCH) 24.0 pg 27.0-31.0 [facility] CampusDwewzawYUZIKHXFHA2874-23-04 18:34:00 Test Item Value Reference Range Interpretation Comments MCHC (test code = MCHC) 30.9 32.0-36.0 [facility] [id number] 18:34:00 Test Item Value Reference Range Interpretation Comments RDW (test code = RDW) 21.2 11.5-14.5 [facility] C[id number] 18:34:00 Test Item Value Reference Range Interpretation Comments Platelet (test code = Platelet) 324 133-450 [facility] [id number] 18:34:00 Test Item Value Reference Range Interpretation Comments MPV (test code = MPV) 7.6 7.4-10.4 [facility] CampusYpkwwbxWDUTHHPXKB4299-14-27 18:34:00 Test Item Value Reference Range Interpretation Comments Plt Morph (test code = Normal (06/14/22 1:34 Plt Morph) PM) [facility] CampusNvzmjthKITWJVKMZO3584-42-06 18:34:00 Test Item Value Reference Range Interpretation Comments Segs (test code = Segs) 89.0 45.0-75.0 [place] 325412-07-26 18:34:00 Test Item Value Reference Range Interpretation Comments Bands (test code = 3.0 See_Comment [Automat ed message] The Bands) system which ge nerated this result transmit lavon reference range : <=11.0. The reference r hugo was not used to interpr et this result as dionne l/abnormal. [place] [address]-07-26 18:34:00 Test Item Value Reference Range Interpretation Comments Lymphocytes (test code = Lymphocytes) 8.0 20.0-40.0 [place] [address]-07-26 18:34:00 Test Item Value Reference Range Interpretation Comments Monocytes (test code = Monocytes) 0.0 2.0-12.0 [place] [address]-07-26 18:34:00 Test Item Value Reference Range Interpretation Comments Neutrophils # (test code = Neutrophils 12.4 1.5-8.1 #) [place] [address]-07-26 18:34:00 Test Item Value Reference Range Interpretation Comments Lymphocytes # (test code = Lymphocytes 1.1 1.0-5.5 #) [place] [address]-07-26 18:34:00 Test Item Value Reference Range Interpretation Comments Monocytes # (test code 0.0 See_Comment [Aut omated message] The = Monocytes #) system which generated this result tra nsmitted reference range : <=0.8. The reference r hugo was not used to int erpret this result as normal/abnormal . [place] 325412-07-26 18:34:00 Test Item Value Reference Range Interpretation Comments Hypochrom (test code = 1+ (06/14/22 1:34 PM) Hypochrom) [place] 480482-07-26 18:34:00 Test Item Value Reference Range Interpretation Comments Glucose Lvl (test code = Glucose Lvl) 110 70-99 [place] 480482-07-26 18:34:00 Test Item Value Reference Range Interpretation Comments BUN (test code = BUN) 28 7- [place] 480482-07-26 18:34:00 Test Item Value Reference Range Interpretation Comments Creatinine Lvl (test code = Creatinine 1.05 0.50-1.40 Lvl) [place] 480482-07-26 18:34:00 Test Item Value Reference Range Interpretation Comments Sodium Lvl (test code = Sodium Lvl) 132 135-145 [place] 480482-07-26 18:34:00 Test Item Value Reference Range Interpretation Comments Potassium Lvl (test code = Potassium 4.4 3.5-5.1 Lvl) [place] 480482-07-26 18:34:00 Test Item Value Reference Range Interpretation Comments Chloride Lvl (test code = Chloride Lvl) 96 95-109 [place] 480482-07-26 18:34:00 Test Item Value Reference Range Interpretation Comments CO2 (test code = CO2) 27 24-32 [place] [address]-07-26 18:34:00 Test Item Value Reference Range Interpretation Comments Calcium Lvl (test code = Calcium Lvl) 8.5 8.5-10.5 [place] 480482-07-26 18:34:00 Test Item Value Reference Range Interpretation Comments AGAP (test code = AGAP) 13.4 10.0-20.0 [place] 480482-07-26 18:34:00 Test Item Value Reference Range Interpretation Comments eGFR (test code = eGFR) 51 [place] 325412-07-26 18:34:00 Test Item Value Reference Range Interpretation Comments WBC (test code = WBC) 13.5 3.7-10.4 [place] [address]-07-26 18:34:00 Test Item Value Reference Range Interpretation Comments RBC (test code = RBC) 3.63 4.20-5.40 [place] [address]-07-26 18:34:00 Test Item Value Reference Range Interpretation Comments Hgb (test code = Hgb) 8.7 12.0-16.0 [place] [address]-07-26 18:34:00 Test Item Value Reference Range Interpretation Comments Hct (test code = Hct) 28.2 36.0-48.0 [place] [address]-07-26 18:34:00 Test Item Value Reference Range Interpretation Comments MCV (test code = MCV) 77.5 80.0-98.0 [place] [address]-07-26 18:34:00 Test Item Value Reference Range Interpretation Comments MCH (test code = MCH) 24.0 pg 27.0-31.0 [place] [address]-07-26 18:34:00 Test Item Value Reference Range Interpretation Comments MCHC (test code = MCHC) 30.9 32.0-36.0 [place] [address]-07-26 18:34:00 Test Item Value Reference Range Interpretation Comments RDW (test code = RDW) 21.2 11.5-14.5 [place] [address]-07-26 18:34:00 Test Item Value Reference Range Interpretation Comments Platelet (test code = Platelet) 324 133-450 [place] 325412-07-26 18:34:00 Test Item Value Reference Range Interpretation Comments MPV (test code = MPV) 7.6 7.4-10.4 [place] 325412-07-26 18:34:00 Test Item Value Reference Range Interpretation Comments Plt Morph (test code = Normal (06/14/22 1:34 Plt Morph) PM) [place] [address]-07-26 18:34:00 Test Item Value Reference Range Interpretation Comments Segs (test code = Segs) 89.0 45.0-75.0 [place] [address]-07-26 18:34:00 Test Item Value Reference Range Interpretation Comments Bands (test code = 3.0 See_Comment [Automat ed message] The Bands) system which ge nerated this result transmit lavon reference range : <=11.0. The reference r hugo was not used to interpr et this result as dionne l/abnormal. [place] 325412-07-26 18:34:00 Test Item Value Reference Range Interpretation Comments Lymphocytes (test code = Lymphocytes) 8.0 20.0-40.0 [place] [address]-07-26 18:34:00 Test Item Value Reference Range Interpretation Comments Monocytes (test code = Monocytes) 0.0 2.0-12.0 [place] [address]-07-26 18:34:00 Test Item Value Reference Range Interpretation Comments Neutrophils # (test code = Neutrophils 12.4 1.5-8.1 #) [place] [address]-07-26 18:34:00 Test Item Value Reference Range Interpretation Comments Lymphocytes # (test code = Lymphocytes 1.1 1.0-5.5 #) [place] [address]-07-26 18:34:00 Test Item Value Reference Range Interpretation Comments Monocytes # (test code 0.0 See_Comment [Aut omated message] The = Monocytes #) system which generated this result tra nsmitted reference range : <=0.8. The reference r hugo was not used to int erpret this result as normal/abnormal . [place] 325412-07-26 18:34:00 Test Item Value Reference Range Interpretation Comments Hypochrom (test code = 1+ (06/14/22 1:34 PM) Hypochrom) [place] 480482-07-26 18:34:00 Test Item Value Reference Range Interpretation Comments Glucose Lvl (test code = Glucose Lvl) 110 70-99 [place] 480482-07-26 18:34:00 Test Item Value Reference Range Interpretation Comments BUN (test code = BUN) 28 - [place] 480482-07-26 18:34:00 Test Item Value Reference Range Interpretation Comments Creatinine Lvl (test code = Creatinine 1.05 0.50-1.40 Lvl) [place] 480482-07-26 18:34:00 Test Item Value Reference Range Interpretation Comments Sodium Lvl (test code = Sodium Lvl) 132 135-145 [place] 480482-07-26 18:34:00 Test Item Value Reference Range Interpretation Comments Potassium Lvl (test code = Potassium 4.4 3.5-5.1 Lvl) [place] 480482-07-26 18:34:00 Test Item Value Reference Range Interpretation Comments Chloride Lvl (test code = Chloride Lvl) 96 95-109 [place] 480482-07-26 18:34:00 Test Item Value Reference Range Interpretation Comments CO2 (test code = CO2) 27 24-32 [place] 480482-07-26 18:34:00 Test Item Value Reference Range Interpretation Comments Calcium Lvl (test code = Calcium Lvl) 8.5 8.5-10.5 [place] 480482-07-26 18:34:00 Test Item Value Reference Range Interpretation Comments AGAP (test code = AGAP) 13.4 10.0-20.0 [place] 480482-07-26 18:34:00 Test Item Value Reference Range Interpretation Comments eGFR (test code = eGFR) 51 [place] 325412-07-26 18:34:00 Test Item Value Reference Range Interpretation Comments WBC (test code = WBC) 13.5 3.7-10.4 [facility] [id number] 18:34:00 Test Item Value Reference Range Interpretation Comments RBC (test code = RBC) 3.63 4.20-5.40 [place] 325412-07-26 18:34:00 Test Item Value Reference Range Interpretation Comments Hgb (test code = Hgb) 8.7 12.0-16.0 [place] 325412-07-26 18:34:00 Test Item Value Reference Range Interpretation Comments Hct (test code = Hct) 28.2 36.0-48.0 [facility] [id number] 18:34:00 Test Item Value Reference Range Interpretation Comments MCV (test code = MCV) 77.5 80.0-98.0 [place] 325412-07-26 18:34:00 Test Item Value Reference Range Interpretation Comments MCH (test code = MCH) 24.0 pg 27.0-31.0 [facility] CampusQ[id number] 18:34:00 Test Item Value Reference Range Interpretation Comments MCHC (test code = MCHC) 30.9 32.0-36.0 [facility] [id number] 18:34:00 Test Item Value Reference Range Interpretation Comments RDW (test code = RDW) 21.2 11.5-14.5 [facility] [id number] 18:34:00 Test Item Value Reference Range Interpretation Comments Platelet (test code = Platelet) 324 133-450 [facility] [id number] 18:34:00 Test Item Value Reference Range Interpretation Comments MPV (test code = MPV) 7.6 7.4-10.4 [facility] [id number] 18:34:00 Test Item Value Reference Range Interpretation Comments Plt Morph (test code = Normal (06/14/22 1:34 Plt Morph) PM) [facility] C[id number] 18:34:00 Test Item Value Reference Range Interpretation Comments Segs (test code = Segs) 89.0 45.0-75.0 [place] 325412-07-26 18:34:00 Test Item Value Reference Range Interpretation Comments Bands (test code = 3.0 See_Comment [Automat ed message] The Bands) system which ge nerated this result transmit lavon reference range : <=11.0. The reference r hugo was not used to interpr et this result as dionne l/abnormal. [place] [address]-07-26 18:34:00 Test Item Value Reference Range Interpretation Comments Lymphocytes (test code = Lymphocytes) 8.0 20.0-40.0 [place] [address]-07-26 18:34:00 Test Item Value Reference Range Interpretation Comments Monocytes (test code = Monocytes) 0.0 2.0-12.0 [place] [address]-07-26 18:34:00 Test Item Value Reference Range Interpretation Comments Neutrophils # (test code = Neutrophils 12.4 1.5-8.1 #) [place] [address]-07-26 18:34:00 Test Item Value Reference Range Interpretation Comments Lymphocytes # (test code = Lymphocytes 1.1 1.0-5.5 #) [place] [address]-07-26 18:34:00 Test Item Value Reference Range Interpretation Comments Monocytes # (test code 0.0 See_Comment [Aut omated message] The = Monocytes #) system which generated this result tra nsmitted reference range : <=0.8. The reference r hugo was not used to int erpret this result as normal/abnormal . [place] 325412-07-26 18:34:00 Test Item Value Reference Range Interpretation Comments Hypochrom (test code = 1+ (06/14/22 1:34 PM) Hypochrom) [place] 480482-07-26 18:34:00 Test Item Value Reference Range Interpretation Comments Glucose Lvl (test code = Glucose Lvl) 110 70-99 [place] 480482-07-26 18:34:00 Test Item Value Reference Range Interpretation Comments BUN (test code = BUN) 28 7- [place] 480482-07-26 18:34:00 Test Item Value Reference Range Interpretation Comments Creatinine Lvl (test code = Creatinine 1.05 0.50-1.40 Lvl) [place] 480482-07-26 18:34:00 Test Item Value Reference Range Interpretation Comments Sodium Lvl (test code = Sodium Lvl) 132 135-145 [place] 480482-07-26 18:34:00 Test Item Value Reference Range Interpretation Comments Potassium Lvl (test code = Potassium 4.4 3.5-5.1 Lvl) [place] 480482-07-26 18:34:00 Test Item Value Reference Range Interpretation Comments Chloride Lvl (test code = Chloride Lvl) 96 95-109 [place] 480482-07-26 18:34:00 Test Item Value Reference Range Interpretation Comments CO2 (test code = CO2) 27 24-32 [place] [address]-07-26 18:34:00 Test Item Value Reference Range Interpretation Comments Calcium Lvl (test code = Calcium Lvl) 8.5 8.5-10.5 [place] 480482-07-26 18:34:00 Test Item Value Reference Range Interpretation Comments AGAP (test code = AGAP) 13.4 10.0-20.0 [place] 480482-07-26 18:34:00 Test Item Value Reference Range Interpretation Comments eGFR (test code = eGFR) 51 [place] 325412-07-26 18:34:00 Test Item Value Reference Range Interpretation Comments WBC (test code = WBC) 13.5 3.7-10.4 [place] [address]-07-26 18:34:00 Test Item Value Reference Range Interpretation Comments RBC (test code = RBC) 3.63 4.20-5.40 [place] [address]-07-26 18:34:00 Test Item Value Reference Range Interpretation Comments Hgb (test code = Hgb) 8.7 12.0-16.0 [place] [address]-07-26 18:34:00 Test Item Value Reference Range Interpretation Comments Hct (test code = Hct) 28.2 36.0-48.0 [place] [address]-07-26 18:34:00 Test Item Value Reference Range Interpretation Comments MCV (test code = MCV) 77.5 80.0-98.0 [place] [address]-07-26 18:34:00 Test Item Value Reference Range Interpretation Comments MCH (test code = MCH) 24.0 pg 27.0-31.0 [place] [address]-07-26 18:34:00 Test Item Value Reference Range Interpretation Comments MCHC (test code = MCHC) 30.9 32.0-36.0 [place] [address]-07-26 18:34:00 Test Item Value Reference Range Interpretation Comments RDW (test code = RDW) 21.2 11.5-14.5 [place] [address]-07-26 18:34:00 Test Item Value Reference Range Interpretation Comments Platelet (test code = Platelet) 324 133-450 [place] 325412-07-26 18:34:00 Test Item Value Reference Range Interpretation Comments MPV (test code = MPV) 7.6 7.4-10.4 [place] 325412-07-26 18:34:00 Test Item Value Reference Range Interpretation Comments Plt Morph (test code = Normal (06/14/22 1:34 Plt Morph) PM) [place] [address]-07-26 18:34:00 Test Item Value Reference Range Interpretation Comments Segs (test code = Segs) 89.0 45.0-75.0 [place] [address]-07-26 18:34:00 Test Item Value Reference Range Interpretation Comments Bands (test code = 3.0 See_Comment [Automat ed message] The Bands) system which ge nerated this result transmit lavon reference range : <=11.0. The reference r hugo was not used to interpr et this result as dionne l/abnormal. [place] 325412-07-26 18:34:00 Test Item Value Reference Range Interpretation Comments Lymphocytes (test code = Lymphocytes) 8.0 20.0-40.0 [place] [address]-07-26 18:34:00 Test Item Value Reference Range Interpretation Comments Monocytes (test code = Monocytes) 0.0 2.0-12.0 [place] [address]-07-26 18:34:00 Test Item Value Reference Range Interpretation Comments Neutrophils # (test code = Neutrophils 12.4 1.5-8.1 #) [place] [address]-07-26 18:34:00 Test Item Value Reference Range Interpretation Comments Lymphocytes # (test code = Lymphocytes 1.1 1.0-5.5 #) [place] [address]-07-26 18:34:00 Test Item Value Reference Range Interpretation Comments Monocytes # (test code 0.0 See_Comment [Aut omated message] The = Monocytes #) system which generated this result tra nsmitted reference range : <=0.8. The reference r hugo was not used to int erpret this result as normal/abnormal . [place] 325412-07-26 18:34:00 Test Item Value Reference Range Interpretation Comments Hypochrom (test code = 1+ (06/14/22 1:34 PM) Hypochrom) [place] 480482-07-26 18:34:00 Test Item Value Reference Range Interpretation Comments Glucose Lvl (test code = Glucose Lvl) 110 70-99 [place] 480482-07-26 18:34:00 Test Item Value Reference Range Interpretation Comments BUN (test code = BUN) 28 - [place] 480482-07-26 18:34:00 Test Item Value Reference Range Interpretation Comments Creatinine Lvl (test code = Creatinine 1.05 0.50-1.40 Lvl) [place] 480482-07-26 18:34:00 Test Item Value Reference Range Interpretation Comments Sodium Lvl (test code = Sodium Lvl) 132 135-145 [place] 480482-07-26 18:34:00 Test Item Value Reference Range Interpretation Comments Potassium Lvl (test code = Potassium 4.4 3.5-5.1 Lvl) [place] 480482-07-26 18:34:00 Test Item Value Reference Range Interpretation Comments Chloride Lvl (test code = Chloride Lvl) 96 95-109 [place] 480482-07-26 18:34:00 Test Item Value Reference Range Interpretation Comments CO2 (test code = CO2) 27 24-32 [place] 480482-07-26 18:34:00 Test Item Value Reference Range Interpretation Comments Calcium Lvl (test code = Calcium Lvl) 8.5 8.5-10.5 [place] 480482-07-26 18:34:00 Test Item Value Reference Range Interpretation Comments AGAP (test code = AGAP) 13.4 10.0-20.0 [place] 480482-07-26 18:34:00 Test Item Value Reference Range Interpretation Comments eGFR (test code = eGFR) 51 [place] 325412-07-26 18:34:00 Test Item Value Reference Range Interpretation Comments WBC (test code = WBC) 13.5 3.7-10.4 [facility] [id number] 18:34:00 Test Item Value Reference Range Interpretation Comments RBC (test code = RBC) 3.63 4.20-5.40 [place] 325412-07-26 18:34:00 Test Item Value Reference Range Interpretation Comments Hgb (test code = Hgb) 8.7 12.0-16.0 [place] 325412-07-26 18:34:00 Test Item Value Reference Range Interpretation Comments Hct (test code = Hct) 28.2 36.0-48.0 [facility] [id number] 18:34:00 Test Item Value Reference Range Interpretation Comments MCV (test code = MCV) 77.5 80.0-98.0 [place] 325412-07-26 18:34:00 Test Item Value Reference Range Interpretation Comments MCH (test code = MCH) 24.0 pg 27.0-31.0 [facility] [id number] 18:34:00 Test Item Value Reference Range Interpretation Comments MCHC (test code = MCHC) 30.9 32.0-36.0 [facility] [id number] 18:34:00 Test Item Value Reference Range Interpretation Comments RDW (test code = RDW) 21.2 11.5-14.5 [facility] [id number] 18:34:00 Test Item Value Reference Range Interpretation Comments Platelet (test code = Platelet) 324 133-450 [facility] [id number] 18:34:00 Test Item Value Reference Range Interpretation Comments MPV (test code = MPV) 7.6 7.4-10.4 [facility] [id number] 18:34:00 Test Item Value Reference Range Interpretation Comments Plt Morph (test code = Normal (06/14/22 1:34 Plt Morph) PM) [facility] CampusD[id number] 18:34:00 Test Item Value Reference Range Interpretation Comments Segs (test code = Segs) 89.0 45.0-75.0 [place] 325412-07-26 18:34:00 Test Item Value Reference Range Interpretation Comments Bands (test code = 3.0 See_Comment [Automat ed message] The Bands) system which ge nerated this result transmit lavon reference range : <=11.0. The reference r hugo was not used to interpr et this result as dionne l/abnormal. [place] [address]-07-26 18:34:00 Test Item Value Reference Range Interpretation Comments Lymphocytes (test code = Lymphocytes) 8.0 20.0-40.0 [place] [address]-07-26 18:34:00 Test Item Value Reference Range Interpretation Comments Monocytes (test code = Monocytes) 0.0 2.0-12.0 [place] [address]-07-26 18:34:00 Test Item Value Reference Range Interpretation Comments Neutrophils # (test code = Neutrophils 12.4 1.5-8.1 #) [place] [address]-07-26 18:34:00 Test Item Value Reference Range Interpretation Comments Lymphocytes # (test code = Lymphocytes 1.1 1.0-5.5 #) [place] [address]-07-26 18:34:00 Test Item Value Reference Range Interpretation Comments Monocytes # (test code 0.0 See_Comment [Aut omated message] The = Monocytes #) system which generated this result tra nsmitted reference range : <=0.8. The reference r hugo was not used to int erpret this result as normal/abnormal . [place] 325412-07-26 18:34:00 Test Item Value Reference Range Interpretation Comments Hypochrom (test code = 1+ (06/14/22 1:34 PM) Hypochrom) [place] 480482-07-26 18:34:00 Test Item Value Reference Range Interpretation Comments Glucose Lvl (test code = Glucose Lvl) 110 70-99 [place] 480482-07-26 18:34:00 Test Item Value Reference Range Interpretation Comments BUN (test code = BUN) 28 7- [place] 480482-07-26 18:34:00 Test Item Value Reference Range Interpretation Comments Creatinine Lvl (test code = Creatinine 1.05 0.50-1.40 Lvl) [place] 480482-07-26 18:34:00 Test Item Value Reference Range Interpretation Comments Sodium Lvl (test code = Sodium Lvl) 132 135-145 [place] 480482-07-26 18:34:00 Test Item Value Reference Range Interpretation Comments Potassium Lvl (test code = Potassium 4.4 3.5-5.1 Lvl) [place] 480482-07-26 18:34:00 Test Item Value Reference Range Interpretation Comments Chloride Lvl (test code = Chloride Lvl) 96 95-109 [place] 480482-07-26 18:34:00 Test Item Value Reference Range Interpretation Comments CO2 (test code = CO2) 27 24-32 [place] [address]-07-26 18:34:00 Test Item Value Reference Range Interpretation Comments Calcium Lvl (test code = Calcium Lvl) 8.5 8.5-10.5 [place] 480482-07-26 18:34:00 Test Item Value Reference Range Interpretation Comments AGAP (test code = AGAP) 13.4 10.0-20.0 [place] 480482-07-26 18:34:00 Test Item Value Reference Range Interpretation Comments eGFR (test code = eGFR) 51 [place] 325412-07-26 18:34:00 Test Item Value Reference Range Interpretation Comments WBC (test code = WBC) 13.5 3.7-10.4 [place] [address]-07-26 18:34:00 Test Item Value Reference Range Interpretation Comments RBC (test code = RBC) 3.63 4.20-5.40 [place] [address]-07-26 18:34:00 Test Item Value Reference Range Interpretation Comments Hgb (test code = Hgb) 8.7 12.0-16.0 [place] [address]-07-26 18:34:00 Test Item Value Reference Range Interpretation Comments Hct (test code = Hct) 28.2 36.0-48.0 [place] [address]-07-26 18:34:00 Test Item Value Reference Range Interpretation Comments MCV (test code = MCV) 77.5 80.0-98.0 [place] [address]-07-26 18:34:00 Test Item Value Reference Range Interpretation Comments MCH (test code = MCH) 24.0 pg 27.0-31.0 [place] [address]-07-26 18:34:00 Test Item Value Reference Range Interpretation Comments MCHC (test code = MCHC) 30.9 32.0-36.0 [place] [address]-07-26 18:34:00 Test Item Value Reference Range Interpretation Comments RDW (test code = RDW) 21.2 11.5-14.5 [place] [address]-07-26 18:34:00 Test Item Value Reference Range Interpretation Comments Platelet (test code = Platelet) 324 133-450 [place] 325412-07-26 18:34:00 Test Item Value Reference Range Interpretation Comments MPV (test code = MPV) 7.6 7.4-10.4 [place] 325412-07-26 18:34:00 Test Item Value Reference Range Interpretation Comments Plt Morph (test code = Normal (06/14/22 1:34 Plt Morph) PM) [place] [address]-07-26 18:34:00 Test Item Value Reference Range Interpretation Comments Segs (test code = Segs) 89.0 45.0-75.0 [place] [address]-07-26 18:34:00 Test Item Value Reference Range Interpretation Comments Bands (test code = 3.0 See_Comment [Automat ed message] The Bands) system which ge nerated this result transmit lavon reference range : <=11.0. The reference r hugo was not used to interpr et this result as dionne l/abnormal. [place] 325412-07-26 18:34:00 Test Item Value Reference Range Interpretation Comments Lymphocytes (test code = Lymphocytes) 8.0 20.0-40.0 [place] [address]-07-26 18:34:00 Test Item Value Reference Range Interpretation Comments Monocytes (test code = Monocytes) 0.0 2.0-12.0 [place] [address]-07-26 18:34:00 Test Item Value Reference Range Interpretation Comments Neutrophils # (test code = Neutrophils 12.4 1.5-8.1 #) [place] [address]-07-26 18:34:00 Test Item Value Reference Range Interpretation Comments Lymphocytes # (test code = Lymphocytes 1.1 1.0-5.5 #) [place] [address]-07-26 18:34:00 Test Item Value Reference Range Interpretation Comments Monocytes # (test code 0.0 See_Comment [Aut omated message] The = Monocytes #) system which generated this result tra nsmitted reference range : <=0.8. The reference r hugo was not used to int erpret this result as normal/abnormal . [place] 325412-07-26 18:34:00 Test Item Value Reference Range Interpretation Comments Hypochrom (test code = 1+ (06/14/22 1:34 PM) Hypochrom) [place] 480482-07-26 18:34:00 Test Item Value Reference Range Interpretation Comments Glucose Lvl (test code = Glucose Lvl) 110 70-99 [place] 480482-07-26 18:34:00 Test Item Value Reference Range Interpretation Comments BUN (test code = BUN) 28 - [place] 480482-07-26 18:34:00 Test Item Value Reference Range Interpretation Comments Creatinine Lvl (test code = Creatinine 1.05 0.50-1.40 Lvl) [place] 480482-07-26 18:34:00 Test Item Value Reference Range Interpretation Comments Sodium Lvl (test code = Sodium Lvl) 132 135-145 [place] 480482-07-26 18:34:00 Test Item Value Reference Range Interpretation Comments Potassium Lvl (test code = Potassium 4.4 3.5-5.1 Lvl) [place] 480482-07-26 18:34:00 Test Item Value Reference Range Interpretation Comments Chloride Lvl (test code = Chloride Lvl) 96 95-109 [place] 480482-07-26 18:34:00 Test Item Value Reference Range Interpretation Comments CO2 (test code = CO2) 27 24-32 [place] 480482-07-26 18:34:00 Test Item Value Reference Range Interpretation Comments Calcium Lvl (test code = Calcium Lvl) 8.5 8.5-10.5 [place] 480482-07-26 18:34:00 Test Item Value Reference Range Interpretation Comments AGAP (test code = AGAP) 13.4 10.0-20.0 [place] 480482-07-26 18:34:00 Test Item Value Reference Range Interpretation Comments eGFR (test code = eGFR) 51 [place] 325412-07-26 18:34:00 Test Item Value Reference Range Interpretation Comments WBC (test code = WBC) 13.5 3.7-10.4 [facility] CampusD[id number] 18:34:00 Test Item Value Reference Range Interpretation Comments RBC (test code = RBC) 3.63 4.20-5.40 [place] 325412-07-26 18:34:00 Test Item Value Reference Range Interpretation Comments Hgb (test code = Hgb) 8.7 12.0-16.0 [place] 325412-07-26 18:34:00 Test Item Value Reference Range Interpretation Comments Hct (test code = Hct) 28.2 36.0-48.0 [facility] [id number] 18:34:00 Test Item Value Reference Range Interpretation Comments MCV (test code = MCV) 77.5 80.0-98.0 [place] 325412-07-26 18:34:00 Test Item Value Reference Range Interpretation Comments MCH (test code = MCH) 24.0 pg 27.0-31.0 [facility] C[id number] 18:34:00 Test Item Value Reference Range Interpretation Comments MCHC (test code = MCHC) 30.9 32.0-36.0 [facility] [id number] 18:34:00 Test Item Value Reference Range Interpretation Comments RDW (test code = RDW) 21.2 11.5-14.5 [facility] CampusHgpukcoRCXTTSBYPE0911-59-07 18:34:00 Test Item Value Reference Range Interpretation Comments Platelet (test code = Platelet) 324 133-450 [facility] [id number] 18:34:00 Test Item Value Reference Range Interpretation Comments MPV (test code = MPV) 7.6 7.4-10.4 [facility] C[id number] 18:34:00 Test Item Value Reference Range Interpretation Comments Plt Morph (test code = Normal (06/14/22 1:34 Plt Morph) PM) [facility] CampusIjikufrAIPHNLBFLT2456-28-28 18:34:00 Test Item Value Reference Range Interpretation Comments Segs (test code = Segs) 89.0 45.0-75.0 [place] 325412-07-26 18:34:00 Test Item Value Reference Range Interpretation Comments Bands (test code = 3.0 See_Comment [Automat ed message] The Bands) system which ge nerated this result transmit lavon reference range : <=11.0. The reference r hugo was not used to interpr et this result as dionne l/abnormal. [place] [address]-07-26 18:34:00 Test Item Value Reference Range Interpretation Comments Lymphocytes (test code = Lymphocytes) 8.0 20.0-40.0 [place] [address]-07-26 18:34:00 Test Item Value Reference Range Interpretation Comments Monocytes (test code = Monocytes) 0.0 2.0-12.0 [place] [address]-07-26 18:34:00 Test Item Value Reference Range Interpretation Comments Neutrophils # (test code = Neutrophils 12.4 1.5-8.1 #) [place] [address]-07-26 18:34:00 Test Item Value Reference Range Interpretation Comments Lymphocytes # (test code = Lymphocytes 1.1 1.0-5.5 #) [place] [address]-07-26 18:34:00 Test Item Value Reference Range Interpretation Comments Monocytes # (test code 0.0 See_Comment [Aut omated message] The = Monocytes #) system which generated this result tra nsmitted reference range : <=0.8. The reference r hugo was not used to int erpret this result as normal/abnormal . [place] 325412-07-26 18:34:00 Test Item Value Reference Range Interpretation Comments Hypochrom (test code = 1+ (06/14/22 1:34 PM) Hypochrom) [place] 480482-07-26 18:34:00 Test Item Value Reference Range Interpretation Comments Glucose Lvl (test code = Glucose Lvl) 110 70-99 [place] 480482-07-26 18:34:00 Test Item Value Reference Range Interpretation Comments BUN (test code = BUN) 28 7- [place] 480482-07-26 18:34:00 Test Item Value Reference Range Interpretation Comments Creatinine Lvl (test code = Creatinine 1.05 0.50-1.40 Lvl) [place] 480482-07-26 18:34:00 Test Item Value Reference Range Interpretation Comments Sodium Lvl (test code = Sodium Lvl) 132 135-145 [place] 480482-07-26 18:34:00 Test Item Value Reference Range Interpretation Comments Potassium Lvl (test code = Potassium 4.4 3.5-5.1 Lvl) [place] 480482-07-26 18:34:00 Test Item Value Reference Range Interpretation Comments Chloride Lvl (test code = Chloride Lvl) 96 95-109 [place] 480482-07-26 18:34:00 Test Item Value Reference Range Interpretation Comments CO2 (test code = CO2) 27 24-32 [place] [address]-07-26 18:34:00 Test Item Value Reference Range Interpretation Comments Calcium Lvl (test code = Calcium Lvl) 8.5 8.5-10.5 [place] 480482-07-26 18:34:00 Test Item Value Reference Range Interpretation Comments AGAP (test code = AGAP) 13.4 10.0-20.0 [place] 480482-07-26 18:34:00 Test Item Value Reference Range Interpretation Comments eGFR (test code = eGFR) 51 [place] 325412-07-26 18:34:00 Test Item Value Reference Range Interpretation Comments WBC (test code = WBC) 13.5 3.7-10.4 [place] [address]-07-26 18:34:00 Test Item Value Reference Range Interpretation Comments RBC (test code = RBC) 3.63 4.20-5.40 [place] [address]-07-26 18:34:00 Test Item Value Reference Range Interpretation Comments Hgb (test code = Hgb) 8.7 12.0-16.0 [place] [address]-07-26 18:34:00 Test Item Value Reference Range Interpretation Comments Hct (test code = Hct) 28.2 36.0-48.0 [place] [address]-07-26 18:34:00 Test Item Value Reference Range Interpretation Comments MCV (test code = MCV) 77.5 80.0-98.0 [place] [address]-07-26 18:34:00 Test Item Value Reference Range Interpretation Comments MCH (test code = MCH) 24.0 pg 27.0-31.0 [place] [address]-07-26 18:34:00 Test Item Value Reference Range Interpretation Comments MCHC (test code = MCHC) 30.9 32.0-36.0 [place] [address]-07-26 18:34:00 Test Item Value Reference Range Interpretation Comments RDW (test code = RDW) 21.2 11.5-14.5 [place] [address]-07-26 18:34:00 Test Item Value Reference Range Interpretation Comments Platelet (test code = Platelet) 324 133-450 [place] 325412-07-26 18:34:00 Test Item Value Reference Range Interpretation Comments MPV (test code = MPV) 7.6 7.4-10.4 [place] 325412-07-26 18:34:00 Test Item Value Reference Range Interpretation Comments Plt Morph (test code = Normal (06/14/22 1:34 Plt Morph) PM) [place] [address]-07-26 18:34:00 Test Item Value Reference Range Interpretation Comments Segs (test code = Segs) 89.0 45.0-75.0 [place] [address]-07-26 18:34:00 Test Item Value Reference Range Interpretation Comments Bands (test code = 3.0 See_Comment [Automat ed message] The Bands) system which ge nerated this result transmit lavon reference range : <=11.0. The reference r hugo was not used to interpr et this result as dionne l/abnormal. [place] 325412-07-26 18:34:00 Test Item Value Reference Range Interpretation Comments Lymphocytes (test code = Lymphocytes) 8.0 20.0-40.0 [place] [address]-07-26 18:34:00 Test Item Value Reference Range Interpretation Comments Monocytes (test code = Monocytes) 0.0 2.0-12.0 [place] [address]-07-26 18:34:00 Test Item Value Reference Range Interpretation Comments Neutrophils # (test code = Neutrophils 12.4 1.5-8.1 #) [place] [address]-07-26 18:34:00 Test Item Value Reference Range Interpretation Comments Lymphocytes # (test code = Lymphocytes 1.1 1.0-5.5 #) [place] [address]-07-26 18:34:00 Test Item Value Reference Range Interpretation Comments Monocytes # (test code 0.0 See_Comment [Aut omated message] The = Monocytes #) system which generated this result tra nsmitted reference range : <=0.8. The reference r hugo was not used to int erpret this result as normal/abnormal . [place] 325412-07-26 18:34:00 Test Item Value Reference Range Interpretation Comments Hypochrom (test code = 1+ (06/14/22 1:34 PM) Hypochrom) [place] 480482-07-26 18:34:00 Test Item Value Reference Range Interpretation Comments Glucose Lvl (test code = Glucose Lvl) 110 70-99 [place] 480482-07-26 18:34:00 Test Item Value Reference Range Interpretation Comments BUN (test code = BUN) 28 - [place] 480482-07-26 18:34:00 Test Item Value Reference Range Interpretation Comments Creatinine Lvl (test code = Creatinine 1.05 0.50-1.40 Lvl) [place] 480482-07-26 18:34:00 Test Item Value Reference Range Interpretation Comments Sodium Lvl (test code = Sodium Lvl) 132 135-145 [place] 480482-07-26 18:34:00 Test Item Value Reference Range Interpretation Comments Potassium Lvl (test code = Potassium 4.4 3.5-5.1 Lvl) [place] 480482-07-26 18:34:00 Test Item Value Reference Range Interpretation Comments Chloride Lvl (test code = Chloride Lvl) 96 95-109 [place] 480482-07-26 18:34:00 Test Item Value Reference Range Interpretation Comments CO2 (test code = CO2) 27 24-32 [place] 480482-07-26 18:34:00 Test Item Value Reference Range Interpretation Comments Calcium Lvl (test code = Calcium Lvl) 8.5 8.5-10.5 [place] 480482-07-26 18:34:00 Test Item Value Reference Range Interpretation Comments AGAP (test code = AGAP) 13.4 10.0-20.0 [place] 480482-07-26 18:34:00 Test Item Value Reference Range Interpretation Comments eGFR (test code = eGFR) 51 [place] 325412-07-26 18:34:00 Test Item Value Reference Range Interpretation Comments WBC (test code = WBC) 13.5 3.7-10.4 [id number] 18:34:00 Test Item Value Reference Range Interpretation Comments RBC (test code = RBC) 3.63 4.20-5.40 [place] 325412-07-26 18:34:00 Test Item Value Reference Range Interpretation Comments Hgb (test code = Hgb) 8.7 12.0-16.0 [place] 325412-07-26 18:34:00 Test Item Value Reference Range Interpretation Comments Hct (test code = Hct) 28.2 36.0-48.0 [facility] [id number] 18:34:00 Test Item Value Reference Range Interpretation Comments MCV (test code = MCV) 77.5 80.0-98.0 [place] 325412-07-26 18:34:00 Test Item Value Reference Range Interpretation Comments MCH (test code = MCH) 24.0 pg 27.0-31.0 [facility] [id number] 18:34:00 Test Item Value Reference Range Interpretation Comments MCHC (test code = MCHC) 30.9 32.0-36.0 [facility] [id number] 18:34:00 Test Item Value Reference Range Interpretation Comments RDW (test code = RDW) 21.2 11.5-14.5 [facility] [id number] 18:34:00 Test Item Value Reference Range Interpretation Comments Platelet (test code = Platelet) 324 133-450 [facility] CampusCaqchamCIBMVLOGSA6500-45-27 18:34:00 Test Item Value Reference Range Interpretation Comments MPV (test code = MPV) 7.6 7.4-10.4 [facility] [id number] 18:34:00 Test Item Value Reference Range Interpretation Comments Plt Morph (test code = Normal (06/14/22 1:34 Plt Morph) PM) [facility] [id number] 18:34:00 Test Item Value Reference Range Interpretation Comments Segs (test code = Segs) 89.0 45.0-75.0 [place] 325412-07-26 18:34:00 Test Item Value Reference Range Interpretation Comments Bands (test code = 3.0 See_Comment [Automat ed message] The Bands) system which ge nerated this result transmit lavon reference range : <=11.0. The reference r hugo was not used to interpr et this result as dionne l/abnormal. [facility] [id number] 18:34:00 Test Item Value Reference Range Interpretation Comments Lymphocytes (test code = Lymphocytes) 8.0 20.0-40.0 [place] 325412-07-26 18:34:00 Test Item Value Reference Range Interpretation Comments Monocytes (test code = Monocytes) 0.0 2.0-12.0 [place] 325412-07-26 18:34:00 Test Item Value Reference Range Interpretation Comments Neutrophils # (test code = Neutrophils 12.4 1.5-8.1 #) [place] 325412-07-26 18:34:00 Test Item Value Reference Range Interpretation Comments Lymphocytes # (test code = Lymphocytes 1.1 1.0-5.5 #) [place] 325412-07-26 18:34:00 Test Item Value Reference Range Interpretation Comments Monocytes # (test code 0.0 See_Comment [Aut omated message] The = Monocytes #) system which generated this result tra nsmitted reference range : <=0.8. The reference r hugo was not used to int erpret this result as normal/abnormal . [facility] [id number] 18:34:00 Test Item Value Reference Range Interpretation Comments Hypochrom (test code = 1+ (06/14/22 1:34 PM) Hypochrom) [facility]2022-07-25 15:00:00 Test Item Value Reference Range Interpretation Comments Albumin BF (test code = Albumin BF) 0.6 [facility]2022-07-25 15:00:00 Test Item Value Reference Range Interpretation Comments Alb BF Type (test Pleural *NA*(06/13/22 code = Alb BF Type) 10:00 AM) [facility]2022-07-25 15:00:00 Test Item Value Reference Range Interpretation Comments CellCnt BF Type (test Thorac[place] (06/13/22 10:00 code = CellCnt BF AM) Type) [facility]2022-07-25 15:00:00 Test Item Value Reference Range Interpretation Comments Color BF (test code = Yellow (06/13/22 10:00 Color BF) AM) [facility]2022-07-25 15:00:00 Test Item Value Reference Range Interpretation Comments Clarity BF (test code = Clear (06/13/22 10:00 Clarity BF) AM) [facility]2022-07-25 15:00:00 Test Item Value Reference Range Interpretation Comments Supernat BF (test code = Yellow *ABN*(06/13/22 Supernat BF) 10:00 AM) [facility]2022-07-25 15:00:00 Test Item Value Reference Range Interpretation Comments Nucleated Cells BF (test code = 273 Nucleated Cells BF) [facility]2022-07-25 15:00:00 Test Item Value Reference Range Interpretation Comments RBC BF (test code = RBC BF) 419 [facility]2022-07-25 15:00:00 Test Item Value Reference Range Interpretation Comments Neutrophils BF (test code = Neutrophils [address]) [facility]2022-07-25 15:00:00 Test Item Value Reference Range Interpretation Comments Lymph BF (test code = Lymph BF) 36 [facility]2022-07-25 15:00:00 Test Item Value Reference Range Interpretation Comments Macrophage BF (test code = Macrophage [address]) [facility]2022-07-25 15:00:00 Test Item Value Reference Range Interpretation Comments Meso BF (test code = Meso BF) 6 [facility]2022-07-25 15:00:00 Test Item Value Reference Range Interpretation Comments Comment BF (test Differential confirmed. code = Comment BF) mesothlial cells and mixed inflammation. performed by Dr. Rosendo Chapa [facility]2022-07-25 15:00:00 Test Item Value Reference Range Interpretation Comments Glucose BF (test code = Glucose BF) 154 [facility]2022-07-25 15:00:00 Test Item Value Reference Range Interpretation Comments Gluc BF Type (test Pleural *NA*(06/13/22 code = Gluc BF Type) 10:00 AM) [facility]2022-07-25 15:00:00 Test Item Value Reference Range Interpretation Comments LDH BF (test code = LDH BF) 74 [facility]2022-07-25 15:00:00 Test Item Value Reference Range Interpretation Comments LDH BF Type (test Pleural *NA*(06/13/22 code = LDH BF Type) 10:00 AM) [id number] 15:00:00 Test Item Value Reference Range Interpretation Comments pH BF Type (test code Pleural (06/13/22 10:00 = pH BF Type) AM) [facility] [id number] 15:00:00 Test Item Value Reference Range Interpretation Comments pH BF (test code = pH BF) 8.00 1 [facility] [id number] 15:00:00 Test Item Value Reference Range Interpretation Comments Protein BF (test code = Protein BF) 1.0 [facility] [id number] 15:00:00 Test Item Value Reference Range Interpretation Comments Prot BF Type (test Pleural *NA*(06/13/22 code = Prot BF Type) 10:00 AM) [facility] [id number] 15:00:00 Test Item Value Reference Range Interpretation Comments Gram Stain Report Few WBC's No Organisms (test code = Gram Seen Stain Report) [facility] Aspirate/Body Fluid/[id number] 15:00:00 Test Item Value Reference Range Interpretation Comments Culture: Aspirate/Body Fluid/Tissue No Growth (test code = Culture: Aspirate/Body Fluid/Tissue) [facility]2022-07-25 15:00:00 Test Item Value Reference Range Interpretation Comments Albumin BF (test code = Albumin BF) 0.6 [facility]2022-07-25 15:00:00 Test Item Value Reference Range Interpretation Comments Alb BF Type (test Pleural *NA*(06/13/22 code = Alb BF Type) 10:00 AM) [facility] [id number] 15:00:00 Test Item Value Reference Range Interpretation Comments CellCnt BF Type (test Thorac[place] (06/13/22 10:00 code = CellCnt BF AM) Type) [facility] [id number] 15:00:00 Test Item Value Reference Range Interpretation Comments Color BF (test code = Yellow (06/13/22 10:00 Color BF) AM) [facility] [id number] 15:00:00 Test Item Value Reference Range Interpretation Comments Clarity BF (test code = Clear (06/13/22 10:00 Clarity BF) AM) [facility]2022-07-25 15:00:00 Test Item Value Reference Range Interpretation Comments Supernat BF (test code = Yellow *ABN*(06/13/22 Supernat BF) 10:00 AM) [facility]2022-07-25 15:00:00 Test Item Value Reference Range Interpretation Comments Nucleated Cells BF (test code = 273 Nucleated Cells BF) [facility]2022-07-25 15:00:00 Test Item Value Reference Range Interpretation Comments RBC BF (test code = RBC BF) 419 [facility]2022-07-25 15:00:00 Test Item Value Reference Range Interpretation Comments Neutrophils BF (test code = Neutrophils [address]) [facility]2022-07-25 15:00:00 Test Item Value Reference Range Interpretation Comments Lymph BF (test code = Lymph BF) 36 [facility]2022-07-25 15:00:00 Test Item Value Reference Range Interpretation Comments Macrophage BF (test code = Macrophage [address]) [facility]2022-07-25 15:00:00 Test Item Value Reference Range Interpretation Comments Meso BF (test code = Meso BF) 6 [facility]2022-07-25 15:00:00 Test Item Value Reference Range Interpretation Comments Comment BF (test Differential confirmed. code = Comment BF) mesothlial cells and mixed inflammation. performed by Dr. Rosendo Chapa [facility]2022-07-25 15:00:00 Test Item Value Reference Range Interpretation Comments Glucose BF (test code = Glucose BF) 154 [facility]2022-07-25 15:00:00 Test Item Value Reference Range Interpretation Comments Gluc BF Type (test Pleural *NA*(06/13/22 code = Gluc BF Type) 10:00 AM) [facility]2022-07-25 15:00:00 Test Item Value Reference Range Interpretation Comments LDH BF (test code = LDH BF) 74 [facility]2022-07-25 15:00:00 Test Item Value Reference Range Interpretation Comments LDH BF Type (test Pleural *NA*(06/13/22 code = LDH BF Type) 10:00 AM) [facility]2022-07-25 15:00:00 Test Item Value Reference Range Interpretation Comments pH BF Type (test code Pleural (06/13/22 10:00 = pH BF Type) AM) [facility] [id number] 15:00:00 Test Item Value Reference Range Interpretation Comments pH BF (test code = pH BF) 8.00 1 [facility] [id number] 15:00:00 Test Item Value Reference Range Interpretation Comments Protein BF (test code = Protein BF) 1.0 [facility] [id number] 15:00:00 Test Item Value Reference Range Interpretation Comments Prot BF Type (test Pleural *NA*(06/13/22 code = Prot BF Type) 10:00 AM) [facility] [id number] 15:00:00 Test Item Value Reference Range Interpretation Comments Gram Stain Report Few WBC's No Organisms (test code = Gram Seen Stain Report) [facility] Aspirate/Body Fluid/[id number] 15:00:00 Test Item Value Reference Range Interpretation Comments Culture: Aspirate/Body Fluid/Tissue No Growth (test code = Culture: Aspirate/Body Fluid/Tissue) [facility] [id number] 15:00:00 Test Item Value Reference Range Interpretation Comments Albumin BF (test code = Albumin BF) 0.6 [facility]2022-07-25 15:00:00 Test Item Value Reference Range Interpretation Comments Alb BF Type (test Pleural *NA*(06/13/22 code = Alb BF Type) 10:00 AM) [facility]2022-07-25 15:00:00 Test Item Value Reference Range Interpretation Comments CellCnt BF Type (test Thorac[place] (06/13/22 10:00 code = CellCnt BF AM) Type) [facility]2022-07-25 15:00:00 Test Item Value Reference Range Interpretation Comments Color BF (test code = Yellow (06/13/22 10:00 Color BF) AM) [facility]2022-07-25 15:00:00 Test Item Value Reference Range Interpretation Comments Clarity BF (test code = Clear (06/13/22 10:00 Clarity BF) AM) [facility]2022-07-25 15:00:00 Test Item Value Reference Range Interpretation Comments Supernat BF (test code = Yellow *ABN*(06/13/22 Supernat BF) 10:00 AM) [facility]2022-07-25 15:00:00 Test Item Value Reference Range Interpretation Comments Nucleated Cells BF (test code = 273 Nucleated Cells BF) [facility]2022-07-25 15:00:00 Test Item Value Reference Range Interpretation Comments RBC BF (test code = RBC BF) 419 [facility]2022-07-25 15:00:00 Test Item Value Reference Range Interpretation Comments Neutrophils BF (test code = Neutrophils [address]) [facility]2022-07-25 15:00:00 Test Item Value Reference Range Interpretation Comments Lymph BF (test code = Lymph BF) 36 [facility]2022-07-25 15:00:00 Test Item Value Reference Range Interpretation Comments Macrophage BF (test code = Macrophage [address]) [facility]2022-07-25 15:00:00 Test Item Value Reference Range Interpretation Comments Meso BF (test code = Meso BF) 6 [facility]2022-07-25 15:00:00 Test Item Value Reference Range Interpretation Comments Comment BF (test Differential confirmed. code = Comment BF) mesothlial cells and mixed inflammation. performed by Dr. Rosendo Chapa [facility]2022-07-25 15:00:00 Test Item Value Reference Range Interpretation Comments Glucose BF (test code = Glucose BF) 154 [facility]2022-07-25 15:00:00 Test Item Value Reference Range Interpretation Comments Gluc BF Type (test Pleural *NA*(06/13/22 code = Gluc BF Type) 10:00 AM) [facility]2022-07-25 15:00:00 Test Item Value Reference Range Interpretation Comments LDH BF (test code = LDH BF) 74 [facility]2022-07-25 15:00:00 Test Item Value Reference Range Interpretation Comments LDH BF Type (test Pleural *NA*(06/13/22 code = LDH BF Type) 10:00 AM) [facility]2022-07-25 15:00:00 Test Item Value Reference Range Interpretation Comments pH BF Type (test code Pleural (06/13/22 10:00 = pH BF Type) AM) [facility]2022-07-25 15:00:00 Test Item Value Reference Range Interpretation Comments pH BF (test code = pH BF) 8.00 1 [facility] [id number] 15:00:00 Test Item Value Reference Range Interpretation Comments Protein BF (test code = Protein BF) 1.0 [facility] [id number] 15:00:00 Test Item Value Reference Range Interpretation Comments Prot BF Type (test Pleural *NA*(06/13/22 code = Prot BF Type) 10:00 AM) [facility] [id number] 15:00:00 Test Item Value Reference Range Interpretation Comments Gram Stain Report Few WBC's No Organisms (test code = Gram Seen Stain Report) [facility] Aspirate/Body Fluid/[id number] 15:00:00 Test Item Value Reference Range Interpretation Comments Culture: Aspirate/Body Fluid/Tissue No Growth (test code = Culture: Aspirate/Body Fluid/Tissue) [facility]2022-07-25 15:00:00 Test Item Value Reference Range Interpretation Comments Albumin BF (test code = Albumin BF) 0.6 [facility]2022-07-25 15:00:00 Test Item Value Reference Range Interpretation Comments Alb BF Type (test Pleural *NA*(06/13/22 code = Alb BF Type) 10:00 AM) [facility]2022-07-25 15:00:00 Test Item Value Reference Range Interpretation Comments CellCnt BF Type (test Thor[place] (06/13/22 10:00 code = CellCnt BF AM) Type) [facility]2022-07-25 15:00:00 Test Item Value Reference Range Interpretation Comments Color BF (test code = Yellow (06/13/22 10:00 Color BF) AM) [facility]2022-07-25 15:00:00 Test Item Value Reference Range Interpretation Comments Clarity BF (test code = Clear (06/13/22 10:00 Clarity BF) AM) [facility]2022-07-25 15:00:00 Test Item Value Reference Range Interpretation Comments Supernat BF (test code = Yellow *ABN*(06/13/22 Supernat BF) 10:00 AM) [facility]2022-07-25 15:00:00 Test Item Value Reference Range Interpretation Comments Nucleated Cells BF (test code = 273 Nucleated Cells BF) [facility]2022-07-25 15:00:00 Test Item Value Reference Range Interpretation Comments RBC BF (test code = RBC BF) 419 [facility]2022-07-25 15:00:00 Test Item Value Reference Range Interpretation Comments Neutrophils BF (test code = Neutrophils 10 [address]) [facility]2022-07-25 15:00:00 Test Item Value Reference Range Interpretation Comments Lymph BF (test code = Lymph BF) 36 [facility]2022-07-25 15:00:00 Test Item Value Reference Range Interpretation Comments Macrophage BF (test code = Macrophage [address]) [facility]2022-07-25 15:00:00 Test Item Value Reference Range Interpretation Comments Meso BF (test code = Meso BF) 6 [facility]2022-07-25 15:00:00 Test Item Value Reference Range Interpretation Comments Comment BF (test Differential confirmed. code = Comment BF) mesothlial cells and mixed inflammation. performed by Dr. Rosendo Chapa [facility]2022-07-25 15:00:00 Test Item Value Reference Range Interpretation Comments Glucose BF (test code = Glucose BF) 154 [facility]2022-07-25 15:00:00 Test Item Value Reference Range Interpretation Comments Gluc BF Type (test Pleural *NA*(06/13/22 code = Gluc BF Type) 10:00 AM) [facility]2022-07-25 15:00:00 Test Item Value Reference Range Interpretation Comments LDH BF (test code = LDH BF) 74 [facility]2022-07-25 15:00:00 Test Item Value Reference Range Interpretation Comments LDH BF Type (test Pleural *NA*(06/13/22 code = LDH BF Type) 10:00 AM) [facility]2022-07-25 15:00:00 Test Item Value Reference Range Interpretation Comments pH BF Type (test code Pleural (06/13/22 10:00 = pH BF Type) AM) [facility]2022-07-25 15:00:00 Test Item Value Reference Range Interpretation Comments pH BF (test code = pH BF) 8.00 1 [facility] [id number] 15:00:00 Test Item Value Reference Range Interpretation Comments Protein BF (test code = Protein BF) 1.0 [facility] [id number] 15:00:00 Test Item Value Reference Range Interpretation Comments Prot BF Type (test Pleural *NA*(06/13/22 code = Prot BF Type) 10:00 AM) [facility] [id number] 15:00:00 Test Item Value Reference Range Interpretation Comments Gram Stain Report Few WBC's No Organisms (test code = Gram Seen Stain Report) [facility] HospitalCulture: Aspirate/Body Fluid/[id number] 15:00:00 Test Item Value Reference Range Interpretation Comments Culture: Aspirate/Body Fluid/Tissue No Growth (test code = Culture: Aspirate/Body Fluid/Tissue) [facility]2022-07-25 15:00:00 Test Item Value Reference Range Interpretation Comments Albumin BF (test code = Albumin BF) 0.6 [facility]2022-07-25 15:00:00 Test Item Value Reference Range Interpretation Comments Alb BF Type (test Pleural *NA*(06/13/22 code = Alb BF Type) 10:00 AM) [facility]2022-07-25 15:00:00 Test Item Value Reference Range Interpretation Comments CellCnt BF Type (test Thoracen (06/13/22 10:00 code = CellCnt BF AM) Type) [facility]2022-07-25 15:00:00 Test Item Value Reference Range Interpretation Comments Color BF (test code = Yellow (06/13/22 10:00 Color BF) AM) [facility]2022-07-25 15:00:00 Test Item Value Reference Range Interpretation Comments Clarity BF (test code = Clear (06/13/22 10:00 Clarity BF) AM) [facility]2022-07-25 15:00:00 Test Item Value Reference Range Interpretation Comments Supernat BF (test code = Yellow *ABN*(06/13/22 Supernat BF) 10:00 AM) [facility]2022-07-25 15:00:00 Test Item Value Reference Range Interpretation Comments Nucleated Cells BF (test code = 273 Nucleated Cells BF) [facility]2022-07-25 15:00:00 Test Item Value Reference Range Interpretation Comments RBC BF (test code = RBC BF) 419 [facility]2022-07-25 15:00:00 Test Item Value Reference Range Interpretation Comments Neutrophils BF (test code = Neutrophils 10 BF) [facility] [id number] 15:00:00 Test Item Value Reference Range Interpretation Comments Lymph BF (test code = Lymph BF) 36 [facility] [id number] 15:00:00 Test Item Value Reference Range Interpretation Comments Macrophage BF (test code = Macrophage 48 BF) [facility] [id number] 15:00:00 Test Item Value Reference Range Interpretation Comments Meso BF (test code = Meso BF) 6 [facility] [id number] 15:00:00 Test Item Value Reference Range Interpretation Comments Comment BF (test Differential confirmed. code = Comment BF) mesothlial cells and mixed inflammation. performed by Dr. Rosendo Chapa [facility] [id number] 15:00:00 Test Item Value Reference Range Interpretation Comments Glucose BF (test code = Glucose BF) 154 [facility] [id number] 15:00:00 Test Item Value Reference Range Interpretation Comments Gluc BF Type (test Pleural *NA*(06/13/22 code = Gluc BF Type) 10:00 AM) [facility] [id number] 15:00:00 Test Item Value Reference Range Interpretation Comments LDH BF (test code = LDH BF) 74 [facility] [id number] 15:00:00 Test Item Value Reference Range Interpretation Comments LDH BF Type (test Pleural *NA*(06/13/22 code = LDH BF Type) 10:00 AM) [facility] [employer] [id number] 15:00:00 Test Item Value Reference Range Interpretation Comments pH BF Type (test code Pleural (06/13/22 10:00 = pH BF Type) AM) [facility] [id number] 15:00:00 Test Item Value Reference Range Interpretation Comments pH BF (test code = pH BF) 8.00 1 [facility] [id number] 15:00:00 Test Item Value Reference Range Interpretation Comments Protein BF (test code = Protein BF) 1.0 [facility] [id number] 15:00:00 Test Item Value Reference Range Interpretation Comments Prot BF Type (test Pleural *NA*(06/13/22 code = Prot BF Type) 10:00 AM) [facility] [id number] 15:00:00 Test Item Value Reference Range Interpretation Comments Gram Stain Report Few WBC's No Organisms (test code = Gram Seen Stain Report) [facility] HospitalCulture: Aspirate/Body Fluid/[id number] 15:00:00 Test Item Value Reference Range Interpretation Comments Culture: Aspirate/Body Fluid/Tissue No Growth (test code = Culture: Aspirate/Body Fluid/Tissue) [facility]2022-07-25 15:00:00 Test Item Value Reference Range Interpretation Comments Albumin BF (test code = Albumin BF) 0.6 [facility]2022-07-25 15:00:00 Test Item Value Reference Range Interpretation Comments Alb BF Type (test Pleural *NA*(06/13/22 code = Alb BF Type) 10:00 AM) [facility]2022-07-25 15:00:00 Test Item Value Reference Range Interpretation Comments CellCnt BF Type (test Thoracen (06/13/22 10:00 code = CellCnt BF AM) Type) [facility]2022-07-25 15:00:00 Test Item Value Reference Range Interpretation Comments Color BF (test code = Yellow (06/13/22 10:00 Color BF) AM) [facility]2022-07-25 15:00:00 Test Item Value Reference Range Interpretation Comments Clarity BF (test code = Clear (06/13/22 10:00 Clarity BF) AM) [facility]2022-07-25 15:00:00 Test Item Value Reference Range Interpretation Comments Supernat BF (test code = Yellow *ABN*(06/13/22 Supernat BF) 10:00 AM) [facility]2022-07-25 15:00:00 Test Item Value Reference Range Interpretation Comments Nucleated Cells BF (test code = 273 Nucleated Cells BF) [facility]2022-07-25 15:00:00 Test Item Value Reference Range Interpretation Comments RBC BF (test code = RBC BF) 419 [facility]2022-07-25 15:00:00 Test Item Value Reference Range Interpretation Comments Neutrophils BF (test code = Neutrophils 10 [address]) [facility]2022-07-25 15:00:00 Test Item Value Reference Range Interpretation Comments Lymph BF (test code = Lymph BF) 36 [facility]2022-07-25 15:00:00 Test Item Value Reference Range Interpretation Comments Macrophage BF (test code = Macrophage 48 BF) [facility] [id number] 15:00:00 Test Item Value Reference Range Interpretation Comments Meso BF (test code = Meso BF) 6 [facility] [id number] 15:00:00 Test Item Value Reference Range Interpretation Comments Comment BF (test Differential confirmed. code = Comment BF) mesothlial cells and mixed inflammation. performed by Dr. Rosendo Chapa [facility] [id number] 15:00:00 Test Item Value Reference Range Interpretation Comments Glucose BF (test code = Glucose BF) 154 [facility] [id number] 15:00:00 Test Item Value Reference Range Interpretation Comments Gluc BF Type (test Pleural *NA*(06/13/22 code = Gluc BF Type) 10:00 AM) [facility] [id number] 15:00:00 Test Item Value Reference Range Interpretation Comments LDH BF (test code = LDH BF) 74 [facility] [id number] 15:00:00 Test Item Value Reference Range Interpretation Comments LDH BF Type (test Pleural *NA*(06/13/22 code = LDH BF Type) 10:00 AM) [facility] [id number] 15:00:00 Test Item Value Reference Range Interpretation Comments pH BF Type (test code Pleural (06/13/22 10:00 = pH BF Type) AM) [facility] [id number] 15:00:00 Test Item Value Reference Range Interpretation Comments pH BF (test code = pH BF) 8.00 1 [facility] [id number] 15:00:00 Test Item Value Reference Range Interpretation Comments Protein BF (test code = Protein BF) 1.0 [facility] [id number] 15:00:00 Test Item Value Reference Range Interpretation Comments Prot BF Type (test Pleural *NA*(06/13/22 code = Prot BF Type) 10:00 AM) [facility] [id number] 15:00:00 Test Item Value Reference Range Interpretation Comments Gram Stain Report Few WBC's No Organisms (test code = Gram Seen Stain Report) [facility] HospitalCulture: Aspirate/Body Fluid/[id number] 15:00:00 Test Item Value Reference Range Interpretation Comments Culture: Aspirate/Body Fluid/Tissue No Growth (test code = Culture: Aspirate/Body Fluid/Tissue) [facility]2022-07-25 15:00:00 Test Item Value Reference Range Interpretation Comments Albumin BF (test code = Albumin BF) 0.6 [facility]2022-07-25 15:00:00 Test Item Value Reference Range Interpretation Comments Alb BF Type (test Pleural *NA*(06/13/22 code = Alb BF Type) 10:00 AM) [facility]2022-07-25 15:00:00 Test Item Value Reference Range Interpretation Comments CellCnt BF Type (test Thoracen (06/13/22 10:00 code = CellCnt BF AM) Type) [facility]2022-07-25 15:00:00 Test Item Value Reference Range Interpretation Comments Color BF (test code = Yellow (06/13/22 10:00 Color BF) AM) [facility]2022-07-25 15:00:00 Test Item Value Reference Range Interpretation Comments Clarity BF (test code = Clear (06/13/22 10:00 Clarity BF) AM) [facility]2022-07-25 15:00:00 Test Item Value Reference Range Interpretation Comments Supernat BF (test code = Yellow *ABN*(06/13/22 Supernat BF) 10:00 AM) [facility]2022-07-25 15:00:00 Test Item Value Reference Range Interpretation Comments Nucleated Cells BF (test code = 273 Nucleated Cells BF) [facility]2022-07-25 15:00:00 Test Item Value Reference Range Interpretation Comments RBC BF (test code = RBC BF) 419 [facility]2022-07-25 15:00:00 Test Item Value Reference Range Interpretation Comments Neutrophils BF (test code = Neutrophils 10 BF) [facility]2022-07-25 15:00:00 Test Item Value Reference Range Interpretation Comments Lymph BF (test code = Lymph BF) 36 [facility]2022-07-25 15:00:00 Test Item Value Reference Range Interpretation Comments Macrophage BF (test code = Macrophage 48 BF) [facility]2022-07-25 15:00:00 Test Item Value Reference Range Interpretation Comments Meso BF (test code = Meso BF) 6 [facility] [id number] 15:00:00 Test Item Value Reference Range Interpretation Comments Comment BF (test Differential confirmed. code = Comment BF) mesothlial cells and mixed inflammation. performed by Dr. Rosendo Chapa [facility] [id number] 15:00:00 Test Item Value Reference Range Interpretation Comments Glucose BF (test code = Glucose BF) 154 [facility] [id number] 15:00:00 Test Item Value Reference Range Interpretation Comments Gluc BF Type (test Pleural *NA*(06/13/22 code = Gluc BF Type) 10:00 AM) [facility] [id number] 15:00:00 Test Item Value Reference Range Interpretation Comments LDH BF (test code = LDH BF) 74 [facility] [id number] 15:00:00 Test Item Value Reference Range Interpretation Comments LDH BF Type (test Pleural *NA*(06/13/22 code = LDH BF Type) 10:00 AM) [facility] [id number] 15:00:00 Test Item Value Reference Range Interpretation Comments pH BF Type (test code Pleural (06/13/22 10:00 = pH BF Type) AM) [facility]2022-07-25 15:00:00 Test Item Value Reference Range Interpretation Comments pH BF (test code = pH BF) 8.00 1 [facility] [id number] 15:00:00 Test Item Value Reference Range Interpretation Comments Protein BF (test code = Protein BF) 1.0 [facility] [id number] 15:00:00 Test Item Value Reference Range Interpretation Comments Prot BF Type (test Pleural *NA*(06/13/22 code = Prot BF Type) 10:00 AM) [facility] [id number] 15:00:00 Test Item Value Reference Range Interpretation Comments Gram Stain Report Few WBC's No Organisms (test code = Gram Seen Stain Report) [facility] HospitalCulture: Aspirate/Body Fluid/[id number] 15:00:00 Test Item Value Reference Range Interpretation Comments Culture: Aspirate/Body Fluid/Tissue No Growth (test code = Culture: Aspirate/Body Fluid/Tissue) [facility]2022-07-25 15:00:00 Test Item Value Reference Range Interpretation Comments Albumin BF (test code = Albumin BF) 0.6 [facility]2022-07-25 15:00:00 Test Item Value Reference Range Interpretation Comments Alb BF Type (test Pleural *NA*(06/13/22 code = Alb BF Type) 10:00 AM) [facility]2022-07-25 15:00:00 Test Item Value Reference Range Interpretation Comments CellCnt BF Type (test Thoracen (06/13/22 10:00 code = CellCnt BF AM) Type) [facility]2022-07-25 15:00:00 Test Item Value Reference Range Interpretation Comments Color BF (test code = Yellow (06/13/22 10:00 Color BF) AM) [facility]2022-07-25 15:00:00 Test Item Value Reference Range Interpretation Comments Clarity BF (test code = Clear (06/13/22 10:00 Clarity BF) AM) [facility]2022-07-25 15:00:00 Test Item Value Reference Range Interpretation Comments Supernat BF (test code = Yellow *ABN*(06/13/22 Supernat BF) 10:00 AM) [facility]2022-07-25 15:00:00 Test Item Value Reference Range Interpretation Comments Nucleated Cells BF (test code = 273 Nucleated Cells BF) [facility]2022-07-25 15:00:00 Test Item Value Reference Range Interpretation Comments RBC BF (test code = RBC BF) 419 [facility]2022-07-25 15:00:00 Test Item Value Reference Range Interpretation Comments Neutrophils BF (test code = Neutrophils 10 BF) [facility]2022-07-25 15:00:00 Test Item Value Reference Range Interpretation Comments Lymph BF (test code = Lymph BF) 36 [facility]2022-07-25 15:00:00 Test Item Value Reference Range Interpretation Comments Macrophage BF (test code = Macrophage 48 BF) [facility]2022-07-25 15:00:00 Test Item Value Reference Range Interpretation Comments Meso BF (test code = Meso BF) 6 [facility]2022-07-25 15:00:00 Test Item Value Reference Range Interpretation Comments Comment BF (test Differential confirmed. code = Comment BF) mesothlial cells and mixed inflammation. performed by Dr. Rosendo Chapa [facility] [id number] 15:00:00 Test Item Value Reference Range Interpretation Comments Glucose BF (test code = Glucose BF) 154 [facility] [id number] 15:00:00 Test Item Value Reference Range Interpretation Comments Gluc BF Type (test Pleural *NA*(06/13/22 code = Gluc BF Type) 10:00 AM) [facility]2022-07-25 15:00:00 Test Item Value Reference Range Interpretation Comments LDH BF (test code = LDH BF) 74 [facility] [id number] 15:00:00 Test Item Value Reference Range Interpretation Comments LDH BF Type (test Pleural *NA*(06/13/22 code = LDH BF Type) 10:00 AM) [facility]2022-07-25 15:00:00 Test Item Value Reference Range Interpretation Comments pH BF Type (test code Pleural (06/13/22 10:00 = pH BF Type) AM) [facility]2022-07-25 15:00:00 Test Item Value Reference Range Interpretation Comments pH BF (test code = pH BF) 8.00 1 [facility] [id number] 15:00:00 Test Item Value Reference Range Interpretation Comments Protein BF (test code = Protein BF) 1.0 [facility]2022-07-25 15:00:00 Test Item Value Reference Range Interpretation Comments Prot BF Type (test Pleural *NA*(06/13/22 code = Prot BF Type) 10:00 AM) [facility] [id number] 15:00:00 Test Item Value Reference Range Interpretation Comments Gram Stain Report Few WBC's No Organisms (test code = Gram Seen Stain Report) [facility]Culture: Aspirate/Body Fluid/[id number] 15:00:00 Test Item Value Reference Range Interpretation Comments Culture: Aspirate/Body Fluid/Tissue No Growth (test code = Culture: Aspirate/Body Fluid/Tissue) [facility] [id number] 15:00:00 Test Item Value Reference Range Interpretation Comments Albumin BF (test code = Albumin BF) 0.6 [facility]2022-07-25 15:00:00 Test Item Value Reference Range Interpretation Comments Alb BF Type (test Pleural *NA*(06/13/22 code = Alb BF Type) 10:00 AM) [facility]2022-07-25 15:00:00 Test Item Value Reference Range Interpretation Comments CellCnt BF Type (test Thoracen (06/13/22 10:00 code = CellCnt BF AM) Type) [facility]2022-07-25 15:00:00 Test Item Value Reference Range Interpretation Comments Color BF (test code = Yellow (06/13/22 10:00 Color BF) AM) [facility]2022-07-25 15:00:00 Test Item Value Reference Range Interpretation Comments Clarity BF (test code = Clear (06/13/22 10:00 Clarity BF) AM) [facility]2022-07-25 15:00:00 Test Item Value Reference Range Interpretation Comments Supernat BF (test code = Yellow *ABN*(06/13/22 Supernat BF) 10:00 AM) [facility]2022-07-25 15:00:00 Test Item Value Reference Range Interpretation Comments Nucleated Cells BF (test code = 273 Nucleated Cells BF) [facility]2022-07-25 15:00:00 Test Item Value Reference Range Interpretation Comments RBC BF (test code = RBC BF) 419 [facility] [id number] 15:00:00 Test Item Value Reference Range Interpretation Comments Neutrophils BF (test code = Neutrophils 10 BF) [facility]2022-07-25 15:00:00 Test Item Value Reference Range Interpretation Comments Lymph BF (test code = Lymph BF) 36 [facility]2022-07-25 15:00:00 Test Item Value Reference Range Interpretation Comments Macrophage BF (test code = Macrophage 48 BF) [facility]2022-07-25 15:00:00 Test Item Value Reference Range Interpretation Comments Meso BF (test code = Meso BF) 6 [facility] [id number] 15:00:00 Test Item Value Reference Range Interpretation Comments Comment BF (test Differential confirmed. code = Comment BF) mesothlial cells and mixed inflammation. performed by Dr. Rosendo Chapa [facility]2022-07-25 15:00:00 Test Item Value Reference Range Interpretation Comments Glucose BF (test code = Glucose BF) 154 [facility]2022-07-25 15:00:00 Test Item Value Reference Range Interpretation Comments Gluc BF Type (test Pleural *NA*(06/13/22 code = Gluc BF Type) 10:00 AM) [facility] [id number] 15:00:00 Test Item Value Reference Range Interpretation Comments LDH BF (test code = LDH BF) 74 [facility] [id number] 15:00:00 Test Item Value Reference Range Interpretation Comments LDH BF Type (test Pleural *NA*(06/13/22 code = LDH BF Type) 10:00 AM) [facility] [id number] 15:00:00 Test Item Value Reference Range Interpretation Comments pH BF Type (test code Pleural (06/13/22 10:00 = pH BF Type) AM) [facility] [id number] 15:00:00 Test Item Value Reference Range Interpretation Comments pH BF (test code = pH BF) 8.00 1 [facility] [id number] 15:00:00 Test Item Value Reference Range Interpretation Comments Protein BF (test code = Protein BF) 1.0 [facility] [id number] 15:00:00 Test Item Value Reference Range Interpretation Comments Prot BF Type (test Pleural *NA*(06/13/22 code = Prot BF Type) 10:00 AM) [facility] [id number] 15:00:00 Test Item Value Reference Range Interpretation Comments Gram Stain Report Few WBC's No Organisms (test code = Gram Seen Stain Report) [facility]: Aspirate/Body Fluid/[id number] 15:00:00 Test Item Value Reference Range Interpretation Comments Culture: Aspirate/Body Fluid/Tissue No Growth (test code = Culture: Aspirate/Body Fluid/Tissue) [facility] [id number] 15:00:00 Test Item Value Reference Range Interpretation Comments Albumin BF (test code = Albumin BF) 0.6 [facility] [id number] 15:00:00 Test Item Value Reference Range Interpretation Comments Alb BF Type (test Pleural *NA*(06/13/22 code = Alb BF Type) 10:00 AM) [facility] [id number] 15:00:00 Test Item Value Reference Range Interpretation Comments CellCnt BF Type (test Thoracen (06/13/22 10:00 code = CellCnt BF AM) Type) [facility]2022-07-25 15:00:00 Test Item Value Reference Range Interpretation Comments Color BF (test code = Yellow (06/13/22 10:00 Color BF) AM) [facility]2022-07-25 15:00:00 Test Item Value Reference Range Interpretation Comments Clarity BF (test code = Clear (06/13/22 10:00 Clarity BF) AM) [facility]2022-07-25 15:00:00 Test Item Value Reference Range Interpretation Comments Supernat BF (test code = Yellow *ABN*(06/13/22 Supernat BF) 10:00 AM) [facility]2022-07-25 15:00:00 Test Item Value Reference Range Interpretation Comments Nucleated Cells BF (test code = 273 Nucleated Cells BF) [facility]2022-07-25 15:00:00 Test Item Value Reference Range Interpretation Comments RBC BF (test code = RBC BF) 419 [facility]2022-07-25 15:00:00 Test Item Value Reference Range Interpretation Comments Neutrophils BF (test code = Neutrophils 10 BF) [facility]2022-07-25 15:00:00 Test Item Value Reference Range Interpretation Comments Lymph BF (test code = Lymph BF) 36 [facility]2022-07-25 15:00:00 Test Item Value Reference Range Interpretation Comments Macrophage BF (test code = Macrophage 48 BF) [facility]2022-07-25 15:00:00 Test Item Value Reference Range Interpretation Comments Meso BF (test code = Meso BF) 6 [facility]2022-07-25 15:00:00 Test Item Value Reference Range Interpretation Comments Comment BF (test Differential confirmed. code = Comment BF) mesothlial cells and mixed inflammation. performed by Dr. Rosendo Chapa [facility]2022-07-25 15:00:00 Test Item Value Reference Range Interpretation Comments Glucose BF (test code = Glucose BF) 154 [facility]2022-07-25 15:00:00 Test Item Value Reference Range Interpretation Comments Gluc BF Type (test Pleural *NA*(06/13/22 code = Gluc BF Type) 10:00 AM) [facility]2022-07-25 15:00:00 Test Item Value Reference Range Interpretation Comments LDH BF (test code = LDH BF) 74 [facility] [id number] 15:00:00 Test Item Value Reference Range Interpretation Comments LDH BF Type (test Pleural *NA*(06/13/22 code = LDH BF Type) 10:00 AM) [facility] [id number] 15:00:00 Test Item Value Reference Range Interpretation Comments pH BF Type (test code Pleural (06/13/22 10:00 = pH BF Type) AM) [facility] [id number] 15:00:00 Test Item Value Reference Range Interpretation Comments pH BF (test code = pH BF) 8.00 1 [facility] [id number] 15:00:00 Test Item Value Reference Range Interpretation Comments Protein BF (test code = Protein BF) 1.0 [facility] [id number] 15:00:00 Test Item Value Reference Range Interpretation Comments Prot BF Type (test Pleural *NA*(06/13/22 code = Prot BF Type) 10:00 AM) [facility] [id number] 15:00:00 Test Item Value Reference Range Interpretation Comments Gram Stain Report Few WBC's No Organisms (test code = Gram Seen Stain Report) [facility]Culture[facility] Aspirate/Body Fluid/[id number] 15:00:00 Test Item Value Reference Range Interpretation Comments Culture: Aspirate/Body Fluid/Tissue No Growth (test code = Culture: Aspirate/Body Fluid/Tissue) [facility] [id number] 15:00:00 Test Item Value Reference Range Interpretation Comments Albumin BF (test code = Albumin BF) 0.6 [facility] [id number] 15:00:00 Test Item Value Reference Range Interpretation Comments Alb BF Type (test Pleural *NA*(06/13/22 code = Alb BF Type) 10:00 AM) [facility] [id number] 15:00:00 Test Item Value Reference Range Interpretation Comments CellCnt BF Type (test Thoracen (06/13/22 10:00 code = CellCnt BF AM) Type) [facility] [id number] 15:00:00 Test Item Value Reference Range Interpretation Comments Color BF (test code = Yellow (06/13/22 10:00 Color BF) AM) [facility]2022-07-25 15:00:00 Test Item Value Reference Range Interpretation Comments Clarity BF (test code = Clear (06/13/22 10:00 Clarity BF) AM) [facility]2022-07-25 15:00:00 Test Item Value Reference Range Interpretation Comments Supernat BF (test code = Yellow *ABN*(06/13/22 Supernat BF) 10:00 AM) [facility]2022-07-25 15:00:00 Test Item Value Reference Range Interpretation Comments Nucleated Cells BF (test code = 273 Nucleated Cells BF) [facility]2022-07-25 15:00:00 Test Item Value Reference Range Interpretation Comments RBC BF (test code = RBC BF) 419 [facility]2022-07-25 15:00:00 Test Item Value Reference Range Interpretation Comments Neutrophils BF (test code = Neutrophils [address]) [facility]2022-07-25 15:00:00 Test Item Value Reference Range Interpretation Comments Lymph BF (test code = Lymph BF) 36 [facility]2022-07-25 15:00:00 Test Item Value Reference Range Interpretation Comments Macrophage BF (test code = Macrophage [address]) [facility]2022-07-25 15:00:00 Test Item Value Reference Range Interpretation Comments Meso BF (test code = Meso BF) 6 [facility]2022-07-25 15:00:00 Test Item Value Reference Range Interpretation Comments Comment BF (test Differential confirmed. code = Comment BF) mesothlial cells and mixed inflammation. performed by Dr. Rosendo Chapa [facility]2022-07-25 15:00:00 Test Item Value Reference Range Interpretation Comments Glucose BF (test code = Glucose BF) 154 [facility]2022-07-25 15:00:00 Test Item Value Reference Range Interpretation Comments Gluc BF Type (test Pleural *NA*(06/13/22 code = Gluc BF Type) 10:00 AM) [facility]2022-07-25 15:00:00 Test Item Value Reference Range Interpretation Comments LDH BF (test code = LDH BF) 74 [facility]2022-07-25 15:00:00 Test Item Value Reference Range Interpretation Comments LDH BF Type (test Pleural *NA*(06/13/22 code = LDH BF Type) 10:00 AM) [facility] [id number] 15:00:00 Test Item Value Reference Range Interpretation Comments pH BF Type (test code Pleural (06/13/22 10:00 = pH BF Type) AM) [facility] [id number] 15:00:00 Test Item Value Reference Range Interpretation Comments pH BF (test code = pH BF) 8.00 1 [facility] [id number] 15:00:00 Test Item Value Reference Range Interpretation Comments Protein BF (test code = Protein BF) 1.0 [facility] [id number] 15:00:00 Test Item Value Reference Range Interpretation Comments Prot BF Type (test Pleural *NA*(06/13/22 code = Prot BF Type) 10:00 AM) [facility] [id number] 15:00:00 Test Item Value Reference Range Interpretation Comments Gram Stain Report Few WBC's No Organisms (test code = Gram Seen Stain Report) [facility] HospitalCulture: Aspirate/Body Fluid/[id number] 15:00:00 Test Item Value Reference Range Interpretation Comments Culture: Aspirate/Body Fluid/Tissue No Growth (test code = Culture: Aspirate/Body Fluid/Tissue) [facility] [id number] 15:00:00 Test Item Value Reference Range Interpretation Comments Albumin BF (test code = Albumin BF) 0.6 [facility] [id number] 15:00:00 Test Item Value Reference Range Interpretation Comments Alb BF Type (test Pleural *NA*(06/13/22 code = Alb BF Type) 10:00 AM) [facility] [id number] 15:00:00 Test Item Value Reference Range Interpretation Comments CellCnt BF Type (test Thoracen (06/13/22 10:00 code = CellCnt BF AM) Type) [facility] [id number] 15:00:00 Test Item Value Reference Range Interpretation Comments Color BF (test code = Yellow (06/13/22 10:00 Color BF) AM) [facility] [id number] 15:00:00 Test Item Value Reference Range Interpretation Comments Clarity BF (test code = Clear (06/13/22 10:00 Clarity BF) AM) [facility]2022-07-25 15:00:00 Test Item Value Reference Range Interpretation Comments Supernat BF (test code = Yellow *ABN*(06/13/22 Supernat BF) 10:00 AM) [facility]2022-07-25 15:00:00 Test Item Value Reference Range Interpretation Comments Nucleated Cells BF (test code = 273 Nucleated Cells BF) [facility]2022-07-25 15:00:00 Test Item Value Reference Range Interpretation Comments RBC BF (test code = RBC BF) 419 [facility]2022-07-25 15:00:00 Test Item Value Reference Range Interpretation Comments Neutrophils BF (test code = Neutrophils [address]) [facility]2022-07-25 15:00:00 Test Item Value Reference Range Interpretation Comments Lymph BF (test code = Lymph BF) 36 [facility]2022-07-25 15:00:00 Test Item Value Reference Range Interpretation Comments Macrophage BF (test code = Macrophage [address]) [facility]2022-07-25 15:00:00 Test Item Value Reference Range Interpretation Comments Meso BF (test code = Meso BF) 6 [facility]2022-07-25 15:00:00 Test Item Value Reference Range Interpretation Comments Comment BF (test Differential confirmed. code = Comment BF) mesothlial cells and mixed inflammation. performed by Dr. Rosendo Chapa [facility]2022-07-25 15:00:00 Test Item Value Reference Range Interpretation Comments Glucose BF (test code = Glucose BF) 154 [facility]2022-07-25 15:00:00 Test Item Value Reference Range Interpretation Comments Gluc BF Type (test Pleural *NA*(06/13/22 code = Gluc BF Type) 10:00 AM) [facility]2022-07-25 15:00:00 Test Item Value Reference Range Interpretation Comments LDH BF (test code = LDH BF) 74 [facility]2022-07-25 15:00:00 Test Item Value Reference Range Interpretation Comments LDH BF Type (test Pleural *NA*(06/13/22 code = LDH BF Type) 10:00 AM) [facility]2022-07-25 15:00:00 Test Item Value Reference Range Interpretation Comments pH BF Type (test code Pleural (06/13/22 10:00 = pH BF Type) AM) [facility] [id number] 15:00:00 Test Item Value Reference Range Interpretation Comments pH BF (test code = pH BF) 8.00 1 [facility] [id number] 15:00:00 Test Item Value Reference Range Interpretation Comments Protein BF (test code = Protein BF) 1.0 [facility] [id number] 15:00:00 Test Item Value Reference Range Interpretation Comments Prot BF Type (test Pleural *NA*(06/13/22 code = Prot BF Type) 10:00 AM) [facility] [id number] 15:00:00 Test Item Value Reference Range Interpretation Comments Gram Stain Report Few WBC's No Organisms (test code = Gram Seen Stain Report) [facility] HospitalCulture: Aspirate/Body Fluid/[id number] 15:00:00 Test Item Value Reference Range Interpretation Comments Culture: Aspirate/Body Fluid/Tissue No Growth (test code = Culture: Aspirate/Body Fluid/Tissue) [facility]2022-07-25 15:00:00 Test Item Value Reference Range Interpretation Comments Albumin BF (test code = Albumin BF) 0.6 [facility]2022-07-25 15:00:00 Test Item Value Reference Range Interpretation Comments Alb BF Type (test Pleural *NA*(06/13/22 code = Alb BF Type) 10:00 AM) [facility]2022-07-25 15:00:00 Test Item Value Reference Range Interpretation Comments CellCnt BF Type (test Thoracen (06/13/22 10:00 code = CellCnt BF AM) Type) [facility]2022-07-25 15:00:00 Test Item Value Reference Range Interpretation Comments Color BF (test code = Yellow (06/13/22 10:00 Color BF) AM) [facility]2022-07-25 15:00:00 Test Item Value Reference Range Interpretation Comments Clarity BF (test code = Clear (06/13/22 10:00 Clarity BF) AM) [facility]2022-07-25 15:00:00 Test Item Value Reference Range Interpretation Comments Supernat BF (test code = Yellow *ABN*(06/13/22 Supernat BF) 10:00 AM) [facility]2022-07-25 15:00:00 Test Item Value Reference Range Interpretation Comments Nucleated Cells BF (test code = 273 Nucleated Cells BF) [facility]2022-07-25 15:00:00 Test Item Value Reference Range Interpretation Comments RBC BF (test code = RBC BF) 419 [facility]2022-07-25 15:00:00 Test Item Value Reference Range Interpretation Comments Neutrophils BF (test code = Neutrophils [address]) [facility]2022-07-25 15:00:00 Test Item Value Reference Range Interpretation Comments Lymph BF (test code = Lymph BF) 36 [facility]2022-07-25 15:00:00 Test Item Value Reference Range Interpretation Comments Macrophage BF (test code = Macrophage [address]) [facility]2022-07-25 15:00:00 Test Item Value Reference Range Interpretation Comments Meso BF (test code = Meso BF) 6 [facility]2022-07-25 15:00:00 Test Item Value Reference Range Interpretation Comments Comment BF (test Differential confirmed. code = Comment BF) mesothlial cells and mixed inflammation. performed by Dr. Rosendo Chapa [facility]2022-07-25 15:00:00 Test Item Value Reference Range Interpretation Comments Glucose BF (test code = Glucose BF) 154 [facility]2022-07-25 15:00:00 Test Item Value Reference Range Interpretation Comments Gluc BF Type (test Pleural *NA*(06/13/22 code = Gluc BF Type) 10:00 AM) [facility]2022-07-25 15:00:00 Test Item Value Reference Range Interpretation Comments LDH BF (test code = LDH BF) 74 [facility]2022-07-25 15:00:00 Test Item Value Reference Range Interpretation Comments LDH BF Type (test Pleural *NA*(06/13/22 code = LDH BF Type) 10:00 AM) [facility]2022-07-25 15:00:00 Test Item Value Reference Range Interpretation Comments pH BF Type (test code Pleural (06/13/22 10:00 = pH BF Type) AM) [facility]2022-07-25 15:00:00 Test Item Value Reference Range Interpretation Comments pH BF (test code = pH BF) 8.00 1 [facility] [id number] 15:00:00 Test Item Value Reference Range Interpretation Comments Protein BF (test code = Protein BF) 1.0 [facility] [id number] 15:00:00 Test Item Value Reference Range Interpretation Comments Prot BF Type (test Pleural *NA*(06/13/22 code = Prot BF Type) 10:00 AM) [facility] [id number] 15:00:00 Test Item Value Reference Range Interpretation Comments Gram Stain Report Few WBC's No Organisms (test code = Gram Seen Stain Report) [facility]Culture: Aspirate/Body Fluid/[id number] 15:00:00 Test Item Value Reference Range Interpretation Comments Culture: Aspirate/Body Fluid/Tissue No Growth (test code = Culture: Aspirate/Body Fluid/Tissue) [facility]2022-07-25 15:00:00 Test Item Value Reference Range Interpretation Comments Albumin BF (test code = Albumin BF) 0.6 [facility]2022-07-25 15:00:00 Test Item Value Reference Range Interpretation Comments Alb BF Type (test Pleural *NA*(06/13/22 code = Alb BF Type) 10:00 AM) [facility]2022-07-25 15:00:00 Test Item Value Reference Range Interpretation Comments CellCnt BF Type (test Thoracen (06/13/22 10:00 code = CellCnt BF AM) Type) [facility]2022-07-25 15:00:00 Test Item Value Reference Range Interpretation Comments Color BF (test code = Yellow (06/13/22 10:00 Color BF) AM) [facility]2022-07-25 15:00:00 Test Item Value Reference Range Interpretation Comments Clarity BF (test code = Clear (06/13/22 10:00 Clarity BF) AM) [facility]2022-07-25 15:00:00 Test Item Value Reference Range Interpretation Comments Supernat BF (test code = Yellow *ABN*(06/13/22 Supernat BF) 10:00 AM) [facility]2022-07-25 15:00:00 Test Item Value Reference Range Interpretation Comments Nucleated Cells BF (test code = 273 Nucleated Cells BF) [facility]2022-07-25 15:00:00 Test Item Value Reference Range Interpretation Comments RBC BF (test code = RBC BF) 419 [facility]2022-07-25 15:00:00 Test Item Value Reference Range Interpretation Comments Neutrophils BF (test code = Neutrophils 10 [address]) [facility]2022-07-25 15:00:00 Test Item Value Reference Range Interpretation Comments Lymph BF (test code = Lymph BF) 36 [facility]2022-07-25 15:00:00 Test Item Value Reference Range Interpretation Comments Macrophage BF (test code = Macrophage 48 BF) [facility]2022-07-25 15:00:00 Test Item Value Reference Range Interpretation Comments Meso BF (test code = Meso BF) 6 [facility]2022-07-25 15:00:00 Test Item Value Reference Range Interpretation Comments Comment BF (test Differential confirmed. code = Comment BF) mesothlial cells and mixed inflammation. performed by Dr. Rosendo Chapa [facility]2022-07-25 15:00:00 Test Item Value Reference Range Interpretation Comments Glucose BF (test code = Glucose BF) 154 [facility]2022-07-25 15:00:00 Test Item Value Reference Range Interpretation Comments Gluc BF Type (test Pleural *NA*(06/13/22 code = Gluc BF Type) 10:00 AM) [facility]2022-07-25 15:00:00 Test Item Value Reference Range Interpretation Comments LDH BF (test code = LDH BF) 74 [facility]2022-07-25 15:00:00 Test Item Value Reference Range Interpretation Comments LDH BF Type (test Pleural *NA*(06/13/22 code = LDH BF Type) 10:00 AM) [facility]2022-07-25 15:00:00 Test Item Value Reference Range Interpretation Comments pH BF Type (test code Pleural (06/13/22 10:00 = pH BF Type) AM) [facility]2022-07-25 15:00:00 Test Item Value Reference Range Interpretation Comments pH BF (test code = pH BF) 8.[address] [facility]2022-07-25 15:00:00 Test Item Value Reference Range Interpretation Comments Protein BF (test code = Protein BF) 1.0 [facility]2022-07-25 15:00:00 Test Item Value Reference Range Interpretation Comments Prot BF Type (test Pleural *NA*(06/13/22 code = Prot BF Type) 10:00 AM) [facility] [id number] 15:00:00 Test Item Value Reference Range Interpretation Comments Gram Stain Report Few WBC's No Organisms (test code = Gram Seen Stain Report) [facility]Culture: Aspirate/Body Fluid/[id number] 15:00:00 Test Item Value Reference Range Interpretation Comments Culture: Aspirate/Body Fluid/Tissue No Growth (test code = Culture: Aspirate/Body Fluid/Tissue) [facility] [id number] 15:00:00 Test Item Value Reference Range Interpretation Comments Albumin BF (test code = Albumin BF) 0.6 [facility]2022-07-25 15:00:00 Test Item Value Reference Range Interpretation Comments Alb BF Type (test Pleural *NA*(06/13/22 code = Alb BF Type) 10:00 AM) [facility]2022-07-25 15:00:00 Test Item Value Reference Range Interpretation Comments CellCnt BF Type (test Thoracen (06/13/22 10:00 code = CellCnt BF AM) Type) [facility]2022-07-25 15:00:00 Test Item Value Reference Range Interpretation Comments Color BF (test code = Yellow (06/13/22 10:00 Color BF) AM) [facility]2022-07-25 15:00:00 Test Item Value Reference Range Interpretation Comments Clarity BF (test code = Clear (06/13/22 10:00 Clarity BF) AM) [facility]2022-07-25 15:00:00 Test Item Value Reference Range Interpretation Comments Supernat BF (test code = Yellow *ABN*(06/13/22 Supernat BF) 10:00 AM) [facility]2022-07-25 15:00:00 Test Item Value Reference Range Interpretation Comments Nucleated Cells BF (test code = 273 Nucleated Cells BF) [facility]2022-07-25 15:00:00 Test Item Value Reference Range Interpretation Comments RBC BF (test code = RBC BF) 419 [facility]2022-07-25 15:00:00 Test Item Value Reference Range Interpretation Comments Neutrophils BF (test code = Neutrophils 10 BF) [facility] [id number] 15:00:00 Test Item Value Reference Range Interpretation Comments Lymph BF (test code = Lymph BF) 36 [facility] [id number] 15:00:00 Test Item Value Reference Range Interpretation Comments Macrophage BF (test code = Macrophage 48 BF) [facility] [id number] 15:00:00 Test Item Value Reference Range Interpretation Comments Meso BF (test code = Meso BF) 6 [facility] [id number] 15:00:00 Test Item Value Reference Range Interpretation Comments Comment BF (test Differential confirmed. code = Comment BF) mesothlial cells and mixed inflammation. performed by Dr. Rosendo [facility]a [facility] [id number] 15:00:00 Test Item Value Reference Range Interpretation Comments Glucose BF (test code = Glucose BF) 154 [facility] [id number] 15:00:00 Test Item Value Reference Range Interpretation Comments Gluc BF Type (test Pleural *NA*(06/13/22 code = Gluc BF Type) 10:00 AM) [facility] [id number] 15:00:00 Test Item Value Reference Range Interpretation Comments LDH BF (test code = LDH BF) 74 [facility] [id number] 15:00:00 Test Item Value Reference Range Interpretation Comments LDH BF Type (test Pleural *NA*(06/13/22 code = LDH BF Type) 10:00 AM) [facility] [id number] 15:00:00 Test Item Value Reference Range Interpretation Comments pH BF Type (test code Pleural (06/13/22 10:00 = pH BF Type) AM) [facility] [id number] 15:00:00 Test Item Value Reference Range Interpretation Comments pH BF (test code = pH BF) 8.00 1 [facility] [id number] 15:00:00 Test Item Value Reference Range Interpretation Comments Protein BF (test code = Protein BF) 1.0 [facility] [id number] 15:00:00 Test Item Value Reference Range Interpretation Comments Prot BF Type (test Pleural *NA*(06/13/22 code = Prot BF Type) 10:00 AM) [facility] CenterIRIS.TVGram Stain [id number] 15:00:00 Test Item Value Reference Range Interpretation Comments Gram Stain Report Few WBC's No Organisms (test code = Gram Seen Stain Report) [facility]: Aspirate/Body Fluid/[id number] 15:00:00 Test Item Value Reference Range Interpretation Comments Culture: Aspirate/Body Fluid/Tissue No Growth (test code = Culture: Aspirate/Body Fluid/Tissue) [facility]2022-07-25 15:00:00 Test Item Value Reference Range Interpretation Comments Albumin BF (test code = Albumin BF) 0.6 [facility]2022-07-25 15:00:00 Test Item Value Reference Range Interpretation Comments Alb BF Type (test Pleural *NA*(06/13/22 code = Alb BF Type) 10:00 AM) [facility]2022-07-25 15:00:00 Test Item Value Reference Range Interpretation Comments CellCnt BF Type (test Thoracen (06/13/22 10:00 code = CellCnt BF AM) Type) [facility]2022-07-25 15:00:00 Test Item Value Reference Range Interpretation Comments Color BF (test code = Yellow (06/13/22 10:00 Color BF) AM) [facility]2022-07-25 15:00:00 Test Item Value Reference Range Interpretation Comments Clarity BF (test code = Clear (06/13/22 10:00 Clarity BF) AM) [facility]2022-07-25 15:00:00 Test Item Value Reference Range Interpretation Comments Supernat BF (test code = Yellow *ABN*(06/13/22 Supernat BF) 10:00 AM) [facility]2022-07-25 15:00:00 Test Item Value Reference Range Interpretation Comments Nucleated Cells BF (test code = 273 Nucleated Cells BF) [facility]2022-07-25 15:00:00 Test Item Value Reference Range Interpretation Comments RBC BF (test code = RBC BF) 419 [facility]2022-07-25 15:00:00 Test Item Value Reference Range Interpretation Comments Neutrophils BF (test code = Neutrophils [address]) [facility]2022-07-25 15:00:00 Test Item Value Reference Range Interpretation Comments Lymph BF (test code = Lymph BF) 36 [facility]2022-07-25 15:00:00 Test Item Value Reference Range Interpretation Comments Macrophage BF (test code = Macrophage 48 BF) [facility] [id number] 15:00:00 Test Item Value Reference Range Interpretation Comments Meso BF (test code = Meso BF) 6 [facility]2022-07-25 15:00:00 Test Item Value Reference Range Interpretation Comments Comment BF (test Differential confirmed. code = Comment BF) mesothlial cells and mixed inflammation. performed by Dr. Rosendo Chapa [facility] [id number] 15:00:00 Test Item Value Reference Range Interpretation Comments Glucose BF (test code = Glucose BF) 154 [facility] [id number] 15:00:00 Test Item Value Reference Range Interpretation Comments Gluc BF Type (test Pleural *NA*(06/13/22 code = Gluc BF Type) 10:00 AM) [facility]2022-07-25 15:00:00 Test Item Value Reference Range Interpretation Comments LDH BF (test code = LDH BF) 74 [facility]2022-07-25 15:00:00 Test Item Value Reference Range Interpretation Comments LDH BF Type (test Pleural *NA*(06/13/22 code = LDH BF Type) 10:00 AM) [facility] [id number] 15:00:00 Test Item Value Reference Range Interpretation Comments pH BF Type (test code Pleural (06/13/22 10:00 = pH BF Type) AM) [facility]2022-07-25 15:00:00 Test Item Value Reference Range Interpretation Comments pH BF (test code = pH BF) 8.00 1 [facility] [id number] 15:00:00 Test Item Value Reference Range Interpretation Comments Protein BF (test code = Protein BF) 1.0 [facility] [id number] 15:00:00 Test Item Value Reference Range Interpretation Comments Prot BF Type (test Pleural *NA*(06/13/22 code = Prot BF Type) 10:00 AM) [facility] [id number] 15:00:00 Test Item Value Reference Range Interpretation Comments Gram Stain Report Few WBC's No Organisms (test code = Gram Seen Stain Report) [facility] Aspirate/Body Fluid/[id number] 15:00:00 Test Item Value Reference Range Interpretation Comments Culture: Aspirate/Body Fluid/Tissue No Growth (test code = Culture: Aspirate/Body Fluid/Tissue) [facility]2022-07-25 15:00:00 Test Item Value Reference Range Interpretation Comments Albumin BF (test code = Albumin BF) 0.6 [facility]2022-07-25 15:00:00 Test Item Value Reference Range Interpretation Comments Alb BF Type (test Pleural *NA*(06/13/22 code = Alb BF Type) 10:00 AM) [facility]2022-07-25 15:00:00 Test Item Value Reference Range Interpretation Comments CellCnt BF Type (test Thoracen (06/13/22 10:00 code = CellCnt BF AM) Type) [facility]2022-07-25 15:00:00 Test Item Value Reference Range Interpretation Comments Color BF (test code = Yellow (06/13/22 10:00 Color BF) AM) [facility]2022-07-25 15:00:00 Test Item Value Reference Range Interpretation Comments Clarity BF (test code = Clear (06/13/22 10:00 Clarity BF) AM) [facility]2022-07-25 15:00:00 Test Item Value Reference Range Interpretation Comments Supernat BF (test code = Yellow *ABN*(06/13/22 Supernat BF) 10:00 AM) [facility]2022-07-25 15:00:00 Test Item Value Reference Range Interpretation Comments Nucleated Cells BF (test code = 273 Nucleated Cells BF) [facility]2022-07-25 15:00:00 Test Item Value Reference Range Interpretation Comments RBC BF (test code = RBC BF) 419 [facility]2022-07-25 15:00:00 Test Item Value Reference Range Interpretation Comments Neutrophils BF (test code = Neutrophils 10 BF) [facility] [id number] 15:00:00 Test Item Value Reference Range Interpretation Comments Lymph BF (test code = Lymph BF) 36 [facility]2022-07-25 15:00:00 Test Item Value Reference Range Interpretation Comments Macrophage BF (test code = Macrophage [address]) [facility]2022-07-25 15:00:00 Test Item Value Reference Range Interpretation Comments Meso BF (test code = Meso BF) 6 [facility] [id number] 15:00:00 Test Item Value Reference Range Interpretation Comments Comment BF (test Differential confirmed. code = Comment BF) mesothlial cells and mixed inflammation. performed by Dr. Rosendo Chapa [facility] [id number] 15:00:00 Test Item Value Reference Range Interpretation Comments Glucose BF (test code = Glucose BF) 154 [facility] [id number] 15:00:00 Test Item Value Reference Range Interpretation Comments Gluc BF Type (test Pleural *NA*(06/13/22 code = Gluc BF Type) 10:00 AM) [facility] [id number] 15:00:00 Test Item Value Reference Range Interpretation Comments LDH BF (test code = LDH BF) 74 [facility]2022-07-25 15:00:00 Test Item Value Reference Range Interpretation Comments LDH BF Type (test Pleural *NA*(06/13/22 code = LDH BF Type) 10:00 AM) [facility]2022-07-25 15:00:00 Test Item Value Reference Range Interpretation Comments pH BF Type (test code Pleural (06/13/22 10:00 = pH BF Type) AM) [facility]2022-07-25 15:00:00 Test Item Value Reference Range Interpretation Comments pH BF (test code = pH BF) 8.00 1 [facility] [id number] 15:00:00 Test Item Value Reference Range Interpretation Comments Protein BF (test code = Protein BF) 1.0 [facility]2022-07-25 15:00:00 Test Item Value Reference Range Interpretation Comments Prot BF Type (test Pleural *NA*(06/13/22 code = Prot BF Type) 10:00 AM) [facility] [id number] 15:00:00 Test Item Value Reference Range Interpretation Comments Gram Stain Report Few WBC's No Organisms (test code = Gram Seen Stain Report) [facility] Aspirate/Body Fluid/[id number] 15:00:00 Test Item Value Reference Range Interpretation Comments Culture: Aspirate/Body Fluid/Tissue No Growth (test code = Culture: Aspirate/Body Fluid/Tissue) [facility]2022-07-25 15:00:00 Test Item Value Reference Range Interpretation Comments Albumin BF (test code = Albumin BF) 0.6 [facility]2022-07-25 15:00:00 Test Item Value Reference Range Interpretation Comments Alb BF Type (test Pleural *NA*(06/13/22 code = Alb BF Type) 10:00 AM) [facility]2022-07-25 15:00:00 Test Item Value Reference Range Interpretation Comments CellCnt BF Type (test Thoracen (06/13/22 10:00 code = CellCnt BF AM) Type) [facility]2022-07-25 15:00:00 Test Item Value Reference Range Interpretation Comments Color BF (test code = Yellow (06/13/22 10:00 Color BF) AM) [facility]2022-07-25 15:00:00 Test Item Value Reference Range Interpretation Comments Clarity BF (test code = Clear (06/13/22 10:00 Clarity BF) AM) [facility]2022-07-25 15:00:00 Test Item Value Reference Range Interpretation Comments Supernat BF (test code = Yellow *ABN*(06/13/22 Supernat BF) 10:00 AM) [facility]2022-07-25 15:00:00 Test Item Value Reference Range Interpretation Comments Nucleated Cells BF (test code = 273 Nucleated Cells BF) [facility]2022-07-25 15:00:00 Test Item Value Reference Range Interpretation Comments RBC BF (test code = RBC BF) 419 [facility]2022-07-25 15:00:00 Test Item Value Reference Range Interpretation Comments Neutrophils BF (test code = Neutrophils [address]) [facility]2022-07-25 15:00:00 Test Item Value Reference Range Interpretation Comments Lymph BF (test code = Lymph BF) 36 [facility] [id number] 15:00:00 Test Item Value Reference Range Interpretation Comments Macrophage BF (test code = Macrophage 48 BF) [facility] [id number] 15:00:00 Test Item Value Reference Range Interpretation Comments Meso BF (test code = Meso BF) 6 [facility]2022-07-25 15:00:00 Test Item Value Reference Range Interpretation Comments Comment BF (test Differential confirmed. code = Comment BF) mesothlial cells and mixed inflammation. performed by Dr. Rosendo Chapa [facility] [id number] 15:00:00 Test Item Value Reference Range Interpretation Comments Glucose BF (test code = Glucose BF) 154 [facility] [id number] 15:00:00 Test Item Value Reference Range Interpretation Comments Gluc BF Type (test Pleural *NA*(06/13/22 code = Gluc BF Type) 10:00 AM) [facility]2022-07-25 15:00:00 Test Item Value Reference Range Interpretation Comments LDH BF (test code = LDH BF) 74 [facility] [id number] 15:00:00 Test Item Value Reference Range Interpretation Comments LDH BF Type (test Pleural *NA*(06/13/22 code = LDH BF Type) 10:00 AM) [facility]2022-07-25 15:00:00 Test Item Value Reference Range Interpretation Comments pH BF Type (test code Pleural (06/13/22 10:00 = pH BF Type) AM) [facility]2022-07-25 15:00:00 Test Item Value Reference Range Interpretation Comments pH BF (test code = pH BF) 8.[address] [facility]2022-07-25 15:00:00 Test Item Value Reference Range Interpretation Comments Protein BF (test code = Protein BF) 1.0 [facility]2022-07-25 15:00:00 Test Item Value Reference Range Interpretation Comments Prot BF Type (test Pleural *NA*(06/13/22 code = Prot BF Type) 10:00 AM) [facility] [id number] 15:00:00 Test Item Value Reference Range Interpretation Comments Gram Stain Report Few WBC's No Organisms (test code = Gram Seen Stain Report) [facility] Aspirate/Body Fluid/[id number] 15:00:00 Test Item Value Reference Range Interpretation Comments Culture: Aspirate/Body Fluid/Tissue No Growth (test code = Culture: Aspirate/Body Fluid/Tissue) [facility] [id number] 15:00:00 Test Item Value Reference Range Interpretation Comments Albumin BF (test code = Albumin BF) 0.6 [facility]2022-07-25 15:00:00 Test Item Value Reference Range Interpretation Comments Alb BF Type (test Pleural *NA*(06/13/22 code = Alb BF Type) 10:00 AM) [facility]2022-07-25 15:00:00 Test Item Value Reference Range Interpretation Comments CellCnt BF Type (test Thoracen (06/13/22 10:00 code = CellCnt BF AM) Type) [facility]2022-07-25 15:00:00 Test Item Value Reference Range Interpretation Comments Color BF (test code = Yellow (06/13/22 10:00 Color BF) AM) [facility]2022-07-25 15:00:00 Test Item Value Reference Range Interpretation Comments Clarity BF (test code = Clear (06/13/22 10:00 Clarity BF) AM) [facility]2022-07-25 15:00:00 Test Item Value Reference Range Interpretation Comments Supernat BF (test code = Yellow *ABN*(06/13/22 Supernat BF) 10:00 AM) [facility]2022-07-25 15:00:00 Test Item Value Reference Range Interpretation Comments Nucleated Cells BF (test code = 273 Nucleated Cells BF) [facility]2022-07-25 15:00:00 Test Item Value Reference Range Interpretation Comments RBC BF (test code = RBC BF) 419 [facility]2022-07-25 15:00:00 Test Item Value Reference Range Interpretation Comments Neutrophils BF (test code = Neutrophils [address]) [facility]2022-07-25 15:00:00 Test Item Value Reference Range Interpretation Comments Lymph BF (test code = Lymph BF) 36 [facility]2022-07-25 15:00:00 Test Item Value Reference Range Interpretation Comments Macrophage BF (test code = Macrophage [address]) [facility]2022-07-25 15:00:00 Test Item Value Reference Range Interpretation Comments Meso BF (test code = Meso BF) 6 [facility]2022-07-25 15:00:00 Test Item Value Reference Range Interpretation Comments Comment BF (test Differential confirmed. code = Comment BF) mesothlial cells and mixed inflammation. performed by Dr. Rosendo Chapa [facility]2022-07-25 15:00:00 Test Item Value Reference Range Interpretation Comments Glucose BF (test code = Glucose BF) 154 [facility]2022-07-25 15:00:00 Test Item Value Reference Range Interpretation Comments Gluc BF Type (test Pleural *NA*(06/13/22 code = Gluc BF Type) 10:00 AM) [facility] [id number] 15:00:00 Test Item Value Reference Range Interpretation Comments LDH BF (test code = LDH BF) 74 [facility] [id number] 15:00:00 Test Item Value Reference Range Interpretation Comments LDH BF Type (test Pleural *NA*(06/13/22 code = LDH BF Type) 10:00 AM) [facility] [id number] 15:00:00 Test Item Value Reference Range Interpretation Comments pH BF Type (test code Pleural (06/13/22 10:00 = pH BF Type) AM) [facility] [id number] 15:00:00 Test Item Value Reference Range Interpretation Comments pH BF (test code = pH BF) 8.00 1 [facility] [id number] 15:00:00 Test Item Value Reference Range Interpretation Comments Protein BF (test code = Protein BF) 1.0 [facility] [id number] 15:00:00 Test Item Value Reference Range Interpretation Comments Prot BF Type (test Pleural *NA*(06/13/22 code = Prot BF Type) 10:00 AM) [facility] [id number] 15:00:00 Test Item Value Reference Range Interpretation Comments Gram Stain Report Few WBC's No Organisms (test code = Gram Seen Stain Report) [facility] Aspirate/Body Fluid/[id number] 15:00:00 Test Item Value Reference Range Interpretation Comments Culture: Aspirate/Body Fluid/Tissue No Growth (test code = Culture: Aspirate/Body Fluid/Tissue) [facility] [id number] 15:00:00 Test Item Value Reference Range Interpretation Comments Albumin BF (test code = Albumin BF) 0.6 [facility] [id number] 15:00:00 Test Item Value Reference Range Interpretation Comments Alb BF Type (test Pleural *NA*(06/13/22 code = Alb BF Type) 10:00 AM) [facility] [id number] 15:00:00 Test Item Value Reference Range Interpretation Comments CellCnt BF Type (test Thoracen (06/13/22 10:00 code = CellCnt BF AM) Type) [facility]2022-07-25 15:00:00 Test Item Value Reference Range Interpretation Comments Color BF (test code = Yellow (06/13/22 10:00 Color BF) AM) [facility]2022-07-25 15:00:00 Test Item Value Reference Range Interpretation Comments Clarity BF (test code = Clear (06/13/22 10:00 Clarity BF) AM) [facility]2022-07-25 15:00:00 Test Item Value Reference Range Interpretation Comments Supernat BF (test code = Yellow *ABN*(06/13/22 Supernat BF) 10:00 AM) [facility]2022-07-25 15:00:00 Test Item Value Reference Range Interpretation Comments Nucleated Cells BF (test code = 273 Nucleated Cells BF) [facility]2022-07-25 15:00:00 Test Item Value Reference Range Interpretation Comments RBC BF (test code = RBC BF) 419 [facility]2022-07-25 15:00:00 Test Item Value Reference Range Interpretation Comments Neutrophils BF (test code = Neutrophils 10 BF) [facility]2022-07-25 15:00:00 Test Item Value Reference Range Interpretation Comments Lymph BF (test code = Lymph BF) 36 [facility]2022-07-25 15:00:00 Test Item Value Reference Range Interpretation Comments Macrophage BF (test code = Macrophage 48 BF) [facility]2022-07-25 15:00:00 Test Item Value Reference Range Interpretation Comments Meso BF (test code = Meso BF) 6 [facility]2022-07-25 15:00:00 Test Item Value Reference Range Interpretation Comments Comment BF (test Differential confirmed. code = Comment BF) mesothlial cells and mixed inflammation. performed by Dr. Rosendo Chapa [facility]2022-07-25 15:00:00 Test Item Value Reference Range Interpretation Comments Glucose BF (test code = Glucose BF) 154 [facility]2022-07-25 15:00:00 Test Item Value Reference Range Interpretation Comments Gluc BF Type (test Pleural *NA*(06/13/22 code = Gluc BF Type) 10:00 AM) [facility]2022-07-25 15:00:00 Test Item Value Reference Range Interpretation Comments LDH BF (test code = LDH BF) 74 [facility] [id number] 15:00:00 Test Item Value Reference Range Interpretation Comments LDH BF Type (test Pleural *NA*(06/13/22 code = LDH BF Type) 10:00 AM) [facility] [id number] 15:00:00 Test Item Value Reference Range Interpretation Comments pH BF Type (test code Pleural (06/13/22 10:00 = pH BF Type) AM) [facility] [id number] 15:00:00 Test Item Value Reference Range Interpretation Comments pH BF (test code = pH BF) 8.00 1 [facility] [id number] 15:00:00 Test Item Value Reference Range Interpretation Comments Protein BF (test code = Protein BF) 1.0 [facility] [id number] 15:00:00 Test Item Value Reference Range Interpretation Comments Prot BF Type (test Pleural *NA*(06/13/22 code = Prot BF Type) 10:00 AM) [facility] [id number] 15:00:00 Test Item Value Reference Range Interpretation Comments Gram Stain Report Few WBC's No Organisms (test code = Gram Seen Stain Report) [facility] Aspirate/Body Fluid/[id number] 15:00:00 Test Item Value Reference Range Interpretation Comments Culture: Aspirate/Body Fluid/Tissue No Growth (test code = Culture: Aspirate/Body Fluid/Tissue) [facility]2022-07-25 15:00:00 Test Item Value Reference Range Interpretation Comments Albumin BF (test code = Albumin BF) 0.6 [facility]2022-07-25 15:00:00 Test Item Value Reference Range Interpretation Comments Alb BF Type (test Pleural *NA*(06/13/22 code = Alb BF Type) 10:00 AM) [facility]2022-07-25 15:00:00 Test Item Value Reference Range Interpretation Comments CellCnt BF Type (test Thoracen (06/13/22 10:00 code = CellCnt BF AM) Type) [facility] [id number] 15:00:00 Test Item Value Reference Range Interpretation Comments Color BF (test code = Yellow (06/13/22 10:00 Color BF) AM) [facility]2022-07-25 15:00:00 Test Item Value Reference Range Interpretation Comments Clarity BF (test code = Clear (06/13/22 10:00 Clarity BF) AM) [facility]2022-07-25 15:00:00 Test Item Value Reference Range Interpretation Comments Supernat BF (test code = Yellow *ABN*(06/13/22 Supernat BF) 10:00 AM) [facility]2022-07-25 15:00:00 Test Item Value Reference Range Interpretation Comments Nucleated Cells BF (test code = 273 Nucleated Cells BF) [facility]2022-07-25 15:00:00 Test Item Value Reference Range Interpretation Comments RBC BF (test code = RBC BF) 419 [facility]2022-07-25 15:00:00 Test Item Value Reference Range Interpretation Comments Neutrophils BF (test code = Neutrophils 10 BF) [facility]2022-07-25 15:00:00 Test Item Value Reference Range Interpretation Comments Lymph BF (test code = Lymph BF) 36 [facility]2022-07-25 15:00:00 Test Item Value Reference Range Interpretation Comments Macrophage BF (test code = Macrophage 48 BF) [facility]2022-07-25 15:00:00 Test Item Value Reference Range Interpretation Comments Meso BF (test code = Meso BF) 6 [facility]2022-07-25 15:00:00 Test Item Value Reference Range Interpretation Comments Comment BF (test Differential confirmed. code = Comment BF) mesothlial cells and mixed inflammation. performed by Dr. Rosendo Chapa [facility]2022-07-25 15:00:00 Test Item Value Reference Range Interpretation Comments Glucose BF (test code = Glucose BF) 154 [facility]2022-07-25 15:00:00 Test Item Value Reference Range Interpretation Comments Gluc BF Type (test Pleural *NA*(06/13/22 code = Gluc BF Type) 10:00 AM) [facility]2022-07-25 15:00:00 Test Item Value Reference Range Interpretation Comments LDH BF (test code = LDH BF) 74 [facility]2022-07-25 15:00:00 Test Item Value Reference Range Interpretation Comments LDH BF Type (test Pleural *NA*(06/13/22 code = LDH BF Type) 10:00 AM) [facility] [id number] 15:00:00 Test Item Value Reference Range Interpretation Comments pH BF Type (test code Pleural (06/13/22 10:00 = pH BF Type) AM) [facility] [id number] 15:00:00 Test Item Value Reference Range Interpretation Comments pH BF (test code = pH BF) 8.00 1 [facility] [id number] 15:00:00 Test Item Value Reference Range Interpretation Comments Protein BF (test code = Protein BF) 1.0 [facility] [id number] 15:00:00 Test Item Value Reference Range Interpretation Comments Prot BF Type (test Pleural *NA*(06/13/22 code = Prot BF Type) 10:00 AM) [facility] [id number] 15:00:00 Test Item Value Reference Range Interpretation Comments Gram Stain Report Few WBC's No Organisms (test code = Gram Seen Stain Report) [facility] Aspirate/Body Fluid/[id number] 15:00:00 Test Item Value Reference Range Interpretation Comments Culture: Aspirate/Body Fluid/Tissue No Growth (test code = Culture: Aspirate/Body Fluid/Tissue) [facility] [id number] 15:00:00 Test Item Value Reference Range Interpretation Comments Albumin BF (test code = Albumin BF) 0.6 [facility] [id number] 15:00:00 Test Item Value Reference Range Interpretation Comments Alb BF Type (test Pleural *NA*(06/13/22 code = Alb BF Type) 10:00 AM) [facility] [id number] 15:00:00 Test Item Value Reference Range Interpretation Comments CellCnt BF Type (test Thoracen (06/13/22 10:00 code = CellCnt BF AM) Type) [facility] [id number] 15:00:00 Test Item Value Reference Range Interpretation Comments Color BF (test code = Yellow (06/13/22 10:00 Color BF) AM) [facility] [id number] 15:00:00 Test Item Value Reference Range Interpretation Comments Clarity BF (test code = Clear (06/13/22 10:00 Clarity BF) AM) [facility]2022-07-25 15:00:00 Test Item Value Reference Range Interpretation Comments Supernat BF (test code = Yellow *ABN*(06/13/22 Supernat BF) 10:00 AM) [facility]2022-07-25 15:00:00 Test Item Value Reference Range Interpretation Comments Nucleated Cells BF (test code = 273 Nucleated Cells BF) [facility]2022-07-25 15:00:00 Test Item Value Reference Range Interpretation Comments RBC BF (test code = RBC BF) 419 [facility]2022-07-25 15:00:00 Test Item Value Reference Range Interpretation Comments Neutrophils BF (test code = Neutrophils 10 [address]) [facility]2022-07-25 15:00:00 Test Item Value Reference Range Interpretation Comments Lymph BF (test code = Lymph BF) 36 [facility]2022-07-25 15:00:00 Test Item Value Reference Range Interpretation Comments Macrophage BF (test code = Macrophage [address]) [facility]2022-07-25 15:00:00 Test Item Value Reference Range Interpretation Comments Meso BF (test code = Meso BF) 6 [facility]2022-07-25 15:00:00 Test Item Value Reference Range Interpretation Comments Comment BF (test Differential confirmed. code = Comment BF) mesothlial cells and mixed inflammation. performed by Dr. Rosendo Chapa [facility]2022-07-25 15:00:00 Test Item Value Reference Range Interpretation Comments Glucose BF (test code = Glucose BF) 154 [facility]2022-07-25 15:00:00 Test Item Value Reference Range Interpretation Comments Gluc BF Type (test Pleural *NA*(06/13/22 code = Gluc BF Type) 10:00 AM) [facility]2022-07-25 15:00:00 Test Item Value Reference Range Interpretation Comments LDH BF (test code = LDH BF) 74 [facility]2022-07-25 15:00:00 Test Item Value Reference Range Interpretation Comments LDH BF Type (test Pleural *NA*(06/13/22 code = LDH BF Type) 10:00 AM) [facility]2022-07-25 15:00:00 Test Item Value Reference Range Interpretation Comments pH BF Type (test code Pleural (06/13/22 10:00 = pH BF Type) AM) [facility] [id number] 15:00:00 Test Item Value Reference Range Interpretation Comments pH BF (test code = pH BF) 8.00 1 [facility] [id number] 15:00:00 Test Item Value Reference Range Interpretation Comments Protein BF (test code = Protein BF) 1.0 [facility] [id number] 15:00:00 Test Item Value Reference Range Interpretation Comments Prot BF Type (test Pleural *NA*(06/13/22 code = Prot BF Type) 10:00 AM) [facility] [id number] 15:00:00 Test Item Value Reference Range Interpretation Comments Gram Stain Report Few WBC's No Organisms (test code = Gram Seen Stain Report) [facility] Fl[facility]/[id number] 15:00:00 Test Item Value Reference Range Interpretation Comments Culture: Aspirate/Body Fluid/Tissue No Growth (test code = Culture: Aspirate/Body Fluid/Tissue) [id number] 15:00:00 Test Item Value Reference Range Interpretation Comments Albumin BF (test code = Albumin BF) 0.6 [facility] [id number] 15:00:00 Test Item Value Reference Range Interpretation Comments Alb BF Type (test Pleural *NA*(06/13/22 code = Alb BF Type) 10:00 AM) [id number] 15:00:00 Test Item Value Reference Range Interpretation Comments CellCnt BF Type (test Thoracen (06/13/22 10:00 code = CellCnt BF AM) Type) [facility] [id number] 15:00:00 Test Item Value Reference Range Interpretation Comments Color BF (test code = Yellow (06/13/22 10:00 Color BF) AM) [facility] [id number] 15:00:00 Test Item Value Reference Range Interpretation Comments Clarity BF (test code = Clear (06/13/22 10:00 Clarity BF) AM) [facility] [id number] 15:00:00 Test Item Value Reference Range Interpretation Comments Supernat BF (test code = Yellow *ABN*(06/13/22 Supernat BF) 10:00 AM) [facility]2022-07-25 15:00:00 Test Item Value Reference Range Interpretation Comments Nucleated Cells BF (test code = 273 Nucleated Cells BF) [facility]2022-07-25 15:00:00 Test Item Value Reference Range Interpretation Comments RBC BF (test code = RBC BF) 419 [facility]2022-07-25 15:00:00 Test Item Value Reference Range Interpretation Comments Neutrophils BF (test code = Neutrophils 10 [address]) [facility]2022-07-25 15:00:00 Test Item Value Reference Range Interpretation Comments Lymph BF (test code = Lymph BF) 36 [facility]2022-07-25 15:00:00 Test Item Value Reference Range Interpretation Comments Macrophage BF (test code = Macrophage [address]) [facility]2022-07-25 15:00:00 Test Item Value Reference Range Interpretation Comments Meso BF (test code = Meso BF) 6 [facility]2022-07-25 15:00:00 Test Item Value Reference Range Interpretation Comments Comment BF (test Differential confirmed. code = Comment BF) mesothlial cells and mixed inflammation. performed by Dr. Rosendo Chapa [facility]2022-07-25 15:00:00 Test Item Value Reference Range Interpretation Comments Glucose BF (test code = Glucose BF) 154 [facility]2022-07-25 15:00:00 Test Item Value Reference Range Interpretation Comments Gluc BF Type (test Pleural *NA*(06/13/22 code = Gluc BF Type) 10:00 AM) [facility]2022-07-25 15:00:00 Test Item Value Reference Range Interpretation Comments LDH BF (test code = LDH BF) 74 [facility]2022-07-25 15:00:00 Test Item Value Reference Range Interpretation Comments LDH BF Type (test Pleural *NA*(06/13/22 code = LDH BF Type) 10:00 AM) [facility]2022-07-25 15:00:00 Test Item Value Reference Range Interpretation Comments pH BF Type (test code Pleural (06/13/22 10:00 = pH BF Type) AM) [facility]2022-07-25 15:00:00 Test Item Value Reference Range Interpretation Comments pH BF (test code = pH BF) 8.[address] [facility]2022-07-25 15:00:00 Test Item Value Reference Range Interpretation Comments Protein BF (test code = Protein BF) 1.0 [facility] [id number] 15:00:00 Test Item Value Reference Range Interpretation Comments Prot BF Type (test Pleural *NA*(06/13/22 code = Prot BF Type) 10:00 AM) [facility] [id number] 15:00:00 Test Item Value Reference Range Interpretation Comments Gram Stain Report Few WBC's No Organisms (test code = Gram Seen Stain Report) [facility]: Aspirate/Body Fluid/[id number] 15:00:00 Test Item Value Reference Range Interpretation Comments Culture: Aspirate/Body Fluid/Tissue No Growth (test code = Culture: Aspirate/Body Fluid/Tissue) [facility]2022-07-25 15:00:00 Test Item Value Reference Range Interpretation Comments Albumin BF (test code = Albumin BF) 0.6 [facility]2022-07-25 15:00:00 Test Item Value Reference Range Interpretation Comments Alb BF Type (test Pleural *NA*(06/13/22 code = Alb BF Type) 10:00 AM) [facility]2022-07-25 15:00:00 Test Item Value Reference Range Interpretation Comments CellCnt BF Type (test Thoracen (06/13/22 10:00 code = CellCnt BF AM) Type) [facility]2022-07-25 15:00:00 Test Item Value Reference Range Interpretation Comments Color BF (test code = Yellow (06/13/22 10:00 Color BF) AM) [facility]2022-07-25 15:00:00 Test Item Value Reference Range Interpretation Comments Clarity BF (test code = Clear (06/13/22 10:00 Clarity BF) AM) [facility]2022-07-25 15:00:00 Test Item Value Reference Range Interpretation Comments Supernat BF (test code = Yellow *ABN*(06/13/22 Supernat BF) 10:00 AM) [facility]2022-07-25 15:00:00 Test Item Value Reference Range Interpretation Comments Nucleated Cells BF (test code = 273 Nucleated Cells BF) [facility]2022-07-25 15:00:00 Test Item Value Reference Range Interpretation Comments RBC BF (test code = RBC BF) 419 [facility]2022-07-25 15:00:00 Test Item Value Reference Range Interpretation Comments Neutrophils BF (test code = Neutrophils [address]) [facility]2022-07-25 15:00:00 Test Item Value Reference Range Interpretation Comments Lymph BF (test code = Lymph BF) 36 [facility]2022-07-25 15:00:00 Test Item Value Reference Range Interpretation Comments Macrophage BF (test code = Macrophage [address]) [facility]2022-07-25 15:00:00 Test Item Value Reference Range Interpretation Comments Meso BF (test code = Meso BF) 6 [facility]2022-07-25 15:00:00 Test Item Value Reference Range Interpretation Comments Comment BF (test Differential confirmed. code = Comment BF) mesothlial cells and mixed inflammation. performed by Dr. Rosendo Chapa [facility]2022-07-25 15:00:00 Test Item Value Reference Range Interpretation Comments Glucose BF (test code = Glucose BF) 154 [facility]2022-07-25 15:00:00 Test Item Value Reference Range Interpretation Comments Gluc BF Type (test Pleural *NA*(06/13/22 code = Gluc BF Type) 10:00 AM) [facility]2022-07-25 15:00:00 Test Item Value Reference Range Interpretation Comments LDH BF (test code = LDH BF) 74 [facility]2022-07-25 15:00:00 Test Item Value Reference Range Interpretation Comments LDH BF Type (test Pleural *NA*(06/13/22 code = LDH BF Type) 10:00 AM) [facility]2022-07-25 15:00:00 Test Item Value Reference Range Interpretation Comments pH BF Type (test code Pleural (06/13/22 10:00 = pH BF Type) AM) [facility]2022-07-25 15:00:00 Test Item Value Reference Range Interpretation Comments pH BF (test code = pH BF) 8.[address] [facility]2022-07-25 15:00:00 Test Item Value Reference Range Interpretation Comments Protein BF (test code = Protein BF) 1.0 [facility]2022-07-25 15:00:00 Test Item Value Reference Range Interpretation Comments Prot BF Type (test Pleural *NA*(06/13/22 code = Prot BF Type) 10:00 AM) [facility] [id number] 15:00:00 Test Item Value Reference Range Interpretation Comments Gram Stain Report Few WBC's No Organisms (test code = Gram Seen Stain Report) [facility]Culture: Aspirate/Body Fluid/[id number] 15:00:00 Test Item Value Reference Range Interpretation Comments Culture: Aspirate/Body Fluid/Tissue No Growth (test code = Culture: Aspirate/Body Fluid/Tissue) [facility] [id number] 15:00:00 Test Item Value Reference Range Interpretation Comments Albumin BF (test code = Albumin BF) 0.6 [facility]2022-07-25 15:00:00 Test Item Value Reference Range Interpretation Comments Alb BF Type (test Pleural *NA*(06/13/22 code = Alb BF Type) 10:00 AM) [facility]2022-07-25 15:00:00 Test Item Value Reference Range Interpretation Comments CellCnt BF Type (test Thoracen (06/13/22 10:00 code = CellCnt BF AM) Type) [facility]2022-07-25 15:00:00 Test Item Value Reference Range Interpretation Comments Color BF (test code = Yellow (06/13/22 10:00 Color BF) AM) [facility]2022-07-25 15:00:00 Test Item Value Reference Range Interpretation Comments Clarity BF (test code = Clear (06/13/22 10:00 Clarity BF) AM) [facility]2022-07-25 15:00:00 Test Item Value Reference Range Interpretation Comments Supernat BF (test code = Yellow *ABN*(06/13/22 Supernat BF) 10:00 AM) [facility]2022-07-25 15:00:00 Test Item Value Reference Range Interpretation Comments Nucleated Cells BF (test code = 273 Nucleated Cells BF) [facility]2022-07-25 15:00:00 Test Item Value Reference Range Interpretation Comments RBC BF (test code = RBC BF) 419 [facility]2022-07-25 15:00:00 Test Item Value Reference Range Interpretation Comments Neutrophils BF (test code = Neutrophils [address]) [facility]2022-07-25 15:00:00 Test Item Value Reference Range Interpretation Comments Lymph BF (test code = Lymph BF) 36 [facility]2022-07-25 15:00:00 Test Item Value Reference Range Interpretation Comments Macrophage BF (test code = Macrophage [address]) [facility]2022-07-25 15:00:00 Test Item Value Reference Range Interpretation Comments Meso BF (test code = Meso BF) 6 [facility]2022-07-25 15:00:00 Test Item Value Reference Range Interpretation Comments Comment BF (test Differential confirmed. code = Comment BF) mesothlial cells and mixed inflammation. performed by Dr. Rosendo Chapa [facility]2022-07-25 15:00:00 Test Item Value Reference Range Interpretation Comments Glucose BF (test code = Glucose BF) 154 [facility]2022-07-25 15:00:00 Test Item Value Reference Range Interpretation Comments Gluc BF Type (test Pleural *NA*(06/13/22 code = Gluc BF Type) 10:00 AM) [facility]2022-07-25 15:00:00 Test Item Value Reference Range Interpretation Comments LDH BF (test code = LDH BF) 74 [facility]2022-07-25 15:00:00 Test Item Value Reference Range Interpretation Comments LDH BF Type (test Pleural *NA*(06/13/22 code = LDH BF Type) 10:00 AM) [facility]2022-07-25 15:00:00 Test Item Value Reference Range Interpretation Comments pH BF Type (test code Pleural (06/13/22 10:00 = pH BF Type) AM) [facility]2022-07-25 15:00:00 Test Item Value Reference Range Interpretation Comments pH BF (test code = pH BF) 8.[address] [facility]2022-07-25 15:00:00 Test Item Value Reference Range Interpretation Comments Protein BF (test code = Protein BF) 1.0 [facility]2022-07-25 15:00:00 Test Item Value Reference Range Interpretation Comments Prot BF Type (test Pleural *NA*(06/13/22 code = Prot BF Type) 10:00 AM) [facility] [id number] 15:00:00 Test Item Value Reference Range Interpretation Comments Gram Stain Report Few WBC's No Organisms (test code = Gram Seen Stain Report) [facility]Culture: Aspirate/Body Fluid/[id number] 15:00:00 Test Item Value Reference Range Interpretation Comments Culture: Aspirate/Body Fluid/Tissue No Growth (test code = Culture: Aspirate/Body Fluid/Tissue) [facility]2022-07-25 15:00:00 Test Item Value Reference Range Interpretation Comments Albumin BF (test code = Albumin BF) 0.6 [facility]2022-07-25 15:00:00 Test Item Value Reference Range Interpretation Comments Alb BF Type (test Pleural *NA*(06/13/22 code = Alb BF Type) 10:00 AM) [facility]2022-07-25 15:00:00 Test Item Value Reference Range Interpretation Comments CellCnt BF Type (test Thoracen (06/13/22 10:00 code = CellCnt BF AM) Type) [facility]2022-07-25 15:00:00 Test Item Value Reference Range Interpretation Comments Color BF (test code = Yellow (06/13/22 10:00 Color BF) AM) [facility]2022-07-25 15:00:00 Test Item Value Reference Range Interpretation Comments Clarity BF (test code = Clear (06/13/22 10:00 Clarity BF) AM) [facility]2022-07-25 15:00:00 Test Item Value Reference Range Interpretation Comments Supernat BF (test code = Yellow *ABN*(06/13/22 Supernat BF) 10:00 AM) [facility]2022-07-25 15:00:00 Test Item Value Reference Range Interpretation Comments Nucleated Cells BF (test code = 273 Nucleated Cells BF) [facility]2022-07-25 15:00:00 Test Item Value Reference Range Interpretation Comments RBC BF (test code = RBC BF) 419 [facility]2022-07-25 15:00:00 Test Item Value Reference Range Interpretation Comments Neutrophils BF (test code = Neutrophils 10 BF) [facility]2022-07-25 15:00:00 Test Item Value Reference Range Interpretation Comments Lymph BF (test code = Lymph BF) 36 [facility]2022-07-25 15:00:00 Test Item Value Reference Range Interpretation Comments Macrophage BF (test code = Macrophage 48 BF) [facility] [id number] 15:00:00 Test Item Value Reference Range Interpretation Comments Meso BF (test code = Meso BF) 6 [facility]2022-07-25 15:00:00 Test Item Value Reference Range Interpretation Comments Comment BF (test Differential confirmed. code = Comment BF) mesothlial cells and mixed inflammation. performed by Dr. Rosendo Chapa [facility] [id number] 15:00:00 Test Item Value Reference Range Interpretation Comments Glucose BF (test code = Glucose BF) 154 [facility] [id number] 15:00:00 Test Item Value Reference Range Interpretation Comments Gluc BF Type (test Pleural *NA*(06/13/22 code = Gluc BF Type) 10:00 AM) [facility]2022-07-25 15:00:00 Test Item Value Reference Range Interpretation Comments LDH BF (test code = LDH BF) 74 [facility]2022-07-25 15:00:00 Test Item Value Reference Range Interpretation Comments LDH BF Type (test Pleural *NA*(06/13/22 code = LDH BF Type) 10:00 AM) [facility] [id number] 15:00:00 Test Item Value Reference Range Interpretation Comments pH BF Type (test code Pleural (06/13/22 10:00 = pH BF Type) AM) [facility]2022-07-25 15:00:00 Test Item Value Reference Range Interpretation Comments pH BF (test code = pH BF) 8.00 1 [facility] [id number] 15:00:00 Test Item Value Reference Range Interpretation Comments Protein BF (test code = Protein BF) 1.0 [facility] [id number] 15:00:00 Test Item Value Reference Range Interpretation Comments Prot BF Type (test Pleural *NA*(06/13/22 code = Prot BF Type) 10:00 AM) [facility] [id number] 15:00:00 Test Item Value Reference Range Interpretation Comments Gram Stain Report Few WBC's No Organisms (test code = Gram Seen Stain Report) [facility]: Aspirate/Body Fluid/[id number] 15:00:00 Test Item Value Reference Range Interpretation Comments Culture: Aspirate/Body Fluid/Tissue No Growth (test code = Culture: Aspirate/Body Fluid/Tissue) [facility]2022-07-25 15:00:00 Test Item Value Reference Range Interpretation Comments Albumin BF (test code = Albumin BF) 0.6 [facility]2022-07-25 15:00:00 Test Item Value Reference Range Interpretation Comments Alb BF Type (test Pleural *NA*(06/13/22 code = Alb BF Type) 10:00 AM) [facility]2022-07-25 15:00:00 Test Item Value Reference Range Interpretation Comments CellCnt BF Type (test Thoracen (06/13/22 10:00 code = CellCnt BF AM) Type) [facility]2022-07-25 15:00:00 Test Item Value Reference Range Interpretation Comments Color BF (test code = Yellow (06/13/22 10:00 Color BF) AM) [facility]2022-07-25 15:00:00 Test Item Value Reference Range Interpretation Comments Clarity BF (test code = Clear (06/13/22 10:00 Clarity BF) AM) [facility]2022-07-25 15:00:00 Test Item Value Reference Range Interpretation Comments Supernat BF (test code = Yellow *ABN*(06/13/22 Supernat BF) 10:00 AM) [facility]2022-07-25 15:00:00 Test Item Value Reference Range Interpretation Comments Nucleated Cells BF (test code = 273 Nucleated Cells BF) [facility]2022-07-25 15:00:00 Test Item Value Reference Range Interpretation Comments RBC BF (test code = RBC BF) 419 [facility]2022-07-25 15:00:00 Test Item Value Reference Range Interpretation Comments Neutrophils BF (test code = Neutrophils 10 BF) [facility]2022-07-25 15:00:00 Test Item Value Reference Range Interpretation Comments Lymph BF (test code = Lymph BF) 36 [facility]2022-07-25 15:00:00 Test Item Value Reference Range Interpretation Comments Macrophage BF (test code = Macrophage 48 BF) [facility]2022-07-25 15:00:00 Test Item Value Reference Range Interpretation Comments Meso BF (test code = Meso BF) 6 [facility]2022-07-25 15:00:00 Test Item Value Reference Range Interpretation Comments Comment BF (test Differential confirmed. code = Comment BF) mesothlial cells and mixed inflammation. performed by Dr. Rosendo Chapa [facility]2022-07-25 15:00:00 Test Item Value Reference Range Interpretation Comments Glucose BF (test code = Glucose BF) 154 [facility]2022-07-25 15:00:00 Test Item Value Reference Range Interpretation Comments Gluc BF Type (test Pleural *NA*(06/13/22 code = Gluc BF Type) 10:00 AM) [facility]2022-07-25 15:00:00 Test Item Value Reference Range Interpretation Comments LDH BF (test code = LDH BF) 74 [facility]2022-07-25 15:00:00 Test Item Value Reference Range Interpretation Comments LDH BF Type (test Pleural *NA*(06/13/22 code = LDH BF Type) 10:00 AM) [facility]2022-07-25 15:00:00 Test Item Value Reference Range Interpretation Comments pH BF Type (test code Pleural (06/13/22 10:00 = pH BF Type) AM) [facility]2022-07-25 15:00:00 Test Item Value Reference Range Interpretation Comments pH BF (test code = pH BF) 8.[address] [facility]2022-07-25 15:00:00 Test Item Value Reference Range Interpretation Comments Protein BF (test code = Protein BF) 1.0 [facility]2022-07-25 15:00:00 Test Item Value Reference Range Interpretation Comments Prot BF Type (test Pleural *NA*(06/13/22 code = Prot BF Type) 10:00 AM) [facility] [id number] 15:00:00 Test Item Value Reference Range Interpretation Comments Gram Stain Report Few WBC's No Organisms (test code = Gram Seen Stain Report) [facility] Aspirate/Body Fluid/[id number] 15:00:00 Test Item Value Reference Range Interpretation Comments Culture: Aspirate/Body Fluid/Tissue No Growth (test code = Culture: Aspirate/Body Fluid/Tissue) [facility]2022-07-25 15:00:00 Test Item Value Reference Range Interpretation Comments Albumin BF (test code = Albumin BF) 0.6 [facility]2022-07-25 15:00:00 Test Item Value Reference Range Interpretation Comments Alb BF Type (test Pleural *NA*(06/13/22 code = Alb BF Type) 10:00 AM) [facility]2022-07-25 15:00:00 Test Item Value Reference Range Interpretation Comments CellCnt BF Type (test Thorac[place] (06/13/22 10:00 code = CellCnt BF AM) Type) [facility]2022-07-25 15:00:00 Test Item Value Reference Range Interpretation Comments Color BF (test code = Yellow (06/13/22 10:00 Color BF) AM) [facility]2022-07-25 15:00:00 Test Item Value Reference Range Interpretation Comments Clarity BF (test code = Clear (06/13/22 10:00 Clarity BF) AM) [facility]2022-07-25 15:00:00 Test Item Value Reference Range Interpretation Comments Supernat BF (test code = Yellow *ABN*(06/13/22 Supernat BF) 10:00 AM) [facility]2022-07-25 15:00:00 Test Item Value Reference Range Interpretation Comments Nucleated Cells BF (test code = 273 Nucleated Cells BF) [facility]2022-07-25 15:00:00 Test Item Value Reference Range Interpretation Comments RBC BF (test code = RBC BF) 419 [facility]2022-07-25 15:00:00 Test Item Value Reference Range Interpretation Comments Neutrophils BF (test code = Neutrophils 10 BF) [facility]2022-07-25 15:00:00 Test Item Value Reference Range Interpretation Comments Lymph BF (test code = Lymph BF) 36 [facility]2022-07-25 15:00:00 Test Item Value Reference Range Interpretation Comments Macrophage BF (test code = Macrophage 48 BF) [facility]2022-07-25 15:00:00 Test Item Value Reference Range Interpretation Comments Meso BF (test code = Meso BF) 6 [facility]2022-07-25 15:00:00 Test Item Value Reference Range Interpretation Comments Comment BF (test Differential confirmed. code = Comment BF) mesothlial cells and mixed inflammation. performed by Dr. Rosendo Chapa [facility]2022-07-25 15:00:00 Test Item Value Reference Range Interpretation Comments Glucose BF (test code = Glucose BF) 154 [facility] [id number] 15:00:00 Test Item Value Reference Range Interpretation Comments Gluc BF Type (test Pleural *NA*(06/13/22 code = Gluc BF Type) 10:00 AM) [facility] [id number] 15:00:00 Test Item Value Reference Range Interpretation Comments LDH BF (test code = LDH BF) 74 [facility] [id number] 15:00:00 Test Item Value Reference Range Interpretation Comments LDH BF Type (test Pleural *NA*(06/13/22 code = LDH BF Type) 10:00 AM) [facility] [id number] 15:00:00 Test Item Value Reference Range Interpretation Comments pH BF Type (test code Pleural (06/13/22 10:00 = pH BF Type) AM) [facility]2022-07-25 15:00:00 Test Item Value Reference Range Interpretation Comments pH BF (test code = pH BF) 8.00 1 [facility] [id number] 15:00:00 Test Item Value Reference Range Interpretation Comments Protein BF (test code = Protein BF) 1.0 [facility] [id number] 15:00:00 Test Item Value Reference Range Interpretation Comments Prot BF Type (test Pleural *NA*(06/13/22 code = Prot BF Type) 10:00 AM) [facility] [id number] 15:00:00 Test Item Value Reference Range Interpretation Comments Gram Stain Report Few WBC's No Organisms (test code = Gram Seen Stain Report) [facility] Aspirate/Body Fluid/[id number] 15:00:00 Test Item Value Reference Range Interpretation Comments Culture: Aspirate/Body Fluid/Tissue No Growth (test code = Culture: Aspirate/Body Fluid/Tissue) [facility] [id number] 15:00:00 Test Item Value Reference Range Interpretation Comments Albumin BF (test code = Albumin BF) 0.6 [facility] [id number] 15:00:00 Test Item Value Reference Range Interpretation Comments Alb BF Type (test Pleural *NA*(06/13/22 code = Alb BF Type) 10:00 AM) [facility]2022-07-25 15:00:00 Test Item Value Reference Range Interpretation Comments CellCnt BF Type (test Thoracen (06/13/22 10:00 code = CellCnt BF AM) Type) [facility]2022-07-25 15:00:00 Test Item Value Reference Range Interpretation Comments Color BF (test code = Yellow (06/13/22 10:00 Color BF) AM) [facility]2022-07-25 15:00:00 Test Item Value Reference Range Interpretation Comments Clarity BF (test code = Clear (06/13/22 10:00 Clarity BF) AM) [facility]2022-07-25 15:00:00 Test Item Value Reference Range Interpretation Comments Supernat BF (test code = Yellow *ABN*(06/13/22 Supernat BF) 10:00 AM) [facility]2022-07-25 15:00:00 Test Item Value Reference Range Interpretation Comments Nucleated Cells BF (test code = 273 Nucleated Cells BF) [facility]2022-07-25 15:00:00 Test Item Value Reference Range Interpretation Comments RBC BF (test code = RBC BF) 419 [facility]2022-07-25 15:00:00 Test Item Value Reference Range Interpretation Comments Neutrophils BF (test code = Neutrophils 10 BF) [facility]2022-07-25 15:00:00 Test Item Value Reference Range Interpretation Comments Lymph BF (test code = Lymph BF) 36 [facility]2022-07-25 15:00:00 Test Item Value Reference Range Interpretation Comments Macrophage BF (test code = Macrophage 48 BF) [facility]2022-07-25 15:00:00 Test Item Value Reference Range Interpretation Comments Meso BF (test code = Meso BF) 6 [facility]2022-07-25 15:00:00 Test Item Value Reference Range Interpretation Comments Comment BF (test Differential confirmed. code = Comment BF) mesothlial cells and mixed inflammation. performed by Dr. Rosendo Chapa [facility]2022-07-25 15:00:00 Test Item Value Reference Range Interpretation Comments Glucose BF (test code = Glucose BF) 154 [facility]2022-07-25 15:00:00 Test Item Value Reference Range Interpretation Comments Gluc BF Type (test Pleural *NA*(06/13/22 code = Gluc BF Type) 10:00 AM) [facility] [id number] 15:00:00 Test Item Value Reference Range Interpretation Comments LDH BF (test code = LDH BF) 74 [facility] [id number] 15:00:00 Test Item Value Reference Range Interpretation Comments LDH BF Type (test Pleural *NA*(06/13/22 code = LDH BF Type) 10:00 AM) [facility] [id number] 15:00:00 Test Item Value Reference Range Interpretation Comments pH BF Type (test code Pleural (06/13/22 10:00 = pH BF Type) AM) [facility] [id number] 15:00:00 Test Item Value Reference Range Interpretation Comments pH BF (test code = pH BF) 8.00 1 [facility] [id number] 15:00:00 Test Item Value Reference Range Interpretation Comments Protein BF (test code = Protein BF) 1.0 [facility] [id number] 15:00:00 Test Item Value Reference Range Interpretation Comments Prot BF Type (test Pleural *NA*(06/13/22 code = Prot BF Type) 10:00 AM) [facility] [id number] 15:00:00 Test Item Value Reference Range Interpretation Comments Gram Stain Report Few WBC's No Organisms (test code = Gram Seen Stain Report) [facility]Culture: Aspirate/Body Fluid/[id number] 15:00:00 Test Item Value Reference Range Interpretation Comments Culture: Aspirate/Body Fluid/Tissue No Growth (test code = Culture: Aspirate/Body Fluid/Tissue) [facility] [id number] 15:00:00 Test Item Value Reference Range Interpretation Comments Albumin BF (test code = Albumin BF) 0.6 [facility] [id number] 15:00:00 Test Item Value Reference Range Interpretation Comments Alb BF Type (test Pleural *NA*(06/13/22 code = Alb BF Type) 10:00 AM) [facility] [id number] 15:00:00 Test Item Value Reference Range Interpretation Comments CellCnt BF Type (test Thoracen (06/13/22 10:00 code = CellCnt BF AM) Type) [facility]2022-07-25 15:00:00 Test Item Value Reference Range Interpretation Comments Color BF (test code = Yellow (06/13/22 10:00 Color BF) AM) [facility]2022-07-25 15:00:00 Test Item Value Reference Range Interpretation Comments Clarity BF (test code = Clear (06/13/22 10:00 Clarity BF) AM) [facility]2022-07-25 15:00:00 Test Item Value Reference Range Interpretation Comments Supernat BF (test code = Yellow *ABN*(06/13/22 Supernat BF) 10:00 AM) [facility]2022-07-25 15:00:00 Test Item Value Reference Range Interpretation Comments Nucleated Cells BF (test code = 273 Nucleated Cells BF) [facility]2022-07-25 15:00:00 Test Item Value Reference Range Interpretation Comments RBC BF (test code = RBC BF) 419 [facility]2022-07-25 15:00:00 Test Item Value Reference Range Interpretation Comments Neutrophils BF (test code = Neutrophils 10 BF) [facility]2022-07-25 15:00:00 Test Item Value Reference Range Interpretation Comments Lymph BF (test code = Lymph BF) 36 [facility]2022-07-25 15:00:00 Test Item Value Reference Range Interpretation Comments Macrophage BF (test code = Macrophage 48 BF) [facility]2022-07-25 15:00:00 Test Item Value Reference Range Interpretation Comments Meso BF (test code = Meso BF) 6 [facility]2022-07-25 15:00:00 Test Item Value Reference Range Interpretation Comments Comment BF (test Differential confirmed. code = Comment BF) mesothlial cells and mixed inflammation. performed by Dr. Rosendo Chapa [facility]2022-07-25 15:00:00 Test Item Value Reference Range Interpretation Comments Glucose BF (test code = Glucose BF) 154 [facility]2022-07-25 15:00:00 Test Item Value Reference Range Interpretation Comments Gluc BF Type (test Pleural *NA*(06/13/22 code = Gluc BF Type) 10:00 AM) [facility]2022-07-25 15:00:00 Test Item Value Reference Range Interpretation Comments LDH BF (test code = LDH BF) 74 [facility] [id number] 15:00:00 Test Item Value Reference Range Interpretation Comments LDH BF Type (test Pleural *NA*(06/13/22 code = LDH BF Type) 10:00 AM) [facility] [id number] 15:00:00 Test Item Value Reference Range Interpretation Comments pH BF Type (test code Pleural (06/13/22 10:00 = pH BF Type) AM) [facility] [id number] 15:00:00 Test Item Value Reference Range Interpretation Comments pH BF (test code = pH BF) 8.00 1 [facility] [id number] 15:00:00 Test Item Value Reference Range Interpretation Comments Protein BF (test code = Protein BF) 1.0 [facility] [id number] 15:00:00 Test Item Value Reference Range Interpretation Comments Prot BF Type (test Pleural *NA*(06/13/22 code = Prot BF Type) 10:00 AM) [facility] [id number] 15:00:00 Test Item Value Reference Range Interpretation Comments Gram Stain Report Few WBC's No Organisms (test code = Gram Seen Stain Report) [facility]Culture: Aspirate/Body Fluid/[id number] 15:00:00 Test Item Value Reference Range Interpretation Comments Culture: Aspirate/Body Fluid/Tissue No Growth (test code = Culture: Aspirate/Body Fluid/Tissue) [facility] [id number] 15:00:00 Test Item Value Reference Range Interpretation Comments Albumin BF (test code = Albumin BF) 0.6 [facility] [id number] 15:00:00 Test Item Value Reference Range Interpretation Comments Alb BF Type (test Pleural *NA*(06/13/22 code = Alb BF Type) 10:00 AM) [facility] [id number] 15:00:00 Test Item Value Reference Range Interpretation Comments CellCnt BF Type (test Thoracen (06/13/22 10:00 code = CellCnt BF AM) Type) [facility] [id number] 15:00:00 Test Item Value Reference Range Interpretation Comments Color BF (test code = Yellow (06/13/22 10:00 Color BF) AM) [facility]2022-07-25 15:00:00 Test Item Value Reference Range Interpretation Comments Clarity BF (test code = Clear (06/13/22 10:00 Clarity BF) AM) [facility]2022-07-25 15:00:00 Test Item Value Reference Range Interpretation Comments Supernat BF (test code = Yellow *ABN*(06/13/22 Supernat BF) 10:00 AM) [facility]2022-07-25 15:00:00 Test Item Value Reference Range Interpretation Comments Nucleated Cells BF (test code = 273 Nucleated Cells BF) [facility]2022-07-25 15:00:00 Test Item Value Reference Range Interpretation Comments RBC BF (test code = RBC BF) 419 [facility]2022-07-25 15:00:00 Test Item Value Reference Range Interpretation Comments Neutrophils BF (test code = Neutrophils 10 BF) [facility]2022-07-25 15:00:00 Test Item Value Reference Range Interpretation Comments Lymph BF (test code = Lymph BF) 36 [facility]2022-07-25 15:00:00 Test Item Value Reference Range Interpretation Comments Macrophage BF (test code = Macrophage 48 BF) [facility]2022-07-25 15:00:00 Test Item Value Reference Range Interpretation Comments Meso BF (test code = Meso BF) 6 [facility]2022-07-25 15:00:00 Test Item Value Reference Range Interpretation Comments Comment BF (test Differential confirmed. code = Comment BF) mesothlial cells and mixed inflammation. performed by Dr. Rosendo Chapa [facility]2022-07-25 15:00:00 Test Item Value Reference Range Interpretation Comments Glucose BF (test code = Glucose BF) 154 [facility]2022-07-25 15:00:00 Test Item Value Reference Range Interpretation Comments Gluc BF Type (test Pleural *NA*(06/13/22 code = Gluc BF Type) 10:00 AM) [facility]2022-07-25 15:00:00 Test Item Value Reference Range Interpretation Comments LDH BF (test code = LDH BF) 74 [facility]2022-07-25 15:00:00 Test Item Value Reference Range Interpretation Comments LDH BF Type (test Pleural *NA*(06/13/22 code = LDH BF Type) 10:00 AM) [facility] [id number] 15:00:00 Test Item Value Reference Range Interpretation Comments pH BF Type (test code Pleural (06/13/22 10:00 = pH BF Type) AM) [facility] [id number] 15:00:00 Test Item Value Reference Range Interpretation Comments pH BF (test code = pH BF) 8.00 1 [facility] [id number] 15:00:00 Test Item Value Reference Range Interpretation Comments Protein BF (test code = Protein BF) 1.0 [facility] [id number] 15:00:00 Test Item Value Reference Range Interpretation Comments Prot BF Type (test Pleural *NA*(06/13/22 code = Prot BF Type) 10:00 AM) [facility] [id number] 15:00:00 Test Item Value Reference Range Interpretation Comments Gram Stain Report Few WBC's No Organisms (test code = Gram Seen Stain Report) [facility]: Aspirate/Body Fluid/[id number] 15:00:00 Test Item Value Reference Range Interpretation Comments Culture: Aspirate/Body Fluid/Tissue No Growth (test code = Culture: Aspirate/Body Fluid/Tissue) [facility]2022-07-25 15:00:00 Test Item Value Reference Range Interpretation Comments Albumin BF (test code = Albumin BF) 0.6 [facility] [id number] 15:00:00 Test Item Value Reference Range Interpretation Comments Alb BF Type (test Pleural *NA*(06/13/22 code = Alb BF Type) 10:00 AM) [facility] [id number] 15:00:00 Test Item Value Reference Range Interpretation Comments CellCnt BF Type (test Thoracen (06/13/22 10:00 code = CellCnt BF AM) Type) [facility] [id number] 15:00:00 Test Item Value Reference Range Interpretation Comments Color BF (test code = Yellow (06/13/22 10:00 Color BF) AM) [facility]2022-07-25 15:00:00 Test Item Value Reference Range Interpretation Comments Clarity BF (test code = Clear (06/13/22 10:00 Clarity BF) AM) [facility] [id number] 15:00:00 Test Item Value Reference Range Interpretation Comments Supernat BF (test code = Yellow *ABN*(06/13/22 Supernat BF) 10:00 AM) [facility]2022-07-25 15:00:00 Test Item Value Reference Range Interpretation Comments Nucleated Cells BF (test code = 273 Nucleated Cells BF) [facility]2022-07-25 15:00:00 Test Item Value Reference Range Interpretation Comments RBC BF (test code = RBC BF) 419 [facility]2022-07-25 15:00:00 Test Item Value Reference Range Interpretation Comments Neutrophils BF (test code = Neutrophils 10 BF) [facility]2022-07-25 15:00:00 Test Item Value Reference Range Interpretation Comments Lymph BF (test code = Lymph BF) 36 [facility]2022-07-25 15:00:00 Test Item Value Reference Range Interpretation Comments Macrophage BF (test code = Macrophage 48 BF) [facility]2022-07-25 15:00:00 Test Item Value Reference Range Interpretation Comments Meso BF (test code = Meso BF) 6 [facility]2022-07-25 15:00:00 Test Item Value Reference Range Interpretation Comments Comment BF (test Differential confirmed. code = Comment BF) mesothlial cells and mixed inflammation. performed by Dr. Rosendo Chapa [facility]2022-07-25 15:00:00 Test Item Value Reference Range Interpretation Comments Glucose BF (test code = Glucose BF) 154 [facility]2022-07-25 15:00:00 Test Item Value Reference Range Interpretation Comments Gluc BF Type (test Pleural *NA*(06/13/22 code = Gluc BF Type) 10:00 AM) [facility]2022-07-25 15:00:00 Test Item Value Reference Range Interpretation Comments LDH BF (test code = LDH BF) 74 [facility]2022-07-25 15:00:00 Test Item Value Reference Range Interpretation Comments LDH BF Type (test Pleural *NA*(06/13/22 code = LDH BF Type) 10:00 AM) [facility]2022-07-25 15:00:00 Test Item Value Reference Range Interpretation Comments pH BF Type (test code Pleural (06/13/22 10:00 = pH BF Type) AM) [place] [id number] 15:00:00 Test Item Value Reference Range Interpretation Comments pH BF (test code = pH BF) 8.00 1 [facility] [id number] 15:00:00 Test Item Value Reference Range Interpretation Comments Protein BF (test code = Protein BF) 1.0 [facility] [id number] 15:00:00 Test Item Value Reference Range Interpretation Comments Prot BF Type (test Pleural *NA*(06/13/22 code = Prot BF Type) 10:00 AM) [facility] [id number] 15:00:00 Test Item Value Reference Range Interpretation Comments Gram Stain Report Few WBC's No Organisms (test code = Gram Seen Stain Report) [facility]: Aspirate/Body Fluid/[id number] 15:00:00 Test Item Value Reference Range Interpretation Comments Culture: Aspirate/Body Fluid/Tissue No Growth (test code = Culture: Aspirate/Body Fluid/Tissue) [facility] [id number] 15:00:00 Test Item Value Reference Range Interpretation Comments Albumin BF (test code = Albumin BF) 0.6 [facility] [id number] 15:00:00 Test Item Value Reference Range Interpretation Comments Alb BF Type (test Pleural *NA*(06/13/22 code = Alb BF Type) 10:00 AM) [facility] [id number] 15:00:00 Test Item Value Reference Range Interpretation Comments CellCnt BF Type (test Thoracen (06/13/22 10:00 code = CellCnt BF AM) Type) [facility] [id number] 15:00:00 Test Item Value Reference Range Interpretation Comments Color BF (test code = Yellow (06/13/22 10:00 Color BF) AM) [facility] [id number] 15:00:00 Test Item Value Reference Range Interpretation Comments Clarity BF (test code = Clear (06/13/22 10:00 Clarity BF) AM) [facility] [id number] 15:00:00 Test Item Value Reference Range Interpretation Comments Supernat BF (test code = Yellow *ABN*(06/13/22 Supernat BF) 10:00 AM) [facility] [id number] 15:00:00 Test Item Value Reference Range Interpretation Comments Nucleated Cells BF (test code = 273 Nucleated Cells BF) [facility]2022-07-25 15:00:00 Test Item Value Reference Range Interpretation Comments RBC BF (test code = RBC BF) 419 [facility]2022-07-25 15:00:00 Test Item Value Reference Range Interpretation Comments Neutrophils BF (test code = Neutrophils 10 BF) [facility]2022-07-25 15:00:00 Test Item Value Reference Range Interpretation Comments Lymph BF (test code = Lymph BF) 36 [facility]2022-07-25 15:00:00 Test Item Value Reference Range Interpretation Comments Macrophage BF (test code = Macrophage 48 BF) [facility]2022-07-25 15:00:00 Test Item Value Reference Range Interpretation Comments Meso BF (test code = Meso BF) 6 [facility]2022-07-25 15:00:00 Test Item Value Reference Range Interpretation Comments Comment BF (test Differential confirmed. code = Comment BF) mesothlial cells and mixed inflammation. performed by Dr. Rosendo Chapa [facility]2022-07-25 15:00:00 Test Item Value Reference Range Interpretation Comments Glucose BF (test code = Glucose BF) 154 [facility]2022-07-25 15:00:00 Test Item Value Reference Range Interpretation Comments Gluc BF Type (test Pleural *NA*(06/13/22 code = Gluc BF Type) 10:00 AM) [facility]2022-07-25 15:00:00 Test Item Value Reference Range Interpretation Comments LDH BF (test code = LDH BF) 74 [facility]2022-07-25 15:00:00 Test Item Value Reference Range Interpretation Comments LDH BF Type (test Pleural *NA*(06/13/22 code = LDH BF Type) 10:00 AM) [facility]2022-07-25 15:00:00 Test Item Value Reference Range Interpretation Comments pH BF Type (test code Pleural (06/13/22 10:00 = pH BF Type) AM) [facility]2022-07-25 15:00:00 Test Item Value Reference Range Interpretation Comments pH BF (test code = pH BF) 8.[address] [facility]2022-07-25 15:00:00 Test Item Value Reference Range Interpretation Comments Protein BF (test code = Protein BF) 1.0 [facility] [id number] 15:00:00 Test Item Value Reference Range Interpretation Comments Prot BF Type (test Pleural *NA*(06/13/22 code = Prot BF Type) 10:00 AM) [facility] [id number] 15:00:00 Test Item Value Reference Range Interpretation Comments Gram Stain Report Few WBC's No Organisms (test code = Gram Seen Stain Report) [facility] Aspirate/Body Fluid/[id number] 15:00:00 Test Item Value Reference Range Interpretation Comments Culture: Aspirate/Body Fluid/Tissue No Growth (test code = Culture: Aspirate/Body Fluid/Tissue) [facility] [facility] 15:00:00 Test Item Value Reference Range Interpretation Comments Albumin BF (test code = Albumin BF) 0.6 [facility]2022-07-25 15:00:00 Test Item Value Reference Range Interpretation Comments Alb BF Type (test Pleural *NA*(06/13/22 code = Alb BF Type) 10:00 AM) [facility]2022-07-25 15:00:00 Test Item Value Reference Range Interpretation Comments CellCnt BF Type (test Thoracen (06/13/22 10:00 code = CellCnt BF AM) Type) [facility]2022-07-25 15:00:00 Test Item Value Reference Range Interpretation Comments Color BF (test code = Yellow (06/13/22 10:00 Color BF) AM) [facility]2022-07-25 15:00:00 Test Item Value Reference Range Interpretation Comments Clarity BF (test code = Clear (06/13/22 10:00 Clarity BF) AM) [facility]2022-07-25 15:00:00 Test Item Value Reference Range Interpretation Comments Supernat BF (test code = Yellow *ABN*(06/13/22 Supernat BF) 10:00 AM) [facility]2022-07-25 15:00:00 Test Item Value Reference Range Interpretation Comments Nucleated Cells BF (test code = 273 Nucleated Cells BF) [facility]2022-07-25 15:00:00 Test Item Value Reference Range Interpretation Comments RBC BF (test code = RBC BF) 419 [facility]2022-07-25 15:00:00 Test Item Value Reference Range Interpretation Comments Neutrophils BF (test code = Neutrophils 10 [address]) [facility]2022-07-25 15:00:00 Test Item Value Reference Range Interpretation Comments Lymph BF (test code = Lymph BF) 36 [facility]2022-07-25 15:00:00 Test Item Value Reference Range Interpretation Comments Macrophage BF (test code = Macrophage 48 [address]) [facility]2022-07-25 15:00:00 Test Item Value Reference Range Interpretation Comments Meso BF (test code = Meso BF) 6 [facility]2022-07-25 15:00:00 Test Item Value Reference Range Interpretation Comments Comment BF (test Differential confirmed. code = Comment BF) mesothlial cells and mixed inflammation. performed by Dr. Rosendo Chapa [facility]2022-07-25 15:00:00 Test Item Value Reference Range Interpretation Comments Glucose BF (test code = Glucose BF) 154 [facility]2022-07-25 15:00:00 Test Item Value Reference Range Interpretation Comments Gluc BF Type (test Pleural *NA*(06/13/22 code = Gluc BF Type) 10:00 AM) [facility]2022-07-25 15:00:00 Test Item Value Reference Range Interpretation Comments LDH BF (test code = LDH BF) 74 [facility]2022-07-25 15:00:00 Test Item Value Reference Range Interpretation Comments LDH BF Type (test Pleural *NA*(06/13/22 code = LDH BF Type) 10:00 AM) [facility]2022-07-25 15:00:00 Test Item Value Reference Range Interpretation Comments pH BF Type (test code Pleural (06/13/22 10:00 = pH BF Type) AM) [facility]2022-07-25 15:00:00 Test Item Value Reference Range Interpretation Comments pH BF (test code = pH BF) 8.[address] [facility]2022-07-25 15:00:00 Test Item Value Reference Range Interpretation Comments Protein BF (test code = Protein BF) 1.0 [facility]2022-07-25 15:00:00 Test Item Value Reference Range Interpretation Comments Prot BF Type (test Pleural *NA*(06/13/22 code = Prot BF Type) 10:00 AM) [facility] [id number] 15:00:00 Test Item Value Reference Range Interpretation Comments Gram Stain Report Few WBC's No Organisms (test code = Gram Seen Stain Report) [facility] Aspirate/Body Fluid/[id number] 15:00:00 Test Item Value Reference Range Interpretation Comments Culture: Aspirate/Body Fluid/Tissue No Growth (test code = Culture: Aspirate/Body Fluid/Tissue) [facility] [id number] 15:00:00 Test Item Value Reference Range Interpretation Comments Albumin BF (test code = Albumin BF) 0.6 [facility]2022-07-25 15:00:00 Test Item Value Reference Range Interpretation Comments Alb BF Type (test Pleural *NA*(06/13/22 code = Alb BF Type) 10:00 AM) [facility]2022-07-25 15:00:00 Test Item Value Reference Range Interpretation Comments CellCnt BF Type (test Thoracen (06/13/22 10:00 code = CellCnt BF AM) Type) [facility]2022-07-25 15:00:00 Test Item Value Reference Range Interpretation Comments Color BF (test code = Yellow (06/13/22 10:00 Color BF) AM) [facility]2022-07-25 15:00:00 Test Item Value Reference Range Interpretation Comments Clarity BF (test code = Clear (06/13/22 10:00 Clarity BF) AM) [facility]2022-07-25 15:00:00 Test Item Value Reference Range Interpretation Comments Supernat BF (test code = Yellow *ABN*(06/13/22 Supernat BF) 10:00 AM) [facility]2022-07-25 15:00:00 Test Item Value Reference Range Interpretation Comments Nucleated Cells BF (test code = 273 Nucleated Cells BF) [facility]2022-07-25 15:00:00 Test Item Value Reference Range Interpretation Comments RBC BF (test code = RBC BF) 419 [facility]2022-07-25 15:00:00 Test Item Value Reference Range Interpretation Comments Neutrophils BF (test code = Neutrophils 10 [address]) [facility]2022-07-25 15:00:00 Test Item Value Reference Range Interpretation Comments Lymph BF (test code = Lymph BF) 36 [facility] [id number] 15:00:00 Test Item Value Reference Range Interpretation Comments Macrophage BF (test code = Macrophage 48 [address]) [facility]2022-07-25 15:00:00 Test Item Value Reference Range Interpretation Comments Meso BF (test code = Meso BF) 6 [facility]2022-07-25 15:00:00 Test Item Value Reference Range Interpretation Comments Comment BF (test Differential confirmed. code = Comment BF) mesothlial cells and mixed inflammation. performed by Dr. Rosendo Chapa [facility]2022-07-25 15:00:00 Test Item Value Reference Range Interpretation Comments Glucose BF (test code = Glucose BF) 154 [facility]2022-07-25 15:00:00 Test Item Value Reference Range Interpretation Comments Gluc BF Type (test Pleural *NA*(06/13/22 code = Gluc BF Type) 10:00 AM) [facility]2022-07-25 15:00:00 Test Item Value Reference Range Interpretation Comments LDH BF (test code = LDH BF) 74 [facility]2022-07-25 15:00:00 Test Item Value Reference Range Interpretation Comments LDH BF Type (test Pleural *NA*(06/13/22 code = LDH BF Type) 10:00 AM) [facility]2022-07-25 15:00:00 Test Item Value Reference Range Interpretation Comments pH BF Type (test code Pleural (06/13/22 10:00 = pH BF Type) AM) [facility]2022-07-25 15:00:00 Test Item Value Reference Range Interpretation Comments pH BF (test code = pH BF) 8.[address] [facility]2022-07-25 15:00:00 Test Item Value Reference Range Interpretation Comments Protein BF (test code = Protein BF) 1.0 [facility]2022-07-25 15:00:00 Test Item Value Reference Range Interpretation Comments Prot BF Type (test Pleural *NA*(06/13/22 code = Prot BF Type) 10:00 AM) [facility] [id number] 15:00:00 Test Item Value Reference Range Interpretation Comments Gram Stain Report Few WBC's No Organisms (test code = Gram Seen Stain Report) [facility] Aspirate/Body Fluid/[id number] 15:00:00 Test Item Value Reference Range Interpretation Comments Culture: Aspirate/Body Fluid/Tissue No Growth (test code = Culture: Aspirate/Body Fluid/Tissue) [facility]2022-07-25 15:00:00 Test Item Value Reference Range Interpretation Comments Albumin BF (test code = Albumin BF) 0.6 [facility]2022-07-25 15:00:00 Test Item Value Reference Range Interpretation Comments Alb BF Type (test Pleural *NA*(06/13/22 code = Alb BF Type) 10:00 AM) [facility]2022-07-25 15:00:00 Test Item Value Reference Range Interpretation Comments CellCnt BF Type (test Thorac[place] (06/13/22 10:00 code = CellCnt BF AM) Type) [facility]2022-07-25 15:00:00 Test Item Value Reference Range Interpretation Comments Color BF (test code = Yellow (06/13/22 10:00 Color BF) AM) [facility]2022-07-25 15:00:00 Test Item Value Reference Range Interpretation Comments Clarity BF (test code = Clear (06/13/22 10:00 Clarity BF) AM) [facility]2022-07-25 15:00:00 Test Item Value Reference Range Interpretation Comments Supernat BF (test code = Yellow *ABN*(06/13/22 Supernat BF) 10:00 AM) [facility]2022-07-25 15:00:00 Test Item Value Reference Range Interpretation Comments Nucleated Cells BF (test code = 273 Nucleated Cells BF) [facility]2022-07-25 15:00:00 Test Item Value Reference Range Interpretation Comments RBC BF (test code = RBC BF) 419 [facility]2022-07-25 15:00:00 Test Item Value Reference Range Interpretation Comments Neutrophils BF (test code = Neutrophils 10 [address]) [facility]2022-07-25 15:00:00 Test Item Value Reference Range Interpretation Comments Lymph BF (test code = Lymph BF) 36 [facility]2022-07-25 15:00:00 Test Item Value Reference Range Interpretation Comments Macrophage BF (test code = Macrophage 48 [address]) [facility]2022-07-25 15:00:00 Test Item Value Reference Range Interpretation Comments Meso BF (test code = Meso BF) 6 [facility]2022-07-25 15:00:00 Test Item Value Reference Range Interpretation Comments Comment BF (test Differential confirmed. code = Comment BF) mesothlial cells and mixed inflammation. performed by Dr. Rosendo Chapa [facility] [id number] 15:00:00 Test Item Value Reference Range Interpretation Comments Glucose BF (test code = Glucose BF) 154 [facility] [id number] 15:00:00 Test Item Value Reference Range Interpretation Comments Gluc BF Type (test Pleural *NA*(06/13/22 code = Gluc BF Type) 10:00 AM) [facility]2022-07-25 15:00:00 Test Item Value Reference Range Interpretation Comments LDH BF (test code = LDH BF) 74 [facility]2022-07-25 15:00:00 Test Item Value Reference Range Interpretation Comments LDH BF Type (test Pleural *NA*(06/13/22 code = LDH BF Type) 10:00 AM) [facility] [id number] 15:00:00 Test Item Value Reference Range Interpretation Comments pH BF Type (test code Pleural (06/13/22 10:00 = pH BF Type) AM) [facility]2022-07-25 15:00:00 Test Item Value Reference Range Interpretation Comments pH BF (test code = pH BF) 8.00 1 [facility] [id number] 15:00:00 Test Item Value Reference Range Interpretation Comments Protein BF (test code = Protein BF) 1.0 [facility] [id number] 15:00:00 Test Item Value Reference Range Interpretation Comments Prot BF Type (test Pleural *NA*(06/13/22 code = Prot BF Type) 10:00 AM) [facility] [id number] 15:00:00 Test Item Value Reference Range Interpretation Comments Gram Stain Report Few WBC's No Organisms (test code = Gram Seen Stain Report) [facility] Aspirate/Body Fluid/[id number] 15:00:00 Test Item Value Reference Range Interpretation Comments Culture: Aspirate/Body Fluid/Tissue No Growth (test code = Culture: Aspirate/Body Fluid/Tissue) [facility]2022-07-25 15:00:00 Test Item Value Reference Range Interpretation Comments Albumin BF (test code = Albumin BF) 0.6 [facility]2022-07-25 15:00:00 Test Item Value Reference Range Interpretation Comments Alb BF Type (test Pleural *NA*(06/13/22 code = Alb BF Type) 10:00 AM) [facility]2022-07-25 15:00:00 Test Item Value Reference Range Interpretation Comments CellCnt BF Type (test Thorac[place] (06/13/22 10:00 code = CellCnt BF AM) Type) [facility]2022-07-25 15:00:00 Test Item Value Reference Range Interpretation Comments Color BF (test code = Yellow (06/13/22 10:00 Color BF) AM) [facility]2022-07-25 15:00:00 Test Item Value Reference Range Interpretation Comments Clarity BF (test code = Clear (06/13/22 10:00 Clarity BF) AM) [facility]2022-07-25 15:00:00 Test Item Value Reference Range Interpretation Comments Supernat BF (test code = Yellow *ABN*(06/13/22 Supernat BF) 10:00 AM) [facility]2022-07-25 15:00:00 Test Item Value Reference Range Interpretation Comments Nucleated Cells BF (test code = 273 Nucleated Cells BF) [facility]2022-07-25 15:00:00 Test Item Value Reference Range Interpretation Comments RBC BF (test code = RBC BF) 419 [facility]2022-07-25 15:00:00 Test Item Value Reference Range Interpretation Comments Neutrophils BF (test code = Neutrophils 10 BF) [facility]2022-07-25 15:00:00 Test Item Value Reference Range Interpretation Comments Lymph BF (test code = Lymph BF) 36 [facility]2022-07-25 15:00:00 Test Item Value Reference Range Interpretation Comments Macrophage BF (test code = Macrophage 48 BF) [facility]2022-07-25 15:00:00 Test Item Value Reference Range Interpretation Comments Meso BF (test code = Meso BF) 6 [facility]2022-07-25 15:00:00 Test Item Value Reference Range Interpretation Comments Comment BF (test Differential confirmed. code = Comment BF) mesothlial cells and mixed inflammation. performed by Dr. Rosendo Chapa [facility] [id number] 15:00:00 Test Item Value Reference Range Interpretation Comments Glucose BF (test code = Glucose BF) 154 [facility] [id number] 15:00:00 Test Item Value Reference Range Interpretation Comments Gluc BF Type (test Pleural *NA*(06/13/22 code = Gluc BF Type) 10:00 AM) [facility] [id number] 15:00:00 Test Item Value Reference Range Interpretation Comments LDH BF (test code = LDH BF) 74 [facility] [id number] 15:00:00 Test Item Value Reference Range Interpretation Comments LDH BF Type (test Pleural *NA*(06/13/22 code = LDH BF Type) 10:00 AM) [facility] [id number] 15:00:00 Test Item Value Reference Range Interpretation Comments pH BF Type (test code Pleural (06/13/22 10:00 = pH BF Type) AM) [facility] [id number] 15:00:00 Test Item Value Reference Range Interpretation Comments pH BF (test code = pH BF) 8.00 1 [facility] [id number] 15:00:00 Test Item Value Reference Range Interpretation Comments Protein BF (test code = Protein BF) 1.0 [facility]2022-07-25 15:00:00 Test Item Value Reference Range Interpretation Comments Prot BF Type (test Pleural *NA*(06/13/22 code = Prot BF Type) 10:00 AM) [facility] [id number] 15:00:00 Test Item Value Reference Range Interpretation Comments Gram Stain Report Few WBC's No Organisms (test code = Gram Seen Stain Report) [facility]: Aspirate/Body Fluid/[id number] 15:00:00 Test Item Value Reference Range Interpretation Comments Culture: Aspirate/Body Fluid/Tissue No Growth (test code = Culture: Aspirate/Body Fluid/Tissue) [facility] [id number] 15:00:00 Test Item Value Reference Range Interpretation Comments Albumin BF (test code = Albumin BF) 0.6 [facility]2022-07-25 15:00:00 Test Item Value Reference Range Interpretation Comments Alb BF Type (test Pleural *NA*(06/13/22 code = Alb BF Type) 10:00 AM) [facility]2022-07-25 15:00:00 Test Item Value Reference Range Interpretation Comments CellCnt BF Type (test Thoracen (06/13/22 10:00 code = CellCnt BF AM) Type) [facility]2022-07-25 15:00:00 Test Item Value Reference Range Interpretation Comments Color BF (test code = Yellow (06/13/22 10:00 Color BF) AM) [facility]2022-07-25 15:00:00 Test Item Value Reference Range Interpretation Comments Clarity BF (test code = Clear (06/13/22 10:00 Clarity BF) AM) [facility]2022-07-25 15:00:00 Test Item Value Reference Range Interpretation Comments Supernat BF (test code = Yellow *ABN*(06/13/22 Supernat BF) 10:00 AM) [facility]2022-07-25 15:00:00 Test Item Value Reference Range Interpretation Comments Nucleated Cells BF (test code = 273 Nucleated Cells BF) [facility]2022-07-25 15:00:00 Test Item Value Reference Range Interpretation Comments RBC BF (test code = RBC BF) 419 [facility]2022-07-25 15:00:00 Test Item Value Reference Range Interpretation Comments Neutrophils BF (test code = Neutrophils 10 BF) [facility]2022-07-25 15:00:00 Test Item Value Reference Range Interpretation Comments Lymph BF (test code = Lymph BF) 36 [facility]2022-07-25 15:00:00 Test Item Value Reference Range Interpretation Comments Macrophage BF (test code = Macrophage 48 BF) [facility]2022-07-25 15:00:00 Test Item Value Reference Range Interpretation Comments Meso BF (test code = Meso BF) 6 [facility]2022-07-25 15:00:00 Test Item Value Reference Range Interpretation Comments Comment BF (test Differential confirmed. code = Comment BF) mesothlial cells and mixed inflammation. performed by Dr. Rosendo Chapa [facility]2022-07-25 15:00:00 Test Item Value Reference Range Interpretation Comments Glucose BF (test code = Glucose BF) 154 [facility] [id number] 15:00:00 Test Item Value Reference Range Interpretation Comments Gluc BF Type (test Pleural *NA*(06/13/22 code = Gluc BF Type) 10:00 AM) [facility] [id number] 15:00:00 Test Item Value Reference Range Interpretation Comments LDH BF (test code = LDH BF) 74 [facility] [id number] 15:00:00 Test Item Value Reference Range Interpretation Comments LDH BF Type (test Pleural *NA*(06/13/22 code = LDH BF Type) 10:00 AM) [facility] [id number] 15:00:00 Test Item Value Reference Range Interpretation Comments pH BF Type (test code Pleural (06/13/22 10:00 = pH BF Type) AM) [facility] [id number] 15:00:00 Test Item Value Reference Range Interpretation Comments pH BF (test code = pH BF) 8.00 1 [facility] [id number] 15:00:00 Test Item Value Reference Range Interpretation Comments Protein BF (test code = Protein BF) 1.0 [facility] [id number] 15:00:00 Test Item Value Reference Range Interpretation Comments Prot BF Type (test Pleural *NA*(06/13/22 code = Prot BF Type) 10:00 AM) [facility] [id number] 15:00:00 Test Item Value Reference Range Interpretation Comments Gram Stain Report Few WBC's No Organisms (test code = Gram Seen Stain Report) [facility] Aspirate/Body Fluid/[id number] 15:00:00 Test Item Value Reference Range Interpretation Comments Culture: Aspirate/Body Fluid/Tissue No Growth (test code = Culture: Aspirate/Body Fluid/Tissue) [facility] [id number] 15:00:00 Test Item Value Reference Range Interpretation Comments Albumin BF (test code = Albumin BF) 0.6 [facility] [id number] 15:00:00 Test Item Value Reference Range Interpretation Comments Alb BF Type (test Pleural *NA*(06/13/22 code = Alb BF Type) 10:00 AM) [facility]2022-07-25 15:00:00 Test Item Value Reference Range Interpretation Comments CellCnt BF Type (test Thoracen (06/13/22 10:00 code = CellCnt BF AM) Type) [facility]2022-07-25 15:00:00 Test Item Value Reference Range Interpretation Comments Color BF (test code = Yellow (06/13/22 10:00 Color BF) AM) [facility]2022-07-25 15:00:00 Test Item Value Reference Range Interpretation Comments Clarity BF (test code = Clear (06/13/22 10:00 Clarity BF) AM) [facility]2022-07-25 15:00:00 Test Item Value Reference Range Interpretation Comments Supernat BF (test code = Yellow *ABN*(06/13/22 Supernat BF) 10:00 AM) [facility]2022-07-25 15:00:00 Test Item Value Reference Range Interpretation Comments Nucleated Cells BF (test code = 273 Nucleated Cells BF) [facility]2022-07-25 15:00:00 Test Item Value Reference Range Interpretation Comments RBC BF (test code = RBC BF) 419 [facility]2022-07-25 15:00:00 Test Item Value Reference Range Interpretation Comments Neutrophils BF (test code = Neutrophils 10 BF) [facility]2022-07-25 15:00:00 Test Item Value Reference Range Interpretation Comments Lymph BF (test code = Lymph BF) 36 [facility]2022-07-25 15:00:00 Test Item Value Reference Range Interpretation Comments Macrophage BF (test code = Macrophage 48 BF) [facility]2022-07-25 15:00:00 Test Item Value Reference Range Interpretation Comments Meso BF (test code = Meso BF) 6 [facility]2022-07-25 15:00:00 Test Item Value Reference Range Interpretation Comments Comment BF (test Differential confirmed. code = Comment BF) mesothlial cells and mixed inflammation. performed by Dr. Rosendo Chapa [facility]2022-07-25 15:00:00 Test Item Value Reference Range Interpretation Comments Glucose BF (test code = Glucose BF) 154 [facility]2022-07-25 15:00:00 Test Item Value Reference Range Interpretation Comments Gluc BF Type (test Pleural *NA*(06/13/22 code = Gluc BF Type) 10:00 AM) [facility] [id number] 15:00:00 Test Item Value Reference Range Interpretation Comments LDH BF (test code = LDH BF) 74 [facility] [id number] 15:00:00 Test Item Value Reference Range Interpretation Comments LDH BF Type (test Pleural *NA*(06/13/22 code = LDH BF Type) 10:00 AM) [facility] [id number] 15:00:00 Test Item Value Reference Range Interpretation Comments pH BF Type (test code Pleural (06/13/22 10:00 = pH BF Type) AM) [facility] [id number] 15:00:00 Test Item Value Reference Range Interpretation Comments pH BF (test code = pH BF) 8.00 1 [facility] [id number] 15:00:00 Test Item Value Reference Range Interpretation Comments Protein BF (test code = Protein BF) 1.0 [facility] [id number] 15:00:00 Test Item Value Reference Range Interpretation Comments Prot BF Type (test Pleural *NA*(06/13/22 code = Prot BF Type) 10:00 AM) [facility] Stain [id number] 15:00:00 Test Item Value Reference Range Interpretation Comments Gram Stain Report Few WBC's No Organisms (test code = Gram Seen Stain Report) [facility]/Body Fluid/[id number] 15:00:00 Test Item Value Reference Range Interpretation Comments Culture: Aspirate/Body Fluid/Tissue No Growth (test code = Culture: Aspirate/Body Fluid/Tissue) [facility] [id number] 15:00:00 Test Item Value Reference Range Interpretation Comments Albumin BF (test code = Albumin BF) 0.6 [facility] [id number] 15:00:00 Test Item Value Reference Range Interpretation Comments Alb BF Type (test Pleural *NA*(06/13/22 code = Alb BF Type) 10:00 AM) [facility] [id number] 15:00:00 Test Item Value Reference Range Interpretation Comments CellCnt BF Type (test Thoracen (06/13/22 10:00 code = CellCnt BF AM) Type) [id number] 15:00:00 Test Item Value Reference Range Interpretation Comments Color BF (test code = Yellow (06/13/22 10:00 Color BF) AM) [facility]2022-07-25 15:00:00 Test Item Value Reference Range Interpretation Comments Clarity BF (test code = Clear (06/13/22 10:00 Clarity BF) AM) [facility]2022-07-25 15:00:00 Test Item Value Reference Range Interpretation Comments Supernat BF (test code = Yellow *ABN*(06/13/22 Supernat BF) 10:00 AM) [facility]2022-07-25 15:00:00 Test Item Value Reference Range Interpretation Comments Nucleated Cells BF (test code = 273 Nucleated Cells BF) [facility]2022-07-25 15:00:00 Test Item Value Reference Range Interpretation Comments RBC BF (test code = RBC BF) 419 [facility]2022-07-25 15:00:00 Test Item Value Reference Range Interpretation Comments Neutrophils BF (test code = Neutrophils [address]) [facility]2022-07-25 15:00:00 Test Item Value Reference Range Interpretation Comments Lymph BF (test code = Lymph BF) 36 [facility]2022-07-25 15:00:00 Test Item Value Reference Range Interpretation Comments Macrophage BF (test code = Macrophage [address]) [facility]2022-07-25 15:00:00 Test Item Value Reference Range Interpretation Comments Meso BF (test code = Meso BF) 6 [facility]2022-07-25 15:00:00 Test Item Value Reference Range Interpretation Comments Comment BF (test Differential confirmed. code = Comment BF) mesothlial cells and mixed inflammation. performed by Dr. Rosendo Chapa [facility]2022-07-25 15:00:00 Test Item Value Reference Range Interpretation Comments Glucose BF (test code = Glucose BF) 154 [facility]2022-07-25 15:00:00 Test Item Value Reference Range Interpretation Comments Gluc BF Type (test Pleural *NA*(06/13/22 code = Gluc BF Type) 10:00 AM) [facility]2022-07-25 15:00:00 Test Item Value Reference Range Interpretation Comments LDH BF (test code = LDH BF) 74 [facility]2022-07-25 15:00:00 Test Item Value Reference Range Interpretation Comments LDH BF Type (test Pleural *NA*(06/13/22 code = LDH BF Type) 10:00 AM) [facility] [id number] 15:00:00 Test Item Value Reference Range Interpretation Comments pH BF Type (test code Pleural (06/13/22 10:00 = pH BF Type) AM) [facility] [id number] 15:00:00 Test Item Value Reference Range Interpretation Comments pH BF (test code = pH BF) 8.00 1 [facility] [id number] 15:00:00 Test Item Value Reference Range Interpretation Comments Protein BF (test code = Protein BF) 1.0 [facility] [id number] 15:00:00 Test Item Value Reference Range Interpretation Comments Prot BF Type (test Pleural *NA*(06/13/22 code = Prot BF Type) 10:00 AM) [facility] Stain [id number] 15:00:00 Test Item Value Reference Range Interpretation Comments Gram Stain Report Few WBC's No Organisms (test code = Gram Seen Stain Report) [facility]: Aspirate/Body Fluid/[id number] 15:00:00 Test Item Value Reference Range Interpretation Comments Culture: Aspirate/Body Fluid/Tissue No Growth (test code = Culture: Aspirate/Body Fluid/Tissue) [facility]2022-07-25 15:00:00 Test Item Value Reference Range Interpretation Comments Albumin BF (test code = Albumin BF) 0.6 [facility]2022-07-25 15:00:00 Test Item Value Reference Range Interpretation Comments Alb BF Type (test Pleural *NA*(06/13/22 code = Alb BF Type) 10:00 AM) [facility] [id number] 15:00:00 Test Item Value Reference Range Interpretation Comments CellCnt BF Type (test Thoracen (06/13/22 10:00 code = CellCnt BF AM) Type) [facility]2022-07-25 15:00:00 Test Item Value Reference Range Interpretation Comments Color BF (test code = Yellow (06/13/22 10:00 Color BF) AM) [facility]2022-07-25 15:00:00 Test Item Value Reference Range Interpretation Comments Clarity BF (test code = Clear (06/13/22 10:00 Clarity BF) AM) [facility]2022-07-25 15:00:00 Test Item Value Reference Range Interpretation Comments Supernat BF (test code = Yellow *ABN*(06/13/22 Supernat BF) 10:00 AM) [facility]2022-07-25 15:00:00 Test Item Value Reference Range Interpretation Comments Nucleated Cells BF (test code = 273 Nucleated Cells BF) [facility]2022-07-25 15:00:00 Test Item Value Reference Range Interpretation Comments RBC BF (test code = RBC BF) 419 [facility]2022-07-25 15:00:00 Test Item Value Reference Range Interpretation Comments Neutrophils BF (test code = Neutrophils [address]) [facility]2022-07-25 15:00:00 Test Item Value Reference Range Interpretation Comments Lymph BF (test code = Lymph BF) 36 [facility]2022-07-25 15:00:00 Test Item Value Reference Range Interpretation Comments Macrophage BF (test code = Macrophage [address]) [facility]2022-07-25 15:00:00 Test Item Value Reference Range Interpretation Comments Meso BF (test code = Meso BF) 6 [facility]2022-07-25 15:00:00 Test Item Value Reference Range Interpretation Comments Comment BF (test Differential confirmed. code = Comment BF) mesothlial cells and mixed inflammation. performed by Dr. Rosendo Chapa [facility]2022-07-25 15:00:00 Test Item Value Reference Range Interpretation Comments Glucose BF (test code = Glucose BF) 154 [facility]2022-07-25 15:00:00 Test Item Value Reference Range Interpretation Comments Gluc BF Type (test Pleural *NA*(06/13/22 code = Gluc BF Type) 10:00 AM) [facility]2022-07-25 15:00:00 Test Item Value Reference Range Interpretation Comments LDH BF (test code = LDH BF) 74 [facility]2022-07-25 15:00:00 Test Item Value Reference Range Interpretation Comments LDH BF Type (test Pleural *NA*(06/13/22 code = LDH BF Type) 10:00 AM) [facility]2022-07-25 15:00:00 Test Item Value Reference Range Interpretation Comments pH BF Type (test code Pleural (06/13/22 10:00 = pH BF Type) AM) [facility] [id number] 15:00:00 Test Item Value Reference Range Interpretation Comments pH BF (test code = pH BF) 8.00 1 [facility] [id number] 15:00:00 Test Item Value Reference Range Interpretation Comments Protein BF (test code = Protein BF) 1.0 [facility] [id number] 15:00:00 Test Item Value Reference Range Interpretation Comments Prot BF Type (test Pleural *NA*(06/13/22 code = Prot BF Type) 10:00 AM) [facility] [id number] 15:00:00 Test Item Value Reference Range Interpretation Comments Gram Stain Report Few WBC's No Organisms (test code = Gram Seen Stain Report) [facility]: Aspirate/Body Fluid/[id number] 15:00:00 Test Item Value Reference Range Interpretation Comments Culture: Aspirate/Body Fluid/Tissue No Growth (test code = Culture: Aspirate/Body Fluid/Tissue) [facility]2022-07-25 15:00:00 Test Item Value Reference Range Interpretation Comments Albumin BF (test code = Albumin BF) 0.6 [facility]2022-07-25 15:00:00 Test Item Value Reference Range Interpretation Comments Alb BF Type (test Pleural *NA*(06/13/22 code = Alb BF Type) 10:00 AM) [facility]2022-07-25 15:00:00 Test Item Value Reference Range Interpretation Comments CellCnt BF Type (test Thoracen (06/13/22 10:00 code = CellCnt BF AM) Type) [facility]2022-07-25 15:00:00 Test Item Value Reference Range Interpretation Comments Color BF (test code = Yellow (06/13/22 10:00 Color BF) AM) [facility]2022-07-25 15:00:00 Test Item Value Reference Range Interpretation Comments Clarity BF (test code = Clear (06/13/22 10:00 Clarity BF) AM) [facility]2022-07-25 15:00:00 Test Item Value Reference Range Interpretation Comments Supernat BF (test code = Yellow *ABN*(06/13/22 Supernat BF) 10:00 AM) [facility]2022-07-25 15:00:00 Test Item Value Reference Range Interpretation Comments Nucleated Cells BF (test code = 273 Nucleated Cells BF) [facility]2022-07-25 15:00:00 Test Item Value Reference Range Interpretation Comments RBC BF (test code = RBC BF) 419 [facility]2022-07-25 15:00:00 Test Item Value Reference Range Interpretation Comments Neutrophils BF (test code = Neutrophils [address]) [facility]2022-07-25 15:00:00 Test Item Value Reference Range Interpretation Comments Lymph BF (test code = Lymph BF) 36 [facility]2022-07-25 15:00:00 Test Item Value Reference Range Interpretation Comments Macrophage BF (test code = Macrophage [address]) [facility]2022-07-25 15:00:00 Test Item Value Reference Range Interpretation Comments Meso BF (test code = Meso BF) 6 [facility]2022-07-25 15:00:00 Test Item Value Reference Range Interpretation Comments Comment BF (test Differential confirmed. code = Comment BF) mesothlial cells and mixed inflammation. performed by Dr. Rosendo Chapa [facility]2022-07-25 15:00:00 Test Item Value Reference Range Interpretation Comments Glucose BF (test code = Glucose BF) 154 [facility]2022-07-25 15:00:00 Test Item Value Reference Range Interpretation Comments Gluc BF Type (test Pleural *NA*(06/13/22 code = Gluc BF Type) 10:00 AM) [facility]2022-07-25 15:00:00 Test Item Value Reference Range Interpretation Comments LDH BF (test code = LDH BF) 74 [facility]2022-07-25 15:00:00 Test Item Value Reference Range Interpretation Comments LDH BF Type (test Pleural *NA*(06/13/22 code = LDH BF Type) 10:00 AM) [facility]2022-07-25 15:00:00 Test Item Value Reference Range Interpretation Comments pH BF Type (test code Pleural (06/13/22 10:00 = pH BF Type) AM) [facility]2022-07-25 15:00:00 Test Item Value Reference Range Interpretation Comments pH BF (test code = pH BF) 8.00 1 [facility] [id number] 15:00:00 Test Item Value Reference Range Interpretation Comments Protein BF (test code = Protein BF) 1.0 [facility] [id number] 15:00:00 Test Item Value Reference Range Interpretation Comments Prot BF Type (test Pleural *NA*(06/13/22 code = Prot BF Type) 10:00 AM) [facility] [id number] 15:00:00 Test Item Value Reference Range Interpretation Comments Gram Stain Report Few WBC's No Organisms (test code = Gram Seen Stain Report) [facility] Aspirate/Body Fluid/[id number] 15:00:00 Test Item Value Reference Range Interpretation Comments Culture: Aspirate/Body Fluid/Tissue No Growth (test code = Culture: Aspirate/Body Fluid/Tissue) [facility]2022-07-25 15:00:00 Test Item Value Reference Range Interpretation Comments Albumin BF (test code = Albumin BF) 0.6 [facility]2022-07-25 15:00:00 Test Item Value Reference Range Interpretation Comments Alb BF Type (test Pleural *NA*(06/13/22 code = Alb BF Type) 10:00 AM) [facility]2022-07-25 15:00:00 Test Item Value Reference Range Interpretation Comments CellCnt BF Type (test Thoracen (06/13/22 10:00 code = CellCnt BF AM) Type) [facility]2022-07-25 15:00:00 Test Item Value Reference Range Interpretation Comments Color BF (test code = Yellow (06/13/22 10:00 Color BF) AM) [facility]2022-07-25 15:00:00 Test Item Value Reference Range Interpretation Comments Clarity BF (test code = Clear (06/13/22 10:00 Clarity BF) AM) [facility]2022-07-25 15:00:00 Test Item Value Reference Range Interpretation Comments Supernat BF (test code = Yellow *ABN*(06/13/22 Supernat BF) 10:00 AM) [facility]2022-07-25 15:00:00 Test Item Value Reference Range Interpretation Comments Nucleated Cells BF (test code = 273 Nucleated Cells BF) [facility]2022-07-25 15:00:00 Test Item Value Reference Range Interpretation Comments RBC BF (test code = RBC BF) 419 [facility]2022-07-25 15:00:00 Test Item Value Reference Range Interpretation Comments Neutrophils BF (test code = Neutrophils 10 [address]) [facility]2022-07-25 15:00:00 Test Item Value Reference Range Interpretation Comments Lymph BF (test code = Lymph BF) 36 [facility]2022-07-25 15:00:00 Test Item Value Reference Range Interpretation Comments Macrophage BF (test code = Macrophage [address]) [facility]2022-07-25 15:00:00 Test Item Value Reference Range Interpretation Comments Meso BF (test code = Meso BF) 6 [facility]2022-07-25 15:00:00 Test Item Value Reference Range Interpretation Comments Comment BF (test Differential confirmed. code = Comment BF) mesothlial cells and mixed inflammation. performed by Dr. Rosendo Chapa [facility]2022-07-25 15:00:00 Test Item Value Reference Range Interpretation Comments Glucose BF (test code = Glucose BF) 154 [facility]2022-07-25 15:00:00 Test Item Value Reference Range Interpretation Comments Gluc BF Type (test Pleural *NA*(06/13/22 code = Gluc BF Type) 10:00 AM) [facility]2022-07-25 15:00:00 Test Item Value Reference Range Interpretation Comments LDH BF (test code = LDH BF) 74 [facility]2022-07-25 15:00:00 Test Item Value Reference Range Interpretation Comments LDH BF Type (test Pleural *NA*(06/13/22 code = LDH BF Type) 10:00 AM) [facility]2022-07-25 15:00:00 Test Item Value Reference Range Interpretation Comments pH BF Type (test code Pleural (06/13/22 10:00 = pH BF Type) AM) [facility]2022-07-25 15:00:00 Test Item Value Reference Range Interpretation Comments pH BF (test code = pH BF) 8.[address] [facility]2022-07-25 15:00:00 Test Item Value Reference Range Interpretation Comments Protein BF (test code = Protein BF) 1.0 [facility] [id number] 15:00:00 Test Item Value Reference Range Interpretation Comments Prot BF Type (test Pleural *NA*(06/13/22 code = Prot BF Type) 10:00 AM) [facility] [id number] 15:00:00 Test Item Value Reference Range Interpretation Comments Gram Stain Report Few WBC's No Organisms (test code = Gram Seen Stain Report) [facility] Aspirate/Body Fluid/[id number] 15:00:00 Test Item Value Reference Range Interpretation Comments Culture: Aspirate/Body Fluid/Tissue No Growth (test code = Culture: Aspirate/Body Fluid/Tissue) [facility]2022-07-25 15:00:00 Test Item Value Reference Range Interpretation Comments Albumin BF (test code = Albumin BF) 0.6 [facility]2022-07-25 15:00:00 Test Item Value Reference Range Interpretation Comments Alb BF Type (test Pleural *NA*(06/13/22 code = Alb BF Type) 10:00 AM) [facility]2022-07-25 15:00:00 Test Item Value Reference Range Interpretation Comments CellCnt BF Type (test Thoracen (06/13/22 10:00 code = CellCnt BF AM) Type) [facility]2022-07-25 15:00:00 Test Item Value Reference Range Interpretation Comments Color BF (test code = Yellow (06/13/22 10:00 Color BF) AM) [facility]2022-07-25 15:00:00 Test Item Value Reference Range Interpretation Comments Clarity BF (test code = Clear (06/13/22 10:00 Clarity BF) AM) [facility]2022-07-25 15:00:00 Test Item Value Reference Range Interpretation Comments Supernat BF (test code = Yellow *ABN*(06/13/22 Supernat BF) 10:00 AM) [facility]2022-07-25 15:00:00 Test Item Value Reference Range Interpretation Comments Nucleated Cells BF (test code = 273 Nucleated Cells BF) [facility]2022-07-25 15:00:00 Test Item Value Reference Range Interpretation Comments RBC BF (test code = RBC BF) 419 [facility]2022-07-25 15:00:00 Test Item Value Reference Range Interpretation Comments Neutrophils BF (test code = Neutrophils 10 BF) [facility]2022-07-25 15:00:00 Test Item Value Reference Range Interpretation Comments Lymph BF (test code = Lymph BF) 36 [facility]2022-07-25 15:00:00 Test Item Value Reference Range Interpretation Comments Macrophage BF (test code = Macrophage 48 BF) [facility]2022-07-25 15:00:00 Test Item Value Reference Range Interpretation Comments Meso BF (test code = Meso BF) 6 [facility]2022-07-25 15:00:00 Test Item Value Reference Range Interpretation Comments Comment BF (test Differential confirmed. code = Comment BF) mesothlial cells and mixed inflammation. performed by Dr. Rosendo Chapa [facility]2022-07-25 15:00:00 Test Item Value Reference Range Interpretation Comments Glucose BF (test code = Glucose BF) 154 [facility]2022-07-25 15:00:00 Test Item Value Reference Range Interpretation Comments Gluc BF Type (test Pleural *NA*(06/13/22 code = Gluc BF Type) 10:00 AM) [facility]2022-07-25 15:00:00 Test Item Value Reference Range Interpretation Comments LDH BF (test code = LDH BF) 74 [facility]2022-07-25 15:00:00 Test Item Value Reference Range Interpretation Comments LDH BF Type (test Pleural *NA*(06/13/22 code = LDH BF Type) 10:00 AM) [facility]2022-07-25 15:00:00 Test Item Value Reference Range Interpretation Comments pH BF Type (test code Pleural (06/13/22 10:00 = pH BF Type) AM) [facility]2022-07-25 15:00:00 Test Item Value Reference Range Interpretation Comments pH BF (test code = pH BF) 8.[address] [facility]2022-07-25 15:00:00 Test Item Value Reference Range Interpretation Comments Protein BF (test code = Protein BF) 1.0 [facility]2022-07-25 15:00:00 Test Item Value Reference Range Interpretation Comments Prot BF Type (test Pleural *NA*(06/13/22 code = Prot BF Type) 10:00 AM) [facility] [id number] 15:00:00 Test Item Value Reference Range Interpretation Comments Gram Stain Report Few WBC's No Organisms (test code = Gram Seen Stain Report) [facility] Aspirate/Body Fluid/[id number] 15:00:00 Test Item Value Reference Range Interpretation Comments Culture: Aspirate/Body Fluid/Tissue No Growth (test code = Culture: Aspirate/Body Fluid/Tissue) [facility]2022-07-25 15:00:00 Test Item Value Reference Range Interpretation Comments Albumin BF (test code = Albumin BF) 0.6 [facility]2022-07-25 15:00:00 Test Item Value Reference Range Interpretation Comments Alb BF Type (test Pleural *NA*(06/13/22 code = Alb BF Type) 10:00 AM) [facility]2022-07-25 15:00:00 Test Item Value Reference Range Interpretation Comments CellCnt BF Type (test Thoracen (06/13/22 10:00 code = CellCnt BF AM) Type) [facility]2022-07-25 15:00:00 Test Item Value Reference Range Interpretation Comments Color BF (test code = Yellow (06/13/22 10:00 Color BF) AM) [facility]2022-07-25 15:00:00 Test Item Value Reference Range Interpretation Comments Clarity BF (test code = Clear (06/13/22 10:00 Clarity BF) AM) [facility]2022-07-25 15:00:00 Test Item Value Reference Range Interpretation Comments Supernat BF (test code = Yellow *ABN*(06/13/22 Supernat BF) 10:00 AM) [facility]2022-07-25 15:00:00 Test Item Value Reference Range Interpretation Comments Nucleated Cells BF (test code = 273 Nucleated Cells BF) [facility]2022-07-25 15:00:00 Test Item Value Reference Range Interpretation Comments RBC BF (test code = RBC BF) 419 [facility]2022-07-25 15:00:00 Test Item Value Reference Range Interpretation Comments Neutrophils BF (test code = Neutrophils 10 BF) [facility]2022-07-25 15:00:00 Test Item Value Reference Range Interpretation Comments Lymph BF (test code = Lymph BF) 36 [facility] [id number] 15:00:00 Test Item Value Reference Range Interpretation Comments Macrophage BF (test code = Macrophage 48 BF) [facility] [id number] 15:00:00 Test Item Value Reference Range Interpretation Comments Meso BF (test code = Meso BF) 6 [facility]2022-07-25 15:00:00 Test Item Value Reference Range Interpretation Comments Comment BF (test Differential confirmed. code = Comment BF) mesothlial cells and mixed inflammation. performed by Dr. Rosendo Chapa [facility] [id number] 15:00:00 Test Item Value Reference Range Interpretation Comments Glucose BF (test code = Glucose BF) 154 [facility]2022-07-25 15:00:00 Test Item Value Reference Range Interpretation Comments Gluc BF Type (test Pleural *NA*(06/13/22 code = Gluc BF Type) 10:00 AM) [facility]2022-07-25 15:00:00 Test Item Value Reference Range Interpretation Comments LDH BF (test code = LDH BF) 74 [facility] [id number] 15:00:00 Test Item Value Reference Range Interpretation Comments LDH BF Type (test Pleural *NA*(06/13/22 code = LDH BF Type) 10:00 AM) [facility] [id number] 15:00:00 Test Item Value Reference Range Interpretation Comments pH BF Type (test code Pleural (06/13/22 10:00 = pH BF Type) AM) [facility]2022-07-25 15:00:00 Test Item Value Reference Range Interpretation Comments pH BF (test code = pH BF) 8.00 1 [facility] [facility] [id number] 15:00:00 Test Item Value Reference Range Interpretation Comments Protein BF (test code = Protein BF) 1.0 [facility] [id number] 15:00:00 Test Item Value Reference Range Interpretation Comments Prot BF Type (test Pleural *NA*(06/13/22 code = Prot BF Type) 10:00 AM) [facility] [id number] 15:00:00 Test Item Value Reference Range Interpretation Comments Gram Stain Report Few WBC's No Organisms (test code = Gram Seen Stain Report) [facility] Aspirate/Body Fluid/[id number] 15:00:00 Test Item Value Reference Range Interpretation Comments Culture: Aspirate/Body Fluid/Tissue No Growth (test code = Culture: Aspirate/Body Fluid/Tissue) [facility]2022-07-25 15:00:00 Test Item Value Reference Range Interpretation Comments Albumin BF (test code = Albumin BF) 0.6 [facility]2022-07-25 15:00:00 Test Item Value Reference Range Interpretation Comments Alb BF Type (test Pleural *NA*(06/13/22 code = Alb BF Type) 10:00 AM) [facility]2022-07-25 15:00:00 Test Item Value Reference Range Interpretation Comments CellCnt BF Type (test Thoracen (06/13/22 10:00 code = CellCnt BF AM) Type) [facility]2022-07-25 15:00:00 Test Item Value Reference Range Interpretation Comments Color BF (test code = Yellow (06/13/22 10:00 Color BF) AM) [facility]2022-07-25 15:00:00 Test Item Value Reference Range Interpretation Comments Clarity BF (test code = Clear (06/13/22 10:00 Clarity BF) AM) [facility]2022-07-25 15:00:00 Test Item Value Reference Range Interpretation Comments Supernat BF (test code = Yellow *ABN*(06/13/22 Supernat BF) 10:00 AM) [facility]2022-07-25 15:00:00 Test Item Value Reference Range Interpretation Comments Nucleated Cells BF (test code = 273 Nucleated Cells BF) [facility]2022-07-25 15:00:00 Test Item Value Reference Range Interpretation Comments RBC BF (test code = RBC BF) 419 [facility]2022-07-25 15:00:00 Test Item Value Reference Range Interpretation Comments Neutrophils BF (test code = Neutrophils 10 [address]) [facility]2022-07-25 15:00:00 Test Item Value Reference Range Interpretation Comments Lymph BF (test code = Lymph BF) 36 [facility]2022-07-25 15:00:00 Test Item Value Reference Range Interpretation Comments Macrophage BF (test code = Macrophage 48 [address]) [facility]2022-07-25 15:00:00 Test Item Value Reference Range Interpretation Comments Meso BF (test code = Meso BF) 6 [facility] [id number] 15:00:00 Test Item Value Reference Range Interpretation Comments Comment BF (test Differential confirmed. code = Comment BF) mesothlial cells and mixed inflammation. performed by Dr. Rosendo Chapa [facility] [id number] 15:00:00 Test Item Value Reference Range Interpretation Comments Glucose BF (test code = Glucose BF) 154 [facility] [id number] 15:00:00 Test Item Value Reference Range Interpretation Comments Gluc BF Type (test Pleural *NA*(06/13/22 code = Gluc BF Type) 10:00 AM) [facility] [id number] 15:00:00 Test Item Value Reference Range Interpretation Comments LDH BF (test code = LDH BF) 74 [facility] [id number] 15:00:00 Test Item Value Reference Range Interpretation Comments LDH BF Type (test Pleural *NA*(06/13/22 code = LDH BF Type) 10:00 AM) [facility] [id number] 15:00:00 Test Item Value Reference Range Interpretation Comments pH BF Type (test code Pleural (06/13/22 10:00 = pH BF Type) AM) [facility] [id number] 15:00:00 Test Item Value Reference Range Interpretation Comments pH BF (test code = pH BF) 8.00 1 [facility] [id number] 15:00:00 Test Item Value Reference Range Interpretation Comments Protein BF (test code = Protein BF) 1.0 [facility] [id number] 15:00:00 Test Item Value Reference Range Interpretation Comments Prot BF Type (test Pleural *NA*(06/13/22 code = Prot BF Type) 10:00 AM) [facility] [id number] 15:00:00 Test Item Value Reference Range Interpretation Comments Gram Stain Report Few WBC's No Organisms (test code = Gram Seen Stain Report) [facility]Culture: Aspirate/Body Fluid/[id number] 15:00:00 Test Item Value Reference Range Interpretation Comments Culture: Aspirate/Body Fluid/Tissue No Growth (test code = Culture: Aspirate/Body Fluid/Tissue) [facility]2022-07-25 15:00:00 Test Item Value Reference Range Interpretation Comments Albumin BF (test code = Albumin BF) 0.6 [facility]2022-07-25 15:00:00 Test Item Value Reference Range Interpretation Comments Alb BF Type (test Pleural *NA*(06/13/22 code = Alb BF Type) 10:00 AM) [facility]2022-07-25 15:00:00 Test Item Value Reference Range Interpretation Comments CellCnt BF Type (test Thoracen (06/13/22 10:00 code = CellCnt BF AM) Type) [facility]2022-07-25 15:00:00 Test Item Value Reference Range Interpretation Comments Color BF (test code = Yellow (06/13/22 10:00 Color BF) AM) [facility]2022-07-25 15:00:00 Test Item Value Reference Range Interpretation Comments Clarity BF (test code = Clear (06/13/22 10:00 Clarity BF) AM) [facility]2022-07-25 15:00:00 Test Item Value Reference Range Interpretation Comments Supernat BF (test code = Yellow *ABN*(06/13/22 Supernat BF) 10:00 AM) [facility]2022-07-25 15:00:00 Test Item Value Reference Range Interpretation Comments Nucleated Cells BF (test code = 273 Nucleated Cells BF) [facility]2022-07-25 15:00:00 Test Item Value Reference Range Interpretation Comments RBC BF (test code = RBC BF) 419 [facility]2022-07-25 15:00:00 Test Item Value Reference Range Interpretation Comments Neutrophils BF (test code = Neutrophils 10 [address]) [facility]2022-07-25 15:00:00 Test Item Value Reference Range Interpretation Comments Lymph BF (test code = Lymph BF) 36 [facility]2022-07-25 15:00:00 Test Item Value Reference Range Interpretation Comments Macrophage BF (test code = Macrophage 48 [address]) [facility]2022-07-25 15:00:00 Test Item Value Reference Range Interpretation Comments Meso BF (test code = Meso BF) 6 [facility]2022-07-25 15:00:00 Test Item Value Reference Range Interpretation Comments Comment BF (test Differential confirmed. code = Comment BF) mesothlial cells and mixed inflammation. performed by Dr. Rosendo Chapa [facility] [id number] 15:00:00 Test Item Value Reference Range Interpretation Comments Glucose BF (test code = Glucose BF) 154 [facility] [id number] 15:00:00 Test Item Value Reference Range Interpretation Comments Gluc BF Type (test Pleural *NA*(06/13/22 code = Gluc BF Type) 10:00 AM) [facility] [id number] 15:00:00 Test Item Value Reference Range Interpretation Comments LDH BF (test code = LDH BF) 74 [facility] [id number] 15:00:00 Test Item Value Reference Range Interpretation Comments LDH BF Type (test Pleural *NA*(06/13/22 code = LDH BF Type) 10:00 AM) [facility] [id number] 15:00:00 Test Item Value Reference Range Interpretation Comments pH BF Type (test code Pleural (06/13/22 10:00 = pH BF Type) AM) [facility]2022-07-25 15:00:00 Test Item Value Reference Range Interpretation Comments pH BF (test code = pH BF) 8.00 1 [facility] [id number] 15:00:00 Test Item Value Reference Range Interpretation Comments Protein BF (test code = Protein BF) 1.0 [facility] [id number] 15:00:00 Test Item Value Reference Range Interpretation Comments Prot BF Type (test Pleural *NA*(06/13/22 code = Prot BF Type) 10:00 AM) [facility] [id number] 15:00:00 Test Item Value Reference Range Interpretation Comments Gram Stain Report Few WBC's No Organisms (test code = Gram Seen Stain Report) [facility] Aspirate/Body Fluid/[id number] 15:00:00 Test Item Value Reference Range Interpretation Comments Culture: Aspirate/Body Fluid/Tissue No Growth (test code = Culture: Aspirate/Body Fluid/Tissue) [facility] [id number] 15:00:00 Test Item Value Reference Range Interpretation Comments Albumin BF (test code = Albumin BF) 0.6 [facility] [id number] 15:00:00 Test Item Value Reference Range Interpretation Comments Alb BF Type (test Pleural *NA*(06/13/22 code = Alb BF Type) 10:00 AM) [facility]2022-07-25 15:00:00 Test Item Value Reference Range Interpretation Comments CellCnt BF Type (test Thoracen (06/13/22 10:00 code = CellCnt BF AM) Type) [facility]2022-07-25 15:00:00 Test Item Value Reference Range Interpretation Comments Color BF (test code = Yellow (06/13/22 10:00 Color BF) AM) [facility]2022-07-25 15:00:00 Test Item Value Reference Range Interpretation Comments Clarity BF (test code = Clear (06/13/22 10:00 Clarity BF) AM) [facility]2022-07-25 15:00:00 Test Item Value Reference Range Interpretation Comments Supernat BF (test code = Yellow *ABN*(06/13/22 Supernat BF) 10:00 AM) [facility]2022-07-25 15:00:00 Test Item Value Reference Range Interpretation Comments Nucleated Cells BF (test code = 273 Nucleated Cells BF) [facility]2022-07-25 15:00:00 Test Item Value Reference Range Interpretation Comments RBC BF (test code = RBC BF) 419 [facility]2022-07-25 15:00:00 Test Item Value Reference Range Interpretation Comments Neutrophils BF (test code = Neutrophils 10 BF) [facility]2022-07-25 15:00:00 Test Item Value Reference Range Interpretation Comments Lymph BF (test code = Lymph BF) 36 [facility]2022-07-25 15:00:00 Test Item Value Reference Range Interpretation Comments Macrophage BF (test code = Macrophage 48 BF) [facility]2022-07-25 15:00:00 Test Item Value Reference Range Interpretation Comments Meso BF (test code = Meso BF) 6 [facility]2022-07-25 15:00:00 Test Item Value Reference Range Interpretation Comments Comment BF (test Differential confirmed. code = Comment BF) mesothlial cells and mixed inflammation. performed by Dr. Rosendo Chapa [facility]2022-07-25 15:00:00 Test Item Value Reference Range Interpretation Comments Glucose BF (test code = Glucose BF) 154 [facility] [id number] 15:00:00 Test Item Value Reference Range Interpretation Comments Gluc BF Type (test Pleural *NA*(06/13/22 code = Gluc BF Type) 10:00 AM) [facility] [id number] 15:00:00 Test Item Value Reference Range Interpretation Comments LDH BF (test code = LDH BF) 74 [facility] [id number] 15:00:00 Test Item Value Reference Range Interpretation Comments LDH BF Type (test Pleural *NA*(06/13/22 code = LDH BF Type) 10:00 AM) [facility] [id number] 15:00:00 Test Item Value Reference Range Interpretation Comments pH BF Type (test code Pleural (06/13/22 10:00 = pH BF Type) AM) [facility] [id number] 15:00:00 Test Item Value Reference Range Interpretation Comments pH BF (test code = pH BF) 8.00 1 [facility] [id number] 15:00:00 Test Item Value Reference Range Interpretation Comments Protein BF (test code = Protein BF) 1.0 [facility] [id number] 15:00:00 Test Item Value Reference Range Interpretation Comments Prot BF Type (test Pleural *NA*(06/13/22 code = Prot BF Type) 10:00 AM) [facility] [id number] 15:00:00 Test Item Value Reference Range Interpretation Comments Gram Stain Report Few WBC's No Organisms (test code = Gram Seen Stain Report) [facility] Aspirate/Body Fluid/[id number] 15:00:00 Test Item Value Reference Range Interpretation Comments Culture: Aspirate/Body Fluid/Tissue No Growth (test code = Culture: Aspirate/Body Fluid/Tissue) [facility] [id number] 15:00:00 Test Item Value Reference Range Interpretation Comments Albumin BF (test code = Albumin BF) 0.6 [facility] [id number] 15:00:00 Test Item Value Reference Range Interpretation Comments Alb BF Type (test Pleural *NA*(06/13/22 code = Alb BF Type) 10:00 AM) [facility] [id number] 15:00:00 Test Item Value Reference Range Interpretation Comments CellCnt BF Type (test Thoracen (06/13/22 10:00 code = CellCnt BF AM) Type) [facility]2022-07-25 15:00:00 Test Item Value Reference Range Interpretation Comments Color BF (test code = Yellow (06/13/22 10:00 Color BF) AM) [facility]2022-07-25 15:00:00 Test Item Value Reference Range Interpretation Comments Clarity BF (test code = Clear (06/13/22 10:00 Clarity BF) AM) [facility]2022-07-25 15:00:00 Test Item Value Reference Range Interpretation Comments Supernat BF (test code = Yellow *ABN*(06/13/22 Supernat BF) 10:00 AM) [facility]2022-07-25 15:00:00 Test Item Value Reference Range Interpretation Comments Nucleated Cells BF (test code = 273 Nucleated Cells BF) [facility]2022-07-25 15:00:00 Test Item Value Reference Range Interpretation Comments RBC BF (test code = RBC BF) 419 [facility]2022-07-25 15:00:00 Test Item Value Reference Range Interpretation Comments Neutrophils BF (test code = Neutrophils 10 BF) [facility]2022-07-25 15:00:00 Test Item Value Reference Range Interpretation Comments Lymph BF (test code = Lymph BF) 36 [facility]2022-07-25 15:00:00 Test Item Value Reference Range Interpretation Comments Macrophage BF (test code = Macrophage 48 BF) [facility]2022-07-25 15:00:00 Test Item Value Reference Range Interpretation Comments Meso BF (test code = Meso BF) 6 [facility]2022-07-25 15:00:00 Test Item Value Reference Range Interpretation Comments Comment BF (test Differential confirmed. code = Comment BF) mesothlial cells and mixed inflammation. performed by Dr. Rosendo Chapa [facility]2022-07-25 15:00:00 Test Item Value Reference Range Interpretation Comments Glucose BF (test code = Glucose BF) 154 [facility]2022-07-25 15:00:00 Test Item Value Reference Range Interpretation Comments Gluc BF Type (test Pleural *NA*(06/13/22 code = Gluc BF Type) 10:00 AM) [facility] [id number] 15:00:00 Test Item Value Reference Range Interpretation Comments LDH BF (test code = LDH BF) 74 [facility] [id number] 15:00:00 Test Item Value Reference Range Interpretation Comments LDH BF Type (test Pleural *NA*(06/13/22 code = LDH BF Type) 10:00 AM) [facility] [id number] 15:00:00 Test Item Value Reference Range Interpretation Comments pH BF Type (test code Pleural (06/13/22 10:00 = pH BF Type) AM) [facility] [id number] 15:00:00 Test Item Value Reference Range Interpretation Comments pH BF (test code = pH BF) 8.00 1 [facility] [id number] 15:00:00 Test Item Value Reference Range Interpretation Comments Protein BF (test code = Protein BF) 1.0 [facility] [id number] 15:00:00 Test Item Value Reference Range Interpretation Comments Prot BF Type (test Pleural *NA*(06/13/22 code = Prot BF Type) 10:00 AM) [facility] [id number] 15:00:00 Test Item Value Reference Range Interpretation Comments Gram Stain Report Few WBC's No Organisms (test code = Gram Seen Stain Report) [facility] Aspirate/Body Fluid/[id number] 15:00:00 Test Item Value Reference Range Interpretation Comments Culture: Aspirate/Body Fluid/Tissue No Growth (test code = Culture: Aspirate/Body Fluid/Tissue) [facility] [id number] 15:00:00 Test Item Value Reference Range Interpretation Comments Albumin BF (test code = Albumin BF) 0.6 [facility] [id number] 15:00:00 Test Item Value Reference Range Interpretation Comments Alb BF Type (test Pleural *NA*(06/13/22 code = Alb BF Type) 10:00 AM) [facility] [id number] 15:00:00 Test Item Value Reference Range Interpretation Comments CellCnt BF Type (test Thoracen (06/13/22 10:00 code = CellCnt BF AM) Type) [facility] [id number] 15:00:00 Test Item Value Reference Range Interpretation Comments Color BF (test code = Yellow (06/13/22 10:00 Color BF) AM) [facility]2022-07-25 15:00:00 Test Item Value Reference Range Interpretation Comments Clarity BF (test code = Clear (06/13/22 10:00 Clarity BF) AM) [facility]2022-07-25 15:00:00 Test Item Value Reference Range Interpretation Comments Supernat BF (test code = Yellow *ABN*(06/13/22 Supernat BF) 10:00 AM) [facility]2022-07-25 15:00:00 Test Item Value Reference Range Interpretation Comments Nucleated Cells BF (test code = 273 Nucleated Cells BF) [facility]2022-07-25 15:00:00 Test Item Value Reference Range Interpretation Comments RBC BF (test code = RBC BF) 419 [facility]2022-07-25 15:00:00 Test Item Value Reference Range Interpretation Comments Neutrophils BF (test code = Neutrophils 10 BF) [facility]2022-07-25 15:00:00 Test Item Value Reference Range Interpretation Comments Lymph BF (test code = Lymph BF) 36 [facility]2022-07-25 15:00:00 Test Item Value Reference Range Interpretation Comments Macrophage BF (test code = Macrophage 48 BF) [facility]2022-07-25 15:00:00 Test Item Value Reference Range Interpretation Comments Meso BF (test code = Meso BF) 6 [facility]2022-07-25 15:00:00 Test Item Value Reference Range Interpretation Comments Comment BF (test Differential confirmed. code = Comment BF) mesothlial cells and mixed inflammation. performed by Dr. Rosendo Chapa [facility]2022-07-25 15:00:00 Test Item Value Reference Range Interpretation Comments Glucose BF (test code = Glucose BF) 154 [facility]2022-07-25 15:00:00 Test Item Value Reference Range Interpretation Comments Gluc BF Type (test Pleural *NA*(06/13/22 code = Gluc BF Type) 10:00 AM) [facility]2022-07-25 15:00:00 Test Item Value Reference Range Interpretation Comments LDH BF (test code = LDH BF) 74 [facility]2022-07-25 15:00:00 Test Item Value Reference Range Interpretation Comments LDH BF Type (test Pleural *NA*(06/13/22 code = LDH BF Type) 10:00 AM) [facility] [id number] 15:00:00 Test Item Value Reference Range Interpretation Comments pH BF Type (test code Pleural (06/13/22 10:00 = pH BF Type) AM) [facility] [id number] 15:00:00 Test Item Value Reference Range Interpretation Comments pH BF (test code = pH BF) 8.00 1 [facility] [id number] 15:00:00 Test Item Value Reference Range Interpretation Comments Protein BF (test code = Protein BF) 1.0 [facility] [id number] 15:00:00 Test Item Value Reference Range Interpretation Comments Prot BF Type (test Pleural *NA*(06/13/22 code = Prot BF Type) 10:00 AM) [facility] [id number] 15:00:00 Test Item Value Reference Range Interpretation Comments Gram Stain Report Few WBC's No Organisms (test code = Gram Seen Stain Report) [facility] Aspirate/Body Fluid/[id number] 15:00:00 Test Item Value Reference Range Interpretation Comments Culture: Aspirate/Body Fluid/Tissue No Growth (test code = Culture: Aspirate/Body Fluid/Tissue) [facility]2022-07-25 15:00:00 Test Item Value Reference Range Interpretation Comments Albumin BF (test code = Albumin BF) 0.6 [facility]2022-07-25 15:00:00 Test Item Value Reference Range Interpretation Comments Alb BF Type (test Pleural *NA*(06/13/22 code = Alb BF Type) 10:00 AM) [facility] [id number] 15:00:00 Test Item Value Reference Range Interpretation Comments CellCnt BF Type (test Thoracen (06/13/22 10:00 code = CellCnt BF AM) Type) [facility]2022-07-25 15:00:00 Test Item Value Reference Range Interpretation Comments Color BF (test code = Yellow (06/13/22 10:00 Color BF) AM) [facility]2022-07-25 15:00:00 Test Item Value Reference Range Interpretation Comments Clarity BF (test code = Clear (06/13/22 10:00 Clarity BF) AM) [facility]2022-07-25 15:00:00 Test Item Value Reference Range Interpretation Comments Supernat BF (test code = Yellow *ABN*(06/13/22 Supernat BF) 10:00 AM) [facility]2022-07-25 15:00:00 Test Item Value Reference Range Interpretation Comments Nucleated Cells BF (test code = 273 Nucleated Cells BF) [facility]2022-07-25 15:00:00 Test Item Value Reference Range Interpretation Comments RBC BF (test code = RBC BF) 419 [facility]2022-07-25 15:00:00 Test Item Value Reference Range Interpretation Comments Neutrophils BF (test code = Neutrophils 10 BF) [facility]2022-07-25 15:00:00 Test Item Value Reference Range Interpretation Comments Lymph BF (test code = Lymph BF) 36 [facility]2022-07-25 15:00:00 Test Item Value Reference Range Interpretation Comments Macrophage BF (test code = Macrophage 48 BF) [facility]2022-07-25 15:00:00 Test Item Value Reference Range Interpretation Comments Meso BF (test code = Meso BF) 6 [facility]2022-07-25 15:00:00 Test Item Value Reference Range Interpretation Comments Comment BF (test Differential confirmed. code = Comment BF) mesothlial cells and mixed inflammation. performed by Dr. Rosendo Chapa [facility]2022-07-25 15:00:00 Test Item Value Reference Range Interpretation Comments Glucose BF (test code = Glucose BF) 154 [facility]2022-07-25 15:00:00 Test Item Value Reference Range Interpretation Comments Gluc BF Type (test Pleural *NA*(06/13/22 code = Gluc BF Type) 10:00 AM) [facility]2022-07-25 15:00:00 Test Item Value Reference Range Interpretation Comments LDH BF (test code = LDH BF) 74 [facility]2022-07-25 15:00:00 Test Item Value Reference Range Interpretation Comments LDH BF Type (test Pleural *NA*(06/13/22 code = LDH BF Type) 10:00 AM) [facility]2022-07-25 15:00:00 Test Item Value Reference Range Interpretation Comments pH BF Type (test code Pleural (06/13/22 10:00 = pH BF Type) AM) [facility] [id number] 15:00:00 Test Item Value Reference Range Interpretation Comments pH BF (test code = pH BF) 8.00 1 [facility] [id number] 15:00:00 Test Item Value Reference Range Interpretation Comments Protein BF (test code = Protein BF) 1.0 [facility] [id number] 15:00:00 Test Item Value Reference Range Interpretation Comments Prot BF Type (test Pleural *NA*(06/13/22 code = Prot BF Type) 10:00 AM) [facility] [id number] 15:00:00 Test Item Value Reference Range Interpretation Comments Gram Stain Report Few WBC's No Organisms (test code = Gram Seen Stain Report) [facility]Culture: Aspirate/Body Fluid/[id number] 15:00:00 Test Item Value Reference Range Interpretation Comments Culture: Aspirate/Body Fluid/Tissue No Growth (test code = Culture: Aspirate/Body Fluid/Tissue) [facility] [id number] 15:00:00 Test Item Value Reference Range Interpretation Comments Albumin BF (test code = Albumin BF) 0.6 [facility]2022-07-25 15:00:00 Test Item Value Reference Range Interpretation Comments Alb BF Type (test Pleural *NA*(06/13/22 code = Alb BF Type) 10:00 AM) [facility]2022-07-25 15:00:00 Test Item Value Reference Range Interpretation Comments CellCnt BF Type (test Thoracen (06/13/22 10:00 code = CellCnt BF AM) Type) [facility]2022-07-25 15:00:00 Test Item Value Reference Range Interpretation Comments Color BF (test code = Yellow (06/13/22 10:00 Color BF) AM) [facility]2022-07-25 15:00:00 Test Item Value Reference Range Interpretation Comments Clarity BF (test code = Clear (06/13/22 10:00 Clarity BF) AM) [facility]2022-07-25 15:00:00 Test Item Value Reference Range Interpretation Comments Supernat BF (test code = Yellow *ABN*(06/13/22 Supernat BF) 10:00 AM) [facility]2022-07-25 15:00:00 Test Item Value Reference Range Interpretation Comments Nucleated Cells BF (test code = 273 Nucleated Cells BF) [facility]2022-07-25 15:00:00 Test Item Value Reference Range Interpretation Comments RBC BF (test code = RBC BF) 419 [facility]2022-07-25 15:00:00 Test Item Value Reference Range Interpretation Comments Neutrophils BF (test code = Neutrophils [address]) [facility]2022-07-25 15:00:00 Test Item Value Reference Range Interpretation Comments Lymph BF (test code = Lymph BF) 36 [facility]2022-07-25 15:00:00 Test Item Value Reference Range Interpretation Comments Macrophage BF (test code = Macrophage [address]) [facility]2022-07-25 15:00:00 Test Item Value Reference Range Interpretation Comments Meso BF (test code = Meso BF) 6 [facility]2022-07-25 15:00:00 Test Item Value Reference Range Interpretation Comments Comment BF (test Differential confirmed. code = Comment BF) mesothlial cells and mixed inflammation. performed by Dr. Rosendo Chapa [facility]2022-07-25 15:00:00 Test Item Value Reference Range Interpretation Comments Glucose BF (test code = Glucose BF) 154 [facility]2022-07-25 15:00:00 Test Item Value Reference Range Interpretation Comments Gluc BF Type (test Pleural *NA*(06/13/22 code = Gluc BF Type) 10:00 AM) [facility]2022-07-25 15:00:00 Test Item Value Reference Range Interpretation Comments LDH BF (test code = LDH BF) 74 [facility]2022-07-25 15:00:00 Test Item Value Reference Range Interpretation Comments LDH BF Type (test Pleural *NA*(06/13/22 code = LDH BF Type) 10:00 AM) [facility]2022-07-25 15:00:00 Test Item Value Reference Range Interpretation Comments pH BF Type (test code Pleural (06/13/22 10:00 = pH BF Type) AM) [facility]2022-07-25 15:00:00 Test Item Value Reference Range Interpretation Comments pH BF (test code = pH BF) 8.00 1 [facility] [id number] 15:00:00 Test Item Value Reference Range Interpretation Comments Protein BF (test code = Protein BF) 1.0 [facility] [id number] 15:00:00 Test Item Value Reference Range Interpretation Comments Prot BF Type (test Pleural *NA*(06/13/22 code = Prot BF Type) 10:00 AM) [facility] [id number] 15:00:00 Test Item Value Reference Range Interpretation Comments Gram Stain Report Few WBC's No Organisms (test code = Gram Seen Stain Report) [facility]Culture: Aspirate/Body Fluid/[id number] 15:00:00 Test Item Value Reference Range Interpretation Comments Culture: Aspirate/Body Fluid/Tissue No Growth (test code = Culture: Aspirate/Body Fluid/Tissue) [facility]2022-07-25 15:00:00 Test Item Value Reference Range Interpretation Comments Albumin BF (test code = Albumin BF) 0.6 [facility] [id number] 15:00:00 Test Item Value Reference Range Interpretation Comments Alb BF Type (test Pleural *NA*(06/13/22 code = Alb BF Type) 10:00 AM) [facility] [id number] 15:00:00 Test Item Value Reference Range Interpretation Comments CellCnt BF Type (test Thoracen (06/13/22 10:00 code = CellCnt BF AM) Type) [facility]2022-07-25 15:00:00 Test Item Value Reference Range Interpretation Comments Color BF (test code = Yellow (06/13/22 10:00 Color BF) AM) [facility]2022-07-25 15:00:00 Test Item Value Reference Range Interpretation Comments Clarity BF (test code = Clear (06/13/22 10:00 Clarity BF) AM) [facility] [id number] 15:00:00 Test Item Value Reference Range Interpretation Comments Supernat BF (test code = Yellow *ABN*(06/13/22 Supernat BF) 10:00 AM) [facility] [id number] 15:00:00 Test Item Value Reference Range Interpretation Comments Nucleated Cells BF (test code = 273 Nucleated Cells BF) [facility]2022-07-25 15:00:00 Test Item Value Reference Range Interpretation Comments RBC BF (test code = RBC BF) 419 [facility]2022-07-25 15:00:00 Test Item Value Reference Range Interpretation Comments Neutrophils BF (test code = Neutrophils [address]) [facility]2022-07-25 15:00:00 Test Item Value Reference Range Interpretation Comments Lymph BF (test code = Lymph BF) 36 [facility]2022-07-25 15:00:00 Test Item Value Reference Range Interpretation Comments Macrophage BF (test code = Macrophage [address]) [facility]2022-07-25 15:00:00 Test Item Value Reference Range Interpretation Comments Meso BF (test code = Meso BF) 6 [facility]2022-07-25 15:00:00 Test Item Value Reference Range Interpretation Comments Comment BF (test Differential confirmed. code = Comment BF) mesothlial cells and mixed inflammation. performed by Dr. Rosendo Chapa [facility]2022-07-25 15:00:00 Test Item Value Reference Range Interpretation Comments Glucose BF (test code = Glucose BF) 154 [facility]2022-07-25 15:00:00 Test Item Value Reference Range Interpretation Comments Gluc BF Type (test Pleural *NA*(06/13/22 code = Gluc BF Type) 10:00 AM) [facility]2022-07-25 15:00:00 Test Item Value Reference Range Interpretation Comments LDH BF (test code = LDH BF) 74 [facility] [id number] 15:00:00 Test Item Value Reference Range Interpretation Comments LDH BF Type (test Pleural *NA*(06/13/22 code = LDH BF Type) 10:00 AM) [facility]2022-07-25 15:00:00 Test Item Value Reference Range Interpretation Comments pH BF Type (test code Pleural (06/13/22 10:00 = pH BF Type) AM) [facility] [id number] 15:00:00 Test Item Value Reference Range Interpretation Comments pH BF (test code = pH BF) 8.00 1 [facility] [id number] 15:00:00 Test Item Value Reference Range Interpretation Comments Protein BF (test code = Protein BF) 1.0 [facility]2022-07-25 15:00:00 Test Item Value Reference Range Interpretation Comments Prot BF Type (test Pleural *NA*(06/13/22 code = Prot BF Type) 10:00 AM) [facility] [id number] 15:00:00 Test Item Value Reference Range Interpretation Comments Gram Stain Report Few WBC's No Organisms (test code = Gram Seen Stain Report) [facility]Culture: Aspirate/Body Fluid/[id number] 15:00:00 Test Item Value Reference Range Interpretation Comments Culture: Aspirate/Body Fluid/Tissue No Growth (test code = Culture: Aspirate/Body Fluid/Tissue) [facility] CenterannCARDIAC [id number] 08:03:00 Test Item Value Reference Range Interpretation Comments HS Troponin I 1 Hr (test code = HS 50 Troponin I 1 Hr) [facility] [employer] SistemasannCARLoungeUpAC [id number] 08:03:00 Test Item Value Reference Range Interpretation Comments HS Troponin I 0 to 1 See Note 5(06/13/22 Hour Delta (test code = 3:03 AM) HS Troponin I 0 to 1 Hour Delta) [facility] [employer] [id number] 08:03:00 Test Item Value Reference Range Interpretation Comments Glucose Lvl (test code = Glucose Lvl) 142 70-99 [facility] [employer] [id number] 08:03:00 Test Item Value Reference Range Interpretation Comments BUN (test code = BUN) 21 06-10 [facility] [employer] [id number] 08:03:00 Test Item Value Reference Range Interpretation Comments Creatinine Lvl (test code = Creatinine 0.84 0.50-1.40 Lvl) [facility] [employer]Liqu[employer]Talk [id number] 08:03:00 Test Item Value Reference Range Interpretation Comments Sodium Lvl (test code = Sodium Lvl) 133 135-145 [facility] [employer] [id number] 08:03:00 Test Item Value Reference Range Interpretation Comments Potassium Lvl (test code = Potassium 4.4 3.5-5.1 Lvl) [facility] [employer] [id number] 08:03:00 Test Item Value Reference Range Interpretation Comments Chloride Lvl (test code = Chloride Lvl) 98 95-109 [facility] [employer] [id number] 08:03:00 Test Item Value Reference Range Interpretation Comments CO2 (test code = CO2) 25 24-32 [place] 480482-07-25 08:03:00 Test Item Value Reference Range Interpretation Comments AGAP (test code = AGAP) 14.4 10.0-20.0 [place] 480482-07-25 08:03:00 Test Item Value Reference Range Interpretation Comments Calcium Lvl (test code = Calcium Lvl) 9.1 8.5-10.5 [place] 480482-07-25 08:03:00 Test Item Value Reference Range Interpretation Comments B/C Ratio (test code = B/C Ratio) 25 1 6-25 [facility] CenterIRIS.[place] [id number] 08:03:00 Test Item Value Reference Range Interpretation Comments Total Protein (test code = Total 6.7 6.4-8.4 Protein) [place] 480482-07-25 08:03:00 Test Item Value Reference Range Interpretation Comments Albumin Lvl (test code = Albumin Lvl) 3.2 3.5-5.0 [place] 480482-07-25 08:03:00 Test Item Value Reference Range Interpretation Comments Globulin (test code = Globulin) 3.5 2.7-4.2 [facility] CenterIR[facility] [id number] 08:03:00 Test Item Value Reference Range Interpretation Comments A/G Ratio (test code = A/G Ratio) 0.9 1 0.7-1.6 [place] 480482-07-25 08:03:00 Test Item Value Reference Range Interpretation Comments ALT (test code = ALT) 19 See_Comment [Auto mated message] The system which ge nerated this result transmit lavon reference range : <=65. The reference range was not used to interpr et this result as dionne l/abnormal. [facility] CenterCloudstaff [id number] 08:03:00 Test Item Value Reference Range Interpretation Comments AST (test code = AST) 26 See_Comment [Auto mated message] The system which ge nerated this result transmit lavon reference range : <=37. The reference range was not used to interpr et this result as dionne l/abnormal. [facility] [id number] 08:03:00 Test Item Value Reference Range Interpretation Comments Alk Phos (test code = Alk Phos) 56 39-136 [place] 480482-07-25 08:03:00 Test Item Value Reference Range Interpretation Comments Bili Total (test code = Bili Total) 1.0 0.2-1.3 [place] 480482-07-25 08:03:00 Test Item Value Reference Range Interpretation Comments eGFR (test code = eGFR) 67 [place] 480482-07-25 08:03:00 Test Item Value Reference Range Interpretation Comments Magnesium Lvl (test code = Magnesium 1.9 1.8-2.4 Lvl) [place] [address]-07-25 08:03:00 Test Item Value Reference Range Interpretation Comments Procalcitonin Lvl (test no gt See_Comment [Au tomated message] code = Procalcitonin Lvl) e system which generated this result transmitted ref erence range: <=0.10. The reference range was not used to interpr et this result as normal/abnormal . [place] 480482-07-25 08:03:00 Test Item Value Reference Range Interpretation Comments LDH (test code = LDH) 354 98-192 [place] [address]-07-25 08:03:00 Test Item Value Reference Range Interpretation Comments WBC (test code = WBC) 7.5 3.7-10.4 [place] [address]-07-25 08:03:00 Test Item Value Reference Range Interpretation Comments RBC (test code = RBC) 3.44 4.20-5.40 [place] [address]-07-25 08:03:00 Test Item Value Reference Range Interpretation Comments Hgb (test code = Hgb) 8.3 12.0-16.0 [place] [address]-07-25 08:03:00 Test Item Value Reference Range Interpretation Comments Hct (test code = Hct) 26.2 36.0-48.0 [place] [address]-07-25 08:03:00 Test Item Value Reference Range Interpretation Comments MCV (test code = MCV) 76.1 80.0-98.0 [place] [address]-07-25 08:03:00 Test Item Value Reference Range Interpretation Comments MCH (test code = MCH) 24.0 pg 27.0-31.0 [place] [address]-07-25 08:03:00 Test Item Value Reference Range Interpretation Comments MCHC (test code = MCHC) 31.6 32.0-36.0 [place] 325412-07-25 08:03:00 Test Item Value Reference Range Interpretation Comments RDW (test code = RDW) 20.9 11.5-14.5 [place] 325412-07-25 08:03:00 Test Item Value Reference Range Interpretation Comments Platelet (test code = Platelet) 289 133-450 [place] 325412-07-25 08:03:00 Test Item Value Reference Range Interpretation Comments MPV (test code = MPV) 7.5 7.4-10.4 [place] 325412-07-25 08:03:00 Test Item Value Reference Range Interpretation Comments Segs (test code = Segs) 94.0 45.0-75.0 [place] 325412-07-25 08:03:00 Test Item Value Reference Range Interpretation Comments Lymphocytes (test code = Lymphocytes) 4.3 20.0-40.0 [place] 325412-07-25 08:03:00 Test Item Value Reference Range Interpretation Comments Monocytes (test code = Monocytes) 1.6 2.0-12.0 [place] 325412-07-25 08:03:00 Test Item Value Reference Range Interpretation Comments Basophils (test code = 0.1 See_Comment [Aut omated message] The Basophils) system which ge nerated this result tra nsmitted reference range : <=1.0. The reference r hugo was not used to int erpret this result as normal/abnormal . [facility] [id number] 08:03:00 Test Item Value Reference Range Interpretation Comments Neutrophils # (test code = Neutrophils 7.0 1.5-8.1 #) [place] 325412-07-25 08:03:00 Test Item Value Reference Range Interpretation Comments Lymphocytes # (test code = Lymphocytes 0.3 1.0-5.5 #) [place] 325412-07-25 08:03:00 Test Item Value Reference Range Interpretation Comments Monocytes # (test code 0.1 See_Comment [Aut omated message] The = Monocytes #) system which generated this result tra nsmitted reference range : <=0.8. The reference r hugo was not used to int erpret this result as normal/abnormal . [facility] H[id number] 08:03:00 Test Item Value Reference Range Interpretation Comments Microcyte (test code = 1+ *ABN*(06/13/22 Microcyte) 3:03 AM) [facility] [id number] 08:03:00 Test Item Value Reference Range Interpretation Comments HS Troponin I 1 Hr (test code = HS 50 Troponin I 1 Hr) [facility] [id number] 08:03:00 Test Item Value Reference Range Interpretation Comments HS Troponin I 0 to 1 See Note 5(06/13/22 Hour Delta (test code = 3:03 AM) HS Troponin I 0 to 1 Hour Delta) [facility] HospitalLiquidTalk [id number] 08:03:00 Test Item Value Reference Range Interpretation Comments Glucose Lvl (test code = Glucose Lvl) 142 70-99 [facility] [id number] 08:03:00 Test Item Value Reference Range Interpretation Comments BUN (test code = BUN) 06-10 [facility]2022-07-25 08:03:00 Test Item Value Reference Range Interpretation Comments Creatinine Lvl (test code = Creatinine 0.84 0.50-1.40 Lvl) [facility]2022-07-25 08:03:00 Test Item Value Reference Range Interpretation Comments Sodium Lvl (test code = Sodium Lvl) 133 135-145 [facility]2022-07-25 08:03:00 Test Item Value Reference Range Interpretation Comments Potassium Lvl (test code = Potassium 4.4 3.5-5.1 Lvl) [facility] [id number] 08:03:00 Test Item Value Reference Range Interpretation Comments Chloride Lvl (test code = Chloride Lvl) 98 95-109 [facility] [id number] 08:03:00 Test Item Value Reference Range Interpretation Comments CO2 (test code = CO2) -32 [facility]2022-07-25 08:03:00 Test Item Value Reference Range Interpretation Comments AGAP (test code = AGAP) 14.4 10.0-20.0 [facility] [id number] 08:03:00 Test Item Value Reference Range Interpretation Comments Calcium Lvl (test code = Calcium Lvl) 9.1 8.5-10.5 [facility] [id number] 08:03:00 Test Item Value Reference Range Interpretation Comments B/C Ratio (test code = B/C Ratio) 25 1 6-25 [facility] [id number] 08:03:00 Test Item Value Reference Range Interpretation Comments Total Protein (test code = Total 6.7 6.4-8.4 Protein) [facility] [id number] 08:03:00 Test Item Value Reference Range Interpretation Comments Albumin Lvl (test code = Albumin Lvl) 3.2 3.5-5.0 [facility] [id number] 08:03:00 Test Item Value Reference Range Interpretation Comments Globulin (test code = Globulin) 3.5 2.7-4.2 [facility] [id number] 08:03:00 Test Item Value Reference Range Interpretation Comments A/G Ratio (test code = A/G Ratio) 0.9 1 0.7-1.6 [facility] [id number] 08:03:00 Test Item Value Reference Range Interpretation Comments ALT (test code = ALT) 19 See_Comment [Auto mated message] The system which ge nerated this result transmit lavon reference range : <=65. The reference range was not used to interpr et this result as dionne l/abnormal. [facility] [employer] [id number] 08:03:00 Test Item Value Reference Range Interpretation Comments AST (test code = AST) 26 See_Comment [Auto mated message] The system which ge nerated this result transmit lavon reference range : <=37. The reference range was not used to interpr et this result as dionne l/abnormal. [facility] [id number] 08:03:00 Test Item Value Reference Range Interpretation Comments Alk Phos (test code = Alk Phos) 56 39-136 [facility] [id number] 08:03:00 Test Item Value Reference Range Interpretation Comments Bili Total (test code = Bili Total) 1.0 0.2-1.3 [facility] [id number] 08:03:00 Test Item Value Reference Range Interpretation Comments eGFR (test code = eGFR) 67 [facility]2022-07-25 08:03:00 Test Item Value Reference Range Interpretation Comments Magnesium Lvl (test code = Magnesium 1.9 1.8-2.4 Lvl) [place] 480482-07-25 08:03:00 Test Item Value Reference Range Interpretation Comments Procalcitonin Lvl (test no gt See_Comment [Au tomated message] code = Procalcitonin Lvl) e system which generated this result transmitted ref erence range: <=0.10. The reference range was not used to interpr et this result as normal/abnormal . [place] 480482-07-25 08:03:00 Test Item Value Reference Range Interpretation Comments LDH (test code = LDH) 354 98-192 [facility] [id number] 08:03:00 Test Item Value Reference Range Interpretation Comments WBC (test code = WBC) 7.5 3.7-10.4 [place] 325412-07-25 08:03:00 Test Item Value Reference Range Interpretation Comments RBC (test code = RBC) 3.44 4.20-5.40 [place] 325412-07-25 08:03:00 Test Item Value Reference Range Interpretation Comments Hgb (test code = Hgb) 8.3 12.0-16.0 [facility] [id number] 08:03:00 Test Item Value Reference Range Interpretation Comments Hct (test code = Hct) 26.2 36.0-48.0 [place] 325412-07-25 08:03:00 Test Item Value Reference Range Interpretation Comments MCV (test code = MCV) 76.1 80.0-98.0 [place] 325412-07-25 08:03:00 Test Item Value Reference Range Interpretation Comments MCH (test code = MCH) 24.0 pg 27.0-31.0 [place] 325412-07-25 08:03:00 Test Item Value Reference Range Interpretation Comments MCHC (test code = MCHC) 31.6 32.0-36.0 [place] [address]-07-25 08:03:00 Test Item Value Reference Range Interpretation Comments RDW (test code = RDW) 20.9 11.5-14.5 [place] 325412-07-25 08:03:00 Test Item Value Reference Range Interpretation Comments Platelet (test code = Platelet) 289 133-450 [facility] [id number] 08:03:00 Test Item Value Reference Range Interpretation Comments MPV (test code = MPV) 7.5 7.4-10.4 [place] 325412-07-25 08:03:00 Test Item Value Reference Range Interpretation Comments Segs (test code = Segs) 94.0 45.0-75.0 [facility] CampusViqeypxSABADCWXOO0367-87-13 08:03:00 Test Item Value Reference Range Interpretation Comments Lymphocytes (test code = Lymphocytes) 4.3 20.0-40.0 [facility] [id number] 08:03:00 Test Item Value Reference Range Interpretation Comments Monocytes (test code = Monocytes) 1.6 2.0-12.0 [facility] C[id number] 08:03:00 Test Item Value Reference Range Interpretation Comments Basophils (test code = 0.1 See_Comment [Aut omated message] The Basophils) system which ge nerated this result tra nsmitted reference range : <=1.0. The reference r hugo was not used to int erpret this result as normal/abnormal . [facility] [id number] 08:03:00 Test Item Value Reference Range Interpretation Comments Neutrophils # (test code = Neutrophils 7.0 1.5-8.1 #) [facility] CampusFkldcqxDVCLOUJIOY6267-59-06 08:03:00 Test Item Value Reference Range Interpretation Comments Lymphocytes # (test code = Lymphocytes 0.3 1.0-5.5 #) [facility] [id number] 08:03:00 Test Item Value Reference Range Interpretation Comments Monocytes # (test code 0.1 See_Comment [Aut omated message] The = Monocytes #) system which generated this result tra nsmitted reference range : <=0.8. The reference r hugo was not used to int erpret this result as normal/abnormal . [facility] CampusRiykkgjZJQZTEUPFR2035-88-75 08:03:00 Test Item Value Reference Range Interpretation Comments Microcyte (test code = 1+ *ABN*(06/13/22 Microcyte) 3:03 AM) [facility]2022-07-25 08:03:00 Test Item Value Reference Range Interpretation Comments HS Troponin I 1 Hr (test code = HS 50 Troponin I 1 Hr) [facility] [id number] 08:03:00 Test Item Value Reference Range Interpretation Comments HS Troponin I 0 to 1 See Note 5(06/13/22 Hour Delta (test code = 3:03 AM) HS Troponin I 0 to 1 Hour Delta) [facility]id[facility] [id number] 08:03:00 Test Item Value Reference Range Interpretation Comments Glucose Lvl (test code = Glucose Lvl) 142 70-99 [facility] [id number] 08:03:00 Test Item Value Reference Range Interpretation Comments BUN (test code = BUN) 21 06-10 [facility]2022-07-25 08:03:00 Test Item Value Reference Range Interpretation Comments Creatinine Lvl (test code = Creatinine 0.84 0.50-1.40 Lvl) [facility] [id number] 08:03:00 Test Item Value Reference Range Interpretation Comments Sodium Lvl (test code = Sodium Lvl) 133 135-145 [facility] [id number] 08:03:00 Test Item Value Reference Range Interpretation Comments Potassium Lvl (test code = Potassium 4.4 3.5-5.1 Lvl) [facility] [id number] 08:03:00 Test Item Value Reference Range Interpretation Comments Chloride Lvl (test code = Chloride Lvl) 98 95-109 [facility]2022-07-25 08:03:00 Test Item Value Reference Range Interpretation Comments CO2 (test code = CO2) 25 24-32 [facility]2022-07-25 08:03:00 Test Item Value Reference Range Interpretation Comments AGAP (test code = AGAP) 14.4 10.0-20.0 [facility]2022-07-25 08:03:00 Test Item Value Reference Range Interpretation Comments Calcium Lvl (test code = Calcium Lvl) 9.1 8.5-10.5 [facility]2022-07-25 08:03:00 Test Item Value Reference Range Interpretation Comments B/C Ratio (test code = B/C Ratio) 25 1 6-25 [facility] [id number] 08:03:00 Test Item Value Reference Range Interpretation Comments Total Protein (test code = Total 6.7 6.4-8.4 Protein) [place] [address]-07-25 08:03:00 Test Item Value Reference Range Interpretation Comments Albumin Lvl (test code = Albumin Lvl) 3.2 3.5-5.0 [place] [address]-07-25 08:03:00 Test Item Value Reference Range Interpretation Comments Globulin (test code = Globulin) 3.5 2.7-4.2 [place] [address]-07-25 08:03:00 Test Item Value Reference Range Interpretation Comments A/G Ratio (test code = A/G Ratio) 0.9 1 0.7-1.6 [place] [address]-07-25 08:03:00 Test Item Value Reference Range Interpretation Comments ALT (test code = ALT) 19 See_Comment [Auto mated message] The system which ge nerated this result transmit lavon reference range : <=65. The reference range was not used to interpr et this result as dionne l/abnormal. [place] [address]-07-25 08:03:00 Test Item Value Reference Range Interpretation Comments AST (test code = AST) 26 See_Comment [Auto mated message] The system which ge nerated this result transmit lavon reference range : <=37. The reference range was not used to interpr et this result as dionne l/abnormal. [place] [address]-07-25 08:03:00 Test Item Value Reference Range Interpretation Comments Alk Phos (test code = Alk Phos) 56 39-136 [place] [address]-07-25 08:03:00 Test Item Value Reference Range Interpretation Comments Bili Total (test code = Bili Total) 1.0 0.2-1.3 [place] [address]-07-25 08:03:00 Test Item Value Reference Range Interpretation Comments eGFR (test code = eGFR) 67 [place] [address]-07-25 08:03:00 Test Item Value Reference Range Interpretation Comments Magnesium Lvl (test code = Magnesium 1.9 1.8-2.4 Lvl) [place] [address]-07-25 08:03:00 Test Item Value Reference Range Interpretation Comments Procalcitonin Lvl (test no gt See_Comment [Au tomated message] code = Procalcitonin Lvl) Th e system which generated this result transmitted ref erence range: <=0.10. The reference range was not used to interpr et this result as normal/abnormal . [facility]2022-07-25 08:03:00 Test Item Value Reference Range Interpretation Comments LDH (test code = LDH) 354 98-192 [facility] CampusDucjaixBIKTBYRFAW2218-27-74 08:03:00 Test Item Value Reference Range Interpretation Comments WBC (test code = WBC) 7.5 3.7-10.4 [facility] CampusIbrarewIYBDMNKTJD1779-76-83 08:03:00 Test Item Value Reference Range Interpretation Comments RBC (test code = RBC) 3.44 4.20-5.40 [place] 325412-07-25 08:03:00 Test Item Value Reference Range Interpretation Comments Hgb (test code = Hgb) 8.3 12.0-16.0 [facility] CampusEywwukaEXJAAXRDAB8466-17-41 08:03:00 Test Item Value Reference Range Interpretation Comments Hct (test code = Hct) 26.2 36.0-48.0 [facility] CampusQpaglkfZZCBVCRBCM8345-41-41 08:03:00 Test Item Value Reference Range Interpretation Comments MCV (test code = MCV) 76.1 80.0-98.0 [facility] CampusPnprcgcXOHPBYBTFN7012-52-16 08:03:00 Test Item Value Reference Range Interpretation Comments MCH (test code = MCH) 24.0 pg 27.0-31.0 [facility] CampusXxpejoeUCZSGFMWUV8804-05-32 08:03:00 Test Item Value Reference Range Interpretation Comments MCHC (test code = MCHC) 31.6 32.0-36.0 [facility] CampusUdtrxhmQQSQEXXZIU2887-54-08 08:03:00 Test Item Value Reference Range Interpretation Comments RDW (test code = RDW) 20.9 11.5-14.5 [place] 325412-07-25 08:03:00 Test Item Value Reference Range Interpretation Comments Platelet (test code = Platelet) 289 133-450 [facility] CampusUfwdrciCOEWQINOWS5803-25-20 08:03:00 Test Item Value Reference Range Interpretation Comments MPV (test code = MPV) 7.5 7.4-10.4 [facility] CampusLyyfiymCVENUAEJCE2794-14-53 08:03:00 Test Item Value Reference Range Interpretation Comments Segs (test code = Segs) 94.0 45.0-75.0 [facility] CampusCqgixiiFBZQMVVABY5667-99-06 08:03:00 Test Item Value Reference Range Interpretation Comments Lymphocytes (test code = Lymphocytes) 4.3 20.0-40.0 [facility] CampusKqofcdcUYEVVGHIEX8212-02-51 08:03:00 Test Item Value Reference Range Interpretation Comments Monocytes (test code = Monocytes) 1.6 2.0-12.0 [facility] CampusNrrblbgKZBJUWYBDY0419-04-79 08:03:00 Test Item Value Reference Range Interpretation Comments Basophils (test code = 0.1 See_Comment [Aut omated message] The Basophils) system which ge nerated this result tra nsmitted reference range : <=1.0. The reference r hugo was not used to int erpret this result as normal/abnormal . [facility] CampusRuijvckUONGGCDXWY8299-75-29 08:03:00 Test Item Value Reference Range Interpretation Comments Neutrophils # (test code = Neutrophils 7.0 1.5-8.1 #) [facility] CampusBltmeipYJCQGAJSSF7607-32-89 08:03:00 Test Item Value Reference Range Interpretation Comments Lymphocytes # (test code = Lymphocytes 0.3 1.0-5.5 #) [facility] CampusXahtavbMJWVFFDTJH5367-18-62 08:03:00 Test Item Value Reference Range Interpretation Comments Monocytes # (test code 0.1 See_Comment [Aut omated message] The = Monocytes #) system which generated this result tra nsmitted reference range : <=0.8. The reference r hugo was not used to int erpret this result as normal/abnormal . [facility] CampusTntgepfOOCPOPAJIC6171-53-52 08:03:00 Test Item Value Reference Range Interpretation Comments Microcyte (test code = 1+ *ABN*(06/13/22 Microcyte) 3:03 AM) [facility] [id number] 08:03:00 Test Item Value Reference Range Interpretation Comments HS Troponin I 1 Hr (test code = HS 50 Troponin I 1 Hr) [facility] [id number] 08:03:00 Test Item Value Reference Range Interpretation Comments HS Troponin I 0 to 1 See Note 5(06/13/22 Hour Delta (test code = 3:03 AM) HS Troponin I 0 to 1 Hour Delta) [place] 480482-07-25 08:03:00 Test Item Value Reference Range Interpretation Comments Glucose Lvl (test code = Glucose Lvl) 142 70-99 [place] 480482-07-25 08:03:00 Test Item Value Reference Range Interpretation Comments BUN (test code = BUN) 21 7-22 [place] 480482-07-25 08:03:00 Test Item Value Reference Range Interpretation Comments Creatinine Lvl (test code = Creatinine 0.84 0.50-1.40 Lvl) [place] 480482-07-25 08:03:00 Test Item Value Reference Range Interpretation Comments Sodium Lvl (test code = Sodium Lvl) 133 135-145 [place] 480482-07-25 08:03:00 Test Item Value Reference Range Interpretation Comments Potassium Lvl (test code = Potassium 4.4 3.5-5.1 Lvl) [place] 480482-07-25 08:03:00 Test Item Value Reference Range Interpretation Comments Chloride Lvl (test code = Chloride Lvl) 98 95-109 [place] 480482-07-25 08:03:00 Test Item Value Reference Range Interpretation Comments CO2 (test code = CO2) 25 24-32 [place] 480482-07-25 08:03:00 Test Item Value Reference Range Interpretation Comments AGAP (test code = AGAP) 14.4 10.0-20.0 [place] 480482-07-25 08:03:00 Test Item Value Reference Range Interpretation Comments Calcium Lvl (test code = Calcium Lvl) 9.1 8.5-10.5 [place] 480482-07-25 08:03:00 Test Item Value Reference Range Interpretation Comments B/C Ratio (test code = B/C Ratio) 25 1 6-25 [place] 480482-07-25 08:03:00 Test Item Value Reference Range Interpretation Comments Total Protein (test code = Total 6.7 6.4-8.4 Protein) [place] 480482-07-25 08:03:00 Test Item Value Reference Range Interpretation Comments Albumin Lvl (test code = Albumin Lvl) 3.2 3.5-5.0 [place] 480482-07-25 08:03:00 Test Item Value Reference Range Interpretation Comments Globulin (test code = Globulin) 3.5 2.7-4.2 [facility] [employer] [id number] 08:03:00 Test Item Value Reference Range Interpretation Comments A/G Ratio (test code = A/G Ratio) 0.9 1 0.7-1.6 [facility] [id number] 08:03:00 Test Item Value Reference Range Interpretation Comments ALT (test code = ALT) 19 See_Comment [Auto mated message] The system which ge nerated this result transmit lavon reference range : <=65. The reference range was not used to interpr et this result as dionne l/abnormal. [facility] [employer] [id number] 08:03:00 Test Item Value Reference Range Interpretation Comments AST (test code = AST) 26 See_Comment [Auto mated message] The system which ge nerated this result transmit lavon reference range : <=37. The reference range was not used to interpr et this result as dionne l/abnormal. [facility] [employer] [id number] 08:03:00 Test Item Value Reference Range Interpretation Comments Alk Phos (test code = Alk Phos) 56 39-136 [facility] [employer] [id number] 08:03:00 Test Item Value Reference Range Interpretation Comments Bili Total (test code = Bili Total) 1.0 0.2-1.3 [facility] [employer] [id number] 08:03:00 Test Item Value Reference Range Interpretation Comments eGFR (test code = eGFR) 67 [facility] [employer] [id number] 08:03:00 Test Item Value Reference Range Interpretation Comments Magnesium Lvl (test code = Magnesium 1.9 1.8-2.4 Lvl) [facility] [id number] 08:03:00 Test Item Value Reference Range Interpretation Comments Procalcitonin Lvl (test no gt See_Comment [Au tomated message] code = Procalcitonin Lvl) Th e system which generated this result transmitted ref erence range: <=0.10. The reference range was not used to interpr et this result as normal/abnormal . [facility] [employer] [id number] 08:03:00 Test Item Value Reference Range Interpretation Comments LDH (test code = LDH) 354 98-192 [facility] CampusJgescrsQTKSMFEMTQ3144-85-57 08:03:00 Test Item Value Reference Range Interpretation Comments WBC (test code = WBC) 7.5 3.7-10.4 [facility] CampusYzrphonXYUQNRYZDC0167-85-58 08:03:00 Test Item Value Reference Range Interpretation Comments RBC (test code = RBC) 3.44 4.20-5.40 [place] 325412-07-25 08:03:00 Test Item Value Reference Range Interpretation Comments Hgb (test code = Hgb) 8.3 12.0-16.0 [place] 325412-07-25 08:03:00 Test Item Value Reference Range Interpretation Comments Hct (test code = Hct) 26.2 36.0-48.0 [facility] CampusXwebualSOHGONPHRE1337-96-27 08:03:00 Test Item Value Reference Range Interpretation Comments MCV (test code = MCV) 76.1 80.0-98.0 [facility] CampusPdodeogOHGSGJKJRC4421-96-76 08:03:00 Test Item Value Reference Range Interpretation Comments MCH (test code = MCH) 24.0 pg 27.0-31.0 [facility] CampusIlnjhnbEFUJNVWXJK1416-25-09 08:03:00 Test Item Value Reference Range Interpretation Comments MCHC (test code = MCHC) 31.6 32.0-36.0 [facility] CampusXuzdiduNEHLJRIBJJ5814-99-58 08:03:00 Test Item Value Reference Range Interpretation Comments RDW (test code = RDW) 20.9 11.5-14.5 [facility] CampusGjkqsssEVRSCPUVLV6702-29-07 08:03:00 Test Item Value Reference Range Interpretation Comments Platelet (test code = Platelet) 289 133-450 [facility] CampusKknrykmDTSMHKUJRR7870-98-36 08:03:00 Test Item Value Reference Range Interpretation Comments MPV (test code = MPV) 7.5 7.4-10.4 [place] 325412-07-25 08:03:00 Test Item Value Reference Range Interpretation Comments Segs (test code = Segs) 94.0 45.0-75.0 [place] 325412-07-25 08:03:00 Test Item Value Reference Range Interpretation Comments Lymphocytes (test code = Lymphocytes) 4.3 20.0-40.0 [place] 325412-07-25 08:03:00 Test Item Value Reference Range Interpretation Comments Monocytes (test code = Monocytes) 1.6 2.0-12.0 [facility] CenterDebwgvxPIXRQKZCTL3258-58-09 08:03:00 Test Item Value Reference Range Interpretation Comments Basophils (test code = 0.1 See_Comment [Aut omated message] The Basophils) system which ge nerated this result tra nsmitted reference range : <=1.0. The reference r hugo was not used to int erpret this result as normal/abnormal . [facility] CenterEcekpfvLXYNHPJLKC3776-47-41 08:03:00 Test Item Value Reference Range Interpretation Comments Neutrophils # (test code = Neutrophils 7.0 1.5-8.1 #) [facility] HospitalXdifrruUJIHTSQBPL3722-74-99 08:03:00 Test Item Value Reference Range Interpretation Comments Lymphocytes # (test code = Lymphocytes 0.3 1.0-5.5 #) [facility] CenterNqylunlBCBXDQFZTT2289-74-56 08:03:00 Test Item Value Reference Range Interpretation Comments Monocytes # (test code 0.1 See_Comment [Aut omated message] The = Monocytes #) system which generated this result tra nsmitted reference range : <=0.8. The reference r hugo was not used to int erpret this result as normal/abnormal . [facility] CenterQalhxguMFFXOBNNYJ9838-09-74 08:03:00 Test Item Value Reference Range Interpretation Comments Microcyte (test code = 1+ *ABN*(06/13/22 Microcyte) 3:03 AM) [facility] 08:03:00 Test Item Value Reference Range Interpretation Comments HS Troponin I 1 Hr (test code = HS 50 Troponin I 1 Hr) [facility] 08:03:00 Test Item Value Reference Range Interpretation Comments HS Troponin I 0 to 1 See Note 5(06/13/22 Hour Delta (test code = 3:03 AM) HS Troponin I 0 to 1 Hour Delta) [facility] [employer]2022-07-25 08:03:00 Test Item Value Reference Range Interpretation Comments Glucose Lvl (test code = Glucose Lvl) 142 70-99 [facility] [employer]2022-07-25 08:03:00 Test Item Value Reference Range Interpretation Comments BUN (test code = BUN) 21 06-10 [place] 480482-07-25 08:03:00 Test Item Value Reference Range Interpretation Comments Creatinine Lvl (test code = Creatinine 0.84 0.50-1.40 Lvl) [place] 480482-07-25 08:03:00 Test Item Value Reference Range Interpretation Comments Sodium Lvl (test code = Sodium Lvl) 133 135-145 [place] 480482-07-25 08:03:00 Test Item Value Reference Range Interpretation Comments Potassium Lvl (test code = Potassium 4.4 3.5-5.1 Lvl) [place] 480482-07-25 08:03:00 Test Item Value Reference Range Interpretation Comments Chloride Lvl (test code = Chloride Lvl) 98 95-109 [place] 480482-07-25 08:03:00 Test Item Value Reference Range Interpretation Comments CO2 (test code = CO2) 25 24-32 [place] 480482-07-25 08:03:00 Test Item Value Reference Range Interpretation Comments AGAP (test code = AGAP) 14.4 10.0-20.0 [place] 480482-07-25 08:03:00 Test Item Value Reference Range Interpretation Comments Calcium Lvl (test code = Calcium Lvl) 9.1 8.5-10.5 [place] 480482-07-25 08:03:00 Test Item Value Reference Range Interpretation Comments B/C Ratio (test code = B/C Ratio) 25 1 6-25 [place] 480482-07-25 08:03:00 Test Item Value Reference Range Interpretation Comments Total Protein (test code = Total 6.7 6.4-8.4 Protein) [facility]2022-07-25 08:03:00 Test Item Value Reference Range Interpretation Comments Albumin Lvl (test code = Albumin Lvl) 3.2 3.5-5.0 [place] 480482-07-25 08:03:00 Test Item Value Reference Range Interpretation Comments Globulin (test code = Globulin) 3.5 2.7-4.2 [place] 480482-07-25 08:03:00 Test Item Value Reference Range Interpretation Comments A/G Ratio (test code = A/G Ratio) 0.9 1 0.7-1.6 [place] 480482-07-25 08:03:00 Test Item Value Reference Range Interpretation Comments ALT (test code = ALT) 19 See_Comment [Auto mated message] The system which ge nerated this result transmit lavon reference range : <=65. The reference range was not used to interpr et this result as dionne l/abnormal. [facility] [employer] [id number] 08:03:00 Test Item Value Reference Range Interpretation Comments AST (test code = AST) 26 See_Comment [Auto mated message] The system which ge nerated this result transmit lavon reference range : <=37. The reference range was not used to interpr et this result as dionne l/abnormal. [facility] [employer] [id number] 08:03:00 Test Item Value Reference Range Interpretation Comments Alk Phos (test code = Alk Phos) 56 39-136 [facility] [employer] [id number] 08:03:00 Test Item Value Reference Range Interpretation Comments Bili Total (test code = Bili Total) 1.0 0.2-1.3 [facility] [employer] [id number] 08:03:00 Test Item Value Reference Range Interpretation Comments eGFR (test code = eGFR) 67 [facility] [id number] 08:03:00 Test Item Value Reference Range Interpretation Comments Magnesium Lvl (test code = Magnesium 1.9 1.8-2.4 Lvl) [facility] [id number] 08:03:00 Test Item Value Reference Range Interpretation Comments Procalcitonin Lvl (test no gt See_Comment [Au tomated message] code = Procalcitonin Lvl) Th e system which generated this result transmitted ref erence range: <=0.10. The reference range was not used to interpr et this result as normal/abnormal . [facility] [employer] [id number] 08:03:00 Test Item Value Reference Range Interpretation Comments LDH (test code = LDH) 354 98-192 [facility] HospitalRnszbfxQSAJMRXIFX3666-78-00 08:03:00 Test Item Value Reference Range Interpretation Comments WBC (test code = WBC) 7.5 3.7-10.4 [facility] CenterYdkhhfqRLCFRLOBGJ5598-68-56 08:03:00 Test Item Value Reference Range Interpretation Comments RBC (test code = RBC) 3.44 4.20-5.40 [place] 325412-07-25 08:03:00 Test Item Value Reference Range Interpretation Comments Hgb (test code = Hgb) 8.3 12.0-16.0 [place] 325412-07-25 08:03:00 Test Item Value Reference Range Interpretation Comments Hct (test code = Hct) 26.2 36.0-48.0 [place] 325412-07-25 08:03:00 Test Item Value Reference Range Interpretation Comments MCV (test code = MCV) 76.1 80.0-98.0 [place] 325412-07-25 08:03:00 Test Item Value Reference Range Interpretation Comments MCH (test code = MCH) 24.0 pg 27.0-31.0 [facility] CampusNfcycsdQVQSWPJIDA2187-43-54 08:03:00 Test Item Value Reference Range Interpretation Comments MCHC (test code = MCHC) 31.6 32.0-36.0 [facility] CampusCpgxjiuJDXEZGCAMB3884-38-56 08:03:00 Test Item Value Reference Range Interpretation Comments RDW (test code = RDW) 20.9 11.5-14.5 [place] 325412-07-25 08:03:00 Test Item Value Reference Range Interpretation Comments Platelet (test code = Platelet) 289 133-450 [facility] CampusNedqoyxLDGBQZIPVO4170-40-41 08:03:00 Test Item Value Reference Range Interpretation Comments MPV (test code = MPV) 7.5 7.4-10.4 [place] 325412-07-25 08:03:00 Test Item Value Reference Range Interpretation Comments Segs (test code = Segs) 94.0 45.0-75.0 [place] 325412-07-25 08:03:00 Test Item Value Reference Range Interpretation Comments Lymphocytes (test code = Lymphocytes) 4.3 20.0-40.0 [place] 325412-07-25 08:03:00 Test Item Value Reference Range Interpretation Comments Monocytes (test code = Monocytes) 1.6 2.0-12.0 [place] 325412-07-25 08:03:00 Test Item Value Reference Range Interpretation Comments Basophils (test code = 0.1 See_Comment [Aut omated message] The Basophils) system which ge nerated this result tra nsmitted reference range : <=1.0. The reference r hugo was not used to int erpret this result as normal/abnormal . [facility] CenterYadoxuhWAWWTVYRIG3164-40-35 08:03:00 Test Item Value Reference Range Interpretation Comments Neutrophils # (test code = Neutrophils 7.0 1.5-8.1 #) [facility] CenterKupynhiGDKBSEJYNE9903-35-09 08:03:00 Test Item Value Reference Range Interpretation Comments Lymphocytes # (test code = Lymphocytes 0.3 1.0-5.5 #) [facility] HospitalEbjdfnkHIVNHBYJAS8240-37-17 08:03:00 Test Item Value Reference Range Interpretation Comments Monocytes # (test code 0.1 See_Comment [Aut omated message] The = Monocytes #) system which generated this result tra nsmitted reference range : <=0.8. The reference r hugo was not used to int erpret this result as normal/abnormal . [facility] HospitalWswttkjQCZYSZCZQT9448-32-85 08:03:00 Test Item Value Reference Range Interpretation Comments Microcyte (test code = 1+ *ABN*(06/13/22 Microcyte) 3:03 AM) [facility] [id number] 08:03:00 Test Item Value Reference Range Interpretation Comments HS Troponin I 1 Hr (test code = HS 50 Troponin I 1 Hr) [facility] [id number] 08:03:00 Test Item Value Reference Range Interpretation Comments HS Troponin I 0 to 1 See Note 5(06/13/22 Hour Delta (test code = 3:03 AM) HS Troponin I 0 to 1 Hour Delta) [facility] [employer] Alert2022-07-25 08:03:00 Test Item Value Reference Range Interpretation Comments Glucose Lvl (test code = Glucose Lvl) 142 70-99 [facility] Egil [id number] 08:03:00 Test Item Value Reference Range Interpretation Comments BUN (test code = BUN) 21 06-10 [facility] [id number] 08:03:00 Test Item Value Reference Range Interpretation Comments Creatinine Lvl (test code = Creatinine 0.84 0.50-1.40 Lvl) [facility] [id number] 08:03:00 Test Item Value Reference Range Interpretation Comments Sodium Lvl (test code = Sodium Lvl) 133 135-145 [place] 480482-07-25 08:03:00 Test Item Value Reference Range Interpretation Comments Potassium Lvl (test code = Potassium 4.4 3.5-5.1 Lvl) [place] 480482-07-25 08:03:00 Test Item Value Reference Range Interpretation Comments Chloride Lvl (test code = Chloride Lvl) 98 95-109 [place] 480482-07-25 08:03:00 Test Item Value Reference Range Interpretation Comments CO2 (test code = CO2) 25 24-32 [place] 480482-07-25 08:03:00 Test Item Value Reference Range Interpretation Comments AGAP (test code = AGAP) 14.4 10.0-20.0 [place] 480482-07-25 08:03:00 Test Item Value Reference Range Interpretation Comments Calcium Lvl (test code = Calcium Lvl) 9.1 8.5-10.5 [place] 480482-07-25 08:03:00 Test Item Value Reference Range Interpretation Comments B/C Ratio (test code = B/C Ratio) 25 1 6-25 [place] 480482-07-25 08:03:00 Test Item Value Reference Range Interpretation Comments Total Protein (test code = Total 6.7 6.4-8.4 Protein) [place] 480482-07-25 08:03:00 Test Item Value Reference Range Interpretation Comments Albumin Lvl (test code = Albumin Lvl) 3.2 3.5-5.0 [place] 480482-07-25 08:03:00 Test Item Value Reference Range Interpretation Comments Globulin (test code = Globulin) 3.5 2.7-4.2 [place] 480482-07-25 08:03:00 Test Item Value Reference Range Interpretation Comments A/G Ratio (test code = A/G Ratio) 0.9 1 0.7-1.6 [place] 480482-07-25 08:03:00 Test Item Value Reference Range Interpretation Comments ALT (test code = ALT) 19 See_Comment [Auto mated message] The system which ge nerated this result transmit lavon reference range : <=65. The reference range was not used to interpr et this result as dionne l/abnormal. [place] 480482-07-25 08:03:00 Test Item Value Reference Range Interpretation Comments AST (test code = AST) 26 See_Comment [Auto mated message] The system which ge nerated this result transmit lavon reference range : <=37. The reference range was not used to interpr et this result as dionne l/abnormal. [facility] [employer] [id number] 08:03:00 Test Item Value Reference Range Interpretation Comments Alk Phos (test code = Alk Phos) 56 39-136 [facility] [id number] 08:03:00 Test Item Value Reference Range Interpretation Comments Bili Total (test code = Bili Total) 1.0 0.2-1.3 [facility] [employer] [id number] 08:03:00 Test Item Value Reference Range Interpretation Comments eGFR (test code = eGFR) 67 [facility] [id number] 08:03:00 Test Item Value Reference Range Interpretation Comments Magnesium Lvl (test code = Magnesium 1.9 1.8-2.4 Lvl) [facility] [id number] 08:03:00 Test Item Value Reference Range Interpretation Comments Procalcitonin Lvl (test no gt See_Comment [Au tomated message] code = Procalcitonin Lvl) Th e system which generated this result transmitted ref erence range: <=0.10. The reference range was not used to interpr et this result as normal/abnormal . [facility] [id number] 08:03:00 Test Item Value Reference Range Interpretation Comments LDH (test code = LDH) 354 98-192 [facility]KshilkyVCOUGFGQUM8618-36-53 08:03:00 Test Item Value Reference Range Interpretation Comments WBC (test code = WBC) 7.5 3.7-10.4 [facility] HospitalRngnfnjGXQOAYUVYB3914-05-11 08:03:00 Test Item Value Reference Range Interpretation Comments RBC (test code = RBC) 3.44 4.20-5.40 [facility] HospitalIkglppyTTABPQBFRD8616-02-65 08:03:00 Test Item Value Reference Range Interpretation Comments Hgb (test code = Hgb) 8.3 12.0-16.0 [facility] HospitalZhsezzlYUVXGLDFED2436-84-20 08:03:00 Test Item Value Reference Range Interpretation Comments Hct (test code = Hct) 26.2 36.0-48.0 [place] [address]-07-25 08:03:00 Test Item Value Reference Range Interpretation Comments MCV (test code = MCV) 76.1 80.0-98.0 [place] [address]-07-25 08:03:00 Test Item Value Reference Range Interpretation Comments MCH (test code = MCH) 24.0 pg 27.0-31.0 [place] 325412-07-25 08:03:00 Test Item Value Reference Range Interpretation Comments MCHC (test code = MCHC) 31.6 32.0-36.0 [place] [address]-07-25 08:03:00 Test Item Value Reference Range Interpretation Comments RDW (test code = RDW) 20.9 11.5-14.5 [place] [address]-07-25 08:03:00 Test Item Value Reference Range Interpretation Comments Platelet (test code = Platelet) 289 133-450 [place] 325412-07-25 08:03:00 Test Item Value Reference Range Interpretation Comments MPV (test code = MPV) 7.5 7.4-10.4 [place] [address]-07-25 08:03:00 Test Item Value Reference Range Interpretation Comments Segs (test code = Segs) 94.0 45.0-75.0 [place] [address]-07-25 08:03:00 Test Item Value Reference Range Interpretation Comments Lymphocytes (test code = Lymphocytes) 4.3 20.0-40.0 [place] 325412-07-25 08:03:00 Test Item Value Reference Range Interpretation Comments Monocytes (test code = Monocytes) 1.6 2.0-12.0 [place] [address]-07-25 08:03:00 Test Item Value Reference Range Interpretation Comments Basophils (test code = 0.1 See_Comment [Aut omated message] The Basophils) system which ge nerated this result tra nsmitted reference range : <=1.0. The reference r hugo was not used to int erpret this result as normal/abnormal . [place] 325412-07-25 08:03:00 Test Item Value Reference Range Interpretation Comments Neutrophils # (test code = Neutrophils 7.0 1.5-8.1 #) [place] 325412-07-25 08:03:00 Test Item Value Reference Range Interpretation Comments Lymphocytes # (test code = Lymphocytes 0.3 1.0-5.5 #) [facility] HospitalHyluaexTPWWKZQKJC8489-14-90 08:03:00 Test Item Value Reference Range Interpretation Comments Monocytes # (test code 0.1 See_Comment [Aut omated message] The = Monocytes #) system which generated this result tra nsmitted reference range : <=0.8. The reference r hugo was not used to int erpret this result as normal/abnormal . [facility] HospitalPxlvmyqSOMQOXDVKI3143-74-12 08:03:00 Test Item Value Reference Range Interpretation Comments Microcyte (test code = 1+ *ABN*(06/13/22 Microcyte) 3:03 AM) [facility] 08:03:00 Test Item Value Reference Range Interpretation Comments HS Troponin I 1 Hr (test code = HS 50 Troponin I 1 Hr) [facility] CenterACTV8 [id number] 08:03:00 Test Item Value Reference Range Interpretation Comments HS Troponin I 0 to 1 See Note 5(06/13/22 Hour Delta (test code = 3:03 AM) HS Troponin I 0 to 1 Hour Delta) [facility] [id number] 08:03:00 Test Item Value Reference Range Interpretation Comments Glucose Lvl (test code = Glucose Lvl) 142 70-99 [facility] [employer] [id number] 08:03:00 Test Item Value Reference Range Interpretation Comments BUN (test code = BUN) 21 7- [facility] [employer] Alert2022-07-25 08:03:00 Test Item Value Reference Range Interpretation Comments Creatinine Lvl (test code = Creatinine 0.84 0.50-1.40 Lvl) [facility] Egil KvalebergRHXED1509-97-32 08:03:00 Test Item Value Reference Range Interpretation Comments Sodium Lvl (test code = Sodium Lvl) 133 135-145 [facility] [employer] [id number] 08:03:00 Test Item Value Reference Range Interpretation Comments Potassium Lvl (test code = Potassium 4.4 3.5-5.1 Lvl) [facility] Egil KvalebergTXVEA1063-19-48 08:03:00 Test Item Value Reference Range Interpretation Comments Chloride Lvl (test code = Chloride Lvl) 98 95-109 [place] 480482-07-25 08:03:00 Test Item Value Reference Range Interpretation Comments CO2 (test code = CO2) 25 24-32 [place] 480482-07-25 08:03:00 Test Item Value Reference Range Interpretation Comments AGAP (test code = AGAP) 14.4 10.0-20.0 [place] 480482-07-25 08:03:00 Test Item Value Reference Range Interpretation Comments Calcium Lvl (test code = Calcium Lvl) 9.1 8.5-10.5 [place] 480482-07-25 08:03:00 Test Item Value Reference Range Interpretation Comments B/C Ratio (test code = B/C Ratio) 25 1 6-25 [place] 480482-07-25 08:03:00 Test Item Value Reference Range Interpretation Comments Total Protein (test code = Total 6.7 6.4-8.4 Protein) [place] 480482-07-25 08:03:00 Test Item Value Reference Range Interpretation Comments Albumin Lvl (test code = Albumin Lvl) 3.2 3.5-5.0 [place] 480482-07-25 08:03:00 Test Item Value Reference Range Interpretation Comments Globulin (test code = Globulin) 3.5 2.7-4.2 [facility] [id number] 08:03:00 Test Item Value Reference Range Interpretation Comments A/G Ratio (test code = A/G Ratio) 0.9 1 0.7-1.6 [place] [address]-07-25 08:03:00 Test Item Value Reference Range Interpretation Comments ALT (test code = ALT) 19 See_Comment [Auto mated message] The system which ge nerated this result transmit lavon reference range : <=65. The reference range was not used to interpr et this result as dionne l/abnormal. [facility] [id number] 08:03:00 Test Item Value Reference Range Interpretation Comments AST (test code = AST) 26 See_Comment [Auto mated message] The system which ge nerated this result transmit lavon reference range : <=37. The reference range was not used to interpr et this result as dionne l/abnormal. [facility] [id number] 08:03:00 Test Item Value Reference Range Interpretation Comments Alk Phos (test code = Alk Phos) 56 39-136 [place] 480482-07-25 08:03:00 Test Item Value Reference Range Interpretation Comments Bili Total (test code = Bili Total) 1.0 0.2-1.3 [place] 480482-07-25 08:03:00 Test Item Value Reference Range Interpretation Comments eGFR (test code = eGFR) 67 [place] 480482-07-25 08:03:00 Test Item Value Reference Range Interpretation Comments Magnesium Lvl (test code = Magnesium 1.9 1.8-2.4 Lvl) [place] 480482-07-25 08:03:00 Test Item Value Reference Range Interpretation Comments Procalcitonin Lvl (test no gt See_Comment [Au tomated message] code = Procalcitonin Lvl) e system which generated this result transmitted ref erence range: <=0.10. The reference range was not used to interpr et this result as normal/abnormal . [place] 480482-07-25 08:03:00 Test Item Value Reference Range Interpretation Comments LDH (test code = LDH) 354 98-192 [place] 325412-07-25 08:03:00 Test Item Value Reference Range Interpretation Comments WBC (test code = WBC) 7.5 3.7-10.4 [place] [address]-07-25 08:03:00 Test Item Value Reference Range Interpretation Comments RBC (test code = RBC) 3.44 4.20-5.40 [place] [address]-07-25 08:03:00 Test Item Value Reference Range Interpretation Comments Hgb (test code = Hgb) 8.3 12.0-16.0 [place] [address]-07-25 08:03:00 Test Item Value Reference Range Interpretation Comments Hct (test code = Hct) 26.2 36.0-48.0 [place] [address]-07-25 08:03:00 Test Item Value Reference Range Interpretation Comments MCV (test code = MCV) 76.1 80.0-98.0 [place] [address]-07-25 08:03:00 Test Item Value Reference Range Interpretation Comments MCH (test code = MCH) 24.0 pg 27.0-31.0 [place] 325412-07-25 08:03:00 Test Item Value Reference Range Interpretation Comments MCHC (test code = MCHC) 31.6 32.0-36.0 [place] 325412-07-25 08:03:00 Test Item Value Reference Range Interpretation Comments RDW (test code = RDW) 20.9 11.5-14.5 [place] 325412-07-25 08:03:00 Test Item Value Reference Range Interpretation Comments Platelet (test code = Platelet) 289 133-450 [facility] CampusNwtjawgHDCGKQJKFU9913-56-07 08:03:00 Test Item Value Reference Range Interpretation Comments MPV (test code = MPV) 7.5 7.4-10.4 [place] [address]-07-25 08:03:00 Test Item Value Reference Range Interpretation Comments Segs (test code = Segs) 94.0 45.0-75.0 [place] 325412-07-25 08:03:00 Test Item Value Reference Range Interpretation Comments Lymphocytes (test code = Lymphocytes) 4.3 20.0-40.0 [place] 325412-07-25 08:03:00 Test Item Value Reference Range Interpretation Comments Monocytes (test code = Monocytes) 1.6 2.0-12.0 [place] [address]-07-25 08:03:00 Test Item Value Reference Range Interpretation Comments Basophils (test code = 0.1 See_Comment [Aut omated message] The Basophils) system which ge nerated this result tra nsmitted reference range : <=1.0. The reference r hugo was not used to int erpret this result as normal/abnormal . [facility] CampusOxngtqeYMIDEVTLUX4040-26-81 08:03:00 Test Item Value Reference Range Interpretation Comments Neutrophils # (test code = Neutrophils 7.0 1.5-8.1 #) [place] 325412-07-25 08:03:00 Test Item Value Reference Range Interpretation Comments Lymphocytes # (test code = Lymphocytes 0.3 1.0-5.5 #) [place] [address]-07-25 08:03:00 Test Item Value Reference Range Interpretation Comments Monocytes # (test code 0.1 See_Comment [Aut omated message] The = Monocytes #) system which generated this result tra nsmitted reference range : <=0.8. The reference r hugo was not used to int erpret this result as normal/abnormal . [facility]OpcrdjcKXQSZBFXWO7002-52-89 08:03:00 Test Item Value Reference Range Interpretation Comments Microcyte (test code = 1+ *ABN*(06/13/22 Microcyte) 3:03 AM) [facility] [id number] 08:03:00 Test Item Value Reference Range Interpretation Comments HS Troponin I 1 Hr (test code = HS 50 Troponin I 1 Hr) [facility] [id number] 08:03:00 Test Item Value Reference Range Interpretation Comments HS Troponin I 0 to 1 See Note 5(06/13/22 Hour Delta (test code = 3:03 AM) HS Troponin I 0 to 1 Hour Delta) [facility]2022-07-25 08:03:00 Test Item Value Reference Range Interpretation Comments Glucose Lvl (test code = Glucose Lvl) 142 70-99 [facility]2022-07-25 08:03:00 Test Item Value Reference Range Interpretation Comments BUN (test code = BUN) 21 06-10 [facility]2022-07-25 08:03:00 Test Item Value Reference Range Interpretation Comments Creatinine Lvl (test code = Creatinine 0.84 0.50-1.40 Lvl) [facility]2022-07-25 08:03:00 Test Item Value Reference Range Interpretation Comments Sodium Lvl (test code = Sodium Lvl) 133 135-145 [facility]2022-07-25 08:03:00 Test Item Value Reference Range Interpretation Comments Potassium Lvl (test code = Potassium 4.4 3.5-5.1 Lvl) [facility]2022-07-25 08:03:00 Test Item Value Reference Range Interpretation Comments Chloride Lvl (test code = Chloride Lvl) 98 95-109 [facility]2022-07-25 08:03:00 Test Item Value Reference Range Interpretation Comments CO2 (test code = CO2) 24-32 [facility]2022-07-25 08:03:00 Test Item Value Reference Range Interpretation Comments AGAP (test code = AGAP) 14.4 10.0-20.0 [facility]2022-07-25 08:03:00 Test Item Value Reference Range Interpretation Comments Calcium Lvl (test code = Calcium Lvl) 9.1 8.5-10.5 [facility] [id number] 08:03:00 Test Item Value Reference Range Interpretation Comments B/C Ratio (test code = B/C Ratio) 25 1 6-25 [facility] [id number] 08:03:00 Test Item Value Reference Range Interpretation Comments Total Protein (test code = Total 6.7 6.4-8.4 Protein) [facility] [id number] 08:03:00 Test Item Value Reference Range Interpretation Comments Albumin Lvl (test code = Albumin Lvl) 3.2 3.5-5.0 [facility] [id number] 08:03:00 Test Item Value Reference Range Interpretation Comments Globulin (test code = Globulin) 3.5 2.7-4.2 [facility] [id number] 08:03:00 Test Item Value Reference Range Interpretation Comments A/G Ratio (test code = A/G Ratio) 0.9 1 0.7-1.6 [facility] [id number] 08:03:00 Test Item Value Reference Range Interpretation Comments ALT (test code = ALT) 19 See_Comment [Auto mated message] The system which ge nerated this result transmit lavon reference range : <=65. The reference range was not used to interpr et this result as dionne l/abnormal. [facility] [id number] 08:03:00 Test Item Value Reference Range Interpretation Comments AST (test code = AST) 26 See_Comment [Auto mated message] The system which ge nerated this result transmit lavon reference range : <=37. The reference range was not used to interpr et this result as dionne l/abnormal. [facility] [employer] [id number] 08:03:00 Test Item Value Reference Range Interpretation Comments Alk Phos (test code = Alk Phos) 56 39-136 [facility] [id number] 08:03:00 Test Item Value Reference Range Interpretation Comments Bili Total (test code = Bili Total) 1.0 0.2-1.3 [facility] [id number] 08:03:00 Test Item Value Reference Range Interpretation Comments eGFR (test code = eGFR) 67 [facility]2022-07-25 08:03:00 Test Item Value Reference Range Interpretation Comments Magnesium Lvl (test code = Magnesium 1.9 1.8-2.4 Lvl) [place] 480482-07-25 08:03:00 Test Item Value Reference Range Interpretation Comments Procalcitonin Lvl (test no gt See_Comment [Au tomated message] code = Procalcitonin Lvl) e system which generated this result transmitted ref erence range: <=0.10. The reference range was not used to interpr et this result as normal/abnormal . [place] 480482-07-25 08:03:00 Test Item Value Reference Range Interpretation Comments LDH (test code = LDH) 354 98-192 [place] 325412-07-25 08:03:00 Test Item Value Reference Range Interpretation Comments WBC (test code = WBC) 7.5 3.7-10.4 [place] 325412-07-25 08:03:00 Test Item Value Reference Range Interpretation Comments RBC (test code = RBC) 3.44 4.20-5.40 [place] 325412-07-25 08:03:00 Test Item Value Reference Range Interpretation Comments Hgb (test code = Hgb) 8.3 12.0-16.0 [place] [address]-07-25 08:03:00 Test Item Value Reference Range Interpretation Comments Hct (test code = Hct) 26.2 36.0-48.0 [place] 325412-07-25 08:03:00 Test Item Value Reference Range Interpretation Comments MCV (test code = MCV) 76.1 80.0-98.0 [place] [address]-07-25 08:03:00 Test Item Value Reference Range Interpretation Comments MCH (test code = MCH) 24.0 pg 27.0-31.0 [place] [address]-07-25 08:03:00 Test Item Value Reference Range Interpretation Comments MCHC (test code = MCHC) 31.6 32.0-36.0 [place] [address]-07-25 08:03:00 Test Item Value Reference Range Interpretation Comments RDW (test code = RDW) 20.9 11.5-14.5 [place] 325412-07-25 08:03:00 Test Item Value Reference Range Interpretation Comments Platelet (test code = Platelet) 289 133-450 [facility] CampusZeewoalGCZWAJZCFK1341-44-38 08:03:00 Test Item Value Reference Range Interpretation Comments MPV (test code = MPV) 7.5 7.4-10.4 [place] 325412-07-25 08:03:00 Test Item Value Reference Range Interpretation Comments Segs (test code = Segs) 94.0 45.0-75.0 [place] 325412-07-25 08:03:00 Test Item Value Reference Range Interpretation Comments Lymphocytes (test code = Lymphocytes) 4.3 20.0-40.0 [place] 325412-07-25 08:03:00 Test Item Value Reference Range Interpretation Comments Monocytes (test code = Monocytes) 1.6 2.0-12.0 [place] 325412-07-25 08:03:00 Test Item Value Reference Range Interpretation Comments Basophils (test code = 0.1 See_Comment [Aut omated message] The Basophils) system which ge nerated this result tra nsmitted reference range : <=1.0. The reference r hugo was not used to int erpret this result as normal/abnormal . [facility] [id number] 08:03:00 Test Item Value Reference Range Interpretation Comments Neutrophils # (test code = Neutrophils 7.0 1.5-8.1 #) [place] 325412-07-25 08:03:00 Test Item Value Reference Range Interpretation Comments Lymphocytes # (test code = Lymphocytes 0.3 1.0-5.5 #) [place] 325412-07-25 08:03:00 Test Item Value Reference Range Interpretation Comments Monocytes # (test code 0.1 See_Comment [Aut omated message] The = Monocytes #) system which generated this result tra nsmitted reference range : <=0.8. The reference r hugo was not used to int erpret this result as normal/abnormal . [place] 325412-07-25 08:03:00 Test Item Value Reference Range Interpretation Comments Microcyte (test code = 1+ *ABN*(06/13/22 Microcyte) 3:03 AM) [facility] [id number] 08:03:00 Test Item Value Reference Range Interpretation Comments HS Troponin I 1 Hr (test code = HS 50 Troponin I 1 Hr) [facility]ACT[facility] [id number] 08:03:00 Test Item Value Reference Range Interpretation Comments HS Troponin I 0 to 1 See Note 5(06/13/22 Hour Delta (test code = 3:03 AM) HS Troponin I 0 to 1 Hour Delta) [facility] [employer] [id number] 08:03:00 Test Item Value Reference Range Interpretation Comments Glucose Lvl (test code = Glucose Lvl) 142 70-99 [facility] [employer] [id number] 08:03:00 Test Item Value Reference Range Interpretation Comments BUN (test code = BUN) 21 7- [facility] [employer] [id number] 08:03:00 Test Item Value Reference Range Interpretation Comments Creatinine Lvl (test code = Creatinine 0.84 0.50-1.40 Lvl) [facility] [employer] [id number] 08:03:00 Test Item Value Reference Range Interpretation Comments Sodium Lvl (test code = Sodium Lvl) 133 135-145 [facility] [employer] [id number] 08:03:00 Test Item Value Reference Range Interpretation Comments Potassium Lvl (test code = Potassium 4.4 3.5-5.1 Lvl) [facility] [employer] [id number] 08:03:00 Test Item Value Reference Range Interpretation Comments Chloride Lvl (test code = Chloride Lvl) 98 95-109 [facility] [employer] [id number] 08:03:00 Test Item Value Reference Range Interpretation Comments CO2 (test code = CO2) 25 24-32 [facility] [employer] [id number] 08:03:00 Test Item Value Reference Range Interpretation Comments AGAP (test code = AGAP) 14.4 10.0-20.0 [facility] [employer] [id number] 08:03:00 Test Item Value Reference Range Interpretation Comments Calcium Lvl (test code = Calcium Lvl) 9.1 8.5-10.5 [facility] [employer] [id number] 08:03:00 Test Item Value Reference Range Interpretation Comments B/C Ratio (test code = B/C Ratio) 25 1 6-25 [place] 480482-07-25 08:03:00 Test Item Value Reference Range Interpretation Comments Total Protein (test code = Total 6.7 6.4-8.4 Protein) [place] 480482-07-25 08:03:00 Test Item Value Reference Range Interpretation Comments Albumin Lvl (test code = Albumin Lvl) 3.2 3.5-5.0 [place] [address]-07-25 08:03:00 Test Item Value Reference Range Interpretation Comments Globulin (test code = Globulin) 3.5 2.7-4.2 [place] [address]-07-25 08:03:00 Test Item Value Reference Range Interpretation Comments A/G Ratio (test code = A/G Ratio) 0.9 1 0.7-1.6 [place] 24489-07-25 08:03:00 Test Item Value Reference Range Interpretation Comments ALT (test code = ALT) 19 See_Comment [Auto mated message] The system which ge nerated this result transmit lavon reference range : <=65. The reference range was not used to interpr et this result as dionne l/abnormal. [place] 480482-07-25 08:03:00 Test Item Value Reference Range Interpretation Comments AST (test code = AST) 26 See_Comment [Auto mated message] The system which ge nerated this result transmit lavon reference range : <=37. The reference range was not used to interpr et this result as dionne l/abnormal. [place] 480482-07-25 08:03:00 Test Item Value Reference Range Interpretation Comments Alk Phos (test code = Alk Phos) 56 39-136 [facility] [id number] 08:03:00 Test Item Value Reference Range Interpretation Comments Bili Total (test code = Bili Total) 1.0 0.2-1.3 [facility] [id number] 08:03:00 Test Item Value Reference Range Interpretation Comments eGFR (test code = eGFR) 67 [place] 480482-07-25 08:03:00 Test Item Value Reference Range Interpretation Comments Magnesium Lvl (test code = Magnesium 1.9 1.8-2.4 Lvl) [place] 480482-07-25 08:03:00 Test Item Value Reference Range Interpretation Comments Procalcitonin Lvl (test no gt See_Comment [Au tomated message] code = Procalcitonin Lvl) Th e system which generated this result transmitted ref erence range: <=0.10. The reference range was not used to interpr et this result as normal/abnormal . [facility]2022-07-25 08:03:00 Test Item Value Reference Range Interpretation Comments LDH (test code = LDH) 354 98-192 [facility] CampusYkjkgjbNLNYEFZCRR7974-36-09 08:03:00 Test Item Value Reference Range Interpretation Comments WBC (test code = WBC) 7.5 3.7-10.4 [facility] CampusBxhmnlnLGPXBCPCYF4576-26-01 08:03:00 Test Item Value Reference Range Interpretation Comments RBC (test code = RBC) 3.44 4.20-5.40 [facility] CampusYkgadnrEXUTIUOEPM3446-93-14 08:03:00 Test Item Value Reference Range Interpretation Comments Hgb (test code = Hgb) 8.3 12.0-16.0 [facility] CampusYdikfzhPBMNMAQPIT1686-48-18 08:03:00 Test Item Value Reference Range Interpretation Comments Hct (test code = Hct) 26.2 36.0-48.0 [facility] CampusEhrbrbvXXIYLMFZET3353-77-08 08:03:00 Test Item Value Reference Range Interpretation Comments MCV (test code = MCV) 76.1 80.0-98.0 [facility] CampusCtddbtaEKVENXGXJO2144-43-21 08:03:00 Test Item Value Reference Range Interpretation Comments MCH (test code = MCH) 24.0 pg 27.0-31.0 [facility] CampusWpobztbEVSDRBONQX8801-09-78 08:03:00 Test Item Value Reference Range Interpretation Comments MCHC (test code = MCHC) 31.6 32.0-36.0 [facility] CampusOeojjycLUQABPFYNZ1615-19-58 08:03:00 Test Item Value Reference Range Interpretation Comments RDW (test code = RDW) 20.9 11.5-14.5 [facility] CampusHzmnojbTSVUJOKIYM7503-76-76 08:03:00 Test Item Value Reference Range Interpretation Comments Platelet (test code = Platelet) 289 133-450 [facility] CampusWrelwnmUGHVYEFPBC5146-42-56 08:03:00 Test Item Value Reference Range Interpretation Comments MPV (test code = MPV) 7.5 7.4-10.4 [place] 325412-07-25 08:03:00 Test Item Value Reference Range Interpretation Comments Segs (test code = Segs) 94.0 45.0-75.0 [place] 325412-07-25 08:03:00 Test Item Value Reference Range Interpretation Comments Lymphocytes (test code = Lymphocytes) 4.3 20.0-40.0 [place] 325412-07-25 08:03:00 Test Item Value Reference Range Interpretation Comments Monocytes (test code = Monocytes) 1.6 2.0-12.0 [place] 325412-07-25 08:03:00 Test Item Value Reference Range Interpretation Comments Basophils (test code = 0.1 See_Comment [Aut omated message] The Basophils) system which ge nerated this result tra nsmitted reference range : <=1.0. The reference r hugo was not used to int erpret this result as normal/abnormal . [facility] CampusMovpmjjKYNTRAVAGB6486-14-59 08:03:00 Test Item Value Reference Range Interpretation Comments Neutrophils # (test code = Neutrophils 7.0 1.5-8.1 #) [facility] CampusDesdwwpXBXOFGABHM5235-94-03 08:03:00 Test Item Value Reference Range Interpretation Comments Lymphocytes # (test code = Lymphocytes 0.3 1.0-5.5 #) [facility] CampusUolcakjETESFYCRFT1875-03-18 08:03:00 Test Item Value Reference Range Interpretation Comments Monocytes # (test code 0.1 See_Comment [Aut omated message] The = Monocytes #) system which generated this result tra nsmitted reference range : <=0.8. The reference r hugo was not used to int erpret this result as normal/abnormal . [facility] CampusRgwnszpKPZEFDOKNK9820-51-23 08:03:00 Test Item Value Reference Range Interpretation Comments Microcyte (test code = 1+ *ABN*(06/13/22 Microcyte) 3:03 AM) [facility] [id number] 08:03:00 Test Item Value Reference Range Interpretation Comments HS Troponin I 1 Hr (test code = HS 50 Troponin I 1 Hr) [facility] [id number] 08:03:00 Test Item Value Reference Range Interpretation Comments HS Troponin I 0 to 1 See Note 5(06/13/22 Hour Delta (test code = 3:03 AM) HS Troponin I 0 to 1 Hour Delta) [place] 480482-07-25 08:03:00 Test Item Value Reference Range Interpretation Comments Glucose Lvl (test code = Glucose Lvl) 142 70-99 [place] 480482-07-25 08:03:00 Test Item Value Reference Range Interpretation Comments BUN (test code = BUN) 21 7-22 [place] 480482-07-25 08:03:00 Test Item Value Reference Range Interpretation Comments Creatinine Lvl (test code = Creatinine 0.84 0.50-1.40 Lvl) [place] 480482-07-25 08:03:00 Test Item Value Reference Range Interpretation Comments Sodium Lvl (test code = Sodium Lvl) 133 135-145 [place] 480482-07-25 08:03:00 Test Item Value Reference Range Interpretation Comments Potassium Lvl (test code = Potassium 4.4 3.5-5.1 Lvl) [place] 480482-07-25 08:03:00 Test Item Value Reference Range Interpretation Comments Chloride Lvl (test code = Chloride Lvl) 98 95-109 [place] 480482-07-25 08:03:00 Test Item Value Reference Range Interpretation Comments CO2 (test code = CO2) 25 24-32 [place] 480482-07-25 08:03:00 Test Item Value Reference Range Interpretation Comments AGAP (test code = AGAP) 14.4 10.0-20.0 [place] 480482-07-25 08:03:00 Test Item Value Reference Range Interpretation Comments Calcium Lvl (test code = Calcium Lvl) 9.1 8.5-10.5 [place] 480482-07-25 08:03:00 Test Item Value Reference Range Interpretation Comments B/C Ratio (test code = B/C Ratio) 25 1 6-25 [place] 480482-07-25 08:03:00 Test Item Value Reference Range Interpretation Comments Total Protein (test code = Total 6.7 6.4-8.4 Protein) [place] 480482-07-25 08:03:00 Test Item Value Reference Range Interpretation Comments Albumin Lvl (test code = Albumin Lvl) 3.2 3.5-5.0 [facility] [id number] 08:03:00 Test Item Value Reference Range Interpretation Comments Globulin (test code = Globulin) 3.5 2.7-4.2 [facility] [id number] 08:03:00 Test Item Value Reference Range Interpretation Comments A/G Ratio (test code = A/G Ratio) 0.9 1 0.7-1.6 [facility] [id number] 08:03:00 Test Item Value Reference Range Interpretation Comments ALT (test code = ALT) 19 See_Comment [Auto mated message] The system which ge nerated this result transmit lavon reference range : <=65. The reference range was not used to interpr et this result as dionne l/abnormal. [facility] [employer] [id number] 08:03:00 Test Item Value Reference Range Interpretation Comments AST (test code = AST) 26 See_Comment [Auto mated message] The system which ge nerated this result transmit lavon reference range : <=37. The reference range was not used to interpr et this result as dionne l/abnormal. [facility] [employer] [id number] 08:03:00 Test Item Value Reference Range Interpretation Comments Alk Phos (test code = Alk Phos) 56 39-136 [facility] [employer] [id number] 08:03:00 Test Item Value Reference Range Interpretation Comments Bili Total (test code = Bili Total) 1.0 0.2-1.3 [facility] [employer] [id number] 08:03:00 Test Item Value Reference Range Interpretation Comments eGFR (test code = eGFR) 67 [facility] [employer] [id number] 08:03:00 Test Item Value Reference Range Interpretation Comments Magnesium Lvl (test code = Magnesium 1.9 1.8-2.4 Lvl) [facility] [id number] 08:03:00 Test Item Value Reference Range Interpretation Comments Procalcitonin Lvl (test no gt See_Comment [Au tomated message] code = Procalcitonin Lvl) Th e system which generated this result transmitted ref erence range: <=0.10. The reference range was not used to interpr et this result as normal/abnormal . [facility] [employer] [id number] 08:03:00 Test Item Value Reference Range Interpretation Comments LDH (test code = LDH) 354 98-192 [facility] CampusXnxnrfkHFULZLRAXG6241-88-94 08:03:00 Test Item Value Reference Range Interpretation Comments WBC (test code = WBC) 7.5 3.7-10.4 [facility] CampusVlkbqvjUMEZARZISK1341-63-94 08:03:00 Test Item Value Reference Range Interpretation Comments RBC (test code = RBC) 3.44 4.20-5.40 [facility] CampusRjnamcxLHSMXZQMWV7782-73-69 08:03:00 Test Item Value Reference Range Interpretation Comments Hgb (test code = Hgb) 8.3 12.0-16.0 [place] 325412-07-25 08:03:00 Test Item Value Reference Range Interpretation Comments Hct (test code = Hct) 26.2 36.0-48.0 [facility] CampusKqgopzfIRGCFKMUYE6365-47-44 08:03:00 Test Item Value Reference Range Interpretation Comments MCV (test code = MCV) 76.1 80.0-98.0 [place] 325412-07-25 08:03:00 Test Item Value Reference Range Interpretation Comments MCH (test code = MCH) 24.0 pg 27.0-31.0 [facility] CampusQkjtdkwALVESETLIY3546-85-65 08:03:00 Test Item Value Reference Range Interpretation Comments MCHC (test code = MCHC) 31.6 32.0-36.0 [facility] CampusSeivykpELHXWNFKFT7668-76-87 08:03:00 Test Item Value Reference Range Interpretation Comments RDW (test code = RDW) 20.9 11.5-14.5 [facility] CampusIxqtwsiOEMXNFXJXF1490-54-13 08:03:00 Test Item Value Reference Range Interpretation Comments Platelet (test code = Platelet) 289 133-450 [facility] CampusAwbmeloSDGNKXGLXM4750-23-03 08:03:00 Test Item Value Reference Range Interpretation Comments MPV (test code = MPV) 7.5 7.4-10.4 [place] 325412-07-25 08:03:00 Test Item Value Reference Range Interpretation Comments Segs (test code = Segs) 94.0 45.0-75.0 [place] 325412-07-25 08:03:00 Test Item Value Reference Range Interpretation Comments Lymphocytes (test code = Lymphocytes) 4.3 20.0-40.0 [facility] HospitalUgyxmbyWIUUVYDWIA0918-84-70 08:03:00 Test Item Value Reference Range Interpretation Comments Monocytes (test code = Monocytes) 1.6 2.0-12.0 [facility] HospitalCskrfylFHQLOBJTUC7246-36-67 08:03:00 Test Item Value Reference Range Interpretation Comments Basophils (test code = 0.1 See_Comment [Aut omated message] The Basophils) system which ge nerated this result tra nsmitted reference range : <=1.0. The reference r hugo was not used to int erpret this result as normal/abnormal . [facility] CenterLhfckyqLXZVIYZTHP3473-14-44 08:03:00 Test Item Value Reference Range Interpretation Comments Neutrophils # (test code = Neutrophils 7.0 1.5-8.1 #) [facility]VojygnpHQRTELWRON7964-67-98 08:03:00 Test Item Value Reference Range Interpretation Comments Lymphocytes # (test code = Lymphocytes 0.3 1.0-5.5 #) [facility] CenterAbeaakfLFAUCKPCDM1616-86-77 08:03:00 Test Item Value Reference Range Interpretation Comments Monocytes # (test code 0.1 See_Comment [Aut omated message] The = Monocytes #) system which generated this result tra nsmitted reference range : <=0.8. The reference r hugo was not used to int erpret this result as normal/abnormal . [facility] CenterLqrtigfRHFGVMQLOR4806-50-03 08:03:00 Test Item Value Reference Range Interpretation Comments Microcyte (test code = 1+ *ABN*(06/13/22 Microcyte) 3:03 AM) [facility] 08:03:00 Test Item Value Reference Range Interpretation Comments HS Troponin I 1 Hr (test code = HS 50 Troponin I 1 Hr) [facility] 08:03:00 Test Item Value Reference Range Interpretation Comments HS Troponin I 0 to 1 See Note 5(06/13/22 Hour Delta (test code = 3:03 AM) HS Troponin I 0 to 1 Hour Delta) [facility] [employer]2022-07-25 08:03:00 Test Item Value Reference Range Interpretation Comments Glucose Lvl (test code = Glucose Lvl) 142 70-99 [facility] [employer]2022-07-25 08:03:00 Test Item Value Reference Range Interpretation Comments BUN (test code = BUN) 21 7-22 [facility]2022-07-25 08:03:00 Test Item Value Reference Range Interpretation Comments Creatinine Lvl (test code = Creatinine 0.84 0.50-1.40 Lvl) [facility]2022-07-25 08:03:00 Test Item Value Reference Range Interpretation Comments Sodium Lvl (test code = Sodium Lvl) 133 135-145 [place] 480482-07-25 08:03:00 Test Item Value Reference Range Interpretation Comments Potassium Lvl (test code = Potassium 4.4 3.5-5.1 Lvl) [facility]2022-07-25 08:03:00 Test Item Value Reference Range Interpretation Comments Chloride Lvl (test code = Chloride Lvl) 98 95-109 [facility]2022-07-25 08:03:00 Test Item Value Reference Range Interpretation Comments CO2 (test code = CO2) 24-32 [place] 480482-07-25 08:03:00 Test Item Value Reference Range Interpretation Comments AGAP (test code = AGAP) 14.4 10.0-20.0 [place] 480482-07-25 08:03:00 Test Item Value Reference Range Interpretation Comments Calcium Lvl (test code = Calcium Lvl) 9.1 8.5-10.5 [place] 480482-07-25 08:03:00 Test Item Value Reference Range Interpretation Comments B/C Ratio (test code = B/C Ratio) 25 1 6-25 [place] 480482-07-25 08:03:00 Test Item Value Reference Range Interpretation Comments Total Protein (test code = Total 6.7 6.4-8.4 Protein) [place] 480482-07-25 08:03:00 Test Item Value Reference Range Interpretation Comments Albumin Lvl (test code = Albumin Lvl) 3.2 3.5-5.0 [place] 480482-07-25 08:03:00 Test Item Value Reference Range Interpretation Comments Globulin (test code = Globulin) 3.5 2.7-4.2 [place] 480482-07-25 08:03:00 Test Item Value Reference Range Interpretation Comments A/G Ratio (test code = A/G Ratio) 0.9 1 0.7-1.6 [facility] [employer]2022-07-25 08:03:00 Test Item Value Reference Range Interpretation Comments ALT (test code = ALT) 19 See_Comment [Auto mated message] The system which ge nerated this result transmit lavon reference range : <=65. The reference range was not used to interpr et this result as dionne l/abnormal. [facility] [employer]2022-07-25 08:03:00 Test Item Value Reference Range Interpretation Comments AST (test code = AST) 26 See_Comment [Auto mated message] The system which ge nerated this result transmit lavon reference range : <=37. The reference range was not used to interpr et this result as dionne l/abnormal. [facility] [employer] [id number] 08:03:00 Test Item Value Reference Range Interpretation Comments Alk Phos (test code = Alk Phos) 56 39-136 [facility] [employer] [id number] 08:03:00 Test Item Value Reference Range Interpretation Comments Bili Total (test code = Bili Total) 1.0 0.2-1.3 [facility] [employer]2022-07-25 08:03:00 Test Item Value Reference Range Interpretation Comments eGFR (test code = eGFR) 67 [facility] [employer]2022-07-25 08:03:00 Test Item Value Reference Range Interpretation Comments Magnesium Lvl (test code = Magnesium 1.9 1.8-2.4 Lvl) [facility] [employer] [id number] 08:03:00 Test Item Value Reference Range Interpretation Comments Procalcitonin Lvl (test no gt See_Comment [Au tomated message] code = Procalcitonin Lvl) Th e system which generated this result transmitted ref erence range: <=0.10. The reference range was not used to interpr et this result as normal/abnormal . [facility] [employer]2022-07-25 08:03:00 Test Item Value Reference Range Interpretation Comments LDH (test code = LDH) 354 98-192 [facility] CenterLkmxqfcVRNWFGLSKY6872-02-65 08:03:00 Test Item Value Reference Range Interpretation Comments WBC (test code = WBC) 7.5 3.7-10.4 [facility] MjuolbvFHYZTGZKCT6110-00-25 08:03:00 Test Item Value Reference Range Interpretation Comments RBC (test code = RBC) 3.44 4.20-5.40 [facility] CampusSaypvsjXKFWQQGTSE6158-33-39 08:03:00 Test Item Value Reference Range Interpretation Comments Hgb (test code = Hgb) 8.3 12.0-16.0 [place] 325412-07-25 08:03:00 Test Item Value Reference Range Interpretation Comments Hct (test code = Hct) 26.2 36.0-48.0 [facility] CampusBhexefmFPMPLMUJSE2528-98-50 08:03:00 Test Item Value Reference Range Interpretation Comments MCV (test code = MCV) 76.1 80.0-98.0 [facility] CampusHxiiwgnNSBKWCOKDW9005-36-31 08:03:00 Test Item Value Reference Range Interpretation Comments MCH (test code = MCH) 24.0 pg 27.0-31.0 [facility] CampusFehkoqpTUQUZRIRLC3622-78-36 08:03:00 Test Item Value Reference Range Interpretation Comments MCHC (test code = MCHC) 31.6 32.0-36.0 [facility] CampusIvzpzaaAOTYOFHGRF9012-14-04 08:03:00 Test Item Value Reference Range Interpretation Comments RDW (test code = RDW) 20.9 11.5-14.5 [facility] CampusQntiqfnQSKFKPTDTG5603-82-81 08:03:00 Test Item Value Reference Range Interpretation Comments Platelet (test code = Platelet) 289 133-450 [facility] CampusPgwyijiZLRTHUWRLC4151-60-59 08:03:00 Test Item Value Reference Range Interpretation Comments MPV (test code = MPV) 7.5 7.4-10.4 [place] 325412-07-25 08:03:00 Test Item Value Reference Range Interpretation Comments Segs (test code = Segs) 94.0 45.0-75.0 [place] 325412-07-25 08:03:00 Test Item Value Reference Range Interpretation Comments Lymphocytes (test code = Lymphocytes) 4.3 20.0-40.0 [place] 325412-07-25 08:03:00 Test Item Value Reference Range Interpretation Comments Monocytes (test code = Monocytes) 1.6 2.0-12.0 [place] 325412-07-25 08:03:00 Test Item Value Reference Range Interpretation Comments Basophils (test code = 0.1 See_Comment [Aut omated message] The Basophils) system which ge nerated this result tra nsmitted reference range : <=1.0. The reference r hugo was not used to int erpret this result as normal/abnormal . [facility] CenterHeaompeASJMOWSGGM5976-40-73 08:03:00 Test Item Value Reference Range Interpretation Comments Neutrophils # (test code = Neutrophils 7.0 1.5-8.1 #) [facility] CenterSvemvmvFWFVFQKMQC2100-06-10 08:03:00 Test Item Value Reference Range Interpretation Comments Lymphocytes # (test code = Lymphocytes 0.3 1.0-5.5 #) [facility] HospitalXjfjjgrTCHODJECJG6935-62-95 08:03:00 Test Item Value Reference Range Interpretation Comments Monocytes # (test code 0.1 See_Comment [Aut omated message] The = Monocytes #) system which generated this result tra nsmitted reference range : <=0.8. The reference r hugo was not used to int erpret this result as normal/abnormal . [facility] HospitalMkkdnmlSOBMBQJAVQ4786-81-69 08:03:00 Test Item Value Reference Range Interpretation Comments Microcyte (test code = 1+ *ABN*(06/13/22 Microcyte) 3:03 AM) [facility] SLNNXVO3385-77-41 08:03:00 Test Item Value Reference Range Interpretation Comments HS Troponin I 1 Hr (test code = HS 50 Troponin I 1 Hr) [facility] IUDWLNU7731-01-57 08:03:00 Test Item Value Reference Range Interpretation Comments HS Troponin I 0 to 1 See Note 5(06/13/22 Hour Delta (test code = 3:03 AM) HS Troponin I 0 to 1 Hour Delta) [facility] [employer]2022-07-25 08:03:00 Test Item Value Reference Range Interpretation Comments Glucose Lvl (test code = Glucose Lvl) 142 70-99 [facility] [employer]2022-07-25 08:03:00 Test Item Value Reference Range Interpretation Comments BUN (test code = BUN) 21 06-10 [facility] CenterS[facility] Egil KvalebergYYYLV3170-29-23 08:03:00 Test Item Value Reference Range Interpretation Comments Creatinine Lvl (test code = Creatinine 0.84 0.50-1.40 Lvl) [facility] Egil KvalebergRWTDQ8914-70-57 08:03:00 Test Item Value Reference Range Interpretation Comments Sodium Lvl (test code = Sodium Lvl) 133 135-145 [facility]2022-07-25 08:03:00 Test Item Value Reference Range Interpretation Comments Potassium Lvl (test code = Potassium 4.4 3.5-5.1 Lvl) [facility]2022-07-25 08:03:00 Test Item Value Reference Range Interpretation Comments Chloride Lvl (test code = Chloride Lvl) 98 95-109 [place] 480482-07-25 08:03:00 Test Item Value Reference Range Interpretation Comments CO2 (test code = CO2) 25 24-32 [place] 480482-07-25 08:03:00 Test Item Value Reference Range Interpretation Comments AGAP (test code = AGAP) 14.4 10.0-20.0 [place] 480482-07-25 08:03:00 Test Item Value Reference Range Interpretation Comments Calcium Lvl (test code = Calcium Lvl) 9.1 8.5-10.5 [place] 480482-07-25 08:03:00 Test Item Value Reference Range Interpretation Comments B/C Ratio (test code = B/C Ratio) 25 1 6-25 [place] 480482-07-25 08:03:00 Test Item Value Reference Range Interpretation Comments Total Protein (test code = Total 6.7 6.4-8.4 Protein) [facility]2022-07-25 08:03:00 Test Item Value Reference Range Interpretation Comments Albumin Lvl (test code = Albumin Lvl) 3.2 3.5-5.0 [place] 480482-07-25 08:03:00 Test Item Value Reference Range Interpretation Comments Globulin (test code = Globulin) 3.5 2.7-4.2 [place] 480482-07-25 08:03:00 Test Item Value Reference Range Interpretation Comments A/G Ratio (test code = A/G Ratio) 0.9 1 0.7-1.6 [place] 480482-07-25 08:03:00 Test Item Value Reference Range Interpretation Comments ALT (test code = ALT) 19 See_Comment [Auto mated message] The system which ge nerated this result transmit lavon reference range : <=65. The reference range was not used to interpr et this result as dionne l/abnormal. [facility] [id number] 08:03:00 Test Item Value Reference Range Interpretation Comments AST (test code = AST) 26 See_Comment [Auto mated message] The system which ge nerated this result transmit lavon reference range : <=37. The reference range was not used to interpr et this result as dionne l/abnormal. [facility] [facility] [id number] 08:03:00 Test Item Value Reference Range Interpretation Comments Alk Phos (test code = Alk Phos) 56 39-136 [facility] [employer] [id number] 08:03:00 Test Item Value Reference Range Interpretation Comments Bili Total (test code = Bili Total) 1.0 0.2-1.3 [facility] [employer] [id number] 08:03:00 Test Item Value Reference Range Interpretation Comments eGFR (test code = eGFR) 67 [facility] [id number] 08:03:00 Test Item Value Reference Range Interpretation Comments Magnesium Lvl (test code = Magnesium 1.9 1.8-2.4 Lvl) [facility] [id number] 08:03:00 Test Item Value Reference Range Interpretation Comments Procalcitonin Lvl (test no gt See_Comment [Au tomated message] code = Procalcitonin Lvl) Th e system which generated this result transmitted ref erence range: <=0.10. The reference range was not used to interpr et this result as normal/abnormal . [facility] [id number] 08:03:00 Test Item Value Reference Range Interpretation Comments LDH (test code = LDH) 354 98-192 [facility]FpffygpPWSMHDGXJA9198-43-84 08:03:00 Test Item Value Reference Range Interpretation Comments WBC (test code = WBC) 7.5 3.7-10.4 [facility] CenterMkhqhxiOSLHWXYXXZ4798-94-68 08:03:00 Test Item Value Reference Range Interpretation Comments RBC (test code = RBC) 3.44 4.20-5.40 [facility] HospitalUtjmalxYLUXLAGUKO1390-47-69 08:03:00 Test Item Value Reference Range Interpretation Comments Hgb (test code = Hgb) 8.3 12.0-16.0 [facility] CenterSahlfypDPEZRBTDZN9264-10-09 08:03:00 Test Item Value Reference Range Interpretation Comments Hct (test code = Hct) 26.2 36.0-48.0 [place] 325412-07-25 08:03:00 Test Item Value Reference Range Interpretation Comments MCV (test code = MCV) 76.1 80.0-98.0 [place] 325412-07-25 08:03:00 Test Item Value Reference Range Interpretation Comments MCH (test code = MCH) 24.0 pg 27.0-31.0 [place] 325412-07-25 08:03:00 Test Item Value Reference Range Interpretation Comments MCHC (test code = MCHC) 31.6 32.0-36.0 [place] 325412-07-25 08:03:00 Test Item Value Reference Range Interpretation Comments RDW (test code = RDW) 20.9 11.5-14.5 [place] [address]-07-25 08:03:00 Test Item Value Reference Range Interpretation Comments Platelet (test code = Platelet) 289 133-450 [place] 325412-07-25 08:03:00 Test Item Value Reference Range Interpretation Comments MPV (test code = MPV) 7.5 7.4-10.4 [place] 325412-07-25 08:03:00 Test Item Value Reference Range Interpretation Comments Segs (test code = Segs) 94.0 45.0-75.0 [place] 325412-07-25 08:03:00 Test Item Value Reference Range Interpretation Comments Lymphocytes (test code = Lymphocytes) 4.3 20.0-40.0 [place] 325412-07-25 08:03:00 Test Item Value Reference Range Interpretation Comments Monocytes (test code = Monocytes) 1.6 2.0-12.0 [place] [address]-07-25 08:03:00 Test Item Value Reference Range Interpretation Comments Basophils (test code = 0.1 See_Comment [Aut omated message] The Basophils) system which ge nerated this result tra nsmitted reference range : <=1.0. The reference r hugo was not used to int erpret this result as normal/abnormal . [place] 325412-07-25 08:03:00 Test Item Value Reference Range Interpretation Comments Neutrophils # (test code = Neutrophils 7.0 1.5-8.1 #) [facility] [id number] 08:03:00 Test Item Value Reference Range Interpretation Comments Lymphocytes # (test code = Lymphocytes 0.3 1.0-5.5 #) [id number] 08:03:00 Test Item Value Reference Range Interpretation Comments Monocytes # (test code 0.1 See_Comment [Aut omated message] The = Monocytes #) system which generated this result tra nsmitted reference range : <=0.8. The reference r hugo was not used to int erpret this result as normal/abnormal . [facility] HospitalUgzxzdiROJKYSUCKS8911-69-77 08:03:00 Test Item Value Reference Range Interpretation Comments Microcyte (test code = 1+ *ABN*(06/13/22 Microcyte) 3:03 AM) [facility] HospitalM[facility] Spex [id number] 08:03:00 Test Item Value Reference Range Interpretation Comments HS Troponin I 1 Hr (test code = HS 50 Troponin I 1 Hr) [facility] [id number] 08:03:00 Test Item Value Reference Range Interpretation Comments HS Troponin I 0 to 1 See Note 5(06/13/22 Hour Delta (test code = 3:03 AM) HS Troponin I 0 to 1 Hour Delta) [facility] Egil [id number] 08:03:00 Test Item Value Reference Range Interpretation Comments Glucose Lvl (test code = Glucose Lvl) 142 70-99 [facility] [id number] 08:03:00 Test Item Value Reference Range Interpretation Comments BUN (test code = BUN) 21 - [facility] Egil KvalebergXUQLX3163-14-01 08:03:00 Test Item Value Reference Range Interpretation Comments Creatinine Lvl (test code = Creatinine 0.84 0.50-1.40 Lvl) [facility] [id number] 08:03:00 Test Item Value Reference Range Interpretation Comments Sodium Lvl (test code = Sodium Lvl) 133 135-145 [facility] [id number] 08:03:00 Test Item Value Reference Range Interpretation Comments Potassium Lvl (test code = Potassium 4.4 3.5-5.1 Lvl) [facility] [id number] 08:03:00 Test Item Value Reference Range Interpretation Comments Chloride Lvl (test code = Chloride Lvl) 98 95-109 [facility]2022-07-25 08:03:00 Test Item Value Reference Range Interpretation Comments CO2 (test code = CO2) 25 24-32 [place] 480482-07-25 08:03:00 Test Item Value Reference Range Interpretation Comments AGAP (test code = AGAP) 14.4 10.0-20.0 [place] 480482-07-25 08:03:00 Test Item Value Reference Range Interpretation Comments Calcium Lvl (test code = Calcium Lvl) 9.1 8.5-10.5 [place] 480482-07-25 08:03:00 Test Item Value Reference Range Interpretation Comments B/C Ratio (test code = B/C Ratio) 25 1 6-25 [place] 480482-07-25 08:03:00 Test Item Value Reference Range Interpretation Comments Total Protein (test code = Total 6.7 6.4-8.4 Protein) [place] 480482-07-25 08:03:00 Test Item Value Reference Range Interpretation Comments Albumin Lvl (test code = Albumin Lvl) 3.2 3.5-5.0 [place] 480482-07-25 08:03:00 Test Item Value Reference Range Interpretation Comments Globulin (test code = Globulin) 3.5 2.7-4.2 [place] 480482-07-25 08:03:00 Test Item Value Reference Range Interpretation Comments A/G Ratio (test code = A/G Ratio) 0.9 1 0.7-1.6 [place] 480482-07-25 08:03:00 Test Item Value Reference Range Interpretation Comments ALT (test code = ALT) 19 See_Comment [Auto mated message] The system which ge nerated this result transmit lavon reference range : <=65. The reference range was not used to interpr et this result as dionne l/abnormal. [facility] HospitalLiquidTalk [id number] 08:03:00 Test Item Value Reference Range Interpretation Comments AST (test code = AST) 26 See_Comment [Auto mated message] The system which ge nerated this result transmit lavon reference range : <=37. The reference range was not used to interpr et this result as dionne l/abnormal. [place] 480482-07-25 08:03:00 Test Item Value Reference Range Interpretation Comments Alk Phos (test code = Alk Phos) 56 39-136 [place] 480482-07-25 08:03:00 Test Item Value Reference Range Interpretation Comments Bili Total (test code = Bili Total) 1.0 0.2-1.3 [place] 480482-07-25 08:03:00 Test Item Value Reference Range Interpretation Comments eGFR (test code = eGFR) 67 [place] 480482-07-25 08:03:00 Test Item Value Reference Range Interpretation Comments Magnesium Lvl (test code = Magnesium 1.9 1.8-2.4 Lvl) [place] 480482-07-25 08:03:00 Test Item Value Reference Range Interpretation Comments Procalcitonin Lvl (test no gt See_Comment [Au tomated message] code = Procalcitonin Lvl) e system which generated this result transmitted ref erence range: <=0.10. The reference range was not used to interpr et this result as normal/abnormal . [facility]2022-07-25 08:03:00 Test Item Value Reference Range Interpretation Comments LDH (test code = LDH) 354 98-192 [place] 325412-07-25 08:03:00 Test Item Value Reference Range Interpretation Comments WBC (test code = WBC) 7.5 3.7-10.4 [place] [address]-07-25 08:03:00 Test Item Value Reference Range Interpretation Comments RBC (test code = RBC) 3.44 4.20-5.40 [place] [address]-07-25 08:03:00 Test Item Value Reference Range Interpretation Comments Hgb (test code = Hgb) 8.3 12.0-16.0 [place] [address]-07-25 08:03:00 Test Item Value Reference Range Interpretation Comments Hct (test code = Hct) 26.2 36.0-48.0 [place] [address]-07-25 08:03:00 Test Item Value Reference Range Interpretation Comments MCV (test code = MCV) 76.1 80.0-98.0 [place] [address]-07-25 08:03:00 Test Item Value Reference Range Interpretation Comments MCH (test code = MCH) 24.0 pg 27.0-31.0 [place] 325412-07-25 08:03:00 Test Item Value Reference Range Interpretation Comments MCHC (test code = MCHC) 31.6 32.0-36.0 [place] 325412-07-25 08:03:00 Test Item Value Reference Range Interpretation Comments RDW (test code = RDW) 20.9 11.5-14.5 [place] 325412-07-25 08:03:00 Test Item Value Reference Range Interpretation Comments Platelet (test code = Platelet) 289 133-450 [facility] CampusXqbjpziULDTKWTJQX0716-50-15 08:03:00 Test Item Value Reference Range Interpretation Comments MPV (test code = MPV) 7.5 7.4-10.4 [place] 325412-07-25 08:03:00 Test Item Value Reference Range Interpretation Comments Segs (test code = Segs) 94.0 45.0-75.0 [place] 325412-07-25 08:03:00 Test Item Value Reference Range Interpretation Comments Lymphocytes (test code = Lymphocytes) 4.3 20.0-40.0 [place] 325412-07-25 08:03:00 Test Item Value Reference Range Interpretation Comments Monocytes (test code = Monocytes) 1.6 2.0-12.0 [place] 325412-07-25 08:03:00 Test Item Value Reference Range Interpretation Comments Basophils (test code = 0.1 See_Comment [Aut omated message] The Basophils) system which ge nerated this result tra nsmitted reference range : <=1.0. The reference r hugo was not used to int erpret this result as normal/abnormal . [facility] CampusGrxqpczDBVXDSFAFU5474-00-82 08:03:00 Test Item Value Reference Range Interpretation Comments Neutrophils # (test code = Neutrophils 7.0 1.5-8.1 #) [place] 325412-07-25 08:03:00 Test Item Value Reference Range Interpretation Comments Lymphocytes # (test code = Lymphocytes 0.3 1.0-5.5 #) [place] 325412-07-25 08:03:00 Test Item Value Reference Range Interpretation Comments Monocytes # (test code 0.1 See_Comment [Aut omated message] The = Monocytes #) system which generated this result tra nsmitted reference range : <=0.8. The reference r hugo was not used to int erpret this result as normal/abnormal . [facility] HospitalFfwyhwuPODNVTADCM0533-65-28 08:03:00 Test Item Value Reference Range Interpretation Comments Microcyte (test code = 1+ *ABN*(06/13/22 Microcyte) 3:03 AM) [facility] CenterACTV8AC [id number] 08:03:00 Test Item Value Reference Range Interpretation Comments HS Troponin I 1 Hr (test code = HS 50 Troponin I 1 Hr) [facility]icsE[facility] [id number] 08:03:00 Test Item Value Reference Range Interpretation Comments HS Troponin I 0 to 1 See Note 5(06/13/22 Hour Delta (test code = 3:03 AM) HS Troponin I 0 to 1 Hour Delta) [facility] [id number] 08:03:00 Test Item Value Reference Range Interpretation Comments Glucose Lvl (test code = Glucose Lvl) 142 70-99 [facility] [id number] 08:03:00 Test Item Value Reference Range Interpretation Comments BUN (test code = BUN) 21 7-22 [facility] [id number] 08:03:00 Test Item Value Reference Range Interpretation Comments Creatinine Lvl (test code = Creatinine 0.84 0.50-1.40 Lvl) [facility] [id number] 08:03:00 Test Item Value Reference Range Interpretation Comments Sodium Lvl (test code = Sodium Lvl) 133 135-145 [facility] [id number] 08:03:00 Test Item Value Reference Range Interpretation Comments Potassium Lvl (test code = Potassium 4.4 3.5-5.1 Lvl) [facility] [id number] 08:03:00 Test Item Value Reference Range Interpretation Comments Chloride Lvl (test code = Chloride Lvl) 98 95-109 [facility] [id number] 08:03:00 Test Item Value Reference Range Interpretation Comments CO2 (test code = CO2) 25 24-32 [facility] [id number] 08:03:00 Test Item Value Reference Range Interpretation Comments AGAP (test code = AGAP) 14.4 10.0-20.0 [facility] [id number] 08:03:00 Test Item Value Reference Range Interpretation Comments Calcium Lvl (test code = Calcium Lvl) 9.1 8.5-10.5 [facility] [id number] 08:03:00 Test Item Value Reference Range Interpretation Comments B/C Ratio (test code = B/C Ratio) 25 1 6-25 [facility] [id number] 08:03:00 Test Item Value Reference Range Interpretation Comments Total Protein (test code = Total 6.7 6.4-8.4 Protein) [facility] [id number] 08:03:00 Test Item Value Reference Range Interpretation Comments Albumin Lvl (test code = Albumin Lvl) 3.2 3.5-5.0 [facility] [id number] 08:03:00 Test Item Value Reference Range Interpretation Comments Globulin (test code = Globulin) 3.5 2.7-4.2 [facility] [id number] 08:03:00 Test Item Value Reference Range Interpretation Comments A/G Ratio (test code = A/G Ratio) 0.9 1 0.7-1.6 [facility] [id number] 08:03:00 Test Item Value Reference Range Interpretation Comments ALT (test code = ALT) 19 See_Comment [Auto mated message] The system which ge nerated this result transmit lavon reference range : <=65. The reference range was not used to interpr et this result as dionne l/abnormal. [facility] [employer] [id number] 08:03:00 Test Item Value Reference Range Interpretation Comments AST (test code = AST) 26 See_Comment [Auto mated message] The system which ge nerated this result transmit lavon reference range : <=37. The reference range was not used to interpr et this result as dionne l/abnormal. [facility] [id number] 08:03:00 Test Item Value Reference Range Interpretation Comments Alk Phos (test code = Alk Phos) 56 39-136 [facility] [id number] 08:03:00 Test Item Value Reference Range Interpretation Comments Bili Total (test code = Bili Total) 1.0 0.2-1.3 [place] 480482-07-25 08:03:00 Test Item Value Reference Range Interpretation Comments eGFR (test code = eGFR) 67 [place] 480482-07-25 08:03:00 Test Item Value Reference Range Interpretation Comments Magnesium Lvl (test code = Magnesium 1.9 1.8-2.4 Lvl) [place] 480482-07-25 08:03:00 Test Item Value Reference Range Interpretation Comments Procalcitonin Lvl (test no gt See_Comment [Au tomated message] code = Procalcitonin Lvl) e system which generated this result transmitted ref erence range: <=0.10. The reference range was not used to interpr et this result as normal/abnormal . [place] 480482-07-25 08:03:00 Test Item Value Reference Range Interpretation Comments LDH (test code = LDH) 354 98-192 [place] 325412-07-25 08:03:00 Test Item Value Reference Range Interpretation Comments WBC (test code = WBC) 7.5 3.7-10.4 [place] 325412-07-25 08:03:00 Test Item Value Reference Range Interpretation Comments RBC (test code = RBC) 3.44 4.20-5.40 [place] [address]-07-25 08:03:00 Test Item Value Reference Range Interpretation Comments Hgb (test code = Hgb) 8.3 12.0-16.0 [place] [address]-07-25 08:03:00 Test Item Value Reference Range Interpretation Comments Hct (test code = Hct) 26.2 36.0-48.0 [place] [address]-07-25 08:03:00 Test Item Value Reference Range Interpretation Comments MCV (test code = MCV) 76.1 80.0-98.0 [place] [address]-07-25 08:03:00 Test Item Value Reference Range Interpretation Comments MCH (test code = MCH) 24.0 pg 27.0-31.0 [place] 325412-07-25 08:03:00 Test Item Value Reference Range Interpretation Comments MCHC (test code = MCHC) 31.6 32.0-36.0 [place] [address]-07-25 08:03:00 Test Item Value Reference Range Interpretation Comments RDW (test code = RDW) 20.9 11.5-14.5 [place] 325412-07-25 08:03:00 Test Item Value Reference Range Interpretation Comments Platelet (test code = Platelet) 289 133-450 [place] 325412-07-25 08:03:00 Test Item Value Reference Range Interpretation Comments MPV (test code = MPV) 7.5 7.4-10.4 [place] 325412-07-25 08:03:00 Test Item Value Reference Range Interpretation Comments Segs (test code = Segs) 94.0 45.0-75.0 [place] 325412-07-25 08:03:00 Test Item Value Reference Range Interpretation Comments Lymphocytes (test code = Lymphocytes) 4.3 20.0-40.0 [place] 325412-07-25 08:03:00 Test Item Value Reference Range Interpretation Comments Monocytes (test code = Monocytes) 1.6 2.0-12.0 [place] 325412-07-25 08:03:00 Test Item Value Reference Range Interpretation Comments Basophils (test code = 0.1 See_Comment [Aut omated message] The Basophils) system which ge nerated this result tra nsmitted reference range : <=1.0. The reference r hugo was not used to int erpret this result as normal/abnormal . [facility] CampusXeowcecQJIRYPENUE4970-12-66 08:03:00 Test Item Value Reference Range Interpretation Comments Neutrophils # (test code = Neutrophils 7.0 1.5-8.1 #) [place] 325412-07-25 08:03:00 Test Item Value Reference Range Interpretation Comments Lymphocytes # (test code = Lymphocytes 0.3 1.0-5.5 #) [place] [address]-07-25 08:03:00 Test Item Value Reference Range Interpretation Comments Monocytes # (test code 0.1 See_Comment [Aut omated message] The = Monocytes #) system which generated this result tra nsmitted reference range : <=0.8. The reference r hugo was not used to int erpret this result as normal/abnormal . [place] 325412-07-25 08:03:00 Test Item Value Reference Range Interpretation Comments Microcyte (test code = 1+ *ABN*(06/13/22 Microcyte) 3:03 AM) [facility] [employer] [id number] 08:03:00 Test Item Value Reference Range Interpretation Comments HS Troponin I 1 Hr (test code = HS 50 Troponin I 1 Hr) [facility]ACT[facility] [id number] 08:03:00 Test Item Value Reference Range Interpretation Comments HS Troponin I 0 to 1 See Note 5(06/13/22 Hour Delta (test code = 3:03 AM) HS Troponin I 0 to 1 Hour Delta) [facility] [employer] [id number] 08:03:00 Test Item Value Reference Range Interpretation Comments Glucose Lvl (test code = Glucose Lvl) 142 70-99 [facility] [employer] [id number] 08:03:00 Test Item Value Reference Range Interpretation Comments BUN (test code = BUN) 21 - [facility] [employer] [id number] 08:03:00 Test Item Value Reference Range Interpretation Comments Creatinine Lvl (test code = Creatinine 0.84 0.50-1.40 Lvl) [facility] [employer] [id number] 08:03:00 Test Item Value Reference Range Interpretation Comments Sodium Lvl (test code = Sodium Lvl) 133 135-145 [facility] [employer] [id number] 08:03:00 Test Item Value Reference Range Interpretation Comments Potassium Lvl (test code = Potassium 4.4 3.5-5.1 Lvl) [facility] [employer] [id number] 08:03:00 Test Item Value Reference Range Interpretation Comments Chloride Lvl (test code = Chloride Lvl) 98 95-109 [facility] [employer] [id number] 08:03:00 Test Item Value Reference Range Interpretation Comments CO2 (test code = CO2) 25 24-32 [facility] [employer] [id number] 08:03:00 Test Item Value Reference Range Interpretation Comments AGAP (test code = AGAP) 14.4 10.0-20.0 [facility] [employer] [id number] 08:03:00 Test Item Value Reference Range Interpretation Comments Calcium Lvl (test code = Calcium Lvl) 9.1 8.5-10.5 [facility] [employer] [id number] 08:03:00 Test Item Value Reference Range Interpretation Comments B/C Ratio (test code = B/C Ratio) 25 1 6-25 [facility] [id number] 08:03:00 Test Item Value Reference Range Interpretation Comments Total Protein (test code = Total 6.7 6.4-8.4 Protein) [facility] CenterIRIS.TVDAV[place] [id number] 08:03:00 Test Item Value Reference Range Interpretation Comments Albumin Lvl (test code = Albumin Lvl) 3.2 3.5-5.0 [facility] [id number] 08:03:00 Test Item Value Reference Range Interpretation Comments Globulin (test code = Globulin) 3.5 2.7-4.2 [facility] [id number] 08:03:00 Test Item Value Reference Range Interpretation Comments A/G Ratio (test code = A/G Ratio) 0.9 1 0.7-1.6 [facility] [id number] 08:03:00 Test Item Value Reference Range Interpretation Comments ALT (test code = ALT) 19 See_Comment [Auto mated message] The system which ge nerated this result transmit lavon reference range : <=65. The reference range was not used to interpr et this result as dionne l/abnormal. [facility] [id number] 08:03:00 Test Item Value Reference Range Interpretation Comments AST (test code = AST) 26 See_Comment [Auto mated message] The system which ge nerated this result transmit lavon reference range : <=37. The reference range was not used to interpr et this result as dionne l/abnormal. [facility] [id number] 08:03:00 Test Item Value Reference Range Interpretation Comments Alk Phos (test code = Alk Phos) 56 39-136 [facility] [id number] 08:03:00 Test Item Value Reference Range Interpretation Comments Bili Total (test code = Bili Total) 1.0 0.2-1.3 [facility] [id number] 08:03:00 Test Item Value Reference Range Interpretation Comments eGFR (test code = eGFR) 67 [facility] [id number] 08:03:00 Test Item Value Reference Range Interpretation Comments Magnesium Lvl (test code = Magnesium 1.9 1.8-2.4 Lvl) [facility] [id number] 08:03:00 Test Item Value Reference Range Interpretation Comments Procalcitonin Lvl (test no gt See_Comment [Au tomated message] code = Procalcitonin Lvl) Th e system which generated this result transmitted ref erence range: <=0.10. The reference range was not used to interpr et this result as normal/abnormal . [facility]2022-07-25 08:03:00 Test Item Value Reference Range Interpretation Comments LDH (test code = LDH) 354 98-192 [facility] [id number] 08:03:00 Test Item Value Reference Range Interpretation Comments WBC (test code = WBC) 7.5 3.7-10.4 [facility] CampusIwearrqOYJKRTMBRU1780-20-11 08:03:00 Test Item Value Reference Range Interpretation Comments RBC (test code = RBC) 3.44 4.20-5.40 [facility] [id number] 08:03:00 Test Item Value Reference Range Interpretation Comments Hgb (test code = Hgb) 8.3 12.0-16.0 [facility] [place] [facility]BzymkaxXQRRBOWKZE5815-14-73 08:03:00 Test Item Value Reference Range Interpretation Comments Hct (test code = Hct) 26.2 36.0-48.0 [facility] CampusLorvfkeOZOZJAVSBA5827-25-37 08:03:00 Test Item Value Reference Range Interpretation Comments MCV (test code = MCV) 76.1 80.0-98.0 [facility] CampusClwdscwYTGCJDFYVL3708-56-46 08:03:00 Test Item Value Reference Range Interpretation Comments MCH (test code = MCH) 24.0 pg 27.0-31.0 [facility] CampusWunygptEXBLTKIXGC6475-76-95 08:03:00 Test Item Value Reference Range Interpretation Comments MCHC (test code = MCHC) 31.6 32.0-36.0 [facility] CampusKprvkvgBRPDNEYLCC1003-40-29 08:03:00 Test Item Value Reference Range Interpretation Comments RDW (test code = RDW) 20.9 11.5-14.5 [facility] CampusFzvwzvbDCFXGXKBKI8582-28-15 08:03:00 Test Item Value Reference Range Interpretation Comments Platelet (test code = Platelet) 289 133-450 [facility] CampusAwsqpdxHONNABSTLT7181-07-76 08:03:00 Test Item Value Reference Range Interpretation Comments MPV (test code = MPV) 7.5 7.4-10.4 [facility] CampusTjcobupJGWXMMMEIW6396-34-96 08:03:00 Test Item Value Reference Range Interpretation Comments Segs (test code = Segs) 94.0 45.0-75.0 [facility] CampusDhhrzmvLLHDVTCZVD0882-68-27 08:03:00 Test Item Value Reference Range Interpretation Comments Lymphocytes (test code = Lymphocytes) 4.3 20.0-40.0 [facility] CampusVvtluooGVHCEUXEQC6735-14-00 08:03:00 Test Item Value Reference Range Interpretation Comments Monocytes (test code = Monocytes) 1.6 2.0-12.0 [facility] CampusXldroyzKSUWPTPSII3195-83-31 08:03:00 Test Item Value Reference Range Interpretation Comments Basophils (test code = 0.1 See_Comment [Aut omated message] The Basophils) system which ge nerated this result tra nsmitted reference range : <=1.0. The reference r hugo was not used to int erpret this result as normal/abnormal . [facility] CampusFvtovrwVHXOQWFXGM1954-23-12 08:03:00 Test Item Value Reference Range Interpretation Comments Neutrophils # (test code = Neutrophils 7.0 1.5-8.1 #) [facility] CampusSodeahwJOPESXIXHJ5112-40-92 08:03:00 Test Item Value Reference Range Interpretation Comments Lymphocytes # (test code = Lymphocytes 0.3 1.0-5.5 #) [facility] CampusVeyefxeYGXXCDTDCD3344-55-18 08:03:00 Test Item Value Reference Range Interpretation Comments Monocytes # (test code 0.1 See_Comment [Aut omated message] The = Monocytes #) system which generated this result tra nsmitted reference range : <=0.8. The reference r hugo was not used to int erpret this result as normal/abnormal . [facility] CampusPnvayurNETQHQXWBI6007-92-55 08:03:00 Test Item Value Reference Range Interpretation Comments Microcyte (test code = 1+ *ABN*(06/13/22 Microcyte) 3:03 AM) [facility] [id number] 08:03:00 Test Item Value Reference Range Interpretation Comments HS Troponin I 1 Hr (test code = HS 50 Troponin I 1 Hr) [facility] [id number] 08:03:00 Test Item Value Reference Range Interpretation Comments HS Troponin I 0 to 1 See Note 5(06/13/22 Hour Delta (test code = 3:03 AM) HS Troponin I 0 to 1 Hour Delta) [place] 480482-07-25 08:03:00 Test Item Value Reference Range Interpretation Comments Glucose Lvl (test code = Glucose Lvl) 142 70-99 [place] 480482-07-25 08:03:00 Test Item Value Reference Range Interpretation Comments BUN (test code = BUN) 21 06-10 [place] 480482-07-25 08:03:00 Test Item Value Reference Range Interpretation Comments Creatinine Lvl (test code = Creatinine 0.84 0.50-1.40 Lvl) [place] 480482-07-25 08:03:00 Test Item Value Reference Range Interpretation Comments Sodium Lvl (test code = Sodium Lvl) 133 135-145 [place] 480482-07-25 08:03:00 Test Item Value Reference Range Interpretation Comments Potassium Lvl (test code = Potassium 4.4 3.5-5.1 Lvl) [place] 480482-07-25 08:03:00 Test Item Value Reference Range Interpretation Comments Chloride Lvl (test code = Chloride Lvl) 98 95-109 [place] 480482-07-25 08:03:00 Test Item Value Reference Range Interpretation Comments CO2 (test code = CO2) 25 24-32 [place] 480482-07-25 08:03:00 Test Item Value Reference Range Interpretation Comments AGAP (test code = AGAP) 14.4 10.0-20.0 [place] 480482-07-25 08:03:00 Test Item Value Reference Range Interpretation Comments Calcium Lvl (test code = Calcium Lvl) 9.1 8.5-10.5 [facility]2022-07-25 08:03:00 Test Item Value Reference Range Interpretation Comments B/C Ratio (test code = B/C Ratio) 25 1 6-25 [place] 480482-07-25 08:03:00 Test Item Value Reference Range Interpretation Comments Total Protein (test code = Total 6.7 6.4-8.4 Protein) [place] 480482-07-25 08:03:00 Test Item Value Reference Range Interpretation Comments Albumin Lvl (test code = Albumin Lvl) 3.2 3.5-5.0 [facility] [employer] [id number] 08:03:00 Test Item Value Reference Range Interpretation Comments Globulin (test code = Globulin) 3.5 2.7-4.2 [facility] [id number] 08:03:00 Test Item Value Reference Range Interpretation Comments A/G Ratio (test code = A/G Ratio) 0.9 1 0.7-1.6 [facility] [id number] 08:03:00 Test Item Value Reference Range Interpretation Comments ALT (test code = ALT) 19 See_Comment [Auto mated message] The system which ge nerated this result transmit lavon reference range : <=65. The reference range was not used to interpr et this result as dionne l/abnormal. [facility] [employer] [id number] 08:03:00 Test Item Value Reference Range Interpretation Comments AST (test code = AST) 26 See_Comment [Auto mated message] The system which ge nerated this result transmit lavon reference range : <=37. The reference range was not used to interpr et this result as dionne l/abnormal. [facility] [employer] [id number] 08:03:00 Test Item Value Reference Range Interpretation Comments Alk Phos (test code = Alk Phos) 56 39-136 [facility] [employer] [id number] 08:03:00 Test Item Value Reference Range Interpretation Comments Bili Total (test code = Bili Total) 1.0 0.2-1.3 [facility] [employer] [id number] 08:03:00 Test Item Value Reference Range Interpretation Comments eGFR (test code = eGFR) 67 [facility] [id number] 08:03:00 Test Item Value Reference Range Interpretation Comments Magnesium Lvl (test code = Magnesium 1.9 1.8-2.4 Lvl) [facility] [id number] 08:03:00 Test Item Value Reference Range Interpretation Comments Procalcitonin Lvl (test no gt See_Comment [Au tomated message] code = Procalcitonin Lvl) Th e system which generated this result transmitted ref erence range: <=0.10. The reference range was not used to interpr et this result as normal/abnormal . [facility]2022-07-25 08:03:00 Test Item Value Reference Range Interpretation Comments LDH (test code = LDH) 354 98-192 [facility] CampusGaywumnMMMIXNNFCN3680-75-99 08:03:00 Test Item Value Reference Range Interpretation Comments WBC (test code = WBC) 7.5 3.7-10.4 [facility] CampusGymfmwdAESCEDHEDQ8779-65-04 08:03:00 Test Item Value Reference Range Interpretation Comments RBC (test code = RBC) 3.44 4.20-5.40 [facility] CampusHfggyofSOKUYTBEPT2224-30-06 08:03:00 Test Item Value Reference Range Interpretation Comments Hgb (test code = Hgb) 8.3 12.0-16.0 [place] 325412-07-25 08:03:00 Test Item Value Reference Range Interpretation Comments Hct (test code = Hct) 26.2 36.0-48.0 [facility] CampusPhvjjwlHCBETWFSKK7711-38-81 08:03:00 Test Item Value Reference Range Interpretation Comments MCV (test code = MCV) 76.1 80.0-98.0 [facility] CampusImkqqllXKAXCEPIKT6818-11-75 08:03:00 Test Item Value Reference Range Interpretation Comments MCH (test code = MCH) 24.0 pg 27.0-31.0 [facility] CampusXgrkaurSXSYMUVHPJ2302-32-77 08:03:00 Test Item Value Reference Range Interpretation Comments MCHC (test code = MCHC) 31.6 32.0-36.0 [facility] CampusPrzaaktAVQAVXREEC2070-05-67 08:03:00 Test Item Value Reference Range Interpretation Comments RDW (test code = RDW) 20.9 11.5-14.5 [facility] CampusRmrsqxxGONAJTKQVN6019-86-91 08:03:00 Test Item Value Reference Range Interpretation Comments Platelet (test code = Platelet) 289 133-450 [facility] CampusGpkfiyxTEVZHADALK9305-89-56 08:03:00 Test Item Value Reference Range Interpretation Comments MPV (test code = MPV) 7.5 7.4-10.4 [facility] [place] CampusAbjjeoqHRALRJQONB4944-96-48 08:03:00 Test Item Value Reference Range Interpretation Comments Segs (test code = Segs) 94.0 45.0-75.0 [facility] CampusXhworjrQFOSKBIBBY0490-38-79 08:03:00 Test Item Value Reference Range Interpretation Comments Lymphocytes (test code = Lymphocytes) 4.3 20.0-40.0 [facility] CenterSjmzhrfISNEAXBOON8075-15-40 08:03:00 Test Item Value Reference Range Interpretation Comments Monocytes (test code = Monocytes) 1.6 2.0-12.0 [facility]Ijn[facility]zuIMAVIEGCTN7994-94-[facility] 08:03:00 Test Item Value Reference Range Interpretation Comments Basophils (test code = 0.1 See_Comment [Aut omated message] The Basophils) system which ge nerated this result tra nsmitted reference range : <=1.0. The reference r hugo was not used to int erpret this result as normal/abnormal . [facility] CenterXxvqofuPPQDEOWYFM8329-31-10 08:03:00 Test Item Value Reference Range Interpretation Comments Neutrophils # (test code = Neutrophils 7.0 1.5-8.1 #) [facility] CampusSwzfmfyTEDOSOVSFD6973-80-60 08:03:00 Test Item Value Reference Range Interpretation Comments Lymphocytes # (test code = Lymphocytes 0.3 1.0-5.5 #) [facility]IfhfpjjJGCCEIIGQC7810-91-87 08:03:00 Test Item Value Reference Range Interpretation Comments Monocytes # (test code 0.1 See_Comment [Aut omated message] The = Monocytes #) system which generated this result tra nsmitted reference range : <=0.8. The reference r hugo was not used to int erpret this result as normal/abnormal . [facility] HospitalMehgewnUGKWQUPAQP6594-26-33 08:03:00 Test Item Value Reference Range Interpretation Comments Microcyte (test code = 1+ *ABN*(06/13/22 Microcyte) 3:03 AM) [facility] 08:03:00 Test Item Value Reference Range Interpretation Comments HS Troponin I 1 Hr (test code = HS 50 Troponin I 1 Hr) [facility] 08:03:00 Test Item Value Reference Range Interpretation Comments HS Troponin I 0 to 1 See Note 5(06/13/22 Hour Delta (test code = 3:03 AM) HS Troponin I 0 to 1 Hour Delta) [facility] [employer]2022-07-25 08:03:00 Test Item Value Reference Range Interpretation Comments Glucose Lvl (test code = Glucose Lvl) 142 70-99 [facility] CenterSiving Egil KvalebergQJVRL7871-19-31 08:03:00 Test Item Value Reference Range Interpretation Comments BUN (test code = BUN) 21 7-22 [place] 480482-07-25 08:03:00 Test Item Value Reference Range Interpretation Comments Creatinine Lvl (test code = Creatinine 0.84 0.50-1.40 Lvl) [place] 480482-07-25 08:03:00 Test Item Value Reference Range Interpretation Comments Sodium Lvl (test code = Sodium Lvl) 133 135-145 [place] 480482-07-25 08:03:00 Test Item Value Reference Range Interpretation Comments Potassium Lvl (test code = Potassium 4.4 3.5-5.1 Lvl) [place] 480482-07-25 08:03:00 Test Item Value Reference Range Interpretation Comments Chloride Lvl (test code = Chloride Lvl) 98 95-109 [place] 480482-07-25 08:03:00 Test Item Value Reference Range Interpretation Comments CO2 (test code = CO2) 24-32 [place] 480482-07-25 08:03:00 Test Item Value Reference Range Interpretation Comments AGAP (test code = AGAP) 14.4 10.0-20.0 [place] 480482-07-25 08:03:00 Test Item Value Reference Range Interpretation Comments Calcium Lvl (test code = Calcium Lvl) 9.1 8.5-10.5 [place] 480482-07-25 08:03:00 Test Item Value Reference Range Interpretation Comments B/C Ratio (test code = B/C Ratio) 25 1 6-25 [place] 480482-07-25 08:03:00 Test Item Value Reference Range Interpretation Comments Total Protein (test code = Total 6.7 6.4-8.4 Protein) [place] 480482-07-25 08:03:00 Test Item Value Reference Range Interpretation Comments Albumin Lvl (test code = Albumin Lvl) 3.2 3.5-5.0 [place] 480482-07-25 08:03:00 Test Item Value Reference Range Interpretation Comments Globulin (test code = Globulin) 3.5 2.7-4.2 [place] 480482-07-25 08:03:00 Test Item Value Reference Range Interpretation Comments A/G Ratio (test code = A/G Ratio) 0.9 1 0.7-1.6 [facility] [employer] [id number] 08:03:00 Test Item Value Reference Range Interpretation Comments ALT (test code = ALT) 19 See_Comment [Auto mated message] The system which ge nerated this result transmit lavon reference range : <=65. The reference range was not used to interpr et this result as dionne l/abnormal. [facility] [employer] [id number] 08:03:00 Test Item Value Reference Range Interpretation Comments AST (test code = AST) 26 See_Comment [Auto mated message] The system which ge nerated this result transmit lavon reference range : <=37. The reference range was not used to interpr et this result as dionne l/abnormal. [facility] [employer] [id number] 08:03:00 Test Item Value Reference Range Interpretation Comments Alk Phos (test code = Alk Phos) 56 39-136 [facility] [employer] [id number] 08:03:00 Test Item Value Reference Range Interpretation Comments Bili Total (test code = Bili Total) 1.0 0.2-1.3 [facility] [employer] [id number] 08:03:00 Test Item Value Reference Range Interpretation Comments eGFR (test code = eGFR) 67 [facility] [employer] [id number] 08:03:00 Test Item Value Reference Range Interpretation Comments Magnesium Lvl (test code = Magnesium 1.9 1.8-2.4 Lvl) [facility] [id number] 08:03:00 Test Item Value Reference Range Interpretation Comments Procalcitonin Lvl (test no gt See_Comment [Au tomated message] code = Procalcitonin Lvl) Th e system which generated this result transmitted ref erence range: <=0.10. The reference range was not used to interpr et this result as normal/abnormal . [facility] [employer] [id number] 08:03:00 Test Item Value Reference Range Interpretation Comments LDH (test code = LDH) 354 98-192 [facility] CenterWsuoekhEFNBEDPCDV2204-44-70 08:03:00 Test Item Value Reference Range Interpretation Comments WBC (test code = WBC) 7.5 3.7-10.4 [facility] CenterOzkvbffKHOLGHQCSH6330-60-24 08:03:00 Test Item Value Reference Range Interpretation Comments RBC (test code = RBC) 3.44 4.20-5.40 [facility] [place] CampusPqqkrfpOLEPOKXFDT4812-07-20 08:03:00 Test Item Value Reference Range Interpretation Comments Hgb (test code = Hgb) 8.3 12.0-16.0 [facility] [place] CampusPjulagkILVREVAKNL3429-44-46 08:03:00 Test Item Value Reference Range Interpretation Comments Hct (test code = Hct) 26.2 36.0-48.0 [facility] [place] CampusTiqrrnzLMWFMOMVEG4676-22-10 08:03:00 Test Item Value Reference Range Interpretation Comments MCV (test code = MCV) 76.1 80.0-98.0 [facility] [place] CampusOnnnrnjVSRYMCTUHN8303-79-31 08:03:00 Test Item Value Reference Range Interpretation Comments MCH (test code = MCH) 24.0 pg 27.0-31.0 [facility] [place] CampusNfhpjcoZLZCNWVLQW2108-53-80 08:03:00 Test Item Value Reference Range Interpretation Comments MCHC (test code = MCHC) 31.6 32.0-36.0 [facility] [place] CampusDbdzuwdCWKKJXXCEB1804-97-20 08:03:00 Test Item Value Reference Range Interpretation Comments RDW (test code = RDW) 20.9 11.5-14.5 [facility] [place] CampusLjbwbdgBEXNBJOJQH3174-06-75 08:03:00 Test Item Value Reference Range Interpretation Comments Platelet (test code = Platelet) 289 133-450 [facility] [place] CampusXbqlkqqQQQJCYWOVR3306-87-27 08:03:00 Test Item Value Reference Range Interpretation Comments MPV (test code = MPV) 7.5 7.4-10.4 [facility] [place] CampusWtfjirdXIKUIUQBGW1553-93-55 08:03:00 Test Item Value Reference Range Interpretation Comments Segs (test code = Segs) 94.0 45.0-75.0 [facility] [place] CampusYamgqdjJJYSVFNBTG4447-62-94 08:03:00 Test Item Value Reference Range Interpretation Comments Lymphocytes (test code = Lymphocytes) 4.3 20.0-40.0 [facility] [place] CampusGiukmmqXLYFNCJJPC2694-17-63 08:03:00 Test Item Value Reference Range Interpretation Comments Monocytes (test code = Monocytes) 1.6 2.0-12.0 [place] 325412-07-25 08:03:00 Test Item Value Reference Range Interpretation Comments Basophils (test code = 0.1 See_Comment [Aut omated message] The Basophils) system which ge nerated this result tra nsmitted reference range : <=1.0. The reference r hugo was not used to int erpret this result as normal/abnormal . [facility] EsiqpgdHHQITDAETP4549-19-70 08:03:00 Test Item Value Reference Range Interpretation Comments Neutrophils # (test code = Neutrophils 7.0 1.5-8.1 #) [facility] CenterXpembhoDUCDZRLTMX3438-07-42 08:03:00 Test Item Value Reference Range Interpretation Comments Lymphocytes # (test code = Lymphocytes 0.3 1.0-5.5 #) [facility] CenterMtdawasJJOAUEWGQS5963-59-12 08:03:00 Test Item Value Reference Range Interpretation Comments Monocytes # (test code 0.1 See_Comment [Aut omated message] The = Monocytes #) system which generated this result tra nsmitted reference range : <=0.8. The reference r hugo was not used to int erpret this result as normal/abnormal . [facility] CenterWifyvsqFSWXEQLHTN2929-96-15 08:03:00 Test Item Value Reference Range Interpretation Comments Microcyte (test code = 1+ *ABN*(06/13/22 Microcyte) 3:03 AM) [facility]2022-07-25 08:03:00 Test Item Value Reference Range Interpretation Comments HS Troponin I 1 Hr (test code = HS 50 Troponin I 1 Hr) [facility]2022-07-25 08:03:00 Test Item Value Reference Range Interpretation Comments HS Troponin I 0 to 1 See Note 5(06/13/22 Hour Delta (test code = 3:03 AM) HS Troponin I 0 to 1 Hour Delta) [facility] [employer]2022-07-25 08:03:00 Test Item Value Reference Range Interpretation Comments Glucose Lvl (test code = Glucose Lvl) 142 70-99 [facility] [employer]2022-07-25 08:03:00 Test Item Value Reference Range Interpretation Comments BUN (test code = BUN) 21 06-10 [facility] [employer]2022-07-25 08:03:00 Test Item Value Reference Range Interpretation Comments Creatinine Lvl (test code = Creatinine 0.84 0.50-1.40 Lvl) [facility] [employer]2-07-25 08:03:00 Test Item Value Reference Range Interpretation Comments Sodium Lvl (test code = Sodium Lvl) 133 135-145 [place] 480482-07-25 08:03:00 Test Item Value Reference Range Interpretation Comments Potassium Lvl (test code = Potassium 4.4 3.5-5.1 Lvl) [place] 480482-07-25 08:03:00 Test Item Value Reference Range Interpretation Comments Chloride Lvl (test code = Chloride Lvl) 98 95-109 [place] 480482-07-25 08:03:00 Test Item Value Reference Range Interpretation Comments CO2 (test code = CO2) 25 24-32 [place] 480482-07-25 08:03:00 Test Item Value Reference Range Interpretation Comments AGAP (test code = AGAP) 14.4 10.0-20.0 [place] 480482-07-25 08:03:00 Test Item Value Reference Range Interpretation Comments Calcium Lvl (test code = Calcium Lvl) 9.1 8.5-10.5 [place] 480482-07-25 08:03:00 Test Item Value Reference Range Interpretation Comments B/C Ratio (test code = B/C Ratio) 25 1 6-25 [place] 480482-07-25 08:03:00 Test Item Value Reference Range Interpretation Comments Total Protein (test code = Total 6.7 6.4-8.4 Protein) [place] 480482-07-25 08:03:00 Test Item Value Reference Range Interpretation Comments Albumin Lvl (test code = Albumin Lvl) 3.2 3.5-5.0 [facility]2022-07-25 08:03:00 Test Item Value Reference Range Interpretation Comments Globulin (test code = Globulin) 3.5 2.7-4.2 [place] 480482-07-25 08:03:00 Test Item Value Reference Range Interpretation Comments A/G Ratio (test code = A/G Ratio) 0.9 1 0.7-1.6 [place] 480482-07-25 08:03:00 Test Item Value Reference Range Interpretation Comments ALT (test code = ALT) 19 See_Comment [Auto mated message] The system which ge nerated this result transmit lavon reference range : <=65. The reference range was not used to interpr et this result as dionne l/abnormal. [facility] [employer] [id number] 08:03:00 Test Item Value Reference Range Interpretation Comments AST (test code = AST) 26 See_Comment [Auto mated message] The system which ge nerated this result transmit lavon reference range : <=37. The reference range was not used to interpr et this result as dionne l/abnormal. [facility] [id number] 08:03:00 Test Item Value Reference Range Interpretation Comments Alk Phos (test code = Alk Phos) 56 39-136 [facility] [id number] 08:03:00 Test Item Value Reference Range Interpretation Comments Bili Total (test code = Bili Total) 1.0 0.2-1.3 [facility] KJCOT1029-06-25 08:03:00 Test Item Value Reference Range Interpretation Comments eGFR (test code = eGFR) 67 [facility] [id number] 08:03:00 Test Item Value Reference Range Interpretation Comments Magnesium Lvl (test code = Magnesium 1.9 1.8-2.4 Lvl) [facility] TGSQE8633-97-11 08:03:00 Test Item Value Reference Range Interpretation Comments Procalcitonin Lvl (test no gt See_Comment [Au tomated message] code = Procalcitonin Lvl) Th e system which generated this result transmitted ref erence range: <=0.10. The reference range was not used to interpr et this result as normal/abnormal . [facility] [id number] 08:03:00 Test Item Value Reference Range Interpretation Comments LDH (test code = LDH) 354 98-192 [facility] HospitalEctlsmhGVNJNKVLON5411-29-17 08:03:00 Test Item Value Reference Range Interpretation Comments WBC (test code = WBC) 7.5 3.7-10.4 [facility] HospitalVjcblcjIVRKQRSZTJ9831-87-05 08:03:00 Test Item Value Reference Range Interpretation Comments RBC (test code = RBC) 3.44 4.20-5.40 [facility] HospitalEmmerxqEWXBCWYZTL9147-13-77 08:03:00 Test Item Value Reference Range Interpretation Comments Hgb (test code = Hgb) 8.3 12.0-16.0 [facility] [facility]yo[facility]elJYFNQGXXCV0501-97-33 08:03:00 Test Item Value Reference Range Interpretation Comments Hct (test code = Hct) 26.2 36.0-48.0 [facility] CampusCnhyfjvZPHIKTNPYX3609-33-15 08:03:00 Test Item Value Reference Range Interpretation Comments MCV (test code = MCV) 76.1 80.0-98.0 [place] 325412-07-25 08:03:00 Test Item Value Reference Range Interpretation Comments MCH (test code = MCH) 24.0 pg 27.0-31.0 [facility] CampusQzhjjuiYRYXVVHBPW7386-27-82 08:03:00 Test Item Value Reference Range Interpretation Comments MCHC (test code = MCHC) 31.6 32.0-36.0 [facility] CampusHxdqviyTZRIEYXWJA4096-86-48 08:03:00 Test Item Value Reference Range Interpretation Comments RDW (test code = RDW) 20.9 11.5-14.5 [facility] CampusFpcphogRQQXRJVUMB1064-69-41 08:03:00 Test Item Value Reference Range Interpretation Comments Platelet (test code = Platelet) 289 133-450 [facility] CampusIzucbxyZTIKBSLSPZ6040-43-19 08:03:00 Test Item Value Reference Range Interpretation Comments MPV (test code = MPV) 7.5 7.4-10.4 [facility] CampusIgbpskrVPTCVZXKUX7325-05-06 08:03:00 Test Item Value Reference Range Interpretation Comments Segs (test code = Segs) 94.0 45.0-75.0 [facility] CampusQvcrlztXXKFQUZVGM9855-73-80 08:03:00 Test Item Value Reference Range Interpretation Comments Lymphocytes (test code = Lymphocytes) 4.3 20.0-40.0 [facility] CampusPdxuxpeASWNVVCGVY4614-08-70 08:03:00 Test Item Value Reference Range Interpretation Comments Monocytes (test code = Monocytes) 1.6 2.0-12.0 [place] 325412-07-25 08:03:00 Test Item Value Reference Range Interpretation Comments Basophils (test code = 0.1 See_Comment [Aut omated message] The Basophils) system which ge nerated this result tra nsmitted reference range : <=1.0. The reference r hugo was not used to int erpret this result as normal/abnormal . [facility] CampusWmdzkymWWXCVESGIE9154-74-22 08:03:00 Test Item Value Reference Range Interpretation Comments Neutrophils # (test code = Neutrophils 7.0 1.5-8.1 #) [facility]RjadeaePORCZFXJDZ7054-46-71 08:03:00 Test Item Value Reference Range Interpretation Comments Lymphocytes # (test code = Lymphocytes 0.3 1.0-5.5 #) [facility]XhzchgxEM[facility]EUWRHN8387-92-09 08:03:00 Test Item Value Reference Range Interpretation Comments Monocytes # (test code 0.1 See_Comment [Aut omated message] The = Monocytes #) system which generated this result tra nsmitted reference range : <=0.8. The reference r hugo was not used to int erpret this result as normal/abnormal . [facility] CenterBteyqplNUQXXUFADD6933-98-46 08:03:00 Test Item Value Reference Range Interpretation Comments Microcyte (test code = 1+ *ABN*(06/13/22 Microcyte) 3:03 AM) [facility]ACT[facility] [id number] 08:03:00 Test Item Value Reference Range Interpretation Comments HS Troponin I 1 Hr (test code = HS 50 Troponin I 1 Hr) [facility]ACT[facility] [id number] 08:03:00 Test Item Value Reference Range Interpretation Comments HS Troponin I 0 to 1 See Note 5(06/13/22 Hour Delta (test code = 3:03 AM) HS Troponin I 0 to 1 Hour Delta) [facility] [employer] Alert2022-07-25 08:03:00 Test Item Value Reference Range Interpretation Comments Glucose Lvl (test code = Glucose Lvl) 142 70-99 [facility] [employer] Alert2022-07-25 08:03:00 Test Item Value Reference Range Interpretation Comments BUN (test code = BUN) 21 06-10 [facility] [employer] [facility]2022-07-25 08:03:00 Test Item Value Reference Range Interpretation Comments Creatinine Lvl (test code = Creatinine 0.84 0.50-1.40 Lvl) [facility] [employer] Alert2022-07-25 08:03:00 Test Item Value Reference Range Interpretation Comments Sodium Lvl (test code = Sodium Lvl) 133 135-145 [facility] [employer] Alert2022-07-25 08:03:00 Test Item Value Reference Range Interpretation Comments Potassium Lvl (test code = Potassium 4.4 3.5-5.1 Lvl) [facility] [employer] Alert2022-07-25 08:03:00 Test Item Value Reference Range Interpretation Comments Chloride Lvl (test code = Chloride Lvl) 98 95-109 [place] 480482-07-25 08:03:00 Test Item Value Reference Range Interpretation Comments CO2 (test code = CO2) 25 24-32 [place] [address]-07-25 08:03:00 Test Item Value Reference Range Interpretation Comments AGAP (test code = AGAP) 14.4 10.0-20.0 [place] 480482-07-25 08:03:00 Test Item Value Reference Range Interpretation Comments Calcium Lvl (test code = Calcium Lvl) 9.1 8.5-10.5 [place] [address]-07-25 08:03:00 Test Item Value Reference Range Interpretation Comments B/C Ratio (test code = B/C Ratio) 25 1 6-25 [place] 480482-07-25 08:03:00 Test Item Value Reference Range Interpretation Comments Total Protein (test code = Total 6.7 6.4-8.4 Protein) [place] 480482-07-25 08:03:00 Test Item Value Reference Range Interpretation Comments Albumin Lvl (test code = Albumin Lvl) 3.2 3.5-5.0 [place] [address]-07-25 08:03:00 Test Item Value Reference Range Interpretation Comments Globulin (test code = Globulin) 3.5 2.7-4.2 [place] [address]-07-25 08:03:00 Test Item Value Reference Range Interpretation Comments A/G Ratio (test code = A/G Ratio) 0.9 1 0.7-1.6 [place] 480482-07-25 08:03:00 Test Item Value Reference Range Interpretation Comments ALT (test code = ALT) 19 See_Comment [Auto mated message] The system which ge nerated this result transmit lavon reference range : <=65. The reference range was not used to interpr et this result as dionne l/abnormal. [place] 480482-07-25 08:03:00 Test Item Value Reference Range Interpretation Comments AST (test code = AST) 26 See_Comment [Auto mated message] The system which ge nerated this result transmit lavon reference range : <=37. The reference range was not used to interpr et this result as dionne l/abnormal. [facility] [id number] 08:03:00 Test Item Value Reference Range Interpretation Comments Alk Phos (test code = Alk Phos) 56 39-136 [facility] [id number] 08:03:00 Test Item Value Reference Range Interpretation Comments Bili Total (test code = Bili Total) 1.0 0.2-1.3 [place] 480482-07-25 08:03:00 Test Item Value Reference Range Interpretation Comments eGFR (test code = eGFR) 67 [place] 480482-07-25 08:03:00 Test Item Value Reference Range Interpretation Comments Magnesium Lvl (test code = Magnesium 1.9 1.8-2.4 Lvl) [place] 480482-07-25 08:03:00 Test Item Value Reference Range Interpretation Comments Procalcitonin Lvl (test no gt See_Comment [Au tomated message] code = Procalcitonin Lvl) e system which generated this result transmitted ref erence range: <=0.10. The reference range was not used to interpr et this result as normal/abnormal . [facility] [id number] 08:03:00 Test Item Value Reference Range Interpretation Comments LDH (test code = LDH) 354 98-192 [facility] CampusEkctaezEZKGHYACGU0096-52-90 08:03:00 Test Item Value Reference Range Interpretation Comments WBC (test code = WBC) 7.5 3.7-10.4 [place] 325412-07-25 08:03:00 Test Item Value Reference Range Interpretation Comments RBC (test code = RBC) 3.44 4.20-5.40 [place] 325412-07-25 08:03:00 Test Item Value Reference Range Interpretation Comments Hgb (test code = Hgb) 8.3 12.0-16.0 [place] [address]-07-25 08:03:00 Test Item Value Reference Range Interpretation Comments Hct (test code = Hct) 26.2 36.0-48.0 [place] [address]-07-25 08:03:00 Test Item Value Reference Range Interpretation Comments MCV (test code = MCV) 76.1 80.0-98.0 [place] [address]-07-25 08:03:00 Test Item Value Reference Range Interpretation Comments MCH (test code = MCH) 24.0 pg 27.0-31.0 [facility] CampusKhrbobzIWAMROOUIH5394-97-22 08:03:00 Test Item Value Reference Range Interpretation Comments MCHC (test code = MCHC) 31.6 32.0-36.0 [facility] CampusRbsgpkrAXEMXHEHGQ0538-40-61 08:03:00 Test Item Value Reference Range Interpretation Comments RDW (test code = RDW) 20.9 11.5-14.5 [facility] CampusLinaittOSAXZLRUUL2882-61-42 08:03:00 Test Item Value Reference Range Interpretation Comments Platelet (test code = Platelet) 289 133-450 [facility] CampusWicczfkYWNNGFTFUA9355-67-77 08:03:00 Test Item Value Reference Range Interpretation Comments MPV (test code = MPV) 7.5 7.4-10.4 [facility] CampusLnalgrgSLGPCNKKAW0295-00-03 08:03:00 Test Item Value Reference Range Interpretation Comments Segs (test code = Segs) 94.0 45.0-75.0 [facility] CampusRbnetrgMBTSNITYPA3993-32-72 08:03:00 Test Item Value Reference Range Interpretation Comments Lymphocytes (test code = Lymphocytes) 4.3 20.0-40.0 [facility] CampusNpdaqdvRGDRRYTWFM7506-74-91 08:03:00 Test Item Value Reference Range Interpretation Comments Monocytes (test code = Monocytes) 1.6 2.0-12.0 [facility] CampusDlhnzueINSZUBAPTP4010-81-13 08:03:00 Test Item Value Reference Range Interpretation Comments Basophils (test code = 0.1 See_Comment [Aut omated message] The Basophils) system which ge nerated this result tra nsmitted reference range : <=1.0. The reference r hugo was not used to int erpret this result as normal/abnormal . [facility] CampusImnrucbFNTVITEVJP4311-70-05 08:03:00 Test Item Value Reference Range Interpretation Comments Neutrophils # (test code = Neutrophils 7.0 1.5-8.1 #) [facility] CampusPhdzefpVYHZNIPCEM2185-16-78 08:03:00 Test Item Value Reference Range Interpretation Comments Lymphocytes # (test code = Lymphocytes 0.3 1.0-5.5 #) [facility] CampusUvlkwfbUYAANMPGHY9741-76-00 08:03:00 Test Item Value Reference Range Interpretation Comments Monocytes # (test code 0.1 See_Comment [Aut omated message] The = Monocytes #) system which generated this result tra nsmitted reference range : <=0.8. The reference r hugo was not used to int erpret this result as normal/abnormal . [facility] HospitalXrwexcoTALQJPMFAS7263-15-18 08:03:00 Test Item Value Reference Range Interpretation Comments Microcyte (test code = 1+ *ABN*(06/13/22 Microcyte) 3:03 AM) [facility] CenterGnodal [id number] 08:03:00 Test Item Value Reference Range Interpretation Comments HS Troponin I 1 Hr (test code = HS 50 Troponin I 1 Hr) [facility]ACT[facility] [id number] 08:03:00 Test Item Value Reference Range Interpretation Comments HS Troponin I 0 to 1 See Note 5(06/13/22 Hour Delta (test code = 3:03 AM) HS Troponin I 0 to 1 Hour Delta) [facility] CenterCloudstaff [id number] 08:03:00 Test Item Value Reference Range Interpretation Comments Glucose Lvl (test code = Glucose Lvl) 142 70-99 [facility] [id number] 08:03:00 Test Item Value Reference Range Interpretation Comments BUN (test code = BUN) 21 -22 [facility] [id number] 08:03:00 Test Item Value Reference Range Interpretation Comments Creatinine Lvl (test code = Creatinine 0.84 0.50-1.40 Lvl) [facility] [id number] 08:03:00 Test Item Value Reference Range Interpretation Comments Sodium Lvl (test code = Sodium Lvl) 133 135-145 [facility] [id number] 08:03:00 Test Item Value Reference Range Interpretation Comments Potassium Lvl (test code = Potassium 4.4 3.5-5.1 Lvl) [facility] [id number] 08:03:00 Test Item Value Reference Range Interpretation Comments Chloride Lvl (test code = Chloride Lvl) 98 95-109 [facility] [id number] 08:03:00 Test Item Value Reference Range Interpretation Comments CO2 (test code = CO2) 25 24-32 [facility] [id number] 08:03:00 Test Item Value Reference Range Interpretation Comments AGAP (test code = AGAP) 14.4 10.0-20.0 [place] 480482-07-25 08:03:00 Test Item Value Reference Range Interpretation Comments Calcium Lvl (test code = Calcium Lvl) 9.1 8.5-10.5 [place] 480482-07-25 08:03:00 Test Item Value Reference Range Interpretation Comments B/C Ratio (test code = B/C Ratio) 25 1 6-25 [facility] CenterIRIS.TVDAV[place] [id number] 08:03:00 Test Item Value Reference Range Interpretation Comments Total Protein (test code = Total 6.7 6.4-8.4 Protein) [place] 480482-07-25 08:03:00 Test Item Value Reference Range Interpretation Comments Albumin Lvl (test code = Albumin Lvl) 3.2 3.5-5.0 [place] 480482-07-25 08:03:00 Test Item Value Reference Range Interpretation Comments Globulin (test code = Globulin) 3.5 2.7-4.2 [facility] [id number] 08:03:00 Test Item Value Reference Range Interpretation Comments A/G Ratio (test code = A/G Ratio) 0.9 1 0.7-1.6 [facility] [id number] 08:03:00 Test Item Value Reference Range Interpretation Comments ALT (test code = ALT) 19 See_Comment [Auto mated message] The system which ge nerated this result transmit lavon reference range : <=65. The reference range was not used to interpr et this result as dionne l/abnormal. [facility] [id number] 08:03:00 Test Item Value Reference Range Interpretation Comments AST (test code = AST) 26 See_Comment [Auto mated message] The system which ge nerated this result transmit lavon reference range : <=37. The reference range was not used to interpr et this result as dionne l/abnormal. [facility] [id number] 08:03:00 Test Item Value Reference Range Interpretation Comments Alk Phos (test code = Alk Phos) 56 39-136 [facility] [id number] 08:03:00 Test Item Value Reference Range Interpretation Comments Bili Total (test code = Bili Total) 1.0 0.2-1.3 [facility]2022-07-25 08:03:00 Test Item Value Reference Range Interpretation Comments eGFR (test code = eGFR) 67 [facility]2022-07-25 08:03:00 Test Item Value Reference Range Interpretation Comments Magnesium Lvl (test code = Magnesium 1.9 1.8-2.4 Lvl) [place] 480482-07-25 08:03:00 Test Item Value Reference Range Interpretation Comments Procalcitonin Lvl (test no gt See_Comment [Au tomated message] code = Procalcitonin Lvl) e system which generated this result transmitted ref erence range: <=0.10. The reference range was not used to interpr et this result as normal/abnormal . [facility]2022-07-25 08:03:00 Test Item Value Reference Range Interpretation Comments LDH (test code = LDH) 354 98-192 [facility] C[id number] 08:03:00 Test Item Value Reference Range Interpretation Comments WBC (test code = WBC) 7.5 3.7-10.4 [place] 325412-07-25 08:03:00 Test Item Value Reference Range Interpretation Comments RBC (test code = RBC) 3.44 4.20-5.40 [place] 325412-07-25 08:03:00 Test Item Value Reference Range Interpretation Comments Hgb (test code = Hgb) 8.3 12.0-16.0 [place] 325412-07-25 08:03:00 Test Item Value Reference Range Interpretation Comments Hct (test code = Hct) 26.2 36.0-48.0 [place] [address]-07-25 08:03:00 Test Item Value Reference Range Interpretation Comments MCV (test code = MCV) 76.1 80.0-98.0 [place] [address]-07-25 08:03:00 Test Item Value Reference Range Interpretation Comments MCH (test code = MCH) 24.0 pg 27.0-31.0 [place] 325412-07-25 08:03:00 Test Item Value Reference Range Interpretation Comments MCHC (test code = MCHC) 31.6 32.0-36.0 [place] 325412-07-25 08:03:00 Test Item Value Reference Range Interpretation Comments RDW (test code = RDW) 20.9 11.5-14.5 [place] 325412-07-25 08:03:00 Test Item Value Reference Range Interpretation Comments Platelet (test code = Platelet) 289 133-450 [place] 325412-07-25 08:03:00 Test Item Value Reference Range Interpretation Comments MPV (test code = MPV) 7.5 7.4-10.4 [place] 325412-07-25 08:03:00 Test Item Value Reference Range Interpretation Comments Segs (test code = Segs) 94.0 45.0-75.0 [place] [address]-07-25 08:03:00 Test Item Value Reference Range Interpretation Comments Lymphocytes (test code = Lymphocytes) 4.3 20.0-40.0 [place] [address]-07-25 08:03:00 Test Item Value Reference Range Interpretation Comments Monocytes (test code = Monocytes) 1.6 2.0-12.0 [place] 325412-07-25 08:03:00 Test Item Value Reference Range Interpretation Comments Basophils (test code = 0.1 See_Comment [Aut omated message] The Basophils) system which ge nerated this result tra nsmitted reference range : <=1.0. The reference r hugo was not used to int erpret this result as normal/abnormal . [place] 325412-07-25 08:03:00 Test Item Value Reference Range Interpretation Comments Neutrophils # (test code = Neutrophils 7.0 1.5-8.1 #) [place] 325412-07-25 08:03:00 Test Item Value Reference Range Interpretation Comments Lymphocytes # (test code = Lymphocytes 0.3 1.0-5.5 #) [place] [address]-07-25 08:03:00 Test Item Value Reference Range Interpretation Comments Monocytes # (test code 0.1 See_Comment [Aut omated message] The = Monocytes #) system which generated this result tra nsmitted reference range : <=0.8. The reference r hugo was not used to int erpret this result as normal/abnormal . [place] 325412-07-25 08:03:00 Test Item Value Reference Range Interpretation Comments Microcyte (test code = 1+ *ABN*(06/13/22 Microcyte) 3:03 AM) [facility] [employer] [id number] 08:03:00 Test Item Value Reference Range Interpretation Comments HS Troponin I 1 Hr (test code = HS 50 Troponin I 1 Hr) [facility] [id number] 08:03:00 Test Item Value Reference Range Interpretation Comments HS Troponin I 0 to 1 See Note 5(06/13/22 Hour Delta (test code = 3:03 AM) HS Troponin I 0 to 1 Hour Delta) [facility] [employer] [id number] 08:03:00 Test Item Value Reference Range Interpretation Comments Glucose Lvl (test code = Glucose Lvl) 142 70-99 [facility] [employer] [id number] 08:03:00 Test Item Value Reference Range Interpretation Comments BUN (test code = BUN) 21 - [facility] [id number] 08:03:00 Test Item Value Reference Range Interpretation Comments Creatinine Lvl (test code = Creatinine 0.84 0.50-1.40 Lvl) [facility] [employer] [id number] 08:03:00 Test Item Value Reference Range Interpretation Comments Sodium Lvl (test code = Sodium Lvl) 133 135-145 [facility] [employer] [id number] 08:03:00 Test Item Value Reference Range Interpretation Comments Potassium Lvl (test code = Potassium 4.4 3.5-5.1 Lvl) [facility] [employer] [id number] 08:03:00 Test Item Value Reference Range Interpretation Comments Chloride Lvl (test code = Chloride Lvl) 98 95-109 [facility] [employer] [id number] 08:03:00 Test Item Value Reference Range Interpretation Comments CO2 (test code = CO2) 25 24-32 [facility] [employer] [id number] 08:03:00 Test Item Value Reference Range Interpretation Comments AGAP (test code = AGAP) 14.4 10.0-20.0 [facility] [employer] [id number] 08:03:00 Test Item Value Reference Range Interpretation Comments Calcium Lvl (test code = Calcium Lvl) 9.1 8.5-10.5 [facility] [employer]2022-07-25 08:03:00 Test Item Value Reference Range Interpretation Comments B/C Ratio (test code = B/C Ratio) 25 1 6-25 [place] 480482-07-25 08:03:00 Test Item Value Reference Range Interpretation Comments Total Protein (test code = Total 6.7 6.4-8.4 Protein) [place] [address]-07-25 08:03:00 Test Item Value Reference Range Interpretation Comments Albumin Lvl (test code = Albumin Lvl) 3.2 3.5-5.0 [place] 480482-07-25 08:03:00 Test Item Value Reference Range Interpretation Comments Globulin (test code = Globulin) 3.5 2.7-4.2 [place] [address]-07-25 08:03:00 Test Item Value Reference Range Interpretation Comments A/G Ratio (test code = A/G Ratio) 0.9 1 0.7-1.6 [place] [address]-07-25 08:03:00 Test Item Value Reference Range Interpretation Comments ALT (test code = ALT) 19 See_Comment [Auto mated message] The system which ge nerated this result transmit lavon reference range : <=65. The reference range was not used to interpr et this result as dionne l/abnormal. [place] 480482-07-25 08:03:00 Test Item Value Reference Range Interpretation Comments AST (test code = AST) 26 See_Comment [Auto mated message] The system which ge nerated this result transmit lavon reference range : <=37. The reference range was not used to interpr et this result as dionne l/abnormal. [place] 480482-07-25 08:03:00 Test Item Value Reference Range Interpretation Comments Alk Phos (test code = Alk Phos) 56 39-136 [place] 480482-07-25 08:03:00 Test Item Value Reference Range Interpretation Comments Bili Total (test code = Bili Total) 1.0 0.2-1.3 [place] 480482-07-25 08:03:00 Test Item Value Reference Range Interpretation Comments eGFR (test code = eGFR) 67 [place] 480482-07-25 08:03:00 Test Item Value Reference Range Interpretation Comments Magnesium Lvl (test code = Magnesium 1.9 1.8-2.4 Lvl) [facility] [id number] 08:03:00 Test Item Value Reference Range Interpretation Comments Procalcitonin Lvl (test no gt See_Comment [Au tomated message] code = Procalcitonin Lvl) e system which generated this result transmitted ref erence range: <=0.10. The reference range was not used to interpr et this result as normal/abnormal . [facility] [id number] 08:03:00 Test Item Value Reference Range Interpretation Comments LDH (test code = LDH) 354 98-192 [facility] CampusOzkigedNYOSYKINKG2258-12-82 08:03:00 Test Item Value Reference Range Interpretation Comments WBC (test code = WBC) 7.5 3.7-10.4 [facility] CampusZjikpekNCAYLZWGPQ2145-55-01 08:03:00 Test Item Value Reference Range Interpretation Comments RBC (test code = RBC) 3.44 4.20-5.40 [facility] CampusIzcrgnyVGILPNGPDM4127-31-20 08:03:00 Test Item Value Reference Range Interpretation Comments Hgb (test code = Hgb) 8.3 12.0-16.0 [facility] CampusJibxepjQLZKNHHQMK4247-23-97 08:03:00 Test Item Value Reference Range Interpretation Comments Hct (test code = Hct) 26.2 36.0-48.0 [facility] CampusVxrqoytNDBFKDAUPL9882-00-91 08:03:00 Test Item Value Reference Range Interpretation Comments MCV (test code = MCV) 76.1 80.0-98.0 [facility] CampusJzwvezoFPTJCTXRYX8286-56-34 08:03:00 Test Item Value Reference Range Interpretation Comments MCH (test code = MCH) 24.0 pg 27.0-31.0 [facility] CampusPngvmqnERRAGUAINY7030-82-43 08:03:00 Test Item Value Reference Range Interpretation Comments MCHC (test code = MCHC) 31.6 32.0-36.0 [facility] CampusGqnebvbLAFXJFUECJ2706-60-88 08:03:00 Test Item Value Reference Range Interpretation Comments RDW (test code = RDW) 20.9 11.5-14.5 [facility] CampusVuxpejyMVGZTILEVN0686-10-23 08:03:00 Test Item Value Reference Range Interpretation Comments Platelet (test code = Platelet) 289 133-450 [facility] CampusCpbsitcSEKTVJAJEL9544-86-33 08:03:00 Test Item Value Reference Range Interpretation Comments MPV (test code = MPV) 7.5 7.4-10.4 [facility]CjsrntlDSZBTZWLKD1980-43-79 08:03:00 Test Item Value Reference Range Interpretation Comments Segs (test code = Segs) 94.0 45.0-75.0 [facility]QqooigkMRHCLMMBWE1153-76-52 08:03:00 Test Item Value Reference Range Interpretation Comments Lymphocytes (test code = Lymphocytes) 4.3 20.0-40.0 [facility] HospitalJnydevwQFZIVXYSQY3470-26-04 08:03:00 Test Item Value Reference Range Interpretation Comments Monocytes (test code = Monocytes) 1.6 2.0-12.0 [facility] HospitalCgiercjVIKGWXWHNG0607-25-77 08:03:00 Test Item Value Reference Range Interpretation Comments Basophils (test code = 0.1 See_Comment [Aut omated message] The Basophils) system which ge nerated this result tra nsmitted reference range : <=1.0. The reference r hugo was not used to int erpret this result as normal/abnormal . [facility] HospitalZldwtpcTGFXHBRHCS1346-64-39 08:03:00 Test Item Value Reference Range Interpretation Comments Neutrophils # (test code = Neutrophils 7.0 1.5-8.1 #) [facility] HospitalRvhhubkLKFBPEFAYE1685-58-56 08:03:00 Test Item Value Reference Range Interpretation Comments Lymphocytes # (test code = Lymphocytes 0.3 1.0-5.5 #) [facility] HospitalNlhwxxvUWOAJOVDTI8087-97-02 08:03:00 Test Item Value Reference Range Interpretation Comments Monocytes # (test code 0.1 See_Comment [Aut omated message] The = Monocytes #) system which generated this result tra nsmitted reference range : <=0.8. The reference r hugo was not used to int erpret this result as normal/abnormal . [facility] CenterAqgagloEMLQDZDCKY7456-85-05 08:03:00 Test Item Value Reference Range Interpretation Comments Microcyte (test code = 1+ *ABN*(06/13/22 Microcyte) 3:03 AM) [facility] CenterJimmy [facility]ly[facility] 08:03:00 Test Item Value Reference Range Interpretation Comments HS Troponin I 1 Hr (test code = HS 50 Troponin I 1 Hr) [facility] CenterGnodal DVMGYRP0016-44-78 08:03:00 Test Item Value Reference Range Interpretation Comments HS Troponin I 0 to 1 See Note 5(06/13/22 Hour Delta (test code = 3:03 AM) HS Troponin I 0 to 1 Hour Delta) [place] 480482-07-25 08:03:00 Test Item Value Reference Range Interpretation Comments Glucose Lvl (test code = Glucose Lvl) 142 70-99 [place] 480482-07-25 08:03:00 Test Item Value Reference Range Interpretation Comments BUN (test code = BUN) 21 06-10 [place] 480482-07-25 08:03:00 Test Item Value Reference Range Interpretation Comments Creatinine Lvl (test code = Creatinine 0.84 0.50-1.40 Lvl) [place] 480482-07-25 08:03:00 Test Item Value Reference Range Interpretation Comments Sodium Lvl (test code = Sodium Lvl) 133 135-145 [place] 480482-07-25 08:03:00 Test Item Value Reference Range Interpretation Comments Potassium Lvl (test code = Potassium 4.4 3.5-5.1 Lvl) [place] 480482-07-25 08:03:00 Test Item Value Reference Range Interpretation Comments Chloride Lvl (test code = Chloride Lvl) 98 95-109 [place] 480482-07-25 08:03:00 Test Item Value Reference Range Interpretation Comments CO2 (test code = CO2) 25 24-32 [place] 480482-07-25 08:03:00 Test Item Value Reference Range Interpretation Comments AGAP (test code = AGAP) 14.4 10.0-20.0 [place] 480482-07-25 08:03:00 Test Item Value Reference Range Interpretation Comments Calcium Lvl (test code = Calcium Lvl) 9.1 8.5-10.5 [place] 480482-07-25 08:03:00 Test Item Value Reference Range Interpretation Comments B/C Ratio (test code = B/C Ratio) 25 1 -25 [place] 480482-07-25 08:03:00 Test Item Value Reference Range Interpretation Comments Total Protein (test code = Total 6.7 6.4-8.4 Protein) [place] 480482-07-25 08:03:00 Test Item Value Reference Range Interpretation Comments Albumin Lvl (test code = Albumin Lvl) 3.2 3.5-5.0 [place] 480482-07-25 08:03:00 Test Item Value Reference Range Interpretation Comments Globulin (test code = Globulin) 3.5 2.7-4.2 [place] 480482-07-25 08:03:00 Test Item Value Reference Range Interpretation Comments A/G Ratio (test code = A/G Ratio) 0.9 1 0.7-1.6 [place] 480482-07-25 08:03:00 Test Item Value Reference Range Interpretation Comments ALT (test code = ALT) 19 See_Comment [Auto mated message] The system which ge nerated this result transmit lavon reference range : <=65. The reference range was not used to interpr et this result as dionne l/abnormal. [place] [address]-07-25 08:03:00 Test Item Value Reference Range Interpretation Comments AST (test code = AST) 26 See_Comment [Auto mated message] The system which ge nerated this result transmit lavon reference range : <=37. The reference range was not used to interpr et this result as dionne l/abnormal. [place] 480482-07-25 08:03:00 Test Item Value Reference Range Interpretation Comments Alk Phos (test code = Alk Phos) 56 39-136 [place] [address]-07-25 08:03:00 Test Item Value Reference Range Interpretation Comments Bili Total (test code = Bili Total) 1.0 0.2-1.3 [place] [address]-07-25 08:03:00 Test Item Value Reference Range Interpretation Comments eGFR (test code = eGFR) 67 [place] [address]-07-25 08:03:00 Test Item Value Reference Range Interpretation Comments Magnesium Lvl (test code = Magnesium 1.9 1.8-2.4 Lvl) [place] [address]-07-25 08:03:00 Test Item Value Reference Range Interpretation Comments Procalcitonin Lvl (test no gt See_Comment [Au tomated message] code = Procalcitonin Lvl) Th e system which generated this result transmitted ref erence range: <=0.10. The reference range was not used to interpr et this result as normal/abnormal . [facility]2022-07-25 08:03:00 Test Item Value Reference Range Interpretation Comments LDH (test code = LDH) 354 98-192 [facility] CampusIawdqcxPWPZCRUFCT6774-02-75 08:03:00 Test Item Value Reference Range Interpretation Comments WBC (test code = WBC) 7.5 3.7-10.4 [facility] CampusLfwarzeFDQCKUGKAC3782-00-64 08:03:00 Test Item Value Reference Range Interpretation Comments RBC (test code = RBC) 3.44 4.20-5.40 [facility] CampusUpdksxzWJPSLRCKAH8799-77-15 08:03:00 Test Item Value Reference Range Interpretation Comments Hgb (test code = Hgb) 8.3 12.0-16.0 [facility] CampusDqsocuhKENRBRPADQ4423-53-42 08:03:00 Test Item Value Reference Range Interpretation Comments Hct (test code = Hct) 26.2 36.0-48.0 [facility] CampusGeopruhVERUQRQCYH4234-30-82 08:03:00 Test Item Value Reference Range Interpretation Comments MCV (test code = MCV) 76.1 80.0-98.0 [facility] CampusVptipdoYZSLPDNMXB4045-81-92 08:03:00 Test Item Value Reference Range Interpretation Comments MCH (test code = MCH) 24.0 pg 27.0-31.0 [facility] CampusIjyfzwsTPAFGTCENO3440-18-73 08:03:00 Test Item Value Reference Range Interpretation Comments MCHC (test code = MCHC) 31.6 32.0-36.0 [facility] CampusFaxsicrXQRALYUFEI0361-93-79 08:03:00 Test Item Value Reference Range Interpretation Comments RDW (test code = RDW) 20.9 11.5-14.5 [facility] CampusMeqqznsLASLAHJRIY2371-76-63 08:03:00 Test Item Value Reference Range Interpretation Comments Platelet (test code = Platelet) 289 133-450 [facility] CampusFndvwubBSYAZEUPKO5166-22-02 08:03:00 Test Item Value Reference Range Interpretation Comments MPV (test code = MPV) 7.5 7.4-10.4 [facility] CampusUlfemfrHSVBYWIUQY9943-61-17 08:03:00 Test Item Value Reference Range Interpretation Comments Segs (test code = Segs) 94.0 45.0-75.0 [facility] CampusGgkoriaRYUIZJJGGA9917-31-46 08:03:00 Test Item Value Reference Range Interpretation Comments Lymphocytes (test code = Lymphocytes) 4.3 20.0-40.0 [facility] CampusTbkflgqISRVTPRCEW4080-41-58 08:03:00 Test Item Value Reference Range Interpretation Comments Monocytes (test code = Monocytes) 1.6 2.0-12.0 [facility] CampusSvnwsksXOCMTNUXXE6610-96-21 08:03:00 Test Item Value Reference Range Interpretation Comments Basophils (test code = 0.1 See_Comment [Aut omated message] The Basophils) system which ge nerated this result tra nsmitted reference range : <=1.0. The reference r hugo was not used to int erpret this result as normal/abnormal . [facility] CampusOmecnkgUFGQBTBDEK7418-11-65 08:03:00 Test Item Value Reference Range Interpretation Comments Neutrophils # (test code = Neutrophils 7.0 1.5-8.1 #) [facility] CampusDoxwbfpUMJKUMRAAS4416-75-43 08:03:00 Test Item Value Reference Range Interpretation Comments Lymphocytes # (test code = Lymphocytes 0.3 1.0-5.5 #) [facility] CampusLxuobpdZUVQOXJHNC6519-24-17 08:03:00 Test Item Value Reference Range Interpretation Comments Monocytes # (test code 0.1 See_Comment [Aut omated message] The = Monocytes #) system which generated this result tra nsmitted reference range : <=0.8. The reference r hugo was not used to int erpret this result as normal/abnormal . [facility] CampusGghkgqoKBGXYJMUUN9392-01-11 08:03:00 Test Item Value Reference Range Interpretation Comments Microcyte (test code = 1+ *ABN*(06/13/22 Microcyte) 3:03 AM) [facility] HospitalMister Spex FMXCJRW9900-41-95 08:03:00 Test Item Value Reference Range Interpretation Comments HS Troponin I 1 Hr (test code = HS 50 Troponin I 1 Hr) [facility] JHTJYLA3799-55-34 08:03:00 Test Item Value Reference Range Interpretation Comments HS Troponin I 0 to 1 See Note 5(06/13/22 Hour Delta (test code = 3:03 AM) HS Troponin I 0 to 1 Hour Delta) [facility] ELIWD4982-11-72 08:03:00 Test Item Value Reference Range Interpretation Comments Glucose Lvl (test code = Glucose Lvl) 142 70-99 [place] 480482-07-25 08:03:00 Test Item Value Reference Range Interpretation Comments BUN (test code = BUN) 21 7-22 [place] 480482-07-25 08:03:00 Test Item Value Reference Range Interpretation Comments Creatinine Lvl (test code = Creatinine 0.84 0.50-1.40 Lvl) [facility]2022-07-25 08:03:00 Test Item Value Reference Range Interpretation Comments Sodium Lvl (test code = Sodium Lvl) 133 135-145 [place] 480482-07-25 08:03:00 Test Item Value Reference Range Interpretation Comments Potassium Lvl (test code = Potassium 4.4 3.5-5.1 Lvl) [place] 480482-07-25 08:03:00 Test Item Value Reference Range Interpretation Comments Chloride Lvl (test code = Chloride Lvl) 98 95-109 [place] 480482-07-25 08:03:00 Test Item Value Reference Range Interpretation Comments CO2 (test code = CO2) 25 24-32 [place] 480482-07-25 08:03:00 Test Item Value Reference Range Interpretation Comments AGAP (test code = AGAP) 14.4 10.0-20.0 [place] 480482-07-25 08:03:00 Test Item Value Reference Range Interpretation Comments Calcium Lvl (test code = Calcium Lvl) 9.1 8.5-10.5 [facility]2022-07-25 08:03:00 Test Item Value Reference Range Interpretation Comments B/C Ratio (test code = B/C Ratio) 25 1 6-25 [place] 480482-07-25 08:03:00 Test Item Value Reference Range Interpretation Comments Total Protein (test code = Total 6.7 6.4-8.4 Protein) [place] 480482-07-25 08:03:00 Test Item Value Reference Range Interpretation Comments Albumin Lvl (test code = Albumin Lvl) 3.2 3.5-5.0 [place] 480482-07-25 08:03:00 Test Item Value Reference Range Interpretation Comments Globulin (test code = Globulin) 3.5 2.7-4.2 [place] 480482-07-25 08:03:00 Test Item Value Reference Range Interpretation Comments A/G Ratio (test code = A/G Ratio) 0.9 1 0.7-1.6 [place] [address]-07-25 08:03:00 Test Item Value Reference Range Interpretation Comments ALT (test code = ALT) 19 See_Comment [Auto mated message] The system which ge nerated this result transmit lavon reference range : <=65. The reference range was not used to interpr et this result as dionne l/abnormal. [place] 480482-07-25 08:03:00 Test Item Value Reference Range Interpretation Comments AST (test code = AST) 26 See_Comment [Auto mated message] The system which ge nerated this result transmit lavon reference range : <=37. The reference range was not used to interpr et this result as dionne l/abnormal. [place] [address]-07-25 08:03:00 Test Item Value Reference Range Interpretation Comments Alk Phos (test code = Alk Phos) 56 39-136 [place] 480482-07-25 08:03:00 Test Item Value Reference Range Interpretation Comments Bili Total (test code = Bili Total) 1.0 0.2-1.3 [place] 480482-07-25 08:03:00 Test Item Value Reference Range Interpretation Comments eGFR (test code = eGFR) 67 [place] 480482-07-25 08:03:00 Test Item Value Reference Range Interpretation Comments Magnesium Lvl (test code = Magnesium 1.9 1.8-2.4 Lvl) [place] [address]-07-25 08:03:00 Test Item Value Reference Range Interpretation Comments Procalcitonin Lvl (test no gt See_Comment [Au tomated message] code = Procalcitonin Lvl) Th e system which generated this result transmitted ref erence range: <=0.10. The reference range was not used to interpr et this result as normal/abnormal . [place] 480482-07-25 08:03:00 Test Item Value Reference Range Interpretation Comments LDH (test code = LDH) 354 98-192 [facility] CampusRpyhkbbZPEWOYIQPY6818-95-31 08:03:00 Test Item Value Reference Range Interpretation Comments WBC (test code = WBC) 7.5 3.7-10.4 [place] 325412-07-25 08:03:00 Test Item Value Reference Range Interpretation Comments RBC (test code = RBC) 3.44 4.20-5.40 [place] 325412-07-25 08:03:00 Test Item Value Reference Range Interpretation Comments Hgb (test code = Hgb) 8.3 12.0-16.0 [place] 325412-07-25 08:03:00 Test Item Value Reference Range Interpretation Comments Hct (test code = Hct) 26.2 36.0-48.0 [place] 325412-07-25 08:03:00 Test Item Value Reference Range Interpretation Comments MCV (test code = MCV) 76.1 80.0-98.0 [place] 325412-07-25 08:03:00 Test Item Value Reference Range Interpretation Comments MCH (test code = MCH) 24.0 pg 27.0-31.0 [facility] CampusRhfuwowQMBJSRPVZC1945-82-63 08:03:00 Test Item Value Reference Range Interpretation Comments MCHC (test code = MCHC) 31.6 32.0-36.0 [facility] CampusBmmtymxABJXGMERJL5524-58-96 08:03:00 Test Item Value Reference Range Interpretation Comments RDW (test code = RDW) 20.9 11.5-14.5 [place] 325412-07-25 08:03:00 Test Item Value Reference Range Interpretation Comments Platelet (test code = Platelet) 289 133-450 [facility] CampusZnpavpjGZUDNWOHOS1604-07-38 08:03:00 Test Item Value Reference Range Interpretation Comments MPV (test code = MPV) 7.5 7.4-10.4 [place] 325412-07-25 08:03:00 Test Item Value Reference Range Interpretation Comments Segs (test code = Segs) 94.0 45.0-75.0 [place] 325412-07-25 08:03:00 Test Item Value Reference Range Interpretation Comments Lymphocytes (test code = Lymphocytes) 4.3 20.0-40.0 [place] 325412-07-25 08:03:00 Test Item Value Reference Range Interpretation Comments Monocytes (test code = Monocytes) 1.6 2.0-12.0 [place] 325412-07-25 08:03:00 Test Item Value Reference Range Interpretation Comments Basophils (test code = 0.1 See_Comment [Aut omated message] The Basophils) system which ge nerated this result tra nsmitted reference range : <=1.0. The reference r hugo was not used to int erpret this result as normal/abnormal . [facility] ScfwojvIGAMLPSJUR4807-76-26 08:03:00 Test Item Value Reference Range Interpretation Comments Neutrophils # (test code = Neutrophils 7.0 1.5-8.1 #) [facility] CenterYrrjbfsFXZFFJBXVQ7946-48-75 08:03:00 Test Item Value Reference Range Interpretation Comments Lymphocytes # (test code = Lymphocytes 0.3 1.0-5.5 #) [facility] CenterGnapgycJYOKIVRRAH1238-11-16 08:03:00 Test Item Value Reference Range Interpretation Comments Monocytes # (test code 0.1 See_Comment [Aut omated message] The = Monocytes #) system which generated this result tra nsmitted reference range : <=0.8. The reference r hugo was not used to int erpret this result as normal/abnormal . [facility] QgsuckzPTLCAZAMTO6310-59-15 08:03:00 Test Item Value Reference Range Interpretation Comments Microcyte (test code = 1+ *ABN*(06/13/22 Microcyte) 3:03 AM) [facility]2022-07-25 08:03:00 Test Item Value Reference Range Interpretation Comments HS Troponin I 1 Hr (test code = HS 50 Troponin I 1 Hr) [facility]2022-07-25 08:03:00 Test Item Value Reference Range Interpretation Comments HS Troponin I 0 to 1 See Note 5(06/13/22 Hour Delta (test code = 3:03 AM) HS Troponin I 0 to 1 Hour Delta) [facility] [employer] [id number] 08:03:00 Test Item Value Reference Range Interpretation Comments Glucose Lvl (test code = Glucose Lvl) 142 70-99 [facility] [employer]2022-07-25 08:03:00 Test Item Value Reference Range Interpretation Comments BUN (test code = BUN) 21 7- [facility] [employer] [id number] 08:03:00 Test Item Value Reference Range Interpretation Comments Creatinine Lvl (test code = Creatinine 0.84 0.50-1.40 Lvl) [place] 480482-07-25 08:03:00 Test Item Value Reference Range Interpretation Comments Sodium Lvl (test code = Sodium Lvl) 133 135-145 [place] 480482-07-25 08:03:00 Test Item Value Reference Range Interpretation Comments Potassium Lvl (test code = Potassium 4.4 3.5-5.1 Lvl) [place] 480482-07-25 08:03:00 Test Item Value Reference Range Interpretation Comments Chloride Lvl (test code = Chloride Lvl) 98 95-109 [place] 480482-07-25 08:03:00 Test Item Value Reference Range Interpretation Comments CO2 (test code = CO2) 25 24-32 [place] 480482-07-25 08:03:00 Test Item Value Reference Range Interpretation Comments AGAP (test code = AGAP) 14.4 10.0-20.0 [place] 480482-07-25 08:03:00 Test Item Value Reference Range Interpretation Comments Calcium Lvl (test code = Calcium Lvl) 9.1 8.5-10.5 [place] 480482-07-25 08:03:00 Test Item Value Reference Range Interpretation Comments B/C Ratio (test code = B/C Ratio) 25 1 6-25 [place] 480482-07-25 08:03:00 Test Item Value Reference Range Interpretation Comments Total Protein (test code = Total 6.7 6.4-8.4 Protein) [place] 480482-07-25 08:03:00 Test Item Value Reference Range Interpretation Comments Albumin Lvl (test code = Albumin Lvl) 3.2 3.5-5.0 [place] 480482-07-25 08:03:00 Test Item Value Reference Range Interpretation Comments Globulin (test code = Globulin) 3.5 2.7-4.2 [place] 480482-07-25 08:03:00 Test Item Value Reference Range Interpretation Comments A/G Ratio (test code = A/G Ratio) 0.9 1 0.7-1.6 [place] 480482-07-25 08:03:00 Test Item Value Reference Range Interpretation Comments ALT (test code = ALT) 19 See_Comment [Auto mated message] The system which ge nerated this result transmit lavon reference range : <=65. The reference range was not used to interpr et this result as dionne l/abnormal. [facility] [employer] [id number] 08:03:00 Test Item Value Reference Range Interpretation Comments AST (test code = AST) 26 See_Comment [Auto mated message] The system which ge nerated this result transmit lavon reference range : <=37. The reference range was not used to interpr et this result as dionne l/abnormal. [facility] [id number] 08:03:00 Test Item Value Reference Range Interpretation Comments Alk Phos (test code = Alk Phos) 56 39-136 [facility] [id number] 08:03:00 Test Item Value Reference Range Interpretation Comments Bili Total (test code = Bili Total) 1.0 0.2-1.3 [facility] [id number] 08:03:00 Test Item Value Reference Range Interpretation Comments eGFR (test code = eGFR) 67 [facility] [id number] 08:03:00 Test Item Value Reference Range Interpretation Comments Magnesium Lvl (test code = Magnesium 1.9 1.8-2.4 Lvl) [facility] [id number] 08:03:00 Test Item Value Reference Range Interpretation Comments Procalcitonin Lvl (test no gt See_Comment [Au tomated message] code = Procalcitonin Lvl) Th e system which generated this result transmitted ref erence range: <=0.10. The reference range was not used to interpr et this result as normal/abnormal . [facility] [id number] 08:03:00 Test Item Value Reference Range Interpretation Comments LDH (test code = LDH) 354 98-192 [facility]CxxwjrbBYRFUJFQUP9394-73-64 08:03:00 Test Item Value Reference Range Interpretation Comments WBC (test code = WBC) 7.5 3.7-10.4 [place] [address]-07-25 08:03:00 Test Item Value Reference Range Interpretation Comments RBC (test code = RBC) 3.44 4.20-5.40 [facility] HospitalUgjatlrDWQCLEZPZW8458-67-38 08:03:00 Test Item Value Reference Range Interpretation Comments Hgb (test code = Hgb) 8.3 12.0-16.0 [place] 325412-07-25 08:03:00 Test Item Value Reference Range Interpretation Comments Hct (test code = Hct) 26.2 36.0-48.0 [place] 325412-07-25 08:03:00 Test Item Value Reference Range Interpretation Comments MCV (test code = MCV) 76.1 80.0-98.0 [place] 325412-07-25 08:03:00 Test Item Value Reference Range Interpretation Comments MCH (test code = MCH) 24.0 pg 27.0-31.0 [place] 325412-07-25 08:03:00 Test Item Value Reference Range Interpretation Comments MCHC (test code = MCHC) 31.6 32.0-36.0 [place] 325412-07-25 08:03:00 Test Item Value Reference Range Interpretation Comments RDW (test code = RDW) 20.9 11.5-14.5 [place] 325412-07-25 08:03:00 Test Item Value Reference Range Interpretation Comments Platelet (test code = Platelet) 289 133-450 [facility] CampusAurqgqzSZWZVBCRPO0486-27-21 08:03:00 Test Item Value Reference Range Interpretation Comments MPV (test code = MPV) 7.5 7.4-10.4 [place] 325412-07-25 08:03:00 Test Item Value Reference Range Interpretation Comments Segs (test code = Segs) 94.0 45.0-75.0 [place] 325412-07-25 08:03:00 Test Item Value Reference Range Interpretation Comments Lymphocytes (test code = Lymphocytes) 4.3 20.0-40.0 [place] 325412-07-25 08:03:00 Test Item Value Reference Range Interpretation Comments Monocytes (test code = Monocytes) 1.6 2.0-12.0 [place] [address]-07-25 08:03:00 Test Item Value Reference Range Interpretation Comments Basophils (test code = 0.1 See_Comment [Aut omated message] The Basophils) system which ge nerated this result tra nsmitted reference range : <=1.0. The reference r hugo was not used to int erpret this result as normal/abnormal . [place] 325412-07-25 08:03:00 Test Item Value Reference Range Interpretation Comments Neutrophils # (test code = Neutrophils 7.0 1.5-8.1 #) [facility] CenterCzbvnfvYCNEIKKWEQ6008-20-49 08:03:00 Test Item Value Reference Range Interpretation Comments Lymphocytes # (test code = Lymphocytes 0.3 1.0-5.5 #) [facility] CenterAvytixmMLHPBHBNIJ0734-74-10 08:03:00 Test Item Value Reference Range Interpretation Comments Monocytes # (test code 0.1 See_Comment [Aut omated message] The = Monocytes #) system which generated this result tra nsmitted reference range : <=0.8. The reference r hugo was not used to int erpret this result as normal/abnormal . [id number] 08:03:00 Test Item Value Reference Range Interpretation Comments Microcyte (test code = 1+ *ABN*(06/13/22 Microcyte) 3:03 AM) [facility] CenterJim[facility]ly[facility] 08:03:00 Test Item Value Reference Range Interpretation Comments HS Troponin I 1 Hr (test code = HS 50 Troponin I 1 Hr) [facility] Center[facility] [id number] 08:03:00 Test Item Value Reference Range Interpretation Comments HS Troponin I 0 to 1 See Note 5(06/13/22 Hour Delta (test code = 3:03 AM) HS Troponin I 0 to 1 Hour Delta) [facility] CenterCloudstaff [id number] 08:03:00 Test Item Value Reference Range Interpretation Comments Glucose Lvl (test code = Glucose Lvl) 142 70-99 [facility] [employer] Alert2022-07-25 08:03:00 Test Item Value Reference Range Interpretation Comments BUN (test code = BUN) 21 - [facility] [employer] [id number] 08:03:00 Test Item Value Reference Range Interpretation Comments Creatinine Lvl (test code = Creatinine 0.84 0.50-1.40 Lvl) [facility] [employer] [id number] 08:03:00 Test Item Value Reference Range Interpretation Comments Sodium Lvl (test code = Sodium Lvl) 133 135-145 [facility] [employer] [id number] 08:03:00 Test Item Value Reference Range Interpretation Comments Potassium Lvl (test code = Potassium 4.4 3.5-5.1 Lvl) [place] 480482-07-25 08:03:00 Test Item Value Reference Range Interpretation Comments Chloride Lvl (test code = Chloride Lvl) 98 95-109 [place] 480482-07-25 08:03:00 Test Item Value Reference Range Interpretation Comments CO2 (test code = CO2) 25 24-32 [place] [address]-07-25 08:03:00 Test Item Value Reference Range Interpretation Comments AGAP (test code = AGAP) 14.4 10.0-20.0 [place] 480482-07-25 08:03:00 Test Item Value Reference Range Interpretation Comments Calcium Lvl (test code = Calcium Lvl) 9.1 8.5-10.5 [place] [address]-07-25 08:03:00 Test Item Value Reference Range Interpretation Comments B/C Ratio (test code = B/C Ratio) 25 1 6-25 [place] [address]-07-25 08:03:00 Test Item Value Reference Range Interpretation Comments Total Protein (test code = Total 6.7 6.4-8.4 Protein) [place] 480482-07-25 08:03:00 Test Item Value Reference Range Interpretation Comments Albumin Lvl (test code = Albumin Lvl) 3.2 3.5-5.0 [place] [address]-07-25 08:03:00 Test Item Value Reference Range Interpretation Comments Globulin (test code = Globulin) 3.5 2.7-4.2 [place] [address]-07-25 08:03:00 Test Item Value Reference Range Interpretation Comments A/G Ratio (test code = A/G Ratio) 0.9 1 0.7-1.6 [place] [address]-07-25 08:03:00 Test Item Value Reference Range Interpretation Comments ALT (test code = ALT) 19 See_Comment [Auto mated message] The system which ge nerated this result transmit lavon reference range : <=65. The reference range was not used to interpr et this result as dionne l/abnormal. [facility] HospitalLiquidTalk [id number] 08:03:00 Test Item Value Reference Range Interpretation Comments AST (test code = AST) 26 See_Comment [Auto mated message] The system which ge nerated this result transmit lavon reference range : <=37. The reference range was not used to interpr et this result as dionne l/abnormal. [facility]Liquid[facility] [id number] 08:03:00 Test Item Value Reference Range Interpretation Comments Alk Phos (test code = Alk Phos) 56 39-136 [place] 480482-07-25 08:03:00 Test Item Value Reference Range Interpretation Comments Bili Total (test code = Bili Total) 1.0 0.2-1.3 [place] [address]-07-25 08:03:00 Test Item Value Reference Range Interpretation Comments eGFR (test code = eGFR) 67 [place] 480482-07-25 08:03:00 Test Item Value Reference Range Interpretation Comments Magnesium Lvl (test code = Magnesium 1.9 1.8-2.4 Lvl) [place] [address]-07-25 08:03:00 Test Item Value Reference Range Interpretation Comments Procalcitonin Lvl (test no gt See_Comment [Au tomated message] code = Procalcitonin Lvl) e system which generated this result transmitted ref erence range: <=0.10. The reference range was not used to interpr et this result as normal/abnormal . [place] 480482-07-25 08:03:00 Test Item Value Reference Range Interpretation Comments LDH (test code = LDH) 354 98-192 [place] 325412-07-25 08:03:00 Test Item Value Reference Range Interpretation Comments WBC (test code = WBC) 7.5 3.7-10.4 [place] [address]-07-25 08:03:00 Test Item Value Reference Range Interpretation Comments RBC (test code = RBC) 3.44 4.20-5.40 [place] [address]-07-25 08:03:00 Test Item Value Reference Range Interpretation Comments Hgb (test code = Hgb) 8.3 12.0-16.0 [place] [address]-07-25 08:03:00 Test Item Value Reference Range Interpretation Comments Hct (test code = Hct) 26.2 36.0-48.0 [place] [address]-07-25 08:03:00 Test Item Value Reference Range Interpretation Comments MCV (test code = MCV) 76.1 80.0-98.0 [place] 325412-07-25 08:03:00 Test Item Value Reference Range Interpretation Comments MCH (test code = MCH) 24.0 pg 27.0-31.0 [place] 325412-07-25 08:03:00 Test Item Value Reference Range Interpretation Comments MCHC (test code = MCHC) 31.6 32.0-36.0 [facility] CampusGqicatnWNXJURIKFU3663-10-20 08:03:00 Test Item Value Reference Range Interpretation Comments RDW (test code = RDW) 20.9 11.5-14.5 [place] 325412-07-25 08:03:00 Test Item Value Reference Range Interpretation Comments Platelet (test code = Platelet) 289 133-450 [facility] CampusHwmovrtURLBHFTYJE5693-79-19 08:03:00 Test Item Value Reference Range Interpretation Comments MPV (test code = MPV) 7.5 7.4-10.4 [facility] CampusEqfmjoyIPTWHQDBOV2366-33-47 08:03:00 Test Item Value Reference Range Interpretation Comments Segs (test code = Segs) 94.0 45.0-75.0 [facility] CampusNosuurnZRPWMMOSEF6842-39-51 08:03:00 Test Item Value Reference Range Interpretation Comments Lymphocytes (test code = Lymphocytes) 4.3 20.0-40.0 [facility] CampusDbelsbgIGBCQJIHNU3333-96-02 08:03:00 Test Item Value Reference Range Interpretation Comments Monocytes (test code = Monocytes) 1.6 2.0-12.0 [place] 325412-07-25 08:03:00 Test Item Value Reference Range Interpretation Comments Basophils (test code = 0.1 See_Comment [Aut omated message] The Basophils) system which ge nerated this result tra nsmitted reference range : <=1.0. The reference r hugo was not used to int erpret this result as normal/abnormal . [facility] CampusPrjlbacWQTTIYBTDE3332-15-29 08:03:00 Test Item Value Reference Range Interpretation Comments Neutrophils # (test code = Neutrophils 7.0 1.5-8.1 #) [facility] CampusPezvrryZJVXRYFHAW8606-15-82 08:03:00 Test Item Value Reference Range Interpretation Comments Lymphocytes # (test code = Lymphocytes 0.3 1.0-5.5 #) [facility] CampusVjfztgiFWTRLUBFEN0166-63-25 08:03:00 Test Item Value Reference Range Interpretation Comments Monocytes # (test code 0.1 See_Comment [Aut omated message] The = Monocytes #) system which generated this result tra nsmitted reference range : <=0.8. The reference r hugo was not used to int erpret this result as normal/abnormal . [facility] HospitalComkvulLUROHGNFJI1892-26-22 08:03:00 Test Item Value Reference Range Interpretation Comments Microcyte (test code = 1+ *ABN*(06/13/22 Microcyte) 3:03 AM) [facility] [id number] 08:03:00 Test Item Value Reference Range Interpretation Comments HS Troponin I 1 Hr (test code = HS 50 Troponin I 1 Hr) [facility] CenterACTV8 [id number] 08:03:00 Test Item Value Reference Range Interpretation Comments HS Troponin I 0 to 1 See Note 5(06/13/22 Hour Delta (test code = 3:03 AM) HS Troponin I 0 to 1 Hour Delta) [facility] [employer] Alert2022-07-25 08:03:00 Test Item Value Reference Range Interpretation Comments Glucose Lvl (test code = Glucose Lvl) 142 70-99 [facility] [employer] [id number] 08:03:00 Test Item Value Reference Range Interpretation Comments BUN (test code = BUN) 21 06-10 [facility] [employer] [id number] 08:03:00 Test Item Value Reference Range Interpretation Comments Creatinine Lvl (test code = Creatinine 0.84 0.50-1.40 Lvl) [facility] CenterSiving Egil KvalebergXNSQX0272-49-25 08:03:00 Test Item Value Reference Range Interpretation Comments Sodium Lvl (test code = Sodium Lvl) 133 135-145 [facility] CenterS[facility] Egil KvalebergQYRMW8614-23-82 08:03:00 Test Item Value Reference Range Interpretation Comments Potassium Lvl (test code = Potassium 4.4 3.5-5.1 Lvl) [facility] [employer] Alert2022-07-25 08:03:00 Test Item Value Reference Range Interpretation Comments Chloride Lvl (test code = Chloride Lvl) 98 95-109 [facility]Cloud[facility] [id number] 08:03:00 Test Item Value Reference Range Interpretation Comments CO2 (test code = CO2) 25 24-32 [facility] CenterannDAVID [place] [id number] 08:03:00 Test Item Value Reference Range Interpretation Comments AGAP (test code = AGAP) 14.4 10.0-20.0 [place] [address]-07-25 08:03:00 Test Item Value Reference Range Interpretation Comments Calcium Lvl (test code = Calcium Lvl) 9.1 8.5-10.5 [place] 480482-07-25 08:03:00 Test Item Value Reference Range Interpretation Comments B/C Ratio (test code = B/C Ratio) 25 1 6-25 [place] [address]-07-25 08:03:00 Test Item Value Reference Range Interpretation Comments Total Protein (test code = Total 6.7 6.4-8.4 Protein) [place] [address]-07-25 08:03:00 Test Item Value Reference Range Interpretation Comments Albumin Lvl (test code = Albumin Lvl) 3.2 3.5-5.0 [place] 480482-07-25 08:03:00 Test Item Value Reference Range Interpretation Comments Globulin (test code = Globulin) 3.5 2.7-4.2 [place] [address]-07-25 08:03:00 Test Item Value Reference Range Interpretation Comments A/G Ratio (test code = A/G Ratio) 0.9 1 0.7-1.6 [place] 480482-07-25 08:03:00 Test Item Value Reference Range Interpretation Comments ALT (test code = ALT) 19 See_Comment [Auto mated message] The system which ge nerated this result transmit lavon reference range : <=65. The reference range was not used to interpr et this result as dionne l/abnormal. [facility] HospitalLiquidTalk [id number] 08:03:00 Test Item Value Reference Range Interpretation Comments AST (test code = AST) 26 See_Comment [Auto mated message] The system which ge nerated this result transmit lavon reference range : <=37. The reference range was not used to interpr et this result as dionne l/abnormal. [facility] [id number] 08:03:00 Test Item Value Reference Range Interpretation Comments Alk Phos (test code = Alk Phos) 56 39-136 [facility] [id number] 08:03:00 Test Item Value Reference Range Interpretation Comments Bili Total (test code = Bili Total) 1.0 0.2-1.3 [place] 480482-07-25 08:03:00 Test Item Value Reference Range Interpretation Comments eGFR (test code = eGFR) 67 [place] 480482-07-25 08:03:00 Test Item Value Reference Range Interpretation Comments Magnesium Lvl (test code = Magnesium 1.9 1.8-2.4 Lvl) [place] 480482-07-25 08:03:00 Test Item Value Reference Range Interpretation Comments Procalcitonin Lvl (test no gt See_Comment [Au tomated message] code = Procalcitonin Lvl) Th e system which generated this result transmitted ref erence range: <=0.10. The reference range was not used to interpr et this result as normal/abnormal . [place] 480482-07-25 08:03:00 Test Item Value Reference Range Interpretation Comments LDH (test code = LDH) 354 98-192 [place] 325412-07-25 08:03:00 Test Item Value Reference Range Interpretation Comments WBC (test code = WBC) 7.5 3.7-10.4 [place] [address]-07-25 08:03:00 Test Item Value Reference Range Interpretation Comments RBC (test code = RBC) 3.44 4.20-5.40 [place] [address]-07-25 08:03:00 Test Item Value Reference Range Interpretation Comments Hgb (test code = Hgb) 8.3 12.0-16.0 [place] [address]-07-25 08:03:00 Test Item Value Reference Range Interpretation Comments Hct (test code = Hct) 26.2 36.0-48.0 [place] [address]-07-25 08:03:00 Test Item Value Reference Range Interpretation Comments MCV (test code = MCV) 76.1 80.0-98.0 [place] [address]-07-25 08:03:00 Test Item Value Reference Range Interpretation Comments MCH (test code = MCH) 24.0 pg 27.0-31.0 [place] [address]-07-25 08:03:00 Test Item Value Reference Range Interpretation Comments MCHC (test code = MCHC) 31.6 32.0-36.0 [place] 325412-07-25 08:03:00 Test Item Value Reference Range Interpretation Comments RDW (test code = RDW) 20.9 11.5-14.5 [place] 325412-07-25 08:03:00 Test Item Value Reference Range Interpretation Comments Platelet (test code = Platelet) 289 133-450 [place] 325412-07-25 08:03:00 Test Item Value Reference Range Interpretation Comments MPV (test code = MPV) 7.5 7.4-10.4 [place] [address]-07-25 08:03:00 Test Item Value Reference Range Interpretation Comments Segs (test code = Segs) 94.0 45.0-75.0 [place] [address]-07-25 08:03:00 Test Item Value Reference Range Interpretation Comments Lymphocytes (test code = Lymphocytes) 4.3 20.0-40.0 [place] 325412-07-25 08:03:00 Test Item Value Reference Range Interpretation Comments Monocytes (test code = Monocytes) 1.6 2.0-12.0 [place] [address]-07-25 08:03:00 Test Item Value Reference Range Interpretation Comments Basophils (test code = 0.1 See_Comment [Aut omated message] The Basophils) system which ge nerated this result tra nsmitted reference range : <=1.0. The reference r hugo was not used to int erpret this result as normal/abnormal . [facility] [id number] 08:03:00 Test Item Value Reference Range Interpretation Comments Neutrophils # (test code = Neutrophils 7.0 1.5-8.1 #) [place] 325412-07-25 08:03:00 Test Item Value Reference Range Interpretation Comments Lymphocytes # (test code = Lymphocytes 0.3 1.0-5.5 #) [place] [address]-07-25 08:03:00 Test Item Value Reference Range Interpretation Comments Monocytes # (test code 0.1 See_Comment [Aut omated message] The = Monocytes #) system which generated this result tra nsmitted reference range : <=0.8. The reference r hugo was not used to int erpret this result as normal/abnormal . [place] 325412-07-25 08:03:00 Test Item Value Reference Range Interpretation Comments Microcyte (test code = 1+ *ABN*(06/13/22 Microcyte) 3:03 AM) [facility] HospitalCARDIAC [id number] 08:03:00 Test Item Value Reference Range Interpretation Comments HS Troponin I 1 Hr (test code = HS 50 Troponin I 1 Hr) [facility] [id number] 08:03:00 Test Item Value Reference Range Interpretation Comments HS Troponin I 0 to 1 See Note 5(06/13/22 Hour Delta (test code = 3:03 AM) HS Troponin I 0 to 1 Hour Delta) [facility]Cloud[facility] [id number] 08:03:00 Test Item Value Reference Range Interpretation Comments Glucose Lvl (test code = Glucose Lvl) 142 70-99 [facility]id[facility] [id number] 08:03:00 Test Item Value Reference Range Interpretation Comments BUN (test code = BUN) 21 - [facility]Cloud[facility] [id number] 08:03:00 Test Item Value Reference Range Interpretation Comments Creatinine Lvl (test code = Creatinine 0.84 0.50-1.40 Lvl) [facility] [id number] 08:03:00 Test Item Value Reference Range Interpretation Comments Sodium Lvl (test code = Sodium Lvl) 133 135-145 [facility] [id number] 08:03:00 Test Item Value Reference Range Interpretation Comments Potassium Lvl (test code = Potassium 4.4 3.5-5.1 Lvl) [facility] [id number] 08:03:00 Test Item Value Reference Range Interpretation Comments Chloride Lvl (test code = Chloride Lvl) 98 95-109 [facility] [id number] 08:03:00 Test Item Value Reference Range Interpretation Comments CO2 (test code = CO2) 25 24-32 [facility] [id number] 08:03:00 Test Item Value Reference Range Interpretation Comments AGAP (test code = AGAP) 14.4 10.0-20.0 [facility] [id number] 08:03:00 Test Item Value Reference Range Interpretation Comments Calcium Lvl (test code = Calcium Lvl) 9.1 8.5-10.5 [facility] [id number] 08:03:00 Test Item Value Reference Range Interpretation Comments B/C Ratio (test code = B/C Ratio) 25 1 6-25 [place] 480482-07-25 08:03:00 Test Item Value Reference Range Interpretation Comments Total Protein (test code = Total 6.7 6.4-8.4 Protein) [place] 480482-07-25 08:03:00 Test Item Value Reference Range Interpretation Comments Albumin Lvl (test code = Albumin Lvl) 3.2 3.5-5.0 [place] 480482-07-25 08:03:00 Test Item Value Reference Range Interpretation Comments Globulin (test code = Globulin) 3.5 2.7-4.2 [place] 480482-07-25 08:03:00 Test Item Value Reference Range Interpretation Comments A/G Ratio (test code = A/G Ratio) 0.9 1 0.7-1.6 [place] 480482-07-25 08:03:00 Test Item Value Reference Range Interpretation Comments ALT (test code = ALT) 19 See_Comment [Auto mated message] The system which ge nerated this result transmit lavon reference range : <=65. The reference range was not used to interpr et this result as dionne l/abnormal. [facility] [id number] 08:03:00 Test Item Value Reference Range Interpretation Comments AST (test code = AST) 26 See_Comment [Auto mated message] The system which ge nerated this result transmit lavon reference range : <=37. The reference range was not used to interpr et this result as dionne l/abnormal. [facility] [id number] 08:03:00 Test Item Value Reference Range Interpretation Comments Alk Phos (test code = Alk Phos) 56 39-136 [facility] [id number] 08:03:00 Test Item Value Reference Range Interpretation Comments Bili Total (test code = Bili Total) 1.0 0.2-1.3 [facility] [id number] 08:03:00 Test Item Value Reference Range Interpretation Comments eGFR (test code = eGFR) 67 [facility] [id number] 08:03:00 Test Item Value Reference Range Interpretation Comments Magnesium Lvl (test code = Magnesium 1.9 1.8-2.4 Lvl) [facility]2022-07-25 08:03:00 Test Item Value Reference Range Interpretation Comments Procalcitonin Lvl (test no gt See_Comment [Au tomated message] code = Procalcitonin Lvl) e system which generated this result transmitted ref erence range: <=0.10. The reference range was not used to interpr et this result as normal/abnormal . [facility]2022-07-25 08:03:00 Test Item Value Reference Range Interpretation Comments LDH (test code = LDH) 354 98-192 [facility] C[id number] 08:03:00 Test Item Value Reference Range Interpretation Comments WBC (test code = WBC) 7.5 3.7-10.4 [facility] CampusNrgvvthYYWMCEJHDO5420-24-15 08:03:00 Test Item Value Reference Range Interpretation Comments RBC (test code = RBC) 3.44 4.20-5.40 [facility] C[id number] 08:03:00 Test Item Value Reference Range Interpretation Comments Hgb (test code = Hgb) 8.3 12.0-16.0 [facility] CampusRxyhcxoNMUAELJMVN4352-72-84 08:03:00 Test Item Value Reference Range Interpretation Comments Hct (test code = Hct) 26.2 36.0-48.0 [facility] CampusPehbwvkBHCVQWCMWD9485-61-48 08:03:00 Test Item Value Reference Range Interpretation Comments MCV (test code = MCV) 76.1 80.0-98.0 [place] 325412-07-25 08:03:00 Test Item Value Reference Range Interpretation Comments MCH (test code = MCH) 24.0 pg 27.0-31.0 [facility] [id number] 08:03:00 Test Item Value Reference Range Interpretation Comments MCHC (test code = MCHC) 31.6 32.0-36.0 [place] 325412-07-25 08:03:00 Test Item Value Reference Range Interpretation Comments RDW (test code = RDW) 20.9 11.5-14.5 [place] 325412-07-25 08:03:00 Test Item Value Reference Range Interpretation Comments Platelet (test code = Platelet) 289 133-450 [facility] CampusNhgtlonHCSXZFUWRA7347-27-98 08:03:00 Test Item Value Reference Range Interpretation Comments MPV (test code = MPV) 7.5 7.4-10.4 [facility] CampusDkvgbudIOGDSYYOOW0002-17-21 08:03:00 Test Item Value Reference Range Interpretation Comments Segs (test code = Segs) 94.0 45.0-75.0 [facility] CampusTdiklnuQVHBZKEHNU8112-08-89 08:03:00 Test Item Value Reference Range Interpretation Comments Lymphocytes (test code = Lymphocytes) 4.3 20.0-40.0 [facility] CampusKyoswliJBENFHXKYC7462-10-13 08:03:00 Test Item Value Reference Range Interpretation Comments Monocytes (test code = Monocytes) 1.6 2.0-12.0 [facility] CampusZxctijoIAZIVXCYPE6689-09-33 08:03:00 Test Item Value Reference Range Interpretation Comments Basophils (test code = 0.1 See_Comment [Aut omated message] The Basophils) system which ge nerated this result tra nsmitted reference range : <=1.0. The reference r hugo was not used to int erpret this result as normal/abnormal . [facility] CampusAnyseucEDZWXCAIBB0605-28-45 08:03:00 Test Item Value Reference Range Interpretation Comments Neutrophils # (test code = Neutrophils 7.0 1.5-8.1 #) [facility] CampusEznqjqcYEMLELNUSE5605-72-62 08:03:00 Test Item Value Reference Range Interpretation Comments Lymphocytes # (test code = Lymphocytes 0.3 1.0-5.5 #) [facility] [id number] 08:03:00 Test Item Value Reference Range Interpretation Comments Monocytes # (test code 0.1 See_Comment [Aut omated message] The = Monocytes #) system which generated this result tra nsmitted reference range : <=0.8. The reference r hugo was not used to int erpret this result as normal/abnormal . [facility] CampusYrxestqQKRHSOCTRJ7813-89-07 08:03:00 Test Item Value Reference Range Interpretation Comments Microcyte (test code = 1+ *ABN*(06/13/22 Microcyte) 3:03 AM) [facility]2022-07-25 08:03:00 Test Item Value Reference Range Interpretation Comments HS Troponin I 1 Hr (test code = HS 50 Troponin I 1 Hr) [facility] [id number] 08:03:00 Test Item Value Reference Range Interpretation Comments HS Troponin I 0 to 1 See Note 5(06/13/22 Hour Delta (test code = 3:03 AM) HS Troponin I 0 to 1 Hour Delta) [facility] [id number] 08:03:00 Test Item Value Reference Range Interpretation Comments Glucose Lvl (test code = Glucose Lvl) 142 70-99 [facility] [facility] [id number] 08:03:00 Test Item Value Reference Range Interpretation Comments BUN (test code = BUN) 21 06-10 [facility] [id number] 08:03:00 Test Item Value Reference Range Interpretation Comments Creatinine Lvl (test code = Creatinine 0.84 0.50-1.40 Lvl) [facility] [id number] 08:03:00 Test Item Value Reference Range Interpretation Comments Sodium Lvl (test code = Sodium Lvl) 133 135-145 [facility] [id number] 08:03:00 Test Item Value Reference Range Interpretation Comments Potassium Lvl (test code = Potassium 4.4 3.5-5.1 Lvl) [facility] [id number] 08:03:00 Test Item Value Reference Range Interpretation Comments Chloride Lvl (test code = Chloride Lvl) 98 95-109 [facility] [id number] 08:03:00 Test Item Value Reference Range Interpretation Comments CO2 (test code = CO2) 25 24-32 [facility] [id number] 08:03:00 Test Item Value Reference Range Interpretation Comments AGAP (test code = AGAP) 14.4 10.0-20.0 [facility] [id number] 08:03:00 Test Item Value Reference Range Interpretation Comments Calcium Lvl (test code = Calcium Lvl) 9.1 8.5-10.5 [facility] [id number] 08:03:00 Test Item Value Reference Range Interpretation Comments B/C Ratio (test code = B/C Ratio) 25 1 6-25 [facility] [id number] 08:03:00 Test Item Value Reference Range Interpretation Comments Total Protein (test code = Total 6.7 6.4-8.4 Protein) [facility] [id number] 08:03:00 Test Item Value Reference Range Interpretation Comments Albumin Lvl (test code = Albumin Lvl) 3.2 3.5-5.0 [facility]IR[facility] [id number] 08:03:00 Test Item Value Reference Range Interpretation Comments Globulin (test code = Globulin) 3.5 2.7-4.2 [facility] [id number] 08:03:00 Test Item Value Reference Range Interpretation Comments A/G Ratio (test code = A/G Ratio) 0.9 1 0.7-1.6 [facility] [id number] 08:03:00 Test Item Value Reference Range Interpretation Comments ALT (test code = ALT) 19 See_Comment [Auto mated message] The system which ge nerated this result transmit lavon reference range : <=65. The reference range was not used to interpr et this result as dionne l/abnormal. [facility] [id number] 08:03:00 Test Item Value Reference Range Interpretation Comments AST (test code = AST) 26 See_Comment [Auto mated message] The system which ge nerated this result transmit lavon reference range : <=37. The reference range was not used to interpr et this result as dionne l/abnormal. [facility] [id number] 08:03:00 Test Item Value Reference Range Interpretation Comments Alk Phos (test code = Alk Phos) 56 39-136 [facility] [id number] 08:03:00 Test Item Value Reference Range Interpretation Comments Bili Total (test code = Bili Total) 1.0 0.2-1.3 [facility] [id number] 08:03:00 Test Item Value Reference Range Interpretation Comments eGFR (test code = eGFR) 67 [facility] [id number] 08:03:00 Test Item Value Reference Range Interpretation Comments Magnesium Lvl (test code = Magnesium 1.9 1.8-2.4 Lvl) [facility] [id number] 08:03:00 Test Item Value Reference Range Interpretation Comments Procalcitonin Lvl (test no gt See_Comment [Au tomated message] code = Procalcitonin Lvl) Th e system which generated this result transmitted ref erence range: <=0.10. The reference range was not used to interpr et this result as normal/abnormal . [facility]2022-07-25 08:03:00 Test Item Value Reference Range Interpretation Comments LDH (test code = LDH) 354 98-192 [facility] CampusIdowmzkKPCWVXDNAN1391-16-10 08:03:00 Test Item Value Reference Range Interpretation Comments WBC (test code = WBC) 7.5 3.7-10.4 [place] 325412-07-25 08:03:00 Test Item Value Reference Range Interpretation Comments RBC (test code = RBC) 3.44 4.20-5.40 [place] 325412-07-25 08:03:00 Test Item Value Reference Range Interpretation Comments Hgb (test code = Hgb) 8.3 12.0-16.0 [place] 325412-07-25 08:03:00 Test Item Value Reference Range Interpretation Comments Hct (test code = Hct) 26.2 36.0-48.0 [place] 325412-07-25 08:03:00 Test Item Value Reference Range Interpretation Comments MCV (test code = MCV) 76.1 80.0-98.0 [place] [address]-07-25 08:03:00 Test Item Value Reference Range Interpretation Comments MCH (test code = MCH) 24.0 pg 27.0-31.0 [facility] CampusJbzvhgrEUOYYNQZXU7570-02-85 08:03:00 Test Item Value Reference Range Interpretation Comments MCHC (test code = MCHC) 31.6 32.0-36.0 [facility] [id number] 08:03:00 Test Item Value Reference Range Interpretation Comments RDW (test code = RDW) 20.9 11.5-14.5 [place] 325412-07-25 08:03:00 Test Item Value Reference Range Interpretation Comments Platelet (test code = Platelet) 289 133-450 [facility] CampusLycebueBZFTGVJIPW0217-92-06 08:03:00 Test Item Value Reference Range Interpretation Comments MPV (test code = MPV) 7.5 7.4-10.4 [place] 325412-07-25 08:03:00 Test Item Value Reference Range Interpretation Comments Segs (test code = Segs) 94.0 45.0-75.0 [facility] CenterWuewtioWSAKGTMSQY3845-10-12 08:03:00 Test Item Value Reference Range Interpretation Comments Lymphocytes (test code = Lymphocytes) 4.3 20.0-40.0 [facility] CenterJqnnudkBNPPOGAHMA5855-70-36 08:03:00 Test Item Value Reference Range Interpretation Comments Monocytes (test code = Monocytes) 1.6 2.0-12.0 [facility] CenterPkjpvjuHQDBEVCHWV7163-02-03 08:03:00 Test Item Value Reference Range Interpretation Comments Basophils (test code = 0.1 See_Comment [Aut omated message] The Basophils) system which ge nerated this result tra nsmitted reference range : <=1.0. The reference r hugo was not used to int erpret this result as normal/abnormal . [facility] CenterPqwcpldHWFOFQZFHI4904-51-38 08:03:00 Test Item Value Reference Range Interpretation Comments Neutrophils # (test code = Neutrophils 7.0 1.5-8.1 #) [facility] CenterSvnjdumGIJERNVDMV2543-73-16 08:03:00 Test Item Value Reference Range Interpretation Comments Lymphocytes # (test code = Lymphocytes 0.3 1.0-5.5 #) [facility] CenterKunlchkEVODCFQQDO3826-27-83 08:03:00 Test Item Value Reference Range Interpretation Comments Monocytes # (test code 0.1 See_Comment [Aut omated message] The = Monocytes #) system which generated this result tra nsmitted reference range : <=0.8. The reference r hugo was not used to int erpret this result as normal/abnormal . [facility] CenterKbgymoaGYBSQWCYGC5575-71-45 08:03:00 Test Item Value Reference Range Interpretation Comments Microcyte (test code = 1+ *ABN*(06/13/22 Microcyte) 3:03 AM) [facility] CenterJim[facility] 08:03:00 Test Item Value Reference Range Interpretation Comments HS Troponin I 1 Hr (test code = HS 50 Troponin I 1 Hr) [facility] CenterGn[facility] [id number] 08:03:00 Test Item Value Reference Range Interpretation Comments HS Troponin I 0 to 1 See Note 5(06/13/22 Hour Delta (test code = 3:03 AM) HS Troponin I 0 to 1 Hour Delta) [facility] [id number] 08:03:00 Test Item Value Reference Range Interpretation Comments Glucose Lvl (test code = Glucose Lvl) 142 70-99 [facility]2022-07-25 08:03:00 Test Item Value Reference Range Interpretation Comments BUN (test code = BUN) 21 7-22 [facility]2022-07-25 08:03:00 Test Item Value Reference Range Interpretation Comments Creatinine Lvl (test code = Creatinine 0.84 0.50-1.40 Lvl) [facility]2022-07-25 08:03:00 Test Item Value Reference Range Interpretation Comments Sodium Lvl (test code = Sodium Lvl) 133 135-145 [place] 480482-07-25 08:03:00 Test Item Value Reference Range Interpretation Comments Potassium Lvl (test code = Potassium 4.4 3.5-5.1 Lvl) [facility]2022-07-25 08:03:00 Test Item Value Reference Range Interpretation Comments Chloride Lvl (test code = Chloride Lvl) 98 95-109 [facility]2022-07-25 08:03:00 Test Item Value Reference Range Interpretation Comments CO2 (test code = CO2) 25 24-32 [place] 480482-07-25 08:03:00 Test Item Value Reference Range Interpretation Comments AGAP (test code = AGAP) 14.4 10.0-20.0 [place] 480482-07-25 08:03:00 Test Item Value Reference Range Interpretation Comments Calcium Lvl (test code = Calcium Lvl) 9.1 8.5-10.5 [facility]2022-07-25 08:03:00 Test Item Value Reference Range Interpretation Comments B/C Ratio (test code = B/C Ratio) 25 1 6-25 [place] 480482-07-25 08:03:00 Test Item Value Reference Range Interpretation Comments Total Protein (test code = Total 6.7 6.4-8.4 Protein) [place] 480482-07-25 08:03:00 Test Item Value Reference Range Interpretation Comments Albumin Lvl (test code = Albumin Lvl) 3.2 3.5-5.0 [place] 480482-07-25 08:03:00 Test Item Value Reference Range Interpretation Comments Globulin (test code = Globulin) 3.5 2.7-4.2 [place] [address]-07-25 08:03:00 Test Item Value Reference Range Interpretation Comments A/G Ratio (test code = A/G Ratio) 0.9 1 0.7-1.6 [place] [address]-07-25 08:03:00 Test Item Value Reference Range Interpretation Comments ALT (test code = ALT) 19 See_Comment [Auto mated message] The system which ge nerated this result transmit lavon reference range : <=65. The reference range was not used to interpr et this result as dionne l/abnormal. [facility] [id number] 08:03:00 Test Item Value Reference Range Interpretation Comments AST (test code = AST) 26 See_Comment [Auto mated message] The system which ge nerated this result transmit lavon reference range : <=37. The reference range was not used to interpr et this result as dionne l/abnormal. [facility] CenterIRIS.[place] [id number] 08:03:00 Test Item Value Reference Range Interpretation Comments Alk Phos (test code = Alk Phos) 56 39-136 [facility] [id number] 08:03:00 Test Item Value Reference Range Interpretation Comments Bili Total (test code = Bili Total) 1.0 0.2-1.3 [facility] [id number] 08:03:00 Test Item Value Reference Range Interpretation Comments eGFR (test code = eGFR) 67 [place] [address]-07-25 08:03:00 Test Item Value Reference Range Interpretation Comments Magnesium Lvl (test code = Magnesium 1.9 1.8-2.4 Lvl) [place] [address]-07-25 08:03:00 Test Item Value Reference Range Interpretation Comments Procalcitonin Lvl (test no gt See_Comment [Au tomated message] code = Procalcitonin Lvl) Th e system which generated this result transmitted ref erence range: <=0.10. The reference range was not used to interpr et this result as normal/abnormal . [facility] [id number] 08:03:00 Test Item Value Reference Range Interpretation Comments LDH (test code = LDH) 354 98-192 [place] 325412-07-25 08:03:00 Test Item Value Reference Range Interpretation Comments WBC (test code = WBC) 7.5 3.7-10.4 [facility] CampusBsgbksdGKPEDGVHVH3179-27-52 08:03:00 Test Item Value Reference Range Interpretation Comments RBC (test code = RBC) 3.44 4.20-5.40 [place] 325412-07-25 08:03:00 Test Item Value Reference Range Interpretation Comments Hgb (test code = Hgb) 8.3 12.0-16.0 [place] 325412-07-25 08:03:00 Test Item Value Reference Range Interpretation Comments Hct (test code = Hct) 26.2 36.0-48.0 [place] 325412-07-25 08:03:00 Test Item Value Reference Range Interpretation Comments MCV (test code = MCV) 76.1 80.0-98.0 [place] 325412-07-25 08:03:00 Test Item Value Reference Range Interpretation Comments MCH (test code = MCH) 24.0 pg 27.0-31.0 [place] 325412-07-25 08:03:00 Test Item Value Reference Range Interpretation Comments MCHC (test code = MCHC) 31.6 32.0-36.0 [facility] CampusCvnfjyvHCKUEVMLZH8879-14-51 08:03:00 Test Item Value Reference Range Interpretation Comments RDW (test code = RDW) 20.9 11.5-14.5 [place] 325412-07-25 08:03:00 Test Item Value Reference Range Interpretation Comments Platelet (test code = Platelet) 289 133-450 [facility] CampusSskxdwrYAJCHUYQKR9417-88-90 08:03:00 Test Item Value Reference Range Interpretation Comments MPV (test code = MPV) 7.5 7.4-10.4 [place] 325412-07-25 08:03:00 Test Item Value Reference Range Interpretation Comments Segs (test code = Segs) 94.0 45.0-75.0 [place] [address]-07-25 08:03:00 Test Item Value Reference Range Interpretation Comments Lymphocytes (test code = Lymphocytes) 4.3 20.0-40.0 [place] 325412-07-25 08:03:00 Test Item Value Reference Range Interpretation Comments Monocytes (test code = Monocytes) 1.6 2.0-12.0 [facility] CenterZmrfkwmFOQKEOSCKT3466-73-79 08:03:00 Test Item Value Reference Range Interpretation Comments Basophils (test code = 0.1 See_Comment [Aut omated message] The Basophils) system which ge nerated this result tra nsmitted reference range : <=1.0. The reference r hugo was not used to int erpret this result as normal/abnormal . [facility] CenterRgwhgmdZYXKDCJCVV4358-50-05 08:03:00 Test Item Value Reference Range Interpretation Comments Neutrophils # (test code = Neutrophils 7.0 1.5-8.1 #) [facility] CenterGglrjhoQEYCKORBAR5248-00-70 08:03:00 Test Item Value Reference Range Interpretation Comments Lymphocytes # (test code = Lymphocytes 0.3 1.0-5.5 #) [facility] CenterVsldezqUNBBGAVEQC9576-82-50 08:03:00 Test Item Value Reference Range Interpretation Comments Monocytes # (test code 0.1 See_Comment [Aut omated message] The = Monocytes #) system which generated this result tra nsmitted reference range : <=0.8. The reference r hugo was not used to int erpret this result as normal/abnormal . [facility] CenterThuomaeHAHZODTBMX1951-38-53 08:03:00 Test Item Value Reference Range Interpretation Comments Microcyte (test code = 1+ *ABN*(06/13/22 Microcyte) 3:03 AM) [facility]Jim[facility] 08:03:00 Test Item Value Reference Range Interpretation Comments HS Troponin I 1 Hr (test code = HS 50 Troponin I 1 Hr) [facility] 08:03:00 Test Item Value Reference Range Interpretation Comments HS Troponin I 0 to 1 See Note 5(06/13/22 Hour Delta (test code = 3:03 AM) HS Troponin I 0 to 1 Hour Delta) [facility] [employer] [id number] 08:03:00 Test Item Value Reference Range Interpretation Comments Glucose Lvl (test code = Glucose Lvl) 142 70-99 [facility] CenterSiving Egil KvalebergDIJYH4448-38-32 08:03:00 Test Item Value Reference Range Interpretation Comments BUN (test code = BUN) 21 7- [facility] [employer]2022-07-25 08:03:00 Test Item Value Reference Range Interpretation Comments Creatinine Lvl (test code = Creatinine 0.84 0.50-1.40 Lvl) [facility] [id number] 08:03:00 Test Item Value Reference Range Interpretation Comments Sodium Lvl (test code = Sodium Lvl) 133 135-145 [facility] CenterIRIS.TVN[id number] 08:03:00 Test Item Value Reference Range Interpretation Comments Potassium Lvl (test code = Potassium 4.4 3.5-5.1 Lvl) [facility] CenterIRIS.[facility] CENTEREKPOG3428-75-21 08:03:00 Test Item Value Reference Range Interpretation Comments Chloride Lvl (test code = Chloride Lvl) 98 95-109 [facility] [id number] 08:03:00 Test Item Value Reference Range Interpretation Comments CO2 (test code = CO2) 25 24-32 [facility] CenterIRIS.TVDA[place] [id number] 08:03:00 Test Item Value Reference Range Interpretation Comments AGAP (test code = AGAP) 14.4 10.0-20.0 [facility] [id number] 08:03:00 Test Item Value Reference Range Interpretation Comments Calcium Lvl (test code = Calcium Lvl) 9.1 8.5-10.5 [facility] [id number] 08:03:00 Test Item Value Reference Range Interpretation Comments B/C Ratio (test code = B/C Ratio) 25 1 6-25 [facility] CenterIRIS.TVN[facility] CENTERJVBJZ5118-46-40 08:03:00 Test Item Value Reference Range Interpretation Comments Total Protein (test code = Total 6.7 6.4-8.4 Protein) [facility] CenterIRIS.[facility] CENTERKCCBH2827-81-70 08:03:00 Test Item Value Reference Range Interpretation Comments Albumin Lvl (test code = Albumin Lvl) 3.2 3.5-5.0 [facility] [id number] 08:03:00 Test Item Value Reference Range Interpretation Comments Globulin (test code = Globulin) 3.5 2.7-4.2 [facility] [id number] 08:03:00 Test Item Value Reference Range Interpretation Comments A/G Ratio (test code = A/G Ratio) 0.9 1 0.7-1.6 [facility] CenterIRIS.[place]DA[place] [id number] 08:03:00 Test Item Value Reference Range Interpretation Comments ALT (test code = ALT) 19 See_Comment [Auto mated message] The system which ge nerated this result transmit lavon reference range : <=65. The reference range was not used to interpr et this result as dionne l/abnormal. [facility] [id number] 08:03:00 Test Item Value Reference Range Interpretation Comments AST (test code = AST) 26 See_Comment [Auto mated message] The system which ge nerated this result transmit lavon reference range : <=37. The reference range was not used to interpr et this result as dionne l/abnormal. [facility] [id number] 08:03:00 Test Item Value Reference Range Interpretation Comments Alk Phos (test code = Alk Phos) 56 39-136 [facility] [id number] 08:03:00 Test Item Value Reference Range Interpretation Comments Bili Total (test code = Bili Total) 1.0 0.2-1.3 [facility] [id number] 08:03:00 Test Item Value Reference Range Interpretation Comments eGFR (test code = eGFR) 67 [facility] [id number] 08:03:00 Test Item Value Reference Range Interpretation Comments Magnesium Lvl (test code = Magnesium 1.9 1.8-2.4 Lvl) [facility] [id number] 08:03:00 Test Item Value Reference Range Interpretation Comments Procalcitonin Lvl (test no gt See_Comment [Au tomated message] code = Procalcitonin Lvl) Th e system which generated this result transmitted ref erence range: <=0.10. The reference range was not used to interpr et this result as normal/abnormal . [facility] [id number] 08:03:00 Test Item Value Reference Range Interpretation Comments LDH (test code = LDH) 354 98-192 [facility] HospitalHsgqqxvSUDHOFBUDP3098-76-58 08:03:00 Test Item Value Reference Range Interpretation Comments WBC (test code = WBC) 7.5 3.7-10.4 [place] [address]-07-25 08:03:00 Test Item Value Reference Range Interpretation Comments RBC (test code = RBC) 3.44 4.20-5.40 [facility] HospitalBvrzkwmFRBCLJDWTP6501-20-56 08:03:00 Test Item Value Reference Range Interpretation Comments Hgb (test code = Hgb) 8.3 12.0-16.0 [place] 325412-07-25 08:03:00 Test Item Value Reference Range Interpretation Comments Hct (test code = Hct) 26.2 36.0-48.0 [place] 325412-07-25 08:03:00 Test Item Value Reference Range Interpretation Comments MCV (test code = MCV) 76.1 80.0-98.0 [place] 325412-07-25 08:03:00 Test Item Value Reference Range Interpretation Comments MCH (test code = MCH) 24.0 pg 27.0-31.0 [place] 325412-07-25 08:03:00 Test Item Value Reference Range Interpretation Comments MCHC (test code = MCHC) 31.6 32.0-36.0 [place] 325412-07-25 08:03:00 Test Item Value Reference Range Interpretation Comments RDW (test code = RDW) 20.9 11.5-14.5 [place] 325412-07-25 08:03:00 Test Item Value Reference Range Interpretation Comments Platelet (test code = Platelet) 289 133-450 [facility] CampusEszmhvsINUTGRXPAE9425-22-64 08:03:00 Test Item Value Reference Range Interpretation Comments MPV (test code = MPV) 7.5 7.4-10.4 [place] 325412-07-25 08:03:00 Test Item Value Reference Range Interpretation Comments Segs (test code = Segs) 94.0 45.0-75.0 [place] 325412-07-25 08:03:00 Test Item Value Reference Range Interpretation Comments Lymphocytes (test code = Lymphocytes) 4.3 20.0-40.0 [place] [address]-07-25 08:03:00 Test Item Value Reference Range Interpretation Comments Monocytes (test code = Monocytes) 1.6 2.0-12.0 [place] [address]-07-25 08:03:00 Test Item Value Reference Range Interpretation Comments Basophils (test code = 0.1 See_Comment [Aut omated message] The Basophils) system which ge nerated this result tra nsmitted reference range : <=1.0. The reference r hugo was not used to int erpret this result as normal/abnormal . [facility] HospitalZhrpoqxMSFXOJWTGQ9119-19-46 08:03:00 Test Item Value Reference Range Interpretation Comments Neutrophils # (test code = Neutrophils 7.0 1.5-8.1 #) [facility] CampusHkscdlyHNNBWOMSEA8845-93-93 08:03:00 Test Item Value Reference Range Interpretation Comments Lymphocytes # (test code = Lymphocytes 0.3 1.0-5.5 #) [facility] CampusEczjnbcHCBUSOFPFK2225-78-64 08:03:00 Test Item Value Reference Range Interpretation Comments Monocytes # (test code 0.1 See_Comment [Aut omated message] The = Monocytes #) system which generated this result tra nsmitted reference range : <=0.8. The reference r hugo was not used to int erpret this result as normal/abnormal . [facility] CampusFbrqcryKEHGNMGADW3027-46-95 08:03:00 Test Item Value Reference Range Interpretation Comments Microcyte (test code = 1+ *ABN*(06/13/22 Microcyte) 3:03 AM) [facility] HospitalMister Spex [id number] 08:03:00 Test Item Value Reference Range Interpretation Comments HS Troponin I 1 Hr (test code = HS 50 Troponin I 1 Hr) [facility] HospitalM[facility] [id number] 08:03:00 Test Item Value Reference Range Interpretation Comments HS Troponin I 0 to 1 See Note 5(06/13/22 Hour Delta (test code = 3:03 AM) HS Troponin I 0 to 1 Hour Delta) [facility] [id number] 08:03:00 Test Item Value Reference Range Interpretation Comments Glucose Lvl (test code = Glucose Lvl) 142 70-99 [facility] [id number] 08:03:00 Test Item Value Reference Range Interpretation Comments BUN (test code = BUN) 21 - [facility] [id number] 08:03:00 Test Item Value Reference Range Interpretation Comments Creatinine Lvl (test code = Creatinine 0.84 0.50-1.40 Lvl) [facility] [id number] 08:03:00 Test Item Value Reference Range Interpretation Comments Sodium Lvl (test code = Sodium Lvl) 133 135-145 [facility] [id number] 08:03:00 Test Item Value Reference Range Interpretation Comments Potassium Lvl (test code = Potassium 4.4 3.5-5.1 Lvl) [facility]IRIS.TVDAV[place] [id number] 08:03:00 Test Item Value Reference Range Interpretation Comments Chloride Lvl (test code = Chloride Lvl) 98 95-109 [place] 480482-07-25 08:03:00 Test Item Value Reference Range Interpretation Comments CO2 (test code = CO2) 25 24-32 [place] 480482-07-25 08:03:00 Test Item Value Reference Range Interpretation Comments AGAP (test code = AGAP) 14.4 10.0-20.0 [facility] [id number] 08:03:00 Test Item Value Reference Range Interpretation Comments Calcium Lvl (test code = Calcium Lvl) 9.1 8.5-10.5 [facility] [facility] [id number] 08:03:00 Test Item Value Reference Range Interpretation Comments B/C Ratio (test code = B/C Ratio) 25 1 6-25 [place] 480482-07-25 08:03:00 Test Item Value Reference Range Interpretation Comments Total Protein (test code = Total 6.7 6.4-8.4 Protein) [place] 480482-07-25 08:03:00 Test Item Value Reference Range Interpretation Comments Albumin Lvl (test code = Albumin Lvl) 3.2 3.5-5.0 [place] 480482-07-25 08:03:00 Test Item Value Reference Range Interpretation Comments Globulin (test code = Globulin) 3.5 2.7-4.2 [place] 480482-07-25 08:03:00 Test Item Value Reference Range Interpretation Comments A/G Ratio (test code = A/G Ratio) 0.9 1 0.7-1.6 [place] 480482-07-25 08:03:00 Test Item Value Reference Range Interpretation Comments ALT (test code = ALT) 19 See_Comment [Auto mated message] The system which ge nerated this result transmit lavon reference range : <=65. The reference range was not used to interpr et this result as dionne l/abnormal. [facility] [id number] 08:03:00 Test Item Value Reference Range Interpretation Comments AST (test code = AST) 26 See_Comment [Auto mated message] The system which ge nerated this result transmit lavon reference range : <=37. The reference range was not used to interpr et this result as dionne l/abnormal. [facility] [id number] 08:03:00 Test Item Value Reference Range Interpretation Comments Alk Phos (test code = Alk Phos) 56 39-136 [facility] [id number] 08:03:00 Test Item Value Reference Range Interpretation Comments Bili Total (test code = Bili Total) 1.0 0.2-1.3 [facility] [id number] 08:03:00 Test Item Value Reference Range Interpretation Comments eGFR (test code = eGFR) 67 [place] 480482-07-25 08:03:00 Test Item Value Reference Range Interpretation Comments Magnesium Lvl (test code = Magnesium 1.9 1.8-2.4 Lvl) [place] 480482-07-25 08:03:00 Test Item Value Reference Range Interpretation Comments Procalcitonin Lvl (test no gt See_Comment [Au tomated message] code = Procalcitonin Lvl) Th e system which generated this result transmitted ref erence range: <=0.10. The reference range was not used to interpr et this result as normal/abnormal . [facility] [id number] 08:03:00 Test Item Value Reference Range Interpretation Comments LDH (test code = LDH) 354 98-192 [place] 325412-07-25 08:03:00 Test Item Value Reference Range Interpretation Comments WBC (test code = WBC) 7.5 3.7-10.4 [place] [address]-07-25 08:03:00 Test Item Value Reference Range Interpretation Comments RBC (test code = RBC) 3.44 4.20-5.40 [place] [address]-07-25 08:03:00 Test Item Value Reference Range Interpretation Comments Hgb (test code = Hgb) 8.3 12.0-16.0 [place] [address]-07-25 08:03:00 Test Item Value Reference Range Interpretation Comments Hct (test code = Hct) 26.2 36.0-48.0 [place] [address]-07-25 08:03:00 Test Item Value Reference Range Interpretation Comments MCV (test code = MCV) 76.1 80.0-98.0 [place] 325412-07-25 08:03:00 Test Item Value Reference Range Interpretation Comments MCH (test code = MCH) 24.0 pg 27.0-31.0 [place] 325412-07-25 08:03:00 Test Item Value Reference Range Interpretation Comments MCHC (test code = MCHC) 31.6 32.0-36.0 [place] 325412-07-25 08:03:00 Test Item Value Reference Range Interpretation Comments RDW (test code = RDW) 20.9 11.5-14.5 [place] 325412-07-25 08:03:00 Test Item Value Reference Range Interpretation Comments Platelet (test code = Platelet) 289 133-450 [place] 325412-07-25 08:03:00 Test Item Value Reference Range Interpretation Comments MPV (test code = MPV) 7.5 7.4-10.4 [place] [address]-07-25 08:03:00 Test Item Value Reference Range Interpretation Comments Segs (test code = Segs) 94.0 45.0-75.0 [place] 325412-07-25 08:03:00 Test Item Value Reference Range Interpretation Comments Lymphocytes (test code = Lymphocytes) 4.3 20.0-40.0 [place] 325412-07-25 08:03:00 Test Item Value Reference Range Interpretation Comments Monocytes (test code = Monocytes) 1.6 2.0-12.0 [place] 325412-07-25 08:03:00 Test Item Value Reference Range Interpretation Comments Basophils (test code = 0.1 See_Comment [Aut omated message] The Basophils) system which ge nerated this result tra nsmitted reference range : <=1.0. The reference r hugo was not used to int erpret this result as normal/abnormal . [place] 325412-07-25 08:03:00 Test Item Value Reference Range Interpretation Comments Neutrophils # (test code = Neutrophils 7.0 1.5-8.1 #) [place] 325412-07-25 08:03:00 Test Item Value Reference Range Interpretation Comments Lymphocytes # (test code = Lymphocytes 0.3 1.0-5.5 #) [facility] [id number] 08:03:00 Test Item Value Reference Range Interpretation Comments Monocytes # (test code 0.1 See_Comment [Aut omated message] The = Monocytes #) system which generated this result tra nsmitted reference range : <=0.8. The reference r hugo was not used to int erpret this result as normal/abnormal . [facility] CampusKwzscjcIOARDXDLRK0833-05-25 08:03:00 Test Item Value Reference Range Interpretation Comments Microcyte (test code = 1+ *ABN*(06/13/22 Microcyte) 3:03 AM) [facility] [id number] 08:03:00 Test Item Value Reference Range Interpretation Comments HS Troponin I 1 Hr (test code = HS 50 Troponin I 1 Hr) [facility] [id number] 08:03:00 Test Item Value Reference Range Interpretation Comments HS Troponin I 0 to 1 See Note 5(06/13/22 Hour Delta (test code = 3:03 AM) HS Troponin I 0 to 1 Hour Delta) [facility] [id number] 08:03:00 Test Item Value Reference Range Interpretation Comments Glucose Lvl (test code = Glucose Lvl) 142 70-99 [facility] [id number] 08:03:00 Test Item Value Reference Range Interpretation Comments BUN (test code = BUN) 21 - [facility] [id number] 08:03:00 Test Item Value Reference Range Interpretation Comments Creatinine Lvl (test code = Creatinine 0.84 0.50-1.40 Lvl) [facility] [id number] 08:03:00 Test Item Value Reference Range Interpretation Comments Sodium Lvl (test code = Sodium Lvl) 133 135-145 [facility] [id number] 08:03:00 Test Item Value Reference Range Interpretation Comments Potassium Lvl (test code = Potassium 4.4 3.5-5.1 Lvl) [facility] [id number] 08:03:00 Test Item Value Reference Range Interpretation Comments Chloride Lvl (test code = Chloride Lvl) 98 95-109 [facility] [id number] 08:03:00 Test Item Value Reference Range Interpretation Comments CO2 (test code = CO2) 25 24-32 [place] 480482-07-25 08:03:00 Test Item Value Reference Range Interpretation Comments AGAP (test code = AGAP) 14.4 10.0-20.0 [place] 480482-07-25 08:03:00 Test Item Value Reference Range Interpretation Comments Calcium Lvl (test code = Calcium Lvl) 9.1 8.5-10.5 [place] 480482-07-25 08:03:00 Test Item Value Reference Range Interpretation Comments B/C Ratio (test code = B/C Ratio) 25 1 6-25 [facility] [facility] [id number] 08:03:00 Test Item Value Reference Range Interpretation Comments Total Protein (test code = Total 6.7 6.4-8.4 Protein) [place] 480482-07-25 08:03:00 Test Item Value Reference Range Interpretation Comments Albumin Lvl (test code = Albumin Lvl) 3.2 3.5-5.0 [place] 480482-07-25 08:03:00 Test Item Value Reference Range Interpretation Comments Globulin (test code = Globulin) 3.5 2.7-4.2 [facility] [id number] 08:03:00 Test Item Value Reference Range Interpretation Comments A/G Ratio (test code = A/G Ratio) 0.9 1 0.7-1.6 [place] 480482-07-25 08:03:00 Test Item Value Reference Range Interpretation Comments ALT (test code = ALT) 19 See_Comment [Auto mated message] The system which ge nerated this result transmit lavon reference range : <=65. The reference range was not used to interpr et this result as dionne l/abnormal. [facility] [id number] 08:03:00 Test Item Value Reference Range Interpretation Comments AST (test code = AST) 26 See_Comment [Auto mated message] The system which ge nerated this result transmit lavon reference range : <=37. The reference range was not used to interpr et this result as dionne l/abnormal. [facility] [id number] 08:03:00 Test Item Value Reference Range Interpretation Comments Alk Phos (test code = Alk Phos) 56 39-136 [facility] [place] 736222-07-25 08:03:00 Test Item Value Reference Range Interpretation Comments Bili Total (test code = Bili Total) 1.0 0.2-1.3 [place] [address]-07-25 08:03:00 Test Item Value Reference Range Interpretation Comments eGFR (test code = eGFR) 67 [place] 480482-07-25 08:03:00 Test Item Value Reference Range Interpretation Comments Magnesium Lvl (test code = Magnesium 1.9 1.8-2.4 Lvl) [place] [address]-07-25 08:03:00 Test Item Value Reference Range Interpretation Comments Procalcitonin Lvl (test no gt See_Comment [Au tomated message] code = Procalcitonin Lvl) e system which generated this result transmitted ref erence range: <=0.10. The reference range was not used to interpr et this result as normal/abnormal . [place] 480482-07-25 08:03:00 Test Item Value Reference Range Interpretation Comments LDH (test code = LDH) 354 98-192 [place] 325412-07-25 08:03:00 Test Item Value Reference Range Interpretation Comments WBC (test code = WBC) 7.5 3.7-10.4 [place] [address]-07-25 08:03:00 Test Item Value Reference Range Interpretation Comments RBC (test code = RBC) 3.44 4.20-5.40 [place] [address]-07-25 08:03:00 Test Item Value Reference Range Interpretation Comments Hgb (test code = Hgb) 8.3 12.0-16.0 [place] [address]-07-25 08:03:00 Test Item Value Reference Range Interpretation Comments Hct (test code = Hct) 26.2 36.0-48.0 [place] [address]-07-25 08:03:00 Test Item Value Reference Range Interpretation Comments MCV (test code = MCV) 76.1 80.0-98.0 [place] [address]-07-25 08:03:00 Test Item Value Reference Range Interpretation Comments MCH (test code = MCH) 24.0 pg 27.0-31.0 [place] [address]-07-25 08:03:00 Test Item Value Reference Range Interpretation Comments MCHC (test code = MCHC) 31.6 32.0-36.0 [place] 325412-07-25 08:03:00 Test Item Value Reference Range Interpretation Comments RDW (test code = RDW) 20.9 11.5-14.5 [place] 325412-07-25 08:03:00 Test Item Value Reference Range Interpretation Comments Platelet (test code = Platelet) 289 133-450 [place] 325412-07-25 08:03:00 Test Item Value Reference Range Interpretation Comments MPV (test code = MPV) 7.5 7.4-10.4 [place] [address]-07-25 08:03:00 Test Item Value Reference Range Interpretation Comments Segs (test code = Segs) 94.0 45.0-75.0 [place] 325412-07-25 08:03:00 Test Item Value Reference Range Interpretation Comments Lymphocytes (test code = Lymphocytes) 4.3 20.0-40.0 [place] 325412-07-25 08:03:00 Test Item Value Reference Range Interpretation Comments Monocytes (test code = Monocytes) 1.6 2.0-12.0 [place] [address]-07-25 08:03:00 Test Item Value Reference Range Interpretation Comments Basophils (test code = 0.1 See_Comment [Aut omated message] The Basophils) system which ge nerated this result tra nsmitted reference range : <=1.0. The reference r hugo was not used to int erpret this result as normal/abnormal . [facility] [id number] 08:03:00 Test Item Value Reference Range Interpretation Comments Neutrophils # (test code = Neutrophils 7.0 1.5-8.1 #) [place] [address]-07-25 08:03:00 Test Item Value Reference Range Interpretation Comments Lymphocytes # (test code = Lymphocytes 0.3 1.0-5.5 #) [place] [address]-07-25 08:03:00 Test Item Value Reference Range Interpretation Comments Monocytes # (test code 0.1 See_Comment [Aut omated message] The = Monocytes #) system which generated this result tra nsmitted reference range : <=0.8. The reference r hugo was not used to int erpret this result as normal/abnormal . [facility] [id number] 08:03:00 Test Item Value Reference Range Interpretation Comments Microcyte (test code = 1+ *ABN*(06/13/22 Microcyte) 3:03 AM) [facility] [id number] 08:03:00 Test Item Value Reference Range Interpretation Comments HS Troponin I 1 Hr (test code = HS 50 Troponin I 1 Hr) [facility] [id number] 08:03:00 Test Item Value Reference Range Interpretation Comments HS Troponin I 0 to 1 See Note 5(06/13/22 Hour Delta (test code = 3:03 AM) HS Troponin I 0 to 1 Hour Delta) [facility] [id number] 08:03:00 Test Item Value Reference Range Interpretation Comments Glucose Lvl (test code = Glucose Lvl) 142 70-99 [facility] [id number] 08:03:00 Test Item Value Reference Range Interpretation Comments BUN (test code = BUN) 21 06-10 [facility] [id number] 08:03:00 Test Item Value Reference Range Interpretation Comments Creatinine Lvl (test code = Creatinine 0.84 0.50-1.40 Lvl) [facility] [id number] 08:03:00 Test Item Value Reference Range Interpretation Comments Sodium Lvl (test code = Sodium Lvl) 133 135-145 [facility] [id number] 08:03:00 Test Item Value Reference Range Interpretation Comments Potassium Lvl (test code = Potassium 4.4 3.5-5.1 Lvl) [facility] [id number] 08:03:00 Test Item Value Reference Range Interpretation Comments Chloride Lvl (test code = Chloride Lvl) 98 95-109 [facility] [id number] 08:03:00 Test Item Value Reference Range Interpretation Comments CO2 (test code = CO2) 25 24-32 [facility] [id number] 08:03:00 Test Item Value Reference Range Interpretation Comments AGAP (test code = AGAP) 14.4 10.0-20.0 [facility] [id number] 08:03:00 Test Item Value Reference Range Interpretation Comments Calcium Lvl (test code = Calcium Lvl) 9.1 8.5-10.5 [place] 480482-07-25 08:03:00 Test Item Value Reference Range Interpretation Comments B/C Ratio (test code = B/C Ratio) 25 1 6-25 [place] 480482-07-25 08:03:00 Test Item Value Reference Range Interpretation Comments Total Protein (test code = Total 6.7 6.4-8.4 Protein) [place] 480482-07-25 08:03:00 Test Item Value Reference Range Interpretation Comments Albumin Lvl (test code = Albumin Lvl) 3.2 3.5-5.0 [place] 480482-07-25 08:03:00 Test Item Value Reference Range Interpretation Comments Globulin (test code = Globulin) 3.5 2.7-4.2 [place] 480482-07-25 08:03:00 Test Item Value Reference Range Interpretation Comments A/G Ratio (test code = A/G Ratio) 0.9 1 0.7-1.6 [place] 480482-07-25 08:03:00 Test Item Value Reference Range Interpretation Comments ALT (test code = ALT) 19 See_Comment [Auto mated message] The system which ge nerated this result transmit lavon reference range : <=65. The reference range was not used to interpr et this result as dionne l/abnormal. [facility] [id number] 08:03:00 Test Item Value Reference Range Interpretation Comments AST (test code = AST) 26 See_Comment [Auto mated message] The system which ge nerated this result transmit lavon reference range : <=37. The reference range was not used to interpr et this result as dionne l/abnormal. [facility] [id number] 08:03:00 Test Item Value Reference Range Interpretation Comments Alk Phos (test code = Alk Phos) 56 39-136 [facility] [id number] 08:03:00 Test Item Value Reference Range Interpretation Comments Bili Total (test code = Bili Total) 1.0 0.2-1.3 [facility] [id number] 08:03:00 Test Item Value Reference Range Interpretation Comments eGFR (test code = eGFR) 67 [facility] [id number] 08:03:00 Test Item Value Reference Range Interpretation Comments Magnesium Lvl (test code = Magnesium 1.9 1.8-2.4 Lvl) [facility]2022-07-25 08:03:00 Test Item Value Reference Range Interpretation Comments Procalcitonin Lvl (test no gt See_Comment [Au tomated message] code = Procalcitonin Lvl) e system which generated this result transmitted ref erence range: <=0.10. The reference range was not used to interpr et this result as normal/abnormal . [facility]2022-07-25 08:03:00 Test Item Value Reference Range Interpretation Comments LDH (test code = LDH) 354 98-192 [facility] [id number] 08:03:00 Test Item Value Reference Range Interpretation Comments WBC (test code = WBC) 7.5 3.7-10.4 [place] 325412-07-25 08:03:00 Test Item Value Reference Range Interpretation Comments RBC (test code = RBC) 3.44 4.20-5.40 [facility] [id number] 08:03:00 Test Item Value Reference Range Interpretation Comments Hgb (test code = Hgb) 8.3 12.0-16.0 [facility] [id number] 08:03:00 Test Item Value Reference Range Interpretation Comments Hct (test code = Hct) 26.2 36.0-48.0 [place] 325412-07-25 08:03:00 Test Item Value Reference Range Interpretation Comments MCV (test code = MCV) 76.1 80.0-98.0 [place] 325412-07-25 08:03:00 Test Item Value Reference Range Interpretation Comments MCH (test code = MCH) 24.0 pg 27.0-31.0 [facility] [id number] 08:03:00 Test Item Value Reference Range Interpretation Comments MCHC (test code = MCHC) 31.6 32.0-36.0 [place] 325412-07-25 08:03:00 Test Item Value Reference Range Interpretation Comments RDW (test code = RDW) 20.9 11.5-14.5 [place] 325412-07-25 08:03:00 Test Item Value Reference Range Interpretation Comments Platelet (test code = Platelet) 289 133-450 [facility] [id number] 08:03:00 Test Item Value Reference Range Interpretation Comments MPV (test code = MPV) 7.5 7.4-10.4 [facility] C[id number] 08:03:00 Test Item Value Reference Range Interpretation Comments Segs (test code = Segs) 94.0 45.0-75.0 [facility] C[id number] 08:03:00 Test Item Value Reference Range Interpretation Comments Lymphocytes (test code = Lymphocytes) 4.3 20.0-40.0 [facility] [id number] 08:03:00 Test Item Value Reference Range Interpretation Comments Monocytes (test code = Monocytes) 1.6 2.0-12.0 [facility] [id number] 08:03:00 Test Item Value Reference Range Interpretation Comments Basophils (test code = 0.1 See_Comment [Aut omated message] The Basophils) system which ge nerated this result tra nsmitted reference range : <=1.0. The reference r hugo was not used to int erpret this result as normal/abnormal . [facility] [id number] 08:03:00 Test Item Value Reference Range Interpretation Comments Neutrophils # (test code = Neutrophils 7.0 1.5-8.1 #) [facility] CampusIndcvqkDBTOLYKFLE5576-76-27 08:03:00 Test Item Value Reference Range Interpretation Comments Lymphocytes # (test code = Lymphocytes 0.3 1.0-5.5 #) [facility] [id number] 08:03:00 Test Item Value Reference Range Interpretation Comments Monocytes # (test code 0.1 See_Comment [Aut omated message] The = Monocytes #) system which generated this result tra nsmitted reference range : <=0.8. The reference r hugo was not used to int erpret this result as normal/abnormal . [facility] [id number] 08:03:00 Test Item Value Reference Range Interpretation Comments Microcyte (test code = 1+ *ABN*(06/13/22 Microcyte) 3:03 AM) [facility]2022-07-25 08:03:00 Test Item Value Reference Range Interpretation Comments HS Troponin I 1 Hr (test code = HS 50 Troponin I 1 Hr) [facility] [id number] 08:03:00 Test Item Value Reference Range Interpretation Comments HS Troponin I 0 to 1 See Note 5(06/13/22 Hour Delta (test code = 3:03 AM) HS Troponin I 0 to 1 Hour Delta) [facility] [id number] 08:03:00 Test Item Value Reference Range Interpretation Comments Glucose Lvl (test code = Glucose Lvl) 142 70-99 [facility]2022-07-25 08:03:00 Test Item Value Reference Range Interpretation Comments BUN (test code = BUN) 21 7- [facility]2022-07-25 08:03:00 Test Item Value Reference Range Interpretation Comments Creatinine Lvl (test code = Creatinine 0.84 0.50-1.40 Lvl) [facility]2022-07-25 08:03:00 Test Item Value Reference Range Interpretation Comments Sodium Lvl (test code = Sodium Lvl) 133 135-145 [facility]2022-07-25 08:03:00 Test Item Value Reference Range Interpretation Comments Potassium Lvl (test code = Potassium 4.4 3.5-5.1 Lvl) [facility]2022-07-25 08:03:00 Test Item Value Reference Range Interpretation Comments Chloride Lvl (test code = Chloride Lvl) 98 95-109 [facility]2022-07-25 08:03:00 Test Item Value Reference Range Interpretation Comments CO2 (test code = CO2) 25 24-32 [facility]2022-07-25 08:03:00 Test Item Value Reference Range Interpretation Comments AGAP (test code = AGAP) 14.4 10.0-20.0 [facility]2022-07-25 08:03:00 Test Item Value Reference Range Interpretation Comments Calcium Lvl (test code = Calcium Lvl) 9.1 8.5-10.5 [facility]2022-07-25 08:03:00 Test Item Value Reference Range Interpretation Comments B/C Ratio (test code = B/C Ratio) 25 1 6-25 [facility]2022-07-25 08:03:00 Test Item Value Reference Range Interpretation Comments Total Protein (test code = Total 6.7 6.4-8.4 Protein) [facility] [id number] 08:03:00 Test Item Value Reference Range Interpretation Comments Albumin Lvl (test code = Albumin Lvl) 3.2 3.5-5.0 [place] [address]-07-25 08:03:00 Test Item Value Reference Range Interpretation Comments Globulin (test code = Globulin) 3.5 2.7-4.2 [facility] [id number] 08:03:00 Test Item Value Reference Range Interpretation Comments A/G Ratio (test code = A/G Ratio) 0.9 1 0.7-1.6 [facility] [id number] 08:03:00 Test Item Value Reference Range Interpretation Comments ALT (test code = ALT) 19 See_Comment [Auto mated message] The system which ge nerated this result transmit lavon reference range : <=65. The reference range was not used to interpr et this result as dionne l/abnormal. [facility] [id number] 08:03:00 Test Item Value Reference Range Interpretation Comments AST (test code = AST) 26 See_Comment [Auto mated message] The system which ge nerated this result transmit lavon reference range : <=37. The reference range was not used to interpr et this result as dionne l/abnormal. [facility] [id number] 08:03:00 Test Item Value Reference Range Interpretation Comments Alk Phos (test code = Alk Phos) 56 39-136 [facility] [id number] 08:03:00 Test Item Value Reference Range Interpretation Comments Bili Total (test code = Bili Total) 1.0 0.2-1.3 [facility] [id number] 08:03:00 Test Item Value Reference Range Interpretation Comments eGFR (test code = eGFR) 67 [facility] [id number] 08:03:00 Test Item Value Reference Range Interpretation Comments Magnesium Lvl (test code = Magnesium 1.9 1.8-2.4 Lvl) [facility] [id number] 08:03:00 Test Item Value Reference Range Interpretation Comments Procalcitonin Lvl (test no gt See_Comment [Au tomated message] code = Procalcitonin Lvl) Th e system which generated this result transmitted ref erence range: <=0.10. The reference range was not used to interpr et this result as normal/abnormal . [facility]2022-07-25 08:03:00 Test Item Value Reference Range Interpretation Comments LDH (test code = LDH) 354 98-192 [facility] CampusLchzpcvOPMHVVSXQY6997-12-55 08:03:00 Test Item Value Reference Range Interpretation Comments WBC (test code = WBC) 7.5 3.7-10.4 [facility] CampusUwlxqkcWTDTXTBDBO6137-10-05 08:03:00 Test Item Value Reference Range Interpretation Comments RBC (test code = RBC) 3.44 4.20-5.40 [facility] CampusKbxlqnuLJBRFURCYS8602-49-34 08:03:00 Test Item Value Reference Range Interpretation Comments Hgb (test code = Hgb) 8.3 12.0-16.0 [facility] CampusRtlhnjkDWZCJJDNAZ3370-84-40 08:03:00 Test Item Value Reference Range Interpretation Comments Hct (test code = Hct) 26.2 36.0-48.0 [facility] CampusKojnvmrCSKDKZQSHJ8391-80-69 08:03:00 Test Item Value Reference Range Interpretation Comments MCV (test code = MCV) 76.1 80.0-98.0 [facility] CampusRwdgxdbKKOUNJPELM8646-52-23 08:03:00 Test Item Value Reference Range Interpretation Comments MCH (test code = MCH) 24.0 pg 27.0-31.0 [facility] CampusTwybnfmNYOPUMLDXX4971-46-50 08:03:00 Test Item Value Reference Range Interpretation Comments MCHC (test code = MCHC) 31.6 32.0-36.0 [facility] CampusArrvffmFPYQJRQYIS2650-90-28 08:03:00 Test Item Value Reference Range Interpretation Comments RDW (test code = RDW) 20.9 11.5-14.5 [place] 325412-07-25 08:03:00 Test Item Value Reference Range Interpretation Comments Platelet (test code = Platelet) 289 133-450 [facility] CampusHtiaebdEZGWYNWNUM3886-01-59 08:03:00 Test Item Value Reference Range Interpretation Comments MPV (test code = MPV) 7.5 7.4-10.4 [facility] CampusPrmgapuLWAZCQQDGE0850-21-06 08:03:00 Test Item Value Reference Range Interpretation Comments Segs (test code = Segs) 94.0 45.0-75.0 [facility] CampusRurxynbTCIQPLPQRP7442-86-99 08:03:00 Test Item Value Reference Range Interpretation Comments Lymphocytes (test code = Lymphocytes) 4.3 20.0-40.0 [facility] CampusUetenfqCINLOIKNPZ4876-05-96 08:03:00 Test Item Value Reference Range Interpretation Comments Monocytes (test code = Monocytes) 1.6 2.0-12.0 [facility] CampusCvtzhkkGTWTYHTFRK0243-91-58 08:03:00 Test Item Value Reference Range Interpretation Comments Basophils (test code = 0.1 See_Comment [Aut omated message] The Basophils) system which ge nerated this result tra nsmitted reference range : <=1.0. The reference r hugo was not used to int erpret this result as normal/abnormal . [facility] CampusVnmzuppIVHTJWGMWN0866-03-81 08:03:00 Test Item Value Reference Range Interpretation Comments Neutrophils # (test code = Neutrophils 7.0 1.5-8.1 #) [facility] CampusMzhkztbMKMGAUXHYQ0871-69-98 08:03:00 Test Item Value Reference Range Interpretation Comments Lymphocytes # (test code = Lymphocytes 0.3 1.0-5.5 #) [facility] CampusFmmfmvlNSMVVIIVUH5689-08-95 08:03:00 Test Item Value Reference Range Interpretation Comments Monocytes # (test code 0.1 See_Comment [Aut omated message] The = Monocytes #) system which generated this result tra nsmitted reference range : <=0.8. The reference r hugo was not used to int erpret this result as normal/abnormal . [facility]PuaddfrIVZAKCUPBD4156-19-53 08:03:00 Test Item Value Reference Range Interpretation Comments Microcyte (test code = 1+ *ABN*(06/13/22 Microcyte) 3:03 AM) [facility] HospitaliFitLGFOZAB0680-16-33 08:03:00 Test Item Value Reference Range Interpretation Comments HS Troponin I 1 Hr (test code = HS 50 Troponin I 1 Hr) [facility] [id number] 08:03:00 Test Item Value Reference Range Interpretation Comments HS Troponin I 0 to 1 See Note 5(06/13/22 Hour Delta (test code = 3:03 AM) HS Troponin I 0 to 1 Hour Delta) [facility] HospitalLiquidTalk [id number] 08:03:00 Test Item Value Reference Range Interpretation Comments Glucose Lvl (test code = Glucose Lvl) 142 70-99 [place] 480482-07-25 08:03:00 Test Item Value Reference Range Interpretation Comments BUN (test code = BUN) 21 7-22 [place] 480482-07-25 08:03:00 Test Item Value Reference Range Interpretation Comments Creatinine Lvl (test code = Creatinine 0.84 0.50-1.40 Lvl) [facility]2022-07-25 08:03:00 Test Item Value Reference Range Interpretation Comments Sodium Lvl (test code = Sodium Lvl) 133 135-145 [place] 480482-07-25 08:03:00 Test Item Value Reference Range Interpretation Comments Potassium Lvl (test code = Potassium 4.4 3.5-5.1 Lvl) [facility]2022-07-25 08:03:00 Test Item Value Reference Range Interpretation Comments Chloride Lvl (test code = Chloride Lvl) 98 95-109 [place] 480482-07-25 08:03:00 Test Item Value Reference Range Interpretation Comments CO2 (test code = CO2) 25 24-32 [place] 480482-07-25 08:03:00 Test Item Value Reference Range Interpretation Comments AGAP (test code = AGAP) 14.4 10.0-20.0 [place] 480482-07-25 08:03:00 Test Item Value Reference Range Interpretation Comments Calcium Lvl (test code = Calcium Lvl) 9.1 8.5-10.5 [place] 480482-07-25 08:03:00 Test Item Value Reference Range Interpretation Comments B/C Ratio (test code = B/C Ratio) 25 1 6-25 [place] 480482-07-25 08:03:00 Test Item Value Reference Range Interpretation Comments Total Protein (test code = Total 6.7 6.4-8.4 Protein) [facility]2022-07-25 08:03:00 Test Item Value Reference Range Interpretation Comments Albumin Lvl (test code = Albumin Lvl) 3.2 3.5-5.0 [place] 480482-07-25 08:03:00 Test Item Value Reference Range Interpretation Comments Globulin (test code = Globulin) 3.5 2.7-4.2 [facility] [id number] 08:03:00 Test Item Value Reference Range Interpretation Comments A/G Ratio (test code = A/G Ratio) 0.9 1 0.7-1.6 [facility] [id number] 08:03:00 Test Item Value Reference Range Interpretation Comments ALT (test code = ALT) 19 See_Comment [Auto mated message] The system which ge nerated this result transmit lavon reference range : <=65. The reference range was not used to interpr et this result as dionne l/abnormal. [facility] [id number] 08:03:00 Test Item Value Reference Range Interpretation Comments AST (test code = AST) 26 See_Comment [Auto mated message] The system which ge nerated this result transmit lavon reference range : <=37. The reference range was not used to interpr et this result as dionne l/abnormal. [facility] [id number] 08:03:00 Test Item Value Reference Range Interpretation Comments Alk Phos (test code = Alk Phos) 56 39-136 [facility] [id number] 08:03:00 Test Item Value Reference Range Interpretation Comments Bili Total (test code = Bili Total) 1.0 0.2-1.3 [facility] [id number] 08:03:00 Test Item Value Reference Range Interpretation Comments eGFR (test code = eGFR) 67 [facility] [id number] 08:03:00 Test Item Value Reference Range Interpretation Comments Magnesium Lvl (test code = Magnesium 1.9 1.8-2.4 Lvl) [facility] [id number] 08:03:00 Test Item Value Reference Range Interpretation Comments Procalcitonin Lvl (test no gt See_Comment [Au tomated message] code = Procalcitonin Lvl) Th e system which generated this result transmitted ref erence range: <=0.10. The reference range was not used to interpr et this result as normal/abnormal . [facility] [id number] 08:03:00 Test Item Value Reference Range Interpretation Comments LDH (test code = LDH) 354 98-192 [facility] CampusSzkmabqTBRCZZTGLW9107-64-98 08:03:00 Test Item Value Reference Range Interpretation Comments WBC (test code = WBC) 7.5 3.7-10.4 [facility] CampusSosigexRMFXXVIYMH5505-48-12 08:03:00 Test Item Value Reference Range Interpretation Comments RBC (test code = RBC) 3.44 4.20-5.40 [facility] CampusJbfvmziGCZOPEAIGN1063-71-36 08:03:00 Test Item Value Reference Range Interpretation Comments Hgb (test code = Hgb) 8.3 12.0-16.0 [place] 325412-07-25 08:03:00 Test Item Value Reference Range Interpretation Comments Hct (test code = Hct) 26.2 36.0-48.0 [facility] CampusCipiuqlPXTUHHRJXG4316-21-50 08:03:00 Test Item Value Reference Range Interpretation Comments MCV (test code = MCV) 76.1 80.0-98.0 [facility] CampusWrxnrraBSEOXRWZAR9995-89-50 08:03:00 Test Item Value Reference Range Interpretation Comments MCH (test code = MCH) 24.0 pg 27.0-31.0 [facility] CampusRijleyjXHFRCQPGWH7074-97-62 08:03:00 Test Item Value Reference Range Interpretation Comments MCHC (test code = MCHC) 31.6 32.0-36.0 [facility] CampusEtcufvyRCYGLQWJNU5065-40-56 08:03:00 Test Item Value Reference Range Interpretation Comments RDW (test code = RDW) 20.9 11.5-14.5 [facility] CampusUdcemmvETYAYJVQAE2851-95-21 08:03:00 Test Item Value Reference Range Interpretation Comments Platelet (test code = Platelet) 289 133-450 [facility] CampusXavjzkyZGVAFJBFFU6704-94-43 08:03:00 Test Item Value Reference Range Interpretation Comments MPV (test code = MPV) 7.5 7.4-10.4 [facility] CampusDplwburXEIPFKUIST8285-26-89 08:03:00 Test Item Value Reference Range Interpretation Comments Segs (test code = Segs) 94.0 45.0-75.0 [facility] CampusFaheeqoCCEAXSQHCP5215-87-55 08:03:00 Test Item Value Reference Range Interpretation Comments Lymphocytes (test code = Lymphocytes) 4.3 20.0-40.0 [facility] CampusTepvwduKILQULZSUD5126-42-12 08:03:00 Test Item Value Reference Range Interpretation Comments Monocytes (test code = Monocytes) 1.6 2.0-12.0 [facility] CenterQpqgxcqLHJCKNWWLY4018-22-24 08:03:00 Test Item Value Reference Range Interpretation Comments Basophils (test code = 0.1 See_Comment [Aut omated message] The Basophils) system which ge nerated this result tra nsmitted reference range : <=1.0. The reference r hugo was not used to int erpret this result as normal/abnormal . [facility] CenterIqmblleXTTXPJVBYM0716-90-18 08:03:00 Test Item Value Reference Range Interpretation Comments Neutrophils # (test code = Neutrophils 7.0 1.5-8.1 #) [facility] CenterChqqvkaYMMSHQYMAS1334-07-70 08:03:00 Test Item Value Reference Range Interpretation Comments Lymphocytes # (test code = Lymphocytes 0.3 1.0-5.5 #) [facility] CenterJwogwkaSVWGJEGFMN7962-95-32 08:03:00 Test Item Value Reference Range Interpretation Comments Monocytes # (test code 0.1 See_Comment [Aut omated message] The = Monocytes #) system which generated this result tra nsmitted reference range : <=0.8. The reference r hugo was not used to int erpret this result as normal/abnormal . [facility] CenterTvkwuqgUJTJOPINUN5938-51-87 08:03:00 Test Item Value Reference Range Interpretation Comments Microcyte (test code = 1+ *ABN*(06/13/22 Microcyte) 3:03 AM) [facility]2022-07-25 08:03:00 Test Item Value Reference Range Interpretation Comments HS Troponin I 1 Hr (test code = HS 50 Troponin I 1 Hr) [facility]2022-07-25 08:03:00 Test Item Value Reference Range Interpretation Comments HS Troponin I 0 to 1 See Note 5(06/13/22 Hour Delta (test code = 3:03 AM) HS Troponin I 0 to 1 Hour Delta) [facility] [employer]2022-07-25 08:03:00 Test Item Value Reference Range Interpretation Comments Glucose Lvl (test code = Glucose Lvl) 142 70-99 [facility] [employer] [facility]2022-07-25 08:03:00 Test Item Value Reference Range Interpretation Comments BUN (test code = BUN) 21 06-10 Nymirum2-07-25 08:03:00 Test Item Value Reference Range Interpretation Comments Creatinine Lvl (test code = Creatinine 0.84 0.50-1.40 Lvl) [facility]2022-07-25 08:03:00 Test Item Value Reference Range Interpretation Comments Sodium Lvl (test code = Sodium Lvl) 133 135-145 [place] 480482-07-25 08:03:00 Test Item Value Reference Range Interpretation Comments Potassium Lvl (test code = Potassium 4.4 3.5-5.1 Lvl) [facility]2022-07-25 08:03:00 Test Item Value Reference Range Interpretation Comments Chloride Lvl (test code = Chloride Lvl) 98 95-109 [place] 480482-07-25 08:03:00 Test Item Value Reference Range Interpretation Comments CO2 (test code = CO2) -32 [place] 480482-07-25 08:03:00 Test Item Value Reference Range Interpretation Comments AGAP (test code = AGAP) 14.4 10.0-20.0 [place] 480482-07-25 08:03:00 Test Item Value Reference Range Interpretation Comments Calcium Lvl (test code = Calcium Lvl) 9.1 8.5-10.5 [place] 480482-07-25 08:03:00 Test Item Value Reference Range Interpretation Comments B/C Ratio (test code = B/C Ratio) 25 1 6-25 [place] 480482-07-25 08:03:00 Test Item Value Reference Range Interpretation Comments Total Protein (test code = Total 6.7 6.4-8.4 Protein) [place] 480482-07-25 08:03:00 Test Item Value Reference Range Interpretation Comments Albumin Lvl (test code = Albumin Lvl) 3.2 3.5-5.0 [place] 480482-07-25 08:03:00 Test Item Value Reference Range Interpretation Comments Globulin (test code = Globulin) 3.5 2.7-4.2 [place] 480482-07-25 08:03:00 Test Item Value Reference Range Interpretation Comments A/G Ratio (test code = A/G Ratio) 0.9 1 0.7-1.6 [place] 480482-07-25 08:03:00 Test Item Value Reference Range Interpretation Comments ALT (test code = ALT) 19 See_Comment [Auto mated message] The system which ge nerated this result transmit lavon reference range : <=65. The reference range was not used to interpr et this result as dionne l/abnormal. [facility] [employer] [id number] 08:03:00 Test Item Value Reference Range Interpretation Comments AST (test code = AST) 26 See_Comment [Auto mated message] The system which ge nerated this result transmit lavon reference range : <=37. The reference range was not used to interpr et this result as dionne l/abnormal. [facility] [employer] [id number] 08:03:00 Test Item Value Reference Range Interpretation Comments Alk Phos (test code = Alk Phos) 56 39-136 [facility] [employer] [id number] 08:03:00 Test Item Value Reference Range Interpretation Comments Bili Total (test code = Bili Total) 1.0 0.2-1.3 [facility] [employer] [id number] 08:03:00 Test Item Value Reference Range Interpretation Comments eGFR (test code = eGFR) 67 [facility] [id number] 08:03:00 Test Item Value Reference Range Interpretation Comments Magnesium Lvl (test code = Magnesium 1.9 1.8-2.4 Lvl) [facility] [id number] 08:03:00 Test Item Value Reference Range Interpretation Comments Procalcitonin Lvl (test no gt See_Comment [Au tomated message] code = Procalcitonin Lvl) Th e system which generated this result transmitted ref erence range: <=0.10. The reference range was not used to interpr et this result as normal/abnormal . [facility] [employer] [id number] 08:03:00 Test Item Value Reference Range Interpretation Comments LDH (test code = LDH) 354 98-192 [facility] CenterBtjycqaLYKHFPVOPF9333-07-86 08:03:00 Test Item Value Reference Range Interpretation Comments WBC (test code = WBC) 7.5 3.7-10.4 [facility] CenterXcoritoHYUHCTRRYP7561-97-21 08:03:00 Test Item Value Reference Range Interpretation Comments RBC (test code = RBC) 3.44 4.20-5.40 [facility] CenterMhbwnhwXNGGLEHIWF9387-02-37 08:03:00 Test Item Value Reference Range Interpretation Comments Hgb (test code = Hgb) 8.3 12.0-16.0 [facility] CampusUgqabimITHRSQDNFC7088-77-39 08:03:00 Test Item Value Reference Range Interpretation Comments Hct (test code = Hct) 26.2 36.0-48.0 [facility] CampusUfyluclBXHGOLQAZV9039-86-79 08:03:00 Test Item Value Reference Range Interpretation Comments MCV (test code = MCV) 76.1 80.0-98.0 [facility] CampusCihuljyGNTIJUGSHO6710-27-47 08:03:00 Test Item Value Reference Range Interpretation Comments MCH (test code = MCH) 24.0 pg 27.0-31.0 [facility] CampusMrryqvzNAFRNTZTRH0961-32-47 08:03:00 Test Item Value Reference Range Interpretation Comments MCHC (test code = MCHC) 31.6 32.0-36.0 [facility] CampusVeogkueUNQORSSFVR1353-50-57 08:03:00 Test Item Value Reference Range Interpretation Comments RDW (test code = RDW) 20.9 11.5-14.5 [facility] CampusCqzlwraHSRUJNVAPQ8734-93-30 08:03:00 Test Item Value Reference Range Interpretation Comments Platelet (test code = Platelet) 289 133-450 [facility] CampusRnsxbbaMAKQNYKMBS6144-73-21 08:03:00 Test Item Value Reference Range Interpretation Comments MPV (test code = MPV) 7.5 7.4-10.4 [place] 325412-07-25 08:03:00 Test Item Value Reference Range Interpretation Comments Segs (test code = Segs) 94.0 45.0-75.0 [facility] CampusKmbmysfEXUIUBKZQQ2806-04-42 08:03:00 Test Item Value Reference Range Interpretation Comments Lymphocytes (test code = Lymphocytes) 4.3 20.0-40.0 [place] 325412-07-25 08:03:00 Test Item Value Reference Range Interpretation Comments Monocytes (test code = Monocytes) 1.6 2.0-12.0 [place] 325412-07-25 08:03:00 Test Item Value Reference Range Interpretation Comments Basophils (test code = 0.1 See_Comment [Aut omated message] The Basophils) system which ge nerated this result tra nsmitted reference range : <=1.0. The reference r hugo was not used to int erpret this result as normal/abnormal . [facility] CampusEqxeiuzAJXSVBQLQD2965-21-14 08:03:00 Test Item Value Reference Range Interpretation Comments Neutrophils # (test code = Neutrophils 7.0 1.5-8.1 #) [facility] CampusRpcoowtTIWXKBFKJS3128-79-02 08:03:00 Test Item Value Reference Range Interpretation Comments Lymphocytes # (test code = Lymphocytes 0.3 1.0-5.5 #) [facility] CampusHefrkybKOBTYVZDPH3271-46-18 08:03:00 Test Item Value Reference Range Interpretation Comments Monocytes # (test code 0.1 See_Comment [Aut omated message] The = Monocytes #) system which generated this result tra nsmitted reference range : <=0.8. The reference r hugo was not used to int erpret this result as normal/abnormal . [facility] CampusLcgejmkLQJEKSVNGJ5231-68-68 08:03:00 Test Item Value Reference Range Interpretation Comments Microcyte (test code = 1+ *ABN*(06/13/22 Microcyte) 3:03 AM) [facility] [id number] 08:03:00 Test Item Value Reference Range Interpretation Comments HS Troponin I 1 Hr (test code = HS 50 Troponin I 1 Hr) [facility] CenterACTV8 FWWYPZR9764-25-39 08:03:00 Test Item Value Reference Range Interpretation Comments HS Troponin I 0 to 1 See Note 5(06/13/22 Hour Delta (test code = 3:03 AM) HS Troponin I 0 to 1 Hour Delta) [facility] CenterSiving Egil KvalebergWFEJR7348-36-10 08:03:00 Test Item Value Reference Range Interpretation Comments Glucose Lvl (test code = Glucose Lvl) 142 70-99 [facility] [id number] 08:03:00 Test Item Value Reference Range Interpretation Comments BUN (test code = BUN) 21 - [facility] [id number] 08:03:00 Test Item Value Reference Range Interpretation Comments Creatinine Lvl (test code = Creatinine 0.84 0.50-1.40 Lvl) [facility] [id number] 08:03:00 Test Item Value Reference Range Interpretation Comments Sodium Lvl (test code = Sodium Lvl) 133 135-145 [facility] [id number] 08:03:00 Test Item Value Reference Range Interpretation Comments Potassium Lvl (test code = Potassium 4.4 3.5-5.1 Lvl) [place] 480482-07-25 08:03:00 Test Item Value Reference Range Interpretation Comments Chloride Lvl (test code = Chloride Lvl) 98 95-109 [place] 480482-07-25 08:03:00 Test Item Value Reference Range Interpretation Comments CO2 (test code = CO2) 25 24-32 [place] 480482-07-25 08:03:00 Test Item Value Reference Range Interpretation Comments AGAP (test code = AGAP) 14.4 10.0-20.0 [place] 480482-07-25 08:03:00 Test Item Value Reference Range Interpretation Comments Calcium Lvl (test code = Calcium Lvl) 9.1 8.5-10.5 [place] 480482-07-25 08:03:00 Test Item Value Reference Range Interpretation Comments B/C Ratio (test code = B/C Ratio) 25 1 6-25 [place] 480482-07-25 08:03:00 Test Item Value Reference Range Interpretation Comments Total Protein (test code = Total 6.7 6.4-8.4 Protein) [place] 480482-07-25 08:03:00 Test Item Value Reference Range Interpretation Comments Albumin Lvl (test code = Albumin Lvl) 3.2 3.5-5.0 [place] 480482-07-25 08:03:00 Test Item Value Reference Range Interpretation Comments Globulin (test code = Globulin) 3.5 2.7-4.2 [place] 480482-07-25 08:03:00 Test Item Value Reference Range Interpretation Comments A/G Ratio (test code = A/G Ratio) 0.9 1 0.7-1.6 [place] 480482-07-25 08:03:00 Test Item Value Reference Range Interpretation Comments ALT (test code = ALT) 19 See_Comment [Auto mated message] The system which ge nerated this result transmit lavon reference range : <=65. The reference range was not used to interpr et this result as dionne l/abnormal. [place] 480482-07-25 08:03:00 Test Item Value Reference Range Interpretation Comments AST (test code = AST) 26 See_Comment [Auto mated message] The system which ge nerated this result transmit lavon reference range : <=37. The reference range was not used to interpr et this result as dionne l/abnormal. [facility] [id number] 08:03:00 Test Item Value Reference Range Interpretation Comments Alk Phos (test code = Alk Phos) 56 39-136 [facility] [id number] 08:03:00 Test Item Value Reference Range Interpretation Comments Bili Total (test code = Bili Total) 1.0 0.2-1.3 [facility] [id number] 08:03:00 Test Item Value Reference Range Interpretation Comments eGFR (test code = eGFR) 67 [facility] [id number] 08:03:00 Test Item Value Reference Range Interpretation Comments Magnesium Lvl (test code = Magnesium 1.9 1.8-2.4 Lvl) [facility] [id number] 08:03:00 Test Item Value Reference Range Interpretation Comments Procalcitonin Lvl (test no gt See_Comment [Au tomated message] code = Procalcitonin Lvl) Th e system which generated this result transmitted ref erence range: <=0.10. The reference range was not used to interpr et this result as normal/abnormal . [facility] [id number] 08:03:00 Test Item Value Reference Range Interpretation Comments LDH (test code = LDH) 354 98-192 [facility] HospitalDrydpzcKMWFJGWMKD6763-16-96 08:03:00 Test Item Value Reference Range Interpretation Comments WBC (test code = WBC) 7.5 3.7-10.4 [place] [address]-07-25 08:03:00 Test Item Value Reference Range Interpretation Comments RBC (test code = RBC) 3.44 4.20-5.40 [facility] HospitalYgzawueECNMGOYPBE2102-96-65 08:03:00 Test Item Value Reference Range Interpretation Comments Hgb (test code = Hgb) 8.3 12.0-16.0 [place] 325412-07-25 08:03:00 Test Item Value Reference Range Interpretation Comments Hct (test code = Hct) 26.2 36.0-48.0 [place] [address]-07-25 08:03:00 Test Item Value Reference Range Interpretation Comments MCV (test code = MCV) 76.1 80.0-98.0 [place] 325412-07-25 08:03:00 Test Item Value Reference Range Interpretation Comments MCH (test code = MCH) 24.0 pg 27.0-31.0 [place] 325412-07-25 08:03:00 Test Item Value Reference Range Interpretation Comments MCHC (test code = MCHC) 31.6 32.0-36.0 [place] 325412-07-25 08:03:00 Test Item Value Reference Range Interpretation Comments RDW (test code = RDW) 20.9 11.5-14.5 [place] 325412-07-25 08:03:00 Test Item Value Reference Range Interpretation Comments Platelet (test code = Platelet) 289 133-450 [facility] CampusMwxuflwRUFKWHHZVL9002-64-51 08:03:00 Test Item Value Reference Range Interpretation Comments MPV (test code = MPV) 7.5 7.4-10.4 [place] 325412-07-25 08:03:00 Test Item Value Reference Range Interpretation Comments Segs (test code = Segs) 94.0 45.0-75.0 [facility] CampusQflwkbqQXXEHQLDSA6881-82-90 08:03:00 Test Item Value Reference Range Interpretation Comments Lymphocytes (test code = Lymphocytes) 4.3 20.0-40.0 [place] 325412-07-25 08:03:00 Test Item Value Reference Range Interpretation Comments Monocytes (test code = Monocytes) 1.6 2.0-12.0 [place] [address]-07-25 08:03:00 Test Item Value Reference Range Interpretation Comments Basophils (test code = 0.1 See_Comment [Aut omated message] The Basophils) system which ge nerated this result tra nsmitted reference range : <=1.0. The reference r hugo was not used to int erpret this result as normal/abnormal . [facility] CampusKjxfxsnVZOCWLJWTD8899-30-04 08:03:00 Test Item Value Reference Range Interpretation Comments Neutrophils # (test code = Neutrophils 7.0 1.5-8.1 #) [place] 325412-07-25 08:03:00 Test Item Value Reference Range Interpretation Comments Lymphocytes # (test code = Lymphocytes 0.3 1.0-5.5 #) [facility] CenterHydzbfdQRIIZJDFVZ7927-22-96 08:03:00 Test Item Value Reference Range Interpretation Comments Monocytes # (test code 0.1 See_Comment [Aut omated message] The = Monocytes #) system which generated this result tra nsmitted reference range : <=0.8. The reference r hugo was not used to int erpret this result as normal/abnormal . [facility] CenterRjmsqzsENJOCBFDKH9159-91-43 08:03:00 Test Item Value Reference Range Interpretation Comments Microcyte (test code = 1+ *ABN*(06/13/22 Microcyte) 3:03 AM) [facility] [id number] 08:03:00 Test Item Value Reference Range Interpretation Comments HS Troponin I 1 Hr (test code = HS 50 Troponin I 1 Hr) [facility] [id number] 08:03:00 Test Item Value Reference Range Interpretation Comments HS Troponin I 0 to 1 See Note 5(06/13/22 Hour Delta (test code = 3:03 AM) HS Troponin I 0 to 1 Hour Delta) [facility] [id number] 08:03:00 Test Item Value Reference Range Interpretation Comments Glucose Lvl (test code = Glucose Lvl) 142 70-99 [facility] [employer] [id number] 08:03:00 Test Item Value Reference Range Interpretation Comments BUN (test code = BUN) 21 - [facility] [id number] 08:03:00 Test Item Value Reference Range Interpretation Comments Creatinine Lvl (test code = Creatinine 0.84 0.50-1.40 Lvl) [facility] [employer]2022-07-25 08:03:00 Test Item Value Reference Range Interpretation Comments Sodium Lvl (test code = Sodium Lvl) 133 135-145 [facility] [employer]2022-07-25 08:03:00 Test Item Value Reference Range Interpretation Comments Potassium Lvl (test code = Potassium 4.4 3.5-5.1 Lvl) [facility] [id number] 08:03:00 Test Item Value Reference Range Interpretation Comments Chloride Lvl (test code = Chloride Lvl) 98 95-109 [facility] [employer] [id number] 08:03:00 Test Item Value Reference Range Interpretation Comments CO2 (test code = CO2) 25 24-32 [facility]IRIS.[place] [id number] 08:03:00 Test Item Value Reference Range Interpretation Comments AGAP (test code = AGAP) 14.4 10.0-20.0 [place] 480482-07-25 08:03:00 Test Item Value Reference Range Interpretation Comments Calcium Lvl (test code = Calcium Lvl) 9.1 8.5-10.5 [place] 480482-07-25 08:03:00 Test Item Value Reference Range Interpretation Comments B/C Ratio (test code = B/C Ratio) 25 1 6-25 [facility]IR[facility] [id number] 08:03:00 Test Item Value Reference Range Interpretation Comments Total Protein (test code = Total 6.7 6.4-8.4 Protein) [place] 480482-07-25 08:03:00 Test Item Value Reference Range Interpretation Comments Albumin Lvl (test code = Albumin Lvl) 3.2 3.5-5.0 [place] 480482-07-25 08:03:00 Test Item Value Reference Range Interpretation Comments Globulin (test code = Globulin) 3.5 2.7-4.2 [facility] [id number] 08:03:00 Test Item Value Reference Range Interpretation Comments A/G Ratio (test code = A/G Ratio) 0.9 1 0.7-1.6 [place] 480482-07-25 08:03:00 Test Item Value Reference Range Interpretation Comments ALT (test code = ALT) 19 See_Comment [Auto mated message] The system which ge nerated this result transmit lavon reference range : <=65. The reference range was not used to interpr et this result as dionne l/abnormal. [facility] [id number] 08:03:00 Test Item Value Reference Range Interpretation Comments AST (test code = AST) 26 See_Comment [Auto mated message] The system which ge nerated this result transmit lavon reference range : <=37. The reference range was not used to interpr et this result as dionne l/abnormal. [facility] [id number] 08:03:00 Test Item Value Reference Range Interpretation Comments Alk Phos (test code = Alk Phos) 56 39-136 [facility]2022-07-25 08:03:00 Test Item Value Reference Range Interpretation Comments Bili Total (test code = Bili Total) 1.0 0.2-1.3 [facility]2022-07-25 08:03:00 Test Item Value Reference Range Interpretation Comments eGFR (test code = eGFR) 67 [place] 480482-07-25 08:03:00 Test Item Value Reference Range Interpretation Comments Magnesium Lvl (test code = Magnesium 1.9 1.8-2.4 Lvl) [place] 480482-07-25 08:03:00 Test Item Value Reference Range Interpretation Comments Procalcitonin Lvl (test no gt See_Comment [Au tomated message] code = Procalcitonin Lvl) e system which generated this result transmitted ref erence range: <=0.10. The reference range was not used to interpr et this result as normal/abnormal . [facility]2022-07-25 08:03:00 Test Item Value Reference Range Interpretation Comments LDH (test code = LDH) 354 98-192 [place] 325412-07-25 08:03:00 Test Item Value Reference Range Interpretation Comments WBC (test code = WBC) 7.5 3.7-10.4 [place] 325412-07-25 08:03:00 Test Item Value Reference Range Interpretation Comments RBC (test code = RBC) 3.44 4.20-5.40 [place] 325412-07-25 08:03:00 Test Item Value Reference Range Interpretation Comments Hgb (test code = Hgb) 8.3 12.0-16.0 [place] [address]-07-25 08:03:00 Test Item Value Reference Range Interpretation Comments Hct (test code = Hct) 26.2 36.0-48.0 [place] 325412-07-25 08:03:00 Test Item Value Reference Range Interpretation Comments MCV (test code = MCV) 76.1 80.0-98.0 [place] [address]-07-25 08:03:00 Test Item Value Reference Range Interpretation Comments MCH (test code = MCH) 24.0 pg 27.0-31.0 [place] 325412-07-25 08:03:00 Test Item Value Reference Range Interpretation Comments MCHC (test code = MCHC) 31.6 32.0-36.0 [place] [address]-07-25 08:03:00 Test Item Value Reference Range Interpretation Comments RDW (test code = RDW) 20.9 11.5-14.5 [place] 325412-07-25 08:03:00 Test Item Value Reference Range Interpretation Comments Platelet (test code = Platelet) 289 133-450 [place] 325412-07-25 08:03:00 Test Item Value Reference Range Interpretation Comments MPV (test code = MPV) 7.5 7.4-10.4 [place] [address]-07-25 08:03:00 Test Item Value Reference Range Interpretation Comments Segs (test code = Segs) 94.0 45.0-75.0 [place] [address]-07-25 08:03:00 Test Item Value Reference Range Interpretation Comments Lymphocytes (test code = Lymphocytes) 4.3 20.0-40.0 [place] 325412-07-25 08:03:00 Test Item Value Reference Range Interpretation Comments Monocytes (test code = Monocytes) 1.6 2.0-12.0 [place] [address]-07-25 08:03:00 Test Item Value Reference Range Interpretation Comments Basophils (test code = 0.1 See_Comment [Aut omated message] The Basophils) system which ge nerated this result tra nsmitted reference range : <=1.0. The reference r hugo was not used to int erpret this result as normal/abnormal . [place] 325412-07-25 08:03:00 Test Item Value Reference Range Interpretation Comments Neutrophils # (test code = Neutrophils 7.0 1.5-8.1 #) [place] [address]-07-25 08:03:00 Test Item Value Reference Range Interpretation Comments Lymphocytes # (test code = Lymphocytes 0.3 1.0-5.5 #) [place] [address]-07-25 08:03:00 Test Item Value Reference Range Interpretation Comments Monocytes # (test code 0.1 See_Comment [Aut omated message] The = Monocytes #) system which generated this result tra nsmitted reference range : <=0.8. The reference r hugo was not used to int erpret this result as normal/abnormal . [facility]DacorfbBCZCKQSXLW2059-20-45 08:03:00 Test Item Value Reference Range Interpretation Comments Microcyte (test code = 1+ *ABN*(06/13/22 Microcyte) 3:03 AM) [facility] [id number] 08:03:00 Test Item Value Reference Range Interpretation Comments HS Troponin I 1 Hr (test code = HS 50 Troponin I 1 Hr) [facility] [id number] 08:03:00 Test Item Value Reference Range Interpretation Comments HS Troponin I 0 to 1 See Note 5(06/13/22 Hour Delta (test code = 3:03 AM) HS Troponin I 0 to 1 Hour Delta) [facility]2022-07-25 08:03:00 Test Item Value Reference Range Interpretation Comments Glucose Lvl (test code = Glucose Lvl) 142 70-99 [facility]2022-07-25 08:03:00 Test Item Value Reference Range Interpretation Comments BUN (test code = BUN) 21 06-10 [facility]2022-07-25 08:03:00 Test Item Value Reference Range Interpretation Comments Creatinine Lvl (test code = Creatinine 0.84 0.50-1.40 Lvl) [facility]2022-07-25 08:03:00 Test Item Value Reference Range Interpretation Comments Sodium Lvl (test code = Sodium Lvl) 133 135-145 [facility]2022-07-25 08:03:00 Test Item Value Reference Range Interpretation Comments Potassium Lvl (test code = Potassium 4.4 3.5-5.1 Lvl) [facility]2022-07-25 08:03:00 Test Item Value Reference Range Interpretation Comments Chloride Lvl (test code = Chloride Lvl) 98 95-109 [facility]2022-07-25 08:03:00 Test Item Value Reference Range Interpretation Comments CO2 (test code = CO2) -32 [facility]2022-07-25 08:03:00 Test Item Value Reference Range Interpretation Comments AGAP (test code = AGAP) 14.4 10.0-20.0 [facility]2022-07-25 08:03:00 Test Item Value Reference Range Interpretation Comments Calcium Lvl (test code = Calcium Lvl) 9.1 8.5-10.5 [facility] [id number] 08:03:00 Test Item Value Reference Range Interpretation Comments B/C Ratio (test code = B/C Ratio) 25 1 6-25 [place] 480482-07-25 08:03:00 Test Item Value Reference Range Interpretation Comments Total Protein (test code = Total 6.7 6.4-8.4 Protein) [place] 480482-07-25 08:03:00 Test Item Value Reference Range Interpretation Comments Albumin Lvl (test code = Albumin Lvl) 3.2 3.5-5.0 [facility] [id number] 08:03:00 Test Item Value Reference Range Interpretation Comments Globulin (test code = Globulin) 3.5 2.7-4.2 [facility] [id number] 08:03:00 Test Item Value Reference Range Interpretation Comments A/G Ratio (test code = A/G Ratio) 0.9 1 0.7-1.6 [facility] [id number] 08:03:00 Test Item Value Reference Range Interpretation Comments ALT (test code = ALT) 19 See_Comment [Auto mated message] The system which ge nerated this result transmit lavon reference range : <=65. The reference range was not used to interpr et this result as dionne l/abnormal. [facility] [id number] 08:03:00 Test Item Value Reference Range Interpretation Comments AST (test code = AST) 26 See_Comment [Auto mated message] The system which ge nerated this result transmit lavon reference range : <=37. The reference range was not used to interpr et this result as dionne l/abnormal. [facility] [id number] 08:03:00 Test Item Value Reference Range Interpretation Comments Alk Phos (test code = Alk Phos) 56 39-136 [facility] [id number] 08:03:00 Test Item Value Reference Range Interpretation Comments Bili Total (test code = Bili Total) 1.0 0.2-1.3 [facility] [id number] 08:03:00 Test Item Value Reference Range Interpretation Comments eGFR (test code = eGFR) 67 [facility]2022-07-25 08:03:00 Test Item Value Reference Range Interpretation Comments Magnesium Lvl (test code = Magnesium 1.9 1.8-2.4 Lvl) [facility]2022-07-25 08:03:00 Test Item Value Reference Range Interpretation Comments Procalcitonin Lvl (test no gt See_Comment [Au tomated message] code = Procalcitonin Lvl) Th e system which generated this result transmitted ref erence range: <=0.10. The reference range was not used to interpr et this result as normal/abnormal . [facility]2022-07-25 08:03:00 Test Item Value Reference Range Interpretation Comments LDH (test code = LDH) 354 98-192 [facility] CampusEvrlkdaPRPCRXITSW3370-66-33 08:03:00 Test Item Value Reference Range Interpretation Comments WBC (test code = WBC) 7.5 3.7-10.4 [facility] CampusEwnekzvOPFVEKZEPC1879-22-30 08:03:00 Test Item Value Reference Range Interpretation Comments RBC (test code = RBC) 3.44 4.20-5.40 [facility] CampusOhlwjmyFFNERTADYO3707-77-50 08:03:00 Test Item Value Reference Range Interpretation Comments Hgb (test code = Hgb) 8.3 12.0-16.0 [facility] CampusSdrgbltXCRKBNHBMG9653-67-47 08:03:00 Test Item Value Reference Range Interpretation Comments Hct (test code = Hct) 26.2 36.0-48.0 [facility] CampusHryzlalCRDSQQGKTM3950-15-88 08:03:00 Test Item Value Reference Range Interpretation Comments MCV (test code = MCV) 76.1 80.0-98.0 [facility] CampusClevbuaLHZMHSQTBA7724-33-49 08:03:00 Test Item Value Reference Range Interpretation Comments MCH (test code = MCH) 24.0 pg 27.0-31.0 [facility] CampusEzprkhpKDQMGMKQJN6487-56-63 08:03:00 Test Item Value Reference Range Interpretation Comments MCHC (test code = MCHC) 31.6 32.0-36.0 [facility] CampusKulupkiKQZVNHQHJG7188-58-92 08:03:00 Test Item Value Reference Range Interpretation Comments RDW (test code = RDW) 20.9 11.5-14.5 [place] 325412-07-25 08:03:00 Test Item Value Reference Range Interpretation Comments Platelet (test code = Platelet) 289 133-450 [facility] CampusZdyrvnrEGFNAHGABJ2117-59-02 08:03:00 Test Item Value Reference Range Interpretation Comments MPV (test code = MPV) 7.5 7.4-10.4 [facility] CampusJoxbvpoKAOLWQZMLB9921-98-53 08:03:00 Test Item Value Reference Range Interpretation Comments Segs (test code = Segs) 94.0 45.0-75.0 [facility] CampusFyafqfgPGSJMBGQWA8411-87-46 08:03:00 Test Item Value Reference Range Interpretation Comments Lymphocytes (test code = Lymphocytes) 4.3 20.0-40.0 [facility] CampusLcghlknRQVTVTSHGM3756-63-12 08:03:00 Test Item Value Reference Range Interpretation Comments Monocytes (test code = Monocytes) 1.6 2.0-12.0 [facility] CampusNchsaifWXUWFNGZIW8230-65-18 08:03:00 Test Item Value Reference Range Interpretation Comments Basophils (test code = 0.1 See_Comment [Aut omated message] The Basophils) system which ge nerated this result tra nsmitted reference range : <=1.0. The reference r hugo was not used to int erpret this result as normal/abnormal . [facility] CampusRcnvefkTYQUXPESSB8101-02-18 08:03:00 Test Item Value Reference Range Interpretation Comments Neutrophils # (test code = Neutrophils 7.0 1.5-8.1 #) [facility] CampusKwcwzjoTBZDYIBMWP8067-67-37 08:03:00 Test Item Value Reference Range Interpretation Comments Lymphocytes # (test code = Lymphocytes 0.3 1.0-5.5 #) [facility] CampusEdhxddxHSHQVXZBGU7060-93-84 08:03:00 Test Item Value Reference Range Interpretation Comments Monocytes # (test code 0.1 See_Comment [Aut omated message] The = Monocytes #) system which generated this result tra nsmitted reference range : <=0.8. The reference r hugo was not used to int erpret this result as normal/abnormal . [facility] CampusLewpppoLXEOJRGUBH6712-77-06 08:03:00 Test Item Value Reference Range Interpretation Comments Microcyte (test code = 1+ *ABN*(06/13/22 Microcyte) 3:03 AM) [facility]2022-07-25 08:03:00 Test Item Value Reference Range Interpretation Comments HS Troponin I 1 Hr (test code = HS 50 Troponin I 1 Hr) [facility] HospitalCARDIAC [id number] 08:03:00 Test Item Value Reference Range Interpretation Comments HS Troponin I 0 to 1 See Note 5(06/13/22 Hour Delta (test code = 3:03 AM) HS Troponin I 0 to 1 Hour Delta) [facility] [id number] 08:03:00 Test Item Value Reference Range Interpretation Comments Glucose Lvl (test code = Glucose Lvl) 142 70-99 [facility] [id number] 08:03:00 Test Item Value Reference Range Interpretation Comments BUN (test code = BUN) 21 - [facility]2022-07-25 08:03:00 Test Item Value Reference Range Interpretation Comments Creatinine Lvl (test code = Creatinine 0.84 0.50-1.40 Lvl) [facility] [id number] 08:03:00 Test Item Value Reference Range Interpretation Comments Sodium Lvl (test code = Sodium Lvl) 133 135-145 [facility] [id number] 08:03:00 Test Item Value Reference Range Interpretation Comments Potassium Lvl (test code = Potassium 4.4 3.5-5.1 Lvl) [facility] [id number] 08:03:00 Test Item Value Reference Range Interpretation Comments Chloride Lvl (test code = Chloride Lvl) 98 95-109 [facility] [id number] 08:03:00 Test Item Value Reference Range Interpretation Comments CO2 (test code = CO2) 25 24-32 [facility] [id number] 08:03:00 Test Item Value Reference Range Interpretation Comments AGAP (test code = AGAP) 14.4 10.0-20.0 [facility]2022-07-25 08:03:00 Test Item Value Reference Range Interpretation Comments Calcium Lvl (test code = Calcium Lvl) 9.1 8.5-10.5 [facility] [id number] 08:03:00 Test Item Value Reference Range Interpretation Comments B/C Ratio (test code = B/C Ratio) 25 1 6-25 [facility] [id number] 08:03:00 Test Item Value Reference Range Interpretation Comments Total Protein (test code = Total 6.7 6.4-8.4 Protein) [place] 480482-07-25 08:03:00 Test Item Value Reference Range Interpretation Comments Albumin Lvl (test code = Albumin Lvl) 3.2 3.5-5.0 [place] 480482-07-25 08:03:00 Test Item Value Reference Range Interpretation Comments Globulin (test code = Globulin) 3.5 2.7-4.2 [place] 480482-07-25 08:03:00 Test Item Value Reference Range Interpretation Comments A/G Ratio (test code = A/G Ratio) 0.9 1 0.7-1.6 [place] [address]-07-25 08:03:00 Test Item Value Reference Range Interpretation Comments ALT (test code = ALT) 19 See_Comment [Auto mated message] The system which ge nerated this result transmit lavon reference range : <=65. The reference range was not used to interpr et this result as dionne l/abnormal. [facility] [id number] 08:03:00 Test Item Value Reference Range Interpretation Comments AST (test code = AST) 26 See_Comment [Auto mated message] The system which ge nerated this result transmit lavon reference range : <=37. The reference range was not used to interpr et this result as dionne l/abnormal. [place] 480482-07-25 08:03:00 Test Item Value Reference Range Interpretation Comments Alk Phos (test code = Alk Phos) 56 39-136 [place] 480482-07-25 08:03:00 Test Item Value Reference Range Interpretation Comments Bili Total (test code = Bili Total) 1.0 0.2-1.3 [place] [address]-07-25 08:03:00 Test Item Value Reference Range Interpretation Comments eGFR (test code = eGFR) 67 [place] [address]-07-25 08:03:00 Test Item Value Reference Range Interpretation Comments Magnesium Lvl (test code = Magnesium 1.9 1.8-2.4 Lvl) [place] [address]-07-25 08:03:00 Test Item Value Reference Range Interpretation Comments Procalcitonin Lvl (test no gt See_Comment [Au tomated message] code = Procalcitonin Lvl) Th e system which generated this result transmitted ref erence range: <=0.10. The reference range was not used to interpr et this result as normal/abnormal . [facility]2022-07-25 08:03:00 Test Item Value Reference Range Interpretation Comments LDH (test code = LDH) 354 98-192 [facility] CampusBztaedhYCLLNJLBRS9690-21-61 08:03:00 Test Item Value Reference Range Interpretation Comments WBC (test code = WBC) 7.5 3.7-10.4 [facility] CampusOxzvyiyKJGHJCLNTL5221-90-26 08:03:00 Test Item Value Reference Range Interpretation Comments RBC (test code = RBC) 3.44 4.20-5.40 [facility] CampusCqouwmxYRCAXFHCTT8021-63-69 08:03:00 Test Item Value Reference Range Interpretation Comments Hgb (test code = Hgb) 8.3 12.0-16.0 [facility] CampusEbpizknMKVKZJAIWL7843-54-93 08:03:00 Test Item Value Reference Range Interpretation Comments Hct (test code = Hct) 26.2 36.0-48.0 [facility] CampusUqixeszPKNCQDPSRQ0001-77-47 08:03:00 Test Item Value Reference Range Interpretation Comments MCV (test code = MCV) 76.1 80.0-98.0 [facility] CampusRetqsxjKERBOBIGER0374-22-34 08:03:00 Test Item Value Reference Range Interpretation Comments MCH (test code = MCH) 24.0 pg 27.0-31.0 [facility] CampusCkrfwkxFRCXLJRLOD0209-64-95 08:03:00 Test Item Value Reference Range Interpretation Comments MCHC (test code = MCHC) 31.6 32.0-36.0 [facility] CampusIfakploPQPTOOINDE3542-74-81 08:03:00 Test Item Value Reference Range Interpretation Comments RDW (test code = RDW) 20.9 11.5-14.5 [facility] CampusEcufpqgSWARGZZILT9029-84-76 08:03:00 Test Item Value Reference Range Interpretation Comments Platelet (test code = Platelet) 289 133-450 [facility] CampusGdgzeyzQDSVWUNIEI9522-31-84 08:03:00 Test Item Value Reference Range Interpretation Comments MPV (test code = MPV) 7.5 7.4-10.4 [facility] CampusYmaseonBSVHTTJNTP2223-79-33 08:03:00 Test Item Value Reference Range Interpretation Comments Segs (test code = Segs) 94.0 45.0-75.0 [facility] CampusMifylbuMTDKRRBJEO4927-12-82 08:03:00 Test Item Value Reference Range Interpretation Comments Lymphocytes (test code = Lymphocytes) 4.3 20.0-40.0 [facility] CampusFsvcjirRNFNDREWZC5382-87-60 08:03:00 Test Item Value Reference Range Interpretation Comments Monocytes (test code = Monocytes) 1.6 2.0-12.0 [facility] CampusYadkqbwMOLWPXIIYK4136-75-35 08:03:00 Test Item Value Reference Range Interpretation Comments Basophils (test code = 0.1 See_Comment [Aut omated message] The Basophils) system which ge nerated this result tra nsmitted reference range : <=1.0. The reference r hugo was not used to int erpret this result as normal/abnormal . [facility] CampusPmrxzbuUMMQDUROJP4896-45-53 08:03:00 Test Item Value Reference Range Interpretation Comments Neutrophils # (test code = Neutrophils 7.0 1.5-8.1 #) [facility] CampusVezzptaLEFUGGVWRX9450-71-02 08:03:00 Test Item Value Reference Range Interpretation Comments Lymphocytes # (test code = Lymphocytes 0.3 1.0-5.5 #) [facility] CampusNsvtzevKBZRQMUMGG5816-08-27 08:03:00 Test Item Value Reference Range Interpretation Comments Monocytes # (test code 0.1 See_Comment [Aut omated message] The = Monocytes #) system which generated this result tra nsmitted reference range : <=0.8. The reference r hugo was not used to int erpret this result as normal/abnormal . [facility] CampusVtvwqxeNXGKWPCGNF0114-17-50 08:03:00 Test Item Value Reference Range Interpretation Comments Microcyte (test code = 1+ *ABN*(06/13/22 Microcyte) 3:03 AM) [facility] [id number] 08:03:00 Test Item Value Reference Range Interpretation Comments HS Troponin I 1 Hr (test code = HS 50 Troponin I 1 Hr) [facility] [id number] 08:03:00 Test Item Value Reference Range Interpretation Comments HS Troponin I 0 to 1 See Note 5(06/13/22 Hour Delta (test code = 3:03 AM) HS Troponin I 0 to 1 Hour Delta) [facility]2022-07-25 08:03:00 Test Item Value Reference Range Interpretation Comments Glucose Lvl (test code = Glucose Lvl) 142 70-99 [place] 480482-07-25 08:03:00 Test Item Value Reference Range Interpretation Comments BUN (test code = BUN) 21 7-22 [place] 480482-07-25 08:03:00 Test Item Value Reference Range Interpretation Comments Creatinine Lvl (test code = Creatinine 0.84 0.50-1.40 Lvl) [place] 480482-07-25 08:03:00 Test Item Value Reference Range Interpretation Comments Sodium Lvl (test code = Sodium Lvl) 133 135-145 [place] 480482-07-25 08:03:00 Test Item Value Reference Range Interpretation Comments Potassium Lvl (test code = Potassium 4.4 3.5-5.1 Lvl) [place] 480482-07-25 08:03:00 Test Item Value Reference Range Interpretation Comments Chloride Lvl (test code = Chloride Lvl) 98 95-109 [place] 480482-07-25 08:03:00 Test Item Value Reference Range Interpretation Comments CO2 (test code = CO2) 25 24-32 [place] 480482-07-25 08:03:00 Test Item Value Reference Range Interpretation Comments AGAP (test code = AGAP) 14.4 10.0-20.0 [place] 480482-07-25 08:03:00 Test Item Value Reference Range Interpretation Comments Calcium Lvl (test code = Calcium Lvl) 9.1 8.5-10.5 [facility]2022-07-25 08:03:00 Test Item Value Reference Range Interpretation Comments B/C Ratio (test code = B/C Ratio) 25 1 6-25 [place] 480482-07-25 08:03:00 Test Item Value Reference Range Interpretation Comments Total Protein (test code = Total 6.7 6.4-8.4 Protein) [place] 480482-07-25 08:03:00 Test Item Value Reference Range Interpretation Comments Albumin Lvl (test code = Albumin Lvl) 3.2 3.5-5.0 [place] 480482-07-25 08:03:00 Test Item Value Reference Range Interpretation Comments Globulin (test code = Globulin) 3.5 2.7-4.2 [facility] [employer] [id number] 08:03:00 Test Item Value Reference Range Interpretation Comments A/G Ratio (test code = A/G Ratio) 0.9 1 0.7-1.6 [facility] [id number] 08:03:00 Test Item Value Reference Range Interpretation Comments ALT (test code = ALT) 19 See_Comment [Auto mated message] The system which ge nerated this result transmit lavon reference range : <=65. The reference range was not used to interpr et this result as dionne l/abnormal. [facility] [employer] [id number] 08:03:00 Test Item Value Reference Range Interpretation Comments AST (test code = AST) 26 See_Comment [Auto mated message] The system which ge nerated this result transmit lavon reference range : <=37. The reference range was not used to interpr et this result as dionne l/abnormal. [facility] [employer] [id number] 08:03:00 Test Item Value Reference Range Interpretation Comments Alk Phos (test code = Alk Phos) 56 39-136 [facility] [employer] [id number] 08:03:00 Test Item Value Reference Range Interpretation Comments Bili Total (test code = Bili Total) 1.0 0.2-1.3 [facility] [employer] [id number] 08:03:00 Test Item Value Reference Range Interpretation Comments eGFR (test code = eGFR) 67 [facility] [employer] [id number] 08:03:00 Test Item Value Reference Range Interpretation Comments Magnesium Lvl (test code = Magnesium 1.9 1.8-2.4 Lvl) [facility] [id number] 08:03:00 Test Item Value Reference Range Interpretation Comments Procalcitonin Lvl (test no gt See_Comment [Au tomated message] code = Procalcitonin Lvl) Th e system which generated this result transmitted ref erence range: <=0.10. The reference range was not used to interpr et this result as normal/abnormal . [facility] [employer] [id number] 08:03:00 Test Item Value Reference Range Interpretation Comments LDH (test code = LDH) 354 98-192 [facility] CampusSkvymxdYPOVKKICXS3900-71-64 08:03:00 Test Item Value Reference Range Interpretation Comments WBC (test code = WBC) 7.5 3.7-10.4 [facility] CampusIuqumzqOAWYJVTPIU7648-20-23 08:03:00 Test Item Value Reference Range Interpretation Comments RBC (test code = RBC) 3.44 4.20-5.40 [facility] CampusKsfetxjLKWCNPAKAX6603-20-68 08:03:00 Test Item Value Reference Range Interpretation Comments Hgb (test code = Hgb) 8.3 12.0-16.0 [facility] CampusTiwosqgLPHEAVANWQ7059-40-71 08:03:00 Test Item Value Reference Range Interpretation Comments Hct (test code = Hct) 26.2 36.0-48.0 [facility] CampusAokttmqLOWZEBSKUI5361-57-17 08:03:00 Test Item Value Reference Range Interpretation Comments MCV (test code = MCV) 76.1 80.0-98.0 [facility] CampusRetkpdtKSKSJRGGTQ6613-09-05 08:03:00 Test Item Value Reference Range Interpretation Comments MCH (test code = MCH) 24.0 pg 27.0-31.0 [facility] CampusYaguvxlGAQURNSAYY3872-43-32 08:03:00 Test Item Value Reference Range Interpretation Comments MCHC (test code = MCHC) 31.6 32.0-36.0 [facility] CampusJfzbmbhTPOPAOLZJJ1615-71-88 08:03:00 Test Item Value Reference Range Interpretation Comments RDW (test code = RDW) 20.9 11.5-14.5 [facility] CampusUravdupBIZSDYXJGA1176-29-48 08:03:00 Test Item Value Reference Range Interpretation Comments Platelet (test code = Platelet) 289 133-450 [facility] CampusWpafdxeWISBBKVGAN6607-71-21 08:03:00 Test Item Value Reference Range Interpretation Comments MPV (test code = MPV) 7.5 7.4-10.4 [facility] CampusFplbmbhNQGFRHGLQM0222-16-19 08:03:00 Test Item Value Reference Range Interpretation Comments Segs (test code = Segs) 94.0 45.0-75.0 [facility] CampusOatvxqcFBHRBWOHWC4888-83-45 08:03:00 Test Item Value Reference Range Interpretation Comments Lymphocytes (test code = Lymphocytes) 4.3 20.0-40.0 [facility] CampusQfevxbaAOUMLEQDXB2311-89-40 08:03:00 Test Item Value Reference Range Interpretation Comments Monocytes (test code = Monocytes) 1.6 2.0-12.0 [facility]MaaeeqsCFNEDHFZVF7635-79-55 08:03:00 Test Item Value Reference Range Interpretation Comments Basophils (test code = 0.1 See_Comment [Aut omated message] The Basophils) system which ge nerated this result tra nsmitted reference range : <=1.0. The reference r hugo was not used to int erpret this result as normal/abnormal . [facility] CenterDibwjdnXFAGNVXJMX2916-88-40 08:03:00 Test Item Value Reference Range Interpretation Comments Neutrophils # (test code = Neutrophils 7.0 1.5-8.1 #) [facility] HospitalHgkambdMNEPRFRKEB7766-57-79 08:03:00 Test Item Value Reference Range Interpretation Comments Lymphocytes # (test code = Lymphocytes 0.3 1.0-5.5 #) [facility] HospitalNmuuwdaLHGGMEXSXZ8976-28-56 08:03:00 Test Item Value Reference Range Interpretation Comments Monocytes # (test code 0.1 See_Comment [Aut omated message] The = Monocytes #) system which generated this result tra nsmitted reference range : <=0.8. The reference r hugo was not used to int erpret this result as normal/abnormal . [facility] HospitalZeqrhprFFZQSPCJLD7794-46-56 08:03:00 Test Item Value Reference Range Interpretation Comments Microcyte (test code = 1+ *ABN*(06/13/22 Microcyte) 3:03 AM) [facility] Test Item Value Reference Range Interpretation Comments HS Troponin I 1 Hr (test code = HS 50 Troponin I 1 Hr) [facility] 08:03:00 Test Item Value Reference Range Interpretation Comments HS Troponin I 0 to 1 See Note 5(06/13/22 Hour Delta (test code = 3:03 AM) HS Troponin I 0 to 1 Hour Delta) [facility] [employer]2022-07-25 08:03:00 Test Item Value Reference Range Interpretation Comments Glucose Lvl (test code = Glucose Lvl) 142 70-99 [facility] [employer]2022-07-25 08:03:00 Test Item Value Reference Range Interpretation Comments BUN (test code = BUN) 21 06-10 [place] 480482-07-25 08:03:00 Test Item Value Reference Range Interpretation Comments Creatinine Lvl (test code = Creatinine 0.84 0.50-1.40 Lvl) [place] 480482-07-25 08:03:00 Test Item Value Reference Range Interpretation Comments Sodium Lvl (test code = Sodium Lvl) 133 135-145 [place] 480482-07-25 08:03:00 Test Item Value Reference Range Interpretation Comments Potassium Lvl (test code = Potassium 4.4 3.5-5.1 Lvl) [facility]2022-07-25 08:03:00 Test Item Value Reference Range Interpretation Comments Chloride Lvl (test code = Chloride Lvl) 98 95-109 [place] 480482-07-25 08:03:00 Test Item Value Reference Range Interpretation Comments CO2 (test code = CO2) 25 24-32 [place] 480482-07-25 08:03:00 Test Item Value Reference Range Interpretation Comments AGAP (test code = AGAP) 14.4 10.0-20.0 [place] 480482-07-25 08:03:00 Test Item Value Reference Range Interpretation Comments Calcium Lvl (test code = Calcium Lvl) 9.1 8.5-10.5 [place] 480482-07-25 08:03:00 Test Item Value Reference Range Interpretation Comments B/C Ratio (test code = B/C Ratio) 25 1 6-25 [place] 480482-07-25 08:03:00 Test Item Value Reference Range Interpretation Comments Total Protein (test code = Total 6.7 6.4-8.4 Protein) [facility]2022-07-25 08:03:00 Test Item Value Reference Range Interpretation Comments Albumin Lvl (test code = Albumin Lvl) 3.2 3.5-5.0 [place] 480482-07-25 08:03:00 Test Item Value Reference Range Interpretation Comments Globulin (test code = Globulin) 3.5 2.7-4.2 [place] 480482-07-25 08:03:00 Test Item Value Reference Range Interpretation Comments A/G Ratio (test code = A/G Ratio) 0.9 1 0.7-1.6 [place] 480482-07-25 08:03:00 Test Item Value Reference Range Interpretation Comments ALT (test code = ALT) 19 See_Comment [Auto mated message] The system which ge nerated this result transmit lavon reference range : <=65. The reference range was not used to interpr et this result as dionne l/abnormal. [facility] [employer] [id number] 08:03:00 Test Item Value Reference Range Interpretation Comments AST (test code = AST) 26 See_Comment [Auto mated message] The system which ge nerated this result transmit lavon reference range : <=37. The reference range was not used to interpr et this result as dionne l/abnormal. [facility] [employer] [id number] 08:03:00 Test Item Value Reference Range Interpretation Comments Alk Phos (test code = Alk Phos) 56 39-136 [facility] [id number] 08:03:00 Test Item Value Reference Range Interpretation Comments Bili Total (test code = Bili Total) 1.0 0.2-1.3 [facility] [employer] [id number] 08:03:00 Test Item Value Reference Range Interpretation Comments eGFR (test code = eGFR) 67 [facility] [employer] [id number] 08:03:00 Test Item Value Reference Range Interpretation Comments Magnesium Lvl (test code = Magnesium 1.9 1.8-2.4 Lvl) [facility] [id number] 08:03:00 Test Item Value Reference Range Interpretation Comments Procalcitonin Lvl (test no gt See_Comment [Au tomated message] code = Procalcitonin Lvl) Th e system which generated this result transmitted ref erence range: <=0.10. The reference range was not used to interpr et this result as normal/abnormal . [facility] [employer] [id number] 08:03:00 Test Item Value Reference Range Interpretation Comments LDH (test code = LDH) 354 98-192 [facility] HospitalShdrriyDHXDVNMYMO1576-84-51 08:03:00 Test Item Value Reference Range Interpretation Comments WBC (test code = WBC) 7.5 3.7-10.4 [facility] CenterLbkswdsIAUNKQOITG0800-81-41 08:03:00 Test Item Value Reference Range Interpretation Comments RBC (test code = RBC) 3.44 4.20-5.40 [place] 325412-07-25 08:03:00 Test Item Value Reference Range Interpretation Comments Hgb (test code = Hgb) 8.3 12.0-16.0 [place] 325412-07-25 08:03:00 Test Item Value Reference Range Interpretation Comments Hct (test code = Hct) 26.2 36.0-48.0 [facility] CampusZquhnnpZMGFAYUVXS3632-93-45 08:03:00 Test Item Value Reference Range Interpretation Comments MCV (test code = MCV) 76.1 80.0-98.0 [facility] CampusVbjnkclAHRHBJTYWV7231-96-14 08:03:00 Test Item Value Reference Range Interpretation Comments MCH (test code = MCH) 24.0 pg 27.0-31.0 [facility] CampusDlhwqdmRZBEDWVXXG2366-20-15 08:03:00 Test Item Value Reference Range Interpretation Comments MCHC (test code = MCHC) 31.6 32.0-36.0 [facility] CampusWwswaeqKBQUHJXHYE1598-17-91 08:03:00 Test Item Value Reference Range Interpretation Comments RDW (test code = RDW) 20.9 11.5-14.5 [facility] CampusUsudmvsSDBDVMQECF4061-95-28 08:03:00 Test Item Value Reference Range Interpretation Comments Platelet (test code = Platelet) 289 133-450 [facility] CampusUvehegmCWLSOLDVPE6567-48-08 08:03:00 Test Item Value Reference Range Interpretation Comments MPV (test code = MPV) 7.5 7.4-10.4 [facility] CampusAkkfsguCDFJPBMRFQ9225-72-59 08:03:00 Test Item Value Reference Range Interpretation Comments Segs (test code = Segs) 94.0 45.0-75.0 [facility] CampusGnsedveHXMXZLHDMD9813-43-41 08:03:00 Test Item Value Reference Range Interpretation Comments Lymphocytes (test code = Lymphocytes) 4.3 20.0-40.0 [place] 325412-07-25 08:03:00 Test Item Value Reference Range Interpretation Comments Monocytes (test code = Monocytes) 1.6 2.0-12.0 [place] 325412-07-25 08:03:00 Test Item Value Reference Range Interpretation Comments Basophils (test code = 0.1 See_Comment [Aut omated message] The Basophils) system which ge nerated this result tra nsmitted reference range : <=1.0. The reference r hugo was not used to int erpret this result as normal/abnormal . [facility] OkrjxfyTTSTDNXLNN5822-71-48 08:03:00 Test Item Value Reference Range Interpretation Comments Neutrophils # (test code = Neutrophils 7.0 1.5-8.1 #) [facility] CenterUobpunjCHDZXSWXJQ9675-71-05 08:03:00 Test Item Value Reference Range Interpretation Comments Lymphocytes # (test code = Lymphocytes 0.3 1.0-5.5 #) [facility] CenterJjulhxbNRWYWFBEPP5610-70-38 08:03:00 Test Item Value Reference Range Interpretation Comments Monocytes # (test code 0.1 See_Comment [Aut omated message] The = Monocytes #) system which generated this result tra nsmitted reference range : <=0.8. The reference r hugo was not used to int erpret this result as normal/abnormal . [facility] CenterCiwudxdAPMDHRCQEU6935-65-44 08:03:00 Test Item Value Reference Range Interpretation Comments Microcyte (test code = 1+ *ABN*(06/13/22 Microcyte) 3:03 AM) [facility]2022-07-25 08:03:00 Test Item Value Reference Range Interpretation Comments HS Troponin I 1 Hr (test code = HS 50 Troponin I 1 Hr) [facility]2022-07-25 08:03:00 Test Item Value Reference Range Interpretation Comments HS Troponin I 0 to 1 See Note 5(06/13/22 Hour Delta (test code = 3:03 AM) HS Troponin I 0 to 1 Hour Delta) [facility] [employer] [facility]2022-07-25 08:03:00 Test Item Value Reference Range Interpretation Comments Glucose Lvl (test code = Glucose Lvl) 142 70-99 [facility] [facility]2022-07-25 08:03:00 Test Item Value Reference Range Interpretation Comments BUN (test code = BUN) 21 - [facility] [facility]2022-07-25 08:03:00 Test Item Value Reference Range Interpretation Comments Creatinine Lvl (test code = Creatinine 0.84 0.50-1.40 Lvl) [facility] [employer] [id number] 08:03:00 Test Item Value Reference Range Interpretation Comments Sodium Lvl (test code = Sodium Lvl) 133 135-145 [place] 480482-07-25 08:03:00 Test Item Value Reference Range Interpretation Comments Potassium Lvl (test code = Potassium 4.4 3.5-5.1 Lvl) [place] 480482-07-25 08:03:00 Test Item Value Reference Range Interpretation Comments Chloride Lvl (test code = Chloride Lvl) 98 95-109 [place] 480482-07-25 08:03:00 Test Item Value Reference Range Interpretation Comments CO2 (test code = CO2) 25 24-32 [place] 480482-07-25 08:03:00 Test Item Value Reference Range Interpretation Comments AGAP (test code = AGAP) 14.4 10.0-20.0 [place] 480482-07-25 08:03:00 Test Item Value Reference Range Interpretation Comments Calcium Lvl (test code = Calcium Lvl) 9.1 8.5-10.5 [place] 480482-07-25 08:03:00 Test Item Value Reference Range Interpretation Comments B/C Ratio (test code = B/C Ratio) 25 1 6-25 [place] 480482-07-25 08:03:00 Test Item Value Reference Range Interpretation Comments Total Protein (test code = Total 6.7 6.4-8.4 Protein) [place] 480482-07-25 08:03:00 Test Item Value Reference Range Interpretation Comments Albumin Lvl (test code = Albumin Lvl) 3.2 3.5-5.0 [place] 480482-07-25 08:03:00 Test Item Value Reference Range Interpretation Comments Globulin (test code = Globulin) 3.5 2.7-4.2 [place] 480482-07-25 08:03:00 Test Item Value Reference Range Interpretation Comments A/G Ratio (test code = A/G Ratio) 0.9 1 0.7-1.6 [place] 480482-07-25 08:03:00 Test Item Value Reference Range Interpretation Comments ALT (test code = ALT) 19 See_Comment [Auto mated message] The system which ge nerated this result transmit lavon reference range : <=65. The reference range was not used to interpr et this result as dionne l/abnormal. [place] 480482-07-25 08:03:00 Test Item Value Reference Range Interpretation Comments AST (test code = AST) 26 See_Comment [Auto mated message] The system which ge nerated this result transmit lavon reference range : <=37. The reference range was not used to interpr et this result as dionne l/abnormal. [facility] [employer] [id number] 08:03:00 Test Item Value Reference Range Interpretation Comments Alk Phos (test code = Alk Phos) 56 39-136 [facility] [id number] 08:03:00 Test Item Value Reference Range Interpretation Comments Bili Total (test code = Bili Total) 1.0 0.2-1.3 [facility] [employer] [id number] 08:03:00 Test Item Value Reference Range Interpretation Comments eGFR (test code = eGFR) 67 [facility] [id number] 08:03:00 Test Item Value Reference Range Interpretation Comments Magnesium Lvl (test code = Magnesium 1.9 1.8-2.4 Lvl) [facility] [id number] 08:03:00 Test Item Value Reference Range Interpretation Comments Procalcitonin Lvl (test no gt See_Comment [Au tomated message] code = Procalcitonin Lvl) Th e system which generated this result transmitted ref erence range: <=0.10. The reference range was not used to interpr et this result as normal/abnormal . [facility] [employer] [id number] 08:03:00 Test Item Value Reference Range Interpretation Comments LDH (test code = LDH) 354 98-192 [facility]XqaoornBJDGFVZDPE7084-54-51 08:03:00 Test Item Value Reference Range Interpretation Comments WBC (test code = WBC) 7.5 3.7-10.4 [facility] HospitalQrkvhgpXMJQBQXUWS3038-38-34 08:03:00 Test Item Value Reference Range Interpretation Comments RBC (test code = RBC) 3.44 4.20-5.40 [facility] HospitalHhfnrhnSZTSMLBCUK8090-29-78 08:03:00 Test Item Value Reference Range Interpretation Comments Hgb (test code = Hgb) 8.3 12.0-16.0 [facility] CenterJpqvloxREUPBDVEXT7302-48-70 08:03:00 Test Item Value Reference Range Interpretation Comments Hct (test code = Hct) 26.2 36.0-48.0 [place] 325412-07-25 08:03:00 Test Item Value Reference Range Interpretation Comments MCV (test code = MCV) 76.1 80.0-98.0 [place] 325412-07-25 08:03:00 Test Item Value Reference Range Interpretation Comments MCH (test code = MCH) 24.0 pg 27.0-31.0 [place] 325412-07-25 08:03:00 Test Item Value Reference Range Interpretation Comments MCHC (test code = MCHC) 31.6 32.0-36.0 [place] 325412-07-25 08:03:00 Test Item Value Reference Range Interpretation Comments RDW (test code = RDW) 20.9 11.5-14.5 [place] 325412-07-25 08:03:00 Test Item Value Reference Range Interpretation Comments Platelet (test code = Platelet) 289 133-450 [facility] CampusSqdvessYCGPQPOABX8550-96-52 08:03:00 Test Item Value Reference Range Interpretation Comments MPV (test code = MPV) 7.5 7.4-10.4 [place] 325412-07-25 08:03:00 Test Item Value Reference Range Interpretation Comments Segs (test code = Segs) 94.0 45.0-75.0 [facility] CampusDunpiniQIRCBTQQLJ5721-47-41 08:03:00 Test Item Value Reference Range Interpretation Comments Lymphocytes (test code = Lymphocytes) 4.3 20.0-40.0 [place] 325412-07-25 08:03:00 Test Item Value Reference Range Interpretation Comments Monocytes (test code = Monocytes) 1.6 2.0-12.0 [place] [address]-07-25 08:03:00 Test Item Value Reference Range Interpretation Comments Basophils (test code = 0.1 See_Comment [Aut omated message] The Basophils) system which ge nerated this result tra nsmitted reference range : <=1.0. The reference r hugo was not used to int erpret this result as normal/abnormal . [facility] CampusJjprgqjDFCDQDXWTA3248-04-14 08:03:00 Test Item Value Reference Range Interpretation Comments Neutrophils # (test code = Neutrophils 7.0 1.5-8.1 #) [place] 325412-07-25 08:03:00 Test Item Value Reference Range Interpretation Comments Lymphocytes # (test code = Lymphocytes 0.3 1.0-5.5 #) [facility] HospitalYulpsanNUTAZLNGMJ8725-38-90 08:03:00 Test Item Value Reference Range Interpretation Comments Monocytes # (test code 0.1 See_Comment [Aut omated message] The = Monocytes #) system which generated this result tra nsmitted reference range : <=0.8. The reference r hugo was not used to int erpret this result as normal/abnormal . [facility] HospitalJwrjwevFUIMFCXIOV4626-93-33 08:03:00 Test Item Value Reference Range Interpretation Comments Microcyte (test code = 1+ *ABN*(06/13/22 Microcyte) 3:03 AM) [facility] 08:03:00 Test Item Value Reference Range Interpretation Comments HS Troponin I 1 Hr (test code = HS 50 Troponin I 1 Hr) [facility]ACTV[facility] [id number] 08:03:00 Test Item Value Reference Range Interpretation Comments HS Troponin I 0 to 1 See Note 5(06/13/22 Hour Delta (test code = 3:03 AM) HS Troponin I 0 to 1 Hour Delta) [facility] [employer]2022-07-25 08:03:00 Test Item Value Reference Range Interpretation Comments Glucose Lvl (test code = Glucose Lvl) 142 70-99 [facility] [employer] [id number] 08:03:00 Test Item Value Reference Range Interpretation Comments BUN (test code = BUN) 21 - [facility] [employer]2022-07-25 08:03:00 Test Item Value Reference Range Interpretation Comments Creatinine Lvl (test code = Creatinine 0.84 0.50-1.40 Lvl) [facility] CenterS[facility] Egil KvalebergITUXJ3898-80-09 08:03:00 Test Item Value Reference Range Interpretation Comments Sodium Lvl (test code = Sodium Lvl) 133 135-145 [facility] [employer] [id number] 08:03:00 Test Item Value Reference Range Interpretation Comments Potassium Lvl (test code = Potassium 4.4 3.5-5.1 Lvl) [facility] [employer]2022-07-25 08:03:00 Test Item Value Reference Range Interpretation Comments Chloride Lvl (test code = Chloride Lvl) 98 95-109 [place] 480482-07-25 08:03:00 Test Item Value Reference Range Interpretation Comments CO2 (test code = CO2) 25 24-32 [place] [address]-07-25 08:03:00 Test Item Value Reference Range Interpretation Comments AGAP (test code = AGAP) 14.4 10.0-20.0 [place] 480482-07-25 08:03:00 Test Item Value Reference Range Interpretation Comments Calcium Lvl (test code = Calcium Lvl) 9.1 8.5-10.5 [place] [address]-07-25 08:03:00 Test Item Value Reference Range Interpretation Comments B/C Ratio (test code = B/C Ratio) 25 1 6-25 [place] [address]-07-25 08:03:00 Test Item Value Reference Range Interpretation Comments Total Protein (test code = Total 6.7 6.4-8.4 Protein) [place] 480482-07-25 08:03:00 Test Item Value Reference Range Interpretation Comments Albumin Lvl (test code = Albumin Lvl) 3.2 3.5-5.0 [place] 480482-07-25 08:03:00 Test Item Value Reference Range Interpretation Comments Globulin (test code = Globulin) 3.5 2.7-4.2 [facility] [id number] 08:03:00 Test Item Value Reference Range Interpretation Comments A/G Ratio (test code = A/G Ratio) 0.9 1 0.7-1.6 [place] [address]-07-25 08:03:00 Test Item Value Reference Range Interpretation Comments ALT (test code = ALT) 19 See_Comment [Auto mated message] The system which ge nerated this result transmit lavon reference range : <=65. The reference range was not used to interpr et this result as dionne l/abnormal. [facility] [id number] 08:03:00 Test Item Value Reference Range Interpretation Comments AST (test code = AST) 26 See_Comment [Auto mated message] The system which ge nerated this result transmit lavon reference range : <=37. The reference range was not used to interpr et this result as dionne l/abnormal. [facility] [id number] 08:03:00 Test Item Value Reference Range Interpretation Comments Alk Phos (test code = Alk Phos) 56 39-136 [place] 480482-07-25 08:03:00 Test Item Value Reference Range Interpretation Comments Bili Total (test code = Bili Total) 1.0 0.2-1.3 [place] 480482-07-25 08:03:00 Test Item Value Reference Range Interpretation Comments eGFR (test code = eGFR) 67 [place] 480482-07-25 08:03:00 Test Item Value Reference Range Interpretation Comments Magnesium Lvl (test code = Magnesium 1.9 1.8-2.4 Lvl) [place] 480482-07-25 08:03:00 Test Item Value Reference Range Interpretation Comments Procalcitonin Lvl (test no gt See_Comment [Au tomated message] code = Procalcitonin Lvl) e system which generated this result transmitted ref erence range: <=0.10. The reference range was not used to interpr et this result as normal/abnormal . [place] 480482-07-25 08:03:00 Test Item Value Reference Range Interpretation Comments LDH (test code = LDH) 354 98-192 [place] [address]-07-25 08:03:00 Test Item Value Reference Range Interpretation Comments WBC (test code = WBC) 7.5 3.7-10.4 [place] [address]-07-25 08:03:00 Test Item Value Reference Range Interpretation Comments RBC (test code = RBC) 3.44 4.20-5.40 [place] [address]-07-25 08:03:00 Test Item Value Reference Range Interpretation Comments Hgb (test code = Hgb) 8.3 12.0-16.0 [place] [address]-07-25 08:03:00 Test Item Value Reference Range Interpretation Comments Hct (test code = Hct) 26.2 36.0-48.0 [place] [address]-07-25 08:03:00 Test Item Value Reference Range Interpretation Comments MCV (test code = MCV) 76.1 80.0-98.0 [place] [address]-07-25 08:03:00 Test Item Value Reference Range Interpretation Comments MCH (test code = MCH) 24.0 pg 27.0-31.0 [place] 325412-07-25 08:03:00 Test Item Value Reference Range Interpretation Comments MCHC (test code = MCHC) 31.6 32.0-36.0 [place] 325412-07-25 08:03:00 Test Item Value Reference Range Interpretation Comments RDW (test code = RDW) 20.9 11.5-14.5 [place] 325412-07-25 08:03:00 Test Item Value Reference Range Interpretation Comments Platelet (test code = Platelet) 289 133-450 [place] 325412-07-25 08:03:00 Test Item Value Reference Range Interpretation Comments MPV (test code = MPV) 7.5 7.4-10.4 [place] 325412-07-25 08:03:00 Test Item Value Reference Range Interpretation Comments Segs (test code = Segs) 94.0 45.0-75.0 [place] 325412-07-25 08:03:00 Test Item Value Reference Range Interpretation Comments Lymphocytes (test code = Lymphocytes) 4.3 20.0-40.0 [place] 325412-07-25 08:03:00 Test Item Value Reference Range Interpretation Comments Monocytes (test code = Monocytes) 1.6 2.0-12.0 [place] [address]-07-25 08:03:00 Test Item Value Reference Range Interpretation Comments Basophils (test code = 0.1 See_Comment [Aut omated message] The Basophils) system which ge nerated this result tra nsmitted reference range : <=1.0. The reference r hugo was not used to int erpret this result as normal/abnormal . [facility] CampusXgtuawrBQEGJGTGDW8582-37-27 08:03:00 Test Item Value Reference Range Interpretation Comments Neutrophils # (test code = Neutrophils 7.0 1.5-8.1 #) [place] 325412-07-25 08:03:00 Test Item Value Reference Range Interpretation Comments Lymphocytes # (test code = Lymphocytes 0.3 1.0-5.5 #) [place] 325412-07-25 08:03:00 Test Item Value Reference Range Interpretation Comments Monocytes # (test code 0.1 See_Comment [Aut omated message] The = Monocytes #) system which generated this result tra nsmitted reference range : <=0.8. The reference r hugo was not used to int erpret this result as normal/abnormal . [facility]och[facility]HDWVWJVXP2467[facility]36-[facility] 08:03:00 Test Item Value Reference Range Interpretation Comments Microcyte (test code = 1+ *ABN*(06/13/22 Microcyte) 3:03 AM) [facility] [id number] 08:03:00 Test Item Value Reference Range Interpretation Comments HS Troponin I 1 Hr (test code = HS 50 Troponin I 1 Hr) [facility] [id number] 08:03:00 Test Item Value Reference Range Interpretation Comments HS Troponin I 0 to 1 See Note 5(06/13/22 Hour Delta (test code = 3:03 AM) HS Troponin I 0 to 1 Hour Delta) [facility]2022-07-25 08:03:00 Test Item Value Reference Range Interpretation Comments Glucose Lvl (test code = Glucose Lvl) 142 70-99 [facility]2022-07-25 08:03:00 Test Item Value Reference Range Interpretation Comments BUN (test code = BUN) 21 - [facility]2022-07-25 08:03:00 Test Item Value Reference Range Interpretation Comments Creatinine Lvl (test code = Creatinine 0.84 0.50-1.40 Lvl) [facility]2022-07-25 08:03:00 Test Item Value Reference Range Interpretation Comments Sodium Lvl (test code = Sodium Lvl) 133 135-145 [facility]2022-07-25 08:03:00 Test Item Value Reference Range Interpretation Comments Potassium Lvl (test code = Potassium 4.4 3.5-5.1 Lvl) [facility]2022-07-25 08:03:00 Test Item Value Reference Range Interpretation Comments Chloride Lvl (test code = Chloride Lvl) 98 95-109 [facility]2022-07-25 08:03:00 Test Item Value Reference Range Interpretation Comments CO2 (test code = CO2) 25 24-32 [facility]2022-07-25 08:03:00 Test Item Value Reference Range Interpretation Comments AGAP (test code = AGAP) 14.4 10.0-20.0 [facility] [id number] 08:03:00 Test Item Value Reference Range Interpretation Comments Calcium Lvl (test code = Calcium Lvl) 9.1 8.5-10.5 [facility] [id number] 08:03:00 Test Item Value Reference Range Interpretation Comments B/C Ratio (test code = B/C Ratio) 25 1 6-25 [facility] [id number] 08:03:00 Test Item Value Reference Range Interpretation Comments Total Protein (test code = Total 6.7 6.4-8.4 Protein) [facility] CenterIRIS.TVDAV[place] 99187OWJDN2549-54-09 08:03:00 Test Item Value Reference Range Interpretation Comments Albumin Lvl (test code = Albumin Lvl) 3.2 3.5-5.0 [facility] [id number] 08:03:00 Test Item Value Reference Range Interpretation Comments Globulin (test code = Globulin) 3.5 2.7-4.2 [facility] [id number] 08:03:00 Test Item Value Reference Range Interpretation Comments A/G Ratio (test code = A/G Ratio) 0.9 1 0.7-1.6 [facility] [id number] 08:03:00 Test Item Value Reference Range Interpretation Comments ALT (test code = ALT) 19 See_Comment [Auto mated message] The system which ge nerated this result transmit lavon reference range : <=65. The reference range was not used to interpr et this result as dionne l/abnormal. [facility] [employer] [id number] 08:03:00 Test Item Value Reference Range Interpretation Comments AST (test code = AST) 26 See_Comment [Auto mated message] The system which ge nerated this result transmit lavon reference range : <=37. The reference range was not used to interpr et this result as dionne l/abnormal. [facility] [employer] [id number] 08:03:00 Test Item Value Reference Range Interpretation Comments Alk Phos (test code = Alk Phos) 56 39-136 [facility] [id number] 08:03:00 Test Item Value Reference Range Interpretation Comments Bili Total (test code = Bili Total) 1.0 0.2-1.3 [facility] [id number] 08:03:00 Test Item Value Reference Range Interpretation Comments eGFR (test code = eGFR) 67 [facility]2022-07-25 08:03:00 Test Item Value Reference Range Interpretation Comments Magnesium Lvl (test code = Magnesium 1.9 1.8-2.4 Lvl) [place] 480482-07-25 08:03:00 Test Item Value Reference Range Interpretation Comments Procalcitonin Lvl (test no gt See_Comment [Au tomated message] code = Procalcitonin Lvl) e system which generated this result transmitted ref erence range: <=0.10. The reference range was not used to interpr et this result as normal/abnormal . [place] 480482-07-25 08:03:00 Test Item Value Reference Range Interpretation Comments LDH (test code = LDH) 354 98-192 [facility] CampusQsienmrNKRSQHETUR1415-27-43 08:03:00 Test Item Value Reference Range Interpretation Comments WBC (test code = WBC) 7.5 3.7-10.4 [place] 325412-07-25 08:03:00 Test Item Value Reference Range Interpretation Comments RBC (test code = RBC) 3.44 4.20-5.40 [place] 325412-07-25 08:03:00 Test Item Value Reference Range Interpretation Comments Hgb (test code = Hgb) 8.3 12.0-16.0 [place] [address]-07-25 08:03:00 Test Item Value Reference Range Interpretation Comments Hct (test code = Hct) 26.2 36.0-48.0 [place] 325412-07-25 08:03:00 Test Item Value Reference Range Interpretation Comments MCV (test code = MCV) 76.1 80.0-98.0 [place] 325412-07-25 08:03:00 Test Item Value Reference Range Interpretation Comments MCH (test code = MCH) 24.0 pg 27.0-31.0 [place] [address]-07-25 08:03:00 Test Item Value Reference Range Interpretation Comments MCHC (test code = MCHC) 31.6 32.0-36.0 [place] 325412-07-25 08:03:00 Test Item Value Reference Range Interpretation Comments RDW (test code = RDW) 20.9 11.5-14.5 [place] 325412-07-25 08:03:00 Test Item Value Reference Range Interpretation Comments Platelet (test code = Platelet) 289 133-450 [facility] CampusDcklxxjNIWJRXCYJE0395-64-57 08:03:00 Test Item Value Reference Range Interpretation Comments MPV (test code = MPV) 7.5 7.4-10.4 [place] 325412-07-25 08:03:00 Test Item Value Reference Range Interpretation Comments Segs (test code = Segs) 94.0 45.0-75.0 [place] 325412-07-25 08:03:00 Test Item Value Reference Range Interpretation Comments Lymphocytes (test code = Lymphocytes) 4.3 20.0-40.0 [place] [address]-07-25 08:03:00 Test Item Value Reference Range Interpretation Comments Monocytes (test code = Monocytes) 1.6 2.0-12.0 [place] 325412-07-25 08:03:00 Test Item Value Reference Range Interpretation Comments Basophils (test code = 0.1 See_Comment [Aut omated message] The Basophils) system which ge nerated this result tra nsmitted reference range : <=1.0. The reference r hugo was not used to int erpret this result as normal/abnormal . [place] 325412-07-25 08:03:00 Test Item Value Reference Range Interpretation Comments Neutrophils # (test code = Neutrophils 7.0 1.5-8.1 #) [place] 325412-07-25 08:03:00 Test Item Value Reference Range Interpretation Comments Lymphocytes # (test code = Lymphocytes 0.3 1.0-5.5 #) [place] [address]-07-25 08:03:00 Test Item Value Reference Range Interpretation Comments Monocytes # (test code 0.1 See_Comment [Aut omated message] The = Monocytes #) system which generated this result tra nsmitted reference range : <=0.8. The reference r hugo was not used to int erpret this result as normal/abnormal . [place] 325412-07-25 08:03:00 Test Item Value Reference Range Interpretation Comments Microcyte (test code = 1+ *ABN*(06/13/22 Microcyte) 3:03 AM) [facility] [id number] 08:03:00 Test Item Value Reference Range Interpretation Comments HS Troponin I 1 Hr (test code = HS 50 Troponin I 1 Hr) [facility]ACTV[facility]AC [id number] 08:03:00 Test Item Value Reference Range Interpretation Comments HS Troponin I 0 to 1 See Note 5(06/13/22 Hour Delta (test code = 3:03 AM) HS Troponin I 0 to 1 Hour Delta) [facility] [employer] [id number] 08:03:00 Test Item Value Reference Range Interpretation Comments Glucose Lvl (test code = Glucose Lvl) 142 70-99 [facility] [employer] [id number] 08:03:00 Test Item Value Reference Range Interpretation Comments BUN (test code = BUN) 21 06-10 [facility] [employer] [id number] 08:03:00 Test Item Value Reference Range Interpretation Comments Creatinine Lvl (test code = Creatinine 0.84 0.50-1.40 Lvl) [facility] [employer] [id number] 08:03:00 Test Item Value Reference Range Interpretation Comments Sodium Lvl (test code = Sodium Lvl) 133 135-145 [facility] [employer] [id number] 08:03:00 Test Item Value Reference Range Interpretation Comments Potassium Lvl (test code = Potassium 4.4 3.5-5.1 Lvl) [facility] [employer] [id number] 08:03:00 Test Item Value Reference Range Interpretation Comments Chloride Lvl (test code = Chloride Lvl) 98 95-109 [facility] [employer] [id number] 08:03:00 Test Item Value Reference Range Interpretation Comments CO2 (test code = CO2) 25 24-32 [facility] [employer] [id number] 08:03:00 Test Item Value Reference Range Interpretation Comments AGAP (test code = AGAP) 14.4 10.0-20.0 [facility] [employer] [id number] 08:03:00 Test Item Value Reference Range Interpretation Comments Calcium Lvl (test code = Calcium Lvl) 9.1 8.5-10.5 [facility] [employer] [id number] 08:03:00 Test Item Value Reference Range Interpretation Comments B/C Ratio (test code = B/C Ratio) 25 1 6-25 [facility] [id number] 08:03:00 Test Item Value Reference Range Interpretation Comments Total Protein (test code = Total 6.7 6.4-8.4 Protein) [place] 480482-07-25 08:03:00 Test Item Value Reference Range Interpretation Comments Albumin Lvl (test code = Albumin Lvl) 3.2 3.5-5.0 [facility] [id number] 08:03:00 Test Item Value Reference Range Interpretation Comments Globulin (test code = Globulin) 3.5 2.7-4.2 [facility] [id number] 08:03:00 Test Item Value Reference Range Interpretation Comments A/G Ratio (test code = A/G Ratio) 0.9 1 0.7-1.6 [facility] [id number] 08:03:00 Test Item Value Reference Range Interpretation Comments ALT (test code = ALT) 19 See_Comment [Auto mated message] The system which ge nerated this result transmit lavon reference range : <=65. The reference range was not used to interpr et this result as dionne l/abnormal. [facility] [id number] 08:03:00 Test Item Value Reference Range Interpretation Comments AST (test code = AST) 26 See_Comment [Auto mated message] The system which ge nerated this result transmit lavon reference range : <=37. The reference range was not used to interpr et this result as dionne l/abnormal. [facility] [id number] 08:03:00 Test Item Value Reference Range Interpretation Comments Alk Phos (test code = Alk Phos) 56 39-136 [facility] [id number] 08:03:00 Test Item Value Reference Range Interpretation Comments Bili Total (test code = Bili Total) 1.0 0.2-1.3 [facility] [id number] 08:03:00 Test Item Value Reference Range Interpretation Comments eGFR (test code = eGFR) 67 [facility] [id number] 08:03:00 Test Item Value Reference Range Interpretation Comments Magnesium Lvl (test code = Magnesium 1.9 1.8-2.4 Lvl) [place] 480482-07-25 08:03:00 Test Item Value Reference Range Interpretation Comments Procalcitonin Lvl (test no gt See_Comment [Au tomated message] code = Procalcitonin Lvl) Th e system which generated this result transmitted ref erence range: <=0.10. The reference range was not used to interpr et this result as normal/abnormal . [facility]2022-07-25 08:03:00 Test Item Value Reference Range Interpretation Comments LDH (test code = LDH) 354 98-192 [facility] [id number] 08:03:00 Test Item Value Reference Range Interpretation Comments WBC (test code = WBC) 7.5 3.7-10.4 [facility] CampusHhfavgqCYIBPRCXDP1570-73-71 08:03:00 Test Item Value Reference Range Interpretation Comments RBC (test code = RBC) 3.44 4.20-5.40 [facility] CampusZiqhhlrQGPZFTZRDY3833-92-50 08:03:00 Test Item Value Reference Range Interpretation Comments Hgb (test code = Hgb) 8.3 12.0-16.0 [facility] CampusRaibvhyOGCALAPCWS6792-62-48 08:03:00 Test Item Value Reference Range Interpretation Comments Hct (test code = Hct) 26.2 36.0-48.0 [facility] CampusOyiayddMMXUYLBKXK5252-83-72 08:03:00 Test Item Value Reference Range Interpretation Comments MCV (test code = MCV) 76.1 80.0-98.0 [facility] CampusBlmanfsHHJHGICQPM2009-05-96 08:03:00 Test Item Value Reference Range Interpretation Comments MCH (test code = MCH) 24.0 pg 27.0-31.0 [facility] CampusPxeowwsYYKVMYHRNA1087-53-43 08:03:00 Test Item Value Reference Range Interpretation Comments MCHC (test code = MCHC) 31.6 32.0-36.0 [place] 325412-07-25 08:03:00 Test Item Value Reference Range Interpretation Comments RDW (test code = RDW) 20.9 11.5-14.5 [place] 325412-07-25 08:03:00 Test Item Value Reference Range Interpretation Comments Platelet (test code = Platelet) 289 133-450 [facility] CampusByfcfalZXOGRXAUTM8288-01-79 08:03:00 Test Item Value Reference Range Interpretation Comments MPV (test code = MPV) 7.5 7.4-10.4 [facility] CampusLbplbfzVDHDKDHYRH0099-36-30 08:03:00 Test Item Value Reference Range Interpretation Comments Segs (test code = Segs) 94.0 45.0-75.0 [facility] CampusOsfttybAYSUAJNKAR0877-14-55 08:03:00 Test Item Value Reference Range Interpretation Comments Lymphocytes (test code = Lymphocytes) 4.3 20.0-40.0 [facility] CampusWkomuwoURZMJFILKX5005-97-24 08:03:00 Test Item Value Reference Range Interpretation Comments Monocytes (test code = Monocytes) 1.6 2.0-12.0 [facility] CampusGdlqkjhTYJUFGCNEZ6164-38-12 08:03:00 Test Item Value Reference Range Interpretation Comments Basophils (test code = 0.1 See_Comment [Aut omated message] The Basophils) system which ge nerated this result tra nsmitted reference range : <=1.0. The reference r hugo was not used to int erpret this result as normal/abnormal . [facility]IawrsyhCTZVEULWFI4790-11-38 08:03:00 Test Item Value Reference Range Interpretation Comments Neutrophils # (test code = Neutrophils 7.0 1.5-8.1 #) [facility] CampusHpjobbfHJJSSOUZFM9992-16-46 08:03:00 Test Item Value Reference Range Interpretation Comments Lymphocytes # (test code = Lymphocytes 0.3 1.0-5.5 #) [facility] CampusMuqghdoWMNYCUUZJO3935-01-77 08:03:00 Test Item Value Reference Range Interpretation Comments Monocytes # (test code 0.1 See_Comment [Aut omated message] The = Monocytes #) system which generated this result tra nsmitted reference range : <=0.8. The reference r hugo was not used to int erpret this result as normal/abnormal . [facility] HospitalObgbqeuTWGINHYBEH9183-21-56 08:03:00 Test Item Value Reference Range Interpretation Comments Microcyte (test code = 1+ *ABN*(06/13/22 Microcyte) 3:03 AM) [facility] HospitalS[facility] Technology [id number] 08:03:00 Test Item Value Reference Range Interpretation Comments HS Troponin I 1 Hr (test code = HS 50 Troponin I 1 Hr) [facility] [id number] 08:03:00 Test Item Value Reference Range Interpretation Comments HS Troponin I 0 to 1 See Note 5(06/13/22 Hour Delta (test code = 3:03 AM) HS Troponin I 0 to 1 Hour Delta) [place] 480482-07-25 08:03:00 Test Item Value Reference Range Interpretation Comments Glucose Lvl (test code = Glucose Lvl) 142 70-99 [place] 480482-07-25 08:03:00 Test Item Value Reference Range Interpretation Comments BUN (test code = BUN) 21 7- [place] 480482-07-25 08:03:00 Test Item Value Reference Range Interpretation Comments Creatinine Lvl (test code = Creatinine 0.84 0.50-1.40 Lvl) [place] 480482-07-25 08:03:00 Test Item Value Reference Range Interpretation Comments Sodium Lvl (test code = Sodium Lvl) 133 135-145 [place] 480482-07-25 08:03:00 Test Item Value Reference Range Interpretation Comments Potassium Lvl (test code = Potassium 4.4 3.5-5.1 Lvl) [place] 480482-07-25 08:03:00 Test Item Value Reference Range Interpretation Comments Chloride Lvl (test code = Chloride Lvl) 98 95-109 [place] 480482-07-25 08:03:00 Test Item Value Reference Range Interpretation Comments CO2 (test code = CO2) 25 24-32 [place] 480482-07-25 08:03:00 Test Item Value Reference Range Interpretation Comments AGAP (test code = AGAP) 14.4 10.0-20.0 [place] 480482-07-25 08:03:00 Test Item Value Reference Range Interpretation Comments Calcium Lvl (test code = Calcium Lvl) 9.1 8.5-10.5 [place] 480482-07-25 08:03:00 Test Item Value Reference Range Interpretation Comments B/C Ratio (test code = B/C Ratio) 25 1 6-25 [place] 480482-07-25 08:03:00 Test Item Value Reference Range Interpretation Comments Total Protein (test code = Total 6.7 6.4-8.4 Protein) [place] 480482-07-25 08:03:00 Test Item Value Reference Range Interpretation Comments Albumin Lvl (test code = Albumin Lvl) 3.2 3.5-5.0 [facility] [id number] 08:03:00 Test Item Value Reference Range Interpretation Comments Globulin (test code = Globulin) 3.5 2.7-4.2 [facility] CenterIRIS.TVJ[facility] [facility] 21653DBPFO5871-58-82 08:03:00 Test Item Value Reference Range Interpretation Comments A/G Ratio (test code = A/G Ratio) 0.9 1 0.7-1.6 [facility] [id number] 08:03:00 Test Item Value Reference Range Interpretation Comments ALT (test code = ALT) 19 See_Comment [Auto mated message] The system which ge nerated this result transmit lavon reference range : <=65. The reference range was not used to interpr et this result as dionne l/abnormal. [facility] [id number] 08:03:00 Test Item Value Reference Range Interpretation Comments AST (test code = AST) 26 See_Comment [Auto mated message] The system which ge nerated this result transmit lavon reference range : <=37. The reference range was not used to interpr et this result as dionne l/abnormal. [facility] [id number] 08:03:00 Test Item Value Reference Range Interpretation Comments Alk Phos (test code = Alk Phos) 56 39-136 [facility] [id number] 08:03:00 Test Item Value Reference Range Interpretation Comments Bili Total (test code = Bili Total) 1.0 0.2-1.3 [facility] FEGVZ9959-01-25 08:03:00 Test Item Value Reference Range Interpretation Comments eGFR (test code = eGFR) 67 [facility] [id number] 08:03:00 Test Item Value Reference Range Interpretation Comments Magnesium Lvl (test code = Magnesium 1.9 1.8-2.4 Lvl) [facility] [id number] 08:03:00 Test Item Value Reference Range Interpretation Comments Procalcitonin Lvl (test no gt See_Comment [Au tomated message] code = Procalcitonin Lvl) Th e system which generated this result transmitted ref erence range: <=0.10. The reference range was not used to interpr et this result as normal/abnormal . [facility] [employer] [id number] 08:03:00 Test Item Value Reference Range Interpretation Comments LDH (test code = LDH) 354 98-192 [facility] CampusTnaudktMPGCYVRNCE7078-23-36 08:03:00 Test Item Value Reference Range Interpretation Comments WBC (test code = WBC) 7.5 3.7-10.4 [facility] CampusJfjsxzrIAZEZETCAC2646-23-73 08:03:00 Test Item Value Reference Range Interpretation Comments RBC (test code = RBC) 3.44 4.20-5.40 [place] 325412-07-25 08:03:00 Test Item Value Reference Range Interpretation Comments Hgb (test code = Hgb) 8.3 12.0-16.0 [place] 325412-07-25 08:03:00 Test Item Value Reference Range Interpretation Comments Hct (test code = Hct) 26.2 36.0-48.0 [facility] CampusIehypgyUJZNXGQWJA2317-38-53 08:03:00 Test Item Value Reference Range Interpretation Comments MCV (test code = MCV) 76.1 80.0-98.0 [facility] CampusXiojewmSCNMZYQEMJ2618-22-65 08:03:00 Test Item Value Reference Range Interpretation Comments MCH (test code = MCH) 24.0 pg 27.0-31.0 [facility] CampusEytpflqIUVDEZIXLF9928-28-67 08:03:00 Test Item Value Reference Range Interpretation Comments MCHC (test code = MCHC) 31.6 32.0-36.0 [facility] CampusQklcjvwVOJSJIHCHO4939-15-82 08:03:00 Test Item Value Reference Range Interpretation Comments RDW (test code = RDW) 20.9 11.5-14.5 [facility] CampusEmmbyoaTSKGIXVQJI6685-56-00 08:03:00 Test Item Value Reference Range Interpretation Comments Platelet (test code = Platelet) 289 133-450 [facility] CampusQvlwgegDPVIVAGMOT0811-57-21 08:03:00 Test Item Value Reference Range Interpretation Comments MPV (test code = MPV) 7.5 7.4-10.4 [place] 325412-07-25 08:03:00 Test Item Value Reference Range Interpretation Comments Segs (test code = Segs) 94.0 45.0-75.0 [place] 325412-07-25 08:03:00 Test Item Value Reference Range Interpretation Comments Lymphocytes (test code = Lymphocytes) 4.3 20.0-40.0 [facility] CenterKhivnruWCOGOAUMFB9918-25-98 08:03:00 Test Item Value Reference Range Interpretation Comments Monocytes (test code = Monocytes) 1.6 2.0-12.0 [facility] HospitalJnirwsaIIGGSUROSY9700-20-09 08:03:00 Test Item Value Reference Range Interpretation Comments Basophils (test code = 0.1 See_Comment [Aut omated message] The Basophils) system which ge nerated this result tra nsmitted reference range : <=1.0. The reference r hugo was not used to int erpret this result as normal/abnormal . [facility] CenterDffeffmXQECCABMLX2466-53-55 08:03:00 Test Item Value Reference Range Interpretation Comments Neutrophils # (test code = Neutrophils 7.0 1.5-8.1 #) [facility] HospitalNymhpikTJUWABSBPA6275-87-34 08:03:00 Test Item Value Reference Range Interpretation Comments Lymphocytes # (test code = Lymphocytes 0.3 1.0-5.5 #) [facility] CenterWgqqxizFLJOMPDYYZ5399-90-17 08:03:00 Test Item Value Reference Range Interpretation Comments Monocytes # (test code 0.1 See_Comment [Aut omated message] The = Monocytes #) system which generated this result tra nsmitted reference range : <=0.8. The reference r hugo was not used to int erpret this result as normal/abnormal . [facility] HospitalIglshdhGEUPOXOLNU0624-14-23 08:03:00 Test Item Value Reference Range Interpretation Comments Microcyte (test code = 1+ *ABN*(06/13/22 Microcyte) 3:03 AM) [facility] CenterJimmy [facility]ly[facility] 08:03:00 Test Item Value Reference Range Interpretation Comments HS Troponin I 1 Hr (test code = HS 50 Troponin I 1 Hr) [facility] 08:03:00 Test Item Value Reference Range Interpretation Comments HS Troponin I 0 to 1 See Note 5(06/13/22 Hour Delta (test code = 3:03 AM) HS Troponin I 0 to 1 Hour Delta) [facility] CenterSiving Egil KvalebergJNFBU9258-08-26 08:03:00 Test Item Value Reference Range Interpretation Comments Glucose Lvl (test code = Glucose Lvl) 142 70-99 [facility] [employer] Alert2022-07-25 08:03:00 Test Item Value Reference Range Interpretation Comments BUN (test code = BUN) 21 7-22 [place] 480482-07-25 08:03:00 Test Item Value Reference Range Interpretation Comments Creatinine Lvl (test code = Creatinine 0.84 0.50-1.40 Lvl) [place] 480482-07-25 08:03:00 Test Item Value Reference Range Interpretation Comments Sodium Lvl (test code = Sodium Lvl) 133 135-145 [place] 480482-07-25 08:03:00 Test Item Value Reference Range Interpretation Comments Potassium Lvl (test code = Potassium 4.4 3.5-5.1 Lvl) [place] 480482-07-25 08:03:00 Test Item Value Reference Range Interpretation Comments Chloride Lvl (test code = Chloride Lvl) 98 95-109 [place] 480482-07-25 08:03:00 Test Item Value Reference Range Interpretation Comments CO2 (test code = CO2) 24-32 [place] 480482-07-25 08:03:00 Test Item Value Reference Range Interpretation Comments AGAP (test code = AGAP) 14.4 10.0-20.0 [place] 480482-07-25 08:03:00 Test Item Value Reference Range Interpretation Comments Calcium Lvl (test code = Calcium Lvl) 9.1 8.5-10.5 [place] 480482-07-25 08:03:00 Test Item Value Reference Range Interpretation Comments B/C Ratio (test code = B/C Ratio) 25 1 6-25 [place] 480482-07-25 08:03:00 Test Item Value Reference Range Interpretation Comments Total Protein (test code = Total 6.7 6.4-8.4 Protein) [place] 480482-07-25 08:03:00 Test Item Value Reference Range Interpretation Comments Albumin Lvl (test code = Albumin Lvl) 3.2 3.5-5.0 [place] 480482-07-25 08:03:00 Test Item Value Reference Range Interpretation Comments Globulin (test code = Globulin) 3.5 2.7-4.2 [place] 480482-07-25 08:03:00 Test Item Value Reference Range Interpretation Comments A/G Ratio (test code = A/G Ratio) 0.9 1 0.7-1.6 [facility] [employer] Alert2022-07-25 08:03:00 Test Item Value Reference Range Interpretation Comments ALT (test code = ALT) 19 See_Comment [Auto mated message] The system which ge nerated this result transmit lavon reference range : <=65. The reference range was not used to interpr et this result as dionne l/abnormal. [facility] [employer]2022-07-25 08:03:00 Test Item Value Reference Range Interpretation Comments AST (test code = AST) 26 See_Comment [Auto mated message] The system which ge nerated this result transmit lavon reference range : <=37. The reference range was not used to interpr et this result as dionne l/abnormal. [facility] [employer] [id number] 08:03:00 Test Item Value Reference Range Interpretation Comments Alk Phos (test code = Alk Phos) 56 39-136 [facility] [employer] [id number] 08:03:00 Test Item Value Reference Range Interpretation Comments Bili Total (test code = Bili Total) 1.0 0.2-1.3 [facility] [employer] [id number] 08:03:00 Test Item Value Reference Range Interpretation Comments eGFR (test code = eGFR) 67 [facility] [employer] [id number] 08:03:00 Test Item Value Reference Range Interpretation Comments Magnesium Lvl (test code = Magnesium 1.9 1.8-2.4 Lvl) [facility] [id number] 08:03:00 Test Item Value Reference Range Interpretation Comments Procalcitonin Lvl (test no gt See_Comment [Au tomated message] code = Procalcitonin Lvl) Th e system which generated this result transmitted ref erence range: <=0.10. The reference range was not used to interpr et this result as normal/abnormal . [facility] [employer] [id number] 08:03:00 Test Item Value Reference Range Interpretation Comments LDH (test code = LDH) 354 98-192 [facility] CenterDtctiriNERKDZPOGS1244-45-96 08:03:00 Test Item Value Reference Range Interpretation Comments WBC (test code = WBC) 7.5 3.7-10.4 [facility] CenterWaknrorZCWRBWMZZF5480-81-80 08:03:00 Test Item Value Reference Range Interpretation Comments RBC (test code = RBC) 3.44 4.20-5.40 [place] 325412-07-25 08:03:00 Test Item Value Reference Range Interpretation Comments Hgb (test code = Hgb) 8.3 12.0-16.0 [place] 325412-07-25 08:03:00 Test Item Value Reference Range Interpretation Comments Hct (test code = Hct) 26.2 36.0-48.0 [place] 325412-07-25 08:03:00 Test Item Value Reference Range Interpretation Comments MCV (test code = MCV) 76.1 80.0-98.0 [place] 325412-07-25 08:03:00 Test Item Value Reference Range Interpretation Comments MCH (test code = MCH) 24.0 pg 27.0-31.0 [facility] CampusOlpquahVIRRJHYXEQ7624-66-32 08:03:00 Test Item Value Reference Range Interpretation Comments MCHC (test code = MCHC) 31.6 32.0-36.0 [place] 325412-07-25 08:03:00 Test Item Value Reference Range Interpretation Comments RDW (test code = RDW) 20.9 11.5-14.5 [place] 325412-07-25 08:03:00 Test Item Value Reference Range Interpretation Comments Platelet (test code = Platelet) 289 133-450 [facility] CampusDxikpwaNNAOZWCKYP1981-19-30 08:03:00 Test Item Value Reference Range Interpretation Comments MPV (test code = MPV) 7.5 7.4-10.4 [place] 325412-07-25 08:03:00 Test Item Value Reference Range Interpretation Comments Segs (test code = Segs) 94.0 45.0-75.0 [place] 325412-07-25 08:03:00 Test Item Value Reference Range Interpretation Comments Lymphocytes (test code = Lymphocytes) 4.3 20.0-40.0 [place] [address]-07-25 08:03:00 Test Item Value Reference Range Interpretation Comments Monocytes (test code = Monocytes) 1.6 2.0-12.0 [place] 325412-07-25 08:03:00 Test Item Value Reference Range Interpretation Comments Basophils (test code = 0.1 See_Comment [Aut omated message] The Basophils) system which ge nerated this result tra nsmitted reference range : <=1.0. The reference r hugo was not used to int erpret this result as normal/abnormal . [facility] CenterXsnektaNGTJRWIJSC4236-07-43 08:03:00 Test Item Value Reference Range Interpretation Comments Neutrophils # (test code = Neutrophils 7.0 1.5-8.1 #) [facility] CenterCjpmillELUXOZSASA9166-92-83 08:03:00 Test Item Value Reference Range Interpretation Comments Lymphocytes # (test code = Lymphocytes 0.3 1.0-5.5 #) [facility] CenterFqudydnHLEJDDYUQQ8925-23-36 08:03:00 Test Item Value Reference Range Interpretation Comments Monocytes # (test code 0.1 See_Comment [Aut omated message] The = Monocytes #) system which generated this result tra nsmitted reference range : <=0.8. The reference r hguo was not used to int erpret this result as normal/abnormal . [facility] CenterIixsrijKHQQVNWEPY1454-35-76 08:03:00 Test Item Value Reference Range Interpretation Comments Microcyte (test code = 1+ *ABN*(06/13/22 Microcyte) 3:03 AM) [facility] 08:03:00 Test Item Value Reference Range Interpretation Comments HS Troponin I 1 Hr (test code = HS 50 Troponin I 1 Hr) [facility] 08:03:00 Test Item Value Reference Range Interpretation Comments HS Troponin I 0 to 1 See Note 5(06/13/22 Hour Delta (test code = 3:03 AM) HS Troponin I 0 to 1 Hour Delta) [facility] [employer] Alert2022-07-25 08:03:00 Test Item Value Reference Range Interpretation Comments Glucose Lvl (test code = Glucose Lvl) 142 70-99 [facility] [employer] Alert2022-07-25 08:03:00 Test Item Value Reference Range Interpretation Comments BUN (test code = BUN) 21 06-10 [facility] [employer] [id number] 08:03:00 Test Item Value Reference Range Interpretation Comments Creatinine Lvl (test code = Creatinine 0.84 0.50-1.40 Lvl) [facility] [id number] 08:03:00 Test Item Value Reference Range Interpretation Comments Sodium Lvl (test code = Sodium Lvl) 133 135-145 [place] 480482-07-25 08:03:00 Test Item Value Reference Range Interpretation Comments Potassium Lvl (test code = Potassium 4.4 3.5-5.1 Lvl) [place] 480482-07-25 08:03:00 Test Item Value Reference Range Interpretation Comments Chloride Lvl (test code = Chloride Lvl) 98 95-109 [place] 480482-07-25 08:03:00 Test Item Value Reference Range Interpretation Comments CO2 (test code = CO2) 25 24-32 [place] 480482-07-25 08:03:00 Test Item Value Reference Range Interpretation Comments AGAP (test code = AGAP) 14.4 10.0-20.0 [place] 480482-07-25 08:03:00 Test Item Value Reference Range Interpretation Comments Calcium Lvl (test code = Calcium Lvl) 9.1 8.5-10.5 [place] 480482-07-25 08:03:00 Test Item Value Reference Range Interpretation Comments B/C Ratio (test code = B/C Ratio) 25 1 6-25 [place] 480482-07-25 08:03:00 Test Item Value Reference Range Interpretation Comments Total Protein (test code = Total 6.7 6.4-8.4 Protein) [place] 480482-07-25 08:03:00 Test Item Value Reference Range Interpretation Comments Albumin Lvl (test code = Albumin Lvl) 3.2 3.5-5.0 [place] 480482-07-25 08:03:00 Test Item Value Reference Range Interpretation Comments Globulin (test code = Globulin) 3.5 2.7-4.2 [place] 480482-07-25 08:03:00 Test Item Value Reference Range Interpretation Comments A/G Ratio (test code = A/G Ratio) 0.9 1 0.7-1.6 [place] 480482-07-25 08:03:00 Test Item Value Reference Range Interpretation Comments ALT (test code = ALT) 19 See_Comment [Auto mated message] The system which ge nerated this result transmit lavon reference range : <=65. The reference range was not used to interpr et this result as dionne l/abnormal. [facility] [id number] 08:03:00 Test Item Value Reference Range Interpretation Comments AST (test code = AST) 26 See_Comment [Auto mated message] The system which ge nerated this result transmit lavon reference range : <=37. The reference range was not used to interpr et this result as dionne l/abnormal. [facility] [id number] 08:03:00 Test Item Value Reference Range Interpretation Comments Alk Phos (test code = Alk Phos) 56 39-136 [facility] [id number] 08:03:00 Test Item Value Reference Range Interpretation Comments Bili Total (test code = Bili Total) 1.0 0.2-1.3 [facility] [id number] 08:03:00 Test Item Value Reference Range Interpretation Comments eGFR (test code = eGFR) 67 [facility] [id number] 08:03:00 Test Item Value Reference Range Interpretation Comments Magnesium Lvl (test code = Magnesium 1.9 1.8-2.4 Lvl) [facility] [id number] 08:03:00 Test Item Value Reference Range Interpretation Comments Procalcitonin Lvl (test no gt See_Comment [Au tomated message] code = Procalcitonin Lvl) Th e system which generated this result transmitted ref erence range: <=0.10. The reference range was not used to interpr et this result as normal/abnormal . [facility] [id number] 08:03:00 Test Item Value Reference Range Interpretation Comments LDH (test code = LDH) 354 98-192 [facility] HospitalUarmlkiZHUWUUWCVD9605-54-47 08:03:00 Test Item Value Reference Range Interpretation Comments WBC (test code = WBC) 7.5 3.7-10.4 [facility] HospitalDqfxwtxPALJROWTGU4454-52-53 08:03:00 Test Item Value Reference Range Interpretation Comments RBC (test code = RBC) 3.44 4.20-5.40 [facility] HospitalBhrfngbHQAVHMSJCE0546-06-98 08:03:00 Test Item Value Reference Range Interpretation Comments Hgb (test code = Hgb) 8.3 12.0-16.0 [facility] HospitalLaqpvneTULFUADVNA4746-80-24 08:03:00 Test Item Value Reference Range Interpretation Comments Hct (test code = Hct) 26.2 36.0-48.0 [place] 325412-07-25 08:03:00 Test Item Value Reference Range Interpretation Comments MCV (test code = MCV) 76.1 80.0-98.0 [place] 325412-07-25 08:03:00 Test Item Value Reference Range Interpretation Comments MCH (test code = MCH) 24.0 pg 27.0-31.0 [place] 325412-07-25 08:03:00 Test Item Value Reference Range Interpretation Comments MCHC (test code = MCHC) 31.6 32.0-36.0 [place] 325412-07-25 08:03:00 Test Item Value Reference Range Interpretation Comments RDW (test code = RDW) 20.9 11.5-14.5 [place] [address]-07-25 08:03:00 Test Item Value Reference Range Interpretation Comments Platelet (test code = Platelet) 289 133-450 [place] 325412-07-25 08:03:00 Test Item Value Reference Range Interpretation Comments MPV (test code = MPV) 7.5 7.4-10.4 [place] 325412-07-25 08:03:00 Test Item Value Reference Range Interpretation Comments Segs (test code = Segs) 94.0 45.0-75.0 [place] 325412-07-25 08:03:00 Test Item Value Reference Range Interpretation Comments Lymphocytes (test code = Lymphocytes) 4.3 20.0-40.0 [place] 325412-07-25 08:03:00 Test Item Value Reference Range Interpretation Comments Monocytes (test code = Monocytes) 1.6 2.0-12.0 [place] [address]-07-25 08:03:00 Test Item Value Reference Range Interpretation Comments Basophils (test code = 0.1 See_Comment [Aut omated message] The Basophils) system which ge nerated this result tra nsmitted reference range : <=1.0. The reference r hugo was not used to int erpret this result as normal/abnormal . [place] 325412-07-25 08:03:00 Test Item Value Reference Range Interpretation Comments Neutrophils # (test code = Neutrophils 7.0 1.5-8.1 #) [facility]E[id number] 08:03:00 Test Item Value Reference Range Interpretation Comments Lymphocytes # (test code = Lymphocytes 0.3 1.0-5.5 #) [facility]gwjvuyPECMSAZYHG7658-49-64 08:03:00 Test Item Value Reference Range Interpretation Comments Monocytes # (test code 0.1 See_Comment [Aut omated message] The = Monocytes #) system which generated this result tra nsmitted reference range : <=0.8. The reference r hugo was not used to int erpret this result as normal/abnormal . [facility] CenterAbbaczkTTKVOTCXIA0054-96-83 08:03:00 Test Item Value Reference Range Interpretation Comments Microcyte (test code = 1+ *ABN*(06/13/22 Microcyte) 3:03 AM) [facility] HospitalM[facility] Spex [id number] 08:03:00 Test Item Value Reference Range Interpretation Comments HS Troponin I 1 Hr (test code = HS 50 Troponin I 1 Hr) [facility] CenterACTV8 [id number] 08:03:00 Test Item Value Reference Range Interpretation Comments HS Troponin I 0 to 1 See Note 5(06/13/22 Hour Delta (test code = 3:03 AM) HS Troponin I 0 to 1 Hour Delta) [facility] CenterSiving Egil KvalebergYDPGP6939-36-91 08:03:00 Test Item Value Reference Range Interpretation Comments Glucose Lvl (test code = Glucose Lvl) 142 70-99 [facility] [id number] 08:03:00 Test Item Value Reference Range Interpretation Comments BUN (test code = BUN) 21 - [facility] Center[facility] Egil KvalebergQLYQW1065-77-92 08:03:00 Test Item Value Reference Range Interpretation Comments Creatinine Lvl (test code = Creatinine 0.84 0.50-1.40 Lvl) [facility] KvalebergEAFAT1265-43-26 08:03:00 Test Item Value Reference Range Interpretation Comments Sodium Lvl (test code = Sodium Lvl) 133 135-145 [facility] Egil KvalebergJBBXS2567-37-03 08:03:00 Test Item Value Reference Range Interpretation Comments Potassium Lvl (test code = Potassium 4.4 3.5-5.1 Lvl) [facility] KvalebergXAMNA8093-40-58 08:03:00 Test Item Value Reference Range Interpretation Comments Chloride Lvl (test code = Chloride Lvl) 98 95-109 [facility]2022-07-25 08:03:00 Test Item Value Reference Range Interpretation Comments CO2 (test code = CO2) 25 24-32 [place] 480482-07-25 08:03:00 Test Item Value Reference Range Interpretation Comments AGAP (test code = AGAP) 14.4 10.0-20.0 [place] 480482-07-25 08:03:00 Test Item Value Reference Range Interpretation Comments Calcium Lvl (test code = Calcium Lvl) 9.1 8.5-10.5 [place] 480482-07-25 08:03:00 Test Item Value Reference Range Interpretation Comments B/C Ratio (test code = B/C Ratio) 25 1 6-25 [place] 480482-07-25 08:03:00 Test Item Value Reference Range Interpretation Comments Total Protein (test code = Total 6.7 6.4-8.4 Protein) [place] 480482-07-25 08:03:00 Test Item Value Reference Range Interpretation Comments Albumin Lvl (test code = Albumin Lvl) 3.2 3.5-5.0 [place] 480482-07-25 08:03:00 Test Item Value Reference Range Interpretation Comments Globulin (test code = Globulin) 3.5 2.7-4.2 [facility] [id number] 08:03:00 Test Item Value Reference Range Interpretation Comments A/G Ratio (test code = A/G Ratio) 0.9 1 0.7-1.6 [place] 480482-07-25 08:03:00 Test Item Value Reference Range Interpretation Comments ALT (test code = ALT) 19 See_Comment [Auto mated message] The system which ge nerated this result transmit lavon reference range : <=65. The reference range was not used to interpr et this result as dionne l/abnormal. [facility] [id number] 08:03:00 Test Item Value Reference Range Interpretation Comments AST (test code = AST) 26 See_Comment [Auto mated message] The system which ge nerated this result transmit lavon reference range : <=37. The reference range was not used to interpr et this result as dionne l/abnormal. [place] 480482-07-25 08:03:00 Test Item Value Reference Range Interpretation Comments Alk Phos (test code = Alk Phos) 56 39-136 [place] 480482-07-25 08:03:00 Test Item Value Reference Range Interpretation Comments Bili Total (test code = Bili Total) 1.0 0.2-1.3 [place] 480482-07-25 08:03:00 Test Item Value Reference Range Interpretation Comments eGFR (test code = eGFR) 67 [place] 480482-07-25 08:03:00 Test Item Value Reference Range Interpretation Comments Magnesium Lvl (test code = Magnesium 1.9 1.8-2.4 Lvl) [place] 480482-07-25 08:03:00 Test Item Value Reference Range Interpretation Comments Procalcitonin Lvl (test no gt See_Comment [Au tomated message] code = Procalcitonin Lvl) e system which generated this result transmitted ref erence range: <=0.10. The reference range was not used to interpr et this result as normal/abnormal . [place] 480482-07-25 08:03:00 Test Item Value Reference Range Interpretation Comments LDH (test code = LDH) 354 98-192 [place] 325412-07-25 08:03:00 Test Item Value Reference Range Interpretation Comments WBC (test code = WBC) 7.5 3.7-10.4 [place] 325412-07-25 08:03:00 Test Item Value Reference Range Interpretation Comments RBC (test code = RBC) 3.44 4.20-5.40 [place] [address]-07-25 08:03:00 Test Item Value Reference Range Interpretation Comments Hgb (test code = Hgb) 8.3 12.0-16.0 [place] [address]-07-25 08:03:00 Test Item Value Reference Range Interpretation Comments Hct (test code = Hct) 26.2 36.0-48.0 [place] [address]-07-25 08:03:00 Test Item Value Reference Range Interpretation Comments MCV (test code = MCV) 76.1 80.0-98.0 [place] [address]-07-25 08:03:00 Test Item Value Reference Range Interpretation Comments MCH (test code = MCH) 24.0 pg 27.0-31.0 [facility] CampusNnmabhuIUZCWLVTZE8757-34-52 08:03:00 Test Item Value Reference Range Interpretation Comments MCHC (test code = MCHC) 31.6 32.0-36.0 [place] 325412-07-25 08:03:00 Test Item Value Reference Range Interpretation Comments RDW (test code = RDW) 20.9 11.5-14.5 [place] 325412-07-25 08:03:00 Test Item Value Reference Range Interpretation Comments Platelet (test code = Platelet) 289 133-450 [facility] CampusPfyxhlpOLRLDQXAKI4436-99-98 08:03:00 Test Item Value Reference Range Interpretation Comments MPV (test code = MPV) 7.5 7.4-10.4 [place] 325412-07-25 08:03:00 Test Item Value Reference Range Interpretation Comments Segs (test code = Segs) 94.0 45.0-75.0 [place] 325412-07-25 08:03:00 Test Item Value Reference Range Interpretation Comments Lymphocytes (test code = Lymphocytes) 4.3 20.0-40.0 [place] 325412-07-25 08:03:00 Test Item Value Reference Range Interpretation Comments Monocytes (test code = Monocytes) 1.6 2.0-12.0 [place] 325412-07-25 08:03:00 Test Item Value Reference Range Interpretation Comments Basophils (test code = 0.1 See_Comment [Aut omated message] The Basophils) system which ge nerated this result tra nsmitted reference range : <=1.0. The reference r hugo was not used to int erpret this result as normal/abnormal . [facility] CampusUkobufyVKKKBMGVJE0911-81-44 08:03:00 Test Item Value Reference Range Interpretation Comments Neutrophils # (test code = Neutrophils 7.0 1.5-8.1 #) [place] 325412-07-25 08:03:00 Test Item Value Reference Range Interpretation Comments Lymphocytes # (test code = Lymphocytes 0.3 1.0-5.5 #) [place] 325412-07-25 08:03:00 Test Item Value Reference Range Interpretation Comments Monocytes # (test code 0.1 See_Comment [Aut omated message] The = Monocytes #) system which generated this result tra nsmitted reference range : <=0.8. The reference r hugo was not used to int erpret this result as normal/abnormal . [facility]DkdpaxhZICGYKHQUG8743-51-61 08:03:00 Test Item Value Reference Range Interpretation Comments Microcyte (test code = 1+ *ABN*(06/13/22 Microcyte) 3:03 AM) [facility] [id number] 08:03:00 Test Item Value Reference Range Interpretation Comments HS Troponin I 1 Hr (test code = HS 50 Troponin I 1 Hr) [facility] [id number] 08:03:00 Test Item Value Reference Range Interpretation Comments HS Troponin I 0 to 1 See Note 5(06/13/22 Hour Delta (test code = 3:03 AM) HS Troponin I 0 to 1 Hour Delta) [facility] HospitalLiquidTalk [id number] 08:03:00 Test Item Value Reference Range Interpretation Comments Glucose Lvl (test code = Glucose Lvl) 142 70-99 [facility] [id number] 08:03:00 Test Item Value Reference Range Interpretation Comments BUN (test code = BUN) 21 7-22 [facility] [id number] 08:03:00 Test Item Value Reference Range Interpretation Comments Creatinine Lvl (test code = Creatinine 0.84 0.50-1.40 Lvl) [facility] [id number] 08:03:00 Test Item Value Reference Range Interpretation Comments Sodium Lvl (test code = Sodium Lvl) 133 135-145 [facility] [id number] 08:03:00 Test Item Value Reference Range Interpretation Comments Potassium Lvl (test code = Potassium 4.4 3.5-5.1 Lvl) [facility] [id number] 08:03:00 Test Item Value Reference Range Interpretation Comments Chloride Lvl (test code = Chloride Lvl) 98 95-109 [facility] HospitalLiquid[facility] [id number] 08:03:00 Test Item Value Reference Range Interpretation Comments CO2 (test code = CO2) 25 24-32 [facility] HospitalL[facility] [id number] 08:03:00 Test Item Value Reference Range Interpretation Comments AGAP (test code = AGAP) 14.4 10.0-20.0 [facility] [employer] [id number] 08:03:00 Test Item Value Reference Range Interpretation Comments Calcium Lvl (test code = Calcium Lvl) 9.1 8.5-10.5 [facility] [id number] 08:03:00 Test Item Value Reference Range Interpretation Comments B/C Ratio (test code = B/C Ratio) 25 1 6-25 [facility] [employer] [id number] 08:03:00 Test Item Value Reference Range Interpretation Comments Total Protein (test code = Total 6.7 6.4-8.4 Protein) [facility] [employer] [id number] 08:03:00 Test Item Value Reference Range Interpretation Comments Albumin Lvl (test code = Albumin Lvl) 3.2 3.5-5.0 [facility] [employer] [id number] 08:03:00 Test Item Value Reference Range Interpretation Comments Globulin (test code = Globulin) 3.5 2.7-4.2 [facility] [employer] [id number] 08:03:00 Test Item Value Reference Range Interpretation Comments A/G Ratio (test code = A/G Ratio) 0.9 1 0.7-1.6 [facility] [employer] [id number] 08:03:00 Test Item Value Reference Range Interpretation Comments ALT (test code = ALT) 19 See_Comment [Auto mated message] The system which ge nerated this result transmit lavon reference range : <=65. The reference range was not used to interpr et this result as dionne l/abnormal. [facility] [employer] [id number] 08:03:00 Test Item Value Reference Range Interpretation Comments AST (test code = AST) 26 See_Comment [Auto mated message] The system which ge nerated this result transmit lavon reference range : <=37. The reference range was not used to interpr et this result as dionne l/abnormal. [facility] [employer] [id number] 08:03:00 Test Item Value Reference Range Interpretation Comments Alk Phos (test code = Alk Phos) 56 39-136 [facility] [employer] [id number] 08:03:00 Test Item Value Reference Range Interpretation Comments Bili Total (test code = Bili Total) 1.0 0.2-1.3 [place] 480482-07-25 08:03:00 Test Item Value Reference Range Interpretation Comments eGFR (test code = eGFR) 67 [place] 480482-07-25 08:03:00 Test Item Value Reference Range Interpretation Comments Magnesium Lvl (test code = Magnesium 1.9 1.8-2.4 Lvl) [place] 480482-07-25 08:03:00 Test Item Value Reference Range Interpretation Comments Procalcitonin Lvl (test no gt See_Comment [Au tomated message] code = Procalcitonin Lvl) e system which generated this result transmitted ref erence range: <=0.10. The reference range was not used to interpr et this result as normal/abnormal . [place] 480482-07-25 08:03:00 Test Item Value Reference Range Interpretation Comments LDH (test code = LDH) 354 98-192 [place] 325412-07-25 08:03:00 Test Item Value Reference Range Interpretation Comments WBC (test code = WBC) 7.5 3.7-10.4 [place] 325412-07-25 08:03:00 Test Item Value Reference Range Interpretation Comments RBC (test code = RBC) 3.44 4.20-5.40 [place] [address]-07-25 08:03:00 Test Item Value Reference Range Interpretation Comments Hgb (test code = Hgb) 8.3 12.0-16.0 [place] [address]-07-25 08:03:00 Test Item Value Reference Range Interpretation Comments Hct (test code = Hct) 26.2 36.0-48.0 [place] [address]-07-25 08:03:00 Test Item Value Reference Range Interpretation Comments MCV (test code = MCV) 76.1 80.0-98.0 [place] [address]-07-25 08:03:00 Test Item Value Reference Range Interpretation Comments MCH (test code = MCH) 24.0 pg 27.0-31.0 [place] [address]-07-25 08:03:00 Test Item Value Reference Range Interpretation Comments MCHC (test code = MCHC) 31.6 32.0-36.0 [place] [address]-07-25 08:03:00 Test Item Value Reference Range Interpretation Comments RDW (test code = RDW) 20.9 11.5-14.5 [place] 325412-07-25 08:03:00 Test Item Value Reference Range Interpretation Comments Platelet (test code = Platelet) 289 133-450 [place] 325412-07-25 08:03:00 Test Item Value Reference Range Interpretation Comments MPV (test code = MPV) 7.5 7.4-10.4 [place] 325412-07-25 08:03:00 Test Item Value Reference Range Interpretation Comments Segs (test code = Segs) 94.0 45.0-75.0 [place] [address]-07-25 08:03:00 Test Item Value Reference Range Interpretation Comments Lymphocytes (test code = Lymphocytes) 4.3 20.0-40.0 [place] [address]-07-25 08:03:00 Test Item Value Reference Range Interpretation Comments Monocytes (test code = Monocytes) 1.6 2.0-12.0 [place] [address]-07-25 08:03:00 Test Item Value Reference Range Interpretation Comments Basophils (test code = 0.1 See_Comment [Aut omated message] The Basophils) system which ge nerated this result tra nsmitted reference range : <=1.0. The reference r hugo was not used to int erpret this result as normal/abnormal . [place] 325412-07-25 08:03:00 Test Item Value Reference Range Interpretation Comments Neutrophils # (test code = Neutrophils 7.0 1.5-8.1 #) [place] 325412-07-25 08:03:00 Test Item Value Reference Range Interpretation Comments Lymphocytes # (test code = Lymphocytes 0.3 1.0-5.5 #) [place] [address]-07-25 08:03:00 Test Item Value Reference Range Interpretation Comments Monocytes # (test code 0.1 See_Comment [Aut omated message] The = Monocytes #) system which generated this result tra nsmitted reference range : <=0.8. The reference r hugo was not used to int erpret this result as normal/abnormal . [place] 325412-07-25 08:03:00 Test Item Value Reference Range Interpretation Comments Microcyte (test code = 1+ *ABN*(06/13/22 Microcyte) 3:03 AM) [facility] [employer] [id number] 08:03:00 Test Item Value Reference Range Interpretation Comments HS Troponin I 1 Hr (test code = HS 50 Troponin I 1 Hr) [facility] [employer] [id number] 08:03:00 Test Item Value Reference Range Interpretation Comments HS Troponin I 0 to 1 See Note 5(06/13/22 Hour Delta (test code = 3:03 AM) HS Troponin I 0 to 1 Hour Delta) [facility] [employer] [id number] 08:03:00 Test Item Value Reference Range Interpretation Comments Glucose Lvl (test code = Glucose Lvl) 142 70-99 [facility] [employer] [id number] 08:03:00 Test Item Value Reference Range Interpretation Comments BUN (test code = BUN) 21 - [facility] [employer] [id number] 08:03:00 Test Item Value Reference Range Interpretation Comments Creatinine Lvl (test code = Creatinine 0.84 0.50-1.40 Lvl) [facility] [employer] [id number] 08:03:00 Test Item Value Reference Range Interpretation Comments Sodium Lvl (test code = Sodium Lvl) 133 135-145 [facility] [employer] [id number] 08:03:00 Test Item Value Reference Range Interpretation Comments Potassium Lvl (test code = Potassium 4.4 3.5-5.1 Lvl) [facility] [employer] [id number] 08:03:00 Test Item Value Reference Range Interpretation Comments Chloride Lvl (test code = Chloride Lvl) 98 95-109 [facility] [employer] [id number] 08:03:00 Test Item Value Reference Range Interpretation Comments CO2 (test code = CO2) 25 24-32 [facility] [employer] [id number] 08:03:00 Test Item Value Reference Range Interpretation Comments AGAP (test code = AGAP) 14.4 10.0-20.0 [facility] [employer]2022-07-25 08:03:00 Test Item Value Reference Range Interpretation Comments Calcium Lvl (test code = Calcium Lvl) 9.1 8.5-10.5 [facility] [employer] [id number] 08:03:00 Test Item Value Reference Range Interpretation Comments B/C Ratio (test code = B/C Ratio) 25 1 6-25 [facility] [id number] 08:03:00 Test Item Value Reference Range Interpretation Comments Total Protein (test code = Total 6.7 6.4-8.4 Protein) [facility] [id number] 08:03:00 Test Item Value Reference Range Interpretation Comments Albumin Lvl (test code = Albumin Lvl) 3.2 3.5-5.0 [facility] [id number] 08:03:00 Test Item Value Reference Range Interpretation Comments Globulin (test code = Globulin) 3.5 2.7-4.2 [facility] [id number] 08:03:00 Test Item Value Reference Range Interpretation Comments A/G Ratio (test code = A/G Ratio) 0.9 1 0.7-1.6 [facility] [id number] 08:03:00 Test Item Value Reference Range Interpretation Comments ALT (test code = ALT) 19 See_Comment [Auto mated message] The system which ge nerated this result transmit lavon reference range : <=65. The reference range was not used to interpr et this result as dionne l/abnormal. [facility] [employer] [id number] 08:03:00 Test Item Value Reference Range Interpretation Comments AST (test code = AST) 26 See_Comment [Auto mated message] The system which ge nerated this result transmit lavon reference range : <=37. The reference range was not used to interpr et this result as dionen l/abnormal. [facility] [employer] [id number] 08:03:00 Test Item Value Reference Range Interpretation Comments Alk Phos (test code = Alk Phos) 56 39-136 [facility] [employer] [id number] 08:03:00 Test Item Value Reference Range Interpretation Comments Bili Total (test code = Bili Total) 1.0 0.2-1.3 [facility] [id number] 08:03:00 Test Item Value Reference Range Interpretation Comments eGFR (test code = eGFR) 67 [facility] [id number] 08:03:00 Test Item Value Reference Range Interpretation Comments Magnesium Lvl (test code = Magnesium 1.9 1.8-2.4 Lvl) [id number] 08:03:00 Test Item Value Reference Range Interpretation Comments Procalcitonin Lvl (test no gt See_Comment [Au tomated message] code = Procalcitonin Lvl) Th e system which generated this result transmitted ref erence range: <=0.10. The reference range was not used to interpr et this result as normal/abnormal . [facility] [id number] 08:03:00 Test Item Value Reference Range Interpretation Comments LDH (test code = LDH) 354 98-192 [facility] C[id number] 08:03:00 Test Item Value Reference Range Interpretation Comments WBC (test code = WBC) 7.5 3.7-10.4 [facility] [id number] 08:03:00 Test Item Value Reference Range Interpretation Comments RBC (test code = RBC) 3.44 4.20-5.40 [facility] [id number] 08:03:00 Test Item Value Reference Range Interpretation Comments Hgb (test code = Hgb) 8.3 12.0-16.0 [facility] CampusXzscapgNULWYGZYXC8265-68-02 08:03:00 Test Item Value Reference Range Interpretation Comments Hct (test code = Hct) 26.2 36.0-48.0 [facility] CampusMfqjhdgABZDKMFJNY6290-28-70 08:03:00 Test Item Value Reference Range Interpretation Comments MCV (test code = MCV) 76.1 80.0-98.0 [facility] CampusMzwkekqIWMJVFZUAM2766-37-26 08:03:00 Test Item Value Reference Range Interpretation Comments MCH (test code = MCH) 24.0 pg 27.0-31.0 [facility] CampusAjyretuJUQGWYDKVI0881-57-95 08:03:00 Test Item Value Reference Range Interpretation Comments MCHC (test code = MCHC) 31.6 32.0-36.0 [facility] CampusRolttlpOCCMUZYQFE8275-71-19 08:03:00 Test Item Value Reference Range Interpretation Comments RDW (test code = RDW) 20.9 11.5-14.5 [facility] CampusPgyhyvgQDWRRKZUFJ4426-03-77 08:03:00 Test Item Value Reference Range Interpretation Comments Platelet (test code = Platelet) 289 133-450 [facility] CampusJqqshlbQEBQABCYVK7775-89-97 08:03:00 Test Item Value Reference Range Interpretation Comments MPV (test code = MPV) 7.5 7.4-10.4 [facility] CampusZyaouhxYALFATLRIY5371-42-85 08:03:00 Test Item Value Reference Range Interpretation Comments Segs (test code = Segs) 94.0 45.0-75.0 [facility] CampusBxhcsaxLYBUMOOVII6416-21-64 08:03:00 Test Item Value Reference Range Interpretation Comments Lymphocytes (test code = Lymphocytes) 4.3 20.0-40.0 [facility] CampusImqvhyaEDHJKZJNGH8306-40-19 08:03:00 Test Item Value Reference Range Interpretation Comments Monocytes (test code = Monocytes) 1.6 2.0-12.0 [facility] CampusXnuastqDIYOPPREZI5883-21-59 08:03:00 Test Item Value Reference Range Interpretation Comments Basophils (test code = 0.1 See_Comment [Aut omated message] The Basophils) system which ge nerated this result tra nsmitted reference range : <=1.0. The reference r hugo was not used to int erpret this result as normal/abnormal . [facility] CampusZszcpurMIKZJUVZJZ4057-28-99 08:03:00 Test Item Value Reference Range Interpretation Comments Neutrophils # (test code = Neutrophils 7.0 1.5-8.1 #) [facility] CampusZnbjnkaITKNQVAVMS1558-91-63 08:03:00 Test Item Value Reference Range Interpretation Comments Lymphocytes # (test code = Lymphocytes 0.3 1.0-5.5 #) [facility] CampusKotqgawWVPVCLLHBK6201-32-88 08:03:00 Test Item Value Reference Range Interpretation Comments Monocytes # (test code 0.1 See_Comment [Aut omated message] The = Monocytes #) system which generated this result tra nsmitted reference range : <=0.8. The reference r hugo was not used to int erpret this result as normal/abnormal . [facility]GgrpzzbTMOQOWLTQR4392-62-95 08:03:00 Test Item Value Reference Range Interpretation Comments Microcyte (test code = 1+ *ABN*(06/13/22 Microcyte) 3:03 AM) [facility] [id number] 08:03:00 Test Item Value Reference Range Interpretation Comments HS Troponin I 1 Hr (test code = HS 50 Troponin I 1 Hr) [facility] [id number] 08:03:00 Test Item Value Reference Range Interpretation Comments HS Troponin I 0 to 1 See Note 5(06/13/22 Hour Delta (test code = 3:03 AM) HS Troponin I 0 to 1 Hour Delta) [place] 480482-07-25 08:03:00 Test Item Value Reference Range Interpretation Comments Glucose Lvl (test code = Glucose Lvl) 142 70-99 [place] 480482-07-25 08:03:00 Test Item Value Reference Range Interpretation Comments BUN (test code = BUN) 21 06-10 [place] 480482-07-25 08:03:00 Test Item Value Reference Range Interpretation Comments Creatinine Lvl (test code = Creatinine 0.84 0.50-1.40 Lvl) [place] 480482-07-25 08:03:00 Test Item Value Reference Range Interpretation Comments Sodium Lvl (test code = Sodium Lvl) 133 135-145 [place] 480482-07-25 08:03:00 Test Item Value Reference Range Interpretation Comments Potassium Lvl (test code = Potassium 4.4 3.5-5.1 Lvl) [facility]2022-07-25 08:03:00 Test Item Value Reference Range Interpretation Comments Chloride Lvl (test code = Chloride Lvl) 98 95-109 [place] 480482-07-25 08:03:00 Test Item Value Reference Range Interpretation Comments CO2 (test code = CO2) 25 24-32 [place] 480482-07-25 08:03:00 Test Item Value Reference Range Interpretation Comments AGAP (test code = AGAP) 14.4 10.0-20.0 [place] 480482-07-25 08:03:00 Test Item Value Reference Range Interpretation Comments Calcium Lvl (test code = Calcium Lvl) 9.1 8.5-10.5 [place] 480482-07-25 08:03:00 Test Item Value Reference Range Interpretation Comments B/C Ratio (test code = B/C Ratio) 25 1 6-25 [place] 480482-07-25 08:03:00 Test Item Value Reference Range Interpretation Comments Total Protein (test code = Total 6.7 6.4-8.4 Protein) [place] 480482-07-25 08:03:00 Test Item Value Reference Range Interpretation Comments Albumin Lvl (test code = Albumin Lvl) 3.2 3.5-5.0 [facility] [employer] [id number] 08:03:00 Test Item Value Reference Range Interpretation Comments Globulin (test code = Globulin) 3.5 2.7-4.2 [facility] [id number] 08:03:00 Test Item Value Reference Range Interpretation Comments A/G Ratio (test code = A/G Ratio) 0.9 1 0.7-1.6 [facility] [id number] 08:03:00 Test Item Value Reference Range Interpretation Comments ALT (test code = ALT) 19 See_Comment [Auto mated message] The system which ge nerated this result transmit lavon reference range : <=65. The reference range was not used to interpr et this result as dionne l/abnormal. [facility] [id number] 08:03:00 Test Item Value Reference Range Interpretation Comments AST (test code = AST) 26 See_Comment [Auto mated message] The system which ge nerated this result transmit lavon reference range : <=37. The reference range was not used to interpr et this result as dionne l/abnormal. [facility] [employer] [id number] 08:03:00 Test Item Value Reference Range Interpretation Comments Alk Phos (test code = Alk Phos) 56 39-136 [facility] [employer] [id number] 08:03:00 Test Item Value Reference Range Interpretation Comments Bili Total (test code = Bili Total) 1.0 0.2-1.3 [facility] [employer] [id number] 08:03:00 Test Item Value Reference Range Interpretation Comments eGFR (test code = eGFR) 67 [facility] [id number] 08:03:00 Test Item Value Reference Range Interpretation Comments Magnesium Lvl (test code = Magnesium 1.9 1.8-2.4 Lvl) [facility] [id number] 08:03:00 Test Item Value Reference Range Interpretation Comments Procalcitonin Lvl (test no gt See_Comment [Au tomated message] code = Procalcitonin Lvl) Th e system which generated this result transmitted ref erence range: <=0.10. The reference range was not used to interpr et this result as normal/abnormal . [facility]2022-07-25 08:03:00 Test Item Value Reference Range Interpretation Comments LDH (test code = LDH) 354 98-192 [facility] CampusLqwtkwqPMBLZZBVQS8401-34-04 08:03:00 Test Item Value Reference Range Interpretation Comments WBC (test code = WBC) 7.5 3.7-10.4 [facility] CampusAmiwykrURZZBPWUAH1990-68-60 08:03:00 Test Item Value Reference Range Interpretation Comments RBC (test code = RBC) 3.44 4.20-5.40 [facility] CampusRzvadypVRWRFJJLPF9560-71-35 08:03:00 Test Item Value Reference Range Interpretation Comments Hgb (test code = Hgb) 8.3 12.0-16.0 [facility] CampusZmzejdqQAOPCIBJFU9334-46-11 08:03:00 Test Item Value Reference Range Interpretation Comments Hct (test code = Hct) 26.2 36.0-48.0 [facility] CampusSfosfznXGDWJSFMFA5587-23-83 08:03:00 Test Item Value Reference Range Interpretation Comments MCV (test code = MCV) 76.1 80.0-98.0 [facility] CampusRrnoexuDDEDMLDWPN0745-13-41 08:03:00 Test Item Value Reference Range Interpretation Comments MCH (test code = MCH) 24.0 pg 27.0-31.0 [facility] CampusOzhdtacYWHBPJITZF5467-86-76 08:03:00 Test Item Value Reference Range Interpretation Comments MCHC (test code = MCHC) 31.6 32.0-36.0 [facility] CampusCtewrriQUTQJKXYSN7150-15-96 08:03:00 Test Item Value Reference Range Interpretation Comments RDW (test code = RDW) 20.9 11.5-14.5 [facility] CampusVkywkapHVDVMJJVMG3236-00-01 08:03:00 Test Item Value Reference Range Interpretation Comments Platelet (test code = Platelet) 289 133-450 [facility] CampusFlgkqslLQVZCGHUPB0022-01-93 08:03:00 Test Item Value Reference Range Interpretation Comments MPV (test code = MPV) 7.5 7.4-10.4 [facility] CampusWkfrfnkSCRGPFCYZA2233-41-45 08:03:00 Test Item Value Reference Range Interpretation Comments Segs (test code = Segs) 94.0 45.0-75.0 [facility] CampusFyadhfxHQZHJPRPVP2827-45-15 08:03:00 Test Item Value Reference Range Interpretation Comments Lymphocytes (test code = Lymphocytes) 4.3 20.0-40.0 [facility] CampusLchxhhqKTECBAKJFM5715-96-34 08:03:00 Test Item Value Reference Range Interpretation Comments Monocytes (test code = Monocytes) 1.6 2.0-12.0 [facility] CampusZebweblZCOPNLUBYY5198-00-22 08:03:00 Test Item Value Reference Range Interpretation Comments Basophils (test code = 0.1 See_Comment [Aut omated message] The Basophils) system which ge nerated this result tra nsmitted reference range : <=1.0. The reference r hugo was not used to int erpret this result as normal/abnormal . [facility] CampusEepezkmEMIMFYQSGC1900-88-92 08:03:00 Test Item Value Reference Range Interpretation Comments Neutrophils # (test code = Neutrophils 7.0 1.5-8.1 #) [facility] CampusHctzbmfPHICGTBASS8160-22-58 08:03:00 Test Item Value Reference Range Interpretation Comments Lymphocytes # (test code = Lymphocytes 0.3 1.0-5.5 #) [place] 325412-07-25 08:03:00 Test Item Value Reference Range Interpretation Comments Monocytes # (test code 0.1 See_Comment [Aut omated message] The = Monocytes #) system which generated this result tra nsmitted reference range : <=0.8. The reference r hugo was not used to int erpret this result as normal/abnormal . [facility] CampusAetdlwoLOXLHVWOCW3585-31-53 08:03:00 Test Item Value Reference Range Interpretation Comments Microcyte (test code = 1+ *ABN*(06/13/22 Microcyte) 3:03 AM) [facility] [id number] 07:27:00 Test Item Value Reference Range Interpretation Comments HS Troponin I Baseline (test code = HS 46 Troponin I Baseline) [facility] [id number] 07:27:00 Test Item Value Reference Range Interpretation Comments HS Troponin I Baseline (test code = HS 46 Troponin I Baseline) [facility] [id number] 07:27:00 Test Item Value Reference Range Interpretation Comments HS Troponin I Baseline (test code = HS 46 Troponin I Baseline) [facility] [id number] 07:27:00 Test Item Value Reference Range Interpretation Comments HS Troponin I Baseline (test code = HS 46 Troponin I Baseline) [facility] [id number] 07:27:00 Test Item Value Reference Range Interpretation Comments HS Troponin I Baseline (test code = HS 46 Troponin I Baseline) [facility] [id number] 07:27:00 Test Item Value Reference Range Interpretation Comments HS Troponin I Baseline (test code = HS 46 Troponin I Baseline) [facility] [id number] 07:27:00 Test Item Value Reference Range Interpretation Comments HS Troponin I Baseline (test code = HS 46 Troponin I Baseline) [facility] [id number] 07:27:00 Test Item Value Reference Range Interpretation Comments HS Troponin I Baseline (test code = HS 46 Troponin I Baseline) [facility] [id number] 07:27:00 Test Item Value Reference Range Interpretation Comments HS Troponin I Baseline (test code = HS 46 Troponin I Baseline) [facility] [id number] 07:27:00 Test Item Value Reference Range Interpretation Comments HS Troponin I Baseline (test code = HS 46 Troponin I Baseline) [facility] [id number] 07:27:00 Test Item Value Reference Range Interpretation Comments HS Troponin I Baseline (test code = HS 46 Troponin I Baseline) [facility] [id number] 07:27:00 Test Item Value Reference Range Interpretation Comments HS Troponin I Baseline (test code = HS 46 Troponin I Baseline) [facility] [id number] 07:27:00 Test Item Value Reference Range Interpretation Comments HS Troponin I Baseline (test code = HS 46 Troponin I Baseline) [facility] [id number] 07:27:00 Test Item Value Reference Range Interpretation Comments HS Troponin I Baseline (test code = HS 46 Troponin I Baseline) [facility] [id number] 07:27:00 Test Item Value Reference Range Interpretation Comments HS Troponin I Baseline (test code = HS 46 Troponin I Baseline) [facility] [id number] 07:27:00 Test Item Value Reference Range Interpretation Comments HS Troponin I Baseline (test code = HS 46 Troponin I Baseline) [facility] [id number] 07:27:00 Test Item Value Reference Range Interpretation Comments HS Troponin I Baseline (test code = HS 46 Troponin I Baseline) [facility] [id number] 07:27:00 Test Item Value Reference Range Interpretation Comments HS Troponin I Baseline (test code = HS 46 Troponin I Baseline) [facility] [id number] 07:27:00 Test Item Value Reference Range Interpretation Comments HS Troponin I Baseline (test code = HS 46 Troponin I Baseline) [facility] [id number] 07:27:00 Test Item Value Reference Range Interpretation Comments HS Troponin I Baseline (test code = HS 46 Troponin I Baseline) [facility] [id number] 07:27:00 Test Item Value Reference Range Interpretation Comments HS Troponin I Baseline (test code = HS 46 Troponin I Baseline) [facility] [id number] 07:27:00 Test Item Value Reference Range Interpretation Comments HS Troponin I Baseline (test code = HS 46 Troponin I Baseline) [facility] [id number] 07:27:00 Test Item Value Reference Range Interpretation Comments HS Troponin I Baseline (test code = HS 46 Troponin I Baseline) [facility] [id number] 07:27:00 Test Item Value Reference Range Interpretation Comments HS Troponin I Baseline (test code = HS 46 Troponin I Baseline) [facility] [id number] 07:27:00 Test Item Value Reference Range Interpretation Comments HS Troponin I Baseline (test code = HS 46 Troponin I Baseline) [facility] [id number] 07:27:00 Test Item Value Reference Range Interpretation Comments HS Troponin I Baseline (test code = HS 46 Troponin I Baseline) [facility] [id number] 07:27:00 Test Item Value Reference Range Interpretation Comments HS Troponin I Baseline (test code = HS 46 Troponin I Baseline) [facility] [id number] 07:27:00 Test Item Value Reference Range Interpretation Comments HS Troponin I Baseline (test code = HS 46 Troponin I Baseline) [facility] [id number] 07:27:00 Test Item Value Reference Range Interpretation Comments HS Troponin I Baseline (test code = HS 46 Troponin I Baseline) [facility] [id number] 07:27:00 Test Item Value Reference Range Interpretation Comments HS Troponin I Baseline (test code = HS 46 Troponin I Baseline) [facility] [id number] 07:27:00 Test Item Value Reference Range Interpretation Comments HS Troponin I Baseline (test code = HS 46 Troponin I Baseline) [facility] [id number] 07:27:00 Test Item Value Reference Range Interpretation Comments HS Troponin I Baseline (test code = HS 46 Troponin I Baseline) [facility] [id number] 07:27:00 Test Item Value Reference Range Interpretation Comments HS Troponin I Baseline (test code = HS 46 Troponin I Baseline) [facility] [id number] 07:27:00 Test Item Value Reference Range Interpretation Comments HS Troponin I Baseline (test code = HS 46 Troponin I Baseline) [facility] [id number] 07:27:00 Test Item Value Reference Range Interpretation Comments HS Troponin I Baseline (test code = HS 46 Troponin I Baseline) [facility] [id number] 07:27:00 Test Item Value Reference Range Interpretation Comments HS Troponin I Baseline (test code = HS 46 Troponin I Baseline) [facility] [id number] 07:27:00 Test Item Value Reference Range Interpretation Comments HS Troponin I Baseline (test code = HS 46 Troponin I Baseline) [facility] [id number] 07:27:00 Test Item Value Reference Range Interpretation Comments HS Troponin I Baseline (test code = HS 46 Troponin I Baseline) [facility] [id number] 07:27:00 Test Item Value Reference Range Interpretation Comments HS Troponin I Baseline (test code = HS 46 Troponin I Baseline) [facility] [id number] 07:27:00 Test Item Value Reference Range Interpretation Comments HS Troponin I Baseline (test code = HS 46 Troponin I Baseline) [facility] [id number] 07:27:00 Test Item Value Reference Range Interpretation Comments HS Troponin I Baseline (test code = HS 46 Troponin I Baseline) [facility] [id number] 07:27:00 Test Item Value Reference Range Interpretation Comments HS Troponin I Baseline (test code = HS 46 Troponin I Baseline) [facility] [id number] 07:27:00 Test Item Value Reference Range Interpretation Comments HS Troponin I Baseline (test code = HS 46 Troponin I Baseline) [facility] [id number] 07:27:00 Test Item Value Reference Range Interpretation Comments HS Troponin I Baseline (test code = HS 46 Troponin I Baseline) [facility] [id number] 07:27:00 Test Item Value Reference Range Interpretation Comments HS Troponin I Baseline (test code = HS 46 Troponin I Baseline) [facility] [id number] 07:27:00 Test Item Value Reference Range Interpretation Comments HS Troponin I Baseline (test code = HS 46 Troponin I Baseline) [facility] HermannCARDIAC [id number] 07:27:00 Test Item Value Reference Range Interpretation Comments HS Troponin I Baseline (test code = HS 46 Troponin I Baseline) [facility] [id number] 07:27:00 Test Item Value Reference Range Interpretation Comments HS Troponin I Baseline (test code = HS 46 Troponin I Baseline) [facility] [id number] 07:27:00 Test Item Value Reference Range Interpretation Comments HS Troponin I Baseline (test code = HS 46 Troponin I Baseline) [facility] [id number] 07:27:00 Test Item Value Reference Range Interpretation Comments HS Troponin I Baseline (test code = HS 46 Troponin I Baseline) [facility] [id number] 07:27:00 Test Item Value Reference Range Interpretation Comments HS Troponin I Baseline (test code = HS 46 Troponin I Baseline) [facility] [id number] 07:27:00 Test Item Value Reference Range Interpretation Comments HS Troponin I Baseline (test code = HS 46 Troponin I Baseline) [facility] [id number] 07:27:00 Test Item Value Reference Range Interpretation Comments HS Troponin I Baseline (test code = HS 46 Troponin I Baseline) [facility] [id number] 04:26:00 Test Item Value Reference Range Interpretation Comments HS Troponin I (test code = HS Troponin 46 I) [facility] [id number] 04:26:00 Test Item Value Reference Range Interpretation Comments BNP (test code = BNP) 851 [facility] CenterRvhuukzQWQLOFGZDO4040-58-73 04:26:00 Test Item Value Reference Range Interpretation Comments Coronavirus (COVID-19) Not Detected (06/12/22 DEJUAN (test code = 11:26 PM) Coronavirus (COVID-19) DEJUAN) [facility] [id number] 04:26:00 Test Item Value Reference Range Interpretation Comments HS Troponin I (test code = HS Troponin 46 I) [facility] CenterACTV[facility] [id number] 04:26:00 Test Item Value Reference Range Interpretation Comments BNP (test code = BNP) 851 [facility] HospitalXbqdmycRMJTQGKPDS5151-70-79 04:26:00 Test Item Value Reference Range Interpretation Comments Coronavirus (COVID-19) Not Detected (06/12/22 DEJUAN (test code = 11:26 PM) Coronavirus (COVID-19) DEJUAN) [facility] CenterACT[facility] [id number] 04:26:00 Test Item Value Reference Range Interpretation Comments HS Troponin I (test code = HS Troponin 46 I) [facility] 04:26:00 Test Item Value Reference Range Interpretation Comments BNP (test code = BNP) 851 [facility] CenterIcldmrvPEDRCOHNDD0591-87-66 04:26:00 Test Item Value Reference Range Interpretation Comments Coronavirus (COVID-19) Not Detected (06/12/22 DEJUAN (test code = 11:26 PM) Coronavirus (COVID-19) DEJUAN) [facility]ACT[facility] [id number] 04:26:00 Test Item Value Reference Range Interpretation Comments HS Troponin I (test code = HS Troponin 46 I) [facility] 04:26:00 Test Item Value Reference Range Interpretation Comments BNP (test code = BNP) 851 [facility] CenterPozidmjVSGWAZRSTC2842-37-61 04:26:00 Test Item Value Reference Range Interpretation Comments Coronavirus (COVID-19) Not Detected (06/12/22 DEJUAN (test code = 11:26 PM) Coronavirus (COVID-19) DEJUAN) [facility]ACT[facility] [id number] 04:26:00 Test Item Value Reference Range Interpretation Comments HS Troponin I (test code = HS Troponin 46 I) [facility] 04:26:00 Test Item Value Reference Range Interpretation Comments BNP (test code = BNP) 851 [facility] CenterEvybjgmFMGZPGKROQ5199-93-20 04:26:00 Test Item Value Reference Range Interpretation Comments Coronavirus (COVID-19) Not Detected (06/12/22 DEJUAN (test code = 11:26 PM) Coronavirus (COVID-19) DEJUAN) [facility] [employer] [id number] 04:26:00 Test Item Value Reference Range Interpretation Comments HS Troponin I (test code = HS Troponin 46 I) [facility] [employer] SistemasannMister SpexAC [id number] 04:26:00 Test Item Value Reference Range Interpretation Comments BNP (test code = BNP) 851 [facility] CenterWmwjyklARFMBMTYSL9642-38-12 04:26:00 Test Item Value Reference Range Interpretation Comments Coronavirus (COVID-19) Not Detected (06/12/22 DEJUAN (test code = 11:26 PM) Coronavirus (COVID-19) DEJUAN) [facility] CenterGnodal [id number] 04:26:00 Test Item Value Reference Range Interpretation Comments HS Troponin I (test code = HS Troponin 46 I) [facility] CenterACTV8AC [id number] 04:26:00 Test Item Value Reference Range Interpretation Comments BNP (test code = BNP) 851 [facility] CenterMghmvcmIOQWYVECGI3180-93-05 04:26:00 Test Item Value Reference Range Interpretation Comments Coronavirus (COVID-19) Not Detected (06/12/22 DEJUAN (test code = 11:26 PM) Coronavirus (COVID-19) DEJUAN) [facility] [employer] [id number] 04:26:00 Test Item Value Reference Range Interpretation Comments HS Troponin I (test code = HS Troponin 46 I) [facility] CenterGn[facility] [id number] 04:26:00 Test Item Value Reference Range Interpretation Comments BNP (test code = BNP) 851 [facility] [id number] 04:26:00 Test Item Value Reference Range Interpretation Comments Coronavirus (COVID-19) Not Detected (06/12/22 DEJUAN (test code = 11:26 PM) Coronavirus (COVID-19) DEJUAN) [facility] CenterACTV8AC [id number] 04:26:00 Test Item Value Reference Range Interpretation Comments HS Troponin I (test code = HS Troponin 46 I) [facility] 04:26:00 Test Item Value Reference Range Interpretation Comments BNP (test code = BNP) 851 [facility] HospitalPkmawlgRJSDLDGRRP4205-40-01 04:26:00 Test Item Value Reference Range Interpretation Comments Coronavirus (COVID-19) Not Detected (06/12/22 DEJUAN (test code = 11:26 PM) Coronavirus (COVID-19) DEJUAN) [facility] 04:26:00 Test Item Value Reference Range Interpretation Comments HS Troponin I (test code = HS Troponin 46 I) [facility] CenterSookasaSPOTBY.COM [id number] 04:26:00 Test Item Value Reference Range Interpretation Comments BNP (test code = BNP) 85 [facility] HospitalYqgemruWZKAWKNTOK7215-09-66 04:26:00 Test Item Value Reference Range Interpretation Comments Coronavirus (COVID-19) Not Detected (06/12/22 DEJUAN (test code = 11:26 PM) Coronavirus (COVID-19) DEJUAN) [facility] 04:26:00 Test Item Value Reference Range Interpretation Comments HS Troponin I (test code = HS Troponin 46 I) [facility]20[facility] 04:26:00 Test Item Value Reference Range Interpretation Comments BNP (test code = BNP) [facility] [facility] H[id number] 04:26:00 Test Item Value Reference Range Interpretation Comments Coronavirus (COVID-19) Not Detected (06/12/22 DEJUAN (test code = 11:26 PM) Coronavirus (COVID-19) DEJUAN) [facility] 04:26:00 Test Item Value Reference Range Interpretation Comments HS Troponin I (test code = HS Troponin 46 I) [facility] 04:26:00 Test Item Value Reference Range Interpretation Comments BNP (test code = BNP) [facility] [facility] HospitalUggortpIEHYLSMJBY4314-84-64 04:26:00 Test Item Value Reference Range Interpretation Comments Coronavirus (COVID-19) Not Detected (06/12/22 DEJUAN (test code = 11:26 PM) Coronavirus (COVID-19) DEJUAN) [facility] CenterACTV8AC [id number] 04:26:00 Test Item Value Reference Range Interpretation Comments HS Troponin I (test code = HS Troponin 46 I) [facility] [id number] 04:26:00 Test Item Value Reference Range Interpretation Comments BNP (test code = BNP) [facility]JdehmkxJFXBUNVNYM9916-86-10 04:26:00 Test Item Value Reference Range Interpretation Comments Coronavirus (COVID-19) Not Detected (06/12/22 DEJUAN (test code = 11:26 PM) Coronavirus (COVID-19) DEJUAN) [facility] [id number] 04:26:00 Test Item Value Reference Range Interpretation Comments HS Troponin I (test code = HS Troponin 46 I) [facility] [id number] 04:26:00 Test Item Value Reference Range Interpretation Comments BNP (test code = BNP) [facility] Hospit[id number] 04:26:00 Test Item Value Reference Range Interpretation Comments Coronavirus (COVID-19) Not Detected (06/12/22 DEJUAN (test code = 11:26 PM) Coronavirus (COVID-19) DEJUAN) [facility] [id number] 04:26:00 Test Item Value Reference Range Interpretation Comments HS Troponin I (test code = HS Troponin 46 I) [facility] [id number] 04:26:00 Test Item Value Reference Range Interpretation Comments BNP (test code = BNP) [facility]51 [facility] HospitalCtzacdyWMWCGXYTVV7361-24-10 04:26:00 Test Item Value Reference Range Interpretation Comments Coronavirus (COVID-19) Not Detected (06/12/22 DEJUAN (test code = 11:26 PM) Coronavirus (COVID-19) DEJUAN) [facility] [id number] 04:26:00 Test Item Value Reference Range Interpretation Comments HS Troponin I (test code = HS Troponin 46 I) [facility] CenterSookasaEASTERN [facility] [id number] 04:26:00 Test Item Value Reference Range Interpretation Comments BNP (test code = BNP) [facility] HospitalAoucgyoMCVVLXJSRS6101-39-56 04:26:00 Test Item Value Reference Range Interpretation Comments Coronavirus (COVID-19) Not Detected (06/12/22 DEJUAN (test code = 11:26 PM) Coronavirus (COVID-19) DEJUAN) [facility]LoungeUpAC [id number] 04:26:00 Test Item Value Reference Range Interpretation Comments HS Troponin I (test code = HS Troponin 46 I) [facility]awAC [id number] 04:26:00 Test Item Value Reference Range Interpretation Comments BNP (test code = BNP) [facility]51 [facility] HospitalK[id number] 04:26:00 Test Item Value Reference Range Interpretation Comments Coronavirus (COVID-19) Not Detected (06/12/22 DEJUAN (test code = 11:26 PM) Coronavirus (COVID-19) DEJUAN) [facility] [id number] 04:26:00 Test Item Value Reference Range Interpretation Comments HS Troponin I (test code = HS Troponin 46 I) [facility] CenterSookasaAC [id number] 04:26:00 Test Item Value Reference Range Interpretation Comments BNP (test code = BNP) 85 [facility] HospitalBuxbaddLXWBGVCNEC1746-80-07 04:26:00 Test Item Value Reference Range Interpretation Comments Coronavirus (COVID-19) Not Detected (06/12/22 DEJUAN (test code = 11:26 PM) Coronavirus (COVID-19) DEJUAN) [facility] [id number] 04:26:00 Test Item Value Reference Range Interpretation Comments HS Troponin I (test code = HS Troponin 46 I) [facility]awLoungeUp [id number] 04:26:00 Test Item Value Reference Range Interpretation Comments BNP (test code = BNP) [address] [facility] HospitalHyfkqsxKUQMLAKQFB3668-71-45 04:26:00 Test Item Value Reference Range Interpretation Comments Coronavirus (COVID-19) Not Detected (06/12/22 DEJUAN (test code = 11:26 PM) Coronavirus (COVID-19) DEJUAN) [facility]awAC [id number] 04:26:00 Test Item Value Reference Range Interpretation Comments HS Troponin I (test code = HS Troponin 46 I) [facility] CenterIRIS.TVSAINT JOSEPH BEREASPOTBY.COM RNMSUIQ9549-86-87 04:26:00 Test Item Value Reference Range Interpretation Comments BNP (test code = BNP) [facility] HospitalCkirhizSSZDPPGRPR8140-18-42 04:26:00 Test Item Value Reference Range Interpretation Comments Coronavirus (COVID-19) Not Detected (06/12/22 DEJUAN (test code = 11:26 PM) Coronavirus (COVID-19) DEJUAN) [facility] CenterannMister SpexAC [id number] 04:26:00 Test Item Value Reference Range Interpretation Comments HS Troponin I (test code = HS Troponin 46 I) [facility] CenterSookasaDIAC [id number] 04:26:00 Test Item Value Reference Range Interpretation Comments BNP (test code = BNP) [address] [facility] HospitalQtkamvqEWVZSLHVPW5290-93-74 04:26:00 Test Item Value Reference Range Interpretation Comments Coronavirus (COVID-19) Not Detected (06/12/22 DEJUAN (test code = 11:26 PM) Coronavirus (COVID-19) DEJUAN) [facility] CenterACTV8AC [id number] 04:26:00 Test Item Value Reference Range Interpretation Comments HS Troponin I (test code = HS Troponin 46 I) [facility]20[facility]-25 04:26:00 Test Item Value Reference Range Interpretation Comments BNP (test code = BNP) 851 [facility] CenterWklhlxgPGVKJEBZMI0087-15-05 04:26:00 Test Item Value Reference Range Interpretation Comments Coronavirus (COVID-19) Not Detected (06/12/22 DEJUAN (test code = 11:26 PM) Coronavirus (COVID-19) DEJUAN) [facility] CenterACTV8 [id number] 04:26:00 Test Item Value Reference Range Interpretation Comments HS Troponin I (test code = HS Troponin 46 I) [facility]Jim[facility]2022-07-25 04:26:00 Test Item Value Reference Range Interpretation Comments BNP (test code = BNP) 851 [facility] CenterXvozrsfWMWSUBYPGP6713-97-21 04:26:00 Test Item Value Reference Range Interpretation Comments Coronavirus (COVID-19) Not Detected (06/12/22 DEJUAN (test code = 11:26 PM) Coronavirus (COVID-19) DEJUAN) [facility] CenterACTV8AC [id number] 04:26:00 Test Item Value Reference Range Interpretation Comments HS Troponin I (test code = HS Troponin 46 I) [facility] CenterGnodal [id number] 04:26:00 Test Item Value Reference Range Interpretation Comments BNP (test code = BNP) 851 [facility] CenterAbirvijMBYHIRXCED7335-52-86 04:26:00 Test Item Value Reference Range Interpretation Comments Coronavirus (COVID-19) Not Detected (06/12/22 DEJUAN (test code = 11:26 PM) Coronavirus (COVID-19) DEJUAN) [facility]20[facility] 04:26:00 Test Item Value Reference Range Interpretation Comments HS Troponin I (test code = HS Troponin 46 I) [facility]2022-[facility]-25 04:26:00 Test Item Value Reference Range Interpretation Comments BNP (test code = BNP) 851 [facility] CenterFhgfnthNZRNJOYYRD7589-47-99 04:26:00 Test Item Value Reference Range Interpretation Comments Coronavirus (COVID-19) Not Detected (06/12/22 DEJUAN (test code = 11:26 PM) Coronavirus (COVID-19) DEJUAN) [facility]20[facility] 04:26:00 Test Item Value Reference Range Interpretation Comments HS Troponin I (test code = HS Troponin 46 I) [facility]2022-[facility]-25 04:26:00 Test Item Value Reference Range Interpretation Comments BNP (test code = BNP) 851 [facility] CenterXlrcaqcCBZCVODHNX2470-97-53 04:26:00 Test Item Value Reference Range Interpretation Comments Coronavirus (COVID-19) Not Detected (06/12/22 DEJUAN (test code = 11:26 PM) Coronavirus (COVID-19) DEJUAN) [facility]-25 04:26:00 Test Item Value Reference Range Interpretation Comments HS Troponin I (test code = HS Troponin 46 I) [facility]2022-07-25 04:26:00 Test Item Value Reference Range Interpretation Comments BNP (test code = BNP) 851 [facility] CenterVffetfiDKZFKVRNLK2017-35-03 04:26:00 Test Item Value Reference Range Interpretation Comments Coronavirus (COVID-19) Not Detected (06/12/22 DEJUAN (test code = 11:26 PM) Coronavirus (COVID-19) DEJUAN) [facility]20[facility]-25 04:26:00 Test Item Value Reference Range Interpretation Comments HS Troponin I (test code = HS Troponin 46 I) [facility]2022-07-25 04:26:00 Test Item Value Reference Range Interpretation Comments BNP (test code = BNP) [facility] [facility] HospitalSxvopxuZJRVLJIRYG9005-42-15 04:26:00 Test Item Value Reference Range Interpretation Comments Coronavirus (COVID-19) Not Detected (06/12/22 DEJUAN (test code = 11:26 PM) Coronavirus (COVID-19) DEJUAN) [facility] CenterACTV8 [id number] 04:26:00 Test Item Value Reference Range Interpretation Comments HS Troponin I (test code = HS Troponin 46 I) [facility] CenterACTV8 [id number] 04:26:00 Test Item Value Reference Range Interpretation Comments BNP (test code = BNP) [facility] [facility] HospitalBknkyzsZBLSFVMIFC3072-53-25 04:26:00 Test Item Value Reference Range Interpretation Comments Coronavirus (COVID-19) Not Detected (06/12/22 DEJUAN (test code = 11:26 PM) Coronavirus (COVID-19) DEJUAN) [facility] CenterACTV8 [id number] 04:26:00 Test Item Value Reference Range Interpretation Comments HS Troponin I (test code = HS Troponin 46 I) [facility]Jim[facility]2022-[facility]-25 04:26:00 Test Item Value Reference Range Interpretation Comments BNP (test code = BNP) [facility] [facility] HospitalKmqvjzyZOWXIJPKUV4665-31-41 04:26:00 Test Item Value Reference Range Interpretation Comments Coronavirus (COVID-19) Not Detected (06/12/22 DEJUAN (test code = 11:26 PM) Coronavirus (COVID-19) DEJUAN) [facility] CenterACTV8 [id number] 04:26:00 Test Item Value Reference Range Interpretation Comments HS Troponin I (test code = HS Troponin 46 I) [facility]20[facility] 04:26:00 Test Item Value Reference Range Interpretation Comments BNP (test code = BNP) 851 [facility] CenterOzpipocSWWNUTCWJC0835-56-22 04:26:00 Test Item Value Reference Range Interpretation Comments Coronavirus (COVID-19) Not Detected (06/12/22 DEJUAN (test code = 11:26 PM) Coronavirus (COVID-19) DEJUAN) [facility]20[facility]-25 04:26:00 Test Item Value Reference Range Interpretation Comments HS Troponin I (test code = HS Troponin 46 I) [facility]2022-07-25 04:26:00 Test Item Value Reference Range Interpretation Comments BNP (test code = BNP) [facility]51 [facility] HospitalQekqazwFDBPSIFZTP6076-80-11 04:26:00 Test Item Value Reference Range Interpretation Comments Coronavirus (COVID-19) Not Detected (06/12/22 DEJUAN (test code = 11:26 PM) Coronavirus (COVID-19) DEJUAN) [facility] CenterACTV8AC [id number] 04:26:00 Test Item Value Reference Range Interpretation Comments HS Troponin I (test code = HS Troponin 46 I) [facility] [id number] 04:26:00 Test Item Value Reference Range Interpretation Comments BNP (test code = BNP) [address] [facility] HospitalWbmhrfyYSHNBHSSNI3429-37-15 04:26:00 Test Item Value Reference Range Interpretation Comments Coronavirus (COVID-19) Not Detected (06/12/22 DEJUAN (test code = 11:26 PM) Coronavirus (COVID-19) DEJUAN) [facility] CenterACTV8 [id number] 04:26:00 Test Item Value Reference Range Interpretation Comments HS Troponin I (test code = HS Troponin 46 I) [facility]20[facility]-25 04:26:00 Test Item Value Reference Range Interpretation Comments BNP (test code = BNP) 85 [facility] Hospit[id number] 04:26:00 Test Item Value Reference Range Interpretation Comments Coronavirus (COVID-19) Not Detected (06/12/22 DEJUAN (test code = 11:26 PM) Coronavirus (COVID-19) DEJUAN) [facility] HospitaliFitHSWSAAF1652-77-06 04:26:00 Test Item Value Reference Range Interpretation Comments HS Troponin I (test code = HS Troponin 46 I) [facility] CenterGnodal [id number] 04:26:00 Test Item Value Reference Range Interpretation Comments BNP (test code = BNP) 85 [facility] CenterSukqasdIZKGUVAPTC3931-19-34 04:26:00 Test Item Value Reference Range Interpretation Comments Coronavirus (COVID-19) Not Detected (06/12/22 DEJUAN (test code = 11:26 PM) Coronavirus (COVID-19) DEJUAN) [facility] 04:26:00 Test Item Value Reference Range Interpretation Comments HS Troponin I (test code = HS Troponin 46 I) [facility]2022-[facility]-25 04:26:00 Test Item Value Reference Range Interpretation Comments BNP (test code = BNP) [facility] [facility] HospitalKvsgwylMBBIHBKIQH4522-20-36 04:26:00 Test Item Value Reference Range Interpretation Comments Coronavirus (COVID-19) Not Detected (06/12/22 DEJUAN (test code = 11:26 PM) Coronavirus (COVID-19) DEJUAN) [facility] 04:26:00 Test Item Value Reference Range Interpretation Comments HS Troponin I (test code = HS Troponin 46 I) [facility] CenterGnodal [id number] 04:26:00 Test Item Value Reference Range Interpretation Comments BNP (test code = BNP) 85 [facility] HospitalUljtcimLGQZNBCHKW8581-01-53 04:26:00 Test Item Value Reference Range Interpretation Comments Coronavirus (COVID-19) Not Detected (06/12/22 DEJUAN (test code = 11:26 PM) Coronavirus (COVID-19) DEJUAN) [facility] 04:26:00 Test Item Value Reference Range Interpretation Comments HS Troponin I (test code = HS Troponin 46 I) [facility]-25 04:26:00 Test Item Value Reference Range Interpretation Comments BNP (test code = BNP) [facility] [facility] HospitalEdabxcnXYAYMMBALV0150-23-09 04:26:00 Test Item Value Reference Range Interpretation Comments Coronavirus (COVID-19) Not Detected (06/12/22 DEJUAN (test code = 11:26 PM) Coronavirus (COVID-19) DEJUAN) [facility] 04:26:00 Test Item Value Reference Range Interpretation Comments HS Troponin I (test code = HS Troponin 46 I) [facility]-25 04:26:00 Test Item Value Reference Range Interpretation Comments BNP (test code = BNP) 85 [facility] HospitalWyfskriVFQMSJZRKK8925-80-09 04:26:00 Test Item Value Reference Range Interpretation Comments Coronavirus (COVID-19) Not Detected (06/12/22 DEJUAN (test code = 11:26 PM) Coronavirus (COVID-19) DEJUAN) [facility] 04:26:00 Test Item Value Reference Range Interpretation Comments HS Troponin I (test code = HS Troponin 46 I) [facility] [id number] 04:26:00 Test Item Value Reference Range Interpretation Comments BNP (test code = BNP) [facility] [facility] HospitalKumtludIISSBVBBUS2733-63-04 04:26:00 Test Item Value Reference Range Interpretation Comments Coronavirus (COVID-19) Not Detected (06/12/22 DEJUAN (test code = 11:26 PM) Coronavirus (COVID-19) DEJUAN) [facility] [id number] 04:26:00 Test Item Value Reference Range Interpretation Comments HS Troponin I (test code = HS Troponin 46 I) [facility] [id number] 04:26:00 Test Item Value Reference Range Interpretation Comments BNP (test code = BNP) 85 [facility] HospitalYjzcoqgOFNELQRAHT0328-84-97 04:26:00 Test Item Value Reference Range Interpretation Comments Coronavirus (COVID-19) Not Detected (06/12/22 DEJUAN (test code = 11:26 PM) Coronavirus (COVID-19) DEJUAN) [facility] [id number] 04:26:00 Test Item Value Reference Range Interpretation Comments HS Troponin I (test code = HS Troponin 46 I) [facility] [id number] 04:26:00 Test Item Value Reference Range Interpretation Comments BNP (test code = BNP) [facility] HospitalVgfwpxaSOJCBFAILA6165-11-78 04:26:00 Test Item Value Reference Range Interpretation Comments Coronavirus (COVID-19) Not Detected (06/12/22 DEJUAN (test code = 11:26 PM) Coronavirus (COVID-19) DEJUAN) [facility] [id number] 04:26:00 Test Item Value Reference Range Interpretation Comments HS Troponin I (test code = HS Troponin 46 I) [facility]aginawpopADWFXRVPL2434-74-07 04:26:00 Test Item Value Reference Range Interpretation Comments BNP (test code = BNP) [facility] HospitalXshgvkoQIPSWFCSJE2324-10-22 04:26:00 Test Item Value Reference Range Interpretation Comments Coronavirus (COVID-19) Not Detected (06/12/22 DEJUAN (test code = 11:26 PM) Coronavirus (COVID-19) DEJUAN) [facility]awLoungeUpAC [id number] 04:26:00 Test Item Value Reference Range Interpretation Comments HS Troponin I (test code = HS Troponin 46 I) [facility]AC [id number] 04:26:00 Test Item Value Reference Range Interpretation Comments BNP (test code = BNP) [facility]51 [facility] HospitalOatuvnrTDCFBDVGEI1617-70-85 04:26:00 Test Item Value Reference Range Interpretation Comments Coronavirus (COVID-19) Not Detected (06/12/22 DEJUAN (test code = 11:26 PM) Coronavirus (COVID-19) DEJUAN) [facility] [id number] 04:26:00 Test Item Value Reference Range Interpretation Comments HS Troponin I (test code = HS Troponin 46 I) [facility] [id number] 04:26:00 Test Item Value Reference Range Interpretation Comments BNP (test code = BNP) 85 [facility] HospitalVvnedosWGYCPIIVHC3412-14-06 04:26:00 Test Item Value Reference Range Interpretation Comments Coronavirus (COVID-19) Not Detected (06/12/22 DEJUAN (test code = 11:26 PM) Coronavirus (COVID-19) DEJUAN) [facility] [id number] 04:26:00 Test Item Value Reference Range Interpretation Comments HS Troponin I (test code = HS Troponin 46 I) [facility] [id number] 04:26:00 Test Item Value Reference Range Interpretation Comments BNP (test code = BNP) 85 [facility] HospitalLgaanlxSRRAFZWFCB1993-75-59 04:26:00 Test Item Value Reference Range Interpretation Comments Coronavirus (COVID-19) Not Detected (06/12/22 DEJUAN (test code = 11:26 PM) Coronavirus (COVID-19) DEJUAN) [facility] [id number] 04:26:00 Test Item Value Reference Range Interpretation Comments HS Troponin I (test code = HS Troponin 46 I) [facility] [id number] 04:26:00 Test Item Value Reference Range Interpretation Comments BNP (test code = BNP) [facility]51 [facility] HospitalDlarwggERZKAUUGUH2133-47-29 04:26:00 Test Item Value Reference Range Interpretation Comments Coronavirus (COVID-19) Not Detected (06/12/22 DEJUAN (test code = 11:26 PM) Coronavirus (COVID-19) DEJUAN) [facility] 04:26:00 Test Item Value Reference Range Interpretation Comments HS Troponin I (test code = HS Troponin 46 I) [facility] 04:26:00 Test Item Value Reference Range Interpretation Comments BNP (test code = BNP) 851 [facility] CenterAptecjcQLYYGSIUJZ9013-04-99 04:26:00 Test Item Value Reference Range Interpretation Comments Coronavirus (COVID-19) Not Detected (06/12/22 DEJUAN (test code = 11:26 PM) Coronavirus (COVID-19) DEJUAN) [facility] 04:26:00 Test Item Value Reference Range Interpretation Comments HS Troponin I (test code = HS Troponin 46 I) [facility] 04:26:00 Test Item Value Reference Range Interpretation Comments BNP (test code = BNP) 851 [facility] CenterMgrhryyTPBLZHYFLY5452-55-92 04:26:00 Test Item Value Reference Range Interpretation Comments Coronavirus (COVID-19) Not Detected (06/12/22 DEJUAN (test code = 11:26 PM) Coronavirus (COVID-19) DEJUAN) [facility] 04:26:00 Test Item Value Reference Range Interpretation Comments HS Troponin I (test code = HS Troponin 46 I) [facility] 04:26:00 Test Item Value Reference Range Interpretation Comments BNP (test code = BNP) 851 [facility] CenterDnbdcxoAEIYKROEEL0694-16-48 04:26:00 Test Item Value Reference Range Interpretation Comments Coronavirus (COVID-19) Not Detected (06/12/22 DEJUAN (test code = 11:26 PM) Coronavirus (COVID-19) DEJUAN) [facility] 04:26:00 Test Item Value Reference Range Interpretation Comments HS Troponin I (test code = HS Troponin 46 I) [facility] 04:26:00 Test Item Value Reference Range Interpretation Comments BNP (test code = BNP) 851 [facility] CenterFntlgriRTGSXZLTSY3312-06-74 04:26:00 Test Item Value Reference Range Interpretation Comments Coronavirus (COVID-19) Not Detected (06/12/22 DEJUAN (test code = 11:26 PM) Coronavirus (COVID-19) DEJUAN) [facility] [id number] 04:26:00 Test Item Value Reference Range Interpretation Comments HS Troponin I (test code = HS Troponin 46 I) [facility]2022-07-25 04:26:00 Test Item Value Reference Range Interpretation Comments BNP (test code = BNP) [facility]fyxbggEEYBEWPJLC5065-21-63 04:26:00 Test Item Value Reference Range Interpretation Comments Coronavirus (COVID-19) Not Detected (06/12/22 DEJUAN (test code = 11:26 PM) Coronavirus (COVID-19) DEJUAN) [facility]2022-07-25 04:26:00 Test Item Value Reference Range Interpretation Comments HS Troponin I (test code = HS Troponin 46 I) [facility]2022-07-25 04:26:00 Test Item Value Reference Range Interpretation Comments BNP (test code = BNP) 851 [facility] HospitalEmuaupjWIINVZUZWD0564-81-50 04:26:00 Test Item Value Reference Range Interpretation Comments Coronavirus (COVID-19) Not Detected (06/12/22 DEJUAN (test code = 11:26 PM) Coronavirus (COVID-19) DEJUAN) [facility] CampusMzkgetzFKMYSSHZLP6568-42-26 02:20:00 Test Item Value Reference Range Interpretation Comments MCH (test code = MCH) 24.5 pg 27.0-31.0 [facility] CampusYsnbblcILXJLNKKRQ1675-83-95 02:20:00 Test Item Value Reference Range Interpretation Comments MCHC (test code = MCHC) 32.4 32.0-36.0 [facility] CampusBqvwjcyHIBSHWEAPO4043-74-63 02:20:00 Test Item Value Reference Range Interpretation Comments RDW (test code = RDW) 21.1 11.5-14.5 [facility] CampusBgipwdoMXCXSCUNAP5036-55-84 02:20:00 Test Item Value Reference Range Interpretation Comments Platelet (test code = Platelet) 297 133-450 [facility] CampusNrfzkwgVVEHVINTQY3611-67-71 02:20:00 Test Item Value Reference Range Interpretation Comments MPV (test code = MPV) 7.5 7.4-10.4 [facility] [id number] 02:20:00 Test Item Value Reference Range Interpretation Comments Segs (test code = Segs) 85.8 45.0-75.0 [facility] [id number] 02:20:00 Test Item Value Reference Range Interpretation Comments Lymphocytes (test code = Lymphocytes) 8.5 20.0-40.0 [place] 325412-07-25 02:20:00 Test Item Value Reference Range Interpretation Comments Monocytes (test code = Monocytes) 5.0 2.0-12.0 [place] 325412-07-25 02:20:00 Test Item Value Reference Range Interpretation Comments Eosinophils (test code = 0.3 See_Comment [A utomated message] The Eosinophils) system which ge nerated this result tra nsmitted reference range : <=4.0. The reference r hugo was not used to int erpret this result as normal/abnormal . [facility] [id number] 02:20:00 Test Item Value Reference Range Interpretation Comments Basophils (test code = 0.4 See_Comment [Aut omated message] The Basophils) system which ge nerated this result tra nsmitted reference range : <=1.0. The reference r hugo was not used to int erpret this result as normal/abnormal . [facility] [id number] 02:20:00 Test Item Value Reference Range Interpretation Comments Neutrophils # (test code = Neutrophils 7.4 1.5-8.1 #) [facility] Camp[id number] 02:20:00 Test Item Value Reference Range Interpretation Comments Lymphocytes # (test code = Lymphocytes 0.7 1.0-5.5 #) [place] 325412-07-25 02:20:00 Test Item Value Reference Range Interpretation Comments Monocytes # (test code 0.4 See_Comment [Aut omated message] The = Monocytes #) system which generated this result tra nsmitted reference range : <=0.8. The reference r hugo was not used to int erpret this result as normal/abnormal . [place] 325412-07-25 02:20:00 Test Item Value Reference Range Interpretation Comments Microcyte (test code = 1+ *ABN*(06/12/22 Microcyte) 9:20 PM) [facility] [id number] 02:20:00 Test Item Value Reference Range Interpretation Comments HS Troponin I (test code = HS Troponin 52 I) [facility] [id number] 02:20:00 Test Item Value Reference Range Interpretation Comments Glucose Lvl (test code = Glucose Lvl) 103 70-99 [facility] [id number] 02:20:00 Test Item Value Reference Range Interpretation Comments BUN (test code = BUN) 22 7-22 [facility]2022-07-25 02:20:00 Test Item Value Reference Range Interpretation Comments Creatinine Lvl (test code = Creatinine 0.90 0.50-1.40 Lvl) [facility]2022-07-25 02:20:00 Test Item Value Reference Range Interpretation Comments Sodium Lvl (test code = Sodium Lvl) 131 135-145 [facility] [id number] 02:20:00 Test Item Value Reference Range Interpretation Comments Potassium Lvl (test code = Potassium 4.2 3.5-5.1 Lvl) [facility] [id number] 02:20:00 Test Item Value Reference Range Interpretation Comments Chloride Lvl (test code = Chloride Lvl) 97 95-109 [facility] [id number] 02:20:00 Test Item Value Reference Range Interpretation Comments CO2 (test code = CO2) 26 24-32 [facility]2022-07-25 02:20:00 Test Item Value Reference Range Interpretation Comments Calcium Lvl (test code = Calcium Lvl) 8.7 8.5-10.5 [facility] [id number] 02:20:00 Test Item Value Reference Range Interpretation Comments Total Protein (test code = Total 7.0 6.4-8.4 Protein) [facility] [id number] 02:20:00 Test Item Value Reference Range Interpretation Comments Albumin Lvl (test code = Albumin Lvl) 3.4 3.5-5.0 [place] 480482-07-25 02:20:00 Test Item Value Reference Range Interpretation Comments ALT (test code = ALT) 18 See_Comment [Auto mated message] The system which ge nerated this result transmit lavon reference range : <=65. The reference range was not used to interpr et this result as dionne l/abnormal. [place] 480482-07-25 02:20:00 Test Item Value Reference Range Interpretation Comments AST (test code = AST) 27 See_Comment [Auto mated message] The system which ge nerated this result transmit lavon reference range : <=37. The reference range was not used to interpr et this result as dionne l/abnormal. [place] 480482-07-25 02:20:00 Test Item Value Reference Range Interpretation Comments Alk Phos (test code = Alk Phos) 57 39-136 [place] 480482-07-25 02:20:00 Test Item Value Reference Range Interpretation Comments Bili Total (test code = Bili Total) 1.0 0.2-1.3 [place] 480482-07-25 02:20:00 Test Item Value Reference Range Interpretation Comments AGAP (test code = AGAP) 12.2 10.0-20.0 [place] 480482-07-25 02:20:00 Test Item Value Reference Range Interpretation Comments B/C Ratio (test code = B/C Ratio) 24 1 6-25 [place] 480482-07-25 02:20:00 Test Item Value Reference Range Interpretation Comments Globulin (test code = Globulin) 3.6 2.7-4.2 [place] 480482-07-25 02:20:00 Test Item Value Reference Range Interpretation Comments A/G Ratio (test code = A/G Ratio) 0.9 1 0.7-1.6 [place] 480482-07-25 02:20:00 Test Item Value Reference Range Interpretation Comments eGFR (test code = eGFR) 62 [place] 325412-07-25 02:20:00 Test Item Value Reference Range Interpretation Comments WBC (test code = WBC) 8.6 3.7-10.4 [place] 325412-07-25 02:20:00 Test Item Value Reference Range Interpretation Comments RBC (test code = RBC) 3.58 4.20-5.40 [place] 325412-07-25 02:20:00 Test Item Value Reference Range Interpretation Comments Hgb (test code = Hgb) 8.8 12.0-16.0 [place] 325412-07-25 02:20:00 Test Item Value Reference Range Interpretation Comments Hct (test code = Hct) 27.1 36.0-48.0 [place] 325412-07-25 02:20:00 Test Item Value Reference Range Interpretation Comments MCV (test code = MCV) 75.6 80.0-98.0 [place] 325412-07-25 02:20:00 Test Item Value Reference Range Interpretation Comments MCH (test code = MCH) 24.5 pg 27.0-31.0 [place] 325412-07-25 02:20:00 Test Item Value Reference Range Interpretation Comments MCHC (test code = MCHC) 32.4 32.0-36.0 [place] 325412-07-25 02:20:00 Test Item Value Reference Range Interpretation Comments RDW (test code = RDW) 21.1 11.5-14.5 [place] 325412-07-25 02:20:00 Test Item Value Reference Range Interpretation Comments Platelet (test code = Platelet) 297 133-450 [place] 325412-07-25 02:20:00 Test Item Value Reference Range Interpretation Comments MPV (test code = MPV) 7.5 7.4-10.4 [place] 325412-07-25 02:20:00 Test Item Value Reference Range Interpretation Comments Segs (test code = Segs) 85.8 45.0-75.0 [place] 325412-07-25 02:20:00 Test Item Value Reference Range Interpretation Comments Lymphocytes (test code = Lymphocytes) 8.5 20.0-40.0 [place] 325412-07-25 02:20:00 Test Item Value Reference Range Interpretation Comments Monocytes (test code = Monocytes) 5.0 2.0-12.0 [place] [address]-07-25 02:20:00 Test Item Value Reference Range Interpretation Comments Eosinophils (test code = 0.3 See_Comment [A utomated message] The Eosinophils) system which ge nerated this result tra nsmitted reference range : <=4.0. The reference r hugo was not used to int erpret this result as normal/abnormal . [place] 325412-07-25 02:20:00 Test Item Value Reference Range Interpretation Comments Basophils (test code = 0.4 See_Comment [Aut omated message] The Basophils) system which ge nerated this result tra nsmitted reference range : <=1.0. The reference r hugo was not used to int erpret this result as normal/abnormal . [facility] C[id number] 02:20:00 Test Item Value Reference Range Interpretation Comments Neutrophils # (test code = Neutrophils 7.4 1.5-8.1 #) [facility] [id number] 02:20:00 Test Item Value Reference Range Interpretation Comments Lymphocytes # (test code = Lymphocytes 0.7 1.0-5.5 #) [facility] [id number] 02:20:00 Test Item Value Reference Range Interpretation Comments Monocytes # (test code 0.4 See_Comment [Aut omated message] The = Monocytes #) system which generated this result tra nsmitted reference range : <=0.8. The reference r hugo was not used to int erpret this result as normal/abnormal . [facility] [id number] 02:20:00 Test Item Value Reference Range Interpretation Comments Microcyte (test code = 1+ *ABN*(06/12/22 Microcyte) 9:20 PM) [facility] [id number] 02:20:00 Test Item Value Reference Range Interpretation Comments HS Troponin I (test code = HS Troponin 52 I) [facility]2022-07-25 02:20:00 Test Item Value Reference Range Interpretation Comments Glucose Lvl (test code = Glucose Lvl) 103 70-99 [facility]2022-07-25 02:20:00 Test Item Value Reference Range Interpretation Comments BUN (test code = BUN) 22 7-22 [facility]2022-07-25 02:20:00 Test Item Value Reference Range Interpretation Comments Creatinine Lvl (test code = Creatinine 0.90 0.50-1.40 Lvl) [facility]2022-07-25 02:20:00 Test Item Value Reference Range Interpretation Comments Sodium Lvl (test code = Sodium Lvl) 131 135-145 [facility]2022-07-25 02:20:00 Test Item Value Reference Range Interpretation Comments Potassium Lvl (test code = Potassium 4.2 3.5-5.1 Lvl) [facility] [id number] 02:20:00 Test Item Value Reference Range Interpretation Comments Chloride Lvl (test code = Chloride Lvl) 97 95-109 [place] 480482-07-25 02:20:00 Test Item Value Reference Range Interpretation Comments CO2 (test code = CO2) 26 24-32 [place] 480482-07-25 02:20:00 Test Item Value Reference Range Interpretation Comments Calcium Lvl (test code = Calcium Lvl) 8.7 8.5-10.5 [facility]IR[facility]DA[place] [id number] 02:20:00 Test Item Value Reference Range Interpretation Comments Total Protein (test code = Total 7.0 6.4-8.4 Protein) [facility]2022-07-25 02:20:00 Test Item Value Reference Range Interpretation Comments Albumin Lvl (test code = Albumin Lvl) 3.4 3.5-5.0 [facility] [id number] 02:20:00 Test Item Value Reference Range Interpretation Comments ALT (test code = ALT) 18 See_Comment [Auto mated message] The system which ge nerated this result transmit lavon reference range : <=65. The reference range was not used to interpr et this result as dionne l/abnormal. [facility] [id number] 02:20:00 Test Item Value Reference Range Interpretation Comments AST (test code = AST) 27 See_Comment [Auto mated message] The system which ge nerated this result transmit lavon reference range : <=37. The reference range was not used to interpr et this result as dionne l/abnormal. [facility] [id number] 02:20:00 Test Item Value Reference Range Interpretation Comments Alk Phos (test code = Alk Phos) 57 39-136 [facility] [id number] 02:20:00 Test Item Value Reference Range Interpretation Comments Bili Total (test code = Bili Total) 1.0 0.2-1.3 [place] 480482-07-25 02:20:00 Test Item Value Reference Range Interpretation Comments AGAP (test code = AGAP) 12.2 10.0-20.0 [facility] [id number] 02:20:00 Test Item Value Reference Range Interpretation Comments B/C Ratio (test code = B/C Ratio) 24 1 6-25 [facility]2022-07-25 02:20:00 Test Item Value Reference Range Interpretation Comments Globulin (test code = Globulin) 3.6 2.7-4.2 [facility]2022-07-25 02:20:00 Test Item Value Reference Range Interpretation Comments A/G Ratio (test code = A/G Ratio) 0.9 1 0.7-1.6 [facility]2022-07-25 02:20:00 Test Item Value Reference Range Interpretation Comments eGFR (test code = eGFR) 62 [place] 325412-07-25 02:20:00 Test Item Value Reference Range Interpretation Comments WBC (test code = WBC) 8.6 3.7-10.4 [place] 325412-07-25 02:20:00 Test Item Value Reference Range Interpretation Comments RBC (test code = RBC) 3.58 4.20-5.40 [place] 325412-07-25 02:20:00 Test Item Value Reference Range Interpretation Comments Hgb (test code = Hgb) 8.8 12.0-16.0 [place] 325412-07-25 02:20:00 Test Item Value Reference Range Interpretation Comments Hct (test code = Hct) 27.1 36.0-48.0 [place] 325412-07-25 02:20:00 Test Item Value Reference Range Interpretation Comments MCV (test code = MCV) 75.6 80.0-98.0 [place] 325412-07-25 02:20:00 Test Item Value Reference Range Interpretation Comments MCH (test code = MCH) 24.5 pg 27.0-31.0 [place] 325412-07-25 02:20:00 Test Item Value Reference Range Interpretation Comments MCHC (test code = MCHC) 32.4 32.0-36.0 [place] 325412-07-25 02:20:00 Test Item Value Reference Range Interpretation Comments RDW (test code = RDW) 21.1 11.5-14.5 [place] 325412-07-25 02:20:00 Test Item Value Reference Range Interpretation Comments Platelet (test code = Platelet) 297 133-450 [facility] [id number] 02:20:00 Test Item Value Reference Range Interpretation Comments MPV (test code = MPV) 7.5 7.4-10.4 [facility] [id number] 02:20:00 Test Item Value Reference Range Interpretation Comments Segs (test code = Segs) 85.8 45.0-75.0 [facility] CampusRydyjjsQNVYSQBTKT3829-05-18 02:20:00 Test Item Value Reference Range Interpretation Comments Lymphocytes (test code = Lymphocytes) 8.5 20.0-40.0 [place] 325412-07-25 02:20:00 Test Item Value Reference Range Interpretation Comments Monocytes (test code = Monocytes) 5.0 2.0-12.0 [facility] [id number] 02:20:00 Test Item Value Reference Range Interpretation Comments Eosinophils (test code = 0.3 See_Comment [A utomated message] The Eosinophils) system which ge nerated this result tra nsmitted reference range : <=4.0. The reference r hugo was not used to int erpret this result as normal/abnormal . [facility] [id number] 02:20:00 Test Item Value Reference Range Interpretation Comments Basophils (test code = 0.4 See_Comment [Aut omated message] The Basophils) system which ge nerated this result tra nsmitted reference range : <=1.0. The reference r hugo was not used to int erpret this result as normal/abnormal . [facility] [id number] 02:20:00 Test Item Value Reference Range Interpretation Comments Neutrophils # (test code = Neutrophils 7.4 1.5-8.1 #) [facility] CampusAdcjnjvCGNLKTAYEG4306-67-11 02:20:00 Test Item Value Reference Range Interpretation Comments Lymphocytes # (test code = Lymphocytes 0.7 1.0-5.5 #) [place] 325412-07-25 02:20:00 Test Item Value Reference Range Interpretation Comments Monocytes # (test code 0.4 See_Comment [Aut omated message] The = Monocytes #) system which generated this result tra nsmitted reference range : <=0.8. The reference r hugo was not used to int erpret this result as normal/abnormal . [facility] H[id number] 02:20:00 Test Item Value Reference Range Interpretation Comments Microcyte (test code = 1+ *ABN*(06/12/22 Microcyte) 9:20 PM) [facility] [id number] 02:20:00 Test Item Value Reference Range Interpretation Comments HS Troponin I (test code = HS Troponin 52 I) [facility] [id number] 02:20:00 Test Item Value Reference Range Interpretation Comments Glucose Lvl (test code = Glucose Lvl) 103 70-99 [facility]2022-07-25 02:20:00 Test Item Value Reference Range Interpretation Comments BUN (test code = BUN) 22 06-10 [facility]2022-07-25 02:20:00 Test Item Value Reference Range Interpretation Comments Creatinine Lvl (test code = Creatinine 0.90 0.50-1.40 Lvl) [facility]2022-07-25 02:20:00 Test Item Value Reference Range Interpretation Comments Sodium Lvl (test code = Sodium Lvl) 131 135-145 [facility]2022-07-25 02:20:00 Test Item Value Reference Range Interpretation Comments Potassium Lvl (test code = Potassium 4.2 3.5-5.1 Lvl) [facility]2022-07-25 02:20:00 Test Item Value Reference Range Interpretation Comments Chloride Lvl (test code = Chloride Lvl) 97 95-109 [facility]2022-07-25 02:20:00 Test Item Value Reference Range Interpretation Comments CO2 (test code = CO2) 24-32 [facility]2022-07-25 02:20:00 Test Item Value Reference Range Interpretation Comments Calcium Lvl (test code = Calcium Lvl) 8.7 8.5-10.5 [facility]2022-07-25 02:20:00 Test Item Value Reference Range Interpretation Comments Total Protein (test code = Total 7.0 6.4-8.4 Protein) [facility]2022-07-25 02:20:00 Test Item Value Reference Range Interpretation Comments Albumin Lvl (test code = Albumin Lvl) 3.4 3.5-5.0 [facility]2022-07-25 02:20:00 Test Item Value Reference Range Interpretation Comments ALT (test code = ALT) 18 See_Comment [Auto mated message] The system which ge nerated this result transmit lavon reference range : <=65. The reference range was not used to interpr et this result as dionne l/abnormal. [facility] [id number] 02:20:00 Test Item Value Reference Range Interpretation Comments AST (test code = AST) 27 See_Comment [Auto mated message] The system which ge nerated this result transmit lavon reference range : <=37. The reference range was not used to interpr et this result as dionne l/abnormal. [facility] [id number] 02:20:00 Test Item Value Reference Range Interpretation Comments Alk Phos (test code = Alk Phos) 57 39-136 [facility] [id number] 02:20:00 Test Item Value Reference Range Interpretation Comments Bili Total (test code = Bili Total) 1.0 0.2-1.3 [facility] [id number] 02:20:00 Test Item Value Reference Range Interpretation Comments AGAP (test code = AGAP) 12.2 10.0-20.0 [facility] [id number] 02:20:00 Test Item Value Reference Range Interpretation Comments B/C Ratio (test code = B/C Ratio) 24 1 6-25 [facility] [id number] 02:20:00 Test Item Value Reference Range Interpretation Comments Globulin (test code = Globulin) 3.6 2.7-4.2 [facility] [id number] 02:20:00 Test Item Value Reference Range Interpretation Comments A/G Ratio (test code = A/G Ratio) 0.9 1 0.7-1.6 [facility] [id number] 02:20:00 Test Item Value Reference Range Interpretation Comments eGFR (test code = eGFR) 62 [place] 325412-07-25 02:20:00 Test Item Value Reference Range Interpretation Comments WBC (test code = WBC) 8.6 3.7-10.4 [place] 325412-07-25 02:20:00 Test Item Value Reference Range Interpretation Comments RBC (test code = RBC) 3.58 4.20-5.40 [place] 325412-07-25 02:20:00 Test Item Value Reference Range Interpretation Comments Hgb (test code = Hgb) 8.8 12.0-16.0 [place] 325412-07-25 02:20:00 Test Item Value Reference Range Interpretation Comments Hct (test code = Hct) 27.1 36.0-48.0 [place] 325412-07-25 02:20:00 Test Item Value Reference Range Interpretation Comments MCV (test code = MCV) 75.6 80.0-98.0 [place] 325412-07-25 02:20:00 Test Item Value Reference Range Interpretation Comments MCH (test code = MCH) 24.5 pg 27.0-31.0 [facility] [id number] 02:20:00 Test Item Value Reference Range Interpretation Comments MCHC (test code = MCHC) 32.4 32.0-36.0 [facility] [id number] 02:20:00 Test Item Value Reference Range Interpretation Comments RDW (test code = RDW) 21.1 11.5-14.5 [place] 325412-07-25 02:20:00 Test Item Value Reference Range Interpretation Comments Platelet (test code = Platelet) 297 133-450 [facility] CampusOeeykatYWMKVPSUMW9175-20-05 02:20:00 Test Item Value Reference Range Interpretation Comments MPV (test code = MPV) 7.5 7.4-10.4 [place] 325412-07-25 02:20:00 Test Item Value Reference Range Interpretation Comments Segs (test code = Segs) 85.8 45.0-75.0 [place] 325412-07-25 02:20:00 Test Item Value Reference Range Interpretation Comments Lymphocytes (test code = Lymphocytes) 8.5 20.0-40.0 [place] 325412-07-25 02:20:00 Test Item Value Reference Range Interpretation Comments Monocytes (test code = Monocytes) 5.0 2.0-12.0 [place] 325412-07-25 02:20:00 Test Item Value Reference Range Interpretation Comments Eosinophils (test code = 0.3 See_Comment [A utomated message] The Eosinophils) system which ge nerated this result tra nsmitted reference range : <=4.0. The reference r hugo was not used to int erpret this result as normal/abnormal . [facility] [id number] 02:20:00 Test Item Value Reference Range Interpretation Comments Basophils (test code = 0.4 See_Comment [Aut omated message] The Basophils) system which ge nerated this result tra nsmitted reference range : <=1.0. The reference r hugo was not used to int erpret this result as normal/abnormal . [facility] Camp[id number] 02:20:00 Test Item Value Reference Range Interpretation Comments Neutrophils # (test code = Neutrophils 7.4 1.5-8.1 #) [id number] 02:20:00 Test Item Value Reference Range Interpretation Comments Lymphocytes # (test code = Lymphocytes 0.7 1.0-5.5 #) [facility] CampusRjdcfblYWPLTQSCRZ4031-65-26 02:20:00 Test Item Value Reference Range Interpretation Comments Monocytes # (test code 0.4 See_Comment [Aut omated message] The = Monocytes #) system which generated this result tra nsmitted reference range : <=0.8. The reference r hugo was not used to int erpret this result as normal/abnormal . [facility] CampusBtciymsMEADKITKXK1779-12-23 02:20:00 Test Item Value Reference Range Interpretation Comments Microcyte (test code = 1+ *ABN*(06/12/22 Microcyte) 9:20 PM) [facility] [id number] 02:20:00 Test Item Value Reference Range Interpretation Comments HS Troponin I (test code = HS Troponin 52 I) [facility] [id number] 02:20:00 Test Item Value Reference Range Interpretation Comments Glucose Lvl (test code = Glucose Lvl) 103 70-99 [facility] [id number] 02:20:00 Test Item Value Reference Range Interpretation Comments BUN (test code = BUN) 22 06-10 [facility] [id number] 02:20:00 Test Item Value Reference Range Interpretation Comments Creatinine Lvl (test code = Creatinine 0.90 0.50-1.40 Lvl) [facility] [id number] 02:20:00 Test Item Value Reference Range Interpretation Comments Sodium Lvl (test code = Sodium Lvl) 131 135-145 [place] 480482-07-25 02:20:00 Test Item Value Reference Range Interpretation Comments Potassium Lvl (test code = Potassium 4.2 3.5-5.1 Lvl) [place] 480482-07-25 02:20:00 Test Item Value Reference Range Interpretation Comments Chloride Lvl (test code = Chloride Lvl) 97 95-109 [place] 480482-07-25 02:20:00 Test Item Value Reference Range Interpretation Comments CO2 (test code = CO2) 26 24-32 [place] 480482-07-25 02:20:00 Test Item Value Reference Range Interpretation Comments Calcium Lvl (test code = Calcium Lvl) 8.7 8.5-10.5 [place] 480482-07-25 02:20:00 Test Item Value Reference Range Interpretation Comments Total Protein (test code = Total 7.0 6.4-8.4 Protein) [place] 480482-07-25 02:20:00 Test Item Value Reference Range Interpretation Comments Albumin Lvl (test code = Albumin Lvl) 3.4 3.5-5.0 [place] 480482-07-25 02:20:00 Test Item Value Reference Range Interpretation Comments ALT (test code = ALT) 18 See_Comment [Auto mated message] The system which ge nerated this result transmit lavon reference range : <=65. The reference range was not used to interpr et this result as dionne l/abnormal. [facility] [id number] 02:20:00 Test Item Value Reference Range Interpretation Comments AST (test code = AST) 27 See_Comment [Auto mated message] The system which ge nerated this result transmit lavon reference range : <=37. The reference range was not used to interpr et this result as dionne l/abnormal. [facility] [id number] 02:20:00 Test Item Value Reference Range Interpretation Comments Alk Phos (test code = Alk Phos) 57 39-136 [place] 480482-07-25 02:20:00 Test Item Value Reference Range Interpretation Comments Bili Total (test code = Bili Total) 1.0 0.2-1.3 [place] 480482-07-25 02:20:00 Test Item Value Reference Range Interpretation Comments AGAP (test code = AGAP) 12.2 10.0-20.0 [facility]2022-07-25 02:20:00 Test Item Value Reference Range Interpretation Comments B/C Ratio (test code = B/C Ratio) 24 1 6-25 [facility]2022-07-25 02:20:00 Test Item Value Reference Range Interpretation Comments Globulin (test code = Globulin) 3.6 2.7-4.2 [facility]2022-07-25 02:20:00 Test Item Value Reference Range Interpretation Comments A/G Ratio (test code = A/G Ratio) 0.9 1 0.7-1.6 [place] 480482-07-25 02:20:00 Test Item Value Reference Range Interpretation Comments eGFR (test code = eGFR) 62 [facility] [id number] 02:20:00 Test Item Value Reference Range Interpretation Comments WBC (test code = WBC) 8.6 3.7-10.4 [place] 325412-07-25 02:20:00 Test Item Value Reference Range Interpretation Comments RBC (test code = RBC) 3.58 4.20-5.40 [place] 325412-07-25 02:20:00 Test Item Value Reference Range Interpretation Comments Hgb (test code = Hgb) 8.8 12.0-16.0 [place] 325412-07-25 02:20:00 Test Item Value Reference Range Interpretation Comments Hct (test code = Hct) 27.1 36.0-48.0 [place] 325412-07-25 02:20:00 Test Item Value Reference Range Interpretation Comments MCV (test code = MCV) 75.6 80.0-98.0 [place] 325412-07-25 02:20:00 Test Item Value Reference Range Interpretation Comments MCH (test code = MCH) 24.5 pg 27.0-31.0 [place] 325412-07-25 02:20:00 Test Item Value Reference Range Interpretation Comments MCHC (test code = MCHC) 32.4 32.0-36.0 [place] 325412-07-25 02:20:00 Test Item Value Reference Range Interpretation Comments RDW (test code = RDW) 21.1 11.5-14.5 [place] 325412-07-25 02:20:00 Test Item Value Reference Range Interpretation Comments Platelet (test code = Platelet) 297 133-450 [place] 325412-07-25 02:20:00 Test Item Value Reference Range Interpretation Comments MPV (test code = MPV) 7.5 7.4-10.4 [place] 325412-07-25 02:20:00 Test Item Value Reference Range Interpretation Comments Segs (test code = Segs) 85.8 45.0-75.0 [place] 325412-07-25 02:20:00 Test Item Value Reference Range Interpretation Comments Lymphocytes (test code = Lymphocytes) 8.5 20.0-40.0 [place] 325412-07-25 02:20:00 Test Item Value Reference Range Interpretation Comments Monocytes (test code = Monocytes) 5.0 2.0-12.0 [place] 325412-07-25 02:20:00 Test Item Value Reference Range Interpretation Comments Eosinophils (test code = 0.3 See_Comment [A utomated message] The Eosinophils) system which ge nerated this result tra nsmitted reference range : <=4.0. The reference r hugo was not used to int erpret this result as normal/abnormal . [place] 325412-07-25 02:20:00 Test Item Value Reference Range Interpretation Comments Basophils (test code = 0.4 See_Comment [Aut omated message] The Basophils) system which ge nerated this result tra nsmitted reference range : <=1.0. The reference r hugo was not used to int erpret this result as normal/abnormal . [place] 325412-07-25 02:20:00 Test Item Value Reference Range Interpretation Comments Neutrophils # (test code = Neutrophils 7.4 1.5-8.1 #) [place] 325412-07-25 02:20:00 Test Item Value Reference Range Interpretation Comments Lymphocytes # (test code = Lymphocytes 0.7 1.0-5.5 #) [place] 325412-07-25 02:20:00 Test Item Value Reference Range Interpretation Comments Monocytes # (test code 0.4 See_Comment [Aut omated message] The = Monocytes #) system which generated this result tra nsmitted reference range : <=0.8. The reference r hugo was not used to int erpret this result as normal/abnormal . [facility] [id number] 02:20:00 Test Item Value Reference Range Interpretation Comments Microcyte (test code = 1+ *ABN*(06/12/22 Microcyte) 9:20 PM) [facility] [id number] 02:20:00 Test Item Value Reference Range Interpretation Comments HS Troponin I (test code = HS Troponin 52 I) [facility] [id number] 02:20:00 Test Item Value Reference Range Interpretation Comments Glucose Lvl (test code = Glucose Lvl) 103 70-99 [facility]2022-07-25 02:20:00 Test Item Value Reference Range Interpretation Comments BUN (test code = BUN) 22 - [facility]2022-07-25 02:20:00 Test Item Value Reference Range Interpretation Comments Creatinine Lvl (test code = Creatinine 0.90 0.50-1.40 Lvl) [facility] [id number] 02:20:00 Test Item Value Reference Range Interpretation Comments Sodium Lvl (test code = Sodium Lvl) 131 135-145 [facility]2022-07-25 02:20:00 Test Item Value Reference Range Interpretation Comments Potassium Lvl (test code = Potassium 4.2 3.5-5.1 Lvl) [facility]2022-07-25 02:20:00 Test Item Value Reference Range Interpretation Comments Chloride Lvl (test code = Chloride Lvl) 97 95-109 [facility] [id number] 02:20:00 Test Item Value Reference Range Interpretation Comments CO2 (test code = CO2) 26 24-32 [facility] [id number] 02:20:00 Test Item Value Reference Range Interpretation Comments Calcium Lvl (test code = Calcium Lvl) 8.7 8.5-10.5 [facility]2022-07-25 02:20:00 Test Item Value Reference Range Interpretation Comments Total Protein (test code = Total 7.0 6.4-8.4 Protein) [facility]2022-07-25 02:20:00 Test Item Value Reference Range Interpretation Comments Albumin Lvl (test code = Albumin Lvl) 3.4 3.5-5.0 [place] 480482-07-25 02:20:00 Test Item Value Reference Range Interpretation Comments ALT (test code = ALT) 18 See_Comment [Auto mated message] The system which ge nerated this result transmit lavon reference range : <=65. The reference range was not used to interpr et this result as dionne l/abnormal. [place] 480482-07-25 02:20:00 Test Item Value Reference Range Interpretation Comments AST (test code = AST) 27 See_Comment [Auto mated message] The system which ge nerated this result transmit lavon reference range : <=37. The reference range was not used to interpr et this result as dionne l/abnormal. [place] 480482-07-25 02:20:00 Test Item Value Reference Range Interpretation Comments Alk Phos (test code = Alk Phos) 57 39-136 [place] 480482-07-25 02:20:00 Test Item Value Reference Range Interpretation Comments Bili Total (test code = Bili Total) 1.0 0.2-1.3 [place] 480482-07-25 02:20:00 Test Item Value Reference Range Interpretation Comments AGAP (test code = AGAP) 12.2 10.0-20.0 [place] 480482-07-25 02:20:00 Test Item Value Reference Range Interpretation Comments B/C Ratio (test code = B/C Ratio) 24 1 6-25 [place] 480482-07-25 02:20:00 Test Item Value Reference Range Interpretation Comments Globulin (test code = Globulin) 3.6 2.7-4.2 [place] 480482-07-25 02:20:00 Test Item Value Reference Range Interpretation Comments A/G Ratio (test code = A/G Ratio) 0.9 1 0.7-1.6 [place] 480482-07-25 02:20:00 Test Item Value Reference Range Interpretation Comments eGFR (test code = eGFR) 62 [facility] [id number] 02:20:00 Test Item Value Reference Range Interpretation Comments WBC (test code = WBC) 8.6 3.7-10.4 [place] [address]-07-25 02:20:00 Test Item Value Reference Range Interpretation Comments RBC (test code = RBC) 3.58 4.20-5.40 [place] 325412-07-25 02:20:00 Test Item Value Reference Range Interpretation Comments Hgb (test code = Hgb) 8.8 12.0-16.0 [place] 325412-07-25 02:20:00 Test Item Value Reference Range Interpretation Comments Hct (test code = Hct) 27.1 36.0-48.0 [place] 325412-07-25 02:20:00 Test Item Value Reference Range Interpretation Comments MCV (test code = MCV) 75.6 80.0-98.0 [place] 325412-07-25 02:20:00 Test Item Value Reference Range Interpretation Comments MCH (test code = MCH) 24.5 pg 27.0-31.0 [place] 325412-07-25 02:20:00 Test Item Value Reference Range Interpretation Comments MCHC (test code = MCHC) 32.4 32.0-36.0 [place] 325412-07-25 02:20:00 Test Item Value Reference Range Interpretation Comments RDW (test code = RDW) 21.1 11.5-14.5 [place] 325412-07-25 02:20:00 Test Item Value Reference Range Interpretation Comments Platelet (test code = Platelet) 297 133-450 [facility] [id number] 02:20:00 Test Item Value Reference Range Interpretation Comments MPV (test code = MPV) 7.5 7.4-10.4 [place] 325412-07-25 02:20:00 Test Item Value Reference Range Interpretation Comments Segs (test code = Segs) 85.8 45.0-75.0 [place] [address]-07-25 02:20:00 Test Item Value Reference Range Interpretation Comments Lymphocytes (test code = Lymphocytes) 8.5 20.0-40.0 [place] [address]-07-25 02:20:00 Test Item Value Reference Range Interpretation Comments Monocytes (test code = Monocytes) 5.0 2.0-12.0 [place] 325412-07-25 02:20:00 Test Item Value Reference Range Interpretation Comments Eosinophils (test code = 0.3 See_Comment [A utomated message] The Eosinophils) system which ge nerated this result tra nsmitted reference range : <=4.0. The reference r hugo was not used to int erpret this result as normal/abnormal . [facility] [id number] 02:20:00 Test Item Value Reference Range Interpretation Comments Basophils (test code = 0.4 See_Comment [Aut omated message] The Basophils) system which ge nerated this result tra nsmitted reference range : <=1.0. The reference r hugo was not used to int erpret this result as normal/abnormal . [facility] CampusZtfkwdeJRFTQVPPRE4634-94-25 02:20:00 Test Item Value Reference Range Interpretation Comments Neutrophils # (test code = Neutrophils 7.4 1.5-8.1 #) [facility] Camp[id number] 02:20:00 Test Item Value Reference Range Interpretation Comments Lymphocytes # (test code = Lymphocytes 0.7 1.0-5.5 #) [facility] CampusIhmscofEVAHZEGSHR1367-08-01 02:20:00 Test Item Value Reference Range Interpretation Comments Monocytes # (test code 0.4 See_Comment [Aut omated message] The = Monocytes #) system which generated this result tra nsmitted reference range : <=0.8. The reference r hugo was not used to int erpret this result as normal/abnormal . [facility] [id number] 02:20:00 Test Item Value Reference Range Interpretation Comments Microcyte (test code = 1+ *ABN*(06/12/22 Microcyte) 9:20 PM) [facility] [id number] 02:20:00 Test Item Value Reference Range Interpretation Comments HS Troponin I (test code = HS Troponin 52 I) [facility]2022-07-25 02:20:00 Test Item Value Reference Range Interpretation Comments Glucose Lvl (test code = Glucose Lvl) 103 70-99 [facility]2022-07-25 02:20:00 Test Item Value Reference Range Interpretation Comments BUN (test code = BUN) 22 - [facility]2022-07-25 02:20:00 Test Item Value Reference Range Interpretation Comments Creatinine Lvl (test code = Creatinine 0.90 0.50-1.40 Lvl) [place] 480482-07-25 02:20:00 Test Item Value Reference Range Interpretation Comments Sodium Lvl (test code = Sodium Lvl) 131 135-145 [place] 480482-07-25 02:20:00 Test Item Value Reference Range Interpretation Comments Potassium Lvl (test code = Potassium 4.2 3.5-5.1 Lvl) [place] 480482-07-25 02:20:00 Test Item Value Reference Range Interpretation Comments Chloride Lvl (test code = Chloride Lvl) 97 95-109 [place] 480482-07-25 02:20:00 Test Item Value Reference Range Interpretation Comments CO2 (test code = CO2) 26 24-32 [place] 480482-07-25 02:20:00 Test Item Value Reference Range Interpretation Comments Calcium Lvl (test code = Calcium Lvl) 8.7 8.5-10.5 [place] 480482-07-25 02:20:00 Test Item Value Reference Range Interpretation Comments Total Protein (test code = Total 7.0 6.4-8.4 Protein) [place] 480482-07-25 02:20:00 Test Item Value Reference Range Interpretation Comments Albumin Lvl (test code = Albumin Lvl) 3.4 3.5-5.0 [place] 480482-07-25 02:20:00 Test Item Value Reference Range Interpretation Comments ALT (test code = ALT) 18 See_Comment [Auto mated message] The system which Neurosearch nerated this result transmit lavon reference range : <=65. The reference range was not used to interpr et this result as dionne l/abnormal. [facility] [id number] 02:20:00 Test Item Value Reference Range Interpretation Comments AST (test code = AST) 27 See_Comment [Auto mated message] The system which [employer] nerated this result transmit lavon reference range : <=37. The reference range was not used to interpr et this result as dionne l/abnormal. [place] 480482-07-25 02:20:00 Test Item Value Reference Range Interpretation Comments Alk Phos (test code = Alk Phos) 57 39-136 [facility] [id number] 02:20:00 Test Item Value Reference Range Interpretation Comments Bili Total (test code = Bili Total) 1.0 0.2-1.3 [facility]2022-07-25 02:20:00 Test Item Value Reference Range Interpretation Comments AGAP (test code = AGAP) 12.2 10.0-20.0 [facility]2022-07-25 02:20:00 Test Item Value Reference Range Interpretation Comments B/C Ratio (test code = B/C Ratio) 24 1 6-25 [place] 480482-07-25 02:20:00 Test Item Value Reference Range Interpretation Comments Globulin (test code = Globulin) 3.6 2.7-4.2 [place] 480482-07-25 02:20:00 Test Item Value Reference Range Interpretation Comments A/G Ratio (test code = A/G Ratio) 0.9 1 0.7-1.6 [place] 480482-07-25 02:20:00 Test Item Value Reference Range Interpretation Comments eGFR (test code = eGFR) 62 [facility] C[id number] 02:20:00 Test Item Value Reference Range Interpretation Comments WBC (test code = WBC) 8.6 3.7-10.4 [place] 325412-07-25 02:20:00 Test Item Value Reference Range Interpretation Comments RBC (test code = RBC) 3.58 4.20-5.40 [place] 325412-07-25 02:20:00 Test Item Value Reference Range Interpretation Comments Hgb (test code = Hgb) 8.8 12.0-16.0 [place] 325412-07-25 02:20:00 Test Item Value Reference Range Interpretation Comments Hct (test code = Hct) 27.1 36.0-48.0 [place] 325412-07-25 02:20:00 Test Item Value Reference Range Interpretation Comments MCV (test code = MCV) 75.6 80.0-98.0 [place] 325412-07-25 02:20:00 Test Item Value Reference Range Interpretation Comments MCH (test code = MCH) 24.5 pg 27.0-31.0 [place] 325412-07-25 02:20:00 Test Item Value Reference Range Interpretation Comments MCHC (test code = MCHC) 32.4 32.0-36.0 [place] 325412-07-25 02:20:00 Test Item Value Reference Range Interpretation Comments RDW (test code = RDW) 21.1 11.5-14.5 [place] 325412-07-25 02:20:00 Test Item Value Reference Range Interpretation Comments Platelet (test code = Platelet) 297 133-450 [facility] [id number] 02:20:00 Test Item Value Reference Range Interpretation Comments MPV (test code = MPV) 7.5 7.4-10.4 [place] 325412-07-25 02:20:00 Test Item Value Reference Range Interpretation Comments Segs (test code = Segs) 85.8 45.0-75.0 [place] 325412-07-25 02:20:00 Test Item Value Reference Range Interpretation Comments Lymphocytes (test code = Lymphocytes) 8.5 20.0-40.0 [place] 325412-07-25 02:20:00 Test Item Value Reference Range Interpretation Comments Monocytes (test code = Monocytes) 5.0 2.0-12.0 [facility] C[id number] 02:20:00 Test Item Value Reference Range Interpretation Comments Eosinophils (test code = 0.3 See_Comment [A utomated message] The Eosinophils) system which ge nerated this result tra nsmitted reference range : <=4.0. The reference r hugo was not used to int erpret this result as normal/abnormal . [place] 325412-07-25 02:20:00 Test Item Value Reference Range Interpretation Comments Basophils (test code = 0.4 See_Comment [Aut omated message] The Basophils) system which ge nerated this result tra nsmitted reference range : <=1.0. The reference r hugo was not used to int erpret this result as normal/abnormal . [place] 325412-07-25 02:20:00 Test Item Value Reference Range Interpretation Comments Neutrophils # (test code = Neutrophils 7.4 1.5-8.1 #) [place] 325412-07-25 02:20:00 Test Item Value Reference Range Interpretation Comments Lymphocytes # (test code = Lymphocytes 0.7 1.0-5.5 #) [facility] [id number] 02:20:00 Test Item Value Reference Range Interpretation Comments Monocytes # (test code 0.4 See_Comment [Aut omated message] The = Monocytes #) system which generated this result tra nsmitted reference range : <=0.8. The reference r hugo was not used to int erpret this result as normal/abnormal . [facility]AnokzsyPWFMHWDUBV4852-15-60 02:20:00 Test Item Value Reference Range Interpretation Comments Microcyte (test code = 1+ *ABN*(06/12/22 Microcyte) 9:20 PM) [facility] [id number] 02:20:00 Test Item Value Reference Range Interpretation Comments HS Troponin I (test code = HS Troponin 52 I) [facility]2022-07-25 02:20:00 Test Item Value Reference Range Interpretation Comments Glucose Lvl (test code = Glucose Lvl) 103 70-99 [facility]2022-07-25 02:20:00 Test Item Value Reference Range Interpretation Comments BUN (test code = BUN) 22 - [facility]2022-07-25 02:20:00 Test Item Value Reference Range Interpretation Comments Creatinine Lvl (test code = Creatinine 0.90 0.50-1.40 Lvl) [facility]2022-07-25 02:20:00 Test Item Value Reference Range Interpretation Comments Sodium Lvl (test code = Sodium Lvl) 131 135-145 [facility]2022-07-25 02:20:00 Test Item Value Reference Range Interpretation Comments Potassium Lvl (test code = Potassium 4.2 3.5-5.1 Lvl) [facility]2022-07-25 02:20:00 Test Item Value Reference Range Interpretation Comments Chloride Lvl (test code = Chloride Lvl) 97 95-109 [facility]2022-07-25 02:20:00 Test Item Value Reference Range Interpretation Comments CO2 (test code = CO2) 24-32 [facility]2022-07-25 02:20:00 Test Item Value Reference Range Interpretation Comments Calcium Lvl (test code = Calcium Lvl) 8.7 8.5-10.5 [facility]2022-07-25 02:20:00 Test Item Value Reference Range Interpretation Comments Total Protein (test code = Total 7.0 6.4-8.4 Protein) [facility] [id number] 02:20:00 Test Item Value Reference Range Interpretation Comments Albumin Lvl (test code = Albumin Lvl) 3.4 3.5-5.0 [facility] [id number] 02:20:00 Test Item Value Reference Range Interpretation Comments ALT (test code = ALT) 18 See_Comment [Auto mated message] The system which ge nerated this result transmit lavon reference range : <=65. The reference range was not used to interpr et this result as dionne l/abnormal. [facility] [id number] 02:20:00 Test Item Value Reference Range Interpretation Comments AST (test code = AST) 27 See_Comment [Auto mated message] The system which ge nerated this result transmit lavon reference range : <=37. The reference range was not used to interpr et this result as dionne l/abnormal. [facility] [id number] 02:20:00 Test Item Value Reference Range Interpretation Comments Alk Phos (test code = Alk Phos) 57 39-136 [facility] [id number] 02:20:00 Test Item Value Reference Range Interpretation Comments Bili Total (test code = Bili Total) 1.0 0.2-1.3 [facility] [id number] 02:20:00 Test Item Value Reference Range Interpretation Comments AGAP (test code = AGAP) 12.2 10.0-20.0 [facility] [id number] 02:20:00 Test Item Value Reference Range Interpretation Comments B/C Ratio (test code = B/C Ratio) 24 1 6-25 [facility] [id number] 02:20:00 Test Item Value Reference Range Interpretation Comments Globulin (test code = Globulin) 3.6 2.7-4.2 [facility] [id number] 02:20:00 Test Item Value Reference Range Interpretation Comments A/G Ratio (test code = A/G Ratio) 0.9 1 0.7-1.6 [facility] [id number] 02:20:00 Test Item Value Reference Range Interpretation Comments eGFR (test code = eGFR) 62 [facility] C[id number] 02:20:00 Test Item Value Reference Range Interpretation Comments WBC (test code = WBC) 8.6 3.7-10.4 [facility] [id number] 02:20:00 Test Item Value Reference Range Interpretation Comments RBC (test code = RBC) 3.58 4.20-5.40 [facility] CampusOlfqjkiDCVJTOOIUL1255-12-19 02:20:00 Test Item Value Reference Range Interpretation Comments Hgb (test code = Hgb) 8.8 12.0-16.0 [facility] [id number] 02:20:00 Test Item Value Reference Range Interpretation Comments Hct (test code = Hct) 27.1 36.0-48.0 [facility] [id number] 02:20:00 Test Item Value Reference Range Interpretation Comments MCV (test code = MCV) 75.6 80.0-98.0 [facility] CampusMmclshnEPHLJYLFUE3831-56-29 02:20:00 Test Item Value Reference Range Interpretation Comments MCH (test code = MCH) 24.5 pg 27.0-31.0 [facility] CampusRtqhuwjQKAUUHTBCJ8617-10-29 02:20:00 Test Item Value Reference Range Interpretation Comments MCHC (test code = MCHC) 32.4 32.0-36.0 [facility] CampusKqnbuutXNLQCBDTKM7754-24-42 02:20:00 Test Item Value Reference Range Interpretation Comments RDW (test code = RDW) 21.1 11.5-14.5 [facility] CampusFpwhuxiVVFLQFSLBD9298-67-01 02:20:00 Test Item Value Reference Range Interpretation Comments Platelet (test code = Platelet) 297 133-450 [facility] CampusOfbbtkuICSUDVDFFF0593-78-06 02:20:00 Test Item Value Reference Range Interpretation Comments MPV (test code = MPV) 7.5 7.4-10.4 [place] 325412-07-25 02:20:00 Test Item Value Reference Range Interpretation Comments Segs (test code = Segs) 85.8 45.0-75.0 [facility] CampusQbzabfbQIYKSFLNUL3268-47-61 02:20:00 Test Item Value Reference Range Interpretation Comments Lymphocytes (test code = Lymphocytes) 8.5 20.0-40.0 [place] 325412-07-25 02:20:00 Test Item Value Reference Range Interpretation Comments Monocytes (test code = Monocytes) 5.0 2.0-12.0 [facility] CampusGlrtsujSCWUVFYAJP9809-51-27 02:20:00 Test Item Value Reference Range Interpretation Comments Eosinophils (test code = 0.3 See_Comment [A utomated message] The Eosinophils) system which ge nerated this result tra nsmitted reference range : <=4.0. The reference r hugo was not used to int erpret this result as normal/abnormal . [facility] CampusYzheordLQSJOAQHZU0930-12-53 02:20:00 Test Item Value Reference Range Interpretation Comments Basophils (test code = 0.4 See_Comment [Aut omated message] The Basophils) system which ge nerated this result tra nsmitted reference range : <=1.0. The reference r hugo was not used to int erpret this result as normal/abnormal . [facility] CampusBqoftneEPUZIQYDKP7822-09-51 02:20:00 Test Item Value Reference Range Interpretation Comments Neutrophils # (test code = Neutrophils 7.4 1.5-8.1 #) [facility] CampusTllhituROZGBXXVJA7807-78-46 02:20:00 Test Item Value Reference Range Interpretation Comments Lymphocytes # (test code = Lymphocytes 0.7 1.0-5.5 #) [facility] CampusViuwvuzUHYARPJFKF1978-37-63 02:20:00 Test Item Value Reference Range Interpretation Comments Monocytes # (test code 0.4 See_Comment [Aut omated message] The = Monocytes #) system which generated this result tra nsmitted reference range : <=0.8. The reference r hugo was not used to int erpret this result as normal/abnormal . [facility] CampusVwboebdHWXOWDQNYH3389-90-16 02:20:00 Test Item Value Reference Range Interpretation Comments Microcyte (test code = 1+ *ABN*(06/12/22 Microcyte) 9:20 PM) [facility] [id number] 02:20:00 Test Item Value Reference Range Interpretation Comments HS Troponin I (test code = HS Troponin 52 I) [facility]2022-07-25 02:20:00 Test Item Value Reference Range Interpretation Comments Glucose Lvl (test code = Glucose Lvl) 103 70-99 [facility]2022-07-25 02:20:00 Test Item Value Reference Range Interpretation Comments BUN (test code = BUN) 22 7-22 [place] 480482-07-25 02:20:00 Test Item Value Reference Range Interpretation Comments Creatinine Lvl (test code = Creatinine 0.90 0.50-1.40 Lvl) [place] 480482-07-25 02:20:00 Test Item Value Reference Range Interpretation Comments Sodium Lvl (test code = Sodium Lvl) 131 135-145 [place] 480482-07-25 02:20:00 Test Item Value Reference Range Interpretation Comments Potassium Lvl (test code = Potassium 4.2 3.5-5.1 Lvl) [place] 480482-07-25 02:20:00 Test Item Value Reference Range Interpretation Comments Chloride Lvl (test code = Chloride Lvl) 97 95-109 [place] 480482-07-25 02:20:00 Test Item Value Reference Range Interpretation Comments CO2 (test code = CO2) 26 24-32 [place] 480482-07-25 02:20:00 Test Item Value Reference Range Interpretation Comments Calcium Lvl (test code = Calcium Lvl) 8.7 8.5-10.5 [place] 480482-07-25 02:20:00 Test Item Value Reference Range Interpretation Comments Total Protein (test code = Total 7.0 6.4-8.4 Protein) [place] 480482-07-25 02:20:00 Test Item Value Reference Range Interpretation Comments Albumin Lvl (test code = Albumin Lvl) 3.4 3.5-5.0 [place] 480482-07-25 02:20:00 Test Item Value Reference Range Interpretation Comments ALT (test code = ALT) 18 See_Comment [Auto mated message] The system which ge nerated this result transmit lavon reference range : <=65. The reference range was not used to interpr et this result as dionne l/abnormal. [place] [address]-07-25 02:20:00 Test Item Value Reference Range Interpretation Comments AST (test code = AST) 27 See_Comment [Auto mated message] The system which ge nerated this result transmit lavon reference range : <=37. The reference range was not used to interpr et this result as dionne l/abnormal. [place] 480482-07-25 02:20:00 Test Item Value Reference Range Interpretation Comments Alk Phos (test code = Alk Phos) 57 39-136 [place] 480482-07-25 02:20:00 Test Item Value Reference Range Interpretation Comments Bili Total (test code = Bili Total) 1.0 0.2-1.3 [place] 480482-07-25 02:20:00 Test Item Value Reference Range Interpretation Comments AGAP (test code = AGAP) 12.2 10.0-20.0 [place] 480482-07-25 02:20:00 Test Item Value Reference Range Interpretation Comments B/C Ratio (test code = B/C Ratio) 24 1 6-25 [place] 480482-07-25 02:20:00 Test Item Value Reference Range Interpretation Comments Globulin (test code = Globulin) 3.6 2.7-4.2 [place] 480482-07-25 02:20:00 Test Item Value Reference Range Interpretation Comments A/G Ratio (test code = A/G Ratio) 0.9 1 0.7-1.6 [place] 480482-07-25 02:20:00 Test Item Value Reference Range Interpretation Comments eGFR (test code = eGFR) 62 [place] 325412-07-25 02:20:00 Test Item Value Reference Range Interpretation Comments WBC (test code = WBC) 8.6 3.7-10.4 [place] 325412-07-25 02:20:00 Test Item Value Reference Range Interpretation Comments RBC (test code = RBC) 3.58 4.20-5.40 [place] 325412-07-25 02:20:00 Test Item Value Reference Range Interpretation Comments Hgb (test code = Hgb) 8.8 12.0-16.0 [place] [address]-07-25 02:20:00 Test Item Value Reference Range Interpretation Comments Hct (test code = Hct) 27.1 36.0-48.0 [place] 325412-07-25 02:20:00 Test Item Value Reference Range Interpretation Comments MCV (test code = MCV) 75.6 80.0-98.0 [place] 325412-07-25 02:20:00 Test Item Value Reference Range Interpretation Comments MCH (test code = MCH) 24.5 pg 27.0-31.0 [facility] CampusCmsinrdLOPZYHAJEQ9733-29-37 02:20:00 Test Item Value Reference Range Interpretation Comments MCHC (test code = MCHC) 32.4 32.0-36.0 [place] 325412-07-25 02:20:00 Test Item Value Reference Range Interpretation Comments RDW (test code = RDW) 21.1 11.5-14.5 [place] 325412-07-25 02:20:00 Test Item Value Reference Range Interpretation Comments Platelet (test code = Platelet) 297 133-450 [facility] CampusYekouguPXHQCBKJOC1959-03-75 02:20:00 Test Item Value Reference Range Interpretation Comments MPV (test code = MPV) 7.5 7.4-10.4 [place] 325412-07-25 02:20:00 Test Item Value Reference Range Interpretation Comments Segs (test code = Segs) 85.8 45.0-75.0 [place] 325412-07-25 02:20:00 Test Item Value Reference Range Interpretation Comments Lymphocytes (test code = Lymphocytes) 8.5 20.0-40.0 [place] 325412-07-25 02:20:00 Test Item Value Reference Range Interpretation Comments Monocytes (test code = Monocytes) 5.0 2.0-12.0 [facility] CampusFiueumeUNSFFVWSIM6540-36-58 02:20:00 Test Item Value Reference Range Interpretation Comments Eosinophils (test code = 0.3 See_Comment [A utomated message] The Eosinophils) system which ge nerated this result tra nsmitted reference range : <=4.0. The reference r hugo was not used to int erpret this result as normal/abnormal . [place] 325412-07-25 02:20:00 Test Item Value Reference Range Interpretation Comments Basophils (test code = 0.4 See_Comment [Aut omated message] The Basophils) system which ge nerated this result tra nsmitted reference range : <=1.0. The reference r hugo was not used to int erpret this result as normal/abnormal . [place] 325412-07-25 02:20:00 Test Item Value Reference Range Interpretation Comments Neutrophils # (test code = Neutrophils 7.4 1.5-8.1 #) [facility] CampusXfgiycuVGLRGRFEBU6671-65-91 02:20:00 Test Item Value Reference Range Interpretation Comments Lymphocytes # (test code = Lymphocytes 0.7 1.0-5.5 #) [facility] CampusBinpomhQSNGBPBPXG6616-43-60 02:20:00 Test Item Value Reference Range Interpretation Comments Monocytes # (test code 0.4 See_Comment [Aut omated message] The = Monocytes #) system which generated this result tra nsmitted reference range : <=0.8. The reference r hugo was not used to int erpret this result as normal/abnormal . [facility] CampusVgyakilNNPGOCQPXD0990-49-82 02:20:00 Test Item Value Reference Range Interpretation Comments Microcyte (test code = 1+ *ABN*(06/12/22 Microcyte) 9:20 PM) [facility]2022-07-25 02:20:00 Test Item Value Reference Range Interpretation Comments HS Troponin I (test code = HS Troponin 52 I) [facility]2022-07-25 02:20:00 Test Item Value Reference Range Interpretation Comments Glucose Lvl (test code = Glucose Lvl) 103 70-99 [facility]2022-07-25 02:20:00 Test Item Value Reference Range Interpretation Comments BUN (test code = BUN) 22 7-22 [facility]2022-07-25 02:20:00 Test Item Value Reference Range Interpretation Comments Creatinine Lvl (test code = Creatinine 0.90 0.50-1.40 Lvl) [facility]2022-07-25 02:20:00 Test Item Value Reference Range Interpretation Comments Sodium Lvl (test code = Sodium Lvl) 131 135-145 [facility]2022-07-25 02:20:00 Test Item Value Reference Range Interpretation Comments Potassium Lvl (test code = Potassium 4.2 3.5-5.1 Lvl) [facility]2022-07-25 02:20:00 Test Item Value Reference Range Interpretation Comments Chloride Lvl (test code = Chloride Lvl) 97 95-109 [facility]2022-07-25 02:20:00 Test Item Value Reference Range Interpretation Comments CO2 (test code = CO2) 26 24-32 [facility]2022-07-25 02:20:00 Test Item Value Reference Range Interpretation Comments Calcium Lvl (test code = Calcium Lvl) 8.7 8.5-10.5 [place] 480482-07-25 02:20:00 Test Item Value Reference Range Interpretation Comments Total Protein (test code = Total 7.0 6.4-8.4 Protein) [place] 480482-07-25 02:20:00 Test Item Value Reference Range Interpretation Comments Albumin Lvl (test code = Albumin Lvl) 3.4 3.5-5.0 [place] 480482-07-25 02:20:00 Test Item Value Reference Range Interpretation Comments ALT (test code = ALT) 18 See_Comment [Auto mated message] The system which ge nerated this result transmit lavon reference range : <=65. The reference range was not used to interpr et this result as dionne l/abnormal. [place] 480482-07-25 02:20:00 Test Item Value Reference Range Interpretation Comments AST (test code = AST) 27 See_Comment [Auto mated message] The system which ge nerated this result transmit lavon reference range : <=37. The reference range was not used to interpr et this result as dionne l/abnormal. [place] 480482-07-25 02:20:00 Test Item Value Reference Range Interpretation Comments Alk Phos (test code = Alk Phos) 57 39-136 [place] 480482-07-25 02:20:00 Test Item Value Reference Range Interpretation Comments Bili Total (test code = Bili Total) 1.0 0.2-1.3 [place] 480482-07-25 02:20:00 Test Item Value Reference Range Interpretation Comments AGAP (test code = AGAP) 12.2 10.0-20.0 [place] 480482-07-25 02:20:00 Test Item Value Reference Range Interpretation Comments B/C Ratio (test code = B/C Ratio) 24 1 6-25 [place] 480482-07-25 02:20:00 Test Item Value Reference Range Interpretation Comments Globulin (test code = Globulin) 3.6 2.7-4.2 [place] 480482-07-25 02:20:00 Test Item Value Reference Range Interpretation Comments A/G Ratio (test code = A/G Ratio) 0.9 1 0.7-1.6 [facility]2022-07-25 02:20:00 Test Item Value Reference Range Interpretation Comments eGFR (test code = eGFR) 62 [facility] CampusIfoebdiOEYHCTJMBP5587-62-28 02:20:00 Test Item Value Reference Range Interpretation Comments WBC (test code = WBC) 8.6 3.7-10.4 [facility] CampusLzazluvNBEWNGUOYD2345-02-92 02:20:00 Test Item Value Reference Range Interpretation Comments RBC (test code = RBC) 3.58 4.20-5.40 [facility] CampusMjkvibuOSMSDOQTVS3557-50-20 02:20:00 Test Item Value Reference Range Interpretation Comments Hgb (test code = Hgb) 8.8 12.0-16.0 [facility] CampusGlfomfkESDTGMKPMM5892-49-85 02:20:00 Test Item Value Reference Range Interpretation Comments Hct (test code = Hct) 27.1 36.0-48.0 [facility] CampusYmxyaiyDELILKPMQK7899-16-07 02:20:00 Test Item Value Reference Range Interpretation Comments MCV (test code = MCV) 75.6 80.0-98.0 [facility] CampusFvdggjfJLKWSFIYNC0468-58-86 02:20:00 Test Item Value Reference Range Interpretation Comments MCH (test code = MCH) 24.5 pg 27.0-31.0 [facility] CampusQifchcqXRNANUZBMG6753-00-34 02:20:00 Test Item Value Reference Range Interpretation Comments MCHC (test code = MCHC) 32.4 32.0-36.0 [facility] CampusPosnpkuIDHRPXVAZB1839-04-31 02:20:00 Test Item Value Reference Range Interpretation Comments RDW (test code = RDW) 21.1 11.5-14.5 [place] 325412-07-25 02:20:00 Test Item Value Reference Range Interpretation Comments Platelet (test code = Platelet) 297 133-450 [facility] CampusIkvrtqeELXRKTLDBC3947-70-87 02:20:00 Test Item Value Reference Range Interpretation Comments MPV (test code = MPV) 7.5 7.4-10.4 [facility] CampusYhrdybwKMFNYGHWVM8359-64-87 02:20:00 Test Item Value Reference Range Interpretation Comments Segs (test code = Segs) 85.8 45.0-75.0 [facility] CampusMrhqdpjGMGTGOZEFJ6865-45-56 02:20:00 Test Item Value Reference Range Interpretation Comments Lymphocytes (test code = Lymphocytes) 8.5 20.0-40.0 [facility]ABYGJEWPFS[facility]992[facility]-90 02:20:00 Test Item Value Reference Range Interpretation Comments Monocytes (test code = Monocytes) 5.0 2.0-12.0 [facility] CampusEebwwmrSHQYKHIHGC5494-35-34 02:20:00 Test Item Value Reference Range Interpretation Comments Eosinophils (test code = 0.3 See_Comment [A utomated message] The Eosinophils) system which ge nerated this result tra nsmitted reference range : <=4.0. The reference r hugo was not used to int erpret this result as normal/abnormal . [facility] CampusDccbjjcCYRNTGCSNW0548-12-63 02:20:00 Test Item Value Reference Range Interpretation Comments Basophils (test code = 0.4 See_Comment [Aut omated message] The Basophils) system which ge nerated this result tra nsmitted reference range : <=1.0. The reference r hugo was not used to int erpret this result as normal/abnormal . [facility] CampusHgzmymdCOTLHRZPKN3273-02-83 02:20:00 Test Item Value Reference Range Interpretation Comments Neutrophils # (test code = Neutrophils 7.4 1.5-8.1 #) [facility] CampusUstxaftSKXRCECWLC4598-11-37 02:20:00 Test Item Value Reference Range Interpretation Comments Lymphocytes # (test code = Lymphocytes 0.7 1.0-5.5 #) [facility] CampusFkiiebxMYKNWJBKNW7267-80-20 02:20:00 Test Item Value Reference Range Interpretation Comments Monocytes # (test code 0.4 See_Comment [Aut omated message] The = Monocytes #) system which generated this result tra nsmitted reference range : <=0.8. The reference r hugo was not used to int erpret this result as normal/abnormal . [facility] CampusPhwitqbDWSUBNCVIU8338-41-64 02:20:00 Test Item Value Reference Range Interpretation Comments Microcyte (test code = 1+ *ABN*(06/12/22 Microcyte) 9:20 PM) [facility] [id number] 02:20:00 Test Item Value Reference Range Interpretation Comments HS Troponin I (test code = HS Troponin 52 I) [facility] [id number] 02:20:00 Test Item Value Reference Range Interpretation Comments Glucose Lvl (test code = Glucose Lvl) 103 70-99 [place] 480482-07-25 02:20:00 Test Item Value Reference Range Interpretation Comments BUN (test code = BUN) 22 7-22 [place] 480482-07-25 02:20:00 Test Item Value Reference Range Interpretation Comments Creatinine Lvl (test code = Creatinine 0.90 0.50-1.40 Lvl) [place] 480482-07-25 02:20:00 Test Item Value Reference Range Interpretation Comments Sodium Lvl (test code = Sodium Lvl) 131 135-145 [place] 480482-07-25 02:20:00 Test Item Value Reference Range Interpretation Comments Potassium Lvl (test code = Potassium 4.2 3.5-5.1 Lvl) [place] 480482-07-25 02:20:00 Test Item Value Reference Range Interpretation Comments Chloride Lvl (test code = Chloride Lvl) 97 95-109 [place] 480482-07-25 02:20:00 Test Item Value Reference Range Interpretation Comments CO2 (test code = CO2) 26 24-32 [place] 480482-07-25 02:20:00 Test Item Value Reference Range Interpretation Comments Calcium Lvl (test code = Calcium Lvl) 8.7 8.5-10.5 [place] 480482-07-25 02:20:00 Test Item Value Reference Range Interpretation Comments Total Protein (test code = Total 7.0 6.4-8.4 Protein) [place] 480482-07-25 02:20:00 Test Item Value Reference Range Interpretation Comments Albumin Lvl (test code = Albumin Lvl) 3.4 3.5-5.0 [place] 480482-07-25 02:20:00 Test Item Value Reference Range Interpretation Comments ALT (test code = ALT) 18 See_Comment [Auto mated message] The system which ge nerated this result transmit lavon reference range : <=65. The reference range was not used to interpr et this result as dionne l/abnormal. [place] 480482-07-25 02:20:00 Test Item Value Reference Range Interpretation Comments AST (test code = AST) 27 See_Comment [Auto mated message] The system which ge nerated this result transmit lavon reference range : <=37. The reference range was not used to interpr et this result as dionne l/abnormal. [place] 480482-07-25 02:20:00 Test Item Value Reference Range Interpretation Comments Alk Phos (test code = Alk Phos) 57 39-136 [place] 480482-07-25 02:20:00 Test Item Value Reference Range Interpretation Comments Bili Total (test code = Bili Total) 1.0 0.2-1.3 [place] 480482-07-25 02:20:00 Test Item Value Reference Range Interpretation Comments AGAP (test code = AGAP) 12.2 10.0-20.0 [place] 480482-07-25 02:20:00 Test Item Value Reference Range Interpretation Comments B/C Ratio (test code = B/C Ratio) 24 1 6-25 [place] 480482-07-25 02:20:00 Test Item Value Reference Range Interpretation Comments Globulin (test code = Globulin) 3.6 2.7-4.2 [place] 480482-07-25 02:20:00 Test Item Value Reference Range Interpretation Comments A/G Ratio (test code = A/G Ratio) 0.9 1 0.7-1.6 [place] 480482-07-25 02:20:00 Test Item Value Reference Range Interpretation Comments eGFR (test code = eGFR) 62 [place] 325412-07-25 02:20:00 Test Item Value Reference Range Interpretation Comments WBC (test code = WBC) 8.6 3.7-10.4 [place] 325412-07-25 02:20:00 Test Item Value Reference Range Interpretation Comments RBC (test code = RBC) 3.58 4.20-5.40 [place] 325412-07-25 02:20:00 Test Item Value Reference Range Interpretation Comments Hgb (test code = Hgb) 8.8 12.0-16.0 [place] [address]-07-25 02:20:00 Test Item Value Reference Range Interpretation Comments Hct (test code = Hct) 27.1 36.0-48.0 [place] 325412-07-25 02:20:00 Test Item Value Reference Range Interpretation Comments MCV (test code = MCV) 75.6 80.0-98.0 [place] 325412-07-25 02:20:00 Test Item Value Reference Range Interpretation Comments MCH (test code = MCH) 24.5 pg 27.0-31.0 [place] 325412-07-25 02:20:00 Test Item Value Reference Range Interpretation Comments MCHC (test code = MCHC) 32.4 32.0-36.0 [place] 325412-07-25 02:20:00 Test Item Value Reference Range Interpretation Comments RDW (test code = RDW) 21.1 11.5-14.5 [place] 325412-07-25 02:20:00 Test Item Value Reference Range Interpretation Comments Platelet (test code = Platelet) 297 133-450 [place] 325412-07-25 02:20:00 Test Item Value Reference Range Interpretation Comments MPV (test code = MPV) 7.5 7.4-10.4 [place] 325412-07-25 02:20:00 Test Item Value Reference Range Interpretation Comments Segs (test code = Segs) 85.8 45.0-75.0 [place] 325412-07-25 02:20:00 Test Item Value Reference Range Interpretation Comments Lymphocytes (test code = Lymphocytes) 8.5 20.0-40.0 [place] 325412-07-25 02:20:00 Test Item Value Reference Range Interpretation Comments Monocytes (test code = Monocytes) 5.0 2.0-12.0 [place] 325412-07-25 02:20:00 Test Item Value Reference Range Interpretation Comments Eosinophils (test code = 0.3 See_Comment [A utomated message] The Eosinophils) system which ge nerated this result tra nsmitted reference range : <=4.0. The reference r hugo was not used to int erpret this result as normal/abnormal . [place] [address]-07-25 02:20:00 Test Item Value Reference Range Interpretation Comments Basophils (test code = 0.4 See_Comment [Aut omated message] The Basophils) system which ge nerated this result tra nsmitted reference range : <=1.0. The reference r hugo was not used to int erpret this result as normal/abnormal . [facility] CampusNqvewakHXGLNLNPHX7734-63-84 02:20:00 Test Item Value Reference Range Interpretation Comments Neutrophils # (test code = Neutrophils 7.4 1.5-8.1 #) [facility] CampusJhuyyrvKGCYGQPAMO8435-64-18 02:20:00 Test Item Value Reference Range Interpretation Comments Lymphocytes # (test code = Lymphocytes 0.7 1.0-5.5 #) [place] 325412-07-25 02:20:00 Test Item Value Reference Range Interpretation Comments Monocytes # (test code 0.4 See_Comment [Aut omated message] The = Monocytes #) system which generated this result tra nsmitted reference range : <=0.8. The reference r hugo was not used to int erpret this result as normal/abnormal . [facility] CampusFlidrszKIMMWQBDWQ9402-41-45 02:20:00 Test Item Value Reference Range Interpretation Comments Microcyte (test code = 1+ *ABN*(06/12/22 Microcyte) 9:20 PM) [facility]2022-07-25 02:20:00 Test Item Value Reference Range Interpretation Comments HS Troponin I (test code = HS Troponin 52 I) [facility]2022-07-25 02:20:00 Test Item Value Reference Range Interpretation Comments Glucose Lvl (test code = Glucose Lvl) 103 70-99 [facility]2022-07-25 02:20:00 Test Item Value Reference Range Interpretation Comments BUN (test code = BUN) 22 7-22 [facility]2022-07-25 02:20:00 Test Item Value Reference Range Interpretation Comments Creatinine Lvl (test code = Creatinine 0.90 0.50-1.40 Lvl) [facility]2022-07-25 02:20:00 Test Item Value Reference Range Interpretation Comments Sodium Lvl (test code = Sodium Lvl) 131 135-145 [facility]2022-07-25 02:20:00 Test Item Value Reference Range Interpretation Comments Potassium Lvl (test code = Potassium 4.2 3.5-5.1 Lvl) [facility]2022-07-25 02:20:00 Test Item Value Reference Range Interpretation Comments Chloride Lvl (test code = Chloride Lvl) 97 95-109 [facility]2022-07-25 02:20:00 Test Item Value Reference Range Interpretation Comments CO2 (test code = CO2) 26 24-32 [place] 480482-07-25 02:20:00 Test Item Value Reference Range Interpretation Comments Calcium Lvl (test code = Calcium Lvl) 8.7 8.5-10.5 [place] 480482-07-25 02:20:00 Test Item Value Reference Range Interpretation Comments Total Protein (test code = Total 7.0 6.4-8.4 Protein) [place] 480482-07-25 02:20:00 Test Item Value Reference Range Interpretation Comments Albumin Lvl (test code = Albumin Lvl) 3.4 3.5-5.0 [place] 480482-07-25 02:20:00 Test Item Value Reference Range Interpretation Comments ALT (test code = ALT) 18 See_Comment [Auto mated message] The system which ge nerated this result transmit lavon reference range : <=65. The reference range was not used to interpr et this result as dionne l/abnormal. [place] 480482-07-25 02:20:00 Test Item Value Reference Range Interpretation Comments AST (test code = AST) 27 See_Comment [Auto mated message] The system which ge nerated this result transmit lavon reference range : <=37. The reference range was not used to interpr et this result as dionne l/abnormal. [place] 480482-07-25 02:20:00 Test Item Value Reference Range Interpretation Comments Alk Phos (test code = Alk Phos) 57 39-136 [place] 480482-07-25 02:20:00 Test Item Value Reference Range Interpretation Comments Bili Total (test code = Bili Total) 1.0 0.2-1.3 [place] 480482-07-25 02:20:00 Test Item Value Reference Range Interpretation Comments AGAP (test code = AGAP) 12.2 10.0-20.0 [facility] [id number] 02:20:00 Test Item Value Reference Range Interpretation Comments B/C Ratio (test code = B/C Ratio) 24 1 6-25 [facility] [id number] 02:20:00 Test Item Value Reference Range Interpretation Comments Globulin (test code = Globulin) 3.6 2.7-4.2 [facility] [id number] 02:20:00 Test Item Value Reference Range Interpretation Comments A/G Ratio (test code = A/G Ratio) 0.9 1 0.7-1.6 [facility]2022-07-25 02:20:00 Test Item Value Reference Range Interpretation Comments eGFR (test code = eGFR) 62 [facility] [id number] 02:20:00 Test Item Value Reference Range Interpretation Comments WBC (test code = WBC) 8.6 3.7-10.4 [place] 325412-07-25 02:20:00 Test Item Value Reference Range Interpretation Comments RBC (test code = RBC) 3.58 4.20-5.40 [facility] CampusGjvenpgLTZJYXMARS6889-78-07 02:20:00 Test Item Value Reference Range Interpretation Comments Hgb (test code = Hgb) 8.8 12.0-16.0 [place] 325412-07-25 02:20:00 Test Item Value Reference Range Interpretation Comments Hct (test code = Hct) 27.1 36.0-48.0 [facility] CampusKdroemiUCKJNKRAMF1451-14-19 02:20:00 Test Item Value Reference Range Interpretation Comments MCV (test code = MCV) 75.6 80.0-98.0 [facility] CampusPpqnzvkJLVMATVUKY9517-21-21 02:20:00 Test Item Value Reference Range Interpretation Comments MCH (test code = MCH) 24.5 pg 27.0-31.0 [facility] CampusVmrfjbbAFDOTQRNLS8444-22-13 02:20:00 Test Item Value Reference Range Interpretation Comments MCHC (test code = MCHC) 32.4 32.0-36.0 [place] 325412-07-25 02:20:00 Test Item Value Reference Range Interpretation Comments RDW (test code = RDW) 21.1 11.5-14.5 [place] 325412-07-25 02:20:00 Test Item Value Reference Range Interpretation Comments Platelet (test code = Platelet) 297 133-450 [facility] [id number] 02:20:00 Test Item Value Reference Range Interpretation Comments MPV (test code = MPV) 7.5 7.4-10.4 [place] 325412-07-25 02:20:00 Test Item Value Reference Range Interpretation Comments Segs (test code = Segs) 85.8 45.0-75.0 [facility] CampusWfxlnufCDPQUDUECW9491-35-27 02:20:00 Test Item Value Reference Range Interpretation Comments Lymphocytes (test code = Lymphocytes) 8.5 20.0-40.0 [facility] CampusHexhboyYDRNBMAAKD8710-01-18 02:20:00 Test Item Value Reference Range Interpretation Comments Monocytes (test code = Monocytes) 5.0 2.0-12.0 [facility] CampusMcjgnvwRHSYWPDXSQ6059-89-49 02:20:00 Test Item Value Reference Range Interpretation Comments Eosinophils (test code = 0.3 See_Comment [A utomated message] The Eosinophils) system which ge nerated this result tra nsmitted reference range : <=4.0. The reference r hugo was not used to int erpret this result as normal/abnormal . [facility] [id number] 02:20:00 Test Item Value Reference Range Interpretation Comments Basophils (test code = 0.4 See_Comment [Aut omated message] The Basophils) system which ge nerated this result tra nsmitted reference range : <=1.0. The reference r hugo was not used to int erpret this result as normal/abnormal . [facility] CampusAazbduyMDPWDQGDDN0474-77-59 02:20:00 Test Item Value Reference Range Interpretation Comments Neutrophils # (test code = Neutrophils 7.4 1.5-8.1 #) [facility] CampusKcyeniqTGVRKVQRVV3825-42-43 02:20:00 Test Item Value Reference Range Interpretation Comments Lymphocytes # (test code = Lymphocytes 0.7 1.0-5.5 #) [facility] [id number] 02:20:00 Test Item Value Reference Range Interpretation Comments Monocytes # (test code 0.4 See_Comment [Aut omated message] The = Monocytes #) system which generated this result tra nsmitted reference range : <=0.8. The reference r hugo was not used to int erpret this result as normal/abnormal . [facility] CampusPkiuwjlLKAFDSJJJC9575-47-69 02:20:00 Test Item Value Reference Range Interpretation Comments Microcyte (test code = 1+ *ABN*(06/12/22 Microcyte) 9:20 PM) [facility]2022-07-25 02:20:00 Test Item Value Reference Range Interpretation Comments HS Troponin I (test code = HS Troponin 52 I) [facility]2022-07-25 02:20:00 Test Item Value Reference Range Interpretation Comments Glucose Lvl (test code = Glucose Lvl) 103 70-99 [facility]2022-07-25 02:20:00 Test Item Value Reference Range Interpretation Comments BUN (test code = BUN) 22 7-22 [facility]2022-07-25 02:20:00 Test Item Value Reference Range Interpretation Comments Creatinine Lvl (test code = Creatinine 0.90 0.50-1.40 Lvl) [facility]2022-07-25 02:20:00 Test Item Value Reference Range Interpretation Comments Sodium Lvl (test code = Sodium Lvl) 131 135-145 [facility]2022-07-25 02:20:00 Test Item Value Reference Range Interpretation Comments Potassium Lvl (test code = Potassium 4.2 3.5-5.1 Lvl) [facility]2022-07-25 02:20:00 Test Item Value Reference Range Interpretation Comments Chloride Lvl (test code = Chloride Lvl) 97 95-109 [facility]2022-07-25 02:20:00 Test Item Value Reference Range Interpretation Comments CO2 (test code = CO2) 26 24-32 [facility]2022-07-25 02:20:00 Test Item Value Reference Range Interpretation Comments Calcium Lvl (test code = Calcium Lvl) 8.7 8.5-10.5 [facility]2022-07-25 02:20:00 Test Item Value Reference Range Interpretation Comments Total Protein (test code = Total 7.0 6.4-8.4 Protein) [facility]2022-07-25 02:20:00 Test Item Value Reference Range Interpretation Comments Albumin Lvl (test code = Albumin Lvl) 3.4 3.5-5.0 [facility]2022-07-25 02:20:00 Test Item Value Reference Range Interpretation Comments ALT (test code = ALT) 18 See_Comment [Auto mated message] The system which ge nerated this result transmit lavon reference range : <=65. The reference range was not used to interpr et this result as dionne l/abnormal. [place] 480482-07-25 02:20:00 Test Item Value Reference Range Interpretation Comments AST (test code = AST) 27 See_Comment [Auto mated message] The system which ge nerated this result transmit lavon reference range : <=37. The reference range was not used to interpr et this result as dionne l/abnormal. [place] 480482-07-25 02:20:00 Test Item Value Reference Range Interpretation Comments Alk Phos (test code = Alk Phos) 57 39-136 [place] 480482-07-25 02:20:00 Test Item Value Reference Range Interpretation Comments Bili Total (test code = Bili Total) 1.0 0.2-1.3 [place] 480482-07-25 02:20:00 Test Item Value Reference Range Interpretation Comments AGAP (test code = AGAP) 12.2 10.0-20.0 [place] 480482-07-25 02:20:00 Test Item Value Reference Range Interpretation Comments B/C Ratio (test code = B/C Ratio) 24 1 6-25 [place] 480482-07-25 02:20:00 Test Item Value Reference Range Interpretation Comments Globulin (test code = Globulin) 3.6 2.7-4.2 [place] 480482-07-25 02:20:00 Test Item Value Reference Range Interpretation Comments A/G Ratio (test code = A/G Ratio) 0.9 1 0.7-1.6 [place] 480482-07-25 02:20:00 Test Item Value Reference Range Interpretation Comments eGFR (test code = eGFR) 62 [place] 325412-07-25 02:20:00 Test Item Value Reference Range Interpretation Comments WBC (test code = WBC) 8.6 3.7-10.4 [place] 325412-07-25 02:20:00 Test Item Value Reference Range Interpretation Comments RBC (test code = RBC) 3.58 4.20-5.40 [place] 325412-07-25 02:20:00 Test Item Value Reference Range Interpretation Comments Hgb (test code = Hgb) 8.8 12.0-16.0 [place] 325412-07-25 02:20:00 Test Item Value Reference Range Interpretation Comments Hct (test code = Hct) 27.1 36.0-48.0 [place] 325412-07-25 02:20:00 Test Item Value Reference Range Interpretation Comments MCV (test code = MCV) 75.6 80.0-98.0 [place] 325412-07-25 02:20:00 Test Item Value Reference Range Interpretation Comments MCH (test code = MCH) 24.5 pg 27.0-31.0 [place] 325412-07-25 02:20:00 Test Item Value Reference Range Interpretation Comments MCHC (test code = MCHC) 32.4 32.0-36.0 [place] 325412-07-25 02:20:00 Test Item Value Reference Range Interpretation Comments RDW (test code = RDW) 21.1 11.5-14.5 [place] 325412-07-25 02:20:00 Test Item Value Reference Range Interpretation Comments Platelet (test code = Platelet) 297 133-450 [facility] Camp[id number] 02:20:00 Test Item Value Reference Range Interpretation Comments MPV (test code = MPV) 7.5 7.4-10.4 [place] 325412-07-25 02:20:00 Test Item Value Reference Range Interpretation Comments Segs (test code = Segs) 85.8 45.0-75.0 [place] 325412-07-25 02:20:00 Test Item Value Reference Range Interpretation Comments Lymphocytes (test code = Lymphocytes) 8.5 20.0-40.0 [place] 325412-07-25 02:20:00 Test Item Value Reference Range Interpretation Comments Monocytes (test code = Monocytes) 5.0 2.0-12.0 [place] 325412-07-25 02:20:00 Test Item Value Reference Range Interpretation Comments Eosinophils (test code = 0.3 See_Comment [A utomated message] The Eosinophils) system which ge nerated this result tra nsmitted reference range : <=4.0. The reference r hugo was not used to int erpret this result as normal/abnormal . [place] 325412-07-25 02:20:00 Test Item Value Reference Range Interpretation Comments Basophils (test code = 0.4 See_Comment [Aut omated message] The Basophils) system which ge nerated this result tra nsmitted reference range : <=1.0. The reference r hugo was not used to int erpret this result as normal/abnormal . [facility] C[id number] 02:20:00 Test Item Value Reference Range Interpretation Comments Neutrophils # (test code = Neutrophils 7.4 1.5-8.1 #) [facility] CampusDbfnanxTZTLFKHRRH6432-99-29 02:20:00 Test Item Value Reference Range Interpretation Comments Lymphocytes # (test code = Lymphocytes 0.7 1.0-5.5 #) [facility] CampusMyhkwjtGXBJYCTRJD7984-38-97 02:20:00 Test Item Value Reference Range Interpretation Comments Monocytes # (test code 0.4 See_Comment [Aut omated message] The = Monocytes #) system which generated this result tra nsmitted reference range : <=0.8. The reference r hugo was not used to int erpret this result as normal/abnormal . [facility] CampusVwyhsunQNCLAXQLQB2267-85-12 02:20:00 Test Item Value Reference Range Interpretation Comments Microcyte (test code = 1+ *ABN*(06/12/22 Microcyte) 9:20 PM) [facility] [id number] 02:20:00 Test Item Value Reference Range Interpretation Comments HS Troponin I (test code = HS Troponin 52 I) [facility]2022-07-25 02:20:00 Test Item Value Reference Range Interpretation Comments Glucose Lvl (test code = Glucose Lvl) 103 70-99 [facility]2022-07-25 02:20:00 Test Item Value Reference Range Interpretation Comments BUN (test code = BUN) 22 7-22 [facility]2022-07-25 02:20:00 Test Item Value Reference Range Interpretation Comments Creatinine Lvl (test code = Creatinine 0.90 0.50-1.40 Lvl) [facility]2022-07-25 02:20:00 Test Item Value Reference Range Interpretation Comments Sodium Lvl (test code = Sodium Lvl) 131 135-145 [facility]2022-07-25 02:20:00 Test Item Value Reference Range Interpretation Comments Potassium Lvl (test code = Potassium 4.2 3.5-5.1 Lvl) [place] 480482-07-25 02:20:00 Test Item Value Reference Range Interpretation Comments Chloride Lvl (test code = Chloride Lvl) 97 95-109 [place] 480482-07-25 02:20:00 Test Item Value Reference Range Interpretation Comments CO2 (test code = CO2) 26 24-32 [place] 480482-07-25 02:20:00 Test Item Value Reference Range Interpretation Comments Calcium Lvl (test code = Calcium Lvl) 8.7 8.5-10.5 [facility] [id number] 02:20:00 Test Item Value Reference Range Interpretation Comments Total Protein (test code = Total 7.0 6.4-8.4 Protein) [place] 480482-07-25 02:20:00 Test Item Value Reference Range Interpretation Comments Albumin Lvl (test code = Albumin Lvl) 3.4 3.5-5.0 [place] 480482-07-25 02:20:00 Test Item Value Reference Range Interpretation Comments ALT (test code = ALT) 18 See_Comment [Auto mated message] The system which ge nerated this result transmit lavon reference range : <=65. The reference range was not used to interpr et this result as dionne l/abnormal. [facility] [id number] 02:20:00 Test Item Value Reference Range Interpretation Comments AST (test code = AST) 27 See_Comment [Auto mated message] The system which ge nerated this result transmit lavon reference range : <=37. The reference range was not used to interpr et this result as dionne l/abnormal. [facility] [id number] 02:20:00 Test Item Value Reference Range Interpretation Comments Alk Phos (test code = Alk Phos) 57 39-136 [facility] [id number] 02:20:00 Test Item Value Reference Range Interpretation Comments Bili Total (test code = Bili Total) 1.0 0.2-1.3 [place] 480482-07-25 02:20:00 Test Item Value Reference Range Interpretation Comments AGAP (test code = AGAP) 12.2 10.0-20.0 [facility] [id number] 02:20:00 Test Item Value Reference Range Interpretation Comments B/C Ratio (test code = B/C Ratio) 24 1 6-25 [facility]2022-07-25 02:20:00 Test Item Value Reference Range Interpretation Comments Globulin (test code = Globulin) 3.6 2.7-4.2 [facility]2022-07-25 02:20:00 Test Item Value Reference Range Interpretation Comments A/G Ratio (test code = A/G Ratio) 0.9 1 0.7-1.6 [facility]2022-07-25 02:20:00 Test Item Value Reference Range Interpretation Comments eGFR (test code = eGFR) 62 [facility] C[id number] 02:20:00 Test Item Value Reference Range Interpretation Comments WBC (test code = WBC) 8.6 3.7-10.4 [facility] CampusCnghploPYAVEHHNQF9144-74-81 02:20:00 Test Item Value Reference Range Interpretation Comments RBC (test code = RBC) 3.58 4.20-5.40 [facility] CampusUazubkjRFNQMAWGVE5972-01-30 02:20:00 Test Item Value Reference Range Interpretation Comments Hgb (test code = Hgb) 8.8 12.0-16.0 [facility] [id number] 02:20:00 Test Item Value Reference Range Interpretation Comments Hct (test code = Hct) 27.1 36.0-48.0 [facility] CampusDwzphybCDOZJWQUAM5948-10-99 02:20:00 Test Item Value Reference Range Interpretation Comments MCV (test code = MCV) 75.6 80.0-98.0 [facility] CampusYiozezmALWRDGVXTZ4106-50-50 02:20:00 Test Item Value Reference Range Interpretation Comments MCH (test code = MCH) 24.5 pg 27.0-31.0 [facility] CampusHsmujmdDDHSNHSLBJ2731-19-29 02:20:00 Test Item Value Reference Range Interpretation Comments MCHC (test code = MCHC) 32.4 32.0-36.0 [facility] C[id number] 02:20:00 Test Item Value Reference Range Interpretation Comments RDW (test code = RDW) 21.1 11.5-14.5 [facility] [id number] 02:20:00 Test Item Value Reference Range Interpretation Comments Platelet (test code = Platelet) 297 133-450 [facility] C[id number] 02:20:00 Test Item Value Reference Range Interpretation Comments MPV (test code = MPV) 7.5 7.4-10.4 [facility] [id number] 02:20:00 Test Item Value Reference Range Interpretation Comments Segs (test code = Segs) 85.8 45.0-75.0 [facility] CampusQqnlsunRZROBFYVYU8767-80-06 02:20:00 Test Item Value Reference Range Interpretation Comments Lymphocytes (test code = Lymphocytes) 8.5 20.0-40.0 [place] 325412-07-25 02:20:00 Test Item Value Reference Range Interpretation Comments Monocytes (test code = Monocytes) 5.0 2.0-12.0 [facility] [id number] 02:20:00 Test Item Value Reference Range Interpretation Comments Eosinophils (test code = 0.3 See_Comment [A utomated message] The Eosinophils) system which ge nerated this result tra nsmitted reference range : <=4.0. The reference r hugo was not used to int erpret this result as normal/abnormal . [facility] [id number] 02:20:00 Test Item Value Reference Range Interpretation Comments Basophils (test code = 0.4 See_Comment [Aut omated message] The Basophils) system which ge nerated this result tra nsmitted reference range : <=1.0. The reference r hugo was not used to int erpret this result as normal/abnormal . [facility] C[id number] 02:20:00 Test Item Value Reference Range Interpretation Comments Neutrophils # (test code = Neutrophils 7.4 1.5-8.1 #) [facility] [id number] 02:20:00 Test Item Value Reference Range Interpretation Comments Lymphocytes # (test code = Lymphocytes 0.7 1.0-5.5 #) [place] 325412-07-25 02:20:00 Test Item Value Reference Range Interpretation Comments Monocytes # (test code 0.4 See_Comment [Aut omated message] The = Monocytes #) system which generated this result tra nsmitted reference range : <=0.8. The reference r hugo was not used to int erpret this result as normal/abnormal . [place] 325412-07-25 02:20:00 Test Item Value Reference Range Interpretation Comments Microcyte (test code = 1+ *ABN*(06/12/22 Microcyte) 9:20 PM) [facility] [id number] 02:20:00 Test Item Value Reference Range Interpretation Comments HS Troponin I (test code = HS Troponin 52 I) [facility] [id number] 02:20:00 Test Item Value Reference Range Interpretation Comments Glucose Lvl (test code = Glucose Lvl) 103 70-99 [facility]2022-07-25 02:20:00 Test Item Value Reference Range Interpretation Comments BUN (test code = BUN) 22 - [facility]2022-07-25 02:20:00 Test Item Value Reference Range Interpretation Comments Creatinine Lvl (test code = Creatinine 0.90 0.50-1.40 Lvl) [facility]2022-07-25 02:20:00 Test Item Value Reference Range Interpretation Comments Sodium Lvl (test code = Sodium Lvl) 131 135-145 [facility]2022-07-25 02:20:00 Test Item Value Reference Range Interpretation Comments Potassium Lvl (test code = Potassium 4.2 3.5-5.1 Lvl) [facility]2022-07-25 02:20:00 Test Item Value Reference Range Interpretation Comments Chloride Lvl (test code = Chloride Lvl) 97 95-109 [facility]2022-07-25 02:20:00 Test Item Value Reference Range Interpretation Comments CO2 (test code = CO2) 26 24-32 [facility]2022-07-25 02:20:00 Test Item Value Reference Range Interpretation Comments Calcium Lvl (test code = Calcium Lvl) 8.7 8.5-10.5 [facility]2022-07-25 02:20:00 Test Item Value Reference Range Interpretation Comments Total Protein (test code = Total 7.0 6.4-8.4 Protein) [facility]2022-07-25 02:20:00 Test Item Value Reference Range Interpretation Comments Albumin Lvl (test code = Albumin Lvl) 3.4 3.5-5.0 [facility]2022-07-25 02:20:00 Test Item Value Reference Range Interpretation Comments ALT (test code = ALT) 18 See_Comment [Auto mated message] The system which ge nerated this result transmit lavon reference range : <=65. The reference range was not used to interpr et this result as dionne l/abnormal. [facility] [id number] 02:20:00 Test Item Value Reference Range Interpretation Comments AST (test code = AST) 27 See_Comment [Auto mated message] The system which ge nerated this result transmit lavon reference range : <=37. The reference range was not used to interpr et this result as dionne l/abnormal. [facility] [id number] 02:20:00 Test Item Value Reference Range Interpretation Comments Alk Phos (test code = Alk Phos) 57 39-136 [facility] [id number] 02:20:00 Test Item Value Reference Range Interpretation Comments Bili Total (test code = Bili Total) 1.0 0.2-1.3 [place] [facility] [id number] 02:20:00 Test Item Value Reference Range Interpretation Comments AGAP (test code = AGAP) 12.2 10.0-20.0 [facility] [id number] 02:20:00 Test Item Value Reference Range Interpretation Comments B/C Ratio (test code = B/C Ratio) 24 1 6-25 [facility] [id number] 02:20:00 Test Item Value Reference Range Interpretation Comments Globulin (test code = Globulin) 3.6 2.7-4.2 [facility] [id number] 02:20:00 Test Item Value Reference Range Interpretation Comments A/G Ratio (test code = A/G Ratio) 0.9 1 0.7-1.6 [facility] [id number] 02:20:00 Test Item Value Reference Range Interpretation Comments eGFR (test code = eGFR) 62 [place] 325412-07-25 02:20:00 Test Item Value Reference Range Interpretation Comments WBC (test code = WBC) 8.6 3.7-10.4 [place] [address]-07-25 02:20:00 Test Item Value Reference Range Interpretation Comments RBC (test code = RBC) 3.58 4.20-5.40 [place] 325412-07-25 02:20:00 Test Item Value Reference Range Interpretation Comments Hgb (test code = Hgb) 8.8 12.0-16.0 [place] 325412-07-25 02:20:00 Test Item Value Reference Range Interpretation Comments Hct (test code = Hct) 27.1 36.0-48.0 [place] 325412-07-25 02:20:00 Test Item Value Reference Range Interpretation Comments MCV (test code = MCV) 75.6 80.0-98.0 [place] 325412-07-25 02:20:00 Test Item Value Reference Range Interpretation Comments MCH (test code = MCH) 24.5 pg 27.0-31.0 [place] 325412-07-25 02:20:00 Test Item Value Reference Range Interpretation Comments MCHC (test code = MCHC) 32.4 32.0-36.0 [place] 325412-07-25 02:20:00 Test Item Value Reference Range Interpretation Comments RDW (test code = RDW) 21.1 11.5-14.5 [place] 325412-07-25 02:20:00 Test Item Value Reference Range Interpretation Comments Platelet (test code = Platelet) 297 133-450 [facility] CampusOsthpvfEJILIOBWNA0368-89-94 02:20:00 Test Item Value Reference Range Interpretation Comments MPV (test code = MPV) 7.5 7.4-10.4 [place] 325412-07-25 02:20:00 Test Item Value Reference Range Interpretation Comments Segs (test code = Segs) 85.8 45.0-75.0 [place] 325412-07-25 02:20:00 Test Item Value Reference Range Interpretation Comments Lymphocytes (test code = Lymphocytes) 8.5 20.0-40.0 [place] 325412-07-25 02:20:00 Test Item Value Reference Range Interpretation Comments Monocytes (test code = Monocytes) 5.0 2.0-12.0 [place] [address]-07-25 02:20:00 Test Item Value Reference Range Interpretation Comments Eosinophils (test code = 0.3 See_Comment [A utomated message] The Eosinophils) system which ge nerated this result tra nsmitted reference range : <=4.0. The reference r hugo was not used to int erpret this result as normal/abnormal . [facility] Hos[id number] 02:20:00 Test Item Value Reference Range Interpretation Comments Basophils (test code = 0.4 See_Comment [Aut omated message] The Basophils) system which ge nerated this result tra nsmitted reference range : <=1.0. The reference r hugo was not used to int erpret this result as normal/abnormal . [id number] 02:20:00 Test Item Value Reference Range Interpretation Comments Neutrophils # (test code = Neutrophils 7.4 1.5-8.1 #) [facility] HospitalYpxuzimEOXZPXKWLN2576-52-73 02:20:00 Test Item Value Reference Range Interpretation Comments Lymphocytes # (test code = Lymphocytes 0.7 1.0-5.5 #) [facility] HospitalR[id number] 02:20:00 Test Item Value Reference Range Interpretation Comments Monocytes # (test code 0.4 See_Comment [Aut omated message] The = Monocytes #) system which generated this result tra nsmitted reference range : <=0.8. The reference r hugo was not used to int erpret this result as normal/abnormal . [facility] Hos[id number] 02:20:00 Test Item Value Reference Range Interpretation Comments Microcyte (test code = 1+ *ABN*(06/12/22 Microcyte) 9:20 PM) [facility] [id number] 02:20:00 Test Item Value Reference Range Interpretation Comments HS Troponin I (test code = HS Troponin 52 I) [facility] [id number] 02:20:00 Test Item Value Reference Range Interpretation Comments Glucose Lvl (test code = Glucose Lvl) 103 70-99 [facility] [id number] 02:20:00 Test Item Value Reference Range Interpretation Comments BUN (test code = BUN) 22 - [facility] [id number] 02:20:00 Test Item Value Reference Range Interpretation Comments Creatinine Lvl (test code = Creatinine 0.90 0.50-1.40 Lvl) [facility] [id number] 02:20:00 Test Item Value Reference Range Interpretation Comments Sodium Lvl (test code = Sodium Lvl) 131 135-145 [facility] [place] 736222-07-25 02:20:00 Test Item Value Reference Range Interpretation Comments Potassium Lvl (test code = Potassium 4.2 3.5-5.1 Lvl) [place] 480482-07-25 02:20:00 Test Item Value Reference Range Interpretation Comments Chloride Lvl (test code = Chloride Lvl) 97 95-109 [place] 480482-07-25 02:20:00 Test Item Value Reference Range Interpretation Comments CO2 (test code = CO2) 26 24-32 [place] 480482-07-25 02:20:00 Test Item Value Reference Range Interpretation Comments Calcium Lvl (test code = Calcium Lvl) 8.7 8.5-10.5 [place] 480482-07-25 02:20:00 Test Item Value Reference Range Interpretation Comments Total Protein (test code = Total 7.0 6.4-8.4 Protein) [place] 480482-07-25 02:20:00 Test Item Value Reference Range Interpretation Comments Albumin Lvl (test code = Albumin Lvl) 3.4 3.5-5.0 [place] 480482-07-25 02:20:00 Test Item Value Reference Range Interpretation Comments ALT (test code = ALT) 18 See_Comment [Auto mated message] The system which ge nerated this result transmit lavon reference range : <=65. The reference range was not used to interpr et this result as dionne l/abnormal. [place] 480482-07-25 02:20:00 Test Item Value Reference Range Interpretation Comments AST (test code = AST) 27 See_Comment [Auto mated message] The system which ge nerated this result transmit lavon reference range : <=37. The reference range was not used to interpr et this result as dionne l/abnormal. [place] 480482-07-25 02:20:00 Test Item Value Reference Range Interpretation Comments Alk Phos (test code = Alk Phos) 57 39-136 [place] 480482-07-25 02:20:00 Test Item Value Reference Range Interpretation Comments Bili Total (test code = Bili Total) 1.0 0.2-1.3 [place] [address]-07-25 02:20:00 Test Item Value Reference Range Interpretation Comments AGAP (test code = AGAP) 12.2 10.0-20.0 [facility]2022-07-25 02:20:00 Test Item Value Reference Range Interpretation Comments B/C Ratio (test code = B/C Ratio) 24 1 6-25 [facility] [id number] 02:20:00 Test Item Value Reference Range Interpretation Comments Globulin (test code = Globulin) 3.6 2.7-4.2 [facility]2022-07-25 02:20:00 Test Item Value Reference Range Interpretation Comments A/G Ratio (test code = A/G Ratio) 0.9 1 0.7-1.6 [facility]2022-07-25 02:20:00 Test Item Value Reference Range Interpretation Comments eGFR (test code = eGFR) 62 [facility] CampusYacnrxgIUSJWEYPJH4716-43-75 02:20:00 Test Item Value Reference Range Interpretation Comments WBC (test code = WBC) 8.6 3.7-10.4 [facility] CampusJkoyfgyXEJBDIQZPP9171-12-61 02:20:00 Test Item Value Reference Range Interpretation Comments RBC (test code = RBC) 3.58 4.20-5.40 [facility] CampusFcyrjjzAYADCTQMPS6617-76-97 02:20:00 Test Item Value Reference Range Interpretation Comments Hgb (test code = Hgb) 8.8 12.0-16.0 [facility] CampusYorwyahMQDHPJIZMC3828-15-71 02:20:00 Test Item Value Reference Range Interpretation Comments Hct (test code = Hct) 27.1 36.0-48.0 [facility] CampusWhevxdxFNYEIOKHLV1013-74-65 02:20:00 Test Item Value Reference Range Interpretation Comments MCV (test code = MCV) 75.6 80.0-98.0 [place] 325412-07-25 02:20:00 Test Item Value Reference Range Interpretation Comments MCH (test code = MCH) 24.5 pg 27.0-31.0 [place] 325412-07-25 02:20:00 Test Item Value Reference Range Interpretation Comments MCHC (test code = MCHC) 32.4 32.0-36.0 [facility] CampusSjqwgpzLJGMODLMCW2773-48-06 02:20:00 Test Item Value Reference Range Interpretation Comments RDW (test code = RDW) 21.1 11.5-14.5 [place] 325412-07-25 02:20:00 Test Item Value Reference Range Interpretation Comments Platelet (test code = Platelet) 297 133-450 [place] 325412-07-25 02:20:00 Test Item Value Reference Range Interpretation Comments MPV (test code = MPV) 7.5 7.4-10.4 [place] 325412-07-25 02:20:00 Test Item Value Reference Range Interpretation Comments Segs (test code = Segs) 85.8 45.0-75.0 [place] 325412-07-25 02:20:00 Test Item Value Reference Range Interpretation Comments Lymphocytes (test code = Lymphocytes) 8.5 20.0-40.0 [place] 325412-07-25 02:20:00 Test Item Value Reference Range Interpretation Comments Monocytes (test code = Monocytes) 5.0 2.0-12.0 [facility] CampusUbmsqziAPGURXUUPM4469-14-18 02:20:00 Test Item Value Reference Range Interpretation Comments Eosinophils (test code = 0.3 See_Comment [A utomated message] The Eosinophils) system which ge nerated this result tra nsmitted reference range : <=4.0. The reference r hugo was not used to int erpret this result as normal/abnormal . [place] 325412-07-25 02:20:00 Test Item Value Reference Range Interpretation Comments Basophils (test code = 0.4 See_Comment [Aut omated message] The Basophils) system which ge nerated this result tra nsmitted reference range : <=1.0. The reference r hugo was not used to int erpret this result as normal/abnormal . [facility] CampusNrjxcynFQBJTXWRRZ4729-91-31 02:20:00 Test Item Value Reference Range Interpretation Comments Neutrophils # (test code = Neutrophils 7.4 1.5-8.1 #) [place] 325412-07-25 02:20:00 Test Item Value Reference Range Interpretation Comments Lymphocytes # (test code = Lymphocytes 0.7 1.0-5.5 #) [place] 325412-07-25 02:20:00 Test Item Value Reference Range Interpretation Comments Monocytes # (test code 0.4 See_Comment [Aut omated message] The = Monocytes #) system which generated this result tra nsmitted reference range : <=0.8. The reference r hugo was not used to int erpret this result as normal/abnormal . [facility]WpruhwwYSFYIGUYEK0257-77-80 02:20:00 Test Item Value Reference Range Interpretation Comments Microcyte (test code = 1+ *ABN*(06/12/22 Microcyte) 9:20 PM) [facility]CARD[facility] [id number] 02:20:00 Test Item Value Reference Range Interpretation Comments HS Troponin I (test code = HS Troponin 52 I) [facility] [id number] 02:20:00 Test Item Value Reference Range Interpretation Comments Glucose Lvl (test code = Glucose Lvl) 103 70-99 [facility]2022-07-25 02:20:00 Test Item Value Reference Range Interpretation Comments BUN (test code = BUN) 22 06-10 [facility]2022-07-25 02:20:00 Test Item Value Reference Range Interpretation Comments Creatinine Lvl (test code = Creatinine 0.90 0.50-1.40 Lvl) [facility]2022-07-25 02:20:00 Test Item Value Reference Range Interpretation Comments Sodium Lvl (test code = Sodium Lvl) 131 135-145 [facility]2022-07-25 02:20:00 Test Item Value Reference Range Interpretation Comments Potassium Lvl (test code = Potassium 4.2 3.5-5.1 Lvl) [facility]2022-07-25 02:20:00 Test Item Value Reference Range Interpretation Comments Chloride Lvl (test code = Chloride Lvl) 97 95-109 [facility]2022-07-25 02:20:00 Test Item Value Reference Range Interpretation Comments CO2 (test code = CO2) 24-32 [facility]2022-07-25 02:20:00 Test Item Value Reference Range Interpretation Comments Calcium Lvl (test code = Calcium Lvl) 8.7 8.5-10.5 [facility]2022-07-25 02:20:00 Test Item Value Reference Range Interpretation Comments Total Protein (test code = Total 7.0 6.4-8.4 Protein) [facility]2022-07-25 02:20:00 Test Item Value Reference Range Interpretation Comments Albumin Lvl (test code = Albumin Lvl) 3.4 3.5-5.0 [facility] [id number] 02:20:00 Test Item Value Reference Range Interpretation Comments ALT (test code = ALT) 18 See_Comment [Auto mated message] The system which ge nerated this result transmit lavon reference range : <=65. The reference range was not used to interpr et this result as dionne l/abnormal. [facility] [employer] [id number] 02:20:00 Test Item Value Reference Range Interpretation Comments AST (test code = AST) 27 See_Comment [Auto mated message] The system which ge nerated this result transmit lavon reference range : <=37. The reference range was not used to interpr et this result as dionne l/abnormal. [facility] [employer] [id number] 02:20:00 Test Item Value Reference Range Interpretation Comments Alk Phos (test code = Alk Phos) 57 39-136 [facility] [id number] 02:20:00 Test Item Value Reference Range Interpretation Comments Bili Total (test code = Bili Total) 1.0 0.2-1.3 [facility] [id number] 02:20:00 Test Item Value Reference Range Interpretation Comments AGAP (test code = AGAP) 12.2 10.0-20.0 [facility] [employer] [id number] 02:20:00 Test Item Value Reference Range Interpretation Comments B/C Ratio (test code = B/C Ratio) 24 1 6-25 [facility] [id number] 02:20:00 Test Item Value Reference Range Interpretation Comments Globulin (test code = Globulin) 3.6 2.7-4.2 [facility] [employer] [id number] 02:20:00 Test Item Value Reference Range Interpretation Comments A/G Ratio (test code = A/G Ratio) 0.9 1 0.7-1.6 [facility] [employer] [id number] 02:20:00 Test Item Value Reference Range Interpretation Comments eGFR (test code = eGFR) 62 [facility] CenterMvcjrywEKKMLWDTAY4747-18-13 02:20:00 Test Item Value Reference Range Interpretation Comments WBC (test code = WBC) 8.6 3.7-10.4 [facility] CenterJzlnrvuDWWKYFZHHI4897-07-52 02:20:00 Test Item Value Reference Range Interpretation Comments RBC (test code = RBC) 3.58 4.20-5.40 [facility]BtfwjshXRXMMPGLSN3375-14-93 02:20:00 Test Item Value Reference Range Interpretation Comments Hgb (test code = Hgb) 8.8 12.0-16.0 [facility] HospitalLzyxkrcCVCZQFFPDE8692-01-39 02:20:00 Test Item Value Reference Range Interpretation Comments Hct (test code = Hct) 27.1 36.0-48.0 [facility] HospitalOlaauaiZXZAHZEQSC9037-31-16 02:20:00 Test Item Value Reference Range Interpretation Comments MCV (test code = MCV) 75.6 80.0-98.0 [facility] HospitalTrkvyoeZEBOYMOUXQ5128-16-51 02:20:00 Test Item Value Reference Range Interpretation Comments MCH (test code = MCH) 24.5 pg 27.0-31.0 [facility] HospitalMbnnrvxDCHSXEICEV0327-48-44 02:20:00 Test Item Value Reference Range Interpretation Comments MCHC (test code = MCHC) 32.4 32.0-36.0 [facility] HospitalEowelmfTBGFYWFKMS8237-59-59 02:20:00 Test Item Value Reference Range Interpretation Comments RDW (test code = RDW) 21.1 11.5-14.5 [facility] HospitalVszgzsmXLUOOGFPFK1532-19-02 02:20:00 Test Item Value Reference Range Interpretation Comments Platelet (test code = Platelet) 297 133-450 [facility] CampusPwyafrhBTXOPREREZ3646-36-54 02:20:00 Test Item Value Reference Range Interpretation Comments MPV (test code = MPV) 7.5 7.4-10.4 [facility] CampusGiqlgwePSBNVFYHQH3607-26-54 02:20:00 Test Item Value Reference Range Interpretation Comments Segs (test code = Segs) 85.8 45.0-75.0 [facility] [id number] 02:20:00 Test Item Value Reference Range Interpretation Comments HS Troponin I (test code = HS Troponin 52 I) [facility] [id number] 02:20:00 Test Item Value Reference Range Interpretation Comments Glucose Lvl (test code = Glucose Lvl) 103 70-99 [facility] [id number] 02:20:00 Test Item Value Reference Range Interpretation Comments BUN (test code = BUN) 22 7-22 [place] 480482-07-25 02:20:00 Test Item Value Reference Range Interpretation Comments Creatinine Lvl (test code = Creatinine 0.90 0.50-1.40 Lvl) [place] 480482-07-25 02:20:00 Test Item Value Reference Range Interpretation Comments Sodium Lvl (test code = Sodium Lvl) 131 135-145 [place] 480482-07-25 02:20:00 Test Item Value Reference Range Interpretation Comments Potassium Lvl (test code = Potassium 4.2 3.5-5.1 Lvl) [place] 480482-07-25 02:20:00 Test Item Value Reference Range Interpretation Comments Chloride Lvl (test code = Chloride Lvl) 97 95-109 [place] 480482-07-25 02:20:00 Test Item Value Reference Range Interpretation Comments CO2 (test code = CO2) 26 24-32 [place] 480482-07-25 02:20:00 Test Item Value Reference Range Interpretation Comments Calcium Lvl (test code = Calcium Lvl) 8.7 8.5-10.5 [place] 480482-07-25 02:20:00 Test Item Value Reference Range Interpretation Comments Total Protein (test code = Total 7.0 6.4-8.4 Protein) [place] 480482-07-25 02:20:00 Test Item Value Reference Range Interpretation Comments Albumin Lvl (test code = Albumin Lvl) 3.4 3.5-5.0 [place] 480482-07-25 02:20:00 Test Item Value Reference Range Interpretation Comments ALT (test code = ALT) 18 See_Comment [Auto mated message] The system which [employer] nerated this result transmit lavon reference range : <=65. The reference range was not used to interpr et this result as dionne l/abnormal. [place] 480482-07-25 02:20:00 Test Item Value Reference Range Interpretation Comments AST (test code = AST) 27 See_Comment [Auto mated message] The system which [employer] nerated this result transmit lavon reference range : <=37. The reference range was not used to interpr et this result as dionne l/abnormal. [place] 480482-07-25 02:20:00 Test Item Value Reference Range Interpretation Comments Alk Phos (test code = Alk Phos) 57 39-136 [facility]2022-07-25 02:20:00 Test Item Value Reference Range Interpretation Comments Bili Total (test code = Bili Total) 1.0 0.2-1.3 [facility]2022-07-25 02:20:00 Test Item Value Reference Range Interpretation Comments AGAP (test code = AGAP) 12.2 10.0-20.0 [facility]2022-07-25 02:20:00 Test Item Value Reference Range Interpretation Comments B/C Ratio (test code = B/C Ratio) 24 1 6-25 [place] 480482-07-25 02:20:00 Test Item Value Reference Range Interpretation Comments Globulin (test code = Globulin) 3.6 2.7-4.2 [place] 480482-07-25 02:20:00 Test Item Value Reference Range Interpretation Comments A/G Ratio (test code = A/G Ratio) 0.9 1 0.7-1.6 [place] 480482-07-25 02:20:00 Test Item Value Reference Range Interpretation Comments eGFR (test code = eGFR) 62 [facility] CampusHpimpwkLONRIQLKRL6126-44-00 02:20:00 Test Item Value Reference Range Interpretation Comments WBC (test code = WBC) 8.6 3.7-10.4 [place] 325412-07-25 02:20:00 Test Item Value Reference Range Interpretation Comments RBC (test code = RBC) 3.58 4.20-5.40 [place] 325412-07-25 02:20:00 Test Item Value Reference Range Interpretation Comments Hgb (test code = Hgb) 8.8 12.0-16.0 [place] 325412-07-25 02:20:00 Test Item Value Reference Range Interpretation Comments Hct (test code = Hct) 27.1 36.0-48.0 [place] 325412-07-25 02:20:00 Test Item Value Reference Range Interpretation Comments MCV (test code = MCV) 75.6 80.0-98.0 [place] 325412-07-25 02:20:00 Test Item Value Reference Range Interpretation Comments MCH (test code = MCH) 24.5 pg 27.0-31.0 [place] 325412-07-25 02:20:00 Test Item Value Reference Range Interpretation Comments MCHC (test code = MCHC) 32.4 32.0-36.0 [place] 325412-07-25 02:20:00 Test Item Value Reference Range Interpretation Comments RDW (test code = RDW) 21.1 11.5-14.5 [place] 325412-07-25 02:20:00 Test Item Value Reference Range Interpretation Comments Platelet (test code = Platelet) 297 133-450 [place] 325412-07-25 02:20:00 Test Item Value Reference Range Interpretation Comments MPV (test code = MPV) 7.5 7.4-10.4 [place] 325412-07-25 02:20:00 Test Item Value Reference Range Interpretation Comments Segs (test code = Segs) 85.8 45.0-75.0 [place] 325412-07-25 02:20:00 Test Item Value Reference Range Interpretation Comments Lymphocytes (test code = Lymphocytes) 8.5 20.0-40.0 [place] 325412-07-25 02:20:00 Test Item Value Reference Range Interpretation Comments Monocytes (test code = Monocytes) 5.0 2.0-12.0 [place] 325412-07-25 02:20:00 Test Item Value Reference Range Interpretation Comments Eosinophils (test code = 0.3 See_Comment [A utomated message] The Eosinophils) system which ge nerated this result tra nsmitted reference range : <=4.0. The reference r hugo was not used to int erpret this result as normal/abnormal . [place] 325412-07-25 02:20:00 Test Item Value Reference Range Interpretation Comments Basophils (test code = 0.4 See_Comment [Aut omated message] The Basophils) system which ge nerated this result tra nsmitted reference range : <=1.0. The reference r hugo was not used to int erpret this result as normal/abnormal . [place] 325412-07-25 02:20:00 Test Item Value Reference Range Interpretation Comments Neutrophils # (test code = Neutrophils 7.4 1.5-8.1 #) [place] 325412-07-25 02:20:00 Test Item Value Reference Range Interpretation Comments Lymphocytes # (test code = Lymphocytes 0.7 1.0-5.5 #) [facility] CampusJknmxzgKHSKJHRXUX1578-02-61 02:20:00 Test Item Value Reference Range Interpretation Comments Monocytes # (test code 0.4 See_Comment [Aut omated message] The = Monocytes #) system which generated this result tra nsmitted reference range : <=0.8. The reference r hugo was not used to int erpret this result as normal/abnormal . [place] 325412-07-25 02:20:00 Test Item Value Reference Range Interpretation Comments Microcyte (test code = 1+ *ABN*(06/12/22 Microcyte) 9:20 PM) [place] 325412-07-25 02:20:00 Test Item Value Reference Range Interpretation Comments Lymphocytes (test code = Lymphocytes) 8.5 20.0-40.0 [place] 325412-07-25 02:20:00 Test Item Value Reference Range Interpretation Comments Monocytes (test code = Monocytes) 5.0 2.0-12.0 [place] 325412-07-25 02:20:00 Test Item Value Reference Range Interpretation Comments Eosinophils (test code = 0.3 See_Comment [A utomated message] The Eosinophils) system which ge nerated this result tra nsmitted reference range : <=4.0. The reference r hugo was not used to int erpret this result as normal/abnormal . [facility] CampusAjeexwwXYMHCKUXYZ1408-41-23 02:20:00 Test Item Value Reference Range Interpretation Comments Basophils (test code = 0.4 See_Comment [Aut omated message] The Basophils) system which ge nerated this result tra nsmitted reference range : <=1.0. The reference r hugo was not used to int erpret this result as normal/abnormal . [place] 325412-07-25 02:20:00 Test Item Value Reference Range Interpretation Comments Neutrophils # (test code = Neutrophils 7.4 1.5-8.1 #) [place] 325412-07-25 02:20:00 Test Item Value Reference Range Interpretation Comments Lymphocytes # (test code = Lymphocytes 0.7 1.0-5.5 #) [place] 325412-07-25 02:20:00 Test Item Value Reference Range Interpretation Comments Monocytes # (test code 0.4 See_Comment [Aut omated message] The = Monocytes #) system which generated this result tra nsmitted reference range : <=0.8. The reference r hugo was not used to int erpret this result as normal/abnormal . [facility]Jb[facility]hk[facility]3700[facility]13 02:20:00 Test Item Value Reference Range Interpretation Comments Microcyte (test code = 1+ *ABN*(06/12/22 Microcyte) 9:20 PM) [facility] [id number] 02:20:00 Test Item Value Reference Range Interpretation Comments HS Troponin I (test code = HS Troponin 52 I) [facility] [id number] 02:20:00 Test Item Value Reference Range Interpretation Comments Glucose Lvl (test code = Glucose Lvl) 103 70-99 [facility]2022-07-25 02:20:00 Test Item Value Reference Range Interpretation Comments BUN (test code = BUN) 22 7-22 [facility]2022-07-25 02:20:00 Test Item Value Reference Range Interpretation Comments Creatinine Lvl (test code = Creatinine 0.90 0.50-1.40 Lvl) [facility] [id number] 02:20:00 Test Item Value Reference Range Interpretation Comments Sodium Lvl (test code = Sodium Lvl) 131 135-145 [facility]2022-07-25 02:20:00 Test Item Value Reference Range Interpretation Comments Potassium Lvl (test code = Potassium 4.2 3.5-5.1 Lvl) [facility]2022-07-25 02:20:00 Test Item Value Reference Range Interpretation Comments Chloride Lvl (test code = Chloride Lvl) 97 95-109 [facility]2022-07-25 02:20:00 Test Item Value Reference Range Interpretation Comments CO2 (test code = CO2) 26 24-32 [facility]2022-07-25 02:20:00 Test Item Value Reference Range Interpretation Comments Calcium Lvl (test code = Calcium Lvl) 8.7 8.5-10.5 [facility] [id number] 02:20:00 Test Item Value Reference Range Interpretation Comments Total Protein (test code = Total 7.0 6.4-8.4 Protein) [place] 480482-07-25 02:20:00 Test Item Value Reference Range Interpretation Comments Albumin Lvl (test code = Albumin Lvl) 3.4 3.5-5.0 [place] 480482-07-25 02:20:00 Test Item Value Reference Range Interpretation Comments ALT (test code = ALT) 18 See_Comment [Auto mated message] The system which ge nerated this result transmit lavon reference range : <=65. The reference range was not used to interpr et this result as dionne l/abnormal. [place] 480482-07-25 02:20:00 Test Item Value Reference Range Interpretation Comments AST (test code = AST) 27 See_Comment [Auto mated message] The system which ge nerated this result transmit lavon reference range : <=37. The reference range was not used to interpr et this result as dionne l/abnormal. [place] 480482-07-25 02:20:00 Test Item Value Reference Range Interpretation Comments Alk Phos (test code = Alk Phos) 57 39-136 [place] 480482-07-25 02:20:00 Test Item Value Reference Range Interpretation Comments Bili Total (test code = Bili Total) 1.0 0.2-1.3 [place] 480482-07-25 02:20:00 Test Item Value Reference Range Interpretation Comments AGAP (test code = AGAP) 12.2 10.0-20.0 [place] 480482-07-25 02:20:00 Test Item Value Reference Range Interpretation Comments B/C Ratio (test code = B/C Ratio) 24 1 6-25 [place] 480482-07-25 02:20:00 Test Item Value Reference Range Interpretation Comments Globulin (test code = Globulin) 3.6 2.7-4.2 [place] 480482-07-25 02:20:00 Test Item Value Reference Range Interpretation Comments A/G Ratio (test code = A/G Ratio) 0.9 1 0.7-1.6 [place] 480482-07-25 02:20:00 Test Item Value Reference Range Interpretation Comments eGFR (test code = eGFR) 62 [facility] CampusRicmuslWSZTUTQTFH4409-13-05 02:20:00 Test Item Value Reference Range Interpretation Comments WBC (test code = WBC) 8.6 3.7-10.4 [facility] CampusCkuupvqKHOBQFPSSS5534-68-28 02:20:00 Test Item Value Reference Range Interpretation Comments RBC (test code = RBC) 3.58 4.20-5.40 [facility] CampusNgowbqyIRFXFCPZRM5837-71-25 02:20:00 Test Item Value Reference Range Interpretation Comments Hgb (test code = Hgb) 8.8 12.0-16.0 [place] 325412-07-25 02:20:00 Test Item Value Reference Range Interpretation Comments Hct (test code = Hct) 27.1 36.0-48.0 [facility] CampusRvngylyLZTZIIBNQB9186-43-59 02:20:00 Test Item Value Reference Range Interpretation Comments MCV (test code = MCV) 75.6 80.0-98.0 [facility] CampusZitshruTXOKHWGECA8631-39-35 02:20:00 Test Item Value Reference Range Interpretation Comments MCH (test code = MCH) 24.5 pg 27.0-31.0 [facility] CampusKamucvdAZQMPEXXMV6966-43-13 02:20:00 Test Item Value Reference Range Interpretation Comments MCHC (test code = MCHC) 32.4 32.0-36.0 [facility] CampusOkwasjaAMSPCAORSO4107-62-86 02:20:00 Test Item Value Reference Range Interpretation Comments RDW (test code = RDW) 21.1 11.5-14.5 [facility] CampusYthekycGSDCOJFZOK7666-76-97 02:20:00 Test Item Value Reference Range Interpretation Comments Platelet (test code = Platelet) 297 133-450 [facility] CampusQlrzhezJLPAVLLQMZ3784-53-05 02:20:00 Test Item Value Reference Range Interpretation Comments MPV (test code = MPV) 7.5 7.4-10.4 [facility] CampusKrghqtjYGWHINMZNE7561-90-82 02:20:00 Test Item Value Reference Range Interpretation Comments Segs (test code = Segs) 85.8 45.0-75.0 [facility] CampusDmpvvbhFUGRJEHPHY1844-98-89 02:20:00 Test Item Value Reference Range Interpretation Comments Lymphocytes (test code = Lymphocytes) 8.5 20.0-40.0 [place] 325412-07-25 02:20:00 Test Item Value Reference Range Interpretation Comments Monocytes (test code = Monocytes) 5.0 2.0-12.0 [facility] CampusXzrjggxRBXVTEUXBM5648-74-10 02:20:00 Test Item Value Reference Range Interpretation Comments Eosinophils (test code = 0.3 See_Comment [A utomated message] The Eosinophils) system which ge nerated this result tra nsmitted reference range : <=4.0. The reference r hugo was not used to int erpret this result as normal/abnormal . [facility] CampusJmgqqbnGWHJUJUKLG2665-51-84 02:20:00 Test Item Value Reference Range Interpretation Comments Basophils (test code = 0.4 See_Comment [Aut omated message] The Basophils) system which ge nerated this result tra nsmitted reference range : <=1.0. The reference r hugo was not used to int erpret this result as normal/abnormal . [facility] CampusSdiqmmvHJECYIOZZI0017-30-09 02:20:00 Test Item Value Reference Range Interpretation Comments Neutrophils # (test code = Neutrophils 7.4 1.5-8.1 #) [facility] CampusNdlygpeVWHHAGTADS4095-76-98 02:20:00 Test Item Value Reference Range Interpretation Comments Lymphocytes # (test code = Lymphocytes 0.7 1.0-5.5 #) [facility] CampusYycwkziQMSTQGBUPC9069-02-36 02:20:00 Test Item Value Reference Range Interpretation Comments Monocytes # (test code 0.4 See_Comment [Aut omated message] The = Monocytes #) system which generated this result tra nsmitted reference range : <=0.8. The reference r hugo was not used to int erpret this result as normal/abnormal . [facility] CampusPdmqcwoXZXCBGCLBX3816-14-56 02:20:00 Test Item Value Reference Range Interpretation Comments Microcyte (test code = 1+ *ABN*(06/12/22 Microcyte) 9:20 PM) [facility] [id number] 02:20:00 Test Item Value Reference Range Interpretation Comments HS Troponin I (test code = HS Troponin 52 I) [facility]2022-07-25 02:20:00 Test Item Value Reference Range Interpretation Comments Glucose Lvl (test code = Glucose Lvl) 103 70-99 [facility]2022-07-25 02:20:00 Test Item Value Reference Range Interpretation Comments BUN (test code = BUN) 22 -22 [place] 480482-07-25 02:20:00 Test Item Value Reference Range Interpretation Comments Creatinine Lvl (test code = Creatinine 0.90 0.50-1.40 Lvl) [place] 480482-07-25 02:20:00 Test Item Value Reference Range Interpretation Comments Sodium Lvl (test code = Sodium Lvl) 131 135-145 [place] 480482-07-25 02:20:00 Test Item Value Reference Range Interpretation Comments Potassium Lvl (test code = Potassium 4.2 3.5-5.1 Lvl) [place] [address]-07-25 02:20:00 Test Item Value Reference Range Interpretation Comments Chloride Lvl (test code = Chloride Lvl) 97 95-109 [place] 244[address]-07-25 02:20:00 Test Item Value Reference Range Interpretation Comments CO2 (test code = CO2) 26 24-32 [place] 480482-07-25 02:20:00 Test Item Value Reference Range Interpretation Comments Calcium Lvl (test code = Calcium Lvl) 8.7 8.5-10.5 [place] 244[address]-07-25 02:20:00 Test Item Value Reference Range Interpretation Comments Total Protein (test code = Total 7.0 6.4-8.4 Protein) [place] 244[address]-07-25 02:20:00 Test Item Value Reference Range Interpretation Comments Albumin Lvl (test code = Albumin Lvl) 3.4 3.5-5.0 [place] 480482-07-25 02:20:00 Test Item Value Reference Range Interpretation Comments ALT (test code = ALT) 18 See_Comment [Auto mated message] The system which ge nerated this result transmit lavon reference range : <=65. The reference range was not used to interpr et this result as dionne l/abnormal. [place] [address]-07-25 02:20:00 Test Item Value Reference Range Interpretation Comments AST (test code = AST) 27 See_Comment [Auto mated message] The system which ge nerated this result transmit lavon reference range : <=37. The reference range was not used to interpr et this result as dionne l/abnormal. [place] 480482-07-25 02:20:00 Test Item Value Reference Range Interpretation Comments Alk Phos (test code = Alk Phos) 57 39-136 [facility]2022-07-25 02:20:00 Test Item Value Reference Range Interpretation Comments Bili Total (test code = Bili Total) 1.0 0.2-1.3 [facility]2022-07-25 02:20:00 Test Item Value Reference Range Interpretation Comments AGAP (test code = AGAP) 12.2 10.0-20.0 [facility]2022-07-25 02:20:00 Test Item Value Reference Range Interpretation Comments B/C Ratio (test code = B/C Ratio) 24 1 6-25 [place] 480482-07-25 02:20:00 Test Item Value Reference Range Interpretation Comments Globulin (test code = Globulin) 3.6 2.7-4.2 [facility]2022-07-25 02:20:00 Test Item Value Reference Range Interpretation Comments A/G Ratio (test code = A/G Ratio) 0.9 1 0.7-1.6 [place] 480482-07-25 02:20:00 Test Item Value Reference Range Interpretation Comments eGFR (test code = eGFR) 62 [facility] CampusNjrtahtAELSVQIBBK6367-29-56 02:20:00 Test Item Value Reference Range Interpretation Comments WBC (test code = WBC) 8.6 3.7-10.4 [facility] CampusOjaamlnGZDRQXUVKD3612-78-09 02:20:00 Test Item Value Reference Range Interpretation Comments RBC (test code = RBC) 3.58 4.20-5.40 [place] 325412-07-25 02:20:00 Test Item Value Reference Range Interpretation Comments Hgb (test code = Hgb) 8.8 12.0-16.0 [place] 325412-07-25 02:20:00 Test Item Value Reference Range Interpretation Comments Hct (test code = Hct) 27.1 36.0-48.0 [place] 325412-07-25 02:20:00 Test Item Value Reference Range Interpretation Comments MCV (test code = MCV) 75.6 80.0-98.0 [place] 325412-07-25 02:20:00 Test Item Value Reference Range Interpretation Comments MCH (test code = MCH) 24.5 pg 27.0-31.0 [place] 325412-07-25 02:20:00 Test Item Value Reference Range Interpretation Comments MCHC (test code = MCHC) 32.4 32.0-36.0 [place] 325412-07-25 02:20:00 Test Item Value Reference Range Interpretation Comments RDW (test code = RDW) 21.1 11.5-14.5 [place] 325412-07-25 02:20:00 Test Item Value Reference Range Interpretation Comments Platelet (test code = Platelet) 297 133-450 [place] 325412-07-25 02:20:00 Test Item Value Reference Range Interpretation Comments MPV (test code = MPV) 7.5 7.4-10.4 [place] 325412-07-25 02:20:00 Test Item Value Reference Range Interpretation Comments Segs (test code = Segs) 85.8 45.0-75.0 [place] 325412-07-25 02:20:00 Test Item Value Reference Range Interpretation Comments Lymphocytes (test code = Lymphocytes) 8.5 20.0-40.0 [place] 325412-07-25 02:20:00 Test Item Value Reference Range Interpretation Comments Monocytes (test code = Monocytes) 5.0 2.0-12.0 [place] 325412-07-25 02:20:00 Test Item Value Reference Range Interpretation Comments Eosinophils (test code = 0.3 See_Comment [A utomated message] The Eosinophils) system which ge nerated this result tra nsmitted reference range : <=4.0. The reference r hugo was not used to int erpret this result as normal/abnormal . [place] 325412-07-25 02:20:00 Test Item Value Reference Range Interpretation Comments Basophils (test code = 0.4 See_Comment [Aut omated message] The Basophils) system which ge nerated this result tra nsmitted reference range : <=1.0. The reference r hugo was not used to int erpret this result as normal/abnormal . [place] 325412-07-25 02:20:00 Test Item Value Reference Range Interpretation Comments Neutrophils # (test code = Neutrophils 7.4 1.5-8.1 #) [place] 325412-07-25 02:20:00 Test Item Value Reference Range Interpretation Comments Lymphocytes # (test code = Lymphocytes 0.7 1.0-5.5 #) [id number] 02:20:00 Test Item Value Reference Range Interpretation Comments Monocytes # (test code 0.4 See_Comment [Aut omated message] The = Monocytes #) system which generated this result tra nsmitted reference range : <=0.8. The reference r hugo was not used to int erpret this result as normal/abnormal . [facility] HospitalFqlzvvmRDPDZCNIYC1153-86-56 02:20:00 Test Item Value Reference Range Interpretation Comments Microcyte (test code = 1+ *ABN*(06/12/22 Microcyte) 9:20 PM) [facility] [id number] 02:20:00 Test Item Value Reference Range Interpretation Comments HS Troponin I (test code = HS Troponin 52 I) [facility] [id number] 02:20:00 Test Item Value Reference Range Interpretation Comments Glucose Lvl (test code = Glucose Lvl) 103 70-99 [facility] [id number] 02:20:00 Test Item Value Reference Range Interpretation Comments BUN (test code = BUN) 22 7-22 [facility]2022-07-25 02:20:00 Test Item Value Reference Range Interpretation Comments Creatinine Lvl (test code = Creatinine 0.90 0.50-1.40 Lvl) [facility]2022-07-25 02:20:00 Test Item Value Reference Range Interpretation Comments Sodium Lvl (test code = Sodium Lvl) 131 135-145 [facility] NJTLS4698-07-15 02:20:00 Test Item Value Reference Range Interpretation Comments Potassium Lvl (test code = Potassium 4.2 3.5-5.1 Lvl) [facility] [id number] 02:20:00 Test Item Value Reference Range Interpretation Comments Chloride Lvl (test code = Chloride Lvl) 97 95-109 [facility]2022-07-25 02:20:00 Test Item Value Reference Range Interpretation Comments CO2 (test code = CO2) 26 24-32 [facility] [id number] 02:20:00 Test Item Value Reference Range Interpretation Comments Calcium Lvl (test code = Calcium Lvl) 8.7 8.5-10.5 [place] 480482-07-25 02:20:00 Test Item Value Reference Range Interpretation Comments Total Protein (test code = Total 7.0 6.4-8.4 Protein) [place] 480482-07-25 02:20:00 Test Item Value Reference Range Interpretation Comments Albumin Lvl (test code = Albumin Lvl) 3.4 3.5-5.0 [place] 480482-07-25 02:20:00 Test Item Value Reference Range Interpretation Comments ALT (test code = ALT) 18 See_Comment [Auto mated message] The system which ge nerated this result transmit lavon reference range : <=65. The reference range was not used to interpr et this result as dionne l/abnormal. [facility] HospitalLiquidTalk [id number] 02:20:00 Test Item Value Reference Range Interpretation Comments AST (test code = AST) 27 See_Comment [Auto mated message] The system which ge nerated this result transmit lavon reference range : <=37. The reference range was not used to interpr et this result as dionne l/abnormal. [place] 480482-07-25 02:20:00 Test Item Value Reference Range Interpretation Comments Alk Phos (test code = Alk Phos) 57 39-136 [facility] [id number] 02:20:00 Test Item Value Reference Range Interpretation Comments Bili Total (test code = Bili Total) 1.0 0.2-1.3 [place] 480482-07-25 02:20:00 Test Item Value Reference Range Interpretation Comments AGAP (test code = AGAP) 12.2 10.0-20.0 [facility] [id number] 02:20:00 Test Item Value Reference Range Interpretation Comments B/C Ratio (test code = B/C Ratio) 24 1 6-25 [facility] [id number] 02:20:00 Test Item Value Reference Range Interpretation Comments Globulin (test code = Globulin) 3.6 2.7-4.2 [facility] [id number] 02:20:00 Test Item Value Reference Range Interpretation Comments A/G Ratio (test code = A/G Ratio) 0.9 1 0.7-1.6 [facility]2022-07-25 02:20:00 Test Item Value Reference Range Interpretation Comments eGFR (test code = eGFR) 62 [facility] CampusVankthsXTOMAFCCSP6347-69-72 02:20:00 Test Item Value Reference Range Interpretation Comments WBC (test code = WBC) 8.6 3.7-10.4 [place] 325412-07-25 02:20:00 Test Item Value Reference Range Interpretation Comments RBC (test code = RBC) 3.58 4.20-5.40 [place] 325412-07-25 02:20:00 Test Item Value Reference Range Interpretation Comments Hgb (test code = Hgb) 8.8 12.0-16.0 [place] 325412-07-25 02:20:00 Test Item Value Reference Range Interpretation Comments Hct (test code = Hct) 27.1 36.0-48.0 [place] 325412-07-25 02:20:00 Test Item Value Reference Range Interpretation Comments MCV (test code = MCV) 75.6 80.0-98.0 [place] 325412-07-25 02:20:00 Test Item Value Reference Range Interpretation Comments MCH (test code = MCH) 24.5 pg 27.0-31.0 [facility] CampusGdokxhlDNMHILEQAG7697-38-97 02:20:00 Test Item Value Reference Range Interpretation Comments MCHC (test code = MCHC) 32.4 32.0-36.0 [facility] CampusYrtrmwdZFGQFGQAGU0899-25-17 02:20:00 Test Item Value Reference Range Interpretation Comments RDW (test code = RDW) 21.1 11.5-14.5 [place] 325412-07-25 02:20:00 Test Item Value Reference Range Interpretation Comments Platelet (test code = Platelet) 297 133-450 [facility] CampusMnhuclnVFGERVSQQL2057-31-82 02:20:00 Test Item Value Reference Range Interpretation Comments MPV (test code = MPV) 7.5 7.4-10.4 [place] 325412-07-25 02:20:00 Test Item Value Reference Range Interpretation Comments Segs (test code = Segs) 85.8 45.0-75.0 [facility] CampusBnxqjzrUVNNAZNHLA4233-77-38 02:20:00 Test Item Value Reference Range Interpretation Comments Lymphocytes (test code = Lymphocytes) 8.5 20.0-40.0 [facility] HospitalSwyywfpTOTLZQJXCE9602-33-22 02:20:00 Test Item Value Reference Range Interpretation Comments Monocytes (test code = Monocytes) 5.0 2.0-12.0 [facility] CampusWjltafcNFGVCEXKVU2783-53-40 02:20:00 Test Item Value Reference Range Interpretation Comments Eosinophils (test code = 0.3 See_Comment [A utomated message] The Eosinophils) system which ge nerated this result tra nsmitted reference range : <=4.0. The reference r hugo was not used to int erpret this result as normal/abnormal . [facility] CampusAolyginDJSVTAVYLD6848-87-17 02:20:00 Test Item Value Reference Range Interpretation Comments Basophils (test code = 0.4 See_Comment [Aut omated message] The Basophils) system which ge nerated this result tra nsmitted reference range : <=1.0. The reference r hugo was not used to int erpret this result as normal/abnormal . [facility] CampusUjwrkecHZRPUOIKHW2680-78-85 02:20:00 Test Item Value Reference Range Interpretation Comments Neutrophils # (test code = Neutrophils 7.4 1.5-8.1 #) [facility] CampusCnaacdgDEIVVFJHPT6538-53-58 02:20:00 Test Item Value Reference Range Interpretation Comments Lymphocytes # (test code = Lymphocytes 0.7 1.0-5.5 #) [facility] CampusTxfqpitOWGXCZCAAO3197-31-51 02:20:00 Test Item Value Reference Range Interpretation Comments Monocytes # (test code 0.4 See_Comment [Aut omated message] The = Monocytes #) system which generated this result tra nsmitted reference range : <=0.8. The reference r hugo was not used to int erpret this result as normal/abnormal . [facility] HospitalVgnwghcTROOYPFXEZ1461-95-79 02:20:00 Test Item Value Reference Range Interpretation Comments Microcyte (test code = 1+ *ABN*(06/12/22 Microcyte) 9:20 PM) [facility] [id number] 02:20:00 Test Item Value Reference Range Interpretation Comments HS Troponin I (test code = HS Troponin 52 I) [facility] HospitalCHEM [id number] 02:20:00 Test Item Value Reference Range Interpretation Comments Glucose Lvl (test code = Glucose Lvl) 103 70-99 [place] [address]-07-25 02:20:00 Test Item Value Reference Range Interpretation Comments BUN (test code = BUN) 22 7-22 [place] [address]-07-25 02:20:00 Test Item Value Reference Range Interpretation Comments Creatinine Lvl (test code = Creatinine 0.90 0.50-1.40 Lvl) [place] [address]-07-25 02:20:00 Test Item Value Reference Range Interpretation Comments Sodium Lvl (test code = Sodium Lvl) 131 135-145 [place] [address]-07-25 02:20:00 Test Item Value Reference Range Interpretation Comments Potassium Lvl (test code = Potassium 4.2 3.5-5.1 Lvl) [address]07-25 02:20:00 Test Item Value Reference Range Interpretation Comments Chloride Lvl (test code = Chloride Lvl) 97 95-109 [place] [address]-07-25 02:20:00 Test Item Value Reference Range Interpretation Comments CO2 (test code = CO2) 26 24-32 [place] [address]-07-25 02:20:00 Test Item Value Reference Range Interpretation Comments Calcium Lvl (test code = Calcium Lvl) 8.7 8.5-10.5 [place] [address]-07-25 02:20:00 Test Item Value Reference Range Interpretation Comments Total Protein (test code = Total 7.0 6.4-8.4 Protein) [place] [address]-07-25 02:20:00 Test Item Value Reference Range Interpretation Comments Albumin Lvl (test code = Albumin Lvl) 3.4 3.5-5.0 [place] [address]-07-25 02:20:00 Test Item Value Reference Range Interpretation Comments ALT (test code = ALT) 18 See_Comment [Auto mated message] The system which ge nerated this result transmit lavon reference range : <=65. The reference range was not used to interpr et this result as dionne l/abnormal. [place] [address]-07-25 02:20:00 Test Item Value Reference Range Interpretation Comments AST (test code = AST) 27 See_Comment [Auto mated message] The system which ge nerated this result transmit lavon reference range : <=37. The reference range was not used to interpr et this result as dionne l/abnormal. [facility]2022-07-25 02:20:00 Test Item Value Reference Range Interpretation Comments Alk Phos (test code = Alk Phos) 57 39-136 [place] 480482-07-25 02:20:00 Test Item Value Reference Range Interpretation Comments Bili Total (test code = Bili Total) 1.0 0.2-1.3 [place] 480482-07-25 02:20:00 Test Item Value Reference Range Interpretation Comments AGAP (test code = AGAP) 12.2 10.0-20.0 [place] 480482-07-25 02:20:00 Test Item Value Reference Range Interpretation Comments B/C Ratio (test code = B/C Ratio) 24 1 6-25 [place] 480482-07-25 02:20:00 Test Item Value Reference Range Interpretation Comments Globulin (test code = Globulin) 3.6 2.7-4.2 [place] 480482-07-25 02:20:00 Test Item Value Reference Range Interpretation Comments A/G Ratio (test code = A/G Ratio) 0.9 1 0.7-1.6 [place] 480482-07-25 02:20:00 Test Item Value Reference Range Interpretation Comments eGFR (test code = eGFR) 62 [place] 325412-07-25 02:20:00 Test Item Value Reference Range Interpretation Comments WBC (test code = WBC) 8.6 3.7-10.4 [place] 325412-07-25 02:20:00 Test Item Value Reference Range Interpretation Comments RBC (test code = RBC) 3.58 4.20-5.40 [place] 325412-07-25 02:20:00 Test Item Value Reference Range Interpretation Comments Hgb (test code = Hgb) 8.8 12.0-16.0 [place] 325412-07-25 02:20:00 Test Item Value Reference Range Interpretation Comments Hct (test code = Hct) 27.1 36.0-48.0 [place] 325412-07-25 02:20:00 Test Item Value Reference Range Interpretation Comments MCV (test code = MCV) 75.6 80.0-98.0 [place] 325412-07-25 02:20:00 Test Item Value Reference Range Interpretation Comments MCH (test code = MCH) 24.5 pg 27.0-31.0 [place] 325412-07-25 02:20:00 Test Item Value Reference Range Interpretation Comments MCHC (test code = MCHC) 32.4 32.0-36.0 [place] 325412-07-25 02:20:00 Test Item Value Reference Range Interpretation Comments RDW (test code = RDW) 21.1 11.5-14.5 [place] 325412-07-25 02:20:00 Test Item Value Reference Range Interpretation Comments Platelet (test code = Platelet) 297 133-450 [facility] CampusLswuakvZBJKFJGSAS2227-14-31 02:20:00 Test Item Value Reference Range Interpretation Comments MPV (test code = MPV) 7.5 7.4-10.4 [place] 325412-07-25 02:20:00 Test Item Value Reference Range Interpretation Comments Segs (test code = Segs) 85.8 45.0-75.0 [place] 325412-07-25 02:20:00 Test Item Value Reference Range Interpretation Comments Lymphocytes (test code = Lymphocytes) 8.5 20.0-40.0 [place] 325412-07-25 02:20:00 Test Item Value Reference Range Interpretation Comments Monocytes (test code = Monocytes) 5.0 2.0-12.0 [place] 325412-07-25 02:20:00 Test Item Value Reference Range Interpretation Comments Eosinophils (test code = 0.3 See_Comment [A utomated message] The Eosinophils) system which ge nerated this result tra nsmitted reference range : <=4.0. The reference r hugo was not used to int erpret this result as normal/abnormal . [place] 325412-07-25 02:20:00 Test Item Value Reference Range Interpretation Comments Basophils (test code = 0.4 See_Comment [Aut omated message] The Basophils) system which ge nerated this result tra nsmitted reference range : <=1.0. The reference r hugo was not used to int erpret this result as normal/abnormal . [place] 325412-07-25 02:20:00 Test Item Value Reference Range Interpretation Comments Neutrophils # (test code = Neutrophils 7.4 1.5-8.1 #) [facility] CampusVjripawHVKURCXPEC5831-68-82 02:20:00 Test Item Value Reference Range Interpretation Comments Lymphocytes # (test code = Lymphocytes 0.7 1.0-5.5 #) [facility] CampusZgjkczaERVJWQUWTS3486-03-04 02:20:00 Test Item Value Reference Range Interpretation Comments Monocytes # (test code 0.4 See_Comment [Aut omated message] The = Monocytes #) system which generated this result tra nsmitted reference range : <=0.8. The reference r hugo was not used to int erpret this result as normal/abnormal . [facility] CampusDqmhweeAZIGUMWBPN1803-79-44 02:20:00 Test Item Value Reference Range Interpretation Comments Microcyte (test code = 1+ *ABN*(06/12/22 Microcyte) 9:20 PM) [facility] [id number] 02:20:00 Test Item Value Reference Range Interpretation Comments HS Troponin I (test code = HS Troponin 52 I) [facility]2022-07-25 02:20:00 Test Item Value Reference Range Interpretation Comments Glucose Lvl (test code = Glucose Lvl) 103 70-99 [facility]2022-07-25 02:20:00 Test Item Value Reference Range Interpretation Comments BUN (test code = BUN) 22 7-22 [place] 480482-07-25 02:20:00 Test Item Value Reference Range Interpretation Comments Creatinine Lvl (test code = Creatinine 0.90 0.50-1.40 Lvl) [facility]2022-07-25 02:20:00 Test Item Value Reference Range Interpretation Comments Sodium Lvl (test code = Sodium Lvl) 131 135-145 [facility]2022-07-25 02:20:00 Test Item Value Reference Range Interpretation Comments Potassium Lvl (test code = Potassium 4.2 3.5-5.1 Lvl) [facility]2022-07-25 02:20:00 Test Item Value Reference Range Interpretation Comments Chloride Lvl (test code = Chloride Lvl) 97 95-109 [facility]2022-07-25 02:20:00 Test Item Value Reference Range Interpretation Comments CO2 (test code = CO2) 26 24-32 [facility] [id number] 02:20:00 Test Item Value Reference Range Interpretation Comments Calcium Lvl (test code = Calcium Lvl) 8.7 8.5-10.5 [facility] [id number] 02:20:00 Test Item Value Reference Range Interpretation Comments Total Protein (test code = Total 7.0 6.4-8.4 Protein) [facility] [id number] 02:20:00 Test Item Value Reference Range Interpretation Comments Albumin Lvl (test code = Albumin Lvl) 3.4 3.5-5.0 [facility] [id number] 02:20:00 Test Item Value Reference Range Interpretation Comments ALT (test code = ALT) 18 See_Comment [Auto mated message] The system which ge nerated this result transmit lavon reference range : <=65. The reference range was not used to interpr et this result as dionne l/abnormal. [facility] [id number] 02:20:00 Test Item Value Reference Range Interpretation Comments AST (test code = AST) 27 See_Comment [Auto mated message] The system which ge nerated this result transmit lavon reference range : <=37. The reference range was not used to interpr et this result as dionne l/abnormal. [facility] [employer] [id number] 02:20:00 Test Item Value Reference Range Interpretation Comments Alk Phos (test code = Alk Phos) 57 39-136 [facility] [id number] 02:20:00 Test Item Value Reference Range Interpretation Comments Bili Total (test code = Bili Total) 1.0 0.2-1.3 [facility] [id number] 02:20:00 Test Item Value Reference Range Interpretation Comments AGAP (test code = AGAP) 12.2 10.0-20.0 [facility] [employer] [id number] 02:20:00 Test Item Value Reference Range Interpretation Comments B/C Ratio (test code = B/C Ratio) 24 1 6-25 [facility] [id number] 02:20:00 Test Item Value Reference Range Interpretation Comments Globulin (test code = Globulin) 3.6 2.7-4.2 [facility] [employer] [id number] 02:20:00 Test Item Value Reference Range Interpretation Comments A/G Ratio (test code = A/G Ratio) 0.9 1 0.7-1.6 [facility]2022-07-25 02:20:00 Test Item Value Reference Range Interpretation Comments eGFR (test code = eGFR) 62 [facility] CampusYdyqresWYUZTWWIVB9190-59-29 02:20:00 Test Item Value Reference Range Interpretation Comments WBC (test code = WBC) 8.6 3.7-10.4 [facility] CampusAfcqahuMDSBRBQVZH1640-79-89 02:20:00 Test Item Value Reference Range Interpretation Comments RBC (test code = RBC) 3.58 4.20-5.40 [place] 325412-07-25 02:20:00 Test Item Value Reference Range Interpretation Comments Hgb (test code = Hgb) 8.8 12.0-16.0 [facility] CampusMrrheorQCBJQARFEA8516-01-22 02:20:00 Test Item Value Reference Range Interpretation Comments Hct (test code = Hct) 27.1 36.0-48.0 [facility] CampusDhomsvoCEJJHKJOBZ9657-19-22 02:20:00 Test Item Value Reference Range Interpretation Comments MCV (test code = MCV) 75.6 80.0-98.0 [place] 325412-07-25 02:20:00 Test Item Value Reference Range Interpretation Comments MCH (test code = MCH) 24.5 pg 27.0-31.0 [facility] CampusZxzqphpZUQUYHVFUM3973-48-64 02:20:00 Test Item Value Reference Range Interpretation Comments MCHC (test code = MCHC) 32.4 32.0-36.0 [facility] CampusLlgzcpfIYLEJSOOST3289-42-43 02:20:00 Test Item Value Reference Range Interpretation Comments RDW (test code = RDW) 21.1 11.5-14.5 [place] 325412-07-25 02:20:00 Test Item Value Reference Range Interpretation Comments Platelet (test code = Platelet) 297 133-450 [facility] CampusBjlodndGUMRSUJZGU6655-78-15 02:20:00 Test Item Value Reference Range Interpretation Comments MPV (test code = MPV) 7.5 7.4-10.4 [facility] CampusZzqpqcrPFYYTRVMTL8374-09-46 02:20:00 Test Item Value Reference Range Interpretation Comments Segs (test code = Segs) 85.8 45.0-75.0 [facility] CampusLhtkxjrZDIUCQVYWU8222-29-82 02:20:00 Test Item Value Reference Range Interpretation Comments Lymphocytes (test code = Lymphocytes) 8.5 20.0-40.0 [facility] CampusGuccdyvCOKBTVYKZR5481-38-99 02:20:00 Test Item Value Reference Range Interpretation Comments Monocytes (test code = Monocytes) 5.0 2.0-12.0 [facility] C[id number] 02:20:00 Test Item Value Reference Range Interpretation Comments Eosinophils (test code = 0.3 See_Comment [A utomated message] The Eosinophils) system which ge nerated this result tra nsmitted reference range : <=4.0. The reference r hugo was not used to int erpret this result as normal/abnormal . [facility] CampusMxqtiwzXAWPDQMNZJ3858-38-00 02:20:00 Test Item Value Reference Range Interpretation Comments Basophils (test code = 0.4 See_Comment [Aut omated message] The Basophils) system which ge nerated this result tra nsmitted reference range : <=1.0. The reference r hugo was not used to int erpret this result as normal/abnormal . [facility] CampusJhhfbulNUJSQRPYFY2713-47-13 02:20:00 Test Item Value Reference Range Interpretation Comments Neutrophils # (test code = Neutrophils 7.4 1.5-8.1 #) [facility] CampusHcukcvlRELJMQSFEZ6137-97-10 02:20:00 Test Item Value Reference Range Interpretation Comments Lymphocytes # (test code = Lymphocytes 0.7 1.0-5.5 #) [facility] CampusHnhhxpoGWLVCTUTIL9695-17-41 02:20:00 Test Item Value Reference Range Interpretation Comments Monocytes # (test code 0.4 See_Comment [Aut omated message] The = Monocytes #) system which generated this result tra nsmitted reference range : <=0.8. The reference r hugo was not used to int erpret this result as normal/abnormal . [facility] CampusCrqovmlGHJGAJBRFR7418-19-00 02:20:00 Test Item Value Reference Range Interpretation Comments Microcyte (test code = 1+ *ABN*(06/12/22 Microcyte) 9:20 PM) [facility]2022-07-25 02:20:00 Test Item Value Reference Range Interpretation Comments HS Troponin I (test code = HS Troponin 52 I) [facility]2022-07-25 02:20:00 Test Item Value Reference Range Interpretation Comments Glucose Lvl (test code = Glucose Lvl) 103 70-99 [place] 480482-07-25 02:20:00 Test Item Value Reference Range Interpretation Comments BUN (test code = BUN) 22 7-22 [place] 480482-07-25 02:20:00 Test Item Value Reference Range Interpretation Comments Creatinine Lvl (test code = Creatinine 0.90 0.50-1.40 Lvl) [place] 480482-07-25 02:20:00 Test Item Value Reference Range Interpretation Comments Sodium Lvl (test code = Sodium Lvl) 131 135-145 [place] 480482-07-25 02:20:00 Test Item Value Reference Range Interpretation Comments Potassium Lvl (test code = Potassium 4.2 3.5-5.1 Lvl) [place] 480482-07-25 02:20:00 Test Item Value Reference Range Interpretation Comments Chloride Lvl (test code = Chloride Lvl) 97 95-109 [place] 480482-07-25 02:20:00 Test Item Value Reference Range Interpretation Comments CO2 (test code = CO2) 26 24-32 [place] 480482-07-25 02:20:00 Test Item Value Reference Range Interpretation Comments Calcium Lvl (test code = Calcium Lvl) 8.7 8.5-10.5 [place] 480482-07-25 02:20:00 Test Item Value Reference Range Interpretation Comments Total Protein (test code = Total 7.0 6.4-8.4 Protein) [place] 480482-07-25 02:20:00 Test Item Value Reference Range Interpretation Comments Albumin Lvl (test code = Albumin Lvl) 3.4 3.5-5.0 [place] 480482-07-25 02:20:00 Test Item Value Reference Range Interpretation Comments ALT (test code = ALT) 18 See_Comment [Auto mated message] The system which ge nerated this result transmit lavon reference range : <=65. The reference range was not used to interpr et this result as dionne l/abnormal. [place] 480482-07-25 02:20:00 Test Item Value Reference Range Interpretation Comments AST (test code = AST) 27 See_Comment [Auto mated message] The system which ge nerated this result transmit lavon reference range : <=37. The reference range was not used to interpr et this result as dionne l/abnormal. [facility]2022-07-25 02:20:00 Test Item Value Reference Range Interpretation Comments Alk Phos (test code = Alk Phos) 57 39-136 [facility]2022-07-25 02:20:00 Test Item Value Reference Range Interpretation Comments Bili Total (test code = Bili Total) 1.0 0.2-1.3 [place] 480482-07-25 02:20:00 Test Item Value Reference Range Interpretation Comments AGAP (test code = AGAP) 12.2 10.0-20.0 [place] 480482-07-25 02:20:00 Test Item Value Reference Range Interpretation Comments B/C Ratio (test code = B/C Ratio) 24 1 6-25 [place] 480482-07-25 02:20:00 Test Item Value Reference Range Interpretation Comments Globulin (test code = Globulin) 3.6 2.7-4.2 [place] 480482-07-25 02:20:00 Test Item Value Reference Range Interpretation Comments A/G Ratio (test code = A/G Ratio) 0.9 1 0.7-1.6 [place] 480482-07-25 02:20:00 Test Item Value Reference Range Interpretation Comments eGFR (test code = eGFR) 62 [place] 325412-07-25 02:20:00 Test Item Value Reference Range Interpretation Comments WBC (test code = WBC) 8.6 3.7-10.4 [place] 325412-07-25 02:20:00 Test Item Value Reference Range Interpretation Comments RBC (test code = RBC) 3.58 4.20-5.40 [place] 325412-07-25 02:20:00 Test Item Value Reference Range Interpretation Comments Hgb (test code = Hgb) 8.8 12.0-16.0 [place] [address]-07-25 02:20:00 Test Item Value Reference Range Interpretation Comments Hct (test code = Hct) 27.1 36.0-48.0 [place] 325412-07-25 02:20:00 Test Item Value Reference Range Interpretation Comments MCV (test code = MCV) 75.6 80.0-98.0 [place] [address]-07-25 02:20:00 Test Item Value Reference Range Interpretation Comments MCH (test code = MCH) 24.5 pg 27.0-31.0 [place] 325412-07-25 02:20:00 Test Item Value Reference Range Interpretation Comments MCHC (test code = MCHC) 32.4 32.0-36.0 [place] 325412-07-25 02:20:00 Test Item Value Reference Range Interpretation Comments RDW (test code = RDW) 21.1 11.5-14.5 [place] [address]-07-25 02:20:00 Test Item Value Reference Range Interpretation Comments Platelet (test code = Platelet) 297 133-450 [place] 325412-07-25 02:20:00 Test Item Value Reference Range Interpretation Comments MPV (test code = MPV) 7.5 7.4-10.4 [place] 325412-07-25 02:20:00 Test Item Value Reference Range Interpretation Comments Segs (test code = Segs) 85.8 45.0-75.0 [place] [address]-07-25 02:20:00 Test Item Value Reference Range Interpretation Comments Lymphocytes (test code = Lymphocytes) 8.5 20.0-40.0 [place] 325412-07-25 02:20:00 Test Item Value Reference Range Interpretation Comments Monocytes (test code = Monocytes) 5.0 2.0-12.0 [place] [address]-07-25 02:20:00 Test Item Value Reference Range Interpretation Comments Eosinophils (test code = 0.3 See_Comment [A utomated message] The Eosinophils) system which ge nerated this result tra nsmitted reference range : <=4.0. The reference r hugo was not used to int erpret this result as normal/abnormal . [place] [address]-07-25 02:20:00 Test Item Value Reference Range Interpretation Comments Basophils (test code = 0.4 See_Comment [Aut omated message] The Basophils) system which ge nerated this result tra nsmitted reference range : <=1.0. The reference r hugo was not used to int erpret this result as normal/abnormal . [facility]UdwusqkNCMNIABWOL9000-04-10 02:20:00 Test Item Value Reference Range Interpretation Comments Neutrophils # (test code = Neutrophils 7.4 1.5-8.1 #) [facility]zb[facility]bmJWUNFDOAKZ6870-37-44 02:20:00 Test Item Value Reference Range Interpretation Comments Lymphocytes # (test code = Lymphocytes 0.7 1.0-5.5 #) [facility]DjqvyeaVBNVIJLFIT2833-16-20 02:20:00 Test Item Value Reference Range Interpretation Comments Monocytes # (test code 0.4 See_Comment [Aut omated message] The = Monocytes #) system which generated this result tra nsmitted reference range : <=0.8. The reference r hugo was not used to int erpret this result as normal/abnormal . [facility] CampusFfabwwwVDHFKZGEDB9817-54-84 02:20:00 Test Item Value Reference Range Interpretation Comments Microcyte (test code = 1+ *ABN*(06/12/22 Microcyte) 9:20 PM) [facility]CARD[facility] [id number] 02:20:00 Test Item Value Reference Range Interpretation Comments HS Troponin I (test code = HS Troponin 52 I) [facility] [id number] 02:20:00 Test Item Value Reference Range Interpretation Comments Glucose Lvl (test code = Glucose Lvl) 103 70-99 [facility] [id number] 02:20:00 Test Item Value Reference Range Interpretation Comments BUN (test code = BUN) 22 7-22 [facility] [id number] 02:20:00 Test Item Value Reference Range Interpretation Comments Creatinine Lvl (test code = Creatinine 0.90 0.50-1.40 Lvl) [facility] [id number] 02:20:00 Test Item Value Reference Range Interpretation Comments Sodium Lvl (test code = Sodium Lvl) 131 135-145 [facility] [id number] 02:20:00 Test Item Value Reference Range Interpretation Comments Potassium Lvl (test code = Potassium 4.2 3.5-5.1 Lvl) [facility] [id number] 02:20:00 Test Item Value Reference Range Interpretation Comments Chloride Lvl (test code = Chloride Lvl) 97 95-109 [facility] [id number] 02:20:00 Test Item Value Reference Range Interpretation Comments CO2 (test code = CO2) 26 24-32 [facility]IR[facility]DA[place] [id number] 02:20:00 Test Item Value Reference Range Interpretation Comments Calcium Lvl (test code = Calcium Lvl) 8.7 8.5-10.5 [facility] [id number] 02:20:00 Test Item Value Reference Range Interpretation Comments Total Protein (test code = Total 7.0 6.4-8.4 Protein) [facility]ENTERGUJCW6009-49-77 02:20:00 Test Item Value Reference Range Interpretation Comments Albumin Lvl (test code = Albumin Lvl) 3.4 3.5-5.0 [facility] [id number] 02:20:00 Test Item Value Reference Range Interpretation Comments ALT (test code = ALT) 18 See_Comment [Auto mated message] The system which ge nerated this result transmit lavon reference range : <=65. The reference range was not used to interpr et this result as dionne l/abnormal. [facility] [id number] 02:20:00 Test Item Value Reference Range Interpretation Comments AST (test code = AST) 27 See_Comment [Auto mated message] The system which ge nerated this result transmit lavon reference range : <=37. The reference range was not used to interpr et this result as dionne l/abnormal. [facility] [id number] 02:20:00 Test Item Value Reference Range Interpretation Comments Alk Phos (test code = Alk Phos) 57 39-136 [facility] [id number] 02:20:00 Test Item Value Reference Range Interpretation Comments Bili Total (test code = Bili Total) 1.0 0.2-1.3 [facility] [id number] 02:20:00 Test Item Value Reference Range Interpretation Comments AGAP (test code = AGAP) 12.2 10.0-20.0 [facility] [id number] 02:20:00 Test Item Value Reference Range Interpretation Comments B/C Ratio (test code = B/C Ratio) 24 1 6-25 [facility]2022-07-25 02:20:00 Test Item Value Reference Range Interpretation Comments Globulin (test code = Globulin) 3.6 2.7-4.2 [facility]2022-07-25 02:20:00 Test Item Value Reference Range Interpretation Comments A/G Ratio (test code = A/G Ratio) 0.9 1 0.7-1.6 [place] 480482-07-25 02:20:00 Test Item Value Reference Range Interpretation Comments eGFR (test code = eGFR) 62 [place] 325412-07-25 02:20:00 Test Item Value Reference Range Interpretation Comments WBC (test code = WBC) 8.6 3.7-10.4 [place] 325412-07-25 02:20:00 Test Item Value Reference Range Interpretation Comments RBC (test code = RBC) 3.58 4.20-5.40 [place] 325412-07-25 02:20:00 Test Item Value Reference Range Interpretation Comments Hgb (test code = Hgb) 8.8 12.0-16.0 [place] 325412-07-25 02:20:00 Test Item Value Reference Range Interpretation Comments Hct (test code = Hct) 27.1 36.0-48.0 [place] 325412-07-25 02:20:00 Test Item Value Reference Range Interpretation Comments MCV (test code = MCV) 75.6 80.0-98.0 [place] 325412-07-25 02:20:00 Test Item Value Reference Range Interpretation Comments MCH (test code = MCH) 24.5 pg 27.0-31.0 [place] 325412-07-25 02:20:00 Test Item Value Reference Range Interpretation Comments MCHC (test code = MCHC) 32.4 32.0-36.0 [place] 325412-07-25 02:20:00 Test Item Value Reference Range Interpretation Comments RDW (test code = RDW) 21.1 11.5-14.5 [place] 325412-07-25 02:20:00 Test Item Value Reference Range Interpretation Comments Platelet (test code = Platelet) 297 133-450 [facility] CampusMqevzjbRPQZVPVRHR3033-44-66 02:20:00 Test Item Value Reference Range Interpretation Comments MPV (test code = MPV) 7.5 7.4-10.4 [facility] CampusKnnrxarTREMRGWVSX4521-36-06 02:20:00 Test Item Value Reference Range Interpretation Comments Segs (test code = Segs) 85.8 45.0-75.0 [facility] [facility] [id number] 02:20:00 Test Item Value Reference Range Interpretation Comments Lymphocytes (test code = Lymphocytes) 8.5 20.0-40.0 [place] 325412-07-25 02:20:00 Test Item Value Reference Range Interpretation Comments Monocytes (test code = Monocytes) 5.0 2.0-12.0 [facility] [id number] 02:20:00 Test Item Value Reference Range Interpretation Comments Eosinophils (test code = 0.3 See_Comment [A utomated message] The Eosinophils) system which ge nerated this result tra nsmitted reference range : <=4.0. The reference r hugo was not used to int erpret this result as normal/abnormal . [facility] [id number] 02:20:00 Test Item Value Reference Range Interpretation Comments Basophils (test code = 0.4 See_Comment [Aut omated message] The Basophils) system which ge nerated this result tra nsmitted reference range : <=1.0. The reference r hugo was not used to int erpret this result as normal/abnormal . [facility] CampusSfcjnigCAZWNCBHRS7686-31-09 02:20:00 Test Item Value Reference Range Interpretation Comments Neutrophils # (test code = Neutrophils 7.4 1.5-8.1 #) [facility] CampusUmlbdkpBKCUPAFTZW9799-78-64 02:20:00 Test Item Value Reference Range Interpretation Comments Lymphocytes # (test code = Lymphocytes 0.7 1.0-5.5 #) [place] 325412-07-25 02:20:00 Test Item Value Reference Range Interpretation Comments Monocytes # (test code 0.4 See_Comment [Aut omated message] The = Monocytes #) system which generated this result tra nsmitted reference range : <=0.8. The reference r hugo was not used to int erpret this result as normal/abnormal . [place] 325412-07-25 02:20:00 Test Item Value Reference Range Interpretation Comments Microcyte (test code = 1+ *ABN*(06/12/22 Microcyte) 9:20 PM) [facility] [id number] 02:20:00 Test Item Value Reference Range Interpretation Comments HS Troponin I (test code = HS Troponin 52 I) [facility] [id number] 02:20:00 Test Item Value Reference Range Interpretation Comments Glucose Lvl (test code = Glucose Lvl) 103 70-99 [facility]2022-07-25 02:20:00 Test Item Value Reference Range Interpretation Comments BUN (test code = BUN) 22 7- [facility]2022-07-25 02:20:00 Test Item Value Reference Range Interpretation Comments Creatinine Lvl (test code = Creatinine 0.90 0.50-1.40 Lvl) [facility]2022-07-25 02:20:00 Test Item Value Reference Range Interpretation Comments Sodium Lvl (test code = Sodium Lvl) 131 135-145 [facility]2022-07-25 02:20:00 Test Item Value Reference Range Interpretation Comments Potassium Lvl (test code = Potassium 4.2 3.5-5.1 Lvl) [facility]2022-07-25 02:20:00 Test Item Value Reference Range Interpretation Comments Chloride Lvl (test code = Chloride Lvl) 97 95-109 [facility]2022-07-25 02:20:00 Test Item Value Reference Range Interpretation Comments CO2 (test code = CO2) 26 24-32 [facility]2022-07-25 02:20:00 Test Item Value Reference Range Interpretation Comments Calcium Lvl (test code = Calcium Lvl) 8.7 8.5-10.5 [facility]2022-07-25 02:20:00 Test Item Value Reference Range Interpretation Comments Total Protein (test code = Total 7.0 6.4-8.4 Protein) [facility]2022-07-25 02:20:00 Test Item Value Reference Range Interpretation Comments Albumin Lvl (test code = Albumin Lvl) 3.4 3.5-5.0 [facility]2022-07-25 02:20:00 Test Item Value Reference Range Interpretation Comments ALT (test code = ALT) 18 See_Comment [Auto mated message] The system which ge nerated this result transmit lavon reference range : <=65. The reference range was not used to interpr et this result as dionne l/abnormal. [place] 480482-07-25 02:20:00 Test Item Value Reference Range Interpretation Comments AST (test code = AST) 27 See_Comment [Auto mated message] The system which ge nerated this result transmit lavon reference range : <=37. The reference range was not used to interpr et this result as dionne l/abnormal. [place] 480482-07-25 02:20:00 Test Item Value Reference Range Interpretation Comments Alk Phos (test code = Alk Phos) 57 39-136 [place] 480482-07-25 02:20:00 Test Item Value Reference Range Interpretation Comments Bili Total (test code = Bili Total) 1.0 0.2-1.3 [place] 480482-07-25 02:20:00 Test Item Value Reference Range Interpretation Comments AGAP (test code = AGAP) 12.2 10.0-20.0 [place] 480482-07-25 02:20:00 Test Item Value Reference Range Interpretation Comments B/C Ratio (test code = B/C Ratio) 24 1 6-25 [place] [address]-07-25 02:20:00 Test Item Value Reference Range Interpretation Comments Globulin (test code = Globulin) 3.6 2.7-4.2 [place] 480482-07-25 02:20:00 Test Item Value Reference Range Interpretation Comments A/G Ratio (test code = A/G Ratio) 0.9 1 0.7-1.6 [place] 480482-07-25 02:20:00 Test Item Value Reference Range Interpretation Comments eGFR (test code = eGFR) 62 [place] 325412-07-25 02:20:00 Test Item Value Reference Range Interpretation Comments WBC (test code = WBC) 8.6 3.7-10.4 [place] 325412-07-25 02:20:00 Test Item Value Reference Range Interpretation Comments RBC (test code = RBC) 3.58 4.20-5.40 [place] 325412-07-25 02:20:00 Test Item Value Reference Range Interpretation Comments Hgb (test code = Hgb) 8.8 12.0-16.0 [place] 325412-07-25 02:20:00 Test Item Value Reference Range Interpretation Comments Hct (test code = Hct) 27.1 36.0-48.0 [place] 325412-07-25 02:20:00 Test Item Value Reference Range Interpretation Comments MCV (test code = MCV) 75.6 80.0-98.0 [place] 325412-07-25 02:20:00 Test Item Value Reference Range Interpretation Comments MCH (test code = MCH) 24.5 pg 27.0-31.0 [place] 325412-07-25 02:20:00 Test Item Value Reference Range Interpretation Comments MCHC (test code = MCHC) 32.4 32.0-36.0 [place] 325412-07-25 02:20:00 Test Item Value Reference Range Interpretation Comments RDW (test code = RDW) 21.1 11.5-14.5 [place] 325412-07-25 02:20:00 Test Item Value Reference Range Interpretation Comments Platelet (test code = Platelet) 297 133-450 [facility] CampusNbofmgzROCVZLMPUY0815-99-01 02:20:00 Test Item Value Reference Range Interpretation Comments MPV (test code = MPV) 7.5 7.4-10.4 [place] 325412-07-25 02:20:00 Test Item Value Reference Range Interpretation Comments Segs (test code = Segs) 85.8 45.0-75.0 [facility] C[id number] 02:20:00 Test Item Value Reference Range Interpretation Comments Lymphocytes (test code = Lymphocytes) 8.5 20.0-40.0 [place] 325412-07-25 02:20:00 Test Item Value Reference Range Interpretation Comments Monocytes (test code = Monocytes) 5.0 2.0-12.0 [place] [address]-07-25 02:20:00 Test Item Value Reference Range Interpretation Comments Eosinophils (test code = 0.3 See_Comment [A utomated message] The Eosinophils) system which ge nerated this result tra nsmitted reference range : <=4.0. The reference r hugo was not used to int erpret this result as normal/abnormal . [place] 325412-07-25 02:20:00 Test Item Value Reference Range Interpretation Comments Basophils (test code = 0.4 See_Comment [Aut omated message] The Basophils) system which ge nerated this result tra nsmitted reference range : <=1.0. The reference r hugo was not used to int erpret this result as normal/abnormal . [facility] CampusVvwpnqkYLOPHHRLEN5005-68-10 02:20:00 Test Item Value Reference Range Interpretation Comments Neutrophils # (test code = Neutrophils 7.4 1.5-8.1 #) [facility]CTMZFWLHEF3670-14-38 02:20:00 Test Item Value Reference Range Interpretation Comments Lymphocytes # (test code = Lymphocytes 0.7 1.0-5.5 #) [facility] CampusTwzupwoFQNUYNDOQZ3895-02-10 02:20:00 Test Item Value Reference Range Interpretation Comments Monocytes # (test code 0.4 See_Comment [Aut omated message] The = Monocytes #) system which generated this result tra nsmitted reference range : <=0.8. The reference r hugo was not used to int erpret this result as normal/abnormal . [facility] CampusXxpedjvLGWCRCKQMK5956-43-29 02:20:00 Test Item Value Reference Range Interpretation Comments Microcyte (test code = 1+ *ABN*(06/12/22 Microcyte) 9:20 PM) [facility] HospitalPegasus BiologicsDIAC [id number] 02:20:00 Test Item Value Reference Range Interpretation Comments HS Troponin I (test code = HS Troponin 52 I) [facility] [id number] 02:20:00 Test Item Value Reference Range Interpretation Comments Glucose Lvl (test code = Glucose Lvl) 103 70-99 [facility] [id number] 02:20:00 Test Item Value Reference Range Interpretation Comments BUN (test code = BUN) 22 7-22 [facility] [id number] 02:20:00 Test Item Value Reference Range Interpretation Comments Creatinine Lvl (test code = Creatinine 0.90 0.50-1.40 Lvl) [facility] [id number] 02:20:00 Test Item Value Reference Range Interpretation Comments Sodium Lvl (test code = Sodium Lvl) 131 135-145 [facility] [id number] 02:20:00 Test Item Value Reference Range Interpretation Comments Potassium Lvl (test code = Potassium 4.2 3.5-5.1 Lvl) [place] 480482-07-25 02:20:00 Test Item Value Reference Range Interpretation Comments Chloride Lvl (test code = Chloride Lvl) 97 95-109 [place] 480482-07-25 02:20:00 Test Item Value Reference Range Interpretation Comments CO2 (test code = CO2) 26 24-32 [place] 480482-07-25 02:20:00 Test Item Value Reference Range Interpretation Comments Calcium Lvl (test code = Calcium Lvl) 8.7 8.5-10.5 [place] 480482-07-25 02:20:00 Test Item Value Reference Range Interpretation Comments Total Protein (test code = Total 7.0 6.4-8.4 Protein) [place] 480482-07-25 02:20:00 Test Item Value Reference Range Interpretation Comments Albumin Lvl (test code = Albumin Lvl) 3.4 3.5-5.0 [place] 480482-07-25 02:20:00 Test Item Value Reference Range Interpretation Comments ALT (test code = ALT) 18 See_Comment [Auto mated message] The system which ge nerated this result transmit lavon reference range : <=65. The reference range was not used to interpr et this result as dionne l/abnormal. [place] 480482-07-25 02:20:00 Test Item Value Reference Range Interpretation Comments AST (test code = AST) 27 See_Comment [Auto mated message] The system which ge nerated this result transmit lavon reference range : <=37. The reference range was not used to interpr et this result as dionne l/abnormal. [place] 480482-07-25 02:20:00 Test Item Value Reference Range Interpretation Comments Alk Phos (test code = Alk Phos) 57 39-136 [place] 480482-07-25 02:20:00 Test Item Value Reference Range Interpretation Comments Bili Total (test code = Bili Total) 1.0 0.2-1.3 [place] 480482-07-25 02:20:00 Test Item Value Reference Range Interpretation Comments AGAP (test code = AGAP) 12.2 10.0-20.0 [facility]2022-07-25 02:20:00 Test Item Value Reference Range Interpretation Comments B/C Ratio (test code = B/C Ratio) 24 1 6-25 [place] 480482-07-25 02:20:00 Test Item Value Reference Range Interpretation Comments Globulin (test code = Globulin) 3.6 2.7-4.2 [place] 480482-07-25 02:20:00 Test Item Value Reference Range Interpretation Comments A/G Ratio (test code = A/G Ratio) 0.9 1 0.7-1.6 [place] 480482-07-25 02:20:00 Test Item Value Reference Range Interpretation Comments eGFR (test code = eGFR) 62 [place] 325412-07-25 02:20:00 Test Item Value Reference Range Interpretation Comments WBC (test code = WBC) 8.6 3.7-10.4 [place] 325412-07-25 02:20:00 Test Item Value Reference Range Interpretation Comments RBC (test code = RBC) 3.58 4.20-5.40 [place] 325412-07-25 02:20:00 Test Item Value Reference Range Interpretation Comments Hgb (test code = Hgb) 8.8 12.0-16.0 [place] 325412-07-25 02:20:00 Test Item Value Reference Range Interpretation Comments Hct (test code = Hct) 27.1 36.0-48.0 [place] 325412-07-25 02:20:00 Test Item Value Reference Range Interpretation Comments MCV (test code = MCV) 75.6 80.0-98.0 [place] 325412-07-25 02:20:00 Test Item Value Reference Range Interpretation Comments MCH (test code = MCH) 24.5 pg 27.0-31.0 [place] 325412-07-25 02:20:00 Test Item Value Reference Range Interpretation Comments MCHC (test code = MCHC) 32.4 32.0-36.0 [place] 325412-07-25 02:20:00 Test Item Value Reference Range Interpretation Comments RDW (test code = RDW) 21.1 11.5-14.5 [place] 325412-07-25 02:20:00 Test Item Value Reference Range Interpretation Comments Platelet (test code = Platelet) 297 133-450 [facility] CampusSkgrptiSGZMWTKQAQ7886-93-18 02:20:00 Test Item Value Reference Range Interpretation Comments MPV (test code = MPV) 7.5 7.4-10.4 [facility] CampusEzrchxzXTXVELSEVB9094-74-84 02:20:00 Test Item Value Reference Range Interpretation Comments Segs (test code = Segs) 85.8 45.0-75.0 [facility] CampusBabmaerYOMTJTUYWJ8801-16-03 02:20:00 Test Item Value Reference Range Interpretation Comments Lymphocytes (test code = Lymphocytes) 8.5 20.0-40.0 [place] 325412-07-25 02:20:00 Test Item Value Reference Range Interpretation Comments Monocytes (test code = Monocytes) 5.0 2.0-12.0 [facility] [id number] 02:20:00 Test Item Value Reference Range Interpretation Comments Eosinophils (test code = 0.3 See_Comment [A utomated message] The Eosinophils) system which ge nerated this result tra nsmitted reference range : <=4.0. The reference r hugo was not used to int erpret this result as normal/abnormal . [facility] C[id number] 02:20:00 Test Item Value Reference Range Interpretation Comments Basophils (test code = 0.4 See_Comment [Aut omated message] The Basophils) system which ge nerated this result tra nsmitted reference range : <=1.0. The reference r hugo was not used to int erpret this result as normal/abnormal . [facility] C[id number] 02:20:00 Test Item Value Reference Range Interpretation Comments Neutrophils # (test code = Neutrophils 7.4 1.5-8.1 #) [place] 325412-07-25 02:20:00 Test Item Value Reference Range Interpretation Comments Lymphocytes # (test code = Lymphocytes 0.7 1.0-5.5 #) [place] 325412-07-25 02:20:00 Test Item Value Reference Range Interpretation Comments Monocytes # (test code 0.4 See_Comment [Aut omated message] The = Monocytes #) system which generated this result tra nsmitted reference range : <=0.8. The reference r hugo was not used to int erpret this result as normal/abnormal . [facility] HospitalMfzlqrtOJMPAQSKHZ5922-71-07 02:20:00 Test Item Value Reference Range Interpretation Comments Microcyte (test code = 1+ *ABN*(06/12/22 Microcyte) 9:20 PM) [facility] [id number] 02:20:00 Test Item Value Reference Range Interpretation Comments HS Troponin I (test code = HS Troponin 52 I) [facility] [id number] 02:20:00 Test Item Value Reference Range Interpretation Comments Glucose Lvl (test code = Glucose Lvl) 103 70-99 [facility]2022-07-25 02:20:00 Test Item Value Reference Range Interpretation Comments BUN (test code = BUN) 22 06-10 [facility]2022-07-25 02:20:00 Test Item Value Reference Range Interpretation Comments Creatinine Lvl (test code = Creatinine 0.90 0.50-1.40 Lvl) [facility]2022-07-25 02:20:00 Test Item Value Reference Range Interpretation Comments Sodium Lvl (test code = Sodium Lvl) 131 135-145 [facility]2022-07-25 02:20:00 Test Item Value Reference Range Interpretation Comments Potassium Lvl (test code = Potassium 4.2 3.5-5.1 Lvl) [facility]2022-07-25 02:20:00 Test Item Value Reference Range Interpretation Comments Chloride Lvl (test code = Chloride Lvl) 97 95-109 [facility]2022-07-25 02:20:00 Test Item Value Reference Range Interpretation Comments CO2 (test code = CO2) 24-32 [facility]2022-07-25 02:20:00 Test Item Value Reference Range Interpretation Comments Calcium Lvl (test code = Calcium Lvl) 8.7 8.5-10.5 [facility]2022-07-25 02:20:00 Test Item Value Reference Range Interpretation Comments Total Protein (test code = Total 7.0 6.4-8.4 Protein) [facility]2022-07-25 02:20:00 Test Item Value Reference Range Interpretation Comments Albumin Lvl (test code = Albumin Lvl) 3.4 3.5-5.0 [facility]2022-07-25 02:20:00 Test Item Value Reference Range Interpretation Comments ALT (test code = ALT) 18 See_Comment [Auto mated message] The system which ge nerated this result transmit lavon reference range : <=65. The reference range was not used to interpr et this result as dionne l/abnormal. [facility] [id number] 02:20:00 Test Item Value Reference Range Interpretation Comments AST (test code = AST) 27 See_Comment [Auto mated message] The system which ge nerated this result transmit lavon reference range : <=37. The reference range was not used to interpr et this result as dionne l/abnormal. [facility] [id number] 02:20:00 Test Item Value Reference Range Interpretation Comments Alk Phos (test code = Alk Phos) 57 39-136 [facility] [id number] 02:20:00 Test Item Value Reference Range Interpretation Comments Bili Total (test code = Bili Total) 1.0 0.2-1.3 [facility] [id number] 02:20:00 Test Item Value Reference Range Interpretation Comments AGAP (test code = AGAP) 12.2 10.0-20.0 [facility] [id number] 02:20:00 Test Item Value Reference Range Interpretation Comments B/C Ratio (test code = B/C Ratio) 24 1 6-25 [facility] [id number] 02:20:00 Test Item Value Reference Range Interpretation Comments Globulin (test code = Globulin) 3.6 2.7-4.2 [facility] [id number] 02:20:00 Test Item Value Reference Range Interpretation Comments A/G Ratio (test code = A/G Ratio) 0.9 1 0.7-1.6 [facility] [id number] 02:20:00 Test Item Value Reference Range Interpretation Comments eGFR (test code = eGFR) 62 [place] 325412-07-25 02:20:00 Test Item Value Reference Range Interpretation Comments WBC (test code = WBC) 8.6 3.7-10.4 [facility] Ho[id number] 02:20:00 Test Item Value Reference Range Interpretation Comments RBC (test code = RBC) 3.58 4.20-5.40 [place] 325412-07-25 02:20:00 Test Item Value Reference Range Interpretation Comments Hgb (test code = Hgb) 8.8 12.0-16.0 [place] 325412-07-25 02:20:00 Test Item Value Reference Range Interpretation Comments Hct (test code = Hct) 27.1 36.0-48.0 [facility] [id number] 02:20:00 Test Item Value Reference Range Interpretation Comments MCV (test code = MCV) 75.6 80.0-98.0 [facility] [id number] 02:20:00 Test Item Value Reference Range Interpretation Comments MCH (test code = MCH) 24.5 pg 27.0-31.0 [facility] CampusMeilakhRWUSSXEYQS1565-33-21 02:20:00 Test Item Value Reference Range Interpretation Comments MCHC (test code = MCHC) 32.4 32.0-36.0 [facility] CampusJgotfkuHBFXHTPWLQ7061-45-29 02:20:00 Test Item Value Reference Range Interpretation Comments RDW (test code = RDW) 21.1 11.5-14.5 [facility] CampusQenfzsvTRUDQMKYXS9203-84-05 02:20:00 Test Item Value Reference Range Interpretation Comments Platelet (test code = Platelet) 297 133-450 [facility] [id number] 02:20:00 Test Item Value Reference Range Interpretation Comments MPV (test code = MPV) 7.5 7.4-10.4 [facility] [id number] 02:20:00 Test Item Value Reference Range Interpretation Comments Segs (test code = Segs) 85.8 45.0-75.0 [facility] Camp[id number] 02:20:00 Test Item Value Reference Range Interpretation Comments Lymphocytes (test code = Lymphocytes) 8.5 20.0-40.0 [place] 325412-07-25 02:20:00 Test Item Value Reference Range Interpretation Comments Monocytes (test code = Monocytes) 5.0 2.0-12.0 [place] 325412-07-25 02:20:00 Test Item Value Reference Range Interpretation Comments Eosinophils (test code = 0.3 See_Comment [A utomated message] The Eosinophils) system which ge nerated this result tra nsmitted reference range : <=4.0. The reference r hugo was not used to int erpret this result as normal/abnormal . [facility] [id number] 02:20:00 Test Item Value Reference Range Interpretation Comments Basophils (test code = 0.4 See_Comment [Aut omated message] The Basophils) system which ge nerated this result tra nsmitted reference range : <=1.0. The reference r hugo was not used to int erpret this result as normal/abnormal . [facility] C[id number] 02:20:00 Test Item Value Reference Range Interpretation Comments Neutrophils # (test code = Neutrophils 7.4 1.5-8.1 #) [facility] [id number] 02:20:00 Test Item Value Reference Range Interpretation Comments Lymphocytes # (test code = Lymphocytes 0.7 1.0-5.5 #) [facility] [id number] 02:20:00 Test Item Value Reference Range Interpretation Comments Monocytes # (test code 0.4 See_Comment [Aut omated message] The = Monocytes #) system which generated this result tra nsmitted reference range : <=0.8. The reference r hugo was not used to int erpret this result as normal/abnormal . [facility] [id number] 02:20:00 Test Item Value Reference Range Interpretation Comments Microcyte (test code = 1+ *ABN*(06/12/22 Microcyte) 9:20 PM) [facility] [id number] 02:20:00 Test Item Value Reference Range Interpretation Comments HS Troponin I (test code = HS Troponin 52 I) [facility] [id number] 02:20:00 Test Item Value Reference Range Interpretation Comments Glucose Lvl (test code = Glucose Lvl) 103 70-99 [facility] [id number] 02:20:00 Test Item Value Reference Range Interpretation Comments BUN (test code = BUN) 22 - [facility] [id number] 02:20:00 Test Item Value Reference Range Interpretation Comments Creatinine Lvl (test code = Creatinine 0.90 0.50-1.40 Lvl) [facility] [id number] 02:20:00 Test Item Value Reference Range Interpretation Comments Sodium Lvl (test code = Sodium Lvl) 131 135-145 [place] 480482-07-25 02:20:00 Test Item Value Reference Range Interpretation Comments Potassium Lvl (test code = Potassium 4.2 3.5-5.1 Lvl) [place] 480482-07-25 02:20:00 Test Item Value Reference Range Interpretation Comments Chloride Lvl (test code = Chloride Lvl) 97 95-109 [facility] [id number] 02:20:00 Test Item Value Reference Range Interpretation Comments CO2 (test code = CO2) 26 24-32 [place] 480482-07-25 02:20:00 Test Item Value Reference Range Interpretation Comments Calcium Lvl (test code = Calcium Lvl) 8.7 8.5-10.5 [place] 480482-07-25 02:20:00 Test Item Value Reference Range Interpretation Comments Total Protein (test code = Total 7.0 6.4-8.4 Protein) [place] 480482-07-25 02:20:00 Test Item Value Reference Range Interpretation Comments Albumin Lvl (test code = Albumin Lvl) 3.4 3.5-5.0 [place] 480482-07-25 02:20:00 Test Item Value Reference Range Interpretation Comments ALT (test code = ALT) 18 See_Comment [Auto mated message] The system which ge nerated this result transmit lavon reference range : <=65. The reference range was not used to interpr et this result as dionne l/abnormal. [facility] [id number] 02:20:00 Test Item Value Reference Range Interpretation Comments AST (test code = AST) 27 See_Comment [Auto mated message] The system which ge nerated this result transmit lavon reference range : <=37. The reference range was not used to interpr et this result as dionne l/abnormal. [facility] [id number] 02:20:00 Test Item Value Reference Range Interpretation Comments Alk Phos (test code = Alk Phos) 57 39-136 [facility] [id number] 02:20:00 Test Item Value Reference Range Interpretation Comments Bili Total (test code = Bili Total) 1.0 0.2-1.3 [place] 480482-07-25 02:20:00 Test Item Value Reference Range Interpretation Comments AGAP (test code = AGAP) 12.2 10.0-20.0 [place] 480482-07-25 02:20:00 Test Item Value Reference Range Interpretation Comments B/C Ratio (test code = B/C Ratio) 24 1 6-25 [place] 480482-07-25 02:20:00 Test Item Value Reference Range Interpretation Comments Globulin (test code = Globulin) 3.6 2.7-4.2 [place] 480482-07-25 02:20:00 Test Item Value Reference Range Interpretation Comments A/G Ratio (test code = A/G Ratio) 0.9 1 0.7-1.6 [place] 480482-07-25 02:20:00 Test Item Value Reference Range Interpretation Comments eGFR (test code = eGFR) 62 [place] 325412-07-25 02:20:00 Test Item Value Reference Range Interpretation Comments WBC (test code = WBC) 8.6 3.7-10.4 [place] 325412-07-25 02:20:00 Test Item Value Reference Range Interpretation Comments RBC (test code = RBC) 3.58 4.20-5.40 [place] 325412-07-25 02:20:00 Test Item Value Reference Range Interpretation Comments Hgb (test code = Hgb) 8.8 12.0-16.0 [place] 325412-07-25 02:20:00 Test Item Value Reference Range Interpretation Comments Hct (test code = Hct) 27.1 36.0-48.0 [place] 325412-07-25 02:20:00 Test Item Value Reference Range Interpretation Comments MCV (test code = MCV) 75.6 80.0-98.0 [place] 325412-07-25 02:20:00 Test Item Value Reference Range Interpretation Comments MCH (test code = MCH) 24.5 pg 27.0-31.0 [place] 325412-07-25 02:20:00 Test Item Value Reference Range Interpretation Comments MCHC (test code = MCHC) 32.4 32.0-36.0 [place] 325412-07-25 02:20:00 Test Item Value Reference Range Interpretation Comments RDW (test code = RDW) 21.1 11.5-14.5 [place] 325412-07-25 02:20:00 Test Item Value Reference Range Interpretation Comments Platelet (test code = Platelet) 297 133-450 [place] 325412-07-25 02:20:00 Test Item Value Reference Range Interpretation Comments MPV (test code = MPV) 7.5 7.4-10.4 [place] 325412-07-25 02:20:00 Test Item Value Reference Range Interpretation Comments Segs (test code = Segs) 85.8 45.0-75.0 [place] 325412-07-25 02:20:00 Test Item Value Reference Range Interpretation Comments Lymphocytes (test code = Lymphocytes) 8.5 20.0-40.0 [place] 325412-07-25 02:20:00 Test Item Value Reference Range Interpretation Comments Monocytes (test code = Monocytes) 5.0 2.0-12.0 [place] 325412-07-25 02:20:00 Test Item Value Reference Range Interpretation Comments Eosinophils (test code = 0.3 See_Comment [A utomated message] The Eosinophils) system which ge nerated this result tra nsmitted reference range : <=4.0. The reference r hugo was not used to int erpret this result as normal/abnormal . [facility] [id number] 02:20:00 Test Item Value Reference Range Interpretation Comments Basophils (test code = 0.4 See_Comment [Aut omated message] The Basophils) system which ge nerated this result tra nsmitted reference range : <=1.0. The reference r hugo was not used to int erpret this result as normal/abnormal . [place] 325412-07-25 02:20:00 Test Item Value Reference Range Interpretation Comments Neutrophils # (test code = Neutrophils 7.4 1.5-8.1 #) [place] 325412-07-25 02:20:00 Test Item Value Reference Range Interpretation Comments Lymphocytes # (test code = Lymphocytes 0.7 1.0-5.5 #) [place] 325412-07-25 02:20:00 Test Item Value Reference Range Interpretation Comments Monocytes # (test code 0.4 See_Comment [Aut omated message] The = Monocytes #) system which generated this result tra nsmitted reference range : <=0.8. The reference r hugo was not used to int erpret this result as normal/abnormal . [facility] HospitalStncxpxSIRMWPONRG1745-06-27 02:20:00 Test Item Value Reference Range Interpretation Comments Microcyte (test code = 1+ *ABN*(06/12/22 Microcyte) 9:20 PM) [facility]CARD[facility] [id number] 02:20:00 Test Item Value Reference Range Interpretation Comments HS Troponin I (test code = HS Troponin 52 I) [facility] [id number] 02:20:00 Test Item Value Reference Range Interpretation Comments Glucose Lvl (test code = Glucose Lvl) 103 70-99 [facility]2022-07-25 02:20:00 Test Item Value Reference Range Interpretation Comments BUN (test code = BUN) 22 - [facility]2022-07-25 02:20:00 Test Item Value Reference Range Interpretation Comments Creatinine Lvl (test code = Creatinine 0.90 0.50-1.40 Lvl) [facility]2022-07-25 02:20:00 Test Item Value Reference Range Interpretation Comments Sodium Lvl (test code = Sodium Lvl) 131 135-145 [facility]2022-07-25 02:20:00 Test Item Value Reference Range Interpretation Comments Potassium Lvl (test code = Potassium 4.2 3.5-5.1 Lvl) [facility]2022-07-25 02:20:00 Test Item Value Reference Range Interpretation Comments Chloride Lvl (test code = Chloride Lvl) 97 95-109 [facility]2022-07-25 02:20:00 Test Item Value Reference Range Interpretation Comments CO2 (test code = CO2) 26 24-32 [facility]2022-07-25 02:20:00 Test Item Value Reference Range Interpretation Comments Calcium Lvl (test code = Calcium Lvl) 8.7 8.5-10.5 [facility]2022-07-25 02:20:00 Test Item Value Reference Range Interpretation Comments Total Protein (test code = Total 7.0 6.4-8.4 Protein) [facility]2022-07-25 02:20:00 Test Item Value Reference Range Interpretation Comments Albumin Lvl (test code = Albumin Lvl) 3.4 3.5-5.0 [place] 480482-07-25 02:20:00 Test Item Value Reference Range Interpretation Comments ALT (test code = ALT) 18 See_Comment [Auto mated message] The system which ge nerated this result transmit lavon reference range : <=65. The reference range was not used to interpr et this result as dionne l/abnormal. [place] 480482-07-25 02:20:00 Test Item Value Reference Range Interpretation Comments AST (test code = AST) 27 See_Comment [Auto mated message] The system which ge nerated this result transmit lavon reference range : <=37. The reference range was not used to interpr et this result as dionne l/abnormal. [place] 480482-07-25 02:20:00 Test Item Value Reference Range Interpretation Comments Alk Phos (test code = Alk Phos) 57 39-136 [place] 480482-07-25 02:20:00 Test Item Value Reference Range Interpretation Comments Bili Total (test code = Bili Total) 1.0 0.2-1.3 [place] 480482-07-25 02:20:00 Test Item Value Reference Range Interpretation Comments AGAP (test code = AGAP) 12.2 10.0-20.0 [place] 480482-07-25 02:20:00 Test Item Value Reference Range Interpretation Comments B/C Ratio (test code = B/C Ratio) 24 1 6-25 [place] 480482-07-25 02:20:00 Test Item Value Reference Range Interpretation Comments Globulin (test code = Globulin) 3.6 2.7-4.2 [place] 480482-07-25 02:20:00 Test Item Value Reference Range Interpretation Comments A/G Ratio (test code = A/G Ratio) 0.9 1 0.7-1.6 [place] 480482-07-25 02:20:00 Test Item Value Reference Range Interpretation Comments eGFR (test code = eGFR) 62 [facility] CampusLyesaxeOGBULWYUIQ5688-08-25 02:20:00 Test Item Value Reference Range Interpretation Comments WBC (test code = WBC) 8.6 3.7-10.4 [facility] C[id number] 02:20:00 Test Item Value Reference Range Interpretation Comments RBC (test code = RBC) 3.58 4.20-5.40 [facility] CampusFsijkkhOGTLUJXTVL2656-89-04 02:20:00 Test Item Value Reference Range Interpretation Comments Hgb (test code = Hgb) 8.8 12.0-16.0 [place] 325412-07-25 02:20:00 Test Item Value Reference Range Interpretation Comments Hct (test code = Hct) 27.1 36.0-48.0 [facility] CampusJxmhflpBXOEEPKTRW9615-64-32 02:20:00 Test Item Value Reference Range Interpretation Comments MCV (test code = MCV) 75.6 80.0-98.0 [facility] CampusVczbplmURZJIDSOPY7791-08-29 02:20:00 Test Item Value Reference Range Interpretation Comments MCH (test code = MCH) 24.5 pg 27.0-31.0 [facility] CampusEwsfaujGDAXYDCUHK8394-32-57 02:20:00 Test Item Value Reference Range Interpretation Comments MCHC (test code = MCHC) 32.4 32.0-36.0 [facility] CampusSohjmehVDZSJQQVGI2060-96-62 02:20:00 Test Item Value Reference Range Interpretation Comments RDW (test code = RDW) 21.1 11.5-14.5 [facility] CampusWitormiRPKSCXOAWK7787-60-41 02:20:00 Test Item Value Reference Range Interpretation Comments Platelet (test code = Platelet) 297 133-450 [facility] CampusYdpwiosHWRICVYZQN6863-84-74 02:20:00 Test Item Value Reference Range Interpretation Comments MPV (test code = MPV) 7.5 7.4-10.4 [place] 325412-07-25 02:20:00 Test Item Value Reference Range Interpretation Comments Segs (test code = Segs) 85.8 45.0-75.0 [place] 325412-07-25 02:20:00 Test Item Value Reference Range Interpretation Comments Lymphocytes (test code = Lymphocytes) 8.5 20.0-40.0 [place] 325412-07-25 02:20:00 Test Item Value Reference Range Interpretation Comments Monocytes (test code = Monocytes) 5.0 2.0-12.0 [place] 325412-07-25 02:20:00 Test Item Value Reference Range Interpretation Comments Eosinophils (test code = 0.3 See_Comment [A utomated message] The Eosinophils) system which ge nerated this result tra nsmitted reference range : <=4.0. The reference r hugo was not used to int erpret this result as normal/abnormal . [facility] CampusVptnqhwAJWDLAVLMV8838-25-05 02:20:00 Test Item Value Reference Range Interpretation Comments Basophils (test code = 0.4 See_Comment [Aut omated message] The Basophils) system which ge nerated this result tra nsmitted reference range : <=1.0. The reference r hugo was not used to int erpret this result as normal/abnormal . [facility] CampusFrgiiggCRUOZNMLRZ0559-35-17 02:20:00 Test Item Value Reference Range Interpretation Comments Neutrophils # (test code = Neutrophils 7.4 1.5-8.1 #) [facility] C[id number] 02:20:00 Test Item Value Reference Range Interpretation Comments Lymphocytes # (test code = Lymphocytes 0.7 1.0-5.5 #) [facility] CampusWcbqpcjCCJFTSZIHW8273-26-95 02:20:00 Test Item Value Reference Range Interpretation Comments Monocytes # (test code 0.4 See_Comment [Aut omated message] The = Monocytes #) system which generated this result tra nsmitted reference range : <=0.8. The reference r hugo was not used to int erpret this result as normal/abnormal . [facility] C[id number] 02:20:00 Test Item Value Reference Range Interpretation Comments Microcyte (test code = 1+ *ABN*(06/12/22 Microcyte) 9:20 PM) [facility] [id number] 02:20:00 Test Item Value Reference Range Interpretation Comments HS Troponin I (test code = HS Troponin 52 I) [facility]Liquid[facility] [id number] 02:20:00 Test Item Value Reference Range Interpretation Comments Glucose Lvl (test code = Glucose Lvl) 103 70-99 [facility] [id number] 02:20:00 Test Item Value Reference Range Interpretation Comments BUN (test code = BUN) 22 7- [facility] [id number] 02:20:00 Test Item Value Reference Range Interpretation Comments Creatinine Lvl (test code = Creatinine 0.90 0.50-1.40 Lvl) [place] 480482-07-25 02:20:00 Test Item Value Reference Range Interpretation Comments Sodium Lvl (test code = Sodium Lvl) 131 135-145 [place] 480482-07-25 02:20:00 Test Item Value Reference Range Interpretation Comments Potassium Lvl (test code = Potassium 4.2 3.5-5.1 Lvl) [place] [address]-07-25 02:20:00 Test Item Value Reference Range Interpretation Comments Chloride Lvl (test code = Chloride Lvl) 97 95-109 [place] 480482-07-25 02:20:00 Test Item Value Reference Range Interpretation Comments CO2 (test code = CO2) 26 24-32 [place] 480482-07-25 02:20:00 Test Item Value Reference Range Interpretation Comments Calcium Lvl (test code = Calcium Lvl) 8.7 8.5-10.5 [place] 480482-07-25 02:20:00 Test Item Value Reference Range Interpretation Comments Total Protein (test code = Total 7.0 6.4-8.4 Protein) [place] 480482-07-25 02:20:00 Test Item Value Reference Range Interpretation Comments Albumin Lvl (test code = Albumin Lvl) 3.4 3.5-5.0 [place] 480482-07-25 02:20:00 Test Item Value Reference Range Interpretation Comments ALT (test code = ALT) 18 See_Comment [Auto mated message] The system which Neurosearch nerated this result transmit lavon reference range : <=65. The reference range was not used to interpr et this result as dionne l/abnormal. [place] 480482-07-25 02:20:00 Test Item Value Reference Range Interpretation Comments AST (test code = AST) 27 See_Comment [Auto mated message] The system which Neuro[employer] nerated this result transmit lavon reference range : <=37. The reference range was not used to interpr et this result as dionne l/abnormal. [place] 480482-07-25 02:20:00 Test Item Value Reference Range Interpretation Comments Alk Phos (test code = Alk Phos) 57 39-136 [place] 480482-07-25 02:20:00 Test Item Value Reference Range Interpretation Comments Bili Total (test code = Bili Total) 1.0 0.2-1.3 [place] 480482-07-25 02:20:00 Test Item Value Reference Range Interpretation Comments AGAP (test code = AGAP) 12.2 10.0-20.0 [place] 480482-07-25 02:20:00 Test Item Value Reference Range Interpretation Comments B/C Ratio (test code = B/C Ratio) 24 1 6-25 [place] 480482-07-25 02:20:00 Test Item Value Reference Range Interpretation Comments Globulin (test code = Globulin) 3.6 2.7-4.2 [place] 480482-07-25 02:20:00 Test Item Value Reference Range Interpretation Comments A/G Ratio (test code = A/G Ratio) 0.9 1 0.7-1.6 [place] 480482-07-25 02:20:00 Test Item Value Reference Range Interpretation Comments eGFR (test code = eGFR) 62 [place] 325412-07-25 02:20:00 Test Item Value Reference Range Interpretation Comments WBC (test code = WBC) 8.6 3.7-10.4 [place] 325412-07-25 02:20:00 Test Item Value Reference Range Interpretation Comments RBC (test code = RBC) 3.58 4.20-5.40 [place] 325412-07-25 02:20:00 Test Item Value Reference Range Interpretation Comments Hgb (test code = Hgb) 8.8 12.0-16.0 [place] 325412-07-25 02:20:00 Test Item Value Reference Range Interpretation Comments Hct (test code = Hct) 27.1 36.0-48.0 [place] 325412-07-25 02:20:00 Test Item Value Reference Range Interpretation Comments MCV (test code = MCV) 75.6 80.0-98.0 [place] [address]-07-25 02:20:00 Test Item Value Reference Range Interpretation Comments MCH (test code = MCH) 24.5 pg 27.0-31.0 [place] 325412-07-25 02:20:00 Test Item Value Reference Range Interpretation Comments MCHC (test code = MCHC) 32.4 32.0-36.0 [place] 325412-07-25 02:20:00 Test Item Value Reference Range Interpretation Comments RDW (test code = RDW) 21.1 11.5-14.5 [place] 325412-07-25 02:20:00 Test Item Value Reference Range Interpretation Comments Platelet (test code = Platelet) 297 133-450 [place] 325412-07-25 02:20:00 Test Item Value Reference Range Interpretation Comments MPV (test code = MPV) 7.5 7.4-10.4 [place] 325412-07-25 02:20:00 Test Item Value Reference Range Interpretation Comments Segs (test code = Segs) 85.8 45.0-75.0 [place] 325412-07-25 02:20:00 Test Item Value Reference Range Interpretation Comments Lymphocytes (test code = Lymphocytes) 8.5 20.0-40.0 [place] 325412-07-25 02:20:00 Test Item Value Reference Range Interpretation Comments Monocytes (test code = Monocytes) 5.0 2.0-12.0 [place] 325412-07-25 02:20:00 Test Item Value Reference Range Interpretation Comments Eosinophils (test code = 0.3 See_Comment [A utomated message] The Eosinophils) system which ge nerated this result tra nsmitted reference range : <=4.0. The reference r hugo was not used to int erpret this result as normal/abnormal . [facility] [id number] 02:20:00 Test Item Value Reference Range Interpretation Comments Basophils (test code = 0.4 See_Comment [Aut omated message] The Basophils) system which ge nerated this result tra nsmitted reference range : <=1.0. The reference r hugo was not used to int erpret this result as normal/abnormal . [place] 325412-07-25 02:20:00 Test Item Value Reference Range Interpretation Comments Neutrophils # (test code = Neutrophils 7.4 1.5-8.1 #) [place] 325412-07-25 02:20:00 Test Item Value Reference Range Interpretation Comments Lymphocytes # (test code = Lymphocytes 0.7 1.0-5.5 #) [facility]de[facility]bv[facility]HNW[facility]OKKU0562[facility]85-70 02:20:00 Test Item Value Reference Range Interpretation Comments Monocytes # (test code 0.4 See_Comment [Aut omated message] The = Monocytes #) system which generated this result tra nsmitted reference range : <=0.8. The reference r hugo was not used to int erpret this result as normal/abnormal . [facility] HospitalJpjcllzRZXSSWUYSO4755-15-09 02:20:00 Test Item Value Reference Range Interpretation Comments Microcyte (test code = 1+ *ABN*(06/12/22 Microcyte) 9:20 PM) [facility] [id number] 02:20:00 Test Item Value Reference Range Interpretation Comments HS Troponin I (test code = HS Troponin 52 I) [facility]2022-07-25 02:20:00 Test Item Value Reference Range Interpretation Comments Glucose Lvl (test code = Glucose Lvl) 103 70-99 [facility]2022-07-25 02:20:00 Test Item Value Reference Range Interpretation Comments BUN (test code = BUN) 22 7-22 [facility]2022-07-25 02:20:00 Test Item Value Reference Range Interpretation Comments Creatinine Lvl (test code = Creatinine 0.90 0.50-1.40 Lvl) [facility]2022-07-25 02:20:00 Test Item Value Reference Range Interpretation Comments Sodium Lvl (test code = Sodium Lvl) 131 135-145 [facility]2022-07-25 02:20:00 Test Item Value Reference Range Interpretation Comments Potassium Lvl (test code = Potassium 4.2 3.5-5.1 Lvl) [facility]2022-07-25 02:20:00 Test Item Value Reference Range Interpretation Comments Chloride Lvl (test code = Chloride Lvl) 97 95-109 [facility]2022-07-25 02:20:00 Test Item Value Reference Range Interpretation Comments CO2 (test code = CO2) 24-32 [facility]2022-07-25 02:20:00 Test Item Value Reference Range Interpretation Comments Calcium Lvl (test code = Calcium Lvl) 8.7 8.5-10.5 [facility]2022-07-25 02:20:00 Test Item Value Reference Range Interpretation Comments Total Protein (test code = Total 7.0 6.4-8.4 Protein) [facility] [id number] 02:20:00 Test Item Value Reference Range Interpretation Comments Albumin Lvl (test code = Albumin Lvl) 3.4 3.5-5.0 [facility] [id number] 02:20:00 Test Item Value Reference Range Interpretation Comments ALT (test code = ALT) 18 See_Comment [Auto mated message] The system which ge nerated this result transmit lavon reference range : <=65. The reference range was not used to interpr et this result as dionne l/abnormal. [facility] [employer] [id number] 02:20:00 Test Item Value Reference Range Interpretation Comments AST (test code = AST) 27 See_Comment [Auto mated message] The system which ge nerated this result transmit lavon reference range : <=37. The reference range was not used to interpr et this result as dionne l/abnormal. [facility] [employer] [id number] 02:20:00 Test Item Value Reference Range Interpretation Comments Alk Phos (test code = Alk Phos) 57 39-136 [facility] [id number] 02:20:00 Test Item Value Reference Range Interpretation Comments Bili Total (test code = Bili Total) 1.0 0.2-1.3 [facility] [id number] 02:20:00 Test Item Value Reference Range Interpretation Comments AGAP (test code = AGAP) 12.2 10.0-20.0 [facility] [id number] 02:20:00 Test Item Value Reference Range Interpretation Comments B/C Ratio (test code = B/C Ratio) 24 1 6-25 [facility] [id number] 02:20:00 Test Item Value Reference Range Interpretation Comments Globulin (test code = Globulin) 3.6 2.7-4.2 [facility] [id number] 02:20:00 Test Item Value Reference Range Interpretation Comments A/G Ratio (test code = A/G Ratio) 0.9 1 0.7-1.6 [facility] [id number] 02:20:00 Test Item Value Reference Range Interpretation Comments eGFR (test code = eGFR) 62 [facility] CampusIbngukeOXNWBRDTAX5302-96-90 02:20:00 Test Item Value Reference Range Interpretation Comments WBC (test code = WBC) 8.6 3.7-10.4 [facility] C[id number] 02:20:00 Test Item Value Reference Range Interpretation Comments RBC (test code = RBC) 3.58 4.20-5.40 [facility] [id number] 02:20:00 Test Item Value Reference Range Interpretation Comments Hgb (test code = Hgb) 8.8 12.0-16.0 [facility] CampusYhrrltwVVGLMOOSHM4266-98-45 02:20:00 Test Item Value Reference Range Interpretation Comments Hct (test code = Hct) 27.1 36.0-48.0 [facility] CampusOpbudbcJMKCCMKXKX8755-44-25 02:20:00 Test Item Value Reference Range Interpretation Comments MCV (test code = MCV) 75.6 80.0-98.0 [facility] [id number] 02:20:00 Test Item Value Reference Range Interpretation Comments MCH (test code = MCH) 24.5 pg 27.0-31.0 [facility] CampusMozcoqsKREGFHDRLE6281-05-98 02:20:00 Test Item Value Reference Range Interpretation Comments MCHC (test code = MCHC) 32.4 32.0-36.0 [facility] CampusQexyanjZZKNPMPRHR5546-38-07 02:20:00 Test Item Value Reference Range Interpretation Comments RDW (test code = RDW) 21.1 11.5-14.5 [facility] CampusEaykiquGMVNGOBZDE1187-65-21 02:20:00 Test Item Value Reference Range Interpretation Comments Platelet (test code = Platelet) 297 133-450 [facility] CampusSburcjcBSETAIURQD3266-36-64 02:20:00 Test Item Value Reference Range Interpretation Comments MPV (test code = MPV) 7.5 7.4-10.4 [facility] CampusTiyrquoDTGFESIHND6438-17-68 02:20:00 Test Item Value Reference Range Interpretation Comments Segs (test code = Segs) 85.8 45.0-75.0 [facility] CampusAzevtylJSFOUXYZKC8718-58-28 02:20:00 Test Item Value Reference Range Interpretation Comments Lymphocytes (test code = Lymphocytes) 8.5 20.0-40.0 [place] 325412-07-25 02:20:00 Test Item Value Reference Range Interpretation Comments Monocytes (test code = Monocytes) 5.0 2.0-12.0 [facility] CampusTvwrxffBMMRJMJVUJ6015-70-56 02:20:00 Test Item Value Reference Range Interpretation Comments Eosinophils (test code = 0.3 See_Comment [A utomated message] The Eosinophils) system which ge nerated this result tra nsmitted reference range : <=4.0. The reference r hugo was not used to int erpret this result as normal/abnormal . [facility] CampusVhcrxxaVDUVNKIDMZ5621-79-56 02:20:00 Test Item Value Reference Range Interpretation Comments Basophils (test code = 0.4 See_Comment [Aut omated message] The Basophils) system which ge nerated this result tra nsmitted reference range : <=1.0. The reference r hugo was not used to int erpret this result as normal/abnormal . [facility] CampusTzfyaikBMIBGXNUXJ5666-86-76 02:20:00 Test Item Value Reference Range Interpretation Comments Neutrophils # (test code = Neutrophils 7.4 1.5-8.1 #) [facility] CampusEecwildXSFNWBVCCT2785-13-38 02:20:00 Test Item Value Reference Range Interpretation Comments Lymphocytes # (test code = Lymphocytes 0.7 1.0-5.5 #) [facility] CampusAljoqzuYDHTOHYQQO9005-77-82 02:20:00 Test Item Value Reference Range Interpretation Comments Monocytes # (test code 0.4 See_Comment [Aut omated message] The = Monocytes #) system which generated this result tra nsmitted reference range : <=0.8. The reference r hugo was not used to int erpret this result as normal/abnormal . [facility] CampusK[id number] 02:20:00 Test Item Value Reference Range Interpretation Comments Microcyte (test code = 1+ *ABN*(06/12/22 Microcyte) 9:20 PM) [facility] [id number] 02:20:00 Test Item Value Reference Range Interpretation Comments HS Troponin I (test code = HS Troponin 52 I) [facility]2022-07-25 02:20:00 Test Item Value Reference Range Interpretation Comments Glucose Lvl (test code = Glucose Lvl) 103 70-99 [facility]2022-07-25 02:20:00 Test Item Value Reference Range Interpretation Comments BUN (test code = BUN) 22 7-22 [place] 480482-07-25 02:20:00 Test Item Value Reference Range Interpretation Comments Creatinine Lvl (test code = Creatinine 0.90 0.50-1.40 Lvl) [place] 480482-07-25 02:20:00 Test Item Value Reference Range Interpretation Comments Sodium Lvl (test code = Sodium Lvl) 131 135-145 [place] 480482-07-25 02:20:00 Test Item Value Reference Range Interpretation Comments Potassium Lvl (test code = Potassium 4.2 3.5-5.1 Lvl) [place] 480482-07-25 02:20:00 Test Item Value Reference Range Interpretation Comments Chloride Lvl (test code = Chloride Lvl) 97 95-109 [place] 480482-07-25 02:20:00 Test Item Value Reference Range Interpretation Comments CO2 (test code = CO2) 26 24-32 [place] 480482-07-25 02:20:00 Test Item Value Reference Range Interpretation Comments Calcium Lvl (test code = Calcium Lvl) 8.7 8.5-10.5 [place] 480482-07-25 02:20:00 Test Item Value Reference Range Interpretation Comments Total Protein (test code = Total 7.0 6.4-8.4 Protein) [place] 480482-07-25 02:20:00 Test Item Value Reference Range Interpretation Comments Albumin Lvl (test code = Albumin Lvl) 3.4 3.5-5.0 [place] 480482-07-25 02:20:00 Test Item Value Reference Range Interpretation Comments ALT (test code = ALT) 18 See_Comment [Auto mated message] The system which ge nerated this result transmit lavon reference range : <=65. The reference range was not used to interpr et this result as dionne l/abnormal. [place] 480482-07-25 02:20:00 Test Item Value Reference Range Interpretation Comments AST (test code = AST) 27 See_Comment [Auto mated message] The system which ge nerated this result transmit lavon reference range : <=37. The reference range was not used to interpr et this result as dionne l/abnormal. [address]07-25 02:20:00 Test Item Value Reference Range Interpretation Comments Alk Phos (test code = Alk Phos) 57 39-136 [place] 480482-07-25 02:20:00 Test Item Value Reference Range Interpretation Comments Bili Total (test code = Bili Total) 1.0 0.2-1.3 [place] 480482-07-25 02:20:00 Test Item Value Reference Range Interpretation Comments AGAP (test code = AGAP) 12.2 10.0-20.0 [place] 480482-07-25 02:20:00 Test Item Value Reference Range Interpretation Comments B/C Ratio (test code = B/C Ratio) 24 1 6-25 [place] 480482-07-25 02:20:00 Test Item Value Reference Range Interpretation Comments Globulin (test code = Globulin) 3.6 2.7-4.2 [place] 480482-07-25 02:20:00 Test Item Value Reference Range Interpretation Comments A/G Ratio (test code = A/G Ratio) 0.9 1 0.7-1.6 [place] 480482-07-25 02:20:00 Test Item Value Reference Range Interpretation Comments eGFR (test code = eGFR) 62 [place] 325412-07-25 02:20:00 Test Item Value Reference Range Interpretation Comments WBC (test code = WBC) 8.6 3.7-10.4 [place] 325412-07-25 02:20:00 Test Item Value Reference Range Interpretation Comments RBC (test code = RBC) 3.58 4.20-5.40 [place] 325412-07-25 02:20:00 Test Item Value Reference Range Interpretation Comments Hgb (test code = Hgb) 8.8 12.0-16.0 [place] [address]-07-25 02:20:00 Test Item Value Reference Range Interpretation Comments Hct (test code = Hct) 27.1 36.0-48.0 [place] [address]-07-25 02:20:00 Test Item Value Reference Range Interpretation Comments MCV (test code = MCV) 75.6 80.0-98.0 [place] 325412-07-25 02:20:00 Test Item Value Reference Range Interpretation Comments MCH (test code = MCH) 24.5 pg 27.0-31.0 [place] 325412-07-25 02:20:00 Test Item Value Reference Range Interpretation Comments MCHC (test code = MCHC) 32.4 32.0-36.0 [place] 325412-07-25 02:20:00 Test Item Value Reference Range Interpretation Comments RDW (test code = RDW) 21.1 11.5-14.5 [place] 325412-07-25 02:20:00 Test Item Value Reference Range Interpretation Comments Platelet (test code = Platelet) 297 133-450 [facility] CampusLmmgxskBPKJFSIBNI4578-46-21 02:20:00 Test Item Value Reference Range Interpretation Comments MPV (test code = MPV) 7.5 7.4-10.4 [place] 325412-07-25 02:20:00 Test Item Value Reference Range Interpretation Comments Segs (test code = Segs) 85.8 45.0-75.0 [place] 325412-07-25 02:20:00 Test Item Value Reference Range Interpretation Comments Lymphocytes (test code = Lymphocytes) 8.5 20.0-40.0 [place] 325412-07-25 02:20:00 Test Item Value Reference Range Interpretation Comments Monocytes (test code = Monocytes) 5.0 2.0-12.0 [place] 325412-07-25 02:20:00 Test Item Value Reference Range Interpretation Comments Eosinophils (test code = 0.3 See_Comment [A utomated message] The Eosinophils) system which ge nerated this result tra nsmitted reference range : <=4.0. The reference r hugo was not used to int erpret this result as normal/abnormal . [facility] CampusSodcdozFIXDVERJLT4288-09-91 02:20:00 Test Item Value Reference Range Interpretation Comments Basophils (test code = 0.4 See_Comment [Aut omated message] The Basophils) system which ge nerated this result tra nsmitted reference range : <=1.0. The reference r hugo was not used to int erpret this result as normal/abnormal . [place] 325412-07-25 02:20:00 Test Item Value Reference Range Interpretation Comments Neutrophils # (test code = Neutrophils 7.4 1.5-8.1 #) [facility] HospitalYaguwkxDXPDMQIOPK1295-83-58 02:20:00 Test Item Value Reference Range Interpretation Comments Lymphocytes # (test code = Lymphocytes 0.7 1.0-5.5 #) [facility]GIHSPNPEXL1719[facility] 02:20:00 Test Item Value Reference Range Interpretation Comments Monocytes # (test code 0.4 See_Comment [Aut omated message] The = Monocytes #) system which generated this result tra nsmitted reference range : <=0.8. The reference r hugo was not used to int erpret this result as normal/abnormal . [facility] HospitalNywtqqgLOHERAUEZM6581-95-39 02:20:00 Test Item Value Reference Range Interpretation Comments Microcyte (test code = 1+ *ABN*(06/12/22 Microcyte) 9:20 PM) [facility]2022-07-25 02:20:00 Test Item Value Reference Range Interpretation Comments HS Troponin I (test code = HS Troponin 52 I) [facility] [id number] 02:20:00 Test Item Value Reference Range Interpretation Comments Glucose Lvl (test code = Glucose Lvl) 103 70-99 [facility] [id number] 02:20:00 Test Item Value Reference Range Interpretation Comments BUN (test code = BUN) 22 7-22 [facility] [id number] 02:20:00 Test Item Value Reference Range Interpretation Comments Creatinine Lvl (test code = Creatinine 0.90 0.50-1.40 Lvl) [facility] [id number] 02:20:00 Test Item Value Reference Range Interpretation Comments Sodium Lvl (test code = Sodium Lvl) 131 135-145 [facility] [id number] 02:20:00 Test Item Value Reference Range Interpretation Comments Potassium Lvl (test code = Potassium 4.2 3.5-5.1 Lvl) [facility] [id number] 02:20:00 Test Item Value Reference Range Interpretation Comments Chloride Lvl (test code = Chloride Lvl) 97 95-109 [facility]2022-07-25 02:20:00 Test Item Value Reference Range Interpretation Comments CO2 (test code = CO2) 26 24-32 [facility] [id number] 02:20:00 Test Item Value Reference Range Interpretation Comments Calcium Lvl (test code = Calcium Lvl) 8.7 8.5-10.5 [place] 480482-07-25 02:20:00 Test Item Value Reference Range Interpretation Comments Total Protein (test code = Total 7.0 6.4-8.4 Protein) [place] 480482-07-25 02:20:00 Test Item Value Reference Range Interpretation Comments Albumin Lvl (test code = Albumin Lvl) 3.4 3.5-5.0 [place] 480482-07-25 02:20:00 Test Item Value Reference Range Interpretation Comments ALT (test code = ALT) 18 See_Comment [Auto mated message] The system which ge nerated this result transmit lavon reference range : <=65. The reference range was not used to interpr et this result as dionne l/abnormal. [place] 480482-07-25 02:20:00 Test Item Value Reference Range Interpretation Comments AST (test code = AST) 27 See_Comment [Auto mated message] The system which ge nerated this result transmit lavon reference range : <=37. The reference range was not used to interpr et this result as dionne l/abnormal. [facility] [id number] 02:20:00 Test Item Value Reference Range Interpretation Comments Alk Phos (test code = Alk Phos) 57 39-136 [place] 480482-07-25 02:20:00 Test Item Value Reference Range Interpretation Comments Bili Total (test code = Bili Total) 1.0 0.2-1.3 [place] 480482-07-25 02:20:00 Test Item Value Reference Range Interpretation Comments AGAP (test code = AGAP) 12.2 10.0-20.0 [facility] [id number] 02:20:00 Test Item Value Reference Range Interpretation Comments B/C Ratio (test code = B/C Ratio) 24 1 6-25 [facility] [id number] 02:20:00 Test Item Value Reference Range Interpretation Comments Globulin (test code = Globulin) 3.6 2.7-4.2 [facility] [id number] 02:20:00 Test Item Value Reference Range Interpretation Comments A/G Ratio (test code = A/G Ratio) 0.9 1 0.7-1.6 [facility]2022-07-25 02:20:00 Test Item Value Reference Range Interpretation Comments eGFR (test code = eGFR) 62 [facility] CampusPuclihtHXTGHEPYZH8397-83-74 02:20:00 Test Item Value Reference Range Interpretation Comments WBC (test code = WBC) 8.6 3.7-10.4 [facility] CampusHqkvzhuAYGDQKQASJ1134-49-32 02:20:00 Test Item Value Reference Range Interpretation Comments RBC (test code = RBC) 3.58 4.20-5.40 [place] 325412-07-25 02:20:00 Test Item Value Reference Range Interpretation Comments Hgb (test code = Hgb) 8.8 12.0-16.0 [facility] CampusIwysvkqEJFRCKIRVV4487-70-06 02:20:00 Test Item Value Reference Range Interpretation Comments Hct (test code = Hct) 27.1 36.0-48.0 [facility] CampusRtyqsuaYYRKGTPUWY4229-99-45 02:20:00 Test Item Value Reference Range Interpretation Comments MCV (test code = MCV) 75.6 80.0-98.0 [facility] CampusBnsjcyoOXEWRASJMW2190-54-15 02:20:00 Test Item Value Reference Range Interpretation Comments MCH (test code = MCH) 24.5 pg 27.0-31.0 [facility] CampusSglignfPMPPTMXLSB1431-45-52 02:20:00 Test Item Value Reference Range Interpretation Comments MCHC (test code = MCHC) 32.4 32.0-36.0 [facility] CampusRkrmmzbULAYVKEZDT6445-92-08 02:20:00 Test Item Value Reference Range Interpretation Comments RDW (test code = RDW) 21.1 11.5-14.5 [place] 325412-07-25 02:20:00 Test Item Value Reference Range Interpretation Comments Platelet (test code = Platelet) 297 133-450 [facility] [id number] 02:20:00 Test Item Value Reference Range Interpretation Comments MPV (test code = MPV) 7.5 7.4-10.4 [facility] CampusYlwslcvLQJEFBWJWM7745-75-18 02:20:00 Test Item Value Reference Range Interpretation Comments Segs (test code = Segs) 85.8 45.0-75.0 [place] 325412-07-25 02:20:00 Test Item Value Reference Range Interpretation Comments Lymphocytes (test code = Lymphocytes) 8.5 20.0-40.0 [facility] CampusZprtidyCZFLMQKHTH4655-57-34 02:20:00 Test Item Value Reference Range Interpretation Comments Monocytes (test code = Monocytes) 5.0 2.0-12.0 [facility] CampusUfixosiYYDLLNCEYD3389-81-02 02:20:00 Test Item Value Reference Range Interpretation Comments Eosinophils (test code = 0.3 See_Comment [A utomated message] The Eosinophils) system which ge nerated this result tra nsmitted reference range : <=4.0. The reference r hugo was not used to int erpret this result as normal/abnormal . [facility] CampusKibfkhgADZNUHQTJL2271-58-34 02:20:00 Test Item Value Reference Range Interpretation Comments Basophils (test code = 0.4 See_Comment [Aut omated message] The Basophils) system which ge nerated this result tra nsmitted reference range : <=1.0. The reference r hugo was not used to int erpret this result as normal/abnormal . [facility] CampusKlmvpdyRMWGCXURNZ2270-10-93 02:20:00 Test Item Value Reference Range Interpretation Comments Neutrophils # (test code = Neutrophils 7.4 1.5-8.1 #) [facility] CampusXwqcjryDOKBFMQMQU8712-22-04 02:20:00 Test Item Value Reference Range Interpretation Comments Lymphocytes # (test code = Lymphocytes 0.7 1.0-5.5 #) [facility] CampusGeyoufzGPPBSRQNYR3346-15-53 02:20:00 Test Item Value Reference Range Interpretation Comments Monocytes # (test code 0.4 See_Comment [Aut omated message] The = Monocytes #) system which generated this result tra nsmitted reference range : <=0.8. The reference r hugo was not used to int erpret this result as normal/abnormal . [facility] CampusVdcttaeKYTCNNKFHB1522-73-56 02:20:00 Test Item Value Reference Range Interpretation Comments Microcyte (test code = 1+ *ABN*(06/12/22 Microcyte) 9:20 PM) [facility] [id number] 02:20:00 Test Item Value Reference Range Interpretation Comments HS Troponin I (test code = HS Troponin 52 I) [facility] HospitalCHEM [id number] 02:20:00 Test Item Value Reference Range Interpretation Comments Glucose Lvl (test code = Glucose Lvl) 103 70-99 [place] 480482-07-25 02:20:00 Test Item Value Reference Range Interpretation Comments BUN (test code = BUN) 22 7-22 [place] 480482-07-25 02:20:00 Test Item Value Reference Range Interpretation Comments Creatinine Lvl (test code = Creatinine 0.90 0.50-1.40 Lvl) [place] 480482-07-25 02:20:00 Test Item Value Reference Range Interpretation Comments Sodium Lvl (test code = Sodium Lvl) 131 135-145 [place] 480482-07-25 02:20:00 Test Item Value Reference Range Interpretation Comments Potassium Lvl (test code = Potassium 4.2 3.5-5.1 Lvl) [place] 480482-07-25 02:20:00 Test Item Value Reference Range Interpretation Comments Chloride Lvl (test code = Chloride Lvl) 97 95-109 [place] 480482-07-25 02:20:00 Test Item Value Reference Range Interpretation Comments CO2 (test code = CO2) 26 24-32 [place] 480482-07-25 02:20:00 Test Item Value Reference Range Interpretation Comments Calcium Lvl (test code = Calcium Lvl) 8.7 8.5-10.5 [place] 480482-07-25 02:20:00 Test Item Value Reference Range Interpretation Comments Total Protein (test code = Total 7.0 6.4-8.4 Protein) [place] 480482-07-25 02:20:00 Test Item Value Reference Range Interpretation Comments Albumin Lvl (test code = Albumin Lvl) 3.4 3.5-5.0 [place] 480482-07-25 02:20:00 Test Item Value Reference Range Interpretation Comments ALT (test code = ALT) 18 See_Comment [Auto mated message] The system which ge nerated this result transmit lavon reference range : <=65. The reference range was not used to interpr et this result as dionne l/abnormal. [place] 480482-07-25 02:20:00 Test Item Value Reference Range Interpretation Comments AST (test code = AST) 27 See_Comment [Auto mated message] The system which ge nerated this result transmit lavon reference range : <=37. The reference range was not used to interpr et this result as dionne l/abnormal. [facility] [id number] 02:20:00 Test Item Value Reference Range Interpretation Comments Alk Phos (test code = Alk Phos) 57 39-136 [place] 480482-07-25 02:20:00 Test Item Value Reference Range Interpretation Comments Bili Total (test code = Bili Total) 1.0 0.2-1.3 [facility]2022-07-25 02:20:00 Test Item Value Reference Range Interpretation Comments AGAP (test code = AGAP) 12.2 10.0-20.0 [place] 480482-07-25 02:20:00 Test Item Value Reference Range Interpretation Comments B/C Ratio (test code = B/C Ratio) 24 1 6-25 [place] 480482-07-25 02:20:00 Test Item Value Reference Range Interpretation Comments Globulin (test code = Globulin) 3.6 2.7-4.2 [facility]2022-07-25 02:20:00 Test Item Value Reference Range Interpretation Comments A/G Ratio (test code = A/G Ratio) 0.9 1 0.7-1.6 [place] 480482-07-25 02:20:00 Test Item Value Reference Range Interpretation Comments eGFR (test code = eGFR) 62 [place] 325412-07-25 02:20:00 Test Item Value Reference Range Interpretation Comments WBC (test code = WBC) 8.6 3.7-10.4 [place] 325412-07-25 02:20:00 Test Item Value Reference Range Interpretation Comments RBC (test code = RBC) 3.58 4.20-5.40 [place] 325412-07-25 02:20:00 Test Item Value Reference Range Interpretation Comments Hgb (test code = Hgb) 8.8 12.0-16.0 [place] 325412-07-25 02:20:00 Test Item Value Reference Range Interpretation Comments Hct (test code = Hct) 27.1 36.0-48.0 [place] 325412-07-25 02:20:00 Test Item Value Reference Range Interpretation Comments MCV (test code = MCV) 75.6 80.0-98.0 [place] 325412-07-25 02:20:00 Test Item Value Reference Range Interpretation Comments MCH (test code = MCH) 24.5 pg 27.0-31.0 [place] 325412-07-25 02:20:00 Test Item Value Reference Range Interpretation Comments MCHC (test code = MCHC) 32.4 32.0-36.0 [place] 325412-07-25 02:20:00 Test Item Value Reference Range Interpretation Comments RDW (test code = RDW) 21.1 11.5-14.5 [place] 325412-07-25 02:20:00 Test Item Value Reference Range Interpretation Comments Platelet (test code = Platelet) 297 133-450 [facility] C[id number] 02:20:00 Test Item Value Reference Range Interpretation Comments MPV (test code = MPV) 7.5 7.4-10.4 [place] 325412-07-25 02:20:00 Test Item Value Reference Range Interpretation Comments Segs (test code = Segs) 85.8 45.0-75.0 [place] 325412-07-25 02:20:00 Test Item Value Reference Range Interpretation Comments Lymphocytes (test code = Lymphocytes) 8.5 20.0-40.0 [place] 325412-07-25 02:20:00 Test Item Value Reference Range Interpretation Comments Monocytes (test code = Monocytes) 5.0 2.0-12.0 [place] 325412-07-25 02:20:00 Test Item Value Reference Range Interpretation Comments Eosinophils (test code = 0.3 See_Comment [A utomated message] The Eosinophils) system which ge nerated this result tra nsmitted reference range : <=4.0. The reference r hugo was not used to int erpret this result as normal/abnormal . [place] 325412-07-25 02:20:00 Test Item Value Reference Range Interpretation Comments Basophils (test code = 0.4 See_Comment [Aut omated message] The Basophils) system which ge nerated this result tra nsmitted reference range : <=1.0. The reference r hugo was not used to int erpret this result as normal/abnormal . [facility] CampusSodabvyDWZCACBMQL5423-43-66 02:20:00 Test Item Value Reference Range Interpretation Comments Neutrophils # (test code = Neutrophils 7.4 1.5-8.1 #) [facility] CampusBnjquhyYXWTRDFLCT5517-99-25 02:20:00 Test Item Value Reference Range Interpretation Comments Lymphocytes # (test code = Lymphocytes 0.7 1.0-5.5 #) [facility] CampusMrcrffuFWCJDLWWZL6281-93-92 02:20:00 Test Item Value Reference Range Interpretation Comments Monocytes # (test code 0.4 See_Comment [Aut omated message] The = Monocytes #) system which generated this result tra nsmitted reference range : <=0.8. The reference r hugo was not used to int erpret this result as normal/abnormal . [facility] [id number] 02:20:00 Test Item Value Reference Range Interpretation Comments Microcyte (test code = 1+ *ABN*(06/12/22 Microcyte) 9:20 PM) [facility] [id number] 02:20:00 Test Item Value Reference Range Interpretation Comments HS Troponin I (test code = HS Troponin 52 I) [facility]2022-07-25 02:20:00 Test Item Value Reference Range Interpretation Comments Glucose Lvl (test code = Glucose Lvl) 103 70-99 [facility]2022-07-25 02:20:00 Test Item Value Reference Range Interpretation Comments BUN (test code = BUN) 22 7-22 [facility]2022-07-25 02:20:00 Test Item Value Reference Range Interpretation Comments Creatinine Lvl (test code = Creatinine 0.90 0.50-1.40 Lvl) [facility]2022-07-25 02:20:00 Test Item Value Reference Range Interpretation Comments Sodium Lvl (test code = Sodium Lvl) 131 135-145 [facility]2022-07-25 02:20:00 Test Item Value Reference Range Interpretation Comments Potassium Lvl (test code = Potassium 4.2 3.5-5.1 Lvl) [facility]2022-07-25 02:20:00 Test Item Value Reference Range Interpretation Comments Chloride Lvl (test code = Chloride Lvl) 97 95-109 [place] 480482-07-25 02:20:00 Test Item Value Reference Range Interpretation Comments CO2 (test code = CO2) 26 24-32 [place] 480482-07-25 02:20:00 Test Item Value Reference Range Interpretation Comments Calcium Lvl (test code = Calcium Lvl) 8.7 8.5-10.5 [place] 480482-07-25 02:20:00 Test Item Value Reference Range Interpretation Comments Total Protein (test code = Total 7.0 6.4-8.4 Protein) [facility]2022-07-25 02:20:00 Test Item Value Reference Range Interpretation Comments Albumin Lvl (test code = Albumin Lvl) 3.4 3.5-5.0 [place] 480482-07-25 02:20:00 Test Item Value Reference Range Interpretation Comments ALT (test code = ALT) 18 See_Comment [Auto mated message] The system which ge nerated this result transmit lavon reference range : <=65. The reference range was not used to interpr et this result as dionne l/abnormal. [facility]2022-07-25 02:20:00 Test Item Value Reference Range Interpretation Comments AST (test code = AST) 27 See_Comment [Auto mated message] The system which ge nerated this result transmit lavon reference range : <=37. The reference range was not used to interpr et this result as dionne l/abnormal. [place] 480482-07-25 02:20:00 Test Item Value Reference Range Interpretation Comments Alk Phos (test code = Alk Phos) 57 39-136 [place] 480482-07-25 02:20:00 Test Item Value Reference Range Interpretation Comments Bili Total (test code = Bili Total) 1.0 0.2-1.3 [place] 480482-07-25 02:20:00 Test Item Value Reference Range Interpretation Comments AGAP (test code = AGAP) 12.2 10.0-20.0 [facility] [id number] 02:20:00 Test Item Value Reference Range Interpretation Comments B/C Ratio (test code = B/C Ratio) 24 1 6-25 [facility] [id number] 02:20:00 Test Item Value Reference Range Interpretation Comments Globulin (test code = Globulin) 3.6 2.7-4.2 [facility] [id number] 02:20:00 Test Item Value Reference Range Interpretation Comments A/G Ratio (test code = A/G Ratio) 0.9 1 0.7-1.6 [facility] [id number] 02:20:00 Test Item Value Reference Range Interpretation Comments eGFR (test code = eGFR) 62 [facility]XxjvdpqVGJNRFRFXW7076-31-52 02:20:00 Test Item Value Reference Range Interpretation Comments WBC (test code = WBC) 8.6 3.7-10.4 [facility] CampusCzlrrmfJCEHHQKZNP6646-05-43 02:20:00 Test Item Value Reference Range Interpretation Comments RBC (test code = RBC) 3.58 4.20-5.40 [facility] CampusKbqcisdTIYDXOXJCC8109-57-19 02:20:00 Test Item Value Reference Range Interpretation Comments Hgb (test code = Hgb) 8.8 12.0-16.0 [facility] CampusUisaxumKGWWMTVSOX5770-73-81 02:20:00 Test Item Value Reference Range Interpretation Comments Hct (test code = Hct) 27.1 36.0-48.0 [facility] CampusJtrvlqjESPRJSSMNC1063-18-28 02:20:00 Test Item Value Reference Range Interpretation Comments MCV (test code = MCV) 75.6 80.0-98.0 [facility] CampusBmlvvloDDHHWJWSWI7589-18-23 02:20:00 Test Item Value Reference Range Interpretation Comments MCH (test code = MCH) 24.5 pg 27.0-31.0 [facility] CampusWtazmovMPAKXKDZDM7380-21-91 02:20:00 Test Item Value Reference Range Interpretation Comments MCHC (test code = MCHC) 32.4 32.0-36.0 [facility] CampusTcfuwkxSRAQGECEYR3018-48-48 02:20:00 Test Item Value Reference Range Interpretation Comments RDW (test code = RDW) 21.1 11.5-14.5 [facility] CampusAeytaymGVCZZICEEL9604-39-85 02:20:00 Test Item Value Reference Range Interpretation Comments Platelet (test code = Platelet) 297 133-450 [facility] CampusMgbhjzvUPEPVYTTJW7967-64-56 02:20:00 Test Item Value Reference Range Interpretation Comments MPV (test code = MPV) 7.5 7.4-10.4 [place] 325412-07-25 02:20:00 Test Item Value Reference Range Interpretation Comments Segs (test code = Segs) 85.8 45.0-75.0 [facility] CampusMgqanmnCVKCKYCMDE1604-42-11 02:20:00 Test Item Value Reference Range Interpretation Comments Lymphocytes (test code = Lymphocytes) 8.5 20.0-40.0 [facility] CampusIjcrdduQDMMMQKOHM3148-72-02 02:20:00 Test Item Value Reference Range Interpretation Comments Monocytes (test code = Monocytes) 5.0 2.0-12.0 [facility] CampusYhhvtzmLMQQCUGUPC8015-41-74 02:20:00 Test Item Value Reference Range Interpretation Comments Eosinophils (test code = 0.3 See_Comment [A utomated message] The Eosinophils) system which ge nerated this result tra nsmitted reference range : <=4.0. The reference r hugo was not used to int erpret this result as normal/abnormal . [facility] CampusJjjgsicGUEFWZQSTT8700-14-45 02:20:00 Test Item Value Reference Range Interpretation Comments Basophils (test code = 0.4 See_Comment [Aut omated message] The Basophils) system which ge nerated this result tra nsmitted reference range : <=1.0. The reference r hugo was not used to int erpret this result as normal/abnormal . [facility] CampusKgxhuruVSHTZUTILI3756-51-22 02:20:00 Test Item Value Reference Range Interpretation Comments Neutrophils # (test code = Neutrophils 7.4 1.5-8.1 #) [facility] CampusWbkqzjbECZODZEWBB7861-78-12 02:20:00 Test Item Value Reference Range Interpretation Comments Lymphocytes # (test code = Lymphocytes 0.7 1.0-5.5 #) [facility] CampusFhjulxtKMEEACFVLH8112-90-02 02:20:00 Test Item Value Reference Range Interpretation Comments Monocytes # (test code 0.4 See_Comment [Aut omated message] The = Monocytes #) system which generated this result tra nsmitted reference range : <=0.8. The reference r hugo was not used to int erpret this result as normal/abnormal . [facility] CampusYyzecstQSIUOBOYLF0706-80-48 02:20:00 Test Item Value Reference Range Interpretation Comments Microcyte (test code = 1+ *ABN*(06/12/22 Microcyte) 9:20 PM) [facility]2022-07-25 02:20:00 Test Item Value Reference Range Interpretation Comments HS Troponin I (test code = HS Troponin 52 I) [facility] [id number] 02:20:00 Test Item Value Reference Range Interpretation Comments Glucose Lvl (test code = Glucose Lvl) 103 70-99 [facility] [id number] 02:20:00 Test Item Value Reference Range Interpretation Comments BUN (test code = BUN) 22 7-22 [facility]2022-07-25 02:20:00 Test Item Value Reference Range Interpretation Comments Creatinine Lvl (test code = Creatinine 0.90 0.50-1.40 Lvl) [facility] [id number] 02:20:00 Test Item Value Reference Range Interpretation Comments Sodium Lvl (test code = Sodium Lvl) 131 135-145 [facility]2022-07-25 02:20:00 Test Item Value Reference Range Interpretation Comments Potassium Lvl (test code = Potassium 4.2 3.5-5.1 Lvl) [facility]2022-07-25 02:20:00 Test Item Value Reference Range Interpretation Comments Chloride Lvl (test code = Chloride Lvl) 97 95-109 [facility]2022-07-25 02:20:00 Test Item Value Reference Range Interpretation Comments CO2 (test code = CO2) 26 24-32 [facility]2022-07-25 02:20:00 Test Item Value Reference Range Interpretation Comments Calcium Lvl (test code = Calcium Lvl) 8.7 8.5-10.5 [facility]2022-07-25 02:20:00 Test Item Value Reference Range Interpretation Comments Total Protein (test code = Total 7.0 6.4-8.4 Protein) [facility]2022-07-25 02:20:00 Test Item Value Reference Range Interpretation Comments Albumin Lvl (test code = Albumin Lvl) 3.4 3.5-5.0 [facility]2022-07-25 02:20:00 Test Item Value Reference Range Interpretation Comments ALT (test code = ALT) 18 See_Comment [Auto mated message] The system which ge nerated this result transmit lavon reference range : <=65. The reference range was not used to interpr et this result as dionne l/abnormal. [place] 480482-07-25 02:20:00 Test Item Value Reference Range Interpretation Comments AST (test code = AST) 27 See_Comment [Auto mated message] The system which ge nerated this result transmit lavon reference range : <=37. The reference range was not used to interpr et this result as dionne l/abnormal. [place] 480482-07-25 02:20:00 Test Item Value Reference Range Interpretation Comments Alk Phos (test code = Alk Phos) 57 39-136 [place] 480482-07-25 02:20:00 Test Item Value Reference Range Interpretation Comments Bili Total (test code = Bili Total) 1.0 0.2-1.3 [place] 480482-07-25 02:20:00 Test Item Value Reference Range Interpretation Comments AGAP (test code = AGAP) 12.2 10.0-20.0 [place] 480482-07-25 02:20:00 Test Item Value Reference Range Interpretation Comments B/C Ratio (test code = B/C Ratio) 24 1 6-25 [place] 480482-07-25 02:20:00 Test Item Value Reference Range Interpretation Comments Globulin (test code = Globulin) 3.6 2.7-4.2 [place] 480482-07-25 02:20:00 Test Item Value Reference Range Interpretation Comments A/G Ratio (test code = A/G Ratio) 0.9 1 0.7-1.6 [place] 480482-07-25 02:20:00 Test Item Value Reference Range Interpretation Comments eGFR (test code = eGFR) 62 [place] 325412-07-25 02:20:00 Test Item Value Reference Range Interpretation Comments WBC (test code = WBC) 8.6 3.7-10.4 [place] 325412-07-25 02:20:00 Test Item Value Reference Range Interpretation Comments RBC (test code = RBC) 3.58 4.20-5.40 [place] 325412-07-25 02:20:00 Test Item Value Reference Range Interpretation Comments Hgb (test code = Hgb) 8.8 12.0-16.0 [place] 325412-07-25 02:20:00 Test Item Value Reference Range Interpretation Comments Hct (test code = Hct) 27.1 36.0-48.0 [place] 325412-07-25 02:20:00 Test Item Value Reference Range Interpretation Comments MCV (test code = MCV) 75.6 80.0-98.0 [place] 325412-07-25 02:20:00 Test Item Value Reference Range Interpretation Comments MCH (test code = MCH) 24.5 pg 27.0-31.0 [facility] CampusCxpsxmwLDWULVDAFU5189-07-87 02:20:00 Test Item Value Reference Range Interpretation Comments MCHC (test code = MCHC) 32.4 32.0-36.0 [facility] CampusGilsbpgLPMYLWRCGF4914-58-67 02:20:00 Test Item Value Reference Range Interpretation Comments RDW (test code = RDW) 21.1 11.5-14.5 [place] 325412-07-25 02:20:00 Test Item Value Reference Range Interpretation Comments Platelet (test code = Platelet) 297 133-450 [facility] CampusCnnkppaJJXEDMEUFO8985-19-87 02:20:00 Test Item Value Reference Range Interpretation Comments MPV (test code = MPV) 7.5 7.4-10.4 [facility] CampusAslqxqbUOVSLVLWCJ9854-40-99 02:20:00 Test Item Value Reference Range Interpretation Comments Segs (test code = Segs) 85.8 45.0-75.0 [facility] CampusYmdiohuADJAMXZEMG7873-33-93 02:20:00 Test Item Value Reference Range Interpretation Comments Lymphocytes (test code = Lymphocytes) 8.5 20.0-40.0 [place] 325412-07-25 02:20:00 Test Item Value Reference Range Interpretation Comments Monocytes (test code = Monocytes) 5.0 2.0-12.0 [place] 325412-07-25 02:20:00 Test Item Value Reference Range Interpretation Comments Eosinophils (test code = 0.3 See_Comment [A utomated message] The Eosinophils) system which ge nerated this result tra nsmitted reference range : <=4.0. The reference r hugo was not used to int erpret this result as normal/abnormal . [facility] CampusXmmmblzDQUVVVTHDO5913-60-28 02:20:00 Test Item Value Reference Range Interpretation Comments Basophils (test code = 0.4 See_Comment [Aut omated message] The Basophils) system which ge nerated this result tra nsmitted reference range : <=1.0. The reference r hugo was not used to int erpret this result as normal/abnormal . [facility] CampusC[id number] 02:20:00 Test Item Value Reference Range Interpretation Comments Neutrophils # (test code = Neutrophils 7.4 1.5-8.1 #) [facility]AZHY[facility]WHDL7870[facility]77-[facility] 02:20:00 Test Item Value Reference Range Interpretation Comments Lymphocytes # (test code = Lymphocytes 0.7 1.0-5.5 #) [facility] CampusWxysgfqXNNFTMIHYE0731-73-58 02:20:00 Test Item Value Reference Range Interpretation Comments Monocytes # (test code 0.4 See_Comment [Aut omated message] The = Monocytes #) system which generated this result tra nsmitted reference range : <=0.8. The reference r hugo was not used to int erpret this result as normal/abnormal . [facility] CampusOmxafoyMXOTOOPGID2137-24-31 02:20:00 Test Item Value Reference Range Interpretation Comments Microcyte (test code = 1+ *ABN*(06/12/22 Microcyte) 9:20 PM) [facility] [id number] 02:20:00 Test Item Value Reference Range Interpretation Comments HS Troponin I (test code = HS Troponin 52 I) [facility] [id number] 02:20:00 Test Item Value Reference Range Interpretation Comments Glucose Lvl (test code = Glucose Lvl) 103 70-99 [facility] [id number] 02:20:00 Test Item Value Reference Range Interpretation Comments BUN (test code = BUN) 22 7-22 [facility] [id number] 02:20:00 Test Item Value Reference Range Interpretation Comments Creatinine Lvl (test code = Creatinine 0.90 0.50-1.40 Lvl) [facility] [id number] 02:20:00 Test Item Value Reference Range Interpretation Comments Sodium Lvl (test code = Sodium Lvl) 131 135-145 [facility] [id number] 02:20:00 Test Item Value Reference Range Interpretation Comments Potassium Lvl (test code = Potassium 4.2 3.5-5.1 Lvl) [facility]annDA[facility] [id number] 02:20:00 Test Item Value Reference Range Interpretation Comments Chloride Lvl (test code = Chloride Lvl) 97 95-109 [facility] CenterIRIS.TVDAVID [place] [id number] 02:20:00 Test Item Value Reference Range Interpretation Comments CO2 (test code = CO2) 26 24-32 [place] 480482-07-25 02:20:00 Test Item Value Reference Range Interpretation Comments Calcium Lvl (test code = Calcium Lvl) 8.7 8.5-10.5 [facility]IRIS.TVDAVID [place] [address]AVBJT0872-09-26 02:20:00 Test Item Value Reference Range Interpretation Comments Total Protein (test code = Total 7.0 6.4-8.4 Protein) [place] 480482-07-25 02:20:00 Test Item Value Reference Range Interpretation Comments Albumin Lvl (test code = Albumin Lvl) 3.4 3.5-5.0 [facility] [id number] 02:20:00 Test Item Value Reference Range Interpretation Comments ALT (test code = ALT) 18 See_Comment [Auto mated message] The system which ge nerated this result transmit lavon reference range : <=65. The reference range was not used to interpr et this result as dionne l/abnormal. [facility] [id number] 02:20:00 Test Item Value Reference Range Interpretation Comments AST (test code = AST) 27 See_Comment [Auto mated message] The system which ge nerated this result transmit lavon reference range : <=37. The reference range was not used to interpr et this result as dionne l/abnormal. [facility] [id number] 02:20:00 Test Item Value Reference Range Interpretation Comments Alk Phos (test code = Alk Phos) 57 39-136 [facility] [id number] 02:20:00 Test Item Value Reference Range Interpretation Comments Bili Total (test code = Bili Total) 1.0 0.2-1.3 [place] 480482-07-25 02:20:00 Test Item Value Reference Range Interpretation Comments AGAP (test code = AGAP) 12.2 10.0-20.0 [facility] [id number] 02:20:00 Test Item Value Reference Range Interpretation Comments B/C Ratio (test code = B/C Ratio) 24 1 6-25 [facility] [id number] 02:20:00 Test Item Value Reference Range Interpretation Comments Globulin (test code = Globulin) 3.6 2.7-4.2 [facility] [id number] 02:20:00 Test Item Value Reference Range Interpretation Comments A/G Ratio (test code = A/G Ratio) 0.9 1 0.7-1.6 [facility]2022-07-25 02:20:00 Test Item Value Reference Range Interpretation Comments eGFR (test code = eGFR) 62 [facility] [id number] 02:20:00 Test Item Value Reference Range Interpretation Comments WBC (test code = WBC) 8.6 3.7-10.4 [facility] CampusBqcywvcCLXQFNEOTI8094-51-01 02:20:00 Test Item Value Reference Range Interpretation Comments RBC (test code = RBC) 3.58 4.20-5.40 [facility] CampusMhexeydCZIWEUZCHE2606-42-04 02:20:00 Test Item Value Reference Range Interpretation Comments Hgb (test code = Hgb) 8.8 12.0-16.0 [facility] CampusMjuthtrLQCBTMZKTO8435-36-31 02:20:00 Test Item Value Reference Range Interpretation Comments Hct (test code = Hct) 27.1 36.0-48.0 [facility] CampusWquumuvZRZTCGWKAA0394-34-52 02:20:00 Test Item Value Reference Range Interpretation Comments MCV (test code = MCV) 75.6 80.0-98.0 [facility] CampusXggeaesNAWWPJAGJR1165-08-56 02:20:00 Test Item Value Reference Range Interpretation Comments MCH (test code = MCH) 24.5 pg 27.0-31.0 [facility] CampusUlpjdrvGJIMHOWSPZ7721-41-67 02:20:00 Test Item Value Reference Range Interpretation Comments MCHC (test code = MCHC) 32.4 32.0-36.0 [facility] CampusJrxryxcPATTPQAAOH3654-85-43 02:20:00 Test Item Value Reference Range Interpretation Comments RDW (test code = RDW) 21.1 11.5-14.5 [facility] CampusQiyrvowJUMVFDKMLV9030-58-67 02:20:00 Test Item Value Reference Range Interpretation Comments Platelet (test code = Platelet) 297 133-450 [place] 325412-07-25 02:20:00 Test Item Value Reference Range Interpretation Comments MPV (test code = MPV) 7.5 7.4-10.4 [place] 325412-07-25 02:20:00 Test Item Value Reference Range Interpretation Comments Segs (test code = Segs) 85.8 45.0-75.0 [place] 325412-07-25 02:20:00 Test Item Value Reference Range Interpretation Comments Lymphocytes (test code = Lymphocytes) 8.5 20.0-40.0 [place] [address]-07-25 02:20:00 Test Item Value Reference Range Interpretation Comments Monocytes (test code = Monocytes) 5.0 2.0-12.0 [place] [address]-07-25 02:20:00 Test Item Value Reference Range Interpretation Comments Eosinophils (test code = 0.3 See_Comment [A utomated message] The Eosinophils) system which ge nerated this result tra nsmitted reference range : <=4.0. The reference r hugo was not used to int erpret this result as normal/abnormal . [place] [address]-07-25 02:20:00 Test Item Value Reference Range Interpretation Comments Basophils (test code = 0.4 See_Comment [Aut omated message] The Basophils) system which ge nerated this result tra nsmitted reference range : <=1.0. The reference r hugo was not used to int erpret this result as normal/abnormal . [place] 325412-07-25 02:20:00 Test Item Value Reference Range Interpretation Comments Neutrophils # (test code = Neutrophils 7.4 1.5-8.1 #) [place] 325412-07-25 02:20:00 Test Item Value Reference Range Interpretation Comments Lymphocytes # (test code = Lymphocytes 0.7 1.0-5.5 #) [place] [address]-07-25 02:20:00 Test Item Value Reference Range Interpretation Comments Monocytes # (test code 0.4 See_Comment [Aut omated message] The = Monocytes #) system which generated this result tra nsmitted reference range : <=0.8. The reference r hugo was not used to int erpret this result as normal/abnormal . [place] [address]-07-25 02:20:00 Test Item Value Reference Range Interpretation Comments Microcyte (test code = 1+ *ABN*(06/12/22 Microcyte) 9:20 PM) [facility] [id number] 02:20:00 Test Item Value Reference Range Interpretation Comments HS Troponin I (test code = HS Troponin 52 I) [facility] [id number] 02:20:00 Test Item Value Reference Range Interpretation Comments Glucose Lvl (test code = Glucose Lvl) 103 70-99 [facility]2022-07-25 02:20:00 Test Item Value Reference Range Interpretation Comments BUN (test code = BUN) 22 - [facility]2022-07-25 02:20:00 Test Item Value Reference Range Interpretation Comments Creatinine Lvl (test code = Creatinine 0.90 0.50-1.40 Lvl) [facility]2022-07-25 02:20:00 Test Item Value Reference Range Interpretation Comments Sodium Lvl (test code = Sodium Lvl) 131 135-145 [facility]2022-07-25 02:20:00 Test Item Value Reference Range Interpretation Comments Potassium Lvl (test code = Potassium 4.2 3.5-5.1 Lvl) [facility]2022-07-25 02:20:00 Test Item Value Reference Range Interpretation Comments Chloride Lvl (test code = Chloride Lvl) 97 95-109 [facility]2022-07-25 02:20:00 Test Item Value Reference Range Interpretation Comments CO2 (test code = CO2) 26 24-32 [facility]2022-07-25 02:20:00 Test Item Value Reference Range Interpretation Comments Calcium Lvl (test code = Calcium Lvl) 8.7 8.5-10.5 [facility]2022-07-25 02:20:00 Test Item Value Reference Range Interpretation Comments Total Protein (test code = Total 7.0 6.4-8.4 Protein) [facility]2022-07-25 02:20:00 Test Item Value Reference Range Interpretation Comments Albumin Lvl (test code = Albumin Lvl) 3.4 3.5-5.0 [facility]2022-07-25 02:20:00 Test Item Value Reference Range Interpretation Comments ALT (test code = ALT) 18 See_Comment [Auto mated message] The system which ge nerated this result transmit lavon reference range : <=65. The reference range was not used to interpr et this result as dionne l/abnormal. [facility] [id number] 02:20:00 Test Item Value Reference Range Interpretation Comments AST (test code = AST) 27 See_Comment [Auto mated message] The system which ge nerated this result transmit lavon reference range : <=37. The reference range was not used to interpr et this result as dionne l/abnormal. [facility] [id number] 02:20:00 Test Item Value Reference Range Interpretation Comments Alk Phos (test code = Alk Phos) 57 39-136 [facility] [id number] 02:20:00 Test Item Value Reference Range Interpretation Comments Bili Total (test code = Bili Total) 1.0 0.2-1.3 [facility] [id number] 02:20:00 Test Item Value Reference Range Interpretation Comments AGAP (test code = AGAP) 12.2 10.0-20.0 [facility] [id number] 02:20:00 Test Item Value Reference Range Interpretation Comments B/C Ratio (test code = B/C Ratio) 24 1 6-25 [facility] [id number] 02:20:00 Test Item Value Reference Range Interpretation Comments Globulin (test code = Globulin) 3.6 2.7-4.2 [facility] [id number] 02:20:00 Test Item Value Reference Range Interpretation Comments A/G Ratio (test code = A/G Ratio) 0.9 1 0.7-1.6 [facility] [id number] 02:20:00 Test Item Value Reference Range Interpretation Comments eGFR (test code = eGFR) 62 [facility]RxairnaSGRVQDMDJM8109-17-62 02:20:00 Test Item Value Reference Range Interpretation Comments WBC (test code = WBC) 8.6 3.7-10.4 [facility] HospitalDgwaxjnGPMMBWUSPP7081-23-87 02:20:00 Test Item Value Reference Range Interpretation Comments RBC (test code = RBC) 3.58 4.20-5.40 [facility] HospitalDouvsvxLTKXWTIFUH6099-92-44 02:20:00 Test Item Value Reference Range Interpretation Comments Hgb (test code = Hgb) 8.8 12.0-16.0 [place] 325412-07-25 02:20:00 Test Item Value Reference Range Interpretation Comments Hct (test code = Hct) 27.1 36.0-48.0 [place] 325412-07-25 02:20:00 Test Item Value Reference Range Interpretation Comments MCV (test code = MCV) 75.6 80.0-98.0 [facility] CampusAeseutoRWSNMAINDV5520-38-18 02:20:00 Test Item Value Reference Range Interpretation Comments MCH (test code = MCH) 24.5 pg 27.0-31.0 [facility] CampusKlfilukWDSWYXEDOO0027-75-34 02:20:00 Test Item Value Reference Range Interpretation Comments MCHC (test code = MCHC) 32.4 32.0-36.0 [facility] CampusPucrweqEFWXHRKBLJ0258-79-04 02:20:00 Test Item Value Reference Range Interpretation Comments RDW (test code = RDW) 21.1 11.5-14.5 [facility] CampusZlpezzlALBYAYPIFJ4583-41-46 02:20:00 Test Item Value Reference Range Interpretation Comments Platelet (test code = Platelet) 297 133-450 [facility] CampusRmukeunTKRFIGEDGT5201-30-34 02:20:00 Test Item Value Reference Range Interpretation Comments MPV (test code = MPV) 7.5 7.4-10.4 [place] 325412-07-25 02:20:00 Test Item Value Reference Range Interpretation Comments Segs (test code = Segs) 85.8 45.0-75.0 [facility] CampusPijuvccLEFKVRNKFM4805-62-85 02:20:00 Test Item Value Reference Range Interpretation Comments Lymphocytes (test code = Lymphocytes) 8.5 20.0-40.0 [place] 325412-07-25 02:20:00 Test Item Value Reference Range Interpretation Comments Monocytes (test code = Monocytes) 5.0 2.0-12.0 [facility] CampusHiglbsyDNZCKSEDFO5624-79-06 02:20:00 Test Item Value Reference Range Interpretation Comments Eosinophils (test code = 0.3 See_Comment [A utomated message] The Eosinophils) system which ge nerated this result tra nsmitted reference range : <=4.0. The reference r hugo was not used to int erpret this result as normal/abnormal . [facility] CenterZdszjcnALRVCCIFXD5129-29-22 02:20:00 Test Item Value Reference Range Interpretation Comments Basophils (test code = 0.4 See_Comment [Aut omated message] The Basophils) system which ge nerated this result tra nsmitted reference range : <=1.0. The reference r hugo was not used to int erpret this result as normal/abnormal . [facility] HospitalNfdhcdoXOODHOETCD2865-61-14 02:20:00 Test Item Value Reference Range Interpretation Comments Neutrophils # (test code = Neutrophils 7.4 1.5-8.1 #) [facility] HospitalBtrxerfTCKFCXNMAV3549-07-39 02:20:00 Test Item Value Reference Range Interpretation Comments Lymphocytes # (test code = Lymphocytes 0.7 1.0-5.5 #) [facility]EhybeuqTTEMBDEGAF5623-84-80 02:20:00 Test Item Value Reference Range Interpretation Comments Monocytes # (test code 0.4 See_Comment [Aut omated message] The = Monocytes #) system which generated this result tra nsmitted reference range : <=0.8. The reference r hugo was not used to int erpret this result as normal/abnormal . [facility] HospitalHjmhxrmBRMHWTRZFE4788-59-91 02:20:00 Test Item Value Reference Range Interpretation Comments Microcyte (test code = 1+ *ABN*(06/12/22 Microcyte) 9:20 PM) [facility] CenterIRIS.TVCARDIAC [id number] 02:20:00 Test Item Value Reference Range Interpretation Comments HS Troponin I (test code = HS Troponin 52 I) [facility] [employer] [id number] 02:20:00 Test Item Value Reference Range Interpretation Comments Glucose Lvl (test code = Glucose Lvl) 103 70-99 [facility] [id number] 02:20:00 Test Item Value Reference Range Interpretation Comments BUN (test code = BUN) 22 - [facility] [id number] 02:20:00 Test Item Value Reference Range Interpretation Comments Creatinine Lvl (test code = Creatinine 0.90 0.50-1.40 Lvl) [facility] [id number] 02:20:00 Test Item Value Reference Range Interpretation Comments Sodium Lvl (test code = Sodium Lvl) 131 135-145 [place] 480482-07-25 02:20:00 Test Item Value Reference Range Interpretation Comments Potassium Lvl (test code = Potassium 4.2 3.5-5.1 Lvl) [place] 480482-07-25 02:20:00 Test Item Value Reference Range Interpretation Comments Chloride Lvl (test code = Chloride Lvl) 97 95-109 [place] [address]-07-25 02:20:00 Test Item Value Reference Range Interpretation Comments CO2 (test code = CO2) 26 24-32 [place] 480482-07-25 02:20:00 Test Item Value Reference Range Interpretation Comments Calcium Lvl (test code = Calcium Lvl) 8.7 8.5-10.5 [place] 480482-07-25 02:20:00 Test Item Value Reference Range Interpretation Comments Total Protein (test code = Total 7.0 6.4-8.4 Protein) [place] 480482-07-25 02:20:00 Test Item Value Reference Range Interpretation Comments Albumin Lvl (test code = Albumin Lvl) 3.4 3.5-5.0 [place] 480482-07-25 02:20:00 Test Item Value Reference Range Interpretation Comments ALT (test code = ALT) 18 See_Comment [Auto mated message] The system which ge nerated this result transmit lavon reference range : <=65. The reference range was not used to interpr et this result as dionne l/abnormal. [place] 480482-07-25 02:20:00 Test Item Value Reference Range Interpretation Comments AST (test code = AST) 27 See_Comment [Auto mated message] The system which ge nerated this result transmit lavon reference range : <=37. The reference range was not used to interpr et this result as dionne l/abnormal. [facility] [id number] 02:20:00 Test Item Value Reference Range Interpretation Comments Alk Phos (test code = Alk Phos) 57 39-136 [place] 480482-07-25 02:20:00 Test Item Value Reference Range Interpretation Comments Bili Total (test code = Bili Total) 1.0 0.2-1.3 [place] 480482-07-25 02:20:00 Test Item Value Reference Range Interpretation Comments AGAP (test code = AGAP) 12.2 10.0-20.0 [facility]2022-07-25 02:20:00 Test Item Value Reference Range Interpretation Comments B/C Ratio (test code = B/C Ratio) 24 1 6-25 [place] 480482-07-25 02:20:00 Test Item Value Reference Range Interpretation Comments Globulin (test code = Globulin) 3.6 2.7-4.2 [facility]2022-07-25 02:20:00 Test Item Value Reference Range Interpretation Comments A/G Ratio (test code = A/G Ratio) 0.9 1 0.7-1.6 [place] 480482-07-25 02:20:00 Test Item Value Reference Range Interpretation Comments eGFR (test code = eGFR) 62 [facility] CampusLfviwtxGTHLFKAUDE9587-14-50 02:20:00 Test Item Value Reference Range Interpretation Comments WBC (test code = WBC) 8.6 3.7-10.4 [facility] CampusCmlcjbgVCXZBXXHYA1848-63-98 02:20:00 Test Item Value Reference Range Interpretation Comments RBC (test code = RBC) 3.58 4.20-5.40 [facility] CampusRwmftruOJRMZFVDOK9907-82-27 02:20:00 Test Item Value Reference Range Interpretation Comments Hgb (test code = Hgb) 8.8 12.0-16.0 [place] 325412-07-25 02:20:00 Test Item Value Reference Range Interpretation Comments Hct (test code = Hct) 27.1 36.0-48.0 [place] 325412-07-25 02:20:00 Test Item Value Reference Range Interpretation Comments MCV (test code = MCV) 75.6 80.0-98.0 [place] 325412-07-25 02:20:00 Test Item Value Reference Range Interpretation Comments MCH (test code = MCH) 24.5 pg 27.0-31.0 [place] 325412-07-25 02:20:00 Test Item Value Reference Range Interpretation Comments MCHC (test code = MCHC) 32.4 32.0-36.0 [place] 325412-07-25 02:20:00 Test Item Value Reference Range Interpretation Comments RDW (test code = RDW) 21.1 11.5-14.5 [place] 325412-07-25 02:20:00 Test Item Value Reference Range Interpretation Comments Platelet (test code = Platelet) 297 133-450 [place] 325412-07-25 02:20:00 Test Item Value Reference Range Interpretation Comments MPV (test code = MPV) 7.5 7.4-10.4 [place] 325412-07-25 02:20:00 Test Item Value Reference Range Interpretation Comments Segs (test code = Segs) 85.8 45.0-75.0 [place] 325412-07-25 02:20:00 Test Item Value Reference Range Interpretation Comments Lymphocytes (test code = Lymphocytes) 8.5 20.0-40.0 [place] 325412-07-25 02:20:00 Test Item Value Reference Range Interpretation Comments Monocytes (test code = Monocytes) 5.0 2.0-12.0 [place] 325412-07-25 02:20:00 Test Item Value Reference Range Interpretation Comments Eosinophils (test code = 0.3 See_Comment [A utomated message] The Eosinophils) system which ge nerated this result tra nsmitted reference range : <=4.0. The reference r hugo was not used to int erpret this result as normal/abnormal . [facility] [id number] 02:20:00 Test Item Value Reference Range Interpretation Comments Basophils (test code = 0.4 See_Comment [Aut omated message] The Basophils) system which ge nerated this result tra nsmitted reference range : <=1.0. The reference r hugo was not used to int erpret this result as normal/abnormal . [facility] CampusDckyxelHGXYJYQKWE0899-84-66 02:20:00 Test Item Value Reference Range Interpretation Comments Neutrophils # (test code = Neutrophils 7.4 1.5-8.1 #) [place] 325412-07-25 02:20:00 Test Item Value Reference Range Interpretation Comments Lymphocytes # (test code = Lymphocytes 0.7 1.0-5.5 #) [place] 325412-07-25 02:20:00 Test Item Value Reference Range Interpretation Comments Monocytes # (test code 0.4 See_Comment [Aut omated message] The = Monocytes #) system which generated this result tra nsmitted reference range : <=0.8. The reference r hugo was not used to int erpret this result as normal/abnormal . [facility] HospitalLuzadukMDOHUKKAZQ9927-18-93 02:20:00 Test Item Value Reference Range Interpretation Comments Microcyte (test code = 1+ *ABN*(06/12/22 Microcyte) 9:20 PM) [facility] HospitalCARDIAC [id number] 02:20:00 Test Item Value Reference Range Interpretation Comments HS Troponin I (test code = HS Troponin 52 I) [facility] [id number] 02:20:00 Test Item Value Reference Range Interpretation Comments Glucose Lvl (test code = Glucose Lvl) 103 70-99 [facility]2022-07-25 02:20:00 Test Item Value Reference Range Interpretation Comments BUN (test code = BUN) 22 - [facility]2022-07-25 02:20:00 Test Item Value Reference Range Interpretation Comments Creatinine Lvl (test code = Creatinine 0.90 0.50-1.40 Lvl) [facility]2022-07-25 02:20:00 Test Item Value Reference Range Interpretation Comments Sodium Lvl (test code = Sodium Lvl) 131 135-145 [facility]2022-07-25 02:20:00 Test Item Value Reference Range Interpretation Comments Potassium Lvl (test code = Potassium 4.2 3.5-5.1 Lvl) [facility]2022-07-25 02:20:00 Test Item Value Reference Range Interpretation Comments Chloride Lvl (test code = Chloride Lvl) 97 95-109 [facility]2022-07-25 02:20:00 Test Item Value Reference Range Interpretation Comments CO2 (test code = CO2) 26 24-32 [facility]2022-07-25 02:20:00 Test Item Value Reference Range Interpretation Comments Calcium Lvl (test code = Calcium Lvl) 8.7 8.5-10.5 [facility]2022-07-25 02:20:00 Test Item Value Reference Range Interpretation Comments Total Protein (test code = Total 7.0 6.4-8.4 Protein) [facility]2022-07-25 02:20:00 Test Item Value Reference Range Interpretation Comments Albumin Lvl (test code = Albumin Lvl) 3.4 3.5-5.0 [facility] [id number] 02:20:00 Test Item Value Reference Range Interpretation Comments ALT (test code = ALT) 18 See_Comment [Auto mated message] The system which ge nerated this result transmit lavon reference range : <=65. The reference range was not used to interpr et this result as dionne l/abnormal. [facility] [id number] 02:20:00 Test Item Value Reference Range Interpretation Comments AST (test code = AST) 27 See_Comment [Auto mated message] The system which ge nerated this result transmit lavon reference range : <=37. The reference range was not used to interpr et this result as dionne l/abnormal. [facility] [employer] [id number] 02:20:00 Test Item Value Reference Range Interpretation Comments Alk Phos (test code = Alk Phos) 57 39-136 [facility] [id number] 02:20:00 Test Item Value Reference Range Interpretation Comments Bili Total (test code = Bili Total) 1.0 0.2-1.3 [facility] [id number] 02:20:00 Test Item Value Reference Range Interpretation Comments AGAP (test code = AGAP) 12.2 10.0-20.0 [facility] [id number] 02:20:00 Test Item Value Reference Range Interpretation Comments B/C Ratio (test code = B/C Ratio) 24 1 6-25 [facility] [id number] 02:20:00 Test Item Value Reference Range Interpretation Comments Globulin (test code = Globulin) 3.6 2.7-4.2 [facility] [employer] [id number] 02:20:00 Test Item Value Reference Range Interpretation Comments A/G Ratio (test code = A/G Ratio) 0.9 1 0.7-1.6 [facility] [id number] 02:20:00 Test Item Value Reference Range Interpretation Comments eGFR (test code = eGFR) 62 [facility] CenterTyqzzajHCUTORRHPN1426-17-28 02:20:00 Test Item Value Reference Range Interpretation Comments WBC (test code = WBC) 8.6 3.7-10.4 [facility] CenterOvmfindFNFTFDUZVE7463-65-84 02:20:00 Test Item Value Reference Range Interpretation Comments RBC (test code = RBC) 3.58 4.20-5.40 [place] 325412-07-25 02:20:00 Test Item Value Reference Range Interpretation Comments Hgb (test code = Hgb) 8.8 12.0-16.0 [place] 325412-07-25 02:20:00 Test Item Value Reference Range Interpretation Comments Hct (test code = Hct) 27.1 36.0-48.0 [facility] CampusOwypnjcEYQAEJMQWQ5684-25-05 02:20:00 Test Item Value Reference Range Interpretation Comments MCV (test code = MCV) 75.6 80.0-98.0 [place] 325412-07-25 02:20:00 Test Item Value Reference Range Interpretation Comments MCH (test code = MCH) 24.5 pg 27.0-31.0 [facility] CampusVzprhcyNJJQQRKIRR4493-07-88 02:20:00 Test Item Value Reference Range Interpretation Comments MCHC (test code = MCHC) 32.4 32.0-36.0 [facility] CampusOstotlrJMEPCBJNRA4213-12-48 02:20:00 Test Item Value Reference Range Interpretation Comments RDW (test code = RDW) 21.1 11.5-14.5 [place] 325412-07-25 02:20:00 Test Item Value Reference Range Interpretation Comments Platelet (test code = Platelet) 297 133-450 [facility] CampusVkgfwpuVEQVLSHBZQ8273-82-07 02:20:00 Test Item Value Reference Range Interpretation Comments MPV (test code = MPV) 7.5 7.4-10.4 [place] 325412-07-25 02:20:00 Test Item Value Reference Range Interpretation Comments Segs (test code = Segs) 85.8 45.0-75.0 [place] 325412-07-25 02:20:00 Test Item Value Reference Range Interpretation Comments Lymphocytes (test code = Lymphocytes) 8.5 20.0-40.0 [place] 325412-07-25 02:20:00 Test Item Value Reference Range Interpretation Comments Monocytes (test code = Monocytes) 5.0 2.0-12.0 [place] 325412-07-25 02:20:00 Test Item Value Reference Range Interpretation Comments Eosinophils (test code = 0.3 See_Comment [A utomated message] The Eosinophils) system which ge nerated this result tra nsmitted reference range : <=4.0. The reference r hugo was not used to int erpret this result as normal/abnormal . [facility] CampusHhgftfmDJLYEXIVYX7782-38-16 02:20:00 Test Item Value Reference Range Interpretation Comments Basophils (test code = 0.4 See_Comment [Aut omated message] The Basophils) system which ge nerated this result tra nsmitted reference range : <=1.0. The reference r hugo was not used to int erpret this result as normal/abnormal . [facility] CampusNckiuzzRNDQUGPLDI4893-97-76 02:20:00 Test Item Value Reference Range Interpretation Comments Neutrophils # (test code = Neutrophils 7.4 1.5-8.1 #) [facility] CampusAmofxbpPAJVUVARGT0358-14-74 02:20:00 Test Item Value Reference Range Interpretation Comments Lymphocytes # (test code = Lymphocytes 0.7 1.0-5.5 #) [facility] CampusMrtkcniLNZUNLEJLH1383-30-05 02:20:00 Test Item Value Reference Range Interpretation Comments Monocytes # (test code 0.4 See_Comment [Aut omated message] The = Monocytes #) system which generated this result tra nsmitted reference range : <=0.8. The reference r hugo was not used to int erpret this result as normal/abnormal . [facility] [id number] 02:20:00 Test Item Value Reference Range Interpretation Comments Microcyte (test code = 1+ *ABN*(06/12/22 Microcyte) 9:20 PM) [facility] [id number] 02:20:00 Test Item Value Reference Range Interpretation Comments HS Troponin I (test code = HS Troponin 52 I) [facility] HospitalLiquidTalk [id number] 02:20:00 Test Item Value Reference Range Interpretation Comments Glucose Lvl (test code = Glucose Lvl) 103 70-99 [facility] HospitalL[facility]id[facility] [id number] 02:20:00 Test Item Value Reference Range Interpretation Comments BUN (test code = BUN) 22 7-22 [facility] [id number] 02:20:00 Test Item Value Reference Range Interpretation Comments Creatinine Lvl (test code = Creatinine 0.90 0.50-1.40 Lvl) [place] 480482-07-25 02:20:00 Test Item Value Reference Range Interpretation Comments Sodium Lvl (test code = Sodium Lvl) 131 135-145 [place] 480482-07-25 02:20:00 Test Item Value Reference Range Interpretation Comments Potassium Lvl (test code = Potassium 4.2 3.5-5.1 Lvl) [place] 480482-07-25 02:20:00 Test Item Value Reference Range Interpretation Comments Chloride Lvl (test code = Chloride Lvl) 97 95-109 [place] [address]-07-25 02:20:00 Test Item Value Reference Range Interpretation Comments CO2 (test code = CO2) 26 24-32 [place] 480482-07-25 02:20:00 Test Item Value Reference Range Interpretation Comments Calcium Lvl (test code = Calcium Lvl) 8.7 8.5-10.5 [place] 480482-07-25 02:20:00 Test Item Value Reference Range Interpretation Comments Total Protein (test code = Total 7.0 6.4-8.4 Protein) [place] 480482-07-25 02:20:00 Test Item Value Reference Range Interpretation Comments Albumin Lvl (test code = Albumin Lvl) 3.4 3.5-5.0 [place] 480482-07-25 02:20:00 Test Item Value Reference Range Interpretation Comments ALT (test code = ALT) 18 See_Comment [Auto mated message] The system which ge nerated this result transmit lavon reference range : <=65. The reference range was not used to interpr et this result as dionne l/abnormal. [place] 480482-07-25 02:20:00 Test Item Value Reference Range Interpretation Comments AST (test code = AST) 27 See_Comment [Auto mated message] The system which ge nerated this result transmit lavon reference range : <=37. The reference range was not used to interpr et this result as dionne l/abnormal. [place] 480482-07-25 02:20:00 Test Item Value Reference Range Interpretation Comments Alk Phos (test code = Alk Phos) 57 39-136 [place] 480482-07-25 02:20:00 Test Item Value Reference Range Interpretation Comments Bili Total (test code = Bili Total) 1.0 0.2-1.3 [facility]2022-07-25 02:20:00 Test Item Value Reference Range Interpretation Comments AGAP (test code = AGAP) 12.2 10.0-20.0 [place] 480482-07-25 02:20:00 Test Item Value Reference Range Interpretation Comments B/C Ratio (test code = B/C Ratio) 24 1 6-25 [place] 480482-07-25 02:20:00 Test Item Value Reference Range Interpretation Comments Globulin (test code = Globulin) 3.6 2.7-4.2 [place] 480482-07-25 02:20:00 Test Item Value Reference Range Interpretation Comments A/G Ratio (test code = A/G Ratio) 0.9 1 0.7-1.6 [place] 480482-07-25 02:20:00 Test Item Value Reference Range Interpretation Comments eGFR (test code = eGFR) 62 [facility] CampusWrgnyltPOPXXJVCAE5085-02-35 02:20:00 Test Item Value Reference Range Interpretation Comments WBC (test code = WBC) 8.6 3.7-10.4 [place] 325412-07-25 02:20:00 Test Item Value Reference Range Interpretation Comments RBC (test code = RBC) 3.58 4.20-5.40 [place] 325412-07-25 02:20:00 Test Item Value Reference Range Interpretation Comments Hgb (test code = Hgb) 8.8 12.0-16.0 [place] 325412-07-25 02:20:00 Test Item Value Reference Range Interpretation Comments Hct (test code = Hct) 27.1 36.0-48.0 [place] 325412-07-25 02:20:00 Test Item Value Reference Range Interpretation Comments MCV (test code = MCV) 75.6 80.0-98.0 [place] 325412-07-25 02:20:00 Test Item Value Reference Range Interpretation Comments MCH (test code = MCH) 24.5 pg 27.0-31.0 [place] 325412-07-25 02:20:00 Test Item Value Reference Range Interpretation Comments MCHC (test code = MCHC) 32.4 32.0-36.0 [place] 325412-07-25 02:20:00 Test Item Value Reference Range Interpretation Comments RDW (test code = RDW) 21.1 11.5-14.5 [place] 325412-07-25 02:20:00 Test Item Value Reference Range Interpretation Comments Platelet (test code = Platelet) 297 133-450 [place] 325412-07-25 02:20:00 Test Item Value Reference Range Interpretation Comments MPV (test code = MPV) 7.5 7.4-10.4 [place] 325412-07-25 02:20:00 Test Item Value Reference Range Interpretation Comments Segs (test code = Segs) 85.8 45.0-75.0 [place] 325412-07-25 02:20:00 Test Item Value Reference Range Interpretation Comments Lymphocytes (test code = Lymphocytes) 8.5 20.0-40.0 [place] 325412-07-25 02:20:00 Test Item Value Reference Range Interpretation Comments Monocytes (test code = Monocytes) 5.0 2.0-12.0 [place] 325412-07-25 02:20:00 Test Item Value Reference Range Interpretation Comments Eosinophils (test code = 0.3 See_Comment [A utomated message] The Eosinophils) system which ge nerated this result tra nsmitted reference range : <=4.0. The reference r hugo was not used to int erpret this result as normal/abnormal . [facility] CampusRsooapyCPPOSLDBOU3281-25-02 02:20:00 Test Item Value Reference Range Interpretation Comments Basophils (test code = 0.4 See_Comment [Aut omated message] The Basophils) system which ge nerated this result tra nsmitted reference range : <=1.0. The reference r hugo was not used to int erpret this result as normal/abnormal . [place] 325412-07-25 02:20:00 Test Item Value Reference Range Interpretation Comments Neutrophils # (test code = Neutrophils 7.4 1.5-8.1 #) [place] 325412-07-25 02:20:00 Test Item Value Reference Range Interpretation Comments Lymphocytes # (test code = Lymphocytes 0.7 1.0-5.5 #) [place] 325412-07-25 02:20:00 Test Item Value Reference Range Interpretation Comments Monocytes # (test code 0.4 See_Comment [Aut omated message] The = Monocytes #) system which generated this result tra nsmitted reference range : <=0.8. The reference r hugo was not used to int erpret this result as normal/abnormal . [id number] 02:20:00 Test Item Value Reference Range Interpretation Comments Microcyte (test code = 1+ *ABN*(06/12/22 Microcyte) 9:20 PM) [facility] [id number] 02:20:00 Test Item Value Reference Range Interpretation Comments HS Troponin I (test code = HS Troponin 52 I) [facility] [id number] 02:20:00 Test Item Value Reference Range Interpretation Comments Glucose Lvl (test code = Glucose Lvl) 103 70-99 [facility] [id number] 02:20:00 Test Item Value Reference Range Interpretation Comments BUN (test code = BUN) 22 7-22 [facility] [id number] 02:20:00 Test Item Value Reference Range Interpretation Comments Creatinine Lvl (test code = Creatinine 0.90 0.50-1.40 Lvl) [facility] [id number] 02:20:00 Test Item Value Reference Range Interpretation Comments Sodium Lvl (test code = Sodium Lvl) 131 135-145 [facility] [id number] 02:20:00 Test Item Value Reference Range Interpretation Comments Potassium Lvl (test code = Potassium 4.2 3.5-5.1 Lvl) [facility] [id number] 02:20:00 Test Item Value Reference Range Interpretation Comments Chloride Lvl (test code = Chloride Lvl) 97 95-109 [facility] [id number] 02:20:00 Test Item Value Reference Range Interpretation Comments CO2 (test code = CO2) 26 24-32 [facility] [id number] 02:20:00 Test Item Value Reference Range Interpretation Comments Calcium Lvl (test code = Calcium Lvl) 8.7 8.5-10.5 [facility] [id number] 02:20:00 Test Item Value Reference Range Interpretation Comments Total Protein (test code = Total 7.0 6.4-8.4 Protein) [facility]2022-07-25 02:20:00 Test Item Value Reference Range Interpretation Comments Albumin Lvl (test code = Albumin Lvl) 3.4 3.5-5.0 [facility]2022-07-25 02:20:00 Test Item Value Reference Range Interpretation Comments ALT (test code = ALT) 18 See_Comment [Auto mated message] The system which ge nerated this result transmit lavon reference range : <=65. The reference range was not used to interpr et this result as dionne l/abnormal. [place] 480482-07-25 02:20:00 Test Item Value Reference Range Interpretation Comments AST (test code = AST) 27 See_Comment [Auto mated message] The system which ge nerated this result transmit lavon reference range : <=37. The reference range was not used to interpr et this result as dionne l/abnormal. [place] 480482-07-25 02:20:00 Test Item Value Reference Range Interpretation Comments Alk Phos (test code = Alk Phos) 57 39-136 [place] 480482-07-25 02:20:00 Test Item Value Reference Range Interpretation Comments Bili Total (test code = Bili Total) 1.0 0.2-1.3 [place] 480482-07-25 02:20:00 Test Item Value Reference Range Interpretation Comments AGAP (test code = AGAP) 12.2 10.0-20.0 [place] 480482-07-25 02:20:00 Test Item Value Reference Range Interpretation Comments B/C Ratio (test code = B/C Ratio) 24 1 6-25 [place] 480482-07-25 02:20:00 Test Item Value Reference Range Interpretation Comments Globulin (test code = Globulin) 3.6 2.7-4.2 [place] 480482-07-25 02:20:00 Test Item Value Reference Range Interpretation Comments A/G Ratio (test code = A/G Ratio) 0.9 1 0.7-1.6 [place] 480482-07-25 02:20:00 Test Item Value Reference Range Interpretation Comments eGFR (test code = eGFR) 62 [facility] CampusSqwxksiRDETWLBZMN1168-53-12 02:20:00 Test Item Value Reference Range Interpretation Comments WBC (test code = WBC) 8.6 3.7-10.4 [facility] CampusEhmyundUARYDKPWET6843-57-29 02:20:00 Test Item Value Reference Range Interpretation Comments RBC (test code = RBC) 3.58 4.20-5.40 [facility] CampusUzyccgjATXHQTCRWF8706-48-83 02:20:00 Test Item Value Reference Range Interpretation Comments Hgb (test code = Hgb) 8.8 12.0-16.0 [facility] CampusRfusqvmUYZAZHAPYE1835-00-97 02:20:00 Test Item Value Reference Range Interpretation Comments Hct (test code = Hct) 27.1 36.0-48.0 [facility] CampusPafuhffRNOEYCXKIN8764-38-92 02:20:00 Test Item Value Reference Range Interpretation Comments MCV (test code = MCV) 75.6 80.0-98.0 [facility] CampusXornqsrFXAEDAPNCE3340-36-99 02:20:00 Test Item Value Reference Range Interpretation Comments MCH (test code = MCH) 24.5 pg 27.0-31.0 [facility] CampusQggwngnSLUYJTAXAT5082-99-01 02:20:00 Test Item Value Reference Range Interpretation Comments MCHC (test code = MCHC) 32.4 32.0-36.0 [facility] CampusRohcxyaWIAOAMZZRX9353-38-21 02:20:00 Test Item Value Reference Range Interpretation Comments RDW (test code = RDW) 21.1 11.5-14.5 [facility] CampusNiskjxiOUWYBGZGCC8135-45-14 02:20:00 Test Item Value Reference Range Interpretation Comments Platelet (test code = Platelet) 297 133-450 [facility] CampusNhoyxnjOZPOHBUOBF4622-28-04 02:20:00 Test Item Value Reference Range Interpretation Comments MPV (test code = MPV) 7.5 7.4-10.4 [facility] CampusUqmylmvCKXTCRAYQB4054-69-18 02:20:00 Test Item Value Reference Range Interpretation Comments Segs (test code = Segs) 85.8 45.0-75.0 [facility] CampusQrujamhBNCSMXOWTW8958-71-86 02:20:00 Test Item Value Reference Range Interpretation Comments Lymphocytes (test code = Lymphocytes) 8.5 20.0-40.0 [facility] CampusScrlqgvHUEDOVLIIE7478-56-27 02:20:00 Test Item Value Reference Range Interpretation Comments Monocytes (test code = Monocytes) 5.0 2.0-12.0 [facility] CampusPufyeyqPUDTNTKEDL2164-80-06 02:20:00 Test Item Value Reference Range Interpretation Comments Eosinophils (test code = 0.3 See_Comment [A utomated message] The Eosinophils) system which ge nerated this result tra nsmitted reference range : <=4.0. The reference r hugo was not used to int erpret this result as normal/abnormal . [facility] CampusSrxcsolJUYGFNJKRZ3056-60-41 02:20:00 Test Item Value Reference Range Interpretation Comments Basophils (test code = 0.4 See_Comment [Aut omated message] The Basophils) system which ge nerated this result tra nsmitted reference range : <=1.0. The reference r hugo was not used to int erpret this result as normal/abnormal . [facility] CampusMsdnaxdTMRDTQUAMZ5991-87-66 02:20:00 Test Item Value Reference Range Interpretation Comments Neutrophils # (test code = Neutrophils 7.4 1.5-8.1 #) [facility] CampusLcifqpfFZLQQPOEFR2094-03-99 02:20:00 Test Item Value Reference Range Interpretation Comments Lymphocytes # (test code = Lymphocytes 0.7 1.0-5.5 #) [facility] CampusRjgenyrTIGWKHYIGI6696-07-15 02:20:00 Test Item Value Reference Range Interpretation Comments Monocytes # (test code 0.4 See_Comment [Aut omated message] The = Monocytes #) system which generated this result tra nsmitted reference range : <=0.8. The reference r hugo was not used to int erpret this result as normal/abnormal . [facility] CampusSrwnbgvSVVNJSDMAH9015-66-94 02:20:00 Test Item Value Reference Range Interpretation Comments Microcyte (test code = 1+ *ABN*(06/12/22 Microcyte) 9:20 PM) [facility] [id number] 02:20:00 Test Item Value Reference Range Interpretation Comments HS Troponin I (test code = HS Troponin 52 I) [facility]2022-07-25 02:20:00 Test Item Value Reference Range Interpretation Comments Glucose Lvl (test code = Glucose Lvl) 103 70-99 [facility]2022-07-25 02:20:00 Test Item Value Reference Range Interpretation Comments BUN (test code = BUN) 22 - [place] 480482-07-25 02:20:00 Test Item Value Reference Range Interpretation Comments Creatinine Lvl (test code = Creatinine 0.90 0.50-1.40 Lvl) [place] 480482-07-25 02:20:00 Test Item Value Reference Range Interpretation Comments Sodium Lvl (test code = Sodium Lvl) 131 135-145 [place] 480482-07-25 02:20:00 Test Item Value Reference Range Interpretation Comments Potassium Lvl (test code = Potassium 4.2 3.5-5.1 Lvl) [place] 480482-07-25 02:20:00 Test Item Value Reference Range Interpretation Comments Chloride Lvl (test code = Chloride Lvl) 97 95-109 [place] 480482-07-25 02:20:00 Test Item Value Reference Range Interpretation Comments CO2 (test code = CO2) 26 24-32 [place] 480482-07-25 02:20:00 Test Item Value Reference Range Interpretation Comments Calcium Lvl (test code = Calcium Lvl) 8.7 8.5-10.5 [place] 480482-07-25 02:20:00 Test Item Value Reference Range Interpretation Comments Total Protein (test code = Total 7.0 6.4-8.4 Protein) [place] 480482-07-25 02:20:00 Test Item Value Reference Range Interpretation Comments Albumin Lvl (test code = Albumin Lvl) 3.4 3.5-5.0 [place] 480482-07-25 02:20:00 Test Item Value Reference Range Interpretation Comments ALT (test code = ALT) 18 See_Comment [Auto mated message] The system which [employer] nerated this result transmit lavon reference range : <=65. The reference range was not used to interpr et this result as dionne l/abnormal. [place] 480482-07-25 02:20:00 Test Item Value Reference Range Interpretation Comments AST (test code = AST) 27 See_Comment [Auto mated message] The system which ge nerated this result transmit lavon reference range : <=37. The reference range was not used to interpr et this result as dionne l/abnormal. [place] 480482-07-25 02:20:00 Test Item Value Reference Range Interpretation Comments Alk Phos (test code = Alk Phos) 57 39-136 [facility]2022-07-25 02:20:00 Test Item Value Reference Range Interpretation Comments Bili Total (test code = Bili Total) 1.0 0.2-1.3 [place] 480482-07-25 02:20:00 Test Item Value Reference Range Interpretation Comments AGAP (test code = AGAP) 12.2 10.0-20.0 [place] 480482-07-25 02:20:00 Test Item Value Reference Range Interpretation Comments B/C Ratio (test code = B/C Ratio) 24 1 6-25 [place] 480482-07-25 02:20:00 Test Item Value Reference Range Interpretation Comments Globulin (test code = Globulin) 3.6 2.7-4.2 [place] 480482-07-25 02:20:00 Test Item Value Reference Range Interpretation Comments A/G Ratio (test code = A/G Ratio) 0.9 1 0.7-1.6 [place] 480482-07-25 02:20:00 Test Item Value Reference Range Interpretation Comments eGFR (test code = eGFR) 62 [place] 325412-07-25 02:20:00 Test Item Value Reference Range Interpretation Comments WBC (test code = WBC) 8.6 3.7-10.4 [place] 325412-07-25 02:20:00 Test Item Value Reference Range Interpretation Comments RBC (test code = RBC) 3.58 4.20-5.40 [place] 325412-07-25 02:20:00 Test Item Value Reference Range Interpretation Comments Hgb (test code = Hgb) 8.8 12.0-16.0 [place] 325412-07-25 02:20:00 Test Item Value Reference Range Interpretation Comments Hct (test code = Hct) 27.1 36.0-48.0 [place] [address]-07-25 02:20:00 Test Item Value Reference Range Interpretation Comments MCV (test code = MCV) 75.6 80.0-98.0 [place] 325412-07-25 02:20:00 Test Item Value Reference Range Interpretation Comments MCH (test code = MCH) 24.5 pg 27.0-31.0 [place] 325412-07-25 02:20:00 Test Item Value Reference Range Interpretation Comments MCHC (test code = MCHC) 32.4 32.0-36.0 [place] 325412-07-25 02:20:00 Test Item Value Reference Range Interpretation Comments RDW (test code = RDW) 21.1 11.5-14.5 [place] 325412-07-25 02:20:00 Test Item Value Reference Range Interpretation Comments Platelet (test code = Platelet) 297 133-450 [place] 325412-07-25 02:20:00 Test Item Value Reference Range Interpretation Comments MPV (test code = MPV) 7.5 7.4-10.4 [place] 325412-07-25 02:20:00 Test Item Value Reference Range Interpretation Comments Segs (test code = Segs) 85.8 45.0-75.0 [place] 325412-07-25 02:20:00 Test Item Value Reference Range Interpretation Comments Lymphocytes (test code = Lymphocytes) 8.5 20.0-40.0 [place] 325412-07-25 02:20:00 Test Item Value Reference Range Interpretation Comments Monocytes (test code = Monocytes) 5.0 2.0-12.0 [place] 325412-07-25 02:20:00 Test Item Value Reference Range Interpretation Comments Eosinophils (test code = 0.3 See_Comment [A utomated message] The Eosinophils) system which ge nerated this result tra nsmitted reference range : <=4.0. The reference r hugo was not used to int erpret this result as normal/abnormal . [facility] CampusVbqqljxETEREUYJBL5222-63-22 02:20:00 Test Item Value Reference Range Interpretation Comments Basophils (test code = 0.4 See_Comment [Aut omated message] The Basophils) system which ge nerated this result tra nsmitted reference range : <=1.0. The reference r hugo was not used to int erpret this result as normal/abnormal . [place] 325412-07-25 02:20:00 Test Item Value Reference Range Interpretation Comments Neutrophils # (test code = Neutrophils 7.4 1.5-8.1 #) [place] 325412-07-25 02:20:00 Test Item Value Reference Range Interpretation Comments Lymphocytes # (test code = Lymphocytes 0.7 1.0-5.5 #) [facility] CampusNdnvchfMTAVUCQBCB1244-60-46 02:20:00 Test Item Value Reference Range Interpretation Comments Monocytes # (test code 0.4 See_Comment [Aut omated message] The = Monocytes #) system which generated this result tra nsmitted reference range : <=0.8. The reference r hugo was not used to int erpret this result as normal/abnormal . [facility]SpsgwxxNNZAPIFAUQ2686-66-61 02:20:00 Test Item Value Reference Range Interpretation Comments Microcyte (test code = 1+ *ABN*(06/12/22 Microcyte) 9:20 PM) [facility] [id number] 02:20:00 Test Item Value Reference Range Interpretation Comments HS Troponin I (test code = HS Troponin 52 I) [facility] [id number] 02:20:00 Test Item Value Reference Range Interpretation Comments Glucose Lvl (test code = Glucose Lvl) 103 70-99 [facility]2022-07-25 02:20:00 Test Item Value Reference Range Interpretation Comments BUN (test code = BUN) 22 7-22 [facility]2022-07-25 02:20:00 Test Item Value Reference Range Interpretation Comments Creatinine Lvl (test code = Creatinine 0.90 0.50-1.40 Lvl) [facility] [id number] 02:20:00 Test Item Value Reference Range Interpretation Comments Sodium Lvl (test code = Sodium Lvl) 131 135-145 [facility] [id number] 02:20:00 Test Item Value Reference Range Interpretation Comments Potassium Lvl (test code = Potassium 4.2 3.5-5.1 Lvl) [facility] [id number] 02:20:00 Test Item Value Reference Range Interpretation Comments Chloride Lvl (test code = Chloride Lvl) 97 95-109 [facility] [id number] 02:20:00 Test Item Value Reference Range Interpretation Comments CO2 (test code = CO2) 26 24-32 [facility] [id number] 02:20:00 Test Item Value Reference Range Interpretation Comments Calcium Lvl (test code = Calcium Lvl) 8.7 8.5-10.5 [facility] [id number] 02:20:00 Test Item Value Reference Range Interpretation Comments Total Protein (test code = Total 7.0 6.4-8.4 Protein) [facility]2022-07-25 02:20:00 Test Item Value Reference Range Interpretation Comments Albumin Lvl (test code = Albumin Lvl) 3.4 3.5-5.0 [facility] [id number] 02:20:00 Test Item Value Reference Range Interpretation Comments ALT (test code = ALT) 18 See_Comment [Auto mated message] The system which ge nerated this result transmit lavon reference range : <=65. The reference range was not used to interpr et this result as dionne l/abnormal. [facility] [id number] 02:20:00 Test Item Value Reference Range Interpretation Comments AST (test code = AST) 27 See_Comment [Auto mated message] The system which ge nerated this result transmit lavon reference range : <=37. The reference range was not used to interpr et this result as dionne l/abnormal. [facility] [id number] 02:20:00 Test Item Value Reference Range Interpretation Comments Alk Phos (test code = Alk Phos) 57 39-136 [facility] [id number] 02:20:00 Test Item Value Reference Range Interpretation Comments Bili Total (test code = Bili Total) 1.0 0.2-1.3 [facility] [id number] 02:20:00 Test Item Value Reference Range Interpretation Comments AGAP (test code = AGAP) 12.2 10.0-20.0 [facility] [id number] 02:20:00 Test Item Value Reference Range Interpretation Comments B/C Ratio (test code = B/C Ratio) 24 1 6-25 [facility] [id number] 02:20:00 Test Item Value Reference Range Interpretation Comments Globulin (test code = Globulin) 3.6 2.7-4.2 [facility] [id number] 02:20:00 Test Item Value Reference Range Interpretation Comments A/G Ratio (test code = A/G Ratio) 0.9 1 0.7-1.6 [facility]2022-07-25 02:20:00 Test Item Value Reference Range Interpretation Comments eGFR (test code = eGFR) 62 [facility] CampusWsdicpbXGUBOXNNPZ7665-07-45 02:20:00 Test Item Value Reference Range Interpretation Comments WBC (test code = WBC) 8.6 3.7-10.4 [facility] CampusJouuabaMYMTAGPOOW6856-42-77 02:20:00 Test Item Value Reference Range Interpretation Comments RBC (test code = RBC) 3.58 4.20-5.40 [place] 325412-07-25 02:20:00 Test Item Value Reference Range Interpretation Comments Hgb (test code = Hgb) 8.8 12.0-16.0 [place] 325412-07-25 02:20:00 Test Item Value Reference Range Interpretation Comments Hct (test code = Hct) 27.1 36.0-48.0 [facility] CampusXkarofmLCIQFPOAEG6936-76-86 02:20:00 Test Item Value Reference Range Interpretation Comments MCV (test code = MCV) 75.6 80.0-98.0 [facility] CampusKvzfbnlUREJUHBZXW2299-66-49 02:20:00 Test Item Value Reference Range Interpretation Comments MCH (test code = MCH) 24.5 pg 27.0-31.0 [facility] C[id number] 02:20:00 Test Item Value Reference Range Interpretation Comments MCHC (test code = MCHC) 32.4 32.0-36.0 [facility] CampusSfniqjpVFNZGPGUPC4914-58-57 02:20:00 Test Item Value Reference Range Interpretation Comments RDW (test code = RDW) 21.1 11.5-14.5 [place] 325412-07-25 02:20:00 Test Item Value Reference Range Interpretation Comments Platelet (test code = Platelet) 297 133-450 [facility] Camp[id number] 02:20:00 Test Item Value Reference Range Interpretation Comments MPV (test code = MPV) 7.5 7.4-10.4 [place] 325412-07-25 02:20:00 Test Item Value Reference Range Interpretation Comments Segs (test code = Segs) 85.8 45.0-75.0 [facility] CampusOwcbajsRGHYVNIFZC1468-56-52 02:20:00 Test Item Value Reference Range Interpretation Comments Lymphocytes (test code = Lymphocytes) 8.5 20.0-40.0 [facility] CampusPogzqqbSZTEBBTQVA1272-12-49 02:20:00 Test Item Value Reference Range Interpretation Comments Monocytes (test code = Monocytes) 5.0 2.0-12.0 [facility] CampusEtmafauDVXMVBIMVF7949-06-04 02:20:00 Test Item Value Reference Range Interpretation Comments Eosinophils (test code = 0.3 See_Comment [A utomated message] The Eosinophils) system which ge nerated this result tra nsmitted reference range : <=4.0. The reference r hugo was not used to int erpret this result as normal/abnormal . [facility] C[id number] 02:20:00 Test Item Value Reference Range Interpretation Comments Basophils (test code = 0.4 See_Comment [Aut omated message] The Basophils) system which ge nerated this result tra nsmitted reference range : <=1.0. The reference r hugo was not used to int erpret this result as normal/abnormal . [facility] CampusMgkglqtCHSVUQLQVE1216-06-76 02:20:00 Test Item Value Reference Range Interpretation Comments Neutrophils # (test code = Neutrophils 7.4 1.5-8.1 #) [facility] CampusRzqebrgBQBRIGHGNY9370-04-78 02:20:00 Test Item Value Reference Range Interpretation Comments Lymphocytes # (test code = Lymphocytes 0.7 1.0-5.5 #) [facility] CampusAwzyoqnDRZTEDJTJH2310-35-44 02:20:00 Test Item Value Reference Range Interpretation Comments Monocytes # (test code 0.4 See_Comment [Aut omated message] The = Monocytes #) system which generated this result tra nsmitted reference range : <=0.8. The reference r hugo was not used to int erpret this result as normal/abnormal . [facility] CampusIcloimwISPPPRPDNI2621-87-90 02:20:00 Test Item Value Reference Range Interpretation Comments Microcyte (test code = 1+ *ABN*(06/12/22 Microcyte) 9:20 PM) [facility] [id number] 02:20:00 Test Item Value Reference Range Interpretation Comments HS Troponin I (test code = HS Troponin 52 I) [facility] [id number] 02:20:00 Test Item Value Reference Range Interpretation Comments Glucose Lvl (test code = Glucose Lvl) 103 70-99 [place] 480482-07-25 02:20:00 Test Item Value Reference Range Interpretation Comments BUN (test code = BUN) 22 7-22 [place] 480482-07-25 02:20:00 Test Item Value Reference Range Interpretation Comments Creatinine Lvl (test code = Creatinine 0.90 0.50-1.40 Lvl) [place] 480482-07-25 02:20:00 Test Item Value Reference Range Interpretation Comments Sodium Lvl (test code = Sodium Lvl) 131 135-145 [place] 480482-07-25 02:20:00 Test Item Value Reference Range Interpretation Comments Potassium Lvl (test code = Potassium 4.2 3.5-5.1 Lvl) [address]07-25 02:20:00 Test Item Value Reference Range Interpretation Comments Chloride Lvl (test code = Chloride Lvl) 97 95-109 [place] 480482-07-25 02:20:00 Test Item Value Reference Range Interpretation Comments CO2 (test code = CO2) 26 24-32 [place] 480482-07-25 02:20:00 Test Item Value Reference Range Interpretation Comments Calcium Lvl (test code = Calcium Lvl) 8.7 8.5-10.5 [place] [address]-07-25 02:20:00 Test Item Value Reference Range Interpretation Comments Total Protein (test code = Total 7.0 6.4-8.4 Protein) [place] 480482-07-25 02:20:00 Test Item Value Reference Range Interpretation Comments Albumin Lvl (test code = Albumin Lvl) 3.4 3.5-5.0 [place] 480482-07-25 02:20:00 Test Item Value Reference Range Interpretation Comments ALT (test code = ALT) 18 See_Comment [Auto mated message] The system which ge nerated this result transmit lavon reference range : <=65. The reference range was not used to interpr et this result as dionne l/abnormal. [place] 480482-07-25 02:20:00 Test Item Value Reference Range Interpretation Comments AST (test code = AST) 27 See_Comment [Auto mated message] The system which ge nerated this result transmit lavon reference range : <=37. The reference range was not used to interpr et this result as dionne l/abnormal. [place] 480482-07-25 02:20:00 Test Item Value Reference Range Interpretation Comments Alk Phos (test code = Alk Phos) 57 39-136 [place] 480482-07-25 02:20:00 Test Item Value Reference Range Interpretation Comments Bili Total (test code = Bili Total) 1.0 0.2-1.3 [place] 480482-07-25 02:20:00 Test Item Value Reference Range Interpretation Comments AGAP (test code = AGAP) 12.2 10.0-20.0 [place] 480482-07-25 02:20:00 Test Item Value Reference Range Interpretation Comments B/C Ratio (test code = B/C Ratio) 24 1 6-25 [place] [address]-07-25 02:20:00 Test Item Value Reference Range Interpretation Comments Globulin (test code = Globulin) 3.6 2.7-4.2 [place] 480482-07-25 02:20:00 Test Item Value Reference Range Interpretation Comments A/G Ratio (test code = A/G Ratio) 0.9 1 0.7-1.6 [place] 480482-07-25 02:20:00 Test Item Value Reference Range Interpretation Comments eGFR (test code = eGFR) 62 [place] 325412-07-25 02:20:00 Test Item Value Reference Range Interpretation Comments WBC (test code = WBC) 8.6 3.7-10.4 [place] 325412-07-25 02:20:00 Test Item Value Reference Range Interpretation Comments RBC (test code = RBC) 3.58 4.20-5.40 [place] 325412-07-25 02:20:00 Test Item Value Reference Range Interpretation Comments Hgb (test code = Hgb) 8.8 12.0-16.0 [place] [address]-07-25 02:20:00 Test Item Value Reference Range Interpretation Comments Hct (test code = Hct) 27.1 36.0-48.0 [place] [address]-07-25 02:20:00 Test Item Value Reference Range Interpretation Comments MCV (test code = MCV) 75.6 80.0-98.0 [place] 325412-07-25 02:20:00 Test Item Value Reference Range Interpretation Comments MCH (test code = MCH) 24.5 pg 27.0-31.0 [facility] CampusGtuxdcgNLCLRWOFZG3309-00-26 02:20:00 Test Item Value Reference Range Interpretation Comments MCHC (test code = MCHC) 32.4 32.0-36.0 [facility] CampusKrynqchXCWSITIFLD8470-86-26 02:20:00 Test Item Value Reference Range Interpretation Comments RDW (test code = RDW) 21.1 11.5-14.5 [place] 325412-07-25 02:20:00 Test Item Value Reference Range Interpretation Comments Platelet (test code = Platelet) 297 133-450 [facility] CampusFzzyowjLLQICQIVHV0872-85-56 02:20:00 Test Item Value Reference Range Interpretation Comments MPV (test code = MPV) 7.5 7.4-10.4 [facility] CampusFeijuuzPGHEYIJEIX0355-41-10 02:20:00 Test Item Value Reference Range Interpretation Comments Segs (test code = Segs) 85.8 45.0-75.0 [place] 325412-07-25 02:20:00 Test Item Value Reference Range Interpretation Comments Lymphocytes (test code = Lymphocytes) 8.5 20.0-40.0 [facility] CampusKcvyadsYYIQUYRAKV5451-29-20 02:20:00 Test Item Value Reference Range Interpretation Comments Monocytes (test code = Monocytes) 5.0 2.0-12.0 [facility] CampusRauduxeGALWVOSJUV8740-95-54 02:20:00 Test Item Value Reference Range Interpretation Comments Eosinophils (test code = 0.3 See_Comment [A utomated message] The Eosinophils) system which ge nerated this result tra nsmitted reference range : <=4.0. The reference r hugo was not used to int erpret this result as normal/abnormal . [place] 325412-07-25 02:20:00 Test Item Value Reference Range Interpretation Comments Basophils (test code = 0.4 See_Comment [Aut omated message] The Basophils) system which ge nerated this result tra nsmitted reference range : <=1.0. The reference r hugo was not used to int erpret this result as normal/abnormal . [place] 325412-07-25 02:20:00 Test Item Value Reference Range Interpretation Comments Neutrophils # (test code = Neutrophils 7.4 1.5-8.1 #) [facility]QU[facility]W1035[facility]12 02:20:00 Test Item Value Reference Range Interpretation Comments Lymphocytes # (test code = Lymphocytes 0.7 1.0-5.5 #) [facility] CampusNblvpvuQONYMQRGQR8029-13-88 02:20:00 Test Item Value Reference Range Interpretation Comments Monocytes # (test code 0.4 See_Comment [Aut omated message] The = Monocytes #) system which generated this result tra nsmitted reference range : <=0.8. The reference r hugo was not used to int erpret this result as normal/abnormal . [facility] CampusAviuimpNOMNDZKLGB2568-42-80 02:20:00 Test Item Value Reference Range Interpretation Comments Microcyte (test code = 1+ *ABN*(06/12/22 Microcyte) 9:20 PM) [facility] [id number] 02:20:00 Test Item Value Reference Range Interpretation Comments HS Troponin I (test code = HS Troponin 52 I) [facility]2022-07-25 02:20:00 Test Item Value Reference Range Interpretation Comments Glucose Lvl (test code = Glucose Lvl) 103 70-99 [facility]2022-07-25 02:20:00 Test Item Value Reference Range Interpretation Comments BUN (test code = BUN) 22 7-22 [facility]2022-07-25 02:20:00 Test Item Value Reference Range Interpretation Comments Creatinine Lvl (test code = Creatinine 0.90 0.50-1.40 Lvl) [facility]2022-07-25 02:20:00 Test Item Value Reference Range Interpretation Comments Sodium Lvl (test code = Sodium Lvl) 131 135-145 [facility]2022-07-25 02:20:00 Test Item Value Reference Range Interpretation Comments Potassium Lvl (test code = Potassium 4.2 3.5-5.1 Lvl) [facility]2022-07-25 02:20:00 Test Item Value Reference Range Interpretation Comments Chloride Lvl (test code = Chloride Lvl) 97 95-109 [facility]2022-07-25 02:20:00 Test Item Value Reference Range Interpretation Comments CO2 (test code = CO2) 26 24-32 [facility] [id number] 02:20:00 Test Item Value Reference Range Interpretation Comments Calcium Lvl (test code = Calcium Lvl) 8.7 8.5-10.5 [facility] [id number] 02:20:00 Test Item Value Reference Range Interpretation Comments Total Protein (test code = Total 7.0 6.4-8.4 Protein) [facility] [id number] 02:20:00 Test Item Value Reference Range Interpretation Comments Albumin Lvl (test code = Albumin Lvl) 3.4 3.5-5.0 [facility] [id number] 02:20:00 Test Item Value Reference Range Interpretation Comments ALT (test code = ALT) 18 See_Comment [Auto mated message] The system which ge nerated this result transmit lavon reference range : <=65. The reference range was not used to interpr et this result as dionne l/abnormal. [facility] [id number] 02:20:00 Test Item Value Reference Range Interpretation Comments AST (test code = AST) 27 See_Comment [Auto mated message] The system which ge nerated this result transmit lavon reference range : <=37. The reference range was not used to interpr et this result as dionne l/abnormal. [facility] [employer] [id number] 02:20:00 Test Item Value Reference Range Interpretation Comments Alk Phos (test code = Alk Phos) 57 39-136 [facility] [employer] [id number] 02:20:00 Test Item Value Reference Range Interpretation Comments Bili Total (test code = Bili Total) 1.0 0.2-1.3 [facility] [id number] 02:20:00 Test Item Value Reference Range Interpretation Comments AGAP (test code = AGAP) 12.2 10.0-20.0 [facility] [employer] [id number] 02:20:00 Test Item Value Reference Range Interpretation Comments B/C Ratio (test code = B/C Ratio) 24 1 6-25 [facility] [id number] 02:20:00 Test Item Value Reference Range Interpretation Comments Globulin (test code = Globulin) 3.6 2.7-4.2 [facility]2022-07-25 02:20:00 Test Item Value Reference Range Interpretation Comments A/G Ratio (test code = A/G Ratio) 0.9 1 0.7-1.6 [facility]2022-07-25 02:20:00 Test Item Value Reference Range Interpretation Comments eGFR (test code = eGFR) 62 [facility] CampusVziqaftQVMYLHAVKA6854-07-32 02:20:00 Test Item Value Reference Range Interpretation Comments WBC (test code = WBC) 8.6 3.7-10.4 [place] 325412-07-25 02:20:00 Test Item Value Reference Range Interpretation Comments RBC (test code = RBC) 3.58 4.20-5.40 [place] 325412-07-25 02:20:00 Test Item Value Reference Range Interpretation Comments Hgb (test code = Hgb) 8.8 12.0-16.0 [place] 325412-07-25 02:20:00 Test Item Value Reference Range Interpretation Comments Hct (test code = Hct) 27.1 36.0-48.0 [facility] CampusNvvkqafWOCQTFKFNT9856-42-14 02:20:00 Test Item Value Reference Range Interpretation Comments MCV (test code = MCV) 75.6 80.0-98.0 [place] 325412-07-25 02:20:00 Test Item Value Reference Range Interpretation Comments MCH (test code = MCH) 24.5 pg 27.0-31.0 [place] 325412-07-25 02:20:00 Test Item Value Reference Range Interpretation Comments MCHC (test code = MCHC) 32.4 32.0-36.0 [place] 325412-07-25 02:20:00 Test Item Value Reference Range Interpretation Comments RDW (test code = RDW) 21.1 11.5-14.5 [place] 325412-07-25 02:20:00 Test Item Value Reference Range Interpretation Comments Platelet (test code = Platelet) 297 133-450 [facility] CampusOoqmuskTAVFTFGBGV7967-09-50 02:20:00 Test Item Value Reference Range Interpretation Comments MPV (test code = MPV) 7.5 7.4-10.4 [place] 325412-07-25 02:20:00 Test Item Value Reference Range Interpretation Comments Segs (test code = Segs) 85.8 45.0-75.0 [facility] CampusTkiixjzIUDBLDPEYC8598-93-01 02:20:00 Test Item Value Reference Range Interpretation Comments Lymphocytes (test code = Lymphocytes) 8.5 20.0-40.0 [facility] CampusYblafbrAFCCLZBXDN0793-98-39 02:20:00 Test Item Value Reference Range Interpretation Comments Monocytes (test code = Monocytes) 5.0 2.0-12.0 [facility] CampusLkpjdlyBTOWUTESUN1856-14-19 02:20:00 Test Item Value Reference Range Interpretation Comments Eosinophils (test code = 0.3 See_Comment [A utomated message] The Eosinophils) system which ge nerated this result tra nsmitted reference range : <=4.0. The reference r hugo was not used to int erpret this result as normal/abnormal . [facility] [id number] 02:20:00 Test Item Value Reference Range Interpretation Comments Basophils (test code = 0.4 See_Comment [Aut omated message] The Basophils) system which ge nerated this result tra nsmitted reference range : <=1.0. The reference r hugo was not used to int erpret this result as normal/abnormal . [facility] CampusO[id number] 02:20:00 Test Item Value Reference Range Interpretation Comments Neutrophils # (test code = Neutrophils 7.4 1.5-8.1 #) [facility] CampusXskmqlzFCZNDLQOVF9786-84-30 02:20:00 Test Item Value Reference Range Interpretation Comments Lymphocytes # (test code = Lymphocytes 0.7 1.0-5.5 #) [facility] CampusWaimfqdETJUXZZMBE2579-09-66 02:20:00 Test Item Value Reference Range Interpretation Comments Monocytes # (test code 0.4 See_Comment [Aut omated message] The = Monocytes #) system which generated this result tra nsmitted reference range : <=0.8. The reference r hugo was not used to int erpret this result as normal/abnormal . [facility] [id number] 02:20:00 Test Item Value Reference Range Interpretation Comments Microcyte (test code = 1+ *ABN*(06/12/22 Microcyte) 9:20 PM) [facility]2022-07-25 02:20:00 Test Item Value Reference Range Interpretation Comments HS Troponin I (test code = HS Troponin 52 I) [place] 480482-07-25 02:20:00 Test Item Value Reference Range Interpretation Comments Glucose Lvl (test code = Glucose Lvl) 103 70-99 [place] 480482-07-25 02:20:00 Test Item Value Reference Range Interpretation Comments BUN (test code = BUN) 22 7-22 [place] 480482-07-25 02:20:00 Test Item Value Reference Range Interpretation Comments Creatinine Lvl (test code = Creatinine 0.90 0.50-1.40 Lvl) [place] 480482-07-25 02:20:00 Test Item Value Reference Range Interpretation Comments Sodium Lvl (test code = Sodium Lvl) 131 135-145 [place] 480482-07-25 02:20:00 Test Item Value Reference Range Interpretation Comments Potassium Lvl (test code = Potassium 4.2 3.5-5.1 Lvl) [place] 480482-07-25 02:20:00 Test Item Value Reference Range Interpretation Comments Chloride Lvl (test code = Chloride Lvl) 97 95-109 [place] 480482-07-25 02:20:00 Test Item Value Reference Range Interpretation Comments CO2 (test code = CO2) 26 24-32 [place] 480482-07-25 02:20:00 Test Item Value Reference Range Interpretation Comments Calcium Lvl (test code = Calcium Lvl) 8.7 8.5-10.5 [place] 480482-07-25 02:20:00 Test Item Value Reference Range Interpretation Comments Total Protein (test code = Total 7.0 6.4-8.4 Protein) [place] 480482-07-25 02:20:00 Test Item Value Reference Range Interpretation Comments Albumin Lvl (test code = Albumin Lvl) 3.4 3.5-5.0 [place] 480482-07-25 02:20:00 Test Item Value Reference Range Interpretation Comments ALT (test code = ALT) 18 See_Comment [Auto mated message] The system which ge nerated this result transmit lavon reference range : <=65. The reference range was not used to interpr et this result as dionne l/abnormal. [place] 480482-07-25 02:20:00 Test Item Value Reference Range Interpretation Comments AST (test code = AST) 27 See_Comment [Auto mated message] The system which ge nerated this result transmit lavon reference range : <=37. The reference range was not used to interpr et this result as dionne l/abnormal. [facility] [id number] 02:20:00 Test Item Value Reference Range Interpretation Comments Alk Phos (test code = Alk Phos) 57 39-136 [facility] [id number] 02:20:00 Test Item Value Reference Range Interpretation Comments Bili Total (test code = Bili Total) 1.0 0.2-1.3 [facility] [id number] 02:20:00 Test Item Value Reference Range Interpretation Comments AGAP (test code = AGAP) 12.2 10.0-20.0 [facility] [id number] 02:20:00 Test Item Value Reference Range Interpretation Comments B/C Ratio (test code = B/C Ratio) 24 1 6-25 [facility] [id number] 02:20:00 Test Item Value Reference Range Interpretation Comments Globulin (test code = Globulin) 3.6 2.7-4.2 [facility] [id number] 02:20:00 Test Item Value Reference Range Interpretation Comments A/G Ratio (test code = A/G Ratio) 0.9 1 0.7-1.6 [facility] [id number] 02:20:00 Test Item Value Reference Range Interpretation Comments eGFR (test code = eGFR) 62 [facility]KsgiowdGDMIQOPNNT8501-20-86 02:20:00 Test Item Value Reference Range Interpretation Comments WBC (test code = WBC) 8.6 3.7-10.4 [place] 325412-07-25 02:20:00 Test Item Value Reference Range Interpretation Comments RBC (test code = RBC) 3.58 4.20-5.40 [place] 325412-07-25 02:20:00 Test Item Value Reference Range Interpretation Comments Hgb (test code = Hgb) 8.8 12.0-16.0 [facility] HospitalPztkimuKZTLOTYSCR6184-14-79 02:20:00 Test Item Value Reference Range Interpretation Comments Hct (test code = Hct) 27.1 36.0-48.0 [facility] CampusVfxfmksCHLZHLOOZO9234-11-84 02:20:00 Test Item Value Reference Range Interpretation Comments MCV (test code = MCV) 75.6 80.0-98.0 [place] 325412-07-25 02:20:00 Test Item Value Reference Range Interpretation Comments MCH (test code = MCH) 24.5 pg 27.0-31.0 [facility] CampusAehsgejWWLMYVIFFP0507-86-24 02:20:00 Test Item Value Reference Range Interpretation Comments MCHC (test code = MCHC) 32.4 32.0-36.0 [place] 325412-07-25 02:20:00 Test Item Value Reference Range Interpretation Comments RDW (test code = RDW) 21.1 11.5-14.5 [place] 325412-07-25 02:20:00 Test Item Value Reference Range Interpretation Comments Platelet (test code = Platelet) 297 133-450 [facility] CampusYwelnvnJKQRMAKXFK5440-13-49 02:20:00 Test Item Value Reference Range Interpretation Comments MPV (test code = MPV) 7.5 7.4-10.4 [place] 325412-07-25 02:20:00 Test Item Value Reference Range Interpretation Comments Segs (test code = Segs) 85.8 45.0-75.0 [place] 325412-07-25 02:20:00 Test Item Value Reference Range Interpretation Comments Lymphocytes (test code = Lymphocytes) 8.5 20.0-40.0 [place] 325412-07-25 02:20:00 Test Item Value Reference Range Interpretation Comments Monocytes (test code = Monocytes) 5.0 2.0-12.0 [place] 325412-07-25 02:20:00 Test Item Value Reference Range Interpretation Comments Eosinophils (test code = 0.3 See_Comment [A utomated message] The Eosinophils) system which ge nerated this result tra nsmitted reference range : <=4.0. The reference r hugo was not used to int erpret this result as normal/abnormal . [place] 325412-07-25 02:20:00 Test Item Value Reference Range Interpretation Comments Basophils (test code = 0.4 See_Comment [Aut omated message] The Basophils) system which ge nerated this result tra nsmitted reference range : <=1.0. The reference r hugo was not used to int erpret this result as normal/abnormal . [facility] [id number] 02:20:00 Test Item Value Reference Range Interpretation Comments Neutrophils # (test code = Neutrophils 7.4 1.5-8.1 #) [facility] CampusMajmrvkWXZXNMNGUQ5701-05-61 02:20:00 Test Item Value Reference Range Interpretation Comments Lymphocytes # (test code = Lymphocytes 0.7 1.0-5.5 #) [facility] CampusKyixcvnADNUQZKJKA8487-38-54 02:20:00 Test Item Value Reference Range Interpretation Comments Monocytes # (test code 0.4 See_Comment [Aut omated message] The = Monocytes #) system which generated this result tra nsmitted reference range : <=0.8. The reference r hugo was not used to int erpret this result as normal/abnormal . [facility] CampusMtvmtsqMVMIIOZQAH2065-60-15 02:20:00 Test Item Value Reference Range Interpretation Comments Microcyte (test code = 1+ *ABN*(06/12/22 Microcyte) 9:20 PM) [facility] [id number] 02:20:00 Test Item Value Reference Range Interpretation Comments HS Troponin I (test code = HS Troponin 52 I) [facility] [id number] 02:20:00 Test Item Value Reference Range Interpretation Comments Glucose Lvl (test code = Glucose Lvl) 103 70-99 [facility]2022-07-25 02:20:00 Test Item Value Reference Range Interpretation Comments BUN (test code = BUN) 22 7-22 [facility]2022-07-25 02:20:00 Test Item Value Reference Range Interpretation Comments Creatinine Lvl (test code = Creatinine 0.90 0.50-1.40 Lvl) [facility] [id number] 02:20:00 Test Item Value Reference Range Interpretation Comments Sodium Lvl (test code = Sodium Lvl) 131 135-145 [facility] [id number] 02:20:00 Test Item Value Reference Range Interpretation Comments Potassium Lvl (test code = Potassium 4.2 3.5-5.1 Lvl) [facility] [id number] 02:20:00 Test Item Value Reference Range Interpretation Comments Chloride Lvl (test code = Chloride Lvl) 97 95-109 [facility]IR[facility]ENTERMIRXV4966-86-34 02:20:00 Test Item Value Reference Range Interpretation Comments CO2 (test code = CO2) 26 24-32 [facility]IRIS.[facility] [id number] 02:20:00 Test Item Value Reference Range Interpretation Comments Calcium Lvl (test code = Calcium Lvl) 8.7 8.5-10.5 [place] 480482-07-25 02:20:00 Test Item Value Reference Range Interpretation Comments Total Protein (test code = Total 7.0 6.4-8.4 Protein) [facility]2022-07-25 02:20:00 Test Item Value Reference Range Interpretation Comments Albumin Lvl (test code = Albumin Lvl) 3.4 3.5-5.0 [place] 480482-07-25 02:20:00 Test Item Value Reference Range Interpretation Comments ALT (test code = ALT) 18 See_Comment [Auto mated message] The system which ge nerated this result transmit lavon reference range : <=65. The reference range was not used to interpr et this result as dionne l/abnormal. [facility] [id number] 02:20:00 Test Item Value Reference Range Interpretation Comments AST (test code = AST) 27 See_Comment [Auto mated message] The system which ge nerated this result transmit lavon reference range : <=37. The reference range was not used to interpr et this result as dionne l/abnormal. [facility] [id number] 02:20:00 Test Item Value Reference Range Interpretation Comments Alk Phos (test code = Alk Phos) 57 39-136 [facility] [id number] 02:20:00 Test Item Value Reference Range Interpretation Comments Bili Total (test code = Bili Total) 1.0 0.2-1.3 [place] 480482-07-25 02:20:00 Test Item Value Reference Range Interpretation Comments AGAP (test code = AGAP) 12.2 10.0-20.0 [facility] [id number] 02:20:00 Test Item Value Reference Range Interpretation Comments B/C Ratio (test code = B/C Ratio) 24 1 6-25 [facility]2022-07-25 02:20:00 Test Item Value Reference Range Interpretation Comments Globulin (test code = Globulin) 3.6 2.7-4.2 [facility] [id number] 02:20:00 Test Item Value Reference Range Interpretation Comments A/G Ratio (test code = A/G Ratio) 0.9 1 0.7-1.6 [facility]2022-07-25 02:20:00 Test Item Value Reference Range Interpretation Comments eGFR (test code = eGFR) 62 [facility] CampusPpewlrlEOICRZAXQF8951-13-36 02:20:00 Test Item Value Reference Range Interpretation Comments WBC (test code = WBC) 8.6 3.7-10.4 [facility] CampusNamugwuITVZQEOKWJ3432-74-31 02:20:00 Test Item Value Reference Range Interpretation Comments RBC (test code = RBC) 3.58 4.20-5.40 [facility] CampusZgpeeplYSOQLGCFIV4049-75-25 02:20:00 Test Item Value Reference Range Interpretation Comments Hgb (test code = Hgb) 8.8 12.0-16.0 [facility] CampusYfbbdtnICXLCBURKV4028-80-01 02:20:00 Test Item Value Reference Range Interpretation Comments Hct (test code = Hct) 27.1 36.0-48.0 [facility] CampusWkjgtmvLEVYQDSFQL1800-40-85 02:20:00 Test Item Value Reference Range Interpretation Comments MCV (test code = MCV) 75.6 80.0-98.0 [facility] CampusXgncnmrQVHAUYJPOM4350-67-35 02:20:00 Test Item Value Reference Range Interpretation Comments MCH (test code = MCH) 24.5 pg 27.0-31.0 [facility] CampusBxpwpxcLBWLHNRTUQ7683-96-49 02:20:00 Test Item Value Reference Range Interpretation Comments MCHC (test code = MCHC) 32.4 32.0-36.0 [place] 325412-07-25 02:20:00 Test Item Value Reference Range Interpretation Comments RDW (test code = RDW) 21.1 11.5-14.5 [place] 325412-07-25 02:20:00 Test Item Value Reference Range Interpretation Comments Platelet (test code = Platelet) 297 133-450 [facility] C[id number] 02:20:00 Test Item Value Reference Range Interpretation Comments MPV (test code = MPV) 7.5 7.4-10.4 [place] 325412-07-25 02:20:00 Test Item Value Reference Range Interpretation Comments Segs (test code = Segs) 85.8 45.0-75.0 [place] 325412-07-25 02:20:00 Test Item Value Reference Range Interpretation Comments Lymphocytes (test code = Lymphocytes) 8.5 20.0-40.0 [place] 325412-07-25 02:20:00 Test Item Value Reference Range Interpretation Comments Monocytes (test code = Monocytes) 5.0 2.0-12.0 [place] 325412-07-25 02:20:00 Test Item Value Reference Range Interpretation Comments Eosinophils (test code = 0.3 See_Comment [A utomated message] The Eosinophils) system which ge nerated this result tra nsmitted reference range : <=4.0. The reference r hguo was not used to int erpret this result as normal/abnormal . [place] 325412-07-25 02:20:00 Test Item Value Reference Range Interpretation Comments Basophils (test code = 0.4 See_Comment [Aut omated message] The Basophils) system which ge nerated this result tra nsmitted reference range : <=1.0. The reference r hugo was not used to int erpret this result as normal/abnormal . [place] 325412-07-25 02:20:00 Test Item Value Reference Range Interpretation Comments Neutrophils # (test code = Neutrophils 7.4 1.5-8.1 #) [place] 325412-07-25 02:20:00 Test Item Value Reference Range Interpretation Comments Lymphocytes # (test code = Lymphocytes 0.7 1.0-5.5 #) [place] [address]-07-25 02:20:00 Test Item Value Reference Range Interpretation Comments Monocytes # (test code 0.4 See_Comment [Aut omated message] The = Monocytes #) system which generated this result tra nsmitted reference range : <=0.8. The reference r hugo was not used to int erpret this result as normal/abnormal . [place] 325412-07-25 02:20:00 Test Item Value Reference Range Interpretation Comments Microcyte (test code = 1+ *ABN*(7/24/22 Microcyte) 9:20 PM) [facility] [id number] 02:20:00 Test Item Value Reference Range Interpretation Comments HS Troponin I (test code = HS Troponin 52 I) [facility] [id number] 02:20:00 Test Item Value Reference Range Interpretation Comments Glucose Lvl (test code = Glucose Lvl) 103 70-99 [facility]2022-07-25 02:20:00 Test Item Value Reference Range Interpretation Comments BUN (test code = BUN) 22 7- [facility]2022-07-25 02:20:00 Test Item Value Reference Range Interpretation Comments Creatinine Lvl (test code = Creatinine 0.90 0.50-1.40 Lvl) [facility]2022-07-25 02:20:00 Test Item Value Reference Range Interpretation Comments Sodium Lvl (test code = Sodium Lvl) 131 135-145 [facility]2022-07-25 02:20:00 Test Item Value Reference Range Interpretation Comments Potassium Lvl (test code = Potassium 4.2 3.5-5.1 Lvl) [facility]2022-07-25 02:20:00 Test Item Value Reference Range Interpretation Comments Chloride Lvl (test code = Chloride Lvl) 97 95-109 [facility]2022-07-25 02:20:00 Test Item Value Reference Range Interpretation Comments CO2 (test code = CO2) 26 24-32 [facility]2022-07-25 02:20:00 Test Item Value Reference Range Interpretation Comments Calcium Lvl (test code = Calcium Lvl) 8.7 8.5-10.5 [facility]2022-07-25 02:20:00 Test Item Value Reference Range Interpretation Comments Total Protein (test code = Total 7.0 6.4-8.4 Protein) [facility]2022-07-25 02:20:00 Test Item Value Reference Range Interpretation Comments Albumin Lvl (test code = Albumin Lvl) 3.4 3.5-5.0 [facility]2022-07-25 02:20:00 Test Item Value Reference Range Interpretation Comments ALT (test code = ALT) 18 See_Comment [Auto mated message] The system which ge nerated this result transmit lavon reference range : <=65. The reference range was not used to interpr et this result as dionne l/abnormal. [place] 480482-07-25 02:20:00 Test Item Value Reference Range Interpretation Comments AST (test code = AST) 27 See_Comment [Auto mated message] The system which ge nerated this result transmit lavon reference range : <=37. The reference range was not used to interpr et this result as dionne l/abnormal. [place] 480482-07-25 02:20:00 Test Item Value Reference Range Interpretation Comments Alk Phos (test code = Alk Phos) 57 39-136 [place] 480482-07-25 02:20:00 Test Item Value Reference Range Interpretation Comments Bili Total (test code = Bili Total) 1.0 0.2-1.3 [place] 480482-07-25 02:20:00 Test Item Value Reference Range Interpretation Comments AGAP (test code = AGAP) 12.2 10.0-20.0 [place] 480482-07-25 02:20:00 Test Item Value Reference Range Interpretation Comments B/C Ratio (test code = B/C Ratio) 24 1 6-25 [place] 480482-07-25 02:20:00 Test Item Value Reference Range Interpretation Comments Globulin (test code = Globulin) 3.6 2.7-4.2 [place] 480482-07-25 02:20:00 Test Item Value Reference Range Interpretation Comments A/G Ratio (test code = A/G Ratio) 0.9 1 0.7-1.6 [place] 480482-07-25 02:20:00 Test Item Value Reference Range Interpretation Comments eGFR (test code = eGFR) 62 [place] 325412-07-25 02:20:00 Test Item Value Reference Range Interpretation Comments WBC (test code = WBC) 8.6 3.7-10.4 [place] 325412-07-25 02:20:00 Test Item Value Reference Range Interpretation Comments RBC (test code = RBC) 3.58 4.20-5.40 [place] 325412-07-25 02:20:00 Test Item Value Reference Range Interpretation Comments Hgb (test code = Hgb) 8.8 12.0-16.0 [place] 325412-07-25 02:20:00 Test Item Value Reference Range Interpretation Comments Hct (test code = Hct) 27.1 36.0-48.0 [place] 325412-07-25 02:20:00 Test Item Value Reference Range Interpretation Comments MCV (test code = MCV) 75.6 80.0-98.0 [place] 325412-07-25 02:20:00 Test Item Value Reference Range Interpretation Comments MCH (test code = MCH) 24.5 pg 27.0-31.0 [place] 325412-07-25 02:20:00 Test Item Value Reference Range Interpretation Comments MCHC (test code = MCHC) 32.4 32.0-36.0 [place] 325412-07-25 02:20:00 Test Item Value Reference Range Interpretation Comments RDW (test code = RDW) 21.1 11.5-14.5 [place] 325412-07-25 02:20:00 Test Item Value Reference Range Interpretation Comments Platelet (test code = Platelet) 297 133-450 [facility] CampusFmagposNJFGQNIRIS3119-04-98 02:20:00 Test Item Value Reference Range Interpretation Comments MPV (test code = MPV) 7.5 7.4-10.4 [place] 325412-07-25 02:20:00 Test Item Value Reference Range Interpretation Comments Segs (test code = Segs) 85.8 45.0-75.0 [place] 325412-07-25 02:20:00 Test Item Value Reference Range Interpretation Comments Lymphocytes (test code = Lymphocytes) 8.5 20.0-40.0 [place] 325412-07-25 02:20:00 Test Item Value Reference Range Interpretation Comments Monocytes (test code = Monocytes) 5.0 2.0-12.0 [place] 325412-07-25 02:20:00 Test Item Value Reference Range Interpretation Comments Eosinophils (test code = 0.3 See_Comment [A utomated message] The Eosinophils) system which ge nerated this result tra nsmitted reference range : <=4.0. The reference r hugo was not used to int erpret this result as normal/abnormal . [place] 325412-07-25 02:20:00 Test Item Value Reference Range Interpretation Comments Basophils (test code = 0.4 See_Comment [Aut omated message] The Basophils) system which ge nerated this result tra nsmitted reference range : <=1.0. The reference r hugo was not used to int erpret this result as normal/abnormal . [facility] C[id number] 02:20:00 Test Item Value Reference Range Interpretation Comments Neutrophils # (test code = Neutrophils 7.4 1.5-8.1 #) [facility] CampusCymtzedHXQHYJFHAX9302-03-05 02:20:00 Test Item Value Reference Range Interpretation Comments Lymphocytes # (test code = Lymphocytes 0.7 1.0-5.5 #) [facility] CampusEbsfwdwWXUDUGSPSK2827-44-97 02:20:00 Test Item Value Reference Range Interpretation Comments Monocytes # (test code 0.4 See_Comment [Aut omated message] The = Monocytes #) system which generated this result tra nsmitted reference range : <=0.8. The reference r hugo was not used to int erpret this result as normal/abnormal . [facility] CampusNyfhohyTJBEUDLRVW9261-75-40 02:20:00 Test Item Value Reference Range Interpretation Comments Microcyte (test code = 1+ *ABN*(06/12/22 Microcyte) 9:20 PM) [facility] [id number] 02:20:00 Test Item Value Reference Range Interpretation Comments HS Troponin I (test code = HS Troponin 52 I) [facility] [id number] 02:20:00 Test Item Value Reference Range Interpretation Comments Glucose Lvl (test code = Glucose Lvl) 103 70-99 [facility] [id number] 02:20:00 Test Item Value Reference Range Interpretation Comments BUN (test code = BUN) 22 7-22 [facility] [id number] 02:20:00 Test Item Value Reference Range Interpretation Comments Creatinine Lvl (test code = Creatinine 0.90 0.50-1.40 Lvl) [facility]2022-07-25 02:20:00 Test Item Value Reference Range Interpretation Comments Sodium Lvl (test code = Sodium Lvl) 131 135-145 [facility] [id number] 02:20:00 Test Item Value Reference Range Interpretation Comments Potassium Lvl (test code = Potassium 4.2 3.5-5.1 Lvl) [facility] [facility] [id number] 02:20:00 Test Item Value Reference Range Interpretation Comments Chloride Lvl (test code = Chloride Lvl) 97 95-109 [place] 480482-07-25 02:20:00 Test Item Value Reference Range Interpretation Comments CO2 (test code = CO2) 26 24-32 [place] 480482-07-25 02:20:00 Test Item Value Reference Range Interpretation Comments Calcium Lvl (test code = Calcium Lvl) 8.7 8.5-10.5 [facility] [id number] 02:20:00 Test Item Value Reference Range Interpretation Comments Total Protein (test code = Total 7.0 6.4-8.4 Protein) [place] 480482-07-25 02:20:00 Test Item Value Reference Range Interpretation Comments Albumin Lvl (test code = Albumin Lvl) 3.4 3.5-5.0 [facility] [id number] 02:20:00 Test Item Value Reference Range Interpretation Comments ALT (test code = ALT) 18 See_Comment [Auto mated message] The system which ge nerated this result transmit lavon reference range : <=65. The reference range was not used to interpr et this result as dionne l/abnormal. [facility] [id number] 02:20:00 Test Item Value Reference Range Interpretation Comments AST (test code = AST) 27 See_Comment [Auto mated message] The system which ge nerated this result transmit lavon reference range : <=37. The reference range was not used to interpr et this result as dionne l/abnormal. [facility] [id number] 02:20:00 Test Item Value Reference Range Interpretation Comments Alk Phos (test code = Alk Phos) 57 39-136 [facility] [id number] 02:20:00 Test Item Value Reference Range Interpretation Comments Bili Total (test code = Bili Total) 1.0 0.2-1.3 [facility] [id number] 02:20:00 Test Item Value Reference Range Interpretation Comments AGAP (test code = AGAP) 12.2 10.0-20.0 [place] 480482-07-25 02:20:00 Test Item Value Reference Range Interpretation Comments B/C Ratio (test code = B/C Ratio) 24 1 6-25 [place] 480482-07-25 02:20:00 Test Item Value Reference Range Interpretation Comments Globulin (test code = Globulin) 3.6 2.7-4.2 [place] 480482-07-25 02:20:00 Test Item Value Reference Range Interpretation Comments A/G Ratio (test code = A/G Ratio) 0.9 1 0.7-1.6 [place] 480482-07-25 02:20:00 Test Item Value Reference Range Interpretation Comments eGFR (test code = eGFR) 62 [place] 325412-07-25 02:20:00 Test Item Value Reference Range Interpretation Comments WBC (test code = WBC) 8.6 3.7-10.4 [place] 325412-07-25 02:20:00 Test Item Value Reference Range Interpretation Comments RBC (test code = RBC) 3.58 4.20-5.40 [place] 325412-07-25 02:20:00 Test Item Value Reference Range Interpretation Comments Hgb (test code = Hgb) 8.8 12.0-16.0 [place] 325412-07-25 02:20:00 Test Item Value Reference Range Interpretation Comments Hct (test code = Hct) 27.1 36.0-48.0 [place] 325412-07-25 02:20:00 Test Item Value Reference Range Interpretation Comments MCV (test code = MCV) 75.6 80.0-98.0 [place] 325412-07-25 02:20:00 Test Item Value Reference Range Interpretation Comments MCH (test code = MCH) 24.5 pg 27.0-31.0 [place] 325412-07-25 02:20:00 Test Item Value Reference Range Interpretation Comments MCHC (test code = MCHC) 32.4 32.0-36.0 [place] 325412-07-25 02:20:00 Test Item Value Reference Range Interpretation Comments RDW (test code = RDW) 21.1 11.5-14.5 [place] 325412-07-25 02:20:00 Test Item Value Reference Range Interpretation Comments Platelet (test code = Platelet) 297 133-450 [facility] CampusRigsfphWUCBPUUKPM8762-94-27 02:20:00 Test Item Value Reference Range Interpretation Comments MPV (test code = MPV) 7.5 7.4-10.4 [place] 325412-07-25 02:20:00 Test Item Value Reference Range Interpretation Comments Segs (test code = Segs) 85.8 45.0-75.0 [place] 325412-07-25 02:20:00 Test Item Value Reference Range Interpretation Comments Lymphocytes (test code = Lymphocytes) 8.5 20.0-40.0 [place] 325412-07-25 02:20:00 Test Item Value Reference Range Interpretation Comments Monocytes (test code = Monocytes) 5.0 2.0-12.0 [place] 325412-07-25 02:20:00 Test Item Value Reference Range Interpretation Comments Eosinophils (test code = 0.3 See_Comment [A utomated message] The Eosinophils) system which ge nerated this result tra nsmitted reference range : <=4.0. The reference r hugo was not used to int erpret this result as normal/abnormal . [place] 325412-07-25 02:20:00 Test Item Value Reference Range Interpretation Comments Basophils (test code = 0.4 See_Comment [Aut omated message] The Basophils) system which ge nerated this result tra nsmitted reference range : <=1.0. The reference r hugo was not used to int erpret this result as normal/abnormal . [facility] [id number] 02:20:00 Test Item Value Reference Range Interpretation Comments Neutrophils # (test code = Neutrophils 7.4 1.5-8.1 #) [place] 325412-07-25 02:20:00 Test Item Value Reference Range Interpretation Comments Lymphocytes # (test code = Lymphocytes 0.7 1.0-5.5 #) [place] 325412-07-25 02:20:00 Test Item Value Reference Range Interpretation Comments Monocytes # (test code 0.4 See_Comment [Aut omated message] The = Monocytes #) system which generated this result tra nsmitted reference range : <=0.8. The reference r hugo was not used to int erpret this result as normal/abnormal . [facility] Hos[id number] 02:20:00 Test Item Value Reference Range Interpretation Comments Microcyte (test code = 1+ *ABN*(06/12/22 Microcyte) 9:20 PM) [facility] [id number] 02:20:00 Test Item Value Reference Range Interpretation Comments HS Troponin I (test code = HS Troponin 52 I) [facility] [id number] 02:20:00 Test Item Value Reference Range Interpretation Comments Glucose Lvl (test code = Glucose Lvl) 103 70-99 [facility]2022-07-25 02:20:00 Test Item Value Reference Range Interpretation Comments BUN (test code = BUN) 22 06-10 [facility]2022-07-25 02:20:00 Test Item Value Reference Range Interpretation Comments Creatinine Lvl (test code = Creatinine 0.90 0.50-1.40 Lvl) [facility]2022-07-25 02:20:00 Test Item Value Reference Range Interpretation Comments Sodium Lvl (test code = Sodium Lvl) 131 135-145 [facility]2022-07-25 02:20:00 Test Item Value Reference Range Interpretation Comments Potassium Lvl (test code = Potassium 4.2 3.5-5.1 Lvl) [facility]2022-07-25 02:20:00 Test Item Value Reference Range Interpretation Comments Chloride Lvl (test code = Chloride Lvl) 97 95-109 [facility]2022-07-25 02:20:00 Test Item Value Reference Range Interpretation Comments CO2 (test code = CO2) 24-32 [facility]2022-07-25 02:20:00 Test Item Value Reference Range Interpretation Comments Calcium Lvl (test code = Calcium Lvl) 8.7 8.5-10.5 [facility]2022-07-25 02:20:00 Test Item Value Reference Range Interpretation Comments Total Protein (test code = Total 7.0 6.4-8.4 Protein) [facility]2022-07-25 02:20:00 Test Item Value Reference Range Interpretation Comments Albumin Lvl (test code = Albumin Lvl) 3.4 3.5-5.0 [facility]2022-07-25 02:20:00 Test Item Value Reference Range Interpretation Comments ALT (test code = ALT) 18 See_Comment [Auto mated message] The system which ge nerated this result transmit lavon reference range : <=65. The reference range was not used to interpr et this result as dionne l/abnormal. [facility] [id number] 02:20:00 Test Item Value Reference Range Interpretation Comments AST (test code = AST) 27 See_Comment [Auto mated message] The system which ge nerated this result transmit lavon reference range : <=37. The reference range was not used to interpr et this result as dionne l/abnormal. [facility] [employer] [id number] 02:20:00 Test Item Value Reference Range Interpretation Comments Alk Phos (test code = Alk Phos) 57 39-136 [facility] [id number] 02:20:00 Test Item Value Reference Range Interpretation Comments Bili Total (test code = Bili Total) 1.0 0.2-1.3 [facility] [id number] 02:20:00 Test Item Value Reference Range Interpretation Comments AGAP (test code = AGAP) 12.2 10.0-20.0 [facility] [id number] 02:20:00 Test Item Value Reference Range Interpretation Comments B/C Ratio (test code = B/C Ratio) 24 1 6-25 [facility] [id number] 02:20:00 Test Item Value Reference Range Interpretation Comments Globulin (test code = Globulin) 3.6 2.7-4.2 [facility] [id number] 02:20:00 Test Item Value Reference Range Interpretation Comments A/G Ratio (test code = A/G Ratio) 0.9 1 0.7-1.6 [facility] [id number] 02:20:00 Test Item Value Reference Range Interpretation Comments eGFR (test code = eGFR) 62 [facility] CenterDuwyherOZAWCDERAC1713-08-49 02:20:00 Test Item Value Reference Range Interpretation Comments WBC (test code = WBC) 8.6 3.7-10.4 [facility] CenterAuagqmoGWFFJKGMCU0121-87-26 02:20:00 Test Item Value Reference Range Interpretation Comments RBC (test code = RBC) 3.58 4.20-5.40 [facility] CampusWibkautMQMKRLHIQR5405-91-08 02:20:00 Test Item Value Reference Range Interpretation Comments Hgb (test code = Hgb) 8.8 12.0-16.0 [facility] [id number] 02:20:00 Test Item Value Reference Range Interpretation Comments Hct (test code = Hct) 27.1 36.0-48.0 [facility] CampusJidxtnaFFSYXFLEIH3530-59-57 02:20:00 Test Item Value Reference Range Interpretation Comments MCV (test code = MCV) 75.6 80.0-98.0 [facility] CampusRhonfdvNBOVRADRBF8488-17-00 02:20:00 Test Item Value Reference Range Interpretation Comments MCH (test code = MCH) 24.5 pg 27.0-31.0 [facility] C[id number] 02:20:00 Test Item Value Reference Range Interpretation Comments MCHC (test code = MCHC) 32.4 32.0-36.0 [facility] C[id number] 02:20:00 Test Item Value Reference Range Interpretation Comments RDW (test code = RDW) 21.1 11.5-14.5 [facility] CampusEexsutlCOFTPHEOUI2136-25-03 02:20:00 Test Item Value Reference Range Interpretation Comments Platelet (test code = Platelet) 297 133-450 [facility] CampusYkqtpsyTCMJOPLGTV5661-22-58 02:20:00 Test Item Value Reference Range Interpretation Comments MPV (test code = MPV) 7.5 7.4-10.4 [place] 325412-07-25 02:20:00 Test Item Value Reference Range Interpretation Comments Segs (test code = Segs) 85.8 45.0-75.0 [facility] CampusXjhftmbNNBZDPGYAF3206-68-40 02:20:00 Test Item Value Reference Range Interpretation Comments Lymphocytes (test code = Lymphocytes) 8.5 20.0-40.0 [place] 325412-07-25 02:20:00 Test Item Value Reference Range Interpretation Comments Monocytes (test code = Monocytes) 5.0 2.0-12.0 [facility] [id number] 02:20:00 Test Item Value Reference Range Interpretation Comments Eosinophils (test code = 0.3 See_Comment [A utomated message] The Eosinophils) system which ge nerated this result tra nsmitted reference range : <=4.0. The reference r hugo was not used to int erpret this result as normal/abnormal . [facility] Hospit[id number] 02:20:00 Test Item Value Reference Range Interpretation Comments Basophils (test code = 0.4 See_Comment [Aut omated message] The Basophils) system which ge nerated this result tra nsmitted reference range : <=1.0. The reference r hugo was not used to int erpret this result as normal/abnormal . [facility] Hospit[id number] 02:20:00 Test Item Value Reference Range Interpretation Comments Neutrophils # (test code = Neutrophils 7.4 1.5-8.1 #) [facility] CampusMhoywisRMNIMELWKQ9841-08-36 02:20:00 Test Item Value Reference Range Interpretation Comments Lymphocytes # (test code = Lymphocytes 0.7 1.0-5.5 #) [facility] CampusNhlsbqaWOLSQZQFSB4389-60-50 02:20:00 Test Item Value Reference Range Interpretation Comments Monocytes # (test code 0.4 See_Comment [Aut omated message] The = Monocytes #) system which generated this result tra nsmitted reference range : <=0.8. The reference r hugo was not used to int erpret this result as normal/abnormal . [facility] CampusKbpkiwzRNLWRAFZAP9005-87-28 02:20:00 Test Item Value Reference Range Interpretation Comments Microcyte (test code = 1+ *ABN*(06/12/22 Microcyte) 9:20 PM) [facility]CARDIAC [id number] 02:20:00 Test Item Value Reference Range Interpretation Comments HS Troponin I (test code = HS Troponin 52 I) [facility] [id number] 02:20:00 Test Item Value Reference Range Interpretation Comments Glucose Lvl (test code = Glucose Lvl) 103 70-99 [facility] [id number] 02:20:00 Test Item Value Reference Range Interpretation Comments BUN (test code = BUN) 22 7- [facility] HospitalLiquidTalk [id number] 02:20:00 Test Item Value Reference Range Interpretation Comments Creatinine Lvl (test code = Creatinine 0.90 0.50-1.40 Lvl) [facility] [id number] 02:20:00 Test Item Value Reference Range Interpretation Comments Sodium Lvl (test code = Sodium Lvl) 131 135-145 [facility] [id number] 02:20:00 Test Item Value Reference Range Interpretation Comments Potassium Lvl (test code = Potassium 4.2 3.5-5.1 Lvl) [facility]2022-07-25 02:20:00 Test Item Value Reference Range Interpretation Comments Chloride Lvl (test code = Chloride Lvl) 97 95-109 [facility] [id number] 02:20:00 Test Item Value Reference Range Interpretation Comments CO2 (test code = CO2) 26 24-32 [id number] 02:20:00 Test Item Value Reference Range Interpretation Comments Calcium Lvl (test code = Calcium Lvl) 8.7 8.5-10.5 [facility] [id number] 02:20:00 Test Item Value Reference Range Interpretation Comments Total Protein (test code = Total 7.0 6.4-8.4 Protein) [facility] [id number] 02:20:00 Test Item Value Reference Range Interpretation Comments Albumin Lvl (test code = Albumin Lvl) 3.4 3.5-5.0 [facility] [id number] 02:20:00 Test Item Value Reference Range Interpretation Comments ALT (test code = ALT) 18 See_Comment [Auto mated message] The system which ge nerated this result transmit lavon reference range : <=65. The reference range was not used to interpr et this result as dionne l/abnormal. [facility] [id number] 02:20:00 Test Item Value Reference Range Interpretation Comments AST (test code = AST) 27 See_Comment [Auto mated message] The system which ge nerated this result transmit lavon reference range : <=37. The reference range was not used to interpr et this result as dionne l/abnormal. [facility] [id number] 02:20:00 Test Item Value Reference Range Interpretation Comments Alk Phos (test code = Alk Phos) 57 39-136 [facility] [id number] 02:20:00 Test Item Value Reference Range Interpretation Comments Bili Total (test code = Bili Total) 1.0 0.2-1.3 [place] 480482-07-25 02:20:00 Test Item Value Reference Range Interpretation Comments AGAP (test code = AGAP) 12.2 10.0-20.0 [place] 480482-07-25 02:20:00 Test Item Value Reference Range Interpretation Comments B/C Ratio (test code = B/C Ratio) 24 1 6-25 [place] 480482-07-25 02:20:00 Test Item Value Reference Range Interpretation Comments Globulin (test code = Globulin) 3.6 2.7-4.2 [place] 480482-07-25 02:20:00 Test Item Value Reference Range Interpretation Comments A/G Ratio (test code = A/G Ratio) 0.9 1 0.7-1.6 [place] 480482-07-25 02:20:00 Test Item Value Reference Range Interpretation Comments eGFR (test code = eGFR) 62 [place] 325412-07-25 02:20:00 Test Item Value Reference Range Interpretation Comments WBC (test code = WBC) 8.6 3.7-10.4 [place] 325412-07-25 02:20:00 Test Item Value Reference Range Interpretation Comments RBC (test code = RBC) 3.58 4.20-5.40 [place] 325412-07-25 02:20:00 Test Item Value Reference Range Interpretation Comments Hgb (test code = Hgb) 8.8 12.0-16.0 [place] 325412-07-25 02:20:00 Test Item Value Reference Range Interpretation Comments Hct (test code = Hct) 27.1 36.0-48.0 [place] 325412-07-25 02:20:00 Test Item Value Reference Range Interpretation Comments MCV (test code = MCV) 75.6 80.0-98.0 [place] 325412-07-25 02:20:00 Test Item Value Reference Range Interpretation Comments MCH (test code = MCH) 24.5 pg 27.0-31.0 [place] 325412-07-25 02:20:00 Test Item Value Reference Range Interpretation Comments MCHC (test code = MCHC) 32.4 32.0-36.0 [place] 325412-07-25 02:20:00 Test Item Value Reference Range Interpretation Comments RDW (test code = RDW) 21.1 11.5-14.5 [place] 325412-07-25 02:20:00 Test Item Value Reference Range Interpretation Comments Platelet (test code = Platelet) 297 133-450 [place] 325412-07-25 02:20:00 Test Item Value Reference Range Interpretation Comments MPV (test code = MPV) 7.5 7.4-10.4 [place] 325412-07-25 02:20:00 Test Item Value Reference Range Interpretation Comments Segs (test code = Segs) 85.8 45.0-75.0 [place] 325412-07-25 02:20:00 Test Item Value Reference Range Interpretation Comments Lymphocytes (test code = Lymphocytes) 8.5 20.0-40.0 [place] 325412-07-25 02:20:00 Test Item Value Reference Range Interpretation Comments Monocytes (test code = Monocytes) 5.0 2.0-12.0 [place] 325412-07-25 02:20:00 Test Item Value Reference Range Interpretation Comments Eosinophils (test code = 0.3 See_Comment [A utomated message] The Eosinophils) system which ge nerated this result tra nsmitted reference range : <=4.0. The reference r hugo was not used to int erpret this result as normal/abnormal . [place] 325412-07-25 02:20:00 Test Item Value Reference Range Interpretation Comments Basophils (test code = 0.4 See_Comment [Aut omated message] The Basophils) system which ge nerated this result tra nsmitted reference range : <=1.0. The reference r hugo was not used to int erpret this result as normal/abnormal . [place] 325412-07-25 02:20:00 Test Item Value Reference Range Interpretation Comments Neutrophils # (test code = Neutrophils 7.4 1.5-8.1 #) [place] 325412-07-25 02:20:00 Test Item Value Reference Range Interpretation Comments Lymphocytes # (test code = Lymphocytes 0.7 1.0-5.5 #) [place] 325412-07-25 02:20:00 Test Item Value Reference Range Interpretation Comments Monocytes # (test code 0.4 See_Comment [Aut omated message] The = Monocytes #) system which generated this result tra nsmitted reference range : <=0.8. The reference r hugo was not used to int erpret this result as normal/abnormal . [facility] HospitalOmvunagGJKGTLCYLF1446-03-37 02:20:00 Test Item Value Reference Range Interpretation Comments Microcyte (test code = 1+ *ABN*(06/12/22 Microcyte) 9:20 PM) [facility] [id number] 02:20:00 Test Item Value Reference Range Interpretation Comments HS Troponin I (test code = HS Troponin 52 I) [facility] [id number] 02:20:00 Test Item Value Reference Range Interpretation Comments Glucose Lvl (test code = Glucose Lvl) 103 70-99 [facility]2022-07-25 02:20:00 Test Item Value Reference Range Interpretation Comments BUN (test code = BUN) 22 7-22 [facility]2022-07-25 02:20:00 Test Item Value Reference Range Interpretation Comments Creatinine Lvl (test code = Creatinine 0.90 0.50-1.40 Lvl) [facility] [id number] 02:20:00 Test Item Value Reference Range Interpretation Comments Sodium Lvl (test code = Sodium Lvl) 131 135-145 [facility]2022-07-25 02:20:00 Test Item Value Reference Range Interpretation Comments Potassium Lvl (test code = Potassium 4.2 3.5-5.1 Lvl) [facility]2022-07-25 02:20:00 Test Item Value Reference Range Interpretation Comments Chloride Lvl (test code = Chloride Lvl) 97 95-109 [facility]2022-07-25 02:20:00 Test Item Value Reference Range Interpretation Comments CO2 (test code = CO2) 26 24-32 [facility] [id number] 02:20:00 Test Item Value Reference Range Interpretation Comments Calcium Lvl (test code = Calcium Lvl) 8.7 8.5-10.5 [facility]2022-07-25 02:20:00 Test Item Value Reference Range Interpretation Comments Total Protein (test code = Total 7.0 6.4-8.4 Protein) [facility]2022-07-25 02:20:00 Test Item Value Reference Range Interpretation Comments Albumin Lvl (test code = Albumin Lvl) 3.4 3.5-5.0 [place] 480482-07-25 02:20:00 Test Item Value Reference Range Interpretation Comments ALT (test code = ALT) 18 See_Comment [Auto mated message] The system which ge nerated this result transmit lavon reference range : <=65. The reference range was not used to interpr et this result as dionne l/abnormal. [place] 480482-07-25 02:20:00 Test Item Value Reference Range Interpretation Comments AST (test code = AST) 27 See_Comment [Auto mated message] The system which ge nerated this result transmit lavon reference range : <=37. The reference range was not used to interpr et this result as dionne l/abnormal. [place] 480482-07-25 02:20:00 Test Item Value Reference Range Interpretation Comments Alk Phos (test code = Alk Phos) 57 39-136 [place] 480482-07-25 02:20:00 Test Item Value Reference Range Interpretation Comments Bili Total (test code = Bili Total) 1.0 0.2-1.3 [place] 480482-07-25 02:20:00 Test Item Value Reference Range Interpretation Comments AGAP (test code = AGAP) 12.2 10.0-20.0 [place] 480482-07-25 02:20:00 Test Item Value Reference Range Interpretation Comments B/C Ratio (test code = B/C Ratio) 24 1 6-25 [place] 480482-07-25 02:20:00 Test Item Value Reference Range Interpretation Comments Globulin (test code = Globulin) 3.6 2.7-4.2 [place] 480482-07-25 02:20:00 Test Item Value Reference Range Interpretation Comments A/G Ratio (test code = A/G Ratio) 0.9 1 0.7-1.6 [place] 24489-07-25 02:20:00 Test Item Value Reference Range Interpretation Comments eGFR (test code = eGFR) 62 [facility] CampusDxjowicTKCUXVCLUO6226-48-68 02:20:00 Test Item Value Reference Range Interpretation Comments WBC (test code = WBC) 8.6 3.7-10.4 [facility] CampusTmskfusFTJFSBDUVW2773-99-59 02:20:00 Test Item Value Reference Range Interpretation Comments RBC (test code = RBC) 3.58 4.20-5.40 [facility] CampusHpjwjjyVQIYRUSLWF4871-96-23 02:20:00 Test Item Value Reference Range Interpretation Comments Hgb (test code = Hgb) 8.8 12.0-16.0 [facility] CampusPsyzrqfKDVTGRCGYA7675-20-57 02:20:00 Test Item Value Reference Range Interpretation Comments Hct (test code = Hct) 27.1 36.0-48.0 [facility] CampusVunzjpeTDECYZKYGJ2683-97-24 02:20:00 Test Item Value Reference Range Interpretation Comments MCV (test code = MCV) 75.6 80.0-98.0 [facility]IrqiagwVEQUFQTD8604-27-63 11:14:00 Test Item Value Reference Range Interpretation Comments SURGICAL (test code = SR) R UN DATE: 06/01/22 [facility] PAGE 1 RUN TIME: 1114 Specimen Inquiry RUN USER: INTERFACE P ATIENT: KELLY SLOAN LOC: GDarnellCVN1 U #: [id number] AGE/SX: 87/F [place] [facility] [place]05/20/22REG DR: Frank Putnam MD : 35 BED: 1 DIS: 05/26/22 STATUS: DIS IN TLOC: SPEC #: [id number] RECD: 05/28/22 STATUS: MALOU EDOUARD #: [id number] FLORES: 05/25/22- SUBM DR: Frank Putnam MD ENTERED: 05/28/22 SP TYPE: SURGICAL OTHR DR: Lizeth Morales MD, Nehme X MD Chaugle, Abdul Hannan MD Lee, Gabriel MD Mahmood, Khalid MD Tharani, Shamshad NPORDERED: 71860, 30385, IHC ADD 40445/7, 65508-24, ANATOMIC SPEC COPIES TO: Lizeth Morales MD [address] [place] [address] John Alberto MD [address] [place] [address] Marcellus De La Garza MD [address] [facility] [place] [address] Camron Fonseca MD [address] [facility] [place] [address] Kyler Longoria MD [address] [place] [address] Frank Putnam MD [address] [facility] [address] [place] [address] Ofelia Syed MEDICAL CODING MANAGER [address] [place] [address] CONTINUED ON NEXT PAGE R UN DATE: 06/01/22 [facility] - LAB PAGE 2 RUN TIME: 1114 Specimen Inquiry RUN USER: INTERFACE S PEC #: [id number] PATIENT: KELLY SLOAN #[id number] (Continued) PROCEDURES: 72102 (05/28/22-1416) 16648 (06/01/22-1001) IHC ADD 93434 (06/01/22) 88185-89 (06/01/22) TISSUES: A. PERITONEUM BIOPSY - NODULE, [...] submitted in 1cassette. Technical component performed at [facility],[address] [place] [address], [place] [address] Unless gross only, the diagnosis is based [...] CK20 and calretinin. Inhibin immunohistochemical stainperformed at [facility] and interpreted at [facility] is negative in the tumor cells. CONTINUED ON NEXT PAGE R UN DATE: 06/01/22 [facility] PAGE 3 RUN TIME: 1114 Specimen Inquiry RUN USER: INTERFACE S PEC #: [id number] PATIENT: KELLY SLOAN #[id number] (Continued) CLINICAL INFORMATION PERITONAL NODULE ----- Signed _ CynthiaDav T 06/01/22 1114 END OF REPORT [id number] 10:45:00 Test Item Value Reference Range Interpretation Comments MAGNESIUM (test code = MAG) 1.65 mg/dL 1.80-2.40 L CBC W/AUTO [id number] 08:08:00 Test Item Value Reference Range Interpretation [...] (test code NO = MDIFF) BASIC METABOLIC [id number] 07:29:00 Test Item Value Reference Range Interpretation [...] = 8.9 mg/dL 8.0-10.5 N CA) PROTHROMBIN [id number] 06:41:00 Test Item Value Reference Range Interpretation [...] prevent systemic emboli sm), Valvular heart disease, Atria l Fibrillation, Bileaflet mecha nical valve in aortic position.2. Mec hanical prosthetic valv es (high risk), 2. 5 - 3.5 Presence of Lup us Anticoagulant o r Antiphospholipi d Antibodies, Pre vention of systemic emb olism - Acute Myocardia l Infarction (to prevent recurrent infar ct). COVID 19 Asymptomatic IH [id number] 04:50:00 Test Item Value Reference Range Interpretation [...] waivedcomplexit y tests. COMMENTS: PRE ENDO- [facility] (Biopsy/Asp)2022-05-25 00:00:00 [facility] 1935 Sex: F Name: KELLY SLOAN [facility] : 1935 Age/S: 87 / F [address] [place] [address] Blvd Unit #: [id number] Loc: [place] [address] Phys: Jamshid Chang MD Acct: [id number] Dis Date: Status: ADM IN PHONE #: [phone] Exam Date: 05/25/2022 1313 FAX #: [phone] Reason: peritoneal mets- etiology? EXAMS: CPT CODE: [id number] [facility] (Biopsy/Asp) 01514 PROCEDURE INFORMATION: Exam: IR Biopsy, abdominal or [...] peritoneal mass 2. Moderate Sedation CONSENT: The procedure,risks, benefits, and alternatives were discussed and informed [...] the end of the procedure and sterile dressingsapplied. Postprocedure imaging demonstrated no immediate complication. The patient was stable throughout the procedure. IMPRESSION: Successful CT-guided biopsy of peritoneal mass. PAGE 1 Signed Report(CONTINUED) Name: KELLY SLOAN [facility] : 1935 Age/S: 87 / F [address] [place] [address] Unit #: [id number] Loc: [place] [address] Phys: Jamshid Chang MD Acct: [id number] Dis Date: Status: ADM IN PHONE #: [phone] Exam Date: 05/25/2022 1313 FAX #: [phone] Reason: peritoneal mets- etiology? EXAMS: CPT CODE: [id number] CT GUID N[facility] (Biopsy/Asp) 23556 (Continued) at 1501 Reported and signed by: Aure Munroe D.O. CC: Jamshid Chang MD; Frank Putnam MD Technologist:RT Tiffany(R)(CT) CTDI: DLP: Trnscb Date/Time: 05/25/2022 (1500) [email or web address] Orig Print D/T: S: 05/25/2022 (7701) PAGE 2 Signed ReportPROTEIN ELECTROPHORESIS [id number] 17:08:00 Test Item Value Reference Range Interpretation Comments TOTAL PROTEIN 5.7 g/dL 6.0-8.5 L (test code = PROTE) ALBUMIN (test 3.1 g/dL 2.9-4.4 code = ALBE) [id number]-4-FCNSMOSB 0.3 g/dL 0.0-0.4 (test code = A1G) ZHFJW-5-GERTGKTJ 0.6 g/dL 0.4-1.0 (test code = A2G) [...] pr otein is not apparent.Perfor med At: [facility] [address] [place], [place] [id number] Willis Lovett MD Ph:[phone] rform ed At: [facility] [address] [place], [place] [id number] tim TAVERA MD Ph:[phone] [Automated mess age] The system [employer] generated this result transmit lavon reference range : (). The reference r hugo was not used to interpret this result as normal/abnormal . LACTIC DEHYDROGENASE(LDH)2022-05-24 17:08:00 Test Item Value Reference Range Interpretation Comments LACTIC DEHYDROGENASE(LDH) (test 233 IUnits/L 84-246 N code = LDH) TOTAL IRON BINDING [id number] 17:08:00 Test Item Value Reference Range Interpretation Comments SERUM IRON (test code = IRON) 88 mcg/dL 35-150 N TOTAL IRON BINDING CAPACITY (test 382 mcg/dL 260-445 N code = TIBC) UIBC (test code = UIBC) 294 mcg/dL IRON SATURATION (test code = 23.0 % 14-34 N FESAT) VITAMIN [id number] 17:08:00 Test Item Value Reference Range Interpretation Comments VITAMIN B12 (test code = VITB12) 262 pg/mL 193-986 N FOLIC [id number] 17:08:00 Test Item Value Reference Range Interpretation Comments FOLIC ACID (test code = FOL) 11.3 ng/mL 3.1-17.5 N AG [id number] 17:08:00 Test Item Value Reference Range Interpretation Comments AG CARCINOEMBRYONIC (test code = 0.1 NG/ML 0.0-5.0 N CEA) [place] [id number] 17:08:00 Test Item Value Reference Range Interpretation Comments CA 125 (test 115.0 U/mL 0.0-38.1 A Greta Diagnosti cs code = Electrochemilum inescence CA125) Immunoassay(ECL IA)Values obtained with d ifferent assay methods or kits cannotbe used interchangeably . Results cannot be interpreted asabsolute evidence of the presence or absence of fei gnantdisease. CA27-29, [id number] 17:08:00 Test Item Value Reference Range Interpretation Comments CA27-29, 22.1 U/mL 0.0-38.6 [employer] BIOMIRA (test Immunochemilum inometric code = LG3944) Methodology ( ICMA)Values obtained with d ifferent assay methods or kits cannotbe used interchangeably . Results cannot be inter preted asabsolute evid ence of the presence or abs ence of malignantdiseas e.Performed At: [facility] [[email or web address] [address] [place], [place] [id number] Willis Lovett MD Ph:[phone] BASIC METABOLIC [id number] 04:47:00 Test Item Value Reference Range Interpretation [...] code = 7.8 mg/dL 8.0-10.5 L CA) [id number] 04:47:00 Test Item Value Reference Range Interpretation Comments MAGNESIUM (test code = MAG) 1.80 mg/dL 1.80-2.40 N CBC W/AUTO [id number] 04:37:00 Test Item Value Reference Range Interpretation [...] DIFF REQUIRED (test code NO = MDIFF) [id number] 17:11:00 Test Item Value Reference Range Interpretation Comments HAPTOGLOBIN (test code 137 mg/dL 41-333 Perfo rmed At: DA = HAPT) [facility] [address] [place], [place] [id number] h CN Ph:[phone] BASIC METABOLIC [id number] 04:10:00 Test Item Value Reference Range Interpretation [...] code = 8.1 mg/dL 8.0-10.5 N CA) [id number] 04:10:00 Test Item Value Reference Range Interpretation Comments MAGNESIUM (test code = MAG) 1.92 mg/dL 1.80-2.40 N CBC W/AUTO [id number] 03:56:00 Test Item Value Reference Range Interpretation [...] (test code = LDL) NEAR OPTIM AL/ABOVE [id number] [id number] 89 HIGH>RG=675 BRUNILDA Y HIGH*Guidelines provided by the National Choles terol EducationProgra m Adult Treatment Panel III SERUM [id number] 05:12:00 Test Item Value Reference Range Interpretation Comments SERUM IRON (test code = IRON) 90 mcg/dL 35-150 N THYROID STIMULATING [id number] 05:12:00 Test Item Value Reference Range Interpretation Comments THYROID STIMULATING 2.69 0.42-5.47 N Results in HORMONE (test code = TSH) mi lli-International Units/mL [id number] 05:12:00 Test Item Value Reference Range Interpretation Comments FERRITIN (test code = BRIDGET) 35.6 ng/mL 11.0-306.8 N RETIC COUNT (AUTOMATED)2022-05-20 05:08:00 Test Item Value Reference Range Interpretation Comments RETIC COUNT (AUTOMATED) (test code = 2.3 % 0.3-2.3 N RETICA) BASIC METABOLIC [id number] 05:00:00 Test Item Value Reference Range Interpretation [...] code = 8.0 mg/dL 8.0-10.5 N CA) [id number] 05:00:00 Test Item Value Reference Range Interpretation Comments MAGNESIUM (test code = MAG) 2.06 mg/dL 1.80-2.40 CBC W/AUTO [id number] 04:59:00 Test Item Value Reference Range Interpretation [...] = MDIFF) - CT ABD PELVIS W/O [id number] 00:00:00 [facility] 1935 Sex: F Name: KELLY SLOAN [facility] : 1935 Age/S: 87 / F [address] [place] [address] Blvd Unit #: [id number] Loc: [place] [address] Phys: Kyler Longoria MD Acct: [id number] Dis Date: Status: ADM IN PHONE #: [phone] Exam Date: 05/20/2022921 FAX #: [phone] Reason: Peritoneal nodularity, breast cancer EXAMS: CPT CODE: [id number] CT ABD PELVIS W/O CONT 08342 PROCEDURE INFORMATION: E xam: CT Abdomen And [...] 1 Signed Report (CONTINUED) Name: KELLY SLOAN [facility] : 1935 Age/S: 87 / F [address] [place] [address] Blvd Unit #: [id number] Loc: [place], [place] [address]Duod: Kyler Longoria MD Acct: [id number] Dis Date: Status: ADM IN PHONE #: [phone] Exam Date: 05/20/2022921 FAX #: [phone] Reason: Peritoneal nodularity, breast cancer EXAMS: CPT CODE: [id number] ABD PELVIS W/O CONT 81946 (Continued) Intraperitoneal space: There is a small volume of free intraperitoneal fluid. There is no focal fluid collection. There is no free intraperitoneal air.Multifocal peritoneal nodularity notably in the omentum and left upper quadrant. Largest discrete com ponent estimated 2.7 x 1.9 cm, series 2, [...] levels. Soft tissues: There is generalized subcutaneous edema.No focal fluid collection. IMPRESSION: 1. Findings of [...] recent CT chest report for further details. t 1526 Reported and signed by: Memo Saleem M.D. PAGE 2 Signed Report (CONTINUED) Name: KELLY NEWTON [facility] : 1935 Age/S: 87 / F [address] [place] [address] Blvd Unit #: [id number] Loc: [place] [address] Phys: Kyler Longoria MD Acct: [id number] Dis Date: Status: ADM IN PHONE #: [phone] Exam Date: 05/20/2022921 FAX #: [phone] Reason: Peritoneal nodularity, breast cancer EXAMS: CPT CODE: [id number] CT ABD PELVIS W/O CONT 78690 (Continued) CC: Kyler Longoria; Frank Putnam MD Technologist:Rosalind Sheehan. RT(R)(CT) CTDI: DLP: Trnscb Date/Time: 05/20/2022 (1526) Venita Orig Print D/T: S: 05/20/2022 (1526) PAGE 3 Signed ReportURINALYSIS [id number] 07:24:00 Test Item Value Reference Range Interpretation [...] 0-5 /HPF NONE SEEN SQU) CBC W/AUTO [id number] 04:25:00 Test Item Value Reference Range Interpretation [...] REQUIRED (test code NO = MDIFF) RBC [id number] 04:25:00 Test Item Value Reference Range Interpretation Comments ANISOCYTOSIS (test code = ANISO) 1+ POLYCHROMASIA (test code = POLC) 1+ HYPOCHROMIA (test code = HYPO) 1+ MICROCYTOSIS (test code = MICR) 1+ BASIC METABOLIC [id number] 04:14:00 Test Item Value Reference Range Interpretation [...] code = 7.7 mg/dL 8.0-10.5 L CA) [id number] 04:14:00 Test Item Value Reference Range Interpretation Comments MAGNESIUM (test code = MAG) 1.77 mg/dL 1.80-2.40 L - DUP VEIN [id number] 00:00:00 [facility] 1935 Sex: F Name: KELLY SLOAN [facility] : 1935 Age/S: 87 / F [address] [place] [address] Blvd Unit #: [id number] Loc: [place] [address] Phys: Analia Espinal MEDICAL CODING MANAGER Acct: [id number] Dis Date: Status: ADM IN PHONE #: [phone] Exam Date: 05/19/2022 0548 FAX #: [phone] Reason: PRE CABG E SPRING EXAMS: CPT CODE: [id number] DUP VEIN JOSE ENRIQUE 26004 PROCEDURE INFORMATION: Exam: US Duplex Lower Extremity [...] 1 Signed Report (CONTINUED) Name: KELLY SLOAN [facility] : 1935 Age/S: 87 / F [address] [place] [address] Unit #: [id number] Loc: [place] [address] Phys: Analia Espinal NP Acct: [id number] Dis Date: Status: ADM IN PHONE #: [phone] Exam Date: 05/19/2022 0548 FAX #: [phone] Reason: PRE CABG EVAL EXAMS: CPT CODE: [id number] DUP VEIN JOSE ENRIQUE 17964 (Continued) CC: Analia Sanders MEDICAL CODING MANAGER; Frank Putnam MD Technologist: Nannette Maldonado RDMS(AB)(OB) Trnscb Date/Time: 05/19/2022 (617) [email or web address] Orig Print D/T: S: 05/19/2022 (618) Probe: PAGE 2 Signed Report- DUP EXTRACRANIAL [id number] 00:00:00[facility] BHARGAV QIUName: KELLY SLOAN : 1935 Sex: F Name: KELLY SLOAN [facility] Bhargav Qiu : 1935 Age/S: 87 / F [address] [place] [address] Blvd Unit #: [id number] Loc: [place] [address] Phys: Analia Espinal MEDICAL CODING MANAGER Acct: [id number] Dis Date:Status: ADM IN PHONE #: [phone] Exam Date: 05/19/2022 0548 FAX #: [phone] Reason: PRE CABG EVAL EXAMS: CPT CODE: [id number] DUP EXTRACRANIAL JOSE ENRIQUE 77043 PROCEDURE INFORMATION: Exam: US Duplex Bilateral Extracranial [...] 1 Signed Report (CONTINUED) Name: KELLY SLOAN [facility] : 1935 Age/S: 87 / F [address] [place] [address] Blvd Unit #: [id number] Loc: [place] [address] Phys: Analia Sanders NP Acct:[id number] Dis Date: Status: ADM IN PHONE #: [phone] Exam Date: 05/19/2022 0548 FAX #: Reason: PRE CABG EVAL EXAMS: CPT CODE: [id number] DUP EXTRACRANIAL JOSE ENRIQUE 40570 (Continued) CC: Analia Sanders MEDICAL CODING MANAGER; Frank Putnam MD Technologist: Nannette Maldonado RDMS(AB)(OB) Trnscb Date/Time: 05/19/2022 (638) [email or web address] Orig Print D/T: S: 05/19/2022 (638) Probe: PAGE 2 Signed Report- CT CHEST W/O [id number] 00:00[facility]00 [facility] : 1935 Sex: F Name: KELLY SLOAN [facility] : 1935 Age/S: 87 / F [address] [place] [address] Blvd Unit #: [id number] Loc: [place] [address] Phys: Analia Espinal MEDICAL CODING MANAGER Acct: [id number] Dis Date: Status: ADM IN PHONE #: [phone] Exam Date: 05/19/2022 1047 FAX #: [phone] Reason: PRE CABG EVAL EXAMS: CPT CODE: [id number] CT CHEST W/O CONTRAST 83211 PROCEDURE INFORMATION: Exam: CT ChestWithout Contrast; Diagnostic Exam date and time: 05/19/2022 [...] dose is matched to clinical indication); or iterativereconstruction. COMPARISON: US DUP EXTRACRANIAL JOSE ENRIQUE 05/19/2022 [...] RPA, 3.8 cm. Descending aorta at the samelevel 2.3 cm. Distal aortic arch 2.4 cm. Mid descending aorta 2.9 cm. Distal descending aorta 2.7 cm. The main pulmonary artery measures 2.9 cm. Vasculature: Unremarkable. No aortic aneurysm. Diaphragm: A moderate hiatal hernia is present. PAGE 1 Signed Report (CONTINUED) Name: KELLY SLOAN [facility] : 1935 Age/S: 87 / F [address] [place] [address] Unit #: [id number] Loc: [place] [address] Phys: Analia Sanders MEDICAL CODING MANAGER Acct: [id number] Dis Date: Status: ADM IN PHONE #: [phone] Exam Date: 05/19/2022 1047 FAX #: [phone] Reason: PRE CABG EVAL EXAMS: CPT CODE: [id number] CT CHEST W/O CONTRAST 14706 (Continued) Liver: The liver is hyperattenuating, greater [...] demonstrates mild degenerative changes at multiple levels. Softtissues: There are breast conservation therapy changes in the right breast. There is no chest wall mass or fluid collection. Notes: Findings were discussed with Analia Sanders at 05/19/2022 1:28PM CDT. IMPRESSION: 1. Cardiomegaly. Severe coronary arterial calcifications. Aortic valve calcifications. 2. Small pericardial effusion. Mass lesion in the epicardial fat adjacent to the left anteriordescending artery. Given peritoneal disease, metastasis is not [...] of liver parenchyma. Increased iron deposition, amiodarone toxicityand other metabolic disorders in the differential. at 1329 Reported and signed by: Memo Saleem M.D. PAGE 2 Signed Report (CONTINUED) Name: KELLY SLOAN [facility] : 1935 Age/S: 87 / F [address] [place] [address] Unit #: [id number] Loc: [place] [address] Phys: Analia Sanders NP Acct: [id number] Dis Date: Status: ADM IN PHONE #: [phone] Exam Date: 05/19/2022 1047 FAX #: [phone] Reason:PRE CABG EVAL EXAMS: CPT CODE: [id number] CT CHEST W/O CONTRAST 21466 (Continued) CC: Analia Sanders MEDICAL CODING MANAGER; Frank Putnam MD Technologist:Jose Kaiser RT(R)(CT) CTDI: DLP: Trnscb Date/Time: 05/19/2022 (1328) [email or web address] Orig Print D/T: S: 05/19/2022 (1328) PAGE 3 Signed Report GLUCOSE [id number] 21:58:00 Test Item Value Reference Range Interpretation Comments GLUCOSE BEDSIDE (test 134 MG/DL 70-110 H Perfor med by certified code = GLUBED) mill and coal transport operator at [facility] [id number] 16:53:00 Test Item Value Reference Range Interpretation Comments ACT-ISTAT (test code 254 SEC 74-137 H Perform ed by certified = ACTI) mill and coal transport operator at [facility] [id number] 16:28:00 Test Item Value Reference Range Interpretation Comments JOURDANISMORENA (test code 248 SEC 74-137 H Perform ed by certified = ACTI) mill and coal transport operator at [facility]
[2022-12-04] MEDS ORDERED: NA CHLORIDE 0.9% 500 ML ONE (00:24)
[2022-12-04 00:26] LABS: Anisocytosis 1+; Blood Morphology Comment NOTED (NOT SEEN); Ovalocytes 1+; Platelet Estimate ADEQ; White Blood Cell Scan OK (OK)
[2022-12-04] MEDS ORDERED: ONDANSETRON 4 MG/2 ML VIAL ONE (01:19)
[2022-12-04] MEDS ORDERED: MORPHINE 2 MG/ML SYR ONE (01:19)
--- NOTE | 2022-12-04 01:37 | ER ---
Nurse's Notes [facility] Name: Minal Phillips Age: 87 yrs Sex: Female : 1935 Arrival Date: 12/03/2022 Time: 22:38 Bed 16 Private MD: Diagnosis: Chest pain, unspecified;Malignant pleural effusion Presentation: 12/03 23:02 Chief complaint: EMS states: 87 year old female reports not feeling normal. reports ha1 shortness of breath at rest. at home she uses a nasal canula at 4 liter oxygen. Coronavirus screen: Vaccine status: Patient reports receiving the 2nd dose of the covid vaccine. Ebola Screen: No symptoms or risks identified at this time. Initial Sepsis Screen: Does the patient meet any 2 criteria? RR > 20 per min. No. Patient's initial sepsis screen is negative. Does the patient have a suspected source of infection? No. Patient's initial sepsis screen is negative. Risk Assessment: Do you want to hurt yourself or someone else? Patient reports no desire to harm self or others. Onset of symptoms was December 03, 2022. 23:02 Method Of Arrival: EMS: [facility] ha1 23:02 Acuity: JASMINA 3 ha1 Triage Assessment: 22:50 General: Appears uncomfortable, Behavior is calm, cooperative. Pain: Denies pain. EENT: ha1 No signs and/or symptoms were reported regarding the EENT system. Neuro: Level of Consciousness is awake, alert, obeys commands, Oriented to person, place, time, situation. Cardiovascular: Heart tones S1 S2 present Capillary refill < 3 seconds Patient's skin is warm and dry. Rhythm is sinus tachycardia. Respiratory: Airway is patent Respiratory effort is even, unlabored, Respiratory pattern is regular, symmetrical. GI: No signs and/or symptoms were reported involving the gastrointestinal system. Abdomen is flat, non-distended, Bowel sounds present X 4 quads. : No signs and/or symptoms were reported regarding the genitourinary system. Derm: Skin is pink, warm \T\ dry. Musculoskeletal: Circulation, motion, and sensation intact. Range of motion: intact in all extremities. Historical: - Allergies: 23:07 PENICILLINS; ha1 - PMHx: 23:07 CAD; Congestive heart failure; GERD; Hypertensive disorder; pulmonary edema; Uterine CA;ha1 - PSHx: 23:07 Appendectomy; tumor removal RT breast; ha1 - Immunization history:: Adult Immunizations up to date. - Social history:: Smoking status: unknown. Screenin:10 [facility] ED Fall Risk Assessment (Adult) History of falling in the last 3 months, ha1 including since admission No falls in past 3 months (0 pts) Confusion or Disorientation No (0 pts) Intoxicated or Sedated No (0 pts) Impaired Gait Yes (1 pt) Mobility Assist Device Used Yes (1 pt) Altered Elimination No (0 pt) Score/Fall Risk Level 3 or more points = High Risk Oriented to surroundings, Maintained a safe environment, Educated pt \T\ family on fall prevention, incl call for assistance when getting out of bed, Assessed \T\ reinforced patient's understanding of fall precautions, Hourly rounding (assess needs \T\ fall precautionary measures) done, Used ambulatory aids as needed (educated on \T\ assisted with), Implemented a Fall Risk Plan of Care, Remained with patient while ambulating, Utilized family, sitter, or virtual flying i instructor as indicated. Abuse screen: Denies threats or abuse. Denies injuries from another. Nutritional screening: No deficits noted. Tuberculosis screening: No symptoms or risk factors identified. Assessment: 22:40 Reassessment: see triage assessment. ha1 23:40 Reassessment: Patient and/or family updated on plan of care and expected duration. Pain ha1 level reassessed. Patient is alert, oriented x 3, equal unlabored respirations, skin warm/dry/pink. Patient denies pain at this time. 12/04 00:20 Reassessment: Patient and/or family updated on plan of care and expected duration. Pain ha1 level reassessed. Patient is alert, oriented x 3, equal unlabored respirations, skin warm/dry/pink. Patient denies pain at this time. 00:25 Reassessment: cell phone # Uriel Alas [phone]. ha1 01:22 General: Patient was complaining of severe chest pain after being placed on a bedpan. tw5 Repeat EKG obtained showing Afib with RVR. EKG provided to provider. Pain: Complains of pain in chest Pain currently is 10 out of 10 on a pain scale. 01:45 Reassessment: Patient and/or family updated on plan of care and expected duration. Pain ha1 level reassessed. Patient is alert, oriented x 3, equal unlabored respirations, skin warm/dry/pink. going to CT. 02:30 Reassessment: Patient and/or family updated on plan of care and expected duration. Pain ha1 level reassessed. Patient is alert, oriented x 3, equal unlabored respirations, skin warm/dry/pink. starting blood transfusion. 02:30 Reassessment: Patient and/or family updated on plan of care and expected duration. Pain ha1 level reassessed. Patient is alert, oriented x 3, equal unlabored respirations, skin warm/dry/pink. Patient denies pain at this time. 03:30 Reassessment: Patient and/or family updated on plan of care and expected duration. Pain ha1 level reassessed. Patient is alert, oriented x 3, equal unlabored respirations, skin warm/dry/pink. Patient denies pain at this time. 04:15 Reassessment: Patient and/or family updated on plan of care and expected duration. Pain ha1 level reassessed. Patient is alert, oriented x 3, equal unlabored respirations, skin warm/dry/pink. blood transfusion completed. no adverse reaction. Patient denies pain at this time. Patient states feeling better. Vital Signs: 12/03 22:40 BP 137 / 63; Pulse 114; Resp 22 S; Pulse Ox 97% on 4 lpm NC; 22:59 Temp 97.9; tw5 23:02 BP 137 / 63; Pulse 114; Resp 22 S; Temp 97.9(O); Pulse Ox 97% on 4 lpm NC; Weight 60.33 ha1 kg; Height 5 ft. 4 in. (162.56 cm); 23:40 BP 127 / 57; Pulse 104; Resp 22 S; Pulse Ox 97% on 4 lpm NC; ha1 12/04 00:20 BP 108 / 60; Pulse 108; Resp 20 S; Pulse Ox 96% on R/A; ha1 01:15 BP 142 / 57; Pulse 110; Resp 20 S; Pulse Ox 94% on 4 lpm NC; ha1 02:30 BP 112 / 60; Pulse 102; Resp 20 S; Temp 97.9(O); Pulse Ox 97% 4 lpm ; ha1 02:30 BP 131 / 56; Pulse 97; Resp 20 S; Temp 97.7; Pulse Ox 98% on 4 lpm NC; ha1 02:40 BP 121 / 58; Pulse 100; Resp 20 S; Temp 97.5(O); Pulse Ox 96% on 4 lpm NC; ha1 03:30 BP 128 / 66; Pulse 103; Resp 19 S; Pulse Ox 100% on 4 lpm NC; ha1 04:15 BP 125 / 59; Pulse 100; Resp 19 S; Pulse Ox 100% on 4 lpm NC; ha1 12/03 23:02 Body Mass Index 22.83 (60.33 kg, 162.56 cm) ha1 ED Course: 12/03 22:38 Patient arrived in ED. mw2 22:40 Patient has correct armband on for positive identification. Placed in gown. Bed in low ha1 position. Call light in reach. Side rails up X 1. 22:50 Arm band placed on right wrist. ha1 22:53 Néstor Phelan MD is Attending Physician. kdr 23:02 Evon Rasmussen RN is Primary Nurse. ha1 23:06 Triage completed. ha1 23:38 XRAY Chest (1 view) In Process Unspecified. EDMS 23:44 Inserted saline lock: 24 gauge in right forearm, using aseptic technique. Blood kl collected. 23:44 Missed attempt(s): 22 gauge in left forearm. kl 23:52 Basic Metabolic Panel Sent. ha1 23:52 CBC with Diff Sent. ha1 23:52 D-Dimer Sent. ha1 23:52 NT PRO-BNP Sent. ha1 23:52 Troponin HS Sent. ha1 23:54 Notified ED physician of a critical lab result(s). H \T\ H 6.1 19.2. tw5 23:59 Notified ED physician of a critical lab result(s). Zeynep ames [id number]. tw5 12/04 00:00 Notified ED physician of. kl 00:59 Type And Screen Sent. tw5 01:36 Srinivasan Romero is Hospitalizing Provider. kdr 01:56 SARS RAPID Sent. ha1 02:08 CT Chest For PE Angio In Process Unspecified. EDMS 05:06 No provider procedures requiring assistance completed. Patient admitted, IV remains in ha1 place. Administered Medications: 01:22 Drug: morphine 2 mg Route: IVP; Infused Over: 4 mins; Site: left antecubital; tw5 01:45 Follow up: Response: No adverse reaction; Pain is decreased; RASS: Alert and Calm (0) ha1 01:22 Drug: Zofran (Ondansetron) 4 mg Route: IVP; Site: left antecubital; tw5 01:45 Follow up: Response: No adverse reaction ha1 Medication: 05:07 VIS not applicable for this client. ha1 Outcome: 01:36 Decision to Hospitalize by Provider. kdr 05:06 Admitted to Med/surg accompanied by tech, via stretcher, room 229, with oxygen, Report ha1 called to REINA May 05:06 Condition: stable 05:10 Patient left the ED. ha1 Signatures: Dispatcher [employer] EDNiki Cornelius, RN Néstor Dejesus MD MD [facility] Jg Mari mw2 Charley Tinajero tw5 Evon Rasmussen RN RN ha1
--- NOTE | 2022-12-04 01:37 | EDPHYS ---
Physician Documentation [facility] Name: Minal Phillips Age: 87 yrs Sex: Female : 1935 Arrival Date: 12/03/2022 Time: 22:38 Bed 16 Private MD: ED Physician Néstor Phelan HPI: 12/04 19:19 This 87 yrs old Female presents to ER via EMS with unknown complaint. kdr 19:19 This 87 yrs old Female presents to ER via EMS with complaints of not Feeling kdr well. 19:19 Patient presents to the ED complaining of generally not feeling well. Patient has lung kdr cancer and has an indwelling left lateral chest tube which is draining a recurrent pleural effusion every other day. Patient has no focal complaints. Patient does not appear toxic at this time. Patient also complains of intermittent mild to minor chest pain. Onset: The symptoms/episode began/occurred today. Severity of symptoms: At their worst the symptoms were mild in the emergency department the symptoms are unchanged. The patient has experienced similar episodes in the past, chronically. The patient has been recently seen by a physician: the patient's primary care provider. Historical: - Allergies: 12/03 23:07 PENICILLINS; ha1 - PMHx: 23:07 CAD; Congestive heart failure; GERD; Hypertensive disorder; pulmonary edema; Uterine CA;ha1 - PSHx: 23:07 Appendectomy; tumor removal RT breast; ha1 - Immunization history:: Adult Immunizations up to date. - Social history:: Smoking status: unknown. ROS: 12/04 19:19 Constitutional: Negative for fever, chills, and weight loss, Eyes: Negative for injury, kdr pain, redness, and discharge, Neck: Negative for injury, pain, and swelling, Abdomen/GI: Negative for abdominal pain, nausea, vomiting, diarrhea, and constipation, Back: Negative for injury and pain, : Negative for injury, bleeding, discharge, and swelling, MS/Extremity: Negative for injury and deformity, Skin: Negative for injury, rash, and discoloration, Neuro: Negative for headache, weakness, numbness, tingling, and seizure activity. Psych: Negative for depression, anxiety, suicide ideation, homicidal ideation, and hallucinations, Allergy/Immunology: Negative for hives, rash, and allergies, Endocrine: Negative for neck swelling, polydipsia, polyuria, polyphagia, and marked weight changes, Hematologic/Lymphatic: Negative for swollen nodes, abnormal bleeding, and unusual bruising. Cardiovascular: Positive for chest pain, Negative for edema, orthopnea, palpitations, paroxysmal nocturnal dyspnea. Respiratory: Positive for dyspnea on exertion, shortness of breath, at rest. Negative for hemoptysis, orthopnea, pleurisy. Exam: 19:19 Constitutional: This is a well developed, well nourished patient who is awake, alert, kdr and in no acute distress. Head/Face: Normocephalic, atraumatic. Eyes: Pupils equal round and reactive to light, extra-ocular motions intact. Lids and lashes normal. Conjunctiva and sclera are non-icteric and not injected. Cornea within normal limits. Periorbital areas with no swelling, redness, or edema. Neck: Trachea midline, no thyromegaly or masses palpated, and no cervical lymphadenopathy. Supple, full range of motion without nuchal rigidity, or vertebral point tenderness. No Meningismus. Chest/axilla: Normal chest wall appearance and motion. Nontender with no deformity. No lesions are appreciated. Cardiovascular: Regular rate and rhythm with a normal S1 and S2. No gallops, murmurs, or rubs. Normal PMI, no JVD. No pulse deficits. Abdomen/GI: Soft, non-tender, with normal bowel sounds. No distension or tympany. No guarding or rebound. No evidence of tenderness throughout. Back: No spinal tenderness. No costovertebral tenderness. Full range of motion. Skin: Warm, dry with normal turgor. Normal color with no rashes, no lesions, and no evidence of cellulitis. MS/ Extremity: Pulses equal, no cyanosis. Neurovascular intact. Full, normal range of motion. Neuro: Awake and alert, GCS 15, oriented to person, place, time, and situation. Cranial nerves II-XII grossly intact. Motor strength 5/5 in all extremities. Sensory grossly intact. Cerebellar exam normal. Normal gait. Psych: Awake, alert, with orientation to person, place and time. Behavior, mood, and affect are within normal limits. 19:19 Chest/axilla: There is a left lateral anterior dressing over the chest tube drain. It appears to be in satisfactory condition. 19:19 Respiratory: the patient does not display signs of respiratory distress, Respirations: normal, Breath sounds: rales, that are mild, are scattered. Vital Signs: 12/03 22:40 BP 137 / 63; Pulse 114; Resp 22 S; Pulse Ox 97% on 4 lpm NC; ha1 22:59 Temp 97.9; tw5 23:02 BP 137 / 63; Pulse 114; Resp 22 S; Temp 97.9(O); Pulse Ox 97% on 4 lpm NC; Weight 60.33 ha1 kg; Height 5 ft. 4 in. (162.56 cm); 23:40 BP 127 / 57; Pulse 104; Resp 22 S; Pulse Ox 97% on 4 lpm NC; ha1 12/04 00:20 BP 108 / 60; Pulse 108; Resp 20 S; Pulse Ox 96% on R/A; ha1 01:15 BP 142 / 57; Pulse 110; Resp 20 S; Pulse Ox 94% on 4 lpm NC; ha1 02:30 BP 112 / 60; Pulse 102; Resp 20 S; Temp 97.9(O); Pulse Ox 97% 4 lpm ; ha1 02:30 BP 131 / 56; Pulse 97; Resp 20 S; Temp 97.7; Pulse Ox 98% on 4 lpm NC; ha1 02:40 BP 121 / 58; Pulse 100; Resp 20 S; Temp 97.5(O); Pulse Ox 96% on 4 lpm NC; ha1 03:30 BP 128 / 66; Pulse 103; Resp 19 S; Pulse Ox 100% on 4 lpm NC; ha1 04:15 BP 125 / 59; Pulse 100; Resp 19 S; Pulse Ox 100% on 4 lpm NC; ha1 12/03 23:02 Body Mass Index 22.83 (60.33 kg, 162.56 cm) ha1 MDM: 01:36 Patient medically screened. kdr 19:19 Data reviewed: vital signs, nurses notes, lab test result(s), radiologic studies. kdr Consideration of Admission/Observation Patient was admitted/placed on observation. Escalation of care including admission/observation considered. Management of patient was discussed with the following: Hospitalist: MAURICIO Saxena. I considered the following discharge prescriptions or medication management in the emergency department Medications were administered in the Emergency Department. See MAR. Test considered but Not performed: MRI: CT. ED course: Patient continues stable in the ED was admitted to telemetry in stable condition. 12/03 23:02 Order name: Basic Metabolic Panel; Complete Time: 00:28 kdr 12/03 23:02 Order name: CBC with Diff; Complete Time: 00:28 kdr 12/03 23:02 Order name: D-Dimer; Complete Time: 00:28 kdr 12/03 23:02 Order name: NT PRO-BNP; Complete Time: 00:28 kdr 12/03 23:02 Order name: Troponin HS; Complete Time: 00:28 kdr 12/03 23:55 Order name: Type And Screen kl 12/03 23:02 Order name: XRAY Chest (1 view) kdr 12/03 23:03 Order name: CT Chest For PE Angio kdr 12/03 23:56 Order name: CBC Smear Scan; Complete Time: 00:28 EDMS 12/04 01:24 Order name: Packed RBC Leukored EDMS 12/04 01:40 Order name: SARS RAPID; Complete Time: 04:23 mw2 12/03 23:02 Order name: EKG; Complete Time: 23:03 kdr 12/03 23:02 Order name: Cardiac monitoring; Complete Time: 23:41 kdr 12/03 23:02 Order name: EKG - Nurse/Tech; Complete Time: 23:11 kdr 12/03 23:02 Order name: IV Saline Lock; Complete Time: 23:52 kdr 12/03 23:02 Order name: Labs collected and sent; Complete Time: 23:52 kdr 12/03 23:02 Order name: O2 Per Protocol; Complete Time: 23:41 kdr 12/03 23:02 Order name: O2 Sat Monitoring; Complete Time: 23:41 kdr Administered Medications: 01:22 Drug: morphine 2 mg Route: IVP; Infused Over: 4 mins; Site: left antecubital; tw5 01:45 Follow up: Response: No adverse reaction; Pain is decreased; RASS: Alert and Calm (0) ha1 01:22 Drug: Zofran (Ondansetron) 4 mg Route: IVP; Site: left antecubital; tw5 01:45 Follow up: Response: No adverse reaction ha1 Disposition Summary: 12/04/22 01:36 Hospitalization Ordered Hospitalization Status: Inpatient Admission kdr Provider: Srinivasan Romero Location: Telemetry/MedSurg (Inpatient) kdr Condition: Fair kdr Problem: new kdr Symptoms: have improved kdr Bed/Room Type: Standard kdr Room Assignment: 229(12/04/22 04:16) mw Diagnosis - Chest pain, unspecified kdr - Malignant pleural effusion kdr Forms: - Medication Reconciliation Form kdr - SBAR form kdr Signatures: Dispatcher [employer] EDPromise Rahman RN RN mw Néstor Phelan MD MD kdr Charley Tinajero tw5 Evon Rasmussen RN RN ha1 Rissa Saxena PA-C PA-C sb4 Corrections: (The following items were deleted from the chart) 03:11 01:36 kdr mw 04:16 03:11 228 mw mw
[2022-12-04 02:18] LABS: SARS-CoV-2 Antigen Rapid Res Negative (Negative)
[2022-12-04] MEDS ORDERED: ALBUTEROL 2.5 MG/3 ML NEB SOL NEB PRN (04:35)
[2022-12-04 04:43] VITALS: BMI 22.8
--- NOTE | 2022-12-04 04:47 | P.HP ---
Certification for Inpatient Patient admitted to: Inpatient With expected LOS: >2 Midnights Patient will require the following post-hospital care: None Practitioner: I am a practitioner with admitting privileges, knowledge of patient current condition, hospital course, and medical plan of care. 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 Patient has dementia and is a poor historian. was previously at bedside and stated that she is actively on chemotherapy and has a left sided chest tube that home health comes to drain 3x week. She presented to the emergency department today with complaints of shortness of breath and generally not feeling well. She was noted to have a hemoglobin of 6.1, hct 19.2, ddimer 3816, trop 246, BNP 5387. Rectal exam soft brown stool without any concern for blood. CTA chest showed "Extensive bilateral pulmonary infiltrates with a lower lobe predominance. Moderate to large right and small left pleural effusions. Findings may in part be related to pulmonary congestion." Per chart review, patient has become anemic secondary to chemotherapy previously. She has also had elevated troponin and ddimer in the past. 2 units PRBC ordered and are transfusing. She did endorse some chest pain and when EKG was obtained, it showed afib RVR. That has since resolved. Patient denies any history of afib. She will be admitted for further management. Allergies Penicillins Allergy (Intermediate, Verified 05/10/22 09:20) Itching/Hives/Rash Home medications list reviewed: Yes Home Medications: Losartan Potassium [Cozaar] 100 mg PO DAILY WITH BREAKFAST 09/16/16 Omeprazole 20 mg PO DAILY 09/16/16 Anastrozole [Arimidex*] 1 mg PO BEDTIME 02/15/22 Aspirin 81 mg PO DAILY 05/10/22 Memantine HCl [Namenda] 5 mg PO BID 05/10/22 Amlodipine Besylate [Norvasc] 5 mg PO DAILY 05/30/22 Atorvastatin Calcium [Lipitor] 40 mg PO BEDTIME 05/30/22 Cyclobenzaprine [Flexeril*] 10 mg PO BEDTIME 05/30/22 Trazodone HCl 50 mg PO BEDTIME 05/30/22 - Past Medical/Surgical History Diabetic: No -: GERD -: HTN -: Rt breast Cancer with chemo-2016 -: dementia -: 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 - Family History Mother -: Heart disease Father -: Lung disease, GI disease, Cancer - Social History Smoking Status: Never smoker Alcohol use: No CD- Drugs: No Caffeine use: Yes Place of Residence: Home Review of Systems Respiratory: Shortness of Breath Cardiovascular: Chest Pain Physical Examination - Vital Signs Temperature: 97.5 F Blood Pressure: 125/59 Pulse: 100 Respirations: 19 Pulse Ox (%): 100 (4L NC) - Physical Exam General: Alert, In no apparent distress, Demented HEENT: Atraumatic, PERRLA, EOMI, Sclerae nonicteric Neck: Supple, 2+ carotid pulse no bruit Respiratory: Diminished Cardiovascular: Regular rate/rhythm, Normal S1 S2 Gastrointestinal: Normal bowel sounds, No tenderness Musculoskeletal: No tenderness Integumentary: No rashes Neurological: Normal speech, Normal strength at 5/5 x4 extr, Normal tone, Normal affect - Studies Laboratory Data (last 24 hrs) 12/03/22 23:40: WBC 5.20, Hgb 6.1 L*, Hct 19.2 L*, Plt Count 171 12/03/22 23:40: Sodium 134 L, Potassium 3.6, BUN 28 H, Creatinine 1.08 H, Glucose 133 H Assessment and Plan - Problems (Diagnosis) (1) Acute on chronic diastolic heart failure Current Visit: No Status: Acute (2) Anemia Current Visit: No Status: Acute Qualifiers: Anemia type: other cause Other causes of anemia: chronic disease, other Qualified Code(s): D63.8 - Anemia in other chronic diseases classified elsewhere (3) CAD (coronary artery disease) Current Visit: No Status: Chronic Qualifiers: Coronary Disease-Associated Artery/Lesion type: [place] artery [place] vs. transplanted heart: [place] heart Associated angina: with unstable angina Qualified Code(s): I25.110 - Atherosclerotic heart disease of [place] coronary artery with unstable angina pectoris (4) Dementia Current Visit: No Status: Chronic Qualifiers: Dementia type: unspecified type Dementia severity: unspecified severity Dementia behavioral or psychological symptom: without behavioral, psychotic, or mood disturbance or anxiety Qualified Code(s): F03.90 - Unspecified dementia, unspecified severity, without behavioral disturbance, psychotic disturbance, mood disturbance, and anxiety (5) HTN (hypertension) Current Visit: No Status: Chronic Qualifiers: Hypertension type: primary hypertension Qualified Code(s): I10 - Essential (primary) hypertension (6) Primary cancer of ovary with widespread metastatic disease Current Visit: No Status: Chronic Qualifiers: Laterality: unspecified laterality Qualified Code(s): C56.9 - Malignant neoplasm of unspecified ovary; C80.0 - Disseminated malignant neoplasm, unspecified (7) Afib Current Visit: Yes Status: Acute Qualifiers: Atrial fibrillation type: paroxysmal Qualified Code(s): I48.0 - Paroxysmal atrial fibrillation - Plan Patient is admitted for further management of severe anemia and chest pain. 2 units PRBC transfusing. Will check post transfusion H&H and iron studies. Patient has had anemia secondary to chemotherapy in the past that responded well to transfusions. No melanotic stools or concern for GIB. Troponin was elevated, likely secondary to demand ischemia. Patient had a short episode of afib RVR captured on EKG which she denies any history of. Will trend troponin and consult cardiology. CTA showing questionable infiltrates. No white count. No fevers/cough. Will go ahead with antibiotics as she is high risk for infection. Ddimer also elevated, which has been in the past. CTA negative for PE. Will also consult pulmonology for continued care of chest tube. Monitor and replete electrolytes per protocol. Reconcile and continue home medications. SCDs for VTE prophylaxis. DNR. Discharge Plan: Home Plan to discharge in: Greater than 2 days - Advance Directives Does patient have a Living Will: Yes Does patient have a Durable POA for Healthcare: No - Code Status/Comfort Care Code Status Assessed: Yes Code Status: Do Not Attempt Resuscitat Physician Review: Patient Assessed, Agree with Above Assessment and Plan Critical Care: No Time Spent Managing Pts Care (In Minutes): 50
[2022-12-04] MEDS ORDERED: NA CHLORIDE 0.9% 250 ML ONE (06:26)
[2022-12-04] MEDS ORDERED: ONDANSETRON 4 MG/2 ML VIAL IV PRN (07:00)
[2022-12-04] MEDS ORDERED: ENOXAPARIN 40 MG/0.4 ML SQ SCH (09:00)
[2022-12-04] MEDS: PIPER TAZO 3.375 GM in NA CHLORIDE 0.9% 100 ML IV SCH ×2 (09:16→17:13)
--- NOTE | 2022-12-04 13:05 | P.PN ---
Date of Service: 12/04/22 Patient seen and examined. She is awake and alert. Arabic-speaking. She is tolerating 2 L oxygen by nasal cannula. She reports good appetite and she is eating well. Spouse stated patient able to ambulate with a walker but functional status is declining. Now able to walk only short distances with a walker and gets extremely fatigued. Diagnosis: Symptomatic anemia. No active bleeding. Bilateral pleural effusion-worse on the right History of metastatic ovarian cancer currently on chemo. Chronic respiratory failure with hypoxia. Elevated troponin Plan: Antibiotics PRBC transfusion. Elevated troponin likely secondary to demand ischemia. Continue to trend troponin. Obtain echocardiogram. Patient is stable on baseline oxygen. Will consider right-sided thoracentesis if her respiratory condition worsens.
--- NOTE | 2022-12-04 14:22 | RAD REPORT ---
EXAM DESCRIPTION: RAD - Chest Single View - 12/03/2022 11:36 pm CLINICAL HISTORY: The patient is 87 years old and is Female; CHEST PAIN TECHNIQUE: Frontal view of the chest. COMPARISON: May 10, 2022. FINDINGS: Lungs: Diffuse interstitial and airspace opacities bilaterally. Pleural space: Blunting of the costophrenic angles suggestive of bilateral pleural effusions. No pneumothorax. Heart: Unremarkable.. Mediastinum: Unremarkable. Bones/joints: Unremarkable. Tubes, lines and devices: Left Port-A-Cath with tip at the cavoatrial junction. Right-sided pacemaker. IMPRESSION: 1. Diffuse interstitial and airspace opacities bilaterally. 2. Blunting of the costophrenic angles suggestive of bilateral pleural effusions. Electronically signed by: Can Guajardo MD 12/03/2022 11:50 PM FRONT COUNTER CLERK Due to temporary technical issues with the PACS/Fluency reporting system, reports are being signed by the in house radiologists without review as a courtesy to insure prompt reporting. The interpreting radiologist is fully responsible for the content of the report.
--- NOTE | 2022-12-04 16:23 | RAD REPORT ---
EXAM DESCRIPTION: CT - Chest For Pe Angio - 12/04/2022 6:45 am CLINICAL HISTORY: Chest pain and SOB TECHNIQUE: Axial computed tomographic angiography images of the chest with intravenous contrast. S agittal and coronal reformatted images were created and reviewed. This CT exam was performed using one or more of the following dose reduction techniques: automated exposure control, adjustment of t he mA and/or kV according to patient size, and/or use of iterative reconstruction technique. MIP reconstructed images were created and reviewed. COMPARISON: CTA Chest dated 09/19/2022 FINDINGS: Artifacts: Motion artifact degrades image quality and limits evaluation of segmental and subsegmental vessels. Pulmonary arteries: Unremarkable. No central or proximal segmental pulmonary arterial filling def ects. Aorta: Moderate to severe atherosclerotic disease. No thoracic aortic aneurysm. Lungs: Multifocal patchy opacities within the lungs bilaterally with a lower lobe predominance. Pleural space: Moderate to large right and small left pleural effusions. Heart: The heart is moderately enlarged. Coronary artery and mitral annular calcification. No s ignificant pericardial effusion. No evidence of RV dysfunction. Mediastinum: Small to moderate hiatal hernia. Bones/joints: Multilevel spondylosis. No acute fracture. No dislocation. Soft tissues: Unremarkable. Lymph nodes: Unremarkable. No enlarged lymph nodes. Tubes, lines and devices: Right chest wall dual-lead pacer. Left-sided chest tube terminating at the inferior lateral aspect of the pleural space. IMPRESSION: 1. Motion artifact degrades image quality and limits evaluation of segmental and subse gmental vessels. No central or proximal segmental pulmonary embolic disease. 2. Extensive bilateral pulmonary infiltrates with a lower lobe predominance. Moderate to large ri ght and small left pleural effusions. Findings may in part be related to pulmonary congestion. 3. Other findings as above. Electronically signed by: Cade Shen MD 12/04/2022 2:31 AM TUGGER OPERATOR Due to temporary technical issues with the PACS/Fluency reporting system, reports are being signed by the in house radiologists without review as a courtesy to insure prompt reporting. The interpreting radiologist is fully responsible for the content of the report.
--- NOTE | 2022-12-04 18:23 | CON ---
Date of Consultation: 12/04/2022 Reason For Consultation: Atrial fibrillation, atypical chest pain, and anemia. History Of Present Illness: Ms. Phillips is 87. She is a do not resuscitate. She has a history of hypertension, congestive heart failure, coronary artery disease, uterine cancer, breast cancer, and g astroesophageal reflux disease. Came in with weakness, was found to have a hemoglobin of 6.1, tachyc ardia initially AFib, now sinus tach. She has received 2 units of blood transfusions already. Her t roponin was 860. D-dimer 3816. Her pain was mostly mid epigastric. Denied any active bleeding. Past Medical History: As stated above. Allergies: NONE. Review of Systems: Positive for being a do not resuscitate. Social History: Negative. Family History: Negative. Medications: At home include Arimidex, Norvasc, Cozaar, aspirin, Lipitor, Prilosec, and Namenda. Physical Examination: General: She is a very pleasant, alert and oriented x3. Vital Signs: Stable. She was in sinus tach at a rate of 110. She was afebrile. HEENT: Negative. Neck: Supple with no bruit. Chest: Clear. Cardiac: Revealed tachycardia with no murmurs, gallops, or rubs. Abdomen: Benign. Extremities: Revealed no clubbing, cyanosis, or edema. Diagnostic Data: As stated above. Chest x-ray showed bilateral pleural effusions. EKG shows sinus tachycardia. First EKG showed AFib. Impression And Plan: Atrial fibrillation and sinus tachycardia as well as elevated troponin and BNP, all of those are secondary to severe anemia of 6.1. Her malignant pleural effusion may be contribut ing to those numbers. She has hypertension, history of congestive heart failure. She is a do not re suscitate. She has had a history of uterine cancer, breast cancer, coronary artery disease, gastroes ophageal reflux disease. For now, I agree with transfusion. She is not a candidate for anticoagulat ion. Obtain a 2D echocardiogram in the morning. We will proceed with plans depending what the echo shows, definitely no plan for any coronary intervention. Her blood pressure is fairly well controlle d. Her coronary artery disease is stable. KOBE/MODL Voice ID: [id number] Report ID: [id number]
[2022-12-05] MEDS: PIPER TAZO 3.375 GM in NA CHLORIDE 0.9% 100 ML IV SCH ×3 (01:39→17:00)
[2022-12-05 03:42] LABS: Hematocrit 22.3 % (36.0-45.0); Lymphocytes % 21.2 % (15.3-44.8); MCV 82.1 fL (80-100); MPV 6.8 fL (7.6-11.3); RBC Red Blood Cell Count 2.72 M/uL (3.86-4.86)
[2022-12-05 04:35] LABS: Ferritin 131.3 ng/mL (8-388); Magnesium 2.2 mg/dL (1.6-2.4); Phosphorus 3.1 mg/dL (2.5-4.9); Potassium 3.7 mmol/L (3.5-5.1); Thyroid Stimulating Hormone 1.66 uIU/mL (0.358-3.740)
[2022-12-05] MEDS ORDERED: POTASSIUM CL SA 10 MEQ TAB PO ONE (09:00)
--- NOTE | 2022-12-05 15:13 | P.PN ---
Subjective Date of Service: 12/05/22 Primary Care Provider: Grzegorz Chief Complaint: Chest Pain, Anemia Patient has no new complaint. I spoke to her son who reported patient has been experiencing shortness of breath with exertion and increased weakness. She is afebrile and currently requiring 4 L of oxygen by nasal cannula. Physical Examination - Vital Signs Temperature: 98.0 F Blood Pressure: 131/54 Pulse: 106 Respirations: 14 Pulse Ox (%): 96 Assessment And Plan - Current Problems (Diagnosis) (1) Pneumonia Current Visit: No Status: Acute Qualifiers: (2) Bilateral pleural effusion Current Visit: Yes Status: Acute (3) Acute and chronic respiratory failure with hypoxia Current Visit: Yes Status: Acute (4) Severe anemia Current Visit: No Status: Acute (5) History of breast cancer Current Visit: No Status: Chronic (6) Primary cancer of ovary with widespread metastatic disease Current Visit: No Status: Chronic Qualifiers: Laterality: unspecified laterality Qualified Code(s): C56.9 - Malignant ne oplasm of unspecified ovary; C80.0 - Disseminated malignant neoplasm, unspecified (7) Elevated troponin Current Visit: Yes Status: Acute - Plan Physical Exam General: Alert, In no apparent distress, Demented HEENT: 4 L oxygen by nasal cannula Neck: Supple, no elevated JVD Respiratory: Diminished on the right, mild bibasilar crackles. Cardiovascular: Regular rate/rhythm, Normal S1 S2 Gastrointestinal: Normal bowel sounds, No tenderness Musculoskeletal: No tenderness Integumentary: No rashes Neurological: Normal speech, no focal motor deficit. Plan: Continue aggressive antibiotic therapy. I suspect patient's easy fatigability and shortness of breath is due to anemia plus worsening respiratory failure secondary to pleural effusion. She has Pleurx catheter on the left which is draining periodically. Significant pleural pleural fluid collection in the right. Ordered US guided thoracentesis. Status post 2 units PRBC transfusion. Posttransfusion hemoglobin is 7.3. Continue to monitor hemoglobin and transfuse as needed. Wean oxygen as tolerated. Validated, reconcile and continue other home medications. Physician Review: Patient Assessed, Agree with Above Assessment and Plan
--- NOTE | 2022-12-05 17:35 | EKG ---
Test Date: 2022-12-04 Test Time: 01:09:45 Fiberglass Model Maker: LUISANA MEASUREMENT RESULTS: Intervals: Rate: 119 [place]: QRSD: 154 QT: 308 QTc: 433 [place]: P: NH: QRS: -33 T: 134 INTERPRETIVE STATEMENTS: Atrial fibrillation with rapid ventricular response Left axis deviation Left bundle branch block Abnormal ECG Compared to ECG 12/03/2022 23:07:25 Left-axis deviation now present Left bundle-branch block now present Sinus tachycardia no longer present Atrial premature complex(es) no longer present Electronically Signed On 12-05-22 17:32:04 STEEL FINISHER by Frank Putnam
--- NOTE | 2022-12-05 17:36 | EKG ---
Test Date: 2022-12-03 Test Time: 23:07:25 Cemetery Counselor: RV MEASUREMENT RESULTS: Intervals: Rate: 114 MT: 184 QRSD: 154 QT: 378 QTc: 521 [place]: P: 42 MT: 184 QRS: -27 T: 125 INTERPRETIVE STATEMENTS: Sinus tachycardia with premature atrial complexes Nonspecific intraventricular block Abnormal ECG Compared to ECG 10/07/2022 13:32:28 Atrial premature complex(es) now present Ventricular premature complex(es) no longer present Left bundle-branch block no longer present Electronically Signed On 12-05-22 17:32:23 [employer] TECHNICAL ARCHITECT by Frank Putnam
[2022-12-06] MEDS: PIPER TAZO 3.375 GM in NA CHLORIDE 0.9% 100 ML IV SCH ×2 (01:00→08:43)
[2022-12-06] MEDS ORDERED: PIPERACIL/TAZO 3.375 GM VIAL IV ONE ×2 (01:08→08:34)
[2022-12-06] MEDS ORDERED: NA CHLORIDE 0.9% 100 ML ONE ×2 (01:09→08:38)
[2022-12-06] MEDS: ALBUTEROL 2.5 MG/3 ML NEB SOL NEB PRN ×2 (01:37→20:05)
[2022-12-06 03:45] LABS: Absolute Lymphocytes (CBC) 0.8 K/uL (0.7-4.9); Hematocrit 22.6 % (36.0-45.0); Lymphocytes % 18.1 % (15.3-44.8); MCV 83.1 fL (80-100); MPV 6.9 fL (7.6-11.3); RBC Red Blood Cell Count 2.72 M/uL (3.86-4.86)
[2022-12-06 04:05] LABS: Potassium 4.2 mmol/L (3.5-5.1)
--- NOTE | 2022-12-06 06:55 | ECHO ---
HEIGHT: 5 ft 4 in WEIGHT: 133 lb 0 oz DATE OF STUDY: 12/05/[address]: Rissa Saxena 2-DIMENSIONAL: YES M.MODE: YES DOPPLER: YES COLOR FLOW: YES TDS: PORTABLE: YES DEFINITY: BUBBLE STUDY: DIAGNOSIS: ATRIAL FIBRILLATION CARDIAC HISTORY: CATHERIZATION: SURGERY: PROSTHETIC VALVE: PACEMAKER: MEASUREMENTS (cm) DIASTOLIC (NORMALS) SYSTOLIC (NORMALS) IVSd 1.0 (0.6-1.2) LA Diam 4.4 (1.9-4.0) LVEF 55% LVIDd 4.9 (3.5-5.7) LVIDs 3.5 (2.0-3.5) %FS 29% LVPWd 1.2 (0.6-1.2) Ao Diam 2.6 (2.0-3.7) 2 DIMENSIONAL ASSESSMENT: RIGHT ATRIUM: NORMAL LEFT ATRIUM: ENLARGED RIGHT VENTRICLE: NORMAL LEFT VENTRICLE: NORMAL TRICUSPID VALVE: MODERATE TRICUSPID REGURGITATION MITRAL VALVE: MILD MITRAL REGURGITATION WITH MITRAL ANNULAR CALCIFICATION PULMONIC VALVE: NORMAL AORTIC VALVE: NORMAL PERICARDIAL EFFUSION: NONE AORTIC ROOT: NORMAL LEFT VENTRICULAR WALL MOTION: RAJESH-SEPTAL HYPOKINESIS/ APICAL HYPOKINESIS DOPPLER/COLOR FLOW: SEE BELOW COMMENTS: 1. LOW NORMAL LEFT VENTRICULAR EJECTION FRACTION 50% 2. RAJESH SEPTAL HYPOKINESIS (DISTAL) 3. LEFT ATRIAL ENLARGEMENT 4. MODERATE TRICUSPID REGURGITATION 5. SEVERE MITRAL ANNULAR CALCIFICATION WITH MILD MITRAL STENOSIS, AND MILD TO MODERATE MITRAL REGURGITATION 6. SEVERE PULMONARY HYPERTENSION WITH RIGHT VENTRICULAR SYSTOLIC PRESSURE GREATER THAN 60 mmHg 7. DIASTOLIC DYSFUNCTION TECHNOLOGIST: ELLEN STANTON
[2022-12-06] MEDS ORDERED: Levofloxacin 750mg IV 750 MG/150 ML BAG IV SCH (09:01)
[2022-12-06 09:15] LABS: Protime INR 0.99
[2022-12-06] MEDS: METHYLPREDNISOLONE 125 MG INJ IV SCH ×2 (09:58→21:19)
[2022-12-06] MEDS: FUROSEMIDE 20 MG/ 2ML VIAL IV SCH ×2 (09:58→21:19)
[2022-12-06] MEDS: ACETAMINOPHEN 500 MG TAB PO PRN ×2 (16:26→21:19)
--- NOTE | 2022-12-06 21:19 | P.PN ---
Subjective Date of Service: 12/06/22 Primary Care Provider: Grzegorz Chief Complaint: Chest Pain, Anemia Subjective: No new changes Patient was being treated for ovarian cancer. She start developing recurrent pleural effusions with the chemotherapy for cancer Review of Systems 10-point ROS is otherwise unremarkable Respiratory: Shortness of Breath Physical Examination - Vital Signs Temperature: 98.4 F Blood Pressure: 140/66 Pulse: 105 Respirations: 24 Pulse Ox (%): 98 - Physical Exam General: Alert, In no apparent distress HEENT: Atraumatic, PERRLA, EOMI Neck: Supple, JVD not distended Respiratory: Clear to auscultation bilaterally, Normal air movement Cardiovascular: Regular rate/rhythm, Normal S1 S2 Gastrointestinal: Normal bowel sounds, No tenderness Musculoskeletal: No tenderness Integumentary: No rashes Neurological: Normal speech, Normal tone, Normal affect Lymphatics: No axilla or inguinal lymphadenopathy Assessment And Plan - Current Problems (Diagnosis) (1) Bilateral pleural effusion Current Visit: Yes Status: Acute Plan: Have discussed the patient with Dr. Duggan. Feels this is more fibrosis. Will hold the thoracentesis. Start steroids. (2) CHF (congestive heart failure) Current Visit: Yes Status: Acute Plan: normal ef. Will continue monitoring her fluid balance Qualifiers: Heart failure type: diastolic Heart failure chronicity: chronic Qualified Code(s): I50.32 - Chronic diastolic (congestive) heart failure (3) Ovarian cancer in remission Current Visit: Yes Status: Chronic Plan: will need to check the office records if she has completed treatment Discharge Plan: Home Plan to discharge in: Greater than 2 days - Code Status/Comfort Care Code Status Assessed: No Physician Review: Patient Assessed, Agree with Above Assessment and Plan Critical Care: No Time Spent Managing PTS Care (In Minutes): 25
[2022-12-07 04:40] LABS: Potassium 3.9 mmol/L (3.5-5.1)
[2022-12-07 04:41] LABS: Absolute Lymphocytes (CBC) 0.6 K/uL (0.7-4.9); Hematocrit 22.1 % (36.0-45.0); Lymphocytes % 13.4 % (15.3-44.8); MCV 84.3 fL (80-100); MPV 7.2 fL (7.6-11.3); RBC Red Blood Cell Count 2.62 M/uL (3.86-4.86)
[2022-12-07 05:35] LABS: Anisocytosis 1+; Blood Morphology Comment NOTED (NOT SEEN); Platelet Estimate ADEQ
[2022-12-07] MEDS ORDERED: ALPRAZOLAM 0.25 MG TABLET PO PRN (07:59)
--- NOTE | 2022-12-07 08:02 | P.PN ---
Subjective Date of Service: 12/07/22 Primary Care Provider: Grzegorz Chief Complaint: Chest Pain, Anemia Patient has sob and that causes anxiety in the middle of the night Review of Systems 10-point ROS is otherwise unremarkable Respiratory: Shortness of Breath Physical Examination - Vital Signs Temperature: 97.8 F Blood Pressure: 123/66 Pulse: 115 Respirations: 19 Pulse Ox (%): 95 - Physical Exam General: Alert, In no apparent distress HEENT: Atraumatic, PERRLA, EOMI Neck: Supple, JVD not distended Respiratory: Clear to auscultation bilaterally, Normal air movement Cardiovascular: Regular rate/rhythm, Normal S1 S2 Gastrointestinal: Normal bowel sounds, No tenderness Musculoskeletal: No tenderness Integumentary: No rashes Neurological: Normal speech, Normal tone, Normal affect Lymphatics: No axilla or inguinal lymphadenopathy Assessment And Plan - Current Problems (Diagnosis) (1) Bilateral pleural effusion Current Visit: Yes Status: Acute Plan: Have discussed the patient with Dr. Duggan. Feels this is more fibrosis. Will hold the thoracentesis. Start steroids. (2) CHF (congestive heart failure) Current Visit: Yes Status: Acute Plan: normal ef. Will continue monitoring her fluid balance Qualifiers: Heart failure type: diastolic Heart failure chronicity: chronic Qualified Code(s): I50.32 - Chronic diastolic (congestive) heart failure (3) Ovarian cancer in remission Current Visit: Yes Status: Chronic Plan: will need to check the office records if she has completed treatment (4) Afib Current Visit: Yes Status: Acute Qualifiers: Atrial fibrillation type: paroxysmal Qualified Code(s): I48.0 - Paroxysmal atrial fibrillation (5) Anxiety Current Visit: No Status: Acute Plan: will give low dose alprazolam. for the anxiety. Discharge Plan: Home Plan to discharge in: Greater than 2 days - Code Status/Comfort Care Code Status Assessed: No Physician Review: Patient Assessed, Agree with Above Assessment and Plan Critical Care: No Time Spent Managing PTS Care (In Minutes): 20
--- NOTE | 2022-12-07 08:34 | P.CNS ---
Date of Consult: 12/06/22 Reason for Consult: Bilateral pneumonia hypoxemia pleural effusion Primary Care Provider: Grzegorz Chief Complaint: Chest Pain, Anemia History of Present Illness: Patient is 87 years of age Kinyarwanda-speaking only past medical history of de mentia hypertension heart failure metastatic ovarian cancer she has had breast cancer with malignant pleural effusion treated with chemotherapy had a chest tube placed. From the emergency room not feeling well shortness of breath also anemic chest CT shows extensive bilateral infiltrate with bilateral pleural effusion right greater than left appears to be short of breath on oxygen very comfortable Patient has a left-sided chest tube in place Allergies Penicillins Allergy (Intermediate, Verified 05/10/22 09:20) Itching/Hives/Rash Home Medications: Losartan Potassium [Cozaar] 100 mg PO DAILY WITH BREAKFAST 09/16/16 Omeprazole 20 mg PO DAILY 09/16/16 Anastrozole [Arimidex*] 1 mg PO BEDTIME 02/15/22 Aspirin 81 mg PO DAILY 05/10/22 Memantine HCl [Namenda] 5 mg PO BID 05/10/22 Amlodipine Besylate [Norvasc] 5 mg PO DAILY 05/30/22 Atorvastatin Calcium [Lipitor] 40 mg PO BEDTIME 05/30/22 Cyclobenzaprine [Flexeril*] 10 mg PO BEDTIME 05/30/22 Trazodone HCl 50 mg PO BEDTIME 05/30/22 - Past Medical/Surgical History Diabetic: No -: GERD -: HTN -: Rt breast Cancer with chemo-2016 -: dementia -: 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 - Family History Mother Medical History: Heart disease Father Medical History: Lung disease, GI disease, Cancer - Social History Smoking Status: Unknown if ever smoked Alcohol use: No CD- Drugs: No Caffeine use: Yes Place of Residence: Home Review of Systems is unable to be obtained Physical Examination Temp Pulse Resp BP Pulse Ox 97.8 F 115 H 19 123/66 95 12/07/22 08:02 12/07/22 08:02 12/07/22 08:02 12/07/22 08:02 12/07/22 08:02 General: Alert, Mild distress Respiratory: Expiratory wheezes Cardiovascular: No edema, Regular rate/rhythm, Normal S1 S2 Gastrointestinal: Normal bowel sounds, Soft and benign Integumentary: No rashes, No breakdown - Problems (1) Acute and chronic respiratory failure with hypoxia Current Visit: Yes Status: Acute Plan: Patient is 87 years of age with malignant pleural effusion bilateral pulmonary infiltrates with acute lung injury patient is on hormonal therapy at home bilateral pulmonary infiltrate severe anemia patient has had 2 units of blood packed cells were transfused vital signs stable on 4 L of nasal cannula oxygen is a left-sided chest tube in place started patient on steroids he is to p.o. antibiotic diuretic is no fever chest x-ray ordered patient has severe pulmonary hypertension with diastolic heart failure
[2022-12-07] MEDS: FUROSEMIDE 20 MG/ 2ML VIAL IV SCH ×2 (08:46→20:38)
[2022-12-07] MEDS: METHYLPREDNISOLONE 40 MG INJ IV SCH ×2 (08:46→20:39)
[2022-12-07] MEDS ORDERED: POTASSIUM 25 MEQ EFFERV TAB PO ONE (09:00)
--- NOTE | 2022-12-07 11:19 | RAD REPORT ---
EXAM DESCRIPTION: RAD - Chest Single View - 12/07/2022 10:10 am CLINICAL HISTORY: Pneumonia Chest pain. COMPARISON: Chest Single View dated 12/03/2022; Chest Single View dated 10/07/2022; Chest Single View dated 09/19/2022; Chest Single View dated 07/18/2022 FINDINGS: Portable technique limits examination quality. Extensive bilateral pulmonary opacities are present likely pulmonary edema or pneumonia and appearing mildly progressive since 12/03/2022 study. Heart size is mildly enlarged. Multi lead pacer device. L eft port catheter. IMPRESSION: Mild worsening in lung aeration seen since comparative examination.
--- NOTE | 2022-12-07 19:36 | PN ---
Date of Progress Note: 12/07/2022 Subjective: Seen by bedside. She has mild shortness of breath on exertion and orthopnea. Review of Systems: No nausea, vomiting, diarrhea. No dysuria, polyuria, or urinary urgency. No skin rash. All other s ystems reviewed are negative. Physical Examination: Vital Signs: Reviewed. Head and Neck: Pupils are equal, reactive to light. Intact eye movements. Positive JVD. No cervic al lymphadenopathy. Neck is supple. Thyroid is not enlarged. Lungs: She has crackles in both lung bases. No accessory muscle use or muscle retraction. HEART: Regular. No extra sounds. Abdomen: Soft, nontender. Bowel sounds positive. No organomegaly. No masses or hernia. No rigidi ty or rebound. Extremities: No clubbing, cyanosis, but she has edema. Skin: No rash. Neurologic: Alert, awake, without acute focal deficits appreciated. Lymph Nodes: No cervical lymphadenopathy. Investigation: BUN 37, creatinine 1.3. Peak troponins 860. Assessment/recommendations: 1.Coronary artery disease with elevated troponin. There is no active chest pain. She has severe co ronary artery disease, which is amenable to intervention. However, patient has metastatic ovarian ca ncer and they elected not to do aggressive measures, so at this point medical management with beta-bl ocker and coronary vasodilators as well as aspirin is recommended. 2.Acute on chronic systolic heart failure exacerbation. Agree with diuresis. Monitor BUN, creatini ne, and electrolytes. SR/MODL Voice ID: [id number] Report ID: [id number]
[2022-12-07] MEDS: ACETAMINOPHEN 500 MG TAB PO PRN (20:38)
--- NOTE | 2022-12-08 07:32 | RAD REPORT ---
EXAM DESCRIPTION: RAD - Chest Single View - 12/08/2022 5:39 am CLINICAL HISTORY: Pneumonia COMPARISON: Portable December 07, portable December 03 TECHNIQUE: AP portable chest image was obtained 12/08/2022 5:39 am . FINDINGS: Lung volumes have improved compared to the 2 prior studies. Right greater than left airspa ce opacification is present. Mild improvement is noted on the left. When adjusting for the difference s in inspiratory effort, right-sided pneumonia is not clearly different. Right pleural effusion is evident. Heart size is upper normal. Left-sided Port-A-Cath is in place. Ri ght-sided pacemaker remains in place. No pneumothorax. No acute bony abnormality seen. No acute aorti c findings suspected. IMPRESSION: Left-sided pneumonia findings have improved. Right-sided pneumonia is probably stable. Lung volumes have improved from prior examination. Right-sided pleural effusion is still present.
[2022-12-08] MEDS ORDERED: levoFLOXacin 750 MG TAB PO SCH (08:00)
--- NOTE | 2022-12-08 08:01 | P.PN ---
Subjective Date of Service: 12/08/22 Primary Care Provider: Grzegorz Chief Complaint: Chest Pain, Anemia Patient had some back pain in the evening. she has a port on her left side and is requesting it drained Review of Systems 10-point ROS is otherwise unremarkable Respiratory: Shortness of Breath Physical Examination - Vital Signs Temperature: 97.3 F Blood Pressure: 119/73 Pulse: 115 Respirations: 20 Pulse Ox (%): 97 - Physical Exam General: Alert, In no apparent distress HEENT: Atraumatic, PERRLA, EOMI Neck: Supple, JVD not distended Respiratory: Clear to auscultation bilaterally, Normal air movement Cardiovascular: Regular rate/rhythm, Normal S1 S2 Gastrointestinal: Normal bowel sounds, No tenderness Musculoskeletal: No tenderness Integumentary: No rashes Neurological: Normal speech, Normal tone, Normal affect Lymphatics: No axilla or inguinal lymphadenopathy Assessment And Plan - Current Problems (Diagnosis) (1) Bilateral pleural effusion Current Visit: Yes Status: Acute Plan: Have discussed the patient with Dr. Duggan. Feels this is more fibrosis. Will hold the thoracentesis. Start steroids. 12/08 consider draining the fluid. Will discuss with Dr. Duggan (2) CHF (congestive heart failure) Current Visit: Yes Status: Acute Plan: normal ef. Will continue monitoring her fluid balance Qualifiers: Heart failure type: diastolic Heart failure chronicity: chronic Qualified Code(s): I50.32 - Chronic diastolic (congestive) heart failure (3) Ovarian cancer in remission Current Visit: Yes Status: Chronic Plan: will need to check the office records if she has completed treatment (4) Afib Current Visit: Yes Status: Acute Qualifiers: Atrial fibrillation type: paroxysmal Qualified Code(s): I48.0 - Paroxysmal atrial fibrillation (5) Anxiety Current Visit: No Status: Acute Plan: will give low dose alprazolam. for the anxiety. Discharge Plan: Home Plan to discharge in: Greater than 2 days - Code Status/Comfort Care Code Status Assessed: No Physician Review: Patient Assessed, Agree with Above Assessment and Plan Critical Care: No Time Spent Managing PTS Care (In Minutes): 25
--- NOTE | 2022-12-08 08:41 | P.PN ---
Subjective Date of Service: 12/08/22 Primary Care Provider: Grzegorz Chief Complaint: Bilateral pneumonia with bilateral pleural effusion Subjective: Improving (Patient is improving no new complaints she does have a left-sided chest tube Pleurx catheter has some pleural effusion on the right side looks well is on some nasal cannula oxygen) Review of Systems is unable to be obtained Physical Examination - Vital Signs Temperature: 97.3 F Blood Pressure: 119/73 Pulse: 115 Respirations: 20 Pulse Ox (%): 97 - Physical Exam General: Alert, Cooperative Respiratory: Clear to auscultation bilaterally Cardiovascular: No edema, Regular rate/rhythm Assessment And Plan - Current Problems (Diagnosis) (1) Acute and chronic respiratory failure with hypoxia Current Visit: Yes Status: Acute Plan: Patient is 87 years of age has bilateral interstitial changes probably had some ARDS previously has bilateral pleural effusion has a Pleurx catheter on the left side haziness on the right side she is currently stable does have anemia currently is on chemotherapy thoracentesis right now probably not indicated she is not in any distress he will be palliative anyway recommend discharge on spironolactone and Lasix may have been due to diastolic dysfunction low-dose pr ednisone 10 mg twice a day oxygenation Physician Review: Patient Assessed, Agree with Above Assessment and Plan
[2022-12-08] MEDS ORDERED: POTASSIUM CL SA 10 MEQ TAB PO ONE (09:00)
[2022-12-08] MEDS: SPIRONOLACTONE 25 MG TABLET PO SCH ×2 (09:07→21:19)
[2022-12-08] MEDS: FUROSEMIDE 20 MG TABLET PO SCH (09:12)
[2022-12-08] MEDS: predniSONE 20 MG TAB PO SCH ×2 (09:13→21:19)
[2022-12-08] MEDS: ACETAMINOPHEN 500 MG TAB PO PRN ×2 (11:09→21:19)
[2022-12-09 07:37] LABS: Albumin 2.8 g/dL (3.4-5.0); Bilirubin Total 1.3 mg/dL (0.2-1.0); Potassium 4.1 mmol/L (3.5-5.1); Protein, Total 5.9 g/dL (6.4-8.2)
[2022-12-09 08:05] LABS: Absolute Lymphocytes (CBC) 1.3 K/uL (0.7-4.9); Hematocrit 23.3 % (36.0-45.0); Lymphocytes % 17.3 % (15.3-44.8); MCV 85.4 fL (80-100); MPV 7.4 fL (7.6-11.3); RBC Red Blood Cell Count 2.73 M/uL (3.86-4.86)
[2022-12-09] MEDS: SPIRONOLACTONE 25 MG TABLET PO SCH (08:45)
[2022-12-09] MEDS: FUROSEMIDE 20 MG TABLET PO SCH (08:46)
[2022-12-09] MEDS: predniSONE 20 MG TAB PO SCH (08:46)
[2022-12-09] MEDS ORDERED: NA CHLORIDE 0.9% 250 ML ONE (10:04)
[2022-12-09 11:08] LABS: Platelet Estimate DECR
[2022-12-09 11:09] LABS: Anisocytosis 1+; Blood Morphology Comment NOTED (NOT SEEN); Hypochromasia 1+; Poikilocytosis 1+; Polychromasia 1+; Target Cells FEW
--- NOTE | 2022-12-09 13:07 | P.PN ---
Subjective Date of Service: 12/09/22 Primary Care Provider: Grzegorz Chief Complaint: Bilateral pneumonia with bilateral pleural effusion Subjective: No new changes plans on discharge. Will check the anemia before discharge Review of Systems 10-point ROS is otherwise unremarkable Physical Examination - Vital Signs Temperature: 97.5 F Blood Pressure: 137/67 Pulse: 102 Respirations: 16 Pulse Ox (%): 96 - Physical Exam General: Alert, In no apparent distress HEENT: Atraumatic, PERRLA, EOMI Neck: Supple, JVD not distended Respiratory: Clear to auscultation bilaterally, Normal air movement Cardiovascular: Regular rate/rhythm, Normal S1 S2 Gastrointestinal: Normal bowel sounds, No tenderness Musculoskeletal: No tenderness Integumentary: No rashes Neurological: Normal speech, Normal tone, Normal affect Lymphatics: No axilla or inguinal lymphadenopathy Assessment And Plan - Current Problems (Diagnosis) (1) Bilateral pleural effusion Current Visit: Yes Status: Acute Plan: Have discussed the patient with Dr. Duggan. Feels this is more fibrosis. Will hold the thoracentesis. Start steroids. 12/08 consider draining the fluid. Will discuss with Dr. Duggan (2) CHF (congestive heart failure) Current Visit: Yes Status: Acute Plan: normal ef. Will continue monitoring her fluid balance Qualifiers: Heart failure type: diastolic Heart failure chronicity: chronic Qualified Code(s): I50.32 - Chronic diastolic (congestive) heart failure (3) Ovarian cancer in remission Current Visit: Yes Status: Chronic Plan: will need to check the office records if she has completed treatment (4) Afib Current Visit: Yes Status: Acute Qualifiers: Atrial fibrillation type: paroxysmal Qualified Code(s): I48.0 - Paroxysmal atrial fibrillation (5) Anxiety Current Visit: No Status: Acute Plan: will give low dose alprazolam. for the anxiety. Discharge Plan: Home - Code Status/Comfort Care Code Status Assessed: No Physician Review: Patient Assessed, Agree with Above Assessment and Plan Critical Care: No Time Spent Managing PTS Care (In Minutes): 25
[2022-12-09] MEDS: ACETAMINOPHEN 500 MG TAB PO PRN (13:15)
[2022-12-09 16:13] VITALS: BP 140/72; TEMP 98
--- NOTE | 2022-12-09 17:25 | P.DS ---
Admission Date: 12/04/22 Discharge Date: 12/09/22 Primary Care Provider: Grzegorz Disposition: ROUTINE DISCHARGE Discharge Condition: FAIR Reason for Admission: Bilateral pneumonia with bilateral pleural effusion - Problems (1) Bilateral pleural effusion Current Visit: Yes Status: Acute (2) CHF (congestive heart failure) Current Visit: Yes Status: Acute Qualifiers: Heart failure type: diastolic Heart failure chronicity: chronic Qualified Code(s): I50.32 - Chronic diastolic (congestive) heart failure (3) Ovarian cancer in remission Current Visit: Yes Status: Chronic (4) Afib Current Visit: Yes Status: Acute Qualifiers: Atrial fibrillation type: paroxysmal Qualified Code(s): I48.0 - Paroxysmal atrial fibrillation (5) Anxiety Current Visit: No Status: Acute Brief History of Present Illness: Patient was admitted for pleural effusion and bilateral pneumonia. She has been havin recurrent effusions after her ovarian cancer. Hospital Course: Patient is improving. she was seen by Dr. Duggan. . Has recurrent Malignant plerual effusions. she has a drain. Was diuresisi. 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 May be a good hospice candidat. Will have her discuss with Mrs Gaston Vital Signs/Physical Exam: Temp Pulse Resp BP Pulse Ox 98 F 116 H 14 140/72 95 12/09/22 16:00 12/09/22 16:00 12/09/22 16:00 12/09/22 16:00 12/09/22 16:00 General: Alert, In no apparent distress HEENT: Atraumatic, PERRLA, EOMI Neck: Supple, JVD not distended Respiratory: Clear to auscultation bilaterally, Normal air movement Cardiovascular: Regular rate/rhythm, Normal S1 S2 Gastrointestinal: Normal bowel sounds, No tenderness Musculoskeletal: No tenderness Integumentary: No rashes Neurological: Normal speech, Normal tone, Normal affect Lymphatics: No axilla or inguinal lymphadenopathy Laboratory Data at Discharge: WBC 7.70 K/uL (4.3-10.9) 12/09/22 06:55 Hgb 7.5 g/dL (12.0-15.0) L 12/09/22 06:55 Hct 23.3 % (36.0-45.0) L 12/09/22 06:55 Plt Count 136 K/uL (152-406) L 12/09/22 06:55 PT 10.9 SECONDS (9.5-12.5) 12/06/22 08:53 INR 0.99 12/06/22 08:53 APTT 25.7 SECONDS (24.3-36.9) 12/06/22 09:48 Sodium 139 mmol/L (136-145) 12/09/22 06:55 Potassium 4.1 mmol/L (3.5-5.1) 12/09/22 06:55 BUN 52 mg/dL (7-18) H 12/09/22 06:55 Creatinine 1.05 mg/dL (0.55-1.02) H 12/09/22 06:55 Glucose 139 mg/dL (74-106) H 12/09/22 06:55 Phosphorus 3.1 mg/dL (2.5-4.9) 12/05/22 03:09 Magnesium 2.2 mg/dL (1.6-2.4) 12/05/22 03:09 Total Bilirubin 1.3 mg/dL (0.2-1.0) H 12/09/22 06:55 AST 23 U/L (15-37) 12/09/22 06:55 ALT 15 U/L (13-56) 12/09/22 06:55 Alkaline Phosphatase 49 U/L (45-117) 12/09/22 06:55 Triglycerides 72 mg/dL (<150) 12/05/22 03:09 Cholesterol 124 mg/dL (<200) 12/05/22 03:09 HDL Cholesterol 65 mg/dL (40-60) H 12/05/22 03:09 Cholesterol/HDL Ratio 1.91 12/05/22 03:09 Home Medications: Losartan Potassium [Cozaar] 100 mg PO DAILY WITH BREAKFAST 09/16/16 Omeprazole 20 mg PO DAILY 09/16/16 Anastrozole [Arimidex*] 1 mg PO BEDTIME 02/15/22 Aspirin 81 mg PO DAILY 05/10/22 Memantine HCl [Namenda] 5 mg PO BID 05/10/22 Amlodipine Besylate [Norvasc] 5 mg PO DAILY 05/30/22 Atorvastatin Calcium [Lipitor] 40 mg PO BEDTIME 05/30/22 Cyclobenzaprine [Flexeril*] 10 mg PO BEDTIME 05/30/22 Trazodone HCl 50 mg PO BEDTIME 05/30/22 Furosemide [Lasix] 40 mg PO DAILY 30 Days #30 12/09/22 New Medications: Furosemide [Lasix] 40 mg PO DAILY 30 Days #30 Diet: ADA Activity: Ad tegan Followup: Yadira Gaston FNP [facility] [[employer] PROFESSIONAL] - 1 Week Time spent managing pt's care (in minutes): 25
[2022-12-09 17:41] LABS: Hematocrit 30.7 % (36.0-45.0)
[2022-12-09 18:29] VITALS: O2SAT 95
== END 2022-12-09 17:51 | disposition home health service (06) | DRG 754 ==
LOC: ER 22:28 → ERHOLD 12-04 04:25 → 2ND 12-04 05:00
PROVIDERS: ADMIT Internal Medicine; ATTEND Internal Medicine
PROC: 30233N1 Transfusion of Nonautologous Red Blood Cells into Peripheral Vein, Percutaneous Approach (ICD-10-PCS; principal; 2022-12-04)
DX: C56.9 Malignant neoplasm of unspecified ovary (principal); J18.9 Pneumonia, unspecified organism; J96.21 Acute and chronic respiratory failure with hypoxia; J91.0 Malignant pleural effusion; C78.00 Secondary malignant neoplasm of unspecified lung; C79.81 Secondary malignant neoplasm of breast; C80.0 Disseminated malignant neoplasm, unspecified; I25.110 Atherosclerotic heart disease of native coronary artery with unstable angina pectoris; I50.32 Chronic diastolic (congestive) heart failure; I11.0 Hypertensive heart disease with heart failure; K21.9 Gastro-esophageal reflux disease without esophagitis; D64.81 Anemia due to antineoplastic chemotherapy; F41.9 Anxiety disorder, unspecified; I48.0 Paroxysmal atrial fibrillation; I27.20 Pulmonary hypertension, unspecified; F03.90 Unspecified dementia, unspecified severity, without behavioral disturbance, psychotic disturbance, mood disturbance, and anxiety; R77.8 Other specified abnormalities of plasma proteins; Z66 Do not resuscitate; Z88.0 Allergy status to penicillin; Z85.42 Personal history of malignant neoplasm of other parts of uterus; Z79.82 Long term (current) use of aspirin; Z90.49 Acquired absence of other specified parts of digestive tract; Z79.899 Other long term (current) drug therapy; Z20.822 Contact with and (suspected) exposure to COVID-19
CPT/HCPCS: 36415; 71045; 71275; 80048; 80053; 80061; 82607; 82728; 82747; 83540; 83735; 83880; 84100; 84443; 84466; 84484; 85014; 85018; 85025; 85379; 85610; 85730; 86850; 86900; 86901; 87811; 93005; 93306; 94760; 96374; 96375; 99285; J1940; J2270; J2405; J2543; J2920; J2930; J7040; J7050; J7512; J7613; P9016; Q9967

== ENCOUNTER 2022-12-24 12:17 | Emergency (ER) | payer OTHER ==
--- NOTE | 2022-12-24 13:59 | RAD REPORT ---
EXAM DESCRIPTION: [facility] Single View12/24/2022 1:43 pm CLINICAL HISTORY: Shortness of breath COMPARISON: November 2022 FINDINGS: [id number] bilateral pulmonary opacities. Small to moderate bilateral pleural effusions. Heart is mildly enlarged. Pacemaker leads in place. Central venous catheter with its tip in the super ior vena cava IMPRESSION: These findings probably represent CHF
--- OUTSIDE RECORDS SUMMARY | 2022-12-24 14:14 | XMS REPORT | Continuity of Care Document ---
:1935 Author Organization [facility] t Address [address] [place] [address] Care Team Providers Name Role Phone Frank Putnam Attending Clinician Unavailable ROMIE ROSSI Attending Clinician Unavailable _[facility]_Andre_J Attending Clinician Unavailable Donis Cruz MD Attending Clinician [phone] DONIS CRUZ Attending Clinician Unavailable DONIS CRUZ Attending Clinician Unavailable Jordan Moore MD Attending Clinician JORDAN MOORE Attending Clinician Unavailable Gaurang Melendez MD Attending Clinician [phone] NITIN MANE Attending Clinician Unavailable Jordan Moore MD Attending Clinician Romie Rossi MD Attending Clinician Hetal RUST, Lb Attending Clinician Benita RUST, Minal Attending Clinician Stephen RUST, Leticia Rosa Attending Clinician [phone] MINAL JOY Attending Clinician Unavailable Cori RUST, Jimy Attending Clinician Markus RUST, Maria Munroe Attending Clinician Cherry RUST, Brii Warren Attending Clinician [phone] Bere RUST, Carolann Olivas Attending Clinician [phone] CAROLANN JIANG Attending Clinician Unavailable Jean-Paul RUST, Srinivasan Pride Attending Clinician Nitin Mane Attending Clinician Virtual, Surgeon Attending Clinician Unavailable ISAIAS SHARPE Attending Clinician Unavailable 1, [facility] Room Attending Clinician Unavailable CAYETANO WINTERS Attending Clinician Unavailable CHAPIS MUNROE Attending Clinician Unavailable Chapis Munroe Attending Clinician Sosa Hodge Attending Clinician Canales_M Attending Clinician Unavailable Ariella Shaffer Attending Clinician Unavailable Love-Mbayo_A_AH Attending Clinician Unavailable Iliana Hollins Attending Clinician [phone] Frank Putnam Admitting Clinician Unavailable Yadira Gaston Admitting Clinician Unavailable _[facility]_Andre_Arthur Admitting Clinician Unavailable JORDAN MOORE Admitting Clinician Unavailable LETICIA ENCISO Admitting Clinician Unavailable JIMY PEPPER Admitting Clinician Unavailable SOSA HODGE Admitting Clinician Unavailable Sosa Hodge Admitting Clinician Canales_M Admitting Clinician Unavailable Love-Mbayo_A_AH Admitting Clinician Unavailable Payers Payer Name Policy Type Policy Number Effective Date Expiration Date [facility] [id number] 2021 MGD MCR 00:00:00 [employer] HEALTH [id number] 2021 OON 00:00:00 [employer] HEALTH [id number] [employer] HEALTH [id number] 2021 (MEDICARE 00:00:00 REPLACEMENT HMO) [place] [id number] [employer] 00:00:00 [employer] OF [place] - [id number] 2019 [employer] 00:00:00 (MEDICARE REPLACEMENT/ADVAN TAGE - HMO) Well[employer] C1 [id number] [facility] Problems Condition Condition Condition Status Onset Resolution Last Treating Co mments Source Name Details Category Date Date Treatment Clinician Date Acute Acute Disease Active 2021-[address] [facility] exacerbati exacerbati 1-18 [facility] [facility] on of CHF on of CHF 00:00: Medi melchor (congestiv (congestiv 00 Ce nter e heart e heart failure) failure) Sepsis Sepsis Disease Active 2021-[address] [facility] 0-31 [facility] 00:[facility]: Medical 00 [place] Atrial Atrial Disease Active 2021-[address] fibrillati fibrillati 0-31 [facility] [facility] on on 00:00: Medical 00 [place] Lactic Lactic Disease Active 2021-[address] acidosis acidosis 0-31 [facility] 00:00: Medical 00 [place] SOB SOB Disease Active 2021-[address] (shortness (shortness 0-31 [place] of breath) of breath) 00:00: Me dical 00 Center Acute on Acute on Disease Active 2021-11 [facility] chronic chronic 0[facility]31 [facility] respirator respirator 00:00: Me dical y failure y failure 00 Cent er Coronary Coronary Disease Active 2021-[facility] artery artery 0-31 [facility] disease disease 00:00: Medical 00 [place] 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 0-31 [facility] failure failure 00:00: Medical 00 Center Hypokalemi Hypokalemi Disease Active 2021-11 [facility] a 0-11 College 00:00: of 00 Medicin e Port-A-Cat Port-A-Cat Disease Active 2021-11 [facility] h in place h in place 0-05 Co llege 00:00: of 00 Medicin e 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 0-05 College disease disease 00:00: of 00 Medicin e Encounter Encounter Disease Active 2021-11 [place] [facility] for for 0-05 College antineopla antineopla 00:00: of stic stic 00 Medicin chemothera chemothera e py py 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 914 Colleg e of both of both 00:00: of ovaries ovaries 00 Medicin e 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 9-14 College disease disease 00:00: of involving involving 00 Medi rafael torres martinez torres martinez e coronary coronary artery of artery of torres martinez torres martinez heart heart without without angina angina pectoris pectoris Congestive Congestive Disease Active [facility] heart heart 914 [facility] failure failure 00:00: of 00 Medicin e 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 14 [place] effusion effusion 00:00: of 00 Medicin e FALL FALL Diagnosis Active 2022-06-12 Mem oria Active 06-12 21:03:00 l 06/12/2022 00:00: Harish rodriguez 00 [facility] FLUID FLUID Diagnosis Active 2022-06-22 Mem oria OVERLOAD, OVERLOAD, 06-12 21:57:00 l ACUTE CHF ACUTE CHF 00:00: Cristo suárez Active 00 06/12/2022 [facility] Primary Primary Problem Active [place] [...] e Arthritis Arthritis Problem Active Halima isabel - Family 00:00: Practic 00 e FLUID FLUID Diagnosis Active 2022-06-22 Mem oria OVERLOAD, OVERLOAD, 21:57:00 l UNSPECIFIE UNSPECIFIE Dami Adhikari Active [facility] HEART HEART Diagnosis Active 2022-06-22 Mem oria FAILURE, FAILURE, 21:57:00 l UNSPECIFIE UNSPECIFIE Dami Adhikari Active [facility] Benign Benign Problem Active 2022-06-19 Sanya clementine essential essential 23:17:13 l hypertensi hypertensi He rmann on on (disorder) (disorder) Active Problem 06/19/2022 [facility] Dyslipidem Dyslipide Problem Active 2022-06-19 Memoria ia reshma 23:17:13 l (disorder) (disorder) He rmann Active Problem 06/19/2022 [facility] 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 He rmann the heart the heart (disorder) (disorder) Active Problem 06/19/2022 [facility] Arthritis Arthritis Problem Active Com mon of right of knee, [facility] knee right - [facility] [id number] Right Problem Active Common sciatic [facility] nerve pain - [facility] [id number] Primary Problem Active Comm on osteoarthr Spirit itis of - [facility] right knee [facility] [id number] Pain in Problem Active Common joint of Spirit right knee [facility] Allergies, Adverse Reactions, Alerts Allergy Allergy Status Severity Reaction(s) Onset Inactive Treating Comm ents Source Name Type Date Date Clinician PENICILL Allergy Active [facility] 08-18 Lu 00:00: Medical 00 Center Penicill Propensi Active [facility] in ty to 08-18 adverse 00:00: Medical reaction 00 Center s Penicill Propensi Active Pt does [facility] r ins ty to 08-03 [facility] adverse 00:00: remember. of reaction 00 Medicin s to e drug Penicill DA Active [place] [facility] ins 05-18 Clear 00:00: Qiu 00 [facility] NO KNOWN Allergy Active [facility] penicill penicill Active [facility] a in in [place] PENICILL Allergy Active [facility] INS to Family substanc Practic e e Social History Social Habit Start Date Stop Date Quantity Comments Source History SDOH [facility] Alcohol Std Drinks Medica l Center History SDOH [facility] Alcohol Binge Medical Farn[address] ter History SDOH [facility] Alcohol Comment Medical [facility] Non-Med Medical Center History of Tobacco [facility] - Use [facility] Exposure to 2022-11-05 2022-11-15 Not sure [facility] Ld hernandez SARS-CoV-2 (event) 00:00:00 10:18:00 of Med icine Alcohol intake 2022-11-02 2022-11-[address] [facility] 00:00:00 00:00:00 non-drinker Medical Cente r (finding) History [facility] 2022-10-08 2022-10-[address] [facility] Housing Unable to 00:00:00 00:00:00 Medical Center Pay History [facility] 2022-09-20 2022-09-[address] [facility] Transport Med 00:00:00 00:00:[address] [facility] 2022-09-20 2022-09-[address] [facility] Housing Places 00:00:00 00:00:00 Medical Ce nter Lived History [facility] 2022-09-20 2022-09-[address] [facility] Housing Homeless 00:00:00 00:00:00 Medical Center Last Year History [facility] 2022-08-23 2022-08-23 0 [facility] [place] [facility] ge Physical Activity 00:00:00 00:00:00 of Medi cine DPW History [facility] 2022-08-23 2022-08-23 0 [facility] ge Physical Activity 00:00:00 00:00:00 of Medi cine MPS Tobacco use and 2022-08-18 2022-08-[address] [facility] kes exposure 00:00:00 00:00:[address] [facility] 2022-08-18 2022-08-[address] [facility] Alcohol Frequency 00:00:00 00:00:00 [facility] Center Social History 2022-06-13 2022-06-13 [facility] 19:32:18 19:32:18 Sex Assigned At [address] Zo[facility] kes 00:00:00 00:00:00 Medical Center Smoking Status Start Date Stop Date Source Never smoked tobacco [facility] ege of Medicine Medications Ordered Filled Start Stop Current Ordering Indication Dosage Frequency Signature Comments Components Source Medication Medication Date Date Medication? Clinician (SIG) Name Name OXYGEN GAS 2021-11 Yes [facility] 2-27 College 10:32: of 28 Medicin e amlodipine 2021-11 Yes 5mg Take 5 mg [facility] (NORVASC) 5 2 by mouth [place] e[place] MG tablet 10:32: daily. of Medicin e sulfamethox 2021-11- Yes 1{tbl} Take 1 [facility] azole-trime 2-27 12-31 Tablet by Co srinivas whitingoprim 00:00: 05:59 mouth two of (BACTRIM 00 :00 times Medicin DS, SEPTRA daily for e DS) 800-160 3 days. MG per tablet aspirin 81 2021-11 Yes 81mg QD Take [address] MG EC 2-14 by mouth [facility] tablet 13:11: daily. Medical 06 [place] benzonatate 2021-11 Yes 200mg Take 200 C [...] 2-14 by mouth [facility] tablet 13:11: daily. [address] benzonatate 2021-11 Yes 200mg Take 200 [...] 2-14 by mouth [facility] tablet 13:11: daily. Medical 06 [place] benzonatate 2021-11 Yes 200mg Take 200 C [...] 2-14 by mouth [facility] tablet 13:11: daily. Medical 06 [place] benzonatate 2021-11 Yes 200mg Take 200 C [...] TAKE ONE [facility] -acetaminop 2-02 (1) [facility] ([place]) 00:00: TABLET(S) o f 5-325 mg 00 BY MOUTH Medicin tablet EVERY FOUR e HOURS NEEDED FOR PAIN hydrocodone 2021-11 Yes TAKE ONE [facility] -acetaminop 2-02 (1) [facility] ([place]) 00:00: TABLET(S) o f 5-325 mg 00 BY MOUTH Medicin tablet EVERY FOUR e HOURS NEEDED FOR PAIN OXYGEN GAS 2021-11 Yes [facility] 12-18 [place] 14:41: of 39 Medicin e OXYGEN GAS 2021-11 Yes [facility] 12-18 [place] 14:41: of 39 Medicin e OXYGEN GAS 2021-11 Yes [facility] 12-18 [place] 07:53: of 36 Medicin e potassium 2021-11 [...] 2021-11 Yes TAKE ONE [facility] -acetaminop 24 (1) [facility] hen ([facility]) 00:00: TABLET(S) o f 5-325 mg 00 BY MOUTH Medicin tablet EVERY FOUR e HOURS NEEDED FOR PAIN. hydrocodone 2021-11- No TAKE ONE [facility] -acetaminop 24 12-02 (1) College hen (NORCO) 00:00: 00:00 TABLET(S) of 5-325 mg 00 :00 BY MOUTH Medicin tablet EVERY FOUR e HOURS NEEDED FOR PAIN. ondansetron 2021-11 Yes Take 1 tab [facility] (ZOFRAN) 8 1-22 by mouth Colle ge mg tablet 00:00: every 8 of 00 hours as Medicin needed e (nausea post-chemo therapy, Days 1,2, and 3) ondansetron 2021-11 Yes Take 1 tab [facility] (ZOFRAN) 8 1-22 by mouth Colle ge mg tablet 00:00: every 8 of 00 hours as Medicin needed e (nausea post-chemo therapy, Days 1,2, and 3) ondansetron 2021-11 Yes Take 1 tab [facility] (ZOFRAN) 8 1-22 by mouth Colle ge mg tablet 00:00: every 8 of 00 hours as Medicin needed e (nausea post-chemo therapy, Days 1,2, and 3) ondansetron 2021-11 Yes Take 1 tab [facility] [...] tablet daily for 30 days. metoprolol 2021-11- 25mg QD Take [address] succinate 1-22 12-22 tablet (25 [facility] (TOPROL-XL) 00:00: 23:59 mg total) Medical 25 MG 24 hr 00 :00 by mouth Cent er tablet daily for 30 days. aspirin 81 2021-11 Yes 81mg QD Take [address] MG EC 1-21 by mouth [facility] tablet 17:12: daily. [address] benzonatate 2021-11 Yes 200mg Take 200 [...] 1-21 by mouth [facility] tablet 17:12: daily. [address] benzonatate 2021-11 Yes 200mg Take 200 [...] 1-21 by mouth [facility] tablet 17:12: daily. [place] [id number] Center benzonatate 2021-11 Yes 200mg Take 200 [...] 1-21 by mouth [facility] tablet 17:12: daily. [address] benzonatate 2021-11 Yes 200mg Take 200 [...] by mouth [facility] tablet 17:12: daily. Medical Center benzonatate 2021-11 Yes 200mg Take 200 [...] Center nebulizer (four) solution times daily. bumetanide 2021-11- Yes 2mg Take 2 mg [facility] (BUMEX) 2 12-10- by mouth Colle ge MG tablet 00:00: 05:59 two times of 00 :00 daily. Medicin e bumetanide 2021-11- No 2mg Take [address] [facility] (BUMEX) 2 12-10- tablet (2 Luke s MG tablet 00:00: 23:59 mg total) Me dical 00 :00 by mouth 2 Center (two) times daily for 30 days. bumetanide 2021-11- Yes 2mg Take [address] [facility] (BUMEX) 2 12-10- tablet (2 Luke s MG tablet 00:00: 23:59 mg total) Me dical 00 :00 by mouth 2 Center (two) times daily for 30 days. bumetanide 2021-11- Yes 2mg Take [address] [facility] (BUMEX) 2 12-10- tablet (2 Luke s MG tablet 00:00: [...] 2mg Take [address] (BUMEX) 2 12-10- tablet (2 Luke s MG tablet 00:00: [...] [facility] (CRESTOR) 1-10 tablet (10 Zo[facility] 10 MG 00:00: mg total) Medical tablet 00 by mouth Center daily. rosuvastati 2021-11 Yes 10mg QD Take [address] n (CRESTOR) 1-10 tablet (10 Zo[facility] kes 10 MG 00:00: mg total) Medical tablet 00 by mouth Center daily. rosuvastati 2021-11 Yes 10mg QD Take [address] n (CRESTOR) 1-10 tablet (10 Zo[facility] kes 10 MG 00:00: mg total) Medical tablet 00 by mouth Center daily. rosuvastati 2021-11 Yes 10mg QD Take [address] n (CRESTOR) 1-10 tablet (10 Zo[place] kes 10 MG 00:00: mg total) Medical tablet 00 by mouth Center daily. rosuvastati 2021-11 Yes 10mg QD Take [address] n (CRESTOR) 1-10 tablet (10 Zo[place] kes 10 MG 00:00: mg total) Medical tablet 00 by mouth Center daily. rosuvastati 2021-11 Yes 10mg QD Take [address] n (CRESTOR) 1-10 tablet (10 Zo[place] kes 10 MG 00:00: mg total) Medical tablet 00 by mouth Center daily. rosuvastati 2021-11 Yes 10mg QD Take [address] n (CRESTOR) 1-10 tablet (10 Zo[place] kes 10 MG 00:00: mg total) Medical tablet 00 by mouth Center daily. rosuvastati 2021-11 Yes 10mg QD Take [address] n (CRESTOR) 1-10 tablet (10 Zo[place] kes 10 MG 00:00: mg total) Medical tablet 00 by mouth Center daily. rosuvastati 2021-11 Yes 10mg QD Take [address] n (CRESTOR) 1-10 tablet (10 Zo[place] kes 10 MG 00:00: mg total) Medical tablet 00 by mouth Center daily. rosuvastati 2021-11 Yes 10mg QD Take [address] n (CRESTOR) 1-10 tablet (10 Zo[place] kes 10 MG 00:00: mg total) Medical tablet 00 by mouth Center daily. rosuvastati 2021-11 Yes 10mg Take 10 mg [facility] n (CRESTOR) 1-10 by mouth [place] [facility] 10 MG 00:00: daily. of tablet 00 Medicin e rosuvastati 2021-11 Yes 10mg Take 10 mg [facility] n (CRESTOR) 1-10 by mouth [place] e[place] 10 MG 00:00: daily. of tablet 00 Medicin e aspirin 81 2021-11 Yes 81mg QD Take [address] MG EC 09 by mouth [facility] tablet 18:01: daily. Medical [...] QD Take [address] e - by mouth [facility] (PROTONIX) 18:01: daily. Medic al 40 MG 05 Center tablet potassium 2021-11 Yes 10meq Q.5D Take [address] chloride 1-09 mEq by [facility] (KLOR-CON-M 18:01: mouth 2 Med ical ) 10 MEQ CR 05 (two) Center tablet times daily. bumetanide 2021-11 No 1mg Q.5D Take [address] (BUMEX) 11-28 by mouth 2 Joss[facility] es MG tablet 16:25: 00:00 (two) Medica l 06 :00 times Center daily. bumetanide 2021-11- No 1mg Q.5D Take [address] (BUMEX) 11-28 by mouth 2 Joss[facility] es MG [...] l 06 :00 times Center daily. metoprolol 2021-11- No 25mg Q.5D Take 25 [...] daily. Medic al 26 :00 Center metoprolol 2021-11 No 25mg Q.5D Take 25 [...] 15:51: 00:00 daily. Medic al 26 :00 [place] metoprolol 2021-11- No 25mg Q.5D Take 25 [...] 15:51: 00:00 daily. Medic al 26 :00 [place] metoprolol 2021-11- No 25mg Q.5D Take [address] tartrate 11-28 by mouth 2 Luke s (LOPRESSOR) 15:51: 00:00 (two) Medi melchor 25 MG 26 :00 times Center tablet daily. predniSONE 2021-11- No 20mg QD Take [address] (DELTASONE) 11-28 by mouth Jossue es 20 MG 15:51: 00:00 daily. Medical tablet 26 :00 [place] losartan 2021-11- No 25mg QD Take [address] (COZAAR) 25 11-28 by mouth Jossue es MG tablet 15:51: 00:00 daily. Medic al 26 :00 [place] metoprolol 2021-11- No 25mg Q.5D Take [address] tartrate 11-28 by mouth 2 Luke s (LOPRESSOR) 15:51: 00:00 (two) Medi melchor 25 MG 26 :00 times Center tablet daily. predniSONE 2021-11- No 20mg QD Take [address] (DELTASONE) 11-28 by mouth Jossue es 20 MG 15:51: 00:00 daily. Medical tablet 26 :00 [place] losartan 2021-11- No 25mg QD Take [address] (COZAAR) 25 11-28 by mouth Jossue es MG tablet 15:51: 00:00 daily. Medic al 26 :00 [place] metoprolol 2021-11- No 25mg Q.5D Take [address] tartrate 11-28 by mouth 2 Luke s (LOPRESSOR) 15:51: 00:00 (two) Medi melchor 25 MG 26 :00 times Center tablet daily. predniSONE 2021-11- No 20mg QD Take [address] (DELTASONE) 11-28 by mouth Jossue es 20 MG 15:51: 00:00 daily. Medical tablet 26 :00 [place] losartan 2021-11- No 25mg QD Take [address] (COZAAR) 25 11-28 by mouth Jossue es MG tablet 15:51: 00:00 daily. Medic al 26 :00 [place] metoprolol 2021-11 No 25mg Q.5D Take [address] tartrate 11-28 by mouth 2 Luke s (LOPRESSOR) 15:51: 00:00 (two) Medi melchor 25 MG 26 :00 times Center tablet daily. predniSONE 2021-11- No 20mg QD Take [address] (DELTASONE) 11-28 by mouth Jossue es 20 MG 15:51: 00:00 daily. Medical tablet 26 :00 [place] losartan 2021-11- No 25mg QD Take [address] (COZAAR) 25 11-28 by mouth Jossue es MG tablet 15:51: 00:00 daily. Medic al 26 :00 [place] metoprolol 2021-11- No 25mg Q.5D Take [address] tartrate 11-28 by mouth 2 Luke s (LOPRESSOR) 15:51: 00:00 (two) Medi melchor 25 MG 26 :00 times Center tablet daily. predniSONE 2021-11- No 20mg QD Take [address] (DELTASONE) 11-28 by mouth Jossue es 20 MG 15:51: 00:00 daily. Medical tablet 26 :00 [place] losartan 2021-11- No 25mg QD Take [address] (COZAAR) 25 11-28 by mouth Jossue es MG tablet 15:51: 00:00 daily. Medic al 26 :00 [place] metoprolol 2021-11- No 25mg Q.5D Take [address] tartrate 11-28 by mouth 2 Luke s (LOPRESSOR) 15:51: 00:00 (two) Medi melchor 25 MG 26 :00 times Center tablet daily. predniSONE 2021-11- No 20mg QD Take [address] (DELTASONE) 11-28 by mouth Jossue es 20 MG 15:51: 00:00 daily. Medical tablet 26 :00 [place] losartan 2021-11- No 25mg QD Take [address] (COZAAR) 25 11-28 by mouth Jossue es MG tablet 15:51: 00:00 daily. Medic al 26 :00 [place] furosemide 2021-11- No [facility]mg [facility] (LASIX) 11-28 [facility] injection 13:00: 11:58 Medical 20 mg 00 :00 [place] furosemide 2021-11- No [facility]mg [facility] (LASIX) 11-28 [facility] injection 13:00: 11:58 Medical 20 mg 00 :00 [place] furosemide 2021-11- No [facility] [facility] (LASIX) 11-28 [facility] injection 13:00: 11:58 Medical 20 mg 00 :00 [place] furosemide 2021-11- No [address]mg [facility] (LASIX) 11-28 [facility] injection 13:00: 11:58 Medical 20 mg 00 :00 [place] furosemide 2021-11- No [address] [facility] (LASIX) 11-28 [facility] injection 13:00: 11:58 Medical 20 mg 00 :00 [place] furosemide 2021-11- No [address] [facility] (LASIX) 11-28 [facility] injection 13:00: 11:58 Medical 20 mg 00 :00 [place] furosemide 2021-11- No [address] [facility] (LASIX) 11-28 [facility] injection 13:00: 11:58 Medical 20 mg 00 :00 [place] furosemide 2021-11- No [address] [facility] (LASIX) 11-28 [facility] injection 13:00: 11:58 Medical 20 mg 00 :00 [place] furosemide 2021-11- No [facility]mg [facility] (LASIX) [...] Q.5D Take 1 [facility] (BUMEX) 11-28 tablet (1 [facility] MG tablet 00:00: [...] (two) times daily. OXYGEN GAS 2021-11 Yes [facility] 0-11 College 08:36: of 45 Medicin e metoprolol 2021-11 Yes 25mg Take 1 [facility] (TOPROL-XL) 0-11 Tablet by Col lege 25 MG XL 00:00: mouth of tablet 00 daily. Medicin e lidocaine-p 2021-11 Yes Apply a [place] [facility] rilocaine 0-11 [facility] ([facility]) 00:00: coating of 2.5-2.5 % 00 over the Medici n cream port site e topically 30 min prior to infusion. metoprolol 2021-11 Yes 25mg Take 1 [facility] (TOPROL-XL) 0-11 Tablet by Col lege 25 MG XL 00:00: mouth of tablet 00 daily. Medicin e lidocaine-p 2021-11 Yes Apply a [place] rilocaine 0-11 [facility] ([facility]) 00:00: coating of 2.5-2.5 % 00 over the Medici n cream port site e topically 30 min prior to infusion. metoprolol 2021-11 Yes 25mg Take 1 [place] [facility] (TOPROL-XL) 0-11 Tablet by Col lege 25 MG XL 00:00: mouth of tablet 00 daily. Medicin e lidocaine-p 2021-11 Yes Apply a [place] rilocaine 0-11 [facility] ([facility]) 00:00: coating of 2.5-2.5 % 00 over the Medici n cream port site e topically 30 min prior to infusion. metoprolol 2021-11 Yes 25mg Take 1 [place] [facility] (TOPROL-XL) 0-11 Tablet by Col lege 25 MG XL 00:00: mouth of tablet 00 daily. Medicin e lidocaine-p 2021-11 Yes Apply a [place] rilocaine 0-11 [facility] ([facility]) 00:00: coating of 2.5-2.5 % 00 over the Medici n cream port site e topically 30 min prior to infusion. metoprolol 2021-11 Yes 25mg Take 1 [place] [facility] (TOPROL-XL) 0-11 Tablet by Col lege 25 MG XL 00:00: mouth of tablet 00 daily. Medicin e OXYGEN GAS 2021-11 Yes [facility] 0-05 [place] 07:31: of 51 Medicin e Sennosides 2021-11 Yes 1{tbl} Take 1 [place] [facility] (SENNA) 8.6 0-05 Tablet by Col lege MG TABS 00:00: mouth of 00 daily. Medicin e Sennosides 2021-11 Yes 1{tbl} Take 1 [place] [facility] (SENNA) 8.6 0-05 Tablet by Col lege MG TABS 00:00: mouth of 00 daily. Medicin e Sennosides 2021-11 Yes 1{tbl} Take 1 [place] [facility] (SENNA) 8.6 0-05 Tablet by Col lege MG TABS 00:00: mouth of 00 daily. Medicin e Sennosides 2021-11 Yes 1{tbl} Take 1 [place] (SENNA) 8.6 0-05 Tablet by Col lege MG TABS 00:00: mouth of 00 daily. Medicin e hydrocodone 2021-11 Yes 1{tbl} Take 1 [facility] -acetaminop 0-05 Tablet by Col lege hen (NORCO) 00:00: mouth of 5-325 mg 00 every 4 Medicin tablet hours as e needed for Pain. Sennosides 2021-11 Yes 1{tbl} Take 1 [place] (SENNA) 8.6 0-05 Tablet by Col lege MG TABS 00:00: mouth of 00 daily. Medicin e hydrocodone 2021-11 Yes 1{tbl} Take 1 [facility] -acetaminop 0-05 Tablet by Col lege hen (NORCO) 00:00: mouth of 5-325 mg 00 every 4 Medicin tablet hours as e needed for Pain. Sennosides 2021-11 Yes 1{tbl} Take 1 [place] [facility] (SENNA) 8.6 0-05 Tablet by Col lege MG TABS 00:00: mouth of 00 daily. Medicin e aspirin 81 Yes 81mg QD Take [address] MG EC 9-30 by mouth [facility] tablet 18:28: daily. [address] aspirin 81 Yes 81mg QD Take [address] MG EC 9-30 by mouth [facility] tablet 18:28: daily. [address] aspirin 81 Yes 81mg QD Take [address] MG EC 9-30 by mouth [facility] tablet 18:28: daily. [address] magnesium Yes 400mg QD Take [address] oxide 9-29 mg by [facility]ukes (MAG-OX) 11:09: mouth Medical 400 mg 44 daily. [place] (241.3 mg magnesium) tablet metoprolol Yes 25mg [...] 11:09: daily. Medica l 44 Center potassium 2022-0 Yes 10meq Q.5D Take [address] [...] 11:09: daily. Medica l 44 Center potassium 2022-0 Yes 10meq Q.5D Take [address] [...] (two) Medical 38 times Center daily. benzonatate 2-0 Yes 200mg Take [address] (TESSALON) 9-29 mg by [facility] 200 MG 11:05: mouth 3 Medical capsule 38 (three) Center times daily as needed for Cough. bumetanide 2-0 Yes 1mg Q.5D Take [address] (BUMEX) 1 9-29 by mouth 2 Luke s MG tablet 11:05: (two) Medical 38 times Center daily. benzonatate 2022-0 Yes 200mg Take [address] (TESSALON) 9-29 [facility] MG 11:05: mouth 3 Medical capsule 38 (three) Center times daily as needed for Cough. bumetanide 0 Yes 1mg Q.5D Take [address] [facility] (BUMEX) 1 9-29 by mouth 2 [facility] tablet 11:05: (two) Medical 38 times Center daily. albuterol 2021-0 Yes 2.5mg Q.25D Take 2.[address] (PROVENTIL) 9-29 [facility] mg/0.5 11:03: nebulizati M edical mL Nebu 11 on 4 Center nebulizer (four) solution times daily. albuterol 0 Yes 2.5mg Q.25D Take 2.[address] (PROVENTIL) 9-29 [facility] 2.[facility] mg/0.5 11:03: nebulizati M edical mL Nebu 11 on 4 Center nebulizer (four) solution times daily. albuterol 0 Yes 2.5mg Q.25D Take 2.[address] (PROVENTIL) 9-29 [facility] 2.[facility] mg/0.5 11:03: nebulizati M edical mL Nebu 11 on 4 Center nebulizer (four) solution times daily. potassium 0 2021- No 10meq Take 10 [place] mykel chloride 9- 11-29 mEq by [place] (KDUR) 10 00:00: 00:00 mouth. of MEQ tablet 00 :00 Medicin e mirtazapine 0 Yes 1{tbl} Take 1 [facility] (REMERON) 9-10 Tablet by [facility] ge 15 MG 00:00: mouth of tablet 00 nightly. Medicin e mirtazapine 2021-0 Yes 1{tbl} Take 1 [facility] (REMERON) 9-10 Tablet by [facility] ge 15 MG 00:00: mouth of tablet 00 nightly. Medicin e bumetanide 2021-0 Yes 1mg Take [...] 00:00: of 00 Medicin e bumetanide 2021-0 2021- No 1mg Take 1 mg [facility] (BUMEX) 1 9-10 11-29 by mouth. [facility] MG tablet 00:00: 00:00 of 00 :00 Medicin e metoprolol 2021-0 2021- No 25mg Take 25 mg [facility] (LOPRESSOR) 9-10 10-11 by mouth. [facility] 25 MG 00:00: 00:00 of tablet 00 :00 Medicin e ondansetron 0 Yes 1{tbl} Take 1 [facility] (ZOFRAN-ODT 9-08 Tablet by Col lege ) 8 mg 00:00: mouth of disintegrat 00 every 8 Medic in ing tablet hours as e needed. ondansetron 2021-0 Yes 1{tbl} Take 1 [facility] (ZOFRAN-ODT 9-08 Tablet by Col lege ) 8 mg 00:00: mouth of disintegrat 00 every 8 Medic in ing tablet hours as e needed. rosuvastati 2021-0 Yes 5mg Take 5 mg [...] tablet 00:00: daily. of Medicin e anastrozole 0 Yes 1mg Take [...] Memoria 7-29 (Same As: l 22:00: Bumex) [place] Bumex 0 No Notes: Memoria 7-29 (Same As: l 22:00: Bumex) [place] Bumex 0 No Notes: Memoria 7-29 (Same As: l 22:00: Bumex) [place] Bumex 0 No Notes: Memoria 7-29 (Same [...] Memoria 7-29 (Same As: l 22:00: Bumex) [place] Bumex No Notes: Memoria 7-29 (Same As: l 22:00: Bumex) [place] Bumex 0 No Notes: Memoria 7-29 (Same As: l 22:00: Bumex) [place] Bumex No Notes: [facility]oria 7-29 (Same As: l 22:00: Bumex) [place] Bumex 0 No Notes: Memoria 7-29 (Same As: l 22:00: Bumex) [place] Bumex 0 No Notes: Memoria 7-29 (Same As: l 22:00: Bumex) [place] Bumex 0 No Notes: Memoria 7-29 (Same As: l 22:00: Bumex) [place] Bumex 0 No Notes: Memoria 7-29 (Same As: l 22:00: Bumex) [place] Bumex No Notes: Memoria 7-29 (Same As: l 22:00: Bumex) [place] Bumex 0 No Notes: Memoria 7-29 (Same As: l 22:00: Bumex) [place] Bumex No Notes: Memoria 7-29 (Same As: l 22:00: Bumex) [place] Bumex 0 No Notes: Memoria 7-29 (Same As: l 22:00: Bumex) [place] Bumex No Notes: Memoria 7-29 (Same As: l 22:00: Bumex) [place] Bumex 0 No Notes: Memoria 7-29 (Same As: l 22:00: Bumex) [facility] 00 Bumex No Notes: Memoria 7-29 (Same As: l 22:00: Bumex) [place] Bumex No Notes: Memoria 7-29 (Same As: l 22:00: Bumex) [place] Bumex 0 No Notes: [facility]oria 7-29 (Same As: l 22:00: Bumex) [place] Bumex 0 No Notes: Memoria 7-29 (Same As: l 22:00: Bumex) [place] Bumex 0 No Notes: [facility]oria 7-29 (Same As: l 22:00: Bumex) [place] Bumex 0 No Notes: [facility]oria 7-29 (Same As: l 22:00: Bumex) [place] Bumex 0 No Notes: Memoria 7-29 (Same As: l 22:00: Bumex) [place] Bumex 0 No Notes: Memoria 7-29 (Same As: l 22:00: Bumex) [place] Bumex 0 No Notes: [facility]oria 7-29 (Same As: l 22:00: Bumex) [place] Bumex 0 No Notes: [facility]oria 7-29 (Same As: l 22:00: Bumex) [place] Bumex 2022-0 No Notes: Memoria 7-29 (Same As: l [...] 00 cap, 0 release Refill(s), Pharmacy: [facility] [place], 162.56, cm, 06/13/22 14:35:00 CDT, Height, 80.057, kg, 06/13/22 14:35:00 CDT, Weight Micro-K 10 2021-0 Yes 10 mEq = 1 M emoria oral 7-29 cap, PO, l capsule, 16:31: BID, # 180 [facility] extended 00 cap, 0 release Refill(s), Pharmacy: [facility] [place], 162.56, cm, 06/13/22 14:35:00 CDT, Height, 80.057, kg, 06/13/22 14:35:00 CDT, Weight Micro-K 10 2021-0 Yes 10 mEq = 1 M emoria oral 7-29 cap, PO, l capsule, 16:31: BID, # 180 [facility] [place] extended 00 cap, 0 release Refill(s), Pharmacy: [facility] [place], 162.56, cm, 06/13/22 14:35:00 CDT, Height, 80.057, kg, 06/13/22 14:35:00 CDT, Weight Micro-K 10 2021-0 Yes 10 mEq = 1 M emoria oral 7-29 cap, PO, l capsule, 16:31: BID, # 180 [facility] [place] extended 00 cap, 0 release Refill(s), Pharmacy: [facility] [place], 162.56, cm, 06/13/22 14:35:00 CDT, Height, 80.057, kg, 06/13/22 14:35:00 CDT, Weight Micro-K 10 2021-0 Yes 10 mEq = 1 M emoria oral 7-29 cap, PO, l capsule, 16:31: BID, # 180 [facility] [place] extended 00 cap, 0 release Refill(s), Pharmacy: [facility] [place], 162.56, cm, 06/13/22 14:35:00 CDT, Height, 80.057, kg, 06/13/22 14:35:00 CDT, Weight Micro-K 10 2021-0 Yes 10 mEq = 1 M emoria oral 7-29 cap, PO, l capsule, 16:31: BID, # 180 [facility] [place] extended 00 cap, 0 release Refill(s), Pharmacy: [facility] [place], 162.56, cm, 06/13/22 14:35:00 CDT, Height, 80.057, kg, 06/13/22 14:35:00 CDT, Weight Micro-K 10 2021-0 Yes 10 mEq = 1 M emoria oral 7-29 cap, PO, l capsule, 16:31: BID, # 180 [facility] [place] extended 00 cap, 0 release Refill(s), Pharmacy: [facility] [place], 162.56, cm, 06/13/22 14:35:00 CDT, Height, 80.057, kg, 06/13/22 14:35:00 CDT, Weight Micro-K 10 2021-0 Yes 10 mEq = 1 M emoria oral 7-29 cap, PO, l capsule, 16:31: BID, # 180 [facility] [place] extended 00 cap, 0 release Refill(s), Pharmacy: [facility] [place], 162.56, cm, 06/13/22 14:35:00 CDT, Height, 80.057, kg, 06/13/22 14:35:00 CDT, Weight Micro-K 10 2021-0 Yes 10 mEq = 1 M emoria oral 7-29 cap, PO, l capsule, 16:31: BID, # 180 [facility] [place] extended 00 cap, 0 release Refill(s), Pharmacy: [facility] [place], 162.56, cm, 06/13/22 14:35:00 CDT, Height, 80.057, kg, 06/13/22 14:35:00 CDT, Weight Micro-K 10 2021-0 Yes 10 mEq = 1 M emoria oral 7-29 cap, PO, l capsule, 16:31: BID, # 180 [facility] [place] extended 00 cap, 0 release Refill(s), Pharmacy: [facility] [place], 162.56, cm, 06/13/22 14:35:00 CDT, Height, 80.057, kg, 06/13/22 14:35:00 CDT, Weight Micro-K 10 2021-0 Yes 10 mEq = 1 M emoria oral 7-29 cap, PO, l capsule, 16:31: BID, # 180 [facility] [place] extended 00 cap, 0 release Refill(s), Pharmacy: [facility] [place], 162.56, cm, 06/13/22 14:35:00 CDT, Height, 80.057, kg, 06/13/22 14:35:00 CDT, Weight Micro-K 10 2021-0 Yes 10 mEq = 1 M emoria oral 7-29 cap, PO, l capsule, 16:31: BID, # 180 [facility] [place] extended 00 cap, 0 release Refill(s), Pharmacy: [facility] [place], 162.56, cm, 06/13/22 14:35:00 CDT, Height, 80.057, kg, 06/13/22 14:35:00 CDT, Weight Micro-K 10 2021-0 Yes 10 mEq = 1 M emoria oral 7-29 cap, PO, l capsule, 16:31: BID, # 180 [facility] [place] extended 00 cap, 0 release Refill(s), Pharmacy: [facility] [place], 162.56, cm, 06/13/22 14:35:00 CDT, Height, 80.057, kg, 06/13/22 14:35:00 CDT, Weight Micro-K 10 2021-0 Yes 10 mEq = 1 M emoria oral 7-29 cap, PO, l capsule, 16:31: BID, # 180 [facility] [place] extended 00 cap, 0 release Refill(s), Pharmacy: [facility] [place], 162.56, cm, 06/13/22 14:35:00 CDT, Height, 80.057, kg, 06/13/22 14:35:00 CDT, Weight Micro-K 10 2021-0 Yes 10 mEq = 1 M emoria oral 7-29 cap, PO, l capsule, 16:31: BID, # 180 [facility] [place] extended 00 cap, 0 release Refill(s), Pharmacy: [facility] [place], 162.56, cm, 06/13/22 14:35:00 CDT, Height, 80.057, kg, 06/13/22 14:35:00 CDT, Weight Micro-K 10 2021-0 Yes 10 mEq = 1 M emoria oral 7-29 cap, PO, l capsule, 16:31: BID, # 180 [facility] [place] extended 00 cap, 0 release Refill(s), Pharmacy: [facility] [place], 162.56, cm, 06/13/22 14:35:00 CDT, Height, 80.057, kg, 06/13/22 14:35:00 CDT, Weight Micro-K 10 2021-0 Yes 10 mEq = 1 M emoria oral 7-29 cap, PO, l capsule, 16:31: BID, # 180 [facility] [place] extended 00 cap, 0 release Refill(s), Pharmacy: [facility] [place], 162.56, cm, 06/13/22 14:35:00 CDT, Height, 80.057, kg, 06/13/22 14:35:00 CDT, Weight Micro-K 10 2021-0 Yes 10 mEq = 1 M emoria oral 7-29 cap, PO, l capsule, 16:31: BID, # 180 [facility] [place] extended 00 cap, 0 release Refill(s), Pharmacy: [facility] [place], 162.56, cm, 06/13/22 14:35:00 CDT, Height, 80.057, kg, 06/13/22 14:35:00 CDT, Weight Micro-K 10 2021-0 Yes 10 mEq = 1 M emoria oral 7-29 cap, PO, l capsule, 16:31: BID, # 180 [facility] [place] extended 00 cap, 0 release Refill(s), Pharmacy: [facility] [place], 162.56, cm, 06/13/22 14:35:00 CDT, Height, 80.057, kg, 06/13/22 14:35:00 CDT, Weight Micro-K 10 2021-0 Yes 10 mEq = 1 M emoria oral 7-29 cap, PO, l capsule, 16:31: BID, # 180 [facility] [place] extended 00 cap, 0 release Refill(s), Pharmacy: [facility] [place], 162.56, cm, 06/13/22 14:35:00 CDT, Height, 80.057, kg, 06/13/22 14:35:00 CDT, Weight Micro-K 10 2021-0 Yes 10 mEq = 1 M emoria oral 7-29 cap, PO, l capsule, 16:31: BID, # 180 [facility] [place] extended 00 cap, 0 release Refill(s), Pharmacy: [facility] [place], 162.56, cm, 06/13/22 14:35:00 CDT, Height, 80.057, kg, 06/13/22 14:35:00 CDT, Weight Micro-K 10 2021-0 Yes 10 mEq = 1 M emoria oral 7-29 cap, PO, l capsule, 16:31: BID, # 180 [facility] [place] extended 00 cap, 0 release Refill(s), Pharmacy: [facility] [place], 162.56, cm, 06/13/22 14:35:00 CDT, Height, 80.057, kg, 06/13/22 14:35:00 CDT, Weight Micro-K 10 2021-0 Yes 10 mEq = 1 M emoria oral 7-29 cap, PO, l capsule, 16:31: BID, # 180 [facility] [place] extended 00 cap, 0 release Refill(s), Pharmacy: [facility] [place], 162.56, cm, 06/13/22 14:35:00 CDT, Height, 80.057, kg, 06/13/22 14:35:00 CDT, Weight Micro-K 10 2021-0 Yes 10 mEq = 1 M emoria oral 7-29 cap, PO, l capsule, 16:31: BID, # 180 [facility] [place] extended 00 cap, 0 release Refill(s), Pharmacy: [facility] [place], 162.56, cm, 06/13/22 14:35:00 CDT, Height, 80.057, kg, 06/13/22 14:35:00 CDT, Weight Micro-K 10 2021-0 Yes 10 mEq = 1 M emoria oral 7-29 cap, PO, l capsule, 16:31: BID, # 180 [facility] [place] extended 00 cap, 0 release Refill(s), Pharmacy: [facility] [place], 162.56, cm, 06/13/22 14:35:00 CDT, Height, 80.057, kg, 06/13/22 14:35:00 CDT, Weight Micro-K 10 2021-0 Yes 10 mEq = 1 M emoria oral 7-29 cap, PO, l capsule, 16:31: BID, # 180 [facility] [place] extended 00 cap, 0 release Refill(s), Pharmacy: [facility] [place], 162.56, cm, 06/13/22 14:35:00 CDT, Height, 80.057, kg, 06/13/22 14:35:00 CDT, Weight Micro-K 10 2021-0 Yes 10 mEq = 1 M emoria oral 7-29 cap, PO, l capsule, 16:31: BID, # 180 [facility] [place] extended 00 cap, 0 release Refill(s), Pharmacy: [facility] [place], 162.56, cm, 06/13/22 14:35:00 CDT, Height, 80.057, kg, 06/13/22 14:35:00 CDT, Weight Micro-K 10 2021-0 Yes 10 mEq = 1 M emoria oral 7-29 cap, PO, l capsule, 16:31: BID, # 180 [facility] [place] extended 00 cap, 0 release Refill(s), Pharmacy: [facility] [place], 162.56, cm, 06/13/22 14:35:00 CDT, Height, 80.057, kg, 06/13/22 14:35:00 CDT, Weight Micro-K 10 2021-0 Yes 10 mEq = 1 M emoria oral 7-29 cap, PO, l capsule, 16:31: BID, # 180 [facility] [place] extended 00 cap, 0 release Refill(s), Pharmacy: [facility] [place], 162.56, cm, 06/13/22 14:35:00 CDT, Height, 80.057, kg, 06/13/22 14:35:00 CDT, Weight Micro-K 10 2021-0 Yes 10 mEq = 1 M emoria oral 7-29 cap, PO, l capsule, 16:31: BID, # 180 [facility] [place] extended 00 cap, 0 release Refill(s), Pharmacy: [facility] [place], 162.56, cm, 06/13/22 14:35:00 CDT, Height, 80.057, kg, 06/13/22 14:35:00 CDT, Weight Micro-K 10 2021-0 Yes 10 mEq = 1 M emoria oral 7-29 cap, PO, l capsule, 16:31: BID, # 180 [facility] [place] extended 00 cap, 0 release Refill(s), Pharmacy: [facility] [place], 162.56, cm, 06/13/22 14:35:00 CDT, Height, 80.057, kg, 06/13/22 14:35:00 CDT, Weight Micro-K 10 2021-0 Yes 10 mEq = 1 M emoria oral 7-29 cap, PO, l capsule, 16:31: BID, # 180 Her [place] extended 00 cap, 0 release Refill(s), Pharmacy: [facility] [place], 162.56, cm, 06/13/22 14:35:00 CDT, Height, 80.057, kg, 06/13/22 14:35:00 CDT, Weight Micro-K 10 2021-0 Yes 10 mEq = 1 M emoria oral 7-29 cap, PO, l capsule, 16:31: BID, # 180 [place] extended 00 cap, 0 release Refill(s), Pharmacy: [facility] [place], 162.56, cm, 06/13/22 14:35:00 CDT, Height, 80.057, kg, 06/13/22 14:35:00 CDT, Weight Micro-K 10 2021-0 Yes 10 mEq = 1 M emoria oral 7-29 cap, PO, l capsule, 16:31: BID, # 180 [place] extended 00 cap, 0 release Refill(s), Pharmacy: [facility] [place], 162.56, cm, 06/13/22 14:35:00 CDT, Height, 80.057, kg, 06/13/22 14:35:00 CDT, Weight Micro-K 10 2021-0 Yes 10 mEq = 1 M emoria oral 7-29 cap, PO, l capsule, 16:31: BID, # 180 Her [place] extended 00 cap, 0 release Refill(s), Pharmacy: [facility] [place], 162.56, cm, 06/13/22 14:35:00 CDT, Height, 80.057, kg, 06/13/22 14:35:00 CDT, Weight Micro-K 10 2021-0 Yes 10 mEq = 1 M emoria oral 7-29 cap, PO, l capsule, 16:31: BID, # 180 Her [place] extended 00 cap, 0 release Refill(s), Pharmacy: [facility] [place], 162.56, cm, 06/13/22 14:35:00 CDT, Height, 80.057, kg, 06/13/22 14:35:00 CDT, Weight Micro-K 10 2021-0 Yes 10 mEq = 1 M emoria oral 7-29 cap, PO, l capsule, 16:31: BID, # 180 Her [place] extended 00 cap, 0 release Refill(s), Pharmacy: [facility] [place], 162.56, cm, 06/13/22 14:35:00 CDT, Height, 80.057, kg, 06/13/22 14:35:00 CDT, Weight Micro-K 10 2021-0 Yes 10 mEq = 1 M emoria oral 7-29 cap, PO, l capsule, 16:31: BID, # 180 Her [place] extended 00 cap, 0 release Refill(s), Pharmacy: [facility] [place], 162.56, cm, 06/13/22 14:35:00 CDT, Height, 80.057, kg, 06/13/22 14:35:00 CDT, Weight Micro-K 10 2021-0 Yes 10 mEq = 1 M emoria oral 7-29 cap, PO, l capsule, 16:31: BID, # 180 Her [place] extended 00 cap, 0 release Refill(s), Pharmacy: [facility] [place], 162.56, cm, 06/13/22 14:35:00 CDT, Height, 80.057, kg, 06/13/22 14:35:00 CDT, Weight Micro-K 10 2021-0 Yes 10 mEq = 1 M emoria oral 7-29 cap, PO, l capsule, 16:31: BID, # 180 Her [place] extended 00 cap, 0 release Refill(s), Pharmacy: [facility] [place], 162.56, cm, 06/13/22 14:35:00 CDT, Height, 80.057, kg, 06/13/22 14:35:00 CDT, Weight Micro-K 10 2021-0 Yes 10 mEq = 1 M emoria oral 7-29 cap, PO, l capsule, 16:31: BID, # 180 Her [place] extended 00 cap, 0 release Refill(s), Pharmacy: [facility] [place], 162.56, cm, 06/13/22 14:35:00 CDT, Height, 80.057, kg, 06/13/22 14:35:00 CDT, Weight Micro-K 10 2021-0 Yes 10 mEq = 1 M emoria oral 7-29 cap, PO, l capsule, 16:31: BID, # 180 Her [place] extended 00 cap, 0 release Refill(s), Pharmacy: [facility] [place], 162.56, cm, 06/13/22 14:35:00 CDT, Height, 80.057, kg, 06/13/22 14:35:00 CDT, Weight Micro-K 10 2021-0 Yes 10 mEq = 1 M emoria oral 7-29 cap, PO, l capsule, 16:31: BID, # 180 Her [place] extended 00 cap, 0 release Refill(s), Pharmacy: [facility] [place], 162.56, cm, 06/13/22 14:35:00 CDT, Height, 80.057, kg, 06/13/22 14:35:00 CDT, Weight Micro-K 10 2021-0 Yes 10 mEq = 1 M emoria oral 7-29 cap, PO, l capsule, 16:31: BID, # 180 Her [place] extended 00 cap, 0 release Refill(s), Pharmacy: [facility] [place], 162.56, cm, 06/13/22 14:35:00 CDT, Height, 80.057, kg, 06/13/22 14:35:00 CDT, Weight Micro-K 10 2021-0 Yes 10 mEq = 1 M emoria oral 7-29 cap, PO, l capsule, 16:31: BID, # 180 Her [place] extended 00 cap, 0 release Refill(s), Pharmacy: [facility] [place], 162.56, cm, 06/13/22 14:35:00 CDT, Height, 80.057, kg, 06/13/22 14:35:00 CDT, Weight Micro-K 10 2021-0 Yes 10 mEq = 1 M emoria oral 7-29 cap, PO, l capsule, 16:31: BID, # 180 Her [place] extended 00 cap, 0 release Refill(s), Pharmacy: [facility] [place], 162.56, cm, 06/13/22 14:35:00 CDT, Height, 80.057, kg, 06/13/22 14:35:00 CDT, Weight Micro-K 10 2021-0 Yes 10 mEq = 1 M emoria oral 7-29 cap, PO, l capsule, 16:31: BID, # 180 Her [place] extended 00 cap, 0 release Refill(s), Pharmacy: [facility] [place], 162.56, cm, 06/13/22 14:35:00 CDT, Height, 80.057, kg, 06/13/22 14:35:00 CDT, Weight Micro-K 10 2021-0 Yes 10 mEq = 1 M emoria oral 7-29 cap, PO, l capsule, 16:31: BID, # 180 Her [place] extended 00 cap, 0 release Refill(s), Pharmacy: [facility] [place], 162.56, cm, 06/13/22 14:35:00 CDT, Height, 80.057, kg, 06/13/22 14:35:00 CDT, Weight Micro-K 10 2021-0 Yes 10 mEq = 1 M emoria oral 7-29 cap, PO, l capsule, 16:31: BID, # 180 Her [place] extended 00 cap, 0 release Refill(s), Pharmacy: [facility] [place], 162.56, cm, 06/13/22 14:35:00 CDT, Height, 80.057, kg, 06/13/22 14:35:00 CDT, Weight Micro-K 10 2021-0 Yes 10 mEq = 1 M emoria oral 7-29 cap, PO, l capsule, 16:31: BID, # 180 Her [place] extended 00 cap, 0 release Refill(s), Pharmacy: [facility] [place], 162.56, cm, 06/13/22 14:35:00 CDT, Height, 80.057, kg, 06/13/22 14:35:00 CDT, Weight Micro-K 10 2021-0 Yes 10 mEq = 1 M emoria oral 7-29 cap, PO, l capsule, 16:31: BID, # 180 Her [place] extended 00 cap, 0 release Refill(s), Pharmacy: [facility] [place], 162.56, cm, 06/13/22 14:35:00 CDT, Height, 80.057, kg, 06/13/22 14:35:00 CDT, Weight Micro-K 10 2021-0 Yes 10 mEq = 1 M emoria oral 7-29 cap, PO, l capsule, 16:31: BID, # 180 Her [place] extended 00 cap, 0 release Refill(s), Pharmacy: [facility], 162.56, cm, 06/13/22 14:35:00 CDT, Height, 80.057, kg, 06/13/22 14:35:00 CDT, Weight Micro-K 10 2021-0 Yes 10 mEq = 1 M emoria oral 7-29 cap, PO, l capsule, 16:31: BID, # 180 Her [place]iera extended 00 cap, 0 release Refill(s), Pharmacy: [facility], 162.56, cm, 06/13/22 14:35:00 CDT, Height, 80.057, kg, 06/13/22 14:35:00 CDT, Weight Micro-K 10 2021-0 Yes 10 mEq = 1 M emoria oral 7-29 cap, PO, l capsule, 16:31: BID, # 180 Her [place]iera extended 00 cap, 0 release Refill(s), Pharmacy: [facility], 162.56, cm, 06/13/22 14:35:00 CDT, Height, 80.057, kg, 06/13/22 14:35:00 CDT, Weight pantoprazol 2021-0 Yes 40 mg = 1 M emoria e 40 mg 7-29 tab, PO, l oral 16:30: Daily, # [place] enter[facility] 00 90 tab, 0 coated Refill(s), tablet Pharmacy: [facility], 162.56, cm, 06/13/22 14:35:00 CDT, Height, 80.057, kg, 06/13/22 14:35:00 CDT, Weight magnesium 2021-0 Yes 400 mg = 1 Me moria oxide 400 7-29 tab, PO, l mg oral 16:30: Daily, X Harish n tablet 00 30 day, # 30 tab, 0 Refill(s), Pharmacy: [facility], 162.56, cm, 06/13/22 14:35:00 CDT, Height, 80.057, kg, 06/13/22 14:35:00 CDT, Weight pantoprazol 2022-0 Yes 40 mg = 1 M emoria e 40 mg 7-29 tab, PO, l oral 16:30: Daily, # [place] enter[facility] 00 90 tab, 0 coated Refill(s), tablet Pharmacy: [facility], 162.56, cm, 06/13/22 14:35:00 CDT, Height, 80.057, kg, 06/13/22 14:35:00 CDT, Weight magnesium 2022-0 Yes 400 mg = 1 Me moria oxide 400 7-29 tab, PO, l mg oral 16:30: Daily, X Harish n tablet 30 day, # 30 tab, 0 Refill(s), Pharmacy: [facility], 162.56, cm, 06/13/22 14:35:00 CDT, Height, 80.057, kg, 06/13/22 14:35:00 CDT, Weight pantoprazol 2022-0 Yes 40 mg = 1 M emoria e 40 mg 7-29 tab, PO, l oral 16:30: Daily, # [place] [facility] 00 90 tab, 0 coated Refill(s), tablet Pharmacy: [facility], 162.56, cm, 06/13/22 14:35:00 CDT, Height, 80.057, kg, 06/13/22 14:35:00 CDT, Weight magnesium 2022-0 Yes 400 mg = 1 Me moria oxide 400 7-29 tab, PO, l mg oral 16:30: Daily, X Harish n tablet 30 day, # 30 tab, 0 Refill(s), Pharmacy: [facility], 162.56, cm, 06/13/22 14:35:00 CDT, Height, 80.057, kg, 06/13/22 14:35:00 CDT, Weight pantoprazol 2022-0 Yes 40 mg = 1 M emoria e 40 mg 7-29 tab, PO, l oral 16:30: Daily, # [place] enter[facility] 00 90 tab, 0 coated Refill(s), tablet Pharmacy: [facility], 162.56, cm, 06/13/22 14:35:00 CDT, Height, 80.057, kg, 06/13/22 14:35:00 CDT, Weight magnesium 2022-0 Yes 400 mg = 1 Me moria oxide 400 7-29 tab, PO, l mg oral 16:30: Daily, X Harish n tablet 00 30 day, # 30 tab, 0 Refill(s), Pharmacy: [facility], 162.56, cm, 06/13/22 14:35:00 CDT, Height, 80.057, kg, 06/13/22 14:35:00 CDT, Weight pantoprazol 2022-0 Yes 40 mg = 1 M emoria e 40 mg 7-29 tab, PO, l oral 16:30: Daily, # [place] enteric 00 90 tab, 0 coated Refill(s), tablet Pharmacy: [facility], 162.56, cm, 06/13/22 14:35:00 CDT, Height, 80.057, kg, 06/13/22 14:35:00 CDT, Weight magnesium 2022-0 Yes 400 mg = 1 Me moria oxide 400 7-29 tab, PO, l mg oral 16:30: Daily, X Harish n tablet 30 day, # 30 tab, 0 Refill(s), Pharmacy: [facility], 162.56, cm, 06/13/22 14:35:00 CDT, Height, 80.057, kg, 06/13/22 14:35:00 CDT, Weight pantoprazol 2022-0 Yes 40 mg = 1 M emoria e 40 mg 7-29 tab, PO, l oral 16:30: Daily, # [place] enteric 00 90 tab, 0 coated Refill(s), tablet Pharmacy: [facility], 162.56, cm, 06/13/22 14:35:00 CDT, Height, 80.057, kg, 06/13/22 14:35:00 CDT, Weight magnesium 2022-0 Yes 400 mg = 1 Me moria oxide 400 7-29 tab, PO, l mg oral 16:30: Daily, X Harish n tablet 30 day, # 30 tab, 0 Refill(s), Pharmacy: [facility], 162.56, cm, 06/13/22 14:35:00 CDT, Height, 80.057, kg, 06/13/22 14:35:00 CDT, Weight pantoprazol 2022-0 Yes 40 mg = 1 M emoria e 40 mg 7-29 tab, PO, l oral 16:30: Daily, # [place] enteric 00 90 tab, 0 coated Refill(s), tablet Pharmacy: [facility], 162.56, cm, 06/13/22 14:35:00 CDT, Height, 80.057, kg, 06/13/22 14:35:00 CDT, Weight magnesium 2022-0 Yes 400 mg = 1 Me moria oxide 400 7-29 tab, PO, l mg oral 16:30: Daily, X Harish n tablet 00 30 day, # 30 tab, 0 Refill(s), Pharmacy: [facility], 162.56, cm, 06/13/22 14:35:00 CDT, Height, 80.057, kg, 06/13/22 14:35:00 CDT, Weight pantoprazol 2022-0 Yes 40 mg = 1 M emoria e 40 mg 7-29 tab, PO, l oral 16:30: Daily, # [place] enteric 00 90 tab, 0 coated Refill(s), tablet Pharmacy: [facility], 162.56, cm, 06/13/22 14:35:00 CDT, Height, 80.057, kg, 06/13/22 14:35:00 CDT, Weight magnesium 2022-0 Yes 400 mg = 1 Me moria oxide 400 7-29 tab, PO, l mg oral 16:30: Daily, X Harish n tablet 30 day, # 30 tab, 0 Refill(s), Pharmacy: [facility], 162.56, cm, 06/13/22 14:35:00 CDT, Height, 80.057, kg, 06/13/22 14:35:00 CDT, Weight pantoprazol 2022-0 Yes 40 mg = 1 M emoria e 40 mg 7-29 tab, PO, l oral 16:30: Daily, # [place] enteric 00 90 tab, 0 coated Refill(s), tablet Pharmacy: [facility], 162.56, cm, 06/13/22 14:35:00 CDT, Height, 80.057, kg, 06/13/22 14:35:00 CDT, Weight magnesium 2022-0 Yes 400 mg = 1 Me moria oxide 400 7-29 tab, PO, l mg oral 16:30: Daily, X Harish n tablet 00 30 day, # 30 tab, 0 Refill(s), Pharmacy: [facility], 162.56, cm, 06/13/22 14:35:00 CDT, Height, 80.057, kg, 06/13/22 14:35:00 CDT, Weight pantoprazol 2-0 Yes 40 mg = 1 M emoria e 40 mg 7-29 tab, PO, l oral 16:30: Daily, # [place] [facility] 00 90 tab, 0 coated Refill(s), tablet Pharmacy: [facility], 162.56, cm, 06/13/22 14:35:00 CDT, Height, 80.057, kg, 06/13/22 14:35:00 CDT, Weight magnesium 2-0 Yes 400 mg = 1 Me moria oxide 400 7-29 tab, PO, l mg oral 16:30: Daily, X [facility] tablet day, # 30 tab, 0 Refill(s), Pharmacy: [facility], 162.56, cm, 06/13/22 14:35:00 CDT, Height, 80.057, kg, 06/13/22 14:35:00 CDT, Weight pantoprazol 2-0 Yes 40 mg = 1 M emoria e 40 mg 7-29 tab, PO, l oral 16:30: Daily, # [facility] 00 90 tab, 0 coated Refill(s), tablet Pharmacy: [facility], 162.56, cm, 06/13/22 14:35:00 CDT, Height, 80.057, kg, 06/13/22 14:35:00 CDT, Weight magnesium 2022-0 Yes 400 mg = 1 Me moria oxide 400 7-29 tab, PO, l mg oral 16:30: Daily, X [facility] tablet 00 30 day, # 30 tab, 0 Refill(s), Pharmacy: [facility], 162.56, cm, 06/13/22 14:35:00 CDT, Height, 80.057, kg, 06/13/22 14:35:00 CDT, Weight pantoprazol 2022-0 Yes 40 mg = 1 M emoria e 40 mg 7-29 tab, PO, l oral 16:30: Daily, # [facility] 00 90 tab, 0 coated Refill(s), tablet Pharmacy: [facility], 162.56, cm, 06/13/22 14:35:00 CDT, Height, 80.057, kg, 06/13/22 14:35:00 CDT, Weight magnesium 2022-0 Yes 400 mg = 1 Me moria oxide 400 7-29 tab, PO, l mg oral 16:30: Daily, X [facility] tablet 00 30 day, # 30 tab, 0 Refill(s), Pharmacy: [facility], 162.56, cm, 06/13/22 14:35:00 CDT, Height, 80.057, kg, 06/13/22 14:35:00 CDT, Weight pantoprazol 2022-0 Yes 40 mg = 1 M emoria e 40 mg 7-29 tab, PO, l oral 16:30: Daily, # [facility] 00 90 tab, 0 coated Refill(s), tablet Pharmacy: [facility], 162.56, cm, 06/13/22 14:35:00 CDT, Height, 80.057, kg, 06/13/22 14:35:00 CDT, Weight magnesium 2022-0 Yes 400 mg = 1 Me moria oxide 400 7-29 tab, PO, l mg oral 16:30: Daily, X [facility] n tablet 30 day, # 30 tab, 0 Refill(s), Pharmacy: [facility], 162.56, cm, 06/13/22 14:35:00 CDT, Height, 80.057, kg, 06/13/22 14:35:00 CDT, Weight pantoprazol 2022-0 Yes 40 mg = 1 M emoria e 40 mg 7-29 tab, PO, l oral 16:30: Daily, # [facility] 00 90 tab, 0 coated Refill(s), tablet Pharmacy: [facility], 162.56, cm, 06/13/22 14:35:00 CDT, Height, 80.057, kg, 06/13/22 14:35:00 CDT, Weight magnesium 2022-0 Yes 400 mg = 1 Me moria oxide 400 7-29 tab, PO, l mg oral 16:30: Daily, X [facility] tablet 30 day, # 30 tab, 0 Refill(s), Pharmacy: [facility], 162.56, cm, 06/13/22 14:35:00 CDT, Height, 80.057, kg, 06/13/22 14:35:00 CDT, Weight pantoprazol 2022-0 Yes 40 mg = 1 M emoria e 40 mg 7-29 tab, PO, l oral 16:30: Daily, # [place] [facility] 00 90 tab, 0 coated Refill(s), tablet Pharmacy: [facility], 162.56, cm, 06/13/22 14:35:00 CDT, Height, 80.057, kg, 06/13/22 14:35:00 CDT, Weight magnesium 2022-0 Yes 400 mg = 1 Me moria oxide 400 7-29 tab, PO, l mg oral 16:30: Daily, X [facility] n tablet day, # 30 tab, 0 Refill(s), Pharmacy: [facility], 162.56, cm, 06/13/22 14:35:00 CDT, Height, 80.057, kg, 06/13/22 14:35:00 CDT, Weight pantoprazol 2022-0 Yes 40 mg = 1 M emoria e 40 mg 7-29 tab, PO, l oral 16:30: Daily, # [facility] 00 90 tab, 0 coated Refill(s), tablet Pharmacy: [facility], 162.56, cm, 06/13/22 14:35:00 CDT, Height, 80.057, kg, 06/13/22 14:35:00 CDT, Weight magnesium 2022-0 Yes 400 mg = 1 Me moria oxide 400 7-29 tab, PO, l mg oral 16:30: Daily, X [facility] n tablet 30 day, # 30 tab, 0 Refill(s), Pharmacy: [facility], 162.56, cm, 06/13/22 14:35:00 CDT, Height, 80.057, kg, 06/13/22 14:35:00 CDT, Weight pantoprazol 2022-0 Yes 40 mg = 1 M emoria e 40 mg 7-29 tab, PO, l oral 16:30: Daily, # [facility] 00 90 tab, 0 coated Refill(s), tablet Pharmacy: [facility], 162.56, cm, 06/13/22 14:35:00 CDT, Height, 80.057, kg, 06/13/22 14:35:00 CDT, Weight magnesium 2022-0 Yes 400 mg = 1 Me moria oxide 400 7-29 tab, PO, l mg oral 16:30: Daily, X [facility] n tablet 30 day, # 30 tab, 0 Refill(s), Pharmacy: [facility], 162.56, cm, 06/13/22 14:35:00 CDT, Height, 80.057, kg, 06/13/22 14:35:00 CDT, Weight pantoprazol 2-0 Yes 40 mg = 1 M emoria e 40 mg 7-29 tab, PO, l oral 16:30: Daily, # [facility] 00 90 tab, 0 coated Refill(s), tablet Pharmacy: [facility], 162.56, cm, 06/13/22 14:35:00 CDT, Height, 80.057, kg, 06/13/22 14:35:00 CDT, Weight magnesium 2022-0 Yes 400 mg = 1 Me moria oxide 400 7-29 tab, PO, l mg oral 16:30: Daily, X [facility] tablet 30 day, # 30 tab, 0 Refill(s), Pharmacy: [facility], 162.56, cm, 06/13/22 14:35:00 CDT, Height, 80.057, kg, 06/13/22 14:35:00 CDT, Weight pantoprazol 2022-0 Yes 40 mg = 1 M emoria e 40 mg 7-29 tab, PO, l oral 16:30: Daily, # [place] [facility] 00 90 tab, 0 coated Refill(s), tablet Pharmacy: [facility], 162.56, cm, 06/13/22 14:35:00 CDT, Height, 80.057, kg, 06/13/22 14:35:00 CDT, Weight magnesium 2022-0 Yes 400 mg = 1 Me moria oxide 400 7-29 tab, PO, l mg oral 16:30: Daily, X [facility] tablet day, # 30 tab, 0 Refill(s), Pharmacy: [facility], 162.56, cm, 06/13/22 14:35:00 CDT, Height, 80.057, kg, 06/13/22 14:35:00 CDT, Weight pantoprazol 2022-0 Yes 40 mg = 1 M emoria e 40 mg 7-29 tab, PO, l oral 16:30: Daily, # [facility] 00 90 tab, 0 coated Refill(s), tablet Pharmacy: [facility], 162.56, cm, 06/13/22 14:35:00 CDT, Height, 80.057, kg, 06/13/22 14:35:00 CDT, Weight magnesium 2022-0 Yes 400 mg = 1 Me moria oxide 400 7-29 tab, PO, l mg oral 16:30: Daily, X [facility] tablet day, # 30 tab, 0 Refill(s), Pharmacy: [facility], 162.56, cm, 06/13/22 14:35:00 CDT, Height, 80.057, kg, 06/13/22 14:35:00 CDT, Weight pantoprazol 2022-0 Yes 40 mg = 1 M emoria e 40 mg 7-29 tab, PO, l oral 16:30: Daily, # [place] [facility] 00 90 tab, 0 coated Refill(s), tablet Pharmacy: [facility], 162.56, cm, 06/13/22 14:35:00 CDT, Height, 80.057, kg, 06/13/22 14:35:00 CDT, Weight magnesium 2022-0 Yes 400 mg = 1 Me moria oxide 400 7-29 tab, PO, l mg oral 16:30: Daily, X [facility] tablet 00 30 day, # 30 tab, 0 Refill(s), Pharmacy: [facility], 162.56, cm, 06/13/22 14:35:00 CDT, Height, 80.057, kg, 06/13/22 14:35:00 CDT, Weight pantoprazol 2022-0 Yes 40 mg = 1 M emoria e 40 mg 7-29 tab, PO, l oral 16:30: Daily, # [facility] 00 90 tab, 0 coated Refill(s), tablet Pharmacy: [facility], 162.56, cm, 06/13/22 14:35:00 CDT, Height, 80.057, kg, 06/13/22 14:35:00 CDT, Weight magnesium 2022-0 Yes 400 mg = 1 Me moria oxide 400 7-29 tab, PO, l mg oral 16:30: Daily, X [facility] tablet day, # 30 tab, 0 Refill(s), Pharmacy: [facility], 162.56, cm, 06/13/22 14:35:00 CDT, Height, 80.057, kg, 06/13/22 14:35:00 CDT, Weight pantoprazol 2022-0 Yes 40 mg = 1 M emoria e 40 mg 7-29 tab, PO, l oral 16:30: Daily, # [place] [facility] 00 90 tab, 0 coated Refill(s), tablet Pharmacy: [facility], 162.56, cm, 06/13/22 14:35:00 CDT, Height, 80.057, kg, 06/13/22 14:35:00 CDT, Weight magnesium 2022-0 Yes 400 mg = 1 Me moria oxide 400 7-29 tab, PO, l mg oral 16:30: Daily, X [facility] tablet 30 day, # 30 tab, 0 Refill(s), Pharmacy: [facility], 162.56, cm, 06/13/22 14:35:00 CDT, Height, 80.057, kg, 06/13/22 14:35:00 CDT, Weight pantoprazol 2022-0 Yes 40 mg = 1 M emoria e 40 mg 7-29 tab, PO, l oral 16:30: Daily, # [place] [facility] 00 90 tab, 0 coated Refill(s), tablet Pharmacy: [facility], 162.56, cm, 06/13/22 14:35:00 CDT, Height, 80.057, kg, 06/13/22 14:35:00 CDT, Weight magnesium 2022-0 Yes 400 mg = 1 Me moria oxide 400 7-29 tab, PO, l mg oral 16:30: Daily, X [facility] tablet day, # 30 tab, 0 Refill(s), Pharmacy: [facility], 162.56, cm, 06/13/22 14:35:00 CDT, Height, 80.057, kg, 06/13/22 14:35:00 CDT, Weight pantoprazol 2022-0 Yes 40 mg = 1 M emoria e 40 mg 7-29 tab, PO, l oral 16:30: Daily, # [place] [facility] 00 90 tab, 0 coated Refill(s), tablet Pharmacy: [facility], 162.56, cm, 06/13/22 14:35:00 CDT, Height, 80.057, kg, 06/13/22 14:35:00 CDT, Weight magnesium 2022-0 Yes 400 mg = 1 Me moria oxide 400 7-29 tab, PO, l mg oral 16:30: Daily, X [facility] tablet day, # 30 tab, 0 Refill(s), Pharmacy: [facility], 162.56, cm, 06/13/22 14:35:00 CDT, Height, 80.057, kg, 06/13/22 14:35:00 CDT, Weight pantoprazol 2022-0 Yes 40 mg = 1 M emoria e 40 mg 7-29 tab, PO, l oral 16:30: Daily, # [place] [facility] 00 90 tab, 0 coated Refill(s), tablet Pharmacy: [facility], 162.56, cm, 06/13/22 14:35:00 CDT, Height, 80.057, kg, 06/13/22 14:35:00 CDT, Weight magnesium 2022-0 Yes 400 mg = 1 Me moria oxide 400 7-29 tab, PO, l mg oral 16:30: Daily, X [facility] tablet 00 30 day, # 30 tab, 0 Refill(s), Pharmacy: [facility], 162.56, cm, 06/13/22 14:35:00 CDT, Height, 80.057, kg, 06/13/22 14:35:00 CDT, Weight pantoprazol 2022-0 Yes 40 mg = 1 M emoria e 40 mg 7-29 tab, PO, l oral 16:30: Daily, # [facility] 00 90 tab, 0 coated Refill(s), tablet Pharmacy: [facility], 162.56, cm, 06/13/22 14:35:00 CDT, Height, 80.057, kg, 06/13/22 14:35:00 CDT, Weight magnesium 2022-0 Yes 400 mg = 1 Me moria oxide 400 7-29 tab, PO, l mg oral 16:30: Daily, X [facility] tablet 30 day, # 30 tab, 0 Refill(s), Pharmacy: [facility], 162.56, cm, 06/13/22 14:35:00 CDT, Height, 80.057, kg, 06/13/22 14:35:00 CDT, Weight pantoprazol 2022-0 Yes 40 mg = 1 M emoria e 40 mg 7-29 tab, PO, l oral 16:30: Daily, # [place] [facility] 00 90 tab, 0 coated Refill(s), tablet Pharmacy: [facility], 162.56, cm, 06/13/22 14:35:00 CDT, Height, 80.057, kg, 06/13/22 14:35:00 CDT, Weight magnesium 2022-0 Yes 400 mg = 1 Me moria oxide 400 7-29 tab, PO, l mg oral 16:30: Daily, X [facility] tablet 30 day, # 30 tab, 0 Refill(s), Pharmacy: [facility], 162.56, cm, 06/13/22 14:35:00 CDT, Height, 80.057, kg, 06/13/22 14:35:00 CDT, Weight pantoprazol 2022-0 Yes 40 mg = 1 M emoria e 40 mg 7-29 tab, PO, l oral 16:30: Daily, # [facility] 00 90 tab, 0 coated Refill(s), tablet Pharmacy: [facility], 162.56, cm, 06/13/22 14:35:00 CDT, Height, 80.057, kg, 06/13/22 14:35:00 CDT, Weight magnesium 2022-0 Yes 400 mg = 1 Me moria oxide 400 7-29 tab, PO, l mg oral 16:30: Daily, X [facility] tablet 30 day, # 30 tab, 0 Refill(s), Pharmacy: [facility], 162.56, cm, 06/13/22 14:35:00 CDT, Height, 80.057, kg, 06/13/22 14:35:00 CDT, Weight pantoprazol 2022-0 Yes 40 mg = 1 M emoria e 40 mg 7-29 tab, PO, l oral 16:30: Daily, # [place] [facility] 00 90 tab, 0 coated Refill(s), tablet Pharmacy: [facility], 162.56, cm, 06/13/22 14:35:00 CDT, Height, 80.057, kg, 06/13/22 14:35:00 CDT, Weight magnesium 2022-0 Yes 400 mg = 1 Me moria oxide 400 7-29 tab, PO, l mg oral 16:30: Daily, X [facility] tablet 30 day, # 30 tab, 0 Refill(s), Pharmacy: [facility], 162.56, cm, 06/13/22 14:35:00 CDT, Height, 80.057, kg, 06/13/22 14:35:00 CDT, Weight pantoprazol 2022-0 Yes 40 mg = 1 M emoria e 40 mg 7-29 tab, PO, l oral 16:30: Daily, # [place] [facility] 00 90 tab, 0 coated Refill(s), tablet Pharmacy: [facility], 162.56, cm, 06/13/22 14:35:00 CDT, Height, 80.057, kg, 06/13/22 14:35:00 CDT, Weight magnesium 2022-0 Yes 400 mg = 1 Me moria oxide 400 7-29 tab, PO, l mg oral 16:30: Daily, X [facility] tablet 00 30 day, # 30 tab, 0 Refill(s), Pharmacy: [facility], 162.56, cm, 06/13/22 14:35:00 CDT, Height, 80.057, kg, 06/13/22 14:35:00 CDT, Weight pantoprazol 2022-0 Yes 40 mg = 1 M emoria e 40 mg 7-29 tab, PO, l oral 16:30: Daily, # [facility] 00 90 tab, 0 coated Refill(s), tablet Pharmacy: [facility], 162.56, cm, 06/13/22 14:35:00 CDT, Height, 80.057, kg, 06/13/22 14:35:00 CDT, Weight magnesium 2022-0 Yes 400 mg = 1 Me moria oxide 400 7-29 tab, PO, l mg oral 16:30: Daily, X [facility] n tablet 30 day, # 30 tab, 0 Refill(s), Pharmacy: [facility], 162.56, cm, 06/13/22 14:35:00 CDT, Height, 80.057, kg, 06/13/22 14:35:00 CDT, Weight pantoprazol 2022-0 Yes 40 mg = 1 M emoria e 40 mg 7-29 tab, PO, l oral 16:30: Daily, # [place] [facility] 00 90 tab, 0 coated Refill(s), tablet Pharmacy: [facility], 162.56, cm, 06/13/22 14:35:00 CDT, Height, 80.057, kg, 06/13/22 14:35:00 CDT, Weight magnesium 2022-0 Yes 400 mg = 1 Me moria oxide 400 7-29 tab, PO, l mg oral 16:30: Daily, X [facility] tablet 30 day, # 30 tab, 0 Refill(s), Pharmacy: [facility], 162.56, cm, 06/13/22 14:35:00 CDT, Height, 80.057, kg, 06/13/22 14:35:00 CDT, Weight pantoprazol 2022-0 Yes 40 mg = 1 M emoria e 40 mg 7-29 tab, PO, l oral 16:30: Daily, # [facility] 00 90 tab, 0 coated Refill(s), tablet Pharmacy: [facility], 162.56, cm, 06/13/22 14:35:00 CDT, Height, 80.057, kg, 06/13/22 14:35:00 CDT, Weight magnesium 2022-0 Yes 400 mg = 1 Me moria oxide 400 7-29 tab, PO, l mg oral 16:30: Daily, X [facility] tablet 30 day, # 30 tab, 0 Refill(s), Pharmacy: [facility], 162.56, cm, 06/13/22 14:35:00 CDT, Height, 80.057, kg, 06/13/22 14:35:00 CDT, Weight pantoprazol 2-0 Yes 40 mg = 1 M emoria e 40 mg 7-29 tab, PO, l oral 16:30: Daily, # [facility] 00 90 tab, 0 coated Refill(s), tablet Pharmacy: [facility], 162.56, cm, 06/13/22 14:35:00 CDT, Height, 80.057, kg, 06/13/22 14:35:00 CDT, Weight magnesium 2-0 Yes 400 mg = 1 Me moria oxide 400 7-29 tab, PO, l mg oral 16:30: Daily, X [facility] tablet 30 day, # 30 tab, 0 Refill(s), Pharmacy: [facility], 162.56, cm, 06/13/22 14:35:00 CDT, Height, 80.057, kg, 06/13/22 14:35:00 CDT, Weight pantoprazol 2022-0 Yes 40 mg = 1 M emoria e 40 mg 7-29 tab, PO, l oral 16:30: Daily, # [facility] 00 90 tab, 0 coated Refill(s), tablet Pharmacy: [facility], 162.56, cm, 06/13/22 14:35:00 CDT, Height, 80.057, kg, 06/13/22 14:35:00 CDT, Weight magnesium 2022-0 Yes 400 mg = 1 Me moria oxide 400 7-29 tab, PO, l mg oral 16:30: Daily, X [facility] tablet 00 30 day, # 30 tab, 0 Refill(s), Pharmacy: [facility], 162.56, cm, 06/13/22 14:35:00 CDT, Height, 80.057, kg, 06/13/22 14:35:00 CDT, Weight pantoprazol 2022-0 Yes 40 mg = 1 M emoria e 40 mg 7-29 tab, PO, l oral 16:30: Daily, # [place] [facility] 00 90 tab, 0 coated Refill(s), tablet Pharmacy: [facility], 162.56, cm, 06/13/22 14:35:00 CDT, Height, 80.057, kg, 06/13/22 14:35:00 CDT, Weight magnesium 2022-0 Yes 400 mg = 1 Me moria oxide 400 7-29 tab, PO, l mg oral 16:30: Daily, X [facility] tablet 30 day, # 30 tab, 0 Refill(s), Pharmacy: [facility], 162.56, cm, 06/13/22 14:35:00 CDT, Height, 80.057, kg, 06/13/22 14:35:00 CDT, Weight pantoprazol 2022-0 Yes 40 mg = 1 M emoria e 40 mg 7-29 tab, PO, l oral 16:30: Daily, # [place] [facility] 00 90 tab, 0 coated Refill(s), tablet Pharmacy: [facility], 162.56, cm, 06/13/22 14:35:00 CDT, Height, 80.057, kg, 06/13/22 14:35:00 CDT, Weight magnesium 2022-0 Yes 400 mg = 1 Me moria oxide 400 7-29 tab, PO, l mg oral 16:30: Daily, X [facility] tablet 30 day, # 30 tab, 0 Refill(s), Pharmacy: [facility], 162.56, cm, 06/13/22 14:35:00 CDT, Height, 80.057, kg, 06/13/22 14:35:00 CDT, Weight pantoprazol 2022-0 Yes 40 mg = 1 M em[facility] e 40 mg 7-29 tab, PO, l oral 16:30: Daily, # [place] [facility] 00 90 tab, 0 coated Refill(s), tablet Pharmacy: [facility], 162.56, cm, 06/13/22 14:35:00 CDT, Height, 80.057, kg, 06/13/22 14:35:00 CDT, Weight magnesium 2022-0 Yes 400 mg = 1 Me moria oxide 400 7-29 tab, PO, l mg oral 16:30: Daily, X [facility] n tablet day, # 30 tab, 0 Refill(s), Pharmacy: [facility], 162.56, cm, 06/13/22 14:35:00 CDT, Height, 80.057, kg, 06/13/22 14:35:00 CDT, Weight pantoprazol 2-0 Yes 40 mg = 1 M emoria e 40 mg 7-29 tab, PO, l oral 16:30: Daily, # [facility] 00 90 tab, 0 coated Refill(s), tablet Pharmacy: [facility], 162.56, cm, 06/13/22 14:35:00 CDT, Height, 80.057, kg, 06/13/22 14:35:00 CDT, Weight magnesium 2-0 Yes 400 mg = 1 Me moria oxide 400 7-29 tab, PO, l mg oral 16:30: Daily, X [facility] tablet day, # 30 tab, 0 Refill(s), Pharmacy: [facility], 162.56, cm, 06/13/22 14:35:00 CDT, Height, 80.057, kg, 06/13/22 14:35:00 CDT, Weight pantoprazol 2022-0 Yes 40 mg = 1 M em[facility] e 40 mg 7-29 tab, PO, l oral 16:30: Daily, # [facility] 00 90 tab, 0 coated Refill(s), tablet Pharmacy: [facility], 162.56, cm, 06/13/22 14:35:00 CDT, Height, 80.057, kg, 06/13/22 14:35:00 CDT, Weight magnesium 2022-0 Yes 400 mg = 1 Me moria oxide 400 7-29 tab, PO, l mg oral 16:30: Daily, X [facility] n tablet 30 day, # 30 tab, 0 Refill(s), Pharmacy: [facility], 162.56, cm, 06/13/22 14:35:00 CDT, Height, 80.057, kg, 06/13/22 14:35:00 CDT, Weight pantoprazol 2022-0 Yes 40 mg = 1 M emoria e 40 mg 7-29 tab, PO, l oral 16:30: Daily, # [place] [facility] 00 90 tab, 0 coated Refill(s), tablet Pharmacy: [facility], 162.56, cm, 06/13/22 14:35:00 CDT, Height, 80.057, kg, 06/13/22 14:35:00 CDT, Weight magnesium 2022-0 Yes 400 mg = 1 Me moria oxide 400 7-29 tab, PO, l mg oral 16:30: Daily, X [facility] n tablet 30 day, # 30 tab, 0 Refill(s), Pharmacy: [facility], 162.56, cm, 06/13/22 14:35:00 CDT, Height, 80.057, kg, 06/13/22 14:35:00 CDT, Weight pantoprazol 2022-0 Yes 40 mg = 1 M emoria e 40 mg 7-29 tab, PO, l oral 16:30: Daily, # [facility] 00 90 tab, 0 coated Refill(s), tablet Pharmacy: [facility], 162.56, cm, 06/13/22 14:35:00 CDT, Height, 80.057, kg, 06/13/22 14:35:00 CDT, Weight magnesium 2022-0 Yes 400 mg = 1 Me moria oxide 400 7-29 tab, PO, l mg oral 16:30: Daily, X [facility] n tablet 30 day, # 30 tab, 0 Refill(s), Pharmacy: [facility], 162.56, cm, 06/13/22 14:35:00 CDT, Height, 80.057, kg, 06/13/22 14:35:00 CDT, Weight pantoprazol 2022-0 Yes 40 mg = 1 M emoria e 40 mg 7-29 tab, PO, l oral 16:30: Daily, # [facility] 00 90 tab, 0 coated Refill(s), tablet Pharmacy: [facility], 162.56, cm, 06/13/22 14:35:00 CDT, Height, 80.057, kg, 06/13/22 14:35:00 CDT, Weight magnesium 2022-0 Yes 400 mg = 1 Me moria oxide 400 7-29 tab, PO, l mg oral 16:30: Daily, X [facility] tablet 30 day, # 30 tab, 0 Refill(s), Pharmacy: [facility], 162.56, cm, 06/13/22 14:35:00 CDT, Height, 80.057, kg, 06/13/22 14:35:00 CDT, Weight pantoprazol 2022-0 Yes 40 mg = 1 M em[facility] e 40 mg 7-29 tab, PO, l oral 16:30: Daily, # [place] [facility] 00 90 tab, 0 coated Refill(s), tablet Pharmacy: [facility], 162.56, cm, 06/13/22 14:35:00 CDT, Height, 80.057, kg, 06/13/22 14:35:00 CDT, Weight magnesium 2022-0 Yes 400 mg = 1 Me moria oxide 400 7-29 tab, PO, l mg oral 16:30: Daily, X [facility] tablet day, # 30 tab, 0 Refill(s), Pharmacy: [facility], 162.56, cm, 06/13/22 14:35:00 CDT, Height, 80.057, kg, 06/13/22 14:35:00 CDT, Weight pantoprazol 2022-0 Yes 40 mg = 1 M [facility] e 40 mg 7-29 tab, PO, l oral 16:30: Daily, # [place] [facility] 00 90 tab, 0 coated Refill(s), tablet Pharmacy: [facility], 162.56, cm, 06/13/22 14:35:00 CDT, Height, 80.057, kg, 06/13/22 14:35:00 CDT, Weight magnesium 2022-0 Yes 400 mg = 1 Me moria oxide 400 7-29 tab, PO, l mg oral 16:30: Daily, X [facility] tablet 00 30 day, # 30 tab, 0 Refill(s), Pharmacy: [facility], 162.56, cm, 06/13/22 14:35:00 CDT, Height, 80.057, kg, 06/13/22 14:35:00 CDT, Weight pantoprazol 2022-0 Yes 40 mg = 1 [facility] e 40 mg 7-29 tab, PO, l oral 16:30: Daily, # [place] [facility] 00 90 tab, 0 coated Refill(s), tablet Pharmacy: [facility], 162.56, cm, 06/13/22 14:35:00 CDT, Height, 80.057, kg, 06/13/22 14:35:00 CDT, Weight magnesium 2022-0 Yes 400 mg = 1 Me moria oxide 400 7-29 tab, PO, l mg oral 16:30: Daily, X [facility] tablet 30 day, # 30 tab, 0 Refill(s), Pharmacy: [facility], 162.56, cm, 06/13/22 14:35:00 CDT, Height, 80.057, kg, 06/13/22 14:35:00 CDT, Weight pantoprazol 2022-0 Yes 40 mg = 1 M [facility] e 40 mg 7-29 tab, PO, l oral 16:30: Daily, # [place] [facility] 00 90 tab, 0 coated Refill(s), tablet Pharmacy: [facility], 162.56, cm, 06/13/22 14:35:00 CDT, Height, 80.057, kg, 06/13/22 14:35:00 CDT, Weight magnesium 2022-0 Yes 400 mg = 1 Me moria oxide 400 7-29 tab, PO, l mg oral 16:30: Daily, X [facility] tablet 30 day, # 30 tab, 0 Refill(s), Pharmacy: [facility], 162.56, cm, 06/13/22 14:35:00 CDT, Height, 80.057, kg, 06/13/22 14:35:00 CDT, Weight pantoprazol 2022-0 Yes 40 mg = 1 M [facility] e 40 mg 7-29 tab, PO, l oral 16:30: Daily, # [facility] enteric 00 90 tab, 0 coated Refill(s), tablet Pharmacy: [facility], 162.56, cm, 06/13/22 14:35:00 CDT, Height, 80.057, kg, 06/13/22 14:35:00 CDT, Weight magnesium 2022-0 Yes 400 mg = 1 Me moria oxide 400 7-29 tab, PO, l mg oral 16:30: Daily, X Harish n tablet 30 day, # 30 tab, 0 Refill(s), Pharmacy: [facility], 162.56, cm, 06/13/22 14:35:00 CDT, Height, 80.057, kg, 06/13/22 14:35:00 CDT, Weight pantoprazol 2022-0 Yes 40 mg = 1 M emoria e 40 mg 7-29 tab, PO, l oral 16:30: Daily, # [place] enteric 00 90 tab, 0 coated Refill(s), tablet Pharmacy: [facility], 162.56, cm, 06/13/22 14:35:00 CDT, Height, 80.057, kg, 06/13/22 14:35:00 CDT, Weight magnesium 2022-0 Yes 400 mg = 1 Me moria oxide 400 7-29 tab, PO, l mg oral 16:30: Daily, X Harish n tablet 30 day, # 30 tab, 0 Refill(s), Pharmacy: [facility], 162.56, cm, 06/13/22 14:35:00 CDT, Height, 80.057, kg, 06/13/22 14:35:00 CDT, Weight pantoprazol 2022-0 Yes 40 mg = 1 M emoria e 40 mg 7-29 tab, PO, l oral 16:30: Daily, # [place] enteric 00 90 tab, 0 coated Refill(s), tablet Pharmacy: [facility], 162.56, cm, 06/13/22 14:35:00 CDT, Height, 80.057, kg, 06/13/22 14:35:00 CDT, Weight magnesium 2022-0 Yes 400 mg = 1 Me moria oxide 400 7-29 tab, PO, l mg oral 16:30: Daily, X Harish n tablet 00 30 day, # 30 tab, 0 Refill(s), Pharmacy: [facility], 162.56, cm, 06/13/22 14:35:00 CDT, Height, 80.057, kg, 06/13/22 14:35:00 CDT, Weight pantoprazol 2022-0 Yes 40 mg = 1 M emoria e 40 mg 7-29 tab, PO, l oral 16:30: Daily, # [place] enteric 00 90 tab, 0 coated Refill(s), tablet Pharmacy: [facility], 162.56, cm, 06/13/22 14:35:00 CDT, Height, 80.057, kg, 06/13/22 14:35:00 CDT, Weight magnesium 2022-0 Yes 400 mg = 1 Me moria oxide 400 7-29 tab, PO, l mg oral 16:30: Daily, X Harish n tablet day, # 30 tab, 0 Refill(s), Pharmacy: [facility], 162.56, cm, 06/13/22 14:35:00 CDT, Height, 80.057, kg, 06/13/22 14:35:00 CDT, Weight pantoprazol 2022-0 Yes 40 mg = 1 M emoria e 40 mg 7-29 tab, PO, l oral 16:30: Daily, # [place] enteric 00 90 tab, 0 coated Refill(s), tablet Pharmacy: [facility], 162.56, cm, 06/13/22 14:35:00 CDT, Height, 80.057, kg, 06/13/22 14:35:00 CDT, Weight magnesium 2022-0 Yes 400 mg = 1 Me moria oxide 400 7-29 tab, PO, l mg oral 16:30: Daily, X Harish n tablet 30 day, # 30 tab, 0 Refill(s), Pharmacy: [facility], 162.56, cm, 06/13/22 14:35:00 CDT, Height, 80.057, kg, 06/13/22 14:35:00 CDT, Weight pantoprazol 2021-0 Yes 40 mg = 1 M emoria e 40 mg 7-29 tab, PO, l oral 16:30: Daily, # [place] enteric 00 90 tab, 0 coated Refill(s), tablet Pharmacy: [facility], 162.56, cm, 06/13/22 14:35:00 CDT, Height, 80.057, kg, 06/13/22 14:35:00 CDT, Weight magnesium 2021-0 Yes 400 mg = 1 Me moria oxide 400 7-29 tab, PO, l mg oral 16:30: Daily, X Harish n tablet day, # 30 tab, 0 Refill(s), Pharmacy: [facility], 162.56, cm, 06/13/22 14:35:00 CDT, Height, 80.057, kg, 06/13/22 14:35:00 CDT, Weight losartan 25 2021-0 Yes 25 mg = 1 M emoria mg oral 7-29 tab, PO, l tablet 16:29: Daily, # [place] 00 90 tab, 1 Refill(s), Pharmacy: [facility], 162.56, cm, 06/13/22 14:35:00 CDT, Height, 80.057, kg, 06/13/22 14:35:00 CDT, Weight losartan 25 2021-0 Yes 25 mg = 1 M emoria mg oral 7-29 tab, PO, l tablet 16:29: Daily, # [place] 00 90 tab, 1 Refill(s), Pharmacy: [facility], 162.56, cm, 06/13/22 14:35:00 CDT, Height, 80.057, kg, 06/13/22 14:35:00 CDT, Weight losartan 25 2021-0 Yes 25 mg = 1 M emoria mg oral 7-29 tab, PO, l tablet 16:29: Daily, # [place] 00 90 tab, 1 Refill(s), Pharmacy: [facility], 162.56, cm, 06/13/22 14:35:00 CDT, Height, 80.057, kg, 06/13/22 14:35:00 CDT, Weight losartan 25 2021-0 Yes 25 mg = 1 M emoria mg oral 7-29 tab, PO, l tablet 16:29: Daily, # [place] 00 90 tab, 1 Refill(s), Pharmacy: [facility], 162.56, cm, 06/13/22 14:35:00 CDT, Height, 80.057, kg, 06/13/22 14:35:00 CDT, Weight losartan 25 2021-0 Yes 25 mg = 1 M emoria mg oral 7-29 tab, PO, l tablet 16:29: Daily, # [place] 00 90 tab, 1 Refill(s), Pharmacy: [facility], 162.56, cm, 06/13/22 14:35:00 CDT, Height, 80.057, kg, 06/13/22 14:35:00 CDT, Weight losartan 25 2021-0 Yes 25 mg = 1 M emoria mg oral 7-29 tab, PO, l tablet 16:29: Daily, # [place] 00 90 tab, 1 Refill(s), Pharmacy: [facility], 162.56, cm, 06/13/22 14:35:00 CDT, Height, 80.057, kg, 06/13/22 14:35:00 CDT, Weight losartan 25 2021-0 Yes 25 mg = 1 M emoria mg oral 7-29 tab, PO, l tablet 16:29: Daily, # [place] 00 90 tab, 1 Refill(s), Pharmacy: [facility], 162.56, cm, 06/13/22 14:35:00 CDT, Height, 80.057, kg, 06/13/22 14:35:00 CDT, Weight losartan 25 2021-0 Yes 25 mg = 1 M emoria mg oral 7-29 tab, PO, l tablet 16:29: Daily, # [place] 00 90 tab, 1 Refill(s), Pharmacy: [facility], 162.56, cm, 06/13/22 14:35:00 CDT, Height, 80.057, kg, 06/13/22 14:35:00 CDT, Weight losartan 25 2021-0 Yes 25 mg = 1 M emoria mg oral 7-29 tab, PO, l tablet 16:29: Daily, # [place] 00 90 tab, 1 Refill(s), Pharmacy: [facility], 162.56, cm, 06/13/22 14:35:00 CDT, Height, 80.057, kg, 06/13/22 14:35:00 CDT, Weight losartan 25 2-0 Yes 25 mg = 1 M emoria mg oral 7-29 tab, PO, l tablet 16:29: Daily, # [place] 00 90 tab, 1 Refill(s), Pharmacy: [facility], 162.56, cm, 06/13/22 14:35:00 CDT, Height, 80.057, kg, 06/13/22 14:35:00 CDT, Weight losartan 25 2021-0 Yes 25 mg = 1 M emoria mg oral 7-29 tab, PO, l tablet 16:29: Daily, # [place] 00 90 tab, 1 Refill(s), Pharmacy: [facility], 162.56, cm, 06/13/22 14:35:00 CDT, Height, 80.057, kg, 06/13/22 14:35:00 CDT, Weight losartan 25 2021-0 Yes 25 mg = 1 M emoria mg oral 7-29 tab, PO, l tablet 16:29: Daily, # [place] 00 90 tab, 1 Refill(s), Pharmacy: [facility], 162.56, cm, 06/13/22 14:35:00 CDT, Height, 80.057, kg, 06/13/22 14:35:00 CDT, Weight losartan 25 2021-0 Yes 25 mg = 1 M emoria mg oral 7-29 tab, PO, l tablet 16:29: Daily, # [place] 00 90 tab, 1 Refill(s), Pharmacy: [facility], 162.56, cm, 06/13/22 14:35:00 CDT, Height, 80.057, kg, 06/13/22 14:35:00 CDT, Weight losartan 25 2-0 Yes 25 mg = 1 M emoria mg oral 7-29 tab, PO, l tablet 16:29: Daily, # [place] 00 90 tab, 1 Refill(s), Pharmacy: [facility], 162.56, cm, 06/13/22 14:35:00 CDT, Height, 80.057, kg, 06/13/22 14:35:00 CDT, Weight losartan 25 2-0 Yes 25 mg = 1 M emoria mg oral 7-29 tab, PO, l tablet 16:29: Daily, # [place] 00 90 tab, 1 Refill(s), Pharmacy: [facility], 162.56, cm, 06/13/22 14:35:00 CDT, Height, 80.057, kg, 06/13/22 14:35:00 CDT, Weight losartan 25 2021-0 Yes 25 mg = 1 M emoria mg oral 7-29 tab, PO, l tablet 16:29: Daily, # [place] 00 90 tab, 1 Refill(s), Pharmacy: [facility], 162.56, cm, 06/13/22 14:35:00 CDT, Height, 80.057, kg, 06/13/22 14:35:00 CDT, Weight losartan 25 2021-0 Yes 25 mg = 1 M emoria mg oral 7-29 tab, PO, l tablet 16:29: Daily, # [place] 00 90 tab, 1 Refill(s), Pharmacy: [facility], 162.56, cm, 06/13/22 14:35:00 CDT, Height, 80.057, kg, 06/13/22 14:35:00 CDT, Weight losartan 25 2-0 Yes 25 mg = 1 M emoria mg oral 7-29 tab, PO, l tablet 16:29: Daily, # [place] 00 90 tab, 1 Refill(s), Pharmacy: [facility], 162.56, cm, 06/13/22 14:35:00 CDT, Height, 80.057, kg, 06/13/22 14:35:00 CDT, Weight losartan 25 2-0 Yes 25 mg = 1 M emoria mg oral 7-29 tab, PO, l tablet 16:29: Daily, # [place] 00 90 tab, 1 Refill(s), Pharmacy: [facility], 162.56, cm, 06/13/22 14:35:00 CDT, Height, 80.057, kg, 06/13/22 14:35:00 CDT, Weight losartan 25 2022-0 Yes 25 mg = 1 M emoria mg oral 7-29 tab, PO, l tablet 16:29: Daily, # [place] 00 90 tab, 1 Refill(s), Pharmacy: [facility], 162.56, cm, 06/13/22 14:35:00 CDT, Height, 80.057, kg, 06/13/22 14:35:00 CDT, Weight losartan 25 2-0 Yes 25 mg = 1 M emoria mg oral 7-29 tab, PO, l tablet 16:29: Daily, # [place] 00 90 tab, 1 Refill(s), Pharmacy: [facility], 162.56, cm, 06/13/22 14:35:00 CDT, Height, 80.057, kg, 06/13/22 14:35:00 CDT, Weight losartan 25 2-0 Yes 25 mg = 1 M emoria mg oral 7-29 tab, PO, l tablet 16:29: Daily, # [place] 00 90 tab, 1 Refill(s), Pharmacy: [facility], 162.56, cm, 06/13/22 14:35:00 CDT, Height, 80.057, kg, 06/13/22 14:35:00 CDT, Weight losartan 25 2022-0 Yes 25 mg = 1 M emoria mg oral 7-29 tab, PO, l tablet 16:29: Daily, # [place] 00 90 tab, 1 Refill(s), Pharmacy: [facility], 162.56, cm, 06/13/22 14:35:00 CDT, Height, 80.057, kg, 06/13/22 14:35:00 CDT, Weight losartan 25 2022-0 Yes 25 mg = 1 M emoria mg oral 7-29 tab, PO, l tablet 16:29: Daily, # [place] 00 90 tab, 1 Refill(s), Pharmacy: [facility], 162.56, cm, 06/13/22 14:35:00 CDT, Height, 80.057, kg, 06/13/22 14:35:00 CDT, Weight losartan 25 2021-0 Yes 25 mg = 1 M emoria mg oral 7-29 tab, PO, l tablet 16:29: Daily, # [place] 00 90 tab, 1 Refill(s), Pharmacy: [facility], 162.56, cm, 06/13/22 14:35:00 CDT, Height, 80.057, kg, 06/13/22 14:35:00 CDT, Weight losartan 25 2021-0 Yes 25 mg = 1 M emoria mg oral 7-29 tab, PO, l tablet 16:29: Daily, # [place] 00 90 tab, 1 Refill(s), Pharmacy: [facility], 162.56, cm, 06/13/22 14:35:00 CDT, Height, 80.057, kg, 06/13/22 14:35:00 CDT, Weight losartan 25 2021-0 Yes 25 mg = 1 M emoria mg oral 7-29 tab, PO, l tablet 16:29: Daily, # [place] 00 90 tab, 1 Refill(s), Pharmacy: [facility], 162.56, cm, 06/13/22 14:35:00 CDT, Height, 80.057, kg, 06/13/22 14:35:00 CDT, Weight losartan 25 2021-0 Yes 25 mg = 1 M emoria mg oral 7-29 tab, PO, l tablet 16:29: Daily, # [place] 00 90 tab, 1 Refill(s), Pharmacy: [facility], 162.56, cm, 06/13/22 14:35:00 CDT, Height, 80.057, kg, 06/13/22 14:35:00 CDT, Weight losartan 25 2021-0 Yes 25 mg = 1 M emoria mg oral 7-29 tab, PO, l tablet 16:29: Daily, # [place] 00 90 tab, 1 Refill(s), Pharmacy: [facility], 162.56, cm, 06/13/22 14:35:00 CDT, Height, 80.057, kg, 06/13/22 14:35:00 CDT, Weight losartan 25 2021-0 Yes 25 mg = 1 M emoria mg oral 7-29 tab, PO, l tablet 16:29: Daily, # [place] 00 90 tab, 1 Refill(s), Pharmacy: [facility], 162.56, cm, 06/13/22 14:35:00 CDT, Height, 80.057, kg, 06/13/22 14:35:00 CDT, Weight losartan 25 2021-0 Yes 25 mg = 1 M emoria mg oral 7-29 tab, PO, l tablet 16:29: Daily, # [place] 00 90 tab, 1 Refill(s), Pharmacy: [facility], 162.56, cm, 06/13/22 14:35:00 CDT, Height, 80.057, kg, 06/13/22 14:35:00 CDT, Weight losartan 25 2021-0 Yes 25 mg = 1 M emoria mg oral 7-29 tab, PO, l tablet 16:29: Daily, # [place] 00 90 tab, 1 Refill(s), Pharmacy: [facility], 162.56, cm, 06/13/22 14:35:00 CDT, Height, 80.057, kg, 06/13/22 14:35:00 CDT, Weight losartan 25 2021-0 Yes 25 mg = 1 M emoria mg oral 7-29 tab, PO, l tablet 16:29: Daily, # [place] 00 90 tab, 1 Refill(s), Pharmacy: [facility], 162.56, cm, 06/13/22 14:35:00 CDT, Height, 80.057, kg, 06/13/22 14:35:00 CDT, Weight losartan 25 2021-0 Yes 25 mg = 1 M emoria mg oral 7-29 tab, PO, l tablet 16:29: Daily, # [place] 00 90 tab, 1 Refill(s), Pharmacy: [facility], 162.56, cm, 06/13/22 14:35:00 CDT, Height, 80.057, kg, 06/13/22 14:35:00 CDT, Weight losartan 25 2021-0 Yes 25 mg = 1 M emoria mg oral 7-29 tab, PO, l tablet 16:29: Daily, # [place] 00 90 tab, 1 Refill(s), Pharmacy: [facility], 162.56, cm, 06/13/22 14:35:00 CDT, Height, 80.057, kg, 06/13/22 14:35:00 CDT, Weight losartan 25 2021-0 Yes 25 mg = 1 M emoria mg oral 7-29 tab, PO, l tablet 16:29: Daily, # [place] 00 90 tab, 1 Refill(s), Pharmacy: [facility], 162.56, cm, 06/13/22 14:35:00 CDT, Height, 80.057, kg, 06/13/22 14:35:00 CDT, Weight losartan 25 2021-0 Yes 25 mg = 1 M emoria mg oral 7-29 tab, PO, l tablet 16:29: Daily, # [place] 00 90 tab, 1 Refill(s), Pharmacy: [facility], 162.56, cm, 06/13/22 14:35:00 CDT, Height, 80.057, kg, 06/13/22 14:35:00 CDT, Weight losartan 25 2021-0 Yes 25 mg = 1 M emoria mg oral 7-29 tab, PO, l tablet 16:29: Daily, # [place] 00 90 tab, 1 Refill(s), Pharmacy: [facility], 162.56, cm, 06/13/22 14:35:00 CDT, Height, 80.057, kg, 06/13/22 14:35:00 CDT, Weight losartan 25 2021-0 Yes 25 mg = 1 M emoria mg oral 7-29 tab, PO, l tablet 16:29: Daily, # [place] 00 90 tab, 1 Refill(s), Pharmacy: [facility], 162.56, cm, 06/13/22 14:35:00 CDT, Height, 80.057, kg, 06/13/22 14:35:00 CDT, Weight losartan 25 2021-0 Yes 25 mg = 1 M emoria mg oral 7-29 tab, PO, l tablet 16:29: Daily, # [place] 00 90 tab, 1 Refill(s), Pharmacy: [facility], 162.56, cm, 06/13/22 14:35:00 CDT, Height, 80.057, kg, 06/13/22 14:35:00 CDT, Weight losartan 25 2-0 Yes 25 mg = 1 M emoria mg oral 7-29 tab, PO, l tablet 16:29: Daily, # [place] 00 90 tab, 1 Refill(s), Pharmacy: [facility], 162.56, cm, 06/13/22 14:35:00 CDT, Height, 80.057, kg, 06/13/22 14:35:00 CDT, Weight losartan 25 2-0 Yes 25 mg = 1 M emoria mg oral 7-29 tab, PO, l tablet 16:29: Daily, # [place] 00 90 tab, 1 Refill(s), Pharmacy: [facility], 162.56, cm, 06/13/22 14:35:00 CDT, Height, 80.057, kg, 06/13/22 14:35:00 CDT, Weight losartan 25 2-0 Yes 25 mg = 1 M em[place] mg oral 7-29 tab, PO, l tablet 16:29: Daily, # [place] 00 90 tab, 1 Refill(s), Pharmacy: [facility], 162.56, cm, 06/13/22 14:35:00 CDT, Height, 80.057, kg, 06/13/22 14:35:00 CDT, Weight losartan 25 2-0 Yes 25 mg = 1 M emoria mg oral 7-29 tab, PO, l tablet 16:29: Daily, # [place] 00 90 tab, 1 Refill(s), Pharmacy: [facility], 162.56, cm, 06/13/22 14:35:00 CDT, Height, 80.057, kg, 06/13/22 14:35:00 CDT, Weight losartan 25 2-0 Yes 25 mg = 1 M emoria mg oral 7-29 tab, PO, l tablet 16:29: Daily, # [place] 00 90 tab, 1 Refill(s), Pharmacy: [facility], 162.56, cm, 06/13/22 14:35:00 CDT, Height, 80.057, kg, 06/13/22 14:35:00 CDT, Weight losartan 25 2-0 Yes 25 mg = 1 M em[place] mg oral 7-29 tab, PO, l tablet 16:29: Daily, # [place] 00 90 tab, 1 Refill(s), Pharmacy: [facility], 162.56, cm, 06/13/22 14:35:00 CDT, Height, 80.057, kg, 06/13/22 14:35:00 CDT, Weight losartan 25 2021-0 Yes 25 mg = 1 M em[place] mg oral 7-29 tab, PO, l tablet 16:29: Daily, # [place] 00 90 tab, 1 Refill(s), Pharmacy: [facility], 162.56, cm, 06/13/22 14:35:00 CDT, Height, 80.057, kg, 06/13/22 14:35:00 CDT, Weight losartan 25 2021-0 Yes 25 mg = 1 M emoria mg oral 7-29 tab, PO, l tablet 16:29: Daily, # [place] 00 90 tab, 1 Refill(s), Pharmacy: [facility], 162.56, cm, 06/13/22 14:35:00 CDT, Height, 80.057, kg, 06/13/22 14:35:00 CDT, Weight losartan 25 2-0 Yes 25 mg = 1 M emoria mg oral 7-29 tab, PO, l tablet 16:29: Daily, # [place] 00 90 tab, 1 Refill(s), Pharmacy: [facility], 162.56, cm, 06/13/22 14:35:00 CDT, Height, 80.057, kg, 06/13/22 14:35:00 CDT, Weight losartan 25 2-0 Yes 25 mg = 1 M em[place] mg oral 7-29 tab, PO, l tablet 16:29: Daily, # [place] 00 90 tab, 1 Refill(s), Pharmacy: [facility], 162.56, cm, 06/13/22 14:35:00 CDT, Height, 80.057, kg, 06/13/22 14:35:00 CDT, Weight losartan 25 2021-0 Yes 25 mg = 1 M emoria mg oral 7-29 tab, PO, l tablet 16:29: Daily, # [place] 00 90 tab, 1 Refill(s), Pharmacy: [facility], 162.56, cm, 06/13/22 14:35:00 CDT, Height, 80.057, kg, 06/13/22 14:35:00 CDT, Weight losartan 25 2021-0 Yes 25 mg = 1 M emoria mg oral 7-29 tab, PO, l tablet 16:29: Daily, # [place] 00 90 tab, 1 Refill(s), Pharmacy: [facility], 162.56, cm, 06/13/22 14:35:00 CDT, Height, 80.057, kg, 06/13/22 14:35:00 CDT, Weight losartan 25 2021-0 Yes 25 mg = 1 M emoria mg oral 7-29 tab, PO, l tablet 16:29: Daily, # [place] 00 90 tab, 1 Refill(s), Pharmacy: [facility], 162.56, cm, 06/13/22 14:35:00 CDT, Height, 80.057, kg, 06/13/22 14:35:00 CDT, Weight losartan 25 2021-0 Yes 25 mg = 1 M [place] mg oral 7-29 tab, PO, l tablet 16:29: Daily, # [place] 00 90 tab, 1 Refill(s), Pharmacy: [facility], 162.56, cm, 06/13/22 14:35:00 CDT, Height, 80.057, kg, 06/13/22 14:35:00 CDT, Weight predniSONE 2021-0 Yes 20 mg = 1 Me moria 20 mg oral 7-29 tab, PO, l tablet 16:28: Daily, X 3 Alejandra nn day, # 3 tab, 0 Refill(s), Pharmacy: [facility], 162.56, cm, 06/13/22 14:35:00 CDT, Height, 80.057, kg, 06/13/22 14:35:00 CDT, Weight metoprolol 2-0 Yes 25 mg = 1 Me moria tartrate 25 7-29 tab, PO, l mg oral 16:28: BID, # 60 Alejandra nn tablet 00 tab, 0 Refill(s), Pharmacy: [facility], 162.56, cm, 06/13/22 14:35:00 CDT, Height, 80.057, kg, 06/13/22 14:35:00 CDT, Weight predniSONE 2-0 Yes 20 mg = 1 [place] 20 mg oral 7-29 tab, PO, l tablet 16:28: Daily, X 3 [place] nn 00 day, # 3 tab, 0 Refill(s), Pharmacy: [facility], 162.56, cm, 06/13/22 14:35:00 CDT, Height, 80.057, kg, 06/13/22 14:35:00 CDT, Weight metoprolol 2021-0 Yes 25 mg = 1 Me moria tartrate 25 7-29 tab, PO, l mg oral 16:28: BID, # 60 Alejandra nn tablet 00 tab, 0 Refill(s), Pharmacy: [facility], 162.56, cm, 06/13/22 14:35:00 CDT, Height, 80.057, kg, 06/13/22 14:35:00 CDT, Weight predniSONE 2021-0 Yes 20 mg = 1 Me [place] 20 mg oral 7-29 tab, PO, l tablet 16:28: Daily, X 3 [place] nn day, # 3 tab, 0 Refill(s), Pharmacy: [facility], 162.56, cm, 06/13/22 14:35:00 CDT, Height, 80.057, kg, 06/13/22 14:35:00 CDT, Weight metoprolol 2-0 Yes 25 mg = 1 Me moria tartrate 25 7-29 tab, PO, l mg oral 16:28: BID, # 60 Alejnadra nn tablet 00 tab, 0 Refill(s), Pharmacy: [facility], 162.56, cm, 06/13/22 14:35:00 CDT, Height, 80.057, kg, 06/13/22 14:35:00 CDT, Weight predniSONE 2-0 Yes 20 mg = 1 [place] 20 mg oral 7-29 tab, PO, l tablet 16:28: Daily, X 3 [place] nn 00 day, # 3 tab, 0 Refill(s), Pharmacy: [facility], 162.56, cm, 06/13/22 14:35:00 CDT, Height, 80.057, kg, 06/13/22 14:35:00 CDT, Weight metoprolol 2-0 Yes 25 mg = 1 Me moria tartrate 25 7-29 tab, PO, l mg oral 16:28: BID, # 60 Alejandra nn tablet 00 tab, 0 Refill(s), Pharmacy: [facility], 162.56, cm, 06/13/22 14:35:00 CDT, Height, 80.057, kg, 06/13/22 14:35:00 CDT, Weight predniSONE 2021-0 Yes 20 mg = 1 Me mor[place] 20 mg oral 7-29 tab, PO, l tablet 16:28: Daily, X 3 [place] nn 00 day, # 3 tab, 0 Refill(s), Pharmacy: [facility], 162.56, cm, 06/13/22 14:35:00 CDT, Height, 80.057, kg, 06/13/22 14:35:00 CDT, Weight metoprolol 2021-0 Yes 25 mg = 1 Me moria tartrate 25 7-29 tab, PO, l mg oral 16:28: BID, # 60 Alejandra nn tablet 00 tab, 0 Refill(s), Pharmacy: [facility], 162.56, cm, 06/13/22 14:35:00 CDT, Height, 80.057, kg, 06/13/22 14:35:00 CDT, Weight predniSONE 2-0 Yes 20 mg = 1 Me mor[place] 20 mg oral 7-29 tab, PO, l tablet 16:28: Daily, X 3 [place]jandra nn 00 day, # 3 tab, 0 Refill(s), Pharmacy: [facility], 162.56, cm, 06/13/22 14:35:00 CDT, Height, 80.057, kg, 06/13/22 14:35:00 CDT, Weight metoprolol 2-0 Yes 25 mg = 1 Me moria tartrate 25 7-29 tab, PO, l mg oral 16:28: BID, # 60 Alejandra nn tablet 00 tab, 0 Refill(s), Pharmacy: [facility], 162.56, cm, 06/13/22 14:35:00 CDT, Height, 80.057, kg, 06/13/22 14:35:00 CDT, Weight predniSONE 2-0 Yes 20 mg = 1 Me mor[place] 20 mg oral 7-29 tab, PO, l tablet 16:28: Daily, X 3 [place]jandra nn 00 day, # 3 tab, 0 Refill(s), Pharmacy: [facility], 162.56, cm, 06/13/22 14:35:00 CDT, Height, 80.057, kg, 06/13/22 14:35:00 CDT, Weight metoprolol 2021-0 Yes 25 mg = 1 Me moria tartrate 25 7-29 tab, PO, l mg oral 16:28: BID, # 60 Alejandra nn tablet 00 tab, 0 Refill(s), Pharmacy: [facility], 162.56, cm, 06/13/22 14:35:00 CDT, Height, 80.057, kg, 06/13/22 14:35:00 CDT, Weight predniSONE 2021-0 Yes 20 mg = 1 Me moria 20 mg oral 7-29 tab, PO, l tablet 16:28: Daily, X 3 Alejandra nn day, # 3 tab, 0 Refill(s), Pharmacy: [facility], 162.56, cm, 06/13/22 14:35:00 CDT, Height, 80.057, kg, 06/13/22 14:35:00 CDT, Weight metoprolol 2-0 Yes 25 mg = 1 Me moria tartrate 25 7-29 tab, PO, l mg oral 16:28: BID, # 60 Alejandra nn tablet 00 tab, 0 Refill(s), Pharmacy: [facility], 162.56, cm, 06/13/22 14:35:00 CDT, Height, 80.057, kg, 06/13/22 14:35:00 CDT, Weight predniSONE 2-0 Yes 20 mg = 1 Me moria 20 mg oral 7-29 tab, PO, l tablet 16:28: Daily, X 3 Alejandra nn 00 day, # 3 tab, 0 Refill(s), Pharmacy: [facility], 162.56, cm, 06/13/22 14:35:00 CDT, Height, 80.057, kg, 06/13/22 14:35:00 CDT, Weight metoprolol 2-0 Yes 25 mg = 1 Me moria tartrate 25 7-29 tab, PO, l mg oral 16:28: BID, # 60 Alejandra nn tablet 00 tab, 0 Refill(s), Pharmacy: [facility], 162.56, cm, 06/13/22 14:35:00 CDT, Height, 80.057, kg, 06/13/22 14:35:00 CDT, Weight predniSONE 2021-0 Yes 20 mg = 1 Me moria 20 mg oral 7-29 tab, PO, l tablet 16:28: Daily, X 3 Alejandra nn 00 day, # 3 tab, 0 Refill(s), Pharmacy: [facility], 162.56, cm, 06/13/22 14:35:00 CDT, Height, 80.057, kg, 06/13/22 14:35:00 CDT, Weight metoprolol 2021-0 Yes 25 mg = 1 Me moria tartrate 25 7-29 tab, PO, l mg oral 16:28: BID, # 60 Alejandra nn tablet 00 tab, 0 Refill(s), Pharmacy: [facility], 162.56, cm, 06/13/22 14:35:00 CDT, Height, 80.057, kg, 06/13/22 14:35:00 CDT, Weight predniSONE 2-0 Yes 20 mg = 1 Me moria 20 mg oral 7-29 tab, PO, l tablet 16:28: Daily, X 3 Alejandra nn 00 day, # 3 tab, 0 Refill(s), Pharmacy: [facility], 162.56, cm, 06/13/22 14:35:00 CDT, Height, 80.057, kg, 06/13/22 14:35:00 CDT, Weight metoprolol 2-0 Yes 25 mg = 1 Me moria tartrate 25 7-29 tab, PO, l mg oral 16:28: BID, # 60 Alejandra nn tablet 00 tab, 0 Refill(s), Pharmacy: [facility], 162.56, cm, 06/13/22 14:35:00 CDT, Height, 80.057, kg, 06/13/22 14:35:00 CDT, Weight predniSONE 2-0 Yes 20 mg = 1 Me moria 20 mg oral 7-29 tab, PO, l tablet 16:28: Daily, X 3 Alejandra nn 00 day, # 3 tab, 0 Refill(s), Pharmacy: [facility], 162.56, cm, 06/13/22 14:35:00 CDT, Height, 80.057, kg, 06/13/22 14:35:00 CDT, Weight metoprolol 2021-0 Yes 25 mg = 1 Me moria tartrate 25 7-29 tab, PO, l mg oral 16:28: BID, # 60 Alejandra nn tablet 00 tab, 0 Refill(s), Pharmacy: [facility], 162.56, cm, 06/13/22 14:35:00 CDT, Height, 80.057, kg, 06/13/22 14:35:00 CDT, Weight predniSONE 2021-0 Yes 20 mg = 1 Me moria 20 mg oral 7-29 tab, PO, l tablet 16:28: Daily, X 3 Alejandra nn day, # 3 tab, 0 Refill(s), Pharmacy: [facility], 162.56, cm, 06/13/22 14:35:00 CDT, Height, 80.057, kg, 06/13/22 14:35:00 CDT, Weight metoprolol 2-0 Yes 25 mg = 1 Me moria tartrate 25 7-29 tab, PO, l mg oral 16:28: BID, # 60 Alejandra nn tablet 00 tab, 0 Refill(s), Pharmacy: [facility], 162.56, cm, 06/13/22 14:35:00 CDT, Height, 80.057, kg, 06/13/22 14:35:00 CDT, Weight predniSONE 2-0 Yes 20 mg = 1 Me moria 20 mg oral 7-29 tab, PO, l tablet 16:28: Daily, X 3 Alejandra nn 00 day, # 3 tab, 0 Refill(s), Pharmacy: [facility], 162.56, cm, 06/13/22 14:35:00 CDT, Height, 80.057, kg, 06/13/22 14:35:00 CDT, Weight metoprolol 2-0 Yes 25 mg = 1 Me moria tartrate 25 7-29 tab, PO, l mg oral 16:28: BID, # 60 Alejandra nn tablet 00 tab, 0 Refill(s), Pharmacy: [facility], 162.56, cm, 06/13/22 14:35:00 CDT, Height, 80.057, kg, 06/13/22 14:35:00 CDT, Weight predniSONE 2021-0 Yes 20 mg = 1 Me moria 20 mg oral 7-29 tab, PO, l tablet 16:28: Daily, X 3 Alejandra nn 00 day, # 3 tab, 0 Refill(s), Pharmacy: [facility], 162.56, cm, 06/13/22 14:35:00 CDT, Height, 80.057, kg, 06/13/22 14:35:00 CDT, Weight metoprolol 2021-0 Yes 25 mg = 1 Me moria tartrate 25 7-29 tab, PO, l mg oral 16:28: BID, # 60 Alejandra nn tablet 00 tab, 0 Refill(s), Pharmacy: [facility], 162.56, cm, 06/13/22 14:35:00 CDT, Height, 80.057, kg, 06/13/22 14:35:00 CDT, Weight predniSONE 2-0 Yes 20 mg = 1 Me moria 20 mg oral 7-29 tab, PO, l tablet 16:28: Daily, X 3 Alejandra nn 00 day, # 3 tab, 0 Refill(s), Pharmacy: [facility], 162.56, cm, 06/13/22 14:35:00 CDT, Height, 80.057, kg, 06/13/22 14:35:00 CDT, Weight metoprolol 2-0 Yes 25 mg = 1 Me moria tartrate 25 7-29 tab, PO, l mg oral 16:28: BID, # 60 Alejandra nn tablet 00 tab, 0 Refill(s), Pharmacy: [facility], 162.56, cm, 06/13/22 14:35:00 CDT, Height, 80.057, kg, 06/13/22 14:35:00 CDT, Weight predniSONE 2-0 Yes 20 mg = 1 Me moria 20 mg oral 7-29 tab, PO, l tablet 16:28: Daily, X 3 Alejandra nn 00 day, # 3 tab, 0 Refill(s), Pharmacy: [facility], 162.56, cm, 06/13/22 14:35:00 CDT, Height, 80.057, kg, 06/13/22 14:35:00 CDT, Weight metoprolol 2021-0 Yes 25 mg = 1 Me moria tartrate 25 7-29 tab, PO, l mg oral 16:28: BID, # 60 Alejandra nn tablet 00 tab, 0 Refill(s), Pharmacy: [facility], 162.56, cm, 06/13/22 14:35:00 CDT, Height, 80.057, kg, 06/13/22 14:35:00 CDT, Weight predniSONE 2021-0 Yes 20 mg = 1 Me moria 20 mg oral 7-29 tab, PO, l tablet 16:28: Daily, X 3 Alejandra nn day, # 3 tab, 0 Refill(s), Pharmacy: [facility], 162.56, cm, 06/13/22 14:35:00 CDT, Height, 80.057, kg, 06/13/22 14:35:00 CDT, Weight metoprolol 2-0 Yes 25 mg = 1 Me moria tartrate 25 7-29 tab, PO, l mg oral 16:28: BID, # 60 Alejandra nn tablet 00 tab, 0 Refill(s), Pharmacy: [facility], 162.56, cm, 06/13/22 14:35:00 CDT, Height, 80.057, kg, 06/13/22 14:35:00 CDT, Weight predniSONE 2-0 Yes 20 mg = 1 Me moria 20 mg oral 7-29 tab, PO, l tablet 16:28: Daily, X 3 Alejandra nn 00 day, # 3 tab, 0 Refill(s), Pharmacy: [facility], 162.56, cm, 06/13/22 14:35:00 CDT, Height, 80.057, kg, 06/13/22 14:35:00 CDT, Weight metoprolol 2-0 Yes 25 mg = 1 Me moria tartrate 25 7-29 tab, PO, l mg oral 16:28: BID, # 60 Alejandra nn tablet 00 tab, 0 Refill(s), Pharmacy: [facility], 162.56, cm, 06/13/22 14:35:00 CDT, Height, 80.057, kg, 06/13/22 14:35:00 CDT, Weight predniSONE 2021-0 Yes 20 mg = 1 Me moria 20 mg oral 7-29 tab, PO, l tablet 16:28: Daily, X 3 Alejandra nn 00 day, # 3 tab, 0 Refill(s), Pharmacy: [facility], 162.56, cm, 06/13/22 14:35:00 CDT, Height, 80.057, kg, 06/13/22 14:35:00 CDT, Weight metoprolol 2021-0 Yes 25 mg = 1 Me moria tartrate 25 7-29 tab, PO, l mg oral 16:28: BID, # 60 Alejandra nn tablet 00 tab, 0 Refill(s), Pharmacy: [facility], 162.56, cm, 06/13/22 14:35:00 CDT, Height, 80.057, kg, 06/13/22 14:35:00 CDT, Weight predniSONE 2-0 Yes 20 mg = 1 Me moria 20 mg oral 7-29 tab, PO, l tablet 16:28: Daily, X 3 Alejandra nn 00 day, # 3 tab, 0 Refill(s), Pharmacy: [facility], 162.56, cm, 06/13/22 14:35:00 CDT, Height, 80.057, kg, 06/13/22 14:35:00 CDT, Weight metoprolol 2-0 Yes 25 mg = 1 Me moria tartrate 25 7-29 tab, PO, l mg oral 16:28: BID, # 60 Alejandra nn tablet 00 tab, 0 Refill(s), Pharmacy: [facility], 162.56, cm, 06/13/22 14:35:00 CDT, Height, 80.057, kg, 06/13/22 14:35:00 CDT, Weight predniSONE 2-0 Yes 20 mg = 1 Me moria 20 mg oral 7-29 tab, PO, l tablet 16:28: Daily, X 3 Alejandra nn 00 day, # 3 tab, 0 Refill(s), Pharmacy: [facility], 162.56, cm, 06/13/22 14:35:00 CDT, Height, 80.057, kg, 06/13/22 14:35:00 CDT, Weight metoprolol 2021-0 Yes 25 mg = 1 Me moria tartrate 25 7-29 tab, PO, l mg oral 16:28: BID, # 60 Alejandra nn tablet 00 tab, 0 Refill(s), Pharmacy: [facility], 162.56, cm, 06/13/22 14:35:00 CDT, Height, 80.057, kg, 06/13/22 14:35:00 CDT, Weight predniSONE 2021-0 Yes 20 mg = 1 Me moria 20 mg oral 7-29 tab, PO, l tablet 16:28: Daily, X 3 Alejandra nn day, # 3 tab, 0 Refill(s), Pharmacy: [facility], 162.56, cm, 06/13/22 14:35:00 CDT, Height, 80.057, kg, 06/13/22 14:35:00 CDT, Weight metoprolol 2-0 Yes 25 mg = 1 Me moria tartrate 25 7-29 tab, PO, l mg oral 16:28: BID, # 60 Alejandra nn tablet 00 tab, 0 Refill(s), Pharmacy: [facility], 162.56, cm, 06/13/22 14:35:00 CDT, Height, 80.057, kg, 06/13/22 14:35:00 CDT, Weight predniSONE 2-0 Yes 20 mg = 1 Me moria 20 mg oral 7-29 tab, PO, l tablet 16:28: Daily, X 3 Alejandra nn 00 day, # 3 tab, 0 Refill(s), Pharmacy: [facility], 162.56, cm, 06/13/22 14:35:00 CDT, Height, 80.057, kg, 06/13/22 14:35:00 CDT, Weight metoprolol 2-0 Yes 25 mg = 1 Me moria tartrate 25 7-29 tab, PO, l mg oral 16:28: BID, # 60 Alejandra nn tablet 00 tab, 0 Refill(s), Pharmacy: [facility], 162.56, cm, 06/13/22 14:35:00 CDT, Height, 80.057, kg, 06/13/22 14:35:00 CDT, Weight predniSONE 2021-0 Yes 20 mg = 1 Me moria 20 mg oral 7-29 tab, PO, l tablet 16:28: Daily, X 3 Alejandra nn 00 day, # 3 tab, 0 Refill(s), Pharmacy: [facility], 162.56, cm, 06/13/22 14:35:00 CDT, Height, 80.057, kg, 06/13/22 14:35:00 CDT, Weight metoprolol 2021-0 Yes 25 mg = 1 Me moria tartrate 25 7-29 tab, PO, l mg oral 16:28: BID, # 60 Alejandra nn tablet 00 tab, 0 Refill(s), Pharmacy: [facility], 162.56, cm, 06/13/22 14:35:00 CDT, Height, 80.057, kg, 06/13/22 14:35:00 CDT, Weight predniSONE 2-0 Yes 20 mg = 1 Me moria 20 mg oral 7-29 tab, PO, l tablet 16:28: Daily, X 3 Alejandra nn 00 day, # 3 tab, 0 Refill(s), Pharmacy: [facility], 162.56, cm, 06/13/22 14:35:00 CDT, Height, 80.057, kg, 06/13/22 14:35:00 CDT, Weight metoprolol 2-0 Yes 25 mg = 1 Me moria tartrate 25 7-29 tab, PO, l mg oral 16:28: BID, # 60 Alejandra nn tablet 00 tab, 0 Refill(s), Pharmacy: [facility], 162.56, cm, 06/13/22 14:35:00 CDT, Height, 80.057, kg, 06/13/22 14:35:00 CDT, Weight predniSONE 2-0 Yes 20 mg = 1 Me moria 20 mg oral 7-29 tab, PO, l tablet 16:28: Daily, X 3 Alejandra nn 00 day, # 3 tab, 0 Refill(s), Pharmacy: [facility], 162.56, cm, 06/13/22 14:35:00 CDT, Height, 80.057, kg, 06/13/22 14:35:00 CDT, Weight metoprolol 2021-0 Yes 25 mg = 1 Me moria tartrate 25 7-29 tab, PO, l mg oral 16:28: BID, # 60 Alejandra nn tablet 00 tab, 0 Refill(s), Pharmacy: [facility], 162.56, cm, 06/13/22 14:35:00 CDT, Height, 80.057, kg, 06/13/22 14:35:00 CDT, Weight predniSONE 2021-0 Yes 20 mg = 1 Me moria 20 mg oral 7-29 tab, PO, l tablet 16:28: Daily, X 3 Alejandra nn day, # 3 tab, 0 Refill(s), Pharmacy: [facility], 162.56, cm, 06/13/22 14:35:00 CDT, Height, 80.057, kg, 06/13/22 14:35:00 CDT, Weight metoprolol 2-0 Yes 25 mg = 1 Me moria tartrate 25 7-29 tab, PO, l mg oral 16:28: BID, # 60 Alejandra nn tablet 00 tab, 0 Refill(s), Pharmacy: [facility], 162.56, cm, 06/13/22 14:35:00 CDT, Height, 80.057, kg, 06/13/22 14:35:00 CDT, Weight predniSONE 2-0 Yes 20 mg = 1 Me moria 20 mg oral 7-29 tab, PO, l tablet 16:28: Daily, X 3 Alejandra nn 00 day, # 3 tab, 0 Refill(s), Pharmacy: [facility], 162.56, cm, 06/13/22 14:35:00 CDT, Height, 80.057, kg, 06/13/22 14:35:00 CDT, Weight metoprolol 2-0 Yes 25 mg = 1 Me moria tartrate 25 7-29 tab, PO, l mg oral 16:28: BID, # 60 Alejandra nn tablet 00 tab, 0 Refill(s), Pharmacy: [facility], 162.56, cm, 06/13/22 14:35:00 CDT, Height, 80.057, kg, 06/13/22 14:35:00 CDT, Weight predniSONE 2021-0 Yes 20 mg = 1 Me moria 20 mg oral 7-29 tab, PO, l tablet 16:28: Daily, X 3 Alejandra nn 00 day, # 3 tab, 0 Refill(s), Pharmacy: [facility], 162.56, cm, 06/13/22 14:35:00 CDT, Height, 80.057, kg, 06/13/22 14:35:00 CDT, Weight metoprolol 2021-0 Yes 25 mg = 1 Me moria tartrate 25 7-29 tab, PO, l mg oral 16:28: BID, # 60 Alejandra nn tablet 00 tab, 0 Refill(s), Pharmacy: [facility], 162.56, cm, 06/13/22 14:35:00 CDT, Height, 80.057, kg, 06/13/22 14:35:00 CDT, Weight predniSONE 2-0 Yes 20 mg = 1 Me moria 20 mg oral 7-29 tab, PO, l tablet 16:28: Daily, X 3 Alejandra nn 00 day, # 3 tab, 0 Refill(s), Pharmacy: [facility], 162.56, cm, 06/13/22 14:35:00 CDT, Height, 80.057, kg, 06/13/22 14:35:00 CDT, Weight metoprolol 2-0 Yes 25 mg = 1 Me moria tartrate 25 7-29 tab, PO, l mg oral 16:28: BID, # 60 Alejandra nn tablet 00 tab, 0 Refill(s), Pharmacy: [facility], 162.56, cm, 06/13/22 14:35:00 CDT, Height, 80.057, kg, 06/13/22 14:35:00 CDT, Weight predniSONE 2-0 Yes 20 mg = 1 Me moria 20 mg oral 7-29 tab, PO, l tablet 16:28: Daily, X 3 Alejandra nn 00 day, # 3 tab, 0 Refill(s), Pharmacy: [facility], 162.56, cm, 06/13/22 14:35:00 CDT, Height, 80.057, kg, 06/13/22 14:35:00 CDT, Weight metoprolol 2021-0 Yes 25 mg = 1 Me moria tartrate 25 7-29 tab, PO, l mg oral 16:28: BID, # 60 Alejandra nn tablet 00 tab, 0 Refill(s), Pharmacy: [facility], 162.56, cm, 06/13/22 14:35:00 CDT, Height, 80.057, kg, 06/13/22 14:35:00 CDT, Weight predniSONE 2021-0 Yes 20 mg = 1 Me moria 20 mg oral 7-29 tab, PO, l tablet 16:28: Daily, X 3 Alejandra nn day, # 3 tab, 0 Refill(s), Pharmacy: [facility], 162.56, cm, 06/13/22 14:35:00 CDT, Height, 80.057, kg, 06/13/22 14:35:00 CDT, Weight metoprolol 2-0 Yes 25 mg = 1 Me moria tartrate 25 7-29 tab, PO, l mg oral 16:28: BID, # 60 Alejandra nn tablet 00 tab, 0 Refill(s), Pharmacy: [facility], 162.56, cm, 06/13/22 14:35:00 CDT, Height, 80.057, kg, 06/13/22 14:35:00 CDT, Weight predniSONE 2-0 Yes 20 mg = 1 Me moria 20 mg oral 7-29 tab, PO, l tablet 16:28: Daily, X 3 Alejandra nn 00 day, # 3 tab, 0 Refill(s), Pharmacy: [facility], 162.56, cm, 06/13/22 14:35:00 CDT, Height, 80.057, kg, 06/13/22 14:35:00 CDT, Weight metoprolol 2-0 Yes 25 mg = 1 Me moria tartrate 25 7-29 tab, PO, l mg oral 16:28: BID, # 60 Alejandra nn tablet 00 tab, 0 Refill(s), Pharmacy: [facility], 162.56, cm, 06/13/22 14:35:00 CDT, Height, 80.057, kg, 06/13/22 14:35:00 CDT, Weight predniSONE 2021-0 Yes 20 mg = 1 Me moria 20 mg oral 7-29 tab, PO, l tablet 16:28: Daily, X 3 Alejandra nn 00 day, # 3 tab, 0 Refill(s), Pharmacy: [facility], 162.56, cm, 06/13/22 14:35:00 CDT, Height, 80.057, kg, 06/13/22 14:35:00 CDT, Weight metoprolol 2021-0 Yes 25 mg = 1 Me moria tartrate 25 7-29 tab, PO, l mg oral 16:28: BID, # 60 Alejandra nn tablet 00 tab, 0 Refill(s), Pharmacy: [facility], 162.56, cm, 06/13/22 14:35:00 CDT, Height, 80.057, kg, 06/13/22 14:35:00 CDT, Weight predniSONE 2-0 Yes 20 mg = 1 Me moria 20 mg oral 7-29 tab, PO, l tablet 16:28: Daily, X 3 Alejandra nn 00 day, # 3 tab, 0 Refill(s), Pharmacy: [facility], 162.56, cm, 06/13/22 14:35:00 CDT, Height, 80.057, kg, 06/13/22 14:35:00 CDT, Weight metoprolol 2-0 Yes 25 mg = 1 Me moria tartrate 25 7-29 tab, PO, l mg oral 16:28: BID, # 60 Alejandra nn tablet 00 tab, 0 Refill(s), Pharmacy: [facility], 162.56, cm, 06/13/22 14:35:00 CDT, Height, 80.057, kg, 06/13/22 14:35:00 CDT, Weight predniSONE 2-0 Yes 20 mg = 1 Me moria 20 mg oral 7-29 tab, PO, l tablet 16:28: Daily, X 3 Alejandra nn 00 day, # 3 tab, 0 Refill(s), Pharmacy: [facility], 162.56, cm, 06/13/22 14:35:00 CDT, Height, 80.057, kg, 06/13/22 14:35:00 CDT, Weight metoprolol 2021-0 Yes 25 mg = 1 Me moria tartrate 25 7-29 tab, PO, l mg oral 16:28: BID, # 60 Alejandra nn tablet 00 tab, 0 Refill(s), Pharmacy: [facility], 162.56, cm, 06/13/22 14:35:00 CDT, Height, 80.057, kg, 06/13/22 14:35:00 CDT, Weight predniSONE 2021-0 Yes 20 mg = 1 Me moria 20 mg oral 7-29 tab, PO, l tablet 16:28: Daily, X 3 Alejandra nn day, # 3 tab, 0 Refill(s), Pharmacy: [facility], 162.56, cm, 06/13/22 14:35:00 CDT, Height, 80.057, kg, 06/13/22 14:35:00 CDT, Weight metoprolol 2-0 Yes 25 mg = 1 Me moria tartrate 25 7-29 tab, PO, l mg oral 16:28: BID, # 60 Alejandra nn tablet 00 tab, 0 Refill(s), Pharmacy: [facility], 162.56, cm, 06/13/22 14:35:00 CDT, Height, 80.057, kg, 06/13/22 14:35:00 CDT, Weight predniSONE 2-0 Yes 20 mg = 1 Me moria 20 mg oral 7-29 tab, PO, l tablet 16:28: Daily, X 3 Alejandra nn 00 day, # 3 tab, 0 Refill(s), Pharmacy: [facility], 162.56, cm, 06/13/22 14:35:00 CDT, Height, 80.057, kg, 06/13/22 14:35:00 CDT, Weight metoprolol 2-0 Yes 25 mg = 1 Me moria tartrate 25 7-29 tab, PO, l mg oral 16:28: BID, # 60 Alejandra nn tablet 00 tab, 0 Refill(s), Pharmacy: [facility], 162.56, cm, 06/13/22 14:35:00 CDT, Height, 80.057, kg, 06/13/22 14:35:00 CDT, Weight predniSONE 2021-0 Yes 20 mg = 1 Me moria 20 mg oral 7-29 tab, PO, l tablet 16:28: Daily, X 3 Alejandra nn 00 day, # 3 tab, 0 Refill(s), Pharmacy: [facility], 162.56, cm, 06/13/22 14:35:00 CDT, Height, 80.057, kg, 06/13/22 14:35:00 CDT, Weight metoprolol 2021-0 Yes 25 mg = 1 Me moria tartrate 25 7-29 tab, PO, l mg oral 16:28: BID, # 60 Alejandra nn tablet 00 tab, 0 Refill(s), Pharmacy: [facility], 162.56, cm, 06/13/22 14:35:00 CDT, Height, 80.057, kg, 06/13/22 14:35:00 CDT, Weight predniSONE 2-0 Yes 20 mg = 1 Me moria 20 mg oral 7-29 tab, PO, l tablet 16:28: Daily, X 3 Alejandra nn 00 day, # 3 tab, 0 Refill(s), Pharmacy: [facility], 162.56, cm, 06/13/22 14:35:00 CDT, Height, 80.057, kg, 06/13/22 14:35:00 CDT, Weight metoprolol 2-0 Yes 25 mg = 1 Me moria tartrate 25 7-29 tab, PO, l mg oral 16:28: BID, # 60 Alejandra nn tablet 00 tab, 0 Refill(s), Pharmacy: [facility], 162.56, cm, 06/13/22 14:35:00 CDT, Height, 80.057, kg, 06/13/22 14:35:00 CDT, Weight predniSONE 2-0 Yes 20 mg = 1 Me moria 20 mg oral 7-29 tab, PO, l tablet 16:28: Daily, X 3 Alejandra nn 00 day, # 3 tab, 0 Refill(s), Pharmacy: [facility], 162.56, cm, 06/13/22 14:35:00 CDT, Height, 80.057, kg, 06/13/22 14:35:00 CDT, Weight metoprolol 2021-0 Yes 25 mg = 1 Me moria tartrate 25 7-29 tab, PO, l mg oral 16:28: BID, # 60 Alejandra nn tablet 00 tab, 0 Refill(s), Pharmacy: [facility], 162.56, cm, 06/13/22 14:35:00 CDT, Height, 80.057, kg, 06/13/22 14:35:00 CDT, Weight predniSONE 2021-0 Yes 20 mg = 1 Me moria 20 mg oral 7-29 tab, PO, l tablet 16:28: Daily, X 3 Alejandra nn day, # 3 tab, 0 Refill(s), Pharmacy: [facility], 162.56, cm, 06/13/22 14:35:00 CDT, Height, 80.057, kg, 06/13/22 14:35:00 CDT, Weight metoprolol 2-0 Yes 25 mg = 1 Me moria tartrate 25 7-29 tab, PO, l mg oral 16:28: BID, # 60 Alejandra nn tablet 00 tab, 0 Refill(s), Pharmacy: [facility], 162.56, cm, 06/13/22 14:35:00 CDT, Height, 80.057, kg, 06/13/22 14:35:00 CDT, Weight predniSONE 2-0 Yes 20 mg = 1 Me moria 20 mg oral 7-29 tab, PO, l tablet 16:28: Daily, X 3 Alejandra nn 00 day, # 3 tab, 0 Refill(s), Pharmacy: [facility], 162.56, cm, 06/13/22 14:35:00 CDT, Height, 80.057, kg, 06/13/22 14:35:00 CDT, Weight metoprolol 2-0 Yes 25 mg = 1 Me moria tartrate 25 7-29 tab, PO, l mg oral 16:28: BID, # 60 Alejandra nn tablet 00 tab, 0 Refill(s), Pharmacy: [facility], 162.56, cm, 06/13/22 14:35:00 CDT, Height, 80.057, kg, 06/13/22 14:35:00 CDT, Weight predniSONE 2021-0 Yes 20 mg = 1 Me moria 20 mg oral 7-29 tab, PO, l tablet 16:28: Daily, X 3 Alejandra nn 00 day, # 3 tab, 0 Refill(s), Pharmacy: [facility], 162.56, cm, 06/13/22 14:35:00 CDT, Height, 80.057, kg, 06/13/22 14:35:00 CDT, Weight metoprolol 2021-0 Yes 25 mg = 1 Me moria tartrate 25 7-29 tab, PO, l mg oral 16:28: BID, # 60 Alejandra nn tablet 00 tab, 0 Refill(s), Pharmacy: [facility], 162.56, cm, 06/13/22 14:35:00 CDT, Height, 80.057, kg, 06/13/22 14:35:00 CDT, Weight predniSONE 2-0 Yes 20 mg = 1 Me moria 20 mg oral 7-29 tab, PO, l tablet 16:28: Daily, X 3 Alejandra nn 00 day, # 3 tab, 0 Refill(s), Pharmacy: [facility], 162.56, cm, 06/13/22 14:35:00 CDT, Height, 80.057, kg, 06/13/22 14:35:00 CDT, Weight metoprolol 2-0 Yes 25 mg = 1 Me moria tartrate 25 7-29 tab, PO, l mg oral 16:28: BID, # 60 Alejandra nn tablet 00 tab, 0 Refill(s), Pharmacy: [facility], 162.56, cm, 06/13/22 14:35:00 CDT, Height, 80.057, kg, 06/13/22 14:35:00 CDT, Weight predniSONE 2-0 Yes 20 mg = 1 Me moria 20 mg oral 7-29 tab, PO, l tablet 16:28: Daily, X 3 Alejandra nn 00 day, # 3 tab, 0 Refill(s), Pharmacy: [facility], 162.56, cm, 06/13/22 14:35:00 CDT, Height, 80.057, kg, 06/13/22 14:35:00 CDT, Weight metoprolol 2021-0 Yes 25 mg = 1 Me moria tartrate 25 7-29 tab, PO, l mg oral 16:28: BID, # 60 Alejandra nn tablet 00 tab, 0 Refill(s), Pharmacy: [facility], 162.56, cm, 06/13/22 14:35:00 CDT, Height, 80.057, kg, 06/13/22 14:35:00 CDT, Weight predniSONE 2021-0 Yes 20 mg = 1 Me moria 20 mg oral 7-29 tab, PO, l tablet 16:28: Daily, X 3 Alejandra nn day, # 3 tab, 0 Refill(s), Pharmacy: [facility], 162.56, cm, 06/13/22 14:35:00 CDT, Height, 80.057, kg, 06/13/22 14:35:00 CDT, Weight metoprolol 2-0 Yes 25 mg = 1 Me moria tartrate 25 7-29 tab, PO, l mg oral 16:28: BID, # 60 Alejandra nn tablet 00 tab, 0 Refill(s), Pharmacy: [facility], 162.56, cm, 06/13/22 14:35:00 CDT, Height, 80.057, kg, 06/13/22 14:35:00 CDT, Weight predniSONE 2-0 Yes 20 mg = 1 Me moria 20 mg oral 7-29 tab, PO, l tablet 16:28: Daily, X 3 Alejandra nn 00 day, # 3 tab, 0 Refill(s), Pharmacy: [facility], 162.56, cm, 06/13/22 14:35:00 CDT, Height, 80.057, kg, 06/13/22 14:35:00 CDT, Weight metoprolol 2-0 Yes 25 mg = 1 Me moria tartrate 25 7-29 tab, PO, l mg oral 16:28: BID, # 60 Alejandra nn tablet 00 tab, 0 Refill(s), Pharmacy: [facility], 162.56, cm, 06/13/22 14:35:00 CDT, Height, 80.057, kg, 06/13/22 14:35:00 CDT, Weight predniSONE 2021-0 Yes 20 mg = 1 Me moria 20 mg oral 7-29 tab, PO, l tablet 16:28: Daily, X 3 Alejandra nn 00 day, # 3 tab, 0 Refill(s), Pharmacy: [facility], 162.56, cm, 06/13/22 14:35:00 CDT, Height, 80.057, kg, 06/13/22 14:35:00 CDT, Weight metoprolol 2021-0 Yes 25 mg = 1 Me moria tartrate 25 7-29 tab, PO, l mg oral 16:28: BID, # 60 Alejandra nn tablet 00 tab, 0 Refill(s), Pharmacy: [facility], 162.56, cm, 06/13/22 14:35:00 CDT, Height, 80.057, kg, 06/13/22 14:35:00 CDT, Weight predniSONE 2-0 Yes 20 mg = 1 Me moria 20 mg oral 7-29 tab, PO, l tablet 16:28: Daily, X 3 Alejandra nn 00 day, # 3 tab, 0 Refill(s), Pharmacy: [facility], 162.56, cm, 06/13/22 14:35:00 CDT, Height, 80.057, kg, 06/13/22 14:35:00 CDT, Weight metoprolol 2-0 Yes 25 mg = 1 Me moria tartrate 25 7-29 tab, PO, l mg oral 16:28: BID, # 60 Alejandra nn tablet 00 tab, 0 Refill(s), Pharmacy: [facility], 162.56, cm, 06/13/22 14:35:00 CDT, Height, 80.057, kg, 06/13/22 14:35:00 CDT, Weight predniSONE 2-0 Yes 20 mg = 1 Me moria 20 mg oral 7-29 tab, PO, l tablet 16:28: Daily, X 3 Alejandra nn 00 day, # 3 tab, 0 Refill(s), Pharmacy: [facility], 162.56, cm, 06/13/22 14:35:00 CDT, Height, 80.057, kg, 06/13/22 14:35:00 CDT, Weight metoprolol 2021-0 Yes 25 mg = 1 Me moria tartrate 25 7-29 tab, PO, l mg oral 16:28: BID, # 60 Alejandra nn tablet 00 tab, 0 Refill(s), Pharmacy: [facility], 162.56, cm, 06/13/22 14:35:00 CDT, Height, 80.057, kg, 06/13/22 14:35:00 CDT, Weight predniSONE 2021-0 Yes 20 mg = 1 Me moria 20 mg oral 7-29 tab, PO, l tablet 16:28: Daily, X 3 Alejandra nn day, # 3 tab, 0 Refill(s), Pharmacy: [facility], 162.56, cm, 06/13/22 14:35:00 CDT, Height, 80.057, kg, 06/13/22 14:35:00 CDT, Weight metoprolol 2-0 Yes 25 mg = 1 Me moria tartrate 25 7-29 tab, PO, l mg oral 16:28: BID, # 60 Alejandra nn tablet 00 tab, 0 Refill(s), Pharmacy: [facility], 162.56, cm, 06/13/22 14:35:00 CDT, Height, 80.057, kg, 06/13/22 14:35:00 CDT, Weight predniSONE 2021-0 Yes 20 mg = 1 Me moria 20 mg oral 7-29 tab, PO, l tablet 16:28: Daily, X 3 Alejandra nn 00 day, # 3 tab, 0 Refill(s), Pharmacy: [facility], 162.56, cm, 06/13/22 14:35:00 CDT, Height, 80.057, kg, 06/13/22 14:35:00 CDT, Weight metoprolol Yes 25 mg = 1 Me moria tartrate 25 7-29 tab, PO, l mg oral 16:28: BID, # 60 Alejandra nn tablet 00 tab, 0 Refill(s), Pharmacy: [facility], 162.56, cm, 06/13/22 14:35:00 CDT, Height, 80.057, kg, 06/13/22 14:35:00 CDT, Weight benzonatate Yes 200 mg = 1 Memoria 200 mg oral 7-29 cap, PO, l capsule 16:27: TID, do [place] 00 not crush or chew, X 10 day, # 30 cap, 0 Refill(s), Pharmacy: [facility], 162.56, cm, 06/13/22 14:35:00 CDT, Height, 80.057, kg, 06/13/22 14:35:00 CDT, Weight bumetanide 0 Yes 1 mg = 1 Mem oria 1 mg oral 7-29 tab, PO, l tablet 16:27: BID, # 60 Harish n 00 tab, 1 Refill(s), Pharmacy: [facility], 162.56, cm, 06/13/22 14:35:00 CDT, Height, 80.057, kg, 06/13/22 14:35:00 CDT, Weight dextrometho 2021-0 Yes 10 mL, PO, Memoria rphan-guaiF 7-29 Q6H, PRN l ENesin 10 16:27: Cough, X Herm nupur mg-200 mg/5 00 14 day, # mL oral 120 mL, 0 liquid Refill(s), Pharmacy: [facility], 162.56, cm, 06/13/22 14:35:00 CDT, Height, 80.057, kg, 06/13/22 14:35:00 CDT, Weight benzonatate 2021-0 Yes 200 mg = 1 Memoria 200 mg oral 7-29 cap, PO, l capsule 16:27: TID, do [place] 00 not crush or chew, X 10 day, # 30 cap, 0 Refill(s), Pharmacy: [facility], 162.56, cm, 06/13/22 14:35:00 CDT, Height, 80.057, kg, 06/13/22 14:35:00 CDT, Weight bumetanide 2021-0 Yes 1 mg = 1 Mem oria 1 mg oral 7-29 tab, PO, l tablet 16:27: BID, # 60 Harish n 00 tab, 1 Refill(s), Pharmacy: [facility], 162.56, cm, 06/13/22 14:35:00 CDT, Height, 80.057, kg, 06/13/22 14:35:00 CDT, Weight dextrometho 2021-0 Yes 10 mL, PO, Memoria rphan-guaiF 7-29 Q6H, PRN l ENesin 10 16:27: Cough, X Herm nupur mg-200 mg/5 00 14 day, # mL oral 120 mL, 0 liquid Refill(s), Pharmacy: [facility], 162.56, cm, 06/13/22 14:35:00 CDT, Height, 80.057, kg, 06/13/22 14:35:00 CDT, Weight benzonatate 2021-0 Yes 200 mg = 1 Memoria 200 mg oral 7-29 cap, PO, l capsule 16:27: TID, do [place] 00 not crush or chew, X 10 day, # 30 cap, 0 Refill(s), Pharmacy: [facility], 162.56, cm, 06/13/22 14:35:00 CDT, Height, 80.057, kg, 06/13/22 14:35:00 CDT, Weight bumetanide 2021-0 Yes 1 mg = 1 Mem oria 1 mg oral 7-29 tab, PO, l tablet 16:27: BID, # 60 Harish n 00 tab, 1 Refill(s), Pharmacy: [facility], 162.56, cm, 06/13/22 14:35:00 CDT, Height, 80.057, kg, 06/13/22 14:35:00 CDT, Weight dextrometho 2-0 Yes 10 mL, PO, Memoria rphan-guaiF 7-29 Q6H, PRN l ENesin 10 16:27: Cough, X Herm nupur mg-200 mg/5 14 day, # mL oral 120 mL, 0 liquid Refill(s), Pharmacy: [facility], 162.56, cm, 06/13/22 14:35:00 CDT, Height, 80.057, kg, 06/13/22 14:35:00 CDT, Weight benzonatate 2021-0 Yes 200 mg = 1 Memoria 200 mg oral 7-29 cap, PO, l capsule 16:27: TID, do [place]omas 00 not crush or chew, X 10 day, # 30 cap, 0 Refill(s), Pharmacy: [facility], 162.56, cm, 06/13/22 14:35:00 CDT, Height, 80.057, kg, 06/13/22 14:35:00 CDT, Weight bumetanide 2021-0 Yes 1 mg = 1 Mem oria 1 mg oral 7-29 tab, PO, l tablet 16:27: BID, # 60 Harish n 00 tab, 1 Refill(s), Pharmacy: [facility], 162.56, cm, 06/13/22 14:35:00 CDT, Height, 80.057, kg, 06/13/22 14:35:00 CDT, Weight dextrometho 2-0 Yes 10 mL, PO, Memoria rphan-guaiF 7-29 Q6H, PRN l ENesin 10 16:27: Cough, X Herm nupur mg-200 mg/5 00 14 day, # mL oral 120 mL, 0 liquid Refill(s), Pharmacy: [facility], 162.56, cm, 06/13/22 14:35:00 CDT, Height, 80.057, kg, 06/13/22 14:35:00 CDT, Weight benzonatate 2021-0 Yes 200 mg = 1 Memoria 200 mg oral 7-29 cap, PO, l capsule 16:27: TID, do [place] 00 not crush or chew, X 10 day, # 30 cap, 0 Refill(s), Pharmacy: [facility], 162.56, cm, 06/13/22 14:35:00 CDT, Height, 80.057, kg, 06/13/22 14:35:00 CDT, Weight bumetanide 2021-0 Yes 1 mg = 1 Mem oria 1 mg oral 7-29 tab, PO, l tablet 16:27: BID, # 60 Harish n 00 tab, 1 Refill(s), Pharmacy: [facility], 162.56, cm, 06/13/22 14:35:00 CDT, Height, 80.057, kg, 06/13/22 14:35:00 CDT, Weight dextrometho 2021-0 Yes 10 mL, PO, Memoria rphan-guaiF 7-29 Q6H, PRN l ENesin 10 16:27: Cough, X Herm nupur mg-200 mg/5 00 14 day, # mL oral 120 mL, 0 liquid Refill(s), Pharmacy: [facility], 162.56, cm, 06/13/22 14:35:00 CDT, Height, 80.057, kg, 06/13/22 14:35:00 CDT, Weight benzonatate 2021-0 Yes 200 mg = 1 Memoria 200 mg oral 7-29 cap, PO, l capsule 16:27: TID, do [place] 00 not crush or chew, X 10 day, # 30 cap, 0 Refill(s), Pharmacy: [facility], 162.56, cm, 06/13/22 14:35:00 CDT, Height, 80.057, kg, 06/13/22 14:35:00 CDT, Weight bumetanide 2021-0 Yes 1 mg = 1 Mem oria 1 mg oral 7-29 tab, PO, l tablet 16:27: BID, # 60 Harish n 00 tab, 1 Refill(s), Pharmacy: [facility], 162.56, cm, 06/13/22 14:35:00 CDT, Height, 80.057, kg, 06/13/22 14:35:00 CDT, Weight dextrometho 2021-0 Yes 10 mL, PO, Memoria rphan-guaiF 7-29 Q6H, PRN l ENesin 10 16:27: Cough, X Herm nupur mg-200 mg/5 00 14 day, # mL oral 120 mL, 0 liquid Refill(s), Pharmacy: [facility], 162.56, cm, 06/13/22 14:35:00 CDT, Height, 80.057, kg, 06/13/22 14:35:00 CDT, Weight benzonatate 2021-0 Yes 200 mg = 1 Memoria 200 mg oral 7-29 cap, PO, l capsule 16:27: TID, do [place] 00 not crush or chew, X 10 day, # 30 cap, 0 Refill(s), Pharmacy: [facility], 162.56, cm, 06/13/22 14:35:00 CDT, Height, 80.057, kg, 06/13/22 14:35:00 CDT, Weight bumetanide 2021-0 Yes 1 mg = 1 Mem oria 1 mg oral 7-29 tab, PO, l tablet 16:27: BID, # 60 Harish n 00 tab, 1 Refill(s), Pharmacy: [facility], 162.56, cm, 06/13/22 14:35:00 CDT, Height, 80.057, kg, 06/13/22 14:35:00 CDT, Weight dextrometho 2021-0 Yes 10 mL, PO, Memoria rphan-guaiF 7-29 Q6H, PRN l ENesin 10 16:27: Cough, X Herm nupur mg-200 mg/5 00 14 day, # mL oral 120 mL, 0 liquid Refill(s), Pharmacy: [facility], 162.56, cm, 06/13/22 14:35:00 CDT, Height, 80.057, kg, 06/13/22 14:35:00 CDT, Weight benzonatate 2021-0 Yes 200 mg = 1 Memoria 200 mg oral 7-29 cap, PO, l capsule 16:27: TID, do [place] 00 not crush or chew, X 10 day, # 30 cap, 0 Refill(s), Pharmacy: [facility], 162.56, cm, 06/13/22 14:35:00 CDT, Height, 80.057, kg, 06/13/22 14:35:00 CDT, Weight bumetanide 2021-0 Yes 1 mg = 1 Mem oria 1 mg oral 7-29 tab, PO, l tablet 16:27: BID, # 60 Harish n 00 tab, 1 Refill(s), Pharmacy: [facility], 162.56, cm, 06/13/22 14:35:00 CDT, Height, 80.057, kg, 06/13/22 14:35:00 CDT, Weight dextrometho 2021-0 Yes 10 mL, PO, Memoria rphan-guaiF 7-29 Q6H, PRN l ENesin 10 16:27: Cough, X Herm nupur mg-200 mg/5 00 14 day, # mL oral 120 mL, 0 liquid Refill(s), Pharmacy: [facility], 162.56, cm, 06/13/22 14:35:00 CDT, Height, 80.057, kg, 06/13/22 14:35:00 CDT, Weight benzonatate 2021-0 Yes 200 mg = 1 Memoria 200 mg oral 7-29 cap, PO, l capsule 16:27: TID, do [place] 00 not crush or chew, X 10 day, # 30 cap, 0 Refill(s), Pharmacy: [facility], 162.56, cm, 06/13/22 14:35:00 CDT, Height, 80.057, kg, 06/13/22 14:35:00 CDT, Weight bumetanide 2021-0 Yes 1 mg = 1 Mem oria 1 mg oral 7-29 tab, PO, l tablet 16:27: BID, # 60 Harish n 00 tab, 1 Refill(s), Pharmacy: [facility], 162.56, cm, 06/13/22 14:35:00 CDT, Height, 80.057, kg, 06/13/22 14:35:00 CDT, Weight dextrometho 2-0 Yes 10 mL, PO, Memoria rphan-guaiF 7-29 Q6H, PRN l ENesin 10 16:27: Cough, X Herm nupur mg-200 mg/5 00 14 day, # mL oral 120 mL, 0 liquid Refill(s), Pharmacy: [facility], 162.56, cm, 06/13/22 14:35:00 CDT, Height, 80.057, kg, 06/13/22 14:35:00 CDT, Weight benzonatate 2021-0 Yes 200 mg = 1 Memoria 200 mg oral 7-29 cap, PO, l capsule 16:27: TID, do [place] 00 not crush or chew, X 10 day, # 30 cap, 0 Refill(s), Pharmacy: [facility], 162.56, cm, 06/13/22 14:35:00 CDT, Height, 80.057, kg, 06/13/22 14:35:00 CDT, Weight bumetanide 2021-0 Yes 1 mg = 1 Mem oria 1 mg oral 7-29 tab, PO, l tablet 16:27: BID, # 60 Harish n 00 tab, 1 Refill(s), Pharmacy: [facility], 162.56, cm, 06/13/22 14:35:00 CDT, Height, 80.057, kg, 06/13/22 14:35:00 CDT, Weight dextrometho 2021-0 Yes 10 mL, PO, Memoria rphan-guaiF 7-29 Q6H, PRN l ENesin 10 16:27: Cough, X Herm nupur mg-200 mg/5 00 14 day, # mL oral 120 mL, 0 liquid Refill(s), Pharmacy: [facility], 162.56, cm, 06/13/22 14:35:00 CDT, Height, 80.057, kg, 06/13/22 14:35:00 CDT, Weight benzonatate 2021-0 Yes 200 mg = 1 Memoria 200 mg oral 7-29 cap, PO, l capsule 16:27: TID, do [place] 00 not crush or chew, X 10 day, # 30 cap, 0 Refill(s), Pharmacy: [facility], 162.56, cm, 06/13/22 14:35:00 CDT, Height, 80.057, kg, 06/13/22 14:35:00 CDT, Weight bumetanide 2021-0 Yes 1 mg = 1 Mem oria 1 mg oral 7-29 tab, PO, l tablet 16:27: BID, # 60 Harish n 00 tab, 1 Refill(s), Pharmacy: [facility], 162.56, cm, 06/13/22 14:35:00 CDT, Height, 80.057, kg, 06/13/22 14:35:00 CDT, Weight dextrometho 2021-0 Yes 10 mL, PO, Memoria rphan-guaiF 7-29 Q6H, PRN l ENesin 10 16:27: Cough, X Herm nupur mg-200 mg/5 00 14 day, # mL oral 120 mL, 0 liquid Refill(s), Pharmacy: [facility], 162.56, cm, 06/13/22 14:35:00 CDT, Height, 80.057, kg, 06/13/22 14:35:00 CDT, Weight benzonatate 2021-0 Yes 200 mg = 1 Memoria 200 mg oral 7-29 cap, PO, l capsule 16:27: TID, do [place] 00 not crush or chew, X 10 day, # 30 cap, 0 Refill(s), Pharmacy: [facility], 162.56, cm, 06/13/22 14:35:00 CDT, Height, 80.057, kg, 06/13/22 14:35:00 CDT, Weight bumetanide 2-0 Yes 1 mg = 1 Mem oria 1 mg oral 7-29 tab, PO, l tablet 16:27: BID, # 60 Harish n 00 tab, 1 Refill(s), Pharmacy: [facility], 162.56, cm, 06/13/22 14:35:00 CDT, Height, 80.057, kg, 06/13/22 14:35:00 CDT, Weight dextrometho 2021-0 Yes 10 mL, PO, Memoria rphan-guaiF 7-29 Q6H, PRN l ENesin 10 16:27: Cough, X Herm nupur mg-200 mg/5 00 14 day, # mL oral 120 mL, 0 liquid Refill(s), Pharmacy: [facility], 162.56, cm, 06/13/22 14:35:00 CDT, Height, 80.057, kg, 06/13/22 14:35:00 CDT, Weight benzonatate 2021-0 Yes 200 mg = 1 Memoria 200 mg oral 7-29 cap, PO, l capsule 16:27: TID, do [place] 00 not crush or chew, X 10 day, # 30 cap, 0 Refill(s), Pharmacy: [facility], 162.56, cm, 06/13/22 14:35:00 CDT, Height, 80.057, kg, 06/13/22 14:35:00 CDT, Weight bumetanide 0 Yes 1 mg = 1 Mem oria 1 mg oral 7-29 tab, PO, l tablet 16:27: BID, # 60 Harish n 00 tab, 1 Refill(s), Pharmacy: [facility], 162.56, cm, 06/13/22 14:35:00 CDT, Height, 80.057, kg, 06/13/22 14:35:00 CDT, Weight dextrometho 2021-0 Yes 10 mL, PO, Memoria rphan-guaiF 7-29 Q6H, PRN l ENesin 10 16:27: Cough, X Herm nupur mg-200 mg/5 00 14 day, # mL oral 120 mL, 0 liquid Refill(s), Pharmacy: [facility], 162.56, cm, 06/13/22 14:35:00 CDT, Height, 80.057, kg, 06/13/22 14:35:00 CDT, Weight benzonatate 2021-0 Yes 200 mg = 1 Memoria 200 mg oral 7-29 cap, PO, l capsule 16:27: TID, do [place] 00 not crush or chew, X 10 day, # 30 cap, 0 Refill(s), Pharmacy: [facility], 162.56, cm, 06/13/22 14:35:00 CDT, Height, 80.057, kg, 06/13/22 14:35:00 CDT, Weight bumetanide 2021-0 Yes 1 mg = 1 Mem oria 1 mg oral 7-29 tab, PO, l tablet 16:27: BID, # 60 Harish n 00 tab, 1 Refill(s), Pharmacy: [facility], 162.56, cm, 06/13/22 14:35:00 CDT, Height, 80.057, kg, 06/13/22 14:35:00 CDT, Weight dextrometho 2021-0 Yes 10 mL, PO, Memoria rphan-guaiF 7-29 Q6H, PRN l ENesin 10 16:27: Cough, X Herm nupur mg-200 mg/5 00 14 day, # mL oral 120 mL, 0 liquid Refill(s), Pharmacy: [facility], 162.56, cm, 06/13/22 14:35:00 CDT, Height, 80.057, kg, 06/13/22 14:35:00 CDT, Weight benzonatate 2021-0 Yes 200 mg = 1 Memoria 200 mg oral 7-29 cap, PO, l capsule 16:27: TID, do [place] 00 not crush or chew, X 10 day, # 30 cap, 0 Refill(s), Pharmacy: [facility], 162.56, cm, 06/13/22 14:35:00 CDT, Height, 80.057, kg, 06/13/22 14:35:00 CDT, Weight bumetanide 2021-0 Yes 1 mg = 1 Mem oria 1 mg oral 7-29 tab, PO, l tablet 16:27: BID, # 60 Harish n 00 tab, 1 Refill(s), Pharmacy: [facility], 162.56, cm, 06/13/22 14:35:00 CDT, Height, 80.057, kg, 06/13/22 14:35:00 CDT, Weight dextrometho 2-0 Yes 10 mL, PO, Memoria rphan-guaiF 7-29 Q6H, PRN l ENesin 10 16:27: Cough, X Herm nup[place] mg-200 mg/5 00 14 day, # mL oral 120 mL, 0 liquid Refill(s), Pharmacy: [facility], 162.56, cm, 06/13/22 14:35:00 CDT, Height, 80.057, kg, 06/13/22 14:35:00 CDT, Weight benzonatate 2021-0 Yes 200 mg = 1 Memoria 200 mg oral 7-29 cap, PO, l capsule 16:27: TID, do [place] 00 not crush or chew, X 10 day, # 30 cap, 0 Refill(s), Pharmacy: [facility], 162.56, cm, 06/13/22 14:35:00 CDT, Height, 80.057, kg, 06/13/22 14:35:00 CDT, Weight bumetanide 2021-0 Yes 1 mg = 1 Mem oria 1 mg oral 7-29 tab, PO, l tablet 16:27: BID, # 60 Harish n 00 tab, 1 Refill(s), Pharmacy: [facility], 162.56, cm, 06/13/22 14:35:00 CDT, Height, 80.057, kg, 06/13/22 14:35:00 CDT, Weight dextrometho 2021-0 Yes 10 mL, PO, Memoria rphan-guaiF 7-29 Q6H, PRN l ENesin 10 16:27: Cough, X Herm nupur mg-200 mg/5 00 14 day, # mL oral 120 mL, 0 liquid Refill(s), Pharmacy: [facility], 162.56, cm, 06/13/22 14:35:00 CDT, Height, 80.057, kg, 06/13/22 14:35:00 CDT, Weight benzonatate 2021-0 Yes 200 mg = 1 Memoria 200 mg oral 7-29 cap, PO, l capsule 16:27: TID, do [place] 00 not crush or chew, X 10 day, # 30 cap, 0 Refill(s), Pharmacy: [facility], 162.56, cm, 06/13/22 14:35:00 CDT, Height, 80.057, kg, 06/13/22 14:35:00 CDT, Weight bumetanide 2021-0 Yes 1 mg = 1 Mem oria 1 mg oral 7-29 tab, PO, l tablet 16:27: BID, # 60 Harish n 00 tab, 1 Refill(s), Pharmacy: [facility], 162.56, cm, 06/13/22 14:35:00 CDT, Height, 80.057, kg, 06/13/22 14:35:00 CDT, Weight dextrometho 2021-0 Yes 10 mL, PO, Memoria rphan-guaiF 7-29 Q6H, PRN l ENesin 10 16:27: Cough, X Herm nupur mg-200 mg/5 00 14 day, # mL oral 120 mL, 0 liquid Refill(s), Pharmacy: [facility], 162.56, cm, 06/13/22 14:35:00 CDT, Height, 80.057, kg, 06/13/22 14:35:00 CDT, Weight benzonatate 2021-0 Yes 200 mg = 1 Memoria 200 mg oral 7-29 cap, PO, l capsule 16:27: TID, do [place] 00 not crush or chew, X 10 day, # 30 cap, 0 Refill(s), Pharmacy: [facility], 162.56, cm, 06/13/22 14:35:00 CDT, Height, 80.057, kg, 06/13/22 14:35:00 CDT, Weight bumetanide 2021-0 Yes 1 mg = 1 Mem oria 1 mg oral 7-29 tab, PO, l tablet 16:27: BID, # 60 Harish n 00 tab, 1 Refill(s), Pharmacy: [facility], 162.56, cm, 06/13/22 14:35:00 CDT, Height, 80.057, kg, 06/13/22 14:35:00 CDT, Weight dextrometho 2021-0 Yes 10 mL, PO, Memoria rphan-guaiF 7-29 Q6H, PRN l ENesin 10 16:27: Cough, X Herm nup[place] mg-200 mg/5 00 14 day, # mL oral 120 mL, 0 liquid Refill(s), Pharmacy: [facility], 162.56, cm, 06/13/22 14:35:00 CDT, Height, 80.057, kg, 06/13/22 14:35:00 CDT, Weight benzonatate 2021-0 Yes 200 mg = 1 Memoria 200 mg oral 7-29 cap, PO, l capsule 16:27: TID, do [place] 00 not crush or chew, X 10 day, # 30 cap, 0 Refill(s), Pharmacy: [facility], 162.56, cm, 06/13/22 14:35:00 CDT, Height, 80.057, kg, 06/13/22 14:35:00 CDT, Weight bumetanide 2021-0 Yes 1 mg = 1 Mem oria 1 mg oral 7-29 tab, PO, l tablet 16:27: BID, # 60 Harish n 00 tab, 1 Refill(s), Pharmacy: [facility], 162.56, cm, 06/13/22 14:35:00 CDT, Height, 80.057, kg, 06/13/22 14:35:00 CDT, Weight dextrometho 2021-0 Yes 10 mL, PO, Memoria rphan-guaiF 7-29 Q6H, PRN l ENesin 10 16:27: Cough, X Herm nup[place] mg-200 mg/5 14 day, # mL oral 120 mL, 0 liquid Refill(s), Pharmacy: [facility], 162.56, cm, 06/13/22 14:35:00 CDT, Height, 80.057, kg, 06/13/22 14:35:00 CDT, Weight benzonatate 2021-0 Yes 200 mg = 1 Memoria 200 mg oral 7-29 cap, PO, l capsule 16:27: TID, do [place] 00 not crush or chew, X 10 day, # 30 cap, 0 Refill(s), Pharmacy: [facility], 162.56, cm, 06/13/22 14:35:00 CDT, Height, 80.057, kg, 06/13/22 14:35:00 CDT, Weight bumetanide 2021-0 Yes 1 mg = 1 Mem oria 1 mg oral 7-29 tab, PO, l tablet 16:27: BID, # 60 Harish n 00 tab, 1 Refill(s), Pharmacy: [facility], 162.56, cm, 06/13/22 14:35:00 CDT, Height, 80.057, kg, 06/13/22 14:35:00 CDT, Weight dextrometho 2021-0 Yes 10 mL, PO, Memoria rphan-guaiF 7-29 Q6H, PRN l ENesin 10 16:27: Cough, X Herm nupur mg-200 mg/5 00 14 day, # mL oral 120 mL, 0 liquid Refill(s), Pharmacy: [facility], 162.56, cm, 06/13/22 14:35:00 CDT, Height, 80.057, kg, 06/13/22 14:35:00 CDT, Weight benzonatate 2021-0 Yes 200 mg = 1 Memoria 200 mg oral 7-29 cap, PO, l capsule 16:27: TID, do [place] 00 not crush or chew, X 10 day, # 30 cap, 0 Refill(s), Pharmacy: [facility], 162.56, cm, 06/13/22 14:35:00 CDT, Height, 80.057, kg, 06/13/22 14:35:00 CDT, Weight bumetanide 2021-0 Yes 1 mg = 1 Mem oria 1 mg oral 7-29 tab, PO, l tablet 16:27: BID, # 60 Harish n 00 tab, 1 Refill(s), Pharmacy: [facility], 162.56, cm, 06/13/22 14:35:00 CDT, Height, 80.057, kg, 06/13/22 14:35:00 CDT, Weight dextrometho 2021-0 Yes 10 mL, PO, Memoria rphan-guaiF 7-29 Q6H, PRN l ENesin 10 16:27: Cough, X Herm nupur mg-200 mg/5 00 14 day, # mL oral 120 mL, 0 liquid Refill(s), Pharmacy: [facility], 162.56, cm, 06/13/22 14:35:00 CDT, Height, 80.057, kg, 06/13/22 14:35:00 CDT, Weight benzonatate 2021-0 Yes 200 mg = 1 Memoria 200 mg oral 7-29 cap, PO, l capsule 16:27: TID, do [place] 00 not crush or chew, X 10 day, # 30 cap, 0 Refill(s), Pharmacy: [facility], 162.56, cm, 06/13/22 14:35:00 CDT, Height, 80.057, kg, 06/13/22 14:35:00 CDT, Weight bumetanide 2021-0 Yes 1 mg = 1 Mem oria 1 mg oral 7-29 tab, PO, l tablet 16:27: BID, # 60 Harish n 00 tab, 1 Refill(s), Pharmacy: [facility], 162.56, cm, 06/13/22 14:35:00 CDT, Height, 80.057, kg, 06/13/22 14:35:00 CDT, Weight dextrometho 2021-0 Yes 10 mL, PO, Memoria rphan-guaiF 7-29 Q6H, PRN l ENesin 10 16:27: Cough, X Herm nupur mg-200 mg/5 00 14 day, # mL oral 120 mL, 0 liquid Refill(s), Pharmacy: [facility], 162.56, cm, 06/13/22 14:35:00 CDT, Height, 80.057, kg, 06/13/22 14:35:00 CDT, Weight benzonatate 2021-0 Yes 200 mg = 1 Memoria 200 mg oral 7-29 cap, PO, l capsule 16:27: TID, do [place] 00 not crush or chew, X 10 day, # 30 cap, 0 Refill(s), Pharmacy: [facility], 162.56, cm, 06/13/22 14:35:00 CDT, Height, 80.057, kg, 06/13/22 14:35:00 CDT, Weight bumetanide 2021-0 Yes 1 mg = 1 Mem oria 1 mg oral 7-29 tab, PO, l tablet 16:27: BID, # 60 [place] n 00 tab, 1 Refill(s), Pharmacy: [facility], 162.56, cm, 06/13/22 14:35:00 CDT, Height, 80.057, kg, 06/13/22 14:35:00 CDT, Weight dextrometho 2-0 Yes 10 mL, PO, Memoria rphan-guaiF 7-29 Q6H, PRN l ENesin 10 16:27: Cough, X [place] n[place] mg-200 mg/5 14 day, # mL oral 120 mL, 0 liquid Refill(s), Pharmacy: [facility], 162.56, cm, 06/13/22 14:35:00 CDT, Height, 80.057, kg, 06/13/22 14:35:00 CDT, Weight benzonatate 2021-0 Yes 200 mg = 1 Memoria 200 mg oral 7-29 cap, PO, l capsule 16:27: TID, do [place] 00 not crush or chew, X 10 day, # 30 cap, 0 Refill(s), Pharmacy: [facility], 162.56, cm, 06/13/22 14:35:00 CDT, Height, 80.057, kg, 06/13/22 14:35:00 CDT, Weight bumetanide 2021-0 Yes 1 mg = 1 Mem oria 1 mg oral 7-29 tab, PO, l tablet 16:27: BID, # 60 Harish n 00 tab, 1 Refill(s), Pharmacy: [facility], 162.56, cm, 06/13/22 14:35:00 CDT, Height, 80.057, kg, 06/13/22 14:35:00 CDT, Weight dextrometho 2-0 Yes 10 mL, PO, Memoria rphan-guaiF 7-29 Q6H, PRN l ENesin 10 16:27: Cough, X Herm nupur mg-200 mg/5 00 14 day, # mL oral 120 mL, 0 liquid Refill(s), Pharmacy: [facility], 162.56, cm, 06/13/22 14:35:00 CDT, Height, 80.057, kg, 06/13/22 14:35:00 CDT, Weight benzonatate 2021-0 Yes 200 mg = 1 Memoria 200 mg oral 7-29 cap, PO, l capsule 16:27: TID, do [place] 00 not crush or chew, X 10 day, # 30 cap, 0 Refill(s), Pharmacy: [facility], 162.56, cm, 06/13/22 14:35:00 CDT, Height, 80.057, kg, 06/13/22 14:35:00 CDT, Weight bumetanide 2021-0 Yes 1 mg = 1 Mem oria 1 mg oral 7-29 tab, PO, l tablet 16:27: BID, # 60 Harish n 00 tab, 1 Refill(s), Pharmacy: [facility], 162.56, cm, 06/13/22 14:35:00 CDT, Height, 80.057, kg, 06/13/22 14:35:00 CDT, Weight dextrometho 2021-0 Yes 10 mL, PO, Memoria rphan-guaiF 7-29 Q6H, PRN l ENesin 10 16:27: Cough, X Herm nupur mg-200 mg/5 00 14 day, # mL oral 120 mL, 0 liquid Refill(s), Pharmacy: [facility], 162.56, cm, 06/13/22 14:35:00 CDT, Height, 80.057, kg, 06/13/22 14:35:00 CDT, Weight benzonatate 2021-0 Yes 200 mg = 1 Memoria 200 mg oral 7-29 cap, PO, l capsule 16:27: TID, do [place] 00 not crush or chew, X 10 day, # 30 cap, 0 Refill(s), Pharmacy: [facility], 162.56, cm, 06/13/22 14:35:00 CDT, Height, 80.057, kg, 06/13/22 14:35:00 CDT, Weight bumetanide 2021-0 Yes 1 mg = 1 Mem oria 1 mg oral 7-29 tab, PO, l tablet 16:27: BID, # 60 Harish n 00 tab, 1 Refill(s), Pharmacy: [facility], 162.56, cm, 06/13/22 14:35:00 CDT, Height, 80.057, kg, 06/13/22 14:35:00 CDT, Weight dextrometho 2021-0 Yes 10 mL, PO, Memoria rphan-guaiF 7-29 Q6H, PRN l ENesin 10 16:27: Cough, X Herm nupur mg-200 mg/5 00 14 day, # mL oral 120 mL, 0 liquid Refill(s), Pharmacy: [facility], 162.56, cm, 06/13/22 14:35:00 CDT, Height, 80.057, kg, 06/13/22 14:35:00 CDT, Weight benzonatate 2021-0 Yes 200 mg = 1 Memoria 200 mg oral 7-29 cap, PO, l capsule 16:27: TID, do [place] 00 not crush or chew, X 10 day, # 30 cap, 0 Refill(s), Pharmacy: [facility], 162.56, cm, 06/13/22 14:35:00 CDT, Height, 80.057, kg, 06/13/22 14:35:00 CDT, Weight bumetanide 2021-0 Yes 1 mg = 1 Mem oria 1 mg oral 7-29 tab, PO, l tablet 16:27: BID, # 60 Harish n 00 tab, 1 Refill(s), Pharmacy: [facility], 162.56, cm, 06/13/22 14:35:00 CDT, Height, 80.057, kg, 06/13/22 14:35:00 CDT, Weight dextrometho 2021-0 Yes 10 mL, PO, Memoria rphan-guaiF 7-29 Q6H, PRN l ENesin 10 16:27: Cough, X Herm nupur mg-200 mg/5 00 14 day, # mL oral 120 mL, 0 liquid Refill(s), Pharmacy: [facility], 162.56, cm, 06/13/22 14:35:00 CDT, Height, 80.057, kg, 06/13/22 14:35:00 CDT, Weight benzonatate 2021-0 Yes 200 mg = 1 Memoria 200 mg oral 7-29 cap, PO, l capsule 16:27: TID, do [place] 00 not crush or chew, X 10 day, # 30 cap, 0 Refill(s), Pharmacy: [facility], 162.56, cm, 06/13/22 14:35:00 CDT, Height, 80.057, kg, 06/13/22 14:35:00 CDT, Weight bumetanide 2021-0 Yes 1 mg = 1 Mem oria 1 mg oral 7-29 tab, PO, l tablet 16:27: BID, # 60 Harish n 00 tab, 1 Refill(s), Pharmacy: [facility], 162.56, cm, 06/13/22 14:35:00 CDT, Height, 80.057, kg, 06/13/22 14:35:00 CDT, Weight dextrometho 2021-0 Yes 10 mL, PO, Memoria rphan-guaiF 7-29 Q6H, PRN l ENesin 10 16:27: Cough, X Herm nupur mg-200 mg/5 00 14 day, # mL oral 120 mL, 0 liquid Refill(s), Pharmacy: [facility], 162.56, cm, 06/13/22 14:35:00 CDT, Height, 80.057, kg, 06/13/22 14:35:00 CDT, Weight benzonatate 2021-0 Yes 200 mg = 1 Memoria 200 mg oral 7-29 cap, PO, l capsule 16:27: TID, do [place] 00 not crush or chew, X 10 day, # 30 cap, 0 Refill(s), Pharmacy: [facility], 162.56, cm, 06/13/22 14:35:00 CDT, Height, 80.057, kg, 06/13/22 14:35:00 CDT, Weight bumetanide 2021-0 Yes 1 mg = 1 Mem oria 1 mg oral 7-29 tab, PO, l tablet 16:27: BID, # 60 Harish n 00 tab, 1 Refill(s), Pharmacy: [facility], 162.56, cm, 06/13/22 14:35:00 CDT, Height, 80.057, kg, 06/13/22 14:35:00 CDT, Weight dextrometho 2-0 Yes 10 mL, PO, Memoria rphan-guaiF 7-29 Q6H, PRN l ENesin 10 16:27: Cough, X Herm nupur mg-200 mg/5 00 14 day, # mL oral 120 mL, 0 liquid Refill(s), Pharmacy: [facility], 162.56, cm, 06/13/22 14:35:00 CDT, Height, 80.057, kg, 06/13/22 14:35:00 CDT, Weight benzonatate 2021-0 Yes 200 mg = 1 Memoria 200 mg oral 7-29 cap, PO, l capsule 16:27: TID, do [place] 00 not crush or chew, X 10 day, # 30 cap, 0 Refill(s), Pharmacy: [facility], 162.56, cm, 06/13/22 14:35:00 CDT, Height, 80.057, kg, 06/13/22 14:35:00 CDT, Weight bumetanide 2021-0 Yes 1 mg = 1 Mem oria 1 mg oral 7-29 tab, PO, l tablet 16:27: BID, # 60 Harish n 00 tab, 1 Refill(s), Pharmacy: [facility], 162.56, cm, 06/13/22 14:35:00 CDT, Height, 80.057, kg, 06/13/22 14:35:00 CDT, Weight dextrometho 2021-0 Yes 10 mL, PO, Memoria rphan-guaiF 7-29 Q6H, PRN l ENesin 10 16:27: Cough, X Herm nupur mg-200 mg/5 00 14 day, # mL oral 120 mL, 0 liquid Refill(s), Pharmacy: [facility], 162.56, cm, 06/13/22 14:35:00 CDT, Height, 80.057, kg, 06/13/22 14:35:00 CDT, Weight benzonatate 2021-0 Yes 200 mg = 1 Memoria 200 mg oral 7-29 cap, PO, l capsule 16:27: TID, do [place] 00 not crush or chew, X 10 day, # 30 cap, 0 Refill(s), Pharmacy: [facility], 162.56, cm, 06/13/22 14:35:00 CDT, Height, 80.057, kg, 06/13/22 14:35:00 CDT, Weight bumetanide 2021-0 Yes 1 mg = 1 Mem oria 1 mg oral 7-29 tab, PO, l tablet 16:27: BID, # 60 Harish n 00 tab, 1 Refill(s), Pharmacy: [facility], 162.56, cm, 06/13/22 14:35:00 CDT, Height, 80.057, kg, 06/13/22 14:35:00 CDT, Weight dextrometho 2021-0 Yes 10 mL, PO, Memoria rphan-guaiF 7-29 Q6H, PRN l ENesin 10 16:27: Cough, X Herm nupur mg-200 mg/5 00 14 day, # mL oral 120 mL, 0 liquid Refill(s), Pharmacy: [facility], 162.56, cm, 06/13/22 14:35:00 CDT, Height, 80.057, kg, 06/13/22 14:35:00 CDT, Weight benzonatate 2021-0 Yes 200 mg = 1 Memoria 200 mg oral 7-29 cap, PO, l capsule 16:27: TID, do [place] 00 not crush or chew, X 10 day, # 30 cap, 0 Refill(s), Pharmacy: [facility], 162.56, cm, 06/13/22 14:35:00 CDT, Height, 80.057, kg, 06/13/22 14:35:00 CDT, Weight bumetanide 2-0 Yes 1 mg = 1 Mem oria 1 mg oral 7-29 tab, PO, l tablet 16:27: BID, # 60 Harish n 00 tab, 1 Refill(s), Pharmacy: [facility], 162.56, cm, 06/13/22 14:35:00 CDT, Height, 80.057, kg, 06/13/22 14:35:00 CDT, Weight dextrometho 2021-0 Yes 10 mL, PO, Memoria rphan-guaiF 7-29 Q6H, PRN l ENesin 10 16:27: Cough, X Herm nupur mg-200 mg/5 00 14 day, # mL oral 120 mL, 0 liquid Refill(s), Pharmacy: [facility], 162.56, cm, 06/13/22 14:35:00 CDT, Height, 80.057, kg, 06/13/22 14:35:00 CDT, Weight benzonatate 2021-0 Yes 200 mg = 1 Memoria 200 mg oral 7-29 cap, PO, l capsule 16:27: TID, do [place] 00 not crush or chew, X 10 day, # 30 cap, 0 Refill(s), Pharmacy: [facility], 162.56, cm, 06/13/22 14:35:00 CDT, Height, 80.057, kg, 06/13/22 14:35:00 CDT, Weight bumetanide 0 Yes 1 mg = 1 Mem oria 1 mg oral 7-29 tab, PO, l tablet 16:27: BID, # 60 Harish n 00 tab, 1 Refill(s), Pharmacy: [facility], 162.56, cm, 06/13/22 14:35:00 CDT, Height, 80.057, kg, 06/13/22 14:35:00 CDT, Weight dextrometho 2021-0 Yes 10 mL, PO, Memoria rphan-guaiF 7-29 Q6H, PRN l ENesin 10 16:27: Cough, X Herm nupur mg-200 mg/5 00 14 day, # mL oral 120 mL, 0 liquid Refill(s), Pharmacy: [facility], 162.56, cm, 06/13/22 14:35:00 CDT, Height, 80.057, kg, 06/13/22 14:35:00 CDT, Weight benzonatate 2021-0 Yes 200 mg = 1 Memoria 200 mg oral 7-29 cap, PO, l capsule 16:27: TID, do [place] 00 not crush or chew, X 10 day, # 30 cap, 0 Refill(s), Pharmacy: [facility], 162.56, cm, 06/13/22 14:35:00 CDT, Height, 80.057, kg, 06/13/22 14:35:00 CDT, Weight bumetanide 2021-0 Yes 1 mg = 1 Mem oria 1 mg oral 7-29 tab, PO, l tablet 16:27: BID, # 60 Harish n 00 tab, 1 Refill(s), Pharmacy: [facility], 162.56, cm, 06/13/22 14:35:00 CDT, Height, 80.057, kg, 06/13/22 14:35:00 CDT, Weight dextrometho 2021-0 Yes 10 mL, PO, Memoria rphan-guaiF 7-29 Q6H, PRN l ENesin 10 16:27: Cough, X Herm nupur mg-200 mg/5 00 14 day, # mL oral 120 mL, 0 liquid Refill(s), Pharmacy: [facility], 162.56, cm, 06/13/22 14:35:00 CDT, Height, 80.057, kg, 06/13/22 14:35:00 CDT, Weight benzonatate 2021-0 Yes 200 mg = 1 Memoria 200 mg oral 7-29 cap, PO, l capsule 16:27: TID, do [place] 00 not crush or chew, X 10 day, # 30 cap, 0 Refill(s), Pharmacy: [facility], 162.56, cm, 06/13/22 14:35:00 CDT, Height, 80.057, kg, 06/13/22 14:35:00 CDT, Weight bumetanide 2021-0 Yes 1 mg = 1 Mem oria 1 mg oral 7-29 tab, PO, l tablet 16:27: BID, # 60 Harish n 00 tab, 1 Refill(s), Pharmacy: [facility], 162.56, cm, 06/13/22 14:35:00 CDT, Height, 80.057, kg, 06/13/22 14:35:00 CDT, Weight dextrometho 2-0 Yes 10 mL, PO, Memoria rphan-guaiF 7-29 Q6H, PRN l ENesin 10 16:27: Cough, X Herm nupur mg-200 mg/5 00 14 day, # mL oral 120 mL, 0 liquid Refill(s), Pharmacy: [facility], 162.56, cm, 06/13/22 14:35:00 CDT, Height, 80.057, kg, 06/13/22 14:35:00 CDT, Weight benzonatate 2021-0 Yes 200 mg = 1 Memoria 200 mg oral 7-29 cap, PO, l capsule 16:27: TID, do [place] 00 not crush or chew, X 10 day, # 30 cap, 0 Refill(s), Pharmacy: [facility], 162.56, cm, 06/13/22 14:35:00 CDT, Height, 80.057, kg, 06/13/22 14:35:00 CDT, Weight bumetanide 2021-0 Yes 1 mg = 1 Mem oria 1 mg oral 7-29 tab, PO, l tablet 16:27: BID, # 60 Harish n 00 tab, 1 Refill(s), Pharmacy: [facility], 162.56, cm, 06/13/22 14:35:00 CDT, Height, 80.057, kg, 06/13/22 14:35:00 CDT, Weight dextrometho 2021-0 Yes 10 mL, PO, Memoria rphan-guaiF 7-29 Q6H, PRN l ENesin 10 16:27: Cough, X Herm nupur mg-200 mg/5 00 14 day, # mL oral 120 mL, 0 liquid Refill(s), Pharmacy: [facility], 162.56, cm, 06/13/22 14:35:00 CDT, Height, 80.057, kg, 06/13/22 14:35:00 CDT, Weight benzonatate 2021-0 Yes 200 mg = 1 Memoria 200 mg oral 7-29 cap, PO, l capsule 16:27: TID, do [place] 00 not crush or chew, X 10 day, # 30 cap, 0 Refill(s), Pharmacy: [facility], 162.56, cm, 06/13/22 14:35:00 CDT, Height, 80.057, kg, 06/13/22 14:35:00 CDT, Weight bumetanide 2021-0 Yes 1 mg = 1 Mem oria 1 mg oral 7-29 tab, PO, l tablet 16:27: BID, # 60 Harish n 00 tab, 1 Refill(s), Pharmacy: [facility], 162.56, cm, 06/13/22 14:35:00 CDT, Height, 80.057, kg, 06/13/22 14:35:00 CDT, Weight dextrometho 2021-0 Yes 10 mL, PO, Memoria rphan-guaiF 7-29 Q6H, PRN l ENesin 10 16:27: Cough, X Herm nupur mg-200 mg/5 00 14 day, # mL oral 120 mL, 0 liquid Refill(s), Pharmacy: [facility], 162.56, cm, 06/13/22 14:35:00 CDT, Height, 80.057, kg, 06/13/22 14:35:00 CDT, Weight benzonatate 2021-0 Yes 200 mg = 1 Memoria 200 mg oral 7-29 cap, PO, l capsule 16:27: TID, do [place]omas 00 not crush or chew, X 10 day, # 30 cap, 0 Refill(s), Pharmacy: [facility], 162.56, cm, 06/13/22 14:35:00 CDT, Height, 80.057, kg, 06/13/22 14:35:00 CDT, Weight bumetanide 2021-0 Yes 1 mg = 1 Mem oria 1 mg oral 7-29 tab, PO, l tablet 16:27: BID, # 60 Harish n 00 tab, 1 Refill(s), Pharmacy: [facility], 162.56, cm, 06/13/22 14:35:00 CDT, Height, 80.057, kg, 06/13/22 14:35:00 CDT, Weight dextrometho 2021-0 Yes 10 mL, PO, Memoria rphan-guaiF 7-29 Q6H, PRN l ENesin 10 16:27: Cough, X Herm nupur mg-200 mg/5 00 14 day, # mL oral 120 mL, 0 liquid Refill(s), Pharmacy: [facility], 162.56, cm, 06/13/22 14:35:00 CDT, Height, 80.057, kg, 06/13/22 14:35:00 CDT, Weight benzonatate 2021-0 Yes 200 mg = 1 Memoria 200 mg oral 7-29 cap, PO, l capsule 16:27: TID, do Tomas 00 not crush or chew, X 10 day, # 30 cap, 0 Refill(s), Pharmacy: [facility], 162.56, cm, 06/13/22 14:35:00 CDT, Height, 80.057, kg, 06/13/22 14:35:00 CDT, Weight bumetanide 2021-0 Yes 1 mg = 1 Mem oria 1 mg oral 7-29 tab, PO, l tablet 16:27: BID, # 60 Harish n 00 tab, 1 Refill(s), Pharmacy: [facility], 162.56, cm, 06/13/22 14:35:00 CDT, Height, 80.057, kg, 06/13/22 14:35:00 CDT, Weight dextrometho 2021-0 Yes 10 mL, PO, Memoria rphan-guaiF 7-29 Q6H, PRN l ENesin 10 16:27: Cough, X Herm nupur mg-200 mg/5 14 day, # mL oral 120 mL, 0 liquid Refill(s), Pharmacy: [facility], 162.56, cm, 06/13/22 14:35:00 CDT, Height, 80.057, kg, 06/13/22 14:35:00 CDT, Weight benzonatate 2021-0 Yes 200 mg = 1 Memoria 200 mg oral 7-29 cap, PO, l capsule 16:27: TID, do Tomas 00 not crush or chew, X 10 day, # 30 cap, 0 Refill(s), Pharmacy: [facility], 162.56, cm, 06/13/22 14:35:00 CDT, Height, 80.057, kg, 06/13/22 14:35:00 CDT, Weight bumetanide 2021-0 Yes 1 mg = 1 Mem oria 1 mg oral 7-29 tab, PO, l tablet 16:27: BID, # 60 Harish n 00 tab, 1 Refill(s), Pharmacy: [facility], 162.56, cm, 06/13/22 14:35:00 CDT, Height, 80.057, kg, 06/13/22 14:35:00 CDT, Weight dextrometho 2021-0 Yes 10 mL, PO, Memoria rphan-guaiF 7-29 Q6H, PRN l ENesin 10 16:27: Cough, X Herm nupur mg-200 mg/5 00 14 day, # mL oral 120 mL, 0 liquid Refill(s), Pharmacy: [facility], 162.56, cm, 06/13/22 14:35:00 CDT, Height, 80.057, kg, 06/13/22 14:35:00 CDT, Weight benzonatate 2021-0 Yes 200 mg = 1 Memoria 200 mg oral 7-29 cap, PO, l capsule 16:27: TID, do [place] 00 not crush or chew, X 10 day, # 30 cap, 0 Refill(s), Pharmacy: [facility], 162.56, cm, 06/13/22 14:35:00 CDT, Height, 80.057, kg, 06/13/22 14:35:00 CDT, Weight bumetanide 2021-0 Yes 1 mg = 1 Mem oria 1 mg oral 7-29 tab, PO, l tablet 16:27: BID, # 60 Harish n 00 tab, 1 Refill(s), Pharmacy: [facility], 162.56, cm, 06/13/22 14:35:00 CDT, Height, 80.057, kg, 06/13/22 14:35:00 CDT, Weight dextrometho 2021-0 Yes 10 mL, PO, Memoria rphan-guaiF 7-29 Q6H, PRN l ENesin 10 16:27: Cough, X Herm nupur mg-200 mg/5 00 14 day, # mL oral 120 mL, 0 liquid Refill(s), Pharmacy: [facility], 162.56, cm, 06/13/22 14:35:00 CDT, Height, 80.057, kg, 06/13/22 14:35:00 CDT, Weight benzonatate 2021-0 Yes 200 mg = 1 Memoria 200 mg oral 7-29 cap, PO, l capsule 16:27: TID, do Tomas 00 not crush or chew, X 10 day, # 30 cap, 0 Refill(s), Pharmacy: [facility], 162.56, cm, 06/13/22 14:35:00 CDT, Height, 80.057, kg, 06/13/22 14:35:00 CDT, Weight bumetanide 2021-0 Yes 1 mg = 1 Mem oria 1 mg oral 7-29 tab, PO, l tablet 16:27: BID, # 60 Harish n 00 tab, 1 Refill(s), Pharmacy: [facility], 162.56, cm, 06/13/22 14:35:00 CDT, Height, 80.057, kg, 06/13/22 14:35:00 CDT, Weight dextrometho 2021-0 Yes 10 mL, PO, Memoria rphan-guaiF 7-29 Q6H, PRN l ENesin 10 16:27: Cough, X Herm nupur mg-200 mg/5 00 14 day, # mL oral 120 mL, 0 liquid Refill(s), Pharmacy: [facility], 162.56, cm, 06/13/22 14:35:00 CDT, Height, 80.057, kg, 06/13/22 14:35:00 CDT, Weight benzonatate 2021-0 Yes 200 mg = 1 Memoria 200 mg oral 7-29 cap, PO, l capsule 16:27: TID, do [place] 00 not crush or chew, X 10 day, # 30 cap, 0 Refill(s), Pharmacy: [facility], 162.56, cm, 06/13/22 14:35:00 CDT, Height, 80.057, kg, 06/13/22 14:35:00 CDT, Weight bumetanide 2021-0 Yes 1 mg = 1 Mem oria 1 mg oral 7-29 tab, PO, l tablet 16:27: BID, # 60 Harish n 00 tab, 1 Refill(s), Pharmacy: [facility], 162.56, cm, 06/13/22 14:35:00 CDT, Height, 80.057, kg, 06/13/22 14:35:00 CDT, Weight dextrometho 2-0 Yes 10 mL, PO, Memoria rphan-guaiF 7-29 Q6H, PRN l ENesin 10 16:27: Cough, X Herm nupur mg-200 mg/5 14 day, # mL oral 120 mL, 0 liquid Refill(s), Pharmacy: [facility], 162.56, cm, 06/13/22 14:35:00 CDT, Height, 80.057, kg, 06/13/22 14:35:00 CDT, Weight benzonatate 2021-0 Yes 200 mg = 1 Memoria 200 mg oral 7-29 cap, PO, l capsule 16:27: TID, do Tomas 00 not crush or chew, X 10 day, # 30 cap, 0 Refill(s), Pharmacy: [facility], 162.56, cm, 06/13/22 14:35:00 CDT, Height, 80.057, kg, 06/13/22 14:35:00 CDT, Weight bumetanide 2021-0 Yes 1 mg = 1 Mem oria 1 mg oral 7-29 tab, PO, l tablet 16:27: BID, # 60 Harish n 00 tab, 1 Refill(s), Pharmacy: [facility], 162.56, cm, 06/13/22 14:35:00 CDT, Height, 80.057, kg, 06/13/22 14:35:00 CDT, Weight dextrometho 2-0 Yes 10 mL, PO, Memoria rphan-guaiF 7-29 Q6H, PRN l ENesin 10 16:27: Cough, X Herm nupur mg-200 mg/5 00 14 day, # mL oral 120 mL, 0 liquid Refill(s), Pharmacy: [facility], 162.56, cm, 06/13/22 14:35:00 CDT, Height, 80.057, kg, 06/13/22 14:35:00 CDT, Weight benzonatate 2021-0 Yes 200 mg = 1 Memoria 200 mg oral 7-29 cap, PO, l capsule 16:27: TID, do Tomas 00 not crush or chew, X 10 day, # 30 cap, 0 Refill(s), Pharmacy: [facility], 162.56, cm, 06/13/22 14:35:00 CDT, Height, 80.057, kg, 06/13/22 14:35:00 CDT, Weight bumetanide 2021-0 Yes 1 mg = 1 Mem oria 1 mg oral 7-29 tab, PO, l tablet 16:27: BID, # 60 Harish n 00 tab, 1 Refill(s), Pharmacy: [facility], 162.56, cm, 06/13/22 14:35:00 CDT, Height, 80.057, kg, 06/13/22 14:35:00 CDT, Weight dextrometho 2021-0 Yes 10 mL, PO, Memoria rphan-guaiF 7-29 Q6H, PRN l ENesin 10 16:27: Cough, X Herm nupur mg-200 mg/5 00 14 day, # mL oral 120 mL, 0 liquid Refill(s), Pharmacy: [facility], 162.56, cm, 06/13/22 14:35:00 CDT, Height, 80.057, kg, 06/13/22 14:35:00 CDT, Weight benzonatate 2021-0 Yes 200 mg = 1 Memoria 200 mg oral 7-29 cap, PO, l capsule 16:27: TID, do [place] 00 not crush or chew, X 10 day, # 30 cap, 0 Refill(s), Pharmacy: [facility], 162.56, cm, 06/13/22 14:35:00 CDT, Height, 80.057, kg, 06/13/22 14:35:00 CDT, Weight bumetanide 2021-0 Yes 1 mg = 1 Mem oria 1 mg oral 7-29 tab, PO, l tablet 16:27: BID, # 60 Harish n 00 tab, 1 Refill(s), Pharmacy: [facility], 162.56, cm, 06/13/22 14:35:00 CDT, Height, 80.057, kg, 06/13/22 14:35:00 CDT, Weight dextrometho 2021-0 Yes 10 mL, PO, Memoria rphan-guaiF 7-29 Q6H, PRN l ENesin 10 16:27: Cough, X Herm nupur mg-200 mg/5 00 14 day, # mL oral 120 mL, 0 liquid Refill(s), Pharmacy: [facility], 162.56, cm, 06/13/22 14:35:00 CDT, Height, 80.057, kg, 06/13/22 14:35:00 CDT, Weight benzonatate 2021-0 Yes 200 mg = 1 Memoria 200 mg oral 7-29 cap, PO, l capsule 16:27: TID, do [place] 00 not crush or chew, X 10 day, # 30 cap, 0 Refill(s), Pharmacy: [facility], 162.56, cm, 06/13/22 14:35:00 CDT, Height, 80.057, kg, 06/13/22 14:35:00 CDT, Weight bumetanide 2021-0 Yes 1 mg = 1 Mem oria 1 mg oral 7-29 tab, PO, l tablet 16:27: BID, # 60 Harish n 00 tab, 1 Refill(s), Pharmacy: [facility], 162.56, cm, 06/13/22 14:35:00 CDT, Height, 80.057, kg, 06/13/22 14:35:00 CDT, Weight dextrometho 2021-0 Yes 10 mL, PO, Memoria rphan-guaiF 7-29 Q6H, PRN l ENesin 10 16:27: Cough, X Herm nupur mg-200 mg/5 00 14 day, # mL oral 120 mL, 0 liquid Refill(s), Pharmacy: [facility], 162.56, cm, 06/13/22 14:35:00 CDT, Height, 80.057, kg, 06/13/22 14:35:00 CDT, Weight benzonatate 2021-0 Yes 200 mg = 1 Memoria 200 mg oral 7-29 cap, PO, l capsule 16:27: TID, do Tomas 00 not crush or chew, X 10 day, # 30 cap, 0 Refill(s), Pharmacy: [facility], 162.56, cm, 06/13/22 14:35:00 CDT, Height, 80.057, kg, 06/13/22 14:35:00 CDT, Weight bumetanide 2021-0 Yes 1 mg = 1 Mem oria 1 mg oral 7-29 tab, PO, l tablet 16:27: BID, # 60 Harish n 00 tab, 1 Refill(s), Pharmacy: [facility], 162.56, cm, 06/13/22 14:35:00 CDT, Height, 80.057, kg, 06/13/22 14:35:00 CDT, Weight dextrometho 2021-0 Yes 10 mL, PO, Memoria rphan-guaiF 7-29 Q6H, PRN l ENesin 10 16:27: Cough, X Herm nupur mg-200 mg/5 00 14 day, # mL oral 120 mL, 0 liquid Refill(s), Pharmacy: [facility], 162.56, cm, 06/13/22 14:35:00 CDT, Height, 80.057, kg, 06/13/22 14:35:00 CDT, Weight benzonatate 2021-0 Yes 200 mg = 1 Memoria 200 mg oral 7-29 cap, PO, l capsule 16:27: TID, do [place] 00 not crush or chew, X 10 day, # 30 cap, 0 Refill(s), Pharmacy: [facility], 162.56, cm, 06/13/22 14:35:00 CDT, Height, 80.057, kg, 06/13/22 14:35:00 CDT, Weight bumetanide 2021-0 Yes 1 mg = 1 Mem oria 1 mg oral 7-29 tab, PO, l tablet 16:27: BID, # 60 Harish n 00 tab, 1 Refill(s), Pharmacy: [facility], 162.56, cm, 06/13/22 14:35:00 CDT, Height, 80.057, kg, 06/13/22 14:35:00 CDT, Weight dextrometho 2-0 Yes 10 mL, PO, Memoria rphan-guaiF 7-29 Q6H, PRN l ENesin 10 16:27: Cough, X Herm nupur mg-200 mg/5 00 14 day, # mL oral 120 mL, 0 liquid Refill(s), Pharmacy: [facility], 162.56, cm, 06/13/22 14:35:00 CDT, Height, 80.057, kg, 06/13/22 14:35:00 CDT, Weight benzonatate 2021-0 Yes 200 mg = 1 Memoria 200 mg oral 7-29 cap, PO, l capsule 16:27: TID, do [place] 00 not crush or chew, X 10 day, # 30 cap, 0 Refill(s), Pharmacy: [facility], 162.56, cm, 06/13/22 14:35:00 CDT, Height, 80.057, kg, 06/13/22 14:35:00 CDT, Weight bumetanide 2021-0 Yes 1 mg = 1 Mem oria 1 mg oral 7-29 tab, PO, l tablet 16:27: BID, # 60 Harish n 00 tab, 1 Refill(s), Pharmacy: [facility], 162.56, cm, 06/13/22 14:35:00 CDT, Height, 80.057, kg, 06/13/22 14:35:00 CDT, Weight dextrometho 2021-0 Yes 10 mL, PO, Memoria rphan-guaiF 7-29 Q6H, PRN l ENesin 10 16:27: Cough, X Herm nupur mg-200 mg/5 00 14 day, # mL oral 120 mL, 0 liquid Refill(s), Pharmacy: [facility], 162.56, cm, 06/13/22 14:35:00 CDT, Height, 80.057, kg, 06/13/22 14:35:00 CDT, Weight benzonatate 2021-0 Yes 200 mg = 1 Memoria 200 mg oral 7-29 cap, PO, l capsule 16:27: TID, do [place] 00 not crush or chew, X 10 day, # 30 cap, 0 Refill(s), Pharmacy: [facility], 162.56, cm, 06/13/22 14:35:00 CDT, Height, 80.057, kg, 06/13/22 14:35:00 CDT, Weight bumetanide 2021-0 Yes 1 mg = 1 Mem oria 1 mg oral 7-29 tab, PO, l tablet 16:27: BID, # 60 Harish n 00 tab, 1 Refill(s), Pharmacy: [facility], 162.56, cm, 06/13/22 14:35:00 CDT, Height, 80.057, kg, 06/13/22 14:35:00 CDT, Weight dextrometho 2021-0 Yes 10 mL, PO, Memoria rphan-guaiF 7-29 Q6H, PRN l ENesin 10 16:27: Cough, X Herm nupur mg-200 mg/5 00 14 day, # mL oral 120 mL, 0 liquid Refill(s), Pharmacy: [facility], 162.56, cm, 06/13/22 14:35:00 CDT, Height, 80.057, kg, 06/13/22 14:35:00 CDT, Weight benzonatate 2021-0 Yes 200 mg = 1 Memoria 200 mg oral 7-29 cap, PO, l capsule 16:27: TID, do [place] 00 not crush or chew, X 10 day, # 30 cap, 0 Refill(s), Pharmacy: [facility], 162.56, cm, 06/13/22 14:35:00 CDT, Height, 80.057, kg, 06/13/22 14:35:00 CDT, Weight bumetanide 2-0 Yes 1 mg = 1 Mem oria 1 mg oral 7-29 tab, PO, l tablet 16:27: BID, # 60 Harish n 00 tab, 1 Refill(s), Pharmacy: [facility], 162.56, cm, 06/13/22 14:35:00 CDT, Height, 80.057, kg, 06/13/22 14:35:00 CDT, Weight dextrometho 2021-0 Yes 10 mL, PO, Memoria rphan-guaiF 7-29 Q6H, PRN l ENesin 10 16:27: Cough, X Herm nupur mg-200 mg/5 00 14 day, # mL oral 120 mL, 0 liquid Refill(s), Pharmacy: [facility], 162.56, cm, 06/13/22 14:35:00 CDT, Height, 80.057, kg, 06/13/22 14:35:00 CDT, Weight benzonatate 2021-0 Yes 200 mg = 1 Memoria 200 mg oral 7-29 cap, PO, l capsule 16:27: TID, do [place] 00 not crush or chew, X 10 day, # 30 cap, 0 Refill(s), Pharmacy: [facility], 162.56, cm, 06/13/22 14:35:00 CDT, Height, 80.057, kg, 06/13/22 14:35:00 CDT, Weight bumetanide 0 Yes 1 mg = 1 Mem oria 1 mg oral 7-29 tab, PO, l tablet 16:27: BID, # 60 Harish n 00 tab, 1 Refill(s), Pharmacy: [facility], 162.56, cm, 06/13/22 14:35:00 CDT, Height, 80.057, kg, 06/13/22 14:35:00 CDT, Weight dextrometho 2021-0 Yes 10 mL, PO, Memoria rphan-guaiF 7-29 Q6H, PRN l ENesin 10 16:27: Cough, X Herm nupur mg-200 mg/5 00 14 day, # mL oral 120 mL, 0 liquid Refill(s), Pharmacy: [facility], 162.56, cm, 06/13/22 14:35:00 CDT, Height, 80.057, kg, 06/13/22 14:35:00 CDT, Weight benzonatate 2021-0 Yes 200 mg = 1 Memoria 200 mg oral 7-29 cap, PO, l capsule 16:27: TID, do [place] 00 not crush or chew, X 10 day, # 30 cap, 0 Refill(s), Pharmacy: [facility], 162.56, cm, 06/13/22 14:35:00 CDT, Height, 80.057, kg, 06/13/22 14:35:00 CDT, Weight bumetanide 2021-0 Yes 1 mg = 1 Mem oria 1 mg oral 7-29 tab, PO, l tablet 16:27: BID, # 60 Harish n 00 tab, 1 Refill(s), Pharmacy: [facility], 162.56, cm, 06/13/22 14:35:00 CDT, Height, 80.057, kg, 06/13/22 14:35:00 CDT, Weight dextrometho 2021-0 Yes 10 mL, PO, Memoria rphan-guaiF 7-29 Q6H, PRN l ENesin 10 16:27: Cough, X Herm nupur mg-200 mg/5 00 14 day, # mL oral 120 mL, 0 liquid Refill(s), Pharmacy: [facility], 162.56, cm, 06/13/22 14:35:00 CDT, Height, 80.057, kg, 06/13/22 14:35:00 CDT, Weight albuterol-i 2021-0 Yes 3 mL, NEB, Memoria pratropium 7-29 RQ4H, # l 2.5-0.5 mg 16:26: 540 mL, 0 He rmann inhalation 00 Refill(s), solution Pharmacy: [facility], 162.56, cm, 06/13/22 14:35:00 CDT, Height, 80.057, kg, 06/13/22 14:35:00 CDT, Weight aspirin 81 2-0 Yes 81 mg = 1 Me moria mg tablet, 7-29 tab, PO, l enteric 16:26: Daily, # Harish n coated 00 90 tab, 0 Refill(s), Pharmacy: [facility], 162.56, cm, 06/13/22 14:35:00 CDT, Height, 80.057, kg, 06/13/22 14:35:00 CDT, Weight albuterol-i 2021-0 Yes 3 mL, NEB, Memoria pratropium 7-29 RQ4H, # l 2.5-0.5 mg 16:26: 540 mL, 0 He rmann inhalation 00 Refill(s), solution Pharmacy: [facility], 162.56, cm, 06/13/22 14:35:00 CDT, Height, 80.057, kg, 06/13/22 14:35:00 CDT, Weight aspirin 81 2022-0 Yes 81 mg = 1 Me moria mg tablet, 7-29 tab, PO, l enteric 16:26: Daily, # Harish n coated 00 90 tab, 0 Refill(s), Pharmacy: [facility], 162.56, cm, 06/13/22 14:35:00 CDT, Height, 80.057, kg, 06/13/22 14:35:00 CDT, Weight albuterol-i 2021-0 Yes 3 mL, NEB, Memoria pratropium 7-29 RQ4H, # l 2.5-0.5 mg 16:26: 540 mL, 0 He rmann inhalation 00 Refill(s), solution Pharmacy: [facility], 162.56, cm, 06/13/22 14:35:00 CDT, Height, 80.057, kg, 06/13/22 14:35:00 CDT, Weight aspirin 81 2022-0 Yes 81 mg = 1 Me moria mg tablet, 7-29 tab, PO, l enteric 16:26: Daily, # Harish n coated 00 90 tab, 0 Refill(s), Pharmacy: [facility], 162.56, cm, 06/13/22 14:35:00 CDT, Height, 80.057, kg, 06/13/22 14:35:00 CDT, Weight albuterol-i 2022-0 Yes 3 mL, NEB, Memoria pratropium 7-29 RQ4H, # l 2.5-0.5 mg 16:26: 540 mL, 0 He rmann inhalation 00 Refill(s), solution Pharmacy: [facility], 162.56, cm, 06/13/22 14:35:00 CDT, Height, 80.057, kg, 06/13/22 14:35:00 CDT, Weight aspirin 81 2022-0 Yes 81 mg = 1 Me moria mg tablet, 7-29 tab, PO, l enteric 16:26: Daily, # Harish n coated 00 90 tab, 0 Refill(s), Pharmacy: [facility], 162.56, cm, 06/13/22 14:35:00 CDT, Height, 80.057, kg, 06/13/22 14:35:00 CDT, Weight albuterol-i 2021-0 Yes 3 mL, NEB, Memoria pratropium 7-29 RQ4H, # l 2.5-0.5 mg 16:26: 540 mL, 0 He rmann inhalation 00 Refill(s), solution Pharmacy: [facility], 162.56, cm, 06/13/22 14:35:00 CDT, Height, 80.057, kg, 06/13/22 14:35:00 CDT, Weight aspirin 81 2021-0 Yes 81 mg = 1 Me moria mg tablet, 7-29 tab, PO, l enteric 16:26: Daily, # Harish n coated 00 90 tab, 0 Refill(s), Pharmacy: [facility], 162.56, cm, 06/13/22 14:35:00 CDT, Height, 80.057, kg, 06/13/22 14:35:00 CDT, Weight albuterol-i 2021-0 Yes 3 mL, NEB, Memoria pratropium 7-29 RQ4H, # l 2.5-0.5 mg 16:26: 540 mL, 0 He rmann inhalation 00 Refill(s), solution Pharmacy: [facility], 162.56, cm, 06/13/22 14:35:00 CDT, Height, 80.057, kg, 06/13/22 14:35:00 CDT, Weight aspirin 81 2021-0 Yes 81 mg = 1 Me moria mg tablet, 7-29 tab, PO, l enteric 16:26: Daily, # Harish n coated 00 90 tab, 0 Refill(s), Pharmacy: [facility], 162.56, cm, 06/13/22 14:35:00 CDT, Height, 80.057, kg, 06/13/22 14:35:00 CDT, Weight albuterol-i 2022-0 Yes 3 mL, NEB, Memoria pratropium 7-29 RQ4H, # l 2.5-0.5 mg 16:26: 540 mL, 0 He rmann inhalation 00 Refill(s), solution Pharmacy: [facility], 162.56, cm, 06/13/22 14:35:00 CDT, Height, 80.057, kg, 06/13/22 14:35:00 CDT, Weight aspirin 81 2022-0 Yes 81 mg = 1 Me moria mg tablet, 7-29 tab, PO, l enteric 16:26: Daily, # Harish n coated 00 90 tab, 0 Refill(s), Pharmacy: [facility], 162.56, cm, 06/13/22 14:35:00 CDT, Height, 80.057, kg, 06/13/22 14:35:00 CDT, Weight albuterol-i 2-0 Yes 3 mL, NEB, Memoria pratropium 7-29 RQ4H, # l 2.5-0.5 mg 16:26: 540 mL, 0 He rmann inhalation 00 Refill(s), solution Pharmacy: [facility], 162.56, cm, 06/13/22 14:35:00 CDT, Height, 80.057, kg, 06/13/22 14:35:00 CDT, Weight aspirin 81 2022-0 Yes 81 mg = 1 Me moria mg tablet, 7-29 tab, PO, l enteric 16:26: Daily, # Harish n coated 00 90 tab, 0 Refill(s), Pharmacy: [facility], 162.56, cm, 06/13/22 14:35:00 CDT, Height, 80.057, kg, 06/13/22 14:35:00 CDT, Weight albuterol-i 2022-0 Yes 3 mL, NEB, Memoria pratropium 7-29 RQ4H, # l 2.5-0.5 mg 16:26: 540 mL, 0 He rmann inhalation 00 Refill(s), solution Pharmacy: [facility], 162.56, cm, 06/13/22 14:35:00 CDT, Height, 80.057, kg, 06/13/22 14:35:00 CDT, Weight aspirin 81 2021-0 Yes 81 mg = 1 Me moria mg tablet, 7-29 tab, PO, l enteric 16:26: Daily, # Harish n coated 00 90 tab, 0 Refill(s), Pharmacy: [facility], 162.56, cm, 06/13/22 14:35:00 CDT, Height, 80.057, kg, 06/13/22 14:35:00 CDT, Weight albuterol-i 2021-0 Yes 3 mL, NEB, Memoria pratropium 7-29 RQ4H, # l 2.5-0.5 mg 16:26: 540 mL, 0 He rmann inhalation 00 Refill(s), solution Pharmacy: [facility], 162.56, cm, 06/13/22 14:35:00 CDT, Height, 80.057, kg, 06/13/22 14:35:00 CDT, Weight aspirin 81 2021-0 Yes 81 mg = 1 Me moria mg tablet, 7-29 tab, PO, l enteric 16:26: Daily, # Harish n coated 00 90 tab, 0 Refill(s), Pharmacy: [facility], 162.56, cm, 06/13/22 14:35:00 CDT, Height, 80.057, kg, 06/13/22 14:35:00 CDT, Weight albuterol-i 2021-0 Yes 3 mL, NEB, Memoria pratropium 7-29 RQ4H, # l 2.5-0.5 mg 16:26: 540 mL, 0 He rmann inhalation 00 Refill(s), solution Pharmacy: [facility], 162.56, cm, 06/13/22 14:35:00 CDT, Height, 80.057, kg, 06/13/22 14:35:00 CDT, Weight aspirin 81 2-0 Yes 81 mg = 1 Me moria mg tablet, 7-29 tab, PO, l enteric 16:26: Daily, # Harish n coated 00 90 tab, 0 Refill(s), Pharmacy: [facility], 162.56, cm, 06/13/22 14:35:00 CDT, Height, 80.057, kg, 06/13/22 14:35:00 CDT, Weight albuterol-i 2-0 Yes 3 mL, NEB, Memoria pratropium 7-29 RQ4H, # l 2.5-0.5 mg 16:26: 540 mL, 0 He rmann inhalation 00 Refill(s), solution Pharmacy: [facility], 162.56, cm, 06/13/22 14:35:00 CDT, Height, 80.057, kg, 06/13/22 14:35:00 CDT, Weight aspirin 81 2021-0 Yes 81 mg = 1 Me moria mg tablet, 7-29 tab, PO, l enteric 16:26: Daily, # Harish n coated 00 90 tab, 0 Refill(s), Pharmacy: [facility], 162.56, cm, 06/13/22 14:35:00 CDT, Height, 80.057, kg, 06/13/22 14:35:00 CDT, Weight albuterol-i 2021-0 Yes 3 mL, NEB, Memoria pratropium 7-29 RQ4H, # l 2.5-0.5 mg 16:26: 540 mL, 0 He rmann inhalation 00 Refill(s), solution Pharmacy: [facility], 162.56, cm, 06/13/22 14:35:00 CDT, Height, 80.057, kg, 06/13/22 14:35:00 CDT, Weight aspirin 81 2021-0 Yes 81 mg = 1 Me moria mg tablet, 7-29 tab, PO, l enteric 16:26: Daily, # Harish n coated 00 90 tab, 0 Refill(s), Pharmacy: [facility], 162.56, cm, 06/13/22 14:35:00 CDT, Height, 80.057, kg, 06/13/22 14:35:00 CDT, Weight albuterol-i 2-0 Yes 3 mL, NEB, Memoria pratropium 7-29 RQ4H, # l 2.5-0.5 mg 16:26: 540 mL, 0 He rmann inhalation 00 Refill(s), solution Pharmacy: [facility], 162.56, cm, 06/13/22 14:35:00 CDT, Height, 80.057, kg, 06/13/22 14:35:00 CDT, Weight aspirin 81 2022-0 Yes 81 mg = 1 Me moria mg tablet, 7-29 tab, PO, l enteric 16:26: Daily, # Harish n coated 00 90 tab, 0 Refill(s), Pharmacy: [facility], 162.56, cm, 06/13/22 14:35:00 CDT, Height, 80.057, kg, 06/13/22 14:35:00 CDT, Weight albuterol-i 2-0 Yes 3 mL, NEB, Memoria pratropium 7-29 RQ4H, # l 2.5-0.5 mg 16:26: 540 mL, 0 He rmann inhalation 00 Refill(s), solution Pharmacy: [facility], 162.56, cm, 06/13/22 14:35:00 CDT, Height, 80.057, kg, 06/13/22 14:35:00 CDT, Weight aspirin 81 2-0 Yes 81 mg = 1 Me moria mg tablet, 7-29 tab, PO, l enteric 16:26: Daily, # Harish n coated 00 90 tab, 0 Refill(s), Pharmacy: [facility], 162.56, cm, 06/13/22 14:35:00 CDT, Height, 80.057, kg, 06/13/22 14:35:00 CDT, Weight albuterol-i 2-0 Yes 3 mL, NEB, Memoria pratropium 7-29 RQ4H, # l 2.5-0.5 mg 16:26: 540 mL, 0 He rmann inhalation 00 Refill(s), solution Pharmacy: [facility], 162.56, cm, 06/13/22 14:35:00 CDT, Height, 80.057, kg, 06/13/22 14:35:00 CDT, Weight aspirin 81 2022-0 Yes 81 mg = 1 Me moria mg tablet, 7-29 tab, PO, l enteric 16:26: Daily, # Harish n coated 00 90 tab, 0 Refill(s), Pharmacy: [facility], 162.56, cm, 06/13/22 14:35:00 CDT, Height, 80.057, kg, 06/13/22 14:35:00 CDT, Weight albuterol-i 2022-0 Yes 3 mL, NEB, Memoria pratropium 7-29 RQ4H, # l 2.5-0.5 mg 16:26: 540 mL, 0 He rmann inhalation 00 Refill(s), solution Pharmacy: [facility], 162.56, cm, 06/13/22 14:35:00 CDT, Height, 80.057, kg, 06/13/22 14:35:00 CDT, Weight aspirin 81 2022-0 Yes 81 mg = 1 Me moria mg tablet, 7-29 tab, PO, l enteric 16:26: Daily, # Harish n coated 00 90 tab, 0 Refill(s), Pharmacy: [facility], 162.56, cm, 06/13/22 14:35:00 CDT, Height, 80.057, kg, 06/13/22 14:35:00 CDT, Weight albuterol-i 2022-0 Yes 3 mL, NEB, Memoria pratropium 7-29 RQ4H, # l 2.5-0.5 mg 16:26: 540 mL, 0 He rmann inhalation 00 Refill(s), solution Pharmacy: [facility], 162.56, cm, 06/13/22 14:35:00 CDT, Height, 80.057, kg, 06/13/22 14:35:00 CDT, Weight aspirin 81 2022-0 Yes 81 mg = 1 Me moria mg tablet, 7-29 tab, PO, l enteric 16:26: Daily, # Harish n coated 00 90 tab, 0 Refill(s), Pharmacy: [facility], 162.56, cm, 06/13/22 14:35:00 CDT, Height, 80.057, kg, 06/13/22 14:35:00 CDT, Weight albuterol-i 2022-0 Yes 3 mL, NEB, Memoria pratropium 7-29 RQ4H, # l 2.5-0.5 mg 16:26: 540 mL, 0 He rmann inhalation 00 Refill(s), solution Pharmacy: [facility], 162.56, cm, 06/13/22 14:35:00 CDT, Height, 80.057, kg, 06/13/22 14:35:00 CDT, Weight aspirin 81 2022-0 Yes 81 mg = 1 Me moria mg tablet, 7-29 tab, PO, l enteric 16:26: Daily, # Harish n coated 00 90 tab, 0 Refill(s), Pharmacy: [facility], 162.56, cm, 06/13/22 14:35:00 CDT, Height, 80.057, kg, 06/13/22 14:35:00 CDT, Weight albuterol-i 2021-0 Yes 3 mL, NEB, Memoria pratropium 7-29 RQ4H, # l 2.5-0.5 mg 16:26: 540 mL, 0 He rmann inhalation 00 Refill(s), solution Pharmacy: [facility], 162.56, cm, 06/13/22 14:35:00 CDT, Height, 80.057, kg, 06/13/22 14:35:00 CDT, Weight aspirin 81 2021-0 Yes 81 mg = 1 Me moria mg tablet, 7-29 tab, PO, l enteric 16:26: Daily, # Harish n coated 00 90 tab, 0 Refill(s), Pharmacy: [facility], 162.56, cm, 06/13/22 14:35:00 CDT, Height, 80.057, kg, 06/13/22 14:35:00 CDT, Weight albuterol-i 2021-0 Yes 3 mL, NEB, Memoria pratropium 7-29 RQ4H, # l 2.5-0.5 mg 16:26: 540 mL, 0 He rmann inhalation 00 Refill(s), solution Pharmacy: [facility], 162.56, cm, 06/13/22 14:35:00 CDT, Height, 80.057, kg, 06/13/22 14:35:00 CDT, Weight aspirin 81 2022-0 Yes 81 mg = 1 Me moria mg tablet, 7-29 tab, PO, l enteric 16:26: Daily, # Harish n coated 00 90 tab, 0 Refill(s), Pharmacy: [facility], 162.56, cm, 06/13/22 14:35:00 CDT, Height, 80.057, kg, 06/13/22 14:35:00 CDT, Weight albuterol-i 2021-0 Yes 3 mL, NEB, Memoria pratropium 7-29 RQ4H, # l 2.5-0.5 mg 16:26: 540 mL, 0 He rmann inhalation 00 Refill(s), solution Pharmacy: [facility], 162.56, cm, 06/13/22 14:35:00 CDT, Height, 80.057, kg, 06/13/22 14:35:00 CDT, Weight aspirin 81 2021-0 Yes 81 mg = 1 Me moria mg tablet, 7-29 tab, PO, l enteric 16:26: Daily, # Harish n coated 00 90 tab, 0 Refill(s), Pharmacy: [facility], 162.56, cm, 06/13/22 14:35:00 CDT, Height, 80.057, kg, 06/13/22 14:35:00 CDT, Weight albuterol-i 2021-0 Yes 3 mL, NEB, Memoria pratropium 7-29 RQ4H, # l 2.5-0.5 mg 16:26: 540 mL, 0 He rmann inhalation 00 Refill(s), solution Pharmacy: [facility], 162.56, cm, 06/13/22 14:35:00 CDT, Height, 80.057, kg, 06/13/22 14:35:00 CDT, Weight aspirin 81 2021-0 Yes 81 mg = 1 Me moria mg tablet, 7-29 tab, PO, l enteric 16:26: Daily, # Harish n coated 00 90 tab, 0 Refill(s), Pharmacy: [facility], 162.56, cm, 06/13/22 14:35:00 CDT, Height, 80.057, kg, 06/13/22 14:35:00 CDT, Weight albuterol-i 2022-0 Yes 3 mL, NEB, Memoria pratropium 7-29 RQ4H, # l 2.5-0.5 mg 16:26: 540 mL, 0 He rmann inhalation 00 Refill(s), solution Pharmacy: [facility], 162.56, cm, 06/13/22 14:35:00 CDT, Height, 80.057, kg, 06/13/22 14:35:00 CDT, Weight aspirin 81 2022-0 Yes 81 mg = 1 Me moria mg tablet, 7-29 tab, PO, l enteric 16:26: Daily, # Harish n coated 00 90 tab, 0 Refill(s), Pharmacy: [facility], 162.56, cm, 06/13/22 14:35:00 CDT, Height, 80.057, kg, 06/13/22 14:35:00 CDT, Weight albuterol-i 2-0 Yes 3 mL, NEB, Memoria pratropium 7-29 RQ4H, # l 2.5-0.5 mg 16:26: 540 mL, 0 He rmann inhalation 00 Refill(s), solution Pharmacy: [facility], 162.56, cm, 06/13/22 14:35:00 CDT, Height, 80.057, kg, 06/13/22 14:35:00 CDT, Weight aspirin 81 2-0 Yes 81 mg = 1 Me moria mg tablet, 7-29 tab, PO, l enteric 16:26: Daily, # Harish n coated 00 90 tab, 0 Refill(s), Pharmacy: [facility], 162.56, cm, 06/13/22 14:35:00 CDT, Height, 80.057, kg, 06/13/22 14:35:00 CDT, Weight albuterol-i 2022-0 Yes 3 mL, NEB, Memoria pratropium 7-29 RQ4H, # l 2.5-0.5 mg 16:26: 540 mL, 0 He rmann inhalation 00 Refill(s), solution Pharmacy: [facility], 162.56, cm, 06/13/22 14:35:00 CDT, Height, 80.057, kg, 06/13/22 14:35:00 CDT, Weight aspirin 81 2021-0 Yes 81 mg = 1 Me moria mg tablet, 7-29 tab, PO, l enteric 16:26: Daily, # Harish n coated 00 90 tab, 0 Refill(s), Pharmacy: [facility], 162.56, cm, 06/13/22 14:35:00 CDT, Height, 80.057, kg, 06/13/22 14:35:00 CDT, Weight albuterol-i 2021-0 Yes 3 mL, NEB, Memoria pratropium 7-29 RQ4H, # l 2.5-0.5 mg 16:26: 540 mL, 0 He rmann inhalation 00 Refill(s), solution Pharmacy: [facility], 162.56, cm, 06/13/22 14:35:00 CDT, Height, 80.057, kg, 06/13/22 14:35:00 CDT, Weight aspirin 81 2021-0 Yes 81 mg = 1 Me moria mg tablet, 7-29 tab, PO, l enteric 16:26: Daily, # Harish n coated 00 90 tab, 0 Refill(s), Pharmacy: [facility], 162.56, cm, 06/13/22 14:35:00 CDT, Height, 80.057, kg, 06/13/22 14:35:00 CDT, Weight albuterol-i 2021-0 Yes 3 mL, NEB, Memoria pratropium 7-29 RQ4H, # l 2.5-0.5 mg 16:26: 540 mL, 0 He rmann inhalation 00 Refill(s), solution Pharmacy: [facility], 162.56, cm, 06/13/22 14:35:00 CDT, Height, 80.057, kg, 06/13/22 14:35:00 CDT, Weight aspirin 81 2-0 Yes 81 mg = 1 Me moria mg tablet, 7-29 tab, PO, l enteric 16:26: Daily, # Harish n coated 00 90 tab, 0 Refill(s), Pharmacy: [facility], 162.56, cm, 06/13/22 14:35:00 CDT, Height, 80.057, kg, 06/13/22 14:35:00 CDT, Weight albuterol-i 2-0 Yes 3 mL, NEB, Memoria pratropium 7-29 RQ4H, # l 2.5-0.5 mg 16:26: 540 mL, 0 He rmann inhalation 00 Refill(s), solution Pharmacy: [facility], 162.56, cm, 06/13/22 14:35:00 CDT, Height, 80.057, kg, 06/13/22 14:35:00 CDT, Weight aspirin 81 2-0 Yes 81 mg = 1 Me moria mg tablet, 7-29 tab, PO, l enteric 16:26: Daily, # Harish n coated 00 90 tab, 0 Refill(s), Pharmacy: [facility], 162.56, cm, 06/13/22 14:35:00 CDT, Height, 80.057, kg, 06/13/22 14:35:00 CDT, Weight albuterol-i 2021-0 Yes 3 mL, NEB, Memoria pratropium 7-29 RQ4H, # l 2.5-0.5 mg 16:26: 540 mL, 0 He rmann inhalation 00 Refill(s), solution Pharmacy: [facility], 162.56, cm, 06/13/22 14:35:00 CDT, Height, 80.057, kg, 06/13/22 14:35:00 CDT, Weight aspirin 81 2-0 Yes 81 mg = 1 Me moria mg tablet, 7-29 tab, PO, l enteric 16:26: Daily, # Harish n coated 00 90 tab, 0 Refill(s), Pharmacy: [facility], 162.56, cm, 06/13/22 14:35:00 CDT, Height, 80.057, kg, 06/13/22 14:35:00 CDT, Weight albuterol-i 2-0 Yes 3 mL, NEB, Memoria pratropium 7-29 RQ4H, # l 2.5-0.5 mg 16:26: 540 mL, 0 He rmann inhalation 00 Refill(s), solution Pharmacy: [facility], 162.56, cm, 06/13/22 14:35:00 CDT, Height, 80.057, kg, 06/13/22 14:35:00 CDT, Weight aspirin 81 2022-0 Yes 81 mg = 1 Me moria mg tablet, 7-29 tab, PO, l enteric 16:26: Daily, # Harish n coated 00 90 tab, 0 Refill(s), Pharmacy: [facility], 162.56, cm, 06/13/22 14:35:00 CDT, Height, 80.057, kg, 06/13/22 14:35:00 CDT, Weight albuterol-i 2-0 Yes 3 mL, NEB, Memoria pratropium 7-29 RQ4H, # l 2.5-0.5 mg 16:26: 540 mL, 0 He rmann inhalation 00 Refill(s), solution Pharmacy: [facility], 162.56, cm, 06/13/22 14:35:00 CDT, Height, 80.057, kg, 06/13/22 14:35:00 CDT, Weight aspirin 81 2021-0 Yes 81 mg = 1 Me moria mg tablet, 7-29 tab, PO, l enteric 16:26: Daily, # Harish n coated 00 90 tab, 0 Refill(s), Pharmacy: [facility], 162.56, cm, 06/13/22 14:35:00 CDT, Height, 80.057, kg, 06/13/22 14:35:00 CDT, Weight albuterol-i 2-0 Yes 3 mL, NEB, Memoria pratropium 7-29 RQ4H, # l 2.5-0.5 mg 16:26: 540 mL, 0 He rmann inhalation 00 Refill(s), solution Pharmacy: [facility], 162.56, cm, 06/13/22 14:35:00 CDT, Height, 80.057, kg, 06/13/22 14:35:00 CDT, Weight aspirin 81 2-0 Yes 81 mg = 1 Me moria mg tablet, 7-29 tab, PO, l enteric 16:26: Daily, # Harish n coated 00 90 tab, 0 Refill(s), Pharmacy: [facility], 162.56, cm, 06/13/22 14:35:00 CDT, Height, 80.057, kg, 06/13/22 14:35:00 CDT, Weight albuterol-i 2022-0 Yes 3 mL, NEB, Memoria pratropium 7-29 RQ4H, # l 2.5-0.5 mg 16:26: 540 mL, 0 He rmann inhalation 00 Refill(s), solution Pharmacy: [facility], 162.56, cm, 06/13/22 14:35:00 CDT, Height, 80.057, kg, 06/13/22 14:35:00 CDT, Weight aspirin 81 2022-0 Yes 81 mg = 1 Me moria mg tablet, 7-29 tab, PO, l enteric 16:26: Daily, # Harish n coated 00 90 tab, 0 Refill(s), Pharmacy: [facility], 162.56, cm, 06/13/22 14:35:00 CDT, Height, 80.057, kg, 06/13/22 14:35:00 CDT, Weight albuterol-i 2022-0 Yes 3 mL, NEB, Memoria pratropium 7-29 RQ4H, # l 2.5-0.5 mg 16:26: 540 mL, 0 He rmann inhalation 00 Refill(s), solution Pharmacy: [facility], 162.56, cm, 06/13/22 14:35:00 CDT, Height, 80.057, kg, 06/13/22 14:35:00 CDT, Weight aspirin 81 2022-0 Yes 81 mg = 1 Me moria mg tablet, 7-29 tab, PO, l enteric 16:26: Daily, # Harish n coated 00 90 tab, 0 Refill(s), Pharmacy: [facility], 162.56, cm, 06/13/22 14:35:00 CDT, Height, 80.057, kg, 06/13/22 14:35:00 CDT, Weight albuterol-i 2022-0 Yes 3 mL, NEB, Memoria pratropium 7-29 RQ4H, # l 2.5-0.5 mg 16:26: 540 mL, 0 He rmann inhalation 00 Refill(s), solution Pharmacy: [facility], 162.56, cm, 06/13/22 14:35:00 CDT, Height, 80.057, kg, 06/13/22 14:35:00 CDT, Weight aspirin 81 2022-0 Yes 81 mg = 1 Me moria mg tablet, 7-29 tab, PO, l enteric 16:26: Daily, # Harish n coated 00 90 tab, 0 Refill(s), Pharmacy: [facility], 162.56, cm, 06/13/22 14:35:00 CDT, Height, 80.057, kg, 06/13/22 14:35:00 CDT, Weight albuterol-i 2021-0 Yes 3 mL, NEB, Memoria pratropium 7-29 RQ4H, # l 2.5-0.5 mg 16:26: 540 mL, 0 He rmann inhalation 00 Refill(s), solution Pharmacy: [facility], 162.56, cm, 06/13/22 14:35:00 CDT, Height, 80.057, kg, 06/13/22 14:35:00 CDT, Weight aspirin 81 2-0 Yes 81 mg = 1 Me moria mg tablet, 7-29 tab, PO, l enteric 16:26: Daily, # Harish n coated 00 90 tab, 0 Refill(s), Pharmacy: [facility], 162.56, cm, 06/13/22 14:35:00 CDT, Height, 80.057, kg, 06/13/22 14:35:00 CDT, Weight albuterol-i 2022-0 Yes 3 mL, NEB, Memoria pratropium 7-29 RQ4H, # l 2.5-0.5 mg 16:26: 540 mL, 0 He rmann inhalation 00 Refill(s), solution Pharmacy: [facility], 162.56, cm, 06/13/22 14:35:00 CDT, Height, 80.057, kg, 06/13/22 14:35:00 CDT, Weight aspirin 81 2022-0 Yes 81 mg = 1 Me moria mg tablet, 7-29 tab, PO, l enteric 16:26: Daily, # Harish n coated 00 90 tab, 0 Refill(s), Pharmacy: [facility], 162.56, cm, 06/13/22 14:35:00 CDT, Height, 80.057, kg, 06/13/22 14:35:00 CDT, Weight albuterol-i 2021-0 Yes 3 mL, NEB, Memoria pratropium 7-29 RQ4H, # l 2.5-0.5 mg 16:26: 540 mL, 0 He rmann inhalation 00 Refill(s), solution Pharmacy: [facility], 162.56, cm, 06/13/22 14:35:00 CDT, Height, 80.057, kg, 06/13/22 14:35:00 CDT, Weight aspirin 81 2021-0 Yes 81 mg = 1 Me moria mg tablet, 7-29 tab, PO, l enteric 16:26: Daily, # Harish n coated 00 90 tab, 0 Refill(s), Pharmacy: [facility], 162.56, cm, 06/13/22 14:35:00 CDT, Height, 80.057, kg, 06/13/22 14:35:00 CDT, Weight albuterol-i 2021-0 Yes 3 mL, NEB, Memoria pratropium 7-29 RQ4H, # l 2.5-0.5 mg 16:26: 540 mL, 0 He rmann inhalation 00 Refill(s), solution Pharmacy: [facility], 162.56, cm, 06/13/22 14:35:00 CDT, Height, 80.057, kg, 06/13/22 14:35:00 CDT, Weight aspirin 81 2021-0 Yes 81 mg = 1 Me moria mg tablet, 7-29 tab, PO, l enteric 16:26: Daily, # Harish n coated 00 90 tab, 0 Refill(s), Pharmacy: [facility], 162.56, cm, 06/13/22 14:35:00 CDT, Height, 80.057, kg, 06/13/22 14:35:00 CDT, Weight albuterol-i 2022-0 Yes 3 mL, NEB, Memoria pratropium 7-29 RQ4H, # l 2.5-0.5 mg 16:26: 540 mL, 0 He rmann inhalation 00 Refill(s), solution Pharmacy: [facility], 162.56, cm, 06/13/22 14:35:00 CDT, Height, 80.057, kg, 06/13/22 14:35:00 CDT, Weight aspirin 81 2022-0 Yes 81 mg = 1 Me moria mg tablet, 7-29 tab, PO, l enteric 16:26: Daily, # Harish n coated 00 90 tab, 0 Refill(s), Pharmacy: [facility], 162.56, cm, 06/13/22 14:35:00 CDT, Height, 80.057, kg, 06/13/22 14:35:00 CDT, Weight albuterol-i 2021-0 Yes 3 mL, NEB, Memoria pratropium 7-29 RQ4H, # l 2.5-0.5 mg 16:26: 540 mL, 0 He rmann inhalation 00 Refill(s), solution Pharmacy: [facility], 162.56, cm, 06/13/22 14:35:00 CDT, Height, 80.057, kg, 06/13/22 14:35:00 CDT, Weight aspirin 81 2022-0 Yes 81 mg = 1 Me moria mg tablet, 7-29 tab, PO, l enteric 16:26: Daily, # Harish n coated 00 90 tab, 0 Refill(s), Pharmacy: [facility], 162.56, cm, 06/13/22 14:35:00 CDT, Height, 80.057, kg, 06/13/22 14:35:00 CDT, Weight albuterol-i 2022-0 Yes 3 mL, NEB, Memoria pratropium 7-29 RQ4H, # l 2.5-0.5 mg 16:26: 540 mL, 0 He rmann inhalation 00 Refill(s), solution Pharmacy: [facility], 162.56, cm, 06/13/22 14:35:00 CDT, Height, 80.057, kg, 06/13/22 14:35:00 CDT, Weight aspirin 81 2021-0 Yes 81 mg = 1 Me moria mg tablet, 7-29 tab, PO, l enteric 16:26: Daily, # Harish n coated 00 90 tab, 0 Refill(s), Pharmacy: [facility], 162.56, cm, 06/13/22 14:35:00 CDT, Height, 80.057, kg, 06/13/22 14:35:00 CDT, Weight albuterol-i 202-0 Yes 3 mL, NEB, Memoria pratropium 7-29 RQ4H, # l 2.5-0.5 mg 16:26: 540 mL, 0 He rmann inhalation 00 Refill(s), solution Pharmacy: [facility], 162.56, cm, 06/13/22 14:35:00 CDT, Height, 80.057, kg, 06/13/22 14:35:00 CDT, Weight aspirin 81 2021-0 Yes 81 mg = 1 Me moria mg tablet, 7-29 tab, PO, l enteric 16:26: Daily, # Harish n coated 00 90 tab, 0 Refill(s), Pharmacy: [facility], 162.56, cm, 06/13/22 14:35:00 CDT, Height, 80.057, kg, 06/13/22 14:35:00 CDT, Weight albuterol-i 2021-0 Yes 3 mL, NEB, Memoria pratropium 7-29 RQ4H, # l 2.5-0.5 mg 16:26: 540 mL, 0 He rmann inhalation 00 Refill(s), solution Pharmacy: [facility], 162.56, cm, 06/13/22 14:35:00 CDT, Height, 80.057, kg, 06/13/22 14:35:00 CDT, Weight aspirin 81 2-0 Yes 81 mg = 1 Me moria mg tablet, 7-29 tab, PO, l enteric 16:26: Daily, # Harish n coated 00 90 tab, 0 Refill(s), Pharmacy: [facility], 162.56, cm, 06/13/22 14:35:00 CDT, Height, 80.057, kg, 06/13/22 14:35:00 CDT, Weight albuterol-i 2-0 Yes 3 mL, NEB, Memoria pratropium 7-29 RQ4H, # l 2.5-0.5 mg 16:26: 540 mL, 0 He rmann inhalation 00 Refill(s), solution Pharmacy: [facility], 162.56, cm, 06/13/22 14:35:00 CDT, Height, 80.057, kg, 06/13/22 14:35:00 CDT, Weight aspirin 81 2-0 Yes 81 mg = 1 Me moria mg tablet, 7-29 tab, PO, l enteric 16:26: Daily, # Harish n coated 00 90 tab, 0 Refill(s), Pharmacy: [facility], 162.56, cm, 06/13/22 14:35:00 CDT, Height, 80.057, kg, 06/13/22 14:35:00 CDT, Weight albuterol-i 2021-0 Yes 3 mL, NEB, Memoria pratropium 7-29 RQ4H, # l 2.5-0.5 mg 16:26: 540 mL, 0 He rmann inhalation 00 Refill(s), solution Pharmacy: [facility], 162.56, cm, 06/13/22 14:35:00 CDT, Height, 80.057, kg, 06/13/22 14:35:00 CDT, Weight aspirin 81 2021-0 Yes 81 mg = 1 Me moria mg tablet, 7-29 tab, PO, l enteric 16:26: Daily, # Harish n coated 00 90 tab, 0 Refill(s), Pharmacy: [facility], 162.56, cm, 06/13/22 14:35:00 CDT, Height, 80.057, kg, 06/13/22 14:35:00 CDT, Weight albuterol-i 2-0 Yes 3 mL, NEB, Memoria pratropium 7-29 RQ4H, # l 2.5-0.5 mg 16:26: 540 mL, 0 He rmann inhalation 00 Refill(s), solution Pharmacy: [facility], 162.56, cm, 06/13/22 14:35:00 CDT, Height, 80.057, kg, 06/13/22 14:35:00 CDT, Weight aspirin 81 2022-0 Yes 81 mg = 1 Me moria mg tablet, 7-29 tab, PO, l enteric 16:26: Daily, # Harish n coated 00 90 tab, 0 Refill(s), Pharmacy: [facility], 162.56, cm, 06/13/22 14:35:00 CDT, Height, 80.057, kg, 06/13/22 14:35:00 CDT, Weight albuterol-i 2021-0 Yes 3 mL, NEB, Memoria pratropium 7-29 RQ4H, # l 2.5-0.5 mg 16:26: 540 mL, 0 He rmann inhalation 00 Refill(s), solution Pharmacy: [facility], 162.56, cm, 06/13/22 14:35:00 CDT, Height, 80.057, kg, 06/13/22 14:35:00 CDT, Weight aspirin 81 2021-0 Yes 81 mg = 1 Me moria mg tablet, 7-29 tab, PO, l enteric 16:26: Daily, # Harish n coated 00 90 tab, 0 Refill(s), Pharmacy: [facility], 162.56, cm, 06/13/22 14:35:00 CDT, Height, 80.057, kg, 06/13/22 14:35:00 CDT, Weight albuterol-i 2021-0 Yes 3 mL, NEB, Memoria pratropium 7-29 RQ4H, # l 2.5-0.5 mg 16:26: 540 mL, 0 He rmann inhalation 00 Refill(s), solution Pharmacy: [facility], 162.56, cm, 06/13/22 14:35:00 CDT, Height, 80.057, kg, 06/13/22 14:35:00 CDT, Weight aspirin 81 2-0 Yes 81 mg = 1 Me moria mg tablet, 7-29 tab, PO, l enteric 16:26: Daily, # Harish n coated 00 90 tab, 0 Refill(s), Pharmacy: [facility], 162.56, cm, 06/13/22 14:35:00 CDT, Height, 80.057, kg, 06/13/22 14:35:00 CDT, Weight albuterol-i 2022-0 Yes 3 mL, NEB, Memoria pratropium 7-29 RQ4H, # l 2.5-0.5 mg 16:26: 540 mL, 0 He rmann inhalation 00 Refill(s), solution Pharmacy: [facility], 162.56, cm, 06/13/22 14:35:00 CDT, Height, 80.057, kg, 06/13/22 14:35:00 CDT, Weight aspirin 81 2022-0 Yes 81 mg = 1 Me moria mg tablet, 7-29 tab, PO, l enteric 16:26: Daily, # Harish n coated 00 90 tab, 0 Refill(s), Pharmacy: [facility], 162.56, cm, 06/13/22 14:35:00 CDT, Height, 80.057, kg, 06/13/22 14:35:00 CDT, Weight albuterol-i 2022-0 Yes 3 mL, NEB, Memoria pratropium 7-29 RQ4H, # l 2.5-0.5 mg 16:26: 540 mL, 0 He rmann inhalation 00 Refill(s), solution Pharmacy: [facility], 162.56, cm, 06/13/22 14:35:00 CDT, Height, 80.057, kg, 06/13/22 14:35:00 CDT, Weight aspirin 81 2022-0 Yes 81 mg = 1 Me moria mg tablet, 7-29 tab, PO, l enteric 16:26: Daily, # Harish n coated 00 90 tab, 0 Refill(s), Pharmacy: [facility], 162.56, cm, 06/13/22 14:35:00 CDT, Height, 80.057, kg, 06/13/22 14:35:00 CDT, Weight albuterol-i 2022-0 Yes 3 mL, NEB, Memoria pratropium 7-29 RQ4H, # l 2.5-0.5 mg 16:26: 540 mL, 0 He rmann inhalation 00 Refill(s), solution Pharmacy: [facility], 162.56, cm, 06/13/22 14:35:00 CDT, Height, 80.057, kg, 06/13/22 14:35:00 CDT, Weight aspirin 81 2021-0 Yes 81 mg = 1 Me moria mg tablet, 7-29 tab, PO, l enteric 16:26: Daily, # Harish n coated 00 90 tab, 0 Refill(s), Pharmacy: [facility], 162.56, cm, 06/13/22 14:35:00 CDT, Height, 80.057, kg, 06/13/22 14:35:00 CDT, Weight albuterol-i 0 Yes 3 mL, NEB, Memoria pratropium 7-29 RQ4H, # l 2.5-0.5 mg 16:26: 540 mL, 0 He rmann inhalation 00 Refill(s), solution Pharmacy: [facility], 162.56, cm, 06/13/22 14:35:00 CDT, Height, 80.057, kg, 06/13/22 14:35:00 CDT, Weight aspirin 81 2021-0 Yes 81 mg = 1 Me moria mg tablet, 7-29 tab, PO, l enteric 16:26: Daily, # Harish n coated 00 90 tab, 0 Refill(s), Pharmacy: [facility], 162.56, cm, 06/13/22 14:35:00 CDT, Height, 80.057, kg, 06/13/22 14:35:00 CDT, Weight magnesium 0 No Notes: Memori a sulfate 06-17 WASTE: F/P l 14:02: - Sink; E - [employer]ash [employer] potassium Yes /= 14 Memoria chloride 7-29 Cymro, l 14:02: march dissolve each 20 mEq tablet in 4 oz of water. Allow about 2 minutes for the tablets to disintegra te. Stir before giving to prepare slurry and administer . Please exclude patient's with feeding tube less than 14 Cymro (Elmer J-tube, etc) and pediatric and patients. magnesium No Notes: Memori a sulfate 7-29 WASTE: F/P l 14:02: - Sink; E [place] 00 - [employer] Trash Bin potassium Yes /= 14 Memoria chloride 7-29 Cymro, l 14:02: march [place] 00 dissolve each 20 mEq tablet in 4 oz of water. Allow about 2 minutes for the tablets to disintegra te. Stir before giving to prepare slurry and administer . Please exclude patient's with feeding tube less than 14 Cymro (Dobhoff, J-tube, etc) and pediatric and patients. magnesium No Notes: Memori a sulfate 7-29 WASTE: F/P l 14:02: - Sink; E [place] 00 - [facility] Trash Bin potassium Yes /= 14 Memoria chloride 7-29 Cym[place], l 14:02: march [place] 00 dissolve each 20 mEq tablet in 4 oz of water. Allow about 2 minutes for the tablets to disintegra te. Stir before giving to prepare slurry and administer . Please exclude patient's with feeding tube less than 14 Cymro (Dobhoff, J-tube, etc) and pediatric and patients. magnesium No Notes: Memori a sulfate 7-29 WASTE: F/P l 14:02: - Sink; E [place] 00 - [employer] Trash Bin potassium Yes /= 14 Memoria chloride 7-29 Cymro, l 14:02: march [place] 00 dissolve each 20 mEq tablet in 4 oz of water. Allow about 2 minutes for the tablets to disintegra te. Stir before giving to prepare slurry and administer . Please exclude patient's with feeding tube less than 14 Cymro (Dobhoff, J-tube, etc) and pediatric and patients. magnesium No Notes: Memori a sulfate 7-29 WASTE: F/P l 14:02: - Sink; E [place] 00 - [facility] Trash Bin potassium Yes /= 14 Memoria chloride 7-29 [place], l 14:02: march [place] 00 dissolve each 20 mEq tablet in 4 oz of water. Allow about 2 minutes for the tablets to disintegra te. Stir before giving to prepare slurry and administer . Please exclude patient's with feeding tube less than 14 Cymro (Dobhoff, J-tube, etc) and pediatric and patients. magnesium No Notes: Memori a sulfate 7-29 WASTE: F/P l 14:02: - Sink; E [place] 00 - [employer] Trash Bin potassium Yes /= 14 Memoria chloride 7-29 C[place], l 14:02: march [place] 00 dissolve each 20 mEq tablet in 4 oz of water. Allow about 2 minutes for the tablets to disintegra te. Stir before giving to prepare slurry and administer . Please exclude patient's with feeding tube less than 14 Cymro (Dobhoff, J-tube, etc) and pediatric and patients. magnesium No Notes: Memori a sulfate 7-29 WASTE: F/P l 14:02: - Sink; E [place] 00 - [employer] Trash Bin potassium Yes /= 14 Memoria chloride 7-29 [place], l 14:02: march [place] 00 dissolve each 20 mEq tablet in 4 oz of water. Allow about 2 minutes for the tablets to disintegra te. Stir before giving to prepare slurry and administer . Please exclude patient's with feeding tube less than 14 Cym[place] (Dobhoff, J-tube, etc) and pediatric and patients. magnesium No Notes: Memori a sulfate 7-29 WASTE: F/P l 14:02: - Sink; E [place] 00 - [employer] Trash Bin potassium Yes /= 14 Memoria chloride 7-29 [place], l 14:02: march [place] 00 dissolve each 20 mEq tablet in 4 oz of water. Allow about 2 minutes for the tablets to disintegra te. Stir before giving to prepare slurry and administer . Please exclude patient's with feeding tube less than 14 Cymro (Dobhoff, J-tube, etc) and pediatric and patients. magnesium No Notes: Memori a sulfate 7-29 WASTE: F/P l 14:02: - Sink; E [place] 00 - [employer] Trash Bin potassium Yes /= 14 Memoria chloride 7-29 [place], l 14:02: march [place] 00 dissolve each 20 mEq tablet in 4 oz of water. Allow about 2 minutes for the tablets to disintegra te. Stir before giving to prepare slurry and administer . Please exclude patient's with feeding tube less than 14 Cym[place] (Dobhoff, J-tube, etc) and pediatric and patients. magnesium No Notes: Memori a sulfate 7-29 WASTE: F/P l 14:02: - Sink; E [place] 00 - [employer] Trash Bin potassium Yes /= 14 Memoria chloride 7-29 Cym[place], l 14:02: march [place] 00 dissolve each 20 mEq tablet in 4 oz of water. Allow about 2 minutes for the tablets to disintegra te. Stir before giving to prepare slurry and administer . Please exclude patient's with feeding tube less than 14 Cym[place] (Dobhoff, J-tube, etc) and pediatric and patients. magnesium No Notes: Memori a sulfate 7-29 WASTE: F/P l 14:02: - Sink; E [place] 00 - [employer] Trash Bin potassium Yes /= 14 Memoria chloride 7-29 C[place], l 14:02: march [place] 00 dissolve each 20 mEq tablet in 4 oz of water. Allow about 2 minutes for the tablets to disintegra te. Stir before giving to prepare slurry and administer . Please exclude patient's with feeding tube less than 14 Cym[place] (Dobhoff, J-tube, etc) and pediatric and patients. magnesium No Notes: Memori a sulfate 7-29 WASTE: F/P l 14:02: - Sink; [place] 00 - [employer] Trash Bin potassium Yes /= 14 Memoria chloride 7-29 [place], l 14:02: march [place] 00 dissolve each 20 mEq tablet in 4 oz of water. Allow about 2 minutes for the tablets to disintegra te. Stir before giving to prepare slurry and administer . Please exclude patient's with feeding tube less than 14 C[place] (Dobhoff, J-tube, etc) and pediatric and patients. magnesium No Notes: Memori a sulfate 7-29 WASTE: F/P l 14:02: - Sink; E [place] 00 - [employer] Trash Bin potassium Yes /= 14 Memoria chloride 7-29 [place], l 14:02: march [place] 00 dissolve each 20 mEq tablet in 4 oz of water. Allow about 2 minutes for the tablets to disintegra te. Stir before giving to prepare slurry and administer . Please exclude patient's with feeding tube less than 14 Cym[place] (Dobhoff, J-tube, etc) and pediatric and patients. magnesium No Notes: Memori a sulfate 7-29 WASTE: F/P l 14:02: - Sink; E [place] 00 - [employer] Trash Bin potassium Yes /= 14 Memoria chloride 7-29 [place], l 14:02: march [place] 00 dissolve each 20 mEq tablet in 4 oz of water. Allow about 2 minutes for the tablets to disintegra te. Stir before giving to prepare slurry and administer . Please exclude patient's with feeding tube less than 14 Cym[place] (Dobhoff, J-tube, etc) and pediatric and patients. magnesium No Notes: Memori a sulfate 7-29 WASTE: F/P l 14:02: - Sink; E [place] 00 - [employer] Trash Bin potassium Yes /= 14 Memoria chloride 7-29 [place], l 14:02: march dissolve each 20 mEq tablet in 4 oz of water. Allow about 2 minutes for the tablets to disintegra te. Stir before giving to prepare slurry and administer . Please exclude patient's with feeding tube less than 14 Cymro (Dobhoff, J-tube, etc) and pediatric and patients. magnesium No Notes: Memori a sulfate 7-29 WASTE: F/P l 14:02: - Sink; E [place] 00 - [employer] Trash Bin potassium Yes /= 14 Memoria chloride 7-29 [place], l 14:02: march dissolve each 20 mEq tablet in 4 oz of water. Allow about 2 minutes for the tablets to disintegra te. Stir before giving to prepare slurry and administer . Please exclude patient's with feeding tube less than 14 C[place] (Dobhoff, J-tube, etc) and pediatric and patients. magnesium No Notes: Memori a sulfate 7-29 WASTE: F/P l 14:02: - Sink; E [place] 00 - [employer] Trash Bin potassium Yes /= 14 Memoria chloride 7-29 [place], l 14:02: march [place] 00 dissolve each 20 mEq tablet in 4 oz of water. Allow about 2 minutes for the tablets to disintegra te. Stir before giving to prepare slurry and administer . Please exclude patient's with feeding tube less than 14 C[place] (Dobhoff, J-tube, etc) and pediatric and patients. magnesium No Notes: Memori a sulfate 7-29 WASTE: F/P l 14:02: - Sink; [place] 00 - [employer] Trash Bin potassium Yes /= 14 Memoria chloride 7-29 [place], l 14:02: march [place] 00 dissolve each 20 mEq tablet in 4 oz of water. Allow about 2 minutes for the tablets to disintegra te. Stir before giving to prepare slurry and administer . Please exclude patient's with feeding tube less than 14 [place] (Dobhoff, J-tube, etc) and pediatric and patients. magnesium No Notes: Memori a sulfate 7-29 WASTE: F/P l 14:02: - Sink; [place] 00 - [employer] Trash Bin potassium Yes /= 14 Memoria chloride 7-29 [place], l 14:02: march 00 dissolve each 20 mEq tablet in 4 oz of water. Allow about 2 minutes for the tablets to disintegra te. Stir before giving to prepare slurry and administer . Please exclude patient's with feeding tube less than 14 C[place] (Dobhoff, J-tube, etc) and pediatric and patients. magnesium No Notes: Memori a sulfate 7-29 WASTE: F/P l 14:02: - Sink; [place] 00 - [employer] Trash Bin potassium Yes /= 14 Memoria chloride 7-29 [place], l 14:02: march dissolve each 20 mEq tablet in 4 oz of water. Allow about 2 minutes for the tablets to disintegra te. Stir before giving to prepare slurry and administer . Please exclude patient's with feeding tube less than 14 C[place] (Dobhoff, J-tube, etc) and pediatric and patients. magnesium No Notes: Memori a sulfate 7-29 WASTE: F/P l 14:02: - Sink; E [place] 00 - [employer] Trash Bin potassium Yes /= 14 Memoria chloride 7-29 [place], l 14:02: march [place] 00 dissolve each 20 mEq tablet in 4 oz of water. Allow about 2 minutes for the tablets to disintegra te. Stir before giving to prepare slurry and administer . Please exclude patient's with feeding tube less than 14 C[place] (Dobhoff, J-tube, etc) and pediatric and patients. magnesium No Notes: Memori a sulfate 7-29 WASTE: F/P l 14:02: - Sink; E [place] 00 - [employer] Trash Bin potassium Yes /= 14 Memoria chloride 7-29 [place], l 14:02: march [place] 00 dissolve each 20 mEq tablet in 4 oz of water. Allow about 2 minutes for the tablets to disintegra te. Stir before giving to prepare slurry and administer . Please exclude patient's with feeding tube less than 14 [place] (Dobhoff, J-tube, etc) and pediatric and patients. magnesium No Notes: Memori a sulfate 7-29 WASTE: F/P l 14:02: - Sink; E [place] 00 - [employer] Trash Bin potassium Yes /= 14 Memoria chloride 7-29 [place], l 14:02: march [place] 00 dissolve each 20 mEq tablet in 4 oz of water. Allow about 2 minutes for the tablets to disintegra te. Stir before giving to prepare slurry and administer . Please exclude patient's with feeding tube less than 14 [place] (Dobhoff, J-tube, etc) and pediatric and patients. magnesium No Notes: Memori a sulfate 7-29 WASTE: F/P l 14:02: - Sink; E [place] 00 - [employer] Trash Bin potassium Yes /= 14 Memoria chloride 7-29 [place], l 14:02: march [place] 00 dissolve each 20 mEq tablet in 4 oz of water. Allow about 2 minutes for the tablets to disintegra te. Stir before giving to prepare slurry and administer . Please exclude patient's with feeding tube less than 14 [place] (Dobhoff, J-tube, etc) and pediatric and patients. magnesium No Notes: Memori a sulfate 7-29 WASTE: F/P l 14:02: - Sink; E [place] 00 - [employer] Trash Bin potassium Yes /= 14 Memoria chloride 7-29 [place], l 14:02: march [place] 00 dissolve each 20 mEq tablet in 4 oz of water. Allow about 2 minutes for the tablets to disintegra te. Stir before giving to prepare slurry and administer . Please exclude patient's with feeding tube less than 14 [place] (Dobhoff, J-tube, etc) and pediatric and patients. magnesium No Notes: Memori a sulfate 7-29 WASTE: F/P l 14:02: - Sink; E [place] 00 - [employer] Tr[employer] Bin potassium Yes /= 14 Memoria chloride 7-29 [place], l 14:02: march [place] 00 dissolve each 20 mEq tablet in 4 oz of water. Allow about 2 minutes for the tablets to disintegra te. Stir before giving to prepare slurry and administer . Please exclude patient's with feeding tube less than 14 [place] (Dobhoff, J-tube, etc) and pediatric and patients. magnesium No Notes: Memori a sulfate 7-29 WASTE: F/P l 14:02: - Sink; E [place] 00 - [employer] Tr[employer] Bin potassium Yes /= 14 Memoria chloride 7-29 [place], l 14:02: march [place] 00 dissolve each 20 mEq tablet in 4 oz of water. Allow about 2 minutes for the tablets to disintegra te. Stir before giving to prepare slurry and administer . Please exclude patient's with feeding tube less than 14 C[place] (Dobhoff, J-tube, etc) and pediatric and patients. magnesium No Notes: Memori a sulfate 7-29 WASTE: F/P l 14:02: - Sink; [place] 00 - [employer] Tr[employer] Bin potassium Yes /= 14 Memoria chloride 7-29 [place], l 14:02: march [place] 00 dissolve each 20 mEq tablet in 4 oz of water. Allow about 2 minutes for the tablets to disintegra te. Stir before giving to prepare slurry and administer . Please exclude patient's with feeding tube less than 14 [place] (Dobhoff, J-tube, etc) and pediatric and patients. magnesium No Notes: Memori a sulfate 7-29 WASTE: F/P l 14:02: - Sink; E [place] 00 - [employer] Tr[employer] Bin potassium Yes /= 14 Memoria chloride 7-29 [place], l 14:02: march [place] 00 dissolve each 20 mEq tablet in 4 oz of water. Allow about 2 minutes for the tablets to disintegra te. Stir before giving to prepare slurry and administer . Please exclude patient's with feeding tube less than 14 C[place] (Dobhoff, J-tube, etc) and pediatric and patients. magnesium No Notes: Memori a sulfate 7-29 WASTE: F/P l 14:02: - Sink; [place] 00 - [employer] Tr[employer] Bin potassium Yes /= 14 Memoria chloride 7-29 [place], l 14:02: march [place] 00 dissolve each 20 mEq tablet in 4 oz of water. Allow about 2 minutes for the tablets to disintegra te. Stir before giving to prepare slurry and administer . Please exclude patient's with feeding tube less than 14 [place] (Dobhoff, J-tube, etc) and pediatric and patients. magnesium No Notes: Memori a sulfate 7-29 WASTE: F/P l 14:02: - Sink; [place] 00 - [employer] Trash Bin potassium Yes /= 14 Memoria chloride 7-29 [place], l 14:02: march dissolve each 20 mEq tablet in 4 oz of water. Allow about 2 minutes for the tablets to disintegra te. Stir before giving to prepare slurry and administer . Please exclude patient's with feeding tube less than 14 [place] (Dobhoff, J-tube, etc) and pediatric and patients. magnesium No Notes: Memori a sulfate 7-29 WASTE: F/P l 14:02: - Sink; [place] 00 - [employer] Tr[employer] Bin potassium Yes /= 14 Memoria chloride 7-29 [place], l 14:02: march dissolve each 20 mEq tablet in 4 oz of water. Allow about 2 minutes for the tablets to disintegra te. Stir before giving to prepare slurry and administer . Please exclude patient's with feeding tube less than 14 [place] (Dobhoff, J-tube, etc) and pediatric and patients. magnesium No Notes: Memori a sulfate 7-29 WASTE: F/P l 14:02: - Sink; [place] 00 - [employer] Tr[employer] Bin potassium Yes /= 14 Memoria chloride 7-29 [place], l 14:02: march [place] 00 dissolve each 20 mEq tablet in 4 oz of water. Allow about 2 minutes for the tablets to disintegra te. Stir before giving to prepare slurry and administer . Please exclude patient's with feeding tube less than 14 [place] (Dobhoff, J-tube, etc) and pediatric and patients. magnesium No Notes: Memori a sulfate 7-29 WASTE: F/P l 14:02: - Sink; [place] 00 - [employer] Tr[employer] Bin potassium Yes /= 14 Memoria chloride 7-29 [place], l 14:02: march dissolve each 20 mEq tablet in 4 oz of water. Allow about 2 minutes for the tablets to disintegra te. Stir before giving to prepare slurry and administer . Please exclude patient's with feeding tube less than 14 [place] (Dobhoff, J-tube, etc) and pediatric and patients. magnesium No Notes: Memori a sulfate 7-29 WASTE: F/P l 14:02: - Sink; [place] 00 - [employer] Tr[employer] Bin potassium Yes /= 14 Memoria chloride 7-29 [place], l 14:02: march dissolve each 20 mEq tablet in 4 oz of water. Allow about 2 minutes for the tablets to disintegra te. Stir before giving to prepare slurry and administer . Please exclude patient's with feeding tube less than 14 [place] (Dobhoff, J-tube, etc) and pediatric and patients. magnesium No Notes: Memori a sulfate 7-29 WASTE: F/P l 14:02: - Sink; [place] 00 - [employer] Tr[employer] Bin potassium Yes /= 14 Memoria chloride 7-29 [place], l 14:02: march dissolve each 20 mEq tablet in 4 oz of water. Allow about 2 minutes for the tablets to disintegra te. Stir before giving to prepare slurry and administer . Please exclude patient's with feeding tube less than 14 [place] (Dobhoff, J-tube, etc) and pediatric and patients. magnesium No Notes: Memori a sulfate 7-29 WASTE: F/P l 14:02: - Sink; [place] 00 - [employer] Trash Bin potassium Yes /= 14 Memoria chloride 7-29 [place], l 14:02: march dissolve each 20 mEq tablet in 4 oz of water. Allow about 2 minutes for the tablets to disintegra te. Stir before giving to prepare slurry and administer . Please exclude patient's with feeding tube less than 14 [place] (Dobhoff, J-tube, etc) and pediatric and patients. magnesium No Notes: Memori a sulfate 7-29 WASTE: F/P l 14:02: - Sink; [place] 00 - [employer] Tr[employer] Bin potassium Yes /= 14 Memoria chloride 7-29 [place], l 14:02: march dissolve each 20 mEq tablet in 4 oz of water. Allow about 2 minutes for the tablets to disintegra te. Stir before giving to prepare slurry and administer . Please exclude patient's with feeding tube less than 14 [place] (Dobhoff, J-tube, etc) and pediatric and patients. magnesium No Notes: Memori a sulfate 7-29 WASTE: F/P l 14:02: - Sink; E [place] 00 - [employer] Tr[employer] Bin potassium Yes /= 14 Memoria chloride 7-29 [place], l 14:02: march dissolve each 20 mEq tablet in 4 oz of water. Allow about 2 minutes for the tablets to disintegra te. Stir before giving to prepare slurry and administer . Please exclude patient's with feeding tube less than 14 Cym[place] (Dobhoff, J-tube, etc) and pediatric and patients. magnesium No Notes: Memori a sulfate 7-29 WASTE: F/P l 14:02: - Sink; [place] 00 - [employer] Tr[employer] Bin potassium Yes /= 14 Memoria chloride 7-29 [place], l 14:02: march dissolve each 20 mEq tablet in 4 oz of water. Allow about 2 minutes for the tablets to disintegra te. Stir before giving to prepare slurry and administer . Please exclude patient's with feeding tube less than 14 C[place] (Dobhoff, J-tube, etc) and pediatric and patients. magnesium No Notes: Memori a sulfate 7-29 WASTE: F/P l 14:02: - Sink; [place] 00 - [employer] Tr[employer] Bin potassium Yes /= 14 Memoria chloride 7-29 [place], l 14:02: march dissolve each 20 mEq tablet in 4 oz of water. Allow about 2 minutes for the tablets to disintegra te. Stir before giving to prepare slurry and administer . Please exclude patient's with feeding tube less than 14 C[place] (Dobhoff, J-tube, etc) and pediatric and patients. magnesium No Notes: Memori a sulfate 7-29 WASTE: F/P l 14:02: - Sink; E [place] 00 - [employer] Tr[employer] Bin potassium Yes /= 14 Memoria chloride 7-29 [place], l 14:02: march dissolve each 20 mEq tablet in 4 oz of water. Allow about 2 minutes for the tablets to disintegra te. Stir before giving to prepare slurry and administer . Please exclude patient's with feeding tube less than 14 C[place] (Dobhoff, J-tube, etc) and pediatric and patients. magnesium No Notes: Memori a sulfate 7-29 WASTE: F/P l 14:02: - Sink; E [place] 00 - [employer] Tr[employer] Bin potassium Yes /= 14 Memoria chloride 7-29 [place], l 14:02: march dissolve each 20 mEq tablet in 4 oz of water. Allow about 2 minutes for the tablets to disintegra te. Stir before giving to prepare slurry and administer . Please exclude patient's with feeding tube less than 14 C[place] (Dobhoff, J-tube, etc) and pediatric and patients. magnesium No Notes: Memori a sulfate 7-29 WASTE: F/P l 14:02: - Sink; [place] 00 - [employer] Trash Bin potassium Yes /= 14 Memoria chloride 7-29 [place], l 14:02: march dissolve each 20 mEq tablet in 4 oz of water. Allow about 2 minutes for the tablets to disintegra te. Stir before giving to prepare slurry and administer . Please exclude patient's with feeding tube less than 14 [place] (Dobhoff, J-tube, etc) and pediatric and patients. magnesium No Notes: Memori a sulfate 7-29 WASTE: F/P l 14:02: - Sink; [place] 00 - [employer] Trash Bin potassium 0 Yes /= 14 Memoria chloride 7-29 [place], l 14:02: march dissolve each 20 mEq tablet in 4 oz of water. Allow about 2 minutes for the tablets to disintegra te. Stir before giving to prepare slurry and administer . Please exclude patient's with feeding tube less than 14 C[place] (Dobhoff, J-tube, etc) and pediatric and patients. magnesium No Notes: Memori a sulfate 7-29 WASTE: F/P l 14:02: - Sink; E [place] 00 - [employer] Tr[employer] Bin potassium Yes /= 14 Memoria chloride 7-29 [place], l 14:02: march [place] 00 dissolve each 20 mEq tablet in 4 oz of water. Allow about 2 minutes for the tablets to disintegra te. Stir before giving to prepare slurry and administer . Please exclude patient's with feeding tube less than 14 C[place] (Dobhoff, J-tube, etc) and pediatric and patients. magnesium No Notes: Memori a sulfate 7-29 WASTE: F/P l 14:02: - Sink; E [place] 00 - [employer] Trash Bin potassium Yes /= 14 Memoria chloride 7-29 [place], l 14:02: march [place] 00 dissolve each 20 mEq tablet in 4 oz of water. Allow about 2 minutes for the tablets to disintegra te. Stir before giving to prepare slurry and administer . Please exclude patient's with feeding tube less than 14 [place] (Dobhoff, J-tube, etc) and pediatric and patients. magnesium No Notes: Memori a sulfate 7-29 WASTE: F/P l 14:02: - Sink; E [place] 00 - [employer] Tr[employer] Bin potassium Yes /= 14 Memoria chloride 7-29 [place], l 14:02: march dissolve each 20 mEq tablet in 4 oz of water. Allow about 2 minutes for the tablets to disintegra te. Stir before giving to prepare slurry and administer . Please exclude patient's with feeding tube less than 14 [place] (Dobhoff, J-tube, etc) and pediatric and patients. magnesium No Notes: Memori a sulfate 7-29 WASTE: F/P l 14:02: - Sink; E [place] 00 - [employer] Trash Bin potassium Yes /= 14 Memoria chloride 7-29 [place], l 14:02: march [place] 00 dissolve each 20 mEq tablet in 4 oz of water. Allow about 2 minutes for the tablets to disintegra te. Stir before giving to prepare slurry and administer . Please exclude patient's with feeding tube less than 14 [place] (Dobhoff, J-tube, etc) and pediatric and patients. magnesium No Notes: Memori a sulfate 7-29 WASTE: F/P l 14:02: - Sink; E [place] 00 - [employer] Tr[employer] Bin potassium Yes /= 14 Memoria chloride 7-29 [place], l 14:02: march [place] 00 dissolve each 20 mEq tablet in 4 oz of water. Allow about 2 minutes for the tablets to disintegra te. Stir before giving to prepare slurry and administer . Please exclude patient's with feeding tube less than 14 [place] (Dobhoff, J-tube, etc) and pediatric and patients. magnesium No Notes: Memori a sulfate 7-29 WASTE: F/P l 14:02: - Sink; E [place] - [employer] Trash Bin potassium Yes /= 14 Memoria chloride 7-29 Cym[place], l 14:02: march [place] 00 dissolve each 20 mEq tablet in 4 oz of water. Allow about 2 minutes for the tablets to disintegra te. Stir before giving to prepare slurry and administer . Please exclude patient's with feeding tube less than 14 [place] (Dobhoff, J-tube, etc) and pediatric and patients. magnesium No Notes: Memori a sulfate 7-29 WASTE: F/P l 14:02: - Sink; E [place] 00 - [employer] Tr[employer] Bin potassium Yes /= 14 Memoria chloride 7-29 [place], l 14:02: march [place] 00 dissolve each 20 mEq tablet in 4 oz of water. Allow about 2 minutes for the tablets to disintegra te. Stir before giving to prepare slurry and administer . Please exclude patient's with feeding tube less than 14 C[place] (Dobhoff, J-tube, etc) and pediatric and patients. magnesium No Notes: Memori a sulfate 7-29 WASTE: F/P l 14:02: - Sink; E [place] 00 - [employer] Trash Bin potassium Yes /= 14 Memoria chloride 7-29 [place], l 14:02: march [place] 00 dissolve each 20 mEq tablet in 4 oz of water. Allow about 2 minutes for the tablets to disintegra te. Stir before giving to prepare slurry and administer . Please exclude patient's with feeding tube less than 14 [place] (Dobhoff, J-tube, etc) and pediatric and patients. magnesium No Notes: Memori a sulfate 7-29 WASTE: F/P l 14:02: - Sink; [place] - [employer] Tr[employer] Bin potassium 2021-0 Yes /= 14 Memoria chloride 7-29 [place], l 14:02: march dissolve each 20 mEq tablet in 4 oz of water. Allow about 2 minutes for the tablets to disintegra te. Stir before giving to prepare slurry and administer . Please exclude patient's with feeding tube less than 14 C[place] (Dobhoff, J-tube, etc) and pediatric and patients. ipratropium 2021-0 Yes 3 mL, NEB, [facility] -albuterol 7-29 RQ4H, # [facility] (DUO-NEB) 00:00: 540 mL, 0 of 0.5-2.5 (3) 00 Refill(s), Me dicin MG/3ML Pharmacy: e [facility] Pharm[facility] [place], 162.56, cm, 06/13/22 14:35:00 CDT, Height, 80.057, kg, 06/13/22 14:35:00 CDT, Weight Dextrometho 2021-0 Yes 10 mL, PO, [facility] rphan-guaiF - Q6H, PRN [place] [facility] ENesin 00:00: Cough, X of 10-200 00 14 day, # Medicin MG/5ML LIQD 120 mL, 0 e Refill(s), Pharmacy: [facility] Pharm[facility] [place], 162.56, cm, 06/13/22 14:35:00 CDT, Height, 80.057, kg, 06/13/22 14:35:00 CDT, Weight magnesium 2021-0 Yes 400 mg = 1 Ba ylor oxide - tab, PO, [place] (MAG-OX) 00:00: Daily, X of 400 MG 00 30 day, # Medicin tablet 30 tab, 0 e Refill(s), Pharmacy: [facility], 162.56, cm, 06/13/22 14:35:00 CDT, Height, 80.057, kg, 06/13/22 14:35:00 CDT, Weight pantoprazol 2021-0 Yes 40mg Take 40 mg [place] e 7- by mouth [place] (PROTONIX) 00:00: daily. of 40 MG 00 Medicin tablet e ipratropium 2021-0 Yes 3 mL, NEB, [place] -albuterol 7- RQ4H, # [facility] (DUO-NEB) 00:00: 540 mL, 0 of 0.5-2.5 (3) 00 Refill(s), Me dicin MG/3ML Pharmacy: [facility], 162.56, cm, 06/13/22 14:35:00 CDT, Height, 80.057, kg, 06/13/22 14:35:00 CDT, Weight Dextrometho 2-0 Yes 10 mL, PO, [facility] rphan-guaiF 7- Q6H, PRN [place] [facility] ENesin 00:00: Cough, X of 10-200 00 14 day, # Medicin MG/5ML LIQD 120 mL, 0 e Refill(s), Pharmacy: [facility], 162.56, cm, 06/13/22 14:35:00 CDT, Height, 80.057, kg, 06/13/22 14:35:00 CDT, Weight magnesium 2021-0 Yes 400 mg = 1 Ba ylor oxide 06-17 tab, PO, [place] (MAG-OX) 00:00: Daily, X of 400 MG 00 30 day, # Medicin tablet 30 tab, 0 e Refill(s), Pharmacy: [facility], 162.56, cm, 06/13/22 14:35:00 CDT, Height, 80.057, kg, 06/13/22 14:35:00 CDT, Weight pantoprazol 2021-0 Yes 40mg Take 40 mg [facility] e 06-17 by mouth [place] (PROTONIX) 00:00: daily. of 40 MG 00 Medicin tablet e ipratropium 2021-0 Yes 3 mL, NEB, [facility] -albuterol 7- RQ4H, # [facility] (DUO-NEB) 00:00: 540 mL, 0 of 0.5-2.5 (3) 00 Refill(s), Me dicin MG/3ML Pharmacy: [facility], 162.56, cm, 06/13/22 14:35:00 CDT, Height, 80.057, kg, 06/13/22 14:35:00 CDT, Weight Dextrometho 2022-0 Yes 10 mL, PO, [facility] rphan-guaiF 7- Q6H, PRN [place] ENesin 00:00: Cough, X of 10-200 00 14 day, # Medicin MG/5ML LIQD 120 mL, 0 e Refill(s), Pharmacy: [facility], 162.56, cm, 06/13/22 14:35:00 CDT, Height, 80.057, kg, 06/13/22 14:35:00 CDT, Weight magnesium 2021-0 Yes 400 mg = 1 Ba ylor oxide 06-17 tab, PO, [place] (MAG-OX) 00:00: Daily, X of 400 MG 00 30 day, # Medicin tablet 30 tab, 0 e Refill(s), Pharmacy: [facility], 162.56, cm, 06/13/22 14:35:00 CDT, Height, 80.057, kg, 06/13/22 14:35:00 CDT, Weight pantoprazol 2021-0 Yes 40mg Take 40 mg [facility] e 06-17 by mouth [place] (PROTONIX) 00:00: daily. of 40 MG 00 Medicin tablet e ipratropium 2021-0 Yes 3 mL, NEB, [facility] -albuterol 06-17 RQ4H, # [facility] (DUO-NEB) 00:00: 540 mL, 0 of 0.5-2.5 (3) 00 Refill(s), Me dicin MG/3ML Pharmacy: e [facility], 162.56, cm, 06/13/22 14:35:00 CDT, Height, 80.057, kg, 06/13/22 14:35:00 CDT, Weight Dextrometho 2-0 Yes 10 mL, PO, [facility] rphan-guaiF 7-29 Q6H, PRN [place] ENesin 00:00: Cough, X of 10-200 00 14 day, # Medicin MG/5ML LIQD 120 mL, 0 e Refill(s), Pharmacy: [facility], 162.56, cm, 06/13/22 14:35:00 CDT, Height, 80.057, kg, 06/13/22 14:35:00 CDT, Weight magnesium 2022-0 Yes 400 mg = 1 Ba ylor oxide - tab, PO, [place] (MAG-OX) 00:00: Daily, X of 400 MG 00 30 day, # Medicin tablet 30 tab, 0 e Refill(s), Pharmacy: [facility], 162.56, cm, 06/13/22 14:35:00 CDT, Height, 80.057, kg, 06/13/22 14:35:00 CDT, Weight pantoprazol 2021-0 Yes 40mg Take 40 mg [place] e 06-17 by mouth [place] (PROTONIX) 00:00: daily. of 40 MG 00 Medicin tablet e ipratropium 0 Yes 3 mL, NEB, [facility] -albuterol 06-17 RQ4H, # [facility] (DUO-NEB) 00:00: 540 mL, 0 of 0.5-2.5 (3) 00 Refill(s), Me dicin MG/3ML [facility] [facility], 162.56, cm, 06/13/22 14:35:00 CDT, Height, 80.057, kg, 06/13/22 14:35:00 CDT, Weight Aspirin 81 2021-0 Yes 81 mg = 1 Ba [facility] MG tablet - tab, PO, Colleg e 00:00: Daily, # of 00 90 tab, 0 Medicin Refill(s), e Pharmacy: [facility], 162.56, cm, 06/13/22 14:35:00 CDT, Height, 80.057, kg, 06/13/22 14:35:00 CDT, Weight Dextrometho 2021-0 Yes 10 mL, PO, [facility] rphan-guaiF 06-17 Q6H, PRN [place] e[place] ENesin 00:00: Cough, X of 10-200 00 14 day, # Medicin MG/5ML LIQD 120 mL, 0 e Refill(s), Pharmacy: [facility], 162.56, cm, 06/13/22 14:35:00 CDT, Height, 80.057, kg, 06/13/22 14:35:00 CDT, Weight losartan 2021-0 Yes 25mg Take 25 mg [place] mykel (COZAAR) 25 7- by mouth Flores ege MG tablet 00:00: daily. of 00 Medicin e magnesium 2021-0 Yes 400 mg = 1 Ba ylor oxide - tab, PO, [place] (MAG-OX) 00:00: Daily, X of 400 MG 00 30 day, # Medicin tablet 30 tab, 0 e Refill(s), Pharmacy: [facility], 162.56, cm, 06/13/22 14:35:00 CDT, Height, 80.057, kg, 06/13/22 14:35:00 CDT, Weight pantoprazol 2021-0 Yes 40mg Take 40 mg [place] e - by mouth [place] (PROTONIX) 00:00: daily. of 40 MG 00 Medicin tablet e ipratropium 0 Yes 3 mL, NEB, [facility] -albuterol 06-17 RQ4H, # Colleg e (DUO-NEB) 00:00: 540 mL, 0 of 0.5-2.5 (3) 00 Refill(s), Me dicin MG/3ML Pharmacy: e [facility], 162.56, cm, 06/13/22 14:35:00 CDT, Height, 80.057, kg, 06/13/22 14:35:00 CDT, Weight Dextrometho 0 Yes 10 mL, PO, [facility] rphan-guaiF 06-17 Q6H, PRN [place] ENesin 00:00: Cough, X of 10-200 00 14 day, # Medicin MG/5ML LIQD 120 mL, 0 e Refill(s), Pharmacy: [facility], 162.56, cm, 06/13/22 14:35:00 CDT, Height, 80.057, kg, 06/13/22 14:35:00 CDT, Weight losartan 2021-0 Yes 25mg Take 25 mg [place] mykel (COZAAR) 25 - by mouth [place] e[place] MG tablet 00:00: daily. of 00 Medicin e magnesium 2021-0 Yes 400 mg = 1 Ba [facility]lor oxide - tab, PO, [place] (MAG-OX) 00:00: Daily, X of 400 MG 30 day, # Medicin tablet 30 tab, 0 e Refill(s), Pharmacy: [facility] [place], 162.56, cm, 06/13/22 14:35:00 CDT, Height, 80.057, kg, 06/13/22 14:35:00 CDT, Weight pantoprazol Yes 40mg Take 40 mg G[place] e 06-17 by mouth [facility] (PROTONIX) 00:00: daily. of 40 MG 00 Medicin tablet e losartan No 25mg Take 25 mg [facility] (COZAAR) 25 06-17 by mouth Col lege MG tablet 00:00: 00:00 daily. of 00 :00 Medicin e Aspirin 81 No 81 mg = 1 B ayl[facility] MG tablet 06-1711 tab, PO, Colle ge 00:00: 00:00 Daily, # of 00 :00 90 tab, 0 Medicin Refill(s), e Pharmacy: [facility] Pharmacy [place], 162.56, cm, 06/13/22 14:35:00 CDT, Height, 80.057, kg, 06/13/22 14:35:00 CDT, Weight aspirin No Notes: Do Memor ia 7-27 not crush l 14:00: or chew. [place] 00 (Same As: Ecotrin) aspirin No Notes: Do Memor ia 7-27 not crush l 14:00: or chew. [place] 00 (Same As: Ecotrin) aspirin No Notes: Do Memor ia 7-27 not crush l 14:00: or chew. [place] 00 (Same As: Ecotrin) aspirin No Notes: Do Memor ia 7-27 not crush l 14:00: or chew. [place] 00 (Same As: Ecotrin) aspirin No Notes: Do Memor ia 7-27 not crush l 14:00: or chew. [place] 00 (Same As: Ecotrin) aspirin No Notes: Do Memor ia 7-27 not crush l 14:00: or chew. [place] 00 (Same As: Ecotrin) aspirin No Notes: Do Memor ia 7-27 not crush l 14:00: or chew. [place] 00 (Same As: Ecotrin) aspirin No Notes: Do Memor ia 7-27 not crush l 14:00: or chew. [place] (Same As: Ecotrin) aspirin No Notes: Do Memor ia 7-27 not crush l 14:00: or chew. [place] 00 (Same As: Ecotrin) aspirin No Notes: Do Memor ia 7-27 not crush l 14:00: or chew. [place] (Same As: Ecotrin) aspirin No Notes: Do Memor ia 7-27 not crush l 14:00: or chew. [place] (Same As: Ecotrin) aspirin No Notes: Do Memor ia 7-27 not crush l 14:00: or chew. [place] 00 (Same As: Ecotrin) aspirin No Notes: Do Memor ia 7-27 not crush l 14:00: or chew. [place] 00 (Same As: Ecotrin) aspirin No Notes: Do Memor ia 7-27 not crush l 14:00: or chew. [place] (Same As: Ecotrin) aspirin No Notes: Do Memor ia 7-27 not crush l 14:00: or chew. [place] (Same As: Ecotrin) aspirin No Notes: Do Memor ia 7-27 not crush l 14:00: or chew. [place] (Same As: Ecotrin) aspirin No Notes: Do Memor ia 7-27 not crush l 14:00: or chew. [place] (Same As: Ecotrin) aspirin No Notes: Do Memor ia 7-27 not crush l 14:00: or chew. [place] (Same As: Ecotrin) aspirin No Notes: Do Memor ia 7-27 not crush l 14:00: or chew. [place] (Same As: Ecotrin) aspirin No Notes: Do Memor ia 7-27 not crush l 14:00: or chew. [place] 00 (Same As: Ecotrin) aspirin No Notes: Do Memor ia 7-27 not crush l 14:00: or chew. [place] 00 (Same As: Ecotrin) aspirin No Notes: Do Memor ia 7-27 not crush l 14:00: or chew. [place] (Same As: Ecotrin) aspirin No Notes: Do Memor ia 7-27 not crush l 14:00: or chew. [place] 00 (Same As: Ecotrin) aspirin No Notes: Do Memor ia 7-27 not crush l 14:00: or chew. [place] (Same As: Ecotrin) aspirin No Notes: Do Memor ia 7-27 not crush l 14:00: or chew. [place] (Same As: Ecotrin) aspirin No Notes: Do Memor ia 7-27 not crush l 14:00: or chew. [place] 00 (Same As: Ecotrin) aspirin No Notes: Do Memor ia 7-27 not crush l 14:00: or chew. [place] 00 (Same As: Ecotrin) aspirin No Notes: Do Memor ia 7-27 not crush l 14:00: or chew. [place] (Same As: Ecotrin) aspirin No Notes: Do Memor ia 7-27 not crush l 14:00: or chew. [place] 00 (Same As: Ecotrin) aspirin No Notes: [...] 7-27 not crush l 14:00: or chew. [place] (Same As: Ecotrin) aspirin No Notes: Do [...] 7-27 not crush l 14:00: or chew. [place] 00 (Same As: Ecotrin) aspirin No Notes: Do Memor ia 7-27 not crush l 14:00: or chew. [place] (Same As: Ecotrin) aspirin No Notes: Do Memor ia 7-27 not crush l 14:00: or chew. [place] (Same As: Ecotrin) aspirin No Notes: Do Memor ia 7-27 not crush l 14:00: or chew. [place] (Same As: Ecotrin) aspirin No Notes: Do Memor ia 7-27 not crush l 14:00: or chew. [place] (Same As: Ecotrin) aspirin No Notes: Do Memor ia 7-27 not crush l 14:00: or chew. [place] (Same As: Ecotrin) aspirin No Notes: Do Memor ia 7-27 not crush l 14:00: or chew. [place] 00 (Same As: Ecotrin) aspirin No Notes: Do Memor ia 7-27 not crush l 14:00: or chew. [place] 00 (Same As: Ecotrin) aspirin No Notes: Do Memor ia 7-27 not crush l 14:00: or chew. [place] 00 (Same As: Ecotrin) aspirin No Notes: Do Memor ia 7-27 not crush l 14:00: or chew. [place] 00 (Same As: Ecotrin) aspirin No Notes: Do Memor ia 7-27 not crush l 14:00: or chew. [place] (Same As: Ecotrin) aspirin No Notes: Do Memor ia 7-27 not crush l 14:00: or chew. [place] 00 (Same As: Ecotrin) predniSONE 2021-0 No 20 mg, 1 Mem oria 7-27 tab, l 13:00: Route: PO, [place] 00 Drug form: TAB, Daily, Dosing Weight [...] oria 7-27 tab, l 13:00: Route: PO, [place] 00 Drug form: TAB, Daily, Dosing Weight [...] oria 7-27 tab, l 13:00: Route: PO, [place] 00 Drug form: TAB, Daily, Dosing Weight [...] oria 7-27 tab, l 13:00: Route: PO, [place] 00 Drug form: TAB, Daily, Dosing Weight [...] oria 7-27 tab, l 13:00: Route: PO, [place] 00 Drug form: TAB, Daily, Dosing Weight 80.057, kg, Start date: 06/15/22 8:00:00 CDT, Duration: 30 day, Stop date: 07/14/22 8:00:00 CDT, 0 predniSONE 2022-0 No 20 mg, 1 Mem oria 7-27 tab, l 13:00: Route: PO, [place] 00 Drug form: TAB, Daily, Dosing Weight 80.057, kg, Start date: 06/15/22 8:00:00 CDT, Duration: 30 day, Stop date: 07/14/22 8:00:00 CDT, 0 predniSONE 2022-0 No 20 mg, 1 Mem oria 7-27 tab, l 13:00: Route: PO, [place] 00 Drug form: TAB, Daily, Dosing Weight [...] oria 7-27 tab, l 13:00: Route: PO, [place] 00 Drug form: TAB, Daily, Dosing Weight [...] oria 7-27 tab, l 13:00: Route: PO, [place] 00 Drug form: TAB, Daily, Dosing Weight [...] 7-27 tab, l 13:00: Route: PO, [place] Drug form: TAB, Daily, Dosing Weight 80.057, [...] oria 7-27 tab, l 13:00: Route: PO, [place] 00 Drug form: TAB, Daily, Dosing Weight [...] oria 7-27 tab, l 13:00: Route: PO, [place] 00 Drug form: TAB, Daily, Dosing Weight [...] oria 7-27 tab, l 13:00: Route: PO, [place] 00 Drug form: TAB, Daily, Dosing Weight [...] No /= 14 Memoria chloride 20 7-27 [place], l mEq oral 11:31: march [place] tablet, 00 dissolve extended each 20 release mEq tablet (KCL) in 4 oz of water. Allow about 2 minutes for the tablets to disintegra te. Stir before giving to prepare slurry and administer . Please exclude patient's with feeding tube less than 14 C[place] ([place], J-tube, etc) and pediatric and patients. potassium 2022-0 No /= 14 Memoria chloride 20 7-27 [place], l mEq oral 11:31: march [place] tablet, 00 dissolve extended each 20 release mEq tablet (KCL) in 4 oz of water. Allow about 2 minutes for the tablets to disintegra te. Stir before giving to prepare slurry and administer . Please exclude patient's with feeding tube less than 14 [place] (Dobhoff, J-tube, etc) and pediatric and patients. potassium 2022-0 No /= 14 Memoria chloride 20 7-27 [place], l mEq oral 11:31: may [place] tablet, 00 dissolve extended each 20 release mEq tablet (KCL) in 4 oz of water. Allow about 2 minutes for the tablets to disintegra te. Stir before giving to prepare slurry and administer . Please exclude patient's with feeding tube less than 14 [place] (Dob[place], J-tube, etc) and pediatric and patients. potassium 2022-0 No /= 14 Memoria chloride 20 7-27 [place], l mEq oral 11:: march [place] tablet, 00 dissolve extended each 20 release mEq tablet (KCL) in 4 oz of water. Allow about 2 minutes for the tablets to disintegra te. Stir before giving to prepare slurry and administer . Please exclude patient's with feeding tube less than 14 [place] (Dobhoff, J-tube, etc) and pediatric and patients. potassium 2022-0 No /= 14 Memoria chloride 20 7-27 [place], l mEq oral 11:: march [place] tablet, 00 dissolve extended each 20 release mEq tablet (KCL) in 4 oz of water. Allow about 2 minutes for the tablets to disintegra te. Stir before giving to prepare slurry and administer . Please exclude patient's with feeding tube less than 14 [place] (Dobhoff, J-tube, etc) and pediatric and patients. potassium 2021-0 No /= 14 Memoria chloride 20 7-27 [place], l mEq oral 11:: march [place] tablet, 00 dissolve extended each 20 release mEq tablet (KCL) in 4 oz of water. Allow about 2 minutes for the tablets to disintegra te. Stir before giving to prepare slurry and administer . Please exclude patient's with feeding tube less than 14 [place] (Dobhoff, J-tube, etc) and pediatric and patients. potassium 2022-0 No /= 14 Memoria chloride 20 7-27 [place], l mEq oral 11:: march [place] tablet, 00 dissolve extended each 20 release mEq tablet (KCL) in 4 oz of water. Allow about 2 minutes for the tablets to disintegra te. Stir before giving to prepare slurry and administer . Please exclude patient's with feeding tube less than 14 [place] (Dobhoff, J-tube, etc) and pediatric and patients. potassium 2022-0 No /= 14 Memoria chloride 20 7-27 [place], l mEq oral 11:31: march [place] tablet, 00 dissolve extended each 20 release mEq tablet (KCL) in 4 oz of water. Allow about 2 minutes for the tablets to disintegra te. Stir before giving to prepare slurry and administer . Please exclude patient's with feeding tube less than 14 [place] (Dobhoff, J-tube, etc) and pediatric and patients. potassium 2021-0 No /= 14 Memoria chloride 20 7-27 [place], l mEq oral 11:: march [place] tablet, 00 dissolve extended each 20 release mEq tablet (KCL) in 4 oz of water. Allow about 2 minutes for the tablets to disintegra te. Stir before giving to prepare slurry and administer . Please exclude patient's with feeding tube less than 14 [place] (Dobhoff, J-tube, etc) and pediatric and patients. potassium 2021-0 No /= 14 Memoria chloride 20 7-27 [place], l mEq oral 11:31: march [place] tablet, 00 dissolve extended each 20 release mEq tablet (KCL) in 4 oz of water. Allow about 2 minutes for the tablets to disintegra te. Stir before giving to prepare slurry and administer . Please exclude patient's with feeding tube less than 14 [place] (Dobhoff, J-tube, etc) and pediatric and patients. potassium 2021-0 No /= 14 Memoria chloride 20 7-27 [place], l mEq oral 11:: march [place] tablet, 00 dissolve extended each 20 release mEq tablet (KCL) in 4 oz of water. Allow about 2 minutes for the tablets to disintegra te. Stir before giving to prepare slurry and administer . Please exclude patient's with feeding tube less than 14 [place] (Dobhoff, J-tube, etc) and pediatric and patients. potassium 2021-0 No /= 14 Memoria chloride 20 7-27 [place], l mEq oral 11:: march [place] tablet, 00 dissolve extended each 20 release mEq tablet (KCL) in 4 oz of water. Allow about 2 minutes for the tablets to disintegra te. Stir before giving to prepare slurry and administer . Please exclude patient's with feeding tube less than 14 [place] (Dobhoff, J-tube, etc) and pediatric and patients. potassium 202-0 No /= 14 Memoria chloride 20 7-27 [place], l mEq oral 11:: march [place] tablet, 00 dissolve extended each 20 release mEq tablet (KCL) in 4 oz of water. Allow about 2 minutes for the tablets to disintegra te. Stir before giving to prepare slurry and administer . Please exclude patient's with feeding tube less than 14 [place] (Dobhoff, J-tube, etc) and pediatric and patients. potassium 202-0 No /= 14 Memoria chloride 20 7-27 [place], l mEq oral 11:: march [place] tablet, 00 dissolve extended each 20 release mEq tablet (KCL) in 4 oz of water. Allow about 2 minutes for the tablets to disintegra te. Stir before giving to prepare slurry and administer . Please exclude patient's with feeding tube less than 14 [place] ([place], J-tube, etc) and pediatric and patients. potassium 2022-0 No /= 14 Memoria chloride 20 7-27 [place], l mEq oral 11:31: march [place] tablet, 00 dissolve extended each 20 release mEq tablet (KCL) in 4 oz of water. Allow about 2 minutes for the tablets to disintegra te. Stir before giving to prepare slurry and administer . Please exclude patient's with feeding tube less than 14 [place] ([place], J-tube, etc) and pediatric and patients. potassium 202-0 No /= 14 Memoria chloride 20 7-27 [place], l mEq oral 11:: march [place] tablet, 00 dissolve extended each 20 release mEq tablet (KCL) in 4 oz of water. Allow about 2 minutes for the tablets to disintegra te. Stir before giving to prepare slurry and administer . Please exclude patient's with feeding tube less than 14 [place] ([place], J-tube, etc) and pediatric and patients. potassium 202-0 No /= 14 Memoria chloride 20 7-27 [place], l mEq oral 11:: march [place] tablet, 00 dissolve extended each 20 release mEq tablet (KCL) in 4 oz of water. Allow about 2 minutes for the tablets to disintegra te. Stir before giving to prepare slurry and administer . Please exclude patient's with feeding tube less than 14 [place] ([place], J-tube, etc) and pediatric and patients. potassium 2022-0 No /= 14 Memoria chloride 20 7-27 [place], l mEq oral 11:: march [place] tablet, 00 dissolve extended each 20 release mEq tablet (KCL) in 4 oz of water. Allow about 2 minutes for the tablets to disintegra te. Stir before giving to prepare slurry and administer . Please exclude patient's with feeding tube less than 14 [place] ([place], J-tube, etc) and pediatric and patients. potassium 2022-0 No /= 14 Memoria chloride 20 7-27 [place], l mEq oral 11:: march [place] tablet, 00 dissolve extended each 20 release mEq tablet (KCL) in 4 oz of water. Allow about 2 minutes for the tablets to disintegra te. Stir before giving to prepare slurry and administer . Please exclude patient's with feeding tube less than 14 [place] ([place], J-tube, etc) and pediatric and patients. potassium 2021-0 No /= 14 Memoria chloride 20 7-27 [place], l mEq oral 11:: march [place] tablet, 00 dissolve extended each 20 release mEq tablet (KCL) in 4 oz of water. Allow about 2 minutes for the tablets to disintegra te. Stir before giving to prepare slurry and administer . Please exclude patient's with feeding tube less than 14 [place] ([place], J-tube, etc) and pediatric and patients. potassium 2021-0 No /= 14 Memoria chloride 20 7-27 [place], l mEq oral 11:: march [place] tablet, 00 dissolve extended each 20 release mEq tablet (KCL) in 4 oz of water. Allow about 2 minutes for the tablets to disintegra te. Stir before giving to prepare slurry and administer . Please exclude patient's with feeding tube less than 14 [place] ([place], J-tube, etc) and pediatric and patients. potassium 2021-0 No /= 14 Memoria chloride 20 7-27 [place], l mEq oral 11: march [place] tablet, 00 dissolve extended each 20 release mEq tablet (KCL) in 4 oz of water. Allow about 2 minutes for the tablets to disintegra te. Stir before giving to prepare slurry and administer . Please exclude patient's with feeding tube less than 14 [place] (Dobhoff, J-tube, etc) and pediatric and patients. potassium 2021-0 No /= 14 Memoria chloride 20 7-27 [place], l mEq oral 11:: march [place] tablet, 00 dissolve extended each 20 release mEq tablet (KCL) in 4 oz of water. Allow about 2 minutes for the tablets to disintegra te. Stir before giving to prepare slurry and administer . Please exclude patient's with feeding tube less than 14 [place] ([place], J-tube, etc) and pediatric and patients. potassium 2021-0 No /= 14 Memoria chloride 20 7-27 [place], l mEq oral 11:: march [place] tablet, 00 dissolve extended each 20 release mEq tablet (KCL) in 4 oz of water. Allow about 2 minutes for the tablets to disintegra te. Stir before giving to prepare slurry and administer . Please exclude patient's with feeding tube less than 14 [place] ([place], J-tube, etc) and pediatric and patients. potassium 2022-0 No /= 14 Memoria chloride 20 7-27 [place], l mEq oral 11:: march [place] tablet, 00 dissolve extended each 20 release mEq tablet (KCL) in 4 oz of water. Allow about 2 minutes for the tablets to disintegra te. Stir before giving to prepare slurry and administer . Please exclude patient's with feeding tube less than 14 [place] ([place], J-tube, etc) and pediatric and patients. potassium 2022-0 No /= 14 Memoria chloride 20 7-27 [place], l mEq oral 11:: march [place] tablet, 00 dissolve extended each 20 release mEq tablet (KCL) in 4 oz of water. Allow about 2 minutes for the tablets to disintegra te. Stir before giving to prepare slurry and administer . Please exclude patient's with feeding tube less than 14 [place] ([place], J-tube, etc) and pediatric and patients. potassium 2022-0 No /= 14 Memoria chloride 20 7-27 [place], l mEq oral 11: march [place] tablet, 00 dissolve extended each 20 release mEq tablet (KCL) in 4 oz of water. Allow about 2 minutes for the tablets to disintegra te. Stir before giving to prepare slurry and administer . Please exclude patient's with feeding tube less than 14 [place] ([place], J-tube, etc) and pediatric and patients. potassium 2022-0 No /= 14 Memoria chloride 20 7-27 [place], l mEq oral 11:: march [place] tablet, 00 dissolve extended each 20 release mEq tablet (KCL) in 4 oz of water. Allow about 2 minutes for the tablets to disintegra te. Stir before giving to prepare slurry and administer . Please exclude patient's with feeding tube less than 14 [place] ([place], J-tube, etc) and pediatric and patients. potassium 2022-0 No /= 14 Memoria chloride 20 7-27 [place], l mEq oral 11:: march [place] tablet, 00 dissolve extended each 20 release mEq tablet (KCL) in 4 oz of water. Allow about 2 minutes for the tablets to disintegra te. Stir before giving to prepare slurry and administer . Please exclude patient's with feeding tube less than 14 [place] (Dob[place], J-tube, etc) and pediatric and patients. potassium 2022-0 No /= 14 Memoria chloride 20 7-27 [place], l mEq oral 11:31: march [place] tablet, 00 dissolve extended each 20 release mEq tablet (KCL) in 4 oz of water. Allow about 2 minutes for the tablets to disintegra te. Stir before giving to prepare slurry and administer . Please exclude patient's with feeding tube less than 14 [place] ([place], J-tube, etc) and pediatric and patients. potassium 202-0 No /= 14 Memoria chloride 20 7-27 [place], l mEq oral 11:: march [place] tablet, 00 dissolve extended each 20 release mEq tablet (KCL) in 4 oz of water. Allow about 2 minutes for the tablets to disintegra te. Stir before giving to prepare slurry and administer . Please exclude patient's with feeding tube less than 14 [place] ([place], J-tube, etc) and pediatric and patients. potassium 2021-0 No /= 14 Memoria chloride 20 7-27 [place], l mEq oral 11:: march [place] tablet, 00 dissolve extended each 20 release mEq tablet (KCL) in 4 oz of water. Allow about 2 minutes for the tablets to disintegra te. Stir before giving to prepare slurry and administer . Please exclude patient's with feeding tube less than 14 [place] ([place], J-tube, etc) and pediatric and patients. potassium 2021-0 No /= 14 Memoria chloride 20 7-27 [place], l mEq oral 11:: march [place] tablet, 00 dissolve extended each 20 release mEq tablet (KCL) in 4 oz of water. Allow about 2 minutes for the tablets to disintegra te. Stir before giving to prepare slurry and administer . Please exclude patient's with feeding tube less than 14 [place] ([place], J-tube, etc) and pediatric and patients. potassium 2022-0 No /= 14 Memoria chloride 20 7-27 [place], l mEq oral 11:31: march [place] tablet, 00 dissolve extended each 20 release mEq tablet (KCL) in 4 oz of water. Allow about 2 minutes for the tablets to disintegra te. Stir before giving to prepare slurry and administer . Please exclude patient's with feeding tube less than 14 [place] ([place], J-tube, etc) and pediatric and patients. potassium 2022-0 No /= 14 Memoria chloride 20 7-27 [place], l mEq oral 11:: march [place] tablet, 00 dissolve extended each 20 release mEq tablet (KCL) in 4 oz of water. Allow about 2 minutes for the tablets to disintegra te. Stir before giving to prepare slurry and administer . Please exclude patient's with feeding tube less than 14 [place] ([place], J-tube, etc) and pediatric and patients. potassium 2022-0 No /= 14 Memoria chloride 20 7-27 [place], l mEq oral 11:: march [place] tablet, 00 dissolve extended each 20 release mEq tablet (KCL) in 4 oz of water. Allow about 2 minutes for the tablets to disintegra te. Stir before giving to prepare slurry and administer . Please exclude patient's with feeding tube less than 14 [place] ([place], J-tube, etc) and pediatric and patients. potassium 202-0 No /= 14 Memoria chloride 20 7-27 Cymro, l mEq oral 11:: march [place] tablet, 00 dissolve extended each 20 release mEq tablet (KCL) in 4 oz of water. Allow about 2 minutes for the tablets to disintegra te. Stir before giving to prepare slurry and administer . Please exclude patient's with feeding tube less than 14 [place] ([place], J-tube, etc) and pediatric and patients. potassium 202-0 No /= 14 Memoria chloride 20 7-27 [place], l mEq oral 11:: march [place] tablet, 00 dissolve extended each 20 release mEq tablet (KCL) in 4 oz of water. Allow about 2 minutes for the tablets to disintegra te. Stir before giving to prepare slurry and administer . Please exclude patient's with feeding tube less than 14 [place] (Dobhoff, J-tube, etc) and pediatric and patients. potassium 2022-0 No /= 14 Memoria chloride 20 7-27 Cym[place], l mEq oral 11:: march [place] tablet, 00 dissolve extended each 20 release mEq tablet (KCL) in 4 oz of water. Allow about 2 minutes for the tablets to disintegra te. Stir before giving to prepare slurry and administer . Please exclude patient's with feeding tube less than 14 [place] ([place], J-tube, etc) and pediatric and patients. potassium 2022-0 No /= 14 Memoria chloride 20 7-27 Cym[place], l mEq oral 11:: march [place] tablet, 00 dissolve extended each 20 release mEq tablet (KCL) in 4 oz of water. Allow about 2 minutes for the tablets to disintegra te. Stir before giving to prepare slurry and administer . Please exclude patient's with feeding tube less than 14 [place] (Dobhoff, J-tube, etc) and pediatric and patients. potassium 202-0 No /= 14 Memoria chloride 20 7-27 Cym[place], l mEq oral 11:: march [place] tablet, 00 dissolve extended each 20 release mEq tablet (KCL) in 4 oz of water. Allow about 2 minutes for the tablets to disintegra te. Stir before giving to prepare slurry and administer . Please exclude patient's with feeding tube less than 14 C[facility] (Dobhoff, J-tube, etc) and pediatric and patients. potassium 2021-0 No /= 14 Memoria chloride 20 7-27 [place], l mEq oral 11: march [place] tablet, 00 dissolve extended each 20 release mEq tablet (KCL) in 4 oz of water. Allow about 2 minutes for the tablets to disintegra te. Stir before giving to prepare slurry and administer . Please exclude patient's with feeding tube less than 14 [facility] (Dobhoff, J-tube, etc) and pediatric and patients. potassium 2021-0 No /= 14 Memoria chloride 20 7-27 C[place], l mEq oral 11:: march [place] tablet, 00 dissolve extended each 20 release mEq tablet (KCL) in 4 oz of water. Allow about 2 minutes for the tablets to disintegra te. Stir before giving to prepare slurry and administer . Please exclude patient's with feeding tube less than 14 [facility] (Dobhoff, J-tube, etc) and pediatric and patients. potassium 2022-0 No /= 14 Memoria chloride 20 7-27 Cym[facility], l mEq oral 11:: march [place] tablet, 00 dissolve extended each 20 release mEq tablet (KCL) in 4 oz of water. Allow about 2 minutes for the tablets to disintegra te. Stir before giving to prepare slurry and administer . Please exclude patient's with feeding tube less than 14 [facility] (Dobhoff, J-tube, etc) and pediatric and patients. potassium 2022-0 No /= 14 Memoria chloride 20 7-27 Cym[place], l mEq oral 11:: march [place] tablet, 00 dissolve extended each 20 release mEq tablet (KCL) in 4 oz of water. Allow about 2 minutes for the tablets to disintegra te. Stir before giving to prepare slurry and administer . Please exclude patient's with feeding tube less than 14 [facility] (Dobhoff, J-tube, etc) and pediatric and patients. potassium 2022-0 No /= 14 Memoria chloride 20 7-27 [place], l mEq oral 11:: march [place] tablet, 00 dissolve extended each 20 release mEq tablet (KCL) in 4 oz of water. Allow about 2 minutes for the tablets to disintegra te. Stir before giving to prepare slurry and administer . Please exclude patient's with feeding tube less than 14 [facility] (Dobhoff, J-tube, etc) and pediatric and patients. potassium 2022-0 No /= 14 Memoria chloride 20 7-27 [place], l mEq oral 11:: march [place] tablet, 00 dissolve extended each 20 release mEq tablet (KCL) in 4 oz of water. Allow about 2 minutes for the tablets to disintegra te. Stir before giving to prepare slurry and administer . Please exclude patient's with feeding tube less than 14 [facility] (Dobhoff, J-tube, etc) and pediatric and patients. potassium 2022-0 No /= 14 Memoria chloride 20 7-27 Cym[place], l mEq oral 11:: march [place] tablet, 00 dissolve extended each 20 release mEq tablet (KCL) in 4 oz of water. Allow about 2 minutes for the tablets to disintegra te. Stir before giving to prepare slurry and administer . Please exclude patient's with feeding tube less than 14 [facility] (Dobhoff, J-tube, etc) and pediatric and patients. potassium 2022-0 No /= 14 Memoria chloride 20 7-27 [place], l mEq oral 11:: march [place] tablet, 00 dissolve extended each 20 release mEq tablet (KCL) in 4 oz of water. Allow about 2 minutes for the tablets to disintegra te. Stir before giving to prepare slurry and administer . Please exclude patient's with feeding tube less than 14 [facility] (Dobhoff, J-tube, etc) and pediatric and patients. potassium 2022-0 No /= 14 Memoria chloride 20 7-27 [place], l mEq oral 11:: march [place] tablet, 00 dissolve extended each 20 release mEq tablet (KCL) in 4 oz of water. Allow about 2 minutes for the tablets to disintegra te. Stir before giving to prepare slurry and administer . Please exclude patient's with feeding tube less than 14 [facility] (Dobhoff, J-tube, etc) and pediatric and patients. potassium 0 No /= 14 Memoria chloride 20 7-27 [place], l mEq oral 11:: march [place] tablet, 00 dissolve extended each 20 release mEq tablet (KCL) in 4 oz of water. Allow about 2 minutes for the tablets to disintegra te. Stir before giving to prepare slurry and administer . Please exclude patient's with feeding tube less than 14 [facility] (Dobhoff, J-tube, etc) and pediatric and patients. potassium No /= 14 Memoria chloride 20 7-27 [place], l mEq oral 11:: march [place] tablet, 00 dissolve extended each 20 release mEq tablet (KCL) in 4 oz of water. Allow about 2 minutes for the tablets to disintegra te. Stir before giving to prepare slurry and administer . Please exclude patient's with feeding tube less than 14 [facility] (Dobhoff, J-tube, etc) and pediatric and patients. potassium 2021-0 No /= 14 Mem[facility] chloride 20 7-27 [place], l mEq oral 11:: march [place] tablet, 00 dissolve extended each 20 release mEq tablet (KCL) in 4 oz of water. Allow about 2 minutes for the tablets to disintegra te. Stir before giving to prepare slurry and administer . Please exclude patient's with feeding tube less than 14 [facility] (Dobhoff, J-tube, etc) and pediatric and patients. potassium 2021-0 No /= 14 Memoria chloride 20 7-27 [place], l mEq oral 11:: march [place] tablet, 00 dissolve extended each 20 release mEq tablet (KCL) in 4 oz of water. Allow about 2 minutes for the tablets to disintegra te. Stir before giving to prepare slurry and administer . Please exclude patient's with feeding tube less than 14 C[facility] (Dobhoff, J-tube, etc) and pediatric and patients. [...] Memoria 7-26 Tablet l 14:00: should not [place] 00 be chewed or crushed. (Same as: [...] clementine 7-26 (Same as: l 14:00: Arimidex) [place] 00 [facility] 1: [facility] [...] Memoria 7-26 Tablet l 14:00: should not [place] 00 be chewed or crushed. (Same as: [...] clementine 7-26 (Same as: l 14:00: Arimidex) [place] [facility] 1: [facility] Hazardous [...] oria 7-26 cap, l 14:00: Route: PO, [place] 00 Drug form: DRC, Daily, Dosing Weight [...] oria 7-26 cap, l 14:00: Route: PO, [place] 00 Drug form: DRC, Daily, Dosing Weight 63.636, kg, Start date: 06/14/22 9:00:00 CDT, Duration: 30 day, Stop date: 07/13/22 9:00:00 CDT Protonix 2021-0 No Notes: Memoria 7-26 Tablet l 14:00: should not [place] 00 be chewed or crushed. (Same as: Protonix) anastrozole No Notes: Sanya clementine 7-26 (Same as: l 14:00: Arimidex) [place] 00 [facility] 1: [facility] Hazardous Drug -- Refer to safe handling procedure PPE Matrix WASTE: F/P - Black; E Yellow omeprazole 2-0 No 20 mg, 1 Mem oria 7-26 cap, l 14:00: Route: PO, [place] 00 Drug form: DRC, Daily, Dosing Weight 63.636, kg, Start date: 06/14/22 9:00:00 CDT, Duration: 30 day, Stop date: 07/13/22 9:00:00 CDT Protonix 2-0 No Notes: Memoria 7-26 Tablet l 14:00: should not [place] 00 be chewed or crushed. (Same as: Protonix) anastrozole 2021-0 No Notes: Sanya clementine 7-26 (Same as: l 14:00: Arimidex) [place] 00 [facility] Group 1: [facility] Hazardous Drug -- Refer to safe handling procedure PPE Matrix WASTE: F/P - Black; E Yellow omeprazole 2-0 No 20 mg, 1 Mem o[facility] 7-26 cap, l 14:00: Route: PO, [place] 00 Drug form: DRC, Daily, Dosing Weight 63.636, kg, Start date: 06/14/22 9:00:00 CDT, Duration: 30 day, Stop date: 07/13/22 9:00:00 CDT Protonix 2022-0 No Notes: [facility] 7-26 Tablet l 14:00: should not [place] 00 be chewed or crushed. (Same as: Protonix) anastrozole 2021-0 No Notes: Sanya clementine 7-26 (Same as: l 14:00: Arimidex) [place] 00 [facility] Group 1: [facility] Hazardous Drug -- Refer to safe handling procedure PPE Matrix WASTE: F/P - Black; E Yellow omeprazole 2022-0 No 20 mg, 1 Mem o[facility] 7-26 cap, l 14:00: Route: PO, [place] 00 Drug form: DRC, Daily, Dosing Weight 63.636, kg, Start date: 06/14/22 9:00:00 CDT, Duration: 30 day, Stop date: 07/13/22 9:00:00 CDT Protonix 2-0 No Notes: Memoria 7-26 Tablet l 14:00: should not [place] 00 be chewed or crushed. (Same as: Protonix) anastrozole No Notes: Sanya clementine 7-26 (Same as: l 14:00: Arimidex) [place] 00 [facility] Group 1: [facility] Hazardous Drug -- Refer to safe handling procedure PPE Matrix WASTE: F/P - Black; E Yellow omeprazole No 20 mg, 1 Mem o[facility] 7-26 cap, l 14:00: Route: PO, [place] 00 Drug form: DRC, Daily, Dosing Weight 63.636, kg, Start date: 06/14/22 9:00:00 CDT, Duration: 30 day, Stop date: 07/13/22 9:00:00 CDT Protonix No Notes: Memoria 7-26 Tablet l 14:00: should not [place] 00 be chewed or crushed. (Same as: [...] Memoria 7-26 Tablet l 14:00: should not [place] 00 be chewed or crushed. (Same as: Protonix) anastrozole No Notes: Sanya clementine 7-26 (Same as: l 14:00: Arimidex) [place] 00 [facility] Group 1: [facility] Hazardous Drug -- Refer to safe handling procedure PPE Matrix WASTE: F/P - Black; E Yellow omeprazole 0 No 20 mg, 1 Mem oria 7-26 cap, l 14:00: Route: PO, [place] 00 Drug form: DRC, Daily, Dosing Weight [...] oria 7-26 cap, l 14:00: Route: PO, [place] 00 Drug form: DRC, Daily, Dosing Weight [...] clementine 7-26 (Same as: l 14:00: Arimidex) [place] 00 [facility] Group 1: [facility] Hazardous Drug -- Refer to safe handling procedure PPE Matrix WASTE: F/P - Black; E Yellow omeprazole 2021-0 No 20 mg, 1 Mem o[facility] 7-26 cap, l 14:00: Route: PO, [place] 00 Drug form: DRC, Daily, Dosing Weight 63.636, kg, Start date: 06/14/22 9:00:00 CDT, Duration: 30 day, Stop date: 07/13/22 9:00:00 CDT Protonix 2021-0 No Notes: Memoria 7-26 Tablet l 14:00: should not [place] 00 be chewed or crushed. (Same as: Protonix) anastrozole 2021-0 No Notes: Sanya clementine 7-26 (Same as: l 14:00: Arimidex) [place] 00 [facility] Group 1: [facility] Hazardous Drug -- Refer to safe handling procedure PPE Matrix WASTE: F/P - Black; E Yellow omeprazole 2-0 No 20 mg, 1 Mem oria 7-26 cap, l 14:00: Route: PO, [place] 00 Drug form: DRC, Daily, Dosing Weight 63.636, kg, Start date: 06/14/22 9:00:00 CDT, Duration: 30 day, Stop date: 07/13/22 9:00:00 CDT Protonix 2-0 No Notes: Memoria 7-26 Tablet l 14:00: should not [place] 00 be chewed or crushed. (Same as: [...] oria 7-26 cap, l 14:00: Route: PO, [place] 00 Drug form: DRC, Daily, Dosing Weight 63.636, kg, Start date: 06/14/22 9:00:00 CDT, Duration: 30 day, Stop date: 07/13/22 9:00:00 CDT Protonix 2021-0 No Notes: Memoria 7-26 Tablet l 14:00: should not [place] 00 be chewed or crushed. (Same as: Protonix) anastrozole No Notes: Sanya clementine 7-26 (Same as: l 14:00: Arimidex) [place] [facility] 1: [facility] Hazardous Drug -- Refer to safe handling procedure PPE Matrix WASTE: F/P - Black; E Yellow omeprazole 2021-0 No 20 mg, 1 Mem o[facility] 7-26 cap, l 14:00: Route: PO, [place] 00 Drug form: DRC, Daily, Dosing Weight [...] oria 7-26 cap, l 14:00: Route: PO, [place] 00 Drug form: DRC, Daily, Dosing Weight 63.636, kg, Start date: 06/14/22 9:00:00 CDT, Duration: 30 day, Stop date: 07/13/22 9:00:00 CDT Protonix 2021-0 No Notes: [facility] 7-26 Tablet l 14:00: should not [place] 00 be chewed or crushed. (Same as: [...] Memoria 7-26 Tablet l 14:00: should not [place] 00 be chewed or crushed. (Same as: [...] Memoria 7-26 Tablet l 14:00: should not [place] 00 be chewed or crushed. (Same as: Protonix) anastrozole No Notes: Sanya clementine 7-26 (Same as: l 14:00: Arimidex) [place] 00 [facility] Group 1: [facility] Hazardous Drug -- Refer to safe handling procedure PPE Matrix WASTE: F/P - Black; E Yellow omeprazole 2021-0 No 20 mg, 1 Mem o[facility] 7-26 cap, l 14:00: Route: PO, [place] 00 Drug form: DRC, Daily, Dosing Weight 63.636, kg, Start date: 06/14/22 9:00:00 CDT, Duration: 30 day, Stop date: 07/13/22 9:00:00 CDT Protonix 2021-0 No Notes: Memoria 7-26 Tablet l 14:00: should not [place] 00 be chewed or crushed. (Same as: Protonix) anastrozole No Notes: Sanya clementine 7-26 (Same as: l 14:00: Arimidex) [place] 00 [facility] Group 1: [facility] Hazardous Drug -- Refer to safe handling procedure PPE Matrix WASTE: F/P - Black; E Yellow omeprazole No 20 mg, 1 Mem oria 7-26 cap, l 14:00: Route: PO, [place] 00 Drug form: DRC, Daily, Dosing Weight 63.636, kg, Start date: 06/14/22 9:00:00 CDT, Duration: 30 day, Stop date: 07/13/22 9:00:00 CDT Protonix 2021-0 No Notes: Memoria 7-26 Tablet l 14:00: should not [place] 00 be chewed or crushed. (Same as: Protonix) anastrozole No Notes: Sanya clementine 7-26 (Same as: l 14:00: Arimidex) [place] 00 [facility] Group 1: [facility] Hazardous Drug -- Refer to safe handling procedure PPE Matrix WASTE: F/P - Black; E Yellow omeprazole No 20 mg, 1 Mem o[facility] 7-26 cap, l 14:00: Route: PO, [place] 00 Drug form: DRC, Daily, Dosing Weight 63.636, kg, Start date: 06/14/22 9:00:00 CDT, Duration: 30 day, Stop date: 07/13/22 9:00:00 CDT Protonix 2021-0 No Notes: Memoria 7-26 Tablet l 14:00: should not [place] 00 be chewed or crushed. (Same as: [...] Memoria 7-26 Tablet l 14:00: should not [place] 00 be chewed or crushed. (Same as: Protonix) anastrozole 2021-0 No Notes: Sanya clementine 7-26 (Same as: l 14:00: Arimidex) [facility] 1: [facility] Hazardous Drug -- Refer to safe handling procedure PPE Matrix WASTE: F/P - Black; E Yellow omeprazole 2-0 No 20 mg, 1 Mem oria 7-26 cap, l 14:00: Route: PO, [place] 00 Drug form: DRC, Daily, Dosing Weight [...] oria 7-26 cap, l 14:00: Route: PO, [place] 00 Drug form: DRC, Daily, Dosing Weight 63.636, kg, Start date: 06/14/22 9:00:00 CDT, Duration: 30 day, Stop date: 07/13/22 9:00:00 CDT Protonix 2022-0 No Notes: Mem[facility] 7-26 Tablet l 14:00: should not [place] 00 be chewed or crushed. (Same as: Protonix) anastrozole No Notes: Sanya clementine 7-26 (Same as: l 14:00: Arimidex) [place] 00 [facility] Drug Group 1: [facility] [...] Memoria 7-26 Tablet l 14:00: should not [place] 00 be chewed or crushed. (Same as: Protonix) anastrozole No Notes: Sanya clementine 7-26 (Same as: l 14:00: Arimidex) [place] [facility] Group 1: [facility] Hazardous Drug -- Refer to safe handling procedure PPE Matrix WASTE: F/P - Black; E Yellow omeprazole No 20 mg, 1 Mem o[facility] 7-26 cap, l 14:00: Route: PO, [place] 00 Drug form: DRC, Daily, Dosing Weight 63.636, kg, Start date: 06/14/22 9:00:00 CDT, Duration: 30 day, Stop date: 07/13/22 9:00:00 CDT Protonix 2021-0 No Notes: Memoria 7-26 Tablet l 14:00: should not [place] 00 be chewed or crushed. (Same as: Protonix) anastrozole No Notes: Sanya clementine 7-26 (Same as: l 14:00: Arimidex) [place] 00 [facility] Drug Group 1: [facility] Hazardous Drug -- Refer to safe handling procedure PPE Matrix WASTE: F/P - Black; E Yellow omeprazole 2021-0 No 20 mg, 1 Mem [facility] 7-26 cap, l 14:00: Route: PO, [place] 00 Drug form: DRC, Daily, Dosing Weight 63.636, kg, Start date: 06/14/22 9:00:00 CDT, Duration: 30 day, Stop date: 07/13/22 9:00:00 CDT Protonix 2021-0 No Notes: Memoria 7-26 Tablet l 14:00: should not [place] 00 be chewed or crushed. (Same as: Protonix) anastrozole No Notes: Sanya clementine 7-26 (Same as: l 14:00: Arimidex) [place] 00 [facility] Drug Group 1: [facility] Hazardous Drug -- Refer to safe handling procedure PPE Matrix WASTE: F/P - Black; E Yellow omeprazole No 20 mg, 1 Mem oria 7-26 cap, l 14:00: Route: PO, [place] 00 Drug form: DRC, Daily, Dosing Weight 63.636, kg, Start date: 06/14/22 9:00:00 CDT, Duration: 30 day, Stop date: 07/13/22 9:00:00 CDT Protonix 2021-0 No Notes: Memoria 7-26 Tablet l 14:00: should not [place] 00 be chewed or crushed. (Same as: Protonix) anastrozole No Notes: Sanya clementine 7-26 (Same as: l 14:00: Arimidex) [place] 00 [facility] Drug Group 1: [facility] Hazardous Drug -- Refer to safe handling procedure PPE Matrix WASTE: F/P - Black; E Yellow omeprazole 2021- No 20 mg, 1 Mem oria 7-26 cap, l 14:00: Route: PO, [place] 00 Drug form: DRC, Daily, Dosing Weight [...] Memoria 7-26 Tablet l 14:00: should not [place] 00 be chewed or crushed. (Same as: Protonix) anastrozole 0 No Notes: Sanya clementine 7-26 (Same as: l 14:00: Arimidex) [place] 00 [facility] Drug Group 1: [facility] Hazardous Drug -- Refer to safe handling procedure PPE Matrix WASTE: F/P - Black; E Yellow omeprazole 2021-0 No 20 mg, 1 Mem oria 7-26 cap, l 14:00: Route: PO, [place] 00 Drug form: DRC, Daily, Dosing Weight 63.636, kg, Start date: 06/14/22 9:00:00 CDT, Duration: 30 day, Stop date: 07/13/22 9:00:00 CDT Protonix 2-0 No Notes: Memoria 7-26 Tablet l 14:00: should not [place] 00 be chewed or crushed. (Same as: [...] oria 7-26 cap, l 14:00: Route: PO, [place] 00 Drug form: DRC, Daily, Dosing Weight 63.636, kg, Start date: 06/14/22 9:00:00 CDT, Duration: 30 day, Stop date: 07/13/22 9:00:00 CDT Protonix 2021-0 No Notes: Memoria 7-26 Tablet l 14:00: should not [place] 00 be chewed or crushed. (Same as: Protonix) anastrozole No Notes: Sanya clementine 7-26 (Same as: l 14:00: Arimidex) [place] 00 Haz[facility]ous Drug Group 1: [facility] [...] Memoria 7-26 Tablet l 14:00: should not [place] 00 be chewed or crushed. (Same as: Protonix) anastrozole 0 No Notes: Sanya clementine 7-26 (Same as: l 14:00: Arimidex) [place] [facility] Group 1: [facility] Hazardous Drug -- Refer to safe handling procedure PPE Matrix WASTE: F/P - Black; E Yellow omeprazole 2021-0 No 20 mg, 1 Mem oria 7-26 cap, l 14:00: Route: PO, [place] 00 Drug form: DRC, Daily, Dosing Weight 63.636, kg, Start date: 06/14/22 9:00:00 CDT, Duration: 30 day, Stop date: 07/13/22 9:00:00 CDT Protonix 2-0 No Notes: Memoria 7-26 Tablet l 14:00: should not [place] 00 be chewed or crushed. (Same as: Protonix) anastrozole 0 No Notes: Sanya clementien 7-26 (Same as: l 14:00: Arimidex) [place] 00 Haz[facility]ous Drug Group 1: [facility] Hazardous Drug -- Refer to safe handling procedure PPE Matrix WASTE: F/P - Black; E Yellow omeprazole 2021-0 No 20 mg, 1 Mem oria 7-26 cap, l 14:00: Route: PO, [place] 00 Drug form: DRC, Daily, Dosing Weight 63.636, kg, Start date: 06/14/22 9:00:00 CDT, Duration: 30 day, Stop date: 07/13/22 9:00:00 CDT Protonix 2-0 No Notes: Memoria 7-26 Tablet l 14:00: should not [place] 00 be chewed or crushed. (Same as: Protonix) anastrozole 2021-0 No Notes: Sanya clementine 7-26 (Same as: l 14:00: Arimidex) [place] [facility] Drug Group 1: [facility] Hazardous [...] clementine 7-26 (Same as: l 14:00: Arimidex) [place] 00 Hazardous Drug Group 1: [facility] stic [...] Memoria 7-26 Tablet l 14:00: should not [place] 00 be chewed or crushed. (Same as: [...] Memoria 7-26 Tablet l 14:00: should not [place] 00 be chewed or crushed. (Same as: Protonix) anastrozole No Notes: Sanya clementine 7-26 (Same as: l 14:00: Arimidex) [place] 00 Hazardous Drug Group 1: [facility] st[facility] [...] Memoria 7-26 Tablet l 14:00: should not [place] 00 be chewed or crushed. (Same as: Protonix) anastrozole 2021-0 No Notes: Sanya clementine 7-26 (Same as: l 14:00: Arimidex) [place] 00 Hazardous Drug Group 1: [facility] st[facility] [...] Memoria 7-26 Tablet l 14:00: should not [place] 00 be chewed or crushed. (Same as: Protonix) anastrozole 0 No Notes: Sanya clementine 7-26 (Same as: l 14:00: Arimidex) [place] 00 [facility] Drug Group 1: [facility] Hazardous Drug -- Refer to safe handling procedure PPE Matrix WASTE: F/P - Black; E Yellow omeprazole 2021-0 No 20 mg, 1 Mem oria 7-26 cap, l 14:00: Route: PO, [place] 00 Drug form: DRC, Daily, Dosing Weight 63.636, kg, Start date: 06/14/22 9:00:00 CDT, Duration: 30 day, Stop date: 07/13/22 9:00:00 CDT Protonix 2021-0 No Notes: Memoria 7-26 Tablet l 14:00: should not [place] 00 be chewed or crushed. (Same as: Protonix) anastrozole No Notes: Sanya clementine 7-26 (Same as: l 14:00: Arimidex) [place] 00 Hazardous Drug Group 1: [facility] st[facility] [...] Memoria 7-26 Tablet l 14:00: should not [place] 00 be chewed or crushed. (Same as: [...] oria 7-26 cap, l 14:00: Route: PO, [place] 00 Drug form: DRC, Daily, Dosing Weight [...] oria 7-26 cap, l 14:00: Route: PO, [place] 00 Drug form: DRC, Daily, Dosing Weight [...] omeprazole No 20 mg, 1 Mem oria 06-14 cap, l 14:00: Route: PO, Drug form: DRC, Daily, Dosing Weight 63.636, kg, Start date: 06/14/22 9:00:00 CDT, Duration: 30 day, Stop date: 07/13/22 9:00:00 CDT Protonix No Notes: Memoria - Tablet l 14:00: should not be chewed or crushed. (Same as: Protonix) atorvastati No Notes: Sanya clementine n 7 (Same as: l 02:00: Lipitor) atorvastati No Notes: Sanya clementine n 7 (Same as: l 02:00: Lipitor) atorvastati No Notes: Sanya clementine n 7 (Same as: l 02:00: Lipitor) atorvastati No Notes: Sanya clementine n 7 (Same as: l 02:00: Lipitor) atorvastati No Notes: Sanya clementine n 7 (Same as: l 02:00: Lipitor) atorvastati No Notes: Sanya clementine n 7 (Same as: l 02:00: Lipitor) atorvastati No Notes: Sanya clementine n 7- (Same as: l 02:00: Lipitor) atorvastati No Notes: Sanya clementine n 7- (Same as: l 02:00: Lipitor) atorvastati No Notes: Sanya clementine n 7- (Same as: l 02:00: Lipitor) atorvastati No Notes: Sanya clementine n 7- (Same as: l 02:00: Lipitor) atorvastati No Notes: Sanya clementine n 7- (Same as: l 02:00: Lipitor) atorvastati No Notes: Sanya clementine n 7 (Same as: l 02:00: Lipitor) [place] 00 atorvastati No Notes: Sanya clementine n 7 (Same as: l 02:00: Lipitor) [place] 00 atorvastati No Notes: Sanya clementine n 7 (Same as: l 02:00: Lipitor) [place] 00 atorvastati No Notes: Sanya clementine n 7 (Same as: l 02:00: Lipitor) [place] 00 atorvastati No Notes: Sanya clementine n 7 (Same as: l 02:00: Lipitor) [place] 00 atorvastati No Notes: Sanya clementine n [...] n 7 (Same as: l 02:00: Lipitor) [place] 00 atorvastati No Notes: Sanya clementine n 7 (Same as: l 02:00: Lipitor) [place] atorvastati No Notes: Sanya clementine n 7 (Same as: l 02:00: Lipitor) [place] 00 atorvastati No Notes: Sanya clementine n 7 (Same as: l 02:00: Lipitor) [place] 00 atorvastati No Notes: Sanya clementine n 7 (Same as: l 02:00: Lipitor) [place] 00 atorvastati No Notes: Sanya clementine n 7 (Same as: l 02:00: Lipitor) [place] atorvastati No Notes: Sanya clementine n 7- (Same as: l 02:00: Lipitor) [place] 00 atorvastati No Notes: Sanya clementine n 7 (Same as: l 02:00: Lipitor) [place] 00 atorvastati No Notes: Sanya clementine n 7 (Same as: l 02:00: Lipitor) [place] 00 atorvastati No Notes: Sanya clementine n 7 (Same as: l 02:00: Lipitor) [place] 00 atorvastati No Notes: Sanya clementine n 7 (Same as: l 02:00: Lipitor) [place] 00 atorvastati No Notes: Sanya clementine n 7 (Same as: l 02:00: Lipitor) [place] 00 atorvastati No Notes: Sanya clementine n 06-14 (Same as: l 02:00: Lipitor) [place] 00 atorvastati No Notes: Sanya clementine n 06-14 (Same as: l 02:00: Lipitor) [place] 00 atorvastati No Notes: Sanya clementine n 7 (Same as: l 02:00: Lipitor) [place] 00 atorvastati No Notes: Sanya clementine n 7 (Same as: l 02:00: Lipitor) [place] 00 atorvastati No Notes: Sanya clementine n 7 (Same as: l 02:00: Lipitor) [place] atorvastati No Notes: Sanya clementine n 7 (Same as: l 02:00: Lipitor) [place] atorvastati No Notes: Sanya clementine n 7 (Same as: l 02:00: Lipitor) [place] atorvastati No Notes: Sanya clementine n 7 (Same as: l 02:00: Lipitor) [place] 00 atorvastati No Notes: Sanya clementine n 7 (Same as: l 02:00: Lipitor) [place] atorvastati No Notes: Sanya clementine n 7 (Same as: l 02:00: Lipitor) [place] atorvastati No Notes: Sanya clementine n 7 (Same as: l 02:00: Lipitor) [place] 00 atorvastati No Notes: Sanya clementine n 7 (Same as: l 02:00: Lipitor) [place] 00 atorvastati No Notes: Sanya clementine n 7 (Same as: l 02:00: Lipitor) [place] 00 atorvastati No Notes: Sanya clementine n 7 (Same as: l 02:00: Lipitor) [place] 00 atorvastati No Notes: Sanya clementine n 7 (Same as: l 02:00: Lipitor) [place] 00 atorvastati No Notes: Sanya clementine n [...] 7- (Same as: l 02:00: Lipitor) [place] docusate No Notes: Memoria 7- (Same as: l 14:00: Colace) [place] 00 (Do Not Crush) Saline No Notes: Memoria Flush 0.9% 06-13 (Same as: l 14:00: BD [place] 00 Posiflush) docusate No Notes: Memoria 7-25 (Same as: l 14:00: Colace) [place] 00 (Do Not Crush) Saline No Notes: Mem[facility] Flush 0.9% 7-25 (Same as: l 14:00: BD [place] 00 Posiflush) docusate No Notes: Memoria 7-25 (Same as: l 14:00: Colace) [place] 00 (Do Not Crush) Saline No Notes: [facility] Flush 0.9% 7-25 (Same as: l 14:00: BD [place] 00 Posiflush) docusate No Notes: Memoria 7-25 (Same as: l 14:00: Colace) [place] 00 (Do Not Crush) Saline No Notes: [facility] Flush 0.9% 7-25 (Same as: l 14:00: BD [place] 00 Posiflush) docusate No Notes: Memoria 7-25 (Same as: l 14:00: Colace) [place] 00 (Do Not Crush) Saline No Notes: [facility] Flush 0.9% 7-25 (Same as: l 14:00: BD [place] 00 Posiflush) docusate No Notes: [facility]oria 7-25 (Same as: l 14:00: Colace) [place] 00 (Do Not Crush) Saline No Notes: [...] 0.9% 7-25 (Same as: l 14:00: BD [place] 00 Posiflush) docusate No Notes: Memoria 7-25 (Same as: l 14:00: Colace) [place] 00 (Do Not Crush) Saline No Notes: [facility] Flush 0.9% 7-25 (Same as: l 14:00: BD [place] 00 Posiflush) docusate No Notes: [facility] 7-25 (Same as: l 14:00: Colace) [place] 00 (Do Not Crush) Saline No Notes: [facility] Flush 0.9% 7-25 (Same as: l 14:00: BD [place] 00 Posiflush) docusate No Notes: [facility]oria 7-25 (Same as: l 14:00: Colace) [place] 00 (Do Not Crush) Saline No Notes: [facility] Flush 0.9% 7-25 (Same as: l 14:00: BD [place] 00 Posiflush) docusate No Notes: [facility] 7-25 (Same as: l 14:00: Colace) [place] 00 (Do Not Crush) Saline No Notes: [facility] Flush 0.9% 7-25 (Same as: l 14:00: BD [place] 00 Posiflush) docusate No Notes: [facility]oria 7-25 (Same as: l 14:00: Colace) [place] 00 (Do Not Crush) Saline No Notes: [facility] Flush 0.9% 7-25 (Same as: l 14:00: BD [place] 00 Posiflush) docusate No Notes: [facility]oria 7-25 (Same as: l 14:00: Colace) [place] 00 (Do Not Crush) Saline No Notes: [facility] Flush 0.9% 7-25 (Same as: l 14:00: BD [place] 00 Posiflush) docusate No Notes: [facility]oria 7-25 (Same as: l 14:00: Colace) [place] 00 (Do Not Crush) Saline No Notes: [facility] Flush 0.9% 7-25 (Same as: l 14:00: BD [place] 00 Posiflush) docusate 2022-0 No Notes: [facility]oria 7-25 (Same as: l 14:00: Colace) [place] 00 (Do Not Crush) Saline No Notes: [facility] Flush 0.9% 7-25 (Same as: l 14:00: BD [place] 00 Posiflush) docusate No Notes: [facility]oria 7-25 (Same as: l 14:00: Colace) [place] 00 (Do Not Crush) Saline No Notes: [facility] Flush 0.9% 7-25 (Same as: l 14:00: BD [place] 00 Posiflush) docusate No Notes: [facility]oria 7-25 (Same as: l 14:00: Colace) [place] 00 (Do Not Crush) Saline No Notes: [facility] Flush 0.9% 7-25 (Same as: l 14:00: BD [place] 00 Posiflush) docusate No Notes: [facility]oria 7-25 (Same as: l 14:00: Colace) [place] 00 (Do Not Crush) Saline No Notes: [facility] Flush 0.9% 7-25 (Same as: l 14:00: BD [place] 00 Posiflush) docusate No Notes: [facility]oria 7-25 (Same as: l 14:00: Colace) [place] 00 (Do Not Crush) Saline No Notes: [facility] Flush 0.9% 7-25 (Same as: l 14:00: BD [place] 00 Posiflush) docusate No Notes: [facility] 7-25 (Same as: l 14:00: Colace) [place] 00 (Do Not Crush) Saline No Notes: [facility] Flush 0.9% 7-25 (Same as: l 14:00: BD [place] 00 Posiflush) docusate No Notes: [facility] 7-25 (Same as: l 14:00: Colace) [place] 00 (Do Not Crush) Saline No Notes: [facility] Flush 0.9% 7-25 (Same as: l 14:00: BD [place] 00 Posiflush) docusate No Notes: [facility]oria 7-25 (Same as: l 14:00: Colace) [place] 00 (Do Not Crush) Saline No Notes: [facility] Flush 0.9% 7-25 (Same as: l 14:00: BD [place] 00 Posiflush) docusate No Notes: Memoria 7-25 (Same as: l 14:00: Colace) [place] 00 (Do Not Crush) Saline No Notes: [facility] Flush 0.9% 7-25 (Same as: l 14:00: BD [place] 00 Posiflush) docusate No Notes: [facility]oria 7-25 (Same as: l 14:00: Colace) [place] 00 (Do Not Crush) Saline No Notes: [facility] Flush 0.9% 7-25 (Same as: l 14:00: BD [place] 00 Posiflush) docusate No Notes: Memoria 7-25 [...] Memoria 7-25 (Same as: l 14:00: Colace) [place] 00 (Do Not Crush) Saline No Notes: [facility] Flush 0.9% 7-25 (Same as: l 14:00: BD [place] 00 Posiflush) docusate No Notes: [facility]oria 7-25 (Same as: l 14:00: Colace) [place] 00 (Do Not Crush) Saline No Notes: [facility] Flush 0.9% 7-25 (Same as: l 14:00: BD [place] 00 Posiflush) docusate No Notes: [facility] 7-25 (Same as: l 14:00: Colace) [place] 00 (Do Not Crush) Saline No Notes: [facility] Flush 0.9% 7-25 (Same as: l 14:00: BD [place] 00 Posiflush) docusate No Notes: [facility]oria 7-25 (Same as: l 14:00: Colace) [place] 00 (Do Not Crush) Saline No Notes: [facility] Flush 0.9% 7-25 (Same as: l 14:00: BD [place] 00 Posiflush) docusate No Notes: [facility]oria 7-25 (Same as: l 14:00: Colace) [place] 00 (Do Not Crush) Saline No Notes: [facility] Flush 0.9% 7-25 (Same as: l 14:00: BD [place] 00 Posiflush) docusate No Notes: Memoria 7-25 (Same as: l 14:00: Colace) [place] 00 (Do Not Crush) Saline No Notes: [facility] Flush 0.9% 7-25 (Same as: l 14:00: BD [place] 00 Posiflush) docusate No Notes: [facility]oria 7-25 (Same as: l 14:00: Colace) [place] 00 (Do Not Crush) Saline No Notes: [facility] Flush 0.9% 7-25 (Same as: l 14:00: BD [place] 00 Posiflush) docusate No Notes: Memoria 7-25 (Same as: l 14:00: Colace) [place] 00 (Do Not Crush) Saline No Notes: [...] Memoria 7-25 (Same as: l 14:00: Colace) [place] 00 (Do Not Crush) Saline No Notes: [facility] Flush 0.9% 7-25 (Same as: l 14:00: BD [place] 00 Posiflush) docusate No Notes: Memoria 7-25 (Same as: l 14:00: Colace) [place] 00 (Do Not Crush) Saline No Notes: [facility] Flush 0.9% 7-25 (Same as: l 14:00: BD [place] 00 Posiflush) docusate No Notes: [facility]oria 7-25 (Same as: l 14:00: Colace) [place] 00 (Do Not Crush) Saline No Notes: [facility] Flush 0.9% 7-25 (Same as: l 14:00: BD [place] 00 Posiflush) docusate No Notes: [facility]oria 7-25 (Same as: l 14:00: Colace) [place] 00 (Do Not Crush) Saline No Notes: [facility] Flush 0.9% 7-25 (Same as: l 14:00: BD [place] 00 Posiflush) docusate No Notes: [facility]oria 7-25 (Same as: l 14:00: Colace) [place] 00 (Do Not Crush) Saline No Notes: [facility] Flush 0.9% 7-25 (Same as: l 14:00: BD [place] 00 Posiflush) docusate No Notes: [facility]oria 7-25 (Same as: l 14:00: Colace) [place] 00 (Do Not Crush) Saline No Notes: [facility] Flush 0.9% 7-25 (Same as: l 14:00: BD [place] 00 Posiflush) docusate No Notes: [facility]oria 7-25 (Same as: l 14:00: Colace) [place] 00 (Do Not Crush) Saline No Notes: [facility] Flush 0.9% 7-25 (Same as: l 14:00: BD [place] 00 Posiflush) docusate No Notes: [facility]oria 7-25 (Same as: l 14:00: Colace) [place] 00 (Do Not Crush) Saline No Notes: [facility] Flush 0.9% 7-25 (Same as: l 14:00: BD [place] 00 Posiflush) docusate No Notes: [facility]oria 7-25 (Same as: l 14:00: Colace) [place] 00 (Do Not Crush) Saline No Notes: [facility] Flush 0.9% 7-25 (Same as: l 14:00: BD [place] 00 Posiflush) docusate No Notes: [facility]oria 7-25 (Same as: l 14:00: Colace) [place] 00 (Do Not Crush) Saline No Notes: [facility] Flush 0.9% 7-25 (Same as: l 14:00: BD [place] 00 Posiflush) docusate No Notes: [facility]oria 7-25 (Same as: l 14:00: Colace) [place] 00 (Do Not Crush) Saline No Notes: [facility] Flush 0.9% 7-25 (Same as: l 14:00: BD [place] 00 Posiflush) docusate No Notes: Memoria 7-25 (Same as: l 14:00: Colace) [place] 00 (Do Not Crush) Saline No Notes: [facility] Flush 0.9% 7-25 (Same as: l 14:00: BD [place] 00 Posiflush) docusate No Notes: [facility]oria 7-25 (Same as: l 14:00: Colace) [place] 00 (Do Not Crush) Saline No Notes: [facility] Flush 0.9% 7-25 (Same as: l 14:00: BD [place] 00 Posiflush) docusate No Notes: Memoria 7-25 (Same as: l 14:00: Colace) [place] 00 (Do Not Crush) Saline No Notes: [facility] Flush 0.9% 7-25 (Same as: l 14:00: BD [place] 00 Posiflush) docusate No Notes: Memoria 7-25 (Same as: l 14:00: Colace) [place] 00 (Do Not Crush) Saline No Notes: [facility] Flush 0.9% 7-25 (Same as: l 14:00: BD [place] 00 Posiflush) docusate No Notes: Memoria 7-25 (Same as: l 14:00: Colace) [place] 00 (Do Not Crush) Saline No Notes: [facility] Flush 0.9% 7-25 (Same as: l 14:00: BD [place] 00 Posiflush) docusate No Notes: Memoria 7-25 (Same as: l 14:00: Colace) [place] 00 (Do Not Crush) Saline No Notes: [facility] Flush 0.9% 7-25 (Same as: l 14:00: BD [place] 00 Posiflush) anastrozole Yes 1 mg = 1 Me moria 1 mg oral 7-25 tab, PO, l tablet 13:59: Daily [place] 00 amLODIPine No 5 mg = 1 Mem oria 5 mg oral 7-25 tab, PO, l tablet 13:59: Daily [place] atorvastati No 40 mg = 1 M emoria n 40 mg 7-25 tab, PO, l oral tablet 13:59: Bedtime Her [place] 00 hydrochloro No 12.5 mg = M emoria thiazide 7-25 1 tab, PO, l 12.5 mg 13:59: Daily [place] oral tablet 00 omeprazole No 20 mg = 1 Me mor[place] 20 mg oral 7-25 cap, PO, l delayed 13:59: Daily [place] release 00 capsule losartan No 100 mg [...] PO, l oral tablet 13:59: Bedtime Her [facility] hydrochloro No 12.5 mg = M emoria thiazide 7-25 1 tab, PO, l 12.5 mg 13:59: Daily [place] oral tablet omeprazole No 20 mg = [...] tab, PO, l oral tablet 13:59: Bedtime [facility] hydrochloro No 12.5 mg = M emoria thiazide 7-25 1 tab, PO, l 12.5 mg 13:59: Daily [place] oral tablet 00 omeprazole No 20 mg = 1 Me [place] 20 mg oral 7-25 cap, PO, l delayed 13:59: Daily [place] release 00 capsule losartan 2022-0 No 100 mg = 1 Mem oria [...] tab, PO, l oral tablet 13:59: Bedtime [facility] hydrochloro No 12.5 mg = [...] PO, l oral tablet 13:59: Bedtime Her [facility] hydrochloro No 12.5 mg = M emoria thiazide 7-25 1 tab, PO, l 12.5 mg 13:59: Daily [place] oral tablet 00 omeprazole No 20 mg [...] PO, l oral tablet 13:59: Bedtime Her [facility] hydrochloro No 12.5 mg = M emoria thiazide 7-25 1 tab, PO, l 12.5 mg 13:59: Daily [place] oral tablet omeprazole No 20 mg = [...] 7-25 cap, PO, l delayed 13:59: Daily [place] release capsule losartan No 100 mg = [...] PO, l oral tablet 13:59: Bedtime Her [facility] hydrochloro No 12.5 mg = M emoria [...] 7-25 tab, PO, l tablet 13:59: Daily [place] 00 rosuvastati Yes 5 mg = 1 Me moria n 5 mg oral 7-25 tab, PO, l tablet 13:59: Bedtime anastrozole Yes 1 mg = 1 Me mor[place] 1 mg oral 7-25 tab, PO, l tablet 13:59: Daily [place] 00 amLODIPine No 5 mg = 1 Mem oria 5 mg oral 7-25 tab, PO, l tablet 13:59: Daily atorvastati No 40 mg = 1 M emoria n 40 mg 7-25 tab, PO, l oral tablet 13:59: Bedtime [facility] [place] hydrochloro No 12.5 mg = M emoria thiazide 7-25 1 tab, PO, l 12.5 mg 13:59: Daily [place] oral tablet omeprazole No 20 mg = [...] 7-25 tab, PO, l tablet 13:59: Daily [place] 00 atorvastati No 40 mg = 1 M emoria n 40 mg 7-25 tab, PO, l oral tablet 13:59: Bedtime [facility] [place] hydrochloro No 12.5 mg = M emoria thiazide 7-25 1 tab, PO, l 12.5 mg 13:59: Daily [place] oral tablet 00 omeprazole No 20 mg = 1 Me [place] 20 mg oral 7-25 cap, PO, l delayed 13:59: Daily [place] release capsule losartan No 100 mg = 1 Mem oria 100 mg oral 7-25 tab, PO, l tablet 13:59: Daily [place] rosuvastati Yes 5 mg = 1 Me [...] PO, l oral tablet 13:59: Bedtime Her [facility] hydrochloro No 12.5 mg = M emoria thiazide 7-25 1 tab, PO, l 12.5 mg 13:59: Daily [place] oral tablet omeprazole No 20 mg = 1 Me [place] 20 mg oral 7-25 cap, PO, l delayed 13:59: Daily [place] capsule losartan No 100 mg = 1 [...] 7-25 tab, PO, l tablet 13:59: Daily [place] 00 atorvastati No 40 mg = 1 M emoria n 40 mg 7-25 tab, PO, l oral tablet 13:59: Bedtime Her [facility] hydrochloro No 12.5 mg = M emoria thiazide 7-25 1 tab, PO, l 12.5 mg 13:59: Daily [place] oral tablet 00 omeprazole No 20 mg = 1 [place] 20 mg oral 7-25 cap, PO, l delayed 13:59: Daily [place] release capsule losartan No 100 mg = [...] tab, PO, l oral tablet 13:59: Bedtime [facility] hydrochloro No 12.5 mg = [...] tab, PO, l oral tablet 13:59: Bedtime [facility] hydrochloro No 12.5 mg = M emoria thiazide 7-25 1 tab, PO, l 12.5 mg 13:59: Daily [place] oral tablet 00 omeprazole No 20 mg [...] tab, PO, l oral tablet 13:59: Bedtime [facility] hydrochloro No 12.5 mg = M emoria thiazide 7-25 1 tab, PO, l 12.5 mg 13:59: Daily [place] oral tablet omeprazole No 20 mg = 1 [place] 20 mg oral 7-25 cap, PO, l delayed 13:59: Daily [place] capsule losartan No 100 mg = 1 [...] tab, PO, l oral tablet 13:59: Bedtime [facility] hydrochloro No 12.5 mg = [...] tab, PO, l oral tablet 13:59: Bedtime [facility] hydrochloro No 12.5 mg = M emoria thiazide 7-25 1 tab, PO, l 12.5 mg 13:59: Daily [place] oral tablet omeprazole No 20 mg = 1 Me [place] 20 mg oral 7-25 cap, PO, l delayed 13:59: Daily [place] release capsule losartan No 100 mg = [...] PO, l oral tablet 13:59: Bedtime Her [facility] hydrochloro No 12.5 mg = M emoria [...] tab, PO, l oral tablet 13:59: Bedtime [facility] hydrochloro No 12.5 mg = [...] 7-25 tab, PO, l tablet 13:59: Daily [place] 00 amLODIPine No 5 mg = 1 Mem oria 5 mg oral 7-25 tab, PO, l tablet 13:59: Daily [place] atorvastati No 40 mg = 1 M emoria n 40 mg 7-25 tab, PO, l oral tablet 13:59: Bedtime [facility] 00 hydrochloro No 12.5 mg = M emoria thiazide 7-25 1 tab, PO, l 12.5 mg 13:59: Daily [place] oral tablet 00 omeprazole No 20 mg = 1 [place] 20 mg oral 7-25 cap, PO, l delayed 13:59: Daily [place] release capsule losartan No 100 mg = 1 Mem oria 100 mg oral 7-25 tab, PO, l tablet 13:59: Daily [place] 00 rosuvastati Yes 5 mg = 1 [...] PO, l oral tablet 13:59: Bedtime Her [facility] hydrochloro No 12.5 mg = M emoria thiazide 7-25 1 tab, PO, l 12.5 mg 13:59: Daily [place] oral tablet omeprazole No 20 mg = 1 Me [place] 20 mg oral 7-25 cap, PO, l delayed 13:59: Daily [place] release capsule losartan No 100 mg = 1 Mem oria 100 mg oral 7-25 tab, PO, l tablet 13:59: Daily [place] 00 rosuvastati Yes 5 mg = 1 Me mor[place] n 5 mg oral 7-25 tab, PO, l tablet 13:59: Bedtime anastrozole Yes 1 mg = 1 Me [place] 1 mg oral 7-25 tab, PO, l tablet 13:59: Daily amLODIPine No 5 mg = 1 Mem oria 5 mg oral 7-25 tab, PO, l tablet 13:59: Daily [place] atorvastati No 40 mg = 1 M [...] PO, l oral tablet 13:59: Bedtime Her [facility] hydrochloro No 12.5 mg = M emoria thiazide 7-25 1 tab, PO, l 12.5 mg 13:59: Daily [place] oral tablet omeprazole No 20 mg = 1 Me [place] 20 mg oral 7-25 cap, PO, l delayed 13:59: Daily [place] release capsule losartan No 100 mg = [...] 7-25 tab, PO, l tablet 13:59: Daily [place] atorvastati No 40 mg = 1 M emoria n 40 mg 7-25 tab, PO, l oral tablet 13:59: Bedtime Her [facility] hydrochloro No 12.5 mg = M emoria thiazide 7-25 1 tab, PO, l 12.5 mg 13:59: Daily [place] oral tablet 00 omeprazole No 20 mg = 1 Me [place] 20 mg oral 7-25 cap, PO, l delayed 13:59: Daily [place] release capsule losartan No 100 mg = 1 Mem oria 100 mg oral 7-25 tab, PO, l tablet 13:59: Daily [place] 00 rosuvastati Yes 5 mg = 1 Me mor[place] n 5 mg oral 7-25 tab, PO, l tablet 13:59: Bedtime anastrozole Yes 1 mg = 1 Me [place] 1 mg oral 7-25 tab, PO, l tablet 13:59: Daily amLODIPine No 5 mg = 1 Mem oria 5 mg oral 7-25 tab, PO, l tablet 13:59: Daily [place] 00 atorvastati No 40 mg = 1 M emoria n 40 mg 7-25 tab, PO, l oral tablet 13:59: Bedtime Her [facility] hydrochloro No 12.5 mg = M emoria thiazide 7-25 1 tab, PO, l 12.5 mg 13:59: Daily [place] oral tablet 00 omeprazole No 20 mg = 1 [place] 20 mg oral 7-25 cap, PO, l delayed 13:59: Daily [place] release capsule losartan No 100 mg = 1 Mem oria 100 mg oral 7-25 tab, PO, l tablet 13:59: Daily [place] 00 rosuvastati Yes 5 mg = 1 Me mor[place] n 5 mg oral 7-25 tab, PO, l tablet 13:59: Bedtime anastrozole Yes 1 mg = 1 Me [place] 1 mg oral 7-25 tab, PO, l tablet 13:59: Daily [place] 00 amLODIPine No 5 mg = 1 Mem oria 5 mg oral 7-25 tab, PO, l tablet 13:59: Daily [place] atorvastati No 40 mg = 1 M emoria n 40 mg 7-25 tab, PO, l oral tablet 13:59: Bedtime Her [facility] hydrochloro No 12.5 mg = M emoria thiazide 7-25 1 tab, PO, l 12.5 mg 13:59: Daily [place] oral tablet 00 omeprazole No 20 mg = 1 Me [place] 20 mg oral 7-25 cap, PO, l delayed 13:59: Daily [place] release capsule losartan No 100 mg = 1 Mem oria 100 mg oral 7-25 tab, PO, l tablet 13:59: Daily [place] 00 rosuvastati Yes 5 mg = 1 [...] PO, l oral tablet 13:59: Bedtime Her [facility] hydrochloro No 12.5 mg = M emoria thiazide 7-25 1 tab, PO, l 12.5 mg 13:59: Daily [place] oral tablet omeprazole No 20 mg = 1 Me [place] 20 mg oral 7-25 cap, PO, l delayed 13:59: Daily [place] release capsule losartan No 100 mg = 1 Mem oria 100 mg oral 7-25 tab, PO, l tablet 13:59: Daily [place] 00 rosuvastati Yes 5 mg = 1 [...] PO, l oral tablet 13:59: Bedtime Her [facility] hydrochloro No 12.5 mg = M emoria thiazide 7-25 1 tab, PO, l 12.5 mg 13:59: Daily [place] oral tablet 00 omeprazole No 20 mg [...] PO, l oral tablet 13:59: Bedtime Her [facility] hydrochloro No 12.5 mg = M emoria [...] PO, l oral tablet 13:59: Bedtime Her [facility] hydrochloro No 12.5 mg = M [place] thiazide 7-25 1 tab, PO, l 12.5 mg 13:59: Daily [place] oral tablet 00 omeprazole No 20 mg [...] PO, l oral tablet 13:59: Bedtime Her [facility] hydrochloro No 12.5 mg = M [place] thiazide 7-25 1 tab, PO, l 12.5 mg 13:59: Daily [place] oral tablet 00 omeprazole No 20 mg = 1 Me [place] 20 mg oral 7-25 cap, PO, l delayed 13:59: Daily [place] release capsule losartan No 100 mg = [...] PO, l oral tablet 13:59: Bedtime Her [facility] 00 hydrochloro No 12.5 mg = M emoria thiazide 7-25 1 tab, PO, l 12.5 mg 13:59: Daily [place] oral tablet omeprazole No 20 mg = 1 Me [place] 20 mg oral 7-25 cap, PO, l delayed 13:59: Daily [place] release 00 capsule losartan No 100 mg [...] PO, l oral tablet 13:59: Bedtime Her [facility] hydrochloro No 12.5 mg = M emoria [...] 7-25 cap, PO, l delayed 13:59: Daily [place] release capsule losartan No 100 mg = [...] PO, l oral tablet 13:59: Bedtime Her [facility] hydrochloro No 12.5 mg = M [place]oria thiazide 7-25 1 tab, PO, l 12.5 mg 13:59: Daily [place] oral tablet omeprazole No 20 mg = [...] PO, l oral tablet 13:59: Bedtime Her [facility] hydrochloro No 12.5 mg = M [place]oria thiazide 7-25 1 tab, PO, l 12.5 mg 13:59: Daily [place] oral tablet 00 omeprazole No 20 mg = 1 Me [place] 20 mg oral 7-25 cap, PO, l delayed 13:59: Daily [place] release capsule losartan No 100 mg = [...] PO, l oral tablet 13:59: Bedtime Her [facility] hydrochloro No 12.5 mg = M [place]oria thiazide 7-25 1 tab, PO, l 12.5 mg 13:59: Daily [place] oral tablet 00 omeprazole No 20 mg = 1 Me [place] 20 mg oral 7-25 cap, PO, l delayed 13:59: Daily [place] release capsule losartan No 100 mg = 1 Mem oria 100 mg oral 7-25 tab, PO, l tablet 13:59: Daily [place] 00 rosuvastati Yes 5 mg = 1 Me moria n 5 mg oral 7-25 tab, PO, l tablet 13:59: Bedtime anastrozole Yes 1 mg = 1 Me mor[place] 1 mg oral 7-25 tab, PO, l tablet 13:59: Daily [place] 00 amLODIPine No 5 mg = 1 Mem oria 5 mg oral 7-25 tab, PO, l tablet 13:59: Daily [place] 00 atorvastati No 40 mg = 1 M emoria n 40 mg 7-25 tab, PO, l oral tablet 13:59: Bedtime [facility] hydrochloro No 12.5 mg = M emoria thiazide 7-25 1 tab, PO, l 12.5 mg 13:59: Daily [place] oral tablet 00 omeprazole No 20 mg = 1 Me moria 20 mg oral 7-25 cap, PO, l delayed 13:59: Daily [place] release capsule losartan No 100 mg = 1 Mem oria 100 mg oral 7-25 tab, PO, l tablet 13:59: Daily [place] 00 rosuvastati Yes 5 mg = 1 Me moria n 5 mg oral 7-25 tab, PO, l tablet 13:59: Bedtime anastrozole Yes 1 mg = 1 Me moria 1 mg oral 7-25 tab, PO, l tablet 13:59: Daily [place] 00 amLODIPine No 5 mg = 1 Mem oria 5 mg oral 7-25 tab, PO, l tablet 13:59: Daily [place] 00 atorvastati No 40 mg = 1 M emoria n 40 mg 7-25 tab, PO, l oral tablet 13:59: Bedtime [facility] hydrochloro No 12.5 mg = M emoria thiazide 7-25 1 tab, PO, l 12.5 mg 13:59: Daily [place] oral tablet 00 omeprazole No 20 mg = 1 Me mor[place] 20 mg oral 7-25 cap, PO, l delayed 13:59: Daily [place] release 00 capsule losartan No 100 mg = 1 Mem oria 100 mg oral 7-25 tab, PO, l tablet 13:59: Daily [place] rosuvastati Yes 5 mg = 1 Me [...] tab, PO, l oral tablet 13:59: Bedtime [facility] hydrochloro No 12.5 mg = M emoria thiazide 7-25 1 tab, PO, l 12.5 mg 13:59: Daily [place] oral tablet omeprazole No 20 mg = 1 Me mor[place] 20 mg oral 7-25 cap, PO, l delayed 13:59: Daily [place] release capsule losartan No 100 mg = [...] tab, PO, l oral tablet 13:59: Bedtime [facility] hydrochloro No 12.5 mg = M emoria thiazide 7-25 1 tab, PO, l 12.5 mg 13:59: Daily [place] oral tablet 00 omeprazole No 20 mg = 1 Me mor[place] 20 mg oral 7-25 cap, PO, l delayed 13:59: Daily [place] release capsule losartan No 100 mg = 1 Mem oria 100 mg oral 7-25 tab, PO, l tablet 13:59: Daily rosuvastati Yes 5 mg = 1 Me moria n 5 mg oral 7-25 tab, PO, l tablet 13:59: Bedtime [place] 00 anastrozole Yes 1 mg = 1 Me moria 1 mg oral 7-25 tab, PO, l tablet 13:59: Daily amLODIPine No 5 mg = 1 Mem oria 5 mg oral 7-25 tab, PO, l tablet 13:59: Daily atorvastati No 40 mg = 1 M emoria n 40 mg 7-25 tab, PO, l oral tablet 13:59: Bedtime Her [facility] hydrochloro No 12.5 mg = M emoria thiazide 7-25 1 tab, PO, l 12.5 mg 13:59: Daily [place] oral tablet omeprazole No 20 mg = 1 Me moria 20 mg oral 7-25 cap, PO, l delayed 13:59: Daily [place] release 00 capsule losartan No 100 mg [...] tab, PO, l oral tablet 13:59: Bedtime [facility] hydrochloro No 12.5 mg = M emoria thiazide 7-25 1 tab, PO, l 12.5 mg 13:59: Daily [place] oral tablet 00 omeprazole No 20 mg = 1 Me mor[place] 20 mg oral 7-25 cap, PO, l delayed 13:59: Daily [place] release 00 capsule losartan No 100 mg [...] PO, l oral tablet 13:59: Bedtime Her [facility] hydrochloro No 12.5 mg = M [place]oria thiazide 7-25 1 tab, PO, l 12.5 mg 13:59: Daily [place] oral tablet 00 omeprazole No 20 mg = 1 Me mor[place] 20 mg oral 7-25 cap, PO, l delayed 13:59: Daily [place] release 00 capsule losartan No 100 mg [...] tab, PO, l oral tablet 13:59: Bedtime [facility] hydrochloro No 12.5 mg = M emoria thiazide 7-25 1 tab, PO, l 12.5 mg 13:59: Daily [place] oral tablet 00 omeprazole No 20 mg = 1 Me [place] 20 mg oral 7-25 cap, PO, l delayed 13:59: Daily [place] release 00 capsule losartan No 100 mg = 1 Mem oria 100 mg oral 7-25 tab, PO, l tablet 13:59: Daily [place] 00 rosuvastati 2022-0 Yes 5 mg = 1 Me moria [...] tab, PO, l 12.5 mg 13:59: Daily [place] oral tablet omeprazole No 20 mg = [...] 7-25 cap, PO, l delayed 13:59: Daily [place] release 00 capsule losartan No 100 mg = 1 Mem oria 100 mg oral 7-25 tab, PO, l tablet 13:59: Daily [place] rosuvastati Yes 5 mg = 1 Me [...] PO, l oral tablet 13:59: Bedtime Her [facility] hydrochloro No 12.5 mg = M [place]oria thiazide 7-25 1 tab, PO, l 12.5 mg 13:59: Daily [place] oral tablet omeprazole No 20 mg = [...] PO, l oral tablet 13:59: Bedtime Her [facility] hydrochloro No 12.5 mg = M [place] thiazide 7-25 1 tab, PO, l 12.5 mg 13:59: Daily [place] oral tablet 00 omeprazole No 20 mg = 1 Me [place] 20 mg oral 7-25 cap, PO, l delayed 13:59: Daily [place] release 00 capsule losartan No 100 mg [...] tab, PO, l 12.5 mg 13:59: Daily [place] oral tablet omeprazole No 20 mg = 1 Me [place] 20 mg oral 7-25 cap, PO, l delayed 13:59: Daily [place] release capsule losartan No 100 mg = [...] 7-25 cap, PO, l delayed 13:59: Daily [place] release 00 capsule losartan No 100 mg [...] 7-25 cap, PO, l delayed 13:59: Daily [place] release 00 capsule losartan No 100 mg = 1 [facility] 100 mg oral 7-25 tab, PO, l tablet 13:59: Daily rosuvastati Yes 5 mg = 1 [facility] n 5 mg oral 7-25 tab, PO, l tablet 13:59: Bedtime furosemide No Notes: [facility] 7-25 (Same [...] 40 mg Product Wasted: ___ mg furosemide 0 No Notes: [facility] 7-25 (Same as: l 13:00: Lasix) [place] 00 MEDICATION WASTE Product Size: 40 mg Product Wasted: ___ mg furosemide 0 No Notes: [facility] 7-25 (Same as: l 13:00: Lasix) [place] 00 MEDICATION WASTE Product Size: 40 mg Product Wasted: ___ mg furosemide 0 No Notes: Memor ia 7-25 (Same as: l 13:00: Lasix) [place] 00 MEDICATION WASTE Product Size: 40 mg Product Wasted: ___ mg furosemide 2022-0 No Notes: [facility] ia 7-25 (Same as: l 13:00: Lasix) [place] 00 MEDICATION WASTE Product Size: 40 mg Product Wasted: ___ mg furosemide 2022-0 No Notes: [facility] 7-25 (Same as: l 13:00: Lasix) [place] 00 MEDICATION WASTE Product Size: 40 mg Product Wasted: ___ mg furosemide 2022-0 No Notes: [facility] ia 7-25 (Same as: l 13:00: Lasix) [place] 00 MEDICATION WASTE Product Size: 40 mg Product Wasted: ___ mg furosemide 2022-0 No Notes: [facility] ia 7-25 (Same as: l 13:00: Lasix) [place] 00 MEDICATION WASTE Product Size: 40 mg Product Wasted: ___ mg furosemide 2022-0 No Notes: [facility] ia 7-25 (Same as: l 13:00: Lasix) [place] 00 MEDICATION WASTE Product Size: 40 mg Product Wasted: ___ mg furosemide 2022-0 No Notes: [facility] 7-25 (Same as: l 13:00: Lasix) [place] 00 MEDICATION WASTE Product Size: 40 mg Product Wasted: ___ mg furosemide 2022-0 No Notes: [facility] 7-25 (Same as: l 13:00: Lasix) [place] 00 MEDICATION WASTE Product Size: 40 mg Product Wasted: ___ mg furosemide 2022-0 No Notes: [facility] 7-25 (Same as: l 13:00: Lasix) [place] 00 MEDICATION WASTE Product Size: 40 mg Product Wasted: ___ mg furosemide 2022-0 No Notes: Mem[facility] ia 7-25 (Same as: l 13:00: Lasix) [place] 00 MEDICATION WASTE Product Size: 40 mg [...] ia 7-25 (Same as: l 13:00: Lasix) [place] 00 MEDICATION WASTE Product Size: 40 mg Product Wasted: ___ mg furosemide 2022-0 No Notes: Mem[facility] ia 7-25 (Same as: l 13:00: Lasix) [place] 00 MEDICATION WASTE Product Size: 40 mg [...] ia 7-25 (Same as: l 13:00: Lasix) [place] 00 MEDICATION WASTE Product Size: 40 mg Product Wasted: ___ mg furosemide 2022-0 No Notes: Mem[facility] ia 7-25 (Same as: l 13:00: Lasix) [place] 00 MEDICATION WASTE Product Size: 40 mg [...] ia 7-25 (Same as: l 13:00: Lasix) [place] 00 MEDICATION WASTE Product Size: 40 mg [...] ia 7-25 (Same as: l 13:00: Lasix) [place] 00 MEDICATION WASTE Product Size: 40 mg Product Wasted: ___ mg furosemide 2022-0 No Notes: [facility] 7-25 (Same as: l 13:00: Lasix) [place] 00 MEDICATION WASTE Product Size: 40 mg Product Wasted: ___ mg furosemide 2022-0 No Notes: [facility] 7-25 (Same as: l 13:00: Lasix) [place] 00 MEDICATION WASTE Product Size: 40 mg Product Wasted: ___ mg furosemide 2022-0 No Notes: [facility] 7-25 (Same as: l 13:00: Lasix) [place] 00 MEDICATION WASTE Product Size: 40 mg Product Wasted: ___ mg furosemide 2022-0 No Notes: [facility] 7-25 (Same as: l 13:00: Lasix) [place] 00 MEDICATION WASTE Product Size: 40 mg Product Wasted: ___ mg furosemide 2022-0 No Notes: [facility] ia 7-25 (Same as: l 13:00: Lasix) [place] 00 MEDICATION WASTE Product Size: 40 mg [...] ia 7-25 (Same as: l 13:00: Lasix) [place] 00 MEDICATION WASTE Product Size: 40 mg Product Wasted: ___ mg furosemide 2022-0 No Notes: [facility] 7-25 (Same as: l 13:00: Lasix) [place] 00 MEDICATION WASTE Product Size: 40 mg Product Wasted: ___ mg furosemide 2021-0 No Notes: [facility] 7-25 (Same as: l 13:00: Lasix) [place] 00 MEDICATION WASTE Product Size: 40 mg Product Wasted: ___ mg furosemide 0 No Notes: [facility] 7-25 (Same as: l 13:00: Lasix) [place] 00 MEDICATION WASTE Product Size: 40 mg Product Wasted: ___ mg furosemide 2021-0 No Notes: [facility] 7-25 (Same as: l 13:00: Lasix) [place] 00 MEDICATION WASTE Product Size: 40 mg Product Wasted: ___ mg furosemide 2021-0 No Notes: [facility] 7-25 (Same as: l 13:00: Lasix) [place] 00 MEDICATION WASTE Product Size: 40 mg Product Wasted: ___ mg furosemide 2021-0 No Notes: [facility] 7-25 (Same as: l 13:00: Lasix) [place] 00 MEDICATION WASTE Product Size: 40 mg Product Wasted: ___ mg albuterol-i No Notes: Sanya clementine pratropium 7-25 (Same as: l 2.5-0.5 mg 12:00: Duoneb) Herm nupur inhalation 00 solution albuterol-i No Notes: Sanya clementine pratropium 7-25 (Same as: l 2.5-0.5 mg 12:00: Duoneb) [place] nupur inhalation 00 solution albuterol-i 0 No Notes: Sanya clementine pratropium 7-25 (Same as: l 2.5-0.5 mg 12:00: Duoneb) [place] nupur inhalation 00 solution albuterol-i 0 No Notes: Sanya clementine pratropium 7-25 (Same as: l 2.5-0.5 mg 12:00: Duoneb) [place] nupur inhalation 00 solution albuterol-i 0 No Notes: Sanya clementine pratropium [...] Duoneb) Herm nupur inhalation 00 solution albuterol-i 2022-0 No Notes: Sanya clementine pratropium [...] n 06-13 not give l 09:00: w/antacids [place] 00 , dairy pdt & minerals Take 1 hr before or 2 hr after dairy pdt (Same as:Levaqui n) levofloxaci No Notes: Do Patricia negrete n 06-13 not give l 09:00: w/antacids [place] 00 , dairy pdt & minerals Take 1 hr before or 2 hr after dairy pdt (Same as:Levaqui n) levofloxaci No Notes: Do Patricia negrete n 06-13 not give l 09:00: w/antacids [place] 00 , dairy pdt & minerals Take 1 hr before or 2 hr after dairy pdt (Same as:Levaqui n) levofloxaci No Notes: Do Patricia negrete n 06-13 not give l 09:00: w/antacids [place] 00 , dairy pdt & minerals Take 1 hr before or 2 hr after dairy pdt (Same as:Levaqui n) levofloxaci No Notes: Do Patricia negrete n 06-13 not give l 09:00: w/antacids [place] 00 , dairy pdt & minerals Take 1 hr before or 2 hr after dairy pdt (Same as:Levaqui n) levofloxaci No Notes: Do Patricia negrete n 06-13 not give l 09:00: w/antacids [place] 00 , dairy pdt & minerals Take 1 hr before or 2 hr after dairy pdt (Same as:Levaqui n) levofloxaci No Notes: Do Patricia negrete n 06-13 not give l 09:00: w/antacids [place] 00 , dairy pdt & minerals Take 1 hr before or 2 hr after dairy pdt (Same as:Levaqui n) levofloxaci No Notes: Do Patricia hellerria n 06-13 not give l 09:00: w/antacids [place] 00 , dairy pdt & minerals Take 1 hr before or 2 hr after dairy pdt (Same as:Levaqui n) levofloxaci No Notes: Do Patricia hellerria n 06-13 not give l 09:00: w/antacids [place] 00 , dairy pdt & minerals Take 1 hr before or 2 hr after dairy pdt (Same as:Levaqui n) levofloxaci No Notes: Do Patricia hellerria n 06-13 not give l 09:00: w/antacids [place] 00 , dairy pdt & minerals Take 1 hr before or 2 hr after dairy pdt (Same as:Levaqui n) levofloxaci No Notes: Do Patricia negrete n 06-13 not give l 09:00: w/antacids [place] 00 , dairy pdt & minerals Take 1 hr before or 2 hr after dairy pdt (Same as:Levaqui n) levofloxaci No Notes: Do Patricia negrete n 06-13 not give l 09:00: w/antacids [place] 00 , dairy pdt & minerals Take 1 hr before or 2 hr after dairy pdt (Same as:Levaqui n) levofloxaci No Notes: Do Patricia negrete n 06-13 not give l 09:00: w/antacids [place] 00 , dairy pdt & minerals Take 1 hr before or 2 hr after dairy pdt (Same as:Levaqui n) levofloxaci No Notes: Do Patricia negrete n 06-13 not give l 09:00: w/antacids [place] 00 , dairy pdt & minerals Take 1 hr before or 2 hr after dairy pdt (Same as:Levaqui n) levofloxaci No Notes: Do Patricia negrete n 06-13 not give l 09:00: w/antacids [place] 00 , dairy pdt & minerals Take 1 hr before or 2 hr after dairy pdt (Same as:Levaqui n) levofloxaci No Notes: Do Patricia negrete n 06-13 not give l 09:00: w/antacids [place] 00 , dairy pdt & minerals Take 1 hr before or 2 hr after dairy pdt (Same as:Levaqui n) levofloxaci No Notes: Do Patricia hellerria n 06-13 not give l 09:00: w/antacids [place] 00 , dairy pdt & minerals Take 1 hr before or 2 hr after dairy pdt (Same as:Levaqui n) levofloxaci No Notes: Do Patricia hellerria n 06-13 not give l 09:00: w/antacids [place] 00 , dairy pdt & minerals Take 1 hr before or 2 hr after dairy pdt (Same as:Levaqui n) levofloxaci No Notes: Do M emoria n 06-13 not give l 09:00: w/antacids [place] 00 , dairy pdt & minerals Take 1 hr before or 2 hr after dairy pdt (Same as:Levaqui n) levofloxaci No Notes: Do M emoria n 06-13 not give l 09:00: w/antacids [place] 00 , dairy pdt & minerals Take 1 hr before or 2 hr after dairy pdt (Same as:Levaqui n) levofloxaci No Notes: Do Patricia emoria n 06-13 not give l 09:00: w/antacids [place] 00 , dairy pdt & minerals Take 1 hr before or 2 hr after dairy pdt (Same as:Levaqui n) levofloxaci No Notes: Do Patricia emoria n 06-13 not give l 09:00: w/antacids [place] 00 , dairy pdt & minerals Take 1 hr before or 2 hr after dairy pdt (Same as:Levaqui n) levofloxaci No Notes: Do Patricia emoria n 06-13 not give l 09:00: w/antacids [place] 00 , dairy pdt & minerals Take 1 hr before or 2 hr after dairy pdt (Same as:Levaqui n) levofloxaci No Notes: Do Patricia emoria n 06-13 not give l 09:00: [...] n 06-13 not give l 09:00: w/antacids [place] 00 , dairy pdt & minerals Take 1 hr before or 2 hr after dairy pdt (Same as:Levaqui n) levofloxaci No Notes: Do Patricia emoria n 06-13 not give l 09:00: w/antacids [place] 00 , dairy pdt & minerals Take 1 hr before or 2 hr after dairy pdt (Same as:Levaqui n) levofloxaci No Notes: Do Patricia negrete n 06-13 not give l 09:00: w/antacids [place] 00 , dairy pdt & minerals Take 1 hr before or 2 hr after dairy pdt (Same as:Levaqui n) levofloxaci No Notes: Do Patricia negrete n 06-13 not give l 09:00: w/antacids [place] 00 , dairy pdt & minerals Take 1 hr before or 2 hr after dairy pdt (Same as:Levaqui n) levofloxaci No Notes: Do Patricia negrete n 06-13 not give l 09:00: w/antacids [place] 00 , dairy pdt & minerals Take 1 hr before or 2 hr after dairy pdt (Same as:Levaqui n) levofloxaci No Notes: Do Patricia negrete n 06-13 not give l 09:00: w/antacids [place] 00 , dairy pdt & minerals Take 1 hr before or 2 hr after dairy pdt (Same as:Levaqui n) levofloxaci No Notes: Do Patricia negrete n 06-13 not give l 09:00: w/antacids [place] 00 , dairy pdt & minerals Take 1 hr before or 2 hr after dairy pdt (Same as:Levaqui n) levofloxaci No Notes: Do Patricia negrete n 06-13 not give l 09:00: w/antacids [place] 00 , dairy pdt & minerals Take 1 hr before or 2 hr after dairy pdt (Same as:Levaqui n) levofloxaci No Notes: Do Patricia hellerria n 06-13 not give l 09:00: w/antacids [place] 00 , dairy pdt & minerals Take 1 hr before or 2 hr after dairy pdt (Same as:Levaqui n) levofloxaci No Notes: Do Patricia negrete n 06-13 not give l 09:00: w/antacids [place] 00 , dairy pdt & minerals Take 1 hr before or 2 hr after dairy pdt (Same as:Levaqui n) levofloxaci No Notes: Do Patricia emoria n 06-13 not give l 09:00: w/antacids [place] 00 , dairy pdt & minerals Take 1 hr before or 2 hr after dairy pdt (Same as:Levaqui n) levofloxaci No Notes: Do Patricia emoria n 06-13 not give l 09:00: w/antacids [place] 00 , dairy pdt & minerals Take 1 hr before or 2 hr after dairy pdt (Same as:Levaqui n) levofloxaci No Notes: Do Patricia hellerria n 06-13 not give l 09:00: w/antacids [place] 00 , dairy pdt & minerals Take 1 hr before or 2 hr after dairy pdt (Same as:Levaqui n) levofloxaci No Notes: Do Patricia hellerria n 06-13 not give l 09:00: w/antacids [place] 00 , dairy pdt & minerals Take 1 hr before or 2 hr after dairy pdt (Same as:Levaqui n) levofloxaci No Notes: Do Patricia hellerria n 06-13 not give l 09:00: w/antacids [place] 00 , dairy pdt & minerals Take 1 hr before or 2 hr after dairy pdt (Same as:Levaqui n) levofloxaci No Notes: Do Patricia hellerria n 06-13 not give l 09:00: w/antacids [place] 00 , dairy pdt & minerals Take 1 hr before or 2 hr after dairy pdt (Same as:Levaqui n) levofloxaci No Notes: Do Patricia hellerria n 06-13 not give l 09:00: w/antacids [place] 00 , dairy pdt & minerals Take 1 hr before or 2 hr after dairy pdt (Same as:Levaqui n) levofloxaci No Notes: Do Patricia hellerria n 06-13 not give l 09:00: w/antacids [place] 00 , dairy pdt & minerals Take 1 hr before or 2 hr after dairy pdt (Same as:Levaqui n) levofloxaci No Notes: Do Patricia hellerria n 06-13 not give l 09:00: [...] (Same as:Levaqui n) levofloxaci No Notes: Do Patricia hellerria n 06-13 not give l 09:00: w/antacids [place] 00 , dairy pdt & minerals Take 1 hr before or 2 hr after dairy pdt (Same as:Levaqui n) levofloxaci No Notes: Do Patricia hellerria n 06-13 not give l 09:00: w/antacids [place] 00 , dairy pdt & minerals Take 1 hr before or 2 hr after dairy pdt (Same as:Levaqui n) levofloxaci No Notes: Do Patricia hellerria n 06-13 not give l 09:00: w/antacids [place] 00 , dairy pdt & minerals Take 1 hr before or 2 hr after dairy pdt (Same as:Levaqui n) levofloxaci No Notes: Do M emoria n 06-13 not give l 09:00: w/antacids [place] 00 , dairy pdt & minerals Take 1 hr before or 2 hr after dairy pdt (Same as:Levaqui n) levofloxaci No Notes: Do M emoria n 06-13 not give l 09:00: w/antacids [place] 00 , dairy pdt & minerals Take [...] 7-25 Take with l 08:41: food. predniSONE 0 No Notes: Memor ia 7-25 Take with l 08:41: food. predniSONE 0 No Notes: Memor ia 7-25 Take with l 08:41: food. predniSONE 0 No Notes: Memor ia 7-25 Take with l 08:41: food. predniSONE 0 No Notes: Memor ia 7-25 Take with l 08:41: food. predniSONE 0 No Notes: Memor ia 7-25 Take with l 08:41: food. predniSONE 0 No Notes: Memor ia 7-25 Take with l 08:41: food. predniSONE 0 No Notes: Memor ia 7-25 Take with l 08:41: food. predniSONE 0 No Notes: Memor ia 7-25 Take with l 08:41: food. predniSONE 0 No Notes: Memor ia 7-25 Take with l 08:41: food. predniSONE 0 No Notes: Memor ia 7-25 Take with [...] 7-25 999 ml/hr, l 07:01: Route: IV, [place] 00 Drug Form: INJ, Dosing Weight 63.636, kg, PRN, PRN Blood Glucose Results, Start date: 06/13/22 2:01:00 CDT, Duration: 30 day, Stop date: 07/13/22 2:00:00 CDT, Infuse over: 0.3 hr, 0 D10W 2022-0 No 250 mL, Memoria (bolus) IV 7-25 999 ml/hr, l 07:01: Route: IV, [place] Drug Form: INJ, Dosing Weight 63.636, kg, PRN, PRN Blood Glucose Results, Start date: 06/13/22 2:01:00 CDT, Duration: 30 day, Stop date: 07/13/22 2:00:00 CDT, Infuse over: 0.3 hr, 0 D10W 2022-0 No 250 mL, Memoria (bolus) IV 7-25 999 ml/hr, l 07:01: Route: IV, [place] 00 Drug Form: INJ, Dosing Weight 63.636, [...] 7-25 999 ml/hr, l 07:01: Route: IV, [place] 00 Drug Form: INJ, Dosing Weight 63.636, [...] 7-25 999 ml/hr, l 07:01: Route: IV, [place] 00 Drug Form: INJ, Dosing Weight 63.636, [...] 7-25 999 ml/hr, l 07:01: Route: IV, [place] Drug Form: INJ, Dosing Weight 63.636, kg, [...] 7-25 999 ml/hr, l 07:01: Route: IV, [place] 00 Drug Form: INJ, Dosing Weight 63.636, kg, PRN, PRN Blood Glucose Results, Start date: 06/13/22 2:01:00 CDT, Duration: 30 day, Stop date: 07/13/22 2:00:00 CDT, Infuse over: 0.3 hr, 0 D10W 2022-0 No 250 mL, Memoria (bolus) IV 7-25 999 ml/hr, l 07:01: Route: IV, [place] 00 Drug Form: INJ, Dosing Weight 63.636, [...] 7-25 999 ml/hr, l 07:01: Route: IV, [place] 00 Drug Form: INJ, Dosing Weight 63.636, [...] Memoria 7-25 (Same as: l 07:00: Lovenox) [place] Lovenox No Notes: Memoria 7-25 (Same as: l 07:00: Lovenox) [place] Lovenox No Notes: Memoria 7-25 (Same as: l 07:00: Lovenox) [place] Lovenox No Notes: Memoria 7-25 (Same as: l 07:00: Lovenox) [place] Lovenox No Notes: Memoria 7-25 (Same as: [...] Memoria 7-25 (Same as: l 07:00: Lovenox) [place] Lovenox 0 No Notes: Memoria 7-25 (Same as: l 07:00: Lovenox) [place] Lovenox No Notes: Memoria 7-25 (Same as: l 07:00: Lovenox) [place] Lovenox 0 No Notes: Memoria 7-25 (Same as: l 07:00: Lovenox) [place] Lovenox 0 No Notes: Memoria 7-25 (Same as: l 07:00: Lovenox) [place] Lovenox 0 No Notes: Memoria 7-25 (Same as: l 07:00: Lovenox) [place] Lovenox 2021-0 No Notes: Memoria 7-25 (Same as: l 07:00: Lovenox) [place] Lovenox 2021-0 No Notes: Memoria 7-25 (Same as: l 07:00: Lovenox) [place] Lovenox 2021-0 No Notes: [facility]oria 7-25 (Same as: l 07:00: Lovenox) [place] Lovenox 2021-0 No Notes: Memoria 7-25 (Same as: l 07:00: Lovenox) [place] Lovenox 2021-0 No Notes: Memoria 7-25 (Same as: l 07:00: Lovenox) [place] Lovenox 2021-0 No Notes: Memoria 7-25 (Same as: l 07:00: Lovenox) [place] Lovenox 2021-0 No Notes: Memoria 7-25 (Same as: l 07:00: Lovenox) [place] Lovenox 2021-0 No Notes: Memoria 7-25 (Same as: l 07:00: Lovenox) [place] Lovenox 2021-0 No Notes: Memoria 7-25 (Same as: l 07:00: Lovenox) [place] Lovenox 2021-0 No Notes: Memoria 7-25 (Same as: l 07:00: Lovenox) [place] Lovenox 2021-0 No Notes: Memoria 7-25 (Same as: l 07:00: Lovenox) [place] Lovenox 2021-0 No Notes: Memoria 7-25 (Same as: l 07:00: Lovenox) [place] Lovenox 2021-0 No Notes: Memoria 7-25 (Same as: l 07:00: Lovenox) [place] Lovenox 2021-0 No Notes: Memoria 7-25 (Same as: l 07:00: Lovenox) [place] Lovenox 2021-0 No Notes: Memoria 7-25 (Same as: l 07:00: Lovenox) [place] Lovenox 2021-0 No Notes: Memoria 7-25 (Same as: l 07:00: Lovenox) [place] Lovenox 2021-0 No Notes: [facility] 7-25 (Same as: l 07:00: Lovenox) [place] Lovenox 2021-0 No Notes: Memoria 7-25 (Same as: l 07:00: Lovenox) [place] Lovenox 2021-0 No Notes: Memoria 7-25 (Same as: l 07:00: Lovenox) [place] Lovenox 2021-0 No Notes: Memoria 7-25 (Same as: l 07:00: Lovenox) [place] Lovenox 2021-0 No Notes: [facility]oria 7-25 (Same as: l 07:00: Lovenox) [place] Lovenox 2021-0 No Notes: Memoria 7-25 (Same as: l 07:00: Lovenox) [place] Lovenox 2021-0 No Notes: Memoria 7-25 (Same as: l 07:00: Lovenox) [place] Lovenox 2021-0 No Notes: [facility] 7-25 (Same as: l 07:00: Lovenox) [place] Lovenox 2021-0 No Notes: Memoria 7-25 (Same as: l 07:00: Lovenox) [place] Lovenox 2021-0 No Notes: [facility] 7-25 (Same as: l 07:00: Lovenox) [place] Lovenox 2021-0 No Notes: [facility]oria 7-25 (Same as: l 07:00: Lovenox) [place] Lovenox 2021-0 No Notes: [facility] 7-25 (Same as: l 07:00: Lovenox) [place] Lovenox 2021-0 No Notes: [facility] 7-25 (Same as: l 07:00: Lovenox) [place] Lovenox 2021-0 No Notes: [facility] 7-25 (Same as: l 07:00: Lovenox) [place] Lovenox 2021-0 No Notes: [facility]oria 7-25 (Same as: l 07:00: Lovenox) [place] Lovenox 2021-0 No Notes: [facility] 7-25 (Same as: l 07:00: Lovenox) [place] Lovenox No Notes: [facility] 7-25 (Same as: l 07:00: Lovenox) [place] Lovenox No Notes: [facility] 7-25 (Same as: l 07:00: Lovenox) [place] Lovenox No Notes: [facility]oria 7-25 (Same as: l 07:00: Lovenox) [place] Lovenox No Notes: [facility] 7-25 (Same as: l 07:00: Lovenox) [place] Lovenox No Notes: [facility] 7-25 (Same as: l 07:00: Lovenox) [place] Lovenox No Notes: [facility] 7-25 (Same as: l 07:00: Lovenox) [place] Lovenox No Notes: [facility] 7-25 (Same as: l 07:00: Lovenox) [place] Saline No Notes: [facility] Flush 0.9% 7-25 (Same as: l 06:53: BD [place] 00 Posiflush) Saline No Notes: [facility] Flush 0.9% 7-25 (Same as: l 06:53: BD [place] 00 Posiflush) Saline No Notes: [facility] Flush 0.9% 7-25 (Same as: l 06:53: BD [place] 00 Posiflush) Saline No Notes: [facility] Flush 0.9% 7-25 (Same as: l 06:53: BD [place] 00 Posiflush) Saline No Notes: [facility] Flush 0.9% 7-25 (Same as: l 06:53: BD [place] 00 Posiflush) Saline No Notes: [facility] Flush 0.9% 7-25 (Same as: l 06:53: BD [place] 00 Posiflush) Saline No Notes: [facility] Flush 0.9% 7-25 (Same as: l 06:53: BD [place] 00 Posiflush) Saline No Notes: [facility] Flush 0.9% 7-25 (Same as: l 06:53: BD [place] 00 Posiflush) Saline No Notes: [facility] Flush 0.9% 7-25 (Same as: l 06:53: BD [place] 00 Posiflush) Saline No Notes: [facility] Flush 0.9% 7-25 (Same as: l 06:53: BD [place] 00 Posiflush) Saline No Notes: [facility] Flush 0.9% 7-25 (Same as: l 06:53: BD [place] 00 Posiflush) Saline No Notes: [facility] Flush 0.9% 7-25 (Same as: l 06:53: BD [place] 00 Posiflush) Saline No Notes: [facility] Flush 0.9% 7-25 (Same as: l 06:53: BD [place] 00 Posiflush) Saline No Notes: [facility] Flush 0.9% 7-25 (Same as: l 06:53: BD [place] 00 Posiflush) Saline No Notes: [facility] Flush 0.9% 7-25 (Same as: l 06:53: BD [place] 00 Posiflush) Saline No Notes: [facility] Flush 0.9% 7-25 (Same as: l 06:53: BD [place] 00 Posiflush) Saline No Notes: [facility] Flush 0.9% 7-25 (Same as: l 06:53: BD [place] 00 Posiflush) Saline No Notes: [facility] Flush 0.9% 7-25 (Same as: l 06:53: BD [place] 00 Posiflush) Saline No Notes: [facility] Flush 0.9% 7-25 (Same as: l 06:53: BD [place] 00 Posiflush) Saline No Notes: [facility] Flush 0.9% 7-25 (Same as: l 06:53: BD [place] 00 Posiflush) Saline No Notes: [facility] Flush 0.9% 7-25 (Same as: l 06:53: BD [place] 00 Posiflush) Saline No Notes: [facility] Flush 0.9% 7-25 (Same as: l 06:53: BD [place] 00 Posiflush) Saline No Notes: [facility] Flush 0.9% 7-25 (Same as: l 06:53: BD [place] 00 Posiflush) Saline No Notes: [facility] Flush 0.9% 7-25 (Same as: l 06:53: BD [place] 00 Posiflush) Saline No Notes: [facility] Flush 0.9% 7-25 (Same as: l 06:53: BD [place] 00 Posiflush) Saline No Notes: [facility] Flush [...] 0.9% 7-25 (Same as: l 06:53: BD [place] 00 Posiflush) Saline No Notes: [facility] Flush 0.9% 7-25 (Same as: l 06:53: BD [place] 00 Posiflush) Saline No Notes: [facility] Flush 0.9% 7-25 (Same as: l 06:53: BD [place] 00 Posiflush) Saline No Notes: [facility] Flush 0.9% 7-25 (Same as: l 06:53: BD [place] 00 Posiflush) Saline No Notes: [facility] Flush 0.9% 7-25 (Same as: l 06:53: BD [place] 00 Posiflush) Saline No Notes: [facility] Flush 0.9% 7-25 (Same as: l 06:53: BD [place] 00 Posiflush) Saline No Notes: [facility] Flush 0.9% 7-25 (Same as: l 06:53: BD [place] 00 Posiflush) Saline No Notes: [facility] Flush 0.9% 7-25 (Same as: l 06:53: BD [place] 00 Posiflush) Saline No Notes: [facility] Flush 0.9% 7-25 (Same as: l 06:53: BD [place] 00 Posiflush) Saline No Notes: [facility] Flush 0.9% 7-25 (Same as: l 06:53: BD [place] 00 Posiflush) Saline No Notes: [facility] Flush 0.9% 7-25 (Same as: l 06:53: BD [place] 00 Posiflush) Saline No Notes: [facility] Flush 0.9% 7-25 (Same as: l 06:53: BD [place] 00 Posiflush) Saline No Notes: [facility] Flush 0.9% 7-25 (Same as: l 06:53: BD [place] 00 Posiflush) Saline No Notes: [facility] Flush 0.9% 7-25 (Same as: l 06:53: BD [place] 00 Posiflush) Saline No Notes: [facility] Flush 0.9% 7-25 (Same as: l 06:53: BD [place] 00 Posiflush) Saline No Notes: [facility] Flush 0.9% 7-25 (Same as: l 06:53: BD [place] 00 Posiflush) Saline No Notes: [facility] Flush 0.9% 7-25 (Same as: l 06:53: BD [place] 00 Posiflush) Saline No Notes: [facility] Flush 0.9% 7-25 (Same as: l 06:53: BD [place] Posiflush) Saline No Notes: [facility] Flush 0.9% 7-25 (Same as: l 06:53: BD [place] Posiflush) Saline No Notes: [facility] Flush 0.9% 7-25 (Same as: l 06:53: BD [place] Posiflush) Saline No Notes: [facility] Flush 0.9% 7-25 (Same as: l 06:53: BD [place] Posiflush) Saline No Notes: [facility] Flush 0.9% 7-25 (Same as: l 06:53: BD [place] Posiflush) Dextrose No 25 mL, [facility] 50% [...] clementine 7-25 (Same as: l 06:51: Apresoline [place] 00 ) Push over 5 minutes Tessalon No Notes: [facility] Perles 7-25 (Same As: l 06:51: Tess[place] 00 Perles) "Do Not Crush" potassium No /= 14 Memoria chloride 7-25 Cymro, l 06:51: may Tomas 00 dissolve each 20 mEq tablet in 4 oz of water. Allow about 2 minutes for the tablets to disintegra te. Stir before giving to prepare slurry and administer . Please exclude patient's with feeding tube less than 14 Cymro (Dobhoff, J-tube, etc) and pediatric and patients. potassium No Notes: Memori a phosphate-s -25 (Same as: l odium 06:51: Phos-NaK) [place] phosphate 00 Each 1.5 250 mg-280 gm pkt has mg-160 mg 250mg oral powder phosphorou for s. Mix reconstitut w/2.5oz ion water and stir. potassium No Notes: Memori a phosphate + 7-25 (Same as: l Sodium 06:51: K [place] Chloride 00 Phosphate. 0.9% IV 250 ) [...] WASTE: F/P l 06:51: - Sink; E [place] - [employer] magnesium No Notes: Memori a oxide -25 (Same as: l 06:51: Mag-Ox 400) Magnesium oxide 172oy=594d g elemental magnesium Dose=____m g magnesium oxide (___mg elemental magnesium) calcium No Notes: Memoria gluconate 25 WASTE: F/P l 06:51: - Sink; E [...] clementine 7-25 (Same as: l 06:51: Apresoline [place] 00 ) Push over 5 minutes Tessalon No Notes: Memoria Perles 7-25 (Same As: l 06:51: Tessalon Tomas 00 Perles) "Do Not Crush" potassium No /= 14 Memoria chloride 7-25 Cymro, l 06:51: march Tomas 00 dissolve each 20 mEq tablet in 4 oz of water. Allow about 2 minutes for the tablets to disintegra te. Stir before giving to prepare slurry and administer . Please exclude patient's with feeding tube less than 14 Cymro (Dobhoff, J-tube, etc) and pediatric and patients. potassium No Notes: Memori a phosphate-s 7-25 (Same as: l odium 06:51: Phos-NaK) [place] phosphate 00 Each 1.5 250 mg-280 gm pkt has mg-160 mg 250mg oral powder phosphorou for s. Mix reconstitut w/2.5oz ion water and stir. potassium No Notes: Memori a phosphate + 7-25 (Same as: l Sodium 06:51: K [place] Chloride 00 Phosphate. 0.9% IV 250 ) [...] l 06:51: - Sink; E Tomas - [facility] Trash Bin magnesium No Notes: Memori a oxide 7-25 (Same as: l 06:51: Mag-Ox 400) Magnesium oxide 212zt=777b g elemental magnesium Dose=____m g magnesium oxide [...] potassium No /= 14 Memoria chloride 7-25 Cym[place], l 06:51: may Tomas dissolve each 20 mEq tablet in 4 oz of water. Allow about 2 minutes for the tablets to disintegra te. Stir before giving to prepare slurry and administer . Please exclude patient's with feeding tube less than 14 Cym[place] (Dobhoff, J-tube, etc) and pediatric and patients. potassium No Notes: Memori a phosphate-s 7-25 (Same as: l odium 06:51: Phos-NaK) Tomas phosphate 00 Each 1.5 250 mg-280 gm pkt has mg-160 mg 250mg oral powder phosphorou for s. Mix reconstitut w/2.5oz ion water and stir. potassium No Notes: Memori a phosphate + 7-25 (Same as: l Sodium 06:51: K [place] Chloride 00 Phosphate. 0.9% IV 250 ) [...] 06:51: Mag-Ox [place] 00 400) Magnesium oxide 424au=863d g elemental magnesium Dose=____m g magnesium oxide [...] Perles 7-25 (Same As: l 06:51: [place] 00 Perles) "Do Not Crush" potassium No /= 14 Memoria chloride 7-25 [place]ym[place], l 06:51: may [place] 00 dissolve each 20 mEq tablet in 4 oz of water. Allow about 2 minutes for the tablets to disintegra te. Stir before giving to prepare slurry and administer . Please exclude patient's with feeding tube less than 14 [place] (Dobhoff, J-tube, etc) and pediatric and patients. potassium No Notes: Memori a phosphate-s 7-25 (Same as: l odium 06:51: Phos-NaK) [place] phosphate 00 Each 1.5 250 mg-280 gm pkt has mg-160 mg 250mg oral powder phosphorou for s. Mix reconstitut w/2.5oz ion water and stir. potassium No Notes: Memori a phosphate + 7-25 (Same as: l Sodium 06:51: K [place] Chloride 00 Phosphate. 0.9% IV 250 ) [...] oxide -25 (Same as: l 06:51: Mag-Ox [place] 00 400) Magnesium oxide 571kq=588x g elemental magnesium Dose=____m g magnesium oxide (___mg elemental magnesium) calcium No Notes: Memoria gluconate 06-13 WASTE: F/P l 06:51: - Sink; E [place] - [facility] Trash Bin calcium No Notes: [...] clementine 06-13 (Same as: l 06:51: Apresoline [place] 00 ) Push over 5 minutes Tessalon No Notes: Memoria Perles 7-25 (Same As: l 06:51: [place] Perles) "Do Not Crush" potassium No /= 14 Memoria chloride 7-25 Cymro, l 06:51: march Tomas 00 dissolve each 20 mEq tablet in 4 oz of water. Allow about 2 minutes for the tablets to disintegra te. Stir before giving to prepare slurry and administer . Please exclude patient's with feeding tube less than 14 [place]ym[place] (Dobhoff, J-tube, etc) and pediatric and patients. potassium No Notes: Memori a phosphate-s 7-25 (Same as: l odium 06:51: Phos-NaK) Tomas phosphate 00 Each 1.5 250 mg-280 gm pkt has mg-160 mg 250mg oral powder phosphorou for s. Mix reconstitut w/2.5oz ion water and stir. potassium No Notes: Memori a phosphate + 7-25 (Same as: l Sodium 06:51: K [place] Chloride 00 Phosphate. 0.9% IV 250 ) [...] 06:51: Mag-Ox [place] 00 400) Magnesium oxide 102cd=325x g elemental magnesium Dose=____m g magnesium oxide (___mg elemental magnesium) calcium No Notes: Memoria gluconate -25 WASTE: F/P l 06:51: - Sink; E [place] - [facility] Trash Bin calcium No Notes: [...] potassium No /= 14 Memoria chloride 7-25 Cym[place], l 06:51: march [place] 00 dissolve each 20 mEq tablet in 4 oz of water. Allow about 2 minutes for the tablets to disintegra te. Stir before giving to prepare slurry and administer . Please exclude patient's with feeding tube less than 14 [place] (Dobhoff, J-tube, etc) and pediatric and patients. potassium No Notes: Memori a phosphate-s 7-25 (Same as: l odium 06:51: Phos-NaK) [place] phosphate 00 Each 1.5 250 mg-280 gm [...] oxide -25 (Same as: l 06:51: Mag-Ox [place] 00 400) Magnesium oxide 945ev=194x g elemental magnesium Dose=____m g magnesium oxide (___mg elemental magnesium) calcium No Notes: Memoria gluconate 06-13 WASTE: F/P l 06:51: - Sink; E [place] [facility] Trash Bin calcium No Notes: [...] potassium No /= 14 Memoria chloride 7-25 Cym[place], l 06:51: march [place] 00 dissolve each 20 mEq tablet in 4 oz of water. Allow about 2 minutes for the tablets to disintegra te. Stir before giving to prepare slurry and administer . Please exclude patient's with feeding tube less than 14 Cym[place] (Dobhoff, J-tube, etc) and pediatric and patients. potassium No Notes: Memori a phosphate-s 7-25 (Same as: l odium 06:51: Phos-NaK) [place] phosphate 00 Each 1.5 250 mg-280 gm [...] WASTE: F/P l 06:51: - Sink; E [place] 00 - [facility] Trash Bin magnesium No Notes: Memori a oxide 7-25 (Same as: l 06:51: Mag-Ox [place] 00 400) Magnesium oxide 891ja=466t g elemental magnesium Dose=____m g magnesium oxide [...] potassium No /= 14 Memoria chloride 7-25 Cymro, l 06:51: march [place] 00 dissolve each 20 mEq tablet in 4 oz of water. Allow about 2 minutes for the tablets to disintegra te. Stir before giving to prepare slurry and administer . Please exclude patient's with feeding tube less than 14 Cym[place] (Dobhoff, J-tube, etc) and pediatric and patients. [...] oxide 7-25 (Same as: l 06:51: Mag-Ox [place] 00 400) Magnesium oxide 242dh=886r g elemental magnesium Dose=____m g magnesium oxide [...] Tylenol) dextrometho No Notes: Sanya clementine rphan-guaiF 25 (dextromet l ENesin 10 06:51: horphan-gu He [...] potassium No /= 14 Memoria chloride 7-25 Cym[place], l 06:51: march dissolve each 20 mEq tablet in 4 oz of water. Allow about 2 minutes for the tablets to disintegra te. Stir before giving to prepare slurry and administer . Please exclude patient's with feeding tube less than 14 Cym[place] (Dobhoff, J-tube, etc) and pediatric and patients. potassium No Notes: Memori a phosphate-s 7-25 (Same as: l odium 06:51: Phos-NaK) [place] phosphate 00 Each 1.5 250 mg-280 gm pkt has mg-160 mg 250mg oral powder phosphorou for s. Mix reconstitut w/2.5oz ion water and stir. potassium No Notes: Memori a phosphate + 7-25 (Same as: l Sodium 06:51: K [place] Chloride 00 Phosphate. 0.9% IV 250 ) [...] oxide -25 (Same as: l 06:51: Mag-Ox [place] 00 400) Magnesium oxide 735zu=774n g elemental magnesium Dose=____m g magnesium oxide (___mg elemental magnesium) calcium No Notes: Memoria gluconate -25 WASTE: F/P l 06:51: - Sink; E [place] 00 - [facility] Trash Bin calcium No [...] potassium No /= 14 Memoria chloride 7-25 Cym[place], l 06:51: may dissolve each 20 mEq tablet in 4 oz of water. Allow about 2 minutes for the tablets to disintegra te. Stir before giving to prepare slurry and administer . Please exclude patient's with feeding tube less than 14 Cym[place] (Dobhoff, J-tube, etc) and pediatric and patients. potassium No Notes: Memori a phosphate-s 7-25 (Same as: l odium 06:51: Phos-NaK) [place] phosphate 00 Each 1.5 250 mg-280 gm [...] oxide 7-25 (Same as: l 06:51: Mag-Ox [place] 00 400) Magnesium oxide 204in=017m g elemental magnesium Dose=____m g magnesium oxide (___mg elemental magnesium) calcium No Notes: Memoria gluconate 7-25 WASTE: F/P l 06:51: - Sink; E [place] [facility] Trash Bin calcium No Notes: [...] ___ mg melatonin No Notes: Memori a 25 (Same as: l 06:51: Melatonin) acetaminoph No Notes: Do M emoria en 06-13 not exceed l 06:51: 4 gm/day. (Same as: Tylenol) dextrometho No Notes: Sanya clementine rphan-guaiF 25 (dextromet l ENesin 10 06:51: horphan-gu He [...] potassium No /= 14 Memoria chloride 7-25 [place]ym[place], l 06:51: march dissolve each 20 mEq tablet in 4 oz of water. Allow about 2 minutes for the tablets to disintegra te. Stir before giving to prepare slurry and administer . Please exclude patient's with feeding tube less than 14 [place] (Dobhoff, J-tube, etc) and pediatric and patients. potassium No Notes: Memori a phosphate-s 7-25 (Same as: l odium 06:51: Phos-NaK) [place] phosphate 00 Each 1.5 250 mg-280 gm [...] WASTE: F/P l 06:51: - Sink; E [place] - [facility] Trash Bin magnesium No Notes: Memori a oxide 7-25 (Same as: l 06:51: Mag-Ox [place] 00 400) Magnesium oxide 836vv=811l g elemental magnesium Dose=____m g magnesium oxide [...] potassium No /= 14 Memoria chloride 7-25 [place]ym[place], l 06:51: march dissolve each 20 mEq tablet in 4 oz of water. Allow about 2 minutes for the tablets to disintegra te. Stir before giving to prepare slurry and administer . Please exclude patient's with feeding tube less than 14 [place] (Dobhoff, J-tube, etc) and pediatric and patients. potassium 2022-0 No Notes: Memori a phosphate-s 7-25 (Same as: l odium 06:51: Phos-NaK) [place] phosphate 00 Each 1.5 250 mg-280 gm pkt has mg-160 mg 250mg oral powder phosphorou for s. Mix reconstitut w/2.5oz ion water and stir. potassium No Notes: Memori a phosphate + 7-25 (Same as: l Sodium 06:51: K [place] Chloride 00 Phosphate. 0.9% IV 250 ) [...] 06:51: Mag-Ox [place] 00 400) Magnesium oxide 913gc=023e g elemental magnesium Dose=____m g magnesium oxide (___mg elemental magnesium) calcium No Notes: Memoria gluconate 7-25 WASTE: F/P l 06:51: - Sink; E [place] 00 - [facility] Trash Bin calcium No Notes: Memoria gluconate + 7-25 WASTE: F/P l Sodium 06:51: - Sink; E [place] n Chloride 00 - 0.9% IV 120 [facility] mL Trash Bin Dextrose No 25 mL, Memoria 50% Syringe 7-25 Route: l (D50W) 06:51: IVP, [place] 00 Dosing Weight 63.636, kg, PRN, PRN [...] potassium No /= 14 Memoria chloride 7-25 [place]ym[place], l 06:51: march dissolve each 20 mEq tablet in 4 oz of water. Allow about 2 minutes for the tablets to disintegra te. Stir before giving to prepare slurry and administer . Please exclude patient's with feeding tube less than 14 Cym[place] (Dobhoff, J-tube, etc) and pediatric and patients. potassium No Notes: Memori a phosphate-s - (Same as: l odium 06:51: Phos-NaK) [place]omas phosphate 00 Each 1.5 250 mg-280 gm pkt has mg-160 mg 250mg oral powder phosphorou for s. Mix reconstitut w/2.5oz ion water and stir. potassium No Notes: Memori a phosphate + 7-25 (Same as: l Sodium 06:51: K [place] Chloride 00 Phosphate. 0.9% IV 250 ) [...] oxide 7-25 (Same as: l 06:51: Mag-Ox [place] 00 400) Magnesium oxide 545on=591q g elemental magnesium Dose=____m g magnesium oxide (___mg elemental magnesium) calcium No Notes: Memoria gluconate 7-25 WASTE: F/P l 06:51: - Sink; E [place] - [facility] Trash Bin calcium No Notes: [...] potassium No /= 14 Memoria chloride 7-25 Cym[place], l 06:51: march dissolve each 20 mEq tablet in 4 oz of water. Allow about 2 minutes for the tablets to disintegra te. Stir before giving to prepare slurry and administer . Please exclude patient's with feeding tube less than 14 [place] (Dobhoff, J-tube, etc) and pediatric and patients. [...] oxide 7-25 (Same as: l 06:51: Mag-Ox 00 400) Magnesium oxide 456vh=617f g elemental magnesium Dose=____m g magnesium oxide (___mg elemental magnesium) calcium No Notes: Memoria gluconate 7-25 WASTE: F/P l 06:51: - Sink; E - [facility] Trash Bin calcium No Notes: Memoria gluconate + 7-25 WASTE: F/P l Sodium 06:51: - Sink; E [place] n Chloride 00 - 0.9% IV 120 [facility] mL Trash Bin Dextrose 0 No 25 mL, Memoria 50% Syringe 7-25 [...] potassium No /= 14 Memoria chloride 7-25 Cym[place], l 06:51: may dissolve each 20 mEq tablet in 4 oz of water. Allow about 2 minutes for the tablets to disintegra te. Stir before giving to prepare slurry and administer . Please exclude patient's with feeding tube less than 14 Cym[place] (Dobhoff, J-tube, etc) and pediatric and patients. [...] oxide 7-25 (Same as: l 06:51: Mag-Ox [place] 00 400) Magnesium oxide 536zt=254o g elemental magnesium Dose=____m g magnesium oxide (___mg elemental magnesium) calcium No Notes: Memoria gluconate 7-25 WASTE: F/P l 06:51: - Sink; E [place] - [facility] Trash Bin calcium No Notes: Memoria gluconate + 7-25 WASTE: F/P l Sodium 06:51: - Sink; E [place] n Chloride 00 - 0.9% IV 120 [facility] mL Trash Bin Dextrose No 25 mL, Memoria 50% Syringe 25 Route: l (D50W) 06:51: IVP, Dosing Weight [...] Tylenol) dextrometho No Notes: Sanya clementine rphan-guaiF 25 (dextromet l ENesin 10 06:51: horphan-gu He rmann mg-200 mg/5 00 aifenesin mL oral 10-100mg/5 liquid ml 10 ml oral SOLN ud) (Same as: Robitussin DM) hydrALAZINE No Notes: Sanya clementine 725 (Same as: l 06:51: Apresoline ) Push over 5 minutes Tessalon No Notes: Memoria Perles 7-25 (Same As: l 06:51: [place] Perles) "Do Not Crush" potassium No /= 14 Memoria chloride 7-25 [place]ym[place], l 06:51: march dissolve each 20 mEq tablet in 4 oz of water. Allow about 2 minutes for the tablets to disintegra te. Stir before giving to prepare slurry and administer . Please exclude patient's with feeding tube less than 14 [place]ym[place] (Dobhoff, J-tube, etc) and pediatric and patients. potassium No Notes: Memori a phosphate-s -25 (Same as: l odium 06:51: Phos-NaK) phosphate [...] 06:51: Mag-Ox [place] 00 400) Magnesium oxide 407vv=188c g elemental magnesium Dose=____m g magnesium oxide (___mg elemental magnesium) calcium No Notes: Memoria gluconate 7-25 WASTE: F/P l 06:51: - Sink; E [place] - [facility] Trash Bin calcium No Notes: [...] potassium No /= 14 Memoria chloride 7-25 Cym[place], l 06:51: march dissolve each 20 mEq tablet in 4 oz of water. Allow about 2 minutes for the tablets to disintegra te. Stir before giving to prepare slurry and administer . Please exclude patient's with feeding tube less than 14 [place]ym[place] (Dobhoff, J-tube, etc) and pediatric and patients. potassium No Notes: Memori a phosphate-s 06-13 (Same as: l odium 06:51: Phos-NaK) phosphate 00 Each 1.5 250 mg-280 gm pkt has mg-160 mg 250mg oral powder phosphorou for s. Mix reconstitut w/2.5oz ion water and stir. potassium No Notes: Memori a phosphate + 06-13 (Same as: l Sodium 06:51: K [place] Chloride 00 Phosphate. 0.9% IV 250 ) [...] as: l 06:51: Mag-Ox 400) Magnesium oxide 536xg=152e g elemental magnesium Dose=____m g magnesium oxide (___mg elemental magnesium) calcium No Notes: Memoria gluconate 7-25 WASTE: F/P l 06:51: - Sink; E [place] - [facility] Trash Bin calcium No Notes: [...] 1:51:00 CDT, Duration: 30 day, Stop date: 08/24/22 1:50:00 CDT, 0 ondansetron No Notes: Sanya [...] potassium No /= 14 Memoria chloride 7-25 [place], l 06:51: march dissolve each 20 mEq tablet in 4 oz of water. Allow about 2 minutes for the tablets to disintegra te. Stir before giving to prepare slurry and administer . Please exclude patient's with feeding tube less than 14 [place] (Dobhoff, J-tube, etc) and pediatric and patients. potassium No Notes: Memori a phosphate-s 06-13 (Same as: l odium 06:51: Phos-NaK) phosphate 00 Each 1.5 250 mg-280 gm pkt has mg-160 mg 250mg oral powder phosphorou for s. Mix reconstitut w/2.5oz ion water and stir. potassium No Notes: Memori a phosphate + 06-13 (Same as: l Sodium 06:51: K [place] Chloride 00 Phosphate. 0.9% IV 250 ) [...] as: l 06:51: Mag-Ox 400) Magnesium oxide 561ci=818m g elemental magnesium Dose=____m g magnesium oxide (___mg elemental magnesium) calcium No Notes: Memoria gluconate 25 WASTE: F/P l 06:51: - Sink; E [place] - [facility] Trash Bin calcium No Notes: [...] potassium No /= 14 Memoria chloride 7-25 [place]ym[place], l 06:51: march dissolve each 20 mEq tablet in 4 oz of water. Allow about 2 minutes for the tablets to disintegra te. Stir before giving to prepare slurry and administer . Please exclude patient's with feeding tube less than 14 [place] (Dobhoff, J-tube, etc) and pediatric and patients. [...] as: l 06:51: Mag-Ox 400) Magnesium oxide 207da=523f g elemental magnesium Dose=____m g magnesium oxide [...] CDT, 0 ondansetron No Notes: Sanya clementine 25 (Same as: l 06:51: Zofran) MEDICATION WASTE [...] potassium No /= 14 Memoria chloride - [place], l 06:51: march dissolve each 20 mEq tablet in 4 oz of water. Allow about 2 minutes for the tablets to disintegra te. Stir before giving to prepare slurry and administer . Please exclude patient's with feeding tube less than 14 [place] (Dobhoff, J-tube, etc) and pediatric and patients. [...] as: l 06:51: Mag-Ox 400) Magnesium oxide 436ka=408r g elemental magnesium Dose=____m g magnesium oxide [...] 06-13 not exceed l 06:51: 4 gm/day. [place] 00 (Same as: Tylenol) dextrometho No Notes: Sanya clementine rphan-guaiF 06-13 (dextromet l ENesin 10 06:51: horphan-gu He rmann mg-200 mg/5 00 aifenesin mL oral 10-100mg/5 liquid ml 10 ml oral SOLN ud) (Same as: Robitussin DM) hydrALAZINE No Notes: Sanya clementine - (Same as: l 06:51: Apresoline ) Push over 5 minutes [place]on No Notes: Memoria Perles 06-13 (Same As: l 06:51: [place] Perles) "Do Not Crush" potassium No /= 14 Memoria chloride 7-25 [place]ym[place], l 06:51: march dissolve each 20 mEq tablet in 4 oz of water. Allow about 2 minutes for the tablets to disintegra te. Stir before giving to prepare slurry and administer . Please exclude patient's with feeding tube less than 14 [place] (Dobhoff, J-tube, etc) and pediatric and patients. potassium No Notes: Memori a phosphate-s 06-13 (Same as: l odium 06:51: Phos-NaK) phosphate 00 Each 1.5 250 mg-280 gm pkt has mg-160 mg 250mg oral powder phosphorou for s. Mix reconstitut w/2.5oz ion water and stir. potassium No Notes: Memori a phosphate + -25 (Same as: l Sodium 06:51: K Chloride [...] as: l 06:51: Mag-Ox 400) Magnesium oxide 171rx=879u g elemental magnesium Dose=____m g magnesium oxide [...] a 7-25 (Same as: l 06:51: Melatonin) Tomas 00 acetaminoph No Notes: Do M emoria en 06-13 not exceed l 06:51: 4 gm/day. Tomas (Same as: Tylenol) dextrometho No Notes: Sanya [...] potassium No /= 14 Memoria chloride 7-25 [place]ym[place], l 06:51: march dissolve each 20 mEq tablet in 4 oz of water. Allow about 2 minutes for the tablets to disintegra te. Stir before giving to prepare slurry and administer . Please exclude patient's with feeding tube less than 14 C[place] (Dobhoff, J-tube, etc) and pediatric and patients. potassium No Notes: Memori a phosphate-s 06-13 (Same as: l odium 06:51: Phos-NaK) [place] phosphate 00 Each 1.5 250 mg-280 gm pkt has mg-160 mg 250mg oral powder phosphorou for s. Mix reconstitut w/2.5oz ion water and stir. potassium No Notes: Memori a phosphate + -25 (Same as: l Sodium 06:51: K [place] Chloride 00 Phosphate. 0.9% IV 250 ) [...] as: l 06:51: Mag-Ox 400) Magnesium oxide 193cy=092o g elemental magnesium Dose=____m g magnesium oxide [...] clementine 06-13 (Same as: l 06:51: Apresoline [place] 00 ) Push over 5 minutes Tessalon No Notes: Memoria Perles 06-13 (Same As: l 06:51: Tessalon Perles) "Do Not Crush" potassium No /= 14 Memoria chloride -25 Cym[place], l 06:51: may dissolve each 20 mEq tablet in 4 oz of water. Allow about 2 minutes for the tablets to disintegra te. Stir before giving to prepare slurry and administer . Please exclude patient's with feeding tube less than 14 [place] (Dobhoff, J-tube, etc) and pediatric and patients. [...] as: l 06:51: Mag-Ox 400) Magnesium oxide 626sj=793w g elemental magnesium Dose=____m g magnesium oxide [...] potassium No /= 14 Memoria chloride 7-25 Cym[place], l 06:51: march [place] 00 dissolve each 20 mEq tablet in 4 oz of water. Allow about 2 minutes for the tablets to disintegra te. Stir before giving to prepare slurry and administer . Please exclude patient's with feeding tube less than 14 [place] (Dobhoff, J-tube, etc) and pediatric and patients. potassium No Notes: Memori a phosphate-s -25 (Same as: l odium 06:51: Phos-NaK) [place] phosphate 00 Each 1.5 250 mg-280 gm pkt has mg-160 mg 250mg oral powder phosphorou for s. Mix reconstitut w/2.5oz ion water and stir. potassium No Notes: Memori a phosphate + -25 (Same as: l Sodium 06:51: K [place] Chloride 00 Phosphate. 0.9% IV 250 ) [...] as: l 06:51: Mag-Ox 400) Magnesium oxide 560yv=954t g elemental magnesium Dose=____m g magnesium oxide [...] potassium No /= 14 Memoria chloride 7-25 [place], l 06:51: may [place] dissolve each 20 mEq tablet in 4 oz of water. Allow about 2 minutes for the tablets to disintegra te. Stir before giving to prepare slurry and administer . Please exclude patient's with feeding tube less than 14 [place] (Dobhoff, J-tube, etc) and pediatric and patients. potassium No Notes: Memori a phosphate-s - (Same as: l odium 06:51: Phos-NaK) [place] phosphate 00 Each 1.5 250 mg-280 gm pkt has mg-160 mg 250mg oral powder phosphorou for s. Mix reconstitut w/2.5oz ion water and stir. potassium No Notes: Memori a phosphate + -25 (Same as: l Sodium 06:51: K [place] Chloride 00 Phosphate. 0.9% IV 250 ) [...] as: l 06:51: Mag-Ox 400) Magnesium oxide 459mu=191z g elemental magnesium Dose=____m g magnesium oxide [...] clementine 7-25 (Same as: l 06:51: Apresoline [place] 00 ) Push over 5 minutes Tessalon No Notes: Memoria Perles 7-25 (Same As: l 06:51: [place] 00 Perles) "Do Not Crush" potassium No /= 14 Memoria chloride 7-25 Cymro, l 06:51: may [place] 00 dissolve each 20 mEq tablet in 4 oz of water. Allow about 2 minutes for the tablets to disintegra te. Stir before giving to prepare slurry and administer . Please exclude patient's with feeding tube less than 14 C[place] (Dobhoff, J-tube, etc) and pediatric and patients. potassium No Notes: Memori a phosphate-s -25 (Same as: l odium 06:51: Phos-NaK) [place] phosphate 00 Each 1.5 250 mg-280 gm pkt has mg-160 mg 250mg oral powder phosphorou for s. Mix reconstitut w/2.5oz ion water and stir. potassium No Notes: Memori a phosphate + 7-25 (Same as: l Sodium 06:51: K [place] Chloride 00 Phosphate. 0.9% IV 250 ) [...] WASTE: F/P l 06:51: - Sink; E [place] - [facility] Trash Bin magnesium No Notes: Memori a oxide -25 (Same as: l 06:51: Mag-Ox 400) Magnesium oxide 748ts=649m g elemental magnesium Dose=____m g magnesium oxide (___mg elemental magnesium) calcium No Notes: Memoria gluconate 25 WASTE: F/P l 06:51: - Sink; E [...] potassium No /= 14 Memoria chloride 7-25 Cym[place], l 06:51: march [place] 00 dissolve each 20 mEq tablet in 4 oz of water. Allow about 2 minutes for the tablets to disintegra te. Stir before giving to prepare slurry and administer . Please exclude patient's with feeding tube less than 14 Cym[place] (Dobhoff, J-tube, etc) and pediatric and patients. [...] WASTE: F/P l 06:51: - Sink; E [place] - [facility] Trash Bin magnesium No Notes: Memori a oxide 7-25 (Same as: l 06:51: Mag-Ox 400) Magnesium oxide 501ps=646d g elemental magnesium Dose=____m g magnesium oxide [...] potassium No /= 14 Memoria chloride 7-25 Cym[place], l 06:51: may [place] dissolve each 20 mEq tablet in 4 oz of water. Allow about 2 minutes for the tablets to disintegra te. Stir before giving to prepare slurry and administer . Please exclude patient's with feeding tube less than 14 Cym[place] (Dobhoff, J-tube, etc) and pediatric and patients. potassium No Notes: Memori a phosphate-s 7-25 (Same as: l odium 06:51: Phos-NaK) [place] phosphate 00 Each 1.5 250 mg-280 gm [...] oxide 7-25 (Same as: l 06:51: Mag-Ox [place] 00 400) Magnesium oxide 686zu=969q g elemental magnesium Dose=____m g magnesium oxide (___mg elemental magnesium) calcium No Notes: Memoria gluconate 06-13 WASTE: F/P l 06:51: - Sink; E [place] - [facility] Trash Bin calcium No Notes: [...] clementine 7-25 (Same as: l 06:51: Apresoline [place] 00 ) Push over 5 minutes Tess[place]on No Notes: Memoria Perles 7-25 (Same As: l 06:51: [place] Tomas 00 Perles) "Do Not Crush" potassium No /= 14 Memoria chloride 7-25 Cymro, l 06:51: may [place] 00 dissolve each 20 mEq tablet in 4 oz of water. Allow about 2 minutes for the tablets to disintegra te. Stir before giving to prepare slurry and administer . Please exclude patient's with feeding tube less than 14 [place]ym[place] (Dobhoff, J-tube, etc) and pediatric and patients. potassium No Notes: Memori a phosphate-s 7-25 (Same as: l odium 06:51: Phos-NaK) [place] phosphate 00 Each 1.5 250 mg-280 gm [...] oxide -25 (Same as: l 06:51: Mag-Ox [place] 00 400) Magnesium oxide 413qv=757s g elemental magnesium Dose=____m g magnesium oxide (___mg elemental magnesium) calcium No Notes: Memoria gluconate 06-13 WASTE: F/P l 06:51: - Sink; E [place] - [facility] Trash Bin calcium No Notes: [...] Perles 7-25 (Same As: l 06:51: [place] Perles) "Do Not Crush" potassium No /= 14 Memoria chloride 7-25 Cymro, l 06:51: march [place] 00 dissolve each 20 mEq tablet in 4 oz of water. Allow about 2 minutes for the tablets to disintegra te. Stir before giving to prepare slurry and administer . Please exclude patient's with feeding tube less than 14 [place] (Dobhoff, J-tube, etc) and pediatric and patients. potassium No Notes: Memori a phosphate-s 7-25 (Same as: l odium 06:51: Phos-NaK) [place] phosphate 00 Each 1.5 250 mg-280 gm [...] oxide 7-25 (Same as: l 06:51: Mag-Ox [place] 00 400) Magnesium oxide 384fk=066v g elemental magnesium Dose=____m g magnesium oxide [...] potassium No /= 14 Memoria chloride 7-25 [place], l 06:51: march [place] 00 dissolve each 20 mEq tablet in 4 oz of water. Allow about 2 minutes for the tablets to disintegra te. Stir before giving to prepare slurry and administer . Please exclude patient's with feeding tube less than 14 [place] (Dobhoff, J-tube, etc) and pediatric and patients. potassium No Notes: Memori a phosphate-s 7-25 (Same as: l odium 06:51: Phos-NaK) [place] phosphate 00 Each 1.5 250 mg-280 gm [...] 06:51: Mag-Ox [place] 00 400) Magnesium oxide 030ww=243s g elemental magnesium Dose=____m g magnesium oxide (___mg elemental magnesium) calcium No Notes: Memoria gluconate 06-13 WASTE: F/P l 06:51: - Sink; E [place] - [facility] Trash Bin calcium No Notes: [...] potassium No /= 14 Memoria chloride 7-25 [place], l 06:51: march [place] 00 dissolve each 20 mEq tablet in 4 oz of water. Allow about 2 minutes for the tablets to disintegra te. Stir before giving to prepare slurry and administer . Please exclude patient's with feeding tube less than 14 [place] (Dobhoff, J-tube, etc) and pediatric and patients. potassium No Notes: Memori a phosphate-s 7-25 (Same as: l odium 06:51: Phos-NaK) [place] phosphate 00 Each 1.5 250 mg-280 gm pkt has mg-160 mg 250mg oral powder phosphorou for s. Mix reconstitut w/2.5oz ion water and stir. potassium No Notes: Memori a phosphate + 7-25 (Same as: l Sodium 06:51: K [place] Chloride 00 Phosphate. 0.9% IV 250 ) [...] 06:51: Mag-Ox [place] 00 400) Magnesium oxide 307mk=185n g elemental magnesium Dose=____m g magnesium oxide [...] potassium No /= 14 Memoria chloride 7-25 [place], l 06:51: march [place] 00 dissolve each 20 mEq tablet in 4 oz of water. Allow about 2 minutes for the tablets to disintegra te. Stir before giving to prepare slurry and administer . Please exclude patient's with feeding tube less than 14 [place] (Dobhoff, J-tube, etc) and pediatric and patients. potassium No Notes: Memori a phosphate-s 7-25 (Same as: l odium 06:51: Phos-NaK) [place] phosphate 00 Each 1.5 250 mg-280 gm [...] 06:51: Mag-Ox [place] 00 400) Magnesium oxide 450jn=516w g elemental magnesium Dose=____m g magnesium oxide [...] Tylenol) dextrometho No Notes: Sanya clementine rphan-guaiF 25 (dextromet l ENesin 10 06:51: horphan-gu He [...] potassium No /= 14 Memoria chloride 7-25 [place], l 06:51: march dissolve each 20 mEq tablet in 4 oz of water. Allow about 2 minutes for the tablets to disintegra te. Stir before giving to prepare slurry and administer . Please exclude patient's with feeding tube less than 14 [place] (Dobhoff, J-tube, etc) and pediatric and patients. [...] WASTE: F/P l 06:51: - Sink; E [place] 00 - [facility] Trash Bin magnesium No Notes: Memori a oxide -25 (Same as: l 06:51: Mag-Ox [place] 00 400) Magnesium oxide 863hs=692d g elemental magnesium Dose=____m g magnesium oxide (___mg elemental magnesium) calcium No Notes: Memoria gluconate -25 WASTE: F/P l 06:51: - Sink; E [place] 00 - [facility] Trash Bin calcium No [...] potassium No /= 14 Memoria chloride 7-25 [place], l 06:51: may dissolve each 20 mEq tablet in 4 oz of water. Allow about 2 minutes for the tablets to disintegra te. Stir before giving to prepare slurry and administer . Please exclude patient's with feeding tube less than 14 [place] (Dobhoff, J-tube, etc) and pediatric and patients. potassium No Notes: Memori a phosphate-s 7-25 (Same as: l odium 06:51: Phos-NaK) [place] phosphate 00 Each 1.5 250 mg-280 gm pkt has mg-160 mg 250mg oral powder phosphorou for s. Mix reconstitut w/2.5oz ion water and stir. potassium No Notes: Memori a phosphate + 7-25 (Same as: l Sodium 06:51: K [place] Chloride 00 Phosphate. 0.9% IV 250 ) [...] oxide 7-25 (Same as: l 06:51: Mag-Ox [place] 00 400) Magnesium oxide 202mt=389a g elemental magnesium Dose=____m g magnesium oxide [...] Syringe 06-13 Route: l (D50W) 06:51: IVP, [place] 00 Dosing Weight 63.636, kg, PRN, PRN [...] ___ mg melatonin No Notes: Memori a 25 (Same as: l 06:51: Melatonin) acetaminoph No Notes: Do M emoria en 06-13 not exceed l 06:51: 4 gm/day. (Same as: Tylenol) dextrometho No Notes: Sanya clementine rphan-guaiF 25 (dextromet l ENesin 10 06:51: horphan-gu He [...] potassium No /= 14 Memoria chloride 7-25 [place], l 06:51: march dissolve each 20 mEq tablet in 4 oz of water. Allow about 2 minutes for the tablets to disintegra te. Stir before giving to prepare slurry and administer . Please exclude patient's with feeding tube less than 14 [place] (Dobhoff, J-tube, etc) and pediatric and patients. potassium No Notes: Memori a phosphate-s 7-25 (Same as: l odium 06:51: Phos-NaK) [place] phosphate 00 Each 1.5 250 mg-280 gm [...] WASTE: F/P l 06:51: - Sink; E [place] - [facility] Trash Bin magnesium No Notes: Memori a oxide 7-25 (Same as: l 06:51: Mag-Ox [place] 00 400) Magnesium oxide 722mf=651m g elemental magnesium Dose=____m g magnesium oxide (___mg elemental magnesium) calcium No Notes: Memoria gluconate 7-25 WASTE: F/P l 06:51: - Sink; E [place] 00 - [facility] Trash Bin calcium No [...] potassium No /= 14 Memoria chloride 7-25 [place], l 06:51: march dissolve each 20 mEq tablet in 4 oz of water. Allow about 2 minutes for the tablets to disintegra te. Stir before giving to prepare slurry and administer . Please exclude patient's with feeding tube less than 14 [place] (Dobhoff, J-tube, etc) and pediatric and patients. potassium 2022-0 No Notes: Memori a phosphate-s 7-25 (Same [...] WASTE: F/P l 06:51: - Sink; E [place] - [facility] Trash Bin magnesium No Notes: Memori a oxide 7-25 (Same as: l 06:51: Mag-Ox [place] 00 400) Magnesium oxide 516ym=096d g elemental magnesium Dose=____m g magnesium oxide (___mg elemental magnesium) calcium No Notes: [facility]oria gluconate 7-25 WASTE: F/P l 06:51: - Sink; E [place] 00 - [facility] Trash Bin calcium No Notes: [facility] gluconate + 7-25 WASTE: F/P l Sodium 06:51: - Sink; E [place] Chloride 00 - 0.9% IV 120 [facility] mL Trash Bin Dextrose No 25 mL, Memoria 50% Syringe 7-25 Route: l (D50W) 06:51: IVP, [place] 00 Dosing Weight 63.636, kg, PRN, PRN [...] potassium No /= 14 Memoria chloride 7-25 [place], l 06:51: march dissolve each 20 mEq tablet in 4 oz of water. Allow about 2 minutes for the tablets to disintegra te. Stir before giving to prepare slurry and administer . Please exclude patient's with feeding tube less than 14 [place] (Dobhoff, J-tube, etc) and pediatric and patients. potassium No Notes: Memori a phosphate-s - (Same as: l odium 06:51: Phos-NaK) [place] phosphate 00 Each 1.5 250 mg-280 gm pkt has mg-160 mg 250mg oral powder phosphorou for s. Mix reconstitut w/2.5oz ion water and stir. potassium No Notes: Memori a phosphate + 7-25 (Same as: l Sodium 06:51: K [place] Chloride 00 Phosphate. 0.9% IV 250 ) [...] WASTE: F/P l 06:51: - Sink; E [place] 00 - [facility] Trash Bin magnesium No Notes: Memori a oxide 7-25 (Same as: l 06:51: Mag-Ox [place] 00 400) Magnesium oxide 282ri=294t g elemental magnesium Dose=____m g magnesium oxide [...] Syringe 06-13 Route: l (D50W) 06:51: IVP, [place] 00 Dosing Weight 63.636, kg, PRN, PRN [...] potassium No /= 14 Memoria chloride 7-25 [place], l 06:51: march dissolve each 20 mEq tablet in 4 oz of water. Allow about 2 minutes for the tablets to disintegra te. Stir before giving to prepare slurry and administer . Please exclude patient's with feeding tube less than 14 [place] (Dobhoff, J-tube, etc) and pediatric and patients. potassium No Notes: Memori a phosphate-s 06-13 (Same as: l odium 06:51: Phos-NaK) phosphate 00 Each 1.5 250 mg-280 gm pkt has mg-160 mg 250mg oral powder phosphorou for s. Mix reconstitut w/2.5oz ion water and stir. potassium No Notes: Memori a phosphate + 7-25 (Same as: l Sodium 06:51: K [place] Chloride 00 Phosphate. 0.9% IV 250 ) [...] oxide 7-25 (Same as: l 06:51: Mag-Ox 00 400) Magnesium oxide 175gx=519y g elemental magnesium Dose=____m g magnesium oxide (___mg elemental magnesium) calcium No Notes: [facility]oria gluconate 7-25 WASTE: F/P l 06:51: - Sink; E - [facility] Trash Bin calcium No Notes: [facility] gluconate + 7-25 WASTE: F/P l Sodium 06:51: - Sink; E [place] n Chloride 00 - 0.9% IV 120 [facility] mL Trash Bin Dextrose 0 No 25 mL, Memoria 50% Syringe 7-25 [...] potassium No /= 14 Memoria chloride 7-25 [place], l 06:51: may dissolve each 20 mEq tablet in 4 oz of water. Allow about 2 minutes for the tablets to disintegra te. Stir before giving to prepare slurry and administer . Please exclude patient's with feeding tube less than 14 [place] (Dobhoff, J-tube, etc) and pediatric and patients. [...] oxide 7-25 (Same as: l 06:51: Mag-Ox [place] 00 400) Magnesium oxide 842qt=354v g elemental magnesium Dose=____m g magnesium oxide [...] Syringe 25 Route: l (D50W) 06:51: IVP, Dosing Weight [...] Tylenol) dextrometho No Notes: Sanya clementine rphan-guaiF 25 (dextromet l ENesin 10 06:51: horphan-gu He rmann mg-200 mg/5 00 aifenesin mL oral 10-100mg/5 liquid ml 10 ml oral SOLN ud) (Same as: Robitussin DM) hydrALAZINE No Notes: Sanya clementine 725 (Same as: l 06:51: Apresoline ) Push over 5 minutes [place] No Notes: Memoria Perles 7-25 (Same As: l 06:51: [place] Perles) "Do Not Crush" potassium No /= 14 Memoria chloride 7-25 [place], l 06:51: march dissolve each 20 mEq tablet in 4 oz of water. Allow about 2 minutes for the tablets to disintegra te. Stir before giving to prepare slurry and administer . Please exclude patient's with feeding tube less than 14 [place] (Dobhoff, J-tube, etc) and pediatric and patients. potassium No Notes: Memori a phosphate-s -25 (Same as: l odium 06:51: Phos-NaK) phosphate [...] oxide 7-25 (Same as: l 06:51: Mag-Ox [place] 00 400) Magnesium oxide 772fd=613q g elemental magnesium Dose=____m g magnesium oxide (___mg elemental magnesium) calcium No Notes: Memoria gluconate 7-25 WASTE: F/P l 06:51: - Sink; E [place] - [facility] Trash Bin calcium No Notes: [...] potassium No /= 14 Memoria chloride 7-25 [place], l 06:51: march dissolve each 20 mEq tablet in 4 oz of water. Allow about 2 minutes for the tablets to disintegra te. Stir before giving to prepare slurry and administer . Please exclude patient's with feeding tube less than 14 [place] (Dobhoff, J-tube, etc) and pediatric and patients. [...] as: l 06:51: Mag-Ox 400) Magnesium oxide 264wx=649i g elemental magnesium Dose=____m g magnesium oxide [...] 1:51:00 CDT, Duration: 30 day, Stop date: 08/24/22 1:50:00 CDT, 0 ondansetron No Notes: Sanya [...] potassium No /= 14 Memoria chloride 7-25 [place], l 06:51: march dissolve each 20 mEq tablet in 4 oz of water. Allow about 2 minutes for the tablets to disintegra te. Stir before giving to prepare slurry and administer . Please exclude patient's with feeding tube less than 14 [place] (Dobhoff, J-tube, etc) and pediatric and patients. [...] as: l 06:51: Mag-Ox 400) Magnesium oxide 606rc=358n g elemental magnesium Dose=____m g magnesium oxide (___mg elemental magnesium) calcium No Notes: Memoria gluconate 25 WASTE: F/P l 06:51: - Sink; E [place] - [facility] Trash Bin calcium No Notes: [...] potassium No /= 14 Memoria chloride 7-25 [place], l 06:51: march dissolve each 20 mEq tablet in 4 oz of water. Allow about 2 minutes for the tablets to disintegra te. Stir before giving to prepare slurry and administer . Please exclude patient's with feeding tube less than 14 [place] (Dobhoff, J-tube, etc) and pediatric and patients. [...] as: l 06:51: Mag-Ox 400) Magnesium oxide 863mu=152n g elemental magnesium Dose=____m g magnesium oxide [...] CDT, 0 ondansetron No Notes: Sanya clementine 25 (Same as: l 06:51: Zofran) MEDICATION WASTE [...] potassium No /= 14 Memoria chloride - [place], l 06:51: march dissolve each 20 mEq tablet in 4 oz of water. Allow about 2 minutes for the tablets to disintegra te. Stir before giving to prepare slurry and administer . Please exclude patient's with feeding tube less than 14 [place] (Dobhoff, J-tube, etc) and pediatric and patients. [...] as: l 06:51: Mag-Ox 400) Magnesium oxide 989se=178l g elemental magnesium Dose=____m g magnesium oxide [...] 06-13 not exceed l 06:51: 4 gm/day. [place] 00 (Same as: Tylenol) dextrometho No Notes: Sanya clementine rphan-guaiF 06-13 (dextromet l ENesin 10 06:51: horphan-gu He rmann mg-200 mg/5 00 aifenesin mL oral 10-100mg/5 liquid ml 10 ml oral SOLN ud) (Same as: Robitussin DM) hydrALAZINE No Notes: Sanya clementine - (Same as: l 06:51: Apresoline ) Push over 5 minutes [place] No Notes: Memoria Perles 06-13 (Same As: l 06:51: [place] Perles) "Do Not Crush" potassium No /= 14 Memoria chloride 7-25 [place], l 06:51: march dissolve each 20 mEq tablet in 4 oz of water. Allow about 2 minutes for the tablets to disintegra te. Stir before giving to prepare slurry and administer . Please exclude patient's with feeding tube less than 14 [place] (Dobhoff, J-tube, etc) and pediatric and patients. potassium No Notes: Memori a phosphate-s 06-13 (Same as: l odium 06:51: Phos-NaK) phosphate 00 Each 1.5 250 mg-280 gm pkt has mg-160 mg 250mg oral powder phosphorou for s. Mix reconstitut w/2.5oz ion water and stir. potassium No Notes: Memori a phosphate + -25 (Same as: l Sodium 06:51: K Chloride [...] as: l 06:51: Mag-Ox 400) Magnesium oxide 274bl=407k g elemental magnesium Dose=____m g magnesium oxide [...] a 7-25 (Same as: l 06:51: Melatonin) [place] 00 acetaminoph No Notes: Do M emoria en 06-13 not exceed l 06:51: 4 gm/day. [place] (Same as: Tylenol) dextrometho No Notes: Sanya [...] potassium No /= 14 Memoria chloride 7-25 [place], l 06:51: march dissolve each 20 mEq tablet in 4 oz of water. Allow about 2 minutes for the tablets to disintegra te. Stir before giving to prepare slurry and administer . Please exclude patient's with feeding tube less than 14 [place] (Dobhoff, J-tube, etc) and pediatric and patients. potassium No Notes: Memori a phosphate-s 06-13 (Same as: l odium 06:51: Phos-NaK) [place] phosphate 00 Each 1.5 250 mg-280 gm pkt has mg-160 mg 250mg oral powder phosphorou for s. Mix reconstitut w/2.5oz ion water and stir. potassium No Notes: Memori a phosphate + -25 (Same as: l Sodium 06:51: K [place] Chloride 00 Phosphate. 0.9% IV 250 ) [...] as: l 06:51: Mag-Ox 400) Magnesium oxide 458rh=471l g elemental magnesium Dose=____m g magnesium oxide [...] clementine 06-13 (Same as: l 06:51: Apresoline [place] 00 ) Push over 5 minutes [place] No Notes: Memoria Perles 06-13 (Same As: l 06:51: [place] Perles) "Do Not Crush" potassium No /= 14 Memoria chloride -25 [place], l 06:51: may dissolve each 20 mEq tablet in 4 oz of water. Allow about 2 minutes for the tablets to disintegra te. Stir before giving to prepare slurry and administer . Please exclude patient's with feeding tube less than 14 [place] (Dobhoff, J-tube, etc) and pediatric and patients. [...] as: l 06:51: Mag-Ox 400) Magnesium oxide 851vu=399s g elemental magnesium Dose=____m g magnesium oxide [...] 06-13 not exceed l 06:51: 4 gm/day. [place] 00 (Same as: Tylenol) dextrometho No Notes: Sanya clementine rphan-guaiF 7-25 (dextromet l ENesin 10 06:51: horphan-gu He rmann mg-200 mg/5 00 aifenesin mL oral 10-100mg/5 liquid ml 10 ml oral SOLN ud) (Same as: Robitussin DM) hydrALAZINE No Notes: Sanya clementine 7-25 (Same as: l 06:51: Apresoline [place] 00 ) Push over 5 minutes [place] No Notes: Memoria Perles -25 (Same As: l 06:51: [place] 00 Perles) "Do Not Crush" potassium No /= 14 Memoria chloride 7-25 [place], l 06:51: march [place] 00 dissolve each 20 mEq tablet in 4 oz of water. Allow about 2 minutes for the tablets to disintegra te. Stir before giving to prepare slurry and administer . Please exclude patient's with feeding tube less than 14 [place] (Dobhoff, J-tube, etc) and pediatric and patients. potassium No Notes: Memori a phosphate-s -25 (Same as: l odium 06:51: Phos-NaK) [place] phosphate 00 Each 1.5 250 mg-280 gm pkt has mg-160 mg 250mg oral powder phosphorou for s. Mix reconstitut w/2.5oz ion water and stir. potassium No Notes: Memori a phosphate + -25 (Same as: l Sodium 06:51: K [place] [...] as: l 06:51: Mag-Ox 400) Magnesium oxide 640gv=530a g elemental magnesium Dose=____m g magnesium oxide (___mg elemental magnesium) calcium No Notes: Memoria gluconate 06-13 WASTE: F/P l 06:51: - Sink; E [place] - [facility] Trash Bin calcium No Notes: [...] potassium No /= 14 Memoria chloride 7-25 [place], l 06:51: may [place] dissolve each 20 mEq tablet in 4 oz of water. Allow about 2 minutes for the tablets to disintegra te. Stir before giving to prepare slurry and administer . Please exclude patient's with feeding tube less than 14 [place] (Dobhoff, J-tube, etc) and pediatric and patients. potassium No Notes: Memori a phosphate-s - (Same as: l odium 06:51: Phos-NaK) [place] phosphate 00 Each 1.5 250 mg-280 gm pkt has mg-160 mg 250mg oral powder phosphorou for s. Mix reconstitut w/2.5oz ion water and stir. potassium No Notes: Memori a phosphate + -25 (Same as: l Sodium 06:51: K [place] Chloride 00 Phosphate. 0.9% IV 250 ) [...] as: l 06:51: Mag-Ox 400) Magnesium oxide 770et=141x g elemental magnesium Dose=____m g magnesium oxide [...] clementine 7-25 (Same as: l 06:51: Apresoline [place] 00 ) Push over 5 minutes [place] No Notes: Memoria Perles 7-25 (Same As: l 06:51: [place] 00 Perles) "Do Not Crush" potassium No /= 14 Memoria chloride 7-25 [place], l 06:51: may [place] 00 dissolve each 20 mEq tablet in 4 oz of water. Allow about 2 minutes for the tablets to disintegra te. Stir before giving to prepare slurry and administer . Please exclude patient's with feeding tube less than 14 [place] (Dobhoff, J-tube, etc) and pediatric and patients. potassium No Notes: Memori a phosphate-s -25 (Same as: l odium 06:51: Phos-NaK) [place] phosphate 00 Each 1.5 250 mg-280 gm pkt has mg-160 mg 250mg oral powder phosphorou for s. Mix reconstitut w/2.5oz ion water and stir. potassium No Notes: Memori a phosphate + 7-25 (Same as: l Sodium 06:51: K [place] Chloride 00 Phosphate. 0.9% IV 250 ) [...] as: l 06:51: Mag-Ox 400) Magnesium oxide 861zp=914y g elemental magnesium Dose=____m g magnesium oxide (___mg elemental magnesium) calcium No Notes: Memoria gluconate 25 WASTE: F/P l 06:51: - Sink; E [...] clementine 7-25 (Same as: l 06:51: Apresoline [place] 00 ) Push over 5 minutes [place] No Notes: Memoria Perles 7-25 (Same As: l 06:51: [place] 00 Perles) "Do Not Crush" potassium No /= 14 Memoria chloride 7-25 [place], l 06:51: march [place] 00 dissolve each 20 mEq tablet in 4 oz of water. Allow about 2 minutes for the tablets to disintegra te. Stir before giving to prepare slurry and administer . Please exclude patient's with feeding tube less than 14 [place] (Dobhoff, J-tube, etc) and pediatric and patients. [...] l 06:51: - Sink; E [place] - [facility] Trash Bin magnesium No Notes: Memori a oxide 7-25 (Same as: l 06:51: Mag-Ox 400) Magnesium oxide 736gq=974f g elemental magnesium Dose=____m g magnesium oxide (___mg elemental magnesium) calcium No Notes: Memoria gluconate 06-13 WASTE: F/P l 06:51: - Sink; E [place] - [facility] Trash Bin calcium No Notes: [...] potassium No /= 14 Memoria chloride 7-25 [place], l 06:51: may [place] dissolve each 20 mEq tablet in 4 oz of water. Allow about 2 minutes for the tablets to disintegra te. Stir before giving to prepare slurry and administer . Please exclude patient's with feeding tube less than 14 [place] (Dobhoff, J-tube, etc) and pediatric and patients. potassium No Notes: Memori a phosphate-s 7-25 (Same as: l odium 06:51: Phos-NaK) [place] phosphate 00 Each 1.5 250 mg-280 gm pkt has mg-160 mg 250mg oral powder phosphorou for s. Mix reconstitut w/2.5oz ion water and stir. potassium No Notes: Memori a phosphate + 7-25 (Same as: l Sodium 06:51: K [place] Chloride 00 Phosphate. 0.9% IV 250 ) [...] oxide 7-25 (Same as: l 06:51: Mag-Ox [place] 00 400) Magnesium oxide 326re=477u g elemental magnesium Dose=____m g magnesium oxide [...] Perles 7-25 (Same As: l 06:51: [place] 00 Perles) "Do Not Crush" potassium No /= 14 Memoria chloride 7-25 [place], l 06:51: may [place] 00 dissolve each 20 mEq tablet in 4 oz of water. Allow about 2 minutes for the tablets to disintegra te. Stir before giving to prepare slurry and administer . Please exclude patient's with feeding tube less than 14 [place] (Dobhoff, J-tube, etc) and pediatric and patients. potassium No Notes: Memori a phosphate-s 7-25 (Same as: l odium 06:51: Phos-NaK) [place] phosphate 00 Each 1.5 250 mg-280 gm [...] oxide -25 (Same as: l 06:51: Mag-Ox [place] 00 400) Magnesium oxide 614bo=906l g elemental magnesium Dose=____m g magnesium oxide [...] Memoria 06-13 (Same as: l 02:15: Lasix) [place] 00 MEDICATION WASTE Product Size: 40 mg Product Wasted: ___ mg Lasix 0 No Notes: Memoria 06-13 (Same as: l 02:15: Lasix) [place] 00 MEDICATION WASTE Product Size: 40 mg Product Wasted: ___ mg Lasix No Notes: Memoria 06-13 (Same as: l 02:15: Lasix) [place] 00 MEDICATION WASTE Product Size: 40 mg [...] Memoria 06-13 (Same as: l 02:15: Lasix) [place] 00 MEDICATION WASTE Product Size: 40 mg Product Wasted: ___ mg Lasix 2022-0 No Notes: Memoria 06-13 (Same as: l 02:15: Lasix) [place] 00 MEDICATION WASTE Product Size: 40 mg [...] Memoria 06-13 (Same as: l 02:15: Lasix) [place] 00 MEDICATION WASTE Product Size: 40 mg Product Wasted: ___ mg Lasix 2022-0 No Notes: Memoria 06-13 (Same as: l 02:15: Lasix) [place] 00 MEDICATION WASTE Product Size: 40 mg Product Wasted: ___ mg Lasix 2022-0 No Notes: Memoria 06-13 (Same as: l 02:15: Lasix) [place] 00 MEDICATION WASTE Product Size: 40 mg Product Wasted: ___ mg Lasix 2022-0 No Notes: Memoria 06-13 (Same as: l 02:15: Lasix) [place] 00 MEDICATION WASTE Product Size: 40 mg [...] Memoria 06-13 (Same as: l 02:15: Lasix) [place] 00 MEDICATION WASTE Product Size: 40 mg Product Wasted: ___ mg Lasix 2022-0 No Notes: Memoria 06-13 (Same as: l 02:15: Lasix) [place] 00 MEDICATION WASTE Product Size: 40 mg [...] Memoria 06-13 (Same as: l 02:15: Lasix) [place] 00 MEDICATION WASTE Product Size: 40 mg Product Wasted: ___ mg Lasix 2022-0 No Notes: Memoria 06-13 (Same as: l 02:15: Lasix) [place] 00 MEDICATION WASTE Product Size: 40 mg Product Wasted: ___ mg Lasix 2022-0 No Notes: Memoria 06-13 (Same as: l 02:15: Lasix) [place] 00 MEDICATION WASTE Product Size: 40 mg Product Wasted: ___ mg Lasix 2022-0 No Notes: Memoria 06-13 (Same as: l 02:15: Lasix) [place] 00 MEDICATION WASTE Product Size: 40 mg Product Wasted: ___ mg Lasix 2022-0 No Notes: Memoria 06-13 (Same as: l 02:15: Lasix) [place] 00 MEDICATION WASTE Product Size: 40 mg Product Wasted: ___ mg Lasix 2022-0 No Notes: Memoria 06-13 (Same as: l 02:15: Lasix) [place] 00 MEDICATION WASTE Product Size: 40 mg [...] Memoria 06-13 (Same as: l 02:15: Lasix) [place] 00 MEDICATION WASTE Product Size: 40 mg Product Wasted: ___ mg Lasix 2022-0 No Notes: Memoria 06-13 (Same as: l 02:15: Lasix) [place] 00 MEDICATION WASTE Product Size: 40 mg Product Wasted: ___ mg Lasix 2022-0 No Notes: Memoria 06-13 (Same as: l 02:15: Lasix) [place] 00 MEDICATION WASTE Product Size: 40 mg [...] Memoria 06-13 (Same as: l 02:15: Lasix) [place] 00 MEDICATION WASTE Product Size: 40 mg Product Wasted: ___ mg Lasix 2022-0 No Notes: Memoria 06-13 (Same as: l 02:15: Lasix) [place] 00 MEDICATION WASTE Product Size: 40 mg Product Wasted: ___ mg Lasix 2022-0 No Notes: Memoria 06-13 (Same as: l 02:15: Lasix) [place] 00 MEDICATION WASTE Product Size: 40 mg [...] ___ mg Lasix 2022-0 No Notes: Memoria - (Same as: l 02:15: Lasix) [place] 00 MEDICATION WASTE Product Size: 40 mg Product Wasted: ___ mg Lasix 2022-0 No Notes: Memoria - (Same as: l 02:15: Lasix) [place] 00 MEDICATION WASTE Product Size: 40 mg Product Wasted: ___ mg Lasix 2021-0 No Notes: Memoria 7-25 (Same as: l 02:15: Lasix) [place] 00 MEDICATION WASTE Product Size: 40 mg Product Wasted: ___ mg Lasix 2021-0 No Notes: Memoria 7-25 (Same as: l 02:15: Lasix) [place] 00 MEDICATION WASTE Product Size: 40 mg Product Wasted: ___ mg Lasix 2021-0 No Notes: Memoria 7-25 (Same as: l 02:15: Lasix) [place] 00 MEDICATION WASTE Product Size: 40 mg Product Wasted: ___ mg Lasix 2021-0 No Notes: Memoria 7-25 (Same as: l 02:15: Lasix) [place] 00 MEDICATION WASTE Product Size: 40 mg Product Wasted: ___ mg Lasix 2021-0 No Notes: Memoria 7-25 (Same as: l 02:15: Lasix) [place] 00 MEDICATION WASTE Product Size: 40 mg Product Wasted: ___ mg dexamethaso 2021- No 10 mg, 2.5 Memoria ne 7-25 mL, Route: l 01:03: IVP, Drug [place] 00 form: INJ, ONCE, Dosing Weight 63.636, kg, Priority: STAT, Start date: 06/12/22 20:03:00 CDT, Stop date: 06/12/22 20:03:00 CDT, 0 albuterol-i 2021-0 No Notes: Sanya clementine pratropium -25 (Same [...] 7-25 mL, Route: l 01:03: IVP, Drug [place] 00 form: INJ, ONCE, Dosing Weight 63.636, kg, Priority: STAT, Start date: 06/12/22 20:03:00 CDT, Stop date: 06/12/22 20:03:00 CDT, 0 albuterol-i 2022-0 No Notes: Sanya clementine pratropium 7-25 (Same as: l 2.5-0.5 mg 01:03: Duoneb) Herm nupur inhalation 00 solution dexamethaso 2-0 No 10 mg, 2.5 Memoria ne 7-25 mL, Route: l 01:03: IVP, Drug [place] 00 form: INJ, ONCE, Dosing Weight 63.636, kg, Priority: STAT, Start date: 06/12/22 20:03:00 CDT, Stop date: 06/12/22 20:03:00 CDT, 0 albuterol-i 2022-0 No Notes: Sanya clementine pratropium 7-25 (Same as: l 2.5-0.5 mg 01:03: Duoneb) [place] nupur inhalation 00 solution dexamethaso 2-0 No 10 mg, 2.5 Memoria ne 7-25 mL, Route: l 01:03: IVP, Drug [place] 00 form: INJ, ONCE, Dosing Weight 63.636, [...] CDT, 0 albuterol-i 2021-0 No Notes: Sanya clemetnine pratropium 7-25 (Same as: l 2.5-0.5 mg [...] 7-25 mL, Route: l 01:03: IVP, Drug [place] 00 form: INJ, ONCE, Dosing Weight 63.636, [...] 7-25 mL, Route: l 01:03: IVP, Drug [place] 00 form: INJ, ONCE, Dosing Weight 63.636, [...] 7-25 mL, Route: l 01:03: IVP, Drug [place] 00 form: INJ, ONCE, Dosing Weight 63.636, kg, Priority: STAT, Start date: 06/12/22 20:03:00 CDT, Stop date: 06/12/22 20:03:00 CDT, 0 albuterol-i 202-0 No Notes: Sanya clementine pratropium 7-25 (Same as: l 2.5-0.5 mg :03: Duoneb) Herm nupur inhalation 00 solution dexamethaso 2021-0 No 10 mg, 2.5 Memoria ne 7-25 mL, Route: l 01:03: IVP, Drug [place] 00 form: INJ, ONCE, Dosing Weight 63.636, kg, Priority: STAT, Start date: 06/12/22 20:03:00 CDT, Stop date: 06/12/22 20:03:00 CDT, 0 albuterol-i 2021-0 No Notes: Sanya clementine pratropium 7-25 (Same as: l 2.5-0.5 mg 01:03: Duoneb) [place] nupur inhalation 00 solution dexamethaso 2021-0 No 10 mg, 2.5 Memoria ne 7-25 mL, Route: l 01:03: IVP, Drug [place] 00 form: INJ, ONCE, Dosing Weight 63.636, [...] 20:03:00 CDT, 0 albuterol-i 2022-0 No Notes: Asnya clementine pratropium 7-25 (Same as: l 2.5-0.5 [...] 7-25 mL, Route: l 01:03: IVP, Drug [place] 00 form: INJ, ONCE, Dosing Weight 63.636, [...] 7-25 mL, Route: l 01:03: IVP, Drug [place] 00 form: INJ, ONCE, Dosing Weight 63.636, [...] 7-25 mL, Route: l 01:03: IVP, Drug [place] 00 form: INJ, ONCE, Dosing Weight 63.636, kg, Priority: STAT, Start date: 06/12/22 20:03:00 CDT, Stop date: 06/12/22 20:03:00 CDT, 0 albuterol-i 2021-0 No Notes: Sanya clementine pratropium 7-25 (Same as: l 2.5-0.5 mg 01:03: Duoneb) [place] nupur inhalation 00 solution dexamethaso 2021-0 No 10 mg, 2.5 Memoria ne 7-25 mL, Route: l 01:03: IVP, Drug [place] 00 form: INJ, ONCE, Dosing Weight 63.636, [...] 7-25 mL, Route: l 01:03: IVP, Drug [place] 00 form: INJ, ONCE, Dosing Weight 63.636, kg, Priority: STAT, Start date: 06/12/22 20:03:00 CDT, Stop date: 06/12/22 20:03:00 CDT, 0 albuterol-i 2021-0 No Notes: Sanya clementine pratropium 7-25 (Same as: l 2.5-0.5 mg 01:03: Duoneb) Herm nupur inhalation 00 solution dexamethaso 2021-0 No 10 mg, 2.5 Memoria ne 7-25 mL, Route: l 01:03: IVP, Drug [place] 00 form: INJ, ONCE, Dosing Weight 63.636, kg, Priority: STAT, Start date: 06/12/22 20:03:00 CDT, Stop date: 06/12/22 20:03:00 CDT, 0 albuterol-i 2021-0 No Notes: Sanya clementine pratropium 7-25 (Same as: l 2.5-0.5 mg 01:03: Duoneb) Herm nupur inhalation 00 solution dexamethaso 2021-0 No 10 mg, 2.5 Memoria ne 7-25 mL, Route: l 01:03: IVP, Drug [place] 00 form: INJ, ONCE, Dosing Weight 63.636, [...] 7-25 mL, Route: l 01:03: IVP, Drug [place] 00 form: INJ, ONCE, Dosing Weight 63.636, [...] 7-25 mL, Route: l 01:03: IVP, Drug [place] 00 form: INJ, ONCE, Dosing Weight 63.636, kg, Priority: STAT, Start date: 06/12/22 20:03:00 CDT, Stop date: 06/12/22 20:03:00 CDT, 0 albuterol-i 2021-0 No Notes: Sanya clementine pratropium 7-25 (Same as: l 2.5-0.5 mg 01:03: Duoneb) [place] nupur inhalation 00 solution dexamethaso 2021-0 No 10 mg, 2.5 Memoria ne 7-25 mL, Route: l 01:03: IVP, Drug [place] 00 form: INJ, ONCE, Dosing Weight 63.636, kg, Priority: STAT, Start date: 06/12/22 20:03:00 CDT, Stop date: 06/12/22 20:03:00 CDT, 0 albuterol-i 2021-0 No Notes: Sanya clementine pratropium 7-25 (Same as: l 2.5-0.5 mg 01:03: Duoneb) [place] nupur inhalation 00 solution dexamethaso 2021-0 No 10 mg, 2.5 Memoria ne 7-25 mL, Route: l 01:03: IVP, Drug [place] form: INJ, ONCE, Dosing Weight 63.636, kg, Priority: STAT, Start date: 06/12/22 20:03:00 CDT, Stop date: 06/12/22 20:03:00 CDT, 0 albuterol-i 2021-0 No Notes: Sanya clementine pratropium 7-25 (Same as: l 2.5-0.5 mg 01:03: Duoneb) Herm nupur inhalation 00 solution dexamethaso 2021-0 No 10 mg, 2.5 Memoria ne 7-25 mL, Route: l 01:03: IVP, Drug [place] 00 form: INJ, ONCE, Dosing Weight 63.636, kg, Priority: STAT, Start date: 06/12/22 20:03:00 CDT, Stop date: 06/12/22 20:03:00 CDT, 0 albuterol-i 2022-0 No Notes: Sanya clementine pratropium 7-25 (Same as: l 2.5-0.5 mg 01:03: Duoneb) Herm nupur inhalation 00 solution dexamethaso 2021-0 No 10 mg, 2.5 Memoria ne 7-25 mL, Route: l 01:03: IVP, Drug [place] 00 form: INJ, ONCE, Dosing Weight 63.636, kg, Priority: STAT, Start date: 06/12/22 20:03:00 CDT, Stop date: 06/12/22 20:03:00 CDT, 0 albuterol-i 2021-0 No Notes: Sanya clementine pratropium 7-25 (Same as: l 2.5-0.5 mg 01:03: Duoneb) [place] nupur inhalation 00 solution dexamethaso 2021-0 No 10 mg, 2.5 Memoria ne 7-25 mL, Route: l 01:03: IVP, Drug [place] 00 form: INJ, ONCE, Dosing Weight 63.636, [...] 7-25 mL, Route: l 01:03: IVP, Drug [place] 00 form: INJ, ONCE, Dosing Weight 63.636, kg, Priority: STAT, Start date: 06/12/22 20:03:00 CDT, Stop date: 06/12/22 20:03:00 CDT, 0 albuterol-i 2-0 No Notes: Sanya clementine pratropium 7-25 (Same as: l 2.5-0.5 mg 01:03: Duoneb) Herm nupur inhalation 00 solution dexamethaso 2021-0 No 10 mg, 2.5 Memoria ne 7-25 mL, Route: l 01:03: IVP, Drug [place] form: INJ, ONCE, Dosing Weight 63.636, kg, Priority: STAT, Start date: 06/12/22 20:03:00 CDT, Stop date: 06/12/22 20:03:00 CDT, 0 albuterol-i 2021-0 No Notes: Sanya clementine pratropium 7-25 (Same as: l 2.5-0.5 mg 01:03: Duoneb) [place] nupur inhalation 00 solution dexamethaso 2-0 No 10 mg, 2.5 Memoria ne 7-25 mL, Route: l 01:03: IVP, Drug [place] 00 form: INJ, ONCE, Dosing Weight 63.636, [...] 7-25 (Same as: l 2.5-0.5 mg 01:03: one) [place] nupur inhalation solution dexamethaso No 10 mg, 2.5 Memoria ne 7-25 mL, Route: l 01:03: IVP, Drug form: INJ, ONCE, Dosing Weight 63.636, kg, Priority: STAT, Start date: 06/12/22 20:03:00 CDT, Stop date: 06/12/22 20:03:00 CDT, 0 albuterol-i No Notes: Sanya clementine pratropium 7-25 (Same as: l 2.5-0.5 mg 01:03: ) Herm nupur inhalation solution Tramadol Tramadol Yes Jose Alberto 1 tablet Common HCl HCl 6-30 [facility] 00:00: - [facility] Tramadol Tramadol No 1{table Tramadol HCl 50 [...] A DAY. BY MOUTH ONCE A DAY. anastrozole anastrozole No 1 Q1D anastrozol [place] 1 mg tablet 1 mg tablet e 1 mg Family Take 1 Take 1 tablet Practic tablet tablet Take 1 e every day every day tablet by oral by oral every day route. route. by oral route. omeprazole omeprazole No omeprazole [facility] 20 mg 20 mg 20 mg Medical capsule,del capsule,del capsule,de Group ayed ayed layed release release release TAKE ONE TAKE ONE TAKE ONE (1) (1) (1) CAPSULE(S) CAPSULE(S) CAPSULE(S) BY MOUTH BY MOUTH BY MOUTH ONCE A DAY. ONCE A DAY. ONCE A DAY. hydrochloro hydrochloro No 1 Q1D hydrochlor [place] [...] before before route meals. meals. before meals. valacyclovi valacyclovi No valacyclov [facility] r 1 gram r 1 gram ir 1 gram Me dical tablet TAKE tablet TAKE tablet Group ONE (1) ONE (1) TAKE ONE TABLET(S) TABLET(S) (1) BY MOUTH BY MOUTH TABLET(S) THREE TIMES THREE TIMES BY MOUTH A DAY. A DAY. THREE TIMES A DAY. Hydrochloro Hydrochloro Yes Jose Alberto not Common thiazide thiazide Ring defined Spir it [facility] Anastrozole Anastrozole Yes Jose Alberto not Common Ring defined [facility] Omeprazole Omeprazole Yes Jose Alberto not Common Ring defined [facility] Losartan Losartan Yes Jose Alberto not Comm on Potassium Potassium Ring defined Sp amber [facility] Losartan Losartan No Losartan Potassium Potassium [...] ts Source Name Name Influenza 2022-06-20 Completed [employer] ge 00:00:00 of Medicine Influenza 2022-06-20 Completed [employer] ge 00:00:00 of Medicine Influenza 2022-06-20 Completed [employer] ge 00:00:00 of Medicine Hyalgan 20 mg Hyalgan 20 mg 2020-10-06 Completed [facility] - 11:17:00 [facility] Hyalgan 20 mg Hyalgan 20 mg 2020-09-29 Completed [facility] - 11:59:00 [facility] Hyalgan 20 mg Hyalgan 20 mg 2020-09-29 Completed [facility] - 11:59:00 [facility] Hyalgan 20 mg Hyalgan 20 mg 2020-09-22 Completed [facility] - 09:44:00 [facility] Hyalgan 20 mg Hyalgan 20 mg 2020-09-22 Completed [facility] - 09:44:00 [facility] Hyalgan 20 mg Hyalgan 20 mg 2020-09-22 Completed [facility] - 09:44:00 [facility] Bupivicaine [place] Bupivicaine [place] 2020-05-19 Completed [facility] - 09:05:00 [facility] Bupivicaine [place] Bupivicaine [place] 2020-05-19 Completed [facility] - 09:05:00 [facility] Bupivicaine [place] Bupivicaine [place] 2020-05-19 Completed [facility] - 09:05:00 [facility] Bupivicaine [place] Bupivicaine [place] 2020-05-19 Completed [facility] - 09:05: [facility] Kenalog Kenalog 2020-05-19 Completed [facility] - (Triamcinolone) (Triamcinolone) 09:04:00 [facility] Kenalog Kenalog 2020-05-19 Completed [facility] - (Triamcinolone) (Triamcinolone) 09:04:00 [facility] Kenalog Kenalog 2020-05-19 Completed [facility] - (Triamcinolone) (Triamcinolone) 09:04: [facility] Kenalog Kenalog 2020-05-19 Completed [facility] - (Triamcinolone) (Triamcinolone) 09:04:00 [facility] Kenalog Kenalog 2020-02-24 Completed [facility] - (Triamcinolone) (Triamcinolone) 15:16:00 [facility] Kenalog Kenalog 2020-02-24 Completed [facility] - (Triamcinolone) (Triamcinolone) 15:16:00 [facility] Kenalog Kenalog 2020-02-24 Completed [facility] - (Triamcinolone) (Triamcinolone) 15:16:00 [facility] Kenalog Kenalog 2020-02-24 Completed [facility] - (Triamcinolone) (Triamcinolone) 15:16:00 [facility] Bupivicaine [place] Bupivicaine [place] 2020-02-24 Completed [facility] - 15:15:00 [facility] Bupivicaine [place] Bupivicaine [place] 2020-02-24 Completed [facility] - 15:15:00 [facility] Bupivicaine [place] Bupivicaine [place] 2020-02-24 Completed [facility] - 15:15:00 [facility] Bupivicaine [place] Bupivicaine [place] 2020-02-24 Completed [facility] - 15:15:00 [facility] Depo Medrol (40mg) Depo Medrol (40mg) 2019-06-06 Completed [facility] - 09:38:00 [facility] Bupivicaine [place] Bupivicaine [place] 2019-06-06 Completed [facility] - 09:38:00 [facility] Depo Medrol (40mg) Depo Medrol (40mg) 2019-06-06 Completed [facility] - 09:38:00 [facility] Bupivicaine [place] Bupivicaine [place] 2019-06-06 Completed [facility] - 09:38:00 [facility] Depo Medrol (40mg) Depo Medrol (40mg) 2019-06-06 Completed [facility] - 09:38:00 [facility] Bupivicaine [place] Bupivicaine [place] 2019-06-06 Completed [facility] - 09:38:00 [facility] Depo Medrol (40mg) Depo Medrol (40mg) 2019-06-06 Completed [facility] - 09:38:00 [facility] Bupivicaine [place] Bupivicaine [place] 2019-06-06 Completed [facility] - 09:38:00 [facility] Vital Signs Vital Name Observation Time Observation Value Comments Source Systolic blood 2022-11-15 16:26:00 117 mm[Hg] [facility] pressure Medicine Diastolic blood 2022-11-15 16:26:00 57 mm[Hg] [facility] pressure Medicine Heart rate 2022-11-15 16:26:00 85 /min [facility] Body temperature 2022-11-15 16:26:00 36.61 Lovely [facility] Body height 2022-11-15 16:26:00 165.1 cm [facility] Body weight 2022-11-15 16:26:00 61.598 kg [facility] BMI 2022-11-15 16:26:00 22.60 kg/m2 [facility] HEIGHT 2022-11-02 09:00:00 167.6 cm WEIGHT 2022-11-02 09:00:00 73.029 kg HEIGHT 2022-11-02 09:00:00 167.6 cm WEIGHT 2022-11-02 09:00:00 73.029 kg HEIGHT 2022-11-02 09:00:00 167.6 cm WEIGHT 2022-11-02 09:00:00 73.029 kg Systolic blood 2022-10-25 15:05:00 101 mm[Hg] [facility] pressure Medicine Diastolic blood 2022-10-25 15:05:00 59 mm[Hg] [facility] pressure Medicine Heart rate 2022-10-25 15:05:00 102 /min [facility] Body temperature 2022-10-25 15:05:00 36.78 Lovely [facility] Body height 2022-10-25 15:05:00 165.1 cm [facility] Body weight 2022-10-25 15:05:00 [facility]963 [facility] BMI 2022-10-25 15:05:00 22.37 kg/m2 [facility] Systolic blood 2022-10-18 20:42:00 144 mm[Hg] [facility] pressure Medicine Diastolic blood 2022-10-18 20:42:00 77 mm[Hg] [facility] Medicine Heart rate 2022-10-18 20:42:00 74 /min [facility] Body temperature 2022-10-18 20:42:00 36.67 Lovely [facility] Respiratory rate 2022-10-18 20:42:00 16 /min [facility] Body height 2022-10-18 20:42:00 165.1 cm [facility] Body weight 2022-10-18 20:42:00 60.328 kg [facility] BMI 2022-10-18 20:42:00 22.13 kg/m2 [facility] Systolic blood 2022-10-18 13:56:00 144 mm[Hg] [facility] pressure Medicine Diastolic blood 2022-10-18 13:56:00 77 mm[Hg] [facility] pressure Medicine Heart rate 2022-10-18 13:55:00 74 /min [facility] Respiratory rate 2022-10-18 13:55:00 16 /min [facility] Body height 2022-10-18 13:55:00 165.1 cm [facility] Body weight 2022-10-18 13:55:00 60.328 kg [facility] BMI 2022-10-18 13:55:00 22.13 kg/m2 [facility] Oxygen saturation in 2022-10-18 13:55:00 94 /min [facility] Arterial blood by [facility] Pulse oximetry WEIGHT 2022-10-10 05:00:00 63.231 kg [...] Systolic blood 2022-08-30 13:41:00 119 mm[Hg] [facility] pressure Medicine Diastolic blood 2022-08-30 13:41:00 56 mm[Hg] [facility] Medicine Heart rate 2022-08-30 13:38:00 109 /min [facility] Respiratory rate 2022-08-30 13:38:00 16 /min [facility] Body height 2022-08-30 13:38:00 165.1 cm [facility] Body weight 2022-08-30 13:38:00 71.668 kg pt states [facility] BMI 2022-08-30 13:38:00 26.29 kg/m2 [facility] Oxygen saturation in 2022-08-30 13:38:00 98 /min [facility] Arterial blood by [facility] Pulse oximetry Systolic blood 2022-08-24 13:00:00 99 mm[Hg] [facility] pressure Medicine Diastolic blood 2022-08-24 13:00:00 55 mm[Hg] [facility] Medicine Heart rate 2022-08-24 13:00:00 91 /min [facility] Body temperature 2022-08-24 12:30:00 36.67 Lovely [facility] Body height 2022-08-24 12:30:00 160 cm [facility] Body weight 2022-08-24 12:30:00 71.215 kg [facility] BMI 2022-08-24 12:30:00 27.81 kg/m2 [facility] HEIGHT 2022-08-18 10:40:00 160 cm WEIGHT 2022-08-18 10:40:00 68.04 kg HEIGHT 2022-08-18 10:40:00 160 cm WEIGHT 2022-08-18 10:40:00 68.04 kg HEIGHT 2022-08-18 10:40:00 160 cm WEIGHT 2022-08-18 10:40:00 68.04 kg height 2020-10-06 15:15:00 61.5 [in_i] Common [facility] weight 2020-10-06 15:15:00 157 [lb_av] [facility] temperature 2020-10-06 15:15:00 97.1 [degF] [facility] bmi 2020-10-06 15:15:00 29.18 kg/m2 [facility] pirit [facility] blood pressure 2020-10-06 15:15:00 142 mm[Hg] [facility] - systolic [facility] blood pressure 2020-10-06 15:15:00 84 mm[Hg] [facility] - diastolic [facility] height 2020-09-29 11:15:00 61.5 [in_i] [facility] weight 2020-09-29 11:15:00 157 [lb_av] [facility] temperature 2020-09-29 11:15:00 97.3 [degF] Common S pirit [facility] bmi 2020-09-29 11:15:00 29.18 kg/m2 Common [facility] blood pressure 2020-09-29 11:15:00 144 mm[Hg] [facility] - systolic [facility] blood pressure 2020-09-29 11:15:00 84 mm[Hg] [facility] - diastolic [facility] height 2020-09-22 09:30:00 61.5 [in_i] [facility] weight 2020-09-22 09:30:00 157 [lb_av] [facility] temperature 2020-09-22 09:30:00 97.1 [degF] [facility] bmi 2020-09-22 09:30:00 29.18 kg/m2 [facility] blood pressure 2020-09-22 09:30:00 160 mm[Hg] [facility] - systolic [facility] blood pressure 2020-09-22 09:30:00 84 mm[Hg] [facility] - diastolic [facility] height 2020-09-10 09:30:00 61.5 [in_i] [facility] weight 2020-09-10 09:30:00 157 [lb_av] [facility] bmi 2020-09-10 09:30:00 29.18 kg/m2 [facility] blood pressure 2020-09-10 09:30:00 134 mm[Hg] [facility] - systolic [facility] blood pressure 2020-09-10 09:30:00 72 mm[Hg] Common [facility] - diastolic [facility] Systolic blood 2022-11-02 12:36:00 121 mm[Hg] [facility] Diastolic blood 2022-11-02 12:36:00 50 mm[Hg] [facility] Heart rate 2022-11-02 12:36:00 75 /min [facility] Body temperature 2022-11-02 12:36:00 36.56 Lovely [facility] Respiratory rate 2022-11-02 12:36:00 19 /min [facility] Oxygen saturation in 2022-11-02 12:36:00 96 /min [facility] Arterial blood by Medical Ce [facility]ter Pulse oximetry Body height 2022-11-02 09:00:00 167.6 cm [facility] Body weight 2022-11-02 09:00:00 73.029 kg [facility] BMI 2022-11-02 09:00:00 26.00 kg/m2 [facility] Systolic blood 2022-10-10 15:00:00 108 mm[Hg] [facility] Diastolic blood 2022-10-10 15:00:00 60 mm[Hg] [facility] Heart rate 2022-10-10 15:00:00 85 /min [facility] Body temperature 2022-10-10 15:00:00 36.5 Lovely [facility] Respiratory rate 2022-10-10 15:00:00 19 /min [facility] Oxygen saturation in 2022-10-10 15:00:00 99 /min [facility] Arterial blood by [facility] Pulse oximetry Body weight 2022-10-10 05:00:00 63.231 kg [facility] BMI 2022-10-10 05:00:00 22.51 kg/m2 [facility] Body height 2022-10-07 21:32:00 167.6 cm [facility] Systolic blood 2022-09-28 15:25:00 100 mm[Hg] [facility] Diastolic blood 2022-09-28 15:25:00 59 mm[Hg] [facility] Heart rate 2022-09-28 15:25:00 96 /min [facility] Body temperature 2022-09-28 15:25:00 35.61 Lovely [facility] Respiratory rate 2022-09-28 15:25:00 18 /min [facility] Oxygen saturation in 2022-09-28 15:25:00 97 /min [facility] Arterial blood by Medical Ce [facility]ter Pulse oximetry Body weight 2022-09-28 08:42:00 66.282 kg [facility] BMI 2022-09-28 08:42:00 23.60 kg/m2 [facility] Body height 2022-09-22 09:00:00 167.6 cm [facility] Systolic blood 2022-08-18 12:18:00 116 mm[Hg] [facility] Diastolic blood 2022-08-18 12:18:00 53 mm[Hg] [facility] Heart rate 2022-08-18 12:18:00 91 /min [facility] Respiratory rate 2022-08-18 12:18:00 18 /min [facility] Oxygen saturation in 2022-08-18 12:18:00 100 /min [facility] Arterial blood by Medical Ce [facility]ter Pulse oximetry Body temperature 2022-08-18 10:40:00 36.72 Lovely [facility] Body height 2022-08-18 10:40:00 160 cm [facility] Body weight 2022-08-18 10:40:00 68.04 kg [facility] BMI 2022-08-18 10:40:00 26.57 kg/m2 [facility] Heart Rate 2022-06-17 16:38:41 [facility] [place] Systolic (mm Hg) 2022-06-17 16:38:36 Sanya rial [place] Diastolic (mm Hg) 2022-06-17 16:38:36 Mem [facility] [place] Heart Rate 2022-06-17 16:38:36 [facility] Heart Rate 2022-06-17 13:21:37 [facility] [place] Systolic (mm Hg) 2022-06-17 13:21:31 Sanya rial [place] Diastolic (mm Hg) 2022-06-17 13:21:31 Mem orial [place] Temperature Oral (F) 2022-06-17 13:19:30 98.3 F [facility] [place] Respitory Rate 2022-06-17 12:55:00 Mem[facility] [place] Temperature Oral (F) 2022-06-17 09:42:49 97.5 F [facility] [place] Systolic (mm Hg) 2022-06-17 09:42:39 Sanya rial [place] Diastolic (mm Hg) 2022-06-17 09:42:39 Mem orial [place] Temperature Oral (F) 2022-06-17 05:57:22 97.5 F [facility] Respitory Rate 2022-06-17 01:23:00 Mem[facility] [place] Respitory Rate 2022-06-16 12:48:00 [facility] [place] Height 2022-06-13 19:35:00 162.56 cm [facility] Weight 2022-06-13 19:35:00 [facility] [place] BMI Calculated 2022-06-13 19:35:00 Mem[facility] [place] Respitory Rate 2022-06-13 11:35:00 Mem[facility] [place] Respitory Rate 2022-06-13 11:00:00 [facility] [place] Systolic (mm Hg) 2022-06-13 11:00:00 Sanya rial [place] Diastolic (mm Hg) 2022-06-13 11:00:00 Mem o[facility] [place] Respitory Rate 2022-06-13 10:00:00 Memori al [place] Systolic (mm Hg) 2022-06-13 10:00:00 Sanya rial [place] Diastolic (mm Hg) 2022-06-13 10:00:00 Mem orial [place] Systolic (mm Hg) 2022-06-13 09:14:00 Sanya rial [place] Diastolic (mm Hg) 2022-06-13 09:14:00 Mem orial [place] Temperature Oral (F) 2022-06-13 01:05:00 98.1 F [facility] [place] Height 2022-06-13 00:20:00 165.1 cm [facility] BMI Calculated 2022-06-13 00:20:00 Memori al [place] Weight 2022-06-13 00:20:00 [facility] Heart Rate 2022-06-13 00:20:00 [facility] [place] Temperature Oral (F) 2022-06-13 00:20:00 98 F [facility] Procedures Procedure Date / Time Performing Clinician Source Performed CT ABDOMEN/PELVIS WITH IV 2022-11-22 10:20:[facility] CHEST WITH IV CONTRAST 2022-11-22 10:20:[address] [facility] POCT-CREATININE 2022-11-22 10:04:[address] [facility] CREATININE,RANDOM URINE 2022-11-15 11:33:26 [facility] SODIUM, RANDOM URINE 2022-11-15 11:33:26 [facility] CULTURE, URINE/SENSITIVITY 2022-11-15 10:47:49 [facility] CANCER ANTIGEN 125 2022-11-15 10:03:00 [facility] MAGNESIUM 2022-11-15 10:03:00 [facility] COMPREHENSIVE METABOLIC 2022-11-15 10:03:00 [facility] CBC W/AUTO DIFF WITH 2022-11-15 10:03:00 [facility] PLATELETS [facility] CBC W ABSOLUTE NEUTROPHIL 2022-11-15 06:21:[address] [facility] XR CHEST 1 VIEW PORTABLE / 2022-11-02 10:57:00 Jordan Moore [facility] INSERTION, CATHETER, 2022-11-02 10:00:00 Jordan Moore [facility] PLEURAL, WITH US GUIDANCE [facility] INSERTION, CATHETER, 2022-11-02 09:10:00 [facility], WITH US GUIDANCE [facility] CANCER ANTIGEN 125 2022-10-25 09:30:00 [facility] MAGNESIUM 2022-10-25 09:30:00 [facility] 2022-10-25 09:30:00 [facility] CBC W/AUTO DIFF WITH 2022-10-25 09:30:00 [facility] PLATELETS [facility] CBC W ABSOLUTE NEUTROPHIL 2022-10-25 06:12:22 Murtaza [facility] PREPARE RBC 2022-10-10 23:54:00 Leticia Enciso [facility] IRON, TIBC, % SAT. (WITHOUT 2022-10-10 03:38:00 Benita [facility] FERRITIN) [facility] [place] FERRITIN 2022-10-10 03:38:00 [facility] W/[facility]T COUNT & AUTO 2022-10-10 03:38:00 Benita [facility] DIFFERENTIAL [facility] COMPREHENSIVE METABOLIC 2022-10-10 03:38:00 [facility] MAGNESIUM 2022-10-10 03:38:00 [facility] W/PLT COUNT & AUTO 2022-10-10 03:38[facility] LEUKO-REDUCED RED 2022-10-09 12:43:00 Minal Joy [facility] BLOOD CELLS [facility] ECG 12-LEAD 2022-10-09 10:31:18 Unknown, Hl7 [facility] ECG 12-LEAD 2022-10-09 10:31:[address] [facility] ECG 12-LEAD 2022-10-09 10:31:18 Unknown, Hl7 [facility] HIGH SENSITIVITY TROPONIN I 2022-10-09 10:19:[address] [facility] TYPE AND SCREEN, AUTOMATED 2022-10-09 09:55:00 Minal Joy [facility] CBC W/PLT COUNT & AUTO 2022-10-09 06:05:00 Benita [facility] COMPREHENSIVE METABOLIC 2022-10-09 06:05:00 Benita [facility] MAGNESIUM 2022-10-09 06:05:00 Benita [facility] CBC W/PLT COUNT & AUTO 2022-10-09 06:05:00 Benita [facility] XR CHEST 1 VIEW PORTABLE / 2022-10-08 15:08:00 Arin Landry [facility] US THORACENTESIS 2022-10-08 15:04:00 Benita [facility] PROTEIN, BODY FLUID 2022-10-08 14:53:00 Minal Joy [facility] BODY FLUID CULTURE + GRAM 2022-10-08 14:53:[address] M[address] [facility] STAIN [facility] BODY FLUID CELL COUNT WITH 2022-10-08 14:53:00 Minal Joy [facility] GLUCOSE, BODY FLUID 2022-10-08 14:53:00 Benita [facility] LACTATE DEHYDROGENASE 2022-10-08 14:53:00 Minal Joy [facility] ([facility] CYTOLOGY 2022-10-08 14:53:00 Benita [facility] URINALYSIS W/ REFLEX URINE 2022-10-08 14:17:00 Minal Joy [facility] PROTHROMBIN TIME/INR 2022-10-08 09:07:00 Minal Joy [facility] URINALYSIS WITH MICROSCOPIC 2022-10-08 08:28:00 Leticia Enciso [facility] IF INDICATED [facility] URINALYSIS MICROSCOPIC 2022-10-08 08:28:00 Leticia Enciso [facility] XR CHEST 1 VIEW PORTABLE / 2022-10-08 07:14:00 Leticia Enciso [facility] BEDSIDE [facility] COMPREHENSIVE METABOLIC 2022-10-08 06:59:00 Leticia Enciso [facility] PANEL [facility] CBC W/PLT COUNT & AUTO 2022-10-08 04:38:00 [facility] W/[facility]T COUNT & AUTO 2022-10-08 04:38:00 [facility] HIGH SENSITIVITY TROPONIN I 2022-10-07 22:10:00 Leticia Enciso [facility] B-TYPE NATRIURETIC FACTOR 2022-10-07 22:10:[address] [facility] (BNP) [facility] 2022-10-07 22:10:00 Leticia Enciso [facility] ECG 12-LEAD 2022-09-28 06:56:56 Unknown, Hl7 [facility] ECG 12-LEAD 2022-09-28 06:56:56 Curtis Douglas [facility] ECG 12-LEAD 2022-09-28 06:56:56 Unknown, Hl7 [facility] BASIC METABOLIC PANEL 2022-09-28 03:29:00 Minal Joy [facility] CBC W/PLT COUNT & AUTO 2022-09-28 03:29:[address] [facility] MAGNESIUM 2022-09-28 03:29:00 Benita [facility] CBC W/PLT COUNT & AUTO 2022-09-28 03:29:00 Minal Joy [facility] XR CHEST 1 VIEW PORTABLE / 2022-09-27 19:44:[address] [facility] BEDSIDE [facility] ECG 12-LEAD 2022-09-27 17:29:42 Unknown, Hl7 [facility] ECG 12-LEAD 2022-09-27 17:29:42 Babita Matos [facility] ECG 12-LEAD 2022-09-27 17:29:42 Unknown, Hl7 [facility] INSERTION, ELECTRODE LEAD, 2022-09-27 13:34:00 Nitin Mane [facility] CARDIAC PACEMAKER [facility] ECG 12-LEAD 2022-09-27 06:12:00 Unknown, Hl7 [facility] ECG 12-LEAD 2022-09-27 06:12:00 DeshoteCurtis barron [facility] ECG 12-LEAD 2022-09-27 06:12:00 Unknown, Hl7 [facility] CBC W/PLT COUNT & AUTO 2022-09-27 04:09:00 [facility] BASIC METABOLIC PANEL 2022-09-27 04:09:00 Joy [facility] MAGNESIUM 2022-09-27 04:09:00 [facility] CBC W/PLT COUNT & AUTO 2022-09-27 04:09:00 [facility] BASIC METABOLIC PANEL 2022-09-26 08:15:00 Ava Welsh [facility] ECG 12-LEAD 2022-09-26 04:52:37 DeshoteCurtis barron [facility] SARS-COV2/RT-PCR ([facility] & 2022-09-26 01:29:00 Brii Carey [facility] REF LABS) [facility] ECG 12-LEAD 2022-09-25 05:26:02 DeshoCurtis stinson [facility] BASIC METABOLIC PANEL 2022-09-24 14:29:00 Brii Carey I [facility] ECG 12-LEAD 2022-09-24 13:45:16 Unknown, Hl7 Doctor [facility] ECG 12-LEAD 2022-09-24 13:45:16 Curtis Douglas [facility] ECG 12-LEAD 2022-09-24 13:45:16 Unknown, Hl7 Doctor [facility] BASIC METABOLIC PANEL 2022-09-23 07:31:00 Brii Carey [facility] MAGNESIUM 2022-09-23 07:31:00 Brii Carey [facility] CBC W/PLT COUNT & AUTO 2022-09-23 07:31:00 Brii Carey [facility] CBC W/PLT COUNT & AUTO 2022-09-23 07:31:00 Brii Carey [facility] ECG 12-LEAD 2022-09-23 07:19:04 Nikolay Cruz [facility] BASIC METABOLIC PANEL 2022-09-22 05:39:00 Sergey Prather [facility] CBC W/PLT COUNT & AUTO 2022-09-22 05:39:00 Sergey Prather [facility] MAGNESIUM 2022-09-22 05:39:00 Sergey Prather [facility] CBC W/PLT COUNT & AUTO 2022-09-22 05:39:00 Sergey Prather [facility] PREPARE RBC 2022-09-21 23:54:00 Jimy Pepper [facility] BODY FLUID CULTURE + GRAM 2022-09-21 13:31:00 Javon Mdcowell [facility] I [facility] CYTOLOGY 2022-09-21 13:31:00 July [facility] BODY FLUID CELL COUNT WITH 2022-09-21 13:30:00 Javon Mcdowell C [facility] LACTATE DEHYDROGENASE 2022-09-21 13:29:00 [facility] ([facility] BODY FLUID [facility] PROTEIN, BODY FLUID 2022-09-21 13:29:00 [facility] XR CHEST 1 VIEW PORTABLE / 2022-09-21 12:45:00 Yvette Welsh [facility] ECG 12-LEAD 2022-09-21 12:42:26 Unknown, Hl7 Doctor [facility] ECG 12-LEAD 2022-09-21 12:42:26 Dangelo Meredith [facility] ECG 12-LEAD 2022-09-21 12:42:26 Unknown, Hl7 Doctor [facility] ECG 12-LEAD 2022-09-21 12:41:57 Unknown, Hl7 [facility] ECG 12-LEAD 2022-09-21 12:41:57 Unknown, Hl7 Doctor [facility] BLOOD GAS, ARTERIAL 2022-09-21 11:33:00 Brii Carey [facility] HIGH SENSITIVITY TROPONIN I 2022-09-21 11:30:00 Herb Carey [facility] CBC W/PLT COUNT & AUTO 2022-09-21 11:30:00 Brii Carey [facility] BASIC METABOLIC PANEL 2022-09-21 11:30:00 Brii Carey CH I [facility] LACTATE DEHYDROGENASE (LDH) 2022-09-21 11:30:00 [facility] PROTEIN, TOTAL 2022-09-21 11:30:00 [facility] CBC W/PLT COUNT & AUTO 2022-09-21 11:30:00 Brii Carey [facility] ECG 12-LEAD 2022-09-21 08:54:19 Unknown, Hl7 [facility] ECG 12-LEAD 2022-09-21 08:54:19 Ava Welsh [facility] ECG 12-LEAD 2022-09-21 08:54:19 Unknown, Hl7 [facility] BASIC METABOLIC PANEL 2022-09-21 04:17:00 Maria Aparicio [facility] CBC W/PLT COUNT & AUTO 2022-09-21 04:17:00 [facility] W/[facility]T COUNT & AUTO 2022-09-21 04:17:[address] [facility] HIGH SENSITIVITY TROPONIN I 2022-09-20 17:17:00 [facility] BASIC METABOLIC PANEL 2022-09-20 11:41:00 [facility] LIPID PANEL 2022-09-20 11:41:00 [facility] MAGNESIUM 2022-09-20 11:41:00 [facility] CBC W/PLT COUNT & AUTO 2022-09-20 11:41:[address] [facility] HIGH SENSITIVITY TROPONIN I 2022-09-20 11:41:00 [facility] IRON, TIBC, % SAT. (WITHOUT 2022-09-20 11:41:00 AparicioMaria bell [facility] 2022-09-20 11:41:00 AparicioMaria [facility] CBC W/PLT COUNT & AUTO 2022-09-20 11:41:00 [facility] ECHO W CONTRAST & DOPPLER 2022-09-20 07:54:10 [facility] URINALYSIS W/ MICROSCOPIC 2022-09-20 06:52:00 [facility] ECG 12-LEAD 2022-09-20 04:39:43 Unknown, Hl7 [facility] ECG 12-LEAD 2022-09-20 04:39:43 Unknown, Hl7 [facility] ECG 12-LEAD 2022-09-20 04:39:43 Unknown, Hl7 [facility] TRANSFUSE LEUKO-REDUCED RED 2022-09-20 02:31:00 [facility] BLOOD CELLS [facility] BLOOD CULTURE 2022-09-19 23:13:00 [facility] TYPE AND SCREEN, AUTOMATED 2022-09-19 23:12:00 [facility] HIGH SENSITIVITY TROPONIN I 2022-09-19 21:56:00 [facility] CBC W/PLT COUNT & AUTO 2022-09-19 21:56:00 [facility] DIFFERENTIAL [facility] COMPREHENSIVE METABOLIC 2022-09-19 21:56:00 [facility] PANEL [facility] LACTIC ACID, VENOUS 2022-09-19 21:56:00 [facility] B-TYPE NATRIURETIC FACTOR 2022-09-19 21:56:00 [facility] (BNP) [facility] HEMOGLOBIN A1C 2022-09-19 21:56:00 [facility] CBC W/PLT COUNT & AUTO 2022-09-19 21:56:00 [facility] XR CHEST 1 VIEW PORTABLE / 2022-09-19 21:11:[address] [facility] BEDSIDE [facility] CARDIAC CATH REPORT - SCAN 2022-09-19 00:00:00 Provider, Default [facility] ARRYTHMIA IMPLANT REPORT - 2022-09-19 00:00:00 Provider, Default [facility] CANCER ANTIGEN 125 2022-08-30 13:50:00 [facility] MAGNESIUM 2022-08-30 13:50:00 [facility] COMPREHENSIVE METABOLIC 2022-08-30 13:50:00 [facility] PANEL Medicine CBC W/AUTO DIFF WITH 2022-08-30 12:32:00 [facility] PLATELETS Medicine CBC W ABSOLUTE NEUTROPHIL 2022-08-30 06:39:00 [facility] COUNT Medicine COMPREHENSIVE METABOLIC 2022-08-30 06:39:00 [facility] PANEL Medicine PREPARE RBC 2022-08-26 23:54:00 Donis Cruz CHIk es [facility] IR CV ACCESS FLUORO 2022-08-22 15:59:[address] [facility] IR PORT-A-CATH PLACEMENT 2022-08-22 15:59:00 Donis Cruz [facility] ANG U/S GUIDANCE FOR 2022-08-22 15:59:00 Donis Cruz [facility] VASCULAR ACCESS [facility] US THORACENTESIS 2022-08-18 11:57:00 Donis Cruz [facility] XR CHEST 1 VIEW PORTABLE / 2022-08-18 11:55:00 Arin Landry [facility] CBC W/PLT COUNT & AUTO 2022-08-18 09:50:[address] [facility] PROTHROMBIN TIME/INR 2022-08-18 09:50:00 Arin Landry [facility] CBC W/PLT COUNT & AUTO 2022-08-18 09:50:00 Arin Landry [facility] ELECTROCARDIOGRAM COMPLETE 2022-08-15 14:55:00 B [facility] CT ABDOMEN/PELVIS WITH IV 2022-08-03 16:46:00 [facility] CT CHEST WITH IV CONTRAST 2022-08-03 16:46[facility]00 [facility]IONAL 2022-08-03 15:35:49 [facility] EXTERNAL Medicine AMB REF TO CARDIOLOGY 2022-08-03 15:33:11 [facility] CANCER ANTIGEN 125 2022-08-03 14:42:00 [facility] CBC W/AUTO DIFF WITH 2022-08-03 14:42:00 [facility] PLATELETS Medicine COMPREHENSIVE METABOLIC 2022-08-03 14:42:00 [facility] CANCER ANTIGEN 125 2022-08-03 14:15:18 [facility] CBC W/AUTO DIFF WITH 2022-08-03 14:15:18 [facility] COMPREHENSIVE METABOLIC 2022-08-03 14:15:18 [facility] [id number] 2022-05-25 00:00:00 DEBORAH [facility] [id number] 2022-05-25 00:00:00 DEBORAH [facility] [id number] 2022-05-25 00:00:00 PATMA.12 [facility] [id number] 2022-05-25 00:00:00 PATMA.12 [facility] [id number] 2022-05-18 00:00:00 MIGEL [facility] [id number] 2022-05-18 00:00:00 MIGEL [facility] [id number] 2022-05-18 00:00:00 MIGEL [facility] [id number] 2022-05-18 00:00:00 [facility] Planned Activity [...] [employer] [facility] 00:00:00 [code = 44632-5] 11/22/2022, of Medicine Expires: 11/15/2023 Future Scheduled 2022-11-22 CT ABDOMEN PELVIS W Expected: [employer] 00:00:00 CONTRAST [code = 11/22/2022, of Medicine 44950-5] Expires: 11/15/2023 Future Scheduled 2022-11-21 MEDICARE ANNUAL [...] enter SCREENING] Future Scheduled 2022-11-15 COVID-19 Vaccine [employer] [facility] 11:54:31 (#1) [code = of Medicine COVID-19 Vaccine (#1)] Future Scheduled 2022-11-15 Pneumococcal 65+ (1 [employer] [facility] 11:54:31 - PCV) [code = of Medicine Pneumococcal 65+ (1 - PCV)] Future Scheduled 2022-11-15 TETANUS SHOT (ADULT) [place] [employer] Test 11:54:31 [code = TETANUS SHOT of Medi cine (ADULT)] Future Scheduled 2022-11-15 ZOSTER VACCINE (1 of [place] [employer] Test 11:54:31 2) [code = ZOSTER of Medicin e VACCINE (1 of 2)] Future Scheduled 2022-11-15 FALL SCREEN [code = [employer] 11:54:31 FALL SCREEN] of Medicine Future Scheduled 2022-11-15 Screening for [facility] [employer] Test 11:54:31 osteoporosis of Medicine (procedure) [code = 001865166] Future Scheduled 2022-11-15 MEDICARE AWV [facility] [employer] Test 11:54:31 (Initial) [code = of Medicin e MEDICARE AWV (Initial)] Future Scheduled 2022-11-15 CREATININE,RANDOM Ordered: [facility] [employer] Test 11:33:26 URINE [code = 11/15/2022 of Medicine 2161-8] Future Scheduled 2022-11-15 SODIUM, RANDOM URINE Ordered: [facility] Test 11:33:26 [code = 07367] 11/15/2022 of Medicine Future Scheduled 2022-11-15 CULTURE, Ordered: [facility] [employer] 10:47:49 URINE/SENSITIVITY ON 11/15/2022 of Medi cine ALL [code = 69864-7] Future Scheduled 2022-10-31 COVID-19 Vaccine [facility] [employer] Test 08:18:44 (#1) [code = of Medicine COVID-19 Vaccine (#1)] Future Scheduled 2022-10-31 Pneumococcal 65+ (1 [employer] [facility] 08:18:44 - PCV) [code = of Medicine Pneumococcal 65+ (1 - PCV)] Future Scheduled 2022-10-31 TETANUS SHOT (ADULT) [place] [employer] Test 08:18:44 [code = TETANUS SHOT of Medi cine (ADULT)] Future Scheduled 2022-10-31 ZOSTER VACCINE (1 of [place] [employer] Test 08:18:44 2) [code = ZOSTER of Medicin e VACCINE (1 of 2)] Future Scheduled 2022-10-31 FALL SCREEN [code = [employer] 08:18:44 FALL SCREEN] of Medicine Future Scheduled 2022-10-31 Screening for [facility] [employer] Test 08:18:44 osteoporosis of Medicine (procedure) [code = 529664205] Future Scheduled 2022-10-31 MEDICARE AWV [employer] [facility] 08:18:44 (Initial) [code = of Medicin e MEDICARE AWV (Initial)] Future Scheduled 2022-10-25 COVID-19 Vaccine [employer] Test 10:49:42 (#1) [code = of Medicine COVID-19 Vaccine (#1)] Future Scheduled 2022-10-25 Pneumococcal 65+ (1 [employer] [facility] 10:49:42 - PCV) [code = of Medicine Pneumococcal 65+ (1 - PCV)] Future Scheduled 2022-10-25 TETANUS SHOT (ADULT) [place] [employer] Test 10:49:42 [code = TETANUS SHOT of Medi cine (ADULT)] Future Scheduled 2022-10-25 ZOSTER VACCINE (1 of [place] [employer] Test 10:49:42 2) [code = ZOSTER of Medicin e VACCINE (1 of 2)] Future Scheduled 2022-10-25 FALL SCREEN [code = [employer] 10:49:42 FALL SCREEN] of Medicine Future Scheduled 2022-10-25 Screening for [facility] Test 10:49:42 osteoporosis of Medicine (procedure) [code = 283685098] Future Scheduled 2022-10-25 MEDICARE AWV [facility] Test 10:49:42 (Initial) [code = of Medicin e MEDICARE AWV (Initial)] Future Scheduled 2022-10-18 COVID-19 Vaccine [facility] [employer] Test 08:34:34 (#1) [code = of Medicine COVID-19 Vaccine (#1)] Future Scheduled 2022-10-18 Pneumococcal 65+ (1 [employer] [facility] 08:34:34 - PCV) [code = of Medicine Pneumococcal 65+ (1 - PCV)] Future Scheduled 2022-10-18 TETANUS SHOT (ADULT) [employer] Test 08:34:34 [code = TETANUS SHOT of Medi cine (ADULT)] Future Scheduled 2022-10-18 ZOSTER VACCINE (1 of [place] [employer] Test 08:34:34 2) [code = ZOSTER of Medicin e VACCINE (1 of 2)] Future Scheduled 2022-10-18 FALL SCREEN [code = [employer] 08:34:34 FALL SCREEN] of Medicine Future Scheduled 2022-10-18 Screening for [employer] [facility] 08:34:34 osteoporosis of Medicine (procedure) [code = 784066095] Future Scheduled 2022-10-18 MEDICARE AWV [facility] Test 08:34:34 (Initial) [code = of Medicin e MEDICARE AWV (Initial)] Future Scheduled 2022-10-18 FLU VACCINE > 6 [facility] Test 08:34:34 MONTHS [code = FLU of Medici ne VACCINE > 6 MONTHS] Future Scheduled 2022-10-18 BASIC METABOLIC Ordered: [facility] Test 08:24:05 PANEL [code = 10/18/2022 of Medicine 79684-0] Future Scheduled 2022-08-30 ZOSTER VACCINE (1 of [place] [employer] Test 09:14:21 2) [code = ZOSTER of Medicin e VACCINE (1 of 2)] Future Scheduled 2022-08-30 FALL SCREEN [code = [employer] 09:14:21 FALL SCREEN] of Medicine Future Scheduled 2022-08-30 Screening for [facility] Test 09:14:21 osteoporosis of Medicine (procedure) [code = 048553457] Future Scheduled 2022-08-30 FLU VACCINE > 6 [facility] Test 09:14:21 MONTHS [code = FLU of Medici ne VACCINE > 6 MONTHS] Future Scheduled 2022-08-30 COVID-19 Vaccine [facility] Test 09:14:21 (#1) [code = of Medicine COVID-19 Vaccine (#1)] Future Scheduled 2022-08-30 Pneumococcal 65+ (1 [employer] [facility] 09:14:21 - PCV) [code = of Medicine Pneumococcal 65+ (1 - PCV)] Future Scheduled 2022-08-30 TETANUS SHOT (ADULT) [employer] Test 09:14:21 [code = TETANUS SHOT of Medi cine (ADULT)] Future Scheduled 2022-08-30 BMI FOLLOW UP PLAN [facility] [employer] Test 09:14:21 [code = BMI FOLLOW of Medici ne UP PLAN] Future Scheduled 2022-08-24 COVID-19 Vaccine [facility] [employer] Test 09:21:34 (#1) [code = of Medicine COVID-19 Vaccine (#1)] Future Scheduled 2022-08-24 Pneumococcal 65+ (1 [employer] [facility] 09:21:34 - PCV) [code = of Medicine Pneumococcal 65+ (1 - PCV)] Future Scheduled 2022-08-24 TETANUS SHOT (ADULT) [place] [employer] Test 09:21:34 [code = TETANUS SHOT of Medi cine (ADULT)] Future Scheduled 2022-08-24 BMI FOLLOW UP PLAN [facility] [employer] Test 09:21:34 [code = BMI FOLLOW of Medici ne UP PLAN] Future Scheduled 2022-08-24 ZOSTER VACCINE (1 of [facility] Test 09:21:34 2) [code = ZOSTER of Medicin e VACCINE (1 of 2)] Future Scheduled 2022-08-24 FALL SCREEN [code = [employer] 09:21:34 FALL SCREEN] of Medicine Future Scheduled 2022-08-24 Screening for [facility] Test 09:21:34 osteoporosis of Medicine (procedure) [code = 548677230] Future Scheduled 2022-08-24 FLU VACCINE > 6 [facility] Test 09:21:34 MONTHS [code [...] [facility] 00:[facility]00 ([facility]ELCOME TO [facility] MEDICARE) [code = Medicare IPPE (WELCOME TO MEDICARE)] Future Scheduled 2021-11-[address] [facility] Test 00:00:00 (12+) [code = Medical Center DEPRESSION SCREENING (12+)] Future Scheduled 2021-11-[address] [facility] Test 00:00:00 (WELCOME TO [facility] MEDICARE) [code = Medicare IPPE (WELCOME TO [...] [facility] 00:[facility]:00 of 2) [code = [facility] SHINGLES VACCINES (1 of 2)] Future Scheduled 1985 SHINGLES VACCINES ([address] [facility] Test 00:00:00 of 2) [code = [facility] SHINGLES VACCINES (1 of 2)] Future Scheduled 1985 SHINGLES VACCINES ([address] [facility] Test 00:00:00 of 2) [code = [facility] SHINGLES VACCINES (1 of 2)] Future Scheduled 1985 SHINGLES VACCINES ([address] [facility] Test 00:00:00 of 2) [code = [facility] SHINGLES VACCINES (1 of 2)] Future [...] Type Clinicians Facility Department ID 2022-08-21 Outpatient [facility] Surgery [id number] [facility] 21:50:53 2022-06-20 Outpatient [facility] [id number] [place] 11:40:[id number] [facility] 2022-06-16 Outpatient [facility] [id number] [place] 17:07:[id number] [facility] 2022-06-15 Outpatient [facility] [id number] [place] 16:25:[id number] [facility] 2022-05-18 Inpatient EM Rasdelmar, LUISANACL [id number] [facility] 14:24:00 Frank [id number] [facility] 2022-02-08 Outpatient [facility] [id number] Common 16:02:01 [facility] 2021-12-15 Outpatient [facility] [id number] Common 12:01:20 [id number] [facility] 2021-12-15 Outpatient [facility] [id number] Common 11:54:02 [id number] [facility] 2023-01-03 2023-01-03 Outpatient MAAG, [facility] [id number] [facility] 00:00:00 00:00:00 [facility]IE [facility] 2022-12-20 2022-12-20 Outpatient GC_BAHC_Tod PRIV PRIV [id number] [facility] 00:00:00 00:00:00 d_J [id number] Medica l 2022-12-19 2022-12-19 Outpatient VTCLAUDIA, [facility] [id number] [facility] 00:00:00 00:00:00 ROMIE [facility] 2022-12-06 2022-12-06 Outpatient [facility] [id number] [facility] 00:00:00 00:00:00 [facility] 2022-12-06 2022-12-06 Outpatient [facility] [id number] [facility] 00:00:00 00:00:00 [facility] 2022-11-22 2022-11-22 [facility] [id number] [facility] 09:13:02 23:59:00 Encounter [facility] 2022-11-22 2022-11-22 [facility] [id number] [facility] 09:13:02 23:59:00 Encounter [facility] 2022-11-22 2022-11-22 Outpatient [facility] [id number] SLE 09:13:02 23:59:00 [place] 2022-11-22 2022-11-22 Outpatient [facility] [id number] [facility] 09:12:38 09:12:38 [place] 2022-11-22 2022-11-22 [facility] [id number] [facility] 09:12:38 09:12:38 Encounter Donis toscano [facility] 2022-11-22 2022-11-22 [facility] [id number] 09:12:38 09:12:38 Encounter Donis toscano [facility] 2022-11-15 2022-11-15 Outpatient [facility] [id number] [facility] 11:21:35 23:59:00 [facility] 2022-11-15 2022-11-[address] [facility] [id number] [facility] 10:18:30 15:34:27 Visit DONIS Lennon 350.1.13.21 Co llege 0.2.7.2.686 of [id number] Medi rafael 520 e 2022-11-15 2022-11-15 Outpatient [facility] [id number] [facility] 00:00:00 00:00:00 [facility] 2022-11-15 2022-11-15 [facility] [id number] 00:00:00 00:00:00 Only [facility] 2022-11-15 2022-11-15 [facility] [id number] 00:00:00 00:00:00 Only [facility] 2022-11-02 2022-11-02 [facility] [id number] 07:58:00 13:01:00 Encounter [facility] 2022-11-02 2022-11-02 [facility] [id number] 07:58:00 13:01:00 Encounter [facility] 2022-11-02 2022-11-02 Outpatient TERESA [facility] Surgery [id number] [facility] 07:58:00 13:01:00 [facility] 2022-11-02 2022-11-[address] [facility] [id number] 09:15:00 10:51:00 [facility] 2022-11-02 2022-11-02 Surgery Safi, [facility] [id number] 09:15:00 10:51:00 [facility] 2022-11-02 2022-11-02 Anesthesia Herborn, [facility] [id number] 09:10:00 09:10:00 Event [facility] 2022-11-02 2022-11-02 Anesthesia Herborn, [facility] [id number] 09:10:00 09:10:00 Event [facility] 2022-11-02 2022-11-02 Travel [facility] [id number] [facility] 00:00:00 00:00:00 [facility] 2022-11-02 2022-11-02 Travel [facility] [id number] [facility] 00:00:00 00:00:00 [facility] 2022-10-26 2022-10-26 Outpatient ANTONIETTA, [facility] [id number] [facility] 00:00:00 00:00:00 MIHAIL [facility] 2022-10-25 2022-10-25 Outpatient [facility] [id number] [facility] 09:16:27 23:59:00 [facility] 2022-10-25 2022-10-25 Office [facility] [id number] [facility] 07:46:25 10:11:24 Visit DONIS Lennon 350.1.13.21 Co llege 0.2.7.2.686 of [id number] Medi rafael 520 e 2022-10-25 2022-10-25 Outpatient [facility] [id number] [facility] 00:00:00 00:00:00 [facility] 2022-10-18 2022-10-19 Office DEBORAH Moroe [id number] [facility] 14:30:00 08:13:27 Visit Jordan GRIMES 350.1.13.21 College Y 0.2.7.2.686 of [id number] Medi rafael 380 e 2022-10-18 2022-10-18 Office DEBORAH Rossi [id number] [id number] [facility] 08:00:00 08:34:47 Visit Romie Lovett AMBULATOR 350.1.13.21 College Y 0.2.7.2.686 of [id number] Medi rafael 375 e 2022-10-11 2022-10-11 Outpatient EL SLE SLE [id number] SLE 11:59:07 11:59:07 2022-10-11 2022-10-11 Outpatient EL SLEH SLEH [id number] [facility] 11:53:04 11:53:04 2022-10-07 2022-10-10 [facility] Lb Fong [facility] [id number] [facility] 20:46:00 17:12:00 Encounter Minal Joy [facility] 2022-10-07 2022-10-10 [facility] Lb Fong [facility] [id number] [facility] 20:46:00 17:12:00 Encounter Minal Joy [facility] 2022-10-07 2022-10-10 Inpatient ER BENITA [facility] [id number] SLE 20:46:00 17:12:00 [facility] 2022-10-09 2022-10-09 Outpatient [facility] [id number] [facility] 00:00:00 23:59:00 Enmanuel 2022-10-08 2022-10-08 Travel [facility] [id number] [facility] 00:00:00 00:00:00 [facility] 2022-10-08 2022-10-08 Travel [facility] [id number] [facility] 00:00:00 00:00:00 [facility] 2022-09-19 2022-09-28 [facility] Jimy Pepper [facility] [id number] 20:04:00 18:00:00 Encounter Maria Apariciolkarni, [facility], Minal Jiang Carolann Deisy 2022-09-19 2022-09-28 [facility] Jimy Pepper [facility] [id number] 20:04:00 18:00:00 Encounter Markus Mariamecca Mazael marco antonio Carey, [facility], Shahram Singerher Deisy 2022-09-19 2022-09-28 Inpatient ER [facility] Cardiac ICU [id number] [facility] 20:04:00 18:00:00 CAROLANN 2022-09-27 2022-09-27 Anesthesia Creo, [facility] [id number] 13:30:00 17:09:00 Event [facility] 2022-09-27 2022-09-27 Anesthesia Creo, [facility] [id number] 13:30:00 17:09:00 Event [facility] 2022-09-27 2022-09-27 Surgery Chelu, [facility] [id number] 14:45:00 16:38:00 [facility] 2022-09-27 2022-09-27 Surgery Chelu, [facility] [id number] 14:45:00 16:38:00 [facility] 2022-09-21 2022-09-[address] [facility] [id number] 00:00:00 00:00:00 [facility] 2022-09-21 2022-09-[address] [facility] [id number] 00:00:00 00:00:00 [facility] 2022-09-20 2022-09-20 Outpatient [facility] [id number] [facility] 00:00:00 23:59:00 Enmanuel 2022-09-20 2022-09-20 Travel [facility] [id number] [facility] 00:00:00 00:00:00 [facility] 2022-09-20 2022-09-20 Travel [facility] [id number] [facility] 00:00:00 00:00:00 [facility] 2022-09-19 2022-09-19 Outpatient [facility] [id number] [facility] 20:04:00 23:59:00 [facility] 2022-08-30 2022-08-30 Outpatient [facility] [id number] [facility] 12:46:22 23:59:00 [facility] 2022-08-30 2022-08-30 Office DEBORAH Rossi 1.2.840.114 [id number] [facility] 08:20:00 09:15:54 Visit Romie Rachell AMBULATOR 350.1.13.21 College Y 0.2.7.2.686 [id number] Medi rafael 375 e 2022-08-25 2022-08-25 Emergency ER SLEH Emergency [id number] SLE 09:15:00 23:00:00 2022-08-25 2022-08-[address] [facility] [id number] [facility] 09:15:00 23:00:00 [facility] 2022-08-25 2022-08-[address] [facility] [id number] 09:15:00 23:00:00 [facility] 2022-08-25 2022-08-25 [facility] [id number] 08:30:00 14:30:00 [facility] 2022-08-25 2022-08-25 Infusion Anthony, [facility] [id number] 08:30:00 14:30:00 [facility] 2022-08-24 2022-08-24 Outpatient [facility] [id number] [facility] 00:00:00 23:59:00 [facility] 2022-08-24 2022-08-[address] [facility] [id number] 11:30:00 11:45:00 [facility] 2022-08-24 2022-08-24 [facility] [id number] 11:30:00 11:45:00 Donis [facility] 2022-08-24 2022-08-[address] [facility] [id number] [facility] 07:03:08 10:10:49 Visit DONIS Citlalli 350.1.13.21 Co srinivas 0.2.7.2.686 [id number] [facility] rafael 520 e 2022-10-10 2022-08-22 Outpatient ANTHONY, [facility] SLE [id number] SLE 10:03:34 23:59:00 DONIS 2022-08-22 2022-08-22 [facility] [id number] 11:00:00 23:59:00 Encounter [facility] 2022-08-22 2022-08-22 [facility] [id number] 11:00:00 23:59:00 Encounter [facility] 2022-08-22 2022-08-22 Surgery Virtual, [facility] [id number] 08:52:00 09:31:00 [facility] 2022-08-22 2022-08-22 Surgery [facility], [facility] [id number] 08:52:00 09:31:00 [facility] 2022-08-22 2022-08-22 [facility] [id number] 08:52:00 08:52:00 [facility]counter [facility] 2022-08-22 2022-08-22 [facility] [id number] 08:52:00 08:52:00 Encounter [facility] 2022-08-18 2022-08-18 [facility] [id number] 09:33:59 23:59:00 Encounter [facility] 2022-08-18 2022-08-18 [facility] [id number] 09:33:59 23:59:00 Encounter [facility] 2022-08-18 2022-08-18 Outpatient MARKOS CRUZ [facility] SLE [id number] SLEH 09:33:59 23:59:00 DONIS 2022-08-18 2022-08-18 [facility] [id number] 09:45:00 10:00:00 Only [facility] 2022-08-18 2022-08-18 [facility] [id number] 09:45:00 10:00:00 Only [facility] 2022-08-18 2022-08-18 Outpatient MARKOS [facility] SLE [id number] [facility]H 09:45:07 09:45:07 2022-08-15 2022-08-15 Outpatient DEBORAH SHARPE [facility] [id number] [facility] 14:14:24 15:12:10 ISAIAS Ld e of Medicin e 2022-08-15 2022-08-15 Outpatient [facility] [id number] [facility] 11:34:29 11:34:29 Deannag e of Medicin e 2022-08-15 2022-08-15 [facility] [id number] 00:00:00 00:00:00 Orders [facility] 2022-08-15 2022-08-15 [facility] [id number] 00:00:00 00:00:00 Orders [facility] 2022-08-09 2022-08-09 [facility] [id number] 00:00:00 00:00:00 Only [facility] 2022-08-09 2022-08-09 [facility] [id number] 00:00:00 00:00:00 Only [facility] 2022-08-03 2022-08-[address] [facility] [id number] [facility] 16:03:45 23:59:00 [facility] 2022-08-03 2022-08-03 [facility] Donis Cruz [facility] [id number] [facility] 16:03:45 23:59:00 Encounter [facility] 2022-08-03 2022-08-03 Outpatient MARKOS CRUZ SLE[facility] SLE [id number] [facility] 16:03:45 23:59:00 [place] 2022-08-03 [facility]22-08-[facility] [id number] [facility] 16:01:08 16:02:00 [facility] 2022-08-03 2022-08-03 [facility] [id number] [facility] 16:01:08 16:02:00 Encounter 1[facility] 2022-08-03 2022-08-03 Outpatient MARKOS CRUZ SLEH SLE [id number] SLE 16:01:08 16:02:00 [place] 2022-08-03 2022-08-03 Outpatient DEBORAH CRUZ [facility] [id number] [facility] 13:15:55 15:15:43 DONIS hernandez of Medicin e 2022-08-03 2022-08-03 Outside [facility], [facility] [id number] 00:00:00 00:00:00 Orders [facility] 2022-08-03 2022-08-03 Outside [facility], [facility] [id number] 00:00:00 00:00:00 Orders [facility] 2022-07-13 2022-07-13 Outpatient SINGH, [facility] [id number] UT 14:00:00 14:00:00 [facility] 2022-06-13 2022-06-17 Inpatient [facility] [id number] [facility] 00:20:04 22:00:00 r Tomas 00 l [facility] 2022-06-13 2022-06-17 Inpatient [facility] [id number] [facility] 00:20:04 22:00:00 r Tomas 00 l [facility] 2022-06-13 2022-06-17 Inpatient E SHANEKA, [facility] [id number] 01:02:00 17:00:00 [facility] 2022-06-12 2022-06-17 Outpatient Shaneka, [facility] [place] [id number] 19:20:04 17:00:00 Chapis 00 2022-06-12 2022-06-12 Outpatient Naveen, [facility] SE [id number] 19:20:04 19:20:04 [facility] [address] [facility] 2022-06-03 2022-06-03 [place] [id number] [facility] 07:17:00 07:17:00 0715 Medica l Group 2022-05-20 2022-05-26 Inpatient EM Ariella Shaffer HCACL INTE.02 [id number] 14:05:00 14:06:00 93 [facility] 2022-05-20 2022-05-26 Inpatient EM Indy HCACL INTE.02 [id number] [facility] 14:05:00 14:06:00 Frank [id number] [facility] 2021-11-11 2021-11-11 [place] [id number] [facility] 10:30:00 10:30:00 1223 Medica l Group 2021-05-17 2021-05-17 Outpatient Love-Mbayo VFP VFP [id number] [facility] 02:54:00 02:54:00 _A_AH 82318 Family Practic e 2021-02-22 2021-02-22 Outpatient Canales_M DMG DMG [id number] [facility] 11:38:00 11:38:00 0405 Medica l Group 2021-02-22 2021-02-22 Iliana [facility] [place] - [id number] D evoted 00:00:00 00:00:00 Mary Sam Medica l [facility] [employer]: [address] [facility] [address], [place] [address] , Ph. 2021-02-22 2021-02-22 Outpatient ASHLYN Hollins [facility] [id number] 00:00:00 00:00:00 Iliana [id number] Mary [id number] 2021-02-19 2021-02-19 Outpatient Gurvinder_Patricia [facility] [id number] [facility] 11:15:00 11:15:00 0402 Medica l Group 2020-10-06 2020-10-06 (IN/ASP) STLC STLC [id number] C ommon 00:00:00 00:00:00 INJ ASP [facility] 2020-09-29 2020-09-29 (IN/ASP) [facility] [id number] C ommon 00:00:00 00:00:00 INJ ASP [facility] - [facility] 2020-09-22 2020-09-22 (IN/ASP) [facility] STLC [id number] C ommon 00:00:00 00:00:00 INJ ASP [facility] 2020-09-10 2020-09-10 OFFICE [facility] [id number] Co mmon 00:00:00 00:00:00 VISIT EST Spir it PT LEVEL 3 - [facility] 2020-05-19 2020-05-19 Outpatient [facility] [id number] Common 08:30:00 08:30:00 t Bone Bone and Spiri t and Joint Joint - [facility] 2020-04-30 2020-04-30 Outpatient Love-Mbayo VFP VFP [id number] Village 11:59:00 11:59:00 _A_AH 12588 Family Practic e 2020-04-20 2020-04-20 Outpatient Love-Mbayo VFP VFP [id number] 06:26:00 06:26:00 _A_AH 01260 Family Practic e 2020-03-30 2020-03-30 Outpatient Love-Mbayo VFP VFP [id number] 02:45:00 02:45:00 _A_AH 87125 Family Practic e 2020-02-24 2020-02-24 Outpatient [facility] [id number] Common 14:30:00 14:30:00 t Bone Bone and Spiri t and Joint Joint - [facility] 2020-02-18 2020-02-18 Rachel VFP [place] - [id number] V illage 00:00:00 00:00:00 LoveJessie [facility] Evelio munguia [employer]: Medical - Practi c [address] Malathi [email or web address]_ e [facility], [address], [place] [address] , Ph. 2020-01-29 2020-01-29 Outpatient [facility] [id number] Common 14:19:00 14:19:00 t Bone Bone and Spiri t and Joint Joint - [facility] 2020-01-28 2020-01-28 Outpatient [facility] [id number] Common 10:45:00 10:45:00 t Bone Bone and Spiri t and Joint Joint - [facility] 2020-01-08 2020-01-08 Outpatient Cachorro [facility] [address] [place] [address] 07:20:00 07:20:00 _A_AH 78636 Family Practic e 2019-06-12 2019-06-12 Outpatient [facility] [id number] Common 11:07:00 11:07:00 t Bone Bone and Spiri t and Joint Joint - [facility] 2019-06-06 2019-06-06 Outpatient [facility] [id number] Common 10:00:00 10:00:00 t Bone Bone and Spiri t and Joint Joint - [facility] 2019-05-20 2019-05-20 Outpatient [facility] [id number] Common 09:30:00 09:30:00 t Bone Bone and Spiri t and Joint Joint - [facility] Results Test Description Test Time Test Comments Results Result [facility] e Comments CT, ABDOMEN Ovarian cancer, s/p 3 3 cycles of 12:54:00 chemotherapy, assess treatment YOHAN [facility] - responseRelease to MEDICAL CENTERName: patient->ImmediateWh MINAL SLOAN YOHAN / [facility] VALDERR[facility] : [facility] radiology 1935 Sex: location is [...] carcinomatosis.3. Diverticulosis without diverticulitis. Signed: Paty Vuong Verified Date/Time: 11/22/2022 12:54:18 Reading Location: [facility] C013Y CT Body Reading Room , CHEST, WITH Ovarian cancer, s/p CONTRAST 3 3 cycles of 12:54:00 chemotherapy, assess treatment [facility] responseRelease to MEDICAL CENTERName: patient->SantinoWh MINAL SLOAN chelsy ALMNAZAR / [facility] : [facility] 1935 Sex: location is F [...] MDReport Verified Date/Time: 11/22/2022 12:54:18 Reading Location: [facility] B1 C013Y CT Body Reading Room -Creatinine 2022-11-22 11:40:54 Test Item Value Reference Range Interpretation Comme [facility] POC-Creatinine (test code = 1.0 mg/dL 0.6-1.3 : TESTED AT [facility] [address] [facility] [address]-3) [facility], [facility] 30: Equity Trader/Techni norm ID = [id number] for Cassidy Damico POC-EGFR (test code = 55 mL/min/1.73M2 Inte rpretation of eGFR Values 76233-4) Stage Descripti on Result G1 Normal or [...] s not applicable for dialysis yasmany comer [facility]239[facility] 11:40:54 Test Item Value Reference Range Interpretation Comments POC-Creatinine 1.0 mg/dL 0.6-1.3 : TESTED AT [place] [address] (test code = [facility], [address]: 50104-6) Equity Trader/Techni norm ID = [id number] for Shelby Coker POC-EGFR (test 55 mL/min/1.73M2 Interpretat ion of eGFR code = 09449-6) Values Stage Description Result G1 Dionne l or high >=90 G2 Mildly decreased 60-89 G3a Mildl y to moderately 45-5 9 G3b Moderately to s dave 30-44 G4 Severely de creased 15-29 G5 Kidney Failure <15Reported eGF R is based on the CKD-EPI 1 equation that d oes not use a race coeffici ent Estimated GFR i s not as accurate as Cre atinine Clearance in pr edicting glomerular filt ration rate. Estimated GFR i s not applicable for dialysis patients [facility] CenterYvvtlcyvif4805-37-09 11:40:54 Test Item Value Reference Range Interpretation Comments POC-Creatinine 1.0 mg/dL 0.6-1.3 : TESTED AT [place] [address] (test code = [facility], [address]: 97196-9) Equity Trader/Techni norm ID = [id number] for Shelby Coker POC-EGFR (test 55 mL/min/1.73M2 Interpretat ion of eGFR code = 92307-3) Values Stage Description Result G1 Dionne l [...] i s not applicable for dialysis patients [facility]lr[facility]-[id number] 11:40:54 Test Item Value Reference Range Interpretation Comments POC-CREATININ 1.0 mg/dL 0.6-1.3 : TESTED AT [facility] [address]) [place], [address]: (test code = Equity Trader/Techni norm ID = [id number]) [id number] for Shelby Coker POC-EGFR 55 Interpretatio n of eGFR ([facility] mL/min/1.73M2 Values Stage D escription (test code = Result G1 Dinone l or high 1860) >=90 G2 Mildly [...] patien ts RAD, CHEST, 1 VIEW, NON [id number] 11:41:00Reason for exam:->Post tunneled pleural catheter placementShould this be performed at the bedside? ->[facility] MINAL SLONA : 1935 Sex: FFINAL REPORT RAD, CHEST, 1 VIEW, NON DEPT INDICATION: Post tunneled pleural catheter placement COMPARISON: Prior day's exam FINDINGS: Portable frontal view of the chest. IMPRESSION: Support Lines: Port-A-Cath tip overlies the atriocaval junction. Pacer device. Left chest tube. Lungs and pleura: Hazy bilateral interstitial opacities are decreased from prior exam No significant pneumothorax. Heart and mediastinum: Stable contours. Stable surgical changes. Additional findings: None. Signed: Areli Pollack Verified Date/Time: 11/02/2022 11:41:50 Reading Location: [address] Reading Room [id number] 15:38:03 Test Item Value Reference Range Interpretation Comments Case Report (test code Medical Cytology = 104) Report Case: [id number] Authorizing Provider: Minal Joy MD Collected: 10/08/2022 02:53 PM Ordering Location: [address] Received: 10/10/2022 09:36 AM Service Pathologist: Jimena Anton MD Specimen: Pleural, Left DIAGNOSIS (test code = [id number] 3220) FuZzEwMzNcZnRuYmpcdWMx IHtccnRmMVxlcGljOTYwMl urczDyYUJefGWxQ2Bnsnrd VCrhTD6iHH5xsDyeuGKhbY JtSUDdTwLzm2tzt017zGXi u6quHWBGqvdctZu4jJzpI9 6oj8Q6RdwwU73drRPcPRG4 NBMuMUFlzRBrWIHgHWB3DO IrxKOeM8leVVNaBB1gucaf RJsnWJguHCGdwGY5YLJqvP UvX3BrTJZdROepQSYkkiz2 JnAxJb6vmIShgQwuMBzaWO JkXHBsYWluXGZzMjAgTEVG VCBQTEVVUkFMIEZMVUlEIC fHDKPAA5ZUTxBaMH2BXAFS SUyjWraGZ1cpNjxknC8iLV SiCB6uCIDPIyIrSJRJAQpH KHxqR9AKBFJiYSDDT3LBN3 pDTPNjTi4XNC8SAIxOYyCX Z9vdIDRWIFNNK05TFR6BIV nlTVL4v2mfkMYaGDYwqCPy ODAwMFxhbnNpXGRlZmxhbm akDUSdJZH3ywNqYZGhHCfo UKMlYMmpGa0gjXFtpLauAi JsSXPlo8jmryBTggrjfVg2 f0mzILXoFxV4cBQaUXdyJ6 lzljXvhCKnGRIbYSf4cY97 ACGmcR9wjAJjWMymomRaZa A7QVgsTNHgWbN2JVPsrLTx DFGrH4qsAQZzNFtdKMAcEU nqpNOySHQ0cVqdq5R5nDFu aGVldHtcZjBcZnMyMiBOb3 AvRPa8xLsdE0WlOYJmPiM2 bHQgUGFyYWdyYXBoIEZvbn T3aQ57TFzitoK1oJFbp9Cz u44ap368xQ2jnHPsKJW0LJ FzBYHjbSGaAVMxFMB8SREw hHDaH9kwXKPvAQ1whxtzJM vhGVvnLDCzkIA1XJPxqAJf F8BnJGFtLIexDBJqybm1Gz VeHr3gyEIgfDylLOudz7pm d2dytJQoYlc6BYUqUvRnBn wmPFsju7Gox2foLYAcpu7u LFF9cBZbcMwud9V3tOWpTM KusKCoHHTqMV4rxHIyEPSj tD6oobwkIDJgLcJolalmFE RyxWerpwBmVk7ooFrsXDG3 JKmeY6lpwZ8jLnX4PTpjE1 zgwG2wZQu8NNhdRMKmgHV5 ztN9BSQuaIZcZ7BcuH6cBS SeSW4kgyw1r4caXSG1EJuh DYTqAgB6xiU7JDOabJRxCD LrmJmhQHwbh056QNR7EqAc EAExu0FuR0OrbUybR91sdI poZ47vJSFetTpiyG8myFhx kJ2sKuDoJaYiQUejdMdjLL 9dDFHpU3fyjUQbHZZuBPRd S6eyUfJjxF3brDkeMXeorf SwASAfOfn7FEHsjXXjXLDe Lqi1UVKxMNEcQ38kdphaXQ H5xC1wa0hio0QvYZwoKCB4 SPRhw63vLZrhmiM2LPowKx 32OYdhNMG0KMasYPL5iL== COMMENT (test code = u7srtYJnWWNujPK9HcOzKU 1091) Ajd3cfz0BinJVtaKThNEed qKDdxdRdiz42wTY0tF58UQ 3aQILkUrM5PPFdkxI3Dkp3 UYNnCOYlgGAdI467r7ppc8 wevxXqlDK0mBttDDKzdhcy UtX1DXryMQDqlhvaLDw6RO uoRBHxqWM0EAYygLJvT9Wk RHGwJK8hvag7YAY4XOdrWA PjXnK4TRGlmLIhQIXamUaa CNhrs970CGP1AtJnLLCxhp TlwMpwhC2pTaZgKKXDoLSl d0HbY3blPL1ifUZpG08uqZ 3tANZto8HugnYaQ1UcdeWr cYRvc5UrHOmeNSmmQ4VprO WxKZ4sMUWdxu3nuHHqcN0h wICdtPP5kP3iJbDLydT3pQ CxX4RmwOLkgU0ugcLyDIQb rvevbNcpCG1mXVU8jBdyDI vuZ0XurYOwj1OqOILhmEcl bGlhbCBjZWxscyBpcyBpZG JbyUrgySAkSBEeFBVrw6Ut wZ4fPQXnm4a5yULvbBhnNg 1aAMXitT32PVCMH5YaJLzn JuNaSDYsXB7qRJvwb8GzN9 LajZKcKOGrCD3rtCKhOSWe gYk0OVujED42lYVpPDBbn1 7byHsbZRE6iL3lbChoaenm ZiC2VODzbeKcWRYvy4Iuw4 0tGDLll6A8WNdeGfIVtMSl ZWZvcmUsIHRoZXNlIGZpbm RpbmdzIGFyZSBpbnRlcnBy ZXRlZCBhcyBhdHlwaWNhbC MzKTzsvtcny0GkiWgrwG83 kiLgf7UxlRZsoAtoFD3kxL 8wVBQxtjifGHWoGw3mK2Vc NLSCCEVoh33slWBlWBnwnW tuaSskp9XqWvigLNeqZ2Wk XHBhcn0= CPT Code(s) (test code f0azaLVxAEGbxTQ3CfXmXN = 3357) Zwt1lkt2ChuNWauOIyESpb iSRhdeNgzq50uCK9fH36SB 8zWWCvTiV0OVEwzgI4Dlk5 DPFvELJlzOWhH201d2qqs3 mlbrQomOC1pWnpKJGpfdto VlP9ESwvSYCjmzsbJLp6VE ivZXCmqFG3ZATieENwD4Cf UNOcSJ9wnjw1MVC8HOsfYP MpAdK0YFHufKPwUAUnmEbq UPocu192USI7DsSuNYXcjt GbgJhamN5kNcIuYBM8DQQl ZCriEUcgVANtNQl6IpJiXD B0UHU5MStzEESeyy0= CLINICAL DATA (test q1ohaWMrUCCnvWR0DtQlSP code = 3355) Tcu9nir3LdcVHoxCEaSHfq qYEyryXtsz29eWX4yX42MM 4xMUDuVqL4PSQgujI2Foj9 NQGvDOYphDLtG670n4sqj9 umenKsoWB6WPCtCJMoX3Lf CC2iLMDfjXVsU28inMZcCY A5QWIfZDMjjURrUWFqBFA4 PKZkcAQcD7nkAVNfLV4gml dlOTizZUolMGPwuLQ0GWCv yDWaJ2AlLYYrKUrsZRTeoe d8WnHsVn6dcEPosMesQTlm YXJkXHBsYWluXGZzMjBcY2 PiYOu2LRebqn4leeVmnXTl ZVx+g2f2uPOYATvpv1WmZM 5IRnJFRiAoRUYgNDAtNDQl EAocL4DOOVUwHGDqNtndaX S3IQT7ILVdEwXtvsHtiSUx IGNhbmNlciwgXGNmMCBtYW jwW92ntgApeLpouPAjyFUa JaW7r0curuJrHCYwti7tjF TltSbjn9opTaBwQKHioUGr vI1omTGwEYzmfGRaEJxjav AyTCBOQyksXGNmMVx+cmVj FQ07DHSbnIe9HRMlqxMhQ8 M3XRJhjnFddGHjxhpqKNTc nmXnXVbmwRLcQP5iMTQoBq WbNuGcDGQuCusaPjEvCM0o P4ZiBFLwPINefpWsQLDnLC EgdHJhbnNmZXIgZnJvbSBC ecQ9b3Gdp9Z4YESfhhYveZ Q2iSOjDAJ7NYy2XXCoe49t x0VtQLLus86pXR6pNFVvAF CMQTPdKM9diWAcpG== SPECIMEN SOURCE (test j9mrpVOqELBotAI7EnRrLY code = 3377) Uoq4khi9BwiUNcgADrXVes qOBtlsUmmb04mTI3zL21KG 1pHUVtLxX8HFRzoiN9Hnp2 MFJxYTSmoXHpE043w8gkt6 ivqyXzuYK5sUhbSTUbonay VeS3KLcmLUMeoimqJQa6QJ agNCZgvTZ2WEBrmYPxV9Yu YWScLF3azlj0STV8YDtxEJ EpKlE6CSGtoSGgKLNqaXqm CVmhd021UQE4HvPgTZMqcu KnwLfiiU3bFdSnADXQPUXL IFBMRVVSQUwgRkxVSURccG FyfQ== GROSS DESCRIPTION (test g7dsrZCvGXCcbJNIDGRnH6 code = [id number]) vcjxHeMFWouXMyR6Fgjtgb ZLabTW5tTD4vnFyirSRlrW FsGD3LGTHfIfKdRIMwwVYf nrDuYiOkVSAtoFZvhDM8FG BaTL6jfvduDExmCQosAPOj iuF6ACWqgLIaO2PbTCYcZZ 8gaebyRRE4UOmcbA2galMC IqaaIz3thSOmbKgkXpMgSy NoYXJzZXQwXGZuaWwgQXJp USe4mD7HTpfuBKY5THJUOm fqHPKrPM0In6vwVZMwvUDa SSB2KMllaZJvAJTiKLFcXC g0HKYzJGeqeCYpDO4mkPdl DaorrFnsa7VqwFQrPHgdGO MyUKDwPIotNQTmVQ4YNvAu ENUuWQMxDGctIPj7TWn7AW 9WUyAiICAzMTAxNzIwNiIg XMf7JCehKH5LXOMcHAv7BX ysOaL8ZHR4YrWfUIGjClUf XGYgQXJpYWwgXFxmbCBcXG 0ngZvkjGUmgtIBZzNTqOY8 azBiLXVKQNT1EkwqRBIvGK zgYVCzG39lg4HZp5BlHR5N PVe0mxBarwktqL4iBVZggk RtCYofgZWuI4diNoFvMBTM HCZbaHPaAPX5HCDjqMnnOA FtYmVyIGZsdWlkOyBwcmVw VBEbKQZ6RIR1uT4xuWfrxd EnkdBeP4ZvuMYxyC9rumrV QlsuJYEaz3FawSbiSFXmiK ehIhjxZ3las9KmzBIcNGTd aFYwhplhfFQdAEIhVez0SC RydnPrcW6whAyqVKD6jHRu lrBjXCZjc88gUBUaxIsaEB MxXNDnuSP3RVKaGuc9LPAv nA2zDg7iaJYhcI3fGNZkWI O7OEDwrZ0mr70tGTSoTnRx MjAyMiANClxwbGFpblxlcG fpEyFwgQObFcUyxBezgG55 RATvlVYhGNX5LX4xPTSnhk gbWXWcCABhPRS7CMlehJ31 fHPoFPSjMEXyoIDmkH8MWI MjQOO6SFfhzM53vHNzSD3J KJYxQGF6LEQmiTZeTFV3RJ 7arH6DpM== MICROSCOPIC DESCRIPTION s7pqfIWrXZVkoGR7UfYfXO (test code = 3371) Lvp6zad3VxrCSpyUInYHyx mJDbbiFmqa98hKM7eH54NJ 0uMBLhRuF0MRLcxjA0Rjk5 CSMxFQBmlKCkG932i0yjz9 twctKzuWM3nMbrYFAmrdyw DqQ2WZayFWTwkdvrDKk7VL ugUBThhRT7QGAzgDUaT5Ry LTAwBM1cune4FPD1AQrdMN AtMgQ9STPqeDLnEBXjbQgz JMkdy484HUI9BkBeBHKukg UpoHuirH0bHkKxTHAJJOZt a0WiXCDvLEsySWA7 STATEMENT OF ADEQUACY Satisfactory (test code = 2757) SPECIAL STUDIES (test b8xlhLGxUCMfp7bfSSVkcB code = 3376) FuZzEwMzNcZnRuYmpcdWMx FIgdbbHzCQhoi0IqG9SoZa AwMFxhbnNpXGRlZmxhbmcx AESmVAG6yrNoWHUhCXegKZ QdXQwaTc5btBEdtXjkMkYg KNMxr8skqcBEgrzxyZj5f5 qeKHRrRzG0fZVlKFpfJ1yn saDmuAPaC8MluIKpeJw0b1 xeKkYnVsR8yHUbQCueL5sd qoSjnETyLREpOYa9dT13AU CmbX6iiYZnCExlxvUvZfP8 BUcoTOKpIpF3LJTesZVwFD ZuH5zcNIIiDTtoZZRkEAyo qLOqTQM2lWwiq9L8uICszF LbeUihNlOrXgXgTdOHs9Jx CLl8rVpdH3IhVGGaOtR8fO QgUGFyYWdyYXBoIEZvbnQ7 oQyrphMpd01dwNGvVWJuNV AhPfElnCiyKDXdZQGJh7Sj vYueUNQ9eFe9cOinJviyZK C7Zpc8QM7huu24hbi6mYvi YYNhddjbVgI4BIpsMLNohm gmOTl2SPnpLBVaaBK9CBCc zBXnD9LyCGQfIK1rtzs3BQ Z5UXqoBJYuPkM7GGNtcYBa JOVdkUssXVlmf446HYS7Uy VnIJ6lI5Usl4Z9bB2gfSId QEGuzNYbUpFyUXNkyz7pqM EbBPklq2MpZOM6umP6zWBj bVFfZZPzYL76Ahnnx6MhJn ddn5PnG79teHR3NIeza3py TD6iGqE0txEeNXukm7tyhB 6vIuU5OXnaQT9qEY5fBRKc cJ2qayjqFYDbKqDhgwayRC LjuVkgfaEyMg1ufGdbXDS5 QScsZ4gpeD3zZqZ0UJjhY1 deoR9gXMe0OMjzmHM0CPYy dQ9jUE2giaria9foAJysIT yeBWXnmhK8azS3BOXiqWMn G1IkbZ2gDUArIR8halgur6 wvSPH8KMrgPDFeNXA0VrMp SPWwl9Quwjo2EyLui9JjoD QvYDmrY13hk107AQLzkwVi I1yyjFAglmgpdASoqvykDV gmiaB9WMQkVVEbAXhjUETq XGZzMjJcbGFuZzEwMzNcaG ljaFxmMVxkYmNoXGYxXGxv I6fbIrQvH3KzUTZrTxGmMQ eiYWnnoIEcuEHgzSW1aJ4u WH5qDYAgoTEnL1RnURSigv AbnGLyVWL8vISehZLuMM6t NNnoiYSlc9gts6XtB2shmM wbaTP2MD2aDKQxRZBrDAkj a0TksY4hVjazjBQkzfkxLC xmczIyXGxhbmcxMDMzXGhp U0ddKiJiCZIppAxlTStur8 NoXGYxXGNmMlxmczIyXGx0 cmNoXHBhclxwYXJccGxhaW 5oGpXoWcMuYkhkTO7lIFNv J0wrmYUfVLLkRDUaK6sqIp RicM0dkNhmKInlXrUuLfIh QfQHy129kc1sTUYmxYZeka WZyWUrkI7tJGtbXEfjPVom cSRtNRyhv5lcLDRwf0u2oQ VlGBRgelKyz0yoNDjjhyRa FYWlbDLvnSOyVSLkr18nNP mgpTonoGqwTQFdl6UtqNaj p8MhJlCmWUlcg8CcE05xkD JvbCBzbGlkZXMgcnVuIGFs o74zs1iqWSBuDaD7xQMqeP V0ePJeuKVvw2KyuKvyWKOo s9yvZOSsin5zkkcgaKUjm4 IonE2ygijeBXgtbMGymmBg TAOsr3m2bANkWCWtYKOuQJ oiiTq5LOSjw313zg8tskE2 tZFwNTA6ZQukDDBaZSZrtc UgZXZhbHVhdGVkXHBsYWlu XGYxXGZzMjJcM[facility]Zz[facility] NcaGljaFxmMVxkYmNoXGYx DEqnP0kjDcZoW3PiAFFmIv AkuLLzH2ecwRTnGOPyMQse XGYxXGZzMjJcbGFuZzEwMz NcaGljaFxmMVxkYmNoXGYx HAdgK4qnAiNqQ0VqTJKnGa IgIFxwbGFpblxmMVxmczIy OMqecbhoJPZdDSlsL3kkMt PiYWZdiTflNMpqg7PxOHCu HYMhNabddoIiWMj5twFePV BhclxwbGFpblxmMVxmczIy TRbdqntcELLqAZcsT3noVq OpZIWmaClbESkeo2MoALLy XGNmMlxmczIyIEltbXVub2 jdv9YeO9bazCnwiWH4OZGd C7boxDTnvXT5IMU4iY6vVV zmgwQyYQPmf8VfJSKuKEUb GuT8lX1wNGR2TiGXuDhsGZ BsYWluXGYxXGZzMjJcbGFu ZzEwMzNcaGljaFxmMVxkYm PxXOTvKVoqJ9zcLmTuB9By OWTgBnNsjAjsNNzwJYt9Wd xwbGFpblxmMVxmczIyXGxh gkyjPDTbLXopL5rmLpEeWE UjnDotZXwwv4NjTVLhCMXm MlxmczIyIHMgTWVkaWNhbC IJIC48EXSqEONaaPilyN7d dXDZZZJonwI5m2P4ZHpoKT AhMAz5BZkhudAkEDIlbG6o TXNgSC1oAJc4wqYcXAKlz1 DpIW8dIMSieCQgXFI8WDHx v5OeU7Myl4GcDBGxJBWztc 0nxtWsMbJUaLKtTPNpou05 CZNvTY4eA9qjLDKkHIVzbk YjpZJqo9TuXWCxfAT6hBAf SQ3CEwASi02dSOThYFMJzs ZsYGHppYjfgWX7abJ9qD3x LiBUaGUgRkRBIGhhcyBkZX Yqpb1anfVzBPMqGNQlc3Qk vSHgiXYocjDdS1Mip5VlAP Vscc62XEbocAInnh59WO9u X2Puv8EpqW1hKTplFLWnz5 WlvKWbwDLzOWWos2DwY3kl kaikSQjfyPUphO9dINQnRI e6KFYdi9AiAGNro4OhQmMv xxCjSQGkJLWyDVMkwM03BF G0sHphhJaeqoMvNC3kQBSl abJtNHKqFNZxlU7eWEwxxg HqLXNvcoT2k0V2UIsaWDDv kdJmUfukIRE8cpWdefT1bA LlL4ukvygoBOyyVOWyt3Jl kF7rcJWVlBLvt6YvsSMxkM NOiZNvLB7kyzKcYP3eSCY3 ODggKENMSUEtODgpIGFzIH K0IXzkWqbtBBV6zrAxYRKe b0BhZTyjU3otO11syIhkwM t3qDRktCzboGUinBZhROVg onX1r7V3NROal1KzeqazBF BsYWluXGYyXGZzMjJcbGFu ZzEwMzNcaGljaFxmMlxkYm PfMFEpPQdhA0jlWjYkMtYe IptdVMY9uN== Gross assessment was [facility] performed at ([facility], = 2770) Department of Pathology, [address] [place] [address], [place] [address], Technical component was [facility] performed at ([facility], = 2778) Department of Pathology, [address] [place] [address], Professional component [facility] was performed at ([facility], code = 2779) Department of Pathology, [address] [place] [address], [facility]38[facility]03 Test Item Value Reference Range Interpretation Comments Case Report (test code Medical Cytology = 104) Report Case: [id number] Authorizing Provider: Minal Joy MD Collected: 10/08/2022 02:53 PM Ordering Location: [address] Received: 10/10/2022 09:36 AM Service Pathologist: Jimena Anton MD Specimen: Pleural, Left DIAGNOSIS (test code = [id number] 3220) FuZzEwMzNcZnRuYmpcdWMx IHtccnRmMVxlcGljOTYwMl jqclXcSZNrkWMmH7Qwlumu OQxcYP4wYE0vlUxkgRXmrP VcYGLwLiQfw0cvi910mKFf h6ozCWKCbdmenDk4jTsnP9 8qt6B7PmhpS78zmRMmSNN7 SRMwXAQmnRXiDBHcFLS6RT MirKXjL5zyNTDmFF2lomlw JXmnGWstVFZrfJK6ZYGhfR CfB9UkADMwOTebSSQpbhu9 KmByNa2myCMlyMssPQicGN JkXHBsYWluXGZzMjAgTEVG VCBQTEVVUkFMIEZMVUlEIC mBWSFRY0YFBxPmPQ8DHJIZ RUwcEawTH8jmZihqoN9mAK WuAM4lXTJTEdYwDRTOPLzC PTnmO4TNGWEgAOODU5RBR0 cEXMXvWy9MVH4JQDpMZeBN O8biIQVNSPMKQ86LLA6LBD vkSNV7a8salVPfGFOeyPVq ODAwMFxhbnNpXGRlZmxhbm oeBACiFRX3lrBkWHViIJoz RXQnJKduLu5dqNTcoIhlBb WyTWHcu5xcosUZxdrtvVz3 o9suPJQlDcW5mSWwXAnlA8 uiidQvgSVyYSUvKKu2cW46 NWGnjU2pcYCxKDmrsmImOi Q5BPwcNPJpGtA9NKVmqKZw IRLzU4rlPMDfMTjqKJEqIJ gszXKoSLR6eIwmt1I1jEHb aGVldHtcZjBcZnMyMiBOb3 CsWPd6aOukZ1MsULCuRvI8 bHQgUGFyYWdyYXBoIEZvbn H8tL97ERswfrK2pINdt6Wa z98zk727iI0qgHFoGDO8UJ GzXGXvdCQaQSWdUEV6PPGz jTOtO0doKQRsKG8poairBR naZAdrYCEhdGP2OHCqiFQh S5GyHSQmMGvgSHPdlpe5Gm OdLq7eoEWtuNsjBTykx8ty r2udnVNzGgo0FZPhGsFgRs ivMLpzl2Okp2wjFZRirz6c JNW4qKOheOhou8G5fWYnNJ MyqMNnLLXfUC9ejDZpIGCf rR1jtaucHZDjIvCfqzwjGA WycSgnsaKhBa4pgRipDHP4 DMfcX5eidJ1yUsT5NQmpT5 ryoC5fYMl7FIudIYVvqWH6 ecZ7LMJtlGKsF5UcmY4uFC QdJG9cags1s4qaXXS1FRup HMPqKvM9dvW5WZGymMYiXJ CwpFaqKJyhr668SOH8MsHp GVYaa4WjR1OepErxG41hxP ybI26pBQTnxXjwdR8wgYda sD3wZgDyQoPtJQsifWgvBC 5mTEBeO9yzgSNdFOGrMKJn W7vvUbCqfP0egPxfRLpyam AvMICcRvj6YJJgzKIbSEKy Yha8VQUsNYHiY95mfvrzCU E5lG1nn8ncb0OrWEruEWI5 JSBkh12uBYsgazP7HIdkMu 04PMdnCJS9QQyhKEM6oJ== COMMENT (test code = l8qzdJLtRIFjjRV1HkMdWD 7643) Skj2qrk3XmaCDoyDTbLXui dTAtsqShce66nUW9hL55BF 6xBRRvXqE6KOJhfcW8Wnm8 MUZzYOZmwXRsY830d7xhj1 mhnbSewXZ1kXpaBZAcvfxw KxE6RNmaIEFizojtACr9PC zrMEGgxRE7HVDtjTCtH1Aw IQUxBI1ynmk5KAI9QMaiJM WlCcN4AUIdqSYvDKWjbCfa ECbcc225VMD6PoTpDIGqen WwcQkufG7sDmQuNRCOvWMi l3QzS3eoCI2laIBjF51fpL 7zGIDfl3JrejMoM2HnqpHs zCWct0OtQDlkFRydL3RsaS ObUV5vSJHgxb9ubKVacU0d gOZrvIF4yI0pMsCUlsA6fZ CbG1QpvEYncW1jfpRsHFDh jiwehAmwYE2vOJI0eVdxQZ cxZ9TwkJKfd2PnOJGzuAqc bGlhbCBjZWxscyBpcyBpZG RorSbrrABzIYWoIVFzc2Ht qM5pVZAma7g1eLYqaPcpOo 5dQKWfkB00DZQBE2KiGYck TdRdTDLjYC0uLBqqq1OdF9 BerKMwDOOvJT3qcEGrJEIz nVi5FSjpLR47sUEqNLOoo2 2slFpkHMS6qY0adTuntncm ZrG7XUDqljGsFRHfr0Nsx9 1wEAKoy8V2QAqmUlGWsMKq ZWZvcmUsIHRoZXNlIGZpbm RpbmdzIGFyZSBpbnRlcnBy ZXRlZCBhcyBhdHlwaWNhbC QwSWsnysywz1VidCbudW71 xlAjk9FniWFrbMcnCR4nhT 2ySQUuvdmyCEJzSa2iY4Da TDZMGPMau83gaYXuSOigxE qceQtvf1PrCbiyPWntW8Op XHBhcn0= CPT Code(s) (test code b3ijvXSoBUMniYY4CsHkTV = 3357) Drv2zlb1CseXRxdSStFNld aWToprQlww61jTN4gM83FM 4zCEXfEyR1JQCdlqT8Esb7 VOFqMPTdsRGaQ418k9fra8 icwaWtwXV4oXlgFAHujehz ThA3BBwaCULatbolWNq4MY ctGDZxeEF4UVMgnDMuT0Vb XIZrKB8gbqt6EXT3QSsoBG LsOhZ5VHKylJXsBVOjyBbc HBgek593UEH6DdKqYIHhgd DhaHrweS1pVcFsPUS3UEMu BRkiXKlaAMMkSBp9WlTjHT F8ESO7PWujWVBosn9= CLINICAL DATA (test e2zeiYHgIVUfeVJ3XpEaHS code = 3355) Kvu2xdm3YnvRGvwVGpVJkj nVMufbOdsi93wQG2zK91SR 4sLIPoTwP2XVQthzH6Bbt7 UWUqNNDnnKUvI161m9uzn4 bmjnIrmDJ2QQHjZGFjW1Xd HS7kZSAadGAcX66taQWgOW M9RWBbAIZhlBGuFDEoQKF3 RNGghUYnW2fdZZXlWV3ome gmCTvoLZofNYMlyNW9QJTn vPRmF1AhEAFyFHymHIOotl j8YxIsMo8slMEjqIknQInp YXJkXHBsYWluXGZzMjBcY2 LxCPl9FBrriu4aesIxdMBc ZVx+g6t2sULSEBhhm5KyJD 5IRnJFRiAoRUYgNDAtNDQl MWldB3QBTTQuQELnRjsniN N8RAF7QJAgZsNcvsOusIDh IGNhbmNlciwgXGNmMCBtYW nsZ87fvpZrqWanvOUtwNQg KwK6b1cuvdArXFDgae8xtV QcbUdvk5nzQpGnOYJavRXq fI2clIPpFFsysLTzSYrjnc AyTCBOQyksXGNmMVx+cmVj KG92NCXrpDv1WRItiaUiQ6 Q8QTDrloBttJSrbhgsOJHq toJnRTtmvSVjKU2eNPQhHl QgQnDfLMPqJcbvUtPwHT0c E6QkFYUuFGMffbGpGCYqZY EgdHJhbnNmZXIgZnJvbSBC jhC7z7Unk4L8JUKpwlNkpS Y4hWJtKCG1TOb4CZWnr54n c2NtIZSiw81vGK3zLHTcFA MOEMKpRC1mzNEleO== SPECIMEN SOURCE (test f4bnuRXfHPUhrJP4TjYaNO code = 3377) Uxz4tvs5GwkJMitZAsPFyw uZOyukUwvu63vGT1qG17YD 7sMCFmChJ5WAIjexN3Wrg5 HYFuRHRqaRBcB897m7cav2 adzjUxqAB5eVqnXBJmcfha OfL3OJdiEQPcguhtYPf2ZM dsYOGrpXT3RCYvhRDhA1Pd VMMlJE8rwtz1NEY5NPcoDK XaErF6LKWfnGXvIZSjqEil EWicy614SDE1LzRpDTAosj JumCersV1kWaHjCFZWKQNR IFBMRVVSQUwgRkxVSURccG FyfQ== GROSS DESCRIPTION (test d2absCOnIIGpqKLXUBYfH9 code = [id number]) yleuIsIGOosPPwU1Eiuuii SYflRQ0oDW2wqFywkPKwzP VnZF0XQURgKhIhYABhbFNh bxWyQyPfMJShrLJieMS3WL CdTH3zqdqnDZreWJadATSk wyU0LGRwkKKtO5SiNKXmJL 0ehkdlTTA0WEbcoE8glkJL HbaaQp7teOWbgYpjZwZnLc NoYXJzZXQwXGZuaWwgQXJp LFa6sI6CQnbfGGT7ROZIXo lvUTJwJV6Zm4xjIIDmaABj MSU3USughBGcRBDhRKXiXZ h5TYSsBWqmrLKeMA3tpJdz IwnuhYivx5NimEPvZLptUO YhTRAaNHcfAMPqDV1AJpDe CYLmUXBzSVtjXTx2YWs5BQ 9WUyAiICAzMTAxNzIwNiIg FCb7WLxuEN3HLRBhKTx1AG paOrX8GXN6CnFsLDKvHgAk XGYgQXJpYWwgXFxmbCBcXG 3ikZtidAHgdaVJDmQQdWC8 rcOzVKAUYLI0YytdREIuTG qsVKJrJ04ms3GBy8XlVB6Y TRo0nwRimvoigA5nFQHsjk WlZYzfkOVgC5ekKeIiGNIS TRGeyWGjMCW6UESfkOluDA FtYmVyIGZsdWlkOyBwcmVw VZVgDOQ3OXW2cS8zpNkicy YqzwCkF6OcfAZkjU4ehqlS CcokKMTkm4VozNmmISJwvE blHmbcO6esw4GssBCxFMCb jDWvbgugaQFhJHHpEck7OX YqkoOwaX8zoPdvYUL3uOTb mqHjXVKgi95lZZFixMmoIL WeHTHoiND9KGEpOwa1JYFn nF6dTt8fnRWqjM8yCMFiTM H3JLTlaL8kj03oIAQpVzNl MjAyMiANClxwbGFpblxlcG odYsYkbAUaVyRzjEwrlY87 XIMnrPCuMXW8SN0jSSGirp vvYXQfETWrMZE2OPrcfJ47 cPTwIBXxHEJrnXWqhH9VUY BoBHB0SImxoE91wEDvVJ2G OJImRXW3WBFidRMvMCT7OY 3sgQ1AcA== MICROSCOPIC DESCRIPTION x3xqmLYhVZEglQF4OcHvMC (test code = 3371) Fsb3fhc7SycVPlyLZnAJam xKGmfeXled25wRY4dD39DE 6dSWXiYsZ0JOZcvoC7Rtw3 BZFdAMYmeHNdG322d7nca8 pijuTyzHM6dUomRCAghfmp EyB5HOleSMQxxbyzSEe8KR vuSYHxqEZ2TLEdhCCfG0Pq GTBsXW6dthg1JEF7QBcpGX FkRjK6ZZYzbDKmQUTnuQdf VGrva035WOO6RaWlVTDadu OlrFdcvP9cQwFvMIMJOGHj l3EtULEvXMxsLLH2 STATEMENT OF ADEQUACY Satisfactory (test code = 2757) SPECIAL STUDIES (test b2afuASnHXOqj2xqETBtpH code = 3376) FuZzEwMzNcZnRuYmpcdWMx XUjnqmHhNFbie1PoD4FkQy AwMFxhbnNpXGRlZmxhbmcx LJXeMOY2hjWlLDFcJWcvUO QxBZyuIu0psJBzlRaqVyVo ZUQwy4tifoXNtkzjeSf6v3 ajGTFnWxC1rPWhVQyuS5xw tbNslJQvY2VgeKXxtTj3s3 ndCrOiVvM3oIHeNAdiO1bd guEsdHNxOOYlQRx4aJ48PC ZzvA0ueYJlPTkomaLmSjS3 UNswFDZvZkB4QJTfbHDaGW PyS4xdILFaWOzwRFJzMIgq iNWmAOF7kRzgg4R8vSUrcW MswDeyNrMaOgCxXkHUm9Du XQw1yDkaH4QkKDVaIkX8nI QgUGFyYWdyYXBoIEZvbnQ7 wTejbbOgt72jfERaWLNlWZ HnOaHtrLdbLDAuGNNNv6Cd nAroCIY5nOm9pNmkGpfoPZ P8Fql5AJ1kgp62ggv7pDtj BEXadvqxYhP5PXluEZFcor eyAJa9WOygVVZknFT0MNDa iPHrS3OkTQHdWM1ozhl2AI H2KKdqCCJpYpT8IQMtpJSx ILMsxVljYAtji253LHN3Wy IaXB8eB0Zzn1U2rJ9orJQj HPGugKBmDgMnBFXrey8neM PlQTion0MgPJL4ovY9gSAy pNUsLFLvTJ71Ofvxh3IzEp kix2NtM90ecDU4DYmtq4js LW1nVyB8ziYkFQzbv1pnlF 4uCeX9BJbcCE2cII3tYTOq xA0qihkzIQUhSyNxhjtrDR NtqSrzozQbDl2egYkkCUS0 RAcgL4mifX1jUbZ9PVquM6 dxyP2iVPm5XTxsqJE3AQVv cF5jKT4jzkyky1yuYWatBA cvSHFymmM6frD8ZKCylWOf B8GmmC5yFGMvJN1hgnwnp2 oySVE3RRixMAAxKZG3PiVs ZSAqq3Mirfe2DvGxt2LlkK KyVVhuT21ye916JFSxpbNk S5sraCDpgskzaAYwmghnLI ecprM8RAQhLHBzSBybHWQa XGZzMjJcbGFuZzEwMzNcaG ljaFxmMVxkYmNoXGYxXGxv C1spZhGxO3NmBZKzUtLdRU qzWXguaVEtpKHidJQ4mG4v PH1hOOBszIDzW8CmDYGkpy QkeGDvESH5xQFgiQRsPH4h PVoirCKae7oen1YrG5jcsP irrGF2HV5sTNLrJZXkIHwp h5XxgH2iIuubzVYldvhxKG xmczIyXGxhbmcxMDMzXGhp I8ucMmWbDIWhmWxxAHolm4 NoXGYxXGNmMlxmczIyXGx0 cmNoXHBhclxwYXJccGxhaW 6rLsBmJuJjCsyqJY1fJOCl S9quvJZpKWUgOECyQ5rmWn ZwfL0nnXocRLfuMeAeWzHt RjRCj769mm6nRLXahQCvxq NAwXYgkL0pJKcyLGidOUve rYMtJOxhy5acEAVgo2o8mS EcETPmbjCgn0mrJQmmljBa NMBtiIZonVChQGUic66xUE iriMxywLkwACKys4BbkJnp t6CeXqLrUIuik4BwJ15egD JvbCBzbGlkZXMgcnVuIGFs p75kc9nsKRJiNnN0uCUamJ Z8oJYftWNje3PalNyrAKTh b0osBOKpgu9akcuaxOSce4 ZivL8iuhvzIClkwIFceiOm YCOjl3e2yHZoEOYoFGEuNQ gsjSj4SZSxf653qd2adxZ6 cDKcBSY5SWopCDCePCQybh UgZXZhbHVhdGVkXHBsYWlu XGYxXGZzMjJcbGFuZzEwMz NcaGljaFxmMVxkYmNoXGYx ZLatF5xwDkAyV7IzVCUgRz FrfQRgW6fkfSUzEFZyPTnj XGYxXGZzMjJcbGFuZzEwMz NcaGljaFxmMVxkYmNoXGYx JGgdV1mqSmZcE5OpLLGaQo IgIFxwbGFpblxmMVxmczIy DWwhjfduMIVgNWxgS3dkQq PoWTZsjDtgMJwcs6UgJSBt HINaSprnnjYbHBc4zyKbNG BhclxwbGFpblxmMVxmczIy ZVgacebfXEStGQduU7jnUv HvEWGhuRdoMNfii5TiFOYz XGNmMlxmczIyIEltbXVub2 xtq7UpH3mriGjtoHD7QUCi Y6hfrCYveGW2CEJ8zX1bYM aafsNdDYNrd9HfXYJmZHKo FtA2uJ3iXLQ9WzWKkSqyTR BsYWluXGYxXGZzMjJcbGFu ZzEwMzNcaGljaFxmMVxkYm SwBHJnUXjqS1ytSgSfH0Jn AXPgKyCxcPvtYLjzMWf9Oz xwbGFpblxmMVxmczIyXGxh fjiqBMHcMSkkU7daVdTwUS MxoImuMWzab2AvWDGwAPCb MlxmczIyIHMgTWVkaWNhbC UWFL27GFStXAKszGtsjC7r nHPYWVLoaqP6j7H7LOkzVK SyZQs4SZnkyePwSZTedP6m MXFhHX2cVJh8feRmVMQzn8 SrBA0gQZKfnJZoDAF6TDJo p6JoJ1Ccy9CmKAIsWRQjsk 3upoBwLuRRwBGhSFCiqg20 IURpTA1mQ7pmXHLrCYQocd GipPIzs7DsMRKygXQ4uJRz JO3CPuFSr39bOZRoORKIqb RuJFJcvOgmcFG5qlC7tV0y LiBUaGUgRkRBIGhhcyBkZX Rqmq4cmoPnVLUwSVWas7Fa cKGwnUApnmZmL9Ypp6CnTY Levk50UCotcMJpos33DD2h S5Adq5BwlD1iHUblPTGrz4 CqjLXqoJHuIILvz1NgQ0kj uwspWOqlcHYvoI9rFNBwQK q6YDSql4WpYYJzy0XjKkCy bcXaXYLsBCChIUZntD69CC G4oSgfpKdmuiOqYJ8lCIDc gaTmRBOcLBOiaJ2hBNpylt QfKVMqjmZ3g5T4MUhzGZFg swGvCkpxSAY6kgDyktP7wU ErR4uhzpvrFSfpBBEwq2Tc kL2rgNFOsNSom0BaaCKrcW AYaDJaYS0qjlVrHW6bIFS0 ODggKENMSUEtODgpIGFzIH F1SPjmLrycULT6nuQfTEMc g4CoQFqtB6oxC84vcInujU e7qFRvdZfzjOPeqKSkGKPl zoK5y2B5CSNgx0LkgsjmCB BsYWluXGYyXGZzMjJcbGFu ZzEwMzNcaGljaFxmMlxkYm WyWZEbVDkuG8jqQgNhVlAg GubrTDH0rE== Gross assessment was [facility] performed at ([facility], = 3188) Department of Pathology, [address] [place] [address], [place] [address], Technical component was [facility] performed at ([facility], = 7788) Department of Pathology, [address] [place] [address], Professional component [facility]'s was performed at ([facility], code = 2779) Department of Pathology, [address] [place] [address], [facility]03 Test Item Value Reference Range Interpretation Comments Case Report (test code Medical Cytology = 104) Report Case: [id number] Authorizing Provider: Minal Joy MD Collected: 10/08/2022 02:53 PM Ordering Location: [address] Received: 10/10/2022 09:36 AM Service Pathologist: Jimena Anton MD Specimen: Pleural, Left DIAGNOSIS (test code = [id number] 3220) FuZzEwMzNcZnRuYmpcdWMx IHtccnRmMVxlcGljOTYwMl mniiEbSVNcpVLrJ8Wwvdyd MAlaTZ1eYA2ziFhetYXxvA NwRZJbDlOzq5gfl380pKNz h8drAIGDedohsRo9wHcdW4 5jq1O5MknzY18mtHFvNGY5 DZJzMVPchCStXSZqKJL7HY EtaMTnV3fsYDSyNV3xugth QEjsZDmaWUDymXE3FUAiiM ZcC6PnGZKlMQqwBKJaoqi1 EvYoCa7leFKidCbsLTccFZ JkXHBsYWluXGZzMjAgTEVG VCBQTEVVUkFMIEZMVUlEIC bPZTFGL3EMYtPhOE9GUKZC LMwnPdtSH5nvGghnpY3rUI UyBQ0pMOHOAuWlISLCAPlF WGygN4CROOUxURKCS4JRI4 hZSDCzHb4DRC8GOFjWYpIK Z3taOFKVNKVKQ74GWL1VEF dlDLO8a7dgzBRrEJBarQSy ODAwMFxhbnNpXGRlZmxhbm isHYZaALA9xoRrOBOoHOhq NYKnHIcjOw3ocBGuqQfeLe KoOBIhr1xdcyVQimxadVe1 v4ghYKUrLrD5mLJqYPwaZ4 jpoqTxrLHyQRKrDQd4sX45 HAUedJ9vlASuONxzwhGzSs N4BMscZNGxAnX4YDHnnHGk PHSiF1jkGVWuKRweNEViQP iulFWlDVO2jQapp8I3pKFt aGVldHtcZjBcZnMyMiBOb3 DxHJs8yAypH2YuHMRbTxJ2 bHQgUGFyYWdyYXBoIEZvbn V0mV07PNrqqdY6kQKfd7Vl v05md596lJ6cyHSqZUW1WA LnPOJnpLLnFEVhXXR1ZZZk sJJwD7ujLLGhXS8edsisUM vmVDekKNKwnTW4HYOkqUGc S1OfHSQmGQrxYJFkxir2Fl MoBs5dlFZosXfrFTkph0pl c8yddAJvJap1WYRhGlNwHq jyABeww6Fvl5maZTNdyp8g NBR4vETguNwmx0X0pJKtRS GwrBMbOMRcGH4lgJBkIOVp bX3mtpwxLIUuAdMpqjcpZP DomKrwfuEuRx2olEkiXXG9 ELztF8ezzO2tAcS1HNxqK9 yxxL5dJUd0OLxjAOZxjVM1 afU4ABRxsLRdX1VzgH4wTZ GkGF4ojlv6m9fqXSC1YVqp JSCvZbF5wvG0YWZcpUDnNK TxuQivAZavc062GAJ0CqIl MYQnd0NpB7NesOsdC03mpD ebD58nSARxvHupnZ0bpUqi tB6aVrZkJrYnETruyHivOW 3pMXMjA8dyyLWnSSOwMKGp V9knFgGogR8jnUyuBPkrbl AwFCNsVhv9RIVaoSEtEDWm Lih9DCFkBEYfR74wwhhwEQ V3tP5pa9luo4ZzIQdbHTD9 PNEen04bELsrvoH7AQzhXs 92SJwzUSI0DXcrSOD7bZ== COMMENT (test code = r5ttrCPoZLAicVV6VuOaNJ 8115) Ffl2utq2PnfVKenOQgUElt wNDgzbNobx57aKX1xV28QG 5eLHZbKiJ0TLKhlcC3Ocu2 DSPcYXFfcVGeS590k0mqe9 jelwRpyBG2sAvfXKDuyxjp DtD1RMfiWGZpmejfDDz7BY fdZDJyjNW7BABntNOcZ3Ci EYUzOR9cnzt2BNA6KEcaRO BxGxB3QPUqcWWmLNFpsDsu OUaqq275MII7TpIfVJNcfa HwrVflbC8nJxVyFVSQdQUk z9YuZ7vsJT2ojGEqK06wyP 9mXXKss8VngkEoJ2GwbaJy pMXim7GfVRqxIIszZ9CdnZ DuCH9xZQVzbe0xrQTlvG9l dKWzzBW1iM6tFwDMroV1iN SdF2JqpEYksE5bumSiQKSu pdiidItdAY6mKQQ8qVhnPX ymA7IlfGFuy1EgQMRrcTgg bGlhbCBjZWxscyBpcyBpZG FdxJiqeEMaCGSmJZAut5Bx eA5tUGCtn3n2jNIrrYyuKu 7eNRQktY51QXGGG3OsKBcv ErFlKZJrSH5sKMdpn0MvG3 DqkAHrXCNqII9igDKyJFSz xHr0FBasLB14cNUmQHQsh2 2mdSaiNVS7pO8jiOhktzte TvT7YHFxvlDvNSXdt1Vhk5 2qUEAxv0K5FQvfIsEElJJl ZWZvcmUsIHRoZXNlIGZpbm RpbmdzIGFyZSBpbnRlcnBy ZXRlZCBhcyBhdHlwaWNhbC WcUPprtthqx8NbbHxltK50 viOwl6LywLUitPpzRM9tnP 0pZMWtncnwSQOkFv2aG3Mo NGWEZASur57glCTdNPbtsH rvbGtik4OgKgucXSnvJ5Ct XHBhcn0= CPT Code(s) (test code v2jkkEUgZDVswHQ2WmOjWW = 3357) Vba1xzz4MbtCBqqSIqRYag yBPzfrQbll59gGJ3aH54GE 3lGYAtJyZ7HBXvnpE7Ahz9 YORsOWIplNNlQ165b7jex6 xbrmEsaHN9eOduJGVwwrsf CxV5NHfbKALlqqmqUQr7ZE ezOAGyyXF6PKKlaHByV2Wf QTUhAZ0eoah5DUZ6LGcwOG DgYxN5WZHnpGLuBMXccQiw PMldz270KYB3QpCpKLAcek ZlnUxwsA9nHfVrDZJ8YAZe NXavMCljNBWlXFm6EsItIK E9RSA4XKjmQVOncx0= CLINICAL DATA (test j7eibGHuPAIjhGF3IaLlFX code = 3355) Jvo8lby2NnkDNnmUHiXPre pXWdcoIfkd28wUP9cF12UR 7bCEXwMiT8YGAldlH6Fev0 GSQmZFSvtVGtH904e6rzl7 hhieWzbXX7SMFvERIxS9Wj OK2wNMTexXZfH43azUKkEO G3WQCkRYClvSImATLhEKO5 XDFhbRBcB6pxIOVrZN0tkm nqFXmrKNlaLNEhnMJ5KREp bODaD9QcAPJwKYsdMIXowo j5BtZePc3bxPSpdJuxLFgu YXJkXHBsYWluXGZzMjBcY2 NnKTr1PJzqns3jztVujITd ZVx+d6u3iIJVXRphq5KhGE 5IRnJFRiAoRUYgNDAtNDQl CPyoQ5FADOPfZNBaPwyfnJ G1LFV4IDKpQtEigoEwgDYm IGNhbmNlciwgXGNmMCBtYW nxV28xmuByrZvnlISqkVGl NgH5u0bjzlTyYTXnqo8vmS ZmwEtfe0ioXaFvDABvgDOd mL4shRVnNYokeEGqHWwaof AyTCBOQyksXGNmMVx+cmVj OD29NKZkfHg3JYEywvPnT2 G0IBFumxTweMDnfilxQSDp gkPxIJnysGUsIV1mFUJfSd OcYaVdSJXqZfnsCvHsML9s Q7SbMKXsEOXahaSqNVVoRU EgdHJhbnNmZXIgZnJvbSBC xqB9z4Qly0J1XTIowvNpyN V5hJQmHJF6XSo8XWHid99c w4GtZUZka58nSI7hTTEfXP RPWBVrOK1dzGXpgV== SPECIMEN SOURCE (test q7uwzNPpULGgoZQ7FwKgDR code = 3377) Woy5wuy2XugAOihDVkXLwi lOJkopVbgo88dUR2kG81AF 9fIMAtTmK1QETjteE0Swh7 JSLvNOEbtDEbL819r7vrn5 hursJkhEG8lCyuRPKagjde HqS4GEnxSTNxlgoaHUr7EA luMVMbvKJ8DFDztUKdT5Cx JDNjYT7hhtv5GUD5TEvoFH ToOhT3HATofOYhUZPeuNxy YAzhp860DGW9QsLwGFZfkf FmrTrhgW9kUxWzWAPGUGPH IFBMRVVSQUwgRkxVSURccG FyfQ== GROSS DESCRIPTION (test o0fonZXmPRYvuCLJAYUuY2 code = 3070791569) xlboCvHKKfiFXiF7Gjvicr OEznVQ0zWM7erUmckYIzlB PoJR3TBVIvIrYvTVNfuKWw bhRcLjVdQAUjdPXscJO8IC RzIH8menaxKSldDPrqWSDs liI8FLUrcSCbM5JaTLSoYN 8rkuehGXY6XMyvkX0mqfUL IttxFg5pdCIniEmpFmYdTy NoYXJzZXQwXGZuaWwgQXJp MDb3dT2OPrbuHOI6KCEBGq okKYCdZA2Ww4ujBBLyxKMj OXV9TJdgeDAtDRHzMJHzDT w9ZYLdHTlzsCXxXE9xbJsd RogemNvlg4NtlRBgFTdbAM OtLLZhWFlyGSRgFM1GUkLb UHDnJWJtJQtkECk9BJn0RJ 9WUyAiICAzMTAxNzIwNiIg ITr7BSysQS7QQCHsSNb8YA ckIsB2YTG4WwJaFMNfTpGp XGYgQXJpYWwgXFxmbCBcXG 7upJzgbVPtkeUIVeZPrTR1 qzPkKPGLMDN8ReqtQXYjIV oaUSBuJ87hy4UDn5LmKX8M RIg1tgUxmngyjS1mJYBcra ZiGEfrcBLuQ7uqZxMqZAFL IQTawYFbYVO5HMOekOrfLK FtYmVyIGZsdWlkOyBwcmVw OMFfHEY1LAS6tE7dvVlpcr UezbXgP2TutSGmuN0vznkS VqujGRJri0DgrFjjZOOecZ gbNsctL0aky5KonUGyJPVp sACnmgrvqVOyAMDcAcf5EZ WursIvhI2knTnhMZV9tLYu jxSgYWMxd97yZCEvlZpfKC SkFFBytFW3TCLmTry8SEGg xN8bNu6fdOZfcD6yUAQvDY E4JVHrvP5qs99uMDJpLvNd MjAyMiANClxwbGFpblxlcG bwLhEpwPZkWiUxkJpjnP06 GUXrzCEoDCX0QZ7oTMPdze guSHDfJMMbJRD8LOohhB30 rJUuPYSdZFKkwYZpsG6QYH RmAVW8ZXpdxG44kGNkOO6I YCFxHKZ0NLGyyIRsPMY8EB 3teW3UpQ== MICROSCOPIC DESCRIPTION o1mjuZYwULOdoTR3DeIlRS (test code = 3371) Ots4pta9QobQTvcUIrSTzt hXHalyTtun61uQH1xR65VE 4wRDMfGfT9UMXovzX7Vuh0 TEIyCKChpNTkJ873z6sas6 dqugZeuYU4zRnhNBNooufm KqA1IIbsRBHkxbbsJZk6ZS izJFTxoPP9YKRanEElV1Ve BHDoKL8lghr0XWX4UVefTL DeNbM1OXRrrNTmVCDdbPlc ZXtsq758NBL0WkJzUSBzcm SfmQgarN1hClDdKGJNOZZu x2UlCUUjQBrsHOY3 STATEMENT OF ADEQUACY Satisfactory (test code = 2757) SPECIAL STUDIES (test n1pdsWDlDZOyk4niNFNtmG code = 3376) FuZzEwMzNcZnRuYmpcdWMx VHebmsGyWVwye8SmL6InXn AwMFxhbnNpXGRlZmxhbmcx IXCfBPO6whXcBURfBHpnCS OpKGviAo5okWFvwKftYzGj RJGzk6fiubVVoxlzoUi5d8 reWRJaWwD7bICiNYylX5uf ryVpiHVmM6UoqMThiXl3i0 ehNhYvWeV6fDFpGKvxB5tg icYstSLvGHQtPYa5uP42IQ BygI0zjMJiRZdkrwUsMmT3 ZCgnWBWuSfU0KWQwjJXuQU LaJ5iuKEGeMEppEPRuLMbv rKLwIWE9gHjyx4I8yASfdU CeoRsvTrOtEyYiMgWTl0Wo YXh1gChmQ5FvBQVsAoB2sR QgUGFyYWdyYXBoIEZvbnQ7 fAzdpbRwn84quLYzDBPgAQ McPcBtlEqcFXUlICGDk8Es oWyiJJZ5fZo0jHldQxtmHV V4Tue6JO9kbh70qmu0sPid ENYerpzjJxZ8UGoaOTCpyg bfCXz6UFhwNKQgoQU6MFMi gZPkF6RoTXZsQP7jaxe5FM C7PHcuZUOdLoW6JHYnuHRd HYVkfYxnWWgfu044ISF0Zc GdNE7sY5Tul1D0aV8epKZp SUAzxJTgWvEnLFCadg1tbB JkDWocm5EkZDN0wtB2jCVf oMNxYFMyDF87Lxuif9AeHz pgq4HlC07beFD8DIbrn8gr DH5tCaF3urDcIOien9rluU 2cAwJ0OSwmBY1iLL1nDFDe wM6ctioyKUAaJoKyajhmEP LpbCafebTrSv2kfWtpEZB0 GSzgA7qqwZ5tRoA1OQbkQ3 udtQ2eGWc5VZmlyKT4BNGj eN5pML9dkzipz7deWUmyZQ skQOIcxrX4ruI0CDGozWVa F3UvbZ7hIROsMM2qzknpc3 xcTBE7ZDvqJPRiGTS8CwKx IVEzi3Ewqor6RzUdz5BatJ BsFBhyM47we864EPBolrKa H6fjoPPzfluukJYjzqgfIK piokE7MBDeYCAtKPlnISRh XGZzMjJcbGFuZzEwMzNcaG ljaFxmMVxkYmNoXGYxXGxv R1hmCuDjB4RwNFJbDkJdTE nkGSockXCsaDXdpOJ1lM8c OQ3rNTEalXJpN7GcNRNnbb EbyAQxOSU9aPCbjPHyKF4l FTvmtITpf5itx3IhB2geiM eneNU8WZ0yOJFzOEGkHNbo v1AneO4qWzlkyKBmzjafUO xmczIyXGxhbmcxMDMzXGhp O7xzRjLlRQSybToyDAuhw8 NoXGYxXGNmMlxmczIyXGx0 cmNoXHBhclxwYXJccGxhaW 2vKeJoIpAuSzhaCH7tLIKj I8yhfIHdGGHmWHDiA8lsYo PbkY2vpOqvGOgqZhBrSeOi XmRPu209vh2jSBWnrBCfzz NByANjgH1iMPdwXAgtRXmq cUWwZDgzd3cdXBMaf4j1mB DoKCEaacNrx0neNJnlswXp DDOjsOHvtBTqTIIoh53nAD bjfKzzlRixISCqw2BwkAko q7GqAzSeSOvnl0CkX33qfK JvbCBzbGlkZXMgcnVuIGFs i60tv3nuSPViSlC3yVHjfS K8aVFveJRna1VfsHpvJCMc c6zqJZYowp7cazsjqZAgz8 RieI1ylhqmTYplwYIdqpKq JKXjj4x7tMNrOYCvCRFeIY rfqGt0XPThg921qi9xfnJ9 iZUxVNI9PLjjACDuECHxpx UgZXZhbHVhdGVkXHBsYWlu XGYxXGZzMjJcbGFuZzEwMz NcaGljaFxmMVxkYmNoXGYx SZzjX5ryNxRuO1XrZYTxAq GghWMlZ9fuoMNiTHTmPFxv XGYxXGZzMjJcbGFuZzEwMz NcaGljaFxmMVxkYmNoXGYx PHwyC6wfAfUoE2DsNQViOy IgIFxwbGFpblxmMVxmczIy SCysgseeJAPpISfuX2irFa OtUHHsfJyeUAwtn3GeOFLy SIJjCusnmxEdADo0mdLdYO BhclxwbGFpblxmMVxmczIy VWdijzgiAZFbLJqiA9fwQq UhQDAqlIxtOVhqx0KmIRUm XGNmMlxmczIyIEltbXVub2 iku9TwD5nvzZnxtJS0QKVn B6ipcUWvqDG1GEC1eU3gOW xvdcEvSEYtf4QaWGReROFn FiA8uD6gLDA8VwASwDunQX BsYWluXGYxXGZzMjJcbGFu ZzEwMzNcaGljaFxmMVxkYm JeXLAiQBsgQ4ehWgMwR2Th LQYjPlWgcPjnPNulJMw9Cu xwbGFpblxmMVxmczIyXGxh tpgpFVQzIHczR4btWqDkPM UyfTyxIZbsq7WzWNRfDXFf MlxmczIyIHMgTWVkaWNhbC FARW70MMDdKLBjaMpkgL0j rURJWVKnefP0s2B6CUmtPB AiVJw4DRaellXvBOMpgL3f KKYvMP8rBKq3dcYySEIaw5 UqFM7zUTUygJUzGJC0CDGl h3AwZ8Ccm1AsRJQtXTRuvk 0xotNyYyKVsALjSTRioc34 BNRpTH3lW8tuZKKrQOEymo RjkEZee0MlYFCyhHJ5lPHf PK6WNpYMe55uZFCgCNAFcs RjKAMweLbfgHG2qpZ5wN7t LiBUaGUgRkRBIGhhcyBkZX Vxje3sjvQyJJJhBXTht3Ky zSMmzJMzjjRfR8Mbt9ExUC Prtr17QPqqhQNvfm80QA2q R8Hdf5IjsL6hUBhsCABfy8 UwlXScxMSiKANrm1MxD7uc aducAMvkvSQyeF0lHPTdXF i6LKCpi1SzDZVmf9GmWiZu vdJsTRReTNVsDTZrtP83XQ G4fPglxFqhaqMbWJ2uMWWx smVwFZTjEBUtvP5dYXgvxl FkKSNxjwL8l8R1GFmxANVd xcYlBsdfMPC6rwFspoD6uW YqG7lpvfeyHLpmNDAmi6Pn uF3xdJAXgLIeu2CqqRKxcI TYyKMmOU2ewyVwAL8gOBI5 ODggKENMSUEtODgpIGFzIH X1TGksZmyuIQF0lyGfBCHc s4CjPVraC0svO38fkFlyuC a5gGAdpVgfoNLboWRjXKSg mjA5g5L8IGHti9IkifrtPC BsYWluXGYyXGZzMjJcbGFu ZzEwMzNcaGljaFxmMlxkYm RmCBXjXAhcV7dqOcMpCpBl IzseQHB8dO== Gross assessment was [facility] performed at ([facility], = 9050) Department of Pathology, [address] [place] [address], Technical component was [facility] performed at ([facility], = 7653) Department of Pathology, [address] [place] [address], Professional component [facility] was performed at ([facility], code = 2779) Department of Pathology, [address] [facility], [place] [address], [facility] 15[facility]38:03 Test Item Value Reference Range Interpretation Comments Case Report (test code Medical Cytology = 104) Report Case: [id number] Authorizing Provider: Minal Joy MD Collected: 10/08/2022 02:53 PM Ordering Location: [address] Received: 10/10/2022 09:36 AM Service Pathologist: Jimena Anton MD Specimen: Pleural, Left DIAGNOSIS (test code = [id number]) FuZzEwMzNcZnRuYmpcdWMx IHtccnRmMVxlcGljOTYwMl rhkzAwRCHzdYImN1Sndasg AIoiPJ5rLX8hwNikzRDnzZ UwSDAvHiEuc1hgq374ySIy x3mxVXBXxatvxZw5dBgvG2 8nv8P5WzihT68gmDGcWAI2 HZCeTXZmvUHoORLuVZF8GO PipOWrY2zvPEGlIA5azcoo IBnzZMufQQZcjAI3PGHufH QyM9AlNQMiMEwaWVIwkau8 QqNoWd7xbZVhtEtqHXqjOB JkXHBsYWluXGZzMjAgTEVG VCBQTEVVUkFMIEZMVUlEIC kAIISIL7EVKfEtAI5WZSUI JWjyLnjGU9psHqqyuA8yCJ IhXP7vWKTSElZzCLYQJGbT PHsoA0WRCQReMXDTK0PPW6 jIIGMpHk1LVR7DOCvPExSR P6qxCWBGHNCTY26IAE4DCM qcRMU5e6wcoNPwPARrgBRl ODAwMFxhbnNpXGRlZmxhbm lcZGGoWNC6yyTkCDIoHFzc UKRuFMyhIi8cgPWwyUdnOp OiNWDrl1dyacJDlikjeEr7 o0cuFJVwKuI1yDCcWQpzO9 mhopBtjGJoQALeWCm4aQ48 PODwlI8qyZYlLObukcFmQm P9POkvFGAyDvI3BJNsoQWc EAPjF3ngTBFpMAyyEOMhOJ jpuRChCEV6zSmda4Y4rWKr aGVldHtcZjBcZnMyMiBOb3 CxZCj2lHpfA8GxIYCiDkH2 bHQgUGFyYWdyYXBoIEZvbn U1nQ37QAboadZ7mNTto9Px s78vl957hU1kqLSnPYE2YP HaEBSssAHbNQXeTHX0RMAn wMQhP9quHFOjWN9mcwxxCV maQZmbAWCraDO9EJRuqNZr C6KqGESpLAinATRjybn9Lj KcMs9yxQXvxGntORqvp2yu h1yylMHgPqt3QLPjFoCkAj wgDJnjl6Tow4riNMSirs8v AYX2nMNabRinf9O5rBEgQF SgqLArCXNdGW0vqIBxCRHx iH5cimnkTHXxAeVbhwxsUM RcuRyotdYlNp9thOmhSJJ7 JQdbP9acaO4nSpP5TCvvK1 oeyN8lZOa8QGroSHMthNV0 sbX4KCAqqYOgV7LzmA5tMK CrDB8vvkr0a2maHIR9IRdo HSNyVlK7zhM1TJShfOMzSY PvjYupTWlum235LUZ2GhIc MOKbv4NyJ0XkcOsoI30ljO zuP76nDQRraOfdrQ5njMze wF5nOaDjPjRwKYwfxLblIT 9jDHQbO6qxtFKdQBXxKFWc U7amNwHsmZ1xrCjhJJibyi MqSKAyPsr2KHQejIPnUTHd Flj4GJOdQTAxH41semgvXE V8iS1xy3vco6JdQAwsTFC0 QJOfr00eMZholsU3GYjlBa 82TNdqMEF5DYrpQBM8eE== COMMENT (test code = r2zsmLKfDKOlhSO6KfSpFK 3356) Dcc1fkp2FciIEceYTpMQhv aMQumbCsef21pDG9iD35QW 5kLQIvTvU9FVTjbcV9Zgh0 GIJrKSPnsVEaG891d6idq6 dnldMcgSI4iNjbQMZotmzk MyT0WXgfHMPpuuwjLWm0VJ qoGWYxkWL9HOSbgIAzO1Nv FWWjUW0jmlo7OIX4FBrfND BsPvZ6DNMbzOPmHGLjrTrq VIjon168MTP2BjLpNJZfvx LpyGakcS9gEzFbOMNXkIRj n8EkW4igIC5rlRCoW08baN 6hROBmg1HyzeQtN5RycyEa qKYjx7PcIVfkMVmhH5IgwN CpIS0rWSIhmj9nbYZedX1y uQUibDY4xP1dZhXTcdO9bM KpY6KquDBmmI9lzrAtEXUm qxljfJywQL4iKDJ5zAuwCS anV8PwmCSjv1TpFNPscXbh bGlhbCBjZWxscyBpcyBpZG NzxEzdcVMdQRDfDZUrr7Gp hP3yQBLpa1i8yQPigAmbGn 6hVPCtdD60IBHDU9MxTHco JnFiUYXkIR2kKWxnc3JdI3 CsiGMqPHJfUQ8shTVoHJLw zFo6RTdjWA89aFMgDYNwu6 0boFjbMTB2sO9hcRygpomu McK7RLHdyrGcFOCoa9Hop0 4dDFAqp1X3XNpjIqQFcRDz ZWZvcmUsIHRoZXNlIGZpbm RpbmdzIGFyZSBpbnRlcnBy ZXRlZCBhcyBhdHlwaWNhbC AmDQasrpepo2HudHpnaS16 aoGoe7AgrCLtbMgkXO2azP 1eUPFngjvhEVGaXo8dL3Aq EQLKNKPko16opVJuKMxazY ewaYkjf6MuQejwUUvsG6Ug XHBhcn0= CPT Code(s) (test code q9narNDeIUIjgDD2WwWaME = 3357) Nvy9dkn5AnxHFymRQaJYfb oVCveuFnil05tVT6dL06OW 8uISYvUeO9DGOwcxE8Bpi7 IKKpJHJabVGaV674m1lpq7 vlrxHovCS4fAmcFKRqqsfc LnW7VVhxLOIvjzbtMZn1NN kjJUWvyBO5NXMmpMXrV7Oj NTRjCC1uvdk4ZOV6ITjiRR NmGuS9JTMclLXuASRrhZlv RUwji105MHR4OyLhBYLlxq MtsNitwS5yXmXvEKT9YBVt TApgNWimPINyMUq3FnLaWY N4JKA5RFywACOfmt5= CLINICAL DATA (test p2vkePWwZFCojBV1DwOaCV code = 3355) Dfv0xny9FbnOTavPBxJRsx dVVpicKjnr88tVD7dF73RP 0qGYGxItL8MVGtktB5Zsk0 QZVsVCGwsJZxN483x2stm2 wlduFqpCD7BHSvGTYmN2Lv QY3xJOLpfPDvG65hwBXtAF U5FAJbDKSjbAIdNVXxKUS3 QXMlmWPsU1fpXKVpLH3mrt fuBJnePMkfCIAecSY4LFPa oXCdU1VqVZFvLAbuIQFluz e4XcYvLw0fdMHrmRgaNEcb YXJkXHBsYWluXGZzMjBcY2 LuESe9TZfzrj1qjoTtuLXo ZVx+k9j3kTQOLNkdh8NyRQ 5IRnJFRiAoRUYgNDAtNDQl BGfxY0XHUVVmSBAzUuyecJ L9ZQE5KXUbQaFcqnHxvWFe IGNhbmNlciwgXGNmMCBtYW lkG41qyuYpnWakmUSpqVLf PbT8v2vpvrKmHJNvcq9fmG XdoIbse3brKzTwVTAwaZBw xS8afMPmXWrnzXVjPWmwiy AyTCBOQyksXGNmMVx+cmVj EN15HEXgfTg5POVzltNlZ8 Q2VAXawvOeeIJghhnlVSTa icAcZZsfsZGoYM6zMJDcRy UaBzFdSTRcPfbpDvOoAH1p Q9LiFPDfEZWmquZpNZVtOE EgdHJhbnNmZXIgZnJvbSBC xiS8w8Llk4D6CXEedjHerK E2bTTtNXB0XKt2MGJhn04n z2EeYIDll97mCO5wRNPhTR IUJRDqZD5cwYHmmX== SPECIMEN SOURCE (test i8mwsPHdCOAqgLQ4GyPaEE code = 3377) Sgv5ift5RyqBRrtUNsZBzq dFDwlbUxwx99jZK3kK72CZ 8wFTDiCgO2XBIgzpM7Eoc7 ZPVuWHNniPSvE404p8xzo1 ulthVnfSW1dZtoULOyuaaw OkL7ZTsaYATolswwXBo8RS toARWmoGU8EQFjkOYmP7Oe BXWpVM7rpoy5NSB3LJzxXW YsVnS3DKWavDXuLSDqeUun TVyaz702EDH9RbHgECOxag ScwTrtvD3uVjAgCGSMQFDZ IFBMRVVSQUwgRkxVSURccG FyfQ== GROSS DESCRIPTION (test m5zcpEWoLDLfwTNFUSBvM2 code = [id number]) jjmiEjHQItrSKqH4Dfxpyt SCowKM4vHT3tzEekdTGxdW DbSK0PQQKuMyGrYDMtoUSg caMlUjWqVDMheILxfAA0OE OaBP5zzfpzOEznTKbePBIb igW0GIIdxAZzT3KqZENvBI 4givvvURD5KNzxaJ0cbnPD JwcoIo3ipNCooDwvDyDvMz NoYXJzZXQwXGZuaWwgQXJp HLu8zJ2QQklnOIZ8EGZMUd sbCRWtIG0Ub3quXFUbcFLd NMK8JVmwwWZgBHCmDTAnPL f0RVDfKRfijQBoDD1dlIhh QizspAxex9HzxADuFAxxZR EzCRFlPOluVDKlNS2FUuZu NDShILPhZMfeIPn4KHm2TZ 9WUyAiICAzMTAxNzIwNiIg LYu9FCniRY4UIRPaUDf5YT btMrK3VTZ2LbTmHNKrQiMr XGYgQXJpYWwgXFxmbCBcXG 2keFsucMZjzoMSLlHUbQJ5 uyKsWUUNFIN9KcwrBTWdWE ccVETiR08ki3LBb2FzBY4U BRf3jdWglprjjV2jFOJkgg KoQCgiwKDtJ3weIiVeSBDX EHKpuJBoSVC7UVHvdYziNF FtYmVyIGZsdWlkOyBwcmVw NREfLBU0PFI1hD0niKfyvb DlqhQrK2HsuAZsbX6ftkkQ WrivVFGnb0RrnAvfGCMxwJ nsHyarD5qqy0ApkMMtHPDb eZFpqxxxpHNxFXDoQoa5AA OkioHfdE4emXcvOGF2rSWa nsAjFUCjc47iJEUarBrzES TjJTTydXM4GNFlSio0YDZj oV5nRj8kgZXvxR5fQNYqTY Q7ERQvdM5or13gXZPuLnCt MjAyMiANClxwbGFpblxlcG swOsAytCKuYaOwgZuinA71 AZExvVPlBID1QB6zPSCexc ceLDApWFXaCND6SEnurY63 zGOrYKPwNYKmjOPqhA3CEA BwXPR0HRvmuP04oUUtNM1R YELoFTQ8CKYyaHYiRXP7IM 4alN0ZvN== MICROSCOPIC DESCRIPTION v8pdoPBaUXUbeAH0EkJqCD (test code = 3371) Icm6piy9RtcZRfwLRzKBnu yOGihmMmox35pCT9zB44YB 4aHNXbWlB4FEDnowF0Qtn3 HFEoPBQbmVUkV292j0lsx8 pdlnEcuHS4nTwuQIYvqblj SgR6WCikAVSapjkxMWw5MW bcCUHvgMZ0KVJxlZVhZ2Ez QIBeAB6wjby4XZK4PBjzSB HjXwU7SQQchQBsQOTaePac SVsch593JWZ9YwHtTKEpdf WknElszO7iNdBvLOBSIZLs z4AnNMNcWEruLXJ2 STATEMENT OF ADEQUACY Satisfactory (test code = 2757) SPECIAL STUDIES (test a1tkpFMcPWRyu6xxOFNrrR code = 3376) FuZzEwMzNcZnRuYmpcdWMx UPyqqkCnEYhzi7WdQ9QhRk AwMFxhbnNpXGRlZmxhbmcx WZPjPXJ1rqUnBVKyQSfdAX ThDXmoSd3ywYCvyDrxIoGe WDXez8qdshCLiysxsAo7n8 prISXrHcZ3sCPnFHvkN0ni otJlsWIhC1UwdIYnqGg8i9 toCeFvUuO9qJXxQGfnQ4qu udCyjEEzAMFhQDh6bN31YP EmxS7fnAZaUMgkdvSjFjV9 AAhdUWMdSwP7GKIcaJBxOY RjB0feZRTbVIqxATUvIZab lVEzYMO6dNjce4R1dHPboA BqpUbaQxOoGxPiHzYXm3Vn IUy1xPfeX6TaQFEdViN3cG QgUGFyYWdyYXBoIEZvbnQ7 kJftdhYzx54isBRjCIClTX HvMtZxlKwrAYVlQRBDe6Ls zAcmCLV3dNm0rRseAvbjGJ F3Jxa7FM6vfl29lou7nKjw EHPnjcapKbO5VAarKKSrks zkFQq4TQdlVCWjqQH6OYBj jJBdI4XmQQQrWX7otnq2CY H5ZTakRZYkGtH7PCZyuFXm LTLpfBocMFsou113TGL1Yh PyKH2lJ4Orm4I2xI2ozFXu GMFegHUoUlMnCNYafw9fpX QgOPdlf0LuKZS6hhZ0fTBc cHBuLCEsJI65Rfcpj8EfBl pwz0AzE94oaEK0HNyci4aj LX9oMzE6nwVrLBlea0wbsB 4mGeQ9YLjyND7aQR2rWBSo mJ9wgcjjPIWyUjBikowzWI DqqAyyndWcOp6dcMouHUY2 AXduP3yjyU5lWlJ7FDiqE8 mgqI9aZTo5NUjtgXZ8XENp jK0rWO7pbmrau2nzDVgnVJ ngBNUhurW6nhG0ZNOddBJv Y8DykJ9dSPQpWN3bxpnoq5 omVPD1NEexHVRzLSC2XuCu HXVxp8Chtdd3VwDxu9AajJ GjUPygU11zn855FFTtljLg C8eslXGvulnjxSRqswobSY dbixH0MLWgBNAbKMvlEIIv XGZzMjJcbGFuZzEwMzNcaG ljaFxmMVxkYmNoXGYxXGxv O7isMwXhM1JrMOMiErDaIS hlCJvciXEmiJVzyBL5wV3k VD3cZRMrzSVaR2DoWAMlug UcyTPxOBQ4vWEtsYKfSH5g TWdjgFBqb2juf0ZjK5usuH mzmCP4NT0iIIVaZAYwAKxt m7IeiO7uQhblgEQboltrUE xmczIyXGxhbmcxMDMzXGhp T7uoRdXbPQOhwYatUPktw1 NoXGYxXGNmMlxmczIyXGx0 cmNoXHBhclxwYXJccGxhaW 0eCrShTgIzLwkoBW2dPZVu O9daqQYxIZPzEGAqE6bpRs TrgQ1owDgpFOueXgGoXeMz OdSSw289hl9bWXZfdFBliq ZFxPSucM8dWNhnPKwxRSnd lAGdDWybb6uyCIFui0t5oU CrGKRoiqRrp9psWLogbkBa XWKhmMDelWGjOFOmo49gGQ vwcXaxpDwlKYMcg4YuvRlc y2LaTzGsKQpus8PgX38ibW JvbCBzbGlkZXMgcnVuIGFs s80oe9mePTIeGlU6cLMwbG N7iYQpiIVar5BkwEwrERUl v5gvNGUbzl3gkoqjmETei1 WrkJ7isrbgNSqfyTUyfiIe AOJqg2k9zRAyDHUmMMIqSV iqnXi1BCXni560kw1updD6 aVUeOOW3MSajOYXcJHUmmr UgZXZhbHVhdGVkXHBsYWlu XGYxXGZzMjJcbGFuZzEwMz NcaGljaFxmMVxkYmNoXGYx AUlsB7vwZyInF5XaRAXzJi WwrZNlY6drfLGoRMHeBEzg XGYxXGZzMjJcbGFuZzEwMz NcaGljaFxmMVxkYmNoXGYx BRojS3sfLeBdO9GiUTWwGm IgIFxwbGFpblxmMVxmczIy UBklfsmoPZGrTKizS1cxUm MgOSZspCirMMnkk7FnGLWv MXRoRptshzQlMMi8scPjCA BhclxwbGFpblxmMVxmczIy WGgmgeauYPVaQVujP9zpHd MbJJShmFbdPFwam5IhQLIi XGNmMlxmczIyIEltbXVub2 tou7CoY9wisIvmnJB7YJRa G4vcbPWjnQD6MUU6tP5cFS iyzuCsCZSns0FhXOReEXEm FwS5jQ0uNUE3NtBIvTkpYS BsYWluXGYxXGZzMjJcbGFu ZzEwMzNcaGljaFxmMVxkYm MaTFXrBEprY1saCdLgE3Ht VKEuLkRpqTtfQDcqWZd7Vx xwbGFpblxmMVxmczIyXGxh raogUDWsXNvwA5ryUgNsJH WmoFqcAUsgs4XaPOEdEQOz MlxmczIyIHMgTWVkaWNhbC GMCQ68TWChENUhwRhmnM3q dZMJIGMtsaB4c7W9CPvfJG PtTVy5BKbweeIuPUFwyL7b VVGnFJ4lSKn5ueIhMDJyk5 IbYP7kIDOaeLStUQH0XFSq y0UuN0Pek6WrGRCzDXFoog 0yneOzUvNCgPQmVLFtde66 DUPdZS7mX9yhAWSjQAPnfv MfiZZgy4WhAMDejBV4vTAu SD1AOaAVf52eAJHoTSEQab UtSWFciIwxcGB4qmU1mZ5x LiBUaGUgRkRBIGhhcyBkZX Ebge5jaiEvGHKwQCIpz7Ax tAVxfKKxwbPmQ0Vfj1KyKY Vnhk92ZJmysKBpwj36UG5z M1Vrd4UelB8tKVfeHINqo3 XegBKewRXbROAxv6YsE4cl oztcRNzrvMEkoN0hCECtYQ z0YSUfq1WtCQGnj9TmBnIp wwHdAKZmOHOsDHOjbR91JS E1gNfjlGnpvkUjVE2nXCPj xwQlCYKwAGChuA6qHLvcxi FsBTSdtoC0q0I6RGtkCWCr zvFrTphaYUP4efQwgtE9kF HkK7nqrhwfCIlfOPMhu1Ra qW6puWCVcXAem5RngVUhsG WYpOYzHK3atuNoQG4cONI1 ODggKENMSUEtODgpIGFzIH L9IEjiQlakUKH7ivIdZTSu r8MtOJhxK4hmA16csMxogD s7zBJuxFhunILzbJKfMOEs bfE3t5U4RPJjt8RyxqkoJC BsYWluXGYyXGZzMjJcbGFu ZzEwMzNcaGljaFxmMlxkYm VzIIIcNDpsP6faEaZsVqFp UfbaGJL3uX== Gross assessment was [facility] performed at ([facility], = 2777) Department of Pathology, [address] [place] [address], Technical component was [facility] performed at ([facility], = 2778) Department of Pathology, [address] [place] [address], Professional component [facility] was performed at ([facility], code = 2779) Department of Pathology, [address] [place] [address], [facility] 15[facility]38:03 Test Item Value Reference Range Interpretation Comments Case Report (test code Medical Cytology = 104) Report Case: [id number] Authorizing Provider: Minal Joy MD Collected: 10/08/2022 02:53 PM Ordering Location: [address] Received: 10/10/2022 09:36 AM Service Pathologist: Jimena Anton MD Specimen: Pleural, Left DIAGNOSIS (test code = [id number] 3220) FuZzEwMzNcZnRuYmpcdWMx IHtccnRmMVxlcGljOTYwMl xlgaSvNDQsaQAdT0Tlyecm QVuiLI9lQV6wvChyjTPfnS PkYTMbTzEde6pkk861uNPl l4czTHCRenmnoBy3zXegU3 1xs0U6WkchH16tiLFsCYI2 JQGnAQOnlQNmVXVbOXX6AO PxyBZnT8ezKZFxWR2tzmlq WMcbRJelSDCphFK6DSCwwV VjX0LuWDZtVHhkPKCcfun3 SfHnWj3hnVTdmBsoESucAP JkXHBsYWluXGZzMjAgTEVG VCBQTEVVUkFMIEZMVUlEIC kQCQYCE1KSMjDoJL8UXPHA AOdwQfoXC7ysUglcgP2zMF RsWK2vQJGNKlUpACXUKBlP MXkyS5WVATLoJNZIM1QQI5 mMGAXrXw8JPO9OYMdNYbXQ A6mvYYWVUZRAM74KVD9VZO kdMWP9w4oakYPiUESltQXc ODAwMFxhbnNpXGRlZmxhbm azMMMjCBE8gmWqYNRoXJpa YLGqXTahNr2ftFFhhLclJm OnHITlv0dbelLNrdhdnKh3 m5ztNIVqMkM7aIZiWBycM8 owckTgnOSuDPVyYXa5cX38 YWGtuL5pmDPtDFlnerMuVc R7NForIXHlMvU8SYYuiOFo HQLsF5oxEYLwBPnyAMZkKR pmdQCbDJQ1nKgvk9G7iVBb aGVldHtcZjBcZnMyMiBOb3 QpHWl2aPafZ8ZvGYQlNfQ7 bHQgUGFyYWdyYXBoIEZvbn F4fG38KUkafhZ7yMUeg4Nn q24xm907rQ9huZHjGNR1JZ CeKGUlaPCqSBSaNPQ3WXVf hLWnZ4xzUCDtFW3alpwoXO qaBUdfNADhiCO0SWQztKVm M1XyQJWeJLdmKNTklqj0Bz FzEz7ycFFexQqpCCkuw9uf a3mjkPMtKmv4UIFaQrToUw erTDepe7Cly3iiKUSevx8c DWM7bUOygXoqy5E9gPBcIS ErhMZxBHDcWI5xdYBtUYOj lZ6oycfdSXHnBhRbzkrnZW JqfIjopjCnEz3vtDiwTKK4 HQltM9djfC5iVyM6HJalA9 wwaR7eNOw0RRmwHLZbwTO9 vlG2KVWjeEGbN9GvoQ7oKU VuEP4yvjp3m0poHDM5LDaq WICrOmQ6hhF4SQEnxQEdZC XuhNvhJWtqp432RHZ9CeQv BORwu5LaX1JrwHdwC67pdD atL66xHJUmfSqsoH7sdNdm vB7zEcIbFuWwZQcqiPhlXF 7hCBXvC8usfTAbLRDzLKHs J2gfUlKloV2tsOgkJTtjka EaLJPaBor5LPGhkEUoFYRf Ibm6ZNPfPDHuU56ktmiyPE D2fV7yp8tqc3ZnNKtoEXB2 HERjm31pKFibreE2QFoqWx 00ZHeeOFS8ONowPKX6bU== COMMENT (test code = q7ndqPLpNQBumLG9EqImRN 9518) Imn4qdg1MvrTNgsWGeMSjd tXDaqzNemo27jBC7uP74PU 1zOJOqIcA2MHUeswL3Frf6 ZISyXPMbpXOlO878m6but2 fkpgKqfNO1xOsxOULunjih WiO8DBboJICeamalQEd1AZ saWFCfkBQ2TXTjqGBdG2Ga SGSiNS6xhxy2LUX5ILacFP JkZpF1PGZzvWQsLMPnaZvx BYdjg108MAE8TfInWGAwqe GhaVngrZ2bKfVzBTZToTJi q2RvE6ffSF6rcSRjB97ioQ 3xLYMvw0MdqbTfT9YeanWo pUMrg5QpTIucAElxI8YzrO MiUH7gKBOvpv2rpAPxoN3c mMLoxWU8vA2jJoDXzmA1pD OaY6WvbOWaoP7mjhSvSZQm qkvxfFcgCM4pODH6rWsvEE tcD1PbjTMdo2JxKJLuzUht bGlhbCBjZWxscyBpcyBpZG CzsQokuBSkGCPiHJMcu0Ff bP4qENObo1a1cMAkxYmrSl 7lPTMukE26NORYN0ElKTxu QzWqYOWoYM6mGFjka1RcS3 CsoTEiZPEhHA3wuPWwJIIo uNd7ARitZP85kGOzRNLpj1 2kaUanXVB1hE8ouUjkmwfv UoM1ZXIictJeOYFzt0Ebn3 0bLHRew8S8ZGswUwUFiBOf ZWZvcmUsIHRoZXNlIGZpbm RpbmdzIGFyZSBpbnRlcnBy ZXRlZCBhcyBhdHlwaWNhbC XrDRgiwlcgh2CvlEivuP37 cpPxy8NqoTCfcFexQV8ycV 0rZJWdotbjSQKjHu2cV8Ix QLERPWChz88pdNQmADpfaV nscPbts1JyJnydOZxzO9Ks XHBhcn0= CPT Code(s) (test code p3zlnRPiFJNweMQ0IbDyGQ = 3357) Dzy0vql9NtwICetKVgXKij sLZgciSnwx19dQV2mI74QI 1yONOzKbW3WKOkmcU7Gjn2 XPSxZVLwvXCnN014c1naf8 pzieImqFK3cUlcSLVonbjm NhX5PXbnRVCgyaueIRw0ZM tjQPJesEG3QWUdrSCgO4Iy LFNtOV8kvwo0UTE3EUlmHU XyAiX4KSYvtVQbNASonQmh BOhzv366ZPA7VyWyEWDuod RmoXpxbR1hJuFuSJB8RAJv XIifVIfvMRSsLMi4HnZcVJ N3PZV2SUaiYTJmrt2= CLINICAL DATA (test o1pcpNXzYAOdsPN4GhKhRT code = 3355) Ryt4fka2ZarXJeeYMuBBcj bPIhskIkpr92rOJ6yC71JB 0fOZNsUrP7TPKlsmT2Uhr5 ZEUkKSTidEJjA193w8nuw7 sfgvQzgLA6MANfJZRnJ8Su FG0lGHQxiVGxZ37qkLDwBE G2DNElAGGpjZQyEJFdHTF7 OWEqkZUzR1xnKSLpXF6yvp yeJNtbXWtkYFTuzRG1VRZy rGJvQ4ImABSkYLvpSGByzx b3FkNzBc6mcEMufFsnRSbj YXJkXHBsYWluXGZzMjBcY2 XmNEx3VZlpyh4dwuLxkSOf ZVx+l6m1tCNSCOvhg7VrOL 5IRnJFRiAoRUYgNDAtNDQl DZtaR3YAOLKbDHQnGlwtoC I0VCE6CZFlFfIqajLhwIYe IGNhbmNlciwgXGNmMCBtYW wfC46meiXdpPtdhBUyqBJh VwB0s6bcygHgHDUhcs0lpQ TloCstv4poKcQkXGRmdKTc yP2fzBRpFFjrcBWlFIavgc AyTCBOQyksXGNmMVx+cmVj WW46NQKqeOh7FNYplsHrB1 C9FHIdkhRewPKtseddDYDq heGjVBtetSFuSB1iQCRoNb LlUxXxFYJlJqczNrXuSC4l N8SnNKIuKIOdywLuXPNsHV EgdHJhbnNmZXIgZnJvbSBC yyX4t9Bsc7E5SIJovxObbJ R5mIVhMFH2JYd3GKBny36h p3MdEKTob98hIC1nOBYpXW UPCBYmKO1txFXcuB== SPECIMEN SOURCE (test f3kdqTTcMIDpaGE3LfAeXQ code = 3377) Wrj9ggl3XtkGGghHHzLOka qDSzbfXbmf95lOL5mM16MX 4dDALbZgV8VUQgftO3Evw9 YGQyRCTmbVQcS691l1xir4 cgghAolJZ5zAczQEGpxvwz FeN3GQqeQYLamnydFZm8RW erEAOnxTN3FYDxlWLpS2Cv CTLxVT4ulek6ZRZ6GRxgPU XyRrM5DCAzeHUzJHMvkRwk ZGjua940CGJ2DtNuNTTadl JkuJrkxS7yZzLlBPHLCSEL IFBMRVVSQUwgRkxVSURccG FyfQ== GROSS DESCRIPTION (test y5bzsEWcAYBotIBESDPzJ1 code = 2800267300) wpjpHtEVGqdFJvT1Gggapl OSnaZQ8kHH7upQvisSSguD UpKG5OBCAaBdIuHEEauZMw pgLaPgQvXUCksLOtoEA1VO KcIT9gtpuyIMssQSzeFUCs svT5PSBiuHBoV1HlPLLjOI 1sqmffKFJ7XXdqrD6akaUO WzgiCl2hkJVdiYtvMrQsJn NoYXJzZXQwXGZuaWwgQXJp OLv1tI3PRkohVHC0ACPVAa lzNQOiHK8Ny4uyLRPmhEVb ODI0ORcahVQaACQxHYTcVW u3YQViTZgbzUYzLE4bpKfd MichiOavc0HsnEOgFEgcTS JoEGOpYNovOALpSL6AAhOy QETnKHYsXQskIUg7APo8JG 9WUyAiICAzMTAxNzIwNiIg UCe4MEcgLB3LLOVdXVq6IJ gfAyS1ZFJ3OeAeSSNkPrNd XGYgQXJpYWwgXFxmbCBcXG 2zrXfpgUNzojVOVmTYeRD3 ypHuODQRTXV4KeltRNIgES haTELiM95ny8QQs9WgJC7R KAa6flBzkhnzlM2mFOElos ImPPrjoINnX7fuGxFeAKYS XMHyzBSaYHC9JSQepXglFT FtYmVyIGZsdWlkOyBwcmVw WWBkTXH9YIQ0yI6kwZcsom LrogYpM9SixKBlkD9gcmzC LrewLVRma0VbdRgzGYRowX xwJdwyM0rtk2HsqARxIUKp vQInqwzwgDEuFINzOdv2EC IlclEjsH2yeIivJRB2yHGa reZqSMWmx55yGBHktPntJY DjWKSluNX3SCEuOih4IVFl kS5bYx2zrFRrkS9oSOGsHH B7HQPgbC1ao95hQCJlLtDm MjAyMiANClxwbGFpblxlcG eeOnTihQJwTrUowApgoV17 VSLuaUTbDAV0CT5hNSUbyn lpEUWjAIJbXFU8DZxfjR13 pPLwNOYdHKNctVYncK5PRQ CsMAD8NExqdY05oQGuMY7X ZBRzZFS3WJYajMDbWAI1XS 5reL3AuO== MICROSCOPIC DESCRIPTION a9quyLWxVFVqdBU7ByPxHV (test code = 3371) Dhq4lvd1SiwLMipTRmXTor kBGzozOgyi64fGN4gU43CI 9cGWZaHwY2JTSmlmG8Bmt0 QBTsFLXunAVrI095k3hri0 soxfVmwZT5gJkhSHOmlyzf AlY5BTusPVTvpovdNZq7UT jsPYAsyHD4ELTcgZNrU1Om JNZqDX6eqkd1XNO1GTtlAR QbOnU8DCSunHAqGIDccQkd ZIczj146XQL3RtJcTMDpkv XrvAltlH4xFqLcBVDGMRBv h4NkJUAdJCqoIYJ4 STATEMENT OF ADEQUACY Satisfactory (test code = 2757) SPECIAL STUDIES (test n5czgZHwJWDka5jhONPgoM code = 3376) FuZzEwMzNcZnRuYmpcdWMx CRxxmhKpOArfi3PgG6YiNk AwMFxhbnNpXGRlZmxhbmcx FGQjPPX1fqCyZMUnNOjzAF RhAUsyOf2xrDGeyOxyXoZu CAMyy8sqojIJzxuepJu2i1 jxCCVfOyS8uEZaJEfoA7jd szQjhJKuJ2KvwRKabId3s7 llPfNpFtN4xEMaKPjoX4cy vzZflXVsZRSfTEj2rE68OP SzbF2bkWShMYghrvAeAyW5 UGwyRUWgQoG5SIGziBPqUA TdF1yxWRFoQQtwUAZbCPzn wGRsAVP7uCunr4Y8vPRtcK AzmAfhTiViBmJfRlQDy9Jm HYd1jBauK7XeUOKeOdM4yF QgUGFyYWdyYXBoIEZvbnQ7 zWfjcpFyb77arSVpMFIcVC YoFjWduIqsOIMnMYISb0Tq nGpzVXB7zXx0gMwbTdptEQ Z2Ofj0AY2hpt25kbv6rTwa DGYdtwcdSdJ2OIsdYCAizw ioVNo6TJqjONQhyPO0AFQj bKByK5BmWEGdSV3foxq5KX M5AIqdQLPsGfF3PARjqXEk DIFmbFcyHWgyu015SIU0Cp AxCJ0qZ6Icw1D9pS2ssHTn WXGuxIKgLwCcAAUcfv5utI PnAGvec4BrODQ5lsR0sHCw xAZyNTLoQQ96Rqbpv1JhBh rfv6WuJ02elTF6DEklu0rj SC5uVfO6amIkGDyop6vzfP 6aAaX5WNpmBV5bUQ0lISFb uT6mmnorWTOlKmLzhuctCQ SukJnxmsWaNt0boZmwMQL6 EKyaY6xveA8vRmH5KUlnM1 lppI8xMTb1UAhkqHD4OYQx mJ1bOY0spzrfr6upFTyaHE xaSMEmuvW4exC0GYXbvSGb D3IbpC1fXDThRZ6xyesnv3 zoMEH8YUsfYBQrGYO6QnUw DCBwr5Blhhm4NwMcp4KthB WoQFxnC83wv693GVHtyuAs C8kefDBklerudMLpmrsdVT tnpeN2HEJoGRHhOQubMQQw XGZzMjJcbGFuZzEwMzNcaG ljaFxmMVxkYmNoXGYxXGxv L3iiEyYaI4EhMPPkLdNsFX chKMjdeRUbiCPmlAG5gM3d XB0aOLDvhXVwQ7YbFLNyaq FsoKIfKSU0cIEdkWMnIT7q NPcmlBKwx0wut1WnA2vnfF ppnCA9ZF8oOQNoMGYpUWrl a8YvwL8cBnfgeIEecblaDA xmczIyXGxhbmcxMDMzXGhp J5qnXeXgTYHvlTduORxwq8 NoXGYxXGNmMlxmczIyXGx0 cmNoXHBhclxwYXJccGxhaW 7rIwAtLiMgLdsrEN8xKQMs N4xfuLYfDVDqEPJjR2ppMz VgbE1jsLouQDktZwKvRlWz GtAOw291mf1qSZSnwCOlva BFaBJgiX7dYZbaZRmkVJoz yBQmHBpxr4agGNVek7y8eJ OhOMJlazUde9sxOMjuepMh BFUeeRMvkONfEJRap45tBV iucVnhdEegTKBjb5ZtkYfg y4RiHhBpGJwil3CqL28yuH JvbCBzbGlkZXMgcnVuIGFs c43sp5mjVVAzGuF5fACfbI I2xMCmlHGdq4QknRnxSDRi u7dsWGCiox4lwfarvXHpm0 ZwfY0jchfzXKqgyKWapoWq CLJnu4i9yUUrWHNbVDPzSO vghEx3UGVar075oc9vggT1 eFExJMR5RAbjHUTkOCSjnm UgZXZhbHVhdGVkXHBsYWlu XGYxXGZzMjJcbGFuZzEwMz NcaGljaFxmMVxkYmNoXGYx XJexR5mgErNlW1FkTIInYc XgdIUtH2rolNQvYVHvUSzg XGYxXGZzMjJcbGFuZzEwMz NcaGljaFxmMVxkYmNoXGYx DSdnH4lrCnIrK9MeCQOfOr IgIFxwbGFpblxmMVxmczIy JRjcietkLXRzJPlrH6zjPj IqDEWcgZibNSomf5YjEJTo ZCDuTckdmyXeYQh7knYyAD BhclxwbGFpblxmMVxmczIy NSlqaxhqNMQmBRacD7saRl GcRISqsYzsRYbji3GhTDWg XGNmMlxmczIyIEltbXVub2 usb3JkJ2hcjJzcaJK7DSZu G1lecSCssWS8UDI4jZ2fZT zknmYyDFSgm3DnFIJrTDAn MtD2eH1hIPU6WeWNdEojRJ BsYWluXGYxXGZzMjJcbGFu ZzEwMzNcaGljaFxmMVxkYm AcJRGuWKonC7abWpMoB3Fs KETdHqTptLecBGryBYv3Gv xwbGFpblxmMVxmczIyXGxh eabsKKLpVSaqH1trDvJfIS BybKmaWVifi6LkPGJdBPDz MlxmczIyIHMgTWVkaWNhbC XPJL08VKVjXPElvUtdkC2k pLFMGUBkxbV8h7R5NSskCG ErZCw3XWubhgWpEZVrrS6y UJEwTI8hDPd3fmWrUFExn0 ZkCK1wLLUtjAXpNWM9SEHi o2PeT6Scq5ExWVMeBEQwvy 0rgfYkJaCWpKHpAHUhhb99 JVErOJ9fJ7ptRIZrKDBfhx MzqKYyn1IvJFLchKS0dVWz EH6QDzCYf63rBYWlVQQLru AqNGXtnErshSQ7mwE1vH5p LiBUaGUgRkRBIGhhcyBkZX Soka2djnRcKCNuRVOiv5Uq wTWqtYGqwiHkT9Bac1BrBT Roor22NCzpzAHnis79LS1m W9Uvr8EliB3gRYcdIXNmr4 SbxJAmpXHjAJSuv4YrE0oh qrvlJUlupLYafR1tKSObWJ p5QISfx1RwQVPow4VlQxQm cvYhSCLqKGVvBLSmuZ26VJ H3pDyeyMjnneUcED4zJEQx fyUeBSMyMQJbnU1yHSeunu AuBIEytgN9b3E2PPocWKMa amWvCfrfEJZ2lnYvkbM7bY FsA8rfmvlnCMxoIXDme1Ev aS9bqDRGoDShj3HbcBPxfU DKiFFtIO8ahiUaBR1yEYM3 ODggKENMSUEtODgpIGFzIH A3KHewTohmPWK5mzFmUOGs a8MkKBkvP6kpC93drCdjeB y3nYYuzXamaORuvBCmLOBk knU9g4D1VFIog0QandwlDN BsYWluXGYyXGZzMjJcbGFu ZzEwMzNcaGljaFxmMlxkYm UeGCZuFOjxO3agQfWhCqAx SumqFSB8uI== Gross assessment was [facility] performed at ([facility], = 2777) Department of Pathology, [address] [place] [address], Technical component was [facility] performed at ([facility], = 2778) Department of Pathology, [address] [place] [address], Professional component [facility] was performed at ([facility], code = 2779) Department of Pathology, [address] [place] [address], [facility] 15[facility]38:03 Test Item Value Reference Range Interpretation Comments Case Report (test code Medical Cytology = 104) Report Case: [id number] Authorizing Provider: Minal Joy MD Collected: 10/08/2022 02:53 PM Ordering Location: [address] Received: 10/10/2022 09:36 AM Service Pathologist: Jimena Anton MD Specimen: Pleural, Left DIAGNOSIS (test code = [id number] 3220) FuZzEwMzNcZnRuYmpcdWMx IHtccnRmMVxlcGljOTYwMl tcukDwFXJbeRSwE2Bwjejx OJheXV7zCH7izYqdcJYfcG OgCLLnRcWkw9nnf407oLPn l7owRORUfnathNc8vQzjZ8 1oj6L7OcfnG30tfWVgDOT7 UETwTUGujWMkJBBvVGC6FD DoxZDrU3zkZVLfQY9xqiqf ZNlxPKlzZUTtjBB8MQQkyS TnN6YgTGCuVKpcINLtrea7 MoMxVu9cuUQowMlwLRrxHA JkXHBsYWluXGZzMjAgTEVG VCBQTEVVUkFMIEZMVUlEIC iQSWWQB0ZDFcVzFA9VEUTK QIpoArcLJ0coWnigtH7hCB EoPW1zJOWGHjElIZFQYFaY MKzgF6REFQZdQMKAL1TMD3 xVWEPoDk7KZK6UTDjTMuBY S8thMZNZFDNML57WZK9JBM yrJHP8e7yitRHaMOTfmNOn ODAwMFxhbnNpXGRlZmxhbm nqYSQyPSW8bzSrRWEvHUco YOQpIZfgTl3auQHhsWkhAa ZzSCOzw9dympKUxfbarPi2 t2swQMZpOdH0eFIwPQnqI8 hwiiNezLBmFPKnKQr0aB98 MICynO8oiWQwJRruehXhUg J7QFraUSHhTnA7YDOzmYZl GLAcW7jfUGXjHOplEJXrNL ebjGFjUDG3tFkgy3U3gGUi aGVldHtcZjBcZnMyMiBOb3 PoJUx3wVmmF6HbGNAxCaS8 bHQgUGFyYWdyYXBoIEZvbn R4rU15FMfrgtT3jXDgr0Oz q28jc600hC3jfGQeCCP6JA QlTDBbqFRiUNZbCKR0NATp xIKzL1jfKEDlDH7txkieMN xwINavCOAwzGZ3SZCxnHQu D3ZdFXBiWZggWMKbylk9Yk IwZk9afERzoOwzXNuum1at m5uoaTSuVck3ZAVjAwVgWp tmOLqlp2Zuy5cwZCXnnc1y YSL7uIPkpTphb2Z0gOEwEC YygJCpTWAqYE5lbJIwTZPg nB9kdbxrUZEgVxNlikloGX QsdFsojmUvOz0kgHptQFA0 OTmdT0gecY7uZgJ5HZtlB1 hgeF4gQIj1ZPuaQUSjnOV2 atP3DSMdtFEnU2PtfH4bUE ZpJI6iaju9r5kcTMW8XDas MPMjVyS8ruQ3QCXllJSoBB KtyQlwEQfjm750SDE8CcRw ZPWqq6CbE0ZtzRnaK27xtF zzY71zCJLveNidcU2fqBjs kE0tVnBjLpUaOIlpxExqRV 4dCDCpC3shwDFtZDAnDPVq V6raAdOrjB7mfXucPMclrc LqLXIuSzc8YIVljBZzODYb Jzc6FDOaIZBzI77uwbfzXS N3sE1yd7kwy4EsLUlrFDY1 XWKsm93mQTthxmD6EFhpGk 25NTnyEBL3RPafETG1uS== COMMENT (test code = s3bqjKKfKECtwDV3KpWlPQ 0127) Cvw8kxs2GsjHRkyTGzAEdf eEXezeVteb05uSU3qK32CD 0jYAGbPuH7EASixzV6Twm9 ZCNjNSKfbIIwF536w7tyz1 ekyoGnuIJ5aYayBRYmlayc AwE3JUhuXTRideuuWSd2HE ywZVOeiSH9OGDqpABuR1Hc EJIpIZ2nemj4QWC8CAnmMK GgEyE8ZQIbrQHtQVMnwBfi DFbii000MDW7YzOaOWTfsz PpqYafvM8dDdXkPGGTsOLm c9YpA8ztVG5icMHrH11iwK 2zJFOtc3ZxmrQbU3KufwVs jJVzw5XqDQxjRQimI2ZucS GkZK6fDVXjbh6wmVGmwS2e sOGrrCR2mN4cCaYRyxM9pT HyZ8OuxMZetX4wyoOiKHSa hyvauSgeAH1iODJ4mJvhAK jwG2ChlUEfs6GaEMXfaGht bGlhbCBjZWxscyBpcyBpZG OwxVikvNCkIKWvEDNxr1Bs pW5tGAQvz8t9cOQvgVrgWb 7wTIYjqZ62TCPGI3LmJDdb CgWtRDMmHA5vNJtid4MpO8 CacHZmIUOiXG3ptRIdJFSf uYm9EYhcJN35hZHlYYBpl6 4rqZjeZIQ9cU1lcPgpoxbw LlN7KKZqyyIfYIIay6Njx1 7xBQPba9J7BLikUcQPoGKw ZWZvcmUsIHRoZXNlIGZpbm RpbmdzIGFyZSBpbnRlcnBy ZXRlZCBhcyBhdHlwaWNhbC ZdZXoiyiomy2ZztTiwyT83 biNrk2TxfBKywVndVP6okV 0iGHLvqhmjFRNrQt0dZ8Gg OYOJYHQpp62tcPEzKIxvoK tknFyjz2XkYlwlXHjzF6Lj XHBhcn0= CPT Code(s) (test code f9uqkEWpXYAsjZG8QjQtQE = 3357) Jrp2nzk8VcrZDvkLNfCTgg lHFoajCnkp53fYH0fU53KY 3jLRQeNiA4PRZfjwA1Ain5 JVScYWCgwIIgF687l8krn3 brccWkkTZ1kSoaWFSgdgul CwD4LPdsMGCtzryrIUn4JV nnPQEdoZJ4TWWqjLClD8Va TMMaEF5syzd3VDE9ODreJA WjQdW6FPWbmTNzDMGdkXmq LVery090BIP6GiBtUHTszt AanQsblI6wFcOzALW3WVSh MCtmXWmnNDYlNKh3UwDoMT P3MIF2DSovPTRrwp0= CLINICAL DATA (test s3fpaBFsZSRudJY2DkDyYP code = 3355) Frl5zvl4KknZEkvDFrREwv lBGkjfFnwr86tHL7aR81KV 4kEGAcSdS6FEJdyxR2Nri1 PMTaVVUezRXrN941e9jqn5 swamXnpIW8UKIjMSPdM5Lb SL0mUVUxhNGeB91mdUEaXZ J2XHQhLOXjmJYaTXYfZBY2 IGGlaZPaD2dmCCWuGV3fpt niJQbcGVlxFJYbuEV8OVTo dQEmV0RhMYTcLBasBQTtcd o0QaVmTh9tcKIctXpyHAjy YXJkXHBsYWluXGZzMjBcY2 LsBZn5ADqxjm6sklAruCCe ZVx+t1x3wWBKQLqdl7SlUA 5IRnJFRiAoRUYgNDAtNDQl JFcpK7MOCJYgOFOyTpzfwR F2DWW5OSLkXtFrdkNafHGa IGNhbmNlciwgXGNmMCBtYW uuM56kwmWpdAmnjBXieIQc TmY9f9ccdmZfMFYbzm0rgK KhaQevh1zjTvVkEKQxxIHg gW1cmIWbXLbifTOsRSonnd AyTCBOQyksXGNmMVx+cmVj OQ32QAYhsKs7IVIwkzQnV7 M6NBCxapDvvFBbqnmhJHDy grLiMNymbYJhNK9vKYFdXj YsHxHfKWZsDqatCbObKO4l T4HpSKFmIMRekpSmSOEhOA EgdHJhbnNmZXIgZnJvbSBC xuE6z5Gel1F0YNSavaTseF X7vMDuOOR7TSm5OSMvb31v o1CeZGFja99iYM0yWWNrYP DSYXTvYB7fkXPatE== SPECIMEN SOURCE (test c0vmlARqWUOukCP1NiSaTZ code = 3377) Bdo8hmz7OotFYfiAMxHWdl tHNesfZkdy37mVK2sU41HI 3yPNNdFtD9AXZbmcG2Wjq2 IZNfMKGzoQUxZ408t2dxb3 ucdlBmrQB4nWffUIKlmwgx RsO9TTmbBXQzamaiNOh1JP yaYADfgZA8GHScvEJaJ7Cf QCRjLO5kqrx7NDM5MIanTQ YtYcO8KKJbeUDzHIOkdFvz TMjmo461IOW8IaLaDLZzju JqkUugsE1zGlChVIJTVXHI IFBMRVVSQUwgRkxVSURccG FyfQ== GROSS DESCRIPTION (test c0jbkYHoCCBxyNQVGLHrW5 code = 7368845737) lkmuDvNMSkrPCeM3Pfclpl VFskQZ9eMA6uiNvasBVipU AiCJ7DJJHtRpBmHEKxrOFv bqMdIvVuORErrUPdjKA3FA UeAJ5kgiftIMofDCmbUDRo rjM0XHIfwDBiA5JyAZWvAK 2xneluKBY9MNuncL0fnrCT FmiqIn1bzQAksIgcLsFrDy NoYXJzZXQwXGZuaWwgQXJp OGa7sS0DCnrqCCJ2POTMMc tdZRPwRN0Uj3egSDAmsCYy FZL5VBaqfEIoXRToDRWbLK m5ESDpFIpeaKTtHJ9rdHhk BpabxSael9OzqCEqXOfgME UjSQDtNLzwOCIkXQ9IYgOt ZUFtUEKnAFmsFFk4KIf6LP 9WUyAiICAzMTAxNzIwNiIg SCq2XKezDG9ZKNLfKOi4MQ uhJuW0OVN2PfZzIQZgEfDv XGYgQXJpYWwgXFxmbCBcXG 7lxCcqfKEnddEMMvUNnIW3 boFgPIUJOOP1LinaAMCrWG tlZXGlH07ax2DGy7KoPO6Z MGu5xqHuvmgthB9iPFDrmk BuIPnrgMCpX6nmOzHtCTRO EPHepDStXIF8WJCkwDxiXD FtYmVyIGZsdWlkOyBwcmVw TOLvHSN7KJI1jF9dxWmyhj IhaoYtM2XelPWdvI7yhbrU WwxgIMAeb4SebHruMSMzdJ sfKtbaR2cqg0XojCSxFUPq xROcjmajpKXgFNNqGaw4HV FoeeYegY7zkUxgBWR5nDPs xuRwGVIrn96aYYDfnJnnWT WjULEyjXZ5TOAoVpk7JODa sB0nJv7crNDflD5aVCIfDM S7AWOcsX3fp98yOEDxUnJs MjAyMiANClxwbGFpblxlcG axJkWonLOwXfJcdNjuqU64 BIEtsODaSHJ5HK0dSQDtac xjSWIiHFEePCV4AHmykU97 sIZeJMLuDTHljFNclH4EUM MaDBK5CGxceI92lXMcZR0R QVGvMYO9WDQbpXPiSJC9QN 3wqB6EuK== MICROSCOPIC DESCRIPTION k2tmyXDlRNSijUX4LjEqCQ (test code = 3371) Tjm3fpq4ZsxLKdqQIiQSmy eAHjllGcfu53oZK4zU53OO 9tOSStNyH0BWDaxmW2Tby5 NZJfMPQacTEbX856k8vwl6 fdsiCtkCQ5sAjpVHUzoerg LgC4RVrgPIAnhlwdNLo9EG yfPHKotOC6IRFtpPSjG8Rk GKChLQ8axmy0SDU2UWazGZ EhZaP9FQOgvJCgLMUmaTdp LUlfz299YNX9SmUsFUUeoa CuvXwlxJ5xOdRjRBLLGXDe o0NwEYDtJGuuZLJ8 STATEMENT OF ADEQUACY Satisfactory (test code = 2757) SPECIAL STUDIES (test m6twsJZbCDHrl2stCMIzzX code = 3376) FuZzEwMzNcZnRuYmpcdWMx GTjsmxAjZUjnk3YoV2UpUh AwMFxhbnNpXGRlZmxhbmcx XDIpEEK0piMqMXAgDAqaPW YnLVdnAo4meHOnjEtyXoXo AVFqk4qmrgDZbmsdzGh8o7 naADKkXnN5sSExQGucB2pm mbIwiJTcP0IofOJctEk8q1 poMkMzGhH6zFNdQUnrX9zc zuBxgTUjHBZbDDh4jD41GV DnrV0goWYoXKfcdjEdIjY9 WKgiSSRiRkA5ATXrhCBlLV XbF0feDSVkBNzmHGZfSOwz dKIqBXE4tQjiy1C0lQIpqC ZksJdpXjMsGbUfMuSVx9Dl AFy4nLefK2QgQTVfKdY0vP QgUGFyYWdyYXBoIEZvbnQ7 rIcbutHvg15wzFCpTTBeMP WpHcGxiMbuEJEaPTZHd6Ci zPpyNBB8pGy4qEfjErwrYB I7Dej1ST0blx43msn4fAjm VVRowaxtXcY6LJhbYJBsjc szEIf2SPauPEDzqVN2XJJk uXZfU4ReCOOvPT5cgpa1RK T1KMjtIXFsJoL1NPJwcZOi FIXjpPmjUDuyr630KBP0Re BbLN8vP5Vif0K9oY0ljUUw VUFyiZYtKeZuMPAilp9mzL WkPZpeq3KuLKC0yoS3tMTr aCVaJDLcOF13Yoelk9QmXk cxs9PaX76kvTA1KEtsh0hf ZW8sHtE1asJqCAvnj4pybV 0hIbI6KEdoXD0sTL2eQCKb bX3srmktKWGkUtVrrcfxZG BmgWycyrZoDo7tqLqkPVR4 IIwrF0awfE2kNzS6WIlqU1 rxhV1uJSz7RQdwqUG4KHUo cI3cPZ5wlspsz9cjCUxzLY tiLUQyqaJ1suM9MQIfoVBt R2DjbR4rIFHxWY2ksfbbl9 uyMLA6SGmeJSJmYHY3SxYu NJKib8Dqhse2FvFze4GznU UoCUejT05cq896LVLcepAi I5nfgULkuklspHMhlupaLA orblG2VTHkNWJmNJsnAYZe XGZzMjJcbGFuZzEwMzNcaG ljaFxmMVxkYmNoXGYxXGxv B6neLoJwV1MaLCEvKfTlQP myQGbkuKYwoCLynIM3iB7w IL7iDJDbgIAtN0KzUHGvvy DrqHRtLEO8jAOvwTShGB2n XQssiRCcx9czq9LhL8zyrF ghuZY7VL3vATNoITFzHJir h1XleS0nWzdtnHMpyrfvWZ xmczIyXGxhbmcxMDMzXGhp A3bpYtGgAOOycUuhABhxs1 NoXGYxXGNmMlxmczIyXGx0 cmNoXHBhclxwYXJccGxhaW 5uAmBhPuJjVreuSB0mHYXh P9cwbQTnFGUfLITtK0beJz VvpA3vuBhcWCilClOgIjQe KoLLl710dn9eLLMecHAyzk EOsRKboW9ePBvwLIdaGVgk yDQiWIiws4ebRSZze0v8xT TcXDVtueLlp8wrKLqmxkXa YBLpvCBtwDHtXTDyz67rAX uloHtsbOrhBXIgk9ZloBue p9YbFxTfODhuy1NaD40jjL JvbCBzbGlkZXMgcnVuIGFs m95uw8szXDFqUwC7pDOleE S4yCCtyEJak8SnkBbeLZJq o4gdNYDgjb8ztqtcaSYuf6 HctR1xstboUEronUHzgdVt OUUcn6p3eUYvBIAyCJBaXQ pilRo1XBTpt478ia9gryF9 nZSdLQX3ABpxESRnUJOtar UgZXZhbHVhdGVkXHBsYWlu XGYxXGZzMjJcbGFuZzEwMz NcaGljaFxmMVxkYmNoXGYx GAcnK6ghNaGqB4SzKGPfBt LyjZNcV2nqcRAdOTMbDNiq XGYxXGZzMjJcbGFuZzEwMz NcaGljaFxmMVxkYmNoXGYx PHtxT4hqVwSrQ2EiHRBvMw IgIFxwbGFpblxmMVxmczIy HMqzvharCLTgRBgiX0hvSl BjVESznKtlKQuzk4VhEGDf NMObPeunhpXvFYy7szMyNT BhclxwbGFpblxmMVxmczIy GXoiufkiEFQaUTukT6gbLf MwHWArtIzxYMjfe8VmRGHt XGNmMlxmczIyIEltbXVub2 vze8LwI8cqqCssoKF7SHKt X5cffTPmgPY5WPV5lF9mXN frurTwWTBfr1PkKXPhBKSr YeN0pP8bZTS0DtDEbActTP BsYWluXGYxXGZzMjJcbGFu ZzEwMzNcaGljaFxmMVxkYm NvBIVuPMyxZ8chIfMrN8Fr RFGdRaLmlQsjHPzwWDz4Fe xwbGFpblxmMVxmczIyXGxh ypqaNJXaYCwmS0zxKtEqXC TriLzgDYcuj9NcXRQhNXWo MlxmczIyIHMgTWVkaWNhbC TTNO93ICUcHCAbmMihtI7k fCRGUBTqykV3x7U4VJjrDT MiUEq2YUabhsWtGKGgaL3z DOYoYY7sVYu1wdZfUZInd4 ZaYQ7jAJUgzZVpDZY1RONw b3RcM9Xfg4AdSRXwFFHuot 1tfcLxWyVUxOObARNjzp27 IHHxDG9gU5zbALRlZCCxlp PymBMfa7WvXGBlqPG2pDDl RX6VIlOVq78uZBBgVBJAxk JpPAVrxDaezPS4xzI5dC6e LiBUaGUgRkRBIGhhcyBkZX Iifa3fmbUfMOTuNITcc5Jb bQFhcFTclfCsJ9Scp4AsJS Knrb46YMdubBClro86EP5u W3Zxs6ZhtS6hKUtcKOOqk5 FyqRUocVCbICAmi8LxS1zq jqarZQfeiUArqQ5cZLEnCW b1WWVbd9AvUFQxu4PsNmVr iaRfIGIaJYMvEVTkbV29CH A8yMhvlZthvuIlPN9vWCBl qkYvMSNrNFGfnK6vZGsujq YaPNFhncI6e8E2JLrgRPAp uvCjFebjCRY8ppFokpZ9wR EnN0moktqhWHynEAZnd1Vi sF3ibYXYtYJsz5OyoHCzqM LFzZAcAJ2hvlIdXT5jIIO5 ODggKENMSUEtODgpIGFzIH K5ECofPqtkYAR8fyCnYSQo a4IkFZslG9xdV22nlArszQ f7cKAgpIwshHOqeYLuAPHp wmG9y6A7WSSie4OxexqeBH BsYWluXGYyXGZzMjJcbGFu ZzEwMzNcaGljaFxmMlxkYm QpHIEyTHcnO7ztZfUsAtUl EhtcMCI0vK== Gross assessment was [facility] performed at ([facility], = 2777) Department of Pathology, [address] [place] [address], Technical component was [facility] performed at ([facility], = 2778) Department of Pathology, [address] [place] [address], Professional component [facility] was performed at ([facility], code = 2779) Department of Pathology, [address] [place] [address], [facility]03 Test Item Value Reference Range Interpretation Comments Case Report (test code Medical Cytology = 104) Report Case: [id number] Authorizing Provider: Minal Joy MD Collected: 10/08/2022 02:53 PM Ordering Location: [address] Received: 10/10/2022 09:36 AM Service Pathologist: Jimena Anton MD Specimen: Pleural, Left DIAGNOSIS (test code = [id number] 3220) FuZzEwMzNcZnRuYmpcdWMx IHtccnRmMVxlcGljOTYwMl midhYrVFRvyGPzF6Rpuifi MOpbHC5pQF6paAzcoNIdqZ VkTLXtRjBgj2dxb237wETn e9trMAUApgircZd9fGnxX5 0on3Y9SvtkU05wkLXkQFQ2 TJImNNOsaKElKDIoVZG3FY SumRChT4qpHEKnPQ3jfnso XHpiLZjgHLGjfFM4VUAxoQ JcC4FzZEGnCXkzQNYkszs4 PcSoAq2noXKtqOdjHTemEF JkXHBsYWluXGZzMjAgTEVG VCBQTEVVUkFMIEZMVUlEIC vGDKQLM3KPRxXrGB0EGXFS PIsiClnGI3xbXhcxpI9iAF MtHI3aVJWHDePxPAGWUPtW SQvgR7QNOJLtHVHGF1WJL8 qMJMNhDr8LBB3ZJCfMGuXK M7bzRDJZXFTZE08MUT3AJC ppJZJ1o2pdzZYjCYZfiKBm ODAwMFxhbnNpXGRlZmxhbm jeAFJrHZA9oyPtAVMpVRhm LDMoEDpuIf4mcRFkqJhvRe UeZKCvg3uglmAWoegrkGu4 v1beLBWfZsX8aKVzPQlbE4 hssxUoiUYcAYPwWTr8cX98 HKMquS3cmFMwQWazrvTdTn E1JYtmCOBqLrE5UQGbeMFr CRDoD7ewAXSfBHjfTIDdCG gcxUGsBIA8aJpys8N9mXGv aGVldHtcZjBcZnMyMiBOb3 IsCBy6yVnzS5RvMFLqYoZ1 bHQgUGFyYWdyYXBoIEZvbn S3iI07PTlhqfF7xXDwq7Ki x00lz153nG8auJGnUQV0QC ZzJFVxnGFqUQAmURD4LEZb cBDhM9bpRNCdKU0unngcRJ wsBLrcNJCqzBV5SLLqdCSu N2CvFWSiKBwjABMlksh4Xg UyZv8eoZJdhBfwCFmbs5ka p2azxLNqHlv9CLPnPbAsHl lfOYcyh3Pah2dlXHBduv6b EHO7iHPdoLpkl2B9nGWrST UcfXNfYRBnJF1htTVkHBLx gW0eoklcBYIjAnEiagaxSB WbsGgdebCtLx9orYfcOVC8 GYoyQ9ctgU7bPyL5AHouD2 tzuI8dPBn4WSvdQZGmhES0 arC3GDZfhMYvQ4LrwK5eUW LuMG7qouz6t2uaSAR5QObc NRHjGuL1byT3KLDkbIRsLM FtvCszLSsbj322JZQ3UnVv DZTyb7NcK0ZhmEmvG01pzT uvK47mGTUqgKfsvP0btZwm cP4gShEbZkXrVQijjEalHV 6eBOFvB0vlyDOjIEDsEJRf B8zzEvVbuN5mwZucEXtfis BnUGDyDuq4DYMbxDAtFXNv Ljz4KNEmILWhU81gvuboGP Y5zV7vd6ehh4MxESltOVL0 OPRaa14hBQzmjhW1UCtcWx 82JQovJPS2OBigNMQ8rZ== COMMENT (test code = r1chpHNaEEDvlCG1YxFrLW 3359) Rfm6qgp2TvrDLynUAiMHks fPRxbwNmvb26hFU3pF52CQ 3mLNFtKlX5JYFjbvH8Hrf1 HAVfVMAyrKZoJ475s7wno7 eifnLbzHM2fKanIHYacgox JhZ2OZqeLCWbfxbeJXg9PW anNSLdbEQ0IRMmbOJuE6Xe HWTzBB4hsfz3NCD6VDijVG MyHzE5VEMykPItSKSncYpl DEiqh970SYH1FbMrQGNuuw XcjFnamC9gXbWpWSMCbGPr d4XsO6glHR1uzOPbC96wlB 0pPBWem9DebiTcM2IvhiQs uHMki9EqGGnlLNygR3AogO NeOT3zYMHxeo5cwLJijT6i xRXlfAR5hC9lNbRZibB1jL VmQ1QeiCAavQ7tdnUfBXDt mypxmHesVN3lYWZ5sGbvJC riK9KraZRoy3YdFTZxuVds bGlhbCBjZWxscyBpcyBpZG SqxMjrwJNwOQOkAZXdc8Qx iI0wJUMcy1q0sQHifJaeCq 3uENUilR18UXANC0RmQUss IjUeOSJvPM2bPUvql9QlZ1 HliLMcPXDdGW3amGMxIPEy jGc6AEqjIM05bRLcRQQpe1 6sqKzxSHW3hL6rpLjzhdil BxN7GARqpaLpYRHvd5Qed1 4lRXDsj6C5JTboKwVBuNVu ZWZvcmUsIHRoZXNlIGZpbm RpbmdzIGFyZSBpbnRlcnBy ZXRlZCBhcyBhdHlwaWNhbC NhXRwkwwhza8YwbCvwpP07 rtZev0RxvWSozPhdYW6yyC 0jGGSjnvzaIKAcQn9aA3Uy ZEQCJMWnc27rbQZgRCylwB uohOsir6KhQwlpZPahZ4Ke XHBhcn0= CPT Code(s) (test code h2obxACbMUBjnDV6FmGqBW = 3357) Cwy7hob9QdeSDmhZDbIEmc bYPzjrRxiq90fXV4iC35ME 6yEVIeGqM1BZXhoaN0Iai6 WAXjUZUvsTKyY853n5ukx8 hkxxAnsYW4qPfzZHUfonvv WtR7FZlrHHJwbvlpYFl0FS pvUJDmlCF0QHPdtHNsL7Ud KJUlYE3qwdu2JQQ1OHecLV YgTdQ8PUJfoLOvTHIhrOur GOxdt949PRY6BnYoTQWjpz XerJyyyZ0zGwXtWCL3CGPx FYyuIJpmIYPmRPr7VrZfVV Q0KUY6BZzcHOFmar7= CLINICAL DATA (test r3fytRXqRRUivSD1RgXyWY code = 3355) Txh7cdt8EgnDUxfLIhYNgq zDIldkPzwt38jAB9vS81UO 0cNFAmQaM0BKWtmcH9Nxj7 KOFmCZWikDGwI458m6ayx0 nslaEjvML7GXXwERViC5Fl MV8wAUKckTIfL95ldJSrYN B9YFFyLEBeoARuHFKaPZY7 WGZvtCPeA4obAOZcNG1qnk dqKXubHJqsVMLhqHH1QXSj wUNbN1JeVUSaYAwkCHRwyb t3BvFgIi3fmILbyKokPXlm YXJkXHBsYWluXGZzMjBcY2 EtNKe3NUsuwj8rvhZfjDFa ZVx+p6m1dKSCTHpfs9IuHG 5IRnJFRiAoRUYgNDAtNDQl UTaeV7MYLBAiVQBcPbtncC J2YVP9SYKvWzImwqRuzGNp IGNhbmNlciwgXGNmMCBtYW epR02ykaSflXnhdDCdiIHz RnI2g7ogtwUoSBCcba6rcU SxzTkkp5cjBnObXCHxrFKu uV9ihAExLRwslGVdCDrlmg AyTCBOQyksXGNmMVx+cmVj EP59FMXpcAk6YXAmfwPjM4 T9JOWfbeGaiCYefsnxEQBt ohPkZYsbtXUxVE0nNSVtSd VzDcAoNFTtUyjtSwYmGC4l E6WoVOVfXNOdfsNaUIBfZF EgdHJhbnNmZXIgZnJvbSBC klX2j8Yxc8W9UMSkveUwdQ Z1sXGxDSB1IPv2ALJcg47m i2NaICNmn90uYE8ySKVdFE GYRRWxVA5iwAAnvZ== SPECIMEN SOURCE (test q6qaoIPqFFCefHP2JuZwHK code = 3377) Nbr7qxz8GukTGhyEMzKYmz dANyfkCilq65kMR0lB54DI 9pTMJjVlX1SODozuJ3Ary2 NBLnKDFdvLXdW852w7dqf2 eflvXgwEO1kYgxYDUafyzl VsX5KBoqWDOahiguYWl1UW pbIQNpgKY4HHOptEMnM7Qs DKNnTR8xcwk8WEC3WMnkZT UgPjZ0QKUraRCgHWLfmZll HIhea272HYV8FjWjKHJxmh AviTkjvK2zViWoVEFSATBT IFBMRVVSQUwgRkxVSURccG FyfQ== GROSS DESCRIPTION (test y7yinMMpSEQqpOSBPSBhI5 code = [id number]) orhyAtTUWdvEUyF1Yoiacj JRyuGO5vEU5cjOhbpONivS FuBS9FVCKwRmUhKDEveQHf avUaIfMkRSOesAXhtYA3GS MmMR7jwajsGMudHIefCBWr tnN1RISirHOfS3NxQECyZE 1icxxhVVF6LNmkqK7rvwFM MgxzKh1clAVccFcoStDiIe NoYXJzZXQwXGZuaWwgQXJp CPd4oI4TZekiZEK9UJODOy cxBKIlEW8Hk4yoROYyrFVn NDJ5KIzqjWLoKCYxIQEdGL t5VGAbVNwtiZHbEQ8xgJbj MelntWlst7FnrKVpRVufIX MgIOIaKNisHHAvFD0AXwDp XGLrEJQiNLroFSc3UWw1DO 9WUyAiICAzMTAxNzIwNiIg KVf9BDvjZP9ZGEPmBQy2IX moQlJ2HWI0LuRxGXCkWcKf XGYgQXJpYWwgXFxmbCBcXG 7jmFqytWAvwlJVArFOiHS1 qfNrCDNYKZO6QfnoXBJhWQ laKISgL43ol3ATq4WiID2L BRj6ufVefpkwpA5hHMZgzb OgPOmffTGsH0pvYvTdXSJE MGKtjRCcUKM1KZYqbKpuMT FtYmVyIGZsdWlkOyBwcmVw QNYuPUK7QNP5xK5hkXmgpl TwhzDkP2GbrAIjlS6ikujO OgpcNFBlh7SlnNpwNUSlhW rcJwnhU2nlz3UthWIrGFDd mZWnsovezAKhCBDsKhx8BT ZmrxJspK7wkYdrHOM0vDIy bgAaIWPhc93xDDMvoSxaXW SjPWMnrWW2STZrFwf6SRIk aM2uPx4ubXLrqN8kHFFiLZ O5THQlzY3za46xYBYiZaAl MjAyMiANClxwbGFpblxlcG wqCePgfOBvBuWlwVbvoV60 ZWUjkLXnXML2TG0dZTNchi esXNOmCOLwEKB1TJlyiX79 yQVeBKGeHEGduEObwP5SRA UdCNF8HSeelL13qXQrFV0Q YCEdPIX6TXBaePBzPLW1XS 0srC0TdH== MICROSCOPIC DESCRIPTION t6nyqSWwPTEanIM3SdAlAX (test code = 3371) Plb5ufw0YpnGTydELcZXzj cCJustBaqv47tHV9oC99CY 7kEVBhDyQ1HJYlnfB4Vwv3 ZOMoAQWtyHAlP821y8ylj9 ptgmGgbFJ7lMfwHASnudee AyT1JXmpAYBsrhwrEOj6ET daDLSccQY7AIYkfBQeB6Wa TDTyVP5flwf4GIB0HMetGF WrJmD7QLZfxKSsSPPmiMhy AJxmz648ARB4JrAdNKHjzg VfwNfpvK5tMkQnJWYUTZIs w4GaDFQbMJiaUBW3 STATEMENT OF ADEQUACY Satisfactory (test code = 2757) SPECIAL STUDIES (test a2fpnDEtOWLaf9drRQCocA code = 3376) FuZzEwMzNcZnRuYmpcdWMx UQnwiyJnKUnbz9OvH4MlFm AwMFxhbnNpXGRlZmxhbmcx ZBYcWWZ5teEpEJTvYGbhZZ VyRQfbGk0hsJKfvXpxTySt OVJwz5queuXBpqqxrAd2h0 fgWJSfKdI5wMByCAdmF9iy hdYqwSHfA0KduWJgiLq1k8 nqWaAvMoN9pVWjFZqlS6zv lsPwbVOyJVHwKHr1zW59EX ZpqY0ixQYlPGcocaIiBjX8 HKolSDDdYbX4HRDhdOXjBO BaY3ykVGZhPOtxEVCeBZin mFWgEBI2pGlob0Q3qDIxbE VlzEsaZqIgXwGhNuMZa3Lg IPm5eZwzH4LmHCFxXhH3uB QgUGFyYWdyYXBoIEZvbnQ7 gApkzzQhe23zeCZtVGLqKJ MnJdEncUanOXDiCMIOt5Vl bCelMKV5tBa9hDrbFhpiHH T8Mkz8KQ6tzz35uhs2zKea PDSvnjxzSlX4VJepWZIgrh ipHCm0RVnsUDByfFA4ICNq eVIiM9ZrFYWkHY8vbsw3BG F5HMvdJZGfTgB0VAAigXAz JHCiqForPHzhn697HHJ7Ml ZnHH8wQ5Buz8C9rH0quWTz XFDdoXAoQyHlQGUqpp8eqI IzRAhfg4NgDUC4lbP5oJKq kEMjMXDpKH13Enese3HnDw omf6PrX39goKU8LWtju4fk LT2oPpQ9clRuSSkfd6dtyU 9aWmG5CDmxTK2aLY9qMKQa iL3vxshySEYlIvFdjzyoJM RxvGtivaAaNt8ynBboZAG8 HMlvQ0lliK3nWhG1OWdaE6 lipJ1dAZc3ZTyxvKV4BMFs rL6qCQ7jfffgh5atDOukWG fyOLRxbvH5puG2ZOEzoXKa Z2KerR8oIQDkBZ6utqntn7 orKTJ9CUyeZSHaJYM0XySe KMCzh9Lexpm2ZpKku5HedU KqCEzfP69fi726FCVbseYu B2ozwSAemvyucAQkfsosHG xvknP4VWBiMOEcQQvuZFFv XGZzMjJcbGFuZzEwMzNcaG ljaFxmMVxkYmNoXGYxXGxv W9lvNiYuF5DiOJFtRzUhGX jqACvbnHHqtGKtzDX1mK7b PT1aLBYujEDsS8HqGJCkse ZluBUdWXZ6qOEjfSNgDX3s NXeosEJbl1pdc7KxU7xzrW oxyZQ2WA1aFKSfTEMwEKzb c3UhxC7xXzdlvNXtqyclNG xmczIyXGxhbmcxMDMzXGhp H1afVxGrIPLirZxgQKwgh2 NoXGYxXGNmMlxmczIyXGx0 cmNoXHBhclxwYXJccGxhaW 2cOwFlQiDbDrsrVJ3gIMWg X1eapCJjOJEsVPUuQ5phTn TasE6lyMuoLIioIsCnXzDd JtJFv153vo6oFYOddOUxpt WNkJLopG9mCPxiDVkhPLpc mMYuLMkwh2ndDUCcl6r6gB EsPKZkweDue7zwFQsmbqPc BYIibQJfqTWsFGOmi31uFD ticVdvrUfcYFHoc8WcxWfn g7DoMnTfWSuzr8KmE28fgR JvbCBzbGlkZXMgcnVuIGFs s95hh0jeZIHhTvE4dCLfuF I1dNQfzZBkx4DjbKlhKGRd d5itJUBdes6ejhejsNDyn2 JdyF9qynnvFAtkrNKcftXb KHByu6m1jWUgMZJnXZJsKL ggsEw0CBPkm580iu5hjeG2 kKLpKUX2FUmfQDDfSQHqdf UgZXZhbHVhdGVkXHBsYWlu XGYxXGZzMjJcbGFuZzEwMz NcaGljaFxmMVxkYmNoXGYx FMtjT3ccDaJyD5VuXUEeJc MiaYSnN8ehfOPtIOWoJRkz XGYxXGZzMjJcbGFuZzEwMz NcaGljaFxmMVxkYmNoXGYx DKvnB0qwAyBjN3YxHAPwFd IgIFxwbGFpblxmMVxmczIy ECcwzscsPGAuQAroV6rgOy FtJKSmwPrjHIcdb7KpBMUq ENVrSqaoxeZjBOw2gkDhGT BhclxwbGFpblxmMVxmczIy NPuweuneZFWbIJroY5acUr SyGRGrcPbyKKqwq6OzDXOt XGNmMlxmczIyIEltbXVub2 oob1OhC4odmZphnGL9DAUg I5pvuCNhnIC5IXC7vV1sRY bhlqBsVDZne5XuQLQbREKy VwI8yT3rUZN0OsLFrWafUY BsYWluXGYxXGZzMjJcbGFu ZzEwMzNcaGljaFxmMVxkYm PsLACaHTojV6qzHkQwF9Sn XZTqBcWvrGhvPVhmWXq0Tr xwbGFpblxmMVxmczIyXGxh lpftOXHpOMxgK3sqUlQoHQ KthGujTXdpo8BiIOHzWSUg MlxmczIyIHMgTWVkaWNhbC VFLX55IRIcBHNjhLqssC3n dMKHEGYwoiW7e8P5TYvpZS BbBZg4BWltffTtOBDllH3e ECZeOH5kQKv7ikEiZXUdz8 HiIL3uZGIwuRToFLK9QJGl x3NoD5Apd9PdAHXfLNTrcc 3alaFdMmZOpEGaIRVvlo03 THPbTM3sO0ieXUSoOKKcvf HzuQAjs9IzLPJoyOI9iFVx QH3SOvSOv05iQESoDLGTsg PwHYHwsAlswGP4qiD6pG1s LiBUaGUgRkRBIGhhcyBkZX Fnak1vdwGvBYXbYJFoq8Zu eJGffPOiokGkQ4Hlq0TtAL Iyrm77PVrsjTBjly20QR2b E6Heu1TifM3rDSsgTAKhi4 NsbONwrXNjYZBye1AhB9ke rnxfTDaucWHpiN2pVJTjOM h3VNIin3OdESDii4PcDvZa woAqREPyLIZoVUGwaA03CJ A7sFzaiJxgagByNS6bAOYy zgOuYLZbXBXkbD9uTGnxoj CtGMKyagZ7m6V2MHlpYCWu evSaYfmwQUH5tnFnhoF1hR RfP3vijuqtYOenBCFom8Iw mZ6qmJBRzXWrd5CghJPhjU XPnRZcHB8ihvRaOS0gXUN1 ODggKENMSUEtODgpIGFzIH Z3MZukUineTWC6zpQbISJf h4BjTGrvX5flJ03xoIzpaZ u4cGPztWfmzRTvlVGdBZVm zkB0r7L3GEXew9XxzofcOJ BsYWluXGYyXGZzMjJcbGFu ZzEwMzNcaGljaFxmMlxkYm IwGSOeKXfkA9mvEhJeZeQd KhgqGZB9hL== Gross assessment was [facility] performed at ([facility], = 2777) Department of Pathology, [address] [place] [address], Technical component was [facility] performed at ([facility], = 3998) Department of Pathology, [address] [place] [address], Professional component [facility] was performed at ([facility], code = 2779) Department of Pathology, [address] [place] [address], [facility]03 Test Item Value Reference Range Interpretation Comments Case Report (test code Medical Cytology = 104) Report Case: [id number] Authorizing Provider: Minal Joy MD Collected: 10/08/2022 02:53 PM Ordering Location: [address] Received: 10/10/2022 09:36 AM Service Pathologist: Jimena Anton MD Specimen: Pleural, Left DIAGNOSIS (test code = [id number] 3220) FuZzEwMzNcZnRuYmpcdWMx IHtccnRmMVxlcGljOTYwMl imbsJpBKSmlXHvW6Ctztfd QIcjJN8lRE6wzMktrIHgnS LqELHyIaMuh9ebo845gTZv c8caCUEAdrhumZj5kKogU4 6ab6G5XgnyI01uuEOiGJM9 FAYcXCMxvXTkEYGjCLV2NA NxgPDjN3iwWXHsQZ5ttvzu TYxlKPtdYLAreTS9LIDmyK LsO3PeBVCuEOgfCGAgygo4 ZpRgGb5lbZWgqZfrMCveNJ JkXHBsYWluXGZzMjAgTEVG VCBQTEVVUkFMIEZMVUlEIC lFGDAQI1URJtOxXL0VJPRD THeqIivIK1dkAptreF2xTK BbAB6kSSMBLcWwJINUMKmW YUbkR4MURBCwJXVES2XQC9 tRWRArQp0QZG0CVOgJYjIX Q8tnSQVOHRBQK09HKZ9KCB acGNP3c2dcfFJmGDWrfWFq ODAwMFxhbnNpXGRlZmxhbm cyOOHyBZE6tdMbYHTzXEur DRHdCUvsVe7ouOZybYrrVc AhPWAfy2oipcUXjwbheXs7 y5aqVWHwOjR4sMSbMMqcR7 ysbkBjyJNcXDCfPMc9bU68 PJUtmY3biCBkMYneqjQcQt Q2UNxoVNZyBbX1SCFeaVNk YPYkK8ymUANbWUprQMPdDX ttrFTxRMX3tFjks9Z4hZAr aGVldHtcZjBcZnMyMiBOb3 InCBm7sAquM8EsTYZbGkM8 bHQgUGFyYWdyYXBoIEZvbn Y9iU86DFrxnjJ2qHGbu6Kx v45dl885eY5ppXEbDWJ5XE XnZKWhjAMbDIWrBNE2GJRw dEOtB0raOSBsXR0hprwlNE bjIQwnIWNmyMI1PPAovQIx E2WkDLZdIKicVZUwern5Vb PuMd5myXUnqUklYMkyc6ge i8udwRTqOat6UPPeFoYjMt kjMNzgh8Xtd1ckNUSszi0y QHN9mZRnxVdrr8C5hPOvAD GeeCZbNHMaYV7muPJvVVAr iU1ffbncXYZnAnAqreizJL GekTzudqSfQm5afDkhVWH0 XAmqI1pgvN3wOkG4LTunR1 lllT7kHCb6PWbfHKZuyMT5 ttR4UJBruXQhL4CqyZ6iZX GlBN0jtvj9p3syDDN3NRsq XRJtWrQ0rcE3KPBsdKInJJ NrwKubIZdlk125ERB8MmHo TPNys2ChV4BfzQzeS14qpC jyQ66cOCDfqCdjnO6wmLte vE9hEyUbZgHvFOcfvRltIE 2dMTKfR1apvVStVVRlFCKq P9ebAxMecZ3vbOkaMOohpo AzEVQoMeb9BWWyeNGcNUXf Igb2RKNmQNAlR40dzxclHW M5bC9et9uyr5OrQPbaZAA5 CUFfq81rEWahjtZ9LYsdSp 50SKsuMAR2LRpdVAH2mL== COMMENT (test code = d0hmrYSqCKLufLQ2GiXxCM 1683) Tat1ugt2VhhPIbpWZsFXsz nHDtszFoma80eBM9rW53OD 3nMGHqTfH4VVAkcwT4Ien6 IEWsUOJovSZeM659a5gpe9 coypGlaYG1qAgcSNVhpcdb LlC7XNzqAHSapmktMAn1LQ ukTILcvFK9ADDnmHAhL4Hf TFIjTK6keqk8CJZ8YJmwKO FlEqL6QIPtcZVrKDNkfAmv QLvfb977LES4IcRhZQNqas WksYfscA5cPnAzEOOCdKHn s2HqE1skYE3xoXCoR66koH 3yLMZdi7ItbzWtX5JvnuZl kJRqq7PtWXqyWWzqM2SosG HuGW7gIWPhuo0crTVmrZ3v lSLxyCY0bU5rSpUYvrU0pO TeL4YeeUCfrC1vwnFgCPVr fyguyFmmYW6pJQM7yPtwFD ogL4PufSDts8YtNBZspAcp bGlhbCBjZWxscyBpcyBpZG QdqPbtbLZeENUkORCqo1Nz fT3wWLYrg1d1kQDixQuwCy 3nVKKwmS56ZJEAK2TaAYcu IcXfIANqOZ2gGMvgj7VcM2 WlvQXbJWQnRM9znUJnSEVq kKi2GKioAP17gEFeHPZfe3 7xkMdtWSB6eC7ycAcfprrw DhT5BCUxddEiMNOhs2Cvy7 8yJYVxa4H3HIlrTaIDmIKz ZWZvcmUsIHRoZXNlIGZpbm RpbmdzIGFyZSBpbnRlcnBy ZXRlZCBhcyBhdHlwaWNhbC XiFVyrdfigo3IqvBxvpD18 vbVmm3SltMBdaMgrDO0vlQ 2nVPAqnywiMIQhDn4rW4Sq MGMEOOYri83cuOFcTEzikI uwiQdsc7AyNkgqOHuyY2Sj XHBhcn0= CPT Code(s) (test code e8uvxGKpDAUcgXQ5EqXlBT = 3357) Ouu8lvz0FolYMzzEQsXHdn kZNlauBwqm68jGX4mI43PE 2mBTYoXbN7KICtgeA0Fih3 HXNiRSAynPDwY753q2llr2 xxleMpwZE9vGumTJSocpdf YhZ2JGvdWVDszusaGEn3ZE qsGZXaoES4BVNrqRFgX7Rj NLShSC4azum1EAA7MHoqLS NbRbZ0RHUmqCAhFPBtcTtn HBdvl889CKY9UeOkMMYlpl PenVwhhM9jYwFzDXQ7MVWe BXlaYZkrHALyIPp5GuNnCF A5QMF7RBbeQCJfuj5= CLINICAL DATA (test t2iliFGoYHYqlOB5QvJoWQ code = 3355) Uai5yed0EjyUNwnNJeZRdb dEAujbFztk38aDM6vK56SP 7mIQBiYrA7DZMvyhM4Kps7 LFWhVVYvyLFeR370v5lni8 xotvUxxZA2BLBuMGMaH6Dp KL9sSLBktLRgC13psLFcSH K1PCMrJSTvlSZdCTVjYKM8 HIKjdMGxQ1pvRSPiPU2yzr woKQztSGtfECKhlDJ7USMf yZWsD1IfNBXoADzhLQXanz g7CbZkBp7laGRbqPjiPPfb YXJkXHBsYWluXGZzMjBcY2 PtRUi7TGrlui2runFfkDZe ZVx+z4d7vWSFBTsvf2ZpSM 5IRnJFRiAoRUYgNDAtNDQl HQafM1EMFJHoXDZkGldqkI I9BFP7FZLpBkGkvwEgnCFt IGNhbmNlciwgXGNmMCBtYW zlG03xumAbdGabxZUzeKCt AwM8p7uupcBzNRTcgw6quZ XbkRkqy1inNbDaMFQazAIn lL9cgVBbPElmfWVlXHektl AyTCBOQyksXGNmMVx+cmVj GA87CIBcpWy1RZZhtsCcG2 B3WNHxziTxuBLllbkvUKGd wxDfPTahxMZlVG7mPHReKc UoCrGzMMNmCorbCmJxOW6x P2WeJGElZUIfqlKlKKYpSQ EgdHJhbnNmZXIgZnJvbSBC xcH9u3Jox8E8TKNfaoHpdM V4bSXaNGX1OWd8THHxx76m i2MgZFDpq71wEO2mMCIxCZ PNSZTcIW7ulQPxcG== SPECIMEN SOURCE (test w6vknOZtSJQuqBT0VfJbYW code = 3377) Hyg5umr0ClfHFnuUGrBGoa oSYktlCqej75tGE4hE40FV 2sYLDeHeU9AYYqpfQ2Csz2 IOCoTSFwuFQyL237j5pmq2 zqrnJbjET4iVuoIUVlxjcg PaH1RWdsPLDlvwmlNUl8OW iwOFJbaQO5NQJpbQIrP8Cs RTIsCL0nnwt1XYJ5DPrrEM OkDsG8NLCofNKrAQNbfGov HJjfd672UVJ5MvYeOYPmwq JkwHxywS1pLyFzOWCBLHYZ IFBMRVVSQUwgRkxVSURccG FyfQ== GROSS DESCRIPTION (test w9gegUQtYAVamQOGMJQfS1 code = [id number]) hpjjPcUYArgTWeG7Wznmny NNeaXX8kQN5hdOuzpRNtbQ ToMD6UVTTeDhTcAKReqYPq xtImAbInBKHvgDHudFR9AS CrVL4yrchvVFdoKFvuFSZk ihG8GODvrGGmT9TmTUWoYU 7iykoeLAK2LIchdM1kpnAA DzhcWs0evSGtjYafPrKdVu NoYXJzZXQwXGZuaWwgQXJp HZa5wU7APmjzETP7JSAPUn qeHJSkKM6Ds8pfGKNivJDf RGT1DAhzqGZbYVSjGROzDY z4LOHnABulpIRqMZ1maNlq QqfccHddq1IodXKqEHhsDG RhBWYxMXrnABMmIY1BGdJw OABsVBKxDCvhOCj2KCw4ZD 9WUyAiICAzMTAxNzIwNiIg XUz7OArkQR1YAWLoTPt2AX hjDiQ7BOB5UgIsYQYnGlYm XGYgQXJpYWwgXFxmbCBcXG 4nwNicyXVrwyVTRkRVyRO2 qiNrMZRBRZI9LmjwAEQeTP hyYYMuR70hk7LEc2HuYB8H BYv8jnThflpnfT4oKFQjga IcEIjcjZIgT5zeWvYrJENT COEltSBrZVS5EVUpyMoyVL FtYmVyIGZsdWlkOyBwcmVw JCElSQG7XTE3aC7sqMojqv IymrNvJ9RnlOMklB7oxnbL AxkvDNJxc0FeoSgwNCGruF giQuhwQ3vlx2SkqGOxYUTj yJMltrexrXKzZKPcArt3PU CekcRexJ1ysObiQQU8vRMj nlNeREYeu02oRUQzeQcdQN JzERNaoVG5OCPrCgg7JGCj eD8dMr4uhKPrmQ8nOPGaJL Y0VURtmR7uo37oUTYeMvMc MjAyMiANClxwbGFpblxlcG tqEkEtfZXoCyFimWkdtM66 LNXorLZnAFY2MO9zYQEuic zzRBUjXLCyNWN8QAvwzE89 aNIaNXKiOPHlrYDxsA7ZGD UrDAW3TXwmbB97vHBxFF0K UNSvARR5HDPmlHOuKAI4PW 9kpB9AqE== MICROSCOPIC DESCRIPTION k9ymxXJkRQDziAE4ScQcMR (test code = 3371) Ygo9nkt0TjjDYmrSSqDAet uXRaqmWhcx62lKG9iP75LQ 5lLFXuZoS0WLOaokK0Pjw4 YGFeCSWrpAIyG076l2szz7 bpjvNfqXN6aCmxBTRmdauq FfW9JLgnZCEijtfnSNu4NL tqQBYujWU3SKBxcBQtX8Bi RGIzRC1zjge2PCC6LQlwAE UmTlS2FQZdbQTcJEOijMih GUlwh623XDJ7RxSbPCPirj NdtZxpwH0wQlDzXCFZCQDj z7GxVZTqSAcjSGD6 STATEMENT OF ADEQUACY Satisfactory (test code = 2757) SPECIAL STUDIES (test i9wluAJxKEBoh4yyZTUsdK code = 3376) FuZzEwMzNcZnRuYmpcdWMx UUcrpuUoGTxyn3FeW9RqSj AwMFxhbnNpXGRlZmxhbmcx LLAqDXN3noMaKAIqEDzhFZ WfZEexMq6jjHYtvDyxHiBn XTVmg9xaalAAdljglLu5h3 hpYBZnSoY9iAVcOLorB5we fcYygFUjH9XclLEwdRq6c5 byObNeGyT0rIJaVVrnM3ou hoFkqTEoSYRuBWv2eH93YN CjbG8iuXWpYGofcuLeMmJ2 UGwbLUXuVnP6OGPnwKHqSI XhD7dqMXNzIQcwJPQgEFha pTShATC0tUphj9G6sBSzmG XbmPhoCeAzVzXjFwIRf4Si UAv9mXpjG4EnWUSwUpW6bF QgUGFyYWdyYXBoIEZvbnQ7 tEblueNxz26bfGPiECMbZH ScQuAtmTwyYKScVCPPr9Pm dXepPKH6rYi4xTibAgqwPI R0Woi4UK3uuu84scb3rBrw ZELrrlrcDbT6CXgmEGDvsn luYVw8JRmjLTUayOP2NMNl hEVsY1VeXHSrGF5hzds6BC S6HFhkHNWdLjE4UUPxsRMk QXYufInyTLtwf360PNB2If YlMR0rJ6Qcd1R7jG7rmHHk YFAhhZKgCwIoBFJvww6fsK LeJEsbr1SmTOK8wrJ2eJPs aRFyKEXuWT41Svquj4JxXx dts6GdX82xcXJ4XNlax2gh XH3pVkT4buBzWFmcg8tfwY 6xBpI1HDpsJO8qWU7qPXYr qW4qecbnPLGtStZvduvgPG ZtcMuthmCyEw2grFruADP4 AQsfG7rwxJ4uRkT7AAosX2 ebxU8iLNa9QXrwyWH4LNUt bT1cXW9awixxs7nuRNvjEE uhVFEuutF4oxR7RDOvhPTg E8AbdX1jAYMpFI0ugards9 eqSFN2EHxwOVSwPVO3OqBl ZVDjj7Zdmuj0MkFgr4NqkU GmLTlsQ61wy066UEUalcUs D1hfwFIcgyijzHNntyenVA efuyK0ARQaMFHgTVvrKMHq XGZzMjJcbGFuZzEwMzNcaG ljaFxmMVxkYmNoXGYxXGxv L1gkCaXcR9HpAAVzZxCeIM ibDQordUCtbPWtlWI9cO6t RI4uOIWcjSHoG1WsFVJstc CyuDXzAOD1fWGjtTOaVL3p WXywdQRhb2ehy7RuV1hjvH uzvBP1NB7nRNEqFLZxUXtp t8ZlwS9jEndzvPNdavnvAS xmczIyXGxhbmcxMDMzXGhp S8uaUgCeUSFpkWvvEMija4 NoXGYxXGNmMlxmczIyXGx0 cmNoXHBhclxwYXJccGxhaW 4uAdHlVhSxVmglFE9bEFWl Z3mesGQpCMInYNKyB5pgBj BygI8maSqlUSrfVnMfGsPr OwXWz281ys4oZWAvhLFvzg GCiWDtbZ2wIIllPUhtBRxz tPGyOKazm8ksQYIvx6y8lU IeZDRqmcTzz9xuTJgsyvSy SJYnhCLznVIgZNFvl07dWG uodHufbObhJYSqr1FkuZex q7UiCnGzICtta1KcO21ndL JvbCBzbGlkZXMgcnVuIGFs q23pz2zyAKOsDdR2jYQjsP W5jFYcdDQrd0RxmFslIPLn i2coELJfzl0nvnhwsMDvn3 MaeP1iwaofTFozxKZiwqYu VBYpz7c4aNAjRTVcGYNiPW wddIg6THEcm904ql3klfS7 oQEjXAV3RZmtZWQpUHCtwu UgZXZhbHVhdGVkXHBsYWlu XGYxXGZzMjJcbGFuZzEwMz NcaGljaFxmMVxkYmNoXGYx UQawC6fpAkGjG0KbBRXpVu OgpHUqR3bbhXPbPACcAGmt XGYxXGZzMjJcbGFuZzEwMz NcaGljaFxmMVxkYmNoXGYx PAoqF8fxUzPvJ0FrTETpVa IgIFxwbGFpblxmMVxmczIy YXgqmrsfEWEhOPrgW9omYh AlUMKeyTnfFRzbk3QsABCv DMNbKbgzboBkKYk7twBfRU BhclxwbGFpblxmMVxmczIy QBcyypleGJAyMXudA2pxQm TpLUWvbRlcBGbmk7KuRWZl XGNmMlxmczIyIEltbXVub2 cdq6SfD2whbXfehAH1TVEx N1cttCVlkWQ9LTZ3wK9vFI nagqQoAXGju9GlQCFlDPGj GiG1lO5cWZP3SdMOlXvhWV BsYWluXGYxXGZzMjJcbGFu ZzEwMzNcaGljaFxmMVxkYm FpPICtRZaeZ5jfKgWiS6Wq XTZjXqXoxFdjPIokIVf7Oz xwbGFpblxmMVxmczIyXGxh wqvmIAYoZAauA0krOdYoDS VfdPvuDCwvx0IiOMJoBFRz MlxmczIyIHMgTWVkaWNhbC ECMG22CFJxVKOxaRzkmA2c nIVSCPHathH5q5U2VCpgET WiEVv8DNfpjfQhBFWszN9e XAQaVH5tHIv9jeEzDOCgz0 JeMZ0mNDSaeKDcKVK9VSBo e3VdF3Wuj7NgYMWfSXJmkl 8behYrXhSBuEXpOIIfvm02 OSXoJF7vM7oxCKDtIMLkek JzrBOyl0SdMPKbcSP0hTCh XU2YBzHXn83mQWYnUGNWpn NaLQByyAwelGY5mmP9aS6i LiBUaGUgRkRBIGhhcyBkZX Ptwx5haiQyMKLkDCCrw2Jn vZQxaESqbiSnA1Kjf6KiOU Lsvh28BZqkgEZrnj12NP2l Q7Xmq6UggV6mHPjnRSWlz3 DpbIPwbWMtKIZhf1IgS3az edneSKxrqIPqxU0wBLAcKZ w1MWIxm0VqJSVzz6UzMeHd iiPkJSNsWGOrBUZhbT05KH N5xJbqkNjcenApCU1fGEUj bsPvSCUhHMTqkR3zDGixtl HwGVHnumX7n2B5ILrjKPQv bsZwTzxrGXB8wmSvqnP4xD XiX0cbzqsmHAveIMKcq4Oj lG4npQHHaVGgf1TpjOJhvH RByUFcFW4jtqBzBN8nBDS5 ODggKENMSUEtODgpIGFzIH E5WJptYzzhIML7ryDkWVAt f2GtSFqsP8atT52ifCfytB i0yKFdeHiyrTUqxHKzKTZa ssA6f4Z8RYHax1RwuodePR BsYWluXGYyXGZzMjJcbGFu ZzEwMzNcaGljaFxmMlxkYm VlMEIrCNuzB1xuItHbDdRq PmeyTAI8aU== Gross assessment was [facility] performed at ([facility], = 2777) Department of Pathology, [address] [place] [address], Technical component was [facility] performed at ([facility], = 2778) Department of Pathology, [address] [place] [address], Professional component [facility] was performed at ([facility], code = 2779) Department of Pathology, [address] [place] [address], [facility]38[facility]03 Test Item Value Reference Range Interpretation Comments Case Report (test code Medical Cytology = 104) Report Case: [id number] Authorizing Provider: Minal Joy MD Collected: 10/08/2022 02:53 PM Ordering Location: [address] Received: 10/10/2022 09:36 AM Service Pathologist: Jimena Anton MD Specimen: Pleural, Left DIAGNOSIS (test code = [id number] 3220) FuZzEwMzNcZnRuYmpcdWMx IHtccnRmMVxlcGljOTYwMl tsqqPdIVUhhLXxK3Acxpkt NQvjIE8jCV8swVwecHWrlQ SjFFNrXzMoq3oxl298zBNp j2xwUVJKdaxvsYs9vFnoE0 2lm0S5XxgoH72viOBcCNX0 QZStLSEeqBUeJAGvVNH1MH GrsQPeA1qtQOJuGT7bnzsf UNahXWapDNAltNQ2KDOtiZ BuE1EjJETpKEcaPWUpaos9 RfHgHx6gbOJdzQyoUUfdLP JkXHBsYWluXGZzMjAgTEVG VCBQTEVVUkFMIEZMVUlEIC iQTHRTP0FUDkWeHX3FSUZW YOopGtaXW1msPfcixW2rZK IqUH7aTYFSKeRtTLWXBDeK HVhqH3CXMHImYGYCH7EKE1 zPSILsPa2KEP7WJMfRFdVF Y3vaBKCPBOBRE97CGY8NGR kxDKZ5w7decBHdXVXreYYi ODAwMFxhbnNpXGRlZmxhbm pzEFYwLIA5kgVyJDZeZAgu TVYdADsnBh4csCMptXjqQf TiPDKqd0okelEUmepskFl5 i9duHOMrOgM4vJQoQVlqY4 cuuiBzzLSjHESsCAp4yF17 OZSutM4zbNTjXNsaouCrEg F5JFwuDUIsQiC4RGGqaJNa PFNrY5rwUEXyEDwdNHWjXQ qbyPFkUPL2jPxnb2T5kGFb aGVldHtcZjBcZnMyMiBOb3 NlJGb8bYrkS9MdIIBiMbR3 bHQgUGFyYWdyYXBoIEZvbn E5iN88SStucvI2nJJek8Jm d88tn236qZ8rnWIyICV4UP ClIFGhlWGdFJYnJYY8WWNr eQIqZ2riSVYhLR7pbbekMZ qvHYesANTghVN2JEKzaCHe M6EiDKRiBQwwEDQnqdt5Vl RqUn5vuAVttVvnBRynq8ak x7avyKTcLll1SIOcBgWzJa esKEzsa8Fim8gjKSRkeu2j AZG0aJCccPrni9Z5xKUxHY HcbNJgMIKuMG6ctMCtAQDg hM0ratnqDBWiFgTlbvspSX IwyQaqluNsUy9eiRedMSH9 GIemG9fljC5tTbS7HKjkM9 pxyV8jYCw5RZhsDNYggLV7 whV6KZVidBYlM4XdbU3bCH GmXI3hjzd5a1bqFZV0UXig NKHqPqW7fmN5PFCczEGwPT ZvsMwnHUmzc152KAL8BvAc WUWbw4BnS6BpdDezD82dzA joD95zJWSdpHpkvH1opVfi zT1lVdUzCkMlIUhcxTpvVV 8zFRGoG9bdhYZnMKNrTCTz R8fsRmJeiU7ceHjdNFheax MaTMLkTrt3JSLhtINdSDMv Dgl3CCIlYAQbA12zjravDF X1jX0gv7xtd8VuXPnkHLX3 OERcz05qLFvfwdS3YDdmZu 70GJqeGSK8HRbcOOY3vT== COMMENT (test code = b1nrlGKrBHMktKH2DuRxZB 4661) Wpl0zym3QlqJQqhVWyYUop tKYkzjJqrw29kSU5mV58NU 3qGEGsEqM4AJDqwhZ7Zby2 VYBaFZRboVUzV564w9spe6 aeplYmyVS0cSxaOBNglfli LyF2EVkyGHNmaxfaMXe3YC xmYHPsqDL0WJGcdTNaO4Yc ZTXhFU2elme0ZKS3LAbpQF MxBdJ5MVKbuNZpRIPxdTyy TJudb527IUL5MhEpDKYjax TuvZeioS0eUiOeTYLHwSEr n7LfW7wuWM4lmYKgW43oyE 4tFVMox5LlkjHxX5FarwTd gXAue9BmLCrfKNklE5KdsO WeWH0cLXYzva0ngNSiwV3q bGDmyOX9oF4tJcMMndY1oH AkQ5YeeAQtiK7iihEhHJTe frdhsNzqNK0zZZU5yXwlAL qfG0CkpHMyv2LrWKWwqZnk bGlhbCBjZWxscyBpcyBpZG HqsLickPPbSUYoJFCsl0Zc tM2lYKRwx1k6sIYkqFbbKt 7nMRGntO10PSWRW3UkFOhs SlAtWCEiRT8qBXvgy4IyQ9 RpeUQcMIRnVI7ceIIcFDRh pLb4ZOseVC58wSWgHBGqc2 3dgNgcEBL6iF8upHklrfde XaF2SCYpzoIzTPClp0Ucp7 1mJDNlq1V8ELqzAaBTfNYx ZWZvcmUsIHRoZXNlIGZpbm RpbmdzIGFyZSBpbnRlcnBy ZXRlZCBhcyBhdHlwaWNhbC MjIKpdhgjij3FzyDvpmM76 olOcv0PvrEMxmAapMF4ghV 3mHDFboknyULSlOj1wF4Ub EMVBUFWwr55imSQwUJvjbR gvbSblm3HbNszkXIlsZ5Kr XHBhcn0= CPT Code(s) (test code f9liwUJlEWItdWW3NnXsYL = 3357) Hzd6tgy1IofCPoiCVsKTuh bVXafdFkty72uQT6gP91LU 9jLZYrUbJ7GHXycuP1Evg6 XBLsVQLvzMMdZ800s9qeu9 qwrgCtzSA0gGxnSNAbdcmh TsY7XSqyFONecvibLKp4WA thHOZhqWH6MIDemQUbE4Mw NKKvSQ6owbx5LBQ1APpqFV KrPlQ1MXHlrBNuZGCzkFjk HHyyf423EOC5LeDjNRQqrg BzmPgfvY0sGvOnHEX6HMLw ZIlfCNisDFTtNIo9FxBzZS U3XZO7LUriQPYbbj2= CLINICAL DATA (test m9azwQDwCBWvcOU1YmDfHE code = 5775) Ejv0iil3XiiOCyeFIeXXff uJMuetRdmt55lJN3yL17GM 4mTLVkTeG0NUGzwcR6Tpj7 XLDrSQGfwFJhB894b8uek1 aoigKogFM7NIKkIOCnO8Lt XU9lLLUtzURyO80zyFZwGG J8RJQpVJFecQLmNWOpXTM5 EHBvfZJwY5dgECMqLO0bor ivUIbkBPmwIIYolRZ7CWSm cOAbP0BgDIRnBFrxTYWykb m5DyTyZw0stMWoyEdkHUqk YXJkXHBsYWluXGZzMjBcY2 LjSDn4ATxyty9vhuLehZMz ZVx+l9n6gKTUSHykj9TbQJ 5IRnJFRiAoRUYgNDAtNDQl XZjiL2RBVQGvIOVoVueloK T3CLN2VJWdXfQlblHraNKw IGNhbmNlciwgXGNmMCBtYW fhR65bzlJrcMzwsAKnhLUd PvR4d4kctoCdZUHeqi9ixQ SiyHrqk9uxHzYyGSLsaWYn eW6tmKTtWOaisNVxDChppv AyTCBOQyksXGNmMVx+cmVj EJ24MFTxiMw9MLIxpuPhL2 W9WLKyrhQmbQUlarfpDMXm etHoKIzbsBIrEH1yLMLdRg EyUbJeWFEiBeqwNuEdET0r O6ZmHFHmDQUaxyGmGCNjZP EgdHJhbnNmZXIgZnJvbSBC xeN7d1Ehq5G8ONQwuaTnjX P6bLNxNUF7MOy5IVEls54b c8DxVLVbg72iYT0cPSDsBB EPMRHdEI4bqSIrkG== SPECIMEN SOURCE (test n5ceiTXlIYKhiPP8LpPsDU code = 3377) Qby4wpr0SzmUChuFDaSPqr nGOvflHalq76eNM6nA58QT 3cOQDvBnE3PGQgnrD5Ceh7 RFGeMFZgiBPyB615z0czj6 hiuzGfcIQ5mEmzZXPyrugm DgX4WFmnKNExmrreYVg2LL dfMOPeeUP2SLWzrVHfZ3Jl EWHlTH3isom4HUR4KGujWC EyArC0OHZmfERiXMDbeGqo HFryj882SPU0GyZiCPXcwn JzxMbmgU7lWpFjORZSYZJX IFBMRVVSQUwgRkxVSURccG FyfQ== GROSS DESCRIPTION (test p3diqFFoYPSspCNKMRGpW0 code = [id number]) gehuNnWNIdnPGoL5Xyxfvl QQebVF9sJP4czDsouTUawK LxFH4OMQUpMlLlHWOhyZPy erFzVcCeUOSwhCUklDY8ZB EgQU1pdknnEDttWAkkSSZo klU8COEjiPGcW5QbOTGmFA 5hkjjrTRW4FWbfzK2dqmWK LymcNr0ckWKorYpgSpTkIs NoYXJzZXQwXGZuaWwgQXJp QXk3oB3UVcshPLM1OEVDUd yyHVHgEZ6Zs2tdLDMgcWPe AQY0QXkaaIZuCAUcWSEzPJ f6SYXuMOxxbZBeZP1tqXwl WlhgfIvdw6KqhUGhKGnkXK HmKYQqCTolLJPwTM2HWgHg BJSrGXUxGBmzHTx7UZo1BC 9WUyAiICAzMTAxNzIwNiIg ZBf3MLkvBB5JSPNiEVg2LL cwXzR9LHL0OcCbQCEuXvFj XGYgQXJpYWwgXFxmbCBcXG 2xqUsmiZMvhxRLVrTZxSK7 wbHgAUWRTDY5IgunRHZhKB xcMGAiX18wu2DZa4GsHQ2B YMz0egTrwczzrS1kPVXubg IkMPqxqSCaI2enRkBePYMN LJUihMSvLEE5DUWfpTrxTE FtYmVyIGZsdWlkOyBwcmVw WQNkJOX8HWX7pL7ctPuxpd LsiwYdW2FovOHjcE4xvndK DfxnNWEhf7QqiCjlXRCjiR pmRiviU5gdi6ShkZQmFJSb uLWwggppbLGcWGAlChd7RE EwweHfdA4xnCwrJOY7tSWh bqHlATCza72uROUmwNstXR JzOTTjeTL1PFXqZug7IEVl tJ7nPg7mwHOfsK5vSFKfBK S2CGNazV6mj60dXXHiFeAc MjAyMiANClxwbGFpblxlcG ukWmLnyECcFkCqxZpmtS06 FTBrnQYxNYL4DF9fYDCcip jtDAFeZIQkJUF6OJamxE36 vJRzATCaQKUsmZVhsD0NPA DeDJF6RYdoyT69xDVzRT0J LFBfAJN0WHBqhGOfFAC1TR 6zsA1KkW== MICROSCOPIC DESCRIPTION y9uweOUqSZIanKS0ReHdXS (test code = 3371) Ygy4mbf8KexROrhJLcDBqa gWUruoZsjl91rGH1wD25MK 4pYSQtCvT1QZVbnnY8Ivv8 SWMvRTXfyZDxA018k4cpy0 kpxoAbgNG8eUxvRYRiwipe VcX4SVehOEZzcpqyIVg6GV zfWHZwvMW5IHMmzFZxD1Dx MDTrBJ6rnni6WUJ3GPrzCQ HcJjN0USTnbTFfSHTipUkh RRugn718ZUA1TwUsSOMnhp QqcPlonE1yDqKfWQDLTYXa e3McGMJiBEzvLBA6 STATEMENT OF ADEQUACY Satisfactory (test code = 2757) SPECIAL STUDIES (test v7nqoXRbURHez9sfVWXjbX code = 3376) FuZzEwMzNcZnRuYmpcdWMx LMmygoLpMCvug7UaA6YkQb AwMFxhbnNpXGRlZmxhbmcx ORKtTAS6uoKgDFMvFNmwIQ InCFzmTo4uhKNcrUgaJkAy SEHch7wrslATjivkuUx9z4 wqJEYlArU5tMTeFNekS0kq lzXwkFWdJ8JayAQruLb9y9 jrGqAhBwK6hMZgZMunZ4wr exXxkXViKFCkGBe5xE49GP BtvK9vjBGqGTgmhkHpRmF3 DKsnREPmKtD9THQrmADvPI UbF1wdYCAvIVeaZJIkGKzr eINqKIP6nDoak4K3pKNxbE RqnGcsXpPtNsTgApBYd1Mi PQm4iVdxE3CmLTCmEuX2kR QgUGFyYWdyYXBoIEZvbnQ7 jXmwkrNyw67duZBbNKUyHV FrKdNxkTlgRIBgUQBNj7Xm pFrqMLI0lSb8oKpvKxywLA H4Urt1XI7yxu58xcp3qPay ZVVxzhhgHyT1CEjyRXQduo ziLNc1HUbmILDvsBA1LREu uQFwM9QqLIPwDL9laur2YX Q1DSwyDVRgEuY4RRLrlGNc XQTznSuwEOcqi713KTD6Cr AwIZ3rT1Hir5G5gD7hzEBn GQXyvVYkLkHcMWHirk1ztV KfTCqmo6RmJFF6prA1eBXa gMDtLYJfKV09Emtlt8DeBq zsr8UhN65diEO9CRdtu8cg CW6lKtS7idDoLSqpn1flnN 2gIjJ4ZGlpCK0pGW1hXWLl cF0dgxvzLIIrGcPgxmidWJ KttOnwpnJjEi3tpZceHTR3 UAitR4ctuH9hIqL3HOluM2 bzzK7aWUo2LQmgsXR1YMGa tC5oBR8vaiknx6zvHQokOF dnQVTzigF9wfZ5NYPlmYOi A2PteP1kCKHaDA7ldrtnu6 amULW0UOafDKJyNRN2RhMj KDBsp6Gpmgu8OiClx7MtxF FaSNntE90on852BUEwdwUz B3xysABsnuuwtOXldfetCI fwklK1CGYvWUYdNDwtMEXr XGZzMjJcbGFuZzEwMzNcaG ljaFxmMVxkYmNoXGYxXGxv L0jzOiAdE2InKXQpRcKjDY ueQNudlGNscKLkqFG0bF6b KR6zAVFytKVhX5RoRNAhny HdiHQkQOE4hTLtpPXfXL2s ZJttrSZgu8vyb3WiD4qciG rzuXQ6EZ8fPXEtQWEuHDnj z9TsmU3iCczaeXRpxzbuJJ xmczIyXGxhbmcxMDMzXGhp G5xqIsMsOSAblOyjVWand3 NoXGYxXGNmMlxmczIyXGx0 cmNoXHBhclxwYXJccGxhaW 2eWaBkAoQnPpzuCW0kLMHp N3wnxLKiWOEdZUWsI9qwIi UkdL9gmNxvJGmdDgIrWxGz GuFNw600gr3uPUWteXBvnf VKxZZhlQ6zDMxqVBoqXJcm pNTuKInbt2uiZLBfn3j5sL DjXTVzezXgf5xqBVhwoiZl BKLnsGMnfGOvBJLav86vVQ mcmDmwqRqcJSZav7HjeZjt a0AdRaPjEApen6BaR90mrW JvbCBzbGlkZXMgcnVuIGFs k59kq7oiCGNhYgN1sRJqrA C7rUZgtMPcy8ApmVviVJLz a1pzJXJcot9ixdlnqCAgs5 UrqN6wzqhqUVrjvEUqosVr WDFdh1c7lGJcOPPtOYYpRE opjNr3WTAlb586xf1qhzO4 jBAwPGA4QXxzASLyGMGume UgZXZhbHVhdGVkXHBsYWlu XGYxXGZzMjJcbGFuZzEwMz NcaGljaFxmMVxkYmNoXGYx XWouA9txOwEtW4RvCJToPu MgkXYzW2gjfMEzCLDzESip XGYxXGZzMjJcbGFuZzEwMz NcaGljaFxmMVxkYmNoXGYx PIlnX9xhPmYnE1JuJJDeWo IgIFxwbGFpblxmMVxmczIy ZTxwftsxTZNyCEwqC7ncZd FmEMLjkAcfNZomo3ZtJJPb ESEyVxpxgaHqMFm9muAhQR BhclxwbGFpblxmMVxmczIy MZyiourxQFRbYCiwC3qrMy LnUSTgnVxhKAwlu8WwGUQa XGNmMlxmczIyIEltbXVub2 egn2HaY0bvxLsraCQ4VETn D2exaUFdiGV3AJC7tG8wWR vbbgZmVWUjc6LwEQGnZMZl NnW8kM0eMFR0KbTIvDvoVV BsYWluXGYxXGZzMjJcbGFu ZzEwMzNcaGljaFxmMVxkYm GpOPJgHFzcX5fhMaGwY2Su GVGoDsNbeLczCIulOJz9Nf xwbGFpblxmMVxmczIyXGxh rzhfQWGfDIzdF4qxViMzYQ BuyRsoFMeke3DmTOTmQFBt MlxmczIyIHMgTWVkaWNhbC IXLP06BODrOUDnmAepgC1z vHUNEZUaqiC9x5M5SPewIF QdCQi6DTtzeiMoSEAdqB0g MCDkKJ1eDMw6jbKnXQGau8 NsAN2pZEXohADcZSF7ZPJa b0YaD4Ziw0SrETGsKLAivp 7ttwNwTqOKrTEuAUAnep87 PEWmTK6qX3bfSMFcPWVooa QtcAIxg9DjVBZszTW6kFMl ED0DAhUIk67pTMAdCPRTgw UeAJTbaOqdwWM3diF4iE0b LiBUaGUgRkRBIGhhcyBkZX Cspi7qejRuIENoPKLiw6Pw wUYolZZfzqKpU5Lon7FxLN Szyb71UClxlWIblq45QR5w S7Gpy3LziQ0hFOdsBWUqz9 JwiHTerZOmMUQii4JzO7vp rjtoBIanbMWhlH2jONDwYW x7WOXiz2GpGKBwr9UtSdRm kmDgVMEzRYRxZQFweM27MC X7wBihjVflmdWxIA9eGTGy axAiKFFsEINlxH3wJRbzqc YsHDKjnuH8l2H6VImrFHYt omUmGkvlMCL0cwBufiW0cU HfD7edbcngKEnsRGKch4Nr oX5gyXJUhJXrp7PqqIFztF QHsNSaQI5zrcWxTT9bSKE8 ODggKENMSUEtODgpIGFzIH C6QOhcPqdwIJA4udJpFKVl x0UpLFhkE2xsS69yiIfqmW r1mHVliSaocPFtrKCeMXUt maR5m8F7KZZkq7FqaihfYD BsYWluXGYyXGZzMjJcbGFu ZzEwMzNcaGljaFxmMlxkYm VyLSWhTOsdG0jbRkDpEdMe EmdsGOQ3sY== Gross assessment was [facility] performed at ([facility], = 2777) Department of Pathology, [address] [place] [address], Technical component was [facility] performed at ([facility], = 2778) Department of Pathology, [address] [place], [place] [address], Professional component [facility] was performed at ([facility], code = 2779) Department of Pathology, [address] [place], [place] [address], [facility] 15:38:03Medical Cytology Report Case: [id number] Authorizing Provider: Minal Joy MD Collected: 10/08/2022 02:53 PM Ordering Location: [address] Received: 10/10/2022 09:36 AM Service Pathologist: Jimena Anton MD Specimen: Pleural, Left LEFT PLEURAL FLUID (CYTOSPINS AND CELL BLOCK): - RAREATYPICAL CELLS, SUSPICIOUS FOR MALIGNANCY (SEE COMMENT) Signing Pathologist Direct Phone Line: [phone] signed by Jimena Anton MD on 10/14/2022 at 3:38 PMThe specimen is composed ofreactive mesothelial cells and chronic inflammation. On the cell block material, an atypical group of epithelial cells is identified that stains positively for [place]-8, MOC31, Miquel-Ep4. These cells are not readily identified on the cytospins, but a rare psamomma body is. Therefore, these findings are interpreted as atypical cells, suspicious for malignancy. Phan Gillette MD concurs with these findings.[id number], [id number], [id number], [id number] y.o. female with PMH of HFrEF (EF 40-44%), CAD, pAfib, metastatic ovarian cancer, malignant pleural effusions, chronic hypoxic respiratory failure (on 2L NC), recent admit for acute on chronic res failure on 09/19/22-09/28/22 Presents as a transfer from [facility] for further evaluation of decompensated CHF. [...] evaluated Immunohistochemistry technical testing was performed at [facility], Pathology Laboratory where it was developed and [...] qualified to perform high complexity clinical laboratory testing.[facility], Department of Pathology, [address] [place] [address], [place] [address], [facility], Department of Pathology, [address] [place] [address], [facility], Department of Pathology, [address] [place] [address], Qgsv fluid culture + gram [id number] 08:02:58 Test Item Value Reference Range Interpretation Comments Result (test code = 6463-4) No growth [facility] [id number] 08:02:58 Test Item Value Reference Range Interpretation Comments Result (test code = 6463-4) No growth [facility] + gram [id number] 08:02:58 Test Item Value Reference Range Interpretation Comments Result (test code = 6463-4) No growth [facility] + gram [id number] 08:02:58 Test Item Value Reference Range Interpretation Comments Result (test code = 6463-4) No growth [facility] + gram [id number] 08:02:58 Test Item Value Reference Range Interpretation Comments Result (test code = 6463-4) No growth [facility] + gram [id number] 08:02:58 Test Item Value Reference Range Interpretation Comments Result (test code = 6463-4) No growth [facility] + gram [id number] 08:02:58 Test Item Value Reference Range Interpretation Comments Result (test code = 6463-4) No growth [facility] + gram [id number] 08:02:58 Test Item Value Reference Range Interpretation Comments Result (test code = 6463-4) No growth [facility] + gram [id number] 08:02:58 Test Item Value Reference Range Interpretation Comments Result (test code = 6463-4) No growth [facility] + GRAM [id number] 08:02:58 Test Item Value Reference Range Interpretation Comments CULTURE (BEAKER) (test code = 1095) No growth Prepare [id number] 23:54:00 Test Item Value Reference Range Interpretation Comments CROSSMATCH (test code = 2264) COMPATIBLE Unit ABO (test code = A Pos 4936098) UNIT NUMBER (test code = [id number] 934-0) Status (test code = 5218155) [place]_TIMEINCHART Blood Bank Product (test code RED BLOOD CELLS = 2263) PRODUCT CODE (test code = D1044Q77 933-2) [facility] [id number] 23:54:00 Test Item Value Reference Range Interpretation Comments CROSSMATCH (test code = 2264) COMPATIBLE Unit ABO (test code = A Pos 4509208) UNIT NUMBER (test code = [id number] 934-0) Status (test code = 3986276) [place]_TIMEINCHART Blood Bank Product (test code RED BLOOD CELLS = 2263) PRODUCT CODE (test code = N5582C43 933-2) [facility] [id number] 23:54:00 Test Item Value Reference Range Interpretation Comments CROSSMATCH (test code = 2264) COMPATIBLE Unit ABO (test code = A Pos 2541559) UNIT NUMBER (test code = [id number] 934-0) Status (test code = 4351479) [place]_TIMEINCHART Blood Bank Product (test code RED BLOOD CELLS = 2263) PRODUCT CODE (test code = Y7338Q96 933-2) [facility] [id number] 23:54:00 Test Item Value Reference Range Interpretation Comments CROSSMATCH (test code = 2264) COMPATIBLE Unit ABO (test code = A Pos 4593026) UNIT NUMBER (test code = [id number] 934-0) Status (test code = 6773770) [place]_TIMEINCHART Blood Bank Product (test code RED BLOOD CELLS = 2263) PRODUCT CODE (test code = [id number] 933-2) [facility] [id number] 23:54:00 Test Item Value Reference Range Interpretation Comments CROSSMATCH (test code = 2264) COMPATIBLE Unit ABO (test code = A Pos 2200741) UNIT NUMBER (test code = [id number] 934-0) Status (test code = 6694906) [place]_TIMEINCHART Blood Bank Product (test code RED BLOOD CELLS = 2263) PRODUCT CODE (test code = Y8879X05 933-2) [facility] [id number] 23:54:00 Test Item Value Reference Range Interpretation Comments CROSSMATCH (test code = 2264) COMPATIBLE Unit ABO (test code = A Pos 0670280) UNIT NUMBER (test code = [id number] 934-0) Status (test code = 7589009) [place]_TIMEINCHART Blood Bank Product (test code RED BLOOD CELLS = 2263) PRODUCT CODE (test code = N9021U50 933-2) [facility] [id number] 23:54:00 Test Item Value Reference Range Interpretation Comments CROSSMATCH (test code = 2264) COMPATIBLE Unit ABO (test code = A Pos 4829751) UNIT NUMBER (test code = [id number] 934-0) Status (test code = 9332937) [place]_TIMEINCHART Blood Bank Product (test code RED BLOOD CELLS = 2263) PRODUCT CODE (test code = N5047A43 933-2) [facility] [id number] 23:54:00 Test Item Value Reference Range Interpretation Comments CROSSMATCH (test code = 2264) COMPATIBLE Unit ABO (test code = A Pos 4310298) UNIT NUMBER (test code = [id number] 934-0) Status (test code = 0275014) [place]_TIMEINCHART Blood Bank Product (test code RED BLOOD CELLS = 2263) PRODUCT CODE (test code = M8873A26 933-2) [facility] [id number] 23:54:00 Test Item Value Reference Range Interpretation Comments CROSSMATCH (test code = 2264) COMPATIBLE Unit ABO (test code = A Pos 1026211) UNIT NUMBER (test code = [id number] 934-0) Status (test code = 7833592) [place]_TIMEINCHART Blood Bank Product (test code RED BLOOD CELLS = 2263) PRODUCT CODE (test code = L2998O24 933-2) [facility] 04:46:14 Test Item Value Reference Range Interpretation Comments FERRITIN (BEAKER) (test code = 138.62 ng/mL 5.00-275.00 361) [facility] [place] GCOMPREHENSIVE METABOLIC [id number] 04:28:51 Test Item Value Reference Range Interpretation [...] not appl icable for dialysis patien ts [facility] [place] [id number] 04:28:51 Test Item Value Reference Range Interpretation Comments MAGNESIUM (BEAKER) (test code = 1.7 mg/dL 1.6-2.6 627) [facility] [place] LIM, TIBC, % SAT. (WITHOUT FERRITIN)2022-10-10 04:26:09 Test Item Value Reference Range Interpretation Comments IRON (BEAKER) (test code = 547) 34.0 ug/dL 40.0-160.0 L TOTAL IRON BINDING CAPACITY 310 ug/dL 250-450 (BEAKER) (test code = 769) IRON % SATURATION (2) (BEAKER) 11 % 20-55 L (test code = 2590) [facility] [place] GCBC W/PLT COUNT & AUTO [id number] 04:04:18 Test Item Value Reference Range Interpretation [...] code = 2801) Lactate dehydrogenase (LDH), body [id number] 21:19:45 Test Item Value Reference Range Interpretation Comments LDH, Fluid (test 76 U/L code = 30655-0) ANGE (test code = Absence of reference ANGE) range indicates that normals have not been defined.Assay performance has not been validated for this type of specimen. [facility] - [id number] [facility] ([facility]), body [id number] 21:19:45 Test Item Value Reference Range Interpretation Comments LDH, Fluid (test 76 U/L code = 36760-4) ANGE (test code = Absence of reference ANGE) range indicates that normals have not been defined.Assay performance has not been validated for this type of specimen. [facility] ID - [id number] [facility] ([facility]), body [id number] 21:19:45 Test Item Value Reference Range Interpretation Comments LDH, Fluid (test 76 U/L code = 74851-0) ANGE (test code = Absence of reference ANGE) range indicates that normals have not been defined.Assay performance has not been validated for this type of specimen. [facility] ID - [id number] [facility] [id number] 21:19:45 Test Item Value Reference Range Interpretation Comments LDH, Fluid (test 76 U/L code = 58312-3) ANGE (test code = Absence of reference ANGE) range indicates that normals have not been defined.Assay performance has not been validated for this type of specimen. [facility] ID - [id number] [facility] (LD[facility]), body [id number] 21:19:45 Test Item Value Reference Range Interpretation Comments LDH, Fluid (test 76 U/L code = 58910-5) ANGE (test code = Absence of reference ANGE) range indicates that normals have not been defined.Assay performance has not been validated for this type of specimen. [facility] ID - [id number] [facility] ([facility]), body [id number] 21:19:45 Test Item Value Reference Range Interpretation Comments LDH, Fluid (test 76 U/L code = 63612-5) ANGE (test code = Absence of reference ANGE) range indicates that normals have not been defined.Assay performance has not been validated for this type of specimen. [facility] ID - [id number] [facility] Center[facility] (LD[facility]), body [id number] 21:19:45 Test Item Value Reference Range Interpretation Comments LDH, Fluid (test 76 U/L code = 52316-5) ANGE (test code = Absence of reference ANGE) range indicates that normals have not been defined.Assay performance has not been validated for this type of specimen. [facility] ID - [id number] [place] [facility] CenterLactate dehydrogenase (LDH), body [id number] 21:19:45 Test Item Value Reference Range Interpretation Comments LDH, Fluid (test 76 U/L code = 14342-2) ANGE (test code = Absence of reference ANGE) range indicates that normals have not been defined.Assay performance has not been validated for this type of specimen. Equity Trader ID - [id number] [facility] CenterL[facility] dehydrogenase (LDH), body [id number] 21:19:45 Test Item Value Reference Range Interpretation Comments LDH, Fluid (test 76 U/L code = 34563-9) ANGE (test code = Absence of reference ANGE) range indicates that normals have not been defined.Assay performance has not been validated for this type of specimen. Equity Trader ID - [id number] [facility] CenterLACTATE DEHYDROGENASE (LDH), BODY [id number] 21:19:45 Test Item Value Reference Range Interpretation Comments LACTATE DEHYDROGENASE FLUID (BEAKER) 76 U/L (test code = 634) Absence of reference range indicates that normals have not been defined.Assay performance has not been validated for this type of specimen.Equity Trader ID - [id number], body [id number] 21:16:41 Test Item Value Reference Range Interpretation Comments Protein, Fluid (test 1.2 g/dL code = 2881-1) ANGE (test code = Absence of reference ANGE) range indicates that normals have not been defined.Assay performance has not been validated for this type of specimen. Equity Trader ID - [id number] [facility] CenterProtein, body [id number] 21:16:41 Test Item Value Reference Range Interpretation Comments Protein, Fluid (test 1.2 g/dL code = 2881-1) ANGE (test code = Absence of reference ANGE) range indicates that normals have not been defined.Assay performance has not been validated for this type of specimen. Equity Trader ID - [id number] [facility] CenterProtein, body [id number] 21:16:41 Test Item Value Reference Range Interpretation Comments Protein, Fluid (test 1.2 g/dL code = 2881-1) ANGE (test code = Absence of reference ANGE) range indicates that normals have not been defined.Assay performance has not been validated for this type of specimen. Equity Trader ID - [id number] [facility] CenterProtein, body [id number] 21:16:41 Test Item Value Reference Range Interpretation Comments Protein, Fluid (test 1.2 g/dL code = 2881-1) ANGE (test code = Absence of reference ANGE) range indicates that normals have not been defined.Assay performance has not been validated for this type of specimen. Equity Trader ID - [id number] [facility] CenterProtein, body [id number] 21:16:41 Test Item Value Reference Range Interpretation Comments Protein, Fluid (test 1.2 g/dL code = 2881-1) ANGE (test code = Absence of reference ANGE) range indicates that normals have not been defined.Assay performance has not been validated for this type of specimen. Equity Trader ID - [id number] [facility] CenterProtein, body [id number] 21:16:41 Test Item Value Reference Range Interpretation Comments Protein, Fluid (test 1.2 g/dL code = 2881-1) ANGE (test code = Absence of reference ANGE) range indicates that normals have not been defined.Assay performance has not been validated for this type of specimen. Equity Trader ID - [id number] [facility] CenterProtein, body [id number] 21:16:41 Test Item Value Reference Range Interpretation Comments Protein, Fluid (test 1.2 g/dL code = 2881-1) ANGE (test code = Absence of reference ANGE) range indicates that normals have not been defined.Assay performance has not been validated for this type of specimen. Equity Trader ID - [id number] [facility] CenterProtein, body [id number] 21:16:41 Test Item Value Reference Range Interpretation Comments Protein, Fluid (test 1.2 g/dL code = 2881-1) ANGE (test code = Absence of reference ANGE) range indicates that normals have not been defined.Assay performance has not been validated for this type of specimen. Equity Trader ID - [id number] [facility] CenterProtein, body [id number] 21:16:41 Test Item Value Reference Range Interpretation Comments Protein, Fluid (test 1.2 g/dL code = 2881-1) ANGE (test code = Absence of reference ANGE) range indicates that normals have not been defined.Assay performance has not been validated for this type of specimen. Equity Trader ID - [id number] [facility] CenterPROTEIN, BODY [id number] 21:16:41 Test Item Value Reference Range Interpretation Comments PROTEIN FLUID (BEAKER) (test code = 1.2 g/dL 579) Absence of reference range indicates that normals have not been defined.Assay performance has not been validated for this type of specimen.Equity Trader ID - [id number], body [id number] 21:15:43 Test Item Value Reference Range Interpretation Comments Glucose, Body Fluid 158 mg/dL (test code = 2344-0) ANGE (test code = Absence of reference ANGE) range indicates that normals have not been defined.Assay performance has not been validated for this type of specimen. Equity Trader ID - [id number] [facility] CenterGlucose, body [id number] 21:15:43 Test Item Value Reference Range Interpretation Comments Glucose, Body Fluid 158 mg/dL (test code = 2344-0) ANGE (test code = Absence of reference ANGE) range indicates that normals have not been defined.Assay performance has not been validated for this type of specimen. Equity Trader ID - [id number] [facility] CenterGlucose, body [id number] 21:15:43 Test Item Value Reference Range Interpretation Comments Glucose, Body Fluid 158 mg/dL (test code = 2344-0) ANGE (test code = Absence of reference ANGE) range indicates that normals have not been defined.Assay performance has not been validated for this type of specimen. Equity Trader ID - [id number] [facility] CenterGlucose, body [id number] 21:15:43 Test Item Value Reference Range Interpretation Comments Glucose, Body Fluid 158 mg/dL (test code = 2344-0) ANGE (test code = Absence of reference ANGE) range indicates that normals have not been defined.Assay performance has not been validated for this type of specimen. Equity Trader ID - [id number] [facility] CenterGlucose, body [id number] 21:15:43 Test Item Value Reference Range Interpretation Comments Glucose, Body Fluid 158 mg/dL (test code = 2344-0) ANGE (test code = Absence of reference ANGE) range indicates that normals have not been defined.Assay performance has not been validated for this type of specimen. Equity Trader ID - [id number] [facility] CenterGlucose, body [id number] 21:15:43 Test Item Value Reference Range Interpretation Comments Glucose, Body Fluid 158 mg/dL (test code = 2344-0) ANGE (test code = Absence of reference ANGE) range indicates that normals have not been defined.Assay performance has not been validated for this type of specimen. Equity Trader ID - [id number] [facility] CenterGlucose, body [id number] 21:15:43 Test Item Value Reference Range Interpretation Comments Glucose, Body Fluid 158 mg/dL (test code = 2344-0) ANGE (test code = Absence of reference ANGE) range indicates that normals have not been defined.Assay performance has not been validated for this type of specimen. Equity Trader ID - [id number] [facility] CenterGlucose, body [id number] 21:15:43 Test Item Value Reference Range Interpretation Comments Glucose, Body Fluid 158 mg/dL (test code = 2344-0) ANGE (test code = Absence of reference ANGE) range indicates that normals have not been defined.Assay performance has not been validated for this type of specimen. Equity Trader ID - [id number] [facility] CenterGlucose, body [id number] 21:15:43 Test Item Value Reference Range Interpretation Comments Glucose, Body Fluid 158 mg/dL (test code = 2344-0) ANGE (test code = Absence of reference ANGE) range indicates that normals have not been defined.Assay performance has not been validated for this type of specimen. Equity Trader ID - [id number] [facility] CenterGLUCOSE, BODY [id number] 21:15:43 Test Item Value Reference Range Interpretation Comments GLUCOSE, BODY FLUID (BEAKER) (test 158 mg/dL code = 1528) Absence of reference range indicates that normals have not been defined.Assay performance has not been validated for this type of specimen.Equity Trader ID - [id number] SENSITIVITY TROPONIN [id number] 10:57:14 Test Item Value Reference Range Interpretation Comments HIGH SENSITIVITY 80 pg/ml See_Comment H [Automated message] TROPONIN I (test code = The system which 8867248) generated this result transmitted ref erence range: <=17. Th e reference range was not used to int erpret this result as normal/abnormal . Equity Trader ID - [id number] CHIEF NURSE ANESTHETIST STAT High Sensitivity Troponin-I results should be used in conjunctionwith other diagnostic information such as ECG, clinical observations and information, and patient symptoms to aid in the diagnosis of [place].COMPREHENSIVE METABOLIC [id number] 07:13:30 Test Item Value Reference Range Interpretation [...] not appl icable for dialysis patien ts Equity Trader ID - [place] [id number] 07:13:30 Test Item Value Reference Range Interpretation Comments MAGNESIUM (BEAKER) (test code = 1.9 mg/dL 1.6-2.6 627) Equity Trader ID - [place] GCBC W/PLT COUNT & AUTO [id number] 06:51:27 Test Item Value Reference Range Interpretation [...] = 2801) Body fluid cell count with [id number] 17:11:59 Test Item Value Reference Range Interpretation Comments Appearance (test code = Clear Clear 9335-1) Color (test code = Yellow Colorless, Straw A 6824-7) RBCs (test code = 54 See_Comment H [Automate d message] 49155-2) The system [employer] generated this result transmit lavon reference range : <=1 /cu mm. The reference range was not used to interpret this result as normal/abnormal . Adjusted WBC Count 63 See_Comment H [Automat ed message] (test code = 25958-4) The sy stem which generated this result transmit lavon reference range : <=5 /cu mm. The reference range was not used to interpret this result as normal/abnormal . Adjusted lining 0 See_Comment [Automated message] cells/Others (test code The system which = 72153-9) generated this result transmit lavon reference range : <=1 /cu mm. The reference range was not used to interpret this result as normal/abnormal . % Segs (test code = 16 % 11023-6) % Lymphs (test code = 27 % 48711-6) % Monos (test code = 57 % 95650-4) % Eos (test code = 0 % 14224-5) % Baso (test code = 0 % 82822-3) Container Body Fluid EDTA Tube (test code = 2873) Lab Interpretation Abnormal (test code = 13012-9) [facility] CenterBody fluid cell count with oipwqnjgphqq2133-89-80 17:11:59 Test Item Value Reference Range Interpretation Comments Appearance (test code = Clear Clear 9335-1) Color (test code = Yellow Colorless, Straw A 6824-7) RBCs (test code = 54 See_Comment H [Automate d message] 34937-8) The system [employer] generated this result transmit lavon reference range : <=1 /cu mm. The reference range was not used to interpret this result as normal/abnormal . Adjusted WBC Count 63 See_Comment H [Automat ed message] (test code = 02649-5) The sy stem which generated this result transmit lavon reference range : <=5 /cu mm. The reference range was not used to interpret this result as normal/abnormal . Lining Cells (test code 0 See_Comment [Au tomated message] = 59817-9) The system [employer] generated this result transmit lavon reference range : <=1 /cu mm. The reference range was not used to interpret this result as normal/abnormal . % Segs (test code = 16 % 32257-2) % Lymphs (test code = 27 % 78508-9) % Monos (test code = 57 % 55647-9) % Eos (test code = 0 % 68276-3) % Baso (test code = 0 % 52436-4) Container Body Fluid EDTA Tube (test code = 2873) Lab Interpretation Abnormal (test code = 39657-7) [facility] Center[facility] cell count with viibxvrytroe7962-41-20 17:11:59 Test Item Value Reference Range Interpretation Comments Appearance (test code = Clear Clear 9335-1) Color (test code = Yellow Colorless, Straw A 6824-7) RBCs (test code = 54 See_Comment H [Automate d message] 98542-4) The system [employer] generated this result transmit lavon reference range : <=1 /cu mm. The reference range was not used to interpret this result as normal/abnormal . Adjusted WBC Count 63 See_Comment H [Automat ed message] (test code = 91103-6) The sy stem which generated this result transmit lavon reference range : <=5 /cu mm. The reference range was not used to interpret this result as normal/abnormal . Lining Cells (test code 0 See_Comment [Au tomated message] = 15109-8) The system [employer] generated this result transmit lavon reference range : <=1 /cu mm. The reference range was not used to interpret this result as normal/abnormal . % Segs (test code = 16 % 68526-3) % Lymphs (test code = 27 % 55001-0) % Monos (test code = 57 % 61181-8) % Eos (test code = 0 % 71275-6) % Baso (test code = 0 % 83787-6) Container Body Fluid EDTA Tube (test code = 2873) Lab Interpretation Abnormal (test code = 93450-4) [facility] Center[facility] cell count with tdkfdzadhcst7891-09-86 17:11:59 Test Item Value Reference Range Interpretation Comments Appearance (test code = Clear Clear 9335-1) Color (test code = Yellow Colorless, Straw A 6824-7) RBCs (test code = 54 See_Comment H [Automate d message] 93734-4) The system [employer] generated this result transmit lavon reference range : <=1 /cu mm. The reference range was not used to interpret this result as normal/abnormal . Adjusted WBC Count 63 See_Comment H [Automat ed message] (test code = 89312-4) The sy stem which generated this result transmit lavon reference range : <=5 /cu mm. The reference range was not used to interpret this result as normal/abnormal . Lining Cells (test code 0 See_Comment [Au tomated message] = 48448-9) The system [employer] generated this result transmit lavon reference range : <=1 /cu mm. The reference range was not used to interpret this result as normal/abnormal . % Segs (test code = 16 % 03603-7) % Lymphs (test code = 27 % 71128-6) % Monos (test code = 57 % 34022-4) % Eos (test code = 0 % 43451-8) % Baso (test code = 0 % 21983-3) Container Body Fluid EDTA Tube (test code = 2873) Lab Interpretation Abnormal (test code = 07824-8) [facility] CenterBody [facility] cell count with jrebrurzfysl4863-34-36 17:11:59 Test Item Value Reference Range Interpretation Comments Appearance (test code = Clear Clear 9335-1) Color (test code = Yellow Colorless, Straw A 6824-7) RBCs (test code = 54 See_Comment H [Automate d message] 82617-0) The system [employer] generated this result transmit lavon reference range : <=1 /cu mm. The reference range was not used to interpret this result as normal/abnormal . Adjusted WBC Count 63 See_Comment H [Automat ed message] (test code = 47697-5) The sy stem which generated this result transmit lavon reference range : <=5 /cu mm. The reference range was not used to interpret this result as normal/abnormal . Lining Cells (test code 0 See_Comment [Au tomated message] = 51612-7) The system [employer] generated this result transmit lavon reference range : <=1 /cu mm. The reference range was not used to interpret this result as normal/abnormal . % Segs (test code = 16 % 52222-8) % Lymphs (test code = 27 % 75873-5) % Monos (test code = 57 % 47344-6) % Eos (test code = 0 % 99984-5) % Baso (test code = 0 % 15226-6) Container Body Fluid EDTA Tube (test code = 2873) Lab Interpretation Abnormal (test code = 67050-8) [facility] Center[facility] fluid cell count with hlwgstzqbdrp8414-16-32 17:11:59 Test Item Value Reference Range Interpretation Comments Appearance (test code = Clear Clear 9335-1) Color (test code = Yellow Colorless, Straw A 6824-7) RBCs (test code = 54 See_Comment H [Automate d message] 37953-4) The system [employer] generated this result transmit lavon reference range : <=1 /cu mm. The reference range was not used to interpret this result as normal/abnormal . Adjusted WBC Count 63 See_Comment H [Automat ed message] (test code = 21706-8) The sy stem which generated this result transmit lavon reference range : <=5 /cu mm. The reference range was not used to interpret this result as normal/abnormal . Lining Cells (test code 0 See_Comment [Au tomated message] = 73658-0) The system [employer] generated this result transmit lavon reference range : <=1 /cu mm. The reference range was not used to interpret this result as normal/abnormal . % Segs (test code = 16 % 72893-1) % Lymphs (test code = 27 % 58213-2) % Monos (test code = 57 % 04564-0) % Eos (test code = 0 % 85425-8) % Baso (test code = 0 % 47573-6) Container Body Fluid EDTA Tube (test code = 2873) Lab Interpretation Abnormal (test code = 84058-0) [facility] Center[facility] cell count with dmaoczqzcird7537-17-77 17:11:59 Test Item Value Reference Range Interpretation Comments Appearance (test code = Clear Clear 9335-1) Color (test code = Yellow Colorless, Straw A 6824-7) RBCs (test code = 54 See_Comment H [Automate d message] 33960-7) The system [employer] generated this result transmit lavon reference range : <=1 /cu mm. The reference range was not used to interpret this result as normal/abnormal . Adjusted WBC Count 63 See_Comment H [Automat ed message] (test code = 60990-1) The sy stem which generated this result transmit lavon reference range : <=5 /cu mm. The reference range was not used to interpret this result as normal/abnormal . Lining Cells (test code 0 See_Comment [Au tomated message] = 88370-2) The system [employer] generated this result transmit lavon reference range : <=1 /cu mm. The reference range was not used to interpret this result as normal/abnormal . % Segs (test code = 16 % 26304-7) % Lymphs (test code = 27 % 26989-8) % Monos (test code = 57 % 90974-0) % Eos (test code = 0 % 30734-9) % Baso (test code = 0 % 29807-2) Container Body Fluid EDTA Tube (test code = 2873) Lab Interpretation Abnormal (test code = 79561-8) [facility] Center[facility] cell count with aqtfplmntkpx7154-73-35 17:11:59 Test Item Value Reference Range Interpretation Comments Appearance (test code = Clear Clear 9335-1) Color (test code = Yellow Colorless, Straw A 6824-7) RBCs (test code = 54 See_Comment H [Automate d message] 41626-1) The system [employer] generated this result transmit lavon reference range : <=1 /cu mm. The reference range was not used to interpret this result as normal/abnormal . Adjusted WBC Count 63 See_Comment H [Automat ed message] (test code = 58963-7) The sy stem which generated this result transmit lavon reference range : <=5 /cu mm. The reference range was not used to interpret this result as normal/abnormal . Lining Cells (test code 0 See_Comment [Au tomated message] = 75107-1) The system [employer] generated this result transmit lavon reference range : <=1 /cu mm. The reference range was not used to interpret this result as normal/abnormal . % Segs (test code = 16 % 34383-1) % Lymphs (test code = 27 % 16352-9) % Monos (test code = 57 % 21136-7) % Eos (test code = 0 % 28062-9) % Baso (test code = 0 % 43331-7) Container Body Fluid EDTA Tube (test code = 2873) Lab Interpretation Abnormal (test code = 86167-1) [facility] Center[facility] cell count with iszfybqbgdgj4638-85-24 17:11:59 Test Item Value Reference Range Interpretation Comments Appearance (test code = Clear Clear 9335-1) Color (test code = Yellow Colorless, Straw A 6824-7) RBCs (test code = 54 See_Comment H [Automate d message] 04701-6) The system [employer] generated this result transmit lavon reference range : <=1 /cu mm. The reference range was not used to interpret this result as normal/abnormal . Adjusted WBC Count 63 See_Comment H [Automat ed message] (test code = 23528-9) The sy stem which generated this result transmit lavon reference range : <=5 /cu mm. The reference range was not used to interpret this result as normal/abnormal . Lining Cells (test code 0 See_Comment [Au tomated message] = 85200-5) The system [employer] generated this result transmit lavon reference range : <=1 /cu mm. The reference range was not used to interpret this result as normal/abnormal . % Segs (test code = 16 % 01920-7) % Lymphs (test code = 27 % 41177-2) % Monos (test code = 57 % 32256-4) % Eos (test code = 0 % 54933-6) % Baso (test code = 0 % 63580-6) Container Body Fluid EDTA Tube (test code = 2873) Lab Interpretation Abnormal (test code = 28180-6) [facility] CenterB[facility] FLUID CELL COUNT WITH [id number] 17:11:59 Test Item Value Reference Range Interpretation [...] (test code = The sy stem which 1691) generated this result transmitted ref erence range: [...] Tube (BEAKER) (test code = 2873) U/S, [id number] 15:49:00Laterality?->LeftReason for exam:- >Large left pleural effusionShould this be performed at the bedside?- >NoLabs to be Ordered:->Body Fluid Culture (w/Gram Stain, C\\T\\S)Labs to be Ordered:->Cell CountLabs to be Ordered:->CytologyLabs to be Ordered:->Glucose+LDH+Protein [facility] : 1935 Sex: FFINAL REPORT Ultrasound guided left thoracentesis. Clinical History: Left pleural effusion. Modality: Ultrasound. Sedation: None. [employer] Administrator: Arin Landry PA-C [place] Closer: None. Estimated Blood Loss: 1cc Specimen: 850 [...] ultrasound guided left thoracentesis. Signed: Cherie Nuno Verified Date/Time: 10/08/2022 15:49:39 Reading Location: [address] Ultrasound Reading Room RAD, CHEST, 1 VIEW, NON [id number] 15:38:00Reason for exam:->s/p left thoraShould this be performed at the bedside?->YesIn US [facility] : 1935 Sex: FFINAL REPORT TECHNIQUE: Frontal [...] 10/08/2022 15:38:09 Urinalysis w/Microscopic + Reflex to [id number] 15:16:47 Test Item Value Reference Range Interpretation Comments Color, UA (test code Yellow = 5778-6) Clarity, UA (test Clear code = 5767-9) Specific [place], UA 1.012 1.001-1.035 (test code = 5811-5) pH, UA (test code = 6.0 5.0-8.0 5803-2) Protein, UA (test Negative Negative code = 10106-5) Glucose, UA (test Negative Negative code = 365) Ketones, UA (test Negative Negative code = 2514-8) Bilirubin, UA (test Negative Negative code = 67793-8) Blood, UA (test code Small Negative A = 65317-0) Nitrite, UA (test Negative Negative code = 5802-4) Leukocytes, UA (test Small Negative A code = 5799-2) Urobilinogen, UA 0.2 0.2-1.0 (test code = 86917-1) RBC, UA (test code = 7 See_Comment [Autom ated 70330-8) message] The system which generated this result [...] 1 See_Comment [Automate d (test code = 13994-5) messag e] The system which generated this result transmit lavon reference range : /HPF. The reference range was not used to interpret this result as normal/abnormal . Specimen Source (test code = 2795) ANGE (test code = ANGE) Equity Trader ID - [auto]Equity Trader ID - tech Lab Interpretation Abnormal (test code = 08783-2) [facility] Center[facility]/Microscopic + Reflex to Culture 2022-10-08 15:16:47 Test Item Value Reference Range Interpretation Comments Color, UA (test code Yellow = 5778-6) Clarity, UA (test Clear code = 5767-9) Specific [place], UA 1.012 1.001-1.035 (test code = 5811-5) pH, UA (test code = 6.0 5.0-8.0 5803-2) Protein, UA (test Negative Negative code = 08489-6) Glucose, UA (test Negative Negative code = 365) Ketones, UA (test Negative Negative code = 2514-8) Bilirubin, UA (test Negative Negative code = 77795-4) Blood, UA (test code Small Negative A = 95752-8) Nitrite, UA (test Negative Negative code = 5802-4) Leukocytes, UA (test Small Negative A code = 5799-2) Urobilinogen, UA 0.2 0.2-1.0 (test code = 66832-3) RBC, UA (test code = 7 See_Comment [Autom ated 19117-5) message] The system which generated this result [...] 1 See_Comment [Automate d (test code = 45393-7) messag e] The system which generated this result transmit lavon reference range : /HPF. The reference range was not used to interpret this result as normal/abnormal . Specimen Source (test code = 2795) ANGE (test code = ANGE) Equity Trader ID - [auto]Equity Trader ID - tech Lab Interpretation Abnormal (test code = 27233-3) [facility] 2022-10-08 15:16:47 Test Item Value Reference Range Interpretation Comments Color, UA (test code Yellow = 5778-6) Clarity, UA (test Clear code = 5767-9) Specific [place], UA 1.012 1.001-1.035 (test code = 5811-5) pH, UA (test code = 6.0 5.0-8.0 5803-2) Protein, UA (test Negative Negative code = 73715-0) Glucose, UA (test Negative Negative code = 365) Ketones, UA (test Negative Negative code = 2514-8) Bilirubin, UA (test Negative Negative code = 58099-9) Blood, UA (test code Small Negative A = 68860-1) Nitrite, UA (test Negative Negative code = 5802-4) Leukocytes, UA (test Small Negative A code = 5799-2) Urobilinogen, UA 0.2 0.2-1.0 (test code = 21998-1) RBC, UA (test code = 7 See_Comment [Autom ated 32446-2) message] The system which generated this result [...] 1 See_Comment [Automate d (test code = 73051-6) messag e] The system which generated this result transmit lavon reference range : /HPF. The reference range was not used to interpret this result as normal/abnormal . Specimen Source (test code = 2795) ANGE (test code = ANGE) Equity Trader ID - [auto]Equity Trader ID - tech Lab Interpretation Abnormal (test code = 19012-6) [facility] Reflex [facility] Culture 2022-10-08 15:16:47 Test Item Value Reference Range Interpretation Comments Color, UA (test code Yellow = 5778-6) Clarity, UA (test Clear code = 5767-9) Specific [place], UA 1.012 1.001-1.035 (test code = 5811-5) pH, UA (test code = 6.0 5.0-8.0 5803-2) Protein, UA (test Negative Negative code = 98331-1) Glucose, UA (test Negative Negative code = 365) Ketones, UA (test Negative Negative code = 2514-8) Bilirubin, UA (test Negative Negative code = 06108-0) Blood, UA (test code Small Negative A = 80030-7) Nitrite, UA (test Negative Negative code = 5802-4) Leukocytes, UA (test Small Negative A code = 5799-2) Urobilinogen, UA 0.2 0.2-1.0 (test code = 93602-8) RBC, UA (test code = 7 See_Comment [Autom ated 77546-1) message] The system which generated this result [...] 1 See_Comment [Automate d (test code = 38570-6) messag e] The system which generated this result transmit lavon reference range : /HPF. The reference range was not used to interpret this result as normal/abnormal . Specimen Source (test code = 2795) ANGE (test code = ANGE) Equity Trader ID - [auto]Equity Trader ID - tech Lab Interpretation Abnormal (test code = 27476-9) [facility] Reflex [facility] Culture 2022-10-08 15:16:47 Test Item Value Reference Range Interpretation Comments Color, UA (test code Yellow = 5778-6) Clarity, UA (test Clear code = 5767-9) Specific [place], UA 1.012 1.001-1.035 (test code = 5811-5) pH, UA (test code = 6.0 5.0-8.0 5803-2) Protein, UA (test Negative Negative code = 22930-6) Glucose, UA (test Negative Negative code = 365) Ketones, UA (test Negative Negative code = 2514-8) Bilirubin, UA (test Negative Negative code = 11771-9) Blood, UA (test code Small Negative A = 46595-1) Nitrite, UA (test Negative Negative code = 5802-4) Leukocytes, UA (test Small Negative A code = 5799-2) Urobilinogen, UA 0.2 0.2-1.0 (test code = 30784-6) RBC, UA (test code = 7 See_Comment [Autom ated 58395-9) message] The system which generated this result [...] 1 See_Comment [Automate d (test code = 35527-1) messag e] The system which generated this result transmit lavon reference range : /HPF. The reference range was not used to interpret this result as normal/abnormal . Specimen Source (test code = 2795) ANGE (test code = ANGE) Equity Trader ID - [auto]Equity Trader ID - tech Lab Interpretation Abnormal (test code = 52658-9) [facility] Reflex [facility] Culture 2022-10-08 15:16:47 Test Item Value Reference Range Interpretation Comments Color, UA (test code Yellow = 5778-6) Clarity, UA (test Clear code = 5767-9) Specific [place], UA 1.012 1.001-1.035 (test code = 5811-5) pH, UA (test code = 6.0 5.0-8.0 5803-2) Protein, UA (test Negative Negative code = 41627-6) Glucose, UA (test Negative Negative code = 365) Ketones, UA (test Negative Negative code = 2514-8) Bilirubin, UA (test Negative Negative code = 45396-3) Blood, UA (test code Small Negative A = 61400-6) Nitrite, UA (test Negative Negative code = 5802-4) Leukocytes, UA (test Small Negative A code = 5799-2) Urobilinogen, UA 0.2 0.2-1.0 (test code = 63571-3) RBC, UA (test code = 7 See_Comment [Autom ated 36569-6) message] The system which generated this result [...] 1 See_Comment [Automate d (test code = 41440-6) messag e] The system which generated this result transmit lavon reference range : /HPF. The reference range was not used to interpret this result as normal/abnormal . Specimen Source (test code = 2795) ANGE (test code = ANGE) Equity Trader ID - [auto]Equity Trader ID - tech Lab Interpretation Abnormal (test code = 03992-2) [facility] Reflex to Culture 2022-10-08 15:16:47 Test Item Value Reference Range Interpretation Comments Color, UA (test code Yellow = 5778-6) Clarity, UA (test Clear code = 5767-9) Specific [place], UA 1.012 1.001-1.035 (test code = 5811-5) pH, UA (test code = 6.0 5.0-8.0 5803-2) Protein, UA (test Negative Negative code = 33953-4) Glucose, UA (test Negative Negative code = 365) Ketones, UA (test Negative Negative code = 2514-8) Bilirubin, UA (test Negative Negative code = 22940-9) Blood, UA (test code Small Negative A = 49983-4) Nitrite, UA (test Negative Negative code = 5802-4) Leukocytes, UA (test Small Negative A code = 5799-2) Urobilinogen, UA 0.2 0.2-1.0 (test code = 87946-7) RBC, UA (test code = 7 See_Comment [Autom ated 56051-3) message] The system which generated this result [...] 1 See_Comment [Automate d (test code = 14467-9) messag e] The system which generated this result transmit lavon reference range : /HPF. The reference range was not used to interpret this result as normal/abnormal . Specimen Source (test code = 2795) ANGE (test code = ANGE) Equity Trader ID - [auto]Equity Trader ID - tech Lab Interpretation Abnormal (test code = 63081-3) [facility] Reflex to Culture 2022-10-08 15:16:47 Test Item Value Reference Range Interpretation Comments Color, UA (test code Yellow = 5778-6) Clarity, UA (test Clear code = 5767-9) Specific [place], UA 1.012 1.001-1.035 (test code = 5811-5) pH, UA (test code = 6.0 5.0-8.0 5803-2) Protein, UA (test Negative Negative code = 49420-2) Glucose, UA (test Negative Negative code = 365) Ketones, UA (test Negative Negative code = 2514-8) Bilirubin, UA (test Negative Negative code = 15197-5) Blood, UA (test code Small Negative A = 07259-3) Nitrite, UA (test Negative Negative code = 5802-4) Leukocytes, UA (test Small Negative A code = 5799-2) Urobilinogen, UA 0.2 0.2-1.0 (test code = 28068-1) RBC, UA (test code = 7 See_Comment [Autom ated 11484-8) message] The system which generated this result [...] 1 See_Comment [Automate d (test code = 13318-5) messag e] The system which generated this result transmit lavon reference range : /HPF. The reference range was not used to interpret this result as normal/abnormal . Specimen Source (test code = 2795) ANGE (test code = ANGE) Equity Trader ID - [auto]Equity Trader ID - tech Lab Interpretation Abnormal (test code = 23476-6) [facility] Reflex to Culture 2022-10-08 15:16:47 Test Item Value Reference Range Interpretation Comments Color, UA (test code Yellow = 5778-6) Clarity, UA (test Clear code = 5767-9) Specific [place], UA 1.012 1.001-1.035 (test code = 5811-5) pH, UA (test code = 6.0 5.0-8.0 5803-2) Protein, UA (test Negative Negative code = 18696-8) Glucose, UA (test Negative Negative code = 365) Ketones, UA (test Negative Negative code = 2514-8) Bilirubin, UA (test Negative Negative code = 48232-2) Blood, UA (test code Small Negative A = 90238-6) Nitrite, UA (test Negative Negative code = 5802-4) Leukocytes, UA (test Small Negative A code = 5799-2) Urobilinogen, UA 0.2 0.2-1.0 (test code = 96018-5) RBC, UA (test code = 7 See_Comment [Autom ated 66900-5) message] The system which generated this result [...] 1 See_Comment [Automate d (test code = 10783-2) messag e] The system which generated this result transmit lavon reference range : /HPF. The reference range was not used to interpret this result as normal/abnormal . Specimen Source (test code = 2795) ANEG (test code = ANGE) Equity Trader ID - [auto]Equity Trader ID - tech Lab Interpretation Abnormal (test code = 98885-3) [facility]LEX URINE [id number] 15:16:47 Test Item Value Reference Range Interpretation [...] = 516) SOURCE(BEAKER) (test code = 2795) Equity Trader ID - [auto]Equity Trader ID - techRAD, CHEST, 1 VIEW, NON [id number] 10:20:00Reason for exam:->dyspneaShould this be performed at the bedside?->Yes[facility] : 1935 Sex: FFINAL [...] size. No acute bone abnormality. Signed: Cherie Nunoeport Verified Date/Time:10/08/2022 10:20:01 Reading Location: [address] Body Reading Room Urinalysis with Microscopic If [id number] 10:02:41 Test Item Value Reference Range Interpretation Comments Color, UA (test code = Yellow 5778-6) Clarity, UA (test code = Hazy 5767-9) Specific [place], UA (test 1.015 1.001-1.035 code = 5811-5) pH, UA (test code = 5.0 5.0-8.0 5803-2) Protein, UA (test code = 30 mg/dL Negative A 45640-7) Glucose, UA (test code = Negative Negative 365) Ketones, UA (test code = Trace Negative A 2514-8) Bilirubin, UA (test code = Negative Negative 63061-4) Blood, UA (test code = Large Negative A 90197-5) Nitrite, UA (test code = Negative Negative 5802-4) Leukocytes, UA (test code Large Negative A = 5799-2) Urobilinogen, UA (test 0.2 0.2-1.0 code = 61417-5) Specimen Source (test code = 2795) ANGE (test code = ANGE) Equity Trader ID - [auto]Equity Trader ID - tech Lab Interpretation (test Abnormal code = 57490-4) [facility] If [id number] 10:02:41 Test Item Value Reference Range Interpretation Comments Color, UA (test code = Yellow 5778-6) Clarity, UA (test code = Hazy 5767-9) Specific [place], UA (test 1.015 1.001-1.035 code = 5811-5) pH, UA (test code = 5.0 5.0-8.0 5803-2) Protein, UA (test code = 30 mg/dL Negative A 60618-8) Glucose, UA (test code = Negative Negative 365) Ketones, UA (test code = Trace Negative A 2514-8) Bilirubin, UA (test code = Negative Negative 04705-0) Blood, UA (test code = Large Negative A 24898-8) Nitrite, UA (test code = Negative Negative 5802-4) Leukocytes, UA (test code Large Negative A = 5799-2) Urobilinogen, UA (test 0.2 0.2-1.0 code = ) Specimen Source (test code = 2795) ANGE (test code = ANGE) Equity Trader ID - [auto]Equity Trader ID - tech Lab Interpretation (test Abnormal code = 06326-7) [facility] If [id number] 10:02:41 Test Item Value Reference Range Interpretation Comments Color, UA (test code = Yellow 5778-6) Clarity, UA (test code = Hazy 5767-9) Specific [place], UA (test 1.015 1.001-1.035 code = 5811-5) pH, UA (test code = 5.0 5.0-8.0 5803-2) Protein, UA (test code = 30 mg/dL Negative A 01360-9) Glucose, UA (test code = Negative Negative 365) Ketones, UA (test code = Trace Negative A 2514-8) Bilirubin, UA (test code = Negative Negative 00131-0) Blood, UA (test code = Large Negative A 56180-5) Nitrite, UA (test code = Negative Negative 5802-4) Leukocytes, UA (test code Large Negative A = 5799-2) Urobilinogen, UA (test 0.2 0.2-1.0 code = 30902-0) Specimen Source (test code = 2795) ANGE (test code = ANGE) Equity Trader ID - [auto]Equity Trader ID - tech Lab Interpretation (test Abnormal code = 32834-7) [facility] If [id number] 10:02:41 Test Item Value Reference Range Interpretation Comments Color, UA (test code = Yellow 5778-6) Clarity, UA (test code = Hazy 5767-9) Specific [place], UA (test 1.015 1.001-1.035 code = 5811-5) pH, UA (test code = 5.0 5.0-8.0 5803-2) Protein, UA (test code = 30 mg/dL Negative A 99658-8) Glucose, UA (test code = Negative Negative 365) Ketones, UA (test code = Trace Negative A 2514-8) Bilirubin, UA (test code = Negative Negative 16231-2) Blood, UA (test code = Large Negative A 01307-3) Nitrite, UA (test code = Negative Negative 5802-4) Leukocytes, UA (test code Large Negative A = 5799-2) Urobilinogen, UA (test 0.2 0.2-1.0 code = 14457-5) Specimen Source (test code = 2795) ANGE (test code = ANGE) Equity Trader ID - [auto]Equity Trader ID - tech Lab Interpretation (test Abnormal code = 82320-4) [facility] If [id number] 10:02:41 Test Item Value Reference Range Interpretation Comments Color, UA (test code = Yellow 5778-6) Clarity, UA (test code = Hazy 5767-9) Specific [place], UA (test 1.015 1.001-1.035 code = 5811-5) pH, UA (test code = 5.0 5.0-8.0 5803-2) Protein, UA (test code = 30 mg/dL Negative A 63575-5) Glucose, UA (test code = Negative Negative 365) Ketones, UA (test code = Trace Negative A 2514-8) Bilirubin, UA (test code = Negative Negative 41628-3) Blood, UA (test code = Large Negative A 43155-4) Nitrite, UA (test code = Negative Negative 5802-4) Leukocytes, UA (test code Large Negative A = 5799-2) Urobilinogen, UA (test 0.2 0.2-1.0 code = 90016-4) Specimen Source (test code = 2795) ANGE (test code = ANGE) Equity Trader ID - [auto]Equity Trader ID - tech Lab Interpretation (test Abnormal code = 44791-4) [facility] If [id number] 10:02:41 Test Item Value Reference Range Interpretation Comments Color, UA (test code = Yellow 5778-6) Clarity, UA (test code = Hazy 5767-9) Specific [place], UA (test 1.015 1.001-1.035 code = 5811-5) pH, UA (test code = 5.0 5.0-8.0 5803-2) Protein, UA (test code = 30 mg/dL Negative A 99093-9) Glucose, UA (test code = Negative Negative 365) Ketones, UA (test code = Trace Negative A 2514-8) Bilirubin, UA (test code = Negative Negative 75724-6) Blood, UA (test code = Large Negative A 52324-7) Nitrite, UA (test code = Negative Negative 5802-4) Leukocytes, UA (test code Large Negative A = 5799-2) Urobilinogen, UA (test 0.2 0.2-1.0 code = 61946-4) Specimen Source (test code = 2795) ANGE (test code = ANGE) Equity Trader ID - [auto]Equity Trader ID - tech Lab Interpretation (test Abnormal code = 89921-5) [facility] If [id number] 10:02:41 Test Item Value Reference Range Interpretation Comments Color, UA (test code = Yellow 5778-6) Clarity, UA (test code = Hazy 5767-9) Specific [place], UA (test 1.015 1.001-1.035 code = 5811-5) pH, UA (test code = 5.0 5.0-8.0 5803-2) Protein, UA (test code = 30 mg/dL Negative A 16615-7) Glucose, UA (test code = Negative Negative 365) Ketones, UA (test code = Trace Negative A 2514-8) Bilirubin, UA (test code = Negative Negative 19382-0) Blood, UA (test code = Large Negative A 66138-9) Nitrite, UA (test code = Negative Negative 5802-4) Leukocytes, UA (test code Large Negative A = 5799-2) Urobilinogen, UA (test 0.2 0.2-1.0 code = 51515-8) Specimen Source (test code = 2795) ANGE (test code = ANGE) Equity Trader ID - [auto]Equity Trader ID - tech Lab Interpretation (test Abnormal code = 24963-0) [facility] If [id number] 10:02:41 Test Item Value Reference Range Interpretation Comments Color, UA (test code = Yellow 5778-6) Clarity, UA (test code = Hazy 5767-9) Specific [place], UA (test 1.015 1.001-1.035 code = 5811-5) pH, UA (test code = 5.0 5.0-8.0 5803-2) Protein, UA (test code = 30 mg/dL Negative A 21148-6) Glucose, UA (test code = Negative Negative 365) Ketones, UA (test code = Trace Negative A 2514-8) Bilirubin, UA (test code = Negative Negative 80493-0) Blood, UA (test code = Large Negative A 72075-9) Nitrite, UA (test code = Negative Negative 5802-4) Leukocytes, UA (test code Large Negative A = 5799-2) Urobilinogen, UA (test 0.2 0.2-1.0 code = 51523-9) Specimen Source (test code = 2795) ANGE (test code = ANGE) Equity Trader ID - [auto]Equity Trader ID - tech Lab Interpretation (test Abnormal code = 03069-4) [facility] If [id number] 10:02:41 Test Item Value Reference Range Interpretation Comments Color, UA (test code = Yellow 5778-6) Clarity, UA (test code = Hazy 5767-9) Specific [place], UA (test 1.015 1.001-1.035 code = 5811-5) pH, UA (test code = 5.0 5.0-8.0 5803-2) Protein, UA (test code = 30 mg/dL Negative A 80459-1) Glucose, UA (test code = Negative Negative 365) Ketones, UA (test code = Trace Negative A 2514-8) Bilirubin, UA (test code = Negative Negative 70530-7) Blood, UA (test code = Large Negative A 60859-6) Nitrite, UA (test code = Negative Negative 5802-4) Leukocytes, UA (test code Large Negative A = 5799-2) Urobilinogen, UA (test 0.2 0.2-1.0 code = 90871-4) Specimen Source (test code = 2795) ANGE (test code = ANGE) Equity Trader ID - [auto]Equity Trader ID - tech Lab Interpretation (test Abnormal code = 73508-9) [facility]CROSCOPIC IF [id number] 10:02:41 Test Item Value Reference Range Interpretation [...] = 463) SOURCE(BEAKER) (test code = 2795) Equity Trader ID - [auto]Equity Trader ID - techUrinalysis Microscopic [id number] 10:02:35 Test Item Value Reference Range Interpretation Comments RBC, UA (test code 131 See_Comment [Automat ed = 98983-9) message] The sy stem which generated this [...] (test code = message] The sy stem 91723-3) which generated this result transmitted reference range : /HPF. The refer ence range was not u sed to interpret th is result as normal/abnormal . Amorphous Crystals Few (test code = 59981-9) ANGE (test code = Equity Trader ID - ANGE) [facility] [id number] 10:02:35 Test Item Value Reference Range Interpretation Comments RBC, UA (test code 131 See_Comment [Automat ed = 29668-6) message] The sy stem which generated this [...] (test code = message] The sy stem 99804-2) which generated this result transmitted reference range : /HPF. The refer ence range was not u sed to interpret th is result as normal/abnormal . Amorphous Crystals Few (test code = 88011-6) ANGE (test code = Equity Trader ID - ANGE) [facility] [id number] 10:02:35 Test Item Value Reference Range Interpretation Comments RBC, UA (test code 131 See_Comment [Automat ed = 89888-3) message] The sy stem which generated this [...] (test code = message] The sy stem 26842-2) which generated this result transmitted reference range : /HPF. The refer ence range was not u sed to interpret th is result as normal/abnormal . Amorphous Crystals Few (test code = 29133-8) ANGE (test code = Equity Trader ID - ANGE) [facility] [id number] 10:02:35 Test Item Value Reference Range Interpretation Comments RBC, UA (test code 131 See_Comment [Automat ed = 96631-2) message] The sy stem which generated this [...] (test code = message] The sy stem 26320-7) which generated this result transmitted reference range : /HPF. The refer ence range was not u sed to interpret th is result as normal/abnormal . Amorphous Crystals Few (test code = 86468-2) ANGE (test code = Equity Trader ID - ANGE) [facility] [id number] 10:02:35 Test Item Value Reference Range Interpretation Comments RBC, UA (test code 131 See_Comment [Automat ed = 58636-2) message] The sy stem which generated this [...] (test code = message] The sy stem 62125-3) which generated this result transmitted reference range : /HPF. The refer ence range was not u sed to interpret th is result as normal/abnormal . Amorphous Crystals Few (test code = 45555-8) ANGE (test code = Equity Trader ID - ANGE) [facility] [id number] 10:02:35 Test Item Value Reference Range Interpretation Comments RBC, UA (test code 131 See_Comment [Automat ed = 37333-4) message] The sy stem which generated this [...] (test code = message] The sy stem 31013-7) which generated this result transmitted reference range : /HPF. The refer ence range was not u sed to interpret th is result as normal/abnormal . Amorphous Crystals Few (test code = 71055-2) ANGE (test code = Equity Trader ID - ANGE) [facility] [id number] 10:02:35 Test Item Value Reference Range Interpretation Comments RBC, UA (test code 131 See_Comment [Automat ed = 95482-7) message] The sy stem which generated this [...] (test code = message] The sy stem 21333-9) which generated this result transmitted reference range : /HPF. The refer ence range was not u sed to interpret th is result as normal/abnormal . Amorphous Crystals Few (test code = 79356-2) ANGE (test code = Equity Trader ID - ANGE) [facility] [id number] 10:02:35 Test Item Value Reference Range Interpretation Comments RBC, UA (test code 131 See_Comment [Automat ed = 34468-9) message] The sy stem which generated this [...] (test code = message] The sy stem 58971-4) which generated this result transmitted reference range : /HPF. The refer ence range was not u sed to interpret th is result as normal/abnormal . Amorphous Crystals Few (test code = 72179-9) ANGE (test code = Equity Trader ID - ANGE) [facility] [id number] 10:02:35 Test Item Value Reference Range Interpretation Comments RBC, UA (test code 131 See_Comment [Automat ed = 38414-2) message] The sy stem which generated this [...] (test code = message] The sy stem 89172-2) which generated this result transmitted reference range : /HPF. The refer ence range was not u sed to interpret th is result as normal/abnormal . Amorphous Crystals Few (test code = 11099-9) ANGE (test code = Equity Trader ID - ANGE) [facility] [id number] 10:02:35 Test Item Value Reference Range Interpretation Comments RBC UA (BEAKER) (test code = 519) 131 /HPF WBC UA (BEAKER) (test code = 520) 554 /HPF MUCUS (BEAKER) (test code = 1574) Rare SQUAMOUS EPITHELIAL (BEAKER) (test 1 /HPF code = 516) AMORPHOUS CRYSTALS (BEAKER) (test Few code = 1584) Equity Trader ID - techPROTHROMBIN TIME/[id number] 09:44:16 Test Item Value Reference Range Interpretation Comments PROTIME (BEAKER) 14.6 seconds 11.9-14.2 H (test code = 759) INR (BEAKER) (test 1.17 See_Comment [Automat ed message] code = 370) The system [employer] generated this result transmitted ref erence range: [...] not appl icable for dialysis patien ts Equity Trader ID - [place] GCBC W/PLT COUNT & AUTO [id number] 05:33:27 Test Item Value Reference Range Interpretation [...] 0-100 H (BEAKER) (test code = 700) Equity Trader ID - BSHIGH SENSITIVITY TROPONIN [id number] 23:04:18 Test Item Value Reference Range Interpretation Comments HIGH SENSITIVITY 282 pg/ml See_Comment H [Automated message] TROPONIN I (test code The stem which = 2103703) generated this result transmitted ref erence range: <=17. Th e reference range was not used to int erpret this result as normal/abnormal . Equity Trader ID - BSThe CHIEF NURSE ANESTHETIST STAT High Sensitivity Troponin-I results should be used in conjunctionwith other diagnostic information such as ECG, clinical observations and information, and patient symptoms to aid in the diagnosis of [place].COMPREHENSIVE METABOLIC [id number] 22:58:33 Test Item Value Reference Range Interpretation [...] decreased 60-89 G3a Mildl y to moderately 45- 59 G3b Moderately to s everely 30-44 G4 Severl y decreased 15-29 G5 Kidney failure <15Reported eGF R is based on the CKD-EPI 2020 equation that d oes not use a race coefficientEsti mated GFR is not as accur ate as Creatinine Kailyn lobo in predicting glom erular filtration rate . Estimated GFR is not appl icable for dialysis patien ts Equity Trader ID - [id number] 05:08:16 Test Item Value Reference Range Interpretation Comments MAGNESIUM (BEAKER) (test code = 1.7 mg/dL 1.6-2.6 627) Equity Trader ID - NINOSKA WBASIC METABOLIC [id number] 05:08:15 Test Item Value Reference Range Interpretation [...] eGFR (test code = mL/min/1.73 values Stage D escription 1092) sq m Result G1 Dionne l [...] not appl icable for dialysis patien ts Equity Trader ID - NINOSKA WCBC W/PLT COUNT & AUTO [id number] 04:42:42 Test Item Value Reference Range Interpretation [...] = 2801) RAD, CHEST, 1 VIEW, NON [id number] 20:44:00Reason for exam:- >pacemakerShould this be performed at the bedside?->Yes [facility] : 1935 Sex: FFINAL [...] Juan Miguel Thomas Verified Date/Time: 09/27/2022 20:44:10 BASI METABOLIC [id number] 05:36:45 Test Item Value Reference Range Interpretation [...] not appl icable for dialysis patien ts Equity Trader ID - FELIPA [id number] 05:36:45 Test Item Value Reference Range Interpretation Comments MAGNESIUM (BEAKER) (test code = 1.4 mg/dL 1.6-2.6 L 627) Equity Trader ID - FELIPA LCBC W/PLT COUNT & AUTO [id number] 04:51:24 Test Item Value Reference Range Interpretation [...] (BEAKER) (test code = 2801) BASIC METABOLIC [id number] 09:39:28 Test Item Value Reference Range Interpretation [...] not appl icable for dialysis patien ts Equity Trader ID - MITCHSARS-CoV2/RT-PCR (Asymptomatic ONLY)2022-09-26 02:40:50 Test Item Value Reference Interpretation Comments Range SARS-COV2/RT-PCR Negative Negative The SARS-Co V-2 (test code = target nucleic 43380-2) acids are not detected in thi s [...] revoked sooner. Fact Sheet for Healthcare Providers: https://www.[employer]/Documents/Xp ert%20Xpress%20SAR S%20CoV-2/Fact%20S heets/302-7579%20S ARS-COV-2%20HEALTH CARE%20PROVIDERS%2 0FACT%20SHEET.pdf Fact Sheet for Healthcare Patients: https://www.[employer]/Documents/Xp ert%20Xpress%20SAR S%20CoV-2/Fact%20S heets/302-3801%20S ARS-COV-2%20PATIEN T%20FACT%20SHEET.p df Lab Interpretation Normal (test code = 48443-3) [facility]2022-09-26 02:40:50 Test Item Value Reference Interpretation Comments Range SARS-COV2/RT-PCR Negative Negative The SARS-Co V-2 (test code = target nucleic 39346-2) acids are not detected in thi s [...] om SARS-CoV-2 in a nasopharyngeal swab specimen colle lavon from individual s suspected of COVID-19 [...] revoked sooner. Fact Sheet for Healthcare Providers: https://www.[employer]/Documents/Xp ert%20Xpress%20SAR S%20CoV-2/Fact%20S heets/302-3802%20S ARS-COV-2%20HEALTH CARE%20PROVIDERS%2 0FACT%20SHEET.pdf Fact Sheet for Healthcare Patients: https://www.[employer]/Documents/Xp ert%20Xpress%20SAR S%20CoV-2/Fact%20S heets/302-3801%20S ARS-COV-2%20PATIEN T%20FACT%20SHEET.p df Lab Interpretation Normal (test code = 29034-1) [facility]2022-09-26 02:40:50 Test Item Value Reference Interpretation Comments Range SARS-COV2/RT-PCR Negative Negative The SARS-Co V-2 (test code = target nucleic 59991-2) acids are not detected in thi s [...] om SARS-CoV-2 in a nasopharyngeal swab specimen colle lavon from individual s suspected of COVID-19 [...] revoked sooner. Fact Sheet for Healthcare Providers: https://www.[employer]/Documents/Xp ert%20Xpress%20SAR S%20CoV-2/Fact%20S heets/302-3802%20S ARS-COV-2%20HEALTH CARE%20PROVIDERS%2 0FACT%20SHEET.pdf Fact Sheet for Healthcare Patients: https://www.[employer]/Documents/Xp ert%20Xpress%20SAR S%20CoV-2/Fact%20S heets/302-3801%20S ARS-COV-2%20PATIEN T%20FACT%20SHEET.p df Lab Interpretation Normal (test code = 14990-0) [facility]2022-09-26 02:40:50 Test Item Value Reference Interpretation Comments Range SARS-COV2/RT-PCR Negative Negative The SARS-Co V-2 (test code = target nucleic 35368-6) acids are not detected in thi s [...] revoked sooner. Fact Sheet for Healthcare Providers: https://www.[employer]/Documents/Xp ert%20Xpress%20SAR S%20CoV-2/Fact%20S heets/3023802%20S ARS-COV-2%20HEALTH CARE%20PROVIDERS%2 0FACT%20SHEET.pdf Fact Sheet for Healthcare Patients: https://www.[employer]/Documents/Xp ert%20Xpress%20SAR S%20CoV-2/Fact%20S heets/302-3801%20S ARS-COV-2%20PATIEN T%20FACT%20SHEET.p df Lab Interpretation Normal (test code = 14043-9) [facility]2022-09-26 02:40:50 Test Item Value Reference Interpretation Comments Range SARS-COV2/RT-PCR Negative Negative The SARS-Co V-2 (test code = target nucleic 89320-3) acids are not detected in thi s [...] revoked sooner. Fact Sheet for Healthcare Providers: https://www.[employer]/Documents/Xp ert%20Xpress%20SAR S%20CoV-2/Fact%20S heets/302-3802%20S ARS-COV-2%20HEALTH CARE%20PROVIDERS%2 0FACT%20SHEET.pdf Fact Sheet for Healthcare Patients: https://www.[employer]/Documents/Xp ert%20Xpress%20SAR S%20CoV-2/Fact%20S heets/302-3801%20S ARS-COV-2%20PATIEN T%20FACT%20SHEET.p df Lab Interpretation Normal (test code = 22581-4) [facility]2022-09-26 02:40:50 Test Item Value Reference Interpretation Comments Range SARS-COV2/RT-PCR Negative Negative The SARS-Co V-2 (test code = target nucleic 96668-3) acids are not detected in thi s [...] revoked sooner. Fact Sheet for Healthcare Providers: https://www.[employer]/Documents/Xp ert%20Xpress%20SAR S%20CoV-2/Fact%20S heets/302-3802%20S ARS-COV-2%20HEALTH CARE%20PROVIDERS%2 0FACT%20SHEET.pdf Fact Sheet for Healthcare Patients: https://www.[employer]/Documents/Xp ert%20Xpress%20SAR S%20CoV-2/Fact%20S heets/302-3801%20S ARS-COV-2%20PATIEN T%20FACT%20SHEET.p df Lab Interpretation Normal (test code = 24901-8) [facility]2022-09-26 02:40:50 Test Item Value Reference Interpretation Comments Range SARS-COV2/RT-PCR Negative Negative The SARS-Co V-2 (test code = target nucleic 80222-3) acids are not detected in thi s [...] om SARS-CoV-2 in a nasopharyngeal swab specimen colle lavon from individual s suspected of COVID-19 [...] revoked sooner. Fact Sheet for Healthcare Providers: https://www.[employer]/Documents/Xp ert%20Xpress%20SAR S%20CoV-2/Fact%20S heets/302-3802%20S ARS-COV-2%20HEALTH CARE%20PROVIDERS%2 0FACT%20SHEET.pdf Fact Sheet for Healthcare Patients: https://www.[employer]/Documents/Xp ert%20Xpress%20SAR S%20CoV-2/Fact%20S heets/302-3801%20S ARS-COV-2%20PATIEN T%20FACT%20SHEET.p df Lab Interpretation Normal (test code = 70908-3) [facility]2022-09-26 02:40:50 Test Item Value Reference Interpretation Comments Range SARS-COV2/RT-PCR Negative Negative The SARS-Co V-2 (test code = target nucleic 13285-1) acids are not detected in thi s [...] om SARS-CoV-2 in a nasopharyngeal swab specimen colle lavon from individual s suspected of COVID-19 [...] revoked sooner. Fact Sheet for Healthcare Providers: https://www.[employer]/Documents/Xp ert%20Xpress%20SAR S%20CoV-2/Fact%20S heets/302-3802%20S ARS-COV-2%20HEALTH CARE%20PROVIDERS%2 0FACT%20SHEET.pdf Fact Sheet for Healthcare Patients: https://www.[employer]/Documents/Xp ert%20Xpress%20SAR S%20CoV-2/Fact%20S heets/302-3801%20S ARS-COV-2%20PATIEN T%20FACT%20SHEET.p df Lab Interpretation Normal (test code = 03721-6) [facility]2022-09-26 02:40:50 Test Item Value Reference Interpretation Comments Range SARS-COV2/RT-PCR Negative Negative The SARS-Co V-2 (test code = target nucleic 69778-0) acids are not detected in thi s [...] om SARS-CoV-2 in a nasopharyngeal swab specimen colle lavon from individual s suspected of COVID-19 [...] revoked sooner. Fact Sheet for Healthcare Providers: https://www.[employer]/Documents/Xp ert%20Xpress%20SAR S%20CoV-2/Fact%20S heets/302-3802%20S ARS-COV-2%20HEALTH CARE%20PROVIDERS%2 0FACT%20SHEET.pdf Fact Sheet for Healthcare Patients: https://www.[employer]/Documents/Xp ert%20Xpress%20SAR S%20CoV-2/Fact%20S heets/302-3801%20S ARS-COV-2%20PATIEN T%20FACT%20SHEET.p df Lab Interpretation Normal (test code = 65887-1) [facility]2022-09-26 02:40:50 Test Item Value Reference Interpretation Comments Range SARS-COV2/RT-PCR Negative Negative The SARS-Co V-2 (test code = target nucleic 88056-4) acids are not detected in thi s [...] revoked sooner. Fact Sheet for Healthcare Providers: https://www.[employer]/Documents/Xp ert%20Xpress%20SAR S%20CoV-2/Fact%20S heets/302-3802%20S ARS-COV-2%20HEALTH CARE%20PROVIDERS%2 0FACT%20SHEET.pdf Fact Sheet for Healthcare Patients: https://[employer]/Documents/Xp ert%20Xpress%20SAR S%20CoV-2/Fact%20S heets/302-3801%20S ARS-COV-2%20PATIEN T%20FACT%20SHEET.p df Lab Interpretation Normal (test code = 70286-8) [facility])2022-09-26 02:40:50 Test Item Value Reference Range Interpretation Comments SARS-COV2/RT-PCR Negative Negative The SARS-Co V-2 target (test code = nucleic acids a re not 3340851) detected in thi s specimen. Negative result [...] revoked sooner. Fact Sheet for Healthcare Providers: https://www.[employer]/Documents/Xpert%20Xpress%20SARS%20CoV-2/Fact%20Sheets/302-3802%71TYDG-UBC-4%20 HEALTHCARE%20PROVIDERS%20FACT%20SHEET.pdf Fact Sheet for Healthcare Patients: https://www.[employer]/Documents/Xpert%20Xp ress%20SARS%20CoV-2/Fact%20Sheets/3023801%83CRWU-DGU-6%20PATIENT%20FACT%20SHEET .pdfBLOOD [id number] 01:00:25 Test Item Value Reference Range Interpretation Comments CULTURE (BEAKER) (test No growth in 5 days code = 1095) The specimen volume collected for this blood culture was below the optimum (10 mL per bottle or 20 mL total). Use of lower volumes may adversely affect recovery and/or detection times of some organisms.BLOOD [id number] 01:00:25 Test Item Value Reference Range Interpretation [...] not appl icable for dialysis patien ts Equity Trader ID - ADMINSpecimen slightly ictericBody fluid culture + gram stain 2022-09-24 11:38:05 Test Item Value Reference Range Interpretation Comments Result (test code = 6463-4) No growth [facility] + GRAM [id number] 11:38:05 Test Item Value Reference Range Interpretation Comments CULTURE (BEAKER) (test code = 1095) No growth [id number] 17:07:59 Test Item Value Reference Range Interpretation Comments Case Report (test code Medical Cytology = 104) Report Case: [id number] Authorizing Provider: Javon Mcdowell Collected: 09/21/2022 01:31 PM Ordering Location: [address] Received: 09/21/2022 03:30 PM Service Pathologist: Jimena Anton MD Specimen: Pleural Cavity L DIAGNOSIS (test code = w5lyyWUiBQXgt8wnWDHlnP 6880) FuZzEwMzNcZnRuYmpcdWMx IHtccnRmMVxlcGljOTYwMl sxscEfSHFcvNCeU5Dynuaj OWyqIF5rBU9loAukwVXrmQ TmCDPnNcGbs5pwb002eJIh u9fvXEYPhvqraQk9aZbyW7 6fv8X1AzfoE08boRBuYEJ1 EVBgRUHejHEsDHNwQRD0QK KqgCHbI7njTJPyDU1gcmhl KNaeSIfxWCSsjKG9TKTfrJ XeV0DdPTNcMNdqKAIftwx7 ZzDsJp9mwXPubBfiXXxjJH JkXHBsYWluXGZzMjAgTEVG VCBQTEVVUkFMIEZMVUlEIC uICBMEZ1AWDrJrFH7GAATF TSpaHtdKL0yaZuSdvFOnAB ZdXP5vLwONZRGICIjBOtOJ QVRFRCBBVFlQSUNBTCBNVU vSDI2AV4jOQRKMSCICBObR IFBSRVNFTlQgKFNFRSBDT0 5WDZ5QUOtpGGR9s2mnjNYf XHNzdGUxODAwMFxhbnNpXG FuIdxyegvmFGBpGKV0vfBz SRLjJMmmISAoGBcnIz9toT DltGpmHbWrIZFzy9vmekLR ghswlWa7d6iwXPVqPzJ1aE IuAUucT6cqftUcfCSyMEDe CEh6xK80FCSnbE0stNPxAU hlggWoLlQ5UNveYXUjYqG1 QNDbzXKgEZTmR3ncXGXeOT wuVHOcQYqzqMPnOMK4kXqj m4W4gQJikFFttFemYnTaAs JoBaEXi2VxWPn8jVucN2El TAUtMxD5rHZxJUPwQZemPO SvLCWhkkM2uI57BCgufgA1 eKDou1Zmx50eg035wW8jzE PlTGX0KWTgECYjpEYuFEBy VOX8PWVnuWGwR3qkARDhUR 2bpcxvOQevSVmoUVSymKB6 YWTueHIcU4FxFYFyUIcfVL Letvt1HcSyUl1uzHHjzZyl AUjgp3jhf7zabZQhYwr1SZ FzPiRySmxfNNeid8Uuf8vp FUYowi4sOQH7yFDaxLyyi2 F4xAEuWGVmlDFrRACaJY6c gOPlDVQrtA0nemwoMMInQx EvlzlmDLAfqYleedYxDh6h hFltSWN8SFkzM9lacJ1wTb K2LUnhM9znsB4rAHc0DOof VCGynFD5yoI0UZEcpYOtR3 UrnX9zIQOpNV9gdev5p1yj DTT7LPmtQRNaEqZ8neX2DS ZfiMVqQDUlcEsnPWppc170 AXV7VyNkUDIeq7CxC0ZahZ bcP19epEawD49vZPUryHse iW4qsZdujJ9gDgRfVhNsJU buvEvaXV9cGZFnD7tqoTFw QZTkRRHtQ8wvEhJogS0kiN pnWPomddTbAVAqGhs0WAQz yNOsBDFcSgp9OLSjSLSwG7 4oghzwHKX7bQ4pg7iip0Zn OWlgCMH8JDLiw30mCTfcfq Y6RXtyUp02KHtfJGW6WYsu cGFyfX0= COMMENT (test code = w0djaKRvBOYczCN4ChUwNI 0499) Iry1opv7FyiPZudGLbCHim mJNgbsKlcw29gAS7yF65YP 8hUAYuJjA5HWOzfkO8Aas1 FQBpDVStiVFoT296r9vxc9 fsbyBsnYQ5gMikFVHimnvp WwC1LBhfMKXfwdnaDAp6YZ qjTCCafGP9MCHdxPReX6Ob YZAjFC8jtny0KNV0DGaaMZ ChDsP2SFDoiBVrJFBrmCgr NSnyd599VUL2RhEaCOBkcv VlsKnljU8cXwGgDFRZdCWc g0TqQ1nxMH6xvMPjfDjar2 TjkEq7iPWoKRVwAHHxIZIj yrDoWAKmGY3kP92xOUQaEM XmpI9rPF1zw856sQTeoCVd VWTpfZybKSWovTi6DIQjq4 h4hNQxF3P1MUApslGlWH6y QAXol54iRJIlODPuYGsoFQ EgcmFyZSBhdHlwaWNhbCBj TExlWDdwgZluBXUtVJ3ksj C8eUAeUFDzDE0dHKNxFU6g ZB48kTHplSxhJI10P1yyaG 4tTUPcal9= CPT Code(s) (test code j3jyjKTeIOCumTS3EcRcBI = 2909) Vuz6xkm0YraPLveFPvPWyl pRNuqfDjac52iNN9uP98TP 1yGVWfNaJ2OMDcdiE6Rhz4 SNUcAKUktOXgN036f2muv0 haflVxcWC4uLjfZZGjwrwu UmG6GKwsFODqncdrBHm3PB heSUXuiJI2XEEuoTLcY5Lg BVRnFK9tuhw3ZLX8UYlkKL GjAsX9IZRnrZPxJYBcrWfm PLnpb368PMY9TvGqFZJiox IngKmysR6cGxEsZEX4QTMt OCwgODgzMDVccGFyfQ== CLINICAL DATA (test x0cfzUKuQKBjfQZ3BsZoVL code = 3355) Tsa9nzg6XpoGKdoYWzJDgu hNVhdxJuxv04gVJ2pL81PB 7iXAIzPjT3LMFmwtD6Slb1 CHJvDARomDPtZ392i0rjq0 hpbeEfvAL6FUTpQGPlR5Fz CE5fYFHxyEZaO07eaTUxMY D0GACpSHTzrAZsCBDvWTS1 DPKjlHEbX2kzAGUjRC2ebd sxUSycVDsiEVKomAV6HJYi uQMiZ0TrDLMkGIdxAVCmam z2ViBrMw9msXUcmMadXGwm YXJkXHBsYWluXGZzMjBcY2 QbXZX0JOelFApIVL78IWFe VQ6iD5UwF8JeWPtjoKxksD VyaXRvbmVhbCBhbmQgbHVu StDbIHEpq8Sxx9BwWJZFkK BdCJacTyknnqqyoMC0rD4d LlxwYXJ9 SPECIMEN SOURCE (test f6rhlMPpZWHfdJZ6WwEtAJ code = 3377) Saj7ogh4LcoXLnrXTcDUca dYQxgiDsou03wDD3tY96EL 8uOSFfOtU4AUSzxqO9Fus4 UBGoPULpcIGjL124v6rnd1 fcxrUuuNI4hLcvZSKczyln FjO3ARpgJGBmhlgpVZn7BK zpYSXxyME9CKBzpNCiD5Te STYiOY9ibhg2JWX9YXyvPZ ZoKhL3GITeqMIxOJBmwZbe GUtzl448WDH1PdWgFNIayn IjhPmzpA0cVfYyBOHQBFWJ IFBMRVVSQUwgRkxVSURccG FyfQ== GROSS DESCRIPTION (test e4gyaKHkPQCfsWZ7QuYeRZ code = [id number]) Gzx6rkc1HpkAQjeRHkADjp iUSxuzDrpw71nVB3pI86DI 5pKZOrTpN2WQDbjsC1Kzc3 TSQqNJVfuEHoZ918v3mim1 fkelAplHC5sLmgBOHagkfy BcD8PDwfQROushgyNSs7GH umTIMpoTA7TTBltIOqK9Ko LLBuKZ3vwfo3WDU3VMxmOV DfBvS0WPNunHDbXXExtAbd HYwiy198DYU8HfSoFCSplg I3FXbxSWYiB1IkA0XuSLje FEG4SITcACMtHLQcHOUkKF ErMDcdvlC5w7keGQNalOKg KGR1NLomyZKwYIGsPLCyIB uiNyGLAuVqJfI3EIMvRFLp NeN3NWo4KSHCZqRaYxRhCo M5ZTZ1ZevmQUu6RJt6ELvG FuZ7ZeW8RDf7YCNqPEPvWS RdYVf8NRObSSwgaCNdLDHh ABJzDUqrVVhvL28etNycoD 8aOqSoXLQTMrATrFL7gdQe KLYoygr9hQGPRqbvNPLqSu YcWIFZLNVvyPTiNOU0MT1o IGFtYmVyIGZsdWlkOyBwcm TxGJZiVTU6FOP9gL2aqBco hvElxxUrJ9NzrSFdtV4bdu xTKicwRGI6qFCqQ2DijSOv bT4obzE6RVJsEea4KDEivI 6tXk7snHXutD4nBOQfDBC1 DNFaj52qSZYqMb3xUFHlx7 yyfEkch7MrcODkVC61IDZc nLTjJOO0SK2miDcgGDV6 MICROSCOPIC DESCRIPTION h7aepVYxILXgzKY9SoJyIF (test code = 3371) Wyb6ckn5VpwYXhsGKzOBfv kDZaycNfaq36zSN7fI39KP 4eZYPvWdL4LKBquyE4Qra7 JTFaZEZxvYIvV714y1sky0 wkkdUseUE9iPenAZYakcva RyE1TUarBWOrosvvTHe7MW ogBLBbiXH0GATfzOGoO7Xa UYQdAR3aqzu1ZEH4WDomEE QfUlE3OFVhyFXoWFEelUoe UClaj821XSZ7DlSwXXHeio QoqXaglF2fHnGnCFKPFKTr s8MuXDHvUBbaLYT6 STATEMENT OF ADEQUACY Satisfactory (test code = 2757) Gross assessment was [facility] performed at ([facility], = 2777) Department of Pathology, [address] [place] [address], Technical component was [facility] performed at ([facility], = 2778) Department of Pathology, [address] [place] [address], Professional component [facility] was performed at ([facility], code = 2779) Department of Pathology, [address] [place] [address], [facility] 17:07:59Medical Cytology Report Case: [id number] Authorizing Provider: Javon Mcdowell Collected: 09/21/2022 01:31PM Ordering Location: [address] Received: 09/21/2022 03:30 PM Service Pathologist: Jimena Anton MD Specimen: Pleural Cavity L LEFT PLEURAL FLUID (CYTOSPINS AND CELL BLOCK): - RARE DEGENERATED ATYPICAL MULTINUCLEATED CELL PRESENT (SEE COMMENT) Signing Pathologist Direct Phone Line: [phone] signed by Jimena Anton MD on 09/23/2022 at 5:07 PMThe specimen is hypocellular and has rare benign appearing mesothelial cells admixed with acute inflammation. There is a rare atypical cell with degenerative changes and multiple nuclei. 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 Pleural Cavity L.Received 8 ml tirso fluid; prepared 4 cytospins and cell block(A2) - the cell block was fixed in formalin at 15:43 on 09/21/2022erformed. [facility], [facility] of [facility], [address] [place] [address], [facility], Department of Pa thology, [address] [place] [address], [facility], Department of Pathology, [address] [place] [address], [facility] [place] [address], HVNSO METABOLIC [id number] 08:30:44 Test Item Value Reference Range Interpretation [...] not appl icable for dialysis patien ts Equity Trader ID - NINOSKA [id number] 08:30:44 Test Item Value Reference Range Interpretation Comments MAGNESIUM (BEAKER) (test code = 1.8 mg/dL 1.6-2.6 627) Equity Trader ID Verenice XIAO WCBC W/PLT COUNT & AUTO [id number] 07:47:47 Test Item Value Reference Range Interpretation [...] code = 2801) LACTATE DEHYDROGENASE (LDH), BODY [id number] 09:31:07 Test Item Value Reference Range Interpretation Comments LACTATE DEHYDROGENASE FLUID (BEAKER) 67 U/L (test code = 634) Absence of reference range indicates that normals have not been defined.Assay performance has not been validated for this type of specimen.Equity Trader ID - [id number] dehydrogenase (LDH), body [id number] 09:30:45 Test Item Value Reference Range Interpretation Comments LDH, Fluid (test 63 U/L code = 21223-0) ANGE (test code = Absence of reference ANGE) range indicates that normals have not been defined.Assay performance has not been validated for this type of specimen. Equity Trader ID - [id number] [facility] CenterLACTATE DEHYDROGENASE (LDH), BODY [id number] 09:30:45 Test Item Value Reference Range Interpretation Comments LACTATE DEHYDROGENASE FLUID (BEAKER) 63 U/L (test code = 634) Absence of reference range indicates that normals have not been defined.Assay performance has not been validated for this type of specimen.Equity Trader ID - [id number], body [id number] 09:28:09 Test Item Value Reference Range Interpretation Comments Protein, Fluid (test 1.0 g/dL code = 2881-1) ANGE (test code = Absence of reference ANGE) range indicates that normals have not been defined.Assay performance has not been validated for this type of specimen. Equity Trader ID - [id number] [facility] CenterPROTEIN, BODY [id number] 09:28:09 Test Item Value Reference Range Interpretation Comments PROTEIN FLUID (BEAKER) (test code = 1.0 g/dL 579) Absence of reference range indicates that normals have not been defined.Assay performance has not been validated for this type of specimen.Equity Trader ID - [id number], BODY [id number] 09:28:02 Test Item Value Reference Range Interpretation Comments PROTEIN FLUID (BEAKER) (test code = 1.0 g/dL 579) Absence of reference range indicates that normals have not been defined.Assay performance has not been validated for this type of specimen.Equity Trader ID - [id number] METABOLIC [id number] 06:23:48 Test Item Value Reference Range Interpretation [...] not appl icable for dialysis patien ts Equity Trader ID - JEANETH [id number] 06:11:11 Test Item Value Reference Range Interpretation Comments MAGNESIUM (BEAKER) (test code = 1.7 mg/dL 1.6-2.6 627) Equity Trader ID Verenice ERIC [facility] W/PLT COUNT & AUTO [id number] 05:58:24 Test Item Value Reference Range Interpretation [...] PERCENT (BEAKER) (test code = 2801) Prepare [id number] 23:54:00 Test Item Value Reference Range Interpretation Comments CROSSMATCH (test code = 2264) COMPATIBLE Unit ABO (test code = A Pos 4412833) UNIT NUMBER (test code = [id number] 934-0) Status (test code = 1917980) TX_TIMEINCHART Blood Bank Product (test code RED BLOOD CELLS = 2263) PRODUCT CODE (test code = N4564I71 933-2) [facility] [id number] 16:16:34 Test Item Value Reference Range Interpretation [...] = 2873) Body fluid cell count with [id number] 16:13:08 Test Item Value Reference Range Interpretation Comments Appearance (test code Hazy Clear A = 9335-1) Color (test code = Bladen Colorless, Straw A 6824-7) RBCs (test code = 51622 See_Comment H [Automate d 39566-0) message] The system which generated this result transmit lavon reference range : <=1 /cu mm. The reference range was not used to interpret this result as normal/abnormal . Adjusted WBC Count 121 See_Comment H [Automat ed (test code = 95208-8) messag e] The system which generated this result transmit lavon reference range : <=5 /cu mm. The reference range was not used to interpret this result as normal/abnormal . Lining Cells (test 0 See_Comment [Automat ed code = 10433-4) message] The system which generated this result transmit lavon reference range : <=1 /cu mm. The reference range was not used to interpret this result as normal/abnormal . % Segs (test code = 17 % 09962-3) % Lymphs (test code = 68 % 23300-8) % Monos (test code = 15 % 14428-0) % Eos (test code = 0 % 86095-3) % Baso (test code = 0 % 51782-3) Container Body Fluid Sterile Vial (test code = 2873) Lab Interpretation Abnormal (test code = 81911-0) [facility] WITH [id number] 16:13:08 Test Item Value Reference Range Interpretation Comments APPEARANCE FLUID Hazy Clear A (BEAKER) (test code = 510) COLOR FLUID (BEAKER) Bladen Colorless, Straw A (test code = 511) RBC FLUID (BEAKER) 68505 /cu mm See_Comment H [Automat ed message] [...] Vial (BEAKER) (test code = 2873) PROTEIN, [id number] 14:19:38 Test Item Value Reference Range Interpretation Comments TOTAL PROTEIN (BEAKER) (test code = 6.2 gm/dL 6.0-8.3 770) Equity Trader ID - LETALACTATE DEHYDROGENASE (LDH)2022-09-21 14:19:38 Test Item Value Reference Range Interpretation Comments LACTATE DEHYDROGENASE (BEAKER) (test 460 U/L 125-220 H code = 635) Equity Trader ID - LETARAD, CHEST, 1 VIEW, NON [id number] 13:35:00Reason for exam:->SobShould this be performed at the bedside?->Yes [facility] : 1935 Sex: FFINAL [...] Richards Verified Date/Time: 09/21/2022 13:35:47 Reading Location: [address] Reading Room HIGH SENSITIVITY TROPONIN [id number] 12:53:16 Test Item Value Reference Range Interpretation Comments HIGH SENSITIVITY 672 pg/ml See_Comment HH [Automated message] TROPONIN I (test code The sy stem which = 8138152) generated this result transmitted ref erence range: <=17. Th e reference range was not used to int erpret this result as normal/abnormal . Equity Trader ID - MITCHThe CHIEF NURSE ANESTHETIST STAT High Sensitivity Troponin-I results should be used in conjunction with other diagnostic information such as ECG, clinical observations and information, and patientsymptoms to aid in the diagnosis of [place]. BASIC METABOLIC [id number] 12:38:44 Test Item Value Reference Range Interpretation [...] not appl icable for dialysis patien ts Equity Trader ID - LETASpecimen slightly ictericCBC W/PLT COUNT & AUTO [id number] 11:51:57 Test Item Value Reference Range Interpretation [...] (BEAKER) (test code = 2801) Blood gas, [id number] 11:45:06 Test Item Value Reference Range Interpretation Comments pH, Arterial (test code 7.49 7.35-7.45 H = 2744-1) pCO2, Arterial (test 35 See_Comment [Autom ated message] code = 2019-8) The system [employer] generated this result transmit lavon reference range : 35 - 45 mm Hg. The reference range was not used to interpret this result as normal/abnormal . pO2, Arterial (test 133 See_Comment H [Automa lavon message] code = 2703-7) The system [employer] generated this result transmit lavon reference range [...] 60 Lab Interpretation Abnormal (test code = 50470-8) [facility] [id number] 11:45:06 Test Item Value Reference Range Interpretation Comments pH, Arterial (test code 7.49 7.35-7.45 H = 2744-1) pCO2, Arterial (test 35 See_Comment [Autom ated message] code = 2019) The system [employer] generated this result transmit lavon reference range : 35 - 45 mm Hg. The reference range was not used to interpret this result as normal/abnormal . pO2, Arterial (test 133 See_Comment H [Automa lavon message] code = 2703-7) The system [employer] generated this result transmit lavon reference range [...] 60 Lab Interpretation Abnormal (test code = 76964-2) [facility] gas, [id number] 11:45:06 Test Item Value Reference Range Interpretation Comments pH, Arterial (test code 7.49 7.35-7.45 H = 2744-1) pCO2, Arterial (test 35 See_Comment [Autom ated message] code = 2019-) The system [facility] generated this result transmit lavno reference range : 35 - 45 mm Hg. The reference range was not used to interpret this result as normal/abnormal . pO2, Arterial (test 133 See_Comment H [Automa lavon message] code = 2703-7) The system [employer] generated this result transmit lavon reference range [...] 60 Lab Interpretation Abnormal (test code = 38580-7) [facility] gas, [id number] 11:45:06 Test Item Value Reference Range Interpretation Comments pH, Arterial (test code 7.49 7.35-7.45 H = 2744-1) pCO2, Arterial (test 35 See_Comment [Autom ated message] code = 2018-) The system [employer] generated this result transmit lavon reference range : 35 - 45 mm Hg. The reference range was not used to interpret this result as normal/abnormal . pO2, Arterial (test 133 See_Comment H [Automa lavon message] code = 2703-7) The system [employer] generated this result transmit lavon reference range [...] 60 Lab Interpretation Abnormal (test code = 48489-5) [facility] gas, [id number] 11:45:06 Test Item Value Reference Range Interpretation Comments pH, Arterial (test code 7.49 7.35-7.45 H = 2744-1) pCO2, Arterial (test 35 See_Comment [Autom ated message] code = 2019-) The system [employer] generated this result transmit lavon reference range : 35 - 45 mm Hg. The reference range was not used to interpret this result as normal/abnormal . pO2, Arterial (test 133 See_Comment H [Automa lavon message] code = 2703-7) The system [employer] generated this result transmit lavon reference range [...] 60 Lab Interpretation Abnormal (test code = 28128-2) [facility] gas, [id number] 11:45:06 Test Item Value Reference Range Interpretation Comments pH, Arterial (test code 7.49 7.35-7.45 H = 2744-1) pCO2, Arterial (test 35 See_Comment [Autom ated message] code = 2018-) The system [employer] generated this result transmit lavon reference range : 35 - 45 mm Hg. The reference range was not used to interpret this result as normal/abnormal . pO2, Arterial (test 133 See_Comment H [Automa lavon message] code = 2703-7) The system [employer] generated this result transmit lavon reference range [...] 60 Lab Interpretation Abnormal (test code = 71922-6) [facility] [id number] 11:45:06 Test Item Value Reference Range Interpretation Comments pH, Arterial (test code 7.49 7.35-7.45 H = 2744-1) pCO2, Arterial (test 35 See_Comment [Autom ated message] code = 2019-06) The system [employer] generated this result transmit lavon reference range : 35 - 45 mm Hg. The reference range was not used to interpret this result as normal/abnormal . pO2, Arterial (test 133 See_Comment H [Automa lavon message] code = 2703-7) The system [employer] generated this result transmit lavon reference range [...] 60 Lab Interpretation Abnormal (test code = 38368-3) [facility] gas, [id number] 11:45:06 Test Item Value Reference Range Interpretation Comments pH, Arterial (test code 7.49 7.35-7.45 H = 2744-1) pCO2, Arterial (test 35 See_Comment [Autom ated message] code = 2019-06) The system [employer] generated this result transmit lavon reference range : 35 - 45 mm Hg. The reference range was not used to interpret this result as normal/abnormal . pO2, Arterial (test 133 See_Comment H [Automa lavon message] code = 2703-7) The system [employer] generated this result transmit lavon reference range [...] 60 Lab Interpretation Abnormal (test code = 65852-7) [facility], [id number] 11:45:06 Test Item Value Reference Range Interpretation Comments pH, Arterial (test code 7.49 7.35-7.45 H = 2744-1) pCO2, Arterial (test 35 See_Comment [Autom ated message] code = 2019) The system [employer] generated this result transmit lavon reference range : 35 - 45 mm Hg. The reference range was not used to interpret this result as normal/abnormal . pO2, Arterial (test 133 See_Comment H [Automa lavon message] code = 2703-7) The system [employer] generated this result transmit lavon reference range [...] 60 Lab Interpretation Abnormal (test code = 96355-3) [facility] [id number] 11:45:06 Test Item Value Reference Range Interpretation Comments pH, Arterial (test code 7.49 7.35-7.45 H = 2744-1) pCO2, Arterial (test 35 See_Comment [Autom ated message] code = 2019-8) The system [employer] generated this result transmit lavon reference range : 35 - 45 mm Hg. The reference range was not used to interpret this result as normal/abnormal . pO2, Arterial (test 133 See_Comment H [Automa lavon message] code = 2703-7) The system [facility] generated this result transmit lavon reference [...] 60 Lab Interpretation Abnormal (test code = 67515-2) [facility], [id number] 11:45:06 Test Item Value Reference Range Interpretation [...] (test code = 1819) 60.0 BASIC METABOLIC [id number] 06:07:42 Test Item Value Reference Range Interpretation [...] not appl icable for dialysis patien ts Equity Trader ID - ADMINSpecimen slightly ictericCBC W/PLT COUNT & AUTO [id number] 04:50:05 Test Item Value Reference Range Interpretation [...] (test code = 2801) HIGH SENSITIVITY TROPONIN [id number] 17:55:26 Test Item Value Reference Range Interpretation Comments HIGH SENSITIVITY 941 pg/ml See_Comment HH [Automated message] TROPONIN I (test code The sy stem which = 7900005) generated this result transmitted ref erence range: <=17. Th e reference range was not used to int erpret this result as normal/abnormal . Equity Trader ID - ADMINThe CHIEF NURSE ANESTHETIST STAT High Sensitivity Troponin-I results should be used in conjunction with other diagnostic information such as ECG, clinical observations and information, and patientsymptoms to aid in the diagnosis of [place]. [id number] 14:38:16 Test Item Value Reference Range Interpretation Comments FERRITIN (BEAKER) (test code = 158.50 ng/mL 5.00-275.00 361) [employer] Trader ID - ADMINHIGH SENSITIVITY TROPONIN [id number] 12:29:24 Test Item Value Reference Range Interpretation Comments HIGH SENSITIVITY 1054 pg/ml See_Comment HH [Automated message] TROPONIN I (test code The sy stem which = 9873749) generated this result transmitted ref erence range: <=17. Th e reference range was not used to int erpret this result as normal/abnormal . Equity Trader ID - AMANDA DThe CHIEF NURSE ANESTHETIST STAT High Sensitivity Troponin-I results should be used in conjunction with other diagnostic information such as ECG, clinical observations and information, and patient symptoms to aid in the diagnosis of [place].IRON, TIBC, % SAT. (WITHOUT FERRITIN)2022-09-20 12:27:11 Test Item Value Reference Range Interpretation Comments IRON (BEAKER) (test code = 547) 48.0 ug/dL 40.0-160.0 TOTAL IRON BINDING CAPACITY 299 ug/dL 250-450 (BEAKER) (test code = 769) IRON % SATURATION (2) (BEAKER) 16 % 20-55 L (test code = 2590) Equity Trader ID Verenice PATEL [id number] 12:26:14 Test Item Value Reference Range Interpretation Comments MAGNESIUM (BEAKER) (test code = 1.9 mg/dL 1.6-2.6 627) Equity Trader ID Verenice PATEL DBASIC METABOLIC [id number] 12:26:14 Test Item Value Reference Range Interpretation [...] not appl icable for dialysis patien ts Equity Trader ID - AMANDA [place] slightly ictericLIPID [id number] 12:26:14 Test Item Value Reference Range Interpretation [...] Borderline 130-159 High 160-189 Very High >=190 Equity Trader ID - AMANDA [place] slightly ictericCBC W/PLT [...] code = 2801) ECHO W CONTRAST & [id number] 11:00:03Ejection FractionSLEH ECHO HEARTLAB MKCKESSON [facility] W CONTRAST & DOPPLER 2022-09-20 11:00:03Ejection FractionSLEH ECHO HEARTLAB MKCKESSON [facility] W CONTRAST & [id number] 11:00:03Ejection FractionSLEH ECHO HEARTLAB MKCKESSON [facility] W CONTRAST & [id number] 11:00:03Ejection FractionSLEH ECHO HEARTLAB MKCKESSON [facility] W CONTRAST & DOPPLER 2022-09-20 11:00:03Ejection FractionSLEH ECHO HEARTLAB MKCKESSON [facility] W CONTRAST & [id number] 11:00:03[facility]jection [facility]ractionSLEH [facility] [id number] 11:00:03Ejection FractionSLEH ECHO HEARTLAB MKCKESSON [facility] W CONTRAST & DOPPLER 2022-09-20 11:00:03Ejection FractionSLEH ECHO HEARTLAB MKCKESSON [facility] W CONTRAST & [id number] 11:00:03Ejection FractionSLEH ECHO HEARTLAB MKCKESSON [facility] W CONTRAST & [id number] 11:00:03Ejection FractionSLEH ECHO HEARTLAB [facility] [id number] 10:48:05 Test Item Value Reference Range Interpretation [...] 5.7- 6.4% indicates increased risk for diabetes (prediabetes)."Equity Trader ID - ADMOperator ID - ADMUrinalysis w/ [id number] 08:20:59 Test Item Value Reference Range Interpretation Comments Color, UA (test code Yellow = 5778-6) Clarity, UA (test Slightly Cloudy code = 5767-9) Specific [place], UA 1.020 1.001-1.035 (test code = 5811-5) pH, UA (test code = 6.5 5.0-8.0 5803-2) Protein, UA (test 10 mg/dL Negative A code = 95496-1) Glucose, UA (test Negative Negative code = 365) Ketones, UA (test Negative Negative code = 2514-8) Bilirubin, UA (test Negative Negative code = 20122-7) Blood, UA (test code Large Negative A = 09053-8) Nitrite, UA (test Negative Negative code = 5802-4) Leukocytes, UA (test Large Negative A code = 5799-2) Urobilinogen, UA 0.2 0.2-1.0 (test code = 94346-4) RBC, UA (test code = >182 See_Comment [Autom ated 87636-7) message] The system which generated this result [...] 8 See_Comment [Automate d (test code = 16307-1) messag e] The system which generated this result transmit lavon reference range : /LPF. The reference range was not used to interpret this result as normal/abnormal . Specimen Source (test Urine, Clean code = 2795) Catch ANGE (test code = ANEG) Equity Trader ID - [auto]Equity Trader ID - tech Lab Interpretation Abnormal (test code = 95925-0) [facility]/ [id number] 08:20:59 Test Item Value Reference Range Interpretation Comments Color, UA (test code Yellow = 5778-6) Clarity, UA (test Slightly Cloudy code = 5767-9) Specific [place], UA 1.020 1.001-1.035 (test code = 5811-5) pH, UA (test code = 6.5 5.0-8.0 5803-2) Protein, UA (test 10 mg/dL Negative A code = 03588-0) Glucose, UA (test Negative Negative code = 365) Ketones, UA (test Negative Negative code = 2514-8) Bilirubin, UA (test Negative Negative code = 59252-8) Blood, UA (test code Large Negative A = 94312-4) Nitrite, UA (test Negative Negative code = 5802-4) Leukocytes, UA (test Large Negative A code = 5799-2) Urobilinogen, UA 0.2 0.2-1.0 (test code = 90536-6) RBC, UA (test code = >182 See_Comment [Autom ated 46558-7) message] The system which generated this result [...] 8 See_Comment [Automate d (test code = 24277-5) messag e] The system which generated this result transmit lavon reference range : /LPF. The reference range was not used to interpret this result as normal/abnormal . Specimen Source (test Urine, Clean code = 2795) Catch ANGE (test code = ANGE) Equity Trader ID - [auto]Equity Trader ID - tech Lab Interpretation Abnormal (test code = 28510-5) [facility]/ [id number] 08:20:59 Test Item Value Reference Range Interpretation Comments Color, UA (test code Yellow = 5778-6) Clarity, UA (test Slightly Cloudy code = 5767-9) Specific [place], UA 1.020 1.001-1.035 (test code = 5811-5) pH, UA (test code = 6.5 5.0-8.0 5803-2) Protein, UA (test 10 mg/dL Negative A code = 10675-8) Glucose, UA (test Negative Negative code = 365) Ketones, UA (test Negative Negative code = 2514-8) Bilirubin, UA (test Negative Negative code = 98913-1) Blood, UA (test code Large Negative A = 15856-7) Nitrite, UA (test Negative Negative code = 5802-4) Leukocytes, UA (test Large Negative A code = 5799-2) Urobilinogen, UA 0.2 0.2-1.0 (test code = 77213-4) RBC, UA (test code = >182 See_Comment [Autom ated 74433-4) message] The system which generated this result [...] 8 See_Comment [Automate d (test code = 81491-5) messag e] The system which generated this result transmit lavon reference range : /LPF. The reference range was not used to interpret this result as normal/abnormal . Specimen Source (test Urine, Clean code = 2795) Catch ANGE (test code = ANGE) Equity Trader ID - [auto]Equity Trader ID - tech Lab Interpretation Abnormal (test code = 06631-7) [facility]/ [id number] 08:20:59 Test Item Value Reference Range Interpretation Comments Color, UA (test code Yellow = 5778-6) Clarity, UA (test Slightly Cloudy code = 5767-9) Specific [place], UA 1.020 1.001-1.035 (test code = 5811-5) pH, UA (test code = 6.5 5.0-8.0 5803-2) Protein, UA (test 10 mg/dL Negative A code = 98703-6) Glucose, UA (test Negative Negative code = 365) Ketones, UA (test Negative Negative code = 2514-8) Bilirubin, UA (test Negative Negative code = 82770-9) Blood, UA (test code Large Negative A = 64820-9) Nitrite, UA (test Negative Negative code = 5802-4) Leukocytes, UA (test Large Negative A code = 5799-2) Urobilinogen, UA 0.2 0.2-1.0 (test code = 91768-7) RBC, UA (test code = >182 See_Comment [Autom ated 14839-0) message] The system which generated this result [...] 8 See_Comment [Automate d (test code = 12348-9) messag e] The system which generated this result transmit lavon reference range : /LPF. The reference range was not used to interpret this result as normal/abnormal . Specimen Source (test Urine, Clean code = 2795) Catch ANGE (test code = ANGE) Equity Trader ID - [auto]Equity Trader ID - tech Lab Interpretation Abnormal (test code = 09676-8) [facility]/ [id number] 08:20:59 Test Item Value Reference Range Interpretation Comments Color, UA (test code Yellow = 5778-6) Clarity, UA (test Slightly Cloudy code = 5767-9) Specific [place], UA 1.020 1.001-1.035 (test code = 5811-5) pH, UA (test code = 6.5 5.0-8.0 5803-2) Protein, UA (test 10 mg/dL Negative A code = 56806-6) Glucose, UA (test Negative Negative code = 365) Ketones, UA (test Negative Negative code = 2514-8) Bilirubin, UA (test Negative Negative code = 50040-7) Blood, UA (test code Large Negative A = 48429-3) Nitrite, UA (test Negative Negative code = 5802-4) Leukocytes, UA (test Large Negative A code = 5799-2) Urobilinogen, UA 0.2 0.2-1.0 (test code = 15962-4) RBC, UA (test code = >182 See_Comment [Autom ated 45247-6) message] The system which generated this result [...] 8 See_Comment [Automate d (test code = 47638-6) messag e] The system which generated this result transmit lavon reference range : /LPF. The reference range was not used to interpret this result as normal/abnormal . Specimen Source (test Urine, Clean code = 2795) Catch ANGE (test code = ANGE) Equity Trader ID - [auto]Equity Trader ID - tech Lab Interpretation Abnormal (test code = 11020-4) [facility]/ [id number] 08:20:59 Test Item Value Reference Range Interpretation Comments Color, UA (test code Yellow = 5778-6) Clarity, UA (test Slightly Cloudy code = 5767-9) Specific [place], UA 1.020 1.001-1.035 (test code = 5811-5) pH, UA (test code = 6.5 5.0-8.0 5803-2) Protein, UA (test 10 mg/dL Negative A code = 55254-7) Glucose, UA (test Negative Negative code = 365) Ketones, UA (test Negative Negative code = 2514-8) Bilirubin, UA (test Negative Negative code = 85346-9) Blood, UA (test code Large Negative A = 19995-9) Nitrite, UA (test Negative Negative code = 5802-4) Leukocytes, UA (test Large Negative A code = 5799-2) Urobilinogen, UA 0.2 0.2-1.0 (test code = 66008-5) RBC, UA (test code = >182 See_Comment [Autom ated 17336-3) message] The system which generated this result [...] 8 See_Comment [Automate d (test code = 21079-8) messag e] The system which generated this result transmit lavon reference range : /LPF. The reference range was not used to interpret this result as normal/abnormal . Specimen Source (test Urine, Clean code = 2795) Catch ANGE (test code = ANGE) Equity Trader ID - [auto]Equity Trader ID - tech Lab Interpretation Abnormal (test code = 22673-9) [facility]/ Gzpijctzqms5193-20-70 08:20:59 Test Item Value Reference Range Interpretation Comments Color, UA (test code Yellow = 5778-6) Clarity, UA (test Slightly Cloudy code = 5767-9) Specific [place], UA 1.020 1.001-1.035 (test code = 5811-5) pH, UA (test code = 6.5 5.0-8.0 5803-2) Protein, UA (test 10 mg/dL Negative A code = 00043-0) Glucose, UA (test Negative Negative code = 365) Ketones, UA (test Negative Negative code = 2514-8) Bilirubin, UA (test Negative Negative code = 87324-1) Blood, UA (test code Large Negative A = 24721-8) Nitrite, UA (test Negative Negative code = 5802-4) Leukocytes, UA (test Large Negative A code = 5799-2) Urobilinogen, UA 0.2 0.2-1.0 (test code = 20033-9) RBC, UA (test code = >182 See_Comment [Autom ated 18772-9) message] The system which generated this result [...] 8 See_Comment [Automate d (test code = 68425-0) messag e] The system which generated this result transmit lavon reference range : /LPF. The reference range was not used to interpret this result as normal/abnormal . Specimen Source (test Urine, Clean code = 2795) Catch ANGE (test code = ANGE) Equity Trader ID - [auto]Equity Trader ID - tech Lab Interpretation Abnormal (test code = 06607-4) [facility]/ [id number] 08:20:59 Test Item Value Reference Range Interpretation Comments Color, UA (test code Yellow = 5778-6) Clarity, UA (test Slightly Cloudy code = 5767-9) Specific [place], UA 1.020 1.001-1.035 (test code = 5811-5) pH, UA (test code = 6.5 5.0-8.0 5803-2) Protein, UA (test 10 mg/dL Negative A code = 28837-2) Glucose, UA (test Negative Negative code = 365) Ketones, UA (test Negative Negative code = 2514-8) Bilirubin, UA (test Negative Negative code = 05124-3) Blood, UA (test code Large Negative A = 20622-0) Nitrite, UA (test Negative Negative code = 5802-4) Leukocytes, UA (test Large Negative A code = 5799-2) Urobilinogen, UA 0.2 0.2-1.0 (test code = 70913-7) RBC, UA (test code = >182 See_Comment [Autom ated 04981-2) message] The system which generated this result [...] 8 See_Comment [Automate d (test code = 69179-7) messag e] The system which generated this result transmit lavon reference range : /LPF. The reference range was not used to interpret this result as normal/abnormal . Specimen Source (test Urine, Clean code = 2795) Catch ANGE (test code = ANGE) Equity Trader ID - [auto]Equity Trader ID - tech Lab Interpretation Abnormal (test code = 29535-6) [facility]/ [id number] 08:20:59 Test Item Value Reference Range Interpretation Comments Color, UA (test code Yellow = 5778-6) Clarity, UA (test Slightly Cloudy code = 5767-9) Specific [place], UA 1.020 1.001-1.035 (test code = 5811-5) pH, UA (test code = 6.5 5.0-8.0 5803-2) Protein, UA (test 10 mg/dL Negative A code = 85234-1) Glucose, UA (test Negative Negative code = 365) Ketones, UA (test Negative Negative code = 2514-8) Bilirubin, UA (test Negative Negative code = 32656-2) Blood, UA (test code Large Negative A = 56691-9) Nitrite, UA (test Negative Negative code = 5802-4) Leukocytes, UA (test Large Negative A code = 5799-2) Urobilinogen, UA 0.2 0.2-1.0 (test code = 99631-9) RBC, UA (test code = >182 See_Comment [Autom ated 52125-7) message] The system which generated this result [...] 8 See_Comment [Automate d (test code = 46475-0) messag e] The system which generated this result transmit lavon reference range : /LPF. The reference range was not used to interpret this result as normal/abnormal . Specimen Source (test Urine, Clean code = 2795) Catch ANGE (test code = ANGE) Equity Trader ID - [auto]Equity Trader ID - tech Lab Interpretation Abnormal (test code = 74282-1) [facility]/ Fkshwltggfl3502-22-37 08:20:59 Test Item Value Reference Range Interpretation Comments Color, UA (test code Yellow = 5778-6) Clarity, UA (test Slightly Cloudy code = 5767-9) Specific [place], UA 1.020 1.001-1.035 (test code = 5811-5) pH, UA (test code = 6.5 5.0-8.0 5803-2) Protein, UA (test 10 mg/dL Negative A code = 54569-2) Glucose, UA (test Negative Negative code = 365) Ketones, UA (test Negative Negative code = 2514-8) Bilirubin, UA (test Negative Negative code = 37363-4) Blood, UA (test code Large Negative A = 63228-2) Nitrite, UA (test Negative Negative code = 5802-4) Leukocytes, UA (test Large Negative A code = 5799-2) Urobilinogen, UA 0.2 0.2-1.0 (test code = 55966-5) RBC, UA (test code = >182 See_Comment [Autom ated 95321-0) message] The system which generated this result [...] 8 See_Comment [Automate d (test code = 04423-4) messag e] The system which generated this result transmit lavon reference range : /LPF. The reference range was not used to interpret this result as normal/abnormal . Specimen Source (test Urine, Clean code = 2795) Catch ANGE (test code = ANGE) Equity Trader ID - [auto]Equity Trader ID - tech Lab Interpretation Abnormal (test code = 05181-9) [facility]/ [id number] 08:20:59 Test Item Value Reference Range Interpretation [...] (test code Urine, Clean Catch = 2795) Equity Trader ID - [auto]Equity Trader ID - techRAD, CHEST, 1 VIEW, NON [id number] 03:36:00Reason for exam:->pleural effusionsShould this be performed at the bedside?->YesYOHAN [facility]Name[facility]LO[facility] : 1935 [...] Verified Date/Time: 09/20/2022 03:36:43 HIGH SENSITIVITY TROPONIN [id number] 22:45:53 Test Item Value Reference Range Interpretation Comments HIGH SENSITIVITY 1563 pg/ml See_Comment HH [Automated message] TROPONIN I (test code The sy stem which = [id number]) generated this result transmitted ref erence range: <=17. Th e reference range was not used to int erpret this result as normal/abnormal . Equity Trader ID - BSThe CHIEF NURSE ANESTHETIST STAT High Sensitivity Troponin-I results should be used in conjunctionwith other diagnostic information such as ECG, clinical observations and information, and patient symptoms to aid in the diagnosis of [place].B-TYPE NATRIURETIC FACTOR (BNP)2022-09-19 22:44:11 Test Item Value Reference Range Interpretation Comments B-TYPE NATRIURETIC PEPTIDE 1572 pg/mL 0-100 H (BEAKER) (test code = 700) Equity Trader ID - BSCOMPREHENSIVE METABOLIC [id number] 22:37:49 Test Item Value Reference Range Interpretation [...] not appl icable for dialysis patien ts Equity Trader ID - BSLACTIC ACID, [id number] 22:28:48 Test Item Value Reference Range Interpretation Comments LACTATE BLOOD VENOUS (2) (BEAKER) 1.19 mmol/L 0.50-2.20 (test code = 7452) Equity Trader ID - BSCBC W/PLT COUNT & AUTO [id number] 22:22:58 Test Item Value Reference Range Interpretation [...] PERCENT (BEAKER) (test code = 2801) Prepare [id number] 23:54:00 Test Item Value Reference Range Interpretation Comments Unit ABO (test code = O Pos [id number]) UNIT NUMBER (test code = X418377640764 934-0) Status (test code = 8701350) TX_TIMEINCHART Blood Bank Product (test code RED BLOOD CELLS = 2263) PRODUCT CODE (test code = Z1866Q70 933-2) CROSSMATCH (test code = 2264) [facility] [id number] 23:54:00 Test Item Value Reference Range Interpretation Comments Unit ABO (test code = O Pos 1304211) UNIT NUMBER (test code = [id number] 934-0) Status (test code = 8910223) TX_TIMEINCHART Blood Bank Product (test code RED BLOOD CELLS = 2263) PRODUCT CODE (test code = [id number] 933-2) CROSSMATCH (test code = 2264) COMPATIBLE [facility] CenterANG, CV ACCESS, [id number] 07:43:00 [facility] 1935 Sex: FFINAL REPORT [...] the patient's medical record by the nurse. [employer] Exchange Administrator: Lemuel Montilla MD [place] Closer: None. Approach: Right internal jugular vein Estimated [...] needle into the right atrium. A 4 Cymro micropuncture sheath was placed and a 0.035 wire was advanced into the IVC. A subcutaneous tunnel and pocket were created in the right anterior chest wall by blunt dissection. The pocket was flushed with antibiotic solution. A 6 Cymro Bard single lumen power injectable port was [...] MDReport Verified Date/Time: 08/26/2022 07:43:31 Reading Location: [place] [address] Angio Body Reading Room ANG, TUNNEL CATH CENTRAL INS W/PORT [id number] 07:43:00 [facility] : 1935 Sex: FFINAL [...] the patient's medical record by the nurse. [employer] Exchange Administrator: Lemuel Montilla MD [place] Closer: None. Approach: Right internal jugular vein Estimated [...] needle into the right atrium. A 4 Cymro micropuncture sheath was placed and a 0.035 wire was advanced into the IVC. A subcutaneous tunnel and pocket were created in the right anterior chest wall by blunt dissection. The pocket was flushed with antibiotic solution. A 6 Cymro Bard single lumen power injectable port was [...] MDReport Verified Date/Time: 08/26/2022 07:43:31 Reading Location: [facility] B1 P048 Angio Body Reading Room H, U/S GUIDANCE FOR VASCULAR [id number] 07:43:00 [facility] : 1935 Sex: FFINAL REPORT [...] the patient's medical record by the nurse. [employer] Exchange Administrator: Lemuel Montilla MD [place] Closer: None. Approach: Right internal jugular vein Estimated [...] needle into the right atrium. A 4 Cymro micropuncture sheath was placed and a 0.035 wire was advanced into the IVC. A subcutaneous tunnel and pocket were created in the right anterior chest wall by blunt dissection. The pocket was flushed with antibiotic solution. A 6 Cymro Bard single lumen power injectable port was [...] ready for immediate use. Signed: Lemuel Montilla MDRthe [facility] [place] Verified Date/Time: 08/26/2022 07:43:31 Reading Location: [place] [address] Angio Body Reading Room U/S, [id number] 17:37:00 Malignant pleural effusion- needs right sided pleural effusion drainedNO CYTOLOGY NEEDED!Release to patient->ImmediateWhich [facility] radiology location is preferred?->[place] : 1935 Sex: FFINAL REPORT Ultrasound guided right thoracentesis. Clinical History: Right pleural effusion. Modality: Ultrasound. Sedation: None. [employer] Exchange Administrator: Arin Landry PA-C [place] Closer: None. Estimated Blood Loss: 1cc Specimen: 800 [...] MDReport Verified Date/Time: 08/18/2022 17:37:10 Reading Location: [address] Ultrasound Reading Room RAD, CHEST, 1 VIEW, NON [id number] 12:40:00Reason for exam:->s/p right thoraShould this be performed at the bedside?->YesIn [place] [facility] KE[facility]LO[facility]O : 1935 Sex: FFINAL [...] Richards MDReportVerified Date/Time: 08/18/2022 12:40:12 Reading Location: [address] Reading Room PROTHROMBIN TIME/[id number] 10:35:53 Test Item Value Reference Range Interpretation Comments PROTIME (BEAKER) 15.2 seconds 11.9-14.2 H (test code = 759) INR (BEAKER) (test 1.22 See_Comment [Automat ed message] code = 370) The system [employer] generated this result transmitted ref erence range: <=5.90. The reference range was not used to int erpret this result as normal/abnormal . RECOMMENDED COUMADIN/WARFARIN INR THERAPY RANGESSTANDARD DOSE: 2.0 - 3.0 Includes: PROPHYLAXIS for venous thrombosis, systemic embolization; TREATMENT for venous thrombosis and/or pulmonary embolus.HIGH RISK: Target INR is 2.5-3.5 for patients with mechanical heart valves.CBC W/PLT COUNT & AUTO [id number] 10:18:44 Test Item Value Reference Range Interpretation [...] PERCENT (BEAKER) (test code = 2801) CT, [id number] 09:21:00Unlisted Reason for Exam - Click Yes and Enter Reason Below->YesUnlisted Reason for Exam->malignant neoplasm of both ovariesIs this for enterography?->NoWill this procedure require oral contras t?->YesCH[facility] : 1935 [...] Craven Verified Date/Time: 08/04/2022 09:21:00 Reading Location: [address] Consult Reading Room CT, CHEST, WITH IV [id number] 09:21:00Unlisted Reason for Exam - Click Yes and Enter Reason Below->YesUnlisted Reason for Exam->malignant neoplasm of both ovaries [facility] : 1935 Sex: FFINAL REPORT [...] Craven Verified Date/Time: 08/04/2022 09:21:00 Reading Location: [facility] [id number] Consult Reading Room [facility] [id number] 12:01:00 Test Item Value Reference Range Interpretation Comments Glucose Lvl (test code = Glucose Lvl) 104 70-99 [facility]2022-07-29 12:01:00 Test Item Value Reference Range Interpretation Comments BUN (test code = BUN) 06-10 [facility]2022-07-29 12:01:00 Test Item Value Reference Range Interpretation Comments Creatinine Lvl (test code = Creatinine 0.98 0.50-1.40 Lvl) [facility]2022-07-29 12:01:00 Test Item Value Reference Range Interpretation Comments Sodium Lvl (test code = Sodium Lvl) 133 135-145 [place] 852652-07-29 12:01:00 Test Item Value Reference Range Interpretation Comments Potassium Lvl (test code = Potassium 2.7 3.5-5.1 Lvl) [facility]2022-07-29 12:01:00 Test Item Value Reference Range Interpretation Comments Chloride Lvl (test code = Chloride Lvl) 91 95-109 [place] 852652-07-29 12:01:00 Test Item Value Reference Range Interpretation Comments CO2 (test code = CO2) 33 24-32 [facility]2022-07-29 12:01:00 Test Item Value Reference Range Interpretation Comments AGAP (test code = AGAP) 11.7 10.0-20.0 [facility]2022-07-29 12:01:00 Test Item Value Reference Range Interpretation Comments Calcium Lvl (test code = Calcium Lvl) 7.9 8.5-10.5 [facility]2022-07-29 12:01:00 Test Item Value Reference Range Interpretation Comments eGFR (test code = eGFR) 56 [facility]2022-07-29 12:01:00 Test Item Value Reference Range Interpretation Comments Magnesium Lvl (test code = Magnesium 1.7 1.8-2.4 Lvl) [facility]2022-07-29 12:01:00 Test Item Value Reference Range Interpretation Comments Glucose Lvl (test code = Glucose Lvl) 104 70-99 [place] 852652-07-29 12:01:00 Test Item Value Reference Range Interpretation Comments BUN (test code = BUN) 06-10 [facility]2022-07-29 12:01:00 Test Item Value Reference Range Interpretation Comments Creatinine Lvl (test code = Creatinine 0.98 0.50-1.40 Lvl) [place] 852652-07-29 12:01:00 Test Item Value Reference Range Interpretation Comments Sodium Lvl (test code = Sodium Lvl) 133 135-145 [place] 852652-07-29 12:01:00 Test Item Value Reference Range Interpretation Comments Potassium Lvl (test code = Potassium 2.7 3.5-5.1 Lvl) [place] 852652-07-29 12:01:00 Test Item Value Reference Range Interpretation Comments Chloride Lvl (test code = Chloride Lvl) 91 95-109 [place] 852652-07-29 12:01:00 Test Item Value Reference Range Interpretation Comments CO2 (test code = CO2) 33 24-32 [place] 852652-07-29 12:01:00 Test Item Value Reference Range Interpretation Comments AGAP (test code = AGAP) 11.7 10.0-20.0 [place] 852652-07-29 12:01:00 Test Item Value Reference Range Interpretation Comments Calcium Lvl (test code = Calcium Lvl) 7.9 8.5-10.5 [place] 852652-07-29 12:01:00 Test Item Value Reference Range Interpretation Comments eGFR (test code = eGFR) 56 [place] 852652-07-29 12:01:00 Test Item Value Reference Range Interpretation Comments Magnesium Lvl (test code = Magnesium 1.7 1.8-2.4 Lvl) [place] 852652-07-29 12:01:00 Test Item Value Reference Range Interpretation Comments Glucose Lvl (test code = Glucose Lvl) 104 70-99 [place] 852652-07-29 12:01:00 Test Item Value Reference Range Interpretation Comments BUN (test code = BUN) 29 7-22 [facility]2022-07-29 12:01:00 Test Item Value Reference Range Interpretation Comments Creatinine Lvl (test code = Creatinine 0.98 0.50-1.40 Lvl) [place] 852652-07-29 12:01:00 Test Item Value Reference Range Interpretation Comments Sodium Lvl (test code = Sodium Lvl) 133 135-145 [place] 852652-07-29 12:01:00 Test Item Value Reference Range Interpretation Comments Potassium Lvl (test code = Potassium 2.7 3.5-5.1 Lvl) [place] 852652-07-29 12:01:00 Test Item Value Reference Range Interpretation Comments Chloride Lvl (test code = Chloride Lvl) 91 95-109 [place] 852652-07-29 12:01:00 Test Item Value Reference Range Interpretation Comments CO2 (test code = CO2) 33 24-32 [place] 852652-07-29 12:01:00 Test Item Value Reference Range Interpretation Comments AGAP (test code = AGAP) 11.7 10.0-20.0 [place] [address]2652-07-29 12:01:00 Test Item Value Reference Range Interpretation Comments Calcium Lvl (test code = Calcium Lvl) 7.9 8.5-10.5 [place] 852652-07-29 12:01:00 Test Item Value Reference Range Interpretation Comments eGFR (test code = eGFR) 56 [place] 852652-07-29 12:01:00 Test Item Value Reference Range Interpretation Comments Magnesium Lvl (test code = Magnesium 1.7 1.8-2.4 Lvl) [place] 852652-07-29 12:01:00 Test Item Value Reference Range Interpretation Comments Glucose Lvl (test code = Glucose Lvl) 104 70-99 [facility]2022-07-29 12:01:00 Test Item Value Reference Range Interpretation Comments BUN (test code = BUN) 29 7-22 [place] 852652-07-29 12:01:00 Test Item Value Reference Range Interpretation Comments Creatinine Lvl (test code = Creatinine 0.98 0.50-1.40 Lvl) [place] [address]26[address]-07-29 12:01:00 Test Item Value Reference Range Interpretation Comments Sodium Lvl (test code = Sodium Lvl) 133 135-145 [place] 852652-07-29 12:01:00 Test Item Value Reference Range Interpretation Comments Potassium Lvl (test code = Potassium 2.7 3.5-5.1 Lvl) [place] 852652-07-29 12:01:00 Test Item Value Reference Range Interpretation Comments Chloride Lvl (test code = Chloride Lvl) 91 95-109 [place] 852652-07-29 12:01:00 Test Item Value Reference Range Interpretation Comments CO2 (test code = CO2) 33 24-32 [place] 852652-07-29 12:01:00 Test Item Value Reference Range Interpretation Comments AGAP (test code = AGAP) 11.7 10.0-20.0 [place] 852652-07-29 12:01:00 Test Item Value Reference Range Interpretation Comments Calcium Lvl (test code = Calcium Lvl) 7.9 8.5-10.5 [place] 852652-07-29 12:01:00 Test Item Value Reference Range Interpretation Comments eGFR (test code = eGFR) 56 [place] 852652-07-29 12:01:00 Test Item Value Reference Range Interpretation Comments Magnesium Lvl (test code = Magnesium 1.7 1.8-2.4 Lvl) [facility]2022-07-29 12:01:00 Test Item Value Reference Range Interpretation Comments Glucose Lvl (test code = Glucose Lvl) 104 70-99 [facility]2022-07-29 12:01:00 Test Item Value Reference Range Interpretation Comments BUN (test code = BUN) 29 7-22 [place] 852652-07-29 12:01:00 Test Item Value Reference Range Interpretation Comments Creatinine Lvl (test code = Creatinine 0.98 0.50-1.40 Lvl) [facility]2022-07-29 12:01:00 Test Item Value Reference Range Interpretation Comments Sodium Lvl (test code = Sodium Lvl) 133 135-145 [place] 852652-07-29 12:01:00 Test Item Value Reference Range Interpretation Comments Potassium Lvl (test code = Potassium 2.7 3.5-5.1 Lvl) [place] 852652-07-29 12:01:00 Test Item Value Reference Range Interpretation Comments Chloride Lvl (test code = Chloride Lvl) 91 95-109 [facility]2022-07-29 12:01:00 Test Item Value Reference Range Interpretation Comments CO2 (test code = CO2) 33 24-32 [place] 852652-07-29 12:01:00 Test Item Value Reference Range Interpretation Comments AGAP (test code = AGAP) 11.7 10.0-20.0 [place] 852652-07-29 12:01:00 Test Item Value Reference Range Interpretation Comments Calcium Lvl (test code = Calcium Lvl) 7.9 8.5-10.5 [place] 852652-07-29 12:01:00 Test Item Value Reference Range Interpretation Comments eGFR (test code = eGFR) 56 [place] 852652-07-29 12:01:00 Test Item Value Reference Range Interpretation Comments Magnesium Lvl (test code = Magnesium 1.7 1.8-2.4 Lvl) [place] 852652-07-29 12:01:00 Test Item Value Reference Range Interpretation Comments Glucose Lvl (test code = Glucose Lvl) 104 70-99 [place] 852652-07-29 12:01:00 Test Item Value Reference Range Interpretation Comments BUN (test code = BUN) 29 7-22 [place] 852652-07-29 12:01:00 Test Item Value Reference Range Interpretation Comments Creatinine Lvl (test code = Creatinine 0.98 0.50-1.40 Lvl) [place] 852652-07-29 12:01:00 Test Item Value Reference Range Interpretation Comments Sodium Lvl (test code = Sodium Lvl) 133 135-145 [place] 852652-07-29 12:01:00 Test Item Value Reference Range Interpretation Comments Potassium Lvl (test code = Potassium 2.7 3.5-5.1 Lvl) [place] 852652-07-29 12:01:00 Test Item Value Reference Range Interpretation Comments Chloride Lvl (test code = Chloride Lvl) 91 95-109 [place] 852652-07-29 12:01:00 Test Item Value Reference Range Interpretation Comments CO2 (test code = CO2) 33 24-32 [facility]2022-07-29 12:01:00 Test Item Value Reference Range Interpretation Comments AGAP (test code = AGAP) 11.7 10.0-20.0 [place] 852652-07-29 12:01:00 Test Item Value Reference Range Interpretation Comments Calcium Lvl (test code = Calcium Lvl) 7.9 8.5-10.5 [place] 852652-07-29 12:01:00 Test Item Value Reference Range Interpretation Comments eGFR (test code = eGFR) 56 [place] 852652-07-29 12:01:00 Test Item Value Reference Range Interpretation Comments Magnesium Lvl (test code = Magnesium 1.7 1.8-2.4 Lvl) [place] 852652-07-29 12:01:00 Test Item Value Reference Range Interpretation Comments Glucose Lvl (test code = Glucose Lvl) 104 70-99 [place] 852652-07-29 12:01:00 Test Item Value Reference Range Interpretation Comments BUN (test code = BUN) 29 7-22 [place] 852652-07-29 12:01:00 Test Item Value Reference Range Interpretation Comments Creatinine Lvl (test code = Creatinine 0.98 0.50-1.40 Lvl) [facility]2022-07-29 12:01:00 Test Item Value Reference Range Interpretation Comments Sodium Lvl (test code = Sodium Lvl) 133 135-145 [place] 852652-07-29 12:01:00 Test Item Value Reference Range Interpretation Comments Potassium Lvl (test code = Potassium 2.7 3.5-5.1 Lvl) [facility]2022-07-29 12:01:00 Test Item Value Reference Range Interpretation Comments Chloride Lvl (test code = Chloride Lvl) 91 95-109 [facility]2022-07-29 12:01:00 Test Item Value Reference Range Interpretation Comments CO2 (test code = CO2) 33 24-32 [facility]2022-07-29 12:01:00 Test Item Value Reference Range Interpretation Comments AGAP (test code = AGAP) 11.7 10.0-20.0 [place] 852652-07-29 12:01:00 Test Item Value Reference Range Interpretation Comments Calcium Lvl (test code = Calcium Lvl) 7.9 8.5-10.5 [facility]2022-07-29 12:01:00 Test Item Value Reference Range Interpretation Comments eGFR (test code = eGFR) 56 [place] 852652-07-29 12:01:00 Test Item Value Reference Range Interpretation Comments Magnesium Lvl (test code = Magnesium 1.7 1.8-2.4 Lvl) [place] 852652-07-29 12:01:00 Test Item Value Reference Range Interpretation Comments Glucose Lvl (test code = Glucose Lvl) 104 70-99 [facility]2022-07-29 12:01:00 Test Item Value Reference Range Interpretation Comments BUN (test code = BUN) 06-10 [facility]2022-07-29 12:01:00 Test Item Value Reference Range Interpretation Comments Creatinine Lvl (test code = Creatinine 0.98 0.50-1.40 Lvl) [facility]2022-07-29 12:01:00 Test Item Value Reference Range Interpretation Comments Sodium Lvl (test code = Sodium Lvl) 133 135-145 [facility]2022-07-29 12:01:00 Test Item Value Reference Range Interpretation Comments Potassium Lvl (test code = Potassium 2.7 3.5-5.1 Lvl) [facility]2022-07-29 12:01:00 Test Item Value Reference Range Interpretation Comments Chloride Lvl (test code = Chloride Lvl) 91 95-109 [facility]2022-07-29 12:01:00 Test Item Value Reference Range Interpretation Comments CO2 (test code = CO2) 33 24-32 [facility]2022-07-29 12:01:00 Test Item Value Reference Range Interpretation Comments AGAP (test code = AGAP) 11.7 10.0-20.0 [facility]2022-07-29 12:01:00 Test Item Value Reference Range Interpretation Comments Calcium Lvl (test code = Calcium Lvl) 7.9 8.5-10.5 [facility]2022-07-29 12:01:00 Test Item Value Reference Range Interpretation Comments eGFR (test code = eGFR) 56 [facility]2022-07-29 12:01:00 Test Item Value Reference Range Interpretation Comments Magnesium Lvl (test code = Magnesium 1.7 1.8-2.4 Lvl) [facility]2022-07-29 12:01:00 Test Item Value Reference Range Interpretation Comments Glucose Lvl (test code = Glucose Lvl) 104 70-99 [facility]2022-07-29 12:01:00 Test Item Value Reference Range Interpretation Comments BUN (test code = BUN) 06-10 [facility]2022-07-29 12:01:00 Test Item Value Reference Range Interpretation Comments Creatinine Lvl (test code = Creatinine 0.98 0.50-1.40 Lvl) [place] [address]2652-07-29 12:01:00 Test Item Value Reference Range Interpretation Comments Sodium Lvl (test code = Sodium Lvl) 133 135-145 [place] 852652-07-29 12:01:00 Test Item Value Reference Range Interpretation Comments Potassium Lvl (test code = Potassium 2.7 3.5-5.1 Lvl) [place] 852652-07-29 12:01:00 Test Item Value Reference Range Interpretation Comments Chloride Lvl (test code = Chloride Lvl) 91 95-109 [place] 852652-07-29 12:01:00 Test Item Value Reference Range Interpretation Comments CO2 (test code = CO2) 33 24-32 [place] 852652-07-29 12:01:00 Test Item Value Reference Range Interpretation Comments AGAP (test code = AGAP) 11.7 10.0-20.0 [place] 852652-07-29 12:01:00 Test Item Value Reference Range Interpretation Comments Calcium Lvl (test code = Calcium Lvl) 7.9 8.5-10.5 [place] 852652-07-29 12:01:00 Test Item Value Reference Range Interpretation Comments eGFR (test code = eGFR) 56 [place] 852652-07-29 12:01:00 Test Item Value Reference Range Interpretation Comments Magnesium Lvl (test code = Magnesium 1.7 1.8-2.4 Lvl) [place] 852652-07-29 12:01:00 Test Item Value Reference Range Interpretation Comments Glucose Lvl (test code = Glucose Lvl) 104 70-99 [place] 852652-07-29 12:01:00 Test Item Value Reference Range Interpretation Comments BUN (test code = BUN) 29 7-22 [place] 852652-07-29 12:01:00 Test Item Value Reference Range Interpretation Comments Creatinine Lvl (test code = Creatinine 0.98 0.50-1.40 Lvl) [place] 852652-07-29 12:01:00 Test Item Value Reference Range Interpretation Comments Sodium Lvl (test code = Sodium Lvl) 133 135-145 [place] 852652-07-29 12:01:00 Test Item Value Reference Range Interpretation Comments Potassium Lvl (test code = Potassium 2.7 3.5-5.1 Lvl) [place] 852652-07-29 12:01:00 Test Item Value Reference Range Interpretation Comments Chloride Lvl (test code = Chloride Lvl) 91 95-109 [place] 852652-07-29 12:01:00 Test Item Value Reference Range Interpretation Comments CO2 (test code = CO2) 33 24-32 [place] 852652-07-29 12:01:00 Test Item Value Reference Range Interpretation Comments AGAP (test code = AGAP) 11.7 10.0-20.0 [place] 852652-07-29 12:01:00 Test Item Value Reference Range Interpretation Comments Calcium Lvl (test code = Calcium Lvl) 7.9 8.5-10.5 [place] 852652-07-29 12:01:00 Test Item Value Reference Range Interpretation Comments eGFR (test code = eGFR) 56 [place] 852652-07-29 12:01:00 Test Item Value Reference Range Interpretation Comments Magnesium Lvl (test code = Magnesium 1.7 1.8-2.4 Lvl) [place] 852652-07-29 12:01:00 Test Item Value Reference Range Interpretation Comments Glucose Lvl (test code = Glucose Lvl) 104 70-99 [place] 852652-07-29 12:01:00 Test Item Value Reference Range Interpretation Comments BUN (test code = BUN) 29 7-22 [place] 852652-07-29 12:01:00 Test Item Value Reference Range Interpretation Comments Creatinine Lvl (test code = Creatinine 0.98 0.50-1.40 Lvl) [place] 852652-07-29 12:01:00 Test Item Value Reference Range Interpretation Comments Sodium Lvl (test code = Sodium Lvl) 133 135-145 [place] 852652-07-29 12:01:00 Test Item Value Reference Range Interpretation Comments Potassium Lvl (test code = Potassium 2.7 3.5-5.1 Lvl) [place] 852652-07-29 12:01:00 Test Item Value Reference Range Interpretation Comments Chloride Lvl (test code = Chloride Lvl) 91 95-109 [facility]2022-07-29 12:01:00 Test Item Value Reference Range Interpretation Comments CO2 (test code = CO2) 33 24-32 [facility]2022-07-29 12:01:00 Test Item Value Reference Range Interpretation Comments AGAP (test code = AGAP) 11.7 10.0-20.0 [facility]2022-07-29 12:01:00 Test Item Value Reference Range Interpretation Comments Calcium Lvl (test code = Calcium Lvl) 7.9 8.5-10.5 [facility]2022-07-29 12:01:00 Test Item Value Reference Range Interpretation Comments eGFR (test code = eGFR) 56 [facility]2022-07-29 12:01:00 Test Item Value Reference Range Interpretation Comments Magnesium Lvl (test code = Magnesium 1.7 1.8-2.4 Lvl) [facility]2022-07-29 12:01:00 Test Item Value Reference Range Interpretation Comments Glucose Lvl (test code = Glucose Lvl) 104 70-99 [facility]2022-07-29 12:01:00 Test Item Value Reference Range Interpretation Comments BUN (test code = BUN) 29 7-22 [facility]2022-07-29 12:01:00 Test Item Value Reference Range Interpretation Comments Creatinine Lvl (test code = Creatinine 0.98 0.50-1.40 Lvl) [facility]2022-07-29 12:01:00 Test Item Value Reference Range Interpretation Comments Sodium Lvl (test code = Sodium Lvl) 133 135-145 [place] 852652-07-29 12:01:00 Test Item Value Reference Range Interpretation Comments Potassium Lvl (test code = Potassium 2.7 3.5-5.1 Lvl) [facility]2022-07-29 12:01:00 Test Item Value Reference Range Interpretation Comments Chloride Lvl (test code = Chloride Lvl) 91 95-109 [facility]2022-07-29 12:01:00 Test Item Value Reference Range Interpretation Comments CO2 (test code = CO2) 33 24-32 [place] 852652-07-29 12:01:00 Test Item Value Reference Range Interpretation Comments AGAP (test code = AGAP) 11.7 10.0-20.0 [place] 852652-07-29 12:01:00 Test Item Value Reference Range Interpretation Comments Calcium Lvl (test code = Calcium Lvl) 7.9 8.5-10.5 [place] 852652-07-29 12:01:00 Test Item Value Reference Range Interpretation Comments eGFR (test code = eGFR) 56 [facility]2022-07-29 12:01:00 Test Item Value Reference Range Interpretation Comments Magnesium Lvl (test code = Magnesium 1.7 1.8-2.4 Lvl) [facility]2022-07-29 12:01:00 Test Item Value Reference Range Interpretation Comments Glucose Lvl (test code = Glucose Lvl) 104 70-99 [facility]2022-07-29 12:01:00 Test Item Value Reference Range Interpretation Comments BUN (test code = BUN) 29 7-22 [place] 852652-07-29 12:01:00 Test Item Value Reference Range Interpretation Comments Creatinine Lvl (test code = Creatinine 0.98 0.50-1.40 Lvl) [facility]2022-07-29 12:01:00 Test Item Value Reference Range Interpretation Comments Sodium Lvl (test code = Sodium Lvl) 133 135-145 [facility]2022-07-29 12:01:00 Test Item Value Reference Range Interpretation Comments Potassium Lvl (test code = Potassium 2.7 3.5-5.1 Lvl) [facility]2022-07-29 12:01:00 Test Item Value Reference Range Interpretation Comments Chloride Lvl (test code = Chloride Lvl) 91 95-109 [facility]2022-07-29 12:01:00 Test Item Value Reference Range Interpretation Comments CO2 (test code = CO2) 33 24-32 [facility]2022-07-29 12:01:00 Test Item Value Reference Range Interpretation Comments AGAP (test code = AGAP) 11.7 10.0-20.0 [facility]2022-07-29 12:01:00 Test Item Value Reference Range Interpretation Comments Calcium Lvl (test code = Calcium Lvl) 7.9 8.5-10.5 [place] 852652-07-29 12:01:00 Test Item Value Reference Range Interpretation Comments eGFR (test code = eGFR) 56 [place] 852652-07-29 12:01:00 Test Item Value Reference Range Interpretation Comments Magnesium Lvl (test code = Magnesium 1.7 1.8-2.4 Lvl) [place] 852652-07-29 12:01:00 Test Item Value Reference Range Interpretation Comments Glucose Lvl (test code = Glucose Lvl) 104 70-99 [place] 852652-07-29 12:01:00 Test Item Value Reference Range Interpretation Comments BUN (test code = BUN) 29 7-22 [place] 852652-07-29 12:01:00 Test Item Value Reference Range Interpretation Comments Creatinine Lvl (test code = Creatinine 0.98 0.50-1.40 Lvl) [place] 852652-07-29 12:01:00 Test Item Value Reference Range Interpretation Comments Sodium Lvl (test code = Sodium Lvl) 133 135-145 [place] 852652-07-29 12:01:00 Test Item Value Reference Range Interpretation Comments Potassium Lvl (test code = Potassium 2.7 3.5-5.1 Lvl) [place] 852652-07-29 12:01:00 Test Item Value Reference Range Interpretation Comments Chloride Lvl (test code = Chloride Lvl) 91 95-109 [place] 852652-07-29 12:01:00 Test Item Value Reference Range Interpretation Comments CO2 (test code = CO2) 33 24-32 [place] 852652-07-29 12:01:00 Test Item Value Reference Range Interpretation Comments AGAP (test code = AGAP) 11.7 10.0-20.0 [place] 852652-07-29 12:01:00 Test Item Value Reference Range Interpretation Comments Calcium Lvl (test code = Calcium Lvl) 7.9 8.5-10.5 [facility]2022-07-29 12:01:00 Test Item Value Reference Range Interpretation Comments eGFR (test code = eGFR) 56 [place] 852652-07-29 12:01:00 Test Item Value Reference Range Interpretation Comments Magnesium Lvl (test code = Magnesium 1.7 1.8-2.4 Lvl) [place] 852652-07-29 12:01:00 Test Item Value Reference Range Interpretation Comments Glucose Lvl (test code = Glucose Lvl) 104 70-99 [place] 852652-07-29 12:01:00 Test Item Value Reference Range Interpretation Comments BUN (test code = BUN) 29 7-22 [place] 852652-07-29 12:01:00 Test Item Value Reference Range Interpretation Comments Creatinine Lvl (test code = Creatinine 0.98 0.50-1.40 Lvl) [place] 852652-07-29 12:01:00 Test Item Value Reference Range Interpretation Comments Sodium Lvl (test code = Sodium Lvl) 133 135-145 [place] 852652-07-29 12:01:00 Test Item Value Reference Range Interpretation Comments Potassium Lvl (test code = Potassium 2.7 3.5-5.1 Lvl) [place] 852652-07-29 12:01:00 Test Item Value Reference Range Interpretation Comments Chloride Lvl (test code = Chloride Lvl) 91 95-109 [place] 852652-07-29 12:01:00 Test Item Value Reference Range Interpretation Comments CO2 (test code = CO2) 33 24-32 [facility]2022-07-29 12:01:00 Test Item Value Reference Range Interpretation Comments AGAP (test code = AGAP) 11.7 10.0-20.0 [place] 852652-07-29 12:01:00 Test Item Value Reference Range Interpretation Comments Calcium Lvl (test code = Calcium Lvl) 7.9 8.5-10.5 [facility]2022-07-29 12:01:00 Test Item Value Reference Range Interpretation Comments eGFR (test code = eGFR) 56 [place] 852652-07-29 12:01:00 Test Item Value Reference Range Interpretation Comments Magnesium Lvl (test code = Magnesium 1.7 1.8-2.4 Lvl) [facility]2022-07-29 12:01:00 Test Item Value Reference Range Interpretation Comments Glucose Lvl (test code = Glucose Lvl) 104 70-99 [place] 852652-07-29 12:01:00 Test Item Value Reference Range Interpretation Comments BUN (test code = BUN) 06-10 [facility]2022-07-29 12:01:00 Test Item Value Reference Range Interpretation Comments Creatinine Lvl (test code = Creatinine 0.98 0.50-1.40 Lvl) [facility]2022-07-29 12:01:00 Test Item Value Reference Range Interpretation Comments Sodium Lvl (test code = Sodium Lvl) 133 135-145 [place] 852652-07-29 12:01:00 Test Item Value Reference Range Interpretation Comments Potassium Lvl (test code = Potassium 2.7 3.5-5.1 Lvl) [facility]2022-07-29 12:01:00 Test Item Value Reference Range Interpretation Comments Chloride Lvl (test code = Chloride Lvl) 91 95-109 [facility]2022-07-29 12:01:00 Test Item Value Reference Range Interpretation Comments CO2 (test code = CO2) 33 24-32 [place] 852652-07-29 12:01:00 Test Item Value Reference Range Interpretation Comments AGAP (test code = AGAP) 11.7 10.0-20.0 [facility]2022-07-29 12:01:00 Test Item Value Reference Range Interpretation Comments Calcium Lvl (test code = Calcium Lvl) 7.9 8.5-10.5 [facility]2022-07-29 12:01:00 Test Item Value Reference Range Interpretation Comments eGFR (test code = eGFR) 56 [facility]2022-07-29 12:01:00 Test Item Value Reference Range Interpretation Comments Magnesium Lvl (test code = Magnesium 1.7 1.8-2.4 Lvl) [facility]2022-07-29 12:01:00 Test Item Value Reference Range Interpretation Comments Glucose Lvl (test code = Glucose Lvl) 104 70-99 [facility]2022-07-29 12:01:00 Test Item Value Reference Range Interpretation Comments BUN (test code = BUN) 06-10 [place] 852652-07-29 12:01:00 Test Item Value Reference Range Interpretation Comments Creatinine Lvl (test code = Creatinine 0.98 0.50-1.40 Lvl) [facility]2022-07-29 12:01:00 Test Item Value Reference Range Interpretation Comments Sodium Lvl (test code = Sodium Lvl) 133 135-145 [facility]2022-07-29 12:01:00 Test Item Value Reference Range Interpretation Comments Potassium Lvl (test code = Potassium 2.7 3.5-5.1 Lvl) [facility]2022-07-29 12:01:00 Test Item Value Reference Range Interpretation Comments Chloride Lvl (test code = Chloride Lvl) 91 95-109 [facility]2022-07-29 12:01:00 Test Item Value Reference Range Interpretation Comments CO2 (test code = CO2) 33 24-32 [facility]2022-07-29 12:01:00 Test Item Value Reference Range Interpretation Comments AGAP (test code = AGAP) 11.7 10.0-20.0 [facility]2022-07-29 12:01:00 Test Item Value Reference Range Interpretation Comments Calcium Lvl (test code = Calcium Lvl) 7.9 8.5-10.5 [facility]2022-07-29 12:01:00 Test Item Value Reference Range Interpretation Comments eGFR (test code = eGFR) 56 [facility]2022-07-29 12:01:00 Test Item Value Reference Range Interpretation Comments Magnesium Lvl (test code = Magnesium 1.7 1.8-2.4 Lvl) [facility]2022-07-29 12:01:00 Test Item Value Reference Range Interpretation Comments Glucose Lvl (test code = Glucose Lvl) 104 70-99 [facility]2022-07-29 12:01:00 Test Item Value Reference Range Interpretation Comments BUN (test code = BUN) 29 7-22 [facility]2022-07-29 12:01:00 Test Item Value Reference Range Interpretation Comments Creatinine Lvl (test code = Creatinine 0.98 0.50-1.40 Lvl) [facility]2022-07-29 12:01:00 Test Item Value Reference Range Interpretation Comments Sodium Lvl (test code = Sodium Lvl) 133 135-145 [facility]2022-07-29 12:01:00 Test Item Value Reference Range Interpretation Comments Potassium Lvl (test code = Potassium 2.7 3.5-5.1 Lvl) [place] 852652-07-29 12:01:00 Test Item Value Reference Range Interpretation Comments Chloride Lvl (test code = Chloride Lvl) 91 95-109 [place] 852652-07-29 12:01:00 Test Item Value Reference Range Interpretation Comments CO2 (test code = CO2) 33 24-32 [place] 852652-07-29 12:01:00 Test Item Value Reference Range Interpretation Comments AGAP (test code = AGAP) 11.7 10.0-20.0 [facility]2022-07-29 12:01:00 Test Item Value Reference Range Interpretation Comments Calcium Lvl (test code = Calcium Lvl) 7.9 8.5-10.5 [place] 852652-07-29 12:01:00 Test Item Value Reference Range Interpretation Comments eGFR (test code = eGFR) 56 [place] 852652-07-29 12:01:00 Test Item Value Reference Range Interpretation Comments Magnesium Lvl (test code = Magnesium 1.7 1.8-2.4 Lvl) [facility]2022-07-29 12:01:00 Test Item Value Reference Range Interpretation Comments Glucose Lvl (test code = Glucose Lvl) 104 70-99 [place] 852652-07-29 12:01:00 Test Item Value Reference Range Interpretation Comments BUN (test code = BUN) 29 7-22 [place] 852652-07-29 12:01:00 Test Item Value Reference Range Interpretation Comments Creatinine Lvl (test code = Creatinine 0.98 0.50-1.40 Lvl) [facility]2022-07-29 12:01:00 Test Item Value Reference Range Interpretation Comments Sodium Lvl (test code = Sodium Lvl) 133 135-145 [facility]2022-07-29 12:01:00 Test Item Value Reference Range Interpretation Comments Potassium Lvl (test code = Potassium 2.7 3.5-5.1 Lvl) [facility]2022-07-29 12:01:00 Test Item Value Reference Range Interpretation Comments Chloride Lvl (test code = Chloride Lvl) 91 95-109 [place] 852652-07-29 12:01:00 Test Item Value Reference Range Interpretation Comments CO2 (test code = CO2) 33 24-32 [place] 852652-07-29 12:01:00 Test Item Value Reference Range Interpretation Comments AGAP (test code = AGAP) 11.7 10.0-20.0 [place] 852652-07-29 12:01:00 Test Item Value Reference Range Interpretation Comments Calcium Lvl (test code = Calcium Lvl) 7.9 8.5-10.5 [place] 852652-07-29 12:01:00 Test Item Value Reference Range Interpretation Comments eGFR (test code = eGFR) 56 [place] 852652-07-29 12:01:00 Test Item Value Reference Range Interpretation Comments Magnesium Lvl (test code = Magnesium 1.7 1.8-2.4 Lvl) [place] 852652-07-29 12:01:00 Test Item Value Reference Range Interpretation Comments Glucose Lvl (test code = Glucose Lvl) 104 70-99 [place] 852652-07-29 12:01:00 Test Item Value Reference Range Interpretation Comments BUN (test code = BUN) 29 7-22 [place] 852652-07-29 12:01:00 Test Item Value Reference Range Interpretation Comments Creatinine Lvl (test code = Creatinine 0.98 0.50-1.40 Lvl) [place] 852652-07-29 12:01:00 Test Item Value Reference Range Interpretation Comments Sodium Lvl (test code = Sodium Lvl) 133 135-145 [place] 852652-07-29 12:01:00 Test Item Value Reference Range Interpretation Comments Potassium Lvl (test code = Potassium 2.7 3.5-5.1 Lvl) [place] 852652-07-29 12:01:00 Test Item Value Reference Range Interpretation Comments Chloride Lvl (test code = Chloride Lvl) 91 95-109 [place] 852652-07-29 12:01:00 Test Item Value Reference Range Interpretation Comments CO2 (test code = CO2) 33 -32 [facility]2022-07-29 12:01:00 Test Item Value Reference Range Interpretation Comments AGAP (test code = AGAP) 11.7 10.0-20.0 [place] 852652-07-29 12:01:00 Test Item Value Reference Range Interpretation Comments Calcium Lvl (test code = Calcium Lvl) 7.9 8.5-10.5 [facility]2022-07-29 12:01:00 Test Item Value Reference Range Interpretation Comments eGFR (test code = eGFR) 56 [facility]2022-07-29 12:01:00 Test Item Value Reference Range Interpretation Comments Magnesium Lvl (test code = Magnesium 1.7 1.8-2.4 Lvl) [place] 852652-07-29 12:01:00 Test Item Value Reference Range Interpretation Comments Glucose Lvl (test code = Glucose Lvl) 104 70-99 [place] 852652-07-29 12:01:00 Test Item Value Reference Range Interpretation Comments BUN (test code = BUN) 29 7-22 [place] 852652-07-29 12:01:00 Test Item Value Reference Range Interpretation Comments Creatinine Lvl (test code = Creatinine 0.98 0.50-1.40 Lvl) [place] 852652-07-29 12:01:00 Test Item Value Reference Range Interpretation Comments Sodium Lvl (test code = Sodium Lvl) 133 135-145 [place] 852652-07-29 12:01:00 Test Item Value Reference Range Interpretation Comments Potassium Lvl (test code = Potassium 2.7 3.5-5.1 Lvl) [facility]2022-07-29 12:01:00 Test Item Value Reference Range Interpretation Comments Chloride Lvl (test code = Chloride Lvl) 91 95-109 [facility]2022-07-29 12:01:00 Test Item Value Reference Range Interpretation Comments CO2 (test code = CO2) 33 24-32 [facility]2022-07-29 12:01:00 Test Item Value Reference Range Interpretation Comments AGAP (test code = AGAP) 11.7 10.0-20.0 [place] 852652-07-29 12:01:00 Test Item Value Reference Range Interpretation Comments Calcium Lvl (test code = Calcium Lvl) 7.9 8.5-10.5 [facility]2022-07-29 12:01:00 Test Item Value Reference Range Interpretation Comments eGFR (test code = eGFR) 56 [place] 852652-07-29 12:01:00 Test Item Value Reference Range Interpretation Comments Magnesium Lvl (test code = Magnesium 1.7 1.8-2.4 Lvl) [facility]2022-07-29 12:01:00 Test Item Value Reference Range Interpretation Comments Glucose Lvl (test code = Glucose Lvl) 104 70-99 [place] 852652-07-29 12:01:00 Test Item Value Reference Range Interpretation Comments BUN (test code = BUN) 29 7-22 [facility]2022-07-29 12:01:00 Test Item Value Reference Range Interpretation Comments Creatinine Lvl (test code = Creatinine 0.98 0.50-1.40 Lvl) [facility]2022-07-29 12:01:00 Test Item Value Reference Range Interpretation Comments Sodium Lvl (test code = Sodium Lvl) 133 135-145 [facility]2022-07-29 12:01:00 Test Item Value Reference Range Interpretation Comments Potassium Lvl (test code = Potassium 2.7 3.5-5.1 Lvl) [facility]2022-07-29 12:01:00 Test Item Value Reference Range Interpretation Comments Chloride Lvl (test code = Chloride Lvl) 91 95-109 [facility]2022-07-29 12:01:00 Test Item Value Reference Range Interpretation Comments CO2 (test code = CO2) 33 24-32 [facility]2022-07-29 12:01:00 Test Item Value Reference Range Interpretation Comments AGAP (test code = AGAP) 11.7 10.0-20.0 [facility]2022-07-29 12:01:00 Test Item Value Reference Range Interpretation Comments Calcium Lvl (test code = Calcium Lvl) 7.9 8.5-10.5 [facility]2022-07-29 12:01:00 Test Item Value Reference Range Interpretation Comments eGFR (test code = eGFR) 56 [facility]2022-07-29 12:01:00 Test Item Value Reference Range Interpretation Comments Magnesium Lvl (test code = Magnesium 1.7 1.8-2.4 Lvl) [facility]2022-07-29 12:01:00 Test Item Value Reference Range Interpretation Comments Glucose Lvl (test code = Glucose Lvl) 104 70-99 [facility]2022-07-29 12:01:00 Test Item Value Reference Range Interpretation Comments BUN (test code = BUN) 06-10 [place] 852652-07-29 12:01:00 Test Item Value Reference Range Interpretation Comments Creatinine Lvl (test code = Creatinine 0.98 0.50-1.40 Lvl) [facility]2022-07-29 12:01:00 Test Item Value Reference Range Interpretation Comments Sodium Lvl (test code = Sodium Lvl) 133 135-145 [place] 852652-07-29 12:01:00 Test Item Value Reference Range Interpretation Comments Potassium Lvl (test code = Potassium 2.7 3.5-5.1 Lvl) [facility]2022-07-29 12:01:00 Test Item Value Reference Range Interpretation Comments Chloride Lvl (test code = Chloride Lvl) 91 95-109 [facility]2022-07-29 12:01:00 Test Item Value Reference Range Interpretation Comments CO2 (test code = CO2) 33 24-32 [facility]2022-07-29 12:01:00 Test Item Value Reference Range Interpretation Comments AGAP (test code = AGAP) 11.7 10.0-20.0 [facility]2022-07-29 12:01:00 Test Item Value Reference Range Interpretation Comments Calcium Lvl (test code = Calcium Lvl) 7.9 8.5-10.5 [place] 852652-07-29 12:01:00 Test Item Value Reference Range Interpretation Comments eGFR (test code = eGFR) 56 [facility]2022-07-29 12:01:00 Test Item Value Reference Range Interpretation Comments Magnesium Lvl (test code = Magnesium 1.7 1.8-2.4 Lvl) [facility]2022-07-29 12:01:00 Test Item Value Reference Range Interpretation Comments Glucose Lvl (test code = Glucose Lvl) 104 70-99 [facility]2022-07-29 12:01:00 Test Item Value Reference Range Interpretation Comments BUN (test code = BUN) 29 - [facility]2022-07-29 12:01:00 Test Item Value Reference Range Interpretation Comments Creatinine Lvl (test code = Creatinine 0.98 0.50-1.40 Lvl) [place] 852652-07-29 12:01:00 Test Item Value Reference Range Interpretation Comments Sodium Lvl (test code = Sodium Lvl) 133 135-145 [place] 852652-07-29 12:01:00 Test Item Value Reference Range Interpretation Comments Potassium Lvl (test code = Potassium 2.7 3.5-5.1 Lvl) [place] 852652-07-29 12:01:00 Test Item Value Reference Range Interpretation Comments Chloride Lvl (test code = Chloride Lvl) 91 95-109 [place] 852652-07-29 12:01:00 Test Item Value Reference Range Interpretation Comments CO2 (test code = CO2) 33 24-32 [place] 852652-07-29 12:01:00 Test Item Value Reference Range Interpretation Comments AGAP (test code = AGAP) 11.7 10.0-20.0 [place] 852652-07-29 12:01:00 Test Item Value Reference Range Interpretation Comments Calcium Lvl (test code = Calcium Lvl) 7.9 8.5-10.5 [place] 852652-07-29 12:01:00 Test Item Value Reference Range Interpretation Comments eGFR (test code = eGFR) 56 [place] 852652-07-29 12:01:00 Test Item Value Reference Range Interpretation Comments Magnesium Lvl (test code = Magnesium 1.7 1.8-2.4 Lvl) [facility]2022-07-29 12:01:00 Test Item Value Reference Range Interpretation Comments Glucose Lvl (test code = Glucose Lvl) 104 70-99 [place] 852652-07-29 12:01:00 Test Item Value Reference Range Interpretation Comments BUN (test code = BUN) 29 7-22 [place] 852652-07-29 12:01:00 Test Item Value Reference Range Interpretation Comments Creatinine Lvl (test code = Creatinine 0.98 0.50-1.40 Lvl) [facility]2022-07-29 12:01:00 Test Item Value Reference Range Interpretation Comments Sodium Lvl (test code = Sodium Lvl) 133 135-145 [place] 852652-07-29 12:01:00 Test Item Value Reference Range Interpretation Comments Potassium Lvl (test code = Potassium 2.7 3.5-5.1 Lvl) [facility]2022-07-29 12:01:00 Test Item Value Reference Range Interpretation Comments Chloride Lvl (test code = Chloride Lvl) 91 95-109 [place] 852652-07-29 12:01:00 Test Item Value Reference Range Interpretation Comments CO2 (test code = CO2) 33 24-32 [place] 852652-07-29 12:01:00 Test Item Value Reference Range Interpretation Comments AGAP (test code = AGAP) 11.7 10.0-20.0 [place] 852652-07-29 12:01:00 Test Item Value Reference Range Interpretation Comments Calcium Lvl (test code = Calcium Lvl) 7.9 8.5-10.5 [place] 852652-07-29 12:01:00 Test Item Value Reference Range Interpretation Comments eGFR (test code = eGFR) 56 [place] 852652-07-29 12:01:00 Test Item Value Reference Range Interpretation Comments Magnesium Lvl (test code = Magnesium 1.7 1.8-2.4 Lvl) [place] 852652-07-29 12:01:00 Test Item Value Reference Range Interpretation Comments Glucose Lvl (test code = Glucose Lvl) 104 70-99 [facility]2022-07-29 12:01:00 Test Item Value Reference Range Interpretation Comments BUN (test code = BUN) 29 7-22 [facility]2022-07-29 12:01:00 Test Item Value Reference Range Interpretation Comments Creatinine Lvl (test code = Creatinine 0.98 0.50-1.40 Lvl) [facility]2022-07-29 12:01:00 Test Item Value Reference Range Interpretation Comments Sodium Lvl (test code = Sodium Lvl) 133 135-145 [place] 852652-07-29 12:01:00 Test Item Value Reference Range Interpretation Comments Potassium Lvl (test code = Potassium 2.7 3.5-5.1 Lvl) [place] 852652-07-29 12:01:00 Test Item Value Reference Range Interpretation Comments Chloride Lvl (test code = Chloride Lvl) 91 95-109 [place] 852652-07-29 12:01:00 Test Item Value Reference Range Interpretation Comments CO2 (test code = CO2) 33 24-32 [facility]2022-07-29 12:01:00 Test Item Value Reference Range Interpretation Comments AGAP (test code = AGAP) 11.7 10.0-20.0 [facility]2022-07-29 12:01:00 Test Item Value Reference Range Interpretation Comments Calcium Lvl (test code = Calcium Lvl) 7.9 8.5-10.5 [facility]2022-07-29 12:01:00 Test Item Value Reference Range Interpretation Comments eGFR (test code = eGFR) 56 [place] 852652-07-29 12:01:00 Test Item Value Reference Range Interpretation Comments Magnesium Lvl (test code = Magnesium 1.7 1.8-2.4 Lvl) [facility]2022-07-29 12:01:00 Test Item Value Reference Range Interpretation Comments Glucose Lvl (test code = Glucose Lvl) 104 70-99 [facility]2022-07-29 12:01:00 Test Item Value Reference Range Interpretation Comments BUN (test code = BUN) 29 7-22 [place] 852652-07-29 12:01:00 Test Item Value Reference Range Interpretation Comments Creatinine Lvl (test code = Creatinine 0.98 0.50-1.40 Lvl) [facility]2022-07-29 12:01:00 Test Item Value Reference Range Interpretation Comments Sodium Lvl (test code = Sodium Lvl) 133 135-145 [facility]2022-07-29 12:01:00 Test Item Value Reference Range Interpretation Comments Potassium Lvl (test code = Potassium 2.7 3.5-5.1 Lvl) [place] 852652-07-29 12:01:00 Test Item Value Reference Range Interpretation Comments Chloride Lvl (test code = Chloride Lvl) 91 95-109 [facility]2022-07-29 12:01:00 Test Item Value Reference Range Interpretation Comments CO2 (test code = CO2) 33 24-32 [facility]2022-07-29 12:01:00 Test Item Value Reference Range Interpretation Comments AGAP (test code = AGAP) 11.7 10.0-20.0 [place] 852652-07-29 12:01:00 Test Item Value Reference Range Interpretation Comments Calcium Lvl (test code = Calcium Lvl) 7.9 8.5-10.5 [facility]2022-07-29 12:01:00 Test Item Value Reference Range Interpretation Comments eGFR (test code = eGFR) 56 [place] 852652-07-29 12:01:00 Test Item Value Reference Range Interpretation Comments Magnesium Lvl (test code = Magnesium 1.7 1.8-2.4 Lvl) [facility]2022-07-29 12:01:00 Test Item Value Reference Range Interpretation Comments Glucose Lvl (test code = Glucose Lvl) 104 70-99 [facility]2022-07-29 12:01:00 Test Item Value Reference Range Interpretation Comments BUN (test code = BUN) 29 7-22 [facility]2022-07-29 12:01:00 Test Item Value Reference Range Interpretation Comments Creatinine Lvl (test code = Creatinine 0.98 0.50-1.40 Lvl) [facility]2022-07-29 12:01:00 Test Item Value Reference Range Interpretation Comments Sodium Lvl (test code = Sodium Lvl) 133 135-145 [facility]2022-07-29 12:01:00 Test Item Value Reference Range Interpretation Comments Potassium Lvl (test code = Potassium 2.7 3.5-5.1 Lvl) [facility]2022-07-29 12:01:00 Test Item Value Reference Range Interpretation Comments Chloride Lvl (test code = Chloride Lvl) 91 95-109 [facility]2022-07-29 12:01:00 Test Item Value Reference Range Interpretation Comments CO2 (test code = CO2) 33 24-32 [facility]2022-07-29 12:01:00 Test Item Value Reference Range Interpretation Comments AGAP (test code = AGAP) 11.7 10.0-20.0 [place] 852652-07-29 12:01:00 Test Item Value Reference Range Interpretation Comments Calcium Lvl (test code = Calcium Lvl) 7.9 8.5-10.5 [facility]2022-07-29 12:01:00 Test Item Value Reference Range Interpretation Comments eGFR (test code = eGFR) 56 [place] 852652-07-29 12:01:00 Test Item Value Reference Range Interpretation Comments Magnesium Lvl (test code = Magnesium 1.7 1.8-2.4 Lvl) [place] 852652-07-29 12:01:00 Test Item Value Reference Range Interpretation Comments Glucose Lvl (test code = Glucose Lvl) 104 70-99 [place] 852652-07-29 12:01:00 Test Item Value Reference Range Interpretation Comments BUN (test code = BUN) 29 7-22 [place] 852652-07-29 12:01:00 Test Item Value Reference Range Interpretation Comments Creatinine Lvl (test code = Creatinine 0.98 0.50-1.40 Lvl) [place] 852652-07-29 12:01:00 Test Item Value Reference Range Interpretation Comments Sodium Lvl (test code = Sodium Lvl) 133 135-145 [place] 852652-07-29 12:01:00 Test Item Value Reference Range Interpretation Comments Potassium Lvl (test code = Potassium 2.7 3.5-5.1 Lvl) [place] 852652-07-29 12:01:00 Test Item Value Reference Range Interpretation Comments Chloride Lvl (test code = Chloride Lvl) 91 95-109 [place] 852652-07-29 12:01:00 Test Item Value Reference Range Interpretation Comments CO2 (test code = CO2) 33 24-32 [place] 852652-07-29 12:01:00 Test Item Value Reference Range Interpretation Comments AGAP (test code = AGAP) 11.7 10.0-20.0 [place] 852652-07-29 12:01:00 Test Item Value Reference Range Interpretation Comments Calcium Lvl (test code = Calcium Lvl) 7.9 8.5-10.5 [place] 852652-07-29 12:01:00 Test Item Value Reference Range Interpretation Comments eGFR (test code = eGFR) 56 [place] 852652-07-29 12:01:00 Test Item Value Reference Range Interpretation Comments Magnesium Lvl (test code = Magnesium 1.7 1.8-2.4 Lvl) [place] 852652-07-29 12:01:00 Test Item Value Reference Range Interpretation Comments Glucose Lvl (test code = Glucose Lvl) 104 70-99 [facility]2022-07-29 12:01:00 Test Item Value Reference Range Interpretation Comments BUN (test code = BUN) 06-10 [facility]2022-07-29 12:01:00 Test Item Value Reference Range Interpretation Comments Creatinine Lvl (test code = Creatinine 0.98 0.50-1.40 Lvl) [facility]2022-07-29 12:01:00 Test Item Value Reference Range Interpretation Comments Sodium Lvl (test code = Sodium Lvl) 133 135-145 [place] 852652-07-29 12:01:00 Test Item Value Reference Range Interpretation Comments Potassium Lvl (test code = Potassium 2.7 3.5-5.1 Lvl) [facility]2022-07-29 12:01:00 Test Item Value Reference Range Interpretation Comments Chloride Lvl (test code = Chloride Lvl) 91 95-109 [facility]2022-07-29 12:01:00 Test Item Value Reference Range Interpretation Comments CO2 (test code = CO2) 33 24-32 [facility]2022-07-29 12:01:00 Test Item Value Reference Range Interpretation Comments AGAP (test code = AGAP) 11.7 10.0-20.0 [facility]2022-07-29 12:01:00 Test Item Value Reference Range Interpretation Comments Calcium Lvl (test code = Calcium Lvl) 7.9 8.5-10.5 [facility]2022-07-29 12:01:00 Test Item Value Reference Range Interpretation Comments eGFR (test code = eGFR) 56 [facility]2022-07-29 12:01:00 Test Item Value Reference Range Interpretation Comments Magnesium Lvl (test code = Magnesium 1.7 1.8-2.4 Lvl) [facility]2022-07-29 12:01:00 Test Item Value Reference Range Interpretation Comments Glucose Lvl (test code = Glucose Lvl) 104 70-99 [facility]2022-07-29 12:01:00 Test Item Value Reference Range Interpretation Comments BUN (test code = BUN) 06-10 [facility]2022-07-29 12:01:00 Test Item Value Reference Range Interpretation Comments Creatinine Lvl (test code = Creatinine 0.98 0.50-1.40 Lvl) [facility]2022-07-29 12:01:00 Test Item Value Reference Range Interpretation Comments Sodium Lvl (test code = Sodium Lvl) 133 135-145 [place] 852652-07-29 12:01:00 Test Item Value Reference Range Interpretation Comments Potassium Lvl (test code = Potassium 2.7 3.5-5.1 Lvl) [place] 852652-07-29 12:01:00 Test Item Value Reference Range Interpretation Comments Chloride Lvl (test code = Chloride Lvl) 91 95-109 [place] 852652-07-29 12:01:00 Test Item Value Reference Range Interpretation Comments CO2 (test code = CO2) 33 24-32 [place] 852652-07-29 12:01:00 Test Item Value Reference Range Interpretation Comments AGAP (test code = AGAP) 11.7 10.0-20.0 [place] 852652-07-29 12:01:00 Test Item Value Reference Range Interpretation Comments Calcium Lvl (test code = Calcium Lvl) 7.9 8.5-10.5 [facility]2022-07-29 12:01:00 Test Item Value Reference Range Interpretation Comments eGFR (test code = eGFR) 56 [place] 852652-07-29 12:01:00 Test Item Value Reference Range Interpretation Comments Magnesium Lvl (test code = Magnesium 1.7 1.8-2.4 Lvl) [place] 852652-07-29 12:01:00 Test Item Value Reference Range Interpretation Comments Glucose Lvl (test code = Glucose Lvl) 104 70-99 [place] 852652-07-29 12:01:00 Test Item Value Reference Range Interpretation Comments BUN (test code = BUN) 29 7-22 [place] 852652-07-29 12:01:00 Test Item Value Reference Range Interpretation Comments Creatinine Lvl (test code = Creatinine 0.98 0.50-1.40 Lvl) [place] 852652-07-29 12:01:00 Test Item Value Reference Range Interpretation Comments Sodium Lvl (test code = Sodium Lvl) 133 135-145 [place] 852652-07-29 12:01:00 Test Item Value Reference Range Interpretation Comments Potassium Lvl (test code = Potassium 2.7 3.5-5.1 Lvl) [place] 852652-07-29 12:01:00 Test Item Value Reference Range Interpretation Comments Chloride Lvl (test code = Chloride Lvl) 91 95-109 [place] 852652-07-29 12:01:00 Test Item Value Reference Range Interpretation Comments CO2 (test code = CO2) 33 24-32 [place] 852652-07-29 12:01:00 Test Item Value Reference Range Interpretation Comments AGAP (test code = AGAP) 11.7 10.0-20.0 [place] 852652-07-29 12:01:00 Test Item Value Reference Range Interpretation Comments Calcium Lvl (test code = Calcium Lvl) 7.9 8.5-10.5 [place] 852652-07-29 12:01:00 Test Item Value Reference Range Interpretation Comments eGFR (test code = eGFR) 56 [place] 852652-07-29 12:01:00 Test Item Value Reference Range Interpretation Comments Magnesium Lvl (test code = Magnesium 1.7 1.8-2.4 Lvl) [place] 852652-07-29 12:01:00 Test Item Value Reference Range Interpretation Comments Glucose Lvl (test code = Glucose Lvl) 104 70-99 [facility]2022-07-29 12:01:00 Test Item Value Reference Range Interpretation Comments BUN (test code = BUN) 29 7-22 [place] 852652-07-29 12:01:00 Test Item Value Reference Range Interpretation Comments Creatinine Lvl (test code = Creatinine 0.98 0.50-1.40 Lvl) [place] 852652-07-29 12:01:00 Test Item Value Reference Range Interpretation Comments Sodium Lvl (test code = Sodium Lvl) 133 135-145 [place] 852652-07-29 12:01:00 Test Item Value Reference Range Interpretation Comments Potassium Lvl (test code = Potassium 2.7 3.5-5.1 Lvl) [place] 852652-07-29 12:01:00 Test Item Value Reference Range Interpretation Comments Chloride Lvl (test code = Chloride Lvl) 91 95-109 [place] 852652-07-29 12:01:00 Test Item Value Reference Range Interpretation Comments CO2 (test code = CO2) 33 24-32 [facility]2022-07-29 12:01:00 Test Item Value Reference Range Interpretation Comments AGAP (test code = AGAP) 11.7 10.0-20.0 [place] 852652-07-29 12:01:00 Test Item Value Reference Range Interpretation Comments Calcium Lvl (test code = Calcium Lvl) 7.9 8.5-10.5 [facility]2022-07-29 12:01:00 Test Item Value Reference Range Interpretation Comments eGFR (test code = eGFR) 56 [place] 852652-07-29 12:01:00 Test Item Value Reference Range Interpretation Comments Magnesium Lvl (test code = Magnesium 1.7 1.8-2.4 Lvl) [facility]2022-07-29 12:01:00 Test Item Value Reference Range Interpretation Comments Glucose Lvl (test code = Glucose Lvl) 104 70-99 [facility]2022-07-29 12:01:00 Test Item Value Reference Range Interpretation Comments BUN (test code = BUN) 29 7-22 [place] 852652-07-29 12:01:00 Test Item Value Reference Range Interpretation Comments Creatinine Lvl (test code = Creatinine 0.98 0.50-1.40 Lvl) [facility]2022-07-29 12:01:00 Test Item Value Reference Range Interpretation Comments Sodium Lvl (test code = Sodium Lvl) 133 135-145 [place] 852652-07-29 12:01:00 Test Item Value Reference Range Interpretation Comments Potassium Lvl (test code = Potassium 2.7 3.5-5.1 Lvl) [place] 852652-07-29 12:01:00 Test Item Value Reference Range Interpretation Comments Chloride Lvl (test code = Chloride Lvl) 91 95-109 [facility]2022-07-29 12:01:00 Test Item Value Reference Range Interpretation Comments CO2 (test code = CO2) 33 24-32 [place] 852652-07-29 12:01:00 Test Item Value Reference Range Interpretation Comments AGAP (test code = AGAP) 11.7 10.0-20.0 [place] 852652-07-29 12:01:00 Test Item Value Reference Range Interpretation Comments Calcium Lvl (test code = Calcium Lvl) 7.9 8.5-10.5 [place] 852652-07-29 12:01:00 Test Item Value Reference Range Interpretation Comments eGFR (test code = eGFR) 56 [place] 852652-07-29 12:01:00 Test Item Value Reference Range Interpretation Comments Magnesium Lvl (test code = Magnesium 1.7 1.8-2.4 Lvl) [place] 852652-07-29 12:01:00 Test Item Value Reference Range Interpretation Comments Glucose Lvl (test code = Glucose Lvl) 104 70-99 [place] 852652-07-29 12:01:00 Test Item Value Reference Range Interpretation Comments BUN (test code = BUN) 29 7-22 [place] 852652-07-29 12:01:00 Test Item Value Reference Range Interpretation Comments Creatinine Lvl (test code = Creatinine 0.98 0.50-1.40 Lvl) [place] 852652-07-29 12:01:00 Test Item Value Reference Range Interpretation Comments Sodium Lvl (test code = Sodium Lvl) 133 135-145 [place] 852652-07-29 12:01:00 Test Item Value Reference Range Interpretation Comments Potassium Lvl (test code = Potassium 2.7 3.5-5.1 Lvl) [place] 852652-07-29 12:01:00 Test Item Value Reference Range Interpretation Comments Chloride Lvl (test code = Chloride Lvl) 91 95-109 [place] 852652-07-29 12:01:00 Test Item Value Reference Range Interpretation Comments CO2 (test code = CO2) 33 24-32 [place] 852652-07-29 12:01:00 Test Item Value Reference Range Interpretation Comments AGAP (test code = AGAP) 11.7 10.0-20.0 [place] 852652-07-29 12:01:00 Test Item Value Reference Range Interpretation Comments Calcium Lvl (test code = Calcium Lvl) 7.9 8.5-10.5 [place] 852652-07-29 12:01:00 Test Item Value Reference Range Interpretation Comments eGFR (test code = eGFR) 56 [place] 852652-07-29 12:01:00 Test Item Value Reference Range Interpretation Comments Magnesium Lvl (test code = Magnesium 1.7 1.8-2.4 Lvl) [place] 852652-07-29 12:01:00 Test Item Value Reference Range Interpretation Comments Glucose Lvl (test code = Glucose Lvl) 104 70-99 [place] 852652-07-29 12:01:00 Test Item Value Reference Range Interpretation Comments BUN (test code = BUN) 29 7-22 [place] 852652-07-29 12:01:00 Test Item Value Reference Range Interpretation Comments Creatinine Lvl (test code = Creatinine 0.98 0.50-1.40 Lvl) [place] 852652-07-29 12:01:00 Test Item Value Reference Range Interpretation Comments Sodium Lvl (test code = Sodium Lvl) 133 135-145 [place] 852652-07-29 12:01:00 Test Item Value Reference Range Interpretation Comments Potassium Lvl (test code = Potassium 2.7 3.5-5.1 Lvl) [facility]2022-07-29 12:01:00 Test Item Value Reference Range Interpretation Comments Chloride Lvl (test code = Chloride Lvl) 91 95-109 [place] 852652-07-29 12:01:00 Test Item Value Reference Range Interpretation Comments CO2 (test code = CO2) 33 24-32 [place] 852652-07-29 12:01:00 Test Item Value Reference Range Interpretation Comments AGAP (test code = AGAP) 11.7 10.0-20.0 [place] 852652-07-29 12:01:00 Test Item Value Reference Range Interpretation Comments Calcium Lvl (test code = Calcium Lvl) 7.9 8.5-10.5 [place] 852652-07-29 12:01:00 Test Item Value Reference Range Interpretation Comments eGFR (test code = eGFR) 56 [place] 852652-07-29 12:01:00 Test Item Value Reference Range Interpretation Comments Magnesium Lvl (test code = Magnesium 1.7 1.8-2.4 Lvl) [place] 852652-07-29 12:01:00 Test Item Value Reference Range Interpretation Comments Glucose Lvl (test code = Glucose Lvl) 104 70-99 [facility]2022-07-29 12:01:00 Test Item Value Reference Range Interpretation Comments BUN (test code = BUN) 06-10 [facility]2022-07-29 12:01:00 Test Item Value Reference Range Interpretation Comments Creatinine Lvl (test code = Creatinine 0.98 0.50-1.40 Lvl) [facility]2022-07-29 12:01:00 Test Item Value Reference Range Interpretation Comments Sodium Lvl (test code = Sodium Lvl) 133 135-145 [facility]2022-07-29 12:01:00 Test Item Value Reference Range Interpretation Comments Potassium Lvl (test code = Potassium 2.7 3.5-5.1 Lvl) [facility]2022-07-29 12:01:00 Test Item Value Reference Range Interpretation Comments Chloride Lvl (test code = Chloride Lvl) 91 95-109 [facility]2022-07-29 12:01:00 Test Item Value Reference Range Interpretation Comments CO2 (test code = CO2) 33 24-32 [facility]2022-07-29 12:01:00 Test Item Value Reference Range Interpretation Comments AGAP (test code = AGAP) 11.7 10.0-20.0 [facility]2022-07-29 12:01:00 Test Item Value Reference Range Interpretation Comments Calcium Lvl (test code = Calcium Lvl) 7.9 8.5-10.5 [facility]2022-07-29 12:01:00 Test Item Value Reference Range Interpretation Comments eGFR (test code = eGFR) 56 [facility]2022-07-29 12:01:00 Test Item Value Reference Range Interpretation Comments Magnesium Lvl (test code = Magnesium 1.7 1.8-2.4 Lvl) [facility]2022-07-29 12:01:00 Test Item Value Reference Range Interpretation Comments Glucose Lvl (test code = Glucose Lvl) 104 70-99 [facility]2022-07-29 12:01:00 Test Item Value Reference Range Interpretation Comments BUN (test code = BUN) 06-10 [facility]2022-07-29 12:01:00 Test Item Value Reference Range Interpretation Comments Creatinine Lvl (test code = Creatinine 0.98 0.50-1.40 Lvl) [place]2652-07-29 12:01:00 Test Item Value Reference Range Interpretation Comments Sodium Lvl (test code = Sodium Lvl) 133 135-145 [place] 852652-07-29 12:01:00 Test Item Value Reference Range Interpretation Comments Potassium Lvl (test code = Potassium 2.7 3.5-5.1 Lvl) [place] 852652-07-29 12:01:00 Test Item Value Reference Range Interpretation Comments Chloride Lvl (test code = Chloride Lvl) 91 95-109 [place] 852652-07-29 12:01:00 Test Item Value Reference Range Interpretation Comments CO2 (test code = CO2) 33 24-32 [place] 852652-07-29 12:01:00 Test Item Value Reference Range Interpretation Comments AGAP (test code = AGAP) 11.7 10.0-20.0 [place] 852652-07-29 12:01:00 Test Item Value Reference Range Interpretation Comments Calcium Lvl (test code = Calcium Lvl) 7.9 8.5-10.5 [place] 852652-07-29 12:01:00 Test Item Value Reference Range Interpretation Comments eGFR (test code = eGFR) 56 [place] 852652-07-29 12:01:00 Test Item Value Reference Range Interpretation Comments Magnesium Lvl (test code = Magnesium 1.7 1.8-2.4 Lvl) [place] 852652-07-29 12:01:00 Test Item Value Reference Range Interpretation Comments Glucose Lvl (test code = Glucose Lvl) 104 70-99 [place] 852652-07-29 12:01:00 Test Item Value Reference Range Interpretation Comments BUN (test code = BUN) 29 7-22 [place] 852652-07-29 12:01:00 Test Item Value Reference Range Interpretation Comments Creatinine Lvl (test code = Creatinine 0.98 0.50-1.40 Lvl) [place] 852652-07-29 12:01:00 Test Item Value Reference Range Interpretation Comments Sodium Lvl (test code = Sodium Lvl) 133 135-145 [place] 852652-07-29 12:01:00 Test Item Value Reference Range Interpretation Comments Potassium Lvl (test code = Potassium 2.7 3.5-5.1 Lvl) [place] 852652-07-29 12:01:00 Test Item Value Reference Range Interpretation Comments Chloride Lvl (test code = Chloride Lvl) 91 95-109 [place] 852652-07-29 12:01:00 Test Item Value Reference Range Interpretation Comments CO2 (test code = CO2) 33 24-32 [place] 852652-07-29 12:01:00 Test Item Value Reference Range Interpretation Comments AGAP (test code = AGAP) 11.7 10.0-20.0 [place] 852652-07-29 12:01:00 Test Item Value Reference Range Interpretation Comments Calcium Lvl (test code = Calcium Lvl) 7.9 8.5-10.5 [place] 852652-07-29 12:01:00 Test Item Value Reference Range Interpretation Comments eGFR (test code = eGFR) 56 [place] 852652-07-29 12:01:00 Test Item Value Reference Range Interpretation Comments Magnesium Lvl (test code = Magnesium 1.7 1.8-2.4 Lvl) [place] 852652-07-29 12:01:00 Test Item Value Reference Range Interpretation Comments Glucose Lvl (test code = Glucose Lvl) 104 70-99 [place] 852652-07-29 12:01:00 Test Item Value Reference Range Interpretation Comments BUN (test code = BUN) 29 7-22 [place] 852652-07-29 12:01:00 Test Item Value Reference Range Interpretation Comments Creatinine Lvl (test code = Creatinine 0.98 0.50-1.40 Lvl) [place] 852652-07-29 12:01:00 Test Item Value Reference Range Interpretation Comments Sodium Lvl (test code = Sodium Lvl) 133 135-145 [place] 852652-07-29 12:01:00 Test Item Value Reference Range Interpretation Comments Potassium Lvl (test code = Potassium 2.7 3.5-5.1 Lvl) [place] 852652-07-29 12:01:00 Test Item Value Reference Range Interpretation Comments Chloride Lvl (test code = Chloride Lvl) 91 95-109 [facility]2022-07-29 12:01:00 Test Item Value Reference Range Interpretation Comments CO2 (test code = CO2) 33 24-32 [facility]2022-07-29 12:01:00 Test Item Value Reference Range Interpretation Comments AGAP (test code = AGAP) 11.7 10.0-20.0 [facility]2022-07-29 12:01:00 Test Item Value Reference Range Interpretation Comments Calcium Lvl (test code = Calcium Lvl) 7.9 8.5-10.5 [facility]2022-07-29 12:01:00 Test Item Value Reference Range Interpretation Comments eGFR (test code = eGFR) 56 [facility]2022-07-29 12:01:00 Test Item Value Reference Range Interpretation Comments Magnesium Lvl (test code = Magnesium 1.7 1.8-2.4 Lvl) [facility]2022-07-29 12:01:00 Test Item Value Reference Range Interpretation Comments Glucose Lvl (test code = Glucose Lvl) 104 70-99 [facility]2022-07-29 12:01:00 Test Item Value Reference Range Interpretation Comments BUN (test code = BUN) 29 7-22 [facility]2022-07-29 12:01:00 Test Item Value Reference Range Interpretation Comments Creatinine Lvl (test code = Creatinine 0.98 0.50-1.40 Lvl) [facility]2022-07-29 12:01:00 Test Item Value Reference Range Interpretation Comments Sodium Lvl (test code = Sodium Lvl) 133 135-145 [place] 852652-07-29 12:01:00 Test Item Value Reference Range Interpretation Comments Potassium Lvl (test code = Potassium 2.7 3.5-5.1 Lvl) [facility]2022-07-29 12:01:00 Test Item Value Reference Range Interpretation Comments Chloride Lvl (test code = Chloride Lvl) 91 95-109 [facility]2022-07-29 12:01:00 Test Item Value Reference Range Interpretation Comments CO2 (test code = CO2) 33 24-32 [place] 852652-07-29 12:01:00 Test Item Value Reference Range Interpretation Comments AGAP (test code = AGAP) 11.7 10.0-20.0 [place] 852652-07-29 12:01:00 Test Item Value Reference Range Interpretation Comments Calcium Lvl (test code = Calcium Lvl) 7.9 8.5-10.5 [place] 852652-07-29 12:01:00 Test Item Value Reference Range Interpretation Comments eGFR (test code = eGFR) 56 [place] 852652-07-29 12:01:00 Test Item Value Reference Range Interpretation Comments Magnesium Lvl (test code = Magnesium 1.7 1.8-2.4 Lvl) [place] 852652-07-29 12:01:00 Test Item Value Reference Range Interpretation Comments Glucose Lvl (test code = Glucose Lvl) 104 70-99 [place] 852652-07-29 12:01:00 Test Item Value Reference Range Interpretation Comments BUN (test code = BUN) 29 7-22 [place] 852652-07-29 12:01:00 Test Item Value Reference Range Interpretation Comments Creatinine Lvl (test code = Creatinine 0.98 0.50-1.40 Lvl) [facility]2022-07-29 12:01:00 Test Item Value Reference Range Interpretation Comments Sodium Lvl (test code = Sodium Lvl) 133 135-145 [facility]2022-07-29 12:01:00 Test Item Value Reference Range Interpretation Comments Potassium Lvl (test code = Potassium 2.7 3.5-5.1 Lvl) [place]2652-07-29 12:01:00 Test Item Value Reference Range Interpretation Comments Chloride Lvl (test code = Chloride Lvl) 91 95-109 [place] 852652-07-29 12:01:00 Test Item Value Reference Range Interpretation Comments CO2 (test code = CO2) 33 24-32 [facility]2022-07-29 12:01:00 Test Item Value Reference Range Interpretation Comments AGAP (test code = AGAP) 11.7 10.0-20.0 [facility]2022-07-29 12:01:00 Test Item Value Reference Range Interpretation Comments Calcium Lvl (test code = Calcium Lvl) 7.9 8.5-10.5 [place] 852652-07-29 12:01:00 Test Item Value Reference Range Interpretation Comments eGFR (test code = eGFR) 56 [place] 852652-07-29 12:01:00 Test Item Value Reference Range Interpretation Comments Magnesium Lvl (test code = Magnesium 1.7 1.8-2.4 Lvl) [place] 852652-07-29 12:01:00 Test Item Value Reference Range Interpretation Comments Glucose Lvl (test code = Glucose Lvl) 104 70-99 [place] 852652-07-29 12:01:00 Test Item Value Reference Range Interpretation Comments BUN (test code = BUN) 29 7-22 [place] 852652-07-29 12:01:00 Test Item Value Reference Range Interpretation Comments Creatinine Lvl (test code = Creatinine 0.98 0.50-1.40 Lvl) [place] 852652-07-29 12:01:00 Test Item Value Reference Range Interpretation Comments Sodium Lvl (test code = Sodium Lvl) 133 135-145 [place] 852652-07-29 12:01:00 Test Item Value Reference Range Interpretation Comments Potassium Lvl (test code = Potassium 2.7 3.5-5.1 Lvl) [place] 852652-07-29 12:01:00 Test Item Value Reference Range Interpretation Comments Chloride Lvl (test code = Chloride Lvl) 91 95-109 [place] 852652-07-29 12:01:00 Test Item Value Reference Range Interpretation Comments CO2 (test code = CO2) 33 24-32 [place] 852652-07-29 12:01:00 Test Item Value Reference Range Interpretation Comments AGAP (test code = AGAP) 11.7 10.0-20.0 [place] 852652-07-29 12:01:00 Test Item Value Reference Range Interpretation Comments Calcium Lvl (test code = Calcium Lvl) 7.9 8.5-10.5 [place] 852652-07-29 12:01:00 Test Item Value Reference Range Interpretation Comments eGFR (test code = eGFR) 56 [place] 852652-07-29 12:01:00 Test Item Value Reference Range Interpretation Comments Magnesium Lvl (test code = Magnesium 1.7 1.8-2.4 Lvl) [place] 852652-07-29 12:01:00 Test Item Value Reference Range Interpretation Comments Glucose Lvl (test code = Glucose Lvl) 104 70-99 [place] 852652-07-29 12:01:00 Test Item Value Reference Range Interpretation Comments BUN (test code = BUN) 29 7-22 [place] 852652-07-29 12:01:00 Test Item Value Reference Range Interpretation Comments Creatinine Lvl (test code = Creatinine 0.98 0.50-1.40 Lvl) [place] 852652-07-29 12:01:00 Test Item Value Reference Range Interpretation Comments Sodium Lvl (test code = Sodium Lvl) 133 135-145 [place] 852652-07-29 12:01:00 Test Item Value Reference Range Interpretation Comments Potassium Lvl (test code = Potassium 2.7 3.5-5.1 Lvl) [place] 852652-07-29 12:01:00 Test Item Value Reference Range Interpretation Comments Chloride Lvl (test code = Chloride Lvl) 91 95-109 [place] 852652-07-29 12:01:00 Test Item Value Reference Range Interpretation Comments CO2 (test code = CO2) 33 24-32 [place] 852652-07-29 12:01:00 Test Item Value Reference Range Interpretation Comments AGAP (test code = AGAP) 11.7 10.0-20.0 [place] 852652-07-29 12:01:00 Test Item Value Reference Range Interpretation Comments Calcium Lvl (test code = Calcium Lvl) 7.9 8.5-10.5 [facility]2022-07-29 12:01:00 Test Item Value Reference Range Interpretation Comments eGFR (test code = eGFR) 56 [place] 852652-07-29 12:01:00 Test Item Value Reference Range Interpretation Comments Magnesium Lvl (test code = Magnesium 1.7 1.8-2.4 Lvl) [facility]2022-07-29 12:01:00 Test Item Value Reference Range Interpretation Comments Glucose Lvl (test code = Glucose Lvl) 104 70-99 [place] 852652-07-29 12:01:00 Test Item Value Reference Range Interpretation Comments BUN (test code = BUN) 29 7-22 [facility]2022-07-29 12:01:00 Test Item Value Reference Range Interpretation Comments Creatinine Lvl (test code = Creatinine 0.98 0.50-1.40 Lvl) [facility]2022-07-29 12:01:00 Test Item Value Reference Range Interpretation Comments Sodium Lvl (test code = Sodium Lvl) 133 135-145 [place] 852652-07-29 12:01:00 Test Item Value Reference Range Interpretation Comments Potassium Lvl (test code = Potassium 2.7 3.5-5.1 Lvl) [facility]2022-07-29 12:01:00 Test Item Value Reference Range Interpretation Comments Chloride Lvl (test code = Chloride Lvl) 91 95-109 [facility]2022-07-29 12:01:00 Test Item Value Reference Range Interpretation Comments CO2 (test code = CO2) 33 24-32 [facility]2022-07-29 12:01:00 Test Item Value Reference Range Interpretation Comments AGAP (test code = AGAP) 11.7 10.0-20.0 [facility]2022-07-29 12:01:00 Test Item Value Reference Range Interpretation Comments Calcium Lvl (test code = Calcium Lvl) 7.9 8.5-10.5 [facility]2022-07-29 12:01:00 Test Item Value Reference Range Interpretation Comments eGFR (test code = eGFR) 56 [facility]2022-07-29 12:01:00 Test Item Value Reference Range Interpretation Comments Magnesium Lvl (test code = Magnesium 1.7 1.8-2.4 Lvl) [facility]2022-07-29 12:01:00 Test Item Value Reference Range Interpretation Comments Glucose Lvl (test code = Glucose Lvl) 104 70-99 [facility]2022-07-29 12:01:00 Test Item Value Reference Range Interpretation Comments BUN (test code = BUN) 06-10 [place] 852652-07-29 12:01:00 Test Item Value Reference Range Interpretation Comments Creatinine Lvl (test code = Creatinine 0.98 0.50-1.40 Lvl) [facility]2022-07-29 12:01:00 Test Item Value Reference Range Interpretation Comments Sodium Lvl (test code = Sodium Lvl) 133 135-145 [place] 852652-07-29 12:01:00 Test Item Value Reference Range Interpretation Comments Potassium Lvl (test code = Potassium 2.7 3.5-5.1 Lvl) [place] 852652-07-29 12:01:00 Test Item Value Reference Range Interpretation Comments Chloride Lvl (test code = Chloride Lvl) 91 95-109 [facility]2022-07-29 12:01:00 Test Item Value Reference Range Interpretation Comments CO2 (test code = CO2) 33 24-32 [facility]2022-07-29 12:01:00 Test Item Value Reference Range Interpretation Comments AGAP (test code = AGAP) 11.7 10.0-20.0 [facility]2022-07-29 12:01:00 Test Item Value Reference Range Interpretation Comments Calcium Lvl (test code = Calcium Lvl) 7.9 8.5-10.5 [facility]2022-07-29 12:01:00 Test Item Value Reference Range Interpretation Comments eGFR (test code = eGFR) 56 [facility]2022-07-29 12:01:00 Test Item Value Reference Range Interpretation Comments Magnesium Lvl (test code = Magnesium 1.7 1.8-2.4 Lvl) [facility]2022-07-29 12:01:00 Test Item Value Reference Range Interpretation Comments Glucose Lvl (test code = Glucose Lvl) 104 70-99 [facility]2022-07-29 12:01:00 Test Item Value Reference Range Interpretation Comments BUN (test code = BUN) 29 7-22 [place] 852652-07-29 12:01:00 Test Item Value Reference Range Interpretation Comments Creatinine Lvl (test code = Creatinine 0.98 0.50-1.40 Lvl) [facility]2022-07-29 12:01:00 Test Item Value Reference Range Interpretation Comments Sodium Lvl (test code = Sodium Lvl) 133 135-145 [facility]2022-07-29 12:01:00 Test Item Value Reference Range Interpretation Comments Potassium Lvl (test code = Potassium 2.7 3.5-5.1 Lvl) [place] 852652-07-29 12:01:00 Test Item Value Reference Range Interpretation Comments Chloride Lvl (test code = Chloride Lvl) 91 95-109 [place] 852652-07-29 12:01:00 Test Item Value Reference Range Interpretation Comments CO2 (test code = CO2) 33 24-32 [place] 852652-07-29 12:01:00 Test Item Value Reference Range Interpretation Comments AGAP (test code = AGAP) 11.7 10.0-20.0 [facility]2022-07-29 12:01:00 Test Item Value Reference Range Interpretation Comments Calcium Lvl (test code = Calcium Lvl) 7.9 8.5-10.5 [facility]2022-07-29 12:01:00 Test Item Value Reference Range Interpretation Comments eGFR (test code = eGFR) 56 [place] 852652-07-29 12:01:00 Test Item Value Reference Range Interpretation Comments Magnesium Lvl (test code = Magnesium 1.7 1.8-2.4 Lvl) [facility]2022-07-29 12:01:00 Test Item Value Reference Range Interpretation Comments Glucose Lvl (test code = Glucose Lvl) 104 70-99 [place] 852652-07-29 12:01:00 Test Item Value Reference Range Interpretation Comments BUN (test code = BUN) 29 7-22 [facility]2022-07-29 12:01:00 Test Item Value Reference Range Interpretation Comments Creatinine Lvl (test code = Creatinine 0.98 0.50-1.40 Lvl) [facility]2022-07-29 12:01:00 Test Item Value Reference Range Interpretation Comments Sodium Lvl (test code = Sodium Lvl) 133 135-145 [place] 852652-07-29 12:01:00 Test Item Value Reference Range Interpretation Comments Potassium Lvl (test code = Potassium 2.7 3.5-5.1 Lvl) [facility]2022-07-29 12:01:00 Test Item Value Reference Range Interpretation Comments Chloride Lvl (test code = Chloride Lvl) 91 95-109 [place] 852652-07-29 12:01:00 Test Item Value Reference Range Interpretation Comments CO2 (test code = CO2) 33 24-32 [place] 852652-07-29 12:01:00 Test Item Value Reference Range Interpretation Comments AGAP (test code = AGAP) 11.7 10.0-20.0 [place] 852652-07-29 12:01:00 Test Item Value Reference Range Interpretation Comments Calcium Lvl (test code = Calcium Lvl) 7.9 8.5-10.5 [place] 852652-07-29 12:01:00 Test Item Value Reference Range Interpretation Comments eGFR (test code = eGFR) 56 [place] 852652-07-29 12:01:00 Test Item Value Reference Range Interpretation Comments Magnesium Lvl (test code = Magnesium 1.7 1.8-2.4 Lvl) [place] 852652-07-29 12:01:00 Test Item Value Reference Range Interpretation Comments Glucose Lvl (test code = Glucose Lvl) 104 70-99 [place] 852652-07-29 12:01:00 Test Item Value Reference Range Interpretation Comments BUN (test code = BUN) 29 7-22 [place] 852652-07-29 12:01:00 Test Item Value Reference Range Interpretation Comments Creatinine Lvl (test code = Creatinine 0.98 0.50-1.40 Lvl) [facility]2022-07-29 12:01:00 Test Item Value Reference Range Interpretation Comments Sodium Lvl (test code = Sodium Lvl) 133 135-145 [place] 852652-07-29 12:01:00 Test Item Value Reference Range Interpretation Comments Potassium Lvl (test code = Potassium 2.7 3.5-5.1 Lvl) [place] 852652-07-29 12:01:00 Test Item Value Reference Range Interpretation Comments Chloride Lvl (test code = Chloride Lvl) 91 95-109 [place] 852652-07-29 12:01:00 Test Item Value Reference Range Interpretation Comments CO2 (test code = CO2) 33 -32 [facility]2022-07-29 12:01:00 Test Item Value Reference Range Interpretation Comments AGAP (test code = AGAP) 11.7 10.0-20.0 [place] 852652-07-29 12:01:00 Test Item Value Reference Range Interpretation Comments Calcium Lvl (test code = Calcium Lvl) 7.9 8.5-10.5 [place] 852652-07-29 12:01:00 Test Item Value Reference Range Interpretation Comments eGFR (test code = eGFR) 56 [place] 852652-07-29 12:01:00 Test Item Value Reference Range Interpretation Comments Magnesium Lvl (test code = Magnesium 1.7 1.8-2.4 Lvl) [place] 852652-07-29 12:01:00 Test Item Value Reference Range Interpretation Comments Glucose Lvl (test code = Glucose Lvl) 104 70-99 [place] 852652-07-29 12:01:00 Test Item Value Reference Range Interpretation Comments BUN (test code = BUN) 29 7-22 [place] 852652-07-29 12:01:00 Test Item Value Reference Range Interpretation Comments Creatinine Lvl (test code = Creatinine 0.98 0.50-1.40 Lvl) [facility]2022-07-29 12:01:00 Test Item Value Reference Range Interpretation Comments Sodium Lvl (test code = Sodium Lvl) 133 135-145 [place] 852652-07-29 12:01:00 Test Item Value Reference Range Interpretation Comments Potassium Lvl (test code = Potassium 2.7 3.5-5.1 Lvl) [facility]2022-07-29 12:01:00 Test Item Value Reference Range Interpretation Comments Chloride Lvl (test code = Chloride Lvl) 91 95-109 [place] 852652-07-29 12:01:00 Test Item Value Reference Range Interpretation Comments CO2 (test code = CO2) 33 24-32 [facility]2022-07-29 12:01:00 Test Item Value Reference Range Interpretation Comments AGAP (test code = AGAP) 11.7 10.0-20.0 [place] 852652-07-29 12:01:00 Test Item Value Reference Range Interpretation Comments Calcium Lvl (test code = Calcium Lvl) 7.9 8.5-10.5 [place] 852652-07-29 12:01:00 Test Item Value Reference Range Interpretation Comments eGFR (test code = eGFR) 56 [place] 852652-07-29 12:01:00 Test Item Value Reference Range Interpretation Comments Magnesium Lvl (test code = Magnesium 1.7 1.8-2.4 Lvl) [place] 852652-07-29 12:01:00 Test Item Value Reference Range Interpretation Comments Glucose Lvl (test code = Glucose Lvl) 104 70-99 [place] 852652-07-29 12:01:00 Test Item Value Reference Range Interpretation Comments BUN (test code = BUN) 29 7-22 [place] 852652-07-29 12:01:00 Test Item Value Reference Range Interpretation Comments Creatinine Lvl (test code = Creatinine 0.98 0.50-1.40 Lvl) [facility]2022-07-29 12:01:00 Test Item Value Reference Range Interpretation Comments Sodium Lvl (test code = Sodium Lvl) 133 135-145 [facility]2022-07-29 12:01:00 Test Item Value Reference Range Interpretation Comments Potassium Lvl (test code = Potassium 2.7 3.5-5.1 Lvl) [facility]2022-07-29 12:01:00 Test Item Value Reference Range Interpretation Comments Chloride Lvl (test code = Chloride Lvl) 91 95-109 [facility]2022-07-29 12:01:00 Test Item Value Reference Range Interpretation Comments CO2 (test code = CO2) 33 24-32 [facility]2022-07-29 12:01:00 Test Item Value Reference Range Interpretation Comments AGAP (test code = AGAP) 11.7 10.0-20.0 [place] 852652-07-29 12:01:00 Test Item Value Reference Range Interpretation Comments Calcium Lvl (test code = Calcium Lvl) 7.9 8.5-10.5 [place] 852652-07-29 12:01:00 Test Item Value Reference Range Interpretation Comments eGFR (test code = eGFR) 56 [facility]2022-07-29 12:01:00 Test Item Value Reference Range Interpretation Comments Magnesium Lvl (test code = Magnesium 1.7 1.8-2.4 Lvl) [facility]2022-07-29 12:01:00 Test Item Value Reference Range Interpretation Comments Glucose Lvl (test code = Glucose Lvl) 104 70-99 [place] 852652-07-29 12:01:00 Test Item Value Reference Range Interpretation Comments BUN (test code = BUN) 06-10 [facility]2022-07-29 12:01:00 Test Item Value Reference Range Interpretation Comments Creatinine Lvl (test code = Creatinine 0.98 0.50-1.40 Lvl) [facility]2022-07-29 12:01:00 Test Item Value Reference Range Interpretation Comments Sodium Lvl (test code = Sodium Lvl) 133 135-145 [facility]2022-07-29 12:01:00 Test Item Value Reference Range Interpretation Comments Potassium Lvl (test code = Potassium 2.7 3.5-5.1 Lvl) [facility]2022-07-29 12:01:00 Test Item Value Reference Range Interpretation Comments Chloride Lvl (test code = Chloride Lvl) 91 95-109 [facility] [id number] 12:01:00 Test Item Value Reference Range Interpretation Comments CO2 (test code = CO2) 33 24-32 [facility]2022-07-29 12:01:00 Test Item Value Reference Range Interpretation Comments AGAP (test code = AGAP) 11.7 10.0-20.0 [facility] [id number] 12:01:00 Test Item Value Reference Range Interpretation Comments Calcium Lvl (test code = Calcium Lvl) 7.9 8.5-10.5 [facility] [id number] 12:01:00 Test Item Value Reference Range Interpretation Comments eGFR (test code = eGFR) 56 [facility]2022-07-29 12:01:00 Test Item Value Reference Range Interpretation Comments Magnesium Lvl (test code = Magnesium 1.7 1.8-2.4 Lvl) [facility]2022-07-29 12:01:00 Test Item Value Reference Range Interpretation Comments Glucose Lvl (test code = Glucose Lvl) 104 70-99 [facility]2022-07-29 12:01:00 Test Item Value Reference Range Interpretation Comments BUN (test code = BUN) 29 - [facility]2022-07-29 12:01:00 Test Item Value Reference Range Interpretation Comments Creatinine Lvl (test code = Creatinine 0.98 0.50-1.40 Lvl) [place] 852652-07-29 12:01:00 Test Item Value Reference Range Interpretation Comments Sodium Lvl (test code = Sodium Lvl) 133 135-145 [place] 852652-07-29 12:01:00 Test Item Value Reference Range Interpretation Comments Potassium Lvl (test code = Potassium 2.7 3.5-5.1 Lvl) [place] 852652-07-29 12:01:00 Test Item Value Reference Range Interpretation Comments Chloride Lvl (test code = Chloride Lvl) 91 95-109 [place] 852652-07-29 12:01:00 Test Item Value Reference Range Interpretation Comments CO2 (test code = CO2) 33 24-32 [place] 852652-07-29 12:01:00 Test Item Value Reference Range Interpretation Comments AGAP (test code = AGAP) 11.7 10.0-20.0 [place] 852652-07-29 12:01:00 Test Item Value Reference Range Interpretation Comments Calcium Lvl (test code = Calcium Lvl) 7.9 8.5-10.5 [place] 852652-07-29 12:01:00 Test Item Value Reference Range Interpretation Comments eGFR (test code = eGFR) 56 [place] 852652-07-29 12:01:00 Test Item Value Reference Range Interpretation Comments Magnesium Lvl (test code = Magnesium 1.7 1.8-2.4 Lvl) [place] 852652-07-29 12:01:00 Test Item Value Reference Range Interpretation Comments Glucose Lvl (test code = Glucose Lvl) 104 70-99 [facility]2022-07-29 12:01:00 Test Item Value Reference Range Interpretation Comments BUN (test code = BUN) 29 7-22 [place] 852652-07-29 12:01:00 Test Item Value Reference Range Interpretation Comments Creatinine Lvl (test code = Creatinine 0.98 0.50-1.40 Lvl) [facility]2022-07-29 12:01:00 Test Item Value Reference Range Interpretation Comments Sodium Lvl (test code = Sodium Lvl) 133 135-145 [place] 852652-07-29 12:01:00 Test Item Value Reference Range Interpretation Comments Potassium Lvl (test code = Potassium 2.7 3.5-5.1 Lvl) [place] 852652-07-29 12:01:00 Test Item Value Reference Range Interpretation Comments Chloride Lvl (test code = Chloride Lvl) 91 95-109 [place] 852652-07-29 12:01:00 Test Item Value Reference Range Interpretation Comments CO2 (test code = CO2) 33 24-32 [place] 852652-07-29 12:01:00 Test Item Value Reference Range Interpretation Comments AGAP (test code = AGAP) 11.7 10.0-20.0 [place] 852652-07-29 12:01:00 Test Item Value Reference Range Interpretation Comments Calcium Lvl (test code = Calcium Lvl) 7.9 8.5-10.5 [place] 852652-07-29 12:01:00 Test Item Value Reference Range Interpretation Comments eGFR (test code = eGFR) 56 [place] 852652-07-29 12:01:00 Test Item Value Reference Range Interpretation Comments Magnesium Lvl (test code = Magnesium 1.7 1.8-2.4 Lvl) [place] 852652-07-27 09:07:00 Test Item Value Reference Range Interpretation Comments eGFR (test code = eGFR) 59 [place] 778932-07-27 09:07:00 Test Item Value Reference Range Interpretation Comments WBC (test code = WBC) 7.2 3.7-10.4 [place] 778932-07-27 09:07:00 Test Item Value Reference Range Interpretation Comments RBC (test code = RBC) 3.06 4.20-5.40 [place] 778932-07-27 09:07:00 Test Item Value Reference Range Interpretation Comments Hgb (test code = Hgb) 7.4 12.0-16.0 [place] 12581-07-27 09:07:00 Test Item Value Reference Range Interpretation Comments Hct (test code = Hct) 22.5 36.0-48.0 [place] 12581-07-27 09:07:00 Test Item Value Reference Range Interpretation Comments MCV (test code = MCV) 73.6 80.0-98.0 [place] 12581-07-27 09:07:00 Test Item Value Reference Range Interpretation Comments MCH (test code = MCH) 24.2 pg 27.0-31.0 [place] 778932-07-27 09:07:00 Test Item Value Reference Range Interpretation Comments MCHC (test code = MCHC) 32.9 32.0-36.0 [place] 778932-07-27 09:07:00 Test Item Value Reference Range Interpretation Comments RDW (test code = RDW) 20.8 11.5-14.5 [place] 778932-07-27 09:07:00 Test Item Value Reference Range Interpretation Comments Platelet (test code = Platelet) 286 133-450 [facility]:07:00 Test Item Value Reference Range Interpretation Comments MPV (test code = MPV) 7.4 7.4-10.4 [place] 778932-07-27 09:07:00 Test Item Value Reference Range Interpretation Comments Segs (test code = Segs) 73.8 45.0-75.0 [place] 778932-07-27 09:07:00 Test Item Value Reference Range Interpretation Comments Lymphocytes (test code = Lymphocytes) 17.2 20.0-40.0 [place] 778932-07-27 09:07:00 Test Item Value Reference Range Interpretation Comments Monocytes (test code = Monocytes) 8.8 2.0-12.0 [id number] 09:07:00 Test Item Value Reference Range Interpretation Comments Neutrophils # (test code = Neutrophils 5.3 1.5-8.1 #) [id number] 09:07:00 Test Item Value Reference Range Interpretation Comments Lymphocytes # (test code = Lymphocytes 1.2 1.0-5.5 #) [place] 778932-07-27 09:07:00 Test Item Value Reference Range Interpretation Comments Monocytes # (test code 0.6 See_Comment [Aut omated message] The = Monocytes #) system which generated this result tra nsmitted reference range : <=0.8. The reference r hugo was not used to int erpret this result as normal/abnormal . [place] 778932-07-27 09:07:00 Test Item Value Reference Range Interpretation Comments Microcyte (test code = 1+ *ABN*(06/15/22 Microcyte) 4:07 AM) [place] 852652-07-27 09:07:00 Test Item Value Reference Range Interpretation Comments Glucose Lvl (test code = Glucose Lvl) 108 70-99 [place] 852652-07-27 09:07:00 Test Item Value Reference Range Interpretation Comments BUN (test code = BUN) 29 - [place] 852652-07-27 09:07:00 Test Item Value Reference Range Interpretation Comments Creatinine Lvl (test code = Creatinine 0.94 0.50-1.40 Lvl) [place] 852652-07-27 09:07:00 Test Item Value Reference Range Interpretation Comments Sodium Lvl (test code = Sodium Lvl) 131 135-145 [place] 852652-07-27 09:07:00 Test Item Value Reference Range Interpretation Comments Potassium Lvl (test code = Potassium 3.2 3.5-5.1 Lvl) [place] 852652-07-27 09:07:00 Test Item Value Reference Range Interpretation Comments Chloride Lvl (test code = Chloride Lvl) 93 95-109 [place] 852652-07-27 09:07:00 Test Item Value Reference Range Interpretation Comments CO2 (test code = CO2) 31 24-32 [place] 852652-07-27 09:07:00 Test Item Value Reference Range Interpretation Comments Calcium Lvl (test code = Calcium Lvl) 8.0 8.5-10.5 [place] 852652-07-27 09:07:00 Test Item Value Reference Range Interpretation Comments Total Protein (test code = Total 5.7 6.4-8.4 Protein) [place] 852652-07-27 09:07:00 Test Item Value Reference Range Interpretation Comments Albumin Lvl (test code = Albumin Lvl) 2.6 3.5-5.0 [place] 852652-07-27 09:07:00 Test Item Value Reference Range Interpretation Comments ALT (test code = ALT) 18 See_Comment [Auto mated message] The system which ge nerated this result transmit lavon reference range : <=65. The reference range was not used to interpr et this result as dionne l/abnormal. [place] 852652-07-27 09:07:00 Test Item Value Reference Range Interpretation Comments AST (test code = AST) 28 See_Comment [Auto mated message] The system which ge nerated this result transmit lavon reference range : <=37. The reference range was not used to interpr et this result as dionne l/abnormal. [facility] [id number] 09:07:00 Test Item Value Reference Range Interpretation Comments Alk Phos (test code = Alk Phos) 44 39-136 [place] 852652-07-27 09:07:00 Test Item Value Reference Range Interpretation Comments Bili Total (test code = Bili Total) 1.1 0.2-1.3 [place] 852652-07-27 09:07:00 Test Item Value Reference Range Interpretation Comments AGAP (test code = AGAP) 10.2 10.0-20.0 [place] 852652-07-27 09:07:00 Test Item Value Reference Range Interpretation Comments B/C Ratio (test code = B/C Ratio) 31 1 6-25 [place] 852652-07-27 09:07:00 Test Item Value Reference Range Interpretation Comments Globulin (test code = Globulin) 3.1 2.7-4.2 [place] 852652-07-27 09:07:00 Test Item Value Reference Range Interpretation Comments A/G Ratio (test code = A/G Ratio) 0.8 1 0.7-1.6 [facility]2022-07-27 09:07:00 Test Item Value Reference Range Interpretation Comments Glucose Lvl (test code = Glucose Lvl) 108 70-99 [place] 852652-07-27 09:07:00 Test Item Value Reference Range Interpretation Comments BUN (test code = BUN) 29 7-22 [place] 852652-07-27 09:07:00 Test Item Value Reference Range Interpretation Comments Creatinine Lvl (test code = Creatinine 0.94 0.50-1.40 Lvl) [facility]2022-07-27 09:07:00 Test Item Value Reference Range Interpretation Comments Sodium Lvl (test code = Sodium Lvl) 131 135-145 [place] 852652-07-27 09:07:00 Test Item Value Reference Range Interpretation Comments Potassium Lvl (test code = Potassium 3.2 3.5-5.1 Lvl) [place] 852652-07-27 09:07:00 Test Item Value Reference Range Interpretation Comments Chloride Lvl (test code = Chloride Lvl) 93 95-109 [place] 852652-07-27 09:07:00 Test Item Value Reference Range Interpretation Comments CO2 (test code = CO2) 31 24-32 [place] 852652-07-27 09:07:00 Test Item Value Reference Range Interpretation Comments Calcium Lvl (test code = Calcium Lvl) 8.0 8.5-10.5 [facility] [id number] 09:07:00 Test Item Value Reference Range Interpretation Comments Total Protein (test code = Total 5.7 6.4-8.4 Protein) [place] 852652-07-27 09:07:00 Test Item Value Reference Range Interpretation Comments Albumin Lvl (test code = Albumin Lvl) 2.6 3.5-5.0 [facility] [id number] 09:07:00 Test Item Value Reference Range Interpretation Comments ALT (test code = ALT) 18 See_Comment [Auto mated message] The system which ge nerated this result transmit lavon reference range : <=65. The reference range was not used to interpr et this result as dionne l/abnormal. [facility] [id number] 09:07:00 Test Item Value Reference Range Interpretation Comments AST (test code = AST) 28 See_Comment [Auto mated message] The system which ge nerated this result transmit lavon reference range : <=37. The reference range was not used to interpr et this result as dionne l/abnormal. [place] 852652-07-27 09:07:00 Test Item Value Reference Range Interpretation Comments Alk Phos (test code = Alk Phos) 44 39-136 [facility] [id number] 09:07:00 Test Item Value Reference Range Interpretation Comments Bili Total (test code = Bili Total) 1.1 0.2-1.3 [place] 852652-07-27 09:07:00 Test Item Value Reference Range Interpretation Comments AGAP (test code = AGAP) 10.2 10.0-20.0 [facility] [id number] 09:07:00 Test Item Value Reference Range Interpretation Comments B/C Ratio (test code = B/C Ratio) 31 1 6-25 [place] 852652-07-27 09:07:00 Test Item Value Reference Range Interpretation Comments Globulin (test code = Globulin) 3.1 2.7-4.2 [place] 852652-07-27 09:07:00 Test Item Value Reference Range Interpretation Comments A/G Ratio (test code = A/G Ratio) 0.8 1 0.7-1.6 [facility]2022-07-27 09:07:00 Test Item Value Reference Range Interpretation Comments eGFR (test code = eGFR) 59 [place] 778932-07-27 09:07:00 Test Item Value Reference Range Interpretation Comments WBC (test code = WBC) 7.2 3.7-10.4 [place] 778932-07-27 09:07:00 Test Item Value Reference Range Interpretation Comments RBC (test code = RBC) 3.06 4.20-5.40 [place] 778932-07-27 09:07:00 Test Item Value Reference Range Interpretation Comments Hgb (test code = Hgb) 7.4 12.0-16.0 [place] 778932-07-27 09:07:00 Test Item Value Reference Range Interpretation Comments Hct (test code = Hct) 22.5 36.0-48.0 [place] 778932-07-27 09:07:00 Test Item Value Reference Range Interpretation Comments MCV (test code = MCV) 73.6 80.0-98.0 [place] 778932-07-27 09:07:00 Test Item Value Reference Range Interpretation Comments MCH (test code = MCH) 24.2 pg 27.0-31.0 [place] 778932-07-27 09:07:00 Test Item Value Reference Range Interpretation Comments MCHC (test code = MCHC) 32.9 32.0-36.0 [place] 778932-07-27 09:07:00 Test Item Value Reference Range Interpretation Comments RDW (test code = RDW) 20.8 11.5-14.5 [place] 778932-07-27 09:07:00 Test Item Value Reference Range Interpretation Comments Platelet (test code = Platelet) 286 133-450 [id number] 09:07:00 Test Item Value Reference Range Interpretation Comments MPV (test code = MPV) 7.4 7.4-10.4 [place] 778932-07-27 09:07:00 Test Item Value Reference Range Interpretation Comments Segs (test code = Segs) 73.8 45.0-75.0 [place] 778932-07-27 09:07:00 Test Item Value Reference Range Interpretation Comments Lymphocytes (test code = Lymphocytes) 17.2 20.0-40.0 [place] 778932-07-27 09:07:00 Test Item Value Reference Range Interpretation Comments Monocytes (test code = Monocytes) 8.8 2.0-12.0 [place] 778932-07-27 09:07:00 Test Item Value Reference Range Interpretation Comments Neutrophils # (test code = Neutrophils 5.3 1.5-8.1 #) [place] 778932-07-27 09:07:00 Test Item Value Reference Range Interpretation Comments Lymphocytes # (test code = Lymphocytes 1.2 1.0-5.5 #) [place] 778932-07-27 09:07:00 Test Item Value Reference Range Interpretation Comments Monocytes # (test code 0.6 See_Comment [Aut omated message] The = Monocytes #) system which generated this result tra nsmitted reference range : <=0.8. The reference r hugo was not used to int erpret this result as normal/abnormal . [facility] [id number] 09:07:00 Test Item Value Reference Range Interpretation Comments Microcyte (test code = 1+ *ABN*(06/15/22 Microcyte) 4:07 AM) [facility]2022-07-27 09:07:00 Test Item Value Reference Range Interpretation Comments Glucose Lvl (test code = Glucose Lvl) 108 70-99 [place] 852652-07-27 09:07:00 Test Item Value Reference Range Interpretation Comments BUN (test code = BUN) 29 7-22 [place] 852652-07-27 09:07:00 Test Item Value Reference Range Interpretation Comments Creatinine Lvl (test code = Creatinine 0.94 0.50-1.40 Lvl) [place] 852652-07-27 09:07:00 Test Item Value Reference Range Interpretation Comments Sodium Lvl (test code = Sodium Lvl) 131 135-145 [place] [address]-07-27 09:07:00 Test Item Value Reference Range Interpretation Comments Potassium Lvl (test code = Potassium 3.2 3.5-5.1 Lvl) [place] [address]-07-27 09:07:00 Test Item Value Reference Range Interpretation Comments Chloride Lvl (test code = Chloride Lvl) 93 95-109 [place] [address]-07-27 09:07:00 Test Item Value Reference Range Interpretation Comments CO2 (test code = CO2) 31 24-32 [place] 852652-07-27 09:07:00 Test Item Value Reference Range Interpretation Comments Calcium Lvl (test code = Calcium Lvl) 8.0 8.5-10.5 [place] [address]-07-27 09:07:00 Test Item Value Reference Range Interpretation Comments Total Protein (test code = Total 5.7 6.4-8.4 Protein) [place] [address]-07-27 09:07:00 Test Item Value Reference Range Interpretation Comments Albumin Lvl (test code = Albumin Lvl) 2.6 3.5-5.0 [place] [address]-07-27 09:07:00 Test Item Value Reference Range Interpretation Comments ALT (test code = ALT) 18 See_Comment [Auto mated message] The system which ge nerated this result transmit lavon reference range : <=65. The reference range was not used to interpr et this result as dionne l/abnormal. [place] [address]-07-27 09:07:00 Test Item Value Reference Range Interpretation Comments AST (test code = AST) 28 See_Comment [Auto mated message] The system which ge nerated this result transmit lavon reference range : <=37. The reference range was not used to interpr et this result as dionne l/abnormal. [place] [address]-07-27 09:07:00 Test Item Value Reference Range Interpretation Comments Alk Phos (test code = Alk Phos) 44 39-136 [place] 852652-07-27 09:07:00 Test Item Value Reference Range Interpretation Comments Bili Total (test code = Bili Total) 1.1 0.2-1.3 [place] 852652-07-27 09:07:00 Test Item Value Reference Range Interpretation Comments AGAP (test code = AGAP) 10.2 10.0-20.0 [place] 852652-07-27 09:07:00 Test Item Value Reference Range Interpretation Comments B/C Ratio (test code = B/C Ratio) 31 1 6-25 [place] 852652-07-27 09:07:00 Test Item Value Reference Range Interpretation Comments Globulin (test code = Globulin) 3.1 2.7-4.2 [place] 852652-07-27 09:07:00 Test Item Value Reference Range Interpretation Comments A/G Ratio (test code = A/G Ratio) 0.8 1 0.7-1.6 [place] 852652-07-27 09:07:00 Test Item Value Reference Range Interpretation Comments eGFR (test code = eGFR) 59 [place] 778932-07-27 09:07:00 Test Item Value Reference Range Interpretation Comments WBC (test code = WBC) 7.2 3.7-10.4 [place] 778932-07-27 09:07:00 Test Item Value Reference Range Interpretation Comments RBC (test code = RBC) 3.06 4.20-5.40 [place] 778932-07-27 09:07:00 Test Item Value Reference Range Interpretation Comments Hgb (test code = Hgb) 7.4 12.0-16.0 [place] 778932-07-27 09:07:00 Test Item Value Reference Range Interpretation Comments Hct (test code = Hct) 22.5 36.0-48.0 [place] 778932-07-27 09:07:00 Test Item Value Reference Range Interpretation Comments MCV (test code = MCV) 73.6 80.0-98.0 [place] [address]-07-27 09:07:00 Test Item Value Reference Range Interpretation Comments MCH (test code = MCH) 24.2 pg 27.0-31.0 [place] 778932-07-27 09:07:00 Test Item Value Reference Range Interpretation Comments MCHC (test code = MCHC) 32.9 32.0-36.0 [place] 778932-07-27 09:07:00 Test Item Value Reference Range Interpretation Comments RDW (test code = RDW) 20.8 11.5-14.5 [place] 778932-07-27 09:07:00 Test Item Value Reference Range Interpretation Comments Platelet (test code = Platelet) 286 133-450 [place] 778932-07-27 09:07:00 Test Item Value Reference Range Interpretation Comments MPV (test code = MPV) 7.4 7.4-10.4 [place] 778932-07-27 09:07:00 Test Item Value Reference Range Interpretation Comments Segs (test code = Segs) 73.8 45.0-75.0 [place] 778932-07-27 09:07:00 Test Item Value Reference Range Interpretation Comments Lymphocytes (test code = Lymphocytes) 17.2 20.0-40.0 [place] 778932-07-27 09:07:00 Test Item Value Reference Range Interpretation Comments Monocytes (test code = Monocytes) 8.8 2.0-12.0 [facility] [id number] 09:07:00 Test Item Value Reference Range Interpretation Comments Neutrophils # (test code = Neutrophils 5.3 1.5-8.1 #) [facility] CenterGdahzziFRWFMUFEMK6224-58-64 09:07:00 Test Item Value Reference Range Interpretation Comments Lymphocytes # (test code = Lymphocytes 1.2 1.0-5.5 #) [facility] CenterNthvouoWBSKWBGNIK5708-50-68 09:07:00 Test Item Value Reference Range Interpretation Comments Monocytes # (test code 0.6 See_Comment [Aut omated message] The = Monocytes #) system which generated this result tra nsmitted reference range : <=0.8. The reference r hugo was not used to int erpret this result as normal/abnormal . [facility] CenterZspwzjpPOMQZSRJUJ5009-87-91 09:07:00 Test Item Value Reference Range Interpretation Comments Microcyte (test code = 1+ *ABN*(06/15/22 Microcyte) 4:07 AM) [facility]2022-07-27 09:07:00 Test Item Value Reference Range Interpretation Comments Glucose Lvl (test code = Glucose Lvl) 108 70-99 [place] 852652-07-27 09:07:00 Test Item Value Reference Range Interpretation Comments BUN (test code = BUN) 29 7-22 [place] 852652-07-27 09:07:00 Test Item Value Reference Range Interpretation Comments Creatinine Lvl (test code = Creatinine 0.94 0.50-1.40 Lvl) [place] 852652-07-27 09:07:00 Test Item Value Reference Range Interpretation Comments Sodium Lvl (test code = Sodium Lvl) 131 135-145 [place] 852652-07-27 09:07:00 Test Item Value Reference Range Interpretation Comments Potassium Lvl (test code = Potassium 3.2 3.5-5.1 Lvl) [place] 852652-07-27 09:07:00 Test Item Value Reference Range Interpretation Comments Chloride Lvl (test code = Chloride Lvl) 93 95-109 [place] 852652-07-27 09:07:00 Test Item Value Reference Range Interpretation Comments CO2 (test code = CO2) 31 24-32 [place] 852652-07-27 09:07:00 Test Item Value Reference Range Interpretation Comments Calcium Lvl (test code = Calcium Lvl) 8.0 8.5-10.5 [place] 852652-07-27 09:07:00 Test Item Value Reference Range Interpretation Comments Total Protein (test code = Total 5.7 6.4-8.4 Protein) [place] 852652-07-27 09:07:00 Test Item Value Reference Range Interpretation Comments Albumin Lvl (test code = Albumin Lvl) 2.6 3.5-5.0 [place] 852652-07-27 09:07:00 Test Item Value Reference Range Interpretation Comments ALT (test code = ALT) 18 See_Comment [Auto mated message] The system which ge nerated this result transmit lavon reference range : <=65. The reference range was not used to interpr et this result as dionne l/abnormal. [place] 852652-07-27 09:07:00 Test Item Value Reference Range Interpretation Comments AST (test code = AST) 28 See_Comment [Auto mated message] The system which ge nerated this result transmit lavon reference range : <=37. The reference range was not used to interpr et this result as dionne l/abnormal. [facility]2022-07-27 09:07:00 Test Item Value Reference Range Interpretation Comments Alk Phos (test code = Alk Phos) 44 39-136 [place] 852652-07-27 09:07:00 Test Item Value Reference Range Interpretation Comments Bili Total (test code = Bili Total) 1.1 0.2-1.3 [place] 852652-07-27 09:07:00 Test Item Value Reference Range Interpretation Comments AGAP (test code = AGAP) 10.2 10.0-20.0 [place] 852652-07-27 09:07:00 Test Item Value Reference Range Interpretation Comments B/C Ratio (test code = B/C Ratio) 31 1 6-25 [place] 852652-07-27 09:07:00 Test Item Value Reference Range Interpretation Comments Globulin (test code = Globulin) 3.1 2.7-4.2 [place] 852652-07-27 09:07:00 Test Item Value Reference Range Interpretation Comments A/G Ratio (test code = A/G Ratio) 0.8 1 0.7-1.6 [place] 852652-07-27 09:07:00 Test Item Value Reference Range Interpretation Comments eGFR (test code = eGFR) 59 [facility] CenterObrlexbUFRWYGTSWN8056-81-03 09:07:00 Test Item Value Reference Range Interpretation Comments WBC (test code = WBC) 7.2 3.7-10.4 [place] 778932-07-27 09:07:00 Test Item Value Reference Range Interpretation Comments RBC (test code = RBC) 3.06 4.20-5.40 [place] 778932-07-27 09:07:00 Test Item Value Reference Range Interpretation Comments Hgb (test code = Hgb) 7.4 12.0-16.0 [place] 778932-07-27 09:07:00 Test Item Value Reference Range Interpretation Comments Hct (test code = Hct) 22.5 36.0-48.0 [place] 778932-07-27 09:07:00 Test Item Value Reference Range Interpretation Comments MCV (test code = MCV) 73.6 80.0-98.0 [place] 778932-07-27 09:07:00 Test Item Value Reference Range Interpretation Comments MCH (test code = MCH) 24.2 pg 27.0-31.0 [facility] CenterKhcnlvySYWWPXKBJA1731-06-64 09:07:00 Test Item Value Reference Range Interpretation Comments MCHC (test code = MCHC) 32.9 32.0-36.0 [facility] CenterRjalglwQZDLAEDBKP5109-99-90 09:07:00 Test Item Value Reference Range Interpretation Comments RDW (test code = RDW) 20.8 11.5-14.5 [facility] CenterVlthqguNBIRJPBZEF4159-97-92 09:07:00 Test Item Value Reference Range Interpretation Comments Platelet (test code = Platelet) 286 133-450 [facility] CenterZrwlaavPOPAZYIXGR8875-94-77 09:07:00 Test Item Value Reference Range Interpretation Comments MPV (test code = MPV) 7.4 7.4-10.4 [place] 778932-07-27 09:07:00 Test Item Value Reference Range Interpretation Comments Segs (test code = Segs) 73.8 45.0-75.0 [facility] CenterJmnupcvPLEVRQLFFJ4081-55-02 09:07:00 Test Item Value Reference Range Interpretation Comments Lymphocytes (test code = Lymphocytes) 17.2 20.0-40.0 [facility] CenterFdgmmdrNVIPAXLWEH5265-19-97 09:07:00 Test Item Value Reference Range Interpretation Comments Monocytes (test code = Monocytes) 8.8 2.0-12.0 [facility] CenterMerkqyvEOOVZLAXDW4748-38-30 09:07:00 Test Item Value Reference Range Interpretation Comments Neutrophils # (test code = Neutrophils 5.3 1.5-8.1 #) [facility] CenterCvmgxoxHMBSIRVTFJ5184-67-68 09:07:00 Test Item Value Reference Range Interpretation Comments Lymphocytes # (test code = Lymphocytes 1.2 1.0-5.5 #) [place] 778932-07-27 09:07:00 Test Item Value Reference Range Interpretation Comments Monocytes # (test code 0.6 See_Comment [Aut omated message] The = Monocytes #) system which generated this result tra nsmitted reference range : <=0.8. The reference r hugo was not used to int erpret this result as normal/abnormal . [place] 778932-07-27 09:07:00 Test Item Value Reference Range Interpretation Comments Microcyte (test code = 1+ *ABN*(06/15/22 Microcyte) 4:07 AM) [place] 852652-07-27 09:07:00 Test Item Value Reference Range Interpretation Comments Glucose Lvl (test code = Glucose Lvl) 108 70-99 [place] 852652-07-27 09:07:00 Test Item Value Reference Range Interpretation Comments BUN (test code = BUN) 29 - [place] 852652-07-27 09:07:00 Test Item Value Reference Range Interpretation Comments Creatinine Lvl (test code = Creatinine 0.94 0.50-1.40 Lvl) [place] 852652-07-27 09:07:00 Test Item Value Reference Range Interpretation Comments Sodium Lvl (test code = Sodium Lvl) 131 135-145 [place] 852652-07-27 09:07:00 Test Item Value Reference Range Interpretation Comments Potassium Lvl (test code = Potassium 3.2 3.5-5.1 Lvl) [place] 852652-07-27 09:07:00 Test Item Value Reference Range Interpretation Comments Chloride Lvl (test code = Chloride Lvl) 93 95-109 [place] 852652-07-27 09:07:00 Test Item Value Reference Range Interpretation Comments CO2 (test code = CO2) 31 24-32 [place] 852652-07-27 09:07:00 Test Item Value Reference Range Interpretation Comments Calcium Lvl (test code = Calcium Lvl) 8.0 8.5-10.5 [place] 852652-07-27 09:07:00 Test Item Value Reference Range Interpretation Comments Total Protein (test code = Total 5.7 6.4-8.4 Protein) [place] 852652-07-27 09:07:00 Test Item Value Reference Range Interpretation Comments Albumin Lvl (test code = Albumin Lvl) 2.6 3.5-5.0 [place] 852652-07-27 09:07:00 Test Item Value Reference Range Interpretation Comments ALT (test code = ALT) 18 See_Comment [Auto mated message] The system which ge nerated this result transmit lavon reference range : <=65. The reference range was not used to interpr et this result as dionne l/abnormal. [place] 852652-07-27 09:07:00 Test Item Value Reference Range Interpretation Comments AST (test code = AST) 28 See_Comment [Auto mated message] The system which ge nerated this result transmit lavon reference range : <=37. The reference range was not used to interpr et this result as dionne l/abnormal. [place] 852652-07-27 09:07:00 Test Item Value Reference Range Interpretation Comments Alk Phos (test code = Alk Phos) 44 39-136 [place] 852652-07-27 09:07:00 Test Item Value Reference Range Interpretation Comments Bili Total (test code = Bili Total) 1.1 0.2-1.3 [place] [address]-07-27 09:07:00 Test Item Value Reference Range Interpretation Comments AGAP (test code = AGAP) 10.2 10.0-20.0 [place] 852652-07-27 09:07:00 Test Item Value Reference Range Interpretation Comments B/C Ratio (test code = B/C Ratio) 31 1 6-25 [place] [address]-07-27 09:07:00 Test Item Value Reference Range Interpretation Comments Globulin (test code = Globulin) 3.1 2.7-4.2 [place] 852652-07-27 09:07:00 Test Item Value Reference Range Interpretation Comments A/G Ratio (test code = A/G Ratio) 0.8 1 0.7-1.6 [place] 852652-07-27 09:07:00 Test Item Value Reference Range Interpretation Comments eGFR (test code = eGFR) 59 [place] 778932-07-27 09:07:00 Test Item Value Reference Range Interpretation Comments WBC (test code = WBC) 7.2 3.7-10.4 [place] [address]-07-27 09:07:00 Test Item Value Reference Range Interpretation Comments RBC (test code = RBC) 3.06 4.20-5.40 [place] [address]-07-27 09:07:00 Test Item Value Reference Range Interpretation Comments Hgb (test code = Hgb) 7.4 12.0-16.0 [place] [address]-07-27 09:07:00 Test Item Value Reference Range Interpretation Comments Hct (test code = Hct) 22.5 36.0-48.0 [place] 778932-07-27 09:07:00 Test Item Value Reference Range Interpretation Comments MCV (test code = MCV) 73.6 80.0-98.0 [place] 778932-07-27 09:07:00 Test Item Value Reference Range Interpretation Comments MCH (test code = MCH) 24.2 pg 27.0-31.0 [place] 778932-07-27 09:07:00 Test Item Value Reference Range Interpretation Comments MCHC (test code = MCHC) 32.9 32.0-36.0 [place] 778932-07-27 09:07:00 Test Item Value Reference Range Interpretation Comments RDW (test code = RDW) 20.8 11.5-14.5 [place] 778932-07-27 09:07:00 Test Item Value Reference Range Interpretation Comments Platelet (test code = Platelet) 286 133-450 [facility] CenterGozlhdhUTXWNLRLSG4675-89-68 09:07:00 Test Item Value Reference Range Interpretation Comments MPV (test code = MPV) 7.4 7.4-10.4 [place] 778932-07-27 09:07:00 Test Item Value Reference Range Interpretation Comments Segs (test code = Segs) 73.8 45.0-75.0 [place] 778932-07-27 09:07:00 Test Item Value Reference Range Interpretation Comments Lymphocytes (test code = Lymphocytes) 17.2 20.0-40.0 [place] 778932-07-27 09:07:00 Test Item Value Reference Range Interpretation Comments Monocytes (test code = Monocytes) 8.8 2.0-12.0 [place] 778932-07-27 09:07:00 Test Item Value Reference Range Interpretation Comments Neutrophils # (test code = Neutrophils 5.3 1.5-8.1 #) [facility] CenterRuqfnfzRNYEADNBNF6151-16-83 09:07:00 Test Item Value Reference Range Interpretation Comments Lymphocytes # (test code = Lymphocytes 1.2 1.0-5.5 #) [facility] CenterXckqavpBPOOFGAESK0269-25-46 09:07:00 Test Item Value Reference Range Interpretation Comments Monocytes # (test code 0.6 See_Comment [Aut omated message] The = Monocytes #) system which generated this result tra nsmitted reference range : <=0.8. The reference r hugo was not used to int erpret this result as normal/abnormal . [facility] CenterOolgqzuXPQJAVKHVJ0148-52-96 09:07:00 Test Item Value Reference Range Interpretation Comments Microcyte (test code = 1+ *ABN*(06/15/22 Microcyte) 4:07 AM) [place] 852652-07-27 09:07:00 Test Item Value Reference Range Interpretation Comments Glucose Lvl (test code = Glucose Lvl) 108 70-99 [place] 852652-07-27 09:07:00 Test Item Value Reference Range Interpretation Comments BUN (test code = BUN) 29 - [place] [place] 852652-07-27 09:07:00 Test Item Value Reference Range Interpretation Comments Creatinine Lvl (test code = Creatinine 0.94 0.50-1.40 Lvl) [place] 852652-07-27 09:07:00 Test Item Value Reference Range Interpretation Comments Sodium Lvl (test code = Sodium Lvl) 131 135-145 [place] 852652-07-27 09:07:00 Test Item Value Reference Range Interpretation Comments Potassium Lvl (test code = Potassium 3.2 3.5-5.1 Lvl) [place] 852652-07-27 09:07:00 Test Item Value Reference Range Interpretation Comments Chloride Lvl (test code = Chloride Lvl) 93 95-109 [place] 852652-07-27 09:07:00 Test Item Value Reference Range Interpretation Comments CO2 (test code = CO2) 31 24-32 [place] 852652-07-27 09:07:00 Test Item Value Reference Range Interpretation Comments Calcium Lvl (test code = Calcium Lvl) 8.0 8.5-10.5 [place] 852652-07-27 09:07:00 Test Item Value Reference Range Interpretation Comments Total Protein (test code = Total 5.7 6.4-8.4 Protein) [place] 852652-07-27 09:07:00 Test Item Value Reference Range Interpretation Comments Albumin Lvl (test code = Albumin Lvl) 2.6 3.5-5.0 [facility] [id number] 09:07:00 Test Item Value Reference Range Interpretation Comments ALT (test code = ALT) 18 See_Comment [Auto mated message] The system which ge nerated this result transmit lavon reference range : <=65. The reference range was not used to interpr et this result as dionne l/abnormal. [facility] [employer] [id number] 09:07:00 Test Item Value Reference Range Interpretation Comments AST (test code = AST) 28 See_Comment [Auto mated message] The system which ge nerated this result transmit lavon reference range : <=37. The reference range was not used to interpr et this result as dionne l/abnormal. [facility] [employer] [id number] 09:07:00 Test Item Value Reference Range Interpretation Comments Alk Phos (test code = Alk Phos) 44 39-136 [facility] [employer] [id number] 09:07:00 Test Item Value Reference Range Interpretation Comments Bili Total (test code = Bili Total) 1.1 0.2-1.3 [facility] [employer] [id number] 09:07:00 Test Item Value Reference Range Interpretation Comments AGAP (test code = AGAP) 10.2 10.0-20.0 [facility] [employer] [id number] 09:07:00 Test Item Value Reference Range Interpretation Comments B/C Ratio (test code = B/C Ratio) 31 1 6-25 [facility] [employer] [id number] 09:07:00 Test Item Value Reference Range Interpretation Comments Globulin (test code = Globulin) 3.1 2.7-4.2 [facility] [employer] [id number] 09:07:00 Test Item Value Reference Range Interpretation Comments A/G Ratio (test code = A/G Ratio) 0.8 1 0.7-1.6 [facility] [employer] [id number] 09:07:00 Test Item Value Reference Range Interpretation Comments eGFR (test code = eGFR) 59 [facility]HWSAIMIAP3385-54-22 09:07:00 Test Item Value Reference Range Interpretation Comments WBC (test code = WBC) 7.2 3.7-10.4 [facility] IyrjjruBLUSJKGRPW3651-87-83 09:07:00 Test Item Value Reference Range Interpretation Comments RBC (test code = RBC) 3.06 4.20-5.40 [facility]uvpxpqGXGCEVVUXQ4555-99-72 09:07:00 Test Item Value Reference Range Interpretation Comments Hgb (test code = Hgb) 7.4 12.0-16.0 [facility] CenterXdregvmJCYGLRWTEF0227-33-43 09:07:00 Test Item Value Reference Range Interpretation Comments Hct (test code = Hct) 22.5 36.0-48.0 [facility] CenterZaazbcoGQUZHKGLTM7928-93-54 09:07:00 Test Item Value Reference Range Interpretation Comments MCV (test code = MCV) 73.6 80.0-98.0 [facility] CenterKpghlywDLGOROXDSC7438-57-97 09:07:00 Test Item Value Reference Range Interpretation Comments MCH (test code = MCH) 24.2 pg 27.0-31.0 [facility] CenterYbftyuyFNRSAZTVGE6380-99-18 09:07:00 Test Item Value Reference Range Interpretation Comments MCHC (test code = MCHC) 32.9 32.0-36.0 [facility] CenterXezsaquSPNKXMYCNX6514-15-50 09:07:00 Test Item Value Reference Range Interpretation Comments RDW (test code = RDW) 20.8 11.5-14.5 [facility] CenterJuaiyltNWOPEDQMDV4488-27-12 09:07:00 Test Item Value Reference Range Interpretation Comments Platelet (test code = Platelet) 286 133-450 [facility] CenterLnoeqbfXDUKUPYFAR9702-98-54 09:07:00 Test Item Value Reference Range Interpretation Comments MPV (test code = MPV) 7.4 7.4-10.4 [facility] CenterDrpzzevKAFWUGWBLD6506-51-02 09:07:00 Test Item Value Reference Range Interpretation Comments Segs (test code = Segs) 73.8 45.0-75.0 [facility] CenterOyjgwtoKSQEWWIMOQ6214-63-41 09:07:00 Test Item Value Reference Range Interpretation Comments Lymphocytes (test code = Lymphocytes) 17.2 20.0-40.0 [place] 778932-07-27 09:07:00 Test Item Value Reference Range Interpretation Comments Monocytes (test code = Monocytes) 8.8 2.0-12.0 [place] 778932-07-27 09:07:00 Test Item Value Reference Range Interpretation Comments Neutrophils # (test code = Neutrophils 5.3 1.5-8.1 #) [place] 778932-07-27 09:07:00 Test Item Value Reference Range Interpretation Comments Lymphocytes # (test code = Lymphocytes 1.2 1.0-5.5 #) [place] 778932-07-27 09:07:00 Test Item Value Reference Range Interpretation Comments Monocytes # (test code 0.6 See_Comment [Aut omated message] The = Monocytes #) system which generated this result tra nsmitted reference range : <=0.8. The reference r hugo was not used to int erpret this result as normal/abnormal . [place] 778932-07-27 09:07:00 Test Item Value Reference Range Interpretation Comments Microcyte (test code = 1+ *ABN*(06/15/22 Microcyte) 4:07 AM) [place] 852652-07-27 09:07:00 Test Item Value Reference Range Interpretation Comments Glucose Lvl (test code = Glucose Lvl) 108 70-99 [place] 852652-07-27 09:07:00 Test Item Value Reference Range Interpretation Comments BUN (test code = BUN) 29 06-10 [place] 852652-07-27 09:07:00 Test Item Value Reference Range Interpretation Comments Creatinine Lvl (test code = Creatinine 0.94 0.50-1.40 Lvl) [place] 852652-07-27 09:07:00 Test Item Value Reference Range Interpretation Comments Sodium Lvl (test code = Sodium Lvl) 131 135-145 [place] 852652-07-27 09:07:00 Test Item Value Reference Range Interpretation Comments Potassium Lvl (test code = Potassium 3.2 3.5-5.1 Lvl) [place] 852652-07-27 09:07:00 Test Item Value Reference Range Interpretation Comments Chloride Lvl (test code = Chloride Lvl) 93 95-109 [place] 852652-07-27 09:07:00 Test Item Value Reference Range Interpretation Comments CO2 (test code = CO2) 31 24-32 [place] 852652-07-27 09:07:00 Test Item Value Reference Range Interpretation Comments Calcium Lvl (test code = Calcium Lvl) 8.0 8.5-10.5 [place] 852652-07-27 09:07:00 Test Item Value Reference Range Interpretation Comments Total Protein (test code = Total 5.7 6.4-8.4 Protein) [facility] [id number] 09:07:00 Test Item Value Reference Range Interpretation Comments Albumin Lvl (test code = Albumin Lvl) 2.6 3.5-5.0 [facility] [id number] 09:07:00 Test Item Value Reference Range Interpretation Comments ALT (test code = ALT) 18 See_Comment [Auto mated message] The system which ge nerated this result transmit lavon reference range : <=65. The reference range was not used to interpr et this result as dionne l/abnormal. [facility] [employer] [id number] 09:07:00 Test Item Value Reference Range Interpretation Comments AST (test code = AST) 28 See_Comment [Auto mated message] The system which ge nerated this result transmit lavon reference range : <=37. The reference range was not used to interpr et this result as dionne l/abnormal. [facility] [id number] 09:07:00 Test Item Value Reference Range Interpretation Comments Alk Phos (test code = Alk Phos) 44 39-136 [facility] [id number] 09:07:00 Test Item Value Reference Range Interpretation Comments Bili Total (test code = Bili Total) 1.1 0.2-1.3 [facility] [id number] 09:07:00 Test Item Value Reference Range Interpretation Comments AGAP (test code = AGAP) 10.2 10.0-20.0 [facility] [id number] 09:07:00 Test Item Value Reference Range Interpretation Comments B/C Ratio (test code = B/C Ratio) 31 1 6-25 [facility] [id number] 09:07:00 Test Item Value Reference Range Interpretation Comments Globulin (test code = Globulin) 3.1 2.7-4.2 [facility] [id number] 09:07:00 Test Item Value Reference Range Interpretation Comments A/G Ratio (test code = A/G Ratio) 0.8 1 0.7-1.6 [facility] [id number] 09:07:00 Test Item Value Reference Range Interpretation Comments eGFR (test code = eGFR) 59 [facility] CenterWrzhkhkTIKZWQHWPE1085-07-55 09:07:00 Test Item Value Reference Range Interpretation Comments WBC (test code = WBC) 7.2 3.7-10.4 [facility] CenterJrikskqIWZUYLWTVT9080-72-81 09:07:00 Test Item Value Reference Range Interpretation Comments RBC (test code = RBC) 3.06 4.20-5.40 [facility] CenterVxbatjrQDGKFEGWYJ5360-61-49 09:07:00 Test Item Value Reference Range Interpretation Comments Hgb (test code = Hgb) 7.4 12.0-16.0 [facility] CenterKprtixoWDVBDITNGP0563-69-25 09:07:00 Test Item Value Reference Range Interpretation Comments Hct (test code = Hct) 22.5 36.0-48.0 [facility] CenterVjovthuZFGKVOQOSV5803-44-76 09:07:00 Test Item Value Reference Range Interpretation Comments MCV (test code = MCV) 73.6 80.0-98.0 [facility] CenterEdzmrrwJLQNZRMQWK0809-54-21 09:07:00 Test Item Value Reference Range Interpretation Comments MCH (test code = MCH) 24.2 pg 27.0-31.0 [facility] CenterIlioqueUPFLHNSJLL6350-37-28 09:07:00 Test Item Value Reference Range Interpretation Comments MCHC (test code = MCHC) 32.9 32.0-36.0 [facility] CenterZpsxbecBTBJKRFLIP4198-55-81 09:07:00 Test Item Value Reference Range Interpretation Comments RDW (test code = RDW) 20.8 11.5-14.5 [facility] CenterUpfhwsjTHWSSBSXVG9809-11-49 09:07:00 Test Item Value Reference Range Interpretation Comments Platelet (test code = Platelet) 286 133-450 [facility] CenterEgrsdmdQJKRNINCRK6300-49-20 09:07:00 Test Item Value Reference Range Interpretation Comments MPV (test code = MPV) 7.4 7.4-10.4 [facility] CenterGgqquidMTCGEUPYGG7308-61-31 09:07:00 Test Item Value Reference Range Interpretation Comments Segs (test code = Segs) 73.8 45.0-75.0 [facility] CenterWqlpabjDCQTBYJRIH6800-05-41 09:07:00 Test Item Value Reference Range Interpretation Comments Lymphocytes (test code = Lymphocytes) 17.2 20.0-40.0 [facility] CenterAlygfxmVCAKJXZGET6691-49-25 09:07:00 Test Item Value Reference Range Interpretation Comments Monocytes (test code = Monocytes) 8.8 2.0-12.0 [place] 778932-07-27 09:07:00 Test Item Value Reference Range Interpretation Comments Neutrophils # (test code = Neutrophils 5.3 1.5-8.1 #) [place] 12581-07-27 09:07:00 Test Item Value Reference Range Interpretation Comments Lymphocytes # (test code = Lymphocytes 1.2 1.0-5.5 #) [place] 778932-07-27 09:07:00 Test Item Value Reference Range Interpretation Comments Monocytes # (test code 0.6 See_Comment [Aut omated message] The = Monocytes #) system which generated this result tra nsmitted reference range : <=0.8. The reference r hugo was not used to int erpret this result as normal/abnormal . [place] 778932-07-27 09:07:00 Test Item Value Reference Range Interpretation Comments Microcyte (test code = 1+ *ABN*(06/15/22 Microcyte) 4:07 AM) [place] 852652-07-27 09:07:00 Test Item Value Reference Range Interpretation Comments Glucose Lvl (test code = Glucose Lvl) 108 70-99 [place] 852652-07-27 09:07:00 Test Item Value Reference Range Interpretation Comments BUN (test code = BUN) 29 06-10 [place] 852652-07-27 09:07:00 Test Item Value Reference Range Interpretation Comments Creatinine Lvl (test code = Creatinine 0.94 0.50-1.40 Lvl) [place] 852652-07-27 09:07:00 Test Item Value Reference Range Interpretation Comments Sodium Lvl (test code = Sodium Lvl) 131 135-145 [place] 852652-07-27 09:07:00 Test Item Value Reference Range Interpretation Comments Potassium Lvl (test code = Potassium 3.2 3.5-5.1 Lvl) [place] 56366-07-27 09:07:00 Test Item Value Reference Range Interpretation Comments Chloride Lvl (test code = Chloride Lvl) 93 95-109 [place] 852652-07-27 09:07:00 Test Item Value Reference Range Interpretation Comments CO2 (test code = CO2) 31 24-32 [facility] [id number] 09:07:00 Test Item Value Reference Range Interpretation Comments Calcium Lvl (test code = Calcium Lvl) 8.0 8.5-10.5 [facility] [id number] 09:07:00 Test Item Value Reference Range Interpretation Comments Total Protein (test code = Total 5.7 6.4-8.4 Protein) [facility] [id number] 09:07:00 Test Item Value Reference Range Interpretation Comments Albumin Lvl (test code = Albumin Lvl) 2.6 3.5-5.0 [facility] [id number] 09:07:00 Test Item Value Reference Range Interpretation Comments ALT (test code = ALT) 18 See_Comment [Auto mated message] The system which ge nerated this result transmit lavon reference range : <=65. The reference range was not used to interpr et this result as dionne l/abnormal. [facility] [id number] 09:07:00 Test Item Value Reference Range Interpretation Comments AST (test code = AST) 28 See_Comment [Auto mated message] The system which ge nerated this result transmit lavon reference range : <=37. The reference range was not used to interpr et this result as dionne l/abnormal. [facility] [employer] [id number] 09:07:00 Test Item Value Reference Range Interpretation Comments Alk Phos (test code = Alk Phos) 44 39-136 [facility] [employer] [id number] 09:07:00 Test Item Value Reference Range Interpretation Comments Bili Total (test code = Bili Total) 1.1 0.2-1.3 [facility] [employer] [id number] 09:07:00 Test Item Value Reference Range Interpretation Comments AGAP (test code = AGAP) 10.2 10.0-20.0 [facility] [employer] [id number] 09:07:00 Test Item Value Reference Range Interpretation Comments B/C Ratio (test code = B/C Ratio) 31 1 6-25 [facility] [id number] 09:07:00 Test Item Value Reference Range Interpretation Comments Globulin (test code = Globulin) 3.1 2.7-4.2 [facility]2022-07-27 09:07:00 Test Item Value Reference Range Interpretation Comments A/G Ratio (test code = A/G Ratio) 0.8 1 0.7-1.6 [place] 852652-07-27 09:07:00 Test Item Value Reference Range Interpretation Comments eGFR (test code = eGFR) 59 [facility] CenterEiobnkqPLDEVPNTMX8931-68-11 09:07:00 Test Item Value Reference Range Interpretation Comments WBC (test code = WBC) 7.2 3.7-10.4 [place] 778932-07-27 09:07:00 Test Item Value Reference Range Interpretation Comments RBC (test code = RBC) 3.06 4.20-5.40 [place] 778932-07-27 09:07:00 Test Item Value Reference Range Interpretation Comments Hgb (test code = Hgb) 7.4 12.0-16.0 [place] 778932-07-27 09:07:00 Test Item Value Reference Range Interpretation Comments Hct (test code = Hct) 22.5 36.0-48.0 [facility] CenterAmofjrdIQBNZHVYWY7025-28-25 09:07:00 Test Item Value Reference Range Interpretation Comments MCV (test code = MCV) 73.6 80.0-98.0 [place] 778932-07-27 09:07:00 Test Item Value Reference Range Interpretation Comments MCH (test code = MCH) 24.2 pg 27.0-31.0 [facility] CenterEylnyvsFSVJSDDHWM6810-16-89 09:07:00 Test Item Value Reference Range Interpretation Comments MCHC (test code = MCHC) 32.9 32.0-36.0 [facility] CenterTqhsyarOQPRAJGPHD6186-27-79 09:07:00 Test Item Value Reference Range Interpretation Comments RDW (test code = RDW) 20.8 11.5-14.5 [place] 778932-07-27 09:07:00 Test Item Value Reference Range Interpretation Comments Platelet (test code = Platelet) 286 133-450 [place] 778932-07-27 09:07:00 Test Item Value Reference Range Interpretation Comments MPV (test code = MPV) 7.4 7.4-10.4 [place] 778932-07-27 09:07:00 Test Item Value Reference Range Interpretation Comments Segs (test code = Segs) 73.8 45.0-75.0 [place] 12581-07-27 09:07:00 Test Item Value Reference Range Interpretation Comments Lymphocytes (test code = Lymphocytes) 17.2 20.0-40.0 [place] 778932-07-27 09:07:00 Test Item Value Reference Range Interpretation Comments Monocytes (test code = Monocytes) 8.8 2.0-12.0 [place] 778932-07-27 09:07:00 Test Item Value Reference Range Interpretation Comments Neutrophils # (test code = Neutrophils 5.3 1.5-8.1 #) [place] 778932-07-27 09:07:00 Test Item Value Reference Range Interpretation Comments Lymphocytes # (test code = Lymphocytes 1.2 1.0-5.5 #) [place] 125[address]-07-27 09:07:00 Test Item Value Reference Range Interpretation Comments Monocytes # (test code 0.6 See_Comment [Aut omated message] The = Monocytes #) system which generated this result tra nsmitted reference range : <=0.8. The reference r hugo was not used to int erpret this result as normal/abnormal . [place] 778932-07-27 09:07:00 Test Item Value Reference Range Interpretation Comments Microcyte (test code = 1+ *ABN*(06/15/22 Microcyte) 4:07 AM) [place] 852652-07-27 09:07:00 Test Item Value Reference Range Interpretation Comments Glucose Lvl (test code = Glucose Lvl) 108 70-99 [place] 852652-07-27 09:07:00 Test Item Value Reference Range Interpretation Comments BUN (test code = BUN) 29 - [place] 852652-07-27 09:07:00 Test Item Value Reference Range Interpretation Comments Creatinine Lvl (test code = Creatinine 0.94 0.50-1.40 Lvl) [place] 852652-07-27 09:07:00 Test Item Value Reference Range Interpretation Comments Sodium Lvl (test code = Sodium Lvl) 131 135-145 [place] 852652-07-27 09:07:00 Test Item Value Reference Range Interpretation Comments Potassium Lvl (test code = Potassium 3.2 3.5-5.1 Lvl) [place] 852652-07-27 09:07:00 Test Item Value Reference Range Interpretation Comments Chloride Lvl (test code = Chloride Lvl) 93 95-109 [place] 852652-07-27 09:07:00 Test Item Value Reference Range Interpretation Comments CO2 (test code = CO2) 31 24-32 [place] 852652-07-27 09:07:00 Test Item Value Reference Range Interpretation Comments Calcium Lvl (test code = Calcium Lvl) 8.0 8.5-10.5 [place] 852652-07-27 09:07:00 Test Item Value Reference Range Interpretation Comments Total Protein (test code = Total 5.7 6.4-8.4 Protein) [place] 852652-07-27 09:07:00 Test Item Value Reference Range Interpretation Comments Albumin Lvl (test code = Albumin Lvl) 2.6 3.5-5.0 [place] 852652-07-27 09:07:00 Test Item Value Reference Range Interpretation Comments ALT (test code = ALT) 18 See_Comment [Auto mated message] The system which ge nerated this result transmit lavon reference range : <=65. The reference range was not used to interpr et this result as dionne l/abnormal. [place] 852652-07-27 09:07:00 Test Item Value Reference Range Interpretation Comments AST (test code = AST) 28 See_Comment [Auto mated message] The system which ge nerated this result transmit lavon reference range : <=37. The reference range was not used to interpr et this result as dionne l/abnormal. [place] 852652-07-27 09:07:00 Test Item Value Reference Range Interpretation Comments Alk Phos (test code = Alk Phos) 44 39-136 [facility] [id number] 09:07:00 Test Item Value Reference Range Interpretation Comments Bili Total (test code = Bili Total) 1.1 0.2-1.3 [place] 852652-07-27 09:07:00 Test Item Value Reference Range Interpretation Comments AGAP (test code = AGAP) 10.2 10.0-20.0 [facility] [id number] 09:07:00 Test Item Value Reference Range Interpretation Comments B/C Ratio (test code = B/C Ratio) 31 1 6-25 [place] 852652-07-27 09:07:00 Test Item Value Reference Range Interpretation Comments Globulin (test code = Globulin) 3.1 2.7-4.2 [place] 852652-07-27 09:07:00 Test Item Value Reference Range Interpretation Comments A/G Ratio (test code = A/G Ratio) 0.8 1 0.7-1.6 [place] 852652-07-27 09:07:00 Test Item Value Reference Range Interpretation Comments eGFR (test code = eGFR) 59 [place] 778932-07-27 09:07:00 Test Item Value Reference Range Interpretation Comments WBC (test code = WBC) 7.2 3.7-10.4 [place] 778932-07-27 09:07:00 Test Item Value Reference Range Interpretation Comments RBC (test code = RBC) 3.06 4.20-5.40 [place] 778932-07-27 09:07:00 Test Item Value Reference Range Interpretation Comments Hgb (test code = Hgb) 7.4 12.0-16.0 [place] 778932-07-27 09:07:00 Test Item Value Reference Range Interpretation Comments Hct (test code = Hct) 22.5 36.0-48.0 [place] 778932-07-27 09:07:00 Test Item Value Reference Range Interpretation Comments MCV (test code = MCV) 73.6 80.0-98.0 [place] 778932-07-27 09:07:00 Test Item Value Reference Range Interpretation Comments MCH (test code = MCH) 24.2 pg 27.0-31.0 [place] 778932-07-27 09:07:00 Test Item Value Reference Range Interpretation Comments MCHC (test code = MCHC) 32.9 32.0-36.0 [place] 778932-07-27 09:07:00 Test Item Value Reference Range Interpretation Comments RDW (test code = RDW) 20.8 11.5-14.5 [place] 778932-07-27 09:07:00 Test Item Value Reference Range Interpretation Comments Platelet (test code = Platelet) 286 133-450 [facility]UnfsycsLPZHFHOHRU8154-09-95 09:07:00 Test Item Value Reference Range Interpretation Comments MPV (test code = MPV) 7.4 7.4-10.4 [facility] CenterXbyyoznMQOBKBREYP5111-44-26 09:07:00 Test Item Value Reference Range Interpretation Comments Segs (test code = Segs) 73.8 45.0-75.0 [place] 778932-07-27 09:07:00 Test Item Value Reference Range Interpretation Comments Lymphocytes (test code = Lymphocytes) 17.2 20.0-40.0 [place] 778932-07-27 09:07:00 Test Item Value Reference Range Interpretation Comments Monocytes (test code = Monocytes) 8.8 2.0-12.0 [facility] CenterZfhfrivYXHTPORFGI0153-74-71 09:07:00 Test Item Value Reference Range Interpretation Comments Neutrophils # (test code = Neutrophils 5.3 1.5-8.1 #) [facility] CenterFppfpdgXTRSOECPAZ3760-98-80 09:07:00 Test Item Value Reference Range Interpretation Comments Lymphocytes # (test code = Lymphocytes 1.2 1.0-5.5 #) [facility] CenterHsnjaliXIFUYIKKRR1836-52-12 09:07:00 Test Item Value Reference Range Interpretation Comments Monocytes # (test code 0.6 See_Comment [Aut omated message] The = Monocytes #) system which generated this result tra nsmitted reference range : <=0.8. The reference r hugo was not used to int erpret this result as normal/abnormal . [facility] CenterMnrdovkNUDORKLRUU0430-85-89 09:07:00 Test Item Value Reference Range Interpretation Comments Microcyte (test code = 1+ *ABN*(06/15/22 Microcyte) 4:07 AM) [facility]2022-07-27 09:07:00 Test Item Value Reference Range Interpretation Comments Glucose Lvl (test code = Glucose Lvl) 108 70-99 [facility]2022-07-27 09:07:00 Test Item Value Reference Range Interpretation Comments BUN (test code = BUN) 29 -22 [facility]2022-07-27 09:07:00 Test Item Value Reference Range Interpretation Comments Creatinine Lvl (test code = Creatinine 0.94 0.50-1.40 Lvl) [place] 852652-07-27 09:07:00 Test Item Value Reference Range Interpretation Comments Sodium Lvl (test code = Sodium Lvl) 131 135-145 [place] 852652-07-27 09:07:00 Test Item Value Reference Range Interpretation Comments Potassium Lvl (test code = Potassium 3.2 3.5-5.1 Lvl) [place] [address]-07-27 09:07:00 Test Item Value Reference Range Interpretation Comments Chloride Lvl (test code = Chloride Lvl) 93 95-109 [place] [address]-07-27 09:07:00 Test Item Value Reference Range Interpretation Comments CO2 (test code = CO2) 31 24-32 [place] 852652-07-27 09:07:00 Test Item Value Reference Range Interpretation Comments Calcium Lvl (test code = Calcium Lvl) 8.0 8.5-10.5 [place] [address]-07-27 09:07:00 Test Item Value Reference Range Interpretation Comments Total Protein (test code = Total 5.7 6.4-8.4 Protein) [place] 852652-07-27 09:07:00 Test Item Value Reference Range Interpretation Comments Albumin Lvl (test code = Albumin Lvl) 2.6 3.5-5.0 [place] 852652-07-27 09:07:00 Test Item Value Reference Range Interpretation Comments ALT (test code = ALT) 18 See_Comment [Auto mated message] The system which ge nerated this result transmit lavon reference range : <=65. The reference range was not used to interpr et this result as dionne l/abnormal. [place] 852652-07-27 09:07:00 Test Item Value Reference Range Interpretation Comments AST (test code = AST) 28 See_Comment [Auto mated message] The system which ge nerated this result transmit lavon reference range : <=37. The reference range was not used to interpr et this result as dionne l/abnormal. [place] 852652-07-27 09:07:00 Test Item Value Reference Range Interpretation Comments Alk Phos (test code = Alk Phos) 44 39-136 [place] 852652-07-27 09:07:00 Test Item Value Reference Range Interpretation Comments Bili Total (test code = Bili Total) 1.1 0.2-1.3 [facility]2022-07-27 09:07:00 Test Item Value Reference Range Interpretation Comments AGAP (test code = AGAP) 10.2 10.0-20.0 [place] 852652-07-27 09:07:00 Test Item Value Reference Range Interpretation Comments B/C Ratio (test code = B/C Ratio) 31 1 6-25 [place] 852652-07-27 09:07:00 Test Item Value Reference Range Interpretation Comments Globulin (test code = Globulin) 3.1 2.7-4.2 [place] 852652-07-27 09:07:00 Test Item Value Reference Range Interpretation Comments A/G Ratio (test code = A/G Ratio) 0.8 1 0.7-1.6 [place] 852652-07-27 09:07:00 Test Item Value Reference Range Interpretation Comments eGFR (test code = eGFR) 59 [facility]sv[facility]GLFIHIVCV2431[facility] 09:07:00 Test Item Value Reference Range Interpretation Comments WBC (test code = WBC) 7.2 3.7-10.4 [place] 778932-07-27 09:07:00 Test Item Value Reference Range Interpretation Comments RBC (test code = RBC) 3.06 4.20-5.40 [facility] CenterOuyagosSAPBAGWGDY6171-56-14 09:07:00 Test Item Value Reference Range Interpretation Comments Hgb (test code = Hgb) 7.4 12.0-16.0 [place] 778932-07-27 09:07:00 Test Item Value Reference Range Interpretation Comments Hct (test code = Hct) 22.5 36.0-48.0 [place] 778932-07-27 09:07:00 Test Item Value Reference Range Interpretation Comments MCV (test code = MCV) 73.6 80.0-98.0 [place] 778932-07-27 09:07:00 Test Item Value Reference Range Interpretation Comments MCH (test code = MCH) 24.2 pg 27.0-31.0 [place] 778932-07-27 09:07:00 Test Item Value Reference Range Interpretation Comments MCHC (test code = MCHC) 32.9 32.0-36.0 [place] [address]-07-27 09:07:00 Test Item Value Reference Range Interpretation Comments RDW (test code = RDW) 20.8 11.5-14.5 [place] 778932-07-27 09:07:00 Test Item Value Reference Range Interpretation Comments Platelet (test code = Platelet) 286 133-450 [place] 778932-07-27 09:07:00 Test Item Value Reference Range Interpretation Comments MPV (test code = MPV) 7.4 7.4-10.4 [place] 778932-07-27 09:07:00 Test Item Value Reference Range Interpretation Comments Segs (test code = Segs) 73.8 45.0-75.0 [place] 778932-07-27 09:07:00 Test Item Value Reference Range Interpretation Comments Lymphocytes (test code = Lymphocytes) 17.2 20.0-40.0 [place] 778932-07-27 09:07:00 Test Item Value Reference Range Interpretation Comments Monocytes (test code = Monocytes) 8.8 2.0-12.0 [facility] CenterDpujralQMPXNBIGVU5451-21-13 09:07:00 Test Item Value Reference Range Interpretation Comments Neutrophils # (test code = Neutrophils 5.3 1.5-8.1 #) [facility] CenterIuamcwxNUWMHUGGQE1642-69-24 09:07:00 Test Item Value Reference Range Interpretation Comments Lymphocytes # (test code = Lymphocytes 1.2 1.0-5.5 #) [place] 778932-07-27 09:07:00 Test Item Value Reference Range Interpretation Comments Monocytes # (test code 0.6 See_Comment [Aut omated message] The = Monocytes #) system which generated this result tra nsmitted reference range : <=0.8. The reference r hugo was not used to int erpret this result as normal/abnormal . [facility] CenterOxakjtwLIAKAULHJK6960-70-63 09:07:00 Test Item Value Reference Range Interpretation Comments Microcyte (test code = 1+ *ABN*(06/15/22 Microcyte) 4:07 AM) [facility]2022-07-27 09:07:00 Test Item Value Reference Range Interpretation Comments Glucose Lvl (test code = Glucose Lvl) 108 70-99 [facility]2022-07-27 09:07:00 Test Item Value Reference Range Interpretation Comments BUN (test code = BUN) 29 7-22 [place] [address]-07-27 09:07:00 Test Item Value Reference Range Interpretation Comments Creatinine Lvl (test code = Creatinine 0.94 0.50-1.40 Lvl) [place] [address]-07-27 09:07:00 Test Item Value Reference Range Interpretation Comments Sodium Lvl (test code = Sodium Lvl) 131 135-145 [place] 852652-07-27 09:07:00 Test Item Value Reference Range Interpretation Comments Potassium Lvl (test code = Potassium 3.2 3.5-5.1 Lvl) [place] [address]-07-27 09:07:00 Test Item Value Reference Range Interpretation Comments Chloride Lvl (test code = Chloride Lvl) 93 95-109 [place] [address]-07-27 09:07:00 Test Item Value Reference Range Interpretation Comments CO2 (test code = CO2) 31 24-32 [place] 852652-07-27 09:07:00 Test Item Value Reference Range Interpretation Comments Calcium Lvl (test code = Calcium Lvl) 8.0 8.5-10.5 [place] [address]-07-27 09:07:00 Test Item Value Reference Range Interpretation Comments Total Protein (test code = Total 5.7 6.4-8.4 Protein) [place] [address]-07-27 09:07:00 Test Item Value Reference Range Interpretation Comments Albumin Lvl (test code = Albumin Lvl) 2.6 3.5-5.0 [place] [address]-07-27 09:07:00 Test Item Value Reference Range Interpretation Comments ALT (test code = ALT) 18 See_Comment [Auto mated message] The system which ge nerated this result transmit lavon reference range : <=65. The reference range was not used to interpr et this result as dionne l/abnormal. [place] [address]-07-27 09:07:00 Test Item Value Reference Range Interpretation Comments AST (test code = AST) 28 See_Comment [Auto mated message] The system which ge nerated this result transmit lavon reference range : <=37. The reference range was not used to interpr et this result as dionne l/abnormal. [facility]2022-07-27 09:07:00 Test Item Value Reference Range Interpretation Comments Alk Phos (test code = Alk Phos) 44 39-136 [place] 852652-07-27 09:07:00 Test Item Value Reference Range Interpretation Comments Bili Total (test code = Bili Total) 1.1 0.2-1.3 [place] 852652-07-27 09:07:00 Test Item Value Reference Range Interpretation Comments AGAP (test code = AGAP) 10.2 10.0-20.0 [place] 852652-07-27 09:07:00 Test Item Value Reference Range Interpretation Comments B/C Ratio (test code = B/C Ratio) 31 1 6-25 [place] 852652-07-27 09:07:00 Test Item Value Reference Range Interpretation Comments Globulin (test code = Globulin) 3.1 2.7-4.2 [place] 852652-07-27 09:07:00 Test Item Value Reference Range Interpretation Comments A/G Ratio (test code = A/G Ratio) 0.8 1 0.7-1.6 [facility]2022-07-27 09:07:00 Test Item Value Reference Range Interpretation Comments eGFR (test code = eGFR) 59 [facility] CenterNqygtcvMLTJXDPNGZ0539-64-76 09:07:00 Test Item Value Reference Range Interpretation Comments WBC (test code = WBC) 7.2 3.7-10.4 [facility] CenterAjtxnagBCPNRTCEDP5638-65-62 09:07:00 Test Item Value Reference Range Interpretation Comments RBC (test code = RBC) 3.06 4.20-5.40 [place] 778932-07-27 09:07:00 Test Item Value Reference Range Interpretation Comments Hgb (test code = Hgb) 7.4 12.0-16.0 [place] 778932-07-27 09:07:00 Test Item Value Reference Range Interpretation Comments Hct (test code = Hct) 22.5 36.0-48.0 [place] 778932-07-27 09:07:00 Test Item Value Reference Range Interpretation Comments MCV (test code = MCV) 73.6 80.0-98.0 [place] 778932-07-27 09:07:00 Test Item Value Reference Range Interpretation Comments MCH (test code = MCH) 24.2 pg 27.0-31.0 [facility] CenterZdrxrlmLTVESFXAUB6529-51-40 09:07:00 Test Item Value Reference Range Interpretation Comments MCHC (test code = MCHC) 32.9 32.0-36.0 [facility] CenterAniqsmoCJMPYRPKPS7670-24-30 09:07:00 Test Item Value Reference Range Interpretation Comments RDW (test code = RDW) 20.8 11.5-14.5 [facility] CenterQqhqvqrGPAJOQGNSO1581-81-48 09:07:00 Test Item Value Reference Range Interpretation Comments Platelet (test code = Platelet) 286 133-450 [facility] CenterZmjbtglOFFSTBNPAU4595-96-59 09:07:00 Test Item Value Reference Range Interpretation Comments MPV (test code = MPV) 7.4 7.4-10.4 [facility] CenterGqtalnvHLAXOGPOZW8408-79-73 09:07:00 Test Item Value Reference Range Interpretation Comments Segs (test code = Segs) 73.8 45.0-75.0 [facility] CenterFprycpsQMLCUKNHTC5227-40-87 09:07:00 Test Item Value Reference Range Interpretation Comments Lymphocytes (test code = Lymphocytes) 17.2 20.0-40.0 [facility] CenterSlcbvtlYAANHFNYUW3393-35-63 09:07:00 Test Item Value Reference Range Interpretation Comments Monocytes (test code = Monocytes) 8.8 2.0-12.0 [facility] CenterDfnjbarXWVBZFMBCP2179-73-08 09:07:00 Test Item Value Reference Range Interpretation Comments Neutrophils # (test code = Neutrophils 5.3 1.5-8.1 #) [facility] CenterKxwxvohYCHJEVDZHX2348-70-55 09:07:00 Test Item Value Reference Range Interpretation Comments Lymphocytes # (test code = Lymphocytes 1.2 1.0-5.5 #) [place] 778932-07-27 09:07:00 Test Item Value Reference Range Interpretation Comments Monocytes # (test code 0.6 See_Comment [Aut omated message] The = Monocytes #) system which generated this result tra nsmitted reference range : <=0.8. The reference r hugo was not used to int erpret this result as normal/abnormal . [facility] CenterGevmwepXXACHSWLTR8568-61-88 09:07:00 Test Item Value Reference Range Interpretation Comments Microcyte (test code = 1+ *ABN*(06/15/22 Microcyte) 4:07 AM) [place] [address]-07-27 09:07:00 Test Item Value Reference Range Interpretation Comments Glucose Lvl (test code = Glucose Lvl) 108 70-99 [place] 852652-07-27 09:07:00 Test Item Value Reference Range Interpretation Comments BUN (test code = BUN) 29 -22 [place] 852652-07-27 09:07:00 Test Item Value Reference Range Interpretation Comments Creatinine Lvl (test code = Creatinine 0.94 0.50-1.40 Lvl) [place] 852652-07-27 09:07:00 Test Item Value Reference Range Interpretation Comments Sodium Lvl (test code = Sodium Lvl) 131 135-145 [place] 852652-07-27 09:07:00 Test Item Value Reference Range Interpretation Comments Potassium Lvl (test code = Potassium 3.2 3.5-5.1 Lvl) [place] 852652-07-27 09:07:00 Test Item Value Reference Range Interpretation Comments Chloride Lvl (test code = Chloride Lvl) 93 95-109 [place] 852652-07-27 09:07:00 Test Item Value Reference Range Interpretation Comments CO2 (test code = CO2) 31 24-32 [place] 852652-07-27 09:07:00 Test Item Value Reference Range Interpretation Comments Calcium Lvl (test code = Calcium Lvl) 8.0 8.5-10.5 [place] 852652-07-27 09:07:00 Test Item Value Reference Range Interpretation Comments Total Protein (test code = Total 5.7 6.4-8.4 Protein) [place] 852652-07-27 09:07:00 Test Item Value Reference Range Interpretation Comments Albumin Lvl (test code = Albumin Lvl) 2.6 3.5-5.0 [place] 852652-07-27 09:07:00 Test Item Value Reference Range Interpretation Comments ALT (test code = ALT) 18 See_Comment [Auto mated message] The system which ge nerated this result transmit lavon reference range : <=65. The reference range was not used to interpr et this result as dionne l/abnormal. [facility] [id number] 09:07:00 Test Item Value Reference Range Interpretation Comments AST (test code = AST) 28 See_Comment [Auto mated message] The system which ge nerated this result transmit lavon reference range : <=37. The reference range was not used to interpr et this result as dionne l/abnormal. [place] 852652-07-27 09:07:00 Test Item Value Reference Range Interpretation Comments Alk Phos (test code = Alk Phos) 44 39-136 [place] 852652-07-27 09:07:00 Test Item Value Reference Range Interpretation Comments Bili Total (test code = Bili Total) 1.1 0.2-1.3 [place] 852652-07-27 09:07:00 Test Item Value Reference Range Interpretation Comments AGAP (test code = AGAP) 10.2 10.0-20.0 [place] 852652-07-27 09:07:00 Test Item Value Reference Range Interpretation Comments B/C Ratio (test code = B/C Ratio) 31 1 6-25 [place] 852652-07-27 09:07:00 Test Item Value Reference Range Interpretation Comments Globulin (test code = Globulin) 3.1 2.7-4.2 [place] 852652-07-27 09:07:00 Test Item Value Reference Range Interpretation Comments A/G Ratio (test code = A/G Ratio) 0.8 1 0.7-1.6 [place] 852652-07-27 09:07:00 Test Item Value Reference Range Interpretation Comments eGFR (test code = eGFR) 59 [place] 778932-07-27 09:07:00 Test Item Value Reference Range Interpretation Comments WBC (test code = WBC) 7.2 3.7-10.4 [place] [address]-07-27 09:07:00 Test Item Value Reference Range Interpretation Comments RBC (test code = RBC) 3.06 4.20-5.40 [place] [address]-07-27 09:07:00 Test Item Value Reference Range Interpretation Comments Hgb (test code = Hgb) 7.4 12.0-16.0 [place] [address]-07-27 09:07:00 Test Item Value Reference Range Interpretation Comments Hct (test code = Hct) 22.5 36.0-48.0 [place] 778932-07-27 09:07:00 Test Item Value Reference Range Interpretation Comments MCV (test code = MCV) 73.6 80.0-98.0 [place] 778932-07-27 09:07:00 Test Item Value Reference Range Interpretation Comments MCH (test code = MCH) 24.2 pg 27.0-31.0 [facility] CenterLzwxdxwAKOOBSFLVH2989-62-66 09:07:00 Test Item Value Reference Range Interpretation Comments MCHC (test code = MCHC) 32.9 32.0-36.0 [facility] CenterHbixprzMAYZOMCQOJ4967-49-00 09:07:00 Test Item Value Reference Range Interpretation Comments RDW (test code = RDW) 20.8 11.5-14.5 [place] 778932-07-27 09:07:00 Test Item Value Reference Range Interpretation Comments Platelet (test code = Platelet) 286 133-450 [facility] CenterYnxtzquWCXKZVSUPD4061-22-11 09:07:00 Test Item Value Reference Range Interpretation Comments MPV (test code = MPV) 7.4 7.4-10.4 [place] 778932-07-27 09:07:00 Test Item Value Reference Range Interpretation Comments Segs (test code = Segs) 73.8 45.0-75.0 [place] 778932-07-27 09:07:00 Test Item Value Reference Range Interpretation Comments Lymphocytes (test code = Lymphocytes) 17.2 20.0-40.0 [facility] CenterYphuafuKXTAZWNSNM3727-67-10 09:07:00 Test Item Value Reference Range Interpretation Comments Monocytes (test code = Monocytes) 8.8 2.0-12.0 [place] 778932-07-27 09:07:00 Test Item Value Reference Range Interpretation Comments Neutrophils # (test code = Neutrophils 5.3 1.5-8.1 #) [facility] CenterAlsyajnFZNNVQFZBU1668-62-38 09:07:00 Test Item Value Reference Range Interpretation Comments Lymphocytes # (test code = Lymphocytes 1.2 1.0-5.5 #) [place] 778932-07-27 09:07:00 Test Item Value Reference Range Interpretation Comments Monocytes # (test code 0.6 See_Comment [Aut omated message] The = Monocytes #) system which generated this result tra nsmitted reference range : <=0.8. The reference r hugo was not used to int erpret this result as normal/abnormal . [facility] CenterZczprsiFZKUZMBVDW5325-94-45 09:07:00 Test Item Value Reference Range Interpretation Comments Microcyte (test code = 1+ *ABN*(06/15/22 Microcyte) 4:07 AM) [place] 852652-07-27 09:07:00 Test Item Value Reference Range Interpretation Comments Glucose Lvl (test code = Glucose Lvl) 108 70-99 [place] 852652-07-27 09:07:00 Test Item Value Reference Range Interpretation Comments BUN (test code = BUN) 29 -22 [place] 852652-07-27 09:07:00 Test Item Value Reference Range Interpretation Comments Creatinine Lvl (test code = Creatinine 0.94 0.50-1.40 Lvl) [place] 852652-07-27 09:07:00 Test Item Value Reference Range Interpretation Comments Sodium Lvl (test code = Sodium Lvl) 131 135-145 [place] 852652-07-27 09:07:00 Test Item Value Reference Range Interpretation Comments Potassium Lvl (test code = Potassium 3.2 3.5-5.1 Lvl) [place] 852652-07-27 09:07:00 Test Item Value Reference Range Interpretation Comments Chloride Lvl (test code = Chloride Lvl) 93 95-109 [place] 852652-07-27 09:07:00 Test Item Value Reference Range Interpretation Comments CO2 (test code = CO2) 31 24-32 [place] 852652-07-27 09:07:00 Test Item Value Reference Range Interpretation Comments Calcium Lvl (test code = Calcium Lvl) 8.0 8.5-10.5 [place] 852652-07-27 09:07:00 Test Item Value Reference Range Interpretation Comments Total Protein (test code = Total 5.7 6.4-8.4 Protein) [place] 852652-07-27 09:07:00 Test Item Value Reference Range Interpretation Comments Albumin Lvl (test code = Albumin Lvl) 2.6 3.5-5.0 [place] 852652-07-27 09:07:00 Test Item Value Reference Range Interpretation Comments ALT (test code = ALT) 18 See_Comment [Auto mated message] The system which ge nerated this result transmit lavon reference range : <=65. The reference range was not used to interpr et this result as dionne l/abnormal. [facility] [employer] [id number] 09:07:00 Test Item Value Reference Range Interpretation Comments AST (test code = AST) 28 See_Comment [Auto mated message] The system which ge nerated this result transmit lavon reference range : <=37. The reference range was not used to interpr et this result as dionne l/abnormal. [facility] [employer] [id number] 09:07:00 Test Item Value Reference Range Interpretation Comments Alk Phos (test code = Alk Phos) 44 39-136 [facility] [employer] [id number] 09:07:00 Test Item Value Reference Range Interpretation Comments Bili Total (test code = Bili Total) 1.1 0.2-1.3 [facility] [employer] [id number] 09:07:00 Test Item Value Reference Range Interpretation Comments AGAP (test code = AGAP) 10.2 10.0-20.0 [facility] [employer] [id number] 09:07:00 Test Item Value Reference Range Interpretation Comments B/C Ratio (test code = B/C Ratio) 31 1 6-25 [facility] [employer] [id number] 09:07:00 Test Item Value Reference Range Interpretation Comments Globulin (test code = Globulin) 3.1 2.7-4.2 [facility] [employer] [id number] 09:07:00 Test Item Value Reference Range Interpretation Comments A/G Ratio (test code = A/G Ratio) 0.8 1 0.7-1.6 [facility] [employer] [id number] 09:07:00 Test Item Value Reference Range Interpretation Comments eGFR (test code = eGFR) 59 [facility] HgtfcguZDEMOTHCWM0827-52-70 09:07:00 Test Item Value Reference Range Interpretation Comments WBC (test code = WBC) 7.2 3.7-10.4 [facility] MlqeldaUXDXSGYADF0411-58-05 09:07:00 Test Item Value Reference Range Interpretation Comments RBC (test code = RBC) 3.06 4.20-5.40 [facility] CenterOekyftxDAIWQIYHGV5774-89-30 09:07:00 Test Item Value Reference Range Interpretation Comments Hgb (test code = Hgb) 7.4 12.0-16.0 [facility] CenterNitgoauJLYZJMQNTQ7564-35-23 09:07:00 Test Item Value Reference Range Interpretation Comments Hct (test code = Hct) 22.5 36.0-48.0 [facility] CenterWaunbvfALBOGFMWAH0425-87-85 09:07:00 Test Item Value Reference Range Interpretation Comments MCV (test code = MCV) 73.6 80.0-98.0 [facility] CenterNrobhxwZQOPVUPXDE2660-16-69 09:07:00 Test Item Value Reference Range Interpretation Comments MCH (test code = MCH) 24.2 pg 27.0-31.0 [facility] CenterOeflbbpSMZTVKYLWP7935-32-01 09:07:00 Test Item Value Reference Range Interpretation Comments MCHC (test code = MCHC) 32.9 32.0-36.0 [facility] CenterKfnseyzDANQULSGIL6570-57-86 09:07:00 Test Item Value Reference Range Interpretation Comments RDW (test code = RDW) 20.8 11.5-14.5 [facility] CenterCvfuturYECFQPBJDC2795-42-51 09:07:00 Test Item Value Reference Range Interpretation Comments Platelet (test code = Platelet) 286 133-450 [facility] CenterDkataykGUFKYYPLUF0075-38-28 09:07:00 Test Item Value Reference Range Interpretation Comments MPV (test code = MPV) 7.4 7.4-10.4 [facility] CenterLnskgztDZWWQKSJJA6855-21-03 09:07:00 Test Item Value Reference Range Interpretation Comments Segs (test code = Segs) 73.8 45.0-75.0 [facility] CenterKemjqppKBNQSMSYOI3109-25-56 09:07:00 Test Item Value Reference Range Interpretation Comments Lymphocytes (test code = Lymphocytes) 17.2 20.0-40.0 [facility] CenterWcasciyREPPIPGRFE6726-36-00 09:07:00 Test Item Value Reference Range Interpretation Comments Monocytes (test code = Monocytes) 8.8 2.0-12.0 [facility] CenterGbegdnvPNUHRARZVG9240-24-32 09:07:00 Test Item Value Reference Range Interpretation Comments Neutrophils # (test code = Neutrophils 5.3 1.5-8.1 #) [place] 778932-07-27 09:07:00 Test Item Value Reference Range Interpretation Comments Lymphocytes # (test code = Lymphocytes 1.2 1.0-5.5 #) [place] 778932-07-27 09:07:00 Test Item Value Reference Range Interpretation Comments Monocytes # (test code 0.6 See_Comment [Aut omated message] The = Monocytes #) system which generated this result tra nsmitted reference range : <=0.8. The reference r hugo was not used to int erpret this result as normal/abnormal . [place] 778932-07-27 09:07:00 Test Item Value Reference Range Interpretation Comments Microcyte (test code = 1+ *ABN*(06/15/22 Microcyte) 4:07 AM) [place] 852652-07-27 09:07:00 Test Item Value Reference Range Interpretation Comments Glucose Lvl (test code = Glucose Lvl) 108 70-99 [place] 852652-07-27 09:07:00 Test Item Value Reference Range Interpretation Comments BUN (test code = BUN) 29 06-10 [place] 852652-07-27 09:07:00 Test Item Value Reference Range Interpretation Comments Creatinine Lvl (test code = Creatinine 0.94 0.50-1.40 Lvl) [place] 852652-07-27 09:07:00 Test Item Value Reference Range Interpretation Comments Sodium Lvl (test code = Sodium Lvl) 131 135-145 [place] 852652-07-27 09:07:00 Test Item Value Reference Range Interpretation Comments Potassium Lvl (test code = Potassium 3.2 3.5-5.1 Lvl) [place] 852652-07-27 09:07:00 Test Item Value Reference Range Interpretation Comments Chloride Lvl (test code = Chloride Lvl) 93 95-109 [place] 852652-07-27 09:07:00 Test Item Value Reference Range Interpretation Comments CO2 (test code = CO2) 31 24-32 [place] 852652-07-27 09:07:00 Test Item Value Reference Range Interpretation Comments Calcium Lvl (test code = Calcium Lvl) 8.0 8.5-10.5 [place] 852652-07-27 09:07:00 Test Item Value Reference Range Interpretation Comments Total Protein (test code = Total 5.7 6.4-8.4 Protein) [facility] [employer] [id number] 09:07:00 Test Item Value Reference Range Interpretation Comments Albumin Lvl (test code = Albumin Lvl) 2.6 3.5-5.0 [facility] [id number] 09:07:00 Test Item Value Reference Range Interpretation Comments ALT (test code = ALT) 18 See_Comment [Auto mated message] The system which ge nerated this result transmit lavon reference range : <=65. The reference range was not used to interpr et this result as dionne l/abnormal. [facility] [employer] [id number] 09:07:00 Test Item Value Reference Range Interpretation Comments AST (test code = AST) 28 See_Comment [Auto mated message] The system which ge nerated this result transmit lavon reference range : <=37. The reference range was not used to interpr et this result as dionne l/abnormal. [facility] [employer] [id number] 09:07:00 Test Item Value Reference Range Interpretation Comments Alk Phos (test code = Alk Phos) 44 39-136 [facility] [employer] [id number] 09:07:00 Test Item Value Reference Range Interpretation Comments Bili Total (test code = Bili Total) 1.1 0.2-1.3 [facility] [id number] 09:07:00 Test Item Value Reference Range Interpretation Comments AGAP (test code = AGAP) 10.2 10.0-20.0 [facility] [employer] [id number] 09:07:00 Test Item Value Reference Range Interpretation Comments B/C Ratio (test code = B/C Ratio) 31 1 6-25 [facility] [employer] [id number] 09:07:00 Test Item Value Reference Range Interpretation Comments Globulin (test code = Globulin) 3.1 2.7-4.2 [facility] [employer] [id number] 09:07:00 Test Item Value Reference Range Interpretation Comments A/G Ratio (test code = A/G Ratio) 0.8 1 0.7-1.6 [facility] [employer] [id number] 09:07:00 Test Item Value Reference Range Interpretation Comments eGFR (test code = eGFR) 59 [id number] 09:07:00 Test Item Value Reference Range Interpretation Comments WBC (test code = WBC) 7.2 3.7-10.4 [facility] CenterKdncxgbTDXONVHUVD8103-13-83 09:07:00 Test Item Value Reference Range Interpretation Comments RBC (test code = RBC) 3.06 4.20-5.40 [place] 778932-07-27 09:07:00 Test Item Value Reference Range Interpretation Comments Hgb (test code = Hgb) 7.4 12.0-16.0 [place] 778932-07-27 09:07:00 Test Item Value Reference Range Interpretation Comments Hct (test code = Hct) 22.5 36.0-48.0 [place] 778932-07-27 09:07:00 Test Item Value Reference Range Interpretation Comments MCV (test code = MCV) 73.6 80.0-98.0 [place] 778932-07-27 09:07:00 Test Item Value Reference Range Interpretation Comments MCH (test code = MCH) 24.2 pg 27.0-31.0 [facility] [id number] 09:07:00 Test Item Value Reference Range Interpretation Comments MCHC (test code = MCHC) 32.9 32.0-36.0 [facility] CenterYikhsyzQVXQDCWFXI8774-94-20 09:07:00 Test Item Value Reference Range Interpretation Comments RDW (test code = RDW) 20.8 11.5-14.5 [facility] CenterPcrddnxIIKHWUQKZE8495-77-42 09:07:00 Test Item Value Reference Range Interpretation Comments Platelet (test code = Platelet) 286 133-450 [facility] CenterDfbaeiwYABXMRIHBT1374-72-69 09:07:00 Test Item Value Reference Range Interpretation Comments MPV (test code = MPV) 7.4 7.4-10.4 [place] 778932-07-27 09:07:00 Test Item Value Reference Range Interpretation Comments Segs (test code = Segs) 73.8 45.0-75.0 [place] 778932-07-27 09:07:00 Test Item Value Reference Range Interpretation Comments Lymphocytes (test code = Lymphocytes) 17.2 20.0-40.0 [facility] CenterAmcffzxCXFRRYJWVG8930-78-64 09:07:00 Test Item Value Reference Range Interpretation Comments Monocytes (test code = Monocytes) 8.8 2.0-12.0 [place] [address]-07-27 09:07:00 Test Item Value Reference Range Interpretation Comments Neutrophils # (test code = Neutrophils 5.3 1.5-8.1 #) [place] [address]-07-27 09:07:00 Test Item Value Reference Range Interpretation Comments Lymphocytes # (test code = Lymphocytes 1.2 1.0-5.5 #) [place] [address]-07-27 09:07:00 Test Item Value Reference Range Interpretation Comments Monocytes # (test code 0.6 See_Comment [Aut omated message] The = Monocytes #) system which generated this result tra nsmitted reference range : <=0.8. The reference r hugo was not used to int erpret this result as normal/abnormal . [place] [address]-07-27 09:07:00 Test Item Value Reference Range Interpretation Comments Microcyte (test code = 1+ *ABN*(06/15/22 Microcyte) 4:07 AM) [place] 852652-07-27 09:07:00 Test Item Value Reference Range Interpretation Comments Glucose Lvl (test code = Glucose Lvl) 108 70-99 [place] 852652-07-27 09:07:00 Test Item Value Reference Range Interpretation Comments BUN (test code = BUN) 29 - [place] 852652-07-27 09:07:00 Test Item Value Reference Range Interpretation Comments Creatinine Lvl (test code = Creatinine 0.94 0.50-1.40 Lvl) [place] [address]-07-27 09:07:00 Test Item Value Reference Range Interpretation Comments Sodium Lvl (test code = Sodium Lvl) 131 135-145 [place] 852652-07-27 09:07:00 Test Item Value Reference Range Interpretation Comments Potassium Lvl (test code = Potassium 3.2 3.5-5.1 Lvl) [place] 852652-07-27 09:07:00 Test Item Value Reference Range Interpretation Comments Chloride Lvl (test code = Chloride Lvl) 93 95-109 [place] 852652-07-27 09:07:00 Test Item Value Reference Range Interpretation Comments CO2 (test code = CO2) 31 24-32 [facility] [id number] 09:07:00 Test Item Value Reference Range Interpretation Comments Calcium Lvl (test code = Calcium Lvl) 8.0 8.5-10.5 [facility] [id number] 09:07:00 Test Item Value Reference Range Interpretation Comments Total Protein (test code = Total 5.7 6.4-8.4 Protein) [facility] [id number] 09:07:00 Test Item Value Reference Range Interpretation Comments Albumin Lvl (test code = Albumin Lvl) 2.6 3.5-5.0 [facility] [id number] 09:07:00 Test Item Value Reference Range Interpretation Comments ALT (test code = ALT) 18 See_Comment [Auto mated message] The system which ge nerated this result transmit lavon reference range : <=65. The reference range was not used to interpr et this result as dionne l/abnormal. [facility] [id number] 09:07:00 Test Item Value Reference Range Interpretation Comments AST (test code = AST) 28 See_Comment [Auto mated message] The system which ge nerated this result transmit lavon reference range : <=37. The reference range was not used to interpr et this result as dionne l/abnormal. [facility] [employer] [id number] 09:07:00 Test Item Value Reference Range Interpretation Comments Alk Phos (test code = Alk Phos) 44 39-136 [facility] [employer] [id number] 09:07:00 Test Item Value Reference Range Interpretation Comments Bili Total (test code = Bili Total) 1.1 0.2-1.3 [facility] [id number] 09:07:00 Test Item Value Reference Range Interpretation Comments AGAP (test code = AGAP) 10.2 10.0-20.0 [facility] [employer] [id number] 09:07:00 Test Item Value Reference Range Interpretation Comments B/C Ratio (test code = B/C Ratio) 31 1 6-25 [facility] [id number] 09:07:00 Test Item Value Reference Range Interpretation Comments Globulin (test code = Globulin) 3.1 2.7-4.2 [facility]2022-07-27 09:07:00 Test Item Value Reference Range Interpretation Comments A/G Ratio (test code = A/G Ratio) 0.8 1 0.7-1.6 [facility]2022-07-27 09:07:00 Test Item Value Reference Range Interpretation Comments eGFR (test code = eGFR) 59 [place] 778932-07-27 09:07:00 Test Item Value Reference Range Interpretation Comments WBC (test code = WBC) 7.2 3.7-10.4 [place] 778932-07-27 09:07:00 Test Item Value Reference Range Interpretation Comments RBC (test code = RBC) 3.06 4.20-5.40 [place] 778932-07-27 09:07:00 Test Item Value Reference Range Interpretation Comments Hgb (test code = Hgb) 7.4 12.0-16.0 [place] 778932-07-27 09:07:00 Test Item Value Reference Range Interpretation Comments Hct (test code = Hct) 22.5 36.0-48.0 [place] 778932-07-27 09:07:00 Test Item Value Reference Range Interpretation Comments MCV (test code = MCV) 73.6 80.0-98.0 [place] 778932-07-27 09:07:00 Test Item Value Reference Range Interpretation Comments MCH (test code = MCH) 24.2 pg 27.0-31.0 [place] 778932-07-27 09:07:00 Test Item Value Reference Range Interpretation Comments MCHC (test code = MCHC) 32.9 32.0-36.0 [place] 778932-07-27 09:07:00 Test Item Value Reference Range Interpretation Comments RDW (test code = RDW) 20.8 11.5-14.5 [place] 778932-07-27 09:07:00 Test Item Value Reference Range Interpretation Comments Platelet (test code = Platelet) 286 133-450 [facility] CenterQjpcrsqJJMCPOVXMV3876-32-15 09:07:00 Test Item Value Reference Range Interpretation Comments MPV (test code = MPV) 7.4 7.4-10.4 [place] 778932-07-27 09:07:00 Test Item Value Reference Range Interpretation Comments Segs (test code = Segs) 73.8 45.0-75.0 [place] [address]-07-27 09:07:00 Test Item Value Reference Range Interpretation Comments Lymphocytes (test code = Lymphocytes) 17.2 20.0-40.0 [place] 778932-07-27 09:07:00 Test Item Value Reference Range Interpretation Comments Monocytes (test code = Monocytes) 8.8 2.0-12.0 [place] 778932-07-27 09:07:00 Test Item Value Reference Range Interpretation Comments Neutrophils # (test code = Neutrophils 5.3 1.5-8.1 #) [place] 778932-07-27 09:07:00 Test Item Value Reference Range Interpretation Comments Lymphocytes # (test code = Lymphocytes 1.2 1.0-5.5 #) [place] [address]-07-27 09:07:00 Test Item Value Reference Range Interpretation Comments Monocytes # (test code 0.6 See_Comment [Aut omated message] The = Monocytes #) system which generated this result tra nsmitted reference range : <=0.8. The reference r hugo was not used to int erpret this result as normal/abnormal . [place] 778932-07-27 09:07:00 Test Item Value Reference Range Interpretation Comments Microcyte (test code = 1+ *ABN*(06/15/22 Microcyte) 4:07 AM) [place] 852652-07-27 09:07:00 Test Item Value Reference Range Interpretation Comments Glucose Lvl (test code = Glucose Lvl) 108 70-99 [place] 852652-07-27 09:07:00 Test Item Value Reference Range Interpretation Comments BUN (test code = BUN) 29 -22 [place] 852652-07-27 09:07:00 Test Item Value Reference Range Interpretation Comments Creatinine Lvl (test code = Creatinine 0.94 0.50-1.40 Lvl) [place] 852652-07-27 09:07:00 Test Item Value Reference Range Interpretation Comments Sodium Lvl (test code = Sodium Lvl) 131 135-145 [place] 852652-07-27 09:07:00 Test Item Value Reference Range Interpretation Comments Potassium Lvl (test code = Potassium 3.2 3.5-5.1 Lvl) [place] 852652-07-27 09:07:00 Test Item Value Reference Range Interpretation Comments Chloride Lvl (test code = Chloride Lvl) 93 95-109 [place] 852652-07-27 09:07:00 Test Item Value Reference Range Interpretation Comments CO2 (test code = CO2) 31 24-32 [place] 852652-07-27 09:07:00 Test Item Value Reference Range Interpretation Comments Calcium Lvl (test code = Calcium Lvl) 8.0 8.5-10.5 [place] 852652-07-27 09:07:00 Test Item Value Reference Range Interpretation Comments Total Protein (test code = Total 5.7 6.4-8.4 Protein) [place] [address]-07-27 09:07:00 Test Item Value Reference Range Interpretation Comments Albumin Lvl (test code = Albumin Lvl) 2.6 3.5-5.0 [place] 852652-07-27 09:07:00 Test Item Value Reference Range Interpretation Comments ALT (test code = ALT) 18 See_Comment [Auto mated message] The system which ge nerated this result transmit lavon reference range : <=65. The reference range was not used to interpr et this result as dionne l/abnormal. [place] 852652-07-27 09:07:00 Test Item Value Reference Range Interpretation Comments AST (test code = AST) 28 See_Comment [Auto mated message] The system which ge nerated this result transmit lavon reference range : <=37. The reference range was not used to interpr et this result as dionne l/abnormal. [place] 852652-07-27 09:07:00 Test Item Value Reference Range Interpretation Comments Alk Phos (test code = Alk Phos) 44 39-136 [place] 852652-07-27 09:07:00 Test Item Value Reference Range Interpretation Comments Bili Total (test code = Bili Total) 1.1 0.2-1.3 [place] 852652-07-27 09:07:00 Test Item Value Reference Range Interpretation Comments AGAP (test code = AGAP) 10.2 10.0-20.0 [facility] [id number] 09:07:00 Test Item Value Reference Range Interpretation Comments B/C Ratio (test code = B/C Ratio) 31 1 6-25 [place] 852652-07-27 09:07:00 Test Item Value Reference Range Interpretation Comments Globulin (test code = Globulin) 3.1 2.7-4.2 [place] 852652-07-27 09:07:00 Test Item Value Reference Range Interpretation Comments A/G Ratio (test code = A/G Ratio) 0.8 1 0.7-1.6 [place] 852652-07-27 09:07:00 Test Item Value Reference Range Interpretation Comments eGFR (test code = eGFR) 59 [place] 778932-07-27 09:07:00 Test Item Value Reference Range Interpretation Comments WBC (test code = WBC) 7.2 3.7-10.4 [place] 778932-07-27 09:07:00 Test Item Value Reference Range Interpretation Comments RBC (test code = RBC) 3.06 4.20-5.40 [place] 778932-07-27 09:07:00 Test Item Value Reference Range Interpretation Comments Hgb (test code = Hgb) 7.4 12.0-16.0 [place] 778932-07-27 09:07:00 Test Item Value Reference Range Interpretation Comments Hct (test code = Hct) 22.5 36.0-48.0 [place] 778932-07-27 09:07:00 Test Item Value Reference Range Interpretation Comments MCV (test code = MCV) 73.6 80.0-98.0 [place] 778932-07-27 09:07:00 Test Item Value Reference Range Interpretation Comments MCH (test code = MCH) 24.2 pg 27.0-31.0 [place] 778932-07-27 09:07:00 Test Item Value Reference Range Interpretation Comments MCHC (test code = MCHC) 32.9 32.0-36.0 [place] 778932-07-27 09:07:00 Test Item Value Reference Range Interpretation Comments RDW (test code = RDW) 20.8 11.5-14.5 [place] 778932-07-27 09:07:00 Test Item Value Reference Range Interpretation Comments Platelet (test code = Platelet) 286 133-450 [place] 778932-07-27 09:07:00 Test Item Value Reference Range Interpretation Comments MPV (test code = MPV) 7.4 7.4-10.4 [facility] CenterSefgbstORVJDJDPRI2492-44-23 09:07:00 Test Item Value Reference Range Interpretation Comments Segs (test code = Segs) 73.8 45.0-75.0 [facility] CenterVadiqnlSLYLFPPWPZ9049-40-86 09:07:00 Test Item Value Reference Range Interpretation Comments Lymphocytes (test code = Lymphocytes) 17.2 20.0-40.0 [place] 778932-07-27 09:07:00 Test Item Value Reference Range Interpretation Comments Monocytes (test code = Monocytes) 8.8 2.0-12.0 [facility] CenterOkxsacuPLQGEVMWBF1987-57-72 09:07:00 Test Item Value Reference Range Interpretation Comments Neutrophils # (test code = Neutrophils 5.3 1.5-8.1 #) [facility] CenterAxooeyzVBERCAQRPF8718-91-19 09:07:00 Test Item Value Reference Range Interpretation Comments Lymphocytes # (test code = Lymphocytes 1.2 1.0-5.5 #) [facility] CenterKufzcqvXECGFTCLBY9614-26-42 09:07:00 Test Item Value Reference Range Interpretation Comments Monocytes # (test code 0.6 See_Comment [Aut omated message] The = Monocytes #) system which generated this result tra nsmitted reference range : <=0.8. The reference r hugo was not used to int erpret this result as normal/abnormal . [facility] CenterKlmroeoXBEGOOUUZG2073-78-81 09:07:00 Test Item Value Reference Range Interpretation Comments Microcyte (test code = 1+ *ABN*(06/15/22 Microcyte) 4:07 AM) [facility]2022-07-27 09:07:00 Test Item Value Reference Range Interpretation Comments Glucose Lvl (test code = Glucose Lvl) 108 70-99 [facility]2022-07-27 09:07:00 Test Item Value Reference Range Interpretation Comments BUN (test code = BUN) 29 - [place] 852652-07-27 09:07:00 Test Item Value Reference Range Interpretation Comments Creatinine Lvl (test code = Creatinine 0.94 0.50-1.40 Lvl) [place] 852652-07-27 09:07:00 Test Item Value Reference Range Interpretation Comments Sodium Lvl (test code = Sodium Lvl) 131 135-145 [place] 852652-07-27 09:07:00 Test Item Value Reference Range Interpretation Comments Potassium Lvl (test code = Potassium 3.2 3.5-5.1 Lvl) [place] [address]-07-27 09:07:00 Test Item Value Reference Range Interpretation Comments Chloride Lvl (test code = Chloride Lvl) 93 95-109 [place] 852652-07-27 09:07:00 Test Item Value Reference Range Interpretation Comments CO2 (test code = CO2) 31 24-32 [place] [address]-07-27 09:07:00 Test Item Value Reference Range Interpretation Comments Calcium Lvl (test code = Calcium Lvl) 8.0 8.5-10.5 [place] 852652-07-27 09:07:00 Test Item Value Reference Range Interpretation Comments Total Protein (test code = Total 5.7 6.4-8.4 Protein) [place] 852652-07-27 09:07:00 Test Item Value Reference Range Interpretation Comments Albumin Lvl (test code = Albumin Lvl) 2.6 3.5-5.0 [place] 852652-07-27 09:07:00 Test Item Value Reference Range Interpretation Comments ALT (test code = ALT) 18 See_Comment [Auto mated message] The system which ge nerated this result transmit lavon reference range : <=65. The reference range was not used to interpr et this result as dionne l/abnormal. [place] 852652-07-27 09:07:00 Test Item Value Reference Range Interpretation Comments AST (test code = AST) 28 See_Comment [Auto mated message] The system which ge nerated this result transmit lavon reference range : <=37. The reference range was not used to interpr et this result as dionne l/abnormal. [place] 852652-07-27 09:07:00 Test Item Value Reference Range Interpretation Comments Alk Phos (test code = Alk Phos) 44 39-136 [place] 852652-07-27 09:07:00 Test Item Value Reference Range Interpretation Comments Bili Total (test code = Bili Total) 1.1 0.2-1.3 [facility]2022-07-27 09:07:00 Test Item Value Reference Range Interpretation Comments AGAP (test code = AGAP) 10.2 10.0-20.0 [facility]2022-07-27 09:07:00 Test Item Value Reference Range Interpretation Comments B/C Ratio (test code = B/C Ratio) 31 1 6-25 [facility]2022-07-27 09:07:00 Test Item Value Reference Range Interpretation Comments Globulin (test code = Globulin) 3.1 2.7-4.2 [facility]2022-07-27 09:07:00 Test Item Value Reference Range Interpretation Comments A/G Ratio (test code = A/G Ratio) 0.8 1 0.7-1.6 [place] 852652-07-27 09:07:00 Test Item Value Reference Range Interpretation Comments eGFR (test code = eGFR) 59 [facility] CenterCspjzicRBXARZERAT0290-51-85 09:07:00 Test Item Value Reference Range Interpretation Comments WBC (test code = WBC) 7.2 3.7-10.4 [facility] CenterXhgbgapSKYLICBTAU1834-43-29 09:07:00 Test Item Value Reference Range Interpretation Comments RBC (test code = RBC) 3.06 4.20-5.40 [facility] CenterGhqpdjjTNUQTANFQK1394-13-79 09:07:00 Test Item Value Reference Range Interpretation Comments Hgb (test code = Hgb) 7.4 12.0-16.0 [place] 778932-07-27 09:07:00 Test Item Value Reference Range Interpretation Comments Hct (test code = Hct) 22.5 36.0-48.0 [place] 778932-07-27 09:07:00 Test Item Value Reference Range Interpretation Comments MCV (test code = MCV) 73.6 80.0-98.0 [place] 778932-07-27 09:07:00 Test Item Value Reference Range Interpretation Comments MCH (test code = MCH) 24.2 pg 27.0-31.0 [facility] CenterDxvuunvHWGWUWDJKY6125-97-88 09:07:00 Test Item Value Reference Range Interpretation Comments MCHC (test code = MCHC) 32.9 32.0-36.0 [place] 778932-07-27 09:07:00 Test Item Value Reference Range Interpretation Comments RDW (test code = RDW) 20.8 11.5-14.5 [place] 778932-07-27 09:07:00 Test Item Value Reference Range Interpretation Comments Platelet (test code = Platelet) 286 133-450 [place] 778932-07-27 09:07:00 Test Item Value Reference Range Interpretation Comments MPV (test code = MPV) 7.4 7.4-10.4 [facility] CenterTuhndypHTUFCUBPYS0804-88-77 09:07:00 Test Item Value Reference Range Interpretation Comments Segs (test code = Segs) 73.8 45.0-75.0 [place] 778932-07-27 09:07:00 Test Item Value Reference Range Interpretation Comments Lymphocytes (test code = Lymphocytes) 17.2 20.0-40.0 [place] 778932-07-27 09:07:00 Test Item Value Reference Range Interpretation Comments Monocytes (test code = Monocytes) 8.8 2.0-12.0 [facility] CenterOlxkvbxTVGSLFONJV6744-37-99 09:07:00 Test Item Value Reference Range Interpretation Comments Neutrophils # (test code = Neutrophils 5.3 1.5-8.1 #) [facility] CenterJulbbgoQPDQRZWLYZ9192-01-11 09:07:00 Test Item Value Reference Range Interpretation Comments Lymphocytes # (test code = Lymphocytes 1.2 1.0-5.5 #) [facility] CenterCjtpymwWWLATVISTQ4292-28-59 09:07:00 Test Item Value Reference Range Interpretation Comments Monocytes # (test code 0.6 See_Comment [Aut omated message] The = Monocytes #) system which generated this result tra nsmitted reference range : <=0.8. The reference r hugo was not used to int erpret this result as normal/abnormal . [facility] CenterMsksjqvRNRYASSWCF7721-94-44 09:07:00 Test Item Value Reference Range Interpretation Comments Microcyte (test code = 1+ *ABN*(06/15/22 Microcyte) 4:07 AM) [facility]2022-07-27 09:07:00 Test Item Value Reference Range Interpretation Comments Glucose Lvl (test code = Glucose Lvl) 108 70-99 [facility]2022-07-27 09:07:00 Test Item Value Reference Range Interpretation Comments BUN (test code = BUN) 29 7-22 [place] 852652-07-27 09:07:00 Test Item Value Reference Range Interpretation Comments Creatinine Lvl (test code = Creatinine 0.94 0.50-1.40 Lvl) [place] 852652-07-27 09:07:00 Test Item Value Reference Range Interpretation Comments Sodium Lvl (test code = Sodium Lvl) 131 135-145 [facility] [id number] 09:07:00 Test Item Value Reference Range Interpretation Comments Potassium Lvl (test code = Potassium 3.2 3.5-5.1 Lvl) [place] [address]-07-27 09:07:00 Test Item Value Reference Range Interpretation Comments Chloride Lvl (test code = Chloride Lvl) 93 95-109 [place] 852652-07-27 09:07:00 Test Item Value Reference Range Interpretation Comments CO2 (test code = CO2) 31 24-32 [place] 852652-07-27 09:07:00 Test Item Value Reference Range Interpretation Comments Calcium Lvl (test code = Calcium Lvl) 8.0 8.5-10.5 [facility] [facility] [id number] 09:07:00 Test Item Value Reference Range Interpretation Comments Total Protein (test code = Total 5.7 6.4-8.4 Protein) [place] 852652-07-27 09:07:00 Test Item Value Reference Range Interpretation Comments Albumin Lvl (test code = Albumin Lvl) 2.6 3.5-5.0 [facility] [id number] 09:07:00 Test Item Value Reference Range Interpretation Comments ALT (test code = ALT) 18 See_Comment [Auto mated message] The system which ge nerated this result transmit lavon reference range : <=65. The reference range was not used to interpr et this result as dionne l/abnormal. [facility] [id number] 09:07:00 Test Item Value Reference Range Interpretation Comments AST (test code = AST) 28 See_Comment [Auto mated message] The system which ge nerated this result transmit lavon reference range : <=37. The reference range was not used to interpr et this result as dionne l/abnormal. [place] 852652-07-27 09:07:00 Test Item Value Reference Range Interpretation Comments Alk Phos (test code = Alk Phos) 44 39-136 [place] 852652-07-27 09:07:00 Test Item Value Reference Range Interpretation Comments Bili Total (test code = Bili Total) 1.1 0.2-1.3 [place] 852652-07-27 09:07:00 Test Item Value Reference Range Interpretation Comments AGAP (test code = AGAP) 10.2 10.0-20.0 [place] 852652-07-27 09:07:00 Test Item Value Reference Range Interpretation Comments B/C Ratio (test code = B/C Ratio) 31 1 6-25 [place] 852652-07-27 09:07:00 Test Item Value Reference Range Interpretation Comments Globulin (test code = Globulin) 3.1 2.7-4.2 [place] 852652-07-27 09:07:00 Test Item Value Reference Range Interpretation Comments A/G Ratio (test code = A/G Ratio) 0.8 1 0.7-1.6 [place] 852652-07-27 09:07:00 Test Item Value Reference Range Interpretation Comments eGFR (test code = eGFR) 59 [facility]px[facility]mgFQRQBUJRRF5358-09-79 09:07:00 Test Item Value Reference Range Interpretation Comments WBC (test code = WBC) 7.2 3.7-10.4 [place] 778932-07-27 09:07:00 Test Item Value Reference Range Interpretation Comments RBC (test code = RBC) 3.06 4.20-5.40 [place] 778932-07-27 09:07:00 Test Item Value Reference Range Interpretation Comments Hgb (test code = Hgb) 7.4 12.0-16.0 [place] [address]-07-27 09:07:00 Test Item Value Reference Range Interpretation Comments Hct (test code = Hct) 22.5 36.0-48.0 [place] [address]-07-27 09:07:00 Test Item Value Reference Range Interpretation Comments MCV (test code = MCV) 73.6 80.0-98.0 [place] 778932-07-27 09:07:00 Test Item Value Reference Range Interpretation Comments MCH (test code = MCH) 24.2 pg 27.0-31.0 [facility] C[id number] 09:07:00 Test Item Value Reference Range Interpretation Comments MCHC (test code = MCHC) 32.9 32.0-36.0 [facility] CenterEwpglxtUACOQQFTBY2779-75-28 09:07:00 Test Item Value Reference Range Interpretation Comments RDW (test code = RDW) 20.8 11.5-14.5 [place] 778932-07-27 09:07:00 Test Item Value Reference Range Interpretation Comments Platelet (test code = Platelet) 286 133-450 [facility] CenterAqwuepyGSGHHVXCOF3796-45-44 09:07:00 Test Item Value Reference Range Interpretation Comments MPV (test code = MPV) 7.4 7.4-10.4 [place] 778932-07-27 09:07:00 Test Item Value Reference Range Interpretation Comments Segs (test code = Segs) 73.8 45.0-75.0 [place] 778932-07-27 09:07:00 Test Item Value Reference Range Interpretation Comments Lymphocytes (test code = Lymphocytes) 17.2 20.0-40.0 [facility] CenterFnjupzuACKYXRYMHS2570-62-89 09:07:00 Test Item Value Reference Range Interpretation Comments Monocytes (test code = Monocytes) 8.8 2.0-12.0 [facility] CenterJwpuchtCMKKNCMTEX2369-63-79 09:07:00 Test Item Value Reference Range Interpretation Comments Neutrophils # (test code = Neutrophils 5.3 1.5-8.1 #) [facility] CenterGupmohaMUEFXCPRTY8216-44-10 09:07:00 Test Item Value Reference Range Interpretation Comments Lymphocytes # (test code = Lymphocytes 1.2 1.0-5.5 #) [place] 778932-07-27 09:07:00 Test Item Value Reference Range Interpretation Comments Monocytes # (test code 0.6 See_Comment [Aut omated message] The = Monocytes #) system which generated this result tra nsmitted reference range : <=0.8. The reference r hugo was not used to int erpret this result as normal/abnormal . [facility] CenterKlpoxbcBMEFNJMIVU1474-01-94 09:07:00 Test Item Value Reference Range Interpretation Comments Microcyte (test code = 1+ *ABN*(06/15/22 Microcyte) 4:07 AM) [place] 852652-07-27 09:07:00 Test Item Value Reference Range Interpretation Comments Glucose Lvl (test code = Glucose Lvl) 108 70-99 [place] 852652-07-27 09:07:00 Test Item Value Reference Range Interpretation Comments BUN (test code = BUN) 29 -22 [place] 852652-07-27 09:07:00 Test Item Value Reference Range Interpretation Comments Creatinine Lvl (test code = Creatinine 0.94 0.50-1.40 Lvl) [place] 852652-07-27 09:07:00 Test Item Value Reference Range Interpretation Comments Sodium Lvl (test code = Sodium Lvl) 131 135-145 [place] 852652-07-27 09:07:00 Test Item Value Reference Range Interpretation Comments Potassium Lvl (test code = Potassium 3.2 3.5-5.1 Lvl) [place] 852652-07-27 09:07:00 Test Item Value Reference Range Interpretation Comments Chloride Lvl (test code = Chloride Lvl) 93 95-109 [place] 852652-07-27 09:07:00 Test Item Value Reference Range Interpretation Comments CO2 (test code = CO2) 31 24-32 [place] 852652-07-27 09:07:00 Test Item Value Reference Range Interpretation Comments Calcium Lvl (test code = Calcium Lvl) 8.0 8.5-10.5 [place] 852652-07-27 09:07:00 Test Item Value Reference Range Interpretation Comments Total Protein (test code = Total 5.7 6.4-8.4 Protein) [place] 852652-07-27 09:07:00 Test Item Value Reference Range Interpretation Comments Albumin Lvl (test code = Albumin Lvl) 2.6 3.5-5.0 [place] 852652-07-27 09:07:00 Test Item Value Reference Range Interpretation Comments ALT (test code = ALT) 18 See_Comment [Auto mated message] The system which ge nerated this result transmit lavon reference range : <=65. The reference range was not used to interpr et this result as dionne l/abnormal. [place] 852652-07-27 09:07:00 Test Item Value Reference Range Interpretation Comments AST (test code = AST) 28 See_Comment [Auto mated message] The system which ge nerated this result transmit lavon reference range : <=37. The reference range was not used to interpr et this result as dionne l/abnormal. [place] 852652-07-27 09:07:00 Test Item Value Reference Range Interpretation Comments Alk Phos (test code = Alk Phos) 44 39-136 [place] 852652-07-27 09:07:00 Test Item Value Reference Range Interpretation Comments Bili Total (test code = Bili Total) 1.1 0.2-1.3 [place] 852652-07-27 09:07:00 Test Item Value Reference Range Interpretation Comments AGAP (test code = AGAP) 10.2 10.0-20.0 [place] 852652-07-27 09:07:00 Test Item Value Reference Range Interpretation Comments B/C Ratio (test code = B/C Ratio) 31 1 6-25 [place] 852652-07-27 09:07:00 Test Item Value Reference Range Interpretation Comments Globulin (test code = Globulin) 3.1 2.7-4.2 [place] 852652-07-27 09:07:00 Test Item Value Reference Range Interpretation Comments A/G Ratio (test code = A/G Ratio) 0.8 1 0.7-1.6 [place] 852652-07-27 09:07:00 Test Item Value Reference Range Interpretation Comments eGFR (test code = eGFR) 59 [place] 778932-07-27 09:07:00 Test Item Value Reference Range Interpretation Comments WBC (test code = WBC) 7.2 3.7-10.4 [place] 778932-07-27 09:07:00 Test Item Value Reference Range Interpretation Comments RBC (test code = RBC) 3.06 4.20-5.40 [place] 778932-07-27 09:07:00 Test Item Value Reference Range Interpretation Comments Hgb (test code = Hgb) 7.4 12.0-16.0 [place] 778932-07-27 09:07:00 Test Item Value Reference Range Interpretation Comments Hct (test code = Hct) 22.5 36.0-48.0 [place] 778932-07-27 09:07:00 Test Item Value Reference Range Interpretation Comments MCV (test code = MCV) 73.6 80.0-98.0 [place] 778932-07-27 09:07:00 Test Item Value Reference Range Interpretation Comments MCH (test code = MCH) 24.2 pg 27.0-31.0 [place] 778932-07-27 09:07:00 Test Item Value Reference Range Interpretation Comments MCHC (test code = MCHC) 32.9 32.0-36.0 [place] 778932-07-27 09:07:00 Test Item Value Reference Range Interpretation Comments RDW (test code = RDW) 20.8 11.5-14.5 [place] [address]-07-27 09:07:00 Test Item Value Reference Range Interpretation Comments Platelet (test code = Platelet) 286 133-450 [facility] CenterZvdbjfxXCSMWZWIFN1277-20-93 09:07:00 Test Item Value Reference Range Interpretation Comments MPV (test code = MPV) 7.4 7.4-10.4 [place] 778932-07-27 09:07:00 Test Item Value Reference Range Interpretation Comments Segs (test code = Segs) 73.8 45.0-75.0 [place] 778932-07-27 09:07:00 Test Item Value Reference Range Interpretation Comments Lymphocytes (test code = Lymphocytes) 17.2 20.0-40.0 [place] 778932-07-27 09:07:00 Test Item Value Reference Range Interpretation Comments Monocytes (test code = Monocytes) 8.8 2.0-12.0 [place] 778932-07-27 09:07:00 Test Item Value Reference Range Interpretation Comments Neutrophils # (test code = Neutrophils 5.3 1.5-8.1 #) [place] 778932-07-27 09:07:00 Test Item Value Reference Range Interpretation Comments Lymphocytes # (test code = Lymphocytes 1.2 1.0-5.5 #) [place] 778932-07-27 09:07:00 Test Item Value Reference Range Interpretation Comments Monocytes # (test code 0.6 See_Comment [Aut omated message] The = Monocytes #) system which generated this result tra nsmitted reference range : <=0.8. The reference r hugo was not used to int erpret this result as normal/abnormal . [facility] CenterSkpjdqkADTTVMOIBD1280-09-04 09:07:00 Test Item Value Reference Range Interpretation Comments Microcyte (test code = 1+ *ABN*(06/15/22 Microcyte) 4:07 AM) [place] 852652-07-27 09:07:00 Test Item Value Reference Range Interpretation Comments Glucose Lvl (test code = Glucose Lvl) 108 70-99 [place] 852652-07-27 09:07:00 Test Item Value Reference Range Interpretation Comments BUN (test code = BUN) 29 -22 [place] 852652-07-27 09:07:00 Test Item Value Reference Range Interpretation Comments Creatinine Lvl (test code = Creatinine 0.94 0.50-1.40 Lvl) [place] 852652-07-27 09:07:00 Test Item Value Reference Range Interpretation Comments Sodium Lvl (test code = Sodium Lvl) 131 135-145 [place] 852652-07-27 09:07:00 Test Item Value Reference Range Interpretation Comments Potassium Lvl (test code = Potassium 3.2 3.5-5.1 Lvl) [place] 852652-07-27 09:07:00 Test Item Value Reference Range Interpretation Comments Chloride Lvl (test code = Chloride Lvl) 93 95-109 [place] 852652-07-27 09:07:00 Test Item Value Reference Range Interpretation Comments CO2 (test code = CO2) 31 24-32 [place] 852652-07-27 09:07:00 Test Item Value Reference Range Interpretation Comments Calcium Lvl (test code = Calcium Lvl) 8.0 8.5-10.5 [place] 852652-07-27 09:07:00 Test Item Value Reference Range Interpretation Comments Total Protein (test code = Total 5.7 6.4-8.4 Protein) [place] 852652-07-27 09:07:00 Test Item Value Reference Range Interpretation Comments Albumin Lvl (test code = Albumin Lvl) 2.6 3.5-5.0 [place] 852652-07-27 09:07:00 Test Item Value Reference Range Interpretation Comments ALT (test code = ALT) 18 See_Comment [Auto mated message] The system which ge nerated this result transmit lavon reference range : <=65. The reference range was not used to interpr et this result as dionne l/abnormal. [facility] [id number] 09:07:00 Test Item Value Reference Range Interpretation Comments AST (test code = AST) 28 See_Comment [Auto mated message] The system which ge nerated this result transmit lavon reference range : <=37. The reference range was not used to interpr et this result as dionne l/abnormal. [facility] [id number] 09:07:00 Test Item Value Reference Range Interpretation Comments Alk Phos (test code = Alk Phos) 44 39-136 [facility] [id number] 09:07:00 Test Item Value Reference Range Interpretation Comments Bili Total (test code = Bili Total) 1.1 0.2-1.3 [facility] [id number] 09:07:00 Test Item Value Reference Range Interpretation Comments AGAP (test code = AGAP) 10.2 10.0-20.0 [facility] [id number] 09:07:00 Test Item Value Reference Range Interpretation Comments B/C Ratio (test code = B/C Ratio) 31 1 6-25 [facility] [id number] 09:07:00 Test Item Value Reference Range Interpretation Comments Globulin (test code = Globulin) 3.1 2.7-4.2 [facility] [id number] 09:07:00 Test Item Value Reference Range Interpretation Comments A/G Ratio (test code = A/G Ratio) 0.8 1 0.7-1.6 [facility] [id number] 09:07:00 Test Item Value Reference Range Interpretation Comments eGFR (test code = eGFR) 59 [facility]GhznzlwPJKPIHTOKX8938-36-62 09:07:00 Test Item Value Reference Range Interpretation Comments WBC (test code = WBC) 7.2 3.7-10.4 [facility]villeDqjksteLJBFNVBMCS5454-07-93 09:07:00 Test Item Value Reference Range Interpretation Comments RBC (test code = RBC) 3.06 4.20-5.40 [facility] CenterVpqlwunVWYONLRVPF8379-90-39 09:07:00 Test Item Value Reference Range Interpretation Comments Hgb (test code = Hgb) 7.4 12.0-16.0 [facility] CenterSfcakztMCKVUJPOTY0415-74-95 09:07:00 Test Item Value Reference Range Interpretation Comments Hct (test code = Hct) 22.5 36.0-48.0 [facility] CenterKvwiizmGHJTSOEKEK6040-52-79 09:07:00 Test Item Value Reference Range Interpretation Comments MCV (test code = MCV) 73.6 80.0-98.0 [facility] CenterBkzynlvFMRWIVCMEP2029-05-57 09:07:00 Test Item Value Reference Range Interpretation Comments MCH (test code = MCH) 24.2 pg 27.0-31.0 [facility] CenterIcgktmdTTXPEGKNRS2848-09-25 09:07:00 Test Item Value Reference Range Interpretation Comments MCHC (test code = MCHC) 32.9 32.0-36.0 [facility] CenterYcdzywzPGPMWSKBID3109-39-32 09:07:00 Test Item Value Reference Range Interpretation Comments RDW (test code = RDW) 20.8 11.5-14.5 [facility] CenterTflpqerGFUVUIARQQ1410-95-97 09:07:00 Test Item Value Reference Range Interpretation Comments Platelet (test code = Platelet) 286 133-450 [facility] CenterGevytnjOOWRMHAIOE3829-67-56 09:07:00 Test Item Value Reference Range Interpretation Comments MPV (test code = MPV) 7.4 7.4-10.4 [facility] CenterXtlstgdCRPUBVBAUA0520-44-21 09:07:00 Test Item Value Reference Range Interpretation Comments Segs (test code = Segs) 73.8 45.0-75.0 [facility] CenterSynrorkYVXLORMAIW9879-16-01 09:07:00 Test Item Value Reference Range Interpretation Comments Lymphocytes (test code = Lymphocytes) 17.2 20.0-40.0 [facility] CenterBmafdwnAOHRCQZYZM1632-58-85 09:07:00 Test Item Value Reference Range Interpretation Comments Monocytes (test code = Monocytes) 8.8 2.0-12.0 [facility] CenterMxlihrsLUCWMYQCXB6968-59-82 09:07:00 Test Item Value Reference Range Interpretation Comments Neutrophils # (test code = Neutrophils 5.3 1.5-8.1 #) [place] 778932-07-27 09:07:00 Test Item Value Reference Range Interpretation Comments Lymphocytes # (test code = Lymphocytes 1.2 1.0-5.5 #) [place] 778932-07-27 09:07:00 Test Item Value Reference Range Interpretation Comments Monocytes # (test code 0.6 See_Comment [Aut omated message] The = Monocytes #) system which generated this result tra nsmitted reference range : <=0.8. The reference r hugo was not used to int erpret this result as normal/abnormal . [place] 778932-07-27 09:07:00 Test Item Value Reference Range Interpretation Comments Microcyte (test code = 1+ *ABN*(06/15/22 Microcyte) 4:07 AM) [place] 852652-07-27 09:07:00 Test Item Value Reference Range Interpretation Comments Glucose Lvl (test code = Glucose Lvl) 108 70-99 [place] 852652-07-27 09:07:00 Test Item Value Reference Range Interpretation Comments BUN (test code = BUN) 29 06-10 [place] 852652-07-27 09:07:00 Test Item Value Reference Range Interpretation Comments Creatinine Lvl (test code = Creatinine 0.94 0.50-1.40 Lvl) [place] 852652-07-27 09:07:00 Test Item Value Reference Range Interpretation Comments Sodium Lvl (test code = Sodium Lvl) 131 135-145 [place] 852652-07-27 09:07:00 Test Item Value Reference Range Interpretation Comments Potassium Lvl (test code = Potassium 3.2 3.5-5.1 Lvl) [place] 852652-07-27 09:07:00 Test Item Value Reference Range Interpretation Comments Chloride Lvl (test code = Chloride Lvl) 93 95-109 [place] 852652-07-27 09:07:00 Test Item Value Reference Range Interpretation Comments CO2 (test code = CO2) 31 24-32 [place] 852652-07-27 09:07:00 Test Item Value Reference Range Interpretation Comments Calcium Lvl (test code = Calcium Lvl) 8.0 8.5-10.5 [place] 852652-07-27 09:07:00 Test Item Value Reference Range Interpretation Comments Total Protein (test code = Total 5.7 6.4-8.4 Protein) [place] 852652-07-27 09:07:00 Test Item Value Reference Range Interpretation Comments Albumin Lvl (test code = Albumin Lvl) 2.6 3.5-5.0 [place] 852652-07-27 09:07:00 Test Item Value Reference Range Interpretation Comments ALT (test code = ALT) 18 See_Comment [Auto mated message] The system which ge nerated this result transmit lavon reference range : <=65. The reference range was not used to interpr et this result as dionne l/abnormal. [place] 852652-07-27 09:07:00 Test Item Value Reference Range Interpretation Comments AST (test code = AST) 28 See_Comment [Auto mated message] The system which ge nerated this result transmit lavon reference range : <=37. The reference range was not used to interpr et this result as dionne l/abnormal. [place] 852652-07-27 09:07:00 Test Item Value Reference Range Interpretation Comments Alk Phos (test code = Alk Phos) 44 39-136 [place] 852652-07-27 09:07:00 Test Item Value Reference Range Interpretation Comments Bili Total (test code = Bili Total) 1.1 0.2-1.3 [place] 852652-07-27 09:07:00 Test Item Value Reference Range Interpretation Comments AGAP (test code = AGAP) 10.2 10.0-20.0 [place] 852652-07-27 09:07:00 Test Item Value Reference Range Interpretation Comments B/C Ratio (test code = B/C Ratio) 31 1 6-25 [place] 852652-07-27 09:07:00 Test Item Value Reference Range Interpretation Comments Globulin (test code = Globulin) 3.1 2.7-4.2 [place] 852652-07-27 09:07:00 Test Item Value Reference Range Interpretation Comments A/G Ratio (test code = A/G Ratio) 0.8 1 0.7-1.6 [place] 852652-07-27 09:07:00 Test Item Value Reference Range Interpretation Comments eGFR (test code = eGFR) 59 [place] 778932-07-27 09:07:00 Test Item Value Reference Range Interpretation Comments WBC (test code = WBC) 7.2 3.7-10.4 [facility] CenterZobekrpQQLQIWAACP9621-69-75 09:07:00 Test Item Value Reference Range Interpretation Comments RBC (test code = RBC) 3.06 4.20-5.40 [place] 778932-07-27 09:07:00 Test Item Value Reference Range Interpretation Comments Hgb (test code = Hgb) 7.4 12.0-16.0 [place] 778932-07-27 09:07:00 Test Item Value Reference Range Interpretation Comments Hct (test code = Hct) 22.5 36.0-48.0 [place] 778932-07-27 09:07:00 Test Item Value Reference Range Interpretation Comments MCV (test code = MCV) 73.6 80.0-98.0 [place] 778932-07-27 09:07:00 Test Item Value Reference Range Interpretation Comments MCH (test code = MCH) 24.2 pg 27.0-31.0 [facility] CenterKblibdjRCOYXYEYPD8533-50-31 09:07:00 Test Item Value Reference Range Interpretation Comments MCHC (test code = MCHC) 32.9 32.0-36.0 [facility] CenterZpuhtafCBIRDIAVBI0483-34-92 09:07:00 Test Item Value Reference Range Interpretation Comments RDW (test code = RDW) 20.8 11.5-14.5 [facility] CenterShkwwauLYKVQJLJGV0168-38-83 09:07:00 Test Item Value Reference Range Interpretation Comments Platelet (test code = Platelet) 286 133-450 [facility] CenterQtwqtjnIMDXBXJPGR0495-18-45 09:07:00 Test Item Value Reference Range Interpretation Comments MPV (test code = MPV) 7.4 7.4-10.4 [place] 778932-07-27 09:07:00 Test Item Value Reference Range Interpretation Comments Segs (test code = Segs) 73.8 45.0-75.0 [place] 778932-07-27 09:07:00 Test Item Value Reference Range Interpretation Comments Lymphocytes (test code = Lymphocytes) 17.2 20.0-40.0 [place] 778932-07-27 09:07:00 Test Item Value Reference Range Interpretation Comments Monocytes (test code = Monocytes) 8.8 2.0-12.0 [place] [address]-07-27 09:07:00 Test Item Value Reference Range Interpretation Comments Neutrophils # (test code = Neutrophils 5.3 1.5-8.1 #) [place] 778932-07-27 09:07:00 Test Item Value Reference Range Interpretation Comments Lymphocytes # (test code = Lymphocytes 1.2 1.0-5.5 #) [place] [address]-07-27 09:07:00 Test Item Value Reference Range Interpretation Comments Monocytes # (test code 0.6 See_Comment [Aut omated message] The = Monocytes #) system which generated this result tra nsmitted reference range : <=0.8. The reference r hugo was not used to int erpret this result as normal/abnormal . [place] 125[address]-07-27 09:07:00 Test Item Value Reference Range Interpretation Comments Microcyte (test code = 1+ *ABN*(06/15/22 Microcyte) 4:07 AM) [place] 852652-07-27 09:07:00 Test Item Value Reference Range Interpretation Comments Glucose Lvl (test code = Glucose Lvl) 108 70-99 [place] 852652-07-27 09:07:00 Test Item Value Reference Range Interpretation Comments BUN (test code = BUN) 29 - [place] 852652-07-27 09:07:00 Test Item Value Reference Range Interpretation Comments Creatinine Lvl (test code = Creatinine 0.94 0.50-1.40 Lvl) [place] 852652-07-27 09:07:00 Test Item Value Reference Range Interpretation Comments Sodium Lvl (test code = Sodium Lvl) 131 135-145 [place] 852652-07-27 09:07:00 Test Item Value Reference Range Interpretation Comments Potassium Lvl (test code = Potassium 3.2 3.5-5.1 Lvl) [place] 852652-07-27 09:07:00 Test Item Value Reference Range Interpretation Comments Chloride Lvl (test code = Chloride Lvl) 93 95-109 [place] 852652-07-27 09:07:00 Test Item Value Reference Range Interpretation Comments CO2 (test code = CO2) 31 24-32 [facility] [id number] 09:07:00 Test Item Value Reference Range Interpretation Comments Calcium Lvl (test code = Calcium Lvl) 8.0 8.5-10.5 [facility] [id number] 09:07:00 Test Item Value Reference Range Interpretation Comments Total Protein (test code = Total 5.7 6.4-8.4 Protein) [facility] [id number] 09:07:00 Test Item Value Reference Range Interpretation Comments Albumin Lvl (test code = Albumin Lvl) 2.6 3.5-5.0 [facility] [id number] 09:07:00 Test Item Value Reference Range Interpretation Comments ALT (test code = ALT) 18 See_Comment [Auto mated message] The system which ge nerated this result transmit lavon reference range : <=65. The reference range was not used to interpr et this result as dionne l/abnormal. [facility] [id number] 09:07:00 Test Item Value Reference Range Interpretation Comments AST (test code = AST) 28 See_Comment [Auto mated message] The system which ge nerated this result transmit lavon reference range : <=37. The reference range was not used to interpr et this result as dionne l/abnormal. [facility] [id number] 09:07:00 Test Item Value Reference Range Interpretation Comments Alk Phos (test code = Alk Phos) 44 39-136 [facility] [id number] 09:07:00 Test Item Value Reference Range Interpretation Comments Bili Total (test code = Bili Total) 1.1 0.2-1.3 [facility] [id number] 09:07:00 Test Item Value Reference Range Interpretation Comments AGAP (test code = AGAP) 10.2 10.0-20.0 [facility] [id number] 09:07:00 Test Item Value Reference Range Interpretation Comments B/C Ratio (test code = B/C Ratio) 31 1 6-25 [facility] [id number] 09:07:00 Test Item Value Reference Range Interpretation Comments Globulin (test code = Globulin) 3.1 2.7-4.2 [facility] [employer] [id number] 09:07:00 Test Item Value Reference Range Interpretation Comments A/G Ratio (test code = A/G Ratio) 0.8 1 0.7-1.6 [facility]2022-07-27 09:07:00 Test Item Value Reference Range Interpretation Comments eGFR (test code = eGFR) 59 [facility]keqrghWVBYQFNPZR6462[facility]55-24 09:07:00 Test Item Value Reference Range Interpretation Comments WBC (test code = WBC) 7.2 3.7-10.4 [place] 778932-07-27 09:07:00 Test Item Value Reference Range Interpretation Comments RBC (test code = RBC) 3.06 4.20-5.40 [place] 778932-07-27 09:07:00 Test Item Value Reference Range Interpretation Comments Hgb (test code = Hgb) 7.4 12.0-16.0 [place] [address]-07-27 09:07:00 Test Item Value Reference Range Interpretation Comments Hct (test code = Hct) 22.5 36.0-48.0 [place] 778932-07-27 09:07:00 Test Item Value Reference Range Interpretation Comments MCV (test code = MCV) 73.6 80.0-98.0 [place] 778932-07-27 09:07:00 Test Item Value Reference Range Interpretation Comments MCH (test code = MCH) 24.2 pg 27.0-31.0 [facility] CenterEygdajkUMOCQOXQMD6814-41-60 09:07:00 Test Item Value Reference Range Interpretation Comments MCHC (test code = MCHC) 32.9 32.0-36.0 [place] 778932-07-27 09:07:00 Test Item Value Reference Range Interpretation Comments RDW (test code = RDW) 20.8 11.5-14.5 [place] 778932-07-27 09:07:00 Test Item Value Reference Range Interpretation Comments Platelet (test code = Platelet) 286 133-450 [facility] CenterKbhyykpXPAPOHNAXK3037-30-07 09:07:00 Test Item Value Reference Range Interpretation Comments MPV (test code = MPV) 7.4 7.4-10.4 [place] 778932-07-27 09:07:00 Test Item Value Reference Range Interpretation Comments Segs (test code = Segs) 73.8 45.0-75.0 [place] 778932-07-27 09:07:00 Test Item Value Reference Range Interpretation Comments Lymphocytes (test code = Lymphocytes) 17.2 20.0-40.0 [place] 778932-07-27 09:07:00 Test Item Value Reference Range Interpretation Comments Monocytes (test code = Monocytes) 8.8 2.0-12.0 [place] 778932-07-27 09:07:00 Test Item Value Reference Range Interpretation Comments Neutrophils # (test code = Neutrophils 5.3 1.5-8.1 #) [place] 778932-07-27 09:07:00 Test Item Value Reference Range Interpretation Comments Lymphocytes # (test code = Lymphocytes 1.2 1.0-5.5 #) [place] 778932-07-27 09:07:00 Test Item Value Reference Range Interpretation Comments Monocytes # (test code 0.6 See_Comment [Aut omated message] The = Monocytes #) system which generated this result tra nsmitted reference range : <=0.8. The reference r hugo was not used to int erpret this result as normal/abnormal . [place] 778932-07-27 09:07:00 Test Item Value Reference Range Interpretation Comments Microcyte (test code = 1+ *ABN*(06/15/22 Microcyte) 4:07 AM) [place] 852652-07-27 09:07:00 Test Item Value Reference Range Interpretation Comments Glucose Lvl (test code = Glucose Lvl) 108 70-99 [place] 852652-07-27 09:07:00 Test Item Value Reference Range Interpretation Comments BUN (test code = BUN) 29 - [place] 852652-07-27 09:07:00 Test Item Value Reference Range Interpretation Comments Creatinine Lvl (test code = Creatinine 0.94 0.50-1.40 Lvl) [place] 852652-07-27 09:07:00 Test Item Value Reference Range Interpretation Comments Sodium Lvl (test code = Sodium Lvl) 131 135-145 [place] 852652-07-27 09:07:00 Test Item Value Reference Range Interpretation Comments Potassium Lvl (test code = Potassium 3.2 3.5-5.1 Lvl) [place] 852652-07-27 09:07:00 Test Item Value Reference Range Interpretation Comments Chloride Lvl (test code = Chloride Lvl) 93 95-109 [place] 852652-07-27 09:07:00 Test Item Value Reference Range Interpretation Comments CO2 (test code = CO2) 31 24-32 [place] 852652-07-27 09:07:00 Test Item Value Reference Range Interpretation Comments Calcium Lvl (test code = Calcium Lvl) 8.0 8.5-10.5 [place] [address]-07-27 09:07:00 Test Item Value Reference Range Interpretation Comments Total Protein (test code = Total 5.7 6.4-8.4 Protein) [place] 852652-07-27 09:07:00 Test Item Value Reference Range Interpretation Comments Albumin Lvl (test code = Albumin Lvl) 2.6 3.5-5.0 [place] 852652-07-27 09:07:00 Test Item Value Reference Range Interpretation Comments ALT (test code = ALT) 18 See_Comment [Auto mated message] The system which ge nerated this result transmit lavon reference range : <=65. The reference range was not used to interpr et this result as dionne l/abnormal. [facility] [id number] 09:07:00 Test Item Value Reference Range Interpretation Comments AST (test code = AST) 28 See_Comment [Auto mated message] The system which ge nerated this result transmit lavon reference range : <=37. The reference range was not used to interpr et this result as dionne l/abnormal. [facility] [id number] 09:07:00 Test Item Value Reference Range Interpretation Comments Alk Phos (test code = Alk Phos) 44 39-136 [place] 852652-07-27 09:07:00 Test Item Value Reference Range Interpretation Comments Bili Total (test code = Bili Total) 1.1 0.2-1.3 [place] 852652-07-27 09:07:00 Test Item Value Reference Range Interpretation Comments AGAP (test code = AGAP) 10.2 10.0-20.0 [facility] [id number] 09:07:00 Test Item Value Reference Range Interpretation Comments B/C Ratio (test code = B/C Ratio) 31 1 6-25 [place] 852652-07-27 09:07:00 Test Item Value Reference Range Interpretation Comments Globulin (test code = Globulin) 3.1 2.7-4.2 [place] 852652-07-27 09:07:00 Test Item Value Reference Range Interpretation Comments A/G Ratio (test code = A/G Ratio) 0.8 1 0.7-1.6 [place] 852652-07-27 09:07:00 Test Item Value Reference Range Interpretation Comments eGFR (test code = eGFR) 59 [place] 778932-07-27 09:07:00 Test Item Value Reference Range Interpretation Comments WBC (test code = WBC) 7.2 3.7-10.4 [place] 778932-07-27 09:07:00 Test Item Value Reference Range Interpretation Comments RBC (test code = RBC) 3.06 4.20-5.40 [place] 778932-07-27 09:07:00 Test Item Value Reference Range Interpretation Comments Hgb (test code = Hgb) 7.4 12.0-16.0 [place] [address]-07-27 09:07:00 Test Item Value Reference Range Interpretation Comments Hct (test code = Hct) 22.5 36.0-48.0 [place] 778932-07-27 09:07:00 Test Item Value Reference Range Interpretation Comments MCV (test code = MCV) 73.6 80.0-98.0 [place] 778932-07-27 09:07:00 Test Item Value Reference Range Interpretation Comments MCH (test code = MCH) 24.2 pg 27.0-31.0 [place] 778932-07-27 09:07:00 Test Item Value Reference Range Interpretation Comments MCHC (test code = MCHC) 32.9 32.0-36.0 [place] 778932-07-27 09:07:00 Test Item Value Reference Range Interpretation Comments RDW (test code = RDW) 20.8 11.5-14.5 [place] 778932-07-27 09:07:00 Test Item Value Reference Range Interpretation Comments Platelet (test code = Platelet) 286 133-450 [place] 778932-07-27 09:07:00 Test Item Value Reference Range Interpretation Comments MPV (test code = MPV) 7.4 7.4-10.4 [place] 778932-07-27 09:07:00 Test Item Value Reference Range Interpretation Comments Segs (test code = Segs) 73.8 45.0-75.0 [place] 778932-07-27 09:07:00 Test Item Value Reference Range Interpretation Comments Lymphocytes (test code = Lymphocytes) 17.2 20.0-40.0 [place] 778932-07-27 09:07:00 Test Item Value Reference Range Interpretation Comments Monocytes (test code = Monocytes) 8.8 2.0-12.0 [place] 778932-07-27 09:07:00 Test Item Value Reference Range Interpretation Comments Neutrophils # (test code = Neutrophils 5.3 1.5-8.1 #) [place] 778932-07-27 09:07:00 Test Item Value Reference Range Interpretation Comments Lymphocytes # (test code = Lymphocytes 1.2 1.0-5.5 #) [place] 778932-07-27 09:07:00 Test Item Value Reference Range Interpretation Comments Monocytes # (test code 0.6 See_Comment [Aut omated message] The = Monocytes #) system which generated this result tra nsmitted reference range : <=0.8. The reference r hugo was not used to int erpret this result as normal/abnormal . [facility] CenterNlffhmvTYAAXHLETS0881-68-65 09:07:00 Test Item Value Reference Range Interpretation Comments Microcyte (test code = 1+ *ABN*(06/15/22 Microcyte) 4:07 AM) [place] 852652-07-27 09:07:00 Test Item Value Reference Range Interpretation Comments Glucose Lvl (test code = Glucose Lvl) 108 70-99 [facility]2022-07-27 09:07:00 Test Item Value Reference Range Interpretation Comments BUN (test code = BUN) 29 - [place] 852652-07-27 09:07:00 Test Item Value Reference Range Interpretation Comments Creatinine Lvl (test code = Creatinine 0.94 0.50-1.40 Lvl) [place] 852652-07-27 09:07:00 Test Item Value Reference Range Interpretation Comments Sodium Lvl (test code = Sodium Lvl) 131 135-145 [place] 852652-07-27 09:07:00 Test Item Value Reference Range Interpretation Comments Potassium Lvl (test code = Potassium 3.2 3.5-5.1 Lvl) [place] 852652-07-27 09:07:00 Test Item Value Reference Range Interpretation Comments Chloride Lvl (test code = Chloride Lvl) 93 95-109 [place] 852652-07-27 09:07:00 Test Item Value Reference Range Interpretation Comments CO2 (test code = CO2) 31 24-32 [place] 852652-07-27 09:07:00 Test Item Value Reference Range Interpretation Comments Calcium Lvl (test code = Calcium Lvl) 8.0 8.5-10.5 [place] 852652-07-27 09:07:00 Test Item Value Reference Range Interpretation Comments Total Protein (test code = Total 5.7 6.4-8.4 Protein) [place] 852652-07-27 09:07:00 Test Item Value Reference Range Interpretation Comments Albumin Lvl (test code = Albumin Lvl) 2.6 3.5-5.0 [place] 852652-07-27 09:07:00 Test Item Value Reference Range Interpretation Comments ALT (test code = ALT) 18 See_Comment [Auto mated message] The system which ge nerated this result transmit lavon reference range : <=65. The reference range was not used to interpr et this result as dionne l/abnormal. [place] [address]-07-27 09:07:00 Test Item Value Reference Range Interpretation Comments AST (test code = AST) 28 See_Comment [Auto mated message] The system which ge nerated this result transmit lavon reference range : <=37. The reference range was not used to interpr et this result as dionne l/abnormal. [place] 852652-07-27 09:07:00 Test Item Value Reference Range Interpretation Comments Alk Phos (test code = Alk Phos) 44 39-136 [place] 852652-07-27 09:07:00 Test Item Value Reference Range Interpretation Comments Bili Total (test code = Bili Total) 1.1 0.2-1.3 [facility]2022-07-27 09:07:00 Test Item Value Reference Range Interpretation Comments AGAP (test code = AGAP) 10.2 10.0-20.0 [facility]2022-07-27 09:07:00 Test Item Value Reference Range Interpretation Comments B/C Ratio (test code = B/C Ratio) 31 1 6-25 [place] 852652-07-27 09:07:00 Test Item Value Reference Range Interpretation Comments Globulin (test code = Globulin) 3.1 2.7-4.2 [place] 852652-07-27 09:07:00 Test Item Value Reference Range Interpretation Comments A/G Ratio (test code = A/G Ratio) 0.8 1 0.7-1.6 [place] 852652-07-27 09:07:00 Test Item Value Reference Range Interpretation Comments eGFR (test code = eGFR) 59 [facility] CenterIqqgbfvHYFQESLAMN3034-01-71 09:07:00 Test Item Value Reference Range Interpretation Comments WBC (test code = WBC) 7.2 3.7-10.4 [place] 778932-07-27 09:07:00 Test Item Value Reference Range Interpretation Comments RBC (test code = RBC) 3.06 4.20-5.40 [place] 778932-07-27 09:07:00 Test Item Value Reference Range Interpretation Comments Hgb (test code = Hgb) 7.4 12.0-16.0 [place] 778932-07-27 09:07:00 Test Item Value Reference Range Interpretation Comments Hct (test code = Hct) 22.5 36.0-48.0 [place] 778932-07-27 09:07:00 Test Item Value Reference Range Interpretation Comments MCV (test code = MCV) 73.6 80.0-98.0 [place] 778932-07-27 09:07:00 Test Item Value Reference Range Interpretation Comments MCH (test code = MCH) 24.2 pg 27.0-31.0 [place] 778932-07-27 09:07:00 Test Item Value Reference Range Interpretation Comments MCHC (test code = MCHC) 32.9 32.0-36.0 [address]07-27 09:07:00 Test Item Value Reference Range Interpretation Comments RDW (test code = RDW) 20.8 11.5-14.5 [place] 778932-07-27 09:07:00 Test Item Value Reference Range Interpretation Comments Platelet (test code = Platelet) 286 133-450 [facility] CenterJsthzuzBGCKHLYDRV3245-30-09 09:07:00 Test Item Value Reference Range Interpretation Comments MPV (test code = MPV) 7.4 7.4-10.4 [facility] CenterUfsauynMBIRFUZVVI6265-62-83 09:07:00 Test Item Value Reference Range Interpretation Comments Segs (test code = Segs) 73.8 45.0-75.0 [place] 778932-07-27 09:07:00 Test Item Value Reference Range Interpretation Comments Lymphocytes (test code = Lymphocytes) 17.2 20.0-40.0 [facility] CenterZmfbppuOYWUBGSUWK5116-24-83 09:07:00 Test Item Value Reference Range Interpretation Comments Monocytes (test code = Monocytes) 8.8 2.0-12.0 [facility] CenterHfbhpbaOLAEYYAKPC5994-97-82 09:07:00 Test Item Value Reference Range Interpretation Comments Neutrophils # (test code = Neutrophils 5.3 1.5-8.1 #) [facility] CenterImqwrvpIYPRLNEYYI9568-86-36 09:07:00 Test Item Value Reference Range Interpretation Comments Lymphocytes # (test code = Lymphocytes 1.2 1.0-5.5 #) [facility] CenterSabvbomVKESXOFHHL0674-17-09 09:07:00 Test Item Value Reference Range Interpretation Comments Monocytes # (test code 0.6 See_Comment [Aut omated message] The = Monocytes #) system which generated this result tra nsmitted reference range : <=0.8. The reference r hugo was not used to int erpret this result as normal/abnormal . [facility] CenterWixfayuVPOQUJQYNV0514-08-97 09:07:00 Test Item Value Reference Range Interpretation Comments Microcyte (test code = 1+ *ABN*(06/15/22 Microcyte) 4:07 AM) [facility]2022-07-27 09:07:00 Test Item Value Reference Range Interpretation Comments Glucose Lvl (test code = Glucose Lvl) 108 70-99 [facility]2022-07-27 09:07:00 Test Item Value Reference Range Interpretation Comments BUN (test code = BUN) 29 7-22 [place] 852652-07-27 09:07:00 Test Item Value Reference Range Interpretation Comments Creatinine Lvl (test code = Creatinine 0.94 0.50-1.40 Lvl) [place] 852652-07-27 09:07:00 Test Item Value Reference Range Interpretation Comments Sodium Lvl (test code = Sodium Lvl) 131 135-145 [place] 852652-07-27 09:07:00 Test Item Value Reference Range Interpretation Comments Potassium Lvl (test code = Potassium 3.2 3.5-5.1 Lvl) [place] 852652-07-27 09:07:00 Test Item Value Reference Range Interpretation Comments Chloride Lvl (test code = Chloride Lvl) 93 95-109 [place] 852652-07-27 09:07:00 Test Item Value Reference Range Interpretation Comments CO2 (test code = CO2) 31 24-32 [place] 852652-07-27 09:07:00 Test Item Value Reference Range Interpretation Comments Calcium Lvl (test code = Calcium Lvl) 8.0 8.5-10.5 [place] 852652-07-27 09:07:00 Test Item Value Reference Range Interpretation Comments Total Protein (test code = Total 5.7 6.4-8.4 Protein) [place] 852652-07-27 09:07:00 Test Item Value Reference Range Interpretation Comments Albumin Lvl (test code = Albumin Lvl) 2.6 3.5-5.0 [place] 852652-07-27 09:07:00 Test Item Value Reference Range Interpretation Comments ALT (test code = ALT) 18 See_Comment [Auto mated message] The system which ge nerated this result transmit lavon reference range : <=65. The reference range was not used to interpr et this result as dionne l/abnormal. [place] 852652-07-27 09:07:00 Test Item Value Reference Range Interpretation Comments AST (test code = AST) 28 See_Comment [Auto mated message] The system which ge nerated this result transmit lavon reference range : <=37. The reference range was not used to interpr et this result as dionne l/abnormal. [place] 852652-07-27 09:07:00 Test Item Value Reference Range Interpretation Comments Alk Phos (test code = Alk Phos) 44 39-136 [place] 852652-07-27 09:07:00 Test Item Value Reference Range Interpretation Comments Bili Total (test code = Bili Total) 1.1 0.2-1.3 [place] 852652-07-27 09:07:00 Test Item Value Reference Range Interpretation Comments AGAP (test code = AGAP) 10.2 10.0-20.0 [place] 852652-07-27 09:07:00 Test Item Value Reference Range Interpretation Comments B/C Ratio (test code = B/C Ratio) 31 1 6-25 [place] 852652-07-27 09:07:00 Test Item Value Reference Range Interpretation Comments Globulin (test code = Globulin) 3.1 2.7-4.2 [place] 852652-07-27 09:07:00 Test Item Value Reference Range Interpretation Comments A/G Ratio (test code = A/G Ratio) 0.8 1 0.7-1.6 [place] 852652-07-27 09:07:00 Test Item Value Reference Range Interpretation Comments eGFR (test code = eGFR) 59 [facility] CenterJngwnbuESDEGLRJKB4009-01-20 09:07:00 Test Item Value Reference Range Interpretation Comments WBC (test code = WBC) 7.2 3.7-10.4 [place] 778932-07-27 09:07:00 Test Item Value Reference Range Interpretation Comments RBC (test code = RBC) 3.06 4.20-5.40 [place] 778932-07-27 09:07:00 Test Item Value Reference Range Interpretation Comments Hgb (test code = Hgb) 7.4 12.0-16.0 [place] 778932-07-27 09:07:00 Test Item Value Reference Range Interpretation Comments Hct (test code = Hct) 22.5 36.0-48.0 [place] 778932-07-27 09:07:00 Test Item Value Reference Range Interpretation Comments MCV (test code = MCV) 73.6 80.0-98.0 [place] 778932-07-27 09:07:00 Test Item Value Reference Range Interpretation Comments MCH (test code = MCH) 24.2 pg 27.0-31.0 [facility] CenterPrslarrRAHVUQAJNM8142-17-76 09:07:00 Test Item Value Reference Range Interpretation Comments MCHC (test code = MCHC) 32.9 32.0-36.0 [place] 778932-07-27 09:07:00 Test Item Value Reference Range Interpretation Comments RDW (test code = RDW) 20.8 11.5-14.5 [place] 778932-07-27 09:07:00 Test Item Value Reference Range Interpretation Comments Platelet (test code = Platelet) 286 133-450 [facility] CenterRtnsvpoDRGSADDFGR9947-21-44 09:07:00 Test Item Value Reference Range Interpretation Comments MPV (test code = MPV) 7.4 7.4-10.4 [place] 778932-07-27 09:07:00 Test Item Value Reference Range Interpretation Comments Segs (test code = Segs) 73.8 45.0-75.0 [facility] CenterBwhupglVVBKANRJXS7174-96-52 09:07:00 Test Item Value Reference Range Interpretation Comments Lymphocytes (test code = Lymphocytes) 17.2 20.0-40.0 [facility] CenterDtrejxgHBOYXBAYGJ9732-06-64 09:07:00 Test Item Value Reference Range Interpretation Comments Monocytes (test code = Monocytes) 8.8 2.0-12.0 [facility] CenterIqwjoeuCVMLEPQXXP7323-73-57 09:07:00 Test Item Value Reference Range Interpretation Comments Neutrophils # (test code = Neutrophils 5.3 1.5-8.1 #) [facility] CenterJlrwxaxQDFMZUGKPB7133-28-55 09:07:00 Test Item Value Reference Range Interpretation Comments Lymphocytes # (test code = Lymphocytes 1.2 1.0-5.5 #) [place] 778932-07-27 09:07:00 Test Item Value Reference Range Interpretation Comments Monocytes # (test code 0.6 See_Comment [Aut omated message] The = Monocytes #) system which generated this result tra nsmitted reference range : <=0.8. The reference r hugo was not used to int erpret this result as normal/abnormal . [facility] CenterXznmxpiDUBHEYMYFC3257-62-59 09:07:00 Test Item Value Reference Range Interpretation Comments Microcyte (test code = 1+ *ABN*(06/15/22 Microcyte) 4:07 AM) [place] 852652-07-27 09:07:00 Test Item Value Reference Range Interpretation Comments Glucose Lvl (test code = Glucose Lvl) 108 70-99 [place] 852652-07-27 09:07:00 Test Item Value Reference Range Interpretation Comments BUN (test code = BUN) 29 - [place] 852652-07-27 09:07:00 Test Item Value Reference Range Interpretation Comments Creatinine Lvl (test code = Creatinine 0.94 0.50-1.40 Lvl) [place] 852652-07-27 09:07:00 Test Item Value Reference Range Interpretation Comments Sodium Lvl (test code = Sodium Lvl) 131 135-145 [place] 852652-07-27 09:07:00 Test Item Value Reference Range Interpretation Comments Potassium Lvl (test code = Potassium 3.2 3.5-5.1 Lvl) [place] 852652-07-27 09:07:00 Test Item Value Reference Range Interpretation Comments Chloride Lvl (test code = Chloride Lvl) 93 95-109 [place] 852652-07-27 09:07:00 Test Item Value Reference Range Interpretation Comments CO2 (test code = CO2) 31 24-32 [place] 852652-07-27 09:07:00 Test Item Value Reference Range Interpretation Comments Calcium Lvl (test code = Calcium Lvl) 8.0 8.5-10.5 [place] 852652-07-27 09:07:00 Test Item Value Reference Range Interpretation Comments Total Protein (test code = Total 5.7 6.4-8.4 Protein) [place] 852652-07-27 09:07:00 Test Item Value Reference Range Interpretation Comments Albumin Lvl (test code = Albumin Lvl) 2.6 3.5-5.0 [place] 852652-07-27 09:07:00 Test Item Value Reference Range Interpretation Comments ALT (test code = ALT) 18 See_Comment [Auto mated message] The system which ge nerated this result transmit lavon reference range : <=65. The reference range was not used to interpr et this result as dionne l/abnormal. [place] 852652-07-27 09:07:00 Test Item Value Reference Range Interpretation Comments AST (test code = AST) 28 See_Comment [Auto mated message] The system which ge nerated this result transmit lavon reference range : <=37. The reference range was not used to interpr et this result as dionne l/abnormal. [place] 852652-07-27 09:07:00 Test Item Value Reference Range Interpretation Comments Alk Phos (test code = Alk Phos) 44 39-136 [place] 852652-07-27 09:07:00 Test Item Value Reference Range Interpretation Comments Bili Total (test code = Bili Total) 1.1 0.2-1.3 [place] 852652-07-27 09:07:00 Test Item Value Reference Range Interpretation Comments AGAP (test code = AGAP) 10.2 10.0-20.0 [place] 852652-07-27 09:07:00 Test Item Value Reference Range Interpretation Comments B/C Ratio (test code = B/C Ratio) 31 1 6-25 [place] 852652-07-27 09:07:00 Test Item Value Reference Range Interpretation Comments Globulin (test code = Globulin) 3.1 2.7-4.2 [place] 852652-07-27 09:07:00 Test Item Value Reference Range Interpretation Comments A/G Ratio (test code = A/G Ratio) 0.8 1 0.7-1.6 [place] 852652-07-27 09:07:00 Test Item Value Reference Range Interpretation Comments eGFR (test code = eGFR) 59 [place] 778932-07-27 09:07:00 Test Item Value Reference Range Interpretation Comments WBC (test code = WBC) 7.2 3.7-10.4 [place] [address]-07-27 09:07:00 Test Item Value Reference Range Interpretation Comments RBC (test code = RBC) 3.06 4.20-5.40 [place] 778932-07-27 09:07:00 Test Item Value Reference Range Interpretation Comments Hgb (test code = Hgb) 7.4 12.0-16.0 [place] 778932-07-27 09:07:00 Test Item Value Reference Range Interpretation Comments Hct (test code = Hct) 22.5 36.0-48.0 [place] 778932-07-27 09:07:00 Test Item Value Reference Range Interpretation Comments MCV (test code = MCV) 73.6 80.0-98.0 [place] 778932-07-27 09:07:00 Test Item Value Reference Range Interpretation Comments MCH (test code = MCH) 24.2 pg 27.0-31.0 [facility]XH4532[facility]-69 09:07:00 Test Item Value Reference Range Interpretation Comments MCHC (test code = MCHC) 32.9 32.0-36.0 [place] 778932-07-27 09:07:00 Test Item Value Reference Range Interpretation Comments RDW (test code = RDW) 20.8 11.5-14.5 [place] 778932-07-27 09:07:00 Test Item Value Reference Range Interpretation Comments Platelet (test code = Platelet) 286 133-450 [facility]MphrrtsJWTYZSGMLP7215-17-29 09:07:00 Test Item Value Reference Range Interpretation Comments MPV (test code = MPV) 7.4 7.4-10.4 [place] 778932-07-27 09:07:00 Test Item Value Reference Range Interpretation Comments Segs (test code = Segs) 73.8 45.0-75.0 [place] 778932-07-27 09:07:00 Test Item Value Reference Range Interpretation Comments Lymphocytes (test code = Lymphocytes) 17.2 20.0-40.0 [place] 778932-07-27 09:07:00 Test Item Value Reference Range Interpretation Comments Monocytes (test code = Monocytes) 8.8 2.0-12.0 [place] 778932-07-27 09:07:00 Test Item Value Reference Range Interpretation Comments Neutrophils # (test code = Neutrophils 5.3 1.5-8.1 #) [place] 778932-07-27 09:07:00 Test Item Value Reference Range Interpretation Comments Lymphocytes # (test code = Lymphocytes 1.2 1.0-5.5 #) [place] 778932-07-27 09:07:00 Test Item Value Reference Range Interpretation Comments Monocytes # (test code 0.6 See_Comment [Aut omated message] The = Monocytes #) system which generated this result tra nsmitted reference range : <=0.8. The reference r hugo was not used to int erpret this result as normal/abnormal . [facility] CenterWgkbecoXQNEXSHFCV8469-55-75 09:07:00 Test Item Value Reference Range Interpretation Comments Microcyte (test code = 1+ *ABN*(06/15/22 Microcyte) 4:07 AM) [place] 852652-07-27 09:07:00 Test Item Value Reference Range Interpretation Comments Glucose Lvl (test code = Glucose Lvl) 108 70-99 [place] 852652-07-27 09:07:00 Test Item Value Reference Range Interpretation Comments BUN (test code = BUN) 29 -22 [place] 852652-07-27 09:07:00 Test Item Value Reference Range Interpretation Comments Creatinine Lvl (test code = Creatinine 0.94 0.50-1.40 Lvl) [place] 852652-07-27 09:07:00 Test Item Value Reference Range Interpretation Comments Sodium Lvl (test code = Sodium Lvl) 131 135-145 [place] 852652-07-27 09:07:00 Test Item Value Reference Range Interpretation Comments Potassium Lvl (test code = Potassium 3.2 3.5-5.1 Lvl) [place] 852652-07-27 09:07:00 Test Item Value Reference Range Interpretation Comments Chloride Lvl (test code = Chloride Lvl) 93 95-109 [facility]2022-07-27 09:07:00 Test Item Value Reference Range Interpretation Comments CO2 (test code = CO2) 31 24-32 [facility]2022-07-27 09:07:00 Test Item Value Reference Range Interpretation Comments Calcium Lvl (test code = Calcium Lvl) 8.0 8.5-10.5 [place] 852652-07-27 09:07:00 Test Item Value Reference Range Interpretation Comments Total Protein (test code = Total 5.7 6.4-8.4 Protein) [place] 852652-07-27 09:07:00 Test Item Value Reference Range Interpretation Comments Albumin Lvl (test code = Albumin Lvl) 2.6 3.5-5.0 [place] 852652-07-27 09:07:00 Test Item Value Reference Range Interpretation Comments ALT (test code = ALT) 18 See_Comment [Auto mated message] The system which ge nerated this result transmit lavon reference range : <=65. The reference range was not used to interpr et this result as dionne l/abnormal. [facility] [id number] 09:07:00 Test Item Value Reference Range Interpretation Comments AST (test code = AST) 28 See_Comment [Auto mated message] The system which ge nerated this result transmit lavon reference range : <=37. The reference range was not used to interpr et this result as dionne l/abnormal. [facility] [id number] 09:07:00 Test Item Value Reference Range Interpretation Comments Alk Phos (test code = Alk Phos) 44 39-136 [facility] [id number] 09:07:00 Test Item Value Reference Range Interpretation Comments Bili Total (test code = Bili Total) 1.1 0.2-1.3 [facility] [id number] 09:07:00 Test Item Value Reference Range Interpretation Comments AGAP (test code = AGAP) 10.2 10.0-20.0 [facility] [id number] 09:07:00 Test Item Value Reference Range Interpretation Comments B/C Ratio (test code = B/C Ratio) 31 1 6-25 [facility] [id number] 09:07:00 Test Item Value Reference Range Interpretation Comments Globulin (test code = Globulin) 3.1 2.7-4.2 [facility] [id number] 09:07:00 Test Item Value Reference Range Interpretation Comments A/G Ratio (test code = A/G Ratio) 0.8 1 0.7-1.6 [facility] [id number] 09:07:00 Test Item Value Reference Range Interpretation Comments eGFR (test code = eGFR) 59 [facility]villeQgcnltzTHQZNRPWRP6766-07-91 09:07:00 Test Item Value Reference Range Interpretation Comments WBC (test code = WBC) 7.2 3.7-10.4 [facility]villeVezdlouVJUXNZDCQX1391-89-48 09:07:00 Test Item Value Reference Range Interpretation Comments RBC (test code = RBC) 3.06 4.20-5.40 [place] 778932-07-27 09:07:00 Test Item Value Reference Range Interpretation Comments Hgb (test code = Hgb) 7.4 12.0-16.0 [facility] CenterHpzlsvkYIBIKGTUPB0796-00-08 09:07:00 Test Item Value Reference Range Interpretation Comments Hct (test code = Hct) 22.5 36.0-48.0 [facility] CenterFmrsqbeDTTDZDAEUZ1048-57-14 09:07:00 Test Item Value Reference Range Interpretation Comments MCV (test code = MCV) 73.6 80.0-98.0 [place] 778932-07-27 09:07:00 Test Item Value Reference Range Interpretation Comments MCH (test code = MCH) 24.2 pg 27.0-31.0 [facility] CenterBpykhzlTDUDMXJBZK8991-18-05 09:07:00 Test Item Value Reference Range Interpretation Comments MCHC (test code = MCHC) 32.9 32.0-36.0 [facility] CenterDffnpxdBIZAWEGQPL5336-28-74 09:07:00 Test Item Value Reference Range Interpretation Comments RDW (test code = RDW) 20.8 11.5-14.5 [facility] CenterVqkrsyjQRVOTEDQAL7120-18-38 09:07:00 Test Item Value Reference Range Interpretation Comments Platelet (test code = Platelet) 286 133-450 [facility] CenterKbibnrnMQZAXRMSSR0970-88-62 09:07:00 Test Item Value Reference Range Interpretation Comments MPV (test code = MPV) 7.4 7.4-10.4 [facility] CenterEqxgyecSIFNWMQUCZ2316-65-35 09:07:00 Test Item Value Reference Range Interpretation Comments Segs (test code = Segs) 73.8 45.0-75.0 [facility] CenterLkcvmahJWSRFCDDDY9161-85-67 09:07:00 Test Item Value Reference Range Interpretation Comments Lymphocytes (test code = Lymphocytes) 17.2 20.0-40.0 [facility] CenterEuucmooZWOTESPQTD0346-30-99 09:07:00 Test Item Value Reference Range Interpretation Comments Monocytes (test code = Monocytes) 8.8 2.0-12.0 [place] 778932-07-27 09:07:00 Test Item Value Reference Range Interpretation Comments Neutrophils # (test code = Neutrophils 5.3 1.5-8.1 #) [facility] CenterIflraumLLFDUCBEKX5567-93-17 09:07:00 Test Item Value Reference Range Interpretation Comments Lymphocytes # (test code = Lymphocytes 1.2 1.0-5.5 #) [place] 778932-07-27 09:07:00 Test Item Value Reference Range Interpretation Comments Monocytes # (test code 0.6 See_Comment [Aut omated message] The = Monocytes #) system which generated this result tra nsmitted reference range : <=0.8. The reference r hugo was not used to int erpret this result as normal/abnormal . [place] 778932-07-27 09:07:00 Test Item Value Reference Range Interpretation Comments Microcyte (test code = 1+ *ABN*(06/15/22 Microcyte) 4:07 AM) [place] 852652-07-27 09:07:00 Test Item Value Reference Range Interpretation Comments Glucose Lvl (test code = Glucose Lvl) 108 70-99 [place] 852652-07-27 09:07:00 Test Item Value Reference Range Interpretation Comments BUN (test code = BUN) 29 - [place] 852652-07-27 09:07:00 Test Item Value Reference Range Interpretation Comments Creatinine Lvl (test code = Creatinine 0.94 0.50-1.40 Lvl) [place] 852652-07-27 09:07:00 Test Item Value Reference Range Interpretation Comments Sodium Lvl (test code = Sodium Lvl) 131 135-145 [place] 852652-07-27 09:07:00 Test Item Value Reference Range Interpretation Comments Potassium Lvl (test code = Potassium 3.2 3.5-5.1 Lvl) [place] 852652-07-27 09:07:00 Test Item Value Reference Range Interpretation Comments Chloride Lvl (test code = Chloride Lvl) 93 95-109 [place] 852652-07-27 09:07:00 Test Item Value Reference Range Interpretation Comments CO2 (test code = CO2) 31 24-32 [place] 852652-07-27 09:07:00 Test Item Value Reference Range Interpretation Comments Calcium Lvl (test code = Calcium Lvl) 8.0 8.5-10.5 [place] 852652-07-27 09:07:00 Test Item Value Reference Range Interpretation Comments Total Protein (test code = Total 5.7 6.4-8.4 Protein) [place] 852652-07-27 09:07:00 Test Item Value Reference Range Interpretation Comments Albumin Lvl (test code = Albumin Lvl) 2.6 3.5-5.0 [place] 852652-07-27 09:07:00 Test Item Value Reference Range Interpretation Comments ALT (test code = ALT) 18 See_Comment [Auto mated message] The system which ge nerated this result transmit lavon reference range : <=65. The reference range was not used to interpr et this result as dionne l/abnormal. [place] 852652-07-27 09:07:00 Test Item Value Reference Range Interpretation Comments AST (test code = AST) 28 See_Comment [Auto mated message] The system which ge nerated this result transmit lavon reference range : <=37. The reference range was not used to interpr et this result as dionne l/abnormal. [facility]2022-07-27 09:07:00 Test Item Value Reference Range Interpretation Comments Alk Phos (test code = Alk Phos) 44 39-136 [place] 852652-07-27 09:07:00 Test Item Value Reference Range Interpretation Comments Bili Total (test code = Bili Total) 1.1 0.2-1.3 [facility]2022-07-27 09:07:00 Test Item Value Reference Range Interpretation Comments AGAP (test code = AGAP) 10.2 10.0-20.0 [facility]2022-07-27 09:07:00 Test Item Value Reference Range Interpretation Comments B/C Ratio (test code = B/C Ratio) 31 1 6-25 [place] 852652-07-27 09:07:00 Test Item Value Reference Range Interpretation Comments Globulin (test code = Globulin) 3.1 2.7-4.2 [place] 852652-07-27 09:07:00 Test Item Value Reference Range Interpretation Comments A/G Ratio (test code = A/G Ratio) 0.8 1 0.7-1.6 [place] 852652-07-27 09:07:00 Test Item Value Reference Range Interpretation Comments eGFR (test code = eGFR) 59 [facility] CenterZqunsitIARLCULORQ9835-18-32 09:07:00 Test Item Value Reference Range Interpretation Comments WBC (test code = WBC) 7.2 3.7-10.4 [place] 778932-07-27 09:07:00 Test Item Value Reference Range Interpretation Comments RBC (test code = RBC) 3.06 4.20-5.40 [facility] CenterKtahlvcNLFSXITXBA7423-63-72 09:07:00 Test Item Value Reference Range Interpretation Comments Hgb (test code = Hgb) 7.4 12.0-16.0 [place] 778932-07-27 09:07:00 Test Item Value Reference Range Interpretation Comments Hct (test code = Hct) 22.5 36.0-48.0 [place] 778932-07-27 09:07:00 Test Item Value Reference Range Interpretation Comments MCV (test code = MCV) 73.6 80.0-98.0 [place] 778932-07-27 09:07:00 Test Item Value Reference Range Interpretation Comments MCH (test code = MCH) 24.2 pg 27.0-31.0 [facility] CenterVpvhjumSEWLPOLKPG5449-03-30 09:07:00 Test Item Value Reference Range Interpretation Comments MCHC (test code = MCHC) 32.9 32.0-36.0 [facility] CenterWzqfpwcLTEZUBUZXO7497-16-83 09:07:00 Test Item Value Reference Range Interpretation Comments RDW (test code = RDW) 20.8 11.5-14.5 [place] 778932-07-27 09:07:00 Test Item Value Reference Range Interpretation Comments Platelet (test code = Platelet) 286 133-450 [facility] CenterPztwazbBXCMHWHMKQ9222-56-88 09:07:00 Test Item Value Reference Range Interpretation Comments MPV (test code = MPV) 7.4 7.4-10.4 [place] 778932-07-27 09:07:00 Test Item Value Reference Range Interpretation Comments Segs (test code = Segs) 73.8 45.0-75.0 [place] 778932-07-27 09:07:00 Test Item Value Reference Range Interpretation Comments Lymphocytes (test code = Lymphocytes) 17.2 20.0-40.0 [place] 778932-07-27 09:07:00 Test Item Value Reference Range Interpretation Comments Monocytes (test code = Monocytes) 8.8 2.0-12.0 [place] 125[address]-07-27 09:07:00 Test Item Value Reference Range Interpretation Comments Neutrophils # (test code = Neutrophils 5.3 1.5-8.1 #) [place] 125[address]-07-27 09:07:00 Test Item Value Reference Range Interpretation Comments Lymphocytes # (test code = Lymphocytes 1.2 1.0-5.5 #) [place] [address]-07-27 09:07:00 Test Item Value Reference Range Interpretation Comments Monocytes # (test code 0.6 See_Comment [Aut omated message] The = Monocytes #) system which generated this result tra nsmitted reference range : <=0.8. The reference r hugo was not used to int erpret this result as normal/abnormal . [place] 125[address]-07-27 09:07:00 Test Item Value Reference Range Interpretation Comments Microcyte (test code = 1+ *ABN*(06/15/22 Microcyte) 4:07 AM) [place] 852652-07-27 09:07:00 Test Item Value Reference Range Interpretation Comments Glucose Lvl (test code = Glucose Lvl) 108 70-99 [place] 852652-07-27 09:07:00 Test Item Value Reference Range Interpretation Comments BUN (test code = BUN) 29 - [place] 852652-07-27 09:07:00 Test Item Value Reference Range Interpretation Comments Creatinine Lvl (test code = Creatinine 0.94 0.50-1.40 Lvl) [place] 852652-07-27 09:07:00 Test Item Value Reference Range Interpretation Comments Sodium Lvl (test code = Sodium Lvl) 131 135-145 [place] 852652-07-27 09:07:00 Test Item Value Reference Range Interpretation Comments Potassium Lvl (test code = Potassium 3.2 3.5-5.1 Lvl) [place] 852652-07-27 09:07:00 Test Item Value Reference Range Interpretation Comments Chloride Lvl (test code = Chloride Lvl) 93 95-109 [place] 852652-07-27 09:07:00 Test Item Value Reference Range Interpretation Comments CO2 (test code = CO2) 31 24-32 [facility] [id number] 09:07:00 Test Item Value Reference Range Interpretation Comments Calcium Lvl (test code = Calcium Lvl) 8.0 8.5-10.5 [facility] [id number] 09:07:00 Test Item Value Reference Range Interpretation Comments Total Protein (test code = Total 5.7 6.4-8.4 Protein) [place] 852652-07-27 09:07:00 Test Item Value Reference Range Interpretation Comments Albumin Lvl (test code = Albumin Lvl) 2.6 3.5-5.0 [facility] [id number] 09:07:00 Test Item Value Reference Range Interpretation Comments ALT (test code = ALT) 18 See_Comment [Auto mated message] The system which ge nerated this result transmit lavon reference range : <=65. The reference range was not used to interpr et this result as dionne l/abnormal. [facility] [id number] 09:07:00 Test Item Value Reference Range Interpretation Comments AST (test code = AST) 28 See_Comment [Auto mated message] The system which ge nerated this result transmit lavon reference range : <=37. The reference range was not used to interpr et this result as dionne l/abnormal. [facility] [id number] 09:07:00 Test Item Value Reference Range Interpretation Comments Alk Phos (test code = Alk Phos) 44 39-136 [facility] [id number] 09:07:00 Test Item Value Reference Range Interpretation Comments Bili Total (test code = Bili Total) 1.1 0.2-1.3 [facility] [id number] 09:07:00 Test Item Value Reference Range Interpretation Comments AGAP (test code = AGAP) 10.2 10.0-20.0 [facility] [id number] 09:07:00 Test Item Value Reference Range Interpretation Comments B/C Ratio (test code = B/C Ratio) 31 1 6-25 [facility] [id number] 09:07:00 Test Item Value Reference Range Interpretation Comments Globulin (test code = Globulin) 3.1 2.7-4.2 [facility] [id number] 09:07:00 Test Item Value Reference Range Interpretation Comments A/G Ratio (test code = A/G Ratio) 0.8 1 0.7-1.6 [facility]2022-07-27 09:07:00 Test Item Value Reference Range Interpretation Comments eGFR (test code = eGFR) 59 [place] 778932-07-27 09:07:00 Test Item Value Reference Range Interpretation Comments WBC (test code = WBC) 7.2 3.7-10.4 [place] 778932-07-27 09:07:00 Test Item Value Reference Range Interpretation Comments RBC (test code = RBC) 3.06 4.20-5.40 [place] 778932-07-27 09:07:00 Test Item Value Reference Range Interpretation Comments Hgb (test code = Hgb) 7.4 12.0-16.0 [place] 778932-07-27 09:07:00 Test Item Value Reference Range Interpretation Comments Hct (test code = Hct) 22.5 36.0-48.0 [place] 778932-07-27 09:07:00 Test Item Value Reference Range Interpretation Comments MCV (test code = MCV) 73.6 80.0-98.0 [place] 778932-07-27 09:07:00 Test Item Value Reference Range Interpretation Comments MCH (test code = MCH) 24.2 pg 27.0-31.0 [place] 778932-07-27 09:07:00 Test Item Value Reference Range Interpretation Comments MCHC (test code = MCHC) 32.9 32.0-36.0 [place] 778932-07-27 09:07:00 Test Item Value Reference Range Interpretation Comments RDW (test code = RDW) 20.8 11.5-14.5 [place] 778932-07-27 09:07:00 Test Item Value Reference Range Interpretation Comments Platelet (test code = Platelet) 286 133-450 [facility] CenterHfunpwsHECOCDVPJU9730-61-60 09:07:00 Test Item Value Reference Range Interpretation Comments MPV (test code = MPV) 7.4 7.4-10.4 [place] 778932-07-27 09:07:00 Test Item Value Reference Range Interpretation Comments Segs (test code = Segs) 73.8 45.0-75.0 [place] [address]-07-27 09:07:00 Test Item Value Reference Range Interpretation Comments Lymphocytes (test code = Lymphocytes) 17.2 20.0-40.0 [place] 778932-07-27 09:07:00 Test Item Value Reference Range Interpretation Comments Monocytes (test code = Monocytes) 8.8 2.0-12.0 [place] 778932-07-27 09:07:00 Test Item Value Reference Range Interpretation Comments Neutrophils # (test code = Neutrophils 5.3 1.5-8.1 #) [place] 778932-07-27 09:07:00 Test Item Value Reference Range Interpretation Comments Lymphocytes # (test code = Lymphocytes 1.2 1.0-5.5 #) [place] [address]-07-27 09:07:00 Test Item Value Reference Range Interpretation Comments Monocytes # (test code 0.6 See_Comment [Aut omated message] The = Monocytes #) system which generated this result tra nsmitted reference range : <=0.8. The reference r hugo was not used to int erpret this result as normal/abnormal . [place] 778932-07-27 09:07:00 Test Item Value Reference Range Interpretation Comments Microcyte (test code = 1+ *ABN*(06/15/22 Microcyte) 4:07 AM) [place] 852652-07-27 09:07:00 Test Item Value Reference Range Interpretation Comments Glucose Lvl (test code = Glucose Lvl) 108 70-99 [place] 852652-07-27 09:07:00 Test Item Value Reference Range Interpretation Comments BUN (test code = BUN) 29 - [place] 852652-07-27 09:07:00 Test Item Value Reference Range Interpretation Comments Creatinine Lvl (test code = Creatinine 0.94 0.50-1.40 Lvl) [place] 852652-07-27 09:07:00 Test Item Value Reference Range Interpretation Comments Sodium Lvl (test code = Sodium Lvl) 131 135-145 [place] 852652-07-27 09:07:00 Test Item Value Reference Range Interpretation Comments Potassium Lvl (test code = Potassium 3.2 3.5-5.1 Lvl) [place] 852652-07-27 09:07:00 Test Item Value Reference Range Interpretation Comments Chloride Lvl (test code = Chloride Lvl) 93 95-109 [place] 852652-07-27 09:07:00 Test Item Value Reference Range Interpretation Comments CO2 (test code = CO2) 31 24-32 [place] 852652-07-27 09:07:00 Test Item Value Reference Range Interpretation Comments Calcium Lvl (test code = Calcium Lvl) 8.0 8.5-10.5 [place] 852652-07-27 09:07:00 Test Item Value Reference Range Interpretation Comments Total Protein (test code = Total 5.7 6.4-8.4 Protein) [place] [address]-07-27 09:07:00 Test Item Value Reference Range Interpretation Comments Albumin Lvl (test code = Albumin Lvl) 2.6 3.5-5.0 [place] 852652-07-27 09:07:00 Test Item Value Reference Range Interpretation Comments ALT (test code = ALT) 18 See_Comment [Auto mated message] The system which ge nerated this result transmit lavon reference range : <=65. The reference range was not used to interpr et this result as dionne l/abnormal. [facility] [id number] 09:07:00 Test Item Value Reference Range Interpretation Comments AST (test code = AST) 28 See_Comment [Auto mated message] The system which ge nerated this result transmit lavon reference range : <=37. The reference range was not used to interpr et this result as dionne l/abnormal. [facility] [id number] 09:07:00 Test Item Value Reference Range Interpretation Comments Alk Phos (test code = Alk Phos) 44 39-136 [place] 852652-07-27 09:07:00 Test Item Value Reference Range Interpretation Comments Bili Total (test code = Bili Total) 1.1 0.2-1.3 [place] 852652-07-27 09:07:00 Test Item Value Reference Range Interpretation Comments AGAP (test code = AGAP) 10.2 10.0-20.0 [facility] [id number] 09:07:00 Test Item Value Reference Range Interpretation Comments B/C Ratio (test code = B/C Ratio) 31 1 6-25 [facility]2022-07-27 09:07:00 Test Item Value Reference Range Interpretation Comments Globulin (test code = Globulin) 3.1 2.7-4.2 [facility]2022-07-27 09:07:00 Test Item Value Reference Range Interpretation Comments A/G Ratio (test code = A/G Ratio) 0.8 1 0.7-1.6 [facility]2022-07-27 09:07:00 Test Item Value Reference Range Interpretation Comments eGFR (test code = eGFR) 59 [facility] CenterHvjlyqqYWDXZLKVXE2484-54-50 09:07:00 Test Item Value Reference Range Interpretation Comments WBC (test code = WBC) 7.2 3.7-10.4 [place] 778932-07-27 09:07:00 Test Item Value Reference Range Interpretation Comments RBC (test code = RBC) 3.06 4.20-5.40 [facility] CenterAeenpoyKAEPMHKMDS3257-67-77 09:07:00 Test Item Value Reference Range Interpretation Comments Hgb (test code = Hgb) 7.4 12.0-16.0 [facility] CenterBkeunlzHIROBHJKEM0206-51-16 09:07:00 Test Item Value Reference Range Interpretation Comments Hct (test code = Hct) 22.5 36.0-48.0 [facility] CenterUzonwygYMAEOAJFPU8302-28-01 09:07:00 Test Item Value Reference Range Interpretation Comments MCV (test code = MCV) 73.6 80.0-98.0 [facility] CenterSlrmxovMIWRTJWIGB5350-08-04 09:07:00 Test Item Value Reference Range Interpretation Comments MCH (test code = MCH) 24.2 pg 27.0-31.0 [facility]OtzbkzoSYWFENTUYO3894-87-87 09:07:00 Test Item Value Reference Range Interpretation Comments MCHC (test code = MCHC) 32.9 32.0-36.0 [facility] CenterAljwxqsDRTMKCNSCF3938-61-43 09:07:00 Test Item Value Reference Range Interpretation Comments RDW (test code = RDW) 20.8 11.5-14.5 [facility] CenterBldiwjfZAGVBRBQII6882-68-23 09:07:00 Test Item Value Reference Range Interpretation Comments Platelet (test code = Platelet) 286 133-450 [place] 778932-07-27 09:07:00 Test Item Value Reference Range Interpretation Comments MPV (test code = MPV) 7.4 7.4-10.4 [place] 778932-07-27 09:07:00 Test Item Value Reference Range Interpretation Comments Segs (test code = Segs) 73.8 45.0-75.0 [place] 778932-07-27 09:07:00 Test Item Value Reference Range Interpretation Comments Lymphocytes (test code = Lymphocytes) 17.2 20.0-40.0 [place] [address]-07-27 09:07:00 Test Item Value Reference Range Interpretation Comments Monocytes (test code = Monocytes) 8.8 2.0-12.0 [place] 778932-07-27 09:07:00 Test Item Value Reference Range Interpretation Comments Neutrophils # (test code = Neutrophils 5.3 1.5-8.1 #) [place] 778932-07-27 09:07:00 Test Item Value Reference Range Interpretation Comments Lymphocytes # (test code = Lymphocytes 1.2 1.0-5.5 #) [place] 778932-07-27 09:07:00 Test Item Value Reference Range Interpretation Comments Monocytes # (test code 0.6 See_Comment [Aut omated message] The = Monocytes #) system which generated this result tra nsmitted reference range : <=0.8. The reference r hugo was not used to int erpret this result as normal/abnormal . [facility] CenterTaabveaEDLTFUGADV5234-97-88 09:07:00 Test Item Value Reference Range Interpretation Comments Microcyte (test code = 1+ *ABN*(06/15/22 Microcyte) 4:07 AM) [place] 852652-07-27 09:07:00 Test Item Value Reference Range Interpretation Comments Glucose Lvl (test code = Glucose Lvl) 108 70-99 [place] 852652-07-27 09:07:00 Test Item Value Reference Range Interpretation Comments BUN (test code = BUN) 29 06-10 [place] 852652-07-27 09:07:00 Test Item Value Reference Range Interpretation Comments Creatinine Lvl (test code = Creatinine 0.94 0.50-1.40 Lvl) [place] 852652-07-27 09:07:00 Test Item Value Reference Range Interpretation Comments Sodium Lvl (test code = Sodium Lvl) 131 135-145 [place] 852652-07-27 09:07:00 Test Item Value Reference Range Interpretation Comments Potassium Lvl (test code = Potassium 3.2 3.5-5.1 Lvl) [place] 852652-07-27 09:07:00 Test Item Value Reference Range Interpretation Comments Chloride Lvl (test code = Chloride Lvl) 93 95-109 [place] 852652-07-27 09:07:00 Test Item Value Reference Range Interpretation Comments CO2 (test code = CO2) 31 24-32 [place] 852652-07-27 09:07:00 Test Item Value Reference Range Interpretation Comments Calcium Lvl (test code = Calcium Lvl) 8.0 8.5-10.5 [place] [address]-07-27 09:07:00 Test Item Value Reference Range Interpretation Comments Total Protein (test code = Total 5.7 6.4-8.4 Protein) [place] 852652-07-27 09:07:00 Test Item Value Reference Range Interpretation Comments Albumin Lvl (test code = Albumin Lvl) 2.6 3.5-5.0 [place] 852652-07-27 09:07:00 Test Item Value Reference Range Interpretation Comments ALT (test code = ALT) 18 See_Comment [Auto mated message] The system which ge nerated this result transmit lavon reference range : <=65. The reference range was not used to interpr et this result as dionne l/abnormal. [place] 852652-07-27 09:07:00 Test Item Value Reference Range Interpretation Comments AST (test code = AST) 28 See_Comment [Auto mated message] The system which ge nerated this result transmit lavon reference range : <=37. The reference range was not used to interpr et this result as dionne l/abnormal. [place] 852652-07-27 09:07:00 Test Item Value Reference Range Interpretation Comments Alk Phos (test code = Alk Phos) 44 39-136 [place] [address]-07-27 09:07:00 Test Item Value Reference Range Interpretation Comments Bili Total (test code = Bili Total) 1.1 0.2-1.3 [facility]2022-07-27 09:07:00 Test Item Value Reference Range Interpretation Comments AGAP (test code = AGAP) 10.2 10.0-20.0 [facility]2022-07-27 09:07:00 Test Item Value Reference Range Interpretation Comments B/C Ratio (test code = B/C Ratio) 31 1 6-25 [place] 852652-07-27 09:07:00 Test Item Value Reference Range Interpretation Comments Globulin (test code = Globulin) 3.1 2.7-4.2 [place] 852652-07-27 09:07:00 Test Item Value Reference Range Interpretation Comments A/G Ratio (test code = A/G Ratio) 0.8 1 0.7-1.6 [place] 852652-07-27 09:07:00 Test Item Value Reference Range Interpretation Comments eGFR (test code = eGFR) 59 [facility] CenterChsmufcTFENFWUFVW2488-86-99 09:07:00 Test Item Value Reference Range Interpretation Comments WBC (test code = WBC) 7.2 3.7-10.4 [place] 778932-07-27 09:07:00 Test Item Value Reference Range Interpretation Comments RBC (test code = RBC) 3.06 4.20-5.40 [facility] CenterKjtlmrpGTNOLFTLEU2549-19-48 09:07:00 Test Item Value Reference Range Interpretation Comments Hgb (test code = Hgb) 7.4 12.0-16.0 [place] 778932-07-27 09:07:00 Test Item Value Reference Range Interpretation Comments Hct (test code = Hct) 22.5 36.0-48.0 [place] 778932-07-27 09:07:00 Test Item Value Reference Range Interpretation Comments MCV (test code = MCV) 73.6 80.0-98.0 [place] 778932-07-27 09:07:00 Test Item Value Reference Range Interpretation Comments MCH (test code = MCH) 24.2 pg 27.0-31.0 [place] 778932-07-27 09:07:00 Test Item Value Reference Range Interpretation Comments MCHC (test code = MCHC) 32.9 32.0-36.0 [place] 778932-07-27 09:07:00 Test Item Value Reference Range Interpretation Comments RDW (test code = RDW) 20.8 11.5-14.5 [place] 778932-07-27 09:07:00 Test Item Value Reference Range Interpretation Comments Platelet (test code = Platelet) 286 133-450 [place] 778932-07-27 09:07:00 Test Item Value Reference Range Interpretation Comments MPV (test code = MPV) 7.4 7.4-10.4 [facility] CenterBzbvcatAUNQJEVJSW0772-83-00 09:07:00 Test Item Value Reference Range Interpretation Comments Segs (test code = Segs) 73.8 45.0-75.0 [place] [address]-07-27 09:07:00 Test Item Value Reference Range Interpretation Comments Lymphocytes (test code = Lymphocytes) 17.2 20.0-40.0 [place] 778932-07-27 09:07:00 Test Item Value Reference Range Interpretation Comments Monocytes (test code = Monocytes) 8.8 2.0-12.0 [facility] CenterKbgthnmYFYAHYVSDY4735-02-10 09:07:00 Test Item Value Reference Range Interpretation Comments Neutrophils # (test code = Neutrophils 5.3 1.5-8.1 #) [facility] CenterWfbzqyvNAJLJIVYMJ2523-26-18 09:07:00 Test Item Value Reference Range Interpretation Comments Lymphocytes # (test code = Lymphocytes 1.2 1.0-5.5 #) [facility] CenterAzyeodkIITCEDMCLA4930-57-10 09:07:00 Test Item Value Reference Range Interpretation Comments Monocytes # (test code 0.6 See_Comment [Aut omated message] The = Monocytes #) system which generated this result tra nsmitted reference range : <=0.8. The reference r hugo was not used to int erpret this result as normal/abnormal . [facility] CenterWskawzyNNHWGAAFXS5227-11-30 09:07:00 Test Item Value Reference Range Interpretation Comments Microcyte (test code = 1+ *ABN*(06/15/22 Microcyte) 4:07 AM) [facility]2022-07-27 09:07:00 Test Item Value Reference Range Interpretation Comments Glucose Lvl (test code = Glucose Lvl) 108 70-99 [facility]2022-07-27 09:07:00 Test Item Value Reference Range Interpretation Comments BUN (test code = BUN) 29 7-22 [place] 852652-07-27 09:07:00 Test Item Value Reference Range Interpretation Comments Creatinine Lvl (test code = Creatinine 0.94 0.50-1.40 Lvl) [place] 852652-07-27 09:07:00 Test Item Value Reference Range Interpretation Comments Sodium Lvl (test code = Sodium Lvl) 131 135-145 [place] 852652-07-27 09:07:00 Test Item Value Reference Range Interpretation Comments Potassium Lvl (test code = Potassium 3.2 3.5-5.1 Lvl) [place] [address]-07-27 09:07:00 Test Item Value Reference Range Interpretation Comments Chloride Lvl (test code = Chloride Lvl) 93 95-109 [place] 852652-07-27 09:07:00 Test Item Value Reference Range Interpretation Comments CO2 (test code = CO2) 31 24-32 [place] 852652-07-27 09:07:00 Test Item Value Reference Range Interpretation Comments Calcium Lvl (test code = Calcium Lvl) 8.0 8.5-10.5 [place] 852652-07-27 09:07:00 Test Item Value Reference Range Interpretation Comments Total Protein (test code = Total 5.7 6.4-8.4 Protein) [place] 852652-07-27 09:07:00 Test Item Value Reference Range Interpretation Comments Albumin Lvl (test code = Albumin Lvl) 2.6 3.5-5.0 [place] [address]-07-27 09:07:00 Test Item Value Reference Range Interpretation Comments ALT (test code = ALT) 18 See_Comment [Auto mated message] The system which ge nerated this result transmit lavon reference range : <=65. The reference range was not used to interpr et this result as dionne l/abnormal. [place] 852652-07-27 09:07:00 Test Item Value Reference Range Interpretation Comments AST (test code = AST) 28 See_Comment [Auto mated message] The system which ge nerated this result transmit lavon reference range : <=37. The reference range was not used to interpr et this result as dionne l/abnormal. [address]07-27 09:07:00 Test Item Value Reference Range Interpretation Comments Alk Phos (test code = Alk Phos) 44 39-136 [place] 852652-07-27 09:07:00 Test Item Value Reference Range Interpretation Comments Bili Total (test code = Bili Total) 1.1 0.2-1.3 [place] 852652-07-27 09:07:00 Test Item Value Reference Range Interpretation Comments AGAP (test code = AGAP) 10.2 10.0-20.0 [place] 852652-07-27 09:07:00 Test Item Value Reference Range Interpretation Comments B/C Ratio (test code = B/C Ratio) 31 1 6-25 [place] 852652-07-27 09:07:00 Test Item Value Reference Range Interpretation Comments Globulin (test code = Globulin) 3.1 2.7-4.2 [place] 852652-07-27 09:07:00 Test Item Value Reference Range Interpretation Comments A/G Ratio (test code = A/G Ratio) 0.8 1 0.7-1.6 [place] 852652-07-27 09:07:00 Test Item Value Reference Range Interpretation Comments eGFR (test code = eGFR) 59 [place] 778932-07-27 09:07:00 Test Item Value Reference Range Interpretation Comments WBC (test code = WBC) 7.2 3.7-10.4 [place] 778932-07-27 09:07:00 Test Item Value Reference Range Interpretation Comments RBC (test code = RBC) 3.06 4.20-5.40 [place] 778932-07-27 09:07:00 Test Item Value Reference Range Interpretation Comments Hgb (test code = Hgb) 7.4 12.0-16.0 [place] [address]-07-27 09:07:00 Test Item Value Reference Range Interpretation Comments Hct (test code = Hct) 22.5 36.0-48.0 [place] [address]-07-27 09:07:00 Test Item Value Reference Range Interpretation Comments MCV (test code = MCV) 73.6 80.0-98.0 [place] 778932-07-27 09:07:00 Test Item Value Reference Range Interpretation Comments MCH (test code = MCH) 24.2 pg 27.0-31.0 [place] 778932-07-27 09:07:00 Test Item Value Reference Range Interpretation Comments MCHC (test code = MCHC) 32.9 32.0-36.0 [place] 778932-07-27 09:07:00 Test Item Value Reference Range Interpretation Comments RDW (test code = RDW) 20.8 11.5-14.5 [place] 778932-07-27 09:07:00 Test Item Value Reference Range Interpretation Comments Platelet (test code = Platelet) 286 133-450 [facility] CenterTihjtduHTSCWJLLEH5805-50-25 09:07:00 Test Item Value Reference Range Interpretation Comments MPV (test code = MPV) 7.4 7.4-10.4 [place] 778932-07-27 09:07:00 Test Item Value Reference Range Interpretation Comments Segs (test code = Segs) 73.8 45.0-75.0 [place] 778932-07-27 09:07:00 Test Item Value Reference Range Interpretation Comments Lymphocytes (test code = Lymphocytes) 17.2 20.0-40.0 [place] 778932-07-27 09:07:00 Test Item Value Reference Range Interpretation Comments Monocytes (test code = Monocytes) 8.8 2.0-12.0 [facility] CenterAdzsnixKTYNGYAILO8814-10-40 09:07:00 Test Item Value Reference Range Interpretation Comments Neutrophils # (test code = Neutrophils 5.3 1.5-8.1 #) [facility] CenterUlcrdqyXBXFAFWTFT0033-59-20 09:07:00 Test Item Value Reference Range Interpretation Comments Lymphocytes # (test code = Lymphocytes 1.2 1.0-5.5 #) [place] 778932-07-27 09:07:00 Test Item Value Reference Range Interpretation Comments Monocytes # (test code 0.6 See_Comment [Aut omated message] The = Monocytes #) system which generated this result tra nsmitted reference range : <=0.8. The reference r hugo was not used to int erpret this result as normal/abnormal . [facility] CenterEnizceuNREFASCVQZ1217-01-78 09:07:00 Test Item Value Reference Range Interpretation Comments Microcyte (test code = 1+ *ABN*(06/15/22 Microcyte) 4:07 AM) [place] 852652-07-27 09:07:00 Test Item Value Reference Range Interpretation Comments Glucose Lvl (test code = Glucose Lvl) 108 70-99 [place] 852652-07-27 09:07:00 Test Item Value Reference Range Interpretation Comments BUN (test code = BUN) 29 -22 [place] 852652-07-27 09:07:00 Test Item Value Reference Range Interpretation Comments Creatinine Lvl (test code = Creatinine 0.94 0.50-1.40 Lvl) [place] 852652-07-27 09:07:00 Test Item Value Reference Range Interpretation Comments Sodium Lvl (test code = Sodium Lvl) 131 135-145 [place] 852652-07-27 09:07:00 Test Item Value Reference Range Interpretation Comments Potassium Lvl (test code = Potassium 3.2 3.5-5.1 Lvl) [place] 852652-07-27 09:07:00 Test Item Value Reference Range Interpretation Comments Chloride Lvl (test code = Chloride Lvl) 93 95-109 [place] 852652-07-27 09:07:00 Test Item Value Reference Range Interpretation Comments CO2 (test code = CO2) 31 24-32 [place] 852652-07-27 09:07:00 Test Item Value Reference Range Interpretation Comments Calcium Lvl (test code = Calcium Lvl) 8.0 8.5-10.5 [place] 852652-07-27 09:07:00 Test Item Value Reference Range Interpretation Comments Total Protein (test code = Total 5.7 6.4-8.4 Protein) [place] 852652-07-27 09:07:00 Test Item Value Reference Range Interpretation Comments Albumin Lvl (test code = Albumin Lvl) 2.6 3.5-5.0 [place] 852652-07-27 09:07:00 Test Item Value Reference Range Interpretation Comments ALT (test code = ALT) 18 See_Comment [Auto mated message] The system which ge nerated this result transmit lavon reference range : <=65. The reference range was not used to interpr et this result as dionne l/abnormal. [place] 852652-07-27 09:07:00 Test Item Value Reference Range Interpretation Comments AST (test code = AST) 28 See_Comment [Auto mated message] The system which ge nerated this result transmit lavon reference range : <=37. The reference range was not used to interpr et this result as dionne l/abnormal. [place] 852652-07-27 09:07:00 Test Item Value Reference Range Interpretation Comments Alk Phos (test code = Alk Phos) 44 39-136 [place] 852652-07-27 09:07:00 Test Item Value Reference Range Interpretation Comments Bili Total (test code = Bili Total) 1.1 0.2-1.3 [place] 852652-07-27 09:07:00 Test Item Value Reference Range Interpretation Comments AGAP (test code = AGAP) 10.2 10.0-20.0 [place] 852652-07-27 09:07:00 Test Item Value Reference Range Interpretation Comments B/C Ratio (test code = B/C Ratio) 31 1 6-25 [place] 852652-07-27 09:07:00 Test Item Value Reference Range Interpretation Comments Globulin (test code = Globulin) 3.1 2.7-4.2 [place] 852652-07-27 09:07:00 Test Item Value Reference Range Interpretation Comments A/G Ratio (test code = A/G Ratio) 0.8 1 0.7-1.6 [place] 852652-07-27 09:07:00 Test Item Value Reference Range Interpretation Comments eGFR (test code = eGFR) 59 [place] 778932-07-27 09:07:00 Test Item Value Reference Range Interpretation Comments WBC (test code = WBC) 7.2 3.7-10.4 [place] [address]-07-27 09:07:00 Test Item Value Reference Range Interpretation Comments RBC (test code = RBC) 3.06 4.20-5.40 [place] 778932-07-27 09:07:00 Test Item Value Reference Range Interpretation Comments Hgb (test code = Hgb) 7.4 12.0-16.0 [place] [address]-07-27 09:07:00 Test Item Value Reference Range Interpretation Comments Hct (test code = Hct) 22.5 36.0-48.0 [facility] CenterWgvkikdUGDMCIIEPI9316-14-45 09:07:00 Test Item Value Reference Range Interpretation Comments MCV (test code = MCV) 73.6 80.0-98.0 [facility] CenterZjpabdvTAECYQFLVX2840-13-37 09:07:00 Test Item Value Reference Range Interpretation Comments MCH (test code = MCH) 24.2 pg 27.0-31.0 [facility] CenterScxreziWUGDWVAOSN3931-91-72 09:07:00 Test Item Value Reference Range Interpretation Comments MCHC (test code = MCHC) 32.9 32.0-36.0 [facility] CenterCcaybqrVRVFAZWKLA0276-29-89 09:07:00 Test Item Value Reference Range Interpretation Comments RDW (test code = RDW) 20.8 11.5-14.5 [place] 778932-07-27 09:07:00 Test Item Value Reference Range Interpretation Comments Platelet (test code = Platelet) 286 133-450 [facility] CenterOwowjifZPEXPTLIMU1819-75-21 09:07:00 Test Item Value Reference Range Interpretation Comments MPV (test code = MPV) 7.4 7.4-10.4 [facility] CenterNpgxmuaZDCBTJRAMZ9464-17-16 09:07:00 Test Item Value Reference Range Interpretation Comments Segs (test code = Segs) 73.8 45.0-75.0 [facility] CenterBkjjdsdWWDTJLHZFX9015-97-30 09:07:00 Test Item Value Reference Range Interpretation Comments Lymphocytes (test code = Lymphocytes) 17.2 20.0-40.0 [facility] CenterPhvaloqIUHAOWNFPW5670-40-74 09:07:00 Test Item Value Reference Range Interpretation Comments Monocytes (test code = Monocytes) 8.8 2.0-12.0 [place] 778932-07-27 09:07:00 Test Item Value Reference Range Interpretation Comments Neutrophils # (test code = Neutrophils 5.3 1.5-8.1 #) [facility] CenterFpkzpubNFTHWGUNRL1248-21-21 09:07:00 Test Item Value Reference Range Interpretation Comments Lymphocytes # (test code = Lymphocytes 1.2 1.0-5.5 #) [facility] CenterZaqqsbnGKBZNKLABR5061-38-82 09:07:00 Test Item Value Reference Range Interpretation Comments Monocytes # (test code 0.6 See_Comment [Aut omated message] The = Monocytes #) system which generated this result tra nsmitted reference range : <=0.8. The reference r hugo was not used to int erpret this result as normal/abnormal . [facility] CenterFhytyjxFKDTFKLCHP0739-81-18 09:07:00 Test Item Value Reference Range Interpretation Comments Microcyte (test code = 1+ *ABN*(06/15/22 Microcyte) 4:07 AM) [place] 852652-07-27 09:07:00 Test Item Value Reference Range Interpretation Comments Glucose Lvl (test code = Glucose Lvl) 108 70-99 [place] 852652-07-27 09:07:00 Test Item Value Reference Range Interpretation Comments BUN (test code = BUN) 29 - [place] 852652-07-27 09:07:00 Test Item Value Reference Range Interpretation Comments Creatinine Lvl (test code = Creatinine 0.94 0.50-1.40 Lvl) [place] [address]-07-27 09:07:00 Test Item Value Reference Range Interpretation Comments Sodium Lvl (test code = Sodium Lvl) 131 135-145 [place] 852652-07-27 09:07:00 Test Item Value Reference Range Interpretation Comments Potassium Lvl (test code = Potassium 3.2 3.5-5.1 Lvl) [place] 852652-07-27 09:07:00 Test Item Value Reference Range Interpretation Comments Chloride Lvl (test code = Chloride Lvl) 93 95-109 [place] 852652-07-27 09:07:00 Test Item Value Reference Range Interpretation Comments CO2 (test code = CO2) 31 24-32 [place] 852652-07-27 09:07:00 Test Item Value Reference Range Interpretation Comments Calcium Lvl (test code = Calcium Lvl) 8.0 8.5-10.5 [place] 852652-07-27 09:07:00 Test Item Value Reference Range Interpretation Comments Total Protein (test code = Total 5.7 6.4-8.4 Protein) [place] 852652-07-27 09:07:00 Test Item Value Reference Range Interpretation Comments Albumin Lvl (test code = Albumin Lvl) 2.6 3.5-5.0 [place] 852652-07-27 09:07:00 Test Item Value Reference Range Interpretation Comments ALT (test code = ALT) 18 See_Comment [Auto mated message] The system which ge nerated this result transmit lavon reference range : <=65. The reference range was not used to interpr et this result as dionne l/abnormal. [facility] [id number] 09:07:00 Test Item Value Reference Range Interpretation Comments AST (test code = AST) 28 See_Comment [Auto mated message] The system which ge nerated this result transmit lavon reference range : <=37. The reference range was not used to interpr et this result as dionne l/abnormal. [facility] CLDQF6510-04-24 09:07:00 Test Item Value Reference Range Interpretation Comments Alk Phos (test code = Alk Phos) 44 39-136 [facility] [id number] 09:07:00 Test Item Value Reference Range Interpretation Comments Bili Total (test code = Bili Total) 1.1 0.2-1.3 [facility] [id number] 09:07:00 Test Item Value Reference Range Interpretation Comments AGAP (test code = AGAP) 10.2 10.0-20.0 [facility] [id number] 09:07:00 Test Item Value Reference Range Interpretation Comments B/C Ratio (test code = B/C Ratio) 31 1 6-25 [facility] [id number] 09:07:00 Test Item Value Reference Range Interpretation Comments Globulin (test code = Globulin) 3.1 2.7-4.2 [facility] [id number] 09:07:00 Test Item Value Reference Range Interpretation Comments A/G Ratio (test code = A/G Ratio) 0.8 1 0.7-1.6 [facility] [id number] 09:07:00 Test Item Value Reference Range Interpretation Comments eGFR (test code = eGFR) 59 [facility]BoqezbsIPZVCRZXOD6374-17-88 09:07:00 Test Item Value Reference Range Interpretation Comments WBC (test code = WBC) 7.2 3.7-10.4 [facility]villeOnzbnvaZONUHEGAPB4600-28-15 09:07:00 Test Item Value Reference Range Interpretation Comments RBC (test code = RBC) 3.06 4.20-5.40 [place] 778932-07-27 09:07:00 Test Item Value Reference Range Interpretation Comments Hgb (test code = Hgb) 7.4 12.0-16.0 [place] 778932-07-27 09:07:00 Test Item Value Reference Range Interpretation Comments Hct (test code = Hct) 22.5 36.0-48.0 [place] 778932-07-27 09:07:00 Test Item Value Reference Range Interpretation Comments MCV (test code = MCV) 73.6 80.0-98.0 [place] 778932-07-27 09:07:00 Test Item Value Reference Range Interpretation Comments MCH (test code = MCH) 24.2 pg 27.0-31.0 [facility] CenterZqutflpOFWQSJWHXD3512-32-56 09:07:00 Test Item Value Reference Range Interpretation Comments MCHC (test code = MCHC) 32.9 32.0-36.0 [place] 778932-07-27 09:07:00 Test Item Value Reference Range Interpretation Comments RDW (test code = RDW) 20.8 11.5-14.5 [place] 778932-07-27 09:07:00 Test Item Value Reference Range Interpretation Comments Platelet (test code = Platelet) 286 133-450 [facility] CenterKsntisdCLBYFTPIEE5591-24-13 09:07:00 Test Item Value Reference Range Interpretation Comments MPV (test code = MPV) 7.4 7.4-10.4 [place] 778932-07-27 09:07:00 Test Item Value Reference Range Interpretation Comments Segs (test code = Segs) 73.8 45.0-75.0 [place] 778932-07-27 09:07:00 Test Item Value Reference Range Interpretation Comments Lymphocytes (test code = Lymphocytes) 17.2 20.0-40.0 [place] 778932-07-27 09:07:00 Test Item Value Reference Range Interpretation Comments Monocytes (test code = Monocytes) 8.8 2.0-12.0 [place] 778932-07-27 09:07:00 Test Item Value Reference Range Interpretation Comments Neutrophils # (test code = Neutrophils 5.3 1.5-8.1 #) [facility]ByheedwTVFPAKHFDS7202-77-69 09:07:00 Test Item Value Reference Range Interpretation Comments Lymphocytes # (test code = Lymphocytes 1.2 1.0-5.5 #) [place] 778932-07-27 09:07:00 Test Item Value Reference Range Interpretation Comments Monocytes # (test code 0.6 See_Comment [Aut omated message] The = Monocytes #) system which generated this result tra nsmitted reference range : <=0.8. The reference r hugo was not used to int erpret this result as normal/abnormal . [place] 778932-07-27 09:07:00 Test Item Value Reference Range Interpretation Comments Microcyte (test code = 1+ *ABN*(06/15/22 Microcyte) 4:07 AM) [place] 852652-07-27 09:07:00 Test Item Value Reference Range Interpretation Comments Glucose Lvl (test code = Glucose Lvl) 108 70-99 [place] 852652-07-27 09:07:00 Test Item Value Reference Range Interpretation Comments BUN (test code = BUN) 29 - [place] 852652-07-27 09:07:00 Test Item Value Reference Range Interpretation Comments Creatinine Lvl (test code = Creatinine 0.94 0.50-1.40 Lvl) [place] 852652-07-27 09:07:00 Test Item Value Reference Range Interpretation Comments Sodium Lvl (test code = Sodium Lvl) 131 135-145 [place] 852652-07-27 09:07:00 Test Item Value Reference Range Interpretation Comments Potassium Lvl (test code = Potassium 3.2 3.5-5.1 Lvl) [place] 852652-07-27 09:07:00 Test Item Value Reference Range Interpretation Comments Chloride Lvl (test code = Chloride Lvl) 93 95-109 [place] 852652-07-27 09:07:00 Test Item Value Reference Range Interpretation Comments CO2 (test code = CO2) 31 24-32 [place] 852652-07-27 09:07:00 Test Item Value Reference Range Interpretation Comments Calcium Lvl (test code = Calcium Lvl) 8.0 8.5-10.5 [place] 852652-07-27 09:07:00 Test Item Value Reference Range Interpretation Comments Total Protein (test code = Total 5.7 6.4-8.4 Protein) [place] 852652-07-27 09:07:00 Test Item Value Reference Range Interpretation Comments Albumin Lvl (test code = Albumin Lvl) 2.6 3.5-5.0 [place] 852652-07-27 09:07:00 Test Item Value Reference Range Interpretation Comments ALT (test code = ALT) 18 See_Comment [Auto mated message] The system which ge nerated this result transmit lavon reference range : <=65. The reference range was not used to interpr et this result as dionne l/abnormal. [facility] [id number] 09:07:00 Test Item Value Reference Range Interpretation Comments AST (test code = AST) 28 See_Comment [Auto mated message] The system which ge nerated this result transmit lavon reference range : <=37. The reference range was not used to interpr et this result as dionne l/abnormal. [facility] [id number] 09:07:00 Test Item Value Reference Range Interpretation Comments Alk Phos (test code = Alk Phos) 44 39-136 [facility] [id number] 09:07:00 Test Item Value Reference Range Interpretation Comments Bili Total (test code = Bili Total) 1.1 0.2-1.3 [place] 852652-07-27 09:07:00 Test Item Value Reference Range Interpretation Comments AGAP (test code = AGAP) 10.2 10.0-20.0 [place] 852652-07-27 09:07:00 Test Item Value Reference Range Interpretation Comments B/C Ratio (test code = B/C Ratio) 31 1 6-25 [facility] [id number] 09:07:00 Test Item Value Reference Range Interpretation Comments Globulin (test code = Globulin) 3.1 2.7-4.2 [place] 852652-07-27 09:07:00 Test Item Value Reference Range Interpretation Comments A/G Ratio (test code = A/G Ratio) 0.8 1 0.7-1.6 [place] 852652-07-27 09:07:00 Test Item Value Reference Range Interpretation Comments eGFR (test code = eGFR) 59 [place] 778932-07-27 09:07:00 Test Item Value Reference Range Interpretation Comments WBC (test code = WBC) 7.2 3.7-10.4 [facility] CenterFpyxdguOEUPCFUMXB5101-23-66 09:07:00 Test Item Value Reference Range Interpretation Comments RBC (test code = RBC) 3.06 4.20-5.40 [facility] CenterJokkvvhFWJUHOMNTN6752-79-47 09:07:00 Test Item Value Reference Range Interpretation Comments Hgb (test code = Hgb) 7.4 12.0-16.0 [place] 778932-07-27 09:07:00 Test Item Value Reference Range Interpretation Comments Hct (test code = Hct) 22.5 36.0-48.0 [place] 778932-07-27 09:07:00 Test Item Value Reference Range Interpretation Comments MCV (test code = MCV) 73.6 80.0-98.0 [facility] CenterSxhqsjdQKCVIDXCLO6361-37-00 09:07:00 Test Item Value Reference Range Interpretation Comments MCH (test code = MCH) 24.2 pg 27.0-31.0 [facility] CenterReuzydrFHQFKMGQLL7647-76-07 09:07:00 Test Item Value Reference Range Interpretation Comments MCHC (test code = MCHC) 32.9 32.0-36.0 [facility] CenterTcwyhrsXWOBHXNLVQ5321-03-87 09:07:00 Test Item Value Reference Range Interpretation Comments RDW (test code = RDW) 20.8 11.5-14.5 [facility] CenterFcxoeqjHMRBPMRSOK8120-16-54 09:07:00 Test Item Value Reference Range Interpretation Comments Platelet (test code = Platelet) 286 133-450 [facility] CenterCfeiswqVWWLTUYOBY3931-02-13 09:07:00 Test Item Value Reference Range Interpretation Comments MPV (test code = MPV) 7.4 7.4-10.4 [facility] CenterUzanexmHLUYOIDXOT1624-74-67 09:07:00 Test Item Value Reference Range Interpretation Comments Segs (test code = Segs) 73.8 45.0-75.0 [facility] CenterFcrosqtUQYNYPKDJK7719-05-71 09:07:00 Test Item Value Reference Range Interpretation Comments Lymphocytes (test code = Lymphocytes) 17.2 20.0-40.0 [place] 778932-07-27 09:07:00 Test Item Value Reference Range Interpretation Comments Monocytes (test code = Monocytes) 8.8 2.0-12.0 [place] [address]-07-27 09:07:00 Test Item Value Reference Range Interpretation Comments Neutrophils # (test code = Neutrophils 5.3 1.5-8.1 #) [place] 778932-07-27 09:07:00 Test Item Value Reference Range Interpretation Comments Lymphocytes # (test code = Lymphocytes 1.2 1.0-5.5 #) [place] [address]-07-27 09:07:00 Test Item Value Reference Range Interpretation Comments Monocytes # (test code 0.6 See_Comment [Aut omated message] The = Monocytes #) system which generated this result tra nsmitted reference range : <=0.8. The reference r hugo was not used to int erpret this result as normal/abnormal . [place] [address]-07-27 09:07:00 Test Item Value Reference Range Interpretation Comments Microcyte (test code = 1+ *ABN*(06/15/22 Microcyte) 4:07 AM) [place] 852652-07-27 09:07:00 Test Item Value Reference Range Interpretation Comments Glucose Lvl (test code = Glucose Lvl) 108 70-99 [place] 852652-07-27 09:07:00 Test Item Value Reference Range Interpretation Comments BUN (test code = BUN) 29 - [place] 852652-07-27 09:07:00 Test Item Value Reference Range Interpretation Comments Creatinine Lvl (test code = Creatinine 0.94 0.50-1.40 Lvl) [place] 852652-07-27 09:07:00 Test Item Value Reference Range Interpretation Comments Sodium Lvl (test code = Sodium Lvl) 131 135-145 [place] 852652-07-27 09:07:00 Test Item Value Reference Range Interpretation Comments Potassium Lvl (test code = Potassium 3.2 3.5-5.1 Lvl) [place] 852652-07-27 09:07:00 Test Item Value Reference Range Interpretation Comments Chloride Lvl (test code = Chloride Lvl) 93 95-109 [place] 852652-07-27 09:07:00 Test Item Value Reference Range Interpretation Comments CO2 (test code = CO2) 31 24-32 [facility] [id number] 09:07:00 Test Item Value Reference Range Interpretation Comments Calcium Lvl (test code = Calcium Lvl) 8.0 8.5-10.5 [facility] [id number] 09:07:00 Test Item Value Reference Range Interpretation Comments Total Protein (test code = Total 5.7 6.4-8.4 Protein) [facility] [id number] 09:07:00 Test Item Value Reference Range Interpretation Comments Albumin Lvl (test code = Albumin Lvl) 2.6 3.5-5.0 [facility] [employer] [id number] 09:07:00 Test Item Value Reference Range Interpretation Comments ALT (test code = ALT) 18 See_Comment [Auto mated message] The system which ge nerated this result transmit lavon reference range : <=65. The reference range was not used to interpr et this result as dionne l/abnormal. [facility] [employer] [id number] 09:07:00 Test Item Value Reference Range Interpretation Comments AST (test code = AST) 28 See_Comment [Auto mated message] The system which ge nerated this result transmit lavon reference range : <=37. The reference range was not used to interpr et this result as dionne l/abnormal. [facility] [employer] [id number] 09:07:00 Test Item Value Reference Range Interpretation Comments Alk Phos (test code = Alk Phos) 44 39-136 [facility] [employer] [id number] 09:07:00 Test Item Value Reference Range Interpretation Comments Bili Total (test code = Bili Total) 1.1 0.2-1.3 [facility] [employer] [id number] 09:07:00 Test Item Value Reference Range Interpretation Comments AGAP (test code = AGAP) 10.2 10.0-20.0 [facility] [employer] [id number] 09:07:00 Test Item Value Reference Range Interpretation Comments B/C Ratio (test code = B/C Ratio) 31 1 6-25 [facility] [employer] [id number] 09:07:00 Test Item Value Reference Range Interpretation Comments Globulin (test code = Globulin) 3.1 2.7-4.2 [facility] [employer] [id number] 09:07:00 Test Item Value Reference Range Interpretation Comments A/G Ratio (test code = A/G Ratio) 0.8 1 0.7-1.6 [facility]2022-07-27 09:07:00 Test Item Value Reference Range Interpretation Comments eGFR (test code = eGFR) 59 [place] 778932-07-27 09:07:00 Test Item Value Reference Range Interpretation Comments WBC (test code = WBC) 7.2 3.7-10.4 [place] 778932-07-27 09:07:00 Test Item Value Reference Range Interpretation Comments RBC (test code = RBC) 3.06 4.20-5.40 [place] 778932-07-27 09:07:00 Test Item Value Reference Range Interpretation Comments Hgb (test code = Hgb) 7.4 12.0-16.0 [place] 778932-07-27 09:07:00 Test Item Value Reference Range Interpretation Comments Hct (test code = Hct) 22.5 36.0-48.0 [facility] CenterWdxeaygFAGKOHIIPV3073-70-27 09:07:00 Test Item Value Reference Range Interpretation Comments MCV (test code = MCV) 73.6 80.0-98.0 [place] 778932-07-27 09:07:00 Test Item Value Reference Range Interpretation Comments MCH (test code = MCH) 24.2 pg 27.0-31.0 [facility] CenterGwscbomZEOAHGEUIU7279-59-18 09:07:00 Test Item Value Reference Range Interpretation Comments MCHC (test code = MCHC) 32.9 32.0-36.0 [place] 778932-07-27 09:07:00 Test Item Value Reference Range Interpretation Comments RDW (test code = RDW) 20.8 11.5-14.5 [place] 778932-07-27 09:07:00 Test Item Value Reference Range Interpretation Comments Platelet (test code = Platelet) 286 133-450 [facility] CenterOkinhfjUSFVVVWZKT3378-08-54 09:07:00 Test Item Value Reference Range Interpretation Comments MPV (test code = MPV) 7.4 7.4-10.4 [place] 778932-07-27 09:07:00 Test Item Value Reference Range Interpretation Comments Segs (test code = Segs) 73.8 45.0-75.0 [place] 778932-07-27 09:07:00 Test Item Value Reference Range Interpretation Comments Lymphocytes (test code = Lymphocytes) 17.2 20.0-40.0 [place] 778932-07-27 09:07:00 Test Item Value Reference Range Interpretation Comments Monocytes (test code = Monocytes) 8.8 2.0-12.0 [place] 778932-07-27 09:07:00 Test Item Value Reference Range Interpretation Comments Neutrophils # (test code = Neutrophils 5.3 1.5-8.1 #) [place] 778932-07-27 09:07:00 Test Item Value Reference Range Interpretation Comments Lymphocytes # (test code = Lymphocytes 1.2 1.0-5.5 #) [place] 778932-07-27 09:07:00 Test Item Value Reference Range Interpretation Comments Monocytes # (test code 0.6 See_Comment [Aut omated message] The = Monocytes #) system which generated this result tra nsmitted reference range : <=0.8. The reference r hugo was not used to int erpret this result as normal/abnormal . [facility] CenterDxaqibjDGAVKNTHEA0489-85-15 09:07:00 Test Item Value Reference Range Interpretation Comments Microcyte (test code = 1+ *ABN*(06/15/22 Microcyte) 4:07 AM) [place] 852652-07-27 09:07:00 Test Item Value Reference Range Interpretation Comments Glucose Lvl (test code = Glucose Lvl) 108 70-99 [facility]2022-07-27 09:07:00 Test Item Value Reference Range Interpretation Comments BUN (test code = BUN) 29 -22 [place] 852652-07-27 09:07:00 Test Item Value Reference Range Interpretation Comments Creatinine Lvl (test code = Creatinine 0.94 0.50-1.40 Lvl) [place] 852652-07-27 09:07:00 Test Item Value Reference Range Interpretation Comments Sodium Lvl (test code = Sodium Lvl) 131 135-145 [place] 852652-07-27 09:07:00 Test Item Value Reference Range Interpretation Comments Potassium Lvl (test code = Potassium 3.2 3.5-5.1 Lvl) [facility]2022-07-27 09:07:00 Test Item Value Reference Range Interpretation Comments Chloride Lvl (test code = Chloride Lvl) 93 95-109 [place] 852652-07-27 09:07:00 Test Item Value Reference Range Interpretation Comments CO2 (test code = CO2) 31 24-32 [place] 852652-07-27 09:07:00 Test Item Value Reference Range Interpretation Comments Calcium Lvl (test code = Calcium Lvl) 8.0 8.5-10.5 [facility] [id number] 09:07:00 Test Item Value Reference Range Interpretation Comments Total Protein (test code = Total 5.7 6.4-8.4 Protein) [place] 852652-07-27 09:07:00 Test Item Value Reference Range Interpretation Comments Albumin Lvl (test code = Albumin Lvl) 2.6 3.5-5.0 [facility] [id number] 09:07:00 Test Item Value Reference Range Interpretation Comments ALT (test code = ALT) 18 See_Comment [Auto mated message] The system which ge nerated this result transmit lavon reference range : <=65. The reference range was not used to interpr et this result as dionne l/abnormal. [facility] [id number] 09:07:00 Test Item Value Reference Range Interpretation Comments AST (test code = AST) 28 See_Comment [Auto mated message] The system which ge nerated this result transmit lavon reference range : <=37. The reference range was not used to interpr et this result as dionne l/abnormal. [facility] [id number] 09:07:00 Test Item Value Reference Range Interpretation Comments Alk Phos (test code = Alk Phos) 44 39-136 [facility] [id number] 09:07:00 Test Item Value Reference Range Interpretation Comments Bili Total (test code = Bili Total) 1.1 0.2-1.3 [place] 852652-07-27 09:07:00 Test Item Value Reference Range Interpretation Comments AGAP (test code = AGAP) 10.2 10.0-20.0 [facility] [id number] 09:07:00 Test Item Value Reference Range Interpretation Comments B/C Ratio (test code = B/C Ratio) 31 1 6-25 [facility]2022-07-27 09:07:00 Test Item Value Reference Range Interpretation Comments Globulin (test code = Globulin) 3.1 2.7-4.2 [facility]2022-07-27 09:07:00 Test Item Value Reference Range Interpretation Comments A/G Ratio (test code = A/G Ratio) 0.8 1 0.7-1.6 [facility]2022-07-27 09:07:00 Test Item Value Reference Range Interpretation Comments eGFR (test code = eGFR) 59 [facility] CenterGbrihepODMJMFMWEG4796-38-39 09:07:00 Test Item Value Reference Range Interpretation Comments WBC (test code = WBC) 7.2 3.7-10.4 [facility] CenterBahxeyxWKQYLVJUME3498-48-39 09:07:00 Test Item Value Reference Range Interpretation Comments RBC (test code = RBC) 3.06 4.20-5.40 [facility] CenterXzyazbwSYJHSJTDGK8399-64-75 09:07:00 Test Item Value Reference Range Interpretation Comments Hgb (test code = Hgb) 7.4 12.0-16.0 [facility] CenterBfoglpeMMXTBMJTHE5729-03-71 09:07:00 Test Item Value Reference Range Interpretation Comments Hct (test code = Hct) 22.5 36.0-48.0 [facility] CenterEjyfhisEYTHZAESAS9579-60-05 09:07:00 Test Item Value Reference Range Interpretation Comments MCV (test code = MCV) 73.6 80.0-98.0 [facility] CenterFsocdtkVNVVNAWFAQ4747-84-78 09:07:00 Test Item Value Reference Range Interpretation Comments MCH (test code = MCH) 24.2 pg 27.0-31.0 [facility] CenterLlbnkyfQNKIIHEFYF2843-92-31 09:07:00 Test Item Value Reference Range Interpretation Comments MCHC (test code = MCHC) 32.9 32.0-36.0 [facility] CenterFaskfwnMUNIDRAAUS9096-34-88 09:07:00 Test Item Value Reference Range Interpretation Comments RDW (test code = RDW) 20.8 11.5-14.5 [facility] CenterGgtivmkUCKCAYGSJE5961-12-33 09:07:00 Test Item Value Reference Range Interpretation Comments Platelet (test code = Platelet) 286 133-450 [place] 778932-07-27 09:07:00 Test Item Value Reference Range Interpretation Comments MPV (test code = MPV) 7.4 7.4-10.4 [place] 778932-07-27 09:07:00 Test Item Value Reference Range Interpretation Comments Segs (test code = Segs) 73.8 45.0-75.0 [place] [address]-07-27 09:07:00 Test Item Value Reference Range Interpretation Comments Lymphocytes (test code = Lymphocytes) 17.2 20.0-40.0 [place] [address]-07-27 09:07:00 Test Item Value Reference Range Interpretation Comments Monocytes (test code = Monocytes) 8.8 2.0-12.0 [place] 778932-07-27 09:07:00 Test Item Value Reference Range Interpretation Comments Neutrophils # (test code = Neutrophils 5.3 1.5-8.1 #) [place] 778932-07-27 09:07:00 Test Item Value Reference Range Interpretation Comments Lymphocytes # (test code = Lymphocytes 1.2 1.0-5.5 #) [place] 778932-07-27 09:07:00 Test Item Value Reference Range Interpretation Comments Monocytes # (test code 0.6 See_Comment [Aut omated message] The = Monocytes #) system which generated this result tra nsmitted reference range : <=0.8. The reference r hugo was not used to int erpret this result as normal/abnormal . [place] 778932-07-27 09:07:00 Test Item Value Reference Range Interpretation Comments Microcyte (test code = 1+ *ABN*(06/15/22 Microcyte) 4:07 AM) [place] 852652-07-27 09:07:00 Test Item Value Reference Range Interpretation Comments Glucose Lvl (test code = Glucose Lvl) 108 70-99 [place] 852652-07-27 09:07:00 Test Item Value Reference Range Interpretation Comments BUN (test code = BUN) 29 - [place] 852652-07-27 09:07:00 Test Item Value Reference Range Interpretation Comments Creatinine Lvl (test code = Creatinine 0.94 0.50-1.40 Lvl) [place] 852652-07-27 09:07:00 Test Item Value Reference Range Interpretation Comments Sodium Lvl (test code = Sodium Lvl) 131 135-145 [place] 852652-07-27 09:07:00 Test Item Value Reference Range Interpretation Comments Potassium Lvl (test code = Potassium 3.2 3.5-5.1 Lvl) [place] 852652-07-27 09:07:00 Test Item Value Reference Range Interpretation Comments Chloride Lvl (test code = Chloride Lvl) 93 95-109 [place] 852652-07-27 09:07:00 Test Item Value Reference Range Interpretation Comments CO2 (test code = CO2) 31 24-32 [place] 852652-07-27 09:07:00 Test Item Value Reference Range Interpretation Comments Calcium Lvl (test code = Calcium Lvl) 8.0 8.5-10.5 [place] 852652-07-27 09:07:00 Test Item Value Reference Range Interpretation Comments Total Protein (test code = Total 5.7 6.4-8.4 Protein) [place] [address]-07-27 09:07:00 Test Item Value Reference Range Interpretation Comments Albumin Lvl (test code = Albumin Lvl) 2.6 3.5-5.0 [place] 852652-07-27 09:07:00 Test Item Value Reference Range Interpretation Comments ALT (test code = ALT) 18 See_Comment [Auto mated message] The system which ge nerated this result transmit lavon reference range : <=65. The reference range was not used to interpr et this result as dionne l/abnormal. [place] 852652-07-27 09:07:00 Test Item Value Reference Range Interpretation Comments AST (test code = AST) 28 See_Comment [Auto mated message] The system which ge nerated this result transmit lavon reference range : <=37. The reference range was not used to interpr et this result as dionne l/abnormal. [place] 852652-07-27 09:07:00 Test Item Value Reference Range Interpretation Comments Alk Phos (test code = Alk Phos) 44 39-136 [place] 852652-07-27 09:07:00 Test Item Value Reference Range Interpretation Comments Bili Total (test code = Bili Total) 1.1 0.2-1.3 [place] 852652-07-27 09:07:00 Test Item Value Reference Range Interpretation Comments AGAP (test code = AGAP) 10.2 10.0-20.0 [place] 852652-07-27 09:07:00 Test Item Value Reference Range Interpretation Comments B/C Ratio (test code = B/C Ratio) 31 1 6-25 [place] 852652-07-27 09:07:00 Test Item Value Reference Range Interpretation Comments Globulin (test code = Globulin) 3.1 2.7-4.2 [place] 852652-07-27 09:07:00 Test Item Value Reference Range Interpretation Comments A/G Ratio (test code = A/G Ratio) 0.8 1 0.7-1.6 [place] 852652-07-27 09:07:00 Test Item Value Reference Range Interpretation Comments eGFR (test code = eGFR) 59 [facility] CenterGocuyobAAYLEURJZQ0097-54-42 09:07:00 Test Item Value Reference Range Interpretation Comments WBC (test code = WBC) 7.2 3.7-10.4 [place] 778932-07-27 09:07:00 Test Item Value Reference Range Interpretation Comments RBC (test code = RBC) 3.06 4.20-5.40 [place] 778932-07-27 09:07:00 Test Item Value Reference Range Interpretation Comments Hgb (test code = Hgb) 7.4 12.0-16.0 [place] 778932-07-27 09:07:00 Test Item Value Reference Range Interpretation Comments Hct (test code = Hct) 22.5 36.0-48.0 [place] 778932-07-27 09:07:00 Test Item Value Reference Range Interpretation Comments MCV (test code = MCV) 73.6 80.0-98.0 [place] 778932-07-27 09:07:00 Test Item Value Reference Range Interpretation Comments MCH (test code = MCH) 24.2 pg 27.0-31.0 [place] 778932-07-27 09:07:00 Test Item Value Reference Range Interpretation Comments MCHC (test code = MCHC) 32.9 32.0-36.0 [place] 778932-07-27 09:07:00 Test Item Value Reference Range Interpretation Comments RDW (test code = RDW) 20.8 11.5-14.5 [facility] CenterNreeqesSJWNPPOYLI8270-42-55 09:07:00 Test Item Value Reference Range Interpretation Comments Platelet (test code = Platelet) 286 133-450 [facility] CenterYqbmnciEMMICSRWMJ3647-01-84 09:07:00 Test Item Value Reference Range Interpretation Comments MPV (test code = MPV) 7.4 7.4-10.4 [facility] CenterMfnrfqlIFDWRWDRTE6821-98-66 09:07:00 Test Item Value Reference Range Interpretation Comments Segs (test code = Segs) 73.8 45.0-75.0 [place] 778932-07-27 09:07:00 Test Item Value Reference Range Interpretation Comments Lymphocytes (test code = Lymphocytes) 17.2 20.0-40.0 [facility] CenterIuwzyraSPGDTPKJMY8217-10-44 09:07:00 Test Item Value Reference Range Interpretation Comments Monocytes (test code = Monocytes) 8.8 2.0-12.0 [facility] CenterDujxvthJSSVXSTSYX5236-47-85 09:07:00 Test Item Value Reference Range Interpretation Comments Neutrophils # (test code = Neutrophils 5.3 1.5-8.1 #) [facility] CenterFqeuwdyVRJIJLLEDT0229-48-41 09:07:00 Test Item Value Reference Range Interpretation Comments Lymphocytes # (test code = Lymphocytes 1.2 1.0-5.5 #) [facility] CenterIveiqelQLPJTZXVRH8513-69-35 09:07:00 Test Item Value Reference Range Interpretation Comments Monocytes # (test code 0.6 See_Comment [Aut omated message] The = Monocytes #) system which generated this result tra nsmitted reference range : <=0.8. The reference r hugo was not used to int erpret this result as normal/abnormal . [facility]7075[facility]:07:00 Test Item Value Reference Range Interpretation Comments Microcyte (test code = 1+ *ABN*(06/15/22 Microcyte) 4:07 AM) [facility]2022-07-27 09:07:00 Test Item Value Reference Range Interpretation Comments Glucose Lvl (test code = Glucose Lvl) 108 70-99 [facility]2022-07-27 09:07:00 Test Item Value Reference Range Interpretation Comments BUN (test code = BUN) 29 7-22 [place] 852652-07-27 09:07:00 Test Item Value Reference Range Interpretation Comments Creatinine Lvl (test code = Creatinine 0.94 0.50-1.40 Lvl) [place] 852652-07-27 09:07:00 Test Item Value Reference Range Interpretation Comments Sodium Lvl (test code = Sodium Lvl) 131 135-145 [place] [address]-07-27 09:07:00 Test Item Value Reference Range Interpretation Comments Potassium Lvl (test code = Potassium 3.2 3.5-5.1 Lvl) [place] [address]-07-27 09:07:00 Test Item Value Reference Range Interpretation Comments Chloride Lvl (test code = Chloride Lvl) 93 95-109 [place] 852652-07-27 09:07:00 Test Item Value Reference Range Interpretation Comments CO2 (test code = CO2) 31 24-32 [place] 852652-07-27 09:07:00 Test Item Value Reference Range Interpretation Comments Calcium Lvl (test code = Calcium Lvl) 8.0 8.5-10.5 [place] 852652-07-27 09:07:00 Test Item Value Reference Range Interpretation Comments Total Protein (test code = Total 5.7 6.4-8.4 Protein) [place] 852652-07-27 09:07:00 Test Item Value Reference Range Interpretation Comments Albumin Lvl (test code = Albumin Lvl) 2.6 3.5-5.0 [place] [address]-07-27 09:07:00 Test Item Value Reference Range Interpretation Comments ALT (test code = ALT) 18 See_Comment [Auto mated message] The system which ge nerated this result transmit lavon reference range : <=65. The reference range was not used to interpr et this result as dionne l/abnormal. [place] [address]-07-27 09:07:00 Test Item Value Reference Range Interpretation Comments AST (test code = AST) 28 See_Comment [Auto mated message] The system which ge nerated this result transmit lavon reference range : <=37. The reference range was not used to interpr et this result as dionne l/abnormal. [place] [address]-07-27 09:07:00 Test Item Value Reference Range Interpretation Comments Alk Phos (test code = Alk Phos) 44 39-136 [place] 852652-07-27 09:07:00 Test Item Value Reference Range Interpretation Comments Bili Total (test code = Bili Total) 1.1 0.2-1.3 [place] 852652-07-27 09:07:00 Test Item Value Reference Range Interpretation Comments AGAP (test code = AGAP) 10.2 10.0-20.0 [place] 852652-07-27 09:07:00 Test Item Value Reference Range Interpretation Comments B/C Ratio (test code = B/C Ratio) 31 1 6-25 [place] 852652-07-27 09:07:00 Test Item Value Reference Range Interpretation Comments Globulin (test code = Globulin) 3.1 2.7-4.2 [place] 852652-07-27 09:07:00 Test Item Value Reference Range Interpretation Comments A/G Ratio (test code = A/G Ratio) 0.8 1 0.7-1.6 [place] 852652-07-27 09:07:00 Test Item Value Reference Range Interpretation Comments eGFR (test code = eGFR) 59 [place] 778932-07-27 09:07:00 Test Item Value Reference Range Interpretation Comments WBC (test code = WBC) 7.2 3.7-10.4 [place] 778932-07-27 09:07:00 Test Item Value Reference Range Interpretation Comments RBC (test code = RBC) 3.06 4.20-5.40 [place] 778932-07-27 09:07:00 Test Item Value Reference Range Interpretation Comments Hgb (test code = Hgb) 7.4 12.0-16.0 [place] [address]-07-27 09:07:00 Test Item Value Reference Range Interpretation Comments Hct (test code = Hct) 22.5 36.0-48.0 [place] [address]-07-27 09:07:00 Test Item Value Reference Range Interpretation Comments MCV (test code = MCV) 73.6 80.0-98.0 [place] [address]-07-27 09:07:00 Test Item Value Reference Range Interpretation Comments MCH (test code = MCH) 24.2 pg 27.0-31.0 [place] 778932-07-27 09:07:00 Test Item Value Reference Range Interpretation Comments MCHC (test code = MCHC) 32.9 32.0-36.0 [place] 778932-07-27 09:07:00 Test Item Value Reference Range Interpretation Comments RDW (test code = RDW) 20.8 11.5-14.5 [place] 778932-07-27 09:07:00 Test Item Value Reference Range Interpretation Comments Platelet (test code = Platelet) 286 133-450 [facility] CenterPzsbhrvFSLUVJGWYJ8878-93-30 09:07:00 Test Item Value Reference Range Interpretation Comments MPV (test code = MPV) 7.4 7.4-10.4 [place] 778932-07-27 09:07:00 Test Item Value Reference Range Interpretation Comments Segs (test code = Segs) 73.8 45.0-75.0 [place] 778932-07-27 09:07:00 Test Item Value Reference Range Interpretation Comments Lymphocytes (test code = Lymphocytes) 17.2 20.0-40.0 [place] 778932-07-27 09:07:00 Test Item Value Reference Range Interpretation Comments Monocytes (test code = Monocytes) 8.8 2.0-12.0 [facility] CenterRvdvoywILCHDCNUWS4807-75-92 09:07:00 Test Item Value Reference Range Interpretation Comments Neutrophils # (test code = Neutrophils 5.3 1.5-8.1 #) [facility] CenterAyuwyfzRONYXQFIYS4198-13-46 09:07:00 Test Item Value Reference Range Interpretation Comments Lymphocytes # (test code = Lymphocytes 1.2 1.0-5.5 #) [place] 778932-07-27 09:07:00 Test Item Value Reference Range Interpretation Comments Monocytes # (test code 0.6 See_Comment [Aut omated message] The = Monocytes #) system which generated this result tra nsmitted reference range : <=0.8. The reference r hugo was not used to int erpret this result as normal/abnormal . [place] 778932-07-27 09:07:00 Test Item Value Reference Range Interpretation Comments Microcyte (test code = 1+ *ABN*(06/15/22 Microcyte) 4:07 AM) [place] 852652-07-27 09:07:00 Test Item Value Reference Range Interpretation Comments Glucose Lvl (test code = Glucose Lvl) 108 70-99 [place] 852652-07-27 09:07:00 Test Item Value Reference Range Interpretation Comments BUN (test code = BUN) 29 - [place] 852652-07-27 09:07:00 Test Item Value Reference Range Interpretation Comments Creatinine Lvl (test code = Creatinine 0.94 0.50-1.40 Lvl) [place] 852652-07-27 09:07:00 Test Item Value Reference Range Interpretation Comments Sodium Lvl (test code = Sodium Lvl) 131 135-145 [place] 852652-07-27 09:07:00 Test Item Value Reference Range Interpretation Comments Potassium Lvl (test code = Potassium 3.2 3.5-5.1 Lvl) [place] 852652-07-27 09:07:00 Test Item Value Reference Range Interpretation Comments Chloride Lvl (test code = Chloride Lvl) 93 95-109 [place] 852652-07-27 09:07:00 Test Item Value Reference Range Interpretation Comments CO2 (test code = CO2) 31 24-32 [place] 852652-07-27 09:07:00 Test Item Value Reference Range Interpretation Comments Calcium Lvl (test code = Calcium Lvl) 8.0 8.5-10.5 [place] 852652-07-27 09:07:00 Test Item Value Reference Range Interpretation Comments Total Protein (test code = Total 5.7 6.4-8.4 Protein) [place] 852652-07-27 09:07:00 Test Item Value Reference Range Interpretation Comments Albumin Lvl (test code = Albumin Lvl) 2.6 3.5-5.0 [place] 852652-07-27 09:07:00 Test Item Value Reference Range Interpretation Comments ALT (test code = ALT) 18 See_Comment [Auto mated message] The system which ge nerated this result transmit lavon reference range : <=65. The reference range was not used to interpr et this result as dionne l/abnormal. [place] 852652-07-27 09:07:00 Test Item Value Reference Range Interpretation Comments AST (test code = AST) 28 See_Comment [Auto mated message] The system which ge nerated this result transmit lavon reference range : <=37. The reference range was not used to interpr et this result as dionne l/abnormal. [facility] [employer] [id number] 09:07:00 Test Item Value Reference Range Interpretation Comments Alk Phos (test code = Alk Phos) 44 39-136 [facility] [id number] 09:07:00 Test Item Value Reference Range Interpretation Comments Bili Total (test code = Bili Total) 1.1 0.2-1.3 [facility] [id number] 09:07:00 Test Item Value Reference Range Interpretation Comments AGAP (test code = AGAP) 10.2 10.0-20.0 [facility] [id number] 09:07:00 Test Item Value Reference Range Interpretation Comments B/C Ratio (test code = B/C Ratio) 31 1 6-25 [facility] [id number] 09:07:00 Test Item Value Reference Range Interpretation Comments Globulin (test code = Globulin) 3.1 2.7-4.2 [facility] [id number] 09:07:00 Test Item Value Reference Range Interpretation Comments A/G Ratio (test code = A/G Ratio) 0.8 1 0.7-1.6 [facility] [id number] 09:07:00 Test Item Value Reference Range Interpretation Comments eGFR (test code = eGFR) 59 [facility]villeGhtweogHXKAQLNKLI2432-20-78 09:07:00 Test Item Value Reference Range Interpretation Comments WBC (test code = WBC) 7.2 3.7-10.4 [place] 778932-07-27 09:07:00 Test Item Value Reference Range Interpretation Comments RBC (test code = RBC) 3.06 4.20-5.40 [place] 778932-07-27 09:07:00 Test Item Value Reference Range Interpretation Comments Hgb (test code = Hgb) 7.4 12.0-16.0 [facility] GreenvilleYzlplatKZQIFDWHOE8483-34-91 09:07:00 Test Item Value Reference Range Interpretation Comments Hct (test code = Hct) 22.5 36.0-48.0 [facility] CenterDzkscxeHCVMHNCRDY9556-46-52 09:07:00 Test Item Value Reference Range Interpretation Comments MCV (test code = MCV) 73.6 80.0-98.0 [facility] CenterHpeafxpLPYGGACOPS6305-10-44 09:07:00 Test Item Value Reference Range Interpretation Comments MCH (test code = MCH) 24.2 pg 27.0-31.0 [facility] CenterKkstybhKRFXWGOAIH6428-25-34 09:07:00 Test Item Value Reference Range Interpretation Comments MCHC (test code = MCHC) 32.9 32.0-36.0 [facility] CenterDiskuazTPMYUTYVYQ3415-63-25 09:07:00 Test Item Value Reference Range Interpretation Comments RDW (test code = RDW) 20.8 11.5-14.5 [facility] CenterXfsccwsFZKHRCOKAN8921-75-92 09:07:00 Test Item Value Reference Range Interpretation Comments Platelet (test code = Platelet) 286 133-450 [facility] CenterStauvoeQHCCJTZMON3736-54-45 09:07:00 Test Item Value Reference Range Interpretation Comments MPV (test code = MPV) 7.4 7.4-10.4 [facility] CenterRqfifmvQKHLSQBARH5774-57-50 09:07:00 Test Item Value Reference Range Interpretation Comments Segs (test code = Segs) 73.8 45.0-75.0 [facility] CenterBedjecxVRHYECTGLI1650-00-98 09:07:00 Test Item Value Reference Range Interpretation Comments Lymphocytes (test code = Lymphocytes) 17.2 20.0-40.0 [facility] CenterKecjssrAMFTDZGMHZ3168-63-46 09:07:00 Test Item Value Reference Range Interpretation Comments Monocytes (test code = Monocytes) 8.8 2.0-12.0 [place] 778932-07-27 09:07:00 Test Item Value Reference Range Interpretation Comments Neutrophils # (test code = Neutrophils 5.3 1.5-8.1 #) [facility] CenterGzahaszMKEXYSLYIS2090-99-21 09:07:00 Test Item Value Reference Range Interpretation Comments Lymphocytes # (test code = Lymphocytes 1.2 1.0-5.5 #) [facility] CenterVrcjuhhEXXSVKGXZD9639-39-23 09:07:00 Test Item Value Reference Range Interpretation Comments Monocytes # (test code 0.6 See_Comment [Aut omated message] The = Monocytes #) system which generated this result tra nsmitted reference range : <=0.8. The reference r hugo was not used to int erpret this result as normal/abnormal . [facility] CenterIetcvcyLKCEKQIUZX2109-79-20 09:07:00 Test Item Value Reference Range Interpretation Comments Microcyte (test code = 1+ *ABN*(06/15/22 Microcyte) 4:07 AM) [place] 852652-07-27 09:07:00 Test Item Value Reference Range Interpretation Comments Glucose Lvl (test code = Glucose Lvl) 108 70-99 [place] 852652-07-27 09:07:00 Test Item Value Reference Range Interpretation Comments BUN (test code = BUN) 29 - [place] 852652-07-27 09:07:00 Test Item Value Reference Range Interpretation Comments Creatinine Lvl (test code = Creatinine 0.94 0.50-1.40 Lvl) [place] 852652-07-27 09:07:00 Test Item Value Reference Range Interpretation Comments Sodium Lvl (test code = Sodium Lvl) 131 135-145 [place] 852652-07-27 09:07:00 Test Item Value Reference Range Interpretation Comments Potassium Lvl (test code = Potassium 3.2 3.5-5.1 Lvl) [place] 852652-07-27 09:07:00 Test Item Value Reference Range Interpretation Comments Chloride Lvl (test code = Chloride Lvl) 93 95-109 [place] 852652-07-27 09:07:00 Test Item Value Reference Range Interpretation Comments CO2 (test code = CO2) 31 24-32 [place] 852652-07-27 09:07:00 Test Item Value Reference Range Interpretation Comments Calcium Lvl (test code = Calcium Lvl) 8.0 8.5-10.5 [place] 852652-07-27 09:07:00 Test Item Value Reference Range Interpretation Comments Total Protein (test code = Total 5.7 6.4-8.4 Protein) [place] 852652-07-27 09:07:00 Test Item Value Reference Range Interpretation Comments Albumin Lvl (test code = Albumin Lvl) 2.6 3.5-5.0 [place] 852652-07-27 09:07:00 Test Item Value Reference Range Interpretation Comments ALT (test code = ALT) 18 See_Comment [Auto mated message] The system which ge nerated this result transmit lavon reference range : <=65. The reference range was not used to interpr et this result as dionne l/abnormal. [facility] [id number] 09:07:00 Test Item Value Reference Range Interpretation Comments AST (test code = AST) 28 See_Comment [Auto mated message] The system which ge nerated this result transmit lavon reference range : <=37. The reference range was not used to interpr et this result as dionne l/abnormal. [facility] [id number] 09:07:00 Test Item Value Reference Range Interpretation Comments Alk Phos (test code = Alk Phos) 44 39-136 [facility] [id number] 09:07:00 Test Item Value Reference Range Interpretation Comments Bili Total (test code = Bili Total) 1.1 0.2-1.3 [facility] [id number] 09:07:00 Test Item Value Reference Range Interpretation Comments AGAP (test code = AGAP) 10.2 10.0-20.0 [facility] [id number] 09:07:00 Test Item Value Reference Range Interpretation Comments B/C Ratio (test code = B/C Ratio) 31 1 6-25 [facility] [id number] 09:07:00 Test Item Value Reference Range Interpretation Comments Globulin (test code = Globulin) 3.1 2.7-4.2 [facility] [id number] 09:07:00 Test Item Value Reference Range Interpretation Comments A/G Ratio (test code = A/G Ratio) 0.8 1 0.7-1.6 [facility] [id number] 09:07:00 Test Item Value Reference Range Interpretation Comments eGFR (test code = eGFR) 59 [facility] GreenvilleOmpnugvAMKDCMLISU0319-74-98 09:07:00 Test Item Value Reference Range Interpretation Comments WBC (test code = WBC) 7.2 3.7-10.4 [facility] GreenvilleElzueouJEBHXZAFHU9052-38-60 09:07:00 Test Item Value Reference Range Interpretation Comments RBC (test code = RBC) 3.06 4.20-5.40 [place] 778932-07-27 09:07:00 Test Item Value Reference Range Interpretation Comments Hgb (test code = Hgb) 7.4 12.0-16.0 [place] 778932-07-27 09:07:00 Test Item Value Reference Range Interpretation Comments Hct (test code = Hct) 22.5 36.0-48.0 [place] 778932-07-27 09:07:00 Test Item Value Reference Range Interpretation Comments MCV (test code = MCV) 73.6 80.0-98.0 [place] 778932-07-27 09:07:00 Test Item Value Reference Range Interpretation Comments MCH (test code = MCH) 24.2 pg 27.0-31.0 [facility] CenterAflwwwxRBZVIJUHET8868-19-31 09:07:00 Test Item Value Reference Range Interpretation Comments MCHC (test code = MCHC) 32.9 32.0-36.0 [place] 778932-07-27 09:07:00 Test Item Value Reference Range Interpretation Comments RDW (test code = RDW) 20.8 11.5-14.5 [place] 778932-07-27 09:07:00 Test Item Value Reference Range Interpretation Comments Platelet (test code = Platelet) 286 133-450 [facility] CenterMliwagmFRWPLPGMEL7957-41-28 09:07:00 Test Item Value Reference Range Interpretation Comments MPV (test code = MPV) 7.4 7.4-10.4 [place] 778932-07-27 09:07:00 Test Item Value Reference Range Interpretation Comments Segs (test code = Segs) 73.8 45.0-75.0 [place] 778932-07-27 09:07:00 Test Item Value Reference Range Interpretation Comments Lymphocytes (test code = Lymphocytes) 17.2 20.0-40.0 [place] 778932-07-27 09:07:00 Test Item Value Reference Range Interpretation Comments Monocytes (test code = Monocytes) 8.8 2.0-12.0 [place] 778932-07-27 09:07:00 Test Item Value Reference Range Interpretation Comments Neutrophils # (test code = Neutrophils 5.3 1.5-8.1 #) [facility] CenterFogshztVOBUNAZSCF8822-03-15 09:07:00 Test Item Value Reference Range Interpretation Comments Lymphocytes # (test code = Lymphocytes 1.2 1.0-5.5 #) [place] 778932-07-27 09:07:00 Test Item Value Reference Range Interpretation Comments Monocytes # (test code 0.6 See_Comment [Aut omated message] The = Monocytes #) system which generated this result tra nsmitted reference range : <=0.8. The reference r hugo was not used to int erpret this result as normal/abnormal . [place] 778932-07-27 09:07:00 Test Item Value Reference Range Interpretation Comments Microcyte (test code = 1+ *ABN*(06/15/22 Microcyte) 4:07 AM) [place] 852652-07-27 09:07:00 Test Item Value Reference Range Interpretation Comments Glucose Lvl (test code = Glucose Lvl) 108 70-99 [place] 852652-07-27 09:07:00 Test Item Value Reference Range Interpretation Comments BUN (test code = BUN) 29 -22 [place] 852652-07-27 09:07:00 Test Item Value Reference Range Interpretation Comments Creatinine Lvl (test code = Creatinine 0.94 0.50-1.40 Lvl) [place] 852652-07-27 09:07:00 Test Item Value Reference Range Interpretation Comments Sodium Lvl (test code = Sodium Lvl) 131 135-145 [place] 852652-07-27 09:07:00 Test Item Value Reference Range Interpretation Comments Potassium Lvl (test code = Potassium 3.2 3.5-5.1 Lvl) [place] 852652-07-27 09:07:00 Test Item Value Reference Range Interpretation Comments Chloride Lvl (test code = Chloride Lvl) 93 95-109 [place] 852652-07-27 09:07:00 Test Item Value Reference Range Interpretation Comments CO2 (test code = CO2) 31 24-32 [place] 852652-07-27 09:07:00 Test Item Value Reference Range Interpretation Comments Calcium Lvl (test code = Calcium Lvl) 8.0 8.5-10.5 [place] 852652-07-27 09:07:00 Test Item Value Reference Range Interpretation Comments Total Protein (test code = Total 5.7 6.4-8.4 Protein) [place] 852652-07-27 09:07:00 Test Item Value Reference Range Interpretation Comments Albumin Lvl (test code = Albumin Lvl) 2.6 3.5-5.0 [place] 852652-07-27 09:07:00 Test Item Value Reference Range Interpretation Comments ALT (test code = ALT) 18 See_Comment [Auto mated message] The system which ge nerated this result transmit lavon reference range : <=65. The reference range was not used to interpr et this result as dionne l/abnormal. [place] 852652-07-27 09:07:00 Test Item Value Reference Range Interpretation Comments AST (test code = AST) 28 See_Comment [Auto mated message] The system which ge nerated this result transmit lavon reference range : <=37. The reference range was not used to interpr et this result as dionne l/abnormal. [place] 852652-07-27 09:07:00 Test Item Value Reference Range Interpretation Comments Alk Phos (test code = Alk Phos) 44 39-136 [place] 852652-07-27 09:07:00 Test Item Value Reference Range Interpretation Comments Bili Total (test code = Bili Total) 1.1 0.2-1.3 [place] 852652-07-27 09:07:00 Test Item Value Reference Range Interpretation Comments AGAP (test code = AGAP) 10.2 10.0-20.0 [place] 852652-07-27 09:07:00 Test Item Value Reference Range Interpretation Comments B/C Ratio (test code = B/C Ratio) 31 1 6-25 [place] 852652-07-27 09:07:00 Test Item Value Reference Range Interpretation Comments Globulin (test code = Globulin) 3.1 2.7-4.2 [place] 852652-07-27 09:07:00 Test Item Value Reference Range Interpretation Comments A/G Ratio (test code = A/G Ratio) 0.8 1 0.7-1.6 [place] 852652-07-27 09:07:00 Test Item Value Reference Range Interpretation Comments eGFR (test code = eGFR) 59 [facility] CenterGgxhfnwDRWRZYQEBT8432-25-55 09:07:00 Test Item Value Reference Range Interpretation Comments WBC (test code = WBC) 7.2 3.7-10.4 [facility] CenterIzbhqxhDBUIUDPMKB1666-57-97 09:07:00 Test Item Value Reference Range Interpretation Comments RBC (test code = RBC) 3.06 4.20-5.40 [facility] CenterIzbcpvoQKYYLWWOCJ8145-07-73 09:07:00 Test Item Value Reference Range Interpretation Comments Hgb (test code = Hgb) 7.4 12.0-16.0 [facility] CenterNbekdksVFQZIAMJTX8306-78-05 09:07:00 Test Item Value Reference Range Interpretation Comments Hct (test code = Hct) 22.5 36.0-48.0 [facility] CenterHwnuclpVOBEGEWAEJ7986-21-54 09:07:00 Test Item Value Reference Range Interpretation Comments MCV (test code = MCV) 73.6 80.0-98.0 [facility] CenterMgdirgvBURYLPYDEF1609-65-97 09:07:00 Test Item Value Reference Range Interpretation Comments MCH (test code = MCH) 24.2 pg 27.0-31.0 [facility] CenterKexywlhBBDTRBRPRI6428-85-80 09:07:00 Test Item Value Reference Range Interpretation Comments MCHC (test code = MCHC) 32.9 32.0-36.0 [facility] CenterTlzieyrUXPFYBVNCJ4587-02-78 09:07:00 Test Item Value Reference Range Interpretation Comments RDW (test code = RDW) 20.8 11.5-14.5 [facility] CenterJzjzomjJBZGVGIXTU6233-41-79 09:07:00 Test Item Value Reference Range Interpretation Comments Platelet (test code = Platelet) 286 133-450 [facility] CenterXdpzyaxWUIGJGZSTI9361-78-82 09:07:00 Test Item Value Reference Range Interpretation Comments MPV (test code = MPV) 7.4 7.4-10.4 [facility] CenterOovauvmPUEISSDUWA5406-34-51 09:07:00 Test Item Value Reference Range Interpretation Comments Segs (test code = Segs) 73.8 45.0-75.0 [facility] CenterKqqvmhqHTFAKWYDCO7864-05-49 09:07:00 Test Item Value Reference Range Interpretation Comments Lymphocytes (test code = Lymphocytes) 17.2 20.0-40.0 [facility] CenterEqijtkyAZGGIFYNWU6055-95-87 09:07:00 Test Item Value Reference Range Interpretation Comments Monocytes (test code = Monocytes) 8.8 2.0-12.0 [place] 778932-07-27 09:07:00 Test Item Value Reference Range Interpretation Comments Neutrophils # (test code = Neutrophils 5.3 1.5-8.1 #) [place] 778932-07-27 09:07:00 Test Item Value Reference Range Interpretation Comments Lymphocytes # (test code = Lymphocytes 1.2 1.0-5.5 #) [place] 778932-07-27 09:07:00 Test Item Value Reference Range Interpretation Comments Monocytes # (test code 0.6 See_Comment [Aut omated message] The = Monocytes #) system which generated this result tra nsmitted reference range : <=0.8. The reference r hugo was not used to int erpret this result as normal/abnormal . [place] 778932-07-27 09:07:00 Test Item Value Reference Range Interpretation Comments Microcyte (test code = 1+ *ABN*(06/15/22 Microcyte) 4:07 AM) [place] 852652-07-27 09:07:00 Test Item Value Reference Range Interpretation Comments Glucose Lvl (test code = Glucose Lvl) 108 70-99 [place] 852652-07-27 09:07:00 Test Item Value Reference Range Interpretation Comments BUN (test code = BUN) 29 - [place] 852652-07-27 09:07:00 Test Item Value Reference Range Interpretation Comments Creatinine Lvl (test code = Creatinine 0.94 0.50-1.40 Lvl) [place] 852652-07-27 09:07:00 Test Item Value Reference Range Interpretation Comments Sodium Lvl (test code = Sodium Lvl) 131 135-145 [place] 852652-07-27 09:07:00 Test Item Value Reference Range Interpretation Comments Potassium Lvl (test code = Potassium 3.2 3.5-5.1 Lvl) [place] 852652-07-27 09:07:00 Test Item Value Reference Range Interpretation Comments Chloride Lvl (test code = Chloride Lvl) 93 95-109 [place] 852652-07-27 09:07:00 Test Item Value Reference Range Interpretation Comments CO2 (test code = CO2) 31 24-32 [place] 852652-07-27 09:07:00 Test Item Value Reference Range Interpretation Comments Calcium Lvl (test code = Calcium Lvl) 8.0 8.5-10.5 [facility] [id number] 09:07:00 Test Item Value Reference Range Interpretation Comments Total Protein (test code = Total 5.7 6.4-8.4 Protein) [facility] [id number] 09:07:00 Test Item Value Reference Range Interpretation Comments Albumin Lvl (test code = Albumin Lvl) 2.6 3.5-5.0 [facility] [id number] 09:07:00 Test Item Value Reference Range Interpretation Comments ALT (test code = ALT) 18 See_Comment [Auto mated message] The system which ge nerated this result transmit lavon reference range : <=65. The reference range was not used to interpr et this result as dionne l/abnormal. [facility] [id number] 09:07:00 Test Item Value Reference Range Interpretation Comments AST (test code = AST) 28 See_Comment [Auto mated message] The system which ge nerated this result transmit lavon reference range : <=37. The reference range was not used to interpr et this result as dionne l/abnormal. [facility] [employer] [id number] 09:07:00 Test Item Value Reference Range Interpretation Comments Alk Phos (test code = Alk Phos) 44 39-136 [facility] [employer] [id number] 09:07:00 Test Item Value Reference Range Interpretation Comments Bili Total (test code = Bili Total) 1.1 0.2-1.3 [facility] [employer] [id number] 09:07:00 Test Item Value Reference Range Interpretation Comments AGAP (test code = AGAP) 10.2 10.0-20.0 [facility] [employer] [id number] 09:07:00 Test Item Value Reference Range Interpretation Comments B/C Ratio (test code = B/C Ratio) 31 1 6-25 [facility] [employer] [id number] 09:07:00 Test Item Value Reference Range Interpretation Comments Globulin (test code = Globulin) 3.1 2.7-4.2 [facility] [employer] [id number] 09:07:00 Test Item Value Reference Range Interpretation Comments A/G Ratio (test code = A/G Ratio) 0.8 1 0.7-1.6 [facility]2022-07-27 09:07:00 Test Item Value Reference Range Interpretation Comments eGFR (test code = eGFR) 59 [place] 778932-07-27 09:07:00 Test Item Value Reference Range Interpretation Comments WBC (test code = WBC) 7.2 3.7-10.4 [place] 778932-07-27 09:07:00 Test Item Value Reference Range Interpretation Comments RBC (test code = RBC) 3.06 4.20-5.40 [place] 778932-07-27 09:07:00 Test Item Value Reference Range Interpretation Comments Hgb (test code = Hgb) 7.4 12.0-16.0 [place] [address]-07-27 09:07:00 Test Item Value Reference Range Interpretation Comments Hct (test code = Hct) 22.5 36.0-48.0 [place] 778932-07-27 09:07:00 Test Item Value Reference Range Interpretation Comments MCV (test code = MCV) 73.6 80.0-98.0 [place] [address]-07-27 09:07:00 Test Item Value Reference Range Interpretation Comments MCH (test code = MCH) 24.2 pg 27.0-31.0 [facility]OLUDKHVGBE6167-49-14 09:07:00 Test Item Value Reference Range Interpretation Comments MCHC (test code = MCHC) 32.9 32.0-36.0 [place] 778932-07-27 09:07:00 Test Item Value Reference Range Interpretation Comments RDW (test code = RDW) 20.8 11.5-14.5 [place] [address]-07-27 09:07:00 Test Item Value Reference Range Interpretation Comments Platelet (test code = Platelet) 286 133-450 [facility] CenterAmhcwpfYQRAFRRNTK9362-66-44 09:07:00 Test Item Value Reference Range Interpretation Comments MPV (test code = MPV) 7.4 7.4-10.4 [place] 778932-07-27 09:07:00 Test Item Value Reference Range Interpretation Comments Segs (test code = Segs) 73.8 45.0-75.0 [place] 778932-07-27 09:07:00 Test Item Value Reference Range Interpretation Comments Lymphocytes (test code = Lymphocytes) 17.2 20.0-40.0 [place] 778932-07-27 09:07:00 Test Item Value Reference Range Interpretation Comments Monocytes (test code = Monocytes) 8.8 2.0-12.0 [place] 778932-07-27 09:07:00 Test Item Value Reference Range Interpretation Comments Neutrophils # (test code = Neutrophils 5.3 1.5-8.1 #) [place] 778932-07-27 09:07:00 Test Item Value Reference Range Interpretation Comments Lymphocytes # (test code = Lymphocytes 1.2 1.0-5.5 #) [place] [address]-07-27 09:07:00 Test Item Value Reference Range Interpretation Comments Monocytes # (test code 0.6 See_Comment [Aut omated message] The = Monocytes #) system which generated this result tra nsmitted reference range : <=0.8. The reference r hugo was not used to int erpret this result as normal/abnormal . [place] 778932-07-27 09:07:00 Test Item Value Reference Range Interpretation Comments Microcyte (test code = 1+ *ABN*(06/15/22 Microcyte) 4:07 AM) [place] 852652-07-27 09:07:00 Test Item Value Reference Range Interpretation Comments Glucose Lvl (test code = Glucose Lvl) 108 70-99 [facility]2022-07-27 09:07:00 Test Item Value Reference Range Interpretation Comments BUN (test code = BUN) 29 - [place] 852652-07-27 09:07:00 Test Item Value Reference Range Interpretation Comments Creatinine Lvl (test code = Creatinine 0.94 0.50-1.40 Lvl) [place] 852652-07-27 09:07:00 Test Item Value Reference Range Interpretation Comments Sodium Lvl (test code = Sodium Lvl) 131 135-145 [place] 852652-07-27 09:07:00 Test Item Value Reference Range Interpretation Comments Potassium Lvl (test code = Potassium 3.2 3.5-5.1 Lvl) [place] 852652-07-27 09:07:00 Test Item Value Reference Range Interpretation Comments Chloride Lvl (test code = Chloride Lvl) 93 95-109 [place] 852652-07-27 09:07:00 Test Item Value Reference Range Interpretation Comments CO2 (test code = CO2) 31 24-32 [place] 852652-07-27 09:07:00 Test Item Value Reference Range Interpretation Comments Calcium Lvl (test code = Calcium Lvl) 8.0 8.5-10.5 [facility] [id number] 09:07:00 Test Item Value Reference Range Interpretation Comments Total Protein (test code = Total 5.7 6.4-8.4 Protein) [place] 852652-07-27 09:07:00 Test Item Value Reference Range Interpretation Comments Albumin Lvl (test code = Albumin Lvl) 2.6 3.5-5.0 [place] 852652-07-27 09:07:00 Test Item Value Reference Range Interpretation Comments ALT (test code = ALT) 18 See_Comment [Auto mated message] The system which ge nerated this result transmit lavon reference range : <=65. The reference range was not used to interpr et this result as dionne l/abnormal. [facility] [id number] 09:07:00 Test Item Value Reference Range Interpretation Comments AST (test code = AST) 28 See_Comment [Auto mated message] The system which ge nerated this result transmit lavon reference range : <=37. The reference range was not used to interpr et this result as dionne l/abnormal. [facility] [id number] 09:07:00 Test Item Value Reference Range Interpretation Comments Alk Phos (test code = Alk Phos) 44 39-136 [facility] [id number] 09:07:00 Test Item Value Reference Range Interpretation Comments Bili Total (test code = Bili Total) 1.1 0.2-1.3 [place] 852652-07-27 09:07:00 Test Item Value Reference Range Interpretation Comments AGAP (test code = AGAP) 10.2 10.0-20.0 [facility] [id number] 09:07:00 Test Item Value Reference Range Interpretation Comments B/C Ratio (test code = B/C Ratio) 31 1 6-25 [facility]2022-07-27 09:07:00 Test Item Value Reference Range Interpretation Comments Globulin (test code = Globulin) 3.1 2.7-4.2 [facility]2022-07-27 09:07:00 Test Item Value Reference Range Interpretation Comments A/G Ratio (test code = A/G Ratio) 0.8 1 0.7-1.6 [facility]2022-07-27 09:07:00 Test Item Value Reference Range Interpretation Comments eGFR (test code = eGFR) 59 [facility] CenterBcdfjnsFNABCWYXUG4443-87-36 09:07:00 Test Item Value Reference Range Interpretation Comments WBC (test code = WBC) 7.2 3.7-10.4 [facility] CenterIezadqkIHSHOJKFUH0753-54-06 09:07:00 Test Item Value Reference Range Interpretation Comments RBC (test code = RBC) 3.06 4.20-5.40 [facility] C[id number] 09:07:00 Test Item Value Reference Range Interpretation Comments Hgb (test code = Hgb) 7.4 12.0-16.0 [facility] CenterBdnmlqaWMPQWPHXNW4074-50-81 09:07:00 Test Item Value Reference Range Interpretation Comments Hct (test code = Hct) 22.5 36.0-48.0 [facility] CenterCsnypbiFIPMFEQWUZ4040-20-61 09:07:00 Test Item Value Reference Range Interpretation Comments MCV (test code = MCV) 73.6 80.0-98.0 [facility] CenterQvuidboFLHFTPAVDJ3774-51-06 09:07:00 Test Item Value Reference Range Interpretation Comments MCH (test code = MCH) 24.2 pg 27.0-31.0 [place] 778932-07-27 09:07:00 Test Item Value Reference Range Interpretation Comments MCHC (test code = MCHC) 32.9 32.0-36.0 [facility] CenterMkhujweRIZFSURHAR5628-25-36 09:07:00 Test Item Value Reference Range Interpretation Comments RDW (test code = RDW) 20.8 11.5-14.5 [facility] CenterAfozigkBWPTPMVVEM2319-41-85 09:07:00 Test Item Value Reference Range Interpretation Comments Platelet (test code = Platelet) 286 133-450 [place] 778932-07-27 09:07:00 Test Item Value Reference Range Interpretation Comments MPV (test code = MPV) 7.4 7.4-10.4 [place] 778932-07-27 09:07:00 Test Item Value Reference Range Interpretation Comments Segs (test code = Segs) 73.8 45.0-75.0 [place] 778932-07-27 09:07:00 Test Item Value Reference Range Interpretation Comments Lymphocytes (test code = Lymphocytes) 17.2 20.0-40.0 [place] 778932-07-27 09:07:00 Test Item Value Reference Range Interpretation Comments Monocytes (test code = Monocytes) 8.8 2.0-12.0 [place] 778932-07-27 09:07:00 Test Item Value Reference Range Interpretation Comments Neutrophils # (test code = Neutrophils 5.3 1.5-8.1 #) [place] 778932-07-27 09:07:00 Test Item Value Reference Range Interpretation Comments Lymphocytes # (test code = Lymphocytes 1.2 1.0-5.5 #) [place] 778932-07-27 09:07:00 Test Item Value Reference Range Interpretation Comments Monocytes # (test code 0.6 See_Comment [Aut omated message] The = Monocytes #) system which generated this result tra nsmitted reference range : <=0.8. The reference r hugo was not used to int erpret this result as normal/abnormal . [place] 778932-07-27 09:07:00 Test Item Value Reference Range Interpretation Comments Microcyte (test code = 1+ *ABN*(06/15/22 Microcyte) 4:07 AM) [place] 852652-07-27 09:07:00 Test Item Value Reference Range Interpretation Comments Glucose Lvl (test code = Glucose Lvl) 108 70-99 [place] 852652-07-27 09:07:00 Test Item Value Reference Range Interpretation Comments BUN (test code = BUN) 29 - [place] 852652-07-27 09:07:00 Test Item Value Reference Range Interpretation Comments Creatinine Lvl (test code = Creatinine 0.94 0.50-1.40 Lvl) [place] 852652-07-27 09:07:00 Test Item Value Reference Range Interpretation Comments Sodium Lvl (test code = Sodium Lvl) 131 135-145 [place] 852652-07-27 09:07:00 Test Item Value Reference Range Interpretation Comments Potassium Lvl (test code = Potassium 3.2 3.5-5.1 Lvl) [place] 852652-07-27 09:07:00 Test Item Value Reference Range Interpretation Comments Chloride Lvl (test code = Chloride Lvl) 93 95-109 [facility] [id number] 09:07:00 Test Item Value Reference Range Interpretation Comments CO2 (test code = CO2) 31 24-32 [facility] [id number] 09:07:00 Test Item Value Reference Range Interpretation Comments Calcium Lvl (test code = Calcium Lvl) 8.0 8.5-10.5 [place] 852652-07-27 09:07:00 Test Item Value Reference Range Interpretation Comments Total Protein (test code = Total 5.7 6.4-8.4 Protein) [place] 852652-07-27 09:07:00 Test Item Value Reference Range Interpretation Comments Albumin Lvl (test code = Albumin Lvl) 2.6 3.5-5.0 [facility] [id number] 09:07:00 Test Item Value Reference Range Interpretation Comments ALT (test code = ALT) 18 See_Comment [Auto mated message] The system which ge nerated this result transmit lavon reference range : <=65. The reference range was not used to interpr et this result as dionne l/abnormal. [facility] [id number] 09:07:00 Test Item Value Reference Range Interpretation Comments AST (test code = AST) 28 See_Comment [Auto mated message] The system which ge nerated this result transmit lavon reference range : <=37. The reference range was not used to interpr et this result as dionne l/abnormal. [facility] [id number] 09:07:00 Test Item Value Reference Range Interpretation Comments Alk Phos (test code = Alk Phos) 44 39-136 [facility] [id number] 09:07:00 Test Item Value Reference Range Interpretation Comments Bili Total (test code = Bili Total) 1.1 0.2-1.3 [place] 852652-07-27 09:07:00 Test Item Value Reference Range Interpretation Comments AGAP (test code = AGAP) 10.2 10.0-20.0 [place] 852652-07-27 09:07:00 Test Item Value Reference Range Interpretation Comments B/C Ratio (test code = B/C Ratio) 31 1 6-25 [place] 852652-07-27 09:07:00 Test Item Value Reference Range Interpretation Comments Globulin (test code = Globulin) 3.1 2.7-4.2 [place] 852652-07-27 09:07:00 Test Item Value Reference Range Interpretation Comments A/G Ratio (test code = A/G Ratio) 0.8 1 0.7-1.6 [place] 852652-07-27 09:07:00 Test Item Value Reference Range Interpretation Comments eGFR (test code = eGFR) 59 [place] 778932-07-27 09:07:00 Test Item Value Reference Range Interpretation Comments WBC (test code = WBC) 7.2 3.7-10.4 [place] 778932-07-27 09:07:00 Test Item Value Reference Range Interpretation Comments RBC (test code = RBC) 3.06 4.20-5.40 [place] 778932-07-27 09:07:00 Test Item Value Reference Range Interpretation Comments Hgb (test code = Hgb) 7.4 12.0-16.0 [place] 778932-07-27 09:07:00 Test Item Value Reference Range Interpretation Comments Hct (test code = Hct) 22.5 36.0-48.0 [place] 778932-07-27 09:07:00 Test Item Value Reference Range Interpretation Comments MCV (test code = MCV) 73.6 80.0-98.0 [place] 778932-07-27 09:07:00 Test Item Value Reference Range Interpretation Comments MCH (test code = MCH) 24.2 pg 27.0-31.0 [place] 778932-07-27 09:07:00 Test Item Value Reference Range Interpretation Comments MCHC (test code = MCHC) 32.9 32.0-36.0 [place] 778932-07-27 09:07:00 Test Item Value Reference Range Interpretation Comments RDW (test code = RDW) 20.8 11.5-14.5 [place] 778932-07-27 09:07:00 Test Item Value Reference Range Interpretation Comments Platelet (test code = Platelet) 286 133-450 [place] 778932-07-27 09:07:00 Test Item Value Reference Range Interpretation Comments MPV (test code = MPV) 7.4 7.4-10.4 [place] 778932-07-27 09:07:00 Test Item Value Reference Range Interpretation Comments Segs (test code = Segs) 73.8 45.0-75.0 [place] 778932-07-27 09:07:00 Test Item Value Reference Range Interpretation Comments Lymphocytes (test code = Lymphocytes) 17.2 20.0-40.0 [place] 778932-07-27 09:07:00 Test Item Value Reference Range Interpretation Comments Monocytes (test code = Monocytes) 8.8 2.0-12.0 [facility] CenterDtxquqjNWRRZTBFPI4561-72-91 09:07:00 Test Item Value Reference Range Interpretation Comments Neutrophils # (test code = Neutrophils 5.3 1.5-8.1 #) [facility] CenterKqcqujpGCWGGFHTZH0140-78-49 09:07:00 Test Item Value Reference Range Interpretation Comments Lymphocytes # (test code = Lymphocytes 1.2 1.0-5.5 #) [facility] CenterYkhwnftWBMXHOYGUV2715-10-26 09:07:00 Test Item Value Reference Range Interpretation Comments Monocytes # (test code 0.6 See_Comment [Aut omated message] The = Monocytes #) system which generated this result tra nsmitted reference range : <=0.8. The reference r hugo was not used to int erpret this result as normal/abnormal . [facility] CenterXiohznaSRBICXFFOI1720-29-65 09:07:00 Test Item Value Reference Range Interpretation Comments Microcyte (test code = 1+ *ABN*(06/15/22 Microcyte) 4:07 AM) [facility]2022-07-27 09:07:00 Test Item Value Reference Range Interpretation Comments Glucose Lvl (test code = Glucose Lvl) 108 70-99 [facility]2022-07-27 09:07:00 Test Item Value Reference Range Interpretation Comments BUN (test code = BUN) 29 7-22 [place] 852652-07-27 09:07:00 Test Item Value Reference Range Interpretation Comments Creatinine Lvl (test code = Creatinine 0.94 0.50-1.40 Lvl) [place] 852652-07-27 09:07:00 Test Item Value Reference Range Interpretation Comments Sodium Lvl (test code = Sodium Lvl) 131 135-145 [place] 852652-07-27 09:07:00 Test Item Value Reference Range Interpretation Comments Potassium Lvl (test code = Potassium 3.2 3.5-5.1 Lvl) [place] [address]-07-27 09:07:00 Test Item Value Reference Range Interpretation Comments Chloride Lvl (test code = Chloride Lvl) 93 95-109 [place] 852652-07-27 09:07:00 Test Item Value Reference Range Interpretation Comments CO2 (test code = CO2) 31 24-32 [place] 852652-07-27 09:07:00 Test Item Value Reference Range Interpretation Comments Calcium Lvl (test code = Calcium Lvl) 8.0 8.5-10.5 [place] 852652-07-27 09:07:00 Test Item Value Reference Range Interpretation Comments Total Protein (test code = Total 5.7 6.4-8.4 Protein) [place] 852652-07-27 09:07:00 Test Item Value Reference Range Interpretation Comments Albumin Lvl (test code = Albumin Lvl) 2.6 3.5-5.0 [place] 852652-07-27 09:07:00 Test Item Value Reference Range Interpretation Comments ALT (test code = ALT) 18 See_Comment [Auto mated message] The system which ge nerated this result transmit lavon reference range : <=65. The reference range was not used to interpr et this result as dionne l/abnormal. [place] [address]-07-27 09:07:00 Test Item Value Reference Range Interpretation Comments AST (test code = AST) 28 See_Comment [Auto mated message] The system which ge nerated this result transmit lavon reference range : <=37. The reference range was not used to interpr et this result as dionne l/abnormal. [place] 852652-07-27 09:07:00 Test Item Value Reference Range Interpretation Comments Alk Phos (test code = Alk Phos) 44 39-136 [place] 852652-07-27 09:07:00 Test Item Value Reference Range Interpretation Comments Bili Total (test code = Bili Total) 1.1 0.2-1.3 [place] 852652-07-27 09:07:00 Test Item Value Reference Range Interpretation Comments AGAP (test code = AGAP) 10.2 10.0-20.0 [place] 852652-07-27 09:07:00 Test Item Value Reference Range Interpretation Comments B/C Ratio (test code = B/C Ratio) 31 1 6-25 [place] 852652-07-27 09:07:00 Test Item Value Reference Range Interpretation Comments Globulin (test code = Globulin) 3.1 2.7-4.2 [place] 852652-07-27 09:07:00 Test Item Value Reference Range Interpretation Comments A/G Ratio (test code = A/G Ratio) 0.8 1 0.7-1.6 [place] 852652-07-27 09:07:00 Test Item Value Reference Range Interpretation Comments eGFR (test code = eGFR) 59 [place] 778932-07-27 09:07:00 Test Item Value Reference Range Interpretation Comments WBC (test code = WBC) 7.2 3.7-10.4 [place] 778932-07-27 09:07:00 Test Item Value Reference Range Interpretation Comments RBC (test code = RBC) 3.06 4.20-5.40 [place] 778932-07-27 09:07:00 Test Item Value Reference Range Interpretation Comments Hgb (test code = Hgb) 7.4 12.0-16.0 [place] [address]-07-27 09:07:00 Test Item Value Reference Range Interpretation Comments Hct (test code = Hct) 22.5 36.0-48.0 [place] 778932-07-27 09:07:00 Test Item Value Reference Range Interpretation Comments MCV (test code = MCV) 73.6 80.0-98.0 [place] 778932-07-27 09:07:00 Test Item Value Reference Range Interpretation Comments MCH (test code = MCH) 24.2 pg 27.0-31.0 [facility] CenterShtkyxmASHZUPOPSE9944-04-93 09:07:00 Test Item Value Reference Range Interpretation Comments MCHC (test code = MCHC) 32.9 32.0-36.0 [facility] CenterZxllklhUHYATHPCMK6142-15-03 09:07:00 Test Item Value Reference Range Interpretation Comments RDW (test code = RDW) 20.8 11.5-14.5 [place] 778932-07-27 09:07:00 Test Item Value Reference Range Interpretation Comments Platelet (test code = Platelet) 286 133-450 [facility] CenterBzewvmsDGNEQAKJDI9661-67-98 09:07:00 Test Item Value Reference Range Interpretation Comments MPV (test code = MPV) 7.4 7.4-10.4 [place] 778932-07-27 09:07:00 Test Item Value Reference Range Interpretation Comments Segs (test code = Segs) 73.8 45.0-75.0 [place] 778932-07-27 09:07:00 Test Item Value Reference Range Interpretation Comments Lymphocytes (test code = Lymphocytes) 17.2 20.0-40.0 [facility] CenterTzxnapvFLSIRBWNMJ9232-21-82 09:07:00 Test Item Value Reference Range Interpretation Comments Monocytes (test code = Monocytes) 8.8 2.0-12.0 [facility] CenterLjwabprNBIHOCLHKH3978-66-15 09:07:00 Test Item Value Reference Range Interpretation Comments Neutrophils # (test code = Neutrophils 5.3 1.5-8.1 #) [facility] CenterGyzpowdRZFUFICNYI5710-65-23 09:07:00 Test Item Value Reference Range Interpretation Comments Lymphocytes # (test code = Lymphocytes 1.2 1.0-5.5 #) [place] 778932-07-27 09:07:00 Test Item Value Reference Range Interpretation Comments Monocytes # (test code 0.6 See_Comment [Aut omated message] The = Monocytes #) system which generated this result tra nsmitted reference range : <=0.8. The reference r hugo was not used to int erpret this result as normal/abnormal . [facility] CenterFllkcfpJUVQZJSZNS3962-90-46 09:07:00 Test Item Value Reference Range Interpretation Comments Microcyte (test code = 1+ *ABN*(06/15/22 Microcyte) 4:07 AM) [place] 852652-07-27 09:07:00 Test Item Value Reference Range Interpretation Comments Glucose Lvl (test code = Glucose Lvl) 108 70-99 [place] 852652-07-27 09:07:00 Test Item Value Reference Range Interpretation Comments BUN (test code = BUN) 29 - [place] 852652-07-27 09:07:00 Test Item Value Reference Range Interpretation Comments Creatinine Lvl (test code = Creatinine 0.94 0.50-1.40 Lvl) [place] 852652-07-27 09:07:00 Test Item Value Reference Range Interpretation Comments Sodium Lvl (test code = Sodium Lvl) 131 135-145 [place] 852652-07-27 09:07:00 Test Item Value Reference Range Interpretation Comments Potassium Lvl (test code = Potassium 3.2 3.5-5.1 Lvl) [place] 852652-07-27 09:07:00 Test Item Value Reference Range Interpretation Comments Chloride Lvl (test code = Chloride Lvl) 93 95-109 [place] 852652-07-27 09:07:00 Test Item Value Reference Range Interpretation Comments CO2 (test code = CO2) 31 24-32 [place] 852652-07-27 09:07:00 Test Item Value Reference Range Interpretation Comments Calcium Lvl (test code = Calcium Lvl) 8.0 8.5-10.5 [place] 852652-07-27 09:07:00 Test Item Value Reference Range Interpretation Comments Total Protein (test code = Total 5.7 6.4-8.4 Protein) [place] 852652-07-27 09:07:00 Test Item Value Reference Range Interpretation Comments Albumin Lvl (test code = Albumin Lvl) 2.6 3.5-5.0 [place] 852652-07-27 09:07:00 Test Item Value Reference Range Interpretation Comments ALT (test code = ALT) 18 See_Comment [Auto mated message] The system which ge nerated this result transmit lavon reference range : <=65. The reference range was not used to interpr et this result as dionne l/abnormal. [place] 852652-07-27 09:07:00 Test Item Value Reference Range Interpretation Comments AST (test code = AST) 28 See_Comment [Auto mated message] The system which ge nerated this result transmit lavon reference range : <=37. The reference range was not used to interpr et this result as dionne l/abnormal. [facility] [id number] 09:07:00 Test Item Value Reference Range Interpretation Comments Alk Phos (test code = Alk Phos) 44 39-136 [facility] [id number] 09:07:00 Test Item Value Reference Range Interpretation Comments Bili Total (test code = Bili Total) 1.1 0.2-1.3 [facility] [id number] 09:07:00 Test Item Value Reference Range Interpretation Comments AGAP (test code = AGAP) 10.2 10.0-20.0 [facility] [id number] 09:07:00 Test Item Value Reference Range Interpretation Comments B/C Ratio (test code = B/C Ratio) 31 1 6-25 [facility] [id number] 09:07:00 Test Item Value Reference Range Interpretation Comments Globulin (test code = Globulin) 3.1 2.7-4.2 [facility] [id number] 09:07:00 Test Item Value Reference Range Interpretation Comments A/G Ratio (test code = A/G Ratio) 0.8 1 0.7-1.6 [facility] [id number] 09:07:00 Test Item Value Reference Range Interpretation Comments eGFR (test code = eGFR) 59 [facility]villeKyaroegTZKRZUREAY1786-77-28 09:07:00 Test Item Value Reference Range Interpretation Comments WBC (test code = WBC) 7.2 3.7-10.4 [place] 778932-07-27 09:07:00 Test Item Value Reference Range Interpretation Comments RBC (test code = RBC) 3.06 4.20-5.40 [place] 778932-07-27 09:07:00 Test Item Value Reference Range Interpretation Comments Hgb (test code = Hgb) 7.4 12.0-16.0 [facility]villeUiyrzneENWMPNFABO1392-79-93 09:07:00 Test Item Value Reference Range Interpretation Comments Hct (test code = Hct) 22.5 36.0-48.0 [place] 778932-07-27 09:07:00 Test Item Value Reference Range Interpretation Comments MCV (test code = MCV) 73.6 80.0-98.0 [place] 778932-07-27 09:07:00 Test Item Value Reference Range Interpretation Comments MCH (test code = MCH) 24.2 pg 27.0-31.0 [facility]UvxitqfRTBUUOEOPU8906-44-56 09:07:00 Test Item Value Reference Range Interpretation Comments MCHC (test code = MCHC) 32.9 32.0-36.0 [place] 778932-07-27 09:07:00 Test Item Value Reference Range Interpretation Comments RDW (test code = RDW) 20.8 11.5-14.5 [place] 778932-07-27 09:07:00 Test Item Value Reference Range Interpretation Comments Platelet (test code = Platelet) 286 133-450 [facility] CenterPfoczrrPDEZCJWOWV6888-57-30 09:07:00 Test Item Value Reference Range Interpretation Comments MPV (test code = MPV) 7.4 7.4-10.4 [place] 778932-07-27 09:07:00 Test Item Value Reference Range Interpretation Comments Segs (test code = Segs) 73.8 45.0-75.0 [place] 778932-07-27 09:07:00 Test Item Value Reference Range Interpretation Comments Lymphocytes (test code = Lymphocytes) 17.2 20.0-40.0 [facility] CenterIbqqlciATCGDCTEAU1488-14-19 09:07:00 Test Item Value Reference Range Interpretation Comments Monocytes (test code = Monocytes) 8.8 2.0-12.0 [facility] CenterKmxctiuFGVLLZWJDH3570-02-86 09:07:00 Test Item Value Reference Range Interpretation Comments Neutrophils # (test code = Neutrophils 5.3 1.5-8.1 #) [facility] CenterJpjwcmlXCZOBVHUEE1081-67-74 09:07:00 Test Item Value Reference Range Interpretation Comments Lymphocytes # (test code = Lymphocytes 1.2 1.0-5.5 #) [facility] CenterWvydejyHCTTZGRVBX6121-39-06 09:07:00 Test Item Value Reference Range Interpretation Comments Monocytes # (test code 0.6 See_Comment [Aut omated message] The = Monocytes #) system which generated this result tra nsmitted reference range : <=0.8. The reference r hugo was not used to int erpret this result as normal/abnormal . [facility] CenterSszwulhWRUMXWUQXU5893-90-09 09:07:00 Test Item Value Reference Range Interpretation Comments Microcyte (test code = 1+ *ABN*(06/15/22 Microcyte) 4:07 AM) [place] 852652-07-27 09:07:00 Test Item Value Reference Range Interpretation Comments Glucose Lvl (test code = Glucose Lvl) 108 70-99 [place] 852652-07-27 09:07:00 Test Item Value Reference Range Interpretation Comments BUN (test code = BUN) 29 -22 [place] 852652-07-27 09:07:00 Test Item Value Reference Range Interpretation Comments Creatinine Lvl (test code = Creatinine 0.94 0.50-1.40 Lvl) [place] 852652-07-27 09:07:00 Test Item Value Reference Range Interpretation Comments Sodium Lvl (test code = Sodium Lvl) 131 135-145 [place] 852652-07-27 09:07:00 Test Item Value Reference Range Interpretation Comments Potassium Lvl (test code = Potassium 3.2 3.5-5.1 Lvl) [place] 852652-07-27 09:07:00 Test Item Value Reference Range Interpretation Comments Chloride Lvl (test code = Chloride Lvl) 93 95-109 [place] 852652-07-27 09:07:00 Test Item Value Reference Range Interpretation Comments CO2 (test code = CO2) 31 24-32 [place] 852652-07-27 09:07:00 Test Item Value Reference Range Interpretation Comments Calcium Lvl (test code = Calcium Lvl) 8.0 8.5-10.5 [place] 852652-07-27 09:07:00 Test Item Value Reference Range Interpretation Comments Total Protein (test code = Total 5.7 6.4-8.4 Protein) [place] 852652-07-27 09:07:00 Test Item Value Reference Range Interpretation Comments Albumin Lvl (test code = Albumin Lvl) 2.6 3.5-5.0 [place] 852652-07-27 09:07:00 Test Item Value Reference Range Interpretation Comments ALT (test code = ALT) 18 See_Comment [Auto mated message] The system which ge nerated this result transmit lavon reference range : <=65. The reference range was not used to interpr et this result as dionne l/abnormal. [facility] [id number] 09:07:00 Test Item Value Reference Range Interpretation Comments AST (test code = AST) 28 See_Comment [Auto mated message] The system which ge nerated this result transmit lavon reference range : <=37. The reference range was not used to interpr et this result as dionne l/abnormal. [facility] [employer] [id number] 09:07:00 Test Item Value Reference Range Interpretation Comments Alk Phos (test code = Alk Phos) 44 39-136 [facility] [id number] 09:07:00 Test Item Value Reference Range Interpretation Comments Bili Total (test code = Bili Total) 1.1 0.2-1.3 [facility] [id number] 09:07:00 Test Item Value Reference Range Interpretation Comments AGAP (test code = AGAP) 10.2 10.0-20.0 [facility] [id number] 09:07:00 Test Item Value Reference Range Interpretation Comments B/C Ratio (test code = B/C Ratio) 31 1 6-25 [facility] [id number] 09:07:00 Test Item Value Reference Range Interpretation Comments Globulin (test code = Globulin) 3.1 2.7-4.2 [facility] [id number] 09:07:00 Test Item Value Reference Range Interpretation Comments A/G Ratio (test code = A/G Ratio) 0.8 1 0.7-1.6 [facility] [id number] 09:07:00 Test Item Value Reference Range Interpretation Comments eGFR (test code = eGFR) 59 [facility]villeGysqzfbAMSERYGRAW5387-19-50 09:07:00 Test Item Value Reference Range Interpretation Comments WBC (test code = WBC) 7.2 3.7-10.4 [facility] GreenvilleCwovdbiVNHXOUPLRB2338-99-24 09:07:00 Test Item Value Reference Range Interpretation Comments RBC (test code = RBC) 3.06 4.20-5.40 [place] 778932-07-27 09:07:00 Test Item Value Reference Range Interpretation Comments Hgb (test code = Hgb) 7.4 12.0-16.0 [place] 778932-07-27 09:07:00 Test Item Value Reference Range Interpretation Comments Hct (test code = Hct) 22.5 36.0-48.0 [place] 778932-07-27 09:07:00 Test Item Value Reference Range Interpretation Comments MCV (test code = MCV) 73.6 80.0-98.0 [place] 778932-07-27 09:07:00 Test Item Value Reference Range Interpretation Comments MCH (test code = MCH) 24.2 pg 27.0-31.0 [facility] CenterCeelgbtLXECDAHYEA4150-82-08 09:07:00 Test Item Value Reference Range Interpretation Comments MCHC (test code = MCHC) 32.9 32.0-36.0 [place] 778932-07-27 09:07:00 Test Item Value Reference Range Interpretation Comments RDW (test code = RDW) 20.8 11.5-14.5 [place] 778932-07-27 09:07:00 Test Item Value Reference Range Interpretation Comments Platelet (test code = Platelet) 286 133-450 [facility] CenterJxahqrwNBZEZOYTJS3433-79-14 09:07:00 Test Item Value Reference Range Interpretation Comments MPV (test code = MPV) 7.4 7.4-10.4 [place] 778932-07-27 09:07:00 Test Item Value Reference Range Interpretation Comments Segs (test code = Segs) 73.8 45.0-75.0 [place] 778932-07-27 09:07:00 Test Item Value Reference Range Interpretation Comments Lymphocytes (test code = Lymphocytes) 17.2 20.0-40.0 [place] 778932-07-27 09:07:00 Test Item Value Reference Range Interpretation Comments Monocytes (test code = Monocytes) 8.8 2.0-12.0 [place] 778932-07-27 09:07:00 Test Item Value Reference Range Interpretation Comments Neutrophils # (test code = Neutrophils 5.3 1.5-8.1 #) [place] 778932-07-27 09:07:00 Test Item Value Reference Range Interpretation Comments Lymphocytes # (test code = Lymphocytes 1.2 1.0-5.5 #) [facility] [id number] 09:07:00 Test Item Value Reference Range Interpretation Comments Monocytes # (test code 0.6 See_Comment [Aut omated message] The = Monocytes #) system which generated this result tra nsmitted reference range : <=0.8. The reference r hugo was not used to int erpret this result as normal/abnormal . [place] 778932-07-27 09:07:00 Test Item Value Reference Range Interpretation Comments Microcyte (test code = 1+ *ABN*(06/15/22 Microcyte) 4:07 AM) [place] 852652-07-27 09:07:00 Test Item Value Reference Range Interpretation Comments Glucose Lvl (test code = Glucose Lvl) 108 70-99 [place] 852652-07-27 09:07:00 Test Item Value Reference Range Interpretation Comments BUN (test code = BUN) 29 -22 [place] 852652-07-27 09:07:00 Test Item Value Reference Range Interpretation Comments Creatinine Lvl (test code = Creatinine 0.94 0.50-1.40 Lvl) [place] 852652-07-27 09:07:00 Test Item Value Reference Range Interpretation Comments Sodium Lvl (test code = Sodium Lvl) 131 135-145 [place] 852652-07-27 09:07:00 Test Item Value Reference Range Interpretation Comments Potassium Lvl (test code = Potassium 3.2 3.5-5.1 Lvl) [place] 852652-07-27 09:07:00 Test Item Value Reference Range Interpretation Comments Chloride Lvl (test code = Chloride Lvl) 93 95-109 [place] 852652-07-27 09:07:00 Test Item Value Reference Range Interpretation Comments CO2 (test code = CO2) 31 24-32 [place] 852652-07-27 09:07:00 Test Item Value Reference Range Interpretation Comments Calcium Lvl (test code = Calcium Lvl) 8.0 8.5-10.5 [place] 852652-07-27 09:07:00 Test Item Value Reference Range Interpretation Comments Total Protein (test code = Total 5.7 6.4-8.4 Protein) [place] 852652-07-27 09:07:00 Test Item Value Reference Range Interpretation Comments Albumin Lvl (test code = Albumin Lvl) 2.6 3.5-5.0 [place] 852652-07-27 09:07:00 Test Item Value Reference Range Interpretation Comments ALT (test code = ALT) 18 See_Comment [Auto mated message] The system which ge nerated this result transmit lavon reference range : <=65. The reference range was not used to interpr et this result as dionne l/abnormal. [place] [address]-07-27 09:07:00 Test Item Value Reference Range Interpretation Comments AST (test code = AST) 28 See_Comment [Auto mated message] The system which ge nerated this result transmit lavon reference range : <=37. The reference range was not used to interpr et this result as dionne l/abnormal. [place] 852652-07-27 09:07:00 Test Item Value Reference Range Interpretation Comments Alk Phos (test code = Alk Phos) 44 39-136 [place] 852652-07-27 09:07:00 Test Item Value Reference Range Interpretation Comments Bili Total (test code = Bili Total) 1.1 0.2-1.3 [place] 852652-07-27 09:07:00 Test Item Value Reference Range Interpretation Comments AGAP (test code = AGAP) 10.2 10.0-20.0 [place] 852652-07-27 09:07:00 Test Item Value Reference Range Interpretation Comments B/C Ratio (test code = B/C Ratio) 31 1 6-25 [place] 852652-07-27 09:07:00 Test Item Value Reference Range Interpretation Comments Globulin (test code = Globulin) 3.1 2.7-4.2 [place] [address]-07-27 09:07:00 Test Item Value Reference Range Interpretation Comments A/G Ratio (test code = A/G Ratio) 0.8 1 0.7-1.6 [place] [address]-07-27 09:07:00 Test Item Value Reference Range Interpretation Comments eGFR (test code = eGFR) 59 [facility] CenterQofxdrfSNMFAJMSVY4230-48-59 09:07:00 Test Item Value Reference Range Interpretation Comments WBC (test code = WBC) 7.2 3.7-10.4 [facility] CenterEvblivaUYLJSDBNUI1735-98-60 09:07:00 Test Item Value Reference Range Interpretation Comments RBC (test code = RBC) 3.06 4.20-5.40 [facility] CenterEihsfnbPUHRAGHJAY8268-86-28 09:07:00 Test Item Value Reference Range Interpretation Comments Hgb (test code = Hgb) 7.4 12.0-16.0 [facility] CenterEgwyoltKTKSIVKPWW8810-01-52 09:07:00 Test Item Value Reference Range Interpretation Comments Hct (test code = Hct) 22.5 36.0-48.0 [place] 778932-07-27 09:07:00 Test Item Value Reference Range Interpretation Comments MCV (test code = MCV) 73.6 80.0-98.0 [facility] CenterPsgltatSNHZBWRIPM4919-77-10 09:07:00 Test Item Value Reference Range Interpretation Comments MCH (test code = MCH) 24.2 pg 27.0-31.0 [facility] CenterCwhhmahBCOUZGJKEM9446-17-61 09:07:00 Test Item Value Reference Range Interpretation Comments MCHC (test code = MCHC) 32.9 32.0-36.0 [facility] CenterTmchnztWUGFVXCFWA0472-39-08 09:07:00 Test Item Value Reference Range Interpretation Comments RDW (test code = RDW) 20.8 11.5-14.5 [facility] CenterQaawfsrGJCOQKROSV1775-58-49 09:07:00 Test Item Value Reference Range Interpretation Comments Platelet (test code = Platelet) 286 133-450 [facility] CenterEusvklnHUSQKSEVOC4735-91-45 09:07:00 Test Item Value Reference Range Interpretation Comments MPV (test code = MPV) 7.4 7.4-10.4 [facility] CenterFylomwjTQAKPNIMTL7509-29-63 09:07:00 Test Item Value Reference Range Interpretation Comments Segs (test code = Segs) 73.8 45.0-75.0 [facility] CenterYqtxwlvWHXRUUUHGT8364-55-25 09:07:00 Test Item Value Reference Range Interpretation Comments Lymphocytes (test code = Lymphocytes) 17.2 20.0-40.0 [facility] CenterYtxgnkrTZNAFSDTPK2888-83-48 09:07:00 Test Item Value Reference Range Interpretation Comments Monocytes (test code = Monocytes) 8.8 2.0-12.0 [place] 778932-07-27 09:07:00 Test Item Value Reference Range Interpretation Comments Neutrophils # (test code = Neutrophils 5.3 1.5-8.1 #) [place] 778932-07-27 09:07:00 Test Item Value Reference Range Interpretation Comments Lymphocytes # (test code = Lymphocytes 1.2 1.0-5.5 #) [place] 778932-07-27 09:07:00 Test Item Value Reference Range Interpretation Comments Monocytes # (test code 0.6 See_Comment [Aut omated message] The = Monocytes #) system which generated this result tra nsmitted reference range : <=0.8. The reference r hugo was not used to int erpret this result as normal/abnormal . [place] 778932-07-27 09:07:00 Test Item Value Reference Range Interpretation Comments Microcyte (test code = 1+ *ABN*(06/15/22 Microcyte) 4:07 AM) [place] 852652-07-27 09:07:00 Test Item Value Reference Range Interpretation Comments Glucose Lvl (test code = Glucose Lvl) 108 70-99 [place] 852652-07-27 09:07:00 Test Item Value Reference Range Interpretation Comments BUN (test code = BUN) 29 - [place] 852652-07-27 09:07:00 Test Item Value Reference Range Interpretation Comments Creatinine Lvl (test code = Creatinine 0.94 0.50-1.40 Lvl) [place] 852652-07-27 09:07:00 Test Item Value Reference Range Interpretation Comments Sodium Lvl (test code = Sodium Lvl) 131 135-145 [place] 852652-07-27 09:07:00 Test Item Value Reference Range Interpretation Comments Potassium Lvl (test code = Potassium 3.2 3.5-5.1 Lvl) [place] 852652-07-27 09:07:00 Test Item Value Reference Range Interpretation Comments Chloride Lvl (test code = Chloride Lvl) 93 95-109 [place] 852652-07-27 09:07:00 Test Item Value Reference Range Interpretation Comments CO2 (test code = CO2) 31 24-32 [place] 852652-07-27 09:07:00 Test Item Value Reference Range Interpretation Comments Calcium Lvl (test code = Calcium Lvl) 8.0 8.5-10.5 [facility] [id number] 09:07:00 Test Item Value Reference Range Interpretation Comments Total Protein (test code = Total 5.7 6.4-8.4 Protein) [facility] [id number] 09:07:00 Test Item Value Reference Range Interpretation Comments Albumin Lvl (test code = Albumin Lvl) 2.6 3.5-5.0 [facility] [id number] 09:07:00 Test Item Value Reference Range Interpretation Comments ALT (test code = ALT) 18 See_Comment [Auto mated message] The system which ge nerated this result transmit lavon reference range : <=65. The reference range was not used to interpr et this result as dionne l/abnormal. [facility] [id number] 09:07:00 Test Item Value Reference Range Interpretation Comments AST (test code = AST) 28 See_Comment [Auto mated message] The system which ge nerated this result transmit lavon reference range : <=37. The reference range was not used to interpr et this result as dionne l/abnormal. [facility] [id number] 09:07:00 Test Item Value Reference Range Interpretation Comments Alk Phos (test code = Alk Phos) 44 39-136 [facility] [id number] 09:07:00 Test Item Value Reference Range Interpretation Comments Bili Total (test code = Bili Total) 1.1 0.2-1.3 [facility] [id number] 09:07:00 Test Item Value Reference Range Interpretation Comments AGAP (test code = AGAP) 10.2 10.0-20.0 [facility] [employer] [id number] 09:07:00 Test Item Value Reference Range Interpretation Comments B/C Ratio (test code = B/C Ratio) 31 1 6-25 [facility] [id number] 09:07:00 Test Item Value Reference Range Interpretation Comments Globulin (test code = Globulin) 3.1 2.7-4.2 [facility] [id number] 09:07:00 Test Item Value Reference Range Interpretation Comments A/G Ratio (test code = A/G Ratio) 0.8 1 0.7-1.6 [facility]2022-07-27 09:07:00 Test Item Value Reference Range Interpretation Comments eGFR (test code = eGFR) 59 [facility] CenterOlpmxpkLVKURQITQT5390-67-86 09:07:00 Test Item Value Reference Range Interpretation Comments WBC (test code = WBC) 7.2 3.7-10.4 [place] 778932-07-27 09:07:00 Test Item Value Reference Range Interpretation Comments RBC (test code = RBC) 3.06 4.20-5.40 [place] 778932-07-27 09:07:00 Test Item Value Reference Range Interpretation Comments Hgb (test code = Hgb) 7.4 12.0-16.0 [place] 778932-07-27 09:07:00 Test Item Value Reference Range Interpretation Comments Hct (test code = Hct) 22.5 36.0-48.0 [place] 778932-07-27 09:07:00 Test Item Value Reference Range Interpretation Comments MCV (test code = MCV) 73.6 80.0-98.0 [place] 778932-07-27 09:07:00 Test Item Value Reference Range Interpretation Comments MCH (test code = MCH) 24.2 pg 27.0-31.0 [facility] CenterIjfbxveZDWXXAHEYG7617-86-99 09:07:00 Test Item Value Reference Range Interpretation Comments MCHC (test code = MCHC) 32.9 32.0-36.0 [place] 778932-07-27 09:07:00 Test Item Value Reference Range Interpretation Comments RDW (test code = RDW) 20.8 11.5-14.5 [place] 778932-07-27 09:07:00 Test Item Value Reference Range Interpretation Comments Platelet (test code = Platelet) 286 133-450 [place] 778932-07-27 09:07:00 Test Item Value Reference Range Interpretation Comments MPV (test code = MPV) 7.4 7.4-10.4 [place] 778932-07-27 09:07:00 Test Item Value Reference Range Interpretation Comments Segs (test code = Segs) 73.8 45.0-75.0 [place] [address]-07-27 09:07:00 Test Item Value Reference Range Interpretation Comments Lymphocytes (test code = Lymphocytes) 17.2 20.0-40.0 [place] [address]-07-27 09:07:00 Test Item Value Reference Range Interpretation Comments Monocytes (test code = Monocytes) 8.8 2.0-12.0 [place] [address]-07-27 09:07:00 Test Item Value Reference Range Interpretation Comments Neutrophils # (test code = Neutrophils 5.3 1.5-8.1 #) [place] [address]-07-27 09:07:00 Test Item Value Reference Range Interpretation Comments Lymphocytes # (test code = Lymphocytes 1.2 1.0-5.5 #) [place] [address]-07-27 09:07:00 Test Item Value Reference Range Interpretation Comments Monocytes # (test code 0.6 See_Comment [Aut omated message] The = Monocytes #) system which generated this result tra nsmitted reference range : <=0.8. The reference r hugo was not used to int erpret this result as normal/abnormal . [place] 778932-07-27 09:07:00 Test Item Value Reference Range Interpretation Comments Microcyte (test code = 1+ *ABN*(06/15/22 Microcyte) 4:07 AM) [place] 852652-07-27 09:07:00 Test Item Value Reference Range Interpretation Comments Glucose Lvl (test code = Glucose Lvl) 108 70-99 [place] 852652-07-27 09:07:00 Test Item Value Reference Range Interpretation Comments BUN (test code = BUN) 29 - [place] 852652-07-27 09:07:00 Test Item Value Reference Range Interpretation Comments Creatinine Lvl (test code = Creatinine 0.94 0.50-1.40 Lvl) [place] 852652-07-27 09:07:00 Test Item Value Reference Range Interpretation Comments Sodium Lvl (test code = Sodium Lvl) 131 135-145 [place] 852652-07-27 09:07:00 Test Item Value Reference Range Interpretation Comments Potassium Lvl (test code = Potassium 3.2 3.5-5.1 Lvl) [place] 852652-07-27 09:07:00 Test Item Value Reference Range Interpretation Comments Chloride Lvl (test code = Chloride Lvl) 93 95-109 [facility] [id number] 09:07:00 Test Item Value Reference Range Interpretation Comments CO2 (test code = CO2) 31 24-32 [place] 852652-07-27 09:07:00 Test Item Value Reference Range Interpretation Comments Calcium Lvl (test code = Calcium Lvl) 8.0 8.5-10.5 [facility] [id number] 09:07:00 Test Item Value Reference Range Interpretation Comments Total Protein (test code = Total 5.7 6.4-8.4 Protein) [facility] [id number] 09:07:00 Test Item Value Reference Range Interpretation Comments Albumin Lvl (test code = Albumin Lvl) 2.6 3.5-5.0 [facility] [id number] 09:07:00 Test Item Value Reference Range Interpretation Comments ALT (test code = ALT) 18 See_Comment [Auto mated message] The system which ge nerated this result transmit lavon reference range : <=65. The reference range was not used to interpr et this result as dionne l/abnormal. [facility] [id number] 09:07:00 Test Item Value Reference Range Interpretation Comments AST (test code = AST) 28 See_Comment [Auto mated message] The system which ge nerated this result transmit lavon reference range : <=37. The reference range was not used to interpr et this result as dionne l/abnormal. [facility] [id number] 09:07:00 Test Item Value Reference Range Interpretation Comments Alk Phos (test code = Alk Phos) 44 39-136 [facility] [id number] 09:07:00 Test Item Value Reference Range Interpretation Comments Bili Total (test code = Bili Total) 1.1 0.2-1.3 [facility] [id number] 09:07:00 Test Item Value Reference Range Interpretation Comments AGAP (test code = AGAP) 10.2 10.0-20.0 [facility] [id number] 09:07:00 Test Item Value Reference Range Interpretation Comments B/C Ratio (test code = B/C Ratio) 31 1 6-25 [facility]2022-07-27 09:07:00 Test Item Value Reference Range Interpretation Comments Globulin (test code = Globulin) 3.1 2.7-4.2 [facility]2022-07-27 09:07:00 Test Item Value Reference Range Interpretation Comments A/G Ratio (test code = A/G Ratio) 0.8 1 0.7-1.6 [place] 852652-07-27 09:07:00 Test Item Value Reference Range Interpretation Comments eGFR (test code = eGFR) 59 [facility]JlvsivqASWGCCSTQU5440[facility]-27 09:07:00 Test Item Value Reference Range Interpretation Comments WBC (test code = WBC) 7.2 3.7-10.4 [place] 778932-07-27 09:07:00 Test Item Value Reference Range Interpretation Comments RBC (test code = RBC) 3.06 4.20-5.40 [place] 778932-07-27 09:07:00 Test Item Value Reference Range Interpretation Comments Hgb (test code = Hgb) 7.4 12.0-16.0 [facility] CenterGqzbfnlSFUELJFVMO1160-58-07 09:07:00 Test Item Value Reference Range Interpretation Comments Hct (test code = Hct) 22.5 36.0-48.0 [facility] CenterUucalesSKNGANVZJK5486-70-63 09:07:00 Test Item Value Reference Range Interpretation Comments MCV (test code = MCV) 73.6 80.0-98.0 [place] 778932-07-27 09:07:00 Test Item Value Reference Range Interpretation Comments MCH (test code = MCH) 24.2 pg 27.0-31.0 [place] 778932-07-27 09:07:00 Test Item Value Reference Range Interpretation Comments MCHC (test code = MCHC) 32.9 32.0-36.0 [facility] CenterMzdloogGEVDXEMVWR3786-89-95 09:07:00 Test Item Value Reference Range Interpretation Comments RDW (test code = RDW) 20.8 11.5-14.5 [facility] CenterKbeszqzJTTNYFUSOW4758-26-63 09:07:00 Test Item Value Reference Range Interpretation Comments Platelet (test code = Platelet) 286 133-450 [facility] CenterNpnxnunJHTMCWHZRV2490-74-29 09:07:00 Test Item Value Reference Range Interpretation Comments MPV (test code = MPV) 7.4 7.4-10.4 [place] 778932-07-27 09:07:00 Test Item Value Reference Range Interpretation Comments Segs (test code = Segs) 73.8 45.0-75.0 [place] 778932-07-27 09:07:00 Test Item Value Reference Range Interpretation Comments Lymphocytes (test code = Lymphocytes) 17.2 20.0-40.0 [place] 778932-07-27 09:07:00 Test Item Value Reference Range Interpretation Comments Monocytes (test code = Monocytes) 8.8 2.0-12.0 [place] 778932-07-27 09:07:00 Test Item Value Reference Range Interpretation Comments Neutrophils # (test code = Neutrophils 5.3 1.5-8.1 #) [place] 778932-07-27 09:07:00 Test Item Value Reference Range Interpretation Comments Lymphocytes # (test code = Lymphocytes 1.2 1.0-5.5 #) [place] 778932-07-27 09:07:00 Test Item Value Reference Range Interpretation Comments Monocytes # (test code 0.6 See_Comment [Aut omated message] The = Monocytes #) system which generated this result tra nsmitted reference range : <=0.8. The reference r hugo was not used to int erpret this result as normal/abnormal . [facility] [id number] 09:07:00 Test Item Value Reference Range Interpretation Comments Microcyte (test code = 1+ *ABN*(06/15/22 Microcyte) 4:07 AM) [place] 852652-07-27 09:07:00 Test Item Value Reference Range Interpretation Comments Glucose Lvl (test code = Glucose Lvl) 108 70-99 [place] 852652-07-27 09:07:00 Test Item Value Reference Range Interpretation Comments BUN (test code = BUN) 29 - [place] 852652-07-27 09:07:00 Test Item Value Reference Range Interpretation Comments Creatinine Lvl (test code = Creatinine 0.94 0.50-1.40 Lvl) [place] 852652-07-27 09:07:00 Test Item Value Reference Range Interpretation Comments Sodium Lvl (test code = Sodium Lvl) 131 135-145 [facility] [id number] 09:07:00 Test Item Value Reference Range Interpretation Comments Potassium Lvl (test code = Potassium 3.2 3.5-5.1 Lvl) [place] 852652-07-27 09:07:00 Test Item Value Reference Range Interpretation Comments Chloride Lvl (test code = Chloride Lvl) 93 95-109 [facility] [id number] 09:07:00 Test Item Value Reference Range Interpretation Comments CO2 (test code = CO2) 31 24-32 [facility] [id number] 09:07:00 Test Item Value Reference Range Interpretation Comments Calcium Lvl (test code = Calcium Lvl) 8.0 8.5-10.5 [facility] [id number] 09:07:00 Test Item Value Reference Range Interpretation Comments Total Protein (test code = Total 5.7 6.4-8.4 Protein) [facility] [id number] 09:07:00 Test Item Value Reference Range Interpretation Comments Albumin Lvl (test code = Albumin Lvl) 2.6 3.5-5.0 [facility] [id number] 09:07:00 Test Item Value Reference Range Interpretation Comments ALT (test code = ALT) 18 See_Comment [Auto mated message] The system which ge nerated this result transmit lavon reference range : <=65. The reference range was not used to interpr et this result as dionne l/abnormal. [facility] [id number] 09:07:00 Test Item Value Reference Range Interpretation Comments AST (test code = AST) 28 See_Comment [Auto mated message] The system which ge nerated this result transmit lavon reference range : <=37. The reference range was not used to interpr et this result as dionne l/abnormal. [facility] [id number] 09:07:00 Test Item Value Reference Range Interpretation Comments Alk Phos (test code = Alk Phos) 44 39-136 [facility] [id number] 09:07:00 Test Item Value Reference Range Interpretation Comments Bili Total (test code = Bili Total) 1.1 0.2-1.3 [place] 852652-07-27 09:07:00 Test Item Value Reference Range Interpretation Comments AGAP (test code = AGAP) 10.2 10.0-20.0 [place] 852652-07-27 09:07:00 Test Item Value Reference Range Interpretation Comments B/C Ratio (test code = B/C Ratio) 31 1 6-25 [place] [address]-07-27 09:07:00 Test Item Value Reference Range Interpretation Comments Globulin (test code = Globulin) 3.1 2.7-4.2 [place] 852652-07-27 09:07:00 Test Item Value Reference Range Interpretation Comments A/G Ratio (test code = A/G Ratio) 0.8 1 0.7-1.6 [place] 852652-07-27 09:07:00 Test Item Value Reference Range Interpretation Comments eGFR (test code = eGFR) 59 [place] 778932-07-27 09:07:00 Test Item Value Reference Range Interpretation Comments WBC (test code = WBC) 7.2 3.7-10.4 [place] 778932-07-27 09:07:00 Test Item Value Reference Range Interpretation Comments RBC (test code = RBC) 3.06 4.20-5.40 [place] 778932-07-27 09:07:00 Test Item Value Reference Range Interpretation Comments Hgb (test code = Hgb) 7.4 12.0-16.0 [place] 778932-07-27 09:07:00 Test Item Value Reference Range Interpretation Comments Hct (test code = Hct) 22.5 36.0-48.0 [place] 778932-07-27 09:07:00 Test Item Value Reference Range Interpretation Comments MCV (test code = MCV) 73.6 80.0-98.0 [place] 778932-07-27 09:07:00 Test Item Value Reference Range Interpretation Comments MCH (test code = MCH) 24.2 pg 27.0-31.0 [place] 778932-07-27 09:07:00 Test Item Value Reference Range Interpretation Comments MCHC (test code = MCHC) 32.9 32.0-36.0 [place] 778932-07-27 09:07:00 Test Item Value Reference Range Interpretation Comments RDW (test code = RDW) 20.8 11.5-14.5 [place] 778932-07-27 09:07:00 Test Item Value Reference Range Interpretation Comments Platelet (test code = Platelet) 286 133-450 [place] 778932-07-27 09:07:00 Test Item Value Reference Range Interpretation Comments MPV (test code = MPV) 7.4 7.4-10.4 [place] 778932-07-27 09:07:00 Test Item Value Reference Range Interpretation Comments Segs (test code = Segs) 73.8 45.0-75.0 [place] 778932-07-27 09:07:00 Test Item Value Reference Range Interpretation Comments Lymphocytes (test code = Lymphocytes) 17.2 20.0-40.0 [place] 778932-07-27 09:07:00 Test Item Value Reference Range Interpretation Comments Monocytes (test code = Monocytes) 8.8 2.0-12.0 [place] 778932-07-27 09:07:00 Test Item Value Reference Range Interpretation Comments Neutrophils # (test code = Neutrophils 5.3 1.5-8.1 #) [facility] CenterBjzlpqbGACUJXNVWG6311-80-20 09:07:00 Test Item Value Reference Range Interpretation Comments Lymphocytes # (test code = Lymphocytes 1.2 1.0-5.5 #) [facility] CenterOwnbrdzQGRAUYCPLZ2339-28-40 09:07:00 Test Item Value Reference Range Interpretation Comments Monocytes # (test code 0.6 See_Comment [Aut omated message] The = Monocytes #) system which generated this result tra nsmitted reference range : <=0.8. The reference r hugo was not used to int erpret this result as normal/abnormal . [facility] CenterBkebhhkKMKXLJEQXU1149-45-30 09:07:00 Test Item Value Reference Range Interpretation Comments Microcyte (test code = 1+ *ABN*(06/15/22 Microcyte) 4:07 AM) [facility]2022-07-27 09:07:00 Test Item Value Reference Range Interpretation Comments Glucose Lvl (test code = Glucose Lvl) 108 70-99 [facility]2022-07-27 09:07:00 Test Item Value Reference Range Interpretation Comments BUN (test code = BUN) 29 7-22 [place] 852652-07-27 09:07:00 Test Item Value Reference Range Interpretation Comments Creatinine Lvl (test code = Creatinine 0.94 0.50-1.40 Lvl) [place] 852652-07-27 09:07:00 Test Item Value Reference Range Interpretation Comments Sodium Lvl (test code = Sodium Lvl) 131 135-145 [place] 852652-07-27 09:07:00 Test Item Value Reference Range Interpretation Comments Potassium Lvl (test code = Potassium 3.2 3.5-5.1 Lvl) [place] [address]-07-27 09:07:00 Test Item Value Reference Range Interpretation Comments Chloride Lvl (test code = Chloride Lvl) 93 95-109 [place] 852652-07-27 09:07:00 Test Item Value Reference Range Interpretation Comments CO2 (test code = CO2) 31 24-32 [place] 852652-07-27 09:07:00 Test Item Value Reference Range Interpretation Comments Calcium Lvl (test code = Calcium Lvl) 8.0 8.5-10.5 [place] 852652-07-27 09:07:00 Test Item Value Reference Range Interpretation Comments Total Protein (test code = Total 5.7 6.4-8.4 Protein) [place] 852652-07-27 09:07:00 Test Item Value Reference Range Interpretation Comments Albumin Lvl (test code = Albumin Lvl) 2.6 3.5-5.0 [place] [address]-07-27 09:07:00 Test Item Value Reference Range Interpretation Comments ALT (test code = ALT) 18 See_Comment [Auto mated message] The system which ge nerated this result transmit lavon reference range : <=65. The reference range was not used to interpr et this result as dionne l/abnormal. [place] 852652-07-27 09:07:00 Test Item Value Reference Range Interpretation Comments AST (test code = AST) 28 See_Comment [Auto mated message] The system which ge nerated this result transmit lavon reference range : <=37. The reference range was not used to interpr et this result as dionne l/abnormal. [place] [address]-07-27 09:07:00 Test Item Value Reference Range Interpretation Comments Alk Phos (test code = Alk Phos) 44 39-136 [place] 852652-07-27 09:07:00 Test Item Value Reference Range Interpretation Comments Bili Total (test code = Bili Total) 1.1 0.2-1.3 [place] 852652-07-27 09:07:00 Test Item Value Reference Range Interpretation Comments AGAP (test code = AGAP) 10.2 10.0-20.0 [place] 852652-07-27 09:07:00 Test Item Value Reference Range Interpretation Comments B/C Ratio (test code = B/C Ratio) 31 1 6-25 [place] 852652-07-27 09:07:00 Test Item Value Reference Range Interpretation Comments Globulin (test code = Globulin) 3.1 2.7-4.2 [place] 852652-07-27 09:07:00 Test Item Value Reference Range Interpretation Comments A/G Ratio (test code = A/G Ratio) 0.8 1 0.7-1.6 [place] 852652-07-27 09:07:00 Test Item Value Reference Range Interpretation Comments eGFR (test code = eGFR) 59 [place] 778932-07-27 09:07:00 Test Item Value Reference Range Interpretation Comments WBC (test code = WBC) 7.2 3.7-10.4 [place] 778932-07-27 09:07:00 Test Item Value Reference Range Interpretation Comments RBC (test code = RBC) 3.06 4.20-5.40 [place] 778932-07-27 09:07:00 Test Item Value Reference Range Interpretation Comments Hgb (test code = Hgb) 7.4 12.0-16.0 [place] [address]-07-27 09:07:00 Test Item Value Reference Range Interpretation Comments Hct (test code = Hct) 22.5 36.0-48.0 [place] 778932-07-27 09:07:00 Test Item Value Reference Range Interpretation Comments MCV (test code = MCV) 73.6 80.0-98.0 [place] [address]-07-27 09:07:00 Test Item Value Reference Range Interpretation Comments MCH (test code = MCH) 24.2 pg 27.0-31.0 [facility] CenterPadyuxrQNTGTMLMOO7705-31-79 09:07:00 Test Item Value Reference Range Interpretation Comments MCHC (test code = MCHC) 32.9 32.0-36.0 [facility] CenterNxhenxkOLRUDILJSN6631-40-42 09:07:00 Test Item Value Reference Range Interpretation Comments RDW (test code = RDW) 20.8 11.5-14.5 [facility] CenterRpkahswQCWTCSRBMB2168-85-67 09:07:00 Test Item Value Reference Range Interpretation Comments Platelet (test code = Platelet) 286 133-450 [facility] CenterZsriwroJFTPXTMEYC3672-83-61 09:07:00 Test Item Value Reference Range Interpretation Comments MPV (test code = MPV) 7.4 7.4-10.4 [facility] CenterKakcpfnHBQXCTQYFC8120-10-31 09:07:00 Test Item Value Reference Range Interpretation Comments Segs (test code = Segs) 73.8 45.0-75.0 [place] 778932-07-27 09:07:00 Test Item Value Reference Range Interpretation Comments Lymphocytes (test code = Lymphocytes) 17.2 20.0-40.0 [facility] CenterCfrnnseOGUQULHFSV3830-20-24 09:07:00 Test Item Value Reference Range Interpretation Comments Monocytes (test code = Monocytes) 8.8 2.0-12.0 [facility] CenterVycouwhQTAHXAFYZM1023-84-73 09:07:00 Test Item Value Reference Range Interpretation Comments Neutrophils # (test code = Neutrophils 5.3 1.5-8.1 #) [facility] CenterIlmklofAWISQNMFKS4058-61-07 09:07:00 Test Item Value Reference Range Interpretation Comments Lymphocytes # (test code = Lymphocytes 1.2 1.0-5.5 #) [place] 778932-07-27 09:07:00 Test Item Value Reference Range Interpretation Comments Monocytes # (test code 0.6 See_Comment [Aut omated message] The = Monocytes #) system which generated this result tra nsmitted reference range : <=0.8. The reference r hugo was not used to int erpret this result as normal/abnormal . [facility] CenterItskhseYQBIGSHAKR4732-72-57 09:07:00 Test Item Value Reference Range Interpretation Comments Microcyte (test code = 1+ *ABN*(06/15/22 Microcyte) 4:07 AM) [place] 852652-07-27 09:07:00 Test Item Value Reference Range Interpretation Comments Glucose Lvl (test code = Glucose Lvl) 108 70-99 [place] 852652-07-27 09:07:00 Test Item Value Reference Range Interpretation Comments BUN (test code = BUN) 29 7-22 [place] 852652-07-27 09:07:00 Test Item Value Reference Range Interpretation Comments Creatinine Lvl (test code = Creatinine 0.94 0.50-1.40 Lvl) [place] 852652-07-27 09:07:00 Test Item Value Reference Range Interpretation Comments Sodium Lvl (test code = Sodium Lvl) 131 135-145 [place] 852652-07-27 09:07:00 Test Item Value Reference Range Interpretation Comments Potassium Lvl (test code = Potassium 3.2 3.5-5.1 Lvl) [place] 852652-07-27 09:07:00 Test Item Value Reference Range Interpretation Comments Chloride Lvl (test code = Chloride Lvl) 93 95-109 [place] 852652-07-27 09:07:00 Test Item Value Reference Range Interpretation Comments CO2 (test code = CO2) 31 24-32 [place] 852652-07-27 09:07:00 Test Item Value Reference Range Interpretation Comments Calcium Lvl (test code = Calcium Lvl) 8.0 8.5-10.5 [place] 852652-07-27 09:07:00 Test Item Value Reference Range Interpretation Comments Total Protein (test code = Total 5.7 6.4-8.4 Protein) [place] 852652-07-27 09:07:00 Test Item Value Reference Range Interpretation Comments Albumin Lvl (test code = Albumin Lvl) 2.6 3.5-5.0 [place] 852652-07-27 09:07:00 Test Item Value Reference Range Interpretation Comments ALT (test code = ALT) 18 See_Comment [Auto mated message] The system which ge nerated this result transmit lavon reference range : <=65. The reference range was not used to interpr et this result as dionne l/abnormal. [place] 852652-07-27 09:07:00 Test Item Value Reference Range Interpretation Comments AST (test code = AST) 28 See_Comment [Auto mated message] The system which ge nerated this result transmit lavon reference range : <=37. The reference range was not used to interpr et this result as dionne l/abnormal. [facility]2022-07-27 09:07:00 Test Item Value Reference Range Interpretation Comments Alk Phos (test code = Alk Phos) 44 39-136 [place] 852652-07-27 09:07:00 Test Item Value Reference Range Interpretation Comments Bili Total (test code = Bili Total) 1.1 0.2-1.3 [place] 852652-07-27 09:07:00 Test Item Value Reference Range Interpretation Comments AGAP (test code = AGAP) 10.2 10.0-20.0 [place] 852652-07-27 09:07:00 Test Item Value Reference Range Interpretation Comments B/C Ratio (test code = B/C Ratio) 31 1 6-25 [place] 852652-07-27 09:07:00 Test Item Value Reference Range Interpretation Comments Globulin (test code = Globulin) 3.1 2.7-4.2 [place] 852652-07-27 09:07:00 Test Item Value Reference Range Interpretation Comments A/G Ratio (test code = A/G Ratio) 0.8 1 0.7-1.6 [place] 852652-07-27 09:07:00 Test Item Value Reference Range Interpretation Comments eGFR (test code = eGFR) 59 [place] 778932-07-27 09:07:00 Test Item Value Reference Range Interpretation Comments WBC (test code = WBC) 7.2 3.7-10.4 [place] [address]-07-27 09:07:00 Test Item Value Reference Range Interpretation Comments RBC (test code = RBC) 3.06 4.20-5.40 [place] [address]-07-27 09:07:00 Test Item Value Reference Range Interpretation Comments Hgb (test code = Hgb) 7.4 12.0-16.0 [place] [address]-07-27 09:07:00 Test Item Value Reference Range Interpretation Comments Hct (test code = Hct) 22.5 36.0-48.0 [place] 778932-07-27 09:07:00 Test Item Value Reference Range Interpretation Comments MCV (test code = MCV) 73.6 80.0-98.0 [place] 778932-07-27 09:07:00 Test Item Value Reference Range Interpretation Comments MCH (test code = MCH) 24.2 pg 27.0-31.0 [place] 778932-07-27 09:07:00 Test Item Value Reference Range Interpretation Comments MCHC (test code = MCHC) 32.9 32.0-36.0 [place] 778932-07-27 09:07:00 Test Item Value Reference Range Interpretation Comments RDW (test code = RDW) 20.8 11.5-14.5 [place] [address]-07-27 09:07:00 Test Item Value Reference Range Interpretation Comments Platelet (test code = Platelet) 286 133-450 [facility] CenterJyckvrcOYHDAABTNX5717-58-56 09:07:00 Test Item Value Reference Range Interpretation Comments MPV (test code = MPV) 7.4 7.4-10.4 [place] 778932-07-27 09:07:00 Test Item Value Reference Range Interpretation Comments Segs (test code = Segs) 73.8 45.0-75.0 [place] 778932-07-27 09:07:00 Test Item Value Reference Range Interpretation Comments Lymphocytes (test code = Lymphocytes) 17.2 20.0-40.0 [place] 778932-07-27 09:07:00 Test Item Value Reference Range Interpretation Comments Monocytes (test code = Monocytes) 8.8 2.0-12.0 [place] 778932-07-27 09:07:00 Test Item Value Reference Range Interpretation Comments Neutrophils # (test code = Neutrophils 5.3 1.5-8.1 #) [place] 778932-07-27 09:07:00 Test Item Value Reference Range Interpretation Comments Lymphocytes # (test code = Lymphocytes 1.2 1.0-5.5 #) [place] 778932-07-27 09:07:00 Test Item Value Reference Range Interpretation Comments Monocytes # (test code 0.6 See_Comment [Aut omated message] The = Monocytes #) system which generated this result tra nsmitted reference range : <=0.8. The reference r hugo was not used to int erpret this result as normal/abnormal . [place] 778932-07-27 09:07:00 Test Item Value Reference Range Interpretation Comments Microcyte (test code = 1+ *ABN*(06/15/22 Microcyte) 4:07 AM) [place] 852652-07-26 18:34:00 Test Item Value Reference Range Interpretation Comments Glucose Lvl (test code = Glucose Lvl) 110 70-99 [place] 852652-07-26 18:34:00 Test Item Value Reference Range Interpretation Comments BUN (test code = BUN) 28 06-10 [place] 852652-07-26 18:34:00 Test Item Value Reference Range Interpretation Comments Creatinine Lvl (test code = Creatinine 1.05 0.50-1.40 Lvl) [place] 852652-07-26 18:34:00 Test Item Value Reference Range Interpretation Comments Sodium Lvl (test code = Sodium Lvl) 132 135-145 [place] 852652-07-26 18:34:00 Test Item Value Reference Range Interpretation Comments Potassium Lvl (test code = Potassium 4.4 3.5-5.1 Lvl) [place] 852652-07-26 18:34:00 Test Item Value Reference Range Interpretation Comments Chloride Lvl (test code = Chloride Lvl) 96 95-109 [place] 852652-07-26 18:34:00 Test Item Value Reference Range Interpretation Comments CO2 (test code = CO2) 27 24-32 [place] 852652-07-26 18:34:00 Test Item Value Reference Range Interpretation Comments Calcium Lvl (test code = Calcium Lvl) 8.5 8.5-10.5 [place] 852652-07-26 18:34:00 Test Item Value Reference Range Interpretation Comments AGAP (test code = AGAP) 13.4 10.0-20.0 [place] 852652-07-26 18:34:00 Test Item Value Reference Range Interpretation Comments eGFR (test code = eGFR) 51 [place] 778932-07-26 18:34:00 Test Item Value Reference Range Interpretation Comments WBC (test code = WBC) 13.5 3.7-10.4 [place] 778932-07-26 18:34:00 Test Item Value Reference Range Interpretation Comments RBC (test code = RBC) 3.63 4.20-5.40 [place] 778932-07-26 18:34:00 Test Item Value Reference Range Interpretation Comments Hgb (test code = Hgb) 8.7 12.0-16.0 [place] 778932-07-26 18:34:00 Test Item Value Reference Range Interpretation Comments Hct (test code = Hct) 28.2 36.0-48.0 [place] 778932-07-26 18:34:00 Test Item Value Reference Range Interpretation Comments MCV (test code = MCV) 77.5 80.0-98.0 [place] 778932-07-26 18:34:00 Test Item Value Reference Range Interpretation Comments MCH (test code = MCH) 24.0 pg 27.0-31.0 [place] 778932-07-26 18:34:00 Test Item Value Reference Range Interpretation Comments MCHC (test code = MCHC) 30.9 32.0-36.0 [facility]-68 18:34:00 Test Item Value Reference Range Interpretation Comments RDW (test code = RDW) 21.2 11.5-14.5 [place] 778932-07-26 18:34:00 Test Item Value Reference Range Interpretation Comments Platelet (test code = Platelet) 324 133-450 [facility]DhfhjtkRWAYIPCHEV0149-71-65 18:34:00 Test Item Value Reference Range Interpretation Comments MPV (test code = MPV) 7.6 7.4-10.4 [place] 778932-07-26 18:34:00 Test Item Value Reference Range Interpretation Comments Plt Morph (test code = Normal (06/14/22 1:34 Plt Morph) PM) [place] 778932-07-26 18:34:00 Test Item Value Reference Range Interpretation Comments Segs (test code = Segs) 89.0 45.0-75.0 [facility]WzhgdpoIHEFFGKJSX9650-18-70 18:34:00 Test Item Value Reference Range Interpretation Comments Bands (test code = 3.0 See_Comment [Automat ed message] The Bands) system which ge nerated this result transmit lavon reference range : <=11.0. The reference r hugo was not used to interpr et this result as dionne l/abnormal. [place] 778932-07-26 18:34:00 Test Item Value Reference Range Interpretation Comments Lymphocytes (test code = Lymphocytes) 8.0 20.0-40.0 [place] [address]-07-26 18:34:00 Test Item Value Reference Range Interpretation Comments Monocytes (test code = Monocytes) 0.0 2.0-12.0 [place] [address]-07-26 18:34:00 Test Item Value Reference Range Interpretation Comments Neutrophils # (test code = Neutrophils 12.4 1.5-8.1 #) [address]07-26 18:34:00 Test Item Value Reference Range Interpretation Comments Lymphocytes # (test code = Lymphocytes 1.1 1.0-5.5 #) [place] [address]-07-26 18:34:00 Test Item Value Reference Range Interpretation Comments Monocytes # (test code 0.0 See_Comment [Aut omated message] The = Monocytes #) system which generated this result tra nsmitted reference range : <=0.8. The reference r hugo was not used to int erpret this result as normal/abnormal . [place] 778932-07-26 18:34:00 Test Item Value Reference Range Interpretation Comments Hypochrom (test code = 1+ (06/14/22 1:34 PM) Hypochrom) [place] 852652-07-26 18:34:00 Test Item Value Reference Range Interpretation Comments Glucose Lvl (test code = Glucose Lvl) 110 70-99 [place] 852652-07-26 18:34:00 Test Item Value Reference Range Interpretation Comments BUN (test code = BUN) 28 7-22 [place] 852652-07-26 18:34:00 Test Item Value Reference Range Interpretation Comments Creatinine Lvl (test code = Creatinine 1.05 0.50-1.40 Lvl) [place] 852652-07-26 18:34:00 Test Item Value Reference Range Interpretation Comments Sodium Lvl (test code = Sodium Lvl) 132 135-145 [place] 852652-07-26 18:34:00 Test Item Value Reference Range Interpretation Comments Potassium Lvl (test code = Potassium 4.4 3.5-5.1 Lvl) [place] 852652-07-26 18:34:00 Test Item Value Reference Range Interpretation Comments Chloride Lvl (test code = Chloride Lvl) 96 95-109 [place] 852652-07-26 18:34:00 Test Item Value Reference Range Interpretation Comments CO2 (test code = CO2) 27 24-32 [place] 852652-07-26 18:34:00 Test Item Value Reference Range Interpretation Comments Calcium Lvl (test code = Calcium Lvl) 8.5 8.5-10.5 [place] 852652-07-26 18:34:00 Test Item Value Reference Range Interpretation Comments AGAP (test code = AGAP) 13.4 10.0-20.0 [place] 852652-07-26 18:34:00 Test Item Value Reference Range Interpretation Comments eGFR (test code = eGFR) 51 [place] 778932-07-26 18:34:00 Test Item Value Reference Range Interpretation Comments WBC (test code = WBC) 13.5 3.7-10.4 [place] 778932-07-26 18:34:00 Test Item Value Reference Range Interpretation Comments RBC (test code = RBC) 3.63 4.20-5.40 [place] 778932-07-26 18:34:00 Test Item Value Reference Range Interpretation Comments Hgb (test code = Hgb) 8.7 12.0-16.0 [place] [address]-07-26 18:34:00 Test Item Value Reference Range Interpretation Comments Hct (test code = Hct) 28.2 36.0-48.0 [place] [address]-07-26 18:34:00 Test Item Value Reference Range Interpretation Comments MCV (test code = MCV) 77.5 80.0-98.0 [place] [address]-07-26 18:34:00 Test Item Value Reference Range Interpretation Comments MCH (test code = MCH) 24.0 pg 27.0-31.0 [place] 778932-07-26 18:34:00 Test Item Value Reference Range Interpretation Comments MCHC (test code = MCHC) 30.9 32.0-36.0 [place] [address]-07-26 18:34:00 Test Item Value Reference Range Interpretation Comments RDW (test code = RDW) 21.2 11.5-14.5 [place] [address]-07-26 18:34:00 Test Item Value Reference Range Interpretation Comments Platelet (test code = Platelet) 324 133-450 [place] 778932-07-26 18:34:00 Test Item Value Reference Range Interpretation Comments MPV (test code = MPV) 7.6 7.4-10.4 [place] [address]-07-26 18:34:00 Test Item Value Reference Range Interpretation Comments Plt Morph (test code = Normal (06/14/22 1:34 Plt Morph) PM) [address]07-26 18:34:00 Test Item Value Reference Range Interpretation Comments Segs (test code = Segs) 89.0 45.0-75.0 [place] [address]-07-26 18:34:00 Test Item Value Reference Range Interpretation Comments Bands (test code = 3.0 See_Comment [Automat ed message] The Bands) system which ge nerated this result transmit lavon reference range : <=11.0. The reference r hugo was not used to interpr et this result as dionne l/abnormal. [place] 778932-07-26 18:34:00 Test Item Value Reference Range Interpretation Comments Lymphocytes (test code = Lymphocytes) 8.0 20.0-40.0 [place] [address]-07-26 18:34:00 Test Item Value Reference Range Interpretation Comments Monocytes (test code = Monocytes) 0.0 2.0-12.0 [place] [address]-07-26 18:34:00 Test Item Value Reference Range Interpretation Comments Neutrophils # (test code = Neutrophils 12.4 1.5-8.1 #) [place] [address]-07-26 18:34:00 Test Item Value Reference Range Interpretation Comments Lymphocytes # (test code = Lymphocytes 1.1 1.0-5.5 #) [place] [address]-07-26 18:34:00 Test Item Value Reference Range Interpretation Comments Monocytes # (test code 0.0 See_Comment [Aut omated message] The = Monocytes #) system which generated this result tra nsmitted reference range : <=0.8. The reference r hugo was not used to int erpret this result as normal/abnormal . [place] 778932-07-26 18:34:00 Test Item Value Reference Range Interpretation Comments Hypochrom (test code = 1+ (06/14/22 1:34 PM) Hypochrom) [place] [address]-07-26 18:34:00 Test Item Value Reference Range Interpretation Comments Glucose Lvl (test code = Glucose Lvl) 110 70-99 [place] [address]-07-26 18:34:00 Test Item Value Reference Range Interpretation Comments BUN (test code = BUN) 28 - [place] 852652-07-26 18:34:00 Test Item Value Reference Range Interpretation Comments Creatinine Lvl (test code = Creatinine 1.05 0.50-1.40 Lvl) [place] 852652-07-26 18:34:00 Test Item Value Reference Range Interpretation Comments Sodium Lvl (test code = Sodium Lvl) 132 135-145 [place] 852652-07-26 18:34:00 Test Item Value Reference Range Interpretation Comments Potassium Lvl (test code = Potassium 4.4 3.5-5.1 Lvl) [place] 852652-07-26 18:34:00 Test Item Value Reference Range Interpretation Comments Chloride Lvl (test code = Chloride Lvl) 96 95-109 [place] 852652-07-26 18:34:00 Test Item Value Reference Range Interpretation Comments CO2 (test code = CO2) 27 24-32 [place] 852652-07-26 18:34:00 Test Item Value Reference Range Interpretation Comments Calcium Lvl (test code = Calcium Lvl) 8.5 8.5-10.5 [place] 852652-07-26 18:34:00 Test Item Value Reference Range Interpretation Comments AGAP (test code = AGAP) 13.4 10.0-20.0 [place] 852652-07-26 18:34:00 Test Item Value Reference Range Interpretation Comments eGFR (test code = eGFR) 51 [place] 778932-07-26 18:34:00 Test Item Value Reference Range Interpretation Comments WBC (test code = WBC) 13.5 3.7-10.4 [place] 778932-07-26 18:34:00 Test Item Value Reference Range Interpretation Comments RBC (test code = RBC) 3.63 4.20-5.40 [place] 778932-07-26 18:34:00 Test Item Value Reference Range Interpretation Comments Hgb (test code = Hgb) 8.7 12.0-16.0 [place] 778932-07-26 18:34:00 Test Item Value Reference Range Interpretation Comments Hct (test code = Hct) 28.2 36.0-48.0 [place] 778932-07-26 18:34:00 Test Item Value Reference Range Interpretation Comments MCV (test code = MCV) 77.5 80.0-98.0 [place] 778932-07-26 18:34:00 Test Item Value Reference Range Interpretation Comments MCH (test code = MCH) 24.0 pg 27.0-31.0 [place] 778932-07-26 18:34:00 Test Item Value Reference Range Interpretation Comments MCHC (test code = MCHC) 30.9 32.0-36.0 [facility]csbqtcQNOFMWOYWA9065-06-12 18:34:00 Test Item Value Reference Range Interpretation Comments RDW (test code = RDW) 21.2 11.5-14.5 [place] 778932-07-26 18:34:00 Test Item Value Reference Range Interpretation Comments Platelet (test code = Platelet) 324 133-450 [facility] CenterUktlzrqZTWDWOIXNU9489-12-92 18:34:00 Test Item Value Reference Range Interpretation Comments MPV (test code = MPV) 7.6 7.4-10.4 [place] 778932-07-26 18:34:00 Test Item Value Reference Range Interpretation Comments Plt Morph (test code = Normal (06/14/22 1:34 Plt Morph) PM) [place] 778932-07-26 18:34:00 Test Item Value Reference Range Interpretation Comments Segs (test code = Segs) 89.0 45.0-75.0 [facility] CenterQcpdheiCXOEIUSTJR9504-76-49 18:34:00 Test Item Value Reference Range Interpretation Comments Bands (test code = 3.0 See_Comment [Automat ed message] The Bands) system which ge nerated this result transmit lavon reference range : <=11.0. The reference r hugo was not used to interpr et this result as dionne l/abnormal. [place] 778932-07-26 18:34:00 Test Item Value Reference Range Interpretation Comments Lymphocytes (test code = Lymphocytes) 8.0 20.0-40.0 [place] [address]-07-26 18:34:00 Test Item Value Reference Range Interpretation Comments Monocytes (test code = Monocytes) 0.0 2.0-12.0 [place] [address]-07-26 18:34:00 Test Item Value Reference Range Interpretation Comments Neutrophils # (test code = Neutrophils 12.4 1.5-8.1 #) [address]07-26 18:34:00 Test Item Value Reference Range Interpretation Comments Lymphocytes # (test code = Lymphocytes 1.1 1.0-5.5 #) [place] [address]-07-26 18:34:00 Test Item Value Reference Range Interpretation Comments Monocytes # (test code 0.0 See_Comment [Aut omated message] The = Monocytes #) system which generated this result tra nsmitted reference range : <=0.8. The reference r hugo was not used to int erpret this result as normal/abnormal . [place] 778932-07-26 18:34:00 Test Item Value Reference Range Interpretation Comments Hypochrom (test code = 1+ (06/14/22 1:34 PM) Hypochrom) [place] 852652-07-26 18:34:00 Test Item Value Reference Range Interpretation Comments Glucose Lvl (test code = Glucose Lvl) 110 70-99 [place] 852652-07-26 18:34:00 Test Item Value Reference Range Interpretation Comments BUN (test code = BUN) 28 7-22 [place] 852652-07-26 18:34:00 Test Item Value Reference Range Interpretation Comments Creatinine Lvl (test code = Creatinine 1.05 0.50-1.40 Lvl) [place] 852652-07-26 18:34:00 Test Item Value Reference Range Interpretation Comments Sodium Lvl (test code = Sodium Lvl) 132 135-145 [place] 852652-07-26 18:34:00 Test Item Value Reference Range Interpretation Comments Potassium Lvl (test code = Potassium 4.4 3.5-5.1 Lvl) [place] 852652-07-26 18:34:00 Test Item Value Reference Range Interpretation Comments Chloride Lvl (test code = Chloride Lvl) 96 95-109 [place] 852652-07-26 18:34:00 Test Item Value Reference Range Interpretation Comments CO2 (test code = CO2) 27 24-32 [place] 852652-07-26 18:34:00 Test Item Value Reference Range Interpretation Comments Calcium Lvl (test code = Calcium Lvl) 8.5 8.5-10.5 [place] 852652-07-26 18:34:00 Test Item Value Reference Range Interpretation Comments AGAP (test code = AGAP) 13.4 10.0-20.0 [place] 852652-07-26 18:34:00 Test Item Value Reference Range Interpretation Comments eGFR (test code = eGFR) 51 [place] 778932-07-26 18:34:00 Test Item Value Reference Range Interpretation Comments WBC (test code = WBC) 13.5 3.7-10.4 [place] 778932-07-26 18:34:00 Test Item Value Reference Range Interpretation Comments RBC (test code = RBC) 3.63 4.20-5.40 [place] 778932-07-26 18:34:00 Test Item Value Reference Range Interpretation Comments Hgb (test code = Hgb) 8.7 12.0-16.0 [place] [address]-07-26 18:34:00 Test Item Value Reference Range Interpretation Comments Hct (test code = Hct) 28.2 36.0-48.0 [place] [address]-07-26 18:34:00 Test Item Value Reference Range Interpretation Comments MCV (test code = MCV) 77.5 80.0-98.0 [place] [address]-07-26 18:34:00 Test Item Value Reference Range Interpretation Comments MCH (test code = MCH) 24.0 pg 27.0-31.0 [place] 778932-07-26 18:34:00 Test Item Value Reference Range Interpretation Comments MCHC (test code = MCHC) 30.9 32.0-36.0 [place] [address]-07-26 18:34:00 Test Item Value Reference Range Interpretation Comments RDW (test code = RDW) 21.2 11.5-14.5 [place] [address]-07-26 18:34:00 Test Item Value Reference Range Interpretation Comments Platelet (test code = Platelet) 324 133-450 [place] 778932-07-26 18:34:00 Test Item Value Reference Range Interpretation Comments MPV (test code = MPV) 7.6 7.4-10.4 [place] [address]-07-26 18:34:00 Test Item Value Reference Range Interpretation Comments Plt Morph (test code = Normal (06/14/22 1:34 Plt Morph) PM) [address]07-26 18:34:00 Test Item Value Reference Range Interpretation Comments Segs (test code = Segs) 89.0 45.0-75.0 [place] [address]-07-26 18:34:00 Test Item Value Reference Range Interpretation Comments Bands (test code = 3.0 See_Comment [Automat ed message] The Bands) system which ge nerated this result transmit lavon reference range : <=11.0. The reference r hugo was not used to interpr et this result as dionne l/abnormal. [place] 778932-07-26 18:34:00 Test Item Value Reference Range Interpretation Comments Lymphocytes (test code = Lymphocytes) 8.0 20.0-40.0 [place] [address]-07-26 18:34:00 Test Item Value Reference Range Interpretation Comments Monocytes (test code = Monocytes) 0.0 2.0-12.0 [place] [address]-07-26 18:34:00 Test Item Value Reference Range Interpretation Comments Neutrophils # (test code = Neutrophils 12.4 1.5-8.1 #) [place] [address]-07-26 18:34:00 Test Item Value Reference Range Interpretation Comments Lymphocytes # (test code = Lymphocytes 1.1 1.0-5.5 #) [place] [address]-07-26 18:34:00 Test Item Value Reference Range Interpretation Comments Monocytes # (test code 0.0 See_Comment [Aut omated message] The = Monocytes #) system which generated this result tra nsmitted reference range : <=0.8. The reference r hugo was not used to int erpret this result as normal/abnormal . [place] 778932-07-26 18:34:00 Test Item Value Reference Range Interpretation Comments Hypochrom (test code = 1+ (06/14/22 1:34 PM) Hypochrom) [place] [address]-07-26 18:34:00 Test Item Value Reference Range Interpretation Comments Glucose Lvl (test code = Glucose Lvl) 110 70-99 [place] [address]-07-26 18:34:00 Test Item Value Reference Range Interpretation Comments BUN (test code = BUN) 28 - [place] 852652-07-26 18:34:00 Test Item Value Reference Range Interpretation Comments Creatinine Lvl (test code = Creatinine 1.05 0.50-1.40 Lvl) [place] 852652-07-26 18:34:00 Test Item Value Reference Range Interpretation Comments Sodium Lvl (test code = Sodium Lvl) 132 135-145 [place] 852652-07-26 18:34:00 Test Item Value Reference Range Interpretation Comments Potassium Lvl (test code = Potassium 4.4 3.5-5.1 Lvl) [place] 852652-07-26 18:34:00 Test Item Value Reference Range Interpretation Comments Chloride Lvl (test code = Chloride Lvl) 96 95-109 [place] 852652-07-26 18:34:00 Test Item Value Reference Range Interpretation Comments CO2 (test code = CO2) 27 24-32 [place] 852652-07-26 18:34:00 Test Item Value Reference Range Interpretation Comments Calcium Lvl (test code = Calcium Lvl) 8.5 8.5-10.5 [place] 852652-07-26 18:34:00 Test Item Value Reference Range Interpretation Comments AGAP (test code = AGAP) 13.4 10.0-20.0 [place] 852652-07-26 18:34:00 Test Item Value Reference Range Interpretation Comments eGFR (test code = eGFR) 51 [place] 778932-07-26 18:34:00 Test Item Value Reference Range Interpretation Comments WBC (test code = WBC) 13.5 3.7-10.4 [place] 778932-07-26 18:34:00 Test Item Value Reference Range Interpretation Comments RBC (test code = RBC) 3.63 4.20-5.40 [place] 778932-07-26 18:34:00 Test Item Value Reference Range Interpretation Comments Hgb (test code = Hgb) 8.7 12.0-16.0 [place] 778932-07-26 18:34:00 Test Item Value Reference Range Interpretation Comments Hct (test code = Hct) 28.2 36.0-48.0 [place] 778932-07-26 18:34:00 Test Item Value Reference Range Interpretation Comments MCV (test code = MCV) 77.5 80.0-98.0 [place] 778932-07-26 18:34:00 Test Item Value Reference Range Interpretation Comments MCH (test code = MCH) 24.0 pg 27.0-31.0 [place] 778932-07-26 18:34:00 Test Item Value Reference Range Interpretation Comments MCHC (test code = MCHC) 30.9 32.0-36.0 [facility]ksynlwJXEWBLDHZA2516-64-29 18:34:00 Test Item Value Reference Range Interpretation Comments RDW (test code = RDW) 21.2 11.5-14.5 [place] 778932-07-26 18:34:00 Test Item Value Reference Range Interpretation Comments Platelet (test code = Platelet) 324 133-450 [facility] CenterCgyeicwZDGYYVZOZB0569-47-64 18:34:00 Test Item Value Reference Range Interpretation Comments MPV (test code = MPV) 7.6 7.4-10.4 [place] 778932-07-26 18:34:00 Test Item Value Reference Range Interpretation Comments Plt Morph (test code = Normal (06/14/22 1:34 Plt Morph) PM) [place] 778932-07-26 18:34:00 Test Item Value Reference Range Interpretation Comments Segs (test code = Segs) 89.0 45.0-75.0 [facility] CenterUsnewucQRXKRWDGMT2012-64-90 18:34:00 Test Item Value Reference Range Interpretation Comments Bands (test code = 3.0 See_Comment [Automat ed message] The Bands) system which ge nerated this result transmit lavon reference range : <=11.0. The reference r hugo was not used to interpr et this result as dionne l/abnormal. [place] 778932-07-26 18:34:00 Test Item Value Reference Range Interpretation Comments Lymphocytes (test code = Lymphocytes) 8.0 20.0-40.0 [place] [address]-07-26 18:34:00 Test Item Value Reference Range Interpretation Comments Monocytes (test code = Monocytes) 0.0 2.0-12.0 [place] [address]-07-26 18:34:00 Test Item Value Reference Range Interpretation Comments Neutrophils # (test code = Neutrophils 12.4 1.5-8.1 #) [address]07-26 18:34:00 Test Item Value Reference Range Interpretation Comments Lymphocytes # (test code = Lymphocytes 1.1 1.0-5.5 #) [place] [address]-07-26 18:34:00 Test Item Value Reference Range Interpretation Comments Monocytes # (test code 0.0 See_Comment [Aut omated message] The = Monocytes #) system which generated this result tra nsmitted reference range : <=0.8. The reference r hugo was not used to int erpret this result as normal/abnormal . [place] 778932-07-26 18:34:00 Test Item Value Reference Range Interpretation Comments Hypochrom (test code = 1+ (06/14/22 1:34 PM) Hypochrom) [place] 852652-07-26 18:34:00 Test Item Value Reference Range Interpretation Comments Glucose Lvl (test code = Glucose Lvl) 110 70-99 [place] 852652-07-26 18:34:00 Test Item Value Reference Range Interpretation Comments BUN (test code = BUN) 28 7-22 [place] 852652-07-26 18:34:00 Test Item Value Reference Range Interpretation Comments Creatinine Lvl (test code = Creatinine 1.05 0.50-1.40 Lvl) [place] 852652-07-26 18:34:00 Test Item Value Reference Range Interpretation Comments Sodium Lvl (test code = Sodium Lvl) 132 135-145 [place] 852652-07-26 18:34:00 Test Item Value Reference Range Interpretation Comments Potassium Lvl (test code = Potassium 4.4 3.5-5.1 Lvl) [place] 852652-07-26 18:34:00 Test Item Value Reference Range Interpretation Comments Chloride Lvl (test code = Chloride Lvl) 96 95-109 [place] 852652-07-26 18:34:00 Test Item Value Reference Range Interpretation Comments CO2 (test code = CO2) 27 24-32 [place] 852652-07-26 18:34:00 Test Item Value Reference Range Interpretation Comments Calcium Lvl (test code = Calcium Lvl) 8.5 8.5-10.5 [place] 852652-07-26 18:34:00 Test Item Value Reference Range Interpretation Comments AGAP (test code = AGAP) 13.4 10.0-20.0 [place] 852652-07-26 18:34:00 Test Item Value Reference Range Interpretation Comments eGFR (test code = eGFR) 51 [place] 778932-07-26 18:34:00 Test Item Value Reference Range Interpretation Comments WBC (test code = WBC) 13.5 3.7-10.4 [place] 778932-07-26 18:34:00 Test Item Value Reference Range Interpretation Comments RBC (test code = RBC) 3.63 4.20-5.40 [place] 778932-07-26 18:34:00 Test Item Value Reference Range Interpretation Comments Hgb (test code = Hgb) 8.7 12.0-16.0 [place] [address]-07-26 18:34:00 Test Item Value Reference Range Interpretation Comments Hct (test code = Hct) 28.2 36.0-48.0 [place] [address]-07-26 18:34:00 Test Item Value Reference Range Interpretation Comments MCV (test code = MCV) 77.5 80.0-98.0 [place] [address]-07-26 18:34:00 Test Item Value Reference Range Interpretation Comments MCH (test code = MCH) 24.0 pg 27.0-31.0 [place] 778932-07-26 18:34:00 Test Item Value Reference Range Interpretation Comments MCHC (test code = MCHC) 30.9 32.0-36.0 [place] [address]-07-26 18:34:00 Test Item Value Reference Range Interpretation Comments RDW (test code = RDW) 21.2 11.5-14.5 [place] [address]-07-26 18:34:00 Test Item Value Reference Range Interpretation Comments Platelet (test code = Platelet) 324 133-450 [place] 778932-07-26 18:34:00 Test Item Value Reference Range Interpretation Comments MPV (test code = MPV) 7.6 7.4-10.4 [place] [address]-07-26 18:34:00 Test Item Value Reference Range Interpretation Comments Plt Morph (test code = Normal (06/14/22 1:34 Plt Morph) PM) [address]07-26 18:34:00 Test Item Value Reference Range Interpretation Comments Segs (test code = Segs) 89.0 45.0-75.0 [place] [address]-07-26 18:34:00 Test Item Value Reference Range Interpretation Comments Bands (test code = 3.0 See_Comment [Automat ed message] The Bands) system which ge nerated this result transmit lavon reference range : <=11.0. The reference r hugo was not used to interpr et this result as dionne l/abnormal. [place] 778932-07-26 18:34:00 Test Item Value Reference Range Interpretation Comments Lymphocytes (test code = Lymphocytes) 8.0 20.0-40.0 [place] [address]-07-26 18:34:00 Test Item Value Reference Range Interpretation Comments Monocytes (test code = Monocytes) 0.0 2.0-12.0 [place] [address]-07-26 18:34:00 Test Item Value Reference Range Interpretation Comments Neutrophils # (test code = Neutrophils 12.4 1.5-8.1 #) [place] [address]-07-26 18:34:00 Test Item Value Reference Range Interpretation Comments Lymphocytes # (test code = Lymphocytes 1.1 1.0-5.5 #) [place] [address]-07-26 18:34:00 Test Item Value Reference Range Interpretation Comments Monocytes # (test code 0.0 See_Comment [Aut omated message] The = Monocytes #) system which generated this result tra nsmitted reference range : <=0.8. The reference r hugo was not used to int erpret this result as normal/abnormal . [place] 778932-07-26 18:34:00 Test Item Value Reference Range Interpretation Comments Hypochrom (test code = 1+ (06/14/22 1:34 PM) Hypochrom) [place] [address]-07-26 18:34:00 Test Item Value Reference Range Interpretation Comments Glucose Lvl (test code = Glucose Lvl) 110 70-99 [place] [address]-07-26 18:34:00 Test Item Value Reference Range Interpretation Comments BUN (test code = BUN) 28 - [place] 852652-07-26 18:34:00 Test Item Value Reference Range Interpretation Comments Creatinine Lvl (test code = Creatinine 1.05 0.50-1.40 Lvl) [place] 852652-07-26 18:34:00 Test Item Value Reference Range Interpretation Comments Sodium Lvl (test code = Sodium Lvl) 132 135-145 [place] 852652-07-26 18:34:00 Test Item Value Reference Range Interpretation Comments Potassium Lvl (test code = Potassium 4.4 3.5-5.1 Lvl) [place] 852652-07-26 18:34:00 Test Item Value Reference Range Interpretation Comments Chloride Lvl (test code = Chloride Lvl) 96 95-109 [place] 852652-07-26 18:34:00 Test Item Value Reference Range Interpretation Comments CO2 (test code = CO2) 27 24-32 [place] 852652-07-26 18:34:00 Test Item Value Reference Range Interpretation Comments Calcium Lvl (test code = Calcium Lvl) 8.5 8.5-10.5 [place] 852652-07-26 18:34:00 Test Item Value Reference Range Interpretation Comments AGAP (test code = AGAP) 13.4 10.0-20.0 [place] 852652-07-26 18:34:00 Test Item Value Reference Range Interpretation Comments eGFR (test code = eGFR) 51 [place] 778932-07-26 18:34:00 Test Item Value Reference Range Interpretation Comments WBC (test code = WBC) 13.5 3.7-10.4 [place] 778932-07-26 18:34:00 Test Item Value Reference Range Interpretation Comments RBC (test code = RBC) 3.63 4.20-5.40 [place] 778932-07-26 18:34:00 Test Item Value Reference Range Interpretation Comments Hgb (test code = Hgb) 8.7 12.0-16.0 [place] 778932-07-26 18:34:00 Test Item Value Reference Range Interpretation Comments Hct (test code = Hct) 28.2 36.0-48.0 [place] 778932-07-26 18:34:00 Test Item Value Reference Range Interpretation Comments MCV (test code = MCV) 77.5 80.0-98.0 [place] 778932-07-26 18:34:00 Test Item Value Reference Range Interpretation Comments MCH (test code = MCH) 24.0 pg 27.0-31.0 [place] 778932-07-26 18:34:00 Test Item Value Reference Range Interpretation Comments MCHC (test code = MCHC) 30.9 32.0-36.0 [facility] 18:34:00 Test Item Value Reference Range Interpretation Comments RDW (test code = RDW) 21.2 11.5-14.5 [place] 778932-07-26 18:34:00 Test Item Value Reference Range Interpretation Comments Platelet (test code = Platelet) 324 133-450 [facility]iwjbibLUHOKVJWRQ1898-01-74 18:34:00 Test Item Value Reference Range Interpretation Comments MPV (test code = MPV) 7.6 7.4-10.4 [place] 778932-07-26 18:34:00 Test Item Value Reference Range Interpretation Comments Plt Morph (test code = Normal (06/14/22 1:34 Plt Morph) PM) [place] 778932-07-26 18:34:00 Test Item Value Reference Range Interpretation Comments Segs (test code = Segs) 89.0 45.0-75.0 [facility]YetmifdNHWFZKDUYW1536-42-44 18:34:00 Test Item Value Reference Range Interpretation Comments Bands (test code = 3.0 See_Comment [Automat ed message] The Bands) system which ge nerated this result transmit lavon reference range : <=11.0. The reference r hugo was not used to interpr et this result as dionne l/abnormal. [place] 778932-07-26 18:34:00 Test Item Value Reference Range Interpretation Comments Lymphocytes (test code = Lymphocytes) 8.0 20.0-40.0 [place] [address]-07-26 18:34:00 Test Item Value Reference Range Interpretation Comments Monocytes (test code = Monocytes) 0.0 2.0-12.0 [place] [address]-07-26 18:34:00 Test Item Value Reference Range Interpretation Comments Neutrophils # (test code = Neutrophils 12.4 1.5-8.1 #) [address]07-26 18:34:00 Test Item Value Reference Range Interpretation Comments Lymphocytes # (test code = Lymphocytes 1.1 1.0-5.5 #) [place] [address]-07-26 18:34:00 Test Item Value Reference Range Interpretation Comments Monocytes # (test code 0.0 See_Comment [Aut omated message] The = Monocytes #) system which generated this result tra nsmitted reference range : <=0.8. The reference r hugo was not used to int erpret this result as normal/abnormal . [place] 778932-07-26 18:34:00 Test Item Value Reference Range Interpretation Comments Hypochrom (test code = 1+ (06/14/22 1:34 PM) Hypochrom) [place] 852652-07-26 18:34:00 Test Item Value Reference Range Interpretation Comments Glucose Lvl (test code = Glucose Lvl) 110 70-99 [place] 852652-07-26 18:34:00 Test Item Value Reference Range Interpretation Comments BUN (test code = BUN) 28 7-22 [place] 852652-07-26 18:34:00 Test Item Value Reference Range Interpretation Comments Creatinine Lvl (test code = Creatinine 1.05 0.50-1.40 Lvl) [place] 852652-07-26 18:34:00 Test Item Value Reference Range Interpretation Comments Sodium Lvl (test code = Sodium Lvl) 132 135-145 [place] 852652-07-26 18:34:00 Test Item Value Reference Range Interpretation Comments Potassium Lvl (test code = Potassium 4.4 3.5-5.1 Lvl) [place] 852652-07-26 18:34:00 Test Item Value Reference Range Interpretation Comments Chloride Lvl (test code = Chloride Lvl) 96 95-109 [place] 852652-07-26 18:34:00 Test Item Value Reference Range Interpretation Comments CO2 (test code = CO2) 27 24-32 [place] 852652-07-26 18:34:00 Test Item Value Reference Range Interpretation Comments Calcium Lvl (test code = Calcium Lvl) 8.5 8.5-10.5 [place] 852652-07-26 18:34:00 Test Item Value Reference Range Interpretation Comments AGAP (test code = AGAP) 13.4 10.0-20.0 [place] 852652-07-26 18:34:00 Test Item Value Reference Range Interpretation Comments eGFR (test code = eGFR) 51 [place] 778932-07-26 18:34:00 Test Item Value Reference Range Interpretation Comments WBC (test code = WBC) 13.5 3.7-10.4 [place] 778932-07-26 18:34:00 Test Item Value Reference Range Interpretation Comments RBC (test code = RBC) 3.63 4.20-5.40 [place] 778932-07-26 18:34:00 Test Item Value Reference Range Interpretation Comments Hgb (test code = Hgb) 8.7 12.0-16.0 [place] [address]-07-26 18:34:00 Test Item Value Reference Range Interpretation Comments Hct (test code = Hct) 28.2 36.0-48.0 [place] [address]-07-26 18:34:00 Test Item Value Reference Range Interpretation Comments MCV (test code = MCV) 77.5 80.0-98.0 [place] [address]-07-26 18:34:00 Test Item Value Reference Range Interpretation Comments MCH (test code = MCH) 24.0 pg 27.0-31.0 [place] 778932-07-26 18:34:00 Test Item Value Reference Range Interpretation Comments MCHC (test code = MCHC) 30.9 32.0-36.0 [place] [address]-07-26 18:34:00 Test Item Value Reference Range Interpretation Comments RDW (test code = RDW) 21.2 11.5-14.5 [place] [address]-07-26 18:34:00 Test Item Value Reference Range Interpretation Comments Platelet (test code = Platelet) 324 133-450 [place] 778932-07-26 18:34:00 Test Item Value Reference Range Interpretation Comments MPV (test code = MPV) 7.6 7.4-10.4 [place] [address]-07-26 18:34:00 Test Item Value Reference Range Interpretation Comments Plt Morph (test code = Normal (06/14/22 1:34 Plt Morph) PM) [address]07-26 18:34:00 Test Item Value Reference Range Interpretation Comments Segs (test code = Segs) 89.0 45.0-75.0 [place] [address]-07-26 18:34:00 Test Item Value Reference Range Interpretation Comments Bands (test code = 3.0 See_Comment [Automat ed message] The Bands) system which ge nerated this result transmit lavon reference range : <=11.0. The reference r hugo was not used to interpr et this result as dionne l/abnormal. [place] 778932-07-26 18:34:00 Test Item Value Reference Range Interpretation Comments Lymphocytes (test code = Lymphocytes) 8.0 20.0-40.0 [place] [address]-07-26 18:34:00 Test Item Value Reference Range Interpretation Comments Monocytes (test code = Monocytes) 0.0 2.0-12.0 [place] [address]-07-26 18:34:00 Test Item Value Reference Range Interpretation Comments Neutrophils # (test code = Neutrophils 12.4 1.5-8.1 #) [place] [address]-07-26 18:34:00 Test Item Value Reference Range Interpretation Comments Lymphocytes # (test code = Lymphocytes 1.1 1.0-5.5 #) [place] [address]-07-26 18:34:00 Test Item Value Reference Range Interpretation Comments Monocytes # (test code 0.0 See_Comment [Aut omated message] The = Monocytes #) system which generated this result tra nsmitted reference range : <=0.8. The reference r hugo was not used to int erpret this result as normal/abnormal . [place] 778932-07-26 18:34:00 Test Item Value Reference Range Interpretation Comments Hypochrom (test code = 1+ (06/14/22 1:34 PM) Hypochrom) [place] [address]-07-26 18:34:00 Test Item Value Reference Range Interpretation Comments Glucose Lvl (test code = Glucose Lvl) 110 70-99 [place] [address]-07-26 18:34:00 Test Item Value Reference Range Interpretation Comments BUN (test code = BUN) 28 - [place] 852652-07-26 18:34:00 Test Item Value Reference Range Interpretation Comments Creatinine Lvl (test code = Creatinine 1.05 0.50-1.40 Lvl) [place] 852652-07-26 18:34:00 Test Item Value Reference Range Interpretation Comments Sodium Lvl (test code = Sodium Lvl) 132 135-145 [place] 852652-07-26 18:34:00 Test Item Value Reference Range Interpretation Comments Potassium Lvl (test code = Potassium 4.4 3.5-5.1 Lvl) [place] 852652-07-26 18:34:00 Test Item Value Reference Range Interpretation Comments Chloride Lvl (test code = Chloride Lvl) 96 95-109 [place] 852652-07-26 18:34:00 Test Item Value Reference Range Interpretation Comments CO2 (test code = CO2) 27 24-32 [place] 852652-07-26 18:34:00 Test Item Value Reference Range Interpretation Comments Calcium Lvl (test code = Calcium Lvl) 8.5 8.5-10.5 [place] 852652-07-26 18:34:00 Test Item Value Reference Range Interpretation Comments AGAP (test code = AGAP) 13.4 10.0-20.0 [place] 852652-07-26 18:34:00 Test Item Value Reference Range Interpretation Comments eGFR (test code = eGFR) 51 [place] 778932-07-26 18:34:00 Test Item Value Reference Range Interpretation Comments WBC (test code = WBC) 13.5 3.7-10.4 [place] 778932-07-26 18:34:00 Test Item Value Reference Range Interpretation Comments RBC (test code = RBC) 3.63 4.20-5.40 [place] 778932-07-26 18:34:00 Test Item Value Reference Range Interpretation Comments Hgb (test code = Hgb) 8.7 12.0-16.0 [place] 778932-07-26 18:34:00 Test Item Value Reference Range Interpretation Comments Hct (test code = Hct) 28.2 36.0-48.0 [place] 778932-07-26 18:34:00 Test Item Value Reference Range Interpretation Comments MCV (test code = MCV) 77.5 80.0-98.0 [place] 778932-07-26 18:34:00 Test Item Value Reference Range Interpretation Comments MCH (test code = MCH) 24.0 pg 27.0-31.0 [place] 778932-07-26 18:34:00 Test Item Value Reference Range Interpretation Comments MCHC (test code = MCHC) 30.9 32.0-36.0 [id number] 18:34:00 Test Item Value Reference Range Interpretation Comments RDW (test code = RDW) 21.2 11.5-14.5 [place] 778932-07-26 18:34:00 Test Item Value Reference Range Interpretation Comments Platelet (test code = Platelet) 324 133-450 [facility] CenterXwtoveeDYUROQNNKJ8580-02-66 18:34:00 Test Item Value Reference Range Interpretation Comments MPV (test code = MPV) 7.6 7.4-10.4 [place] 778932-07-26 18:34:00 Test Item Value Reference Range Interpretation Comments Plt Morph (test code = Normal (06/14/22 1:34 Plt Morph) PM) [place] 778932-07-26 18:34:00 Test Item Value Reference Range Interpretation Comments Segs (test code = Segs) 89.0 45.0-75.0 [facility] CenterQmsxuopQLCKLJIXNT0801-74-40 18:34:00 Test Item Value Reference Range Interpretation Comments Bands (test code = 3.0 See_Comment [Automat ed message] The Bands) system which ge nerated this result transmit lavon reference range : <=11.0. The reference r hugo was not used to interpr et this result as dionne l/abnormal. [place] 778932-07-26 18:34:00 Test Item Value Reference Range Interpretation Comments Lymphocytes (test code = Lymphocytes) 8.0 20.0-40.0 [place] [address]-07-26 18:34:00 Test Item Value Reference Range Interpretation Comments Monocytes (test code = Monocytes) 0.0 2.0-12.0 [place] [address]-07-26 18:34:00 Test Item Value Reference Range Interpretation Comments Neutrophils # (test code = Neutrophils 12.4 1.5-8.1 #) [address]07-26 18:34:00 Test Item Value Reference Range Interpretation Comments Lymphocytes # (test code = Lymphocytes 1.1 1.0-5.5 #) [place] [address]-07-26 18:34:00 Test Item Value Reference Range Interpretation Comments Monocytes # (test code 0.0 See_Comment [Aut omated message] The = Monocytes #) system which generated this result tra nsmitted reference range : <=0.8. The reference r hugo was not used to int erpret this result as normal/abnormal . [place] 778932-07-26 18:34:00 Test Item Value Reference Range Interpretation Comments Hypochrom (test code = 1+ (06/14/22 1:34 PM) Hypochrom) [place] 852652-07-26 18:34:00 Test Item Value Reference Range Interpretation Comments Glucose Lvl (test code = Glucose Lvl) 110 70-99 [place] 852652-07-26 18:34:00 Test Item Value Reference Range Interpretation Comments BUN (test code = BUN) 28 7-22 [place] 852652-07-26 18:34:00 Test Item Value Reference Range Interpretation Comments Creatinine Lvl (test code = Creatinine 1.05 0.50-1.40 Lvl) [place] 852652-07-26 18:34:00 Test Item Value Reference Range Interpretation Comments Sodium Lvl (test code = Sodium Lvl) 132 135-145 [place] 852652-07-26 18:34:00 Test Item Value Reference Range Interpretation Comments Potassium Lvl (test code = Potassium 4.4 3.5-5.1 Lvl) [place] 852652-07-26 18:34:00 Test Item Value Reference Range Interpretation Comments Chloride Lvl (test code = Chloride Lvl) 96 95-109 [place] 852652-07-26 18:34:00 Test Item Value Reference Range Interpretation Comments CO2 (test code = CO2) 27 24-32 [place] 852652-07-26 18:34:00 Test Item Value Reference Range Interpretation Comments Calcium Lvl (test code = Calcium Lvl) 8.5 8.5-10.5 [place] 852652-07-26 18:34:00 Test Item Value Reference Range Interpretation Comments AGAP (test code = AGAP) 13.4 10.0-20.0 [place] 852652-07-26 18:34:00 Test Item Value Reference Range Interpretation Comments eGFR (test code = eGFR) 51 [place] 778932-07-26 18:34:00 Test Item Value Reference Range Interpretation Comments WBC (test code = WBC) 13.5 3.7-10.4 [place] 778932-07-26 18:34:00 Test Item Value Reference Range Interpretation Comments RBC (test code = RBC) 3.63 4.20-5.40 [place] 778932-07-26 18:34:00 Test Item Value Reference Range Interpretation Comments Hgb (test code = Hgb) 8.7 12.0-16.0 [place] [address]-07-26 18:34:00 Test Item Value Reference Range Interpretation Comments Hct (test code = Hct) 28.2 36.0-48.0 [place] [address]-07-26 18:34:00 Test Item Value Reference Range Interpretation Comments MCV (test code = MCV) 77.5 80.0-98.0 [place] [address]-07-26 18:34:00 Test Item Value Reference Range Interpretation Comments MCH (test code = MCH) 24.0 pg 27.0-31.0 [place] 778932-07-26 18:34:00 Test Item Value Reference Range Interpretation Comments MCHC (test code = MCHC) 30.9 32.0-36.0 [place] [address]-07-26 18:34:00 Test Item Value Reference Range Interpretation Comments RDW (test code = RDW) 21.2 11.5-14.5 [place] [address]-07-26 18:34:00 Test Item Value Reference Range Interpretation Comments Platelet (test code = Platelet) 324 133-450 [place] 778932-07-26 18:34:00 Test Item Value Reference Range Interpretation Comments MPV (test code = MPV) 7.6 7.4-10.4 [place] [address]-07-26 18:34:00 Test Item Value Reference Range Interpretation Comments Plt Morph (test code = Normal (06/14/22 1:34 Plt Morph) PM) [address]07-26 18:34:00 Test Item Value Reference Range Interpretation Comments Segs (test code = Segs) 89.0 45.0-75.0 [place] [address]-07-26 18:34:00 Test Item Value Reference Range Interpretation Comments Bands (test code = 3.0 See_Comment [Automat ed message] The Bands) system which ge nerated this result transmit lavon reference range : <=11.0. The reference r hugo was not used to interpr et this result as dionne l/abnormal. [place] 778932-07-26 18:34:00 Test Item Value Reference Range Interpretation Comments Lymphocytes (test code = Lymphocytes) 8.0 20.0-40.0 [place] [address]-07-26 18:34:00 Test Item Value Reference Range Interpretation Comments Monocytes (test code = Monocytes) 0.0 2.0-12.0 [place] [address]-07-26 18:34:00 Test Item Value Reference Range Interpretation Comments Neutrophils # (test code = Neutrophils 12.4 1.5-8.1 #) [place] [address]-07-26 18:34:00 Test Item Value Reference Range Interpretation Comments Lymphocytes # (test code = Lymphocytes 1.1 1.0-5.5 #) [place] [address]-07-26 18:34:00 Test Item Value Reference Range Interpretation Comments Monocytes # (test code 0.0 See_Comment [Aut omated message] The = Monocytes #) system which generated this result tra nsmitted reference range : <=0.8. The reference r hugo was not used to int erpret this result as normal/abnormal . [place] 778932-07-26 18:34:00 Test Item Value Reference Range Interpretation Comments Hypochrom (test code = 1+ (06/14/22 1:34 PM) Hypochrom) [place] [address]-07-26 18:34:00 Test Item Value Reference Range Interpretation Comments Glucose Lvl (test code = Glucose Lvl) 110 70-99 [place] [address]-07-26 18:34:00 Test Item Value Reference Range Interpretation Comments BUN (test code = BUN) 28 - [place] 852652-07-26 18:34:00 Test Item Value Reference Range Interpretation Comments Creatinine Lvl (test code = Creatinine 1.05 0.50-1.40 Lvl) [place] 852652-07-26 18:34:00 Test Item Value Reference Range Interpretation Comments Sodium Lvl (test code = Sodium Lvl) 132 135-145 [place] 852652-07-26 18:34:00 Test Item Value Reference Range Interpretation Comments Potassium Lvl (test code = Potassium 4.4 3.5-5.1 Lvl) [place] 852652-07-26 18:34:00 Test Item Value Reference Range Interpretation Comments Chloride Lvl (test code = Chloride Lvl) 96 95-109 [place] 852652-07-26 18:34:00 Test Item Value Reference Range Interpretation Comments CO2 (test code = CO2) 27 24-32 [place] 852652-07-26 18:34:00 Test Item Value Reference Range Interpretation Comments Calcium Lvl (test code = Calcium Lvl) 8.5 8.5-10.5 [place] 852652-07-26 18:34:00 Test Item Value Reference Range Interpretation Comments AGAP (test code = AGAP) 13.4 10.0-20.0 [place] 852652-07-26 18:34:00 Test Item Value Reference Range Interpretation Comments eGFR (test code = eGFR) 51 [place] 778932-07-26 18:34:00 Test Item Value Reference Range Interpretation Comments WBC (test code = WBC) 13.5 3.7-10.4 [place] 778932-07-26 18:34:00 Test Item Value Reference Range Interpretation Comments RBC (test code = RBC) 3.63 4.20-5.40 [place] 778932-07-26 18:34:00 Test Item Value Reference Range Interpretation Comments Hgb (test code = Hgb) 8.7 12.0-16.0 [place] 778932-07-26 18:34:00 Test Item Value Reference Range Interpretation Comments Hct (test code = Hct) 28.2 36.0-48.0 [place] 778932-07-26 18:34:00 Test Item Value Reference Range Interpretation Comments MCV (test code = MCV) 77.5 80.0-98.0 [place] 778932-07-26 18:34:00 Test Item Value Reference Range Interpretation Comments MCH (test code = MCH) 24.0 pg 27.0-31.0 [place] 778932-07-26 18:34:00 Test Item Value Reference Range Interpretation Comments MCHC (test code = MCHC) 30.9 32.0-36.0 [id number] 18:34:00 Test Item Value Reference Range Interpretation Comments RDW (test code = RDW) 21.2 11.5-14.5 [place] 778932-07-26 18:34:00 Test Item Value Reference Range Interpretation Comments Platelet (test code = Platelet) 324 133-450 [facility] CenterHyxaxzrQSXOHHGLSS1826-16-25 18:34:00 Test Item Value Reference Range Interpretation Comments MPV (test code = MPV) 7.6 7.4-10.4 [place] 778932-07-26 18:34:00 Test Item Value Reference Range Interpretation Comments Plt Morph (test code = Normal (06/14/22 1:34 Plt Morph) PM) [place] 778932-07-26 18:34:00 Test Item Value Reference Range Interpretation Comments Segs (test code = Segs) 89.0 45.0-75.0 [facility] CenterReedtwdUULHZPUNPA4362-74-86 18:34:00 Test Item Value Reference Range Interpretation Comments Bands (test code = 3.0 See_Comment [Automat ed message] The Bands) system which ge nerated this result transmit lavon reference range : <=11.0. The reference r hugo was not used to interpr et this result as dionne l/abnormal. [place] 778932-07-26 18:34:00 Test Item Value Reference Range Interpretation Comments Lymphocytes (test code = Lymphocytes) 8.0 20.0-40.0 [place] [address]-07-26 18:34:00 Test Item Value Reference Range Interpretation Comments Monocytes (test code = Monocytes) 0.0 2.0-12.0 [place] [address]-07-26 18:34:00 Test Item Value Reference Range Interpretation Comments Neutrophils # (test code = Neutrophils 12.4 1.5-8.1 #) [address]07-26 18:34:00 Test Item Value Reference Range Interpretation Comments Lymphocytes # (test code = Lymphocytes 1.1 1.0-5.5 #) [place] [address]-07-26 18:34:00 Test Item Value Reference Range Interpretation Comments Monocytes # (test code 0.0 See_Comment [Aut omated message] The = Monocytes #) system which generated this result tra nsmitted reference range : <=0.8. The reference r hugo was not used to int erpret this result as normal/abnormal . [place] 778932-07-26 18:34:00 Test Item Value Reference Range Interpretation Comments Hypochrom (test code = 1+ (06/14/22 1:34 PM) Hypochrom) [place] 852652-07-26 18:34:00 Test Item Value Reference Range Interpretation Comments Glucose Lvl (test code = Glucose Lvl) 110 70-99 [place] 852652-07-26 18:34:00 Test Item Value Reference Range Interpretation Comments BUN (test code = BUN) 28 7-22 [place] 852652-07-26 18:34:00 Test Item Value Reference Range Interpretation Comments Creatinine Lvl (test code = Creatinine 1.05 0.50-1.40 Lvl) [place] 852652-07-26 18:34:00 Test Item Value Reference Range Interpretation Comments Sodium Lvl (test code = Sodium Lvl) 132 135-145 [place] 852652-07-26 18:34:00 Test Item Value Reference Range Interpretation Comments Potassium Lvl (test code = Potassium 4.4 3.5-5.1 Lvl) [place] 852652-07-26 18:34:00 Test Item Value Reference Range Interpretation Comments Chloride Lvl (test code = Chloride Lvl) 96 95-109 [place] 852652-07-26 18:34:00 Test Item Value Reference Range Interpretation Comments CO2 (test code = CO2) 27 24-32 [place] 852652-07-26 18:34:00 Test Item Value Reference Range Interpretation Comments Calcium Lvl (test code = Calcium Lvl) 8.5 8.5-10.5 [place] 852652-07-26 18:34:00 Test Item Value Reference Range Interpretation Comments AGAP (test code = AGAP) 13.4 10.0-20.0 [place] 852652-07-26 18:34:00 Test Item Value Reference Range Interpretation Comments eGFR (test code = eGFR) 51 [place] 778932-07-26 18:34:00 Test Item Value Reference Range Interpretation Comments WBC (test code = WBC) 13.5 3.7-10.4 [place] 778932-07-26 18:34:00 Test Item Value Reference Range Interpretation Comments RBC (test code = RBC) 3.63 4.20-5.40 [place] 778932-07-26 18:34:00 Test Item Value Reference Range Interpretation Comments Hgb (test code = Hgb) 8.7 12.0-16.0 [place] [address]-07-26 18:34:00 Test Item Value Reference Range Interpretation Comments Hct (test code = Hct) 28.2 36.0-48.0 [place] [address]-07-26 18:34:00 Test Item Value Reference Range Interpretation Comments MCV (test code = MCV) 77.5 80.0-98.0 [place] [address]-07-26 18:34:00 Test Item Value Reference Range Interpretation Comments MCH (test code = MCH) 24.0 pg 27.0-31.0 [place] 778932-07-26 18:34:00 Test Item Value Reference Range Interpretation Comments MCHC (test code = MCHC) 30.9 32.0-36.0 [place] [address]-07-26 18:34:00 Test Item Value Reference Range Interpretation Comments RDW (test code = RDW) 21.2 11.5-14.5 [place] [address]-07-26 18:34:00 Test Item Value Reference Range Interpretation Comments Platelet (test code = Platelet) 324 133-450 [place] 778932-07-26 18:34:00 Test Item Value Reference Range Interpretation Comments MPV (test code = MPV) 7.6 7.4-10.4 [place] [address]-07-26 18:34:00 Test Item Value Reference Range Interpretation Comments Plt Morph (test code = Normal (06/14/22 1:34 Plt Morph) PM) [address]07-26 18:34:00 Test Item Value Reference Range Interpretation Comments Segs (test code = Segs) 89.0 45.0-75.0 [place] [address]-07-26 18:34:00 Test Item Value Reference Range Interpretation Comments Bands (test code = 3.0 See_Comment [Automat ed message] The Bands) system which ge nerated this result transmit lavon reference range : <=11.0. The reference r hugo was not used to interpr et this result as dionne l/abnormal. [place] 778932-07-26 18:34:00 Test Item Value Reference Range Interpretation Comments Lymphocytes (test code = Lymphocytes) 8.0 20.0-40.0 [place] [address]-07-26 18:34:00 Test Item Value Reference Range Interpretation Comments Monocytes (test code = Monocytes) 0.0 2.0-12.0 [place] [address]-07-26 18:34:00 Test Item Value Reference Range Interpretation Comments Neutrophils # (test code = Neutrophils 12.4 1.5-8.1 #) [place] [address]-07-26 18:34:00 Test Item Value Reference Range Interpretation Comments Lymphocytes # (test code = Lymphocytes 1.1 1.0-5.5 #) [place] [address]-07-26 18:34:00 Test Item Value Reference Range Interpretation Comments Monocytes # (test code 0.0 See_Comment [Aut omated message] The = Monocytes #) system which generated this result tra nsmitted reference range : <=0.8. The reference r hugo was not used to int erpret this result as normal/abnormal . [place] 778932-07-26 18:34:00 Test Item Value Reference Range Interpretation Comments Hypochrom (test code = 1+ (06/14/22 1:34 PM) Hypochrom) [place] [address]-07-26 18:34:00 Test Item Value Reference Range Interpretation Comments Glucose Lvl (test code = Glucose Lvl) 110 70-99 [place] [address]-07-26 18:34:00 Test Item Value Reference Range Interpretation Comments BUN (test code = BUN) 28 - [place] 852652-07-26 18:34:00 Test Item Value Reference Range Interpretation Comments Creatinine Lvl (test code = Creatinine 1.05 0.50-1.40 Lvl) [place] 852652-07-26 18:34:00 Test Item Value Reference Range Interpretation Comments Sodium Lvl (test code = Sodium Lvl) 132 135-145 [place] 852652-07-26 18:34:00 Test Item Value Reference Range Interpretation Comments Potassium Lvl (test code = Potassium 4.4 3.5-5.1 Lvl) [place] 852652-07-26 18:34:00 Test Item Value Reference Range Interpretation Comments Chloride Lvl (test code = Chloride Lvl) 96 95-109 [place] 852652-07-26 18:34:00 Test Item Value Reference Range Interpretation Comments CO2 (test code = CO2) 27 24-32 [place] 852652-07-26 18:34:00 Test Item Value Reference Range Interpretation Comments Calcium Lvl (test code = Calcium Lvl) 8.5 8.5-10.5 [place] 852652-07-26 18:34:00 Test Item Value Reference Range Interpretation Comments AGAP (test code = AGAP) 13.4 10.0-20.0 [place] 852652-07-26 18:34:00 Test Item Value Reference Range Interpretation Comments eGFR (test code = eGFR) 51 [place] 778932-07-26 18:34:00 Test Item Value Reference Range Interpretation Comments WBC (test code = WBC) 13.5 3.7-10.4 [place] 778932-07-26 18:34:00 Test Item Value Reference Range Interpretation Comments RBC (test code = RBC) 3.63 4.20-5.40 [place] 778932-07-26 18:34:00 Test Item Value Reference Range Interpretation Comments Hgb (test code = Hgb) 8.7 12.0-16.0 [place] 778932-07-26 18:34:00 Test Item Value Reference Range Interpretation Comments Hct (test code = Hct) 28.2 36.0-48.0 [place] 778932-07-26 18:34:00 Test Item Value Reference Range Interpretation Comments MCV (test code = MCV) 77.5 80.0-98.0 [place] 778932-07-26 18:34:00 Test Item Value Reference Range Interpretation Comments MCH (test code = MCH) 24.0 pg 27.0-31.0 [place] 778932-07-26 18:34:00 Test Item Value Reference Range Interpretation Comments MCHC (test code = MCHC) 30.9 32.0-36.0 [facility] 18:34:00 Test Item Value Reference Range Interpretation Comments RDW (test code = RDW) 21.2 11.5-14.5 [place] 778932-07-26 18:34:00 Test Item Value Reference Range Interpretation Comments Platelet (test code = Platelet) 324 133-450 [facility]LnofrepGGKZYWIFUM4618-78-75 18:34:00 Test Item Value Reference Range Interpretation Comments MPV (test code = MPV) 7.6 7.4-10.4 [place] 778932-07-26 18:34:00 Test Item Value Reference Range Interpretation Comments Plt Morph (test code = Normal (06/14/22 1:34 Plt Morph) PM) [place] 778932-07-26 18:34:00 Test Item Value Reference Range Interpretation Comments Segs (test code = Segs) 89.0 45.0-75.0 [facility] CenterYhnwhxvCURBXUZTZF7878-36-73 18:34:00 Test Item Value Reference Range Interpretation Comments Bands (test code = 3.0 See_Comment [Automat ed message] The Bands) system which ge nerated this result transmit lavon reference range : <=11.0. The reference r hugo was not used to interpr et this result as dionne l/abnormal. [place] 778932-07-26 18:34:00 Test Item Value Reference Range Interpretation Comments Lymphocytes (test code = Lymphocytes) 8.0 20.0-40.0 [place] [address]-07-26 18:34:00 Test Item Value Reference Range Interpretation Comments Monocytes (test code = Monocytes) 0.0 2.0-12.0 [place] [address]-07-26 18:34:00 Test Item Value Reference Range Interpretation Comments Neutrophils # (test code = Neutrophils 12.4 1.5-8.1 #) [address]07-26 18:34:00 Test Item Value Reference Range Interpretation Comments Lymphocytes # (test code = Lymphocytes 1.1 1.0-5.5 #) [place] [address]-07-26 18:34:00 Test Item Value Reference Range Interpretation Comments Monocytes # (test code 0.0 See_Comment [Aut omated message] The = Monocytes #) system which generated this result tra nsmitted reference range : <=0.8. The reference r hugo was not used to int erpret this result as normal/abnormal . [place] 778932-07-26 18:34:00 Test Item Value Reference Range Interpretation Comments Hypochrom (test code = 1+ (06/14/22 1:34 PM) Hypochrom) [place] 852652-07-26 18:34:00 Test Item Value Reference Range Interpretation Comments Glucose Lvl (test code = Glucose Lvl) 110 70-99 [place] 852652-07-26 18:34:00 Test Item Value Reference Range Interpretation Comments BUN (test code = BUN) 28 7-22 [place] 852652-07-26 18:34:00 Test Item Value Reference Range Interpretation Comments Creatinine Lvl (test code = Creatinine 1.05 0.50-1.40 Lvl) [place] 852652-07-26 18:34:00 Test Item Value Reference Range Interpretation Comments Sodium Lvl (test code = Sodium Lvl) 132 135-145 [place] 852652-07-26 18:34:00 Test Item Value Reference Range Interpretation Comments Potassium Lvl (test code = Potassium 4.4 3.5-5.1 Lvl) [place] 852652-07-26 18:34:00 Test Item Value Reference Range Interpretation Comments Chloride Lvl (test code = Chloride Lvl) 96 95-109 [place] 852652-07-26 18:34:00 Test Item Value Reference Range Interpretation Comments CO2 (test code = CO2) 27 24-32 [place] 852652-07-26 18:34:00 Test Item Value Reference Range Interpretation Comments Calcium Lvl (test code = Calcium Lvl) 8.5 8.5-10.5 [place] 852652-07-26 18:34:00 Test Item Value Reference Range Interpretation Comments AGAP (test code = AGAP) 13.4 10.0-20.0 [place] 852652-07-26 18:34:00 Test Item Value Reference Range Interpretation Comments eGFR (test code = eGFR) 51 [place] 778932-07-26 18:34:00 Test Item Value Reference Range Interpretation Comments WBC (test code = WBC) 13.5 3.7-10.4 [place] 778932-07-26 18:34:00 Test Item Value Reference Range Interpretation Comments RBC (test code = RBC) 3.63 4.20-5.40 [place] 778932-07-26 18:34:00 Test Item Value Reference Range Interpretation Comments Hgb (test code = Hgb) 8.7 12.0-16.0 [place] [address]-07-26 18:34:00 Test Item Value Reference Range Interpretation Comments Hct (test code = Hct) 28.2 36.0-48.0 [place] [address]-07-26 18:34:00 Test Item Value Reference Range Interpretation Comments MCV (test code = MCV) 77.5 80.0-98.0 [place] [address]-07-26 18:34:00 Test Item Value Reference Range Interpretation Comments MCH (test code = MCH) 24.0 pg 27.0-31.0 [place] 778932-07-26 18:34:00 Test Item Value Reference Range Interpretation Comments MCHC (test code = MCHC) 30.9 32.0-36.0 [place] [address]-07-26 18:34:00 Test Item Value Reference Range Interpretation Comments RDW (test code = RDW) 21.2 11.5-14.5 [place] [address]-07-26 18:34:00 Test Item Value Reference Range Interpretation Comments Platelet (test code = Platelet) 324 133-450 [place] 778932-07-26 18:34:00 Test Item Value Reference Range Interpretation Comments MPV (test code = MPV) 7.6 7.4-10.4 [place] [address]-07-26 18:34:00 Test Item Value Reference Range Interpretation Comments Plt Morph (test code = Normal (06/14/22 1:34 Plt Morph) PM) [address]07-26 18:34:00 Test Item Value Reference Range Interpretation Comments Segs (test code = Segs) 89.0 45.0-75.0 [place] [address]-07-26 18:34:00 Test Item Value Reference Range Interpretation Comments Bands (test code = 3.0 See_Comment [Automat ed message] The Bands) system which ge nerated this result transmit lavon reference range : <=11.0. The reference r hugo was not used to interpr et this result as dionne l/abnormal. [place] 778932-07-26 18:34:00 Test Item Value Reference Range Interpretation Comments Lymphocytes (test code = Lymphocytes) 8.0 20.0-40.0 [place] [address]-07-26 18:34:00 Test Item Value Reference Range Interpretation Comments Monocytes (test code = Monocytes) 0.0 2.0-12.0 [place] [address]-07-26 18:34:00 Test Item Value Reference Range Interpretation Comments Neutrophils # (test code = Neutrophils 12.4 1.5-8.1 #) [place] [address]-07-26 18:34:00 Test Item Value Reference Range Interpretation Comments Lymphocytes # (test code = Lymphocytes 1.1 1.0-5.5 #) [place] [address]-07-26 18:34:00 Test Item Value Reference Range Interpretation Comments Monocytes # (test code 0.0 See_Comment [Aut omated message] The = Monocytes #) system which generated this result tra nsmitted reference range : <=0.8. The reference r hugo was not used to int erpret this result as normal/abnormal . [place] 778932-07-26 18:34:00 Test Item Value Reference Range Interpretation Comments Hypochrom (test code = 1+ (06/14/22 1:34 PM) Hypochrom) [place] [address]-07-26 18:34:00 Test Item Value Reference Range Interpretation Comments Glucose Lvl (test code = Glucose Lvl) 110 70-99 [place] [address]-07-26 18:34:00 Test Item Value Reference Range Interpretation Comments BUN (test code = BUN) 28 - [place] 852652-07-26 18:34:00 Test Item Value Reference Range Interpretation Comments Creatinine Lvl (test code = Creatinine 1.05 0.50-1.40 Lvl) [place] 852652-07-26 18:34:00 Test Item Value Reference Range Interpretation Comments Sodium Lvl (test code = Sodium Lvl) 132 135-145 [place] 852652-07-26 18:34:00 Test Item Value Reference Range Interpretation Comments Potassium Lvl (test code = Potassium 4.4 3.5-5.1 Lvl) [place] 852652-07-26 18:34:00 Test Item Value Reference Range Interpretation Comments Chloride Lvl (test code = Chloride Lvl) 96 95-109 [place] 852652-07-26 18:34:00 Test Item Value Reference Range Interpretation Comments CO2 (test code = CO2) 27 24-32 [place] 852652-07-26 18:34:00 Test Item Value Reference Range Interpretation Comments Calcium Lvl (test code = Calcium Lvl) 8.5 8.5-10.5 [place] 852652-07-26 18:34:00 Test Item Value Reference Range Interpretation Comments AGAP (test code = AGAP) 13.4 10.0-20.0 [place] 852652-07-26 18:34:00 Test Item Value Reference Range Interpretation Comments eGFR (test code = eGFR) 51 [place] 778932-07-26 18:34:00 Test Item Value Reference Range Interpretation Comments WBC (test code = WBC) 13.5 3.7-10.4 [place] 778932-07-26 18:34:00 Test Item Value Reference Range Interpretation Comments RBC (test code = RBC) 3.63 4.20-5.40 [place] 778932-07-26 18:34:00 Test Item Value Reference Range Interpretation Comments Hgb (test code = Hgb) 8.7 12.0-16.0 [place] 778932-07-26 18:34:00 Test Item Value Reference Range Interpretation Comments Hct (test code = Hct) 28.2 36.0-48.0 [place] 778932-07-26 18:34:00 Test Item Value Reference Range Interpretation Comments MCV (test code = MCV) 77.5 80.0-98.0 [place] 778932-07-26 18:34:00 Test Item Value Reference Range Interpretation Comments MCH (test code = MCH) 24.0 pg 27.0-31.0 [place] 778932-07-26 18:34:00 Test Item Value Reference Range Interpretation Comments MCHC (test code = MCHC) 30.9 32.0-36.0 [facility]AsdpyraJCXSGLQXBC1993-56-26 18:34:00 Test Item Value Reference Range Interpretation Comments RDW (test code = RDW) 21.2 11.5-14.5 [place] 778932-07-26 18:34:00 Test Item Value Reference Range Interpretation Comments Platelet (test code = Platelet) 324 133-450 [facility] CenterQgadzngALKOPPOUUO1632-14-21 18:34:00 Test Item Value Reference Range Interpretation Comments MPV (test code = MPV) 7.6 7.4-10.4 [place] 778932-07-26 18:34:00 Test Item Value Reference Range Interpretation Comments Plt Morph (test code = Normal (06/14/22 1:34 Plt Morph) PM) [place] 778932-07-26 18:34:00 Test Item Value Reference Range Interpretation Comments Segs (test code = Segs) 89.0 45.0-75.0 [facility] CenterRxukaxbJTOJTWZNVC4466-35-50 18:34:00 Test Item Value Reference Range Interpretation Comments Bands (test code = 3.0 See_Comment [Automat ed message] The Bands) system which ge nerated this result transmit lavon reference range : <=11.0. The reference r hugo was not used to interpr et this result as dionne l/abnormal. [place] 778932-07-26 18:34:00 Test Item Value Reference Range Interpretation Comments Lymphocytes (test code = Lymphocytes) 8.0 20.0-40.0 [place] [address]-07-26 18:34:00 Test Item Value Reference Range Interpretation Comments Monocytes (test code = Monocytes) 0.0 2.0-12.0 [place] [address]-07-26 18:34:00 Test Item Value Reference Range Interpretation Comments Neutrophils # (test code = Neutrophils 12.4 1.5-8.1 #) [address]07-26 18:34:00 Test Item Value Reference Range Interpretation Comments Lymphocytes # (test code = Lymphocytes 1.1 1.0-5.5 #) [place] [address]-07-26 18:34:00 Test Item Value Reference Range Interpretation Comments Monocytes # (test code 0.0 See_Comment [Aut omated message] The = Monocytes #) system which generated this result tra nsmitted reference range : <=0.8. The reference r hugo was not used to int erpret this result as normal/abnormal . [place] 778932-07-26 18:34:00 Test Item Value Reference Range Interpretation Comments Hypochrom (test code = 1+ (06/14/22 1:34 PM) Hypochrom) [place] 852652-07-26 18:34:00 Test Item Value Reference Range Interpretation Comments Glucose Lvl (test code = Glucose Lvl) 110 70-99 [place] 852652-07-26 18:34:00 Test Item Value Reference Range Interpretation Comments BUN (test code = BUN) 28 7-22 [place] 852652-07-26 18:34:00 Test Item Value Reference Range Interpretation Comments Creatinine Lvl (test code = Creatinine 1.05 0.50-1.40 Lvl) [place] 852652-07-26 18:34:00 Test Item Value Reference Range Interpretation Comments Sodium Lvl (test code = Sodium Lvl) 132 135-145 [place] 852652-07-26 18:34:00 Test Item Value Reference Range Interpretation Comments Potassium Lvl (test code = Potassium 4.4 3.5-5.1 Lvl) [place] 852652-07-26 18:34:00 Test Item Value Reference Range Interpretation Comments Chloride Lvl (test code = Chloride Lvl) 96 95-109 [place] 852652-07-26 18:34:00 Test Item Value Reference Range Interpretation Comments CO2 (test code = CO2) 27 24-32 [place] 852652-07-26 18:34:00 Test Item Value Reference Range Interpretation Comments Calcium Lvl (test code = Calcium Lvl) 8.5 8.5-10.5 [place] 852652-07-26 18:34:00 Test Item Value Reference Range Interpretation Comments AGAP (test code = AGAP) 13.4 10.0-20.0 [place] 852652-07-26 18:34:00 Test Item Value Reference Range Interpretation Comments eGFR (test code = eGFR) 51 [place] 778932-07-26 18:34:00 Test Item Value Reference Range Interpretation Comments WBC (test code = WBC) 13.5 3.7-10.4 [place] 778932-07-26 18:34:00 Test Item Value Reference Range Interpretation Comments RBC (test code = RBC) 3.63 4.20-5.40 [place] 778932-07-26 18:34:00 Test Item Value Reference Range Interpretation Comments Hgb (test code = Hgb) 8.7 12.0-16.0 [place] [address]-07-26 18:34:00 Test Item Value Reference Range Interpretation Comments Hct (test code = Hct) 28.2 36.0-48.0 [place] [address]-07-26 18:34:00 Test Item Value Reference Range Interpretation Comments MCV (test code = MCV) 77.5 80.0-98.0 [place] [address]-07-26 18:34:00 Test Item Value Reference Range Interpretation Comments MCH (test code = MCH) 24.0 pg 27.0-31.0 [place] 778932-07-26 18:34:00 Test Item Value Reference Range Interpretation Comments MCHC (test code = MCHC) 30.9 32.0-36.0 [place] [address]-07-26 18:34:00 Test Item Value Reference Range Interpretation Comments RDW (test code = RDW) 21.2 11.5-14.5 [place] [address]-07-26 18:34:00 Test Item Value Reference Range Interpretation Comments Platelet (test code = Platelet) 324 133-450 [place] 778932-07-26 18:34:00 Test Item Value Reference Range Interpretation Comments MPV (test code = MPV) 7.6 7.4-10.4 [place] [address]-07-26 18:34:00 Test Item Value Reference Range Interpretation Comments Plt Morph (test code = Normal (06/14/22 1:34 Plt Morph) PM) [address]07-26 18:34:00 Test Item Value Reference Range Interpretation Comments Segs (test code = Segs) 89.0 45.0-75.0 [place] [address]-07-26 18:34:00 Test Item Value Reference Range Interpretation Comments Bands (test code = 3.0 See_Comment [Automat ed message] The Bands) system which ge nerated this result transmit lavon reference range : <=11.0. The reference r hugo was not used to interpr et this result as dionne l/abnormal. [place] 778932-07-26 18:34:00 Test Item Value Reference Range Interpretation Comments Lymphocytes (test code = Lymphocytes) 8.0 20.0-40.0 [place] [address]-07-26 18:34:00 Test Item Value Reference Range Interpretation Comments Monocytes (test code = Monocytes) 0.0 2.0-12.0 [place] [address]-07-26 18:34:00 Test Item Value Reference Range Interpretation Comments Neutrophils # (test code = Neutrophils 12.4 1.5-8.1 #) [place] [address]-07-26 18:34:00 Test Item Value Reference Range Interpretation Comments Lymphocytes # (test code = Lymphocytes 1.1 1.0-5.5 #) [place] [address]-07-26 18:34:00 Test Item Value Reference Range Interpretation Comments Monocytes # (test code 0.0 See_Comment [Aut omated message] The = Monocytes #) system which generated this result tra nsmitted reference range : <=0.8. The reference r hugo was not used to int erpret this result as normal/abnormal . [place] 778932-07-26 18:34:00 Test Item Value Reference Range Interpretation Comments Hypochrom (test code = 1+ (06/14/22 1:34 PM) Hypochrom) [place] [address]-07-26 18:34:00 Test Item Value Reference Range Interpretation Comments Glucose Lvl (test code = Glucose Lvl) 110 70-99 [place] [address]-07-26 18:34:00 Test Item Value Reference Range Interpretation Comments BUN (test code = BUN) 28 - [place] 852652-07-26 18:34:00 Test Item Value Reference Range Interpretation Comments Creatinine Lvl (test code = Creatinine 1.05 0.50-1.40 Lvl) [place] 852652-07-26 18:34:00 Test Item Value Reference Range Interpretation Comments Sodium Lvl (test code = Sodium Lvl) 132 135-145 [place] 852652-07-26 18:34:00 Test Item Value Reference Range Interpretation Comments Potassium Lvl (test code = Potassium 4.4 3.5-5.1 Lvl) [place] 852652-07-26 18:34:00 Test Item Value Reference Range Interpretation Comments Chloride Lvl (test code = Chloride Lvl) 96 95-109 [place] 852652-07-26 18:34:00 Test Item Value Reference Range Interpretation Comments CO2 (test code = CO2) 27 24-32 [place] 852652-07-26 18:34:00 Test Item Value Reference Range Interpretation Comments Calcium Lvl (test code = Calcium Lvl) 8.5 8.5-10.5 [place] 852652-07-26 18:34:00 Test Item Value Reference Range Interpretation Comments AGAP (test code = AGAP) 13.4 10.0-20.0 [place] 852652-07-26 18:34:00 Test Item Value Reference Range Interpretation Comments eGFR (test code = eGFR) 51 [place] 778932-07-26 18:34:00 Test Item Value Reference Range Interpretation Comments WBC (test code = WBC) 13.5 3.7-10.4 [place] 778932-07-26 18:34:00 Test Item Value Reference Range Interpretation Comments RBC (test code = RBC) 3.63 4.20-5.40 [place] 778932-07-26 18:34:00 Test Item Value Reference Range Interpretation Comments Hgb (test code = Hgb) 8.7 12.0-16.0 [place] 778932-07-26 18:34:00 Test Item Value Reference Range Interpretation Comments Hct (test code = Hct) 28.2 36.0-48.0 [place] 778932-07-26 18:34:00 Test Item Value Reference Range Interpretation Comments MCV (test code = MCV) 77.5 80.0-98.0 [place] 778932-07-26 18:34:00 Test Item Value Reference Range Interpretation Comments MCH (test code = MCH) 24.0 pg 27.0-31.0 [place] 778932-07-26 18:34:00 Test Item Value Reference Range Interpretation Comments MCHC (test code = MCHC) 30.9 32.0-36.0 [facility]OhdwsjxPPBVOYIJPK1338-34-98 18:34:00 Test Item Value Reference Range Interpretation Comments RDW (test code = RDW) 21.2 11.5-14.5 [place] 778932-07-26 18:34:00 Test Item Value Reference Range Interpretation Comments Platelet (test code = Platelet) 324 133-450 [facility] CenterPnepbjpDFKPXTCWCA3648-81-64 18:34:00 Test Item Value Reference Range Interpretation Comments MPV (test code = MPV) 7.6 7.4-10.4 [place] 778932-07-26 18:34:00 Test Item Value Reference Range Interpretation Comments Plt Morph (test code = Normal (06/14/22 1:34 Plt Morph) PM) [place] 778932-07-26 18:34:00 Test Item Value Reference Range Interpretation Comments Segs (test code = Segs) 89.0 45.0-75.0 [facility] CenterZugukerNLZWADYTFU5937-42-93 18:34:00 Test Item Value Reference Range Interpretation Comments Bands (test code = 3.0 See_Comment [Automat ed message] The Bands) system which ge nerated this result transmit lavon reference range : <=11.0. The reference r hugo was not used to interpr et this result as dionne l/abnormal. [place] 778932-07-26 18:34:00 Test Item Value Reference Range Interpretation Comments Lymphocytes (test code = Lymphocytes) 8.0 20.0-40.0 [place] [address]-07-26 18:34:00 Test Item Value Reference Range Interpretation Comments Monocytes (test code = Monocytes) 0.0 2.0-12.0 [place] [address]-07-26 18:34:00 Test Item Value Reference Range Interpretation Comments Neutrophils # (test code = Neutrophils 12.4 1.5-8.1 #) [address]07-26 18:34:00 Test Item Value Reference Range Interpretation Comments Lymphocytes # (test code = Lymphocytes 1.1 1.0-5.5 #) [place] [address]-07-26 18:34:00 Test Item Value Reference Range Interpretation Comments Monocytes # (test code 0.0 See_Comment [Aut omated message] The = Monocytes #) system which generated this result tra nsmitted reference range : <=0.8. The reference r hugo was not used to int erpret this result as normal/abnormal . [place] 778932-07-26 18:34:00 Test Item Value Reference Range Interpretation Comments Hypochrom (test code = 1+ (06/14/22 1:34 PM) Hypochrom) [place] 852652-07-26 18:34:00 Test Item Value Reference Range Interpretation Comments Glucose Lvl (test code = Glucose Lvl) 110 70-99 [place] 852652-07-26 18:34:00 Test Item Value Reference Range Interpretation Comments BUN (test code = BUN) 28 7-22 [place] 852652-07-26 18:34:00 Test Item Value Reference Range Interpretation Comments Creatinine Lvl (test code = Creatinine 1.05 0.50-1.40 Lvl) [place] 852652-07-26 18:34:00 Test Item Value Reference Range Interpretation Comments Sodium Lvl (test code = Sodium Lvl) 132 135-145 [place] 852652-07-26 18:34:00 Test Item Value Reference Range Interpretation Comments Potassium Lvl (test code = Potassium 4.4 3.5-5.1 Lvl) [place]2652-07-26 18:34:00 Test Item Value Reference Range Interpretation Comments Chloride Lvl (test code = Chloride Lvl) 96 95-109 [place] 852652-07-26 18:34:00 Test Item Value Reference Range Interpretation Comments CO2 (test code = CO2) 27 24-32 [place] 852652-07-26 18:34:00 Test Item Value Reference Range Interpretation Comments Calcium Lvl (test code = Calcium Lvl) 8.5 8.5-10.5 [place] 852652-07-26 18:34:00 Test Item Value Reference Range Interpretation Comments AGAP (test code = AGAP) 13.4 10.0-20.0 [place] 852652-07-26 18:34:00 Test Item Value Reference Range Interpretation Comments eGFR (test code = eGFR) 51 [place] 778932-07-26 18:34:00 Test Item Value Reference Range Interpretation Comments WBC (test code = WBC) 13.5 3.7-10.4 [place] 778932-07-26 18:34:00 Test Item Value Reference Range Interpretation Comments RBC (test code = RBC) 3.63 4.20-5.40 [place] 778932-07-26 18:34:00 Test Item Value Reference Range Interpretation Comments Hgb (test code = Hgb) 8.7 12.0-16.0 [place] [address]-07-26 18:34:00 Test Item Value Reference Range Interpretation Comments Hct (test code = Hct) 28.2 36.0-48.0 [place] [address]-07-26 18:34:00 Test Item Value Reference Range Interpretation Comments MCV (test code = MCV) 77.5 80.0-98.0 [place] [address]-07-26 18:34:00 Test Item Value Reference Range Interpretation Comments MCH (test code = MCH) 24.0 pg 27.0-31.0 [place] 778932-07-26 18:34:00 Test Item Value Reference Range Interpretation Comments MCHC (test code = MCHC) 30.9 32.0-36.0 [place] [address]-07-26 18:34:00 Test Item Value Reference Range Interpretation Comments RDW (test code = RDW) 21.2 11.5-14.5 [place] [address]-07-26 18:34:00 Test Item Value Reference Range Interpretation Comments Platelet (test code = Platelet) 324 133-450 [place] 778932-07-26 18:34:00 Test Item Value Reference Range Interpretation Comments MPV (test code = MPV) 7.6 7.4-10.4 [place] [address]-07-26 18:34:00 Test Item Value Reference Range Interpretation Comments Plt Morph (test code = Normal (06/14/22 1:34 Plt Morph) PM) [address]07-26 18:34:00 Test Item Value Reference Range Interpretation Comments Segs (test code = Segs) 89.0 45.0-75.0 [place] [address]-07-26 18:34:00 Test Item Value Reference Range Interpretation Comments Bands (test code = 3.0 See_Comment [Automat ed message] The Bands) system which ge nerated this result transmit lavon reference range : <=11.0. The reference r hugo was not used to interpr et this result as dionne l/abnormal. [place] 778932-07-26 18:34:00 Test Item Value Reference Range Interpretation Comments Lymphocytes (test code = Lymphocytes) 8.0 20.0-40.0 [place] [address]-07-26 18:34:00 Test Item Value Reference Range Interpretation Comments Monocytes (test code = Monocytes) 0.0 2.0-12.0 [place] [address]-07-26 18:34:00 Test Item Value Reference Range Interpretation Comments Neutrophils # (test code = Neutrophils 12.4 1.5-8.1 #) [place] [address]-07-26 18:34:00 Test Item Value Reference Range Interpretation Comments Lymphocytes # (test code = Lymphocytes 1.1 1.0-5.5 #) [place] [address]-07-26 18:34:00 Test Item Value Reference Range Interpretation Comments Monocytes # (test code 0.0 See_Comment [Aut omated message] The = Monocytes #) system which generated this result tra nsmitted reference range : <=0.8. The reference r hugo was not used to int erpret this result as normal/abnormal . [place] 778932-07-26 18:34:00 Test Item Value Reference Range Interpretation Comments Hypochrom (test code = 1+ (06/14/22 1:34 PM) Hypochrom) [place] [address]-07-26 18:34:00 Test Item Value Reference Range Interpretation Comments Glucose Lvl (test code = Glucose Lvl) 110 70-99 [place] [address]-07-26 18:34:00 Test Item Value Reference Range Interpretation Comments BUN (test code = BUN) 28 - [place] 852652-07-26 18:34:00 Test Item Value Reference Range Interpretation Comments Creatinine Lvl (test code = Creatinine 1.05 0.50-1.40 Lvl) [place] 852652-07-26 18:34:00 Test Item Value Reference Range Interpretation Comments Sodium Lvl (test code = Sodium Lvl) 132 135-145 [place] 852652-07-26 18:34:00 Test Item Value Reference Range Interpretation Comments Potassium Lvl (test code = Potassium 4.4 3.5-5.1 Lvl) [place] 852652-07-26 18:34:00 Test Item Value Reference Range Interpretation Comments Chloride Lvl (test code = Chloride Lvl) 96 95-109 [place] 852652-07-26 18:34:00 Test Item Value Reference Range Interpretation Comments CO2 (test code = CO2) 27 24-32 [place] 852652-07-26 18:34:00 Test Item Value Reference Range Interpretation Comments Calcium Lvl (test code = Calcium Lvl) 8.5 8.5-10.5 [place] 852652-07-26 18:34:00 Test Item Value Reference Range Interpretation Comments AGAP (test code = AGAP) 13.4 10.0-20.0 [place] 852652-07-26 18:34:00 Test Item Value Reference Range Interpretation Comments eGFR (test code = eGFR) 51 [place] 778932-07-26 18:34:00 Test Item Value Reference Range Interpretation Comments WBC (test code = WBC) 13.5 3.7-10.4 [place] 778932-07-26 18:34:00 Test Item Value Reference Range Interpretation Comments RBC (test code = RBC) 3.63 4.20-5.40 [place] 778932-07-26 18:34:00 Test Item Value Reference Range Interpretation Comments Hgb (test code = Hgb) 8.7 12.0-16.0 [place] 778932-07-26 18:34:00 Test Item Value Reference Range Interpretation Comments Hct (test code = Hct) 28.2 36.0-48.0 [place] 778932-07-26 18:34:00 Test Item Value Reference Range Interpretation Comments MCV (test code = MCV) 77.5 80.0-98.0 [place] 778932-07-26 18:34:00 Test Item Value Reference Range Interpretation Comments MCH (test code = MCH) 24.0 pg 27.0-31.0 [place] 778932-07-26 18:34:00 Test Item Value Reference Range Interpretation Comments MCHC (test code = MCHC) 30.9 32.0-36.0 [facility] 18:34:00 Test Item Value Reference Range Interpretation Comments RDW (test code = RDW) 21.2 11.5-14.5 [place] 778932-07-26 18:34:00 Test Item Value Reference Range Interpretation Comments Platelet (test code = Platelet) 324 133-450 [facility]latnkpYWLIEFOVFH4473-50-72 18:34:00 Test Item Value Reference Range Interpretation Comments MPV (test code = MPV) 7.6 7.4-10.4 [place] 778932-07-26 18:34:00 Test Item Value Reference Range Interpretation Comments Plt Morph (test code = Normal (06/14/22 1:34 Plt Morph) PM) [place] 778932-07-26 18:34:00 Test Item Value Reference Range Interpretation Comments Segs (test code = Segs) 89.0 45.0-75.0 [facility]MdbpzulRHVTJTGPYD0873-50-72 18:34:00 Test Item Value Reference Range Interpretation Comments Bands (test code = 3.0 See_Comment [Automat ed message] The Bands) system which ge nerated this result transmit lavon reference range : <=11.0. The reference r hugo was not used to interpr et this result as dionne l/abnormal. [place] 778932-07-26 18:34:00 Test Item Value Reference Range Interpretation Comments Lymphocytes (test code = Lymphocytes) 8.0 20.0-40.0 [place] [address]-07-26 18:34:00 Test Item Value Reference Range Interpretation Comments Monocytes (test code = Monocytes) 0.0 2.0-12.0 [place] [address]-07-26 18:34:00 Test Item Value Reference Range Interpretation Comments Neutrophils # (test code = Neutrophils 12.4 1.5-8.1 #) [address]07-26 18:34:00 Test Item Value Reference Range Interpretation Comments Lymphocytes # (test code = Lymphocytes 1.1 1.0-5.5 #) [place] [address]-07-26 18:34:00 Test Item Value Reference Range Interpretation Comments Monocytes # (test code 0.0 See_Comment [Aut omated message] The = Monocytes #) system which generated this result tra nsmitted reference range : <=0.8. The reference r hugo was not used to int erpret this result as normal/abnormal . [place] 778932-07-26 18:34:00 Test Item Value Reference Range Interpretation Comments Hypochrom (test code = 1+ (06/14/22 1:34 PM) Hypochrom) [place] 852652-07-26 18:34:00 Test Item Value Reference Range Interpretation Comments Glucose Lvl (test code = Glucose Lvl) 110 70-99 [place] 852652-07-26 18:34:00 Test Item Value Reference Range Interpretation Comments BUN (test code = BUN) 28 7-22 [place] 852652-07-26 18:34:00 Test Item Value Reference Range Interpretation Comments Creatinine Lvl (test code = Creatinine 1.05 0.50-1.40 Lvl) [place] 852652-07-26 18:34:00 Test Item Value Reference Range Interpretation Comments Sodium Lvl (test code = Sodium Lvl) 132 135-145 [place] 852652-07-26 18:34:00 Test Item Value Reference Range Interpretation Comments Potassium Lvl (test code = Potassium 4.4 3.5-5.1 Lvl) [place] 852652-07-26 18:34:00 Test Item Value Reference Range Interpretation Comments Chloride Lvl (test code = Chloride Lvl) 96 95-109 [place] 852652-07-26 18:34:00 Test Item Value Reference Range Interpretation Comments CO2 (test code = CO2) 27 24-32 [place] 852652-07-26 18:34:00 Test Item Value Reference Range Interpretation Comments Calcium Lvl (test code = Calcium Lvl) 8.5 8.5-10.5 [place] 852652-07-26 18:34:00 Test Item Value Reference Range Interpretation Comments AGAP (test code = AGAP) 13.4 10.0-20.0 [place] 852652-07-26 18:34:00 Test Item Value Reference Range Interpretation Comments eGFR (test code = eGFR) 51 [place] 778932-07-26 18:34:00 Test Item Value Reference Range Interpretation Comments WBC (test code = WBC) 13.5 3.7-10.4 [place] 778932-07-26 18:34:00 Test Item Value Reference Range Interpretation Comments RBC (test code = RBC) 3.63 4.20-5.40 [place] 778932-07-26 18:34:00 Test Item Value Reference Range Interpretation Comments Hgb (test code = Hgb) 8.7 12.0-16.0 [place] [address]-07-26 18:34:00 Test Item Value Reference Range Interpretation Comments Hct (test code = Hct) 28.2 36.0-48.0 [place] [address]-07-26 18:34:00 Test Item Value Reference Range Interpretation Comments MCV (test code = MCV) 77.5 80.0-98.0 [place] [address]-07-26 18:34:00 Test Item Value Reference Range Interpretation Comments MCH (test code = MCH) 24.0 pg 27.0-31.0 [place] 778932-07-26 18:34:00 Test Item Value Reference Range Interpretation Comments MCHC (test code = MCHC) 30.9 32.0-36.0 [place] [address]-07-26 18:34:00 Test Item Value Reference Range Interpretation Comments RDW (test code = RDW) 21.2 11.5-14.5 [place] [address]-07-26 18:34:00 Test Item Value Reference Range Interpretation Comments Platelet (test code = Platelet) 324 133-450 [place] 778932-07-26 18:34:00 Test Item Value Reference Range Interpretation Comments MPV (test code = MPV) 7.6 7.4-10.4 [place] [address]-07-26 18:34:00 Test Item Value Reference Range Interpretation Comments Plt Morph (test code = Normal (06/14/22 1:34 Plt Morph) PM) [address]07-26 18:34:00 Test Item Value Reference Range Interpretation Comments Segs (test code = Segs) 89.0 45.0-75.0 [place] [address]-07-26 18:34:00 Test Item Value Reference Range Interpretation Comments Bands (test code = 3.0 See_Comment [Automat ed message] The Bands) system which ge nerated this result transmit lavon reference range : <=11.0. The reference r hugo was not used to interpr et this result as dionne l/abnormal. [place] 778932-07-26 18:34:00 Test Item Value Reference Range Interpretation Comments Lymphocytes (test code = Lymphocytes) 8.0 20.0-40.0 [place] [address]-07-26 18:34:00 Test Item Value Reference Range Interpretation Comments Monocytes (test code = Monocytes) 0.0 2.0-12.0 [place] [address]-07-26 18:34:00 Test Item Value Reference Range Interpretation Comments Neutrophils # (test code = Neutrophils 12.4 1.5-8.1 #) [place] [address]-07-26 18:34:00 Test Item Value Reference Range Interpretation Comments Lymphocytes # (test code = Lymphocytes 1.1 1.0-5.5 #) [place] [address]-07-26 18:34:00 Test Item Value Reference Range Interpretation Comments Monocytes # (test code 0.0 See_Comment [Aut omated message] The = Monocytes #) system which generated this result tra nsmitted reference range : <=0.8. The reference r hugo was not used to int erpret this result as normal/abnormal . [place] 778932-07-26 18:34:00 Test Item Value Reference Range Interpretation Comments Hypochrom (test code = 1+ (06/14/22 1:34 PM) Hypochrom) [place] [address]-07-26 18:34:00 Test Item Value Reference Range Interpretation Comments Glucose Lvl (test code = Glucose Lvl) 110 70-99 [place] [address]-07-26 18:34:00 Test Item Value Reference Range Interpretation Comments BUN (test code = BUN) 28 - [place] 852652-07-26 18:34:00 Test Item Value Reference Range Interpretation Comments Creatinine Lvl (test code = Creatinine 1.05 0.50-1.40 Lvl) [place] 852652-07-26 18:34:00 Test Item Value Reference Range Interpretation Comments Sodium Lvl (test code = Sodium Lvl) 132 135-145 [place] 852652-07-26 18:34:00 Test Item Value Reference Range Interpretation Comments Potassium Lvl (test code = Potassium 4.4 3.5-5.1 Lvl) [place] 852652-07-26 18:34:00 Test Item Value Reference Range Interpretation Comments Chloride Lvl (test code = Chloride Lvl) 96 95-109 [place] 852652-07-26 18:34:00 Test Item Value Reference Range Interpretation Comments CO2 (test code = CO2) 27 24-32 [place] 852652-07-26 18:34:00 Test Item Value Reference Range Interpretation Comments Calcium Lvl (test code = Calcium Lvl) 8.5 8.5-10.5 [place] 852652-07-26 18:34:00 Test Item Value Reference Range Interpretation Comments AGAP (test code = AGAP) 13.4 10.0-20.0 [place] 852652-07-26 18:34:00 Test Item Value Reference Range Interpretation Comments eGFR (test code = eGFR) 51 [place] 778932-07-26 18:34:00 Test Item Value Reference Range Interpretation Comments WBC (test code = WBC) 13.5 3.7-10.4 [place] 778932-07-26 18:34:00 Test Item Value Reference Range Interpretation Comments RBC (test code = RBC) 3.63 4.20-5.40 [place] 778932-07-26 18:34:00 Test Item Value Reference Range Interpretation Comments Hgb (test code = Hgb) 8.7 12.0-16.0 [place] 778932-07-26 18:34:00 Test Item Value Reference Range Interpretation Comments Hct (test code = Hct) 28.2 36.0-48.0 [place] 778932-07-26 18:34:00 Test Item Value Reference Range Interpretation Comments MCV (test code = MCV) 77.5 80.0-98.0 [place] 778932-07-26 18:34:00 Test Item Value Reference Range Interpretation Comments MCH (test code = MCH) 24.0 pg 27.0-31.0 [place] 778932-07-26 18:34:00 Test Item Value Reference Range Interpretation Comments MCHC (test code = MCHC) 30.9 32.0-36.0 [facility]pid[facility]kVMNUAVBWRO3577-73-66 18:34:00 Test Item Value Reference Range Interpretation Comments RDW (test code = RDW) 21.2 11.5-14.5 [place] 778932-07-26 18:34:00 Test Item Value Reference Range Interpretation Comments Platelet (test code = Platelet) 324 133-450 [facility] CenterUvhcsmzXGYDMKAUWD8468-87-10 18:34:00 Test Item Value Reference Range Interpretation Comments MPV (test code = MPV) 7.6 7.4-10.4 [place] 778932-07-26 18:34:00 Test Item Value Reference Range Interpretation Comments Plt Morph (test code = Normal (06/14/22 1:34 Plt Morph) PM) [place] 778932-07-26 18:34:00 Test Item Value Reference Range Interpretation Comments Segs (test code = Segs) 89.0 45.0-75.0 [facility] CenterBbzghgdKTDNNZJVJP3711-40-36 18:34:00 Test Item Value Reference Range Interpretation Comments Bands (test code = 3.0 See_Comment [Automat ed message] The Bands) system which ge nerated this result transmit lavon reference range : <=11.0. The reference r hugo was not used to interpr et this result as dionne l/abnormal. [place] 778932-07-26 18:34:00 Test Item Value Reference Range Interpretation Comments Lymphocytes (test code = Lymphocytes) 8.0 20.0-40.0 [place] [address]-07-26 18:34:00 Test Item Value Reference Range Interpretation Comments Monocytes (test code = Monocytes) 0.0 2.0-12.0 [place] [address]-07-26 18:34:00 Test Item Value Reference Range Interpretation Comments Neutrophils # (test code = Neutrophils 12.4 1.5-8.1 #) [address]07-26 18:34:00 Test Item Value Reference Range Interpretation Comments Lymphocytes # (test code = Lymphocytes 1.1 1.0-5.5 #) [place] [address]-07-26 18:34:00 Test Item Value Reference Range Interpretation Comments Monocytes # (test code 0.0 See_Comment [Aut omated message] The = Monocytes #) system which generated this result tra nsmitted reference range : <=0.8. The reference r hugo was not used to int erpret this result as normal/abnormal . [place] 778932-07-26 18:34:00 Test Item Value Reference Range Interpretation Comments Hypochrom (test code = 1+ (06/14/22 1:34 PM) Hypochrom) [place] 852652-07-26 18:34:00 Test Item Value Reference Range Interpretation Comments Glucose Lvl (test code = Glucose Lvl) 110 70-99 [place] 852652-07-26 18:34:00 Test Item Value Reference Range Interpretation Comments BUN (test code = BUN) 28 7-22 [place] 852652-07-26 18:34:00 Test Item Value Reference Range Interpretation Comments Creatinine Lvl (test code = Creatinine 1.05 0.50-1.40 Lvl) [place] 852652-07-26 18:34:00 Test Item Value Reference Range Interpretation Comments Sodium Lvl (test code = Sodium Lvl) 132 135-145 [place] 852652-07-26 18:34:00 Test Item Value Reference Range Interpretation Comments Potassium Lvl (test code = Potassium 4.4 3.5-5.1 Lvl) [place] 852652-07-26 18:34:00 Test Item Value Reference Range Interpretation Comments Chloride Lvl (test code = Chloride Lvl) 96 95-109 [place] 852652-07-26 18:34:00 Test Item Value Reference Range Interpretation Comments CO2 (test code = CO2) 27 24-32 [place] 852652-07-26 18:34:00 Test Item Value Reference Range Interpretation Comments Calcium Lvl (test code = Calcium Lvl) 8.5 8.5-10.5 [place] 852652-07-26 18:34:00 Test Item Value Reference Range Interpretation Comments AGAP (test code = AGAP) 13.4 10.0-20.0 [place] 852652-07-26 18:34:00 Test Item Value Reference Range Interpretation Comments eGFR (test code = eGFR) 51 [place] 778932-07-26 18:34:00 Test Item Value Reference Range Interpretation Comments WBC (test code = WBC) 13.5 3.7-10.4 [place] 778932-07-26 18:34:00 Test Item Value Reference Range Interpretation Comments RBC (test code = RBC) 3.63 4.20-5.40 [place] 778932-07-26 18:34:00 Test Item Value Reference Range Interpretation Comments Hgb (test code = Hgb) 8.7 12.0-16.0 [place] [address]-07-26 18:34:00 Test Item Value Reference Range Interpretation Comments Hct (test code = Hct) 28.2 36.0-48.0 [place] [address]-07-26 18:34:00 Test Item Value Reference Range Interpretation Comments MCV (test code = MCV) 77.5 80.0-98.0 [place] [address]-07-26 18:34:00 Test Item Value Reference Range Interpretation Comments MCH (test code = MCH) 24.0 pg 27.0-31.0 [place] 778932-07-26 18:34:00 Test Item Value Reference Range Interpretation Comments MCHC (test code = MCHC) 30.9 32.0-36.0 [place] [address]-07-26 18:34:00 Test Item Value Reference Range Interpretation Comments RDW (test code = RDW) 21.2 11.5-14.5 [place] [address]-07-26 18:34:00 Test Item Value Reference Range Interpretation Comments Platelet (test code = Platelet) 324 133-450 [place] 778932-07-26 18:34:00 Test Item Value Reference Range Interpretation Comments MPV (test code = MPV) 7.6 7.4-10.4 [place] [address]-07-26 18:34:00 Test Item Value Reference Range Interpretation Comments Plt Morph (test code = Normal (06/14/22 1:34 Plt Morph) PM) [address]07-26 18:34:00 Test Item Value Reference Range Interpretation Comments Segs (test code = Segs) 89.0 45.0-75.0 [place] [address]-07-26 18:34:00 Test Item Value Reference Range Interpretation Comments Bands (test code = 3.0 See_Comment [Automat ed message] The Bands) system which ge nerated this result transmit lavon reference range : <=11.0. The reference r hugo was not used to interpr et this result as dionne l/abnormal. [place] 778932-07-26 18:34:00 Test Item Value Reference Range Interpretation Comments Lymphocytes (test code = Lymphocytes) 8.0 20.0-40.0 [place] [address]-07-26 18:34:00 Test Item Value Reference Range Interpretation Comments Monocytes (test code = Monocytes) 0.0 2.0-12.0 [place] [address]-07-26 18:34:00 Test Item Value Reference Range Interpretation Comments Neutrophils # (test code = Neutrophils 12.4 1.5-8.1 #) [place] [address]-07-26 18:34:00 Test Item Value Reference Range Interpretation Comments Lymphocytes # (test code = Lymphocytes 1.1 1.0-5.5 #) [place] [address]-07-26 18:34:00 Test Item Value Reference Range Interpretation Comments Monocytes # (test code 0.0 See_Comment [Aut omated message] The = Monocytes #) system which generated this result tra nsmitted reference range : <=0.8. The reference r hugo was not used to int erpret this result as normal/abnormal . [place] 778932-07-26 18:34:00 Test Item Value Reference Range Interpretation Comments Hypochrom (test code = 1+ (06/14/22 1:34 PM) Hypochrom) [place] [address]-07-26 18:34:00 Test Item Value Reference Range Interpretation Comments Glucose Lvl (test code = Glucose Lvl) 110 70-99 [place] [address]-07-26 18:34:00 Test Item Value Reference Range Interpretation Comments BUN (test code = BUN) 28 - [place] 852652-07-26 18:34:00 Test Item Value Reference Range Interpretation Comments Creatinine Lvl (test code = Creatinine 1.05 0.50-1.40 Lvl) [place] 852652-07-26 18:34:00 Test Item Value Reference Range Interpretation Comments Sodium Lvl (test code = Sodium Lvl) 132 135-145 [place] 852652-07-26 18:34:00 Test Item Value Reference Range Interpretation Comments Potassium Lvl (test code = Potassium 4.4 3.5-5.1 Lvl) [place] 852652-07-26 18:34:00 Test Item Value Reference Range Interpretation Comments Chloride Lvl (test code = Chloride Lvl) 96 95-109 [place] 852652-07-26 18:34:00 Test Item Value Reference Range Interpretation Comments CO2 (test code = CO2) 27 24-32 [place] 852652-07-26 18:34:00 Test Item Value Reference Range Interpretation Comments Calcium Lvl (test code = Calcium Lvl) 8.5 8.5-10.5 [place] 852652-07-26 18:34:00 Test Item Value Reference Range Interpretation Comments AGAP (test code = AGAP) 13.4 10.0-20.0 [place] 852652-07-26 18:34:00 Test Item Value Reference Range Interpretation Comments eGFR (test code = eGFR) 51 [place] 778932-07-26 18:34:00 Test Item Value Reference Range Interpretation Comments WBC (test code = WBC) 13.5 3.7-10.4 [place] 778932-07-26 18:34:00 Test Item Value Reference Range Interpretation Comments RBC (test code = RBC) 3.63 4.20-5.40 [place] 778932-07-26 18:34:00 Test Item Value Reference Range Interpretation Comments Hgb (test code = Hgb) 8.7 12.0-16.0 [place] 778932-07-26 18:34:00 Test Item Value Reference Range Interpretation Comments Hct (test code = Hct) 28.2 36.0-48.0 [place] 778932-07-26 18:34:00 Test Item Value Reference Range Interpretation Comments MCV (test code = MCV) 77.5 80.0-98.0 [place] 778932-07-26 18:34:00 Test Item Value Reference Range Interpretation Comments MCH (test code = MCH) 24.0 pg 27.0-31.0 [place] 778932-07-26 18:34:00 Test Item Value Reference Range Interpretation Comments MCHC (test code = MCHC) 30.9 32.0-36.0 [facility]MowiklmHGZJCYRUPC5381-19-95 18:34:00 Test Item Value Reference Range Interpretation Comments RDW (test code = RDW) 21.2 11.5-14.5 [place] 778932-07-26 18:34:00 Test Item Value Reference Range Interpretation Comments Platelet (test code = Platelet) 324 133-450 [facility] CenterEmtxxldAWFKFCNGLV1923-61-95 18:34:00 Test Item Value Reference Range Interpretation Comments MPV (test code = MPV) 7.6 7.4-10.4 [place] 778932-07-26 18:34:00 Test Item Value Reference Range Interpretation Comments Plt Morph (test code = Normal (06/14/22 1:34 Plt Morph) PM) [place] 778932-07-26 18:34:00 Test Item Value Reference Range Interpretation Comments Segs (test code = Segs) 89.0 45.0-75.0 [facility] CenterJfiumuaDUUUXCIGJJ3808-52-50 18:34:00 Test Item Value Reference Range Interpretation Comments Bands (test code = 3.0 See_Comment [Automat ed message] The Bands) system which ge nerated this result transmit lavon reference range : <=11.0. The reference r hugo was not used to interpr et this result as dionne l/abnormal. [place] 778932-07-26 18:34:00 Test Item Value Reference Range Interpretation Comments Lymphocytes (test code = Lymphocytes) 8.0 20.0-40.0 [place] [address]-07-26 18:34:00 Test Item Value Reference Range Interpretation Comments Monocytes (test code = Monocytes) 0.0 2.0-12.0 [place] [address]-07-26 18:34:00 Test Item Value Reference Range Interpretation Comments Neutrophils # (test code = Neutrophils 12.4 1.5-8.1 #) [address]07-26 18:34:00 Test Item Value Reference Range Interpretation Comments Lymphocytes # (test code = Lymphocytes 1.1 1.0-5.5 #) [place] [address]-07-26 18:34:00 Test Item Value Reference Range Interpretation Comments Monocytes # (test code 0.0 See_Comment [Aut omated message] The = Monocytes #) system which generated this result tra nsmitted reference range : <=0.8. The reference r hugo was not used to int erpret this result as normal/abnormal . [place] 778932-07-26 18:34:00 Test Item Value Reference Range Interpretation Comments Hypochrom (test code = 1+ (06/14/22 1:34 PM) Hypochrom) [place] 852652-07-26 18:34:00 Test Item Value Reference Range Interpretation Comments Glucose Lvl (test code = Glucose Lvl) 110 70-99 [place] 852652-07-26 18:34:00 Test Item Value Reference Range Interpretation Comments BUN (test code = BUN) 28 7-22 [place] 852652-07-26 18:34:00 Test Item Value Reference Range Interpretation Comments Creatinine Lvl (test code = Creatinine 1.05 0.50-1.40 Lvl) [place] 852652-07-26 18:34:00 Test Item Value Reference Range Interpretation Comments Sodium Lvl (test code = Sodium Lvl) 132 135-145 [place] 852652-07-26 18:34:00 Test Item Value Reference Range Interpretation Comments Potassium Lvl (test code = Potassium 4.4 3.5-5.1 Lvl) [place] 852652-07-26 18:34:00 Test Item Value Reference Range Interpretation Comments Chloride Lvl (test code = Chloride Lvl) 96 95-109 [place] 852652-07-26 18:34:00 Test Item Value Reference Range Interpretation Comments CO2 (test code = CO2) 27 24-32 [place] 852652-07-26 18:34:00 Test Item Value Reference Range Interpretation Comments Calcium Lvl (test code = Calcium Lvl) 8.5 8.5-10.5 [place] 852652-07-26 18:34:00 Test Item Value Reference Range Interpretation Comments AGAP (test code = AGAP) 13.4 10.0-20.0 [place] 852652-07-26 18:34:00 Test Item Value Reference Range Interpretation Comments eGFR (test code = eGFR) 51 [place] 778932-07-26 18:34:00 Test Item Value Reference Range Interpretation Comments WBC (test code = WBC) 13.5 3.7-10.4 [place] 778932-07-26 18:34:00 Test Item Value Reference Range Interpretation Comments RBC (test code = RBC) 3.63 4.20-5.40 [place] 778932-07-26 18:34:00 Test Item Value Reference Range Interpretation Comments Hgb (test code = Hgb) 8.7 12.0-16.0 [place] [address]-07-26 18:34:00 Test Item Value Reference Range Interpretation Comments Hct (test code = Hct) 28.2 36.0-48.0 [place] [address]-07-26 18:34:00 Test Item Value Reference Range Interpretation Comments MCV (test code = MCV) 77.5 80.0-98.0 [place] [address]-07-26 18:34:00 Test Item Value Reference Range Interpretation Comments MCH (test code = MCH) 24.0 pg 27.0-31.0 [place] 778932-07-26 18:34:00 Test Item Value Reference Range Interpretation Comments MCHC (test code = MCHC) 30.9 32.0-36.0 [place] [address]-07-26 18:34:00 Test Item Value Reference Range Interpretation Comments RDW (test code = RDW) 21.2 11.5-14.5 [place] [address]-07-26 18:34:00 Test Item Value Reference Range Interpretation Comments Platelet (test code = Platelet) 324 133-450 [place] 778932-07-26 18:34:00 Test Item Value Reference Range Interpretation Comments MPV (test code = MPV) 7.6 7.4-10.4 [place] [address]-07-26 18:34:00 Test Item Value Reference Range Interpretation Comments Plt Morph (test code = Normal (06/14/22 1:34 Plt Morph) PM) [address]07-26 18:34:00 Test Item Value Reference Range Interpretation Comments Segs (test code = Segs) 89.0 45.0-75.0 [place] [address]-07-26 18:34:00 Test Item Value Reference Range Interpretation Comments Bands (test code = 3.0 See_Comment [Automat ed message] The Bands) system which ge nerated this result transmit lavon reference range : <=11.0. The reference r hugo was not used to interpr et this result as dionne l/abnormal. [place] 778932-07-26 18:34:00 Test Item Value Reference Range Interpretation Comments Lymphocytes (test code = Lymphocytes) 8.0 20.0-40.0 [place] [address]-07-26 18:34:00 Test Item Value Reference Range Interpretation Comments Monocytes (test code = Monocytes) 0.0 2.0-12.0 [place] [address]-07-26 18:34:00 Test Item Value Reference Range Interpretation Comments Neutrophils # (test code = Neutrophils 12.4 1.5-8.1 #) [place] [address]-07-26 18:34:00 Test Item Value Reference Range Interpretation Comments Lymphocytes # (test code = Lymphocytes 1.1 1.0-5.5 #) [place] [address]-07-26 18:34:00 Test Item Value Reference Range Interpretation Comments Monocytes # (test code 0.0 See_Comment [Aut omated message] The = Monocytes #) system which generated this result tra nsmitted reference range : <=0.8. The reference r hugo was not used to int erpret this result as normal/abnormal . [place] 778932-07-26 18:34:00 Test Item Value Reference Range Interpretation Comments Hypochrom (test code = 1+ (06/14/22 1:34 PM) Hypochrom) [place] [address]-07-26 18:34:00 Test Item Value Reference Range Interpretation Comments Glucose Lvl (test code = Glucose Lvl) 110 70-99 [place] [address]-07-26 18:34:00 Test Item Value Reference Range Interpretation Comments BUN (test code = BUN) 28 - [place] 852652-07-26 18:34:00 Test Item Value Reference Range Interpretation Comments Creatinine Lvl (test code = Creatinine 1.05 0.50-1.40 Lvl) [place] 852652-07-26 18:34:00 Test Item Value Reference Range Interpretation Comments Sodium Lvl (test code = Sodium Lvl) 132 135-145 [place] 852652-07-26 18:34:00 Test Item Value Reference Range Interpretation Comments Potassium Lvl (test code = Potassium 4.4 3.5-5.1 Lvl) [place] 852652-07-26 18:34:00 Test Item Value Reference Range Interpretation Comments Chloride Lvl (test code = Chloride Lvl) 96 95-109 [place] 852652-07-26 18:34:00 Test Item Value Reference Range Interpretation Comments CO2 (test code = CO2) 27 24-32 [place] 852652-07-26 18:34:00 Test Item Value Reference Range Interpretation Comments Calcium Lvl (test code = Calcium Lvl) 8.5 8.5-10.5 [place] 852652-07-26 18:34:00 Test Item Value Reference Range Interpretation Comments AGAP (test code = AGAP) 13.4 10.0-20.0 [place] 852652-07-26 18:34:00 Test Item Value Reference Range Interpretation Comments eGFR (test code = eGFR) 51 [place] 778932-07-26 18:34:00 Test Item Value Reference Range Interpretation Comments WBC (test code = WBC) 13.5 3.7-10.4 [place] 778932-07-26 18:34:00 Test Item Value Reference Range Interpretation Comments RBC (test code = RBC) 3.63 4.20-5.40 [place] 778932-07-26 18:34:00 Test Item Value Reference Range Interpretation Comments Hgb (test code = Hgb) 8.7 12.0-16.0 [place] 778932-07-26 18:34:00 Test Item Value Reference Range Interpretation Comments Hct (test code = Hct) 28.2 36.0-48.0 [place] 778932-07-26 18:34:00 Test Item Value Reference Range Interpretation Comments MCV (test code = MCV) 77.5 80.0-98.0 [place] 778932-07-26 18:34:00 Test Item Value Reference Range Interpretation Comments MCH (test code = MCH) 24.0 pg 27.0-31.0 [place] 778932-07-26 18:34:00 Test Item Value Reference Range Interpretation Comments MCHC (test code = MCHC) 30.9 32.0-36.0 [id number] Test Item Value Reference Range Interpretation Comments RDW (test code = RDW) 21.2 11.5-14.5 [place] 778932-07-26 18:34:00 Test Item Value Reference Range Interpretation Comments Platelet (test code = Platelet) 324 133-450 [facility]ndtCNLFAULXMP4760[facility]36-48 18:34:00 Test Item Value Reference Range Interpretation Comments MPV (test code = MPV) 7.6 7.4-10.4 [place] 778932-07-26 18:34:00 Test Item Value Reference Range Interpretation Comments Plt Morph (test code = Normal (06/14/22 1:34 Plt Morph) PM) [place] 778932-07-26 18:34:00 Test Item Value Reference Range Interpretation Comments Segs (test code = Segs) 89.0 45.0-75.0 [id number] 18:34:00 Test Item Value Reference Range Interpretation Comments Bands (test code = 3.0 See_Comment [Automat ed message] The Bands) system which ge nerated this result transmit lavon reference range : <=11.0. The reference r hugo was not used to interpr et this result as dionne l/abnormal. [place] 778932-07-26 18:34:00 Test Item Value Reference Range Interpretation Comments Lymphocytes (test code = Lymphocytes) 8.0 20.0-40.0 [place] [address]-07-26 18:34:00 Test Item Value Reference Range Interpretation Comments Monocytes (test code = Monocytes) 0.0 2.0-12.0 [place] [address]-07-26 18:34:00 Test Item Value Reference Range Interpretation Comments Neutrophils # (test code = Neutrophils 12.4 1.5-8.1 #) [address]07-26 18:34:00 Test Item Value Reference Range Interpretation Comments Lymphocytes # (test code = Lymphocytes 1.1 1.0-5.5 #) [place] [address]-07-26 18:34:00 Test Item Value Reference Range Interpretation Comments Monocytes # (test code 0.0 See_Comment [Aut omated message] The = Monocytes #) system which generated this result tra nsmitted reference range : <=0.8. The reference r hugo was not used to int erpret this result as normal/abnormal . [place] 778932-07-26 18:34:00 Test Item Value Reference Range Interpretation Comments Hypochrom (test code = 1+ (06/14/22 1:34 PM) Hypochrom) [place] 852652-07-26 18:34:00 Test Item Value Reference Range Interpretation Comments Glucose Lvl (test code = Glucose Lvl) 110 70-99 [place] 852652-07-26 18:34:00 Test Item Value Reference Range Interpretation Comments BUN (test code = BUN) 28 7-22 [place] 852652-07-26 18:34:00 Test Item Value Reference Range Interpretation Comments Creatinine Lvl (test code = Creatinine 1.05 0.50-1.40 Lvl) [place] 852652-07-26 18:34:00 Test Item Value Reference Range Interpretation Comments Sodium Lvl (test code = Sodium Lvl) 132 135-145 [place] 852652-07-26 18:34:00 Test Item Value Reference Range Interpretation Comments Potassium Lvl (test code = Potassium 4.4 3.5-5.1 Lvl) [place] 852652-07-26 18:34:00 Test Item Value Reference Range Interpretation Comments Chloride Lvl (test code = Chloride Lvl) 96 95-109 [place] 852652-07-26 18:34:00 Test Item Value Reference Range Interpretation Comments CO2 (test code = CO2) 27 24-32 [place] 852652-07-26 18:34:00 Test Item Value Reference Range Interpretation Comments Calcium Lvl (test code = Calcium Lvl) 8.5 8.5-10.5 [place] 852652-07-26 18:34:00 Test Item Value Reference Range Interpretation Comments AGAP (test code = AGAP) 13.4 10.0-20.0 [place] 852652-07-26 18:34:00 Test Item Value Reference Range Interpretation Comments eGFR (test code = eGFR) 51 [place] 778932-07-26 18:34:00 Test Item Value Reference Range Interpretation Comments WBC (test code = WBC) 13.5 3.7-10.4 [place] 778932-07-26 18:34:00 Test Item Value Reference Range Interpretation Comments RBC (test code = RBC) 3.63 4.20-5.40 [place] 778932-07-26 18:34:00 Test Item Value Reference Range Interpretation Comments Hgb (test code = Hgb) 8.7 12.0-16.0 [place] [address]-07-26 18:34:00 Test Item Value Reference Range Interpretation Comments Hct (test code = Hct) 28.2 36.0-48.0 [place] [address]-07-26 18:34:00 Test Item Value Reference Range Interpretation Comments MCV (test code = MCV) 77.5 80.0-98.0 [place] [address]-07-26 18:34:00 Test Item Value Reference Range Interpretation Comments MCH (test code = MCH) 24.0 pg 27.0-31.0 [place] 778932-07-26 18:34:00 Test Item Value Reference Range Interpretation Comments MCHC (test code = MCHC) 30.9 32.0-36.0 [place] [address]-07-26 18:34:00 Test Item Value Reference Range Interpretation Comments RDW (test code = RDW) 21.2 11.5-14.5 [place] [address]-07-26 18:34:00 Test Item Value Reference Range Interpretation Comments Platelet (test code = Platelet) 324 133-450 [place] 778932-07-26 18:34:00 Test Item Value Reference Range Interpretation Comments MPV (test code = MPV) 7.6 7.4-10.4 [place] [address]-07-26 18:34:00 Test Item Value Reference Range Interpretation Comments Plt Morph (test code = Normal (06/14/22 1:34 Plt Morph) PM) [address]07-26 18:34:00 Test Item Value Reference Range Interpretation Comments Segs (test code = Segs) 89.0 45.0-75.0 [place] [address]-07-26 18:34:00 Test Item Value Reference Range Interpretation Comments Bands (test code = 3.0 See_Comment [Automat ed message] The Bands) system which ge nerated this result transmit lavon reference range : <=11.0. The reference r hugo was not used to interpr et this result as dionne l/abnormal. [place] 778932-07-26 18:34:00 Test Item Value Reference Range Interpretation Comments Lymphocytes (test code = Lymphocytes) 8.0 20.0-40.0 [place] [address]-07-26 18:34:00 Test Item Value Reference Range Interpretation Comments Monocytes (test code = Monocytes) 0.0 2.0-12.0 [place] [address]-07-26 18:34:00 Test Item Value Reference Range Interpretation Comments Neutrophils # (test code = Neutrophils 12.4 1.5-8.1 #) [place] [address]-07-26 18:34:00 Test Item Value Reference Range Interpretation Comments Lymphocytes # (test code = Lymphocytes 1.1 1.0-5.5 #) [place] [address]-07-26 18:34:00 Test Item Value Reference Range Interpretation Comments Monocytes # (test code 0.0 See_Comment [Aut omated message] The = Monocytes #) system which generated this result tra nsmitted reference range : <=0.8. The reference r hugo was not used to int erpret this result as normal/abnormal . [place] 778932-07-26 18:34:00 Test Item Value Reference Range Interpretation Comments Hypochrom (test code = 1+ (06/14/22 1:34 PM) Hypochrom) [place] [address]-07-26 18:34:00 Test Item Value Reference Range Interpretation Comments Glucose Lvl (test code = Glucose Lvl) 110 70-99 [place] [address]-07-26 18:34:00 Test Item Value Reference Range Interpretation Comments BUN (test code = BUN) 28 - [place] 852652-07-26 18:34:00 Test Item Value Reference Range Interpretation Comments Creatinine Lvl (test code = Creatinine 1.05 0.50-1.40 Lvl) [place] 852652-07-26 18:34:00 Test Item Value Reference Range Interpretation Comments Sodium Lvl (test code = Sodium Lvl) 132 135-145 [place] 852652-07-26 18:34:00 Test Item Value Reference Range Interpretation Comments Potassium Lvl (test code = Potassium 4.4 3.5-5.1 Lvl) [place] 852652-07-26 18:34:00 Test Item Value Reference Range Interpretation Comments Chloride Lvl (test code = Chloride Lvl) 96 95-109 [place] 852652-07-26 18:34:00 Test Item Value Reference Range Interpretation Comments CO2 (test code = CO2) 27 24-32 [place] 852652-07-26 18:34:00 Test Item Value Reference Range Interpretation Comments Calcium Lvl (test code = Calcium Lvl) 8.5 8.5-10.5 [place] 852652-07-26 18:34:00 Test Item Value Reference Range Interpretation Comments AGAP (test code = AGAP) 13.4 10.0-20.0 [place] 852652-07-26 18:34:00 Test Item Value Reference Range Interpretation Comments eGFR (test code = eGFR) 51 [place] 778932-07-26 18:34:00 Test Item Value Reference Range Interpretation Comments WBC (test code = WBC) 13.5 3.7-10.4 [place] 778932-07-26 18:34:00 Test Item Value Reference Range Interpretation Comments RBC (test code = RBC) 3.63 4.20-5.40 [place] 778932-07-26 18:34:00 Test Item Value Reference Range Interpretation Comments Hgb (test code = Hgb) 8.7 12.0-16.0 [place] 778932-07-26 18:34:00 Test Item Value Reference Range Interpretation Comments Hct (test code = Hct) 28.2 36.0-48.0 [place] 778932-07-26 18:34:00 Test Item Value Reference Range Interpretation Comments MCV (test code = MCV) 77.5 80.0-98.0 [place] 778932-07-26 18:34:00 Test Item Value Reference Range Interpretation Comments MCH (test code = MCH) 24.0 pg 27.0-31.0 [place] 778932-07-26 18:34:00 Test Item Value Reference Range Interpretation Comments MCHC (test code = MCHC) 30.9 32.0-36.0 [facility]lexzelKWBFTQAUUC4870[facility]10-50 18:34:00 Test Item Value Reference Range Interpretation Comments RDW (test code = RDW) 21.2 11.5-14.5 [place] 778932-07-26 18:34:00 Test Item Value Reference Range Interpretation Comments Platelet (test code = Platelet) 324 133-450 [facility] CenterKsxqpuiWFOQEXLOXE2918-76-88 18:34:00 Test Item Value Reference Range Interpretation Comments MPV (test code = MPV) 7.6 7.4-10.4 [place] 778932-07-26 18:34:00 Test Item Value Reference Range Interpretation Comments Plt Morph (test code = Normal (06/14/22 1:34 Plt Morph) PM) [place] 778932-07-26 18:34:00 Test Item Value Reference Range Interpretation Comments Segs (test code = Segs) 89.0 45.0-75.0 [facility] CenterGzcrvafTWZOOSNMQY0618-94-68 18:34:00 Test Item Value Reference Range Interpretation Comments Bands (test code = 3.0 See_Comment [Automat ed message] The Bands) system which ge nerated this result transmit lavon reference range : <=11.0. The reference r hugo was not used to interpr et this result as dionne l/abnormal. [place] 778932-07-26 18:34:00 Test Item Value Reference Range Interpretation Comments Lymphocytes (test code = Lymphocytes) 8.0 20.0-40.0 [place] [address]-07-26 18:34:00 Test Item Value Reference Range Interpretation Comments Monocytes (test code = Monocytes) 0.0 2.0-12.0 [place] [address]-07-26 18:34:00 Test Item Value Reference Range Interpretation Comments Neutrophils # (test code = Neutrophils 12.4 1.5-8.1 #) [address]07-26 18:34:00 Test Item Value Reference Range Interpretation Comments Lymphocytes # (test code = Lymphocytes 1.1 1.0-5.5 #) [place] [address]-07-26 18:34:00 Test Item Value Reference Range Interpretation Comments Monocytes # (test code 0.0 See_Comment [Aut omated message] The = Monocytes #) system which generated this result tra nsmitted reference range : <=0.8. The reference r hugo was not used to int erpret this result as normal/abnormal . [place] 778932-07-26 18:34:00 Test Item Value Reference Range Interpretation Comments Hypochrom (test code = 1+ (06/14/22 1:34 PM) Hypochrom) [place] 852652-07-26 18:34:00 Test Item Value Reference Range Interpretation Comments Glucose Lvl (test code = Glucose Lvl) 110 70-99 [place] 852652-07-26 18:34:00 Test Item Value Reference Range Interpretation Comments BUN (test code = BUN) 28 7-22 [place] 852652-07-26 18:34:00 Test Item Value Reference Range Interpretation Comments Creatinine Lvl (test code = Creatinine 1.05 0.50-1.40 Lvl) [place] 852652-07-26 18:34:00 Test Item Value Reference Range Interpretation Comments Sodium Lvl (test code = Sodium Lvl) 132 135-145 [place] 852652-07-26 18:34:00 Test Item Value Reference Range Interpretation Comments Potassium Lvl (test code = Potassium 4.4 3.5-5.1 Lvl) [place] 852652-07-26 18:34:00 Test Item Value Reference Range Interpretation Comments Chloride Lvl (test code = Chloride Lvl) 96 95-109 [place] 852652-07-26 18:34:00 Test Item Value Reference Range Interpretation Comments CO2 (test code = CO2) 27 24-32 [place] 852652-07-26 18:34:00 Test Item Value Reference Range Interpretation Comments Calcium Lvl (test code = Calcium Lvl) 8.5 8.5-10.5 [place] 852652-07-26 18:34:00 Test Item Value Reference Range Interpretation Comments AGAP (test code = AGAP) 13.4 10.0-20.0 [place] 852652-07-26 18:34:00 Test Item Value Reference Range Interpretation Comments eGFR (test code = eGFR) 51 [place] 778932-07-26 18:34:00 Test Item Value Reference Range Interpretation Comments WBC (test code = WBC) 13.5 3.7-10.4 [place] 778932-07-26 18:34:00 Test Item Value Reference Range Interpretation Comments RBC (test code = RBC) 3.63 4.20-5.40 [place] 778932-07-26 18:34:00 Test Item Value Reference Range Interpretation Comments Hgb (test code = Hgb) 8.7 12.0-16.0 [place] [address]-07-26 18:34:00 Test Item Value Reference Range Interpretation Comments Hct (test code = Hct) 28.2 36.0-48.0 [place] [address]-07-26 18:34:00 Test Item Value Reference Range Interpretation Comments MCV (test code = MCV) 77.5 80.0-98.0 [place] [address]-07-26 18:34:00 Test Item Value Reference Range Interpretation Comments MCH (test code = MCH) 24.0 pg 27.0-31.0 [place] 778932-07-26 18:34:00 Test Item Value Reference Range Interpretation Comments MCHC (test code = MCHC) 30.9 32.0-36.0 [place] [address]-07-26 18:34:00 Test Item Value Reference Range Interpretation Comments RDW (test code = RDW) 21.2 11.5-14.5 [place] [address]-07-26 18:34:00 Test Item Value Reference Range Interpretation Comments Platelet (test code = Platelet) 324 133-450 [place] 778932-07-26 18:34:00 Test Item Value Reference Range Interpretation Comments MPV (test code = MPV) 7.6 7.4-10.4 [place] [address]-07-26 18:34:00 Test Item Value Reference Range Interpretation Comments Plt Morph (test code = Normal (06/14/22 1:34 Plt Morph) PM) [address]07-26 18:34:00 Test Item Value Reference Range Interpretation Comments Segs (test code = Segs) 89.0 45.0-75.0 [place] [address]-07-26 18:34:00 Test Item Value Reference Range Interpretation Comments Bands (test code = 3.0 See_Comment [Automat ed message] The Bands) system which ge nerated this result transmit lavon reference range : <=11.0. The reference r hugo was not used to interpr et this result as dionne l/abnormal. [place] 778932-07-26 18:34:00 Test Item Value Reference Range Interpretation Comments Lymphocytes (test code = Lymphocytes) 8.0 20.0-40.0 [place] [address]-07-26 18:34:00 Test Item Value Reference Range Interpretation Comments Monocytes (test code = Monocytes) 0.0 2.0-12.0 [place] [address]-07-26 18:34:00 Test Item Value Reference Range Interpretation Comments Neutrophils # (test code = Neutrophils 12.4 1.5-8.1 #) [place] [address]-07-26 18:34:00 Test Item Value Reference Range Interpretation Comments Lymphocytes # (test code = Lymphocytes 1.1 1.0-5.5 #) [place] [address]-07-26 18:34:00 Test Item Value Reference Range Interpretation Comments Monocytes # (test code 0.0 See_Comment [Aut omated message] The = Monocytes #) system which generated this result tra nsmitted reference range : <=0.8. The reference r hugo was not used to int erpret this result as normal/abnormal . [place] 778932-07-26 18:34:00 Test Item Value Reference Range Interpretation Comments Hypochrom (test code = 1+ (06/14/22 1:34 PM) Hypochrom) [place] [address]-07-26 18:34:00 Test Item Value Reference Range Interpretation Comments Glucose Lvl (test code = Glucose Lvl) 110 70-99 [place] [address]-07-26 18:34:00 Test Item Value Reference Range Interpretation Comments BUN (test code = BUN) 28 - [place] 852652-07-26 18:34:00 Test Item Value Reference Range Interpretation Comments Creatinine Lvl (test code = Creatinine 1.05 0.50-1.40 Lvl) [place] 852652-07-26 18:34:00 Test Item Value Reference Range Interpretation Comments Sodium Lvl (test code = Sodium Lvl) 132 135-145 [place] 852652-07-26 18:34:00 Test Item Value Reference Range Interpretation Comments Potassium Lvl (test code = Potassium 4.4 3.5-5.1 Lvl) [place] 852652-07-26 18:34:00 Test Item Value Reference Range Interpretation Comments Chloride Lvl (test code = Chloride Lvl) 96 95-109 [place] 852652-07-26 18:34:00 Test Item Value Reference Range Interpretation Comments CO2 (test code = CO2) 27 24-32 [place] 852652-07-26 18:34:00 Test Item Value Reference Range Interpretation Comments Calcium Lvl (test code = Calcium Lvl) 8.5 8.5-10.5 [place] 852652-07-26 18:34:00 Test Item Value Reference Range Interpretation Comments AGAP (test code = AGAP) 13.4 10.0-20.0 [place] 852652-07-26 18:34:00 Test Item Value Reference Range Interpretation Comments eGFR (test code = eGFR) 51 [place] 778932-07-26 18:34:00 Test Item Value Reference Range Interpretation Comments WBC (test code = WBC) 13.5 3.7-10.4 [place] 778932-07-26 18:34:00 Test Item Value Reference Range Interpretation Comments RBC (test code = RBC) 3.63 4.20-5.40 [place] 778932-07-26 18:34:00 Test Item Value Reference Range Interpretation Comments Hgb (test code = Hgb) 8.7 12.0-16.0 [place] 778932-07-26 18:34:00 Test Item Value Reference Range Interpretation Comments Hct (test code = Hct) 28.2 36.0-48.0 [place] 778932-07-26 18:34:00 Test Item Value Reference Range Interpretation Comments MCV (test code = MCV) 77.5 80.0-98.0 [place] 778932-07-26 18:34:00 Test Item Value Reference Range Interpretation Comments MCH (test code = MCH) 24.0 pg 27.0-31.0 [place] 778932-07-26 18:34:00 Test Item Value Reference Range Interpretation Comments MCHC (test code = MCHC) 30.9 32.0-36.0 [facility] 18:34:00 Test Item Value Reference Range Interpretation Comments RDW (test code = RDW) 21.2 11.5-14.5 [place] 778932-07-26 18:34:00 Test Item Value Reference Range Interpretation Comments Platelet (test code = Platelet) 324 133-450 [facility]BbwpbcfFPHAXRJWHF8675-50-22 18:34:00 Test Item Value Reference Range Interpretation Comments MPV (test code = MPV) 7.6 7.4-10.4 [place] 778932-07-26 18:34:00 Test Item Value Reference Range Interpretation Comments Plt Morph (test code = Normal (06/14/22 1:34 Plt Morph) PM) [place] 778932-07-26 18:34:00 Test Item Value Reference Range Interpretation Comments Segs (test code = Segs) 89.0 45.0-75.0 [facility] CenterZsfibmyOZAWCZWOWD4135-39-55 18:34:00 Test Item Value Reference Range Interpretation Comments Bands (test code = 3.0 See_Comment [Automat ed message] The Bands) system which ge nerated this result transmit lavon reference range : <=11.0. The reference r hugo was not used to interpr et this result as dionne l/abnormal. [place] 778932-07-26 18:34:00 Test Item Value Reference Range Interpretation Comments Lymphocytes (test code = Lymphocytes) 8.0 20.0-40.0 [place] [address]-07-26 18:34:00 Test Item Value Reference Range Interpretation Comments Monocytes (test code = Monocytes) 0.0 2.0-12.0 [place] [address]-07-26 18:34:00 Test Item Value Reference Range Interpretation Comments Neutrophils # (test code = Neutrophils 12.4 1.5-8.1 #) [address]07-26 18:34:00 Test Item Value Reference Range Interpretation Comments Lymphocytes # (test code = Lymphocytes 1.1 1.0-5.5 #) [place] [address]-07-26 18:34:00 Test Item Value Reference Range Interpretation Comments Monocytes # (test code 0.0 See_Comment [Aut omated message] The = Monocytes #) system which generated this result tra nsmitted reference range : <=0.8. The reference r hugo was not used to int erpret this result as normal/abnormal . [place] 778932-07-26 18:34:00 Test Item Value Reference Range Interpretation Comments Hypochrom (test code = 1+ (06/14/22 1:34 PM) Hypochrom) [place] 852652-07-26 18:34:00 Test Item Value Reference Range Interpretation Comments Glucose Lvl (test code = Glucose Lvl) 110 70-99 [place] 852652-07-26 18:34:00 Test Item Value Reference Range Interpretation Comments BUN (test code = BUN) 28 7-22 [place] 852652-07-26 18:34:00 Test Item Value Reference Range Interpretation Comments Creatinine Lvl (test code = Creatinine 1.05 0.50-1.40 Lvl) [place] 852652-07-26 18:34:00 Test Item Value Reference Range Interpretation Comments Sodium Lvl (test code = Sodium Lvl) 132 135-145 [place] 852652-07-26 18:34:00 Test Item Value Reference Range Interpretation Comments Potassium Lvl (test code = Potassium 4.4 3.5-5.1 Lvl) [place] 852652-07-26 18:34:00 Test Item Value Reference Range Interpretation Comments Chloride Lvl (test code = Chloride Lvl) 96 95-109 [place] 852652-07-26 18:34:00 Test Item Value Reference Range Interpretation Comments CO2 (test code = CO2) 27 24-32 [place] 852652-07-26 18:34:00 Test Item Value Reference Range Interpretation Comments Calcium Lvl (test code = Calcium Lvl) 8.5 8.5-10.5 [place] 852652-07-26 18:34:00 Test Item Value Reference Range Interpretation Comments AGAP (test code = AGAP) 13.4 10.0-20.0 [place] 852652-07-26 18:34:00 Test Item Value Reference Range Interpretation Comments eGFR (test code = eGFR) 51 [place] 778932-07-26 18:34:00 Test Item Value Reference Range Interpretation Comments WBC (test code = WBC) 13.5 3.7-10.4 [place] 778932-07-26 18:34:00 Test Item Value Reference Range Interpretation Comments RBC (test code = RBC) 3.63 4.20-5.40 [place] 778932-07-26 18:34:00 Test Item Value Reference Range Interpretation Comments Hgb (test code = Hgb) 8.7 12.0-16.0 [place] [address]-07-26 18:34:00 Test Item Value Reference Range Interpretation Comments Hct (test code = Hct) 28.2 36.0-48.0 [place] [address]-07-26 18:34:00 Test Item Value Reference Range Interpretation Comments MCV (test code = MCV) 77.5 80.0-98.0 [place] [address]-07-26 18:34:00 Test Item Value Reference Range Interpretation Comments MCH (test code = MCH) 24.0 pg 27.0-31.0 [place] 778932-07-26 18:34:00 Test Item Value Reference Range Interpretation Comments MCHC (test code = MCHC) 30.9 32.0-36.0 [place] [address]-07-26 18:34:00 Test Item Value Reference Range Interpretation Comments RDW (test code = RDW) 21.2 11.5-14.5 [place] [address]-07-26 18:34:00 Test Item Value Reference Range Interpretation Comments Platelet (test code = Platelet) 324 133-450 [place] 778932-07-26 18:34:00 Test Item Value Reference Range Interpretation Comments MPV (test code = MPV) 7.6 7.4-10.4 [place] [address]-07-26 18:34:00 Test Item Value Reference Range Interpretation Comments Plt Morph (test code = Normal (06/14/22 1:34 Plt Morph) PM) [address]07-26 18:34:00 Test Item Value Reference Range Interpretation Comments Segs (test code = Segs) 89.0 45.0-75.0 [place] [address]-07-26 18:34:00 Test Item Value Reference Range Interpretation Comments Bands (test code = 3.0 See_Comment [Automat ed message] The Bands) system which ge nerated this result transmit lavon reference range : <=11.0. The reference r hugo was not used to interpr et this result as dionne l/abnormal. [place] 778932-07-26 18:34:00 Test Item Value Reference Range Interpretation Comments Lymphocytes (test code = Lymphocytes) 8.0 20.0-40.0 [place] [address]-07-26 18:34:00 Test Item Value Reference Range Interpretation Comments Monocytes (test code = Monocytes) 0.0 2.0-12.0 [place] [address]-07-26 18:34:00 Test Item Value Reference Range Interpretation Comments Neutrophils # (test code = Neutrophils 12.4 1.5-8.1 #) [place] [address]-07-26 18:34:00 Test Item Value Reference Range Interpretation Comments Lymphocytes # (test code = Lymphocytes 1.1 1.0-5.5 #) [place] [address]-07-26 18:34:00 Test Item Value Reference Range Interpretation Comments Monocytes # (test code 0.0 See_Comment [Aut omated message] The = Monocytes #) system which generated this result tra nsmitted reference range : <=0.8. The reference r huog was not used to int erpret this result as normal/abnormal . [place] 778932-07-26 18:34:00 Test Item Value Reference Range Interpretation Comments Hypochrom (test code = 1+ (06/14/22 1:34 PM) Hypochrom) [place] [address]-07-26 18:34:00 Test Item Value Reference Range Interpretation Comments Glucose Lvl (test code = Glucose Lvl) 110 70-99 [place] [address]-07-26 18:34:00 Test Item Value Reference Range Interpretation Comments BUN (test code = BUN) 28 - [place] 852652-07-26 18:34:00 Test Item Value Reference Range Interpretation Comments Creatinine Lvl (test code = Creatinine 1.05 0.50-1.40 Lvl) [place] 852652-07-26 18:34:00 Test Item Value Reference Range Interpretation Comments Sodium Lvl (test code = Sodium Lvl) 132 135-145 [place] 852652-07-26 18:34:00 Test Item Value Reference Range Interpretation Comments Potassium Lvl (test code = Potassium 4.4 3.5-5.1 Lvl) [place] 852652-07-26 18:34:00 Test Item Value Reference Range Interpretation Comments Chloride Lvl (test code = Chloride Lvl) 96 95-109 [place] 852652-07-26 18:34:00 Test Item Value Reference Range Interpretation Comments CO2 (test code = CO2) 27 24-32 [place] 852652-07-26 18:34:00 Test Item Value Reference Range Interpretation Comments Calcium Lvl (test code = Calcium Lvl) 8.5 8.5-10.5 [place] 852652-07-26 18:34:00 Test Item Value Reference Range Interpretation Comments AGAP (test code = AGAP) 13.4 10.0-20.0 [place] 852652-07-26 18:34:00 Test Item Value Reference Range Interpretation Comments eGFR (test code = eGFR) 51 [place] 778932-07-26 18:34:00 Test Item Value Reference Range Interpretation Comments WBC (test code = WBC) 13.5 3.7-10.4 [place] 778932-07-26 18:34:00 Test Item Value Reference Range Interpretation Comments RBC (test code = RBC) 3.63 4.20-5.40 [place] 778932-07-26 18:34:00 Test Item Value Reference Range Interpretation Comments Hgb (test code = Hgb) 8.7 12.0-16.0 [place] 778932-07-26 18:34:00 Test Item Value Reference Range Interpretation Comments Hct (test code = Hct) 28.2 36.0-48.0 [place] 778932-07-26 18:34:00 Test Item Value Reference Range Interpretation Comments MCV (test code = MCV) 77.5 80.0-98.0 [place] 778932-07-26 18:34:00 Test Item Value Reference Range Interpretation Comments MCH (test code = MCH) 24.0 pg 27.0-31.0 [place] 778932-07-26 18:34:00 Test Item Value Reference Range Interpretation Comments MCHC (test code = MCHC) 30.9 32.0-36.0 [facility]JkmnekdOABQNVRCNE8101-38-55 18:34:00 Test Item Value Reference Range Interpretation Comments RDW (test code = RDW) 21.2 11.5-14.5 [place] 778932-07-26 18:34:00 Test Item Value Reference Range Interpretation Comments Platelet (test code = Platelet) 324 133-450 [facility] CenterOnerjosGZJHNHJHOU7682-92-63 18:34:00 Test Item Value Reference Range Interpretation Comments MPV (test code = MPV) 7.6 7.4-10.4 [place] 778932-07-26 18:34:00 Test Item Value Reference Range Interpretation Comments Plt Morph (test code = Normal (06/14/22 1:34 Plt Morph) PM) [place] 778932-07-26 18:34:00 Test Item Value Reference Range Interpretation Comments Segs (test code = Segs) 89.0 45.0-75.0 [facility] CenterJhpliofAMFACQKCIK6907-95-54 18:34:00 Test Item Value Reference Range Interpretation Comments Bands (test code = 3.0 See_Comment [Automat ed message] The Bands) system which ge nerated this result transmit lavon reference range : <=11.0. The reference r hugo was not used to interpr et this result as dionne l/abnormal. [place] 778932-07-26 18:34:00 Test Item Value Reference Range Interpretation Comments Lymphocytes (test code = Lymphocytes) 8.0 20.0-40.0 [place] [address]-07-26 18:34:00 Test Item Value Reference Range Interpretation Comments Monocytes (test code = Monocytes) 0.0 2.0-12.0 [place] [address]-07-26 18:34:00 Test Item Value Reference Range Interpretation Comments Neutrophils # (test code = Neutrophils 12.4 1.5-8.1 #) [address]07-26 18:34:00 Test Item Value Reference Range Interpretation Comments Lymphocytes # (test code = Lymphocytes 1.1 1.0-5.5 #) [place] [address]-07-26 18:34:00 Test Item Value Reference Range Interpretation Comments Monocytes # (test code 0.0 See_Comment [Aut omated message] The = Monocytes #) system which generated this result tra nsmitted reference range : <=0.8. The reference r hugo was not used to int erpret this result as normal/abnormal . [place] 778932-07-26 18:34:00 Test Item Value Reference Range Interpretation Comments Hypochrom (test code = 1+ (06/14/22 1:34 PM) Hypochrom) [place] 852652-07-26 18:34:00 Test Item Value Reference Range Interpretation Comments Glucose Lvl (test code = Glucose Lvl) 110 70-99 [place] 852652-07-26 18:34:00 Test Item Value Reference Range Interpretation Comments BUN (test code = BUN) 28 7-22 [place] 852652-07-26 18:34:00 Test Item Value Reference Range Interpretation Comments Creatinine Lvl (test code = Creatinine 1.05 0.50-1.40 Lvl) [place] 852652-07-26 18:34:00 Test Item Value Reference Range Interpretation Comments Sodium Lvl (test code = Sodium Lvl) 132 135-145 [place] 852652-07-26 18:34:00 Test Item Value Reference Range Interpretation Comments Potassium Lvl (test code = Potassium 4.4 3.5-5.1 Lvl) [place] 852652-07-26 18:34:00 Test Item Value Reference Range Interpretation Comments Chloride Lvl (test code = Chloride Lvl) 96 95-109 [place] 852652-07-26 18:34:00 Test Item Value Reference Range Interpretation Comments CO2 (test code = CO2) 27 24-32 [place] 852652-07-26 18:34:00 Test Item Value Reference Range Interpretation Comments Calcium Lvl (test code = Calcium Lvl) 8.5 8.5-10.5 [place] 852652-07-26 18:34:00 Test Item Value Reference Range Interpretation Comments AGAP (test code = AGAP) 13.4 10.0-20.0 [place] 852652-07-26 18:34:00 Test Item Value Reference Range Interpretation Comments eGFR (test code = eGFR) 51 [place] 778932-07-26 18:34:00 Test Item Value Reference Range Interpretation Comments WBC (test code = WBC) 13.5 3.7-10.4 [place] 778932-07-26 18:34:00 Test Item Value Reference Range Interpretation Comments RBC (test code = RBC) 3.63 4.20-5.40 [place] 778932-07-26 18:34:00 Test Item Value Reference Range Interpretation Comments Hgb (test code = Hgb) 8.7 12.0-16.0 [place] [address]-07-26 18:34:00 Test Item Value Reference Range Interpretation Comments Hct (test code = Hct) 28.2 36.0-48.0 [place] [address]-07-26 18:34:00 Test Item Value Reference Range Interpretation Comments MCV (test code = MCV) 77.5 80.0-98.0 [place] [address]-07-26 18:34:00 Test Item Value Reference Range Interpretation Comments MCH (test code = MCH) 24.0 pg 27.0-31.0 [place] 778932-07-26 18:34:00 Test Item Value Reference Range Interpretation Comments MCHC (test code = MCHC) 30.9 32.0-36.0 [place] [address]-07-26 18:34:00 Test Item Value Reference Range Interpretation Comments RDW (test code = RDW) 21.2 11.5-14.5 [place] [address]-07-26 18:34:00 Test Item Value Reference Range Interpretation Comments Platelet (test code = Platelet) 324 133-450 [place] 778932-07-26 18:34:00 Test Item Value Reference Range Interpretation Comments MPV (test code = MPV) 7.6 7.4-10.4 [place] [address]-07-26 18:34:00 Test Item Value Reference Range Interpretation Comments Plt Morph (test code = Normal (06/14/22 1:34 Plt Morph) PM) [address]07-26 18:34:00 Test Item Value Reference Range Interpretation Comments Segs (test code = Segs) 89.0 45.0-75.0 [place] [address]-07-26 18:34:00 Test Item Value Reference Range Interpretation Comments Bands (test code = 3.0 See_Comment [Automat ed message] The Bands) system which ge nerated this result transmit lavon reference range : <=11.0. The reference r hugo was not used to interpr et this result as dionne l/abnormal. [place] 778932-07-26 18:34:00 Test Item Value Reference Range Interpretation Comments Lymphocytes (test code = Lymphocytes) 8.0 20.0-40.0 [place] [address]-07-26 18:34:00 Test Item Value Reference Range Interpretation Comments Monocytes (test code = Monocytes) 0.0 2.0-12.0 [place] [address]-07-26 18:34:00 Test Item Value Reference Range Interpretation Comments Neutrophils # (test code = Neutrophils 12.4 1.5-8.1 #) [place] [address]-07-26 18:34:00 Test Item Value Reference Range Interpretation Comments Lymphocytes # (test code = Lymphocytes 1.1 1.0-5.5 #) [place] [address]-07-26 18:34:00 Test Item Value Reference Range Interpretation Comments Monocytes # (test code 0.0 See_Comment [Aut omated message] The = Monocytes #) system which generated this result tra nsmitted reference range : <=0.8. The reference r hugo was not used to int erpret this result as normal/abnormal . [place] 778932-07-26 18:34:00 Test Item Value Reference Range Interpretation Comments Hypochrom (test code = 1+ (06/14/22 1:34 PM) Hypochrom) [place] [address]-07-26 18:34:00 Test Item Value Reference Range Interpretation Comments Glucose Lvl (test code = Glucose Lvl) 110 70-99 [place] [address]-07-26 18:34:00 Test Item Value Reference Range Interpretation Comments BUN (test code = BUN) 28 - [place] 852652-07-26 18:34:00 Test Item Value Reference Range Interpretation Comments Creatinine Lvl (test code = Creatinine 1.05 0.50-1.40 Lvl) [place] 852652-07-26 18:34:00 Test Item Value Reference Range Interpretation Comments Sodium Lvl (test code = Sodium Lvl) 132 135-145 [place] 852652-07-26 18:34:00 Test Item Value Reference Range Interpretation Comments Potassium Lvl (test code = Potassium 4.4 3.5-5.1 Lvl) [place] 852652-07-26 18:34:00 Test Item Value Reference Range Interpretation Comments Chloride Lvl (test code = Chloride Lvl) 96 95-109 [place] 852652-07-26 18:34:00 Test Item Value Reference Range Interpretation Comments CO2 (test code = CO2) 27 24-32 [place] 852652-07-26 18:34:00 Test Item Value Reference Range Interpretation Comments Calcium Lvl (test code = Calcium Lvl) 8.5 8.5-10.5 [place] 852652-07-26 18:34:00 Test Item Value Reference Range Interpretation Comments AGAP (test code = AGAP) 13.4 10.0-20.0 [place] 852652-07-26 18:34:00 Test Item Value Reference Range Interpretation Comments eGFR (test code = eGFR) 51 [place] 778932-07-26 18:34:00 Test Item Value Reference Range Interpretation Comments WBC (test code = WBC) 13.5 3.7-10.4 [place] 778932-07-26 18:34:00 Test Item Value Reference Range Interpretation Comments RBC (test code = RBC) 3.63 4.20-5.40 [place] 778932-07-26 18:34:00 Test Item Value Reference Range Interpretation Comments Hgb (test code = Hgb) 8.7 12.0-16.0 [place] 778932-07-26 18:34:00 Test Item Value Reference Range Interpretation Comments Hct (test code = Hct) 28.2 36.0-48.0 [place] 778932-07-26 18:34:00 Test Item Value Reference Range Interpretation Comments MCV (test code = MCV) 77.5 80.0-98.0 [place] 778932-07-26 18:34:00 Test Item Value Reference Range Interpretation Comments MCH (test code = MCH) 24.0 pg 27.0-31.0 [place] 778932-07-26 18:34:00 Test Item Value Reference Range Interpretation Comments MCHC (test code = MCHC) 30.9 32.0-36.0 [facility]qeeyxpQMNMJLWGQX7654-60-07 18:34:00 Test Item Value Reference Range Interpretation Comments RDW (test code = RDW) 21.2 11.5-14.5 [place] 778932-07-26 18:34:00 Test Item Value Reference Range Interpretation Comments Platelet (test code = Platelet) 324 133-450 [facility] CenterShtkwbzMVWDKFXFVT2007-57-10 18:34:00 Test Item Value Reference Range Interpretation Comments MPV (test code = MPV) 7.6 7.4-10.4 [place] 778932-07-26 18:34:00 Test Item Value Reference Range Interpretation Comments Plt Morph (test code = Normal (06/14/22 1:34 Plt Morph) PM) [place] 778932-07-26 18:34:00 Test Item Value Reference Range Interpretation Comments Segs (test code = Segs) 89.0 45.0-75.0 [facility] CenterEhuehvsIRDORBUVBG2438-02-11 18:34:00 Test Item Value Reference Range Interpretation Comments Bands (test code = 3.0 See_Comment [Automat ed message] The Bands) system which ge nerated this result transmit lvaon reference range : <=11.0. The reference r hugo was not used to interpr et this result as dionne l/abnormal. [place] 778932-07-26 18:34:00 Test Item Value Reference Range Interpretation Comments Lymphocytes (test code = Lymphocytes) 8.0 20.0-40.0 [place] [address]-07-26 18:34:00 Test Item Value Reference Range Interpretation Comments Monocytes (test code = Monocytes) 0.0 2.0-12.0 [place] [address]-07-26 18:34:00 Test Item Value Reference Range Interpretation Comments Neutrophils # (test code = Neutrophils 12.4 1.5-8.1 #) [address]07-26 18:34:00 Test Item Value Reference Range Interpretation Comments Lymphocytes # (test code = Lymphocytes 1.1 1.0-5.5 #) [place] [address]-07-26 18:34:00 Test Item Value Reference Range Interpretation Comments Monocytes # (test code 0.0 See_Comment [Aut omated message] The = Monocytes #) system which generated this result tra nsmitted reference range : <=0.8. The reference r hugo was not used to int erpret this result as normal/abnormal . [place] 778932-07-26 18:34:00 Test Item Value Reference Range Interpretation Comments Hypochrom (test code = 1+ (06/14/22 1:34 PM) Hypochrom) [place] 852652-07-26 18:34:00 Test Item Value Reference Range Interpretation Comments Glucose Lvl (test code = Glucose Lvl) 110 70-99 [place] 852652-07-26 18:34:00 Test Item Value Reference Range Interpretation Comments BUN (test code = BUN) 28 7-22 [place] 852652-07-26 18:34:00 Test Item Value Reference Range Interpretation Comments Creatinine Lvl (test code = Creatinine 1.05 0.50-1.40 Lvl) [place] 852652-07-26 18:34:00 Test Item Value Reference Range Interpretation Comments Sodium Lvl (test code = Sodium Lvl) 132 135-145 [place] 852652-07-26 18:34:00 Test Item Value Reference Range Interpretation Comments Potassium Lvl (test code = Potassium 4.4 3.5-5.1 Lvl) [place] 852652-07-26 18:34:00 Test Item Value Reference Range Interpretation Comments Chloride Lvl (test code = Chloride Lvl) 96 95-109 [place] 852652-07-26 18:34:00 Test Item Value Reference Range Interpretation Comments CO2 (test code = CO2) 27 24-32 [place] 852652-07-26 18:34:00 Test Item Value Reference Range Interpretation Comments Calcium Lvl (test code = Calcium Lvl) 8.5 8.5-10.5 [place] 852652-07-26 18:34:00 Test Item Value Reference Range Interpretation Comments AGAP (test code = AGAP) 13.4 10.0-20.0 [place] 852652-07-26 18:34:00 Test Item Value Reference Range Interpretation Comments eGFR (test code = eGFR) 51 [place] 778932-07-26 18:34:00 Test Item Value Reference Range Interpretation Comments WBC (test code = WBC) 13.5 3.7-10.4 [place] 778932-07-26 18:34:00 Test Item Value Reference Range Interpretation Comments RBC (test code = RBC) 3.63 4.20-5.40 [place] 778932-07-26 18:34:00 Test Item Value Reference Range Interpretation Comments Hgb (test code = Hgb) 8.7 12.0-16.0 [place] [address]-07-26 18:34:00 Test Item Value Reference Range Interpretation Comments Hct (test code = Hct) 28.2 36.0-48.0 [place] [address]-07-26 18:34:00 Test Item Value Reference Range Interpretation Comments MCV (test code = MCV) 77.5 80.0-98.0 [place] [address]-07-26 18:34:00 Test Item Value Reference Range Interpretation Comments MCH (test code = MCH) 24.0 pg 27.0-31.0 [place] 778932-07-26 18:34:00 Test Item Value Reference Range Interpretation Comments MCHC (test code = MCHC) 30.9 32.0-36.0 [place] [address]-07-26 18:34:00 Test Item Value Reference Range Interpretation Comments RDW (test code = RDW) 21.2 11.5-14.5 [place] [address]-07-26 18:34:00 Test Item Value Reference Range Interpretation Comments Platelet (test code = Platelet) 324 133-450 [place] 778932-07-26 18:34:00 Test Item Value Reference Range Interpretation Comments MPV (test code = MPV) 7.6 7.4-10.4 [place] [address]-07-26 18:34:00 Test Item Value Reference Range Interpretation Comments Plt Morph (test code = Normal (06/14/22 1:34 Plt Morph) PM) [address]07-26 18:34:00 Test Item Value Reference Range Interpretation Comments Segs (test code = Segs) 89.0 45.0-75.0 [place] [address]-07-26 18:34:00 Test Item Value Reference Range Interpretation Comments Bands (test code = 3.0 See_Comment [Automat ed message] The Bands) system which ge nerated this result transmit lavon reference range : <=11.0. The reference r hugo was not used to interpr et this result as dionne l/abnormal. [place] 778932-07-26 18:34:00 Test Item Value Reference Range Interpretation Comments Lymphocytes (test code = Lymphocytes) 8.0 20.0-40.0 [place] [address]-07-26 18:34:00 Test Item Value Reference Range Interpretation Comments Monocytes (test code = Monocytes) 0.0 2.0-12.0 [place] 12581-07-26 18:34:00 Test Item Value Reference Range Interpretation Comments Neutrophils # (test code = Neutrophils 12.4 1.5-8.1 #) [place] [address]-07-26 18:34:00 Test Item Value Reference Range Interpretation Comments Lymphocytes # (test code = Lymphocytes 1.1 1.0-5.5 #) [place] [address]-07-26 18:34:00 Test Item Value Reference Range Interpretation Comments Monocytes # (test code 0.0 See_Comment [Aut omated message] The = Monocytes #) system which generated this result tra nsmitted reference range : <=0.8. The reference r hugo was not used to int erpret this result as normal/abnormal . [place] 778932-07-26 18:34:00 Test Item Value Reference Range Interpretation Comments Hypochrom (test code = 1+ (06/14/22 1:34 PM) Hypochrom) [place] [address]-07-26 18:34:00 Test Item Value Reference Range Interpretation Comments Glucose Lvl (test code = Glucose Lvl) 110 70-99 [place] [address]-07-26 18:34:00 Test Item Value Reference Range Interpretation Comments BUN (test code = BUN) 28 - [place] 852652-07-26 18:34:00 Test Item Value Reference Range Interpretation Comments Creatinine Lvl (test code = Creatinine 1.05 0.50-1.40 Lvl) [place] 852652-07-26 18:34:00 Test Item Value Reference Range Interpretation Comments Sodium Lvl (test code = Sodium Lvl) 132 135-145 [place] 852652-07-26 18:34:00 Test Item Value Reference Range Interpretation Comments Potassium Lvl (test code = Potassium 4.4 3.5-5.1 Lvl) [place] 852652-07-26 18:34:00 Test Item Value Reference Range Interpretation Comments Chloride Lvl (test code = Chloride Lvl) 96 95-109 [place] 852652-07-26 18:34:00 Test Item Value Reference Range Interpretation Comments CO2 (test code = CO2) 27 24-32 [place] 852652-07-26 18:34:00 Test Item Value Reference Range Interpretation Comments Calcium Lvl (test code = Calcium Lvl) 8.5 8.5-10.5 [place] 852652-07-26 18:34:00 Test Item Value Reference Range Interpretation Comments AGAP (test code = AGAP) 13.4 10.0-20.0 [place] 852652-07-26 18:34:00 Test Item Value Reference Range Interpretation Comments eGFR (test code = eGFR) 51 [place] 778932-07-26 18:34:00 Test Item Value Reference Range Interpretation Comments WBC (test code = WBC) 13.5 3.7-10.4 [place] 778932-07-26 18:34:00 Test Item Value Reference Range Interpretation Comments RBC (test code = RBC) 3.63 4.20-5.40 [place] 778932-07-26 18:34:00 Test Item Value Reference Range Interpretation Comments Hgb (test code = Hgb) 8.7 12.0-16.0 [place] 778932-07-26 18:34:00 Test Item Value Reference Range Interpretation Comments Hct (test code = Hct) 28.2 36.0-48.0 [place] 778932-07-26 18:34:00 Test Item Value Reference Range Interpretation Comments MCV (test code = MCV) 77.5 80.0-98.0 [place] 778932-07-26 18:34:00 Test Item Value Reference Range Interpretation Comments MCH (test code = MCH) 24.0 pg 27.0-31.0 [place] 778932-07-26 18:34:00 Test Item Value Reference Range Interpretation Comments MCHC (test code = MCHC) 30.9 32.0-36.0 [facility]SP[facility]41[facility]72-[facility] 18:34:00 Test Item Value Reference Range Interpretation Comments RDW (test code = RDW) 21.2 11.5-14.5 [place] 778932-07-26 18:34:00 Test Item Value Reference Range Interpretation Comments Platelet (test code = Platelet) 324 133-450 [facility]VwzmtuwKQYPWKKVAO6625-80-86 18:34:00 Test Item Value Reference Range Interpretation Comments MPV (test code = MPV) 7.6 7.4-10.4 [place] 778932-07-26 18:34:00 Test Item Value Reference Range Interpretation Comments Plt Morph (test code = Normal (06/14/22 1:34 Plt Morph) PM) [place] 778932-07-26 18:34:00 Test Item Value Reference Range Interpretation Comments Segs (test code = Segs) 89.0 45.0-75.0 [facility]MiwxbjgQYPEAMOGCY6439-93-54 18:34:00 Test Item Value Reference Range Interpretation Comments Bands (test code = 3.0 See_Comment [Automat ed message] The Bands) system which ge nerated this result transmit lavon reference range : <=11.0. The reference r hugo was not used to interpr et this result as dionne l/abnormal. [place] 778932-07-26 18:34:00 Test Item Value Reference Range Interpretation Comments Lymphocytes (test code = Lymphocytes) 8.0 20.0-40.0 [place] [address]-07-26 18:34:00 Test Item Value Reference Range Interpretation Comments Monocytes (test code = Monocytes) 0.0 2.0-12.0 [place] [address]-07-26 18:34:00 Test Item Value Reference Range Interpretation Comments Neutrophils # (test code = Neutrophils 12.4 1.5-8.1 #) [address]07-26 18:34:00 Test Item Value Reference Range Interpretation Comments Lymphocytes # (test code = Lymphocytes 1.1 1.0-5.5 #) [place] [address]-07-26 18:34:00 Test Item Value Reference Range Interpretation Comments Monocytes # (test code 0.0 See_Comment [Aut omated message] The = Monocytes #) system which generated this result tra nsmitted reference range : <=0.8. The reference r hugo was not used to int erpret this result as normal/abnormal . [place] 778932-07-26 18:34:00 Test Item Value Reference Range Interpretation Comments Hypochrom (test code = 1+ (06/14/22 1:34 PM) Hypochrom) [place] 852652-07-26 18:34:00 Test Item Value Reference Range Interpretation Comments Glucose Lvl (test code = Glucose Lvl) 110 70-99 [place] 852652-07-26 18:34:00 Test Item Value Reference Range Interpretation Comments BUN (test code = BUN) 28 7-22 [place] 852652-07-26 18:34:00 Test Item Value Reference Range Interpretation Comments Creatinine Lvl (test code = Creatinine 1.05 0.50-1.40 Lvl) [place] 852652-07-26 18:34:00 Test Item Value Reference Range Interpretation Comments Sodium Lvl (test code = Sodium Lvl) 132 135-145 [place] 852652-07-26 18:34:00 Test Item Value Reference Range Interpretation Comments Potassium Lvl (test code = Potassium 4.4 3.5-5.1 Lvl) [place] 852652-07-26 18:34:00 Test Item Value Reference Range Interpretation Comments Chloride Lvl (test code = Chloride Lvl) 96 95-109 [place] 852652-07-26 18:34:00 Test Item Value Reference Range Interpretation Comments CO2 (test code = CO2) 27 24-32 [place] 852652-07-26 18:34:00 Test Item Value Reference Range Interpretation Comments Calcium Lvl (test code = Calcium Lvl) 8.5 8.5-10.5 [place] 852652-07-26 18:34:00 Test Item Value Reference Range Interpretation Comments AGAP (test code = AGAP) 13.4 10.0-20.0 [place] 852652-07-26 18:34:00 Test Item Value Reference Range Interpretation Comments eGFR (test code = eGFR) 51 [place] 778932-07-26 18:34:00 Test Item Value Reference Range Interpretation Comments WBC (test code = WBC) 13.5 3.7-10.4 [place] 778932-07-26 18:34:00 Test Item Value Reference Range Interpretation Comments RBC (test code = RBC) 3.63 4.20-5.40 [place] 778932-07-26 18:34:00 Test Item Value Reference Range Interpretation Comments Hgb (test code = Hgb) 8.7 12.0-16.0 [place] [address]-07-26 18:34:00 Test Item Value Reference Range Interpretation Comments Hct (test code = Hct) 28.2 36.0-48.0 [place] [address]-07-26 18:34:00 Test Item Value Reference Range Interpretation Comments MCV (test code = MCV) 77.5 80.0-98.0 [place] [address]-07-26 18:34:00 Test Item Value Reference Range Interpretation Comments MCH (test code = MCH) 24.0 pg 27.0-31.0 [place] 778932-07-26 18:34:00 Test Item Value Reference Range Interpretation Comments MCHC (test code = MCHC) 30.9 32.0-36.0 [place] [address]-07-26 18:34:00 Test Item Value Reference Range Interpretation Comments RDW (test code = RDW) 21.2 11.5-14.5 [place] [address]-07-26 18:34:00 Test Item Value Reference Range Interpretation Comments Platelet (test code = Platelet) 324 133-450 [place] 778932-07-26 18:34:00 Test Item Value Reference Range Interpretation Comments MPV (test code = MPV) 7.6 7.4-10.4 [place] [address]-07-26 18:34:00 Test Item Value Reference Range Interpretation Comments Plt Morph (test code = Normal (06/14/22 1:34 Plt Morph) PM) [address]07-26 18:34:00 Test Item Value Reference Range Interpretation Comments Segs (test code = Segs) 89.0 45.0-75.0 [place] [address]-07-26 18:34:00 Test Item Value Reference Range Interpretation Comments Bands (test code = 3.0 See_Comment [Automat ed message] The Bands) system which ge nerated this result transmit lavon reference range : <=11.0. The reference r hugo was not used to interpr et this result as dionne l/abnormal. [place] 778932-07-26 18:34:00 Test Item Value Reference Range Interpretation Comments Lymphocytes (test code = Lymphocytes) 8.0 20.0-40.0 [place] [address]-07-26 18:34:00 Test Item Value Reference Range Interpretation Comments Monocytes (test code = Monocytes) 0.0 2.0-12.0 [place] [address]-07-26 18:34:00 Test Item Value Reference Range Interpretation Comments Neutrophils # (test code = Neutrophils 12.4 1.5-8.1 #) [place] [address]-07-26 18:34:00 Test Item Value Reference Range Interpretation Comments Lymphocytes # (test code = Lymphocytes 1.1 1.0-5.5 #) [place] [address]-07-26 18:34:00 Test Item Value Reference Range Interpretation Comments Monocytes # (test code 0.0 See_Comment [Aut omated message] The = Monocytes #) system which generated this result tra nsmitted reference range : <=0.8. The reference r hugo was not used to int erpret this result as normal/abnormal . [place] 778932-07-26 18:34:00 Test Item Value Reference Range Interpretation Comments Hypochrom (test code = 1+ (06/14/22 1:34 PM) Hypochrom) [place] [address]-07-26 18:34:00 Test Item Value Reference Range Interpretation Comments Glucose Lvl (test code = Glucose Lvl) 110 70-99 [place] [address]-07-26 18:34:00 Test Item Value Reference Range Interpretation Comments BUN (test code = BUN) 28 - [place] 852652-07-26 18:34:00 Test Item Value Reference Range Interpretation Comments Creatinine Lvl (test code = Creatinine 1.05 0.50-1.40 Lvl) [place] 852652-07-26 18:34:00 Test Item Value Reference Range Interpretation Comments Sodium Lvl (test code = Sodium Lvl) 132 135-145 [place] 852652-07-26 18:34:00 Test Item Value Reference Range Interpretation Comments Potassium Lvl (test code = Potassium 4.4 3.5-5.1 Lvl) [place] 852652-07-26 18:34:00 Test Item Value Reference Range Interpretation Comments Chloride Lvl (test code = Chloride Lvl) 96 95-109 [place] 852652-07-26 18:34:00 Test Item Value Reference Range Interpretation Comments CO2 (test code = CO2) 27 24-32 [place] 852652-07-26 18:34:00 Test Item Value Reference Range Interpretation Comments Calcium Lvl (test code = Calcium Lvl) 8.5 8.5-10.5 [place] 852652-07-26 18:34:00 Test Item Value Reference Range Interpretation Comments AGAP (test code = AGAP) 13.4 10.0-20.0 [place] 852652-07-26 18:34:00 Test Item Value Reference Range Interpretation Comments eGFR (test code = eGFR) 51 [place] 778932-07-26 18:34:00 Test Item Value Reference Range Interpretation Comments WBC (test code = WBC) 13.5 3.7-10.4 [place] 778932-07-26 18:34:00 Test Item Value Reference Range Interpretation Comments RBC (test code = RBC) 3.63 4.20-5.40 [place] 778932-07-26 18:34:00 Test Item Value Reference Range Interpretation Comments Hgb (test code = Hgb) 8.7 12.0-16.0 [place] 778932-07-26 18:34:00 Test Item Value Reference Range Interpretation Comments Hct (test code = Hct) 28.2 36.0-48.0 [place] 778932-07-26 18:34:00 Test Item Value Reference Range Interpretation Comments MCV (test code = MCV) 77.5 80.0-98.0 [place] 778932-07-26 18:34:00 Test Item Value Reference Range Interpretation Comments MCH (test code = MCH) 24.0 pg 27.0-31.0 [place] 778932-07-26 18:34:00 Test Item Value Reference Range Interpretation Comments MCHC (test code = MCHC) 30.9 32.0-36.0 [facility] C[id number] 18:34:00 Test Item Value Reference Range Interpretation Comments RDW (test code = RDW) 21.2 11.5-14.5 [place] 778932-07-26 18:34:00 Test Item Value Reference Range Interpretation Comments Platelet (test code = Platelet) 324 133-450 [facility] CenterLmehubdINQHBDMLRP2072-26-88 18:34:00 Test Item Value Reference Range Interpretation Comments MPV (test code = MPV) 7.6 7.4-10.4 [place] 778932-07-26 18:34:00 Test Item Value Reference Range Interpretation Comments Plt Morph (test code = Normal (06/14/22 1:34 Plt Morph) PM) [place] 778932-07-26 18:34:00 Test Item Value Reference Range Interpretation Comments Segs (test code = Segs) 89.0 45.0-75.0 [facility] CenterAsyuhroGELGBBFVHH6825-82-38 18:34:00 Test Item Value Reference Range Interpretation Comments Bands (test code = 3.0 See_Comment [Automat ed message] The Bands) system which ge nerated this result transmit lavon reference range : <=11.0. The reference r hugo was not used to interpr et this result as dionne l/abnormal. [place] 778932-07-26 18:34:00 Test Item Value Reference Range Interpretation Comments Lymphocytes (test code = Lymphocytes) 8.0 20.0-40.0 [place] [address]-07-26 18:34:00 Test Item Value Reference Range Interpretation Comments Monocytes (test code = Monocytes) 0.0 2.0-12.0 [place] [address]-07-26 18:34:00 Test Item Value Reference Range Interpretation Comments Neutrophils # (test code = Neutrophils 12.4 1.5-8.1 #) [address]07-26 18:34:00 Test Item Value Reference Range Interpretation Comments Lymphocytes # (test code = Lymphocytes 1.1 1.0-5.5 #) [place] [address]-07-26 18:34:00 Test Item Value Reference Range Interpretation Comments Monocytes # (test code 0.0 See_Comment [Aut omated message] The = Monocytes #) system which generated this result tra nsmitted reference range : <=0.8. The reference r hugo was not used to int erpret this result as normal/abnormal . [place] 778932-07-26 18:34:00 Test Item Value Reference Range Interpretation Comments Hypochrom (test code = 1+ (06/14/22 1:34 PM) Hypochrom) [place] 852652-07-26 18:34:00 Test Item Value Reference Range Interpretation Comments Glucose Lvl (test code = Glucose Lvl) 110 70-99 [place] 852652-07-26 18:34:00 Test Item Value Reference Range Interpretation Comments BUN (test code = BUN) 28 7-22 [place] 852652-07-26 18:34:00 Test Item Value Reference Range Interpretation Comments Creatinine Lvl (test code = Creatinine 1.05 0.50-1.40 Lvl) [place] 852652-07-26 18:34:00 Test Item Value Reference Range Interpretation Comments Sodium Lvl (test code = Sodium Lvl) 132 135-145 [place] 852652-07-26 18:34:00 Test Item Value Reference Range Interpretation Comments Potassium Lvl (test code = Potassium 4.4 3.5-5.1 Lvl) [place] 852652-07-26 18:34:00 Test Item Value Reference Range Interpretation Comments Chloride Lvl (test code = Chloride Lvl) 96 95-109 [place] 852652-07-26 18:34:00 Test Item Value Reference Range Interpretation Comments CO2 (test code = CO2) 27 24-32 [place] 852652-07-26 18:34:00 Test Item Value Reference Range Interpretation Comments Calcium Lvl (test code = Calcium Lvl) 8.5 8.5-10.5 [place] 852652-07-26 18:34:00 Test Item Value Reference Range Interpretation Comments AGAP (test code = AGAP) 13.4 10.0-20.0 [place] 852652-07-26 18:34:00 Test Item Value Reference Range Interpretation Comments eGFR (test code = eGFR) 51 [place] 778932-07-26 18:34:00 Test Item Value Reference Range Interpretation Comments WBC (test code = WBC) 13.5 3.7-10.4 [place] 778932-07-26 18:34:00 Test Item Value Reference Range Interpretation Comments RBC (test code = RBC) 3.63 4.20-5.40 [place] 778932-07-26 18:34:00 Test Item Value Reference Range Interpretation Comments Hgb (test code = Hgb) 8.7 12.0-16.0 [place] [address]-07-26 18:34:00 Test Item Value Reference Range Interpretation Comments Hct (test code = Hct) 28.2 36.0-48.0 [place] [address]-07-26 18:34:00 Test Item Value Reference Range Interpretation Comments MCV (test code = MCV) 77.5 80.0-98.0 [place] [address]-07-26 18:34:00 Test Item Value Reference Range Interpretation Comments MCH (test code = MCH) 24.0 pg 27.0-31.0 [place] 778932-07-26 18:34:00 Test Item Value Reference Range Interpretation Comments MCHC (test code = MCHC) 30.9 32.0-36.0 [place] [address]-07-26 18:34:00 Test Item Value Reference Range Interpretation Comments RDW (test code = RDW) 21.2 11.5-14.5 [place] [address]-07-26 18:34:00 Test Item Value Reference Range Interpretation Comments Platelet (test code = Platelet) 324 133-450 [place] 778932-07-26 18:34:00 Test Item Value Reference Range Interpretation Comments MPV (test code = MPV) 7.6 7.4-10.4 [place] [address]-07-26 18:34:00 Test Item Value Reference Range Interpretation Comments Plt Morph (test code = Normal (06/14/22 1:34 Plt Morph) PM) [address]07-26 18:34:00 Test Item Value Reference Range Interpretation Comments Segs (test code = Segs) 89.0 45.0-75.0 [place] [address]-07-26 18:34:00 Test Item Value Reference Range Interpretation Comments Bands (test code = 3.0 See_Comment [Automat ed message] The Bands) system which ge nerated this result transmit lavon reference range : <=11.0. The reference r hugo was not used to interpr et this result as dionne l/abnormal. [place] 778932-07-26 18:34:00 Test Item Value Reference Range Interpretation Comments Lymphocytes (test code = Lymphocytes) 8.0 20.0-40.0 [place] [address]-07-26 18:34:00 Test Item Value Reference Range Interpretation Comments Monocytes (test code = Monocytes) 0.0 2.0-12.0 [place] [address]-07-26 18:34:00 Test Item Value Reference Range Interpretation Comments Neutrophils # (test code = Neutrophils 12.4 1.5-8.1 #) [place] [address]-07-26 18:34:00 Test Item Value Reference Range Interpretation Comments Lymphocytes # (test code = Lymphocytes 1.1 1.0-5.5 #) [place] [address]-07-26 18:34:00 Test Item Value Reference Range Interpretation Comments Monocytes # (test code 0.0 See_Comment [Aut omated message] The = Monocytes #) system which generated this result tra nsmitted reference range : <=0.8. The reference r hugo was not used to int erpret this result as normal/abnormal . [place] 778932-07-26 18:34:00 Test Item Value Reference Range Interpretation Comments Hypochrom (test code = 1+ (06/14/22 1:34 PM) Hypochrom) [place] [address]-07-26 18:34:00 Test Item Value Reference Range Interpretation Comments Glucose Lvl (test code = Glucose Lvl) 110 70-99 [place] [address]-07-26 18:34:00 Test Item Value Reference Range Interpretation Comments BUN (test code = BUN) 28 - [place] 852652-07-26 18:34:00 Test Item Value Reference Range Interpretation Comments Creatinine Lvl (test code = Creatinine 1.05 0.50-1.40 Lvl) [place] 852652-07-26 18:34:00 Test Item Value Reference Range Interpretation Comments Sodium Lvl (test code = Sodium Lvl) 132 135-145 [place] 852652-07-26 18:34:00 Test Item Value Reference Range Interpretation Comments Potassium Lvl (test code = Potassium 4.4 3.5-5.1 Lvl) [place] 852652-07-26 18:34:00 Test Item Value Reference Range Interpretation Comments Chloride Lvl (test code = Chloride Lvl) 96 95-109 [place] 852652-07-26 18:34:00 Test Item Value Reference Range Interpretation Comments CO2 (test code = CO2) 27 24-32 [place] 852652-07-26 18:34:00 Test Item Value Reference Range Interpretation Comments Calcium Lvl (test code = Calcium Lvl) 8.5 8.5-10.5 [place] 852652-07-26 18:34:00 Test Item Value Reference Range Interpretation Comments AGAP (test code = AGAP) 13.4 10.0-20.0 [place] 852652-07-26 18:34:00 Test Item Value Reference Range Interpretation Comments eGFR (test code = eGFR) 51 [place] 778932-07-26 18:34:00 Test Item Value Reference Range Interpretation Comments WBC (test code = WBC) 13.5 3.7-10.4 [place] 778932-07-26 18:34:00 Test Item Value Reference Range Interpretation Comments RBC (test code = RBC) 3.63 4.20-5.40 [place] 778932-07-26 18:34:00 Test Item Value Reference Range Interpretation Comments Hgb (test code = Hgb) 8.7 12.0-16.0 [place] 778932-07-26 18:34:00 Test Item Value Reference Range Interpretation Comments Hct (test code = Hct) 28.2 36.0-48.0 [place] 778932-07-26 18:34:00 Test Item Value Reference Range Interpretation Comments MCV (test code = MCV) 77.5 80.0-98.0 [place] 778932-07-26 18:34:00 Test Item Value Reference Range Interpretation Comments MCH (test code = MCH) 24.0 pg 27.0-31.0 [place] 778932-07-26 18:34:00 Test Item Value Reference Range Interpretation Comments MCHC (test code = MCHC) 30.9 32.0-36.0 [facility]KiykniwMDIPQJRFGD2312-43-85 18:34:00 Test Item Value Reference Range Interpretation Comments RDW (test code = RDW) 21.2 11.5-14.5 [place] 778932-07-26 18:34:00 Test Item Value Reference Range Interpretation Comments Platelet (test code = Platelet) 324 133-450 [facility] CenterGixocfrTCAXXRPXZS7094-75-48 18:34:00 Test Item Value Reference Range Interpretation Comments MPV (test code = MPV) 7.6 7.4-10.4 [place] 778932-07-26 18:34:00 Test Item Value Reference Range Interpretation Comments Plt Morph (test code = Normal (06/14/22 1:34 Plt Morph) PM) [place] 778932-07-26 18:34:00 Test Item Value Reference Range Interpretation Comments Segs (test code = Segs) 89.0 45.0-75.0 [facility] CenterSqxvvfkJEUFKYERFP9329-63-86 18:34:00 Test Item Value Reference Range Interpretation Comments Bands (test code = 3.0 See_Comment [Automat ed message] The Bands) system which ge nerated this result transmit lavon reference range : <=11.0. The reference r hugo was not used to interpr et this result as dionne l/abnormal. [place] 778932-07-26 18:34:00 Test Item Value Reference Range Interpretation Comments Lymphocytes (test code = Lymphocytes) 8.0 20.0-40.0 [place] [address]-07-26 18:34:00 Test Item Value Reference Range Interpretation Comments Monocytes (test code = Monocytes) 0.0 2.0-12.0 [place] [address]-07-26 18:34:00 Test Item Value Reference Range Interpretation Comments Neutrophils # (test code = Neutrophils 12.4 1.5-8.1 #) [address]07-26 18:34:00 Test Item Value Reference Range Interpretation Comments Lymphocytes # (test code = Lymphocytes 1.1 1.0-5.5 #) [place] [address]-07-26 18:34:00 Test Item Value Reference Range Interpretation Comments Monocytes # (test code 0.0 See_Comment [Aut omated message] The = Monocytes #) system which generated this result tra nsmitted reference range : <=0.8. The reference r hugo was not used to int erpret this result as normal/abnormal . [place] 778932-07-26 18:34:00 Test Item Value Reference Range Interpretation Comments Hypochrom (test code = 1+ (06/14/22 1:34 PM) Hypochrom) [place] 852652-07-26 18:34:00 Test Item Value Reference Range Interpretation Comments Glucose Lvl (test code = Glucose Lvl) 110 70-99 [place] 852652-07-26 18:34:00 Test Item Value Reference Range Interpretation Comments BUN (test code = BUN) 28 7-22 [place] 852652-07-26 18:34:00 Test Item Value Reference Range Interpretation Comments Creatinine Lvl (test code = Creatinine 1.05 0.50-1.40 Lvl) [place] 852652-07-26 18:34:00 Test Item Value Reference Range Interpretation Comments Sodium Lvl (test code = Sodium Lvl) 132 135-145 [place] 852652-07-26 18:34:00 Test Item Value Reference Range Interpretation Comments Potassium Lvl (test code = Potassium 4.4 3.5-5.1 Lvl) [place] 852652-07-26 18:34:00 Test Item Value Reference Range Interpretation Comments Chloride Lvl (test code = Chloride Lvl) 96 95-109 [place] 852652-07-26 18:34:00 Test Item Value Reference Range Interpretation Comments CO2 (test code = CO2) 27 24-32 [place] 852652-07-26 18:34:00 Test Item Value Reference Range Interpretation Comments Calcium Lvl (test code = Calcium Lvl) 8.5 8.5-10.5 [place] 852652-07-26 18:34:00 Test Item Value Reference Range Interpretation Comments AGAP (test code = AGAP) 13.4 10.0-20.0 [place] 852652-07-26 18:34:00 Test Item Value Reference Range Interpretation Comments eGFR (test code = eGFR) 51 [place] 778932-07-26 18:34:00 Test Item Value Reference Range Interpretation Comments WBC (test code = WBC) 13.5 3.7-10.4 [place] 778932-07-26 18:34:00 Test Item Value Reference Range Interpretation Comments RBC (test code = RBC) 3.63 4.20-5.40 [place] 778932-07-26 18:34:00 Test Item Value Reference Range Interpretation Comments Hgb (test code = Hgb) 8.7 12.0-16.0 [place] [address]-07-26 18:34:00 Test Item Value Reference Range Interpretation Comments Hct (test code = Hct) 28.2 36.0-48.0 [place] [address]-07-26 18:34:00 Test Item Value Reference Range Interpretation Comments MCV (test code = MCV) 77.5 80.0-98.0 [place] [address]-07-26 18:34:00 Test Item Value Reference Range Interpretation Comments MCH (test code = MCH) 24.0 pg 27.0-31.0 [place] 778932-07-26 18:34:00 Test Item Value Reference Range Interpretation Comments MCHC (test code = MCHC) 30.9 32.0-36.0 [place] [address]-07-26 18:34:00 Test Item Value Reference Range Interpretation Comments RDW (test code = RDW) 21.2 11.5-14.5 [place] [address]-07-26 18:34:00 Test Item Value Reference Range Interpretation Comments Platelet (test code = Platelet) 324 133-450 [place] 778932-07-26 18:34:00 Test Item Value Reference Range Interpretation Comments MPV (test code = MPV) 7.6 7.4-10.4 [place] [address]-07-26 18:34:00 Test Item Value Reference Range Interpretation Comments Plt Morph (test code = Normal (06/14/22 1:34 Plt Morph) PM) [address]07-26 18:34:00 Test Item Value Reference Range Interpretation Comments Segs (test code = Segs) 89.0 45.0-75.0 [place] [address]-07-26 18:34:00 Test Item Value Reference Range Interpretation Comments Bands (test code = 3.0 See_Comment [Automat ed message] The Bands) system which ge nerated this result transmit lavon reference range : <=11.0. The reference r hugo was not used to interpr et this result as dionne l/abnormal. [place] 778932-07-26 18:34:00 Test Item Value Reference Range Interpretation Comments Lymphocytes (test code = Lymphocytes) 8.0 20.0-40.0 [place] [address]-07-26 18:34:00 Test Item Value Reference Range Interpretation Comments Monocytes (test code = Monocytes) 0.0 2.0-12.0 [place] [address]-07-26 18:34:00 Test Item Value Reference Range Interpretation Comments Neutrophils # (test code = Neutrophils 12.4 1.5-8.1 #) [place] [address]-07-26 18:34:00 Test Item Value Reference Range Interpretation Comments Lymphocytes # (test code = Lymphocytes 1.1 1.0-5.5 #) [place] [address]-07-26 18:34:00 Test Item Value Reference Range Interpretation Comments Monocytes # (test code 0.0 See_Comment [Aut omated message] The = Monocytes #) system which generated this result tra nsmitted reference range : <=0.8. The reference r hugo was not used to int erpret this result as normal/abnormal . [place] 778932-07-26 18:34:00 Test Item Value Reference Range Interpretation Comments Hypochrom (test code = 1+ (06/14/22 1:34 PM) Hypochrom) [place] [address]-07-26 18:34:00 Test Item Value Reference Range Interpretation Comments Glucose Lvl (test code = Glucose Lvl) 110 70-99 [place] [address]-07-26 18:34:00 Test Item Value Reference Range Interpretation Comments BUN (test code = BUN) 28 - [place] 852652-07-26 18:34:00 Test Item Value Reference Range Interpretation Comments Creatinine Lvl (test code = Creatinine 1.05 0.50-1.40 Lvl) [place] 852652-07-26 18:34:00 Test Item Value Reference Range Interpretation Comments Sodium Lvl (test code = Sodium Lvl) 132 135-145 [place] 852652-07-26 18:34:00 Test Item Value Reference Range Interpretation Comments Potassium Lvl (test code = Potassium 4.4 3.5-5.1 Lvl) [place] 852652-07-26 18:34:00 Test Item Value Reference Range Interpretation Comments Chloride Lvl (test code = Chloride Lvl) 96 95-109 [place] 852652-07-26 18:34:00 Test Item Value Reference Range Interpretation Comments CO2 (test code = CO2) 27 24-32 [place] 852652-07-26 18:34:00 Test Item Value Reference Range Interpretation Comments Calcium Lvl (test code = Calcium Lvl) 8.5 8.5-10.5 [place] 852652-07-26 18:34:00 Test Item Value Reference Range Interpretation Comments AGAP (test code = AGAP) 13.4 10.0-20.0 [place] 852652-07-26 18:34:00 Test Item Value Reference Range Interpretation Comments eGFR (test code = eGFR) 51 [place] 778932-07-26 18:34:00 Test Item Value Reference Range Interpretation Comments WBC (test code = WBC) 13.5 3.7-10.4 [place] 778932-07-26 18:34:00 Test Item Value Reference Range Interpretation Comments RBC (test code = RBC) 3.63 4.20-5.40 [place] 778932-07-26 18:34:00 Test Item Value Reference Range Interpretation Comments Hgb (test code = Hgb) 8.7 12.0-16.0 [place] 778932-07-26 18:34:00 Test Item Value Reference Range Interpretation Comments Hct (test code = Hct) 28.2 36.0-48.0 [place] 778932-07-26 18:34:00 Test Item Value Reference Range Interpretation Comments MCV (test code = MCV) 77.5 80.0-98.0 [place] 778932-07-26 18:34:00 Test Item Value Reference Range Interpretation Comments MCH (test code = MCH) 24.0 pg 27.0-31.0 [place] 778932-07-26 18:34:00 Test Item Value Reference Range Interpretation Comments MCHC (test code = MCHC) 30.9 32.0-36.0 [facility] 18:34:00 Test Item Value Reference Range Interpretation Comments RDW (test code = RDW) 21.2 11.5-14.5 [place] 778932-07-26 18:34:00 Test Item Value Reference Range Interpretation Comments Platelet (test code = Platelet) 324 133-450 [facility]hhNTKZQXARQM1411-97-13 18:34:00 Test Item Value Reference Range Interpretation Comments MPV (test code = MPV) 7.6 7.4-10.4 [place] 778932-07-26 18:34:00 Test Item Value Reference Range Interpretation Comments Plt Morph (test code = Normal (06/14/22 1:34 Plt Morph) PM) [place] 778932-07-26 18:34:00 Test Item Value Reference Range Interpretation Comments Segs (test code = Segs) 89.0 45.0-75.0 [facility]GkjbxuvYCGMQYFFSP4558-80-06 18:34:00 Test Item Value Reference Range Interpretation Comments Bands (test code = 3.0 See_Comment [Automat ed message] The Bands) system which ge nerated this result transmit lavon reference range : <=11.0. The reference r hugo was not used to interpr et this result as dionne l/abnormal. [place] 778932-07-26 18:34:00 Test Item Value Reference Range Interpretation Comments Lymphocytes (test code = Lymphocytes) 8.0 20.0-40.0 [place] [address]-07-26 18:34:00 Test Item Value Reference Range Interpretation Comments Monocytes (test code = Monocytes) 0.0 2.0-12.0 [place] [address]-07-26 18:34:00 Test Item Value Reference Range Interpretation Comments Neutrophils # (test code = Neutrophils 12.4 1.5-8.1 #) [address]07-26 18:34:00 Test Item Value Reference Range Interpretation Comments Lymphocytes # (test code = Lymphocytes 1.1 1.0-5.5 #) [place] [address]-07-26 18:34:00 Test Item Value Reference Range Interpretation Comments Monocytes # (test code 0.0 See_Comment [Aut omated message] The = Monocytes #) system which generated this result tra nsmitted reference range : <=0.8. The reference r hugo was not used to int erpret this result as normal/abnormal . [place] 778932-07-26 18:34:00 Test Item Value Reference Range Interpretation Comments Hypochrom (test code = 1+ (06/14/22 1:34 PM) Hypochrom) [place] 852652-07-26 18:34:00 Test Item Value Reference Range Interpretation Comments Glucose Lvl (test code = Glucose Lvl) 110 70-99 [place] 852652-07-26 18:34:00 Test Item Value Reference Range Interpretation Comments BUN (test code = BUN) 28 7-22 [place] 852652-07-26 18:34:00 Test Item Value Reference Range Interpretation Comments Creatinine Lvl (test code = Creatinine 1.05 0.50-1.40 Lvl) [place] 852652-07-26 18:34:00 Test Item Value Reference Range Interpretation Comments Sodium Lvl (test code = Sodium Lvl) 132 135-145 [place] 852652-07-26 18:34:00 Test Item Value Reference Range Interpretation Comments Potassium Lvl (test code = Potassium 4.4 3.5-5.1 Lvl) [place] 852652-07-26 18:34:00 Test Item Value Reference Range Interpretation Comments Chloride Lvl (test code = Chloride Lvl) 96 95-109 [place] 852652-07-26 18:34:00 Test Item Value Reference Range Interpretation Comments CO2 (test code = CO2) 27 24-32 [place] 852652-07-26 18:34:00 Test Item Value Reference Range Interpretation Comments Calcium Lvl (test code = Calcium Lvl) 8.5 8.5-10.5 [place] 852652-07-26 18:34:00 Test Item Value Reference Range Interpretation Comments AGAP (test code = AGAP) 13.4 10.0-20.0 [place] 852652-07-26 18:34:00 Test Item Value Reference Range Interpretation Comments eGFR (test code = eGFR) 51 [place] 778932-07-26 18:34:00 Test Item Value Reference Range Interpretation Comments WBC (test code = WBC) 13.5 3.7-10.4 [place] 778932-07-26 18:34:00 Test Item Value Reference Range Interpretation Comments RBC (test code = RBC) 3.63 4.20-5.40 [place] 778932-07-26 18:34:00 Test Item Value Reference Range Interpretation Comments Hgb (test code = Hgb) 8.7 12.0-16.0 [place] [address]-07-26 18:34:00 Test Item Value Reference Range Interpretation Comments Hct (test code = Hct) 28.2 36.0-48.0 [place] [address]-07-26 18:34:00 Test Item Value Reference Range Interpretation Comments MCV (test code = MCV) 77.5 80.0-98.0 [place] [address]-07-26 18:34:00 Test Item Value Reference Range Interpretation Comments MCH (test code = MCH) 24.0 pg 27.0-31.0 [place] 778932-07-26 18:34:00 Test Item Value Reference Range Interpretation Comments MCHC (test code = MCHC) 30.9 32.0-36.0 [place] [address]-07-26 18:34:00 Test Item Value Reference Range Interpretation Comments RDW (test code = RDW) 21.2 11.5-14.5 [place] [address]-07-26 18:34:00 Test Item Value Reference Range Interpretation Comments Platelet (test code = Platelet) 324 133-450 [place] 778932-07-26 18:34:00 Test Item Value Reference Range Interpretation Comments MPV (test code = MPV) 7.6 7.4-10.4 [place] [address]-07-26 18:34:00 Test Item Value Reference Range Interpretation Comments Plt Morph (test code = Normal (06/14/22 1:34 Plt Morph) PM) [address]07-26 18:34:00 Test Item Value Reference Range Interpretation Comments Segs (test code = Segs) 89.0 45.0-75.0 [place] [address]-07-26 18:34:00 Test Item Value Reference Range Interpretation Comments Bands (test code = 3.0 See_Comment [Automat ed message] The Bands) system which ge nerated this result transmit lavon reference range : <=11.0. The reference r hugo was not used to interpr et this result as dionne l/abnormal. [place] 778932-07-26 18:34:00 Test Item Value Reference Range Interpretation Comments Lymphocytes (test code = Lymphocytes) 8.0 20.0-40.0 [place] [address]-07-26 18:34:00 Test Item Value Reference Range Interpretation Comments Monocytes (test code = Monocytes) 0.0 2.0-12.0 [place] [address]-07-26 18:34:00 Test Item Value Reference Range Interpretation Comments Neutrophils # (test code = Neutrophils 12.4 1.5-8.1 #) [place] [address]-07-26 18:34:00 Test Item Value Reference Range Interpretation Comments Lymphocytes # (test code = Lymphocytes 1.1 1.0-5.5 #) [place] [address]-07-26 18:34:00 Test Item Value Reference Range Interpretation Comments Monocytes # (test code 0.0 See_Comment [Aut omated message] The = Monocytes #) system which generated this result tra nsmitted reference range : <=0.8. The reference r hugo was not used to int erpret this result as normal/abnormal . [place] 778932-07-26 18:34:00 Test Item Value Reference Range Interpretation Comments Hypochrom (test code = 1+ (06/14/22 1:34 PM) Hypochrom) [place] [address]-07-26 18:34:00 Test Item Value Reference Range Interpretation Comments Glucose Lvl (test code = Glucose Lvl) 110 70-99 [place] [address]-07-26 18:34:00 Test Item Value Reference Range Interpretation Comments BUN (test code = BUN) 28 - [place] 852652-07-26 18:34:00 Test Item Value Reference Range Interpretation Comments Creatinine Lvl (test code = Creatinine 1.05 0.50-1.40 Lvl) [place] 852652-07-26 18:34:00 Test Item Value Reference Range Interpretation Comments Sodium Lvl (test code = Sodium Lvl) 132 135-145 [place] 852652-07-26 18:34:00 Test Item Value Reference Range Interpretation Comments Potassium Lvl (test code = Potassium 4.4 3.5-5.1 Lvl) [place] 852652-07-26 18:34:00 Test Item Value Reference Range Interpretation Comments Chloride Lvl (test code = Chloride Lvl) 96 95-109 [place] 852652-07-26 18:34:00 Test Item Value Reference Range Interpretation Comments CO2 (test code = CO2) 27 24-32 [place] 852652-07-26 18:34:00 Test Item Value Reference Range Interpretation Comments Calcium Lvl (test code = Calcium Lvl) 8.5 8.5-10.5 [place] 852652-07-26 18:34:00 Test Item Value Reference Range Interpretation Comments AGAP (test code = AGAP) 13.4 10.0-20.0 [place] 852652-07-26 18:34:00 Test Item Value Reference Range Interpretation Comments eGFR (test code = eGFR) 51 [place] 778932-07-26 18:34:00 Test Item Value Reference Range Interpretation Comments WBC (test code = WBC) 13.5 3.7-10.4 [place] 778932-07-26 18:34:00 Test Item Value Reference Range Interpretation Comments RBC (test code = RBC) 3.63 4.20-5.40 [place] 778932-07-26 18:34:00 Test Item Value Reference Range Interpretation Comments Hgb (test code = Hgb) 8.7 12.0-16.0 [place] 778932-07-26 18:34:00 Test Item Value Reference Range Interpretation Comments Hct (test code = Hct) 28.2 36.0-48.0 [place] 778932-07-26 18:34:00 Test Item Value Reference Range Interpretation Comments MCV (test code = MCV) 77.5 80.0-98.0 [place] 778932-07-26 18:34:00 Test Item Value Reference Range Interpretation Comments MCH (test code = MCH) 24.0 pg 27.0-31.0 [place] 778932-07-26 18:34:00 Test Item Value Reference Range Interpretation Comments MCHC (test code = MCHC) 30.9 32.0-36.0 [facility]MYQRJUAZ5393-10-05 18:34:00 Test Item Value Reference Range Interpretation Comments RDW (test code = RDW) 21.2 11.5-14.5 [place] 778932-07-26 18:34:00 Test Item Value Reference Range Interpretation Comments Platelet (test code = Platelet) 324 133-450 [facility]BzxwjfbAGHAJENIQQ2650-40-22 18:34:00 Test Item Value Reference Range Interpretation Comments MPV (test code = MPV) 7.6 7.4-10.4 [place] 778932-07-26 18:34:00 Test Item Value Reference Range Interpretation Comments Plt Morph (test code = Normal (06/14/22 1:34 Plt Morph) PM) [place] 778932-07-26 18:34:00 Test Item Value Reference Range Interpretation Comments Segs (test code = Segs) 89.0 45.0-75.0 [facility] CenterSpgwkykAMTMWAZOZY3764-29-64 18:34:00 Test Item Value Reference Range Interpretation Comments Bands (test code = 3.0 See_Comment [Automat ed message] The Bands) system which ge nerated this result transmit lavon reference range : <=11.0. The reference r hugo was not used to interpr et this result as dionne l/abnormal. [place] 778932-07-26 18:34:00 Test Item Value Reference Range Interpretation Comments Lymphocytes (test code = Lymphocytes) 8.0 20.0-40.0 [place] [address]-07-26 18:34:00 Test Item Value Reference Range Interpretation Comments Monocytes (test code = Monocytes) 0.0 2.0-12.0 [place] [address]-07-26 18:34:00 Test Item Value Reference Range Interpretation Comments Neutrophils # (test code = Neutrophils 12.4 1.5-8.1 #) [address]07-26 18:34:00 Test Item Value Reference Range Interpretation Comments Lymphocytes # (test code = Lymphocytes 1.1 1.0-5.5 #) [place] [address]-07-26 18:34:00 Test Item Value Reference Range Interpretation Comments Monocytes # (test code 0.0 See_Comment [Aut omated message] The = Monocytes #) system which generated this result tra nsmitted reference range : <=0.8. The reference r hugo was not used to int erpret this result as normal/abnormal . [place] 778932-07-26 18:34:00 Test Item Value Reference Range Interpretation Comments Hypochrom (test code = 1+ (06/14/22 1:34 PM) Hypochrom) [place] 852652-07-26 18:34:00 Test Item Value Reference Range Interpretation Comments Glucose Lvl (test code = Glucose Lvl) 110 70-99 [place] 852652-07-26 18:34:00 Test Item Value Reference Range Interpretation Comments BUN (test code = BUN) 28 7-22 [place] 852652-07-26 18:34:00 Test Item Value Reference Range Interpretation Comments Creatinine Lvl (test code = Creatinine 1.05 0.50-1.40 Lvl) [place] 852652-07-26 18:34:00 Test Item Value Reference Range Interpretation Comments Sodium Lvl (test code = Sodium Lvl) 132 135-145 [place] 852652-07-26 18:34:00 Test Item Value Reference Range Interpretation Comments Potassium Lvl (test code = Potassium 4.4 3.5-5.1 Lvl) [place] 852652-07-26 18:34:00 Test Item Value Reference Range Interpretation Comments Chloride Lvl (test code = Chloride Lvl) 96 95-109 [place] 852652-07-26 18:34:00 Test Item Value Reference Range Interpretation Comments CO2 (test code = CO2) 27 24-32 [place] 852652-07-26 18:34:00 Test Item Value Reference Range Interpretation Comments Calcium Lvl (test code = Calcium Lvl) 8.5 8.5-10.5 [place] 852652-07-26 18:34:00 Test Item Value Reference Range Interpretation Comments AGAP (test code = AGAP) 13.4 10.0-20.0 [place] 852652-07-26 18:34:00 Test Item Value Reference Range Interpretation Comments eGFR (test code = eGFR) 51 [place] 778932-07-26 18:34:00 Test Item Value Reference Range Interpretation Comments WBC (test code = WBC) 13.5 3.7-10.4 [place] 778932-07-26 18:34:00 Test Item Value Reference Range Interpretation Comments RBC (test code = RBC) 3.63 4.20-5.40 [place] 778932-07-26 18:34:00 Test Item Value Reference Range Interpretation Comments Hgb (test code = Hgb) 8.7 12.0-16.0 [place] [address]-07-26 18:34:00 Test Item Value Reference Range Interpretation Comments Hct (test code = Hct) 28.2 36.0-48.0 [place] [address]-07-26 18:34:00 Test Item Value Reference Range Interpretation Comments MCV (test code = MCV) 77.5 80.0-98.0 [place] [address]-07-26 18:34:00 Test Item Value Reference Range Interpretation Comments MCH (test code = MCH) 24.0 pg 27.0-31.0 [place] 778932-07-26 18:34:00 Test Item Value Reference Range Interpretation Comments MCHC (test code = MCHC) 30.9 32.0-36.0 [place] [address]-07-26 18:34:00 Test Item Value Reference Range Interpretation Comments RDW (test code = RDW) 21.2 11.5-14.5 [place] [address]-07-26 18:34:00 Test Item Value Reference Range Interpretation Comments Platelet (test code = Platelet) 324 133-450 [place] 778932-07-26 18:34:00 Test Item Value Reference Range Interpretation Comments MPV (test code = MPV) 7.6 7.4-10.4 [place] [address]-07-26 18:34:00 Test Item Value Reference Range Interpretation Comments Plt Morph (test code = Normal (06/14/22 1:34 Plt Morph) PM) [address]07-26 18:34:00 Test Item Value Reference Range Interpretation Comments Segs (test code = Segs) 89.0 45.0-75.0 [place] [address]-07-26 18:34:00 Test Item Value Reference Range Interpretation Comments Bands (test code = 3.0 See_Comment [Automat ed message] The Bands) system which ge nerated this result transmit lavon reference range : <=11.0. The reference r hugo was not used to interpr et this result as dionne l/abnormal. [place] 778932-07-26 18:34:00 Test Item Value Reference Range Interpretation Comments Lymphocytes (test code = Lymphocytes) 8.0 20.0-40.0 [place] [address]-07-26 18:34:00 Test Item Value Reference Range Interpretation Comments Monocytes (test code = Monocytes) 0.0 2.0-12.0 [place] [address]-07-26 18:34:00 Test Item Value Reference Range Interpretation Comments Neutrophils # (test code = Neutrophils 12.4 1.5-8.1 #) [place] [address]-07-26 18:34:00 Test Item Value Reference Range Interpretation Comments Lymphocytes # (test code = Lymphocytes 1.1 1.0-5.5 #) [place] [address]-07-26 18:34:00 Test Item Value Reference Range Interpretation Comments Monocytes # (test code 0.0 See_Comment [Aut omated message] The = Monocytes #) system which generated this result tra nsmitted reference range : <=0.8. The reference r hugo was not used to int erpret this result as normal/abnormal . [place] 778932-07-26 18:34:00 Test Item Value Reference Range Interpretation Comments Hypochrom (test code = 1+ (06/14/22 1:34 PM) Hypochrom) [place] [address]-07-26 18:34:00 Test Item Value Reference Range Interpretation Comments Glucose Lvl (test code = Glucose Lvl) 110 70-99 [place] [address]-07-26 18:34:00 Test Item Value Reference Range Interpretation Comments BUN (test code = BUN) 28 - [place] 852652-07-26 18:34:00 Test Item Value Reference Range Interpretation Comments Creatinine Lvl (test code = Creatinine 1.05 0.50-1.40 Lvl) [place] 852652-07-26 18:34:00 Test Item Value Reference Range Interpretation Comments Sodium Lvl (test code = Sodium Lvl) 132 135-145 [place] 852652-07-26 18:34:00 Test Item Value Reference Range Interpretation Comments Potassium Lvl (test code = Potassium 4.4 3.5-5.1 Lvl) [place] 852652-07-26 18:34:00 Test Item Value Reference Range Interpretation Comments Chloride Lvl (test code = Chloride Lvl) 96 95-109 [place] 852652-07-26 18:34:00 Test Item Value Reference Range Interpretation Comments CO2 (test code = CO2) 27 24-32 [place] 852652-07-26 18:34:00 Test Item Value Reference Range Interpretation Comments Calcium Lvl (test code = Calcium Lvl) 8.5 8.5-10.5 [place] 852652-07-26 18:34:00 Test Item Value Reference Range Interpretation Comments AGAP (test code = AGAP) 13.4 10.0-20.0 [place] 852652-07-26 18:34:00 Test Item Value Reference Range Interpretation Comments eGFR (test code = eGFR) 51 [place] 778932-07-26 18:34:00 Test Item Value Reference Range Interpretation Comments WBC (test code = WBC) 13.5 3.7-10.4 [place] 778932-07-26 18:34:00 Test Item Value Reference Range Interpretation Comments RBC (test code = RBC) 3.63 4.20-5.40 [place] 778932-07-26 18:34:00 Test Item Value Reference Range Interpretation Comments Hgb (test code = Hgb) 8.7 12.0-16.0 [place] 778932-07-26 18:34:00 Test Item Value Reference Range Interpretation Comments Hct (test code = Hct) 28.2 36.0-48.0 [place] 778932-07-26 18:34:00 Test Item Value Reference Range Interpretation Comments MCV (test code = MCV) 77.5 80.0-98.0 [place] 778932-07-26 18:34:00 Test Item Value Reference Range Interpretation Comments MCH (test code = MCH) 24.0 pg 27.0-31.0 [place] 778932-07-26 18:34:00 Test Item Value Reference Range Interpretation Comments MCHC (test code = MCHC) 30.9 32.0-36.0 [facility]kggeejEYJUSUDJUO5388[facility]07-[facility] 18:34:00 Test Item Value Reference Range Interpretation Comments RDW (test code = RDW) 21.2 11.5-14.5 [place] 778932-07-26 18:34:00 Test Item Value Reference Range Interpretation Comments Platelet (test code = Platelet) 324 133-450 [facility] CenterYslwgmbNHEWRJBNBG3798-25-91 18:34:00 Test Item Value Reference Range Interpretation Comments MPV (test code = MPV) 7.6 7.4-10.4 [place] 778932-07-26 18:34:00 Test Item Value Reference Range Interpretation Comments Plt Morph (test code = Normal (06/14/22 1:34 Plt Morph) PM) [place] 778932-07-26 18:34:00 Test Item Value Reference Range Interpretation Comments Segs (test code = Segs) 89.0 45.0-75.0 [facility] CenterAozuvelZOMBAVADQZ6726-94-90 18:34:00 Test Item Value Reference Range Interpretation Comments Bands (test code = 3.0 See_Comment [Automat ed message] The Bands) system which ge nerated this result transmit lavon reference range : <=11.0. The reference r hugo was not used to interpr et this result as dionne l/abnormal. [place] 778932-07-26 18:34:00 Test Item Value Reference Range Interpretation Comments Lymphocytes (test code = Lymphocytes) 8.0 20.0-40.0 [place] [address]-07-26 18:34:00 Test Item Value Reference Range Interpretation Comments Monocytes (test code = Monocytes) 0.0 2.0-12.0 [place] [address]-07-26 18:34:00 Test Item Value Reference Range Interpretation Comments Neutrophils # (test code = Neutrophils 12.4 1.5-8.1 #) [address]07-26 18:34:00 Test Item Value Reference Range Interpretation Comments Lymphocytes # (test code = Lymphocytes 1.1 1.0-5.5 #) [place] [address]-07-26 18:34:00 Test Item Value Reference Range Interpretation Comments Monocytes # (test code 0.0 See_Comment [Aut omated message] The = Monocytes #) system which generated this result tra nsmitted reference range : <=0.8. The reference r hugo was not used to int erpret this result as normal/abnormal . [place] 778932-07-26 18:34:00 Test Item Value Reference Range Interpretation Comments Hypochrom (test code = 1+ (06/14/22 1:34 PM) Hypochrom) [place] 852652-07-26 18:34:00 Test Item Value Reference Range Interpretation Comments Glucose Lvl (test code = Glucose Lvl) 110 70-99 [place] 852652-07-26 18:34:00 Test Item Value Reference Range Interpretation Comments BUN (test code = BUN) 28 7-22 [place] 852652-07-26 18:34:00 Test Item Value Reference Range Interpretation Comments Creatinine Lvl (test code = Creatinine 1.05 0.50-1.40 Lvl) [place] 852652-07-26 18:34:00 Test Item Value Reference Range Interpretation Comments Sodium Lvl (test code = Sodium Lvl) 132 135-145 [place] 852652-07-26 18:34:00 Test Item Value Reference Range Interpretation Comments Potassium Lvl (test code = Potassium 4.4 3.5-5.1 Lvl) [place] 852652-07-26 18:34:00 Test Item Value Reference Range Interpretation Comments Chloride Lvl (test code = Chloride Lvl) 96 95-109 [place] 852652-07-26 18:34:00 Test Item Value Reference Range Interpretation Comments CO2 (test code = CO2) 27 24-32 [place] 852652-07-26 18:34:00 Test Item Value Reference Range Interpretation Comments Calcium Lvl (test code = Calcium Lvl) 8.5 8.5-10.5 [place] 852652-07-26 18:34:00 Test Item Value Reference Range Interpretation Comments AGAP (test code = AGAP) 13.4 10.0-20.0 [place] 852652-07-26 18:34:00 Test Item Value Reference Range Interpretation Comments eGFR (test code = eGFR) 51 [place] 778932-07-26 18:34:00 Test Item Value Reference Range Interpretation Comments WBC (test code = WBC) 13.5 3.7-10.4 [place] 778932-07-26 18:34:00 Test Item Value Reference Range Interpretation Comments RBC (test code = RBC) 3.63 4.20-5.40 [place] 778932-07-26 18:34:00 Test Item Value Reference Range Interpretation Comments Hgb (test code = Hgb) 8.7 12.0-16.0 [place] [address]-07-26 18:34:00 Test Item Value Reference Range Interpretation Comments Hct (test code = Hct) 28.2 36.0-48.0 [place] [address]-07-26 18:34:00 Test Item Value Reference Range Interpretation Comments MCV (test code = MCV) 77.5 80.0-98.0 [place] [address]-07-26 18:34:00 Test Item Value Reference Range Interpretation Comments MCH (test code = MCH) 24.0 pg 27.0-31.0 [place] 778932-07-26 18:34:00 Test Item Value Reference Range Interpretation Comments MCHC (test code = MCHC) 30.9 32.0-36.0 [place] [address]-07-26 18:34:00 Test Item Value Reference Range Interpretation Comments RDW (test code = RDW) 21.2 11.5-14.5 [place] [address]-07-26 18:34:00 Test Item Value Reference Range Interpretation Comments Platelet (test code = Platelet) 324 133-450 [place] 778932-07-26 18:34:00 Test Item Value Reference Range Interpretation Comments MPV (test code = MPV) 7.6 7.4-10.4 [place] [address]-07-26 18:34:00 Test Item Value Reference Range Interpretation Comments Plt Morph (test code = Normal (06/14/22 1:34 Plt Morph) PM) [address]07-26 18:34:00 Test Item Value Reference Range Interpretation Comments Segs (test code = Segs) 89.0 45.0-75.0 [place] [address]-07-26 18:34:00 Test Item Value Reference Range Interpretation Comments Bands (test code = 3.0 See_Comment [Automat ed message] The Bands) system which ge nerated this result transmit lavon reference range : <=11.0. The reference r hugo was not used to interpr et this result as dionne l/abnormal. [place] 778932-07-26 18:34:00 Test Item Value Reference Range Interpretation Comments Lymphocytes (test code = Lymphocytes) 8.0 20.0-40.0 [place] [address]-07-26 18:34:00 Test Item Value Reference Range Interpretation Comments Monocytes (test code = Monocytes) 0.0 2.0-12.0 [place] [address]-07-26 18:34:00 Test Item Value Reference Range Interpretation Comments Neutrophils # (test code = Neutrophils 12.4 1.5-8.1 #) [place] [address]-07-26 18:34:00 Test Item Value Reference Range Interpretation Comments Lymphocytes # (test code = Lymphocytes 1.1 1.0-5.5 #) [place] [address]-07-26 18:34:00 Test Item Value Reference Range Interpretation Comments Monocytes # (test code 0.0 See_Comment [Aut omated message] The = Monocytes #) system which generated this result tra nsmitted reference range : <=0.8. The reference r hugo was not used to int erpret this result as normal/abnormal . [place] 778932-07-26 18:34:00 Test Item Value Reference Range Interpretation Comments Hypochrom (test code = 1+ (06/14/22 1:34 PM) Hypochrom) [place] [address]-07-26 18:34:00 Test Item Value Reference Range Interpretation Comments Glucose Lvl (test code = Glucose Lvl) 110 70-99 [place] [address]-07-26 18:34:00 Test Item Value Reference Range Interpretation Comments BUN (test code = BUN) 28 - [place] 852652-07-26 18:34:00 Test Item Value Reference Range Interpretation Comments Creatinine Lvl (test code = Creatinine 1.05 0.50-1.40 Lvl) [place] 852652-07-26 18:34:00 Test Item Value Reference Range Interpretation Comments Sodium Lvl (test code = Sodium Lvl) 132 135-145 [place] 852652-07-26 18:34:00 Test Item Value Reference Range Interpretation Comments Potassium Lvl (test code = Potassium 4.4 3.5-5.1 Lvl) [place] 852652-07-26 18:34:00 Test Item Value Reference Range Interpretation Comments Chloride Lvl (test code = Chloride Lvl) 96 95-109 [place] 852652-07-26 18:34:00 Test Item Value Reference Range Interpretation Comments CO2 (test code = CO2) 27 24-32 [place] 852652-07-26 18:34:00 Test Item Value Reference Range Interpretation Comments Calcium Lvl (test code = Calcium Lvl) 8.5 8.5-10.5 [place] 852652-07-26 18:34:00 Test Item Value Reference Range Interpretation Comments AGAP (test code = AGAP) 13.4 10.0-20.0 [place] 852652-07-26 18:34:00 Test Item Value Reference Range Interpretation Comments eGFR (test code = eGFR) 51 [place] 778932-07-26 18:34:00 Test Item Value Reference Range Interpretation Comments WBC (test code = WBC) 13.5 3.7-10.4 [place] 778932-07-26 18:34:00 Test Item Value Reference Range Interpretation Comments RBC (test code = RBC) 3.63 4.20-5.40 [place] 778932-07-26 18:34:00 Test Item Value Reference Range Interpretation Comments Hgb (test code = Hgb) 8.7 12.0-16.0 [place] 778932-07-26 18:34:00 Test Item Value Reference Range Interpretation Comments Hct (test code = Hct) 28.2 36.0-48.0 [place] 778932-07-26 18:34:00 Test Item Value Reference Range Interpretation Comments MCV (test code = MCV) 77.5 80.0-98.0 [place] 778932-07-26 18:34:00 Test Item Value Reference Range Interpretation Comments MCH (test code = MCH) 24.0 pg 27.0-31.0 [place] 778932-07-26 18:34:00 Test Item Value Reference Range Interpretation Comments MCHC (test code = MCHC) 30.9 32.0-36.0 [facility] 18:34:00 Test Item Value Reference Range Interpretation Comments RDW (test code = RDW) 21.2 11.5-14.5 [place] 778932-07-26 18:34:00 Test Item Value Reference Range Interpretation Comments Platelet (test code = Platelet) 324 133-450 [facility]UwisueoMCBDJQCXLZ6930-25-90 18:34:00 Test Item Value Reference Range Interpretation Comments MPV (test code = MPV) 7.6 7.4-10.4 [place] 778932-07-26 18:34:00 Test Item Value Reference Range Interpretation Comments Plt Morph (test code = Normal (06/14/22 1:34 Plt Morph) PM) [place] 778932-07-26 18:34:00 Test Item Value Reference Range Interpretation Comments Segs (test code = Segs) 89.0 45.0-75.0 [facility]RixrlnsMIKAVGJSWQ3976-13-20 18:34:00 Test Item Value Reference Range Interpretation Comments Bands (test code = 3.0 See_Comment [Automat ed message] The Bands) system which ge nerated this result transmit lavon reference range : <=11.0. The reference r hugo was not used to interpr et this result as dionne l/abnormal. [place] 778932-07-26 18:34:00 Test Item Value Reference Range Interpretation Comments Lymphocytes (test code = Lymphocytes) 8.0 20.0-40.0 [place] [address]-07-26 18:34:00 Test Item Value Reference Range Interpretation Comments Monocytes (test code = Monocytes) 0.0 2.0-12.0 [place] [address]-07-26 18:34:00 Test Item Value Reference Range Interpretation Comments Neutrophils # (test code = Neutrophils 12.4 1.5-8.1 #) [address]07-26 18:34:00 Test Item Value Reference Range Interpretation Comments Lymphocytes # (test code = Lymphocytes 1.1 1.0-5.5 #) [place] [address]-07-26 18:34:00 Test Item Value Reference Range Interpretation Comments Monocytes # (test code 0.0 See_Comment [Aut omated message] The = Monocytes #) system which generated this result tra nsmitted reference range : <=0.8. The reference r hugo was not used to int erpret this result as normal/abnormal . [place] 778932-07-26 18:34:00 Test Item Value Reference Range Interpretation Comments Hypochrom (test code = 1+ (06/14/22 1:34 PM) Hypochrom) [place] 852652-07-26 18:34:00 Test Item Value Reference Range Interpretation Comments Glucose Lvl (test code = Glucose Lvl) 110 70-99 [place] 852652-07-26 18:34:00 Test Item Value Reference Range Interpretation Comments BUN (test code = BUN) 28 7-22 [place] 852652-07-26 18:34:00 Test Item Value Reference Range Interpretation Comments Creatinine Lvl (test code = Creatinine 1.05 0.50-1.40 Lvl) [place] 852652-07-26 18:34:00 Test Item Value Reference Range Interpretation Comments Sodium Lvl (test code = Sodium Lvl) 132 135-145 [place] 852652-07-26 18:34:00 Test Item Value Reference Range Interpretation Comments Potassium Lvl (test code = Potassium 4.4 3.5-5.1 Lvl) [place] 852652-07-26 18:34:00 Test Item Value Reference Range Interpretation Comments Chloride Lvl (test code = Chloride Lvl) 96 95-109 [place] 852652-07-26 18:34:00 Test Item Value Reference Range Interpretation Comments CO2 (test code = CO2) 27 24-32 [place] 852652-07-26 18:34:00 Test Item Value Reference Range Interpretation Comments Calcium Lvl (test code = Calcium Lvl) 8.5 8.5-10.5 [place] 852652-07-26 18:34:00 Test Item Value Reference Range Interpretation Comments AGAP (test code = AGAP) 13.4 10.0-20.0 [place] 852652-07-26 18:34:00 Test Item Value Reference Range Interpretation Comments eGFR (test code = eGFR) 51 [place] 778932-07-26 18:34:00 Test Item Value Reference Range Interpretation Comments WBC (test code = WBC) 13.5 3.7-10.4 [place] 778932-07-26 18:34:00 Test Item Value Reference Range Interpretation Comments RBC (test code = RBC) 3.63 4.20-5.40 [place] 778932-07-26 18:34:00 Test Item Value Reference Range Interpretation Comments Hgb (test code = Hgb) 8.7 12.0-16.0 [place] [address]-07-26 18:34:00 Test Item Value Reference Range Interpretation Comments Hct (test code = Hct) 28.2 36.0-48.0 [place] [address]-07-26 18:34:00 Test Item Value Reference Range Interpretation Comments MCV (test code = MCV) 77.5 80.0-98.0 [place] [address]-07-26 18:34:00 Test Item Value Reference Range Interpretation Comments MCH (test code = MCH) 24.0 pg 27.0-31.0 [place] 778932-07-26 18:34:00 Test Item Value Reference Range Interpretation Comments MCHC (test code = MCHC) 30.9 32.0-36.0 [place] [address]-07-26 18:34:00 Test Item Value Reference Range Interpretation Comments RDW (test code = RDW) 21.2 11.5-14.5 [place] [address]-07-26 18:34:00 Test Item Value Reference Range Interpretation Comments Platelet (test code = Platelet) 324 133-450 [place] 778932-07-26 18:34:00 Test Item Value Reference Range Interpretation Comments MPV (test code = MPV) 7.6 7.4-10.4 [place] [address]-07-26 18:34:00 Test Item Value Reference Range Interpretation Comments Plt Morph (test code = Normal (06/14/22 1:34 Plt Morph) PM) [address]07-26 18:34:00 Test Item Value Reference Range Interpretation Comments Segs (test code = Segs) 89.0 45.0-75.0 [place] [address]-07-26 18:34:00 Test Item Value Reference Range Interpretation Comments Bands (test code = 3.0 See_Comment [Automat ed message] The Bands) system which ge nerated this result transmit lavon reference range : <=11.0. The reference r hugo was not used to interpr et this result as dionne l/abnormal. [place] 778932-07-26 18:34:00 Test Item Value Reference Range Interpretation Comments Lymphocytes (test code = Lymphocytes) 8.0 20.0-40.0 [place] [address]-07-26 18:34:00 Test Item Value Reference Range Interpretation Comments Monocytes (test code = Monocytes) 0.0 2.0-12.0 [place] [address]-07-26 18:34:00 Test Item Value Reference Range Interpretation Comments Neutrophils # (test code = Neutrophils 12.4 1.5-8.1 #) [place] [address]-07-26 18:34:00 Test Item Value Reference Range Interpretation Comments Lymphocytes # (test code = Lymphocytes 1.1 1.0-5.5 #) [place] [address]-07-26 18:34:00 Test Item Value Reference Range Interpretation Comments Monocytes # (test code 0.0 See_Comment [Aut omated message] The = Monocytes #) system which generated this result tra nsmitted reference range : <=0.8. The reference r hugo was not used to int erpret this result as normal/abnormal . [place] 778932-07-26 18:34:00 Test Item Value Reference Range Interpretation Comments Hypochrom (test code = 1+ (06/14/22 1:34 PM) Hypochrom) [place] [address]-07-26 18:34:00 Test Item Value Reference Range Interpretation Comments Glucose Lvl (test code = Glucose Lvl) 110 70-99 [place] [address]-07-26 18:34:00 Test Item Value Reference Range Interpretation Comments BUN (test code = BUN) 28 - [place] 852652-07-26 18:34:00 Test Item Value Reference Range Interpretation Comments Creatinine Lvl (test code = Creatinine 1.05 0.50-1.40 Lvl) [place] 852652-07-26 18:34:00 Test Item Value Reference Range Interpretation Comments Sodium Lvl (test code = Sodium Lvl) 132 135-145 [place] 852652-07-26 18:34:00 Test Item Value Reference Range Interpretation Comments Potassium Lvl (test code = Potassium 4.4 3.5-5.1 Lvl) [place] 852652-07-26 18:34:00 Test Item Value Reference Range Interpretation Comments Chloride Lvl (test code = Chloride Lvl) 96 95-109 [place] 852652-07-26 18:34:00 Test Item Value Reference Range Interpretation Comments CO2 (test code = CO2) 27 24-32 [place] 852652-07-26 18:34:00 Test Item Value Reference Range Interpretation Comments Calcium Lvl (test code = Calcium Lvl) 8.5 8.5-10.5 [place] 852652-07-26 18:34:00 Test Item Value Reference Range Interpretation Comments AGAP (test code = AGAP) 13.4 10.0-20.0 [place] 852652-07-26 18:34:00 Test Item Value Reference Range Interpretation Comments eGFR (test code = eGFR) 51 [place] 778932-07-26 18:34:00 Test Item Value Reference Range Interpretation Comments WBC (test code = WBC) 13.5 3.7-10.4 [place] 778932-07-26 18:34:00 Test Item Value Reference Range Interpretation Comments RBC (test code = RBC) 3.63 4.20-5.40 [place] 778932-07-26 18:34:00 Test Item Value Reference Range Interpretation Comments Hgb (test code = Hgb) 8.7 12.0-16.0 [place] 778932-07-26 18:34:00 Test Item Value Reference Range Interpretation Comments Hct (test code = Hct) 28.2 36.0-48.0 [place] 778932-07-26 18:34:00 Test Item Value Reference Range Interpretation Comments MCV (test code = MCV) 77.5 80.0-98.0 [place] 778932-07-26 18:34:00 Test Item Value Reference Range Interpretation Comments MCH (test code = MCH) 24.0 pg 27.0-31.0 [place] 778932-07-26 18:34:00 Test Item Value Reference Range Interpretation Comments MCHC (test code = MCHC) 30.9 32.0-36.0 [facility]JohxgvcMJORDKTOHR6611-44-57 18:34:00 Test Item Value Reference Range Interpretation Comments RDW (test code = RDW) 21.2 11.5-14.5 [place] 778932-07-26 18:34:00 Test Item Value Reference Range Interpretation Comments Platelet (test code = Platelet) 324 133-450 [facility] CenterMgyakmxMUDBZDCGUE0030-34-13 18:34:00 Test Item Value Reference Range Interpretation Comments MPV (test code = MPV) 7.6 7.4-10.4 [place] 778932-07-26 18:34:00 Test Item Value Reference Range Interpretation Comments Plt Morph (test code = Normal (06/14/22 1:34 Plt Morph) PM) [place] 778932-07-26 18:34:00 Test Item Value Reference Range Interpretation Comments Segs (test code = Segs) 89.0 45.0-75.0 [facility] CenterJezftnnXPCWVEUEKV2911-26-39 18:34:00 Test Item Value Reference Range Interpretation Comments Bands (test code = 3.0 See_Comment [Automat ed message] The Bands) system which ge nerated this result transmit lavon reference range : <=11.0. The reference r hugo was not used to interpr et this result as dionne l/abnormal. [place] 778932-07-26 18:34:00 Test Item Value Reference Range Interpretation Comments Lymphocytes (test code = Lymphocytes) 8.0 20.0-40.0 [place] [address]-07-26 18:34:00 Test Item Value Reference Range Interpretation Comments Monocytes (test code = Monocytes) 0.0 2.0-12.0 [place] [address]-07-26 18:34:00 Test Item Value Reference Range Interpretation Comments Neutrophils # (test code = Neutrophils 12.4 1.5-8.1 #) [address]07-26 18:34:00 Test Item Value Reference Range Interpretation Comments Lymphocytes # (test code = Lymphocytes 1.1 1.0-5.5 #) [place] [address]-07-26 18:34:00 Test Item Value Reference Range Interpretation Comments Monocytes # (test code 0.0 See_Comment [Aut omated message] The = Monocytes #) system which generated this result tra nsmitted reference range : <=0.8. The reference r hugo was not used to int erpret this result as normal/abnormal . [place] 778932-07-26 18:34:00 Test Item Value Reference Range Interpretation Comments Hypochrom (test code = 1+ (06/14/22 1:34 PM) Hypochrom) [place] 852652-07-26 18:34:00 Test Item Value Reference Range Interpretation Comments Glucose Lvl (test code = Glucose Lvl) 110 70-99 [place] 852652-07-26 18:34:00 Test Item Value Reference Range Interpretation Comments BUN (test code = BUN) 28 7-22 [place] 852652-07-26 18:34:00 Test Item Value Reference Range Interpretation Comments Creatinine Lvl (test code = Creatinine 1.05 0.50-1.40 Lvl) [place] 852652-07-26 18:34:00 Test Item Value Reference Range Interpretation Comments Sodium Lvl (test code = Sodium Lvl) 132 135-145 [place] 852652-07-26 18:34:00 Test Item Value Reference Range Interpretation Comments Potassium Lvl (test code = Potassium 4.4 3.5-5.1 Lvl) [place] 852652-07-26 18:34:00 Test Item Value Reference Range Interpretation Comments Chloride Lvl (test code = Chloride Lvl) 96 95-109 [place] 852652-07-26 18:34:00 Test Item Value Reference Range Interpretation Comments CO2 (test code = CO2) 27 24-32 [place] 852652-07-26 18:34:00 Test Item Value Reference Range Interpretation Comments Calcium Lvl (test code = Calcium Lvl) 8.5 8.5-10.5 [place] 852652-07-26 18:34:00 Test Item Value Reference Range Interpretation Comments AGAP (test code = AGAP) 13.4 10.0-20.0 [place] 852652-07-26 18:34:00 Test Item Value Reference Range Interpretation Comments eGFR (test code = eGFR) 51 [place] 778932-07-26 18:34:00 Test Item Value Reference Range Interpretation Comments WBC (test code = WBC) 13.5 3.7-10.4 [place] 778932-07-26 18:34:00 Test Item Value Reference Range Interpretation Comments RBC (test code = RBC) 3.63 4.20-5.40 [place] 778932-07-26 18:34:00 Test Item Value Reference Range Interpretation Comments Hgb (test code = Hgb) 8.7 12.0-16.0 [place] [address]-07-26 18:34:00 Test Item Value Reference Range Interpretation Comments Hct (test code = Hct) 28.2 36.0-48.0 [place] [address]-07-26 18:34:00 Test Item Value Reference Range Interpretation Comments MCV (test code = MCV) 77.5 80.0-98.0 [place] [address]-07-26 18:34:00 Test Item Value Reference Range Interpretation Comments MCH (test code = MCH) 24.0 pg 27.0-31.0 [place] 778932-07-26 18:34:00 Test Item Value Reference Range Interpretation Comments MCHC (test code = MCHC) 30.9 32.0-36.0 [place] [address]-07-26 18:34:00 Test Item Value Reference Range Interpretation Comments RDW (test code = RDW) 21.2 11.5-14.5 [place] [address]-07-26 18:34:00 Test Item Value Reference Range Interpretation Comments Platelet (test code = Platelet) 324 133-450 [place] 778932-07-26 18:34:00 Test Item Value Reference Range Interpretation Comments MPV (test code = MPV) 7.6 7.4-10.4 [place] [address]-07-26 18:34:00 Test Item Value Reference Range Interpretation Comments Plt Morph (test code = Normal (06/14/22 1:34 Plt Morph) PM) [address]07-26 18:34:00 Test Item Value Reference Range Interpretation Comments Segs (test code = Segs) 89.0 45.0-75.0 [place] [address]-07-26 18:34:00 Test Item Value Reference Range Interpretation Comments Bands (test code = 3.0 See_Comment [Automat ed message] The Bands) system which ge nerated this result transmit lavon reference range : <=11.0. The reference r hugo was not used to interpr et this result as dionne l/abnormal. [place] 778932-07-26 18:34:00 Test Item Value Reference Range Interpretation Comments Lymphocytes (test code = Lymphocytes) 8.0 20.0-40.0 [place] [address]-07-26 18:34:00 Test Item Value Reference Range Interpretation Comments Monocytes (test code = Monocytes) 0.0 2.0-12.0 [place] [address]-07-26 18:34:00 Test Item Value Reference Range Interpretation Comments Neutrophils # (test code = Neutrophils 12.4 1.5-8.1 #) [place] [address]-07-26 18:34:00 Test Item Value Reference Range Interpretation Comments Lymphocytes # (test code = Lymphocytes 1.1 1.0-5.5 #) [place] [address]-07-26 18:34:00 Test Item Value Reference Range Interpretation Comments Monocytes # (test code 0.0 See_Comment [Aut omated message] The = Monocytes #) system which generated this result tra nsmitted reference range : <=0.8. The reference r hugo was not used to int erpret this result as normal/abnormal . [place] 778932-07-26 18:34:00 Test Item Value Reference Range Interpretation Comments Hypochrom (test code = 1+ (06/14/22 1:34 PM) Hypochrom) [place] [address]-07-26 18:34:00 Test Item Value Reference Range Interpretation Comments Glucose Lvl (test code = Glucose Lvl) 110 70-99 [place] [address]-07-26 18:34:00 Test Item Value Reference Range Interpretation Comments BUN (test code = BUN) 28 - [place] 852652-07-26 18:34:00 Test Item Value Reference Range Interpretation Comments Creatinine Lvl (test code = Creatinine 1.05 0.50-1.40 Lvl) [place] 852652-07-26 18:34:00 Test Item Value Reference Range Interpretation Comments Sodium Lvl (test code = Sodium Lvl) 132 135-145 [place] 852652-07-26 18:34:00 Test Item Value Reference Range Interpretation Comments Potassium Lvl (test code = Potassium 4.4 3.5-5.1 Lvl) [place] 852652-07-26 18:34:00 Test Item Value Reference Range Interpretation Comments Chloride Lvl (test code = Chloride Lvl) 96 95-109 [place] 852652-07-26 18:34:00 Test Item Value Reference Range Interpretation Comments CO2 (test code = CO2) 27 24-32 [place] 852652-07-26 18:34:00 Test Item Value Reference Range Interpretation Comments Calcium Lvl (test code = Calcium Lvl) 8.5 8.5-10.5 [place] 852652-07-26 18:34:00 Test Item Value Reference Range Interpretation Comments AGAP (test code = AGAP) 13.4 10.0-20.0 [place] 852652-07-26 18:34:00 Test Item Value Reference Range Interpretation Comments eGFR (test code = eGFR) 51 [place] 778932-07-26 18:34:00 Test Item Value Reference Range Interpretation Comments WBC (test code = WBC) 13.5 3.7-10.4 [place] 778932-07-26 18:34:00 Test Item Value Reference Range Interpretation Comments RBC (test code = RBC) 3.63 4.20-5.40 [place] 778932-07-26 18:34:00 Test Item Value Reference Range Interpretation Comments Hgb (test code = Hgb) 8.7 12.0-16.0 [place] 778932-07-26 18:34:00 Test Item Value Reference Range Interpretation Comments Hct (test code = Hct) 28.2 36.0-48.0 [place] 778932-07-26 18:34:00 Test Item Value Reference Range Interpretation Comments MCV (test code = MCV) 77.5 80.0-98.0 [place] 778932-07-26 18:34:00 Test Item Value Reference Range Interpretation Comments MCH (test code = MCH) 24.0 pg 27.0-31.0 [place] 778932-07-26 18:34:00 Test Item Value Reference Range Interpretation Comments MCHC (test code = MCHC) 30.9 32.0-36.0 [id number] 18:34:00 Test Item Value Reference Range Interpretation Comments RDW (test code = RDW) 21.2 11.5-14.5 [place] 778932-07-26 18:34:00 Test Item Value Reference Range Interpretation Comments Platelet (test code = Platelet) 324 133-450 [facility] CenterBksmptlQPKEAMQASQ5189-00-99 18:34:00 Test Item Value Reference Range Interpretation Comments MPV (test code = MPV) 7.6 7.4-10.4 [place] 778932-07-26 18:34:00 Test Item Value Reference Range Interpretation Comments Plt Morph (test code = Normal (06/14/22 1:34 Plt Morph) PM) [place] 778932-07-26 18:34:00 Test Item Value Reference Range Interpretation Comments Segs (test code = Segs) 89.0 45.0-75.0 [facility] [id number] 18:34:00 Test Item Value Reference Range Interpretation Comments Bands (test code = 3.0 See_Comment [Automat ed message] The Bands) system which ge nerated this result transmit lavon reference range : <=11.0. The reference r hugo was not used to interpr et this result as dionne l/abnormal. [place] 778932-07-26 18:34:00 Test Item Value Reference Range Interpretation Comments Lymphocytes (test code = Lymphocytes) 8.0 20.0-40.0 [place] [address]-07-26 18:34:00 Test Item Value Reference Range Interpretation Comments Monocytes (test code = Monocytes) 0.0 2.0-12.0 [place] [address]-07-26 18:34:00 Test Item Value Reference Range Interpretation Comments Neutrophils # (test code = Neutrophils 12.4 1.5-8.1 #) [address]07-26 18:34:00 Test Item Value Reference Range Interpretation Comments Lymphocytes # (test code = Lymphocytes 1.1 1.0-5.5 #) [place] [address]-07-26 18:34:00 Test Item Value Reference Range Interpretation Comments Monocytes # (test code 0.0 See_Comment [Aut omated message] The = Monocytes #) system which generated this result tra nsmitted reference range : <=0.8. The reference r hugo was not used to int erpret this result as normal/abnormal . [place] 778932-07-26 18:34:00 Test Item Value Reference Range Interpretation Comments Hypochrom (test code = 1+ (06/14/22 1:34 PM) Hypochrom) [place] 852652-07-26 18:34:00 Test Item Value Reference Range Interpretation Comments Glucose Lvl (test code = Glucose Lvl) 110 70-99 [place] 852652-07-26 18:34:00 Test Item Value Reference Range Interpretation Comments BUN (test code = BUN) 28 7-22 [place] 852652-07-26 18:34:00 Test Item Value Reference Range Interpretation Comments Creatinine Lvl (test code = Creatinine 1.05 0.50-1.40 Lvl) [place] 852652-07-26 18:34:00 Test Item Value Reference Range Interpretation Comments Sodium Lvl (test code = Sodium Lvl) 132 135-145 [place] 852652-07-26 18:34:00 Test Item Value Reference Range Interpretation Comments Potassium Lvl (test code = Potassium 4.4 3.5-5.1 Lvl) [place] 852652-07-26 18:34:00 Test Item Value Reference Range Interpretation Comments Chloride Lvl (test code = Chloride Lvl) 96 95-109 [place] 852652-07-26 18:34:00 Test Item Value Reference Range Interpretation Comments CO2 (test code = CO2) 27 24-32 [place] 852652-07-26 18:34:00 Test Item Value Reference Range Interpretation Comments Calcium Lvl (test code = Calcium Lvl) 8.5 8.5-10.5 [place] 852652-07-26 18:34:00 Test Item Value Reference Range Interpretation Comments AGAP (test code = AGAP) 13.4 10.0-20.0 [place] 852652-07-26 18:34:00 Test Item Value Reference Range Interpretation Comments eGFR (test code = eGFR) 51 [place] 778932-07-26 18:34:00 Test Item Value Reference Range Interpretation Comments WBC (test code = WBC) 13.5 3.7-10.4 [place] 778932-07-26 18:34:00 Test Item Value Reference Range Interpretation Comments RBC (test code = RBC) 3.63 4.20-5.40 [place] 778932-07-26 18:34:00 Test Item Value Reference Range Interpretation Comments Hgb (test code = Hgb) 8.7 12.0-16.0 [place] [address]-07-26 18:34:00 Test Item Value Reference Range Interpretation Comments Hct (test code = Hct) 28.2 36.0-48.0 [place] [address]-07-26 18:34:00 Test Item Value Reference Range Interpretation Comments MCV (test code = MCV) 77.5 80.0-98.0 [place] [address]-07-26 18:34:00 Test Item Value Reference Range Interpretation Comments MCH (test code = MCH) 24.0 pg 27.0-31.0 [place] 778932-07-26 18:34:00 Test Item Value Reference Range Interpretation Comments MCHC (test code = MCHC) 30.9 32.0-36.0 [place] [address]-07-26 18:34:00 Test Item Value Reference Range Interpretation Comments RDW (test code = RDW) 21.2 11.5-14.5 [place] [address]-07-26 18:34:00 Test Item Value Reference Range Interpretation Comments Platelet (test code = Platelet) 324 133-450 [place] 778932-07-26 18:34:00 Test Item Value Reference Range Interpretation Comments MPV (test code = MPV) 7.6 7.4-10.4 [place] [address]-07-26 18:34:00 Test Item Value Reference Range Interpretation Comments Plt Morph (test code = Normal (06/14/22 1:34 Plt Morph) PM) [address]07-26 18:34:00 Test Item Value Reference Range Interpretation Comments Segs (test code = Segs) 89.0 45.0-75.0 [place] [address]-07-26 18:34:00 Test Item Value Reference Range Interpretation Comments Bands (test code = 3.0 See_Comment [Automat ed message] The Bands) system which ge nerated this result transmit lavon reference range : <=11.0. The reference r hugo was not used to interpr et this result as dionne l/abnormal. [place] 778932-07-26 18:34:00 Test Item Value Reference Range Interpretation Comments Lymphocytes (test code = Lymphocytes) 8.0 20.0-40.0 [place] [address]-07-26 18:34:00 Test Item Value Reference Range Interpretation Comments Monocytes (test code = Monocytes) 0.0 2.0-12.0 [place] [address]-07-26 18:34:00 Test Item Value Reference Range Interpretation Comments Neutrophils # (test code = Neutrophils 12.4 1.5-8.1 #) [place] [address]-07-26 18:34:00 Test Item Value Reference Range Interpretation Comments Lymphocytes # (test code = Lymphocytes 1.1 1.0-5.5 #) [place] [address]-07-26 18:34:00 Test Item Value Reference Range Interpretation Comments Monocytes # (test code 0.0 See_Comment [Aut omated message] The = Monocytes #) system which generated this result tra nsmitted reference range : <=0.8. The reference r hugo was not used to int erpret this result as normal/abnormal . [place] 778932-07-26 18:34:00 Test Item Value Reference Range Interpretation Comments Hypochrom (test code = 1+ (06/14/22 1:34 PM) Hypochrom) [place] [address]-07-26 18:34:00 Test Item Value Reference Range Interpretation Comments Glucose Lvl (test code = Glucose Lvl) 110 70-99 [place] [address]-07-26 18:34:00 Test Item Value Reference Range Interpretation Comments BUN (test code = BUN) 28 - [place] 852652-07-26 18:34:00 Test Item Value Reference Range Interpretation Comments Creatinine Lvl (test code = Creatinine 1.05 0.50-1.40 Lvl) [place] 852652-07-26 18:34:00 Test Item Value Reference Range Interpretation Comments Sodium Lvl (test code = Sodium Lvl) 132 135-145 [place] 852652-07-26 18:34:00 Test Item Value Reference Range Interpretation Comments Potassium Lvl (test code = Potassium 4.4 3.5-5.1 Lvl) [place] 852652-07-26 18:34:00 Test Item Value Reference Range Interpretation Comments Chloride Lvl (test code = Chloride Lvl) 96 95-109 [place] 852652-07-26 18:34:00 Test Item Value Reference Range Interpretation Comments CO2 (test code = CO2) 27 24-32 [place] 852652-07-26 18:34:00 Test Item Value Reference Range Interpretation Comments Calcium Lvl (test code = Calcium Lvl) 8.5 8.5-10.5 [place] 852652-07-26 18:34:00 Test Item Value Reference Range Interpretation Comments AGAP (test code = AGAP) 13.4 10.0-20.0 [place] 852652-07-26 18:34:00 Test Item Value Reference Range Interpretation Comments eGFR (test code = eGFR) 51 [place] 778932-07-26 18:34:00 Test Item Value Reference Range Interpretation Comments WBC (test code = WBC) 13.5 3.7-10.4 [place] 778932-07-26 18:34:00 Test Item Value Reference Range Interpretation Comments RBC (test code = RBC) 3.63 4.20-5.40 [place] 778932-07-26 18:34:00 Test Item Value Reference Range Interpretation Comments Hgb (test code = Hgb) 8.7 12.0-16.0 [place] 778932-07-26 18:34:00 Test Item Value Reference Range Interpretation Comments Hct (test code = Hct) 28.2 36.0-48.0 [place] 778932-07-26 18:34:00 Test Item Value Reference Range Interpretation Comments MCV (test code = MCV) 77.5 80.0-98.0 [place] 778932-07-26 18:34:00 Test Item Value Reference Range Interpretation Comments MCH (test code = MCH) 24.0 pg 27.0-31.0 [place] 778932-07-26 18:34:00 Test Item Value Reference Range Interpretation Comments MCHC (test code = MCHC) 30.9 32.0-36.0 [facility] [id number] 18:34:00 Test Item Value Reference Range Interpretation Comments RDW (test code = RDW) 21.2 11.5-14.5 [place] 778932-07-26 18:34:00 Test Item Value Reference Range Interpretation Comments Platelet (test code = Platelet) 324 133-450 [facility] CenterXxymrtrRKYPRSWCGB2378-07-05 18:34:00 Test Item Value Reference Range Interpretation Comments MPV (test code = MPV) 7.6 7.4-10.4 [place] 778932-07-26 18:34:00 Test Item Value Reference Range Interpretation Comments Plt Morph (test code = Normal (06/14/22 1:34 Plt Morph) PM) [place] 778932-07-26 18:34:00 Test Item Value Reference Range Interpretation Comments Segs (test code = Segs) 89.0 45.0-75.0 [facility] CenterIqpizcjDDREVMEVZW6196-30-49 18:34:00 Test Item Value Reference Range Interpretation Comments Bands (test code = 3.0 See_Comment [Automat ed message] The Bands) system which ge nerated this result transmit lavon reference range : <=11.0. The reference r hugo was not used to interpr et this result as dionne l/abnormal. [place] 778932-07-26 18:34:00 Test Item Value Reference Range Interpretation Comments Lymphocytes (test code = Lymphocytes) 8.0 20.0-40.0 [place] [address]-07-26 18:34:00 Test Item Value Reference Range Interpretation Comments Monocytes (test code = Monocytes) 0.0 2.0-12.0 [place] [address]-07-26 18:34:00 Test Item Value Reference Range Interpretation Comments Neutrophils # (test code = Neutrophils 12.4 1.5-8.1 #) [address]07-26 18:34:00 Test Item Value Reference Range Interpretation Comments Lymphocytes # (test code = Lymphocytes 1.1 1.0-5.5 #) [place] [address]-07-26 18:34:00 Test Item Value Reference Range Interpretation Comments Monocytes # (test code 0.0 See_Comment [Aut omated message] The = Monocytes #) system which generated this result tra nsmitted reference range : <=0.8. The reference r hugo was not used to int erpret this result as normal/abnormal . [place] 778932-07-26 18:34:00 Test Item Value Reference Range Interpretation Comments Hypochrom (test code = 1+ (06/14/22 1:34 PM) Hypochrom) [place] 852652-07-26 18:34:00 Test Item Value Reference Range Interpretation Comments Glucose Lvl (test code = Glucose Lvl) 110 70-99 [place] 852652-07-26 18:34:00 Test Item Value Reference Range Interpretation Comments BUN (test code = BUN) 28 7-22 [place] 852652-07-26 18:34:00 Test Item Value Reference Range Interpretation Comments Creatinine Lvl (test code = Creatinine 1.05 0.50-1.40 Lvl) [place] 852652-07-26 18:34:00 Test Item Value Reference Range Interpretation Comments Sodium Lvl (test code = Sodium Lvl) 132 135-145 [place] 852652-07-26 18:34:00 Test Item Value Reference Range Interpretation Comments Potassium Lvl (test code = Potassium 4.4 3.5-5.1 Lvl) [place] 852652-07-26 18:34:00 Test Item Value Reference Range Interpretation Comments Chloride Lvl (test code = Chloride Lvl) 96 95-109 [place] 852652-07-26 18:34:00 Test Item Value Reference Range Interpretation Comments CO2 (test code = CO2) 27 24-32 [place] 852652-07-26 18:34:00 Test Item Value Reference Range Interpretation Comments Calcium Lvl (test code = Calcium Lvl) 8.5 8.5-10.5 [place] 852652-07-26 18:34:00 Test Item Value Reference Range Interpretation Comments AGAP (test code = AGAP) 13.4 10.0-20.0 [place] 852652-07-26 18:34:00 Test Item Value Reference Range Interpretation Comments eGFR (test code = eGFR) 51 [place] 778932-07-26 18:34:00 Test Item Value Reference Range Interpretation Comments WBC (test code = WBC) 13.5 3.7-10.4 [place] 778932-07-26 18:34:00 Test Item Value Reference Range Interpretation Comments RBC (test code = RBC) 3.63 4.20-5.40 [place] 778932-07-26 18:34:00 Test Item Value Reference Range Interpretation Comments Hgb (test code = Hgb) 8.7 12.0-16.0 [place] [address]-07-26 18:34:00 Test Item Value Reference Range Interpretation Comments Hct (test code = Hct) 28.2 36.0-48.0 [place] [address]-07-26 18:34:00 Test Item Value Reference Range Interpretation Comments MCV (test code = MCV) 77.5 80.0-98.0 [place] [address]-07-26 18:34:00 Test Item Value Reference Range Interpretation Comments MCH (test code = MCH) 24.0 pg 27.0-31.0 [place] 778932-07-26 18:34:00 Test Item Value Reference Range Interpretation Comments MCHC (test code = MCHC) 30.9 32.0-36.0 [place] [address]-07-26 18:34:00 Test Item Value Reference Range Interpretation Comments RDW (test code = RDW) 21.2 11.5-14.5 [place] [address]-07-26 18:34:00 Test Item Value Reference Range Interpretation Comments Platelet (test code = Platelet) 324 133-450 [place] 778932-07-26 18:34:00 Test Item Value Reference Range Interpretation Comments MPV (test code = MPV) 7.6 7.4-10.4 [place] [address]-07-26 18:34:00 Test Item Value Reference Range Interpretation Comments Plt Morph (test code = Normal (06/14/22 1:34 Plt Morph) PM) [address]07-26 18:34:00 Test Item Value Reference Range Interpretation Comments Segs (test code = Segs) 89.0 45.0-75.0 [place] [address]-07-26 18:34:00 Test Item Value Reference Range Interpretation Comments Bands (test code = 3.0 See_Comment [Automat ed message] The Bands) system which ge nerated this result transmit lavon reference range : <=11.0. The reference r hugo was not used to interpr et this result as dionne l/abnormal. [place] 778932-07-26 18:34:00 Test Item Value Reference Range Interpretation Comments Lymphocytes (test code = Lymphocytes) 8.0 20.0-40.0 [place] [address]-07-26 18:34:00 Test Item Value Reference Range Interpretation Comments Monocytes (test code = Monocytes) 0.0 2.0-12.0 [place] [address]-07-26 18:34:00 Test Item Value Reference Range Interpretation Comments Neutrophils # (test code = Neutrophils 12.4 1.5-8.1 #) [place] [address]-07-26 18:34:00 Test Item Value Reference Range Interpretation Comments Lymphocytes # (test code = Lymphocytes 1.1 1.0-5.5 #) [place] [address]-07-26 18:34:00 Test Item Value Reference Range Interpretation Comments Monocytes # (test code 0.0 See_Comment [Aut omated message] The = Monocytes #) system which generated this result tra nsmitted reference range : <=0.8. The reference r hugo was not used to int erpret this result as normal/abnormal . [id number] 18:34:00 Test Item Value Reference Range Interpretation Comments Hypochrom (test code = 1+ (06/14/22 1:34 PM) Hypochrom) [facility]2022-07-25 15:00:00 Test Item Value Reference Range Interpretation Comments Albumin BF (test code = Albumin BF) 0.6 [facility]2022-07-25 15:00:00 Test Item Value Reference Range Interpretation Comments Alb BF Type (test Pleural *NA*(06/13/22 code = Alb BF Type) 10:00 AM) [facility]2022-07-25 15:00:00 Test Item Value Reference Range Interpretation Comments CellCnt BF Type (test Thorac[place] (06/13/22 10:00 code = CellCnt BF AM) Type) [facility]2022-07-25 15:00:00 Test Item Value Reference Range Interpretation Comments Color BF (test code = Yellow (06/13/22 10:00 Color BF) AM) [facility]2022-07-25 15:00:00 Test Item Value Reference Range Interpretation Comments Clarity BF (test code = Clear (06/13/22 10:00 Clarity BF) AM) [facility]2022-07-25 15:00:00 Test Item Value Reference Range Interpretation Comments Supernat BF (test code = Yellow *ABN*(06/13/22 Supernat BF) 10:00 AM) [facility]2022-07-25 15:00:00 Test Item Value Reference Range Interpretation Comments Nucleated Cells BF (test code = 273 Nucleated Cells BF) [facility]2022-07-25 15:00:00 Test Item Value Reference Range Interpretation Comments RBC BF (test code = RBC BF) 419 [facility]2022-07-25 15:00:00 Test Item Value Reference Range Interpretation Comments Neutrophils BF (test code = Neutrophils [address]) [facility]2022-07-25 15:00:00 Test Item Value Reference Range Interpretation Comments Lymph BF (test code = Lymph BF) 36 [facility]2022-07-25 15:00:00 Test Item Value Reference Range Interpretation Comments Macrophage BF (test code = Macrophage 48 BF) [facility] [id number] 15:00:00 Test Item Value Reference Range Interpretation Comments Meso BF (test code = Meso BF) 6 [facility]2022-07-25 15:00:00 Test Item Value Reference Range Interpretation Comments Comment BF (test Differential confirmed. code = Comment BF) mesothlial cells and mixed inflammation. performed by Dr. Rosendo Chapa [facility] [id number] 15:00:00 Test Item Value Reference Range Interpretation Comments Glucose BF (test code = Glucose BF) 154 [facility] [id number] 15:00:00 Test Item Value Reference Range Interpretation Comments Gluc BF Type (test Pleural *NA*(06/13/22 code = Gluc BF Type) 10:00 AM) [facility]2022-07-25 15:00:00 Test Item Value Reference Range Interpretation Comments LDH BF (test code = LDH BF) 74 [facility] [id number] 15:00:00 Test Item Value Reference Range Interpretation Comments LDH BF Type (test Pleural *NA*(06/13/22 code = LDH BF Type) 10:00 AM) [facility] [id number] 15:00:00 Test Item Value Reference Range Interpretation Comments pH BF Type (test code Pleural (06/13/22 10:00 = pH BF Type) AM) [facility]2022-07-25 15:00:00 Test Item Value Reference Range Interpretation Comments pH BF (test code = pH BF) 8.[address] [facility] [id number] 15:00:00 Test Item Value Reference Range Interpretation Comments Protein BF (test code = Protein BF) 1.0 [facility] [id number] 15:00:00 Test Item Value Reference Range Interpretation Comments Prot BF Type (test Pleural *NA*(06/13/22 code = Prot BF Type) 10:00 AM) [facility] [id number] 15:00:00 Test Item Value Reference Range Interpretation Comments Gram Stain Report Few WBC's No Organisms (test code = Gram Seen Stain Report) [facility] Aspirate/Body Fluid/[id number] 15:00:00 Test Item Value Reference Range Interpretation Comments Culture: Aspirate/Body Fluid/Tissue No Growth (test code = Culture: Aspirate/Body Fluid/Tissue) [facility]2022-07-25 15:00:00 Test Item Value Reference Range Interpretation Comments Albumin BF (test code = Albumin BF) 0.6 [facility]2022-07-25 15:00:00 Test Item Value Reference Range Interpretation Comments Alb BF Type (test Pleural *NA*(06/13/22 code = Alb BF Type) 10:00 AM) [facility]2022-07-25 15:00:00 Test Item Value Reference Range Interpretation Comments CellCnt BF Type (test [place] (06/13/22 10:00 code = CellCnt BF AM) Type) [facility]2022-07-25 15:00:00 Test Item Value Reference Range Interpretation Comments Color BF (test code = Yellow (06/13/22 10:00 Color BF) AM) [facility]2022-07-25 15:00:00 Test Item Value Reference Range Interpretation Comments Clarity BF (test code = Clear (06/13/22 10:00 Clarity BF) AM) [facility]2022-07-25 15:00:00 Test Item Value Reference Range Interpretation Comments Supernat BF (test code = Yellow *ABN*(06/13/22 Supernat BF) 10:00 AM) [facility]2022-07-25 15:00:00 Test Item Value Reference Range Interpretation Comments Nucleated Cells BF (test code = 273 Nucleated Cells BF) [facility]2022-07-25 15:00:00 Test Item Value Reference Range Interpretation Comments RBC BF (test code = RBC BF) 419 [facility]2022-07-25 15:00:00 Test Item Value Reference Range Interpretation Comments Neutrophils BF (test code = Neutrophils [address]) [facility]2022-07-25 15:00:00 Test Item Value Reference Range Interpretation Comments Lymph BF (test code = Lymph BF) 36 [facility]2022-07-25 15:00:00 Test Item Value Reference Range Interpretation Comments Macrophage BF (test code = Macrophage [address]) [facility]2022-07-25 15:00:00 Test Item Value Reference Range Interpretation Comments Meso BF (test code = Meso BF) 6 [facility]2022-07-25 15:00:00 Test Item Value Reference Range Interpretation Comments Comment BF (test Differential confirmed. code = Comment BF) mesothlial cells and mixed inflammation. performed by Dr. Rosendo Chapa [facility]2022-07-25 15:00:00 Test Item Value Reference Range Interpretation Comments Glucose BF (test code = Glucose BF) 154 [facility] [id number] 15:00:00 Test Item Value Reference Range Interpretation Comments Gluc BF Type (test Pleural *NA*(06/13/22 code = Gluc BF Type) 10:00 AM) [facility] [id number] 15:00:00 Test Item Value Reference Range Interpretation Comments LDH BF (test code = LDH BF) 74 [facility]2022-07-25 15:00:00 Test Item Value Reference Range Interpretation Comments LDH BF Type (test Pleural *NA*(06/13/22 code = LDH BF Type) 10:00 AM) [facility]2022-07-25 15:00:00 Test Item Value Reference Range Interpretation Comments pH BF Type (test code Pleural (06/13/22 10:00 = pH BF Type) AM) [facility]2022-07-25 15:00:00 Test Item Value Reference Range Interpretation Comments pH BF (test code = pH BF) 8.[address] [facility]2022-07-25 15:00:00 Test Item Value Reference Range Interpretation Comments Protein BF (test code = Protein BF) 1.0 [facility]2022-07-25 15:00:00 Test Item Value Reference Range Interpretation Comments Prot BF Type (test Pleural *NA*(06/13/22 code = Prot BF Type) 10:00 AM) [facility] [id number] 15:00:00 Test Item Value Reference Range Interpretation Comments Gram Stain Report Few WBC's No Organisms (test code = Gram Seen Stain Report) [facility] Aspirate/Body Fluid/[id number] 15:00:00 Test Item Value Reference Range Interpretation Comments Culture: Aspirate/Body Fluid/Tissue No Growth (test code = Culture: Aspirate/Body Fluid/Tissue) [facility]2022-07-25 15:00:00 Test Item Value Reference Range Interpretation Comments Albumin BF (test code = Albumin BF) 0.6 [facility] [id number] 15:00:00 Test Item Value Reference Range Interpretation Comments Alb BF Type (test Pleural *NA*(06/13/22 code = Alb BF Type) 10:00 AM) [facility] [id number] 15:00:00 Test Item Value Reference Range Interpretation Comments CellCnt BF Type (test [place] (06/13/22 10:00 code = CellCnt BF AM) Type) [facility]2022-07-25 15:00:00 Test Item Value Reference Range Interpretation Comments Color BF (test code = Yellow (06/13/22 10:00 Color BF) AM) [facility] [facility] [id number] 15:00:00 Test Item Value Reference Range Interpretation Comments Clarity BF (test code = Clear (06/13/22 10:00 Clarity BF) AM) [facility] [id number] 15:00:00 Test Item Value Reference Range Interpretation Comments Supernat BF (test code = Yellow *ABN*(06/13/22 Supernat BF) 10:00 AM) [facility] [id number] 15:00:00 Test Item Value Reference Range Interpretation Comments Nucleated Cells BF (test code = 273 Nucleated Cells BF) [facility] [id number] 15:00:00 Test Item Value Reference Range Interpretation Comments RBC BF (test code = RBC BF) 419 [facility] [id number] 15:00:00 Test Item Value Reference Range Interpretation Comments Neutrophils BF (test code = Neutrophils 10 [address]) [facility] [id number] 15:00:00 Test Item Value Reference Range Interpretation Comments Lymph BF (test code = Lymph BF) 36 [facility] [id number] 15:00:00 Test Item Value Reference Range Interpretation Comments Macrophage BF (test code = Macrophage 48 BF) [facility] [id number] 15:00:00 Test Item Value Reference Range Interpretation Comments Meso BF (test code = Meso BF) 6 [facility] [id number] 15:00:00 Test Item Value Reference Range Interpretation Comments Comment BF (test Differential confirmed. code = Comment BF) mesothlial cells and mixed inflammation. performed by Dr. Rosendo Chapa [facility]2022-07-25 15:00:00 Test Item Value Reference Range Interpretation Comments Glucose BF (test code = Glucose BF) 154 [facility] [id number] 15:00:00 Test Item Value Reference Range Interpretation Comments Gluc BF Type (test Pleural *NA*(06/13/22 code = Gluc BF Type) 10:00 AM) [facility] [id number] 15:00:00 Test Item Value Reference Range Interpretation Comments LDH BF (test code = LDH BF) 74 [facility] [id number] 15:00:00 Test Item Value Reference Range Interpretation Comments LDH BF Type (test Pleural *NA*(06/13/22 code = LDH BF Type) 10:00 AM) [facility]2022-07-25 15:00:00 Test Item Value Reference Range Interpretation Comments pH BF Type (test code Pleural (06/13/22 10:00 = pH BF Type) AM) [facility]2022-07-25 15:00:00 Test Item Value Reference Range Interpretation Comments pH BF (test code = pH BF) 8.[address] [facility] [id number] 15:00:00 Test Item Value Reference Range Interpretation Comments Protein BF (test code = Protein BF) 1.0 [facility]2022-07-25 15:00:00 Test Item Value Reference Range Interpretation Comments Prot BF Type (test Pleural *NA*(06/13/22 code = Prot BF Type) 10:00 AM) [facility] [id number] 15:00:00 Test Item Value Reference Range Interpretation Comments Gram Stain Report Few WBC's No Organisms (test code = Gram Seen Stain Report) [facility] Aspirate/Body Fluid/[id number] 15:00:00 Test Item Value Reference Range Interpretation Comments Culture: Aspirate/Body Fluid/Tissue No Growth (test code = Culture: Aspirate/Body Fluid/Tissue) [facility] [id number] 15:00:00 Test Item Value Reference Range Interpretation Comments Albumin BF (test code = Albumin BF) 0.6 [facility]2022-07-25 15:00:00 Test Item Value Reference Range Interpretation Comments Alb BF Type (test Pleural *NA*(06/13/22 code = Alb BF Type) 10:00 AM) [facility]2022-07-25 15:00:00 Test Item Value Reference Range Interpretation Comments CellCnt BF Type (test Thoracen (06/13/22 10:00 code = CellCnt BF AM) Type) [facility]2022-07-25 15:00:00 Test Item Value Reference Range Interpretation Comments Color BF (test code = Yellow (06/13/22 10:00 Color BF) AM) [facility]2022-07-25 15:00:00 Test Item Value Reference Range Interpretation Comments Clarity BF (test code = Clear (06/13/22 10:00 Clarity BF) AM) [facility]2022-07-25 15:00:00 Test Item Value Reference Range Interpretation Comments Supernat BF (test code = Yellow *ABN*(06/13/22 Supernat BF) 10:00 AM) [facility]2022-07-25 15:00:00 Test Item Value Reference Range Interpretation Comments Nucleated Cells BF (test code = 273 Nucleated Cells BF) [facility]2022-07-25 15:00:00 Test Item Value Reference Range Interpretation Comments RBC BF (test code = RBC BF) 419 [facility]2022-07-25 15:00:00 Test Item Value Reference Range Interpretation Comments Neutrophils BF (test code = Neutrophils 10 [address]) [facility]2022-07-25 15:00:00 Test Item Value Reference Range Interpretation Comments Lymph BF (test code = Lymph BF) 36 [facility]2022-07-25 15:00:00 Test Item Value Reference Range Interpretation Comments Macrophage BF (test code = Macrophage 48 [address]) [facility]2022-07-25 15:00:00 Test Item Value Reference Range Interpretation Comments Meso BF (test code = Meso BF) 6 [facility]2022-07-25 15:00:00 Test Item Value Reference Range Interpretation Comments Comment BF (test Differential confirmed. code = Comment BF) mesothlial cells and mixed inflammation. performed by Dr. Rosendo Chapa [facility]2022-07-25 15:00:00 Test Item Value Reference Range Interpretation Comments Glucose BF (test code = Glucose BF) 154 [facility]2022-07-25 15:00:00 Test Item Value Reference Range Interpretation Comments Gluc BF Type (test Pleural *NA*(06/13/22 code = Gluc BF Type) 10:00 AM) [facility] [id number] 15:00:00 Test Item Value Reference Range Interpretation Comments LDH BF (test code = LDH BF) 74 [facility] [id number] 15:00:00 Test Item Value Reference Range Interpretation Comments LDH BF Type (test Pleural *NA*(06/13/22 code = LDH BF Type) 10:00 AM) [facility] [id number] 15:00:00 Test Item Value Reference Range Interpretation Comments pH BF Type (test code Pleural (06/13/22 10:00 = pH BF Type) AM) [facility] [id number] 15:00:00 Test Item Value Reference Range Interpretation Comments pH BF (test code = pH BF) 8.00 1 [facility] [id number] 15:00:00 Test Item Value Reference Range Interpretation Comments Protein BF (test code = Protein BF) 1.0 [facility] [id number] 15:00:00 Test Item Value Reference Range Interpretation Comments Prot BF Type (test Pleural *NA*(06/13/22 code = Prot BF Type) 10:00 AM) [facility] [id number] 15:00:00 Test Item Value Reference Range Interpretation Comments Gram Stain Report Few WBC's No Organisms (test code = Gram Seen Stain Report) [facility]: Aspirate/Body Fluid/[id number] 15:00:00 Test Item Value Reference Range Interpretation Comments Culture: Aspirate/Body Fluid/Tissue No Growth (test code = Culture: Aspirate/Body Fluid/Tissue) [facility] [id number] 15:00:00 Test Item Value Reference Range Interpretation Comments Albumin BF (test code = Albumin BF) 0.6 [facility] [id number] 15:00:00 Test Item Value Reference Range Interpretation Comments Alb BF Type (test Pleural *NA*(06/13/22 code = Alb BF Type) 10:00 AM) [facility] [id number] 15:00:00 Test Item Value Reference Range Interpretation Comments CellCnt BF Type (test Thoracen (06/13/22 10:00 code = CellCnt BF AM) Type) [facility]2022-07-25 15:00:00 Test Item Value Reference Range Interpretation Comments Color BF (test code = Yellow (06/13/22 10:00 Color BF) AM) [facility]2022-07-25 15:00:00 Test Item Value Reference Range Interpretation Comments Clarity BF (test code = Clear (06/13/22 10:00 Clarity BF) AM) [facility]2022-07-25 15:00:00 Test Item Value Reference Range Interpretation Comments Supernat BF (test code = Yellow *ABN*(06/13/22 Supernat BF) 10:00 AM) [facility]2022-07-25 15:00:00 Test Item Value Reference Range Interpretation Comments Nucleated Cells BF (test code = 273 Nucleated Cells BF) [facility]2022-07-25 15:00:00 Test Item Value Reference Range Interpretation Comments RBC BF (test code = RBC BF) 419 [facility]2022-07-25 15:00:00 Test Item Value Reference Range Interpretation Comments Neutrophils BF (test code = Neutrophils 10 [address]) [facility]2022-07-25 15:00:00 Test Item Value Reference Range Interpretation Comments Lymph BF (test code = Lymph BF) 36 [facility]2022-07-25 15:00:00 Test Item Value Reference Range Interpretation Comments Macrophage BF (test code = Macrophage 48 [address]) [facility]2022-07-25 15:00:00 Test Item Value Reference Range Interpretation Comments Meso BF (test code = Meso BF) 6 [facility]2022-07-25 15:00:00 Test Item Value Reference Range Interpretation Comments Comment BF (test Differential confirmed. code = Comment BF) mesothlial cells and mixed inflammation. performed by Dr. Rosendo Chapa [facility]2022-07-25 15:00:00 Test Item Value Reference Range Interpretation Comments Glucose BF (test code = Glucose BF) 154 [facility]2022-07-25 15:00:00 Test Item Value Reference Range Interpretation Comments Gluc BF Type (test Pleural *NA*(06/13/22 code = Gluc BF Type) 10:00 AM) [facility]2022-07-25 15:00:00 Test Item Value Reference Range Interpretation Comments LDH BF (test code = LDH BF) 74 [facility] [id number] 15:00:00 Test Item Value Reference Range Interpretation Comments LDH BF Type (test Pleural *NA*(06/13/22 code = LDH BF Type) 10:00 AM) [facility] [id number] 15:00:00 Test Item Value Reference Range Interpretation Comments pH BF Type (test code Pleural (06/13/22 10:00 = pH BF Type) AM) [facility] [id number] 15:00:00 Test Item Value Reference Range Interpretation Comments pH BF (test code = pH BF) 8.00 1 [facility] [id number] 15:00:00 Test Item Value Reference Range Interpretation Comments Protein BF (test code = Protein BF) 1.0 [facility] [id number] 15:00:00 Test Item Value Reference Range Interpretation Comments Prot BF Type (test Pleural *NA*(06/13/22 code = Prot BF Type) 10:00 AM) [facility] [id number] 15:00:00 Test Item Value Reference Range Interpretation Comments Gram Stain Report Few WBC's No Organisms (test code = Gram Seen Stain Report) [facility]villeCulture: Aspirate/Body Fluid/[id number] 15:00:00 Test Item Value Reference Range Interpretation Comments Culture: Aspirate/Body Fluid/Tissue No Growth (test code = Culture: Aspirate/Body Fluid/Tissue) [facility] [id number] 15:00:00 Test Item Value Reference Range Interpretation Comments Albumin BF (test code = Albumin BF) 0.6 [facility] [id number] 15:00:00 Test Item Value Reference Range Interpretation Comments Alb BF Type (test Pleural *NA*(06/13/22 code = Alb BF Type) 10:00 AM) [facility] [id number] 15:00:00 Test Item Value Reference Range Interpretation Comments CellCnt BF Type (test Thoracen (06/13/22 10:00 code = CellCnt BF AM) Type) [facility] [id number] 15:00:00 Test Item Value Reference Range Interpretation Comments Color BF (test code = Yellow (06/13/22 10:00 Color BF) AM) [facility]2022-07-25 15:00:00 Test Item Value Reference Range Interpretation Comments Clarity BF (test code = Clear (06/13/22 10:00 Clarity BF) AM) [facility]2022-07-25 15:00:00 Test Item Value Reference Range Interpretation Comments Supernat BF (test code = Yellow *ABN*(06/13/22 Supernat BF) 10:00 AM) [facility]2022-07-25 15:00:00 Test Item Value Reference Range Interpretation Comments Nucleated Cells BF (test code = 273 Nucleated Cells BF) [facility]2022-07-25 15:00:00 Test Item Value Reference Range Interpretation Comments RBC BF (test code = RBC BF) 419 [facility]2022-07-25 15:00:00 Test Item Value Reference Range Interpretation Comments Neutrophils BF (test code = Neutrophils 10 BF) [facility]2022-07-25 15:00:00 Test Item Value Reference Range Interpretation Comments Lymph BF (test code = Lymph BF) 36 [facility]2022-07-25 15:00:00 Test Item Value Reference Range Interpretation Comments Macrophage BF (test code = Macrophage 48 BF) [facility]2022-07-25 15:00:00 Test Item Value Reference Range Interpretation Comments Meso BF (test code = Meso BF) 6 [facility]2022-07-25 15:00:00 Test Item Value Reference Range Interpretation Comments Comment BF (test Differential confirmed. code = Comment BF) mesothlial cells and mixed inflammation. performed by Dr. Rosendo Chapa [facility]2022-07-25 15:00:00 Test Item Value Reference Range Interpretation Comments Glucose BF (test code = Glucose BF) 154 [facility]2022-07-25 15:00:00 Test Item Value Reference Range Interpretation Comments Gluc BF Type (test Pleural *NA*(06/13/22 code = Gluc BF Type) 10:00 AM) [facility]2022-07-25 15:00:00 Test Item Value Reference Range Interpretation Comments LDH BF (test code = LDH BF) 74 [facility]2022-07-25 15:00:00 Test Item Value Reference Range Interpretation Comments LDH BF Type (test Pleural *NA*(06/13/22 code = LDH BF Type) 10:00 AM) [facility] [id number] 15:00:00 Test Item Value Reference Range Interpretation Comments pH BF Type (test code Pleural (06/13/22 10:00 = pH BF Type) AM) [facility] [id number] 15:00:00 Test Item Value Reference Range Interpretation Comments pH BF (test code = pH BF) 8.00 1 [facility] [id number] 15:00:00 Test Item Value Reference Range Interpretation Comments Protein BF (test code = Protein BF) 1.0 [facility] [id number] 15:00:00 Test Item Value Reference Range Interpretation Comments Prot BF Type (test Pleural *NA*(06/13/22 code = Prot BF Type) 10:00 AM) [facility] [id number] 15:00:00 Test Item Value Reference Range Interpretation Comments Gram Stain Report Few WBC's No Organisms (test code = Gram Seen Stain Report) [facility]: Aspirate/Body Fluid/[id number] 15:00:00 Test Item Value Reference Range Interpretation Comments Culture: Aspirate/Body Fluid/Tissue No Growth (test code = Culture: Aspirate/Body Fluid/Tissue) [id number] 15:00:00 Test Item Value Reference Range Interpretation Comments Albumin BF (test code = Albumin BF) 0.6 [facility] [id number] 15:00:00 Test Item Value Reference Range Interpretation Comments Alb BF Type (test Pleural *NA*(06/13/22 code = Alb BF Type) 10:00 AM) [facility]Call[facility] [id number] 15:00:00 Test Item Value Reference Range Interpretation Comments CellCnt BF Type (test Thoracen (06/13/22 10:00 code = CellCnt BF AM) Type) [facility] [id number] 15:00:00 Test Item Value Reference Range Interpretation Comments Color BF (test code = Yellow (06/13/22 10:00 Color BF) AM) [id number] 15:00:00 Test Item Value Reference Range Interpretation Comments Clarity BF (test code = Clear (06/13/22 10:00 Clarity BF) AM) [facility]2022-07-25 15:00:00 Test Item Value Reference Range Interpretation Comments Supernat BF (test code = Yellow *ABN*(06/13/22 Supernat BF) 10:00 AM) [facility]2022-07-25 15:00:00 Test Item Value Reference Range Interpretation Comments Nucleated Cells BF (test code = 273 Nucleated Cells BF) [facility]2022-07-25 15:00:00 Test Item Value Reference Range Interpretation Comments RBC BF (test code = RBC BF) 419 [facility]2022-07-25 15:00:00 Test Item Value Reference Range Interpretation Comments Neutrophils BF (test code = Neutrophils 10 BF) [facility]2022-07-25 15:00:00 Test Item Value Reference Range Interpretation Comments Lymph BF (test code = Lymph BF) 36 [facility]2022-07-25 15:00:00 Test Item Value Reference Range Interpretation Comments Macrophage BF (test code = Macrophage 48 BF) [facility]2022-07-25 15:00:00 Test Item Value Reference Range Interpretation Comments Meso BF (test code = Meso BF) 6 [facility]2022-07-25 15:00:00 Test Item Value Reference Range Interpretation Comments Comment BF (test Differential confirmed. code = Comment BF) mesothlial cells and mixed inflammation. performed by Dr. Rosendo Chapa [facility]2022-07-25 15:00:00 Test Item Value Reference Range Interpretation Comments Glucose BF (test code = Glucose BF) 154 [facility]2022-07-25 15:00:00 Test Item Value Reference Range Interpretation Comments Gluc BF Type (test Pleural *NA*(06/13/22 code = Gluc BF Type) 10:00 AM) [facility]2022-07-25 15:00:00 Test Item Value Reference Range Interpretation Comments LDH BF (test code = LDH BF) 74 [facility]2022-07-25 15:00:00 Test Item Value Reference Range Interpretation Comments LDH BF Type (test Pleural *NA*(06/13/22 code = LDH BF Type) 10:00 AM) [facility]2022-07-25 15:00:00 Test Item Value Reference Range Interpretation Comments pH BF Type (test code Pleural (06/13/22 10:00 = pH BF Type) AM) [facility]ville[facility] [id number] 15:00:00 Test Item Value Reference Range Interpretation Comments pH BF (test code = pH BF) 8.[address] [facility] [id number] 15:00:00 Test Item Value Reference Range Interpretation Comments Protein BF (test code = Protein BF) 1.0 [facility] [id number] 15:00:00 Test Item Value Reference Range Interpretation Comments Prot BF Type (test Pleural *NA*(06/13/22 code = Prot BF Type) 10:00 AM) [facility] [id number] 15:00:00 Test Item Value Reference Range Interpretation Comments Gram Stain Report Few WBC's No Organisms (test code = Gram Seen Stain Report) [facility]: Aspirate/Body Fluid/[id number] 15:00:00 Test Item Value Reference Range Interpretation Comments Culture: Aspirate/Body Fluid/Tissue No Growth (test code = Culture: Aspirate/Body Fluid/Tissue) [facility]2022-07-25 15:00:00 Test Item Value Reference Range Interpretation Comments Albumin BF (test code = Albumin BF) 0.6 [facility]2022-07-25 15:00:00 Test Item Value Reference Range Interpretation Comments Alb BF Type (test Pleural *NA*(06/13/22 code = Alb BF Type) 10:00 AM) [facility]2022-07-25 15:00:00 Test Item Value Reference Range Interpretation Comments CellCnt BF Type (test Thoracen (06/13/22 10:00 code = CellCnt BF AM) Type) [facility]2022-07-25 15:00:00 Test Item Value Reference Range Interpretation Comments Color BF (test code = Yellow (06/13/22 10:00 Color BF) AM) [facility]2022-07-25 15:00:00 Test Item Value Reference Range Interpretation Comments Clarity BF (test code = Clear (06/13/22 10:00 Clarity BF) AM) [facility]2022-07-25 15:00:00 Test Item Value Reference Range Interpretation Comments Supernat BF (test code = Yellow *ABN*(06/13/22 Supernat BF) 10:00 AM) [facility]2022-07-25 15:00:00 Test Item Value Reference Range Interpretation Comments Nucleated Cells BF (test code = 273 Nucleated Cells BF) [facility]2022-07-25 15:00:00 Test Item Value Reference Range Interpretation Comments RBC BF (test code = RBC BF) 419 [facility]2022-07-25 15:00:00 Test Item Value Reference Range Interpretation Comments Neutrophils BF (test code = Neutrophils 10 BF) [facility]2022-07-25 15:00:00 Test Item Value Reference Range Interpretation Comments Lymph BF (test code = Lymph BF) 36 [facility]2022-07-25 15:00:00 Test Item Value Reference Range Interpretation Comments Macrophage BF (test code = Macrophage 48 BF) [facility]2022-07-25 15:00:00 Test Item Value Reference Range Interpretation Comments Meso BF (test code = Meso BF) 6 [facility]2022-07-25 15:00:00 Test Item Value Reference Range Interpretation Comments Comment BF (test Differential confirmed. code = Comment BF) mesothlial cells and mixed inflammation. performed by Dr. Rosendo Chapa [facility]2022-07-25 15:00:00 Test Item Value Reference Range Interpretation Comments Glucose BF (test code = Glucose BF) 154 [facility]2022-07-25 15:00:00 Test Item Value Reference Range Interpretation Comments Gluc BF Type (test Pleural *NA*(06/13/22 code = Gluc BF Type) 10:00 AM) [facility]2022-07-25 15:00:00 Test Item Value Reference Range Interpretation Comments LDH BF (test code = LDH BF) 74 [facility]2022-07-25 15:00:00 Test Item Value Reference Range Interpretation Comments LDH BF Type (test Pleural *NA*(06/13/22 code = LDH BF Type) 10:00 AM) [facility]2022-07-25 15:00:00 Test Item Value Reference Range Interpretation Comments pH BF Type (test code Pleural (06/13/22 10:00 = pH BF Type) AM) [facility]2022-07-25 15:00:00 Test Item Value Reference Range Interpretation Comments pH BF (test code = pH BF) 8.[address] [facility]2022-07-25 15:00:00 Test Item Value Reference Range Interpretation Comments Protein BF (test code = Protein BF) 1.0 [facility] [id number] 15:00:00 Test Item Value Reference Range Interpretation Comments Prot BF Type (test Pleural *NA*(06/13/22 code = Prot BF Type) 10:00 AM) [facility] [id number] 15:00:00 Test Item Value Reference Range Interpretation Comments Gram Stain Report Few WBC's No Organisms (test code = Gram Seen Stain Report) [facility]: Aspirate/Body Fluid/[id number] 15:00:00 Test Item Value Reference Range Interpretation Comments Culture: Aspirate/Body Fluid/Tissue No Growth (test code = Culture: Aspirate/Body Fluid/Tissue) [facility] [facility]2022-[facility]25 15:00:00 Test Item Value Reference Range Interpretation Comments Albumin BF (test code = Albumin BF) 0.6 [facility]2022-07-25 15:00:00 Test Item Value Reference Range Interpretation Comments Alb BF Type (test Pleural *NA*(06/13/22 code = Alb BF Type) 10:00 AM) [facility]2022-07-25 15:00:00 Test Item Value Reference Range Interpretation Comments CellCnt BF Type (test Thoracen (06/13/22 10:00 code = CellCnt BF AM) Type) [facility]2022-07-25 15:00:00 Test Item Value Reference Range Interpretation Comments Color BF (test code = Yellow (06/13/22 10:00 Color BF) AM) [facility]2022-07-25 15:00:00 Test Item Value Reference Range Interpretation Comments Clarity BF (test code = Clear (06/13/22 10:00 Clarity BF) AM) [facility]2022-07-25 15:00:00 Test Item Value Reference Range Interpretation Comments Supernat BF (test code = Yellow *ABN*(06/13/22 Supernat BF) 10:00 AM) [facility]2022-07-25 15:00:00 Test Item Value Reference Range Interpretation Comments Nucleated Cells BF (test code = 273 Nucleated Cells BF) [facility]2022-07-25 15:00:00 Test Item Value Reference Range Interpretation Comments RBC BF (test code = RBC BF) 419 [facility]2022-07-25 15:00:00 Test Item Value Reference Range Interpretation Comments Neutrophils BF (test code = Neutrophils 10 [address]) [facility]2022-07-25 15:00:00 Test Item Value Reference Range Interpretation Comments Lymph BF (test code = Lymph BF) 36 [facility]2022-07-25 15:00:00 Test Item Value Reference Range Interpretation Comments Macrophage BF (test code = Macrophage 48 BF) [facility]2022-07-25 15:00:00 Test Item Value Reference Range Interpretation Comments Meso BF (test code = Meso BF) 6 [facility]2022-07-25 15:00:00 Test Item Value Reference Range Interpretation Comments Comment BF (test Differential confirmed. code = Comment BF) mesothlial cells and mixed inflammation. performed by Dr. Rosendo Chapa [facility]2022-07-25 15:00:00 Test Item Value Reference Range Interpretation Comments Glucose BF (test code = Glucose BF) 154 [facility]2022-07-25 15:00:00 Test Item Value Reference Range Interpretation Comments Gluc BF Type (test Pleural *NA*(06/13/22 code = Gluc BF Type) 10:00 AM) [facility]2022-07-25 15:00:00 Test Item Value Reference Range Interpretation Comments LDH BF (test code = LDH BF) 74 [facility]2022-07-25 15:00:00 Test Item Value Reference Range Interpretation Comments LDH BF Type (test Pleural *NA*(06/13/22 code = LDH BF Type) 10:00 AM) [facility]2022-07-25 15:00:00 Test Item Value Reference Range Interpretation Comments pH BF Type (test code Pleural (06/13/22 10:00 = pH BF Type) AM) [facility]2022-07-25 15:00:00 Test Item Value Reference Range Interpretation Comments pH BF (test code = pH BF) 8.[address] [facility]2022-07-25 15:00:00 Test Item Value Reference Range Interpretation Comments Protein BF (test code = Protein BF) 1.0 [facility]2022-07-25 15:00:00 Test Item Value Reference Range Interpretation Comments Prot BF Type (test Pleural *NA*(06/13/22 code = Prot BF Type) 10:00 AM) [facility] [id number] 15:00:00 Test Item Value Reference Range Interpretation Comments Gram Stain Report Few WBC's No Organisms (test code = Gram Seen Stain Report) [facility] Aspirate/Body Fluid/[id number] 15:00:00 Test Item Value Reference Range Interpretation Comments Culture: Aspirate/Body Fluid/Tissue No Growth (test code = Culture: Aspirate/Body Fluid/Tissue) [facility] [id number] 15:00:00 Test Item Value Reference Range Interpretation Comments Albumin BF (test code = Albumin BF) 0.6 [facility]2022-07-25 15:00:00 Test Item Value Reference Range Interpretation Comments Alb BF Type (test Pleural *NA*(06/13/22 code = Alb BF Type) 10:00 AM) [facility]2022-07-25 15:00:00 Test Item Value Reference Range Interpretation Comments CellCnt BF Type (test Thoracen (06/13/22 10:00 code = CellCnt BF AM) Type) [facility]2022-07-25 15:00:00 Test Item Value Reference Range Interpretation Comments Color BF (test code = Yellow (06/13/22 10:00 Color BF) AM) [facility]2022-07-25 15:00:00 Test Item Value Reference Range Interpretation Comments Clarity BF (test code = Clear (06/13/22 10:00 Clarity BF) AM) [facility]2022-07-25 15:00:00 Test Item Value Reference Range Interpretation Comments Supernat BF (test code = Yellow *ABN*(06/13/22 Supernat BF) 10:00 AM) [facility]2022-07-25 15:00:00 Test Item Value Reference Range Interpretation Comments Nucleated Cells BF (test code = 273 Nucleated Cells BF) [facility]2022-07-25 15:00:00 Test Item Value Reference Range Interpretation Comments RBC BF (test code = RBC BF) 419 [facility]2022-07-25 15:00:00 Test Item Value Reference Range Interpretation Comments Neutrophils BF (test code = Neutrophils 10 [address]) [facility]2022-07-25 15:00:00 Test Item Value Reference Range Interpretation Comments Lymph BF (test code = Lymph BF) 36 [facility] [id number] 15:00:00 Test Item Value Reference Range Interpretation Comments Macrophage BF (test code = Macrophage 48 [address]) [facility] [id number] 15:00:00 Test Item Value Reference Range Interpretation Comments Meso BF (test code = Meso BF) 6 [facility]2022-07-25 15:00:00 Test Item Value Reference Range Interpretation Comments Comment BF (test Differential confirmed. code = Comment BF) mesothlial cells and mixed inflammation. performed by Dr. Rosendo Chapa [facility]2022-07-25 15:00:00 Test Item Value Reference Range Interpretation Comments Glucose BF (test code = Glucose BF) 154 [facility]2022-07-25 15:00:00 Test Item Value Reference Range Interpretation Comments Gluc BF Type (test Pleural *NA*(06/13/22 code = Gluc BF Type) 10:00 AM) [facility]2022-07-25 15:00:00 Test Item Value Reference Range Interpretation Comments LDH BF (test code = LDH BF) 74 [facility]2022-07-25 15:00:00 Test Item Value Reference Range Interpretation Comments LDH BF Type (test Pleural *NA*(06/13/22 code = LDH BF Type) 10:00 AM) [facility] [id number] 15:00:00 Test Item Value Reference Range Interpretation Comments pH BF Type (test code Pleural (06/13/22 10:00 = pH BF Type) AM) [facility]2022-07-25 15:00:00 Test Item Value Reference Range Interpretation Comments pH BF (test code = pH BF) 8.[address] [facility] [id number] 15:00:00 Test Item Value Reference Range Interpretation Comments Protein BF (test code = Protein BF) 1.0 [facility] [id number] 15:00:00 Test Item Value Reference Range Interpretation Comments Prot BF Type (test Pleural *NA*(06/13/22 code = Prot BF Type) 10:00 AM) [facility] [id number] 15:00:00 Test Item Value Reference Range Interpretation Comments Gram Stain Report Few WBC's No Organisms (test code = Gram Seen Stain Report) [facility] Aspirate/Body Fluid/[id number] 15:00:00 Test Item Value Reference Range Interpretation Comments Culture: Aspirate/Body Fluid/Tissue No Growth (test code = Culture: Aspirate/Body Fluid/Tissue) [facility]2022-07-25 15:00:00 Test Item Value Reference Range Interpretation Comments Albumin BF (test code = Albumin BF) 0.6 [facility]2022-07-25 15:00:00 Test Item Value Reference Range Interpretation Comments Alb BF Type (test Pleural *NA*(06/13/22 code = Alb BF Type) 10:00 AM) [facility]2022-07-25 15:00:00 Test Item Value Reference Range Interpretation Comments CellCnt BF Type (test Thoracen (06/13/22 10:00 code = CellCnt BF AM) Type) [facility]2022-07-25 15:00:00 Test Item Value Reference Range Interpretation Comments Color BF (test code = Yellow (06/13/22 10:00 Color BF) AM) [facility]2022-07-25 15:00:00 Test Item Value Reference Range Interpretation Comments Clarity BF (test code = Clear (06/13/22 10:00 Clarity BF) AM) [facility]2022-07-25 15:00:00 Test Item Value Reference Range Interpretation Comments Supernat BF (test code = Yellow *ABN*(06/13/22 Supernat BF) 10:00 AM) [facility]2022-07-25 15:00:00 Test Item Value Reference Range Interpretation Comments Nucleated Cells BF (test code = 273 Nucleated Cells BF) [facility]2022-07-25 15:00:00 Test Item Value Reference Range Interpretation Comments RBC BF (test code = RBC BF) 419 [facility]2022-07-25 15:00:00 Test Item Value Reference Range Interpretation Comments Neutrophils BF (test code = Neutrophils 10 BF) [facility]2022-07-25 15:00:00 Test Item Value Reference Range Interpretation Comments Lymph BF (test code = Lymph BF) 36 [facility]2022-07-25 15:00:00 Test Item Value Reference Range Interpretation Comments Macrophage BF (test code = Macrophage 48 BF) [facility] [id number] 15:00:00 Test Item Value Reference Range Interpretation Comments Meso BF (test code = Meso BF) 6 [facility]2022-07-25 15:00:00 Test Item Value Reference Range Interpretation Comments Comment BF (test Differential confirmed. code = Comment BF) mesothlial cells and mixed inflammation. performed by Dr. Rosendo Chapa [facility]2022-07-25 15:00:00 Test Item Value Reference Range Interpretation Comments Glucose BF (test code = Glucose BF) 154 [facility] [id number] 15:00:00 Test Item Value Reference Range Interpretation Comments Gluc BF Type (test Pleural *NA*(06/13/22 code = Gluc BF Type) 10:00 AM) [facility]2022-07-25 15:00:00 Test Item Value Reference Range Interpretation Comments LDH BF (test code = LDH BF) 74 [facility]2022-07-25 15:00:00 Test Item Value Reference Range Interpretation Comments LDH BF Type (test Pleural *NA*(06/13/22 code = LDH BF Type) 10:00 AM) [facility] [id number] 15:00:00 Test Item Value Reference Range Interpretation Comments pH BF Type (test code Pleural (06/13/22 10:00 = pH BF Type) AM) [facility]2022-07-25 15:00:00 Test Item Value Reference Range Interpretation Comments pH BF (test code = pH BF) 8.[address] [facility] [id number] 15:00:00 Test Item Value Reference Range Interpretation Comments Protein BF (test code = Protein BF) 1.0 [facility] [id number] 15:00:00 Test Item Value Reference Range Interpretation Comments Prot BF Type (test Pleural *NA*(06/13/22 code = Prot BF Type) 10:00 AM) [facility] [id number] 15:00:00 Test Item Value Reference Range Interpretation Comments Gram Stain Report Few WBC's No Organisms (test code = Gram Seen Stain Report) [facility] Aspirate/Body Fluid/[id number] 15:00:00 Test Item Value Reference Range Interpretation Comments Culture: Aspirate/Body Fluid/Tissue No Growth (test code = Culture: Aspirate/Body Fluid/Tissue) [facility]2022-07-25 15:00:00 Test Item Value Reference Range Interpretation Comments Albumin BF (test code = Albumin BF) 0.6 [facility]2022-07-25 15:00:00 Test Item Value Reference Range Interpretation Comments Alb BF Type (test Pleural *NA*(06/13/22 code = Alb BF Type) 10:00 AM) [facility]2022-07-25 15:00:00 Test Item Value Reference Range Interpretation Comments CellCnt BF Type (test Thoracen (06/13/22 10:00 code = CellCnt BF AM) Type) [facility]2022-07-25 15:00:00 Test Item Value Reference Range Interpretation Comments Color BF (test code = Yellow (06/13/22 10:00 Color BF) AM) [facility]2022-07-25 15:00:00 Test Item Value Reference Range Interpretation Comments Clarity BF (test code = Clear (06/13/22 10:00 Clarity BF) AM) [facility]2022-07-25 15:00:00 Test Item Value Reference Range Interpretation Comments Supernat BF (test code = Yellow *ABN*(06/13/22 Supernat BF) 10:00 AM) [facility]2022-07-25 15:00:00 Test Item Value Reference Range Interpretation Comments Nucleated Cells BF (test code = 273 Nucleated Cells BF) [facility]2022-07-25 15:00:00 Test Item Value Reference Range Interpretation Comments RBC BF (test code = RBC BF) 419 [facility]2022-07-25 15:00:00 Test Item Value Reference Range Interpretation Comments Neutrophils BF (test code = Neutrophils 10 BF) [facility]2022-07-25 15:00:00 Test Item Value Reference Range Interpretation Comments Lymph BF (test code = Lymph BF) 36 [facility]2022-07-25 15:00:00 Test Item Value Reference Range Interpretation Comments Macrophage BF (test code = Macrophage 48 BF) [facility]2022-07-25 15:00:00 Test Item Value Reference Range Interpretation Comments Meso BF (test code = Meso BF) 6 [facility]2022-07-25 15:00:00 Test Item Value Reference Range Interpretation Comments Comment BF (test Differential confirmed. code = Comment BF) mesothlial cells and mixed inflammation. performed by Dr. Rosendo Chapa [facility] [id number] 15:00:00 Test Item Value Reference Range Interpretation Comments Glucose BF (test code = Glucose BF) 154 [facility] [id number] 15:00:00 Test Item Value Reference Range Interpretation Comments Gluc BF Type (test Pleural *NA*(06/13/22 code = Gluc BF Type) 10:00 AM) [facility] [id number] 15:00:00 Test Item Value Reference Range Interpretation Comments LDH BF (test code = LDH BF) 74 [facility]2022-07-25 15:00:00 Test Item Value Reference Range Interpretation Comments LDH BF Type (test Pleural *NA*(06/13/22 code = LDH BF Type) 10:00 AM) [facility] [id number] 15:00:00 Test Item Value Reference Range Interpretation Comments pH BF Type (test code Pleural (06/13/22 10:00 = pH BF Type) AM) [facility] [id number] 15:00:00 Test Item Value Reference Range Interpretation Comments pH BF (test code = pH BF) 8.[address] [facility] [id number] 15:00:00 Test Item Value Reference Range Interpretation Comments Protein BF (test code = Protein BF) 1.0 [facility] [id number] 15:00:00 Test Item Value Reference Range Interpretation Comments Prot BF Type (test Pleural *NA*(06/13/22 code = Prot BF Type) 10:00 AM) [facility] [id number] 15:00:00 Test Item Value Reference Range Interpretation Comments Gram Stain Report Few WBC's No Organisms (test code = Gram Seen Stain Report) [facility]: Aspirate/Body Fluid/[id number] 15:00:00 Test Item Value Reference Range Interpretation Comments Culture: Aspirate/Body Fluid/Tissue No Growth (test code = Culture: Aspirate/Body Fluid/Tissue) [facility] [id number] 15:00:00 Test Item Value Reference Range Interpretation Comments Albumin BF (test code = Albumin BF) 0.6 [facility]2022-07-25 15:00:00 Test Item Value Reference Range Interpretation Comments Alb BF Type (test Pleural *NA*(06/13/22 code = Alb BF Type) 10:00 AM) [facility]2022-07-25 15:00:00 Test Item Value Reference Range Interpretation Comments CellCnt BF Type (test Thoracen (06/13/22 10:00 code = CellCnt BF AM) Type) [facility]2022-07-25 15:00:00 Test Item Value Reference Range Interpretation Comments Color BF (test code = Yellow (06/13/22 10:00 Color BF) AM) [facility]2022-07-25 15:00:00 Test Item Value Reference Range Interpretation Comments Clarity BF (test code = Clear (06/13/22 10:00 Clarity BF) AM) [facility]2022-07-25 15:00:00 Test Item Value Reference Range Interpretation Comments Supernat BF (test code = Yellow *ABN*(06/13/22 Supernat BF) 10:00 AM) [facility]2022-07-25 15:00:00 Test Item Value Reference Range Interpretation Comments Nucleated Cells BF (test code = 273 Nucleated Cells BF) [facility]2022-07-25 15:00:00 Test Item Value Reference Range Interpretation Comments RBC BF (test code = RBC BF) 419 [facility]2022-07-25 15:00:00 Test Item Value Reference Range Interpretation Comments Neutrophils BF (test code = Neutrophils 10 BF) [facility]2022-07-25 15:00:00 Test Item Value Reference Range Interpretation Comments Lymph BF (test code = Lymph BF) 36 [facility]2022-07-25 15:00:00 Test Item Value Reference Range Interpretation Comments Macrophage BF (test code = Macrophage 48 BF) [facility]2022-07-25 15:00:00 Test Item Value Reference Range Interpretation Comments Meso BF (test code = Meso BF) 6 [facility]2022-07-25 15:00:00 Test Item Value Reference Range Interpretation Comments Comment BF (test Differential confirmed. code = Comment BF) mesothlial cells and mixed inflammation. performed by Dr. Rosendo Chapa [facility]2022-07-25 15:00:00 Test Item Value Reference Range Interpretation Comments Glucose BF (test code = Glucose BF) 154 [facility] [id number] 15:00:00 Test Item Value Reference Range Interpretation Comments Gluc BF Type (test Pleural *NA*(06/13/22 code = Gluc BF Type) 10:00 AM) [facility] [id number] 15:00:00 Test Item Value Reference Range Interpretation Comments LDH BF (test code = LDH BF) 74 [facility] [id number] 15:00:00 Test Item Value Reference Range Interpretation Comments LDH BF Type (test Pleural *NA*(06/13/22 code = LDH BF Type) 10:00 AM) [facility] [id number] 15:00:00 Test Item Value Reference Range Interpretation Comments pH BF Type (test code Pleural (06/13/22 10:00 = pH BF Type) AM) [facility] [id number] 15:00:00 Test Item Value Reference Range Interpretation Comments pH BF (test code = pH BF) 8.00 1 [facility] [id number] 15:00:00 Test Item Value Reference Range Interpretation Comments Protein BF (test code = Protein BF) 1.0 [facility] [id number] 15:00:00 Test Item Value Reference Range Interpretation Comments Prot BF Type (test Pleural *NA*(06/13/22 code = Prot BF Type) 10:00 AM) [facility] [id number] 15:00:00 Test Item Value Reference Range Interpretation Comments Gram Stain Report Few WBC's No Organisms (test code = Gram Seen Stain Report) [facility] Aspirate/Body Fluid/[id number] 15:00:00 Test Item Value Reference Range Interpretation Comments Culture: Aspirate/Body Fluid/Tissue No Growth (test code = Culture: Aspirate/Body Fluid/Tissue) [facility] [id number] 15:00:00 Test Item Value Reference Range Interpretation Comments Albumin BF (test code = Albumin BF) 0.6 [facility] [id number] 15:00:00 Test Item Value Reference Range Interpretation Comments Alb BF Type (test Pleural *NA*(06/13/22 code = Alb BF Type) 10:00 AM) [facility]2022-07-25 15:00:00 Test Item Value Reference Range Interpretation Comments CellCnt BF Type (test Thoracen (06/13/22 10:00 code = CellCnt BF AM) Type) [facility]2022-07-25 15:00:00 Test Item Value Reference Range Interpretation Comments Color BF (test code = Yellow (06/13/22 10:00 Color BF) AM) [facility]2022-07-25 15:00:00 Test Item Value Reference Range Interpretation Comments Clarity BF (test code = Clear (06/13/22 10:00 Clarity BF) AM) [facility]2022-07-25 15:00:00 Test Item Value Reference Range Interpretation Comments Supernat BF (test code = Yellow *ABN*(06/13/22 Supernat BF) 10:00 AM) [facility]2022-07-25 15:00:00 Test Item Value Reference Range Interpretation Comments Nucleated Cells BF (test code = 273 Nucleated Cells BF) [facility]2022-07-25 15:00:00 Test Item Value Reference Range Interpretation Comments RBC BF (test code = RBC BF) 419 [facility]2022-07-25 15:00:00 Test Item Value Reference Range Interpretation Comments Neutrophils BF (test code = Neutrophils 10 BF) [facility]2022-07-25 15:00:00 Test Item Value Reference Range Interpretation Comments Lymph BF (test code = Lymph BF) 36 [facility]2022-07-25 15:00:00 Test Item Value Reference Range Interpretation Comments Macrophage BF (test code = Macrophage 48 BF) [facility]2022-07-25 15:00:00 Test Item Value Reference Range Interpretation Comments Meso BF (test code = Meso BF) 6 [facility]2022-07-25 15:00:00 Test Item Value Reference Range Interpretation Comments Comment BF (test Differential confirmed. code = Comment BF) mesothlial cells and mixed inflammation. performed by Dr. Rosendo Chapa [facility]2022-07-25 15:00:00 Test Item Value Reference Range Interpretation Comments Glucose BF (test code = Glucose BF) 154 [facility]2022-07-25 15:00:00 Test Item Value Reference Range Interpretation Comments Gluc BF Type (test Pleural *NA*(06/13/22 code = Gluc BF Type) 10:00 AM) [facility] [id number] 15:00:00 Test Item Value Reference Range Interpretation Comments LDH BF (test code = LDH BF) [facility] [id number] 15:00:00 Test Item Value Reference Range Interpretation Comments LDH BF Type (test Pleural *NA*(06/13/22 code = LDH BF Type) 10:00 AM) [facility] [id number] 15:00:00 Test Item Value Reference Range Interpretation Comments pH BF Type (test code Pleural (06/13/22 10:00 = pH BF Type) AM) [facility] [id number] 15:00:00 Test Item Value Reference Range Interpretation Comments pH BF (test code = pH BF) 8.00 1 [facility] [id number] 15:00:00 Test Item Value Reference Range Interpretation Comments Protein BF (test code = Protein BF) 1.0 [facility] [id number] 15:00:00 Test Item Value Reference Range Interpretation Comments Prot BF Type (test Pleural *NA*(06/13/22 code = Prot BF Type) 10:00 AM) [facility] [id number] 15:00:00 Test Item Value Reference Range Interpretation Comments Gram Stain Report Few WBC's No Organisms (test code = Gram Seen Stain Report) [facility] Aspirate/Body Fluid/[id number] 15:00:00 Test Item Value Reference Range Interpretation Comments Culture: Aspirate/Body Fluid/Tissue No Growth (test code = Culture: Aspirate/Body Fluid/Tissue) [facility] [id number] 15:00:00 Test Item Value Reference Range Interpretation Comments Albumin BF (test code = Albumin BF) 0.6 [facility] [id number] 15:00:00 Test Item Value Reference Range Interpretation Comments Alb BF Type (test Pleural *NA*(06/13/22 code = Alb BF Type) 10:00 AM) [facility] [id number] 15:00:00 Test Item Value Reference Range Interpretation Comments CellCnt BF Type (test Thoracen (06/13/22 10:00 code = CellCnt BF AM) Type) [facility]2022-07-25 15:00:00 Test Item Value Reference Range Interpretation Comments Color BF (test code = Yellow (06/13/22 10:00 Color BF) AM) [facility]2022-07-25 15:00:00 Test Item Value Reference Range Interpretation Comments Clarity BF (test code = Clear (06/13/22 10:00 Clarity BF) AM) [facility]2022-07-25 15:00:00 Test Item Value Reference Range Interpretation Comments Supernat BF (test code = Yellow *ABN*(06/13/22 Supernat BF) 10:00 AM) [facility]2022-07-25 15:00:00 Test Item Value Reference Range Interpretation Comments Nucleated Cells BF (test code = 273 Nucleated Cells BF) [facility]2022-07-25 15:00:00 Test Item Value Reference Range Interpretation Comments RBC BF (test code = RBC BF) 419 [facility]2022-07-25 15:00:00 Test Item Value Reference Range Interpretation Comments Neutrophils BF (test code = Neutrophils 10 [address]) [facility]2022-07-25 15:00:00 Test Item Value Reference Range Interpretation Comments Lymph BF (test code = Lymph BF) 36 [facility]2022-07-25 15:00:00 Test Item Value Reference Range Interpretation Comments Macrophage BF (test code = Macrophage 48 [address]) [facility]2022-07-25 15:00:00 Test Item Value Reference Range Interpretation Comments Meso BF (test code = Meso BF) 6 [facility]2022-07-25 15:00:00 Test Item Value Reference Range Interpretation Comments Comment BF (test Differential confirmed. code = Comment BF) mesothlial cells and mixed inflammation. performed by Dr. Rosendo Chapa [facility]2022-07-25 15:00:00 Test Item Value Reference Range Interpretation Comments Glucose BF (test code = Glucose BF) 154 [facility]2022-07-25 15:00:00 Test Item Value Reference Range Interpretation Comments Gluc BF Type (test Pleural *NA*(06/13/22 code = Gluc BF Type) 10:00 AM) [facility]2022-07-25 15:00:00 Test Item Value Reference Range Interpretation Comments LDH BF (test code = LDH BF) 74 [facility] [id number] 15:00:00 Test Item Value Reference Range Interpretation Comments LDH BF Type (test Pleural *NA*(06/13/22 code = LDH BF Type) 10:00 AM) [facility] [id number] 15:00:00 Test Item Value Reference Range Interpretation Comments pH BF Type (test code Pleural (06/13/22 10:00 = pH BF Type) AM) [facility] [id number] 15:00:00 Test Item Value Reference Range Interpretation Comments pH BF (test code = pH BF) 8.00 1 [facility] [id number] 15:00:00 Test Item Value Reference Range Interpretation Comments Protein BF (test code = Protein BF) 1.0 [facility] [id number] 15:00:00 Test Item Value Reference Range Interpretation Comments Prot BF Type (test Pleural *NA*(06/13/22 code = Prot BF Type) 10:00 AM) [facility]ville[facility] [id number] 15:00:00 Test Item Value Reference Range Interpretation Comments Gram Stain Report Few WBC's No Organisms (test code = Gram Seen Stain Report) [facility]: Aspirate/Body Fluid/[id number] 15:00:00 Test Item Value Reference Range Interpretation Comments Culture: Aspirate/Body Fluid/Tissue No Growth (test code = Culture: Aspirate/Body Fluid/Tissue) [facility]2022-07-25 15:00:00 Test Item Value Reference Range Interpretation Comments Albumin BF (test code = Albumin BF) 0.6 [facility]2022-07-25 15:00:00 Test Item Value Reference Range Interpretation Comments Alb BF Type (test Pleural *NA*(06/13/22 code = Alb BF Type) 10:00 AM) [facility] [id number] 15:00:00 Test Item Value Reference Range Interpretation Comments CellCnt BF Type (test Thoracen (06/13/22 10:00 code = CellCnt BF AM) Type) [facility]2022-07-25 15:00:00 Test Item Value Reference Range Interpretation Comments Color BF (test code = Yellow (06/13/22 10:00 Color BF) AM) [facility]2022-07-25 15:00:00 Test Item Value Reference Range Interpretation Comments Clarity BF (test code = Clear (06/13/22 10:00 Clarity BF) AM) [facility]2022-07-25 15:00:00 Test Item Value Reference Range Interpretation Comments Supernat BF (test code = Yellow *ABN*(06/13/22 Supernat BF) 10:00 AM) [facility]2022-07-25 15:00:00 Test Item Value Reference Range Interpretation Comments Nucleated Cells BF (test code = 273 Nucleated Cells BF) [facility]2022-07-25 15:00:00 Test Item Value Reference Range Interpretation Comments RBC BF (test code = RBC BF) 419 [facility]2022-07-25 15:00:00 Test Item Value Reference Range Interpretation Comments Neutrophils BF (test code = Neutrophils [address]) [facility]2022-07-25 15:00:00 Test Item Value Reference Range Interpretation Comments Lymph BF (test code = Lymph BF) 36 [facility]2022-07-25 15:00:00 Test Item Value Reference Range Interpretation Comments Macrophage BF (test code = Macrophage [address]) [facility]2022-07-25 15:00:00 Test Item Value Reference Range Interpretation Comments Meso BF (test code = Meso BF) 6 [facility]2022-07-25 15:00:00 Test Item Value Reference Range Interpretation Comments Comment BF (test Differential confirmed. code = Comment BF) mesothlial cells and mixed inflammation. performed by Dr. Rosendo Chapa [facility]2022-07-25 15:00:00 Test Item Value Reference Range Interpretation Comments Glucose BF (test code = Glucose BF) 154 [facility]2022-07-25 15:00:00 Test Item Value Reference Range Interpretation Comments Gluc BF Type (test Pleural *NA*(06/13/22 code = Gluc BF Type) 10:00 AM) [facility]2022-07-25 15:00:00 Test Item Value Reference Range Interpretation Comments LDH BF (test code = LDH BF) 74 [facility]2022-07-25 15:00:00 Test Item Value Reference Range Interpretation Comments LDH BF Type (test Pleural *NA*(06/13/22 code = LDH BF Type) 10:00 AM) [facility]2022-07-25 15:00:00 Test Item Value Reference Range Interpretation Comments pH BF Type (test code Pleural (06/13/22 10:00 = pH BF Type) AM) [facility]2022-07-25 15:00:00 Test Item Value Reference Range Interpretation Comments pH BF (test code = pH BF) 8.[address] [facility] [id number] 15:00:00 Test Item Value Reference Range Interpretation Comments Protein BF (test code = Protein BF) 1.0 [facility] [id number] 15:00:00 Test Item Value Reference Range Interpretation Comments Prot BF Type (test Pleural *NA*(06/13/22 code = Prot BF Type) 10:00 AM) [facility] [id number] 15:00:00 Test Item Value Reference Range Interpretation Comments Gram Stain Report Few WBC's No Organisms (test code = Gram Seen Stain Report) [facility] Aspirate/Body Fluid/[id number] 15:00:00 Test Item Value Reference Range Interpretation Comments Culture: Aspirate/Body Fluid/Tissue No Growth (test code = Culture: Aspirate/Body Fluid/Tissue) [facility]2022-07-25 15:00:00 Test Item Value Reference Range Interpretation Comments Albumin BF (test code = Albumin BF) 0.6 [facility]2022-07-25 15:00:00 Test Item Value Reference Range Interpretation Comments Alb BF Type (test Pleural *NA*(06/13/22 code = Alb BF Type) 10:00 AM) [facility]2022-07-25 15:00:00 Test Item Value Reference Range Interpretation Comments CellCnt BF Type (test Thoracen (06/13/22 10:00 code = CellCnt BF AM) Type) [facility]2022-07-25 15:00:00 Test Item Value Reference Range Interpretation Comments Color BF (test code = Yellow (06/13/22 10:00 Color BF) AM) [facility]2022-07-25 15:00:00 Test Item Value Reference Range Interpretation Comments Clarity BF (test code = Clear (06/13/22 10:00 Clarity BF) AM) [facility]2022-07-25 15:00:00 Test Item Value Reference Range Interpretation Comments Supernat BF (test code = Yellow *ABN*(06/13/22 Supernat BF) 10:00 AM) [facility]2022-07-25 15:00:00 Test Item Value Reference Range Interpretation Comments Nucleated Cells BF (test code = 273 Nucleated Cells BF) [facility]2022-07-25 15:00:00 Test Item Value Reference Range Interpretation Comments RBC BF (test code = RBC BF) 419 [facility]2022-07-25 15:00:00 Test Item Value Reference Range Interpretation Comments Neutrophils BF (test code = Neutrophils [address]) [facility]2022-07-25 15:00:00 Test Item Value Reference Range Interpretation Comments Lymph BF (test code = Lymph BF) 36 [facility]2022-07-25 15:00:00 Test Item Value Reference Range Interpretation Comments Macrophage BF (test code = Macrophage [address]) [facility]2022-07-25 15:00:00 Test Item Value Reference Range Interpretation Comments Meso BF (test code = Meso BF) 6 [facility]2022-07-25 15:00:00 Test Item Value Reference Range Interpretation Comments Comment BF (test Differential confirmed. code = Comment BF) mesothlial cells and mixed inflammation. performed by Dr. Rosendo Chapa [facility]2022-07-25 15:00:00 Test Item Value Reference Range Interpretation Comments Glucose BF (test code = Glucose BF) 154 [facility]2022-07-25 15:00:00 Test Item Value Reference Range Interpretation Comments Gluc BF Type (test Pleural *NA*(06/13/22 code = Gluc BF Type) 10:00 AM) [facility]2022-07-25 15:00:00 Test Item Value Reference Range Interpretation Comments LDH BF (test code = LDH BF) 74 [facility]2022-07-25 15:00:00 Test Item Value Reference Range Interpretation Comments LDH BF Type (test Pleural *NA*(06/13/22 code = LDH BF Type) 10:00 AM) [facility]2022-07-25 15:00:00 Test Item Value Reference Range Interpretation Comments pH BF Type (test code Pleural (06/13/22 10:00 = pH BF Type) AM) [facility]2022-07-25 15:00:00 Test Item Value Reference Range Interpretation Comments pH BF (test code = pH BF) 8.[address] [facility] [id number] 15:00:00 Test Item Value Reference Range Interpretation Comments Protein BF (test code = Protein BF) 1.0 [facility] [id number] 15:00:00 Test Item Value Reference Range Interpretation Comments Prot BF Type (test Pleural *NA*(06/13/22 code = Prot BF Type) 10:00 AM) [facility] [id number] 15:00:00 Test Item Value Reference Range Interpretation Comments Gram Stain Report Few WBC's No Organisms (test code = Gram Seen Stain Report) [facility]: Aspirate/Body Fluid/[id number] 15:00:00 Test Item Value Reference Range Interpretation Comments Culture: Aspirate/Body Fluid/Tissue No Growth (test code = Culture: Aspirate/Body Fluid/Tissue) [facility]2022-07-25 15:00:00 Test Item Value Reference Range Interpretation Comments Albumin BF (test code = Albumin BF) 0.6 [facility]2022-07-25 15:00:00 Test Item Value Reference Range Interpretation Comments Alb BF Type (test Pleural *NA*(06/13/22 code = Alb BF Type) 10:00 AM) [facility]2022-07-25 15:00:00 Test Item Value Reference Range Interpretation Comments CellCnt BF Type (test Thoracen (06/13/22 10:00 code = CellCnt BF AM) Type) [facility]2022-07-25 15:00:00 Test Item Value Reference Range Interpretation Comments Color BF (test code = Yellow (06/13/22 10:00 Color BF) AM) [facility]2022-07-25 15:00:00 Test Item Value Reference Range Interpretation Comments Clarity BF (test code = Clear (06/13/22 10:00 Clarity BF) AM) [facility]2022-07-25 15:00:00 Test Item Value Reference Range Interpretation Comments Supernat BF (test code = Yellow *ABN*(06/13/22 Supernat BF) 10:00 AM) [facility]2022-07-25 15:00:00 Test Item Value Reference Range Interpretation Comments Nucleated Cells BF (test code = 273 Nucleated Cells BF) [facility]2022-07-25 15:00:00 Test Item Value Reference Range Interpretation Comments RBC BF (test code = RBC BF) 419 [facility]2022-07-25 15:00:00 Test Item Value Reference Range Interpretation Comments Neutrophils BF (test code = Neutrophils 10 [address]) [facility]2022-07-25 15:00:00 Test Item Value Reference Range Interpretation Comments Lymph BF (test code = Lymph BF) 36 [facility]2022-07-25 15:00:00 Test Item Value Reference Range Interpretation Comments Macrophage BF (test code = Macrophage 48 [address]) [facility]2022-07-25 15:00:00 Test Item Value Reference Range Interpretation Comments Meso BF (test code = Meso BF) 6 [facility]2022-07-25 15:00:00 Test Item Value Reference Range Interpretation Comments Comment BF (test Differential confirmed. code = Comment BF) mesothlial cells and mixed inflammation. performed by Dr. Rosendo Chapa [facility]2022-07-25 15:00:00 Test Item Value Reference Range Interpretation Comments Glucose BF (test code = Glucose BF) 154 [facility]2022-07-25 15:00:00 Test Item Value Reference Range Interpretation Comments Gluc BF Type (test Pleural *NA*(06/13/22 code = Gluc BF Type) 10:00 AM) [facility]2022-07-25 15:00:00 Test Item Value Reference Range Interpretation Comments LDH BF (test code = LDH BF) 74 [facility]2022-07-25 15:00:00 Test Item Value Reference Range Interpretation Comments LDH BF Type (test Pleural *NA*(06/13/22 code = LDH BF Type) 10:00 AM) [facility]2022-07-25 15:00:00 Test Item Value Reference Range Interpretation Comments pH BF Type (test code Pleural (06/13/22 10:00 = pH BF Type) AM) [facility]2022-07-25 15:00:00 Test Item Value Reference Range Interpretation Comments pH BF (test code = pH BF) 8.[address] [facility]2022-07-25 15:00:00 Test Item Value Reference Range Interpretation Comments Protein BF (test code = Protein BF) 1.0 [facility] [id number] 15:00:00 Test Item Value Reference Range Interpretation Comments Prot BF Type (test Pleural *NA*(06/13/22 code = Prot BF Type) 10:00 AM) [facility] [id number] 15:00:00 Test Item Value Reference Range Interpretation Comments Gram Stain Report Few WBC's No Organisms (test code = Gram Seen Stain Report) [facility]villeCulture: Aspirate/Body Fluid/[id number] 15:00:00 Test Item Value Reference Range Interpretation Comments Culture: Aspirate/Body Fluid/Tissue No Growth (test code = Culture: Aspirate/Body Fluid/Tissue) [facility]2022-07-25 15:00:00 Test Item Value Reference Range Interpretation Comments Albumin BF (test code = Albumin BF) 0.6 [facility] [id number] 15:00:00 Test Item Value Reference Range Interpretation Comments Alb BF Type (test Pleural *NA*(06/13/22 code = Alb BF Type) 10:00 AM) [facility]2022-07-25 15:00:00 Test Item Value Reference Range Interpretation Comments CellCnt BF Type (test Thoracen (06/13/22 10:00 code = CellCnt BF AM) Type) [facility]2022-07-25 15:00:00 Test Item Value Reference Range Interpretation Comments Color BF (test code = Yellow (06/13/22 10:00 Color BF) AM) [facility]2022-07-25 15:00:00 Test Item Value Reference Range Interpretation Comments Clarity BF (test code = Clear (06/13/22 10:00 Clarity BF) AM) [facility]2022-07-25 15:00:00 Test Item Value Reference Range Interpretation Comments Supernat BF (test code = Yellow *ABN*(06/13/22 Supernat BF) 10:00 AM) [facility]2022-07-25 15:00:00 Test Item Value Reference Range Interpretation Comments Nucleated Cells BF (test code = 273 Nucleated Cells BF) [facility]2022-07-25 15:00:00 Test Item Value Reference Range Interpretation Comments RBC BF (test code = RBC BF) 419 [facility]2022-07-25 15:00:00 Test Item Value Reference Range Interpretation Comments Neutrophils BF (test code = Neutrophils 10 BF) [facility]2022-07-25 15:00:00 Test Item Value Reference Range Interpretation Comments Lymph BF (test code = Lymph BF) 36 [facility]2022-07-25 15:00:00 Test Item Value Reference Range Interpretation Comments Macrophage BF (test code = Macrophage 48 BF) [facility]2022-07-25 15:00:00 Test Item Value Reference Range Interpretation Comments Meso BF (test code = Meso BF) 6 [facility]2022-07-25 15:00:00 Test Item Value Reference Range Interpretation Comments Comment BF (test Differential confirmed. code = Comment BF) mesothlial cells and mixed inflammation. performed by Dr. Rosendo Chapa [facility]2022-07-25 15:00:00 Test Item Value Reference Range Interpretation Comments Glucose BF (test code = Glucose BF) 154 [facility]2022-07-25 15:00:00 Test Item Value Reference Range Interpretation Comments Gluc BF Type (test Pleural *NA*(06/13/22 code = Gluc BF Type) 10:00 AM) [facility]2022-07-25 15:00:00 Test Item Value Reference Range Interpretation Comments LDH BF (test code = LDH BF) 74 [facility]2022-07-25 15:00:00 Test Item Value Reference Range Interpretation Comments LDH BF Type (test Pleural *NA*(06/13/22 code = LDH BF Type) 10:00 AM) [facility]2022-07-25 15:00:00 Test Item Value Reference Range Interpretation Comments pH BF Type (test code Pleural (06/13/22 10:00 = pH BF Type) AM) [facility]2022-07-25 15:00:00 Test Item Value Reference Range Interpretation Comments pH BF (test code = pH BF) 8.[address] [facility]2022-07-25 15:00:00 Test Item Value Reference Range Interpretation Comments Protein BF (test code = Protein BF) 1.0 [facility]2022-07-25 15:00:00 Test Item Value Reference Range Interpretation Comments Prot BF Type (test Pleural *NA*(06/13/22 code = Prot BF Type) 10:00 AM) [facility] [id number] 15:00:00 Test Item Value Reference Range Interpretation Comments Gram Stain Report Few WBC's No Organisms (test code = Gram Seen Stain Report) [facility]: Aspirate/Body Fluid/[id number] 15:00:00 Test Item Value Reference Range Interpretation Comments Culture: Aspirate/Body Fluid/Tissue No Growth (test code = Culture: Aspirate/Body Fluid/Tissue) [facility]2022-07-25 15:00:00 Test Item Value Reference Range Interpretation Comments Albumin BF (test code = Albumin BF) 0.6 [facility]2022-07-25 15:00:00 Test Item Value Reference Range Interpretation Comments Alb BF Type (test Pleural *NA*(06/13/22 code = Alb BF Type) 10:00 AM) [facility]2022-07-25 15:00:00 Test Item Value Reference Range Interpretation Comments CellCnt BF Type (test Thoracen (06/13/22 10:00 code = CellCnt BF AM) Type) [facility]2022-07-25 15:00:00 Test Item Value Reference Range Interpretation Comments Color BF (test code = Yellow (06/13/22 10:00 Color BF) AM) [facility]2022-07-25 15:00:00 Test Item Value Reference Range Interpretation Comments Clarity BF (test code = Clear (06/13/22 10:00 Clarity BF) AM) [facility]2022-07-25 15:00:00 Test Item Value Reference Range Interpretation Comments Supernat BF (test code = Yellow *ABN*(06/13/22 Supernat BF) 10:00 AM) [facility]2022-07-25 15:00:00 Test Item Value Reference Range Interpretation Comments Nucleated Cells BF (test code = 273 Nucleated Cells BF) [facility]2022-07-25 15:00:00 Test Item Value Reference Range Interpretation Comments RBC BF (test code = RBC BF) 419 [facility]2022-07-25 15:00:00 Test Item Value Reference Range Interpretation Comments Neutrophils BF (test code = Neutrophils 10 BF) [facility]2022-07-25 15:00:00 Test Item Value Reference Range Interpretation Comments Lymph BF (test code = Lymph BF) 36 [facility] [id number] 15:00:00 Test Item Value Reference Range Interpretation Comments Macrophage BF (test code = Macrophage 48 BF) [facility] [id number] 15:00:00 Test Item Value Reference Range Interpretation Comments Meso BF (test code = Meso BF) 6 [facility]2022-07-25 15:00:00 Test Item Value Reference Range Interpretation Comments Comment BF (test Differential confirmed. code = Comment BF) mesothlial cells and mixed inflammation. performed by Dr. Rosendo Chapa [facility] [id number] 15:00:00 Test Item Value Reference Range Interpretation Comments Glucose BF (test code = Glucose BF) 154 [facility]2022-07-25 15:00:00 Test Item Value Reference Range Interpretation Comments Gluc BF Type (test Pleural *NA*(06/13/22 code = Gluc BF Type) 10:00 AM) [facility]2022-07-25 15:00:00 Test Item Value Reference Range Interpretation Comments LDH BF (test code = LDH BF) 74 [facility]2022-07-25 15:00:00 Test Item Value Reference Range Interpretation Comments LDH BF Type (test Pleural *NA*(06/13/22 code = LDH BF Type) 10:00 AM) [facility]2022-07-25 15:00:00 Test Item Value Reference Range Interpretation Comments pH BF Type (test code Pleural (06/13/22 10:00 = pH BF Type) AM) [facility]2022-07-25 15:00:00 Test Item Value Reference Range Interpretation Comments pH BF (test code = pH BF) 8.00 1 [facility]ville[facility] [id number] 15:00:00 Test Item Value Reference Range Interpretation Comments Protein BF (test code = Protein BF) 1.0 [facility] [id number] 15:00:00 Test Item Value Reference Range Interpretation Comments Prot BF Type (test Pleural *NA*(06/13/22 code = Prot BF Type) 10:00 AM) [facility] [id number] 15:00:00 Test Item Value Reference Range Interpretation Comments Gram Stain Report Few WBC's No Organisms (test code = Gram Seen Stain Report) [facility] Aspirate/Body Fluid/[id number] 15:00:00 Test Item Value Reference Range Interpretation Comments Culture: Aspirate/Body Fluid/Tissue No Growth (test code = Culture: Aspirate/Body Fluid/Tissue) [facility]2022-07-25 15:00:00 Test Item Value Reference Range Interpretation Comments Albumin BF (test code = Albumin BF) 0.6 [facility]2022-07-25 15:00:00 Test Item Value Reference Range Interpretation Comments Alb BF Type (test Pleural *NA*(06/13/22 code = Alb BF Type) 10:00 AM) [facility]2022-07-25 15:00:00 Test Item Value Reference Range Interpretation Comments CellCnt BF Type (test Thoracen (06/13/22 10:00 code = CellCnt BF AM) Type) [facility]2022-07-25 15:00:00 Test Item Value Reference Range Interpretation Comments Color BF (test code = Yellow (06/13/22 10:00 Color BF) AM) [facility]2022-07-25 15:00:00 Test Item Value Reference Range Interpretation Comments Clarity BF (test code = Clear (06/13/22 10:00 Clarity BF) AM) [facility]2022-07-25 15:00:00 Test Item Value Reference Range Interpretation Comments Supernat BF (test code = Yellow *ABN*(06/13/22 Supernat BF) 10:00 AM) [facility]2022-07-25 15:00:00 Test Item Value Reference Range Interpretation Comments Nucleated Cells BF (test code = 273 Nucleated Cells BF) [facility]2022-07-25 15:00:00 Test Item Value Reference Range Interpretation Comments RBC BF (test code = RBC BF) 419 [facility]2022-07-25 15:00:00 Test Item Value Reference Range Interpretation Comments Neutrophils BF (test code = Neutrophils 10 [address]) [facility]2022-07-25 15:00:00 Test Item Value Reference Range Interpretation Comments Lymph BF (test code = Lymph BF) 36 [facility]2022-07-25 15:00:00 Test Item Value Reference Range Interpretation Comments Macrophage BF (test code = Macrophage [address]) [facility]2022-07-25 15:00:00 Test Item Value Reference Range Interpretation Comments Meso BF (test code = Meso BF) 6 [facility]2022-07-25 15:00:00 Test Item Value Reference Range Interpretation Comments Comment BF (test Differential confirmed. code = Comment BF) mesothlial cells and mixed inflammation. performed by Dr. Rosendo Chapa [facility] [id number] 15:00:00 Test Item Value Reference Range Interpretation Comments Glucose BF (test code = Glucose BF) 154 [facility] [id number] 15:00:00 Test Item Value Reference Range Interpretation Comments Gluc BF Type (test Pleural *NA*(06/13/22 code = Gluc BF Type) 10:00 AM) [facility]2022-07-25 15:00:00 Test Item Value Reference Range Interpretation Comments LDH BF (test code = LDH BF) 74 [facility]2022-07-25 15:00:00 Test Item Value Reference Range Interpretation Comments LDH BF Type (test Pleural *NA*(06/13/22 code = LDH BF Type) 10:00 AM) [facility] [id number] 15:00:00 Test Item Value Reference Range Interpretation Comments pH BF Type (test code Pleural (06/13/22 10:00 = pH BF Type) AM) [facility]2022-07-25 15:00:00 Test Item Value Reference Range Interpretation Comments pH BF (test code = pH BF) 8.[address] [facility] [id number] 15:00:00 Test Item Value Reference Range Interpretation Comments Protein BF (test code = Protein BF) 1.0 [facility] [id number] 15:00:00 Test Item Value Reference Range Interpretation Comments Prot BF Type (test Pleural *NA*(06/13/22 code = Prot BF Type) 10:00 AM) [facility] [id number] 15:00:00 Test Item Value Reference Range Interpretation Comments Gram Stain Report Few WBC's No Organisms (test code = Gram Seen Stain Report) [facility] Aspirate/Body Fluid/[id number] 15:00:00 Test Item Value Reference Range Interpretation Comments Culture: Aspirate/Body Fluid/Tissue No Growth (test code = Culture: Aspirate/Body Fluid/Tissue) [facility]2022-07-25 15:00:00 Test Item Value Reference Range Interpretation Comments Albumin BF (test code = Albumin BF) 0.6 [facility]2022-07-25 15:00:00 Test Item Value Reference Range Interpretation Comments Alb BF Type (test Pleural *NA*(06/13/22 code = Alb BF Type) 10:00 AM) [facility]2022-07-25 15:00:00 Test Item Value Reference Range Interpretation Comments CellCnt BF Type (test Thoracen (06/13/22 10:00 code = CellCnt BF AM) Type) [facility]2022-07-25 15:00:00 Test Item Value Reference Range Interpretation Comments Color BF (test code = Yellow (06/13/22 10:00 Color BF) AM) [facility]2022-07-25 15:00:00 Test Item Value Reference Range Interpretation Comments Clarity BF (test code = Clear (06/13/22 10:00 Clarity BF) AM) [facility]2022-07-25 15:00:00 Test Item Value Reference Range Interpretation Comments Supernat BF (test code = Yellow *ABN*(06/13/22 Supernat BF) 10:00 AM) [facility]2022-07-25 15:00:00 Test Item Value Reference Range Interpretation Comments Nucleated Cells BF (test code = 273 Nucleated Cells BF) [facility]2022-07-25 15:00:00 Test Item Value Reference Range Interpretation Comments RBC BF (test code = RBC BF) 419 [facility]2022-07-25 15:00:00 Test Item Value Reference Range Interpretation Comments Neutrophils BF (test code = Neutrophils [address]) [facility]2022-07-25 15:00:00 Test Item Value Reference Range Interpretation Comments Lymph BF (test code = Lymph BF) 36 [facility] [id number] 15:00:00 Test Item Value Reference Range Interpretation Comments Macrophage BF (test code = Macrophage 48 [address]) [facility]2022-07-25 15:00:00 Test Item Value Reference Range Interpretation Comments Meso BF (test code = Meso BF) 6 [facility] [id number] 15:00:00 Test Item Value Reference Range Interpretation Comments Comment BF (test Differential confirmed. code = Comment BF) mesothlial cells and mixed inflammation. performed by Dr. Rosendo Chapa [facility] [id number] 15:00:00 Test Item Value Reference Range Interpretation Comments Glucose BF (test code = Glucose BF) 154 [facility] [id number] 15:00:00 Test Item Value Reference Range Interpretation Comments Gluc BF Type (test Pleural *NA*(06/13/22 code = Gluc BF Type) 10:00 AM) [facility]2022-07-25 15:00:00 Test Item Value Reference Range Interpretation Comments LDH BF (test code = LDH BF) 74 [facility] [id number] 15:00:00 Test Item Value Reference Range Interpretation Comments LDH BF Type (test Pleural *NA*(06/13/22 code = LDH BF Type) 10:00 AM) [facility]2022-07-25 15:00:00 Test Item Value Reference Range Interpretation Comments pH BF Type (test code Pleural (06/13/22 10:00 = pH BF Type) AM) [facility]2022-07-25 15:00:00 Test Item Value Reference Range Interpretation Comments pH BF (test code = pH BF) 8.[address] [facility]2022-07-25 15:00:00 Test Item Value Reference Range Interpretation Comments Protein BF (test code = Protein BF) 1.0 [facility]2022-07-25 15:00:00 Test Item Value Reference Range Interpretation Comments Prot BF Type (test Pleural *NA*(06/13/22 code = Prot BF Type) 10:00 AM) [facility] [id number] 15:00:00 Test Item Value Reference Range Interpretation Comments Gram Stain Report Few WBC's No Organisms (test code = Gram Seen Stain Report) [facility] Aspirate/Body Fluid/[id number] 15:00:00 Test Item Value Reference Range Interpretation Comments Culture: Aspirate/Body Fluid/Tissue No Growth (test code = Culture: Aspirate/Body Fluid/Tissue) [facility] [id number] 15:00:00 Test Item Value Reference Range Interpretation Comments Albumin BF (test code = Albumin BF) 0.6 [facility]2022-07-25 15:00:00 Test Item Value Reference Range Interpretation Comments Alb BF Type (test Pleural *NA*(06/13/22 code = Alb BF Type) 10:00 AM) [facility]2022-07-25 15:00:00 Test Item Value Reference Range Interpretation Comments CellCnt BF Type (test Thoracen (06/13/22 10:00 code = CellCnt BF AM) Type) [facility]2022-07-25 15:00:00 Test Item Value Reference Range Interpretation Comments Color BF (test code = Yellow (06/13/22 10:00 Color BF) AM) [facility]2022-07-25 15:00:00 Test Item Value Reference Range Interpretation Comments Clarity BF (test code = Clear (06/13/22 10:00 Clarity BF) AM) [facility]2022-07-25 15:00:00 Test Item Value Reference Range Interpretation Comments Supernat BF (test code = Yellow *ABN*(06/13/22 Supernat BF) 10:00 AM) [facility]2022-07-25 15:00:00 Test Item Value Reference Range Interpretation Comments Nucleated Cells BF (test code = 273 Nucleated Cells BF) [facility]2022-07-25 15:00:00 Test Item Value Reference Range Interpretation Comments RBC BF (test code = RBC BF) 419 [facility]2022-07-25 15:00:00 Test Item Value Reference Range Interpretation Comments Neutrophils BF (test code = Neutrophils 10 [address]) [facility]2022-07-25 15:00:00 Test Item Value Reference Range Interpretation Comments Lymph BF (test code = Lymph BF) 36 [facility]2022-07-25 15:00:00 Test Item Value Reference Range Interpretation Comments Macrophage BF (test code = Macrophage [address]) [facility]2022-07-25 15:00:00 Test Item Value Reference Range Interpretation Comments Meso BF (test code = Meso BF) 6 [facility]2022-07-25 15:00:00 Test Item Value Reference Range Interpretation Comments Comment BF (test Differential confirmed. code = Comment BF) mesothlial cells and mixed inflammation. performed by Dr. Rosendo Chapa [facility]2022-07-25 15:00:00 Test Item Value Reference Range Interpretation Comments Glucose BF (test code = Glucose BF) 154 [facility] [id number] 15:00:00 Test Item Value Reference Range Interpretation Comments Gluc BF Type (test Pleural *NA*(06/13/22 code = Gluc BF Type) 10:00 AM) [facility] [id number] 15:00:00 Test Item Value Reference Range Interpretation Comments LDH BF (test code = LDH BF) 74 [facility] [id number] 15:00:00 Test Item Value Reference Range Interpretation Comments LDH BF Type (test Pleural *NA*(06/13/22 code = LDH BF Type) 10:00 AM) [facility] [id number] 15:00:00 Test Item Value Reference Range Interpretation Comments pH BF Type (test code Pleural (06/13/22 10:00 = pH BF Type) AM) [facility] [id number] 15:00:00 Test Item Value Reference Range Interpretation Comments pH BF (test code = pH BF) 8.00 1 [facility] [id number] 15:00:00 Test Item Value Reference Range Interpretation Comments Protein BF (test code = Protein BF) 1.0 [facility] [id number] 15:00:00 Test Item Value Reference Range Interpretation Comments Prot BF Type (test Pleural *NA*(06/13/22 code = Prot BF Type) 10:00 AM) [facility] [id number] 15:00:00 Test Item Value Reference Range Interpretation Comments Gram Stain Report Few WBC's No Organisms (test code = Gram Seen Stain Report) [facility] Aspirate/Body Fluid/[id number] 15:00:00 Test Item Value Reference Range Interpretation Comments Culture: Aspirate/Body Fluid/Tissue No Growth (test code = Culture: Aspirate/Body Fluid/Tissue) [facility] [id number] 15:00:00 Test Item Value Reference Range Interpretation Comments Albumin BF (test code = Albumin BF) 0.6 [facility] [id number] 15:00:00 Test Item Value Reference Range Interpretation Comments Alb BF Type (test Pleural *NA*(06/13/22 code = Alb BF Type) 10:00 AM) [facility] [id number] 15:00:00 Test Item Value Reference Range Interpretation Comments CellCnt BF Type (test Thoracen (06/13/22 10:00 code = CellCnt BF AM) Type) [facility]2022-07-25 15:00:00 Test Item Value Reference Range Interpretation Comments Color BF (test code = Yellow (06/13/22 10:00 Color BF) AM) [facility]2022-07-25 15:00:00 Test Item Value Reference Range Interpretation Comments Clarity BF (test code = Clear (06/13/22 10:00 Clarity BF) AM) [facility]2022-07-25 15:00:00 Test Item Value Reference Range Interpretation Comments Supernat BF (test code = Yellow *ABN*(06/13/22 Supernat BF) 10:00 AM) [facility]2022-07-25 15:00:00 Test Item Value Reference Range Interpretation Comments Nucleated Cells BF (test code = 273 Nucleated Cells BF) [facility]2022-07-25 15:00:00 Test Item Value Reference Range Interpretation Comments RBC BF (test code = RBC BF) 419 [facility]2022-07-25 15:00:00 Test Item Value Reference Range Interpretation Comments Neutrophils BF (test code = Neutrophils 10 BF) [facility]2022-07-25 15:00:00 Test Item Value Reference Range Interpretation Comments Lymph BF (test code = Lymph BF) 36 [facility]2022-07-25 15:00:00 Test Item Value Reference Range Interpretation Comments Macrophage BF (test code = Macrophage 48 BF) [facility]2022-07-25 15:00:00 Test Item Value Reference Range Interpretation Comments Meso BF (test code = Meso BF) 6 [facility]2022-07-25 15:00:00 Test Item Value Reference Range Interpretation Comments Comment BF (test Differential confirmed. code = Comment BF) mesothlial cells and mixed inflammation. performed by Dr. Rosendo Chapa [facility]2022-07-25 15:00:00 Test Item Value Reference Range Interpretation Comments Glucose BF (test code = Glucose BF) 154 [facility]2022-07-25 15:00:00 Test Item Value Reference Range Interpretation Comments Gluc BF Type (test Pleural *NA*(06/13/22 code = Gluc BF Type) 10:00 AM) [facility] [id number] 15:00:00 Test Item Value Reference Range Interpretation Comments LDH BF (test code = LDH BF) 74 [facility] [id number] 15:00:00 Test Item Value Reference Range Interpretation Comments LDH BF Type (test Pleural *NA*(06/13/22 code = LDH BF Type) 10:00 AM) [facility] [id number] 15:00:00 Test Item Value Reference Range Interpretation Comments pH BF Type (test code Pleural (06/13/22 10:00 = pH BF Type) AM) [facility] [id number] 15:00:00 Test Item Value Reference Range Interpretation Comments pH BF (test code = pH BF) 8.00 1 [facility] [id number] 15:00:00 Test Item Value Reference Range Interpretation Comments Protein BF (test code = Protein BF) 1.0 [facility] [id number] 15:00:00 Test Item Value Reference Range Interpretation Comments Prot BF Type (test Pleural *NA*(06/13/22 code = Prot BF Type) 10:00 AM) [facility] [id number] 15:00:00 Test Item Value Reference Range Interpretation Comments Gram Stain Report Few WBC's No Organisms (test code = Gram Seen Stain Report) [facility] Aspirate/Body Fluid/[id number] 15:00:00 Test Item Value Reference Range Interpretation Comments Culture: Aspirate/Body Fluid/Tissue No Growth (test code = Culture: Aspirate/Body Fluid/Tissue) [facility] [id number] 15:00:00 Test Item Value Reference Range Interpretation Comments Albumin BF (test code = Albumin BF) 0.6 [facility] [id number] 15:00:00 Test Item Value Reference Range Interpretation Comments Alb BF Type (test Pleural *NA*(06/13/22 code = Alb BF Type) 10:00 AM) [facility] [id number] 15:00:00 Test Item Value Reference Range Interpretation Comments CellCnt BF Type (test Thoracen (06/13/22 10:00 code = CellCnt BF AM) Type) [facility] [id number] 15:00:00 Test Item Value Reference Range Interpretation Comments Color BF (test code = Yellow (06/13/22 10:00 Color BF) AM) [facility]2022-07-25 15:00:00 Test Item Value Reference Range Interpretation Comments Clarity BF (test code = Clear (06/13/22 10:00 Clarity BF) AM) [facility]2022-07-25 15:00:00 Test Item Value Reference Range Interpretation Comments Supernat BF (test code = Yellow *ABN*(06/13/22 Supernat BF) 10:00 AM) [facility]2022-07-25 15:00:00 Test Item Value Reference Range Interpretation Comments Nucleated Cells BF (test code = 273 Nucleated Cells BF) [facility]2022-07-25 15:00:00 Test Item Value Reference Range Interpretation Comments RBC BF (test code = RBC BF) 419 [facility]2022-07-25 15:00:00 Test Item Value Reference Range Interpretation Comments Neutrophils BF (test code = Neutrophils 10 BF) [facility]2022-07-25 15:00:00 Test Item Value Reference Range Interpretation Comments Lymph BF (test code = Lymph BF) 36 [facility]2022-07-25 15:00:00 Test Item Value Reference Range Interpretation Comments Macrophage BF (test code = Macrophage 48 BF) [facility]2022-07-25 15:00:00 Test Item Value Reference Range Interpretation Comments Meso BF (test code = Meso BF) 6 [facility]2022-07-25 15:00:00 Test Item Value Reference Range Interpretation Comments Comment BF (test Differential confirmed. code = Comment BF) mesothlial cells and mixed inflammation. performed by Dr. Rosendo Chapa [facility]2022-07-25 15:00:00 Test Item Value Reference Range Interpretation Comments Glucose BF (test code = Glucose BF) 154 [facility]2022-07-25 15:00:00 Test Item Value Reference Range Interpretation Comments Gluc BF Type (test Pleural *NA*(06/13/22 code = Gluc BF Type) 10:00 AM) [facility]2022-07-25 15:00:00 Test Item Value Reference Range Interpretation Comments LDH BF (test code = LDH BF) 74 [facility]2022-07-25 15:00:00 Test Item Value Reference Range Interpretation Comments LDH BF Type (test Pleural *NA*(06/13/22 code = LDH BF Type) 10:00 AM) [facility] [id number] 15:00:00 Test Item Value Reference Range Interpretation Comments pH BF Type (test code Pleural (06/13/22 10:00 = pH BF Type) AM) [facility]2022-07-25 15:00:00 Test Item Value Reference Range Interpretation Comments pH BF (test code = pH BF) 8.[address] [facility] [id number] 15:00:00 Test Item Value Reference Range Interpretation Comments Protein BF (test code = Protein BF) 1.0 [facility]2022-07-25 15:00:00 Test Item Value Reference Range Interpretation Comments Prot BF Type (test Pleural *NA*(06/13/22 code = Prot BF Type) 10:00 AM) [facility] [id number] 15:00:00 Test Item Value Reference Range Interpretation Comments Gram Stain Report Few WBC's No Organisms (test code = Gram Seen Stain Report) [facility] Aspirate/Body Fluid/[id number] 15:00:00 Test Item Value Reference Range Interpretation Comments Culture: Aspirate/Body Fluid/Tissue No Growth (test code = Culture: Aspirate/Body Fluid/Tissue) [facility]2022-07-25 15:00:00 Test Item Value Reference Range Interpretation Comments Albumin BF (test code = Albumin BF) 0.6 [facility]2022-07-25 15:00:00 Test Item Value Reference Range Interpretation Comments Alb BF Type (test Pleural *NA*(06/13/22 code = Alb BF Type) 10:00 AM) [facility]2022-07-25 15:00:00 Test Item Value Reference Range Interpretation Comments CellCnt BF Type (test Thoracen (06/13/22 10:00 code = CellCnt BF AM) Type) [facility]2022-07-25 15:00:00 Test Item Value Reference Range Interpretation Comments Color BF (test code = Yellow (06/13/22 10:00 Color BF) AM) [facility]2022-07-25 15:00:00 Test Item Value Reference Range Interpretation Comments Clarity BF (test code = Clear (06/13/22 10:00 Clarity BF) AM) [facility]2022-07-25 15:00:00 Test Item Value Reference Range Interpretation Comments Supernat BF (test code = Yellow *ABN*(06/13/22 Supernat BF) 10:00 AM) [facility]2022-07-25 15:00:00 Test Item Value Reference Range Interpretation Comments Nucleated Cells BF (test code = 273 Nucleated Cells BF) [facility]2022-07-25 15:00:00 Test Item Value Reference Range Interpretation Comments RBC BF (test code = RBC BF) 419 [facility]2022-07-25 15:00:00 Test Item Value Reference Range Interpretation Comments Neutrophils BF (test code = Neutrophils 10 BF) [facility]2022-07-25 15:00:00 Test Item Value Reference Range Interpretation Comments Lymph BF (test code = Lymph BF) 36 [facility]2022-07-25 15:00:00 Test Item Value Reference Range Interpretation Comments Macrophage BF (test code = Macrophage 48 BF) [facility]2022-07-25 15:00:00 Test Item Value Reference Range Interpretation Comments Meso BF (test code = Meso BF) 6 [facility]2022-07-25 15:00:00 Test Item Value Reference Range Interpretation Comments Comment BF (test Differential confirmed. code = Comment BF) mesothlial cells and mixed inflammation. performed by Dr. Rosendo Chapa [facility]2022-07-25 15:00:00 Test Item Value Reference Range Interpretation Comments Glucose BF (test code = Glucose BF) 154 [facility]2022-07-25 15:00:00 Test Item Value Reference Range Interpretation Comments Gluc BF Type (test Pleural *NA*(06/13/22 code = Gluc BF Type) 10:00 AM) [facility]2022-07-25 15:00:00 Test Item Value Reference Range Interpretation Comments LDH BF (test code = LDH BF) 74 [facility]2022-07-25 15:00:00 Test Item Value Reference Range Interpretation Comments LDH BF Type (test Pleural *NA*(06/13/22 code = LDH BF Type) 10:00 AM) [facility] [facility]2022-[facility]25 15:00:00 Test Item Value Reference Range Interpretation Comments pH BF Type (test code Pleural (06/13/22 10:00 = pH BF Type) AM) [facility] [id number] 15:00:00 Test Item Value Reference Range Interpretation Comments pH BF (test code = pH BF) 8.[address] [facility] [id number] 15:00:00 Test Item Value Reference Range Interpretation Comments Protein BF (test code = Protein BF) 1.0 [facility] [id number] 15:00:00 Test Item Value Reference Range Interpretation Comments Prot BF Type (test Pleural *NA*(06/13/22 code = Prot BF Type) 10:00 AM) [facility] [id number] 15:00:00 Test Item Value Reference Range Interpretation Comments Gram Stain Report Few WBC's No Organisms (test code = Gram Seen Stain Report) [facility] Aspirate/Body Fluid/[id number] 15:00:00 Test Item Value Reference Range Interpretation Comments Culture: Aspirate/Body Fluid/Tissue No Growth (test code = Culture: Aspirate/Body Fluid/Tissue) [facility]2022-07-25 15:00:00 Test Item Value Reference Range Interpretation Comments Albumin BF (test code = Albumin BF) 0.6 [facility]2022-07-25 15:00:00 Test Item Value Reference Range Interpretation Comments Alb BF Type (test Pleural *NA*(06/13/22 code = Alb BF Type) 10:00 AM) [facility]2022-07-25 15:00:00 Test Item Value Reference Range Interpretation Comments CellCnt BF Type (test Thoracen (06/13/22 10:00 code = CellCnt BF AM) Type) [facility]2022-07-25 15:00:00 Test Item Value Reference Range Interpretation Comments Color BF (test code = Yellow (06/13/22 10:00 Color BF) AM) [facility]2022-07-25 15:00:00 Test Item Value Reference Range Interpretation Comments Clarity BF (test code = Clear (06/13/22 10:00 Clarity BF) AM) [facility]2022-07-25 15:00:00 Test Item Value Reference Range Interpretation Comments Supernat BF (test code = Yellow *ABN*(06/13/22 Supernat BF) 10:00 AM) [facility]2022-07-25 15:00:00 Test Item Value Reference Range Interpretation Comments Nucleated Cells BF (test code = 273 Nucleated Cells BF) [facility]2022-07-25 15:00:00 Test Item Value Reference Range Interpretation Comments RBC BF (test code = RBC BF) 419 [facility]2022-07-25 15:00:00 Test Item Value Reference Range Interpretation Comments Neutrophils BF (test code = Neutrophils [address]) [facility]2022-07-25 15:00:00 Test Item Value Reference Range Interpretation Comments Lymph BF (test code = Lymph BF) 36 [facility]2022-07-25 15:00:00 Test Item Value Reference Range Interpretation Comments Macrophage BF (test code = Macrophage [address]) [facility]2022-07-25 15:00:00 Test Item Value Reference Range Interpretation Comments Meso BF (test code = Meso BF) 6 [facility]2022-07-25 15:00:00 Test Item Value Reference Range Interpretation Comments Comment BF (test Differential confirmed. code = Comment BF) mesothlial cells and mixed inflammation. performed by Dr. Rosendo Chapa [facility]2022-07-25 15:00:00 Test Item Value Reference Range Interpretation Comments Glucose BF (test code = Glucose BF) 154 [facility]2022-07-25 15:00:00 Test Item Value Reference Range Interpretation Comments Gluc BF Type (test Pleural *NA*(06/13/22 code = Gluc BF Type) 10:00 AM) [facility]2022-07-25 15:00:00 Test Item Value Reference Range Interpretation Comments LDH BF (test code = LDH BF) 74 [facility]2022-07-25 15:00:00 Test Item Value Reference Range Interpretation Comments LDH BF Type (test Pleural *NA*(06/13/22 code = LDH BF Type) 10:00 AM) [facility]2022-07-25 15:00:00 Test Item Value Reference Range Interpretation Comments pH BF Type (test code Pleural (06/13/22 10:00 = pH BF Type) AM) [facility]2022-07-25 15:00:00 Test Item Value Reference Range Interpretation Comments pH BF (test code = pH BF) 8.[address] [facility] [id number] 15:00:00 Test Item Value Reference Range Interpretation Comments Protein BF (test code = Protein BF) 1.0 [facility] [id number] 15:00:00 Test Item Value Reference Range Interpretation Comments Prot BF Type (test Pleural *NA*(06/13/22 code = Prot BF Type) 10:00 AM) [facility] [id number] 15:00:00 Test Item Value Reference Range Interpretation Comments Gram Stain Report Few WBC's No Organisms (test code = Gram Seen Stain Report) [facility] Aspirate/Body Fluid/[id number] 15:00:00 Test Item Value Reference Range Interpretation Comments Culture: Aspirate/Body Fluid/Tissue No Growth (test code = Culture: Aspirate/Body Fluid/Tissue) [facility]2022-07-25 15:00:00 Test Item Value Reference Range Interpretation Comments Albumin BF (test code = Albumin BF) 0.6 [facility]2022-07-25 15:00:00 Test Item Value Reference Range Interpretation Comments Alb BF Type (test Pleural *NA*(06/13/22 code = Alb BF Type) 10:00 AM) [facility]2022-07-25 15:00:00 Test Item Value Reference Range Interpretation Comments CellCnt BF Type (test Thoracen (06/13/22 10:00 code = CellCnt BF AM) Type) [facility]2022-07-25 15:00:00 Test Item Value Reference Range Interpretation Comments Color BF (test code = Yellow (06/13/22 10:00 Color BF) AM) [facility]2022-07-25 15:00:00 Test Item Value Reference Range Interpretation Comments Clarity BF (test code = Clear (06/13/22 10:00 Clarity BF) AM) [facility]2022-07-25 15:00:00 Test Item Value Reference Range Interpretation Comments Supernat BF (test code = Yellow *ABN*(06/13/22 Supernat BF) 10:00 AM) [facility]2022-07-25 15:00:00 Test Item Value Reference Range Interpretation Comments Nucleated Cells BF (test code = 273 Nucleated Cells BF) [facility]2022-07-25 15:00:00 Test Item Value Reference Range Interpretation Comments RBC BF (test code = RBC BF) 419 [facility]2022-07-25 15:00:00 Test Item Value Reference Range Interpretation Comments Neutrophils BF (test code = Neutrophils [address]) [facility]2022-07-25 15:00:00 Test Item Value Reference Range Interpretation Comments Lymph BF (test code = Lymph BF) 36 [facility]2022-07-25 15:00:00 Test Item Value Reference Range Interpretation Comments Macrophage BF (test code = Macrophage [address]) [facility]2022-07-25 15:00:00 Test Item Value Reference Range Interpretation Comments Meso BF (test code = Meso BF) 6 [facility]2022-07-25 15:00:00 Test Item Value Reference Range Interpretation Comments Comment BF (test Differential confirmed. code = Comment BF) mesothlial cells and mixed inflammation. performed by Dr. Rosendo Chapa [facility]2022-07-25 15:00:00 Test Item Value Reference Range Interpretation Comments Glucose BF (test code = Glucose BF) 154 [facility]2022-07-25 15:00:00 Test Item Value Reference Range Interpretation Comments Gluc BF Type (test Pleural *NA*(06/13/22 code = Gluc BF Type) 10:00 AM) [facility]2022-07-25 15:00:00 Test Item Value Reference Range Interpretation Comments LDH BF (test code = LDH BF) 74 [facility]2022-07-25 15:00:00 Test Item Value Reference Range Interpretation Comments LDH BF Type (test Pleural *NA*(06/13/22 code = LDH BF Type) 10:00 AM) [facility]2022-07-25 15:00:00 Test Item Value Reference Range Interpretation Comments pH BF Type (test code Pleural (06/13/22 10:00 = pH BF Type) AM) [facility]2022-07-25 15:00:00 Test Item Value Reference Range Interpretation Comments pH BF (test code = pH BF) 8.[address] [facility]2022-07-25 15:00:00 Test Item Value Reference Range Interpretation Comments Protein BF (test code = Protein BF) 1.0 [facility] [id number] 15:00:00 Test Item Value Reference Range Interpretation Comments Prot BF Type (test Pleural *NA*(06/13/22 code = Prot BF Type) 10:00 AM) [facility] [id number] 15:00:00 Test Item Value Reference Range Interpretation Comments Gram Stain Report Few WBC's No Organisms (test code = Gram Seen Stain Report) [facility]: Aspirate/Body Fluid/[id number] 15:00:00 Test Item Value Reference Range Interpretation Comments Culture: Aspirate/Body Fluid/Tissue No Growth (test code = Culture: Aspirate/Body Fluid/Tissue) [facility]2022-07-25 15:00:00 Test Item Value Reference Range Interpretation Comments Albumin BF (test code = Albumin BF) 0.6 [facility]2022-07-25 15:00:00 Test Item Value Reference Range Interpretation Comments Alb BF Type (test Pleural *NA*(06/13/22 code = Alb BF Type) 10:00 AM) [facility]2022-07-25 15:00:00 Test Item Value Reference Range Interpretation Comments CellCnt BF Type (test Thoracen (06/13/22 10:00 code = CellCnt BF AM) Type) [facility]2022-07-25 15:00:00 Test Item Value Reference Range Interpretation Comments Color BF (test code = Yellow (06/13/22 10:00 Color BF) AM) [facility]2022-07-25 15:00:00 Test Item Value Reference Range Interpretation Comments Clarity BF (test code = Clear (06/13/22 10:00 Clarity BF) AM) [facility]2022-07-25 15:00:00 Test Item Value Reference Range Interpretation Comments Supernat BF (test code = Yellow *ABN*(06/13/22 Supernat BF) 10:00 AM) [facility]2022-07-25 15:00:00 Test Item Value Reference Range Interpretation Comments Nucleated Cells BF (test code = 273 Nucleated Cells BF) [facility]2022-07-25 15:00:00 Test Item Value Reference Range Interpretation Comments RBC BF (test code = RBC BF) 419 [facility]2022-07-25 15:00:00 Test Item Value Reference Range Interpretation Comments Neutrophils BF (test code = Neutrophils [address]) [facility]2022-07-25 15:00:00 Test Item Value Reference Range Interpretation Comments Lymph BF (test code = Lymph BF) 36 [facility]2022-07-25 15:00:00 Test Item Value Reference Range Interpretation Comments Macrophage BF (test code = Macrophage [address]) [facility]2022-07-25 15:00:00 Test Item Value Reference Range Interpretation Comments Meso BF (test code = Meso BF) 6 [facility]2022-07-25 15:00:00 Test Item Value Reference Range Interpretation Comments Comment BF (test Differential confirmed. code = Comment BF) mesothlial cells and mixed inflammation. performed by Dr. Rosendo Chapa [facility]2022-07-25 15:00:00 Test Item Value Reference Range Interpretation Comments Glucose BF (test code = Glucose BF) 154 [facility]2022-07-25 15:00:00 Test Item Value Reference Range Interpretation Comments Gluc BF Type (test Pleural *NA*(06/13/22 code = Gluc BF Type) 10:00 AM) [facility]2022-07-25 15:00:00 Test Item Value Reference Range Interpretation Comments LDH BF (test code = LDH BF) 74 [facility]2022-07-25 15:00:00 Test Item Value Reference Range Interpretation Comments LDH BF Type (test Pleural *NA*(06/13/22 code = LDH BF Type) 10:00 AM) [facility]2022-07-25 15:00:00 Test Item Value Reference Range Interpretation Comments pH BF Type (test code Pleural (06/13/22 10:00 = pH BF Type) AM) [facility]2022-07-25 15:00:00 Test Item Value Reference Range Interpretation Comments pH BF (test code = pH BF) 8.[address] [facility]2022-07-25 15:00:00 Test Item Value Reference Range Interpretation Comments Protein BF (test code = Protein BF) 1.0 [facility]2022-07-25 15:00:00 Test Item Value Reference Range Interpretation Comments Prot BF Type (test Pleural *NA*(06/13/22 code = Prot BF Type) 10:00 AM) [facility] [id number] 15:00:00 Test Item Value Reference Range Interpretation Comments Gram Stain Report Few WBC's No Organisms (test code = Gram Seen Stain Report) [facility]: Aspirate/Body Fluid/[id number] 15:00:00 Test Item Value Reference Range Interpretation Comments Culture: Aspirate/Body Fluid/Tissue No Growth (test code = Culture: Aspirate/Body Fluid/Tissue) [facility]2022-07-25 15:00:00 Test Item Value Reference Range Interpretation Comments Albumin BF (test code = Albumin BF) 0.6 [facility]2022-07-25 15:00:00 Test Item Value Reference Range Interpretation Comments Alb BF Type (test Pleural *NA*(06/13/22 code = Alb BF Type) 10:00 AM) [facility]2022-07-25 15:00:00 Test Item Value Reference Range Interpretation Comments CellCnt BF Type (test Thoracen (06/13/22 10:00 code = CellCnt BF AM) Type) [facility]2022-07-25 15:00:00 Test Item Value Reference Range Interpretation Comments Color BF (test code = Yellow (06/13/22 10:00 Color BF) AM) [facility]2022-07-25 15:00:00 Test Item Value Reference Range Interpretation Comments Clarity BF (test code = Clear (06/13/22 10:00 Clarity BF) AM) [facility]2022-07-25 15:00:00 Test Item Value Reference Range Interpretation Comments Supernat BF (test code = Yellow *ABN*(06/13/22 Supernat BF) 10:00 AM) [facility]2022-07-25 15:00:00 Test Item Value Reference Range Interpretation Comments Nucleated Cells BF (test code = 273 Nucleated Cells BF) [facility]2022-07-25 15:00:00 Test Item Value Reference Range Interpretation Comments RBC BF (test code = RBC BF) 419 [facility]2022-07-25 15:00:00 Test Item Value Reference Range Interpretation Comments Neutrophils BF (test code = Neutrophils 10 BF) [facility]2022-07-25 15:00:00 Test Item Value Reference Range Interpretation Comments Lymph BF (test code = Lymph BF) 36 [facility] [id number] 15:00:00 Test Item Value Reference Range Interpretation Comments Macrophage BF (test code = Macrophage 48 BF) [facility] [id number] 15:00:00 Test Item Value Reference Range Interpretation Comments Meso BF (test code = Meso BF) 6 [facility]2022-07-25 15:00:00 Test Item Value Reference Range Interpretation Comments Comment BF (test Differential confirmed. code = Comment BF) mesothlial cells and mixed inflammation. performed by Dr. Rosendo Chapa [facility] [id number] 15:00:00 Test Item Value Reference Range Interpretation Comments Glucose BF (test code = Glucose BF) 154 [facility] [id number] 15:00:00 Test Item Value Reference Range Interpretation Comments Gluc BF Type (test Pleural *NA*(06/13/22 code = Gluc BF Type) 10:00 AM) [facility]2022-07-25 15:00:00 Test Item Value Reference Range Interpretation Comments LDH BF (test code = LDH BF) 74 [facility] [id number] 15:00:00 Test Item Value Reference Range Interpretation Comments LDH BF Type (test Pleural *NA*(06/13/22 code = LDH BF Type) 10:00 AM) [facility] [id number] 15:00:00 Test Item Value Reference Range Interpretation Comments pH BF Type (test code Pleural (06/13/22 10:00 = pH BF Type) AM) [facility]2022-07-25 15:00:00 Test Item Value Reference Range Interpretation Comments pH BF (test code = pH BF) 8.[address] [facility] [id number] 15:00:00 Test Item Value Reference Range Interpretation Comments Protein BF (test code = Protein BF) 1.0 [facility] [id number] 15:00:00 Test Item Value Reference Range Interpretation Comments Prot BF Type (test Pleural *NA*(06/13/22 code = Prot BF Type) 10:00 AM) [facility] [id number] 15:00:00 Test Item Value Reference Range Interpretation Comments Gram Stain Report Few WBC's No Organisms (test code = Gram Seen Stain Report) [facility]/Body Fluid/[id number] 15:00:00 Test Item Value Reference Range Interpretation Comments Culture: Aspirate/Body Fluid/Tissue No Growth (test code = Culture: Aspirate/Body Fluid/Tissue) [facility]2022-07-25 15:00:00 Test Item Value Reference Range Interpretation Comments Albumin BF (test code = Albumin BF) 0.6 [facility]2022-07-25 15:00:00 Test Item Value Reference Range Interpretation Comments Alb BF Type (test Pleural *NA*(06/13/22 code = Alb BF Type) 10:00 AM) [facility]2022-07-25 15:00:00 Test Item Value Reference Range Interpretation Comments CellCnt BF Type (test Thoracen (06/13/22 10:00 code = CellCnt BF AM) Type) [facility]2022-07-25 15:00:00 Test Item Value Reference Range Interpretation Comments Color BF (test code = Yellow (06/13/22 10:00 Color BF) AM) [facility]2022-07-25 15:00:00 Test Item Value Reference Range Interpretation Comments Clarity BF (test code = Clear (06/13/22 10:00 Clarity BF) AM) [facility]2022-07-25 15:00:00 Test Item Value Reference Range Interpretation Comments Supernat BF (test code = Yellow *ABN*(06/13/22 Supernat BF) 10:00 AM) [facility]2022-07-25 15:00:00 Test Item Value Reference Range Interpretation Comments Nucleated Cells BF (test code = 273 Nucleated Cells BF) [facility]2022-07-25 15:00:00 Test Item Value Reference Range Interpretation Comments RBC BF (test code = RBC BF) 419 [facility]2022-07-25 15:00:00 Test Item Value Reference Range Interpretation Comments Neutrophils BF (test code = Neutrophils 10 BF) [facility]2022-07-25 15:00:00 Test Item Value Reference Range Interpretation Comments Lymph BF (test code = Lymph BF) 36 [facility]2022-07-25 15:00:00 Test Item Value Reference Range Interpretation Comments Macrophage BF (test code = Macrophage 48 BF) [facility]2022-07-25 15:00:00 Test Item Value Reference Range Interpretation Comments Meso BF (test code = Meso BF) 6 [facility] [id number] 15:00:00 Test Item Value Reference Range Interpretation Comments Comment BF (test Differential confirmed. code = Comment BF) mesothlial cells and mixed inflammation. performed by Dr. Rosendo Chapa [facility]ville[facility] Harry [id number] 15:00:00 Test Item Value Reference Range Interpretation Comments Glucose BF (test code = Glucose BF) 154 [facility]ville[facility] [id number] 15:00:00 Test Item Value Reference Range Interpretation Comments Gluc BF Type (test Pleural *NA*(06/13/22 code = Gluc BF Type) 10:00 AM) [facility] [id number] 15:00:00 Test Item Value Reference Range Interpretation Comments LDH BF (test code = LDH BF) 74 [facility] [id number] 15:00:00 Test Item Value Reference Range Interpretation Comments LDH BF Type (test Pleural *NA*(06/13/22 code = LDH BF Type) 10:00 AM) [facility] [id number] 15:00:00 Test Item Value Reference Range Interpretation Comments pH BF Type (test code Pleural (06/13/22 10:00 = pH BF Type) AM) [facility] [id number] 15:00:00 Test Item Value Reference Range Interpretation Comments pH BF (test code = pH BF) 8.00 1 [facility] [id number] 15:00:00 Test Item Value Reference Range Interpretation Comments Protein BF (test code = Protein BF) 1.0 [facility] [id number] 15:00:00 Test Item Value Reference Range Interpretation Comments Prot BF Type (test Pleural *NA*(06/13/22 code = Prot BF Type) 10:00 AM) [facility] [id number] 15:00:00 Test Item Value Reference Range Interpretation Comments Gram Stain Report Few WBC's No Organisms (test code = Gram Seen Stain Report) [facility] Aspirate/Body Fluid/[id number] 15:00:00 Test Item Value Reference Range Interpretation Comments Culture: Aspirate/Body Fluid/Tissue No Growth (test code = Culture: Aspirate/Body Fluid/Tissue) [facility]2022-07-25 15:00:00 Test Item Value Reference Range Interpretation Comments Albumin BF (test code = Albumin BF) 0.6 [facility]2022-07-25 15:00:00 Test Item Value Reference Range Interpretation Comments Alb BF Type (test Pleural *NA*(06/13/22 code = Alb BF Type) 10:00 AM) [facility]2022-07-25 15:00:00 Test Item Value Reference Range Interpretation Comments CellCnt BF Type (test Thoracen (06/13/22 10:00 code = CellCnt BF AM) Type) [facility]2022-07-25 15:00:00 Test Item Value Reference Range Interpretation Comments Color BF (test code = Yellow (06/13/22 10:00 Color BF) AM) [facility]2022-07-25 15:00:00 Test Item Value Reference Range Interpretation Comments Clarity BF (test code = Clear (06/13/22 10:00 Clarity BF) AM) [facility]2022-07-25 15:00:00 Test Item Value Reference Range Interpretation Comments Supernat BF (test code = Yellow *ABN*(06/13/22 Supernat BF) 10:00 AM) [facility]2022-07-25 15:00:00 Test Item Value Reference Range Interpretation Comments Nucleated Cells BF (test code = 273 Nucleated Cells BF) [facility]2022-07-25 15:00:00 Test Item Value Reference Range Interpretation Comments RBC BF (test code = RBC BF) 419 [facility]2022-07-25 15:00:00 Test Item Value Reference Range Interpretation Comments Neutrophils BF (test code = Neutrophils 10 BF) [facility]2022-07-25 15:00:00 Test Item Value Reference Range Interpretation Comments Lymph BF (test code = Lymph BF) 36 [facility]2022-07-25 15:00:00 Test Item Value Reference Range Interpretation Comments Macrophage BF (test code = Macrophage 48 BF) [facility]2022-07-25 15:00:00 Test Item Value Reference Range Interpretation Comments Meso BF (test code = Meso BF) 6 [facility]2022-07-25 15:00:00 Test Item Value Reference Range Interpretation Comments Comment BF (test Differential confirmed. code = Comment BF) mesothlial cells and mixed inflammation. performed by Dr. Rosendo Chapa [facility] [id number] 15:00:00 Test Item Value Reference Range Interpretation Comments Glucose BF (test code = Glucose BF) 154 [facility] [id number] 15:00:00 Test Item Value Reference Range Interpretation Comments Gluc BF Type (test Pleural *NA*(06/13/22 code = Gluc BF Type) 10:00 AM) [facility] [place]2022-07-25 15:00:00 Test Item Value Reference Range Interpretation Comments LDH BF (test code = LDH BF) 74 [facility] [id number] 15:00:00 Test Item Value Reference Range Interpretation Comments LDH BF Type (test Pleural *NA*(06/13/22 code = LDH BF Type) 10:00 AM) [facility] [place]2022-07-25 15:00:00 Test Item Value Reference Range Interpretation Comments pH BF Type (test code Pleural (06/13/22 10:00 = pH BF Type) AM) [facility] [place]2022-07-25 15:00:00 Test Item Value Reference Range Interpretation Comments pH BF (test code = pH BF) 8.[address] [facility] [place]2022-07-25 15:00:00 Test Item Value Reference Range Interpretation Comments Protein BF (test code = Protein BF) 1.0 [facility] [place]2022-07-25 15:00:00 Test Item Value Reference Range Interpretation Comments Prot BF Type (test Pleural *NA*(06/13/22 code = Prot BF Type) 10:00 AM) [facility] [id number] 15:00:00 Test Item Value Reference Range Interpretation Comments Gram Stain Report Few WBC's No Organisms (test code = Gram Seen Stain Report) [facility] Aspirate/Body Fluid/[id number] 15:00:00 Test Item Value Reference Range Interpretation Comments Culture: Aspirate/Body Fluid/Tissue No Growth (test code = Culture: Aspirate/Body Fluid/Tissue) [facility] [id number] 15:00:00 Test Item Value Reference Range Interpretation Comments Albumin BF (test code = Albumin BF) 0.6 [facility] [place]2022-07-25 15:00:00 Test Item Value Reference Range Interpretation Comments Alb BF Type (test Pleural *NA*(06/13/22 code = Alb BF Type) 10:00 AM) [facility] [id number] 15:00:00 Test Item Value Reference Range Interpretation Comments CellCnt BF Type (test Thoracen (06/13/22 10:00 code = CellCnt BF AM) Type) [facility] [place]2022-07-25 15:00:00 Test Item Value Reference Range Interpretation Comments Color BF (test code = Yellow (06/13/22 10:00 Color BF) AM) [facility] [place]2022-07-25 15:00:00 Test Item Value Reference Range Interpretation Comments Clarity BF (test code = Clear (06/13/22 10:00 Clarity BF) AM) [facility] [place]2022-07-25 15:00:00 Test Item Value Reference Range Interpretation Comments Supernat BF (test code = Yellow *ABN*(06/13/22 Supernat BF) 10:00 AM) [facility] [place]2022-07-25 15:00:00 Test Item Value Reference Range Interpretation Comments Nucleated Cells BF (test code = 273 Nucleated Cells BF) [facility] [id number] 15:00:00 Test Item Value Reference Range Interpretation Comments RBC BF (test code = RBC BF) 419 [facility] [place]2022-07-25 15:00:00 Test Item Value Reference Range Interpretation Comments Neutrophils BF (test code = Neutrophils [address]) [facility] [id number] 15:00:00 Test Item Value Reference Range Interpretation Comments Lymph BF (test code = Lymph BF) 36 [facility] [id number] 15:00:00 Test Item Value Reference Range Interpretation Comments Macrophage BF (test code = Macrophage [address]) [facility] [id number] 15:00:00 Test Item Value Reference Range Interpretation Comments Meso BF (test code = Meso BF) 6 [facility] [id number] 15:00:00 Test Item Value Reference Range Interpretation Comments Comment BF (test Differential confirmed. code = Comment BF) mesothlial cells and mixed inflammation. performed by Dr. Rosendo Chapa [facility] [place]2022-07-25 15:00:00 Test Item Value Reference Range Interpretation Comments Glucose BF (test code = Glucose BF) 154 [facility] [id number] 15:00:00 Test Item Value Reference Range Interpretation Comments Gluc BF Type (test Pleural *NA*(06/13/22 code = Gluc BF Type) 10:00 AM) [facility] [id number] 15:00:00 Test Item Value Reference Range Interpretation Comments LDH BF (test code = LDH BF) 74 [facility] [id number] 15:00:00 Test Item Value Reference Range Interpretation Comments LDH BF Type (test Pleural *NA*(06/13/22 code = LDH BF Type) 10:00 AM) [facility] [id number] 15:00:00 Test Item Value Reference Range Interpretation Comments pH BF Type (test code Pleural (06/13/22 10:00 = pH BF Type) AM) [facility] [id number] 15:00:00 Test Item Value Reference Range Interpretation Comments pH BF (test code = pH BF) 8.00 1 [facility] [id number] 15:00:00 Test Item Value Reference Range Interpretation Comments Protein BF (test code = Protein BF) 1.0 [facility] [id number] 15:00:00 Test Item Value Reference Range Interpretation Comments Prot BF Type (test Pleural *NA*(06/13/22 code = Prot BF Type) 10:00 AM) [facility] [id number] 15:00:00 Test Item Value Reference Range Interpretation Comments Gram Stain Report Few WBC's No Organisms (test code = Gram Seen Stain Report) [facility] Aspirate/Body Fluid/[id number] 15:00:00 Test Item Value Reference Range Interpretation Comments Culture: Aspirate/Body Fluid/Tissue No Growth (test code = Culture: Aspirate/Body Fluid/Tissue) [facility] [id number] 15:00:00 Test Item Value Reference Range Interpretation Comments Albumin BF (test code = Albumin BF) 0.6 [facility] [id number] 15:00:00 Test Item Value Reference Range Interpretation Comments Alb BF Type (test Pleural *NA*(06/13/22 code = Alb BF Type) 10:00 AM) [facility] [id number] 15:00:00 Test Item Value Reference Range Interpretation Comments CellCnt BF Type (test Thoracen (06/13/22 10:00 code = CellCnt BF AM) Type) [facility] [place]2022-07-25 15:00:00 Test Item Value Reference Range Interpretation Comments Color BF (test code = Yellow (06/13/22 10:00 Color BF) AM) [facility] [place]2022-07-25 15:00:00 Test Item Value Reference Range Interpretation Comments Clarity BF (test code = Clear (06/13/22 10:00 Clarity BF) AM) [facility] [place]2022-07-25 15:00:00 Test Item Value Reference Range Interpretation Comments Supernat BF (test code = Yellow *ABN*(06/13/22 Supernat BF) 10:00 AM) [facility] [place]2022-07-25 15:00:00 Test Item Value Reference Range Interpretation Comments Nucleated Cells BF (test code = 273 Nucleated Cells BF) [facility] [place]2022-07-25 15:00:00 Test Item Value Reference Range Interpretation Comments RBC BF (test code = RBC BF) 419 [facility] [place]2022-07-25 15:00:00 Test Item Value Reference Range Interpretation Comments Neutrophils BF (test code = Neutrophils [address]) [facility] [place]2022-07-25 15:00:00 Test Item Value Reference Range Interpretation Comments Lymph BF (test code = Lymph BF) 36 [facility] [place]2022-07-25 15:00:00 Test Item Value Reference Range Interpretation Comments Macrophage BF (test code = Macrophage [address]) [facility] [place]2022-07-25 15:00:00 Test Item Value Reference Range Interpretation Comments Meso BF (test code = Meso BF) 6 [facility] [place]2022-07-25 15:00:00 Test Item Value Reference Range Interpretation Comments Comment BF (test Differential confirmed. code = Comment BF) mesothlial cells and mixed inflammation. performed by Dr. Rosendo Chapa [facility] [place]2022-07-25 15:00:00 Test Item Value Reference Range Interpretation Comments Glucose BF (test code = Glucose BF) 154 [facility] [place]2022-07-25 15:00:00 Test Item Value Reference Range Interpretation Comments Gluc BF Type (test Pleural *NA*(06/13/22 code = Gluc BF Type) 10:00 AM) [facility] [place]2022-07-25 15:00:00 Test Item Value Reference Range Interpretation Comments LDH BF (test code = LDH BF) 74 [facility] [id number] 15:00:00 Test Item Value Reference Range Interpretation Comments LDH BF Type (test Pleural *NA*(06/13/22 code = LDH BF Type) 10:00 AM) [facility] [id number] 15:00:00 Test Item Value Reference Range Interpretation Comments pH BF Type (test code Pleural (06/13/22 10:00 = pH BF Type) AM) [facility] [id number] 15:00:00 Test Item Value Reference Range Interpretation Comments pH BF (test code = pH BF) 8.00 1 [facility] [id number] 15:00:00 Test Item Value Reference Range Interpretation Comments Protein BF (test code = Protein BF) 1.0 [facility] [id number] 15:00:00 Test Item Value Reference Range Interpretation Comments Prot BF Type (test Pleural *NA*(06/13/22 code = Prot BF Type) 10:00 AM) [facility] [id number] 15:00:00 Test Item Value Reference Range Interpretation Comments Gram Stain Report Few WBC's No Organisms (test code = Gram Seen Stain Report) [facility]: Aspirate/Body Fluid/[id number] 15:00:00 Test Item Value Reference Range Interpretation Comments Culture: Aspirate/Body Fluid/Tissue No Growth (test code = Culture: Aspirate/Body Fluid/Tissue) [facility] [id number] 15:00:00 Test Item Value Reference Range Interpretation Comments Albumin BF (test code = Albumin BF) 0.6 [facility] [id number] 15:00:00 Test Item Value Reference Range Interpretation Comments Alb BF Type (test Pleural *NA*(06/13/22 code = Alb BF Type) 10:00 AM) [facility] [id number] 15:00:00 Test Item Value Reference Range Interpretation Comments CellCnt BF Type (test [place] (06/13/22 10:00 code = CellCnt BF AM) Type) [facility] [id number] 15:00:00 Test Item Value Reference Range Interpretation Comments Color BF (test code = Yellow (06/13/22 10:00 Color BF) AM) [facility] [place]2022-07-25 15:00:00 Test Item Value Reference Range Interpretation Comments Clarity BF (test code = Clear (06/13/22 10:00 Clarity BF) AM) [facility] [place]2022-07-25 15:00:00 Test Item Value Reference Range Interpretation Comments Supernat BF (test code = Yellow *ABN*(06/13/22 Supernat BF) 10:00 AM) [facility] [place]2022-07-25 15:00:00 Test Item Value Reference Range Interpretation Comments Nucleated Cells BF (test code = 273 Nucleated Cells BF) [facility]2022-07-25 15:00:00 Test Item Value Reference Range Interpretation Comments RBC BF (test code = RBC BF) 419 [facility] [place]2022-07-25 15:00:00 Test Item Value Reference Range Interpretation Comments Neutrophils BF (test code = Neutrophils [address]) [facility]2022-07-25 15:00:00 Test Item Value Reference Range Interpretation Comments Lymph BF (test code = Lymph BF) 36 [facility] [place]2022-07-25 15:00:00 Test Item Value Reference Range Interpretation Comments Macrophage BF (test code = Macrophage [address]) [facility]2022-07-25 15:00:00 Test Item Value Reference Range Interpretation Comments Meso BF (test code = Meso BF) 6 [facility] [place]2022-07-25 15:00:00 Test Item Value Reference Range Interpretation Comments Comment BF (test Differential confirmed. code = Comment BF) mesothlial cells and mixed inflammation. performed by Dr. Rosendo Chapa [facility] [place]2022-07-25 15:00:00 Test Item Value Reference Range Interpretation Comments Glucose BF (test code = Glucose BF) 154 [facility] [place]2022-07-25 15:00:00 Test Item Value Reference Range Interpretation Comments Gluc BF Type (test Pleural *NA*(06/13/22 code = Gluc BF Type) 10:00 AM) [facility] [place]2022-07-25 15:00:00 Test Item Value Reference Range Interpretation Comments LDH BF (test code = LDH BF) 74 [facility] [place]2022-07-25 15:00:00 Test Item Value Reference Range Interpretation Comments LDH BF Type (test Pleural *NA*(06/13/22 code = LDH BF Type) 10:00 AM) [facility] [id number] 15:00:00 Test Item Value Reference Range Interpretation Comments pH BF Type (test code Pleural (06/13/22 10:00 = pH BF Type) AM) [facility] [id number] 15:00:00 Test Item Value Reference Range Interpretation Comments pH BF (test code = pH BF) 8.00 1 [facility] [id number] 15:00:00 Test Item Value Reference Range Interpretation Comments Protein BF (test code = Protein BF) 1.0 [facility] [id number] 15:00:00 Test Item Value Reference Range Interpretation Comments Prot BF Type (test Pleural *NA*(06/13/22 code = Prot BF Type) 10:00 AM) [facility] [id number] 15:00:00 Test Item Value Reference Range Interpretation Comments Gram Stain Report Few WBC's No Organisms (test code = Gram Seen Stain Report) [facility] Aspirate/Body Fluid/[id number] 15:00:00 Test Item Value Reference Range Interpretation Comments Culture: Aspirate/Body Fluid/Tissue No Growth (test code = Culture: Aspirate/Body Fluid/Tissue) [facility] [place]2022-07-25 15:00:00 Test Item Value Reference Range Interpretation Comments Albumin BF (test code = Albumin BF) 0.6 [facility] [id number] 15:00:00 Test Item Value Reference Range Interpretation Comments Alb BF Type (test Pleural *NA*(06/13/22 code = Alb BF Type) 10:00 AM) [facility] [id number] 15:00:00 Test Item Value Reference Range Interpretation Comments CellCnt BF Type (test [place] (06/13/22 10:00 code = CellCnt BF AM) Type) [facility] [id number] 15:00:00 Test Item Value Reference Range Interpretation Comments Color BF (test code = Yellow (06/13/22 10:00 Color BF) AM) [facility] [id number] 15:00:00 Test Item Value Reference Range Interpretation Comments Clarity BF (test code = Clear (06/13/22 10:00 Clarity BF) AM) [facility]2022-07-25 15:00:00 Test Item Value Reference Range Interpretation Comments Supernat BF (test code = Yellow *ABN*(06/13/22 Supernat BF) 10:00 AM) [facility]2022-07-25 15:00:00 Test Item Value Reference Range Interpretation Comments Nucleated Cells BF (test code = 273 Nucleated Cells BF) [facility]2022-07-25 15:00:00 Test Item Value Reference Range Interpretation Comments RBC BF (test code = RBC BF) 419 [facility] [place]2022-07-25 15:00:00 Test Item Value Reference Range Interpretation Comments Neutrophils BF (test code = Neutrophils 10 [address]) [facility]2022-07-25 15:00:00 Test Item Value Reference Range Interpretation Comments Lymph BF (test code = Lymph BF) 36 [facility] [place]2022-07-25 15:00:00 Test Item Value Reference Range Interpretation Comments Macrophage BF (test code = Macrophage [address]) [facility]2022-07-25 15:00:00 Test Item Value Reference Range Interpretation Comments Meso BF (test code = Meso BF) 6 [facility]2022-07-25 15:00:00 Test Item Value Reference Range Interpretation Comments Comment BF (test Differential confirmed. code = Comment BF) mesothlial cells and mixed inflammation. performed by Dr. Rosendo Chapa [facility]2022-07-25 15:00:00 Test Item Value Reference Range Interpretation Comments Glucose BF (test code = Glucose BF) 154 [facility] [place]2022-07-25 15:00:00 Test Item Value Reference Range Interpretation Comments Gluc BF Type (test Pleural *NA*(06/13/22 code = Gluc BF Type) 10:00 AM) [facility]2022-07-25 15:00:00 Test Item Value Reference Range Interpretation Comments LDH BF (test code = LDH BF) 74 [facility]2022-07-25 15:00:00 Test Item Value Reference Range Interpretation Comments LDH BF Type (test Pleural *NA*(06/13/22 code = LDH BF Type) 10:00 AM) [facility]2022-07-25 15:00:00 Test Item Value Reference Range Interpretation Comments pH BF Type (test code Pleural (06/13/22 10:00 = pH BF Type) AM) [facility] [id number] 15:00:00 Test Item Value Reference Range Interpretation Comments pH BF (test code = pH BF) 8.[address] [facility] [id number] 15:00:00 Test Item Value Reference Range Interpretation Comments Protein BF (test code = Protein BF) 1.0 [facility] [id number] 15:00:00 Test Item Value Reference Range Interpretation Comments Prot BF Type (test Pleural *NA*(06/13/22 code = Prot BF Type) 10:00 AM) [facility] [id number] 15:00:00 Test Item Value Reference Range Interpretation Comments Gram Stain Report Few WBC's No Organisms (test code = Gram Seen Stain Report) [facility] Aspirate/Body Fluid/[id number] 15:00:00 Test Item Value Reference Range Interpretation Comments Culture: Aspirate/Body Fluid/Tissue No Growth (test code = Culture: Aspirate/Body Fluid/Tissue) [facility]2022-07-25 15:00:00 Test Item Value Reference Range Interpretation Comments Albumin BF (test code = Albumin BF) 0.6 [facility]2022-07-25 15:00:00 Test Item Value Reference Range Interpretation Comments Alb BF Type (test Pleural *NA*(06/13/22 code = Alb BF Type) 10:00 AM) [facility]2022-07-25 15:00:00 Test Item Value Reference Range Interpretation Comments CellCnt BF Type (test Thorac[place] (06/13/22 10:00 code = CellCnt BF AM) Type) [facility]2022-07-25 15:00:00 Test Item Value Reference Range Interpretation Comments Color BF (test code = Yellow (06/13/22 10:00 Color BF) AM) [facility]2022-07-25 15:00:00 Test Item Value Reference Range Interpretation Comments Clarity BF (test code = Clear (06/13/22 10:00 Clarity BF) AM) [facility]2022-07-25 15:00:00 Test Item Value Reference Range Interpretation Comments Supernat BF (test code = Yellow *ABN*(06/13/22 Supernat BF) 10:00 AM) [facility]2022-07-25 15:00:00 Test Item Value Reference Range Interpretation Comments Nucleated Cells BF (test code = 273 Nucleated Cells BF) [facility]2022-07-25 15:00:00 Test Item Value Reference Range Interpretation Comments RBC BF (test code = RBC BF) 419 [facility]2022-07-25 15:00:00 Test Item Value Reference Range Interpretation Comments Neutrophils BF (test code = Neutrophils 10 BF) [facility]2022-07-25 15:00:00 Test Item Value Reference Range Interpretation Comments Lymph BF (test code = Lymph BF) 36 [facility]2022-07-25 15:00:00 Test Item Value Reference Range Interpretation Comments Macrophage BF (test code = Macrophage 48 BF) [facility]2022-07-25 15:00:00 Test Item Value Reference Range Interpretation Comments Meso BF (test code = Meso BF) 6 [facility]2022-07-25 15:00:00 Test Item Value Reference Range Interpretation Comments Comment BF (test Differential confirmed. code = Comment BF) mesothlial cells and mixed inflammation. performed by Dr. Rosendo Chapa [facility]2022-07-25 15:00:00 Test Item Value Reference Range Interpretation Comments Glucose BF (test code = Glucose BF) 154 [facility]2022-07-25 15:00:00 Test Item Value Reference Range Interpretation Comments Gluc BF Type (test Pleural *NA*(06/13/22 code = Gluc BF Type) 10:00 AM) [facility]2022-07-25 15:00:00 Test Item Value Reference Range Interpretation Comments LDH BF (test code = LDH BF) 74 [facility]2022-07-25 15:00:00 Test Item Value Reference Range Interpretation Comments LDH BF Type (test Pleural *NA*(06/13/22 code = LDH BF Type) 10:00 AM) [facility]2022-07-25 15:00:00 Test Item Value Reference Range Interpretation Comments pH BF Type (test code Pleural (06/13/22 10:00 = pH BF Type) AM) [facility]2022-07-25 15:00:00 Test Item Value Reference Range Interpretation Comments pH BF (test code = pH BF) 8.[address] [facility] [id number] 15:00:00 Test Item Value Reference Range Interpretation Comments Protein BF (test code = Protein BF) 1.0 [facility] [id number] 15:00:00 Test Item Value Reference Range Interpretation Comments Prot BF Type (test Pleural *NA*(06/13/22 code = Prot BF Type) 10:00 AM) [facility] [id number] 15:00:00 Test Item Value Reference Range Interpretation Comments Gram Stain Report Few WBC's No Organisms (test code = Gram Seen Stain Report) [facility] Aspirate/Body Fluid/[id number] 15:00:00 Test Item Value Reference Range Interpretation Comments Culture: Aspirate/Body Fluid/Tissue No Growth (test code = Culture: Aspirate/Body Fluid/Tissue) [facility]2022-07-25 15:00:00 Test Item Value Reference Range Interpretation Comments Albumin BF (test code = Albumin BF) 0.6 [facility]2022-07-25 15:00:00 Test Item Value Reference Range Interpretation Comments Alb BF Type (test Pleural *NA*(06/13/22 code = Alb BF Type) 10:00 AM) [facility]2022-07-25 15:00:00 Test Item Value Reference Range Interpretation Comments CellCnt BF Type (test Thoracen (06/13/22 10:00 code = CellCnt BF AM) Type) [facility]2022-07-25 15:00:00 Test Item Value Reference Range Interpretation Comments Color BF (test code = Yellow (06/13/22 10:00 Color BF) AM) [facility]2022-07-25 15:00:00 Test Item Value Reference Range Interpretation Comments Clarity BF (test code = Clear (06/13/22 10:00 Clarity BF) AM) [facility]2022-07-25 15:00:00 Test Item Value Reference Range Interpretation Comments Supernat BF (test code = Yellow *ABN*(06/13/22 Supernat BF) 10:00 AM) [facility]2022-07-25 15:00:00 Test Item Value Reference Range Interpretation Comments Nucleated Cells BF (test code = 273 Nucleated Cells BF) [facility]2022-07-25 15:00:00 Test Item Value Reference Range Interpretation Comments RBC BF (test code = RBC BF) 419 [facility]2022-07-25 15:00:00 Test Item Value Reference Range Interpretation Comments Neutrophils BF (test code = Neutrophils 10 BF) [facility]2022-07-25 15:00:00 Test Item Value Reference Range Interpretation Comments Lymph BF (test code = Lymph BF) 36 [facility]2022-07-25 15:00:00 Test Item Value Reference Range Interpretation Comments Macrophage BF (test code = Macrophage [address]) [facility]2022-07-25 15:00:00 Test Item Value Reference Range Interpretation Comments Meso BF (test code = Meso BF) 6 [facility]2022-07-25 15:00:00 Test Item Value Reference Range Interpretation Comments Comment BF (test Differential confirmed. code = Comment BF) mesothlial cells and mixed inflammation. performed by Dr. Rosendo Chapa [facility]2022-07-25 15:00:00 Test Item Value Reference Range Interpretation Comments Glucose BF (test code = Glucose BF) 154 [facility]2022-07-25 15:00:00 Test Item Value Reference Range Interpretation Comments Gluc BF Type (test Pleural *NA*(06/13/22 code = Gluc BF Type) 10:00 AM) [facility]2022-07-25 15:00:00 Test Item Value Reference Range Interpretation Comments LDH BF (test code = LDH BF) 74 [facility]2022-07-25 15:00:00 Test Item Value Reference Range Interpretation Comments LDH BF Type (test Pleural *NA*(06/13/22 code = LDH BF Type) 10:00 AM) [facility]2022-07-25 15:00:00 Test Item Value Reference Range Interpretation Comments pH BF Type (test code Pleural (06/13/22 10:00 = pH BF Type) AM) [facility]2022-07-25 15:00:00 Test Item Value Reference Range Interpretation Comments pH BF (test code = pH BF) 8.[address] [facility] [id number] 15:00:00 Test Item Value Reference Range Interpretation Comments Protein BF (test code = Protein BF) 1.0 [facility]2022-07-25 15:00:00 Test Item Value Reference Range Interpretation Comments Prot BF Type (test Pleural *NA*(06/13/22 code = Prot BF Type) 10:00 AM) [facility] [id number] 15:00:00 Test Item Value Reference Range Interpretation Comments Gram Stain Report Few WBC's No Organisms (test code = Gram Seen Stain Report) [facility] Aspirate/Body Fluid/[id number] 15:00:00 Test Item Value Reference Range Interpretation Comments Culture: Aspirate/Body Fluid/Tissue No Growth (test code = Culture: Aspirate/Body Fluid/Tissue) [facility]2022-07-25 15:00:00 Test Item Value Reference Range Interpretation Comments Albumin BF (test code = Albumin BF) 0.6 [facility]2022-07-25 15:00:00 Test Item Value Reference Range Interpretation Comments Alb BF Type (test Pleural *NA*(06/13/22 code = Alb BF Type) 10:00 AM) [facility]2022-07-25 15:00:00 Test Item Value Reference Range Interpretation Comments CellCnt BF Type (test Thoracen (06/13/22 10:00 code = CellCnt BF AM) Type) [facility]2022-07-25 15:00:00 Test Item Value Reference Range Interpretation Comments Color BF (test code = Yellow (06/13/22 10:00 Color BF) AM) [facility]2022-07-25 15:00:00 Test Item Value Reference Range Interpretation Comments Clarity BF (test code = Clear (06/13/22 10:00 Clarity BF) AM) [facility]2022-07-25 15:00:00 Test Item Value Reference Range Interpretation Comments Supernat BF (test code = Yellow *ABN*(06/13/22 Supernat BF) 10:00 AM) [facility]2022-07-25 15:00:00 Test Item Value Reference Range Interpretation Comments Nucleated Cells BF (test code = 273 Nucleated Cells BF) [facility]2022-07-25 15:00:00 Test Item Value Reference Range Interpretation Comments RBC BF (test code = RBC BF) 419 [facility]2022-07-25 15:00:00 Test Item Value Reference Range Interpretation Comments Neutrophils BF (test code = Neutrophils 10 BF) [facility] [id number] 15:00:00 Test Item Value Reference Range Interpretation Comments Lymph BF (test code = Lymph BF) 36 [facility] [id number] 15:00:00 Test Item Value Reference Range Interpretation Comments Macrophage BF (test code = Macrophage 48 BF) [facility] [id number] 15:00:00 Test Item Value Reference Range Interpretation Comments Meso BF (test code = Meso BF) 6 [facility] [id number] 15:00:00 Test Item Value Reference Range Interpretation Comments Comment BF (test Differential confirmed. code = Comment BF) mesothlial cells and mixed inflammation. performed by Dr. Rosendo Chapa [facility] [id number] 15:00:00 Test Item Value Reference Range Interpretation Comments Glucose BF (test code = Glucose BF) 154 [facility] [id number] 15:00:00 Test Item Value Reference Range Interpretation Comments Gluc BF Type (test Pleural *NA*(06/13/22 code = Gluc BF Type) 10:00 AM) [facility] [id number] 15:00:00 Test Item Value Reference Range Interpretation Comments LDH BF (test code = LDH BF) 74 [facility] [id number] 15:00:00 Test Item Value Reference Range Interpretation Comments LDH BF Type (test Pleural *NA*(06/13/22 code = LDH BF Type) 10:00 AM) [facility] [id number] 15:00:00 Test Item Value Reference Range Interpretation Comments pH BF Type (test code Pleural (06/13/22 10:00 = pH BF Type) AM) [facility] [id number] 15:00:00 Test Item Value Reference Range Interpretation Comments pH BF (test code = pH BF) 8.00 1 [facility] TexasMelodigramBODY [id number] 15:00:00 Test Item Value Reference Range Interpretation Comments Protein BF (test code = Protein BF) 1.0 [facility] [id number] 15:00:00 Test Item Value Reference Range Interpretation Comments Prot BF Type (test Pleural *NA*(06/13/22 code = Prot BF Type) 10:00 AM) [facility]Melod[facility]ramG[facility] Stain [id number] 15:00:00 Test Item Value Reference Range Interpretation Comments Gram Stain Report Few WBC's No Organisms (test code = Gram Seen Stain Report) [facility] Aspirate/Body Fluid/[id number] 15:00:00 Test Item Value Reference Range Interpretation Comments Culture: Aspirate/Body Fluid/Tissue No Growth (test code = Culture: Aspirate/Body Fluid/Tissue) [facility]2022-07-25 15:00:00 Test Item Value Reference Range Interpretation Comments Albumin BF (test code = Albumin BF) 0.6 [facility]2022-07-25 15:00:00 Test Item Value Reference Range Interpretation Comments Alb BF Type (test Pleural *NA*(06/13/22 code = Alb BF Type) 10:00 AM) [facility]2022-07-25 15:00:00 Test Item Value Reference Range Interpretation Comments CellCnt BF Type (test Thoracen (06/13/22 10:00 code = CellCnt BF AM) Type) [facility]2022-07-25 15:00:00 Test Item Value Reference Range Interpretation Comments Color BF (test code = Yellow (06/13/22 10:00 Color BF) AM) [facility]2022-07-25 15:00:00 Test Item Value Reference Range Interpretation Comments Clarity BF (test code = Clear (06/13/22 10:00 Clarity BF) AM) [facility]2022-07-25 15:00:00 Test Item Value Reference Range Interpretation Comments Supernat BF (test code = Yellow *ABN*(06/13/22 Supernat BF) 10:00 AM) [facility]2022-07-25 15:00:00 Test Item Value Reference Range Interpretation Comments Nucleated Cells BF (test code = 273 Nucleated Cells BF) [facility]2022-07-25 15:00:00 Test Item Value Reference Range Interpretation Comments RBC BF (test code = RBC BF) 419 [facility]2022-07-25 15:00:00 Test Item Value Reference Range Interpretation Comments Neutrophils BF (test code = Neutrophils [address]) [facility]2022-07-25 15:00:00 Test Item Value Reference Range Interpretation Comments Lymph BF (test code = Lymph BF) 36 [facility]2022-07-25 15:00:00 Test Item Value Reference Range Interpretation Comments Macrophage BF (test code = Macrophage [address]) [facility] [id number] 15:00:00 Test Item Value Reference Range Interpretation Comments Meso BF (test code = Meso BF) 6 [facility]2022-07-25 15:00:00 Test Item Value Reference Range Interpretation Comments Comment BF (test Differential confirmed. code = Comment BF) mesothlial cells and mixed inflammation. performed by Dr. Rosendo Chapa [facility] [id number] 15:00:00 Test Item Value Reference Range Interpretation Comments Glucose BF (test code = Glucose BF) 154 [facility] [id number] 15:00:00 Test Item Value Reference Range Interpretation Comments Gluc BF Type (test Pleural *NA*(06/13/22 code = Gluc BF Type) 10:00 AM) [facility]2022-07-25 15:00:00 Test Item Value Reference Range Interpretation Comments LDH BF (test code = LDH BF) 74 [facility]2022-07-25 15:00:00 Test Item Value Reference Range Interpretation Comments LDH BF Type (test Pleural *NA*(06/13/22 code = LDH BF Type) 10:00 AM) [facility] [id number] 15:00:00 Test Item Value Reference Range Interpretation Comments pH BF Type (test code Pleural (06/13/22 10:00 = pH BF Type) AM) [facility] [id number] 15:00:00 Test Item Value Reference Range Interpretation Comments pH BF (test code = pH BF) 8.[address] [facility] [id number] 15:00:00 Test Item Value Reference Range Interpretation Comments Protein BF (test code = Protein BF) 1.0 [facility] [id number] 15:00:00 Test Item Value Reference Range Interpretation Comments Prot BF Type (test Pleural *NA*(06/13/22 code = Prot BF Type) 10:00 AM) [facility] [id number] 15:00:00 Test Item Value Reference Range Interpretation Comments Gram Stain Report Few WBC's No Organisms (test code = Gram Seen Stain Report) [facility]: Aspirate/Body Fluid/[id number] 15:00:00 Test Item Value Reference Range Interpretation Comments Culture: Aspirate/Body Fluid/Tissue No Growth (test code = Culture: Aspirate/Body Fluid/Tissue) [facility]2022-07-25 15:00:00 Test Item Value Reference Range Interpretation Comments Albumin BF (test code = Albumin BF) 0.6 [facility]2022-07-25 15:00:00 Test Item Value Reference Range Interpretation Comments Alb BF Type (test Pleural *NA*(06/13/22 code = Alb BF Type) 10:00 AM) [facility]2022-07-25 15:00:00 Test Item Value Reference Range Interpretation Comments CellCnt BF Type (test Thoracen (06/13/22 10:00 code = CellCnt BF AM) Type) [facility]2022-07-25 15:00:00 Test Item Value Reference Range Interpretation Comments Color BF (test code = Yellow (06/13/22 10:00 Color BF) AM) [facility]2022-07-25 15:00:00 Test Item Value Reference Range Interpretation Comments Clarity BF (test code = Clear (06/13/22 10:00 Clarity BF) AM) [facility]2022-07-25 15:00:00 Test Item Value Reference Range Interpretation Comments Supernat BF (test code = Yellow *ABN*(06/13/22 Supernat BF) 10:00 AM) [facility]2022-07-25 15:00:00 Test Item Value Reference Range Interpretation Comments Nucleated Cells BF (test code = 273 Nucleated Cells BF) [facility]2022-07-25 15:00:00 Test Item Value Reference Range Interpretation Comments RBC BF (test code = RBC BF) 419 [facility]2022-07-25 15:00:00 Test Item Value Reference Range Interpretation Comments Neutrophils BF (test code = Neutrophils [address]) [facility]2022-07-25 15:00:00 Test Item Value Reference Range Interpretation Comments Lymph BF (test code = Lymph BF) 36 [facility]2022-07-25 15:00:00 Test Item Value Reference Range Interpretation Comments Macrophage BF (test code = Macrophage [address]) [facility]2022-07-25 15:00:00 Test Item Value Reference Range Interpretation Comments Meso BF (test code = Meso BF) 6 [facility] [id number] 15:00:00 Test Item Value Reference Range Interpretation Comments Comment BF (test Differential confirmed. code = Comment BF) mesothlial cells and mixed inflammation. performed by Dr. Rosendo Chapa [facility] [id number] 15:00:00 Test Item Value Reference Range Interpretation Comments Glucose BF (test code = Glucose BF) 154 [facility] [id number] 15:00:00 Test Item Value Reference Range Interpretation Comments Gluc BF Type (test Pleural *NA*(06/13/22 code = Gluc BF Type) 10:00 AM) [facility] [id number] 15:00:00 Test Item Value Reference Range Interpretation Comments LDH BF (test code = LDH BF) 74 [facility]2022-07-25 15:00:00 Test Item Value Reference Range Interpretation Comments LDH BF Type (test Pleural *NA*(06/13/22 code = LDH BF Type) 10:00 AM) [facility] [id number] 15:00:00 Test Item Value Reference Range Interpretation Comments pH BF Type (test code Pleural (06/13/22 10:00 = pH BF Type) AM) [facility]2022-07-25 15:00:00 Test Item Value Reference Range Interpretation Comments pH BF (test code = pH BF) 8.[address] [facility] [id number] 15:00:00 Test Item Value Reference Range Interpretation Comments Protein BF (test code = Protein BF) 1.0 [facility] [id number] 15:00:00 Test Item Value Reference Range Interpretation Comments Prot BF Type (test Pleural *NA*(06/13/22 code = Prot BF Type) 10:00 AM) [facility] [id number] 15:00:00 Test Item Value Reference Range Interpretation Comments Gram Stain Report Few WBC's No Organisms (test code = Gram Seen Stain Report) [facility] Aspirate/Body Fluid/[id number] 15:00:00 Test Item Value Reference Range Interpretation Comments Culture: Aspirate/Body Fluid/Tissue No Growth (test code = Culture: Aspirate/Body Fluid/Tissue) [facility]2022-07-25 15:00:00 Test Item Value Reference Range Interpretation Comments Albumin BF (test code = Albumin BF) 0.6 [facility]2022-07-25 15:00:00 Test Item Value Reference Range Interpretation Comments Alb BF Type (test Pleural *NA*(06/13/22 code = Alb BF Type) 10:00 AM) [facility]2022-07-25 15:00:00 Test Item Value Reference Range Interpretation Comments CellCnt BF Type (test Thoracen (06/13/22 10:00 code = CellCnt BF AM) Type) [facility]2022-07-25 15:00:00 Test Item Value Reference Range Interpretation Comments Color BF (test code = Yellow (06/13/22 10:00 Color BF) AM) [facility]2022-07-25 15:00:00 Test Item Value Reference Range Interpretation Comments Clarity BF (test code = Clear (06/13/22 10:00 Clarity BF) AM) [facility]2022-07-25 15:00:00 Test Item Value Reference Range Interpretation Comments Supernat BF (test code = Yellow *ABN*(06/13/22 Supernat BF) 10:00 AM) [facility]2022-07-25 15:00:00 Test Item Value Reference Range Interpretation Comments Nucleated Cells BF (test code = 273 Nucleated Cells BF) [facility]2022-07-25 15:00:00 Test Item Value Reference Range Interpretation Comments RBC BF (test code = RBC BF) 419 [facility]2022-07-25 15:00:00 Test Item Value Reference Range Interpretation Comments Neutrophils BF (test code = Neutrophils 10 BF) [facility]2022-07-25 15:00:00 Test Item Value Reference Range Interpretation Comments Lymph BF (test code = Lymph BF) 36 [facility]2022-07-25 15:00:00 Test Item Value Reference Range Interpretation Comments Macrophage BF (test code = Macrophage 48 [address]) [facility]2022-07-25 15:00:00 Test Item Value Reference Range Interpretation Comments Meso BF (test code = Meso BF) 6 [facility]2022-07-25 15:00:00 Test Item Value Reference Range Interpretation Comments Comment BF (test Differential confirmed. code = Comment BF) mesothlial cells and mixed inflammation. performed by Dr. Rosendo Chapa [facility] [id number] 15:00:00 Test Item Value Reference Range Interpretation Comments Glucose BF (test code = Glucose BF) 154 [facility] [id number] 15:00:00 Test Item Value Reference Range Interpretation Comments Gluc BF Type (test Pleural *NA*(06/13/22 code = Gluc BF Type) 10:00 AM) [facility]2022-07-25 15:00:00 Test Item Value Reference Range Interpretation Comments LDH BF (test code = LDH BF) 74 [facility] [id number] 15:00:00 Test Item Value Reference Range Interpretation Comments LDH BF Type (test Pleural *NA*(06/13/22 code = LDH BF Type) 10:00 AM) [facility]2022-07-25 15:00:00 Test Item Value Reference Range Interpretation Comments pH BF Type (test code Pleural (06/13/22 10:00 = pH BF Type) AM) [facility]2022-07-25 15:00:00 Test Item Value Reference Range Interpretation Comments pH BF (test code = pH BF) 8.[address] [facility]2022-07-25 15:00:00 Test Item Value Reference Range Interpretation Comments Protein BF (test code = Protein BF) 1.0 [facility]2022-07-25 15:00:00 Test Item Value Reference Range Interpretation Comments Prot BF Type (test Pleural *NA*(06/13/22 code = Prot BF Type) 10:00 AM) [facility] [id number] 15:00:00 Test Item Value Reference Range Interpretation Comments Gram Stain Report Few WBC's No Organisms (test code = Gram Seen Stain Report) [facility] Aspirate/Body Fluid/[id number] 15:00:00 Test Item Value Reference Range Interpretation Comments Culture: Aspirate/Body Fluid/Tissue No Growth (test code = Culture: Aspirate/Body Fluid/Tissue) [facility]2022-07-25 15:00:00 Test Item Value Reference Range Interpretation Comments Albumin BF (test code = Albumin BF) 0.6 [facility]2022-07-25 15:00:00 Test Item Value Reference Range Interpretation Comments Alb BF Type (test Pleural *NA*(06/13/22 code = Alb BF Type) 10:00 AM) [facility]2022-07-25 15:00:00 Test Item Value Reference Range Interpretation Comments CellCnt BF Type (test Thoracen (06/13/22 10:00 code = CellCnt BF AM) Type) [facility]2022-07-25 15:00:00 Test Item Value Reference Range Interpretation Comments Color BF (test code = Yellow (06/13/22 10:00 Color BF) AM) [facility]2022-07-25 15:00:00 Test Item Value Reference Range Interpretation Comments Clarity BF (test code = Clear (06/13/22 10:00 Clarity BF) AM) [facility]2022-07-25 15:00:00 Test Item Value Reference Range Interpretation Comments Supernat BF (test code = Yellow *ABN*(06/13/22 Supernat BF) 10:00 AM) [facility]2022-07-25 15:00:00 Test Item Value Reference Range Interpretation Comments Nucleated Cells BF (test code = 273 Nucleated Cells BF) [facility]2022-07-25 15:00:00 Test Item Value Reference Range Interpretation Comments RBC BF (test code = RBC BF) 419 [facility]2022-07-25 15:00:00 Test Item Value Reference Range Interpretation Comments Neutrophils BF (test code = Neutrophils 10 BF) [facility]2022-07-25 15:00:00 Test Item Value Reference Range Interpretation Comments Lymph BF (test code = Lymph BF) 36 [facility]2022-07-25 15:00:00 Test Item Value Reference Range Interpretation Comments Macrophage BF (test code = Macrophage 48 [address]) [facility]2022-07-25 15:00:00 Test Item Value Reference Range Interpretation Comments Meso BF (test code = Meso BF) 6 [facility]2022-07-25 15:00:00 Test Item Value Reference Range Interpretation Comments Comment BF (test Differential confirmed. code = Comment BF) mesothlial cells and mixed inflammation. performed by Dr. Rosendo Chapa [facility]2022-07-25 15:00:00 Test Item Value Reference Range Interpretation Comments Glucose BF (test code = Glucose BF) 154 [facility]2022-07-25 15:00:00 Test Item Value Reference Range Interpretation Comments Gluc BF Type (test Pleural *NA*(06/13/22 code = Gluc BF Type) 10:00 AM) [facility] [id number] 15:00:00 Test Item Value Reference Range Interpretation Comments LDH BF (test code = LDH BF) 74 [facility] [id number] 15:00:00 Test Item Value Reference Range Interpretation Comments LDH BF Type (test Pleural *NA*(06/13/22 code = LDH BF Type) 10:00 AM) [facility] [id number] 15:00:00 Test Item Value Reference Range Interpretation Comments pH BF Type (test code Pleural (06/13/22 10:00 = pH BF Type) AM) [facility] [id number] 15:00:00 Test Item Value Reference Range Interpretation Comments pH BF (test code = pH BF) 8.[address] [facility] [id number] 15:00:00 Test Item Value Reference Range Interpretation Comments Protein BF (test code = Protein BF) 1.0 [facility] [id number] 15:00:00 Test Item Value Reference Range Interpretation Comments Prot BF Type (test Pleural *NA*(06/13/22 code = Prot BF Type) 10:00 AM) [facility] [id number] 15:00:00 Test Item Value Reference Range Interpretation Comments Gram Stain Report Few WBC's No Organisms (test code = Gram Seen Stain Report) [facility] Aspirate/Body Fluid/[id number] 15:00:00 Test Item Value Reference Range Interpretation Comments Culture: Aspirate/Body Fluid/Tissue No Growth (test code = Culture: Aspirate/Body Fluid/Tissue) [facility] [id number] 15:00:00 Test Item Value Reference Range Interpretation Comments Albumin BF (test code = Albumin BF) 0.6 [facility] [id number] 15:00:00 Test Item Value Reference Range Interpretation Comments Alb BF Type (test Pleural *NA*(06/13/22 code = Alb BF Type) 10:00 AM) [facility] [id number] 15:00:00 Test Item Value Reference Range Interpretation Comments CellCnt BF Type (test Thoracen (06/13/22 10:00 code = CellCnt BF AM) Type) [facility]2022-07-25 15:00:00 Test Item Value Reference Range Interpretation Comments Color BF (test code = Yellow (06/13/22 10:00 Color BF) AM) [facility]2022-07-25 15:00:00 Test Item Value Reference Range Interpretation Comments Clarity BF (test code = Clear (06/13/22 10:00 Clarity BF) AM) [facility]2022-07-25 15:00:00 Test Item Value Reference Range Interpretation Comments Supernat BF (test code = Yellow *ABN*(06/13/22 Supernat BF) 10:00 AM) [facility]2022-07-25 15:00:00 Test Item Value Reference Range Interpretation Comments Nucleated Cells BF (test code = 273 Nucleated Cells BF) [facility]2022-07-25 15:00:00 Test Item Value Reference Range Interpretation Comments RBC BF (test code = RBC BF) 419 [facility]2022-07-25 15:00:00 Test Item Value Reference Range Interpretation Comments Neutrophils BF (test code = Neutrophils [address]) [facility]2022-07-25 15:00:00 Test Item Value Reference Range Interpretation Comments Lymph BF (test code = Lymph BF) 36 [facility]2022-07-25 15:00:00 Test Item Value Reference Range Interpretation Comments Macrophage BF (test code = Macrophage 48 [address]) [facility]2022-07-25 15:00:00 Test Item Value Reference Range Interpretation Comments Meso BF (test code = Meso BF) 6 [facility]2022-07-25 15:00:00 Test Item Value Reference Range Interpretation Comments Comment BF (test Differential confirmed. code = Comment BF) mesothlial cells and mixed inflammation. performed by Dr. Rosendo Chapa [facility]2022-07-25 15:00:00 Test Item Value Reference Range Interpretation Comments Glucose BF (test code = Glucose BF) 154 [facility]2022-07-25 15:00:00 Test Item Value Reference Range Interpretation Comments Gluc BF Type (test Pleural *NA*(06/13/22 code = Gluc BF Type) 10:00 AM) [facility]2022-07-25 15:00:00 Test Item Value Reference Range Interpretation Comments LDH BF (test code = LDH BF) 74 [facility] [id number] 15:00:00 Test Item Value Reference Range Interpretation Comments LDH BF Type (test Pleural *NA*(06/13/22 code = LDH BF Type) 10:00 AM) [facility] [id number] 15:00:00 Test Item Value Reference Range Interpretation Comments pH BF Type (test code Pleural (06/13/22 10:00 = pH BF Type) AM) [facility] [id number] 15:00:00 Test Item Value Reference Range Interpretation Comments pH BF (test code = pH BF) 8.00 1 [facility] [id number] 15:00:00 Test Item Value Reference Range Interpretation Comments Protein BF (test code = Protein BF) 1.0 [facility] [id number] 15:00:00 Test Item Value Reference Range Interpretation Comments Prot BF Type (test Pleural *NA*(06/13/22 code = Prot BF Type) 10:00 AM) [facility] [id number] 15:00:00 Test Item Value Reference Range Interpretation Comments Gram Stain Report Few WBC's No Organisms (test code = Gram Seen Stain Report) [facility] Aspirate/Body Fluid/[id number] 15:00:00 Test Item Value Reference Range Interpretation Comments Culture: Aspirate/Body Fluid/Tissue No Growth (test code = Culture: Aspirate/Body Fluid/Tissue) [facility]2022-07-25 15:00:00 Test Item Value Reference Range Interpretation Comments Albumin BF (test code = Albumin BF) 0.6 [facility] [id number] 15:00:00 Test Item Value Reference Range Interpretation Comments Alb BF Type (test Pleural *NA*(06/13/22 code = Alb BF Type) 10:00 AM) [facility] [id number] 15:00:00 Test Item Value Reference Range Interpretation Comments CellCnt BF Type (test Thoracen (06/13/22 10:00 code = CellCnt BF AM) Type) [facility] [id number] 15:00:00 Test Item Value Reference Range Interpretation Comments Color BF (test code = Yellow (06/13/22 10:00 Color BF) AM) [facility]2022-07-25 15:00:00 Test Item Value Reference Range Interpretation Comments Clarity BF (test code = Clear (06/13/22 10:00 Clarity BF) AM) [facility]2022-07-25 15:00:00 Test Item Value Reference Range Interpretation Comments Supernat BF (test code = Yellow *ABN*(06/13/22 Supernat BF) 10:00 AM) [facility]2022-07-25 15:00:00 Test Item Value Reference Range Interpretation Comments Nucleated Cells BF (test code = 273 Nucleated Cells BF) [facility]2022-07-25 15:00:00 Test Item Value Reference Range Interpretation Comments RBC BF (test code = RBC BF) 419 [facility]2022-07-25 15:00:00 Test Item Value Reference Range Interpretation Comments Neutrophils BF (test code = Neutrophils 10 [address]) [facility]2022-07-25 15:00:00 Test Item Value Reference Range Interpretation Comments Lymph BF (test code = Lymph BF) 36 [facility]2022-07-25 15:00:00 Test Item Value Reference Range Interpretation Comments Macrophage BF (test code = Macrophage 48 [address]) [facility]2022-07-25 15:00:00 Test Item Value Reference Range Interpretation Comments Meso BF (test code = Meso BF) 6 [facility]2022-07-25 15:00:00 Test Item Value Reference Range Interpretation Comments Comment BF (test Differential confirmed. code = Comment BF) mesothlial cells and mixed inflammation. performed by Dr. Rosendo Chapa [facility]2022-07-25 15:00:00 Test Item Value Reference Range Interpretation Comments Glucose BF (test code = Glucose BF) 154 [facility]2022-07-25 15:00:00 Test Item Value Reference Range Interpretation Comments Gluc BF Type (test Pleural *NA*(06/13/22 code = Gluc BF Type) 10:00 AM) [facility]2022-07-25 15:00:00 Test Item Value Reference Range Interpretation Comments LDH BF (test code = LDH BF) 74 [facility]2022-07-25 15:00:00 Test Item Value Reference Range Interpretation Comments LDH BF Type (test Pleural *NA*(7/25/22 code = LDH BF Type) 10:00 AM) [facility] [id number] 15:00:00 Test Item Value Reference Range Interpretation Comments pH BF Type (test code Pleural (06/13/22 10:00 = pH BF Type) AM) [facility] [id number] 15:00:00 Test Item Value Reference Range Interpretation Comments pH BF (test code = pH BF) 8.00 1 [facility] [id number] 15:00:00 Test Item Value Reference Range Interpretation Comments Protein BF (test code = Protein BF) 1.0 [facility] [id number] 15:00:00 Test Item Value Reference Range Interpretation Comments Prot BF Type (test Pleural *NA*(06/13/22 code = Prot BF Type) 10:00 AM) [facility] [id number] 15:00:00 Test Item Value Reference Range Interpretation Comments Gram Stain Report Few WBC's No Organisms (test code = Gram Seen Stain Report) [facility] Aspirate/Body Fluid/[id number] 15:00:00 Test Item Value Reference Range Interpretation Comments Culture: Aspirate/Body Fluid/Tissue No Growth (test code = Culture: Aspirate/Body Fluid/Tissue) [facility] [id number] 15:00:00 Test Item Value Reference Range Interpretation Comments Albumin BF (test code = Albumin BF) 0.6 [facility] [id number] 15:00:00 Test Item Value Reference Range Interpretation Comments Alb BF Type (test Pleural *NA*(06/13/22 code = Alb BF Type) 10:00 AM) [facility] [id number] 15:00:00 Test Item Value Reference Range Interpretation Comments CellCnt BF Type (test Thoracen (06/13/22 10:00 code = CellCnt BF AM) Type) [facility] [id number] 15:00:00 Test Item Value Reference Range Interpretation Comments Color BF (test code = Yellow (06/13/22 10:00 Color BF) AM) [facility] [id number] 15:00:00 Test Item Value Reference Range Interpretation Comments Clarity BF (test code = Clear (06/13/22 10:00 Clarity BF) AM) [facility]2022-07-25 15:00:00 Test Item Value Reference Range Interpretation Comments Supernat BF (test code = Yellow *ABN*(06/13/22 Supernat BF) 10:00 AM) [facility]2022-07-25 15:00:00 Test Item Value Reference Range Interpretation Comments Nucleated Cells BF (test code = 273 Nucleated Cells BF) [facility]2022-07-25 15:00:00 Test Item Value Reference Range Interpretation Comments RBC BF (test code = RBC BF) 419 [facility]2022-07-25 15:00:00 Test Item Value Reference Range Interpretation Comments Neutrophils BF (test code = Neutrophils 10 [address]) [facility]2022-07-25 15:00:00 Test Item Value Reference Range Interpretation Comments Lymph BF (test code = Lymph BF) 36 [facility]2022-07-25 15:00:00 Test Item Value Reference Range Interpretation Comments Macrophage BF (test code = Macrophage [address]) [facility]2022-07-25 15:00:00 Test Item Value Reference Range Interpretation Comments Meso BF (test code = Meso BF) 6 [facility]2022-07-25 15:00:00 Test Item Value Reference Range Interpretation Comments Comment BF (test Differential confirmed. code = Comment BF) mesothlial cells and mixed inflammation. performed by Dr. Rosendo Chapa [facility]2022-07-25 15:00:00 Test Item Value Reference Range Interpretation Comments Glucose BF (test code = Glucose BF) 154 [facility]2022-07-25 15:00:00 Test Item Value Reference Range Interpretation Comments Gluc BF Type (test Pleural *NA*(06/13/22 code = Gluc BF Type) 10:00 AM) [facility]2022-07-25 15:00:00 Test Item Value Reference Range Interpretation Comments LDH BF (test code = LDH BF) 74 [facility]2022-07-25 15:00:00 Test Item Value Reference Range Interpretation Comments LDH BF Type (test Pleural *NA*(06/13/22 code = LDH BF Type) 10:00 AM) [facility]2022-07-25 15:00:00 Test Item Value Reference Range Interpretation Comments pH BF Type (test code Pleural (06/13/22 10:00 = pH BF Type) AM) [facility] [id number] 15:00:00 Test Item Value Reference Range Interpretation Comments pH BF (test code = pH BF) 8.00 1 [facility] [id number] 15:00:00 Test Item Value Reference Range Interpretation Comments Protein BF (test code = Protein BF) 1.0 [facility] [id number] 15:00:00 Test Item Value Reference Range Interpretation Comments Prot BF Type (test Pleural *NA*(06/13/22 code = Prot BF Type) 10:00 AM) [facility] [id number] 15:00:00 Test Item Value Reference Range Interpretation Comments Gram Stain Report Few WBC's No Organisms (test code = Gram Seen Stain Report) [facility] Aspirate/Body Fluid/[id number] 15:00:00 Test Item Value Reference Range Interpretation Comments Culture: Aspirate/Body Fluid/Tissue No Growth (test code = Culture: Aspirate/Body Fluid/Tissue) [facility] [id number] 15:00:00 Test Item Value Reference Range Interpretation Comments Albumin BF (test code = Albumin BF) 0.6 [facility] [id number] 15:00:00 Test Item Value Reference Range Interpretation Comments Alb BF Type (test Pleural *NA*(06/13/22 code = Alb BF Type) 10:00 AM) [facility] [id number] 15:00:00 Test Item Value Reference Range Interpretation Comments CellCnt BF Type (test Thoracen (06/13/22 10:00 code = CellCnt BF AM) Type) [facility] [id number] 15:00:00 Test Item Value Reference Range Interpretation Comments Color BF (test code = Yellow (06/13/22 10:00 Color BF) AM) [facility] [id number] 15:00:00 Test Item Value Reference Range Interpretation Comments Clarity BF (test code = Clear (06/13/22 10:00 Clarity BF) AM) [facility] [id number] 15:00:00 Test Item Value Reference Range Interpretation Comments Supernat BF (test code = Yellow *ABN*(06/13/22 Supernat BF) 10:00 AM) [facility]2022-07-25 15:00:00 Test Item Value Reference Range Interpretation Comments Nucleated Cells BF (test code = 273 Nucleated Cells BF) [facility]2022-07-25 15:00:00 Test Item Value Reference Range Interpretation Comments RBC BF (test code = RBC BF) 419 [facility]2022-07-25 15:00:00 Test Item Value Reference Range Interpretation Comments Neutrophils BF (test code = Neutrophils 10 [address]) [facility]2022-07-25 15:00:00 Test Item Value Reference Range Interpretation Comments Lymph BF (test code = Lymph BF) 36 [facility]2022-07-25 15:00:00 Test Item Value Reference Range Interpretation Comments Macrophage BF (test code = Macrophage [address]) [facility]2022-07-25 15:00:00 Test Item Value Reference Range Interpretation Comments Meso BF (test code = Meso BF) 6 [facility]2022-07-25 15:00:00 Test Item Value Reference Range Interpretation Comments Comment BF (test Differential confirmed. code = Comment BF) mesothlial cells and mixed inflammation. performed by Dr. Rosendo Chapa [facility]2022-07-25 15:00:00 Test Item Value Reference Range Interpretation Comments Glucose BF (test code = Glucose BF) 154 [facility]2022-07-25 15:00:00 Test Item Value Reference Range Interpretation Comments Gluc BF Type (test Pleural *NA*(06/13/22 code = Gluc BF Type) 10:00 AM) [facility]2022-07-25 15:00:00 Test Item Value Reference Range Interpretation Comments LDH BF (test code = LDH BF) 74 [facility]2022-07-25 15:00:00 Test Item Value Reference Range Interpretation Comments LDH BF Type (test Pleural *NA*(06/13/22 code = LDH BF Type) 10:00 AM) [facility]2022-07-25 15:00:00 Test Item Value Reference Range Interpretation Comments pH BF Type (test code Pleural (06/13/22 10:00 = pH BF Type) AM) [facility]2022-07-25 15:00:00 Test Item Value Reference Range Interpretation Comments pH BF (test code = pH BF) 8.[address] [facility] [id number] 15:00:00 Test Item Value Reference Range Interpretation Comments Protein BF (test code = Protein BF) 1.0 [facility] [id number] 15:00:00 Test Item Value Reference Range Interpretation Comments Prot BF Type (test Pleural *NA*(06/13/22 code = Prot BF Type) 10:00 AM) [facility] [id number] 15:00:00 Test Item Value Reference Range Interpretation Comments Gram Stain Report Few WBC's No Organisms (test code = Gram Seen Stain Report) [facility]: Aspirate/Body Fluid/[id number] 15:00:00 Test Item Value Reference Range Interpretation Comments Culture: Aspirate/Body Fluid/Tissue No Growth (test code = Culture: Aspirate/Body Fluid/Tissue) [facility]2022-07-25 15:00:00 Test Item Value Reference Range Interpretation Comments Albumin BF (test code = Albumin BF) 0.6 [facility]2022-07-25 15:00:00 Test Item Value Reference Range Interpretation Comments Alb BF Type (test Pleural *NA*(06/13/22 code = Alb BF Type) 10:00 AM) [facility]2022-07-25 15:00:00 Test Item Value Reference Range Interpretation Comments CellCnt BF Type (test Thoracen (06/13/22 10:00 code = CellCnt BF AM) Type) [facility]2022-07-25 15:00:00 Test Item Value Reference Range Interpretation Comments Color BF (test code = Yellow (06/13/22 10:00 Color BF) AM) [facility]2022-07-25 15:00:00 Test Item Value Reference Range Interpretation Comments Clarity BF (test code = Clear (06/13/22 10:00 Clarity BF) AM) [facility]2022-07-25 15:00:00 Test Item Value Reference Range Interpretation Comments Supernat BF (test code = Yellow *ABN*(06/13/22 Supernat BF) 10:00 AM) [facility]2022-07-25 15:00:00 Test Item Value Reference Range Interpretation Comments Nucleated Cells BF (test code = 273 Nucleated Cells BF) [facility]2022-07-25 15:00:00 Test Item Value Reference Range Interpretation Comments RBC BF (test code = RBC BF) 419 [facility]2022-07-25 15:00:00 Test Item Value Reference Range Interpretation Comments Neutrophils BF (test code = Neutrophils 10 BF) [facility]2022-07-25 15:00:00 Test Item Value Reference Range Interpretation Comments Lymph BF (test code = Lymph BF) 36 [facility]2022-07-25 15:00:00 Test Item Value Reference Range Interpretation Comments Macrophage BF (test code = Macrophage 48 BF) [facility]2022-07-25 15:00:00 Test Item Value Reference Range Interpretation Comments Meso BF (test code = Meso BF) 6 [facility]2022-07-25 15:00:00 Test Item Value Reference Range Interpretation Comments Comment BF (test Differential confirmed. code = Comment BF) mesothlial cells and mixed inflammation. performed by Dr. Rosendo Chapa [facility]2022-07-25 15:00:00 Test Item Value Reference Range Interpretation Comments Glucose BF (test code = Glucose BF) 154 [facility]2022-07-25 15:00:00 Test Item Value Reference Range Interpretation Comments Gluc BF Type (test Pleural *NA*(06/13/22 code = Gluc BF Type) 10:00 AM) [facility]2022-07-25 15:00:00 Test Item Value Reference Range Interpretation Comments LDH BF (test code = LDH BF) 74 [facility]2022-07-25 15:00:00 Test Item Value Reference Range Interpretation Comments LDH BF Type (test Pleural *NA*(06/13/22 code = LDH BF Type) 10:00 AM) [facility]2022-07-25 15:00:00 Test Item Value Reference Range Interpretation Comments pH BF Type (test code Pleural (06/13/22 10:00 = pH BF Type) AM) [facility]2022-07-25 15:00:00 Test Item Value Reference Range Interpretation Comments pH BF (test code = pH BF) 8.[address] [facility]2022-07-25 15:00:00 Test Item Value Reference Range Interpretation Comments Protein BF (test code = Protein BF) 1.0 [facility]2022-07-25 15:00:00 Test Item Value Reference Range Interpretation Comments Prot BF Type (test Pleural *NA*(06/13/22 code = Prot BF Type) 10:00 AM) [facility] [id number] 15:00:00 Test Item Value Reference Range Interpretation Comments Gram Stain Report Few WBC's No Organisms (test code = Gram Seen Stain Report) [facility]ville[facility]: Aspirate/Body Fluid/[id number] 15:00:00 Test Item Value Reference Range Interpretation Comments Culture: Aspirate/Body Fluid/Tissue No Growth (test code = Culture: Aspirate/Body Fluid/Tissue) [facility] [id number] 15:00:00 Test Item Value Reference Range Interpretation Comments Albumin BF (test code = Albumin BF) 0.6 [facility]2022-07-25 15:00:00 Test Item Value Reference Range Interpretation Comments Alb BF Type (test Pleural *NA*(06/13/22 code = Alb BF Type) 10:00 AM) [facility]2022-07-25 15:00:00 Test Item Value Reference Range Interpretation Comments CellCnt BF Type (test Thoracen (06/13/22 10:00 code = CellCnt BF AM) Type) [facility]2022-07-25 15:00:00 Test Item Value Reference Range Interpretation Comments Color BF (test code = Yellow (06/13/22 10:00 Color BF) AM) [facility]2022-07-25 15:00:00 Test Item Value Reference Range Interpretation Comments Clarity BF (test code = Clear (06/13/22 10:00 Clarity BF) AM) [facility]2022-07-25 15:00:00 Test Item Value Reference Range Interpretation Comments Supernat BF (test code = Yellow *ABN*(06/13/22 Supernat BF) 10:00 AM) [facility]2022-07-25 15:00:00 Test Item Value Reference Range Interpretation Comments Nucleated Cells BF (test code = 273 Nucleated Cells BF) [facility]2022-07-25 15:00:00 Test Item Value Reference Range Interpretation Comments RBC BF (test code = RBC BF) 419 [facility]2022-07-25 15:00:00 Test Item Value Reference Range Interpretation Comments Neutrophils BF (test code = Neutrophils 10 BF) [facility] [id number] 15:00:00 Test Item Value Reference Range Interpretation Comments Lymph BF (test code = Lymph BF) 36 [facility] [id number] 15:00:00 Test Item Value Reference Range Interpretation Comments Macrophage BF (test code = Macrophage 48 BF) [facility] [id number] 15:00:00 Test Item Value Reference Range Interpretation Comments Meso BF (test code = Meso BF) 6 [facility]ville[facility] [id number] 15:00:00 Test Item Value Reference Range Interpretation Comments Comment BF (test Differential confirmed. code = Comment BF) mesothlial cells and mixed inflammation. performed by Dr. Rosendo Chapa [facility] [id number] 15:00:00 Test Item Value Reference Range Interpretation Comments Glucose BF (test code = Glucose BF) 154 [facility] [id number] 15:00:00 Test Item Value Reference Range Interpretation Comments Gluc BF Type (test Pleural *NA*(06/13/22 code = Gluc BF Type) 10:00 AM) [facility] [id number] 15:00:00 Test Item Value Reference Range Interpretation Comments LDH BF (test code = LDH BF) 74 [facility] [id number] 15:00:00 Test Item Value Reference Range Interpretation Comments LDH BF Type (test Pleural *NA*(06/13/22 code = LDH BF Type) 10:00 AM) [facility] TexasMelodigramBODY [id number] 15:00:00 Test Item Value Reference Range Interpretation Comments pH BF Type (test code Pleural (06/13/22 10:00 = pH BF Type) AM) [facility] [id number] 15:00:00 Test Item Value Reference Range Interpretation Comments pH BF (test code = pH BF) 8.00 1 [facility] TexasMelodigramBODY [id number] 15:00:00 Test Item Value Reference Range Interpretation Comments Protein BF (test code = Protein BF) 1.0 [facility] TexasMelodigramBODY [id number] 15:00:00 Test Item Value Reference Range Interpretation Comments Prot BF Type (test Pleural *NA*(06/13/22 code = Prot BF Type) 10:00 AM) [facility] [id number] 15:00:00 Test Item Value Reference Range Interpretation Comments Gram Stain Report Few WBC's No Organisms (test code = Gram Seen Stain Report) [facility]ville[facility]: Aspirate/Body Fluid/[id number] 15:00:00 Test Item Value Reference Range Interpretation Comments Culture: Aspirate/Body Fluid/Tissue No Growth (test code = Culture: Aspirate/Body Fluid/Tissue) [facility]2022-07-25 15:00:00 Test Item Value Reference Range Interpretation Comments Albumin BF (test code = Albumin BF) 0.6 [facility]2022-07-25 15:00:00 Test Item Value Reference Range Interpretation Comments Alb BF Type (test Pleural *NA*(06/13/22 code = Alb BF Type) 10:00 AM) [facility]2022-07-25 15:00:00 Test Item Value Reference Range Interpretation Comments CellCnt BF Type (test Thoracen (06/13/22 10:00 code = CellCnt BF AM) Type) [facility]2022-07-25 15:00:00 Test Item Value Reference Range Interpretation Comments Color BF (test code = Yellow (06/13/22 10:00 Color BF) AM) [facility]2022-07-25 15:00:00 Test Item Value Reference Range Interpretation Comments Clarity BF (test code = Clear (06/13/22 10:00 Clarity BF) AM) [facility]2022-07-25 15:00:00 Test Item Value Reference Range Interpretation Comments Supernat BF (test code = Yellow *ABN*(06/13/22 Supernat BF) 10:00 AM) [facility]2022-07-25 15:00:00 Test Item Value Reference Range Interpretation Comments Nucleated Cells BF (test code = 273 Nucleated Cells BF) [facility]2022-07-25 15:00:00 Test Item Value Reference Range Interpretation Comments RBC BF (test code = RBC BF) 419 [facility]2022-07-25 15:00:00 Test Item Value Reference Range Interpretation Comments Neutrophils BF (test code = Neutrophils 10 [address]) [facility]2022-07-25 15:00:00 Test Item Value Reference Range Interpretation Comments Lymph BF (test code = Lymph BF) 36 [facility]2022-07-25 15:00:00 Test Item Value Reference Range Interpretation Comments Macrophage BF (test code = Macrophage [address]) [facility] [id number] 15:00:00 Test Item Value Reference Range Interpretation Comments Meso BF (test code = Meso BF) 6 [facility]2022-07-25 15:00:00 Test Item Value Reference Range Interpretation Comments Comment BF (test Differential confirmed. code = Comment BF) mesothlial cells and mixed inflammation. performed by Dr. Rosendo Chapa [facility] [id number] 15:00:00 Test Item Value Reference Range Interpretation Comments Glucose BF (test code = Glucose BF) 154 [facility] [id number] 15:00:00 Test Item Value Reference Range Interpretation Comments Gluc BF Type (test Pleural *NA*(06/13/22 code = Gluc BF Type) 10:00 AM) [facility] [id number] 15:00:00 Test Item Value Reference Range Interpretation Comments LDH BF (test code = LDH BF) 74 [facility] [id number] 15:00:00 Test Item Value Reference Range Interpretation Comments LDH BF Type (test Pleural *NA*(06/13/22 code = LDH BF Type) 10:00 AM) [facility] [id number] 15:00:00 Test Item Value Reference Range Interpretation Comments pH BF Type (test code Pleural (06/13/22 10:00 = pH BF Type) AM) [facility]2022-07-25 15:00:00 Test Item Value Reference Range Interpretation Comments pH BF (test code = pH BF) 8.[address] [facility] [id number] 15:00:00 Test Item Value Reference Range Interpretation Comments Protein BF (test code = Protein BF) 1.0 [facility] [id number] 15:00:00 Test Item Value Reference Range Interpretation Comments Prot BF Type (test Pleural *NA*(06/13/22 code = Prot BF Type) 10:00 AM) [facility] [id number] 15:00:00 Test Item Value Reference Range Interpretation Comments Gram Stain Report Few WBC's No Organisms (test code = Gram Seen Stain Report) [facility] Aspirate/Body Fluid/[id number] 15:00:00 Test Item Value Reference Range Interpretation Comments Culture: Aspirate/Body Fluid/Tissue No Growth (test code = Culture: Aspirate/Body Fluid/Tissue) [facility]2022-07-25 15:00:00 Test Item Value Reference Range Interpretation Comments Albumin BF (test code = Albumin BF) 0.6 [facility]2022-07-25 15:00:00 Test Item Value Reference Range Interpretation Comments Alb BF Type (test Pleural *NA*(06/13/22 code = Alb BF Type) 10:00 AM) [facility]2022-07-25 15:00:00 Test Item Value Reference Range Interpretation Comments CellCnt BF Type (test Thoracen (06/13/22 10:00 code = CellCnt BF AM) Type) [facility]2022-07-25 15:00:00 Test Item Value Reference Range Interpretation Comments Color BF (test code = Yellow (06/13/22 10:00 Color BF) AM) [facility]2022-07-25 15:00:00 Test Item Value Reference Range Interpretation Comments Clarity BF (test code = Clear (06/13/22 10:00 Clarity BF) AM) [facility]2022-07-25 15:00:00 Test Item Value Reference Range Interpretation Comments Supernat BF (test code = Yellow *ABN*(06/13/22 Supernat BF) 10:00 AM) [facility]2022-07-25 15:00:00 Test Item Value Reference Range Interpretation Comments Nucleated Cells BF (test code = 273 Nucleated Cells BF) [facility]2022-07-25 15:00:00 Test Item Value Reference Range Interpretation Comments RBC BF (test code = RBC BF) 419 [facility]2022-07-25 15:00:00 Test Item Value Reference Range Interpretation Comments Neutrophils BF (test code = Neutrophils [address]) [facility]2022-07-25 15:00:00 Test Item Value Reference Range Interpretation Comments Lymph BF (test code = Lymph BF) 36 [facility]2022-07-25 15:00:00 Test Item Value Reference Range Interpretation Comments Macrophage BF (test code = Macrophage 48 [address]) [facility]2022-07-25 15:00:00 Test Item Value Reference Range Interpretation Comments Meso BF (test code = Meso BF) 6 [facility]2022-07-25 15:00:00 Test Item Value Reference Range Interpretation Comments Comment BF (test Differential confirmed. code = Comment BF) mesothlial cells and mixed inflammation. performed by Dr. Rosendo Chapa [facility]2022-07-25 15:00:00 Test Item Value Reference Range Interpretation Comments Glucose BF (test code = Glucose BF) 154 [facility] [id number] 15:00:00 Test Item Value Reference Range Interpretation Comments Gluc BF Type (test Pleural *NA*(06/13/22 code = Gluc BF Type) 10:00 AM) [facility] [id number] 15:00:00 Test Item Value Reference Range Interpretation Comments LDH BF (test code = LDH BF) 74 [facility]2022-07-25 15:00:00 Test Item Value Reference Range Interpretation Comments LDH BF Type (test Pleural *NA*(06/13/22 code = LDH BF Type) 10:00 AM) [facility]2022-07-25 15:00:00 Test Item Value Reference Range Interpretation Comments pH BF Type (test code Pleural (06/13/22 10:00 = pH BF Type) AM) [facility]2022-07-25 15:00:00 Test Item Value Reference Range Interpretation Comments pH BF (test code = pH BF) 8.[address] [facility]2022-07-25 15:00:00 Test Item Value Reference Range Interpretation Comments Protein BF (test code = Protein BF) 1.0 [facility]2022-07-25 15:00:00 Test Item Value Reference Range Interpretation Comments Prot BF Type (test Pleural *NA*(06/13/22 code = Prot BF Type) 10:00 AM) [facility] [id number] 15:00:00 Test Item Value Reference Range Interpretation Comments Gram Stain Report Few WBC's No Organisms (test code = Gram Seen Stain Report) [facility] Aspirate/Body Fluid/[id number] 15:00:00 Test Item Value Reference Range Interpretation Comments Culture: Aspirate/Body Fluid/Tissue No Growth (test code = Culture: Aspirate/Body Fluid/Tissue) [facility] [id number] 15:00:00 Test Item Value Reference Range Interpretation Comments Albumin BF (test code = Albumin BF) 0.6 [facility] [id number] 15:00:00 Test Item Value Reference Range Interpretation Comments Alb BF Type (test Pleural *NA*(06/13/22 code = Alb BF Type) 10:00 AM) [facility] [id number] 15:00:00 Test Item Value Reference Range Interpretation Comments CellCnt BF Type (test Thoracen (06/13/22 10:00 code = CellCnt BF AM) Type) [facility] [id number] 15:00:00 Test Item Value Reference Range Interpretation Comments Color BF (test code = Yellow (06/13/22 10:00 Color BF) AM) [facility] [id number] 15:00:00 Test Item Value Reference Range Interpretation Comments Clarity BF (test code = Clear (06/13/22 10:00 Clarity BF) AM) [facility] [id number] 15:00:00 Test Item Value Reference Range Interpretation Comments Supernat BF (test code = Yellow *ABN*(06/13/22 Supernat BF) 10:00 AM) [facility] [id number] 15:00:00 Test Item Value Reference Range Interpretation Comments Nucleated Cells BF (test code = 273 Nucleated Cells BF) [facility] [id number] 15:00:00 Test Item Value Reference Range Interpretation Comments RBC BF (test code = RBC BF) 419 [facility] [id number] 15:00:00 Test Item Value Reference Range Interpretation Comments Neutrophils BF (test code = Neutrophils 10 [address]) [facility] [id number] 15:00:00 Test Item Value Reference Range Interpretation Comments Lymph BF (test code = Lymph BF) 36 [facility] [id number] 15:00:00 Test Item Value Reference Range Interpretation Comments Macrophage BF (test code = Macrophage 48 [address]) [facility] [id number] 15:00:00 Test Item Value Reference Range Interpretation Comments Meso BF (test code = Meso BF) 6 [facility] [id number] 15:00:00 Test Item Value Reference Range Interpretation Comments Comment BF (test Differential confirmed. code = Comment BF) mesothlial cells and mixed inflammation. performed by Dr. Rosendo Chapa [facility] [id number] 15:00:00 Test Item Value Reference Range Interpretation Comments Glucose BF (test code = Glucose BF) 154 [facility] [id number] 15:00:00 Test Item Value Reference Range Interpretation Comments Gluc BF Type (test Pleural *NA*(06/13/22 code = Gluc BF Type) 10:00 AM) [facility] [id number] 15:00:00 Test Item Value Reference Range Interpretation Comments LDH BF (test code = LDH BF) 74 [facility] [id number] 15:00:00 Test Item Value Reference Range Interpretation Comments LDH BF Type (test Pleural *NA*(06/13/22 code = LDH BF Type) 10:00 AM) [facility]2022-07-25 15:00:00 Test Item Value Reference Range Interpretation Comments pH BF Type (test code Pleural (06/13/22 10:00 = pH BF Type) AM) [facility]2022-07-25 15:00:00 Test Item Value Reference Range Interpretation Comments pH BF (test code = pH BF) 8.[address] [facility] [id number] 15:00:00 Test Item Value Reference Range Interpretation Comments Protein BF (test code = Protein BF) 1.0 [facility]2022-07-25 15:00:00 Test Item Value Reference Range Interpretation Comments Prot BF Type (test Pleural *NA*(06/13/22 code = Prot BF Type) 10:00 AM) [facility] [id number] 15:00:00 Test Item Value Reference Range Interpretation Comments Gram Stain Report Few WBC's No Organisms (test code = Gram Seen Stain Report) [facility] Aspirate/Body Fluid/[id number] 15:00:00 Test Item Value Reference Range Interpretation Comments Culture: Aspirate/Body Fluid/Tissue No Growth (test code = Culture: Aspirate/Body Fluid/Tissue) [facility] [id number] 15:00:00 Test Item Value Reference Range Interpretation Comments Albumin BF (test code = Albumin BF) 0.6 [facility]2022-07-25 15:00:00 Test Item Value Reference Range Interpretation Comments Alb BF Type (test Pleural *NA*(06/13/22 code = Alb BF Type) 10:00 AM) [facility]2022-07-25 15:00:00 Test Item Value Reference Range Interpretation Comments CellCnt BF Type (test Thoracen (06/13/22 10:00 code = CellCnt BF AM) Type) [facility]2022-07-25 15:00:00 Test Item Value Reference Range Interpretation Comments Color BF (test code = Yellow (06/13/22 10:00 Color BF) AM) [facility]2022-07-25 15:00:00 Test Item Value Reference Range Interpretation Comments Clarity BF (test code = Clear (06/13/22 10:00 Clarity BF) AM) [facility]2022-07-25 15:00:00 Test Item Value Reference Range Interpretation Comments Supernat BF (test code = Yellow *ABN*(06/13/22 Supernat BF) 10:00 AM) [facility]2022-07-25 15:00:00 Test Item Value Reference Range Interpretation Comments Nucleated Cells BF (test code = 273 Nucleated Cells BF) [facility]2022-07-25 15:00:00 Test Item Value Reference Range Interpretation Comments RBC BF (test code = RBC BF) 419 [facility]2022-07-25 15:00:00 Test Item Value Reference Range Interpretation Comments Neutrophils BF (test code = Neutrophils 10 BF) [facility]2022-07-25 15:00:00 Test Item Value Reference Range Interpretation Comments Lymph BF (test code = Lymph BF) 36 [facility]2022-07-25 15:00:00 Test Item Value Reference Range Interpretation Comments Macrophage BF (test code = Macrophage 48 BF) [facility]2022-07-25 15:00:00 Test Item Value Reference Range Interpretation Comments Meso BF (test code = Meso BF) 6 [facility]2022-07-25 15:00:00 Test Item Value Reference Range Interpretation Comments Comment BF (test Differential confirmed. code = Comment BF) mesothlial cells and mixed inflammation. performed by Dr. Rosendo Chapa [facility]2022-07-25 15:00:00 Test Item Value Reference Range Interpretation Comments Glucose BF (test code = Glucose BF) 154 [facility]2022-07-25 15:00:00 Test Item Value Reference Range Interpretation Comments Gluc BF Type (test Pleural *NA*(06/13/22 code = Gluc BF Type) 10:00 AM) [facility] [id number] 15:00:00 Test Item Value Reference Range Interpretation Comments LDH BF (test code = LDH BF) 74 [facility] [id number] 15:00:00 Test Item Value Reference Range Interpretation Comments LDH BF Type (test Pleural *NA*(06/13/22 code = LDH BF Type) 10:00 AM) [facility] [id number] 15:00:00 Test Item Value Reference Range Interpretation Comments pH BF Type (test code Pleural (06/13/22 10:00 = pH BF Type) AM) [facility] [id number] 15:00:00 Test Item Value Reference Range Interpretation Comments pH BF (test code = pH BF) 8.00 1 [facility] [id number] 15:00:00 Test Item Value Reference Range Interpretation Comments Protein BF (test code = Protein BF) 1.0 [facility] [id number] 15:00:00 Test Item Value Reference Range Interpretation Comments Prot BF Type (test Pleural *NA*(06/13/22 code = Prot BF Type) 10:00 AM) [facility] [id number] 15:00:00 Test Item Value Reference Range Interpretation Comments Gram Stain Report Few WBC's No Organisms (test code = Gram Seen Stain Report) [facility] Aspirate/Body Fluid/[id number] 15:00:00 Test Item Value Reference Range Interpretation Comments Culture: Aspirate/Body Fluid/Tissue No Growth (test code = Culture: Aspirate/Body Fluid/Tissue) [facility] [id number] 15:00:00 Test Item Value Reference Range Interpretation Comments Albumin BF (test code = Albumin BF) 0.6 [facility] [id number] 15:00:00 Test Item Value Reference Range Interpretation Comments Alb BF Type (test Pleural *NA*(06/13/22 code = Alb BF Type) 10:00 AM) [facility] [id number] 15:00:00 Test Item Value Reference Range Interpretation Comments CellCnt BF Type (test Thoracen (06/13/22 10:00 code = CellCnt BF AM) Type) [facility]2022-07-25 15:00:00 Test Item Value Reference Range Interpretation Comments Color BF (test code = Yellow (06/13/22 10:00 Color BF) AM) [facility]2022-07-25 15:00:00 Test Item Value Reference Range Interpretation Comments Clarity BF (test code = Clear (06/13/22 10:00 Clarity BF) AM) [facility]2022-07-25 15:00:00 Test Item Value Reference Range Interpretation Comments Supernat BF (test code = Yellow *ABN*(06/13/22 Supernat BF) 10:00 AM) [facility]2022-07-25 15:00:00 Test Item Value Reference Range Interpretation Comments Nucleated Cells BF (test code = 273 Nucleated Cells BF) [facility]2022-07-25 15:00:00 Test Item Value Reference Range Interpretation Comments RBC BF (test code = RBC BF) 419 [facility]2022-07-25 15:00:00 Test Item Value Reference Range Interpretation Comments Neutrophils BF (test code = Neutrophils 10 BF) [facility]2022-07-25 15:00:00 Test Item Value Reference Range Interpretation Comments Lymph BF (test code = Lymph BF) 36 [facility]2022-07-25 15:00:00 Test Item Value Reference Range Interpretation Comments Macrophage BF (test code = Macrophage 48 BF) [facility]2022-07-25 15:00:00 Test Item Value Reference Range Interpretation Comments Meso BF (test code = Meso BF) 6 [facility]2022-07-25 15:00:00 Test Item Value Reference Range Interpretation Comments Comment BF (test Differential confirmed. code = Comment BF) mesothlial cells and mixed inflammation. performed by Dr. Rosendo Chapa [facility]2022-07-25 15:00:00 Test Item Value Reference Range Interpretation Comments Glucose BF (test code = Glucose BF) 154 [facility]2022-07-25 15:00:00 Test Item Value Reference Range Interpretation Comments Gluc BF Type (test Pleural *NA*(06/13/22 code = Gluc BF Type) 10:00 AM) [facility]2022-07-25 15:00:00 Test Item Value Reference Range Interpretation Comments LDH BF (test code = LDH BF) 74 [facility] [id number] 15:00:00 Test Item Value Reference Range Interpretation Comments LDH BF Type (test Pleural *NA*(06/13/22 code = LDH BF Type) 10:00 AM) [facility] [id number] 15:00:00 Test Item Value Reference Range Interpretation Comments pH BF Type (test code Pleural (06/13/22 10:00 = pH BF Type) AM) [facility] [id number] 15:00:00 Test Item Value Reference Range Interpretation Comments pH BF (test code = pH BF) 8.00 1 [facility] [id number] 15:00:00 Test Item Value Reference Range Interpretation Comments Protein BF (test code = Protein BF) 1.0 [facility] [id number] 15:00:00 Test Item Value Reference Range Interpretation Comments Prot BF Type (test Pleural *NA*(06/13/22 code = Prot BF Type) 10:00 AM) [facility] [id number] 15:00:00 Test Item Value Reference Range Interpretation Comments Gram Stain Report Few WBC's No Organisms (test code = Gram Seen Stain Report) [facility]: Aspirate/Body Fluid/[id number] 15:00:00 Test Item Value Reference Range Interpretation Comments Culture: Aspirate/Body Fluid/Tissue No Growth (test code = Culture: Aspirate/Body Fluid/Tissue) [facility] [id number] 08:03:00 Test Item Value Reference Range Interpretation Comments HS Troponin I 1 Hr (test code = HS 50 Troponin I 1 Hr) [facility] [id number] 08:03:00 Test Item Value Reference Range Interpretation Comments HS Troponin I 0 to 1 See Note 5(06/13/22 Hour Delta (test code = 3:03 AM) HS Troponin I 0 to 1 Hour Delta) [facility] [employer]ayersannCHEM [id number] 08:03:00 Test Item Value Reference Range Interpretation Comments Glucose Lvl (test code = Glucose Lvl) 142 70-99 [facility]ayersannCHEM [id number] 08:03:00 Test Item Value Reference Range Interpretation Comments BUN (test code = BUN) 21 06-10 [facility]2022-07-25 08:03:00 Test Item Value Reference Range Interpretation Comments Creatinine Lvl (test code = Creatinine 0.84 0.50-1.40 Lvl) [facility]2022-07-25 08:03:00 Test Item Value Reference Range Interpretation Comments Sodium Lvl (test code = Sodium Lvl) 133 135-145 [place] [id number] 08:03:00 Test Item Value Reference Range Interpretation Comments Potassium Lvl (test code = Potassium 4.4 3.5-5.1 Lvl) [facility]2022-07-25 08:03:00 Test Item Value Reference Range Interpretation Comments Chloride Lvl (test code = Chloride Lvl) 98 95-109 [place] [id number] 08:03:00 Test Item Value Reference Range Interpretation Comments CO2 (test code = CO2) 24-32 [place] [id number] 08:03:00 Test Item Value Reference Range Interpretation Comments AGAP (test code = AGAP) 14.4 10.0-20.0 [place] [id number] 08:03:00 Test Item Value Reference Range Interpretation Comments Calcium Lvl (test code = Calcium Lvl) 9.1 8.5-10.5 [place] 852652-07-25 08:03:00 Test Item Value Reference Range Interpretation Comments B/C Ratio (test code = B/C Ratio) 25 1 6-25 [place] [id number] 08:03:00 Test Item Value Reference Range Interpretation Comments Total Protein (test code = Total 6.7 6.4-8.4 Protein) [facility]2022-07-25 08:03:00 Test Item Value Reference Range Interpretation Comments Albumin Lvl (test code = Albumin Lvl) 3.2 3.5-5.0 [place] [id number] 08:03:00 Test Item Value Reference Range Interpretation Comments Globulin (test code = Globulin) 3.5 2.7-4.2 [place] [id number] 08:03:00 Test Item Value Reference Range Interpretation Comments A/G Ratio (test code = A/G Ratio) 0.9 1 0.7-1.6 [place] 56[address]-07-25 08:03:00 Test Item Value Reference Range Interpretation Comments ALT (test code = ALT) 19 See_Comment [Auto mated message] The system which ge nerated this result transmit lavon reference range : <=65. The reference range was not used to interpr et this result as dionne l/abnormal. [facility] [employer] [id number] 08:03:00 Test Item Value Reference Range Interpretation Comments AST (test code = AST) 26 See_Comment [Auto mated message] The system which ge nerated this result transmit lavon reference range : <=37. The reference range was not used to interpr et this result as dionne l/abnormal. [facility] [employer] [id number] 08:03:00 Test Item Value Reference Range Interpretation Comments Alk Phos (test code = Alk Phos) 56 39-136 [facility] [employer] [id number] 08:03:00 Test Item Value Reference Range Interpretation Comments Bili Total (test code = Bili Total) 1.0 0.2-1.3 [facility] [employer] [id number] 08:03:00 Test Item Value Reference Range Interpretation Comments eGFR (test code = eGFR) 67 [facility] [employer] [id number] 08:03:00 Test Item Value Reference Range Interpretation Comments Magnesium Lvl (test code = Magnesium 1.9 1.8-2.4 Lvl) [facility] [id number] 08:03:00 Test Item Value Reference Range Interpretation Comments Procalcitonin Lvl (test no gt See_Comment [Au tomated message] code = Procalcitonin Lvl) Th e system which generated this result transmitted ref erence range: <=0.10. The reference range was not used to interpr et this result as normal/abnormal . [facility] [employer] [id number] 08:03:00 Test Item Value Reference Range Interpretation Comments LDH (test code = LDH) 354 98-192 [facility]KcfaedlILGVTIQHUU8796-20-44 08:03:00 Test Item Value Reference Range Interpretation Comments WBC (test code = WBC) 7.5 3.7-10.4 [facility] TexasXlzlmmzJFLEIRHJXQ2057-87-37 08:03:00 Test Item Value Reference Range Interpretation Comments RBC (test code = RBC) 3.44 4.20-5.40 [place] 778932-07-25 08:03:00 Test Item Value Reference Range Interpretation Comments Hgb (test code = Hgb) 8.3 12.0-16.0 [place] 778932-07-25 08:03:00 Test Item Value Reference Range Interpretation Comments Hct (test code = Hct) 26.2 36.0-48.0 [facility]NogbbhdYNLAGYWFMN3467-48-50 08:03:00 Test Item Value Reference Range Interpretation Comments MCV (test code = MCV) 76.1 80.0-98.0 [facility] CenterZcamtxbBCRKIDDKVP2290-53-12 08:03:00 Test Item Value Reference Range Interpretation Comments MCH (test code = MCH) 24.0 pg 27.0-31.0 [facility] CenterQuyuwizRZFGXAGYMA5982-09-97 08:03:00 Test Item Value Reference Range Interpretation Comments MCHC (test code = MCHC) 31.6 32.0-36.0 [facility] CenterYtsvuajQZQAFUKHFH6938-63-71 08:03:00 Test Item Value Reference Range Interpretation Comments RDW (test code = RDW) 20.9 11.5-14.5 [facility] CenterAjhsexzUGPNSWUBXN0315-06-86 08:03:00 Test Item Value Reference Range Interpretation Comments Platelet (test code = Platelet) 289 133-450 [facility] CenterCpayxhlRRZHXJZWSF8573-91-73 08:03:00 Test Item Value Reference Range Interpretation Comments MPV (test code = MPV) 7.5 7.4-10.4 [facility] CenterJiqagaqAYRQZZMGRX0684-66-29 08:03:00 Test Item Value Reference Range Interpretation Comments Segs (test code = Segs) 94.0 45.0-75.0 [facility] CenterOnbewdsJUIOACUXGF5982-19-93 08:03:00 Test Item Value Reference Range Interpretation Comments Lymphocytes (test code = Lymphocytes) 4.3 20.0-40.0 [place] 778932-07-25 08:03:00 Test Item Value Reference Range Interpretation Comments Monocytes (test code = Monocytes) 1.6 2.0-12.0 [place] 778932-07-25 08:03:00 Test Item Value Reference Range Interpretation Comments Basophils (test code = 0.1 See_Comment [Aut omated message] The Basophils) system which ge nerated this result tra nsmitted reference range : <=1.0. The reference r hugo was not used to int erpret this result as normal/abnormal . [facility] TexasLkzfgrfADXVEBTJRP9211-61-45 08:03:00 Test Item Value Reference Range Interpretation Comments Neutrophils # (test code = Neutrophils 7.0 1.5-8.1 #) [facility] TexasNsphjvwKDSWBUTEFN3351-28-44 08:03:00 Test Item Value Reference Range Interpretation Comments Lymphocytes # (test code = Lymphocytes 0.3 1.0-5.5 #) [facility] TexasAzchbpzUHATYULSTZ3031-07-08 08:03:00 Test Item Value Reference Range Interpretation Comments Monocytes # (test code 0.1 See_Comment [Aut omated message] The = Monocytes #) system which generated this result tra nsmitted reference range : <=0.8. The reference r hugo was not used to int erpret this result as normal/abnormal . [facility] TexasUmnwjtcYDDODGDUMD8336-82-87 08:03:00 Test Item Value Reference Range Interpretation Comments Microcyte (test code = 1+ *ABN*(06/13/22 Microcyte) 3:03 AM) [facility] [employer]2022-07-25 08:03:00 Test Item Value Reference Range Interpretation Comments HS Troponin I 1 Hr (test code = HS 50 Troponin I 1 Hr) [facility] [employer]2022-07-25 08:03:00 Test Item Value Reference Range Interpretation Comments HS Troponin I 0 to 1 See Note 5(06/13/22 Hour Delta (test code = 3:03 AM) HS Troponin I 0 to 1 Hour Delta) [facility] [employer]2022-07-25 08:03:00 Test Item Value Reference Range Interpretation Comments Glucose Lvl (test code = Glucose Lvl) 142 70-99 [facility] [employer]2022-07-25 08:03:00 Test Item Value Reference Range Interpretation Comments BUN (test code = BUN) 21 - [facility] [employer]2022-07-25 08:03:00 Test Item Value Reference Range Interpretation Comments Creatinine Lvl (test code = Creatinine 0.84 0.50-1.40 Lvl) [facility] [employer]2022-07-25 08:03:00 Test Item Value Reference Range Interpretation Comments Sodium Lvl (test code = Sodium Lvl) 133 135-145 [place] 852652-07-25 08:03:00 Test Item Value Reference Range Interpretation Comments Potassium Lvl (test code = Potassium 4.4 3.5-5.1 Lvl) [place] 852652-07-25 08:03:00 Test Item Value Reference Range Interpretation Comments Chloride Lvl (test code = Chloride Lvl) 98 95-109 [place] 852652-07-25 08:03:00 Test Item Value Reference Range Interpretation Comments CO2 (test code = CO2) 25 24-32 [place] 852652-07-25 08:03:00 Test Item Value Reference Range Interpretation Comments AGAP (test code = AGAP) 14.4 10.0-20.0 [place] 852652-07-25 08:03:00 Test Item Value Reference Range Interpretation Comments Calcium Lvl (test code = Calcium Lvl) 9.1 8.5-10.5 [place] 852652-07-25 08:03:00 Test Item Value Reference Range Interpretation Comments B/C Ratio (test code = B/C Ratio) 25 1 6-25 [place] 852652-07-25 08:03:00 Test Item Value Reference Range Interpretation Comments Total Protein (test code = Total 6.7 6.4-8.4 Protein) [place] 852652-07-25 08:03:00 Test Item Value Reference Range Interpretation Comments Albumin Lvl (test code = Albumin Lvl) 3.2 3.5-5.0 [place] 852652-07-25 08:03:00 Test Item Value Reference Range Interpretation Comments Globulin (test code = Globulin) 3.5 2.7-4.2 [place] 852652-07-25 08:03:00 Test Item Value Reference Range Interpretation Comments A/G Ratio (test code = A/G Ratio) 0.9 1 0.7-1.6 [place] [address]-07-25 08:03:00 Test Item Value Reference Range Interpretation Comments ALT (test code = ALT) 19 See_Comment [Auto mated message] The system which ge nerated this result transmit lavon reference range : <=65. The reference range was not used to interpr et this result as dionne l/abnormal. [place] 852652-07-25 08:03:00 Test Item Value Reference Range Interpretation Comments AST (test code = AST) 26 See_Comment [Auto mated message] The system which ge nerated this result transmit lavon reference range : <=37. The reference range was not used to interpr et this result as dionne l/abnormal. [facility] [employer] [id number] 08:03:00 Test Item Value Reference Range Interpretation Comments Alk Phos (test code = Alk Phos) 56 39-136 [facility] [employer] [id number] 08:03:00 Test Item Value Reference Range Interpretation Comments Bili Total (test code = Bili Total) 1.0 0.2-1.3 [facility] [employer] [id number] 08:03:00 Test Item Value Reference Range Interpretation Comments eGFR (test code = eGFR) 67 [facility] [id number] 08:03:00 Test Item Value Reference Range Interpretation Comments Magnesium Lvl (test code = Magnesium 1.9 1.8-2.4 Lvl) [facility] [id number] 08:03:00 Test Item Value Reference Range Interpretation Comments Procalcitonin Lvl (test no gt See_Comment [Au tomated message] code = Procalcitonin Lvl) Th e system which generated this result transmitted ref erence range: <=0.10. The reference range was not used to interpr et this result as normal/abnormal . [facility] [employer] [id number] 08:03:00 Test Item Value Reference Range Interpretation Comments LDH (test code = LDH) 354 98-192 [facility]villeQbtjnykSIFIFSKMMV7676-70-88 08:03:00 Test Item Value Reference Range Interpretation Comments WBC (test code = WBC) 7.5 3.7-10.4 [facility] GreenvillePhsjhzzVJYKKOWVEH5412-38-89 08:03:00 Test Item Value Reference Range Interpretation Comments RBC (test code = RBC) 3.44 4.20-5.40 [facility] GreenvilleYhuxzwaDMAXNNCXUC4042-27-70 08:03:00 Test Item Value Reference Range Interpretation Comments Hgb (test code = Hgb) 8.3 12.0-16.0 [facility] TexasSmefgsmCLKFBBSBRY4528-76-20 08:03:00 Test Item Value Reference Range Interpretation Comments Hct (test code = Hct) 26.2 36.0-48.0 [facility] CenterAvmjwbhZQAUXQULGF5716-16-28 08:03:00 Test Item Value Reference Range Interpretation Comments MCV (test code = MCV) 76.1 80.0-98.0 [place] 778932-07-25 08:03:00 Test Item Value Reference Range Interpretation Comments MCH (test code = MCH) 24.0 pg 27.0-31.0 [place] 778932-07-25 08:03:00 Test Item Value Reference Range Interpretation Comments MCHC (test code = MCHC) 31.6 32.0-36.0 [place] 778932-07-25 08:03:00 Test Item Value Reference Range Interpretation Comments RDW (test code = RDW) 20.9 11.5-14.5 [place] 778932-07-25 08:03:00 Test Item Value Reference Range Interpretation Comments Platelet (test code = Platelet) 289 133-450 [facility] CenterQqjwbmkGYRXJLQBDV5857-39-88 08:03:00 Test Item Value Reference Range Interpretation Comments MPV (test code = MPV) 7.5 7.4-10.4 [place] 778932-07-25 08:03:00 Test Item Value Reference Range Interpretation Comments Segs (test code = Segs) 94.0 45.0-75.0 [facility] CenterDvecyseRORGYDYYHN5692-27-24 08:03:00 Test Item Value Reference Range Interpretation Comments Lymphocytes (test code = Lymphocytes) 4.3 20.0-40.0 [facility] CenterSpszkpvCVBRWFXJBK7055-32-79 08:03:00 Test Item Value Reference Range Interpretation Comments Monocytes (test code = Monocytes) 1.6 2.0-12.0 [place] 778932-07-25 08:03:00 Test Item Value Reference Range Interpretation Comments Basophils (test code = 0.1 See_Comment [Aut omated message] The Basophils) system which ge nerated this result tra nsmitted reference range : <=1.0. The reference r hugo was not used to int erpret this result as normal/abnormal . [facility] CenterYlulrwbXHHZJICERL6059-12-47 08:03:00 Test Item Value Reference Range Interpretation Comments Neutrophils # (test code = Neutrophils 7.0 1.5-8.1 #) [place] 778932-07-25 08:03:00 Test Item Value Reference Range Interpretation Comments Lymphocytes # (test code = Lymphocytes 0.3 1.0-5.5 #) [facility] GreenvilleUjexnvrSCUHZQMKDT5330-09-88 08:03:00 Test Item Value Reference Range Interpretation Comments Monocytes # (test code 0.1 See_Comment [Aut omated message] The = Monocytes #) system which generated this result tra nsmitted reference range : <=0.8. The reference r hugo was not used to int erpret this result as normal/abnormal . [facility] GreenvilleUuojhaeSTKAWRFZJK3702-42-81 08:03:00 Test Item Value Reference Range Interpretation Comments Microcyte (test code = 1+ *ABN*(06/13/22 Microcyte) 3:03 AM) [facility] [id number] 08:03:00 Test Item Value Reference Range Interpretation Comments HS Troponin I 1 Hr (test code = HS 50 Troponin I 1 Hr) [facility] GreenvillePrePay[facility] [id number] 08:03:00 Test Item Value Reference Range Interpretation Comments HS Troponin I 0 to 1 See Note 5(06/13/22 Hour Delta (test code = 3:03 AM) HS Troponin I 0 to 1 Hour Delta) [facility] [employer]2022-07-25 08:03:00 Test Item Value Reference Range Interpretation Comments Glucose Lvl (test code = Glucose Lvl) 142 70-99 [facility] RJBBO8226-07-29 08:03:00 Test Item Value Reference Range Interpretation Comments BUN (test code = BUN) 21 - [facility] [employer] [id number] 08:03:00 Test Item Value Reference Range Interpretation Comments Creatinine Lvl (test code = Creatinine 0.84 0.50-1.40 Lvl) [facility] TexasFreedom Scientific Holdings, LLCXLUPL0034-44-07 08:03:00 Test Item Value Reference Range Interpretation Comments Sodium Lvl (test code = Sodium Lvl) 133 135-145 [facility] [employer] [id number] 08:03:00 Test Item Value Reference Range Interpretation Comments Potassium Lvl (test code = Potassium 4.4 3.5-5.1 Lvl) [facility] [id number] 08:03:00 Test Item Value Reference Range Interpretation Comments Chloride Lvl (test code = Chloride Lvl) 98 95-109 [place] 852652-07-25 08:03:00 Test Item Value Reference Range Interpretation Comments CO2 (test code = CO2) 25 24-32 [place] [address]-07-25 08:03:00 Test Item Value Reference Range Interpretation Comments AGAP (test code = AGAP) 14.4 10.0-20.0 [place] 852652-07-25 08:03:00 Test Item Value Reference Range Interpretation Comments Calcium Lvl (test code = Calcium Lvl) 9.1 8.5-10.5 [place] [address]-07-25 08:03:00 Test Item Value Reference Range Interpretation Comments B/C Ratio (test code = B/C Ratio) 25 1 6-25 [place] [address]-07-25 08:03:00 Test Item Value Reference Range Interpretation Comments Total Protein (test code = Total 6.7 6.4-8.4 Protein) [place] 852652-07-25 08:03:00 Test Item Value Reference Range Interpretation Comments Albumin Lvl (test code = Albumin Lvl) 3.2 3.5-5.0 [place] 852652-07-25 08:03:00 Test Item Value Reference Range Interpretation Comments Globulin (test code = Globulin) 3.5 2.7-4.2 [place] [address]-07-25 08:03:00 Test Item Value Reference Range Interpretation Comments A/G Ratio (test code = A/G Ratio) 0.9 1 0.7-1.6 [place] [address]-07-25 08:03:00 Test Item Value Reference Range Interpretation Comments ALT (test code = ALT) 19 See_Comment [Auto mated message] The system which ge nerated this result transmit lavon reference range : <=65. The reference range was not used to interpr et this result as dionne l/abnormal. [facility]villeTri[facility] [id number] 08:03:00 Test Item Value Reference Range Interpretation Comments AST (test code = AST) 26 See_Comment [Auto mated message] The system which ge nerated this result transmit lavon reference range : <=37. The reference range was not used to interpr et this result as dionne l/abnormal. [facility] [id number] 08:03:00 Test Item Value Reference Range Interpretation Comments Alk Phos (test code = Alk Phos) 56 39-136 [place] 852652-07-25 08:03:00 Test Item Value Reference Range Interpretation Comments Bili Total (test code = Bili Total) 1.0 0.2-1.3 [place] 852652-07-25 08:03:00 Test Item Value Reference Range Interpretation Comments eGFR (test code = eGFR) 67 [place] 852652-07-25 08:03:00 Test Item Value Reference Range Interpretation Comments Magnesium Lvl (test code = Magnesium 1.9 1.8-2.4 Lvl) [place] 852652-07-25 08:03:00 Test Item Value Reference Range Interpretation Comments Procalcitonin Lvl (test no gt See_Comment [Au tomated message] code = Procalcitonin Lvl) e system which generated this result transmitted ref erence range: <=0.10. The reference range was not used to interpr et this result as normal/abnormal . [place] 852652-07-25 08:03:00 Test Item Value Reference Range Interpretation Comments LDH (test code = LDH) 354 98-192 [place] 778932-07-25 08:03:00 Test Item Value Reference Range Interpretation Comments WBC (test code = WBC) 7.5 3.7-10.4 [place] [address]-07-25 08:03:00 Test Item Value Reference Range Interpretation Comments RBC (test code = RBC) 3.44 4.20-5.40 [place] [address]-07-25 08:03:00 Test Item Value Reference Range Interpretation Comments Hgb (test code = Hgb) 8.3 12.0-16.0 [place] [address]-07-25 08:03:00 Test Item Value Reference Range Interpretation Comments Hct (test code = Hct) 26.2 36.0-48.0 [place] [address]-07-25 08:03:00 Test Item Value Reference Range Interpretation Comments MCV (test code = MCV) 76.1 80.0-98.0 [place] [address]-07-25 08:03:00 Test Item Value Reference Range Interpretation Comments MCH (test code = MCH) 24.0 pg 27.0-31.0 [place] 778932-07-25 08:03:00 Test Item Value Reference Range Interpretation Comments MCHC (test code = MCHC) 31.6 32.0-36.0 [place] 778932-07-25 08:03:00 Test Item Value Reference Range Interpretation Comments RDW (test code = RDW) 20.9 11.5-14.5 [place] 778932-07-25 08:03:00 Test Item Value Reference Range Interpretation Comments Platelet (test code = Platelet) 289 133-450 [facility] CenterXdeucjiUGKZUNVMCC1398-60-39 08:03:00 Test Item Value Reference Range Interpretation Comments MPV (test code = MPV) 7.5 7.4-10.4 [place] 778932-07-25 08:03:00 Test Item Value Reference Range Interpretation Comments Segs (test code = Segs) 94.0 45.0-75.0 [place] 778932-07-25 08:03:00 Test Item Value Reference Range Interpretation Comments Lymphocytes (test code = Lymphocytes) 4.3 20.0-40.0 [place] 778932-07-25 08:03:00 Test Item Value Reference Range Interpretation Comments Monocytes (test code = Monocytes) 1.6 2.0-12.0 [place] [address]-07-25 08:03:00 Test Item Value Reference Range Interpretation Comments Basophils (test code = 0.1 See_Comment [Aut omated message] The Basophils) system which ge nerated this result tra nsmitted reference range : <=1.0. The reference r hugo was not used to int erpret this result as normal/abnormal . [facility] CenterZrdugmhSEDGKDGIFM2603-83-68 08:03:00 Test Item Value Reference Range Interpretation Comments Neutrophils # (test code = Neutrophils 7.0 1.5-8.1 #) [place] 778932-07-25 08:03:00 Test Item Value Reference Range Interpretation Comments Lymphocytes # (test code = Lymphocytes 0.3 1.0-5.5 #) [place] 778932-07-25 08:03:00 Test Item Value Reference Range Interpretation Comments Monocytes # (test code 0.1 See_Comment [Aut omated message] The = Monocytes #) system which generated this result tra nsmitted reference range : <=0.8. The reference r hugo was not used to int erpret this result as normal/abnormal . [facility]XR[facility]BROD8659-[facility]-74 08:03:00 Test Item Value Reference Range Interpretation Comments Microcyte (test code = 1+ *ABN*(06/13/22 Microcyte) 3:03 AM) [facility] [id number] 08:03:00 Test Item Value Reference Range Interpretation Comments HS Troponin I 1 Hr (test code = HS 50 Troponin I 1 Hr) [facility] [id number] 08:03:00 Test Item Value Reference Range Interpretation Comments HS Troponin I 0 to 1 See Note 5(06/13/22 Hour Delta (test code = 3:03 AM) HS Troponin I 0 to 1 Hour Delta) [facility] [id number] 08:03:00 Test Item Value Reference Range Interpretation Comments Glucose Lvl (test code = Glucose Lvl) 142 70-99 [facility] [id number] 08:03:00 Test Item Value Reference Range Interpretation Comments BUN (test code = BUN) 21 - [facility]2022-07-25 08:03:00 Test Item Value Reference Range Interpretation Comments Creatinine Lvl (test code = Creatinine 0.84 0.50-1.40 Lvl) [facility]2022-07-25 08:03:00 Test Item Value Reference Range Interpretation Comments Sodium Lvl (test code = Sodium Lvl) 133 135-145 [facility] [id number] 08:03:00 Test Item Value Reference Range Interpretation Comments Potassium Lvl (test code = Potassium 4.4 3.5-5.1 Lvl) [facility]2022-07-25 08:03:00 Test Item Value Reference Range Interpretation Comments Chloride Lvl (test code = Chloride Lvl) 98 95-109 [facility]2022-07-25 08:03:00 Test Item Value Reference Range Interpretation Comments CO2 (test code = CO2) 25 24-32 [facility]2022-07-25 08:03:00 Test Item Value Reference Range Interpretation Comments AGAP (test code = AGAP) 14.4 10.0-20.0 [facility] [id number] 08:03:00 Test Item Value Reference Range Interpretation Comments Calcium Lvl (test code = Calcium Lvl) 9.1 8.5-10.5 [facility] [id number] 08:03:00 Test Item Value Reference Range Interpretation Comments B/C Ratio (test code = B/C Ratio) 25 1 6-25 [facility] [id number] 08:03:00 Test Item Value Reference Range Interpretation Comments Total Protein (test code = Total 6.7 6.4-8.4 Protein) [facility] [id number] 08:03:00 Test Item Value Reference Range Interpretation Comments Albumin Lvl (test code = Albumin Lvl) 3.2 3.5-5.0 [facility] [id number] 08:03:00 Test Item Value Reference Range Interpretation Comments Globulin (test code = Globulin) 3.5 2.7-4.2 [facility] [id number] 08:03:00 Test Item Value Reference Range Interpretation Comments A/G Ratio (test code = A/G Ratio) 0.9 1 0.7-1.6 [facility] [id number] 08:03:00 Test Item Value Reference Range Interpretation Comments ALT (test code = ALT) 19 See_Comment [Auto mated message] The system which ge nerated this result transmit lavon reference range : <=65. The reference range was not used to interpr et this result as dionne l/abnormal. [facility] [employer] [id number] 08:03:00 Test Item Value Reference Range Interpretation Comments AST (test code = AST) 26 See_Comment [Auto mated message] The system which ge nerated this result transmit lavon reference range : <=37. The reference range was not used to interpr et this result as dionne l/abnormal. [facility] [employer] [id number] 08:03:00 Test Item Value Reference Range Interpretation Comments Alk Phos (test code = Alk Phos) 56 39-136 [facility] [id number] 08:03:00 Test Item Value Reference Range Interpretation Comments Bili Total (test code = Bili Total) 1.0 0.2-1.3 [facility] [employer] [id number] 08:03:00 Test Item Value Reference Range Interpretation Comments eGFR (test code = eGFR) 67 [facility]2022-07-25 08:03:00 Test Item Value Reference Range Interpretation Comments Magnesium Lvl (test code = Magnesium 1.9 1.8-2.4 Lvl) [place] 852652-07-25 08:03:00 Test Item Value Reference Range Interpretation Comments Procalcitonin Lvl (test no gt See_Comment [Au tomated message] code = Procalcitonin Lvl) e system which generated this result transmitted ref erence range: <=0.10. The reference range was not used to interpr et this result as normal/abnormal . [facility]2022-07-25 08:03:00 Test Item Value Reference Range Interpretation Comments LDH (test code = LDH) 354 98-192 [facility] CenterUwppkozSIJBRNBAJH9182-73-17 08:03:00 Test Item Value Reference Range Interpretation Comments WBC (test code = WBC) 7.5 3.7-10.4 [place] 778932-07-25 08:03:00 Test Item Value Reference Range Interpretation Comments RBC (test code = RBC) 3.44 4.20-5.40 [place] 778932-07-25 08:03:00 Test Item Value Reference Range Interpretation Comments Hgb (test code = Hgb) 8.3 12.0-16.0 [place] 778932-07-25 08:03:00 Test Item Value Reference Range Interpretation Comments Hct (test code = Hct) 26.2 36.0-48.0 [place] 778932-07-25 08:03:00 Test Item Value Reference Range Interpretation Comments MCV (test code = MCV) 76.1 80.0-98.0 [place] 778932-07-25 08:03:00 Test Item Value Reference Range Interpretation Comments MCH (test code = MCH) 24.0 pg 27.0-31.0 [place] 778932-07-25 08:03:00 Test Item Value Reference Range Interpretation Comments MCHC (test code = MCHC) 31.6 32.0-36.0 [place] 778932-07-25 08:03:00 Test Item Value Reference Range Interpretation Comments RDW (test code = RDW) 20.9 11.5-14.5 [facility]PfstoqkIYFLSZTPED8653-79-72 08:03:00 Test Item Value Reference Range Interpretation Comments Platelet (test code = Platelet) 289 133-450 [facility] CenterKfbbrnvRNDZTHVRKL8407-43-81 08:03:00 Test Item Value Reference Range Interpretation Comments MPV (test code = MPV) 7.5 7.4-10.4 [place] 778932-07-25 08:03:00 Test Item Value Reference Range Interpretation Comments Segs (test code = Segs) 94.0 45.0-75.0 [place] 778932-07-25 08:03:00 Test Item Value Reference Range Interpretation Comments Lymphocytes (test code = Lymphocytes) 4.3 20.0-40.0 [place] 778932-07-25 08:03:00 Test Item Value Reference Range Interpretation Comments Monocytes (test code = Monocytes) 1.6 2.0-12.0 [place] 778932-07-25 08:03:00 Test Item Value Reference Range Interpretation Comments Basophils (test code = 0.1 See_Comment [Aut omated message] The Basophils) system which ge nerated this result tra nsmitted reference range : <=1.0. The reference r hugo was not used to int erpret this result as normal/abnormal . [facility] CenterEqlqlhkTNXOMTYZPI4644-20-83 08:03:00 Test Item Value Reference Range Interpretation Comments Neutrophils # (test code = Neutrophils 7.0 1.5-8.1 #) [place] 778932-07-25 08:03:00 Test Item Value Reference Range Interpretation Comments Lymphocytes # (test code = Lymphocytes 0.3 1.0-5.5 #) [place] [address]-07-25 08:03:00 Test Item Value Reference Range Interpretation Comments Monocytes # (test code 0.1 See_Comment [Aut omated message] The = Monocytes #) system which generated this result tra nsmitted reference range : <=0.8. The reference r hugo was not used to int erpret this result as normal/abnormal . [facility] CenterUvgduqaZYYXVGAHNM5655-27-28 08:03:00 Test Item Value Reference Range Interpretation Comments Microcyte (test code = 1+ *ABN*(06/13/22 Microcyte) 3:03 AM) [facility]villeCARDI[facility] [id number] 08:03:00 Test Item Value Reference Range Interpretation Comments HS Troponin I 1 Hr (test code = HS 50 Troponin I 1 Hr) [facility] [id number] 08:03:00 Test Item Value Reference Range Interpretation Comments HS Troponin I 0 to 1 See Note 5(06/13/22 Hour Delta (test code = 3:03 AM) HS Troponin I 0 to 1 Hour Delta) [facility] [employer] [id number] 08:03:00 Test Item Value Reference Range Interpretation Comments Glucose Lvl (test code = Glucose Lvl) 142 70-99 [facility] [employer] [id number] 08:03:00 Test Item Value Reference Range Interpretation Comments BUN (test code = BUN) 21 06-10 [facility] [employer] [id number] 08:03:00 Test Item Value Reference Range Interpretation Comments Creatinine Lvl (test code = Creatinine 0.84 0.50-1.40 Lvl) [facility] [employer] [id number] 08:03:00 Test Item Value Reference Range Interpretation Comments Sodium Lvl (test code = Sodium Lvl) 133 135-145 [facility] [employer] [id number] 08:03:00 Test Item Value Reference Range Interpretation Comments Potassium Lvl (test code = Potassium 4.4 3.5-5.1 Lvl) [facility] [employer] [id number] 08:03:00 Test Item Value Reference Range Interpretation Comments Chloride Lvl (test code = Chloride Lvl) 98 95-109 [facility] [employer] [id number] 08:03:00 Test Item Value Reference Range Interpretation Comments CO2 (test code = CO2) 25 24-32 [facility] [id number] 08:03:00 Test Item Value Reference Range Interpretation Comments AGAP (test code = AGAP) 14.4 10.0-20.0 [facility] [employer] [id number] 08:03:00 Test Item Value Reference Range Interpretation Comments Calcium Lvl (test code = Calcium Lvl) 9.1 8.5-10.5 [facility] [id number] 08:03:00 Test Item Value Reference Range Interpretation Comments B/C Ratio (test code = B/C Ratio) 25 1 6-25 [facility] [id number] 08:03:00 Test Item Value Reference Range Interpretation Comments Total Protein (test code = Total 6.7 6.4-8.4 Protein) [place] 852652-07-25 08:03:00 Test Item Value Reference Range Interpretation Comments Albumin Lvl (test code = Albumin Lvl) 3.2 3.5-5.0 [facility] [id number] 08:03:00 Test Item Value Reference Range Interpretation Comments Globulin (test code = Globulin) 3.5 2.7-4.2 [facility] TexasMelodigramEM[place] [id number] 08:03:00 Test Item Value Reference Range Interpretation Comments A/G Ratio (test code = A/G Ratio) 0.9 1 0.7-1.6 [place] 852652-07-25 08:03:00 Test Item Value Reference Range Interpretation Comments ALT (test code = ALT) 19 See_Comment [Auto mated message] The system which ge nerated this result transmit lavon reference range : <=65. The reference range was not used to interpr et this result as dionne l/abnormal. [facility] [id number] 08:03:00 Test Item Value Reference Range Interpretation Comments AST (test code = AST) 26 See_Comment [Auto mated message] The system which ge nerated this result transmit lavon reference range : <=37. The reference range was not used to interpr et this result as dionne l/abnormal. [facility] [id number] 08:03:00 Test Item Value Reference Range Interpretation Comments Alk Phos (test code = Alk Phos) 56 39-136 [facility] [id number] 08:03:00 Test Item Value Reference Range Interpretation Comments Bili Total (test code = Bili Total) 1.0 0.2-1.3 [facility] [id number] 08:03:00 Test Item Value Reference Range Interpretation Comments eGFR (test code = eGFR) 67 [facility] [id number] 08:03:00 Test Item Value Reference Range Interpretation Comments Magnesium Lvl (test code = Magnesium 1.9 1.8-2.4 Lvl) [place] 852652-07-25 08:03:00 Test Item Value Reference Range Interpretation Comments Procalcitonin Lvl (test no gt See_Comment [Au tomated message] code = Procalcitonin Lvl) Th e system which generated this result transmitted ref erence range: <=0.10. The reference range was not used to interpr et this result as normal/abnormal . [facility]2022-07-25 08:03:00 Test Item Value Reference Range Interpretation Comments LDH (test code = LDH) 354 98-192 [facility] CenterTsgidvkGRGGAZERJO0443-28-73 08:03:00 Test Item Value Reference Range Interpretation Comments WBC (test code = WBC) 7.5 3.7-10.4 [facility] CenterRwxxuniMOATTGJNCR9606-25-53 08:03:00 Test Item Value Reference Range Interpretation Comments RBC (test code = RBC) 3.44 4.20-5.40 [facility] CenterByxftpuVLHNWHVESH5623-30-02 08:03:00 Test Item Value Reference Range Interpretation Comments Hgb (test code = Hgb) 8.3 12.0-16.0 [facility] CenterOzeovxhPWCLNTRQWB2768-79-38 08:03:00 Test Item Value Reference Range Interpretation Comments Hct (test code = Hct) 26.2 36.0-48.0 [facility] CenterZykmwgtFWGFEMEZQA3478-47-78 08:03:00 Test Item Value Reference Range Interpretation Comments MCV (test code = MCV) 76.1 80.0-98.0 [facility] CenterJmqmibeKDUWQAJYNI5217-13-55 08:03:00 Test Item Value Reference Range Interpretation Comments MCH (test code = MCH) 24.0 pg 27.0-31.0 [facility] CenterSkiufyhXALQTAGGIW9164-28-98 08:03:00 Test Item Value Reference Range Interpretation Comments MCHC (test code = MCHC) 31.6 32.0-36.0 [place] 778932-07-25 08:03:00 Test Item Value Reference Range Interpretation Comments RDW (test code = RDW) 20.9 11.5-14.5 [facility] CenterQcrenexZDQKVNIMKA7756-16-95 08:03:00 Test Item Value Reference Range Interpretation Comments Platelet (test code = Platelet) 289 133-450 [facility] CenterTgruhdrINYXTNOAGY8175-92-93 08:03:00 Test Item Value Reference Range Interpretation Comments MPV (test code = MPV) 7.5 7.4-10.4 [facility]LmnzohbMUQKEOOZEN1304-57-59 08:03:00 Test Item Value Reference Range Interpretation Comments Segs (test code = Segs) 94.0 45.0-75.0 [facility] CenterTkmvyruVCZGPXXINB9929-06-66 08:03:00 Test Item Value Reference Range Interpretation Comments Lymphocytes (test code = Lymphocytes) 4.3 20.0-40.0 [facility] CenterAirtvwzAKTBBUNZAU0055-96-50 08:03:00 Test Item Value Reference Range Interpretation Comments Monocytes (test code = Monocytes) 1.6 2.0-12.0 [facility] CenterZsqwdctREVPGDDXYA3460-26-60 08:03:00 Test Item Value Reference Range Interpretation Comments Basophils (test code = 0.1 See_Comment [Aut omated message] The Basophils) system which ge nerated this result tra nsmitted reference range : <=1.0. The reference r hugo was not used to int erpret this result as normal/abnormal . [facility] HospitalZlxcyuzOMHKJHOLDC1336-90-39 08:03:00 Test Item Value Reference Range Interpretation Comments Neutrophils # (test code = Neutrophils 7.0 1.5-8.1 #) [facility] CenterTbinnnjNOAEDFXBKS5003-80-48 08:03:00 Test Item Value Reference Range Interpretation Comments Lymphocytes # (test code = Lymphocytes 0.3 1.0-5.5 #) [facility] CenterWhkwhgnQNNRCEXUDJ0336-26-70 08:03:00 Test Item Value Reference Range Interpretation Comments Monocytes # (test code 0.1 See_Comment [Aut omated message] The = Monocytes #) system which generated this result tra nsmitted reference range : <=0.8. The reference r hugo was not used to int erpret this result as normal/abnormal . [facility] GreenvilleQmijfxzFJERDEXWMB6238-97-67 08:03:00 Test Item Value Reference Range Interpretation Comments Microcyte (test code = 1+ *ABN*(06/13/22 Microcyte) 3:03 AM) [facility]villeSyn[facility] [id number] 08:03:00 Test Item Value Reference Range Interpretation Comments HS Troponin I 1 Hr (test code = HS 50 Troponin I 1 Hr) [facility]villePrePayMe [id number] 08:03:00 Test Item Value Reference Range Interpretation Comments HS Troponin I 0 to 1 See Note 5(06/13/22 Hour Delta (test code = 3:03 AM) HS Troponin I 0 to 1 Hour Delta) [place] 852652-07-25 08:03:00 Test Item Value Reference Range Interpretation Comments Glucose Lvl (test code = Glucose Lvl) 142 70-99 [place] 852652-07-25 08:03:00 Test Item Value Reference Range Interpretation Comments BUN (test code = BUN) 21 - [place] 852652-07-25 08:03:00 Test Item Value Reference Range Interpretation Comments Creatinine Lvl (test code = Creatinine 0.84 0.50-1.40 Lvl) [place] 852652-07-25 08:03:00 Test Item Value Reference Range Interpretation Comments Sodium Lvl (test code = Sodium Lvl) 133 135-145 [place] 852652-07-25 08:03:00 Test Item Value Reference Range Interpretation Comments Potassium Lvl (test code = Potassium 4.4 3.5-5.1 Lvl) [place] 852652-07-25 08:03:00 Test Item Value Reference Range Interpretation Comments Chloride Lvl (test code = Chloride Lvl) 98 95-109 [place] 852652-07-25 08:03:00 Test Item Value Reference Range Interpretation Comments CO2 (test code = CO2) 25 24-32 [place] 852652-07-25 08:03:00 Test Item Value Reference Range Interpretation Comments AGAP (test code = AGAP) 14.4 10.0-20.0 [place] 852652-07-25 08:03:00 Test Item Value Reference Range Interpretation Comments Calcium Lvl (test code = Calcium Lvl) 9.1 8.5-10.5 [place] 852652-07-25 08:03:00 Test Item Value Reference Range Interpretation Comments B/C Ratio (test code = B/C Ratio) 25 1 6-25 [place] 852652-07-25 08:03:00 Test Item Value Reference Range Interpretation Comments Total Protein (test code = Total 6.7 6.4-8.4 Protein) [place] 852652-07-25 08:03:00 Test Item Value Reference Range Interpretation Comments Albumin Lvl (test code = Albumin Lvl) 3.2 3.5-5.0 [facility] [id number] 08:03:00 Test Item Value Reference Range Interpretation Comments Globulin (test code = Globulin) 3.5 2.7-4.2 [place] [address]-07-25 08:03:00 Test Item Value Reference Range Interpretation Comments A/G Ratio (test code = A/G Ratio) 0.9 1 0.7-1.6 [facility] [id number] 08:03:00 Test Item Value Reference Range Interpretation Comments ALT (test code = ALT) 19 See_Comment [Auto mated message] The system which ge nerated this result transmit lavon reference range : <=65. The reference range was not used to interpr et this result as dionne l/abnormal. [facility] [id number] 08:03:00 Test Item Value Reference Range Interpretation Comments AST (test code = AST) 26 See_Comment [Auto mated message] The system which ge nerated this result transmit lavon reference range : <=37. The reference range was not used to interpr et this result as dionne l/abnormal. [facility] [id number] 08:03:00 Test Item Value Reference Range Interpretation Comments Alk Phos (test code = Alk Phos) 56 39-136 [facility] [id number] 08:03:00 Test Item Value Reference Range Interpretation Comments Bili Total (test code = Bili Total) 1.0 0.2-1.3 [facility] [id number] 08:03:00 Test Item Value Reference Range Interpretation Comments eGFR (test code = eGFR) 67 [facility] [id number] 08:03:00 Test Item Value Reference Range Interpretation Comments Magnesium Lvl (test code = Magnesium 1.9 1.8-2.4 Lvl) [facility] [id number] 08:03:00 Test Item Value Reference Range Interpretation Comments Procalcitonin Lvl (test no gt See_Comment [Au tomated message] code = Procalcitonin Lvl) Th e system which generated this result transmitted ref erence range: <=0.10. The reference range was not used to interpr et this result as normal/abnormal . [facility] [employer] [id number] 08:03:00 Test Item Value Reference Range Interpretation Comments LDH (test code = LDH) 354 98-192 [facility] CenterGjaytptKFAQZUXISM4570-88-18 08:03:00 Test Item Value Reference Range Interpretation Comments WBC (test code = WBC) 7.5 3.7-10.4 [place] 778932-07-25 08:03:00 Test Item Value Reference Range Interpretation Comments RBC (test code = RBC) 3.44 4.20-5.40 [place] 778932-07-25 08:03:00 Test Item Value Reference Range Interpretation Comments Hgb (test code = Hgb) 8.3 12.0-16.0 [place] [address]-07-25 08:03:00 Test Item Value Reference Range Interpretation Comments Hct (test code = Hct) 26.2 36.0-48.0 [place] 778932-07-25 08:03:00 Test Item Value Reference Range Interpretation Comments MCV (test code = MCV) 76.1 80.0-98.0 [place] 778932-07-25 08:03:00 Test Item Value Reference Range Interpretation Comments MCH (test code = MCH) 24.0 pg 27.0-31.0 [facility] CenterFsumjcnIBRSPMCEPK6121-84-05 08:03:00 Test Item Value Reference Range Interpretation Comments MCHC (test code = MCHC) 31.6 32.0-36.0 [facility] CenterVfrcbahKIBNAFAYPW3080-43-03 08:03:00 Test Item Value Reference Range Interpretation Comments RDW (test code = RDW) 20.9 11.5-14.5 [place] 778932-07-25 08:03:00 Test Item Value Reference Range Interpretation Comments Platelet (test code = Platelet) 289 133-450 [facility] CenterLkyhgutPQIIQUVVGB3663-46-14 08:03:00 Test Item Value Reference Range Interpretation Comments MPV (test code = MPV) 7.5 7.4-10.4 [place] 778932-07-25 08:03:00 Test Item Value Reference Range Interpretation Comments Segs (test code = Segs) 94.0 45.0-75.0 [place] 778932-07-25 08:03:00 Test Item Value Reference Range Interpretation Comments Lymphocytes (test code = Lymphocytes) 4.3 20.0-40.0 [facility] TexasZrjhirbOVLFYLUZDH4028-13-06 08:03:00 Test Item Value Reference Range Interpretation Comments Monocytes (test code = Monocytes) 1.6 2.0-12.0 [facility]BssgmmaUJCCHKBGHB6738-76-12 08:03:00 Test Item Value Reference Range Interpretation Comments Basophils (test code = 0.1 See_Comment [Aut omated message] The Basophils) system which ge nerated this result tra nsmitted reference range : <=1.0. The reference r hugo was not used to int erpret this result as normal/abnormal . [facility] TexasNtfpgldXCBQXRYOGV1183-56-28 08:03:00 Test Item Value Reference Range Interpretation Comments Neutrophils # (test code = Neutrophils 7.0 1.5-8.1 #) [facility] HospitalBnknmrfAIVQRZDBFS4681-29-28 08:03:00 Test Item Value Reference Range Interpretation Comments Lymphocytes # (test code = Lymphocytes 0.3 1.0-5.5 #) [facility]villeVptnrpdJWDUOUKZNQ6654-24-50 08:03:00 Test Item Value Reference Range Interpretation Comments Monocytes # (test code 0.1 See_Comment [Aut omated message] The = Monocytes #) system which generated this result tra nsmitted reference range : <=0.8. The reference r hugo was not used to int erpret this result as normal/abnormal . [facility] GreenvillePshkzhuZLRKAJODTF2161-51-18 08:03:00 Test Item Value Reference Range Interpretation Comments Microcyte (test code = 1+ *ABN*(06/13/22 Microcyte) 3:03 AM) [facility] [employer]2022-[facility] 08:03:00 Test Item Value Reference Range Interpretation Comments HS Troponin I 1 Hr (test code = HS 50 Troponin I 1 Hr) [facility] [employer] [facility]2022-07-25 08:03:00 Test Item Value Reference Range Interpretation Comments HS Troponin I 0 to 1 See Note 5(06/13/22 Hour Delta (test code = 3:03 AM) HS Troponin I 0 to 1 Hour Delta) [facility] TexasFreedom Scientific Holdings, [id number] 08:03:00 Test Item Value Reference Range Interpretation Comments Glucose Lvl (test code = Glucose Lvl) 142 70-99 [facility] TexasFre[facility] Scientific Holdings, [id number] 08:03:00 Test Item Value Reference Range Interpretation Comments BUN (test code = BUN) 21 7-22 [place] 852652-07-25 08:03:00 Test Item Value Reference Range Interpretation Comments Creatinine Lvl (test code = Creatinine 0.84 0.50-1.40 Lvl) [facility]2022-07-25 08:03:00 Test Item Value Reference Range Interpretation Comments Sodium Lvl (test code = Sodium Lvl) 133 135-145 [place] 852652-07-25 08:03:00 Test Item Value Reference Range Interpretation Comments Potassium Lvl (test code = Potassium 4.4 3.5-5.1 Lvl) [place] 852652-07-25 08:03:00 Test Item Value Reference Range Interpretation Comments Chloride Lvl (test code = Chloride Lvl) 98 95-109 [place] 852652-07-25 08:03:00 Test Item Value Reference Range Interpretation Comments CO2 (test code = CO2) 24-32 [place] 852652-07-25 08:03:00 Test Item Value Reference Range Interpretation Comments AGAP (test code = AGAP) 14.4 10.0-20.0 [place] 852652-07-25 08:03:00 Test Item Value Reference Range Interpretation Comments Calcium Lvl (test code = Calcium Lvl) 9.1 8.5-10.5 [place] 852652-07-25 08:03:00 Test Item Value Reference Range Interpretation Comments B/C Ratio (test code = B/C Ratio) 25 1 6-25 [place] 852652-07-25 08:03:00 Test Item Value Reference Range Interpretation Comments Total Protein (test code = Total 6.7 6.4-8.4 Protein) [place] 852652-07-25 08:03:00 Test Item Value Reference Range Interpretation Comments Albumin Lvl (test code = Albumin Lvl) 3.2 3.5-5.0 [place] 852652-07-25 08:03:00 Test Item Value Reference Range Interpretation Comments Globulin (test code = Globulin) 3.5 2.7-4.2 [place] 852652-07-25 08:03:00 Test Item Value Reference Range Interpretation Comments A/G Ratio (test code = A/G Ratio) 0.9 1 0.7-1.6 [facility] [employer] [id number] 08:03:00 Test Item Value Reference Range Interpretation Comments ALT (test code = ALT) 19 See_Comment [Auto mated message] The system which ge nerated this result transmit lavon reference range : <=65. The reference range was not used to interpr et this result as dionne l/abnormal. [facility] [employer] [id number] 08:03:00 Test Item Value Reference Range Interpretation Comments AST (test code = AST) 26 See_Comment [Auto mated message] The system which ge nerated this result transmit lavon reference range : <=37. The reference range was not used to interpr et this result as dionne l/abnormal. [facility] [employer] [id number] 08:03:00 Test Item Value Reference Range Interpretation Comments Alk Phos (test code = Alk Phos) 56 39-136 [facility] [employer] [id number] 08:03:00 Test Item Value Reference Range Interpretation Comments Bili Total (test code = Bili Total) 1.0 0.2-1.3 [facility] [employer] [id number] 08:03:00 Test Item Value Reference Range Interpretation Comments eGFR (test code = eGFR) 67 [facility] [employer] [id number] 08:03:00 Test Item Value Reference Range Interpretation Comments Magnesium Lvl (test code = Magnesium 1.9 1.8-2.4 Lvl) [facility] [id number] 08:03:00 Test Item Value Reference Range Interpretation Comments Procalcitonin Lvl (test no gt See_Comment [Au tomated message] code = Procalcitonin Lvl) Th e system which generated this result transmitted ref erence range: <=0.10. The reference range was not used to interpr et this result as normal/abnormal . [facility] [employer] [id number] 08:03:00 Test Item Value Reference Range Interpretation Comments LDH (test code = LDH) 354 98-192 [facility] TexasZqrzpajJZZDRMBRIY5318-92-30 08:03:00 Test Item Value Reference Range Interpretation Comments WBC (test code = WBC) 7.5 3.7-10.4 [facility] TexasMsuyoxuBRVJDTDLLC7226-98-22 08:03:00 Test Item Value Reference Range Interpretation Comments RBC (test code = RBC) 3.44 4.20-5.40 [place] 778932-07-25 08:03:00 Test Item Value Reference Range Interpretation Comments Hgb (test code = Hgb) 8.3 12.0-16.0 [place] 778932-07-25 08:03:00 Test Item Value Reference Range Interpretation Comments Hct (test code = Hct) 26.2 36.0-48.0 [place] 778932-07-25 08:03:00 Test Item Value Reference Range Interpretation Comments MCV (test code = MCV) 76.1 80.0-98.0 [place] 778932-07-25 08:03:00 Test Item Value Reference Range Interpretation Comments MCH (test code = MCH) 24.0 pg 27.0-31.0 [place] 778932-07-25 08:03:00 Test Item Value Reference Range Interpretation Comments MCHC (test code = MCHC) 31.6 32.0-36.0 [place] 778932-07-25 08:03:00 Test Item Value Reference Range Interpretation Comments RDW (test code = RDW) 20.9 11.5-14.5 [place] 778932-07-25 08:03:00 Test Item Value Reference Range Interpretation Comments Platelet (test code = Platelet) 289 133-450 [facility] CenterCeuotueHEQYEQGUDW2257-33-17 08:03:00 Test Item Value Reference Range Interpretation Comments MPV (test code = MPV) 7.5 7.4-10.4 [place] 778932-07-25 08:03:00 Test Item Value Reference Range Interpretation Comments Segs (test code = Segs) 94.0 45.0-75.0 [place] 778932-07-25 08:03:00 Test Item Value Reference Range Interpretation Comments Lymphocytes (test code = Lymphocytes) 4.3 20.0-40.0 [place] [address]-07-25 08:03:00 Test Item Value Reference Range Interpretation Comments Monocytes (test code = Monocytes) 1.6 2.0-12.0 [place] 778932-07-25 08:03:00 Test Item Value Reference Range Interpretation Comments Basophils (test code = 0.1 See_Comment [Aut omated message] The Basophils) system which ge nerated this result tra nsmitted reference range : <=1.0. The reference r hugo was not used to int erpret this result as normal/abnormal . [facility]TzxvytjLYKFFJUZKN8568-25-77 08:03:00 Test Item Value Reference Range Interpretation Comments Neutrophils # (test code = Neutrophils 7.0 1.5-8.1 #) [facility] TexasBaxnrqsMMAVTWIWPK3077-95-76 08:03:00 Test Item Value Reference Range Interpretation Comments Lymphocytes # (test code = Lymphocytes 0.3 1.0-5.5 #) [facility] TexasNpzxrppOFXBZYVXUK5982-16-58 08:03:00 Test Item Value Reference Range Interpretation Comments Monocytes # (test code 0.1 See_Comment [Aut omated message] The = Monocytes #) system which generated this result tra nsmitted reference range : <=0.8. The reference r hugo was not used to int erpret this result as normal/abnormal . [facility] TexasXaiaafmHTQEJDNFQX9454-93-34 08:03:00 Test Item Value Reference Range Interpretation Comments Microcyte (test code = 1+ *ABN*(06/13/22 Microcyte) 3:03 AM) [facility] [employer] 08:03:00 Test Item Value Reference Range Interpretation Comments HS Troponin I 1 Hr (test code = HS 50 Troponin I 1 Hr) [facility] [employer] [facility] 08:03:00 Test Item Value Reference Range Interpretation Comments HS Troponin I 0 to 1 See Note 5(06/13/22 Hour Delta (test code = 3:03 AM) HS Troponin I 0 to 1 Hour Delta) [facility] [employer]2022-07-25 08:03:00 Test Item Value Reference Range Interpretation Comments Glucose Lvl (test code = Glucose Lvl) 142 70-99 [facility] [employer] [id number] 08:03:00 Test Item Value Reference Range Interpretation Comments BUN (test code = BUN) 21 - [facility] [employer] [id number] 08:03:00 Test Item Value Reference Range Interpretation Comments Creatinine Lvl (test code = Creatinine 0.84 0.50-1.40 Lvl) [facility] [employer] [id number] 08:03:00 Test Item Value Reference Range Interpretation Comments Sodium Lvl (test code = Sodium Lvl) 133 135-145 [place] 852652-07-25 08:03:00 Test Item Value Reference Range Interpretation Comments Potassium Lvl (test code = Potassium 4.4 3.5-5.1 Lvl) [facility]2022-07-25 08:03:00 Test Item Value Reference Range Interpretation Comments Chloride Lvl (test code = Chloride Lvl) 98 95-109 [place] 852652-07-25 08:03:00 Test Item Value Reference Range Interpretation Comments CO2 (test code = CO2) 25 24-32 [place] 852652-07-25 08:03:00 Test Item Value Reference Range Interpretation Comments AGAP (test code = AGAP) 14.4 10.0-20.0 [place] 852652-07-25 08:03:00 Test Item Value Reference Range Interpretation Comments Calcium Lvl (test code = Calcium Lvl) 9.1 8.5-10.5 [place] 852652-07-25 08:03:00 Test Item Value Reference Range Interpretation Comments B/C Ratio (test code = B/C Ratio) 25 1 6-25 [place] 852652-07-25 08:03:00 Test Item Value Reference Range Interpretation Comments Total Protein (test code = Total 6.7 6.4-8.4 Protein) [facility]2022-07-25 08:03:00 Test Item Value Reference Range Interpretation Comments Albumin Lvl (test code = Albumin Lvl) 3.2 3.5-5.0 [place] 852652-07-25 08:03:00 Test Item Value Reference Range Interpretation Comments Globulin (test code = Globulin) 3.5 2.7-4.2 [place] 852652-07-25 08:03:00 Test Item Value Reference Range Interpretation Comments A/G Ratio (test code = A/G Ratio) 0.9 1 0.7-1.6 [place] 852652-07-25 08:03:00 Test Item Value Reference Range Interpretation Comments ALT (test code = ALT) 19 See_Comment [Auto mated message] The system which ge nerated this result transmit lavon reference range : <=65. The reference range was not used to interpr et this result as dionne l/abnormal. [facility] [employer] [id number] 08:03:00 Test Item Value Reference Range Interpretation Comments AST (test code = AST) 26 See_Comment [Auto mated message] The system which ge nerated this result transmit lavon reference range : <=37. The reference range was not used to interpr et this result as dionne l/abnormal. [facility] [id number] 08:03:00 Test Item Value Reference Range Interpretation Comments Alk Phos (test code = Alk Phos) 56 39-136 [facility] [id number] 08:03:00 Test Item Value Reference Range Interpretation Comments Bili Total (test code = Bili Total) 1.0 0.2-1.3 [facility] [id number] 08:03:00 Test Item Value Reference Range Interpretation Comments eGFR (test code = eGFR) 67 [facility] [id number] 08:03:00 Test Item Value Reference Range Interpretation Comments Magnesium Lvl (test code = Magnesium 1.9 1.8-2.4 Lvl) [facility] [id number] 08:03:00 Test Item Value Reference Range Interpretation Comments Procalcitonin Lvl (test no gt See_Comment [Au tomated message] code = Procalcitonin Lvl) Th e system which generated this result transmitted ref erence range: <=0.10. The reference range was not used to interpr et this result as normal/abnormal . [facility] [id number] 08:03:00 Test Item Value Reference Range Interpretation Comments LDH (test code = LDH) 354 98-192 [facility]villeLqqjfqhQTUQOTZKUK6608-82-44 08:03:00 Test Item Value Reference Range Interpretation Comments WBC (test code = WBC) 7.5 3.7-10.4 [facility] GreenvilleQhsfnzwBYQLTNBRBU8015-44-70 08:03:00 Test Item Value Reference Range Interpretation Comments RBC (test code = RBC) 3.44 4.20-5.40 [place] [address]-07-25 08:03:00 Test Item Value Reference Range Interpretation Comments Hgb (test code = Hgb) 8.3 12.0-16.0 [facility] GreenvilleAnckqvlSJRYYRWSHD2776-53-77 08:03:00 Test Item Value Reference Range Interpretation Comments Hct (test code = Hct) 26.2 36.0-48.0 [place] 778932-07-25 08:03:00 Test Item Value Reference Range Interpretation Comments MCV (test code = MCV) 76.1 80.0-98.0 [place] 778932-07-25 08:03:00 Test Item Value Reference Range Interpretation Comments MCH (test code = MCH) 24.0 pg 27.0-31.0 [place] 778932-07-25 08:03:00 Test Item Value Reference Range Interpretation Comments MCHC (test code = MCHC) 31.6 32.0-36.0 [place] 778932-07-25 08:03:00 Test Item Value Reference Range Interpretation Comments RDW (test code = RDW) 20.9 11.5-14.5 [place] 778932-07-25 08:03:00 Test Item Value Reference Range Interpretation Comments Platelet (test code = Platelet) 289 133-450 [facility] CenterIetenacOHBGOTOXGN5065-62-30 08:03:00 Test Item Value Reference Range Interpretation Comments MPV (test code = MPV) 7.5 7.4-10.4 [place] 778932-07-25 08:03:00 Test Item Value Reference Range Interpretation Comments Segs (test code = Segs) 94.0 45.0-75.0 [place] 778932-07-25 08:03:00 Test Item Value Reference Range Interpretation Comments Lymphocytes (test code = Lymphocytes) 4.3 20.0-40.0 [place] 778932-07-25 08:03:00 Test Item Value Reference Range Interpretation Comments Monocytes (test code = Monocytes) 1.6 2.0-12.0 [place] 778932-07-25 08:03:00 Test Item Value Reference Range Interpretation Comments Basophils (test code = 0.1 See_Comment [Aut omated message] The Basophils) system which ge nerated this result tra nsmitted reference range : <=1.0. The reference r hugo was not used to int erpret this result as normal/abnormal . [place] 778932-07-25 08:03:00 Test Item Value Reference Range Interpretation Comments Neutrophils # (test code = Neutrophils 7.0 1.5-8.1 #) [facility] TexasSfwbxvyBPLDEDHLOP7846-33-05 08:03:00 Test Item Value Reference Range Interpretation Comments Lymphocytes # (test code = Lymphocytes 0.3 1.0-5.5 #) [facility]URLBCEEKZC2696-65-70 08:03:00 Test Item Value Reference Range Interpretation Comments Monocytes # (test code 0.1 See_Comment [Aut omated message] The = Monocytes #) system which generated this result tra nsmitted reference range : <=0.8. The reference r hugo was not used to int erpret this result as normal/abnormal . [facility] GreenvilleOzepmgnHAVDQAGTVK7874-23-25 08:03:00 Test Item Value Reference Range Interpretation Comments Microcyte (test code = 1+ *ABN*(06/13/22 Microcyte) 3:03 AM) [facility]villePre[facility] [id number] 08:03:00 Test Item Value Reference Range Interpretation Comments HS Troponin I 1 Hr (test code = HS 50 Troponin I 1 Hr) [facility]ville[facility] [id number] 08:03:00 Test Item Value Reference Range Interpretation Comments HS Troponin I 0 to 1 See Note 5(06/13/22 Hour Delta (test code = 3:03 AM) HS Troponin I 0 to 1 Hour Delta) [facility] TexasFreedom Scientific Holdings, [id number] 08:03:00 Test Item Value Reference Range Interpretation Comments Glucose Lvl (test code = Glucose Lvl) 142 70-99 [facility] [id number] 08:03:00 Test Item Value Reference Range Interpretation Comments BUN (test code = BUN) 21 - [facility] TexasFre[facility] Holdings, [id number] 08:03:00 Test Item Value Reference Range Interpretation Comments Creatinine Lvl (test code = Creatinine 0.84 0.50-1.40 Lvl) [facility]Fre[facility] Holdings, [id number] 08:03:00 Test Item Value Reference Range Interpretation Comments Sodium Lvl (test code = Sodium Lvl) 133 135-145 [facility] TexasFre[facility] Scientific Holdings, LLCUFRJL2664-01-15 08:03:00 Test Item Value Reference Range Interpretation Comments Potassium Lvl (test code = Potassium 4.4 3.5-5.1 Lvl) [facility]Fre[facility] Holdings, [id number] 08:03:00 Test Item Value Reference Range Interpretation Comments Chloride Lvl (test code = Chloride Lvl) 98 95-109 [facility]2022-07-25 08:03:00 Test Item Value Reference Range Interpretation Comments CO2 (test code = CO2) 25 24-32 [place] 852652-07-25 08:03:00 Test Item Value Reference Range Interpretation Comments AGAP (test code = AGAP) 14.4 10.0-20.0 [place] 852652-07-25 08:03:00 Test Item Value Reference Range Interpretation Comments Calcium Lvl (test code = Calcium Lvl) 9.1 8.5-10.5 [place] 852652-07-25 08:03:00 Test Item Value Reference Range Interpretation Comments B/C Ratio (test code = B/C Ratio) 25 1 6-25 [place] 852652-07-25 08:03:00 Test Item Value Reference Range Interpretation Comments Total Protein (test code = Total 6.7 6.4-8.4 Protein) [place] 852652-07-25 08:03:00 Test Item Value Reference Range Interpretation Comments Albumin Lvl (test code = Albumin Lvl) 3.2 3.5-5.0 [place] 852652-07-25 08:03:00 Test Item Value Reference Range Interpretation Comments Globulin (test code = Globulin) 3.5 2.7-4.2 [place] 852652-07-25 08:03:00 Test Item Value Reference Range Interpretation Comments A/G Ratio (test code = A/G Ratio) 0.9 1 0.7-1.6 [place] 852652-07-25 08:03:00 Test Item Value Reference Range Interpretation Comments ALT (test code = ALT) 19 See_Comment [Auto mated message] The system which ge nerated this result transmit lavon reference range : <=65. The reference range was not used to interpr et this result as dionne l/abnormal. [facility] [id number] 08:03:00 Test Item Value Reference Range Interpretation Comments AST (test code = AST) 26 See_Comment [Auto mated message] The system which ge nerated this result transmit lavon reference range : <=37. The reference range was not used to interpr et this result as dionne l/abnormal. [place] 852652-07-25 08:03:00 Test Item Value Reference Range Interpretation Comments Alk Phos (test code = Alk Phos) 56 39-136 [place] 852652-07-25 08:03:00 Test Item Value Reference Range Interpretation Comments Bili Total (test code = Bili Total) 1.0 0.2-1.3 [place] 852652-07-25 08:03:00 Test Item Value Reference Range Interpretation Comments eGFR (test code = eGFR) 67 [place] 852652-07-25 08:03:00 Test Item Value Reference Range Interpretation Comments Magnesium Lvl (test code = Magnesium 1.9 1.8-2.4 Lvl) [place] 852652-07-25 08:03:00 Test Item Value Reference Range Interpretation Comments Procalcitonin Lvl (test no gt See_Comment [Au tomated message] code = Procalcitonin Lvl) e system which generated this result transmitted ref erence range: <=0.10. The reference range was not used to interpr et this result as normal/abnormal . [place] 852652-07-25 08:03:00 Test Item Value Reference Range Interpretation Comments LDH (test code = LDH) 354 98-192 [facility] CenterGbghddnCCIQHELZIS6367-63-74 08:03:00 Test Item Value Reference Range Interpretation Comments WBC (test code = WBC) 7.5 3.7-10.4 [place] 778932-07-25 08:03:00 Test Item Value Reference Range Interpretation Comments RBC (test code = RBC) 3.44 4.20-5.40 [place] 778932-07-25 08:03:00 Test Item Value Reference Range Interpretation Comments Hgb (test code = Hgb) 8.3 12.0-16.0 [place] [address]-07-25 08:03:00 Test Item Value Reference Range Interpretation Comments Hct (test code = Hct) 26.2 36.0-48.0 [place] [address]-07-25 08:03:00 Test Item Value Reference Range Interpretation Comments MCV (test code = MCV) 76.1 80.0-98.0 [place] [address]-07-25 08:03:00 Test Item Value Reference Range Interpretation Comments MCH (test code = MCH) 24.0 pg 27.0-31.0 [place] 778932-07-25 08:03:00 Test Item Value Reference Range Interpretation Comments MCHC (test code = MCHC) 31.6 32.0-36.0 [place] 778932-07-25 08:03:00 Test Item Value Reference Range Interpretation Comments RDW (test code = RDW) 20.9 11.5-14.5 [place] 778932-07-25 08:03:00 Test Item Value Reference Range Interpretation Comments Platelet (test code = Platelet) 289 133-450 [facility] CenterHbyheyhHGYZOENKUK6779-60-70 08:03:00 Test Item Value Reference Range Interpretation Comments MPV (test code = MPV) 7.5 7.4-10.4 [place] 778932-07-25 08:03:00 Test Item Value Reference Range Interpretation Comments Segs (test code = Segs) 94.0 45.0-75.0 [place] 778932-07-25 08:03:00 Test Item Value Reference Range Interpretation Comments Lymphocytes (test code = Lymphocytes) 4.3 20.0-40.0 [place] 778932-07-25 08:03:00 Test Item Value Reference Range Interpretation Comments Monocytes (test code = Monocytes) 1.6 2.0-12.0 [place] 778932-07-25 08:03:00 Test Item Value Reference Range Interpretation Comments Basophils (test code = 0.1 See_Comment [Aut omated message] The Basophils) system which ge nerated this result tra nsmitted reference range : <=1.0. The reference r hugo was not used to int erpret this result as normal/abnormal . [facility] CenterEyuxlefYIAVIVMNVW3085-75-69 08:03:00 Test Item Value Reference Range Interpretation Comments Neutrophils # (test code = Neutrophils 7.0 1.5-8.1 #) [place] 778932-07-25 08:03:00 Test Item Value Reference Range Interpretation Comments Lymphocytes # (test code = Lymphocytes 0.3 1.0-5.5 #) [place] 778932-07-25 08:03:00 Test Item Value Reference Range Interpretation Comments Monocytes # (test code 0.1 See_Comment [Aut omated message] The = Monocytes #) system which generated this result tra nsmitted reference range : <=0.8. The reference r hugo was not used to int erpret this result as normal/abnormal . [facility]CzrgznhIQJXYWEOGH0046-74-03 08:03:00 Test Item Value Reference Range Interpretation Comments Microcyte (test code = 1+ *ABN*(06/13/22 Microcyte) 3:03 AM) [facility] [id number] 08:03:00 Test Item Value Reference Range Interpretation Comments HS Troponin I 1 Hr (test code = HS 50 Troponin I 1 Hr) [facility] [id number] 08:03:00 Test Item Value Reference Range Interpretation Comments HS Troponin I 0 to 1 See Note 5(06/13/22 Hour Delta (test code = 3:03 AM) HS Troponin I 0 to 1 Hour Delta) [facility]villeTri[facility] [id number] 08:03:00 Test Item Value Reference Range Interpretation Comments Glucose Lvl (test code = Glucose Lvl) 142 70-99 [facility] [id number] 08:03:00 Test Item Value Reference Range Interpretation Comments BUN (test code = BUN) 21 7-22 [facility] [id number] 08:03:00 Test Item Value Reference Range Interpretation Comments Creatinine Lvl (test code = Creatinine 0.84 0.50-1.40 Lvl) [facility]2022-07-25 08:03:00 Test Item Value Reference Range Interpretation Comments Sodium Lvl (test code = Sodium Lvl) 133 135-145 [facility] [id number] 08:03:00 Test Item Value Reference Range Interpretation Comments Potassium Lvl (test code = Potassium 4.4 3.5-5.1 Lvl) [facility] [id number] 08:03:00 Test Item Value Reference Range Interpretation Comments Chloride Lvl (test code = Chloride Lvl) 98 95-109 [facility]2022-07-25 08:03:00 Test Item Value Reference Range Interpretation Comments CO2 (test code = CO2) 25 24-32 [facility] [id number] 08:03:00 Test Item Value Reference Range Interpretation Comments AGAP (test code = AGAP) 14.4 10.0-20.0 [facility] [employer] [id number] 08:03:00 Test Item Value Reference Range Interpretation Comments Calcium Lvl (test code = Calcium Lvl) 9.1 8.5-10.5 [facility] [id number] 08:03:00 Test Item Value Reference Range Interpretation Comments B/C Ratio (test code = B/C Ratio) 25 1 6-25 [facility] [employer] [id number] 08:03:00 Test Item Value Reference Range Interpretation Comments Total Protein (test code = Total 6.7 6.4-8.4 Protein) [facility] [employer] [id number] 08:03:00 Test Item Value Reference Range Interpretation Comments Albumin Lvl (test code = Albumin Lvl) 3.2 3.5-5.0 [facility] [employer] [id number] 08:03:00 Test Item Value Reference Range Interpretation Comments Globulin (test code = Globulin) 3.5 2.7-4.2 [facility] [employer] [id number] 08:03:00 Test Item Value Reference Range Interpretation Comments A/G Ratio (test code = A/G Ratio) 0.9 1 0.7-1.6 [facility] [employer] [id number] 08:03:00 Test Item Value Reference Range Interpretation Comments ALT (test code = ALT) 19 See_Comment [Auto mated message] The system which ge nerated this result transmit lavon reference range : <=65. The reference range was not used to interpr et this result as dionne l/abnormal. [facility] [employer] [id number] 08:03:00 Test Item Value Reference Range Interpretation Comments AST (test code = AST) 26 See_Comment [Auto mated message] The system which ge nerated this result transmit lavon reference range : <=37. The reference range was not used to interpr et this result as dionne l/abnormal. [facility] [employer] [id number] 08:03:00 Test Item Value Reference Range Interpretation Comments Alk Phos (test code = Alk Phos) 56 39-136 [facility] [employer] [id number] 08:03:00 Test Item Value Reference Range Interpretation Comments Bili Total (test code = Bili Total) 1.0 0.2-1.3 [place] 852652-07-25 08:03:00 Test Item Value Reference Range Interpretation Comments eGFR (test code = eGFR) 67 [place] 852652-07-25 08:03:00 Test Item Value Reference Range Interpretation Comments Magnesium Lvl (test code = Magnesium 1.9 1.8-2.4 Lvl) [place] 852652-07-25 08:03:00 Test Item Value Reference Range Interpretation Comments Procalcitonin Lvl (test no gt See_Comment [Au tomated message] code = Procalcitonin Lvl) e system which generated this result transmitted ref erence range: <=0.10. The reference range was not used to interpr et this result as normal/abnormal . [place] 852652-07-25 08:03:00 Test Item Value Reference Range Interpretation Comments LDH (test code = LDH) 354 98-192 [place] 778932-07-25 08:03:00 Test Item Value Reference Range Interpretation Comments WBC (test code = WBC) 7.5 3.7-10.4 [place] [address]-07-25 08:03:00 Test Item Value Reference Range Interpretation Comments RBC (test code = RBC) 3.44 4.20-5.40 [place] [address]-07-25 08:03:00 Test Item Value Reference Range Interpretation Comments Hgb (test code = Hgb) 8.3 12.0-16.0 [place] [address]-07-25 08:03:00 Test Item Value Reference Range Interpretation Comments Hct (test code = Hct) 26.2 36.0-48.0 [place] [address]-07-25 08:03:00 Test Item Value Reference Range Interpretation Comments MCV (test code = MCV) 76.1 80.0-98.0 [place] [address]-07-25 08:03:00 Test Item Value Reference Range Interpretation Comments MCH (test code = MCH) 24.0 pg 27.0-31.0 [place] [address]-07-25 08:03:00 Test Item Value Reference Range Interpretation Comments MCHC (test code = MCHC) 31.6 32.0-36.0 [place] [address]-07-25 08:03:00 Test Item Value Reference Range Interpretation Comments RDW (test code = RDW) 20.9 11.5-14.5 [place] 778932-07-25 08:03:00 Test Item Value Reference Range Interpretation Comments Platelet (test code = Platelet) 289 133-450 [place] 778932-07-25 08:03:00 Test Item Value Reference Range Interpretation Comments MPV (test code = MPV) 7.5 7.4-10.4 [place] [address]-07-25 08:03:00 Test Item Value Reference Range Interpretation Comments Segs (test code = Segs) 94.0 45.0-75.0 [place] [address]-07-25 08:03:00 Test Item Value Reference Range Interpretation Comments Lymphocytes (test code = Lymphocytes) 4.3 20.0-40.0 [place] [address]-07-25 08:03:00 Test Item Value Reference Range Interpretation Comments Monocytes (test code = Monocytes) 1.6 2.0-12.0 [place] [address]-07-25 08:03:00 Test Item Value Reference Range Interpretation Comments Basophils (test code = 0.1 See_Comment [Aut omated message] The Basophils) system which ge nerated this result tra nsmitted reference range : <=1.0. The reference r hugo was not used to int erpret this result as normal/abnormal . [place] [address]-07-25 08:03:00 Test Item Value Reference Range Interpretation Comments Neutrophils # (test code = Neutrophils 7.0 1.5-8.1 #) [place] [address]-07-25 08:03:00 Test Item Value Reference Range Interpretation Comments Lymphocytes # (test code = Lymphocytes 0.3 1.0-5.5 #) [place] [address]-07-25 08:03:00 Test Item Value Reference Range Interpretation Comments Monocytes # (test code 0.1 See_Comment [Aut omated message] The = Monocytes #) system which generated this result tra nsmitted reference range : <=0.8. The reference r hugo was not used to int erpret this result as normal/abnormal . [place] [address]-07-25 08:03:00 Test Item Value Reference Range Interpretation Comments Microcyte (test code = 1+ *ABN*(06/13/22 Microcyte) 3:03 AM) [facility] [employer] [id number] 08:03:00 Test Item Value Reference Range Interpretation Comments HS Troponin I 1 Hr (test code = HS 50 Troponin I 1 Hr) [facility] [facility] [id number] 08:03:00 Test Item Value Reference Range Interpretation Comments HS Troponin I 0 to 1 See Note 5(06/13/22 Hour Delta (test code = 3:03 AM) HS Troponin I 0 to 1 Hour Delta) [facility] [employer] [id number] 08:03:00 Test Item Value Reference Range Interpretation Comments Glucose Lvl (test code = Glucose Lvl) 142 70-99 [facility] [employer] [id number] 08:03:00 Test Item Value Reference Range Interpretation Comments BUN (test code = BUN) 21 - [facility] [employer] [id number] 08:03:00 Test Item Value Reference Range Interpretation Comments Creatinine Lvl (test code = Creatinine 0.84 0.50-1.40 Lvl) [facility] [employer] [id number] 08:03:00 Test Item Value Reference Range Interpretation Comments Sodium Lvl (test code = Sodium Lvl) 133 135-145 [facility] [employer] [id number] 08:03:00 Test Item Value Reference Range Interpretation Comments Potassium Lvl (test code = Potassium 4.4 3.5-5.1 Lvl) [facility] [employer] [id number] 08:03:00 Test Item Value Reference Range Interpretation Comments Chloride Lvl (test code = Chloride Lvl) 98 95-109 [facility] [employer] [id number] 08:03:00 Test Item Value Reference Range Interpretation Comments CO2 (test code = CO2) 25 24-32 [facility] [employer] [id number] 08:03:00 Test Item Value Reference Range Interpretation Comments AGAP (test code = AGAP) 14.4 10.0-20.0 [facility] [employer]2022-07-25 08:03:00 Test Item Value Reference Range Interpretation Comments Calcium Lvl (test code = Calcium Lvl) 9.1 8.5-10.5 [facility] [employer] [id number] 08:03:00 Test Item Value Reference Range Interpretation Comments B/C Ratio (test code = B/C Ratio) 25 1 6-25 [facility] [employer] [id number] 08:03:00 Test Item Value Reference Range Interpretation Comments Total Protein (test code = Total 6.7 6.4-8.4 Protein) [facility] [id number] 08:03:00 Test Item Value Reference Range Interpretation Comments Albumin Lvl (test code = Albumin Lvl) 3.2 3.5-5.0 [facility] [employer] [id number] 08:03:00 Test Item Value Reference Range Interpretation Comments Globulin (test code = Globulin) 3.5 2.7-4.2 [facility] [id number] 08:03:00 Test Item Value Reference Range Interpretation Comments A/G Ratio (test code = A/G Ratio) 0.9 1 0.7-1.6 [facility] [id number] 08:03:00 Test Item Value Reference Range Interpretation Comments ALT (test code = ALT) 19 See_Comment [Auto mated message] The system which ge nerated this result transmit lavon reference range : <=65. The reference range was not used to interpr et this result as dionne l/abnormal. [facility] [employer] [id number] 08:03:00 Test Item Value Reference Range Interpretation Comments AST (test code = AST) 26 See_Comment [Auto mated message] The system which ge nerated this result transmit lavon reference range : <=37. The reference range was not used to interpr et this result as dionne l/abnormal. [facility] [employer] [id number] 08:03:00 Test Item Value Reference Range Interpretation Comments Alk Phos (test code = Alk Phos) 56 39-136 [facility] [employer] [id number] 08:03:00 Test Item Value Reference Range Interpretation Comments Bili Total (test code = Bili Total) 1.0 0.2-1.3 [facility] [employer] [id number] 08:03:00 Test Item Value Reference Range Interpretation Comments eGFR (test code = eGFR) 67 [facility] [id number] 08:03:00 Test Item Value Reference Range Interpretation Comments Magnesium Lvl (test code = Magnesium 1.9 1.8-2.4 Lvl) [facility] [id number] 08:03:00 Test Item Value Reference Range Interpretation Comments Procalcitonin Lvl (test no gt See_Comment [Au tomated message] code = Procalcitonin Lvl) Th e system which generated this result transmitted ref erence range: <=0.10. The reference range was not used to interpr et this result as normal/abnormal . [facility] [id number] 08:03:00 Test Item Value Reference Range Interpretation Comments LDH (test code = LDH) 354 98-192 [facility] CenterCkkjajrAMNGYSIYAI5078-13-43 08:03:00 Test Item Value Reference Range Interpretation Comments WBC (test code = WBC) 7.5 3.7-10.4 [facility] CenterIlwjcmoWDGRRKVLKE0875-15-61 08:03:00 Test Item Value Reference Range Interpretation Comments RBC (test code = RBC) 3.44 4.20-5.40 [facility] CenterLcwsufdNETIGPOTRN1139-49-24 08:03:00 Test Item Value Reference Range Interpretation Comments Hgb (test code = Hgb) 8.3 12.0-16.0 [facility] CenterRcimvxvSDFAUNFVVX4392-49-20 08:03:00 Test Item Value Reference Range Interpretation Comments Hct (test code = Hct) 26.2 36.0-48.0 [facility] CenterEjizllhAWYRGQWBYN2148-05-30 08:03:00 Test Item Value Reference Range Interpretation Comments MCV (test code = MCV) 76.1 80.0-98.0 [facility] CenterRqearazYVRLTMFHOQ2019-77-75 08:03:00 Test Item Value Reference Range Interpretation Comments MCH (test code = MCH) 24.0 pg 27.0-31.0 [facility] CenterAqjgjbnTXOIBFPIST5186-71-94 08:03:00 Test Item Value Reference Range Interpretation Comments MCHC (test code = MCHC) 31.6 32.0-36.0 [place] 778932-07-25 08:03:00 Test Item Value Reference Range Interpretation Comments RDW (test code = RDW) 20.9 11.5-14.5 [facility] CenterSvzjfvcMGNOUZKSCQ2413-69-20 08:03:00 Test Item Value Reference Range Interpretation Comments Platelet (test code = Platelet) 289 133-450 [facility] CenterRugbmttYPEVWSVYBB0451-87-98 08:03:00 Test Item Value Reference Range Interpretation Comments MPV (test code = MPV) 7.5 7.4-10.4 [facility] CenterJnoukjgCCQMEVTLOO8076-30-46 08:03:00 Test Item Value Reference Range Interpretation Comments Segs (test code = Segs) 94.0 45.0-75.0 [place] 778932-07-25 08:03:00 Test Item Value Reference Range Interpretation Comments Lymphocytes (test code = Lymphocytes) 4.3 20.0-40.0 [facility] CenterSzblihvYJMJAXQQSR9152-45-78 08:03:00 Test Item Value Reference Range Interpretation Comments Monocytes (test code = Monocytes) 1.6 2.0-12.0 [facility] CenterAwtxwsjFNWSXHUZFV5954-60-44 08:03:00 Test Item Value Reference Range Interpretation Comments Basophils (test code = 0.1 See_Comment [Aut omated message] The Basophils) system which ge nerated this result tra nsmitted reference range : <=1.0. The reference r hugo was not used to int erpret this result as normal/abnormal . [facility] CenterIorzznqQTAFCCDZFL1814-95-78 08:03:00 Test Item Value Reference Range Interpretation Comments Neutrophils # (test code = Neutrophils 7.0 1.5-8.1 #) [facility] CenterNvvsooySVEJQWIPSZ5580-02-81 08:03:00 Test Item Value Reference Range Interpretation Comments Lymphocytes # (test code = Lymphocytes 0.3 1.0-5.5 #) [facility] CenterRvgosrqNKXIGRMWCB2147-79-59 08:03:00 Test Item Value Reference Range Interpretation Comments Monocytes # (test code 0.1 See_Comment [Aut omated message] The = Monocytes #) system which generated this result tra nsmitted reference range : <=0.8. The reference r hugo was not used to int erpret this result as normal/abnormal . [facility] CenterLwmjspaPCEMDZAWLD1707-36-23 08:03:00 Test Item Value Reference Range Interpretation Comments Microcyte (test code = 1+ *ABN*(06/13/22 Microcyte) 3:03 AM) [facility] [id number] 08:03:00 Test Item Value Reference Range Interpretation Comments HS Troponin I 1 Hr (test code = HS 50 Troponin I 1 Hr) [facility] [id number] 08:03:00 Test Item Value Reference Range Interpretation Comments HS Troponin I 0 to 1 See Note 5(06/13/22 Hour Delta (test code = 3:03 AM) HS Troponin I 0 to 1 Hour Delta) [place] 852652-07-25 08:03:00 Test Item Value Reference Range Interpretation Comments Glucose Lvl (test code = Glucose Lvl) 142 70-99 [place] 852652-07-25 08:03:00 Test Item Value Reference Range Interpretation Comments BUN (test code = BUN) 21 06-10 [place] 852652-07-25 08:03:00 Test Item Value Reference Range Interpretation Comments Creatinine Lvl (test code = Creatinine 0.84 0.50-1.40 Lvl) [place] 852652-07-25 08:03:00 Test Item Value Reference Range Interpretation Comments Sodium Lvl (test code = Sodium Lvl) 133 135-145 [place] 852652-07-25 08:03:00 Test Item Value Reference Range Interpretation Comments Potassium Lvl (test code = Potassium 4.4 3.5-5.1 Lvl) [facility]2022-07-25 08:03:00 Test Item Value Reference Range Interpretation Comments Chloride Lvl (test code = Chloride Lvl) 98 95-109 [place] 852652-07-25 08:03:00 Test Item Value Reference Range Interpretation Comments CO2 (test code = CO2) 25 24-32 [place] 852652-07-25 08:03:00 Test Item Value Reference Range Interpretation Comments AGAP (test code = AGAP) 14.4 10.0-20.0 [place] 852652-07-25 08:03:00 Test Item Value Reference Range Interpretation Comments Calcium Lvl (test code = Calcium Lvl) 9.1 8.5-10.5 [place] 852652-07-25 08:03:00 Test Item Value Reference Range Interpretation Comments B/C Ratio (test code = B/C Ratio) 25 1 6-25 [place] 852652-07-25 08:03:00 Test Item Value Reference Range Interpretation Comments Total Protein (test code = Total 6.7 6.4-8.4 Protein) [place] 852652-07-25 08:03:00 Test Item Value Reference Range Interpretation Comments Albumin Lvl (test code = Albumin Lvl) 3.2 3.5-5.0 [facility] [id number] 08:03:00 Test Item Value Reference Range Interpretation Comments Globulin (test code = Globulin) 3.5 2.7-4.2 [facility] [id number] 08:03:00 Test Item Value Reference Range Interpretation Comments A/G Ratio (test code = A/G Ratio) 0.9 1 0.7-1.6 [facility] [id number] 08:03:00 Test Item Value Reference Range Interpretation Comments ALT (test code = ALT) 19 See_Comment [Auto mated message] The system which ge nerated this result transmit lavon reference range : <=65. The reference range was not used to interpr et this result as dionne l/abnormal. [facility] [id number] 08:03:00 Test Item Value Reference Range Interpretation Comments AST (test code = AST) 26 See_Comment [Auto mated message] The system which ge nerated this result transmit lavon reference range : <=37. The reference range was not used to interpr et this result as dionne l/abnormal. [facility] [id number] 08:03:00 Test Item Value Reference Range Interpretation Comments Alk Phos (test code = Alk Phos) 56 39-136 [facility] [id number] 08:03:00 Test Item Value Reference Range Interpretation Comments Bili Total (test code = Bili Total) 1.0 0.2-1.3 [facility] [id number] 08:03:00 Test Item Value Reference Range Interpretation Comments eGFR (test code = eGFR) 67 [facility] [id number] 08:03:00 Test Item Value Reference Range Interpretation Comments Magnesium Lvl (test code = Magnesium 1.9 1.8-2.4 Lvl) [facility] [id number] 08:03:00 Test Item Value Reference Range Interpretation Comments Procalcitonin Lvl (test no gt See_Comment [Au tomated message] code = Procalcitonin Lvl) Th e system which generated this result transmitted ref erence range: <=0.10. The reference range was not used to interpr et this result as normal/abnormal . [facility]2022-07-25 08:03:00 Test Item Value Reference Range Interpretation Comments LDH (test code = LDH) 354 98-192 [facility] CenterYadxxlnQAJFYKFSIW3938-90-93 08:03:00 Test Item Value Reference Range Interpretation Comments WBC (test code = WBC) 7.5 3.7-10.4 [facility] CenterBkooxasKQYWZORBPU5314-37-92 08:03:00 Test Item Value Reference Range Interpretation Comments RBC (test code = RBC) 3.44 4.20-5.40 [facility] CenterAbalrwqWKCMUDMZXJ7094-73-30 08:03:00 Test Item Value Reference Range Interpretation Comments Hgb (test code = Hgb) 8.3 12.0-16.0 [facility] CenterRarttzxBHUSLEJFNS2238-17-44 08:03:00 Test Item Value Reference Range Interpretation Comments Hct (test code = Hct) 26.2 36.0-48.0 [facility] CenterPtfvkdnXNSWLPEHOJ7591-96-75 08:03:00 Test Item Value Reference Range Interpretation Comments MCV (test code = MCV) 76.1 80.0-98.0 [facility] CenterXezniaeFWRTSMGLGJ7294-60-96 08:03:00 Test Item Value Reference Range Interpretation Comments MCH (test code = MCH) 24.0 pg 27.0-31.0 [facility] CenterVrodvrwQKVYZNZEAR6975-21-89 08:03:00 Test Item Value Reference Range Interpretation Comments MCHC (test code = MCHC) 31.6 32.0-36.0 [facility] CenterHmcuuzzTHTOYGTJOQ7429-17-53 08:03:00 Test Item Value Reference Range Interpretation Comments RDW (test code = RDW) 20.9 11.5-14.5 [facility] CenterGtsqdgiRJQPJBJXHH2448-10-20 08:03:00 Test Item Value Reference Range Interpretation Comments Platelet (test code = Platelet) 289 133-450 [facility] CenterMazylnmPXVEZOZROV5634-44-81 08:03:00 Test Item Value Reference Range Interpretation Comments MPV (test code = MPV) 7.5 7.4-10.4 [place] 778932-07-25 08:03:00 Test Item Value Reference Range Interpretation Comments Segs (test code = Segs) 94.0 45.0-75.0 [facility] CenterJuyjefmJGPEHXHHTO0706-38-15 08:03:00 Test Item Value Reference Range Interpretation Comments Lymphocytes (test code = Lymphocytes) 4.3 20.0-40.0 [facility] TexasSrxlqasCCCEDVLGXQ5733-90-81 08:03:00 Test Item Value Reference Range Interpretation Comments Monocytes (test code = Monocytes) 1.6 2.0-12.0 [facility]wh[facility]prICMUHYYZAC3171-01-45 08:03:00 Test Item Value Reference Range Interpretation Comments Basophils (test code = 0.1 See_Comment [Aut omated message] The Basophils) system which ge nerated this result tra nsmitted reference range : <=1.0. The reference r hugo was not used to int erpret this result as normal/abnormal . [facility] TexasItsujwuJSSHXIWOVE3000-24-23 08:03:00 Test Item Value Reference Range Interpretation Comments Neutrophils # (test code = Neutrophils 7.0 1.5-8.1 #) [facility] CenterFpxqigfNTNPWKOJHK3621-53-75 08:03:00 Test Item Value Reference Range Interpretation Comments Lymphocytes # (test code = Lymphocytes 0.3 1.0-5.5 #) [facility]villeWpjioziKOONOEBOJS5343-22-72 08:03:00 Test Item Value Reference Range Interpretation Comments Monocytes # (test code 0.1 See_Comment [Aut omated message] The = Monocytes #) system which generated this result tra nsmitted reference range : <=0.8. The reference r hugo was not used to int erpret this result as normal/abnormal . [facility] GreenvilleWzfndcuLLETHDAHXI0861-20-59 08:03:00 Test Item Value Reference Range Interpretation Comments Microcyte (test code = 1+ *ABN*(06/13/22 Microcyte) 3:03 AM) [facility] [employer]2022-[facility] 08:03:00 Test Item Value Reference Range Interpretation Comments HS Troponin I 1 Hr (test code = HS 50 Troponin I 1 Hr) [facility] [employer]2022-07-25 08:03:00 Test Item Value Reference Range Interpretation Comments HS Troponin I 0 to 1 See Note 5(06/13/22 Hour Delta (test code = 3:03 AM) HS Troponin I 0 to 1 Hour Delta) [facility] [employer]2022-07-25 08:03:00 Test Item Value Reference Range Interpretation Comments Glucose Lvl (test code = Glucose Lvl) 142 70-99 [facility] [employer]2022-07-25 08:03:00 Test Item Value Reference Range Interpretation Comments BUN (test code = BUN) 21 7-22 [place] 852652-07-25 08:03:00 Test Item Value Reference Range Interpretation Comments Creatinine Lvl (test code = Creatinine 0.84 0.50-1.40 Lvl) [facility]2022-07-25 08:03:00 Test Item Value Reference Range Interpretation Comments Sodium Lvl (test code = Sodium Lvl) 133 135-145 [place] 852652-07-25 08:03:00 Test Item Value Reference Range Interpretation Comments Potassium Lvl (test code = Potassium 4.4 3.5-5.1 Lvl) [place] 852652-07-25 08:03:00 Test Item Value Reference Range Interpretation Comments Chloride Lvl (test code = Chloride Lvl) 98 95-109 [place] 852652-07-25 08:03:00 Test Item Value Reference Range Interpretation Comments CO2 (test code = CO2) 25 24-32 [place] 852652-07-25 08:03:00 Test Item Value Reference Range Interpretation Comments AGAP (test code = AGAP) 14.4 10.0-20.0 [place] 852652-07-25 08:03:00 Test Item Value Reference Range Interpretation Comments Calcium Lvl (test code = Calcium Lvl) 9.1 8.5-10.5 [place] 852652-07-25 08:03:00 Test Item Value Reference Range Interpretation Comments B/C Ratio (test code = B/C Ratio) 25 1 6-25 [place] 852652-07-25 08:03:00 Test Item Value Reference Range Interpretation Comments Total Protein (test code = Total 6.7 6.4-8.4 Protein) [place] 852652-07-25 08:03:00 Test Item Value Reference Range Interpretation Comments Albumin Lvl (test code = Albumin Lvl) 3.2 3.5-5.0 [place] 852652-07-25 08:03:00 Test Item Value Reference Range Interpretation Comments Globulin (test code = Globulin) 3.5 2.7-4.2 [place] 852652-07-25 08:03:00 Test Item Value Reference Range Interpretation Comments A/G Ratio (test code = A/G Ratio) 0.9 1 0.7-1.6 [facility] [employer] [id number] 08:03:00 Test Item Value Reference Range Interpretation Comments ALT (test code = ALT) 19 See_Comment [Auto mated message] The system which ge nerated this result transmit lavon reference range : <=65. The reference range was not used to interpr et this result as dionne l/abnormal. [facility] [employer] [id number] 08:03:00 Test Item Value Reference Range Interpretation Comments AST (test code = AST) 26 See_Comment [Auto mated message] The system which ge nerated this result transmit lavon reference range : <=37. The reference range was not used to interpr et this result as dionne l/abnormal. [facility] [employer] [id number] 08:03:00 Test Item Value Reference Range Interpretation Comments Alk Phos (test code = Alk Phos) 56 39-136 [facility] [employer] [id number] 08:03:00 Test Item Value Reference Range Interpretation Comments Bili Total (test code = Bili Total) 1.0 0.2-1.3 [facility] [employer] IMWGK7522-59-29 08:03:00 Test Item Value Reference Range Interpretation Comments eGFR (test code = eGFR) 67 [facility] [employer] [id number] 08:03:00 Test Item Value Reference Range Interpretation Comments Magnesium Lvl (test code = Magnesium 1.9 1.8-2.4 Lvl) [facility] [id number] 08:03:00 Test Item Value Reference Range Interpretation Comments Procalcitonin Lvl (test no gt See_Comment [Au tomated message] code = Procalcitonin Lvl) Th e system which generated this result transmitted ref erence range: <=0.10. The reference range was not used to interpr et this result as normal/abnormal . [facility] [employer] [id number] 08:03:00 Test Item Value Reference Range Interpretation Comments LDH (test code = LDH) 354 98-192 [facility] TexasTkvvaliDVCFKIWCDZ5047-94-62 08:03:00 Test Item Value Reference Range Interpretation Comments WBC (test code = WBC) 7.5 3.7-10.4 [facility]gixMRLKCBSTZY4272-43-52 08:03:00 Test Item Value Reference Range Interpretation Comments RBC (test code = RBC) 3.44 4.20-5.40 [place] 778932-07-25 08:03:00 Test Item Value Reference Range Interpretation Comments Hgb (test code = Hgb) 8.3 12.0-16.0 [place] 778932-07-25 08:03:00 Test Item Value Reference Range Interpretation Comments Hct (test code = Hct) 26.2 36.0-48.0 [place] 778932-07-25 08:03:00 Test Item Value Reference Range Interpretation Comments MCV (test code = MCV) 76.1 80.0-98.0 [place] 778932-07-25 08:03:00 Test Item Value Reference Range Interpretation Comments MCH (test code = MCH) 24.0 pg 27.0-31.0 [place] 778932-07-25 08:03:00 Test Item Value Reference Range Interpretation Comments MCHC (test code = MCHC) 31.6 32.0-36.0 [facility] CenterLwufrvpMYSHRQGZHZ0541-26-81 08:03:00 Test Item Value Reference Range Interpretation Comments RDW (test code = RDW) 20.9 11.5-14.5 [place] 778932-07-25 08:03:00 Test Item Value Reference Range Interpretation Comments Platelet (test code = Platelet) 289 133-450 [facility] CenterFmqslyvGBLBMGRRTO0103-60-46 08:03:00 Test Item Value Reference Range Interpretation Comments MPV (test code = MPV) 7.5 7.4-10.4 [place] 778932-07-25 08:03:00 Test Item Value Reference Range Interpretation Comments Segs (test code = Segs) 94.0 45.0-75.0 [place] [address]-07-25 08:03:00 Test Item Value Reference Range Interpretation Comments Lymphocytes (test code = Lymphocytes) 4.3 20.0-40.0 [place] 778932-07-25 08:03:00 Test Item Value Reference Range Interpretation Comments Monocytes (test code = Monocytes) 1.6 2.0-12.0 [place] 778932-07-25 08:03:00 Test Item Value Reference Range Interpretation Comments Basophils (test code = 0.1 See_Comment [Aut omated message] The Basophils) system which ge nerated this result tra nsmitted reference range : <=1.0. The reference r hugo was not used to int erpret this result as normal/abnormal . [facility] TexasPygmwriYIRIHDYFXH8569-96-92 08:03:00 Test Item Value Reference Range Interpretation Comments Neutrophils # (test code = Neutrophils 7.0 1.5-8.1 #) [facility] TexasYlxpgftOJZJJSNIMV7302-74-82 08:03:00 Test Item Value Reference Range Interpretation Comments Lymphocytes # (test code = Lymphocytes 0.3 1.0-5.5 #) [facility] TexasSxlkvwdPXRDAYQPYZ7771-58-42 08:03:00 Test Item Value Reference Range Interpretation Comments Monocytes # (test code 0.1 See_Comment [Aut omated message] The = Monocytes #) system which generated this result tra nsmitted reference range : <=0.8. The reference r hugo was not used to int erpret this result as normal/abnormal . [facility] TexasPudzztwSZQVQYSUOQ4386-49-48 08:03:00 Test Item Value Reference Range Interpretation Comments Microcyte (test code = 1+ *ABN*(06/13/22 Microcyte) 3:03 AM) [facility] [employer] [facility]2022-07-25 08:03:00 Test Item Value Reference Range Interpretation Comments HS Troponin I 1 Hr (test code = HS 50 Troponin I 1 Hr) [facility] [employer] [facility]2022-07-25 08:03:00 Test Item Value Reference Range Interpretation Comments HS Troponin I 0 to 1 See Note 5(06/13/22 Hour Delta (test code = 3:03 AM) HS Troponin I 0 to 1 Hour Delta) [facility] [employer]2022-07-25 08:03:00 Test Item Value Reference Range Interpretation Comments Glucose Lvl (test code = Glucose Lvl) 142 70-99 [facility] [facility] [employer]2022-07-25 08:03:00 Test Item Value Reference Range Interpretation Comments BUN (test code = BUN) 21 06-10 [facility] [employer]2022-07-25 08:03:00 Test Item Value Reference Range Interpretation Comments Creatinine Lvl (test code = Creatinine 0.84 0.50-1.40 Lvl) [facility] [employer]2022-07-25 08:03:00 Test Item Value Reference Range Interpretation Comments Sodium Lvl (test code = Sodium Lvl) 133 135-145 [facility]2022-07-25 08:03:00 Test Item Value Reference Range Interpretation Comments Potassium Lvl (test code = Potassium 4.4 3.5-5.1 Lvl) [facility]2022-07-25 08:03:00 Test Item Value Reference Range Interpretation Comments Chloride Lvl (test code = Chloride Lvl) 98 95-109 [facility]2022-07-25 08:03:00 Test Item Value Reference Range Interpretation Comments CO2 (test code = CO2) 25 24-32 [facility]2022-07-25 08:03:00 Test Item Value Reference Range Interpretation Comments AGAP (test code = AGAP) 14.4 10.0-20.0 [place] 852652-07-25 08:03:00 Test Item Value Reference Range Interpretation Comments Calcium Lvl (test code = Calcium Lvl) 9.1 8.5-10.5 [facility]2022-07-25 08:03:00 Test Item Value Reference Range Interpretation Comments B/C Ratio (test code = B/C Ratio) 25 1 6-25 [facility]2022-07-25 08:03:00 Test Item Value Reference Range Interpretation Comments Total Protein (test code = Total 6.7 6.4-8.4 Protein) [facility]2022-07-25 08:03:00 Test Item Value Reference Range Interpretation Comments Albumin Lvl (test code = Albumin Lvl) 3.2 3.5-5.0 [facility]2022-07-25 08:03:00 Test Item Value Reference Range Interpretation Comments Globulin (test code = Globulin) 3.5 2.7-4.2 [place] 852652-07-25 08:03:00 Test Item Value Reference Range Interpretation Comments A/G Ratio (test code = A/G Ratio) 0.9 1 0.7-1.6 [place] 852652-07-25 08:03:00 Test Item Value Reference Range Interpretation Comments ALT (test code = ALT) 19 See_Comment [Auto mated message] The system which ge nerated this result transmit lavon reference range : <=65. The reference range was not used to interpr et this result as dionne l/abnormal. [facility] [id number] 08:03:00 Test Item Value Reference Range Interpretation Comments AST (test code = AST) 26 See_Comment [Auto mated message] The system which ge nerated this result transmit lavon reference range : <=37. The reference range was not used to interpr et this result as dionne l/abnormal. [facility] [id number] 08:03:00 Test Item Value Reference Range Interpretation Comments Alk Phos (test code = Alk Phos) 56 39-136 [facility] [id number] 08:03:00 Test Item Value Reference Range Interpretation Comments Bili Total (test code = Bili Total) 1.0 0.2-1.3 [facility] [id number] 08:03:00 Test Item Value Reference Range Interpretation Comments eGFR (test code = eGFR) 67 [facility] [id number] 08:03:00 Test Item Value Reference Range Interpretation Comments Magnesium Lvl (test code = Magnesium 1.9 1.8-2.4 Lvl) [facility] [id number] 08:03:00 Test Item Value Reference Range Interpretation Comments Procalcitonin Lvl (test no gt See_Comment [Au tomated message] code = Procalcitonin Lvl) Th e system which generated this result transmitted ref erence range: <=0.10. The reference range was not used to interpr et this result as normal/abnormal . [facility] [id number] 08:03:00 Test Item Value Reference Range Interpretation Comments LDH (test code = LDH) 354 98-192 [facility]villeVfjcpdjAASRRICFWQ9101-22-49 08:03:00 Test Item Value Reference Range Interpretation Comments WBC (test code = WBC) 7.5 3.7-10.4 [place] [address]-07-25 08:03:00 Test Item Value Reference Range Interpretation Comments RBC (test code = RBC) 3.44 4.20-5.40 [place] 778932-07-25 08:03:00 Test Item Value Reference Range Interpretation Comments Hgb (test code = Hgb) 8.3 12.0-16.0 [place] 778932-07-25 08:03:00 Test Item Value Reference Range Interpretation Comments Hct (test code = Hct) 26.2 36.0-48.0 [place] 778932-07-25 08:03:00 Test Item Value Reference Range Interpretation Comments MCV (test code = MCV) 76.1 80.0-98.0 [place] 778932-07-25 08:03:00 Test Item Value Reference Range Interpretation Comments MCH (test code = MCH) 24.0 pg 27.0-31.0 [place] 778932-07-25 08:03:00 Test Item Value Reference Range Interpretation Comments MCHC (test code = MCHC) 31.6 32.0-36.0 [place] 778932-07-25 08:03:00 Test Item Value Reference Range Interpretation Comments RDW (test code = RDW) 20.9 11.5-14.5 [place] 778932-07-25 08:03:00 Test Item Value Reference Range Interpretation Comments Platelet (test code = Platelet) 289 133-450 [facility]EjexukqZMQPIYUXSS0833-82-04 08:03:00 Test Item Value Reference Range Interpretation Comments MPV (test code = MPV) 7.5 7.4-10.4 [place] 778932-07-25 08:03:00 Test Item Value Reference Range Interpretation Comments Segs (test code = Segs) 94.0 45.0-75.0 [place] 778932-07-25 08:03:00 Test Item Value Reference Range Interpretation Comments Lymphocytes (test code = Lymphocytes) 4.3 20.0-40.0 [place] 778932-07-25 08:03:00 Test Item Value Reference Range Interpretation Comments Monocytes (test code = Monocytes) 1.6 2.0-12.0 [place] [address]-07-25 08:03:00 Test Item Value Reference Range Interpretation Comments Basophils (test code = 0.1 See_Comment [Aut omated message] The Basophils) system which ge nerated this result tra nsmitted reference range : <=1.0. The reference r hugo was not used to int erpret this result as normal/abnormal . [place] 778932-07-25 08:03:00 Test Item Value Reference Range Interpretation Comments Neutrophils # (test code = Neutrophils 7.0 1.5-8.1 #) [facility]LeuhgewIXPVODHNGR5783-35-11 08:03:00 Test Item Value Reference Range Interpretation Comments Lymphocytes # (test code = Lymphocytes 0.3 1.0-5.5 #) [facility]villeQufsaudCNCBWGUKHV0342-30-47 08:03:00 Test Item Value Reference Range Interpretation Comments Monocytes # (test code 0.1 See_Comment [Aut omated message] The = Monocytes #) system which generated this result tra nsmitted reference range : <=0.8. The reference r hugo was not used to int erpret this result as normal/abnormal . [facility] GreenvillePisgknhALLNXVHFGM3551-11-26 08:03:00 Test Item Value Reference Range Interpretation Comments Microcyte (test code = 1+ *ABN*(06/13/22 Microcyte) 3:03 AM) [facility] [id number] 08:03:00 Test Item Value Reference Range Interpretation Comments HS Troponin I 1 Hr (test code = HS 50 Troponin I 1 Hr) [facility] [id number] 08:03:00 Test Item Value Reference Range Interpretation Comments HS Troponin I 0 to 1 See Note 5(06/13/22 Hour Delta (test code = 3:03 AM) HS Troponin I 0 to 1 Hour Delta) [facility] [employer]2022-07-25 08:03:00 Test Item Value Reference Range Interpretation Comments Glucose Lvl (test code = Glucose Lvl) 142 70-99 [facility] [employer]2022-07-25 08:03:00 Test Item Value Reference Range Interpretation Comments BUN (test code = BUN) 21 - [facility] [employer]2022-07-25 08:03:00 Test Item Value Reference Range Interpretation Comments Creatinine Lvl (test code = Creatinine 0.84 0.50-1.40 Lvl) [facility] [employer]2022-07-25 08:03:00 Test Item Value Reference Range Interpretation Comments Sodium Lvl (test code = Sodium Lvl) 133 135-145 [facility] [employer]2022-07-25 08:03:00 Test Item Value Reference Range Interpretation Comments Potassium Lvl (test code = Potassium 4.4 3.5-5.1 Lvl) [facility] [employer]2022-07-25 08:03:00 Test Item Value Reference Range Interpretation Comments Chloride Lvl (test code = Chloride Lvl) 98 95-109 [place] 852652-07-25 08:03:00 Test Item Value Reference Range Interpretation Comments CO2 (test code = CO2) 25 24-32 [place] 852652-07-25 08:03:00 Test Item Value Reference Range Interpretation Comments AGAP (test code = AGAP) 14.4 10.0-20.0 [place] [address]-07-25 08:03:00 Test Item Value Reference Range Interpretation Comments Calcium Lvl (test code = Calcium Lvl) 9.1 8.5-10.5 [place] 852652-07-25 08:03:00 Test Item Value Reference Range Interpretation Comments B/C Ratio (test code = B/C Ratio) 25 1 6-25 [place] [address]-07-25 08:03:00 Test Item Value Reference Range Interpretation Comments Total Protein (test code = Total 6.7 6.4-8.4 Protein) [place] 852652-07-25 08:03:00 Test Item Value Reference Range Interpretation Comments Albumin Lvl (test code = Albumin Lvl) 3.2 3.5-5.0 [facility] [id number] 08:03:00 Test Item Value Reference Range Interpretation Comments Globulin (test code = Globulin) 3.5 2.7-4.2 [facility] [id number] 08:03:00 Test Item Value Reference Range Interpretation Comments A/G Ratio (test code = A/G Ratio) 0.9 1 0.7-1.6 [place] [address]-07-25 08:03:00 Test Item Value Reference Range Interpretation Comments ALT (test code = ALT) 19 See_Comment [Auto mated message] The system which ge nerated this result transmit lavon reference range : <=65. The reference range was not used to interpr et this result as dionne l/abnormal. [facility] [id number] 08:03:00 Test Item Value Reference Range Interpretation Comments AST (test code = AST) 26 See_Comment [Auto mated message] The system which ge nerated this result transmit lavon reference range : <=37. The reference range was not used to interpr et this result as dionne l/abnormal. [place] 852652-07-25 08:03:00 Test Item Value Reference Range Interpretation Comments Alk Phos (test code = Alk Phos) 56 39-136 [place] 852652-07-25 08:03:00 Test Item Value Reference Range Interpretation Comments Bili Total (test code = Bili Total) 1.0 0.2-1.3 [place] 852652-07-25 08:03:00 Test Item Value Reference Range Interpretation Comments eGFR (test code = eGFR) 67 [place] 852652-07-25 08:03:00 Test Item Value Reference Range Interpretation Comments Magnesium Lvl (test code = Magnesium 1.9 1.8-2.4 Lvl) [place] 852652-07-25 08:03:00 Test Item Value Reference Range Interpretation Comments Procalcitonin Lvl (test no gt See_Comment [Au tomated message] code = Procalcitonin Lvl) e system which generated this result transmitted ref erence range: <=0.10. The reference range was not used to interpr et this result as normal/abnormal . [place] 852652-07-25 08:03:00 Test Item Value Reference Range Interpretation Comments LDH (test code = LDH) 354 98-192 [place] 778932-07-25 08:03:00 Test Item Value Reference Range Interpretation Comments WBC (test code = WBC) 7.5 3.7-10.4 [place] 778932-07-25 08:03:00 Test Item Value Reference Range Interpretation Comments RBC (test code = RBC) 3.44 4.20-5.40 [place] [address]-07-25 08:03:00 Test Item Value Reference Range Interpretation Comments Hgb (test code = Hgb) 8.3 12.0-16.0 [place] [address]-07-25 08:03:00 Test Item Value Reference Range Interpretation Comments Hct (test code = Hct) 26.2 36.0-48.0 [place] [address]-07-25 08:03:00 Test Item Value Reference Range Interpretation Comments MCV (test code = MCV) 76.1 80.0-98.0 [place] [address]-07-25 08:03:00 Test Item Value Reference Range Interpretation Comments MCH (test code = MCH) 24.0 pg 27.0-31.0 [place] 778932-07-25 08:03:00 Test Item Value Reference Range Interpretation Comments MCHC (test code = MCHC) 31.6 32.0-36.0 [place] 778932-07-25 08:03:00 Test Item Value Reference Range Interpretation Comments RDW (test code = RDW) 20.9 11.5-14.5 [place] 778932-07-25 08:03:00 Test Item Value Reference Range Interpretation Comments Platelet (test code = Platelet) 289 133-450 [place] 778932-07-25 08:03:00 Test Item Value Reference Range Interpretation Comments MPV (test code = MPV) 7.5 7.4-10.4 [place] 778932-07-25 08:03:00 Test Item Value Reference Range Interpretation Comments Segs (test code = Segs) 94.0 45.0-75.0 [place] 778932-07-25 08:03:00 Test Item Value Reference Range Interpretation Comments Lymphocytes (test code = Lymphocytes) 4.3 20.0-40.0 [place] 778932-07-25 08:03:00 Test Item Value Reference Range Interpretation Comments Monocytes (test code = Monocytes) 1.6 2.0-12.0 [place] 778932-07-25 08:03:00 Test Item Value Reference Range Interpretation Comments Basophils (test code = 0.1 See_Comment [Aut omated message] The Basophils) system which ge nerated this result tra nsmitted reference range : <=1.0. The reference r hugo was not used to int erpret this result as normal/abnormal . [facility]QdpwtczKLRUGRXLNH1827-79-98 08:03:00 Test Item Value Reference Range Interpretation Comments Neutrophils # (test code = Neutrophils 7.0 1.5-8.1 #) [place] 778932-07-25 08:03:00 Test Item Value Reference Range Interpretation Comments Lymphocytes # (test code = Lymphocytes 0.3 1.0-5.5 #) [place] 778932-07-25 08:03:00 Test Item Value Reference Range Interpretation Comments Monocytes # (test code 0.1 See_Comment [Aut omated message] The = Monocytes #) system which generated this result tra nsmitted reference range : <=0.8. The reference r hugo was not used to int erpret this result as normal/abnormal . [facility] GreenvilleBkpnuwoXDNLMMGAUI3683-19-32 08:03:00 Test Item Value Reference Range Interpretation Comments Microcyte (test code = 1+ *ABN*(06/13/22 Microcyte) 3:03 AM) [facility]villePrePay[facility] [id number] 08:03:00 Test Item Value Reference Range Interpretation Comments HS Troponin I 1 Hr (test code = HS 50 Troponin I 1 Hr) [facility]Prop[facility] [id number] 08:03:00 Test Item Value Reference Range Interpretation Comments HS Troponin I 0 to 1 See Note 5(06/13/22 Hour Delta (test code = 3:03 AM) HS Troponin I 0 to 1 Hour Delta) [facility] [id number] 08:03:00 Test Item Value Reference Range Interpretation Comments Glucose Lvl (test code = Glucose Lvl) 142 70-99 [facility] [id number] 08:03:00 Test Item Value Reference Range Interpretation Comments BUN (test code = BUN) 21 -22 [facility] [id number] 08:03:00 Test Item Value Reference Range Interpretation Comments Creatinine Lvl (test code = Creatinine 0.84 0.50-1.40 Lvl) [facility] [id number] 08:03:00 Test Item Value Reference Range Interpretation Comments Sodium Lvl (test code = Sodium Lvl) 133 135-145 [facility] [id number] 08:03:00 Test Item Value Reference Range Interpretation Comments Potassium Lvl (test code = Potassium 4.4 3.5-5.1 Lvl) [facility] [id number] 08:03:00 Test Item Value Reference Range Interpretation Comments Chloride Lvl (test code = Chloride Lvl) 98 95-109 [facility] [id number] 08:03:00 Test Item Value Reference Range Interpretation Comments CO2 (test code = CO2) 25 24-32 [facility] [id number] 08:03:00 Test Item Value Reference Range Interpretation Comments AGAP (test code = AGAP) 14.4 10.0-20.0 [facility] [id number] 08:03:00 Test Item Value Reference Range Interpretation Comments Calcium Lvl (test code = Calcium Lvl) 9.1 8.5-10.5 [place] 852652-07-25 08:03:00 Test Item Value Reference Range Interpretation Comments B/C Ratio (test code = B/C Ratio) 25 1 6-25 [facility] [id number] 08:03:00 Test Item Value Reference Range Interpretation Comments Total Protein (test code = Total 6.7 6.4-8.4 Protein) [place] 852652-07-25 08:03:00 Test Item Value Reference Range Interpretation Comments Albumin Lvl (test code = Albumin Lvl) 3.2 3.5-5.0 [facility] [id number] 08:03:00 Test Item Value Reference Range Interpretation Comments Globulin (test code = Globulin) 3.5 2.7-4.2 [facility] [id number] 08:03:00 Test Item Value Reference Range Interpretation Comments A/G Ratio (test code = A/G Ratio) 0.9 1 0.7-1.6 [facility] [id number] 08:03:00 Test Item Value Reference Range Interpretation Comments ALT (test code = ALT) 19 See_Comment [Auto mated message] The system which ge nerated this result transmit lavon reference range : <=65. The reference range was not used to interpr et this result as dionne l/abnormal. [facility] [id number] 08:03:00 Test Item Value Reference Range Interpretation Comments AST (test code = AST) 26 See_Comment [Auto mated message] The system which ge nerated this result transmit lavon reference range : <=37. The reference range was not used to interpr et this result as dionne l/abnormal. [facility] [id number] 08:03:00 Test Item Value Reference Range Interpretation Comments Alk Phos (test code = Alk Phos) 56 39-136 [facility] [id number] 08:03:00 Test Item Value Reference Range Interpretation Comments Bili Total (test code = Bili Total) 1.0 0.2-1.3 [facility]2022-07-25 08:03:00 Test Item Value Reference Range Interpretation Comments eGFR (test code = eGFR) 67 [facility]2022-07-25 08:03:00 Test Item Value Reference Range Interpretation Comments Magnesium Lvl (test code = Magnesium 1.9 1.8-2.4 Lvl) [place] 852652-07-25 08:03:00 Test Item Value Reference Range Interpretation Comments Procalcitonin Lvl (test no gt See_Comment [Au tomated message] code = Procalcitonin Lvl) Th e system which generated this result transmitted ref erence range: <=0.10. The reference range was not used to interpr et this result as normal/abnormal . [facility]2022-07-25 08:03:00 Test Item Value Reference Range Interpretation Comments LDH (test code = LDH) 354 98-192 [facility] CenterRthzbqxHDTVCGCOWH4475-96-26 08:03:00 Test Item Value Reference Range Interpretation Comments WBC (test code = WBC) 7.5 3.7-10.4 [place] 778932-07-25 08:03:00 Test Item Value Reference Range Interpretation Comments RBC (test code = RBC) 3.44 4.20-5.40 [facility] CenterJvvzwtyGMKFAYVAUW1574-43-80 08:03:00 Test Item Value Reference Range Interpretation Comments Hgb (test code = Hgb) 8.3 12.0-16.0 [place] 778932-07-25 08:03:00 Test Item Value Reference Range Interpretation Comments Hct (test code = Hct) 26.2 36.0-48.0 [place] 778932-07-25 08:03:00 Test Item Value Reference Range Interpretation Comments MCV (test code = MCV) 76.1 80.0-98.0 [place] 778932-07-25 08:03:00 Test Item Value Reference Range Interpretation Comments MCH (test code = MCH) 24.0 pg 27.0-31.0 [facility] CenterZsurkcdQPZRAELWPG2383-03-35 08:03:00 Test Item Value Reference Range Interpretation Comments MCHC (test code = MCHC) 31.6 32.0-36.0 [place] 778932-07-25 08:03:00 Test Item Value Reference Range Interpretation Comments RDW (test code = RDW) 20.9 11.5-14.5 [place] 778932-07-25 08:03:00 Test Item Value Reference Range Interpretation Comments Platelet (test code = Platelet) 289 133-450 [place] 778932-07-25 08:03:00 Test Item Value Reference Range Interpretation Comments MPV (test code = MPV) 7.5 7.4-10.4 [place] 778932-07-25 08:03:00 Test Item Value Reference Range Interpretation Comments Segs (test code = Segs) 94.0 45.0-75.0 [place] 778932-07-25 08:03:00 Test Item Value Reference Range Interpretation Comments Lymphocytes (test code = Lymphocytes) 4.3 20.0-40.0 [place] 778932-07-25 08:03:00 Test Item Value Reference Range Interpretation Comments Monocytes (test code = Monocytes) 1.6 2.0-12.0 [place] 778932-07-25 08:03:00 Test Item Value Reference Range Interpretation Comments Basophils (test code = 0.1 See_Comment [Aut omated message] The Basophils) system which ge nerated this result tra nsmitted reference range : <=1.0. The reference r hugo was not used to int erpret this result as normal/abnormal . [place] 778932-07-25 08:03:00 Test Item Value Reference Range Interpretation Comments Neutrophils # (test code = Neutrophils 7.0 1.5-8.1 #) [place] 778932-07-25 08:03:00 Test Item Value Reference Range Interpretation Comments Lymphocytes # (test code = Lymphocytes 0.3 1.0-5.5 #) [place] [address]-07-25 08:03:00 Test Item Value Reference Range Interpretation Comments Monocytes # (test code 0.1 See_Comment [Aut omated message] The = Monocytes #) system which generated this result tra nsmitted reference range : <=0.8. The reference r hugo was not used to int erpret this result as normal/abnormal . [place] 778932-07-25 08:03:00 Test Item Value Reference Range Interpretation Comments Microcyte (test code = 1+ *ABN*(06/13/22 Microcyte) 3:03 AM) [facility] [employer] [id number] 08:03:00 Test Item Value Reference Range Interpretation Comments HS Troponin I 1 Hr (test code = HS 50 Troponin I 1 Hr) [facility] [employer] [id number] 08:03:00 Test Item Value Reference Range Interpretation Comments HS Troponin I 0 to 1 See Note 5(06/13/22 Hour Delta (test code = 3:03 AM) HS Troponin I 0 to 1 Hour Delta) [facility] [employer] [id number] 08:03:00 Test Item Value Reference Range Interpretation Comments Glucose Lvl (test code = Glucose Lvl) 142 70-99 [facility] [employer] [id number] 08:03:00 Test Item Value Reference Range Interpretation Comments BUN (test code = BUN) 21 - [facility] [employer] [id number] 08:03:00 Test Item Value Reference Range Interpretation Comments Creatinine Lvl (test code = Creatinine 0.84 0.50-1.40 Lvl) [facility] [employer] [id number] 08:03:00 Test Item Value Reference Range Interpretation Comments Sodium Lvl (test code = Sodium Lvl) 133 135-145 [facility] [employer] [id number] 08:03:00 Test Item Value Reference Range Interpretation Comments Potassium Lvl (test code = Potassium 4.4 3.5-5.1 Lvl) [facility] [employer] [id number] 08:03:00 Test Item Value Reference Range Interpretation Comments Chloride Lvl (test code = Chloride Lvl) 98 95-109 [facility] [employer] [id number] 08:03:00 Test Item Value Reference Range Interpretation Comments CO2 (test code = CO2) 25 24-32 [facility] [employer] [id number] 08:03:00 Test Item Value Reference Range Interpretation Comments AGAP (test code = AGAP) 14.4 10.0-20.0 [facility] [employer] [id number] 08:03:00 Test Item Value Reference Range Interpretation Comments Calcium Lvl (test code = Calcium Lvl) 9.1 8.5-10.5 [facility] [employer] [id number] 08:03:00 Test Item Value Reference Range Interpretation Comments B/C Ratio (test code = B/C Ratio) 25 1 6-25 [place] 852652-07-25 08:03:00 Test Item Value Reference Range Interpretation Comments Total Protein (test code = Total 6.7 6.4-8.4 Protein) [place] 852652-07-25 08:03:00 Test Item Value Reference Range Interpretation Comments Albumin Lvl (test code = Albumin Lvl) 3.2 3.5-5.0 [place] 852652-07-25 08:03:00 Test Item Value Reference Range Interpretation Comments Globulin (test code = Globulin) 3.5 2.7-4.2 [place] 852652-07-25 08:03:00 Test Item Value Reference Range Interpretation Comments A/G Ratio (test code = A/G Ratio) 0.9 1 0.7-1.6 [place] 852652-07-25 08:03:00 Test Item Value Reference Range Interpretation Comments ALT (test code = ALT) 19 See_Comment [Auto mated message] The system which ge nerated this result transmit lavon reference range : <=65. The reference range was not used to interpr et this result as dionne l/abnormal. [facility] [id number] 08:03:00 Test Item Value Reference Range Interpretation Comments AST (test code = AST) 26 See_Comment [Auto mated message] The system which ge nerated this result transmit lavon reference range : <=37. The reference range was not used to interpr et this result as dionne l/abnormal. [facility] [id number] 08:03:00 Test Item Value Reference Range Interpretation Comments Alk Phos (test code = Alk Phos) 56 39-136 [place] 852652-07-25 08:03:00 Test Item Value Reference Range Interpretation Comments Bili Total (test code = Bili Total) 1.0 0.2-1.3 [place] 852652-07-25 08:03:00 Test Item Value Reference Range Interpretation Comments eGFR (test code = eGFR) 67 [place] 852652-07-25 08:03:00 Test Item Value Reference Range Interpretation Comments Magnesium Lvl (test code = Magnesium 1.9 1.8-2.4 Lvl) [facility] [id number] 08:03:00 Test Item Value Reference Range Interpretation Comments Procalcitonin Lvl (test no gt See_Comment [Au tomated message] code = Procalcitonin Lvl) Th e system which generated this result transmitted ref erence range: <=0.10. The reference range was not used to interpr et this result as normal/abnormal . [facility] [id number] 08:03:00 Test Item Value Reference Range Interpretation Comments LDH (test code = LDH) 354 98-192 [facility]ZwboqftOUKJYSEPZF2316-05-88 08:03:00 Test Item Value Reference Range Interpretation Comments WBC (test code = WBC) 7.5 3.7-10.4 [facility] CenterXegqbzxGEJDPIRBSZ1433-63-87 08:03:00 Test Item Value Reference Range Interpretation Comments RBC (test code = RBC) 3.44 4.20-5.40 [facility] CenterIylxhptPUKCYGHZUI2324-47-13 08:03:00 Test Item Value Reference Range Interpretation Comments Hgb (test code = Hgb) 8.3 12.0-16.0 [facility] CenterKjoivmiKXUDXSBIPJ0067-21-85 08:03:00 Test Item Value Reference Range Interpretation Comments Hct (test code = Hct) 26.2 36.0-48.0 [facility] CenterGpenwziBQXVPCDGRA4289-07-04 08:03:00 Test Item Value Reference Range Interpretation Comments MCV (test code = MCV) 76.1 80.0-98.0 [facility] CenterJahzfugEXQNGRYXPY5337-04-91 08:03:00 Test Item Value Reference Range Interpretation Comments MCH (test code = MCH) 24.0 pg 27.0-31.0 [facility] CenterKtyyltnRNHOXLMWCE0338-33-58 08:03:00 Test Item Value Reference Range Interpretation Comments MCHC (test code = MCHC) 31.6 32.0-36.0 [facility] CenterUfkcnatKYLHUEXFUR9251-64-60 08:03:00 Test Item Value Reference Range Interpretation Comments RDW (test code = RDW) 20.9 11.5-14.5 [facility] CenterCraiixcUISEQCMDIE0349-24-89 08:03:00 Test Item Value Reference Range Interpretation Comments Platelet (test code = Platelet) 289 133-450 [facility] CenterIecawfzHPLCWLLGOT0935-58-64 08:03:00 Test Item Value Reference Range Interpretation Comments MPV (test code = MPV) 7.5 7.4-10.4 [facility] CenterJjefklnMAWGXHNNZQ6835-11-19 08:03:00 Test Item Value Reference Range Interpretation Comments Segs (test code = Segs) 94.0 45.0-75.0 [facility] CenterIlhpxkwDXYQAGCQOS6079-23-48 08:03:00 Test Item Value Reference Range Interpretation Comments Lymphocytes (test code = Lymphocytes) 4.3 20.0-40.0 [facility] CenterTotqslmCTZJQSOQXM8957-64-63 08:03:00 Test Item Value Reference Range Interpretation Comments Monocytes (test code = Monocytes) 1.6 2.0-12.0 [facility] CenterVjcbsepXLAUJXGHPD1292-73-65 08:03:00 Test Item Value Reference Range Interpretation Comments Basophils (test code = 0.1 See_Comment [Aut omated message] The Basophils) system which ge nerated this result tra nsmitted reference range : <=1.0. The reference r hugo was not used to int erpret this result as normal/abnormal . [facility]EUWB7628[facility] 08:03:00 Test Item Value Reference Range Interpretation Comments Neutrophils # (test code = Neutrophils 7.0 1.5-8.1 #) [facility] CenterBzwhtgtSOMNWVEDFC3637-57-71 08:03:00 Test Item Value Reference Range Interpretation Comments Lymphocytes # (test code = Lymphocytes 0.3 1.0-5.5 #) [facility] CenterLpzmdbuUWKSMMLMHK5328-83-19 08:03:00 Test Item Value Reference Range Interpretation Comments Monocytes # (test code 0.1 See_Comment [Aut omated message] The = Monocytes #) system which generated this result tra nsmitted reference range : <=0.8. The reference r hugo was not used to int erpret this result as normal/abnormal . [facility] HospitalDxrfxowXBYINLFSJF1161-74-09 08:03:00 Test Item Value Reference Range Interpretation Comments Microcyte (test code = 1+ *ABN*(06/13/22 Microcyte) 3:03 AM) [facility] [id number] 08:03:00 Test Item Value Reference Range Interpretation Comments HS Troponin I 1 Hr (test code = HS 50 Troponin I 1 Hr) [facility] [id number] 08:03:00 Test Item Value Reference Range Interpretation Comments HS Troponin I 0 to 1 See Note 5(06/13/22 Hour Delta (test code = 3:03 AM) HS Troponin I 0 to 1 Hour Delta) [facility]2022-07-25 08:03:00 Test Item Value Reference Range Interpretation Comments Glucose Lvl (test code = Glucose Lvl) 142 70-99 [facility]2022-07-25 08:03:00 Test Item Value Reference Range Interpretation Comments BUN (test code = BUN) 21 - [facility]2022-07-25 08:03:00 Test Item Value Reference Range Interpretation Comments Creatinine Lvl (test code = Creatinine 0.84 0.50-1.40 Lvl) [facility]2022-07-25 08:03:00 Test Item Value Reference Range Interpretation Comments Sodium Lvl (test code = Sodium Lvl) 133 135-145 [facility]2022-07-25 08:03:00 Test Item Value Reference Range Interpretation Comments Potassium Lvl (test code = Potassium 4.4 3.5-5.1 Lvl) [facility]2022-07-25 08:03:00 Test Item Value Reference Range Interpretation Comments Chloride Lvl (test code = Chloride Lvl) 98 95-109 [facility]2022-07-25 08:03:00 Test Item Value Reference Range Interpretation Comments CO2 (test code = CO2) 25 24-32 [facility]2022-07-25 08:03:00 Test Item Value Reference Range Interpretation Comments AGAP (test code = AGAP) 14.4 10.0-20.0 [facility]2022-07-25 08:03:00 Test Item Value Reference Range Interpretation Comments Calcium Lvl (test code = Calcium Lvl) 9.1 8.5-10.5 [facility]2022-07-25 08:03:00 Test Item Value Reference Range Interpretation Comments B/C Ratio (test code = B/C Ratio) 25 1 -25 [place] 852652-07-25 08:03:00 Test Item Value Reference Range Interpretation Comments Total Protein (test code = Total 6.7 6.4-8.4 Protein) [facility]2022-07-25 08:03:00 Test Item Value Reference Range Interpretation Comments Albumin Lvl (test code = Albumin Lvl) 3.2 3.5-5.0 [facility] [id number] 08:03:00 Test Item Value Reference Range Interpretation Comments Globulin (test code = Globulin) 3.5 2.7-4.2 [facility] [id number] 08:03:00 Test Item Value Reference Range Interpretation Comments A/G Ratio (test code = A/G Ratio) 0.9 1 0.7-1.6 [facility] [id number] 08:03:00 Test Item Value Reference Range Interpretation Comments ALT (test code = ALT) 19 See_Comment [Auto mated message] The system which ge nerated this result transmit lavon reference range : <=65. The reference range was not used to interpr et this result as dionne l/abnormal. [facility] [id number] 08:03:00 Test Item Value Reference Range Interpretation Comments AST (test code = AST) 26 See_Comment [Auto mated message] The system which ge nerated this result transmit lavon reference range : <=37. The reference range was not used to interpr et this result as dionne l/abnormal. [facility] [employer] [id number] 08:03:00 Test Item Value Reference Range Interpretation Comments Alk Phos (test code = Alk Phos) 56 39-136 [facility] [id number] 08:03:00 Test Item Value Reference Range Interpretation Comments Bili Total (test code = Bili Total) 1.0 0.2-1.3 [facility] [employer] MSHYS3213-08-44 08:03:00 Test Item Value Reference Range Interpretation Comments eGFR (test code = eGFR) 67 [facility] [id number] 08:03:00 Test Item Value Reference Range Interpretation Comments Magnesium Lvl (test code = Magnesium 1.9 1.8-2.4 Lvl) [facility] [id number] 08:03:00 Test Item Value Reference Range Interpretation Comments Procalcitonin Lvl (test no gt See_Comment [Au tomated message] code = Procalcitonin Lvl) Th e system which generated this result transmitted ref erence range: <=0.10. The reference range was not used to interpr et this result as normal/abnormal . [facility]2022-07-25 08:03:00 Test Item Value Reference Range Interpretation Comments LDH (test code = LDH) 354 98-192 [facility] CenterZryfhytHIIOVRXZMC6210-43-46 08:03:00 Test Item Value Reference Range Interpretation Comments WBC (test code = WBC) 7.5 3.7-10.4 [facility] CenterQombvetNRVWWFROAP2767-60-45 08:03:00 Test Item Value Reference Range Interpretation Comments RBC (test code = RBC) 3.44 4.20-5.40 [facility] CenterKtcnjnsMTGLETNWWX4228-54-93 08:03:00 Test Item Value Reference Range Interpretation Comments Hgb (test code = Hgb) 8.3 12.0-16.0 [facility] CenterDzasfldGNOFZNDPDI4997-61-91 08:03:00 Test Item Value Reference Range Interpretation Comments Hct (test code = Hct) 26.2 36.0-48.0 [facility] CenterCpehqfpWQYPRZLUQE8596-24-15 08:03:00 Test Item Value Reference Range Interpretation Comments MCV (test code = MCV) 76.1 80.0-98.0 [facility] CenterOmbsceaOTSLVLFXQH9703-97-02 08:03:00 Test Item Value Reference Range Interpretation Comments MCH (test code = MCH) 24.0 pg 27.0-31.0 [facility] CenterAyamfkaUOVQOAUODA4492-25-02 08:03:00 Test Item Value Reference Range Interpretation Comments MCHC (test code = MCHC) 31.6 32.0-36.0 [facility] CenterIahodljOJJWIQIKRW6716-83-46 08:03:00 Test Item Value Reference Range Interpretation Comments RDW (test code = RDW) 20.9 11.5-14.5 [facility] CenterHvunsruTYDKQGJJIN9660-02-11 08:03:00 Test Item Value Reference Range Interpretation Comments Platelet (test code = Platelet) 289 133-450 [facility] CenterHiiyqjcEHCYVWATUM0408-30-00 08:03:00 Test Item Value Reference Range Interpretation Comments MPV (test code = MPV) 7.5 7.4-10.4 [facility] CenterWgmoydsNJJZYJADLY5620-61-29 08:03:00 Test Item Value Reference Range Interpretation Comments Segs (test code = Segs) 94.0 45.0-75.0 [facility] CenterIyelwfeGWSGJFHHZK2793-02-31 08:03:00 Test Item Value Reference Range Interpretation Comments Lymphocytes (test code = Lymphocytes) 4.3 20.0-40.0 [facility]EoyqbtvBEMFSAIGLQ4981-08-26 08:03:00 Test Item Value Reference Range Interpretation Comments Monocytes (test code = Monocytes) 1.6 2.0-12.0 [facility] HospitalIrqkyhtFAMPZLCRPK7949-58-70 08:03:00 Test Item Value Reference Range Interpretation Comments Basophils (test code = 0.1 See_Comment [Aut omated message] The Basophils) system which ge nerated this result tra nsmitted reference range : <=1.0. The reference r hugo was not used to int erpret this result as normal/abnormal . [facility] CenterZksriegICSOCIHNPY3859-89-00 08:03:00 Test Item Value Reference Range Interpretation Comments Neutrophils # (test code = Neutrophils 7.0 1.5-8.1 #) [facility] CenterGnupuavBFDNUEICPA2780-28-89 08:03:00 Test Item Value Reference Range Interpretation Comments Lymphocytes # (test code = Lymphocytes 0.3 1.0-5.5 #) [facility] CenterNpbtslnGVLQSXQPRY3390-72-10 08:03:00 Test Item Value Reference Range Interpretation Comments Monocytes # (test code 0.1 See_Comment [Aut omated message] The = Monocytes #) system which generated this result tra nsmitted reference range : <=0.8. The reference r hugo was not used to int erpret this result as normal/abnormal . [facility]villeLtxrecrDHTLCNDOAQ8543-95-37 08:03:00 Test Item Value Reference Range Interpretation Comments Microcyte (test code = 1+ *ABN*(06/13/22 Microcyte) 3:03 AM) [facility] [employer] 08:03:00 Test Item Value Reference Range Interpretation Comments HS Troponin I 1 Hr (test code = HS 50 Troponin I 1 Hr) [facility] [id number] 08:03:00 Test Item Value Reference Range Interpretation Comments HS Troponin I 0 to 1 See Note 5(06/13/22 Hour Delta (test code = 3:03 AM) HS Troponin I 0 to 1 Hour Delta) [facility] [id number] 08:03:00 Test Item Value Reference Range Interpretation Comments Glucose Lvl (test code = Glucose Lvl) 142 70-99 [facility]2022-07-25 08:03:00 Test Item Value Reference Range Interpretation Comments BUN (test code = BUN) 21 7-22 [facility]2022-07-25 08:03:00 Test Item Value Reference Range Interpretation Comments Creatinine Lvl (test code = Creatinine 0.84 0.50-1.40 Lvl) [facility]2022-07-25 08:03:00 Test Item Value Reference Range Interpretation Comments Sodium Lvl (test code = Sodium Lvl) 133 135-145 [place] 852652-07-25 08:03:00 Test Item Value Reference Range Interpretation Comments Potassium Lvl (test code = Potassium 4.4 3.5-5.1 Lvl) [facility]2022-07-25 08:03:00 Test Item Value Reference Range Interpretation Comments Chloride Lvl (test code = Chloride Lvl) 98 95-109 [facility]2022-07-25 08:03:00 Test Item Value Reference Range Interpretation Comments CO2 (test code = CO2) 25 24-32 [place] 852652-07-25 08:03:00 Test Item Value Reference Range Interpretation Comments AGAP (test code = AGAP) 14.4 10.0-20.0 [facility]2022-07-25 08:03:00 Test Item Value Reference Range Interpretation Comments Calcium Lvl (test code = Calcium Lvl) 9.1 8.5-10.5 [facility]2022-07-25 08:03:00 Test Item Value Reference Range Interpretation Comments B/C Ratio (test code = B/C Ratio) 25 1 6-25 [place] 852652-07-25 08:03:00 Test Item Value Reference Range Interpretation Comments Total Protein (test code = Total 6.7 6.4-8.4 Protein) [facility]2022-07-25 08:03:00 Test Item Value Reference Range Interpretation Comments Albumin Lvl (test code = Albumin Lvl) 3.2 3.5-5.0 [place] 852652-07-25 08:03:00 Test Item Value Reference Range Interpretation Comments Globulin (test code = Globulin) 3.5 2.7-4.2 [place] 852652-07-25 08:03:00 Test Item Value Reference Range Interpretation Comments A/G Ratio (test code = A/G Ratio) 0.9 1 0.7-1.6 [place] [address]-07-25 08:03:00 Test Item Value Reference Range Interpretation Comments ALT (test code = ALT) 19 See_Comment [Auto mated message] The system which ge nerated this result transmit lavon reference range : <=65. The reference range was not used to interpr et this result as dionne l/abnormal. [place] [address]-07-25 08:03:00 Test Item Value Reference Range Interpretation Comments AST (test code = AST) 26 See_Comment [Auto mated message] The system which ge nerated this result transmit lavon reference range : <=37. The reference range was not used to interpr et this result as dionne l/abnormal. [place] [address]-07-25 08:03:00 Test Item Value Reference Range Interpretation Comments Alk Phos (test code = Alk Phos) 56 39-136 [place] [address]-07-25 08:03:00 Test Item Value Reference Range Interpretation Comments Bili Total (test code = Bili Total) 1.0 0.2-1.3 [place] [address]-07-25 08:03:00 Test Item Value Reference Range Interpretation Comments eGFR (test code = eGFR) 67 [place] [address]-07-25 08:03:00 Test Item Value Reference Range Interpretation Comments Magnesium Lvl (test code = Magnesium 1.9 1.8-2.4 Lvl) [place] [address]-07-25 08:03:00 Test Item Value Reference Range Interpretation Comments Procalcitonin Lvl (test no gt See_Comment [Au tomated message] code = Procalcitonin Lvl) Th e system which generated this result transmitted ref erence range: <=0.10. The reference range was not used to interpr et this result as normal/abnormal . [place] [address]-07-25 08:03:00 Test Item Value Reference Range Interpretation Comments LDH (test code = LDH) 354 98-192 [place] 778932-07-25 08:03:00 Test Item Value Reference Range Interpretation Comments WBC (test code = WBC) 7.5 3.7-10.4 [facility] CenterTmcvjzdVIUCNMEUAM7848-62-32 08:03:00 Test Item Value Reference Range Interpretation Comments RBC (test code = RBC) 3.44 4.20-5.40 [facility] CenterWrdahtfUYWBDYDVTB2390-41-73 08:03:00 Test Item Value Reference Range Interpretation Comments Hgb (test code = Hgb) 8.3 12.0-16.0 [place] 778932-07-25 08:03:00 Test Item Value Reference Range Interpretation Comments Hct (test code = Hct) 26.2 36.0-48.0 [facility] CenterOamixlyXENWKUTRDH0317-00-31 08:03:00 Test Item Value Reference Range Interpretation Comments MCV (test code = MCV) 76.1 80.0-98.0 [place] 778932-07-25 08:03:00 Test Item Value Reference Range Interpretation Comments MCH (test code = MCH) 24.0 pg 27.0-31.0 [facility] CenterGauehwxQXTRJBNPCZ9080-59-05 08:03:00 Test Item Value Reference Range Interpretation Comments MCHC (test code = MCHC) 31.6 32.0-36.0 [facility] CenterTzbbikcSOBUPCYMAM4156-12-25 08:03:00 Test Item Value Reference Range Interpretation Comments RDW (test code = RDW) 20.9 11.5-14.5 [facility] CenterRnjtfvxKTPKYELWTR6306-42-98 08:03:00 Test Item Value Reference Range Interpretation Comments Platelet (test code = Platelet) 289 133-450 [facility] CenterRcldzezHDNDAOOLLE5940-07-84 08:03:00 Test Item Value Reference Range Interpretation Comments MPV (test code = MPV) 7.5 7.4-10.4 [facility] CenterAgqecboBKYYMBWVYD8251-15-86 08:03:00 Test Item Value Reference Range Interpretation Comments Segs (test code = Segs) 94.0 45.0-75.0 [place] 778932-07-25 08:03:00 Test Item Value Reference Range Interpretation Comments Lymphocytes (test code = Lymphocytes) 4.3 20.0-40.0 [place] 778932-07-25 08:03:00 Test Item Value Reference Range Interpretation Comments Monocytes (test code = Monocytes) 1.6 2.0-12.0 [place] 778932-07-25 08:03:00 Test Item Value Reference Range Interpretation Comments Basophils (test code = 0.1 See_Comment [Aut omated message] The Basophils) system which ge nerated this result tra nsmitted reference range : <=1.0. The reference r hugo was not used to int erpret this result as normal/abnormal . [facility] TexasYkifdekZGYQUEILEX[facility] 08:03:00 Test Item Value Reference Range Interpretation Comments Neutrophils # (test code = Neutrophils 7.0 1.5-8.1 #) [facility] TexasLjstvgvKHRIPAKMQP0847-54-45 08:03:00 Test Item Value Reference Range Interpretation Comments Lymphocytes # (test code = Lymphocytes 0.3 1.0-5.5 #) [facility]villeWdjxhyrAGEIVHKLLH5901-90-24 08:03:00 Test Item Value Reference Range Interpretation Comments Monocytes # (test code 0.1 See_Comment [Aut omated message] The = Monocytes #) system which generated this result tra nsmitted reference range : <=0.8. The reference r hugo was not used to int erpret this result as normal/abnormal . [facility]villeXmifzmdZSFUZHJWBE2635-92-69 08:03:00 Test Item Value Reference Range Interpretation Comments Microcyte (test code = 1+ *ABN*(06/13/22 Microcyte) 3:03 AM) [facility] [employer]2022-[facility] 08:03:00 Test Item Value Reference Range Interpretation Comments HS Troponin I 1 Hr (test code = HS 50 Troponin I 1 Hr) [facility] [employer] [facility]2022-07-25 08:03:00 Test Item Value Reference Range Interpretation Comments HS Troponin I 0 to 1 See Note 5(06/13/22 Hour Delta (test code = 3:03 AM) HS Troponin I 0 to 1 Hour Delta) [facility] [employer]2022-07-25 08:03:00 Test Item Value Reference Range Interpretation Comments Glucose Lvl (test code = Glucose Lvl) 142 70-99 [facility]Fre[facility], LLCTZPOU2162-79-39 08:03:00 Test Item Value Reference Range Interpretation Comments BUN (test code = BUN) 21 7- [facility]Fre[facility] Holdings, LLCGZGLE9836-73-97 08:03:00 Test Item Value Reference Range Interpretation Comments Creatinine Lvl (test code = Creatinine 0.84 0.50-1.40 Lvl) [place] 852652-07-25 08:03:00 Test Item Value Reference Range Interpretation Comments Sodium Lvl (test code = Sodium Lvl) 133 135-145 [place] 852652-07-25 08:03:00 Test Item Value Reference Range Interpretation Comments Potassium Lvl (test code = Potassium 4.4 3.5-5.1 Lvl) [place] 852652-07-25 08:03:00 Test Item Value Reference Range Interpretation Comments Chloride Lvl (test code = Chloride Lvl) 98 95-109 [place] 852652-07-25 08:03:00 Test Item Value Reference Range Interpretation Comments CO2 (test code = CO2) 25 24-32 [place] 852652-07-25 08:03:00 Test Item Value Reference Range Interpretation Comments AGAP (test code = AGAP) 14.4 10.0-20.0 [place] 852652-07-25 08:03:00 Test Item Value Reference Range Interpretation Comments Calcium Lvl (test code = Calcium Lvl) 9.1 8.5-10.5 [place] 852652-07-25 08:03:00 Test Item Value Reference Range Interpretation Comments B/C Ratio (test code = B/C Ratio) 25 1 6-25 [place] 852652-07-25 08:03:00 Test Item Value Reference Range Interpretation Comments Total Protein (test code = Total 6.7 6.4-8.4 Protein) [place] 852652-07-25 08:03:00 Test Item Value Reference Range Interpretation Comments Albumin Lvl (test code = Albumin Lvl) 3.2 3.5-5.0 [place] 852652-07-25 08:03:00 Test Item Value Reference Range Interpretation Comments Globulin (test code = Globulin) 3.5 2.7-4.2 [place] 852652-07-25 08:03:00 Test Item Value Reference Range Interpretation Comments A/G Ratio (test code = A/G Ratio) 0.9 1 0.7-1.6 [place] 852652-07-25 08:03:00 Test Item Value Reference Range Interpretation Comments ALT (test code = ALT) 19 See_Comment [Auto mated message] The system which ge nerated this result transmit lavon reference range : <=65. The reference range was not used to interpr et this result as dionne l/abnormal. [facility] [employer] [id number] 08:03:00 Test Item Value Reference Range Interpretation Comments AST (test code = AST) 26 See_Comment [Auto mated message] The system which ge nerated this result transmit lavon reference range : <=37. The reference range was not used to interpr et this result as dionne l/abnormal. [facility] [employer] [id number] 08:03:00 Test Item Value Reference Range Interpretation Comments Alk Phos (test code = Alk Phos) 56 39-136 [facility] [employer] [id number] 08:03:00 Test Item Value Reference Range Interpretation Comments Bili Total (test code = Bili Total) 1.0 0.2-1.3 [facility] [employer] [id number] 08:03:00 Test Item Value Reference Range Interpretation Comments eGFR (test code = eGFR) 67 [facility] [employer] [id number] 08:03:00 Test Item Value Reference Range Interpretation Comments Magnesium Lvl (test code = Magnesium 1.9 1.8-2.4 Lvl) [facility] [employer] [id number] 08:03:00 Test Item Value Reference Range Interpretation Comments Procalcitonin Lvl (test no gt See_Comment [Au tomated message] code = Procalcitonin Lvl) Th e system which generated this result transmitted ref erence range: <=0.10. The reference range was not used to interpr et this result as normal/abnormal . [facility] [employer] [id number] 08:03:00 Test Item Value Reference Range Interpretation Comments LDH (test code = LDH) 354 98-192 [facility]JxlqchqAMYSLMONDU3704-19-08 08:03:00 Test Item Value Reference Range Interpretation Comments WBC (test code = WBC) 7.5 3.7-10.4 [facility] TexasSfmleffUNYZOKJZIK6605-35-12 08:03:00 Test Item Value Reference Range Interpretation Comments RBC (test code = RBC) 3.44 4.20-5.40 [facility] TexasEwzxbzqGABCXTLIZK3572-86-05 08:03:00 Test Item Value Reference Range Interpretation Comments Hgb (test code = Hgb) 8.3 12.0-16.0 [place] 778932-07-25 08:03:00 Test Item Value Reference Range Interpretation Comments Hct (test code = Hct) 26.2 36.0-48.0 [place] 778932-07-25 08:03:00 Test Item Value Reference Range Interpretation Comments MCV (test code = MCV) 76.1 80.0-98.0 [place] 778932-07-25 08:03:00 Test Item Value Reference Range Interpretation Comments MCH (test code = MCH) 24.0 pg 27.0-31.0 [place] 778932-07-25 08:03:00 Test Item Value Reference Range Interpretation Comments MCHC (test code = MCHC) 31.6 32.0-36.0 [place] 778932-07-25 08:03:00 Test Item Value Reference Range Interpretation Comments RDW (test code = RDW) 20.9 11.5-14.5 [place] 778932-07-25 08:03:00 Test Item Value Reference Range Interpretation Comments Platelet (test code = Platelet) 289 133-450 [facility] CenterBsatlptGULKNRCEOY4834-78-63 08:03:00 Test Item Value Reference Range Interpretation Comments MPV (test code = MPV) 7.5 7.4-10.4 [place] 778932-07-25 08:03:00 Test Item Value Reference Range Interpretation Comments Segs (test code = Segs) 94.0 45.0-75.0 [place] 778932-07-25 08:03:00 Test Item Value Reference Range Interpretation Comments Lymphocytes (test code = Lymphocytes) 4.3 20.0-40.0 [place] 778932-07-25 08:03:00 Test Item Value Reference Range Interpretation Comments Monocytes (test code = Monocytes) 1.6 2.0-12.0 [place] 778932-07-25 08:03:00 Test Item Value Reference Range Interpretation Comments Basophils (test code = 0.1 See_Comment [Aut omated message] The Basophils) system which ge nerated this result tra nsmitted reference range : <=1.0. The reference r hugo was not used to int erpret this result as normal/abnormal . [place] 778932-07-25 08:03:00 Test Item Value Reference Range Interpretation Comments Neutrophils # (test code = Neutrophils 7.0 1.5-8.1 #) [facility]villeTujgpgkFMNMBEYZEZ9081-86-56 08:03:00 Test Item Value Reference Range Interpretation Comments Lymphocytes # (test code = Lymphocytes 0.3 1.0-5.5 #) [facility] GreenvilleAyyvavqWYNFAEWEYT8623-52-11 08:03:00 Test Item Value Reference Range Interpretation Comments Monocytes # (test code 0.1 See_Comment [Aut omated message] The = Monocytes #) system which generated this result tra nsmitted reference range : <=0.8. The reference r hugo was not used to int erpret this result as normal/abnormal . [facility] GreenvilleLhcrbzpDGIWPSNGBH2754-36-60 08:03:00 Test Item Value Reference Range Interpretation Comments Microcyte (test code = 1+ *ABN*(06/13/22 Microcyte) 3:03 AM) [facility] [employer]20[facility] 08:03:00 Test Item Value Reference Range Interpretation Comments HS Troponin I 1 Hr (test code = HS 50 Troponin I 1 Hr) [facility]Get[facility] [id number] 08:03:00 Test Item Value Reference Range Interpretation Comments HS Troponin I 0 to 1 See Note 5(06/13/22 Hour Delta (test code = 3:03 AM) HS Troponin I 0 to 1 Hour Delta) [facility] [id number] 08:03:00 Test Item Value Reference Range Interpretation Comments Glucose Lvl (test code = Glucose Lvl) 142 70-99 [facility] [id number] 08:03:00 Test Item Value Reference Range Interpretation Comments BUN (test code = BUN) 21 06-10 [facility] [id number] 08:03:00 Test Item Value Reference Range Interpretation Comments Creatinine Lvl (test code = Creatinine 0.84 0.50-1.40 Lvl) [facility] TexasFreedom Scientific Holdings, LLCWFOPP9132-60-97 08:03:00 Test Item Value Reference Range Interpretation Comments Sodium Lvl (test code = Sodium Lvl) 133 135-145 [facility] TexasFre[facility] Scientific Holdings, LLCXMYDY6609-40-94 08:03:00 Test Item Value Reference Range Interpretation Comments Potassium Lvl (test code = Potassium 4.4 3.5-5.1 Lvl) [facility] TexasMelodigramEMILY [place] 45700PJURY9219-06-14 08:03:00 Test Item Value Reference Range Interpretation Comments Chloride Lvl (test code = Chloride Lvl) 98 95-109 [place] 852652-07-25 08:03:00 Test Item Value Reference Range Interpretation Comments CO2 (test code = CO2) 25 24-32 [facility] TexasMelodigramEM[place] [id number] 08:03:00 Test Item Value Reference Range Interpretation Comments AGAP (test code = AGAP) 14.4 10.0-20.0 [facility] TexasMelodigramEMILY [place] [id number] 08:03:00 Test Item Value Reference Range Interpretation Comments Calcium Lvl (test code = Calcium Lvl) 9.1 8.5-10.5 [facility] TexasMelodigramEM[place] [address]CMVXY9651-06-29 08:03:00 Test Item Value Reference Range Interpretation Comments B/C Ratio (test code = B/C Ratio) 25 1 6-25 [facility] TexasMelodigramEM[place] [id number] 08:03:00 Test Item Value Reference Range Interpretation Comments Total Protein (test code = Total 6.7 6.4-8.4 Protein) [place] 852652-07-25 08:03:00 Test Item Value Reference Range Interpretation Comments Albumin Lvl (test code = Albumin Lvl) 3.2 3.5-5.0 [place] 852652-07-25 08:03:00 Test Item Value Reference Range Interpretation Comments Globulin (test code = Globulin) 3.5 2.7-4.2 [place] 852652-07-25 08:03:00 Test Item Value Reference Range Interpretation Comments A/G Ratio (test code = A/G Ratio) 0.9 1 0.7-1.6 [place] 852652-07-25 08:03:00 Test Item Value Reference Range Interpretation Comments ALT (test code = ALT) 19 See_Comment [Auto mated message] The system which ge nerated this result transmit lavon reference range : <=65. The reference range was not used to interpr et this result as dionne l/abnormal. [facility] [id number] 08:03:00 Test Item Value Reference Range Interpretation Comments AST (test code = AST) 26 See_Comment [Auto mated message] The system which ge nerated this result transmit lavon reference range : <=37. The reference range was not used to interpr et this result as dionne l/abnormal. [facility]Tri[facility] [id number] 08:03:00 Test Item Value Reference Range Interpretation Comments Alk Phos (test code = Alk Phos) 56 39-136 [place] [address]-07-25 08:03:00 Test Item Value Reference Range Interpretation Comments Bili Total (test code = Bili Total) 1.0 0.2-1.3 [place] 852652-07-25 08:03:00 Test Item Value Reference Range Interpretation Comments eGFR (test code = eGFR) 67 [place] 852652-07-25 08:03:00 Test Item Value Reference Range Interpretation Comments Magnesium Lvl (test code = Magnesium 1.9 1.8-2.4 Lvl) [place] [address]-07-25 08:03:00 Test Item Value Reference Range Interpretation Comments Procalcitonin Lvl (test no gt See_Comment [Au tomated message] code = Procalcitonin Lvl) Th e system which generated this result transmitted ref erence range: <=0.10. The reference range was not used to interpr et this result as normal/abnormal . [place] 852652-07-25 08:03:00 Test Item Value Reference Range Interpretation Comments LDH (test code = LDH) 354 98-192 [place] 778932-07-25 08:03:00 Test Item Value Reference Range Interpretation Comments WBC (test code = WBC) 7.5 3.7-10.4 [place] [address]-07-25 08:03:00 Test Item Value Reference Range Interpretation Comments RBC (test code = RBC) 3.44 4.20-5.40 [place] [address]-07-25 08:03:00 Test Item Value Reference Range Interpretation Comments Hgb (test code = Hgb) 8.3 12.0-16.0 [place] [address]-07-25 08:03:00 Test Item Value Reference Range Interpretation Comments Hct (test code = Hct) 26.2 36.0-48.0 [place] [address]-07-25 08:03:00 Test Item Value Reference Range Interpretation Comments MCV (test code = MCV) 76.1 80.0-98.0 [facility] CenterXlvsrjhOPMEWQPYRR1816-52-33 08:03:00 Test Item Value Reference Range Interpretation Comments MCH (test code = MCH) 24.0 pg 27.0-31.0 [facility] CenterWczqhquDDYRUPHVHM9308-02-87 08:03:00 Test Item Value Reference Range Interpretation Comments MCHC (test code = MCHC) 31.6 32.0-36.0 [facility] CenterKrhdaxuTBLFSTPPKS7657-43-68 08:03:00 Test Item Value Reference Range Interpretation Comments RDW (test code = RDW) 20.9 11.5-14.5 [facility] CenterNqwuxcjANQPODRAOP5799-25-35 08:03:00 Test Item Value Reference Range Interpretation Comments Platelet (test code = Platelet) 289 133-450 [facility] CenterSbatkrpFXWFVALXGD4738-08-42 08:03:00 Test Item Value Reference Range Interpretation Comments MPV (test code = MPV) 7.5 7.4-10.4 [facility] CenterHyyvssiUGZGUHFBLR9411-51-72 08:03:00 Test Item Value Reference Range Interpretation Comments Segs (test code = Segs) 94.0 45.0-75.0 [facility] CenterNiiruwuQBEFBGYPLO6794-63-30 08:03:00 Test Item Value Reference Range Interpretation Comments Lymphocytes (test code = Lymphocytes) 4.3 20.0-40.0 [facility] CenterKfvhzsfZWCAAGZHGO0275-66-61 08:03:00 Test Item Value Reference Range Interpretation Comments Monocytes (test code = Monocytes) 1.6 2.0-12.0 [facility] CenterBwgtjigQLPJJDQFGK1435-30-36 08:03:00 Test Item Value Reference Range Interpretation Comments Basophils (test code = 0.1 See_Comment [Aut omated message] The Basophils) system which ge nerated this result tra nsmitted reference range : <=1.0. The reference r hugo was not used to int erpret this result as normal/abnormal . [facility] CenterBzifequKOKQCVYDWG1714-63-45 08:03:00 Test Item Value Reference Range Interpretation Comments Neutrophils # (test code = Neutrophils 7.0 1.5-8.1 #) [facility] CenterSrckxiuSVUZBWNQSJ8704-68-64 08:03:00 Test Item Value Reference Range Interpretation Comments Lymphocytes # (test code = Lymphocytes 0.3 1.0-5.5 #) [place] 778932-07-25 08:03:00 Test Item Value Reference Range Interpretation Comments Monocytes # (test code 0.1 See_Comment [Aut omated message] The = Monocytes #) system which generated this result tra nsmitted reference range : <=0.8. The reference r hugo was not used to int erpret this result as normal/abnormal . [facility] TexasSgmamjbKGRGQIVZBL2893-46-57 08:03:00 Test Item Value Reference Range Interpretation Comments Microcyte (test code = 1+ *ABN*(06/13/22 Microcyte) 3:03 AM) [facility]Prim[facility] [id number] 08:03:00 Test Item Value Reference Range Interpretation Comments HS Troponin I 1 Hr (test code = HS 50 Troponin I 1 Hr) [facility]Get[facility] [id number] 08:03:00 Test Item Value Reference Range Interpretation Comments HS Troponin I 0 to 1 See Note 5(06/13/22 Hour Delta (test code = 3:03 AM) HS Troponin I 0 to 1 Hour Delta) [facility] [employer]2022-07-25 08:03:00 Test Item Value Reference Range Interpretation Comments Glucose Lvl (test code = Glucose Lvl) 142 70-99 [facility] [employer]2022-07-25 08:03:00 Test Item Value Reference Range Interpretation Comments BUN (test code = BUN) 21 06-10 [facility] [employer]2022-07-25 08:03:00 Test Item Value Reference Range Interpretation Comments Creatinine Lvl (test code = Creatinine 0.84 0.50-1.40 Lvl) [facility] [employer]2022-07-25 08:03:00 Test Item Value Reference Range Interpretation Comments Sodium Lvl (test code = Sodium Lvl) 133 135-145 [facility] [employer]2022-07-25 08:03:00 Test Item Value Reference Range Interpretation Comments Potassium Lvl (test code = Potassium 4.4 3.5-5.1 Lvl) [facility] [employer]2022-07-25 08:03:00 Test Item Value Reference Range Interpretation Comments Chloride Lvl (test code = Chloride Lvl) 98 95-109 [facility] [employer]2022-07-25 08:03:00 Test Item Value Reference Range Interpretation Comments CO2 (test code = CO2) 25 24-32 [place] 852652-07-25 08:03:00 Test Item Value Reference Range Interpretation Comments AGAP (test code = AGAP) 14.4 10.0-20.0 [place] 852652-07-25 08:03:00 Test Item Value Reference Range Interpretation Comments Calcium Lvl (test code = Calcium Lvl) 9.1 8.5-10.5 [place] 852652-07-25 08:03:00 Test Item Value Reference Range Interpretation Comments B/C Ratio (test code = B/C Ratio) 25 1 6-25 [place] 852652-07-25 08:03:00 Test Item Value Reference Range Interpretation Comments Total Protein (test code = Total 6.7 6.4-8.4 Protein) [place] 852652-07-25 08:03:00 Test Item Value Reference Range Interpretation Comments Albumin Lvl (test code = Albumin Lvl) 3.2 3.5-5.0 [place] 852652-07-25 08:03:00 Test Item Value Reference Range Interpretation Comments Globulin (test code = Globulin) 3.5 2.7-4.2 [place] 852652-07-25 08:03:00 Test Item Value Reference Range Interpretation Comments A/G Ratio (test code = A/G Ratio) 0.9 1 0.7-1.6 [place] 852652-07-25 08:03:00 Test Item Value Reference Range Interpretation Comments ALT (test code = ALT) 19 See_Comment [Auto mated message] The system which ge nerated this result transmit lavon reference range : <=65. The reference range was not used to interpr et this result as dionne l/abnormal. [facility] [id number] 08:03:00 Test Item Value Reference Range Interpretation Comments AST (test code = AST) 26 See_Comment [Auto mated message] The system which ge nerated this result transmit lavon reference range : <=37. The reference range was not used to interpr et this result as dionne l/abnormal. [facility] [id number] 08:03:00 Test Item Value Reference Range Interpretation Comments Alk Phos (test code = Alk Phos) 56 39-136 [facility] [id number] 08:03:00 Test Item Value Reference Range Interpretation Comments Bili Total (test code = Bili Total) 1.0 0.2-1.3 [place] 852652-07-25 08:03:00 Test Item Value Reference Range Interpretation Comments eGFR (test code = eGFR) 67 [place] 852652-07-25 08:03:00 Test Item Value Reference Range Interpretation Comments Magnesium Lvl (test code = Magnesium 1.9 1.8-2.4 Lvl) [place] 852652-07-25 08:03:00 Test Item Value Reference Range Interpretation Comments Procalcitonin Lvl (test no gt See_Comment [Au tomated message] code = Procalcitonin Lvl) Th e system which generated this result transmitted ref erence range: <=0.10. The reference range was not used to interpr et this result as normal/abnormal . [place] 852652-07-25 08:03:00 Test Item Value Reference Range Interpretation Comments LDH (test code = LDH) 354 98-192 [place] 778932-07-25 08:03:00 Test Item Value Reference Range Interpretation Comments WBC (test code = WBC) 7.5 3.7-10.4 [place] [address]-07-25 08:03:00 Test Item Value Reference Range Interpretation Comments RBC (test code = RBC) 3.44 4.20-5.40 [place] [address]-07-25 08:03:00 Test Item Value Reference Range Interpretation Comments Hgb (test code = Hgb) 8.3 12.0-16.0 [place] [address]-07-25 08:03:00 Test Item Value Reference Range Interpretation Comments Hct (test code = Hct) 26.2 36.0-48.0 [place] [address]-07-25 08:03:00 Test Item Value Reference Range Interpretation Comments MCV (test code = MCV) 76.1 80.0-98.0 [place] [address]-07-25 08:03:00 Test Item Value Reference Range Interpretation Comments MCH (test code = MCH) 24.0 pg 27.0-31.0 [place] [address]-07-25 08:03:00 Test Item Value Reference Range Interpretation Comments MCHC (test code = MCHC) 31.6 32.0-36.0 [place] 778932-07-25 08:03:00 Test Item Value Reference Range Interpretation Comments RDW (test code = RDW) 20.9 11.5-14.5 [place] 778932-07-25 08:03:00 Test Item Value Reference Range Interpretation Comments Platelet (test code = Platelet) 289 133-450 [facility] CenterQexkixuIGJKTUCIVJ7014-50-95 08:03:00 Test Item Value Reference Range Interpretation Comments MPV (test code = MPV) 7.5 7.4-10.4 [place] 778932-07-25 08:03:00 Test Item Value Reference Range Interpretation Comments Segs (test code = Segs) 94.0 45.0-75.0 [place] 778932-07-25 08:03:00 Test Item Value Reference Range Interpretation Comments Lymphocytes (test code = Lymphocytes) 4.3 20.0-40.0 [place] 778932-07-25 08:03:00 Test Item Value Reference Range Interpretation Comments Monocytes (test code = Monocytes) 1.6 2.0-12.0 [place] 778932-07-25 08:03:00 Test Item Value Reference Range Interpretation Comments Basophils (test code = 0.1 See_Comment [Aut omated message] The Basophils) system which ge nerated this result tra nsmitted reference range : <=1.0. The reference r hugo was not used to int erpret this result as normal/abnormal . [facility] CenterQcqzyexFJVXXNKVLP0074-79-86 08:03:00 Test Item Value Reference Range Interpretation Comments Neutrophils # (test code = Neutrophils 7.0 1.5-8.1 #) [place] 778932-07-25 08:03:00 Test Item Value Reference Range Interpretation Comments Lymphocytes # (test code = Lymphocytes 0.3 1.0-5.5 #) [place] [address]-07-25 08:03:00 Test Item Value Reference Range Interpretation Comments Monocytes # (test code 0.1 See_Comment [Aut omated message] The = Monocytes #) system which generated this result tra nsmitted reference range : <=0.8. The reference r hugo was not used to int erpret this result as normal/abnormal . [place] [address]-07-25 08:03:00 Test Item Value Reference Range Interpretation Comments Microcyte (test code = 1+ *ABN*(06/13/22 Microcyte) 3:03 AM) [facility]villeCARAC BTHUQWQ7710-07-76 08:03:00 Test Item Value Reference Range Interpretation Comments HS Troponin I 1 Hr (test code = HS 50 Troponin I 1 Hr) [facility] [id number] 08:03:00 Test Item Value Reference Range Interpretation Comments HS Troponin I 0 to 1 See Note 5(06/13/22 Hour Delta (test code = 3:03 AM) HS Troponin I 0 to 1 Hour Delta) [facility] [id number] 08:03:00 Test Item Value Reference Range Interpretation Comments Glucose Lvl (test code = Glucose Lvl) 142 70-99 [facility] [id number] 08:03:00 Test Item Value Reference Range Interpretation Comments BUN (test code = BUN) 21 - [facility]2022-07-25 08:03:00 Test Item Value Reference Range Interpretation Comments Creatinine Lvl (test code = Creatinine 0.84 0.50-1.40 Lvl) [facility] [id number] 08:03:00 Test Item Value Reference Range Interpretation Comments Sodium Lvl (test code = Sodium Lvl) 133 135-145 [facility] [id number] 08:03:00 Test Item Value Reference Range Interpretation Comments Potassium Lvl (test code = Potassium 4.4 3.5-5.1 Lvl) [facility] [id number] 08:03:00 Test Item Value Reference Range Interpretation Comments Chloride Lvl (test code = Chloride Lvl) 98 95-109 [facility] [id number] 08:03:00 Test Item Value Reference Range Interpretation Comments CO2 (test code = CO2) 25 24-32 [facility]2022-07-25 08:03:00 Test Item Value Reference Range Interpretation Comments AGAP (test code = AGAP) 14.4 10.0-20.0 [facility]2022-07-25 08:03:00 Test Item Value Reference Range Interpretation Comments Calcium Lvl (test code = Calcium Lvl) 9.1 8.5-10.5 [place] 852652-07-25 08:03:00 Test Item Value Reference Range Interpretation Comments B/C Ratio (test code = B/C Ratio) 25 1 6-25 [place] 852652-07-25 08:03:00 Test Item Value Reference Range Interpretation Comments Total Protein (test code = Total 6.7 6.4-8.4 Protein) [place] 852652-07-25 08:03:00 Test Item Value Reference Range Interpretation Comments Albumin Lvl (test code = Albumin Lvl) 3.2 3.5-5.0 [place] 852652-07-25 08:03:00 Test Item Value Reference Range Interpretation Comments Globulin (test code = Globulin) 3.5 2.7-4.2 [place] 852652-07-25 08:03:00 Test Item Value Reference Range Interpretation Comments A/G Ratio (test code = A/G Ratio) 0.9 1 0.7-1.6 [place] 852652-07-25 08:03:00 Test Item Value Reference Range Interpretation Comments ALT (test code = ALT) 19 See_Comment [Auto mated message] The system which ge nerated this result transmit lavon reference range : <=65. The reference range was not used to interpr et this result as dionne l/abnormal. [facility] [id number] 08:03:00 Test Item Value Reference Range Interpretation Comments AST (test code = AST) 26 See_Comment [Auto mated message] The system which ge nerated this result transmit lavon reference range : <=37. The reference range was not used to interpr et this result as dionne l/abnormal. [facility] [id number] 08:03:00 Test Item Value Reference Range Interpretation Comments Alk Phos (test code = Alk Phos) 56 39-136 [facility] [id number] 08:03:00 Test Item Value Reference Range Interpretation Comments Bili Total (test code = Bili Total) 1.0 0.2-1.3 [facility] [id number] 08:03:00 Test Item Value Reference Range Interpretation Comments eGFR (test code = eGFR) 67 [facility] [id number] 08:03:00 Test Item Value Reference Range Interpretation Comments Magnesium Lvl (test code = Magnesium 1.9 1.8-2.4 Lvl) [facility]2022-07-25 08:03:00 Test Item Value Reference Range Interpretation Comments Procalcitonin Lvl (test no gt See_Comment [Au tomated message] code = Procalcitonin Lvl) e system which generated this result transmitted ref erence range: <=0.10. The reference range was not used to interpr et this result as normal/abnormal . [facility]2022-07-25 08:03:00 Test Item Value Reference Range Interpretation Comments LDH (test code = LDH) 354 98-192 [facility] CenterFiighsyMOLMKYHGMT1624-63-15 08:03:00 Test Item Value Reference Range Interpretation Comments WBC (test code = WBC) 7.5 3.7-10.4 [facility] CenterTzbsgxjDFVQXITWFZ4465-31-91 08:03:00 Test Item Value Reference Range Interpretation Comments RBC (test code = RBC) 3.44 4.20-5.40 [place] 778932-07-25 08:03:00 Test Item Value Reference Range Interpretation Comments Hgb (test code = Hgb) 8.3 12.0-16.0 [place] 778932-07-25 08:03:00 Test Item Value Reference Range Interpretation Comments Hct (test code = Hct) 26.2 36.0-48.0 [facility] CenterNsedqbgZERRXLZGRA6434-89-92 08:03:00 Test Item Value Reference Range Interpretation Comments MCV (test code = MCV) 76.1 80.0-98.0 [place] 778932-07-25 08:03:00 Test Item Value Reference Range Interpretation Comments MCH (test code = MCH) 24.0 pg 27.0-31.0 [facility] CenterTgofhtaHIORKNCQCH5404-84-10 08:03:00 Test Item Value Reference Range Interpretation Comments MCHC (test code = MCHC) 31.6 32.0-36.0 [facility] CenterUzbsblcWIKHNIPNPA5363-29-87 08:03:00 Test Item Value Reference Range Interpretation Comments RDW (test code = RDW) 20.9 11.5-14.5 [place] 778932-07-25 08:03:00 Test Item Value Reference Range Interpretation Comments Platelet (test code = Platelet) 289 133-450 [facility] CenterYhjixhdMKGNHPWCKK4140-35-58 08:03:00 Test Item Value Reference Range Interpretation Comments MPV (test code = MPV) 7.5 7.4-10.4 [facility] CenterXlyxgigUXWFRUFXZT1049-63-79 08:03:00 Test Item Value Reference Range Interpretation Comments Segs (test code = Segs) 94.0 45.0-75.0 [facility] CenterCyxxicaLRGYMBCYYK6126-80-96 08:03:00 Test Item Value Reference Range Interpretation Comments Lymphocytes (test code = Lymphocytes) 4.3 20.0-40.0 [facility] CenterWgrpvymQUIKLXAQMP7312-75-59 08:03:00 Test Item Value Reference Range Interpretation Comments Monocytes (test code = Monocytes) 1.6 2.0-12.0 [facility] CenterYozfsjqMIVNIKTXOY0397-45-39 08:03:00 Test Item Value Reference Range Interpretation Comments Basophils (test code = 0.1 See_Comment [Aut omated message] The Basophils) system which ge nerated this result tra nsmitted reference range : <=1.0. The reference r hugo was not used to int erpret this result as normal/abnormal . [facility] CenterRfwvyhjRHCHKPRANJ5852-70-90 08:03:00 Test Item Value Reference Range Interpretation Comments Neutrophils # (test code = Neutrophils 7.0 1.5-8.1 #) [facility] CenterFugigpoZXVODAFDJS4803-86-03 08:03:00 Test Item Value Reference Range Interpretation Comments Lymphocytes # (test code = Lymphocytes 0.3 1.0-5.5 #) [facility] CenterAaflbetKVFJJESEFX7472-93-38 08:03:00 Test Item Value Reference Range Interpretation Comments Monocytes # (test code 0.1 See_Comment [Aut omated message] The = Monocytes #) system which generated this result tra nsmitted reference range : <=0.8. The reference r hugo was not used to int erpret this result as normal/abnormal . [facility] CenterJemyzxfSCBQGTZGEU4574-07-34 08:03:00 Test Item Value Reference Range Interpretation Comments Microcyte (test code = 1+ *ABN*(06/13/22 Microcyte) 3:03 AM) [facility]DIMCLAREN LAPEER REGIONBCLZSKY2335-55-75 08:03:00 Test Item Value Reference Range Interpretation Comments HS Troponin I 1 Hr (test code = HS 50 Troponin I 1 Hr) [facility]villeCARDI[facility] [id number] 08:03:00 Test Item Value Reference Range Interpretation Comments HS Troponin I 0 to 1 See Note 5(06/13/22 Hour Delta (test code = 3:03 AM) HS Troponin I 0 to 1 Hour Delta) [facility] [id number] 08:03:00 Test Item Value Reference Range Interpretation Comments Glucose Lvl (test code = Glucose Lvl) 142 70-99 [facility] [id number] 08:03:00 Test Item Value Reference Range Interpretation Comments BUN (test code = BUN) 21 06-10 [facility] [id number] 08:03:00 Test Item Value Reference Range Interpretation Comments Creatinine Lvl (test code = Creatinine 0.84 0.50-1.40 Lvl) [facility] [id number] 08:03:00 Test Item Value Reference Range Interpretation Comments Sodium Lvl (test code = Sodium Lvl) 133 135-145 [facility] [id number] 08:03:00 Test Item Value Reference Range Interpretation Comments Potassium Lvl (test code = Potassium 4.4 3.5-5.1 Lvl) [facility] [id number] 08:03:00 Test Item Value Reference Range Interpretation Comments Chloride Lvl (test code = Chloride Lvl) 98 95-109 [facility] [id number] 08:03:00 Test Item Value Reference Range Interpretation Comments CO2 (test code = CO2) 25 24-32 [facility] [id number] 08:03:00 Test Item Value Reference Range Interpretation Comments AGAP (test code = AGAP) 14.4 10.0-20.0 [facility] [id number] 08:03:00 Test Item Value Reference Range Interpretation Comments Calcium Lvl (test code = Calcium Lvl) 9.1 8.5-10.5 [facility] [id number] 08:03:00 Test Item Value Reference Range Interpretation Comments B/C Ratio (test code = B/C Ratio) 25 1 6-25 [facility] [id number] 08:03:00 Test Item Value Reference Range Interpretation Comments Total Protein (test code = Total 6.7 6.4-8.4 Protein) [facility] TexasMelodigramDAV[place] [id number] 08:03:00 Test Item Value Reference Range Interpretation Comments Albumin Lvl (test code = Albumin Lvl) 3.2 3.5-5.0 [place] [address]-07-25 08:03:00 Test Item Value Reference Range Interpretation Comments Globulin (test code = Globulin) 3.5 2.7-4.2 [place] [address]-07-25 08:03:00 Test Item Value Reference Range Interpretation Comments A/G Ratio (test code = A/G Ratio) 0.9 1 0.7-1.6 [place] [address]-07-25 08:03:00 Test Item Value Reference Range Interpretation Comments ALT (test code = ALT) 19 See_Comment [Auto mated message] The system which ge nerated this result transmit lavon reference range : <=65. The reference range was not used to interpr et this result as dionne l/abnormal. [place] [address]-07-25 08:03:00 Test Item Value Reference Range Interpretation Comments AST (test code = AST) 26 See_Comment [Auto mated message] The system which ge nerated this result transmit lavon reference range : <=37. The reference range was not used to interpr et this result as dionne l/abnormal. [place] 852652-07-25 08:03:00 Test Item Value Reference Range Interpretation Comments Alk Phos (test code = Alk Phos) 56 39-136 [facility] TexasMelodigramDAVID [place] [id number] 08:03:00 Test Item Value Reference Range Interpretation Comments Bili Total (test code = Bili Total) 1.0 0.2-1.3 [facility] [id number] 08:03:00 Test Item Value Reference Range Interpretation Comments eGFR (test code = eGFR) 67 [facility] [id number] 08:03:00 Test Item Value Reference Range Interpretation Comments Magnesium Lvl (test code = Magnesium 1.9 1.8-2.4 Lvl) [place] [address]-07-25 08:03:00 Test Item Value Reference Range Interpretation Comments Procalcitonin Lvl (test no gt See_Comment [Au tomated message] code = Procalcitonin Lvl) Th e system which generated this result transmitted ref erence range: <=0.10. The reference range was not used to interpr et this result as normal/abnormal . [facility]2022-07-25 08:03:00 Test Item Value Reference Range Interpretation Comments LDH (test code = LDH) 354 98-192 [facility] CenterOybmtkrVZHUNHYBJX8196-81-79 08:03:00 Test Item Value Reference Range Interpretation Comments WBC (test code = WBC) 7.5 3.7-10.4 [place] 778932-07-25 08:03:00 Test Item Value Reference Range Interpretation Comments RBC (test code = RBC) 3.44 4.20-5.40 [place] 778932-07-25 08:03:00 Test Item Value Reference Range Interpretation Comments Hgb (test code = Hgb) 8.3 12.0-16.0 [place] 778932-07-25 08:03:00 Test Item Value Reference Range Interpretation Comments Hct (test code = Hct) 26.2 36.0-48.0 [facility] CenterQwzleqqWXPKOIQQDW4803-84-01 08:03:00 Test Item Value Reference Range Interpretation Comments MCV (test code = MCV) 76.1 80.0-98.0 [place] 778932-07-25 08:03:00 Test Item Value Reference Range Interpretation Comments MCH (test code = MCH) 24.0 pg 27.0-31.0 [facility] CenterVvgmtltKOBOQSQLUJ6928-26-73 08:03:00 Test Item Value Reference Range Interpretation Comments MCHC (test code = MCHC) 31.6 32.0-36.0 [facility] CenterKzroimiYQEOTEPYVD2013-46-46 08:03:00 Test Item Value Reference Range Interpretation Comments RDW (test code = RDW) 20.9 11.5-14.5 [place] [address]-07-25 08:03:00 Test Item Value Reference Range Interpretation Comments Platelet (test code = Platelet) 289 133-450 [facility] CenterDbvkejtIHFUTSPDWQ1695-92-21 08:03:00 Test Item Value Reference Range Interpretation Comments MPV (test code = MPV) 7.5 7.4-10.4 [place] 778932-07-25 08:03:00 Test Item Value Reference Range Interpretation Comments Segs (test code = Segs) 94.0 45.0-75.0 [facility] GreenvilleCohcdkjUMPLQFJWDT1410-48-52 08:03:00 Test Item Value Reference Range Interpretation Comments Lymphocytes (test code = Lymphocytes) 4.3 20.0-40.0 [facility]TumrqxjVFBPSBVVCU2734-39-34 08:03:00 Test Item Value Reference Range Interpretation Comments Monocytes (test code = Monocytes) 1.6 2.0-12.0 [facility] HospitalSqtzpgvSXVLBIKQXB9050-05-16 08:03:00 Test Item Value Reference Range Interpretation Comments Basophils (test code = 0.1 See_Comment [Aut omated message] The Basophils) system which ge nerated this result tra nsmitted reference range : <=1.0. The reference r hugo was not used to int erpret this result as normal/abnormal . [facility] GreenvillePnvamfnTGWCTBQZBR1610-20-48 08:03:00 Test Item Value Reference Range Interpretation Comments Neutrophils # (test code = Neutrophils 7.0 1.5-8.1 #) [facility]MyuvjipMWNDMKLTJE4465-35-23 08:03:00 Test Item Value Reference Range Interpretation Comments Lymphocytes # (test code = Lymphocytes 0.3 1.0-5.5 #) [facility] HospitalVghzdluZHMFDLENBC5958-93-82 08:03:00 Test Item Value Reference Range Interpretation Comments Monocytes # (test code 0.1 See_Comment [Aut omated message] The = Monocytes #) system which generated this result tra nsmitted reference range : <=0.8. The reference r hugo was not used to int erpret this result as normal/abnormal . [facility] TexasKcbunbrHDPTOJFEJH8061-44-36 08:03:00 Test Item Value Reference Range Interpretation Comments Microcyte (test code = 1+ *ABN*(06/13/22 Microcyte) 3:03 AM) [facility] [employer]2022-07-25 08:03:00 Test Item Value Reference Range Interpretation Comments HS Troponin I 1 Hr (test code = HS 50 Troponin I 1 Hr) [facility] [id number] 08:03:00 Test Item Value Reference Range Interpretation Comments HS Troponin I 0 to 1 See Note 5(06/13/22 Hour Delta (test code = 3:03 AM) HS Troponin I 0 to 1 Hour Delta) [facility] [id number] 08:03:00 Test Item Value Reference Range Interpretation Comments Glucose Lvl (test code = Glucose Lvl) 142 70-99 [place] 852652-07-25 08:03:00 Test Item Value Reference Range Interpretation Comments BUN (test code = BUN) 21 7-22 [place] 852652-07-25 08:03:00 Test Item Value Reference Range Interpretation Comments Creatinine Lvl (test code = Creatinine 0.84 0.50-1.40 Lvl) [place] 852652-07-25 08:03:00 Test Item Value Reference Range Interpretation Comments Sodium Lvl (test code = Sodium Lvl) 133 135-145 [place] 852652-07-25 08:03:00 Test Item Value Reference Range Interpretation Comments Potassium Lvl (test code = Potassium 4.4 3.5-5.1 Lvl) [facility]2022-07-25 08:03:00 Test Item Value Reference Range Interpretation Comments Chloride Lvl (test code = Chloride Lvl) 98 95-109 [place] 852652-07-25 08:03:00 Test Item Value Reference Range Interpretation Comments CO2 (test code = CO2) 25 24-32 [place] 852652-07-25 08:03:00 Test Item Value Reference Range Interpretation Comments AGAP (test code = AGAP) 14.4 10.0-20.0 [place] 852652-07-25 08:03:00 Test Item Value Reference Range Interpretation Comments Calcium Lvl (test code = Calcium Lvl) 9.1 8.5-10.5 [place] 852652-07-25 08:03:00 Test Item Value Reference Range Interpretation Comments B/C Ratio (test code = B/C Ratio) 25 1 6-25 [place] 852652-07-25 08:03:00 Test Item Value Reference Range Interpretation Comments Total Protein (test code = Total 6.7 6.4-8.4 Protein) [place] 852652-07-25 08:03:00 Test Item Value Reference Range Interpretation Comments Albumin Lvl (test code = Albumin Lvl) 3.2 3.5-5.0 [place] 852652-07-25 08:03:00 Test Item Value Reference Range Interpretation Comments Globulin (test code = Globulin) 3.5 2.7-4.2 [place] 852652-07-25 08:03:00 Test Item Value Reference Range Interpretation Comments A/G Ratio (test code = A/G Ratio) 0.9 1 0.7-1.6 [place] 852652-07-25 08:03:00 Test Item Value Reference Range Interpretation Comments ALT (test code = ALT) 19 See_Comment [Auto mated message] The system which ge nerated this result transmit lavon reference range : <=65. The reference range was not used to interpr et this result as dionne l/abnormal. [facility] [id number] 08:03:00 Test Item Value Reference Range Interpretation Comments AST (test code = AST) 26 See_Comment [Auto mated message] The system which ge nerated this result transmit lavon reference range : <=37. The reference range was not used to interpr et this result as dionne l/abnormal. [place] 852652-07-25 08:03:00 Test Item Value Reference Range Interpretation Comments Alk Phos (test code = Alk Phos) 56 39-136 [facility] [id number] 08:03:00 Test Item Value Reference Range Interpretation Comments Bili Total (test code = Bili Total) 1.0 0.2-1.3 [place] 852652-07-25 08:03:00 Test Item Value Reference Range Interpretation Comments eGFR (test code = eGFR) 67 [place] 852652-07-25 08:03:00 Test Item Value Reference Range Interpretation Comments Magnesium Lvl (test code = Magnesium 1.9 1.8-2.4 Lvl) [place] 852652-07-25 08:03:00 Test Item Value Reference Range Interpretation Comments Procalcitonin Lvl (test no gt See_Comment [Au tomated message] code = Procalcitonin Lvl) Th e system which generated this result transmitted ref erence range: <=0.10. The reference range was not used to interpr et this result as normal/abnormal . [facility] [id number] 08:03:00 Test Item Value Reference Range Interpretation Comments LDH (test code = LDH) 354 98-192 [place] 778932-07-25 08:03:00 Test Item Value Reference Range Interpretation Comments WBC (test code = WBC) 7.5 3.7-10.4 [facility] CenterXwgacixNSYFFQKPLM2343-14-51 08:03:00 Test Item Value Reference Range Interpretation Comments RBC (test code = RBC) 3.44 4.20-5.40 [place] 778932-07-25 08:03:00 Test Item Value Reference Range Interpretation Comments Hgb (test code = Hgb) 8.3 12.0-16.0 [place] 778932-07-25 08:03:00 Test Item Value Reference Range Interpretation Comments Hct (test code = Hct) 26.2 36.0-48.0 [facility] CenterKlvehyfPSWEICVZSS7901-85-20 08:03:00 Test Item Value Reference Range Interpretation Comments MCV (test code = MCV) 76.1 80.0-98.0 [place] 778932-07-25 08:03:00 Test Item Value Reference Range Interpretation Comments MCH (test code = MCH) 24.0 pg 27.0-31.0 [facility] CenterJogvwbnAFAKYFTABS2760-16-25 08:03:00 Test Item Value Reference Range Interpretation Comments MCHC (test code = MCHC) 31.6 32.0-36.0 [facility] CenterCbvcymhSXKQUACCBB4189-74-98 08:03:00 Test Item Value Reference Range Interpretation Comments RDW (test code = RDW) 20.9 11.5-14.5 [place] 778932-07-25 08:03:00 Test Item Value Reference Range Interpretation Comments Platelet (test code = Platelet) 289 133-450 [facility] CenterKxjpgruOUXNYKRZVM7858-17-45 08:03:00 Test Item Value Reference Range Interpretation Comments MPV (test code = MPV) 7.5 7.4-10.4 [place] 778932-07-25 08:03:00 Test Item Value Reference Range Interpretation Comments Segs (test code = Segs) 94.0 45.0-75.0 [place] 778932-07-25 08:03:00 Test Item Value Reference Range Interpretation Comments Lymphocytes (test code = Lymphocytes) 4.3 20.0-40.0 [place] 778932-07-25 08:03:00 Test Item Value Reference Range Interpretation Comments Monocytes (test code = Monocytes) 1.6 2.0-12.0 [facility] TexasUdftwecEJEZCCQEAX8640-57-56 08:03:00 Test Item Value Reference Range Interpretation Comments Basophils (test code = 0.1 See_Comment [Aut omated message] The Basophils) system which ge nerated this result tra nsmitted reference range : <=1.0. The reference r hugo was not used to int erpret this result as normal/abnormal . [facility] TexasIjittcmQPURERMPBN3271-94-18 08:03:00 Test Item Value Reference Range Interpretation Comments Neutrophils # (test code = Neutrophils 7.0 1.5-8.1 #) [facility] TexasCmauhbcYQSRHPCOQN0080-53-33 08:03:00 Test Item Value Reference Range Interpretation Comments Lymphocytes # (test code = Lymphocytes 0.3 1.0-5.5 #) [facility] TexasDmewlwoXBPHZQKKZD3757-44-93 08:03:00 Test Item Value Reference Range Interpretation Comments Monocytes # (test code 0.1 See_Comment [Aut omated message] The = Monocytes #) system which generated this result tra nsmitted reference range : <=0.8. The reference r hugo was not used to int erpret this result as normal/abnormal . [facility] TexasRtzkwlfUGNCELISWP4610-08-14 08:03:00 Test Item Value Reference Range Interpretation Comments Microcyte (test code = 1+ *ABN*(06/13/22 Microcyte) 3:03 AM) [facility] [employer]2022-07-25 08:03:00 Test Item Value Reference Range Interpretation Comments HS Troponin I 1 Hr (test code = HS 50 Troponin I 1 Hr) [facility] [employer]2022-07-25 08:03:00 Test Item Value Reference Range Interpretation Comments HS Troponin I 0 to 1 See Note 5(06/13/22 Hour Delta (test code = 3:03 AM) HS Troponin I 0 to 1 Hour Delta) [facility] [employer]2022-07-25 08:03:00 Test Item Value Reference Range Interpretation Comments Glucose Lvl (test code = Glucose Lvl) 142 70-99 [facility] [employer]2022-07-25 08:03:00 Test Item Value Reference Range Interpretation Comments BUN (test code = BUN) 21 - [facility] [employer] [id number] 08:03:00 Test Item Value Reference Range Interpretation Comments Creatinine Lvl (test code = Creatinine 0.84 0.50-1.40 Lvl) [facility]2022-07-25 08:03:00 Test Item Value Reference Range Interpretation Comments Sodium Lvl (test code = Sodium Lvl) 133 135-145 [place] 852652-07-25 08:03:00 Test Item Value Reference Range Interpretation Comments Potassium Lvl (test code = Potassium 4.4 3.5-5.1 Lvl) [facility]2022-07-25 08:03:00 Test Item Value Reference Range Interpretation Comments Chloride Lvl (test code = Chloride Lvl) 98 95-109 [place] 852652-07-25 08:03:00 Test Item Value Reference Range Interpretation Comments CO2 (test code = CO2) 25 24-32 [place] 852652-07-25 08:03:00 Test Item Value Reference Range Interpretation Comments AGAP (test code = AGAP) 14.4 10.0-20.0 [place] 852652-07-25 08:03:00 Test Item Value Reference Range Interpretation Comments Calcium Lvl (test code = Calcium Lvl) 9.1 8.5-10.5 [facility]2022-07-25 08:03:00 Test Item Value Reference Range Interpretation Comments B/C Ratio (test code = B/C Ratio) 25 1 6-25 [place] 852652-07-25 08:03:00 Test Item Value Reference Range Interpretation Comments Total Protein (test code = Total 6.7 6.4-8.4 Protein) [facility]2022-07-25 08:03:00 Test Item Value Reference Range Interpretation Comments Albumin Lvl (test code = Albumin Lvl) 3.2 3.5-5.0 [place] 852652-07-25 08:03:00 Test Item Value Reference Range Interpretation Comments Globulin (test code = Globulin) 3.5 2.7-4.2 [place] 852652-07-25 08:03:00 Test Item Value Reference Range Interpretation Comments A/G Ratio (test code = A/G Ratio) 0.9 1 0.7-1.6 [place] 852652-07-25 08:03:00 Test Item Value Reference Range Interpretation Comments ALT (test code = ALT) 19 See_Comment [Auto mated message] The system which ge nerated this result transmit lavon reference range : <=65. The reference range was not used to interpr et this result as dionne l/abnormal. [facility] [employer] [id number] 08:03:00 Test Item Value Reference Range Interpretation Comments AST (test code = AST) 26 See_Comment [Auto mated message] The system which ge nerated this result transmit lavon reference range : <=37. The reference range was not used to interpr et this result as dionne l/abnormal. [facility] [id number] 08:03:00 Test Item Value Reference Range Interpretation Comments Alk Phos (test code = Alk Phos) 56 39-136 [facility] [id number] 08:03:00 Test Item Value Reference Range Interpretation Comments Bili Total (test code = Bili Total) 1.0 0.2-1.3 [facility] [id number] 08:03:00 Test Item Value Reference Range Interpretation Comments eGFR (test code = eGFR) 67 [facility] [id number] 08:03:00 Test Item Value Reference Range Interpretation Comments Magnesium Lvl (test code = Magnesium 1.9 1.8-2.4 Lvl) [facility] [id number] 08:03:00 Test Item Value Reference Range Interpretation Comments Procalcitonin Lvl (test no gt See_Comment [Au tomated message] code = Procalcitonin Lvl) Th e system which generated this result transmitted ref erence range: <=0.10. The reference range was not used to interpr et this result as normal/abnormal . [facility] [id number] 08:03:00 Test Item Value Reference Range Interpretation Comments LDH (test code = LDH) 354 98-192 [facility] GreenvilleFjxtyhaKZDYNQNHLR0403-52-98 08:03:00 Test Item Value Reference Range Interpretation Comments WBC (test code = WBC) 7.5 3.7-10.4 [place] [address]-07-25 08:03:00 Test Item Value Reference Range Interpretation Comments RBC (test code = RBC) 3.44 4.20-5.40 [facility] GreenvilleQbsylhcJNCJTPZQOJ5765-39-98 08:03:00 Test Item Value Reference Range Interpretation Comments Hgb (test code = Hgb) 8.3 12.0-16.0 [place] 778932-07-25 08:03:00 Test Item Value Reference Range Interpretation Comments Hct (test code = Hct) 26.2 36.0-48.0 [place] 778932-07-25 08:03:00 Test Item Value Reference Range Interpretation Comments MCV (test code = MCV) 76.1 80.0-98.0 [place] 778932-07-25 08:03:00 Test Item Value Reference Range Interpretation Comments MCH (test code = MCH) 24.0 pg 27.0-31.0 [facility] CenterBvoyktdIYYNQWFMGR7500-40-17 08:03:00 Test Item Value Reference Range Interpretation Comments MCHC (test code = MCHC) 31.6 32.0-36.0 [place] 778932-07-25 08:03:00 Test Item Value Reference Range Interpretation Comments RDW (test code = RDW) 20.9 11.5-14.5 [place] 778932-07-25 08:03:00 Test Item Value Reference Range Interpretation Comments Platelet (test code = Platelet) 289 133-450 [facility] CenterWpcphosMUOSAOMWWE6282-78-42 08:03:00 Test Item Value Reference Range Interpretation Comments MPV (test code = MPV) 7.5 7.4-10.4 [place] 778932-07-25 08:03:00 Test Item Value Reference Range Interpretation Comments Segs (test code = Segs) 94.0 45.0-75.0 [place] 778932-07-25 08:03:00 Test Item Value Reference Range Interpretation Comments Lymphocytes (test code = Lymphocytes) 4.3 20.0-40.0 [place] 778932-07-25 08:03:00 Test Item Value Reference Range Interpretation Comments Monocytes (test code = Monocytes) 1.6 2.0-12.0 [place] [address]-07-25 08:03:00 Test Item Value Reference Range Interpretation Comments Basophils (test code = 0.1 See_Comment [Aut omated message] The Basophils) system which ge nerated this result tra nsmitted reference range : <=1.0. The reference r hugo was not used to int erpret this result as normal/abnormal . [facility] GreenvilleUzrcwhzNDKRHHUPJP1555-16-83 08:03:00 Test Item Value Reference Range Interpretation Comments Neutrophils # (test code = Neutrophils 7.0 1.5-8.1 #) [facility] CenterEigadyeSLZIGMATVB6525-54-04 08:03:00 Test Item Value Reference Range Interpretation Comments Lymphocytes # (test code = Lymphocytes 0.3 1.0-5.5 #) [place] 778932-07-25 08:03:00 Test Item Value Reference Range Interpretation Comments Monocytes # (test code 0.1 See_Comment [Aut omated message] The = Monocytes #) system which generated this result tra nsmitted reference range : <=0.8. The reference r hugo was not used to int erpret this result as normal/abnormal . [facility] CenterAqorevfGGNEHIDKWN6669-29-17 08:03:00 Test Item Value Reference Range Interpretation Comments Microcyte (test code = 1+ *ABN*(06/13/22 Microcyte) 3:03 AM) [facility]villePrePay[facility] [id number] 08:03:00 Test Item Value Reference Range Interpretation Comments HS Troponin I 1 Hr (test code = HS 50 Troponin I 1 Hr) [facility]ville[facility] [id number] 08:03:00 Test Item Value Reference Range Interpretation Comments HS Troponin I 0 to 1 See Note 5(06/13/22 Hour Delta (test code = 3:03 AM) HS Troponin I 0 to 1 Hour Delta) [facility] [id number] 08:03:00 Test Item Value Reference Range Interpretation Comments Glucose Lvl (test code = Glucose Lvl) 142 70-99 [facility] [id number] 08:03:00 Test Item Value Reference Range Interpretation Comments BUN (test code = BUN) 21 - [facility] TexasFreedom Scientific Holdings, [id number] 08:03:00 Test Item Value Reference Range Interpretation Comments Creatinine Lvl (test code = Creatinine 0.84 0.50-1.40 Lvl) [facility] TexasFre[facility] Holdings, [id number] 08:03:00 Test Item Value Reference Range Interpretation Comments Sodium Lvl (test code = Sodium Lvl) 133 135-145 [facility] [id number] 08:03:00 Test Item Value Reference Range Interpretation Comments Potassium Lvl (test code = Potassium 4.4 3.5-5.1 Lvl) [place] 852652-07-25 08:03:00 Test Item Value Reference Range Interpretation Comments Chloride Lvl (test code = Chloride Lvl) 98 95-109 [place] 852652-07-25 08:03:00 Test Item Value Reference Range Interpretation Comments CO2 (test code = CO2) 25 24-32 [place] 852652-07-25 08:03:00 Test Item Value Reference Range Interpretation Comments AGAP (test code = AGAP) 14.4 10.0-20.0 [place] 852652-07-25 08:03:00 Test Item Value Reference Range Interpretation Comments Calcium Lvl (test code = Calcium Lvl) 9.1 8.5-10.5 [place] 852652-07-25 08:03:00 Test Item Value Reference Range Interpretation Comments B/C Ratio (test code = B/C Ratio) 25 1 6-25 [place] 852652-07-25 08:03:00 Test Item Value Reference Range Interpretation Comments Total Protein (test code = Total 6.7 6.4-8.4 Protein) [place] 852652-07-25 08:03:00 Test Item Value Reference Range Interpretation Comments Albumin Lvl (test code = Albumin Lvl) 3.2 3.5-5.0 [place] 852652-07-25 08:03:00 Test Item Value Reference Range Interpretation Comments Globulin (test code = Globulin) 3.5 2.7-4.2 [place] 852652-07-25 08:03:00 Test Item Value Reference Range Interpretation Comments A/G Ratio (test code = A/G Ratio) 0.9 1 0.7-1.6 [place] [address]-07-25 08:03:00 Test Item Value Reference Range Interpretation Comments ALT (test code = ALT) 19 See_Comment [Auto mated message] The system which ge nerated this result transmit lavon reference range : <=65. The reference range was not used to interpr et this result as dionne l/abnormal. [place] 852652-07-25 08:03:00 Test Item Value Reference Range Interpretation Comments AST (test code = AST) 26 See_Comment [Auto mated message] The system which ge nerated this result transmit lavon reference range : <=37. The reference range was not used to interpr et this result as dionne l/abnormal. [facility] [id number] 08:03:00 Test Item Value Reference Range Interpretation Comments Alk Phos (test code = Alk Phos) 56 39-136 [facility] [id number] 08:03:00 Test Item Value Reference Range Interpretation Comments Bili Total (test code = Bili Total) 1.0 0.2-1.3 [facility] [id number] 08:03:00 Test Item Value Reference Range Interpretation Comments eGFR (test code = eGFR) 67 [facility] [id number] 08:03:00 Test Item Value Reference Range Interpretation Comments Magnesium Lvl (test code = Magnesium 1.9 1.8-2.4 Lvl) [facility] [id number] 08:03:00 Test Item Value Reference Range Interpretation Comments Procalcitonin Lvl (test no gt See_Comment [Au tomated message] code = Procalcitonin Lvl) Th e system which generated this result transmitted ref erence range: <=0.10. The reference range was not used to interpr et this result as normal/abnormal . [facility] [id number] 08:03:00 Test Item Value Reference Range Interpretation Comments LDH (test code = LDH) 354 98-192 [facility] GreenvilleMaikroqYKEDSYPZLZ3063-47-86 08:03:00 Test Item Value Reference Range Interpretation Comments WBC (test code = WBC) 7.5 3.7-10.4 [facility] GreenvilleTaliielSGNJFKGFWA4133-37-46 08:03:00 Test Item Value Reference Range Interpretation Comments RBC (test code = RBC) 3.44 4.20-5.40 [facility] TexasLkgwddbFPNEHEVHTY8987-79-08 08:03:00 Test Item Value Reference Range Interpretation Comments Hgb (test code = Hgb) 8.3 12.0-16.0 [facility] GreenvilleMcihmrzQBDESFXAMI3037-20-93 08:03:00 Test Item Value Reference Range Interpretation Comments Hct (test code = Hct) 26.2 36.0-48.0 [facility] GreenvilleJthrohhFEXYCUSIPO3744-37-06 08:03:00 Test Item Value Reference Range Interpretation Comments MCV (test code = MCV) 76.1 80.0-98.0 [place] 778932-07-25 08:03:00 Test Item Value Reference Range Interpretation Comments MCH (test code = MCH) 24.0 pg 27.0-31.0 [place] 778932-07-25 08:03:00 Test Item Value Reference Range Interpretation Comments MCHC (test code = MCHC) 31.6 32.0-36.0 [place] 778932-07-25 08:03:00 Test Item Value Reference Range Interpretation Comments RDW (test code = RDW) 20.9 11.5-14.5 [place] 778932-07-25 08:03:00 Test Item Value Reference Range Interpretation Comments Platelet (test code = Platelet) 289 133-450 [place] 778932-07-25 08:03:00 Test Item Value Reference Range Interpretation Comments MPV (test code = MPV) 7.5 7.4-10.4 [place] 778932-07-25 08:03:00 Test Item Value Reference Range Interpretation Comments Segs (test code = Segs) 94.0 45.0-75.0 [place] 778932-07-25 08:03:00 Test Item Value Reference Range Interpretation Comments Lymphocytes (test code = Lymphocytes) 4.3 20.0-40.0 [place] 778932-07-25 08:03:00 Test Item Value Reference Range Interpretation Comments Monocytes (test code = Monocytes) 1.6 2.0-12.0 [place] [address]-07-25 08:03:00 Test Item Value Reference Range Interpretation Comments Basophils (test code = 0.1 See_Comment [Aut omated message] The Basophils) system which ge nerated this result tra nsmitted reference range : <=1.0. The reference r hugo was not used to int erpret this result as normal/abnormal . [facility] CenterQrqbuvgRHGNSVAEMV1899-17-95 08:03:00 Test Item Value Reference Range Interpretation Comments Neutrophils # (test code = Neutrophils 7.0 1.5-8.1 #) [place] 778932-07-25 08:03:00 Test Item Value Reference Range Interpretation Comments Lymphocytes # (test code = Lymphocytes 0.3 1.0-5.5 #) [facility] GreenvilleJdrswaeCWJPYDABTN7880-50-13 08:03:00 Test Item Value Reference Range Interpretation Comments Monocytes # (test code 0.1 See_Comment [Aut omated message] The = Monocytes #) system which generated this result tra nsmitted reference range : <=0.8. The reference r hugo was not used to int erpret this result as normal/abnormal . [facility]MkoguwcSAIECHICZR9328-68-02 08:03:00 Test Item Value Reference Range Interpretation Comments Microcyte (test code = 1+ *ABN*(06/13/22 Microcyte) 3:03 AM) [facility]villePrePay[facility] [id number] 08:03:00 Test Item Value Reference Range Interpretation Comments HS Troponin I 1 Hr (test code = HS 50 Troponin I 1 Hr) [facility] [id number] 08:03:00 Test Item Value Reference Range Interpretation Comments HS Troponin I 0 to 1 See Note 5(06/13/22 Hour Delta (test code = 3:03 AM) HS Troponin I 0 to 1 Hour Delta) [facility] [id number] 08:03:00 Test Item Value Reference Range Interpretation Comments Glucose Lvl (test code = Glucose Lvl) 142 70-99 [facility] [id number] 08:03:00 Test Item Value Reference Range Interpretation Comments BUN (test code = BUN) 21 - [facility] [id number] 08:03:00 Test Item Value Reference Range Interpretation Comments Creatinine Lvl (test code = Creatinine 0.84 0.50-1.40 Lvl) [facility] [id number] 08:03:00 Test Item Value Reference Range Interpretation Comments Sodium Lvl (test code = Sodium Lvl) 133 135-145 [facility] [id number] 08:03:00 Test Item Value Reference Range Interpretation Comments Potassium Lvl (test code = Potassium 4.4 3.5-5.1 Lvl) [facility] [id number] 08:03:00 Test Item Value Reference Range Interpretation Comments Chloride Lvl (test code = Chloride Lvl) 98 95-109 [facility] [id number] 08:03:00 Test Item Value Reference Range Interpretation Comments CO2 (test code = CO2) 25 24-32 [facility]2022-07-25 08:03:00 Test Item Value Reference Range Interpretation Comments AGAP (test code = AGAP) 14.4 10.0-20.0 [place] 852652-07-25 08:03:00 Test Item Value Reference Range Interpretation Comments Calcium Lvl (test code = Calcium Lvl) 9.1 8.5-10.5 [place] 852652-07-25 08:03:00 Test Item Value Reference Range Interpretation Comments B/C Ratio (test code = B/C Ratio) 25 1 6-25 [facility] TexasMelodigramEMILY [place]LE [id number] 08:03:00 Test Item Value Reference Range Interpretation Comments Total Protein (test code = Total 6.7 6.4-8.4 Protein) [place] 852652-07-25 08:03:00 Test Item Value Reference Range Interpretation Comments Albumin Lvl (test code = Albumin Lvl) 3.2 3.5-5.0 [place] 852652-07-25 08:03:00 Test Item Value Reference Range Interpretation Comments Globulin (test code = Globulin) 3.5 2.7-4.2 [facility] [id number] 08:03:00 Test Item Value Reference Range Interpretation Comments A/G Ratio (test code = A/G Ratio) 0.9 1 0.7-1.6 [facility]villeTriple[facility] [id number] 08:03:00 Test Item Value Reference Range Interpretation Comments ALT (test code = ALT) 19 See_Comment [Auto mated message] The system which ge nerated this result transmit lavon reference range : <=65. The reference range was not used to interpr et this result as doinne l/abnormal. [facility] [id number] 08:03:00 Test Item Value Reference Range Interpretation Comments AST (test code = AST) 26 See_Comment [Auto mated message] The system which ge nerated this result transmit lavon reference range : <=37. The reference range was not used to interpr et this result as dionne l/abnormal. [facility] [id number] 08:03:00 Test Item Value Reference Range Interpretation Comments Alk Phos (test code = Alk Phos) 56 39-136 [place] 852652-07-25 08:03:00 Test Item Value Reference Range Interpretation Comments Bili Total (test code = Bili Total) 1.0 0.2-1.3 [place] [address]-07-25 08:03:00 Test Item Value Reference Range Interpretation Comments eGFR (test code = eGFR) 67 [place] 852652-07-25 08:03:00 Test Item Value Reference Range Interpretation Comments Magnesium Lvl (test code = Magnesium 1.9 1.8-2.4 Lvl) [place] 852652-07-25 08:03:00 Test Item Value Reference Range Interpretation Comments Procalcitonin Lvl (test no gt See_Comment [Au tomated message] code = Procalcitonin Lvl) e system which generated this result transmitted ref erence range: <=0.10. The reference range was not used to interpr et this result as normal/abnormal . [place] 852652-07-25 08:03:00 Test Item Value Reference Range Interpretation Comments LDH (test code = LDH) 354 98-192 [place] 778932-07-25 08:03:00 Test Item Value Reference Range Interpretation Comments WBC (test code = WBC) 7.5 3.7-10.4 [place] [address]-07-25 08:03:00 Test Item Value Reference Range Interpretation Comments RBC (test code = RBC) 3.44 4.20-5.40 [place] [address]-07-25 08:03:00 Test Item Value Reference Range Interpretation Comments Hgb (test code = Hgb) 8.3 12.0-16.0 [place] [address]-07-25 08:03:00 Test Item Value Reference Range Interpretation Comments Hct (test code = Hct) 26.2 36.0-48.0 [place] [address]-07-25 08:03:00 Test Item Value Reference Range Interpretation Comments MCV (test code = MCV) 76.1 80.0-98.0 [place] [address]-07-25 08:03:00 Test Item Value Reference Range Interpretation Comments MCH (test code = MCH) 24.0 pg 27.0-31.0 [place] [address]-07-25 08:03:00 Test Item Value Reference Range Interpretation Comments MCHC (test code = MCHC) 31.6 32.0-36.0 [place] 778932-07-25 08:03:00 Test Item Value Reference Range Interpretation Comments RDW (test code = RDW) 20.9 11.5-14.5 [place] [address]-07-25 08:03:00 Test Item Value Reference Range Interpretation Comments Platelet (test code = Platelet) 289 133-450 [place] 778932-07-25 08:03:00 Test Item Value Reference Range Interpretation Comments MPV (test code = MPV) 7.5 7.4-10.4 [place] [address]-07-25 08:03:00 Test Item Value Reference Range Interpretation Comments Segs (test code = Segs) 94.0 45.0-75.0 [place] [address]-07-25 08:03:00 Test Item Value Reference Range Interpretation Comments Lymphocytes (test code = Lymphocytes) 4.3 20.0-40.0 [place] 778932-07-25 08:03:00 Test Item Value Reference Range Interpretation Comments Monocytes (test code = Monocytes) 1.6 2.0-12.0 [place] [address]-07-25 08:03:00 Test Item Value Reference Range Interpretation Comments Basophils (test code = 0.1 See_Comment [Aut omated message] The Basophils) system which ge nerated this result tra nsmitted reference range : <=1.0. The reference r hugo was not used to int erpret this result as normal/abnormal . [facility] CenterOsmkudbAEIJDNUDBZ1591-58-14 08:03:00 Test Item Value Reference Range Interpretation Comments Neutrophils # (test code = Neutrophils 7.0 1.5-8.1 #) [place] [address]-07-25 08:03:00 Test Item Value Reference Range Interpretation Comments Lymphocytes # (test code = Lymphocytes 0.3 1.0-5.5 #) [place] [address]-07-25 08:03:00 Test Item Value Reference Range Interpretation Comments Monocytes # (test code 0.1 See_Comment [Aut omated message] The = Monocytes #) system which generated this result tra nsmitted reference range : <=0.8. The reference r hugo was not used to int erpret this result as normal/abnormal . [facility] GreenvilleFiifwugPNXHLXPDYC4349-95-06 08:03:00 Test Item Value Reference Range Interpretation Comments Microcyte (test code = 1+ *ABN*(06/13/22 Microcyte) 3:03 AM) [facility] GreenvilleCARDIAC [id number] 08:03:00 Test Item Value Reference Range Interpretation Comments HS Troponin I 1 Hr (test code = HS 50 Troponin I 1 Hr) [facility] [id number] 08:03:00 Test Item Value Reference Range Interpretation Comments HS Troponin I 0 to 1 See Note 5(06/13/22 Hour Delta (test code = 3:03 AM) HS Troponin I 0 to 1 Hour Delta) [facility] [id number] 08:03:00 Test Item Value Reference Range Interpretation Comments Glucose Lvl (test code = Glucose Lvl) 142 70-99 [facility] [id number] 08:03:00 Test Item Value Reference Range Interpretation Comments BUN (test code = BUN) 21 06-10 [facility] [id number] 08:03:00 Test Item Value Reference Range Interpretation Comments Creatinine Lvl (test code = Creatinine 0.84 0.50-1.40 Lvl) [facility] [id number] 08:03:00 Test Item Value Reference Range Interpretation Comments Sodium Lvl (test code = Sodium Lvl) 133 135-145 [facility] [id number] 08:03:00 Test Item Value Reference Range Interpretation Comments Potassium Lvl (test code = Potassium 4.4 3.5-5.1 Lvl) [facility] [id number] 08:03:00 Test Item Value Reference Range Interpretation Comments Chloride Lvl (test code = Chloride Lvl) 98 95-109 [facility] [id number] 08:03:00 Test Item Value Reference Range Interpretation Comments CO2 (test code = CO2) 25 24-32 [facility]villeTri[facility] [id number] 08:03:00 Test Item Value Reference Range Interpretation Comments AGAP (test code = AGAP) 14.4 10.0-20.0 [facility] [id number] 08:03:00 Test Item Value Reference Range Interpretation Comments Calcium Lvl (test code = Calcium Lvl) 9.1 8.5-10.5 [facility] [id number] 08:03:00 Test Item Value Reference Range Interpretation Comments B/C Ratio (test code = B/C Ratio) 25 1 6-25 [facility] TexasMelodigramEMILY [place]LE [id number] 08:03:00 Test Item Value Reference Range Interpretation Comments Total Protein (test code = Total 6.7 6.4-8.4 Protein) [place] 852652-07-25 08:03:00 Test Item Value Reference Range Interpretation Comments Albumin Lvl (test code = Albumin Lvl) 3.2 3.5-5.0 [facility] [id number] 08:03:00 Test Item Value Reference Range Interpretation Comments Globulin (test code = Globulin) 3.5 2.7-4.2 [facility] TexasMelodigramEMILY [place]LE [id number] 08:03:00 Test Item Value Reference Range Interpretation Comments A/G Ratio (test code = A/G Ratio) 0.9 1 0.7-1.6 [facility]villeTri[facility] [id number] 08:03:00 Test Item Value Reference Range Interpretation Comments ALT (test code = ALT) 19 See_Comment [Auto mated message] The system which ge nerated this result transmit lavon reference range : <=65. The reference range was not used to interpr et this result as dionne l/abnormal. [facility] [id number] 08:03:00 Test Item Value Reference Range Interpretation Comments AST (test code = AST) 26 See_Comment [Auto mated message] The system which ge nerated this result transmit lavon reference range : <=37. The reference range was not used to interpr et this result as dionne l/abnormal. [facility] [id number] 08:03:00 Test Item Value Reference Range Interpretation Comments Alk Phos (test code = Alk Phos) 56 39-136 [facility] [id number] 08:03:00 Test Item Value Reference Range Interpretation Comments Bili Total (test code = Bili Total) 1.0 0.2-1.3 [facility]Tri[facility] [id number] 08:03:00 Test Item Value Reference Range Interpretation Comments eGFR (test code = eGFR) 67 [facility]villeN[facility] CENTERZPXEP6197-01-19 08:03:00 Test Item Value Reference Range Interpretation Comments Magnesium Lvl (test code = Magnesium 1.9 1.8-2.4 Lvl) [facility]2022-07-25 08:03:00 Test Item Value Reference Range Interpretation Comments Procalcitonin Lvl (test no gt See_Comment [Au tomated message] code = Procalcitonin Lvl) e system which generated this result transmitted ref erence range: <=0.10. The reference range was not used to interpr et this result as normal/abnormal . [facility]2022-07-25 08:03:00 Test Item Value Reference Range Interpretation Comments LDH (test code = LDH) 354 98-192 [facility] CenterMvedksbCDJEKISINT8889-01-18 08:03:00 Test Item Value Reference Range Interpretation Comments WBC (test code = WBC) 7.5 3.7-10.4 [facility] CenterHqfqvpuULJANPMUNP4506-20-33 08:03:00 Test Item Value Reference Range Interpretation Comments RBC (test code = RBC) 3.44 4.20-5.40 [facility] CenterAkcdfawEGDFQPNYHV4461-08-22 08:03:00 Test Item Value Reference Range Interpretation Comments Hgb (test code = Hgb) 8.3 12.0-16.0 [place] 778932-07-25 08:03:00 Test Item Value Reference Range Interpretation Comments Hct (test code = Hct) 26.2 36.0-48.0 [facility] CenterLxtnnpbKUUMOPYCWC7321-80-26 08:03:00 Test Item Value Reference Range Interpretation Comments MCV (test code = MCV) 76.1 80.0-98.0 [place] 778932-07-25 08:03:00 Test Item Value Reference Range Interpretation Comments MCH (test code = MCH) 24.0 pg 27.0-31.0 [place] 778932-07-25 08:03:00 Test Item Value Reference Range Interpretation Comments MCHC (test code = MCHC) 31.6 32.0-36.0 [place] [address]-07-25 08:03:00 Test Item Value Reference Range Interpretation Comments RDW (test code = RDW) 20.9 11.5-14.5 [place] 778932-07-25 08:03:00 Test Item Value Reference Range Interpretation Comments Platelet (test code = Platelet) 289 133-450 [facility] CenterSqptmigYQKRINQVVJ7984-21-33 08:03:00 Test Item Value Reference Range Interpretation Comments MPV (test code = MPV) 7.5 7.4-10.4 [facility] CenterJznapnuGXWMEKJKPB7122-15-31 08:03:00 Test Item Value Reference Range Interpretation Comments Segs (test code = Segs) 94.0 45.0-75.0 [facility] CenterYnmnfnnILAAVDZZMO2271-85-11 08:03:00 Test Item Value Reference Range Interpretation Comments Lymphocytes (test code = Lymphocytes) 4.3 20.0-40.0 [facility] CenterQzfyklvYALPVBUTNV3556-17-82 08:03:00 Test Item Value Reference Range Interpretation Comments Monocytes (test code = Monocytes) 1.6 2.0-12.0 [facility] CenterXsugtyxCUFAUOBBYC8542-19-24 08:03:00 Test Item Value Reference Range Interpretation Comments Basophils (test code = 0.1 See_Comment [Aut omated message] The Basophils) system which ge nerated this result tra nsmitted reference range : <=1.0. The reference r hugo was not used to int erpret this result as normal/abnormal . [facility] [id number] [facility]:03:00 Test Item Value Reference Range Interpretation Comments Neutrophils # (test code = Neutrophils 7.0 1.5-8.1 #) [facility]HkliohiFURQJTXYFJ1033-10-57 08:03:00 Test Item Value Reference Range Interpretation Comments Lymphocytes # (test code = Lymphocytes 0.3 1.0-5.5 #) [facility] CenterVosjfriAHUFWNSCKT3429-81-72 08:03:00 Test Item Value Reference Range Interpretation Comments Monocytes # (test code 0.1 See_Comment [Aut omated message] The = Monocytes #) system which generated this result tra nsmitted reference range : <=0.8. The reference r hugo was not used to int erpret this result as normal/abnormal . [facility] CenterCygkfswMZNVDBPZDP6129-08-63 08:03:00 Test Item Value Reference Range Interpretation Comments Microcyte (test code = 1+ *ABN*(06/13/22 Microcyte) 3:03 AM) [facility]2022-07-25 08:03:00 Test Item Value Reference Range Interpretation Comments HS Troponin I 1 Hr (test code = HS 50 Troponin I 1 Hr) [facility] [id number] 08:03:00 Test Item Value Reference Range Interpretation Comments HS Troponin I 0 to 1 See Note 5(06/13/22 Hour Delta (test code = 3:03 AM) HS Troponin I 0 to 1 Hour Delta) [facility] [id number] 08:03:00 Test Item Value Reference Range Interpretation Comments Glucose Lvl (test code = Glucose Lvl) 142 70-99 [facility] [id number] 08:03:00 Test Item Value Reference Range Interpretation Comments BUN (test code = BUN) 21 7- [facility]2022-07-25 08:03:00 Test Item Value Reference Range Interpretation Comments Creatinine Lvl (test code = Creatinine 0.84 0.50-1.40 Lvl) [facility] [id number] 08:03:00 Test Item Value Reference Range Interpretation Comments Sodium Lvl (test code = Sodium Lvl) 133 135-145 [facility] [id number] 08:03:00 Test Item Value Reference Range Interpretation Comments Potassium Lvl (test code = Potassium 4.4 3.5-5.1 Lvl) [facility] [id number] 08:03:00 Test Item Value Reference Range Interpretation Comments Chloride Lvl (test code = Chloride Lvl) 98 95-109 [facility] [id number] 08:03:00 Test Item Value Reference Range Interpretation Comments CO2 (test code = CO2) 25 24-32 [facility]2022-07-25 08:03:00 Test Item Value Reference Range Interpretation Comments AGAP (test code = AGAP) 14.4 10.0-20.0 [facility]2022-07-25 08:03:00 Test Item Value Reference Range Interpretation Comments Calcium Lvl (test code = Calcium Lvl) 9.1 8.5-10.5 [facility]2022-07-25 08:03:00 Test Item Value Reference Range Interpretation Comments B/C Ratio (test code = B/C Ratio) 25 1 6-25 [facility]2022-07-25 08:03:00 Test Item Value Reference Range Interpretation Comments Total Protein (test code = Total 6.7 6.4-8.4 Protein) [facility] [id number] 08:03:00 Test Item Value Reference Range Interpretation Comments Albumin Lvl (test code = Albumin Lvl) 3.2 3.5-5.0 [place] 852652-07-25 08:03:00 Test Item Value Reference Range Interpretation Comments Globulin (test code = Globulin) 3.5 2.7-4.2 [facility] [id number] 08:03:00 Test Item Value Reference Range Interpretation Comments A/G Ratio (test code = A/G Ratio) 0.9 1 0.7-1.6 [facility] [id number] 08:03:00 Test Item Value Reference Range Interpretation Comments ALT (test code = ALT) 19 See_Comment [Auto mated message] The system which ge nerated this result transmit lavon reference range : <=65. The reference range was not used to interpr et this result as dionne l/abnormal. [facility] [id number] 08:03:00 Test Item Value Reference Range Interpretation Comments AST (test code = AST) 26 See_Comment [Auto mated message] The system which ge nerated this result transmit lavon reference range : <=37. The reference range was not used to interpr et this result as dionne l/abnormal. [facility] [id number] 08:03:00 Test Item Value Reference Range Interpretation Comments Alk Phos (test code = Alk Phos) 56 39-136 [facility] [id number] 08:03:00 Test Item Value Reference Range Interpretation Comments Bili Total (test code = Bili Total) 1.0 0.2-1.3 [facility] [id number] 08:03:00 Test Item Value Reference Range Interpretation Comments eGFR (test code = eGFR) 67 [facility] [id number] 08:03:00 Test Item Value Reference Range Interpretation Comments Magnesium Lvl (test code = Magnesium 1.9 1.8-2.4 Lvl) [facility] [id number] 08:03:00 Test Item Value Reference Range Interpretation Comments Procalcitonin Lvl (test no gt See_Comment [Au tomated message] code = Procalcitonin Lvl) Th e system which generated this result transmitted ref erence range: <=0.10. The reference range was not used to interpr et this result as normal/abnormal . [facility]2022-07-25 08:03:00 Test Item Value Reference Range Interpretation Comments LDH (test code = LDH) 354 98-192 [facility] CenterAwozmciILSTXIFMPG8491-88-56 08:03:00 Test Item Value Reference Range Interpretation Comments WBC (test code = WBC) 7.5 3.7-10.4 [facility] CenterLtbocxhVTPVAYVFEK4440-80-38 08:03:00 Test Item Value Reference Range Interpretation Comments RBC (test code = RBC) 3.44 4.20-5.40 [place] 778932-07-25 08:03:00 Test Item Value Reference Range Interpretation Comments Hgb (test code = Hgb) 8.3 12.0-16.0 [facility] CenterHybyfnpTNXVYEDCMR0935-30-66 08:03:00 Test Item Value Reference Range Interpretation Comments Hct (test code = Hct) 26.2 36.0-48.0 [facility] CenterGfcvpqvSWRSBMJGOH6986-06-69 08:03:00 Test Item Value Reference Range Interpretation Comments MCV (test code = MCV) 76.1 80.0-98.0 [facility] CenterTvdydumCFYARSLFXP2550-40-22 08:03:00 Test Item Value Reference Range Interpretation Comments MCH (test code = MCH) 24.0 pg 27.0-31.0 [facility] CenterOemftmiWCLOTIWBCX9233-71-95 08:03:00 Test Item Value Reference Range Interpretation Comments MCHC (test code = MCHC) 31.6 32.0-36.0 [facility] CenterNulcxxxUCNWSCVYWU0652-73-70 08:03:00 Test Item Value Reference Range Interpretation Comments RDW (test code = RDW) 20.9 11.5-14.5 [place] 778932-07-25 08:03:00 Test Item Value Reference Range Interpretation Comments Platelet (test code = Platelet) 289 133-450 [facility] CenterHgyalwjPIQBKJWVJE2624-74-52 08:03:00 Test Item Value Reference Range Interpretation Comments MPV (test code = MPV) 7.5 7.4-10.4 [facility] CenterVblizwpATIGKJUNCX8926-71-18 08:03:00 Test Item Value Reference Range Interpretation Comments Segs (test code = Segs) 94.0 45.0-75.0 [facility] TexasLglucfeBHJCDJDATW4104-15-74 08:03:00 Test Item Value Reference Range Interpretation Comments Lymphocytes (test code = Lymphocytes) 4.3 20.0-40.0 [facility] GreenvilleLysqvhzAIUXRCLDDM0851-72-39 08:03:00 Test Item Value Reference Range Interpretation Comments Monocytes (test code = Monocytes) 1.6 2.0-12.0 [facility] GreenvilleAzkwfjmZUFGCRUQJT1122-70-64 08:03:00 Test Item Value Reference Range Interpretation Comments Basophils (test code = 0.1 See_Comment [Aut omated message] The Basophils) system which ge nerated this result tra nsmitted reference range : <=1.0. The reference r hugo was not used to int erpret this result as normal/abnormal . [facility] TexasEqgtygxDSBMXTDBTL8676-72-65 08:03:00 Test Item Value Reference Range Interpretation Comments Neutrophils # (test code = Neutrophils 7.0 1.5-8.1 #) [facility] GreenvilleJqpfaitEYXYVJJKRH9844-61-03 08:03:00 Test Item Value Reference Range Interpretation Comments Lymphocytes # (test code = Lymphocytes 0.3 1.0-5.5 #) [facility] TexasOvpparhNPXLGYQXGH9653-21-20 08:03:00 Test Item Value Reference Range Interpretation Comments Monocytes # (test code 0.1 See_Comment [Aut omated message] The = Monocytes #) system which generated this result tra nsmitted reference range : <=0.8. The reference r hugo was not used to int erpret this result as normal/abnormal . [facility] TexasFgfhpsaFUMEXWEOHD0441-12-91 08:03:00 Test Item Value Reference Range Interpretation Comments Microcyte (test code = 1+ *ABN*(06/13/22 Microcyte) 3:03 AM) [facility] [employer]2022-07-25 08:03:00 Test Item Value Reference Range Interpretation Comments HS Troponin I 1 Hr (test code = HS 50 Troponin I 1 Hr) [facility] [id number] 08:03:00 Test Item Value Reference Range Interpretation Comments HS Troponin I 0 to 1 See Note 5(06/13/22 Hour Delta (test code = 3:03 AM) HS Troponin I 0 to 1 Hour Delta) [place] 852652-07-25 08:03:00 Test Item Value Reference Range Interpretation Comments Glucose Lvl (test code = Glucose Lvl) 142 70-99 [place] 852652-07-25 08:03:00 Test Item Value Reference Range Interpretation Comments BUN (test code = BUN) 21 7-22 [place] 852652-07-25 08:03:00 Test Item Value Reference Range Interpretation Comments Creatinine Lvl (test code = Creatinine 0.84 0.50-1.40 Lvl) [place] 852652-07-25 08:03:00 Test Item Value Reference Range Interpretation Comments Sodium Lvl (test code = Sodium Lvl) 133 135-145 [place] 852652-07-25 08:03:00 Test Item Value Reference Range Interpretation Comments Potassium Lvl (test code = Potassium 4.4 3.5-5.1 Lvl) [facility]2022-07-25 08:03:00 Test Item Value Reference Range Interpretation Comments Chloride Lvl (test code = Chloride Lvl) 98 95-109 [place] 852652-07-25 08:03:00 Test Item Value Reference Range Interpretation Comments CO2 (test code = CO2) 25 24-32 [place] 852652-07-25 08:03:00 Test Item Value Reference Range Interpretation Comments AGAP (test code = AGAP) 14.4 10.0-20.0 [place] 852652-07-25 08:03:00 Test Item Value Reference Range Interpretation Comments Calcium Lvl (test code = Calcium Lvl) 9.1 8.5-10.5 [place] 852652-07-25 08:03:00 Test Item Value Reference Range Interpretation Comments B/C Ratio (test code = B/C Ratio) 25 1 6-25 [place] 852652-07-25 08:03:00 Test Item Value Reference Range Interpretation Comments Total Protein (test code = Total 6.7 6.4-8.4 Protein) [place] 852652-07-25 08:03:00 Test Item Value Reference Range Interpretation Comments Albumin Lvl (test code = Albumin Lvl) 3.2 3.5-5.0 [place] 852652-07-25 08:03:00 Test Item Value Reference Range Interpretation Comments Globulin (test code = Globulin) 3.5 2.7-4.2 [facility] [id number] 08:03:00 Test Item Value Reference Range Interpretation Comments A/G Ratio (test code = A/G Ratio) 0.9 1 0.7-1.6 [facility] TexasMelodigramEMILY [place] [id number] 08:03:00 Test Item Value Reference Range Interpretation Comments ALT (test code = ALT) 19 See_Comment [Auto mated message] The system which ge nerated this result transmit lavon reference range : <=65. The reference range was not used to interpr et this result as dionne l/abnormal. [facility] [id number] 08:03:00 Test Item Value Reference Range Interpretation Comments AST (test code = AST) 26 See_Comment [Auto mated message] The system which ge nerated this result transmit lavon reference range : <=37. The reference range was not used to interpr et this result as dionne l/abnormal. [facility] [id number] 08:03:00 Test Item Value Reference Range Interpretation Comments Alk Phos (test code = Alk Phos) 56 39-136 [facility] [id number] 08:03:00 Test Item Value Reference Range Interpretation Comments Bili Total (test code = Bili Total) 1.0 0.2-1.3 [facility] [id number] 08:03:00 Test Item Value Reference Range Interpretation Comments eGFR (test code = eGFR) 67 [facility] [id number] 08:03:00 Test Item Value Reference Range Interpretation Comments Magnesium Lvl (test code = Magnesium 1.9 1.8-2.4 Lvl) [facility] [id number] 08:03:00 Test Item Value Reference Range Interpretation Comments Procalcitonin Lvl (test no gt See_Comment [Au tomated message] code = Procalcitonin Lvl) Th e system which generated this result transmitted ref erence range: <=0.10. The reference range was not used to interpr et this result as normal/abnormal . [facility] [id number] 08:03:00 Test Item Value Reference Range Interpretation Comments LDH (test code = LDH) 354 98-192 [place] 778932-07-25 08:03:00 Test Item Value Reference Range Interpretation Comments WBC (test code = WBC) 7.5 3.7-10.4 [place] 778932-07-25 08:03:00 Test Item Value Reference Range Interpretation Comments RBC (test code = RBC) 3.44 4.20-5.40 [place] 778932-07-25 08:03:00 Test Item Value Reference Range Interpretation Comments Hgb (test code = Hgb) 8.3 12.0-16.0 [place] 778932-07-25 08:03:00 Test Item Value Reference Range Interpretation Comments Hct (test code = Hct) 26.2 36.0-48.0 [place] 778932-07-25 08:03:00 Test Item Value Reference Range Interpretation Comments MCV (test code = MCV) 76.1 80.0-98.0 [place] [address]-07-25 08:03:00 Test Item Value Reference Range Interpretation Comments MCH (test code = MCH) 24.0 pg 27.0-31.0 [place] 778932-07-25 08:03:00 Test Item Value Reference Range Interpretation Comments MCHC (test code = MCHC) 31.6 32.0-36.0 [place] 778932-07-25 08:03:00 Test Item Value Reference Range Interpretation Comments RDW (test code = RDW) 20.9 11.5-14.5 [place] 778932-07-25 08:03:00 Test Item Value Reference Range Interpretation Comments Platelet (test code = Platelet) 289 133-450 [place] 778932-07-25 08:03:00 Test Item Value Reference Range Interpretation Comments MPV (test code = MPV) 7.5 7.4-10.4 [place] [address]-07-25 08:03:00 Test Item Value Reference Range Interpretation Comments Segs (test code = Segs) 94.0 45.0-75.0 [place] [address]-07-25 08:03:00 Test Item Value Reference Range Interpretation Comments Lymphocytes (test code = Lymphocytes) 4.3 20.0-40.0 [place] 778932-07-25 08:03:00 Test Item Value Reference Range Interpretation Comments Monocytes (test code = Monocytes) 1.6 2.0-12.0 [facility] TexasCxufucsNKUFZNJWCL2488-12-47 08:03:00 Test Item Value Reference Range Interpretation Comments Basophils (test code = 0.1 See_Comment [Aut omated message] The Basophils) system which ge nerated this result tra nsmitted reference range : <=1.0. The reference r hugo was not used to int erpret this result as normal/abnormal . [facility] TexasPxbktmvSUNKMYUSZT0475-42-81 08:03:00 Test Item Value Reference Range Interpretation Comments Neutrophils # (test code = Neutrophils 7.0 1.5-8.1 #) [facility] TexasXeomenfQBAZIXQAME5928-08-03 08:03:00 Test Item Value Reference Range Interpretation Comments Lymphocytes # (test code = Lymphocytes 0.3 1.0-5.5 #) [facility] TexasBjkgijvCJGDGATSTV9758-81-87 08:03:00 Test Item Value Reference Range Interpretation Comments Monocytes # (test code 0.1 See_Comment [Aut omated message] The = Monocytes #) system which generated this result tra nsmitted reference range : <=0.8. The reference r hugo was not used to int erpret this result as normal/abnormal . [facility] TexasRitaoheBIVFHRGHPJ8269-15-59 08:03:00 Test Item Value Reference Range Interpretation Comments Microcyte (test code = 1+ *ABN*(06/13/22 Microcyte) 3:03 AM) [facility] [employer]2022-07-25 08:03:00 Test Item Value Reference Range Interpretation Comments HS Troponin I 1 Hr (test code = HS 50 Troponin I 1 Hr) [facility] [employer]2022-07-25 08:03:00 Test Item Value Reference Range Interpretation Comments HS Troponin I 0 to 1 See Note 5(06/13/22 Hour Delta (test code = 3:03 AM) HS Troponin I 0 to 1 Hour Delta) [facility] [employer]2022-07-25 08:03:00 Test Item Value Reference Range Interpretation Comments Glucose Lvl (test code = Glucose Lvl) 142 70-99 [facility] [employer]2022-07-25 08:03:00 Test Item Value Reference Range Interpretation Comments BUN (test code = BUN) 21 06-10 [facility] [employer] Fun2-07-25 08:03:00 Test Item Value Reference Range Interpretation Comments Creatinine Lvl (test code = Creatinine 0.84 0.50-1.40 Lvl) [place] 852652-07-25 08:03:00 Test Item Value Reference Range Interpretation Comments Sodium Lvl (test code = Sodium Lvl) 133 135-145 [place] 852652-07-25 08:03:00 Test Item Value Reference Range Interpretation Comments Potassium Lvl (test code = Potassium 4.4 3.5-5.1 Lvl) [place] 852652-07-25 08:03:00 Test Item Value Reference Range Interpretation Comments Chloride Lvl (test code = Chloride Lvl) 98 95-109 [place] 852652-07-25 08:03:00 Test Item Value Reference Range Interpretation Comments CO2 (test code = CO2) 24-32 [place] 852652-07-25 08:03:00 Test Item Value Reference Range Interpretation Comments AGAP (test code = AGAP) 14.4 10.0-20.0 [place] 852652-07-25 08:03:00 Test Item Value Reference Range Interpretation Comments Calcium Lvl (test code = Calcium Lvl) 9.1 8.5-10.5 [place] 852652-07-25 08:03:00 Test Item Value Reference Range Interpretation Comments B/C Ratio (test code = B/C Ratio) 25 1 6-25 [place] 852652-07-25 08:03:00 Test Item Value Reference Range Interpretation Comments Total Protein (test code = Total 6.7 6.4-8.4 Protein) [place] 852652-07-25 08:03:00 Test Item Value Reference Range Interpretation Comments Albumin Lvl (test code = Albumin Lvl) 3.2 3.5-5.0 [place] 852652-07-25 08:03:00 Test Item Value Reference Range Interpretation Comments Globulin (test code = Globulin) 3.5 2.7-4.2 [place] 852652-07-25 08:03:00 Test Item Value Reference Range Interpretation Comments A/G Ratio (test code = A/G Ratio) 0.9 1 0.7-1.6 [place] 852652-07-25 08:03:00 Test Item Value Reference Range Interpretation Comments ALT (test code = ALT) 19 See_Comment [Auto mated message] The system which ge nerated this result transmit lavon reference range : <=65. The reference range was not used to interpr et this result as dionne l/abnormal. [facility] [employer] [id number] 08:03:00 Test Item Value Reference Range Interpretation Comments AST (test code = AST) 26 See_Comment [Auto mated message] The system which ge nerated this result transmit lavon reference range : <=37. The reference range was not used to interpr et this result as dionne l/abnormal. [facility] [employer] [id number] 08:03:00 Test Item Value Reference Range Interpretation Comments Alk Phos (test code = Alk Phos) 56 39-136 [facility] [employer] [id number] 08:03:00 Test Item Value Reference Range Interpretation Comments Bili Total (test code = Bili Total) 1.0 0.2-1.3 [facility] [employer] [id number] 08:03:00 Test Item Value Reference Range Interpretation Comments eGFR (test code = eGFR) 67 [facility] [id number] 08:03:00 Test Item Value Reference Range Interpretation Comments Magnesium Lvl (test code = Magnesium 1.9 1.8-2.4 Lvl) [facility] [id number] 08:03:00 Test Item Value Reference Range Interpretation Comments Procalcitonin Lvl (test no gt See_Comment [Au tomated message] code = Procalcitonin Lvl) Th e system which generated this result transmitted ref erence range: <=0.10. The reference range was not used to interpr et this result as normal/abnormal . [facility] [employer] [id number] 08:03:00 Test Item Value Reference Range Interpretation Comments LDH (test code = LDH) 354 98-192 [facility] GreenvilleRpwlppdTOODDITOCF7195-53-85 08:03:00 Test Item Value Reference Range Interpretation Comments WBC (test code = WBC) 7.5 3.7-10.4 [facility] TexasNazjtwiEFAKJBSOTI6025-80-17 08:03:00 Test Item Value Reference Range Interpretation Comments RBC (test code = RBC) 3.44 4.20-5.40 [place] 778932-07-25 08:03:00 Test Item Value Reference Range Interpretation Comments Hgb (test code = Hgb) 8.3 12.0-16.0 [place] 778932-07-25 08:03:00 Test Item Value Reference Range Interpretation Comments Hct (test code = Hct) 26.2 36.0-48.0 [place] 778932-07-25 08:03:00 Test Item Value Reference Range Interpretation Comments MCV (test code = MCV) 76.1 80.0-98.0 [place] 778932-07-25 08:03:00 Test Item Value Reference Range Interpretation Comments MCH (test code = MCH) 24.0 pg 27.0-31.0 [place] 778932-07-25 08:03:00 Test Item Value Reference Range Interpretation Comments MCHC (test code = MCHC) 31.6 32.0-36.0 [place] 778932-07-25 08:03:00 Test Item Value Reference Range Interpretation Comments RDW (test code = RDW) 20.9 11.5-14.5 [place] 778932-07-25 08:03:00 Test Item Value Reference Range Interpretation Comments Platelet (test code = Platelet) 289 133-450 [facility] CenterOsamfpfMAQZRPBFNI5051-42-55 08:03:00 Test Item Value Reference Range Interpretation Comments MPV (test code = MPV) 7.5 7.4-10.4 [place] 778932-07-25 08:03:00 Test Item Value Reference Range Interpretation Comments Segs (test code = Segs) 94.0 45.0-75.0 [place] 778932-07-25 08:03:00 Test Item Value Reference Range Interpretation Comments Lymphocytes (test code = Lymphocytes) 4.3 20.0-40.0 [place] [address]-07-25 08:03:00 Test Item Value Reference Range Interpretation Comments Monocytes (test code = Monocytes) 1.6 2.0-12.0 [place] [address]-07-25 08:03:00 Test Item Value Reference Range Interpretation Comments Basophils (test code = 0.1 See_Comment [Aut omated message] The Basophils) system which ge nerated this result tra nsmitted reference range : <=1.0. The reference r hugo was not used to int erpret this result as normal/abnormal . [facility] GreenvilleAayvxdnGVWETYBCUF3642-01-60 08:03:00 Test Item Value Reference Range Interpretation Comments Neutrophils # (test code = Neutrophils 7.0 1.5-8.1 #) [facility]uj[facility]ulKSMRPOSXBI2142-31-91 08:03:00 Test Item Value Reference Range Interpretation Comments Lymphocytes # (test code = Lymphocytes 0.3 1.0-5.5 #) [facility] CenterHyrruwbSEEITFFUSJ9033-62-34 08:03:00 Test Item Value Reference Range Interpretation Comments Monocytes # (test code 0.1 See_Comment [Aut omated message] The = Monocytes #) system which generated this result tra nsmitted reference range : <=0.8. The reference r hugo was not used to int erpret this result as normal/abnormal . [facility] CenterOrojilgSJNESMVPNK3814-17-10 08:03:00 Test Item Value Reference Range Interpretation Comments Microcyte (test code = 1+ *ABN*(06/13/22 Microcyte) 3:03 AM) [facility] ZVQYCZO3024-06-32 08:03:00 Test Item Value Reference Range Interpretation Comments HS Troponin I 1 Hr (test code = HS 50 Troponin I 1 Hr) [facility] [id number] 08:03:00 Test Item Value Reference Range Interpretation Comments HS Troponin I 0 to 1 See Note 5(06/13/22 Hour Delta (test code = 3:03 AM) HS Troponin I 0 to 1 Hour Delta) [facility]Fre[facility] Holdings, [id number] 08:03:00 Test Item Value Reference Range Interpretation Comments Glucose Lvl (test code = Glucose Lvl) 142 70-99 [facility]Fre[facility] Holdings, [id number] 08:03:00 Test Item Value Reference Range Interpretation Comments BUN (test code = BUN) 21 - [facility] [id number] 08:03:00 Test Item Value Reference Range Interpretation Comments Creatinine Lvl (test code = Creatinine 0.84 0.50-1.40 Lvl) [facility] [id number] 08:03:00 Test Item Value Reference Range Interpretation Comments Sodium Lvl (test code = Sodium Lvl) 133 135-145 [facility] [id number] 08:03:00 Test Item Value Reference Range Interpretation Comments Potassium Lvl (test code = Potassium 4.4 3.5-5.1 Lvl) [place] 852652-07-25 08:03:00 Test Item Value Reference Range Interpretation Comments Chloride Lvl (test code = Chloride Lvl) 98 95-109 [place] 852652-07-25 08:03:00 Test Item Value Reference Range Interpretation Comments CO2 (test code = CO2) 25 24-32 [place] 852652-07-25 08:03:00 Test Item Value Reference Range Interpretation Comments AGAP (test code = AGAP) 14.4 10.0-20.0 [place] 852652-07-25 08:03:00 Test Item Value Reference Range Interpretation Comments Calcium Lvl (test code = Calcium Lvl) 9.1 8.5-10.5 [place] 852652-07-25 08:03:00 Test Item Value Reference Range Interpretation Comments B/C Ratio (test code = B/C Ratio) 25 1 6-25 [place] 852652-07-25 08:03:00 Test Item Value Reference Range Interpretation Comments Total Protein (test code = Total 6.7 6.4-8.4 Protein) [place] 852652-07-25 08:03:00 Test Item Value Reference Range Interpretation Comments Albumin Lvl (test code = Albumin Lvl) 3.2 3.5-5.0 [place] 852652-07-25 08:03:00 Test Item Value Reference Range Interpretation Comments Globulin (test code = Globulin) 3.5 2.7-4.2 [place] 852652-07-25 08:03:00 Test Item Value Reference Range Interpretation Comments A/G Ratio (test code = A/G Ratio) 0.9 1 0.7-1.6 [place] 852652-07-25 08:03:00 Test Item Value Reference Range Interpretation Comments ALT (test code = ALT) 19 See_Comment [Auto mated message] The system which ge nerated this result transmit lavon reference range : <=65. The reference range was not used to interpr et this result as dionne l/abnormal. [place] 852652-07-25 08:03:00 Test Item Value Reference Range Interpretation Comments AST (test code = AST) 26 See_Comment [Auto mated message] The system which ge nerated this result transmit lavon reference range : <=37. The reference range was not used to interpr et this result as dionne l/abnormal. [facility] [id number] 08:03:00 Test Item Value Reference Range Interpretation Comments Alk Phos (test code = Alk Phos) 56 39-136 [facility] [id number] 08:03:00 Test Item Value Reference Range Interpretation Comments Bili Total (test code = Bili Total) 1.0 0.2-1.3 [facility] [id number] 08:03:00 Test Item Value Reference Range Interpretation Comments eGFR (test code = eGFR) 67 [facility] [id number] 08:03:00 Test Item Value Reference Range Interpretation Comments Magnesium Lvl (test code = Magnesium 1.9 1.8-2.4 Lvl) [facility] [id number] 08:03:00 Test Item Value Reference Range Interpretation Comments Procalcitonin Lvl (test no gt See_Comment [Au tomated message] code = Procalcitonin Lvl) Th e system which generated this result transmitted ref erence range: <=0.10. The reference range was not used to interpr et this result as normal/abnormal . [facility] [id number] 08:03:00 Test Item Value Reference Range Interpretation Comments LDH (test code = LDH) 354 98-192 [facility] GreenvilleQllolwyWWJMZVQRGV1035-50-12 08:03:00 Test Item Value Reference Range Interpretation Comments WBC (test code = WBC) 7.5 3.7-10.4 [facility] GreenvilleIeyjqsaIGZAIEAEPX6656-56-32 08:03:00 Test Item Value Reference Range Interpretation Comments RBC (test code = RBC) 3.44 4.20-5.40 [place] [address]-07-25 08:03:00 Test Item Value Reference Range Interpretation Comments Hgb (test code = Hgb) 8.3 12.0-16.0 [place] [address]-07-25 08:03:00 Test Item Value Reference Range Interpretation Comments Hct (test code = Hct) 26.2 36.0-48.0 [address]07-25 08:03:00 Test Item Value Reference Range Interpretation Comments MCV (test code = MCV) 76.1 80.0-98.0 [place] [address]-07-25 08:03:00 Test Item Value Reference Range Interpretation Comments MCH (test code = MCH) 24.0 pg 27.0-31.0 [place] 778932-07-25 08:03:00 Test Item Value Reference Range Interpretation Comments MCHC (test code = MCHC) 31.6 32.0-36.0 [place] 778932-07-25 08:03:00 Test Item Value Reference Range Interpretation Comments RDW (test code = RDW) 20.9 11.5-14.5 [place] [address]-07-25 08:03:00 Test Item Value Reference Range Interpretation Comments Platelet (test code = Platelet) 289 133-450 [place] 778932-07-25 08:03:00 Test Item Value Reference Range Interpretation Comments MPV (test code = MPV) 7.5 7.4-10.4 [place] 778932-07-25 08:03:00 Test Item Value Reference Range Interpretation Comments Segs (test code = Segs) 94.0 45.0-75.0 [place] 778932-07-25 08:03:00 Test Item Value Reference Range Interpretation Comments Lymphocytes (test code = Lymphocytes) 4.3 20.0-40.0 [place] 778932-07-25 08:03:00 Test Item Value Reference Range Interpretation Comments Monocytes (test code = Monocytes) 1.6 2.0-12.0 [place] 778932-07-25 08:03:00 Test Item Value Reference Range Interpretation Comments Basophils (test code = 0.1 See_Comment [Aut omated message] The Basophils) system which ge nerated this result tra nsmitted reference range : <=1.0. The reference r hugo was not used to int erpret this result as normal/abnormal . [place] 778932-07-25 08:03:00 Test Item Value Reference Range Interpretation Comments Neutrophils # (test code = Neutrophils 7.0 1.5-8.1 #) [place] 778932-07-25 08:03:00 Test Item Value Reference Range Interpretation Comments Lymphocytes # (test code = Lymphocytes 0.3 1.0-5.5 #) [facility] GreenvilleCnkagffVHKRCHLCEU4293-97-22 08:03:00 Test Item Value Reference Range Interpretation Comments Monocytes # (test code 0.1 See_Comment [Aut omated message] The = Monocytes #) system which generated this result tra nsmitted reference range : <=0.8. The reference r hugo was not used to int erpret this result as normal/abnormal . [facility] GreenvilleUadjlnqVHEYMICOUJ6942-39-32 08:03:00 Test Item Value Reference Range Interpretation Comments Microcyte (test code = 1+ *ABN*(06/13/22 Microcyte) 3:03 AM) [facility] [id number] 08:03:00 Test Item Value Reference Range Interpretation Comments HS Troponin I 1 Hr (test code = HS 50 Troponin I 1 Hr) [facility] TexasGet[facility] [id number] 08:03:00 Test Item Value Reference Range Interpretation Comments HS Troponin I 0 to 1 See Note 5(06/13/22 Hour Delta (test code = 3:03 AM) HS Troponin I 0 to 1 Hour Delta) [facility] [id number] 08:03:00 Test Item Value Reference Range Interpretation Comments Glucose Lvl (test code = Glucose Lvl) 142 70-99 [facility] [id number] 08:03:00 Test Item Value Reference Range Interpretation Comments BUN (test code = BUN) 21 - [facility] [id number] 08:03:00 Test Item Value Reference Range Interpretation Comments Creatinine Lvl (test code = Creatinine 0.84 0.50-1.40 Lvl) [facility] TexasFre[facility] Scientific Holdings, [id number] 08:03:00 Test Item Value Reference Range Interpretation Comments Sodium Lvl (test code = Sodium Lvl) 133 135-145 [facility] [id number] 08:03:00 Test Item Value Reference Range Interpretation Comments Potassium Lvl (test code = Potassium 4.4 3.5-5.1 Lvl) [facility] [id number] 08:03:00 Test Item Value Reference Range Interpretation Comments Chloride Lvl (test code = Chloride Lvl) 98 95-109 [facility] [id number] 08:03:00 Test Item Value Reference Range Interpretation Comments CO2 (test code = CO2) 25 24-32 [place] 852652-07-25 08:03:00 Test Item Value Reference Range Interpretation Comments AGAP (test code = AGAP) 14.4 10.0-20.0 [place] 852652-07-25 08:03:00 Test Item Value Reference Range Interpretation Comments Calcium Lvl (test code = Calcium Lvl) 9.1 8.5-10.5 [place] 852652-07-25 08:03:00 Test Item Value Reference Range Interpretation Comments B/C Ratio (test code = B/C Ratio) 25 1 6-25 [place] 852652-07-25 08:03:00 Test Item Value Reference Range Interpretation Comments Total Protein (test code = Total 6.7 6.4-8.4 Protein) [place] 852652-07-25 08:03:00 Test Item Value Reference Range Interpretation Comments Albumin Lvl (test code = Albumin Lvl) 3.2 3.5-5.0 [place] 852652-07-25 08:03:00 Test Item Value Reference Range Interpretation Comments Globulin (test code = Globulin) 3.5 2.7-4.2 [place] 852652-07-25 08:03:00 Test Item Value Reference Range Interpretation Comments A/G Ratio (test code = A/G Ratio) 0.9 1 0.7-1.6 [place] 852652-07-25 08:03:00 Test Item Value Reference Range Interpretation Comments ALT (test code = ALT) 19 See_Comment [Auto mated message] The system which ge nerated this result transmit lavon reference range : <=65. The reference range was not used to interpr et this result as dionne l/abnormal. [facility] [id number] 08:03:00 Test Item Value Reference Range Interpretation Comments AST (test code = AST) 26 See_Comment [Auto mated message] The system which ge nerated this result transmit lavon reference range : <=37. The reference range was not used to interpr et this result as dionne l/abnormal. [facility] [id number] 08:03:00 Test Item Value Reference Range Interpretation Comments Alk Phos (test code = Alk Phos) 56 39-136 [facility]2022-07-25 08:03:00 Test Item Value Reference Range Interpretation Comments Bili Total (test code = Bili Total) 1.0 0.2-1.3 [facility]2022-07-25 08:03:00 Test Item Value Reference Range Interpretation Comments eGFR (test code = eGFR) 67 [place] 852652-07-25 08:03:00 Test Item Value Reference Range Interpretation Comments Magnesium Lvl (test code = Magnesium 1.9 1.8-2.4 Lvl) [place] 852652-07-25 08:03:00 Test Item Value Reference Range Interpretation Comments Procalcitonin Lvl (test no gt See_Comment [Au tomated message] code = Procalcitonin Lvl) e system which generated this result transmitted ref erence range: <=0.10. The reference range was not used to interpr et this result as normal/abnormal . [facility]2022-07-25 08:03:00 Test Item Value Reference Range Interpretation Comments LDH (test code = LDH) 354 98-192 [facility] CenterYpkxnskGTCEKSFYFK8421-34-62 08:03:00 Test Item Value Reference Range Interpretation Comments WBC (test code = WBC) 7.5 3.7-10.4 [place] 778932-07-25 08:03:00 Test Item Value Reference Range Interpretation Comments RBC (test code = RBC) 3.44 4.20-5.40 [place] 778932-07-25 08:03:00 Test Item Value Reference Range Interpretation Comments Hgb (test code = Hgb) 8.3 12.0-16.0 [place] [address]-07-25 08:03:00 Test Item Value Reference Range Interpretation Comments Hct (test code = Hct) 26.2 36.0-48.0 [place] [address]-07-25 08:03:00 Test Item Value Reference Range Interpretation Comments MCV (test code = MCV) 76.1 80.0-98.0 [place] 778932-07-25 08:03:00 Test Item Value Reference Range Interpretation Comments MCH (test code = MCH) 24.0 pg 27.0-31.[address]07-25 08:03:00 Test Item Value Reference Range Interpretation Comments MCHC (test code = MCHC) 31.6 32.0-36.0 [place] 778932-07-25 08:03:00 Test Item Value Reference Range Interpretation Comments RDW (test code = RDW) 20.9 11.5-14.5 [place] 778932-07-25 08:03:00 Test Item Value Reference Range Interpretation Comments Platelet (test code = Platelet) 289 133-450 [facility] CenterSagwvcjNITLOAOCEF3936-61-89 08:03:00 Test Item Value Reference Range Interpretation Comments MPV (test code = MPV) 7.5 7.4-10.4 [place] 778932-07-25 08:03:00 Test Item Value Reference Range Interpretation Comments Segs (test code = Segs) 94.0 45.0-75.0 [place] 778932-07-25 08:03:00 Test Item Value Reference Range Interpretation Comments Lymphocytes (test code = Lymphocytes) 4.3 20.0-40.0 [facility] CenterIoldiprCGKXBESEIU7954-90-70 08:03:00 Test Item Value Reference Range Interpretation Comments Monocytes (test code = Monocytes) 1.6 2.0-12.0 [place] [address]-07-25 08:03:00 Test Item Value Reference Range Interpretation Comments Basophils (test code = 0.1 See_Comment [Aut omated message] The Basophils) system which ge nerated this result tra nsmitted reference range : <=1.0. The reference r hugo was not used to int erpret this result as normal/abnormal . [facility] CenterSjqizvtQJZRRMXTEU7039-04-56 08:03:00 Test Item Value Reference Range Interpretation Comments Neutrophils # (test code = Neutrophils 7.0 1.5-8.1 #) [place] 778932-07-25 08:03:00 Test Item Value Reference Range Interpretation Comments Lymphocytes # (test code = Lymphocytes 0.3 1.0-5.5 #) [place] [address]-07-25 08:03:00 Test Item Value Reference Range Interpretation Comments Monocytes # (test code 0.1 See_Comment [Aut omated message] The = Monocytes #) system which generated this result tra nsmitted reference range : <=0.8. The reference r hugo was not used to int erpret this result as normal/abnormal . [facility]Ict[facility]wljACSJIFNIKF5157-53-20 08:03:00 Test Item Value Reference Range Interpretation Comments Microcyte (test code = 1+ *ABN*(06/13/22 Microcyte) 3:03 AM) [facility] [id number] 08:03:00 Test Item Value Reference Range Interpretation Comments HS Troponin I 1 Hr (test code = HS 50 Troponin I 1 Hr) [facility] [id number] 08:03:00 Test Item Value Reference Range Interpretation Comments HS Troponin I 0 to 1 See Note 5(06/13/22 Hour Delta (test code = 3:03 AM) HS Troponin I 0 to 1 Hour Delta) [facility]2022-07-25 08:03:00 Test Item Value Reference Range Interpretation Comments Glucose Lvl (test code = Glucose Lvl) 142 70-99 [facility]2022-07-25 08:03:00 Test Item Value Reference Range Interpretation Comments BUN (test code = BUN) 21 06-10 [facility]2022-07-25 08:03:00 Test Item Value Reference Range Interpretation Comments Creatinine Lvl (test code = Creatinine 0.84 0.50-1.40 Lvl) [facility]2022-07-25 08:03:00 Test Item Value Reference Range Interpretation Comments Sodium Lvl (test code = Sodium Lvl) 133 135-145 [facility]2022-07-25 08:03:00 Test Item Value Reference Range Interpretation Comments Potassium Lvl (test code = Potassium 4.4 3.5-5.1 Lvl) [facility]2022-07-25 08:03:00 Test Item Value Reference Range Interpretation Comments Chloride Lvl (test code = Chloride Lvl) 98 95-109 [facility]2022-07-25 08:03:00 Test Item Value Reference Range Interpretation Comments CO2 (test code = CO2) -32 [facility]2022-07-25 08:03:00 Test Item Value Reference Range Interpretation Comments AGAP (test code = AGAP) 14.4 10.0-20.0 [facility]2022-07-25 08:03:00 Test Item Value Reference Range Interpretation Comments Calcium Lvl (test code = Calcium Lvl) 9.1 8.5-10.5 [facility] TexasMelodigramEMILY [place] [id number] 08:03:00 Test Item Value Reference Range Interpretation Comments B/C Ratio (test code = B/C Ratio) 25 1 6-25 [place] 852652-07-25 08:03:00 Test Item Value Reference Range Interpretation Comments Total Protein (test code = Total 6.7 6.4-8.4 Protein) [place] 852652-07-25 08:03:00 Test Item Value Reference Range Interpretation Comments Albumin Lvl (test code = Albumin Lvl) 3.2 3.5-5.0 [place] 852652-07-25 08:03:00 Test Item Value Reference Range Interpretation Comments Globulin (test code = Globulin) 3.5 2.7-4.2 [place] 852652-07-25 08:03:00 Test Item Value Reference Range Interpretation Comments A/G Ratio (test code = A/G Ratio) 0.9 1 0.7-1.6 [facility] [id number] 08:03:00 Test Item Value Reference Range Interpretation Comments ALT (test code = ALT) 19 See_Comment [Auto mated message] The system which ge nerated this result transmit lavon reference range : <=65. The reference range was not used to interpr et this result as dionne l/abnormal. [facility] [id number] 08:03:00 Test Item Value Reference Range Interpretation Comments AST (test code = AST) 26 See_Comment [Auto mated message] The system which ge nerated this result transmit lavon reference range : <=37. The reference range was not used to interpr et this result as dionne l/abnormal. [facility] [id number] 08:03:00 Test Item Value Reference Range Interpretation Comments Alk Phos (test code = Alk Phos) 56 39-136 [facility] [id number] 08:03:00 Test Item Value Reference Range Interpretation Comments Bili Total (test code = Bili Total) 1.0 0.2-1.3 [facility] [id number] 08:03:00 Test Item Value Reference Range Interpretation Comments eGFR (test code = eGFR) 67 [facility]2022-07-25 08:03:00 Test Item Value Reference Range Interpretation Comments Magnesium Lvl (test code = Magnesium 1.9 1.8-2.4 Lvl) [facility]2022-07-25 08:03:00 Test Item Value Reference Range Interpretation Comments Procalcitonin Lvl (test no gt See_Comment [Au tomated message] code = Procalcitonin Lvl) Th e system which generated this result transmitted ref erence range: <=0.10. The reference range was not used to interpr et this result as normal/abnormal . [facility]2022-07-25 08:03:00 Test Item Value Reference Range Interpretation Comments LDH (test code = LDH) 354 98-192 [facility] CenterAbpmmesDMQEVMGASQ9135-61-77 08:03:00 Test Item Value Reference Range Interpretation Comments WBC (test code = WBC) 7.5 3.7-10.4 [facility] CenterVdyolwdTJWUYMNGJU1670-28-92 08:03:00 Test Item Value Reference Range Interpretation Comments RBC (test code = RBC) 3.44 4.20-5.40 [facility] CenterBugegfmMDPUOIUSZZ3330-12-75 08:03:00 Test Item Value Reference Range Interpretation Comments Hgb (test code = Hgb) 8.3 12.0-16.0 [place] 778932-07-25 08:03:00 Test Item Value Reference Range Interpretation Comments Hct (test code = Hct) 26.2 36.0-48.0 [place] 778932-07-25 08:03:00 Test Item Value Reference Range Interpretation Comments MCV (test code = MCV) 76.1 80.0-98.0 [place] 778932-07-25 08:03:00 Test Item Value Reference Range Interpretation Comments MCH (test code = MCH) 24.0 pg 27.0-31.0 [facility] CenterLybhbnwUUUUURSTYC7354-17-52 08:03:00 Test Item Value Reference Range Interpretation Comments MCHC (test code = MCHC) 31.6 32.0-36.0 [place] 778932-07-25 08:03:00 Test Item Value Reference Range Interpretation Comments RDW (test code = RDW) 20.9 11.5-14.5 [place] 778932-07-25 08:03:00 Test Item Value Reference Range Interpretation Comments Platelet (test code = Platelet) 289 133-450 [facility] CenterLxyzdvuNITBQRISPC7809-94-25 08:03:00 Test Item Value Reference Range Interpretation Comments MPV (test code = MPV) 7.5 7.4-10.4 [facility] CenterHqdahnbPRNOOVOORJ1681-59-77 08:03:00 Test Item Value Reference Range Interpretation Comments Segs (test code = Segs) 94.0 45.0-75.0 [facility] CenterZqcgwzxIZAZMVKKIE9303-18-13 08:03:00 Test Item Value Reference Range Interpretation Comments Lymphocytes (test code = Lymphocytes) 4.3 20.0-40.0 [facility] CenterLfjdyyvYGKBBTWANU2736-83-63 08:03:00 Test Item Value Reference Range Interpretation Comments Monocytes (test code = Monocytes) 1.6 2.0-12.0 [facility] CenterOealaxqTQQFZNOSZA9529-91-70 08:03:00 Test Item Value Reference Range Interpretation Comments Basophils (test code = 0.1 See_Comment [Aut omated message] The Basophils) system which ge nerated this result tra nsmitted reference range : <=1.0. The reference r hugo was not used to int erpret this result as normal/abnormal . [facility] CenterYrazzntZQNPPRTMTF3186-56-78 08:03:00 Test Item Value Reference Range Interpretation Comments Neutrophils # (test code = Neutrophils 7.0 1.5-8.1 #) [facility] CenterTsemysjRKKMUPTQVL7732-53-94 08:03:00 Test Item Value Reference Range Interpretation Comments Lymphocytes # (test code = Lymphocytes 0.3 1.0-5.5 #) [facility] CenterLfscqmwZXOWLLMYCO2442-65-04 08:03:00 Test Item Value Reference Range Interpretation Comments Monocytes # (test code 0.1 See_Comment [Aut omated message] The = Monocytes #) system which generated this result tra nsmitted reference range : <=0.8. The reference r hugo was not used to int erpret this result as normal/abnormal . [facility] CenterPjnrkmrOMTRNOVVJA0393-29-71 08:03:00 Test Item Value Reference Range Interpretation Comments Microcyte (test code = 1+ *ABN*(06/13/22 Microcyte) 3:03 AM) [facility]2022-07-25 08:03:00 Test Item Value Reference Range Interpretation Comments HS Troponin I 1 Hr (test code = HS 50 Troponin I 1 Hr) [facility]MelodigramCARDIAC [id number] 08:03:00 Test Item Value Reference Range Interpretation Comments HS Troponin I 0 to 1 See Note 5(06/13/22 Hour Delta (test code = 3:03 AM) HS Troponin I 0 to 1 Hour Delta) [facility] [employer] [id number] 08:03:00 Test Item Value Reference Range Interpretation Comments Glucose Lvl (test code = Glucose Lvl) 142 70-99 [facility] [id number] 08:03:00 Test Item Value Reference Range Interpretation Comments BUN (test code = BUN) 21 7-22 [facility] [id number] 08:03:00 Test Item Value Reference Range Interpretation Comments Creatinine Lvl (test code = Creatinine 0.84 0.50-1.40 Lvl) [facility] [employer] [id number] 08:03:00 Test Item Value Reference Range Interpretation Comments Sodium Lvl (test code = Sodium Lvl) 133 135-145 [facility] [employer] [id number] 08:03:00 Test Item Value Reference Range Interpretation Comments Potassium Lvl (test code = Potassium 4.4 3.5-5.1 Lvl) [facility] [employer] [id number] 08:03:00 Test Item Value Reference Range Interpretation Comments Chloride Lvl (test code = Chloride Lvl) 98 95-109 [facility] [employer] [id number] 08:03:00 Test Item Value Reference Range Interpretation Comments CO2 (test code = CO2) 25 24-32 [facility] [employer] [id number] 08:03:00 Test Item Value Reference Range Interpretation Comments AGAP (test code = AGAP) 14.4 10.0-20.0 [facility] [facility] [employer]2022-07-25 08:03:00 Test Item Value Reference Range Interpretation Comments Calcium Lvl (test code = Calcium Lvl) 9.1 8.5-10.5 [facility] [employer] [id number] 08:03:00 Test Item Value Reference Range Interpretation Comments B/C Ratio (test code = B/C Ratio) 25 1 6-25 [facility] [employer] [id number] 08:03:00 Test Item Value Reference Range Interpretation Comments Total Protein (test code = Total 6.7 6.4-8.4 Protein) [place] 852652-07-25 08:03:00 Test Item Value Reference Range Interpretation Comments Albumin Lvl (test code = Albumin Lvl) 3.2 3.5-5.0 [place] 852652-07-25 08:03:00 Test Item Value Reference Range Interpretation Comments Globulin (test code = Globulin) 3.5 2.7-4.2 [place] 852652-07-25 08:03:00 Test Item Value Reference Range Interpretation Comments A/G Ratio (test code = A/G Ratio) 0.9 1 0.7-1.6 [place] 852652-07-25 08:03:00 Test Item Value Reference Range Interpretation Comments ALT (test code = ALT) 19 See_Comment [Auto mated message] The system which ge nerated this result transmit lavon reference range : <=65. The reference range was not used to interpr et this result as dionne l/abnormal. [facility] [id number] 08:03:00 Test Item Value Reference Range Interpretation Comments AST (test code = AST) 26 See_Comment [Auto mated message] The system which ge nerated this result transmit lavon reference range : <=37. The reference range was not used to interpr et this result as dionne l/abnormal. [place] 852652-07-25 08:03:00 Test Item Value Reference Range Interpretation Comments Alk Phos (test code = Alk Phos) 56 39-136 [facility] [id number] 08:03:00 Test Item Value Reference Range Interpretation Comments Bili Total (test code = Bili Total) 1.0 0.2-1.3 [facility] [id number] 08:03:00 Test Item Value Reference Range Interpretation Comments eGFR (test code = eGFR) 67 [place] 852652-07-25 08:03:00 Test Item Value Reference Range Interpretation Comments Magnesium Lvl (test code = Magnesium 1.9 1.8-2.4 Lvl) [place] 852652-07-25 08:03:00 Test Item Value Reference Range Interpretation Comments Procalcitonin Lvl (test no gt See_Comment [Au tomated message] code = Procalcitonin Lvl) Th e system which generated this result transmitted ref erence range: <=0.10. The reference range was not used to interpr et this result as normal/abnormal . [facility]2022-07-25 08:03:00 Test Item Value Reference Range Interpretation Comments LDH (test code = LDH) 354 98-192 [facility]LtqhcfdKYCJZLUPWK6379-90-43 08:03:00 Test Item Value Reference Range Interpretation Comments WBC (test code = WBC) 7.5 3.7-10.4 [facility] CenterClhvvwwQXLDCBGBQU5649-04-74 08:03:00 Test Item Value Reference Range Interpretation Comments RBC (test code = RBC) 3.44 4.20-5.40 [facility] CenterZefiytjMIKLYTHMJD2516-74-72 08:03:00 Test Item Value Reference Range Interpretation Comments Hgb (test code = Hgb) 8.3 12.0-16.0 [facility] CenterHbskcjqIYWFKRYVOR7262-03-67 08:03:00 Test Item Value Reference Range Interpretation Comments Hct (test code = Hct) 26.2 36.0-48.0 [facility] CenterIwibkwlNGOEVKWENZ9152-05-16 08:03:00 Test Item Value Reference Range Interpretation Comments MCV (test code = MCV) 76.1 80.0-98.0 [facility] CenterShdwoycRAFFLZMRED5750-80-70 08:03:00 Test Item Value Reference Range Interpretation Comments MCH (test code = MCH) 24.0 pg 27.0-31.0 [facility] CenterLjgpeahZIHMHZCHZB7067-35-47 08:03:00 Test Item Value Reference Range Interpretation Comments MCHC (test code = MCHC) 31.6 32.0-36.0 [facility] CenterYublaiaFMRZXFWETT9607-94-69 08:03:00 Test Item Value Reference Range Interpretation Comments RDW (test code = RDW) 20.9 11.5-14.5 [facility] CenterXnaolfdPCMROAQUMQ7062-72-53 08:03:00 Test Item Value Reference Range Interpretation Comments Platelet (test code = Platelet) 289 133-450 [facility] CenterHadxiuuNLYWJOGDAI1782-25-36 08:03:00 Test Item Value Reference Range Interpretation Comments MPV (test code = MPV) 7.5 7.4-10.4 [facility] CenterGbdcxbjSUJYOGWDYS4270-60-36 08:03:00 Test Item Value Reference Range Interpretation Comments Segs (test code = Segs) 94.0 45.0-75.0 [facility] CenterHhexdhtCSMXDTBRPR7883-53-26 08:03:00 Test Item Value Reference Range Interpretation Comments Lymphocytes (test code = Lymphocytes) 4.3 20.0-40.0 [facility] CenterCmoxoplTGAMPFHNLE5772-03-74 08:03:00 Test Item Value Reference Range Interpretation Comments Monocytes (test code = Monocytes) 1.6 2.0-12.0 [facility] CenterJjglrkkXKZLMWUWTZ7503-13-45 08:03:00 Test Item Value Reference Range Interpretation Comments Basophils (test code = 0.1 See_Comment [Aut omated message] The Basophils) system which ge nerated this result tra nsmitted reference range : <=1.0. The reference r hugo was not used to int erpret this result as normal/abnormal . [facility] CenterDqkbqejVTAWAXYRBL5977-60-40 08:03:00 Test Item Value Reference Range Interpretation Comments Neutrophils # (test code = Neutrophils 7.0 1.5-8.1 #) [facility] CenterVubyeupTJMACJSFIV1263-38-55 08:03:00 Test Item Value Reference Range Interpretation Comments Lymphocytes # (test code = Lymphocytes 0.3 1.0-5.5 #) [facility] CenterXbduzjsECFMLQMKXZ0536-75-01 08:03:00 Test Item Value Reference Range Interpretation Comments Monocytes # (test code 0.1 See_Comment [Aut omated message] The = Monocytes #) system which generated this result tra nsmitted reference range : <=0.8. The reference r hugo was not used to int erpret this result as normal/abnormal . [facility] CenterCruszmnEMERYBJYSE5131-51-76 08:03:00 Test Item Value Reference Range Interpretation Comments Microcyte (test code = 1+ *ABN*(06/13/22 Microcyte) 3:03 AM) [facility] [id number] 08:03:00 Test Item Value Reference Range Interpretation Comments HS Troponin I 1 Hr (test code = HS 50 Troponin I 1 Hr) [facility] [id number] 08:03:00 Test Item Value Reference Range Interpretation Comments HS Troponin I 0 to 1 See Note 5(06/13/22 Hour Delta (test code = 3:03 AM) HS Troponin I 0 to 1 Hour Delta) [facility]2022-07-25 08:03:00 Test Item Value Reference Range Interpretation Comments Glucose Lvl (test code = Glucose Lvl) 142 70-99 [place] 852652-07-25 08:03:00 Test Item Value Reference Range Interpretation Comments BUN (test code = BUN) 21 7-22 [place] 852652-07-25 08:03:00 Test Item Value Reference Range Interpretation Comments Creatinine Lvl (test code = Creatinine 0.84 0.50-1.40 Lvl) [place] 852652-07-25 08:03:00 Test Item Value Reference Range Interpretation Comments Sodium Lvl (test code = Sodium Lvl) 133 135-145 [place] 852652-07-25 08:03:00 Test Item Value Reference Range Interpretation Comments Potassium Lvl (test code = Potassium 4.4 3.5-5.1 Lvl) [place] 852652-07-25 08:03:00 Test Item Value Reference Range Interpretation Comments Chloride Lvl (test code = Chloride Lvl) 98 95-109 [place] 852652-07-25 08:03:00 Test Item Value Reference Range Interpretation Comments CO2 (test code = CO2) 25 24-32 [place] 852652-07-25 08:03:00 Test Item Value Reference Range Interpretation Comments AGAP (test code = AGAP) 14.4 10.0-20.0 [place] 852652-07-25 08:03:00 Test Item Value Reference Range Interpretation Comments Calcium Lvl (test code = Calcium Lvl) 9.1 8.5-10.5 [place] 852652-07-25 08:03:00 Test Item Value Reference Range Interpretation Comments B/C Ratio (test code = B/C Ratio) 25 1 6-25 [place] 852652-07-25 08:03:00 Test Item Value Reference Range Interpretation Comments Total Protein (test code = Total 6.7 6.4-8.4 Protein) [place] 852652-07-25 08:03:00 Test Item Value Reference Range Interpretation Comments Albumin Lvl (test code = Albumin Lvl) 3.2 3.5-5.0 [place] 852652-07-25 08:03:00 Test Item Value Reference Range Interpretation Comments Globulin (test code = Globulin) 3.5 2.7-4.2 [facility] [id number] 08:03:00 Test Item Value Reference Range Interpretation Comments A/G Ratio (test code = A/G Ratio) 0.9 1 0.7-1.6 [facility] [id number] 08:03:00 Test Item Value Reference Range Interpretation Comments ALT (test code = ALT) 19 See_Comment [Auto mated message] The system which ge nerated this result transmit lavon reference range : <=65. The reference range was not used to interpr et this result as dionne l/abnormal. [facility] [employer] [id number] 08:03:00 Test Item Value Reference Range Interpretation Comments AST (test code = AST) 26 See_Comment [Auto mated message] The system which ge nerated this result transmit lavon reference range : <=37. The reference range was not used to interpr et this result as dionne l/abnormal. [facility] [employer] [id number] 08:03:00 Test Item Value Reference Range Interpretation Comments Alk Phos (test code = Alk Phos) 56 39-136 [facility] [employer] [id number] 08:03:00 Test Item Value Reference Range Interpretation Comments Bili Total (test code = Bili Total) 1.0 0.2-1.3 [facility] [employer] [id number] 08:03:00 Test Item Value Reference Range Interpretation Comments eGFR (test code = eGFR) 67 [facility] [employer] [id number] 08:03:00 Test Item Value Reference Range Interpretation Comments Magnesium Lvl (test code = Magnesium 1.9 1.8-2.4 Lvl) [facility] [id number] 08:03:00 Test Item Value Reference Range Interpretation Comments Procalcitonin Lvl (test no gt See_Comment [Au tomated message] code = Procalcitonin Lvl) Th e system which generated this result transmitted ref erence range: <=0.10. The reference range was not used to interpr et this result as normal/abnormal . [facility] [employer] [id number] 08:03:00 Test Item Value Reference Range Interpretation Comments LDH (test code = LDH) 354 98-192 [facility] CenterDnjtwdwYWXDCXFENQ4265-27-41 08:03:00 Test Item Value Reference Range Interpretation Comments WBC (test code = WBC) 7.5 3.7-10.4 [facility] CenterEgvjcoeMCXKCCUENK9341-19-51 08:03:00 Test Item Value Reference Range Interpretation Comments RBC (test code = RBC) 3.44 4.20-5.40 [facility] CenterMtwzskmVUYUAYANWD1733-05-99 08:03:00 Test Item Value Reference Range Interpretation Comments Hgb (test code = Hgb) 8.3 12.0-16.0 [facility] CenterCebtqriAJGFDXVWIQ4316-15-39 08:03:00 Test Item Value Reference Range Interpretation Comments Hct (test code = Hct) 26.2 36.0-48.0 [facility] CenterJruaotvTEOKIWMVKX0075-25-40 08:03:00 Test Item Value Reference Range Interpretation Comments MCV (test code = MCV) 76.1 80.0-98.0 [facility] CenterQhvjadkGWPXMQQDFM3547-74-25 08:03:00 Test Item Value Reference Range Interpretation Comments MCH (test code = MCH) 24.0 pg 27.0-31.0 [facility] CenterKzuyepaKIEJYABIKP3955-34-22 08:03:00 Test Item Value Reference Range Interpretation Comments MCHC (test code = MCHC) 31.6 32.0-36.0 [facility] CenterKnfmzdlYYMXTKGJZI0590-72-97 08:03:00 Test Item Value Reference Range Interpretation Comments RDW (test code = RDW) 20.9 11.5-14.5 [facility] CenterDysfbmoHWEAHCHAST3878-18-42 08:03:00 Test Item Value Reference Range Interpretation Comments Platelet (test code = Platelet) 289 133-450 [facility] CenterUnwiatlTPIIJXYJNO2639-53-71 08:03:00 Test Item Value Reference Range Interpretation Comments MPV (test code = MPV) 7.5 7.4-10.4 [facility] CenterDyzciblEZJVSAOXCO4911-45-31 08:03:00 Test Item Value Reference Range Interpretation Comments Segs (test code = Segs) 94.0 45.0-75.0 [facility] CenterWkokcqvDFSCHEADYF9327-90-85 08:03:00 Test Item Value Reference Range Interpretation Comments Lymphocytes (test code = Lymphocytes) 4.3 20.0-40.0 [facility] CenterAzohysqMVRZGUEWRO9855-37-19 08:03:00 Test Item Value Reference Range Interpretation Comments Monocytes (test code = Monocytes) 1.6 2.0-12.0 [facility]GbdgpopRYGXXVZIPK5526-81-20 08:03:00 Test Item Value Reference Range Interpretation Comments Basophils (test code = 0.1 See_Comment [Aut omated message] The Basophils) system which ge nerated this result tra nsmitted reference range : <=1.0. The reference r hugo was not used to int erpret this result as normal/abnormal . [facility]villeKgabmidVTUDDFYNAB3669-96-57 08:03:00 Test Item Value Reference Range Interpretation Comments Neutrophils # (test code = Neutrophils 7.0 1.5-8.1 #) [facility] CenterEgaskmhIJYLENLPXE9451-97-28 08:03:00 Test Item Value Reference Range Interpretation Comments Lymphocytes # (test code = Lymphocytes 0.3 1.0-5.5 #) [facility] HospitalByebfzmUTSRNMROBF2560-86-00 08:03:00 Test Item Value Reference Range Interpretation Comments Monocytes # (test code 0.1 See_Comment [Aut omated message] The = Monocytes #) system which generated this result tra nsmitted reference range : <=0.8. The reference r hugo was not used to int erpret this result as normal/abnormal . [facility] GreenvilleMoajrbsMYBJPQDAPO0769-83-80 08:03:00 Test Item Value Reference Range Interpretation Comments Microcyte (test code = 1+ *ABN*(06/13/22 Microcyte) 3:03 AM) [facility] [employer]20[facility] 08:03:00 Test Item Value Reference Range Interpretation Comments HS Troponin I 1 Hr (test code = HS 50 Troponin I 1 Hr) [facility] [employer] [facility]2022-[facility]-25 08:03:00 Test Item Value Reference Range Interpretation Comments HS Troponin I 0 to 1 See Note 5(06/13/22 Hour Delta (test code = 3:03 AM) HS Troponin I 0 to 1 Hour Delta) [facility] TexasFre[facility] Scientific Holdings, [id number] 08:03:00 Test Item Value Reference Range Interpretation Comments Glucose Lvl (test code = Glucose Lvl) 142 70-99 [facility] [employer]2022-07-25 08:03:00 Test Item Value Reference Range Interpretation Comments BUN (test code = BUN) 21 - [facility]2022-07-25 08:03:00 Test Item Value Reference Range Interpretation Comments Creatinine Lvl (test code = Creatinine 0.84 0.50-1.40 Lvl) [facility]2022-07-25 08:03:00 Test Item Value Reference Range Interpretation Comments Sodium Lvl (test code = Sodium Lvl) 133 135-145 [facility] TexasMelodigramEM[place] [id number] 08:03:00 Test Item Value Reference Range Interpretation Comments Potassium Lvl (test code = Potassium 4.4 3.5-5.1 Lvl) [facility] TexasMelodigramNOV[facility] [id number] 08:03:00 Test Item Value Reference Range Interpretation Comments Chloride Lvl (test code = Chloride Lvl) 98 95-109 [facility] TexasMelodigramNOV[facility] MEDICAL CENTERATBAR4471-51-79 08:03:00 Test Item Value Reference Range Interpretation Comments CO2 (test code = CO2) 24-32 [facility] TexasMelodigramEMILY [place] [id number] 08:03:00 Test Item Value Reference Range Interpretation Comments AGAP (test code = AGAP) 14.4 10.0-20.0 [facility] TexasMelodigramEMILY [place] [id number] 08:03:00 Test Item Value Reference Range Interpretation Comments Calcium Lvl (test code = Calcium Lvl) 9.1 8.5-10.5 [facility] TexasMelodigramEMILY [place] [id number] 08:03:00 Test Item Value Reference Range Interpretation Comments B/C Ratio (test code = B/C Ratio) 25 1 6-25 [facility] TexasMelodigramEMILY [place] [id number] 08:03:00 Test Item Value Reference Range Interpretation Comments Total Protein (test code = Total 6.7 6.4-8.4 Protein) [facility]2022-07-25 08:03:00 Test Item Value Reference Range Interpretation Comments Albumin Lvl (test code = Albumin Lvl) 3.2 3.5-5.0 [facility] TexasMelodigramEM[place] [id number] 08:03:00 Test Item Value Reference Range Interpretation Comments Globulin (test code = Globulin) 3.5 2.7-4.2 [facility] TexasMelodigramEMILY [place] [id number] 08:03:00 Test Item Value Reference Range Interpretation Comments A/G Ratio (test code = A/G Ratio) 0.9 1 0.7-1.6 [facility] [id number] 08:03:00 Test Item Value Reference Range Interpretation Comments ALT (test code = ALT) 19 See_Comment [Auto mated message] The system which ge nerated this result transmit lavon reference range : <=65. The reference range was not used to interpr et this result as dionne l/abnormal. [facility] [employer] [id number] 08:03:00 Test Item Value Reference Range Interpretation Comments AST (test code = AST) 26 See_Comment [Auto mated message] The system which ge nerated this result transmit lavon reference range : <=37. The reference range was not used to interpr et this result as dionne l/abnormal. [facility] [employer] [id number] 08:03:00 Test Item Value Reference Range Interpretation Comments Alk Phos (test code = Alk Phos) 56 39-136 [facility] [employer] [id number] 08:03:00 Test Item Value Reference Range Interpretation Comments Bili Total (test code = Bili Total) 1.0 0.2-1.3 [facility] [employer]2022-07-25 08:03:00 Test Item Value Reference Range Interpretation Comments eGFR (test code = eGFR) 67 [facility] [employer]2022-07-25 08:03:00 Test Item Value Reference Range Interpretation Comments Magnesium Lvl (test code = Magnesium 1.9 1.8-2.4 Lvl) [facility] [id number] 08:03:00 Test Item Value Reference Range Interpretation Comments Procalcitonin Lvl (test no gt See_Comment [Au tomated message] code = Procalcitonin Lvl) Th e system which generated this result transmitted ref erence range: <=0.10. The reference range was not used to interpr et this result as normal/abnormal . [facility] [employer] [id number] 08:03:00 Test Item Value Reference Range Interpretation Comments LDH (test code = LDH) 354 98-192 [facility] TexasJfwuqscBMUWGQGMZH5863-92-72 08:03:00 Test Item Value Reference Range Interpretation Comments WBC (test code = WBC) 7.5 3.7-10.4 [facility] TexasQlysibpNTCOTQMSUV2774-90-88 08:03:00 Test Item Value Reference Range Interpretation Comments RBC (test code = RBC) 3.44 4.20-5.40 [facility] CenterAbadobjLZKJWRSSJX5748-01-93 08:03:00 Test Item Value Reference Range Interpretation Comments Hgb (test code = Hgb) 8.3 12.0-16.0 [facility] CenterIohmgffVFBWKOKXPV2602-03-38 08:03:00 Test Item Value Reference Range Interpretation Comments Hct (test code = Hct) 26.2 36.0-48.0 [facility] CenterBfffsakBOTCDNQDXW9371-56-38 08:03:00 Test Item Value Reference Range Interpretation Comments MCV (test code = MCV) 76.1 80.0-98.0 [facility] CenterOnpgsboEGWKFPHWXN1400-36-28 08:03:00 Test Item Value Reference Range Interpretation Comments MCH (test code = MCH) 24.0 pg 27.0-31.0 [facility] CenterJsvtnocNQVOYRFABL4840-98-65 08:03:00 Test Item Value Reference Range Interpretation Comments MCHC (test code = MCHC) 31.6 32.0-36.0 [facility] CenterQtpzomqKBMNHZQEIJ9427-54-18 08:03:00 Test Item Value Reference Range Interpretation Comments RDW (test code = RDW) 20.9 11.5-14.5 [facility] CenterWdrnjxmHTJYBXTSIC0945-43-50 08:03:00 Test Item Value Reference Range Interpretation Comments Platelet (test code = Platelet) 289 133-450 [facility] CenterVjlbxooUYBCQVKXBF8877-43-39 08:03:00 Test Item Value Reference Range Interpretation Comments MPV (test code = MPV) 7.5 7.4-10.4 [facility] CenterAochpskOPCZHUMJYY3014-10-82 08:03:00 Test Item Value Reference Range Interpretation Comments Segs (test code = Segs) 94.0 45.0-75.0 [facility] CenterGywycbsFZMVZUNMQT5414-85-43 08:03:00 Test Item Value Reference Range Interpretation Comments Lymphocytes (test code = Lymphocytes) 4.3 20.0-40.0 [facility] CenterHusrqliRXWELMMQKI2961-97-51 08:03:00 Test Item Value Reference Range Interpretation Comments Monocytes (test code = Monocytes) 1.6 2.0-12.0 [facility] CenterRvdiujpWQWUWIYDOZ9410-72-06 08:03:00 Test Item Value Reference Range Interpretation Comments Basophils (test code = 0.1 See_Comment [Aut omated message] The Basophils) system which ge nerated this result tra nsmitted reference range : <=1.0. The reference r hugo was not used to int erpret this result as normal/abnormal . [facility] TexasOpwnunsAQWNELHREE7028-90-45 08:03:00 Test Item Value Reference Range Interpretation Comments Neutrophils # (test code = Neutrophils 7.0 1.5-8.1 #) [facility]villePdsefivKSHUFGZKAR8081-70-05 08:03:00 Test Item Value Reference Range Interpretation Comments Lymphocytes # (test code = Lymphocytes 0.3 1.0-5.5 #) [facility] GreenvilleSdreqldEBCWFIHOOH7809-98-96 08:03:00 Test Item Value Reference Range Interpretation Comments Monocytes # (test code 0.1 See_Comment [Aut omated message] The = Monocytes #) system which generated this result tra nsmitted reference range : <=0.8. The reference r hugo was not used to int erpret this result as normal/abnormal . [facility] GreenvilleVysfrpxMQOFIGKCWH8867-60-73 08:03:00 Test Item Value Reference Range Interpretation Comments Microcyte (test code = 1+ *ABN*(06/13/22 Microcyte) 3:03 AM) [facility] [employer]2022-07-25 08:03:00 Test Item Value Reference Range Interpretation Comments HS Troponin I 1 Hr (test code = HS 50 Troponin I 1 Hr) [facility] [employer] [facility]2022-07-25 08:03:00 Test Item Value Reference Range Interpretation Comments HS Troponin I 0 to 1 See Note 5(06/13/22 Hour Delta (test code = 3:03 AM) HS Troponin I 0 to 1 Hour Delta) [facility] [employer]2022-07-25 08:03:00 Test Item Value Reference Range Interpretation Comments Glucose Lvl (test code = Glucose Lvl) 142 70-99 [facility]Fre[facility] Holdings, [id number] 08:03:00 Test Item Value Reference Range Interpretation Comments BUN (test code = BUN) 21 06-10 [facility]Fre[facility], [id number] 08:03:00 Test Item Value Reference Range Interpretation Comments Creatinine Lvl (test code = Creatinine 0.84 0.50-1.40 Lvl) [facility]Fre[facility] Holdings, LLCKHUKL2179-93-03 08:03:00 Test Item Value Reference Range Interpretation Comments Sodium Lvl (test code = Sodium Lvl) 133 135-145 [place] 852652-07-25 08:03:00 Test Item Value Reference Range Interpretation Comments Potassium Lvl (test code = Potassium 4.4 3.5-5.1 Lvl) [place] 852652-07-25 08:03:00 Test Item Value Reference Range Interpretation Comments Chloride Lvl (test code = Chloride Lvl) 98 95-109 [place] 852652-07-25 08:03:00 Test Item Value Reference Range Interpretation Comments CO2 (test code = CO2) 25 24-32 [place] 852652-07-25 08:03:00 Test Item Value Reference Range Interpretation Comments AGAP (test code = AGAP) 14.4 10.0-20.0 [place] 852652-07-25 08:03:00 Test Item Value Reference Range Interpretation Comments Calcium Lvl (test code = Calcium Lvl) 9.1 8.5-10.5 [place] 852652-07-25 08:03:00 Test Item Value Reference Range Interpretation Comments B/C Ratio (test code = B/C Ratio) 25 1 6-25 [place] 852652-07-25 08:03:00 Test Item Value Reference Range Interpretation Comments Total Protein (test code = Total 6.7 6.4-8.4 Protein) [place] 852652-07-25 08:03:00 Test Item Value Reference Range Interpretation Comments Albumin Lvl (test code = Albumin Lvl) 3.2 3.5-5.0 [place] 852652-07-25 08:03:00 Test Item Value Reference Range Interpretation Comments Globulin (test code = Globulin) 3.5 2.7-4.2 [place] 852652-07-25 08:03:00 Test Item Value Reference Range Interpretation Comments A/G Ratio (test code = A/G Ratio) 0.9 1 0.7-1.6 [place] 852652-07-25 08:03:00 Test Item Value Reference Range Interpretation Comments ALT (test code = ALT) 19 See_Comment [Auto mated message] The system which ge nerated this result transmit lavon reference range : <=65. The reference range was not used to interpr et this result as dionne l/abnormal. [place] 852652-07-25 08:03:00 Test Item Value Reference Range Interpretation Comments AST (test code = AST) 26 See_Comment [Auto mated message] The system which ge nerated this result transmit lavon reference range : <=37. The reference range was not used to interpr et this result as dionne l/abnormal. [facility] [id number] 08:03:00 Test Item Value Reference Range Interpretation Comments Alk Phos (test code = Alk Phos) 56 39-136 [facility] [id number] 08:03:00 Test Item Value Reference Range Interpretation Comments Bili Total (test code = Bili Total) 1.0 0.2-1.3 [facility] [id number] 08:03:00 Test Item Value Reference Range Interpretation Comments eGFR (test code = eGFR) 67 [facility] [id number] 08:03:00 Test Item Value Reference Range Interpretation Comments Magnesium Lvl (test code = Magnesium 1.9 1.8-2.4 Lvl) [facility] [id number] 08:03:00 Test Item Value Reference Range Interpretation Comments Procalcitonin Lvl (test no gt See_Comment [Au tomated message] code = Procalcitonin Lvl) Th e system which generated this result transmitted ref erence range: <=0.10. The reference range was not used to interpr et this result as normal/abnormal . [facility] [id number] 08:03:00 Test Item Value Reference Range Interpretation Comments LDH (test code = LDH) 354 98-192 [place] 778932-07-25 08:03:00 Test Item Value Reference Range Interpretation Comments WBC (test code = WBC) 7.5 3.7-10.4 [place] [address]-07-25 08:03:00 Test Item Value Reference Range Interpretation Comments RBC (test code = RBC) 3.44 4.20-5.40 [place] [address]-07-25 08:03:00 Test Item Value Reference Range Interpretation Comments Hgb (test code = Hgb) 8.3 12.0-16.0 [facility]villeStgvkoyDDWEJUBSXO3702-43-66 08:03:00 Test Item Value Reference Range Interpretation Comments Hct (test code = Hct) 26.2 36.0-48.0 [facility]RoiybvtALAEQCBIKJ2859-27-95 08:03:00 Test Item Value Reference Range Interpretation Comments MCV (test code = MCV) 76.1 80.0-98.0 [facility] CenterZdqzefqCWKFQJBBKI0965-16-31 08:03:00 Test Item Value Reference Range Interpretation Comments MCH (test code = MCH) 24.0 pg 27.0-31.0 [facility] CenterOczpnoxSPKCNIXAHP0088-59-31 08:03:00 Test Item Value Reference Range Interpretation Comments MCHC (test code = MCHC) 31.6 32.0-36.0 [facility] CenterZvnonsbAMBCJWSJPF5542-85-35 08:03:00 Test Item Value Reference Range Interpretation Comments RDW (test code = RDW) 20.9 11.5-14.5 [facility] CenterNllzkznIDXKCCXQMU1551-06-45 08:03:00 Test Item Value Reference Range Interpretation Comments Platelet (test code = Platelet) 289 133-450 [facility] CenterTrfqxhaOQJIGODMPO1506-38-10 08:03:00 Test Item Value Reference Range Interpretation Comments MPV (test code = MPV) 7.5 7.4-10.4 [facility] CenterJxgpxwuACMMJKVKKU1358-85-14 08:03:00 Test Item Value Reference Range Interpretation Comments Segs (test code = Segs) 94.0 45.0-75.0 [facility] CenterMsdkwluOIIJCILRAR6774-98-65 08:03:00 Test Item Value Reference Range Interpretation Comments Lymphocytes (test code = Lymphocytes) 4.3 20.0-40.0 [facility] CenterAaoxmmzGDNZIXRNES3682-64-60 08:03:00 Test Item Value Reference Range Interpretation Comments Monocytes (test code = Monocytes) 1.6 2.0-12.0 [place] 778932-07-25 08:03:00 Test Item Value Reference Range Interpretation Comments Basophils (test code = 0.1 See_Comment [Aut omated message] The Basophils) system which ge nerated this result tra nsmitted reference range : <=1.0. The reference r hugo was not used to int erpret this result as normal/abnormal . [facility] CenterTidsauzPTZBPGIKJU7200-08-11 08:03:00 Test Item Value Reference Range Interpretation Comments Neutrophils # (test code = Neutrophils 7.0 1.5-8.1 #) [place] 778932-07-25 08:03:00 Test Item Value Reference Range Interpretation Comments Lymphocytes # (test code = Lymphocytes 0.3 1.0-5.5 #) [facility] [id number] 08:03:00 Test Item Value Reference Range Interpretation Comments Monocytes # (test code 0.1 See_Comment [Aut omated message] The = Monocytes #) system which generated this result tra nsmitted reference range : <=0.8. The reference r hugo was not used to int erpret this result as normal/abnormal . [facility]rt[facility]wxUCIAQQ[facility]EB2003-38-48 08:03:00 Test Item Value Reference Range Interpretation Comments Microcyte (test code = 1+ *ABN*(06/13/22 Microcyte) 3:03 AM) [facility]villePre[facility] [id number] 08:03:00 Test Item Value Reference Range Interpretation Comments HS Troponin I 1 Hr (test code = HS 50 Troponin I 1 Hr) [facility]Prop[facility] [id number] 08:03:00 Test Item Value Reference Range Interpretation Comments HS Troponin I 0 to 1 See Note 5(06/13/22 Hour Delta (test code = 3:03 AM) HS Troponin I 0 to 1 Hour Delta) [facility] [id number] 08:03:00 Test Item Value Reference Range Interpretation Comments Glucose Lvl (test code = Glucose Lvl) 142 70-99 [facility] [id number] 08:03:00 Test Item Value Reference Range Interpretation Comments BUN (test code = BUN) 21 - [facility] [id number] 08:03:00 Test Item Value Reference Range Interpretation Comments Creatinine Lvl (test code = Creatinine 0.84 0.50-1.40 Lvl) [facility] TexasFre[facility] Scientific Holdings, [id number] 08:03:00 Test Item Value Reference Range Interpretation Comments Sodium Lvl (test code = Sodium Lvl) 133 135-145 [facility] [id number] 08:03:00 Test Item Value Reference Range Interpretation Comments Potassium Lvl (test code = Potassium 4.4 3.5-5.1 Lvl) [facility] [id number] 08:03:00 Test Item Value Reference Range Interpretation Comments Chloride Lvl (test code = Chloride Lvl) 98 95-109 [place] 852652-07-25 08:03:00 Test Item Value Reference Range Interpretation Comments CO2 (test code = CO2) 25 24-32 [place] 852652-07-25 08:03:00 Test Item Value Reference Range Interpretation Comments AGAP (test code = AGAP) 14.4 10.0-20.0 [place] [address]-07-25 08:03:00 Test Item Value Reference Range Interpretation Comments Calcium Lvl (test code = Calcium Lvl) 9.1 8.5-10.5 [place] 852652-07-25 08:03:00 Test Item Value Reference Range Interpretation Comments B/C Ratio (test code = B/C Ratio) 25 1 6-25 [place] 852652-07-25 08:03:00 Test Item Value Reference Range Interpretation Comments Total Protein (test code = Total 6.7 6.4-8.4 Protein) [place] 852652-07-25 08:03:00 Test Item Value Reference Range Interpretation Comments Albumin Lvl (test code = Albumin Lvl) 3.2 3.5-5.0 [place] 852652-07-25 08:03:00 Test Item Value Reference Range Interpretation Comments Globulin (test code = Globulin) 3.5 2.7-4.2 [facility] [id number] 08:03:00 Test Item Value Reference Range Interpretation Comments A/G Ratio (test code = A/G Ratio) 0.9 1 0.7-1.6 [place] 852652-07-25 08:03:00 Test Item Value Reference Range Interpretation Comments ALT (test code = ALT) 19 See_Comment [Auto mated message] The system which ge nerated this result transmit lavon reference range : <=65. The reference range was not used to interpr et this result as dionne l/abnormal. [facility] [id number] 08:03:00 Test Item Value Reference Range Interpretation Comments AST (test code = AST) 26 See_Comment [Auto mated message] The system which ge nerated this result transmit lavon reference range : <=37. The reference range was not used to interpr et this result as dionne l/abnormal. [facility] [id number] 08:03:00 Test Item Value Reference Range Interpretation Comments Alk Phos (test code = Alk Phos) 56 39-136 [place] 852652-07-25 08:03:00 Test Item Value Reference Range Interpretation Comments Bili Total (test code = Bili Total) 1.0 0.2-1.3 [place] 852652-07-25 08:03:00 Test Item Value Reference Range Interpretation Comments eGFR (test code = eGFR) 67 [place] 852652-07-25 08:03:00 Test Item Value Reference Range Interpretation Comments Magnesium Lvl (test code = Magnesium 1.9 1.8-2.4 Lvl) [place] 852652-07-25 08:03:00 Test Item Value Reference Range Interpretation Comments Procalcitonin Lvl (test no gt See_Comment [Au tomated message] code = Procalcitonin Lvl) e system which generated this result transmitted ref erence range: <=0.10. The reference range was not used to interpr et this result as normal/abnormal . [facility]2022-07-25 08:03:00 Test Item Value Reference Range Interpretation Comments LDH (test code = LDH) 354 98-192 [place] 778932-07-25 08:03:00 Test Item Value Reference Range Interpretation Comments WBC (test code = WBC) 7.5 3.7-10.4 [place] [address]-07-25 08:03:00 Test Item Value Reference Range Interpretation Comments RBC (test code = RBC) 3.44 4.20-5.40 [place] [address]-07-25 08:03:00 Test Item Value Reference Range Interpretation Comments Hgb (test code = Hgb) 8.3 12.0-16.0 [place] [address]-07-25 08:03:00 Test Item Value Reference Range Interpretation Comments Hct (test code = Hct) 26.2 36.0-48.0 [place] [address]-07-25 08:03:00 Test Item Value Reference Range Interpretation Comments MCV (test code = MCV) 76.1 80.0-98.0 [place] [address]-07-25 08:03:00 Test Item Value Reference Range Interpretation Comments MCH (test code = MCH) 24.0 pg 27.0-31.0 [facility] CenterNrldanjOCMZWRGCJB7194-21-59 08:03:00 Test Item Value Reference Range Interpretation Comments MCHC (test code = MCHC) 31.6 32.0-36.0 [place] 778932-07-25 08:03:00 Test Item Value Reference Range Interpretation Comments RDW (test code = RDW) 20.9 11.5-14.5 [place] 778932-07-25 08:03:00 Test Item Value Reference Range Interpretation Comments Platelet (test code = Platelet) 289 133-450 [facility] CenterBmsbenqDEXONBHBCF4310-00-09 08:03:00 Test Item Value Reference Range Interpretation Comments MPV (test code = MPV) 7.5 7.4-10.4 [place] 778932-07-25 08:03:00 Test Item Value Reference Range Interpretation Comments Segs (test code = Segs) 94.0 45.0-75.0 [place] 778932-07-25 08:03:00 Test Item Value Reference Range Interpretation Comments Lymphocytes (test code = Lymphocytes) 4.3 20.0-40.0 [place] 778932-07-25 08:03:00 Test Item Value Reference Range Interpretation Comments Monocytes (test code = Monocytes) 1.6 2.0-12.0 [place] 778932-07-25 08:03:00 Test Item Value Reference Range Interpretation Comments Basophils (test code = 0.1 See_Comment [Aut omated message] The Basophils) system which ge nerated this result tra nsmitted reference range : <=1.0. The reference r hugo was not used to int erpret this result as normal/abnormal . [facility] CenterOatllirZFDHUWCXUJ9450-07-62 08:03:00 Test Item Value Reference Range Interpretation Comments Neutrophils # (test code = Neutrophils 7.0 1.5-8.1 #) [place] 778932-07-25 08:03:00 Test Item Value Reference Range Interpretation Comments Lymphocytes # (test code = Lymphocytes 0.3 1.0-5.5 #) [place] 778932-07-25 08:03:00 Test Item Value Reference Range Interpretation Comments Monocytes # (test code 0.1 See_Comment [Aut omated message] The = Monocytes #) system which generated this result tra nsmitted reference range : <=0.8. The reference r hugo was not used to int erpret this result as normal/abnormal . [facility] GreenvilleWgumkjsFGOQRHPDXK9435-27-76 08:03:00 Test Item Value Reference Range Interpretation Comments Microcyte (test code = 1+ *ABN*(06/13/22 Microcyte) 3:03 AM) [facility]GetIntentAC [id number] 08:03:00 Test Item Value Reference Range Interpretation Comments HS Troponin I 1 Hr (test code = HS 50 Troponin I 1 Hr) [facility]villePropancAC [id number] 08:03:00 Test Item Value Reference Range Interpretation Comments HS Troponin I 0 to 1 See Note 5(06/13/22 Hour Delta (test code = 3:03 AM) HS Troponin I 0 to 1 Hour Delta) [facility] [employer] [id number] 08:03:00 Test Item Value Reference Range Interpretation Comments Glucose Lvl (test code = Glucose Lvl) 142 70-99 [facility] [employer] [id number] 08:03:00 Test Item Value Reference Range Interpretation Comments BUN (test code = BUN) 21 - [facility] [id number] 08:03:00 Test Item Value Reference Range Interpretation Comments Creatinine Lvl (test code = Creatinine 0.84 0.50-1.40 Lvl) [facility] [id number] 08:03:00 Test Item Value Reference Range Interpretation Comments Sodium Lvl (test code = Sodium Lvl) 133 135-145 [facility] [employer] [id number] 08:03:00 Test Item Value Reference Range Interpretation Comments Potassium Lvl (test code = Potassium 4.4 3.5-5.1 Lvl) [facility] [id number] 08:03:00 Test Item Value Reference Range Interpretation Comments Chloride Lvl (test code = Chloride Lvl) 98 95-109 [facility] [employer] [id number] 08:03:00 Test Item Value Reference Range Interpretation Comments CO2 (test code = CO2) 25 24-32 [facility] [id number] 08:03:00 Test Item Value Reference Range Interpretation Comments AGAP (test code = AGAP) 14.4 10.0-20.0 [facility] [employer] [id number] 08:03:00 Test Item Value Reference Range Interpretation Comments Calcium Lvl (test code = Calcium Lvl) 9.1 8.5-10.5 [facility] [id number] 08:03:00 Test Item Value Reference Range Interpretation Comments B/C Ratio (test code = B/C Ratio) 25 1 6-25 [facility] [employer] [id number] 08:03:00 Test Item Value Reference Range Interpretation Comments Total Protein (test code = Total 6.7 6.4-8.4 Protein) [facility] [id number] 08:03:00 Test Item Value Reference Range Interpretation Comments Albumin Lvl (test code = Albumin Lvl) 3.2 3.5-5.0 [facility] [employer] [id number] 08:03:00 Test Item Value Reference Range Interpretation Comments Globulin (test code = Globulin) 3.5 2.7-4.2 [facility] [employer] [id number] 08:03:00 Test Item Value Reference Range Interpretation Comments A/G Ratio (test code = A/G Ratio) 0.9 1 0.7-1.6 [facility] [employer] [id number] 08:03:00 Test Item Value Reference Range Interpretation Comments ALT (test code = ALT) 19 See_Comment [Auto mated message] The system which ge nerated this result transmit lavon reference range : <=65. The reference range was not used to interpr et this result as dionne l/abnormal. [facility] [employer] [id number] 08:03:00 Test Item Value Reference Range Interpretation Comments AST (test code = AST) 26 See_Comment [Auto mated message] The system which ge nerated this result transmit lavon reference range : <=37. The reference range was not used to interpr et this result as dionne l/abnormal. [facility] [employer] [id number] 08:03:00 Test Item Value Reference Range Interpretation Comments Alk Phos (test code = Alk Phos) 56 39-136 [facility] [employer] [id number] 08:03:00 Test Item Value Reference Range Interpretation Comments Bili Total (test code = Bili Total) 1.0 0.2-1.3 [facility] [employer] [id number] 08:03:00 Test Item Value Reference Range Interpretation Comments eGFR (test code = eGFR) 67 [facility]2022-07-25 08:03:00 Test Item Value Reference Range Interpretation Comments Magnesium Lvl (test code = Magnesium 1.9 1.8-2.4 Lvl) [facility]2022-07-25 08:03:00 Test Item Value Reference Range Interpretation Comments Procalcitonin Lvl (test no gt See_Comment [Au tomated message] code = Procalcitonin Lvl) e system which generated this result transmitted ref erence range: <=0.10. The reference range was not used to interpr et this result as normal/abnormal . [facility]2022-07-25 08:03:00 Test Item Value Reference Range Interpretation Comments LDH (test code = LDH) 354 98-192 [facility] CenterSfzlrgiTRTQOXTYPL6653-72-80 08:03:00 Test Item Value Reference Range Interpretation Comments WBC (test code = WBC) 7.5 3.7-10.4 [place] 778932-07-25 08:03:00 Test Item Value Reference Range Interpretation Comments RBC (test code = RBC) 3.44 4.20-5.40 [place] 778932-07-25 08:03:00 Test Item Value Reference Range Interpretation Comments Hgb (test code = Hgb) 8.3 12.0-16.0 [place] 778932-07-25 08:03:00 Test Item Value Reference Range Interpretation Comments Hct (test code = Hct) 26.2 36.0-48.0 [place] 778932-07-25 08:03:00 Test Item Value Reference Range Interpretation Comments MCV (test code = MCV) 76.1 80.0-98.0 [place] 778932-07-25 08:03:00 Test Item Value Reference Range Interpretation Comments MCH (test code = MCH) 24.0 pg 27.0-31.0 [place] 778932-07-25 08:03:00 Test Item Value Reference Range Interpretation Comments MCHC (test code = MCHC) 31.6 32.0-36.0 [place] 778932-07-25 08:03:00 Test Item Value Reference Range Interpretation Comments RDW (test code = RDW) 20.9 11.5-14.5 [place] 778932-07-25 08:03:00 Test Item Value Reference Range Interpretation Comments Platelet (test code = Platelet) 289 133-450 [place] 778932-07-25 08:03:00 Test Item Value Reference Range Interpretation Comments MPV (test code = MPV) 7.5 7.4-10.4 [place] 778932-07-25 08:03:00 Test Item Value Reference Range Interpretation Comments Segs (test code = Segs) 94.0 45.0-75.0 [place] 778932-07-25 08:03:00 Test Item Value Reference Range Interpretation Comments Lymphocytes (test code = Lymphocytes) 4.3 20.0-40.0 [place] [address]-07-25 08:03:00 Test Item Value Reference Range Interpretation Comments Monocytes (test code = Monocytes) 1.6 2.0-12.0 [place] 778932-07-25 08:03:00 Test Item Value Reference Range Interpretation Comments Basophils (test code = 0.1 See_Comment [Aut omated message] The Basophils) system which ge nerated this result tra nsmitted reference range : <=1.0. The reference r hugo was not used to int erpret this result as normal/abnormal . [facility] CenterHyahtcnNOUMVZTUKZ9835-09-27 08:03:00 Test Item Value Reference Range Interpretation Comments Neutrophils # (test code = Neutrophils 7.0 1.5-8.1 #) [place] 778932-07-25 08:03:00 Test Item Value Reference Range Interpretation Comments Lymphocytes # (test code = Lymphocytes 0.3 1.0-5.5 #) [place] [address]-07-25 08:03:00 Test Item Value Reference Range Interpretation Comments Monocytes # (test code 0.1 See_Comment [Aut omated message] The = Monocytes #) system which generated this result tra nsmitted reference range : <=0.8. The reference r hugo was not used to int erpret this result as normal/abnormal . [place] 778932-07-25 08:03:00 Test Item Value Reference Range Interpretation Comments Microcyte (test code = 1+ *ABN*(06/13/22 Microcyte) 3:03 AM) [facility] [employer] [id number] 08:03:00 Test Item Value Reference Range Interpretation Comments HS Troponin I 1 Hr (test code = HS 50 Troponin I 1 Hr) [facility] [id number] 08:03:00 Test Item Value Reference Range Interpretation Comments HS Troponin I 0 to 1 See Note 5(06/13/22 Hour Delta (test code = 3:03 AM) HS Troponin I 0 to 1 Hour Delta) [facility] [employer] [id number] 08:03:00 Test Item Value Reference Range Interpretation Comments Glucose Lvl (test code = Glucose Lvl) 142 70-99 [facility] [employer] [id number] 08:03:00 Test Item Value Reference Range Interpretation Comments BUN (test code = BUN) 21 06-10 [facility] [employer] [id number] 08:03:00 Test Item Value Reference Range Interpretation Comments Creatinine Lvl (test code = Creatinine 0.84 0.50-1.40 Lvl) [facility] [employer] [id number] 08:03:00 Test Item Value Reference Range Interpretation Comments Sodium Lvl (test code = Sodium Lvl) 133 135-145 [facility] [employer] [id number] 08:03:00 Test Item Value Reference Range Interpretation Comments Potassium Lvl (test code = Potassium 4.4 3.5-5.1 Lvl) [facility] [employer] [id number] 08:03:00 Test Item Value Reference Range Interpretation Comments Chloride Lvl (test code = Chloride Lvl) 98 95-109 [facility] [employer] [id number] 08:03:00 Test Item Value Reference Range Interpretation Comments CO2 (test code = CO2) 25 24-32 [facility] [employer]2022-07-25 08:03:00 Test Item Value Reference Range Interpretation Comments AGAP (test code = AGAP) 14.4 10.0-20.0 [facility] [employer] [id number] 08:03:00 Test Item Value Reference Range Interpretation Comments Calcium Lvl (test code = Calcium Lvl) 9.1 8.5-10.5 [facility] [employer] [id number] 08:03:00 Test Item Value Reference Range Interpretation Comments B/C Ratio (test code = B/C Ratio) 25 1 6-25 [place] 852652-07-25 08:03:00 Test Item Value Reference Range Interpretation Comments Total Protein (test code = Total 6.7 6.4-8.4 Protein) [place] 852652-07-25 08:03:00 Test Item Value Reference Range Interpretation Comments Albumin Lvl (test code = Albumin Lvl) 3.2 3.5-5.0 [place] [address]-07-25 08:03:00 Test Item Value Reference Range Interpretation Comments Globulin (test code = Globulin) 3.5 2.7-4.2 [place] [address]-07-25 08:03:00 Test Item Value Reference Range Interpretation Comments A/G Ratio (test code = A/G Ratio) 0.9 1 0.7-1.6 [place] 852652-07-25 08:03:00 Test Item Value Reference Range Interpretation Comments ALT (test code = ALT) 19 See_Comment [Auto mated message] The system which ge nerated this result transmit lavon reference range : <=65. The reference range was not used to interpr et this result as dionne l/abnormal. [place] 852652-07-25 08:03:00 Test Item Value Reference Range Interpretation Comments AST (test code = AST) 26 See_Comment [Auto mated message] The system which ge nerated this result transmit lavon reference range : <=37. The reference range was not used to interpr et this result as dionne l/abnormal. [place] 852652-07-25 08:03:00 Test Item Value Reference Range Interpretation Comments Alk Phos (test code = Alk Phos) 56 39-136 [facility] [id number] 08:03:00 Test Item Value Reference Range Interpretation Comments Bili Total (test code = Bili Total) 1.0 0.2-1.3 [place] 852652-07-25 08:03:00 Test Item Value Reference Range Interpretation Comments eGFR (test code = eGFR) 67 [place] 852652-07-25 08:03:00 Test Item Value Reference Range Interpretation Comments Magnesium Lvl (test code = Magnesium 1.9 1.8-2.4 Lvl) [place] 852652-07-25 08:03:00 Test Item Value Reference Range Interpretation Comments Procalcitonin Lvl (test no gt See_Comment [Au tomated message] code = Procalcitonin Lvl) Th e system which generated this result transmitted ref erence range: <=0.10. The reference range was not used to interpr et this result as normal/abnormal . [facility]2022-07-25 08:03:00 Test Item Value Reference Range Interpretation Comments LDH (test code = LDH) 354 98-192 [facility]HxkmeciJSXKDMKGJS4539-20-09 08:03:00 Test Item Value Reference Range Interpretation Comments WBC (test code = WBC) 7.5 3.7-10.4 [facility] CenterEcxpvxhFJFQIUOUHH5349-44-70 08:03:00 Test Item Value Reference Range Interpretation Comments RBC (test code = RBC) 3.44 4.20-5.40 [place] 778932-07-25 08:03:00 Test Item Value Reference Range Interpretation Comments Hgb (test code = Hgb) 8.3 12.0-16.0 [facility] CenterHdlxjsfTVZKLLUPBT1364-97-95 08:03:00 Test Item Value Reference Range Interpretation Comments Hct (test code = Hct) 26.2 36.0-48.0 [facility] CenterLcsgkuaUQMRJHQRSY1260-56-07 08:03:00 Test Item Value Reference Range Interpretation Comments MCV (test code = MCV) 76.1 80.0-98.0 [facility] CenterSjqwnzhKNLYALXFXL0974-76-36 08:03:00 Test Item Value Reference Range Interpretation Comments MCH (test code = MCH) 24.0 pg 27.0-31.0 [facility] CenterIvfelcwQYXABDYXWQ6041-04-06 08:03:00 Test Item Value Reference Range Interpretation Comments MCHC (test code = MCHC) 31.6 32.0-36.0 [place] 778932-07-25 08:03:00 Test Item Value Reference Range Interpretation Comments RDW (test code = RDW) 20.9 11.5-14.5 [facility] CenterRfzpwqiWCAWIXAAJL7532-48-35 08:03:00 Test Item Value Reference Range Interpretation Comments Platelet (test code = Platelet) 289 133-450 [facility] CenterHrsoqqaWBHLKIRBKG1215-25-63 08:03:00 Test Item Value Reference Range Interpretation Comments MPV (test code = MPV) 7.5 7.4-10.4 [facility] CenterDejscndJNHOVWXSHA4790-15-43 08:03:00 Test Item Value Reference Range Interpretation Comments Segs (test code = Segs) 94.0 45.0-75.0 [facility] CenterTujqwjkGLFGEMQLTW7804-00-96 08:03:00 Test Item Value Reference Range Interpretation Comments Lymphocytes (test code = Lymphocytes) 4.3 20.0-40.0 [facility] CenterXvfeppzIYENZAQZYG8705-34-60 08:03:00 Test Item Value Reference Range Interpretation Comments Monocytes (test code = Monocytes) 1.6 2.0-12.0 [facility] CenterZdcrhdlOVAKXAFAUR4677-97-59 08:03:00 Test Item Value Reference Range Interpretation Comments Basophils (test code = 0.1 See_Comment [Aut omated message] The Basophils) system which ge nerated this result tra nsmitted reference range : <=1.0. The reference r hugo was not used to int erpret this result as normal/abnormal . [facility] CenterFdqakbtIOEZFKJIPN3060-86-53 08:03:00 Test Item Value Reference Range Interpretation Comments Neutrophils # (test code = Neutrophils 7.0 1.5-8.1 #) [facility] CenterWdbxxbpGFGBCTPAJO1230-14-07 08:03:00 Test Item Value Reference Range Interpretation Comments Lymphocytes # (test code = Lymphocytes 0.3 1.0-5.5 #) [facility] CenterGojqlqnZFNOBYJHRH1432-54-62 08:03:00 Test Item Value Reference Range Interpretation Comments Monocytes # (test code 0.1 See_Comment [Aut omated message] The = Monocytes #) system which generated this result tra nsmitted reference range : <=0.8. The reference r hugo was not used to int erpret this result as normal/abnormal . [facility] CenterJspdtroVTEMFRNMGN9788-09-56 08:03:00 Test Item Value Reference Range Interpretation Comments Microcyte (test code = 1+ *ABN*(06/13/22 Microcyte) 3:03 AM) [facility] TIAXRDZ6885-36-45 08:03:00 Test Item Value Reference Range Interpretation Comments HS Troponin I 1 Hr (test code = HS 50 Troponin I 1 Hr) [facility] [id number] 08:03:00 Test Item Value Reference Range Interpretation Comments HS Troponin I 0 to 1 See Note 5(06/13/22 Hour Delta (test code = 3:03 AM) HS Troponin I 0 to 1 Hour Delta) [place] 852652-07-25 08:03:00 Test Item Value Reference Range Interpretation Comments Glucose Lvl (test code = Glucose Lvl) 142 70-99 [place] 852652-07-25 08:03:00 Test Item Value Reference Range Interpretation Comments BUN (test code = BUN) 21 - [place] 852652-07-25 08:03:00 Test Item Value Reference Range Interpretation Comments Creatinine Lvl (test code = Creatinine 0.84 0.50-1.40 Lvl) [place] 852652-07-25 08:03:00 Test Item Value Reference Range Interpretation Comments Sodium Lvl (test code = Sodium Lvl) 133 135-145 [place] 852652-07-25 08:03:00 Test Item Value Reference Range Interpretation Comments Potassium Lvl (test code = Potassium 4.4 3.5-5.1 Lvl) [place] 852652-07-25 08:03:00 Test Item Value Reference Range Interpretation Comments Chloride Lvl (test code = Chloride Lvl) 98 95-109 [place] 852652-07-25 08:03:00 Test Item Value Reference Range Interpretation Comments CO2 (test code = CO2) 25 24-32 [place] 852652-07-25 08:03:00 Test Item Value Reference Range Interpretation Comments AGAP (test code = AGAP) 14.4 10.0-20.0 [facility]2022-07-25 08:03:00 Test Item Value Reference Range Interpretation Comments Calcium Lvl (test code = Calcium Lvl) 9.1 8.5-10.5 [place] 852652-07-25 08:03:00 Test Item Value Reference Range Interpretation Comments B/C Ratio (test code = B/C Ratio) 25 1 6-25 [place] 852652-07-25 08:03:00 Test Item Value Reference Range Interpretation Comments Total Protein (test code = Total 6.7 6.4-8.4 Protein) [place] 852652-07-25 08:03:00 Test Item Value Reference Range Interpretation Comments Albumin Lvl (test code = Albumin Lvl) 3.2 3.5-5.0 [facility] [employer] [id number] 08:03:00 Test Item Value Reference Range Interpretation Comments Globulin (test code = Globulin) 3.5 2.7-4.2 [facility] [id number] 08:03:00 Test Item Value Reference Range Interpretation Comments A/G Ratio (test code = A/G Ratio) 0.9 1 0.7-1.6 [facility] [id number] 08:03:00 Test Item Value Reference Range Interpretation Comments ALT (test code = ALT) 19 See_Comment [Auto mated message] The system which ge nerated this result transmit lavon reference range : <=65. The reference range was not used to interpr et this result as dionne l/abnormal. [facility] [employer] [id number] 08:03:00 Test Item Value Reference Range Interpretation Comments AST (test code = AST) 26 See_Comment [Auto mated message] The system which ge nerated this result transmit lavon reference range : <=37. The reference range was not used to interpr et this result as dionne l/abnormal. [facility] [employer] [id number] 08:03:00 Test Item Value Reference Range Interpretation Comments Alk Phos (test code = Alk Phos) 56 39-136 [facility] [employer] [id number] 08:03:00 Test Item Value Reference Range Interpretation Comments Bili Total (test code = Bili Total) 1.0 0.2-1.3 [facility] [employer] [id number] 08:03:00 Test Item Value Reference Range Interpretation Comments eGFR (test code = eGFR) 67 [facility] [employer] [id number] 08:03:00 Test Item Value Reference Range Interpretation Comments Magnesium Lvl (test code = Magnesium 1.9 1.8-2.4 Lvl) [facility] [id number] 08:03:00 Test Item Value Reference Range Interpretation Comments Procalcitonin Lvl (test no gt See_Comment [Au tomated message] code = Procalcitonin Lvl) Th e system which generated this result transmitted ref erence range: <=0.10. The reference range was not used to interpr et this result as normal/abnormal . [facility] [employer] [id number] 08:03:00 Test Item Value Reference Range Interpretation Comments LDH (test code = LDH) 354 98-192 [facility] CenterNowkhseYRXSSMLXEE1655-18-85 08:03:00 Test Item Value Reference Range Interpretation Comments WBC (test code = WBC) 7.5 3.7-10.4 [facility] CenterRezndzxDGQYTZUSAK3899-70-54 08:03:00 Test Item Value Reference Range Interpretation Comments RBC (test code = RBC) 3.44 4.20-5.40 [facility] CenterOwqxtskDLRTEAPIIC9044-39-10 08:03:00 Test Item Value Reference Range Interpretation Comments Hgb (test code = Hgb) 8.3 12.0-16.0 [facility] CenterNdktvalYBKWEKOITO6097-49-91 08:03:00 Test Item Value Reference Range Interpretation Comments Hct (test code = Hct) 26.2 36.0-48.0 [place] 778932-07-25 08:03:00 Test Item Value Reference Range Interpretation Comments MCV (test code = MCV) 76.1 80.0-98.0 [facility] CenterQpnncdrTSOSZPFHGS0731-93-93 08:03:00 Test Item Value Reference Range Interpretation Comments MCH (test code = MCH) 24.0 pg 27.0-31.0 [facility] CenterAcmbbaeQROKPGMMVW7936-86-41 08:03:00 Test Item Value Reference Range Interpretation Comments MCHC (test code = MCHC) 31.6 32.0-36.0 [facility] CenterHnlaljbNECBGVHDEG6698-86-45 08:03:00 Test Item Value Reference Range Interpretation Comments RDW (test code = RDW) 20.9 11.5-14.5 [facility] CenterYvykwaxDKMNTEZXBA1358-85-39 08:03:00 Test Item Value Reference Range Interpretation Comments Platelet (test code = Platelet) 289 133-450 [facility] CenterHdkxmxjCXDFTZORVL9311-92-44 08:03:00 Test Item Value Reference Range Interpretation Comments MPV (test code = MPV) 7.5 7.4-10.4 [facility] CenterBemjezgXZJUBTAYOD9063-67-60 08:03:00 Test Item Value Reference Range Interpretation Comments Segs (test code = Segs) 94.0 45.0-75.0 [facility] CenterRwwnuxcVXDLREXEJL7978-97-46 08:03:00 Test Item Value Reference Range Interpretation Comments Lymphocytes (test code = Lymphocytes) 4.3 20.0-40.0 [facility] TexasXidkubuBJZFCBAZJC0294-83-39 08:03:00 Test Item Value Reference Range Interpretation Comments Monocytes (test code = Monocytes) 1.6 2.0-12.0 [facility]villeMctlatnHERGEYRGVK8483-66-72 08:03:00 Test Item Value Reference Range Interpretation Comments Basophils (test code = 0.1 See_Comment [Aut omated message] The Basophils) system which ge nerated this result tra nsmitted reference range : <=1.0. The reference r hugo was not used to int erpret this result as normal/abnormal . [facility] TexasHjoshzqSEHTWGOMCO2097-92-15 08:03:00 Test Item Value Reference Range Interpretation Comments Neutrophils # (test code = Neutrophils 7.0 1.5-8.1 #) [facility]es[facility]ziILXGBIEKCB2128-[facility]-50 08:03:00 Test Item Value Reference Range Interpretation Comments Lymphocytes # (test code = Lymphocytes 0.3 1.0-5.5 #) [facility] TexasDkedgpeERJDCAQARM8086-19-54 08:03:00 Test Item Value Reference Range Interpretation Comments Monocytes # (test code 0.1 See_Comment [Aut omated message] The = Monocytes #) system which generated this result tra nsmitted reference range : <=0.8. The reference r hugo was not used to int erpret this result as normal/abnormal . [facility] TexasSzsamaqWZOYLVTEGI8865-32-87 08:03:00 Test Item Value Reference Range Interpretation Comments Microcyte (test code = 1+ *ABN*(06/13/22 Microcyte) 3:03 AM) [facility] [employer]2022-07-25 08:03:00 Test Item Value Reference Range Interpretation Comments HS Troponin I 1 Hr (test code = HS 50 Troponin I 1 Hr) [facility] [employer] [facility]2022-07-25 08:03:00 Test Item Value Reference Range Interpretation Comments HS Troponin I 0 to 1 See Note 5(06/13/22 Hour Delta (test code = 3:03 AM) HS Troponin I 0 to 1 Hour Delta) [facility] [employer]2022-07-25 08:03:00 Test Item Value Reference Range Interpretation Comments Glucose Lvl (test code = Glucose Lvl) 142 70-99 [facility] TexasFre[facility] Scientific Holdings, LLCUXLSG3502-67-07 08:03:00 Test Item Value Reference Range Interpretation Comments BUN (test code = BUN) 21 7-22 [place] 852652-07-25 08:03:00 Test Item Value Reference Range Interpretation Comments Creatinine Lvl (test code = Creatinine 0.84 0.50-1.40 Lvl) [place] 852652-07-25 08:03:00 Test Item Value Reference Range Interpretation Comments Sodium Lvl (test code = Sodium Lvl) 133 135-145 [place] 852652-07-25 08:03:00 Test Item Value Reference Range Interpretation Comments Potassium Lvl (test code = Potassium 4.4 3.5-5.1 Lvl) [place] 852652-07-25 08:03:00 Test Item Value Reference Range Interpretation Comments Chloride Lvl (test code = Chloride Lvl) 98 95-109 [place] 852652-07-25 08:03:00 Test Item Value Reference Range Interpretation Comments CO2 (test code = CO2) 24-32 [place] 852652-07-25 08:03:00 Test Item Value Reference Range Interpretation Comments AGAP (test code = AGAP) 14.4 10.0-20.0 [place] 852652-07-25 08:03:00 Test Item Value Reference Range Interpretation Comments Calcium Lvl (test code = Calcium Lvl) 9.1 8.5-10.5 [place] 852652-07-25 08:03:00 Test Item Value Reference Range Interpretation Comments B/C Ratio (test code = B/C Ratio) 25 1 6-25 [place] 852652-07-25 08:03:00 Test Item Value Reference Range Interpretation Comments Total Protein (test code = Total 6.7 6.4-8.4 Protein) [place] 852652-07-25 08:03:00 Test Item Value Reference Range Interpretation Comments Albumin Lvl (test code = Albumin Lvl) 3.2 3.5-5.0 [place] 852652-07-25 08:03:00 Test Item Value Reference Range Interpretation Comments Globulin (test code = Globulin) 3.5 2.7-4.2 [place] 852652-07-25 08:03:00 Test Item Value Reference Range Interpretation Comments A/G Ratio (test code = A/G Ratio) 0.9 1 0.7-1.6 [facility] [employer] [id number] 08:03:00 Test Item Value Reference Range Interpretation Comments ALT (test code = ALT) 19 See_Comment [Auto mated message] The system which ge nerated this result transmit lavon reference range : <=65. The reference range was not used to interpr et this result as dionne l/abnormal. [facility] [employer] [id number] 08:03:00 Test Item Value Reference Range Interpretation Comments AST (test code = AST) 26 See_Comment [Auto mated message] The system which ge nerated this result transmit lavon reference range : <=37. The reference range was not used to interpr et this result as dionne l/abnormal. [facility] [employer] [id number] 08:03:00 Test Item Value Reference Range Interpretation Comments Alk Phos (test code = Alk Phos) 56 39-136 [facility] [id number] 08:03:00 Test Item Value Reference Range Interpretation Comments Bili Total (test code = Bili Total) 1.0 0.2-1.3 [facility] [id number] 08:03:00 Test Item Value Reference Range Interpretation Comments eGFR (test code = eGFR) 67 [facility] [employer] [id number] 08:03:00 Test Item Value Reference Range Interpretation Comments Magnesium Lvl (test code = Magnesium 1.9 1.8-2.4 Lvl) [facility] [id number] 08:03:00 Test Item Value Reference Range Interpretation Comments Procalcitonin Lvl (test no gt See_Comment [Au tomated message] code = Procalcitonin Lvl) Th e system which generated this result transmitted ref erence range: <=0.10. The reference range was not used to interpr et this result as normal/abnormal . [facility] [employer] [id number] 08:03:00 Test Item Value Reference Range Interpretation Comments LDH (test code = LDH) 354 98-192 [facility] GreenvilleIwiqbyeXOGJVSKWTS2266-69-69 08:03:00 Test Item Value Reference Range Interpretation Comments WBC (test code = WBC) 7.5 3.7-10.4 [facility] GreenvilleMjpweowJFQXXFVUFC3706-53-94 08:03:00 Test Item Value Reference Range Interpretation Comments RBC (test code = RBC) 3.44 4.20-5.40 [facility] CenterDijfxoiIBHFWEWIPM6421-46-39 08:03:00 Test Item Value Reference Range Interpretation Comments Hgb (test code = Hgb) 8.3 12.0-16.0 [place] 778932-07-25 08:03:00 Test Item Value Reference Range Interpretation Comments Hct (test code = Hct) 26.2 36.0-48.0 [facility] CenterKcfdmzbHKSMBEFKXR7211-12-18 08:03:00 Test Item Value Reference Range Interpretation Comments MCV (test code = MCV) 76.1 80.0-98.0 [facility] CenterHxpwcixOOGNLGSIPX6424-26-73 08:03:00 Test Item Value Reference Range Interpretation Comments MCH (test code = MCH) 24.0 pg 27.0-31.0 [place] 778932-07-25 08:03:00 Test Item Value Reference Range Interpretation Comments MCHC (test code = MCHC) 31.6 32.0-36.0 [facility] CenterIjoowsrMPGZIOCYLR2886-21-35 08:03:00 Test Item Value Reference Range Interpretation Comments RDW (test code = RDW) 20.9 11.5-14.5 [facility] CenterAptaokbJUDHSLBFXM7672-37-95 08:03:00 Test Item Value Reference Range Interpretation Comments Platelet (test code = Platelet) 289 133-450 [facility] CenterYkoprclBXBTGMYJZW3348-52-18 08:03:00 Test Item Value Reference Range Interpretation Comments MPV (test code = MPV) 7.5 7.4-10.4 [place] 778932-07-25 08:03:00 Test Item Value Reference Range Interpretation Comments Segs (test code = Segs) 94.0 45.0-75.0 [facility] CenterAchuzjmQRDUXIOOCD4636-73-59 08:03:00 Test Item Value Reference Range Interpretation Comments Lymphocytes (test code = Lymphocytes) 4.3 20.0-40.0 [place] 778932-07-25 08:03:00 Test Item Value Reference Range Interpretation Comments Monocytes (test code = Monocytes) 1.6 2.0-12.0 [place] 778932-07-25 08:03:00 Test Item Value Reference Range Interpretation Comments Basophils (test code = 0.1 See_Comment [Aut omated message] The Basophils) system which ge nerated this result tra nsmitted reference range : <=1.0. The reference r hugo was not used to int erpret this result as normal/abnormal . [facility] TexasBnnbjkcVXCGIEAQRS5836-03-76 08:03:00 Test Item Value Reference Range Interpretation Comments Neutrophils # (test code = Neutrophils 7.0 1.5-8.1 #) [facility] TexasLjuolulYXGEAVDSXC2264-58-53 08:03:00 Test Item Value Reference Range Interpretation Comments Lymphocytes # (test code = Lymphocytes 0.3 1.0-5.5 #) [facility] TexasGxhnlajFPINIHJABS1072-78-87 08:03:00 Test Item Value Reference Range Interpretation Comments Monocytes # (test code 0.1 See_Comment [Aut omated message] The = Monocytes #) system which generated this result tra nsmitted reference range : <=0.8. The reference r hugo was not used to int erpret this result as normal/abnormal . [facility] GreenvilleIevwqidUOUNAXJFAB1623-35-45 08:03:00 Test Item Value Reference Range Interpretation Comments Microcyte (test code = 1+ *ABN*(06/13/22 Microcyte) 3:03 AM) [facility] [employer]2022-07-25 08:03:00 Test Item Value Reference Range Interpretation Comments HS Troponin I 1 Hr (test code = HS 50 Troponin I 1 Hr) [facility] [employer]2022-07-25 08:03:00 Test Item Value Reference Range Interpretation Comments HS Troponin I 0 to 1 See Note 5(06/13/22 Hour Delta (test code = 3:03 AM) HS Troponin I 0 to 1 Hour Delta) [facility] TexasFre[facility] Scientific Holdings, LLCIXPJR4854-23-43 08:03:00 Test Item Value Reference Range Interpretation Comments Glucose Lvl (test code = Glucose Lvl) 142 70-99 [facility] [employer]2022-07-25 08:03:00 Test Item Value Reference Range Interpretation Comments BUN (test code = BUN) 21 - [facility] TexasFre[facility] Holdings, LLCZDYTO0846-31-25 08:03:00 Test Item Value Reference Range Interpretation Comments Creatinine Lvl (test code = Creatinine 0.84 0.50-1.40 Lvl) [facility] TexasFre[facility] Holdings, LLCNOCUX1591-09-31 08:03:00 Test Item Value Reference Range Interpretation Comments Sodium Lvl (test code = Sodium Lvl) 133 135-145 [place] 852652-07-25 08:03:00 Test Item Value Reference Range Interpretation Comments Potassium Lvl (test code = Potassium 4.4 3.5-5.1 Lvl) [place] 852652-07-25 08:03:00 Test Item Value Reference Range Interpretation Comments Chloride Lvl (test code = Chloride Lvl) 98 95-109 [place] 852652-07-25 08:03:00 Test Item Value Reference Range Interpretation Comments CO2 (test code = CO2) 25 24-32 [place] 852652-07-25 08:03:00 Test Item Value Reference Range Interpretation Comments AGAP (test code = AGAP) 14.4 10.0-20.0 [place] 852652-07-25 08:03:00 Test Item Value Reference Range Interpretation Comments Calcium Lvl (test code = Calcium Lvl) 9.1 8.5-10.5 [place] 852652-07-25 08:03:00 Test Item Value Reference Range Interpretation Comments B/C Ratio (test code = B/C Ratio) 25 1 6-25 [place] 852652-07-25 08:03:00 Test Item Value Reference Range Interpretation Comments Total Protein (test code = Total 6.7 6.4-8.4 Protein) [place] 852652-07-25 08:03:00 Test Item Value Reference Range Interpretation Comments Albumin Lvl (test code = Albumin Lvl) 3.2 3.5-5.0 [place] 852652-07-25 08:03:00 Test Item Value Reference Range Interpretation Comments Globulin (test code = Globulin) 3.5 2.7-4.2 [place] 852652-07-25 08:03:00 Test Item Value Reference Range Interpretation Comments A/G Ratio (test code = A/G Ratio) 0.9 1 0.7-1.6 [place] 852652-07-25 08:03:00 Test Item Value Reference Range Interpretation Comments ALT (test code = ALT) 19 See_Comment [Auto mated message] The system which ge nerated this result transmit lavon reference range : <=65. The reference range was not used to interpr et this result as dionne l/abnormal. [facility] [employer] [id number] 08:03:00 Test Item Value Reference Range Interpretation Comments AST (test code = AST) 26 See_Comment [Auto mated message] The system which ge nerated this result transmit lavon reference range : <=37. The reference range was not used to interpr et this result as dionne l/abnormal. [facility] [id number] 08:03:00 Test Item Value Reference Range Interpretation Comments Alk Phos (test code = Alk Phos) 56 39-136 [facility] [id number] 08:03:00 Test Item Value Reference Range Interpretation Comments Bili Total (test code = Bili Total) 1.0 0.2-1.3 [facility] [id number] 08:03:00 Test Item Value Reference Range Interpretation Comments eGFR (test code = eGFR) 67 [facility] [id number] 08:03:00 Test Item Value Reference Range Interpretation Comments Magnesium Lvl (test code = Magnesium 1.9 1.8-2.4 Lvl) [facility] [id number] 08:03:00 Test Item Value Reference Range Interpretation Comments Procalcitonin Lvl (test no gt See_Comment [Au tomated message] code = Procalcitonin Lvl) Th e system which generated this result transmitted ref erence range: <=0.10. The reference range was not used to interpr et this result as normal/abnormal . [facility] [id number] 08:03:00 Test Item Value Reference Range Interpretation Comments LDH (test code = LDH) 354 98-192 [facility] GreenvilleAoulxltHCHAZRCOWH8948-72-50 08:03:00 Test Item Value Reference Range Interpretation Comments WBC (test code = WBC) 7.5 3.7-10.4 [facility] GreenvilleZdtzzhdDNMYREYTFF7646-59-64 08:03:00 Test Item Value Reference Range Interpretation Comments RBC (test code = RBC) 3.44 4.20-5.40 [facility] GreenvilleTnllnrbOSZTEHKGXQ4177-39-74 08:03:00 Test Item Value Reference Range Interpretation Comments Hgb (test code = Hgb) 8.3 12.0-16.0 [facility] GreenvilleRbliewfGPIDEZHUGD0484-64-76 08:03:00 Test Item Value Reference Range Interpretation Comments Hct (test code = Hct) 26.2 36.0-48.0 [place] 778932-07-25 08:03:00 Test Item Value Reference Range Interpretation Comments MCV (test code = MCV) 76.1 80.0-98.0 [place] 778932-07-25 08:03:00 Test Item Value Reference Range Interpretation Comments MCH (test code = MCH) 24.0 pg 27.0-31.0 [place] 778932-07-25 08:03:00 Test Item Value Reference Range Interpretation Comments MCHC (test code = MCHC) 31.6 32.0-36.0 [place] 778932-07-25 08:03:00 Test Item Value Reference Range Interpretation Comments RDW (test code = RDW) 20.9 11.5-14.5 [place] 778932-07-25 08:03:00 Test Item Value Reference Range Interpretation Comments Platelet (test code = Platelet) 289 133-450 [facility] CenterNwmfcjoGHCJYHVVCC3711-29-45 08:03:00 Test Item Value Reference Range Interpretation Comments MPV (test code = MPV) 7.5 7.4-10.4 [place] 778932-07-25 08:03:00 Test Item Value Reference Range Interpretation Comments Segs (test code = Segs) 94.0 45.0-75.0 [place] 778932-07-25 08:03:00 Test Item Value Reference Range Interpretation Comments Lymphocytes (test code = Lymphocytes) 4.3 20.0-40.0 [place] 778932-07-25 08:03:00 Test Item Value Reference Range Interpretation Comments Monocytes (test code = Monocytes) 1.6 2.0-12.0 [place] [address]-07-25 08:03:00 Test Item Value Reference Range Interpretation Comments Basophils (test code = 0.1 See_Comment [Aut omated message] The Basophils) system which ge nerated this result tra nsmitted reference range : <=1.0. The reference r hugo was not used to int erpret this result as normal/abnormal . [place] 778932-07-25 08:03:00 Test Item Value Reference Range Interpretation Comments Neutrophils # (test code = Neutrophils 7.0 1.5-8.1 #) [facility] TexasFzmeeubYDYFZPLYMU3816-28-92 08:03:00 Test Item Value Reference Range Interpretation Comments Lymphocytes # (test code = Lymphocytes 0.3 1.0-5.5 #) [facility] GreenvilleHsiyryrIDQWHWSUUK6819-90-43 08:03:00 Test Item Value Reference Range Interpretation Comments Monocytes # (test code 0.1 See_Comment [Aut omated message] The = Monocytes #) system which generated this result tra nsmitted reference range : <=0.8. The reference r hugo was not used to int erpret this result as normal/abnormal . [facility] TexasUxzldrzLTHFHJKBZX2778-05-39 08:03:00 Test Item Value Reference Range Interpretation Comments Microcyte (test code = 1+ *ABN*(06/13/22 Microcyte) 3:03 AM) [facility] [employer]2022-[facility] 08:03:00 Test Item Value Reference Range Interpretation Comments HS Troponin I 1 Hr (test code = HS 50 Troponin I 1 Hr) [facility] [employer]20[facility]-25 08:03:00 Test Item Value Reference Range Interpretation Comments HS Troponin I 0 to 1 See Note 5(06/13/22 Hour Delta (test code = 3:03 AM) HS Troponin I 0 to 1 Hour Delta) [facility] [employer]2022-07-25 08:03:00 Test Item Value Reference Range Interpretation Comments Glucose Lvl (test code = Glucose Lvl) 142 70-99 [facility] [id number] 08:03:00 Test Item Value Reference Range Interpretation Comments BUN (test code = BUN) 21 - [facility] [employer]2022-07-25 08:03:00 Test Item Value Reference Range Interpretation Comments Creatinine Lvl (test code = Creatinine 0.84 0.50-1.40 Lvl) [facility] [employer] [id number] 08:03:00 Test Item Value Reference Range Interpretation Comments Sodium Lvl (test code = Sodium Lvl) 133 135-145 [facility] TexasFre[facility] Holdings, [id number] 08:03:00 Test Item Value Reference Range Interpretation Comments Potassium Lvl (test code = Potassium 4.4 3.5-5.1 Lvl) [facility]Fre[facility] Holdings, LLCNULCA7737-63-53 08:03:00 Test Item Value Reference Range Interpretation Comments Chloride Lvl (test code = Chloride Lvl) 98 95-109 [place] 852652-07-25 08:03:00 Test Item Value Reference Range Interpretation Comments CO2 (test code = CO2) 25 24-32 [place] 852652-07-25 08:03:00 Test Item Value Reference Range Interpretation Comments AGAP (test code = AGAP) 14.4 10.0-20.0 [place] 852652-07-25 08:03:00 Test Item Value Reference Range Interpretation Comments Calcium Lvl (test code = Calcium Lvl) 9.1 8.5-10.5 [place] 852652-07-25 08:03:00 Test Item Value Reference Range Interpretation Comments B/C Ratio (test code = B/C Ratio) 25 1 6-25 [place] 852652-07-25 08:03:00 Test Item Value Reference Range Interpretation Comments Total Protein (test code = Total 6.7 6.4-8.4 Protein) [place] 852652-07-25 08:03:00 Test Item Value Reference Range Interpretation Comments Albumin Lvl (test code = Albumin Lvl) 3.2 3.5-5.0 [place] 852652-07-25 08:03:00 Test Item Value Reference Range Interpretation Comments Globulin (test code = Globulin) 3.5 2.7-4.2 [place] 852652-07-25 08:03:00 Test Item Value Reference Range Interpretation Comments A/G Ratio (test code = A/G Ratio) 0.9 1 0.7-1.6 [place] 852652-07-25 08:03:00 Test Item Value Reference Range Interpretation Comments ALT (test code = ALT) 19 See_Comment [Auto mated message] The system which ge nerated this result transmit lavon reference range : <=65. The reference range was not used to interpr et this result as dionne l/abnormal. [facility]villeTriple[facility] Group [id number] 08:03:00 Test Item Value Reference Range Interpretation Comments AST (test code = AST) 26 See_Comment [Auto mated message] The system which ge nerated this result transmit lavon reference range : <=37. The reference range was not used to interpr et this result as dionne l/abnormal. [place] 852652-07-25 08:03:00 Test Item Value Reference Range Interpretation Comments Alk Phos (test code = Alk Phos) 56 39-136 [place] 852652-07-25 08:03:00 Test Item Value Reference Range Interpretation Comments Bili Total (test code = Bili Total) 1.0 0.2-1.3 [place] 852652-07-25 08:03:00 Test Item Value Reference Range Interpretation Comments eGFR (test code = eGFR) 67 [place] 852652-07-25 08:03:00 Test Item Value Reference Range Interpretation Comments Magnesium Lvl (test code = Magnesium 1.9 1.8-2.4 Lvl) [place] 852652-07-25 08:03:00 Test Item Value Reference Range Interpretation Comments Procalcitonin Lvl (test no gt See_Comment [Au tomated message] code = Procalcitonin Lvl) Th e system which generated this result transmitted ref erence range: <=0.10. The reference range was not used to interpr et this result as normal/abnormal . [place] 852652-07-25 08:03:00 Test Item Value Reference Range Interpretation Comments LDH (test code = LDH) 354 98-192 [facility] CenterAnerclzREOLTUBGPA6179-24-84 08:03:00 Test Item Value Reference Range Interpretation Comments WBC (test code = WBC) 7.5 3.7-10.4 [place] 778932-07-25 08:03:00 Test Item Value Reference Range Interpretation Comments RBC (test code = RBC) 3.44 4.20-5.40 [place] 778932-07-25 08:03:00 Test Item Value Reference Range Interpretation Comments Hgb (test code = Hgb) 8.3 12.0-16.0 [place] [address]-07-25 08:03:00 Test Item Value Reference Range Interpretation Comments Hct (test code = Hct) 26.2 36.0-48.0 [place] [address]-07-25 08:03:00 Test Item Value Reference Range Interpretation Comments MCV (test code = MCV) 76.1 80.0-98.0 [place] 778932-07-25 08:03:00 Test Item Value Reference Range Interpretation Comments MCH (test code = MCH) 24.0 pg 27.0-31.0 [place] 778932-07-25 08:03:00 Test Item Value Reference Range Interpretation Comments MCHC (test code = MCHC) 31.6 32.0-36.0 [place] 778932-07-25 08:03:00 Test Item Value Reference Range Interpretation Comments RDW (test code = RDW) 20.9 11.5-14.5 [place] 778932-07-25 08:03:00 Test Item Value Reference Range Interpretation Comments Platelet (test code = Platelet) 289 133-450 [facility] CenterCekyoblLZLDRCPJUW4842-61-90 08:03:00 Test Item Value Reference Range Interpretation Comments MPV (test code = MPV) 7.5 7.4-10.4 [place] 778932-07-25 08:03:00 Test Item Value Reference Range Interpretation Comments Segs (test code = Segs) 94.0 45.0-75.0 [facility] CenterPlsuhjrNXFUUBUIQZ6841-29-79 08:03:00 Test Item Value Reference Range Interpretation Comments Lymphocytes (test code = Lymphocytes) 4.3 20.0-40.0 [place] 778932-07-25 08:03:00 Test Item Value Reference Range Interpretation Comments Monocytes (test code = Monocytes) 1.6 2.0-12.0 [place] 778932-07-25 08:03:00 Test Item Value Reference Range Interpretation Comments Basophils (test code = 0.1 See_Comment [Aut omated message] The Basophils) system which ge nerated this result tra nsmitted reference range : <=1.0. The reference r hugo was not used to int erpret this result as normal/abnormal . [facility] CenterJdybkxkCJZNHEPFJZ1938-96-73 08:03:00 Test Item Value Reference Range Interpretation Comments Neutrophils # (test code = Neutrophils 7.0 1.5-8.1 #) [facility] CenterNmazluwHFBLBOMPED4503-66-16 08:03:00 Test Item Value Reference Range Interpretation Comments Lymphocytes # (test code = Lymphocytes 0.3 1.0-5.5 #) [place] 778932-07-25 08:03:00 Test Item Value Reference Range Interpretation Comments Monocytes # (test code 0.1 See_Comment [Aut omated message] The = Monocytes #) system which generated this result tra nsmitted reference range : <=0.8. The reference r hugo was not used to int erpret this result as normal/abnormal . [facility]ieawexYLHGSUJQJM2711-89-98 08:03:00 Test Item Value Reference Range Interpretation Comments Microcyte (test code = 1+ *ABN*(06/13/22 Microcyte) 3:03 AM) [facility]villePrePayMe [id number] 08:03:00 Test Item Value Reference Range Interpretation Comments HS Troponin I 1 Hr (test code = HS 50 Troponin I 1 Hr) [facility]villePrePay[facility] [id number] 08:03:00 Test Item Value Reference Range Interpretation Comments HS Troponin I 0 to 1 See Note 5(06/13/22 Hour Delta (test code = 3:03 AM) HS Troponin I 0 to 1 Hour Delta) [facility] [id number] 08:03:00 Test Item Value Reference Range Interpretation Comments Glucose Lvl (test code = Glucose Lvl) 142 70-99 [facility] [id number] 08:03:00 Test Item Value Reference Range Interpretation Comments BUN (test code = BUN) 21 7-22 [facility] [id number] 08:03:00 Test Item Value Reference Range Interpretation Comments Creatinine Lvl (test code = Creatinine 0.84 0.50-1.40 Lvl) [facility] [id number] 08:03:00 Test Item Value Reference Range Interpretation Comments Sodium Lvl (test code = Sodium Lvl) 133 135-145 [facility] [id number] 08:03:00 Test Item Value Reference Range Interpretation Comments Potassium Lvl (test code = Potassium 4.4 3.5-5.1 Lvl) [facility] [id number] 08:03:00 Test Item Value Reference Range Interpretation Comments Chloride Lvl (test code = Chloride Lvl) 98 95-109 [facility] [id number] 08:03:00 Test Item Value Reference Range Interpretation Comments CO2 (test code = CO2) 25 24-32 [facility] [id number] 08:03:00 Test Item Value Reference Range Interpretation Comments AGAP (test code = AGAP) 14.4 10.0-20.0 [facility] [id number] 08:03:00 Test Item Value Reference Range Interpretation Comments Calcium Lvl (test code = Calcium Lvl) 9.1 8.5-10.5 [facility] [id number] 08:03:00 Test Item Value Reference Range Interpretation Comments B/C Ratio (test code = B/C Ratio) 25 1 6-25 [facility] [id number] 08:03:00 Test Item Value Reference Range Interpretation Comments Total Protein (test code = Total 6.7 6.4-8.4 Protein) [facility] [id number] 08:03:00 Test Item Value Reference Range Interpretation Comments Albumin Lvl (test code = Albumin Lvl) 3.2 3.5-5.0 [facility] [id number] 08:03:00 Test Item Value Reference Range Interpretation Comments Globulin (test code = Globulin) 3.5 2.7-4.2 [facility] [id number] 08:03:00 Test Item Value Reference Range Interpretation Comments A/G Ratio (test code = A/G Ratio) 0.9 1 0.7-1.6 [facility] [employer] [id number] 08:03:00 Test Item Value Reference Range Interpretation Comments ALT (test code = ALT) 19 See_Comment [Auto mated message] The system which ge nerated this result transmit lavon reference range : <=65. The reference range was not used to interpr et this result as dionne l/abnormal. [facility] [employer] [id number] 08:03:00 Test Item Value Reference Range Interpretation Comments AST (test code = AST) 26 See_Comment [Auto mated message] The system which ge nerated this result transmit lavon reference range : <=37. The reference range was not used to interpr et this result as dionne l/abnormal. [facility] [employer] [id number] 08:03:00 Test Item Value Reference Range Interpretation Comments Alk Phos (test code = Alk Phos) 56 39-136 [facility] [id number] 08:03:00 Test Item Value Reference Range Interpretation Comments Bili Total (test code = Bili Total) 1.0 0.2-1.3 [place] 852652-07-25 08:03:00 Test Item Value Reference Range Interpretation Comments eGFR (test code = eGFR) 67 [place] 852652-07-25 08:03:00 Test Item Value Reference Range Interpretation Comments Magnesium Lvl (test code = Magnesium 1.9 1.8-2.4 Lvl) [place] 852652-07-25 08:03:00 Test Item Value Reference Range Interpretation Comments Procalcitonin Lvl (test no gt See_Comment [Au tomated message] code = Procalcitonin Lvl) e system which generated this result transmitted ref erence range: <=0.10. The reference range was not used to interpr et this result as normal/abnormal . [place] 852652-07-25 08:03:00 Test Item Value Reference Range Interpretation Comments LDH (test code = LDH) 354 98-192 [place] 778932-07-25 08:03:00 Test Item Value Reference Range Interpretation Comments WBC (test code = WBC) 7.5 3.7-10.4 [place] 778932-07-25 08:03:00 Test Item Value Reference Range Interpretation Comments RBC (test code = RBC) 3.44 4.20-5.40 [place] [address]-07-25 08:03:00 Test Item Value Reference Range Interpretation Comments Hgb (test code = Hgb) 8.3 12.0-16.0 [place] [address]-07-25 08:03:00 Test Item Value Reference Range Interpretation Comments Hct (test code = Hct) 26.2 36.0-48.0 [place] [address]-07-25 08:03:00 Test Item Value Reference Range Interpretation Comments MCV (test code = MCV) 76.1 80.0-98.0 [place] [address]-07-25 08:03:00 Test Item Value Reference Range Interpretation Comments MCH (test code = MCH) 24.0 pg 27.0-31.0 [place] [address]-07-25 08:03:00 Test Item Value Reference Range Interpretation Comments MCHC (test code = MCHC) 31.6 32.0-36.0 [place] [address]-07-25 08:03:00 Test Item Value Reference Range Interpretation Comments RDW (test code = RDW) 20.9 11.5-14.5 [place] 778932-07-25 08:03:00 Test Item Value Reference Range Interpretation Comments Platelet (test code = Platelet) 289 133-450 [place] 778932-07-25 08:03:00 Test Item Value Reference Range Interpretation Comments MPV (test code = MPV) 7.5 7.4-10.4 [place] [address]-07-25 08:03:00 Test Item Value Reference Range Interpretation Comments Segs (test code = Segs) 94.0 45.0-75.0 [place] 778932-07-25 08:03:00 Test Item Value Reference Range Interpretation Comments Lymphocytes (test code = Lymphocytes) 4.3 20.0-40.0 [place] [address]-07-25 08:03:00 Test Item Value Reference Range Interpretation Comments Monocytes (test code = Monocytes) 1.6 2.0-12.0 [place] [address]-07-25 08:03:00 Test Item Value Reference Range Interpretation Comments Basophils (test code = 0.1 See_Comment [Aut omated message] The Basophils) system which ge nerated this result tra nsmitted reference range : <=1.0. The reference r hugo was not used to int erpret this result as normal/abnormal . [place] 778932-07-25 08:03:00 Test Item Value Reference Range Interpretation Comments Neutrophils # (test code = Neutrophils 7.0 1.5-8.1 #) [place] 778932-07-25 08:03:00 Test Item Value Reference Range Interpretation Comments Lymphocytes # (test code = Lymphocytes 0.3 1.0-5.5 #) [place] [address]-07-25 08:03:00 Test Item Value Reference Range Interpretation Comments Monocytes # (test code 0.1 See_Comment [Aut omated message] The = Monocytes #) system which generated this result tra nsmitted reference range : <=0.8. The reference r hugo was not used to int erpret this result as normal/abnormal . [place] [address]-07-25 08:03:00 Test Item Value Reference Range Interpretation Comments Microcyte (test code = 1+ *ABN*(06/13/22 Microcyte) 3:03 AM) [facility] [employer] [id number] 08:03:00 Test Item Value Reference Range Interpretation Comments HS Troponin I 1 Hr (test code = HS 50 Troponin I 1 Hr) [facility]GetIntentAC [id number] 08:03:00 Test Item Value Reference Range Interpretation Comments HS Troponin I 0 to 1 See Note 5(06/13/22 Hour Delta (test code = 3:03 AM) HS Troponin I 0 to 1 Hour Delta) [facility] [employer] [id number] 08:03:00 Test Item Value Reference Range Interpretation Comments Glucose Lvl (test code = Glucose Lvl) 142 70-99 [facility] [employer] [id number] 08:03:00 Test Item Value Reference Range Interpretation Comments BUN (test code = BUN) 21 06-10 [facility] [employer] [id number] 08:03:00 Test Item Value Reference Range Interpretation Comments Creatinine Lvl (test code = Creatinine 0.84 0.50-1.40 Lvl) [facility] [employer] [id number] 08:03:00 Test Item Value Reference Range Interpretation Comments Sodium Lvl (test code = Sodium Lvl) 133 135-145 [facility] [employer] [id number] 08:03:00 Test Item Value Reference Range Interpretation Comments Potassium Lvl (test code = Potassium 4.4 3.5-5.1 Lvl) [facility] [employer] [id number] 08:03:00 Test Item Value Reference Range Interpretation Comments Chloride Lvl (test code = Chloride Lvl) 98 95-109 [facility] [employer] [id number] 08:03:00 Test Item Value Reference Range Interpretation Comments CO2 (test code = CO2) 25 24-32 [facility] [employer] [id number] 08:03:00 Test Item Value Reference Range Interpretation Comments AGAP (test code = AGAP) 14.4 10.0-20.0 [facility] [employer] [id number] 08:03:00 Test Item Value Reference Range Interpretation Comments Calcium Lvl (test code = Calcium Lvl) 9.1 8.5-10.5 [facility] [employer] [id number] 08:03:00 Test Item Value Reference Range Interpretation Comments B/C Ratio (test code = B/C Ratio) 25 1 6-25 [facility] [id number] 08:03:00 Test Item Value Reference Range Interpretation Comments Total Protein (test code = Total 6.7 6.4-8.4 Protein) [facility] [id number] 08:03:00 Test Item Value Reference Range Interpretation Comments Albumin Lvl (test code = Albumin Lvl) 3.2 3.5-5.0 [facility] [id number] 08:03:00 Test Item Value Reference Range Interpretation Comments Globulin (test code = Globulin) 3.5 2.7-4.2 [facility] [id number] 08:03:00 Test Item Value Reference Range Interpretation Comments A/G Ratio (test code = A/G Ratio) 0.9 1 0.7-1.6 [facility] [id number] 08:03:00 Test Item Value Reference Range Interpretation Comments ALT (test code = ALT) 19 See_Comment [Auto mated message] The system which ge nerated this result transmit lavon reference range : <=65. The reference range was not used to interpr et this result as dionne l/abnormal. [facility] [employer] [id number] 08:03:00 Test Item Value Reference Range Interpretation Comments AST (test code = AST) 26 See_Comment [Auto mated message] The system which ge nerated this result transmit lavon reference range : <=37. The reference range was not used to interpr et this result as dionne l/abnormal. [facility] [employer] [id number] 08:03:00 Test Item Value Reference Range Interpretation Comments Alk Phos (test code = Alk Phos) 56 39-136 [facility] [employer] [id number] 08:03:00 Test Item Value Reference Range Interpretation Comments Bili Total (test code = Bili Total) 1.0 0.2-1.3 [facility] [employer] [id number] 08:03:00 Test Item Value Reference Range Interpretation Comments eGFR (test code = eGFR) 67 [facility] [id number] 08:03:00 Test Item Value Reference Range Interpretation Comments Magnesium Lvl (test code = Magnesium 1.9 1.8-2.4 Lvl) [facility] [id number] 08:03:00 Test Item Value Reference Range Interpretation Comments Procalcitonin Lvl (test no gt See_Comment [Au tomated message] code = Procalcitonin Lvl) Th e system which generated this result transmitted ref erence range: <=0.10. The reference range was not used to interpr et this result as normal/abnormal . [facility]2022-07-25 08:03:00 Test Item Value Reference Range Interpretation Comments LDH (test code = LDH) 354 98-192 [facility] CenterIukjxwmZDPHSHLRAV1637-88-71 08:03:00 Test Item Value Reference Range Interpretation Comments WBC (test code = WBC) 7.5 3.7-10.4 [facility]YexhvujWADCMGEZPM2137-31-08 08:03:00 Test Item Value Reference Range Interpretation Comments RBC (test code = RBC) 3.44 4.20-5.40 [facility] CenterJriejyrTBNKPIDVZI1401-41-55 08:03:00 Test Item Value Reference Range Interpretation Comments Hgb (test code = Hgb) 8.3 12.0-16.0 [facility] CenterXwgcjvkLTPIKWLOAB4284-77-70 08:03:00 Test Item Value Reference Range Interpretation Comments Hct (test code = Hct) 26.2 36.0-48.0 [facility] CenterQzilpbiJDVSJSZDSA0415-30-66 08:03:00 Test Item Value Reference Range Interpretation Comments MCV (test code = MCV) 76.1 80.0-98.0 [facility] CenterNinptbkINCESFBWME1752-40-82 08:03:00 Test Item Value Reference Range Interpretation Comments MCH (test code = MCH) 24.0 pg 27.0-31.0 [facility] CenterQywadeiCGTIOVNYGW4886-40-34 08:03:00 Test Item Value Reference Range Interpretation Comments MCHC (test code = MCHC) 31.6 32.0-36.0 [facility] CenterUdlmqrzXPNHJJPSLQ3158-60-30 08:03:00 Test Item Value Reference Range Interpretation Comments RDW (test code = RDW) 20.9 11.5-14.5 [facility] CenterUuzzgvzBEKMXUYNFT3582-25-44 08:03:00 Test Item Value Reference Range Interpretation Comments Platelet (test code = Platelet) 289 133-450 [facility] CenterVgseddeNCEAZHXZZP3331-79-23 08:03:00 Test Item Value Reference Range Interpretation Comments MPV (test code = MPV) 7.5 7.4-10.4 [facility]QjmopcvQYVQXNRMHQ3302-82-91 08:03:00 Test Item Value Reference Range Interpretation Comments Segs (test code = Segs) 94.0 45.0-75.0 [facility] CenterIzxawjaXMQQKZMNTZ8201-81-60 08:03:00 Test Item Value Reference Range Interpretation Comments Lymphocytes (test code = Lymphocytes) 4.3 20.0-40.0 [facility]villeUmvekczQDMMBIGGCX4092-24-25 08:03:00 Test Item Value Reference Range Interpretation Comments Monocytes (test code = Monocytes) 1.6 2.0-12.0 [facility] GreenvilleIixyjxdPEICTYLDLQ7358-83-86 08:03:00 Test Item Value Reference Range Interpretation Comments Basophils (test code = 0.1 See_Comment [Aut omated message] The Basophils) system which ge nerated this result tra nsmitted reference range : <=1.0. The reference r hugo was not used to int erpret this result as normal/abnormal . [facility] GreenvilleUzvixmbEWXQOBJYMN2583-72-76 08:03:00 Test Item Value Reference Range Interpretation Comments Neutrophils # (test code = Neutrophils 7.0 1.5-8.1 #) [facility]LUYG3876-50-37 08:03:00 Test Item Value Reference Range Interpretation Comments Lymphocytes # (test code = Lymphocytes 0.3 1.0-5.5 #) [facility] CenterMhzuonrEUUYXTQJFR6103-01-93 08:03:00 Test Item Value Reference Range Interpretation Comments Monocytes # (test code 0.1 See_Comment [Aut omated message] The = Monocytes #) system which generated this result tra nsmitted reference range : <=0.8. The reference r hugo was not used to int erpret this result as normal/abnormal . [facility] TexasIvlicvsQICXRXVJJR2107-77-55 08:03:00 Test Item Value Reference Range Interpretation Comments Microcyte (test code = 1+ *ABN*(06/13/22 Microcyte) 3:03 AM) [facility] GreenvillePocketMobileKOPIGCG3812-44-08 08:03:00 Test Item Value Reference Range Interpretation Comments HS Troponin I 1 Hr (test code = HS 50 Troponin I 1 Hr) [facility] GreenvillePrePayMe LUAAUWA0572-74-88 08:03:00 Test Item Value Reference Range Interpretation Comments HS Troponin I 0 to 1 See Note 5(06/13/22 Hour Delta (test code = 3:03 AM) HS Troponin I 0 to 1 Hour Delta) [place] 852652-07-25 08:03:00 Test Item Value Reference Range Interpretation Comments Glucose Lvl (test code = Glucose Lvl) 142 70-99 [place] 852652-07-25 08:03:00 Test Item Value Reference Range Interpretation Comments BUN (test code = BUN) 21 06-10 [place] 852652-07-25 08:03:00 Test Item Value Reference Range Interpretation Comments Creatinine Lvl (test code = Creatinine 0.84 0.50-1.40 Lvl) [place] 852652-07-25 08:03:00 Test Item Value Reference Range Interpretation Comments Sodium Lvl (test code = Sodium Lvl) 133 135-145 [place] 852652-07-25 08:03:00 Test Item Value Reference Range Interpretation Comments Potassium Lvl (test code = Potassium 4.4 3.5-5.1 Lvl) [facility]2022-07-25 08:03:00 Test Item Value Reference Range Interpretation Comments Chloride Lvl (test code = Chloride Lvl) 98 95-109 [facility]2022-07-25 08:03:00 Test Item Value Reference Range Interpretation Comments CO2 (test code = CO2) 25 24-32 [place] 852652-07-25 08:03:00 Test Item Value Reference Range Interpretation Comments AGAP (test code = AGAP) 14.4 10.0-20.0 [place] 852652-07-25 08:03:00 Test Item Value Reference Range Interpretation Comments Calcium Lvl (test code = Calcium Lvl) 9.1 8.5-10.5 [place] 852652-07-25 08:03:00 Test Item Value Reference Range Interpretation Comments B/C Ratio (test code = B/C Ratio) 25 1 6-25 [place] 852652-07-25 08:03:00 Test Item Value Reference Range Interpretation Comments Total Protein (test code = Total 6.7 6.4-8.4 Protein) [place] 852652-07-25 08:03:00 Test Item Value Reference Range Interpretation Comments Albumin Lvl (test code = Albumin Lvl) 3.2 3.5-5.0 [place] [address]-07-25 08:03:00 Test Item Value Reference Range Interpretation Comments Globulin (test code = Globulin) 3.5 2.7-4.2 [place] [address]-07-25 08:03:00 Test Item Value Reference Range Interpretation Comments A/G Ratio (test code = A/G Ratio) 0.9 1 0.7-1.6 [place] [address]-07-25 08:03:00 Test Item Value Reference Range Interpretation Comments ALT (test code = ALT) 19 See_Comment [Auto mated message] The system which ge nerated this result transmit lavon reference range : <=65. The reference range was not used to interpr et this result as dionne l/abnormal. [address]07-25 08:03:00 Test Item Value Reference Range Interpretation Comments AST (test code = AST) 26 See_Comment [Auto mated message] The system which ge nerated this result transmit lavon reference range : <=37. The reference range was not used to interpr et this result as dionne l/abnormal. [place] 852652-07-25 08:03:00 Test Item Value Reference Range Interpretation Comments Alk Phos (test code = Alk Phos) 56 39-136 [place] [address]-07-25 08:03:00 Test Item Value Reference Range Interpretation Comments Bili Total (test code = Bili Total) 1.0 0.2-1.3 [place] [address]-07-25 08:03:00 Test Item Value Reference Range Interpretation Comments eGFR (test code = eGFR) 67 [place] [address]-07-25 08:03:00 Test Item Value Reference Range Interpretation Comments Magnesium Lvl (test code = Magnesium 1.9 1.8-2.4 Lvl) [address]07-25 08:03:00 Test Item Value Reference Range Interpretation Comments Procalcitonin Lvl (test no gt See_Comment [Au tomated message] code = Procalcitonin Lvl) Th e system which generated this result transmitted ref erence range: <=0.10. The reference range was not used to interpr et this result as normal/abnormal . [facility]2022-07-25 08:03:00 Test Item Value Reference Range Interpretation Comments LDH (test code = LDH) 354 98-192 [facility] CenterNizkxbyPRWWATXIDE6234-37-26 08:03:00 Test Item Value Reference Range Interpretation Comments WBC (test code = WBC) 7.5 3.7-10.4 [facility] CenterEkvjrkpIVRKBVBZDK1749-35-07 08:03:00 Test Item Value Reference Range Interpretation Comments RBC (test code = RBC) 3.44 4.20-5.40 [facility] CenterFwrfpayJACGFHUCBO7165-15-49 08:03:00 Test Item Value Reference Range Interpretation Comments Hgb (test code = Hgb) 8.3 12.0-16.0 [place] 778932-07-25 08:03:00 Test Item Value Reference Range Interpretation Comments Hct (test code = Hct) 26.2 36.0-48.0 [facility] CenterJkcueujTBIQXPUXAQ2947-92-37 08:03:00 Test Item Value Reference Range Interpretation Comments MCV (test code = MCV) 76.1 80.0-98.0 [facility] CenterFyftyujWPQCFOGPFW8249-51-43 08:03:00 Test Item Value Reference Range Interpretation Comments MCH (test code = MCH) 24.0 pg 27.0-31.0 [facility] CenterCjmrkgvQBHMMSUZCK3297-13-84 08:03:00 Test Item Value Reference Range Interpretation Comments MCHC (test code = MCHC) 31.6 32.0-36.0 [facility] CenterUhehyslRRAGRDPIZG8331-97-58 08:03:00 Test Item Value Reference Range Interpretation Comments RDW (test code = RDW) 20.9 11.5-14.5 [facility] CenterJiexkflLGCHFBRRVO6816-56-09 08:03:00 Test Item Value Reference Range Interpretation Comments Platelet (test code = Platelet) 289 133-450 [facility] CenterMbsqtaaIVGMABBNGB7395-74-79 08:03:00 Test Item Value Reference Range Interpretation Comments MPV (test code = MPV) 7.5 7.4-10.4 [place] 778932-07-25 08:03:00 Test Item Value Reference Range Interpretation Comments Segs (test code = Segs) 94.0 45.0-75.0 [place] 778932-07-25 08:03:00 Test Item Value Reference Range Interpretation Comments Lymphocytes (test code = Lymphocytes) 4.3 20.0-40.0 [facility] TexasNntwjgaWSIHRCPDTX5093-88-47 08:03:00 Test Item Value Reference Range Interpretation Comments Monocytes (test code = Monocytes) 1.6 2.0-12.0 [facility] CenterFemcpgpZYQKFRLBYR2030-99-45 08:03:00 Test Item Value Reference Range Interpretation Comments Basophils (test code = 0.1 See_Comment [Aut omated message] The Basophils) system which ge nerated this result tra nsmitted reference range : <=1.0. The reference r hugo was not used to int erpret this result as normal/abnormal . [facility] GreenvilleVsidouoSUIZEXWZCT1711-08-36 08:03:00 Test Item Value Reference Range Interpretation Comments Neutrophils # (test code = Neutrophils 7.0 1.5-8.1 #) [facility] CenterKiqwojrPTRXRMWTBH2537-11-41 08:03:00 Test Item Value Reference Range Interpretation Comments Lymphocytes # (test code = Lymphocytes 0.3 1.0-5.5 #) [facility] GreenvilleUucfwlrUJHPYDAAUL1014-66-98 08:03:00 Test Item Value Reference Range Interpretation Comments Monocytes # (test code 0.1 See_Comment [Aut omated message] The = Monocytes #) system which generated this result tra nsmitted reference range : <=0.8. The reference r hugo was not used to int erpret this result as normal/abnormal . [facility] TexasCijyyxtFODIOFFKSC8997-88-90 08:03:00 Test Item Value Reference Range Interpretation Comments Microcyte (test code = 1+ *ABN*(06/13/22 Microcyte) 3:03 AM) [facility]A [employer]2022-07-25 08:03:00 Test Item Value Reference Range Interpretation Comments HS Troponin I 1 Hr (test code = HS 50 Troponin I 1 Hr) [facility] [employer]2022-07-25 08:03:00 Test Item Value Reference Range Interpretation Comments HS Troponin I 0 to 1 See Note 5(06/13/22 Hour Delta (test code = 3:03 AM) HS Troponin I 0 to 1 Hour Delta) [facility] [employer]2022-07-25 08:03:00 Test Item Value Reference Range Interpretation Comments Glucose Lvl (test code = Glucose Lvl) 142 70-99 [place] 852652-07-25 08:03:00 Test Item Value Reference Range Interpretation Comments BUN (test code = BUN) 21 7-22 [place] 852652-07-25 08:03:00 Test Item Value Reference Range Interpretation Comments Creatinine Lvl (test code = Creatinine 0.84 0.50-1.40 Lvl) [facility]2022-07-25 08:03:00 Test Item Value Reference Range Interpretation Comments Sodium Lvl (test code = Sodium Lvl) 133 135-145 [place] 852652-07-25 08:03:00 Test Item Value Reference Range Interpretation Comments Potassium Lvl (test code = Potassium 4.4 3.5-5.1 Lvl) [facility] TexasMelodigramNOV[facility]OW[facility] MEDICAL CENTERHCJSX8102-81-81 08:03:00 Test Item Value Reference Range Interpretation Comments Chloride Lvl (test code = Chloride Lvl) 98 95-109 [facility]2022-07-25 08:03:00 Test Item Value Reference Range Interpretation Comments CO2 (test code = CO2) 24-32 [place] 852652-07-25 08:03:00 Test Item Value Reference Range Interpretation Comments AGAP (test code = AGAP) 14.4 10.0-20.0 [facility]2022-07-25 08:03:00 Test Item Value Reference Range Interpretation Comments Calcium Lvl (test code = Calcium Lvl) 9.1 8.5-10.5 [facility]2022-07-25 08:03:00 Test Item Value Reference Range Interpretation Comments B/C Ratio (test code = B/C Ratio) 25 1 6-25 [place] 852652-07-25 08:03:00 Test Item Value Reference Range Interpretation Comments Total Protein (test code = Total 6.7 6.4-8.4 Protein) [place] 852652-07-25 08:03:00 Test Item Value Reference Range Interpretation Comments Albumin Lvl (test code = Albumin Lvl) 3.2 3.5-5.0 [place] 852652-07-25 08:03:00 Test Item Value Reference Range Interpretation Comments Globulin (test code = Globulin) 3.5 2.7-4.2 [place] 852652-07-25 08:03:00 Test Item Value Reference Range Interpretation Comments A/G Ratio (test code = A/G Ratio) 0.9 1 0.7-1.6 [facility] [employer] [id number] 08:03:00 Test Item Value Reference Range Interpretation Comments ALT (test code = ALT) 19 See_Comment [Auto mated message] The system which ge nerated this result transmit lavon reference range : <=65. The reference range was not used to interpr et this result as dionne l/abnormal. [facility] [employer] [id number] 08:03:00 Test Item Value Reference Range Interpretation Comments AST (test code = AST) 26 See_Comment [Auto mated message] The system which ge nerated this result transmit lavon reference range : <=37. The reference range was not used to interpr et this result as dionne l/abnormal. [facility] BYOIK7579-78-05 08:03:00 Test Item Value Reference Range Interpretation Comments Alk Phos (test code = Alk Phos) 56 39-136 [facility] EMKOI5811-03-90 08:03:00 Test Item Value Reference Range Interpretation Comments Bili Total (test code = Bili Total) 1.0 0.2-1.3 [facility] EPEIF1986-17-31 08:03:00 Test Item Value Reference Range Interpretation Comments eGFR (test code = eGFR) 67 [facility] KXQDI3836-13-28 08:03:00 Test Item Value Reference Range Interpretation Comments Magnesium Lvl (test code = Magnesium 1.9 1.8-2.4 Lvl) [facility] [id number] 08:03:00 Test Item Value Reference Range Interpretation Comments Procalcitonin Lvl (test no gt See_Comment [Au tomated message] code = Procalcitonin Lvl) Th e system which generated this result transmitted ref erence range: <=0.10. The reference range was not used to interpr et this result as normal/abnormal . [facility] [employer] [id number] 08:03:00 Test Item Value Reference Range Interpretation Comments LDH (test code = LDH) 354 98-192 [facility] GreenvilleCuniqovZANLEPCUVZ3474-65-16 08:03:00 Test Item Value Reference Range Interpretation Comments WBC (test code = WBC) 7.5 3.7-10.4 [place] 778932-07-25 08:03:00 Test Item Value Reference Range Interpretation Comments RBC (test code = RBC) 3.44 4.20-5.40 [place] 778932-07-25 08:03:00 Test Item Value Reference Range Interpretation Comments Hgb (test code = Hgb) 8.3 12.0-16.0 [place] 778932-07-25 08:03:00 Test Item Value Reference Range Interpretation Comments Hct (test code = Hct) 26.2 36.0-48.0 [facility] CenterHcnbhabPSHITJTPWR2075-39-67 08:03:00 Test Item Value Reference Range Interpretation Comments MCV (test code = MCV) 76.1 80.0-98.0 [place] 778932-07-25 08:03:00 Test Item Value Reference Range Interpretation Comments MCH (test code = MCH) 24.0 pg 27.0-31.0 [place] 778932-07-25 08:03:00 Test Item Value Reference Range Interpretation Comments MCHC (test code = MCHC) 31.6 32.0-36.0 [facility] CenterEvljzfeWSKKOEIOEY2319-40-80 08:03:00 Test Item Value Reference Range Interpretation Comments RDW (test code = RDW) 20.9 11.5-14.5 [place] 778932-07-25 08:03:00 Test Item Value Reference Range Interpretation Comments Platelet (test code = Platelet) 289 133-450 [facility] CenterXkulpasBMMVGFSIZF2696-63-63 08:03:00 Test Item Value Reference Range Interpretation Comments MPV (test code = MPV) 7.5 7.4-10.4 [place] 778932-07-25 08:03:00 Test Item Value Reference Range Interpretation Comments Segs (test code = Segs) 94.0 45.0-75.0 [place] 778932-07-25 08:03:00 Test Item Value Reference Range Interpretation Comments Lymphocytes (test code = Lymphocytes) 4.3 20.0-40.0 [place] 778932-07-25 08:03:00 Test Item Value Reference Range Interpretation Comments Monocytes (test code = Monocytes) 1.6 2.0-12.0 [place] 778932-07-25 08:03:00 Test Item Value Reference Range Interpretation Comments Basophils (test code = 0.1 See_Comment [Aut omated message] The Basophils) system which ge nerated this result tra nsmitted reference range : <=1.0. The reference r hugo was not used to int erpret this result as normal/abnormal . [facility] RsbiyngXTDIMTFWHU3558-09-01 08:03:00 Test Item Value Reference Range Interpretation Comments Neutrophils # (test code = Neutrophils 7.0 1.5-8.1 #) [facility] TexasSjmpyfeDNYVENRQTV4927-90-73 08:03:00 Test Item Value Reference Range Interpretation Comments Lymphocytes # (test code = Lymphocytes 0.3 1.0-5.5 #) [facility] TexasJjbgzrwTOQWQJOGYH8718-90-73 08:03:00 Test Item Value Reference Range Interpretation Comments Monocytes # (test code 0.1 See_Comment [Aut omated message] The = Monocytes #) system which generated this result tra nsmitted reference range : <=0.8. The reference r hugo was not used to int erpret this result as normal/abnormal . [facility] RgpxscxMHTIBCYAQY4443-10-84 08:03:00 Test Item Value Reference Range Interpretation Comments Microcyte (test code = 1+ *ABN*(06/13/22 Microcyte) 3:03 AM) [facility] [employer]2022-07-25 08:03:00 Test Item Value Reference Range Interpretation Comments HS Troponin I 1 Hr (test code = HS 50 Troponin I 1 Hr) [facility] [employer]2022-07-25 08:03:00 Test Item Value Reference Range Interpretation Comments HS Troponin I 0 to 1 See Note 5(06/13/22 Hour Delta (test code = 3:03 AM) HS Troponin I 0 to 1 Hour Delta) [facility] [employer] Fun2-07-25 08:03:00 Test Item Value Reference Range Interpretation Comments Glucose Lvl (test code = Glucose Lvl) 142 70-99 [facility] [employer]2022-07-25 08:03:00 Test Item Value Reference Range Interpretation Comments BUN (test code = BUN) 21 06-10 [facility] [employer] [id number] 08:03:00 Test Item Value Reference Range Interpretation Comments Creatinine Lvl (test code = Creatinine 0.84 0.50-1.40 Lvl) [facility]Hay[facility] CenterTCEYY1360-57-18 08:03:00 Test Item Value Reference Range Interpretation Comments Sodium Lvl (test code = Sodium Lvl) 133 135-145 [place] 852652-07-25 08:03:00 Test Item Value Reference Range Interpretation Comments Potassium Lvl (test code = Potassium 4.4 3.5-5.1 Lvl) [facility]2022-07-25 08:03:00 Test Item Value Reference Range Interpretation Comments Chloride Lvl (test code = Chloride Lvl) 98 95-109 [place] 852652-07-25 08:03:00 Test Item Value Reference Range Interpretation Comments CO2 (test code = CO2) 25 24-32 [place] 852652-07-25 08:03:00 Test Item Value Reference Range Interpretation Comments AGAP (test code = AGAP) 14.4 10.0-20.0 [place] 852652-07-25 08:03:00 Test Item Value Reference Range Interpretation Comments Calcium Lvl (test code = Calcium Lvl) 9.1 8.5-10.5 [place] 852652-07-25 08:03:00 Test Item Value Reference Range Interpretation Comments B/C Ratio (test code = B/C Ratio) 25 1 6-25 [place] 852652-07-25 08:03:00 Test Item Value Reference Range Interpretation Comments Total Protein (test code = Total 6.7 6.4-8.4 Protein) [place] 852652-07-25 08:03:00 Test Item Value Reference Range Interpretation Comments Albumin Lvl (test code = Albumin Lvl) 3.2 3.5-5.0 [place] 852652-07-25 08:03:00 Test Item Value Reference Range Interpretation Comments Globulin (test code = Globulin) 3.5 2.7-4.2 [place] 852652-07-25 08:03:00 Test Item Value Reference Range Interpretation Comments A/G Ratio (test code = A/G Ratio) 0.9 1 0.7-1.6 [place] 852652-07-25 08:03:00 Test Item Value Reference Range Interpretation Comments ALT (test code = ALT) 19 See_Comment [Auto mated message] The system which ge nerated this result transmit lavon reference range : <=65. The reference range was not used to interpr et this result as dionne l/abnormal. [facility] [id number] 08:03:00 Test Item Value Reference Range Interpretation Comments AST (test code = AST) 26 See_Comment [Auto mated message] The system which ge nerated this result transmit lavon reference range : <=37. The reference range was not used to interpr et this result as dionne l/abnormal. [facility] [id number] 08:03:00 Test Item Value Reference Range Interpretation Comments Alk Phos (test code = Alk Phos) 56 39-136 [facility] [id number] 08:03:00 Test Item Value Reference Range Interpretation Comments Bili Total (test code = Bili Total) 1.0 0.2-1.3 [facility] YHEBA0624-59-10 08:03:00 Test Item Value Reference Range Interpretation Comments eGFR (test code = eGFR) 67 [facility] [id number] 08:03:00 Test Item Value Reference Range Interpretation Comments Magnesium Lvl (test code = Magnesium 1.9 1.8-2.4 Lvl) [facility] FGDHV0951-12-10 08:03:00 Test Item Value Reference Range Interpretation Comments Procalcitonin Lvl (test no gt See_Comment [Au tomated message] code = Procalcitonin Lvl) Th e system which generated this result transmitted ref erence range: <=0.10. The reference range was not used to interpr et this result as normal/abnormal . [facility] VRJEJ0294-08-05 08:03:00 Test Item Value Reference Range Interpretation Comments LDH (test code = LDH) 354 98-192 [facility] GreenvilleAfxhftnOYWSZFBWSO1402-49-97 08:03:00 Test Item Value Reference Range Interpretation Comments WBC (test code = WBC) 7.5 3.7-10.4 [place] [address]-07-25 08:03:00 Test Item Value Reference Range Interpretation Comments RBC (test code = RBC) 3.44 4.20-5.40 [facility] GreenvilleXpewzbbCMSZLHAYDB9040-99-92 08:03:00 Test Item Value Reference Range Interpretation Comments Hgb (test code = Hgb) 8.3 12.0-16.0 [place] 778932-07-25 08:03:00 Test Item Value Reference Range Interpretation Comments Hct (test code = Hct) 26.2 36.0-48.0 [place] 778932-07-25 08:03:00 Test Item Value Reference Range Interpretation Comments MCV (test code = MCV) 76.1 80.0-98.0 [place] 778932-07-25 08:03:00 Test Item Value Reference Range Interpretation Comments MCH (test code = MCH) 24.0 pg 27.0-31.0 [place] 778932-07-25 08:03:00 Test Item Value Reference Range Interpretation Comments MCHC (test code = MCHC) 31.6 32.0-36.0 [facility]XiynthnQNBYOKQTQA0764-02-10 08:03:00 Test Item Value Reference Range Interpretation Comments RDW (test code = RDW) 20.9 11.5-14.5 [place] 778932-07-25 08:03:00 Test Item Value Reference Range Interpretation Comments Platelet (test code = Platelet) 289 133-450 [facility] CenterMurbftoYJYRLACNZT9775-71-91 08:03:00 Test Item Value Reference Range Interpretation Comments MPV (test code = MPV) 7.5 7.4-10.4 [place] 778932-07-25 08:03:00 Test Item Value Reference Range Interpretation Comments Segs (test code = Segs) 94.0 45.0-75.0 [facility]udCHDKCXIQUW0695[facility]16-45 08:03:00 Test Item Value Reference Range Interpretation Comments Lymphocytes (test code = Lymphocytes) 4.3 20.0-40.0 [place] 778932-07-25 08:03:00 Test Item Value Reference Range Interpretation Comments Monocytes (test code = Monocytes) 1.6 2.0-12.0 [place] [address]-07-25 08:03:00 Test Item Value Reference Range Interpretation Comments Basophils (test code = 0.1 See_Comment [Aut omated message] The Basophils) system which ge nerated this result tra nsmitted reference range : <=1.0. The reference r hugo was not used to int erpret this result as normal/abnormal . [place] 778932-07-25 08:03:00 Test Item Value Reference Range Interpretation Comments Neutrophils # (test code = Neutrophils 7.0 1.5-8.1 #) [facility]LdesxwrRFIPVJMEQO0640-45-33 08:03:00 Test Item Value Reference Range Interpretation Comments Lymphocytes # (test code = Lymphocytes 0.3 1.0-5.5 #) [facility] CenterYkqagnqVFIIJLNRJC4819-43-17 08:03:00 Test Item Value Reference Range Interpretation Comments Monocytes # (test code 0.1 See_Comment [Aut omated message] The = Monocytes #) system which generated this result tra nsmitted reference range : <=0.8. The reference r hugo was not used to int erpret this result as normal/abnormal . [facility]villeUxyyxwjWXLKOBSYUD3595-57-74 08:03:00 Test Item Value Reference Range Interpretation Comments Microcyte (test code = 1+ *ABN*(06/13/22 Microcyte) 3:03 AM) [facility] [id number] 08:03:00 Test Item Value Reference Range Interpretation Comments HS Troponin I 1 Hr (test code = HS 50 Troponin I 1 Hr) [facility] [id number] 08:03:00 Test Item Value Reference Range Interpretation Comments HS Troponin I 0 to 1 See Note 5(06/13/22 Hour Delta (test code = 3:03 AM) HS Troponin I 0 to 1 Hour Delta) [facility] [id number] 08:03:00 Test Item Value Reference Range Interpretation Comments Glucose Lvl (test code = Glucose Lvl) 142 70-99 [facility] [id number] 08:03:00 Test Item Value Reference Range Interpretation Comments BUN (test code = BUN) 21 06-10 [facility] TexasFre[facility] Scientific Holdings, [id number] 08:03:00 Test Item Value Reference Range Interpretation Comments Creatinine Lvl (test code = Creatinine 0.84 0.50-1.40 Lvl) [facility]Fre[facility] Holdings, [id number] 08:03:00 Test Item Value Reference Range Interpretation Comments Sodium Lvl (test code = Sodium Lvl) 133 135-145 [facility] [id number] 08:03:00 Test Item Value Reference Range Interpretation Comments Potassium Lvl (test code = Potassium 4.4 3.5-5.1 Lvl) [facility] [place] 916362-07-25 08:03:00 Test Item Value Reference Range Interpretation Comments Chloride Lvl (test code = Chloride Lvl) 98 95-109 [place] 852652-07-25 08:03:00 Test Item Value Reference Range Interpretation Comments CO2 (test code = CO2) 25 24-32 [place] [address]-07-25 08:03:00 Test Item Value Reference Range Interpretation Comments AGAP (test code = AGAP) 14.4 10.0-20.0 [place] [address]-07-25 08:03:00 Test Item Value Reference Range Interpretation Comments Calcium Lvl (test code = Calcium Lvl) 9.1 8.5-10.5 [place] [address]-07-25 08:03:00 Test Item Value Reference Range Interpretation Comments B/C Ratio (test code = B/C Ratio) 25 1 6-25 [place] [address]-07-25 08:03:00 Test Item Value Reference Range Interpretation Comments Total Protein (test code = Total 6.7 6.4-8.4 Protein) [place] 852652-07-25 08:03:00 Test Item Value Reference Range Interpretation Comments Albumin Lvl (test code = Albumin Lvl) 3.2 3.5-5.0 [place] [address]-07-25 08:03:00 Test Item Value Reference Range Interpretation Comments Globulin (test code = Globulin) 3.5 2.7-4.2 [place] [address]-07-25 08:03:00 Test Item Value Reference Range Interpretation Comments A/G Ratio (test code = A/G Ratio) 0.9 1 0.7-1.6 [place] [address]-07-25 08:03:00 Test Item Value Reference Range Interpretation Comments ALT (test code = ALT) 19 See_Comment [Auto mated message] The system which ge nerated this result transmit lavon reference range : <=65. The reference range was not used to interpr et this result as dionne l/abnormal. [place] [address]-07-25 08:03:00 Test Item Value Reference Range Interpretation Comments AST (test code = AST) 26 See_Comment [Auto mated message] The system which ge nerated this result transmit lavon reference range : <=37. The reference range was not used to interpr et this result as dionne l/abnormal. [facility] [id number] 08:03:00 Test Item Value Reference Range Interpretation Comments Alk Phos (test code = Alk Phos) 56 39-136 [place] 852652-07-25 08:03:00 Test Item Value Reference Range Interpretation Comments Bili Total (test code = Bili Total) 1.0 0.2-1.3 [place] 852652-07-25 08:03:00 Test Item Value Reference Range Interpretation Comments eGFR (test code = eGFR) 67 [place] 852652-07-25 08:03:00 Test Item Value Reference Range Interpretation Comments Magnesium Lvl (test code = Magnesium 1.9 1.8-2.4 Lvl) [place] 852652-07-25 08:03:00 Test Item Value Reference Range Interpretation Comments Procalcitonin Lvl (test no gt See_Comment [Au tomated message] code = Procalcitonin Lvl) e system which generated this result transmitted ref erence range: <=0.10. The reference range was not used to interpr et this result as normal/abnormal . [facility] [id number] 08:03:00 Test Item Value Reference Range Interpretation Comments LDH (test code = LDH) 354 98-192 [facility] CenterGfnuntnUHDTBHHPOY4375-05-83 08:03:00 Test Item Value Reference Range Interpretation Comments WBC (test code = WBC) 7.5 3.7-10.4 [place] 778932-07-25 08:03:00 Test Item Value Reference Range Interpretation Comments RBC (test code = RBC) 3.44 4.20-5.40 [facility] GreenvilleYoxttpvFSFQKWDDQL1429-51-52 08:03:00 Test Item Value Reference Range Interpretation Comments Hgb (test code = Hgb) 8.3 12.0-16.0 [place] [address]-07-25 08:03:00 Test Item Value Reference Range Interpretation Comments Hct (test code = Hct) 26.2 36.0-48.0 [place] [address]-07-25 08:03:00 Test Item Value Reference Range Interpretation Comments MCV (test code = MCV) 76.1 80.0-98.0 [address]07-25 08:03:00 Test Item Value Reference Range Interpretation Comments MCH (test code = MCH) 24.0 pg 27.0-31.0 [place] 778932-07-25 08:03:00 Test Item Value Reference Range Interpretation Comments MCHC (test code = MCHC) 31.6 32.0-36.0 [facility] CenterGsdidvsFXJXZWFHBD2150-30-80 08:03:00 Test Item Value Reference Range Interpretation Comments RDW (test code = RDW) 20.9 11.5-14.5 [place] 778932-07-25 08:03:00 Test Item Value Reference Range Interpretation Comments Platelet (test code = Platelet) 289 133-450 [facility] CenterIgjpcphOEUKHVCZTH4291-42-01 08:03:00 Test Item Value Reference Range Interpretation Comments MPV (test code = MPV) 7.5 7.4-10.4 [facility] CenterRusfnwoXLLFZTXDCF5432-12-71 08:03:00 Test Item Value Reference Range Interpretation Comments Segs (test code = Segs) 94.0 45.0-75.0 [facility] CenterZzkpwypFJATZCGEQS7006-86-29 08:03:00 Test Item Value Reference Range Interpretation Comments Lymphocytes (test code = Lymphocytes) 4.3 20.0-40.0 [place] 778932-07-25 08:03:00 Test Item Value Reference Range Interpretation Comments Monocytes (test code = Monocytes) 1.6 2.0-12.0 [facility] CenterVfiisimVUWNQTXYUN0940-24-33 08:03:00 Test Item Value Reference Range Interpretation Comments Basophils (test code = 0.1 See_Comment [Aut omated message] The Basophils) system which ge nerated this result tra nsmitted reference range : <=1.0. The reference r hugo was not used to int erpret this result as normal/abnormal . [facility] CenterFmabmkbSAFBLJICLY7475-53-33 08:03:00 Test Item Value Reference Range Interpretation Comments Neutrophils # (test code = Neutrophils 7.0 1.5-8.1 #) [place] 778932-07-25 08:03:00 Test Item Value Reference Range Interpretation Comments Lymphocytes # (test code = Lymphocytes 0.3 1.0-5.5 #) [facility] CenterLtbdtmnCPBLTEZMBI6382-92-58 08:03:00 Test Item Value Reference Range Interpretation Comments Monocytes # (test code 0.1 See_Comment [Aut omated message] The = Monocytes #) system which generated this result tra nsmitted reference range : <=0.8. The reference r hugo was not used to int erpret this result as normal/abnormal . [facility]FtoeaehWGGHTPWKDK6571-35-84 08:03:00 Test Item Value Reference Range Interpretation Comments Microcyte (test code = 1+ *ABN*(06/13/22 Microcyte) 3:03 AM) [facility]villePrePay[facility] [id number] 08:03:00 Test Item Value Reference Range Interpretation Comments HS Troponin I 1 Hr (test code = HS 50 Troponin I 1 Hr) [facility] [id number] 08:03:00 Test Item Value Reference Range Interpretation Comments HS Troponin I 0 to 1 See Note 5(06/13/22 Hour Delta (test code = 3:03 AM) HS Troponin I 0 to 1 Hour Delta) [facility] [id number] 08:03:00 Test Item Value Reference Range Interpretation Comments Glucose Lvl (test code = Glucose Lvl) 142 70-99 [facility] [id number] 08:03:00 Test Item Value Reference Range Interpretation Comments BUN (test code = BUN) 21 - [facility] [id number] 08:03:00 Test Item Value Reference Range Interpretation Comments Creatinine Lvl (test code = Creatinine 0.84 0.50-1.40 Lvl) [facility] [id number] 08:03:00 Test Item Value Reference Range Interpretation Comments Sodium Lvl (test code = Sodium Lvl) 133 135-145 [facility] [id number] 08:03:00 Test Item Value Reference Range Interpretation Comments Potassium Lvl (test code = Potassium 4.4 3.5-5.1 Lvl) [facility] [id number] 08:03:00 Test Item Value Reference Range Interpretation Comments Chloride Lvl (test code = Chloride Lvl) 98 95-109 [facility] [id number] 08:03:00 Test Item Value Reference Range Interpretation Comments CO2 (test code = CO2) 25 24-32 [facility] [id number] 08:03:00 Test Item Value Reference Range Interpretation Comments AGAP (test code = AGAP) 14.4 10.0-20.0 [place] 852652-07-25 08:03:00 Test Item Value Reference Range Interpretation Comments Calcium Lvl (test code = Calcium Lvl) 9.1 8.5-10.5 [place] 852652-07-25 08:03:00 Test Item Value Reference Range Interpretation Comments B/C Ratio (test code = B/C Ratio) 25 1 6-25 [place] 852652-07-25 08:03:00 Test Item Value Reference Range Interpretation Comments Total Protein (test code = Total 6.7 6.4-8.4 Protein) [place] 852652-07-25 08:03:00 Test Item Value Reference Range Interpretation Comments Albumin Lvl (test code = Albumin Lvl) 3.2 3.5-5.0 [place] 852652-07-25 08:03:00 Test Item Value Reference Range Interpretation Comments Globulin (test code = Globulin) 3.5 2.7-4.2 [place] 852652-07-25 08:03:00 Test Item Value Reference Range Interpretation Comments A/G Ratio (test code = A/G Ratio) 0.9 1 0.7-1.6 [place] 852652-07-25 08:03:00 Test Item Value Reference Range Interpretation Comments ALT (test code = ALT) 19 See_Comment [Auto mated message] The system which ge nerated this result transmit lavon reference range : <=65. The reference range was not used to interpr et this result as dionne l/abnormal. [facility] [id number] 08:03:00 Test Item Value Reference Range Interpretation Comments AST (test code = AST) 26 See_Comment [Auto mated message] The system which ge nerated this result transmit lavon reference range : <=37. The reference range was not used to interpr et this result as dionne l/abnormal. [place] 852652-07-25 08:03:00 Test Item Value Reference Range Interpretation Comments Alk Phos (test code = Alk Phos) 56 39-136 [place] 852652-07-25 08:03:00 Test Item Value Reference Range Interpretation Comments Bili Total (test code = Bili Total) 1.0 0.2-1.3 [facility]2022-07-25 08:03:00 Test Item Value Reference Range Interpretation Comments eGFR (test code = eGFR) 67 [place] 852652-07-25 08:03:00 Test Item Value Reference Range Interpretation Comments Magnesium Lvl (test code = Magnesium 1.9 1.8-2.4 Lvl) [place] 852652-07-25 08:03:00 Test Item Value Reference Range Interpretation Comments Procalcitonin Lvl (test no gt See_Comment [Au tomated message] code = Procalcitonin Lvl) Th e system which generated this result transmitted ref erence range: <=0.10. The reference range was not used to interpr et this result as normal/abnormal . [facility]2022-07-25 08:03:00 Test Item Value Reference Range Interpretation Comments LDH (test code = LDH) 354 98-192 [facility] CenterUggxflnEBARESDXPB3648-63-94 08:03:00 Test Item Value Reference Range Interpretation Comments WBC (test code = WBC) 7.5 3.7-10.4 [place] 778932-07-25 08:03:00 Test Item Value Reference Range Interpretation Comments RBC (test code = RBC) 3.44 4.20-5.40 [place] 778932-07-25 08:03:00 Test Item Value Reference Range Interpretation Comments Hgb (test code = Hgb) 8.3 12.0-16.0 [place] 778932-07-25 08:03:00 Test Item Value Reference Range Interpretation Comments Hct (test code = Hct) 26.2 36.0-48.0 [place] 778932-07-25 08:03:00 Test Item Value Reference Range Interpretation Comments MCV (test code = MCV) 76.1 80.0-98.0 [place] 778932-07-25 08:03:00 Test Item Value Reference Range Interpretation Comments MCH (test code = MCH) 24.0 pg 27.0-31.0 [place] 778932-07-25 08:03:00 Test Item Value Reference Range Interpretation Comments MCHC (test code = MCHC) 31.6 32.0-36.0 [place] 778932-07-25 08:03:00 Test Item Value Reference Range Interpretation Comments RDW (test code = RDW) 20.9 11.5-14.5 [place] [address]-07-25 08:03:00 Test Item Value Reference Range Interpretation Comments Platelet (test code = Platelet) 289 133-450 [place] 778932-07-25 08:03:00 Test Item Value Reference Range Interpretation Comments MPV (test code = MPV) 7.5 7.4-10.4 [place] [address]-07-25 08:03:00 Test Item Value Reference Range Interpretation Comments Segs (test code = Segs) 94.0 45.0-75.0 [place] [address]-07-25 08:03:00 Test Item Value Reference Range Interpretation Comments Lymphocytes (test code = Lymphocytes) 4.3 20.0-40.0 [place] [address]-07-25 08:03:00 Test Item Value Reference Range Interpretation Comments Monocytes (test code = Monocytes) 1.6 2.0-12.0 [place] [address]-07-25 08:03:00 Test Item Value Reference Range Interpretation Comments Basophils (test code = 0.1 See_Comment [Aut omated message] The Basophils) system which ge nerated this result tra nsmitted reference range : <=1.0. The reference r hugo was not used to int erpret this result as normal/abnormal . [place] 778932-07-25 08:03:00 Test Item Value Reference Range Interpretation Comments Neutrophils # (test code = Neutrophils 7.0 1.5-8.1 #) [place] 778932-07-25 08:03:00 Test Item Value Reference Range Interpretation Comments Lymphocytes # (test code = Lymphocytes 0.3 1.0-5.5 #) [place] [address]-07-25 08:03:00 Test Item Value Reference Range Interpretation Comments Monocytes # (test code 0.1 See_Comment [Aut omated message] The = Monocytes #) system which generated this result tra nsmitted reference range : <=0.8. The reference r hugo was not used to int erpret this result as normal/abnormal . [place] [address]-07-25 08:03:00 Test Item Value Reference Range Interpretation Comments Microcyte (test code = 1+ *ABN*(06/13/22 Microcyte) 3:03 AM) [facility] [id number] 08:03:00 Test Item Value Reference Range Interpretation Comments HS Troponin I 1 Hr (test code = HS 50 Troponin I 1 Hr) [facility] [id number] 08:03:00 Test Item Value Reference Range Interpretation Comments HS Troponin I 0 to 1 See Note 5(06/13/22 Hour Delta (test code = 3:03 AM) HS Troponin I 0 to 1 Hour Delta) [facility] [employer] [id number] 08:03:00 Test Item Value Reference Range Interpretation Comments Glucose Lvl (test code = Glucose Lvl) 142 70-99 [facility] [employer] [id number] 08:03:00 Test Item Value Reference Range Interpretation Comments BUN (test code = BUN) 21 06-10 [facility] [employer] [id number] 08:03:00 Test Item Value Reference Range Interpretation Comments Creatinine Lvl (test code = Creatinine 0.84 0.50-1.40 Lvl) [facility] [employer] [id number] 08:03:00 Test Item Value Reference Range Interpretation Comments Sodium Lvl (test code = Sodium Lvl) 133 135-145 [facility] [employer] [id number] 08:03:00 Test Item Value Reference Range Interpretation Comments Potassium Lvl (test code = Potassium 4.4 3.5-5.1 Lvl) [facility] [employer] [id number] 08:03:00 Test Item Value Reference Range Interpretation Comments Chloride Lvl (test code = Chloride Lvl) 98 95-109 [facility] [employer] [id number] 08:03:00 Test Item Value Reference Range Interpretation Comments CO2 (test code = CO2) 25 24-32 [facility] [employer] [id number] 08:03:00 Test Item Value Reference Range Interpretation Comments AGAP (test code = AGAP) 14.4 10.0-20.0 [facility] [employer] [id number] 08:03:00 Test Item Value Reference Range Interpretation Comments Calcium Lvl (test code = Calcium Lvl) 9.1 8.5-10.5 [facility] [employer]2022-07-25 08:03:00 Test Item Value Reference Range Interpretation Comments B/C Ratio (test code = B/C Ratio) 25 1 6-25 [place] 852652-07-25 08:03:00 Test Item Value Reference Range Interpretation Comments Total Protein (test code = Total 6.7 6.4-8.4 Protein) [place] 852652-07-25 08:03:00 Test Item Value Reference Range Interpretation Comments Albumin Lvl (test code = Albumin Lvl) 3.2 3.5-5.0 [place] 852652-07-25 08:03:00 Test Item Value Reference Range Interpretation Comments Globulin (test code = Globulin) 3.5 2.7-4.2 [place] 852652-07-25 08:03:00 Test Item Value Reference Range Interpretation Comments A/G Ratio (test code = A/G Ratio) 0.9 1 0.7-1.6 [place] 852652-07-25 08:03:00 Test Item Value Reference Range Interpretation Comments ALT (test code = ALT) 19 See_Comment [Auto mated message] The system which ge nerated this result transmit lavon reference range : <=65. The reference range was not used to interpr et this result as dionne l/abnormal. [facility] [id number] 08:03:00 Test Item Value Reference Range Interpretation Comments AST (test code = AST) 26 See_Comment [Auto mated message] The system which ge nerated this result transmit lavon reference range : <=37. The reference range was not used to interpr et this result as dionne l/abnormal. [facility] [id number] 08:03:00 Test Item Value Reference Range Interpretation Comments Alk Phos (test code = Alk Phos) 56 39-136 [facility] [id number] 08:03:00 Test Item Value Reference Range Interpretation Comments Bili Total (test code = Bili Total) 1.0 0.2-1.3 [place] 852652-07-25 08:03:00 Test Item Value Reference Range Interpretation Comments eGFR (test code = eGFR) 67 [facility] [id number] 08:03:00 Test Item Value Reference Range Interpretation Comments Magnesium Lvl (test code = Magnesium 1.9 1.8-2.4 Lvl) [facility]2022-07-25 08:03:00 Test Item Value Reference Range Interpretation Comments Procalcitonin Lvl (test no gt See_Comment [Au tomated message] code = Procalcitonin Lvl) Th e system which generated this result transmitted ref erence range: <=0.10. The reference range was not used to interpr et this result as normal/abnormal . [facility]2022-07-25 08:03:00 Test Item Value Reference Range Interpretation Comments LDH (test code = LDH) 354 98-192 [facility] CenterNyogaavMPZGKFKQLT8843-63-72 08:03:00 Test Item Value Reference Range Interpretation Comments WBC (test code = WBC) 7.5 3.7-10.4 [facility] CenterKyczwclAIWUNZFNER8132-88-72 08:03:00 Test Item Value Reference Range Interpretation Comments RBC (test code = RBC) 3.44 4.20-5.40 [facility] CenterQiiuxigQXSZVXBIYE8165-20-02 08:03:00 Test Item Value Reference Range Interpretation Comments Hgb (test code = Hgb) 8.3 12.0-16.0 [facility] CenterHfllhweUPVFVZGRSY2224-11-56 08:03:00 Test Item Value Reference Range Interpretation Comments Hct (test code = Hct) 26.2 36.0-48.0 [facility] CenterKwkpklrQPDNDFJPUD6953-63-36 08:03:00 Test Item Value Reference Range Interpretation Comments MCV (test code = MCV) 76.1 80.0-98.0 [facility] CenterFxipppxJHPPPELXAK4424-05-44 08:03:00 Test Item Value Reference Range Interpretation Comments MCH (test code = MCH) 24.0 pg 27.0-31.0 [facility] CenterBgdbfgzCVBGJGUBTX4264-01-91 08:03:00 Test Item Value Reference Range Interpretation Comments MCHC (test code = MCHC) 31.6 32.0-36.0 [facility] CenterGmucyttMNENIABHAJ0516-43-83 08:03:00 Test Item Value Reference Range Interpretation Comments RDW (test code = RDW) 20.9 11.5-14.5 [facility] CenterGkbmpodCOUMQEYRIR7333-47-17 08:03:00 Test Item Value Reference Range Interpretation Comments Platelet (test code = Platelet) 289 133-450 [facility] CenterVbmmgqvRJIDQLWFAS5299-20-41 08:03:00 Test Item Value Reference Range Interpretation Comments MPV (test code = MPV) 7.5 7.4-10.4 [facility] CenterBvxgxgaQLPNCRJEXL2442-37-32 08:03:00 Test Item Value Reference Range Interpretation Comments Segs (test code = Segs) 94.0 45.0-75.0 [facility] CenterQuhoafoGUNMBEKSJA1759-50-76 08:03:00 Test Item Value Reference Range Interpretation Comments Lymphocytes (test code = Lymphocytes) 4.3 20.0-40.0 [facility] CenterCrkbyodHIWEJFRQPZ5267-14-91 08:03:00 Test Item Value Reference Range Interpretation Comments Monocytes (test code = Monocytes) 1.6 2.0-12.0 [facility] CenterImdvtxhQSQKARDJVB5324-11-07 08:03:00 Test Item Value Reference Range Interpretation Comments Basophils (test code = 0.1 See_Comment [Aut omated message] The Basophils) system which ge nerated this result tra nsmitted reference range : <=1.0. The reference r hugo was not used to int erpret this result as normal/abnormal . [facility] CenterGmqhtoqSEOLZOVJWT3675-50-79 08:03:00 Test Item Value Reference Range Interpretation Comments Neutrophils # (test code = Neutrophils 7.0 1.5-8.1 #) [facility] CenterMrhuijvTJDCRQJWWF5603-00-91 08:03:00 Test Item Value Reference Range Interpretation Comments Lymphocytes # (test code = Lymphocytes 0.3 1.0-5.5 #) [facility] CenterOsgflpcUXJFWUONUQ9200-87-25 08:03:00 Test Item Value Reference Range Interpretation Comments Monocytes # (test code 0.1 See_Comment [Aut omated message] The = Monocytes #) system which generated this result tra nsmitted reference range : <=0.8. The reference r hugo was not used to int erpret this result as normal/abnormal . [id number] 08:03:00 Test Item Value Reference Range Interpretation Comments Microcyte (test code = 1+ *ABN*(06/13/22 Microcyte) 3:03 AM) [facility] [id number] 07:27:00 Test Item Value Reference Range Interpretation Comments HS Troponin I Baseline (test code = HS 46 Troponin I Baseline) [facility] [id number] 07:27:00 Test Item Value Reference Range Interpretation Comments HS Troponin I Baseline (test code = HS 46 Troponin I Baseline) [facility] [id number] 07:27:00 Test Item Value Reference Range Interpretation Comments HS Troponin I Baseline (test code = HS 46 Troponin I Baseline) [facility] [id number] 07:27:00 Test Item Value Reference Range Interpretation Comments HS Troponin I Baseline (test code = HS 46 Troponin I Baseline) [facility]ARD[facility] [id number] 07:27:00 Test Item Value Reference Range Interpretation Comments HS Troponin I Baseline (test code = HS 46 Troponin I Baseline) [facility]ARD[facility] [id number] 07:27:00 Test Item Value Reference Range Interpretation Comments HS Troponin I Baseline (test code = HS 46 Troponin I Baseline) [facility] [id number] 07:27:00 Test Item Value Reference Range Interpretation Comments HS Troponin I Baseline (test code = HS 46 Troponin I Baseline) [facility] [id number] 07:27:00 Test Item Value Reference Range Interpretation Comments HS Troponin I Baseline (test code = HS 46 Troponin I Baseline) [facility] [id number] 07:27:00 Test Item Value Reference Range Interpretation Comments HS Troponin I Baseline (test code = HS 46 Troponin I Baseline) [facility] [id number] 07:27:00 Test Item Value Reference Range Interpretation Comments HS Troponin I Baseline (test code = HS 46 Troponin I Baseline) [facility] [id number] 07:27:00 Test Item Value Reference Range Interpretation Comments HS Troponin I Baseline (test code = HS 46 Troponin I Baseline) [facility] [id number] 07:27:00 Test Item Value Reference Range Interpretation Comments HS Troponin I Baseline (test code = HS 46 Troponin I Baseline) [facility] [id number] 07:27:00 Test Item Value Reference Range Interpretation Comments HS Troponin I Baseline (test code = HS 46 Troponin I Baseline) [facility] [id number] 07:27:00 Test Item Value Reference Range Interpretation Comments HS Troponin I Baseline (test code = HS 46 Troponin I Baseline) [facility] [id number] 07:27:00 Test Item Value Reference Range Interpretation Comments HS Troponin I Baseline (test code = HS 46 Troponin I Baseline) [facility] [id number] 07:27:00 Test Item Value Reference Range Interpretation Comments HS Troponin I Baseline (test code = HS 46 Troponin I Baseline) [facility] [id number] 07:27:00 Test Item Value Reference Range Interpretation Comments HS Troponin I Baseline (test code = HS 46 Troponin I Baseline) [facility] [id number] 07:27:00 Test Item Value Reference Range Interpretation Comments HS Troponin I Baseline (test code = HS 46 Troponin I Baseline) [facility] [id number] 07:27:00 Test Item Value Reference Range Interpretation Comments HS Troponin I Baseline (test code = HS 46 Troponin I Baseline) [facility] [id number] 07:27:00 Test Item Value Reference Range Interpretation Comments HS Troponin I Baseline (test code = HS 46 Troponin I Baseline) [facility] [id number] 07:27:00 Test Item Value Reference Range Interpretation Comments HS Troponin I Baseline (test code = HS 46 Troponin I Baseline) [facility] [id number] 07:27:00 Test Item Value Reference Range Interpretation Comments HS Troponin I Baseline (test code = HS 46 Troponin I Baseline) [facility] [id number] 07:27:00 Test Item Value Reference Range Interpretation Comments HS Troponin I Baseline (test code = HS 46 Troponin I Baseline) [facility] [id number] 07:27:00 Test Item Value Reference Range Interpretation Comments HS Troponin I Baseline (test code = HS 46 Troponin I Baseline) [facility] [id number] 07:27:00 Test Item Value Reference Range Interpretation Comments HS Troponin I Baseline (test code = HS 46 Troponin I Baseline) [facility] [id number] 07:27:00 Test Item Value Reference Range Interpretation Comments HS Troponin I Baseline (test code = HS 46 Troponin I Baseline) [facility] [id number] 07:27:00 Test Item Value Reference Range Interpretation Comments HS Troponin I Baseline (test code = HS 46 Troponin I Baseline) [facility] [id number] 07:27:00 Test Item Value Reference Range Interpretation Comments HS Troponin I Baseline (test code = HS 46 Troponin I Baseline) [facility] [id number] 07:27:00 Test Item Value Reference Range Interpretation Comments HS Troponin I Baseline (test code = HS 46 Troponin I Baseline) [facility] [id number] 07:27:00 Test Item Value Reference Range Interpretation Comments HS Troponin I Baseline (test code = HS 46 Troponin I Baseline) [facility] [id number] 07:27:00 Test Item Value Reference Range Interpretation Comments HS Troponin I Baseline (test code = HS 46 Troponin I Baseline) [facility] [id number] 07:27:00 Test Item Value Reference Range Interpretation Comments HS Troponin I Baseline (test code = HS 46 Troponin I Baseline) [facility] [id number] 07:27:00 Test Item Value Reference Range Interpretation Comments HS Troponin I Baseline (test code = HS 46 Troponin I Baseline) [facility] [id number] 07:27:00 Test Item Value Reference Range Interpretation Comments HS Troponin I Baseline (test code = HS 46 Troponin I Baseline) [facility] [id number] 07:27:00 Test Item Value Reference Range Interpretation Comments HS Troponin I Baseline (test code = HS 46 Troponin I Baseline) [facility] [id number] 07:27:00 Test Item Value Reference Range Interpretation Comments HS Troponin I Baseline (test code = HS 46 Troponin I Baseline) [facility] [id number] 07:27:00 Test Item Value Reference Range Interpretation Comments HS Troponin I Baseline (test code = HS 46 Troponin I Baseline) [facility] [id number] 07:27:00 Test Item Value Reference Range Interpretation Comments HS Troponin I Baseline (test code = HS 46 Troponin I Baseline) [facility] [id number] 07:27:00 Test Item Value Reference Range Interpretation Comments HS Troponin I Baseline (test code = HS 46 Troponin I Baseline) [facility] [id number] 07:27:00 Test Item Value Reference Range Interpretation Comments HS Troponin I Baseline (test code = HS 46 Troponin I Baseline) [facility] [id number] 07:27:00 Test Item Value Reference Range Interpretation Comments HS Troponin I Baseline (test code = HS 46 Troponin I Baseline) [facility] [id number] 07:27:00 Test Item Value Reference Range Interpretation Comments HS Troponin I Baseline (test code = HS 46 Troponin I Baseline) [facility] [id number] 07:27:00 Test Item Value Reference Range Interpretation Comments HS Troponin I Baseline (test code = HS 46 Troponin I Baseline) [facility] [id number] 07:27:00 Test Item Value Reference Range Interpretation Comments HS Troponin I Baseline (test code = HS 46 Troponin I Baseline) [facility] [id number] 07:27:00 Test Item Value Reference Range Interpretation Comments HS Troponin I Baseline (test code = HS 46 Troponin I Baseline) [facility] [id number] 07:27:00 Test Item Value Reference Range Interpretation Comments HS Troponin I Baseline (test code = HS 46 Troponin I Baseline) [facility] [id number] 07:27:00 Test Item Value Reference Range Interpretation Comments HS Troponin I Baseline (test code = HS 46 Troponin I Baseline) [facility] [id number] 07:27:00 Test Item Value Reference Range Interpretation Comments HS Troponin I Baseline (test code = HS 46 Troponin I Baseline) [facility] [id number] 07:27:00 Test Item Value Reference Range Interpretation Comments HS Troponin I Baseline (test code = HS 46 Troponin I Baseline) [facility] [id number] 07:27:00 Test Item Value Reference Range Interpretation Comments HS Troponin I Baseline (test code = HS 46 Troponin I Baseline) [facility] [id number] 07:27:00 Test Item Value Reference Range Interpretation Comments HS Troponin I Baseline (test code = HS 46 Troponin I Baseline) [facility] [id number] 07:27:00 Test Item Value Reference Range Interpretation Comments HS Troponin I Baseline (test code = HS 46 Troponin I Baseline) [facility] [id number] 07:27:00 Test Item Value Reference Range Interpretation Comments HS Troponin I Baseline (test code = HS 46 Troponin I Baseline) [facility] [id number] 07:27:00 Test Item Value Reference Range Interpretation Comments HS Troponin I Baseline (test code = HS 46 Troponin I Baseline) [facility] [id number] 04:26:00 Test Item Value Reference Range Interpretation Comments HS Troponin I (test code = HS Troponin 46 I) [facility] [id number] 04:26:00 Test Item Value Reference Range Interpretation Comments BNP (test code = BNP) [facility] [facility] [id number] 04:26:00 Test Item Value Reference Range Interpretation Comments Coronavirus (COVID-19) Not Detected (06/12/22 DEJUAN (test code = 11:26 PM) Coronavirus (COVID-19) DEJUAN) [facility] [id number] 04:26:00 Test Item Value Reference Range Interpretation Comments HS Troponin I (test code = HS Troponin 46 I) [facility] [id number] 04:26:00 Test Item Value Reference Range Interpretation Comments BNP (test code = BNP) 851 [facility] Gre[id number] 04:26:00 Test Item Value Reference Range Interpretation Comments Coronavirus (COVID-19) Not Detected (06/12/22 DEJUAN (test code = 11:26 PM) Coronavirus (COVID-19) DEJUAN) [facility]villePropancROB[facility] [id number] 04:26:00 Test Item Value Reference Range Interpretation Comments HS Troponin I (test code = HS Troponin 46 I) [facility] [employer]2022-07-25 04:26:00 Test Item Value Reference Range Interpretation Comments BNP (test code = BNP) 851 [facility] [id number] 04:26:00 Test Item Value Reference Range Interpretation Comments Coronavirus (COVID-19) Not Detected (06/12/22 DEJUAN (test code = 11:26 PM) Coronavirus (COVID-19) DEJUAN) [facility]annPrePayMeAC [id number] 04:26:00 Test Item Value Reference Range Interpretation Comments HS Troponin I (test code = HS Troponin 46 I) [facility]GetIntent[facility] [id number] 04:26:00 Test Item Value Reference Range Interpretation Comments BNP (test code = BNP) 851 [facility] Gre[id number] 04:26:00 Test Item Value Reference Range Interpretation Comments Coronavirus (COVID-19) Not Detected (06/12/22 DEJUAN (test code = 11:26 PM) Coronavirus (COVID-19) DEJUAN) [facility]GetIntentAC [id number] 04:26:00 Test Item Value Reference Range Interpretation Comments HS Troponin I (test code = HS Troponin 46 I) [facility] [id number] 04:26:00 Test Item Value Reference Range Interpretation Comments BNP (test code = BNP) 851 [facility] Gre[id number] 04:26:00 Test Item Value Reference Range Interpretation Comments Coronavirus (COVID-19) Not Detected (06/12/22 DEJUAN (test code = 11:26 PM) Coronavirus (COVID-19) DEJUAN) [facility] [employer]2022-07-25 04:26:00 Test Item Value Reference Range Interpretation Comments HS Troponin I (test code = HS Troponin 46 I) [facility] [id number] 04:26:00 Test Item Value Reference Range Interpretation Comments BNP (test code = BNP) 851 [facility] Gre[id number] 04:26:00 Test Item Value Reference Range Interpretation Comments Coronavirus (COVID-19) Not Detected (06/12/22 DEJUAN (test code = 11:26 PM) Coronavirus (COVID-19) DEJUAN) [facility] [employer]2022-07-25 04:26:00 Test Item Value Reference Range Interpretation Comments HS Troponin I (test code = HS Troponin 46 I) [facility] [id number] 04:26:00 Test Item Value Reference Range Interpretation Comments BNP (test code = BNP) 851 [facility] [id number] 04:26:00 Test Item Value Reference Range Interpretation Comments Coronavirus (COVID-19) Not Detected (06/12/22 DEJUAN (test code = 11:26 PM) Coronavirus (COVID-19) DEJUAN) [facility] [id number] 04:26:00 Test Item Value Reference Range Interpretation Comments HS Troponin I (test code = HS Troponin 46 I) [facility] [employer]2022-07-25 04:26:00 Test Item Value Reference Range Interpretation Comments BNP (test code = BNP) 851 [facility] G[id number] 04:26:00 Test Item Value Reference Range Interpretation Comments Coronavirus (COVID-19) Not Detected (06/12/22 DEJUAN (test code = 11:26 PM) Coronavirus (COVID-19) DEJUAN) [facility]Get[facility] [id number] 04:26:00 Test Item Value Reference Range Interpretation Comments HS Troponin I (test code = HS Troponin 46 I) [facility] [id number] 04:26:00 Test Item Value Reference Range Interpretation Comments BNP (test code = BNP) 85 [facility] [id number] 04:26:00 Test Item Value Reference Range Interpretation Comments Coronavirus (COVID-19) Not Detected (06/12/22 DEJUAN (test code = 11:26 PM) Coronavirus (COVID-19) DEJUAN) [facility] [employer]2022-07-25 04:26:00 Test Item Value Reference Range Interpretation Comments HS Troponin I (test code = HS Troponin 46 I) [facility] [employer]2022-07-25 04:26:00 Test Item Value Reference Range Interpretation Comments BNP (test code = BNP) 85 [facility] G[id number] 04:26:00 Test Item Value Reference Range Interpretation Comments Coronavirus (COVID-19) Not Detected (06/12/22 DEJUAN (test code = 11:26 PM) Coronavirus (COVID-19) DEJUAN) [facility] [employer]2022-07-25 04:26:00 Test Item Value Reference Range Interpretation Comments HS Troponin I (test code = HS Troponin 46 I) [facility] [employer]2022-07-25 04:26:00 Test Item Value Reference Range Interpretation Comments BNP (test code = BNP) 85 [facility] [id number] 04:26:00 Test Item Value Reference Range Interpretation Comments Coronavirus (COVID-19) Not Detected (06/12/22 DEJUAN (test code = 11:26 PM) Coronavirus (COVID-19) DEJUAN) [facility]Get[facility] [id number] 04:26:00 Test Item Value Reference Range Interpretation Comments HS Troponin I (test code = HS Troponin 46 I) [facility] [id number] 04:26:00 Test Item Value Reference Range Interpretation Comments BNP (test code = BNP) 8[address] [facility] H[id number] 04:26:00 Test Item Value Reference Range Interpretation Comments Coronavirus (COVID-19) Not Detected (06/12/22 DEJUAN (test code = 11:26 PM) Coronavirus (COVID-19) DEJUAN) [facility] [id number] 04:26:00 Test Item Value Reference Range Interpretation Comments HS Troponin I (test code = HS Troponin 46 I) [facility] [id number] 04:26:00 Test Item Value Reference Range Interpretation Comments BNP (test code = BNP) 85 [facility] SouthCdawrzyGXAUABBHHK6647-50-78 04:26:00 Test Item Value Reference Range Interpretation Comments Coronavirus (COVID-19) Not Detected (06/12/22 DEJUAN (test code = 11:26 PM) Coronavirus (COVID-19) DEJUAN) [facility] [id number] 04:26:00 Test Item Value Reference Range Interpretation Comments HS Troponin I (test code = HS Troponin 46 I) [facility] [id number] 04:26:00 Test Item Value Reference Range Interpretation Comments BNP (test code = BNP) [facility] H[id number] 04:26:00 Test Item Value Reference Range Interpretation Comments Coronavirus (COVID-19) Not Detected (06/12/22 DEJUAN (test code = 11:26 PM) Coronavirus (COVID-19) DEJUAN) [facility] [id number] 04:26:00 Test Item Value Reference Range Interpretation Comments HS Troponin I (test code = HS Troponin 46 I) [facility] [id number] 04:26:00 Test Item Value Reference Range Interpretation Comments BNP (test code = BNP) [facility]51 [facility] SouthMdfiwqzOPZQZQNDQI3168-79-01 04:26:00 Test Item Value Reference Range Interpretation Comments Coronavirus (COVID-19) Not Detected (06/12/22 DEJUAN (test code = 11:26 PM) Coronavirus (COVID-19) DEJUAN) [facility] [id number] 04:26:00 Test Item Value Reference Range Interpretation Comments HS Troponin I (test code = HS Troponin 46 I) [facility] [id number] 04:26:00 Test Item Value Reference Range Interpretation Comments BNP (test code = BNP) 851 [facility] [id number] 04:26:00 Test Item Value Reference Range Interpretation Comments Coronavirus (COVID-19) Not Detected (06/12/22 DEJUAN (test code = 11:26 PM) Coronavirus (COVID-19) DEJUAN) [facility] [id number] 04:26:00 Test Item Value Reference Range Interpretation Comments HS Troponin I (test code = HS Troponin 46 I) [facility] [id number] 04:26:00 Test Item Value Reference Range Interpretation Comments BNP (test code = BNP) 85 [facility] [id number] 04:26:00 Test Item Value Reference Range Interpretation Comments Coronavirus (COVID-19) Not Detected (06/12/22 DEJUAN (test code = 11:26 PM) Coronavirus (COVID-19) DEJUAN) [facility] [id number] 04:26:00 Test Item Value Reference Range Interpretation Comments HS Troponin I (test code = HS Troponin 46 I) [facility] [id number] 04:26:00 Test Item Value Reference Range Interpretation Comments BNP (test code = BNP) 85 [facility] SouthZulybpgVDTYWKRKKJ9053-97-42 04:26:00 Test Item Value Reference Range Interpretation Comments Coronavirus (COVID-19) Not Detected (06/12/22 DEJUAN (test code = 11:26 PM) Coronavirus (COVID-19) DEJUAN) [facility] [id number] 04:26:00 Test Item Value Reference Range Interpretation Comments HS Troponin I (test code = HS Troponin 46 I) [facility] [id number] 04:26:00 Test Item Value Reference Range Interpretation Comments BNP (test code = BNP) 851 [facility] SouthAaobapyLMVMSJGRQA6009-15-59 04:26:00 Test Item Value Reference Range Interpretation Comments Coronavirus (COVID-19) Not Detected (06/12/22 DEJUAN (test code = 11:26 PM) Coronavirus (COVID-19) DEJUAN) [facility] [employer]2022-07-25 04:26:00 Test Item Value Reference Range Interpretation Comments HS Troponin I (test code = HS Troponin 46 I) [facility]Get[facility]AC [id number] 04:26:00 Test Item Value Reference Range Interpretation Comments BNP (test code = BNP) 851 [facility] TexasG[id number] 04:26:00 Test Item Value Reference Range Interpretation Comments Coronavirus (COVID-19) Not Detected (06/12/22 DEJUAN (test code = 11:26 PM) Coronavirus (COVID-19) DEJUAN) [facility] [employer]2022-07-25 04:26:00 Test Item Value Reference Range Interpretation Comments HS Troponin I (test code = HS Troponin 46 I) [facility] [employer]2022-07-25 04:26:00 Test Item Value Reference Range Interpretation Comments BNP (test code = BNP) 851 [facility] [id number] 04:26:00 Test Item Value Reference Range Interpretation Comments Coronavirus (COVID-19) Not Detected (06/12/22 DEJUAN (test code = 11:26 PM) Coronavirus (COVID-19) DEJUAN) [facility] [employer]2022-07-25 04:26:00 Test Item Value Reference Range Interpretation Comments HS Troponin I (test code = HS Troponin 46 I) [facility] [employer]2022-07-25 04:26:00 Test Item Value Reference Range Interpretation Comments BNP (test code = BNP) 851 [facility] [id number] 04:26:00 Test Item Value Reference Range Interpretation Comments Coronavirus (COVID-19) Not Detected (06/12/22 DEJUAN (test code = 11:26 PM) Coronavirus (COVID-19) DEJUAN) [facility] [employer]2022-07-25 04:26:00 Test Item Value Reference Range Interpretation Comments HS Troponin I (test code = HS Troponin 46 I) [facility] [employer]2022-07-25 04:26:00 Test Item Value Reference Range Interpretation Comments BNP (test code = BNP) 851 [facility] [id number] 04:26:00 Test Item Value Reference Range Interpretation Comments Coronavirus (COVID-19) Not Detected (06/12/22 DEJUAN (test code = 11:26 PM) Coronavirus (COVID-19) DEJUAN) [facility]villePrePayMe [id number] 04:26:00 Test Item Value Reference Range Interpretation Comments HS Troponin I (test code = HS Troponin 46 I) [facility] [employer] [employer] 04:26:00 Test Item Value Reference Range Interpretation Comments BNP (test code = BNP) 851 [facility] GreenvilleRufpzkaKHZTTRDCBW6582-89-33 04:26:00 Test Item Value Reference Range Interpretation Comments Coronavirus (COVID-19) Not Detected (06/12/22 DEJUAN (test code = 11:26 PM) Coronavirus (COVID-19) DEJUAN) [facility]villePrePay[facility] [id number] 04:26:00 Test Item Value Reference Range Interpretation Comments HS Troponin I (test code = HS Troponin 46 I) [facility] [employer]2022-07-25 04:26:00 Test Item Value Reference Range Interpretation Comments BNP (test code = BNP) 851 [facility] TexasOzswzmgLRTOPJLMRQ8091-34-51 04:26:00 Test Item Value Reference Range Interpretation Comments Coronavirus (COVID-19) Not Detected (06/12/22 DEJUAN (test code = 11:26 PM) Coronavirus (COVID-19) DEJUAN) [facility]Get[facility] [id number] 04:26:00 Test Item Value Reference Range Interpretation Comments HS Troponin I (test code = HS Troponin 46 I) [facility] [employer]2022-07-25 04:26:00 Test Item Value Reference Range Interpretation Comments BNP (test code = BNP) 851 [facility] TexasUbilqzpZOUIDXSZSI7831-81-53 04:26:00 Test Item Value Reference Range Interpretation Comments Coronavirus (COVID-19) Not Detected (06/12/22 DEJUAN (test code = 11:26 PM) Coronavirus (COVID-19) DEJUAN) [facility] [employer]2022-07-25 04:26:00 Test Item Value Reference Range Interpretation Comments HS Troponin I (test code = HS Troponin 46 I) [facility] [employer]2022-07-25 04:26:00 Test Item Value Reference Range Interpretation Comments BNP (test code = BNP) 851 [facility] TexasZlqeozbKTQZCUVTZB0559-75-15 04:26:00 Test Item Value Reference Range Interpretation Comments Coronavirus (COVID-19) Not Detected (06/12/22 DEJUAN (test code = 11:26 PM) Coronavirus (COVID-19) DEJUAN) [facility] [employer]2022-07-25 04:26:00 Test Item Value Reference Range Interpretation Comments HS Troponin I (test code = HS Troponin 46 I) [facility]Prim[facility] [id number] 04:26:00 Test Item Value Reference Range Interpretation Comments BNP (test code = BNP) 851 [facility] TexasCnhxcdiGAPVVFDQZY7119-10-47 04:26:00 Test Item Value Reference Range Interpretation Comments Coronavirus (COVID-19) Not Detected (06/12/22 DEJUAN (test code = 11:26 PM) Coronavirus (COVID-19) DEJUAN) [facility] [employer]2022-07-25 04:26:00 Test Item Value Reference Range Interpretation Comments HS Troponin I (test code = HS Troponin 46 I) [facility] [employer]2022-07-25 04:26:00 Test Item Value Reference Range Interpretation Comments BNP (test code = BNP) 851 [facility] TexasXcdbdruHENWYIDAEL0813-65-19 04:26:00 Test Item Value Reference Range Interpretation Comments Coronavirus (COVID-19) Not Detected (06/12/22 DEJUAN (test code = 11:26 PM) Coronavirus (COVID-19) DEJUAN) [facility] [employer]2022-07-25 04:26:00 Test Item Value Reference Range Interpretation Comments HS Troponin I (test code = HS Troponin 46 I) [facility] [employer] [facility]2022-07-25 04:26:00 Test Item Value Reference Range Interpretation Comments BNP (test code = BNP) 851 [facility] TexasMqbmghhHGJWVIAWID8235-24-56 04:26:00 Test Item Value Reference Range Interpretation Comments Coronavirus (COVID-19) Not Detected (06/12/22 DEJUAN (test code = 11:26 PM) Coronavirus (COVID-19) DEJUAN) [facility]Prim[facility] [id number] 04:26:00 Test Item Value Reference Range Interpretation Comments HS Troponin I (test code = HS Troponin 46 I) [facility] [employer]2022-07-25 04:26:00 Test Item Value Reference Range Interpretation Comments BNP (test code = BNP) 851 [facility] GreenvilleJdvulvoVJZLJQOPUL7598-98-91 04:26:00 Test Item Value Reference Range Interpretation Comments Coronavirus (COVID-19) Not Detected (06/12/22 DEJUAN (test code = 11:26 PM) Coronavirus (COVID-19) DEJUAN) [facility]villePropancROB[facility] [id number] 04:26:00 Test Item Value Reference Range Interpretation Comments HS Troponin I (test code = HS Troponin 46 I) [facility] [id number] 04:26:00 Test Item Value Reference Range Interpretation Comments BNP (test code = BNP) 85 [facility] GreenvilleSkotpgtBAUCWGGFCC5301-21-99 04:26:00 Test Item Value Reference Range Interpretation Comments Coronavirus (COVID-19) Not Detected (06/12/22 DEJUAN (test code = 11:26 PM) Coronavirus (COVID-19) DEJUAN) [facility] [id number] 04:26:00 Test Item Value Reference Range Interpretation Comments HS Troponin I (test code = HS Troponin 46 I) [facility] [employer]2022-07-25 04:26:00 Test Item Value Reference Range Interpretation Comments BNP (test code = BNP) 851 [facility] SouthJvhyifjSUYGSZNKUH9223-36-62 04:26:00 Test Item Value Reference Range Interpretation Comments Coronavirus (COVID-19) Not Detected (06/12/22 DEJUAN (test code = 11:26 PM) Coronavirus (COVID-19) DEJUAN) [facility] GreenvillePocketMobileHKUHBSW8957-44-41 04:26:00 Test Item Value Reference Range Interpretation Comments HS Troponin I (test code = HS Troponin 46 I) [facility] [employer]2022-07-25 04:26:00 Test Item Value Reference Range Interpretation Comments BNP (test code = BNP) 851 [facility] SouthOstrtgoJDJYWTSOCS5451-16-15 04:26:00 Test Item Value Reference Range Interpretation Comments Coronavirus (COVID-19) Not Detected (06/12/22 DEJUAN (test code = 11:26 PM) Coronavirus (COVID-19) DEJUAN) [facility] HospitalSwarm64KAKCFNX1588-51-08 04:26:00 Test Item Value Reference Range Interpretation Comments HS Troponin I (test code = HS Troponin 46 I) [facility] [employer]2022-07-25 04:26:00 Test Item Value Reference Range Interpretation Comments BNP (test code = BNP) 851 [facility] GreenvilleXlizjtbJLBBWYZMFX1107-37-88 04:26:00 Test Item Value Reference Range Interpretation Comments Coronavirus (COVID-19) Not Detected (06/12/22 DEJUAN (test code = 11:26 PM) Coronavirus (COVID-19) DEJUAN) [facility] [employer] [employer]2022-07-25 04:26:00 Test Item Value Reference Range Interpretation Comments HS Troponin I (test code = HS Troponin 46 I) [facility] [employer] [employer]2022-07-25 04:26:00 Test Item Value Reference Range Interpretation Comments BNP (test code = BNP) [facility] GreenvillePmugmtsPWMXQTGKKP9754-30-24 04:26:00 Test Item Value Reference Range Interpretation Comments Coronavirus (COVID-19) Not Detected (06/12/22 DEJUAN (test code = 11:26 PM) Coronavirus (COVID-19) DEJUAN) [facility] [employer] [employer]2022-07-25 04:26:00 Test Item Value Reference Range Interpretation Comments HS Troponin I (test code = HS Troponin 46 I) [facility] [employer]2022-07-25 04:26:00 Test Item Value Reference Range Interpretation Comments BNP (test code = BNP) 1 [facility] GreenvilleIiirgccTOGONYULXX8715-72-19 04:26:00 Test Item Value Reference Range Interpretation Comments Coronavirus (COVID-19) Not Detected (06/12/22 DEJUAN (test code = 11:26 PM) Coronavirus (COVID-19) DEJUAN) [facility] [employer]2022-07-25 04:26:00 Test Item Value Reference Range Interpretation Comments HS Troponin I (test code = HS Troponin 46 I) [facility] [employer]2022-07-25 04:26:00 Test Item Value Reference Range Interpretation Comments BNP (test code = BNP) [facility]villeCqgmcmxJKDNBFSWYU6400-01-39 04:26:00 Test Item Value Reference Range Interpretation Comments Coronavirus (COVID-19) Not Detected (06/12/22 DEJUAN (test code = 11:26 PM) Coronavirus (COVID-19) DEJUAN) [facility] 04:26:00 Test Item Value Reference Range Interpretation Comments HS Troponin I (test code = HS Troponin 46 I) [facility] [id number] 04:26:00 Test Item Value Reference Range Interpretation Comments BNP (test code = BNP) 851 [facility] SouthDesttvqEGDTCZYMHU5684-63-89 04:26:00 Test Item Value Reference Range Interpretation Comments Coronavirus (COVID-19) Not Detected (06/12/22 DEJUAN (test code = 11:26 PM) Coronavirus (COVID-19) DEJUAN) [facility] [id number] 04:26:00 Test Item Value Reference Range Interpretation Comments HS Troponin I (test code = HS Troponin 46 I) [facility]GetIntentAC [id number] 04:26:00 Test Item Value Reference Range Interpretation Comments BNP (test code = BNP) 85 [facility] GreenvilleCpzgnryQKSOVENYMS0333-17-03 04:26:00 Test Item Value Reference Range Interpretation Comments Coronavirus (COVID-19) Not Detected (06/12/22 DEJUAN (test code = 11:26 PM) Coronavirus (COVID-19) DEJUAN) [facility] [id number] 04:26:00 Test Item Value Reference Range Interpretation Comments HS Troponin I (test code = HS Troponin 46 I) [facility] TexasMelodigramVALLEYWISE HEALTH MEDICAL CENTERSpectrum5 [id number] 04:26:00 Test Item Value Reference Range Interpretation Comments BNP (test code = BNP) 85 [facility] GreenvilleYjxibovEUVFHAWTXD9367-86-09 04:26:00 Test Item Value Reference Range Interpretation Comments Coronavirus (COVID-19) Not Detected (06/12/22 DEJUAN (test code = 11:26 PM) Coronavirus (COVID-19) DEJUAN) [facility] HospitalDOOMOROAC [id number] 04:26:00 Test Item Value Reference Range Interpretation Comments HS Troponin I (test code = HS Troponin 46 I) [facility] [id number] 04:26:00 Test Item Value Reference Range Interpretation Comments BNP (test code = BNP) 85 [facility] SouthRtwgboxHXLUKEGEOH6934-98-83 04:26:00 Test Item Value Reference Range Interpretation Comments Coronavirus (COVID-19) Not Detected (06/12/22 DEJUAN (test code = 11:26 PM) Coronavirus (COVID-19) DEJUAN) [facility] TexasannPropancDIAC [id number] 04:26:00 Test Item Value Reference Range Interpretation Comments HS Troponin I (test code = HS Troponin 46 I) [facility] TexasMelodigramVALLEYWISE HEALTH MEDICAL CENTERDIAC [id number] 04:26:00 Test Item Value Reference Range Interpretation Comments BNP (test code = BNP) 851 [facility] GreenvilleUlxqbtrQLNSRWWLUL7379-58-28 04:26:00 Test Item Value Reference Range Interpretation Comments Coronavirus (COVID-19) Not Detected (06/12/22 DEJUAN (test code = 11:26 PM) Coronavirus (COVID-19) DEJUAN) [facility]GetIntentAC [id number] 04:26:00 Test Item Value Reference Range Interpretation Comments HS Troponin I (test code = HS Troponin 46 I) [facility] [id number] 04:26:00 Test Item Value Reference Range Interpretation Comments BNP (test code = BNP) 85 [facility] TexasNqnzurqVFYERVIBTV0437-39-60 04:26:00 Test Item Value Reference Range Interpretation Comments Coronavirus (COVID-19) Not Detected (06/12/22 DEJUAN (test code = 11:26 PM) Coronavirus (COVID-19) DEJUAN) [facility]GetIntentAC [id number] 04:26:00 Test Item Value Reference Range Interpretation Comments HS Troponin I (test code = HS Troponin 46 I) [facility]Prim[facility] [id number] 04:26:00 Test Item Value Reference Range Interpretation Comments BNP (test code = BNP) 851 [facility] TexasNujvhzdHVRQBWFXJF1422-56-47 04:26:00 Test Item Value Reference Range Interpretation Comments Coronavirus (COVID-19) Not Detected (06/12/22 DEJUAN (test code = 11:26 PM) Coronavirus (COVID-19) DEJUAN) [facility]GetIntentAC [id number] 04:26:00 Test Item Value Reference Range Interpretation Comments HS Troponin I (test code = HS Troponin 46 I) [facility]GetIntentAC [id number] 04:26:00 Test Item Value Reference Range Interpretation Comments BNP (test code = BNP) 851 [facility] TexasBffhyzuAJLALDTIFX1596-12-20 04:26:00 Test Item Value Reference Range Interpretation Comments Coronavirus (COVID-19) Not Detected (06/12/22 DEJUAN (test code = 11:26 PM) Coronavirus (COVID-19) DEJUAN) [facility] [employer]2022-07-25 04:26:00 Test Item Value Reference Range Interpretation Comments HS Troponin I (test code = HS Troponin 46 I) [facility] [employer]2022-07-25 04:26:00 Test Item Value Reference Range Interpretation Comments BNP (test code = BNP) 851 [facility] TexasBvfiyoqIIKDUZOHLW9389-98-25 04:26:00 Test Item Value Reference Range Interpretation Comments Coronavirus (COVID-19) Not Detected (06/12/22 DEJUAN (test code = 11:26 PM) Coronavirus (COVID-19) DEJUAN) [facility] [employer]2022-07-25 04:26:00 Test Item Value Reference Range Interpretation Comments HS Troponin I (test code = HS Troponin 46 I) [facility] [employer]2022-07-25 04:26:00 Test Item Value Reference Range Interpretation Comments BNP (test code = BNP) 851 [facility] TexasZaigwqiVUOZWKJQGA3694-62-80 04:26:00 Test Item Value Reference Range Interpretation Comments Coronavirus (COVID-19) Not Detected (06/12/22 DEJUNA (test code = 11:26 PM) Coronavirus (COVID-19) DEJUAN) [facility] [employer]2022-07-25 04:26:00 Test Item Value Reference Range Interpretation Comments HS Troponin I (test code = HS Troponin 46 I) [facility] [employer]2022-07-25 04:26:00 Test Item Value Reference Range Interpretation Comments BNP (test code = BNP) 851 [facility] TexasAanfgjeSHWJDZFYYI9881-87-56 04:26:00 Test Item Value Reference Range Interpretation Comments Coronavirus (COVID-19) Not Detected (06/12/22 DEJUAN (test code = 11:26 PM) Coronavirus (COVID-19) DEJUAN) [facility] [employer]2022-07-25 04:26:00 Test Item Value Reference Range Interpretation Comments HS Troponin I (test code = HS Troponin 46 I) [facility] [employer]2022-07-25 04:26:00 Test Item Value Reference Range Interpretation Comments BNP (test code = BNP) 851 [facility] TexasEyqqrrwCJXXUTTLKM7503-85-47 04:26:00 Test Item Value Reference Range Interpretation Comments Coronavirus (COVID-19) Not Detected (06/12/22 DEJUAN (test code = 11:26 PM) Coronavirus (COVID-19) DEJUAN) [facility]Get[facility] [id number] 04:26:00 Test Item Value Reference Range Interpretation Comments HS Troponin I (test code = HS Troponin 46 I) [facility]Get[facility] [id number] 04:26:00 Test Item Value Reference Range Interpretation Comments BNP (test code = BNP) 851 [facility] GreenvilleKnmxgpmEPZAYYSBTR6134-56-24 04:26:00 Test Item Value Reference Range Interpretation Comments Coronavirus (COVID-19) Not Detected (06/12/22 DEJUAN (test code = 11:26 PM) Coronavirus (COVID-19) DEJUAN) [facility]Get[facility] [id number] 04:26:00 Test Item Value Reference Range Interpretation Comments HS Troponin I (test code = HS Troponin 46 I) [facility] [employer]2022-07-25 04:26:00 Test Item Value Reference Range Interpretation Comments BNP (test code = BNP) 851 [facility] GreenvilleMfixggvIFGAVFDEEW6056-31-83 04:26:00 Test Item Value Reference Range Interpretation Comments Coronavirus (COVID-19) Not Detected (06/12/22 DEJUAN (test code = 11:26 PM) Coronavirus (COVID-19) DEJUAN) [facility] [employer]2022-07-25 04:26:00 Test Item Value Reference Range Interpretation Comments HS Troponin I (test code = HS Troponin 46 I) [facility] [employer]2022-07-25 04:26:00 Test Item Value Reference Range Interpretation Comments BNP (test code = BNP) 851 [facility] TexasQuyoknfFIEFCKARAQ5570-54-15 04:26:00 Test Item Value Reference Range Interpretation Comments Coronavirus (COVID-19) Not Detected (06/12/22 DEJUAN (test code = 11:26 PM) Coronavirus (COVID-19) DEJUAN) [facility] [employer]2022-07-25 04:26:00 Test Item Value Reference Range Interpretation Comments HS Troponin I (test code = HS Troponin 46 I) [facility] [employer]2022-07-25 04:26:00 Test Item Value Reference Range Interpretation Comments BNP (test code = BNP) 851 [facility] GreenvilleRimcopzDJTEDCBVHG4959-15-55 04:26:00 Test Item Value Reference Range Interpretation Comments Coronavirus (COVID-19) Not Detected (06/12/22 DEJUAN (test code = 11:26 PM) Coronavirus (COVID-19) DEJUAN) [facility]villeCARDIAC [id number] 02:20:00 Test Item Value Reference Range Interpretation Comments HS Troponin I (test code = HS Troponin 52 I) [facility] [id number] 02:20:00 Test Item Value Reference Range Interpretation Comments Glucose Lvl (test code = Glucose Lvl) 103 70-99 [facility]2022-07-25 02:20:00 Test Item Value Reference Range Interpretation Comments BUN (test code = BUN) 22 06-10 [facility]2022-07-25 02:20:00 Test Item Value Reference Range Interpretation Comments Creatinine Lvl (test code = Creatinine 0.90 0.50-1.40 Lvl) [facility]2022-07-25 02:20:00 Test Item Value Reference Range Interpretation Comments Sodium Lvl (test code = Sodium Lvl) 131 135-145 [facility]2022-07-25 02:20:00 Test Item Value Reference Range Interpretation Comments Potassium Lvl (test code = Potassium 4.2 3.5-5.1 Lvl) [facility]2022-07-25 02:20:00 Test Item Value Reference Range Interpretation Comments Chloride Lvl (test code = Chloride Lvl) 97 95-109 [facility]2022-07-25 02:20:00 Test Item Value Reference Range Interpretation Comments CO2 (test code = CO2) - [facility]2022-07-25 02:20:00 Test Item Value Reference Range Interpretation Comments Calcium Lvl (test code = Calcium Lvl) 8.7 8.5-10.5 [facility]2022-07-25 02:20:00 Test Item Value Reference Range Interpretation Comments Total Protein (test code = Total 7.0 6.4-8.4 Protein) [facility]2022-07-25 02:20:00 Test Item Value Reference Range Interpretation Comments Albumin Lvl (test code = Albumin Lvl) 3.4 3.5-5.0 [facility] [id number] 02:20:00 Test Item Value Reference Range Interpretation Comments ALT (test code = ALT) 18 See_Comment [Auto mated message] The system which ge nerated this result transmit lavon reference range : <=65. The reference range was not used to interpr et this result as dionne l/abnormal. [facility] [id number] 02:20:00 Test Item Value Reference Range Interpretation Comments AST (test code = AST) 27 See_Comment [Auto mated message] The system which ge nerated this result transmit lavon reference range : <=37. The reference range was not used to interpr et this result as dionne l/abnormal. [facility] [employer] [id number] 02:20:00 Test Item Value Reference Range Interpretation Comments Alk Phos (test code = Alk Phos) 57 39-136 [facility] [id number] 02:20:00 Test Item Value Reference Range Interpretation Comments Bili Total (test code = Bili Total) 1.0 0.2-1.3 [facility] [id number] 02:20:00 Test Item Value Reference Range Interpretation Comments AGAP (test code = AGAP) 12.2 10.0-20.0 [facility] [id number] 02:20:00 Test Item Value Reference Range Interpretation Comments B/C Ratio (test code = B/C Ratio) 24 1 6-25 [facility] [id number] 02:20:00 Test Item Value Reference Range Interpretation Comments Globulin (test code = Globulin) 3.6 2.7-4.2 [facility] [employer] [id number] 02:20:00 Test Item Value Reference Range Interpretation Comments A/G Ratio (test code = A/G Ratio) 0.9 1 0.7-1.6 [facility] [id number] 02:20:00 Test Item Value Reference Range Interpretation Comments eGFR (test code = eGFR) 62 [facility] TexasAgvlosuLBTYGYGUWB0896-22-10 02:20:00 Test Item Value Reference Range Interpretation Comments WBC (test code = WBC) 8.6 3.7-10.4 [facility] TexasFmekkasHCLIVJSGSK0682-60-18 02:20:00 Test Item Value Reference Range Interpretation Comments RBC (test code = RBC) 3.58 4.20-5.40 [place] 778932-07-25 02:20:00 Test Item Value Reference Range Interpretation Comments Hgb (test code = Hgb) 8.8 12.0-16.0 [place] 778932-07-25 02:20:00 Test Item Value Reference Range Interpretation Comments Hct (test code = Hct) 27.1 36.0-48.0 [facility]HhzxscbHHLZIALPUS8645-93-69 02:20:00 Test Item Value Reference Range Interpretation Comments MCV (test code = MCV) 75.6 80.0-98.0 [place] 778932-07-25 02:20:00 Test Item Value Reference Range Interpretation Comments MCH (test code = MCH) 24.5 pg 27.0-31.0 [facility] CenterCcpbnvjHQEIPWJXBK1311-60-06 02:20:00 Test Item Value Reference Range Interpretation Comments MCHC (test code = MCHC) 32.4 32.0-36.0 [facility] CenterUlwtiohZFBPWVIDKV0160-23-27 02:20:00 Test Item Value Reference Range Interpretation Comments RDW (test code = RDW) 21.1 11.5-14.5 [place] 778932-07-25 02:20:00 Test Item Value Reference Range Interpretation Comments Platelet (test code = Platelet) 297 133-450 [facility] CenterKxglgriPZRWAEYJTD7281-09-46 02:20:00 Test Item Value Reference Range Interpretation Comments MPV (test code = MPV) 7.5 7.4-10.4 [place] 778932-07-25 02:20:00 Test Item Value Reference Range Interpretation Comments Segs (test code = Segs) 85.8 45.0-75.0 [place] 778932-07-25 02:20:00 Test Item Value Reference Range Interpretation Comments Lymphocytes (test code = Lymphocytes) 8.5 20.0-40.0 [place] 778932-07-25 02:20:00 Test Item Value Reference Range Interpretation Comments Monocytes (test code = Monocytes) 5.0 2.0-12.0 [place] 778932-07-25 02:20:00 Test Item Value Reference Range Interpretation Comments Eosinophils (test code = 0.3 See_Comment [A utomated message] The Eosinophils) system which ge nerated this result tra nsmitted reference range : <=4.0. The reference r hugo was not used to int erpret this result as normal/abnormal . [facility] C[id number] 02:20:00 Test Item Value Reference Range Interpretation Comments Basophils (test code = 0.4 See_Comment [Aut omated message] The Basophils) system which ge nerated this result tra nsmitted reference range : <=1.0. The reference r hugo was not used to int erpret this result as normal/abnormal . [facility] CenterJsrwrfaJMIFTTJPIT5431-08-07 02:20:00 Test Item Value Reference Range Interpretation Comments Neutrophils # (test code = Neutrophils 7.4 1.5-8.1 #) [id number] 02:20:00 Test Item Value Reference Range Interpretation Comments Lymphocytes # (test code = Lymphocytes 0.7 1.0-5.5 #) [id number] 02:20:00 Test Item Value Reference Range Interpretation Comments Monocytes # (test code 0.4 See_Comment [Aut omated message] The = Monocytes #) system which generated this result tra nsmitted reference range : <=0.8. The reference r hugo was not used to int erpret this result as normal/abnormal . [facility] [id number] 02:20:00 Test Item Value Reference Range Interpretation Comments Microcyte (test code = 1+ *ABN*(06/12/22 Microcyte) 9:20 PM) [facility] [id number] 02:20:00 Test Item Value Reference Range Interpretation Comments HS Troponin I (test code = HS Troponin 52 I) [facility] [id number] 02:20:00 Test Item Value Reference Range Interpretation Comments Glucose Lvl (test code = Glucose Lvl) 103 70-99 [facility] [id number] 02:20:00 Test Item Value Reference Range Interpretation Comments BUN (test code = BUN) 22 7-22 [facility] [id number] 02:20:00 Test Item Value Reference Range Interpretation Comments Creatinine Lvl (test code = Creatinine 0.90 0.50-1.40 Lvl) [place] 852652-07-25 02:20:00 Test Item Value Reference Range Interpretation Comments Sodium Lvl (test code = Sodium Lvl) 131 135-145 [place] 852652-07-25 02:20:00 Test Item Value Reference Range Interpretation Comments Potassium Lvl (test code = Potassium 4.2 3.5-5.1 Lvl) [place] 852652-07-25 02:20:00 Test Item Value Reference Range Interpretation Comments Chloride Lvl (test code = Chloride Lvl) 97 95-109 [place] [address]-07-25 02:20:00 Test Item Value Reference Range Interpretation Comments CO2 (test code = CO2) 26 24-32 [place] 852652-07-25 02:20:00 Test Item Value Reference Range Interpretation Comments Calcium Lvl (test code = Calcium Lvl) 8.7 8.5-10.5 [place] 852652-07-25 02:20:00 Test Item Value Reference Range Interpretation Comments Total Protein (test code = Total 7.0 6.4-8.4 Protein) [place] 852652-07-25 02:20:00 Test Item Value Reference Range Interpretation Comments Albumin Lvl (test code = Albumin Lvl) 3.4 3.5-5.0 [place] 852652-07-25 02:20:00 Test Item Value Reference Range Interpretation Comments ALT (test code = ALT) 18 See_Comment [Auto mated message] The system which ge nerated this result transmit lavon reference range : <=65. The reference range was not used to interpr et this result as dionne l/abnormal. [place] 852652-07-25 02:20:00 Test Item Value Reference Range Interpretation Comments AST (test code = AST) 27 See_Comment [Auto mated message] The system which ge nerated this result transmit lavon reference range : <=37. The reference range was not used to interpr et this result as dionne l/abnormal. [place] 852652-07-25 02:20:00 Test Item Value Reference Range Interpretation Comments Alk Phos (test code = Alk Phos) 57 39-136 [place] 852652-07-25 02:20:00 Test Item Value Reference Range Interpretation Comments Bili Total (test code = Bili Total) 1.0 0.2-1.3 [facility]2022-07-25 02:20:00 Test Item Value Reference Range Interpretation Comments AGAP (test code = AGAP) 12.2 10.0-20.0 [place] 852652-07-25 02:20:00 Test Item Value Reference Range Interpretation Comments B/C Ratio (test code = B/C Ratio) 24 1 6-25 [place] 852652-07-25 02:20:00 Test Item Value Reference Range Interpretation Comments Globulin (test code = Globulin) 3.6 2.7-4.2 [place] 852652-07-25 02:20:00 Test Item Value Reference Range Interpretation Comments A/G Ratio (test code = A/G Ratio) 0.9 1 0.7-1.6 [place] 852652-07-25 02:20:00 Test Item Value Reference Range Interpretation Comments eGFR (test code = eGFR) 62 [facility] CenterQyakxziLJJXJVBWBL8922-10-37 02:20:00 Test Item Value Reference Range Interpretation Comments WBC (test code = WBC) 8.6 3.7-10.4 [place] 778932-07-25 02:20:00 Test Item Value Reference Range Interpretation Comments RBC (test code = RBC) 3.58 4.20-5.40 [place] 778932-07-25 02:20:00 Test Item Value Reference Range Interpretation Comments Hgb (test code = Hgb) 8.8 12.0-16.0 [place] 778932-07-25 02:20:00 Test Item Value Reference Range Interpretation Comments Hct (test code = Hct) 27.1 36.0-48.0 [place] 778932-07-25 02:20:00 Test Item Value Reference Range Interpretation Comments MCV (test code = MCV) 75.6 80.0-98.0 [place] 778932-07-25 02:20:00 Test Item Value Reference Range Interpretation Comments MCH (test code = MCH) 24.5 pg 27.0-31.0 [place] 778932-07-25 02:20:00 Test Item Value Reference Range Interpretation Comments MCHC (test code = MCHC) 32.4 32.0-36.0 [place] 778932-07-25 02:20:00 Test Item Value Reference Range Interpretation Comments RDW (test code = RDW) 21.1 11.5-14.5 [place] 778932-07-25 02:20:00 Test Item Value Reference Range Interpretation Comments Platelet (test code = Platelet) 297 133-450 [place] 778932-07-25 02:20:00 Test Item Value Reference Range Interpretation Comments MPV (test code = MPV) 7.5 7.4-10.4 [place] 778932-07-25 02:20:00 Test Item Value Reference Range Interpretation Comments Segs (test code = Segs) 85.8 45.0-75.0 [place] 778932-07-25 02:20:00 Test Item Value Reference Range Interpretation Comments Lymphocytes (test code = Lymphocytes) 8.5 20.0-40.0 [place] 778932-07-25 02:20:00 Test Item Value Reference Range Interpretation Comments Monocytes (test code = Monocytes) 5.0 2.0-12.0 [place] 778932-07-25 02:20:00 Test Item Value Reference Range Interpretation Comments Eosinophils (test code = 0.3 See_Comment [A utomated message] The Eosinophils) system which ge nerated this result tra nsmitted reference range : <=4.0. The reference r hugo was not used to int erpret this result as normal/abnormal . [facility] CenterNbcoxfdHMEVGUUTHV4032-11-44 02:20:00 Test Item Value Reference Range Interpretation Comments Basophils (test code = 0.4 See_Comment [Aut omated message] The Basophils) system which ge nerated this result tra nsmitted reference range : <=1.0. The reference r hugo was not used to int erpret this result as normal/abnormal . [place] 778932-07-25 02:20:00 Test Item Value Reference Range Interpretation Comments Neutrophils # (test code = Neutrophils 7.4 1.5-8.1 #) [place] 778932-07-25 02:20:00 Test Item Value Reference Range Interpretation Comments Lymphocytes # (test code = Lymphocytes 0.7 1.0-5.5 #) [place] 778932-07-25 02:20:00 Test Item Value Reference Range Interpretation Comments Monocytes # (test code 0.4 See_Comment [Aut omated message] The = Monocytes #) system which generated this result tra nsmitted reference range : <=0.8. The reference r hugo was not used to int erpret this result as normal/abnormal . [facility][id number] 02:20:00 Test Item Value Reference Range Interpretation Comments Microcyte (test code = 1+ *ABN*(06/12/22 Microcyte) 9:20 PM) [facility] [id number] 02:20:00 Test Item Value Reference Range Interpretation Comments HS Troponin I (test code = HS Troponin 52 I) [facility] [id number] 02:20:00 Test Item Value Reference Range Interpretation Comments Glucose Lvl (test code = Glucose Lvl) 103 70-99 [facility] [id number] 02:20:00 Test Item Value Reference Range Interpretation Comments BUN (test code = BUN) 22 7-22 [facility] [id number] 02:20:00 Test Item Value Reference Range Interpretation Comments Creatinine Lvl (test code = Creatinine 0.90 0.50-1.40 Lvl) [facility] [id number] 02:20:00 Test Item Value Reference Range Interpretation Comments Sodium Lvl (test code = Sodium Lvl) 131 135-145 [facility] [id number] 02:20:00 Test Item Value Reference Range Interpretation Comments Potassium Lvl (test code = Potassium 4.2 3.5-5.1 Lvl) [facility] [id number] 02:20:00 Test Item Value Reference Range Interpretation Comments Chloride Lvl (test code = Chloride Lvl) 97 95-109 [facility] [id number] 02:20:00 Test Item Value Reference Range Interpretation Comments CO2 (test code = CO2) 26 24-32 [facility] [id number] 02:20:00 Test Item Value Reference Range Interpretation Comments Calcium Lvl (test code = Calcium Lvl) 8.7 8.5-10.5 [facility] [id number] 02:20:00 Test Item Value Reference Range Interpretation Comments Total Protein (test code = Total 7.0 6.4-8.4 Protein) [facility]2022-07-25 02:20:00 Test Item Value Reference Range Interpretation Comments Albumin Lvl (test code = Albumin Lvl) 3.4 3.5-5.0 [facility]2022-07-25 02:20:00 Test Item Value Reference Range Interpretation Comments ALT (test code = ALT) 18 See_Comment [Auto mated message] The system which ge nerated this result transmit lavon reference range : <=65. The reference range was not used to interpr et this result as dionne l/abnormal. [place] 852652-07-25 02:20:00 Test Item Value Reference Range Interpretation Comments AST (test code = AST) 27 See_Comment [Auto mated message] The system which ge nerated this result transmit lavon reference range : <=37. The reference range was not used to interpr et this result as dionne l/abnormal. [place] 852652-07-25 02:20:00 Test Item Value Reference Range Interpretation Comments Alk Phos (test code = Alk Phos) 57 39-136 [place] 852652-07-25 02:20:00 Test Item Value Reference Range Interpretation Comments Bili Total (test code = Bili Total) 1.0 0.2-1.3 [place] 852652-07-25 02:20:00 Test Item Value Reference Range Interpretation Comments AGAP (test code = AGAP) 12.2 10.0-20.0 [place] 852652-07-25 02:20:00 Test Item Value Reference Range Interpretation Comments B/C Ratio (test code = B/C Ratio) 24 1 6-25 [place] 852652-07-25 02:20:00 Test Item Value Reference Range Interpretation Comments Globulin (test code = Globulin) 3.6 2.7-4.2 [place] 852652-07-25 02:20:00 Test Item Value Reference Range Interpretation Comments A/G Ratio (test code = A/G Ratio) 0.9 1 0.7-1.6 [place] 852652-07-25 02:20:00 Test Item Value Reference Range Interpretation Comments eGFR (test code = eGFR) 62 [facility] CenterC[id number] 02:20:00 Test Item Value Reference Range Interpretation Comments WBC (test code = WBC) 8.6 3.7-10.4 [facility] CenterCfyfaopANWBWIMQXY6462-44-88 02:20:00 Test Item Value Reference Range Interpretation Comments RBC (test code = RBC) 3.58 4.20-5.40 [facility] CenterEkpjrufHIKDGRQNPP0100-64-04 02:20:00 Test Item Value Reference Range Interpretation Comments Hgb (test code = Hgb) 8.8 12.0-16.0 [facility] C[id number] 02:20:00 Test Item Value Reference Range Interpretation Comments Hct (test code = Hct) 27.1 36.0-48.0 [facility] CenterEyzlklwMVKKMYAHFS3681-33-55 02:20:00 Test Item Value Reference Range Interpretation Comments MCV (test code = MCV) 75.6 80.0-98.0 [facility] CenterIreepryLSYPPIDXWN7339-71-37 02:20:00 Test Item Value Reference Range Interpretation Comments MCH (test code = MCH) 24.5 pg 27.0-31.0 [facility] CenterMnukbbvUHJWIMMYCD5195-13-11 02:20:00 Test Item Value Reference Range Interpretation Comments MCHC (test code = MCHC) 32.4 32.0-36.0 [facility] CenterJavqpfyKPGSDCCXMK5305-91-16 02:20:00 Test Item Value Reference Range Interpretation Comments RDW (test code = RDW) 21.1 11.5-14.5 [facility] CenterOsjojzcDHUGATZGYA1496-53-30 02:20:00 Test Item Value Reference Range Interpretation Comments Platelet (test code = Platelet) 297 133-450 [facility] CenterUskqieeQAGFXNOXMW7847-81-26 02:20:00 Test Item Value Reference Range Interpretation Comments MPV (test code = MPV) 7.5 7.4-10.4 [facility] CenterMqhrbvcNHSMMSFPWT5821-76-58 02:20:00 Test Item Value Reference Range Interpretation Comments Segs (test code = Segs) 85.8 45.0-75.0 [facility] CenterShkkjlvTQVURZLKSN3984-91-67 02:20:00 Test Item Value Reference Range Interpretation Comments Lymphocytes (test code = Lymphocytes) 8.5 20.0-40.0 [facility] CenterIzadxcfKJWHMDIQUA7415-20-26 02:20:00 Test Item Value Reference Range Interpretation Comments Monocytes (test code = Monocytes) 5.0 2.0-12.0 [facility] CenterTdiyitrAIOVZEEFDH5865-52-51 02:20:00 Test Item Value Reference Range Interpretation Comments Eosinophils (test code = 0.3 See_Comment [A utomated message] The Eosinophils) system which ge nerated this result tra nsmitted reference range : <=4.0. The reference r hugo was not used to int erpret this result as normal/abnormal . [facility] CenterYcbtzdqXPASBQTWKK4278-99-42 02:20:00 Test Item Value Reference Range Interpretation Comments Basophils (test code = 0.4 See_Comment [Aut omated message] The Basophils) system which ge nerated this result tra nsmitted reference range : <=1.0. The reference r hugo was not used to int erpret this result as normal/abnormal . [facility] CenterNhqmvrzRQAOZOGVGC4791-67-30 02:20:00 Test Item Value Reference Range Interpretation Comments Neutrophils # (test code = Neutrophils 7.4 1.5-8.1 #) [facility] CenterYiuhyluHSTKMSFKPQ2093-14-19 02:20:00 Test Item Value Reference Range Interpretation Comments Lymphocytes # (test code = Lymphocytes 0.7 1.0-5.5 #) [facility] CenterHspakisJTQUVTCSEH8159-44-63 02:20:00 Test Item Value Reference Range Interpretation Comments Monocytes # (test code 0.4 See_Comment [Aut omated message] The = Monocytes #) system which generated this result tra nsmitted reference range : <=0.8. The reference r hugo was not used to int erpret this result as normal/abnormal . [facility] CenterMsvobddGSRYPBJSYO6842-57-46 02:20:00 Test Item Value Reference Range Interpretation Comments Microcyte (test code = 1+ *ABN*(06/12/22 Microcyte) 9:20 PM) [facility] [id number] 02:20:00 Test Item Value Reference Range Interpretation Comments HS Troponin I (test code = HS Troponin 52 I) [facility]2022-07-25 02:20:00 Test Item Value Reference Range Interpretation Comments Glucose Lvl (test code = Glucose Lvl) 103 70-99 [facility]2022-07-25 02:20:00 Test Item Value Reference Range Interpretation Comments BUN (test code = BUN) 22 - [place] 852652-07-25 02:20:00 Test Item Value Reference Range Interpretation Comments Creatinine Lvl (test code = Creatinine 0.90 0.50-1.40 Lvl) [place] 852652-07-25 02:20:00 Test Item Value Reference Range Interpretation Comments Sodium Lvl (test code = Sodium Lvl) 131 135-145 [place] 852652-07-25 02:20:00 Test Item Value Reference Range Interpretation Comments Potassium Lvl (test code = Potassium 4.2 3.5-5.1 Lvl) [place] 852652-07-25 02:20:00 Test Item Value Reference Range Interpretation Comments Chloride Lvl (test code = Chloride Lvl) 97 95-109 [place] 852652-07-25 02:20:00 Test Item Value Reference Range Interpretation Comments CO2 (test code = CO2) 26 24-32 [place] 852652-07-25 02:20:00 Test Item Value Reference Range Interpretation Comments Calcium Lvl (test code = Calcium Lvl) 8.7 8.5-10.5 [place] 852652-07-25 02:20:00 Test Item Value Reference Range Interpretation Comments Total Protein (test code = Total 7.0 6.4-8.4 Protein) [place] 852652-07-25 02:20:00 Test Item Value Reference Range Interpretation Comments Albumin Lvl (test code = Albumin Lvl) 3.4 3.5-5.0 [place] 852652-07-25 02:20:00 Test Item Value Reference Range Interpretation Comments ALT (test code = ALT) 18 See_Comment [Auto mated message] The system which [employer] nerated this result transmit lavon reference range : <=65. The reference range was not used to interpr et this result as dionne l/abnormal. [place] 852652-07-25 02:20:00 Test Item Value Reference Range Interpretation Comments AST (test code = AST) 27 See_Comment [Auto mated message] The system which ge nerated this result transmit lavon reference range : <=37. The reference range was not used to interpr et this result as dionne l/abnormal. [place] 852652-07-25 02:20:00 Test Item Value Reference Range Interpretation Comments Alk Phos (test code = Alk Phos) 57 39-136 [facility]2022-07-25 02:20:00 Test Item Value Reference Range Interpretation Comments Bili Total (test code = Bili Total) 1.0 0.2-1.3 [place] 852652-07-25 02:20:00 Test Item Value Reference Range Interpretation Comments AGAP (test code = AGAP) 12.2 10.0-20.0 [place] 852652-07-25 02:20:00 Test Item Value Reference Range Interpretation Comments B/C Ratio (test code = B/C Ratio) 24 1 6-25 [place] 852652-07-25 02:20:00 Test Item Value Reference Range Interpretation Comments Globulin (test code = Globulin) 3.6 2.7-4.2 [place] 852652-07-25 02:20:00 Test Item Value Reference Range Interpretation Comments A/G Ratio (test code = A/G Ratio) 0.9 1 0.7-1.6 [place] 852652-07-25 02:20:00 Test Item Value Reference Range Interpretation Comments eGFR (test code = eGFR) 62 [place] 778932-07-25 02:20:00 Test Item Value Reference Range Interpretation Comments WBC (test code = WBC) 8.6 3.7-10.4 [place] 778932-07-25 02:20:00 Test Item Value Reference Range Interpretation Comments RBC (test code = RBC) 3.58 4.20-5.40 [place] 778932-07-25 02:20:00 Test Item Value Reference Range Interpretation Comments Hgb (test code = Hgb) 8.8 12.0-16.0 [place] 778932-07-25 02:20:00 Test Item Value Reference Range Interpretation Comments Hct (test code = Hct) 27.1 36.0-48.0 [place] [address]-07-25 02:20:00 Test Item Value Reference Range Interpretation Comments MCV (test code = MCV) 75.6 80.0-98.0 [place] 778932-07-25 02:20:00 Test Item Value Reference Range Interpretation Comments MCH (test code = MCH) 24.5 pg 27.0-31.0 [place] 778932-07-25 02:20:00 Test Item Value Reference Range Interpretation Comments MCHC (test code = MCHC) 32.4 32.0-36.0 [place] 778932-07-25 02:20:00 Test Item Value Reference Range Interpretation Comments RDW (test code = RDW) 21.1 11.5-14.5 [place] 778932-07-25 02:20:00 Test Item Value Reference Range Interpretation Comments Platelet (test code = Platelet) 297 133-450 [place] 778932-07-25 02:20:00 Test Item Value Reference Range Interpretation Comments MPV (test code = MPV) 7.5 7.4-10.4 [place] 778932-07-25 02:20:00 Test Item Value Reference Range Interpretation Comments Segs (test code = Segs) 85.8 45.0-75.0 [place] 778932-07-25 02:20:00 Test Item Value Reference Range Interpretation Comments Lymphocytes (test code = Lymphocytes) 8.5 20.0-40.0 [place] 778932-07-25 02:20:00 Test Item Value Reference Range Interpretation Comments Monocytes (test code = Monocytes) 5.0 2.0-12.0 [place] 778932-07-25 02:20:00 Test Item Value Reference Range Interpretation Comments Eosinophils (test code = 0.3 See_Comment [A utomated message] The Eosinophils) system which ge nerated this result tra nsmitted reference range : <=4.0. The reference r hugo was not used to int erpret this result as normal/abnormal . [facility] CenterZeydzpgUHTPFNWJYN7437-05-92 02:20:00 Test Item Value Reference Range Interpretation Comments Basophils (test code = 0.4 See_Comment [Aut omated message] The Basophils) system which ge nerated this result tra nsmitted reference range : <=1.0. The reference r hugo was not used to int erpret this result as normal/abnormal . [place] 778932-07-25 02:20:00 Test Item Value Reference Range Interpretation Comments Neutrophils # (test code = Neutrophils 7.4 1.5-8.1 #) [place] 778932-07-25 02:20:00 Test Item Value Reference Range Interpretation Comments Lymphocytes # (test code = Lymphocytes 0.7 1.0-5.5 #) [facility] CenterRifimymHMKLHVEWIK5219-78-74 02:20:00 Test Item Value Reference Range Interpretation Comments Monocytes # (test code 0.4 See_Comment [Aut omated message] The = Monocytes #) system which generated this result tra nsmitted reference range : <=0.8. The reference r hugo was not used to int erpret this result as normal/abnormal . [facility] 02:20:00 Test Item Value Reference Range Interpretation Comments Microcyte (test code = 1+ *ABN*(06/12/22 Microcyte) 9:20 PM) [facility] [id number] 02:20:00 Test Item Value Reference Range Interpretation Comments HS Troponin I (test code = HS Troponin 52 I) [facility] [id number] 02:20:00 Test Item Value Reference Range Interpretation Comments Glucose Lvl (test code = Glucose Lvl) 103 70-99 [facility]2022-07-25 02:20:00 Test Item Value Reference Range Interpretation Comments BUN (test code = BUN) 22 7-22 [facility]2022-07-25 02:20:00 Test Item Value Reference Range Interpretation Comments Creatinine Lvl (test code = Creatinine 0.90 0.50-1.40 Lvl) [facility] [id number] 02:20:00 Test Item Value Reference Range Interpretation Comments Sodium Lvl (test code = Sodium Lvl) 131 135-145 [facility] [id number] 02:20:00 Test Item Value Reference Range Interpretation Comments Potassium Lvl (test code = Potassium 4.2 3.5-5.1 Lvl) [facility] [id number] 02:20:00 Test Item Value Reference Range Interpretation Comments Chloride Lvl (test code = Chloride Lvl) 97 95-109 [facility] [id number] 02:20:00 Test Item Value Reference Range Interpretation Comments CO2 (test code = CO2) 26 24-32 [facility] [id number] 02:20:00 Test Item Value Reference Range Interpretation Comments Calcium Lvl (test code = Calcium Lvl) 8.7 8.5-10.5 [facility] [id number] 02:20:00 Test Item Value Reference Range Interpretation Comments Total Protein (test code = Total 7.0 6.4-8.4 Protein) [facility]2022-07-25 02:20:00 Test Item Value Reference Range Interpretation Comments Albumin Lvl (test code = Albumin Lvl) 3.4 3.5-5.0 [facility] [id number] 02:20:00 Test Item Value Reference Range Interpretation Comments ALT (test code = ALT) 18 See_Comment [Auto mated message] The system which ge nerated this result transmit lavon reference range : <=65. The reference range was not used to interpr et this result as dionne l/abnormal. [facility] [id number] 02:20:00 Test Item Value Reference Range Interpretation Comments AST (test code = AST) 27 See_Comment [Auto mated message] The system which ge nerated this result transmit lavon reference range : <=37. The reference range was not used to interpr et this result as dionne l/abnormal. [facility] [id number] 02:20:00 Test Item Value Reference Range Interpretation Comments Alk Phos (test code = Alk Phos) 57 39-136 [facility] [id number] 02:20:00 Test Item Value Reference Range Interpretation Comments Bili Total (test code = Bili Total) 1.0 0.2-1.3 [facility] [id number] 02:20:00 Test Item Value Reference Range Interpretation Comments AGAP (test code = AGAP) 12.2 10.0-20.0 [facility] [id number] 02:20:00 Test Item Value Reference Range Interpretation Comments B/C Ratio (test code = B/C Ratio) 24 1 6-25 [facility] [id number] 02:20:00 Test Item Value Reference Range Interpretation Comments Globulin (test code = Globulin) 3.6 2.7-4.2 [facility] [id number] 02:20:00 Test Item Value Reference Range Interpretation Comments A/G Ratio (test code = A/G Ratio) 0.9 1 0.7-1.6 [facility]2022-07-25 02:20:00 Test Item Value Reference Range Interpretation Comments eGFR (test code = eGFR) 62 [facility]JtwapdeYOCOWZNCGJ2429-36-61 02:20:00 Test Item Value Reference Range Interpretation Comments WBC (test code = WBC) 8.6 3.7-10.4 [facility] CenterAfwdxxwDEMXFHKNNU9577-24-87 02:20:00 Test Item Value Reference Range Interpretation Comments RBC (test code = RBC) 3.58 4.20-5.40 [place] 778932-07-25 02:20:00 Test Item Value Reference Range Interpretation Comments Hgb (test code = Hgb) 8.8 12.0-16.0 [place] 778932-07-25 02:20:00 Test Item Value Reference Range Interpretation Comments Hct (test code = Hct) 27.1 36.0-48.0 [facility] CenterVbnpqmdQKQRFWDCNW2146-74-20 02:20:00 Test Item Value Reference Range Interpretation Comments MCV (test code = MCV) 75.6 80.0-98.0 [facility] CenterWwkwhpiGABAQSCRLO1034-99-19 02:20:00 Test Item Value Reference Range Interpretation Comments MCH (test code = MCH) 24.5 pg 27.0-31.0 [facility] CenterUcglugpKAPBAXCMIH6044-55-02 02:20:00 Test Item Value Reference Range Interpretation Comments MCHC (test code = MCHC) 32.4 32.0-36.0 [facility] CenterUnnqhvwXVHAIFMIAQ1770-48-34 02:20:00 Test Item Value Reference Range Interpretation Comments RDW (test code = RDW) 21.1 11.5-14.5 [place] 778932-07-25 02:20:00 Test Item Value Reference Range Interpretation Comments Platelet (test code = Platelet) 297 133-450 [facility] CenterJwwunmbNGLIBULWMV9029-23-83 02:20:00 Test Item Value Reference Range Interpretation Comments MPV (test code = MPV) 7.5 7.4-10.4 [place] 778932-07-25 02:20:00 Test Item Value Reference Range Interpretation Comments Segs (test code = Segs) 85.8 45.0-75.0 [facility] CenterFcgfjdoDWFIPRFTNV7977-65-73 02:20:00 Test Item Value Reference Range Interpretation Comments Lymphocytes (test code = Lymphocytes) 8.5 20.0-40.0 [facility] CenterJqtkamgLXULDGYJPA3994-96-39 02:20:00 Test Item Value Reference Range Interpretation Comments Monocytes (test code = Monocytes) 5.0 2.0-12.0 [facility] CenterIveqmcfBOLAWUYPPZ4411-45-56 02:20:00 Test Item Value Reference Range Interpretation Comments Eosinophils (test code = 0.3 See_Comment [A utomated message] The Eosinophils) system which ge nerated this result tra nsmitted reference range : <=4.0. The reference r hugo was not used to int erpret this result as normal/abnormal . [facility] CenterAexhgsqLQGNBJHNPD9761-29-40 02:20:00 Test Item Value Reference Range Interpretation Comments Basophils (test code = 0.4 See_Comment [Aut omated message] The Basophils) system which ge nerated this result tra nsmitted reference range : <=1.0. The reference r hugo was not used to int erpret this result as normal/abnormal . [facility] CenterTtoeciyKCBBNCPVSV1122-11-77 02:20:00 Test Item Value Reference Range Interpretation Comments Neutrophils # (test code = Neutrophils 7.4 1.5-8.1 #) [facility] CenterBwjysylLVCQQRXDGH2495-52-65 02:20:00 Test Item Value Reference Range Interpretation Comments Lymphocytes # (test code = Lymphocytes 0.7 1.0-5.5 #) [facility] CenterOizjxaxUDXOEUMBZB6702-12-12 02:20:00 Test Item Value Reference Range Interpretation Comments Monocytes # (test code 0.4 See_Comment [Aut omated message] The = Monocytes #) system which generated this result tra nsmitted reference range : <=0.8. The reference r hugo was not used to int erpret this result as normal/abnormal . [facility] CenterIsgfgbaVNVFPRQYBF5940-25-82 02:20:00 Test Item Value Reference Range Interpretation Comments Microcyte (test code = 1+ *ABN*(06/12/22 Microcyte) 9:20 PM) [facility]ARD[facility] [id number] 02:20:00 Test Item Value Reference Range Interpretation Comments HS Troponin I (test code = HS Troponin 52 I) [facility]villeCHEM [id number] 02:20:00 Test Item Value Reference Range Interpretation Comments Glucose Lvl (test code = Glucose Lvl) 103 70-99 [place] 852652-07-25 02:20:00 Test Item Value Reference Range Interpretation Comments BUN (test code = BUN) 22 7-22 [place] 852652-07-25 02:20:00 Test Item Value Reference Range Interpretation Comments Creatinine Lvl (test code = Creatinine 0.90 0.50-1.40 Lvl) [place] 852652-07-25 02:20:00 Test Item Value Reference Range Interpretation Comments Sodium Lvl (test code = Sodium Lvl) 131 135-145 [place] 852652-07-25 02:20:00 Test Item Value Reference Range Interpretation Comments Potassium Lvl (test code = Potassium 4.2 3.5-5.1 Lvl) [address]07-25 02:20:00 Test Item Value Reference Range Interpretation Comments Chloride Lvl (test code = Chloride Lvl) 97 95-109 [place] 852652-07-25 02:20:00 Test Item Value Reference Range Interpretation Comments CO2 (test code = CO2) 26 24-32 [place] 852652-07-25 02:20:00 Test Item Value Reference Range Interpretation Comments Calcium Lvl (test code = Calcium Lvl) 8.7 8.5-10.5 [place] [address]-07-25 02:20:00 Test Item Value Reference Range Interpretation Comments Total Protein (test code = Total 7.0 6.4-8.4 Protein) [place] 852652-07-25 02:20:00 Test Item Value Reference Range Interpretation Comments Albumin Lvl (test code = Albumin Lvl) 3.4 3.5-5.0 [place] 852652-07-25 02:20:00 Test Item Value Reference Range Interpretation Comments ALT (test code = ALT) 18 See_Comment [Auto mated message] The system which ge nerated this result transmit lavon reference range : <=65. The reference range was not used to interpr et this result as dionne l/abnormal. [place] 852652-07-25 02:20:00 Test Item Value Reference Range Interpretation Comments AST (test code = AST) 27 See_Comment [Auto mated message] The system which ge nerated this result transmit lavon reference range : <=37. The reference range was not used to interpr et this result as dionne l/abnormal. [place] 852652-07-25 02:20:00 Test Item Value Reference Range Interpretation Comments Alk Phos (test code = Alk Phos) 57 39-136 [place] 852652-07-25 02:20:00 Test Item Value Reference Range Interpretation Comments Bili Total (test code = Bili Total) 1.0 0.2-1.3 [place] 852652-07-25 02:20:00 Test Item Value Reference Range Interpretation Comments AGAP (test code = AGAP) 12.2 10.0-20.0 [place] 852652-07-25 02:20:00 Test Item Value Reference Range Interpretation Comments B/C Ratio (test code = B/C Ratio) 24 1 6-25 [place] [address]-07-25 02:20:00 Test Item Value Reference Range Interpretation Comments Globulin (test code = Globulin) 3.6 2.7-4.2 [place] 852652-07-25 02:20:00 Test Item Value Reference Range Interpretation Comments A/G Ratio (test code = A/G Ratio) 0.9 1 0.7-1.6 [place] 852652-07-25 02:20:00 Test Item Value Reference Range Interpretation Comments eGFR (test code = eGFR) 62 [place] 778932-07-25 02:20:00 Test Item Value Reference Range Interpretation Comments WBC (test code = WBC) 8.6 3.7-10.4 [place] 778932-07-25 02:20:00 Test Item Value Reference Range Interpretation Comments RBC (test code = RBC) 3.58 4.20-5.40 [place] 778932-07-25 02:20:00 Test Item Value Reference Range Interpretation Comments Hgb (test code = Hgb) 8.8 12.0-16.0 [place] [address]-07-25 02:20:00 Test Item Value Reference Range Interpretation Comments Hct (test code = Hct) 27.1 36.0-48.0 [place] [address]-07-25 02:20:00 Test Item Value Reference Range Interpretation Comments MCV (test code = MCV) 75.6 80.0-98.0 [place] 778932-07-25 02:20:00 Test Item Value Reference Range Interpretation Comments MCH (test code = MCH) 24.5 pg 27.0-31.0 [facility] CenterWvbtnurQRECRAIXQB6626-50-66 02:20:00 Test Item Value Reference Range Interpretation Comments MCHC (test code = MCHC) 32.4 32.0-36.0 [facility] CenterNigaeysRTIGTCPCII8045-21-47 02:20:00 Test Item Value Reference Range Interpretation Comments RDW (test code = RDW) 21.1 11.5-14.5 [place] 778932-07-25 02:20:00 Test Item Value Reference Range Interpretation Comments Platelet (test code = Platelet) 297 133-450 [facility] CenterWotpratOBOLBNJXJY4281-28-46 02:20:00 Test Item Value Reference Range Interpretation Comments MPV (test code = MPV) 7.5 7.4-10.4 [facility] CenterXtzeyapYPJPAGQTWN3428-41-68 02:20:00 Test Item Value Reference Range Interpretation Comments Segs (test code = Segs) 85.8 45.0-75.0 [place] 778932-07-25 02:20:00 Test Item Value Reference Range Interpretation Comments Lymphocytes (test code = Lymphocytes) 8.5 20.0-40.0 [facility] CenterQftqqslXKCEQVEVFK8087-56-24 02:20:00 Test Item Value Reference Range Interpretation Comments Monocytes (test code = Monocytes) 5.0 2.0-12.0 [facility] CenterZonpueiZHFTXZHBRP9018-67-30 02:20:00 Test Item Value Reference Range Interpretation Comments Eosinophils (test code = 0.3 See_Comment [A utomated message] The Eosinophils) system which ge nerated this result tra nsmitted reference range : <=4.0. The reference r hugo was not used to int erpret this result as normal/abnormal . [place] 778932-07-25 02:20:00 Test Item Value Reference Range Interpretation Comments Basophils (test code = 0.4 See_Comment [Aut omated message] The Basophils) system which ge nerated this result tra nsmitted reference range : <=1.0. The reference r hugo was not used to int erpret this result as normal/abnormal . [place] 778932-07-25 02:20:00 Test Item Value Reference Range Interpretation Comments Neutrophils # (test code = Neutrophils 7.4 1.5-8.1 #) [facility]PDT[facility]76-29 02:20:00 Test Item Value Reference Range Interpretation Comments Lymphocytes # (test code = Lymphocytes 0.7 1.0-5.5 #) [facility] CenterFuxgmzmXFHVTETTIT5455-72-92 02:20:00 Test Item Value Reference Range Interpretation Comments Monocytes # (test code 0.4 See_Comment [Aut omated message] The = Monocytes #) system which generated this result tra nsmitted reference range : <=0.8. The reference r hugo was not used to int erpret this result as normal/abnormal . [facility] CenterTteszhmHWSHXXNARR2112-37-88 02:20:00 Test Item Value Reference Range Interpretation Comments Microcyte (test code = 1+ *ABN*(06/12/22 Microcyte) 9:20 PM) [facility] [id number] 02:20:00 Test Item Value Reference Range Interpretation Comments HS Troponin I (test code = HS Troponin 52 I) [facility]2022-07-25 02:20:00 Test Item Value Reference Range Interpretation Comments Glucose Lvl (test code = Glucose Lvl) 103 70-99 [facility]2022-07-25 02:20:00 Test Item Value Reference Range Interpretation Comments BUN (test code = BUN) 22 7-22 [facility]2022-07-25 02:20:00 Test Item Value Reference Range Interpretation Comments Creatinine Lvl (test code = Creatinine 0.90 0.50-1.40 Lvl) [facility]2022-07-25 02:20:00 Test Item Value Reference Range Interpretation Comments Sodium Lvl (test code = Sodium Lvl) 131 135-145 [facility]2022-07-25 02:20:00 Test Item Value Reference Range Interpretation Comments Potassium Lvl (test code = Potassium 4.2 3.5-5.1 Lvl) [facility]2022-07-25 02:20:00 Test Item Value Reference Range Interpretation Comments Chloride Lvl (test code = Chloride Lvl) 97 95-109 [facility]2022-07-25 02:20:00 Test Item Value Reference Range Interpretation Comments CO2 (test code = CO2) 26 24-32 [facility] [id number] 02:20:00 Test Item Value Reference Range Interpretation Comments Calcium Lvl (test code = Calcium Lvl) 8.7 8.5-10.5 [facility] [id number] 02:20:00 Test Item Value Reference Range Interpretation Comments Total Protein (test code = Total 7.0 6.4-8.4 Protein) [facility] [id number] 02:20:00 Test Item Value Reference Range Interpretation Comments Albumin Lvl (test code = Albumin Lvl) 3.4 3.5-5.0 [facility] [id number] 02:20:00 Test Item Value Reference Range Interpretation Comments ALT (test code = ALT) 18 See_Comment [Auto mated message] The system which ge nerated this result transmit lavon reference range : <=65. The reference range was not used to interpr et this result as dionne l/abnormal. [facility] [id number] 02:20:00 Test Item Value Reference Range Interpretation Comments AST (test code = AST) 27 See_Comment [Auto mated message] The system which ge nerated this result transmit lavon reference range : <=37. The reference range was not used to interpr et this result as dionne l/abnormal. [facility] [employer] [id number] 02:20:00 Test Item Value Reference Range Interpretation Comments Alk Phos (test code = Alk Phos) 57 39-136 [facility] [employer] [id number] 02:20:00 Test Item Value Reference Range Interpretation Comments Bili Total (test code = Bili Total) 1.0 0.2-1.3 [facility] [id number] 02:20:00 Test Item Value Reference Range Interpretation Comments AGAP (test code = AGAP) 12.2 10.0-20.0 [facility] [employer] [id number] 02:20:00 Test Item Value Reference Range Interpretation Comments B/C Ratio (test code = B/C Ratio) 24 1 6-25 [facility] [id number] 02:20:00 Test Item Value Reference Range Interpretation Comments Globulin (test code = Globulin) 3.6 2.7-4.2 [facility]2022-07-25 02:20:00 Test Item Value Reference Range Interpretation Comments A/G Ratio (test code = A/G Ratio) 0.9 1 0.7-1.6 [facility]2022-07-25 02:20:00 Test Item Value Reference Range Interpretation Comments eGFR (test code = eGFR) 62 [facility] CenterYzjsrpeLQUJRPGZOC0994-29-04 02:20:00 Test Item Value Reference Range Interpretation Comments WBC (test code = WBC) 8.6 3.7-10.4 [place] 778932-07-25 02:20:00 Test Item Value Reference Range Interpretation Comments RBC (test code = RBC) 3.58 4.20-5.40 [place] 778932-07-25 02:20:00 Test Item Value Reference Range Interpretation Comments Hgb (test code = Hgb) 8.8 12.0-16.0 [place] 778932-07-25 02:20:00 Test Item Value Reference Range Interpretation Comments Hct (test code = Hct) 27.1 36.0-48.0 [facility] CenterJyckhjvANSOSIUACE3949-10-03 02:20:00 Test Item Value Reference Range Interpretation Comments MCV (test code = MCV) 75.6 80.0-98.0 [place] 778932-07-25 02:20:00 Test Item Value Reference Range Interpretation Comments MCH (test code = MCH) 24.5 pg 27.0-31.0 [place] 778932-07-25 02:20:00 Test Item Value Reference Range Interpretation Comments MCHC (test code = MCHC) 32.4 32.0-36.0 [place] 778932-07-25 02:20:00 Test Item Value Reference Range Interpretation Comments RDW (test code = RDW) 21.1 11.5-14.5 [place] 778932-07-25 02:20:00 Test Item Value Reference Range Interpretation Comments Platelet (test code = Platelet) 297 133-450 [facility] CenterQmfusrsVVZNTQIJUM3274-21-78 02:20:00 Test Item Value Reference Range Interpretation Comments MPV (test code = MPV) 7.5 7.4-10.4 [place] 778932-07-25 02:20:00 Test Item Value Reference Range Interpretation Comments Segs (test code = Segs) 85.8 45.0-75.0 [facility] CenterGzlwnxzUIGGXDBCZZ7838-23-92 02:20:00 Test Item Value Reference Range Interpretation Comments Lymphocytes (test code = Lymphocytes) 8.5 20.0-40.0 [facility] CenterJavoibuQJYLYIEELP2365-68-28 02:20:00 Test Item Value Reference Range Interpretation Comments Monocytes (test code = Monocytes) 5.0 2.0-12.0 [facility] CenterTwfchbuZGHAJWYHXU0316-49-97 02:20:00 Test Item Value Reference Range Interpretation Comments Eosinophils (test code = 0.3 See_Comment [A utomated message] The Eosinophils) system which ge nerated this result tra nsmitted reference range : <=4.0. The reference r hugo was not used to int erpret this result as normal/abnormal . [facility] CenterMecjfnjOGVUFTADYZ1488-38-91 02:20:00 Test Item Value Reference Range Interpretation Comments Basophils (test code = 0.4 See_Comment [Aut omated message] The Basophils) system which ge nerated this result tra nsmitted reference range : <=1.0. The reference r hugo was not used to int erpret this result as normal/abnormal . [facility] CenterYjpxuwpTPEGQGJFWB0169-82-17 02:20:00 Test Item Value Reference Range Interpretation Comments Neutrophils # (test code = Neutrophils 7.4 1.5-8.1 #) [facility] CenterSefpptjHDPHDFAHAN1166-04-81 02:20:00 Test Item Value Reference Range Interpretation Comments Lymphocytes # (test code = Lymphocytes 0.7 1.0-5.5 #) [facility] CenterRclvygfLKVNGGIDBY8935-64-53 02:20:00 Test Item Value Reference Range Interpretation Comments Monocytes # (test code 0.4 See_Comment [Aut omated message] The = Monocytes #) system which generated this result tra nsmitted reference range : <=0.8. The reference r hugo was not used to int erpret this result as normal/abnormal . [facility] CenterNkpnxjnCTQBILVHRA0376-61-16 02:20:00 Test Item Value Reference Range Interpretation Comments Microcyte (test code = 1+ *ABN*(06/12/22 Microcyte) 9:20 PM) [facility]2022-07-25 02:20:00 Test Item Value Reference Range Interpretation Comments HS Troponin I (test code = HS Troponin 52 I) [place] 852652-07-25 02:20:00 Test Item Value Reference Range Interpretation Comments Glucose Lvl (test code = Glucose Lvl) 103 70-99 [place] 852652-07-25 02:20:00 Test Item Value Reference Range Interpretation Comments BUN (test code = BUN) 22 7-22 [place] 852652-07-25 02:20:00 Test Item Value Reference Range Interpretation Comments Creatinine Lvl (test code = Creatinine 0.90 0.50-1.40 Lvl) [place] 852652-07-25 02:20:00 Test Item Value Reference Range Interpretation Comments Sodium Lvl (test code = Sodium Lvl) 131 135-145 [place] 852652-07-25 02:20:00 Test Item Value Reference Range Interpretation Comments Potassium Lvl (test code = Potassium 4.2 3.5-5.1 Lvl) [place] 852652-07-25 02:20:00 Test Item Value Reference Range Interpretation Comments Chloride Lvl (test code = Chloride Lvl) 97 95-109 [place] 852652-07-25 02:20:00 Test Item Value Reference Range Interpretation Comments CO2 (test code = CO2) 26 24-32 [place] 852652-07-25 02:20:00 Test Item Value Reference Range Interpretation Comments Calcium Lvl (test code = Calcium Lvl) 8.7 8.5-10.5 [place] 852652-07-25 02:20:00 Test Item Value Reference Range Interpretation Comments Total Protein (test code = Total 7.0 6.4-8.4 Protein) [place] 852652-07-25 02:20:00 Test Item Value Reference Range Interpretation Comments Albumin Lvl (test code = Albumin Lvl) 3.4 3.5-5.0 [place] 852652-07-25 02:20:00 Test Item Value Reference Range Interpretation Comments ALT (test code = ALT) 18 See_Comment [Auto mated message] The system which ge nerated this result transmit lavon reference range : <=65. The reference range was not used to interpr et this result as dionne l/abnormal. [place] 852652-07-25 02:20:00 Test Item Value Reference Range Interpretation Comments AST (test code = AST) 27 See_Comment [Auto mated message] The system which ge nerated this result transmit lavon reference range : <=37. The reference range was not used to interpr et this result as dionne l/abnormal. [facility] [id number] 02:20:00 Test Item Value Reference Range Interpretation Comments Alk Phos (test code = Alk Phos) 57 39-136 [facility] [id number] 02:20:00 Test Item Value Reference Range Interpretation Comments Bili Total (test code = Bili Total) 1.0 0.2-1.3 [facility] [id number] 02:20:00 Test Item Value Reference Range Interpretation Comments AGAP (test code = AGAP) 12.2 10.0-20.0 [facility] [id number] 02:20:00 Test Item Value Reference Range Interpretation Comments B/C Ratio (test code = B/C Ratio) 24 1 6-25 [facility] [id number] 02:20:00 Test Item Value Reference Range Interpretation Comments Globulin (test code = Globulin) 3.6 2.7-4.2 [facility] [id number] 02:20:00 Test Item Value Reference Range Interpretation Comments A/G Ratio (test code = A/G Ratio) 0.9 1 0.7-1.6 [facility] [id number] 02:20:00 Test Item Value Reference Range Interpretation Comments eGFR (test code = eGFR) 62 [facility]villeAdqgswcMGHIJBILAO2891-07-66 02:20:00 Test Item Value Reference Range Interpretation Comments WBC (test code = WBC) 8.6 3.7-10.4 [place] 778932-07-25 02:20:00 Test Item Value Reference Range Interpretation Comments RBC (test code = RBC) 3.58 4.20-5.40 [place] 778932-07-25 02:20:00 Test Item Value Reference Range Interpretation Comments Hgb (test code = Hgb) 8.8 12.0-16.0 [facility] GreenvillePazlpdmPRLWGMYISG1016-88-70 02:20:00 Test Item Value Reference Range Interpretation Comments Hct (test code = Hct) 27.1 36.0-48.0 [facility] CenterTtvncodSYGGEHRCBV9446-15-61 02:20:00 Test Item Value Reference Range Interpretation Comments MCV (test code = MCV) 75.6 80.0-98.0 [place] 778932-07-25 02:20:00 Test Item Value Reference Range Interpretation Comments MCH (test code = MCH) 24.5 pg 27.0-31.0 [facility] CenterXxrozdhJXMPMFYGIA0286-22-20 02:20:00 Test Item Value Reference Range Interpretation Comments MCHC (test code = MCHC) 32.4 32.0-36.0 [place] 778932-07-25 02:20:00 Test Item Value Reference Range Interpretation Comments RDW (test code = RDW) 21.1 11.5-14.5 [place] 778932-07-25 02:20:00 Test Item Value Reference Range Interpretation Comments Platelet (test code = Platelet) 297 133-450 [facility] CenterRgmpblvXJUAANNCIM1851-17-33 02:20:00 Test Item Value Reference Range Interpretation Comments MPV (test code = MPV) 7.5 7.4-10.4 [place] 778932-07-25 02:20:00 Test Item Value Reference Range Interpretation Comments Segs (test code = Segs) 85.8 45.0-75.0 [place] 778932-07-25 02:20:00 Test Item Value Reference Range Interpretation Comments Lymphocytes (test code = Lymphocytes) 8.5 20.0-40.0 [place] 778932-07-25 02:20:00 Test Item Value Reference Range Interpretation Comments Monocytes (test code = Monocytes) 5.0 2.0-12.0 [place] 778932-07-25 02:20:00 Test Item Value Reference Range Interpretation Comments Eosinophils (test code = 0.3 See_Comment [A utomated message] The Eosinophils) system which ge nerated this result tra nsmitted reference range : <=4.0. The reference r hugo was not used to int erpret this result as normal/abnormal . [place] 778932-07-25 02:20:00 Test Item Value Reference Range Interpretation Comments Basophils (test code = 0.4 See_Comment [Aut omated message] The Basophils) system which ge nerated this result tra nsmitted reference range : <=1.0. The reference r hugo was not used to int erpret this result as normal/abnormal . [facility] CenterTwpaprsBEJQIYTOUK9310-83-29 02:20:00 Test Item Value Reference Range Interpretation Comments Neutrophils # (test code = Neutrophils 7.4 1.5-8.1 #) [facility] CenterYkjjcmxFBRMVMRFPZ6422-10-09 02:20:00 Test Item Value Reference Range Interpretation Comments Lymphocytes # (test code = Lymphocytes 0.7 1.0-5.5 #) [facility] [id number] 02:20:00 Test Item Value Reference Range Interpretation Comments Monocytes # (test code 0.4 See_Comment [Aut omated message] The = Monocytes #) system which generated this result tra nsmitted reference range : <=0.8. The reference r hugo was not used to int erpret this result as normal/abnormal . [facility]Qdw[facility]hxFUVVGCMNMY3313-36-21 02:20:00 Test Item Value Reference Range Interpretation Comments Microcyte (test code = 1+ *ABN*(06/12/22 Microcyte) 9:20 PM) [facility] [id number] 02:20:00 Test Item Value Reference Range Interpretation Comments HS Troponin I (test code = HS Troponin 52 I) [facility] [id number] 02:20:00 Test Item Value Reference Range Interpretation Comments Glucose Lvl (test code = Glucose Lvl) 103 70-99 [facility]2022-07-25 02:20:00 Test Item Value Reference Range Interpretation Comments BUN (test code = BUN) 22 7-22 [facility]2022-07-25 02:20:00 Test Item Value Reference Range Interpretation Comments Creatinine Lvl (test code = Creatinine 0.90 0.50-1.40 Lvl) [facility] [id number] 02:20:00 Test Item Value Reference Range Interpretation Comments Sodium Lvl (test code = Sodium Lvl) 131 135-145 [facility] [id number] 02:20:00 Test Item Value Reference Range Interpretation Comments Potassium Lvl (test code = Potassium 4.2 3.5-5.1 Lvl) [facility] [id number] 02:20:00 Test Item Value Reference Range Interpretation Comments Chloride Lvl (test code = Chloride Lvl) 97 95-109 [facility]ram[facility] [id number] 02:20:00 Test Item Value Reference Range Interpretation Comments CO2 (test code = CO2) 26 24-32 [facility]Melod[facility]ramN[facility] [id number] 02:20:00 Test Item Value Reference Range Interpretation Comments Calcium Lvl (test code = Calcium Lvl) 8.7 8.5-10.5 [place] 852652-07-25 02:20:00 Test Item Value Reference Range Interpretation Comments Total Protein (test code = Total 7.0 6.4-8.4 Protein) [facility]2022-07-25 02:20:00 Test Item Value Reference Range Interpretation Comments Albumin Lvl (test code = Albumin Lvl) 3.4 3.5-5.0 [place] 852652-07-25 02:20:00 Test Item Value Reference Range Interpretation Comments ALT (test code = ALT) 18 See_Comment [Auto mated message] The system which ge nerated this result transmit lavon reference range : <=65. The reference range was not used to interpr et this result as dionne l/abnormal. [facility] [id number] 02:20:00 Test Item Value Reference Range Interpretation Comments AST (test code = AST) 27 See_Comment [Auto mated message] The system which ge nerated this result transmit lavon reference range : <=37. The reference range was not used to interpr et this result as dionne l/abnormal. [facility] [id number] 02:20:00 Test Item Value Reference Range Interpretation Comments Alk Phos (test code = Alk Phos) 57 39-136 [facility] [id number] 02:20:00 Test Item Value Reference Range Interpretation Comments Bili Total (test code = Bili Total) 1.0 0.2-1.3 [place] 852652-07-25 02:20:00 Test Item Value Reference Range Interpretation Comments AGAP (test code = AGAP) 12.2 10.0-20.0 [facility] [id number] 02:20:00 Test Item Value Reference Range Interpretation Comments B/C Ratio (test code = B/C Ratio) 24 1 6-25 [facility]2022-07-25 02:20:00 Test Item Value Reference Range Interpretation Comments Globulin (test code = Globulin) 3.6 2.7-4.2 [facility] [id number] 02:20:00 Test Item Value Reference Range Interpretation Comments A/G Ratio (test code = A/G Ratio) 0.9 1 0.7-1.6 [facility]2022-07-25 02:20:00 Test Item Value Reference Range Interpretation Comments eGFR (test code = eGFR) 62 [facility] CenterZiouynqBIDQIPKQMP5516-67-90 02:20:00 Test Item Value Reference Range Interpretation Comments WBC (test code = WBC) 8.6 3.7-10.4 [facility] C[id number] 02:20:00 Test Item Value Reference Range Interpretation Comments RBC (test code = RBC) 3.58 4.20-5.40 [facility] CenterKkzdwxwDPYWSAQZHF3707-26-95 02:20:00 Test Item Value Reference Range Interpretation Comments Hgb (test code = Hgb) 8.8 12.0-16.0 [facility] CenterFufhnvpZJWITMXORR8123-19-36 02:20:00 Test Item Value Reference Range Interpretation Comments Hct (test code = Hct) 27.1 36.0-48.0 [facility] CenterHapofbmVFIBNRUGKP5353-96-87 02:20:00 Test Item Value Reference Range Interpretation Comments MCV (test code = MCV) 75.6 80.0-98.0 [facility] CenterWpiiugnWQVQEIKVEQ3701-69-26 02:20:00 Test Item Value Reference Range Interpretation Comments MCH (test code = MCH) 24.5 pg 27.0-31.0 [facility] CenterEiqvdkcGLBSUWVDGV8268-11-44 02:20:00 Test Item Value Reference Range Interpretation Comments MCHC (test code = MCHC) 32.4 32.0-36.0 [place] 778932-07-25 02:20:00 Test Item Value Reference Range Interpretation Comments RDW (test code = RDW) 21.1 11.5-14.5 [place] 778932-07-25 02:20:00 Test Item Value Reference Range Interpretation Comments Platelet (test code = Platelet) 297 133-450 [facility] CenterDvumtlnSUGZHQDBCN7513-49-72 02:20:00 Test Item Value Reference Range Interpretation Comments MPV (test code = MPV) 7.5 7.4-10.4 [place] 778932-07-25 02:20:00 Test Item Value Reference Range Interpretation Comments Segs (test code = Segs) 85.8 45.0-75.0 [place] 778932-07-25 02:20:00 Test Item Value Reference Range Interpretation Comments Lymphocytes (test code = Lymphocytes) 8.5 20.0-40.0 [place] 778932-07-25 02:20:00 Test Item Value Reference Range Interpretation Comments Monocytes (test code = Monocytes) 5.0 2.0-12.0 [place] 778932-07-25 02:20:00 Test Item Value Reference Range Interpretation Comments Eosinophils (test code = 0.3 See_Comment [A utomated message] The Eosinophils) system which ge nerated this result tra nsmitted reference range : <=4.0. The reference r hugo was not used to int erpret this result as normal/abnormal . [place] 778932-07-25 02:20:00 Test Item Value Reference Range Interpretation Comments Basophils (test code = 0.4 See_Comment [Aut omated message] The Basophils) system which ge nerated this result tra nsmitted reference range : <=1.0. The reference r hugo was not used to int erpret this result as normal/abnormal . [place] 778932-07-25 02:20:00 Test Item Value Reference Range Interpretation Comments Neutrophils # (test code = Neutrophils 7.4 1.5-8.1 #) [place] 778932-07-25 02:20:00 Test Item Value Reference Range Interpretation Comments Lymphocytes # (test code = Lymphocytes 0.7 1.0-5.5 #) [place] [address]-07-25 02:20:00 Test Item Value Reference Range Interpretation Comments Monocytes # (test code 0.4 See_Comment [Aut omated message] The = Monocytes #) system which generated this result tra nsmitted reference range : <=0.8. The reference r hugo was not used to int erpret this result as normal/abnormal . [place] 778932-07-25 02:20:00 Test Item Value Reference Range Interpretation Comments Microcyte (test code = 1+ *ABN*(7/24/22 Microcyte) 9:20 PM) [facility] [id number] 02:20:00 Test Item Value Reference Range Interpretation Comments HS Troponin I (test code = HS Troponin 52 I) [facility] [id number] 02:20:00 Test Item Value Reference Range Interpretation Comments Glucose Lvl (test code = Glucose Lvl) 103 70-99 [facility]2022-07-25 02:20:00 Test Item Value Reference Range Interpretation Comments BUN (test code = BUN) 22 7- [facility]2022-07-25 02:20:00 Test Item Value Reference Range Interpretation Comments Creatinine Lvl (test code = Creatinine 0.90 0.50-1.40 Lvl) [facility]2022-07-25 02:20:00 Test Item Value Reference Range Interpretation Comments Sodium Lvl (test code = Sodium Lvl) 131 135-145 [facility]2022-07-25 02:20:00 Test Item Value Reference Range Interpretation Comments Potassium Lvl (test code = Potassium 4.2 3.5-5.1 Lvl) [facility]2022-07-25 02:20:00 Test Item Value Reference Range Interpretation Comments Chloride Lvl (test code = Chloride Lvl) 97 95-109 [facility]2022-07-25 02:20:00 Test Item Value Reference Range Interpretation Comments CO2 (test code = CO2) 26 24-32 [facility]2022-07-25 02:20:00 Test Item Value Reference Range Interpretation Comments Calcium Lvl (test code = Calcium Lvl) 8.7 8.5-10.5 [facility]2022-07-25 02:20:00 Test Item Value Reference Range Interpretation Comments Total Protein (test code = Total 7.0 6.4-8.4 Protein) [facility]2022-07-25 02:20:00 Test Item Value Reference Range Interpretation Comments Albumin Lvl (test code = Albumin Lvl) 3.4 3.5-5.0 [facility]2022-07-25 02:20:00 Test Item Value Reference Range Interpretation Comments ALT (test code = ALT) 18 See_Comment [Auto mated message] The system which ge nerated this result transmit lavon reference range : <=65. The reference range was not used to interpr et this result as dionne l/abnormal. [place] 852652-07-25 02:20:00 Test Item Value Reference Range Interpretation Comments AST (test code = AST) 27 See_Comment [Auto mated message] The system which ge nerated this result transmit lavon reference range : <=37. The reference range was not used to interpr et this result as dionne l/abnormal. [place] 852652-07-25 02:20:00 Test Item Value Reference Range Interpretation Comments Alk Phos (test code = Alk Phos) 57 39-136 [place] 852652-07-25 02:20:00 Test Item Value Reference Range Interpretation Comments Bili Total (test code = Bili Total) 1.0 0.2-1.3 [place] 852652-07-25 02:20:00 Test Item Value Reference Range Interpretation Comments AGAP (test code = AGAP) 12.2 10.0-20.0 [place] 852652-07-25 02:20:00 Test Item Value Reference Range Interpretation Comments B/C Ratio (test code = B/C Ratio) 24 1 6-25 [place] 852652-07-25 02:20:00 Test Item Value Reference Range Interpretation Comments Globulin (test code = Globulin) 3.6 2.7-4.2 [place] 852652-07-25 02:20:00 Test Item Value Reference Range Interpretation Comments A/G Ratio (test code = A/G Ratio) 0.9 1 0.7-1.6 [place] 852652-07-25 02:20:00 Test Item Value Reference Range Interpretation Comments eGFR (test code = eGFR) 62 [place] 778932-07-25 02:20:00 Test Item Value Reference Range Interpretation Comments WBC (test code = WBC) 8.6 3.7-10.4 [place] 778932-07-25 02:20:00 Test Item Value Reference Range Interpretation Comments RBC (test code = RBC) 3.58 4.20-5.40 [place] 778932-07-25 02:20:00 Test Item Value Reference Range Interpretation Comments Hgb (test code = Hgb) 8.8 12.0-16.0 [place] 778932-07-25 02:20:00 Test Item Value Reference Range Interpretation Comments Hct (test code = Hct) 27.1 36.0-48.0 [place] 778932-07-25 02:20:00 Test Item Value Reference Range Interpretation Comments MCV (test code = MCV) 75.6 80.0-98.0 [place] 778932-07-25 02:20:00 Test Item Value Reference Range Interpretation Comments MCH (test code = MCH) 24.5 pg 27.0-31.0 [place] 778932-07-25 02:20:00 Test Item Value Reference Range Interpretation Comments MCHC (test code = MCHC) 32.4 32.0-36.0 [place] 778932-07-25 02:20:00 Test Item Value Reference Range Interpretation Comments RDW (test code = RDW) 21.1 11.5-14.5 [place] 778932-07-25 02:20:00 Test Item Value Reference Range Interpretation Comments Platelet (test code = Platelet) 297 133-450 [facility] CenterSyuwoviWIMJTABZEW1522-97-59 02:20:00 Test Item Value Reference Range Interpretation Comments MPV (test code = MPV) 7.5 7.4-10.4 [place] 778932-07-25 02:20:00 Test Item Value Reference Range Interpretation Comments Segs (test code = Segs) 85.8 45.0-75.0 [place] 778932-07-25 02:20:00 Test Item Value Reference Range Interpretation Comments Lymphocytes (test code = Lymphocytes) 8.5 20.0-40.0 [place] 778932-07-25 02:20:00 Test Item Value Reference Range Interpretation Comments Monocytes (test code = Monocytes) 5.0 2.0-12.0 [place] 778932-07-25 02:20:00 Test Item Value Reference Range Interpretation Comments Eosinophils (test code = 0.3 See_Comment [A utomated message] The Eosinophils) system which ge nerated this result tra nsmitted reference range : <=4.0. The reference r hugo was not used to int erpret this result as normal/abnormal . [place] 778932-07-25 02:20:00 Test Item Value Reference Range Interpretation Comments Basophils (test code = 0.4 See_Comment [Aut omated message] The Basophils) system which ge nerated this result tra nsmitted reference range : <=1.0. The reference r hugo was not used to int erpret this result as normal/abnormal . [facility] C[id number] 02:20:00 Test Item Value Reference Range Interpretation Comments Neutrophils # (test code = Neutrophils 7.4 1.5-8.1 #) [facility] CenterJbrjnqeVXILUQBZBZ2401-57-69 02:20:00 Test Item Value Reference Range Interpretation Comments Lymphocytes # (test code = Lymphocytes 0.7 1.0-5.5 #) [facility] CenterUqltqrnOILMAUFPTX9640-10-33 02:20:00 Test Item Value Reference Range Interpretation Comments Monocytes # (test code 0.4 See_Comment [Aut omated message] The = Monocytes #) system which generated this result tra nsmitted reference range : <=0.8. The reference r hugo was not used to int erpret this result as normal/abnormal . [facility] CenterFjvzyqpUBSXLTYIVS5261-15-65 02:20:00 Test Item Value Reference Range Interpretation Comments Microcyte (test code = 1+ *ABN*(06/12/22 Microcyte) 9:20 PM) [facility] [id number] 02:20:00 Test Item Value Reference Range Interpretation Comments HS Troponin I (test code = HS Troponin 52 I) [facility] [id number] 02:20:00 Test Item Value Reference Range Interpretation Comments Glucose Lvl (test code = Glucose Lvl) 103 70-99 [facility] [id number] 02:20:00 Test Item Value Reference Range Interpretation Comments BUN (test code = BUN) 22 7-22 [facility] [id number] 02:20:00 Test Item Value Reference Range Interpretation Comments Creatinine Lvl (test code = Creatinine 0.90 0.50-1.40 Lvl) [facility]2022-07-25 02:20:00 Test Item Value Reference Range Interpretation Comments Sodium Lvl (test code = Sodium Lvl) 131 135-145 [facility] [id number] 02:20:00 Test Item Value Reference Range Interpretation Comments Potassium Lvl (test code = Potassium 4.2 3.5-5.1 Lvl) [facility] [id number] 02:20:00 Test Item Value Reference Range Interpretation Comments Chloride Lvl (test code = Chloride Lvl) 97 95-109 [place] 852652-07-25 02:20:00 Test Item Value Reference Range Interpretation Comments CO2 (test code = CO2) 26 24-32 [place] 852652-07-25 02:20:00 Test Item Value Reference Range Interpretation Comments Calcium Lvl (test code = Calcium Lvl) 8.7 8.5-10.5 [facility]Mel[facility]ramEM[place] [id number] 02:20:00 Test Item Value Reference Range Interpretation Comments Total Protein (test code = Total 7.0 6.4-8.4 Protein) [place] 852652-07-25 02:20:00 Test Item Value Reference Range Interpretation Comments Albumin Lvl (test code = Albumin Lvl) 3.4 3.5-5.0 [facility] [id number] 02:20:00 Test Item Value Reference Range Interpretation Comments ALT (test code = ALT) 18 See_Comment [Auto mated message] The system which ge nerated this result transmit lavon reference range : <=65. The reference range was not used to interpr et this result as dionne l/abnormal. [facility] [id number] 02:20:00 Test Item Value Reference Range Interpretation Comments AST (test code = AST) 27 See_Comment [Auto mated message] The system which ge nerated this result transmit lavon reference range : <=37. The reference range was not used to interpr et this result as dionne l/abnormal. [facility] [id number] 02:20:00 Test Item Value Reference Range Interpretation Comments Alk Phos (test code = Alk Phos) 57 39-136 [facility] [id number] 02:20:00 Test Item Value Reference Range Interpretation Comments Bili Total (test code = Bili Total) 1.0 0.2-1.3 [facility] [id number] 02:20:00 Test Item Value Reference Range Interpretation Comments AGAP (test code = AGAP) 12.2 10.0-20.0 [place] 852652-07-25 02:20:00 Test Item Value Reference Range Interpretation Comments B/C Ratio (test code = B/C Ratio) 24 1 6-25 [place] 852652-07-25 02:20:00 Test Item Value Reference Range Interpretation Comments Globulin (test code = Globulin) 3.6 2.7-4.2 [place] 852652-07-25 02:20:00 Test Item Value Reference Range Interpretation Comments A/G Ratio (test code = A/G Ratio) 0.9 1 0.7-1.6 [place] 852652-07-25 02:20:00 Test Item Value Reference Range Interpretation Comments eGFR (test code = eGFR) 62 [place] 778932-07-25 02:20:00 Test Item Value Reference Range Interpretation Comments WBC (test code = WBC) 8.6 3.7-10.4 [place] 778932-07-25 02:20:00 Test Item Value Reference Range Interpretation Comments RBC (test code = RBC) 3.58 4.20-5.40 [place] 778932-07-25 02:20:00 Test Item Value Reference Range Interpretation Comments Hgb (test code = Hgb) 8.8 12.0-16.0 [place] 778932-07-25 02:20:00 Test Item Value Reference Range Interpretation Comments Hct (test code = Hct) 27.1 36.0-48.0 [place] 778932-07-25 02:20:00 Test Item Value Reference Range Interpretation Comments MCV (test code = MCV) 75.6 80.0-98.0 [place] 778932-07-25 02:20:00 Test Item Value Reference Range Interpretation Comments MCH (test code = MCH) 24.5 pg 27.0-31.0 [place] 778932-07-25 02:20:00 Test Item Value Reference Range Interpretation Comments MCHC (test code = MCHC) 32.4 32.0-36.0 [place] 778932-07-25 02:20:00 Test Item Value Reference Range Interpretation Comments RDW (test code = RDW) 21.1 11.5-14.5 [place] 778932-07-25 02:20:00 Test Item Value Reference Range Interpretation Comments Platelet (test code = Platelet) 297 133-450 [facility] CenterHkjcxmaRCPPYPFVSA2917-55-09 02:20:00 Test Item Value Reference Range Interpretation Comments MPV (test code = MPV) 7.5 7.4-10.4 [place] 778932-07-25 02:20:00 Test Item Value Reference Range Interpretation Comments Segs (test code = Segs) 85.8 45.0-75.0 [place] 778932-07-25 02:20:00 Test Item Value Reference Range Interpretation Comments Lymphocytes (test code = Lymphocytes) 8.5 20.0-40.0 [place] 778932-07-25 02:20:00 Test Item Value Reference Range Interpretation Comments Monocytes (test code = Monocytes) 5.0 2.0-12.0 [place] 778932-07-25 02:20:00 Test Item Value Reference Range Interpretation Comments Eosinophils (test code = 0.3 See_Comment [A utomated message] The Eosinophils) system which ge nerated this result tra nsmitted reference range : <=4.0. The reference r hugo was not used to int erpret this result as normal/abnormal . [place] 778932-07-25 02:20:00 Test Item Value Reference Range Interpretation Comments Basophils (test code = 0.4 See_Comment [Aut omated message] The Basophils) system which ge nerated this result tra nsmitted reference range : <=1.0. The reference r hugo was not used to int erpret this result as normal/abnormal . [facility] CenterGynglziAALOVIADMM2323-69-11 02:20:00 Test Item Value Reference Range Interpretation Comments Neutrophils # (test code = Neutrophils 7.4 1.5-8.1 #) [place] 778932-07-25 02:20:00 Test Item Value Reference Range Interpretation Comments Lymphocytes # (test code = Lymphocytes 0.7 1.0-5.5 #) [place] 778932-07-25 02:20:00 Test Item Value Reference Range Interpretation Comments Monocytes # (test code 0.4 See_Comment [Aut omated message] The = Monocytes #) system which generated this result tra nsmitted reference range : <=0.8. The reference r hugo was not used to int erpret this result as normal/abnormal . [facility] GreenvilleYvxyjrlCZVNTGQEEY0100-27-24 02:20:00 Test Item Value Reference Range Interpretation Comments Microcyte (test code = 1+ *ABN*(06/12/22 Microcyte) 9:20 PM) [facility] [id number] 02:20:00 Test Item Value Reference Range Interpretation Comments HS Troponin I (test code = HS Troponin 52 I) [facility] [id number] 02:20:00 Test Item Value Reference Range Interpretation Comments Glucose Lvl (test code = Glucose Lvl) 103 70-99 [facility]2022-07-25 02:20:00 Test Item Value Reference Range Interpretation Comments BUN (test code = BUN) 22 06-10 [facility]2022-07-25 02:20:00 Test Item Value Reference Range Interpretation Comments Creatinine Lvl (test code = Creatinine 0.90 0.50-1.40 Lvl) [facility]2022-07-25 02:20:00 Test Item Value Reference Range Interpretation Comments Sodium Lvl (test code = Sodium Lvl) 131 135-145 [facility]2022-07-25 02:20:00 Test Item Value Reference Range Interpretation Comments Potassium Lvl (test code = Potassium 4.2 3.5-5.1 Lvl) [facility]2022-07-25 02:20:00 Test Item Value Reference Range Interpretation Comments Chloride Lvl (test code = Chloride Lvl) 97 95-109 [facility]2022-07-25 02:20:00 Test Item Value Reference Range Interpretation Comments CO2 (test code = CO2) 24-32 [facility]2022-07-25 02:20:00 Test Item Value Reference Range Interpretation Comments Calcium Lvl (test code = Calcium Lvl) 8.7 8.5-10.5 [facility]2022-07-25 02:20:00 Test Item Value Reference Range Interpretation Comments Total Protein (test code = Total 7.0 6.4-8.4 Protein) [facility]2022-07-25 02:20:00 Test Item Value Reference Range Interpretation Comments Albumin Lvl (test code = Albumin Lvl) 3.4 3.5-5.0 [facility]2022-07-25 02:20:00 Test Item Value Reference Range Interpretation Comments ALT (test code = ALT) 18 See_Comment [Auto mated message] The system which ge nerated this result transmit lavon reference range : <=65. The reference range was not used to interpr et this result as dionne l/abnormal. [facility] [id number] 02:20:00 Test Item Value Reference Range Interpretation Comments AST (test code = AST) 27 See_Comment [Auto mated message] The system which ge nerated this result transmit lavon reference range : <=37. The reference range was not used to interpr et this result as dionne l/abnormal. [facility] [employer] [id number] 02:20:00 Test Item Value Reference Range Interpretation Comments Alk Phos (test code = Alk Phos) 57 39-136 [facility] [id number] 02:20:00 Test Item Value Reference Range Interpretation Comments Bili Total (test code = Bili Total) 1.0 0.2-1.3 [facility] [id number] 02:20:00 Test Item Value Reference Range Interpretation Comments AGAP (test code = AGAP) 12.2 10.0-20.0 [facility] [id number] 02:20:00 Test Item Value Reference Range Interpretation Comments B/C Ratio (test code = B/C Ratio) 24 1 6-25 [facility] [id number] 02:20:00 Test Item Value Reference Range Interpretation Comments Globulin (test code = Globulin) 3.6 2.7-4.2 [facility] [id number] 02:20:00 Test Item Value Reference Range Interpretation Comments A/G Ratio (test code = A/G Ratio) 0.9 1 0.7-1.6 [facility] [id number] 02:20:00 Test Item Value Reference Range Interpretation Comments eGFR (test code = eGFR) 62 [facility] TexasCqlfokjNEDCBVHGYF0158-32-80 02:20:00 Test Item Value Reference Range Interpretation Comments WBC (test code = WBC) 8.6 3.7-10.4 [facility] TexasRxthsgeCHOPBTGKCV6653-66-41 02:20:00 Test Item Value Reference Range Interpretation Comments RBC (test code = RBC) 3.58 4.20-5.40 [facility]QvajndjFXUBXBLOSL4037-06-88 02:20:00 Test Item Value Reference Range Interpretation Comments Hgb (test code = Hgb) 8.8 12.0-16.0 [facility] CenterQgonitcWEPHHUPRFX7048-62-37 02:20:00 Test Item Value Reference Range Interpretation Comments Hct (test code = Hct) 27.1 36.0-48.0 [facility] CenterNknkzbhYMIQOLVKFS6487-31-55 02:20:00 Test Item Value Reference Range Interpretation Comments MCV (test code = MCV) 75.6 80.0-98.0 [facility] CenterXialdkqYALOPOCYCB7755-90-13 02:20:00 Test Item Value Reference Range Interpretation Comments MCH (test code = MCH) 24.5 pg 27.0-31.0 [facility] CenterKcgrzyqENBDNHKCGX7353-80-34 02:20:00 Test Item Value Reference Range Interpretation Comments MCHC (test code = MCHC) 32.4 32.0-36.0 [facility] CenterJsvxexbEIDPQRNOWE6489-52-36 02:20:00 Test Item Value Reference Range Interpretation Comments RDW (test code = RDW) 21.1 11.5-14.5 [facility] CenterMmlkoaiMWGKZFOPYE7728-28-97 02:20:00 Test Item Value Reference Range Interpretation Comments Platelet (test code = Platelet) 297 133-450 [facility] CenterRotbluaFZZHKMTUZA5865-06-20 02:20:00 Test Item Value Reference Range Interpretation Comments MPV (test code = MPV) 7.5 7.4-10.4 [place] 778932-07-25 02:20:00 Test Item Value Reference Range Interpretation Comments Segs (test code = Segs) 85.8 45.0-75.0 [facility] CenterZzfedjmHJEGBPORWN4386-43-57 02:20:00 Test Item Value Reference Range Interpretation Comments Lymphocytes (test code = Lymphocytes) 8.5 20.0-40.0 [place] 778932-07-25 02:20:00 Test Item Value Reference Range Interpretation Comments Monocytes (test code = Monocytes) 5.0 2.0-12.0 [facility] CenterCprgftuTXAWSEGDAQ4572-34-92 02:20:00 Test Item Value Reference Range Interpretation Comments Eosinophils (test code = 0.3 See_Comment [A utomated message] The Eosinophils) system which ge nerated this result tra nsmitted reference range : <=4.0. The reference r hugo was not used to int erpret this result as normal/abnormal . [facility]villeDspoyqsYQUXCBEMOH0808-39-81 02:20:00 Test Item Value Reference Range Interpretation Comments Basophils (test code = 0.4 See_Comment [Aut omated message] The Basophils) system which ge nerated this result tra nsmitted reference range : <=1.0. The reference r hugo was not used to int erpret this result as normal/abnormal . [facility] GreenvilleDrohfpjFLMTOTUKBE7104-05-47 02:20:00 Test Item Value Reference Range Interpretation Comments Neutrophils # (test code = Neutrophils 7.4 1.5-8.1 #) [facility] CenterQvookspLDCUNYACQZ4435-54-99 02:20:00 Test Item Value Reference Range Interpretation Comments Lymphocytes # (test code = Lymphocytes 0.7 1.0-5.5 #) [facility] CenterFotredbGRTCAHGWIX9821-39-97 02:20:00 Test Item Value Reference Range Interpretation Comments Monocytes # (test code 0.4 See_Comment [Aut omated message] The = Monocytes #) system which generated this result tra nsmitted reference range : <=0.8. The reference r hugo was not used to int erpret this result as normal/abnormal . [facility] CenterAmyfdsuIGKRCYXFVV3888-03-83 02:20:00 Test Item Value Reference Range Interpretation Comments Microcyte (test code = 1+ *ABN*(06/12/22 Microcyte) 9:20 PM) [facility]villeCARD[facility] [id number] 02:20:00 Test Item Value Reference Range Interpretation Comments HS Troponin I (test code = HS Troponin 52 I) [facility] [id number] 02:20:00 Test Item Value Reference Range Interpretation Comments Glucose Lvl (test code = Glucose Lvl) 103 70-99 [facility] [id number] 02:20:00 Test Item Value Reference Range Interpretation Comments BUN (test code = BUN) 22 7- [facility] [id number] 02:20:00 Test Item Value Reference Range Interpretation Comments Creatinine Lvl (test code = Creatinine 0.90 0.50-1.40 Lvl) [facility] [id number] 02:20:00 Test Item Value Reference Range Interpretation Comments Sodium Lvl (test code = Sodium Lvl) 131 135-145 [facility] [id number] 02:20:00 Test Item Value Reference Range Interpretation Comments Potassium Lvl (test code = Potassium 4.2 3.5-5.1 Lvl) [facility]2022-07-25 02:20:00 Test Item Value Reference Range Interpretation Comments Chloride Lvl (test code = Chloride Lvl) 97 95-109 [facility] [id number] 02:20:00 Test Item Value Reference Range Interpretation Comments CO2 (test code = CO2) 26 24-32 [facility] TexasMelodigramNOV[facility] [id number] 02:20:00 Test Item Value Reference Range Interpretation Comments Calcium Lvl (test code = Calcium Lvl) 8.7 8.5-10.5 [facility] [id number] 02:20:00 Test Item Value Reference Range Interpretation Comments Total Protein (test code = Total 7.0 6.4-8.4 Protein) [facility] [id number] 02:20:00 Test Item Value Reference Range Interpretation Comments Albumin Lvl (test code = Albumin Lvl) 3.4 3.5-5.0 [facility] [id number] 02:20:00 Test Item Value Reference Range Interpretation Comments ALT (test code = ALT) 18 See_Comment [Auto mated message] The system which ge nerated this result transmit lavon reference range : <=65. The reference range was not used to interpr et this result as dionne l/abnormal. [facility] [id number] 02:20:00 Test Item Value Reference Range Interpretation Comments AST (test code = AST) 27 See_Comment [Auto mated message] The system which ge nerated this result transmit lavon reference range : <=37. The reference range was not used to interpr et this result as dionne l/abnormal. [facility] [id number] 02:20:00 Test Item Value Reference Range Interpretation Comments Alk Phos (test code = Alk Phos) 57 39-136 [facility] [id number] 02:20:00 Test Item Value Reference Range Interpretation Comments Bili Total (test code = Bili Total) 1.0 0.2-1.3 [place] 852652-07-25 02:20:00 Test Item Value Reference Range Interpretation Comments AGAP (test code = AGAP) 12.2 10.0-20.0 [place] 852652-07-25 02:20:00 Test Item Value Reference Range Interpretation Comments B/C Ratio (test code = B/C Ratio) 24 1 6-25 [place] 852652-07-25 02:20:00 Test Item Value Reference Range Interpretation Comments Globulin (test code = Globulin) 3.6 2.7-4.2 [place] 852652-07-25 02:20:00 Test Item Value Reference Range Interpretation Comments A/G Ratio (test code = A/G Ratio) 0.9 1 0.7-1.6 [place] 852652-07-25 02:20:00 Test Item Value Reference Range Interpretation Comments eGFR (test code = eGFR) 62 [place] 778932-07-25 02:20:00 Test Item Value Reference Range Interpretation Comments WBC (test code = WBC) 8.6 3.7-10.4 [place] 778932-07-25 02:20:00 Test Item Value Reference Range Interpretation Comments RBC (test code = RBC) 3.58 4.20-5.40 [place] 778932-07-25 02:20:00 Test Item Value Reference Range Interpretation Comments Hgb (test code = Hgb) 8.8 12.0-16.0 [place] 778932-07-25 02:20:00 Test Item Value Reference Range Interpretation Comments Hct (test code = Hct) 27.1 36.0-48.0 [place] 778932-07-25 02:20:00 Test Item Value Reference Range Interpretation Comments MCV (test code = MCV) 75.6 80.0-98.0 [place] 778932-07-25 02:20:00 Test Item Value Reference Range Interpretation Comments MCH (test code = MCH) 24.5 pg 27.0-31.0 [place] 778932-07-25 02:20:00 Test Item Value Reference Range Interpretation Comments MCHC (test code = MCHC) 32.4 32.0-36.0 [place] 778932-07-25 02:20:00 Test Item Value Reference Range Interpretation Comments RDW (test code = RDW) 21.1 11.5-14.5 [place] 778932-07-25 02:20:00 Test Item Value Reference Range Interpretation Comments Platelet (test code = Platelet) 297 133-450 [place] 778932-07-25 02:20:00 Test Item Value Reference Range Interpretation Comments MPV (test code = MPV) 7.5 7.4-10.4 [place] 778932-07-25 02:20:00 Test Item Value Reference Range Interpretation Comments Segs (test code = Segs) 85.8 45.0-75.0 [place] 778932-07-25 02:20:00 Test Item Value Reference Range Interpretation Comments Lymphocytes (test code = Lymphocytes) 8.5 20.0-40.0 [place] 778932-07-25 02:20:00 Test Item Value Reference Range Interpretation Comments Monocytes (test code = Monocytes) 5.0 2.0-12.0 [place] 778932-07-25 02:20:00 Test Item Value Reference Range Interpretation Comments Eosinophils (test code = 0.3 See_Comment [A utomated message] The Eosinophils) system which ge nerated this result tra nsmitted reference range : <=4.0. The reference r hugo was not used to int erpret this result as normal/abnormal . [place] 778932-07-25 02:20:00 Test Item Value Reference Range Interpretation Comments Basophils (test code = 0.4 See_Comment [Aut omated message] The Basophils) system which ge nerated this result tra nsmitted reference range : <=1.0. The reference r hugo was not used to int erpret this result as normal/abnormal . [place] 778932-07-25 02:20:00 Test Item Value Reference Range Interpretation Comments Neutrophils # (test code = Neutrophils 7.4 1.5-8.1 #) [place] 778932-07-25 02:20:00 Test Item Value Reference Range Interpretation Comments Lymphocytes # (test code = Lymphocytes 0.7 1.0-5.5 #) [place] 778932-07-25 02:20:00 Test Item Value Reference Range Interpretation Comments Monocytes # (test code 0.4 See_Comment [Aut omated message] The = Monocytes #) system which generated this result tra nsmitted reference range : <=0.8. The reference r hugo was not used to int erpret this result as normal/abnormal . [facility] GreenvilleJwzgoyjMEULIDBGJC2112-03-51 02:20:00 Test Item Value Reference Range Interpretation Comments Microcyte (test code = 1+ *ABN*(06/12/22 Microcyte) 9:20 PM) [facility] [id number] 02:20:00 Test Item Value Reference Range Interpretation Comments HS Troponin I (test code = HS Troponin 52 I) [facility] [id number] 02:20:00 Test Item Value Reference Range Interpretation Comments Glucose Lvl (test code = Glucose Lvl) 103 70-99 [facility]2022-07-25 02:20:00 Test Item Value Reference Range Interpretation Comments BUN (test code = BUN) 22 7-22 [facility]2022-07-25 02:20:00 Test Item Value Reference Range Interpretation Comments Creatinine Lvl (test code = Creatinine 0.90 0.50-1.40 Lvl) [facility] [id number] 02:20:00 Test Item Value Reference Range Interpretation Comments Sodium Lvl (test code = Sodium Lvl) 131 135-145 [facility]2022-07-25 02:20:00 Test Item Value Reference Range Interpretation Comments Potassium Lvl (test code = Potassium 4.2 3.5-5.1 Lvl) [facility]2022-07-25 02:20:00 Test Item Value Reference Range Interpretation Comments Chloride Lvl (test code = Chloride Lvl) 97 95-109 [facility]2022-07-25 02:20:00 Test Item Value Reference Range Interpretation Comments CO2 (test code = CO2) 26 24-32 [facility] [id number] 02:20:00 Test Item Value Reference Range Interpretation Comments Calcium Lvl (test code = Calcium Lvl) 8.7 8.5-10.5 [facility]2022-07-25 02:20:00 Test Item Value Reference Range Interpretation Comments Total Protein (test code = Total 7.0 6.4-8.4 Protein) [facility]2022-07-25 02:20:00 Test Item Value Reference Range Interpretation Comments Albumin Lvl (test code = Albumin Lvl) 3.4 3.5-5.0 [place] 852652-07-25 02:20:00 Test Item Value Reference Range Interpretation Comments ALT (test code = ALT) 18 See_Comment [Auto mated message] The system which ge nerated this result transmit lavon reference range : <=65. The reference range was not used to interpr et this result as dionne l/abnormal. [place] 852652-07-25 02:20:00 Test Item Value Reference Range Interpretation Comments AST (test code = AST) 27 See_Comment [Auto mated message] The system which ge nerated this result transmit lavon reference range : <=37. The reference range was not used to interpr et this result as dionne l/abnormal. [place] 852652-07-25 02:20:00 Test Item Value Reference Range Interpretation Comments Alk Phos (test code = Alk Phos) 57 39-136 [place] 852652-07-25 02:20:00 Test Item Value Reference Range Interpretation Comments Bili Total (test code = Bili Total) 1.0 0.2-1.3 [place] 852652-07-25 02:20:00 Test Item Value Reference Range Interpretation Comments AGAP (test code = AGAP) 12.2 10.0-20.0 [place] 852652-07-25 02:20:00 Test Item Value Reference Range Interpretation Comments B/C Ratio (test code = B/C Ratio) 24 1 6-25 [place] 852652-07-25 02:20:00 Test Item Value Reference Range Interpretation Comments Globulin (test code = Globulin) 3.6 2.7-4.2 [place] 852652-07-25 02:20:00 Test Item Value Reference Range Interpretation Comments A/G Ratio (test code = A/G Ratio) 0.9 1 0.7-1.6 [place] [address]-07-25 02:20:00 Test Item Value Reference Range Interpretation Comments eGFR (test code = eGFR) 62 [facility] CenterRduofpiBBCXXIKFLT4846-97-74 02:20:00 Test Item Value Reference Range Interpretation Comments WBC (test code = WBC) 8.6 3.7-10.4 [facility] CenterSrtrlexPYKINWUNWZ9242-76-20 02:20:00 Test Item Value Reference Range Interpretation Comments RBC (test code = RBC) 3.58 4.20-5.40 [facility] CenterVpjujbxUYCJVAIDTX2454-83-70 02:20:00 Test Item Value Reference Range Interpretation Comments Hgb (test code = Hgb) 8.8 12.0-16.0 [facility] CenterWfrngxfZSZWSPDBKO2992-45-77 02:20:00 Test Item Value Reference Range Interpretation Comments Hct (test code = Hct) 27.1 36.0-48.0 [facility] CenterXwzqgozEWILJMMMZQ5908-06-27 02:20:00 Test Item Value Reference Range Interpretation Comments MCV (test code = MCV) 75.6 80.0-98.0 [facility] CenterFeymkqxKWIJUTGRPI2628-45-91 02:20:00 Test Item Value Reference Range Interpretation Comments MCH (test code = MCH) 24.5 pg 27.0-31.0 [facility] CenterAfjaizePKCSVTBSYP6747-98-54 02:20:00 Test Item Value Reference Range Interpretation Comments MCHC (test code = MCHC) 32.4 32.0-36.0 [facility] CenterZxumxngFUUGSYTEPA2982-98-95 02:20:00 Test Item Value Reference Range Interpretation Comments RDW (test code = RDW) 21.1 11.5-14.5 [facility] CenterVtffgorSEPSLYFPXM1419-71-32 02:20:00 Test Item Value Reference Range Interpretation Comments Platelet (test code = Platelet) 297 133-450 [facility] CenterCyvyqymXNQSQBKPDB0166-98-24 02:20:00 Test Item Value Reference Range Interpretation Comments MPV (test code = MPV) 7.5 7.4-10.4 [facility] CenterHtrujepDNCTPTKLGT3950-72-91 02:20:00 Test Item Value Reference Range Interpretation Comments Segs (test code = Segs) 85.8 45.0-75.0 [place] 778932-07-25 02:20:00 Test Item Value Reference Range Interpretation Comments Lymphocytes (test code = Lymphocytes) 8.5 20.0-40.0 [facility] CenterHdwbftoEWFMQTXJRN2695-38-86 02:20:00 Test Item Value Reference Range Interpretation Comments Monocytes (test code = Monocytes) 5.0 2.0-12.0 [place] 778932-07-25 02:20:00 Test Item Value Reference Range Interpretation Comments Eosinophils (test code = 0.3 See_Comment [A utomated message] The Eosinophils) system which ge nerated this result tra nsmitted reference range : <=4.0. The reference r hugo was not used to int erpret this result as normal/abnormal . [facility] CenterHgmvwrgNTZCQJNJRA0111-28-81 02:20:00 Test Item Value Reference Range Interpretation Comments Basophils (test code = 0.4 See_Comment [Aut omated message] The Basophils) system which ge nerated this result tra nsmitted reference range : <=1.0. The reference r hugo was not used to int erpret this result as normal/abnormal . [facility] CenterDlvfzpbFVSLKZZBRB4318-11-03 02:20:00 Test Item Value Reference Range Interpretation Comments Neutrophils # (test code = Neutrophils 7.4 1.5-8.1 #) [facility] CenterTamjadeTEOHAZJEZK4767-29-73 02:20:00 Test Item Value Reference Range Interpretation Comments Lymphocytes # (test code = Lymphocytes 0.7 1.0-5.5 #) [facility] CenterEyjqagkLRYMWZRCXO8953-24-68 02:20:00 Test Item Value Reference Range Interpretation Comments Monocytes # (test code 0.4 See_Comment [Aut omated message] The = Monocytes #) system which generated this result tra nsmitted reference range : <=0.8. The reference r hugo was not used to int erpret this result as normal/abnormal . [facility] CenterPeilzudVOSOZHQLLX5757-64-17 02:20:00 Test Item Value Reference Range Interpretation Comments Microcyte (test code = 1+ *ABN*(06/12/22 Microcyte) 9:20 PM) [facility] [id number] 02:20:00 Test Item Value Reference Range Interpretation Comments HS Troponin I (test code = HS Troponin 52 I) [facility] [id number] 02:20:00 Test Item Value Reference Range Interpretation Comments Glucose Lvl (test code = Glucose Lvl) 103 70-99 [facility]2022-07-25 02:20:00 Test Item Value Reference Range Interpretation Comments BUN (test code = BUN) 22 - [facility] [id number] 02:20:00 Test Item Value Reference Range Interpretation Comments Creatinine Lvl (test code = Creatinine 0.90 0.50-1.40 Lvl) [place] 852652-07-25 02:20:00 Test Item Value Reference Range Interpretation Comments Sodium Lvl (test code = Sodium Lvl) 131 135-145 [place] 852652-07-25 02:20:00 Test Item Value Reference Range Interpretation Comments Potassium Lvl (test code = Potassium 4.2 3.5-5.1 Lvl) [place] 852652-07-25 02:20:00 Test Item Value Reference Range Interpretation Comments Chloride Lvl (test code = Chloride Lvl) 97 95-109 [place] 852652-07-25 02:20:00 Test Item Value Reference Range Interpretation Comments CO2 (test code = CO2) 26 24-32 [place] 852652-07-25 02:20:00 Test Item Value Reference Range Interpretation Comments Calcium Lvl (test code = Calcium Lvl) 8.7 8.5-10.5 [place] 852652-07-25 02:20:00 Test Item Value Reference Range Interpretation Comments Total Protein (test code = Total 7.0 6.4-8.4 Protein) [place] 852652-07-25 02:20:00 Test Item Value Reference Range Interpretation Comments Albumin Lvl (test code = Albumin Lvl) 3.4 3.5-5.0 [place] 852652-07-25 02:20:00 Test Item Value Reference Range Interpretation Comments ALT (test code = ALT) 18 See_Comment [Auto mated message] The system which [employer] nerated this result transmit lavon reference range : <=65. The reference range was not used to interpr et this result as dionne l/abnormal. [place] 852652-07-25 02:20:00 Test Item Value Reference Range Interpretation Comments AST (test code = AST) 27 See_Comment [Auto mated message] The system which [employer] nerated this result transmit lavon reference range : <=37. The reference range was not used to interpr et this result as dionne l/abnormal. [place] 852652-07-25 02:20:00 Test Item Value Reference Range Interpretation Comments Alk Phos (test code = Alk Phos) 57 39-136 [place] 56[address]-07-25 02:20:00 Test Item Value Reference Range Interpretation Comments Bili Total (test code = Bili Total) 1.0 0.2-1.3 [facility]2022-07-25 02:20:00 Test Item Value Reference Range Interpretation Comments AGAP (test code = AGAP) 12.2 10.0-20.0 [place] 852652-07-25 02:20:00 Test Item Value Reference Range Interpretation Comments B/C Ratio (test code = B/C Ratio) 24 1 6-25 [place] 852652-07-25 02:20:00 Test Item Value Reference Range Interpretation Comments Globulin (test code = Globulin) 3.6 2.7-4.2 [facility]2022-07-25 02:20:00 Test Item Value Reference Range Interpretation Comments A/G Ratio (test code = A/G Ratio) 0.9 1 0.7-1.6 [place] 852652-07-25 02:20:00 Test Item Value Reference Range Interpretation Comments eGFR (test code = eGFR) 62 [facility] CenterOrtbdcaLBRZHVCOPO5865-23-19 02:20:00 Test Item Value Reference Range Interpretation Comments WBC (test code = WBC) 8.6 3.7-10.4 [place] 778932-07-25 02:20:00 Test Item Value Reference Range Interpretation Comments RBC (test code = RBC) 3.58 4.20-5.40 [place] 778932-07-25 02:20:00 Test Item Value Reference Range Interpretation Comments Hgb (test code = Hgb) 8.8 12.0-16.0 [place] 778932-07-25 02:20:00 Test Item Value Reference Range Interpretation Comments Hct (test code = Hct) 27.1 36.0-48.0 [place] 778932-07-25 02:20:00 Test Item Value Reference Range Interpretation Comments MCV (test code = MCV) 75.6 80.0-98.0 [place] 778932-07-25 02:20:00 Test Item Value Reference Range Interpretation Comments MCH (test code = MCH) 24.5 pg 27.0-31.0 [place] 778932-07-25 02:20:00 Test Item Value Reference Range Interpretation Comments MCHC (test code = MCHC) 32.4 32.0-36.0 [facility] CenterNsqsycdVSJWNFAJKK1274-59-70 02:20:00 Test Item Value Reference Range Interpretation Comments RDW (test code = RDW) 21.1 11.5-14.5 [place] 778932-07-25 02:20:00 Test Item Value Reference Range Interpretation Comments Platelet (test code = Platelet) 297 133-450 [facility] CenterFqeksqoOCGOGKBXDI9632-56-02 02:20:00 Test Item Value Reference Range Interpretation Comments MPV (test code = MPV) 7.5 7.4-10.4 [facility] CenterIxxvqwhWUZFLXMIWV2790-21-74 02:20:00 Test Item Value Reference Range Interpretation Comments Segs (test code = Segs) 85.8 45.0-75.0 [place] 778932-07-25 02:20:00 Test Item Value Reference Range Interpretation Comments Lymphocytes (test code = Lymphocytes) 8.5 20.0-40.0 [facility] CenterXanvrnsCZYLPTMIVR5086-89-49 02:20:00 Test Item Value Reference Range Interpretation Comments Monocytes (test code = Monocytes) 5.0 2.0-12.0 [facility] CenterPmnaangTHZYNOYAAE4642-26-64 02:20:00 Test Item Value Reference Range Interpretation Comments Eosinophils (test code = 0.3 See_Comment [A utomated message] The Eosinophils) system which ge nerated this result tra nsmitted reference range : <=4.0. The reference r hugo was not used to int erpret this result as normal/abnormal . [facility] CenterMiuqlqsRZKUQIEGMI2212-95-21 02:20:00 Test Item Value Reference Range Interpretation Comments Basophils (test code = 0.4 See_Comment [Aut omated message] The Basophils) system which ge nerated this result tra nsmitted reference range : <=1.0. The reference r hugo was not used to int erpret this result as normal/abnormal . [facility] CenterExdlhczTBUSZPMNJH1143-31-89 02:20:00 Test Item Value Reference Range Interpretation Comments Neutrophils # (test code = Neutrophils 7.4 1.5-8.1 #) [facility]NkuctmgUTUUHCYMKV5598-13-00 02:20:00 Test Item Value Reference Range Interpretation Comments Lymphocytes # (test code = Lymphocytes 0.7 1.0-5.5 #) [facility]BP[facility]18[facility] 02:20:00 Test Item Value Reference Range Interpretation Comments Monocytes # (test code 0.4 See_Comment [Aut omated message] The = Monocytes #) system which generated this result tra nsmitted reference range : <=0.8. The reference r hugo was not used to int erpret this result as normal/abnormal . [facility] CenterHblcxpjYUQNJXDOCU6516-40-45 02:20:00 Test Item Value Reference Range Interpretation Comments Microcyte (test code = 1+ *ABN*(06/12/22 Microcyte) 9:20 PM) [facility] [id number] 02:20:00 Test Item Value Reference Range Interpretation Comments HS Troponin I (test code = HS Troponin 52 I) [facility]2022-07-25 02:20:00 Test Item Value Reference Range Interpretation Comments Glucose Lvl (test code = Glucose Lvl) 103 70-99 [facility]2022-07-25 02:20:00 Test Item Value Reference Range Interpretation Comments BUN (test code = BUN) 22 7-22 [facility]2022-07-25 02:20:00 Test Item Value Reference Range Interpretation Comments Creatinine Lvl (test code = Creatinine 0.90 0.50-1.40 Lvl) [facility]2022-07-25 02:20:00 Test Item Value Reference Range Interpretation Comments Sodium Lvl (test code = Sodium Lvl) 131 135-145 [facility]2022-07-25 02:20:00 Test Item Value Reference Range Interpretation Comments Potassium Lvl (test code = Potassium 4.2 3.5-5.1 Lvl) [facility]2022-07-25 02:20:00 Test Item Value Reference Range Interpretation Comments Chloride Lvl (test code = Chloride Lvl) 97 95-109 [facility]2022-07-25 02:20:00 Test Item Value Reference Range Interpretation Comments CO2 (test code = CO2) 26 24-32 [facility]2022-07-25 02:20:00 Test Item Value Reference Range Interpretation Comments Calcium Lvl (test code = Calcium Lvl) 8.7 8.5-10.5 [facility]2022-07-25 02:20:00 Test Item Value Reference Range Interpretation Comments Total Protein (test code = Total 7.0 6.4-8.4 Protein) [facility] [id number] 02:20:00 Test Item Value Reference Range Interpretation Comments Albumin Lvl (test code = Albumin Lvl) 3.4 3.5-5.0 [facility] [id number] 02:20:00 Test Item Value Reference Range Interpretation Comments ALT (test code = ALT) 18 See_Comment [Auto mated message] The system which ge nerated this result transmit lavon reference range : <=65. The reference range was not used to interpr et this result as dionne l/abnormal. [facility] [id number] 02:20:00 Test Item Value Reference Range Interpretation Comments AST (test code = AST) 27 See_Comment [Auto mated message] The system which ge nerated this result transmit lavon reference range : <=37. The reference range was not used to interpr et this result as dionne l/abnormal. [facility] [id number] 02:20:00 Test Item Value Reference Range Interpretation Comments Alk Phos (test code = Alk Phos) 57 39-136 [facility] [employer] [id number] 02:20:00 Test Item Value Reference Range Interpretation Comments Bili Total (test code = Bili Total) 1.0 0.2-1.3 [facility] [id number] 02:20:00 Test Item Value Reference Range Interpretation Comments AGAP (test code = AGAP) 12.2 10.0-20.0 [facility] [employer] [id number] 02:20:00 Test Item Value Reference Range Interpretation Comments B/C Ratio (test code = B/C Ratio) 24 1 6-25 [facility] [id number] 02:20:00 Test Item Value Reference Range Interpretation Comments Globulin (test code = Globulin) 3.6 2.7-4.2 [facility] [id number] 02:20:00 Test Item Value Reference Range Interpretation Comments A/G Ratio (test code = A/G Ratio) 0.9 1 0.7-1.6 [facility] [id number] 02:20:00 Test Item Value Reference Range Interpretation Comments eGFR (test code = eGFR) 62 [facility] CenterAhlkxqiZVEZWPLSZX8392-19-82 02:20:00 Test Item Value Reference Range Interpretation Comments WBC (test code = WBC) 8.6 3.7-10.4 [facility] CenterQpwvoseZXASYVLERX5959-07-76 02:20:00 Test Item Value Reference Range Interpretation Comments RBC (test code = RBC) 3.58 4.20-5.40 [facility] CenterRutbucuVDIIVPRIGW2162-33-95 02:20:00 Test Item Value Reference Range Interpretation Comments Hgb (test code = Hgb) 8.8 12.0-16.0 [facility] CenterZpfmvphJWNIFKHUGZ6287-34-72 02:20:00 Test Item Value Reference Range Interpretation Comments Hct (test code = Hct) 27.1 36.0-48.0 [facility] CenterSvbkrdvDWGQKKVQPE3056-17-94 02:20:00 Test Item Value Reference Range Interpretation Comments MCV (test code = MCV) 75.6 80.0-98.0 [facility] CenterJbdsawfOEWSHRIVAG5107-88-58 02:20:00 Test Item Value Reference Range Interpretation Comments MCH (test code = MCH) 24.5 pg 27.0-31.0 [facility] CenterLtfwscbEVWDGDJIZH3756-48-30 02:20:00 Test Item Value Reference Range Interpretation Comments MCHC (test code = MCHC) 32.4 32.0-36.0 [facility] CenterFdnwdvzLSFMPJDFUA4995-40-77 02:20:00 Test Item Value Reference Range Interpretation Comments RDW (test code = RDW) 21.1 11.5-14.5 [facility] CenterMauzwvlTESSKWLJYT3946-52-77 02:20:00 Test Item Value Reference Range Interpretation Comments Platelet (test code = Platelet) 297 133-450 [facility] CenterVocckbjBBKFYQGNDF6299-08-63 02:20:00 Test Item Value Reference Range Interpretation Comments MPV (test code = MPV) 7.5 7.4-10.4 [place] 778932-07-25 02:20:00 Test Item Value Reference Range Interpretation Comments Segs (test code = Segs) 85.8 45.0-75.0 [facility] CenterBwndljkWOQOOIWRZJ3418-40-65 02:20:00 Test Item Value Reference Range Interpretation Comments Lymphocytes (test code = Lymphocytes) 8.5 20.0-40.0 [place] 778932-07-25 02:20:00 Test Item Value Reference Range Interpretation Comments Monocytes (test code = Monocytes) 5.0 2.0-12.0 [facility] CenterUgawfrfKAJKAGZOUM2156-94-60 02:20:00 Test Item Value Reference Range Interpretation Comments Eosinophils (test code = 0.3 See_Comment [A utomated message] The Eosinophils) system which ge nerated this result tra nsmitted reference range : <=4.0. The reference r hugo was not used to int erpret this result as normal/abnormal . [facility] CenterOpqawvfIAIYBJXQKK0633-20-75 02:20:00 Test Item Value Reference Range Interpretation Comments Basophils (test code = 0.4 See_Comment [Aut omated message] The Basophils) system which ge nerated this result tra nsmitted reference range : <=1.0. The reference r hugo was not used to int erpret this result as normal/abnormal . [facility] CenterRgzffbxYOQEAFMTVG5345-86-42 02:20:00 Test Item Value Reference Range Interpretation Comments Neutrophils # (test code = Neutrophils 7.4 1.5-8.1 #) [facility] CenterUhwppfyRIURERJBTA5559-79-67 02:20:00 Test Item Value Reference Range Interpretation Comments Lymphocytes # (test code = Lymphocytes 0.7 1.0-5.5 #) [facility] CenterGramgesDVZGDBSMJN3499-41-08 02:20:00 Test Item Value Reference Range Interpretation Comments Monocytes # (test code 0.4 See_Comment [Aut omated message] The = Monocytes #) system which generated this result tra nsmitted reference range : <=0.8. The reference r hugo was not used to int erpret this result as normal/abnormal . [facility] CenterYconrliOPRNMMAVHO4805-03-07 02:20:00 Test Item Value Reference Range Interpretation Comments Microcyte (test code = 1+ *ABN*(06/12/22 Microcyte) 9:20 PM) [facility]DIMCLAR[facility] LAPEER [id number] 02:20:00 Test Item Value Reference Range Interpretation Comments HS Troponin I (test code = HS Troponin 52 I) [facility]2022-07-25 02:20:00 Test Item Value Reference Range Interpretation Comments Glucose Lvl (test code = Glucose Lvl) 103 70-99 [facility]2022-07-25 02:20:00 Test Item Value Reference Range Interpretation Comments BUN (test code = BUN) 22 7-22 [place] 852652-07-25 02:20:00 Test Item Value Reference Range Interpretation Comments Creatinine Lvl (test code = Creatinine 0.90 0.50-1.40 Lvl) [place] 852652-07-25 02:20:00 Test Item Value Reference Range Interpretation Comments Sodium Lvl (test code = Sodium Lvl) 131 135-145 [place] 852652-07-25 02:20:00 Test Item Value Reference Range Interpretation Comments Potassium Lvl (test code = Potassium 4.2 3.5-5.1 Lvl) [place] 852652-07-25 02:20:00 Test Item Value Reference Range Interpretation Comments Chloride Lvl (test code = Chloride Lvl) 97 95-109 [place] 852652-07-25 02:20:00 Test Item Value Reference Range Interpretation Comments CO2 (test code = CO2) 26 24-32 [place] 852652-07-25 02:20:00 Test Item Value Reference Range Interpretation Comments Calcium Lvl (test code = Calcium Lvl) 8.7 8.5-10.5 [place] 852652-07-25 02:20:00 Test Item Value Reference Range Interpretation Comments Total Protein (test code = Total 7.0 6.4-8.4 Protein) [place] 852652-07-25 02:20:00 Test Item Value Reference Range Interpretation Comments Albumin Lvl (test code = Albumin Lvl) 3.4 3.5-5.0 [place] 852652-07-25 02:20:00 Test Item Value Reference Range Interpretation Comments ALT (test code = ALT) 18 See_Comment [Auto mated message] The system which ge nerated this result transmit lavon reference range : <=65. The reference range was not used to interpr et this result as dionne l/abnormal. [place] 852652-07-25 02:20:00 Test Item Value Reference Range Interpretation Comments AST (test code = AST) 27 See_Comment [Auto mated message] The system which ge nerated this result transmit lavon reference range : <=37. The reference range was not used to interpr et this result as dionne l/abnormal. [facility]2022-07-25 02:20:00 Test Item Value Reference Range Interpretation Comments Alk Phos (test code = Alk Phos) 57 39-136 [place] 852652-07-25 02:20:00 Test Item Value Reference Range Interpretation Comments Bili Total (test code = Bili Total) 1.0 0.2-1.3 [place] 852652-07-25 02:20:00 Test Item Value Reference Range Interpretation Comments AGAP (test code = AGAP) 12.2 10.0-20.0 [place] 852652-07-25 02:20:00 Test Item Value Reference Range Interpretation Comments B/C Ratio (test code = B/C Ratio) 24 1 6-25 [place] 852652-07-25 02:20:00 Test Item Value Reference Range Interpretation Comments Globulin (test code = Globulin) 3.6 2.7-4.2 [place] 852652-07-25 02:20:00 Test Item Value Reference Range Interpretation Comments A/G Ratio (test code = A/G Ratio) 0.9 1 0.7-1.6 [place] 852652-07-25 02:20:00 Test Item Value Reference Range Interpretation Comments eGFR (test code = eGFR) 62 [place] 778932-07-25 02:20:00 Test Item Value Reference Range Interpretation Comments WBC (test code = WBC) 8.6 3.7-10.4 [place] 778932-07-25 02:20:00 Test Item Value Reference Range Interpretation Comments RBC (test code = RBC) 3.58 4.20-5.40 [place] 778932-07-25 02:20:00 Test Item Value Reference Range Interpretation Comments Hgb (test code = Hgb) 8.8 12.0-16.0 [place] 778932-07-25 02:20:00 Test Item Value Reference Range Interpretation Comments Hct (test code = Hct) 27.1 36.0-48.0 [place] 778932-07-25 02:20:00 Test Item Value Reference Range Interpretation Comments MCV (test code = MCV) 75.6 80.0-98.0 [place] 778932-07-25 02:20:00 Test Item Value Reference Range Interpretation Comments MCH (test code = MCH) 24.5 pg 27.0-31.0 [facility] CenterSavxkpeBGATFDGXJN1592-33-36 02:20:00 Test Item Value Reference Range Interpretation Comments MCHC (test code = MCHC) 32.4 32.0-36.0 [facility] CenterLwcmwyzSBWAJFFIUV0121-58-16 02:20:00 Test Item Value Reference Range Interpretation Comments RDW (test code = RDW) 21.1 11.5-14.5 [facility] CenterOglkxhtZXVWLKAJPI1037-62-79 02:20:00 Test Item Value Reference Range Interpretation Comments Platelet (test code = Platelet) 297 133-450 [facility] CenterXbrsefmROJGGXFOCP5837-75-32 02:20:00 Test Item Value Reference Range Interpretation Comments MPV (test code = MPV) 7.5 7.4-10.4 [place] 778932-07-25 02:20:00 Test Item Value Reference Range Interpretation Comments Segs (test code = Segs) 85.8 45.0-75.0 [facility] CenterNmmcudmIIEORXLMYA1302-62-35 02:20:00 Test Item Value Reference Range Interpretation Comments Lymphocytes (test code = Lymphocytes) 8.5 20.0-40.0 [facility] CenterVgsqxplSTKZPVRRZT1276-60-42 02:20:00 Test Item Value Reference Range Interpretation Comments Monocytes (test code = Monocytes) 5.0 2.0-12.0 [facility] CenterLiyymsoZJZQDLSAVB1349-13-29 02:20:00 Test Item Value Reference Range Interpretation Comments Eosinophils (test code = 0.3 See_Comment [A utomated message] The Eosinophils) system which ge nerated this result tra nsmitted reference range : <=4.0. The reference r hugo was not used to int erpret this result as normal/abnormal . [place] 778932-07-25 02:20:00 Test Item Value Reference Range Interpretation Comments Basophils (test code = 0.4 See_Comment [Aut omated message] The Basophils) system which ge nerated this result tra nsmitted reference range : <=1.0. The reference r hugo was not used to int erpret this result as normal/abnormal . [facility] CenterFuackknAUPSOHLCAS8982-56-44 02:20:00 Test Item Value Reference Range Interpretation Comments Neutrophils # (test code = Neutrophils 7.4 1.5-8.1 #) [facility]WslrombJZFCDHTWQS6753-97-49 02:20:00 Test Item Value Reference Range Interpretation Comments Lymphocytes # (test code = Lymphocytes 0.7 1.0-5.5 #) [facility] CenterVxmsiksCFJNRRSBDR3429-89-18 02:20:00 Test Item Value Reference Range Interpretation Comments Monocytes # (test code 0.4 See_Comment [Aut omated message] The = Monocytes #) system which generated this result tra nsmitted reference range : <=0.8. The reference r hugo was not used to int erpret this result as normal/abnormal . [facility] CenterZpkxdcfKHMFENOFKG9653-43-09 02:20:00 Test Item Value Reference Range Interpretation Comments Microcyte (test code = 1+ *ABN*(06/12/22 Microcyte) 9:20 PM) [facility]2022-07-25 02:20:00 Test Item Value Reference Range Interpretation Comments HS Troponin I (test code = HS Troponin 52 I) [facility] [id number] 02:20:00 Test Item Value Reference Range Interpretation Comments Glucose Lvl (test code = Glucose Lvl) 103 70-99 [facility] [id number] 02:20:00 Test Item Value Reference Range Interpretation Comments BUN (test code = BUN) 22 7-22 [facility]2022-07-25 02:20:00 Test Item Value Reference Range Interpretation Comments Creatinine Lvl (test code = Creatinine 0.90 0.50-1.40 Lvl) [facility] [id number] 02:20:00 Test Item Value Reference Range Interpretation Comments Sodium Lvl (test code = Sodium Lvl) 131 135-145 [facility] [id number] 02:20:00 Test Item Value Reference Range Interpretation Comments Potassium Lvl (test code = Potassium 4.2 3.5-5.1 Lvl) [facility] [id number] 02:20:00 Test Item Value Reference Range Interpretation Comments Chloride Lvl (test code = Chloride Lvl) 97 95-109 [facility] [id number] 02:20:00 Test Item Value Reference Range Interpretation Comments CO2 (test code = CO2) 26 24-32 [facility] [id number] 02:20:00 Test Item Value Reference Range Interpretation Comments Calcium Lvl (test code = Calcium Lvl) 8.7 8.5-10.5 [facility] [id number] 02:20:00 Test Item Value Reference Range Interpretation Comments Total Protein (test code = Total 7.0 6.4-8.4 Protein) [facility] [id number] 02:20:00 Test Item Value Reference Range Interpretation Comments Albumin Lvl (test code = Albumin Lvl) 3.4 3.5-5.0 [facility] [id number] 02:20:00 Test Item Value Reference Range Interpretation Comments ALT (test code = ALT) 18 See_Comment [Auto mated message] The system which ge nerated this result transmit lavon reference range : <=65. The reference range was not used to interpr et this result as dionne l/abnormal. [facility] [id number] 02:20:00 Test Item Value Reference Range Interpretation Comments AST (test code = AST) 27 See_Comment [Auto mated message] The system which ge nerated this result transmit lavon reference range : <=37. The reference range was not used to interpr et this result as dionne l/abnormal. [facility] [id number] 02:20:00 Test Item Value Reference Range Interpretation Comments Alk Phos (test code = Alk Phos) 57 39-136 [facility] [id number] 02:20:00 Test Item Value Reference Range Interpretation Comments Bili Total (test code = Bili Total) 1.0 0.2-1.3 [facility] [id number] 02:20:00 Test Item Value Reference Range Interpretation Comments AGAP (test code = AGAP) 12.2 10.0-20.0 [facility] [employer] [id number] 02:20:00 Test Item Value Reference Range Interpretation Comments B/C Ratio (test code = B/C Ratio) 24 1 6-25 [facility] [id number] 02:20:00 Test Item Value Reference Range Interpretation Comments Globulin (test code = Globulin) 3.6 2.7-4.2 [facility] [employer] [id number] 02:20:00 Test Item Value Reference Range Interpretation Comments A/G Ratio (test code = A/G Ratio) 0.9 1 0.7-1.6 [facility]2022-07-25 02:20:00 Test Item Value Reference Range Interpretation Comments eGFR (test code = eGFR) 62 [facility] CenterTogoqmaMITGTIBGSA2749-92-94 02:20:00 Test Item Value Reference Range Interpretation Comments WBC (test code = WBC) 8.6 3.7-10.4 [facility] CenterKohevhnNKTAQQYEDQ5699-80-94 02:20:00 Test Item Value Reference Range Interpretation Comments RBC (test code = RBC) 3.58 4.20-5.40 [facility] CenterYaxqahlRJMGRONIOX8465-91-06 02:20:00 Test Item Value Reference Range Interpretation Comments Hgb (test code = Hgb) 8.8 12.0-16.0 [facility] CenterOfwyjqbHLMOJMEXBX8117-31-25 02:20:00 Test Item Value Reference Range Interpretation Comments Hct (test code = Hct) 27.1 36.0-48.0 [facility] CenterFqjdjogOIRJLDTGWE7663-85-96 02:20:00 Test Item Value Reference Range Interpretation Comments MCV (test code = MCV) 75.6 80.0-98.0 [facility] CenterZnxlllwSUDECZLUCA6605-92-95 02:20:00 Test Item Value Reference Range Interpretation Comments MCH (test code = MCH) 24.5 pg 27.0-31.0 [facility] CenterMedoyhvYWSYDWCOZA2109-99-12 02:20:00 Test Item Value Reference Range Interpretation Comments MCHC (test code = MCHC) 32.4 32.0-36.0 [facility] CenterGdtgekbPUJDJDACIO6361-65-71 02:20:00 Test Item Value Reference Range Interpretation Comments RDW (test code = RDW) 21.1 11.5-14.5 [facility] CenterXmmoqltMWNHABAVYJ0012-35-59 02:20:00 Test Item Value Reference Range Interpretation Comments Platelet (test code = Platelet) 297 133-450 [facility] CenterHntogcgOHGMHOWJWF0427-35-18 02:20:00 Test Item Value Reference Range Interpretation Comments MPV (test code = MPV) 7.5 7.4-10.4 [facility] CenterIsnztnyUIILTREPHV2021-55-48 02:20:00 Test Item Value Reference Range Interpretation Comments Segs (test code = Segs) 85.8 45.0-75.0 [facility] CenterIdjklrwRDCOLXEKNI2894-62-31 02:20:00 Test Item Value Reference Range Interpretation Comments Lymphocytes (test code = Lymphocytes) 8.5 20.0-40.0 [facility] CenterLwizfxhCUSXUZUQPN1785-96-17 02:20:00 Test Item Value Reference Range Interpretation Comments Monocytes (test code = Monocytes) 5.0 2.0-12.0 [facility] CenterIdgoogxAJAAQWUMGA5079-19-12 02:20:00 Test Item Value Reference Range Interpretation Comments Eosinophils (test code = 0.3 See_Comment [A utomated message] The Eosinophils) system which ge nerated this result tra nsmitted reference range : <=4.0. The reference r hugo was not used to int erpret this result as normal/abnormal . [facility] CenterPwcttfaMYBXFYRIFH3120-40-84 02:20:00 Test Item Value Reference Range Interpretation Comments Basophils (test code = 0.4 See_Comment [Aut omated message] The Basophils) system which ge nerated this result tra nsmitted reference range : <=1.0. The reference r hugo was not used to int erpret this result as normal/abnormal . [facility] CenterDhqdvssSEIJKXLJAB0893-49-55 02:20:00 Test Item Value Reference Range Interpretation Comments Neutrophils # (test code = Neutrophils 7.4 1.5-8.1 #) [facility] CenterEieqypjEORSGDRHLO7715-12-21 02:20:00 Test Item Value Reference Range Interpretation Comments Lymphocytes # (test code = Lymphocytes 0.7 1.0-5.5 #) [facility] CenterStfficbGSWZJAGOAS2027-50-12 02:20:00 Test Item Value Reference Range Interpretation Comments Monocytes # (test code 0.4 See_Comment [Aut omated message] The = Monocytes #) system which generated this result tra nsmitted reference range : <=0.8. The reference r hugo was not used to int erpret this result as normal/abnormal . [facility] CenterWmrhpbbAQRHOFARHQ6377-02-28 02:20:00 Test Item Value Reference Range Interpretation Comments Microcyte (test code = 1+ *ABN*(06/12/22 Microcyte) 9:20 PM) [facility] [id number] 02:20:00 Test Item Value Reference Range Interpretation Comments HS Troponin I (test code = HS Troponin 52 I) [facility]villeCHEM [id number] 02:20:00 Test Item Value Reference Range Interpretation Comments Glucose Lvl (test code = Glucose Lvl) 103 70-99 [place] 852652-07-25 02:20:00 Test Item Value Reference Range Interpretation Comments BUN (test code = BUN) 22 7-22 [place] 852652-07-25 02:20:00 Test Item Value Reference Range Interpretation Comments Creatinine Lvl (test code = Creatinine 0.90 0.50-1.40 Lvl) [place] 852652-07-25 02:20:00 Test Item Value Reference Range Interpretation Comments Sodium Lvl (test code = Sodium Lvl) 131 135-145 [place] 852652-07-25 02:20:00 Test Item Value Reference Range Interpretation Comments Potassium Lvl (test code = Potassium 4.2 3.5-5.1 Lvl) [place] 852652-07-25 02:20:00 Test Item Value Reference Range Interpretation Comments Chloride Lvl (test code = Chloride Lvl) 97 95-109 [place] 852652-07-25 02:20:00 Test Item Value Reference Range Interpretation Comments CO2 (test code = CO2) 26 24-32 [place] 852652-07-25 02:20:00 Test Item Value Reference Range Interpretation Comments Calcium Lvl (test code = Calcium Lvl) 8.7 8.5-10.5 [place] 852652-07-25 02:20:00 Test Item Value Reference Range Interpretation Comments Total Protein (test code = Total 7.0 6.4-8.4 Protein) [place] 852652-07-25 02:20:00 Test Item Value Reference Range Interpretation Comments Albumin Lvl (test code = Albumin Lvl) 3.4 3.5-5.0 [place] 852652-07-25 02:20:00 Test Item Value Reference Range Interpretation Comments ALT (test code = ALT) 18 See_Comment [Auto mated message] The system which ge nerated this result transmit lavon reference range : <=65. The reference range was not used to interpr et this result as dionne l/abnormal. [place] 852652-07-25 02:20:00 Test Item Value Reference Range Interpretation Comments AST (test code = AST) 27 See_Comment [Auto mated message] The system which ge nerated this result transmit lavon reference range : <=37. The reference range was not used to interpr et this result as dionne l/abnormal. [place] 852652-07-25 02:20:00 Test Item Value Reference Range Interpretation Comments Alk Phos (test code = Alk Phos) 57 39-136 [place] 852652-07-25 02:20:00 Test Item Value Reference Range Interpretation Comments Bili Total (test code = Bili Total) 1.0 0.2-1.3 [place] 852652-07-25 02:20:00 Test Item Value Reference Range Interpretation Comments AGAP (test code = AGAP) 12.2 10.0-20.0 [place] 852652-07-25 02:20:00 Test Item Value Reference Range Interpretation Comments B/C Ratio (test code = B/C Ratio) 24 1 6-25 [place] 852652-07-25 02:20:00 Test Item Value Reference Range Interpretation Comments Globulin (test code = Globulin) 3.6 2.7-4.2 [place] 852652-07-25 02:20:00 Test Item Value Reference Range Interpretation Comments A/G Ratio (test code = A/G Ratio) 0.9 1 0.7-1.6 [place] 852652-07-25 02:20:00 Test Item Value Reference Range Interpretation Comments eGFR (test code = eGFR) 62 [place] 778932-07-25 02:20:00 Test Item Value Reference Range Interpretation Comments WBC (test code = WBC) 8.6 3.7-10.4 [place] 778932-07-25 02:20:00 Test Item Value Reference Range Interpretation Comments RBC (test code = RBC) 3.58 4.20-5.40 [place] 778932-07-25 02:20:00 Test Item Value Reference Range Interpretation Comments Hgb (test code = Hgb) 8.8 12.0-16.0 [place] 125[address]-07-25 02:20:00 Test Item Value Reference Range Interpretation Comments Hct (test code = Hct) 27.1 36.0-48.0 [place] 778932-07-25 02:20:00 Test Item Value Reference Range Interpretation Comments MCV (test code = MCV) 75.6 80.0-98.0 [facility]H0287[facility] 02:20:00 Test Item Value Reference Range Interpretation Comments MCH (test code = MCH) 24.5 pg 27.0-31.0 [facility]PbhfajaWUVXOSQAAT9441-05-86 02:20:00 Test Item Value Reference Range Interpretation Comments MCHC (test code = MCHC) 32.4 32.0-36.0 [facility] HospitalUficdqqLFBQJDTMBG1979-16-03 02:20:00 Test Item Value Reference Range Interpretation Comments RDW (test code = RDW) 21.1 11.5-14.5 [facility]IkgvqxsTSDVZUNHLK3319-72-91 02:20:00 Test Item Value Reference Range Interpretation Comments Platelet (test code = Platelet) 297 133-450 [facility] CenterOfvreqgQXNIOSMWOP5651-92-82 02:20:00 Test Item Value Reference Range Interpretation Comments MPV (test code = MPV) 7.5 7.4-10.4 [facility] CenterEvbwtfsKETINWKIQR3401-58-22 02:20:00 Test Item Value Reference Range Interpretation Comments Segs (test code = Segs) 85.8 45.0-75.0 [facility] [id number] 02:20:00 Test Item Value Reference Range Interpretation Comments HS Troponin I (test code = HS Troponin 52 I) [facility] [id number] 02:20:00 Test Item Value Reference Range Interpretation Comments Glucose Lvl (test code = Glucose Lvl) 103 70-99 [facility]2022-07-25 02:20:00 Test Item Value Reference Range Interpretation Comments BUN (test code = BUN) 22 7-22 [facility]2022-07-25 02:20:00 Test Item Value Reference Range Interpretation Comments Creatinine Lvl (test code = Creatinine 0.90 0.50-1.40 Lvl) [facility]2022-07-25 02:20:00 Test Item Value Reference Range Interpretation Comments Sodium Lvl (test code = Sodium Lvl) 131 135-145 [facility]2022-07-25 02:20:00 Test Item Value Reference Range Interpretation Comments Potassium Lvl (test code = Potassium 4.2 3.5-5.1 Lvl) [facility] [place] [id number] 02:20:00 Test Item Value Reference Range Interpretation Comments Chloride Lvl (test code = Chloride Lvl) 97 95-109 [place] 852652-07-25 02:20:00 Test Item Value Reference Range Interpretation Comments CO2 (test code = CO2) 26 24-32 [place] 852652-07-25 02:20:00 Test Item Value Reference Range Interpretation Comments Calcium Lvl (test code = Calcium Lvl) 8.7 8.5-10.5 [place] 852652-07-25 02:20:00 Test Item Value Reference Range Interpretation Comments Total Protein (test code = Total 7.0 6.4-8.4 Protein) [place] 852652-07-25 02:20:00 Test Item Value Reference Range Interpretation Comments Albumin Lvl (test code = Albumin Lvl) 3.4 3.5-5.0 [place] 852652-07-25 02:20:00 Test Item Value Reference Range Interpretation Comments ALT (test code = ALT) 18 See_Comment [Auto mated message] The system which ge nerated this result transmit lavon reference range : <=65. The reference range was not used to interpr et this result as dionne l/abnormal. [facility] [id number] 02:20:00 Test Item Value Reference Range Interpretation Comments AST (test code = AST) 27 See_Comment [Auto mated message] The system which ge nerated this result transmit lavon reference range : <=37. The reference range was not used to interpr et this result as dionne l/abnormal. [facility] [id number] 02:20:00 Test Item Value Reference Range Interpretation Comments Alk Phos (test code = Alk Phos) 57 39-136 [place] 852652-07-25 02:20:00 Test Item Value Reference Range Interpretation Comments Bili Total (test code = Bili Total) 1.0 0.2-1.3 [place] 852652-07-25 02:20:00 Test Item Value Reference Range Interpretation Comments AGAP (test code = AGAP) 12.2 10.0-20.0 [facility] [id number] 02:20:00 Test Item Value Reference Range Interpretation Comments B/C Ratio (test code = B/C Ratio) 24 1 6-25 [facility]2022-07-25 02:20:00 Test Item Value Reference Range Interpretation Comments Globulin (test code = Globulin) 3.6 2.7-4.2 [place] 852652-07-25 02:20:00 Test Item Value Reference Range Interpretation Comments A/G Ratio (test code = A/G Ratio) 0.9 1 0.7-1.6 [facility]2022-07-25 02:20:00 Test Item Value Reference Range Interpretation Comments eGFR (test code = eGFR) 62 [facility] CenterYsqlyjgMMKGKKTQLR9538-93-21 02:20:00 Test Item Value Reference Range Interpretation Comments WBC (test code = WBC) 8.6 3.7-10.4 [place] 778932-07-25 02:20:00 Test Item Value Reference Range Interpretation Comments RBC (test code = RBC) 3.58 4.20-5.40 [place] 778932-07-25 02:20:00 Test Item Value Reference Range Interpretation Comments Hgb (test code = Hgb) 8.8 12.0-16.0 [place] 778932-07-25 02:20:00 Test Item Value Reference Range Interpretation Comments Hct (test code = Hct) 27.1 36.0-48.0 [facility] CenterBmaotheCBNNNQVWMX5185-08-16 02:20:00 Test Item Value Reference Range Interpretation Comments MCV (test code = MCV) 75.6 80.0-98.0 [place] 778932-07-25 02:20:00 Test Item Value Reference Range Interpretation Comments MCH (test code = MCH) 24.5 pg 27.0-31.0 [place] 778932-07-25 02:20:00 Test Item Value Reference Range Interpretation Comments MCHC (test code = MCHC) 32.4 32.0-36.0 [place] 778932-07-25 02:20:00 Test Item Value Reference Range Interpretation Comments RDW (test code = RDW) 21.1 11.5-14.5 [place] 778932-07-25 02:20:00 Test Item Value Reference Range Interpretation Comments Platelet (test code = Platelet) 297 133-450 [place] 778932-07-25 02:20:00 Test Item Value Reference Range Interpretation Comments MPV (test code = MPV) 7.5 7.4-10.4 [place] 778932-07-25 02:20:00 Test Item Value Reference Range Interpretation Comments Segs (test code = Segs) 85.8 45.0-75.0 [place] 778932-07-25 02:20:00 Test Item Value Reference Range Interpretation Comments Lymphocytes (test code = Lymphocytes) 8.5 20.0-40.0 [place] 778932-07-25 02:20:00 Test Item Value Reference Range Interpretation Comments Monocytes (test code = Monocytes) 5.0 2.0-12.0 [place] 778932-07-25 02:20:00 Test Item Value Reference Range Interpretation Comments Eosinophils (test code = 0.3 See_Comment [A utomated message] The Eosinophils) system which ge nerated this result tra nsmitted reference range : <=4.0. The reference r hugo was not used to int erpret this result as normal/abnormal . [place] 778932-07-25 02:20:00 Test Item Value Reference Range Interpretation Comments Basophils (test code = 0.4 See_Comment [Aut omated message] The Basophils) system which ge nerated this result tra nsmitted reference range : <=1.0. The reference r hugo was not used to int erpret this result as normal/abnormal . [facility] CenterLmxccogZZRGPSFTQZ8579-44-53 02:20:00 Test Item Value Reference Range Interpretation Comments Neutrophils # (test code = Neutrophils 7.4 1.5-8.1 #) [place] 778932-07-25 02:20:00 Test Item Value Reference Range Interpretation Comments Lymphocytes # (test code = Lymphocytes 0.7 1.0-5.5 #) [place] 125[address]-07-25 02:20:00 Test Item Value Reference Range Interpretation Comments Monocytes # (test code 0.4 See_Comment [Aut omated message] The = Monocytes #) system which generated this result tra nsmitted reference range : <=0.8. The reference r hugo was not used to int erpret this result as normal/abnormal . [place] 778932-07-25 02:20:00 Test Item Value Reference Range Interpretation Comments Microcyte (test code = 1+ *ABN*(06/12/22 Microcyte) 9:20 PM) [place] 778932-07-25 02:20:00 Test Item Value Reference Range Interpretation Comments Lymphocytes (test code = Lymphocytes) 8.5 20.0-40.0 [place] 778932-07-25 02:20:00 Test Item Value Reference Range Interpretation Comments Monocytes (test code = Monocytes) 5.0 2.0-12.0 [place] 778932-07-25 02:20:00 Test Item Value Reference Range Interpretation Comments Eosinophils (test code = 0.3 See_Comment [A utomated message] The Eosinophils) system which ge nerated this result tra nsmitted reference range : <=4.0. The reference r hugo was not used to int erpret this result as normal/abnormal . [place] 125[address]-07-25 02:20:00 Test Item Value Reference Range Interpretation Comments Basophils (test code = 0.4 See_Comment [Aut omated message] The Basophils) system which ge nerated this result tra nsmitted reference range : <=1.0. The reference r hugo was not used to int erpret this result as normal/abnormal . [place] 778932-07-25 02:20:00 Test Item Value Reference Range Interpretation Comments Neutrophils # (test code = Neutrophils 7.4 1.5-8.1 #) [place] 778932-07-25 02:20:00 Test Item Value Reference Range Interpretation Comments Lymphocytes # (test code = Lymphocytes 0.7 1.0-5.5 #) [place] 778932-07-25 02:20:00 Test Item Value Reference Range Interpretation Comments Monocytes # (test code 0.4 See_Comment [Aut omated message] The = Monocytes #) system which generated this result tra nsmitted reference range : <=0.8. The reference r hugo was not used to int erpret this result as normal/abnormal . [place] 778932-07-25 02:20:00 Test Item Value Reference Range Interpretation Comments Microcyte (test code = 1+ *ABN*(06/12/22 Microcyte) 9:20 PM) [facility]DIMCLAREN LAPE[facility] [id number] 02:20:00 Test Item Value Reference Range Interpretation Comments HS Troponin I (test code = HS Troponin 52 I) [facility]villeCHEM [id number] 02:20:00 Test Item Value Reference Range Interpretation Comments Glucose Lvl (test code = Glucose Lvl) 103 70-99 [facility] [id number] 02:20:00 Test Item Value Reference Range Interpretation Comments BUN (test code = BUN) 22 7-22 [facility] [id number] 02:20:00 Test Item Value Reference Range Interpretation Comments Creatinine Lvl (test code = Creatinine 0.90 0.50-1.40 Lvl) [facility] [id number] 02:20:00 Test Item Value Reference Range Interpretation Comments Sodium Lvl (test code = Sodium Lvl) 131 135-145 [facility]2022-07-25 02:20:00 Test Item Value Reference Range Interpretation Comments Potassium Lvl (test code = Potassium 4.2 3.5-5.1 Lvl) [facility] [id number] 02:20:00 Test Item Value Reference Range Interpretation Comments Chloride Lvl (test code = Chloride Lvl) 97 95-109 [facility] [id number] 02:20:00 Test Item Value Reference Range Interpretation Comments CO2 (test code = CO2) 26 24-32 [facility]2022-07-25 02:20:00 Test Item Value Reference Range Interpretation Comments Calcium Lvl (test code = Calcium Lvl) 8.7 8.5-10.5 [facility]2022-07-25 02:20:00 Test Item Value Reference Range Interpretation Comments Total Protein (test code = Total 7.0 6.4-8.4 Protein) [facility]2022-07-25 02:20:00 Test Item Value Reference Range Interpretation Comments Albumin Lvl (test code = Albumin Lvl) 3.4 3.5-5.0 [facility]2022-07-25 02:20:00 Test Item Value Reference Range Interpretation Comments ALT (test code = ALT) 18 See_Comment [Auto mated message] The system which ge nerated this result transmit lavon reference range : <=65. The reference range was not used to interpr et this result as dionne l/abnormal. [facility]2022-07-25 02:20:00 Test Item Value Reference Range Interpretation Comments AST (test code = AST) 27 See_Comment [Auto mated message] The system which ge nerated this result transmit lavon reference range : <=37. The reference range was not used to interpr et this result as dionne l/abnormal. [place] 852652-07-25 02:20:00 Test Item Value Reference Range Interpretation Comments Alk Phos (test code = Alk Phos) 57 39-136 [place] 852652-07-25 02:20:00 Test Item Value Reference Range Interpretation Comments Bili Total (test code = Bili Total) 1.0 0.2-1.3 [place] 852652-07-25 02:20:00 Test Item Value Reference Range Interpretation Comments AGAP (test code = AGAP) 12.2 10.0-20.0 [place] 852652-07-25 02:20:00 Test Item Value Reference Range Interpretation Comments B/C Ratio (test code = B/C Ratio) 24 1 6-25 [place] 852652-07-25 02:20:00 Test Item Value Reference Range Interpretation Comments Globulin (test code = Globulin) 3.6 2.7-4.2 [place] 852652-07-25 02:20:00 Test Item Value Reference Range Interpretation Comments A/G Ratio (test code = A/G Ratio) 0.9 1 0.7-1.6 [place] 852652-07-25 02:20:00 Test Item Value Reference Range Interpretation Comments eGFR (test code = eGFR) 62 [place] 778932-07-25 02:20:00 Test Item Value Reference Range Interpretation Comments WBC (test code = WBC) 8.6 3.7-10.4 [place] 778932-07-25 02:20:00 Test Item Value Reference Range Interpretation Comments RBC (test code = RBC) 3.58 4.20-5.40 [place] 778932-07-25 02:20:00 Test Item Value Reference Range Interpretation Comments Hgb (test code = Hgb) 8.8 12.0-16.0 [place] 778932-07-25 02:20:00 Test Item Value Reference Range Interpretation Comments Hct (test code = Hct) 27.1 36.0-48.0 [facility] CenterRcgktlwCFEYDCQBBQ6506-19-40 02:20:00 Test Item Value Reference Range Interpretation Comments MCV (test code = MCV) 75.6 80.0-98.0 [facility] CenterBfzsazhLQHONZYKGH2301-39-22 02:20:00 Test Item Value Reference Range Interpretation Comments MCH (test code = MCH) 24.5 pg 27.0-31.0 [facility] CenterHpylkrbXXPEBBGZUJ2047-27-13 02:20:00 Test Item Value Reference Range Interpretation Comments MCHC (test code = MCHC) 32.4 32.0-36.0 [facility] CenterXenqccaPKPELNNQYE6690-16-81 02:20:00 Test Item Value Reference Range Interpretation Comments RDW (test code = RDW) 21.1 11.5-14.5 [facility] CenterBaobmzhEAGTXEOZUB8847-98-75 02:20:00 Test Item Value Reference Range Interpretation Comments Platelet (test code = Platelet) 297 133-450 [facility] CenterYnzglmaZGEFLBMFNG5996-63-77 02:20:00 Test Item Value Reference Range Interpretation Comments MPV (test code = MPV) 7.5 7.4-10.4 [facility] CenterZylphuzEUESJCNNYD8979-53-66 02:20:00 Test Item Value Reference Range Interpretation Comments Segs (test code = Segs) 85.8 45.0-75.0 [facility] CenterZttwnfgYTMJNXUNNC0510-89-32 02:20:00 Test Item Value Reference Range Interpretation Comments Lymphocytes (test code = Lymphocytes) 8.5 20.0-40.0 [facility] CenterAvjxidqAPSXDEVQPQ7235-59-12 02:20:00 Test Item Value Reference Range Interpretation Comments Monocytes (test code = Monocytes) 5.0 2.0-12.0 [place] 778932-07-25 02:20:00 Test Item Value Reference Range Interpretation Comments Eosinophils (test code = 0.3 See_Comment [A utomated message] The Eosinophils) system which ge nerated this result tra nsmitted reference range : <=4.0. The reference r hugo was not used to int erpret this result as normal/abnormal . [facility] CenterRhlemxsCDWDDQQFSG6726-37-76 02:20:00 Test Item Value Reference Range Interpretation Comments Basophils (test code = 0.4 See_Comment [Aut omated message] The Basophils) system which ge nerated this result tra nsmitted reference range : <=1.0. The reference r hugo was not used to int erpret this result as normal/abnormal . [facility] CenterVvwsavqWGWUNCWJLE6443-25-08 02:20:00 Test Item Value Reference Range Interpretation Comments Neutrophils # (test code = Neutrophils 7.4 1.5-8.1 #) [facility] CenterAhptpvjLIGNGHPXAF9399-98-70 02:20:00 Test Item Value Reference Range Interpretation Comments Lymphocytes # (test code = Lymphocytes 0.7 1.0-5.5 #) [facility] CenterHgeedscRPSKRMOIRQ6136-07-27 02:20:00 Test Item Value Reference Range Interpretation Comments Monocytes # (test code 0.4 See_Comment [Aut omated message] The = Monocytes #) system which generated this result tra nsmitted reference range : <=0.8. The reference r hugo was not used to int erpret this result as normal/abnormal . [facility] CenterLmlehtaWYDKJOFPPS3037-12-32 02:20:00 Test Item Value Reference Range Interpretation Comments Microcyte (test code = 1+ *ABN*(06/12/22 Microcyte) 9:20 PM) [facility]ARD[facility] [id number] 02:20:00 Test Item Value Reference Range Interpretation Comments HS Troponin I (test code = HS Troponin 52 I) [facility]2022-07-25 02:20:00 Test Item Value Reference Range Interpretation Comments Glucose Lvl (test code = Glucose Lvl) 103 70-99 [facility]2022-07-25 02:20:00 Test Item Value Reference Range Interpretation Comments BUN (test code = BUN) 22 7-22 [place] 852652-07-25 02:20:00 Test Item Value Reference Range Interpretation Comments Creatinine Lvl (test code = Creatinine 0.90 0.50-1.40 Lvl) [facility]2022-07-25 02:20:00 Test Item Value Reference Range Interpretation Comments Sodium Lvl (test code = Sodium Lvl) 131 135-145 [facility]2022-07-25 02:20:00 Test Item Value Reference Range Interpretation Comments Potassium Lvl (test code = Potassium 4.2 3.5-5.1 Lvl) [place] 852652-07-25 02:20:00 Test Item Value Reference Range Interpretation Comments Chloride Lvl (test code = Chloride Lvl) 97 95-109 [place] 852652-07-25 02:20:00 Test Item Value Reference Range Interpretation Comments CO2 (test code = CO2) 26 24-32 [place] 852652-07-25 02:20:00 Test Item Value Reference Range Interpretation Comments Calcium Lvl (test code = Calcium Lvl) 8.7 8.5-10.5 [place] 852652-07-25 02:20:00 Test Item Value Reference Range Interpretation Comments Total Protein (test code = Total 7.0 6.4-8.4 Protein) [place] 852652-07-25 02:20:00 Test Item Value Reference Range Interpretation Comments Albumin Lvl (test code = Albumin Lvl) 3.4 3.5-5.0 [place] 852652-07-25 02:20:00 Test Item Value Reference Range Interpretation Comments ALT (test code = ALT) 18 See_Comment [Auto mated message] The system which ge nerated this result transmit lavon reference range : <=65. The reference range was not used to interpr et this result as dionne l/abnormal. [place] 852652-07-25 02:20:00 Test Item Value Reference Range Interpretation Comments AST (test code = AST) 27 See_Comment [Auto mated message] The system which ge nerated this result transmit lavon reference range : <=37. The reference range was not used to interpr et this result as dionne l/abnormal. [place] 852652-07-25 02:20:00 Test Item Value Reference Range Interpretation Comments Alk Phos (test code = Alk Phos) 57 39-136 [place] 852652-07-25 02:20:00 Test Item Value Reference Range Interpretation Comments Bili Total (test code = Bili Total) 1.0 0.2-1.3 [place] 852652-07-25 02:20:00 Test Item Value Reference Range Interpretation Comments AGAP (test code = AGAP) 12.2 10.0-20.0 [facility] [id number] 02:20:00 Test Item Value Reference Range Interpretation Comments B/C Ratio (test code = B/C Ratio) 24 1 6-25 [facility]2022-07-25 02:20:00 Test Item Value Reference Range Interpretation Comments Globulin (test code = Globulin) 3.6 2.7-4.2 [facility]2022-07-25 02:20:00 Test Item Value Reference Range Interpretation Comments A/G Ratio (test code = A/G Ratio) 0.9 1 0.7-1.6 [facility]2022-07-25 02:20:00 Test Item Value Reference Range Interpretation Comments eGFR (test code = eGFR) 62 [facility] CenterQlahpxcUQCHZUOLNE4174-69-93 02:20:00 Test Item Value Reference Range Interpretation Comments WBC (test code = WBC) 8.6 3.7-10.4 [facility] CenterMqweupwVLZTFLLDRY9797-62-07 02:20:00 Test Item Value Reference Range Interpretation Comments RBC (test code = RBC) 3.58 4.20-5.40 [facility] CenterNtqojvyRNLYSKOUMP7781-25-82 02:20:00 Test Item Value Reference Range Interpretation Comments Hgb (test code = Hgb) 8.8 12.0-16.0 [facility] CenterWzlsqevXSIMANYHAI3697-08-79 02:20:00 Test Item Value Reference Range Interpretation Comments Hct (test code = Hct) 27.1 36.0-48.0 [facility] CenterAubelfrEIZAROGSIP3069-76-02 02:20:00 Test Item Value Reference Range Interpretation Comments MCV (test code = MCV) 75.6 80.0-98.0 [facility] CenterDxsmuhmFMXEGXAANU7569-67-51 02:20:00 Test Item Value Reference Range Interpretation Comments MCH (test code = MCH) 24.5 pg 27.0-31.0 [facility] CenterCvbaklbGOEZQMXDCL3703-78-37 02:20:00 Test Item Value Reference Range Interpretation Comments MCHC (test code = MCHC) 32.4 32.0-36.0 [facility] CenterLnijawaHJRTQOROUF3721-02-47 02:20:00 Test Item Value Reference Range Interpretation Comments RDW (test code = RDW) 21.1 11.5-14.5 [facility] CenterKwzgmmnMELVAHWLWV5874-89-41 02:20:00 Test Item Value Reference Range Interpretation Comments Platelet (test code = Platelet) 297 133-450 [facility] CenterRagwyfqRQKIZTIQHF5969-04-09 02:20:00 Test Item Value Reference Range Interpretation Comments MPV (test code = MPV) 7.5 7.4-10.4 [place] 778932-07-25 02:20:00 Test Item Value Reference Range Interpretation Comments Segs (test code = Segs) 85.8 45.0-75.0 [place] 778932-07-25 02:20:00 Test Item Value Reference Range Interpretation Comments Lymphocytes (test code = Lymphocytes) 8.5 20.0-40.0 [place] 778932-07-25 02:20:00 Test Item Value Reference Range Interpretation Comments Monocytes (test code = Monocytes) 5.0 2.0-12.0 [place] 778932-07-25 02:20:00 Test Item Value Reference Range Interpretation Comments Eosinophils (test code = 0.3 See_Comment [A utomated message] The Eosinophils) system which ge nerated this result tra nsmitted reference range : <=4.0. The reference r hugo was not used to int erpret this result as normal/abnormal . [facility] CenterFaweqvmTPQCAQJBCD5532-58-56 02:20:00 Test Item Value Reference Range Interpretation Comments Basophils (test code = 0.4 See_Comment [Aut omated message] The Basophils) system which ge nerated this result tra nsmitted reference range : <=1.0. The reference r hugo was not used to int erpret this result as normal/abnormal . [facility]GydfjhyBWVWZTTZXE2088-36-14 02:20:00 Test Item Value Reference Range Interpretation Comments Neutrophils # (test code = Neutrophils 7.4 1.5-8.1 #) [place] 778932-07-25 02:20:00 Test Item Value Reference Range Interpretation Comments Lymphocytes # (test code = Lymphocytes 0.7 1.0-5.5 #) [place] 778932-07-25 02:20:00 Test Item Value Reference Range Interpretation Comments Monocytes # (test code 0.4 See_Comment [Aut omated message] The = Monocytes #) system which generated this result tra nsmitted reference range : <=0.8. The reference r hugo was not used to int erpret this result as normal/abnormal . [place] 778932-07-25 02:20:00 Test Item Value Reference Range Interpretation Comments Microcyte (test code = 1+ *ABN*(06/12/22 Microcyte) 9:20 PM) [facility] [id number] 02:20:00 Test Item Value Reference Range Interpretation Comments HS Troponin I (test code = HS Troponin 52 I) [facility] [id number] 02:20:00 Test Item Value Reference Range Interpretation Comments Glucose Lvl (test code = Glucose Lvl) 103 70-99 [facility]2022-07-25 02:20:00 Test Item Value Reference Range Interpretation Comments BUN (test code = BUN) 22 7- [facility]2022-07-25 02:20:00 Test Item Value Reference Range Interpretation Comments Creatinine Lvl (test code = Creatinine 0.90 0.50-1.40 Lvl) [facility]2022-07-25 02:20:00 Test Item Value Reference Range Interpretation Comments Sodium Lvl (test code = Sodium Lvl) 131 135-145 [facility]2022-07-25 02:20:00 Test Item Value Reference Range Interpretation Comments Potassium Lvl (test code = Potassium 4.2 3.5-5.1 Lvl) [facility]2022-07-25 02:20:00 Test Item Value Reference Range Interpretation Comments Chloride Lvl (test code = Chloride Lvl) 97 95-109 [facility]2022-07-25 02:20:00 Test Item Value Reference Range Interpretation Comments CO2 (test code = CO2) 26 24-32 [facility]2022-07-25 02:20:00 Test Item Value Reference Range Interpretation Comments Calcium Lvl (test code = Calcium Lvl) 8.7 8.5-10.5 [facility]2022-07-25 02:20:00 Test Item Value Reference Range Interpretation Comments Total Protein (test code = Total 7.0 6.4-8.4 Protein) [facility]2022-07-25 02:20:00 Test Item Value Reference Range Interpretation Comments Albumin Lvl (test code = Albumin Lvl) 3.4 3.5-5.0 [facility]2022-07-25 02:20:00 Test Item Value Reference Range Interpretation Comments ALT (test code = ALT) 18 See_Comment [Auto mated message] The system which ge nerated this result transmit lavon reference range : <=65. The reference range was not used to interpr et this result as dionne l/abnormal. [facility] [id number] 02:20:00 Test Item Value Reference Range Interpretation Comments AST (test code = AST) 27 See_Comment [Auto mated message] The system which ge nerated this result transmit lavon reference range : <=37. The reference range was not used to interpr et this result as dionne l/abnormal. [facility] [id number] 02:20:00 Test Item Value Reference Range Interpretation Comments Alk Phos (test code = Alk Phos) 57 39-136 [facility] [id number] 02:20:00 Test Item Value Reference Range Interpretation Comments Bili Total (test code = Bili Total) 1.0 0.2-1.3 [facility] [id number] 02:20:00 Test Item Value Reference Range Interpretation Comments AGAP (test code = AGAP) 12.2 10.0-20.0 [facility] [id number] 02:20:00 Test Item Value Reference Range Interpretation Comments B/C Ratio (test code = B/C Ratio) 24 1 6-25 [facility] [id number] 02:20:00 Test Item Value Reference Range Interpretation Comments Globulin (test code = Globulin) 3.6 2.7-4.2 [facility] [id number] 02:20:00 Test Item Value Reference Range Interpretation Comments A/G Ratio (test code = A/G Ratio) 0.9 1 0.7-1.6 [facility] [id number] 02:20:00 Test Item Value Reference Range Interpretation Comments eGFR (test code = eGFR) 62 [place] 778932-07-25 02:20:00 Test Item Value Reference Range Interpretation Comments WBC (test code = WBC) 8.6 3.7-10.4 [place] 778932-07-25 02:20:00 Test Item Value Reference Range Interpretation Comments RBC (test code = RBC) 3.58 4.20-5.40 [facility]villeWdbyehcIGTOTSDCYV0010-35-28 02:20:00 Test Item Value Reference Range Interpretation Comments Hgb (test code = Hgb) 8.8 12.0-16.0 [facility] CenterKtuxqgwBGHPVLIUWR7995-32-72 02:20:00 Test Item Value Reference Range Interpretation Comments Hct (test code = Hct) 27.1 36.0-48.0 [facility] CenterOvknaxeXRXYOGDMDV9565-34-11 02:20:00 Test Item Value Reference Range Interpretation Comments MCV (test code = MCV) 75.6 80.0-98.0 [facility] CenterTnrjaqpUPVITYNYCS2996-56-93 02:20:00 Test Item Value Reference Range Interpretation Comments MCH (test code = MCH) 24.5 pg 27.0-31.0 [facility] CenterZtttblrYFOXEFUUEW9580-39-62 02:20:00 Test Item Value Reference Range Interpretation Comments MCHC (test code = MCHC) 32.4 32.0-36.0 [facility] CenterZwrhuscHIUXEJDWFJ8806-43-99 02:20:00 Test Item Value Reference Range Interpretation Comments RDW (test code = RDW) 21.1 11.5-14.5 [facility] CenterQlgzufhOFAVPZMBJN1683-77-13 02:20:00 Test Item Value Reference Range Interpretation Comments Platelet (test code = Platelet) 297 133-450 [facility] CenterKswypjyYDMARQMESC6017-36-48 02:20:00 Test Item Value Reference Range Interpretation Comments MPV (test code = MPV) 7.5 7.4-10.4 [facility] CenterIrxhszhQDBPOKSOBF6983-35-17 02:20:00 Test Item Value Reference Range Interpretation Comments Segs (test code = Segs) 85.8 45.0-75.0 [facility] CenterOcjmrncJLYEWVJPAW1766-66-28 02:20:00 Test Item Value Reference Range Interpretation Comments Lymphocytes (test code = Lymphocytes) 8.5 20.0-40.0 [facility] CenterZlstghrQRDPNOFFMC0040-13-54 02:20:00 Test Item Value Reference Range Interpretation Comments Monocytes (test code = Monocytes) 5.0 2.0-12.0 [facility] CenterEvlugqtALGYSDYCVE0086-43-66 02:20:00 Test Item Value Reference Range Interpretation Comments Eosinophils (test code = 0.3 See_Comment [A utomated message] The Eosinophils) system which ge nerated this result tra nsmitted reference range : <=4.0. The reference r hugo was not used to int erpret this result as normal/abnormal . [facility] GreenvilleBpasaukLWUPYJHLZE1755-98-21 02:20:00 Test Item Value Reference Range Interpretation Comments Basophils (test code = 0.4 See_Comment [Aut omated message] The Basophils) system which ge nerated this result tra nsmitted reference range : <=1.0. The reference r hugo was not used to int erpret this result as normal/abnormal . [facility]villeSdysocfLXASBDJMOE8953-30-58 02:20:00 Test Item Value Reference Range Interpretation Comments Neutrophils # (test code = Neutrophils 7.4 1.5-8.1 #) [facility]ED20[facility]-55 02:20:00 Test Item Value Reference Range Interpretation Comments Lymphocytes # (test code = Lymphocytes 0.7 1.0-5.5 #) [facility] CenterYschnbfRHHAUWMHPR9324-20-83 02:20:00 Test Item Value Reference Range Interpretation Comments Monocytes # (test code 0.4 See_Comment [Aut omated message] The = Monocytes #) system which generated this result tra nsmitted reference range : <=0.8. The reference r hugo was not used to int erpret this result as normal/abnormal . [facility] GreenvilleTzfimcmXNODHTPJQU3856-37-11 02:20:00 Test Item Value Reference Range Interpretation Comments Microcyte (test code = 1+ *ABN*(06/12/22 Microcyte) 9:20 PM) [facility] [id number] 02:20:00 Test Item Value Reference Range Interpretation Comments HS Troponin I (test code = HS Troponin 52 I) [facility] [id number] 02:20:00 Test Item Value Reference Range Interpretation Comments Glucose Lvl (test code = Glucose Lvl) 103 70-99 [facility] [id number] 02:20:00 Test Item Value Reference Range Interpretation Comments BUN (test code = BUN) 22 - [facility] [id number] 02:20:00 Test Item Value Reference Range Interpretation Comments Creatinine Lvl (test code = Creatinine 0.90 0.50-1.40 Lvl) [facility] [id number] 02:20:00 Test Item Value Reference Range Interpretation Comments Sodium Lvl (test code = Sodium Lvl) 131 135-145 [place] 852652-07-25 02:20:00 Test Item Value Reference Range Interpretation Comments Potassium Lvl (test code = Potassium 4.2 3.5-5.1 Lvl) [place] 852652-07-25 02:20:00 Test Item Value Reference Range Interpretation Comments Chloride Lvl (test code = Chloride Lvl) 97 95-109 [facility] TexasMelodigramEM[place] [id number] 02:20:00 Test Item Value Reference Range Interpretation Comments CO2 (test code = CO2) 26 24-32 [place] 852652-07-25 02:20:00 Test Item Value Reference Range Interpretation Comments Calcium Lvl (test code = Calcium Lvl) 8.7 8.5-10.5 [place] 852652-07-25 02:20:00 Test Item Value Reference Range Interpretation Comments Total Protein (test code = Total 7.0 6.4-8.4 Protein) [place] 852652-07-25 02:20:00 Test Item Value Reference Range Interpretation Comments Albumin Lvl (test code = Albumin Lvl) 3.4 3.5-5.0 [place] 852652-07-25 02:20:00 Test Item Value Reference Range Interpretation Comments ALT (test code = ALT) 18 See_Comment [Auto mated message] The system which ge nerated this result transmit lavon reference range : <=65. The reference range was not used to interpr et this result as dionne l/abnormal. [place] 852652-07-25 02:20:00 Test Item Value Reference Range Interpretation Comments AST (test code = AST) 27 See_Comment [Auto mated message] The system which ge nerated this result transmit lavon reference range : <=37. The reference range was not used to interpr et this result as dionne l/abnormal. [facility] [id number] 02:20:00 Test Item Value Reference Range Interpretation Comments Alk Phos (test code = Alk Phos) 57 39-136 [place] 852652-07-25 02:20:00 Test Item Value Reference Range Interpretation Comments Bili Total (test code = Bili Total) 1.0 0.2-1.3 [place] [address]-07-25 02:20:00 Test Item Value Reference Range Interpretation Comments AGAP (test code = AGAP) 12.2 10.0-20.0 [facility]2022-07-25 02:20:00 Test Item Value Reference Range Interpretation Comments B/C Ratio (test code = B/C Ratio) 24 1 6-25 [place] 852652-07-25 02:20:00 Test Item Value Reference Range Interpretation Comments Globulin (test code = Globulin) 3.6 2.7-4.2 [facility]2022-07-25 02:20:00 Test Item Value Reference Range Interpretation Comments A/G Ratio (test code = A/G Ratio) 0.9 1 0.7-1.6 [place] 852652-07-25 02:20:00 Test Item Value Reference Range Interpretation Comments eGFR (test code = eGFR) 62 [facility] CenterIxhwxqwKHPLTBWVIP4303-15-66 02:20:00 Test Item Value Reference Range Interpretation Comments WBC (test code = WBC) 8.6 3.7-10.4 [facility] CenterUvjeftjDACYKESDMK1255-94-44 02:20:00 Test Item Value Reference Range Interpretation Comments RBC (test code = RBC) 3.58 4.20-5.40 [place] 778932-07-25 02:20:00 Test Item Value Reference Range Interpretation Comments Hgb (test code = Hgb) 8.8 12.0-16.0 [place] 778932-07-25 02:20:00 Test Item Value Reference Range Interpretation Comments Hct (test code = Hct) 27.1 36.0-48.0 [place] 778932-07-25 02:20:00 Test Item Value Reference Range Interpretation Comments MCV (test code = MCV) 75.6 80.0-98.0 [place] 778932-07-25 02:20:00 Test Item Value Reference Range Interpretation Comments MCH (test code = MCH) 24.5 pg 27.0-31.0 [place] 778932-07-25 02:20:00 Test Item Value Reference Range Interpretation Comments MCHC (test code = MCHC) 32.4 32.0-36.0 [place] 778932-07-25 02:20:00 Test Item Value Reference Range Interpretation Comments RDW (test code = RDW) 21.1 11.5-14.5 [place] 778932-07-25 02:20:00 Test Item Value Reference Range Interpretation Comments Platelet (test code = Platelet) 297 133-450 [place] 778932-07-25 02:20:00 Test Item Value Reference Range Interpretation Comments MPV (test code = MPV) 7.5 7.4-10.4 [place] 778932-07-25 02:20:00 Test Item Value Reference Range Interpretation Comments Segs (test code = Segs) 85.8 45.0-75.0 [place] 778932-07-25 02:20:00 Test Item Value Reference Range Interpretation Comments Lymphocytes (test code = Lymphocytes) 8.5 20.0-40.0 [place] 778932-07-25 02:20:00 Test Item Value Reference Range Interpretation Comments Monocytes (test code = Monocytes) 5.0 2.0-12.0 [place] 778932-07-25 02:20:00 Test Item Value Reference Range Interpretation Comments Eosinophils (test code = 0.3 See_Comment [A utomated message] The Eosinophils) system which ge nerated this result tra nsmitted reference range : <=4.0. The reference r hugo was not used to int erpret this result as normal/abnormal . [place] 778932-07-25 02:20:00 Test Item Value Reference Range Interpretation Comments Basophils (test code = 0.4 See_Comment [Aut omated message] The Basophils) system which ge nerated this result tra nsmitted reference range : <=1.0. The reference r hugo was not used to int erpret this result as normal/abnormal . [facility] CenterKtanzecVPREEIPGEI3387-94-42 02:20:00 Test Item Value Reference Range Interpretation Comments Neutrophils # (test code = Neutrophils 7.4 1.5-8.1 #) [place] 778932-07-25 02:20:00 Test Item Value Reference Range Interpretation Comments Lymphocytes # (test code = Lymphocytes 0.7 1.0-5.5 #) [place] 778932-07-25 02:20:00 Test Item Value Reference Range Interpretation Comments Monocytes # (test code 0.4 See_Comment [Aut omated message] The = Monocytes #) system which generated this result tra nsmitted reference range : <=0.8. The reference r hugo was not used to int erpret this result as normal/abnormal . [facility]villeNhbejuoPDTASYBSKT0091-94-99 02:20:00 Test Item Value Reference Range Interpretation Comments Microcyte (test code = 1+ *ABN*(06/12/22 Microcyte) 9:20 PM) [facility] [id number] 02:20:00 Test Item Value Reference Range Interpretation Comments HS Troponin I (test code = HS Troponin 52 I) [facility] [id number] 02:20:00 Test Item Value Reference Range Interpretation Comments Glucose Lvl (test code = Glucose Lvl) 103 70-99 [facility]2022-07-25 02:20:00 Test Item Value Reference Range Interpretation Comments BUN (test code = BUN) 22 06-10 [facility]2022-07-25 02:20:00 Test Item Value Reference Range Interpretation Comments Creatinine Lvl (test code = Creatinine 0.90 0.50-1.40 Lvl) [facility]2022-07-25 02:20:00 Test Item Value Reference Range Interpretation Comments Sodium Lvl (test code = Sodium Lvl) 131 135-145 [facility]2022-07-25 02:20:00 Test Item Value Reference Range Interpretation Comments Potassium Lvl (test code = Potassium 4.2 3.5-5.1 Lvl) [facility]2022-07-25 02:20:00 Test Item Value Reference Range Interpretation Comments Chloride Lvl (test code = Chloride Lvl) 97 95-109 [facility]2022-07-25 02:20:00 Test Item Value Reference Range Interpretation Comments CO2 (test code = CO2) 26 24-32 [facility]2022-07-25 02:20:00 Test Item Value Reference Range Interpretation Comments Calcium Lvl (test code = Calcium Lvl) 8.7 8.5-10.5 [facility]2022-07-25 02:20:00 Test Item Value Reference Range Interpretation Comments Total Protein (test code = Total 7.0 6.4-8.4 Protein) [facility]2022-07-25 02:20:00 Test Item Value Reference Range Interpretation Comments Albumin Lvl (test code = Albumin Lvl) 3.4 3.5-5.0 [facility] [id number] 02:20:00 Test Item Value Reference Range Interpretation Comments ALT (test code = ALT) 18 See_Comment [Auto mated message] The system which ge nerated this result transmit lavon reference range : <=65. The reference range was not used to interpr et this result as dionne l/abnormal. [facility] [employer] [id number] 02:20:00 Test Item Value Reference Range Interpretation Comments AST (test code = AST) 27 See_Comment [Auto mated message] The system which ge nerated this result transmit lavon reference range : <=37. The reference range was not used to interpr et this result as dionne l/abnormal. [facility] [employer] [id number] 02:20:00 Test Item Value Reference Range Interpretation Comments Alk Phos (test code = Alk Phos) 57 39-136 [facility] [employer] [id number] 02:20:00 Test Item Value Reference Range Interpretation Comments Bili Total (test code = Bili Total) 1.0 0.2-1.3 [facility] [id number] 02:20:00 Test Item Value Reference Range Interpretation Comments AGAP (test code = AGAP) 12.2 10.0-20.0 [facility] [employer] [id number] 02:20:00 Test Item Value Reference Range Interpretation Comments B/C Ratio (test code = B/C Ratio) 24 1 6-25 [facility] [employer] [id number] 02:20:00 Test Item Value Reference Range Interpretation Comments Globulin (test code = Globulin) 3.6 2.7-4.2 [facility] [employer] [id number] 02:20:00 Test Item Value Reference Range Interpretation Comments A/G Ratio (test code = A/G Ratio) 0.9 1 0.7-1.6 [facility] [employer] [id number] 02:20:00 Test Item Value Reference Range Interpretation Comments eGFR (test code = eGFR) 62 [facility] TexasMmxuznnMLABWKTMWO3611-09-59 02:20:00 Test Item Value Reference Range Interpretation Comments WBC (test code = WBC) 8.6 3.7-10.4 [facility] TexasJnjiibzHXEJPQEPPM8576-98-51 02:20:00 Test Item Value Reference Range Interpretation Comments RBC (test code = RBC) 3.58 4.20-5.40 [place] 778932-07-25 02:20:00 Test Item Value Reference Range Interpretation Comments Hgb (test code = Hgb) 8.8 12.0-16.0 [facility]PoefmhbGTGDUISRSD4778-27-22 02:20:00 Test Item Value Reference Range Interpretation Comments Hct (test code = Hct) 27.1 36.0-48.0 [facility] CenterZdweemyDPPHISMAQN7606-85-73 02:20:00 Test Item Value Reference Range Interpretation Comments MCV (test code = MCV) 75.6 80.0-98.0 [facility] CenterIkqiohzUSVUCRPKOA1066-43-43 02:20:00 Test Item Value Reference Range Interpretation Comments MCH (test code = MCH) 24.5 pg 27.0-31.0 [facility] CenterHmvlzqyJQFHKPNKRW8113-41-63 02:20:00 Test Item Value Reference Range Interpretation Comments MCHC (test code = MCHC) 32.4 32.0-36.0 [facility] CenterFfzpgkvMYYLSONBOX1644-06-96 02:20:00 Test Item Value Reference Range Interpretation Comments RDW (test code = RDW) 21.1 11.5-14.5 [facility] CenterYblaylgUQUEICHAZY1698-71-91 02:20:00 Test Item Value Reference Range Interpretation Comments Platelet (test code = Platelet) 297 133-450 [facility] CenterSdykrpjSZQDXNLDJW5688-89-87 02:20:00 Test Item Value Reference Range Interpretation Comments MPV (test code = MPV) 7.5 7.4-10.4 [place] 778932-07-25 02:20:00 Test Item Value Reference Range Interpretation Comments Segs (test code = Segs) 85.8 45.0-75.0 [place] 778932-07-25 02:20:00 Test Item Value Reference Range Interpretation Comments Lymphocytes (test code = Lymphocytes) 8.5 20.0-40.0 [place] 778932-07-25 02:20:00 Test Item Value Reference Range Interpretation Comments Monocytes (test code = Monocytes) 5.0 2.0-12.0 [place] 778932-07-25 02:20:00 Test Item Value Reference Range Interpretation Comments Eosinophils (test code = 0.3 See_Comment [A utomated message] The Eosinophils) system which ge nerated this result tra nsmitted reference range : <=4.0. The reference r hugo was not used to int erpret this result as normal/abnormal . [facility] CenterQbikfueQBVGVZOCWH5091-28-06 02:20:00 Test Item Value Reference Range Interpretation Comments Basophils (test code = 0.4 See_Comment [Aut omated message] The Basophils) system which ge nerated this result tra nsmitted reference range : <=1.0. The reference r hugo was not used to int erpret this result as normal/abnormal . [facility] CenterWzokntgRQMQZZATYR1882-49-07 02:20:00 Test Item Value Reference Range Interpretation Comments Neutrophils # (test code = Neutrophils 7.4 1.5-8.1 #) [facility] CenterFagkqjfFEJFDAGDHX1343-47-90 02:20:00 Test Item Value Reference Range Interpretation Comments Lymphocytes # (test code = Lymphocytes 0.7 1.0-5.5 #) [facility] CenterGuwknmrVVXPNACKEV0745-14-72 02:20:00 Test Item Value Reference Range Interpretation Comments Monocytes # (test code 0.4 See_Comment [Aut omated message] The = Monocytes #) system which generated this result tra nsmitted reference range : <=0.8. The reference r hugo was not used to int erpret this result as normal/abnormal . [facility] CenterOgcbqtuIZEHPQDCTX9063-66-57 02:20:00 Test Item Value Reference Range Interpretation Comments Microcyte (test code = 1+ *ABN*(06/12/22 Microcyte) 9:20 PM) [facility] [id number] 02:20:00 Test Item Value Reference Range Interpretation Comments HS Troponin I (test code = HS Troponin 52 I) [facility] [id number] 02:20:00 Test Item Value Reference Range Interpretation Comments Glucose Lvl (test code = Glucose Lvl) 103 70-99 [facility] [id number] 02:20:00 Test Item Value Reference Range Interpretation Comments BUN (test code = BUN) 22 7- [facility]2022-07-25 02:20:00 Test Item Value Reference Range Interpretation Comments Creatinine Lvl (test code = Creatinine 0.90 0.50-1.40 Lvl) [place] 852652-07-25 02:20:00 Test Item Value Reference Range Interpretation Comments Sodium Lvl (test code = Sodium Lvl) 131 135-145 [place] 852652-07-25 02:20:00 Test Item Value Reference Range Interpretation Comments Potassium Lvl (test code = Potassium 4.2 3.5-5.1 Lvl) [place] 852652-07-25 02:20:00 Test Item Value Reference Range Interpretation Comments Chloride Lvl (test code = Chloride Lvl) 97 95-109 [place] 852652-07-25 02:20:00 Test Item Value Reference Range Interpretation Comments CO2 (test code = CO2) 26 24-32 [place] [address]-07-25 02:20:00 Test Item Value Reference Range Interpretation Comments Calcium Lvl (test code = Calcium Lvl) 8.7 8.5-10.5 [place] 852652-07-25 02:20:00 Test Item Value Reference Range Interpretation Comments Total Protein (test code = Total 7.0 6.4-8.4 Protein) [place] [address]-07-25 02:20:00 Test Item Value Reference Range Interpretation Comments Albumin Lvl (test code = Albumin Lvl) 3.4 3.5-5.0 [place] 852652-07-25 02:20:00 Test Item Value Reference Range Interpretation Comments ALT (test code = ALT) 18 See_Comment [Auto mated message] The system which ge nerated this result transmit lavon reference range : <=65. The reference range was not used to interpr et this result as dionne l/abnormal. [place] 852652-07-25 02:20:00 Test Item Value Reference Range Interpretation Comments AST (test code = AST) 27 See_Comment [Auto mated message] The system which ge nerated this result transmit lavon reference range : <=37. The reference range was not used to interpr et this result as dionne l/abnormal. [place] 56366-07-25 02:20:00 Test Item Value Reference Range Interpretation Comments Alk Phos (test code = Alk Phos) 57 39-136 [place] 852652-07-25 02:20:00 Test Item Value Reference Range Interpretation Comments Bili Total (test code = Bili Total) 1.0 0.2-1.3 [place] 852652-07-25 02:20:00 Test Item Value Reference Range Interpretation Comments AGAP (test code = AGAP) 12.2 10.0-20.0 [place] 852652-07-25 02:20:00 Test Item Value Reference Range Interpretation Comments B/C Ratio (test code = B/C Ratio) 24 1 6-25 [place] 852652-07-25 02:20:00 Test Item Value Reference Range Interpretation Comments Globulin (test code = Globulin) 3.6 2.7-4.2 [place] 852652-07-25 02:20:00 Test Item Value Reference Range Interpretation Comments A/G Ratio (test code = A/G Ratio) 0.9 1 0.7-1.6 [place] 852652-07-25 02:20:00 Test Item Value Reference Range Interpretation Comments eGFR (test code = eGFR) 62 [place] 778932-07-25 02:20:00 Test Item Value Reference Range Interpretation Comments WBC (test code = WBC) 8.6 3.7-10.4 [place] 778932-07-25 02:20:00 Test Item Value Reference Range Interpretation Comments RBC (test code = RBC) 3.58 4.20-5.40 [place] 778932-07-25 02:20:00 Test Item Value Reference Range Interpretation Comments Hgb (test code = Hgb) 8.8 12.0-16.0 [place] 778932-07-25 02:20:00 Test Item Value Reference Range Interpretation Comments Hct (test code = Hct) 27.1 36.0-48.0 [place] 778932-07-25 02:20:00 Test Item Value Reference Range Interpretation Comments MCV (test code = MCV) 75.6 80.0-98.0 [place] 778932-07-25 02:20:00 Test Item Value Reference Range Interpretation Comments MCH (test code = MCH) 24.5 pg 27.0-31.0 [place] 778932-07-25 02:20:00 Test Item Value Reference Range Interpretation Comments MCHC (test code = MCHC) 32.4 32.0-36.0 [facility]Xpx[facility]jfbFKHHMRZEJF0527-35-07 02:20:00 Test Item Value Reference Range Interpretation Comments RDW (test code = RDW) 21.1 11.5-14.5 [facility] CenterZtswsjxRSIDHMUZKS6166-03-76 02:20:00 Test Item Value Reference Range Interpretation Comments Platelet (test code = Platelet) 297 133-450 [facility] CenterIxhbwmjLXEKXKPRQO1518-17-92 02:20:00 Test Item Value Reference Range Interpretation Comments MPV (test code = MPV) 7.5 7.4-10.4 [place] 778932-07-25 02:20:00 Test Item Value Reference Range Interpretation Comments Segs (test code = Segs) 85.8 45.0-75.0 [place] 778932-07-25 02:20:00 Test Item Value Reference Range Interpretation Comments Lymphocytes (test code = Lymphocytes) 8.5 20.0-40.0 [place] 778932-07-25 02:20:00 Test Item Value Reference Range Interpretation Comments Monocytes (test code = Monocytes) 5.0 2.0-12.0 [facility] CenterHmvianxFAWRTDXHRG7464-33-12 02:20:00 Test Item Value Reference Range Interpretation Comments Eosinophils (test code = 0.3 See_Comment [A utomated message] The Eosinophils) system which ge nerated this result tra nsmitted reference range : <=4.0. The reference r hugo was not used to int erpret this result as normal/abnormal . [facility] CenterVftaimlXPBMEMZTJI7889-09-18 02:20:00 Test Item Value Reference Range Interpretation Comments Basophils (test code = 0.4 See_Comment [Aut omated message] The Basophils) system which ge nerated this result tra nsmitted reference range : <=1.0. The reference r hugo was not used to int erpret this result as normal/abnormal . [facility] CenterCwcrubwLPVGSLUNAP1063-07-54 02:20:00 Test Item Value Reference Range Interpretation Comments Neutrophils # (test code = Neutrophils 7.4 1.5-8.1 #) [facility] CenterGtefazpXRTLFLDIBD0460-58-15 02:20:00 Test Item Value Reference Range Interpretation Comments Lymphocytes # (test code = Lymphocytes 0.7 1.0-5.5 #) [place] 778932-07-25 02:20:00 Test Item Value Reference Range Interpretation Comments Monocytes # (test code 0.4 See_Comment [Aut omated message] The = Monocytes #) system which generated this result tra nsmitted reference range : <=0.8. The reference r hugo was not used to int erpret this result as normal/abnormal . [facility]jc[facility]DVGNPOHOOB9917-98-42 02:20:00 Test Item Value Reference Range Interpretation Comments Microcyte (test code = 1+ *ABN*(06/12/22 Microcyte) 9:20 PM) [facility] [id number] 02:20:00 Test Item Value Reference Range Interpretation Comments HS Troponin I (test code = HS Troponin 52 I) [facility] [id number] 02:20:00 Test Item Value Reference Range Interpretation Comments Glucose Lvl (test code = Glucose Lvl) 103 70-99 [facility]2022-07-25 02:20:00 Test Item Value Reference Range Interpretation Comments BUN (test code = BUN) 22 7-22 [facility] [id number] 02:20:00 Test Item Value Reference Range Interpretation Comments Creatinine Lvl (test code = Creatinine 0.90 0.50-1.40 Lvl) [facility] [id number] 02:20:00 Test Item Value Reference Range Interpretation Comments Sodium Lvl (test code = Sodium Lvl) 131 135-145 [facility] [id number] 02:20:00 Test Item Value Reference Range Interpretation Comments Potassium Lvl (test code = Potassium 4.2 3.5-5.1 Lvl) [facility] [id number] 02:20:00 Test Item Value Reference Range Interpretation Comments Chloride Lvl (test code = Chloride Lvl) 97 95-109 [facility] [id number] 02:20:00 Test Item Value Reference Range Interpretation Comments CO2 (test code = CO2) 24-32 [facility]2022-07-25 02:20:00 Test Item Value Reference Range Interpretation Comments Calcium Lvl (test code = Calcium Lvl) 8.7 8.5-10.5 [facility] [id number] 02:20:00 Test Item Value Reference Range Interpretation Comments Total Protein (test code = Total 7.0 6.4-8.4 Protein) [facility]2022-07-25 02:20:00 Test Item Value Reference Range Interpretation Comments Albumin Lvl (test code = Albumin Lvl) 3.4 3.5-5.0 [place] 852652-07-25 02:20:00 Test Item Value Reference Range Interpretation Comments ALT (test code = ALT) 18 See_Comment [Auto mated message] The system which ge nerated this result transmit lavon reference range : <=65. The reference range was not used to interpr et this result as dionne l/abnormal. [facility] [id number] 02:20:00 Test Item Value Reference Range Interpretation Comments AST (test code = AST) 27 See_Comment [Auto mated message] The system which ge nerated this result transmit lavon reference range : <=37. The reference range was not used to interpr et this result as dionne l/abnormal. [facility] [id number] 02:20:00 Test Item Value Reference Range Interpretation Comments Alk Phos (test code = Alk Phos) 57 39-136 [facility] [id number] 02:20:00 Test Item Value Reference Range Interpretation Comments Bili Total (test code = Bili Total) 1.0 0.2-1.3 [facility]2022-07-25 02:20:00 Test Item Value Reference Range Interpretation Comments AGAP (test code = AGAP) 12.2 10.0-20.0 [facility] [id number] 02:20:00 Test Item Value Reference Range Interpretation Comments B/C Ratio (test code = B/C Ratio) 24 1 6-25 [facility] [id number] 02:20:00 Test Item Value Reference Range Interpretation Comments Globulin (test code = Globulin) 3.6 2.7-4.2 [facility] [id number] 02:20:00 Test Item Value Reference Range Interpretation Comments A/G Ratio (test code = A/G Ratio) 0.9 1 0.7-1.6 [facility] TexasMelodigramNOV[facility] [id number] 02:20:00 Test Item Value Reference Range Interpretation Comments eGFR (test code = eGFR) 62 [facility] CenterUerualpZRSPKKSJVI5190-33-35 02:20:00 Test Item Value Reference Range Interpretation Comments WBC (test code = WBC) 8.6 3.7-10.4 [place] 778932-07-25 02:20:00 Test Item Value Reference Range Interpretation Comments RBC (test code = RBC) 3.58 4.20-5.40 [facility] CenterQvfpcllVXUADUNGRM4283-06-89 02:20:00 Test Item Value Reference Range Interpretation Comments Hgb (test code = Hgb) 8.8 12.0-16.0 [place] 778932-07-25 02:20:00 Test Item Value Reference Range Interpretation Comments Hct (test code = Hct) 27.1 36.0-48.0 [place] 778932-07-25 02:20:00 Test Item Value Reference Range Interpretation Comments MCV (test code = MCV) 75.6 80.0-98.0 [place] 778932-07-25 02:20:00 Test Item Value Reference Range Interpretation Comments MCH (test code = MCH) 24.5 pg 27.0-31.0 [facility] CenterAbddfhrAQCMSDHSZV4466-52-28 02:20:00 Test Item Value Reference Range Interpretation Comments MCHC (test code = MCHC) 32.4 32.0-36.0 [facility] CenterFwnmfbcXHBSXRZKPF0334-56-55 02:20:00 Test Item Value Reference Range Interpretation Comments RDW (test code = RDW) 21.1 11.5-14.5 [place] 778932-07-25 02:20:00 Test Item Value Reference Range Interpretation Comments Platelet (test code = Platelet) 297 133-450 [facility] CenterLdsloedIPEHSWOWDQ7016-49-85 02:20:00 Test Item Value Reference Range Interpretation Comments MPV (test code = MPV) 7.5 7.4-10.4 [place] 778932-07-25 02:20:00 Test Item Value Reference Range Interpretation Comments Segs (test code = Segs) 85.8 45.0-75.0 [place] 778932-07-25 02:20:00 Test Item Value Reference Range Interpretation Comments Lymphocytes (test code = Lymphocytes) 8.5 20.0-40.0 [place] 778932-07-25 02:20:00 Test Item Value Reference Range Interpretation Comments Monocytes (test code = Monocytes) 5.0 2.0-12.0 [facility] CenterFrgolrgMDNNQKDHQZ9111-26-74 02:20:00 Test Item Value Reference Range Interpretation Comments Eosinophils (test code = 0.3 See_Comment [A utomated message] The Eosinophils) system which ge nerated this result tra nsmitted reference range : <=4.0. The reference r hugo was not used to int erpret this result as normal/abnormal . [facility] CenterGokahkdQKAPGLHBEF9424-81-39 02:20:00 Test Item Value Reference Range Interpretation Comments Basophils (test code = 0.4 See_Comment [Aut omated message] The Basophils) system which ge nerated this result tra nsmitted reference range : <=1.0. The reference r hugo was not used to int erpret this result as normal/abnormal . [facility] CenterKtesfqoPNVZCEUOIS1673-26-32 02:20:00 Test Item Value Reference Range Interpretation Comments Neutrophils # (test code = Neutrophils 7.4 1.5-8.1 #) [facility] CenterOgcyxbeTYLPGEGXEH3157-28-98 02:20:00 Test Item Value Reference Range Interpretation Comments Lymphocytes # (test code = Lymphocytes 0.7 1.0-5.5 #) [facility] CenterYqevfllDWOXBSGGOT5388-59-23 02:20:00 Test Item Value Reference Range Interpretation Comments Monocytes # (test code 0.4 See_Comment [Aut omated message] The = Monocytes #) system which generated this result tra nsmitted reference range : <=0.8. The reference r hugo was not used to int erpret this result as normal/abnormal . [facility] CenterUiqxurvPRKRPQAPQJ9495-24-13 02:20:00 Test Item Value Reference Range Interpretation Comments Microcyte (test code = 1+ *ABN*(06/12/22 Microcyte) 9:20 PM) [facility] [id number] 02:20:00 Test Item Value Reference Range Interpretation Comments HS Troponin I (test code = HS Troponin 52 I) [facility]2022-07-25 02:20:00 Test Item Value Reference Range Interpretation Comments Glucose Lvl (test code = Glucose Lvl) 103 70-99 [facility]2022-07-25 02:20:00 Test Item Value Reference Range Interpretation Comments BUN (test code = BUN) 22 - [place] 852652-07-25 02:20:00 Test Item Value Reference Range Interpretation Comments Creatinine Lvl (test code = Creatinine 0.90 0.50-1.40 Lvl) [place] 852652-07-25 02:20:00 Test Item Value Reference Range Interpretation Comments Sodium Lvl (test code = Sodium Lvl) 131 135-145 [place] 852652-07-25 02:20:00 Test Item Value Reference Range Interpretation Comments Potassium Lvl (test code = Potassium 4.2 3.5-5.1 Lvl) [place] 852652-07-25 02:20:00 Test Item Value Reference Range Interpretation Comments Chloride Lvl (test code = Chloride Lvl) 97 95-109 [place] 852652-07-25 02:20:00 Test Item Value Reference Range Interpretation Comments CO2 (test code = CO2) 26 24-32 [place] 852652-07-25 02:20:00 Test Item Value Reference Range Interpretation Comments Calcium Lvl (test code = Calcium Lvl) 8.7 8.5-10.5 [place] 56366-07-25 02:20:00 Test Item Value Reference Range Interpretation Comments Total Protein (test code = Total 7.0 6.4-8.4 Protein) [place] 852652-07-25 02:20:00 Test Item Value Reference Range Interpretation Comments Albumin Lvl (test code = Albumin Lvl) 3.4 3.5-5.0 [place] 852652-07-25 02:20:00 Test Item Value Reference Range Interpretation Comments ALT (test code = ALT) 18 See_Comment [Auto mated message] The system which ge nerated this result transmit lavon reference range : <=65. The reference range was not used to interpr et this result as dionne l/abnormal. [place] 852652-07-25 02:20:00 Test Item Value Reference Range Interpretation Comments AST (test code = AST) 27 See_Comment [Auto mated message] The system which ge nerated this result transmit lavon reference range : <=37. The reference range was not used to interpr et this result as dionne l/abnormal. [place] 852652-07-25 02:20:00 Test Item Value Reference Range Interpretation Comments Alk Phos (test code = Alk Phos) 57 39-136 [facility]2022-07-25 02:20:00 Test Item Value Reference Range Interpretation Comments Bili Total (test code = Bili Total) 1.0 0.2-1.3 [place] 852652-07-25 02:20:00 Test Item Value Reference Range Interpretation Comments AGAP (test code = AGAP) 12.2 10.0-20.0 [place] 852652-07-25 02:20:00 Test Item Value Reference Range Interpretation Comments B/C Ratio (test code = B/C Ratio) 24 1 6-25 [place] 852652-07-25 02:20:00 Test Item Value Reference Range Interpretation Comments Globulin (test code = Globulin) 3.6 2.7-4.2 [place] 852652-07-25 02:20:00 Test Item Value Reference Range Interpretation Comments A/G Ratio (test code = A/G Ratio) 0.9 1 0.7-1.6 [place] 852652-07-25 02:20:00 Test Item Value Reference Range Interpretation Comments eGFR (test code = eGFR) 62 [place] 778932-07-25 02:20:00 Test Item Value Reference Range Interpretation Comments WBC (test code = WBC) 8.6 3.7-10.4 [place] 778932-07-25 02:20:00 Test Item Value Reference Range Interpretation Comments RBC (test code = RBC) 3.58 4.20-5.40 [place] 778932-07-25 02:20:00 Test Item Value Reference Range Interpretation Comments Hgb (test code = Hgb) 8.8 12.0-16.0 [place] 778932-07-25 02:20:00 Test Item Value Reference Range Interpretation Comments Hct (test code = Hct) 27.1 36.0-48.0 [place] 778932-07-25 02:20:00 Test Item Value Reference Range Interpretation Comments MCV (test code = MCV) 75.6 80.0-98.0 [place] 778932-07-25 02:20:00 Test Item Value Reference Range Interpretation Comments MCH (test code = MCH) 24.5 pg 27.0-31.0 [facility] CenterIjtsbztVHCBQFFIDY3552-03-60 02:20:00 Test Item Value Reference Range Interpretation Comments MCHC (test code = MCHC) 32.4 32.0-36.0 [facility] CenterYjfgbfqBBOLCSTCXY5761-22-95 02:20:00 Test Item Value Reference Range Interpretation Comments RDW (test code = RDW) 21.1 11.5-14.5 [facility] CenterWupukzfYJHKJKVOPM3016-17-34 02:20:00 Test Item Value Reference Range Interpretation Comments Platelet (test code = Platelet) 297 133-450 [facility] CenterTbifrdvMCIEUXRNQE1492-03-32 02:20:00 Test Item Value Reference Range Interpretation Comments MPV (test code = MPV) 7.5 7.4-10.4 [facility] CenterXllhnjuSORLYAQEML1219-73-12 02:20:00 Test Item Value Reference Range Interpretation Comments Segs (test code = Segs) 85.8 45.0-75.0 [facility] CenterMhnwrcdMWJWMTCQXH6360-30-53 02:20:00 Test Item Value Reference Range Interpretation Comments Lymphocytes (test code = Lymphocytes) 8.5 20.0-40.0 [facility] CenterJqgitjbKVKHLQECBV8458-03-97 02:20:00 Test Item Value Reference Range Interpretation Comments Monocytes (test code = Monocytes) 5.0 2.0-12.0 [facility] CenterBswuclhLBGGOGOSHB9565-72-75 02:20:00 Test Item Value Reference Range Interpretation Comments Eosinophils (test code = 0.3 See_Comment [A utomated message] The Eosinophils) system which ge nerated this result tra nsmitted reference range : <=4.0. The reference r hugo was not used to int erpret this result as normal/abnormal . [facility] CenterNlwjdcsWXLEKFGUMX3130-15-10 02:20:00 Test Item Value Reference Range Interpretation Comments Basophils (test code = 0.4 See_Comment [Aut omated message] The Basophils) system which ge nerated this result tra nsmitted reference range : <=1.0. The reference r hugo was not used to int erpret this result as normal/abnormal . [facility] CenterGvsfgeaLCJJPPUPKS4576-23-67 02:20:00 Test Item Value Reference Range Interpretation Comments Neutrophils # (test code = Neutrophils 7.4 1.5-8.1 #) [place] 778932-07-25 02:20:00 Test Item Value Reference Range Interpretation Comments Lymphocytes # (test code = Lymphocytes 0.7 1.0-5.5 #) [facility] CenterTnydeocMPZYWHGVFO4941-91-96 02:20:00 Test Item Value Reference Range Interpretation Comments Monocytes # (test code 0.4 See_Comment [Aut omated message] The = Monocytes #) system which generated this result tra nsmitted reference range : <=0.8. The reference r hugo was not used to int erpret this result as normal/abnormal . [facility] CenterLswuvnpYTYAKPPXAO4224-82-73 02:20:00 Test Item Value Reference Range Interpretation Comments Microcyte (test code = 1+ *ABN*(06/12/22 Microcyte) 9:20 PM) [facility]2022-07-25 02:20:00 Test Item Value Reference Range Interpretation Comments HS Troponin I (test code = HS Troponin 52 I) [facility]2022-07-25 02:20:00 Test Item Value Reference Range Interpretation Comments Glucose Lvl (test code = Glucose Lvl) 103 70-99 [facility]2022-07-25 02:20:00 Test Item Value Reference Range Interpretation Comments BUN (test code = BUN) 22 7-22 [facility]2022-07-25 02:20:00 Test Item Value Reference Range Interpretation Comments Creatinine Lvl (test code = Creatinine 0.90 0.50-1.40 Lvl) [facility]2022-07-25 02:20:00 Test Item Value Reference Range Interpretation Comments Sodium Lvl (test code = Sodium Lvl) 131 135-145 [facility]2022-07-25 02:20:00 Test Item Value Reference Range Interpretation Comments Potassium Lvl (test code = Potassium 4.2 3.5-5.1 Lvl) [facility]2022-07-25 02:20:00 Test Item Value Reference Range Interpretation Comments Chloride Lvl (test code = Chloride Lvl) 97 95-109 [facility]2022-07-25 02:20:00 Test Item Value Reference Range Interpretation Comments CO2 (test code = CO2) 26 24-32 [facility]2022-07-25 02:20:00 Test Item Value Reference Range Interpretation Comments Calcium Lvl (test code = Calcium Lvl) 8.7 8.5-10.5 [facility]ramEM[facility] [place] [id number] 02:20:00 Test Item Value Reference Range Interpretation Comments Total Protein (test code = Total 7.0 6.4-8.4 Protein) [place] 852652-07-25 02:20:00 Test Item Value Reference Range Interpretation Comments Albumin Lvl (test code = Albumin Lvl) 3.4 3.5-5.0 [place] 852652-07-25 02:20:00 Test Item Value Reference Range Interpretation Comments ALT (test code = ALT) 18 See_Comment [Auto mated message] The system which ge nerated this result transmit lavon reference range : <=65. The reference range was not used to interpr et this result as dionne l/abnormal. [place] 852652-07-25 02:20:00 Test Item Value Reference Range Interpretation Comments AST (test code = AST) 27 See_Comment [Auto mated message] The system which ge nerated this result transmit lavon reference range : <=37. The reference range was not used to interpr et this result as dionne l/abnormal. [facility] [id number] 02:20:00 Test Item Value Reference Range Interpretation Comments Alk Phos (test code = Alk Phos) 57 39-136 [facility] [id number] 02:20:00 Test Item Value Reference Range Interpretation Comments Bili Total (test code = Bili Total) 1.0 0.2-1.3 [facility] [id number] 02:20:00 Test Item Value Reference Range Interpretation Comments AGAP (test code = AGAP) 12.2 10.0-20.0 [facility] [id number] 02:20:00 Test Item Value Reference Range Interpretation Comments B/C Ratio (test code = B/C Ratio) 24 1 6-25 [facility] [id number] 02:20:00 Test Item Value Reference Range Interpretation Comments Globulin (test code = Globulin) 3.6 2.7-4.2 [facility] [id number] 02:20:00 Test Item Value Reference Range Interpretation Comments A/G Ratio (test code = A/G Ratio) 0.9 1 0.7-1.6 [facility]2022-07-25 02:20:00 Test Item Value Reference Range Interpretation Comments eGFR (test code = eGFR) 62 [place] 778932-07-25 02:20:00 Test Item Value Reference Range Interpretation Comments WBC (test code = WBC) 8.6 3.7-10.4 [place] 778932-07-25 02:20:00 Test Item Value Reference Range Interpretation Comments RBC (test code = RBC) 3.58 4.20-5.40 [place] 778932-07-25 02:20:00 Test Item Value Reference Range Interpretation Comments Hgb (test code = Hgb) 8.8 12.0-16.0 [place] 125[address]-07-25 02:20:00 Test Item Value Reference Range Interpretation Comments Hct (test code = Hct) 27.1 36.0-48.0 [place] 778932-07-25 02:20:00 Test Item Value Reference Range Interpretation Comments MCV (test code = MCV) 75.6 80.0-98.0 [place] 778932-07-25 02:20:00 Test Item Value Reference Range Interpretation Comments MCH (test code = MCH) 24.5 pg 27.0-31.0 [facility] CenterOrguwwfLDPPPSFNNY2096-52-09 02:20:00 Test Item Value Reference Range Interpretation Comments MCHC (test code = MCHC) 32.4 32.0-36.0 [facility] CenterFspqkyhAELWQGOAGR0130-09-29 02:20:00 Test Item Value Reference Range Interpretation Comments RDW (test code = RDW) 21.1 11.5-14.5 [place] 778932-07-25 02:20:00 Test Item Value Reference Range Interpretation Comments Platelet (test code = Platelet) 297 133-450 [facility] CenterPorsxkdXWMSNTSGFP2040-87-98 02:20:00 Test Item Value Reference Range Interpretation Comments MPV (test code = MPV) 7.5 7.4-10.4 [place] 778932-07-25 02:20:00 Test Item Value Reference Range Interpretation Comments Segs (test code = Segs) 85.8 45.0-75.0 [place] 778932-07-25 02:20:00 Test Item Value Reference Range Interpretation Comments Lymphocytes (test code = Lymphocytes) 8.5 20.0-40.0 [facility]KsujunrSPQQXZKKJE3581-36-56 02:20:00 Test Item Value Reference Range Interpretation Comments Monocytes (test code = Monocytes) 5.0 2.0-12.0 [facility]WczukjcWOPFMVTTXF7718-81-15 02:20:00 Test Item Value Reference Range Interpretation Comments Eosinophils (test code = 0.3 See_Comment [A utomated message] The Eosinophils) system which ge nerated this result tra nsmitted reference range : <=4.0. The reference r hugo was not used to int erpret this result as normal/abnormal . [facility] CenterCrnoxueJKNYWPKYMF7577-35-34 02:20:00 Test Item Value Reference Range Interpretation Comments Basophils (test code = 0.4 See_Comment [Aut omated message] The Basophils) system which ge nerated this result tra nsmitted reference range : <=1.0. The reference r hugo was not used to int erpret this result as normal/abnormal . [facility] CenterRwgybjvCKBSBBZRVP7408-90-03 02:20:00 Test Item Value Reference Range Interpretation Comments Neutrophils # (test code = Neutrophils 7.4 1.5-8.1 #) [facility] CenterNsidzjiCNIKLQDPNT1996-54-22 02:20:00 Test Item Value Reference Range Interpretation Comments Lymphocytes # (test code = Lymphocytes 0.7 1.0-5.5 #) [facility] CenterVyuugdpASRSFARXRW4440-04-36 02:20:00 Test Item Value Reference Range Interpretation Comments Monocytes # (test code 0.4 See_Comment [Aut omated message] The = Monocytes #) system which generated this result tra nsmitted reference range : <=0.8. The reference r hugo was not used to int erpret this result as normal/abnormal . [facility] CenterPhusupqXZAUANYBWS4972-66-79 02:20:00 Test Item Value Reference Range Interpretation Comments Microcyte (test code = 1+ *ABN*(06/12/22 Microcyte) 9:20 PM) [facility] [id number] 02:20:00 Test Item Value Reference Range Interpretation Comments HS Troponin I (test code = HS Troponin 52 I) [facility]villeCHE[facility] [id number] 02:20:00 Test Item Value Reference Range Interpretation Comments Glucose Lvl (test code = Glucose Lvl) 103 70-99 [place] 852652-07-25 02:20:00 Test Item Value Reference Range Interpretation Comments BUN (test code = BUN) 22 7-22 [place] 852652-07-25 02:20:00 Test Item Value Reference Range Interpretation Comments Creatinine Lvl (test code = Creatinine 0.90 0.50-1.40 Lvl) [place] 852652-07-25 02:20:00 Test Item Value Reference Range Interpretation Comments Sodium Lvl (test code = Sodium Lvl) 131 135-145 [place] 852652-07-25 02:20:00 Test Item Value Reference Range Interpretation Comments Potassium Lvl (test code = Potassium 4.2 3.5-5.1 Lvl) [place] 852652-07-25 02:20:00 Test Item Value Reference Range Interpretation Comments Chloride Lvl (test code = Chloride Lvl) 97 95-109 [place] 852652-07-25 02:20:00 Test Item Value Reference Range Interpretation Comments CO2 (test code = CO2) 26 24-32 [place] 852652-07-25 02:20:00 Test Item Value Reference Range Interpretation Comments Calcium Lvl (test code = Calcium Lvl) 8.7 8.5-10.5 [place] 852652-07-25 02:20:00 Test Item Value Reference Range Interpretation Comments Total Protein (test code = Total 7.0 6.4-8.4 Protein) [place] 852652-07-25 02:20:00 Test Item Value Reference Range Interpretation Comments Albumin Lvl (test code = Albumin Lvl) 3.4 3.5-5.0 [place] 852652-07-25 02:20:00 Test Item Value Reference Range Interpretation Comments ALT (test code = ALT) 18 See_Comment [Auto mated message] The system which ge nerated this result transmit lavon reference range : <=65. The reference range was not used to interpr et this result as dionne l/abnormal. [place] 852652-07-25 02:20:00 Test Item Value Reference Range Interpretation Comments AST (test code = AST) 27 See_Comment [Auto mated message] The system which ge nerated this result transmit lavon reference range : <=37. The reference range was not used to interpr et this result as dionne l/abnormal. [place] 852652-07-25 02:20:00 Test Item Value Reference Range Interpretation Comments Alk Phos (test code = Alk Phos) 57 39-136 [place] 852652-07-25 02:20:00 Test Item Value Reference Range Interpretation Comments Bili Total (test code = Bili Total) 1.0 0.2-1.3 [place] 852652-07-25 02:20:00 Test Item Value Reference Range Interpretation Comments AGAP (test code = AGAP) 12.2 10.0-20.0 [place] 852652-07-25 02:20:00 Test Item Value Reference Range Interpretation Comments B/C Ratio (test code = B/C Ratio) 24 1 6-25 [place] 852652-07-25 02:20:00 Test Item Value Reference Range Interpretation Comments Globulin (test code = Globulin) 3.6 2.7-4.2 [place] 852652-07-25 02:20:00 Test Item Value Reference Range Interpretation Comments A/G Ratio (test code = A/G Ratio) 0.9 1 0.7-1.6 [place] 852652-07-25 02:20:00 Test Item Value Reference Range Interpretation Comments eGFR (test code = eGFR) 62 [place] 778932-07-25 02:20:00 Test Item Value Reference Range Interpretation Comments WBC (test code = WBC) 8.6 3.7-10.4 [place] 778932-07-25 02:20:00 Test Item Value Reference Range Interpretation Comments RBC (test code = RBC) 3.58 4.20-5.40 [place] 778932-07-25 02:20:00 Test Item Value Reference Range Interpretation Comments Hgb (test code = Hgb) 8.8 12.0-16.0 [place] 778932-07-25 02:20:00 Test Item Value Reference Range Interpretation Comments Hct (test code = Hct) 27.1 36.0-48.0 [place] 778932-07-25 02:20:00 Test Item Value Reference Range Interpretation Comments MCV (test code = MCV) 75.6 80.0-98.0 [facility] CenterZvagsbwTABORSXHTG7287-68-21 02:20:00 Test Item Value Reference Range Interpretation Comments MCH (test code = MCH) 24.5 pg 27.0-31.0 [facility] CenterRtoapyiTNOYOGFZQU1335-93-33 02:20:00 Test Item Value Reference Range Interpretation Comments MCHC (test code = MCHC) 32.4 32.0-36.0 [facility] CenterUvgazijNYCAPNDTDV8338-18-83 02:20:00 Test Item Value Reference Range Interpretation Comments RDW (test code = RDW) 21.1 11.5-14.5 [facility] CenterRcvnedaLGDAPKJNML3309-34-59 02:20:00 Test Item Value Reference Range Interpretation Comments Platelet (test code = Platelet) 297 133-450 [facility] CenterNzdvgxjKXPZKHTLYP9986-69-72 02:20:00 Test Item Value Reference Range Interpretation Comments MPV (test code = MPV) 7.5 7.4-10.4 [facility] CenterWobdbozDYVREJDLOB0096-08-86 02:20:00 Test Item Value Reference Range Interpretation Comments Segs (test code = Segs) 85.8 45.0-75.0 [facility] CenterQmzylclDAPRPIVBGE3740-35-80 02:20:00 Test Item Value Reference Range Interpretation Comments Lymphocytes (test code = Lymphocytes) 8.5 20.0-40.0 [facility] CenterAfpxuwrSYHEBBNLBH0458-98-63 02:20:00 Test Item Value Reference Range Interpretation Comments Monocytes (test code = Monocytes) 5.0 2.0-12.0 [facility] CenterGwwfbxnEFDETSFPFQ1051-85-80 02:20:00 Test Item Value Reference Range Interpretation Comments Eosinophils (test code = 0.3 See_Comment [A utomated message] The Eosinophils) system which ge nerated this result tra nsmitted reference range : <=4.0. The reference r hugo was not used to int erpret this result as normal/abnormal . [facility] CenterWkgqgwbAGHPERDHZN7618-04-12 02:20:00 Test Item Value Reference Range Interpretation Comments Basophils (test code = 0.4 See_Comment [Aut omated message] The Basophils) system which ge nerated this result tra nsmitted reference range : <=1.0. The reference r hugo was not used to int erpret this result as normal/abnormal . [place] 778932-07-25 02:20:00 Test Item Value Reference Range Interpretation Comments Neutrophils # (test code = Neutrophils 7.4 1.5-8.1 #) [facility] CenterFsscshdRHSBZIWKQC7394-82-63 02:20:00 Test Item Value Reference Range Interpretation Comments Lymphocytes # (test code = Lymphocytes 0.7 1.0-5.5 #) [facility] CenterApyeyzvJKKGKUKPCD9217-82-03 02:20:00 Test Item Value Reference Range Interpretation Comments Monocytes # (test code 0.4 See_Comment [Aut omated message] The = Monocytes #) system which generated this result tra nsmitted reference range : <=0.8. The reference r hugo was not used to int erpret this result as normal/abnormal . [facility] CenterElvrpboOMAJEGHCUF9909-00-01 02:20:00 Test Item Value Reference Range Interpretation Comments Microcyte (test code = 1+ *ABN*(06/12/22 Microcyte) 9:20 PM) [facility]2022-07-25 02:20:00 Test Item Value Reference Range Interpretation Comments HS Troponin I (test code = HS Troponin 52 I) [facility]2022-07-25 02:20:00 Test Item Value Reference Range Interpretation Comments Glucose Lvl (test code = Glucose Lvl) 103 70-99 [facility]2022-07-25 02:20:00 Test Item Value Reference Range Interpretation Comments BUN (test code = BUN) 22 7-22 [facility]2022-07-25 02:20:00 Test Item Value Reference Range Interpretation Comments Creatinine Lvl (test code = Creatinine 0.90 0.50-1.40 Lvl) [facility]2022-07-25 02:20:00 Test Item Value Reference Range Interpretation Comments Sodium Lvl (test code = Sodium Lvl) 131 135-145 [facility]2022-07-25 02:20:00 Test Item Value Reference Range Interpretation Comments Potassium Lvl (test code = Potassium 4.2 3.5-5.1 Lvl) [facility]2022-07-25 02:20:00 Test Item Value Reference Range Interpretation Comments Chloride Lvl (test code = Chloride Lvl) 97 95-109 [facility]2022-07-25 02:20:00 Test Item Value Reference Range Interpretation Comments CO2 (test code = CO2) 26 24-32 [facility] [employer] [id number] 02:20:00 Test Item Value Reference Range Interpretation Comments Calcium Lvl (test code = Calcium Lvl) 8.7 8.5-10.5 [facility] [id number] 02:20:00 Test Item Value Reference Range Interpretation Comments Total Protein (test code = Total 7.0 6.4-8.4 Protein) [facility] [id number] 02:20:00 Test Item Value Reference Range Interpretation Comments Albumin Lvl (test code = Albumin Lvl) 3.4 3.5-5.0 [facility] [employer] [id number] 02:20:00 Test Item Value Reference Range Interpretation Comments ALT (test code = ALT) 18 See_Comment [Auto mated message] The system which ge nerated this result transmit lavon reference range : <=65. The reference range was not used to interpr et this result as dionne l/abnormal. [facility] [employer] [id number] 02:20:00 Test Item Value Reference Range Interpretation Comments AST (test code = AST) 27 See_Comment [Auto mated message] The system which ge nerated this result transmit lavon reference range : <=37. The reference range was not used to interpr et this result as dionne l/abnormal. [facility] [employer] [id number] 02:20:00 Test Item Value Reference Range Interpretation Comments Alk Phos (test code = Alk Phos) 57 39-136 [facility] [employer] [id number] 02:20:00 Test Item Value Reference Range Interpretation Comments Bili Total (test code = Bili Total) 1.0 0.2-1.3 [facility] [employer] [id number] 02:20:00 Test Item Value Reference Range Interpretation Comments AGAP (test code = AGAP) 12.2 10.0-20.0 [facility] [employer] [id number] 02:20:00 Test Item Value Reference Range Interpretation Comments B/C Ratio (test code = B/C Ratio) 24 1 6-25 [facility] [employer] [id number] 02:20:00 Test Item Value Reference Range Interpretation Comments Globulin (test code = Globulin) 3.6 2.7-4.2 [facility]2022-07-25 02:20:00 Test Item Value Reference Range Interpretation Comments A/G Ratio (test code = A/G Ratio) 0.9 1 0.7-1.6 [place] 852652-07-25 02:20:00 Test Item Value Reference Range Interpretation Comments eGFR (test code = eGFR) 62 [place] 778932-07-25 02:20:00 Test Item Value Reference Range Interpretation Comments WBC (test code = WBC) 8.6 3.7-10.4 [place] 778932-07-25 02:20:00 Test Item Value Reference Range Interpretation Comments RBC (test code = RBC) 3.58 4.20-5.40 [place] 778932-07-25 02:20:00 Test Item Value Reference Range Interpretation Comments Hgb (test code = Hgb) 8.8 12.0-16.0 [place] [address]-07-25 02:20:00 Test Item Value Reference Range Interpretation Comments Hct (test code = Hct) 27.1 36.0-48.0 [place] 778932-07-25 02:20:00 Test Item Value Reference Range Interpretation Comments MCV (test code = MCV) 75.6 80.0-98.0 [place] [address]-07-25 02:20:00 Test Item Value Reference Range Interpretation Comments MCH (test code = MCH) 24.5 pg 27.0-31.0 [place] 778932-07-25 02:20:00 Test Item Value Reference Range Interpretation Comments MCHC (test code = MCHC) 32.4 32.0-36.0 [place] 778932-07-25 02:20:00 Test Item Value Reference Range Interpretation Comments RDW (test code = RDW) 21.1 11.5-14.5 [place] 778932-07-25 02:20:00 Test Item Value Reference Range Interpretation Comments Platelet (test code = Platelet) 297 133-450 [place] 778932-07-25 02:20:00 Test Item Value Reference Range Interpretation Comments MPV (test code = MPV) 7.5 7.4-10.4 [place] 778932-07-25 02:20:00 Test Item Value Reference Range Interpretation Comments Segs (test code = Segs) 85.8 45.0-75.0 [facility] CenterNyltqmqOTKLTDGGPB7810-09-58 02:20:00 Test Item Value Reference Range Interpretation Comments Lymphocytes (test code = Lymphocytes) 8.5 20.0-40.0 [facility] CenterHlzzkusIJANRGILNN8853-60-33 02:20:00 Test Item Value Reference Range Interpretation Comments Monocytes (test code = Monocytes) 5.0 2.0-12.0 [facility] CenterUeyzmcnIXOGWGNEUM8489-59-37 02:20:00 Test Item Value Reference Range Interpretation Comments Eosinophils (test code = 0.3 See_Comment [A utomated message] The Eosinophils) system which ge nerated this result tra nsmitted reference range : <=4.0. The reference r hugo was not used to int erpret this result as normal/abnormal . [facility] CenterFixakvcYBCMKFNVAG4147-66-36 02:20:00 Test Item Value Reference Range Interpretation Comments Basophils (test code = 0.4 See_Comment [Aut omated message] The Basophils) system which ge nerated this result tra nsmitted reference range : <=1.0. The reference r hugo was not used to int erpret this result as normal/abnormal . [facility] CenterPocbjoaXYPFVMPLIE4948-80-23 02:20:00 Test Item Value Reference Range Interpretation Comments Neutrophils # (test code = Neutrophils 7.4 1.5-8.1 #) [facility] CenterPxymmqiNQWPKPIFKW4552-72-48 02:20:00 Test Item Value Reference Range Interpretation Comments Lymphocytes # (test code = Lymphocytes 0.7 1.0-5.5 #) [facility] CenterInhasreZUCBPMXWUO5599-08-75 02:20:00 Test Item Value Reference Range Interpretation Comments Monocytes # (test code 0.4 See_Comment [Aut omated message] The = Monocytes #) system which generated this result tra nsmitted reference range : <=0.8. The reference r hugo was not used to int erpret this result as normal/abnormal . [facility] CenterGybymdgTADQVGDGIS9351-31-23 02:20:00 Test Item Value Reference Range Interpretation Comments Microcyte (test code = 1+ *ABN*(06/12/22 Microcyte) 9:20 PM) [facility]2022-07-25 02:20:00 Test Item Value Reference Range Interpretation Comments HS Troponin I (test code = HS Troponin 52 I) [place] 852652-07-25 02:20:00 Test Item Value Reference Range Interpretation Comments Glucose Lvl (test code = Glucose Lvl) 103 70-99 [place] 852652-07-25 02:20:00 Test Item Value Reference Range Interpretation Comments BUN (test code = BUN) 22 7-22 [place] 852652-07-25 02:20:00 Test Item Value Reference Range Interpretation Comments Creatinine Lvl (test code = Creatinine 0.90 0.50-1.40 Lvl) [place] 852652-07-25 02:20:00 Test Item Value Reference Range Interpretation Comments Sodium Lvl (test code = Sodium Lvl) 131 135-145 [place] 852652-07-25 02:20:00 Test Item Value Reference Range Interpretation Comments Potassium Lvl (test code = Potassium 4.2 3.5-5.1 Lvl) [place] 852652-07-25 02:20:00 Test Item Value Reference Range Interpretation Comments Chloride Lvl (test code = Chloride Lvl) 97 95-109 [place] 852652-07-25 02:20:00 Test Item Value Reference Range Interpretation Comments CO2 (test code = CO2) 26 24-32 [place] 852652-07-25 02:20:00 Test Item Value Reference Range Interpretation Comments Calcium Lvl (test code = Calcium Lvl) 8.7 8.5-10.5 [place] 852652-07-25 02:20:00 Test Item Value Reference Range Interpretation Comments Total Protein (test code = Total 7.0 6.4-8.4 Protein) [place] 852652-07-25 02:20:00 Test Item Value Reference Range Interpretation Comments Albumin Lvl (test code = Albumin Lvl) 3.4 3.5-5.0 [place] 852652-07-25 02:20:00 Test Item Value Reference Range Interpretation Comments ALT (test code = ALT) 18 See_Comment [Auto mated message] The system which ge nerated this result transmit lavon reference range : <=65. The reference range was not used to interpr et this result as dionne l/abnormal. [place] 852652-07-25 02:20:00 Test Item Value Reference Range Interpretation Comments AST (test code = AST) 27 See_Comment [Auto mated message] The system which ge nerated this result transmit lavon reference range : <=37. The reference range was not used to interpr et this result as dionne l/abnormal. [facility] [employer] [id number] 02:20:00 Test Item Value Reference Range Interpretation Comments Alk Phos (test code = Alk Phos) 57 39-136 [facility] [employer] [id number] 02:20:00 Test Item Value Reference Range Interpretation Comments Bili Total (test code = Bili Total) 1.0 0.2-1.3 [facility] [employer] [id number] 02:20:00 Test Item Value Reference Range Interpretation Comments AGAP (test code = AGAP) 12.2 10.0-20.0 [facility] [employer] [id number] 02:20:00 Test Item Value Reference Range Interpretation Comments B/C Ratio (test code = B/C Ratio) 24 1 6-25 [facility] [id number] 02:20:00 Test Item Value Reference Range Interpretation Comments Globulin (test code = Globulin) 3.6 2.7-4.2 [facility] [employer] [id number] 02:20:00 Test Item Value Reference Range Interpretation Comments A/G Ratio (test code = A/G Ratio) 0.9 1 0.7-1.6 [facility] [id number] 02:20:00 Test Item Value Reference Range Interpretation Comments eGFR (test code = eGFR) 62 [facility]villeCifqvioZFUQDYHVHY9660-11-38 02:20:00 Test Item Value Reference Range Interpretation Comments WBC (test code = WBC) 8.6 3.7-10.4 [facility] TexasHjttvosEAULFUBRWU0426-56-84 02:20:00 Test Item Value Reference Range Interpretation Comments RBC (test code = RBC) 3.58 4.20-5.40 [facility] TexasGxedwpsZPUYXETSAW2006-35-29 02:20:00 Test Item Value Reference Range Interpretation Comments Hgb (test code = Hgb) 8.8 12.0-16.0 [facility] TexasXuygtrdIBJLWJEMHU2041-63-92 02:20:00 Test Item Value Reference Range Interpretation Comments Hct (test code = Hct) 27.1 36.0-48.0 [place] 778932-07-25 02:20:00 Test Item Value Reference Range Interpretation Comments MCV (test code = MCV) 75.6 80.0-98.0 [facility] CenterOlnvetsGJWUVAPUPR4263-37-01 02:20:00 Test Item Value Reference Range Interpretation Comments MCH (test code = MCH) 24.5 pg 27.0-31.0 [facility] CenterIagrkxwRIFXSZAOEP7654-52-89 02:20:00 Test Item Value Reference Range Interpretation Comments MCHC (test code = MCHC) 32.4 32.0-36.0 [facility] CenterOfzuxdqPOSDBVWANV5123-07-27 02:20:00 Test Item Value Reference Range Interpretation Comments RDW (test code = RDW) 21.1 11.5-14.5 [place] 778932-07-25 02:20:00 Test Item Value Reference Range Interpretation Comments Platelet (test code = Platelet) 297 133-450 [facility] CenterKnaedjkPCNFMFIVUK4905-67-85 02:20:00 Test Item Value Reference Range Interpretation Comments MPV (test code = MPV) 7.5 7.4-10.4 [place] 778932-07-25 02:20:00 Test Item Value Reference Range Interpretation Comments Segs (test code = Segs) 85.8 45.0-75.0 [facility] CenterKdiyfvxUFSRWHTXMH3652-39-84 02:20:00 Test Item Value Reference Range Interpretation Comments Lymphocytes (test code = Lymphocytes) 8.5 20.0-40.0 [place] 778932-07-25 02:20:00 Test Item Value Reference Range Interpretation Comments Monocytes (test code = Monocytes) 5.0 2.0-12.0 [place] [address]-07-25 02:20:00 Test Item Value Reference Range Interpretation Comments Eosinophils (test code = 0.3 See_Comment [A utomated message] The Eosinophils) system which ge nerated this result tra nsmitted reference range : <=4.0. The reference r hugo was not used to int erpret this result as normal/abnormal . [place] 778932-07-25 02:20:00 Test Item Value Reference Range Interpretation Comments Basophils (test code = 0.4 See_Comment [Aut omated message] The Basophils) system which ge nerated this result tra nsmitted reference range : <=1.0. The reference r hugo was not used to int erpret this result as normal/abnormal . [facility]UB[facility]GHK2267[facility]56 02:20:00 Test Item Value Reference Range Interpretation Comments Neutrophils # (test code = Neutrophils 7.4 1.5-8.1 #) [facility]CrpzumvXKWHZZXGON7648-94-26 02:20:00 Test Item Value Reference Range Interpretation Comments Lymphocytes # (test code = Lymphocytes 0.7 1.0-5.5 #) [facility] CenterDerolqwYIQPVMTPNX3703-04-41 02:20:00 Test Item Value Reference Range Interpretation Comments Monocytes # (test code 0.4 See_Comment [Aut omated message] The = Monocytes #) system which generated this result tra nsmitted reference range : <=0.8. The reference r hugo was not used to int erpret this result as normal/abnormal . [facility] CenterZlhlqzgLRDZPZXHIH6057-69-88 02:20:00 Test Item Value Reference Range Interpretation Comments Microcyte (test code = 1+ *ABN*(06/12/22 Microcyte) 9:20 PM) [facility] [id number] 02:20:00 Test Item Value Reference Range Interpretation Comments HS Troponin I (test code = HS Troponin 52 I) [facility] [id number] 02:20:00 Test Item Value Reference Range Interpretation Comments Glucose Lvl (test code = Glucose Lvl) 103 70-99 [facility] [id number] 02:20:00 Test Item Value Reference Range Interpretation Comments BUN (test code = BUN) 22 - [facility] [id number] 02:20:00 Test Item Value Reference Range Interpretation Comments Creatinine Lvl (test code = Creatinine 0.90 0.50-1.40 Lvl) [facility] [id number] 02:20:00 Test Item Value Reference Range Interpretation Comments Sodium Lvl (test code = Sodium Lvl) 131 135-145 [facility] [id number] 02:20:00 Test Item Value Reference Range Interpretation Comments Potassium Lvl (test code = Potassium 4.2 3.5-5.1 Lvl) [facility] [id number] 02:20:00 Test Item Value Reference Range Interpretation Comments Chloride Lvl (test code = Chloride Lvl) 97 95-109 [facility] [id number] 02:20:00 Test Item Value Reference Range Interpretation Comments CO2 (test code = CO2) 26 24-32 [facility] TexasMel[place]ramEM[place] [id number] 02:20:00 Test Item Value Reference Range Interpretation Comments Calcium Lvl (test code = Calcium Lvl) 8.7 8.5-10.5 [facility] [id number] 02:20:00 Test Item Value Reference Range Interpretation Comments Total Protein (test code = Total 7.0 6.4-8.4 Protein) [facility] [place] [id number] 02:20:00 Test Item Value Reference Range Interpretation Comments Albumin Lvl (test code = Albumin Lvl) 3.4 3.5-5.0 [facility] [id number] 02:20:00 Test Item Value Reference Range Interpretation Comments ALT (test code = ALT) 18 See_Comment [Auto mated message] The system which ge nerated this result transmit lavon reference range : <=65. The reference range was not used to interpr et this result as dionne l/abnormal. [facility] [id number] 02:20:00 Test Item Value Reference Range Interpretation Comments AST (test code = AST) 27 See_Comment [Auto mated message] The system which ge nerated this result transmit lavon reference range : <=37. The reference range was not used to interpr et this result as dionne l/abnormal. [facility] [employer] [id number] 02:20:00 Test Item Value Reference Range Interpretation Comments Alk Phos (test code = Alk Phos) 57 39-136 [facility] [id number] 02:20:00 Test Item Value Reference Range Interpretation Comments Bili Total (test code = Bili Total) 1.0 0.2-1.3 [facility] [id number] 02:20:00 Test Item Value Reference Range Interpretation Comments AGAP (test code = AGAP) 12.2 10.0-20.0 [facility] [id number] 02:20:00 Test Item Value Reference Range Interpretation Comments B/C Ratio (test code = B/C Ratio) 24 1 6-25 [facility]2022-07-25 02:20:00 Test Item Value Reference Range Interpretation Comments Globulin (test code = Globulin) 3.6 2.7-4.2 [facility]2022-07-25 02:20:00 Test Item Value Reference Range Interpretation Comments A/G Ratio (test code = A/G Ratio) 0.9 1 0.7-1.6 [place] 852652-07-25 02:20:00 Test Item Value Reference Range Interpretation Comments eGFR (test code = eGFR) 62 [facility]JhkrekzKONHHQJUSF5895-69-25 02:20:00 Test Item Value Reference Range Interpretation Comments WBC (test code = WBC) 8.6 3.7-10.4 [place] 778932-07-25 02:20:00 Test Item Value Reference Range Interpretation Comments RBC (test code = RBC) 3.58 4.20-5.40 [place] 778932-07-25 02:20:00 Test Item Value Reference Range Interpretation Comments Hgb (test code = Hgb) 8.8 12.0-16.0 [place] 778932-07-25 02:20:00 Test Item Value Reference Range Interpretation Comments Hct (test code = Hct) 27.1 36.0-48.0 [place] 778932-07-25 02:20:00 Test Item Value Reference Range Interpretation Comments MCV (test code = MCV) 75.6 80.0-98.0 [place] 778932-07-25 02:20:00 Test Item Value Reference Range Interpretation Comments MCH (test code = MCH) 24.5 pg 27.0-31.0 [place] 778932-07-25 02:20:00 Test Item Value Reference Range Interpretation Comments MCHC (test code = MCHC) 32.4 32.0-36.0 [place] 778932-07-25 02:20:00 Test Item Value Reference Range Interpretation Comments RDW (test code = RDW) 21.1 11.5-14.5 [place] 778932-07-25 02:20:00 Test Item Value Reference Range Interpretation Comments Platelet (test code = Platelet) 297 133-450 [facility] CenterTiiznfhFUKZYZVHRM0891-54-00 02:20:00 Test Item Value Reference Range Interpretation Comments MPV (test code = MPV) 7.5 7.4-10.4 [place] 778932-07-25 02:20:00 Test Item Value Reference Range Interpretation Comments Segs (test code = Segs) 85.8 45.0-75.0 [place] 778932-07-25 02:20:00 Test Item Value Reference Range Interpretation Comments Lymphocytes (test code = Lymphocytes) 8.5 20.0-40.0 [place] 778932-07-25 02:20:00 Test Item Value Reference Range Interpretation Comments Monocytes (test code = Monocytes) 5.0 2.0-12.0 [place] 778932-07-25 02:20:00 Test Item Value Reference Range Interpretation Comments Eosinophils (test code = 0.3 See_Comment [A utomated message] The Eosinophils) system which ge nerated this result tra nsmitted reference range : <=4.0. The reference r hugo was not used to int erpret this result as normal/abnormal . [place] 778932-07-25 02:20:00 Test Item Value Reference Range Interpretation Comments Basophils (test code = 0.4 See_Comment [Aut omated message] The Basophils) system which ge nerated this result tra nsmitted reference range : <=1.0. The reference r hugo was not used to int erpret this result as normal/abnormal . [place] 778932-07-25 02:20:00 Test Item Value Reference Range Interpretation Comments Neutrophils # (test code = Neutrophils 7.4 1.5-8.1 #) [facility] [id number] 02:20:00 Test Item Value Reference Range Interpretation Comments Lymphocytes # (test code = Lymphocytes 0.7 1.0-5.5 #) [place] [address]-07-25 02:20:00 Test Item Value Reference Range Interpretation Comments Monocytes # (test code 0.4 See_Comment [Aut omated message] The = Monocytes #) system which generated this result tra nsmitted reference range : <=0.8. The reference r hugo was not used to int erpret this result as normal/abnormal . [place] 778932-07-25 02:20:00 Test Item Value Reference Range Interpretation Comments Microcyte (test code = 1+ *ABN*(06/12/22 Microcyte) 9:20 PM) [facility] [id number] 02:20:00 Test Item Value Reference Range Interpretation Comments HS Troponin I (test code = HS Troponin 52 I) [facility] [id number] 02:20:00 Test Item Value Reference Range Interpretation Comments Glucose Lvl (test code = Glucose Lvl) 103 70-99 [facility]2022-07-25 02:20:00 Test Item Value Reference Range Interpretation Comments BUN (test code = BUN) 22 - [facility]2022-07-25 02:20:00 Test Item Value Reference Range Interpretation Comments Creatinine Lvl (test code = Creatinine 0.90 0.50-1.40 Lvl) [facility]2022-07-25 02:20:00 Test Item Value Reference Range Interpretation Comments Sodium Lvl (test code = Sodium Lvl) 131 135-145 [facility]2022-07-25 02:20:00 Test Item Value Reference Range Interpretation Comments Potassium Lvl (test code = Potassium 4.2 3.5-5.1 Lvl) [facility]2022-07-25 02:20:00 Test Item Value Reference Range Interpretation Comments Chloride Lvl (test code = Chloride Lvl) 97 95-109 [facility]2022-07-25 02:20:00 Test Item Value Reference Range Interpretation Comments CO2 (test code = CO2) 26 24-32 [facility]2022-07-25 02:20:00 Test Item Value Reference Range Interpretation Comments Calcium Lvl (test code = Calcium Lvl) 8.7 8.5-10.5 [facility]2022-07-25 02:20:00 Test Item Value Reference Range Interpretation Comments Total Protein (test code = Total 7.0 6.4-8.4 Protein) [facility]2022-07-25 02:20:00 Test Item Value Reference Range Interpretation Comments Albumin Lvl (test code = Albumin Lvl) 3.4 3.5-5.0 [facility]2022-07-25 02:20:00 Test Item Value Reference Range Interpretation Comments ALT (test code = ALT) 18 See_Comment [Auto mated message] The system which ge nerated this result transmit lavon reference range : <=65. The reference range was not used to interpr et this result as dionne l/abnormal. [facility] [employer] [id number] 02:20:00 Test Item Value Reference Range Interpretation Comments AST (test code = AST) 27 See_Comment [Auto mated message] The system which ge nerated this result transmit lavon reference range : <=37. The reference range was not used to interpr et this result as dionne l/abnormal. [facility] [id number] 02:20:00 Test Item Value Reference Range Interpretation Comments Alk Phos (test code = Alk Phos) 57 39-136 [facility] [id number] 02:20:00 Test Item Value Reference Range Interpretation Comments Bili Total (test code = Bili Total) 1.0 0.2-1.3 [facility] [id number] 02:20:00 Test Item Value Reference Range Interpretation Comments AGAP (test code = AGAP) 12.2 10.0-20.0 [facility] [id number] 02:20:00 Test Item Value Reference Range Interpretation Comments B/C Ratio (test code = B/C Ratio) 24 1 6-25 [facility] [id number] 02:20:00 Test Item Value Reference Range Interpretation Comments Globulin (test code = Globulin) 3.6 2.7-4.2 [facility] [id number] 02:20:00 Test Item Value Reference Range Interpretation Comments A/G Ratio (test code = A/G Ratio) 0.9 1 0.7-1.6 [facility] [id number] 02:20:00 Test Item Value Reference Range Interpretation Comments eGFR (test code = eGFR) 62 [facility] GreenvilleVfwzxjwJFMBCNGDNW6091-21-08 02:20:00 Test Item Value Reference Range Interpretation Comments WBC (test code = WBC) 8.6 3.7-10.4 [place] 778932-07-25 02:20:00 Test Item Value Reference Range Interpretation Comments RBC (test code = RBC) 3.58 4.20-5.40 [place] 778932-07-25 02:20:00 Test Item Value Reference Range Interpretation Comments Hgb (test code = Hgb) 8.8 12.0-16.0 [facility] CenterHbxhamcPGMBWBKCDA2329-74-48 02:20:00 Test Item Value Reference Range Interpretation Comments Hct (test code = Hct) 27.1 36.0-48.0 [facility] CenterBorvasaGAPDTVGEQQ4803-24-02 02:20:00 Test Item Value Reference Range Interpretation Comments MCV (test code = MCV) 75.6 80.0-98.0 [facility] CenterGjtmarpVLAYWXHDMO4900-77-64 02:20:00 Test Item Value Reference Range Interpretation Comments MCH (test code = MCH) 24.5 pg 27.0-31.0 [facility] CenterLvjjqhiIMQUXKBRNR6020-29-26 02:20:00 Test Item Value Reference Range Interpretation Comments MCHC (test code = MCHC) 32.4 32.0-36.0 [facility] CenterKzxgvygZUGPJBUYDV2869-03-08 02:20:00 Test Item Value Reference Range Interpretation Comments RDW (test code = RDW) 21.1 11.5-14.5 [facility] CenterGohqwwgSYUADBVPZG6054-04-54 02:20:00 Test Item Value Reference Range Interpretation Comments Platelet (test code = Platelet) 297 133-450 [facility] CenterEdvcakrNBHDWEOPER4132-23-05 02:20:00 Test Item Value Reference Range Interpretation Comments MPV (test code = MPV) 7.5 7.4-10.4 [facility] CenterGzppcdmYNWWJJSZUP0210-96-20 02:20:00 Test Item Value Reference Range Interpretation Comments Segs (test code = Segs) 85.8 45.0-75.0 [facility] CenterQghazacMCTIMFWCLP2666-34-13 02:20:00 Test Item Value Reference Range Interpretation Comments Lymphocytes (test code = Lymphocytes) 8.5 20.0-40.0 [place] 778932-07-25 02:20:00 Test Item Value Reference Range Interpretation Comments Monocytes (test code = Monocytes) 5.0 2.0-12.0 [place] 778932-07-25 02:20:00 Test Item Value Reference Range Interpretation Comments Eosinophils (test code = 0.3 See_Comment [A utomated message] The Eosinophils) system which ge nerated this result tra nsmitted reference range : <=4.0. The reference r hugo was not used to int erpret this result as normal/abnormal . [place] [address]-07-25 02:20:00 Test Item Value Reference Range Interpretation Comments Basophils (test code = 0.4 See_Comment [Aut omated message] The Basophils) system which ge nerated this result tra nsmitted reference range : <=1.0. The reference r hugo was not used to int erpret this result as normal/abnormal . [facility] CenterTqezmfkFWZBIRKCPY5278-76-23 02:20:00 Test Item Value Reference Range Interpretation Comments Neutrophils # (test code = Neutrophils 7.4 1.5-8.1 #) [facility]2422[facility]36-99 02:20:00 Test Item Value Reference Range Interpretation Comments Lymphocytes # (test code = Lymphocytes 0.7 1.0-5.5 #) [facility] CenterWlhzxqkLLCQDMZYXQ9973-97-37 02:20:00 Test Item Value Reference Range Interpretation Comments Monocytes # (test code 0.4 See_Comment [Aut omated message] The = Monocytes #) system which generated this result tra nsmitted reference range : <=0.8. The reference r hugo was not used to int erpret this result as normal/abnormal . [facility] CenterMmjsnzrBLWHBUPASO0767-33-94 02:20:00 Test Item Value Reference Range Interpretation Comments Microcyte (test code = 1+ *ABN*(06/12/22 Microcyte) 9:20 PM) [facility]ville[facility] [id number] 02:20:00 Test Item Value Reference Range Interpretation Comments HS Troponin I (test code = HS Troponin 52 I) [facility] [id number] 02:20:00 Test Item Value Reference Range Interpretation Comments Glucose Lvl (test code = Glucose Lvl) 103 70-99 [facility] [id number] 02:20:00 Test Item Value Reference Range Interpretation Comments BUN (test code = BUN) 22 7- [facility] [id number] 02:20:00 Test Item Value Reference Range Interpretation Comments Creatinine Lvl (test code = Creatinine 0.90 0.50-1.40 Lvl) [facility] [id number] 02:20:00 Test Item Value Reference Range Interpretation Comments Sodium Lvl (test code = Sodium Lvl) 131 135-145 [facility] [id number] 02:20:00 Test Item Value Reference Range Interpretation Comments Potassium Lvl (test code = Potassium 4.2 3.5-5.1 Lvl) [facility]Mel[place] [id number] 02:20:00 Test Item Value Reference Range Interpretation Comments Chloride Lvl (test code = Chloride Lvl) 97 95-109 [place] 852652-07-25 02:20:00 Test Item Value Reference Range Interpretation Comments CO2 (test code = CO2) 26 24-32 [place] 852652-07-25 02:20:00 Test Item Value Reference Range Interpretation Comments Calcium Lvl (test code = Calcium Lvl) 8.7 8.5-10.5 [facility]Mel[place] [id number] 02:20:00 Test Item Value Reference Range Interpretation Comments Total Protein (test code = Total 7.0 6.4-8.4 Protein) [place] 852652-07-25 02:20:00 Test Item Value Reference Range Interpretation Comments Albumin Lvl (test code = Albumin Lvl) 3.4 3.5-5.0 [facility] [id number] 02:20:00 Test Item Value Reference Range Interpretation Comments ALT (test code = ALT) 18 See_Comment [Auto mated message] The system which ge nerated this result transmit lavon reference range : <=65. The reference range was not used to interpr et this result as dionne l/abnormal. [facility] [id number] 02:20:00 Test Item Value Reference Range Interpretation Comments AST (test code = AST) 27 See_Comment [Auto mated message] The system which ge nerated this result transmit lavon reference range : <=37. The reference range was not used to interpr et this result as dionne l/abnormal. [facility] [id number] 02:20:00 Test Item Value Reference Range Interpretation Comments Alk Phos (test code = Alk Phos) 57 39-136 [facility] [id number] 02:20:00 Test Item Value Reference Range Interpretation Comments Bili Total (test code = Bili Total) 1.0 0.2-1.3 [facility] [id number] 02:20:00 Test Item Value Reference Range Interpretation Comments AGAP (test code = AGAP) 12.2 10.0-20.0 [facility]2022-07-25 02:20:00 Test Item Value Reference Range Interpretation Comments B/C Ratio (test code = B/C Ratio) 24 1 6-25 [place] 852652-07-25 02:20:00 Test Item Value Reference Range Interpretation Comments Globulin (test code = Globulin) 3.6 2.7-4.2 [place] 852652-07-25 02:20:00 Test Item Value Reference Range Interpretation Comments A/G Ratio (test code = A/G Ratio) 0.9 1 0.7-1.6 [facility]2022-07-25 02:20:00 Test Item Value Reference Range Interpretation Comments eGFR (test code = eGFR) 62 [facility] CenterNyrubyzZESKZQKRXQ5979-14-92 02:20:00 Test Item Value Reference Range Interpretation Comments WBC (test code = WBC) 8.6 3.7-10.4 [place] 778932-07-25 02:20:00 Test Item Value Reference Range Interpretation Comments RBC (test code = RBC) 3.58 4.20-5.40 [place] 778932-07-25 02:20:00 Test Item Value Reference Range Interpretation Comments Hgb (test code = Hgb) 8.8 12.0-16.0 [place] 778932-07-25 02:20:00 Test Item Value Reference Range Interpretation Comments Hct (test code = Hct) 27.1 36.0-48.0 [place] 778932-07-25 02:20:00 Test Item Value Reference Range Interpretation Comments MCV (test code = MCV) 75.6 80.0-98.0 [place] 778932-07-25 02:20:00 Test Item Value Reference Range Interpretation Comments MCH (test code = MCH) 24.5 pg 27.0-31.0 [place] 778932-07-25 02:20:00 Test Item Value Reference Range Interpretation Comments MCHC (test code = MCHC) 32.4 32.0-36.0 [place] 778932-07-25 02:20:00 Test Item Value Reference Range Interpretation Comments RDW (test code = RDW) 21.1 11.5-14.5 [place] 778932-07-25 02:20:00 Test Item Value Reference Range Interpretation Comments Platelet (test code = Platelet) 297 133-450 [facility] CenterNlpgotwQRMXTSHYNF2463-84-82 02:20:00 Test Item Value Reference Range Interpretation Comments MPV (test code = MPV) 7.5 7.4-10.4 [place] 778932-07-25 02:20:00 Test Item Value Reference Range Interpretation Comments Segs (test code = Segs) 85.8 45.0-75.0 [place] 778932-07-25 02:20:00 Test Item Value Reference Range Interpretation Comments Lymphocytes (test code = Lymphocytes) 8.5 20.0-40.0 [place] 778932-07-25 02:20:00 Test Item Value Reference Range Interpretation Comments Monocytes (test code = Monocytes) 5.0 2.0-12.0 [place] 778932-07-25 02:20:00 Test Item Value Reference Range Interpretation Comments Eosinophils (test code = 0.3 See_Comment [A utomated message] The Eosinophils) system which ge nerated this result tra nsmitted reference range : <=4.0. The reference r hugo was not used to int erpret this result as normal/abnormal . [facility] CenterUhsoxplJTYLAVQJTY7441-83-49 02:20:00 Test Item Value Reference Range Interpretation Comments Basophils (test code = 0.4 See_Comment [Aut omated message] The Basophils) system which ge nerated this result tra nsmitted reference range : <=1.0. The reference r hugo was not used to int erpret this result as normal/abnormal . [facility] CenterDqirvicNDMQOKWBSV6717-54-09 02:20:00 Test Item Value Reference Range Interpretation Comments Neutrophils # (test code = Neutrophils 7.4 1.5-8.1 #) [place] 778932-07-25 02:20:00 Test Item Value Reference Range Interpretation Comments Lymphocytes # (test code = Lymphocytes 0.7 1.0-5.5 #) [place] 778932-07-25 02:20:00 Test Item Value Reference Range Interpretation Comments Monocytes # (test code 0.4 See_Comment [Aut omated message] The = Monocytes #) system which generated this result tra nsmitted reference range : <=0.8. The reference r hugo was not used to int erpret this result as normal/abnormal . [facility] GreenvilleJoiqtrmDBBVAQLPQO9211-56-14 02:20:00 Test Item Value Reference Range Interpretation Comments Microcyte (test code = 1+ *ABN*(06/12/22 Microcyte) 9:20 PM) [facility]villeC[facility] [id number] 02:20:00 Test Item Value Reference Range Interpretation Comments HS Troponin I (test code = HS Troponin 52 I) [facility] [id number] 02:20:00 Test Item Value Reference Range Interpretation Comments Glucose Lvl (test code = Glucose Lvl) 103 70-99 [facility] [id number] 02:20:00 Test Item Value Reference Range Interpretation Comments BUN (test code = BUN) 22 06-10 [facility]2022-07-25 02:20:00 Test Item Value Reference Range Interpretation Comments Creatinine Lvl (test code = Creatinine 0.90 0.50-1.40 Lvl) [facility] [id number] 02:20:00 Test Item Value Reference Range Interpretation Comments Sodium Lvl (test code = Sodium Lvl) 131 135-145 [facility]2022-07-25 02:20:00 Test Item Value Reference Range Interpretation Comments Potassium Lvl (test code = Potassium 4.2 3.5-5.1 Lvl) [facility]2022-07-25 02:20:00 Test Item Value Reference Range Interpretation Comments Chloride Lvl (test code = Chloride Lvl) 97 95-109 [facility] [id number] 02:20:00 Test Item Value Reference Range Interpretation Comments CO2 (test code = CO2) 24-32 [facility]2022-07-25 02:20:00 Test Item Value Reference Range Interpretation Comments Calcium Lvl (test code = Calcium Lvl) 8.7 8.5-10.5 [facility]2022-07-25 02:20:00 Test Item Value Reference Range Interpretation Comments Total Protein (test code = Total 7.0 6.4-8.4 Protein) [facility]2022-07-25 02:20:00 Test Item Value Reference Range Interpretation Comments Albumin Lvl (test code = Albumin Lvl) 3.4 3.5-5.0 [facility] [id number] 02:20:00 Test Item Value Reference Range Interpretation Comments ALT (test code = ALT) 18 See_Comment [Auto mated message] The system which ge nerated this result transmit lavon reference range : <=65. The reference range was not used to interpr et this result as dionne l/abnormal. [facility] [employer] [id number] 02:20:00 Test Item Value Reference Range Interpretation Comments AST (test code = AST) 27 See_Comment [Auto mated message] The system which ge nerated this result transmit lavon reference range : <=37. The reference range was not used to interpr et this result as dionne l/abnormal. [facility] [employer] [id number] 02:20:00 Test Item Value Reference Range Interpretation Comments Alk Phos (test code = Alk Phos) 57 39-136 [facility] [employer] [id number] 02:20:00 Test Item Value Reference Range Interpretation Comments Bili Total (test code = Bili Total) 1.0 0.2-1.3 [facility] [id number] 02:20:00 Test Item Value Reference Range Interpretation Comments AGAP (test code = AGAP) 12.2 10.0-20.0 [facility] [employer] [id number] 02:20:00 Test Item Value Reference Range Interpretation Comments B/C Ratio (test code = B/C Ratio) 24 1 6-25 [facility] [id number] 02:20:00 Test Item Value Reference Range Interpretation Comments Globulin (test code = Globulin) 3.6 2.7-4.2 [facility] [employer] [id number] 02:20:00 Test Item Value Reference Range Interpretation Comments A/G Ratio (test code = A/G Ratio) 0.9 1 0.7-1.6 [facility] [employer] [id number] 02:20:00 Test Item Value Reference Range Interpretation Comments eGFR (test code = eGFR) 62 [facility] TexasWoocrozIBQBIZSACK4321-79-20 02:20:00 Test Item Value Reference Range Interpretation Comments WBC (test code = WBC) 8.6 3.7-10.4 [facility] TexasDzghlkyUJRYVZBVDE7778-02-29 02:20:00 Test Item Value Reference Range Interpretation Comments RBC (test code = RBC) 3.58 4.20-5.40 [facility] CenterRtwvidxYKAUNHBYSF0987-21-76 02:20:00 Test Item Value Reference Range Interpretation Comments Hgb (test code = Hgb) 8.8 12.0-16.0 [place] 778932-07-25 02:20:00 Test Item Value Reference Range Interpretation Comments Hct (test code = Hct) 27.1 36.0-48.0 [facility] [id number] 02:20:00 Test Item Value Reference Range Interpretation Comments MCV (test code = MCV) 75.6 80.0-98.0 [facility]UvrbxobLPRSOAFHXK7004-56-14 02:20:00 Test Item Value Reference Range Interpretation Comments MCH (test code = MCH) 24.5 pg 27.0-31.0 [facility] CenterKonisgrKIWIVAXWKL8741-52-06 02:20:00 Test Item Value Reference Range Interpretation Comments MCHC (test code = MCHC) 32.4 32.0-36.0 [facility] CenterUogobhfOTBJYCPSBK1676-25-65 02:20:00 Test Item Value Reference Range Interpretation Comments RDW (test code = RDW) 21.1 11.5-14.5 [facility] CenterFlbptbkPTHCGOAHRM9510-40-03 02:20:00 Test Item Value Reference Range Interpretation Comments Platelet (test code = Platelet) 297 133-450 [facility] CenterMivoumsCGHGBITAVV5136-64-37 02:20:00 Test Item Value Reference Range Interpretation Comments MPV (test code = MPV) 7.5 7.4-10.4 [place] 778932-07-25 02:20:00 Test Item Value Reference Range Interpretation Comments Segs (test code = Segs) 85.8 45.0-75.0 [place] 778932-07-25 02:20:00 Test Item Value Reference Range Interpretation Comments Lymphocytes (test code = Lymphocytes) 8.5 20.0-40.0 [place] 778932-07-25 02:20:00 Test Item Value Reference Range Interpretation Comments Monocytes (test code = Monocytes) 5.0 2.0-12.0 [place] 778932-07-25 02:20:00 Test Item Value Reference Range Interpretation Comments Eosinophils (test code = 0.3 See_Comment [A utomated message] The Eosinophils) system which ge nerated this result tra nsmitted reference range : <=4.0. The reference r hugo was not used to int erpret this result as normal/abnormal . [facility] CenterIljfyzoRNRWESLSYC0626-13-79 02:20:00 Test Item Value Reference Range Interpretation Comments Basophils (test code = 0.4 See_Comment [Aut omated message] The Basophils) system which ge nerated this result tra nsmitted reference range : <=1.0. The reference r hugo was not used to int erpret this result as normal/abnormal . [facility] CenterHblnqcrENHIUKAOPH1271-50-12 02:20:00 Test Item Value Reference Range Interpretation Comments Neutrophils # (test code = Neutrophils 7.4 1.5-8.1 #) [facility] CenterFnyqdjaJQDVGOLQCN2286-89-79 02:20:00 Test Item Value Reference Range Interpretation Comments Lymphocytes # (test code = Lymphocytes 0.7 1.0-5.5 #) [facility] CenterFexhltkAFQEFYJGWX6237-54-46 02:20:00 Test Item Value Reference Range Interpretation Comments Monocytes # (test code 0.4 See_Comment [Aut omated message] The = Monocytes #) system which generated this result tra nsmitted reference range : <=0.8. The reference r hugo was not used to int erpret this result as normal/abnormal . [facility] CenterFmwnazcSCVYHWIMJK4169-01-83 02:20:00 Test Item Value Reference Range Interpretation Comments Microcyte (test code = 1+ *ABN*(06/12/22 Microcyte) 9:20 PM) [facility] [id number] 02:20:00 Test Item Value Reference Range Interpretation Comments HS Troponin I (test code = HS Troponin 52 I) [facility] [id number] 02:20:00 Test Item Value Reference Range Interpretation Comments Glucose Lvl (test code = Glucose Lvl) 103 70-99 [facility] [id number] 02:20:00 Test Item Value Reference Range Interpretation Comments BUN (test code = BUN) 22 - [facility] [id number] 02:20:00 Test Item Value Reference Range Interpretation Comments Creatinine Lvl (test code = Creatinine 0.90 0.50-1.40 Lvl) [facility] [id number] 02:20:00 Test Item Value Reference Range Interpretation Comments Sodium Lvl (test code = Sodium Lvl) 131 135-145 [facility] [id number] 02:20:00 Test Item Value Reference Range Interpretation Comments Potassium Lvl (test code = Potassium 4.2 3.5-5.1 Lvl) [facility] [id number] 02:20:00 Test Item Value Reference Range Interpretation Comments Chloride Lvl (test code = Chloride Lvl) 97 95-109 [facility] [id number] 02:20:00 Test Item Value Reference Range Interpretation Comments CO2 (test code = CO2) 26 24-32 [facility] [id number] 02:20:00 Test Item Value Reference Range Interpretation Comments Calcium Lvl (test code = Calcium Lvl) 8.7 8.5-10.5 [facility] [id number] 02:20:00 Test Item Value Reference Range Interpretation Comments Total Protein (test code = Total 7.0 6.4-8.4 Protein) [facility] [id number] 02:20:00 Test Item Value Reference Range Interpretation Comments Albumin Lvl (test code = Albumin Lvl) 3.4 3.5-5.0 [facility] [id number] 02:20:00 Test Item Value Reference Range Interpretation Comments ALT (test code = ALT) 18 See_Comment [Auto mated message] The system which ge nerated this result transmit lavon reference range : <=65. The reference range was not used to interpr et this result as dionne l/abnormal. [facility] [id number] 02:20:00 Test Item Value Reference Range Interpretation Comments AST (test code = AST) 27 See_Comment [Auto mated message] The system which ge nerated this result transmit lavon reference range : <=37. The reference range was not used to interpr et this result as dionne l/abnormal. [facility] [id number] 02:20:00 Test Item Value Reference Range Interpretation Comments Alk Phos (test code = Alk Phos) 57 39-136 [facility] [id number] 02:20:00 Test Item Value Reference Range Interpretation Comments Bili Total (test code = Bili Total) 1.0 0.2-1.3 [place] 852652-07-25 02:20:00 Test Item Value Reference Range Interpretation Comments AGAP (test code = AGAP) 12.2 10.0-20.0 [place] 852652-07-25 02:20:00 Test Item Value Reference Range Interpretation Comments B/C Ratio (test code = B/C Ratio) 24 1 6-25 [place] 852652-07-25 02:20:00 Test Item Value Reference Range Interpretation Comments Globulin (test code = Globulin) 3.6 2.7-4.2 [place] 852652-07-25 02:20:00 Test Item Value Reference Range Interpretation Comments A/G Ratio (test code = A/G Ratio) 0.9 1 0.7-1.6 [place] 852652-07-25 02:20:00 Test Item Value Reference Range Interpretation Comments eGFR (test code = eGFR) 62 [facility] CenterNmqraovWUVELPODHT2121-18-37 02:20:00 Test Item Value Reference Range Interpretation Comments WBC (test code = WBC) 8.6 3.7-10.4 [place] 778932-07-25 02:20:00 Test Item Value Reference Range Interpretation Comments RBC (test code = RBC) 3.58 4.20-5.40 [place] 778932-07-25 02:20:00 Test Item Value Reference Range Interpretation Comments Hgb (test code = Hgb) 8.8 12.0-16.0 [place] 778932-07-25 02:20:00 Test Item Value Reference Range Interpretation Comments Hct (test code = Hct) 27.1 36.0-48.0 [place] 778932-07-25 02:20:00 Test Item Value Reference Range Interpretation Comments MCV (test code = MCV) 75.6 80.0-98.0 [place] 778932-07-25 02:20:00 Test Item Value Reference Range Interpretation Comments MCH (test code = MCH) 24.5 pg 27.0-31.0 [place] 778932-07-25 02:20:00 Test Item Value Reference Range Interpretation Comments MCHC (test code = MCHC) 32.4 32.0-36.0 [place] 778932-07-25 02:20:00 Test Item Value Reference Range Interpretation Comments RDW (test code = RDW) 21.1 11.5-14.5 [place] 778932-07-25 02:20:00 Test Item Value Reference Range Interpretation Comments Platelet (test code = Platelet) 297 133-450 [place] 778932-07-25 02:20:00 Test Item Value Reference Range Interpretation Comments MPV (test code = MPV) 7.5 7.4-10.4 [place] 778932-07-25 02:20:00 Test Item Value Reference Range Interpretation Comments Segs (test code = Segs) 85.8 45.0-75.0 [place] 778932-07-25 02:20:00 Test Item Value Reference Range Interpretation Comments Lymphocytes (test code = Lymphocytes) 8.5 20.0-40.0 [place] 778932-07-25 02:20:00 Test Item Value Reference Range Interpretation Comments Monocytes (test code = Monocytes) 5.0 2.0-12.0 [place] 778932-07-25 02:20:00 Test Item Value Reference Range Interpretation Comments Eosinophils (test code = 0.3 See_Comment [A utomated message] The Eosinophils) system which ge nerated this result tra nsmitted reference range : <=4.0. The reference r hugo was not used to int erpret this result as normal/abnormal . [place] 778932-07-25 02:20:00 Test Item Value Reference Range Interpretation Comments Basophils (test code = 0.4 See_Comment [Aut omated message] The Basophils) system which ge nerated this result tra nsmitted reference range : <=1.0. The reference r hugo was not used to int erpret this result as normal/abnormal . [place] 778932-07-25 02:20:00 Test Item Value Reference Range Interpretation Comments Neutrophils # (test code = Neutrophils 7.4 1.5-8.1 #) [place] 778932-07-25 02:20:00 Test Item Value Reference Range Interpretation Comments Lymphocytes # (test code = Lymphocytes 0.7 1.0-5.5 #) [place] 778932-07-25 02:20:00 Test Item Value Reference Range Interpretation Comments Monocytes # (test code 0.4 See_Comment [Aut omated message] The = Monocytes #) system which generated this result tra nsmitted reference range : <=0.8. The reference r hugo was not used to int erpret this result as normal/abnormal . [facility]villeVhinmnmVCUQPHXCAW6263-93-25 02:20:00 Test Item Value Reference Range Interpretation Comments Microcyte (test code = 1+ *ABN*(06/12/22 Microcyte) 9:20 PM) [facility] [id number] 02:20:00 Test Item Value Reference Range Interpretation Comments HS Troponin I (test code = HS Troponin 52 I) [facility] [id number] 02:20:00 Test Item Value Reference Range Interpretation Comments Glucose Lvl (test code = Glucose Lvl) 103 70-99 [facility]2022-07-25 02:20:00 Test Item Value Reference Range Interpretation Comments BUN (test code = BUN) 22 - [facility]2022-07-25 02:20:00 Test Item Value Reference Range Interpretation Comments Creatinine Lvl (test code = Creatinine 0.90 0.50-1.40 Lvl) [facility] [id number] 02:20:00 Test Item Value Reference Range Interpretation Comments Sodium Lvl (test code = Sodium Lvl) 131 135-145 [facility]2022-07-25 02:20:00 Test Item Value Reference Range Interpretation Comments Potassium Lvl (test code = Potassium 4.2 3.5-5.1 Lvl) [facility]2022-07-25 02:20:00 Test Item Value Reference Range Interpretation Comments Chloride Lvl (test code = Chloride Lvl) 97 95-109 [facility]2022-07-25 02:20:00 Test Item Value Reference Range Interpretation Comments CO2 (test code = CO2) 26 24-32 [facility] [id number] 02:20:00 Test Item Value Reference Range Interpretation Comments Calcium Lvl (test code = Calcium Lvl) 8.7 8.5-10.5 [facility]2022-07-25 02:20:00 Test Item Value Reference Range Interpretation Comments Total Protein (test code = Total 7.0 6.4-8.4 Protein) [place] 852652-07-25 02:20:00 Test Item Value Reference Range Interpretation Comments Albumin Lvl (test code = Albumin Lvl) 3.4 3.5-5.0 [place] 852652-07-25 02:20:00 Test Item Value Reference Range Interpretation Comments ALT (test code = ALT) 18 See_Comment [Auto mated message] The system which ge nerated this result transmit lavon reference range : <=65. The reference range was not used to interpr et this result as dionne l/abnormal. [facility]2022-07-25 02:20:00 Test Item Value Reference Range Interpretation Comments AST (test code = AST) 27 See_Comment [Auto mated message] The system which ge nerated this result transmit lavon reference range : <=37. The reference range was not used to interpr et this result as dionne l/abnormal. [place] 852652-07-25 02:20:00 Test Item Value Reference Range Interpretation Comments Alk Phos (test code = Alk Phos) 57 39-136 [place] 852652-07-25 02:20:00 Test Item Value Reference Range Interpretation Comments Bili Total (test code = Bili Total) 1.0 0.2-1.3 [place] 852652-07-25 02:20:00 Test Item Value Reference Range Interpretation Comments AGAP (test code = AGAP) 12.2 10.0-20.0 [place] 852652-07-25 02:20:00 Test Item Value Reference Range Interpretation Comments B/C Ratio (test code = B/C Ratio) 24 1 6-25 [place] 852652-07-25 02:20:00 Test Item Value Reference Range Interpretation Comments Globulin (test code = Globulin) 3.6 2.7-4.2 [place] 852652-07-25 02:20:00 Test Item Value Reference Range Interpretation Comments A/G Ratio (test code = A/G Ratio) 0.9 1 0.7-1.6 [place] 852652-07-25 02:20:00 Test Item Value Reference Range Interpretation Comments eGFR (test code = eGFR) 62 [facility]villeOwypnngDWHBZZIWTF5115-91-77 02:20:00 Test Item Value Reference Range Interpretation Comments WBC (test code = WBC) 8.6 3.7-10.4 [facility] CenterFzczqdsOXULNDNYSX0732-51-91 02:20:00 Test Item Value Reference Range Interpretation Comments RBC (test code = RBC) 3.58 4.20-5.40 [facility] CenterXhauttzYDINHNDVRI1710-64-89 02:20:00 Test Item Value Reference Range Interpretation Comments Hgb (test code = Hgb) 8.8 12.0-16.0 [facility] CenterZhsafrtODMIPAWHAN3124-60-98 02:20:00 Test Item Value Reference Range Interpretation Comments Hct (test code = Hct) 27.1 36.0-48.0 [facility] CenterJtkmhloYBDWRZNNCZ4058-30-58 02:20:00 Test Item Value Reference Range Interpretation Comments MCV (test code = MCV) 75.6 80.0-98.0 [facility] CenterRjhciyiGLTCFGBWXD4779-51-12 02:20:00 Test Item Value Reference Range Interpretation Comments MCH (test code = MCH) 24.5 pg 27.0-31.0 [facility] CenterTegktjaESQWBUJJMG2550-43-82 02:20:00 Test Item Value Reference Range Interpretation Comments MCHC (test code = MCHC) 32.4 32.0-36.0 [facility] CenterGsupcpeSPZNPESLYE8245-67-32 02:20:00 Test Item Value Reference Range Interpretation Comments RDW (test code = RDW) 21.1 11.5-14.5 [facility] CenterZoqlzxvYEEENNJXTY9977-48-60 02:20:00 Test Item Value Reference Range Interpretation Comments Platelet (test code = Platelet) 297 133-450 [facility] CenterRoospmmKEUZLRFELP8583-71-72 02:20:00 Test Item Value Reference Range Interpretation Comments MPV (test code = MPV) 7.5 7.4-10.4 [facility] CenterEsrjszpLJHNPOAQDX2211-37-32 02:20:00 Test Item Value Reference Range Interpretation Comments Segs (test code = Segs) 85.8 45.0-75.0 [place] 778932-07-25 02:20:00 Test Item Value Reference Range Interpretation Comments Lymphocytes (test code = Lymphocytes) 8.5 20.0-40.0 [place] 778932-07-25 02:20:00 Test Item Value Reference Range Interpretation Comments Monocytes (test code = Monocytes) 5.0 2.0-12.0 [facility] CenterJxfkfjuJHBDQFMCBX6868-85-87 02:20:00 Test Item Value Reference Range Interpretation Comments Eosinophils (test code = 0.3 See_Comment [A utomated message] The Eosinophils) system which ge nerated this result tra nsmitted reference range : <=4.0. The reference r hugo was not used to int erpret this result as normal/abnormal . [facility] CenterQwceqvxAKKHNOFDVF1630-02-61 02:20:00 Test Item Value Reference Range Interpretation Comments Basophils (test code = 0.4 See_Comment [Aut omated message] The Basophils) system which ge nerated this result tra nsmitted reference range : <=1.0. The reference r hugo was not used to int erpret this result as normal/abnormal . [facility] CenterWhfdearHMLVZSELXL8716-12-31 02:20:00 Test Item Value Reference Range Interpretation Comments Neutrophils # (test code = Neutrophils 7.4 1.5-8.1 #) [facility] CenterNjjjlapYSVOLUQTKQ5308-55-72 02:20:00 Test Item Value Reference Range Interpretation Comments Lymphocytes # (test code = Lymphocytes 0.7 1.0-5.5 #) [facility] CenterQlppdljBJKHQFFNLX2974-49-83 02:20:00 Test Item Value Reference Range Interpretation Comments Monocytes # (test code 0.4 See_Comment [Aut omated message] The = Monocytes #) system which generated this result tra nsmitted reference range : <=0.8. The reference r hugo was not used to int erpret this result as normal/abnormal . [facility] CenterFwzntfqRHDRYZVMSW4746-02-08 02:20:00 Test Item Value Reference Range Interpretation Comments Microcyte (test code = 1+ *ABN*(06/12/22 Microcyte) 9:20 PM) [facility] [id number] 02:20:00 Test Item Value Reference Range Interpretation Comments HS Troponin I (test code = HS Troponin 52 I) [facility] [id number] 02:20:00 Test Item Value Reference Range Interpretation Comments Glucose Lvl (test code = Glucose Lvl) 103 70-99 [facility] [id number] 02:20:00 Test Item Value Reference Range Interpretation Comments BUN (test code = BUN) 22 06-10 [facility] [id number] 02:20:00 Test Item Value Reference Range Interpretation Comments Creatinine Lvl (test code = Creatinine 0.90 0.50-1.40 Lvl) [place] 852652-07-25 02:20:00 Test Item Value Reference Range Interpretation Comments Sodium Lvl (test code = Sodium Lvl) 131 135-145 [place] 852652-07-25 02:20:00 Test Item Value Reference Range Interpretation Comments Potassium Lvl (test code = Potassium 4.2 3.5-5.1 Lvl) [place] 852652-07-25 02:20:00 Test Item Value Reference Range Interpretation Comments Chloride Lvl (test code = Chloride Lvl) 97 95-109 [place] 852652-07-25 02:20:00 Test Item Value Reference Range Interpretation Comments CO2 (test code = CO2) 26 24-32 [place] 852652-07-25 02:20:00 Test Item Value Reference Range Interpretation Comments Calcium Lvl (test code = Calcium Lvl) 8.7 8.5-10.5 [place] 852652-07-25 02:20:00 Test Item Value Reference Range Interpretation Comments Total Protein (test code = Total 7.0 6.4-8.4 Protein) [place] 852652-07-25 02:20:00 Test Item Value Reference Range Interpretation Comments Albumin Lvl (test code = Albumin Lvl) 3.4 3.5-5.0 [place] 852652-07-25 02:20:00 Test Item Value Reference Range Interpretation Comments ALT (test code = ALT) 18 See_Comment [Auto mated message] The system which [employer] nerated this result transmit lavon reference range : <=65. The reference range was not used to interpr et this result as dionne l/abnormal. [place] 852652-07-25 02:20:00 Test Item Value Reference Range Interpretation Comments AST (test code = AST) 27 See_Comment [Auto mated message] The system which [employer] nerated this result transmit lavon reference range : <=37. The reference range was not used to interpr et this result as dionne l/abnormal. [place] 852652-07-25 02:20:00 Test Item Value Reference Range Interpretation Comments Alk Phos (test code = Alk Phos) 57 39-136 [facility]2022-07-25 02:20:00 Test Item Value Reference Range Interpretation Comments Bili Total (test code = Bili Total) 1.0 0.2-1.3 [place] 852652-07-25 02:20:00 Test Item Value Reference Range Interpretation Comments AGAP (test code = AGAP) 12.2 10.0-20.0 [facility]2022-07-25 02:20:00 Test Item Value Reference Range Interpretation Comments B/C Ratio (test code = B/C Ratio) 24 1 6-25 [place] 852652-07-25 02:20:00 Test Item Value Reference Range Interpretation Comments Globulin (test code = Globulin) 3.6 2.7-4.2 [facility]2022-07-25 02:20:00 Test Item Value Reference Range Interpretation Comments A/G Ratio (test code = A/G Ratio) 0.9 1 0.7-1.6 [facility]2022-07-25 02:20:00 Test Item Value Reference Range Interpretation Comments eGFR (test code = eGFR) 62 [facility] CenterUsxccwwDTUCWVNSHW5420-31-62 02:20:00 Test Item Value Reference Range Interpretation Comments WBC (test code = WBC) 8.6 3.7-10.4 [place] 778932-07-25 02:20:00 Test Item Value Reference Range Interpretation Comments RBC (test code = RBC) 3.58 4.20-5.40 [place] 778932-07-25 02:20:00 Test Item Value Reference Range Interpretation Comments Hgb (test code = Hgb) 8.8 12.0-16.0 [place] 778932-07-25 02:20:00 Test Item Value Reference Range Interpretation Comments Hct (test code = Hct) 27.1 36.0-48.0 [place] 778932-07-25 02:20:00 Test Item Value Reference Range Interpretation Comments MCV (test code = MCV) 75.6 80.0-98.0 [place] 778932-07-25 02:20:00 Test Item Value Reference Range Interpretation Comments MCH (test code = MCH) 24.5 pg 27.0-31.0 [place] 778932-07-25 02:20:00 Test Item Value Reference Range Interpretation Comments MCHC (test code = MCHC) 32.4 32.0-36.0 [facility] CenterSfdnlcxAFZHJJSTLY3786-31-33 02:20:00 Test Item Value Reference Range Interpretation Comments RDW (test code = RDW) 21.1 11.5-14.5 [facility] CenterMbotjtsMFQQRELAIO1234-94-50 02:20:00 Test Item Value Reference Range Interpretation Comments Platelet (test code = Platelet) 297 133-450 [place] 778932-07-25 02:20:00 Test Item Value Reference Range Interpretation Comments MPV (test code = MPV) 7.5 7.4-10.4 [facility] CenterRoixxngWVIHXGYLFQ0294-85-67 02:20:00 Test Item Value Reference Range Interpretation Comments Segs (test code = Segs) 85.8 45.0-75.0 [place] 778932-07-25 02:20:00 Test Item Value Reference Range Interpretation Comments Lymphocytes (test code = Lymphocytes) 8.5 20.0-40.0 [place] 778932-07-25 02:20:00 Test Item Value Reference Range Interpretation Comments Monocytes (test code = Monocytes) 5.0 2.0-12.0 [facility] CenterKqwovzdXHLEWFOCLD4155-87-90 02:20:00 Test Item Value Reference Range Interpretation Comments Eosinophils (test code = 0.3 See_Comment [A utomated message] The Eosinophils) system which ge nerated this result tra nsmitted reference range : <=4.0. The reference r hugo was not used to int erpret this result as normal/abnormal . [facility] CenterFbfibdfBDNRVYNOAG3140-39-61 02:20:00 Test Item Value Reference Range Interpretation Comments Basophils (test code = 0.4 See_Comment [Aut omated message] The Basophils) system which ge nerated this result tra nsmitted reference range : <=1.0. The reference r hugo was not used to int erpret this result as normal/abnormal . [facility] CenterKvprelmTEFCUPDYXO3938-21-19 02:20:00 Test Item Value Reference Range Interpretation Comments Neutrophils # (test code = Neutrophils 7.4 1.5-8.1 #) [facility] CenterJqbnluwFHYSRDEZLL3489-16-93 02:20:00 Test Item Value Reference Range Interpretation Comments Lymphocytes # (test code = Lymphocytes 0.7 1.0-5.5 #) [facility]57[facility]05 02:20:00 Test Item Value Reference Range Interpretation Comments Monocytes # (test code 0.4 See_Comment [Aut omated message] The = Monocytes #) system which generated this result tra nsmitted reference range : <=0.8. The reference r hugo was not used to int erpret this result as normal/abnormal . [facility]SciqwjfFOZZSLBTYF9754-23-31 02:20:00 Test Item Value Reference Range Interpretation Comments Microcyte (test code = 1+ *ABN*(06/12/22 Microcyte) 9:20 PM) [facility] [id number] 02:20:00 Test Item Value Reference Range Interpretation Comments HS Troponin I (test code = HS Troponin 52 I) [facility]2022-07-25 02:20:00 Test Item Value Reference Range Interpretation Comments Glucose Lvl (test code = Glucose Lvl) 103 70-99 [facility]2022-07-25 02:20:00 Test Item Value Reference Range Interpretation Comments BUN (test code = BUN) 22 7-22 [facility]2022-07-25 02:20:00 Test Item Value Reference Range Interpretation Comments Creatinine Lvl (test code = Creatinine 0.90 0.50-1.40 Lvl) [facility]2022-07-25 02:20:00 Test Item Value Reference Range Interpretation Comments Sodium Lvl (test code = Sodium Lvl) 131 135-145 [facility]2022-07-25 02:20:00 Test Item Value Reference Range Interpretation Comments Potassium Lvl (test code = Potassium 4.2 3.5-5.1 Lvl) [facility]2022-07-25 02:20:00 Test Item Value Reference Range Interpretation Comments Chloride Lvl (test code = Chloride Lvl) 97 95-109 [facility]2022-07-25 02:20:00 Test Item Value Reference Range Interpretation Comments CO2 (test code = CO2) 26 24-32 [facility]2022-07-25 02:20:00 Test Item Value Reference Range Interpretation Comments Calcium Lvl (test code = Calcium Lvl) 8.7 8.5-10.5 [facility] [id number] 02:20:00 Test Item Value Reference Range Interpretation Comments Total Protein (test code = Total 7.0 6.4-8.4 Protein) [facility]2022-07-25 02:20:00 Test Item Value Reference Range Interpretation Comments Albumin Lvl (test code = Albumin Lvl) 3.4 3.5-5.0 [facility] [id number] 02:20:00 Test Item Value Reference Range Interpretation Comments ALT (test code = ALT) 18 See_Comment [Auto mated message] The system which ge nerated this result transmit lavon reference range : <=65. The reference range was not used to interpr et this result as dionne l/abnormal. [facility] [id number] 02:20:00 Test Item Value Reference Range Interpretation Comments AST (test code = AST) 27 See_Comment [Auto mated message] The system which ge nerated this result transmit lavon reference range : <=37. The reference range was not used to interpr et this result as dionne l/abnormal. [facility] [employer] [id number] 02:20:00 Test Item Value Reference Range Interpretation Comments Alk Phos (test code = Alk Phos) 57 39-136 [facility] [employer] [id number] 02:20:00 Test Item Value Reference Range Interpretation Comments Bili Total (test code = Bili Total) 1.0 0.2-1.3 [facility] [id number] 02:20:00 Test Item Value Reference Range Interpretation Comments AGAP (test code = AGAP) 12.2 10.0-20.0 [facility] [employer] [id number] 02:20:00 Test Item Value Reference Range Interpretation Comments B/C Ratio (test code = B/C Ratio) 24 1 6-25 [facility] [employer] [id number] 02:20:00 Test Item Value Reference Range Interpretation Comments Globulin (test code = Globulin) 3.6 2.7-4.2 [facility] [id number] 02:20:00 Test Item Value Reference Range Interpretation Comments A/G Ratio (test code = A/G Ratio) 0.9 1 0.7-1.6 [facility] [employer] [id number] 02:20:00 Test Item Value Reference Range Interpretation Comments eGFR (test code = eGFR) 62 [facility]DudxpzdQBXSDARDNT4754-81-61 02:20:00 Test Item Value Reference Range Interpretation Comments WBC (test code = WBC) 8.6 3.7-10.4 [place] 778932-07-25 02:20:00 Test Item Value Reference Range Interpretation Comments RBC (test code = RBC) 3.58 4.20-5.40 [place] 778932-07-25 02:20:00 Test Item Value Reference Range Interpretation Comments Hgb (test code = Hgb) 8.8 12.0-16.0 [place] 778932-07-25 02:20:00 Test Item Value Reference Range Interpretation Comments Hct (test code = Hct) 27.1 36.0-48.0 [place] 778932-07-25 02:20:00 Test Item Value Reference Range Interpretation Comments MCV (test code = MCV) 75.6 80.0-98.0 [place] 778932-07-25 02:20:00 Test Item Value Reference Range Interpretation Comments MCH (test code = MCH) 24.5 pg 27.0-31.0 [facility] CenterNjvalfrEVGHRHXIJM1924-49-61 02:20:00 Test Item Value Reference Range Interpretation Comments MCHC (test code = MCHC) 32.4 32.0-36.0 [facility] CenterKzwdpbwACOLHLNOWS9166-22-14 02:20:00 Test Item Value Reference Range Interpretation Comments RDW (test code = RDW) 21.1 11.5-14.5 [place] 778932-07-25 02:20:00 Test Item Value Reference Range Interpretation Comments Platelet (test code = Platelet) 297 133-450 [place] 778932-07-25 02:20:00 Test Item Value Reference Range Interpretation Comments MPV (test code = MPV) 7.5 7.4-10.4 [place] 778932-07-25 02:20:00 Test Item Value Reference Range Interpretation Comments Segs (test code = Segs) 85.8 45.0-75.0 [place] 778932-07-25 02:20:00 Test Item Value Reference Range Interpretation Comments Lymphocytes (test code = Lymphocytes) 8.5 20.0-40.0 [facility] CenterUusldgvBNEGFITFWV9368-01-39 02:20:00 Test Item Value Reference Range Interpretation Comments Monocytes (test code = Monocytes) 5.0 2.0-12.0 [facility] CenterApuzmfkISZGRVBREY2490-58-40 02:20:00 Test Item Value Reference Range Interpretation Comments Eosinophils (test code = 0.3 See_Comment [A utomated message] The Eosinophils) system which ge nerated this result tra nsmitted reference range : <=4.0. The reference r hugo was not used to int erpret this result as normal/abnormal . [facility] CenterPoaoibkPDSLZQURUC0923-19-64 02:20:00 Test Item Value Reference Range Interpretation Comments Basophils (test code = 0.4 See_Comment [Aut omated message] The Basophils) system which ge nerated this result tra nsmitted reference range : <=1.0. The reference r hugo was not used to int erpret this result as normal/abnormal . [facility] CenterEzoiyqpBXYQKONQTT7498-19-90 02:20:00 Test Item Value Reference Range Interpretation Comments Neutrophils # (test code = Neutrophils 7.4 1.5-8.1 #) [facility] CenterFemmlmjSEQNSAZJQS5983-49-23 02:20:00 Test Item Value Reference Range Interpretation Comments Lymphocytes # (test code = Lymphocytes 0.7 1.0-5.5 #) [facility] CenterLtrpjbhGMIMHQLIKD5476-22-43 02:20:00 Test Item Value Reference Range Interpretation Comments Monocytes # (test code 0.4 See_Comment [Aut omated message] The = Monocytes #) system which generated this result tra nsmitted reference range : <=0.8. The reference r hugo was not used to int erpret this result as normal/abnormal . [facility] CenterJsdrdxbGCVTMNQCTL3401-35-55 02:20:00 Test Item Value Reference Range Interpretation Comments Microcyte (test code = 1+ *ABN*(06/12/22 Microcyte) 9:20 PM) [facility] [id number] 02:20:00 Test Item Value Reference Range Interpretation Comments HS Troponin I (test code = HS Troponin 52 I) [facility]2022-07-25 02:20:00 Test Item Value Reference Range Interpretation Comments Glucose Lvl (test code = Glucose Lvl) 103 70-99 [facility]2022-07-25 02:20:00 Test Item Value Reference Range Interpretation Comments BUN (test code = BUN) 22 7-22 [place] [address]-07-25 02:20:00 Test Item Value Reference Range Interpretation Comments Creatinine Lvl (test code = Creatinine 0.90 0.50-1.40 Lvl) [place] 852652-07-25 02:20:00 Test Item Value Reference Range Interpretation Comments Sodium Lvl (test code = Sodium Lvl) 131 135-145 [place] 852652-07-25 02:20:00 Test Item Value Reference Range Interpretation Comments Potassium Lvl (test code = Potassium 4.2 3.5-5.1 Lvl) [place] [address]-07-25 02:20:00 Test Item Value Reference Range Interpretation Comments Chloride Lvl (test code = Chloride Lvl) 97 95-109 [place] [address]-07-25 02:20:00 Test Item Value Reference Range Interpretation Comments CO2 (test code = CO2) 26 24-32 [place] 852652-07-25 02:20:00 Test Item Value Reference Range Interpretation Comments Calcium Lvl (test code = Calcium Lvl) 8.7 8.5-10.5 [place] [address]-07-25 02:20:00 Test Item Value Reference Range Interpretation Comments Total Protein (test code = Total 7.0 6.4-8.4 Protein) [place] [address]-07-25 02:20:00 Test Item Value Reference Range Interpretation Comments Albumin Lvl (test code = Albumin Lvl) 3.4 3.5-5.0 [place] [address]-07-25 02:20:00 Test Item Value Reference Range Interpretation Comments ALT (test code = ALT) 18 See_Comment [Auto mated message] The system which ge nerated this result transmit lavon reference range : <=65. The reference range was not used to interpr et this result as dionne l/abnormal. [place] 852652-07-25 02:20:00 Test Item Value Reference Range Interpretation Comments AST (test code = AST) 27 See_Comment [Auto mated message] The system which ge nerated this result transmit lavon reference range : <=37. The reference range was not used to interpr et this result as dionne l/abnormal. [facility]2022-07-25 02:20:00 Test Item Value Reference Range Interpretation Comments Alk Phos (test code = Alk Phos) 57 39-136 [facility]2022-07-25 02:20:00 Test Item Value Reference Range Interpretation Comments Bili Total (test code = Bili Total) 1.0 0.2-1.3 [facility]2022-07-25 02:20:00 Test Item Value Reference Range Interpretation Comments AGAP (test code = AGAP) 12.2 10.0-20.0 [facility]2022-07-25 02:20:00 Test Item Value Reference Range Interpretation Comments B/C Ratio (test code = B/C Ratio) 24 1 6-25 [place] 852652-07-25 02:20:00 Test Item Value Reference Range Interpretation Comments Globulin (test code = Globulin) 3.6 2.7-4.2 [facility]2022-07-25 02:20:00 Test Item Value Reference Range Interpretation Comments A/G Ratio (test code = A/G Ratio) 0.9 1 0.7-1.6 [facility]2022-07-25 02:20:00 Test Item Value Reference Range Interpretation Comments eGFR (test code = eGFR) 62 [facility] CenterIrrorwdDRMCLFLIQS7047-72-90 02:20:00 Test Item Value Reference Range Interpretation Comments WBC (test code = WBC) 8.6 3.7-10.4 [facility] CenterSsamoawMHYQIZRWXN6821-11-63 02:20:00 Test Item Value Reference Range Interpretation Comments RBC (test code = RBC) 3.58 4.20-5.40 [place] 778932-07-25 02:20:00 Test Item Value Reference Range Interpretation Comments Hgb (test code = Hgb) 8.8 12.0-16.0 [place] 778932-07-25 02:20:00 Test Item Value Reference Range Interpretation Comments Hct (test code = Hct) 27.1 36.0-48.0 [place] 778932-07-25 02:20:00 Test Item Value Reference Range Interpretation Comments MCV (test code = MCV) 75.6 80.0-98.0 [place] 778932-07-25 02:20:00 Test Item Value Reference Range Interpretation Comments MCH (test code = MCH) 24.5 pg 27.0-31.0 [facility] CenterSlrgnumKNMXMKVDKJ7464-06-95 02:20:00 Test Item Value Reference Range Interpretation Comments MCHC (test code = MCHC) 32.4 32.0-36.0 [facility] CenterNguucccMFZYXHZFMG4082-91-01 02:20:00 Test Item Value Reference Range Interpretation Comments RDW (test code = RDW) 21.1 11.5-14.5 [facility] CenterLnkclwxKXHPKZFSBZ1780-05-93 02:20:00 Test Item Value Reference Range Interpretation Comments Platelet (test code = Platelet) 297 133-450 [facility] CenterZucemexEOYPIQONWH6049-19-12 02:20:00 Test Item Value Reference Range Interpretation Comments MPV (test code = MPV) 7.5 7.4-10.4 [facility] CenterZiainjpLBVOFOKQBI3627-22-62 02:20:00 Test Item Value Reference Range Interpretation Comments Segs (test code = Segs) 85.8 45.0-75.0 [facility] CenterGwnudlqXIOJCNXEXS3724-57-76 02:20:00 Test Item Value Reference Range Interpretation Comments Lymphocytes (test code = Lymphocytes) 8.5 20.0-40.0 [facility] CenterOdqvgpnGWVNBFBPNY9023-42-46 02:20:00 Test Item Value Reference Range Interpretation Comments Monocytes (test code = Monocytes) 5.0 2.0-12.0 [facility] CenterScowziqZRLYLJBIUY9328-36-50 02:20:00 Test Item Value Reference Range Interpretation Comments Eosinophils (test code = 0.3 See_Comment [A utomated message] The Eosinophils) system which ge nerated this result tra nsmitted reference range : <=4.0. The reference r hugo was not used to int erpret this result as normal/abnormal . [facility] CenterZfosyxwUTZIDRAJJF5981-47-64 02:20:00 Test Item Value Reference Range Interpretation Comments Basophils (test code = 0.4 See_Comment [Aut omated message] The Basophils) system which ge nerated this result tra nsmitted reference range : <=1.0. The reference r hugo was not used to int erpret this result as normal/abnormal . [facility] CenterMypjfnxXZEFEKZZYV7142-96-05 02:20:00 Test Item Value Reference Range Interpretation Comments Neutrophils # (test code = Neutrophils 7.4 1.5-8.1 #) [facility]villeHytzjfpGAIQLULCPL1333-24-05 02:20:00 Test Item Value Reference Range Interpretation Comments Lymphocytes # (test code = Lymphocytes 0.7 1.0-5.5 #) [facility] CenterJinjgoaZWFXMZQMUW4659-40-68 02:20:00 Test Item Value Reference Range Interpretation Comments Monocytes # (test code 0.4 See_Comment [Aut omated message] The = Monocytes #) system which generated this result tra nsmitted reference range : <=0.8. The reference r hugo was not used to int erpret this result as normal/abnormal . [facility]PCGL[facility]CKF2405[facility]78-31 02:20:00 Test Item Value Reference Range Interpretation Comments Microcyte (test code = 1+ *ABN*(06/12/22 Microcyte) 9:20 PM) [facility]2022-07-25 02:20:00 Test Item Value Reference Range Interpretation Comments HS Troponin I (test code = HS Troponin 52 I) [facility] [id number] 02:20:00 Test Item Value Reference Range Interpretation Comments Glucose Lvl (test code = Glucose Lvl) 103 70-99 [facility] [id number] 02:20:00 Test Item Value Reference Range Interpretation Comments BUN (test code = BUN) 22 7-22 [facility]2022-07-25 02:20:00 Test Item Value Reference Range Interpretation Comments Creatinine Lvl (test code = Creatinine 0.90 0.50-1.40 Lvl) [facility] [id number] 02:20:00 Test Item Value Reference Range Interpretation Comments Sodium Lvl (test code = Sodium Lvl) 131 135-145 [facility]2022-07-25 02:20:00 Test Item Value Reference Range Interpretation Comments Potassium Lvl (test code = Potassium 4.2 3.5-5.1 Lvl) [facility] [id number] 02:20:00 Test Item Value Reference Range Interpretation Comments Chloride Lvl (test code = Chloride Lvl) 97 95-109 [facility] [id number] 02:20:00 Test Item Value Reference Range Interpretation Comments CO2 (test code = CO2) 26 24-32 [place] 852652-07-25 02:20:00 Test Item Value Reference Range Interpretation Comments Calcium Lvl (test code = Calcium Lvl) 8.7 8.5-10.5 [place] 852652-07-25 02:20:00 Test Item Value Reference Range Interpretation Comments Total Protein (test code = Total 7.0 6.4-8.4 Protein) [facility] [id number] 02:20:00 Test Item Value Reference Range Interpretation Comments Albumin Lvl (test code = Albumin Lvl) 3.4 3.5-5.0 [facility] [id number] 02:20:00 Test Item Value Reference Range Interpretation Comments ALT (test code = ALT) 18 See_Comment [Auto mated message] The system which ge nerated this result transmit lavon reference range : <=65. The reference range was not used to interpr et this result as dionne l/abnormal. [facility] [id number] 02:20:00 Test Item Value Reference Range Interpretation Comments AST (test code = AST) 27 See_Comment [Auto mated message] The system which ge nerated this result transmit lavon reference range : <=37. The reference range was not used to interpr et this result as dionne l/abnormal. [facility] [id number] 02:20:00 Test Item Value Reference Range Interpretation Comments Alk Phos (test code = Alk Phos) 57 39-136 [facility] [id number] 02:20:00 Test Item Value Reference Range Interpretation Comments Bili Total (test code = Bili Total) 1.0 0.2-1.3 [facility] [id number] 02:20:00 Test Item Value Reference Range Interpretation Comments AGAP (test code = AGAP) 12.2 10.0-20.0 [facility] [employer] [id number] 02:20:00 Test Item Value Reference Range Interpretation Comments B/C Ratio (test code = B/C Ratio) 24 1 6-25 [facility] [id number] 02:20:00 Test Item Value Reference Range Interpretation Comments Globulin (test code = Globulin) 3.6 2.7-4.2 [facility] [id number] 02:20:00 Test Item Value Reference Range Interpretation Comments A/G Ratio (test code = A/G Ratio) 0.9 1 0.7-1.6 [facility]2022-07-25 02:20:00 Test Item Value Reference Range Interpretation Comments eGFR (test code = eGFR) 62 [facility] CenterCcwwlbqBWHJRLOQFQ6113-60-28 02:20:00 Test Item Value Reference Range Interpretation Comments WBC (test code = WBC) 8.6 3.7-10.4 [place] 778932-07-25 02:20:00 Test Item Value Reference Range Interpretation Comments RBC (test code = RBC) 3.58 4.20-5.40 [place] 778932-07-25 02:20:00 Test Item Value Reference Range Interpretation Comments Hgb (test code = Hgb) 8.8 12.0-16.0 [place] 778932-07-25 02:20:00 Test Item Value Reference Range Interpretation Comments Hct (test code = Hct) 27.1 36.0-48.0 [place] 778932-07-25 02:20:00 Test Item Value Reference Range Interpretation Comments MCV (test code = MCV) 75.6 80.0-98.0 [place] [address]-07-25 02:20:00 Test Item Value Reference Range Interpretation Comments MCH (test code = MCH) 24.5 pg 27.0-31.0 [place] 778932-07-25 02:20:00 Test Item Value Reference Range Interpretation Comments MCHC (test code = MCHC) 32.4 32.0-36.0 [place] 778932-07-25 02:20:00 Test Item Value Reference Range Interpretation Comments RDW (test code = RDW) 21.1 11.5-14.5 [place] [address]-07-25 02:20:00 Test Item Value Reference Range Interpretation Comments Platelet (test code = Platelet) 297 133-450 [place] 778932-07-25 02:20:00 Test Item Value Reference Range Interpretation Comments MPV (test code = MPV) 7.5 7.4-10.4 [place] 778932-07-25 02:20:00 Test Item Value Reference Range Interpretation Comments Segs (test code = Segs) 85.8 45.0-75.0 [facility] CenterWxjgnvgODEUBXPOSG5209-11-30 02:20:00 Test Item Value Reference Range Interpretation Comments Lymphocytes (test code = Lymphocytes) 8.5 20.0-40.0 [facility] CenterQpnbxnnTSSKNMAWEU7705-63-33 02:20:00 Test Item Value Reference Range Interpretation Comments Monocytes (test code = Monocytes) 5.0 2.0-12.0 [facility] CenterPvoopkcTHCJEQUDVS1387-90-18 02:20:00 Test Item Value Reference Range Interpretation Comments Eosinophils (test code = 0.3 See_Comment [A utomated message] The Eosinophils) system which ge nerated this result tra nsmitted reference range : <=4.0. The reference r hugo was not used to int erpret this result as normal/abnormal . [facility] CenterGphcndaVGWJUJRMCQ3480-14-38 02:20:00 Test Item Value Reference Range Interpretation Comments Basophils (test code = 0.4 See_Comment [Aut omated message] The Basophils) system which ge nerated this result tra nsmitted reference range : <=1.0. The reference r hugo was not used to int erpret this result as normal/abnormal . [facility] CenterHvkirmaBLKLKSDRWO9039-44-77 02:20:00 Test Item Value Reference Range Interpretation Comments Neutrophils # (test code = Neutrophils 7.4 1.5-8.1 #) [facility] CenterKnekwwySLTTSWUOYM1122-70-57 02:20:00 Test Item Value Reference Range Interpretation Comments Lymphocytes # (test code = Lymphocytes 0.7 1.0-5.5 #) [facility] CenterIiytnnsCVBDZRPKZT2009-40-46 02:20:00 Test Item Value Reference Range Interpretation Comments Monocytes # (test code 0.4 See_Comment [Aut omated message] The = Monocytes #) system which generated this result tra nsmitted reference range : <=0.8. The reference r hugo was not used to int erpret this result as normal/abnormal . [facility] CenterDcijwflMSDUZJGGLF4625-38-44 02:20:00 Test Item Value Reference Range Interpretation Comments Microcyte (test code = 1+ *ABN*(06/12/22 Microcyte) 9:20 PM) [facility]villeCARD[facility] [id number] 02:20:00 Test Item Value Reference Range Interpretation Comments HS Troponin I (test code = HS Troponin 52 I) [place] 852652-07-25 02:20:00 Test Item Value Reference Range Interpretation Comments Glucose Lvl (test code = Glucose Lvl) 103 70-99 [place] 852652-07-25 02:20:00 Test Item Value Reference Range Interpretation Comments BUN (test code = BUN) 22 7-22 [place] 852652-07-25 02:20:00 Test Item Value Reference Range Interpretation Comments Creatinine Lvl (test code = Creatinine 0.90 0.50-1.40 Lvl) [place] 852652-07-25 02:20:00 Test Item Value Reference Range Interpretation Comments Sodium Lvl (test code = Sodium Lvl) 131 135-145 [place] 852652-07-25 02:20:00 Test Item Value Reference Range Interpretation Comments Potassium Lvl (test code = Potassium 4.2 3.5-5.1 Lvl) [place] 852652-07-25 02:20:00 Test Item Value Reference Range Interpretation Comments Chloride Lvl (test code = Chloride Lvl) 97 95-109 [place] 852652-07-25 02:20:00 Test Item Value Reference Range Interpretation Comments CO2 (test code = CO2) 26 24-32 [place] 852652-07-25 02:20:00 Test Item Value Reference Range Interpretation Comments Calcium Lvl (test code = Calcium Lvl) 8.7 8.5-10.5 [place] 852652-07-25 02:20:00 Test Item Value Reference Range Interpretation Comments Total Protein (test code = Total 7.0 6.4-8.4 Protein) [place] 852652-07-25 02:20:00 Test Item Value Reference Range Interpretation Comments Albumin Lvl (test code = Albumin Lvl) 3.4 3.5-5.0 [place] 852652-07-25 02:20:00 Test Item Value Reference Range Interpretation Comments ALT (test code = ALT) 18 See_Comment [Auto mated message] The system which ge nerated this result transmit lavon reference range : <=65. The reference range was not used to interpr et this result as dionne l/abnormal. [place] 852652-07-25 02:20:00 Test Item Value Reference Range Interpretation Comments AST (test code = AST) 27 See_Comment [Auto mated message] The system which ge nerated this result transmit lavon reference range : <=37. The reference range was not used to interpr et this result as dionne l/abnormal. [facility]2022-07-25 02:20:00 Test Item Value Reference Range Interpretation Comments Alk Phos (test code = Alk Phos) 57 39-136 [facility]2022-07-25 02:20:00 Test Item Value Reference Range Interpretation Comments Bili Total (test code = Bili Total) 1.0 0.2-1.3 [facility]2022-07-25 02:20:00 Test Item Value Reference Range Interpretation Comments AGAP (test code = AGAP) 12.2 10.0-20.0 [place] 852652-07-25 02:20:00 Test Item Value Reference Range Interpretation Comments B/C Ratio (test code = B/C Ratio) 24 1 6-25 [place] 852652-07-25 02:20:00 Test Item Value Reference Range Interpretation Comments Globulin (test code = Globulin) 3.6 2.7-4.2 [facility]2022-07-25 02:20:00 Test Item Value Reference Range Interpretation Comments A/G Ratio (test code = A/G Ratio) 0.9 1 0.7-1.6 [place] 852652-07-25 02:20:00 Test Item Value Reference Range Interpretation Comments eGFR (test code = eGFR) 62 [facility] CenterNabvxruTMTWROODOZ9185-12-99 02:20:00 Test Item Value Reference Range Interpretation Comments WBC (test code = WBC) 8.6 3.7-10.4 [place] 778932-07-25 02:20:00 Test Item Value Reference Range Interpretation Comments RBC (test code = RBC) 3.58 4.20-5.40 [place] [place] 778932-[place]-25 02:20:00 Test Item Value Reference Range Interpretation Comments Hgb (test code = Hgb) 8.8 12.0-16.0 [place] 778932-07-25 02:20:00 Test Item Value Reference Range Interpretation Comments Hct (test code = Hct) 27.1 36.0-48.0 [place] 778932-07-25 02:20:00 Test Item Value Reference Range Interpretation Comments MCV (test code = MCV) 75.6 80.0-98.0 [place] 778932-07-25 02:20:00 Test Item Value Reference Range Interpretation Comments MCH (test code = MCH) 24.5 pg 27.0-31.0 [facility]ktREDCJQUSLK9598[facility]-32 02:20:00 Test Item Value Reference Range Interpretation Comments MCHC (test code = MCHC) 32.4 32.0-36.0 [place] 778932-07-25 02:20:00 Test Item Value Reference Range Interpretation Comments RDW (test code = RDW) 21.1 11.5-14.5 [place] 778932-07-25 02:20:00 Test Item Value Reference Range Interpretation Comments Platelet (test code = Platelet) 297 133-450 [facility] CenterMrihumzNWKGBUWXNM0706-93-81 02:20:00 Test Item Value Reference Range Interpretation Comments MPV (test code = MPV) 7.5 7.4-10.4 [place] 778932-07-25 02:20:00 Test Item Value Reference Range Interpretation Comments Segs (test code = Segs) 85.8 45.0-75.0 [place] 778932-07-25 02:20:00 Test Item Value Reference Range Interpretation Comments Lymphocytes (test code = Lymphocytes) 8.5 20.0-40.0 [place] 778932-07-25 02:20:00 Test Item Value Reference Range Interpretation Comments Monocytes (test code = Monocytes) 5.0 2.0-12.0 [place] [address]-07-25 02:20:00 Test Item Value Reference Range Interpretation Comments Eosinophils (test code = 0.3 See_Comment [A utomated message] The Eosinophils) system which ge nerated this result tra nsmitted reference range : <=4.0. The reference r hugo was not used to int erpret this result as normal/abnormal . [place] 778932-07-25 02:20:00 Test Item Value Reference Range Interpretation Comments Basophils (test code = 0.4 See_Comment [Aut omated message] The Basophils) system which ge nerated this result tra nsmitted reference range : <=1.0. The reference r hugo was not used to int erpret this result as normal/abnormal . [facility] CenterCqrjttfMQEVHRAEXW1969-85-69 02:20:00 Test Item Value Reference Range Interpretation Comments Neutrophils # (test code = Neutrophils 7.4 1.5-8.1 #) [facility] CenterAbrdhgcABLLETZRFG6128-12-90 02:20:00 Test Item Value Reference Range Interpretation Comments Lymphocytes # (test code = Lymphocytes 0.7 1.0-5.5 #) [facility] CenterNrduknmYEYLOMARPM9873-67-02 02:20:00 Test Item Value Reference Range Interpretation Comments Monocytes # (test code 0.4 See_Comment [Aut omated message] The = Monocytes #) system which generated this result tra nsmitted reference range : <=0.8. The reference r hugo was not used to int erpret this result as normal/abnormal . [facility] CenterIlcwwxdOQUSXUQJDL8995-42-10 02:20:00 Test Item Value Reference Range Interpretation Comments Microcyte (test code = 1+ *ABN*(06/12/22 Microcyte) 9:20 PM) [facility] [id number] 02:20:00 Test Item Value Reference Range Interpretation Comments HS Troponin I (test code = HS Troponin 52 I) [facility]2022-07-25 02:20:00 Test Item Value Reference Range Interpretation Comments Glucose Lvl (test code = Glucose Lvl) 103 70-99 [facility]2022-07-25 02:20:00 Test Item Value Reference Range Interpretation Comments BUN (test code = BUN) 22 - [facility]2022-07-25 02:20:00 Test Item Value Reference Range Interpretation Comments Creatinine Lvl (test code = Creatinine 0.90 0.50-1.40 Lvl) [facility]2022-07-25 02:20:00 Test Item Value Reference Range Interpretation Comments Sodium Lvl (test code = Sodium Lvl) 131 135-145 [facility]2022-07-25 02:20:00 Test Item Value Reference Range Interpretation Comments Potassium Lvl (test code = Potassium 4.2 3.5-5.1 Lvl) [facility]2022-07-25 02:20:00 Test Item Value Reference Range Interpretation Comments Chloride Lvl (test code = Chloride Lvl) 97 95-109 [place] 852652-07-25 02:20:00 Test Item Value Reference Range Interpretation Comments CO2 (test code = CO2) 26 24-32 [place] 852652-07-25 02:20:00 Test Item Value Reference Range Interpretation Comments Calcium Lvl (test code = Calcium Lvl) 8.7 8.5-10.5 [place] 852652-07-25 02:20:00 Test Item Value Reference Range Interpretation Comments Total Protein (test code = Total 7.0 6.4-8.4 Protein) [place] 852652-07-25 02:20:00 Test Item Value Reference Range Interpretation Comments Albumin Lvl (test code = Albumin Lvl) 3.4 3.5-5.0 [place] 852652-07-25 02:20:00 Test Item Value Reference Range Interpretation Comments ALT (test code = ALT) 18 See_Comment [Auto mated message] The system which ge nerated this result transmit lavon reference range : <=65. The reference range was not used to interpr et this result as dionne l/abnormal. [place] 852652-07-25 02:20:00 Test Item Value Reference Range Interpretation Comments AST (test code = AST) 27 See_Comment [Auto mated message] The system which ge nerated this result transmit lavon reference range : <=37. The reference range was not used to interpr et this result as dionne l/abnormal. [place] 852652-07-25 02:20:00 Test Item Value Reference Range Interpretation Comments Alk Phos (test code = Alk Phos) 57 39-136 [place] 852652-07-25 02:20:00 Test Item Value Reference Range Interpretation Comments Bili Total (test code = Bili Total) 1.0 0.2-1.3 [place] 852652-07-25 02:20:00 Test Item Value Reference Range Interpretation Comments AGAP (test code = AGAP) 12.2 10.0-20.0 [place] 56[address]-07-25 02:20:00 Test Item Value Reference Range Interpretation Comments B/C Ratio (test code = B/C Ratio) 24 1 6-25 [facility] [id number] 02:20:00 Test Item Value Reference Range Interpretation Comments Globulin (test code = Globulin) 3.6 2.7-4.2 [facility] [id number] 02:20:00 Test Item Value Reference Range Interpretation Comments A/G Ratio (test code = A/G Ratio) 0.9 1 0.7-1.6 [facility] [id number] 02:20:00 Test Item Value Reference Range Interpretation Comments eGFR (test code = eGFR) 62 [facility] CenterGxuxgsuTPJZKOSTCC6924-62-38 02:20:00 Test Item Value Reference Range Interpretation Comments WBC (test code = WBC) 8.6 3.7-10.4 [place] 778932-07-25 02:20:00 Test Item Value Reference Range Interpretation Comments RBC (test code = RBC) 3.58 4.20-5.40 [place] 778932-07-25 02:20:00 Test Item Value Reference Range Interpretation Comments Hgb (test code = Hgb) 8.8 12.0-16.0 [place] 778932-07-25 02:20:00 Test Item Value Reference Range Interpretation Comments Hct (test code = Hct) 27.1 36.0-48.0 [place] 778932-07-25 02:20:00 Test Item Value Reference Range Interpretation Comments MCV (test code = MCV) 75.6 80.0-98.0 [facility] CenterWvhsplfMAVEVJJFXT3532-36-67 02:20:00 Test Item Value Reference Range Interpretation Comments MCH (test code = MCH) 24.5 pg 27.0-31.0 [facility] CenterKihlfqzWDCAKWJYGZ4695-18-68 02:20:00 Test Item Value Reference Range Interpretation Comments MCHC (test code = MCHC) 32.4 32.0-36.0 [place] 778932-07-25 02:20:00 Test Item Value Reference Range Interpretation Comments RDW (test code = RDW) 21.1 11.5-14.5 [place] 778932-07-25 02:20:00 Test Item Value Reference Range Interpretation Comments Platelet (test code = Platelet) 297 133-450 [facility] CenterLmuwxzwQIHGMAUCFC9420-63-67 02:20:00 Test Item Value Reference Range Interpretation Comments MPV (test code = MPV) 7.5 7.4-10.4 [place] 778932-07-25 02:20:00 Test Item Value Reference Range Interpretation Comments Segs (test code = Segs) 85.8 45.0-75.0 [facility] CenterYxovrouTRXTGVTHJB9611-81-26 02:20:00 Test Item Value Reference Range Interpretation Comments Lymphocytes (test code = Lymphocytes) 8.5 20.0-40.0 [place] 778932-07-25 02:20:00 Test Item Value Reference Range Interpretation Comments Monocytes (test code = Monocytes) 5.0 2.0-12.0 [place] 778932-07-25 02:20:00 Test Item Value Reference Range Interpretation Comments Eosinophils (test code = 0.3 See_Comment [A utomated message] The Eosinophils) system which ge nerated this result tra nsmitted reference range : <=4.0. The reference r hugo was not used to int erpret this result as normal/abnormal . [place] 778932-07-25 02:20:00 Test Item Value Reference Range Interpretation Comments Basophils (test code = 0.4 See_Comment [Aut omated message] The Basophils) system which ge nerated this result tra nsmitted reference range : <=1.0. The reference r hugo was not used to int erpret this result as normal/abnormal . [facility] CenterSnhipgzCMIAUCLAQJ6453-38-81 02:20:00 Test Item Value Reference Range Interpretation Comments Neutrophils # (test code = Neutrophils 7.4 1.5-8.1 #) [place] 778932-07-25 02:20:00 Test Item Value Reference Range Interpretation Comments Lymphocytes # (test code = Lymphocytes 0.7 1.0-5.5 #) [place] 125[address]-07-25 02:20:00 Test Item Value Reference Range Interpretation Comments Monocytes # (test code 0.4 See_Comment [Aut omated message] The = Monocytes #) system which generated this result tra nsmitted reference range : <=0.8. The reference r hugo was not used to int erpret this result as normal/abnormal . [facility] CenterFmrkrsrVKBLNHJZLF8548-40-05 02:20:00 Test Item Value Reference Range Interpretation Comments Microcyte (test code = 1+ *ABN*(06/12/22 Microcyte) 9:20 PM) [facility] [id number] 02:20:00 Test Item Value Reference Range Interpretation Comments HS Troponin I (test code = HS Troponin 52 I) [facility] [id number] 02:20:00 Test Item Value Reference Range Interpretation Comments Glucose Lvl (test code = Glucose Lvl) 103 70-99 [facility] [id number] 02:20:00 Test Item Value Reference Range Interpretation Comments BUN (test code = BUN) 22 7-22 [facility] [id number] 02:20:00 Test Item Value Reference Range Interpretation Comments Creatinine Lvl (test code = Creatinine 0.90 0.50-1.40 Lvl) [facility] [id number] 02:20:00 Test Item Value Reference Range Interpretation Comments Sodium Lvl (test code = Sodium Lvl) 131 135-145 [facility] [id number] 02:20:00 Test Item Value Reference Range Interpretation Comments Potassium Lvl (test code = Potassium 4.2 3.5-5.1 Lvl) [facility] [id number] 02:20:00 Test Item Value Reference Range Interpretation Comments Chloride Lvl (test code = Chloride Lvl) 97 95-109 [facility] [id number] 02:20:00 Test Item Value Reference Range Interpretation Comments CO2 (test code = CO2) 26 24-32 [facility]2022-07-25 02:20:00 Test Item Value Reference Range Interpretation Comments Calcium Lvl (test code = Calcium Lvl) 8.7 8.5-10.5 [facility]2022-07-25 02:20:00 Test Item Value Reference Range Interpretation Comments Total Protein (test code = Total 7.0 6.4-8.4 Protein) [facility]2022-07-25 02:20:00 Test Item Value Reference Range Interpretation Comments Albumin Lvl (test code = Albumin Lvl) 3.4 3.5-5.0 [facility]2022-07-25 02:20:00 Test Item Value Reference Range Interpretation Comments ALT (test code = ALT) 18 See_Comment [Auto mated message] The system which ge nerated this result transmit lavon reference range : <=65. The reference range was not used to interpr et this result as dionne l/abnormal. [facility]2022-07-25 02:20:00 Test Item Value Reference Range Interpretation Comments AST (test code = AST) 27 See_Comment [Auto mated message] The system which ge nerated this result transmit lavon reference range : <=37. The reference range was not used to interpr et this result as dionne l/abnormal. [place] 852652-07-25 02:20:00 Test Item Value Reference Range Interpretation Comments Alk Phos (test code = Alk Phos) 57 39-136 [place] 852652-07-25 02:20:00 Test Item Value Reference Range Interpretation Comments Bili Total (test code = Bili Total) 1.0 0.2-1.3 [place] 852652-07-25 02:20:00 Test Item Value Reference Range Interpretation Comments AGAP (test code = AGAP) 12.2 10.0-20.0 [place] 852652-07-25 02:20:00 Test Item Value Reference Range Interpretation Comments B/C Ratio (test code = B/C Ratio) 24 1 6-25 [place] 852652-07-25 02:20:00 Test Item Value Reference Range Interpretation Comments Globulin (test code = Globulin) 3.6 2.7-4.2 [place] 852652-07-25 02:20:00 Test Item Value Reference Range Interpretation Comments A/G Ratio (test code = A/G Ratio) 0.9 1 0.7-1.6 [place] 852652-07-25 02:20:00 Test Item Value Reference Range Interpretation Comments eGFR (test code = eGFR) 62 [place] 778932-07-25 02:20:00 Test Item Value Reference Range Interpretation Comments WBC (test code = WBC) 8.6 3.7-10.4 [place] 778932-07-25 02:20:00 Test Item Value Reference Range Interpretation Comments RBC (test code = RBC) 3.58 4.20-5.40 [place] 778932-07-25 02:20:00 Test Item Value Reference Range Interpretation Comments Hgb (test code = Hgb) 8.8 12.0-16.0 [place] 778932-07-25 02:20:00 Test Item Value Reference Range Interpretation Comments Hct (test code = Hct) 27.1 36.0-48.0 [place] 778932-07-25 02:20:00 Test Item Value Reference Range Interpretation Comments MCV (test code = MCV) 75.6 80.0-98.0 [place] 778932-07-25 02:20:00 Test Item Value Reference Range Interpretation Comments MCH (test code = MCH) 24.5 pg 27.0-31.0 [place] 778932-07-25 02:20:00 Test Item Value Reference Range Interpretation Comments MCHC (test code = MCHC) 32.4 32.0-36.0 [place] 778932-07-25 02:20:00 Test Item Value Reference Range Interpretation Comments RDW (test code = RDW) 21.1 11.5-14.5 [place] 778932-07-25 02:20:00 Test Item Value Reference Range Interpretation Comments Platelet (test code = Platelet) 297 133-450 [facility] CenterWavrjoePKXSDLXSPL5802-44-74 02:20:00 Test Item Value Reference Range Interpretation Comments MPV (test code = MPV) 7.5 7.4-10.4 [place] 778932-07-25 02:20:00 Test Item Value Reference Range Interpretation Comments Segs (test code = Segs) 85.8 45.0-75.0 [place] 778932-07-25 02:20:00 Test Item Value Reference Range Interpretation Comments Lymphocytes (test code = Lymphocytes) 8.5 20.0-40.0 [place] 778932-07-25 02:20:00 Test Item Value Reference Range Interpretation Comments Monocytes (test code = Monocytes) 5.0 2.0-12.0 [place] 12581-07-25 02:20:00 Test Item Value Reference Range Interpretation Comments Eosinophils (test code = 0.3 See_Comment [A utomated message] The Eosinophils) system which ge nerated this result tra nsmitted reference range : <=4.0. The reference r hugo was not used to int erpret this result as normal/abnormal . [place] 778932-07-25 02:20:00 Test Item Value Reference Range Interpretation Comments Basophils (test code = 0.4 See_Comment [Aut omated message] The Basophils) system which ge nerated this result tra nsmitted reference range : <=1.0. The reference r hugo was not used to int erpret this result as normal/abnormal . [facility] [id number] 02:20:00 Test Item Value Reference Range Interpretation Comments Neutrophils # (test code = Neutrophils 7.4 1.5-8.1 #) [facility]CHTR1764-92-12 02:20:00 Test Item Value Reference Range Interpretation Comments Lymphocytes # (test code = Lymphocytes 0.7 1.0-5.5 #) [facility] [id number] 02:20:00 Test Item Value Reference Range Interpretation Comments Monocytes # (test code 0.4 See_Comment [Aut omated message] The = Monocytes #) system which generated this result tra nsmitted reference range : <=0.8. The reference r hugo was not used to int erpret this result as normal/abnormal . [facility] CenterWvuqzshFXNECRTENY7707-11-77 02:20:00 Test Item Value Reference Range Interpretation Comments Microcyte (test code = 1+ *ABN*(06/12/22 Microcyte) 9:20 PM) [facility] [id number] 02:20:00 Test Item Value Reference Range Interpretation Comments HS Troponin I (test code = HS Troponin 52 I) [facility] [id number] 02:20:00 Test Item Value Reference Range Interpretation Comments Glucose Lvl (test code = Glucose Lvl) 103 70-99 [facility] [id number] 02:20:00 Test Item Value Reference Range Interpretation Comments BUN (test code = BUN) 22 7-22 [facility] [id number] 02:20:00 Test Item Value Reference Range Interpretation Comments Creatinine Lvl (test code = Creatinine 0.90 0.50-1.40 Lvl) [facility]2022-07-25 02:20:00 Test Item Value Reference Range Interpretation Comments Sodium Lvl (test code = Sodium Lvl) 131 135-145 [facility] [id number] 02:20:00 Test Item Value Reference Range Interpretation Comments Potassium Lvl (test code = Potassium 4.2 3.5-5.1 Lvl) [facility] TexasMelodigramEMILY [place] [id number] 02:20:00 Test Item Value Reference Range Interpretation Comments Chloride Lvl (test code = Chloride Lvl) 97 95-109 [place] 852652-07-25 02:20:00 Test Item Value Reference Range Interpretation Comments CO2 (test code = CO2) 26 24-32 [place] 852652-07-25 02:20:00 Test Item Value Reference Range Interpretation Comments Calcium Lvl (test code = Calcium Lvl) 8.7 8.5-10.5 [place] 852652-07-25 02:20:00 Test Item Value Reference Range Interpretation Comments Total Protein (test code = Total 7.0 6.4-8.4 Protein) [place] 852652-07-25 02:20:00 Test Item Value Reference Range Interpretation Comments Albumin Lvl (test code = Albumin Lvl) 3.4 3.5-5.0 [place] 852652-07-25 02:20:00 Test Item Value Reference Range Interpretation Comments ALT (test code = ALT) 18 See_Comment [Auto mated message] The system which ge nerated this result transmit lavon reference range : <=65. The reference range was not used to interpr et this result as dionne l/abnormal. [facility] [id number] 02:20:00 Test Item Value Reference Range Interpretation Comments AST (test code = AST) 27 See_Comment [Auto mated message] The system which ge nerated this result transmit lavon reference range : <=37. The reference range was not used to interpr et this result as dionne l/abnormal. [facility] [id number] 02:20:00 Test Item Value Reference Range Interpretation Comments Alk Phos (test code = Alk Phos) 57 39-136 [facility] [id number] 02:20:00 Test Item Value Reference Range Interpretation Comments Bili Total (test code = Bili Total) 1.0 0.2-1.3 [place] 852652-07-25 02:20:00 Test Item Value Reference Range Interpretation Comments AGAP (test code = AGAP) 12.2 10.0-20.0 [facility] [id number] 02:20:00 Test Item Value Reference Range Interpretation Comments B/C Ratio (test code = B/C Ratio) 24 1 6-25 [facility]2022-07-25 02:20:00 Test Item Value Reference Range Interpretation Comments Globulin (test code = Globulin) 3.6 2.7-4.2 [place] 852652-07-25 02:20:00 Test Item Value Reference Range Interpretation Comments A/G Ratio (test code = A/G Ratio) 0.9 1 0.7-1.6 [facility]2022-07-25 02:20:00 Test Item Value Reference Range Interpretation Comments eGFR (test code = eGFR) 62 [facility] CenterZvvhbiqTBAOZBZONW5240-35-25 02:20:00 Test Item Value Reference Range Interpretation Comments WBC (test code = WBC) 8.6 3.7-10.4 [place] 778932-07-25 02:20:00 Test Item Value Reference Range Interpretation Comments RBC (test code = RBC) 3.58 4.20-5.40 [place] 778932-07-25 02:20:00 Test Item Value Reference Range Interpretation Comments Hgb (test code = Hgb) 8.8 12.0-16.0 [place] 778932-07-25 02:20:00 Test Item Value Reference Range Interpretation Comments Hct (test code = Hct) 27.1 36.0-48.0 [place] 778932-07-25 02:20:00 Test Item Value Reference Range Interpretation Comments MCV (test code = MCV) 75.6 80.0-98.0 [place] 778932-07-25 02:20:00 Test Item Value Reference Range Interpretation Comments MCH (test code = MCH) 24.5 pg 27.0-31.0 [place] 778932-07-25 02:20:00 Test Item Value Reference Range Interpretation Comments MCHC (test code = MCHC) 32.4 32.0-36.0 [place] 778932-07-25 02:20:00 Test Item Value Reference Range Interpretation Comments RDW (test code = RDW) 21.1 11.5-14.5 [place] 778932-07-25 02:20:00 Test Item Value Reference Range Interpretation Comments Platelet (test code = Platelet) 297 133-450 [facility] CenterKezzkbjUVUFBVDNPO7410-92-57 02:20:00 Test Item Value Reference Range Interpretation Comments MPV (test code = MPV) 7.5 7.4-10.4 [facility] CenterXwspkgvYAKOUNAIVT9193-25-52 02:20:00 Test Item Value Reference Range Interpretation Comments Segs (test code = Segs) 85.8 45.0-75.0 [facility] CenterImgzgfzPXZISSHOVT6877-78-06 02:20:00 Test Item Value Reference Range Interpretation Comments Lymphocytes (test code = Lymphocytes) 8.5 20.0-40.0 [place] 778932-07-25 02:20:00 Test Item Value Reference Range Interpretation Comments Monocytes (test code = Monocytes) 5.0 2.0-12.0 [facility] CenterCanaspoIUMVUCGQGY1424-06-89 02:20:00 Test Item Value Reference Range Interpretation Comments Eosinophils (test code = 0.3 See_Comment [A utomated message] The Eosinophils) system which ge nerated this result tra nsmitted reference range : <=4.0. The reference r hugo was not used to int erpret this result as normal/abnormal . [facility] CenterXjuiverUTZIHQAYMW9399-70-28 02:20:00 Test Item Value Reference Range Interpretation Comments Basophils (test code = 0.4 See_Comment [Aut omated message] The Basophils) system which ge nerated this result tra nsmitted reference range : <=1.0. The reference r hugo was not used to int erpret this result as normal/abnormal . [facility] CenterGzpytyiHVAKLUJZHA6852-61-78 02:20:00 Test Item Value Reference Range Interpretation Comments Neutrophils # (test code = Neutrophils 7.4 1.5-8.1 #) [facility] CenterFsktuwpHVUWHQZEDP5741-50-96 02:20:00 Test Item Value Reference Range Interpretation Comments Lymphocytes # (test code = Lymphocytes 0.7 1.0-5.5 #) [place] 778932-07-25 02:20:00 Test Item Value Reference Range Interpretation Comments Monocytes # (test code 0.4 See_Comment [Aut omated message] The = Monocytes #) system which generated this result tra nsmitted reference range : <=0.8. The reference r hugo was not used to int erpret this result as normal/abnormal . [place] 125[address]-07-25 02:20:00 Test Item Value Reference Range Interpretation Comments Microcyte (test code = 1+ *ABN*(06/12/22 Microcyte) 9:20 PM) [facility] [id number] 02:20:00 Test Item Value Reference Range Interpretation Comments HS Troponin I (test code = HS Troponin 52 I) [facility]2022-07-25 02:20:00 Test Item Value Reference Range Interpretation Comments Glucose Lvl (test code = Glucose Lvl) 103 70-99 [facility]2022-07-25 02:20:00 Test Item Value Reference Range Interpretation Comments BUN (test code = BUN) 22 06-10 [facility]2022-07-25 02:20:00 Test Item Value Reference Range Interpretation Comments Creatinine Lvl (test code = Creatinine 0.90 0.50-1.40 Lvl) [facility]2022-07-25 02:20:00 Test Item Value Reference Range Interpretation Comments Sodium Lvl (test code = Sodium Lvl) 131 135-145 [facility] [facility]:20:00 Test Item Value Reference Range Interpretation Comments Potassium Lvl (test code = Potassium 4.2 3.5-5.1 Lvl) [facility]2022-07-25 02:20:00 Test Item Value Reference Range Interpretation Comments Chloride Lvl (test code = Chloride Lvl) 97 95-109 [facility]2022-07-25 02:20:00 Test Item Value Reference Range Interpretation Comments CO2 (test code = CO2) 26 24-32 [facility]2022-07-25 02:20:00 Test Item Value Reference Range Interpretation Comments Calcium Lvl (test code = Calcium Lvl) 8.7 8.5-10.5 [facility]2022-07-25 02:20:00 Test Item Value Reference Range Interpretation Comments Total Protein (test code = Total 7.0 6.4-8.4 Protein) [facility]2022-07-25 02:20:00 Test Item Value Reference Range Interpretation Comments Albumin Lvl (test code = Albumin Lvl) 3.4 3.5-5.0 [facility]2022-07-25 02:20:00 Test Item Value Reference Range Interpretation Comments ALT (test code = ALT) 18 See_Comment [Auto mated message] The system which ge nerated this result transmit lavon reference range : <=65. The reference range was not used to interpr et this result as dionne l/abnormal. [facility] [id number] 02:20:00 Test Item Value Reference Range Interpretation Comments AST (test code = AST) 27 See_Comment [Auto mated message] The system which ge nerated this result transmit lavon reference range : <=37. The reference range was not used to interpr et this result as dionne l/abnormal. [facility] [id number] 02:20:00 Test Item Value Reference Range Interpretation Comments Alk Phos (test code = Alk Phos) 57 39-136 [facility] [id number] 02:20:00 Test Item Value Reference Range Interpretation Comments Bili Total (test code = Bili Total) 1.0 0.2-1.3 [facility] [id number] 02:20:00 Test Item Value Reference Range Interpretation Comments AGAP (test code = AGAP) 12.2 10.0-20.0 [facility] [id number] 02:20:00 Test Item Value Reference Range Interpretation Comments B/C Ratio (test code = B/C Ratio) 24 1 6-25 [facility] [id number] 02:20:00 Test Item Value Reference Range Interpretation Comments Globulin (test code = Globulin) 3.6 2.7-4.2 [facility] [id number] 02:20:00 Test Item Value Reference Range Interpretation Comments A/G Ratio (test code = A/G Ratio) 0.9 1 0.7-1.6 [facility] [id number] 02:20:00 Test Item Value Reference Range Interpretation Comments eGFR (test code = eGFR) 62 [place] 778932-07-25 02:20:00 Test Item Value Reference Range Interpretation Comments WBC (test code = WBC) 8.6 3.7-10.4 [place] 778932-07-25 02:20:00 Test Item Value Reference Range Interpretation Comments RBC (test code = RBC) 3.58 4.20-5.40 [place] 778932-07-25 02:20:00 Test Item Value Reference Range Interpretation Comments Hgb (test code = Hgb) 8.8 12.0-16.0 [place] 778932-07-25 02:20:00 Test Item Value Reference Range Interpretation Comments Hct (test code = Hct) 27.1 36.0-48.0 [place] 778932-07-25 02:20:00 Test Item Value Reference Range Interpretation Comments MCV (test code = MCV) 75.6 80.0-98.0 [place] 778932-07-25 02:20:00 Test Item Value Reference Range Interpretation Comments MCH (test code = MCH) 24.5 pg 27.0-31.0 [facility]kp[facility]GUYM0282[facility] 02:20:00 Test Item Value Reference Range Interpretation Comments MCHC (test code = MCHC) 32.4 32.0-36.0 [place] 778932-07-25 02:20:00 Test Item Value Reference Range Interpretation Comments RDW (test code = RDW) 21.1 11.5-14.5 [place] 778932-07-25 02:20:00 Test Item Value Reference Range Interpretation Comments Platelet (test code = Platelet) 297 133-450 [place] 778932-07-25 02:20:00 Test Item Value Reference Range Interpretation Comments MPV (test code = MPV) 7.5 7.4-10.4 [place] 778932-07-25 02:20:00 Test Item Value Reference Range Interpretation Comments Segs (test code = Segs) 85.8 45.0-75.0 [place] 778932-07-25 02:20:00 Test Item Value Reference Range Interpretation Comments Lymphocytes (test code = Lymphocytes) 8.5 20.0-40.0 [place] [address]-07-25 02:20:00 Test Item Value Reference Range Interpretation Comments Monocytes (test code = Monocytes) 5.0 2.0-12.0 [place] [address]-07-25 02:20:00 Test Item Value Reference Range Interpretation Comments Eosinophils (test code = 0.3 See_Comment [A utomated message] The Eosinophils) system which ge nerated this result tra nsmitted reference range : <=4.0. The reference r hugo was not used to int erpret this result as normal/abnormal . [id number] 02:20:00 Test Item Value Reference Range Interpretation Comments Basophils (test code = 0.4 See_Comment [Aut omated message] The Basophils) system which ge nerated this result tra nsmitted reference range : <=1.0. The reference r hugo was not used to int erpret this result as normal/abnormal . [facility]ine[facility]CTPREDIBO4581-77-03 02:20:00 Test Item Value Reference Range Interpretation Comments Neutrophils # (test code = Neutrophils 7.4 1.5-8.1 #) [facility]DjjmxkfMSIOFIGEYN0523-35-60 02:20:00 Test Item Value Reference Range Interpretation Comments Lymphocytes # (test code = Lymphocytes 0.7 1.0-5.5 #) [facility] CenterSrqbbizTMTQJDBUIJ3195-09-78 02:20:00 Test Item Value Reference Range Interpretation Comments Monocytes # (test code 0.4 See_Comment [Aut omated message] The = Monocytes #) system which generated this result tra nsmitted reference range : <=0.8. The reference r hugo was not used to int erpret this result as normal/abnormal . [facility] H[id number] 02:20:00 Test Item Value Reference Range Interpretation Comments Microcyte (test code = 1+ *ABN*(06/12/22 Microcyte) 9:20 PM) [facility] [id number] 02:20:00 Test Item Value Reference Range Interpretation Comments HS Troponin I (test code = HS Troponin 52 I) [facility] [id number] 02:20:00 Test Item Value Reference Range Interpretation Comments Glucose Lvl (test code = Glucose Lvl) 103 70-99 [facility] [id number] 02:20:00 Test Item Value Reference Range Interpretation Comments BUN (test code = BUN) 22 06-10 [facility] [id number] 02:20:00 Test Item Value Reference Range Interpretation Comments Creatinine Lvl (test code = Creatinine 0.90 0.50-1.40 Lvl) [facility] [id number] 02:20:00 Test Item Value Reference Range Interpretation Comments Sodium Lvl (test code = Sodium Lvl) 131 135-145 [place] 852652-07-25 02:20:00 Test Item Value Reference Range Interpretation Comments Potassium Lvl (test code = Potassium 4.2 3.5-5.1 Lvl) [place] 852652-07-25 02:20:00 Test Item Value Reference Range Interpretation Comments Chloride Lvl (test code = Chloride Lvl) 97 95-109 [place] 852652-07-25 02:20:00 Test Item Value Reference Range Interpretation Comments CO2 (test code = CO2) 26 24-32 [place] 852652-07-25 02:20:00 Test Item Value Reference Range Interpretation Comments Calcium Lvl (test code = Calcium Lvl) 8.7 8.5-10.5 [place] 852652-07-25 02:20:00 Test Item Value Reference Range Interpretation Comments Total Protein (test code = Total 7.0 6.4-8.4 Protein) [place] 852652-07-25 02:20:00 Test Item Value Reference Range Interpretation Comments Albumin Lvl (test code = Albumin Lvl) 3.4 3.5-5.0 [place] 852652-07-25 02:20:00 Test Item Value Reference Range Interpretation Comments ALT (test code = ALT) 18 See_Comment [Auto mated message] The system which ge nerated this result transmit lavon reference range : <=65. The reference range was not used to interpr et this result as dionne l/abnormal. [place] 852652-07-25 02:20:00 Test Item Value Reference Range Interpretation Comments AST (test code = AST) 27 See_Comment [Auto mated message] The system which ge nerated this result transmit lavon reference range : <=37. The reference range was not used to interpr et this result as dionne l/abnormal. [place] 852652-07-25 02:20:00 Test Item Value Reference Range Interpretation Comments Alk Phos (test code = Alk Phos) 57 39-136 [place] 852652-07-25 02:20:00 Test Item Value Reference Range Interpretation Comments Bili Total (test code = Bili Total) 1.0 0.2-1.3 [place] 852652-07-25 02:20:00 Test Item Value Reference Range Interpretation Comments AGAP (test code = AGAP) 12.2 10.0-20.0 [facility]2022-07-25 02:20:00 Test Item Value Reference Range Interpretation Comments B/C Ratio (test code = B/C Ratio) 24 1 6-25 [place] 852652-07-25 02:20:00 Test Item Value Reference Range Interpretation Comments Globulin (test code = Globulin) 3.6 2.7-4.2 [facility]2022-07-25 02:20:00 Test Item Value Reference Range Interpretation Comments A/G Ratio (test code = A/G Ratio) 0.9 1 0.7-1.6 [place] 852652-07-25 02:20:00 Test Item Value Reference Range Interpretation Comments eGFR (test code = eGFR) 62 [facility] CenterEhhzsrlFCSDSKTPEN0333-59-33 02:20:00 Test Item Value Reference Range Interpretation Comments WBC (test code = WBC) 8.6 3.7-10.4 [facility] CenterRnpcevsXFHLTIOMSV9584-73-48 02:20:00 Test Item Value Reference Range Interpretation Comments RBC (test code = RBC) 3.58 4.20-5.40 [place] 778932-07-25 02:20:00 Test Item Value Reference Range Interpretation Comments Hgb (test code = Hgb) 8.8 12.0-16.0 [place] 778932-07-25 02:20:00 Test Item Value Reference Range Interpretation Comments Hct (test code = Hct) 27.1 36.0-48.0 [place] 778932-07-25 02:20:00 Test Item Value Reference Range Interpretation Comments MCV (test code = MCV) 75.6 80.0-98.0 [place] 778932-07-25 02:20:00 Test Item Value Reference Range Interpretation Comments MCH (test code = MCH) 24.5 pg 27.0-31.0 [place] 778932-07-25 02:20:00 Test Item Value Reference Range Interpretation Comments MCHC (test code = MCHC) 32.4 32.0-36.0 [place] 778932-07-25 02:20:00 Test Item Value Reference Range Interpretation Comments RDW (test code = RDW) 21.1 11.5-14.5 [place] 778932-07-25 02:20:00 Test Item Value Reference Range Interpretation Comments Platelet (test code = Platelet) 297 133-450 [place] 778932-07-25 02:20:00 Test Item Value Reference Range Interpretation Comments MPV (test code = MPV) 7.5 7.4-10.4 [place] 778932-07-25 02:20:00 Test Item Value Reference Range Interpretation Comments Segs (test code = Segs) 85.8 45.0-75.0 [place] 778932-07-25 02:20:00 Test Item Value Reference Range Interpretation Comments Lymphocytes (test code = Lymphocytes) 8.5 20.0-40.0 [place] 778932-07-25 02:20:00 Test Item Value Reference Range Interpretation Comments Monocytes (test code = Monocytes) 5.0 2.0-12.0 [place] 778932-07-25 02:20:00 Test Item Value Reference Range Interpretation Comments Eosinophils (test code = 0.3 See_Comment [A utomated message] The Eosinophils) system which ge nerated this result tra nsmitted reference range : <=4.0. The reference r hugo was not used to int erpret this result as normal/abnormal . [place] 778932-07-25 02:20:00 Test Item Value Reference Range Interpretation Comments Basophils (test code = 0.4 See_Comment [Aut omated message] The Basophils) system which ge nerated this result tra nsmitted reference range : <=1.0. The reference r hugo was not used to int erpret this result as normal/abnormal . [place] 778932-07-25 02:20:00 Test Item Value Reference Range Interpretation Comments Neutrophils # (test code = Neutrophils 7.4 1.5-8.1 #) [place] [address]-07-25 02:20:00 Test Item Value Reference Range Interpretation Comments Lymphocytes # (test code = Lymphocytes 0.7 1.0-5.5 #) [place] 778932-07-25 02:20:00 Test Item Value Reference Range Interpretation Comments Monocytes # (test code 0.4 See_Comment [Aut omated message] The = Monocytes #) system which generated this result tra nsmitted reference range : <=0.8. The reference r hugo was not used to int erpret this result as normal/abnormal . [id number] 02:20:00 Test Item Value Reference Range Interpretation Comments Microcyte (test code = 1+ *ABN*(06/12/22 Microcyte) 9:20 PM) [facility] [id number] 02:20:00 Test Item Value Reference Range Interpretation Comments HS Troponin I (test code = HS Troponin 52 I) [facility] [id number] 02:20:00 Test Item Value Reference Range Interpretation Comments Glucose Lvl (test code = Glucose Lvl) 103 70-99 [facility]2022-07-25 02:20:00 Test Item Value Reference Range Interpretation Comments BUN (test code = BUN) 22 - [facility]2022-07-25 02:20:00 Test Item Value Reference Range Interpretation Comments Creatinine Lvl (test code = Creatinine 0.90 0.50-1.40 Lvl) [facility]2022-07-25 02:20:00 Test Item Value Reference Range Interpretation Comments Sodium Lvl (test code = Sodium Lvl) 131 135-145 [facility]2022-07-25 02:20:00 Test Item Value Reference Range Interpretation Comments Potassium Lvl (test code = Potassium 4.2 3.5-5.1 Lvl) [facility]2022-07-25 02:20:00 Test Item Value Reference Range Interpretation Comments Chloride Lvl (test code = Chloride Lvl) 97 95-109 [facility]2022-07-25 02:20:00 Test Item Value Reference Range Interpretation Comments CO2 (test code = CO2) 26 24-32 [facility]2022-07-25 02:20:00 Test Item Value Reference Range Interpretation Comments Calcium Lvl (test code = Calcium Lvl) 8.7 8.5-10.5 [place] 852652-07-25 02:20:00 Test Item Value Reference Range Interpretation Comments Total Protein (test code = Total 7.0 6.4-8.4 Protein) [facility]2022-07-25 02:20:00 Test Item Value Reference Range Interpretation Comments Albumin Lvl (test code = Albumin Lvl) 3.4 3.5-5.0 [facility] [id number] 02:20:00 Test Item Value Reference Range Interpretation Comments ALT (test code = ALT) 18 See_Comment [Auto mated message] The system which ge nerated this result transmit lavon reference range : <=65. The reference range was not used to interpr et this result as dionne l/abnormal. [facility] [id number] 02:20:00 Test Item Value Reference Range Interpretation Comments AST (test code = AST) 27 See_Comment [Auto mated message] The system which ge nerated this result transmit lavon reference range : <=37. The reference range was not used to interpr et this result as dionne l/abnormal. [facility] [id number] 02:20:00 Test Item Value Reference Range Interpretation Comments Alk Phos (test code = Alk Phos) 57 39-136 [facility] [id number] 02:20:00 Test Item Value Reference Range Interpretation Comments Bili Total (test code = Bili Total) 1.0 0.2-1.3 [facility] [id number] 02:20:00 Test Item Value Reference Range Interpretation Comments AGAP (test code = AGAP) 12.2 10.0-20.0 [facility] [id number] 02:20:00 Test Item Value Reference Range Interpretation Comments B/C Ratio (test code = B/C Ratio) 24 1 6-25 [facility] [id number] 02:20:00 Test Item Value Reference Range Interpretation Comments Globulin (test code = Globulin) 3.6 2.7-4.2 [facility] [id number] 02:20:00 Test Item Value Reference Range Interpretation Comments A/G Ratio (test code = A/G Ratio) 0.9 1 0.7-1.6 [facility] [id number] 02:20:00 Test Item Value Reference Range Interpretation Comments eGFR (test code = eGFR) 62 [facility] [id number] 02:20:00 Test Item Value Reference Range Interpretation Comments WBC (test code = WBC) 8.6 3.7-10.4 [place] 778932-07-25 02:20:00 Test Item Value Reference Range Interpretation Comments RBC (test code = RBC) 3.58 4.20-5.40 [place] 778932-07-25 02:20:00 Test Item Value Reference Range Interpretation Comments Hgb (test code = Hgb) 8.8 12.0-16.0 [place] [address]-07-25 02:20:00 Test Item Value Reference Range Interpretation Comments Hct (test code = Hct) 27.1 36.0-48.0 [place] 778932-07-25 02:20:00 Test Item Value Reference Range Interpretation Comments MCV (test code = MCV) 75.6 80.0-98.0 [place] [address]-07-25 02:20:00 Test Item Value Reference Range Interpretation Comments MCH (test code = MCH) 24.5 pg 27.0-31.0 [place] [address]-07-25 02:20:00 Test Item Value Reference Range Interpretation Comments MCHC (test code = MCHC) 32.4 32.0-36.0 [place] 778932-07-25 02:20:00 Test Item Value Reference Range Interpretation Comments RDW (test code = RDW) 21.1 11.5-14.5 [place] 778932-07-25 02:20:00 Test Item Value Reference Range Interpretation Comments Platelet (test code = Platelet) 297 133-450 [place] 778932-07-25 02:20:00 Test Item Value Reference Range Interpretation Comments MPV (test code = MPV) 7.5 7.4-10.4 [place] 778932-07-25 02:20:00 Test Item Value Reference Range Interpretation Comments Segs (test code = Segs) 85.8 45.0-75.0 [place] [address]-07-25 02:20:00 Test Item Value Reference Range Interpretation Comments Lymphocytes (test code = Lymphocytes) 8.5 20.0-40.0 [place] [address]-07-25 02:20:00 Test Item Value Reference Range Interpretation Comments Monocytes (test code = Monocytes) 5.0 2.0-12.0 [place] [address]-07-25 02:20:00 Test Item Value Reference Range Interpretation Comments Eosinophils (test code = 0.3 See_Comment [A utomated message] The Eosinophils) system which ge nerated this result tra nsmitted reference range : <=4.0. The reference r hugo was not used to int erpret this result as normal/abnormal . [facility] [id number] 02:20:00 Test Item Value Reference Range Interpretation Comments Basophils (test code = 0.4 See_Comment [Aut omated message] The Basophils) system which ge nerated this result tra nsmitted reference range : <=1.0. The reference r hugo was not used to int erpret this result as normal/abnormal . [facility] CenterOxyddkqZWWWYVLXUM9280-96-06 02:20:00 Test Item Value Reference Range Interpretation Comments Neutrophils # (test code = Neutrophils 7.4 1.5-8.1 #) [facility] CenterCofjoohNBIXSCTLNQ1556-81-89 02:20:00 Test Item Value Reference Range Interpretation Comments Lymphocytes # (test code = Lymphocytes 0.7 1.0-5.5 #) [facility] CenterMmtxacnENFIJIMWQC9792-08-30 02:20:00 Test Item Value Reference Range Interpretation Comments Monocytes # (test code 0.4 See_Comment [Aut omated message] The = Monocytes #) system which generated this result tra nsmitted reference range : <=0.8. The reference r hugo was not used to int erpret this result as normal/abnormal . [facility] CenterLqbcjunPBWRUSCEAD9682-56-21 02:20:00 Test Item Value Reference Range Interpretation Comments Microcyte (test code = 1+ *ABN*(06/12/22 Microcyte) 9:20 PM) [facility] [id number] 02:20:00 Test Item Value Reference Range Interpretation Comments HS Troponin I (test code = HS Troponin 52 I) [facility] [id number] 02:20:00 Test Item Value Reference Range Interpretation Comments Glucose Lvl (test code = Glucose Lvl) 103 70-99 [facility] [id number] 02:20:00 Test Item Value Reference Range Interpretation Comments BUN (test code = BUN) 22 - [facility] [id number] 02:20:00 Test Item Value Reference Range Interpretation Comments Creatinine Lvl (test code = Creatinine 0.90 0.50-1.40 Lvl) [place] 852652-07-25 02:20:00 Test Item Value Reference Range Interpretation Comments Sodium Lvl (test code = Sodium Lvl) 131 135-145 [place] 852652-07-25 02:20:00 Test Item Value Reference Range Interpretation Comments Potassium Lvl (test code = Potassium 4.2 3.5-5.1 Lvl) [place] 852652-07-25 02:20:00 Test Item Value Reference Range Interpretation Comments Chloride Lvl (test code = Chloride Lvl) 97 95-109 [place] 852652-07-25 02:20:00 Test Item Value Reference Range Interpretation Comments CO2 (test code = CO2) 26 24-32 [place] 852652-07-25 02:20:00 Test Item Value Reference Range Interpretation Comments Calcium Lvl (test code = Calcium Lvl) 8.7 8.5-10.5 [place] 852652-07-25 02:20:00 Test Item Value Reference Range Interpretation Comments Total Protein (test code = Total 7.0 6.4-8.4 Protein) [place] 852652-07-25 02:20:00 Test Item Value Reference Range Interpretation Comments Albumin Lvl (test code = Albumin Lvl) 3.4 3.5-5.0 [place] 852652-07-25 02:20:00 Test Item Value Reference Range Interpretation Comments ALT (test code = ALT) 18 See_Comment [Auto mated message] The system which ge nerated this result transmit lavon reference range : <=65. The reference range was not used to interpr et this result as dionne l/abnormal. [place] 852652-07-25 02:20:00 Test Item Value Reference Range Interpretation Comments AST (test code = AST) 27 See_Comment [Auto mated message] The system which ge nerated this result transmit lavon reference range : <=37. The reference range was not used to interpr et this result as dionne l/abnormal. [place] [address]-07-25 02:20:00 Test Item Value Reference Range Interpretation Comments Alk Phos (test code = Alk Phos) 57 39-136 [place] 852652-07-25 02:20:00 Test Item Value Reference Range Interpretation Comments Bili Total (test code = Bili Total) 1.0 0.2-1.3 [facility]2022-07-25 02:20:00 Test Item Value Reference Range Interpretation Comments AGAP (test code = AGAP) 12.2 10.0-20.0 [facility]2022-07-25 02:20:00 Test Item Value Reference Range Interpretation Comments B/C Ratio (test code = B/C Ratio) 24 1 6-25 [place] 852652-07-25 02:20:00 Test Item Value Reference Range Interpretation Comments Globulin (test code = Globulin) 3.6 2.7-4.2 [place] 852652-07-25 02:20:00 Test Item Value Reference Range Interpretation Comments A/G Ratio (test code = A/G Ratio) 0.9 1 0.7-1.6 [facility]2022-07-25 02:20:00 Test Item Value Reference Range Interpretation Comments eGFR (test code = eGFR) 62 [facility] CenterZdxiryrVFQKGJMQSP6730-02-12 02:20:00 Test Item Value Reference Range Interpretation Comments WBC (test code = WBC) 8.6 3.7-10.4 [place] 778932-07-25 02:20:00 Test Item Value Reference Range Interpretation Comments RBC (test code = RBC) 3.58 4.20-5.40 [place] 778932-07-25 02:20:00 Test Item Value Reference Range Interpretation Comments Hgb (test code = Hgb) 8.8 12.0-16.0 [place] 778932-07-25 02:20:00 Test Item Value Reference Range Interpretation Comments Hct (test code = Hct) 27.1 36.0-48.0 [place] 778932-07-25 02:20:00 Test Item Value Reference Range Interpretation Comments MCV (test code = MCV) 75.6 80.0-98.0 [place] 778932-07-25 02:20:00 Test Item Value Reference Range Interpretation Comments MCH (test code = MCH) 24.5 pg 27.0-31.0 [place] 778932-07-25 02:20:00 Test Item Value Reference Range Interpretation Comments MCHC (test code = MCHC) 32.4 32.0-36.0 [facility] C[id number] 02:20:00 Test Item Value Reference Range Interpretation Comments RDW (test code = RDW) 21.1 11.5-14.5 [facility] [id number]00 Test Item Value Reference Range Interpretation Comments Platelet (test code = Platelet) 297 133-450 [facility] CenterRciyswhCKVKBSPFCL1839-14-98 02:20:00 Test Item Value Reference Range Interpretation Comments MPV (test code = MPV) 7.5 7.4-10.4 [place] 778932-07-25 02:20:00 Test Item Value Reference Range Interpretation Comments Segs (test code = Segs) 85.8 45.0-75.0 [place] 778932-07-25 02:20:00 Test Item Value Reference Range Interpretation Comments Lymphocytes (test code = Lymphocytes) 8.5 20.0-40.0 [facility] CenterCwmhsmaTZXSWYTVSY5229-01-24 02:20:00 Test Item Value Reference Range Interpretation Comments Monocytes (test code = Monocytes) 5.0 2.0-12.0 [facility] CenterRepjlveRADOKIIMNN2025-86-98 02:20:00 Test Item Value Reference Range Interpretation Comments Eosinophils (test code = 0.3 See_Comment [A utomated message] The Eosinophils) system which ge nerated this result tra nsmitted reference range : <=4.0. The reference r hugo was not used to int erpret this result as normal/abnormal . [facility] CenterShmtlkdQRPRNLMLDW3394-36-70 02:20:00 Test Item Value Reference Range Interpretation Comments Basophils (test code = 0.4 See_Comment [Aut omated message] The Basophils) system which ge nerated this result tra nsmitted reference range : <=1.0. The reference r hugo was not used to int erpret this result as normal/abnormal . [facility] CenterTwlswzjIKTQKKMSLL0831-24-18 02:20:00 Test Item Value Reference Range Interpretation Comments Neutrophils # (test code = Neutrophils 7.4 1.5-8.1 #) [facility] CenterTibojzmRBGYXOKKIY5694-65-45 02:20:00 Test Item Value Reference Range Interpretation Comments Lymphocytes # (test code = Lymphocytes 0.7 1.0-5.5 #) [place] 778932-07-25 02:20:00 Test Item Value Reference Range Interpretation Comments Monocytes # (test code 0.4 See_Comment [Aut omated message] The = Monocytes #) system which generated this result tra nsmitted reference range : <=0.8. The reference r hugo was not used to int erpret this result as normal/abnormal . [facility] CenterYsfissqVOBOCFJRXU8481-35-27 02:20:00 Test Item Value Reference Range Interpretation Comments Microcyte (test code = 1+ *ABN*(06/12/22 Microcyte) 9:20 PM) [facility] [id number] 02:20:00 Test Item Value Reference Range Interpretation Comments HS Troponin I (test code = HS Troponin 52 I) [facility] [id number] 02:20:00 Test Item Value Reference Range Interpretation Comments Glucose Lvl (test code = Glucose Lvl) 103 70-99 [facility]2022-07-25 02:20:00 Test Item Value Reference Range Interpretation Comments BUN (test code = BUN) 22 -22 [facility]2022-07-25 02:20:00 Test Item Value Reference Range Interpretation Comments Creatinine Lvl (test code = Creatinine 0.90 0.50-1.40 Lvl) [facility] [id number] 02:20:00 Test Item Value Reference Range Interpretation Comments Sodium Lvl (test code = Sodium Lvl) 131 135-145 [facility]2022-07-25 02:20:00 Test Item Value Reference Range Interpretation Comments Potassium Lvl (test code = Potassium 4.2 3.5-5.1 Lvl) [facility] [id number] 02:20:00 Test Item Value Reference Range Interpretation Comments Chloride Lvl (test code = Chloride Lvl) 97 95-109 [facility] [id number] 02:20:00 Test Item Value Reference Range Interpretation Comments CO2 (test code = CO2) 24-32 [facility]2022-07-25 02:20:00 Test Item Value Reference Range Interpretation Comments Calcium Lvl (test code = Calcium Lvl) 8.7 8.5-10.5 [facility]2022-07-25 02:20:00 Test Item Value Reference Range Interpretation Comments Total Protein (test code = Total 7.0 6.4-8.4 Protein) [facility]2022-07-25 02:20:00 Test Item Value Reference Range Interpretation Comments Albumin Lvl (test code = Albumin Lvl) 3.4 3.5-5.0 [facility]2022-07-25 02:20:00 Test Item Value Reference Range Interpretation Comments ALT (test code = ALT) 18 See_Comment [Auto mated message] The system which ge nerated this result transmit lavon reference range : <=65. The reference range was not used to interpr et this result as dionne l/abnormal. [facility] [id number] 02:20:00 Test Item Value Reference Range Interpretation Comments AST (test code = AST) 27 See_Comment [Auto mated message] The system which ge nerated this result transmit lavon reference range : <=37. The reference range was not used to interpr et this result as dionne l/abnormal. [facility] [id number] 02:20:00 Test Item Value Reference Range Interpretation Comments Alk Phos (test code = Alk Phos) 57 39-136 [facility] [id number] 02:20:00 Test Item Value Reference Range Interpretation Comments Bili Total (test code = Bili Total) 1.0 0.2-1.3 [facility] [id number] 02:20:00 Test Item Value Reference Range Interpretation Comments AGAP (test code = AGAP) 12.2 10.0-20.0 [facility] [id number] 02:20:00 Test Item Value Reference Range Interpretation Comments B/C Ratio (test code = B/C Ratio) 24 1 6-25 [facility] [id number] 02:20:00 Test Item Value Reference Range Interpretation Comments Globulin (test code = Globulin) 3.6 2.7-4.2 [facility] [id number] 02:20:00 Test Item Value Reference Range Interpretation Comments A/G Ratio (test code = A/G Ratio) 0.9 1 0.7-1.6 [facility] [id number] 02:20:00 Test Item Value Reference Range Interpretation Comments eGFR (test code = eGFR) 62 [place] 778932-07-25 02:20:00 Test Item Value Reference Range Interpretation Comments WBC (test code = WBC) 8.6 3.7-10.4 [place] 778932-07-25 02:20:00 Test Item Value Reference Range Interpretation Comments RBC (test code = RBC) 3.58 4.20-5.40 [place] 778932-07-25 02:20:00 Test Item Value Reference Range Interpretation Comments Hgb (test code = Hgb) 8.8 12.0-16.0 [place] 778932-07-25 02:20:00 Test Item Value Reference Range Interpretation Comments Hct (test code = Hct) 27.1 36.0-48.0 [place] 778932-07-25 02:20:00 Test Item Value Reference Range Interpretation Comments MCV (test code = MCV) 75.6 80.0-98.0 [place] 778932-07-25 02:20:00 Test Item Value Reference Range Interpretation Comments MCH (test code = MCH) 24.5 pg 27.0-31.0 [facility] [id number] 02:20:00 Test Item Value Reference Range Interpretation Comments MCHC (test code = MCHC) 32.4 32.0-36.0 [facility] CenterWngijubQMAEHJMZFG5491-69-47 02:20:00 Test Item Value Reference Range Interpretation Comments RDW (test code = RDW) 21.1 11.5-14.5 [place] 778932-07-25 02:20:00 Test Item Value Reference Range Interpretation Comments Platelet (test code = Platelet) 297 133-450 [facility] CenterVsanfovOVPJYFTLCA8213-08-01 02:20:00 Test Item Value Reference Range Interpretation Comments MPV (test code = MPV) 7.5 7.4-10.4 [place] 778932-07-25 02:20:00 Test Item Value Reference Range Interpretation Comments Segs (test code = Segs) 85.8 45.0-75.0 [place] 778932-07-25 02:20:00 Test Item Value Reference Range Interpretation Comments Lymphocytes (test code = Lymphocytes) 8.5 20.0-40.0 [place] 778932-07-25 02:20:00 Test Item Value Reference Range Interpretation Comments Monocytes (test code = Monocytes) 5.0 2.0-12.0 [facility] CenterItnvybpARHBEQGXIN5320-41-03 02:20:00 Test Item Value Reference Range Interpretation Comments Eosinophils (test code = 0.3 See_Comment [A utomated message] The Eosinophils) system which ge nerated this result tra nsmitted reference range : <=4.0. The reference r hugo was not used to int erpret this result as normal/abnormal . [facility] C[id number] 02:20:00 Test Item Value Reference Range Interpretation Comments Basophils (test code = 0.4 See_Comment [Aut omated message] The Basophils) system which ge nerated this result tra nsmitted reference range : <=1.0. The reference r hugo was not used to int erpret this result as normal/abnormal . [facility] CenterXqurldxCOOGWLGCFO1903-90-81 02:20:00 Test Item Value Reference Range Interpretation Comments Neutrophils # (test code = Neutrophils 7.4 1.5-8.1 #) [facility] CenterAxujkepMIZACIOKNU2894-04-80 02:20:00 Test Item Value Reference Range Interpretation Comments Lymphocytes # (test code = Lymphocytes 0.7 1.0-5.5 #) [facility] CenterSomdjwcIJQWGTSSWT7518-23-39 02:20:00 Test Item Value Reference Range Interpretation Comments Monocytes # (test code 0.4 See_Comment [Aut omated message] The = Monocytes #) system which generated this result tra nsmitted reference range : <=0.8. The reference r hugo was not used to int erpret this result as normal/abnormal . [facility] CenterEwycexmTBDVGAAXCA5321-45-82 02:20:00 Test Item Value Reference Range Interpretation Comments Microcyte (test code = 1+ *ABN*(06/12/22 Microcyte) 9:20 PM) [facility] [id number] 02:20:00 Test Item Value Reference Range Interpretation Comments HS Troponin I (test code = HS Troponin 52 I) [facility]2022-07-25 02:20:00 Test Item Value Reference Range Interpretation Comments Glucose Lvl (test code = Glucose Lvl) 103 70-99 [facility]2022-07-25 02:20:00 Test Item Value Reference Range Interpretation Comments BUN (test code = BUN) 22 7-22 [place] 852652-07-25 02:20:00 Test Item Value Reference Range Interpretation Comments Creatinine Lvl (test code = Creatinine 0.90 0.50-1.40 Lvl) [place] 852652-07-25 02:20:00 Test Item Value Reference Range Interpretation Comments Sodium Lvl (test code = Sodium Lvl) 131 135-145 [place] 852652-07-25 02:20:00 Test Item Value Reference Range Interpretation Comments Potassium Lvl (test code = Potassium 4.2 3.5-5.1 Lvl) [place] 852652-07-25 02:20:00 Test Item Value Reference Range Interpretation Comments Chloride Lvl (test code = Chloride Lvl) 97 95-109 [place] 852652-07-25 02:20:00 Test Item Value Reference Range Interpretation Comments CO2 (test code = CO2) 26 24-32 [place] 852652-07-25 02:20:00 Test Item Value Reference Range Interpretation Comments Calcium Lvl (test code = Calcium Lvl) 8.7 8.5-10.5 [place] 852652-07-25 02:20:00 Test Item Value Reference Range Interpretation Comments Total Protein (test code = Total 7.0 6.4-8.4 Protein) [place] 852652-07-25 02:20:00 Test Item Value Reference Range Interpretation Comments Albumin Lvl (test code = Albumin Lvl) 3.4 3.5-5.0 [place] 852652-07-25 02:20:00 Test Item Value Reference Range Interpretation Comments ALT (test code = ALT) 18 See_Comment [Auto mated message] The system which ge nerated this result transmit lavon reference range : <=65. The reference range was not used to interpr et this result as dionne l/abnormal. [place] 852652-07-25 02:20:00 Test Item Value Reference Range Interpretation Comments AST (test code = AST) 27 See_Comment [Auto mated message] The system which ge nerated this result transmit lavon reference range : <=37. The reference range was not used to interpr et this result as dionne l/abnormal. [place] 852652-07-25 02:20:00 Test Item Value Reference Range Interpretation Comments Alk Phos (test code = Alk Phos) 57 39-136 [facility]2022-07-25 02:20:00 Test Item Value Reference Range Interpretation Comments Bili Total (test code = Bili Total) 1.0 0.2-1.3 [place] 852652-07-25 02:20:00 Test Item Value Reference Range Interpretation Comments AGAP (test code = AGAP) 12.2 10.0-20.0 [facility]2022-07-25 02:20:00 Test Item Value Reference Range Interpretation Comments B/C Ratio (test code = B/C Ratio) 24 1 6-25 [place] 852652-07-25 02:20:00 Test Item Value Reference Range Interpretation Comments Globulin (test code = Globulin) 3.6 2.7-4.2 [facility]2022-07-25 02:20:00 Test Item Value Reference Range Interpretation Comments A/G Ratio (test code = A/G Ratio) 0.9 1 0.7-1.6 [facility]2022-07-25 02:20:00 Test Item Value Reference Range Interpretation Comments eGFR (test code = eGFR) 62 [facility] CenterG[id number] 02:20:00 Test Item Value Reference Range Interpretation Comments WBC (test code = WBC) 8.6 3.7-10.4 [place] 778932-07-25 02:20:00 Test Item Value Reference Range Interpretation Comments RBC (test code = RBC) 3.58 4.20-5.40 [place] 778932-07-25 02:20:00 Test Item Value Reference Range Interpretation Comments Hgb (test code = Hgb) 8.8 12.0-16.0 [place] 778932-07-25 02:20:00 Test Item Value Reference Range Interpretation Comments Hct (test code = Hct) 27.1 36.0-48.0 [place] 778932-07-25 02:20:00 Test Item Value Reference Range Interpretation Comments MCV (test code = MCV) 75.6 80.0-98.0 [place] 778932-07-25 02:20:00 Test Item Value Reference Range Interpretation Comments MCH (test code = MCH) 24.5 pg 27.0-31.0 [facility] CenterNiqhmrtGNUIMHXYTZ1156-70-28 02:20:00 Test Item Value Reference Range Interpretation Comments MCHC (test code = MCHC) 32.4 32.0-36.0 [facility] CenterImtgpjvGLFBFBULBM6741-23-13 02:20:00 Test Item Value Reference Range Interpretation Comments RDW (test code = RDW) 21.1 11.5-14.5 [facility] CenterErzdhjcCABCBZTQQJ3229-47-91 02:20:00 Test Item Value Reference Range Interpretation Comments Platelet (test code = Platelet) 297 133-450 [facility] [id number] 02:20:00 Test Item Value Reference Range Interpretation Comments MPV (test code = MPV) 7.5 7.4-10.4 [place] 778932-07-25 02:20:00 Test Item Value Reference Range Interpretation Comments Segs (test code = Segs) 85.8 45.0-75.0 [facility] CenterDobwhkwBPAMCQKZQW8398-75-52 02:20:00 Test Item Value Reference Range Interpretation Comments Lymphocytes (test code = Lymphocytes) 8.5 20.0-40.0 [facility] CenterJwfbfdtYNVRXNVVOR2816-42-12 02:20:00 Test Item Value Reference Range Interpretation Comments Monocytes (test code = Monocytes) 5.0 2.0-12.0 [facility] CenterDqzyaayXVUPKSGKSA6231-89-46 02:20:00 Test Item Value Reference Range Interpretation Comments Eosinophils (test code = 0.3 See_Comment [A utomated message] The Eosinophils) system which ge nerated this result tra nsmitted reference range : <=4.0. The reference r hugo was not used to int erpret this result as normal/abnormal . [facility] CenterWodalzoSNTMHQOLSG8010-49-35 02:20:00 Test Item Value Reference Range Interpretation Comments Basophils (test code = 0.4 See_Comment [Aut omated message] The Basophils) system which ge nerated this result tra nsmitted reference range : <=1.0. The reference r hugo was not used to int erpret this result as normal/abnormal . [facility] CenterMggohvgLNVTLPMARN6248-29-32 02:20:00 Test Item Value Reference Range Interpretation Comments Neutrophils # (test code = Neutrophils 7.4 1.5-8.1 #) [place] 778932-07-25 02:20:00 Test Item Value Reference Range Interpretation Comments Lymphocytes # (test code = Lymphocytes 0.7 1.0-5.5 #) [facility] CenterTekfxeeCTCYPZEUBG0388-91-60 02:20:00 Test Item Value Reference Range Interpretation Comments Monocytes # (test code 0.4 See_Comment [Aut omated message] The = Monocytes #) system which generated this result tra nsmitted reference range : <=0.8. The reference r hugo was not used to int erpret this result as normal/abnormal . [facility] CenterVmsnawgVIJERLDEEE6018-48-42 02:20:00 Test Item Value Reference Range Interpretation Comments Microcyte (test code = 1+ *ABN*(06/12/22 Microcyte) 9:20 PM) [facility]2022-07-25 02:20:00 Test Item Value Reference Range Interpretation Comments HS Troponin I (test code = HS Troponin 52 I) [facility]2022-07-25 02:20:00 Test Item Value Reference Range Interpretation Comments Glucose Lvl (test code = Glucose Lvl) 103 70-99 [facility]2022-07-25 02:20:00 Test Item Value Reference Range Interpretation Comments BUN (test code = BUN) 22 7-22 [facility]2022-07-25 02:20:00 Test Item Value Reference Range Interpretation Comments Creatinine Lvl (test code = Creatinine 0.90 0.50-1.40 Lvl) [facility]2022-07-25 02:20:00 Test Item Value Reference Range Interpretation Comments Sodium Lvl (test code = Sodium Lvl) 131 135-145 [facility]2022-07-25 02:20:00 Test Item Value Reference Range Interpretation Comments Potassium Lvl (test code = Potassium 4.2 3.5-5.1 Lvl) [facility]2022-07-25 02:20:00 Test Item Value Reference Range Interpretation Comments Chloride Lvl (test code = Chloride Lvl) 97 95-109 [facility]2022-07-25 02:20:00 Test Item Value Reference Range Interpretation Comments CO2 (test code = CO2) 26 24-32 [facility]2022-07-25 02:20:00 Test Item Value Reference Range Interpretation Comments Calcium Lvl (test code = Calcium Lvl) 8.7 8.5-10.5 [place] 852652-07-25 02:20:00 Test Item Value Reference Range Interpretation Comments Total Protein (test code = Total 7.0 6.4-8.4 Protein) [place] 852652-07-25 02:20:00 Test Item Value Reference Range Interpretation Comments Albumin Lvl (test code = Albumin Lvl) 3.4 3.5-5.0 [place] 852652-07-25 02:20:00 Test Item Value Reference Range Interpretation Comments ALT (test code = ALT) 18 See_Comment [Auto mated message] The system which ge nerated this result transmit lavon reference range : <=65. The reference range was not used to interpr et this result as dionne l/abnormal. [place] 852652-07-25 02:20:00 Test Item Value Reference Range Interpretation Comments AST (test code = AST) 27 See_Comment [Auto mated message] The system which ge nerated this result transmit lavon reference range : <=37. The reference range was not used to interpr et this result as dionne l/abnormal. [place] 852652-07-25 02:20:00 Test Item Value Reference Range Interpretation Comments Alk Phos (test code = Alk Phos) 57 39-136 [facility] [id number] 02:20:00 Test Item Value Reference Range Interpretation Comments Bili Total (test code = Bili Total) 1.0 0.2-1.3 [place] 852652-07-25 02:20:00 Test Item Value Reference Range Interpretation Comments AGAP (test code = AGAP) 12.2 10.0-20.0 [facility] [id number] 02:20:00 Test Item Value Reference Range Interpretation Comments B/C Ratio (test code = B/C Ratio) 24 1 6-25 [facility] [id number] 02:20:00 Test Item Value Reference Range Interpretation Comments Globulin (test code = Globulin) 3.6 2.7-4.2 [facility] [id number] 02:20:00 Test Item Value Reference Range Interpretation Comments A/G Ratio (test code = A/G Ratio) 0.9 1 0.7-1.6 [facility]2022-07-25 02:20:00 Test Item Value Reference Range Interpretation Comments eGFR (test code = eGFR) 62 [facility] CenterZlzwhnmCIGDQZGRXH3092-22-01 02:20:00 Test Item Value Reference Range Interpretation Comments WBC (test code = WBC) 8.6 3.7-10.4 [place] 778932-07-25 02:20:00 Test Item Value Reference Range Interpretation Comments RBC (test code = RBC) 3.58 4.20-5.40 [place] 778932-07-25 02:20:00 Test Item Value Reference Range Interpretation Comments Hgb (test code = Hgb) 8.8 12.0-16.0 [place] 778932-07-25 02:20:00 Test Item Value Reference Range Interpretation Comments Hct (test code = Hct) 27.1 36.0-48.0 [place] 778932-07-25 02:20:00 Test Item Value Reference Range Interpretation Comments MCV (test code = MCV) 75.6 80.0-98.0 [place] 778932-07-25 02:20:00 Test Item Value Reference Range Interpretation Comments MCH (test code = MCH) 24.5 pg 27.0-31.0 [place] 778932-07-25 02:20:00 Test Item Value Reference Range Interpretation Comments MCHC (test code = MCHC) 32.4 32.0-36.0 [place] 778932-07-25 02:20:00 Test Item Value Reference Range Interpretation Comments RDW (test code = RDW) 21.1 11.5-14.5 [place] 778932-07-25 02:20:00 Test Item Value Reference Range Interpretation Comments Platelet (test code = Platelet) 297 133-450 [facility] CenterKftlwmnHTTTVVQYRL1427-28-48 02:20:00 Test Item Value Reference Range Interpretation Comments MPV (test code = MPV) 7.5 7.4-10.4 [place] 778932-07-25 02:20:00 Test Item Value Reference Range Interpretation Comments Segs (test code = Segs) 85.8 45.0-75.0 [place] 778932-07-25 02:20:00 Test Item Value Reference Range Interpretation Comments Lymphocytes (test code = Lymphocytes) 8.5 20.0-40.0 [facility]G9883[facility]40-75 02:20:00 Test Item Value Reference Range Interpretation Comments Monocytes (test code = Monocytes) 5.0 2.0-12.0 [facility] CenterBpgghvtPBWELWISTH0950-44-60 02:20:00 Test Item Value Reference Range Interpretation Comments Eosinophils (test code = 0.3 See_Comment [A utomated message] The Eosinophils) system which ge nerated this result tra nsmitted reference range : <=4.0. The reference r hugo was not used to int erpret this result as normal/abnormal . [facility] CenterHrpflxuWRJSHWOCYP7555-50-02 02:20:00 Test Item Value Reference Range Interpretation Comments Basophils (test code = 0.4 See_Comment [Aut omated message] The Basophils) system which ge nerated this result tra nsmitted reference range : <=1.0. The reference r hugo was not used to int erpret this result as normal/abnormal . [facility] CenterGdeqcmfEMUZMEDOCU1415-63-30 02:20:00 Test Item Value Reference Range Interpretation Comments Neutrophils # (test code = Neutrophils 7.4 1.5-8.1 #) [facility] CenterCicrzglSJAPQXEIBV3524-78-71 02:20:00 Test Item Value Reference Range Interpretation Comments Lymphocytes # (test code = Lymphocytes 0.7 1.0-5.5 #) [facility] CenterAkhwjjqZDIPOVOEYG8486-71-02 02:20:00 Test Item Value Reference Range Interpretation Comments Monocytes # (test code 0.4 See_Comment [Aut omated message] The = Monocytes #) system which generated this result tra nsmitted reference range : <=0.8. The reference r hugo was not used to int erpret this result as normal/abnormal . [facility] CenterOpkhhhpCWTDGXXZEB0020-19-59 02:20:00 Test Item Value Reference Range Interpretation Comments Microcyte (test code = 1+ *ABN*(06/12/22 Microcyte) 9:20 PM) [facility] [id number] 02:20:00 Test Item Value Reference Range Interpretation Comments HS Troponin I (test code = HS Troponin 52 I) [facility]villeCHEM [id number] 02:20:00 Test Item Value Reference Range Interpretation Comments Glucose Lvl (test code = Glucose Lvl) 103 70-99 [place] 852652-07-25 02:20:00 Test Item Value Reference Range Interpretation Comments BUN (test code = BUN) 22 7-22 [place] 852652-07-25 02:20:00 Test Item Value Reference Range Interpretation Comments Creatinine Lvl (test code = Creatinine 0.90 0.50-1.40 Lvl) [place] 852652-07-25 02:20:00 Test Item Value Reference Range Interpretation Comments Sodium Lvl (test code = Sodium Lvl) 131 135-145 [place] 852652-07-25 02:20:00 Test Item Value Reference Range Interpretation Comments Potassium Lvl (test code = Potassium 4.2 3.5-5.1 Lvl) [place] 852652-07-25 02:20:00 Test Item Value Reference Range Interpretation Comments Chloride Lvl (test code = Chloride Lvl) 97 95-109 [place] 852652-07-25 02:20:00 Test Item Value Reference Range Interpretation Comments CO2 (test code = CO2) 26 24-32 [place] 852652-07-25 02:20:00 Test Item Value Reference Range Interpretation Comments Calcium Lvl (test code = Calcium Lvl) 8.7 8.5-10.5 [place] 852652-07-25 02:20:00 Test Item Value Reference Range Interpretation Comments Total Protein (test code = Total 7.0 6.4-8.4 Protein) [place] 852652-07-25 02:20:00 Test Item Value Reference Range Interpretation Comments Albumin Lvl (test code = Albumin Lvl) 3.4 3.5-5.0 [place] 852652-07-25 02:20:00 Test Item Value Reference Range Interpretation Comments ALT (test code = ALT) 18 See_Comment [Auto mated message] The system which ge nerated this result transmit lavon reference range : <=65. The reference range was not used to interpr et this result as dionne l/abnormal. [place] 852652-07-25 02:20:00 Test Item Value Reference Range Interpretation Comments AST (test code = AST) 27 See_Comment [Auto mated message] The system which ge nerated this result transmit lavon reference range : <=37. The reference range was not used to interpr et this result as dionne l/abnormal. [place] 852652-07-25 02:20:00 Test Item Value Reference Range Interpretation Comments Alk Phos (test code = Alk Phos) 57 39-136 [place] 852652-07-25 02:20:00 Test Item Value Reference Range Interpretation Comments Bili Total (test code = Bili Total) 1.0 0.2-1.3 [place] 852652-07-25 02:20:00 Test Item Value Reference Range Interpretation Comments AGAP (test code = AGAP) 12.2 10.0-20.0 [place] 852652-07-25 02:20:00 Test Item Value Reference Range Interpretation Comments B/C Ratio (test code = B/C Ratio) 24 1 6-25 [place] 852652-07-25 02:20:00 Test Item Value Reference Range Interpretation Comments Globulin (test code = Globulin) 3.6 2.7-4.2 [place] 852652-07-25 02:20:00 Test Item Value Reference Range Interpretation Comments A/G Ratio (test code = A/G Ratio) 0.9 1 0.7-1.6 [place] 852652-07-25 02:20:00 Test Item Value Reference Range Interpretation Comments eGFR (test code = eGFR) 62 [place] 778932-07-25 02:20:00 Test Item Value Reference Range Interpretation Comments WBC (test code = WBC) 8.6 3.7-10.4 [place] 778932-07-25 02:20:00 Test Item Value Reference Range Interpretation Comments RBC (test code = RBC) 3.58 4.20-5.40 [place] 12581-07-25 02:20:00 Test Item Value Reference Range Interpretation Comments Hgb (test code = Hgb) 8.8 12.0-16.0 [place] 12581-07-25 02:20:00 Test Item Value Reference Range Interpretation Comments Hct (test code = Hct) 27.1 36.0-48.0 [place] 778932-07-25 02:20:00 Test Item Value Reference Range Interpretation Comments MCV (test code = MCV) 75.6 80.0-98.0 [facility]DYPVSDTA9086[facility] 02:20:00 Test Item Value Reference Range Interpretation Comments MCH (test code = MCH) 24.5 pg 27.0-31.0 [facility] CenterFsddzcvKHIZQYEMZQ4474-11-98 02:20:00 Test Item Value Reference Range Interpretation Comments MCHC (test code = MCHC) 32.4 32.0-36.0 [facility] CenterRkhpowrUXJJXOPXFE4882-15-65 02:20:00 Test Item Value Reference Range Interpretation Comments RDW (test code = RDW) 21.1 11.5-14.5 [facility] CenterNlpoyjxQIOMLWTXAO4334-30-61 02:20:00 Test Item Value Reference Range Interpretation Comments Platelet (test code = Platelet) 297 133-450 [facility] CenterKisezwoPLBGANDVFU0417-68-74 02:20:00 Test Item Value Reference Range Interpretation Comments MPV (test code = MPV) 7.5 7.4-10.4 [facility] CenterKpvapkwFVSGGNYFHX8870-48-16 02:20:00 Test Item Value Reference Range Interpretation Comments Segs (test code = Segs) 85.8 45.0-75.0 [facility] CenterUvnackwYIXMSLNWZT6153-29-42 02:20:00 Test Item Value Reference Range Interpretation Comments Lymphocytes (test code = Lymphocytes) 8.5 20.0-40.0 [facility] CenterZoilowoAVJMHBJKAB5588-71-11 02:20:00 Test Item Value Reference Range Interpretation Comments Monocytes (test code = Monocytes) 5.0 2.0-12.0 [facility] CenterMjwtubrKWJZJDWHLK6021-48-70 02:20:00 Test Item Value Reference Range Interpretation Comments Eosinophils (test code = 0.3 See_Comment [A utomated message] The Eosinophils) system which ge nerated this result tra nsmitted reference range : <=4.0. The reference r hugo was not used to int erpret this result as normal/abnormal . [place] 778932-07-25 02:20:00 Test Item Value Reference Range Interpretation Comments Basophils (test code = 0.4 See_Comment [Aut omated message] The Basophils) system which ge nerated this result tra nsmitted reference range : <=1.0. The reference r hugo was not used to int erpret this result as normal/abnormal . [place] 778932-07-25 02:20:00 Test Item Value Reference Range Interpretation Comments Neutrophils # (test code = Neutrophils 7.4 1.5-8.1 #) [facility] CenterBlrlunpTNPOVVZLQY5592-30-84 02:20:00 Test Item Value Reference Range Interpretation Comments Lymphocytes # (test code = Lymphocytes 0.7 1.0-5.5 #) [facility] CenterLqnhrwfHHSROOKINP1030-84-32 02:20:00 Test Item Value Reference Range Interpretation Comments Monocytes # (test code 0.4 See_Comment [Aut omated message] The = Monocytes #) system which generated this result tra nsmitted reference range : <=0.8. The reference r hugo was not used to int erpret this result as normal/abnormal . [facility] CenterRwiolumIOUCOTHEXK1350-40-70 02:20:00 Test Item Value Reference Range Interpretation Comments Microcyte (test code = 1+ *ABN*(06/12/22 Microcyte) 9:20 PM) [facility]65 11:14:00 Test Item Value Reference Range Interpretation Comments SURGICAL (test code = SR) R UN DATE: 06/01/22 [facility] PAGE 1 RUN TIME: 1114 Specimen Inquiry RUN USER: INTERFACE P ATIENT: KELLY SLOAN LOC: AnujaCVN1 U #: [id number] AGE/SX: 87/F ROOM: [facility] RE05/20/22REG DR: Frank Putnam MD : 35 BED: 1 DIS: 05/26/22 STATUS: DIS IN TLOC: SPEC #: [id number] RECD: 05/28/22-1416 STATUS: MALOU REQ #: [id number] FLORES: 05/25/22- SUBM DR: Frank Putnam MD ENTERED: 05/28/22-1416 SP TYPE: SURGICAL OTHR DR: Lizeth Morales MD, Nehme X MD Chaugle, Abdul Hannan MD Lee, Gabriel MD Mahmood, Khalid MD Tharani, Shamshad NPORDERED: 27642, 65299, IHC ADD 02581/7, 38443-64, ANATOMIC SPEC COPIES TO: Lizeth Morales MD [address] [place] [address] John Alberto MD [address] [place] [address] Marcellus De La Garza MD [address] [facility] [place] [id number] Camron Fonseca MD [address] [facility] [address] [place] [address] Kyler Longoria MD [address] [place] [id number] Frank Putnam MD [address] [facility] [address] [place], [place] [id number] Ofelia Syed [employer] [address] [place] [address] CONTINUED ON NEXT PAGE R UN DATE: 06/01/22 [facility] - LAB PAGE 2 RUN TIME: 1114 Specimen Inquiry RUN USER: INTERFACE S PEC #: [id number] PATIENT: KELLY SLOAN Patricia #[id number] (Continued) PROCEDURES: 10943 (05/28/22-141) 19666 (06/01/22) IHC ADD 44266 (06/01/22) 46685-37 (06/01/22) TISSUES: A. PERITONEUM BIOPSY - NODULE, [...] submitted in 1cassette. Technical component performed at [facility],[address] [place] [address] Unless gross only, the diagnosis is based [...] CK20 and calretinin. Inhibin immunohistochemical stainperformed at [facility] and interpreted at [facility] is negative in the tumor cells. CONTINUED ON NEXT PAGE R UN DATE: 06/01/22 [facility] PAGE 3 RUN TIME: 1114 Specimen Inquiry RUN USER: INTERFACE S PEC #: [id number] PATIENT: KELLY SLOAN #[id number] (Continued) CLINICAL INFORMATION PERITONAL NODULE ----- Signed _ CynthiaDav 06/01/22 1114 END OF REPORT [id number] 10:45:00 Test Item Value Reference Range Interpretation Comments MAGNESIUM (test code = MAG) 1.65 mg/dL 1.80-2.40 L CBC W/AUTO [id number] 08:08:00 Test Item Value Reference Range Interpretation [...] (test code NO = MDIFF) BASIC METABOLIC [id number] 07:29:00 Test Item Value Reference Range Interpretation [...] = 8.9 mg/dL 8.0-10.5 N CA) PROTHROMBIN [id number] 06:41:00 Test Item Value Reference Range Interpretation [...] recurrent infar ct). COVID 19 Asymptomatic IH [id number] 04:50:00 Test Item Value Reference Range Interpretation [...] y tests. COMMENTS: PRE ENDO- [facility] (Biopsy/Asp)2022-05-25 00:00:00 [facility] 1935 Sex: F Name: KELLY SLOAN [facility] : 1935 Age/S: 87 / F [address] [place] [address] Unit #: [id number] Loc: [place] [address] Phys: Jamshid Chang MD Acct: [id number] Dis Date: Status: ADM IN PHONE #: [phone] Exam Date: 05/25/2022 1313 FAX #: [phone] Reason: peritoneal mets- etiology? EXAMS: CPT CODE: [id number] [facility] (Biopsy/Asp) 75856 PROCEDURE INFORMATION: Exam: IR Biopsy, abdominal or [...] 1 Signed Report (CONTINUED) Name: KELLY SLOAN [facility] : 1935 Age/S: 87 / F [address] [place] [address] Unit #: [id number] Loc: [place] [address] Phys: Jamshid Chang MD Acct: [id number] Dis Date: Status: ADM IN PHONE #: [phone] Exam Date: 05/25/2022 1313 FAX #: [phone] Reason: peritoneal mets- etiology? EXAMS: CPT CODE: [id number] CT GUID NDL PLCMT (Biopsy/Asp) 67683 (Continued) at 1501 Reported and signed by: Aure Munroe D.O. CC: Jamshid Chang MD; Frank Putnam MD Technologist:Jose Kaiser, RT(R)(CT) CTDI: DLP:Trnscb Date/Time: 05/25/2022 (1500) t.SDR.MP37 Orig Print D/T: S: 05/25/2022 (1500) PAGE 2 Signed ReportPROTEIN ELECTROPHORESIS [id number] 17:08:00 Test Item Value Reference Range Interpretation Comments TOTAL PROTEIN 5.7 g/dL 6.0-8.5 L (test code = PROTE) ALBUMIN (test 3.1 g/dL 2.9-4.4 code = ALBE) IFBGF-5-WZRASGWZ 0.3 g/dL 0.0-0.4 (test code = A1G) GYBWB-3-VVMEFEVU 0.6 g/dL 0.4-1.0 (test code = A2G) [...] is not apparent.Perfor med At: HD [facility] [address] [place], [place] [id number] Kyle L MD Ph:[phone] rform ed At: DA [facility] [address] [facility], [place] [id number] h CN MD Ph:[phone] [Automated mess age] The system [employer] generated this result transmit lavon reference range : (). The reference r hugo was not used to interpret this result as normal/abnormal . LACTIC DEHYDROGENASE(LDH)2022-05-24 17:08:00 Test Item Value Reference Range Interpretation Comments LACTIC DEHYDROGENASE(LDH) (test 233 IUnits/L 84-246 N code = LDH) TOTAL IRON BINDING [id number] 17:08:00 Test Item Value Reference Range Interpretation Comments SERUM IRON (test code = IRON) 88 mcg/dL 35-150 N TOTAL IRON BINDING CAPACITY (test 382 mcg/dL 260-445 N code = TIBC) UIBC (test code = UIBC) 294 mcg/dL IRON SATURATION (test code = 23.0 % 14-34 N FESAT) VITAMIN [id number] 17:08:00 Test Item Value Reference Range Interpretation Comments VITAMIN B12 (test code = VITB12) 262 pg/mL 193-986 N FOLIC [id number] 17:08:00 Test Item Value Reference Range Interpretation Comments FOLIC ACID (test code = FOL) 11.3 ng/mL 3.1-17.5 N AG [id number] 17:08:00 Test Item Value Reference Range Interpretation Comments AG CARCINOEMBRYONIC (test code = 0.1 NG/ML 0.0-5.0 N CEA) [place] [id number] 17:08:00 Test Item Value Reference Range Interpretation Comments CA 125 (test 115.0 U/mL 0.0-38.1 A Greta Diagnosti cs code = Electrochemilum inescence CA125) Immunoassay(ECL IA)Values obtained with d ifferent assay methods or kits cannotbe used interchangeably . Results cannot be interpreted asabsolute evidence of the presence or absence of fei gnantdisease. CA27-29, [id number] 17:08:00 Test Item Value Reference Range Interpretation Comments CA27-29, 22.1 U/mL 0.0-38.6 Siemens Duable Chineseaur BIOMIRA (test Immunochemilum inometric code = WX9665) Methodology ( ICMA)Values obtained with d ifferent assay methods or kits cannotbe used interchangeably . Results cannot be inter preted asabsolute evid ence of the presence or abs ence of malignantdiseas e.Performed At: [facility] [address] [place], [place] [id number] Kyle L MD Ph:[phone] BASIC METABOLIC [id number] 04:47:00 Test Item Value Reference Range Interpretation [...] code = 7.8 mg/dL 8.0-10.5 L CA) [id number] 04:47:00 Test Item Value Reference Range Interpretation Comments MAGNESIUM (test code = MAG) 1.80 mg/dL 1.80-2.40 N CBC W/AUTO [id number] 04:37:00 Test Item Value Reference Range Interpretation [...] DIFF REQUIRED (test code NO = MDIFF) [id number] 17:11:00 Test Item Value Reference Range Interpretation Comments HAPTOGLOBIN (test code 137 mg/dL 41-333 Perfo rmed At: DA = HAPT) [facility] [address] [place], [place] [id number] h LIANG RUST Ph:[phone] BASIC METABOLIC [id number] 04:10:00 Test Item Value Reference Range Interpretation [...] code = 8.1 mg/dL 8.0-10.5 N CA) [id number] 04:10:00 Test Item Value Reference Range Interpretation Comments MAGNESIUM (test code = MAG) 1.92 mg/dL 1.80-2.40 N CBC W/AUTO [id number] 03:56:00 Test Item Value Reference Range Interpretation [...] (test code = LDL) NEAR OPTIM AL/ABOVE [id number] PVMJBIIYDG456-9 89 HIGH>GW=919 BRUNILDA Y HIGH*Guidelines provided by the National [facility] terol EducationProa Adult Treatment Panel III SERUM [id number] 05:12:00 Test Item Value Reference Range Interpretation Comments SERUM IRON (test code = IRON) 90 mcg/dL 35-150 N THYROID STIMULATING [id number] 05:12:00 Test Item Value Reference Range Interpretation Comments THYROID STIMULATING 2.69 0.42-5.47 N Results in HORMONE (test code = TSH) mi lli-International Units/mL [id number] 05:12:00 Test Item Value Reference Range Interpretation Comments FERRITIN (test code = BRIDGET) 35.6 ng/mL 11.0-306.8 N RETIC COUNT (AUTOMATED)2022-05-20 05:08:00 Test Item Value Reference Range Interpretation Comments RETIC COUNT (AUTOMATED) (test code = 2.3 % 0.3-2.3 N RETICA) BASIC METABOLIC [id number] 05:00:00 Test Item Value Reference Range Interpretation [...] code = 8.0 mg/dL 8.0-10.5 N CA) [id number] 05:00:00 Test Item Value Reference Range Interpretation Comments MAGNESIUM (test code = MAG) 2.06 mg/dL 1.80-2.40 CBC W/AUTO [id number] 04:59:00 Test Item Value Reference Range Interpretation [...] MANUAL DIFF REQUIRED (test code NO = MAGDA) - CT ABD PELVIS W/O [id number] 00:00:00 [facility] : 1935 Sex: F Name: KELLY SLOAN [facility] : 1935 Age/S: 87 / F [address] [place] [address] Blvd Unit #: [id number] Loc: [place] [address] Phys: Kyler Longoria MD Acct: [id number] Dis Date: Status: ADM IN PHONE #: [phone] Exam Date: 05/20/2022921 FAX #: [phone] Reason: Peritoneal nodularity, breast cancer EXAMS: CPT CODE: [id number] CT ABD PELVIS W/O CONT 41297 PROCEDURE INFORMATION: Exam: CT Abdomen And Pelvis [...] 1 Signed Report (CONTINUED) Name: KELLY SLOAN [facility] Ram[facility]rez : 1935 Age/S: 87 / F [address] [place] [address] Unit #: [id number] Loc: [place] [address] Phys: Kyler Longoria MD Acct: [id number] Dis Date: Status: ADM IN PHONE #: [phone] Exam Date: 05/20/2022921 FAX #: [phone] Reason: Peritoneal nodularity, breast cancer EXAMS: CPT CODE:[id number] CT ABD PELVIS W/O CONT 60302 (Continued) Intraperitoneal space: There is a small [...] short axis series 2, image 78. Urinary bladder:The urinary bladder contains excreted contrast, otherwise unremarkable. Reproductive: The uterus and adnexa are not well delineated on this examination. There are scattered calcifications in the uterus and adnexal regions. There is no gross measurable mass. Bones/joints: The lumbar spine demonstratesmoderate degenerative changes at multiple levels. Soft tissues: There is generalized subcutaneous edema. No focal fluid collection. IMPRESSION: 1. Findings of peritoneal carcinomatosis. 2. Anterior diaphragmatic and mesenteric lymphadenopathy. 3. Limited assessment of the uterus and adnexa by this tech nique with amorphous tissue containing multiple calcifications. Relative [...] 2 Signed Report (CONTINUED) Name: KELLY SLOAN [facility] : 1935 Age/S: 87 / F [address] [place] [address] Unit #: [id number] Loc: [place] [address] Phys: Kyler Longoria MD Acct: [id number] Dis Date: Status: ADM IN PHONE #: [phone] Exam Date: 05/20/2022921 FAX #: [phone] Reason: Peritoneal nodularity, breast cancer EXAMS: CPT CODE: [id number] CT ABD PELVIS W/O CONT 47610 (Continued) CC: Kyler Putnam MD Technologist:Rosalind Sheehan. RT(R)(CT) CTDI: DLP: Trnscb Date/Time: 05/20/2022 (152) Venita Orig Print D/T: S: 05/20/2022 (1527) PAGE 3 Signed ReportURINALYSIS [id number] 07:24:00 Test Item Value Reference Range Interpretation [...] 0-5 /HPF NONE SEEN SQU) CBC W/AUTO [id number] 04:25:00 Test Item Value Reference Range Interpretation [...] REQUIRED (test code NO = MDIFF) RBC [id number] 04:25:00 Test Item Value Reference Range Interpretation Comments ANISOCYTOSIS (test code = ANISO) 1+ POLYCHROMASIA (test code = POLC) 1+ HYPOCHROMIA (test code = HYPO) 1+ MICROCYTOSIS (test code = MICR) 1+ BASIC METABOLIC [id number] 04:14:00 Test Item Value Reference Range Interpretation [...] code = 7.7 mg/dL 8.0-10.5 L CA) [id number] 04:14:00 Test Item Value Reference Range Interpretation Comments MAGNESIUM (test code = MAG) 1.77 mg/dL 1.80-2.40 L - DUP VEIN [id number] 00:00:00 [facility] 1935 Sex: F Name: KELLY SLOAN [facility] : 1935 Age/S: 87 / F [address] [place] [address] Blvd Unit #: [id number] Loc: [place] [address] Phys: Analia Espinal [employer] Acct: [id number] Dis Date:Status: ADM IN PHONE #: [phone] Exam Date: 05/19/202248 FAX #: [phone] Reason: PRE CABGEVAL EXAMS: CPT CODE: [id number] DUP VEIN JOSE ENRIQUE 18199 PROCEDURE INFORMATION: Exam: US Duplex Lower Extremity Veins; Vein mapping Exam date and time: 05/19/2022 5:19 AM Age: 87 years old Clinical indication: Screening exam; Pre cabg eval; End-stage renal disease, operative planning for hemodialysis accesscreation TECHNIQUE: Imaging protocol: Real-time duplex ultrasound of the Lower Extremities with 2-D gomze scale, color Doppler flow and spectral waveform analysis with image documentation. Complete exam focused on the bilateral lower extremity veins for vein mapping. Other technique: Grayscale, color Doppler, and spectral Doppler evaluation of the bilateral lower extremity veins and arteries performed without a tourniquet for purposes of vascular mapping for hemodialysis access creation. COMPARISON:No relevant prior studies available. FINDINGS: Venous evaluation [...] 1 Signed Report (CONTINUED) Name: KELLY SLOAN [facility] : 1935 Age/S: 87 / F [address] [place] [address] Unit #: [id number] Loc: [place] [address] Phys: Analia Espinal NP Acct:[id number] Dis Date: Status: ADM IN PHONE #: [phone] Exam Date: 05/19/2022 0548 FAX #: [phone] Reason: PRE CABG EVAL EXAMS: CPT CODE: [id number] DUP VEIN JOSE ENRIQUE 31337 (Continued) CC: Analia Peñaloza NP; Frank Putnam MD Technologist: Nannette Maldonado RDMS(AB)(OB) Trnscb Date/Time: 05/19/2022 (617) VincenzoAR21 Orig Print D/T: S: 05/19/2022 (618) Probe: PAGE 2 Signed Report- DUP EXTRACRANIAL [id number] 00:00:00 [facility] : 1935 Sex: F Name: KELLY SLOAN [facility] : 1935 Age/S: 87 / F [address] [place] [address] Blvd Unit #: [id number] Loc: [place] [address] Phys: Analia Espinal [employer] Acct: [id number] Dis Date:Status: ADM IN PHONE #: [phone] Exam Date: 05/19/2022 0548 FAX #: [phone] Reason: PRE CABGEVAL EXAMS: CPT CODE: [id number] DUP EXTRACRANIAL JOSE ENRIQUE 08753 PROCEDURE INFORMATION: Exam: US Duplex Bilateral Extracranial [...] M.D PAGE 1 Signed Report (CONTINUED) Name: SLOANKELLY M [facility] : 1935 Age/S: 87 / F [address] [place] [address] Blvd Unit #: [id number] Loc: [place] [address] Phys: Analia Sanders NP Acct: [id number] Dis Date: Status: ADM IN PHONE #: [phone] Exam Date: 05/19/2022 0548 FAX #: [phone] Reason: PRE CABG EVAL EXAMS: CPT CODE: [id number] DUP EXTRACRANIAL JOSE ENRIQUE 66460 (Continued) CC: Analia Sanders [employer]; Frank Putnam MD Technologist: Nannette Maldonado RDMS(AB)(OB) Trnscb Date/Time: 05/19/2022 (06) t.JACQUELIN.AR21 Orig Print D/T: S: 05/19/2022 (638) Probe: PAGE 2 Signed Report- CT CHEST W/O [id number] 00:00:00[facility] : 1935 Sex: F Name: KELLY SLOAN [facility] Home [facility] : 1935 Age/S: 87 / F [address] [place] [address] Blvd Unit #: [id number] Loc: [place] [address] Phys: Analia Espinal [employer] Acct: [id number] Dis Date: Status: ADM IN PHONE #: [phone] Exam Date: 05/19/2022 1047 FAX #: [phone] Reason: PRE CABG E SPRING EXAMS: CPT CODE: [id number] CT CHEST W/O CONTRAST 38539 PROCEDURE INFORMATION: Exam: CT Chest Without Contrast; [...] 1 Signed Report (CONTINUED) Name: KELLY SLOAN [facility] : 1935 Age/S: 87 / F [address] [place] [address] Blvd Unit #: [id number] Loc: [place], [place] Phys: Analia Sanders [employer]TER Acct: [id number] Dis Date: Status: ADM IN PHONE #: [phone] Exam Date: 05/19/2022 1047 FAX #: [phone] Reason: PRE CABG EVAL EXAMS: CPT CODE: [id number] CT CHEST W/O CONTRAST 61688 (Continued) Liver: The liver is hyperattenuating, greater than 80 Hounsfield units. Otherwise normal morphology through visualized portions. Gallbladder and bile ducts: Hyperattenuation of gallbladder contents compatible with vicarious excretion of contrast versus sludge. No pericholecystic edema. Intraperitoneal space: Motion limited survey of upper abdominal contents. Perit mora nodularity in the left upper quadrant with [...] 2 Signed Report (CONTINUED) Name: KELLY SLOAN [facility] : 1935 Age/S: 87 / F [address] [place] [address] Blvd Unit #: [id number] Loc: [place] [address] Phys: Analia Sanders NP Acct: [id number] Dis Date: Status: ADM IN PHONE #: [phone] Exam Date: 05/19/2022 1047 FAX #: [phone] Reason: PRE CABGEVAL EXAMS: CPT CODE: [id number] CT CHEST W/O CONTRAST 44429 (Continued) CC: Analia Sanders [employer]; Frank Putnam MD Technologist:RT Tiffany(R)(CT) CTDI: DLP: Trnscb Date/Time: 05/19/2022 (132) tROXANNA Orig Print D/T: S: 05/19/2022 (132) PAGE 3 Signed Report GLUCOSE [id number] 21:58:00 Test Item Value Reference Range Interpretation Comments GLUCOSE BEDSIDE (test 134 MG/DL 70-110 H Perfor med by certified code = GLUBED) 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
[2022-12-24] MEDS ORDERED: LEVALBUTEROL 1.25 MG/3 ML NEB ONE (14:48)
[2022-12-24] MEDS ORDERED: FUROSEMIDE 40 MG/4 ML VIAL ONE (14:48)
[2022-12-24 14:56] LABS: Absolute Lymphocytes (CBC) 0.8 K/uL (0.7-4.9); Hematocrit 22.8 % (36.0-45.0); Lymphocytes % 17.1 % (15.3-44.8); MCV 83.3 fL (80-100); MPV 6.6 fL (7.6-11.3); RBC Red Blood Cell Count 2.74 M/uL (3.86-4.86)
[2022-12-24 15:12] LABS: Albumin 2.9 g/dL (3.4-5.0); Bilirubin Direct 0.5 mg/dL (0-0.2); Bilirubin Total 1.1 mg/dL (0.2-1.0); Magnesium 2.2 mg/dL (1.6-2.4); Potassium 3.5 mmol/L (3.5-5.1); Protein, Total 6.5 g/dL (6.4-8.2); Troponin High Sensitivity 39.6 pg/mL (<58.9)
[2022-12-24 15:16] LABS: Protime INR 1.04
--- NOTE | 2022-12-24 15:34 | RAD REPORT ---
EXAM DESCRIPTION: CT - Thorax Wo Con - 12/24/2022 3:19 pm CLINICAL HISTORY: sob COMPARISON: December 04, 2022 CT TECHNIQUE: Computed axial tomography of the chest was obtained. Contrast was not requested. All CT scans are performed using dose optimization technique as appropriate and may include automated exposure control or mA/KV adjustment according to patient size. FINDINGS: The evaluation of mediastinum, mook and vessels is limited secondary to lack of IV contras t administration. Mild bilateral pulmonary opacities. Cardiomegaly. Moderate to large right and moderate left pleural effusions with bibasilar atelectasis. A catheter enters the left lateral lower pleural space. It extends towards midline. It then extends s uperiorly and laterally. The tip lies within the left upper pleural space near the chest wall. IMPRESSION: Mild bilateral pulmonary opacities may represent mild pulmonary edema Moderate to large right and moderate left pleural effusions A catheter enters the left lateral lower pleural space. It extends towards midline. It then extends s uperiorly and laterally. The tip lies within the left upper pleural space near the chest wall.
--- NOTE | 2022-12-24 15:50 | ER ---
Nurse's Notes [facility] Name: Minal Phillips Age: 87 yrs Sex: Female : 1935 Arrival Date: 12/24/2022 Time: 12:40 Bed 14 Private MD: Diagnosis: Malignant pleural effusion;Metastatic ovarian cancer Presentation: 12/24 12:58 Chief complaint: EMS states: [facility] called because left pleur-x drain kc6 is not draining correctly. Coronavirus screen: Vaccine status: Patient reports receiving the 2nd dose of the covid vaccine. At this time, the client does not indicate any symptoms associated with coronavirus-19. Ebola Screen: No symptoms or risks identified at this time. Initial Sepsis Screen: Does the patient meet any 2 criteria? No. Patient's initial sepsis screen is negative. Does the patient have a suspected source of infection? No. Patient's initial sepsis screen is negative. Risk Assessment: Do you want to hurt yourself or someone else? Patient reports no desire to harm self or others. Onset of symptoms. 12:58 Method Of Arrival: EMS: [facility] kc6 12:58 Acuity: JASMINA 3 kc6 Triage Assessment: 13:01 General: Appears in no apparent distress. comfortable, Behavior is calm, cooperative, kc6 appropriate for age. Pain: Denies pain. EENT: No signs and/or symptoms were reported regarding the EENT system. Neuro: Cortes Agitation-Sedation Scale (RASS): 0 - Alert and Calm Level of Consciousness is awake, alert, obeys commands, Oriented to person, place, time, situation, Appropriate for age. Cardiovascular: Heart tones S1 S2 present Capillary refill < 3 seconds. Respiratory: Airway is patent Trachea midline Respiratory effort is even, pursed lip, Respiratory pattern is regular, symmetrical, Breath sounds with wheezes bilaterally. GI: No signs and/or symptoms were reported involving the gastrointestinal system. : No signs and/or symptoms were reported regarding the genitourinary system. Derm: No signs and/or symptoms reported regarding the dermatologic system. Skin is intact, Skin is pink, warm \T\ dry. Musculoskeletal: No signs and/or symptoms reported regarding the musculoskeletal system. Circulation, motion, and sensation intact. Capillary refill < 3 seconds, Range of motion: intact in all extremities. Historical: - Allergies: 13:01 PENICILLINS; kc6 - PMHx: 13:01 CAD; Congestive heart failure; GERD; Hypertensive disorder; pulmonary edema; Uterine CA;kc6 - PSHx: 13:01 Appendectomy; tumor removal RT breast; kc6 - Immunization history:: Client reports receiving the 2nd dose of the Covid vaccine, Flu vaccine is up to date. - Social history:: Smoking status: Patient denies any tobacco usage or history of. Screenin:02 [facility] ED Fall Risk Assessment (Adult) History of falling in the last 3 months, kc6 including since admission No falls in past 3 months (0 pts) Confusion or Disorientation No (0 pts) Intoxicated or Sedated No (0 pts) Impaired Gait No (0 pts) Mobility Assist Device Used No (0 pt) Altered Elimination No (0 pt) Score/Fall Risk Level 0 - 2 = Low Risk Oriented to surroundings, Maintained a safe environment, Educated pt \T\ family on fall prevention, incl call for assistance when getting out of bed, Assessed \T\ reinforced patient's understanding of fall precautions, Hourly rounding (assess needs \T\ fall precautionary measures) done. Abuse screen: Denies threats or abuse. Denies injuries from another. Nutritional screening: No deficits noted. Tuberculosis screening: No symptoms or risk factors identified. Assessment: 13:04 Reassessment: spoke with the nurse at [facility]. stated they have been having great kc6 difficulty draining it and that this is not new for the patient. 13:45 Reassessment: Patient appears in no apparent distress at this time. No changes from kc6 previously documented assessment. Patient and/or family updated on plan of care and expected duration. Pain level reassessed. Patient is alert, oriented x 3, equal unlabored respirations, skin warm/dry/pink. Patient denies pain at this time. 14:45 Reassessment: Patient appears in no apparent distress at this time. No changes from kc6 previously documented assessment. Patient and/or family updated on plan of care and expected duration. Pain level reassessed. Patient is alert, oriented x 3, equal unlabored respirations, skin warm/dry/pink. Patient denies pain at this time. 15:42 Reassessment: Patient appears in no apparent distress at this time. No changes from kc6 previously documented assessment. Patient and/or family updated on plan of care and expected duration. Pain level reassessed. Patient is alert, oriented x 3, equal unlabored respirations, skin warm/dry/pink. Patient denies pain at this time. 16:23 Reassessment: Uriel Phillips (son) [phone]. kc 16:42 Reassessment: Patient appears in no apparent distress at this time. No changes from kc6 previously documented assessment. Patient and/or family updated on plan of care and expected duration. Pain level reassessed. Patient is alert, oriented x 3, equal unlabored respirations, skin warm/dry/pink. 17:42 Reassessment: Patient appears in no apparent distress at this time. No changes from kc6 previously documented assessment. Patient and/or family updated on plan of care and expected duration. Pain level reassessed. Patient is alert, oriented x 3, equal unlabored respirations, skin warm/dry/pink. Patient denies pain at this time. 18:41 Reassessment: Patient appears in no apparent distress at this time. No changes from kc6 previously documented assessment. Patient and/or family updated on plan of care and expected duration. Pain level reassessed. Patient is alert, oriented x 3, equal unlabored respirations, skin warm/dry/pink. Patient denies pain at this time. 19:00 Reassessment: Patient appears in no apparent distress at this time. Patient and/or jb4 family updated on plan of care and expected duration. Pain level reassessed. Patient is alert, oriented x 3, equal unlabored respirations, skin warm/dry/pink. 20:18 Reassessment: Patient appears in no apparent distress at this time. Patient and/or jb4 family updated on plan of care and expected duration. Pain level reassessed. Patient is alert, oriented x 3, equal unlabored respirations, skin warm/dry/pink. 21:00 Reassessment: Patient appears in no apparent distress at this time. Patient and/or jb4 family updated on plan of care and expected duration. Pain level reassessed. Patient is alert, oriented x 3, equal unlabored respirations, skin warm/dry/pink. 22:00 Reassessment: Patient appears in no apparent distress at this time. Patient and/or jb4 family updated on plan of care and expected duration. Pain level reassessed. Patient is alert, oriented x 3, equal unlabored respirations, skin warm/dry/pink. Report given to the receiving nurse. 23:45 Reassessment: Patient appears in no apparent distress at this time. Patient and/or jb4 family updated on plan of care and expected duration. Pain level reassessed. Patient is alert, oriented x 3, equal unlabored respirations, skin warm/dry/pink. transferring EMS service at the bedside. Vital Signs: 12:58 BP 144 / 66; Pulse 102; Resp 25 S; Temp 97.7(O); Pulse Ox 100% on 3 lpm NC; Weight kc6 61.23 kg (R); Height 5 ft. 3 in. (160.02 cm) (R); Pain 0/10; 13:45 BP 129 / 57; Pulse 96; Resp 15 S; Pulse Ox 100% on R/A; Pain 0/10; kc6 14:45 BP 137 / 71; Pulse 92; Resp 18 S; Pulse Ox 100% on R/A; Pain 0/10; kc6 15:42 BP 135 / 55; Pulse 103; Resp 23 S; Pulse Ox 97% on 3 lpm NC; Pain 0/10; kc6 16:42 BP 129 / 58; Pulse 100; Resp 21 S; Pulse Ox 99% on 3 lpm NC; Pain 0/10; kc6 17:42 BP 130 / 55; Pulse 79; Resp 18 S; Pulse Ox 100% on 3 lpm NC; Pain 0/10; kc6 18:41 BP 99 / 77; Pulse 92; Resp 20 S; Pulse Ox 100% on R/A; Pain 0/10; kc6 19:16 BP 107 / 44; Pulse 91; Resp 21 S; Pulse Ox 98% on 3 lpm NC; kc6 20:18 BP 107 / 46; Pulse 84; Resp 22; Pulse Ox 98% on 3 lpm NC; jb4 21:35 BP 109 / 41; Pulse 95; Resp 24; Pulse Ox 100% on 3 lpm NC; jb4 22:00 BP 102 / 53; Pulse 96; Resp 21; Pulse Ox 96% on 3 lpm NC; jb4 23:05 BP 121 / 79; Pulse 99; Resp 24; Pulse Ox 95% on 3 lpm NC; jb4 12:58 Body Mass Index 23.91 (61.23 kg, 160.02 cm) kc6 ED Course: 12:40 Patient arrived in ED. eb 12:41 Chapin Billingsley PA is PHCP. jm 12:41 Julio Rouse MD is Attending Physician. [facility] 12:44 Kristin Elizondo, REINA is Primary Nurse. kc 13:01 Triage completed. kc6 13:01 Arm band placed on. EKG completed in triage. Results shown to MD. EKG completed in [facility] triage. Results shown to MD. 13:02 Patient has correct armband on for positive identification. Bed in low position. Call [facility] light in reach. Side rails up X2. Adult w/ patient. 13:45 Chest Single View XRAY In Process Unspecified. EDMS 14:52 Accessed Port-a-Cath. Blood collected. using ,sterile technique, per hospital protocol. vg1 Clean \T\ dry. Dressing intact. Good blood return. Flushes easily. PowerLoc Max; 20 Gx 1.5 in. 15:[address] In Process Unspecified. EDMS 15:[address] [facility] 15:48 Jose More MD is Hospitalizing Provider. m 16:01 SARS RAPID Sent. 6 16:01 Type And Screen Sent. [facility] 16:39 Jose More MD is Hospitalizing Provider. [facility] 23:45 No provider procedures requiring assistance completed. Patient transferred, IV remains jb4 in place. Administered Medications: 14:51 Drug: Xopenex (levalbuterol) (3) 1.25 mg Route: Inhalation; [facility] 16:01 Follow up: Response: No adverse reaction [facility] 14:52 Drug: Lasix (furosemide) 40 mg Route: IVP; Site: Port-a-cath; 6 16:01 Follow up: Response: No adverse reaction [facility] Medication: 23:45 VIS not applicable for this client. jb4 Outcome: 15:49 Decision to Hospitalize by Provider. jmm 16:39 Decision to Hospitalize by Provider. jmm 20:46 ER care complete, transfer ordered by . sd2 23:45 Transferred by ground EMS [facility]. to [facility], Transfer form jb4 completed. X-rays sent w/ patient. 23:45 Condition: stable 23:45 Discharge instructions given to patient, Instructed on the need for transfer, Demonstrated understanding of instructions. 23:46 Patient left the ED. jb4 Signatures: Dispatcher [employer] EDMS Chpain Billingsley PA PA jmm Bryson, James RN RN jb4 Antoinette Alicea Victoria RN RN vg1 Yadira Jones MD MD sd2 Kristin Elizondo RN RN kc6 Corrections: (The following items were deleted from the chart) 19:16 18:41 BP 129 / 47; Pulse 92bpm; Resp 20bpm; Spontaneous; Pulse Ox 100% RA; Pain 0/10; kc6 kc6
--- NOTE | 2022-12-24 15:50 | EDPHYS ---
Physician Documentation [facility] Name: Minal Phillips Age: 87 yrs Sex: Female : 1935 Arrival Date: 12/24/2022 Time: 12:40 Bed 14 Private MD: ED Physician Julio Rouse HPI: 12/24 15:45 This 87 yrs old Female presents to ER via EMS with complaints of sob. jmm 15:45 The patient has shortness of breath at rest. Onset: The symptoms/episode began/occurred jmm gradually, today. Duration: The symptoms are continuous. The patient's shortness of breath is aggravated by nothing, is alleviated by nothing. Associated signs and symptoms: Pertinent negatives: fever. This is an 87 year old female with a history fo chf, GERD, htn that presents to the ED with complaints of sob, wheezing. Family noticed her pleural catheter has not been draining and concerned this may be the cause. . Historical: - Allergies: 13:01 PENICILLINS; kc6 - PMHx: 13:01 CAD; Congestive heart failure; GERD; Hypertensive disorder; pulmonary edema; Uterine CA;kc6 - PSHx: 13:01 Appendectomy; tumor removal RT breast; kc6 - Immunization history:: Client reports receiving the 2nd dose of the Covid vaccine, Flu vaccine is up to date. - Social history:: Smoking status: Patient denies any tobacco usage or history of. ROS: 15:45 Constitutional: Negative for fever, chills, and weight loss, Cardiovascular: Negative jmm for chest pain, palpitations, and edema. 15:45 Respiratory: Positive for shortness of breath. 15:45 All other systems are negative. Exam: 15:45 Constitutional: This is a well developed, well nourished patient who is awake, alert, jmm and in no acute distress. Head/Face: atraumatic. Eyes: EOMI, no conjunctival erythema appreciated ENT: Moist Mucus Membranes Neck: Trachea midline, Supple Chest/axilla: Normal chest wall appearance and motion. Cardiovascular: Regular rate and rhythm. No edema appreciated Abdomen/GI: Non distended 15:45 Skin: General appearance color normal MS/ Extremity: Moves all extremities, no obvious deformities appreciated, no edema noted to the lower extremities Neuro: Awake and alert Psych: Behavior is normal, Mood is normal, Patient is cooperative and pleasant 15:45 Respiratory: mild respiratory distress is noted, Respirations: Breath sounds: wheezing: that is mild, is scattered. Vital Signs: 12:58 BP 144 / 66; Pulse 102; Resp 25 S; Temp 97.7(O); Pulse Ox 100% on 3 lpm NC; Weight kc6 61.23 kg (R); Height 5 ft. 3 in. (160.02 cm) (R); Pain 0/10; 13:45 BP 129 / 57; Pulse 96; Resp 15 S; Pulse Ox 100% on R/A; Pain 0/10; kc6 14:45 BP 137 / 71; Pulse 92; Resp 18 S; Pulse Ox 100% on R/A; Pain 0/10; kc6 15:42 BP 135 / 55; Pulse 103; Resp 23 S; Pulse Ox 97% on 3 lpm NC; Pain 0/10; kc6 16:42 BP 129 / 58; Pulse 100; Resp 21 S; Pulse Ox 99% on 3 lpm NC; Pain 0/10; kc6 17:42 BP 130 / 55; Pulse 79; Resp 18 S; Pulse Ox 100% on 3 lpm NC; Pain 0/10; kc6 18:41 BP 99 / 77; Pulse 92; Resp 20 S; Pulse Ox 100% on R/A; Pain 0/10; kc6 19:16 BP 107 / 44; Pulse 91; Resp 21 S; Pulse Ox 98% on 3 lpm NC; kc6 20:18 BP 107 / 46; Pulse 84; Resp 22; Pulse Ox 98% on 3 lpm NC; jb4 21:35 BP 109 / 41; Pulse 95; Resp 24; Pulse Ox 100% on 3 lpm NC; jb4 22:00 BP 102 / 53; Pulse 96; Resp 21; Pulse Ox 96% on 3 lpm NC; jb4 23:05 BP 121 / 79; Pulse 99; Resp 24; Pulse Ox 95% on 3 lpm NC; jb4 12:58 Body Mass Index 23.91 (61.23 kg, 160.02 cm) [facility] MDM: 12:49 Patient medically screened. [facility] 15:47 Data reviewed: vital signs, nurses notes. Consideration of Admission/Observation [facility] Patient was admitted/placed on observation. Management of patient was discussed with the following: Hospitalist: Titus Bear NP. I considered the following discharge prescriptions or medication management in the emergency department Medications were administered in the Emergency Department. See MAR. Discussion of test interpretation with radiology: I had a discussion with radiology regarding a test interpretation. Dr. Kay, correct placement of catheter. Counseling: I had a detailed discussion with the patient and/or guardian regarding: the historical points, exam findings, and any diagnostic results supporting the discharge/admit diagnosis, lab results, radiology results, the need for outpatient follow up, the need for further work-up and treatment in the hospital. 18:36 ED course: Spoke with Jesus More regarding admission, he spoke with both Dr. Julian and rn Dr. Sheehan, who state that the pleurx catheter is not draining because images appear to show loculated effusion. They also told Jesus More that right larger pleural effusion could maybe benefit from intervention with another pleurx catheter vs chest tube but they do not want to place a catheter on a hospice patient. Dr. More recommends either transfer for CV surgery evaluation vs discharge home with hospice and lasix. They do not want patient admitted here. Family member contacted and he prefers transfer for further evaluation and to see if dyspnea can improve with other treatment. . 20:14 ED course: Discussed case with Thoracic Surgeon, Dr. Aceves, at [address] agrees to accept the patient for transfer at this time. . 20:42 ED course: [place]iscussed case [place] [facility] [place] [facility] patient for transfer at this time. Pt is stable for transfer at this time. . 12/24 14:19 Order name: Basic Metabolic Panel; Complete Time: 15:12 m 12/24 14:19 Order name: CBC with Diff; Complete Time: 14:57 jmm 12/24 14:19 Order name: LFT's; Complete Time: 15:12 m 12/24 14:19 Order name: Magnesium; Complete Time: 15:12 m 12/24 14:19 Order name: NT PRO-BNP; Complete Time: 15:12 m 12/24 14:19 Order name: PT-INR; Complete Time: 15:16 m 12/24 13:01 Order name: Chest Single View XRAY; Complete Time: 14:28 jmm 12/24 14:19 Order name: Troponin HS; Complete Time: 15:12 [facility] 12/24 14:19 Order name: EKG; Complete Time: 14:19 [facility] 12/24 14:20 Order name: Chest Wo Con CT; Complete Time: 15:35 [facility] 12/24 14:58 Order name: Type And Screen; Complete Time: 18:02 [facility] 12/24 15:50 Order name: SARS RAPID; Complete Time: 16:29 [facility] 12/24 14:19 Order name: Cardiac monitoring; Complete Time: 14:20 [facility] 12/24 14:19 Order name: EKG - Nurse/Tech; Complete Time: 14:52 [facility] 12/24 14:19 Order name: IV Saline Lock; Complete Time: 14:42 [facility] 12/24 14:19 Order name: Labs collected and sent; Complete Time: 14:42 [facility] 12/24 14:19 Order name: O2 Per Protocol; Complete Time: 14:20 [facility] 12/24 14:19 Order name: O2 Sat Monitoring; Complete Time: 14:20 jm Administered Medications: 14:51 Drug: Xopenex (levalbuterol) (3) 1.25 mg Route: Inhalation; 6 16:01 Follow up: Response: No adverse reaction 6 14:52 Drug: Lasix (furosemide) 40 mg Route: IVP; Site: Port-a-cath; kc6 16:01 Follow up: Response: No adverse reaction 6 Disposition Summary: 12/24/22 20:46 Transfer Ordered Transfer Location: [facility] sd2 Reason: Higher level of care sd2 Condition: Stable(12/24/22 20:46) sd2 Problem: an acute exacerbation(12/24/22 20:46) sd2 Symptoms: are unchanged(12/24/22 20:46) sd2 Accepting Physician[place] [facility] [place](12/24/22 23:46) jb4 Diagnosis - Malignant pleural effusion sd2 - Metastatic ovarian cancer sd2 Forms: - Medication Reconciliation Form sd2 - SBAR form sd2 Signatures: Dispatcher [employer] EDChapin Brown PA PA m Julio Rouse MD MD rn Bryson, James, RN RN jb4 Yadira Jones MD MD sd2 Kristin Elizondo RN RN kc6 Corrections: (The following items were deleted from the chart) 16:24 15:49 Observation jmm jmm 16:24 15:49 ArgenisJose retana jmm jmm 16:24 15:49 Telemetry/MedSurg (observation) jmm jmm 16:24 15:49 Stable jmm jmm 16:24 15:49 new jmm jmm 16:24 15:49 are unchanged jmm jmm 16:24 15:49 Standard jmm jmm 16:24 15:49 jmm jmm 16:24 15:49 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 . sd2 23:46 20:46 [facility] [place] desmond jb4
[2022-12-24 16:28] LABS: SARS-CoV-2 Antigen Rapid Res Negative (Negative)
[2022-12-24 23:51] VITALS: TEMP 97.7
[2022-12-25 00:17] VITALS: BP 121/79; O2SAT 95
== END 2022-12-24 23:46 | disposition short-term general hospital (02) ==
LOC: ER 12:17 → SUPCPDRO 12:17 → ER 23:46
DX: C79.60 Secondary malignant neoplasm of unspecified ovary (principal); J91.0 Malignant pleural effusion; I50.9 Heart failure, unspecified; Z20.822 Contact with and (suspected) exposure to COVID-19; Z88.0 Allergy status to penicillin
CPT/HCPCS: 85025; 80048; 36415; 86900; 83735; 86850; 85610; 86901; 80076; 84484; 83880; 71250; 71045; 87811; J7614; J1940; 93005; 96374; 99285